=== PATIENT | female | born 1955 | race Caucasian/White ===

== ENCOUNTER → 2018-01-01 15:35 | Outpatient (CLI) | payer MEDICARE, SELFPAY ==
--- NOTE | 2018-01-01 15:37 | RAD_ITS ---
STUDY: X-RAY - LUMBOSACRAL SPINE REASON FOR EXAM: Female, 62 years old. Low back pain TECHNIQUE: 7 view(s) of the lumbosacral spine were obtained. Flexion and extension views obtained COMPARISON: 04/12/2017 FINDINGS: No significant change. Normal lumbar lordosis. There is no substantial scoliosis. There is normal alignment of the vertebrae. Decreased range of motion with flexion and extension but no subluxations. Normal vertebral bodies and endplates. Degenerative disc disease at L5-S1, stable. Otherwise normal disc space heights. Electrical lead runs into the spinal canal at the level of L2-L3. Normal bilateral sacral ala, sacroiliac joints, and visualized sacrum. There is atherosclerotic calcification of the abdominal aorta without a demonstrated aneurysm. Stable right common iliac stent RAD/L/S Spine Comp/w Bending Views IMPRESSION: No change. No acute abnormality. Degenerative disc disease at L5-S1. Electronically Signed: Mika Hanley MD at 23:51 EST , Service support ,
== END ==
PROVIDERS: Visit Provider Orthopaedic Surgery
DX: M54.5 Low back pain (principal)
CPT/HCPCS: 72114

== ENCOUNTER → 2018-01-16 15:58 | Outpatient (CLI) | payer MEDICARE, SELFPAY ==
--- NOTE | 2018-01-16 16:06 | MRI_ITS ---
STUDY: MRI LUMBAR SPINE WITHOUT CONTRAST REASON FOR EXAM: Female, 62 years old. Back pain which radiates down the right TECHNIQUE: Standardized fat and water weighted pulse sequences were obtained in the sagittal and axial planes. COMPARISON: None FINDINGS: There is a 19 degrees lumbar scoliosis with convexity to the left. There is normal alignment of the vertebrae. There are no acute fractures and no abnormal marrow infiltrative processes. There is narrowing of the L5-S1 disc space. The rest of the disc spaces are of normal height and signal intensity. The conus medullaris terminates at L1. T12-L1: Normal endplates. Normal disc height, hydration and morphology. Normal bilateral facet joints. Normal central canal and bilateral lateral recesses. Normal bilateral intervertebral neural foramina. Normal lumbar lordosis. There is no substantial scoliosis. Normal conus medullaris that terminates at the L1-2: Normal endplates. Normal disc height, hydration and morphology. Normal bilateral facet joints. Normal central canal and bilateral lateral recesses. Normal bilateral intervertebral neural foramina. L2-3: Normal endplates. Normal disc height, hydration and morphology. Normal bilateral facet joints. Normal central canal and bilateral lateral recesses. Normal bilateral intervertebral neural foramina. L3-4: Normal endplates. Normal disc height, hydration and morphology. Normal bilateral facet joints. Normal central canal and bilateral lateral recesses. Normal bilateral intervertebral neural foramina. L4-5: Normal endplates. Normal disc height, hydration and morphology. Normal bilateral facet joints. Normal central canal and bilateral lateral recesses. Normal bilateral intervertebral neural foramina. L5-S1: Disc space narrowing with Modic endplate changes and small marginal osteophytes but no focal disc protrusion or extrusion and no central canal stenosis. Minimal degenerative changes involving the facet joints.. 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 No focal disc protrusions or extrusions and no central canal stenosis. A mild 19 degree lumbar scoliosis with convexity to the left Electronically Signed: Erasmo Lagunas, at 4:45 EST Tel , Service support ,
== END ==
PROVIDERS: Visit Provider Orthopaedic Surgery
DX: M54.5 Low back pain (principal); R53.1 Weakness
CPT/HCPCS: 72148

== ENCOUNTER → 2018-01-28 11:10 | Outpatient (CLI) | payer MEDICARE, SELFPAY ==
[2018-01-28 14:07] LABS: Absolute Lymphocyte Count 1.57 X10^3/ul (0.83-4.51); Absolute Neutrophil Count 7.3 X10^3/uL (2.0-7.7); Basophil# 0.03 X10^3/uL; Basophil% 0.3 % (0-1); Eosinophil# 0.12 X10^3/uL; Eosinophils% 1.2 % (0-5); Hemoglobin 15.1 g/dl (12.0-15.0); Lymphocyte # 1.57 X10^3/ul (4.0); Lymphocyte % 15.8 % (19-41); Mean Corp Hgb Conc 33.6 g/gl (32-36); Mean Corpuscular Hgb 29.8 pg (27.0-32.0); Mean Corpuscular Volume 88.9 fL (81-99); Mean Platelet Vol. 10.7 fl (6.2-12.0); Monocyte# 0.85 X10^3/uL; Monocyte% 8.6 % (0-10); Neutrophil % 73.7 % (47-70); Platelet Count 201 K/mm3 (150-450); RBC Distribution Width CV 14.3 % (11.6-14.6); RBC Distribution Width SD 46.1 fl (35.1-43.9); Red Blood Count 5.06 M/mm3 (4.2-5.4); White Blood Count 9.9 K/mm3 (4.4-11.0)
[2018-01-28 14:08] LABS: POSITIVE COUNT NO; POSITIVE DIFFERENTIAL NO; POSITIVE MORPHOLOGY NO
[2018-01-28 14:33] LABS: Vitamin B12 534 pg/mL (211-911); Vitamin D,25 Hydroxy 51.2 ng/mL (29.95-100.01)
[2018-01-28 14:37] LABS: AST(SGOT) 20 U/L (15-37); Alanine Aminotransfer ALT/SGPT 30 U/L (13-56); Albumin, Serum 3.7 g/dL (3.2-5.0); Alkaline Phosphatase 128 U/L (45-117); Anion Gap 10 (5-15); BUN 19 mg/dL (7-18); BUN/Creat Ratio 28.6 RATIO (10-20); CRP 4.81 mg/L (0.0-3.0); Calcium,Total 8.9 mg/dL (8.5-10.1); Chloride 105 mmol/L (98-107); Creatinine, Serum 0.66 mg/dL (0.55-1.02); EST Glomerular Filtration Rate 95 mL/min (>60); Est Glom Filt Rate - Afr Amer 115 mL/min (>60); Ferritin 75 ng/mL (8-252); Free T3 2.2 pg/mL (2.18-3.98); Globulin 3.8 g/dL (2.2-4.2); Glucose 86 mg/dL (74-106); Iron 82 ug/dL (50-170); Protein, Total 7.5 g/dL (6.4-8.2); Sodium Level 140 mmol/L (136-145); T4 Free Direct 1.25 ng/dL (0.76-1.46); Thyroid Stim Hormone (TSH) 0.81 uIU/mL (0.358-3.74)
[2018-01-28 14:45] LABS: PTHIN 49.5 pg/mL (18.4-80.1)
[2018-01-30 14:34] LABS: ANTINUCLEAR ANTIBODIES DIRECT Negative (Negative)
[2018-02-03 06:22] LABS: Copper, Serum or Plasma 123 ug/dL (72-166); Vitamin A, Retinol 48 ug/dL (26-82)
== END ==
PROVIDERS: Family Provider Family Medicine; PCP Family Medicine; Visit Provider Family Medicine
DX: I25.10 Atherosclerotic heart disease of native coronary artery without angina pectoris (principal); E03.9 Hypothyroidism, unspecified; G62.9 Polyneuropathy, unspecified; E55.9 Vitamin D deficiency, unspecified; L65.9 Nonscarring hair loss, unspecified
CPT/HCPCS: 36415; 80053; 82306; 82525; 82607; 82728; 82746; 83540; 83970; 84439; 84443; 84481; 84590; 85025; 86038; 86140

== ENCOUNTER 2018-02-01 17:22 | Emergency (ER) | payer MEDICARE, SELFPAY ==
[2018-02-01 17:23] VITALS: BP 116/91; PULSE 98; RESP 16; TEMP 36.8; O2SAT 97; BMI 22.8
--- NOTE | 2018-02-01 18:52 | CT_ITS ---
STUDY: CT ABDOMEN AND PELVIS WITH CONTRAST REASON FOR EXAM: Female, 62 years old. Right groin pain and low back pain. History of coronary artery disease with carotid surgery and brain aneurysm coiling. TECHNIQUE: Transaxial images were obtained from the dome of the diaphragm to the symphysis pubis without oral contrast. 100 ml of Isovue 300 contrast was administered. Sagittal and coronal images were reconstructed. Individualized dose optimization techniques were used for this CT. COMPARISON: None. FINDINGS: Multifocal linear areas of atelectasis or scarring at the left lung base. The visualized portions of the heart are within normal limits. Normal liver. Status post cholecystectomy with mild compensatory dilatation of the bile ducts. Negative for visualized filling defect. Normal spleen. Normal pancreas. Normal bilateral adrenal glands. Normal right kidney. Normal left kidney. Normal visualized stomach. Normal small intestine. Minimal diverticulosis. Otherwise normal colon without evidence of acute diverticulitis. There is non-visualization of the appendix. There is diffuse atherosclerotic calcification of the abdominal aorta, without a demonstrated aneurysm. Endovascular stent of the right common iliac artery. Severe atheromatous changes of the bilateral iliac arteries. There is probably a stenotic lesion at the distal end of the right iliac stent. Normal inferior vena cava. Normal urinary bladder. There is absence of the uterus consistent with a prior hysterectomy. Normal abdominal wall. There are diffuse degenerative changes of the visualized lumbar spine with a mild levoscoliosis. Epidural device enters at the L1 level extending into the thoracic area ending out of the field of view. CT/Abdomen/Pelvis W IV Cont ONLY IMPRESSION: Multifocal linear areas of atelectasis or scarring at the left lung base. Status post cholecystectomy with mild compensatory dilatation of the bile ducts without filling defect. No acute bowel related findings. Negative for evidence of obstruction, perforation or inflammatory bowel changes. Minimal diverticulosis without diverticulitis. The appendix is not visualized. Normal size of the kidneys bilaterally without hydronephrosis, renal, ureteral or bladder stones. Status post cholecystectomy. Negative for a groin mass, focal fluid collection or abscess. Atherosclerotic vascular changes as described above. Degenerative changes of the lumbar spine primarily at the L5-S1 level. Mild levoscoliosis. Electronically Signed: Citlaly Escalante MD at 20:06 EDT , Service support ,
--- NOTE | 2018-02-01 19:07 | ED.VISSUMM ---
- ER Visit Summary Date of Service: 02/01/18 Chief Complaint: Right lower quadrant abdominal pain History of Present Illness: The patient is a 62 F presenting with right lower quadrant abdominal pain, groin pain. She states this has been going on for the last week. She denies any injury or heavy lifting. She has not felt a bulge in her groin. She has a history of sciatica and is awaiting back surgery. She denies bowel or bladder incontinence. Denies fever. Denies other complaints. History of cholecystectomy and appendectomy. Physical Examination: Vitals are stable. Patient is afebrile. Alert no acute distress. HEENT exam is unremarkable. Neck is supple. Lungs are clear and equal bilaterally. Heart is regular rate and rhythm. Abdomen is soft right inguinal tenderness with no hernia palpated, mild suprapubic tenderness, no rebound or guarding Extremities are unremarkable. Skin is warm and dry. Remainder of exam is unremarkable. Emergency Department Course and Treatment: Patient is given Dilaudid, Zofran with improvement. CBC, chemistries unremarkable. CT abdomen pelvis shows no acute process. Urinalysis shows 0-5 white blood cells. Advised to follow-up with primary care physician Dr. Benton. Advised return to ED if worsening complaints. Disposition: Discharge home Impression: Right groin pain, chronic back pain This note was generated with [employer] dictation software. It may contain incorrect words, spelling, and punctuation that were not noted in review of the chart prior to signing ED Disposition - Plan for ED Patient: Chief Complaint: Abd Pain Instructions: ED Abdominal Pain Unkn Cause, ED Sciatica Referrals: Daron Benton MD [Primary Care Provider] -
[2018-02-01 19:13] VITALS: BP 148/83; PULSE 70; RESP 16; O2SAT 98
[2018-02-01] MEDS: Ondansetron 4 MG/2 ML Vial IV (19:15)
[2018-02-01] MEDS: HYDROmorphone 1 MG/ML Syringe 0.5 MG IV (19:15)
[2018-02-01 19:29] LABS: Absolute Lymphocyte Count 0.98 X10^3/ul (0.83-4.51); Basophil# 0.02 X10^3/uL; Basophil% 0.3 % (0-1); Eosinophils% 1.4 % (0-5); Hematocrit 46.2 % (37-47); Hemoglobin 15.4 g/dl (12.0-15.0); Lymphocyte # 0.98 X10^3/ul (4.0); Mean Corp Hgb Conc 33.3 g/gl (32-36); Mean Corpuscular Volume 90.1 fL (81-99); Monocyte# 0.85 X10^3/uL; Monocyte% 12.1 % (0-10); Neutrophil # 5.04 X10^3/uL (2.7-7.7); Neutrophil % 71.9 % (47-70); Platelet Count 177 K/mm3 (150-450); RBC Distribution Width CV 14.1 % (11.6-14.6); RBC Distribution Width SD 46.5 fl (35.1-43.9); Red Blood Count 5.13 M/mm3 (4.2-5.4)
[2018-02-01 19:34] LABS: POSITIVE COUNT NO; POSITIVE DIFFERENTIAL NO; POSITIVE MORPHOLOGY NO
[2018-02-01 20:02] LABS: Anion Gap 8 (5-15); BUN 13 mg/dL (7-18); BUN/Creat Ratio 16.4 RATIO (10-20); Calcium,Total 8.9 mg/dL (8.5-10.1); Chloride 105 mmol/L (98-107); Creatinine, Serum 0.79 mg/dL (0.55-1.02); EST Glomerular Filtration Rate 78 mL/min (>60); Est Glom Filt Rate - Afr Amer 94 mL/min (>60); Estimated Creatinine Clearance 68.23 ml/min; Glucose 97 mg/dL (74-106); Sodium Level 140 mmol/L (136-145)
[2018-02-01 21:09] LABS: Bacteria 0 SEEN /hpf (None Seen); Mucous, Urine 0 SEEN /hpf (<or=2+); Squamous Epithelial Cells - UA 0 SEEN /hpf (5-10)
[2018-02-01 21:34] VITALS: BP 131/71; PULSE 64; RESP 18; O2SAT 97
[2018-02-01 21:43] LABS: Color, Urine Yellow (Yellow); Glucose, Dipstick Normal (Normal); Ketone-Dipstick Negative (Negative); Leukocyte Esterase-Dipstick 25 /ul (Negative); Nitrite-Dipstick Negative (Negative); Occult Blood-Urine 10 /ul (Negative); Protein-Dipstick 15 mg/dl (Negative); Specific Gravity, Urine 1.015 (1.002-1.030); Urine Bilirubin Dipstick Negative (Negative); Urine Clarity Sl. Cloudy (Clear); Urine Urobilinogen Normal (Normal)
[2018-02-01 22:45] LABS: Red Blood Cells-Urine 0-5 SEEN /hpf (0-5); White Blood Cells 0-5 SEEN /hpf (0-5)
--- NOTE | 2018-02-01 22:52 | ED.DEP ---
ED Disposition - Plan for ED Patient: Chief Complaint: Abd Pain Instructions: ED Abdominal Pain Unkn Cause, ED Sciatica Referrals: Daron Benton MD [Primary Care Provider] -
[2018-02-01] MEDS: oxyCODONE 5 MG Tablet PO (23:09)
[2018-02-01 23:11] VITALS: BP 120/75; PULSE 62; RESP 15; O2SAT 95
== END 2018-02-01 23:14 | disposition home or self-care (01) ==
PROVIDERS: Emergency Provider Emergency Medicine; Family Provider Family Medicine; PCP Family Medicine
DX: R10.31 Right lower quadrant pain (principal); M54.9 Dorsalgia, unspecified; G89.29 Other chronic pain; Z79.02 Long term (current) use of antithrombotics/antiplatelets; Z79.899 Other long term (current) drug therapy; Z72.0 Tobacco use; Z90.49 Acquired absence of other specified parts of digestive tract
CPT/HCPCS: 74177; 80048; 81001; 85025; 96361; 96374; 96375; 99284; J7030; J7040; Q9967; A4216; J2405

== ENCOUNTER → 2018-06-03 14:05 | Outpatient (CLI) | payer MEDICARE, SELFPAY ==
[2018-06-07 03:07] LABS: HSV 1 By PCR Negative (Negative)
[2018-06-07 08:15] LABS: HSV 2 By PCR Negative (Negative); HSV 2 IgG 9.67 index (0.00-0.90); V-Zoster IgG (Immunity) 1777 index (Immune >165); V-Zoster Virus Acute IgM < 0.91 index (0.00-0.90)
== END ==
PROVIDERS: Family Provider Family Medicine; PCP Family Medicine; Visit Provider Family Medicine
DX: B00.89 Other herpesviral infection (principal)
CPT/HCPCS: 36415; 86695; 86696; 86787; 87529

== ENCOUNTER → 2018-06-24 13:35 | Outpatient (CLI) | payer MEDICARE, SELFPAY ==
[2018-06-24 13:52] VITALS: BP 121/69; PULSE 67; RESP 18; TEMP 36.6; O2SAT 97; BMI 22.1
== END ==
PROVIDERS: Family Provider Family Medicine; PCP Family Medicine; Visit Provider Psychiatry & Neurology Neurology
DX: G35 Multiple sclerosis (principal)
CPT/HCPCS: 96365; J7050; A4216; J2930

== ENCOUNTER → 2018-06-25 13:39 | Outpatient (CLI) | payer MEDICARE, SELFPAY ==
[2018-06-25 14:02] VITALS: BP 143/72; PULSE 77; RESP 16; TEMP 36.9; O2SAT 95; BMI 22.1
== END ==
PROVIDERS: Family Provider Family Medicine; PCP Family Medicine; Visit Provider Psychiatry & Neurology Neurology
DX: G35 Multiple sclerosis (principal)
CPT/HCPCS: 96365; J7050; A4216; J2930

== ENCOUNTER → 2018-06-26 12:49 | Outpatient (CLI) | payer MEDICARE, SELFPAY ==
[2018-06-26 13:04] VITALS: BP 107/63; PULSE 62; RESP 16; TEMP 36.7; O2SAT 97
== END ==
PROVIDERS: Family Provider Family Medicine; PCP Family Medicine; Visit Provider Psychiatry & Neurology Neurology
DX: G35 Multiple sclerosis (principal)
CPT/HCPCS: 96374; J7050; A4216; J2930

== ENCOUNTER → 2018-06-27 13:58 | Outpatient (CLI) | payer MEDICARE, SELFPAY ==
[2018-06-27 14:27] VITALS: BP 133/74; PULSE 57; RESP 16; TEMP 36.2; O2SAT 96; BMI 22.1
== END ==
PROVIDERS: Family Provider Family Medicine; PCP Family Medicine; Visit Provider Psychiatry & Neurology Neurology
DX: G35 Multiple sclerosis (principal)
CPT/HCPCS: 96365; J7050; A4216; J2930

== ENCOUNTER → 2018-06-28 13:49 | Outpatient (CLI) | payer MEDICARE, SELFPAY ==
[2018-06-28 14:06] VITALS: BP 149/79; PULSE 51; RESP 16; TEMP 36.6; O2SAT 96
[2018-06-28 14:08] VITALS: BMI 22.8
== END ==
PROVIDERS: Family Provider Family Medicine; PCP Family Medicine; Visit Provider Psychiatry & Neurology Neurology
DX: G35 Multiple sclerosis (principal)
CPT/HCPCS: 96365; A4216; J2930

== ENCOUNTER → 2018-08-07 09:39 | Outpatient (CLI) | payer MEDICARE, SELFPAY ==
--- NOTE | 2018-08-07 09:43 | AAVD_ITS ---
Reason For Study: Aortic atherosclerosis Aorta Measurements Aorta Doppler Measurements Proximal aorta measures1.9 x 1.8cm. in cross- Peak systolic flow velocities within the proximal sectional axis. aorta measure 62.9 cm/sec. Proximal aorta measures1.89cm. in longitudinal Peak systolic flow velocities within the mid axis. aorta measure 94.9 cm/sec. Mid aorta measures1.16 x 1.17cm. in cross- Peak systolic flow velocities within the distal sectional axis. aorta measure 80.3 cm/sec. Mid aorta measures1.15cm. in longitudinal axis. Distal aorta measures.936 x 1.04cm. in cross- sectional axis. Distal aorta measures1.03cm. in longitudinal axis. Left Iliac Artery Left iliac artery measures .601 x .598 cm. in the cross-sectional axis. Left iliac artery measures .541 cm. in the longitudinal axis. Peak systolic velocity in the left iliac artery measures 108 cm/sec. Right Iliac Artery Right iliac artery measures .519 x .472 cm. in the cross-sectional axis. Right iliac artery measures .504 cm. in the longitudinal axis. Peak systolic velocity in the right iliac artery measures 313 cm/sec. Procedure The exam was diagnostic. Exam performed in department. Interpretation Summary 1. No aortic aneurysm or stenosis. 2. Right AGATA with psv 313. 3. Left AGATA nl. Ordering Physician: Kam Nava Performed By: Von Rodriguez RVT
--- NOTE | 2018-08-14 08:29 | LEAS ---
Arterial Study - Arterial Study Arterial Study: Date of scan 08/07/[address] Nava Interpretation: Right lower extremity pulsatile flow noted at the ankle out to the digits the duplex shows biphasic flow both vessels. JAY 0.78 at the PT 0.9 for the DP digit brachial index 0.74. Left lower extremity pulsatile flow noted out from the ankle up to the digits. Duplex is biphasic flow of both vessels at the ankle. JAY 0.77 in the PT 0.8 for the DP. Digit brachial index 0.88 next Interpretation: 1. Right lower extremity mild arterial occlusive disease at rest with biphasic flow and an JAY 0.94. 2. Left lower extremity mild arterial occlusive disease at rest with an JAY 0.84
== END ==
PROVIDERS: Family Provider Family Medicine; PCP Family Medicine; Visit Provider Surgery Vascular Surgery
DX: I70.213 Atherosclerosis of native arteries of extremities with intermittent claudication, bilateral legs (principal); I70.0 Atherosclerosis of aorta; I77.1 Stricture of artery
CPT/HCPCS: 93922; 93978

== ENCOUNTER 2018-08-12 12:04 | Emergency (ER) | payer MEDICARE, SELFPAY ==
[2018-08-12 12:04] VITALS: BP 113/59; PULSE 109; RESP 14; TEMP 36.1; O2SAT 97; BMI 22.1
--- NOTE | 2018-08-12 12:15 | ED.RN ---
pt has n/t and pain to left arm/hand after picking up dog yesterday. has tried heat with no relief.
[2018-08-12] MEDS: HYDROmorphone 1 MG/ML Syringe IM (12:58)
--- NOTE | 2018-08-12 14:12 | ED.VISSUMM ---
- ER Visit Summary Date of Service: 08/12/18 Chief Complaint: Left arm pain History of Present Illness: The patient is a [address] Daron Benton. She reports that yesterday she lifted up her dog and had the abrupt onset of a sharp pain in her entire left arm. This is from her shoulder all the way down to her fingertips. She reports that she has paresthesias in an ulnar distribution. Patient reports that it is a sharp pain is 10 out of 10 with movement 8 out of 10 at rest. She did not fall and she denies any other injuries. On review of systems patient complains of a boil on her left buttock. She denies any constitutional symptoms. No fever, chills, nausea, or vomiting. Physical Examination: Vitals: Stable. Afebrile. General: Well-nourished and well-developed. Head: Normocephalic atraumatic. Neck: Supple, no lymphadenopathy. No JVD. Nontender. Cardiovascular: Regular rate and rhythm. No murmurs. Respiratory: No respiratory distress. Clear to auscultation bilaterally. Abdominal: Soft, nontender, nondistended, normal bowel sounds. No guarding, rebound, or peritoneal signs. Back: Nontender. Extremities: Moderate tenderness to palpation from her hand all the way up to her elbow. There is no localized tenderness. She has a palpable radial pulse. There is less than 2 second capillary refill. She has a paresthesias in an ulnar distribution. She has mild diffuse tenderness palpation over her arm. She has no pain with range of motion. Skin: Left buttock inferior medially there is a 3 cm x 2 cm area of erythema with central fluctuance. Neurologic: Alert and oriented ?3. Cranial nerves II through XII are intact. Normal strength and sensation. Psych: Normal affect. Emergency Department Course and Treatment: Patient was given a dose of Dilaudid IM. She had an I&D performed. She tolerated this well. An [facility] report was obtained which shows that she has had 11 prescriptions for opiates in the past year. Currently she is getting 2 oxycodone a day from Dr. Daron Benton. Treatment Plan: Patient will have her oxycodone increased over the next few days. She is given a prescription for 12 oxycodone. She is instructed to follow-up with Dr. Dorman in 2 days for a wound check. Follow-up Dr. Benton in 3-5 days if her arm is not improving. Return to the emergency department for any worsening symptoms. Disposition: To home in improved and stable condition. Impression: 1. Left buttock sebaceous cyst. 2. I&D. 3. Left arm pain, acute. Procedure Note: Abscess was cleansed with chlorhexidine soap. Anesthetized with 1% lidocaine without epinephrine. An incision was made with an 11 scalpel blade. A moderate amount of pus was drained. Curved hemostats were used to break up loculations. The wound was copiously irrigated with normal saline. It was loosely packed with iodoform gauze. The patient tolerated it well. This note was generated with [employer] dictation software. It may contain incorrect words, spelling, and punctuation that were not noted in review of the chart prior to signing ED Disposition - Plan for ED Patient: Disposition: Home or Assisted Living Chief Complaint: Numb/Ting Instructions: ED Cyst Sebaceous Infec IandD, ED Strain Muscle Ext Prescriptions: Oxycodone HCl/Acetaminophen [Percocet 5/325] 1 tablet PO Q6H PRN PRN 3 Days #12 tablet PRN Reason: Pain Referrals: Daron Benton MD [Primary Care Provider] - 3-5 Days if not improving Kirk Dorman MD [STAFF PHYSICIAN] - 2 Days for wound check
== END 2018-08-12 14:23 | disposition home or self-care (01) ==
LOC: ED 12:57
PROVIDERS: Emergency Provider Emergency Medicine; Family Provider Family Medicine; PCP Family Medicine
DX: L72.3 Sebaceous cyst (principal); M79.602 Pain in left arm; R20.2 Paresthesia of skin; G35 Multiple sclerosis; M81.0 Age-related osteoporosis without current pathological fracture; Z72.0 Tobacco use; Z79.02 Long term (current) use of antithrombotics/antiplatelets; Z79.891 Long term (current) use of opiate analgesic; Z79.899 Other long term (current) drug therapy; Z86.73 Personal history of transient ischemic attack (TIA), and cerebral infarction without residual deficits
CPT/HCPCS: 10060; 96372; 99283

== ENCOUNTER → 2018-09-02 11:26 | Outpatient (CLI) | payer MEDICARE, SELFPAY ==
[2018-09-02 12:30] LABS: BUN 14 mg/dL (7-18); Creatinine, Serum 0.84 mg/dL (0.55-1.02); EST Glomerular Filtration Rate 72 mL/min (>60); Est Glom Filt Rate - Afr Amer 87 mL/min (>60)
== END ==
PROVIDERS: Family Provider Family Medicine; PCP Family Medicine; Referring Provider Surgery Vascular Surgery; Visit Provider Surgery Vascular Surgery
DX: I65.23 Occlusion and stenosis of bilateral carotid arteries (principal); I70.1 Atherosclerosis of renal artery; I70.213 Atherosclerosis of native arteries of extremities with intermittent claudication, bilateral legs; G35 Multiple sclerosis; I25.10 Atherosclerotic heart disease of native coronary artery without angina pectoris; E07.9 Disorder of thyroid, unspecified; F17.200 Nicotine dependence, unspecified, uncomplicated; Z86.73 Personal history of transient ischemic attack (TIA), and cerebral infarction without residual deficits
CPT/HCPCS: 36415; 82565; 84520

== ENCOUNTER → 2018-09-05 08:22 | Outpatient (CLI) | payer MEDICARE, SELFPAY ==
--- NOTE | 2018-09-05 08:24 | CT_ITS ---
STUDY: CTA NECK WITH CONTRAST REASON FOR EXAM: Female, 63 years old. CAROTID STENOSIS F/U SURG 6 YRS AGO, HAD PREV RT TOTAL CAROTID STENOSIS. RADIATION DOSAGE (If Supplied By Facility): CTDIvol = ( 20.51 ) mGy, DLP = ( 487.58 ) mGycm TECHNIQUE: CT angiography with multi-detector data acquisition was performed from the aortic arch to the skull base following intravenous administration of 100 ml of Isovue 370 contrast. MIP images were reconstructed from the axial data set. Post-processing of the angiographic images was performed, with multiplanar reformation and 3D reconstruction. Individualized dose optimization techniques were used for this CT. COMPARISON: August 21, 2017 FINDINGS: AORTIC ARCH: Normal visualized aortic arch. 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 RIGHT CAROTID ARTERIES: Normal right common carotid artery (CCA). There is mild atherosclerotic plaque formation with minimal narrowing of the right carotid bulb. Normal origin of the right internal carotid (ICA) artery without a hemodynamically significant stenosis. Normal visualized cervical portion of the right internal carotid artery. Normal origin of the right external carotid artery (ECA). LEFT CAROTID ARTERIES: Normal left common carotid artery (CCA). There is mild atherosclerotic plaque formation with minimal narrowing of the left carotid bulb. Normal origin of the left internal carotid (ICA) artery without a hemodynamically significant stenosis. Normal visualized cervical portion of the left internal carotid artery. Normal origin of the left external carotid artery (ECA). VERTEBRAL ARTERIES: Normal bilateral vertebral arteries. There is a patent right common carotid to left common carotid bypass graft CT/CTA Neck W/WO Contrast IMPRESSION: Stable examination. Occluded right brachiocephalic artery. Patent common carotid arteries bypass graft. Electronically Signed: Srinivas Bowen MD at 8:39 EDT Tel , Service support ,
== END ==
PROVIDERS: Family Provider Family Medicine; PCP Family Medicine; Referring Provider Surgery Vascular Surgery; Visit Provider Surgery Vascular Surgery
DX: I65.23 Occlusion and stenosis of bilateral carotid arteries (principal); I70.1 Atherosclerosis of renal artery; I70.213 Atherosclerosis of native arteries of extremities with intermittent claudication, bilateral legs; G35 Multiple sclerosis; I25.10 Atherosclerotic heart disease of native coronary artery without angina pectoris; E07.9 Disorder of thyroid, unspecified; Z72.0 Tobacco use; Z86.73 Personal history of transient ischemic attack (TIA), and cerebral infarction without residual deficits
CPT/HCPCS: 70498; Q9967

== ENCOUNTER 2018-09-10 10:04 | Emergency (ER) | payer MEDICARE, SELFPAY ==
[2018-09-10 10:05] VITALS: BP 140/91; PULSE 86; RESP 18; TEMP 36.6; O2SAT 98; BMI 21.7
--- NOTE | 2018-09-10 10:32 | ED.DCSUM_ITS ---
- ER Visit Summary Date of Service: 09/10/18 Chief Complaint: Headache History of Present Illness: The patient is a 63 F presenting for evaluation secondary to headache. Patient reports that she has a underlying history of migraine headaches. She has not had one for quite some time, but reports that she had a gradual onset of 1 at about 2 AM today. She reports that it is a frontal throbbing stabbing type headache associated with photophobia nausea and vomiting. Patient reports that she has oxycodone at home which she took one and it did not seem to alleviate her symptoms. She denies any recent head injuries fevers neck stiffness rashes numbness weakness or visual changes associated with this. Review of systems otherwise negative. Physical Examination: Vital signs: Within normal limits General: Well-nourished well-developed no acute distress Head: Normocephalic atraumatic, no temporal artery tenderness or vesicular rash noted. No sinus tenderness to percussion. Eyes: PERRLA, EOMI. Direct funduscopy difficult due to photophobia. Neck: Supple, no lymphadenopathy, no JVD no meningismus. Negative Brudzinski, Kernig, jolt, and heel strike Cardiovascular: Heart regular rate and rhythm no murmurs Respiratory: Lung sounds clear to auscultation bilaterally no respiratory distress Abdomen: Soft, nontender Extremities: Nontender, no edema Skin: Normal color, no rash, no evidence of petechia Neuro: Alert and oriented ?4, cranial nerves II through XII intact, normal strength, sensation Test Results: None indicated Emergency Department Course and Treatment: Patient presented secondary to headache. Signs and symptoms and physical exam are not concerning for meningitis intracranial process or any other significant etiology that would require workup. Seems consistent with a migraine. Patient was treated with Benadryl Compazine Toradol and a liter of saline. Repeat evaluation at 11 AM showed patient to have significant improvement. Patient was discharged with outpatient follow-up with primary care as needed. Disposition: Discharge Impression: 1. Migraine headache, not intractable, without status migrainosus This note was generated with [employer] software. It may contain incorrect words, spelling, and punctuation that were not noted in review of the chart prior to signing ED Disposition - Plan for ED Patient: Disposition: Home or Assisted Living Chief Complaint: Headache Diagnosis: Migraine headache Instructions: ED Headache Migraine Referrals: Daron Benton MD [Primary Care Provider] - As Needed
[2018-09-10] MEDS: 0.9% Normal Saline 1,000 ML 999 ML IV (10:44)
[2018-09-10] MEDS: Ketorolac 30 MG/ML Syringe IV (10:44)
[2018-09-10] MEDS: proCHLORPERazine 10 MG/2 ML Vial IV (10:44)
[2018-09-10] MEDS: DiphenhydrAMINE 50 MG/ML Syringe 25 MG IV (10:44)
== END 2018-09-10 11:47 | disposition home or self-care (01) ==
PROVIDERS: Emergency Provider Emergency Medicine; Family Provider Family Medicine; PCP Family Medicine
DX: G43.909 Migraine, unspecified, not intractable, without status migrainosus (principal); G35 Multiple sclerosis; M19.90 Unspecified osteoarthritis, unspecified site; Z72.0 Tobacco use; Z79.02 Long term (current) use of antithrombotics/antiplatelets; Z79.891 Long term (current) use of opiate analgesic; Z79.899 Other long term (current) drug therapy
CPT/HCPCS: 96361; 96374; 96375; 99283; J7030; A4216

== ENCOUNTER 2018-09-25 05:26 | Observation (INO) | payer MEDICARE, SELFPAY ==
[2018-09-25] VITALS (14 sets, daily range): BP systolic 124–169; BP diastolic 65–106; PULSE 51–75; RESP 14–23; TEMP 36.3–36.6; O2SAT 94–100; BMI 23.5; BMI 21.7; BMI 21.8
--- NOTE | 2018-09-25 05:30 | EKG12_ITS ---
Test Reason : CP Blood Pressure : / mmHG Vent. Rate : 059 BPM Atrial Rate : 059 BPM P-R Int : 162 ms QRS Dur : 082 ms QT Int : 496 ms P-R-T Axes : 057 036 054 degrees QTc Int : 491 ms Sinus bradycardia Prolonged QT Abnormal ECG Confirmed by OTILIA FOX, MAYI ([id number]), online editor LOUANN LOO ([id number]) on 09/26/2018 3:44:01 PM Referred By: DR THOMPSON Confirmed By:MAYI BINGHAM MD
--- NOTE | 2018-09-25 05:30 | RAD_ITS ---
STUDY: X-RAY CHEST REASON FOR EXAM: Female, 63 years old. Chest pain TECHNIQUE: Single AP portable view of the chest. COMPARISON: 01/24/2015 FINDINGS: There are superimposed monitor leads. Mild interstitial prominence in the lung bases with hyperinflation of upper and mid lung duarte seen to a similar degree on previous examination. Vague density in the left base. The costophrenic angle possibly faintly seen on previous examination. This may be due to scarring or atelectasis. Small nodule is not excluded. There is no demonstrated pleural abnormality. Normal size heart. Normal mediastinum and david. Normal visualized pulmonary arteries. Normal visualized aortic arch and descending thoracic aorta. There are diffuse degenerative changes of the visualized thoracic spine. Normal visualized ribs, clavicles, and shoulders. There is no demonstrated abnormality of the visualized soft tissue structures of the upper abdomen. RAD/Chest 1 View (Portable) IMPRESSION: Density in the left basal is more pronounced on current examination. Comparison with previous CT abdomen pelvis as most recent lung base assessment is recommended. These were requested and once made available, an addendum report will be generated. Suspect component of COPD. No pulmonary edema, congestive heart failure or confluent pneumonia. Electronically Signed: Maryuri Weaver MD at 6:02 EST , Service support ,
--- NOTE | 2018-09-25 05:30 | ED.RN ---
CALLED FOR EKG PER RN REQUEST, PULLED OLD EKGS FOR
[2018-09-25 05:37] LABS: Absolute Lymphocyte Count 1.36 X10^3/ul (0.83-4.51); Absolute Neutrophil Count 4.2 X10^3/uL (2.0-7.7); Basophil# 0.03 X10^3/uL; Basophil% 0.5 % (0-1); Eosinophil# 0.09 X10^3/uL; Eosinophils% 1.4 % (0-5); Hematocrit 40.7 % (37-47); Hemoglobin 13.9 g/dl (12.0-15.0); Lymphocyte # 1.36 X10^3/ul (4.0); Lymphocyte % 21.2 % (19-41); Mean Corp Hgb Conc 34.2 g/gl (32-36); Mean Corpuscular Hgb 29.3 pg (27.0-32.0); Mean Corpuscular Volume 85.9 fL (81-99); Mean Platelet Vol. 9.2 fl (6.2-12.0); Monocyte# 0.73 X10^3/uL; Monocyte% 11.4 % (0-10); Neutrophil # 4.18 X10^3/uL (2.7-7.7); Neutrophil % 65.2 % (47-70); Platelet Count 231 K/mm3 (150-450); RBC Distribution Width CV 14.1 % (11.6-14.6); RBC Distribution Width SD 43.9 fl (35.1-43.9); Red Blood Count 4.74 M/mm3 (4.2-5.4); White Blood Count 6.4 K/mm3 (4.4-11.0)
[2018-09-25] MEDS: 0.9% Normal Saline 1,000 ML 150 ML IV (05:37)
--- NOTE | 2018-09-25 05:39 | ED.DCSUM_ITS ---
- ER Visit Summary Date of Service: 09/25/18 Chief Complaint: Chest pain History of Present Illness: The patient is a 63 F who reports waking from sleep at 330 this morning with burning and tightness in the central portion of her chest. She initially thought it was reflux. She tried taking some Pepto-Bism ol, drink water, and sat upright in a chair without improvement. EMS was called. IV line was established and patient was given sublingual nitro. Pain improved from an 8 to a 5 with one sublingual nitro in route. Patient does have a history of peripheral vascular disease and has an iliac artery stent along with bilateral carotid endarterectomy and stent. Patient denies prior cardiac stent or RI. Per prior cardiology note it appears the patient had some mild coronary artery disease on last cath in 2014. Physical Examination: Blood pressure is 160/94, other vitals normal. Patient is sitting upright in bed. She is in no acute distress. Heart is regular rate and rhythm. Lung sounds are clear. Abdomen is soft and nontender. Lower extremity examination reveals no calf tenderness or edema. Test Results: Chest x-ray shows chronic changes. EKG is sinus at [address] change. CBC and chemistry studies normal. Troponin is less than 0.015 . Emergency Department Course and Treatment: Patient had been given aspirin with EMS along with one nitro. She was given 2 additional sublingual nitro here. Following nitroglycerin her pain is much improved and she currently rates it a 2 out of 10. Patient be given Tylenol for headache along with a dose of Protonix. She will be admitted for cycling of enzymes and further cardiac evaluation if needed. Treatment Plan: [] Disposition: Admit Impression: Chest pain This note was generated with [employer] dictation software. It may contain incorrect words, spelling, and punctuation that were not noted in review of the chart prior to signing ED Disposition - Plan for ED Patient: Chief Complaint: Chest Pain Referrals: Daron Benton MD [Primary Care Provider] -
[2018-09-25 05:41] LABS: POSITIVE COUNT NO; POSITIVE DIFFERENTIAL NO; POSITIVE MORPHOLOGY NO
[2018-09-25 05:54] LABS: Anion Gap 12 (5-15); BUN 12 mg/dL (7-18); BUN/Creat Ratio 18.6 RATIO (10-20); Calcium,Total 8.5 mg/dL (8.5-10.1); Chloride 109 mmol/L (98-107); Creatinine, Serum 0.65 mg/dL (0.55-1.02); EST Glomerular Filtration Rate 98 mL/min (>60); Est Glom Filt Rate - Afr Amer 119 mL/min (>60); Estimated Creatinine Clearance 81.85 ml/min; Glucose 102 mg/dL (74-106); Potassium 3.6 mmol/L (3.5-5.1); Sodium Level 144 mmol/L (136-145)
[2018-09-25] MEDS: Acetaminophen 325 MG Tablet 650 MG PO (06:00)
--- NOTE | 2018-09-25 06:36 | HP.PCM_ITS ---
Problem List (1) Atypical chest pain Status: Acute (2) Carotid bypass surgery Status: Chronic (3) Brain aneurysm coil surgery Status: Chronic (4) right iliac stent Status: Chronic (5) History of partial thyroidectomy Status: Resolved Comment: left thyroid lobectomy with isthmusectomy (6) Chronic pain syndrome Status: Chronic (7) Chest pain Status: Chronic (8) Angina pectoris Status: Chronic (9) CAD (coronary artery disease) Status: Chronic Qualifiers: (10) PVD (peripheral vascular disease) Status: Chronic (11) HLD (hyperlipidemia) Status: Chronic Qualifiers: History of Present Illness Date of Admission: 09/25/18 Chief Complaint: Chest pain today The patient is a 63 year old F with history of coronary artery disease, right carotid occlusion status post carotid bypass surgery, CVA with cerebral aneurysm coiled respiratory and right iliac a stent by Dr. Nava, MS came to ER with sudden onset of chest pain that woke her up at 3:30 AM. The chest pain pe rsisted and radiated to her neck. She further said she had cold about 2 weeks ago and she is mild short of breath. No near syncope or syncope or diaphoresis. In ED, chest pain relief with nitro sublingual. EKG shows sinus bradycardia at 59 bpm. She had a nuclear stress test in February 2014 and was negative. 2D echo in February 2014 shows EF 65% with mild concentric LVH. Normal left ventricle systolic function. Normal right and left atria. Normal right ventricle. [] Past Medical History Past Medical History (Chronic Problems): Chronic Problems (Last Reviewed 08/14/18 @ 14:20 by Latrice Holland) Carotid bypass surgery (Chronic) Brain aneurysm coil surgery (Chronic) right iliac stent (Chronic) Chronic pain syndrome (Chronic) Chest pain (Chronic) Angina pectoris (Chronic) CAD (coronary artery disease) (Chronic) PVD (peripheral vascular disease) (Chronic) HLD (hyperlipidemia) (Chronic) Medical History: Medical History (Last Reviewed 08/14/18 @ 14:20 by Latrice Holland) Chronic pain syndrome (Chronic) Chest pain (Chronic) R07.9 Angina pectoris (Chronic) I20.9 CAD (coronary artery disease) (Chronic) I25.10 PVD (peripheral vascular disease) (Chronic) I73.9 HLD (hyperlipidemia) (Chronic) E78.5 Fatty liver K76.0 GERD (gastroesophageal reflux disease) K21.9 Goiter E04.9 History of transient ischemic attack (TIA) Z86.73 Hypertension I10 Multiple sclerosis G35 Osteoarthritis M19.90 Osteoporosis M81.0 Psoriasis L40.9 Psoriatic arthritis L40.50 Thrombocytopenia D69.6 History of hysterectomy Z90.710 Allergies colestipol [From Colestid] Allergy (Mild, Verified 09/25/18 05:35) unknown pregabalin [From Lyrica] Allergy (Mild, Verified 09/25/18 05:35) Hives temazepam [From Restoril] Adverse Reaction (Mild, Verified 09/25/18 05:35) Nausea/Vom/Diarrhea Antihistamines - Alkylamine Adverse Reaction (Verified 09/25/18 05:35) Nausea/Vom/Diarrhea Antihistamines - Ethanolamine Adverse Reaction (Verified 09/25/18 05:35) Nausea/Vom/Diarrhea Antihistamines - Ethylenediamine Adverse Reaction (Verified 09/25/18 05:35) Nausea/Vom/Diarrhea Antihistamines - Piperazine Adverse Reaction (Verified 09/25/18 05:35) Nausea/Vom/Diarrhea Antihistamines - Piperidine Adverse Reaction (Verified 09/25/18 05:35) Nausea/Vom/Diarrhea aspirin Adverse Reaction (Verified 09/25/18 05:35) I'M ON BLOOD THINNERS codeine Adverse Reaction (Verified 09/25/18 05:35) Nausea morphine Adverse Reaction (Verified 09/25/18 05:35) Nausea Xsujkmk-Mab-Prz Reductase Inhibitor Adverse Reaction (Verified 09/25/18 05:35) Nausea STEROIDS BY MOUTH Adverse Reaction (Uncoded 09/25/18 05:35) Upset Stomach Home Medications: Ambulatory Orders Medication Instructions Recorded Cholecalciferol (Vitamin D3) 5,000 unit PO DAILY 12/16/13 [Vitamin D3] Oxycodone [Oxyir] 5 mg PO BID 02/01/18 clopidogrel 75 mg tablet 75 mg PO QODAY #90 tab 05/31/18 baclofen 10 mg tablet 50 mg PO Q6H tab 07/16/18 gabapentin 800 mg tablet 800 mg PO TID tab 07/16/18 levothyroxine 75 mcg tablet 50 mcg PO DAILY tab 07/17/18 Magnesium Oxide [Magnesium] 400 mg PO DAILY 09/24/18 Surgical History: Surgical History (Last Reviewed 08/14/18 @ 14:20 by Latrice Holland) History of partial thyroidectomy (Resolved) Onset Date: ~11/30/05 Z98.890 left thyroid lobectomy with isthmusectomy Brain aneurysm I67.1 s/p coiling January 2014 History of bilateral carotid endarterectomy Onset Date: ~2012 Z98.890 History of section Z98.891 X2 History of hemorrhoidectomy Z98.890 Fracture of right lower leg S82.91XA due to fall H/O hemorrhoidectomy Z98.890 H/O: Z98.891 x2 History of left breast biopsy Z98.890 S/P hysterectomy Z90.710 S/P insertion of iliac artery stent Z95.828 right common 08/25/2015 S/P thyroidectomy E89.0 left with isthmusectomy Surgical History: - - Carotid endarterectomy, partial thyroidectomy, , hysterectomy, cholecystectomy Smoking Status: Current every day smoker - *Family History Maternal Family History: Family History (Last Reviewed 08/14/18 @ 14:20 by Latrice Holland) Mother Cancer CAD (coronary artery disease) Brain tumor Grandfather CVA (cerebral vascular accident) Father CAD (coronary artery disease) Ruptured abdominal aortic aneurysm (AAA) Sister Brain aneurysm History Items: No pertinent history Paternal Family History: Family History (Last Reviewed 08/14/18 @ 14:20 by Latrice Holland) Mother Cancer CAD (coronary artery disease) Brain tumor Grandfather CVA (cerebral vascular accident) Father CAD (coronary artery disease) Ruptured abdominal aortic aneurysm (AAA) Sister Brain aneurysm History Items: Heart Disease Review of Systems Constitutional: Denies: Chills, Fever, Weight Change HEENT: Denies: Head Aches, Sinus Congestion, Sinus Drainage Cardiovascular: Reports: Chest Pain. Denies: Palpitations Respiratory: Reports: Shortness of Breath. Denies: Cough, Shortness of breath at rest, Sputum production Gastrointestinal: Denies: Abdominal Pain, Nausea, Vomiting Genitourinary: Denies: Dysuria Musculoskeletal: Reports: Back Pain, Joint Pain. Denies: Joint Tenderness Skin: Denies: Rash, Wounds Neurological: Reports: Balance problems. Denies: Focal weakness, Numbness, Tingling Psychiatric: Denies: Anxiety, Depression, Homicidal Ideations, Suicidal Ideati ons Hematologic/ Lymphatic: Denies: Easy Bruising, Easy Bleeding VTE Information - Inpt Only VTE Present on Admission: No VTE Mechan Device Prophylaxis: None VTE Pharm Prophylaxis ordered?: Yes Patient Problems: Active and Suspected Problems (Last Reviewed 08/14/18 @ 14:20 by Latrice Holland) Atypical chest pain (Acute) - Physical Exam General: Alert, Oriented x3, Cooperative HEENT: Atraumatic, PERRLA, EOMI, Normocephalic Neck: Supple, No JVD, Negative Carotid Bruits, - - Carotid surgery scar present on both side of neck. Lungs: Clear to auscultation, Normal air movement, No rhonchi, No wheeze, No rales Cardiovascular: Regular Rhythm, Normal S1, Normal S2, No murmurs, Bradycardic Abdomen: Bowel Sounds Present, Soft, Non Tender, Non-Distended Extremities: No edema, Capillary Refill Less than 3 Seconds Skin: No rashes, No breakdown Musculoskeletal: No Tenderness to Palpation of Joints or Extremities Neurological: Cranial nerves II-XII grossly intact Psych/Mental Status: Normal Affect, Appropriate Vital Signs Temp Pulse Resp BP Pulse Ox 97.5 F L 56 L 16 161/106 H 98 09/25/18 05:27 09/25/18 06:24 09/25/18 06:24 09/25/18 06:24 09/25/18 06:24 Oxygen Flow Rate (L/min) 2 Oxygen Delivery Method Nasal Cannula Weight: 145 lb 8.081 oz Body Mass Index (BMI) 23.5 Laboratory Tests Past 24 Hrs 09/25/18 09/25/18 05:30 05:30 WBC 6.4 RBC 4.74 Hgb 13.9 Hct 40.7 MCV 85.9 MCH 29.3 MCHC 34.2 RDW 14.1 RDW Differential 43.9 Plt Count 231 MPV 9.2 Immature Gran % (Auto) 0.300 Neut % (Auto) 65.2 Lymph % (Auto) 21.2 [place] % (Auto) 11.4 H Eos % (Auto) 1.4 Baso % (Auto) 0.5 Absolute Neuts (auto) 4.2 Absolute Lymphs (auto) 1.36 Total Counted Not Reportable Sodium 144 Potassium 3.6 Chloride 109 H Carbon Dioxide 23.0 Anion Gap 12 BUN 12 Creatinine 0.65 Estim Creat Clear Calc 81.85 Est GFR (MDRD) Af Amer 119 Est GFR (MDRD) Non-Af 98 BUN/Creatinine Ratio 18.6 Glucose 102 Calcium 8.5 Troponin I < 0.015 Assessment/Plan All Active Problems (Last Reviewed 08/14/18 @ 14:20 by Latrice Holland) Atypical chest pain (Acute) History of partial thyroidectomy (Resolved ~11/30/05) The patient is a 63 year old F with history of coronary artery disease, right carotid occlusion status post carotid bypass surgery, CVA with cerebral aneurysm coiled respiratory and right iliac a stent by Dr. Nava, MS came to ER with sudden onset of chest pain that woke her up at 3:30 AM. The chest pain persisted and radiated to her neck. She further said she had cold about 2 weeks ago and she is mild short of breath. No near syncope or syncope or diaphoresis. In ED, chest pain relief with nitro sublingual. EKG shows sinus bradycardia at 59 bpm. She had a nuclear stress test in February 2014 and was negative. 2D echo in February 2014 shows EF 65% with mild concentric LVH. Normal left ventricle systolic function. Normal right and left atria. Normal right ventricle. 1. Atypical chest pain concerning for unstable angina: Patient has significant history of peripheral arterial disease involving carotids, iliac artery and CVA. Patient is being admitted in PCU. Serial troponin enzymes. EKG ordered. C ontinue Plavix. Nitro sublingual as needed for chest pain. Nuclear stress test tomorrow morning. 2. Coronary artery disease, peripheral artery disease, CVA, carotid artery disease and right iliac stent: Patient follows Dr. Nava supposed to have angiogram of lower extremities next month. Recent carotid ultrasound in November 2017 shows moderate 50-69% stenosis in the right extracranial ICA and mild less than 50% and left ICA. Arterial duplex study of lower extremities of July 2014 shows mild arterial occlusive disease at the right lower extremity with JAY 0.94. LLE mild atherosclerotic disease with JAY 0.84. 3. Hypothyroidism with history of left thyroid lobectomy with isthmusectomy: TSH and free T4 ordered. Continue Synthroid. 4. Chronic back pain, MS, uses cane, dyslipidemia: Home medication reconciliation done. DVT prophylaxis: On Lovenox 40 mg subcu daily. Code Visit OBSV E&M: 77879 Initial observation care L3
--- NOTE | 2018-09-25 06:39 | EKG12_ITS ---
Test Reason : Blood Pressure : / mmHG Vent. Rate : 049 BPM Atrial Rate : 049 BPM P-R Int : 156 ms QRS Dur : 092 ms QT Int : 528 ms P-R-T Axes : 053 026 039 degrees QTc Int : 476 ms Sinus bradycardia Possible Left atrial enlargement Borderline ECG When compared with ECG of 25-SEP-2018 05:32, MANUAL COMPARISON REQUIRED, DATA IS UNCONFIRMED Confirmed by OTILIA FOX, MAYI ([id number]), social media editor LOUANN LOO ([id number]) on 09/26/2018 3:55:10 PM Referred By: BRIGETTE Confirmed By:MAYI BINGHAM MD
[2018-09-25 07:14] LABS: T4 Free Direct 1.47 ng/dL (0.76-1.46); Thyroid Stim Hormone (TSH) 1.85 uIU/mL (0.358-3.74)
[2018-09-25 07:30] LABS: Prothrombin Time (Protime)PT. 12.7 SECONDS (11.7-14.9)
[2018-09-25 07:31] LABS: Partial Thromboplast Time 28.9 Seconds (24.1-36.2)
[2018-09-25 08:21] LABS: Absolute Lymphocyte Count 1.02 X10^3/ul (0.83-4.51); Absolute Neutrophil Count 4.9 X10^3/uL (2.0-7.7); Basophil# 0.02 X10^3/uL; Basophil% 0.3 % (0-1); Eosinophil# 0.06 X10^3/uL; Eosinophils% 0.9 % (0-5); Hematocrit 40.5 % (37-47); Hemoglobin 13.4 g/dl (12.0-15.0); Lymphocyte # 1.02 X10^3/ul (4.0); Lymphocyte % 15.5 % (19-41); Mean Corp Hgb Conc 33.1 g/gl (32-36); Mean Corpuscular Volume 87.7 fL (81-99); Mean Platelet Vol. 9.4 fl (6.2-12.0); Monocyte# 0.52 X10^3/uL; Monocyte% 7.9 % (0-10); Neutrophil # 4.93 X10^3/uL (2.7-7.7); Neutrophil % 75.1 % (47-70); Platelet Count 223 K/mm3 (150-450); RBC Distribution Width CV 14.2 % (11.6-14.6); RBC Distribution Width SD 45.3 fl (35.1-43.9); Red Blood Count 4.62 M/mm3 (4.2-5.4); White Blood Count 6.6 K/mm3 (4.4-11.0)
[2018-09-25 08:32] LABS: POSITIVE COUNT NO; POSITIVE DIFFERENTIAL NO; POSITIVE MORPHOLOGY NO
[2018-09-25] MEDS: oxyCODONE 5 MG Tablet PO ×2 (08:40→13:51)
[2018-09-25] MEDS: Ondansetron 4 MG/2 ML Vial IV (10:42)
[2018-09-25] MEDS: 0.9% NaCl Peripheral Flush Adult/Peds IV (10:42)
[2018-09-25] MEDS: 0.9% Normal Saline 1,000 ML 100 ML IV (10:42)
--- NOTE | 2018-09-25 13:44 | DCINST_ITS ---
- Discharge Diagnoses Current Active Problems: Current Active and Chronic Problems (Last Reviewed 08/14/18 @ 14:20 by Latrice Holland) Atypical chest pain (Acute) Carotid bypass surgery (Chronic) Brain aneurysm coil surgery (Chronic) right iliac stent (Chronic) You will use the following diet at home:: No restrictions Discharge Activity: May not drive while taking narcotic pain medications. Instructions: ED Chest Pain NonCardiac Allergies/Adverse Reactions: Allergies colestipol [From Colestid] Allergy (Mild, Verified 09/25/18 05:35) unknown pregabalin [From Lyrica] Allergy (Mild, Verified 09/25/18 05:35) Hives temazepam [From Restoril] Adverse Reaction (Mild, Verified 09/25/18 05:35) Nausea/Vom/Diarrhea Antihistamines - Alkylamine Adverse Reaction (Verified 09/25/18 05:35) Nausea/Vom/Diarrhea Antihistamines - Ethanolamine Adverse Reaction (Verified 09/25/18 05:35) Nausea/Vom/Diarrhea Antihistamines - Ethylenediamine Adverse Reaction (Verified 09/25/18 05:35) Nausea/Vom/Diarrhea Antihistamines - Piperazine Adverse Reaction (Verified 09/25/18 05:35) Nausea/Vom/Diarrhea Antihistamines - Piperidine Adverse Reaction (Verified 09/25/18 05:35) Nausea/Vom/Diarrhea aspirin Adverse Reaction (Verified 09/25/18 05:35) I'M ON BLOOD THINNERS codeine Adverse Reaction (Verified 09/25/18 05:35) Nausea morphine Adverse Reaction (Verified 09/25/18 05:35) Nausea Niaxhrt-Tqw-Naj Reductase Inhibitor Adverse Reaction (Verified 09/25/18 05:35) Nausea STEROIDS BY MOUTH Adverse Reaction (Uncoded 09/25/18 05:35) Upset Stomach Medications to take at Discharge Cholecalciferol (Vitamin D3) [Vitamin D3] 5,000 unit PO DAILY 12/16/13 Oxycodone [Oxyir] 5 mg PO BID 02/01/18 clopidogrel 75 mg tablet 75 mg PO QODAY #90 tab 05/31/18 baclofen 10 mg tablet 50 mg PO Q6H tab 07/16/18 gabapentin 800 mg tablet 800 mg PO TID tab 07/16/18 levothyroxine 75 mcg tablet 50 mcg PO DAILY tab 07/17/18 Magnesium Oxide [Magnesium] 400 mg PO DAILY 08/12/18 Pantoprazole Sodium [Protonix] 40 mg PO DAILY #30 tablet 09/25/18 The following prescriptions were given: Pantoprazole Sodium [Protonix] 40 mg PO DAILY #30 tablet Primary Care Physician: Daron Benton MD [Primary Care Provider] - Please follow up with your Primary Care Physician in: in 5-7 days Test Results: Test results from this visit will be discussed in further detail at your follow- up appointment, if applicable. Proposed Discharge Date: 09/25/18
--- NOTE | 2018-09-25 13:47 | PCM.DC.SUM ---
Discharge Date and Diagnosis - Problem List Patient Problems: Active and Suspected Problems (Last Reviewed 08/14/18 @ 14:20 by Latrice Holland) Atypical chest pain (Acute) Date of Admission: 09/25/18 Date of Discharge: 09/25/18 - Primary Discharge Diagnosis Active and Suspected Problems (Last Reviewed 08/14/18 @ 14:20 by Latrice Holland) Atypical chest pain (Acute) - Secondary Discharge Diagnosis Chronic Problems (Last Reviewed 08/14/18 @ 14:20 by Latrice Holland) Carotid bypass surgery (Chronic) Brain aneurysm coil surgery (Chronic) right iliac stent (Chronic) Chronic pain syndrome (Chronic) Chest pain (Chronic) Angina pectoris (Chronic) CAD (coronary artery disease) (Chronic) PVD (peripheral vascular disease) (Chronic) HLD (hyperlipidemia) (Chronic) Hospital Course and Treatment Imaging Results: 09/25/18 05:30 Chest 1 View (Portable) [RAD] Stat 09/25/18 05:55 Nuclear Stress Test - Chemical [NM] AM (NON MEDS) Summary of Care Provided: The patient is a 63 year old F who presented with atypical chest pain. 1. Atypical chest pain: Patient was placed on a monitored bed did rule out OH with serial cardiac enzymes underwent subsequent evaluation with a nuclear stress test which is negative for stress-induced ischemia. Was discharged home on a trial of PPI instructed to follow-up with PCP for subsequent care. 2. Peripheral vascular disease with carotid artery bypass surgery 3. Hypothyroidism-patient is on levothyroxine home dose continued 4. Multiple sclerosis 5. Dyslipidemia 6. Chronic back pain 7. DVT prophylaxis SC Lovenox Patient Problems: Active and Suspected Problems (Last Reviewed 08/14/18 @ 14:20 by Latrice Holland) Atypical chest pain (Acute) - Physical Exam General: Alert HEENT: Atraumatic Neck: Supple Lungs: Clear to auscultation Cardiovascular: Regular rate Extremities: No clubbing Neurological: Neuro grossly intact Vital Signs Temp Pulse Resp BP Pulse Ox 98 F 75 16 124/65 H 96 09/25/18 12:46 09/25/18 12:46 09/25/18 12:46 09/25/18 12:46 09/25/18 12:46 Oxygen Flow Rate (L/min) 2 Oxygen Delivery Method Room Air Weight: 61.2 kg Body Mass Index (BMI) 21.7 Laboratory Tests Past 24 Hrs 09/25/18 09/25/18 09/25/18 05:30 05:30 05:30 WBC 6.4 RBC 4.74 Hgb 13.9 Hct 40.7 MCV 85.9 MCH 29.3 MCHC 34.2 RDW 14.1 RDW Differential 43.9 Plt Count 231 MPV 9.2 Immature Gran % (Auto) 0.300 Neut % (Auto) 65.2 Lymph % (Auto) 21.2 [place] % (Auto) 11.4 H Eos % (Auto) 1.4 Baso % (Auto) 0.5 Absolute Neuts (auto) 4.2 Absolute Lymphs (auto) 1.36 Total Counted Not Reportable PT INR APTT Sodium 144 Potassium 3.6 Chloride 109 H Carbon Dioxide 23.0 Anion Gap 12 BUN 12 Creatinine 0.65 Estim Creat Clear Calc 81.85 Est GFR (MDRD) Af Amer 119 Est GFR (MDRD) Non-Af 98 BUN/Creatinine Ratio 18.6 Glucose 102 Calcium 8.5 Troponin I < 0.015 TSH 1.85 Free T4 1.47 H 09/25/18 09/25/18 09/25/18 05:30 08:12 08:12 WBC 6.6 RBC 4.62 Hgb 13.4 Hct 40.5 MCV 87.7 MCH 29.0 MCHC 33.1 RDW 14.2 RDW Differential 45.3 H Plt Count 223 MPV 9.4 Immature Gran % (Auto) 0.300 Neut % (Auto) 75.1 H Lymph % (Auto) 15.5 L [place] % (Auto) 7.9 Eos % (Auto) 0.9 Baso % (Auto) 0.3 Absolute Neuts (auto) 4.9 Absolute Lymphs (auto) 1.02 Total Counted Not Reportable PT 12.7 INR 1.0 APTT 28.9 Sodium Potassium Chloride Carbon Dioxide Anion Gap BUN Creatinine Estim Creat Clear Calc Est GFR (MDRD) Af Amer Est GFR (MDRD) Non-Af BUN/Creatinine Ratio Glucose Calcium Troponin I < 0.015 TSH Free T4 09/25/18 11:15 WBC RBC Hgb Hct MCV MCH MCHC RDW RDW Differential Plt Count MPV Immature Gran % (Auto) Neut % (Auto) Lymph % (Auto) [place] % (Auto) Eos % (Auto) Baso % (Auto) Absolute Neuts (auto) Absolute Lymphs (auto) Total Counted PT INR APTT Sodium Potassium Chloride Carbon Dioxide Anion Gap BUN Creatinine Estim Creat Clear Calc Est GFR (MDRD) Af Amer Est GFR (MDRD) Non-Af BUN/Creatinine Ratio Glucose Calcium Troponin I < 0.015 TSH Free T4 Discharge Diet: No Restrictions Discharge Activity: May not drive while taking narcotic pain medications. Home Medications: Medications to take at Discharge Cholecalciferol (Vitamin D3) [Vitamin D3] 5,000 unit PO DAILY 12/16/13 Oxycodone [Oxyir] 5 mg PO BID 02/01/18 clopidogrel 75 mg tablet 75 mg PO QODAY #90 tab 05/31/18 baclofen 10 mg tablet 20 mg PO Q6H tab 07/16/18 gabapentin 800 mg tablet 800 mg PO TID tab 07/16/18 levothyroxine 75 mcg tablet 50 mcg PO DAILY tab 07/17/18 Magnesium Oxide [Magnesium] 400 mg PO DAILY 08/12/18 Pantoprazole Sodium [Protonix] 40 mg PO DAILY #30 tablet 09/25/18 Following Prescrptions Were Given to Patient: Pantoprazole Sodium [Protonix] 40 mg PO DAILY #30 tablet Primary Care Physician: Daron Benton MD [Primary Care Provider] - Please follow up with your Primary Care Physician in: in 5-7 days Patient Instructions: ED Chest Pain NonCardiac Medical Necessity - Tobacco Use Smoking Status: Current every day smoker Meaningful Use Info Meaningful Use Diagnoses (Choose all that apply): None applicable Code Visit OBSV E&M: 12856 Observ/hosp same date L3
[2018-09-25] MEDS: Baclofen 10 MG Tablet 20 MG PO (13:54)
[2018-09-25] MEDS: Gabapentin 800 MG Tablet PO (13:54)
--- NOTE | 2018-09-25 17:14 | STRESSREP_ITS ---
Stress Test Report Exercise myocardial perfusion stress test. 63-year-old lady with a history of chest pain. Stress protocol: Resting EKG demonstrates sinus bradycardia with a rate of 57 bpm normal intervals and noted resting blood pressure 160/78 mmHg. 0.4 mg of regadenoson was infused per usual protocol followed by rapid intravenous saline flush inject ion continuous EKG monitoring was performed. The maximum heart rate attained was 100 bpm which was 64% of maximum predicted heart rate the maximum workload attained was 1 metabolic equivalent. At rest there were no ST or T wave changes noted suggest abnormal flow reserve at peak infusion nonspecific ST-T wave changes were noted suggest abnormal flow reserve. The resting blood pressure 160/78 with a final blood pressure 184/104. Myocardial perfusion protocol. 10.6 mCi of technetium 99m sestamibi was injected at rest. 0.4 mg of regadenoson was infused per usual protocol peak infusion 31.3 mCi of technetium 99m sestamibi was injected stress images were obtained stress and rest images were reconstructed and compared in the short axis vertical long horizontal long axis. Gated images were also obtained Perfusion SPECT analysis: Review of the stress images demonstrate normal uptake of tracer noted in all areas of myocardium. The resting images similarly demonstrate normal uptake of tracer noted in all areas of myocardium. No areas of reversibility are noted suggest ischemia. No previous infarct is noted. Gated SPECT analysis: The gated ejection fraction is noted to be 74%. Conclusion: Normal pharmacologic myocardial perfusion stress test. Preserved ejection fraction.
== END 2018-09-25 13:43 | disposition home or self-care (01) ==
LOC: ED 05:49 → PCU 06:22
PROVIDERS: Admitting Provider Internal Medicine; Emergency Provider Emergency Medicine; Family Provider Family Medicine; PCP Family Medicine; Visit Provider Internal Medicine
DX: R07.89 Other chest pain (principal); I25.10 Atherosclerotic heart disease of native coronary artery without angina pectoris; K21.9 Gastro-esophageal reflux disease without esophagitis; G35 Multiple sclerosis; Z79.899 Other long term (current) drug therapy; Z79.02 Long term (current) use of antithrombotics/antiplatelets; E78.5 Hyperlipidemia, unspecified; I73.9 Peripheral vascular disease, unspecified; G89.4 Chronic pain syndrome; Z95.1 Presence of aortocoronary bypass graft; E03.9 Hypothyroidism, unspecified; L40.50 Arthropathic psoriasis, unspecified; M19.90 Unspecified osteoarthritis, unspecified site; Z86.73 Personal history of transient ischemic attack (TIA), and cerebral infarction without residual deficits; K76.0 Fatty (change of) liver, not elsewhere classified; F17.200 Nicotine dependence, unspecified, uncomplicated; R00.1 Bradycardia, unspecified; R94.31 Abnormal electrocardiogram [ECG] [EKG]
CPT/HCPCS: 36415; 71045; 78452; 80048; 84439; 84443; 84484; 85025; 85610; 85730; 93005; 93017; 96361; 96365; 96375; 97802; 99218; 99285; 99406; A9500; J7030; A4216; G0378; J2405; J2785

== ENCOUNTER 2018-10-16 08:37 | Day surgery (SDC) | payer MEDICARE, SELFPAY ==
[2018-09-25 06:25] VITALS: BMI 21.7
[2018-10-15 08:24] VITALS: BMI 21.4
--- NOTE | 2018-10-16 11:22 | PCM.OPRPT ---
Problem List (1) PVD (peripheral vascular disease) Status: Chronic Report of Operation Date of Procedure: 10/16/18 Pre-Operative Diagnosis: 1. Peripheral arterial disease with some aortoiliac recurrent stenosis Post-Operative Diagnosis: The same Surgery/Procedure Performed:: 1. Ultrasound-guided access retrograde left brachial artery. 2. Aortogram with bilateral iliofemoral angiogram. 3. Balloon angioplasty of the right common iliac artery stent with a 7 mm drug-coated balloon. 4. Balloon angioplasty the left external iliac artery to the common femoral artery with a 6 mm drug-coated balloon. Type of Anesthesia:: Sedation,Conscious Description of Procedure: Patient brought to the Patient Services Manager. Underwent the appropriate timeout consent. Underwent sedation. Was prepped and draped in a sterile fashion. We did ultrasound-guided access retrograde in the left brachial artery with a micropuncture and put a Glidewire and. We gave 4000 units of heparin. Put in a short 5 [place] sheath. Using a KMP catheter we got down the descending thoracic aorta to the distal infrarenal aorta. We did an aortogram with bilateral iliofemoral in imaging. This showed some right common iliac artery stenosis and her iliac stent and some left external iliac artery stenosis. We then brought in a long 6 [place] sheath. With the wire down the left side imaged in oblique views. Showed the stenosis through the external iliac into the proximal common femoral. The distal left common femoral profunda SFA were widely patent. The left common iliac artery is widely patent. We then did a 6 x 100 drug-coated balloon through the entire left external iliac artery and most of the common femoral artery. We inflated this for over 2-1/2 minutes. Completion was much improved there was slight dissection proximally but [id number] in much better flow throughout this artery down to the common femoral. We then pulled the sheath and wire back and using the KMP guide into the right common iliac artery. We then viewed and oblique imaging showing the stenosis in the proximal right common iliac and the iliac stent. The external iliac to common femoral profunda and SFA widely patent. We then ballooned through the aortic through the distal common iliac stent with a 7 x 4 drug-coated balloon. Completion was much improved with much better flow throughout this area. She had slight dissection at that proximal common iliac but was good flow through there. We then removed out the sheath and gave 30 of protamine. We then held pressure with good hemostasis she was brought to recovery stable condition Sedation: This 63-year-old female underwent moderate sedation given by Dr. Kam Nava. She was monitored with EKG blood pressure and pulse ox. She tolerated the procedure well. She was given fentanyl and Versed. See the EMR for the complete record.
--- NOTE | 2018-10-16 11:28 | OP.PCM_ITS ---
Problem List (1) PVD (peripheral vascular disease) Status: Chronic Report of Operation Date of Procedure: 10/16/18 Pre-Operative Diagnosis: 1. Peripheral arterial disease with some aortoiliac recurrent stenosis Post-Operative Diagnosis: The same Surgery/Procedure Performed:: 1. Ultrasound-guided access retrograde left brachial artery. 2. Aortogram with bilateral iliofemoral angiogram. 3. Balloon angioplasty of the right common iliac artery stent with a 7 mm drug- coated balloon. 4. Balloon angioplasty the left external iliac artery to the common femoral artery with a 6 mm drug-coated balloon. Type of Anesthesia:: Sedation,Conscious Description of Procedure: Patient brought to the [employer] [facility] [employer] [employer] [facility]. Underwent the appropriate timeout consent. Underwent sedation. Was prepped and draped in a sterile fashion. We did ultrasound-guided access retrograde in the left brachial artery with a micropuncture and put a Glidewire and. We gave 4000 units of heparin. Put in a short 5 [place] sheath. Using a KMP catheter we got down the descending thoracic aorta to the distal infrarenal aorta. We did an aortogram with bilateral iliofemoral in imaging. This showed some right common iliac artery stenosis and her iliac stent and some left external iliac artery stenosis. We then brought in a long 6 [place] sheath. With the wire down the left side imaged in oblique views. Showed the stenosis through the external iliac into the proximal common femoral. The distal left common femoral profunda SFA were widely patent. The left common iliac artery is widely patent. We then did a 6 x 100 drug-coated balloon through the entire left external iliac artery and most of the common femoral artery. We inflated this for over 2-1/2 minutes. Completion was much improved there was slight dissection proximally but [id number] in much better flow throughout this artery down to the common femoral. We then pulled the sheath and wire back and using the KMP guide into the right common iliac artery. We then viewed and oblique imaging showing the stenosis in the proximal right common iliac and the iliac stent. The external iliac to common femoral profunda and SFA widely patent. We then ballooned through the aortic through the distal common iliac stent with a 7 x 4 drug-coated balloon. Completion was much improved with much better flow throughout this area. She had slight dissection at that proximal common iliac but was good flow through there. We then removed out the sheath and gave 30 of protamine. We then held pressure with good hemostasis she was brought to recovery stable condition Sedation: This 63-year-old female underwent moderate sedation given by Dr. Kam Nava. She was monitored with EKG blood pressure and pulse ox. She tolerated the procedure well. She was given fentanyl and Versed. See the EMR for the complete record.
--- OUTSIDE RECORDS SUMMARY | 2018-12-11 13:55 | XMS RPT_ITS ---
:1955 Author Organization OHIP Support Name Relationship Address Phone D Unavailable Unavailable Unavailable BHAVIK HONG Unavailable Unavailable + [place] [address] STEFANKO, LOLA Unavailable Unavailable + [place] [address] D Unavailable Unavailable Unavailable STESEMAJ BHAVIK Unavailable Unavailable + [place] [address] STEFANRADHA, LOLA Unavailable Unavailable + [place] [address] D Unavailable Unavailable Unavailable STESEMAJ BHAVIK Unavailable Unavailable + [place] [address] STESEMAJ, LOLA Unavailable Unavailable + [place] [address] D Unavailable Unavailable Unavailable STEFANRADHA BHAVIK Unavailable Unavailable + [place] [address] STEFANKO, LOLA Unavailable Unavailable + [place] [address] D Unavailable Unavailable Unavailable STESEMAJ BHAVIK Unavailable Unavailable + [place] [address] STEFANKO, LOLA Unavailable Unavailable + [place] [address] D Unavailable Unavailable Unavailable STESEMAJ BHAVIK Unavailable Unavailable + [place] [address] STEFANRADHA, LOLA Unavailable Unavailable + [place] [address] D Unavailable Unavailable Unavailable STESEMAJ BHAVIK Unavailable Unavailable + [place] [address] HAL LOLA Unavailable Unavailable + [place] [address] D Unavailable Unavailable Unavailable HAL BHAVIK Unavailable . + [place] [address] HAL LOLA Unavailable . + [place] [address] D Unavailable Unavailable Unavailable BHAVIK HONG Unavailable Unavailable + [place] [address] STESEMAJ LOLA Unavailable Unavailable + [place] [address] D Unavailable Unavailable Unavailable STEBHAVIK CHA Unavailable Unavailable + [place] [address] LOLA HONG Unavailable Unavailable + [place] [address] D Unavailable Unavailable Unavailable STEFANBHAVIK GARCIA Unavailable 1 + [place] [address] STEFANLOLA GARCIA Unavailable 1 + [place] [address] D Unavailable Unavailable Unavailable STEFANBHAVIK GARCIA Unavailable Unavailable + LOLA HONG Unavailable Unavailable + D Unavailable Unavailable Unavailable BHAVIK HONG Unavailable Unavailable + LOLA HONG Unavailable Unavailable + D Unavailable Unavailable Unavailable BHAVIK HONG Unavailable Unavailable + LOLA HONG Unavailable Unavailable + D Unavailable Unavailable Unavailable BHAVIK HONG Unavailable Unavailable + LOLA HONG Unavailable Unavailable + D Unavailable Unavailable Unavailable BHAVIK HONG Unavailable Unavailable + LOLA HONG Unavailable Unavailable + D Unavailable Unavailable Unavailable BHAVIK HONG Unavailable Unavailable + LOLA HONG Unavailable Unavailable + D Unavailable Unavailable Unavailable STEBHAVIK CHA Unavailable UNKNOWN + [place] [address] LOLA HONG Unavailable [address] + [place] [address] D Unavailable Unavailable Unavailable STEFANBHAVIK GARCIA Unavailable UNKNOWN + [place] [address] STESEMAJ LOLA Unavailable [address] + [place] [address] D Unavailable Unavailable Unavailable STEFANBHAVIK GARCIA Unavailable Unavailable + LOLA HONG Unavailable Unavailable + D Unavailable Unavailable Unavailable STEBHAVIK CHA Unavailable Unavailable + LOLA HONG Unavailable Unavailable + D Unavailable Unavailable Unavailable STEFANRADHA BHAVIK Unavailable . + [place], [place] . STEFANKO, LOLA Unavailable . + [facility] [place] . D Unavailable Unavailable Unavailable STEFANKO, BHAVIK Unavailable . + [place], [place] . STEDAYNEKO, LOLA Unavailable . + [place] . D Unavailable Unavailable Unavailable STEFANKO, BHAVIK Unavailable . + [place] . STEDAYNEKO, LOLA Unavailable . + [place] . D Unavailable Unavailable Unavailable STEFANKO, BHAVIK Unavailable . + [place] . STEFANKO, LOLA Unavailable . + [place] . Care Team Providers Name Role Phone YOGESH ONOFRE Attending Unavailable YOGESH ONOFRE Referring Unavailable Primay Care Physicia, No Primary Care Unavailable Shefali Parson Attending Unavailable Primay Care Physicia, No Referring Unavailable Primay Care Physicia, No Primary Care Unavailable Parson Shefali Attending Unavailable Primay Care Physicia, No Primary Care Unavailable Parson, Shefali Attending Unavailable Parson, Shefali Referring Unavailable Primay Care Physicia, No Primary Care Unavailable Benton, Daron Attending Unavailable Benton, Daron Primary Care Unavailable Benton, Daron Primary Care Unavailable Randi Grant Attending Unavailable Parson, Shefali Attending Unavailable Primay Care Physicia, No Referring Unavailable Benton, Daron Primary Care Unavailable Benton, Daron Attending Unavailable Benton, Daron Primary Care Unavailable Kristopher Main Attending Unavailable Kristopher Main Referring Unavailable Benton, Daron Primary Care Unavailable Kristopher Main Attending Unavailable BavKristopher mason Referring Unavailable Benton, Daron Primary Care Unavailable BavKristopher mason Attending Unavailable BavKristopher mason Referring Unavailable Benton, Daron Primary Care Unavailable BavKristopher mason Attending Unavailable Bavis, Kristopher Referring Unavailable Benton, Daron Primary Care Unavailable Kristopher Main Attending Unavailable Etelvina, Kristopher Referring Unavailable Benton, Daron Primary Care Unavailable Katia Chi Attending Unavailable Betsey Lindquist Attending Unavailable Primay Care Physicia, No Referring Unavailable Benton, Daron Primary Care Unavailable Kam Nava Attending Unavailable Kam Nava Referring Unavailable Benton, Daron Primary Care Unavailable Benton, Daron Primary Care Unavailable Deon Ramirez Attending Unavailable Trista Contreras PA-C Attending Unavailable Benton, Daron Referring Unavailable Nava, Kam A Attending Unavailable Nava, Kam A Referring Unavailable Benton, Daron Primary Care Unavailable Nava, Kam A Attending Unavailable Nava, Kam A Referring Unavailable Benton, Daron Primary Care Unavailable Benton, Daron Primary Care Unavailable Bhavik Vargas Attending Unavailable Benton, Daron Primary Care Unavailable Jose, Hi Admitting Unavailable Roman Mckeon Attending Unavailable Jose, Hi Admitting Unavailable Jose, Hi Attending Unavailable Benton, Daron Primary Care Unavailable Jose, Hi Consulting Unavailable Nava, Kam A Attending Unavailable Benton, Daron Primary Care Unavailable Nava, Kam A Referring Unavailable Orlando Jacob Attending Unavailable Roman Mckeon Referring Unavailable YOGESH ONOFRE Attending Unavailable ZHANE PARRA Referring Unavailable YOGESH ONOFRE Attending Unavailable KENISHA ZHANE S Referring Unavailable KENISHA, ZHANE S Primary Care Unavailable PROBLEMS PROBLEMS DATE TYPE CONDITION / CODE ATTENDING STATUS SOURCE 10/16/2018 Unknown R07.9 - Chest pain, N[place], [place] Active [place] unspecified / Community R07.9(ICD-10) Hospital Repository 09/02/2018 Unknown I25.10 - NavaMariahtt Active [place] Atherosclerotic A Community heart disease of Hospital [place] coronary Repository artery without angina pectoris / I25.10(ICD-10) 09/02/2018 Unknown E07.9 - Disorder of Nava Kam Active [place] thyroid, unspecified A Community / E07.9(ICD-10) Hospital Repository 09/02/2018 Unknown G35 - Multiple NavaKam Active [place] sclerosis / A Community G35(ICD-10) Hospital Repository 09/02/2018 Unknown F17.200 - Nicotine NavaMariahtt Active [place] dependence, A Community unspecified, Hospital uncomplicated / Repository F17.200(ICD-10) 09/02/2018 Unknown I70.213 - Nava, Kam Active [place] Atherosclerosis of A Community [place] arteries of Hospital extremities with Repository intermittent claudication, bilateral legs / I70.213(ICD-10) 09/02/2018 Unknown I70.1 - Nava, Kam Active [place] Atherosclerosis of A Community renal artery / Hospital I70.1(ICD-10) Repository 09/02/2018 Unknown I65.23 - Occlusion Nava, Kam Active [place] and stenosis of A Community bilateral carotid Hospital arteries / Repository I65.23(ICD-10) 08/12/2018 Unknown L02.91 - Cutaneous [place], Active [place] abscess, unspecified [facility] Community / L02.91(ICD-10) Hospital Repository 06/20/2018 Unknown 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 / Hospital B00.89(ICD-10) Repository 01/01/2018 Unknown M54.5 - Low back ParsonShefali Active [place] pain / M54.5(ICD-10) [facility] Repository 12/23/2016 Active Peripheral vascular YOGESH ONOFRE Active [place] disease, unspecified [facility] Other / I73.9(ICD-10) [place] Repository 12/21/2017 Active Occlusion and YOGESH ONOFRE Active [place] stenosis of [facility] Other bilateral carotid [place] arteries / Repository I65.23(ICD-10) 12/23/2016 Admitting Unknown / YOGESH ONOFRE Active [place] [facility] diagnosis UNK(Unknown) [facility] Repository PROCEDURES PROCEDURES No Procedure Records FoundRESULTS RESULTS OPERATIVE REPORT Observed: 10/16/2018 Status: F Source: [place] 11:28 AM [facility] REPOSITORY [facility] Medical Records Department [address] [place] [address] Operative Report 10/16/18 1122 MR#: [id number] Acct: [id number] Name: ANGÉLICA WALLER Rep #: [id number] : 1955 63 From: Kam Nava MD PCP: Daron Benton MD Status: [facility] Location: [facility] Problem List (1) PVD (peripheral vascular disease) Status: Chronic Report of Operation Date of Procedure: 10/16/18 Pre-Operative Diagnosis: 1. Peripheral arterial disease with some aortoiliac recurrent stenosis Post-Operative Diagnosis: The same Surgery/Procedure Performed:: 1. Ultrasound-guided access retrograde left brachial artery. 2. Aortogram with bilateral iliofemoral angiogram. 3. Balloon angioplasty of the right common iliac artery stent with a 7 mm drug-coated balloon. 4. Balloon angioplasty the left external iliac artery to the common femoral artery with a 6 mm drug- coated balloon. Type of Anesthesia:: Sedation,Conscious Description of Procedure: Patient brought to the [facility]. Underwent the appropriate timeout consent. Underwent sedation. Was prepped and draped in a sterile fashion. We did ultrasound-guided access retrograde in the left brachial artery with a micropuncture and put a Glidewire and. We gave 4000 units of heparin. Put in a short 5 Zimbabwean sheath. Using a KMP catheter we got down the descending thoracic aorta to the distal infrarenal aorta. We did an aortogram with bilateral iliofemoral in imaging. This showed some right common iliac artery stenosis and her iliac stent and some left external iliac artery stenosis. We then brought in a long 6 [place]an sheath. With the wire down the left side imaged in oblique views. Showed the stenosis through the external iliac into the proximal common femoral. The distal left common femoral profunda SFA were widely patent. The left common iliac artery is widely patent. We then did a 6 x 100 drug-coated balloon through the entire left external iliac artery and most of the common femoral artery. We inflated this for over 2-1/2 minutes. Completion was much improved there was slight dissection proximally but ecu-exyj-qwnzdorz in much better flow throughout this artery down to the common femoral. We then pulled the sheath and wire back and using the KMP guide into the right common iliac artery. We then viewed and oblique imaging showing the stenosis in the proximal right common iliac and the iliac stent. The external iliac to common femoral profunda and SFA widely patent. We then ballooned through the aortic through the distal common iliac stent with a 7 x 4 drug-coated balloon. Completion was much improved with much better flow throughout this area. She had slight dissection at that proximal common iliac but was good flow through there. We then removed out the sheath and gave 30 of protamine. We then held pressure with good hemostasis she was brought to recovery stable condition Sedation: This 63-year-old female underwent moderate sedation given by Dr. Kam Nava. She was monitored with EKG blood pressure and pulse ox. She tolerated the procedure well. She was given fentanyl and Versed. See the EMR for the complete record. 10/16/18 1128 <Electronically signed by Kam Nava MD> Date Kam Nava MD CC: Kam Nava MD; Daron Benton MD Signed 12 LEAD ELECTROCARDIOGRAM Observed: 09/26/2018 Status: F Source: [place] 3:55 PM [facility] REPOSITORY [facility] Cardiovascular Services [address] [place] [address] 12 Lead EKG 09/25/18 0647 MR#: [id number] Acct: [id number] Name: ANGÉLICA WALLER R Rep #: [id number] : 1955 63 From: Orlando Jacob MD Attending Dr: Roman Mckeon MD Status: DIS ASHU Ordering Dr: Hi Garcia MD Date: 09/25/18 Location: [facility] Sex: F C Admitted: 09/25/18 Test Reason : Blood Pressure : / mmHG Vent. Rate : 049 BPM Atrial Rate : 049 BPM P-R Int : 156 ms QRS Dur : 092 ms QT Int : 528 ms P-R-T Axes : 053 026 039 degrees QTc Int : 476 ms Sinus bradycardia Possible Left atrial enlargement Borderline ECG When compared with ECG of 25-SEP-2018 05:32, MANUAL COMPARISON REQUIRED, DATA IS UNCONFIRMED Confirmed by ORLANDO JACOB MD ([id number]), health editor LOUANN LOO ([id number]) on 09/26/2018 3:55:10 PM Referred By: JOSE Confirmed By:ORLANDO JACOB MD 09/26/18 1555 Date Orlando Jacob MD CC: Roman Mckeon MD; Daron Benton MD; Hi Garcia MD Signed 12 LEAD ELECTROCARDIOGRAM Observed: 09/26/2018 Status: F Source: [place] 3:44 PM [facility] REPOSITORY [facility] Cardiovascular Services [address] [place] [address] 12 Lead EKG 09/25/18 0532 MR#: [id number] Acct: [id number] Name: ANGÉLICA WALLER R Rep #: [id number] : 1955 63 From: Orlando Jacob MD Attending Dr: Roman Mckeon MD Status: DIS ASHU Ordering Dr: Iona Thompson MD Date: 09/25/18 Location: [facility] Sex: F C Admitted: 09/25/18 Test Reason : CP Blood Pressure : / mmHG Vent. Rate : 059 BPM Atrial Rate : 059 BPM P-R Int : 162 ms QRS Dur : 082 ms QT Int : 496 ms P-R-T Axes : 057 036 054 degrees QTc Int : 491 ms Sinus bradycardia Prolonged QT Abnormal ECG Confirmed by ORLANDO JACOB MD ([id number]), health editor LOUANN LOO ([id number]) on 09/26/2018 3:44:01 PM Referred By: DR THOMPSON Confirmed By:ORLANDO JACOB MD 09/26/18 1544 Date Orlando Jacob MD CC: Roman Mckeon MD; Daron Benton MD; Iona Thompson MD Signed STRESS REPORT Observed: 09/25/2018 Status: F Source: [place] 5:14 PM [facility] REPOSITORY [facility] Cardiovascular Services [address] [place] [address] MR#: [id number] Acct: [id number] Name: ANGÉLICA WALLER Rep #: [id number] : 1955 63 From: Orlando Jacob MD Primary Care: Daron Benton MD Status: DIS ASHU Ordering Dr: Sex: F C Stress Test Report Exercise myocardial perfusion stress test. 63-year-old lady with a history of chest pain. Stress protocol: Resting EKG demonstrates sinus bradycardia with a rate of 57 bpm normal intervals and noted resting blood pressure 160/78 mmHg. 0.4 mg of regadenoson was infused per usual protocol followed by rapid intravenous saline flush injection continuous EKG monitoring was performed. The maximum heart rate attained was 100 bpm which was 64% of maximum predicted heart rate the maximum workload attained was 1 metabolic equivalent. At rest there were no ST or T wave changes noted suggest abnormal flow reserve at peak infusion nonspecific ST-T wave changes were noted suggest abnormal flow reserve. The resting blood pressure 160/78 with a final blood pressure 184/104. Myocardial perfusion protocol. 10.6 mCi of technetium 99m sestamibi was injected at rest. 0.4 mg of regadenoson was infused per usual protocol peak infusion 31.3 mCi of technetium 99m sestamibi was injected stress images were obtained stress and rest images were reconstructed and compared in the short axis vertical long horizontal long axis. Gated images were also obtained Perfusion SPECT analysis: Review of the stress images demonstrate normal uptake of tracer noted in all areas of myocardium. The resting images similarly demonstrate normal uptake of tracer noted in all areas of myocardium. No areas of reversibility are noted suggest ischemia. No previous infarct is noted. Gated SPECT analysis: The gated ejection fraction is noted to be 74%. Conclusion: Normal pharmacologic myocardial perfusion stress test. Preserved ejection fraction. 09/25/181713 <Electronically signed by Orlando Jacob MD> Date Orlando Jacob MD CC: Roman Mckeon MD; Daron Benton MD Date Dictated: 09/25/181711 Date Transcribed: 09/25/181711 State Assessed Properties Director: [place] Signed DISCHARGE SUMMARY Observed: 09/25/2018 Status: F Source: [place] 1:55 PM [facility] REPOSITORY [facility] Medical Records Department [address] [place] [id number] Discharge Summary 09/25/18 1347 MR#: [id number] Acct: [id number] Name: ANGÉLICA WALLER Rep #: [id number] : 1955 63 From: Roman Mckeon MD PCP: Daron Benton MD Status: ADM ASHU Y Location: [place] [address] Discharge Date and Diagnosis - Problem List Patient Problems: Active and Suspected Problems (Last Reviewed 08/14/18 @ 14:20 by Latrice Holland) Atypical chest pain (Acute) Date of Admission: 09/25/18 Date of Discharge: 09/25/18 - Primary Discharge Diagnosis Active and Suspected Problems (Last Reviewed 08/14/18 @ 14:20 by Latrice Holland) Atypical chest pain (Acute) - Secondary Discharge Diagnosis Chronic Problems (Last Reviewed 08/14/18 @ 14:20 by Latrice Holland) Carotid bypass surgery (Chronic) Brain aneurysm coil surgery (Chronic) right iliac stent (Chronic) Chronic pain syndrome (Chronic) Chest pain (Chronic) Angina pectoris (Chronic) CAD (coronary artery disease) (Chronic) PVD (peripheral vascular disease) (Chronic) HLD (hyperlipidemia) (Chronic) Hospital Course and Treatment Imaging Results: 09/25/18 05:30 Chest 1 View (Portable) [RAD] Stat 09/25/18 05:55 Nuclear Stress Test - Chemical [NM] AM (NON MEDS) Summary of Care Provided: The patient is a 63 year old F who presented with atypical chest pain. 1. Atypical chest pain: Patient was placed on a monitored bed did rule out IL with serial cardiac enzymes underwent subsequent evaluation with a nuclear stress test which is negative for stress-induced ischemia. Was discharged home on a trial of PPI instructed to follow-up with PCP for subsequent care. 2. Peripheral vascular disease with carotid artery bypass surgery 3. Hypothyroidism-patient is on levothyroxine home dose continued 4. Multiple sclerosis 5. Dyslipidemia 6. Chronic back pain 7. DVT prophylaxis SC Lovenox Patient Problems: Active and Suspected Problems (Last Reviewed 08/14/18 @ 14:20 by Latrice Holland) Atypical chest pain (Acute) - Physical Exam General: Alert HEENT: Atraumatic Neck: Supple Lungs: Clear to auscultation Cardiovascular: Regular rate Extremities: No clubbing Neurological: Neuro grossly intact Vital Signs Temp Pulse Resp BP Pulse Ox 98 F 75 16 124/65 H 96 09/25/18 12:46 09/25/18 12:46 09/25/18 12:46 09/25/18 12:46 09/25/18 12:46 Oxygen Flow Rate (L/min) 2 Oxygen Delivery Method Room Air Weight: 61.2 kg Body Mass Index (BMI) 21.7 Laboratory Tests Past 24 Hrs WBC RBC Hgb Hct MCV MCH MCHC RDW RDW Differential Plt Count MPV Immature Gran % (Auto) Neut % (Auto) Lymph % (Auto) Discharge Diet: No Restrictions Discharge Activity: May not drive while taking narcotic pain medications. Home Medications: Medications to take at Discharge Cholecalciferol (Vitamin D3) [Vitamin D3] 5,000 unit PO DAILY 12/16/13 Oxycodone [Oxyir] 5 mg PO BID 02/01/18 clopidogrel 75 mg tablet 75 mg PO QODAY #90 tab 05/31/18 baclofen 10 mg tablet 20 mg PO Q6H tab 07/16/18 gabapentin 800 mg tablet 800 mg PO TID tab 07/16/18 levothyroxine 75 mcg tablet 50 mcg PO DAILY tab 07/17/18 Magnesium Oxide [Magnesium] 400 mg PO DAILY 08/12/18 Pantoprazole Sodium [Protonix] 40 mg PO DAILY #30 tablet 09/25/18 Following Prescrptions Were Given to Patient: Pantoprazole Sodium [Protonix] 40 mg PO DAILY #30 tablet Primary Care Physician: Daron Benton MD [Primary Care Provider] - Please follow up with your Primary Care Physician in: in 5- 7 days Patient Instructions: ED Chest Pain NonCardiac Medical Necessity - Tobacco Use Smoking Status: Current every day smoker Meaningful Use Info Meaningful Use Diagnoses (Choose all that apply): None applicable Code Visit OBSV E AND M: 17008 Observ/hosp same date L3 09/25/18 1355 <Electronically signed by Roman Mckeon MD> Date Roman Mckeon MD Cosigner Signature (if applicable): Date CC: Roman Mckeon MD; Daron Benton MD Signed DISCHARGE INSTRUCTION Observed: 09/25/2018 Status: F Source: [place] 1:44 PM [facility] REPOSITORY [facility] Medical Records Department [address] [place] [address] Instructions for Home/Discharge Instructions 09/25/18 1343 MR#: [id number] Acct: [id number] Name: ANGÉLICA WALLER Rep #: [id number] : 1955 63 From: Roman Mckeon MD PCP: Daron Benton MD Status: ADM ASHU - Discharge Diagnoses Current Active Problems: Current Active and Chronic Problems (Last Reviewed 08/14/18 @ 14:20 by Latrice Holland) Atypical chest pain (Acute) Carotid bypass surgery (Chronic) Brain aneurysm coil surgery (Chronic) right iliac stent (Chronic) You will use the following diet at home:: No restrictions Discharge Activity: May not drive while taking narcotic pain medications. Instructions: ED Chest Pain NonCardiac Allergies/Adverse Reactions: Allergies colestipol [From Colestid] Allergy (Mild, Verified 09/25/18 05:35) unknown pregabalin [From Lyrica] Allergy (Mild, Verified 09/25/18 05:35) Hives temazepam [From Restoril] Adverse Reaction (Mild, Verified 09/25/18 05:35) Nausea/Vom/Diarrhea Antihistamines - Alkylamine Adverse Reaction (Verified 09/25/18 05:35) Nausea/Vom/Diarrhea Antihistamines - Ethanolamine Adverse Reaction (Verified 09/25/18 05:35) Nausea/Vom/Diarrhea Antihistamines - Ethylenediamine Adverse Reaction (Verified 09/25/18 05:35) Nausea/Vom/Diarrhea Antihistamines - Piperazine Adverse Reaction (Verified 09/25/18 05:35) Nausea/Vom/Diarrhea Antihistamines - Piperidine Adverse Reaction (Verified 09/25/18 05:35) Nausea/Vom/Diarrhea aspirin Adverse Reaction (Verified 09/25/18 05:35) I'M ON BLOOD THINNERS codeine Adverse Reaction (Verified 09/25/18 05:35) Nausea morphine Adverse Reaction (Verified 09/25/18 05:35) Nausea Nskkpzr-Loh-Jcy Reductase Inhibitor Adverse Reaction (Verified 09/25/18 05:35) Nausea STEROIDS BY MOUTH Adverse Reaction (Uncoded 09/25/18 05:35) Upset Stomach Medications to take at Discharge Cholecalciferol (Vitamin D3) [Vitamin D3] 5,000 unit PO DAILY 12/16/13 Oxycodone [Oxyir] 5 mg PO BID 02/01/18 clopidogrel 75 mg tablet 75 mg PO QODAY #90 tab 05/31/18 baclofen 10 mg tablet 50 mg PO Q6H tab 07/16/18 gabapentin 800 mg tablet 800 mg PO TID tab 07/16/18 levothyroxine 75 mcg tablet 50 mcg PO DAILY tab 07/17/18 Magnesium Oxide [Magnesium] 400 mg PO DAILY 08/12/18 Pantoprazole Sodium [Protonix] 40 mg PO DAILY #30 tablet 09/25/18 The following prescriptions were given: Pantoprazole Sodium [Protonix] 40 mg PO DAILY #30 tablet Primary Care Physician: Daron Benton MD [Primary Care Provider] - Please follow up with your Primary Care Physician in: in 5- 7 days Test Results: Test results from this visit will be discussed in further detail at your follow-up appointment, if applicable. Proposed Discharge Date: 09/25/18 09/25/18 1344 <Electronically signed by Roman Mckeon MD> Date Roman Mckeon MD CC: Daron Benton MD TROPONIN-I Collected: 09/25/2018 Status: F Source: [place] 11:15 AM [facility] REPOSITORY Order Comment: 'TROP' Serial specimen #1, #2 or #3: 3 TYPE CODE TESTS RESULT OUT OF RANGE REFERENCE UNITS LAB L501.4010 <0.045 ng/mL Normal < 0.015 TROPONIN-I Result Comment: TROPONIN-I EXPECTED VALUES <0.045 Negative 0.045 - 0.590 Consistent with Cardiac Damage > OR = 0.600 Critical Value Not every elevated troponin is indicative of IL. These values should be used with clinical judgement in examining the patient's clinical picture for diagnosis. To establish a diagnosis of IL versus myocardial injury, there must be a demonstrated rise and/or fall in the troponin values, in addition to ischemic symptoms, EKG changes, new regional wall motion abnormality, and/or angiographical evidence. PLEASE NOTE: REFERENCE RANGES EDITED 18 Performed By: #### L501.4010 #### [facility] [facility] [address] [place], [address] CBC W/DIFF, AUTOMATED Collected: 09/25/2018 Status: F Source: ZACK 8:12 AM [facility] REPOSITORY TYPE CODE TESTS RESULT OUT OF RANGE REFERENCE UNITS LAB L100.1000 4.4-11.0 K/mm3 Normal WBC 6.6 LAB L100.1200 4.2-5.4 M/mm3 Normal RBC 4.62 LAB L100.1300 12.0-15.0 g/dl Normal HGB 13.4 LAB L100.1400 37-47 % Normal HCT 40.5 LAB L100.1500 81-99 fL Normal MCV 87.7 LAB L100.1600 27.0-32.0 pg Normal MCH 29.0 LAB L100.1700 32-36 g/gl Normal MCHC 33.1 LAB L100.1810 11.6-14.6 % Normal RDW CV 14.2 LAB L100.1820 35.1-43.9 fl High RDW SD 45.3 LAB L100.1900 150-450 K/mm3 Normal PLT 223 LAB L100.2000 6.2-12.0 fl Normal MPV 9.4 LAB L100.2100 47-70 % High NEUT% 75.1 LAB L100.2200 19-41 % Low LY% 15.5 LAB L100.2300 0-10 % Normal MONO% 7.9 LAB L100.2400 0-5 % Normal EO% 0.9 LAB L100.2500 0-1 % Normal BASO% 0.3 LAB L100.2550 0.0-0.9 % Normal IM GRAN % 0.300 Result Comment: IG% - Immature Granulocytes (promyelocytes, myelocytes and metamyelocytes) > 1% indicates that a LEFT SHIFT is Present. LAB L100.2620 2.0-7.7 X10 3/uL Normal Absolute Neut 4.9 LAB L100.2720 0.83-4.51 X10 3/ul Normal Absolute Lymph 1.02 Performed By: #### L100.0100 #### [facility] [address] [place] [address]. [place], [address] TROPONIN-I Collected: 09/25/2018 Status: F Source: ZACK 8:12 AM [facility] REPOSITORY Order Comment: 'TROP' Serial specimen #1, #2 or #3: 2 TYPE CODE TESTS RESULT OUT OF RANGE REFERENCE UNITS LAB L501.4010 <0.045 ng/mL Normal < 0.015 TROPONIN-I Result Comment: TROPONIN-I EXPECTED VALUES <0.045 Negative 0.045 - 0.590 Consistent with Cardiac Damage > OR = 0.600 Critical Value Not every elevated troponin is indicative of IL. These values should be used with clinical judgement in examining the patient's clinical picture for diagnosis. To establish a diagnosis of IL versus myocardial injury, there must be a demonstrated rise and/or fall in the troponin values, in addition to ischemic symptoms, EKG changes, new regional wall motion abnormality, and/or angiographical evidence. PLEASE NOTE: REFERENCE RANGES EDITED 18 Performed By: #### L501.4010 #### [facility] [address] [place], [address] EMERGENCY DEPARTMENT Observed: 09/25/2018 Status: F Source: TOPPING SUMMARY 7:17 AM [facility] REPOSITORY [facility] Medical Records Department [address] [place] [address] Emergency Department Summary 09/25/18 0537 MR#: [id number] Acct: [id number] Name: ANGÉLICA WALLER Rep #: [id number] : 1955 63 From: Iona Thompson MD PCP: Daron Benton MD Status: ADM ASHU - ER Visit Summary Date of Service: 09/25/18 Chief Complaint: Chest pain History of Present Illness: The patient is a 63 F who reports waking from sleep at 330 this morning with burning and tightness in the central portion of her chest. She initially thought it was reflux. She tried taking some Pepto-Bismol, drink water, and sat upright in a chair without improvement. EMS was called. IV line was established and patient was given sublingual nitro. Pain improved from an 8 to a 5 with one sublingual nitro in route. Patient does have a history of peripheral vascular disease and has an iliac artery stent along with bilateral carotid endarterectomy and stent. Patient denies prior cardiac stent or IL. Per prior cardiology note it appears the patient had some mild coronary artery disease on last cath in 2014. Physical Examination: Blood pressure is 160/94, other vitals normal. Patient is sitting upright in bed. She is in no acute distress. Heart is regular rate and rhythm. Lung sounds are clear. Abdomen is soft and nontender. Lower extremity examination reveals no calf tenderness or edema. Test Results: Chest x-ray shows chronic changes. EKG is sinus at [address] change. CBC and chemistry studies normal. Troponin is less than 0.015. Emergency Department Course and Treatment: Patient had been given aspirin with EMS along with one nitro. She was given 2 additional sublingual nitro here. Following nitroglycerin her pain is much improved and she currently rates it a 2 out of 10. Patient be given Tylenol for headache along with a dose of Protonix. She will be admitted for cycling of enzymes and further cardiac evaluation if needed. Treatment Plan: [] Disposition: Admit Impression: Chest pain This note was generated with [employer] dictation software. It may contain incorrect words, spelling, and punctuation that were not noted in review of the chart prior to signing ED Disposition - Plan for ED Patient: Chief Complaint: Chest Pain Referrals: Daron Benton MD [Primary Care Provider] - What to do if you have Problems For any increased pain, shortness of breath, bleeding, nausea or vomiting, chest pain, or any unexpected problems, contact your Primary Care Provider. Call [facility] ([phone]) or report to the closest Emergency Room. Call 911 if necessary. 09/25/18716 <Electronically signed by Iona Thompson MD> Date Iona Thompson MD Cosigner Signature (If Indicated): Date CC: Daron Benton MD HISTORY AND PHYSICAL Observed: 09/25/2018 Status: F Source: TOPPING EXAM 6:43 AM [facility] REPOSITORY [facility] Medical Records Department [address] [place] [address] History and Physical 09/25/18 0629 MR#: [id number] Acct: [id number] Name: ANGÉLICA WALLER Rep #: [id number] : 1955 63 From: Hi Garcia MD PCP: Daron Benton MD Status: ADM ASHU Y Location: [place] [address] Problem List (1) Atypical chest pain Status: Acute (2) Carotid bypass surgery Status: Chronic (3) Brain aneurysm coil surgery Status: Chronic (4) right iliac stent Status: Chronic (5) History of partial thyroidectomy Status: Resolved Comment: left thyroid lobectomy with isthmusectomy (6) Chronic pain syndrome Status: Chronic (7) Chest pain Status: Chronic (8) Angina pectoris Status: Chronic (9) CAD (coronary artery disease) Status: Chronic Qualifiers: (10) PVD (peripheral vascular disease) Status: Chronic (11) HLD (hyperlipidemia) Status: Chronic Qualifiers: History of Present Illness Date of Admission: 09/25/18 Chief Complaint: Chest pain today The patient is a 63 year old F with history of coronary artery disease, right carotid occlusion status post carotid bypass surgery, CVA with cerebral aneurysm coiled respiratory and right iliac a stent by Dr. Nava, MS came to ER with sudden onset of chest pain that woke her up at 3:30 AM. The chest pain persisted and radiated to her neck. She further said she had cold about 2 weeks ago and she is mild short of breath. No near syncope or syncope or diaphoresis. In ED, chest pain relief with nitro sublingual. EKG shows sinus bradycardia at 59 bpm. She had a nuclear stress test in February 2014 and was negative. 2D echo in February 2014 shows EF 65% with mild concentric LVH. Normal left ventricle systolic function. Normal right and left atria. Normal right ventricle. [] Past Medical History Past Medical History (Chronic Problems): Chronic Problems (Last Reviewed 08/14/18 @ 14:20 by Latrice Holland) Carotid bypass surgery (Chronic) Brain aneurysm coil surgery (Chronic) right iliac stent (Chronic) Chronic pain syndrome (Chronic) Chest pain (Chronic) Angina pectoris (Chronic) CAD (coronary artery disease) (Chronic) PVD (peripheral vascular disease) (Chronic) HLD (hyperlipidemia) (Chronic) Medical History: Medical History (Last Reviewed 08/14/18 @ 14:20 by Latrice Holland) Chronic pain syndrome (Chronic) Chest pain (Chronic) R07.9 Angina pectoris (Chronic) I20.9 CAD (coronary artery disease) (Chronic) I25.10 PVD (peripheral vascular disease) (Chronic) I73.9 HLD (hyperlipidemia) (Chronic) E78.5 Fatty liver K76.0 GERD (gastroesophageal reflux disease) K21.9 Goiter E04.9 History of transient ischemic attack (TIA) Z86.73 Hypertension I10 Multiple sclerosis G35 Osteoarthritis M19.90 Osteoporosis M81.0 Psoriasis L40.9 Psoriatic arthritis L40.50 Thrombocytopenia D69.6 History of hysterectomy Z90.710 Allergies colestipol [From Colestid] Allergy (Mild, Verified 09/25/18 05:35) unknown pregabalin [From Lyrica] Allergy (Mild, Verified 09/25/18 05:35) Hives temazepam [From Restoril] Adverse Reaction (Mild, Verified 09/25/18 05:35) Nausea/Vom/Diarrhea Antihistamines - Alkylamine Adverse Reaction (Verified 09/25/18 05:35) Nausea/Vom/Diarrhea Antihistamines - Ethanolamine Adverse Reaction (Verified 09/25/18 05:35) Nausea/Vom/Diarrhea Antihistamines - Ethylenediamine Adverse Reaction (Verified 09/25/18 05:35) Nausea/Vom/Diarrhea Antihistamines - Piperazine Adverse Reaction (Verified 09/25/18 05:35) Nausea/Vom/Diarrhea Antihistamines - Piperidine Adverse Reaction (Verified 09/25/18 05:35) Nausea/Vom/Diarrhea aspirin Adverse Reaction (Verified 09/25/18 05:35) I'M ON BLOOD THINNERS codeine Adverse Reaction (Verified 09/25/18 05:35) Nausea morphine Adverse Reaction (Verified 09/25/18 05:35) Nausea Wylterc-Mle-Liw Reductase Inhibitor Adverse Reaction (Verified 09/25/18 05:35) Nausea STEROIDS BY MOUTH Adverse Reaction (Uncoded 09/25/18 05:35) Upset Stomach Home Medications: Ambulatory Orders Medication Instructions Recorded Surgical History: Surgical History (Last Reviewed 08/14/18 @ 14:20 by Latrice Holland) History of partial thyroidectomy (Resolved) Onset Date: 11/30/05 Z98.890 left thyroid lobectomy with isthmusectomy Brain aneurysm I67.1 s/p coiling January 2014 History of bilateral carotid endarterectomy Onset Date: 2012 Z98.890 History of section Z98.891 X2 History of hemorrhoidectomy Z98.890 Fracture of right lower leg S82.91XA due to fall H/O hemorrhoidectomy Z98.890 H/O: Z98.891 x2 History of left breast biopsy Z98.890 S/P hysterectomy Z90.710 S/P insertion of iliac artery stent Z95.828 right common 08/25/2015 S/P thyroidectomy E89.0 left with isthmusectomy Surgical History: - - Carotid endarterectomy, partial thyroidectomy, , hysterectomy, cholecystectomy Smoking Status: Current every day smoker - *Family History Maternal Family History: Family History (Last Reviewed 08/14/18 @ 14:20 by Latrice Holland) Mother Cancer CAD (coronary artery disease) Brain tumor Grandfather CVA (cerebral vascular accident) Father CAD (coronary artery disease) Ruptured abdominal aortic aneurysm (AAA) Sister Brain aneurysm History Items: No pertinent history Paternal Family History: Family History (Last Reviewed 08/14/18 @ 14:20 by Latrice Holland) Mother Cancer CAD (coronary artery disease) Brain tumor Grandfather CVA (cerebral vascular accident) Father CAD (coronary artery disease) Ruptured abdominal aortic aneurysm (AAA) Sister Brain aneurysm History Items: Heart Disease Review of Systems Constitutional: Denies: Chills, Fever, Weight Change HEENT: Denies: Head Aches, Sinus Congestion, Sinus Drainage Cardiovascular: Reports: Chest Pain. Denies: Palpitations Respiratory: Reports: Shortness of Breath. Denies: Cough, Shortness of breath at rest, Sputum production Gastrointestinal: Denies: Abdominal Pain, Nausea, Vomiting Genitourinary: Denies: Dysuria Musculoskeletal: Reports: Back Pain, Joint Pain. Denies: Joint Tenderness Skin: Denies: Rash, Wounds Neurological: Reports: Balance problems. Denies: Focal weakness, Numbness, Tingling Psychiatric: Denies: Anxiety, Depression, Homicidal Ideations, Suicidal Ideations Hematologic/ Lymphatic: Denies: Easy Bruising, Easy Bleeding VTE Information - Inpt Only VTE Present on Admission: No VTE Mechan Device Prophylaxis: None VTE Pharm Prophylaxis ordered?: Yes Patient Problems: Active and Suspected Problems (Last Reviewed 08/14/18 @ 14:20 by Latrice Holland) Atypical chest pain (Acute) - Physical Exam General: Alert, Oriented x3, Cooperative HEENT: Atraumatic, PERRLA, EOMI, Normocephalic Neck: Supple, No JVD, Negative Carotid Bruits, - - Carotid surgery scar present on both side of neck. Lungs: Clear to auscultation, Normal air movement, No rhonchi, No wheeze, No rales Cardiovascular: Regular Rhythm, Normal S1, Normal S2, No murmurs, Bradycardic Abdomen: Bowel Sounds Present, Soft, Non Tender, Non-Distended Extremities: No edema, Capillary Refill Less than 3 Seconds Skin: No rashes, No breakdown Musculoskeletal: No Tenderness to Palpation of Joints or Extremities Neurological: Cranial nerves II-XII grossly intact Psych/Mental Status: Normal Affect, Appropriate Vital Signs Temp Pulse Resp BP Pulse Ox 97.5 F L 56 L 16 161/106 H 98 09/25/18 05:27 09/25/18 06:24 09/25/18 06:24 09/25/18 06:24 09/25/18 06:24 Oxygen Flow Rate (L/min) 2 Oxygen Delivery Method Nasal Cannula Weight: 145 lb 8.081 oz Body Mass Index (BMI) 23.5 Laboratory Tests Past 24 Hrs WBC 6.4 RBC 4.74 Hgb 13.9 Hct 40.7 MCV 85.9 MCH 29.3 MCHC 34.2 RDW 14.1 RDW Differential 43.9 Assessment/Plan All Active Problems (Last Reviewed 08/14/18 @ 14:20 by Latrice Holland) Atypical chest pain (Acute) History of partial thyroidectomy (Resolved 11/30/05) The patient is a 63 year old F with history of coronary artery disease, right carotid occlusion status post carotid bypass surgery, CVA with cerebral aneurysm coiled respiratory and right iliac a stent by Dr. Nava, MS came to ER with sudden onset of chest pain that woke her up at 3:30 AM. The chest pain persisted and radiated to her neck. She further said she had cold about 2 weeks ago and she is mild short of breath. No near syncope or syncope or diaphoresis. In ED, chest pain relief with nitro sublingual. EKG shows sinus bradycardia at 59 bpm. She had a nuclear stress test in February 2014 and was negative. 2D echo in February 2014 shows EF 65% with mild concentric LVH. Normal left ventricle systolic function. Normal right and left atria. Normal right ventricle. 1. Atypical chest pain concerning for unstable angina: Patient has significant history of peripheral arterial disease involving carotids, iliac artery and CVA. Patient is being admitted in PCU. Serial troponin enzymes. EKG ordered. Continue Plavix. Nitro sublingual as needed for chest pain. Nuclear stress test tomorrow morning. 2. Coronary artery disease, peripheral artery disease, CVA, carotid artery disease and right iliac stent: Patient follows Dr. Nava supposed to have angiogram of lower extremities next month. Recent carotid ultrasound in November 2017 shows moderate 50-69% stenosis in the right extracranial ICA and mild less than 50% and left ICA. Arterial duplex study of lower extremities of July 2014 shows mild arterial occlusive disease at the right lower extremity with JAY 0.94. LLE mild atherosclerotic disease with JAY 0.84. 3. Hypothyroidism with history of left thyroid lobectomy with isthmusectomy: TSH and free T4 ordered. Continue Synthroid. 4. Chronic back pain, MS, uses cane, dyslipidemia: Home medication reconciliation done. DVT prophylaxis: On Lovenox 40 mg subcu daily. Code Visit OBSV E AND M: [id number] Initial observation care L3 09/25/18 0643 <Electronically signed by Hi Garcia MD> Date Hi Garcia MD Cosigner Signature: Date (if applicable) CC: Daron Benton MD; Hi Garcia MD Signed CHEST 1 VIEW Observed: 09/25/2018 Status: F Source: TOPPING (PORTABLE) 5:32 AM [facility] REPOSITORY [facility] Imaging Services [address] [place] [address] Chest 1 View (Portable) MR#: [id number] Acct: [id number] Name: ANGÉLICA WALLER Rep #: [id number] : 1955 F 63 From: Maryuri Weaver MD PCP: Daron Benton MD Status: REG ER Study: Chest 1 View (Portable) Date of Exam: 09/25/18 Exam# [id number] Ordering Dr: Iona Thompson MD STUDY: X-RAY CHEST REASON FOR EXAM: Female, 63 years old. Chest pain TECHNIQUE: Single AP portable view of the chest. COMPARISON: 01/24/2015 FINDINGS: There are superimposed monitor leads. Mild interstitial prominence in the lung bases with hyperinflation of upper and mid lung duarte seen to a similar degree on previous examination. Vague density in the left base. The costophrenic angle possibly faintly seen on previous examination. This may be due to scarring or atelectasis. Small nodule is not excluded. There is no demonstrated pleural abnormality. Normal size heart. Normal mediastinum and david. Normal visualized pulmonary arteries. Normal visualized aortic arch and descending thoracic aorta. There are diffuse degenerative changes of the visualized thoracic spine. Normal visualized ribs, clavicles, and shoulders. There is no demonstrated abnormality of the visualized soft tissue structures of the upper abdomen. RAD/Chest 1 View (Portable) IMPRESSION: Density in the left basal is more pronounced on current examination. Comparison with previous CT abdomen pelvis as most recent lung base assessment is recommended. These were requested and once made available, an addendum report will be generated. Suspect component of COPD. No pulmonary edema, congestive heart failure or confluent pneumonia. Electronically Signed: Maryuri Weaver MD at 6:02 EST , Service support , CC: Daron Benton MD; Iona Thompson MD State Assessed Properties Director: Signed CBC W/DIFF, AUTOMATED Collected: 09/25/2018 Status: F Source: ZACK 5:30 AM [facility] REPOSITORY TYPE CODE TESTS RESULT OUT OF RANGE REFERENCE UNITS LAB L100.1000 4.4-11.0 K/mm3 Normal WBC 6.4 LAB L100.1200 4.2-5.4 M/mm3 Normal RBC 4.74 LAB L100.1300 12.0-15.0 g/dl Normal HGB 13.9 LAB L100.1400 37-47 % Normal HCT 40.7 LAB L100.1500 81-99 fL Normal MCV 85.9 LAB L100.1600 27.0-32.0 pg Normal MCH 29.3 LAB L100.1700 32-36 g/gl Normal MCHC 34.2 LAB L100.1810 11.6-14.6 % Normal RDW CV 14.1 LAB L100.1820 35.1-43.9 fl Normal RDW SD 43.9 LAB L100.1900 150-450 K/mm3 Normal PLT 231 LAB L100.2000 6.2-12.0 fl Normal MPV 9.2 LAB L100.2100 47-70 % Normal NEUT% 65.2 LAB L100.2200 19-41 % Normal LY% 21.2 LAB L100.2300 0-10 % High MONO% 11.4 LAB L100.2400 0-5 % Normal EO% 1.4 LAB L100.2500 0-1 % Normal BASO% 0.5 LAB L100.2550 0.0-0.9 % Normal IM GRAN % 0.300 Result Comment: IG% - Immature Granulocytes (promyelocytes, myelocytes and metamyelocytes) > 1% indicates that a LEFT SHIFT is Present. LAB L100.2620 2.0-7.7 X10 3/uL Normal Absolute Neut 4.2 LAB L100.2720 0.83-4.51 X10 3/ul Normal Absolute Lymph 1.36 Performed By: #### L100.0100 #### [facility] [address] [place], [address] BASIC METABOLIC Collected: 09/25/2018 Status: F Source: TOPPING PROFILE ([facility]) 5:30 AM [facility] REPOSITORY TYPE CODE TESTS RESULT OUT OF RANGE REFERENCE UNITS LAB L501.0100 74-106 mg/dL Normal GLU 102 Result Comment: Fasting Glucose result from 100 to 125 mg/dL suggests IMPAIRED HOMEOSTASIS per A.D.A. criteria. Please note revised GLUCOSE reference range effective 2017. LAB L501.1000 7-18 mg/dL Normal BUN 12 LAB L501.1100 0.55-1.02 mg/dL Normal CREAT,SERUM 0.65 Result Comment: The validity of the calculated GFR AND GFRAA in patients over 70 years has not been determined. Clinical correlation is essential. LAB L501.1110 >60 mL/min Normal EST GFR 98 Result Comment: Non- GFR Calc LAB L501.1115 >60 mL/min Normal EST GFR - AA 119 Result Comment: GFR Calc LAB L501.1255 ml/min Normal Estimated CRCL 81.85 LAB L501.1300 10-20 RATIO Normal BUN/CRE 18.6 LAB L501.2200 8.5-10 mg/dL Normal .1 CA 8.5 LAB L501.5300 136-14 mmol/L Normal 5 NA 144 LAB L501.5600 3.5-5. mmol/L Normal 1 K 3.6 LAB L501.5900 98-107 mmol/L High CL 109 LAB L501.6100 21.0-3 mmol/L Normal 2.0 CO2 23.0 LAB L501.6200 5-15 Normal GAP 12 Performed By: #### L500.2500, L501.4010 #### [facility] [address] [place], [place], [id number] TROPONIN-I Collected: 09/25/2018 Status: F Source: TOPPING 5:30 AM [facility] REPOSITORY TYPE CODE TESTS RESULT OUT OF RANGE REFERENCE UNITS LAB L501.4010 <0.045 ng/mL Normal < 0.015 TROPONIN-I Result Comment: TROPONIN-I EXPECTED VALUES <0.045 Negative 0.045 - 0.590 Consistent with Cardiac Damage > OR = 0.600 Critical Value Not every elevated troponin is indicative of IL. These values should be used with clinical judgement in examining the patient's clinical picture for diagnosis. To establish a diagnosis of IL versus myocardial injury, there must be a demonstrated rise and/or fall in the troponin values, in addition to ischemic symptoms, EKG changes, new regional wall motion abnormality, and/or angiographical evidence. PLEASE NOTE: REFERENCE RANGES EDITED 18 Performed By: #### L500.2500, L501.4010 #### [facility] [address] [place], [place], [id number] THYROID STIM HORMONE Collected: 09/25/2018 Status: F Source: TOPPING (TSH) 5:30 AM [facility] REPOSITORY TYPE CODE TESTS RESULT OUT OF RANGE REFERENCE UNITS LAB L501.9520 0.358-3.74 uIU/mL Normal TSH 1.85 Performed By: #### L501.9520, L506.0400 #### [facility] [address] [place], [address] T4 FREE DIRECT Collected: 09/25/2018 Status: F Source: TOPPING 5:30 AM [facility] REPOSITORY TYPE CODE TESTS RESULT OUT OF REFERENCE UNITS RANGE LAB L506.0400 0.76-1.46 ng/dL High T4 FREE 1.47 DIRECT Performed By: #### L501.9520, L506.0400 #### [facility] [address] [place], [address] PROTHROMBIN TIME W/INR Collected: 09/25/2018 Status: F Source: TOPPING 5:30 AM [facility] REPOSITORY TYPE CODE TESTS RESULT OUT OF RANGE REFERENCE UNITS LAB L300.4150 11.7-14.9 SECONDS Normal PROTIME 12.7 LAB L300.4200 Normal INR 1.0 Performed By: #### L300.3900, L300.4310 #### [facility] [address] [place], [address] PARTIAL THROMBOPLAST Collected: 09/25/2018 Status: F Source: TOPPING TIME 5:30 AM [facility] REPOSITORY TYPE CODE TESTS RESULT OUT OF RANGE REFERENCE UNITS LAB L300.4310 24.1-36.2 Seconds Normal PTT 28.9 Performed By: #### L300.3900, L300.4310 #### [facility] [address] [facility] [place], [address] EMERGENCY DEPARTMENT Observed: 09/10/2018 Status: F Source: ZACK SUMMARY 4:51 PM [facility] REPOSITORY [facility] Medical Records Department [address] [place] [address] Emergency Department Summary 09/10/18 1029 MR#: [id number] Acct: [id number] Name: ANGÉLICA WALLER Rep #: [id number] : 1955 63 From: Bhavik Vargas MD PCP: Chetan FOX,Daron Status: DEP ER - ER Visit Summary Date of Service: 09/10/18 Chief Complaint: Headache History of Present Illness: The patient is a 63 F presenting for evaluation secondary to headache. Patient reports that she has a underlying history of migraine headaches. She has not had one for quite some time, but reports that she had a gradual onset of 1 at about 2 AM today. She reports that it is a frontal throbbing stabbing type headache associated with photophobia nausea and vomiting. Patient reports that she has oxycodone at home which she took one and it did not seem to alleviate her symptoms. She denies any recent head injuries fevers neck stiffness rashes numbness weakness or visual changes associated with this. Review of systems otherwise negative. Physical Examination: Vital signs: Within normal limits General: Well-nourished well-developed no acute distress Head: Normocephalic atraumatic, no temporal artery tenderness or vesicular rash noted. No sinus tenderness to percussion. Eyes: PERRLA, EOMI. Direct funduscopy difficult due to photophobia. Neck: Supple, no lymphadenopathy, no JVD no meningismus. Negative Brudzinski, Kernig, jolt, and heel strike Cardiovascular: Heart regular rate and rhythm no murmurs Respiratory: Lung sounds clear to auscultation bilaterally no respiratory distress Abdomen: Soft, nontender Extremities: Nontender, no edema Skin: Normal color, no rash, no evidence of petechia Neuro: Alert and oriented 4, cranial nerves II through XII intact, normal strength, sensation Test Results: None indicated Emergency Department Course and Treatment: Patient presented secondary to headache. Signs and symptoms and physical exam are not concerning for meningitis intracranial process or any other significant etiology that would require workup. Seems consistent with a migraine. Patient was treated with Benadryl Compazine Toradol and a liter of saline. Repeat evaluation at 11 AM showed patient to have significant improvement. Patient was discharged with outpatient follow-up with primary care as needed. Disposition: Discharge Impression: 1. Migraine headache, not intractable, without status migrainosus This note was generated with [employer] dictation software. It may contain incorrect words, spelling, and punctuation that were not noted in review of the chart prior to signing ED Disposition - Plan for ED Patient: Disposition: Home or Assisted Living Chief Complaint: Headache Diagnosis: Migraine headache Instructions: ED Headache Migraine Referrals: Daron Benton MD [Primary Care Provider] - As Needed What to do if you have Problems For any increased pain, shortness of breath, bleeding, nausea or vomiting, chest pain, or any unexpected problems, contact your Primary Care Provider. Call [facility] ([phone]) or report to the closest Emergency Room. Call 911 if necessary. 09/10/18 1651 <Electronically signed by Bhavik Vargas MD> Date Bhavik Vargas MD Cosigner Signature (If Indicated): Date CC: Daron Benton MD CTA NECK W/WO Observed: 09/05/2018 Status: F Source: ZACK CONTRAST 8:24 AM [facility] REPOSITORY [facility] Imaging Services [address] [place] [address] CTA Neck W/WO Contrast MR#: [id number] Acct: [id number] Name: ANGÉLICA WALLER Rep #: [id number] : 1955 F 63 From: Srinivas Bowen PCP: Daron Benton MD Status: REG CLI Study: CTA Neck W/WO Contrast Date of Exam: 09/05/18 Exam# [id number] Ordering Dr: Kam Nava MD STUDY: CTA NECK WITH CONTRAST REASON FOR EXAM: Female, 63 years old. CAROTID STENOSIS F/U SURG 6 YRS AGO, HAD PREV RT TOTAL CAROTID STENOSIS. RADIATION DOSAGE (If Supplied By Facility): CTDIvol = ( 20.51 ) mGy, DLP = ( 487.58 ) mGycm TECHNIQUE: CT angiography with multi-detector data acquisition was performed from the aortic arch to the skull base following intravenous administration of 100 ml of Isovue 370 contrast. MIP images were reconstructed from the axial data set. Post-processing of the angiographic images was performed, with multiplanar reformation and 3D reconstruction. Individualized dose optimization techniques were used for this CT. COMPARISON: August 21, 2017 FINDINGS: AORTIC ARCH: Normal visualized aortic arch. 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 RIGHT CAROTID ARTERIES: Normal right common carotid artery (CCA). There is mild atherosclerotic plaque formation with minimal narrowing of the right carotid bulb. Normal origin of the right internal carotid (ICA) artery without a hemodynamically significant stenosis. Normal visualized cervical portion of the right internal carotid artery. Normal origin of the right external carotid artery (ECA). LEFT CAROTID ARTERIES: Normal left common carotid artery (CCA). There is mild atherosclerotic plaque formation with minimal narrowing of the left carotid bulb. Normal origin of the left internal carotid (ICA) artery without a hemodynamically significant stenosis. Normal visualized cervical portion of the left internal carotid artery. Normal origin of the left external carotid artery (ECA). VERTEBRAL ARTERIES: Normal bilateral vertebral arteries. There is a patent right common carotid to left common carotid bypass graft CT/CTA Neck W/WO Contrast IMPRESSION: Stable examination. Occluded right brachiocephalic artery. Patent common carotid arteries bypass graft. Electronically Signed: Srinivas Bowen MD at 8:39 EDT Tel , Service support , CC: Kam Nava MD; Daron Benton MD State Assessed Properties Director: Signed BUN Collected: 09/02/2018 Status: F Source: ZACK 11:33 AM [facility] REPOSITORY TYPE CODE TESTS RESULT OUT OF RANGE REFERENCE UNITS LAB L501.1000 7-18 mg/dL Normal BUN 14 Performed By: #### L501.1000, L501.1105 #### [facility] [address] [place], [place], [id number] SERUM CREATININE AND Collected: 09/02/2018 Status: F Source: ZACK GFR 11:33 AM [facility] REPOSITORY TYPE CODE TESTS RESULT OUT OF RANGE REFERENCE UNITS LAB L501.1100 0.55-1.02 mg/dL Normal 0.84 CREAT,SERUM Result Comment: The validity of the calculated GFR AND GFRAA in patients over 70 years has not been determined. Clinical correlation is essential. LAB L501.1110 >60 mL/min Normal EST GFR 72 Result Comment: Non- GFR Calc LAB L501.1115 >60 mL/min Normal EST GFR - AA 87 Result Comment: GFR Calc Performed By: #### L501.1000, L501.1105 #### [facility] [address] [place], [address] SURGERY VISIT REPORT Observed: 08/15/2018 Status: F Source: TOPPING 3:43 PM [facility] REPOSITORY [facility] [address] [place] [address] OFFICE VISIT Date of Service: 08/14/18 MR#: [id number] Acct: [id number] Name: ANGÉLICA WALLER Rep #: [id number] : 1955 Provider: Trista Contreras PA-C Age/Sex: 63/F Location: [facility] Status: Signed Intake Intake Visit Reasons: ER F/U 08/12 Infeccted Sebaceous Cyst L Buttock Chief Complaint: solumedrol Psychiatric Nursing Aide Required: No Is patient in pain?: No Allergies colestipol [From Colestid] Allergy (Mild, Verified 08/14/18 14:15) unknown pregabalin [From Lyrica] Allergy (Mild, Verified 08/14/18 14:15) Hives temazepam [From Restoril] Adverse Reaction (Mild, Verified 08/14/18 14:15) Nausea/Vom/Diarrhea Antihistamines - Alkylamine Adverse Reaction (Verified 08/14/18 14:15) Nausea/Vom/Diarrhea Antihistamines - Ethanolamine Adverse Reaction (Verified 08/14/18 14:15) Nausea/Vom/Diarrhea Antihistamines - Ethylenediamine Adverse Reaction (Verified 08/14/18 14:15) Nausea/Vom/Diarrhea Antihistamines - Piperazine Adverse Reaction (Verified 08/14/18 14:15) Nausea/Vom/Diarrhea Antihistamines - Piperidine Adverse Reaction (Verified 08/14/18 14:15) Nausea/Vom/Diarrhea aspirin Adverse Reaction (Verified 08/14/18 14:15) I'M ON BLOOD THINNERS codeine Adverse Reaction (Verified 08/14/18 14:15) Nausea morphine Adverse Reaction (Verified 08/14/18 14:15) Nausea Ycxvokw-Pru-Qzz Reductase Inhibitor Adverse Reaction (Verified 08/14/18 14:15) Nausea STEROIDS BY MOUTH Adverse Reaction (Uncoded 08/14/18 14:15) Upset Stomach Medications Cholecalciferol (Vitamin D3) [Vitamin D3] 5,000 unit PO DAILY 12/16/13 [History Confirmed 08/14/18] Oxycodone [Oxyir] 5 mg PO BID 02/01/18 [History Confirmed 08/14/18] clopidogrel 75 mg tablet 75 mg PO QODAY #90 tab 05/31/18 [Rx Confirmed 08/14/18] baclofen 10 mg tablet 10 mg PO Q6H tab 07/16/18 [History Confirmed 08/14/18] gabapentin 800 mg tablet 800 mg PO TID tab 07/16/18 [History Confirmed 08/14/18] levothyroxine 75 mcg tablet 50 mcg PO DAILY tab 07/17/18 [History Confirmed 08/14/18] Magnesium Oxide [Magnesium] 400 mg PO DAILY 08/12/18 [History Confirmed 08/14/18] Oxycodone HCl/Acetaminophen [Percocet 5/325] 1 tab PO Q6H PRN PRN 3 Days #12 tab 08/12/18 [Rx Confirmed 08/14/18] PFSH Medical History Chronic pain syndrome (Chronic) Chest pain (Chronic) Angina pectoris (Chronic) CAD (coronary artery disease) (Chronic) PVD (peripheral vascular disease) (Chronic) HLD (hyperlipidemia) (Chronic) Fatty liver (Chronic) GERD (gastroesophageal reflux disease) (Chronic) Goiter (Chronic) History of transient ischemic attack (TIA) (Chronic) Hypertension (Chronic) Multiple sclerosis (Chronic) Osteoarthritis (Chronic) Osteoporosis (Chronic) Psoriasis (Chronic) Psoriatic arthritis (Chronic) Thrombocytopenia (Chronic) Surgical History History of partial thyroidectomy (Resolved 11/30/05) Brain aneurysm (Chronic) History of bilateral carotid endarterectomy (Resolved 2012) History of section (Resolved) History of hemorrhoidectomy (Resolved) History of hysterectomy (Resolved) Fracture of right lower leg (Inactive) H/O hemorrhoidectomy (Inactive) H/O: (Inactive) History of left breast biopsy (Inactive) S/P hysterectomy (Inactive) S/P insertion of iliac artery stent (Inactive) S/P thyroidectomy (Inactive) Family History Mother Cancer CAD (coronary artery disease) Brain tumor Grandfather CVA (cerebral vascular accident) Father CAD (coronary artery disease) Ruptured abdominal aortic aneurysm (AAA) Sister Brain aneurysm Social History Smoking Status: Current every day smoker alcohol intake: never caffeine: Yes Type: coffee, tea HPI HPI HPI: ANGÉLICA WALLER, is a 63 F who presents with an infected sebaceous cyst on the left buttock. Patient was evaluated in the ED for shoulder pain and then was noted to have a boil on her left buttock. Patient notes she has an outbreak of shingles frequently. She thought possible this was a shingles outbreak. Patient denies discomfort today. She notes very little drainage. Infected cyst was opened in the ED. ROS General General: Yes weight change and fatigue; no appetite, colon cancer or breast cancer HEENT HEENT: Yes eye surgery; no difficulty swallowing, eye injury, swollen glands or hoarseness Endo Endocrine: Yes thyroid disease; no diabetes mellitus, thyroid cancer, Hair loss, heat intolerance or cold intolerance Skin Skin: Yes rash; no changing moles Musc Musculoskeletal: Yes back problems and arthritis; no rheumatoid arthritis, gout or joint pain Cardio Cardiovascular: Yes heart disease and murmur; no pacemaker, atrial fibrillation, high blood pressure, heart attack, heart stent, palpitations, shortness of breat with exertion or chest pain Psych Psychiatric: No depression, anxiety or hearing voices Resp Respiratory: No shortness of breath, No sleep apnea, No cough, No COPD, No asthma, No emphysema, No wheezing Gastro Gastrointestinal: Yes acid reflux, No abdominal pain, No nausea or vomiting, No diarrhea, No constipation, No blood in stool, No hemorrhoids, No ulcers, No gallbladder problem, No black,tarry stools Jared Hematologic: Yes blood thinners, No blood disorders, No bleeding, No anemia, No blood clots Neuro Neurologic: Yes tingling, Yes numbness Exam Const General: cooperative, comfortable, no acute distress, healthy appearing [facility] Head: normal to inspection Eyes General: appearance normal, both eyes and all related structures Neck Neck mass: No Resp Effort AND Inspection: normal respiratory effort Auscultation: clear to auscultation bilaterally Cardio Rate: regular rate Rhythm: regular rhythm Heart Sounds: murmur GI Inspection: normal to inspection Palpation: soft Auscultation: normal bowel sounds Other: Left buttock- 1 cm incision nicely healed. Skin General: no rashes or lesions noted Neuro General: no focal motor deficits Extrem General: normal to inspection Psych Appearance: grossly normal Affect: normal affect Assessment AND Plan Problems 1. Infected sebaceous cyst L72.3; L08.9 Plan - Follow-up as needed Coding Level of Care Code Off vis,est,level 3 Diagnoses Infected sebaceous cyst L72.3; L08.9 08/15/18 1543 <Electronically signed by Trista Contreras PA-C> Date Trista Contreras PA-C Cosigner Signature: Date (if applicable) CC: LOWER EXT ARTERIAL Observed: 08/14/2018 Status: F Source: [facility] 8:31 AM [facility] REPOSITORY [facility] Cardiovascular Services [address] [place] [address] 08/14/18 0829 MR#: [id number] Acct: [id number] Name: ANGÉLICA WALLER Rep #: [id number] : 1955 63 From: Kam Nava MD Attending Dr: Kam Nava MD Status: REG CLI Ordering Dr: Date: 08/14/18 Location: [facility] Sex: F C Admitted: Arterial Study - Arterial Study Arterial Study: Date of scan 08/07/[address] Nava Interpretation: Right lower extremity pulsatile flow noted at the ankle out to the digits the duplex shows biphasic flow both vessels. JAY 0.78 at the PT 0.9 for the DP digit brachial index 0.74. Left lower extremity pulsatile flow noted out from the ankle up to the digits. Duplex is biphasic flow of both vessels at the ankle. JAY 0.77 in the PT 0.8 for the DP. Digit brachial index 0.88 next Interpretation: 1. Right lower extremity mild arterial occlusive disease at rest with biphasic flow and an JAY 0.94. 2. Left lower extremity mild arterial occlusive disease at rest with an JAY 0.84 08/14/1831 <Electronically signed by Kam Nava MD> Date Kam Nava MD CC: Kam Nava MD; Daron Benton MD Date Dictated: 08/14/18828 Date Transcribed: 08/14/18828 State Assessed Properties Director: HECTOR Signed EMERGENCY DEPARTMENT Observed: 08/12/2018 Status: F Source: TOPPING SUMMARY 5:26 PM [facility] REPOSITORY [facility] Medical Records Department [address] [place] [address] Emergency Department Summary 08/12/18 1412 MR#: [id number] Acct: [id number] Name: ANGÉLICA WALLER Rep #: [id number] : 1955 63 From: Deon Ramirez MD PCP: Daron Benton MD Status: DEP ER - ER Visit Summary Date of Service: 08/12/18 Chief Complaint: Left arm pain History of Present Illness: The patient is a [address] Daron Benton. She reports that yesterday she lifted up her dog and had the abrupt onset of a sharp pain in her entire left arm. This is from her shoulder all the way down to her fingertips. She reports that she has paresthesias in an ulnar distribution. Patient reports that it is a sharp pain is 10 out of 10 with movement 8 out of 10 at rest. She did not fall and she denies any other injuries. On review of systems patient complains of a boil on her left buttock. She denies any constitutional symptoms. No fever, chills, nausea, or vomiting. Physical Examination: Vitals: Stable. Afebrile. General: Well-nourished and well-developed. Head: Normocephalic atraumatic. Neck: Supple, no lymphadenopathy. No JVD. Nontender. Cardiovascular: Regular rate and rhythm. No murmurs. Respiratory: No respiratory distress. Clear to auscultation bilaterally. Abdominal: Soft, nontender, nondistended, normal bowel sounds. No guarding, rebound, or peritoneal signs. Back: Nontender. Extremities: Moderate tenderness to palpation from her hand all the way up to her elbow. There is no localized tenderness. She has a palpable radial pulse. There is less than 2 second capillary refill. She has a paresthesias in an ulnar distribution. She has mild diffuse tenderness palpation over her arm. She has no pain with range of motion. Skin: Left buttock inferior medially there is a 3 cm x 2 cm area of erythema with central fluctuance. Neurologic: Alert and oriented 3. Cranial nerves II through XII are intact. Normal strength and sensation. Psych: Normal affect. Emergency Department Course and Treatment: Patient was given a dose of Dilaudid IM. She had an I AND D performed. She tolerated this well. An OARRS report was obtained which shows that she has had 11 prescriptions for opiates in the past year. Currently she is getting 2 oxycodone a day from Dr. Daron Benton. Treatment Plan: Patient will have her oxycodone increased over the next few days. She is given a prescription for 12 oxycodone. She is instructed to follow- up with Dr. Dorman in 2 days for a wound check. Follow-up Dr. Benton in 3-5 days if her arm is not improving. Return to the emergency department for any worsening symptoms. Disposition: To home in improved and stable condition. Impression: 1. Left buttock sebaceous cyst. 2. I AND D. 3. Left arm pain, acute. Procedure Note: Abscess was cleansed with chlorhexidine soap. Anesthetized with 1% lidocaine without epinephrine. An incision was made with an 11 scalpel blade. A moderate amount of pus was drained. Curved hemostats were used to break up loculations. The wound was copiously irrigated with normal saline. It was loosely packed with iodoform gauze. The patient tolerated it well. This note was generated with [employer] dictation software. It may contain incorrect words, spelling, and punctuation that were not noted in review of the chart prior to signing ED Disposition - Plan for ED Patient: Disposition: Home or Assisted Living Chief Complaint: Numb/Ting Instructions: ED Cyst Sebaceous Infec IandD, ED Strain Muscle Ext Prescriptions: Oxycodone HCl/Acetaminophen [Percocet 5/325] 1 tablet PO Q6H PRN PRN 3 Days #12 tablet PRN Reason: Pain Referrals: Daron Benton MD [Primary Care Provider] - 3-5 Days if not improving Kirk Dorman MD [STAFF PHYSICIAN] - 2 Days for wound check What to do if you have Problems For any increased pain, shortness of breath, bleeding, nausea or vomiting, chest pain, or any unexpected problems, contact your Primary Care Provider. Call [facility] ([phone]) or report to the closest Emergency Room. Call 911 if necessary. 08/12/18 1726 <Electronically signed by Deon Ramirez MD> Date Deon Ramirez MD Cosigner Signature (If Indicated): Date CC: Daron Benton MD ABD AORTIC/IVC DUPLEX Observed: 08/07/2018 Status: F Source: TOPPING SCAN 11:54 AM [facility] REPOSITORY [facility] Cardiovascular Services [address] [place] [address] Abd Aortic/IVC Duplex scan 08/07/18 0957 MR#: [id number] Acct: [id number] Name: ANGÉLICA WALLER Rep #: [id number] : 1955 63 From: Kam Nava MD Attending Dr: Kam Nava MD Status: REG CLI Ordering Dr: Kam Nava MD Date: 08/07/18 Location: [facility] Sex: F C Admitted: Reason For Study: Aortic atherosclerosis Aorta Measurements Aorta Doppler Measurements Proximal aorta measures1.9 x 1.8cm. in cross- Peak systolic flow velocities within the proximal sectional axis. aorta measure 62.9 cm/sec. Proximal aorta measures1.89cm. in longitudinal Peak systolic flow velocities within the mid axis. aorta measure 94.9 cm/sec. Mid aorta measures1.16 x 1.17cm. in cross- Peak systolic flow velocities within the distal sectional axis. aorta measure 80.3 cm/sec. Mid aorta measures1.15cm. in longitudinal axis. Distal aorta measures.936 x 1.04cm. in cross- sectional axis. Distal aorta measures1.03cm. in longitudinal axis. Left Iliac Artery Left iliac artery measures .601 x .598 cm. in the cross-sectional axis. Left iliac artery measures .541 cm. in the longitudinal axis. Peak systolic velocity in the left iliac artery measures 108 cm/sec. Right Iliac Artery Right iliac artery measures .519 x .472 cm. in the cross-sectional axis. Right iliac artery measures .504 cm. in the longitudinal axis. Peak systolic velocity in the right iliac artery measures 313 cm/sec. Procedure The exam was diagnostic. Exam performed in department. Interpretation Summary 1. No aortic aneurysm or stenosis. 2. Right AGATA with psv 313. 3. Left AGATA nl. Ordering Physician: Kam Nava Performed By: Von Rodriguez RVMurtaza 08/07/18 1153 Date Kam Nava MD CC: Kam Nava MD; Daron Benton MD Date Dictated: 08/07/18 0957 Date Transcribed: 08/07/181152 State Assessed Properties Director: Signed CARDIOLOGY VISIT Observed: 07/17/2018 Status: F Source: ZACK REPORT 11:31 AM [facility] REPOSITORY [facility] [address] [place] [address] OFFICE VISIT Date of Service: 07/17/18 MR#: [id number] Acct: [id number] Name: ANGÉLICA WALLER Rep #: [id number] : 1955 Provider: Betsey Lindquist Age/Sex: 63/F Location: [facility] Status: Signed HPI HPI Details: ANGÉLICA WALLER, is a 63 F who presents to the office today for a cardiovascular followup. She has a history of mild coronary artery disease. She recently underwent a bilateral carotid endarterectomy at [facility]. 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 In August she had stenting to her right common iliac with Dr. Onofre/ Dr. Nava. She does have a history of MS. Pt has noted that she has had more edema in her legs if she is sitting, if she wears compression stockings. She also states that she has been have leg cramps were her legs lock up and she is unable to walk. She did see a back surgeon they felt that this was related to her back and MS. She does occasionally have chest pain that is tender to touch. She does not have any worsening SOB. She does not have any near syncope/syncope. She does ambulate with a wheeled walker. She just received some IV infusions MS. Intake Vital Signs07/17/18 Height 5 ft 6 in 07/17/18 Weight: 139 lb 07/17/18 Body Mass Index (BMI) 22.4 07/17/18 Blood Pressure 122/68 07/17/18 Blood Pressure Location Rt brachial Intake Visit Reasons: 1 Y FU Psychiatric Nursing Aide Required: No Accompanied by: none Is patient in pain?: No Allergies colestipol [From Colestid] Allergy (Mild, Verified 07/16/18 16:09) unknown pregabalin [From Lyrica] Allergy (Mild, Verified 07/16/18 16:09) Hives temazepam [From Restoril] Adverse Reaction (Mild, Verified 07/16/18 16:09) Nausea/Vom/Diarrhea Antihistamines - Alkylamine Adverse Reaction (Verified 07/16/18 16:09) Nausea/Vom/Diarrhea Antihistamines - Ethanolamine Adverse Reaction (Verified 07/16/18 16:09) Nausea/Vom/Diarrhea Antihistamines - Ethylenediamine Adverse Reaction (Verified 07/16/18 16:09) Nausea/Vom/Diarrhea Antihistamines - Piperazine Adverse Reaction (Verified 07/16/18 16:09) Nausea/Vom/Diarrhea Antihistamines - Piperidine Adverse Reaction (Verified 07/16/18 16:09) Nausea/Vom/Diarrhea aspirin Adverse Reaction (Verified 07/16/18 16:09) I'M ON BLOOD THINNERS codeine Adverse Reaction (Verified 07/16/18 16:09) Nausea morphine Adverse Reaction (Verified 07/16/18 16:09) Nausea Yhbvwdd-Pla-Hsa Reductase Inhibitor Adverse Reaction (Verified 07/16/18 16:09) Nausea STEROIDS BY MOUTH Adverse Reaction (Uncoded 02/01/18 17:26) Upset Stomach Medications Cholecalciferol (Vitamin D3) [Vitamin D3] 5,000 unit PO DAILY 12/16/13 [History Confirmed 07/17/18] Oxycodone [Oxyir] 5 mg PO BID 02/01/18 [History Confirmed 07/17/18] clopidogrel 75 mg tablet 75 mg PO QODAY #90 tab 05/31/18 [Rx Confirmed 07/17/18] baclofen 10 mg tablet 10 mg PO Q6H tab 07/16/18 [History Confirmed 07/17/18] gabapentin 800 mg tablet 800 mg PO TID tab 07/16/18 [History Confirmed 07/17/18] levothyroxine 75 mcg tablet 50 mcg PO DAILY tab 07/17/18 [History Confirmed 07/17/18] PFSH Medical History Chronic pain syndrome (Chronic) Chest pain (Chronic) Angina pectoris (Chronic) CAD (coronary artery disease) (Chronic) PVD (peripheral vascular disease) (Chronic) HLD (hyperlipidemia) (Chronic) Fatty liver (Chronic) GERD (gastroesophageal reflux disease) (Chronic) Goiter (Chronic) History of transient ischemic attack (TIA) (Chronic) Hypertension (Chronic) Multiple sclerosis (Chronic) Osteoarthritis (Chronic) Osteoporosis (Chronic) Psoriasis (Chronic) Psoriatic arthritis (Chronic) Thrombocytopenia (Chronic) Surgical History History of partial thyroidectomy (Resolved 11/30/05) Brain aneurysm (Chronic) History of bilateral carotid endarterectomy (Resolved 2012) History of section (Resolved) History of hemorrhoidectomy (Resolved) History of hysterectomy (Resolved) Fracture of right lower leg (Inactive) H/O hemorrhoidectomy (Inactive) H/O: (Inactive) History of left breast biopsy (Inactive) S/P hysterectomy (Inactive) S/P insertion of iliac artery stent (Inactive) S/P thyroidectomy (Inactive) Family History Mother Cancer CAD (coronary artery disease) Brain tumor Grandfather CVA (cerebral vascular accident) Father CAD (coronary artery disease) Ruptured abdominal aortic aneurysm (AAA) Sister Brain aneurysm Social History Smoking Status: Current every day smoker alcohol intake: never caffeine: Yes Type: coffee, tea ROS Const Const: Negative for weakness, fatigue, fever(s) or headache(s) Eyes Eyes: Negative for blind spots, loss of peripheral vision or transient loss of vision ENT ENT: Positive for balance problems; negative for headache(s), dizziness, tinnitus or Nosebleed/epistaxis Cardio Chest Pain: No Palpitations: No Edema: Bilateral Muscle aches with walking: Bilateral Resp Respiratory: Negative for SOB with activity, SOB at rest, SOB orthopnea\SOB lying down or Cough GI GI: Negative nausea, vomiting, heartburn or vomiting blood/hematemesis : Negative for hematuria Musc Musc: Positive for muscle aches/ myalgia, balance problems and muscle weakness Neuro Neuro: Positive for other (has MS); negative for weakness, headache(s), dizziness, near syncope, syncope, lightheadedness or orthostatic symptoms Jared Hematologic/Lymphatic: Negative for easy bleeding Endo Endo: Negative for fatigue Cardiology Exam Const Appearance: cooperative, no acute distress and well developed Orientation: alert, awake and oriented x3 Limitations: physical limitations (uses wheeled walker) Head Head: normocephalic and atraumatic Mouth: moist mucous membranes Eyes General: appearance normal, both eyes and all related structures Conjunctivae: conjunctivae normal Pupils: PERRL EOM: EOM intact bilaterally Neck Neck: normal visual inspection, no lymphadenopathy and no JVD Carotids: bruit Bilateral carotid endarterectomy: Bilateral Neck Mass: Negative Neck mass Chest Chest inspection: normal inspection of the chest and symmetric chest movement Auscultation: Bilateral: Clear to Auscultation Cardio Palpation: normal PMI Rate: regular rate Rhythm: regular rhythm Heart sounds: S1 normal, S2 normal and murmur; negative rub or gallop Murmur: soft, Grade 2/6 and mid systolic GI GI: normal to inspection, soft, no hepatosplenomegaly and bowel sounds present; negative tender Neuro General: alert, awake, oriented x3, CN's II-XI intact bilaterally and moves all extremities Extremities Pulses: Normal: Right Radial Pulse, Left Radial Pulse, Diminished: Right Posterior Tibial Pulse, Left Posterior Tibial Pulse Lower Extremity Edema: None: Bilateral Psych Psychological: normal affect Supplemental Info Heart cath in 2014 demonstrated a normal left ventricular ejection fraction of 65%, the left main coronary artery with mid to distal 25% stenosis, left anterior descending artery with 25% proximal stenosis, left circumflex artery with no significant disease, and the right coronary artery with 25% stenosis. An abdominal aortogram was also performed and he did make a notation of an accessory right and left renal artery with a left accessory renal artery demonstrated proximal angiographically significant stenosis. Diffuse atherosclerotic peripheral vascular disease was noted in the left and right iliac systems. Assessment AND Plan 1. Coronary artery disease involving [place] coronary artery of [place] heart without angina pectoris I25.10 Plan Patient does have mild coronary artery disease. She will continue with aggressive risk factor modification. 2. PVD (peripheral vascular disease) I73.9 Plan Patient is complaining of lower extremity edema and claudication issues. Would like to have her follow-up with vascular. Notify Dr. Nava's office the patient is overdue for follow-up. 3. Pure hypercholesterolemia E78.00; E78.0 Plan Unfortunately patient has been intolerant to statins. Did have a discussion with her about dietary modifications and other supplements that she could take to try and decrease her cholesterol. This is also being monitored by her primary care doctor. 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 transplanted heart: [place]o heart Associated angina: without angina PVD (peripheral vascular disease) I73.9 Pure hypercholesterolemia E78.00; E78.0 Hyperlipidemia type: pure hypercholesterolemia Coding Level of Care Code Off vis,est,level 3 Diagnoses Coronary artery disease involving c[place] coronary artery of [place] heart without angina pectoris I25.10 Coronary Disease-Associated Artery/Lesion type: [place] artery [place] vs. transplanted heart: c[place]o heart Associated angina: without angina PVD (peripheral vascular disease) I73.9 Pure hypercholesterolemia E78.00; E78.0 Hyperlipidemia type: pure hypercholesterolemia 07/17/18 1131 <Electronically signed by Betsey PEÑA> Date Betsey PEÑA Cosigner Signature: Date (if applicable) CC: Daron Benton MD V-[facility] VIRUS ACUTE Collected: 06/03/2018 Status: F Source: [place] IGM 2:06 PM [facility] REPOSITORY Order Comment: Comments: HSV1 AND 2 IGM #[id number] SERUM ROOM TEMP TYPE CODE TESTS RESULT OUT OF RANGE REFERENCE UNITS LAB L3300.9950 0.00-0.90 index Normal V ZOS IgM < 0.91 98851 Result Comment: Negative <0.91 Borderline 0.91 - 1.09 Positive >1.09 Performed at: [address] [id number] Steam Shovel Oiler: Mendez Rodriguez MD, Phone: [phone] Performed at: [address] [id number] Steam Shovel Oiler: Damion Richards PhD, Phone: [phone] Performed By: #### L3300.9950, L3400.0000, L3400.1610, L3400.1640 #### [facility] (refer to report for specific site) refer to report for address and phone number V-ZOSTER IGG Collected: 06/03/2018 Status: F Source: [place] (IMMUNITY) 2:06 PM [facility] REPOSITORY Order Comment: Comments: HSV1 AND 2 IGM #[id number] SERUM ROOM TEMP TYPE CODE TESTS RESULT OUT OF RANGE REFERENCE UNITS LAB L3400.0000 Immune >165 index Normal VZOST IgG 1777 80498 Result Comment: Negative <135 Equivocal 135 - 165 Positive >165 A positive result generally indicates exposure to the pathogen or administration of specific immunoglobulins, but it is not indication of active infection or stage of disease. Performed By: #### L3300.9950, L3400.0000, L3400.1610, L3400.1645 #### [facility] (refer to report for specific site) refer to report for address and phone number HSV 1 AND 2 IGG Collected: 06/03/2018 Status: F Source: [place] 2:06 PM [facility] REPOSITORY Order Comment: Comments: HSV1 AND 2 IGM #[id number] SERUM ROOM TEMP TYPE CODE TESTS RESULT OUT OF RANGE REFERENCE UNITS LAB L3400.1620 0.00-0.90 index High HSV 1 IgG 11.70 Result Comment: Negative <0.91 Equivocal 0.91 - 1.09 Positive >1.09 Note: Negative indicates no antibodies detected to HSV-1. Equivocal may suggest early infection. If clinically appropriate, retest at later date. Positive indicates antibodies detected to HSV-1. LAB L3400.1630 0.00-0.90 index High 9.67 HSV 2 IgG Result Comment: Negative <0.91 Equivocal 0.91 - 1.09 Positive >1.09 Note: Negative indicates no antibodies detected to HSV-2. Equivocal may suggest early infection. If clinically appropriate, retest at later date. Positive indicates antibodies detected to HSV-2. Effective June 24, 2018 HSV 2 IgG, Type Spec will be made non-orderable. [facility] offers HSV-2 Type Spec Ab, IgG w/Rflx. This will affect any existing profile. For further information, please contact your local [facility]. Performed By: #### L3300.9950, L3400.0000, L3400.1610, L3400.1645 #### [facility] (refer to report for specific site) refer to report for address and phone number HSV 1/2 BY PCR Collected: 06/03/2018 Status: F Source: [place] 2:06 PM [facility] REPOSITORY Order Comment: Comments: HSV1 AND 2 IGM #[id number] SERUM ROOM TEMP TYPE CODE TESTS RESULT OUT OF RANGE REFERENCE UNITS LAB L3400.1650 Negative Normal HSV 1 Negative BY PCR LAB L3400.1655 Negative Normal HSV 2 Negative BY PCR Result Comment: This test was developed and its performance characteristics determined by [employer]. It has not been cleared or approved by the U.S. Food and Drug Administration. The FDA has determined that such clearance or approval is not necessary. This test is used for clinical purposes. It should not be regarded as investigational or research. Performed By: #### L3300.9950, L3400.0000, L3400.1610, L3400.1645 #### [facility] (refer to report for specific site) refer to report for address and phone number MISCELLANEOUS LAB Collected: 06/03/2018 Status: F Source: TOPPING PROCEDURE 2:06 PM [facility] REPOSITORY Order Comment: Comments: HSV1 AND 2 IGM #[id number] SERUM ROOM TEMP Test(s) Ordered: HSV1 AND 2 IGM #[id number] SERUM ROOM TEMP TYPE CODE TESTS RESULT OUT OF RANGE REFERENCE UNITS LAB L801.1541 Normal [facility] TEST Result Comment: TEST RESULT UNITS REF INTERVAL HSV 1 and 2 IgM Abs, Indirect HSV 1 IgM Antibodies <1:10 titer <1:10 HSV 2 IgM Antibodies <1:10 titer <1:10 HSV 1 and HSV 2 share many cross-reacting antigens. Elevated titers to both HSV 1 and HSV 2 may represent crossreactive HSV antibodies rather than exposure to both HSV 1 and HSV 2. Results for this test are for research purposes only by the assay's tunnel man. The performance characteristics of this product have not been established. Results should not be used as a diagnostic procedure without confirmation of the diagnosis by another medically established diagnostic product or procedure. TESTING PERFORMED AT [facility]. ORIGINAL REPORT ON FILE IN LAB CONTAINS ADDITIONAL TEST SITE INFORMATION. Performed By: #### L801.1541 #### [facility] [address] [place], [address] ORTHOPEDIC VISIT Observed: 02/17/2018 Status: F Source: [place] REPORT 2:53 PM [facility] REPOSITORY [facility] Sports [facility] [facility] [address] [place] [address] OFFICE VISIT Date of Service: 02/12/18 MR#: [id number] Acct: [id number] Name: ANGÉLICA WALLER Rep #: [id number] : 1955 Provider: Shefali Parson MD Age/Sex: 62/F [place] [facility] [place]: Signed Intake Intake Visit Reasons: low back Is patient in pain?: No Allergies colestipol [From Colestid] Allergy (Mild, Verified 02/01/18 17:26) unknown temazepam [From Restoril] Allergy (Mild, Verified 02/01/18 17:26) unknown pregabalin [From Lyrica] Allergy (Verified 02/01/18 17:26) Hives Antihistamines - Alkylamine Adverse Reaction (Verified 02/01/18 17:26) Nausea/Vom/Diarrhea Antihistamines - Ethanolamine Adverse Reaction (Verified 02/01/18 17:26) Nausea/Vom/Diarrhea Antihistamines - Ethylenediamine Adverse Reaction (Verified 02/01/18 17:26) Nausea/Vom/Diarrhea Antihistamines - Piperazine Adverse Reaction (Verified 02/01/18 17:26) Nausea/Vom/Diarrhea Antihistamines - Piperidine Adverse Reaction (Verified 02/01/18 17:26) Nausea/Vom/Diarrhea aspirin Adverse Reaction (Verified 02/01/18 17:26) I'M ON BLOOD THINNERS codeine Adverse Reaction (Verified 02/01/18 17:26) Nausea morphine Adverse Reaction (Verified 02/01/18 17:26) Nausea Vmjqpxu-Bso-Iwg Reductase Inhibitor Adverse Reaction (Verified 02/01/18 17:26) Nausea STEROIDS BY MOUTH Adverse Reaction (Uncoded 02/01/18 17:26) Upset Stomach Medications Baclofen [Lioresal] 20 mg PO Q6H PRN PRN 12/16/13 [History Confirmed 02/01/18] Cholecalciferol (Vitamin D3) [Vitamin D3] 5,000 unit PO DAILY 12/16/13 [History Confirmed 02/01/18] Clopidogrel Bisulfate [Plavix] 75 mg PO QODAY 12/16/13 [History Confirmed 02/01/18] Levothyroxine [Synthroid] 50 mcg PO DAILY 12/16/13 [History Confirmed 02/01/18] Gabapentin [Neurontin] 800 mg PO TID 01/24/15 [History Confirmed 02/01/18] Oxycodone [Oxyir] 5 mg PO BID 02/01/18 [History Confirmed 02/01/18] PFSH Medical History Fatty liver (Acute) Goiter (Acute) Thrombocytopenia (Acute) GERD (gastroesophageal reflux disease) (Chronic) Hypertension (Chronic) Multiple sclerosis (Chronic) Osteoarthritis (Chronic) Osteoporosis (Chronic) Psoriasis (Chronic) Psoriatic arthritis (Chronic) Surgical History Fracture of right lower leg (Inactive) H/O hemorrhoidectomy (Inactive) H/O: (Inactive) History of left breast biopsy (Inactive) S/P hysterectomy (Inactive) S/P insertion of iliac artery stent (Inactive) S/P thyroidectomy (Inactive) Family History Mother Cancer CAD (coronary artery disease) Brain tumor Grandfather CVA (cerebral vascular accident) Social History Smoking Status: Current every day smoker HPI low back: Details: ANGÉLICA WALLER returns today in followup on her lumbar spine MRI. She states that she continues to have lumbar pain 50% and bilateral buttock, thighs, calves and dorsal foot 50%. Her pain has progressed and she is sleeping in a recliner. She describes her pain as a burning pain which is constant. Patient went to the ED recently due to increased pain and groin pain which she was told was break through pain for her sciatica. Patient denies any recent visits to pain management. She is ambulating with a walker due to her back pain and MS. Patient notes that she had a shingles outbreak last month on her hips. Her pain is worse with everything and improved with nothing. She does smoke. She complains of lock up of her back. ROS Const Reports system reviewed and no additional complaints, except as docu Eyes Reports system reviewed and no additional complaints, except as docu ENT Reports system reviewed and no additional complaints, except as docu Card Reports system reviewed and no additional complaints, except as docu Resp Reports system reviewed and no additional complaints, except as docu GI Reports system reviewed and no additional complaints, except as docu Reports system reviewed and no additional complaints, except as docu Musc Reports back pain, Reports stiffness, Reports radiating pain into limb Skin/Breast Reports system reviewed and no additional complaints, except as [facility] Yes system reviewed and no additional complaints, except as [facility] Psych Reports system reviewed and no additional complaints, except as [facility] Endo Reports system reviewed and no additional complaints, except as docu Ortho Exam Spine Neuro: Yes Straight Leg Raise (negative bilaterally) General: alert, oriented x3 Capillary Refill <2sec: Yes Gait: antalgic, other (able to stand on heels. difficulty with toes due to MS) Motor: muscle tone normal throughout Sensory Exam: no sensory deficits noted DTR's: Rt Patellar: 2+, Lt Patellar: 2+, Rt Ankle: 2+, Lt Ankle: 2+ SPINE TESTING CERVICAL THORACIC LUMBAR Musculoskeletal General: Yes normal posture Thoracic/Lumbar Spine: straight leg raise negative bilaterally, pain with thoraco-lumbar ROM, thoraco-lumbar ROM limited, paraspinal tenderness Strength 0=absent - 5=normal R Hip Flexor (L1-3): 5, L Hip Flexor (L1-3): 5, R Quadriceps (L2-4): 5, L Quadriceps (L2-4): 5, R Anterior Tibialis (L4-5): 4 (giveway (baseline per pt)), L Anterior Tibialis (L4-5): 4 (giveway (baseline per pt)), R Hamstrings (L5-S1): 5, L Hamstrings (L5-S1): 5, GS (S1): 5, L GS (S1): 5, R Peroneals (S1): 5, L Peroneals (S1): 5 Assessment AND Plan Problems 1. Chronic bilateral low back pain with bilateral sciatica M54.42; M54.41; G89.29 Plan Imaging: MRI lumbar spine reveals diffuse spondylosis without central, lateral recess or foraminal stenosis I/R/P: 1. back pain 2. bilateral leg pain 3. MS 4. nicotine use 5. chronic opioid use Ms. Waller presents with continued back and bilateral leg pain. Her MRI lumbar spine reveals no significant stenosis. Recommend continued conservative treatment. Offered referral to physical therapy. Patient declined. Referral to pain management. Follow up as needed. Plan of care discussed. All questions answered. She is in understanding. Coding Level of Care Code Off vis,est,level 4 Diagnoses Chronic bilateral low back pain with bilateral sciatica M54.42; M54.41; G89.29 Back pain location: low back pain Chronicity: chronic Back pain laterality: bilateral Sciatica presence: with sciatica Sciatica laterality: bilateral sciatica 02/17/18 1453 <Electronically signed by Shefali Parson MD> Date Shefali Parson MD Cosigner Signature: Date (if applicable) CC: Daron Benton MD EMERGENCY DEPARTMENT Observed: 02/01/2018 Status: F Source: TOPPING SUMMARY 11:00 PM [facility] REPOSITORY [facility] Medical Records Department [address] [place] [address] Emergency Department Summary 02/01/18 1907 MR#: [id number] Acct: [id number] Name: ANGÉLICA WALLER Rep #: [id number] : 1955 62 From: Randi Grant MD PCP: Daron Benton MD Status: REG ER - ER Visit Summary Date of Service: 02/01/18 Chief Complaint: Right lower quadrant abdominal pain History of Present Illness: The patient is a 62 F presenting with right lower quadrant abdominal pain, groin pain. She states this has been going on for the last week. She denies any injury or heavy lifting. She has not felt a bulge in her groin. She has a history of sciatica and is awaiting back surgery. She denies bowel or bladder incontinence. Denies fever. Denies other complaints. History of cholecystectomy and appendectomy. Physical Examination: Vitals are stable. Patient is afebrile. Alert no acute distress. HEENT exam is unremarkable. Neck is supple. Lungs are clear and equal bilaterally. Heart is regular rate and rhythm. Abdomen is soft right inguinal tenderness with no hernia palpated, mild suprapubic tenderness, no rebound or guarding Extremities are unremarkable. Skin is warm and dry. Remainder of exam is unremarkable. Emergency Department Course and Treatment: Patient is given Dilaudid, Zofran with improvement. CBC, chemistries unremarkable. CT abdomen pelvis shows no acute process. Urinalysis shows 0-5 white blood cells. Advised to follow-up with primary care physician Dr. Benton. Advised return to ED if worsening complaints. Disposition: Discharge home Impression: Right groin pain, chronic back pain This note was generated with [employer] dictation software. It may contain incorrect words, spelling, and punctuation that were not noted in review of the chart prior to signing ED Disposition - Plan for ED Patient: Chief Complaint: Abd Pain Instructions: ED Abdominal Pain Unkn Cause, ED Sciatica Referrals: Daron Benton MD [Primary Care Provider] - What to do if you have Problems For any increased pain, shortness of breath, bleeding, nausea or vomiting, chest pain, or any unexpected problems, contact your Primary Care Provider. Call [facility] ([phone]) or report to the closest Emergency Room. Call 911 if necessary. 02/01/18 2300 <Electronically signed by Randi Grant MD> Date Randi Grant MD Cosigner Signature (If Indicated): Date CC: Daron Benton MD DISCHARGE INSTRUCTION Observed: 02/01/2018 Status: F Source: [place] 10:53 PM [facility] REPOSITORY [facility] Medical Records Department [address] [place] [address] Discharge Instruction 02/01/18 2252 MR#: [id number] Acct: [id number] Name: ANGÉLICA WALLER Rep #: [id number] : 1955 62 From: Randi Grant MD PCP: Daron Benton MD Status: [facility] ER ED Disposition - Plan for ED Patient: Chief Complaint: Abd Pain Instructions: ED Abdominal Pain Unkn Cause, ED Sciatica Referrals: Daron Benton MD [Primary Care Provider] - What to do if you have Problems For any increased pain, shortness of breath, bleeding, nausea or vomiting, chest pain, or any unexpected problems, contact your Primary Care Provider. Call [facility] ([phone]) or report to the closest Emergency Room. Call 911 if necessary. 02/01/18 4833 <Electronically signed by Randi Grant MD> Date Randi Grant MD Cosigner Signature (If Indicated): Date CC: Daron Benton MD URINALYSIS, COMPLETE Collected: 02/01/2018 Status: F Source: [place] 8:22 PM [facility] REPOSITORY Order Comment: Order Date: 02/01/18 Has pt arrived? Y How was Urine Obtained? CLEAN CATCH TYPE CODE TESTS RESULT OUT OF RANGE REFERENCE UNITS LAB L400.3000 Yellow COLOR Normal Yellow LAB L400.3050 Clear Normal CLARITY Sl. Cloudy LAB L400.3200 Normal mg/dl Normal GLUCOSE, UR Normal LAB L400.3300 Negative mg/dL Normal BILIRUBIN URINE Negative LAB L400.3400 Negative mg/dl Normal KETONE UR Negative LAB L400.3465 1.002-1.030 Normal SP.GR. DIPSTX 1.015 LAB L400.3550 5.0 - 8.0 pH UR Normal 6.0 LAB L400.3600 Negative mg/dl High PROT 15 DIPSTX LAB L400.3700 Normal mg/dl Normal UROBILI Normal LAB L400.3750 Negative Normal NITRITE UR Negative LAB L400.3780 Negative /ul High 10 OCCULT BLOOD-UR LAB L400.3800 Negative /ul High LEUK 25 ESTERASE LAB L400.4050 0-5 /hpf WBC Normal 0-5 SEEN LAB L400.4100 0-5 /hpf Normal RBC-UA 0-5 SEEN LAB L400.4150 5-10 /hpf SQUAM 0 Normal EPI SEEN LAB L400.4300 None Seen /hpf 0 Normal BACTERIA SEEN LAB L400.4350 <or=2+ /hpf 0 Normal MUCUS, URINE SEEN Performed By: #### L400.0001 #### [facility] [address] [place], [address] ABDOMEN/PELVIS W IV CONT Observed: 02/01/2018 Status: F Source: TOPPING ONLY 6:53 PM [facility] REPOSITORY [facility] Imaging Services [address] [place] [address] Abdomen/Pelvis W IV Cont ONLY MR#: [id number] Acct: [id number] Name: ANGÉLICA WALLER Rep #: [id number] : 1955 F 62 From: Citlaly Escalante MD PCP: Daron Benton MD Status: REG ER Study: Abdomen/Pelvis W IV Cont ONLY Date of Exam: 02/01/18 Exam# [id number] Ordering Dr: Randi Grant MD STUDY: CT ABDOMEN AND PELVIS WITH CONTRAST REASON FOR EXAM: Female, 62 years old. Right groin pain and low back pain. History of coronary artery disease with carotid surgery and brain aneurysm coiling. TECHNIQUE: Transaxial images were obtained from the dome of the diaphragm to the symphysis pubis without oral contrast. 100 ml of Isovue 300 contrast was administered. Sagittal and coronal images were reconstructed. Individualized dose optimization techniques were used for this CT. COMPARISON: None. FINDINGS: Multifocal linear areas of atelectasis or scarring at the left lung base. The visualized portions of the heart are within normal limits. Normal liver. Status post cholecystectomy with mild compensatory dilatation of the bile ducts. Negative for visualized filling defect. Normal spleen. Normal pancreas. Normal bilateral adrenal glands. Normal right kidney. Normal left kidney. Normal visualized stomach. Normal small intestine. Minimal diverticulosis. Otherwise normal colon without evidence of acute diverticulitis. There is non-visualization of the appendix. There is diffuse atherosclerotic calcification of the abdominal aorta, without a demonstrated aneurysm. Endovascular stent of the right common iliac artery. Severe atheromatous changes of the bilateral iliac arteries. There is probably a stenotic lesion at the distal end of the right iliac stent. Normal inferior vena cava. Normal urinary bladder. There is absence of the uterus consistent with a prior hysterectomy. Normal abdominal wall. There are diffuse degenerative changes of the visualized lumbar spine with a mild levoscoliosis. Epidural device enters at the L1 level extending into the thoracic area ending out of the field of view. CT/Abdomen/Pelvis W IV Cont ONLY IMPRESSION: Multifocal linear areas of atelectasis or scarring at the left lung base. Status post cholecystectomy with mild compensatory dilatation of the bile ducts without filling defect. No acute bowel related findings. Negative for evidence of obstruction, perforation or inflammatory bowel changes. Minimal diverticulosis without diverticulitis. The appendix is not visualized. Normal size of the kidneys bilaterally without hydronephrosis, renal, ureteral or bladder stones. Status post cholecystectomy. Negative for a groin mass, focal fluid collection or abscess. Atherosclerotic vascular changes as described above. Degenerative changes of the lumbar spine primarily at the L5-S1 level. Mild levoscoliosis. Electronically Signed: Citlaly Escalante MD at 20:06 EDT , Service support , CC: Randi Grant MD; Daron Benton MD State Assessed Properties Director: Signed CBC W/DIFF, AUTOMATED Collected: 02/01/2018 Status: F Source: TOPPING 6:00 PM [facility] REPOSITORY TYPE CODE TESTS RESULT OUT OF RANGE REFERENCE UNITS LAB L100.1000 4.4-11.0 K/mm3 Normal WBC 7.0 LAB L100.1200 4.2-5.4 M/mm3 Normal RBC 5.13 LAB L100.1300 12.0-15.0 g/dl High HGB 15.4 LAB L100.1400 37-47 % Normal HCT 46.2 LAB L100.1500 81-99 fL Normal MCV 90.1 LAB L100.1600 27.0-32.0 pg Normal MCH 30.0 LAB L100.1700 32-36 g/gl Normal MCHC 33.3 LAB L100.1810 11.6-14.6 % Normal RDW CV 14.1 LAB L100.1820 35.1-43.9 fl High RDW SD 46.5 LAB L100.1900 150-450 K/mm3 Normal PLT 177 LAB L100.2000 6.2-12.0 fl Normal MPV 10.0 LAB L100.2100 47-70 % High NEUT% 71.9 LAB L100.2200 19-41 % Low LY% 14.0 LAB L100.2300 0-10 % High MONO% 12.1 LAB L100.2400 0-5 % Normal EO% 1.4 LAB L100.2500 0-1 % Normal BASO% 0.3 LAB L100.2550 0.0-0.9 % Normal IM GRAN % 0.300 Result Comment: IG% - Immature Granulocytes (promyelocytes, myelocytes and metamyelocytes) > 1% indicates that a LEFT SHIFT is Present. LAB L100.2620 2.0-7.7 X10 3/uL Normal Absolute Neut 5.0 LAB L100.2720 0.83-4.51 X10 3/ul Normal Absolute Lymph 0.98 Performed By: #### L100.0100 #### [facility] [address] [place], [address] BASIC METABOLIC Collected: 02/01/2018 Status: F Source: TOPPING PROFILE (BMP) 6:00 PM [facility] REPOSITORY TYPE CODE TESTS RESULT OUT OF RANGE REFERENCE UNITS LAB L501.0100 74-106 mg/dL Normal GLU 97 Result Comment: Please note revised GLUCOSE reference range effective 2017. LAB L501.1000 7-18 mg/dL Normal BUN 13 LAB L501.1100 0.55-1.02 mg/dL Normal CREAT,SERUM 0.79 Result Comment: The validity of the calculated GFR AND GFRAA in patients over 70 years has not been determined. Clinical correlation is essential. LAB L501.1110 >60 mL/min Normal EST GFR 78 Result Comment: Non- GFR Calc LAB L501.1115 >60 mL/min Normal EST GFR - AA 94 Result Comment: GFR Calc LAB L501.1255 ml/min Normal Estimated CRCL 68.23 LAB L501.1300 10-20 RATIO Normal BUN/CRE 16.4 LAB L501.2200 8.5-10 mg/dL Normal .1 CA 8.9 LAB L501.5300 136-14 mmol/L Normal 5 NA 140 LAB L501.5600 3.5-5. mmol/L Normal 1 K 4.0 LAB L501.5900 98-107 mmol/L Normal CL 105 LAB L501.6100 21.0-3 mmol/L Normal 2.0 CO2 27.0 LAB L501.6200 5-15 Normal GAP 8 Performed By: #### L500.2500 #### [facility] [place], [address] CBC W/DIFF, AUTOMATED Collected: 01/28/2018 Status: F Source: TOPPING 11:12 AM [facility] REPOSITORY TYPE CODE TESTS RESULT OUT OF RANGE REFERENCE UNITS LAB L100.1000 4.4-11.0 K/mm3 Normal WBC 9.9 LAB L100.1200 4.2-5.4 M/mm3 Normal RBC 5.06 LAB L100.1300 12.0-15.0 g/dl High HGB 15.1 LAB L100.1400 37-47 % Normal HCT 45.0 LAB L100.1500 81-99 fL Normal MCV 88.9 LAB L100.1600 27.0-32.0 pg Normal MCH 29.8 LAB L100.1700 32-36 g/gl Normal MCHC 33.6 LAB L100.1810 11.6-14.6 % Normal RDW CV 14.3 LAB L100.1820 35.1-43.9 fl High RDW SD 46.1 LAB L100.1900 150-450 K/mm3 Normal PLT 201 LAB L100.2000 6.2-12.0 fl Normal MPV 10.7 LAB L100.2100 47-70 % High NEUT% 73.7 LAB L100.2200 19-41 % Low LY% 15.8 LAB L100.2300 0-10 % Normal MONO% 8.6 LAB L100.2400 0-5 % Normal EO% 1.2 LAB L100.2500 0-1 % Normal BASO% 0.3 LAB L100.2550 0.0-0.9 % Normal IM GRAN % 0.400 Result Comment: IG% - Immature Granulocytes (promyelocytes, myelocytes and metamyelocytes) > 1% indicates that a LEFT SHIFT is Present. LAB L100.2620 2.0-7.7 X10 3/uL Normal Absolute Neut 7.3 LAB L100.2720 0.83-4.51 X10 3/ul Normal Absolute Lymph 1.57 Performed By: #### L100.0100 #### [facility] [address] [place], [address] VITAMIN B12 Collected: 01/28/2018 Status: F Source: TOPPING 11:12 AM [facility] REPOSITORY TYPE CODE TESTS RESULT OUT OF RANGE REFERENCE UNITS LAB L503.0105 211-911 pg/mL Normal Vitamin B12 534 Performed By: #### L503.0105, L506.1000 #### [facility] [address] [place], [address] VITAMIN D,25 HYDROXY Collected: 01/28/2018 Status: F Source: TOPPING 11:12 AM [facility] REPOSITORY TYPE CODE TESTS RESULT OUT OF RANGE REFERENCE UNITS LAB L506.1000 29.95-100.01 ng/mL Normal Vitamin D 51.2 25-OH Result Comment: Vitamin D 25(OH) Status Range Deficiency <20 ng/mL (50nmol/L) Insuffciency 20 - 30 ng/mL (50 - 75 nmol/L) Sufficiency 30 - 100 ng/mL (75 - 250 nmol/L) Toxicity >100 ng/mL (>250 nmol/L) Performed By: #### L503.0105, L506.1000 #### [facility] [address] [place], [address] COMPREHENSIVE METABOLIC Collected: 01/28/2018 Status: F [facility]12 AM [facility] REPOSITORY Order Comment: Is Patient Taking Vitamins or Folic Acid Supplements? Y TYPE CODE TESTS RESULT OUT OF RANGE REFERENCE UNITS LAB L501.0100 74-106 mg/dL Normal GLU 86 Result Comment: Please note revised GLUCOSE reference range effective 2017. LAB L501.1000 7-18 mg/dL High BUN 19 LAB L501.1100 0.55-1.02 mg/dL Normal CREAT,SERUM 0.66 Result Comment: The validity of the calculated GFR AND GFRAA in patients over 70 years has not been determined. Clinical correlation is essential. LAB L501.1110 >60 mL/min Normal EST GFR 95 Result Comment: Non- GFR Calc LAB L501.1115 >60 mL/min Normal EST GFR - AA 115 Result Comment: GFR Calc LAB L501.1300 10-20 RATIO High BUN/CRE 28.6 LAB L501.1500 6.4-8.2 g/dL T Normal PROT 7.5 LAB L501.1800 3.2-5.0 g/dL Normal ALB 3.7 LAB L501.1950 2.2-4.2 g/dL Normal GLOB 3.8 LAB L501.2000 0.9-2.4 RATIO Normal A/G 1.0 LAB L501.2200 8.5-10.1 mg/dL CA Normal 8.9 LAB L501.4100 15-37 U/L Normal AST 20 LAB L501.4305 45-117 U/L High ALK P 128 LAB L501.4405 13-56 U/L Normal ALT 30 Result Comment: Please note revised ALT reference range effective 2017. LAB L501.4600 0.20-1.00 mg/dL Normal T BILI 0.40 LAB L501.5300 136-145 mmol/L Normal NA 140 LAB L501.5600 3.5-5.1 mmol/L Normal K 4.0 LAB L501.5900 98-107 mmol/L Normal CL 105 LAB L501.6100 21.0-32.0 mmol/L Normal CO2 25.0 LAB L501.6200 5-15 Normal GAP 10 Performed By: #### L500.4050, L501.6710, L501.04383, L501.9520, L503.6150, L503.6550, L506.0250, L506.0400 #### [facility] [address] [place], [place], [address] CRP Collected: 01/28/2018 Status: F Source: [place] 11:12 AM [facility] REPOSITORY Order Comment: Is Patient Taking Vitamins or Folic Acid Supplements? Y TYPE CODE TESTS RESULT OUT OF RANGE REFERENCE UNITS LAB L501.6710 0.0-3.0 mg/L High 4.81 C-REACTIVE PROT Result Comment: C-Reactive Protein (CRP) provides useful information for the diagnosis, therapy and monitoring of inflammatory processes and associated diseases. For the evaluation of Relative Risk for Cardiovascular Disease, a High Sensitivity CRP (HSCRP) should be ordered. Performed By: #### L500.4050, L501.6710, L501.22930, L501.9520, L503.6150, L503.6550, L506.0250, L506.0400 #### [facility] [address] [place], [place], [address] (898) FREE T3 Collected: 01/28/2018 Status: F Source: TOPPING 11:12 AM [facility] REPOSITORY Order Comment: Is Patient Taking Vitamins or Folic Acid Supplements? Y TYPE CODE TESTS RESULT OUT OF RANGE REFERENCE UNITS LAB L501.64390 2.18-3.98 pg/mL Normal FREE T3 2.2 Performed By: #### L500.4050, L501.6710, L501.96411, L501.9520, L503.6150, L503.6550, L506.0250, L506.0400 #### [facility] [address] [place], [place], [address] THYROID STIM HORMONE Collected: 01/28/2018 Status: F Source: TOPPING (TSH) 11:12 AM [facility] REPOSITORY Order Comment: Is Patient Taking Vitamins or Folic Acid Supplements? Y TYPE CODE TESTS RESULT OUT OF RANGE REFERENCE UNITS LAB L501.9520 0.358-3.74 uIU/mL Normal TSH 0.81 Performed By: #### L500.4050, L501.6710, L501.95833, L501.9520, L503.6150, L503.6550, L506.0250, L506.0400 #### [facility] [address] [place], [place], [address] IRON Collected: 01/28/2018 Status: F Source: TOPPING 11:12 AM [facility] REPOSITORY Order Comment: Is Patient Taking Vitamins or Folic Acid Supplements? Y TYPE CODE TESTS RESULT OUT OF RANGE REFERENCE UNITS LAB L503.6150 50-170 ug/dL Normal IRON 82 Performed By: #### L500.4050, L501.6710, L501.34875, L501.9520, L503.6150, L503.6550, L506.0250, L506.0400 #### [facility] [address] [place], [place], [address] FERRITIN Collected: 01/28/2018 Status: F Source: TOPPING 11:12 AM [facility] REPOSITORY Order Comment: Is Patient Taking Vitamins or Folic Acid Supplements? Y TYPE CODE TESTS RESULT OUT OF RANGE REFERENCE UNITS LAB L503.6550 8-252 ng/mL Normal FERRITIN 75 Performed By: #### L500.4050, L501.6710, L501.18644, L501.9520, L503.6150, L503.6550, L506.0250, L506.0400 #### [facility] [place], [place], [address] FOLATES, (FOLIC ACID) Collected: 01/28/2018 Status: F Source: TOPPING 11:12 AM [facility] REPOSITORY Order Comment: Is Patient Taking Vitamins or Folic Acid Supplements? Y TYPE CODE TESTS RESULT OUT OF RANGE REFERENCE UNITS LAB L506.0250 3.1-55.4 ng/mL Normal FOLATES 13.50 Performed By: #### L500.4050, L501.6710, L501.12223, L501.9520, L503.6150, L503.6550, L506.0250, L506.0400 #### [facility] [place], [place], [address] T4 FREE DIRECT Collected: 01/28/2018 Status: F Source: TOPPING 11:12 AM [facility] REPOSITORY Order Comment: Is Patient Taking Vitamins or Folic Acid Supplements? Y TYPE CODE TESTS RESULT OUT OF RANGE REFERENCE UNITS LAB L506.0400 0.76-1.46 ng/dL Normal T4 FREE 1.25 DIRECT Performed By: #### L500.4050, L501.6710, L501.25283, L501.9520, L503.6150, L503.6550, L506.0250, L506.0400 #### [facility] [address] [place], [address] PTHIN Collected: 01/28/2018 Status: F Source: [place] 11:12 AM [facility] REPOSITORY TYPE CODE TESTS RESULT OUT OF RANGE REFERENCE UNITS LAB L509.1000 18.4-80.1 pg/mL Normal PTHIN 49.5 Result Comment: Please Note: PTH INTACT METHOD AND REFERENCE RANGE CHANGE Effective 11/07/2017. Performed By: #### L509.1000 #### [facility] [address] [place], [address] ANTINUCLEAR ANTIBODIES Collected: 01/28/2018 Status: F Source: [place] DIRECT 11:12 AM [facility] REPOSITORY TYPE CODE TESTS RESULT OUT OF RANGE REFERENCE UNITS LAB L3100.5475 Negative Normal Negative DENNIS-DIRECT Result Comment: Performed at: [facility] [id number] Steam Shovel Oiler: Damion Richards PhD, Phone: [phone] Performed By: #### L3100.5475 #### [facility] (refer to report for specific site) refer to report for address and phone number COPPER, SERUM OR Collected: 01/28/2018 Status: F Source: [place] PLASMA 11:12 AM [facility] REPOSITORY TYPE CODE TESTS RESULT OUT OF RANGE REFERENCE UNITS LAB L3300.0100 72-166 ug/dL Normal COPPER 123 Result Comment: Detection Limit = 5 Performed By: #### L3300.0100, L3400.0920 #### [facility] (refer to report for specific site) refer to report for address and phone number VITAMIN A, RETINOL Collected: 01/28/2018 Status: F Source: [place] 11:12 AM [facility] REPOSITORY TYPE CODE TESTS RESULT OUT OF RANGE REFERENCE UNITS LAB L3400.0920 26-82 ug/dL Normal VIT A, [id number] 48 Result Comment: Effective February 18, 2018 Vitamin A, Serum will be changing to the LC/MS-MS methodology. The reference interval will be changing to: < 6 years Not Estab. 6 - 11 years 22.8 - 54.4 12 - 19 years 28.9 - 75.7 20 - 39 years 31.2 - 89.1 40 - 59 years 33.1 - 100.0 >59 years 36.4 - 108.0 Performed at: - [facility] [address] [id number] Steam Shovel Oiler: Mendez Rodriguez MD, Phone: [phone] Performed By: #### L3300.0100, L3400.0920 #### [facility] (refer to report for specific site) refer to report for address and phone number MISCELLANEOUS LAB Collected: 01/28/2018 Status: F Source: [place] PROCEDURE 11:12 AM [facility] REPOSITORY Order Comment: Test(s) Ordered: #[id number] WHOLE BLOOD RF TYPE CODE TESTS RESULT OUT OF RANGE REFERENCE UNITS LAB L801.1541 Normal [facility] TEST Result Comment: TEST RESULT LIMITS OmegaCheck(TM) (EPA+DPA+DHA) OmegaCheck(TM) 2.9 Low % by wt >5.4 Relative Risk: HIGH Increasing blood levels of long-chain n-3 fatty acids are associated with a lower risk of sudden cardiac (1). Based on the top (75th percentile) and bottom (25th percentile) quartiles of the CHL reference population, the following risk categories were established for OmegaCheck: A cut-off of >=5.5% by wt defines a population at low relative risk, 3.8-5.4% by wt defines a population at moderate relative risk, and <=3.7% by wt defines a population at high relative risk of sudden cardiac . The totality of the scientific evidence demonstrates that when consumption of fish oils is limited to 3 g/day or less of EPA and DHA, there is no significant risk for increased bleeding time beyond the normal range. A daily dosage of 1 gram of EPA and DHA lowers the circulating triglycerides by about 7-10% within 2 to 3 weeks. (Reference: 1-Yemi et al. NEJ. 2002; 346: 8980-3188). Arachidonic Acid/EPA Ratio 16.5 High <5.0 Davenport-6/Davenport-3 Ratio 12.7 High <4.5 Davenport-3 total 2.9 % by wt EPA 0.6 Low % by wt >2.0 DPA 1.0 Low % by wt >1.0 DHA 1.3 Low % by wt >4.0 Davenport-6 total 36.7 % by wt [facility] measures a number of omega-6 fatty acids with AA and LA being the two most abundant forms reported. Arachidonic Acid 9.9 High % by wt <9.0 Linoleic Acid 23.0 High % by wt <20.0 This test is performed by a Liquid Chromatography-Tandem Mass Spectrometry (LC/MS/MS) method. This test was developed and its performance characteristics determined by the [facility] It has not been cleared or approved by the U.S. FDA. The [facility] is regulated under Clinical Laboratory Improvement Amendments (CLIA) as qualified to perform high-complexity testing. This test is used for clinical purposes. It should not be regarded as investigational or for research. TESTING PERFORMED AT [facility]. ORIGINAL REPORT ON FILE IN LAB CONTAINS ADDITIONAL TEST SITE INFORMATION. Performed By: #### L801.1541 #### [facility] [address] [facility] [place], [address] SPINE LUMBAR Observed: 01/16/2018 Status: F Source: TOPPING (ROUTINE) 4:06 PM [facility] REPOSITORY [facility] Imaging Services [address] [place] [address] Spine Lumbar (Routine) MR#: [id number] Acct: [id number] Name: ANGÉLICA WALLER Rep #: [id number] : 1955 F 62 From: Erasmo Lagunas MD PCP: Care Physician, No Primary Status: REG CLI Study: Spine Lumbar (Routine) Date of Exam: 01/16/18 Exam# [id number] Ordering Dr: Shefali Parson MD STUDY: MRI LUMBAR SPINE WITHOUT CONTRAST REASON FOR EXAM: Female, 62 years old. Back pain which radiates down the right TECHNIQUE: Standardized fat and water weighted pulse sequences were obtained in the sagittal and axial planes. COMPARISON: None FINDINGS: There is a 19 degrees lumbar scoliosis with convexity to the left. There is normal alignment of the vertebrae. There are no acute fractures and no abnormal marrow infiltrative processes. There is narrowing of the L5-S1 disc space. The rest of the disc spaces are of normal height and signal intensity. The conus medullaris terminates at L1. T12-L1: Normal endplates. Normal disc height, hydration and morphology. Normal bilateral facet joints. Normal central canal and bilateral lateral recesses. Normal bilateral intervertebral neural foramina. Normal lumbar lordosis. There is no substantial scoliosis. Normal conus medullaris that terminates at the L1-2: Normal endplates. Normal disc height, hydration and morphology. Normal bilateral facet joints. Normal central canal and bilateral lateral recesses. Normal bilateral intervertebral neural foramina. L2-3: Normal endplates. Normal disc height, hydration and morphology. Normal bilateral facet joints. Normal central canal and bilateral lateral recesses. Normal bilateral intervertebral neural foramina. L3-4: Normal endplates. Normal disc height, hydration and morphology. Normal bilateral facet joints. Normal central canal and bilateral lateral recesses. Normal bilateral intervertebral neural foramina. L4-5: Normal endplates. Normal disc height, hydration and morphology. Normal bilateral facet joints. Normal central canal and bilateral lateral recesses. Normal bilateral intervertebral neural foramina. L5-S1: Disc space narrowing with Modic endplate changes and small marginal osteophytes but no focal disc protrusion or extrusion and no central canal stenosis. Minimal degenerative changes involving the facet joints.. 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 No focal disc protrusions or extrusions and no central canal stenosis. A mild 19 degree lumbar scoliosis with convexity to the left Electronically Signed: Erasmo Lagunas, at 4:45 EST Tel , Service support , CC: No Primary Care Physician; Shefali Parson MD State Assessed Properties Director: Signed ORTHOPEDIC VISIT Observed: 01/06/2018 Status: F Source: TOPPING REPORT 1:09 PM [facility] REPOSITORY [facility] [address] [place] [address] [address] [place] [address] OFFICE VISIT Date of Service: 01/01/18 MR#: [id number] Acct: [id number] Name: ANGÉLICA WALLER Rep #: [id number] : 1955 Provider: Shefali Parson MD Age/Sex: 62/F [place] [facility] [place]: Signed Intake Intake Visit Reasons: LOW BACK Is patient in pain?: Yes Allergies colestipol [From Colestid] Allergy (Mild, Verified 12/18/17 11:07) unknown temazepam [From Restoril] Allergy (Mild, Verified 12/18/17 11:07) unknown pregabalin [From Lyrica] Allergy (Verified 12/18/17 11:07) Hives Antihistamines - Alkylamine Adverse Reaction (Verified 12/18/17 11:07) Nausea/Vom/Diarrhea Antihistamines - Ethanolamine Adverse Reaction (Verified 12/18/17 11:07) Nausea/Vom/Diarrhea Antihistamines - Ethylenediamine Adverse Reaction (Verified 12/18/17 11:07) Nausea/Vom/Diarrhea Antihistamines - Piperazine Adverse Reaction (Verified 12/18/17 11:07) Nausea/Vom/Diarrhea Antihistamines - Piperidine Adverse Reaction (Verified 12/18/17 11:07) Nausea/Vom/Diarrhea aspirin Adverse Reaction (Verified 12/18/17 11:07) I'M ON BLOOD THINNERS codeine Adverse Reaction (Verified 12/18/17 11:07) Nausea morphine Adverse Reaction (Verified 12/18/17 11:07) Nausea Gdemxmf-Cvx-Pdz Reductase Inhibitor Adverse Reaction (Verified 12/18/17 11:07) Nausea STEROIDS BY MOUTH Adverse Reaction (Uncoded 10/15/17 17:56) Upset Stomach Medications Baclofen [Lioresal] 20 mg PO Q6H PRN PRN 12/16/13 [History Confirmed 10/15/17] Cholecalciferol (Vitamin D3) [Vitamin D3] 5,000 unit PO DAILY 12/16/13 [History Confirmed 10/15/17] Clopidogrel Bisulfate [Plavix] 75 mg PO QODAY 12/16/13 [History Confirmed 10/15/17] Levothyroxine [Synthroid] 50 mcg PO DAILY 12/16/13 [History Confirmed 10/15/17] Gabapentin [Neurontin] 800 mg PO 4X/DAY 01/24/15 [History Confirmed 10/15/17] Oxycodone HCl/Acetaminophen [Percocet 5/325] 1 tab PO Q6H PRN PRN #10 tab 10/15/17 [Rx] Triamcinolone 0.5% Cream [Triamcinolone Acetonide] 1 applic TOPICAL BID 10/15/17 [History Confirmed 10/15/17] PFS Medical History Fatty liver (Acute) Goiter (Acute) Thrombocytopenia (Acute) GERD (gastroesophageal reflux disease) (Chronic) Hypertension (Chronic) Multiple sclerosis (Chronic) Osteoarthritis (Chronic) Osteoporosis (Chronic) Psoriasis (Chronic) Psoriatic arthritis (Chronic) Surgical History Fracture of right lower leg (Inactive) H/O hemorrhoidectomy (Inactive) H/O: (Inactive) History of left breast biopsy (Inactive) S/P hysterectomy (Inactive) S/P insertion of iliac artery stent (Inactive) S/P thyroidectomy (Inactive) Family History Mother Cancer CAD (coronary artery disease) Brain tumor Grandfather CVA (cerebral vascular accident) Social History Smoking Status: Current every day smoker HPI LOW BACK: Chief Complaint: low back pain Details: ANGÉLICA WALLER is a 62 year old RHD F referred by Dr Solis here today for 50% low back pain and 50% buttock, posterior thigh, posterior calf and dorsal/plantar foot pain and paresthesias. She has had low back pain since 1986 that has progressively worsening over the past year. Her leg pain started about 1 year ago. She complains of her back locking up. Her pain is worse with walking and laying and improved with sitting and ice. She takes norco twice daily for the past 2 months. Patient denies any recent physical therapy, chiropractor visits or injections due to her worsening pain. She has had accupuncture in the 1980s. She has had injections by Dr. Chavarria and Dr. Nobles 2 years ago. She had a pain pump, which did not help and was removed. She denies difficultly with hand dexterity or bowel or bladder issues. She has used a walker for the past 4 years. She notes that she has neuropathy in her bilateral feet but also has multiple sclerosis. She was diagnosed with MS 38 years ago and has a neurologist. She has had a carotid endarterectomy, iliac stents due to peripheral artery disease and a brain aneurysm. She does smoke. She is retired. She denies constitutional symptoms. ROS Const Reports system reviewed and no additional complaints, except as docu Eyes Reports system reviewed and no additional complaints, except as docu ENT Reports system reviewed and no additional complaints, except as docu Card Reports system reviewed and no additional complaints, except as docu Resp Reports system reviewed and no additional complaints, except as docu GI Reports system reviewed and no additional complaints, except as docu Reports system reviewed and no additional complaints, except as docu Musc Reports back pain Skin/Breast Reports system reviewed and no additional complaints, except as docu Neuro Yes system reviewed and no additional complaints, except as docu Psych Reports system reviewed and no additional complaints, except as docu Endo Reports system reviewed and no additional complaints, except as docu Ortho Exam Spine Neuro: Yes Stein's (negative bilaterally), Clonus (negative bilaterally) and Babinski (withdrawal bilaterally) General: alert, oriented x3 Palpable Pulses: 2+ dp/pt pulses bilaterally Gait: normal gait (with walker. able to heel and toe stand) Motor: strength 5/5 throughout Sensory Exam: other (decreased sensation in bialteral legs nondermatomal) DTR's: Rt Triceps: 2+, Lt Triceps: 2+, Lt Biceps: 2+, Rt Brachioradialis: 2+, Lt Brachioradialis: 2+, Rt Patellar: 2+, Lt Patellar: 2+, Rt Ankle: 2+, Lt Ankle: 2+ Plantar Reflexes: Withdrawal: bilateral Coordination: other (unable to romberg or tandem due to MS) SPINE TESTING CERVICAL THORACIC LUMBAR SLR: Negative Musculoskeletal General: Yes normal gait and normal posture Cervical Spine: cervical ROM normal Thoracic/Lumbar Spine: pain with thoraco-lumbar ROM, thoraco- lumbar ROM limited (worse with lumbar extension), lumbar spinal tenderness (hyperesthesia diffusely) Strength 0=absent - 5=normal Deltoid R (C5): 5, Deltoid L (C5): 5, R Bicep (C5-6): 5, L Bicep (C5-6): 5, R Wrist Extensor (C6): 5, L Wrist Extensor (C6): 5, R Tricep (C7): 5, L Tricep (C7): 5, R Finger Flexors (C8): 5, L Finger Flexors (C8): 5, R First Dorsal Interossei (C8): 5, L First Dorsal Interossei (C8): 5, R Hip Flexor (L1-3): 5, L Hip Flexor (L1-3): 5, R Quadriceps (L2-4): 5, L Quadriceps (L2-4): 5, R Anterior Tibialis (L4-5): 5, L Anterior Tibialis (L4- 5): 5, R Hamstrings (L5-S1): 5, L Hamstrings (L5-S1): 5, GS (S1): 5, L GS (S1): 5, R Peroneals (S1): 5, L Peroneals (S1): 5 Assessment AND Plan Problems 1. Chronic bilateral low back pain with bilateral sciatica M54.42; M54.41; G89.29 Plan Imaging: XR lumbar spine 04/12/2017 reveals diffuse spondylosis MRI lumbar spine 03/2016 reveals diffuse spondylosis without significant stenosis I/R/P: 1. back pain 2. bilateral leg pain 3. MS 4. nicotine use 5. chronic opioid use Ms. Waller presents with back and bilateral leg pain. Recommend MRI lumbar spine given her last imaging was 2 years ago and she has worsened despite conservative treatment. Referral for updated physical therapy, home program. XR lumbar spine today. Follow up after imaging or sooner if issues arise. Plan of care discussed. All questions answered. She is in understanding. Orders Orders: Coding Level of Care Code Off vis,new,level 4 Diagnoses Chronic bilateral low back pain with bilateral sciatica M54.42; M54.41; G89.29 Back pain location: low back pain Chronicity: chronic Back pain laterality: bilateral Sciatica presence: with sciatica Sciatica laterality: bilateral sciatica 01/06/18 1309 <Electronically signed by Shefali Parson MD> Date Shefali Parson MD Cosigner Signature: Date (if applicable) CC: Benita Solis DO L/S SPINE COMP/W Observed: 01/01/2018 Status: F Source: TOPPING BENDING VIEWS 3:37 PM [facility] REPOSITORY [facility] Imaging Services [address] [place] [address] L/S Spine Comp/w Bending Views MR#: [id number] Acct: [id number] Name: ANGÉLICA WALLER Rep #: [id number] : 1955 F 62 From: Mika Hanley MD PCP: Care Physician, No Primary Status: REG CLI Study: L/S Spine Comp/w Bending Views Date of Exam: 01/01/18 Exam# [id number] Ordering Dr: Shefali Parson MD STUDY: X-RAY - LUMBOSACRAL SPINE REASON FOR EXAM: Female, 62 years old. Low back pain TECHNIQUE: 7 view(s) of the lumbosacral spine were obtained. Flexion and extension views obtained COMPARISON: 04/12/2017 FINDINGS: No significant change. Normal lumbar lordosis. There is no substantial scoliosis. There is normal alignment of the vertebrae. Decreased range of motion with flexion and extension but no subluxations. Normal vertebral bodies and endplates. Degenerative disc disease at L5-S1, stable. Otherwise normal disc space heights. Electrical lead runs into the spinal canal at the level of L2-L3. Normal bilateral sacral ala, sacroiliac joints, and visualized sacrum. There is atherosclerotic calcification of the abdominal aorta without a demonstrated aneurysm. Stable right common iliac stent RAD/L/S Spine Comp/w Bending Views IMPRESSION: No change. No acute abnormality. Degenerative disc disease at L5-S1. Electronically Signed: Mika Hanley MD at 23:51 EST , Service support , CC: No Primary Care Physician; Shefali Parson MD State Assessed Properties Director: Signed PROGRESS Observed: 12/22/2017 Status: COMPLETED Source: [place] 12:08 PM CLINIC OTHER CAMPUS REPOSITORY HNO ID: [id number] Author: Yogesh Onofre Service: (none) Author Type: Physician Type: Progress Notes Filed: 12/22/2017 12:15 PM Note Text: This patient is seen today in follow-up of her testing with regard to her carotid artery disease. Dr. La performed a carotid carotid bypass on this patient in the past and she is here today for follow- up of that as well as her peripheral vascular disease. She currently states that she is really not having any significant symptoms with regard to her peripheral vascular occlusive disease. At this point in time I review her Dopplers and look at the numbers related to her carotid carotid bypass and these really no seem to change from previous studies. I think the bypass is open and while there are some elevated velocities I think this relates more to the angle of the anastomoses and the probe as opposed to actually any significant severe stenosis. Patient is asymptomatic with no evidence of any type of carotid symptomatology. She has no evidence of any stroke or strokelike symptomatology. She has had no TIAs and at this point in time is stable from that perspective. At this point in time she tells me she is told that she has had some subclavian stenosis by her other vascular surgeon and we go into a discussion of this point in time about the fact that she is also being followed by Dr. Nava for her vascular disease. With this being the case and with there being no real good reason for to vascular surgeons to be following the same patient for the same issues I discussed with the patient the possibility that potentially she should continue her follow-up with Dr. Nava as he seems to be primarily managing these problems here in [place]. At this point in time I tell her that at any point we will be very glad to see her back and take care of any problems that she wishes but I assure her that Dr. Nava is a very good vascular surgeon who can certainly deal with any of the issues that we might have to deal with with regard to her vascular disease. At this juncture I tell her that we will follow-up with her on an as-needed basis as long as she continues her follow up with Dr. Nava. She seems satisfied with this plan and will follow-up with Dr. Nava for future vascular surgery concerns. I spent 15 minutes in the visit, with more than 50% of the total uoxu-se-bbck time of the visit in counseling / coordination of care. CNOV Observed: 12/21/2017 Status: COMPLETED Source: [place] 10:30 AM [facility] OTHER [place] REPOSITORY Office Visit (AGMIL) CHRISTINANGÉLICA Mayda ([id number]) 1955 F Date Time Provider Department 12/21/17 10:30 AM YOGESH ONOFRE During your visit today, we recorded the following information about you: Pulse Respiration Blood pressure Weight 78/minute 16/minute 132/70 63.5 kg Height 1.676 m Yogesh Onofre MD 12/22/2017 12:15 PM Signed This patient is seen today in follow-up of her testing with regard to her carotid artery disease. Dr. La performed a carotid carotid bypass on this patient in the past and she is here today for follow-up of that as well as her peripheral vascular disease. She currently states that she is really not having any significant symptoms with regard to her peripheral vascular occlusive disease. At this point in time I review her Dopplers and look at the numbers related to her carotid carotid bypass and these really no seem to change from previous studies. I think the bypass is open and while there are some elevated velocities I think this relates more to the angle of the anastomoses and the probe as opposed to actually any significant severe stenosis. Patient is asymptomatic with no evidence of any type of carotid symptomatology. She has no evidence of any stroke or strokelike symptomatology. She has had no TIAs and at this point in time is stable from that perspective. At this point in time she tells me she is told that she has had some subclavian stenosis by her other vascular surgeon and we go into a discussion of this point in time about the fact that she is also being followed by Dr. Nava for her vascular disease. With this being the case and with there being no real good reason for to vascular surgeons to be following the same patient for the same issues I discussed with the patient the possibility that potentially she should continue her follow-up with Dr. Nava as he seems to be primarily managing these problems here in [place]. At this point in time I tell her that at any point we will be very glad to see her back and take care of any problems that she wishes but I assure her that Dr. Nava is a very good vascular surgeon who can certainly deal with any of the issues that we might have to deal with with regard to her vascular disease. At this juncture I tell her that we will follow-up with her on an as-needed basis as long as she continues her follow up with Dr. Nava. She seems satisfied with this plan and will follow-up with Dr. Nava for future vascular surgery concerns. I spent 15 minutes in the visit, with more than 50% of the total kdsa-kk-uzhp time of the visit in counseling / coordination of care. Referring Provider: ZHANE PARRA [[id number]] Allergies As of Date: 12/21/2017 Noted Allergy Reaction ANTIHISTAMINES 04/28/2004 Comments: messes her head up ASA (SALICYLATES) 12/04/2008 CODEINE 04/28/2004 Comments: nausea FENTANYL 02/19/2012 14 - Other: See Comments Comments: Sweating/ Flushing MORPHINE 04/28/2004 Comments: nausea and vomiting PLAVIX (CLOPIDOGREL BISULFATE) 12/18/2011 14 - Other: See Comments Comments: Heartburn PREDNISONE 12/15/2008 Comments: Destroyed bone. [id number] REDUCTASE INHIBIT*04/27/2011 5 - Intolerance TRICOR (FENOFIBRATE MICRONIZED) 04/27/2011 5 - Intolerance Date Reviewed: 12/21/2017 Reviewed by: Romelia Tripp LPN - Fully Assessed Reason for Visit: Peripheral Vascular Disease (PVD) [3545] Cmt: Angélica is here for follo up PVD AND Carotid stenosis. PVR AND Carotid us done 12/03/17 Stenosis [1326] Primary Visit Diagnosis:Internal carotid artery stenosis, bilateral [I65.23] Other Visit Diagnosis:Peripheral vascular occlusive disease (HCC) [I73.9] Prescriptions as of 12/21/2017 Sig: BACLOFEN 40,000 MCG/20 ML (2,* 50 mcg by INTRATHECAL route f* HYDROCODONE 5 MG-ACETAMINOPHE* Take 1 tablet by mouth every * CLOPIDOGREL 75 MG TABLET Take 1 tablet by mouth every * GABAPENTIN 400 MG CAPSULE Take 1 capsule by mouth three* Patient taking differently: Take 800 mg by mouth three ti* CALCIUM CARBONATE-VITAMIN D3 * Take by mouth twice daily. LEVOTHYROXINE 25 MCG TABLET Take 50 mcg by mouth once celia* MELATONIN 5 MG TABLET Take 5 mg by mouth. 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 [F43.21]INVALID FOR* MULTIPLE SCLEROSIS [G35] INVALID FOR* HYPERLIPIDEMIA NEC/NOS [E78.5] INVALID FOR* THYROID NODULE NODULE, NONTOXIC (Left) [E04.1] INVALID FOR* Abnormal Mammogram, Unspecified [R92.8] INVALID FOR* Fibrocystic Disease of Breast [N60.19] INVALID FOR* Cholelithiasis NOS [K80.20] INVALID FOR* Acute cholecystitis [K81.0] INVALID FOR* History of adenomatous polyp of colon [Z86.010] INVALID FOR*01/20/2016 Chronic GERD [K21.9] INVALID FOR*01/20/2016 Carotid artery stenosis, asymptomatic [I65.29] Peripheral vascular occlusive disease (HCC) [I7* Letter Text Encounter Status:Closed by YOGESH ONOFRE MD on 12/22/17 LOWER EXT ARTERIAL Observed: 12/05/2017 Status: F Source: ZACK STUDY 8:26 AM [facility] REPOSITORY [facility] Cardiovascular Services [address] [place] [address] 12/05/17822 MR#: [id number] Acct: [id number] Name: ANGÉLICA WALLER Rep #: [id number] : 1955 62 From: Kam Nava MD Attending Dr: YOGESH ONOFRE MD Status: REG CLI Ordering Dr: Date: 12/05/17 Location: [facility] Sex: F C Admitted: Arterial Study - Arterial Study Arterial Study: Patient: Angélica Waller Date of scan 12/03/[address] Onofre Interpreting physician Dr. Nava Indication patient with known PVD and iliac stents comes in for routine PVRs Interpretation: Right lower extremity PVR shows fairly normal pulsatile flow from the low thigh to the calf ankle up through the digits JAY of the posterior tibial 1.01 in the dorsalis pedis 0.98 duplex of this shows by both of these to be biphasic flow. Digital brachial index is 0.9 Left lower extremity with again adequate pulsatile flow from the thigh down to the calf ankle up through the digits JAY the posterior tibial 1.07 with biphasic flow in 1.18 at the dorsalis pedis with triphasic flow noted. Digital brachial index of 1.07. Impression: 1. Right lower extremity with no evidence of significant arterial occlusive disease at rest with an JAY 1.01. 2. Left lower extremity with no evidence of significant arterial occlusive disease at rest with an AJY 1.18 and triphasic flow noted. 3. bilateral normal digit brachial index 12/05/17 08 <Electronically signed by Kam Nava MD> Date Kam Nava MD CC: No Primary Care Physician; YOGESH ONOFRE MD Date Dictated: 12/05/17822 Date Transcribed: 12/05/17822 State Assessed Properties Director: HECTOR Signed CAROTID DUPLEX Observed: 12/05/2017 Status: F Source: TOPPING ULTRASOUND 8:10 AM [facility] REPOSITORY [facility] Cardiovascular [place] [address] Carotid Duplex Ultrasound 12/03/17 1257 MR#: [id number] Acct: [id number] Name: ANGÉLICA WALLER Rep #: [id number] : 1955 62 From: Kam Nava MD Attending Dr: YOGESH ONOFRE MD Status: REG CLI Ordering Dr: Yogesh Onofre MD Date: 12/03/17 Location: [facility] Sex: F C Admitted: Reason For Study: Carotid stenosis with bypass graft Rt. Velocities/BP Lt. Velocities/BP LT CCA Inflow - 247.0 cm/sec Prox CCA 200.0/32.7 cm/sec. Prox Anas - 311.0/29.9 cm/sec Mid CCA 241.0/41.9 cm/sec. Prox graft 202.0/22.6 cm/sec Dist CCA 204.0/34.0 cm/sec. Mid graft - 166.0/9.2 cm/sec Prox ICA 99.5/26.2 cm/sec. Dist graft - 152.0/12.3 cm/sec Mid ICA 109.0/36.1 cm/sec. Dist Anas -357.0/35.9 cm/sec. Dist ICA 118.0/44.1 cm/sec. Prox CCA 55.0 cm/sec. Prox ECA 124.0/16.6 cm/sec. Mid CCA 69.7 cm/sec. Dist CCA 112.0 cm/sec. Prox ICA 243.0/50.5 cm/sec. Mid ICA 145.0/53.7 cm/sec. Dist ICA 113.0/43.2 cm/sec. Prox ECA 221.0 cm/sec. Rt. Vert. 26.9 cm/sec. Right Extracranial There is no significant atherosclerotic plaque noted in the right common carotid artery. There is homogeneous, smooth atherosclerotic plaque noted in the right internal carotid artery. There is intimal thickening but no significant atherosclerotic plaque noted in the right external carotid artery. Antegrade flow is noted in the right vertebral artery. Left Extracranial There is homogeneous, smooth atherosclerotic plaque noted in the left common carotid artery. There is heterogeneous, irregular atherosclerotic plaque noted in the left internal carotid artery. There is no significant atherosclerotic plaque noted in the left external carotid artery. Biphasic flow is noted in the left vertebral artery. Procedure Carotid Duplex 76065. Exam performed in department. Interpretation Summary Moderate (50-69%) stenosis right extracranial internal carotid. Mild (<50%) stenosis left extracranial internal carotid. Flow within the right verterbral artery is antegrade. Flow within the left verterbral artery is bidirectional, consistent with subclavian steal phenomenon. Stenosis with elevated psv at proximal and distal bypass jaime anastamosis. Further evaluation as warranted. Ordering Physician: YOGESH ONOFRE Referring Physician: YOGESH ONOFRE Performed By: Brittney Flores RVT 12/05/17 0810 Date Kam Nava MD CC: No Primary Care Physician; YOGESH ONOFRE MD Date Dictated: 12/03/17 1257 Date Transcribed: 12/05/17 0810 State Assessed Properties Director: Signed ALLERGIES ALLERGIES DATE TYPE / CODE NAME / CODE REACTION SEVERITY SOURCE Drug Antihistamines - Nausea/Vom/Diar Unknown [facility] 8 Allergy/770547943 Alkylamine/N522792 [facility] (SNOMED [facility]) 797(RXNORM) Hospital Repository Drug Antihistamines - Nausea/Vom/Diar Unknown [place] 8 Allergy/900580125 Ethylenediamine/F0 [facility] (SNOMED CT) 27159605(RXNORM) Hospital Repository Drug Antihistamines - Nausea/Vom/Diar Unknown [place] 8 Allergy/394666892 Ethanolamine/F0010 radha [facility] (SNOMED CT) 92084(RXNORM) Hospital Repository Drug Antihistamines - Nausea/Vom/Diar Unknown [place] 8 Allergy/766645178 Piperidine/F035540 radha [facility] (SNOMED CT) 800(RXNORM) Hospital Repository Drug Antihistamines - Nausea/Vom/Diar Unknown [place] 8 Allergy/649836410 Piperazine/M446277 radha [facility] (SNOMED CT) 801(RXNORM) Hospital Repository Drug Zhasfic-Ycv-Osf Nausea Unknown [place] 8 Allergy/531687347 Reductase [facility] (SNOMED CT) Inhibitor/B3855558 Hospital 95(RXNORM) Repository Drug morphine/C20959517 Nausea Unknown [place] 8 Allergy/810181516 5(RXNORM) [facility] (SNOMED CT) Hospital Repository Drug codeine/A011014666 Nausea Unknown [place] 8 Allergy/772323973 (RXNORM) [facility] (SNOMED CT) Hospital Repository Drug aspirin/X736636752 I'M ON BLOOD Unknown [place] 8 Allergy/570657981 (RXNORM) THINNERS [facility] (SNOMED CT) Hospital Repository Drug pregabalin/O747682 Hives [place] 8 Allergy/811966408 083(RXNORM) [facility] (SNOMED CT) Hospital Repository Miscellaneous STEROIDS BY MOUTH Upset Stomach Unknown [place] 8 Allergy/779670551 [facility] (SNOMED CT) Hospital Repository Drug temazepam/S5938068 Nausea/Vom/Diar [place] 8 Allergy/986826439 50(RXNORM) radha [facility] (SNOMED CT) Hospital Repository Drug colestipol/G936336 Unknown [place] 8 Allergy/507964524 708(RXNORM) [facility] (SNOMED CT) Hospital Repository DRUG FENTANYL OTHER: SEE Cristopher Gomez 2 INGREDI/039441405 Clinic Other (SNOMED CT) [place] Repository DRUG CLOPIDOGREL OTHER: SEE Cristopher Gomez 2 INGREDI/909682897 BISULFATE Clinic Other (SNOMED CT) [place] Repository Drug AWTYVZW-CTW-LTD INTOLERANCE [facility] 1 Class/919283500(S REDUCTASE Clinic Other NOMED CT) INHIBITORS [place] Repository DRUG/873486066(SN FENOFIBRATE INTOLERANCE Gomez [address]) MICRONIZED Clinic Other [place] Repository DRUG PREDNISONE Gomez 9 INGREDI/613033383 Clinic Other (SNOMED CT) [place] Repository Drug SALICYLATES Gomez 9 Class/548766019(S Clinic Other NOMED CT) [place] Repository Drug ANTIHISTAMINES Gomez 4 Class/609433942(S Clinic Other NOMED CT) [place] Repository DRUG CODEINE Gomez 4 INGREDI/121254029 Clinic Other (SNOMED CT) [place] Repository DRUG MORPHINE Gomez 4 INGREDI/926299876 Clinic Other (SNOMED CT) [place] Repository NG/648871649(SNOM ANTIHISTAMINES [facility] ED [facility]) [facility] Repository NG/381860837(SNOM SALICYLATES [facility] ED [facility]) [facility] System Repository NG/634650370(SNOM CODEINE [facility] ED CT) [facility] System Repository NG/000647883(SNOM FENTANYL [facility] ED CT) [facility] System Repository NG/995486798(SNOM MORPHINE [facility] ED CT) Health System Repository NG/900177517(SNOM CLOPIDOGREL [facility] ED CT) BISULFATE [facility] Repository NG/925486967(SNOM PREDNISONE [facility] ED CT) Health System Repository NG/127056799(SNOM QBJIQQM-GEQ-XYV [facility] ED CT) REDUCTASE Health System INHIBITORS Repository NG/661389799(SNOM FENOFIBRATE [facility] ED CT) MICRONIZED Health System Repository ENCOUNTERS ENCOUNTERS ADMIT/DISCHARGE ACCOUNT NUMBER ADMITTING ENCOUNTER LOCATION SOURCE CLASS 10/16/2018/10/16/20 [id number] Ambulatory [address] ding:CLSP Repository 09/25/2018/09/25/[id number] ding:PCURoom Repository : [id number]: 1 09/25/2018 [id number] Jose, Ambulatory BMSBuilding: [place] Hi BMS.[facility] Hospital Repository 09/25/2018 [id number] Ambulatory BMSBuilding: [facility] Hospital Repository 09/10/2018/09/10/20 [id number] Emergency [place] ding:ED Repository 09/05/2018 [id number] Ambulatory [facility] ding:CT Repository 09/02/2018 [id number] Ambulatory [facility] ding:LAB Repository 08/14/2018/08/14/20 [id number] Ambulatory BMSBuilding: [facility] 18 BMS.Critical access hospital Repository 08/12/2018/08/12/20 [id number] Emergency [place] [address] ding:ED Repository 08/07/2018 [id number] Ambulatory [facility] ding:CVS Repository 07/17/2018/07/17/20 [id number] Ambulatory BMSBuilding: [place] 18 BMS.[facility] Repository 07/16/2018 [id number] Ambulatory BMSBuilding: [place] BMS.[facility] Repository 06/28/2018 [id number] Ambulatory [facility] ding:MEDOUTP Repository 06/27/2018 [id number] Ambulatory [facility] Hospital ding:MEDOUTP Repository 06/26/2018 [id number] Ambulatory [facility] Hospital ding:MEDOUTP Repository 06/25/2018 [id number] Ambulatory [facility] Hospital ding:MEDOUTP Repository 06/24/2018 [id number] Ambulatory [facility] Hospital ding:MEDOUTP Repository 06/03/2018 [id number] Ambulatory [facility] Hospital ding:MFPLAB Repository 02/12/2018/02/13/20 [id number] [facility] [place] [facility] 02/01/2018/02/02/20 [id number] Emergency [place] [address] ding:ED Repository 01/28/2018 [id number] Ambulatory [facility] ding:MFPLAB Repository 01/16/2018 [id number] Ambulatory [facility] ding:MRI Repository 01/01/2018 [id number] Ambulatory [facility] ding:HPRAD Repository 01/01/2018/01/01/20 [id number] Ambulatory BMSBuilding: [address] Repository 12/21/2017/12/21/19 [id number] Ambulatory [address] Other [place] Repository 12/21/2017/12/21/19 [id number] Ambulatory [address] MEDICAL Repository [facility] ng:AGWM 12/03/2017 [id number] Ambulatory [facility] ding:CVS Repository PAYERS PAYERS ENCOUNTER GUARANTOR PAYER SUBSCRIBER SOURCE 10/16/2018 ANGÉLICA Ohara Primary ANGÉLICA R [place] [id number] Insurance:MYCARE CRSC PFEIFERDOB: Community [address] *IN [facility] [id number] Number: Repository [address]Ftz: 330 [id number] [phone] () Date:0224-52-22ZKDP CLAIMS [address] [place] [address]EU: 10/16/2018 Secondary NOT GIVENUNK [place] Insurance:SELF PAY [facility] Number: Effective Repository Date:2018-09-12 09/25/2018 ANGÉLICA Ohara Primary ANGÉLICA R [place] [id number] Insurance:MYCARE CRSC PFEIFERDOB: Community [address] *IN [facility] [id number] Number: Repository [address]Ems: 330 [id number] [phone] () Date:6499-93-49UCVM CLAIMS DEPTPO [address] [place] [address]BE: 09/25/2018 Secondary NOT GIVENUNK [place] Insurance:SELF PAY [facility] Number: Effective Repository Date:2018-09-25 09/25/2018 ANGÉLICA R Primary ANGÉLICA R [place] [id number] Insurance:MYCARE CRSC PFEIFERDOB: Community [address] *IN [address] Number: Repository [address]Zbp: 330 [id number] [phone] (HP) Date:8731-95-18VDDM [place]S [address] [address]JY: 09/25/2018 Secondary NOT GIVENUNK [place] Insurance:SELF PAY [facility] Number: Effective Repository Date:2018-09-25 09/25/2018 ANGÉLICA R Primary ANGÉLICA R [place] [id number] Insurance:MYCARE CRSC PFEIFERDOB: Community [address] *IN [address], [place] Number: Repository [address]Nwi: 330 [id number] [phone] (HP) Date:7454-38-66IVTM [place]S [address] [address]KM: 09/25/2018 Secondary NOT GIVENUNK [place] Insurance:SELF PAY [facility] Number: Effective Repository Date:2018-09-25 09/10/2018 ANGÉLICA R Primary ANGÉLICA R [place] [id number] Insurance:MYCARE CRSC PFEIFERDOB: Community [address] *IN [address], [place] Number: Repository [address]Ghi: 330 [id number] [phone] (HP) Date:0205-99-10HGBM CLAIMS [address] [address]KA: 09/10/2018 Secondary NOT GIVENUNK [place] Insurance:SELF PAY [facility] Number: Effective Repository Date:2018-09-10 09/05/2018 ANGÉLICA R Primary ANGÉLICA R [place] [id number] Insurance:MYCARE CRSC PFEIFERDOB: Community [address] *IN [facility] [id number] Number: Repository [address]Puo: 330 [id number] [phone] (HP) Date:0879-30-49OVDU CLAIMS [address], [place] [address]GA: 09/05/2018 Secondary NOT GIVENUNK [place] Insurance:SELF PAY [facility] Number: Effective Repository Date:2018-08-28 09/02/2018 ANGÉLICA R Primary ANGÉLICA R [place] [id number] Insurance:MYCARE CRSC PFEIFERDOB: Community [address] *IN [facility] [id number] [address] Number: Repository [id number]: 330 [id number] [phone] () Date:6837-54-29GURC CLAIMS [address] [place] [address]ES: 09/02/2018 Secondary NOT GIVENUNK [place] Insurance:SELF PAY [facility] Number: Effective Repository Date:2018-09-02 08/14/2018 ANGÉLICA R Primary ANGÉLICA R [place] [id number] Insurance:MYCARE CRSC PFEIFERDOB: Community [address] *IN [facility] [id number] Number: Repository [address]Mmc: 330 [id number] [phone] () Date:1111-34-82MJJL CLAIMS [address], [place] [address]RS: 08/14/2018 Secondary NOT GIVENUNK [place] Insurance:SELF PAY [facility] Number: Effective Repository Date:2018-08-14 08/12/2018 ANGÉLICA R Primary ANGÉLICA R Zack [id number] Insurance:MYCARE [employer]SC PFEIFERDOB: Community ASHLEY DRAPT *IN [facility] [id number] Number: Repository [id number]: 330 [id number] [phone] (HP) Date:7209-16-85DIPJ [place] [address] [address]HE: 08/12/2018 Secondary NOT GIVENUNK Z[place] Insurance:SELF PAY [facility] Number: Effective Repository Date:2018-08-12 08/07/2018 ANGÉLICA R Primary ANGÉLICA R Zack [id number] Insurance:MYCARE CRSC PFEIFERDOB: Community ASHLEY DRAPT *IN [facility] [id number] Number: Repository [id number]: 330 [id number] [phone] (HP) Date:4575-37-75LJGI CLAIMS [address] [address]SF: 08/07/2018 Secondary NOT GIVENUNK [place] Insurance:SELF PAY [facility] Number: Effective Repository Date:2018-07-19 07/17/2018 ANGÉLICA R Primary ANGÉLICA R [place] [id number] Insurance:MYCARE CRSC PFEIFERDOB: Community ASHLEY DRAPT *IN [facility] [id number] Number: Repository [id number]: 330 [id number] [phone] (HP) Date:7056-95-51MJGD [place]S [address] [address]ER: 07/17/2018 Secondary NOT GIVENUNK Zack Insurance:SELF PAY [facility] Number: Effective Repository Date:2017-10-22 07/16/2018 ANGÉLICA R Primary ANGÉLICA R Zack [id number] Insurance:MYCARE CRSC PFEIFERDOB: Community ASHLEY DRAPT *IN [facility] [id number] Number: Repository [id number]: 330 [id number] [phone] (HP) Date:6693-76-61KGKB [place]S [address] [address]TE: 07/16/2018 Secondary NOT GIVENUNK [place] Insurance:SELF PAY [facility] Number: Effective Repository Date:2018-07-16 06/28/2018 ANGÉLICA R Primary ANGÉLICA R [place] [id number] Insurance:MYCARE CRSC PFEIFERDOB: Community ASHLEY DRAPT *IN [facility] [id number] Number: Repository [id number]: 330 [id number] [phone] (HP) Date:5604-86-43ZGUE CLAIMS [address], [place] [address]ZO: 06/28/2018 Secondary NOT GIVENUNK [place] Insurance:SELF PAY [facility] Number: Effective Repository Date:2018-06-20 06/27/2018 ANGÉLICA R Primary ANGÉLICA R [place] [id number] Insurance:MYCARE CRSC PFEIFERDOB: Community ASHLEY DRAPT *IN [place] [id number] Number: Repository [id number]: 330 [id number] [phone] Date:6253-09-30ZMSH CLAIMS DEPT[address] [place] [address]XJ: 06/27/2018 Secondary NOT GIVENUNK [place] Insurance:SELF PAY [facility] Number: Effective Repository Date:2018-06-20 06/26/2018 ANGÉLICA R Primary ANGÉLICA R [place] [id number] Insurance:MYCARE CRSC PFEIFERDOB: Community ASHLEY DRAPT *IN [place] [id number] Number: Repository [id number]: 330 [id number] [phone] (HP) Date:8544-93-14PNOV CLAIMS [address] [address]WV: 06/26/2018 Secondary NOT GIVENUNK Zack Insurance:SELF PAY [facility] Number: Effective Repository Date:2018-06-20 06/25/2018 ANGÉLICA R Primary ANGÉLICA R [place] [id number] Insurance:MYCARE CRSC PFEIFERDOB: Community ASHLEY DRAPT *IN [facility] [id number] Number: Repository [id number]: 330 [id number] [phone] (HP) Date:2453-92-79FROO CLAIMS [address], [place] [address]NR: 06/25/2018 Secondary NOT GIVENUNK [place] Insurance:SELF PAY [facility] Number: Effective Repository Date:2018-06-20 06/24/2018 ANGÉLICA R Primary ANGÉLICA R [place] [id number] Insurance:MYCARE CRSC PFEIFERDOB: Community ASHLEY DRAPT *IN [facility] [id number] Number: Repository [id number]: 330 [id number] [phone] () Date:2395-20-47KONV CLAIMS [address]PO [address] [place] [address]LG: 06/24/2018 Secondary NOT GIVENUNK [place] Insurance:SELF PAY [facility] Number: Effective Repository Date:2018-06-20 06/03/2018 ANGÉLICA R Primary ANGÉLICA R Zack [id number] Insurance:MYCARE CRSC PFEIFERDOB: Community ASHLEY DRAPT *IN [facility] [id number] Number: Repository [id number]: 330 [id number] [phone] () Date:4168-16-01AIJX CLAIMS DE[address]PO [address] [place] [address]IG: 06/03/2018 Secondary NOT GIVENUNK [place] Insurance:SELF PAY [facility] Number: Effective Repository Date:2018-06-03 02/12/2018 ANGÉLICA R Primary ANGÉLICA R [place] [id number] Insurance:MYCARE CRSC PFEIFERDOB: Community ASHLEY DRAPT *IN [facility] [id number] Number: Repository [id number]: 330) [id number] [phone] (HP) Date:5364-42-07RTZX [place]S [address] [address]KL: 02/12/2018 Secondary NOT GIVENUNK [place] Insurance:SELF PAY [facility] Number: Effective Repository Date:2018-02-12 02/01/2018 ANGÉLICA R Primary ANGÉLICA R [place] [id number] Insurance:MYCARE CRSC PFEIFERDOB: Community ASHLEY DRAPT *IN [facility] [id number] Number: Repository [address]Vxr: 330 [id number] [phone] (HP) Date:8821-48-40ZRJT [place]S [address] [address]GU: 02/01/2018 Secondary NOT GIVENUNK [place] Insurance:SELF PAY [facility] Number: Effective Repository Date:2018-02-01 01/28/2018 ANGÉLICA R Primary ANGÉLICA R [place] [id number] Insurance:MYCARE CRSC PFEIFERDOB: Community ASHLEY DRAPT *IN [address] Number: Repository [id number]: (330 [id number] [phone] (HP) Date:9444-73-29LHFB [place]S [address] [address]IP: 01/28/2018 Secondary NOT GIVENUNK [place] Insurance:SELF PAY [facility] Number: Effective Repository Date:2018-01-28 01/16/2018 ANGÉLICA R Primary ANGÉLICA R [place] [id number] Insurance:MYCARE CRSC PFEIFERDOB: Community ASHLEY DRAPT *IN [address] Number: Repository [id number]: 330 [id number] [phone] (HP) Date:2764-51-48VLPZ [place]S [address] [address]NJ: 01/16/2018 Secondary NOT GIVENUNK [place] Insurance:SELF PAY [facility] Number: Effective Repository Date:2018-01-10 01/01/2018 ANGÉLICA R Primary ANGÉLICA R Zack [id number] Insurance:MYCARE CRSC PFEIFERDOB: Community ASHLEY DRAPT *IN [facility] [id number] Number: Repository [id number]: 330 [id number] [phone] (HP) Date:5736-40-22ALMR CLAIMS [address] [place] [address]SW: 01/01/2018 Secondary NOT GIVENUNK [place] Insurance:SELF PAY [facility] Number: Effective Repository Date:2018-01-01 01/01/2018 ANGÉLICA R Primary ANGÉLICA R Zack [id number] Insurance:MYCARE CRSC PFEIFERDOB: Community ASHLEY DRAPT *IN [facility] [id number] Number: Repository [id number]: 330 [id number] [phone] (HP) Date:0733-74-28PTYJ CLAIMS [address] [place] [address]WA: 01/01/2018 Secondary NOT GIVENUNK [place] Insurance:SELF PAY [facility] Number: Effective Repository Date:2017-10-30 12/21/2017 ANGÉLICA R Primary ANGÉLICA R [facility] PFEIFERDOB: Insurance:MYCARE PFEIFERDOB: [facility] [id number] Repository ASHLEY DRUNIT MEDICAREPolicy [address], [place] Number: [id number]: 330 [id number] [phone] (HP) Date: 12/21/2017 Secondary ANGÉLICA R [facility] Insurance:MYCARE PFEIFERDOB: [facility] [employer] [id number] [facility] [id number] Date: 12/03/2017 Angélica R Primary Angélica R [place] [id number] Insurance:MYCARE CRSC PfeiferDOB: [facility] Ashley DrLee *IN [facility] [id number] Number: Repository [id number]: [phone] [id number] [phone] () Date:0725-31-56WDKZ CLAIMS [address] [place] [address]TZ: 12/03/2017 Secondary NOT GIVENUNK [place] Insurance:SELF PAY [facility] Number: Effective Repository Date:2017-11-21
== END 2018-10-16 15:46 | disposition home or self-care (01) ==
PROVIDERS: Family Provider Family Medicine; PCP Family Medicine; Referring Provider Surgery Vascular Surgery; Visit Provider Surgery Vascular Surgery
DX: T82.858A Stenosis of other vascular prosthetic devices, implants and grafts, initial encounter (principal); I70.213 Atherosclerosis of native arteries of extremities with intermittent claudication, bilateral legs; I70.1 Atherosclerosis of renal artery; G35 Multiple sclerosis; I10 Essential (primary) hypertension; E07.9 Disorder of thyroid, unspecified; D59.1 Other autoimmune hemolytic anemias; I51.9 Heart disease, unspecified; M19.90 Unspecified osteoarthritis, unspecified site; F17.200 Nicotine dependence, unspecified, uncomplicated; Z86.73 Personal history of transient ischemic attack (TIA), and cerebral infarction without residual deficits
CPT/HCPCS: 36200; 36245; 36246; 37220; 75625; 75716; 76937; 99152; 99153; J7040; Q9967; C1725; C1769; C1894; J2405

== ENCOUNTER 2019-01-14 12:20 | Emergency (ER) | payer MEDICARE, SELFPAY ==
[2019-01-14 12:21] VITALS: BP 143/95; PULSE 92; RESP 18; TEMP 36.6; O2SAT 99; BMI 21.4
--- NOTE | 2019-01-14 12:46 | ED.RN ---
PT VERY ANGRY AT THIS RN FOR TAKING A PT BACK BEFORE HER. ATTEMPTED TO EXPLAIN TO PT.
--- NOTE | 2019-01-14 13:42 | ED.DCSUM_ITS ---
- ER Visit Summary Date of Service: 01/14/19 Chief Complaint: Chronic pain History of Present Illness: The patient is a 63 F who states that she chronically has pain in her right hip. She describes it as a burning pain. She has had shingles and sciatica. She takes an oxycodone twice a day as prescribed by her primary care physician Dr. Benton. She states it seems to be worse during the night and today. She also notes a history of carotid vascular disease and multiple sclerosis. The pain is not new it seems to be worse today. She denies any neurologic deficits. Patient use a use a wheeled walker Physical Examination: Afebrile vital signs are stable I do not see any rash over the left hip buttock region. There is no neurologic deficit. CT sheet for complete details Emergency Department Course and Treatment: Patient received a dose of Dilaudid Toradol and Kenalog. She will be discharged home. Follow-up with primary care Impression: 1. Chronic right hip pain This note was generated with [employer] dictation software. It may contain incorrect words, spelling, and punctuation that were not noted in review of the chart prior to signing ED Disposition - Plan for ED Patient: Disposition: Home or Assisted Living Instructions: ED Chronic Pain Management Referrals: Daron Benton MD [Primary Care Provider] - Keep Angela appointment
[2019-01-14] MEDS: Ketorolac 30 MG/ML Syringe IM (14:07)
[2019-01-14] MEDS: Triamcinolone Acetonide 40 MG/ML Vial IM (14:07)
[2019-01-14] MEDS: HYDROmorphone 1 MG/ML Syringe IM (14:08)
[2019-01-14 14:40] VITALS: BP 138/83; PULSE 60; RESP 14
== END 2019-01-14 14:41 | disposition home or self-care (01) ==
PROVIDERS: Emergency Provider Emergency Medicine; Family Provider Family Medicine; PCP Family Medicine
DX: M25.551 Pain in right hip (principal); G89.29 Other chronic pain; G35 Multiple sclerosis; M54.9 Dorsalgia, unspecified; Z79.891 Long term (current) use of opiate analgesic; Z79.02 Long term (current) use of antithrombotics/antiplatelets; Z79.899 Other long term (current) drug therapy
CPT/HCPCS: 96372; 99282

== ENCOUNTER 2019-03-13 09:48 | Emergency (ER) | payer MEDICARE, SELFPAY ==
[2019-03-13 09:50] VITALS: BP 113/58; PULSE 73; RESP 18; TEMP 36.4; O2SAT 98; BMI 21.7
--- NOTE | 2019-03-13 10:14 | ED.DCSUM_ITS ---
- ER Visit Summary Date of Service: 03/13/19 Chief Complaint: Rash History of Present Illness: The patient is a 63 F who was started on amitriptyline on March 09. She noted a rash to her face yesterday. She was seen in urgent care and started on Benadryl. Last dose of amitriptyline was taken the evening of March 11. Patient presents to the ED today because rash is still present. She denies itching. She states her skin feels slightly tight. Physical Examination: Vital signs unremarkable. Patient sitting upright in bed no acute distress. Head neck examination reveals a faint flat pink rash around her eyes. Eyes themselves are not involved. There is no edema. No blister lesions. Mucous membranes are unremarkable. Heart is regular rate and rhythm. Lung sounds are clear. Test Results: [] Emergency Department Course and Treatment: Half-life of amitriptyline is up to 26 hours. I advised her it may take 3 to 4 days before the drug is completely out of her system. Patient is unable to tolerate oral steroids secondary to gastritis. She will be given IM Kenalog and will continue her Benadryl. Treatment Plan: [] Disposition: Discharge Impression: Allergic drug reaction This note was generated with [employer] dictation software. It may contain incorrect words, spelling, and punctuation that were not noted in review of the chart prior to signing ED Disposition - Plan for ED Patient: Disposition: Home or Assisted Living Instructions: ED Drug React Allergic Referrals: Daron Benton MD [Primary Care Provider] - Kristopher Main MD [STAFF PHYSICIAN] - 3-5 Days
[2019-03-13] MEDS: Triamcinolone Acetonide 40 MG/ML Vial IM (10:49)
[2019-03-13 11:10] VITALS: BP 132/64; PULSE 60
== END 2019-03-13 11:11 | disposition home or self-care (01) ==
LOC: ED 10:21
PROVIDERS: Emergency Provider Emergency Medicine; Family Provider Family Medicine; PCP Family Medicine
DX: L27.1 Localized skin eruption due to drugs and medicaments taken internally (principal); T43.015A Adverse effect of tricyclic antidepressants, initial encounter; Y92.9 Unspecified place or not applicable; I25.10 Atherosclerotic heart disease of native coronary artery without angina pectoris; I10 Essential (primary) hypertension; L40.50 Arthropathic psoriasis, unspecified; I73.9 Peripheral vascular disease, unspecified; Z72.0 Tobacco use; Z79.02 Long term (current) use of antithrombotics/antiplatelets; Z79.899 Other long term (current) drug therapy; Z86.73 Personal history of transient ischemic attack (TIA), and cerebral infarction without residual deficits
CPT/HCPCS: 96372; 99282

== ENCOUNTER 2019-04-11 15:19 | Emergency (ER) | payer MEDICARE, SELFPAY ==
[2019-04-11 15:20] VITALS: BP 132/73; PULSE 79; RESP 16; TEMP 36.6; O2SAT 98; BMI 21.9
--- NOTE | 2019-04-11 15:39 | ED.VISSUMM ---
- ER Visit Summary Date of Service: 04/11/19 Chief Complaint: Back pain History of Present Illness: The patient is a 63 F who presents with back pain that is been getting worse since last night. Patient has a history of chronic back pain and sciatica. Patient states her pain medications at home have not been helping. Patient denies any new trauma or injury. Patient states the pain is over the lower lumbar area and radiates to both lower extremities. Patient describes the pain as burning. Patient states the pain is worse with sitting and laying. Patient denies any bowel or bladder changes. Patient denies any saddle anesthesia. Patient does admit to some tingling and paresthesias in both lower extremities. Physical Examination: Vital signs are stable. Patient is afebrile. Patient is in no acute distress. Musculoskeletal exam reveals tenderness over the lower lumbar spine and paraspinal muscles bilaterally. There is also tenderness over the sciatic notch bilaterally and gluteal areas bilaterally. There is no bony crepitance or step-off. There is no edema or ecchymosis noted. Range of motion was limited in all motion secondary to pain. There are no sensory deficits noted. Emergency Department Course and Treatment: Patient was given injections of Dilaudid, Toradol, and Kenalog. Patient states she has had these in the past which have helped. Patient was instructed to continue her pain medications as previously prescribed. Patient was instructed to follow-up with her primary care physician in 3 to 5 days. Patient understood and was agreeable with the plan. All questions were answered. Disposition: Discharge home Impression: Sciatica This note was generated with [employer] dictation software. It may contain incorrect words, spelling, and punctuation that were not noted in review of the chart prior to signing ED Disposition - Plan for ED Patient: Disposition: Home or Assisted Living Diagnosis: Bilateral sciatica Instructions: ED Sciatica Referrals: Daron Benton MD [Primary Care Provider] - 3-5 Days
--- NOTE | 2019-04-11 15:45 | ED.DCSUM_ITS ---
- ER Visit Summary Date of Service: 04/11/19 Chief Complaint: Back pain History of Present Illness: The patient is a 63 F who presents with back pain that is been getting worse since last night. Patient has a history of chronic back pain and sciatica. Patient states her pain medications at home have not b een helping. Patient denies any new trauma or injury. Patient states the pain is over the lower lumbar area and radiates to both lower extremities. Patient describes the pain as burning. Patient states the pain is worse with sitting and laying. Patient denies any bowel or bladder changes. Patient denies any saddle anesthesia. Patient does admit to some tingling and paresthesias in both lower extremities. Physical Examination: Vital signs are stable. Patient is afebrile. Patient is in no acute distress. Musculoskeletal exam reveals tenderness over the lower lumbar spine and paraspinal muscles bilaterally. There is also tenderness over the sciatic notch bilaterally and gluteal areas bilaterally. There is no bony crepitance or step-off. There is no edema or ecchymosis noted. Range of motion was limited in all motion secondary to pain. There are no sensory deficits noted. Emergency Department Course and Treatment: Patient was given injections of Dilaudid, Toradol, and Kenalog. Patient states she has had these in the past which have helped. Patient was instructed to continue her pain medications as previously prescribed. Patient was instructed to follow-up with her primary care physician in 3 to 5 days. Patient understood and was agreeable with the plan. All questions were answered. Disposition: Discharge home Impression: Sciatica This note was generated with [employer] dictation software. It may contain incorrect words, spelling, and punctuation that were not noted in review of the chart prior to signing ED Disposition - Plan for ED Patient: Disposition: Home or Assisted Living Diagnosis: Bilateral sciatica Instructions: ED Sciatica Referrals: Daron Benton MD [Primary Care Provider] - 3-5 Days
[2019-04-11] MEDS: HYDROmorphone 1 MG/ML Syringe IM (16:09)
[2019-04-11] MEDS: Triamcinolone Acetonide 40 MG/ML Vial IM (16:09)
[2019-04-11] MEDS: Ketorolac 30 MG/ML Syringe IM (16:11)
[2019-04-11 16:37] VITALS: BP 142/78; PULSE 87; RESP 14; O2SAT 99
== END 2019-04-11 16:38 | disposition home or self-care (01) ==
PROVIDERS: Emergency Provider Emergency Medicine; Family Provider Family Medicine; PCP Family Medicine
DX: M54.41 Lumbago with sciatica, right side (principal); M54.42 Lumbago with sciatica, left side; G89.29 Other chronic pain; M19.90 Unspecified osteoarthritis, unspecified site; Z72.0 Tobacco use; Z79.02 Long term (current) use of antithrombotics/antiplatelets; Z79.899 Other long term (current) drug therapy
CPT/HCPCS: 96372; 99282

== ENCOUNTER 2019-05-20 20:50 | Observation (INO) | payer MEDICARE, SELFPAY ==
[2019-05-20] VITALS (9 sets, daily range): BP systolic 128–179; BP diastolic 68–104; PULSE 61–115; RESP 10–20; TEMP 36.6–36.7; O2SAT 96–98; BMI 40.4
--- NOTE | 2019-05-20 21:09 | EKG12_ITS ---
Test Reason : Blood Pressure : / mmHG Vent. Rate : 080 BPM Atrial Rate : 080 BPM P-R Int : 156 ms QRS Dur : 082 ms QT Int : 410 ms P-R-T Axes : 061 036 067 degrees QTc Int : 472 ms Normal sinus rhythm Possible Left atrial enlargement Nonspecific ST abnormality Abnormal ECG Confirmed by CONCHA ZHU ([id number]), metropolitan editor SELAM ABRRETO ([id number]) on 05/26/2019 1:02:04 PM Referred By: BORIS Confirmed By:CONCHA ZHU
--- NOTE | 2019-05-20 21:11 | CT_ITS ---
STUDY: CT BRAIN WITHOUT CONTRAST REASON FOR EXAM: Female, 63 years old. Visual disturbance. History of carotid artery bypass. Aneurysm coil repair, [place]. RADIATION DOSAGE (If Supplied By Facility): CTDIvol = ( 44.99 ) mGy, DLP = ( 779.24 ) mGycm TECHNIQUE: Transaxial CT imaging of the brain was performed without administration of intravenous contrast material. Individualized dose optimization techniques were used for this CT. COMPARISON: No relevant priors. FINDINGS: Normal soft tissue structures. Normal calvarium. Radiodensity with marked streak artifact is noted in the region of the anterior communicating artery consistent with reported history of endovascular coil. Normal size ventricles and extra-axial spaces for the patient's age. Normal white matter tracts of the cerebral hemispheres. Normal basal ganglia and thalami. Normal brainstem. Normal cerebellum. There is no intracranial hemorrhage. There are no findings of an acute ischemic infarction. Normal visualized paranasal sinuses. CT/Brain/Head without Contrast IMPRESSION: Endovascular coil, otherwise negative unenhanced CT scan of the brain. Electronically Signed: Yovana Rogers MD at 21:59 EDT Tel , Service support ,
[2019-05-20 21:20] LABS: Absolute Lymphocyte Count 1.42 X10^3/ul (0.83-4.51); Absolute Neutrophil Count 5.1 X10^3/uL (2.0-7.7); Basophil# 0.03 X10^3/uL; Basophil% 0.4 % (0-1); Eosinophil# 0.11 X10^3/uL; Eosinophils% 1.4 % (0-5); Hematocrit 48.5 % (37-47); Hemoglobin 16.7 g/dl (12.0-15.0); Lymphocyte # 1.42 X10^3/ul (4.0); Lymphocyte % 18.6 % (19-41); Mean Corp Hgb Conc 34.4 g/gl (32-36); Mean Platelet Vol. 9.5 fl (6.2-12.0); Monocyte% 11.8 % (0-10); Neutrophil # 5.12 X10^3/uL (2.7-7.7); Neutrophil % 66.9 % (47-70); Platelet Count 190 K/mm3 (150-450); RBC Distribution Width CV 14.4 % (11.6-14.6); RBC Distribution Width SD 47.2 fl (35.1-43.9); Red Blood Count 5.39 M/mm3 (4.2-5.4); White Blood Count 7.7 K/mm3 (4.4-11.0)
[2019-05-20 21:21] LABS: POSITIVE COUNT NO; POSITIVE DIFFERENTIAL NO; POSITIVE MORPHOLOGY NO
[2019-05-20 21:29] LABS: International Normalized Ratio 0.9; Partial Thromboplast Time 26.9 Seconds (24.1-36.2); Prothrombin Time (Protime)PT. 12.2 SECONDS (11.7-14.9)
--- NOTE | 2019-05-20 21:30 | RAD_ITS ---
STUDY: X-RAY CHEST REASON FOR EXAM: Female, 63 years old. Weakness. TECHNIQUE: PA and lateral COMPARISON: 09/25/2018. FINDINGS: The lungs are clear and expanded. There is no demonstrated pleural abnormality. Normal size heart. Normal mediastinum and david. Normal visualized pulmonary arteries. Normal visualized aortic arch and descending thoracic aorta. There is a mild thoracic dextroscoliosis. Soft tissues and bony structures are otherwise unremarkable. RAD/Chest PA and Lateral IMPRESSION: Mild dextroscoliosis, otherwise negative x-ray examination of the chest. Electronically Signed: Yovana Rogers MD at 21:51 EDT Tel , Service support ,
[2019-05-20 21:31] LABS: Bedside Glucose 127 mg/dL (70-110)
[2019-05-20 21:34] LABS: Anion Gap 8 (5-15); BUN 19 mg/dL (7-18); BUN/Creat Ratio 21.6 RATIO (10-20); Calcium,Total 9.5 mg/dL (8.5-10.1); Chloride 103 mmol/L (98-107); Creatinine, Serum 0.88 mg/dL (0.55-1.02); EST Glomerular Filtration Rate 69 mL/min (>60); Est Glom Filt Rate - Afr Amer 83 mL/min (>60); Estimated Creatinine Clearance 62.81 ml/min; Glucose 132 mg/dL (74-106); Potassium 3.7 mmol/L (3.5-5.1); Sodium Level 137 mmol/L (136-145)
--- NOTE | 2019-05-20 22:45 | ED.RN ---
Verbal order from Dr Grant received to d/c NIH's.
--- NOTE | 2019-05-20 22:47 | PCM.HP.STD ---
Problem List (1) Vision disturbance Status: Acute (2) Atypical chest pain Status: Inactive History of Present Illness Date of Admission: 05/20/19 Chief Complaint: vision disturbance The patient is a 63 year old F with a significant history of tobacco abuse; multiple sclerosis; brain aneurysm status post coiling; TIA who presented to the emergency department with left eye vision disturbance. She describes her vision disturbance as distortion of light of the left eye. Symptoms started about 1 hour prior to presentation. At the emergency department she reported improvement in his symptoms. Previously when she had the same symptoms she was diagnosed with either multiple sclerosis or TIA. Also she reports increased weakness in the bilateral legs. At baseline patient uses a walker. Past Medical History Past Medical History (Chronic Problems): Chronic Problems (Last Reviewed 05/21/19 @ 04:18 by Kai Mosley MD) Carotid bypass surgery (Chronic) Brain aneurysm coil surgery (Chronic) right iliac stent (Chronic) Chronic pain syndrome (Chronic) Chest pain (Chronic) Angina pectoris (Chronic) CAD (coronary artery disease) (Chronic) PVD (peripheral vascular disease) (Chronic) HLD (hyperlipidemia) (Chronic) Medical History: Medical History (Last Reviewed 05/21/19 @ 04:18 by Kai Mosley MD) Chronic pain syndrome (Chronic) Chest pain (Chronic) R07.9 Angina pectoris (Chronic) I20.9 CAD (coronary artery disease) (Chronic) I25.10 PVD (peripheral vascular disease) (Chronic) I73.9 HLD (hyperlipidemia) (Chronic) E78.5 Fatty liver K76.0 GERD (gastroesophageal reflux disease) K21.9 Goiter E04.9 History of transient ischemic attack (TIA) Z86.73 Hypertension I10 Multiple sclerosis G35 Osteoarthritis M19.90 Osteoporosis M81.0 Psoriasis L40.9 Psoriatic arthritis L40.50 Thrombocytopenia D69.6 History of hysterectomy Z90.710 Allergies colestipol [From Colestid] Allergy (Mild, Verified 05/20/19 21:49) unknown pregabalin [From Lyrica] Allergy (Mild, Verified 05/20/19 21:49) Hives amitriptyline Allergy (Verified 05/20/19 21:49) Rash temazepam [From Restoril] Adverse Reaction (Mild, Verified 05/20/19 21:49) Nausea/Vom/Diarrhea Antihistamines - Alkylamine Adverse Reaction (Verified 05/20/19 21:49) Nausea/Vom/Diarrhea Antihistamines - Ethanolamine Adverse Reaction (Verified 05/20/19 21:49) Nausea/Vom/Diarrhea Antihistamines - Ethylenediamine Adverse Reaction (Verified 05/20/19 21:49) Nausea/Vom/Diarrhea Antihistamines - Piperazine Adverse Reaction (Verified 05/20/19 21:49) Nausea/Vom/Diarrhea Antihistamines - Piperidine Adverse Reaction (Verified 05/20/19 21:49) Nausea/Vom/Diarrhea aspirin Adverse Reaction (Verified 05/20/19 21:49) I'M ON BLOOD THINNERS codeine Adverse Reaction (Verified 05/20/19 21:49) Nausea morphine Adverse Reaction (Verified 05/20/19 21:49) Nausea Zaaekuf-Hur-Npo Reductase Inhibitor Adverse Reaction (Verified 05/20/19 21:49) Nausea STEROIDS BY MOUTH Adverse Reaction (Uncoded 05/20/19 21:49) Upset Stomach Home Medications: Ambulatory Orders Medication Instructions Recorded Cholecalciferol (Vitamin D3) 5,000 unit PO DAILY 12/16/13 [Vitamin D3] Oxycodone [Oxyir] 5 mg PO BID 02/01/18 baclofen 10 mg tablet 20 mg PO Q6H tab 07/16/18 gabapentin 800 mg tablet 800 mg PO TID tab 07/16/18 levothyroxine 75 mcg tablet 50 mcg PO DAILY tab 07/17/18 Magnesium Oxide [Magnesium] 400 mg PO DAILY 08/12/18 clopidogrel 75 mg tablet 75 mg PO QODAY #90 tab 05/16/19 Glatiramer Acetate 40 mg SQ MOWEFR 05/20/19 Surgical History: Surgical History (Last Reviewed 05/21/19 @ 04:18 by Kai Mosley MD) History of partial thyroidectomy (Resolved) Onset Date: ~11/30/05 Z98.890 left thyroid lobectomy with isthmusectomy Brain aneurysm I67.1 s/p coiling January 2014 History of bilateral carotid endarterectomy Onset Date: ~2012 Z98.890 History of section Z98.891 X2 History of hemorrhoidectomy Z98.890 Fracture of right lower leg S82.91XA due to fall H/O hemorrhoidectomy Z98.890 H/O: Z98.891 x2 History of left breast biopsy Z98.890 S/P hysterectomy Z90.710 S/P insertion of iliac artery stent Z95.828 right common 08/25/2015 S/P thyroidectomy E89.0 left with isthmusectomy Surgical History: - - Carotid endarterectomy, partial thyroidectomy, , hysterectomy, cholecystectomy Smoking Status: Current every day smoker - *Family History Maternal Family History: Family History (Last Reviewed 05/20/19 @ 23:54 by Kai Mosley MD) Mother Cancer CAD (coronary artery disease) Brain tumor Grandfather CVA (cerebral vascular accident) Father CAD (coronary artery disease) Ruptured abdominal aortic aneurysm (AAA) Sister Brain aneurysm History Items: No pertinent history Paternal Family History: Family History (Last Reviewed 05/20/19 @ 23:54 by Kai Mosley MD) Mother Cancer CAD (coronary artery disease) Brain tumor Grandfather CVA (cerebral vascular accident) Father CAD (coronary artery disease) Ruptured abdominal aortic aneurysm (AAA) Sister Brain aneurysm History Items: Heart Disease Review of Systems Constitutional: Reports: Weakness. Denies: Chills, Fever, Weight Change HEENT: Denies: Head Aches, Sinus Congestion, Sinus Drainage Cardiovascular: Denies: Chest Pain, Palpitations Respiratory: Denies: Cough, Shortness of breath at rest, Sputum production Gastrointestinal: Denies: Abdominal Pain, Nausea, Vomiting Genitourinary: Denies: Dysuria Musculoskeletal: Denies: Joint Pain, Joint Tenderness Skin: Denies: Rash, Wounds Neurological: Reports: - - vision disturbance.. Denies: Focal weakness, Numbness, Tingling Psychiatric: Denies: Anxiety, Depression, Homicidal Ideations, Suicidal Ideations Hematologic/ Lymphatic: Denies: Easy Bruising, Easy Bleeding VTE Information - Inpt Only VTE Present on Admission: No VTE Mechan Device Prophylaxis: None VTE Pharm Prophylaxis ordered?: Yes Patient Problems: Active and Suspected Problems (Last Reviewed 05/21/19 @ 04:18 by Kai Mosley MD) Vision disturbance (Acute) - Physical Exam General: Alert, Oriented x3, Cooperative HEENT: Atraumatic, PERRLA, EOMI, Normocephalic Neck: Supple, No JVD, Negative Carotid Bruits Lungs: Clear to auscultation, Normal air movement Cardiovascular: Regular rate, No murmurs Abdomen: Bowel Sounds Present, Soft, Non Tender Extremities: No edema, Capillary Refill Less than 3 Seconds Skin: No rashes, No breakdown Musculoskeletal: No Tenderness to Palpation of Joints or Extremities Neurological: Cranial nerves II-XII grossly intact, Deep Tendon Reflexes 2+/4 and Symmetrical, Motor Exam 5/5 strength throughout, Muscle tone normal, - - No dysmetria Psych/Mental Status: Normal Affect, Appropriate Vital Signs Temp Pulse Resp BP Pulse Ox 98.0 F 62 15 154/79 H 97 05/20/19 20:53 05/20/19 22:30 05/20/19 22:30 05/20/19 22:30 05/20/19 22:30 Oxygen Delivery Method Room Air Weight: 117 kg Body Mass Index (BMI) 40.4 Finger Stick Blood Glucose 127 Laboratory Tests Past 24 Hrs 05/20/19 05/20/19 05/20/19 21:05 21:05 21:05 WBC 7.7 RBC 5.39 Hgb 16.7 H Hct 48.5 H MCV 90.0 MCH 31.0 MCHC 34.4 RDW 14.4 RDW Differential 47.2 H Plt Count 190 MPV 9.5 Immature Gran % (Auto) 0.900 Neut % (Auto) 66.9 Lymph % (Auto) 18.6 L Mccormick % (Auto) 11.8 H Eos % (Auto) 1.4 Baso % (Auto) 0.4 Absolute Neuts (auto) 5.1 Absolute Lymphs (auto) 1.42 Total Counted Not Reportable PT 12.2 INR 0.9 APTT 26.9 Sodium 137 Potassium 3.7 Chloride 103 Carbon Dioxide 26.0 Anion Gap 8 BUN 19 H Creatinine 0.88 Estim Creat Clear Calc 62.81 Est GFR (MDRD) Af Amer 83 Est GFR (MDRD) Non-Af 69 BUN/Creatinine Ratio 21.6 H Glucose 132 H Calcium 9.5 POC Glucose 05/20/19 21:26 POC Glucose 127 H Assessment/Plan All Active Problems (Last Reviewed 05/21/19 @ 04:18 by Kai Mosley MD) Vision disturbance (Acute) History of partial thyroidectomy (Resolved ~11/30/05) The patient is a 63 year old F with a significant history of tobacco abuse; multiple sclerosis; brain aneurysm status post coiling; TIA who presented to the emergency department with left eye vision disturbance. Vision disturbance Patient has improved. NINDS NIH Scale was 0 CT of the head showed endovascular coil, otherwise negative unenhanced CT scan of the brain. CT head was independently reviewed. I agree with radiologist interpretation -Check Hba1c, Lipid level Physical therapy, occupational therapy and speech therapy to work with patient. N.p.o. until bedside swallow eval. Permissive hypertension. Control blood pressure with labetalol for systolic blood pressure of more than 220 or diastolic blood pressure of more than 120. -Permissive HTN for 24 hrs. Echocardiogram ordered. The patient received Solu-Medrol for multiple sclerosis flare. Unlikely to be multiple sclerosis flare since he reported improvement vision symptoms. However she reports increased weakness in the legs. If patient worsens consider some Solu-Medrol. MRI/MRA head and neck per stroke protocol ordered. Reportedly the coil in her head is compatible with MRI. She has had previous MRI after placement of the coil. Tobacco abuse Counseled Declined nicotine patch Bilateral carotid artery stenosis status post grafts Plavix continued Chronic pain Gabapentin and oxycodone continued Hypothyroidism Synthroid continued Multiple sclerosis Glatiramer Acetate and vitamin D continued Baclofen continued DVT prophylaxis Subcutaneous Lovenox. Code Visit OBSV E&M: 23679 Initial observation care L3
--- NOTE | 2019-05-20 22:59 | ED.VISSUMM ---
- ER Visit Summary Date of Service: 05/20/19 Chief Complaint: Visual changes History of Present Illness: The patient is a 63 F presenting with visual changes. She describes visual disturbance as areas of limited vision from left eye. Patient states that this started around 7:30 PM, 2 hours prior to arrival. She states her symptoms are now resolved. She states she has had similar symptoms with both MS flares and TIAs. She denies eye pain, nausea, vomiting. She complains of generalized weakness. She denies speech changes. Denies numbness or tingling. Denies confusion. Denies fever or other complaints. Physical Examination: Vitals are stable. Patient is afebrile. Alert no acute distress. HEENT exam is unremarkable. Neck is supple. Lungs are clear and equal bilaterally. Heart is regular rate and rhythm. Abdomen is soft nontender nondistended. Extremities are unremarkable. Skin is warm and dry. No focal neurologic deficit. NIH 0 Remainder of exam is unremarkable. Emergency Department Course and Treatment: CBC, chemistries unremarkable. Chest x-ray shows no acute process. CT head shows endovascular coil, otherwise negative unenhanced CT scan of the brain. Patient's symptoms have improved. Discussed with the hospitalist for observation. Disposition: Observation Impression: TIA This note was generated with [employer] dictation software. It may contain incorrect words, spelling, and punctuation that were not noted in review of the chart prior to signing
--- NOTE | 2019-05-20 23:42 | ECHOD_ITS ---
Reason For Study: TIA/CVA Procedure This was a 2D Doppler, Color Flow transthoracic echocardiogram. The study was technically difficult. Due to deep respirations. Exam performed portable in ED. Left Ventricle Normal size and thickness. The estimated ejection fraction is 65 %. Stage 1 diastolic dysfunction. No regional wall motion abnormalities noted. Right Ventricle Normal size and thickness. Normal systolic function. Atria The left atrium is mildly enlarged. Normal right atrium. Normal atrial septum. Mitral Valve The mitral valve is structurally normal. No prolapse or stenosis seen. Tricuspid Valve Normal tricuspid valve. Trivial tricuspid valve insufficiency. Right ventricular systolic pressure estimated to be 25 mmHg. Aortic Valve Normal aortic valve. Trisinus/trileaflet aortic valve. Pulmonic Valve Normal pulmonic valve. Trivial pulmonic valve insufficiency. Great Vessels Normal aortic root. Normal arch. Normal inferior vena cava. Inferior vena cava collapse with sniff. Pericardium/Pleural No pericardial effusion. MMode/2D Measurements & Calculations LVIDd: 3.9 cm IVSd: 1.3 cm Ao root diam: 2.7 cm LVIDs: 2.8 cm LVPWd: 1.1 cm RVDd: 2.7 cm FS: 27.4 % LAV(MOD-bp): 70.6 ml LA A4 area: 22.7 cm2 LA dimension(2D): 3.5 cm LAV(MOD-bp) Indexed: 41.6 ml/m2 LAV(MOD-sp2): 68.9 ml LAV(MOD-sp4): 72.1 ml Doppler Measurements & Calculations MV E max sony: 123.7 cm/sec Lat Peak E' Sony: 5.0 cm/sec Med Peak E' Sony: 8.6 cm/sec MV A max sony: 153.5 cm/sec E/E' lat: 24.9 E/E' med: 14.4 MV E/A: 0.81 MV V2 max: 153.5 cm/sec Ao V2 max: 129.4 cm/sec LV V1 max: 121.0 cm/sec MV max P.4 mmHg Ao max P.7 mmHg LV V1 max P.9 mmHg MV V2 mean: 84.8 cm/sec MV mean P.2 mmHg MV V2 VTI: 54.6 cm PA V2 max: 78.8 cm/sec TR max sony: 223.2 cm/sec TR max P.9 mmHg Interpretation Summary The estimated ejection fraction is 65 %. Stage 1 diastolic dysfunction. The left atrium is mildly enlarged. Trivial tricuspid valve insufficiency. Right ventricular systolic pressure estimated to be 25 mmHg. Compared to echo report dated 02/27/2014, no appreciable changes noted. Ordering Physician: Kai Mosley Referring Physician: Daron Benton Performed By: Laney Pond RDCS, RVT
[2019-05-21] VITALS (7 sets, daily range): BP systolic 120–137; BP diastolic 72–81; PULSE 49–66; RESP 16; TEMP 36.4–36.6; O2SAT 96–97; BMI 21.4
[2019-05-21] MEDS: Baclofen 10 MG Tablet 20 MG PO ×3 (00:18→11:58)
[2019-05-21] MEDS: oxyCODONE 5 MG Tablet PO ×2 (00:18→07:45)
--- NOTE | 2019-05-21 01:04 | MRI_ITS ---
STUDY: MRI BRAIN WITHOUT CONTRAST REASON FOR EXAM: Female, 63 years old. Stroke, left vision loss TECHNIQUE: Standardized multiplanar fat and water weighted pulse sequences were obtained. COMPARISON: CT 05/20/2019, MRI 05/08/2013 FINDINGS: Normal size of the ventricles and extra-axial spaces for the patient's age. Normal white matter tracts of the supratentorial brain. There is no evidence for recent intracranial ischemia or other cause of cytotoxic edema on diffusion weighted imaging (DWI). Normal T2* images of the brain without demonstrated susceptibility artifact. There is no demonstrated hemosiderin stain. Metallic susceptibility artifact due to embolization coils near the expected location of the anterior commuting artery likely consistent with aneurysm coiling. Normal bilateral basal ganglia. Normal thalami. There is no extra-axial fluid accumulation. Normal flow voids within the major intracranial circulation suggesting patency by spin echo criteria. Normal sella turcica, pituitary gland, infundibular stalk, optic chiasm and hypothalamus. Normal tectal plate and pineal gland. Normal midbrain, danielle and medulla. Normal cerebellum. Normal basal cisterns. Normal bilateral temporal bones. Normal bilateral internal auditory canals. There are bilateral ocular lens implants with otherwise normal intraorbital contents. Normal visualized paranasal sinuses. Normal calvarium and skull base. Normal visualized soft tissue structures. Normal visualized upper cervical spine. MRI/Brain without Contrast IMPRESSION: No acute abnormality. Electronically Signed: Elijah Pollack MD at 11:47 EDT Tel , Service support ,
--- NOTE | 2019-05-21 01:05 | MRI_ITS ---
STUDY: MRA OF THE HEAD WITHOUT CONTRAST REASON FOR EXAM: Female, 63 years old. Stroke, left vision loss TECHNIQUE: 3-D kfkp-co-xcijgs (TOF) imaging was performed with MIPs. The study was performed unenhanced. COMPARISON: And 2913 FINDINGS: Normal bilateral petrous carotid arteries. Normal right cavernous carotid artery with a normal supraclinoid bifurcation. Normal left cavernous carotid artery with a normal supraclinoid bifurcation. There is non-visualization of the right A1 segment of the anterior cerebral arteries consistent with either aplastic development or an occlusion. Normal left A1 segments of the anterior cerebral artery. Normal intact anterior communicating artery (ACOM). Normal bilateral A2 segments of the anterior cerebral arteries. Normal right M1 and M2 segments of the middle cerebral arteries, with a normal M1 bifurcation. Normal left M1 and M2 segments of the middle cerebral arteries, with a normal M1 bifurcation. There is a persistent origin of the right posterior cerebral artery with absence of the P1 segment of the right posterior cerebral artery. There is a persistent origin of the left posterior cerebral artery with absence of the P1 segment of the left posterior cerebral artery. Normal bilateral vertebral arteries. Normal basilar artery with a normal basilar bifurcation. The visualized bilateral superior cerebellar (SCA) arteries are normal. Normal bilateral P1, P2 and visualized P3 segments of the posterior cerebral arteries. There is no demonstrated aneurysm of the [place]. There is no major vessel occlusion or hemodynamically significant stenosis. There is no demonstrated abnormality of the visualized brain. MRI/MRA Head ONLY without Contrast IMPRESSION: No acute abnormality. 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 Electronically Signed: Elijah Pollack MD at 11:50 EDT Tel , Service support ,
[2019-05-21 01:22] LABS: Hemoglobin A1c 5.4 % (4.2-6.3)
[2019-05-21] MEDS: Acetaminophen 325 MG Tablet 650 MG PO (04:06)
--- NOTE | 2019-05-21 04:17 | MRI_ITS ---
STUDY: MRA NECK WITH AND WITHOUT CONTRAST REASON FOR EXAM: Female, 63 years old. Stroke, left vision loss TECHNIQUE: 3-D jmtz-mx-piafok (TOF) imaging was performed in an 1.5 T MRI scanner. 13 IV Dotarem was administered for the contrast enhanced images. COMPARISON: CTA 09/05/2018 FINDINGS: RIGHT CAROTID ARTERIES: Occluded proximal right common carotid artery. Left to right carotid carotid bypass which is intact. Right carotid bifurcation is obscured by motion artifact from the graft but is believed to be widely patent. Normal origin of the right internal carotid (ICA) artery without a hemodynamically significant stenosis. Normal visualized cervical portion of the right internal carotid artery. Normal origin of the right external carotid artery (ECA). LEFT CAROTID ARTERIES: Normal left common carotid artery (CCA). Normal left common carotid bulb. Normal origin of the left internal carotid (ICA) artery without a hemodynamically significant stenosis. Normal visualized cervical portion of the left internal carotid artery. Normal origin of the left external carotid artery (ECA). VERTEBRAL ARTERIES: Normal antegrade flow within the bilateral vertebral artery without a hemodynamically significant stenosis. MRI/MRA Neck WITH and W/O Contrast IMPRESSION: 1. Occluded right common carotid artery with a left to right carotid carotid bypass graft which is patent. The carotid bifurcations appear widely patent bilaterally. Both internal carotid arteries appear widely patent. 2. Patent vertebral arteries bilaterally. Electronically Signed: Elijah Pollack MD at 11:53 EDT Tel , Service support ,
[2019-05-21] MEDS: Levothyroxine 50 MCG Tablet PO (05:36)
[2019-05-21] MEDS: Gabapentin 800 MG Tablet PO ×2 (05:36→11:58)
[2019-05-21 06:15] LABS: Cholesterol 203 mg/dL (200); High Density Lipoprotein 47 mg/dL; Triglycerides 121 mg/dL; Very Low Density Lipoprotein 24 mg/dL (5-40)
[2019-05-21] MEDS: Magnesium Oxide 400 MG Tablet PO (07:45)
[2019-05-21] MEDS: Enoxaparin 40 MG/0.4 ML Syringe SC (07:46)
[2019-05-21] MEDS: GLATIRAMER ACETATE 40 MG/ML SYRINGE SQ (11:58)
--- NOTE | 2019-05-21 14:19 | CASEMGMT ---
RN CM Note. Attempted to speak with pt re RN CM Assessment. Pt is tearful and painful, stating she has requested pain medication for her sciatica. Is refusing to speak re: home needs and wishes to speak with physician re: her pain and dc. is in room with pt. RN DEON let nurse know, and per nurse- physician is aware pt would like to see her. Karen KELSEY RN ACM
--- NOTE | 2019-05-21 14:33 | DCINST_ITS ---
- Discharge Diagnoses Current Active Problems: Current Active and Chronic Problems (Last Reviewed 05/21/19 @ 04:18 by Kai Mosely MD) Vision disturbance (Acute) You will use the following diet at home:: Other - Resume previous diet Your liquids should be the consistency of: Regular/Thin Discharge Activity: Return to Normal Activity Call your doctor if you observe: Fever of 101 or Higher, Inability to urinate, Inability to have a bowel movement, Shortness of breath, Dizziness, Fainting spells, Swelling in the ankles, Uncontrolled pain Allergies/Adverse Reactions: Allergies colestipol [From Colestid] Allergy (Mild, Verified 05/20/19 21:49) unknown pregabalin [From Lyrica] Allergy (Mild, Verified 05/20/19 21:49) Hives amitriptyline Allergy (Verified 05/20/19 21:49) Rash temazepam [From Restoril] Adverse Reaction (Mild, Verified 05/20/19 21:49) Nausea/Vom/Diarrhea Antihistamines - Alkylamine Adverse Reaction (Verified 05/20/19 21:49) Nausea/Vom/Diarrhea Antihistamines - Ethanolamine Adverse Reaction (Verified 05/20/19 21:49) Nausea/Vom/Diarrhea Antihistamines - Ethylenediamine Adverse Reaction (Verified 05/20/19 21:49) Nausea/Vom/Diarrhea Antihistamines - Piperazine Adverse Reaction (Verified 05/20/19 21:49) Nausea/Vom/Diarrhea Antihistamines - Piperidine Adverse Reaction (Verified 05/20/19 21:49) Nausea/Vom/Diarrhea aspirin Adverse Reaction (Verified 05/20/19 21:49) I'M ON BLOOD THINNERS codeine Adverse Reaction (Verified 05/20/19 21:49) Nausea morphine Adverse Reaction (Verified 05/20/19 21:49) Nausea Bdakpju-Pha-Keb Reductase Inhibitor Adverse Reaction (Verified 05/20/19 21:49) Nausea STEROIDS BY MOUTH Adverse Reaction (Uncoded 05/20/19 21:49) Upset Stomach Medications to take at Discharge Cholecalciferol (Vitamin D3) [Vitamin D3] 5,000 unit PO DAILY 12/16/13 Oxycodone [Oxyir] 5 mg PO BID 02/01/18 baclofen 10 mg tablet 20 mg PO Q6H tab 07/16/18 gabapentin 800 mg tablet 800 mg PO TID tab 07/16/18 levothyroxine 75 mcg tablet 50 mcg PO DAILY tab 07/17/18 Magnesium Oxide [Magnesium] 400 mg PO DAILY 08/12/18 clopidogrel 75 mg tablet 75 mg PO QODAY #90 tab 05/16/19 Glatiramer Acetate 40 mg SQ MOWEFR 05/20/19 Primary Care Physician: Daron Benton MD [Primary Care Provider] - Please follow up with your Primary Care Physician in: 3-5 days Test Results: Test results from this visit will be discussed in further detail at your follow- up appointment, if applicable. Please Follow Up With: Kristopher Main MD When: as previously scheduled Proposed Discharge Date: 05/21/19
[2019-05-21] MEDS: Ondansetron 4 MG/2 ML Vial IV (14:36)
[2019-05-21] MEDS: HYDROmorphone 0.5 MG/0.5 ML SYRINGE IV (14:36)
--- NOTE | 2019-05-21 14:36 | DS.PCM_ITS ---
Discharge Date and Diagnosis Date of Admission: 05/20/19 Date of Discharge: 05/21/19 - Primary Discharge Diagnosis Active and Suspected Problems (Last Reviewed 05/21/19 @ 04:18 by Kai Mosley MD) Vision disturbance (Acute) - resolved, possibly due to TIA acute exacerbation chronic pain - due to lying on the MRI table for a prolonged period of time - Secondary Discharge Diagnosis Chronic Problems (Last Reviewed 05/21/19 @ 04:18 by Kai Mosley MD) Carotid bypass surgery (Chronic) Brain aneurysm coil surgery (Chronic) right iliac stent (Chronic) Chronic pain syndrome (Chronic) Chest pain (Chronic) Angina pectoris (Chronic) CAD (coronary artery disease) (Chronic) PVD (peripheral vascular disease) (Chronic) HLD (hyperlipidemia) (Chronic) - not adequately controlled, LDL is 132 and she has known CAD, PVD and hx of TIA Hospital Course and Treatment Imaging Results: Clinical Impression(s) from Imaging Studies Brain CT 05/20/19 21:11 IMPRESSION: Endovascular coil, otherwise negative unenhanced CT scan of the brain. Electronically Signed: Yovana Rogers MD at 21:59 EDT Tel , Service support , Chest X-Ray 05/20/19 21:30 IMPRESSION: Mild dextroscoliosis, otherwise negative x-ray examination of the chest. Electronically Signed: Yovana Rogers MD at 21:51 EDT Tel , Service support , Brain MRI 05/21/19 01:04 IMPRESSION: No acute abnormality. Electronically Signed: Elijah Pollack MD at 11:47 EDT Tel , Service support , Head MRA 05/21/19 01:05 IMPRESSION: No acute abnormality. 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 Electronically Signed: Elijah Pollack MD at 11:50 EDT Tel , Service support , Neck MRA 05/21/19 04:17 IMPRESSION: 1. Occluded right common carotid artery with a left to right carotid carotid bypass graft which is patent. The carotid bifurcations appear widely patent bilaterally. Both internal carotid arteries appear widely patent. 2. Patent vertebral arteries bilaterally. Electronically Signed: Elijah Pollack MD at 11:53 EDT Tel , Service support , None Operations: None Procedures: 2-D Echocardiogram - EF 65%, stage I diastolic dysfunction, mild left atrial enlargement, right ventricular systolic pressure estimated to be 25, trivial tricuspid insufficiency Summary of Care Provided: The patient is a 63 year old F with a past medical history of multiple sclerosis, coronary artery disease, CABG, peripheral vascular disease, carotid stenosis with history of carotid bypass surgery, chronic pain syndrome and cerebral aneurysm (status post coiling) who presented to the emergency department at [facility] on 05/20/2019 complaining of distortion of light with the left eye. Symptoms started approximately 1 hour prior to presenting to the emergency department and when she was seen in the emergency department she stated the vision had already started to improve. She also reported increased weakness in her legs. She uses a walker at baseline. Brain CT at admission showed the endovascular coil but otherwise was unremarkable. She was admitted to a monitored bed on the progressive care unit and brain MRI and MRA of the head and neck was ordered for the following day. Echocardiogram was also ordered and showed an EF of 65% with stage I diastolic dysfunction. The left atrium was mildly enlarged and there was no significant valvular heart disease. The right ventricular systolic pressure was estimated at 25. MRI of the brain showed no acute abnormality. MRA of the head showed no acute abnormality. MRA of the neck showed an occluded right common carotid artery with a left to right carotid carotid bypass graft which was patent. Both internal carotid arteries appeared widely patent. The vertebral arteries were patent bilaterally. She was discharged home and will follow up with Dr. Daron Benton in the office in 3-5 days. Alert and oriented x3 No JVD, no carotid bruits Lungs-clear to auscultation Heart-regular rate and rhythm, no gallop, no rub, no murmur Abdomen-all sounds present, soft, nontender, nondistended Extremities no edema Neurological-cranial nerves II through XII are grossly intact, motor strength was 4-5 over 5 throughout, no dysmetria This note was generated with [employer] dictation software. It may contain incorrect words, spelling, and punctuation that were not noted in checking the note before signing. - Physical Exam Vital Signs Temp Pulse Resp BP Pulse Ox 98 F 60 16 120/72 96 05/21/19 11:30 05/21/19 11:30 05/21/19 11:30 05/21/19 11:30 05/21/19 11:30 Oxygen Delivery Method Room Air Weight: 132 lb 7.965 oz Body Mass Index (BMI) 21.4 Finger Stick Blood Glucose 127 Intake and Output for Last 24 Hours 05/19/19 05/20/19 05/21/19 23:59 23:59 23:59 Intake Total 480 / 480 Balance 480 / 480 Laboratory Tests Past 24 Hrs 05/20/19 05/20/19 05/20/19 21:05 21:05 21:05 WBC 7.7 RBC 5.39 Hgb 16.7 H Hct 48.5 H MCV 90.0 MCH 31.0 MCHC 34.4 RDW 14.4 RDW Differential 47.2 H Plt Count 190 MPV 9.5 Immature Gran % (Auto) 0.900 Neut % (Auto) 66.9 Lymph % (Auto) 18.6 L Knott % (Auto) 11.8 H Eos % (Auto) 1.4 Baso % (Auto) 0.4 Absolute Neuts (auto) 5.1 Absolute Lymphs (auto) 1.42 Total Counted Not Reportable PT 12.2 INR 0.9 APTT 26.9 Sodium 137 Potassium 3.7 Chloride 103 Carbon Dioxide 26.0 Anion Gap 8 BUN 19 H Creatinine 0.88 Estim Creat Clear Calc 62.81 Est GFR (MDRD) Af Amer 83 Est GFR (MDRD) Non-Af 69 BUN/Creatinine Ratio 21.6 H Glucose 132 H Hemoglobin A1c Calcium 9.5 Triglycerides Cholesterol LDL Cholesterol VLDL Cholesterol HDL Cholesterol 05/20/19 05/21/19 21:05 05:20 WBC RBC Hgb Hct MCV MCH MCHC RDW RDW Differential Plt Count MPV Immature Gran % (Auto) Neut % (Auto) Lymph % (Auto) Knott % (Auto) Eos % (Auto) Baso % (Auto) Absolute Neuts (auto) Absolute Lymphs (auto) Total Counted PT INR APTT Sodium Potassium Chloride Carbon Dioxide Anion Gap BUN Creatinine Estim Creat Clear Calc Est GFR (MDRD) Af Amer Est GFR (MDRD) Non-Af BUN/Creatinine Ratio Glucose Hemoglobin A1c 5.4 Calcium Triglycerides 121 Cholesterol 203 H LDL Cholesterol 132 H VLDL Cholesterol 24 HDL Cholesterol 47 POC Glucose 05/20/19 21:26 POC Glucose 127 H Discharge Activity: Return to Normal Activity Call your doctor if you observe: Fever of 101 or Higher, Inability to urinate, Inability to have a bowel movement, Shortness of breath, Dizziness, Fainting spells, Swelling in the ankles, Uncontrolled pain Home Medications: Medications to take at Discharge Cholecalciferol (Vitamin D3) [Vitamin D3] 5,000 unit PO DAILY 12/16/13 Oxycodone [Oxyir] 5 mg PO BID 02/01/18 baclofen 10 mg tablet 20 mg PO Q6H tab 07/16/18 gabapentin 800 mg tablet 800 mg PO TID tab 07/16/18 levothyroxine 75 mcg tablet 50 mcg PO DAILY tab 07/17/18 Magnesium Oxide [Magnesium] 400 mg PO DAILY 08/12/18 clopidogrel 75 mg tablet 75 mg PO QODAY #90 tab 05/16/19 Glatiramer Acetate 40 mg SQ MOWEFR 05/20/19 Primary Care Physician: Daron Benton MD [Primary Care Provider] - Please follow up with your Primary Care Physician in: 3-5 days Please Follow Up With: Kristopher Main MD When: as previously scheduled Disposition: Home Minutes spent on discharge:: 30 Patient Condition:: Stable Medical Necessity - Tobacco Use Smoking Status: Never smoker Tobacco Use: Non-smoker Meaningful Use Info Meaningful Use Diagnoses (Choose all that apply): None applicable Code Visit OBSV E&M: 67353 Observation care discharge
== END 2019-05-21 14:59 | disposition home or self-care (01) ==
LOC: ED 21:24 → PCU 23:14
PROVIDERS: Admitting Provider Hospitalist; Emergency Provider Emergency Medicine; Family Provider Family Medicine; PCP Family Medicine; Visit Provider Internal Medicine
DX: R07.89 Other chest pain (principal); H53.9 Unspecified visual disturbance; G35 Multiple sclerosis; E78.5 Hyperlipidemia, unspecified; M19.90 Unspecified osteoarthritis, unspecified site; K21.9 Gastro-esophageal reflux disease without esophagitis; K76.0 Fatty (change of) liver, not elsewhere classified; I10 Essential (primary) hypertension; L40.50 Arthropathic psoriasis, unspecified; E03.9 Hypothyroidism, unspecified; R29.700 NIHSS score 0; I25.10 Atherosclerotic heart disease of native coronary artery without angina pectoris; I73.9 Peripheral vascular disease, unspecified; G89.4 Chronic pain syndrome; Z79.899 Other long term (current) drug therapy; Z79.02 Long term (current) use of antithrombotics/antiplatelets; Z87.891 Personal history of nicotine dependence; Z86.73 Personal history of transient ischemic attack (TIA), and cerebral infarction without residual deficits
CPT/HCPCS: 36415; 70450; 70544; 70549; 70551; 71046; 80048; 80061; 82962; 83036; 85025; 85610; 85730; 93005; 93306; 96372; 96374; 96375; 97802; 99218; 99285; 99406; A9575; A4216; G0378; J2405

== ENCOUNTER → 2019-06-24 08:44 | Outpatient (CLI) | payer MEDICARE, SELFPAY ==
[2019-05-21 00:58] VITALS: BMI 21.4
--- NOTE | 2019-06-24 08:47 | AAVD_ITS ---
Reason For Study: Atherosclerosis Aorta Measurements Aorta Doppler Measurements Proximal aorta measures1.28 x 1.25cm. in cross- Peak systolic flow velocities within the proximal sectional axis. aorta measure 45.7 cm/sec. Proximal aorta measures1.46cm. in longitudinal Peak systolic flow velocities within the mid aorta axis. measure 56.7 cm/sec. Mid aorta measures1.07 x 1.10cm. in cross- Peak systolic flow velocities within the distal sectional axis. aorta measure 91.6 cm/sec. Mid aorta measures1.10cm. in longitudinal axis. Distal aorta measures0.84 x 0.93cm. in cross- sectional axis. Distal aorta measures0.90cm. in longitudinal axis. Left Iliac Artery Left iliac artery measures 0.50 x 0.53 cm. in the cross-sectional axis. Left iliac artery measures 0.49 cm. in the longitudinal axis. Peak systolic velocity in the left iliac artery measures 128.6 cm/sec. Right Iliac Artery Right iliac artery measures 0.47 x 0.49 cm. in the cross-sectional axis. Right iliac artery measures 0.52 cm. in the longitudinal axis. Peak systolic velocity in the right iliac artery measures 205.7 cm/sec. Procedure Aorta IVC Iliac vasculature or bypass grafts 37889. Exam performed in department. Interpretation Summary 1. No significant aortoiliac occlussive disease. Ordering Physician: Kam Nava Referring Physician: Daron Benton MD Performed By: Tena Davidson RVT
--- NOTE | 2019-06-24 08:47 | ART_ITS ---
Reason For Study: Atherosclerosis Procedure A bilateral lower extremity continuous wave Doppler with analog waveform analysis and ankle brachial indexes. Left Segmental Pressures Left brachial= 121mmHg. Left posterior tibial artery = 117mmHg. Left dorsalis pedis artery = 93mmHg. Left digit = 90 mmHg. The left dorsalis pedis waveforms are biphasic. The left posterior tibial artery waveforms are biphasic. Right Segmental Pressures Right brachial= 116mmHg. Right posterior tibial artery = 127mmHg. Right dorsalis pedis artery = 119mmHg. Right digit = 112 mmHg. The right dorsalis pedis waveforms are triphasic. The right posterior tibial artery waveforms are triphasic. Indices The right ankle brachial index by the dorsalis pedis is 0.98. The right ankle brachial index by the posterior tibial artery is 1.05. The right digital-brachial index is 0.93. The left ankle brachial index by the dorsalis pedis is 0.77. The left ankle brachial index by the posterior tibial artery is 0.97. The left digital-brachial index is 0.74. Interpretation Summary 1. right normal study at rest with JAY 1.05 and triphasic flow. 2. Left normal JAY at rest 0.97 but biphasic flow noted. Ordering Physician: Kam Nava Referring Physician: Daron Benton MD Performed By: Tena Davidson RVT
--- NOTE | 2019-06-24 08:52 | RDU_ITS ---
Reason For Study: Atherosclerosis Right Renal Artery Left Renal Artery Right renal artery ostium Left renal artery ostium 366.5/19 103.4/17.5 RSV/EDV. PSV/EDV. Right renal artery proximal Left renal artery proximal PSV/EDV 103.4/21.2 PSV/EDV. 484.8/89.8 . Right renal artery mid 149/34 Left renal artery mid 386.7/93.9 PSV/EDV. PSV/EDV . Right renal artery distal Left renal artery distal 61.9/18.9 157.2/36.9 PSV/EDV. PSV/EDV. Right RAR 2.53. Left RAR 7.79. Right Renal Parenchyma Left Renal Parenchyma Upper Pole Medula 58.1/13.3 Left upper pole medulla 27.4/9 PSV/EDV. PSV/EDV . Right upper pole medulla EDR 0.23 . Left upper pole medulla EDR 0.33 . Right upper pole medulla R.I. Left upper pole medulla R.I. 0.67 . 0.77 . UP Cortex 20/7.1 PSV/EDV. Upper Robin Cortx 26.1/7.9 PSV/EDV. Left upper pole cortex EDR 0.36 . Right upper pole cortex EDR 0.30 . Left upper pole cortex R.I. 0.64 . Right upper pole cortex R.I. 70 . Left lower Pole medulla 29.8/5.9 Right lower Pole medulla 30.7/9.7 PSV/EDV . PSV/EDV . Left lower pole medulla EDR 0.20 . Right lower pole medulla EDR 0.32 . Left lower pole medulla R.I. 0.80 . Right lower pole medulla R.I. Lower Pole Cortx 17.6/4.1 PSV/EDV. 0.68 . Left lower pole cortex EDR 0.23 . Lower Pole Cortex 26.1/6.9 PSV/EDV. Left lower pole cortex R.I. 0.77 . Right lower pole cortex EDR 0.26 . Left Renal Hilar Right lower pole cortex R.I. 0.73 . LT Hilar avg 37.2/10.8 PSV/EDV . Right Renal Hilar Left hilar acceleration time 30 Right Hilar avg 43.5/12.4 PSV/EDV. m/sec. Right hilar acceleration time 20 Left Renal Dimensions m/sec. Left kidney size 9.61 cm . Right Renal Dimensions Left cortical dimension 1.46 cm . Right kidney size 10.02 cm . Right cortical dimension 1.35 cm . Aorta Proximal abdominal aorta 1.98 x 1.96 cm . Proximal abdominal aorta peak systolic velocity is 62.2 cm/sec . Distal abdominal aorta 0.75 x 0.80 cm . Distal abdominal aorta peak systolic velocity is 136.2 cm/sec . Interpretation Summary 1. Right renal < 60% 2. Left renal over 60% stenosis. Ordering Physician: Kam Nava Referring Physician: Daron Benton MD Performed By: Tena Davidson RVT
== END ==
PROVIDERS: Family Provider Family Medicine; PCP Family Medicine; Referring Provider Surgery Vascular Surgery; Visit Provider Surgery Vascular Surgery
DX: I70.213 Atherosclerosis of native arteries of extremities with intermittent claudication, bilateral legs (principal); I70.1 Atherosclerosis of renal artery; I65.23 Occlusion and stenosis of bilateral carotid arteries; I74.09 Other arterial embolism and thrombosis of abdominal aorta; G35 Multiple sclerosis; I25.10 Atherosclerotic heart disease of native coronary artery without angina pectoris; E07.9 Disorder of thyroid, unspecified; F17.200 Nicotine dependence, unspecified, uncomplicated; Z86.73 Personal history of transient ischemic attack (TIA), and cerebral infarction without residual deficits
CPT/HCPCS: 93922; 93975; 93978

== ENCOUNTER 2019-07-16 09:16 | Day surgery (SDC) | payer MEDICARE, SELFPAY ==
[2019-05-21 00:58] VITALS: BMI 21.4
[2019-07-15 09:30] VITALS: BMI 22.7
[2019-07-16 09:29] LABS: Hemoglobin 15.6 g/dL (12.0-15.0); Mean Corp Hgb Conc 32.5 g/dL (32-36); Mean Corpuscular Hgb 29.9 pg (27.0-32.0); Mean Corpuscular Volume 92.1 fL (81-99); Mean Platelet Vol. 9.2 fl (6.2-12.0); Platelet Count 180 K/mm3 (150-450); RBC Distribution Width CV 13.4 % (11.6-14.6); RBC Distribution Width SD 45.7 fl (35.1-43.9); Red Blood Count 5.21 M/mm3 (4.2-5.4)
[2019-07-16 09:41] LABS: Albumin, Serum 3.5 g/dL (3.2-5.0); BUN 16 mg/dL (7-18); BUN/Creat Ratio 18.4 RATIO (10-20); Calcium,Total 8.8 mg/dL (8.5-10.1); Chloride 109 mmol/L (98-107); Creatinine, Serum 0.87 mg/dL (0.55-1.02); EST Glomerular Filtration Rate 69 mL/min (>60); Est Glom Filt Rate - Afr Amer 84 mL/min (>60); Estimated Creatinine Clearance 58.01 ml/min; Glucose 99 mg/dL (74-106); Potassium 4.2 mmol/L (3.5-5.1); Sodium Level 141 mmol/L (136-145)
--- NOTE | 2019-07-16 11:30 | PCM.OPRPT ---
Problem List (1) PVD (peripheral vascular disease) Status: Chronic Report of Operation Date of Procedure: 07/16/19 Pre-Operative Diagnosis: Subclavian stenosis Post-Operative Diagnosis: The same Surgery/Procedure Performed:: 1. Ultrasound-guided access retrograde right common femoral artery. 2. Arch aortogram with selective left upper extremity angiogram. 3. Drug-coated balloon angioplasty of the left subclavian artery with a 6 x 60 drug-coated balloon. 4. Closure with Mynx Type of Anesthesia:: Sedation,Conscious Description of Procedure: Patient brought to the [employer]. And with appropriate timeout consent. Underwent sedation. Prepped and draped in a sterile fashion. We did ultrasound-guided access retrograde right common femoral artery. Put a Glidewire up and a 5 English sheath. Put a KMP into the arch over the wire and did not arch aortogram. Showed the occlusion essentially of the innominate good flow through the left carotid and through the bypass and it appeared to be a moderate severe stenosis in the left subclavian. Try to get the KMP into their having trouble tracking. We then placed a angled glide catheter into their Glidewire down and brought in a 6 English sheath. We did a selective left subclavian angiogram showing 2 areas of moderate stenosis with good flow distal to this. We gave 5000 units of heparin. We ballooned through both areas with a 6 x 60 drug-coated balloon for over 2 and half minutes. Completion was markedly improved with much better flow. We then removed out the sheath deployed a minx with good hemostasis brought to recovery then in stable condition. This 64-year-old female underwent moderate sedation given by Dr. Kam Nava. She has moderate EKG blood pressure and pulse ox for over the 30 minutes of the procedure. See the MR for the complete record.
--- NOTE | 2019-07-21 10:39 | PCM.HP.BLA ---
Problem List (1) CAD (coronary artery disease) Status: Chronic Qualifiers: (2) Carotid bypass surgery Status: Chronic (3) Chest pain Status: Chronic (4) HLD (hyperlipidemia) Status: Chronic Qualifiers: (5) PVD (peripheral vascular disease) Status: Chronic (6) Atypical chest pain Status: Inactive History and Physical Date of Admission: 07/16/19
== END 2019-07-16 15:54 | disposition home or self-care (01) ==
PROVIDERS: Family Provider Family Medicine; PCP Family Medicine; Referring Provider Surgery Vascular Surgery; Visit Provider Surgery Vascular Surgery
DX: I77.1 Stricture of artery (principal); I70.8 Atherosclerosis of other arteries; I73.9 Peripheral vascular disease, unspecified; G35 Multiple sclerosis; I10 Essential (primary) hypertension; E07.9 Disorder of thyroid, unspecified; M19.90 Unspecified osteoarthritis, unspecified site; I65.23 Occlusion and stenosis of bilateral carotid arteries; F17.200 Nicotine dependence, unspecified, uncomplicated; Z79.02 Long term (current) use of antithrombotics/antiplatelets; Z79.899 Other long term (current) drug therapy; Z86.73 Personal history of transient ischemic attack (TIA), and cerebral infarction without residual deficits
CPT/HCPCS: 36415; 37246; 75710; 76937; 80069; 85027; 99152; 99153; C1760; C2623; J7040; Q9967; C1725; C1769; C1894

== ENCOUNTER 2019-09-01 11:23 | Emergency (ER) | payer MEDICARE, SELFPAY ==
[2019-08-05 10:39] VITALS: BMI 23.2
[2019-09-01 11:24] VITALS: BP 162/77; PULSE 71; RESP 16; TEMP 36.6; O2SAT 96; BMI 21.1
--- NOTE | 2019-09-01 11:41 | RAD_ITS ---
STUDY: X-RAY - RIGHT SHOULDER REASON FOR EXAM: Female, 64 years old. Pain. No known injury. TECHNIQUE: 4 view(s) of the shoulder. COMPARISON: None. FINDINGS: Normal glenohumeral articulation. There is degenerative arthrosis of the acromioclavicular joint without inferior osseous spur formation. Normal acromion. Normal humeral head and visualized proximal humerus. The soft tissue structures are unremarkable. Normal visualized pulmonary apex. RAD/Shoulder min 2 Views IMPRESSION: Degenerative changes at the acromioclavicular joint. Electronically Signed: Jovon Freitas, at 13:05 EDT , Service support ,
--- NOTE | 2019-09-01 11:45 | ED.VISSUMM ---
- ER Visit Summary Date of Service: 09/01/19 Chief Complaint: Right shoulder pain History of Present Illness: The patient is a 64 F who complains of right shoulder pain. Started last night and got worse today. Patient has a history of MS and chronic pain. She is allowed to take 2 oxycodone at home per day which is not helping. She denies any falls or trauma. She did sleep on her right hand side last night which made the pain worse. It is diffuse over the shoulder. She has some numbness of the right hand. No previous surgeries to this area. Physical Examination: Vital signs reviewed. Right shoulder exam reveals diffuse tenderness around the shoulder including the musculature and bony areas. No deformities. Her sensation is equal bilaterally. She has no cervical spine tenderness. Test Results: Right shoulder x-rays show some degenerative changes Emergency Department Course and Treatment: Patient was given Norflex to help with her pain. She does have muscular pain as well. I will give her some prednisone to take for 5 days at home. To see if this will help with her pain. She will need follow-up with her PCP. Treatment Plan: [] Disposition: Discharge Impression: Right shoulder pain This note was generated with [employer] dictation software. It may contain incorrect words, spelling, and punctuation that were not noted in review of the chart prior to signing ED Disposition - Plan for ED Patient: Referrals: Daron Benton MD [Primary Care Provider] -
[2019-09-01] MEDS: Orphenadrine 60 MG/2 ML Ampul IM (12:30)
--- NOTE | 2019-09-01 13:17 | ED.DEP ---
ED Disposition - Plan for ED Patient: Disposition: Home or Assisted Living Instructions: SHOULDER PAIN (Uncertain Cause) Prescriptions: Prednisone [Deltasone] 40 mg PO DAILY #10 tab Prescription Printed Referrals: Daron Benton MD [Primary Care Provider] -
== END 2019-09-01 13:57 | disposition home or self-care (01) ==
PROVIDERS: Emergency Provider Emergency Medicine; Family Provider Family Medicine; PCP Family Medicine
DX: M25.511 Pain in right shoulder (principal); G89.29 Other chronic pain; R20.0 Anesthesia of skin; Z79.899 Other long term (current) drug therapy
CPT/HCPCS: 73030; 96372; 99282

== ENCOUNTER → 2019-10-22 16:05 | Outpatient (CLI) | payer MEDICARE, SELFPAY ==
[2019-10-22 17:38] LABS: Absolute Neutrophil Count 4.8 X10^3/uL (2.0-7.7); Basophil# 0.05 X10^3/uL; Basophil% 0.7 % (0-1); Eosinophil# 0.13 X10^3/uL; Eosinophils% 1.9 % (0-5); Hematocrit 49.3 % (37-47); Hemoglobin 16.2 g/dL (12.0-15.0); Lymphocyte % 18.6 % (19-41); Mean Corp Hgb Conc 32.9 g/dL (32-36); Mean Corpuscular Hgb 29.1 pg (27.0-32.0); Mean Corpuscular Volume 88.7 fL (81-99); Mean Platelet Vol. 10.3 fl (6.2-12.0); Monocyte# 0.67 X10^3/uL; Monocyte% 9.6 % (0-10); NRBC Flagged by Analyzer 0 % (0-5); Neutrophil % 68.6 % (47-70); Platelet Count 217 K/mm3 (150-450); RBC Distribution Width CV 14.1 % (11.6-14.6); RBC Distribution Width SD 45.8 fl (35.1-43.9); Red Blood Count 5.56 M/mm3 (4.2-5.4)
[2019-10-22 18:01] LABS: AST(SGOT) 16 U/L (15-37); Alanine Aminotransfer ALT/SGPT 21 U/L (13-56); Albumin, Serum 3.9 g/dL (3.2-5.0); Alkaline Phosphatase 132 U/L (45-117); Anion Gap 8 (5-15); BUN 13 mg/dL (7-18); BUN/Creat Ratio 14.3 RATIO (10-20); Calcium,Total 9.2 mg/dL (8.5-10.1); Chloride 104 mmol/L (98-107); Creatinine, Serum 0.91 mg/dL (0.55-1.02); EST Glomerular Filtration Rate 66 mL/min (>60); Est Glom Filt Rate - Afr Amer 80 mL/min (>60); Free T3 2.9 pg/mL (2.18-3.98); Glucose 86 mg/dL (74-106); Protein, Total 7.9 g/dL (6.4-8.2); Sodium Level 139 mmol/L (136-145); T4 Free Direct 1.45 ng/dL (0.76-1.46); Thyroid Stim Hormone (TSH) 1.36 uIU/mL (0.358-3.74)
[2019-10-24 16:39] LABS: V-Zoster IgG (Immunity) 1248 index (Immune >165); V-Zoster Virus Acute IgM < 0.91 index (0.00-0.90)
== END ==
PROVIDERS: Family Provider Family Medicine; PCP Family Medicine; Referring Provider Family Medicine; Visit Provider Family Medicine
DX: E03.9 Hypothyroidism, unspecified (principal); M48.061 Spinal stenosis, lumbar region without neurogenic claudication; M54.16 Radiculopathy, lumbar region; B02.9 Zoster without complications; B00.89 Other herpesviral infection
CPT/HCPCS: 36415; 80053; 84439; 84443; 84481; 85025; 86695; 86696; 86787

== ENCOUNTER → 2019-10-31 08:40 | Outpatient (CLI) | payer MEDICARE, SELFPAY ==
--- NOTE | 2019-10-31 08:42 | CDU_ITS ---
Reason For Study: Carotid artery stenosis Rt. Velocities/BP Lt. Velocities/BP LT CCA Inflow - 278.1/37.7 cm/sec. Prox CCA 185.6/30.6 cm/sec. Prox Anas, 343.9/16.9 cm/sec. Mid CCA 214.6/33.1 cm/sec. Prox graft, 283.4/36.5 cm/sec. Dist CCA 278.1/37.7 cm/sec. Mid graft, 104.7 cm/sec Prox ICA 143.3/42.4 cm/sec. Dist graft, 168.6 cm/sec Mid ICA 114.8/29.2 cm/sec. Dist Anas, 391.2/10.7 cm/sec. Dist ICA 130.1/22.6 cm/sec. Prox CCA 120.4 cm/sec. Lt. ICA/CCA = 0.67. Mid CCA 148.7 cm/sec. Prox ECA 112.2/11.1 cm/sec. Dist CCA 167.2 cm/sec. Lt. Vert. 50.2/24.9 cm/sec. Prox ICA 407/24.7 cm/sec. Mid ICA 124.8/31 cm/sec. Dist ICA 98.9/27.8 cm/sec. Prox ECA 84.4/9.3 cm/sec. Rt. Vert. 22.6/7.3 cm/sec. Right Extracranial There is homogeneous, smooth atherosclerotic plaque noted in the right common carotid artery. There is heterogeneous, irregular atherosclerotic plaque noted in the right internal carotid artery. There is heterogeneous, irregular atherosclerotic plaque noted in the right external carotid artery. Abnormal waveform noted in the right vertebral artery. Left Extracranial There is homogeneous, smooth atherosclerotic plaque noted in the left common carotid artery. There is heterogeneous, irregular atherosclerotic plaque noted in the left internal carotid artery. There is heterogeneous, irregular atherosclerotic plaque noted in the left external carotid artery. Antegrade flow is noted in the left vertebral artery. Procedure Carotid Duplex [id number]. Exam performed in department. Interpretation Summary Moderate (50-69%) stenosis right extracranial internal carotid. Moderate (50-69%) stenosis left extracranial internal carotid. Flow within the left verterbral artery is antegrade. Right vertebral with abnormall flow. Ordering Physician: Kam Nava Referring Physician: Daron Benton MD Performed By: Tena Davidson RVT
== END ==
PROVIDERS: Family Provider Family Medicine; PCP Family Medicine; Referring Provider Surgery Vascular Surgery; Visit Provider Surgery Vascular Surgery
DX: I65.23 Occlusion and stenosis of bilateral carotid arteries (principal); I77.1 Stricture of artery; I74.09 Other arterial embolism and thrombosis of abdominal aorta; I70.1 Atherosclerosis of renal artery; I70.213 Atherosclerosis of native arteries of extremities with intermittent claudication, bilateral legs; I25.10 Atherosclerotic heart disease of native coronary artery without angina pectoris; G35 Multiple sclerosis; E07.9 Disorder of thyroid, unspecified; Z72.0 Tobacco use; Z86.73 Personal history of transient ischemic attack (TIA), and cerebral infarction without residual deficits
CPT/HCPCS: 93880

== ENCOUNTER 2020-01-18 14:05 | Emergency (ER) | payer MEDICARE, MEDICAID, SELFPAY ==
[2020-01-18 14:06] VITALS: BP 160/98; PULSE 111; RESP 20; TEMP 36.8; O2SAT 96; BMI 22.2
--- NOTE | 2020-01-18 14:23 | CT_ITS ---
STUDY: CT ABDOMEN AND PELVIS WITHOUT CONTRAST REASON FOR EXAM: Female, 64 years old. BACK PAIN/groin PAIN -- HX-MS,APPY,GB RADIATION DOSAGE (If Supplied By Facility): CTDIvol = ( 6.29 ) mGy, DLP = ( 284.60 ) mGycm TECHNIQUE: Transaxial images were obtained from the dome of the diaphragm to the symphysis pubis without oral contrast, and without intravenous contrast. Sagittal and coronal images were reconstructed. Individualized dose optimization techniques were used for this CT. COMPARISON: CT abdomen and pelvis February 01, 2018 FINDINGS: The visualized lung bases are unremarkable. There is borderline cardiac enlargement. Normal liver. There is non-visualization of the gallbladder, which may be secondary to either contraction or a prior cholecystectomy. Normal spleen. Normal pancreas. Normal bilateral adrenal glands. Normal right kidney. Normal left kidney. Normal visualized stomach. There is a mildly distended appearance of the small bowel. There is mild wall thickening in the mid aspect of the small bowel mid abdomen image #75. This is some similarity to the prior study. There is mild to moderate stool in the tortuous colon. There is non-visualization of the appendix. The aorta is partially calcified. There is calcification of the bilateral renal arteries. There is a narrowed appearance of the distal aorta. There is calcification of the bilateral common iliac arteries. Normal inferior vena cava. Normal retroperitoneum. Normal urinary bladder. There is absence of the uterus consistent with a prior hysterectomy. There is bilateral anterior abdominal wall edema and/or scarring. This is more apparent than prior study. There is a persistent catheter or lead that is involving the spinal canal. A pump is not seen. This catheter lead extends proximally to the level of L1 into the spinal canal. There is degenerative change in the thoracolumbar spine most significant at L5-S1 where there is disc space narrowing and vacuum phenomenon. There are nonspecific small lymph nodes in the groin. CT/Abdomen/Pelvis without Cont IMPRESSION: Moderate distention of the small bowel similar to prior study could consider mild ileus potentially minimal enteritis. No evidence of hydronephrosis no visualized renal stones. Mild cardiomegaly. Atherosclerotic disease of the aorta and common iliacs. Status post hysterectomy. Status post cholecystectomy Degenerative change thoracolumbar spine. There is postoperative scarring in the anterior aspect of the abdominal wall with a residual left side baclofen-type catheter without a baclofen pump. Electronically Signed: Claribel Thomas MD at 15:51 EST Tel , Service support ,
--- NOTE | 2020-01-18 14:27 | ED.DCSUM_ITS ---
History of Present Illness Informant: Patient, Significant Other - Abdominal Pain/Flank Pain Onset: Days - 10 Context: Gradual Onset Timing: Intermittent Quality: Sharp Location: Right Flank Current Severity: Severe Maximum Severity: Severe Worsened by: Nothing Relieved by: Remaining Still - Nausea/Vomiting/Emesis GI Symptom: Nausea. Negative for: Vomiting - Diarrhea/Melena/Hematochezia GI Symptom: Negative for: Diarrhea, Melena, Hematochezia Associated Symptoms: Frequency, Urgency. Negative for: Dysuria, Hematuria Narrative: 64-year-old female history of peripheral vascular disease, chronic pain and multiple sclerosis presents to the emergency department with right flank pain. It has gotten progressively worse over the last 10 days. It is sharp and stabbing. Nothing makes it better or worse. It does not radiate. She has had nausea but no vomiting. She has urinary frequency and urgency. No dysuria or hematuria. No abdominal pain. No diarrhea melena or hematochezia. No chest pain or shortness of breath. She has chronic neuropathy in both legs which she has no worsening numbness tingling or weakness sensations. She is ambulatory. No loss of bowel or bladder function. Denies history of kidney stones. Prior similar symptoms: No Recent Illness/Hospitalization: No <Kirk Osuna - Last Filed: 01/18/20 17:30> <Iona Jones - Last Filed: 01/18/20 18:16> Chief Complaint: Back Past Medical History Prior records reviewed: Yes Past Medical History: - - Hypertension, hyperlipidemia, MS, peripheral vascular disease, chronic pain Surgical History: - - Carotid endarterectomy, partial thyroidectomy, , hysterectomy, cholecystectomy Lives: With Family Smoking Status: Current every day smoker Alcohol: Occasional Drugs: None - Family History Maternal Family History: Family History (Last Reviewed 08/05/19 @ 11:[address] Orlando Jacob MD) Mother Cancer CAD (coronary artery disease) Brain tumor Grandfather CVA (cerebral vascular accident) Father CAD (coronary artery disease) Ruptured abdominal aortic aneurysm (AAA) Sister Brain aneurysm Family History: Reports: No pertinent history Paternal Family History: Family History (Last Reviewed 08/05/19 @ 11:[address] Orlando Jacob MD) Mother Cancer CAD (coronary artery disease) Brain tumor Grandfather CVA (cerebral vascular accident) Father CAD (coronary artery disease) Ruptured abdominal aortic aneurysm (AAA) Sister Brain aneurysm Family History: Reports: Heart Disease <Kirk Osuna - Last Filed: 01/18/20 17:30> - Family History Maternal Family History: Family History (Last Reviewed 08/05/19 @ 11:[address] Orlando Jacob MD) Mother Cancer CAD (coronary artery disease) Brain tumor Grandfather CVA (cerebral vascular accident) Father CAD (coronary artery disease) Ruptured abdominal aortic aneurysm (AAA) Sister Brain aneurysm Paternal Family History: Family History (Last Reviewed 08/05/19 @ 11:[address] Orlando Jacob MD) Mother Cancer CAD (coronary artery disease) Brain tumor Grandfather CVA (cerebral vascular accident) Father CAD (coronary artery disease) Ruptured abdominal aortic aneurysm (AAA) Sister Brain aneurysm <Iona Jones - Last Filed: 01/18/20 18:16> - Allergies and Home Meds Allergies/Adverse Reactions: Allergies colestipol [From Colestid] Allergy (Mild, Verified 01/18/20 14:09) unknown pregabalin [From Lyrica] Allergy (Mild, Verified 01/18/20 14:09) Hives amitriptyline Allergy (Verified 01/18/20 14:09) Rash temazepam [From Restoril] Adverse Reaction (Mild, Verified 01/18/20 14:09) Nausea/Vom/Diarrhea Antihistamines - Alkylamine Adverse Reaction (Verified 01/18/20 14:09) Nausea/Vom/Diarrhea Antihistamines - Ethanolamine Adverse Reaction (Verified 01/18/20 14:09) Nausea/Vom/Diarrhea Antihistamines - Ethylenediamine Adverse Reaction (Verified 01/18/20 14:09) Nausea/Vom/Diarrhea Antihistamines - Piperazine Adverse Reaction (Verified 01/18/20 14:09) Nausea/Vom/Diarrhea Antihistamines - Piperidine Adverse Reaction (Verified 01/18/20 14:09) Nausea/Vom/Diarrhea aspirin Adverse Reaction (Verified 01/18/20 14:09) I'M ON BLOOD THINNERS codeine Adverse Reaction (Verified 01/18/20 14:09) Nausea morphine Adverse Reaction (Verified 01/18/20 14:09) Nausea Jqbkwcl-Yxx-Pij Reductase Inhibitor Adverse Reaction (Verified 01/18/20 14:09) Nausea STEROIDS BY MOUTH Adverse Reaction (Uncoded 01/18/20 14:09) Upset Stomach Primary Care Physician: Daron Benton MD [Primary Care Provider] - 1 Day Review of Systems All systems negative except as indicated General: Denies: Chills, Fever, Malaise Eyes: Denies: Visual changes - bilaterally, Blurred Vision - bilaterally, Diplopia ENT: Denies: Rhinorrhea, Sore throat Cardiovascular: Denies: Chest pain, Palpitations, Heart racing Respiratory: Denies: Dyspnea, Cough, Sputum, Dyspnea on exertion, Orthopnea, Paroxysmal nocturnal dyspnea Gastrointestinal: Reports: Abdominal pain, Nausea. Denies: Vomiting, Diarrhea, Constipation, Melena, Hematochezia Genitourinary: Reports: Frequency. Denies: Dysuria, Hematuria Musculoskeletal: Reports: Back pain. Denies: Myalgias, Arthralgias, Neck pain, Swelling, Extremity Pain Skin: Denies: Rash, Abscess, Abrasions, Wounds Neurological: Denies: Headache, Weakness, Parasthesia, Numbness Psych: Denies: Depression, Anxiety <Kirk Osuna - Last Filed: 01/18/20 17:30> Physical Exam Vital Signs/Narrative: Vital Signs Temp Pulse Resp BP Pulse Ox 01/18/20 14:06 98.2 F 111 H 20 H 160/98 H 96 Inital Vital Signs reviewed: Yes General: Well nourished, Well developed, No Acute Distress Head: Normocephalic, Atraumatic Eyes: Perrl, EOMI ENT: Moist mucous membranes Neck: Supple, Nontender Cardiovascular: Regular rate, Regular rhythm, No murmurs Respiratory: No distress, CTA bilaterally, Chest nontender Abdomen: Soft, Nontender, Nondistended, Normal bowel sounds, No masses Back: Nontender, Normal Inspection. Negative for: CVA tenderness, Spinal tenderness Extremities: Nontender, No edema Skin: Normal color, No rash, No Trauma Neurological: Alert, Oriented x3, Normal Strength, Normal Sensation Psychological: Normal affect, Normal Mood <Kirk Osuna - Last Filed: 01/18/20 17:30> Vital Signs/Narrative: Vital Signs Pulse Resp BP Pulse Ox 01/18/20 17:43 67 16 132/77 H 94 <Iona Jones - Last Filed: 01/18/20 18:16> Diagnostic/Tx/Re-eval CT: Flank - Medical Decision Making Patient presented with right flank pain. She was given IV fluids and Zofran and 1 dose of Dilaudid. She has allergies to morphine and Toradol. CBC BMP were obtained both were unremarkable. CT scan of the abdomen and pelvis without contrast showed moderate distention of the small bowel similar to prior study however could consider mild ileus versus minimal enteritis. No other acute abnormalities were noted. Urinalysis was unremarkable. Repeat exam the patient states her pain is improved. Repeat abdominal exam is soft and nontender and the patient at this time is tolerating by mouth. Patient will be discharged home to follow-up with her doctor. She states that she has oxycodone to take at home for pain. She was agreeable with plan and she was advised to return if she develops worsening symptoms which were discussed. Impressions Abdomen/Pelvis CT 01/18/20 14:23 IMPRESSION: Moderate distention of the small bowel similar to prior study could consider mild ileus potentially minimal enteritis. No evidence of hydronephrosis no visualized renal stones. Mild cardiomegaly. Atherosclerotic disease of the aorta and common iliacs. Status post hysterectomy. Status post cholecystectomy Degenerative change thoracolumbar spine. There is postoperative scarring in the anterior aspect of the abdominal wall with a residual left side baclofen-type catheter without a baclofen pump. Electronically Signed: Claribel Thomas MD at 15:51 EST Tel , Service support , 01/18/20 14:23 Abdomen/Pelvis without Cont [CT] Stat Laboratory Results 01/18/20 01/18/20 01/18/20 14:45 14:45 16:50 WBC 6.4 RBC 5.51 H Hgb 16.0 H Hct 47.9 H MCV 86.9 MCH 29.0 MCHC 33.4 RDW Std Deviation 44.4 H RDW Coeff of David 13.9 Plt Count 169 MPV 9.5 Immature Gran % (Auto) 0.500 Neut % (Auto) 62.8 Lymph % (Auto) 16.1 L [place] % (Auto) 8.9 Eos % (Auto) 11.1 H Baso % (Auto) 0.6 Absolute Neuts (auto) 4.0 Absolute Lymphs (auto) 1.03 Nucleated RBC % 0 Sodium 138 Potassium 3.5 Chloride 105 Carbon Dioxide 26.0 Anion Gap 7 BUN 15 Creatinine 0.94 Estim Creat Clear Calc 55.86 Est GFR (MDRD) Af Amer 77 Est GFR (MDRD) Non-Af 64 BUN/Creatinine Ratio 16.0 Glucose 118 H Calcium 9.0 Urine Color Straw Urine Clarity Clear Urine pH 6.0 Ur Specific [place] 1.015 Urine Protein Negative Urine Glucose (UA) Normal Urine Ketones Negative Urine Occult Blood Negative Urine Nitrite Negative Urine Bilirubin Negative Urine Urobilinogen Normal Ur Leukocyte Esterase Negative Urine RBC 0-5 SEEN Urine WBC 0-5 SEEN Ur Squamous Epith Cells 0-5 SEEN Urine Bacteria 0 SEEN Hyaline Casts 0-5 SEEN Urine Mucus 0 SEEN <Kirk Osuna - Last Filed: 01/18/20 17:30> - Medical Decision Making Patient seen and evaluated with physicians assistant chief train dispatcher. Patient was independently interviewed and examined. Patient presents with bilateral groin pain. She states that her urine has been abnormal color intermittently for the past several weeks. She describes it as being bright yellow. She was seen at urgent care and she states a urine dip was unremarkable. Patient is lying in bed no acute distress. Head and neck examination unremarkable. Heart is regular rate and rhythm. Lung sounds are clear. Abdomen is soft with mild lower abdominal tenderness. No guarding or rebound. Extremity examination reveals strong distal pulses. Work-up is unremarkable. Patient is reassured with these findings. She will follow-up with her MS doctor tomorrow. <Iona Jones - Last Filed: 01/18/20 18:16> ED Disposition <Kirk Osuna - Last Filed: 01/18/20 17:30> <Iona Jones - Last Filed: 01/18/20 18:16> - Plan for ED Patient: Disposition: Home or Assisted Living Diagnosis: Acute right flank pain, Chronic back pain, Multiple sclerosis Instructions: FLANK PAIN, Uncertain Cause Referrals: Daron Benton MD [Primary Care Provider] - 1 Day
[2020-01-18] MEDS: 0.9% Normal Saline 1,000 ML 1000 ML IV (14:40)
[2020-01-18] MEDS: HYDROmorphone 1 MG/ML Syringe IV ×2 (14:41→16:42)
[2020-01-18] MEDS: Ondansetron 4 MG/2 ML Vial IV (14:41)
[2020-01-18 14:58] LABS: Absolute Lymphocyte Count 1.03 X10^3/uL (0.83-4.51); Basophil# 0.04 X10^3/uL; Basophil% 0.6 % (0-1); Eosinophil# 0.71 X10^3/uL; Eosinophils% 11.1 % (0-5); Hematocrit 47.9 % (37-47); Lymphocyte # 1.03 X10^3/ul (4.0); Lymphocyte % 16.1 % (19-41); Mean Corp Hgb Conc 33.4 g/dL (32-36); Mean Corpuscular Volume 86.9 fL (81-99); Mean Platelet Vol. 9.5 fl (6.2-12.0); Monocyte# 0.57 X10^3/uL; Monocyte% 8.9 % (0-10); NRBC Flagged by Analyzer 0 % (0-5); Neutrophil # 4.02 X10^3/uL (2.7-7.7); Neutrophil % 62.8 % (47-70); Platelet Count 169 K/mm3 (150-450); RBC Distribution Width CV 13.9 % (11.6-14.6); RBC Distribution Width SD 44.4 fl (35.1-43.9); Red Blood Count 5.51 M/mm3 (4.2-5.4); White Blood Count 6.4 K/mm3 (4.4-11.0)
[2020-01-18 15:10] LABS: Anion Gap 7 (5-15); BUN 15 mg/dL (7-18); Chloride 105 mmol/L (98-107); Creatinine, Serum 0.94 mg/dL (0.55-1.02); EST Glomerular Filtration Rate 64 mL/min (>60); Est Glom Filt Rate - Afr Amer 77 mL/min (>60); Estimated Creatinine Clearance 55.86 ml/min; Glucose 118 mg/dL (74-106); Potassium 3.5 mmol/L (3.5-5.1); Sodium Level 138 mmol/L (136-145)
[2020-01-18 17:08] LABS: Bacteria 0 SEEN /hpf (None Seen); Mucous, Urine 0 SEEN /hpf (<or=2+)
[2020-01-18 17:11] LABS: Color, Urine Straw (Yellow); Glucose, Dipstick Normal (Normal); Ketone-Dipstick Negative (Negative); Leukocyte Esterase-Dipstick Negative /ul (Negative); Nitrite-Dipstick Negative (Negative); Occult Blood-Urine Negative /ul (Negative); Protein-Dipstick Negative (Negative); Specific Gravity, Urine 1.015 (1.002-1.030); Urine Bilirubin Dipstick Negative (Negative); Urine Clarity Clear (Clear); Urine Urobilinogen Normal (Normal)
[2020-01-18 17:17] LABS: Hyaline Cast 0-5 SEEN /lpf (0-5); Squamous Epithelial Cells - UA 0-5 SEEN /hpf (5-10); White Blood Cells 0-5 SEEN /hpf (0-5)
[2020-01-18 17:20] LABS: Red Blood Cells-Urine 0-5 SEEN /hpf (0-5)
[2020-01-18 17:43] VITALS: BP 132/77; PULSE 67; RESP 16; O2SAT 94
== END 2020-01-18 17:44 | disposition home or self-care (01) ==
PROVIDERS: Emergency Provider Physician Assistant Medical; PCP Family Medicine
DX: R10.31 Right lower quadrant pain (principal); R10.32 Left lower quadrant pain; M54.9 Dorsalgia, unspecified; G89.29 Other chronic pain; G35 Multiple sclerosis; R11.0 Nausea; R35.0 Frequency of micturition; R39.15 Urgency of urination; I70.0 Atherosclerosis of aorta; I73.9 Peripheral vascular disease, unspecified; I10 Essential (primary) hypertension; E78.5 Hyperlipidemia, unspecified; F17.200 Nicotine dependence, unspecified, uncomplicated; Z79.899 Other long term (current) drug therapy; Z88.8 Allergy status to other drugs, medicaments and biological substances; Z88.6 Allergy status to analgesic agent; Z88.5 Allergy status to narcotic agent; Z90.710 Acquired absence of both cervix and uterus; Z90.49 Acquired absence of other specified parts of digestive tract
CPT/HCPCS: 74176; 80048; 81001; 85025; 96361; 96374; 96375; 96376; 99283; J7030; A4216; J2405

== ENCOUNTER 2020-01-29 16:25 | Emergency (ER) | payer MEDICARE, MEDICAID, SELFPAY ==
[2020-01-29 16:26] VITALS: BP 193/104; PULSE 96; RESP 16; TEMP 36.6; O2SAT 98; BMI 21.9
--- NOTE | 2020-01-29 16:48 | ED.VIS.GEN ---
History of Present Illness Chief Complaint: Back Informant: Patient Onset: Days Context: Gradual Onset Current Severity: Moderate Maximum Severity: Moderate Narrative: Patient presents with left upper back pain for the past 3 days. She states she was cleaning up her kitchen couple days ago getting ready for some inspections. She does not remember 1 particular moment where she felt sudden pain but developed left upper back pain that is worse with twisting or deep breath. She has a history of chronic pain secondary to spinal issues as well as MS. She is on oxycodone and baclofen. She states her doctor just gave her prescription to start methadone therapy as well but she has not yet started these medications. She was at her neurologist office today who recommended she come in to make sure her ribs were not broken. - Past Medical History (1) Multiple sclerosis Status: Chronic (2) Bilateral carotid artery stenosis Status: Chronic (3) Brain aneurysm Status: Chronic Comment: s/p coiling January 2014 (4) Essential (primary) hypertension Status: Chronic (5) HLD (hyperlipidemia) Status: Chronic (6) Peripheral vascular occlusive disease Status: Chronic Past Medical History - Allergies and Home Meds Allergies/Adverse Reactions: Allergies colestipol [From Colestid] Allergy (Mild, Verified 01/18/20 14:09) unknown pregabalin [From Lyrica] Allergy (Mild, Verified 01/18/20 14:09) Hives amitriptyline Allergy (Verified 01/18/20 14:09) Rash temazepam [From Restoril] Adverse Reaction (Mild, Verified 01/18/20 14:09) Nausea/Vom/Diarrhea Antihistamines - Alkylamine Adverse Reaction (Verified 01/18/20 14:09) Nausea/Vom/Diarrhea Antihistamines - Ethanolamine Adverse Reaction (Verified 01/18/20 14:09) Nausea/Vom/Diarrhea Antihistamines - Ethylenediamine Adverse Reaction (Verified 01/18/20 14:09) Nausea/Vom/Diarrhea Antihistamines - Piperazine Adverse Reaction (Verified 01/18/20 14:09) Nausea/Vom/Diarrhea Antihistamines - Piperidine Adverse Reaction (Verified 01/18/20 14:09) Nausea/Vom/Diarrhea aspirin Adverse Reaction (Verified 01/18/20 14:09) I'M ON BLOOD THINNERS codeine Adverse Reaction (Verified 01/18/20 14:09) Nausea morphine Adverse Reaction (Verified 01/18/20 14:09) Nausea Jqdrgis-Ivf-Ksl Reductase Inhibitor Adverse Reaction (Verified 01/18/20 14:09) Nausea STEROIDS BY MOUTH Adverse Reaction (Uncoded 01/18/20 14:09) Upset Stomach Primary Care Physician: Daron Benton MD [Primary Care Provider] - Prior records reviewed: Yes Surgical History: - - Carotid endarterectomy, partial thyroidectomy, , hysterectomy, cholecystectomy Lives: Alone Smoking Status: Current every day smoker - Family History Maternal Family History: Family History (Last Reviewed 08/05/19 @ 11:[address] Orlando Jacob MD) Mother Cancer CAD (coronary artery disease) Brain tumor Grandfather CVA (cerebral vascular accident) Father CAD (coronary artery disease) Ruptured abdominal aortic aneurysm (AAA) Sister Brain aneurysm Family History: Reports: No pertinent history Paternal Family History: Family History (Last Reviewed 08/05/19 @ 11:[address] Orlando Jacob MD) Mother Cancer CAD (coronary artery disease) Brain tumor Grandfather CVA (cerebral vascular accident) Father CAD (coronary artery disease) Ruptured abdominal aortic aneurysm (AAA) Sister Brain aneurysm Family History: Reports: Heart Disease Review of Systems General: Denies: Chills, Fever Eyes: Denies: Visual changes - bilaterally ENT: Denies: Bilateral ear pain Cardiovascular: Denies: Chest pain, Palpitations Respiratory: Reports: Dyspnea - Increased pain with deep breath Gastrointestinal: Denies: Abdominal pain, Nausea, Vomiting, Diarrhea Musculoskeletal: Reports: Back pain. Denies: Extremity Pain Skin: Denies: Rash, Wounds Neurological: Denies: Headache, Parasthesia, Numbness Hematologic: Denies: Easy bruising Physical Exam Vital Signs/Narrative: Vital Signs Temp Pulse Resp BP Pulse Ox 01/29/20 16:26 98 F 96 16 193/104 H 98 Inital Vital Signs reviewed: Yes General: Well nourished, Well developed Head: Normocephalic ENT: Moist mucous membranes Neck: Supple Cardiovascular: Regular rate, Regular rhythm Respiratory: No distress, CTA bilaterally Abdomen: Soft, Nontender Back: - - Reproducible tenderness just left of midline over the lower thoracic spine. No overlying skin changes. Skin: Normal color Neurological: Alert, Oriented x3, - - Good strength and sensation the upper extremities. Strong distal pulses. Psychological: Normal affect Diagnostic/Tx/Re-eval Impressions Ribs w/Chest X-Ray 01/29/20 17:00 IMPRESSION: RIBS: Normal x-ray examination of the ribs. CHEST: Normal x-ray examination of the chest. Electronically Signed: Mika Hanley MD at 17:39 EDT , Service support , 01/29/20 17:00 Ribs Uni Min 3V w/PA Chest [RAD] Stat - Medical Decision Making Patient had taken oxycodone approximate hour before my evaluation. She was not given further medication while here. Test results are discussed with her. She is reassured with these findings. She will start her methadone tonight. ED Disposition - Plan for ED Patient: Disposition: Home or Assisted Living Diagnosis: Strain of thoracic back region Instructions: Back Sprain/Strain Referrals: Daron Benton MD [Primary Care Provider] - 1 Week if not improving
--- NOTE | 2020-01-29 17:00 | RAD_ITS ---
STUDY: X-RAY - UNILATERAL RIBS ( LEFT ) WITH CHEST REASON FOR EXAM: Female, 64 years old. UPPER LEFT BACK PAIN x3 DAYS. NKI. TECHNIQUE - RIBS: 4 view(s) of the ribs. TECHNIQUE - CHEST: Single AP portable view of the chest. COMPARISON: 05/20/2019. FINDINGS - RIBS: Normal visualized ribs without a demonstrated fracture. FINDINGS - CHEST: The lungs are clear and expanded. There is no demonstrated pleural abnormality. Normal size heart. Normal mediastinum and david. Normal visualized pulmonary arteries. Normal visualized aortic arch and descending thoracic aorta. There is mild dextroscoliosis of the thoracic spine. Normal visualized ribs, clavicles, and shoulders. There is no demonstrated abnormality of the visualized soft tissue structures of the upper abdomen. RAD/Ribs Uni Min 3V w/PA Chest IMPRESSION: RIBS: Normal x-ray examination of the ribs. CHEST: Normal x-ray examination of the chest. Electronically Signed: Mika Hanley MD at 17:39 EDT , Service support ,
[2020-01-29 18:41] VITALS: BP 124/87; PULSE 75; RESP 16; O2SAT 96
== END 2020-01-29 18:41 | disposition home or self-care (01) ==
PROVIDERS: Emergency Provider Emergency Medicine; PCP Family Medicine
DX: S29.012A Strain of muscle and tendon of back wall of thorax, initial encounter (principal); X58.XXXA Exposure to other specified factors, initial encounter; Y93.9 Activity, unspecified; Y92.000 Kitchen of unspecified non-institutional (private) residence as the place of occurrence of the external cause; Y99.9 Unspecified external cause status; G89.29 Other chronic pain; G35 Multiple sclerosis; I65.23 Occlusion and stenosis of bilateral carotid arteries; I10 Essential (primary) hypertension; E78.5 Hyperlipidemia, unspecified; F17.200 Nicotine dependence, unspecified, uncomplicated; Z79.899 Other long term (current) drug therapy; Z88.8 Allergy status to other drugs, medicaments and biological substances; Z88.5 Allergy status to narcotic agent; Z88.6 Allergy status to analgesic agent; Z90.710 Acquired absence of both cervix and uterus; Z90.49 Acquired absence of other specified parts of digestive tract
CPT/HCPCS: 71101; 99282

== ENCOUNTER 2020-02-15 09:43 | Emergency (ER) | payer MEDICARE, MEDICAID, SELFPAY ==
[2020-02-15 09:45] VITALS: BP 146/90; PULSE 74; RESP 16; TEMP 36.8; O2SAT 98; BMI 22.6
--- NOTE | 2020-02-15 10:29 | ED.VISSUMM ---
- ER Visit Summary Date of Service: 02/15/20 Chief Complaint: Back pain History of Present Illness: The patient is a 64 F who presents with back pain that is been getting worse over the past few days. Patient states she has a history of sciatica and it has been getting worse. Patient also has a history of MS. Patient states her pain goes down both legs. Patient describes her pain is sharp and burning. Patient states nothing makes it better or worse. Patient states she has been taking her home medications with no relief. Patient admits to some numbness and tingling in her lower legs. Patient states she is having difficulty ambulating due to the pain. Patient denies any dysuria or hematuria. Patient denies any incontinence of stool or urine. Physical Examination: Vital signs are stable. Patient is afebrile. Patient is in no acute distress. Musculoskeletal exam reveals tenderness over the lumbar spine and paraspinal muscles with even light palpation. There is some mild spasm. There is no bony crepitance or step-off. There is no edema or ecchymosis. Range of motion was limited in all motions of the lumbar spine secondary to pain. Strength is 5/5 bilaterally in the lower extremities. There are no sensory deficits noted. Abdomen is soft. Bowel sounds are normal. There is no tenderness. Emergency Department Course and Treatment: Patient was given an injection of Dilaudid and Zofran here. Patient had slight improvement with this. Patient was given a dose of fentanyl and Norflex. Patient was able to ambulate after this. Patient was instructed to get plenty of rest. Patient was instructed use ice to the areas. Patient was instructed to follow-up with her primary care physician in 3 to 5 days. Patient was instructed return if worse in any way. Patient was instructed to continue her medications as previously prescribed. Patient understood and was agreeable with the plan. All questions were answered. Disposition: Discharge home Impression: Acute on chronic low back pain This note was generated with [employer] dictation software. It may contain incorrect words, spelling, and punctuation that were not noted in review of the chart prior to signing ED Disposition - Plan for ED Patient: Disposition: Home or Assisted Living Diagnosis: Acute exacerbation of chronic low back pain Instructions: ED Back Pain Acute or Chronic Referrals: Daron Benton MD [Primary Care Provider] - 3-5 Days
[2020-02-15] MEDS: HYDROmorphone 1 MG/ML Syringe IM (10:32)
[2020-02-15] MEDS: Ondansetron ODT 4 MG Tablet PO (11:09)
[2020-02-15] MEDS: fentaNYL 100 MCG/2 ML Ampul 25 MCG IM (11:49)
== END 2020-02-15 13:50 | disposition home or self-care (01) ==
PROVIDERS: Emergency Provider Emergency Medicine; PCP Family Medicine
DX: M54.5 Low back pain (principal); G89.29 Other chronic pain; R26.2 Difficulty in walking, not elsewhere classified; M79.604 Pain in right leg; M79.605 Pain in left leg; R20.2 Paresthesia of skin; R20.0 Anesthesia of skin; I25.10 Atherosclerotic heart disease of native coronary artery without angina pectoris; I10 Essential (primary) hypertension; L40.50 Arthropathic psoriasis, unspecified; Z72.0 Tobacco use; Z79.02 Long term (current) use of antithrombotics/antiplatelets; Z79.899 Other long term (current) drug therapy
CPT/HCPCS: 96372; 99284

== ENCOUNTER → 2020-04-28 11:48 | Outpatient (CLI) | payer MEDICARE, MEDICAID, SELFPAY ==
[2020-04-28 15:37] LABS: Absolute Lymphocyte Count 1.24 X10^3/uL (0.83-4.51); Basophil# 0.05 X10^3/uL; Basophil% 0.6 % (0-1); Eosinophil# 0.12 X10^3/uL; Eosinophils% 1.5 % (0-5); Hematocrit 47.8 % (37-47); Hemoglobin 15.1 g/dL (12.0-15.0); Lymphocyte # 1.24 X10^3/ul (4.0); Lymphocyte % 15.4 % (19-41); Mean Corp Hgb Conc 31.6 g/dL (32-36); Mean Corpuscular Volume 91.9 fL (81-99); Mean Platelet Vol. 10.9 fl (6.2-12.0); Monocyte# 0.61 X10^3/uL; Monocyte% 7.6 % (0-10); NRBC Flagged by Analyzer 0 % (0-5); Neutrophil # 5.98 X10^3/uL (2.7-7.7); Neutrophil % 74.5 % (47-70); Platelet Count 164 K/mm3 (150-450); RBC Distribution Width CV 14.6 % (11.6-14.6); RBC Distribution Width SD 49.3 fl (35.1-43.9)
[2020-04-28 15:55] LABS: Vitamin D,25 Hydroxy 63.8 ng/mL
[2020-04-28 16:08] LABS: AST(SGOT) 22 U/L (15-37); Alanine Aminotransfer ALT/SGPT 30 U/L (13-56); Albumin, Serum 3.7 g/dL (3.2-5.0); Alkaline Phosphatase 130 U/L (45-117); Anion Gap 6 (5-15); BUN 17 mg/dL (7-18); BUN/Creat Ratio 21.3 RATIO (10-20); Calcium,Total 9.2 mg/dL (8.5-10.1); Chloride 104 mmol/L (98-107); EST Glomerular Filtration Rate 77 mL/min (>60); Est Glom Filt Rate - Afr Amer 93 mL/min (>60); Ferritin 50 ng/mL (8-252); Globulin 3.6 g/dL (2.2-4.2); Glucose 84 mg/dL (74-106); Iron 96 ug/dL (50-170); Iron Binding Capacity,Total 346 ug/dL (250-450); PERCENT IRON SATURATION 27.7 % (15.0-55.0); Potassium 4.4 mmol/L (3.5-5.1); Protein, Total 7.3 g/dL (6.4-8.2); Sodium Level 139 mmol/L (136-145); Thyroid Stim Hormone (TSH) 1.41 uIU/mL (0.358-3.74)
--- OUTSIDE RECORDS SUMMARY | 2020-09-05 11:03 | XMS RPT_ITS | CCD ---
:1955 External Reference #:[id number] Author Organization [facility] Team Providers Name Role Phone Sotero ONOFRE Unavailable Unavailable KENISHA, S Unavailable Unavailable KENISHA, S Unavailable Unavailable Viet Araujo Unavailable Unavailable Viet Araujo Unavailable Unavailable Carmel Solis Unavailable KAI ONOFRE Unavailable Unavailable Janett PARRA Unavailable Unavailable Viet Araujo Unavailable Unavailable Will Carmel Unavailable Carlos Stack Unavailable Yonas Nava Unavailable Gilmer Benton Primary Care Provider Allergies Reported Allergen Reaction(s) Severity Date of Location Onset Amitriptyline Rash 03-12-2019 - [facility] (57270) Antihistamines Critical 04-28-2004 - [facility] Translations: [ Health Syste m ANTIHISTAMINES, Repository ANTIHISTAMINES] aspirin Hx bleeding Critical, 11-22-2011 - [facility] gastric ulcer Critical Sports Medicin e and Orthopaedics (28974) clopidogrel Other: See 12-18-2011 - [facility] Translations: [ Comments Health Syste m CLOPIDOGREL Repository BISULFATE, CLOPIDOGREL BISULFATE] codeine Translations: Critical 04-28-2004 - [facility] [ CODEINE, CODEINE] Health S ystem Repository colestipol GI distress Moderate, 04-27-2015 - [facility] Moderate [facility] Orthopa[facility]ics (59658) fenofibrate Intolerance 04-27-2011 - [facility] Translations: [ Health Syste m FENOFIBRATE Repository MICRONIZED, FENOFIBRATE MICRONIZED] fentaNYL Other: See 02-19-2012 - [facility] Translations: [ Comments Health Syste m FENTANYL, FENTANYL] Reposito ry Hmg-Coa Reductase GI upset Moderate, 01-06-2015 - [facility] Inhibitors (Statins) Moderate [facility] Orthopa[facility]ics (69925) Hmg-Coa Reductase Intolerance 04-27-2011 - [place] [facility] Inhibitors (Statins) Health System Translations: [ Repository [id number] REDUCTASE INHIBITORS, LNPUPVA-JBQ-JRL REDUCTASE INHIBITORS] morphine Critical 04-28-2004 - [facility] Translations: [ Health Syste m MORPHINE, MORPHINE] Reposito ry predniSONE 12-15-2008 - [facility] Translations: [ Health Syste m PREDNISONE, Repository PREDNISONE] salicylic acid 12-04-2008 - [facility] Translations: [ Health Syste m SALICYLATES, Repository SALICYLATES] temazepam insomonia Mild, Mild 01-11-2016 - [facility] ter Sports Medicine and Orthopaedics (63286) Medications Medication Name Sig Date Prescriber Location acetaminophen / HYDROCODONE-ACETAMIN 07-12-2015 - [facility] HYDROcodone OPHEN 5-325 MG TABS 07-11-2016 Sports M edicine and One tablet by mouth Orthopae dics (49067) four times daily as needed HYDROCODONE-ACETAMIN OPHEN [id number] Orlando Jacob MD HYDROCODONE-ACETAMINOPHEN 5-300 MG 07-10-2014 - [facility] TABS One tablet by mouth daily at 01-06-2015 Sports Medicine and bedtime Or thopaedics (29177) HYDROCODONE-ACETAMINOPHEN [id number] Betsey Lindquist PA-C VICODIN 5-500 MG TABS as needed 09-24-2013 - [facility] 12-24-2013 Sports Med icine and HYDROCODONE-ACETAMINOPHEN Orthop aedics (34865) [phone] Betsey Lindquist PA-C VICODIN 5-500 MG TABS as needed 09-24-2013 [facility] Sports Medicine and HYDROCODONE-ACETAMINOPHEN Orthop aedics (43632) [phone] Orlando Jacob MD VICODIN 5-500 MG TABS as needed 09-24-2013 - [facility] 12-24-2013 Sports Med icine and HYDROCODONE-ACETAMINOPHEN Orthop aedics (45226) [id number] Betsey Lindquist PA-C VICODIN 5-500 MG TABS as needed 09-24-2013 [facility] Sports Medicine and HYDROCODONE-ACETAMINOPHEN Orthop aedics (45897) [phone] Orlando Jacob MD VICODIN 5-500 MG TABS as needed 09-24-2013 [facility] Sports Medicine and HYDROCODONE-ACETAMINOPHEN Orthop aedics (50332) [phone] Orlando Jacob MD VICODIN 5-500 MG TABS as needed 09-24-2013 - [facility] 12-24-2013 Sports Med icine and HYDROCODONE-ACETAMINOPHEN Orthop aedics (58057) [id number] Betsey Lindquist PA-C VICODIN 5-500 MG TABS as needed 09-24-2013 [facility] Sports Medicine and HYDROCODONE-ACETAMINOPHEN Orthop aedics (35787) [phone] Orlando Jacob MD VICODIN 5-500 MG TABS as needed 09-24-2013 - [facility] 12-24-2013 Sports Med icine and HYDROCODONE-ACETAMINOPHEN Orthop aedics (33309) [id number] Betsey Lindquist PA-C VICODIN 5-500 MG TABS as needed 09-24-2013 - [facility] 12-24-2013 Sports Med icine and HYDROCODONE-ACETAMINOPHEN Orthop aedics (76669) [phone] Betsey Lindquist PA-C VICODIN 5-500 MG TABS as needed 09-24-2013 [facility] Sports Medicine and HYDROCODONE-ACETAMINOPHEN Orthop aedics (25690) [phone] Orlando Jacob MD VICODIN 5-500 MG TABS as needed 09-24-2013 - [facility] 12-24-2013 Sports Med icine and HYDROCODONE-ACETAMINOPHEN Orthop aedics (03209) [phone] Betsey Lindquist PA-C VICODIN 5-500 MG TABS as needed 09-24-2013 [facility] Sports Medicine and HYDROCODONE-ACETAMINOPHEN Orthop aedics (92181) [phone] Orlando Jacob MD VICODIN 5-500 MG TABS as needed 09-24-2013 - [facility] 12-24-2013 Sports Med icine and HYDROCODONE-ACETAMINOPHEN Orthop aedics (85794) [phone] Betsey Lindquist PA-C VICODIN 5-500 MG TABS as needed 09-24-2013 [facility] Sports Medicine and HYDROCODONE-ACETAMINOPHEN Orthop aedics (98965) [phone] Orlando Jacob MD HYDROcodone-acetaminophen (NORCO) [facility] Provider [facility] 5-325 mg per tablet Take 1 tablet Sports Medicine and by mouth every 6 hours as needed. Orthopaedics (69836) 0 Active Comment: Take 1 tablet by mouth every 6 hours as needed. acetaminophen / PERCOCET 5-325 MG TABS 1 tablet 11-23-2011 [facility] oxyCODONE by mouth 3 X a day As needed Sports Medicine and Orthopaedics (4 4660) OXYCODONE-ACETAMINOPHEN [phone] Dena Araya RN PERCOCET 5-325 MG TABS 1 tablet by 11-23-2011 - - [facility] mouth 3 X a day As needed Sports Medicine and OXYCODONE-ACETAMINOPHEN Orthopaedics (58537) [phone] Orlando Jacob MD PERCOCET 5-325 MG TABS 1 tablet by 11-23-2011 [facility] mouth 3 X a day As needed Sports Medicine and OXYCODONE-ACETAMINOPHEN [phone] Orthopaedics (03909) Dena Araya RN PERCOCET 5-325 MG TABS 1 tablet by 11-23-2011 - --2011 [facility] mouth 3 X a day As needed Sports Medicine and OXYCODONE-ACETAMINOPHEN Orthopaedics (74720) [phone] Orlando Jacob MD PERCOCET 5-325 MG TABS 1 tablet by 11-23-2011 [facility] mouth 3 X a day As needed Sports Medicine and OXYCODONE-ACETAMINOPHEN [phone] Orthopaedics (08419) Dena Araya RN PERCOCET 5-325 MG TABS 1 tablet by 11-23-2011 - - [facility] mouth 3 X a day As needed Sports Medicine and OXYCODONE-ACETAMINOPHEN Orthopaedics (62179) [phone] Orlando Jacob MD PERCOCET 5-325 MG TABS 1 tablet by 11-23-2011 - 05-21-2012 [facility] mouth 3 X a day As needed Sports Medicine and OXYCODONE-ACETAMINOPHEN [phone] Orthopaedics (91538) Dena Araya RN PERCOCET 5-325 MG TABS 1 tablet by 11-23-2011 [facility] mouth 3 X a day As needed Sports Medicine and OXYCODONE-ACETAMINOPHEN [phone] Orthopaedics (08712) Dena Araya RN PERCOCET 5-325 MG TABS 1 tablet by 11-23-2011 - 05-21-2012 [facility] mouth 3 X a day As needed Sports Medicine and OXYCODONE-ACETAMINOPHEN Orthopaedics (45099) [phone] Orlando Jacob MD PERCOCET 5-325 MG TABS 1 tablet by 11-23-2011 [facility] mouth 3 X a day As needed Sports Medicine and OXYCODONE-ACETAMINOPHEN [phone] Orthopaedics (47292) Dena Araya RN PERCOCET 5-325 MG TABS 1 tablet by 11-23-2011 - - [facility] mouth 3 X a day As needed Sports Medicine and OXYCODONE-ACETAMINOPHEN Orthopaedics (94936) [phone] Orlando Jacob MD Albuterol albuterol HFA (VENTOLIN HFA) 05-26-2020 [facility] (Mya ) [facility] 90 mcg/actuation inhaler Caputo (44 195) Inhale 2 Puffs as instructed every 4 hours as needed for Wheezing/Shortness of Breath. 1 Inhaler 0 05/26/2020 Active Comment: Inhale 2 Puffs as instructed every 4 hours as needed for Wheezing/Shortness of Breath. Amitriptyline amitriptyline (ELAVIL) 25 mg [facility] Provide r [facility] (09397) tablet Take 25 mg by mouth daily at bedtime. 0 Active Comment: Take 25 mg by mouth daily at bedtime. atorvastatin LIPITOR 20 MG TABS One 12-25-2014 Luanne Cardoza, [facility] tablet by mouth every RN Sports Medicine and evening Orthopaed ics (64507) ATORVASTATIN CALCIUM [phone] Orlando Jacob MD Azithromycin azithromycin 08-15-2019 Kj Gonzalez (Antwon [facility] linic (ZITHROMAX Z-RAMIRO) [address] [employer]) [place] (03156 ) mg tablet Take 1 tablet by mouth once daily. 1 Package 0 08/15/2019 Active Comment: Take 1 tablet by mouth once daily. baclofen BACLOFEN 10 MG TABS One tablet 05-21-2012 [facility] Sports by mouth four times daily Me dicine and Orthopaedics BACLOFEN [phone] (95368) Orlando Jacob MD BACLOFEN 10 MG TABS 1tablet 05-21-2012 [facility] Sports every 8 hours Medicin e and Orthopaedics BACLOFEN [phone] Orlando Rowland (44 691) MD Nidia BACLOFEN 10 MG TABS 1/2 tablet 11-23-2011 [facility] Sports every 8 hours Medicin e and Orthopaedics BACLOFEN [phone] Dena Santos (446 91) Quiana RN baclofen (GABLOFEN) 40,000 [facility]cf Provider [facility] Sports mcg/20mL (2,000 mcg/mL) Medicine and Orthopaedics injection 50 mcg by (54518) INTRATHECAL route four times daily. 0 Active Comment: 50 mcg by INTRATHECAL route four times daily. benzonatate benzonatate (TESSALON 08-15-2019 Kj Gonzalez ([employer] [facility]) 100 mg capsule [employer]) [place] (06166 ) Indications: Cough Take 2 capsules by mouth three times daily as needed. 42 capsule 0 08/15/2019 Active Comment: Take 2 capsules by mouth thr ee times daily as needed. Calcium Carbonate-Vitamin Calcium Carbonate-Vitamin Cc f Provider [facility] D3 (VITAMIN D-3) 180-5,000 D3 (VITAMIN D-3) 180-5,000 (01685) mg-unit Tab mg-unit Tab Indications: Mastodynia Take by mouth twice daily. 0 Active Calcium Carbonate-Vitamin D3 (VITAMIN D-3) [facility] P [facility] (40279) 180-5,000 mg-unit Tab Indications: Mastodynia Take by mouth twice daily. 0 Active Calcium Carbonate-Vitamin D3 (VITAMIN D-3) [facility] P [facility] (12702) 180-5,000 mg-unit Tab Indications: Mastodynia Take by mouth twice daily. 0 Active Comment: Take by mouth twice daily. cholecalciferol VITAMIN D3 5000 UNIT TABS One 05-21-2012 [facility] Sports tablet by mouth daily Medici ne and Orthopaedics CHOLECALCIFEROL ( 44044) [phone] Orlando Jacob MD VITAMIN D3 5000 UNIT TABS One tablet 05-21-2012 [facility] Sports Medicine by mouth twice daily and Orthopaedics (55034) CHOLECALCIFEROL [phone] Orlando Jacob MD cholestyramine resin CHOLESTYRAMINE LIGHT 4 12-25-2014 - [facility] GM PACK 9g, 1 scoop 04-14-2015 Sports M edicine and daily Orthopaedic s (00011) CHOLESTYRAMINE LIGHT [phone] Luanne Cardoza RN cinnamon bark CINNAMON 500 MG CAPS [facility] One [facility] by mouth 01-11-2016 Sports Medicine and daily Orthopaedic s (24916) CINNAMON [id number] YAMINI CandelarioC citalopram CELEXA 20 MG TABS One 11-22-2011 [facility] tablet by mouth at 05-21-2012 Sports Hi dicine and bedtime Orthopaed ics (83429) CITALOPRAM HYDROBROMIDE [phone] Orlando Jacob MD CELEXA 40 MG TABS 1 tablet by 11-22-2011 - 02-17-2014 [facility] Sports mouth every morning M edicine and Orthopaedics CITALOPRAM HYDROBROMIDE (55710) [id number] Sakshi Cheema Fiore clopidogrel clopidogrel (PLAVIX) 09-24-2013 Danya Peralta [facility] 75 mg tablet Take 1 Sports M edicine and tablet by mouth every Orthop aedics (06594) other day. 0 02/02/2015 Active Comment: Take 1 tablet by mouth every other day. colestipol COLESTID FLAVORED PACK 7.5gm 02-17-2014 [facility] Sports packets 0ne half pack daily Medicine and Orthopaedics COLESTIPOL HCL PACK (95626) [phone] Luanne Cardoza RN COLESTID FLAVORED PACK 7.5gm 02-17-2014 - 04-27-2015 [facility] Sports packets one pack daily Medicine and Orthopaedics (38355) COLESTIPOL HCL PACK [phone] Jacque Quintero RN COLESTID FLAVORED PACK 7.5gm 02-17-2014 [facility] Sports packets one pack daily Medicine and Orthopaedics COLESTIPOL HCL (33626 ) PACK [phone] Luanne Cardoza RN COLESTID FLAVORED PACK 7.5gm 02-17-2014 [facility] Sports packets 0ne half pack daily Medi cine and Orthopaedics COLESTIPOL HCL (59072 ) PACK [phone] Luanne Cardoza RN COLESTID FLAVORED PACK 7.5gm 02-17-2014 [facility] Sports packets one pack daily Medicine and Orthopaedics COLESTIPOL HCL (92286 ) PACK [id number] Luanne Cardoza RN COLESTID FLAVORED PACK 7.5gm 02-17-2014 - 04-27-2015 [facility] Sports packets one pack daily Medicine and Orthopaedics (05499) COLESTIPOL HCL PACK [phone] Jacque Quintero RN COLESTID FLAVORED PACK 7.5gm 02-17-2014 [facility] Sports packets 0ne half pack daily Medi cine and Orthopaedics COLESTIPOL HCL (79477 ) PACK [phone] Luanne Cardoza RN COLESTID FLAVORED PACK 7.5gm 02-17-2014 - 04-27-2015 [facility] Sports packets one pack daily Medicine and Orthopaedics (52946) COLESTIPOL HCL PACK [phone] Jacque Quintero RN COLESTID FLAVORED PACK 7.5gm 02-17-2014 [facility] Sports packets one pack daily Medicine and Orthopaedics COLESTIPOL HCL (77866 ) PACK [phone] Luanne Cardoza RN COLESTID FLAVORED PACK 7.5gm 02-17-2014 - 04-27-2015 [facility] Sports packets 0ne half pack daily Medi cine and Orthopaedics COLESTIPOL HCL (14067 ) PACK [phone] Luanne Cardoza RN COLESTID FLAVORED PACK 7.5gm 02-17-2014 - 04-27-2015 [facility] Sports packets one pack daily Medicine and Orthopaedics (23857) COLESTIPOL HCL PACK [phone] Jacque Quintero RN COLESTID FLAVORED PACK 7.5gm 02-17-2014 [facility] Sports packets 0ne half pack daily Medi cine and Orthopaedics COLESTIPOL HCL (34729 ) PACK [id number] Luanne Cardoza RN COLESTID FLAVORED PACK 7.5gm 02-17-2014 [facility] Sports packets one pack daily Medicine and Orthopaedics COLESTIPOL HCL (43793 ) PACK [phone] Luanne Cardoza RN COLESTID FLAVORED PACK 7.5gm 02-17-2014 [facility] Sports packets 0ne half pack daily Medi cine and Orthopaedics COLESTIPOL HCL (35320 ) PACK [phone] Luanne Cardoza RN COLESTID FLAVORED PACK 7.5gm 02-17-2014 [facility] Sports packets one pack daily Medicine and Orthopaedics COLESTIPOL HCL (89839 ) PACK [phone] Luanne Cardoza RN COLESTID FLAVORED PACK 7.5gm 02-17-2014 - 04-27-2015 [facility] Sports packets one pack daily Medicine and Orthopaedics (36194) COLESTIPOL HCL PACK [phone] Jacque Quintero RN DARVOCET-N 100 650MG DARVOCET-N 100 650MG 11-22-2011 [facility] Sports 100mg, One tablet by Medicin e and Orthopaedics mouth three times daily (446 91) DARVOCET-N 100 650MG Sakshi Fiore DARVOCET-N 100 650MG 100mg, 11-22-2011 - 11-23-2011 [facility] Sports One tablet by mouth three Medici ne and Orthopaedics times daily (85977) DARVOCET-N 100 650MG Dena Araya RN DARVOCET-N 100 650MG 100mg, 11-22-2011 [facility] Sports One tablet by mouth three Medici ne and Orthopaedics times daily (96596) DARVOCET-N 100 650MG Sakshi Fiore DARVOCET-N 100 650MG 100mg, 11-22-2011 - 11-23-2011 [facility] Sports One tablet by mouth three Medici ne and Orthopaedics times daily (90344) DARVOCET-N 100 650MG Dena Araya RN DARVOCET-N 100 650MG 100mg, 11-22-2011 [facility] Sports One tablet by mouth three Medici ne and Orthopaedics times daily (48285) DARVOCET-N 100 650MG Sakshi Fiore DARVOCET-N 100 650MG 100mg, 11-22-2011 - 11-23-2011 [facility] Sports One tablet by mouth three Medici ne and Orthopaedics times daily (38570) DARVOCET-N 100 650MG Denaariel Araya RN DARVOCET-N 100 650MG 100mg, 11-22-2011 - 11-23-2011 [facility] One tablet by mouth three Medici ne and Orthopaedics times daily (95444) DARVOCET-N 100 650MG Dena Araya RN DARVOCET-N 100 650MG 100mg, 11-22-2011 [facility] Sports One tablet by mouth three Medici ne and Orthopaedics times daily (40134) DARVOCET-N 100 650MG Sakshi Fiore DARVOCET-N 100 650MG 100mg, 11-22-2011 - 11-23-2011 [facility] One tablet by mouth three Medici ne and Orthopaedics times daily (26882) DARVOCET-N 100 650MG Denaariel Araya RN DARVOCET-N 100 650MG 100mg, 11-22-2011 [facility] Sports One tablet by mouth three Medici ne and Orthopaedics times daily (94550) DARVOCET-N 100 650MG Sakshi Fiore DARVOCET-N 100 650MG 100mg, 11-22-2011 - 11-23-2011 [facility] One tablet by mouth three Medici ne and Orthopaedics times daily (21039) DARVOCET-N 100 650MG Denaariel Araya RN DARVOCET-N 100 650MG 100mg, 11-22-2011 [facility] Sports One tablet by mouth three Medici ne and Orthopaedics times daily (27789) DARVOCET-N 100 650MG Sakshi Fiore DARVOCET-N 100 650MG 100mg, 11-22-2011 - 11-23-2011 [facility] Sports One tablet by mouth three Medici ne and Orthopaedics times daily (34524) DARVOCET-N 100 650MG Dena Araya RN DARVOCET-N 100 650MG 100mg, 11-22-2011 [facility] Sports One tablet by mouth three Medici ne and Orthopaedics times daily (67882) DARVOCET-N 100 650MG Sakshi Fiore diazePAM VALIUM 5 MG TABS 1 11-22-2011 - [facility] Medic al Center every 6 hrs as 05-21-2012 Sports Medici ne and needed Orthopaedi cs DIAZEPAM [id number] (04195) Sakshi Fiore esomeprazole esomeprazole 12-28-2015 Giles Hernández [facility] ter (NEXIUM) 40 mg [place] [facility] Medici ne and capsule Take 1 Orthopaedics capsule by mouth (77364) once daily. 30 capsule 4 12/28/2015 Active NEXIUM 40 MG CPDR One tablet 05-21-2012 - 07-10-2014 [facility] Sports by mouth daily as needed Medicin e and Orthopaedics (70529) ESOMEPRAZOLE MAGNESIUM [id number] Orlando Jacob MD NEXIUM 40 MG CPDR One tablet 11-22-2011 - 11-23-2011 [facility] Sports by mouth daily Medici ne and Orthopaedics ESOMEPRAZOLE (24987) MAGNESIUM [id number] Dena Araya RN NEXIUM 40 MG CPDR One tablet 11-22-2011 - 07-10-2014 [facility] Sports by mouth daily as needed Medicin e and Orthopaedics (89977) ESOMEPRAZOLE MAGNESIUM [id number] Orlando Jacob MD Comment: Take 1 capsule by mouth once daily. ezetimibe ZETIA 10 MG TABS One 07-17-2017 [facility] tablet by mouth (35183) daily EZETIMIBE [id number] Orlando Jacob MD fentaNYL FENTANYL 75 MCG/HR 11-22-2011 - [facility] Medic al Center PT72 Remove & 05-21-2012 Sports Medicin e and Reapply every 72 hrs Orthopa edics (46734) FENTANYL [id number] Orlando Jacob MD folic acid FOLIC ACID 400 MCG 11-23-2011 - [facility] TABS (0.4mg) One 05-21-2012 Sports Medi cine and tablet by mouth Orthopaedics (68385) daily FOLIC ACID [id number] Dena Araya RN gabapentin gabapentin 02-02-2015 Danya Peralta [facility] (NEURONTIN) 400 mg Sports Me dicine and capsule Take 1 Orthopaedics (94948) capsule by mouth three times daily. 0 02/02/2015 Active NEURONTIN 300 MG CAPS One 07-10-2014 [facility] Sports tablet by mouth three times Medi cine and Orthopaedics daily GABAPENTIN (446 91) [id number] Orlando Jacob MD NEURONTIN 300 MG CAPS 500 mg 07-10-2014 [facility] Sports three times a day Med icine and Orthopaedics GABAPENTIN [id number] (81213) Betsey Lindquist PA-C NEURONTIN 300 MG CAPS One 07-10-2014 [facility] by mouth three times Medi cine and Orthopaedics daily GABAPENTIN (446 91) [id number] Orlando Jacob MD NEURONTIN 300 MG CAPS 500 mg 07-10-2014 [facility] Sports three times a day Med icine and Orthopaedics GABAPENTIN [id number] (01569) Betsey Lindquist PA-C GABAPENTIN 800 MG TABS rolly 07-10-2014 [facility] Sports GABAPENTIN Medicine a nd Orthopaedics [phone] Benita Burt (47839) [place] NEURONTIN 800 MG TABS One 11-22-2011 - 12-24-2013 [facility] Sports tablet by mouth three times Medi cine and Orthopaedics daily (446 91) GABAPENTIN [id number] Betsey Lindquist PA-C Comment: Take 1 capsule by mouth thre e times daily. glatiramer COPAXONE 20 MG/ML KIT as 02-17-2014 - 01-06-2015 [facility] Sports directed Medicine and Orthopaedics GLATIRAMER ACETATE (16979) [id number] Betsey Lindquist PA-C COPAXONE 20 MG/ML KIT as 02-17-2014 - 01-06-2015 [facility] Sports directed Medicine and Orthopaedics GLATIRAMER ACETATE (82868) [id number] Betsey Lindquist PA-C COPAXONE 20 MG/ML KIT Subcu 11-22-2011 - 05-21-2012 [facility] Sports Injection daily Medic ine and Orthopaedics GLATIRAMER ACETATE (4 4691) [id number] Orlando Jacob MD COPAXONE 20 MG/ML KIT Subcu 11-22-2011 - 05-21-2012 [facility] Sports Injection daily Medic ine and Orthopaedics GLATIRAMER ACETATE (4 4691) [id number] Orlando Jacob MD magnesium oxide MAG-OXIDE 400 MG TABS 12-24-2013 - [facility] One tablet by mouth 07-11-2016 Sports M edicine and twice daily (takes as Orthop aedics (33723) needed) MAGNESIUM OXIDE Orlando Jacob MD melatonin MELATONIN 5 MG TABS One 02-28-2011 - [facility] tablet by mouth daily 01-11-2016 Sports Medicine and as needed at bedtime Orthopa edics (73858) MELATONIN [id number] Orlando Jacob MD Comment: Take 5 mg by mouth. As neede d nitroglycerin NITROSTAT 0.4 MG 02-17-2014 [facility]sey [facility] 1 tablet under [facility] tongue every 5 min Medicine and up to 3 X Orthopa edics NITROGLYCERIN (26479) [id number] Betsey Lindquist PA-C oxyCODONE oxyCODONE IR 12-26-2019 [facility] Provider [facility] (ROXICODONE) 10 mg (50798) tab pantoprazole PROTONIX 40 MG SOLR 07-12-2015 - [facility] Medi hung One tablet by mouth 07-13-2015 [facility] daily Medicine an d Orthopaedics PANTOPRAZOLE SODIUM (99324) [id number] Orlando Jacob MD potassium chloride KLOR-CON 20 MEQ PACK 11-23-2011 - [facility] One tablet by mouth 02-17-2014 [facility] daily Medicine an d POTASSIUM CHLORIDE Orthopaed ics [phone] Dena A (94617) Quiana LOYD pramipexole PRAMIPEXOLE 04-12-2017 - [facility] Medical DIHYDROCHLORIDE 0.25 07-17-2017 [facility] MG TABS 1-2 daily at Medicin e and night Orthopaedic s PRAMIPEXOLE (81371) DIHYDROCHLORIDE [id number] Benita Dreworelgianni predniSONE predniSONE 05-26-2020 [facility]ale ([employer] [facility] (DELTASONE) 20 mg [facility] (62525) tablet Take 1 tablet by mouth twice daily. 14 tablet 0 05/26/2020 Active Comment: Take 1 tablet by mouth twice daily. pregabalin LYRICA 50 MG CAPS One 12-24-2013 - 07-10-2014 [facility] Sports tablet by mouth daily Medici ne and Orthopaedics (76261 ) PREGABALIN [id number] Orlando Jacob MD raNITIdine RANITIDINE HCL 300 MG 11-23-2011 - 05-21-2012 [facility] Sports CAPS One tablet by mouth Med icine and Orthopaedics daily (76737) RANITIDINE HCL [id number] Orlando Jacob MD ZANTAC 75 TABS One tablet by mouth 11-22-2011 [facility] Sports Medicine daily RANITIDINE HCL TABS and Orthopaedics (61752) [id number] Sakshi Fiore ZANTAC 75 TABS One tablet by mouth 11-22-2011 [facility] Sports Medicine daily RANITIDINE HCL TABS and Orthopaedics (19339) [id number] Sakshi Fiore ZANTAC 75 TABS One tablet by mouth 11-22-2011 [facility] Sports Medicine daily RANITIDINE HCL TABS and Orthopaedics (07159) [id number] Sakshi Fiore ZANTAC 75 TABS One tablet by mouth 11-22-2011 [facility] Sports Medicine daily RANITIDINE HCL TABS and Orthopaedics (48823) [id number] Sakshi Anette Fiore ZANTAC 75 TABS One tablet by mouth 11-22-2011 [facility] Sports Medicine daily RANITIDINE HCL TABS and Orthopaedics (14659) [id number] Sakshi Anette Fiore ZANTAC 75 TABS One tablet by mouth 11-22-2011 [facility] Sports Medicine daily RANITIDINE HCL TABS and Orthopaedics (81522) [id number] [place] Anette Fiore rosuvastatin CRESTOR 5 MG TABS One 07-13-2015 - [facility] tablet by mouth daily 10-19-2015 [facility] Orthop aedics (39758) ROSUVASTATIN CALCIUM [id number] Jacque Quintero RN thyroxine LEVOTHYROXINE SODIUM 100 09-24-2013 [facility] MCG TABS One tablet by Sport s Medicine and mouth daily Ortho paedics (44578) LEVOTHYROXINE SODIUM [id number] Orlando Jacob MD LEVOTHYROXINE SODIUM 25 MCG 09-24-2013 [facility] Sports TABS One tablet by mouth Medicin e and Orthopaedics daily (51029) LEVOTHYROXINE SODIUM [id number] Orlando Jacob MD LEVOTHYROXINE SODIUM 50 MCG 09-24-2013 [facility] Sports TABS One tablet by mouth Medicin e and Orthopaedics daily (85416) LEVOTHYROXINE SODIUM [id number] Orlando Jacob MD LEVOTHYROXINE SODIUM 75 MCG 09-24-2013 [facility] Sports TABS One tablet by mouth Medicin e and Orthopaedics daily (94670) LEVOTHYROXINE SODIUM [id number] Orlando Jacob MD LEVOTHROID 25 MCG TABS One 11-23-2011 [facility] Sports tablet by mouth daily Medicine a ky Orthopaedics LEVOTHYROXINE (79249) SODIUM [id number] Dena Danielle Quiana RN LEVOTHROID 25 MCG TABS One 11-23-2011 [facility] Sports tablet by mouth daily Medicine a ky Orthopaedics LEVOTHYROXINE (91853) SODIUM [id number] Dena Danielle Quiana RN LEVOTHROID 25 MCG TABS One 11-23-2011 [facility] Sports tablet by mouth daily Medicine a ky Orthopaedics LEVOTHYROXINE (37017) SODIUM [id number] Dena Danielle Quiana RN LEVOTHROID 25 MCG TABS One 11-23-2011 [facility] Sports tablet by mouth daily Medicine a ky Orthopaedics LEVOTHYROXINE (51586) SODIUM [id number] Dena Danielle Quiana RN LEVOTHROID 25 MCG TABS One 11-23-2011 [facility] Sports tablet by mouth daily Medicine a ky Orthopaedics LEVOTHYROXINE (08567) SODIUM [id number] Dena Danielle Quiana RN LEVOTHROID 25 MCG TABS One 11-23-2011 [facility] tablet by mouth daily Medicine a ky Orthopaedics LEVOTHYROXINE (94661) SODIUM [id number] Dena A Quiana RN LEVOTHROID 25 MCG TABS One 11-23-2011 [facility] Sports tablet by mouth daily Medicine a ky Orthopaedics LEVOTHYROXINE (65922) SODIUM [id number] Dena Danielle Araya RN levothyroxine 25 mcg ORAL 08-23-2011 Adrián Nicholas (Hist) Brain [facility] Sports tablet Take 50 mcg by mouth Medi cine and Orthopaedics once daily. 0 08/23/2011 (97673) Active Comment: Take 50 mcg by mouth once da walker. tiZANidine ZANAFLEX 4 MG TABS One 11-22-2011 - 05-21-2011 [facility] Sports tablet by mouth every Medici ne and Orthopaedics evening (34045) TIZANIDINE HCL [id number] Orlando Jacob MD traMADol TRAMADOL HCL 50 MG TABS 02-17-2014 [facility] Sports One tablet by mouth four Med icine and Orthopaedics times daily (4469 1) TRAMADOL HCL [id number] Betsey Lindquist PA-C TRAMADOL HCL 50 MG TABS One 02-17-2014 - 01-11-2016 [facility] tablet by mouth three times Medi cine and Orthopaedics daily (446 91) TRAMADOL HCL [id number] Betsey Lindquist PA-C TRAMADOL HCL 50 MG TABS One 05-21-2012 - 12-24-2013 [facility] tablet by mouth every 4-6 Medici ne and Orthopaedics hours as needed (4469 1) TRAMADOL HCL [id number] Betsey Lindquist PA-C venlafaxine EFFEXOR XR [id number] 11-22-2011 - 05-21-2012 [facility] 25mg, One tablet by Sports M edicine and mouth twice daily Orthopaedi cs (70962) VENLAFAXINE HCL [id number] Orlando Jacob MD EFFEXOR XR [id number] 25mg, 11-22-2011 - 05-21-2012 [facility] One tablet by mouth twice Medici ne and Orthopaedics daily VENLAFAXINE (44 691) HCL [id number] Sakshi Fiore vitamin B 12 VITAMIN B-12 500 MCG TABS One 11-23-2011 [facility] tablet by mouth daily Medici ne and Orthopaedics CYANOCOBALAMIN (4 8853) [id number] Dena Araya RN Problems Active Problems Category Problem Name Status Date Location Adjustment disorders Adjustment disorder Active 10-06-2005 - [facility] with depressed mood (51602) Coronary Coronary Active 02-17-2014 - [facility] ter atherosclerosis and atherosclerosis Sport s Medicine and other heart disease Orthopae dics (41945) Disorders of lipid Hyperlipidemia Active 10-06-2005 - [facility] metabolism Sports Medicine and Orthopaedics (4 4691) Essential hypertension Hypertensive disorder Active 2 - [facility] Sports Medicine and Orthopaedics (4 4691) Heart valve disorders Mitral valve disorders Active 3 - [facility] Sports Medicine and Orthopaedics (4 4691) Immunizations and Contact with and Active [facility] screening for (suspected) exposure to (44 195) infectious disease other viral communicable diseases Multiple sclerosis Multiple sclerosis Active 10-06-2005 - [facility] Sports Medicine and Orthopaedics (4 4691) Nonmalignant breast Fibrocystic disease of Active 09-28-2009 - [facility] conditions breast (67042) Occlusion or stenosis Occlusion and stenosis Active 8 - [facility] of precerebral arteries of bilateral carotid [facility] arteries (06009) Other circulatory Disorder of carotid Active 11-22-2011 - [facility] disease artery Sports Medicine and Orthopaedics (4 4691) Other lower respiratory Cough Active [facility] disease (71231) Other nervous system Cubital tunnel syndrome Active 7 - [facility] disorders Sports Medicine and Orthopaedics (4 4691) Other skin disorders Disorder of integument Active [facility] (02594) Peripheral and visceral Peripheral vascular Active 07-13-2015 - [facility] atherosclerosis disease, unspecified Spor ts Medicine and Orthopaedics (4 4691) Spondylosis; Low back pain Active 04-16-2015 - [facility] nter intervertebral disc [facility] edicine and disorders; other back Orthop aedics (69091) problems Thyroid disorders Non-toxic uninodular Active 11-07-2005 - [facility] goiter (71577) Transient cerebral Transient cerebral Active 09-24-2013 - [facility] ischemia ischemia Sports Medicine and Orthopaedics (4 4691) Unclassified Unknown / UNK(Unknown) Active 12-23-2016 - [facility] (99713) Unclassified Long-term drug therapy Active 12-25-2014 - [facility] - 07-13-2015 Sports Medicine and - Orthopaedics (4 4691) Past or Other Problems Category Problem Name Status Date Location Biliary tract disease Gallstone Completed 12-05-2010 - [facility] (91011) Cardiac dysrhythmias Palpitations Completed 02-17-2014 - [facility] (4 4691) Fluid and electrolyte Hyperkalemia Completed 01-06-2015 - [facility] disorders Sports Medicine and Orthopaedics (4 4691) Nonspecific chest Chest pain, Completed 11-22-2011 [facility] pain unspecified Sports Medicine and Orthopaedics (4 4691) Other aftercare Long-term (current) Completed 12-25-2014 - [facility] use of other - 07-13-2015 Sports Medicine and medications - Orthopaedics (4 4691) Other connective Impingement syndrome Completed 06-21-2017 - [facility] tissue disease of shoulder region Sports Medicine and Orthopaedics (4 4691) Other non-traumatic Pain in left shoulder [facility] Sports Medic ine and Orthopaedics (4 4691) Other non-traumatic Knee pain Completed 04-12-2017 - [facility] joint disorders Sports Medic ine and Orthopaedics (4 4691) Other screening for Abnormal result of Completed 09-14-2009 - [facility] suspected conditions cardiovascular Sport s Medicine and (not mental disorders function study, Ort hopaedics (81238) or infectious unspecified disease) Residual codes; Family history of Completed 11-22-2011 - [facility] unclassified ischemic heart disease Sport s Medicine and Orthopaedics (4 4691) Residual codes; Family history of Completed [facility] unclassified stroke Sports Medicine and Orthopaedics (4 4691) Unclassified Family history of Completed 11-22-2011 [facility] ischemic heart disease Sport s Medicine and and other diseases of Orthop aedics (73243) the circulatory system Results Result Name Value Range Unit Interpretation Flag Date Location [facility] on 2020[facility]08[facility]02 [facility] Normal 08-02-2020 [facility] ANGÉLICA WALLER ([id number]) 1955 [facility] Time Provider Department ([id number]) 08/02/20 ALEXANDER REGALADO [facility] During your visit today, we recorded the following informati on about you: Valerie Moscoso Ma 08/02/2020 8:18 AM Signed ----- Message from Alexander Regalado sent at 08/02/2020 7:41 A M EDT ----- COVID test negative. Valerie Moscoso Ma 08/02/2020 8:18 AM Signed Patient given results and verbalized understanding of instru ctions given. Valerie Moscoso Ma Allergies As of Date: 08/02/2020 Noted Allergy Reaction AMITRIPTYLINE 03/12/2019 2 - Rash ANTIHISTAMINES 04/28/2004 Comments: messes her head up ASA (SALICYLATES) 12/04/2008 CODEINE 04/28/2004 Comments: nausea FENTANYL 02/19/2012 14 - Other: See Comments Comments: Sweating/ Flushing MORPHINE 04/28/2004 Comments: nausea and vomiting PLAVIX (CLOPIDOGREL BISULFATE) 12/18/2011 14 - Other: See Co mments Comments: Heartburn PREDNISONE 12/15/2008 Comments: Destroyed bone. [id number] REDUCTASE INHIBIT*04/27/2011 5 - Intolerance TRICOR (FENOFIBRATE MICRONIZED) 04/27/2011 5 - Intolerance Date Reviewed: 07/30/2020 Reviewed by: Valerie Moscoso Ma - Fully Assessed Reason for Visit: Results [95] Prescriptions as of 08/02/2020 Sig: ALBUTEROL SULFATE HFA 90 MCG/* Inhale 2 Puffs as instructed * PREDNISONE 20 MG TABLET Take 1 tablet by mouth twice * Patient not taking: Reported on 07/30/2020 OXYCODONE 10 MG TABLET AZITHROMYCIN 250 MG TABLET Take 1 tablet by mouth once d* Patient not taking: Reported on 01/07/2020 BENZONATATE 100 MG CAPSULE Take 2 capsules by mouth thre* Patient not taking: Reported on 01/07/2020 AMITRIPTYLINE 25 MG TABLET Take 25 mg by mouth daily at * BACLOFEN 40,000 MCG/20 ML (2,* 50 mcg by INTRATHECAL route f * HYDROCODONE 5 MG-ACETAMINOPHE* Take 1 tablet by mouth every * ESOMEPRAZOLE MAGNESIUM 40 MG * Take 1 capsule by mouth once * Patient not taking: Reported on 05/26/2020 CLOPIDOGREL 75 MG TABLET Take 1 tablet by mouth every * GABAPENTIN 400 MG CAPSULE Take 1 capsule by mouth three* Patient taking differently: Take 800 mg by mouth three ti* CALCIUM CARBONATE-VITAMIN D3 * Take by mouth twice daily. LEVOTHYROXINE 25 MCG TABLET Take 50 mcg by mouth once celia* MELATONIN 5 MG TABLET Take 5 mg by mouth. As needed* Problem List As Of Date 08/02/2020 Noted Resolved 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 [F43.21]10/06/2005 MULTIPLE SCLEROSIS [G35] 10/06/2005 HYPERLIPIDEMIA NEC/NOS [E78.5] 10/06/2005 THYROID NODULE NODULE, NONTOXIC (Left) [E04.1] 11/07/2005 Abnormal Mammogram, Unspecified [R92.8] 09/14/2009 Fibrocystic Disease of Breast [N60.19] 09/28/2009 Cholelithiasis NOS [K80.20] 12/05/2010 Acute cholecystitis [K81.0] 12/07/2010 History of adenomatous polyp of colon [Z86.010] 01/20/2016 0 01/20/2016 Chronic GERD [K21.9] 01/20/2016 01/20/2016 Carotid artery stenosis, asymptomatic [I65.29] Peripheral vascular occlusive disease (HCC) [I7* Encounter Status:Closed by VALERIE MOSCOSO MA on 08/02/20 xr chest 2v frontal/lat on 2020-07-30 XR CHEST 2V * * *Final Report* * * Normal 07-30 [facility] FRONTAL/LAT DATE OF EXAM: Jul 30 2020 1:27PM [place] WOX 5291 - XR CHEST 2V FRONTAL/LAT / ([id number]) PROCEDURE REASON: Cough * * * * Physician Interpretation * * * * EXAMINATION: CHEST RADIOGRAPH (2 VIEW FRONTAL and LATERAL) CLINICAL HISTORY: Cough MQ: [id number] EXAM DATE/TIME: 07/30/2020 1:27 PM COMPARISON: 05/26/2020 RESULT: The heart is normal in size. Linear atelectasis or s carring is again seen within the left lower lobe. There is no pleural e ffusion, pneumothorax, or pulmonary vascular redistribution. There is scoliosis, osteopenia, and multilevel degenerative change within the th oracic spine. IMPRESSION: Linear atelectasis or scarring is again seen wit hin left lower lobe. No acute pulmonary process is identified. Coil Finisher: PSCB Transcribe Date/Time: Jul 30 2020 1:28P Dictated by : TORO COPELAND MD This examination was interpreted and the report reviewed and electronically signed by: TORO COPELAND MD on Jul 30 2020 1:29PM EST [id number] progress on 2020-07 PROGRESS HNO ID: [id number] Normal 07-30-2020 [facility] Author: Lisbeth Gardner (Rt) [facility] ([id number]) Service: ? Author Type: Cooker Meal Type: Progress Notes Filed: 07/30/2020 1:27 PM Note Text: Radiology Service Progress Note PATIENT NAME: Angélica Waller DATE OF SERVICE: July 30, 2020 TIME: 1:27 PM PATIENT IDENTITY VERIFICATION COMPLETED USING TWO (2) IDENTI FIERS: Name and Date of confirmed by patient verbally. FALL SCREENING: Has the patient had 2 falls in the last year or 1 fall with injury or currently using an Ambulatory Assistive Devic e (Walker, Cane, Wheelchair, Crutches, etc.)? No PATIENT GENDER DATA: Female. status: : No status: NO. PATIENT RELEVANT IMPLANT DATA REVIEWED: Not Applicable RADIOLOGY DEPARTMENT: General X-ray: Exam(s) Completed: Ches t X-Ray PERIPHERAL IV DATA: Not applicable SIGNED BY: RT Radha July 30, 2020 1:27 PM PROGRESS HNO ID: [id number] Normal 07-30-2020 [facility] Author: Sophie Vera Gomez ([id number]) Service: ? Author Type: Nurse Practitioner Type: Progress Notes Filed: 07/30/2020 2:12 PM Note Text: Subjective HPI HPI Angélica Waller is a 65 year old female who presents tod ay for CC of cough, fever, diarrhea. This started few hours ago. Has trie d nothing for relief. Symptoms are worsened by nothing. Risk factors h x of MS and is long time smoker. Denies sore throat, body aches, loss sense taste/smell, sob. .Patient presents with: Cough: chest congestion, low grade fever x this am PAST MEDICAL HISTORY Diagnosis Date - Allergic rhinitis, cause unspecified - Bulging discs - Carotid artery stenosis, asymptomatic - Cervical spinal stenosis - Foot drop wears AFO - Multiple sclerosis (HCC) - Osteoporosis - Other psoriasis and similar disorders psoriatic arthritis - Peripheral vascular occlusive disease (HCC) - Scoliosis - TIA (transient ischemic attack) PAST SURGICAL HISTORY Procedure Laterality Date - BREAST BIOPSY X 2, left - BX BREAST PERC VACUUM/ROTN 09-24-09 BILAT - DELIVERY ONLY , low cervical - DELIVERY ONLY , low cervical - COLONOSCOP W/ OR W/O BRSH SPEC 01/20/16 Colonoscopy with mac - COLONOSCOPY - EGD W/O OR W/BRUSH/WASH 01/20/16 EGD - HEMORRHOID;BAND LIGAT, SNGL/MUL Hemorrhoidectomy - LAPAROSCOPIC CHOLEYCYSTECTOMY 12/06/10 Chronic - Dome Down - PAST SURGICAL HISTORY OF 03/2010 pain pump- removed 07/2011 - PLCMT LOCALZTN CLIP,PERC,DURING BREAST BX 09-24-09 BILAT - REMV LENS MATERIAL,PHACOFRAGMT Cataract Extraction - THYROID LOBECTOMY,UNILAT 11/30/2005 LEFT THYROID WITH ISTHMUTH - TOTAL ABDOM HYSTERECTOMY ALSO BILATERAL OOPHORECTOMY - TOTAL ABDOM HYSTERECTOMY Hysterectomy, CARLI ALLERGIES Amitriptyline, Antihistamines, Asa [Salicylates], Codeine, Fentanyl, Morphine, Plavix [Clopidogrel Bisulfate], Predniso ne, Kfgbgxy-Oyv-Phn Reductase Inhibitors, and Tricor [Fenofibrat e Micronized] MEDICATIONS albuterol HFA (VENTOLIN HFA) 90 mcg/actuation inhaler Inhale 2 Puffs as instructed every 4 hours as needed for Wheezing/Shortness of Breath. oxyCODONE IR (ROXICODONE) 10 mg tab amitriptyline (ELAVIL) 25 mg tablet Take 25 mg by mouth lopez y at bedtime. baclofen (GABLOFEN) 40,000 mcg/20mL (2,000 mcg/mL) injection 50 mcg by INTRATHECAL route four times daily. HYDROcodone-acetaminophen (NORCO) 5-325 mg per tablet Take 1 tablet by mouth every 6 hours as needed. clopidogrel (PLAVIX) 75 mg tablet Take 1 tablet by mouth marcial ry other day. gabapentin (NEURONTIN) 400 mg capsule Take 1 capsule by mout h three times daily. Calcium Carbonate-Vitamin D3 (VITAMIN D-3) 180-5,000 mg-unit Tab Take by mouth twice daily. levothyroxine 25 mcg ORAL tablet Take 50 mcg by mouth once d aily. Melatonin 5 mg ORAL Tab Take 5 mg by mouth. As needed predniSONE (DELTASONE) 20 mg tablet Take 1 tablet by mouth t wice daily. azithromycin (ZITHROMAX Z-RAMIRO) 250 mg tablet Take 1 tablet b y mouth once daily. benzonatate (TESSALON PERLE) 100 mg capsule Take 2 capsules by mouth three times daily as needed. esomeprazole (NEXIUM) 40 mg capsule Take 1 capsule by mouth once daily. FAMILY HISTORY Problem Relation Age of Onset - Hypertension Mother brain cancer - GI Father PASSED IN 81, FROM COMPLICATIONS OF AN AAA - other (GRAVES DISEASE) Sister Social History Tobacco Use - Smoking status: Current Every Day Smoker Packs/day: 0.50 Years: 10.00 Pack years: 5.00 - Smokeless tobacco: Never Used Substance Use Topics - Alcohol use: Not on file - Drug use: No ROS Objective Blood pressure 122/78, pulse 90, temperature 37.4 ?C (99.4 ? F), temperature source Tympanic, resp. rate 16, weight 61.7 kg ( 136 lb), SpO2 96 %. Exam minimized d/t covid 19 pandemic. Physical Exam Constitutional: She is oriented to person, place, and time a nd well-developed, well-nourished, and in no distress. Non-toxi c appearance. She does not have a sickly appearance. No distress. HENT: Head: Normocephalic and atraumatic. Cardiovascular: Normal rate, regular rhythm, S1 normal, S2 n ormal and normal heart sounds. Pulmonary/Chest: Effort normal and breath sounds normal. Neurological: She is alert and oriented to person, place, an d time. Gait normal. Skin: She is not diaphoretic. ASSESSMENT/PLAN: 1. Suspected COVID-19 virus infection - ICD9: , ICD10: Z20.8 28 (primary diagnosis) Push fluids, discussed otc medications Schedule f/u with pcp in 2-3 days -If you experience chest pain/shortness of breath go to ER -will test for covid 19 via [facility], call results 2. Cough - ICD9: 786.2, ICD10: R05 Discussed use of inhaler - XR CHEST 2V FRONTAL/LAT IMPRESSION: Linear atelectasis or scarring is again seen wit men left lower lobe. No acute pulmonary process is identified. ? Dictated by : TORO COPELAND MD Agrees to plan Sophie Vera APRN.CNP cnov on 2020-07-30 CNOV Office Visit ([facility]) Normal 07-30-20 [facility] ANGÉLICA WALLER ([id number]) 1955 [facility] Date Time Provider Department ([id number]) 07/30/20 1:00 PM SOPHIE VERA (MYA) WSTR During your visit today, we recorded the following informati on about you: Temperature Pulse Respiration Blood pressure 99.4 degrees 90/minute 16/minute 122/78 Weight 61.7 kg Sophie Vera APRN.CNP 07/30/2020 2:12 PM Signed Subjective HPI HPI Angélica Waller is a 65 year old female who presents today for CC of cough, fever, diarrhea. This started few hours ago. Has tried nothi ng for relief. Symptoms are worsened by nothing. Risk factors hx of MS and is long time smoker. Denies sore throat, body aches, loss sense taste/smell, sob. .Patient presents with: Cough: chest congestion, low grade fever x this am PAST MEDICAL HISTORY Diagnosis Date - Allergic rhinitis, cause unspecified - Bulging discs - Carotid artery stenosis, asymptomatic - Cervical spinal stenosis - Foot drop wears AFO - Multiple sclerosis (HCC) - Osteoporosis - Other psoriasis and similar disorders psoriatic arthritis - Peripheral vascular occlusive disease (HCC) - Scoliosis - TIA (transient ischemic attack) PAST SURGICAL HISTORY Procedure Laterality Date - BREAST BIOPSY X 2, left - BX BREAST PERC VACUUM/ROTN 09-24-09 BILAT - DELIVERY ONLY , low cervical - DELIVERY ONLY , low cervical - COLONOSCOP W/ OR W/O BRSH SPEC 01/20/16 Colonoscopy with mac - COLONOSCOPY - EGD W/O OR W/BRUSH/WASH 01/20/16 EGD - HEMORRHOID;BAND LIGAT, SNGL/MUL Hemorrhoidectomy - LAPAROSCOPIC CHOLEYCYSTECTOMY 12/06/10 Chronic - Dome Down - PAST SURGICAL HISTORY OF 03/2010 pain pump- removed 07/2011 - PLCMT LOCALZTN CLIP,PERC,DURING BREAST BX 09-24-09 BILAT - REMV LENS MATERIAL,PHACOFRAGMT Cataract Extraction - THYROID LOBECTOMY,UNILAT 11/30/2005 LEFT THYROID WITH ISTHMUTH - TOTAL ABDOM HYSTERECTOMY ALSO BILATERAL OOPHORECTOMY - TOTAL ABDOM HYSTERECTOMY Hysterectomy, CARLI ALLERGIES Amitriptyline, Antihistamines, Asa [Salicylates], Codeine, Fentanyl, Morphine, Plavix [Clopidogre l Bisulfate], Prednisone, Imjdzsg-Muo-Bma Reductase Inhibitors, and Tricor [Fenofibrate Micronized] MEDICATIONS albuterol HFA (VENTOLIN HFA) 90 mcg/actuation inhaler Inhale 2 Puffs as instructed every 4 hours as needed for Wheezing/Shortness of Breath. oxyCODONE IR (ROXICODONE) 10 mg tab amitriptyline (ELAVIL) 25 mg tablet Take 25 mg by mouth lopez y at bedtime. baclofen (GABLOFEN) 40,000 mcg/20mL (2,000 mcg/mL) injection 50 mcg by INTRATHECAL route four times daily. HYDROcodone-acetaminophen (NORCO) 5-325 mg per tablet Take 1 tablet by mouth every 6 hours as needed. clopidogrel (PLAVIX) 75 mg tablet Take 1 tablet by mouth marcial ry other day. gabapentin (NEURONTIN) 400 mg capsule Take 1 capsule by mout h three times daily. Calcium Carbonate-Vitamin D3 (VITAMIN D- 3) 180-5,000 mg-unit Tab Take by mouth twice daily. levothyroxine 25 mcg ORAL tablet Take 50 mcg by mouth once d aily. Melatonin 5 mg ORAL Tab Take 5 mg by mouth. As needed predniSONE (DELTASONE) 20 mg tablet Take 1 tablet by mouth t wice daily. azithromycin (ZITHROMAX Z-PA K) 250 mg tablet Take 1 tablet by mouth once daily. benzonatate (TESSALON PERLE) 100 mg capsule Take 2 capsules by mouth three times daily as needed. esomeprazole (NEXIUM) 40 mg capsule Take 1 capsule by mouth once daily. FAMILY HISTORY Problem Relation Age of Onset - Hypertension Mother brain cancer - GI Father PASSED IN 81, FROM COMPLICATIONS OF AN AAA - other (GRAVES DISEASE) Sister Social History Tobacco Use - Smoking status: Current Every Day Smoker Packs/day: 0.50 Years: 10.00 Pack years: 5.00 - Smokeless tobacco: Never Used Substance Use Topics - Alcohol use: Not on file - Drug use: No ROS Objective Blood pressure 122/78, pulse 90, temperature 37.4 ?C (99.4 ?F), temperature source Tympanic, resp. rate 16, weight 61.7 kg (136 lb), SpO 2 96 %. Exam minimized d/t covid 19 pandemic. Physical Exam Constitutional: She is oriented to perso n, place, and time and well-developed, well-nourished, and in no distress. Non-toxic ap pearance. She does not have a sickly appearance. No distress. HENT: Head: Normocephalic and atraumatic. Cardiovascular: Normal rate, regular rhythm, S1 normal , S2 normal and normal heart sounds. Pulmonary/Chest: Effort normal and breath sounds normal. Neurological: She is alert and oriented to person, place, an d time. Gait normal. Skin: She is not diaphoretic. ASSESSMENT/PLAN: 1. Suspected COVID-19 virus infection - ICD9: , ICD10: Z20.8 28 (primary diagnosis) Push fluids, discussed otc medications Schedule f/u with pcp in 2-3 days -If you experience chest pain/shortness of breath go to ER -will test for covid 19 via [facility], call results 2. Cough - ICD9: 786.2, ICD10: R05 Discussed use of inhaler - XR CHEST 2V FRONTAL/LAT IMPRESSION: Linear atelectasis or scarring is again seen wit hin left lower lobe. No acute pulmonary process is identified. ? Dictated by : TORO COPELAND MD Agrees to plan Sophie Vera APRN.WEAVE ROOM SUPERVISOR Referring Provider: SELF [[id number]] Allergies As of Date: 07/30/2020 Noted Allergy Reaction AMITRIPTYLINE 03/12/2019 2 - Rash ANTIHISTAMINES 04/28/2004 Comments: messes her head up ASA (SALICYLATES) 12/04/2008 CODEINE 04/28/2004 Comments: nausea FENTANYL 02/19/2012 14 - Other: See Comments Comments: Sweating/ Flushing MORPHINE 04/28/2004 Comments: nausea and vomiting PLAVIX (CLOPIDOGREL BISULFATE) 12/18/2011 14 - Other: See Co mments Comments: Heartburn PREDNISONE 12/15/2008 Comments: Destroyed bone. [id number]-[id number] REDUCTASE INHIBIT*04/27/2011 5 - Intolerance TRICOR (FENOFIBRATE MICRONIZED) 04/27/2011 5 - Intolerance Date Reviewed: 07/30/2020 Reviewed by: Valerie Moscoso Ma - Fully Assessed Reason for Visit: Cough [28] Cmt: chest congestion, low grade fever x this am Primary Visit Diagnosis:Suspected COVID-19 virus infection [ Z20.828] Other Visit Diagnosis:Cough [R05] Order(s):XR CHEST 2V FRONTAL/LAT [[id number]] Order #: [id number]. #:[id number] CORONAVIRUS [SQCOVID] Order #: [id number] Prescriptions as of 07/30/2020 Sig: ALBUTEROL SULFATE HFA 90 MCG/* Inhale 2 Puffs as instructed * OXYCODONE 10 MG TABLET AMITRIPTYLINE 25 MG TABLET Take 25 mg by mouth daily at * BACLOFEN 40,000 MCG/20 ML (2,* 50 mcg by INTRATHECAL route f * HYDROCODONE 5 MG-ACETAMINOPHE* Take 1 tablet by [...] Take 5 mg by mouth. As needed* PREDNISONE 20 MG TABLET Take 1 tablet by mouth twice * Patient not taking: Reported on 07/30/2020 AZITHROMYCIN 250 MG TABLET Take 1 tablet by mouth once d* Patient not taking: Reported on 01/07/2020 BENZONATATE 100 MG CAPSULE Take 2 capsules by mouth thre* Patient not taking: Reported on 01/07/2020 ESOMEPRAZOLE MAGNESIUM 40 MG * Take 1 capsule by mouth once * Patient not taking: Reported on 05/26/2020 Problem List As Of Date 07/30/2020 Noted Resolved 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 [F43.21]10/06/2005 MULTIPLE SCLEROSIS [G35] 10/06/2005 HYPERLIPIDEMIA NEC/NOS [E78.5] 10/06/2005 THYROID NODULE NODULE, NONTOXIC (Left) [E04.1] 11/07/2005 Abnormal Mammogram, Unspecified [R92.8] 09/14/2009 Fibrocystic Disease of Breast [N60.19] 09/28/2009 Cholelithiasis NOS [K80.20] 12/05/2010 Acute cholecystitis [K81.0] 12/07/2010 History of adenomatous polyp of colon [Z86.010] 01/20/2016 0 01/20/2016 Chronic GERD [K21.9] 01/20/2016 01/20/2016 Carotid artery stenosis, asymptomatic [I65.29] Peripheral vascular occlusive disease (HCC) [I7* Encounter Status:Closed by SOPHIE VERA CNP on 07/30/20 No panel information on 2020-07-30 [facility] ([id number]) xr chest 2v frontal/lat on 2020-05-26 XR CHEST 2V * * *Final Report* * * Normal 05-26 [facility] FRONTAL/LAT DATE OF EXAM: May 26 2020 1:58PM [place] [facility] [id number] - XR CHEST 2V FRONTAL/LAT / ([id number]) PROCEDURE REASON: Cough * * * * Physician Interpretation * * * * EXAMINATION: CHEST RADIOGRAPH (2 VIEW FRONTAL and LATERAL) CLINICAL HISTORY: Cough MQ: [id number] EXAM DATE/TIME: 05/26/2020 1:58 PM COMPARISON: 08/15/2019 RESULT: Lines, tubes, and devices: None. Lungs and pleura: No consolidation. No lung mass. No pleural effusion. No pneumothorax. Cardiomediastinal silhouette: Normal cardiomediastinal silho uette. Bones and soft tissues: Unremarkable. IMPRESSION: No acute radiographic abnormality. Coil Finisher: PSCB Transcribe Date/Time: May 26 2020 2:04P Dictated by : RAMSES BARBER MD This examination was interpreted and the report reviewed and electronically signed by: RAMSES BARBER MD on May 26 2020 2:04PM EST [id number] progress on 2020-05 PROGRESS HNO ID: [id number] Normal 05-26-2020 [facility] Author: Lisbeth DonahueRtDamaris Luna [place] ([id number]) Service: ? Author Type: Cooker Meal Type: Progress Notes Filed: 05/26/2020 1:58 PM Note Text: Radiology Service Progress Note PATIENT NAME: Angélica Waller DATE OF SERVICE: May 26, 2020 TIME: 1:58 PM PATIENT IDENTITY VERIFICATION COMPLETED USING TWO (2) IDENTI FIERS: Name and Date of confirmed by patient verbally. FALL SCREENING: Has the patient had 2 falls in the last year or 1 fall with injury or currently using an Ambulatory Assistive Devic e (Walker, Cane, Wheelchair, Crutches, etc.)? No PATIENT GENDER DATA: Female. status: : No status: NO. PATIENT RELEVANT IMPLANT DATA REVIEWED: Not Applicable RADIOLOGY DEPARTMENT: General X-ray: Exam(s) Completed: Ches t X-Ray PERIPHERAL IV DATA: Not applicable SIGNED BY: RT Radha May 26, 2020 1:58 PM PROGRESS HNO ID: [id number] Normal 05-26-2020 [facility] Author: Gale DonahueSchool Cafeteria Cook HeadCharles [facility] ([id number] Service: ? Author Type: Nurse Practitioner Type: Progress Notes Filed: 05/26/2020 7:50 PM Note Text: Subjective 64 year old female with PMH hyperlipidemia, MS, thyroid nodu le presents with complaints of feel like I can't get a good breath in [place] that this has been on going for approximately one w [place]. +productive clear sputum. States she feels tightness can't take a deep breath No fever or chills. Denies known exposure to COVID. Patient endorses home health aid had noted crackles in my lungs. S he endorses history of tobacco usage and also medical marijuana for her MS. She denies history of diagnosed COPD. Denies factors that seem to allev iate. Denies factors that seem to exacerbate. The history is provided by the patient. No language interpre ter was used. Cough This is a new problem. The current episode started more than 1 week ago. The problem occurs constantly. The problem has not changed s nessa onset.The cough is productive of sputum. There has been no fever. Asso ciated symptoms include rhinorrhea and shortness of breath. Pertine nt negatives include no chest pain, no chills, no sweats, no weight loss, no ear congestion, no ear pain, no headaches, no sore throat, no my algias, no wheezing and no eye redness. She has tried nothing for the s ymptoms. She is a smoker. Her past medical history is significant for bro nchitis. Her past medical history does not include pneumonia, bronchiecta sis, COPD, emphysema or asthma. PAST MEDICAL HISTORY Diagnosis Date - Allergic rhinitis, cause unspecified - Bulging discs - Carotid artery stenosis, asymptomatic - Cervical spinal stenosis - Foot drop wears AFO - Multiple sclerosis (HCC) - Osteoporosis - Other psoriasis and similar disorders psoriatic arthritis - Peripheral vascular occlusive disease (HCC) - Scoliosis - TIA (transient ischemic attack) PAST SURGICAL HISTORY Procedure Laterality Date - BREAST BIOPSY X 2, left - BX BREAST PERC VACUUM/ROTN 09-24-09 BILAT - DELIVERY ONLY , low cervical - DELIVERY ONLY , low cervical - COLONOSCOP W/ OR W/O BRSH SPEC 01/20/16 Colonoscopy with mac - COLONOSCOPY - EGD W/O OR W/BRUSH/WASH 01/20/16 EGD - HEMORRHOID;BAND LIGAT, SNGL/MUL Hemorrhoidectomy - LAPAROSCOPIC CHOLEYCYSTECTOMY 12/06/10 Chronic - Dome Down - PAST SURGICAL HISTORY OF 03/2010 pain pump- removed 07/2011 - PLCMT LOCALZTN CLIP,PERC,DURING BREAST BX 09-24-09 BILAT - REMV LENS MATERIAL,PHACOFRAGMT Cataract Extraction - THYROID LOBECTOMY,UNILAT 11/30/2005 LEFT THYROID WITH ISTHMUTH - TOTAL ABDOM HYSTERECTOMY ALSO BILATERAL OOPHORECTOMY - TOTAL ABDOM HYSTERECTOMY Hysterectomy, CARLI ALLERGIES Amitriptyline; Antihistamines; Asa [Salicylates]; Codeine; Fentanyl; Morphine; Plavix [Clopidogrel Bisulfate]; Predniso ne; Ygnhbjk-Vey-Jxl Reductase Inhibitors; Tricor [Fenofibrate Mi cronized] MEDICATIONS oxyCODONE IR (ROXICODONE) 10 mg tab baclofen (GABLOFEN) 40,000 mcg/20mL (2,000 mcg/mL) injection 50 mcg by INTRATHECAL route four times daily. clopidogrel (PLAVIX) 75 mg tablet Take 1 tablet by mouth marcial ry other day. gabapentin (NEURONTIN) 400 mg capsule Take 1 capsule by mout h three times daily. Calcium Carbonate-Vitamin D3 (VITAMIN D-3) 180-5,000 mg-unit Tab Take by mouth twice daily. Melatonin 5 mg ORAL Tab Take 5 mg by mouth. As needed albuterol HFA (VENTOLIN HFA) 90 mcg/actuation inhaler Inhale 2 Puffs as instructed every 4 hours as needed for Wheezing/Shortness of Breath. predniSONE (DELTASONE) 20 mg tablet Take 1 tablet by mouth t wice daily. doxycycline monohydrate 100 mg tablet Take 1 tablet by mouth twice daily for 10 days. azithromycin (ZITHROMAX Z-RAMIRO) 250 mg tablet Take 1 tablet b y mouth once daily. benzonatate (TESSALON PERLE) 100 mg capsule Take 2 capsules by mouth three times daily as needed. amitriptyline (ELAVIL) 25 mg tablet Take 25 mg by mouth lopez y at bedtime. HYDROcodone-acetaminophen (NORCO) 5-325 mg per tablet Take 1 tablet by mouth every 6 hours as needed. esomeprazole (NEXIUM) 40 mg capsule Take 1 capsule by mouth once daily. levothyroxine 25 mcg ORAL tablet Take 50 mcg by mouth once d aily. FAMILY HISTORY Problem Relation Age of Onset - Hypertension Mother brain cancer - GI Father PASSED IN 81, FROM COMPLICATIONS OF AN AAA - other (GRAVES DISEASE) Sister Social History Tobacco Use - Smoking status: Current Every Day Smoker Packs/day: 0.50 Years: 10.00 Pack years: 5.00 - Smokeless tobacco: Never Used Substance Use Topics - Alcohol use: Not on file - Drug use: No Review of Systems Constitutional: Negative for chills, fever, malaise/fatigue and weight loss. HENT: Positive for rhinorrhea. Negative for congestion, ear discharge, ear pain, nosebleeds, sinus pain and sore throat. Eyes: Negative for redness. Respiratory: Positive for cough, sputum production and short ness of breath. Negative for hemoptysis and wheezing. Cardiovascular: Negative for chest pain, palpitations, ortho pnea and claudication. Gastrointestinal: Negative for abdominal pain, diarrhea, jono sea and vomiting. Musculoskeletal: Negative for back pain, myalgias and neck p ain. Skin: Negative for itching and rash. Neurological: Negative for headaches. Endo/Heme/Allergies: Negative for environmental allergies an d polydipsia. Does not bruise/bleed easily. Psychiatric/Behavioral: Negative for depression and suicidal ideas. Objective Physical Exam Constitutional: She is oriented to person, place, and time a nd well-developed, well-nourished, and in no distress. HENT: Head: Normocephalic and atraumatic. Right Ear: External ear normal. Left Ear: External ear normal. Mouth/Throat: Oropharynx is clear and moist. Eyes: Pupils are equal, round, and reactive to light. Conjun ctivae and EOM are normal. Right eye exhibits no discharge. Left eye exhibi ts no discharge. No scleral icterus. Neck: Normal range of motion. Neck supple. No tracheal devia tion present. No thyromegaly present. Cardiovascular: Normal rate, regular rhythm and normal heart sounds. Exam reveals no gallop and no friction rub. No murmur heard. Pulmonary/Chest: Effort normal. No respiratory distress. She has wheezes (scant expiratory wheezing and rhonchi noted that clear with coughing). She has no rales. She exhibits no tenderness. Abdominal: Soft. Bowel sounds are normal. She exhibits no di stension. There is no abdominal tenderness. Musculoskeletal: Normal range of motion. General: No tenderness, deformity or edema. Lymphadenopathy: She has no cervical adenopathy. Neurological: She is alert and oriented to person, place, an d time. GCS score is 15. Skin: Skin is warm and dry. No rash noted. No erythema. No p allor. Psychiatric: Mood, affect and judgment normal. Nursing note and vitals reviewed. ASSESSMENT/PLAN: 1. Cough - ICD9: 786.2, ICD10: R05 (primary diagnosis) - XR CHEST 2V FRONTAL/LAT-negative for acute fracture or dis location Talking complete sentences. No diaphoreses Hemodynamically stable. No SOB presently Denies COVID exposure RX ProAir, Prednisone, Doxycyline. 2. Bronchitis - ICD9: 490, ICD10: J40 - XR CHEST 2V FRONTAL/LAT-negative for acute fracture or dis location Talking complete sentences. No diaphoreses Hemodynamically stable. No SOB presently Denies COVID exposure RX ProAir, Prednisone, Doxycyline. 3. Tobacco abuse - ICD9: 305.1, ICD10: Z72.0 - Cessation encouraged. - Physiologic and physical aspects of tobacco addiction as w ell as strategies for quitting were discussed. - Counseling was given focusing on the harmful effects of th is addiction especially given the patient's medical condition(s) which wi ll be worsened because of the chemicals in tobacco. - Counseling was given 3-4 minutes. - Recommended to called 1-800-QUIT NOW DIVYA Duckworth on 2020-05-26 CNOV Office Visit (UCWSTR) Normal 05-26-20 [facility] ANGÉLICA WALLER ([id number]) 1955 [facility] Date Time Provider Department ([id number]) 05/26/20 1:30 PM GALE CAPUTO (MYA) WS During your visit today, we recorded the following informati on about you: Temperature Pulse Respiration Blood pressure 99 degrees 78/minute 16/minute 132/78 Weight 61.2 kg Gale Caputo APRN.CNP 05/26/2020 7:50 PM Signed Subjective 64 year old female with PMH hyperlipidemia, MS, thyroi d nodule presents with complaints of feel like I can't get a good breath in [place] that this has been on going for approximately one week. +productive clear sputum. States she fee ls tightness can't take a deep breath No fever or chills. Denies known exposure to COVID. Patient endors es home health aid had noted crackles in my lungs. She endorses history of tobacco usage and also medical marijuana for her MS. She denies history of diagnose d COPD. Denies factors that seem to alleviate. Denies factors that seem to exacerbate. The history is provided by the patient. No language interpre ter was used. Cough This is a new problem. The current episode started mor e than 1 week ago. The problem occurs constantly. T he problem has not changed since onset.The cough is productive of sputum. There has been no fever. Associated sy mptoms include rhinorrhea and shortness of breath. Pert inent negatives include no chest pain, no chills, no sweats, no weight loss, no ear congestion, no ear pain, no headaches, no sore throat, n o myalgias, no wheezing and no eye redness. She has tried nothing for the symptoms. She is a smoker. Her p ast medical history is significant for bronchitis. Her past medical history does no t include pneumonia, bronchiectasis, COPD, emphysema or asthma. PAST MEDICAL HISTORY Diagnosis Date - Allergic rhinitis, cause unspecified - Bulging discs - Carotid artery stenosis, asymptomatic - Cervical spinal stenosis - Foot drop wears AFO - Multiple sclerosis (HCC) - Osteoporosis - Other psoriasis and similar disorders psoriatic arthritis - Peripheral vascular occlusive disease (HCC) - Scoliosis - TIA (transient ischemic attack) PAST SURGICAL HISTORY Procedure Laterality Date - BREAST BIOPSY X 2, left - BX BREAST PERC VACUUM/ROTN 09-24-09 BILAT - DELIVERY ONLY , low cervical - DELIVERY ONLY , low cervical - COLONOSCOP W/ OR W/O BRSH SPEC 01/20/16 Colonoscopy with mac - COLONOSCOPY - EGD W/O OR W/BRUSH/WASH 01/20/16 EGD - HEMORRHOID;BAND LIGAT, SNGL/MUL Hemorrhoidectomy - LAPAROSCOPIC CHOLEYCYSTECTOMY 12/06/10 Chronic - Dome Down - PAST SURGICAL HISTORY OF 03/2010 pain pump- removed 07/2011 - PLCMT LOCALZTN CLIP,PERC,DURING BREAST BX 09-24-09 BILAT - REMV LENS MATERIAL,PHACOFRAGMT Cataract Extraction - THYROID LOBECTOMY,UNILAT 11/30/2005 LEFT THYROID WITH ISTHMUTH - TOTAL ABDOM HYSTERECTOMY ALSO BILATERAL OOPHORECTOMY - TOTAL ABDOM HYSTERECTOMY Hysterectomy, CARLI ALLERGIES Amitriptyline; Antihistamines; Asa [Salicylates]; Codeine; Fentanyl; Morphine; Plavix [Clopidogre l Bisulfate]; Prednisone; Ufkbxcu-Ztv-Rvr Reductase Inhibitors; Tricor [Fenofibrate Micronized] MEDICATIONS oxyCODONE IR (ROXICODONE) 10 mg tab baclofen (GABLOFEN) 40,000 mcg/20mL (2,000 mcg/mL) injection 50 mcg by INTRATHECAL route four times daily. clopidogrel (PLAVIX) 75 mg tablet Take 1 tablet by mouth marcial ry other day. gabapentin (NEURONTIN) 400 mg capsule Take 1 capsule by mout h three times daily. Calcium Carbonate-Vitamin D3 (VITAMIN D- 3) 180-5,000 mg-unit Tab Take by mouth twice daily. Melatonin 5 mg ORAL Tab Take 5 mg by mouth. As needed albuterol HFA (VENTOLIN HFA) 90 mcg/actuation inhaler Inhale 2 Puffs as instructed every 4 hours as needed for Wheezing/Shortness of Breath. predniSONE (DELTASONE) 20 mg tablet Take 1 tablet by mouth t wice daily. doxycycline monohydrate 100 mg tablet Take 1 tablet by mouth twice daily for 10 days. azithromycin (ZITHROMAX Z-PA K) 250 mg tablet Take 1 tablet by mouth once daily. benzonatate (TESSALON PERLE) 100 mg capsule Take 2 capsules by mouth three times daily as needed. amitriptyline (ELAVIL) 25 mg tablet Take 25 mg by mouth lopez y at bedtime. HYDROcodone-acetaminophen (NORCO) 5-325 mg per tablet Take 1 tablet by mouth every 6 hours as needed. esomeprazole (NEXIUM) 40 mg capsule Take 1 capsule by mouth once daily. levothyroxine 25 mcg ORAL tablet Take 50 mcg by mouth once d aily. FAMILY HISTORY Problem Relation Age of Onset - Hypertension Mother brain cancer - GI Father PASSED IN 81, FROM COMPLICATIONS OF AN AAA - other (GRAVES DISEASE) Sister Social History Tobacco Use - Smoking status: Current Every Day Smoker Packs/day: 0.50 Years: 10.00 Pack years: 5.00 - Smokeless tobacco: Never Used Substance Use Topics - Alcohol use: Not on file - Drug use: No Review of Systems Constitutional: Negative for chills, fever, malaise/fa tigue and weight loss. HENT: Positive for rhinorrhea. Negative for congestion, ear discharge, ear pain, nosebleeds, sinus pain and sore throat. Eyes: Negative for redness. Respiratory: Positive for cough, sputum production and kristen rtness of breath. Negative for hemoptysis and wheezing. Cardiovascular: Negative for chest pain, palpitations, ortho pnea and claudication. Gastrointestinal: Negative for abdominal pain, d iarrhea, nausea and vomiting. Musculoskeletal: Negative for back pain, myalgias and neck p ain. Skin: Negative for itching and rash. Neurological: Negative for headaches. Endo/Heme/Allergies: Negative for enviro nmental allergies and polydipsia. Does not bruise/bleed easily. Psychiatric/Behavioral: Negative for depression and suicidal ideas. Objective Physical Exam Constitutional: She is oriented to perso n, place, and time and well-developed, well-nourished, and in no distress. HENT: Head: Normocephalic and atraumatic. Right Ear: External ear normal. Left Ear: External ear normal. Mouth/Throat: Oropharynx is clear and moist. Eyes: Pupils are equal, round, and react lluvia to light. Conjunctivae and EOM are normal. Right eye exhibits no discharge. Left eye exhibits no discharge. No scleral icterus. Neck: Normal range of motion. Neck supple. No tracheal deviation present. No thyromegaly present. Cardiovascular: Normal rate, regular rhythm and normal heart sounds. Exam reveals no gallop and no friction rub. No murmur heard. Pulmonary/Chest: Effort norm al. No respiratory distress. She has wheezes (scant expiratory wheezing and rhonchi noted that clear with coug laura). She has no rales. She exhibits no tenderness. Abdominal: Soft. Bowel sounds are normal . She exhibits no distension. There is no abdominal tenderness. Musculoskeletal: Normal range of motion. General: No tenderness, deformity or edema. Lymphadenopathy: She has no cervical adenopathy. Neurological: She is alert and oriented to perso n, place, and time. GCS score is 15. Skin: Skin is warm and dry. No rash noted. No erythema. No p allor. Psychiatric: Mood, affect and judgment normal. Nursing note and vitals reviewed. ASSESSMENT/PLAN: 1. Cough - ICD9: 786.2, ICD10: R05 (primary diagnosis) - XR CHEST 2V FRONTAL/LAT-negative for acute fracture or dis location Talking complete sentences. No diaphoreses Hemodynamically stable. No SOB presently Denies COVID exposure RX ProAir, Prednisone, Doxycyline. 2. Bronchitis - ICD9: 490, ICD10: J40 - XR CHEST 2V FRONTAL/LAT-negative for acute fracture or dis location Talking complete sentences. No diaphoreses Hemodynamically stable. No SOB presently Denies COVID exposure RX ProAir, Prednisone, Doxycyline. 3. Tobacco abuse - ICD9: 305.1, ICD10: Z72.0 - Cessation encouraged. - Physiologic and physical aspects of tobacco ad diction as well as strategies for quitting were discussed. - Counseling was given focusing on the harmful effects of th is addiction especially given the patient's medical condition(s) which wi ll be worsened because of the chemicals in tobacco. - Counseling was given 3-4 minutes. - Recommended to called 1-800-QUIT NOW Gale Caputo APRN.MYA Caputo APRN.CNP 05/26/2020 2:20 PM Signed ACUTE BRONCHITIS: You have acute bronchitis. This means the airway passages in your lungs are inflamed. Bronchitis may be caused by viruses or bacteria. Inhaling cigarette smoke will always make it worse. Exposure to irritating ch emicals or second hand smoke as well as allergies can contribute t o bronchitis. Repeat episodes of bronchitis may cause lifelong lung problems. Acute bronchitis is usually treated with rest, fluids, cough medicine, and possibly antibiotics or inhaled medicine to open up th e small airways. It is very important that you avoid smoke and drink increase d amounts of fluids. A cool air vaporizer can help thin bronchi al secretions. This makes it easier to cough and clear your chest. If you are a cigarette smoker, c onsider using nicotine gum or skin patches to help you withdraw. Recovery from bronchitis is often slow, but you should sta rt feeling better after 2-3 days of treatment. Please call your doctor or retu rn here if you have any of the following symptoms: - Increased fever, chills, or chest pain. - Severe shortness of breath or bloody sputum. - Do not improve after 3 days of proper treatment. Referring Provider: SELF [[id number]] Allergies As of Date: 05/26/2020 Noted Allergy Reaction AMITRIPTYLINE 03/12/2019 2 - Rash ANTIHISTAMINES 04/28/2004 Comments: messes her head up ASA (SALICYLATES) 12/04/2008 CODEINE 04/28/2004 Comments: nausea FENTANYL 02/19/2012 14 - Other: See Comments Comments: Sweating/ Flushing MORPHINE 04/28/2004 Comments: nausea and vomiting PLAVIX (CLOPIDOGREL BISULFATE) 12/18/2011 14 - Other: See Co mments Comments: Heartburn PREDNISONE 12/15/2008 Comments: Destroyed bone. VALVHXR-NCI-MOM REDUCTASE INHIBIT*04/27/2011 5 - Intolerance TRICOR (FENOFIBRATE MICRONIZED) 04/27/2011 5 - Intolerance Date Reviewed: 05/26/2020 Reviewed by: Valerie Moscoso Ma - Fully Assessed Reason for Visit: Cough [28] Cmt: shortness of breath x 1 week Primary Visit Diagnosis:Cough [R05] Other Visit Diagnoses:Bronchitis [J40] Tobacco abuse [Z72.0] Order(s):XR CHEST 2V FRONTAL/LAT [[id number]] Order #: [id number] FUTURE albuterol HFA (VENTOLIN HFA) 90 mcg/actuation inhalerInhale 2 Puffs as instructed every 4 hours as needed for Wheezing/Shortness of Breath.Disp: 1 InhalerRfl: 0 predniSONE (DELTASONE) 20 mg tabletTake 1 tablet by mouth tw ice daily.Disp: 14 tabletRfl: 0 doxycycline monohydrate 100 mg tabletTake 1 tablet by mouth twice daily for 10 days.Disp: 20 tabletRfl: 0 Prescriptions as of 05/26/2020 Sig: OXYCODONE 10 MG TABLET BACLOFEN 40,000 MCG/20 ML (2,* 50 mcg by INTRATHECAL route f * CLOPIDOGREL 75 MG TABLET Take 1 tablet by mouth every * GABAPENTIN 400 MG CAPSULE Take 1 capsule by mouth three* Patient taking differently: Take 800 mg by mouth three ti* CALCIUM CARBONATE-VITAMIN D3 * Take by mouth twice daily. MELATONIN 5 MG TABLET Take 5 mg by mouth. As needed* ALBUTEROL SULFATE HFA 90 MCG/* Inhale 2 Puffs as instructed * PREDNISONE 20 MG TABLET Take 1 tablet by mouth twice * DOXYCYCLINE MONOHYDRATE 100 M* Take 1 tablet by mouth twice * AZITHROMYCIN 250 MG TABLET Take 1 tablet by mouth once d* Patient not taking: Reported on 01/07/2020 BENZONATATE 100 MG CAPSULE Take 2 capsules by mouth thre* Patient not taking: Reported on 01/07/2020 AMITRIPTYLINE 25 MG TABLET Take 25 mg by mouth daily at * HYDROCODONE 5 MG-ACETAMINOPHE* Take 1 tablet by mouth every * ESOMEPRAZOLE MAGNESIUM 40 MG * Take 1 capsule by mouth once * Patient not taking: Reported on 05/26/2020 LEVOTHYROXINE 25 MCG TABLET Take 50 mcg by mouth once celia* Problem List As Of Date 05/26/2020 Noted Resolved 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 [F43.21]10/06/2005 MULTIPLE SCLEROSIS [G35] 10/06/2005 HYPERLIPIDEMIA NEC/NOS [E78.5] 10/06/2005 THYROID NODULE NODULE, NONTOXIC (Left) [E04.1] 11/07/2005 Abnormal Mammogram, Unspecified [R92.8] 09/14/2009 Fibrocystic Disease of Breast [N60.19] 09/28/2009 Cholelithiasis NOS [K80.20] 12/05/2010 Acute cholecystitis [K81.0] 12/07/2010 History of adenomatous polyp of colon [Z86.010] 01/20/2016 0 01/20/2016 Chronic GERD [K21.9] 01/20/2016 01/20/2016 Carotid artery stenosis, asymptomatic [I65.29] Peripheral vascular occlusive disease (HCC) [I7* Other instructions from your clinician: ACUTE BRONCHITIS: You have acute bronchitis. This means the airway passages in your lungs are inflamed. Bronchitis may be caused by viruses or bacteri a. Inhaling cigarette smoke will always make it worse. Exposure to irrit ating chemicals or second hand smoke as well as allergies can cont ribute to bronchitis. Repeat episodes of bronchitis may cause lifelong lung problems. Acute bronchitis is usually treated with rest, fluids, cough medicine, and possibly antibiotics or inhaled medicine to open up the smal l airways. It is very important that you avoid smoke and drink increased a vanessa of fluids. A cool air vaporizer can help thin bronchial secreti ons. This makes it easier to cough and clear your chest. If you are a cigarette smoker, consider using nicotine gum or skin patches to help you withdraw. Recovery from bronchitis is often slow, but you should start feeling better after 2-3 days of treatment. Please call your doctor or return here if you have any of the following symptoms: - Increased fever, chills, or chest pain. - Severe shortness of breath or bloody sputum. - Do not improve after 3 days of proper treatment. Prescriptions ordered this encounter Disp Refills Start End ALBUTEROL SULFATE HFA 90 MCG/ACTUATI* 1 In* 0 05/26/2020 Cmt: Generic or brand: dispense inhaler preferre d by patient/insurance unless TRACIE flag is selected. Route: INHALATION Sig: Inhale 2 Puffs as instructed every 4 hours as needed fo r Wheezing/Shortness of Breath. PREDNISONE 20 MG TABLET 14 t* 0 05/26/2020 Route: ORAL Sig: Take 1 tablet by mouth twice daily. DOXYCYCLINE MONOHYDRATE 100 MG TABLET 20 t* 0 05/26/2020 Route: ORAL Sig: Take 1 tablet by mouth twice daily for 10 days. Encounter Status:Closed by GALE CAPUTO CNP on 05/26/20 urine culture on 08-01-19 Bacteria identified Sp. Request/Comment: - Specimen received in pre servative Normal 01-07-2020 [facility] Cx Nom (U) [place] ([id number]) Culture Result - <10,000 CFU/ml Normal urogenital emily Comment: Performed By: #### URCUL ### # [facility] [address] [place], [place] [address] progress on 2019-12 PROGRESS HNO ID: [id number] Normal 01-07-2020 [facility] Author: Shefali Betts [place] ([id number]) Service: ? Author Type: Nurse Practitioner Type: Progress Notes Filed: 01/07/2020 3:46 PM Note Text: Subjective HPI Pt presents with c/o dark yellow urine and intermittent urin vince frequency X 2-3 weeks. Denies fever, chills, myalgias, abd/flank/back pain, vaginal sx. Review of Systems Constitutional: Negative for chills and fever. Gastrointestinal: Negative for abdominal pain, constipation, diarrhea, nausea and vomiting. Genitourinary: Positive for frequency. Negative for dysuria, flank pain, hematuria and urgency. Musculoskeletal: Negative for back pain and myalgias. Objective Physical Exam Constitutional: She is oriented to person, place, and time a nd well-developed, well-nourished, and in no distress. No distr ess. Abdominal: There is no CVA tenderness. Neurological: She is alert and oriented to person, place, an d time. Skin: Skin is warm and dry. She is not diaphoretic. BP 124/78 Pulse 74 Temp 36.4 ?C (97.5 ?F) (Tympanic) R hardeep 16 Wt 62.5 kg (137 lb 12.8 oz) BMI 22.24 kg/m? .Patient presents with: Urinary Frequency: frequency and urgency x 2-3 weeks PAST MEDICAL HISTORY Diagnosis Date - Allergic rhinitis, cause unspecified - Bulging discs - Carotid artery stenosis, asymptomatic - Cervical spinal stenosis - Foot drop wears AFO - Multiple sclerosis (HCC) - Osteoporosis - Other psoriasis and similar disorders psoriatic arthritis - Peripheral vascular occlusive disease (HCC) - Scoliosis - TIA (transient ischemic attack) PAST SURGICAL HISTORY Procedure Laterality Date - BREAST BIOPSY X 2, left - BX BREAST PERC VACUUM/ROTN 09-24-09 BILAT - DELIVERY ONLY , low cervical - DELIVERY ONLY , low cervical - COLONOSCOP W/ OR W/O BRSH SPEC 01/20/16 Colonoscopy with mac - COLONOSCOPY - EGD W/O OR W/BRUSH/WASH 01/20/16 EGD - HEMORRHOID;BAND LIGAT, SNGL/MUL Hemorrhoidectomy - LAPAROSCOPIC CHOLEYCYSTECTOMY 12/06/10 Chronic - Dome Down - PAST SURGICAL HISTORY OF 03/2010 pain pump- removed 07/2011 - [facility] LOCALZTN CLIP,PERC,DURING BREAST BX 09-24-09 BILAT - REMV LENS MATERIAL,PHACOFRAGMT Cataract Extraction - THYROID LOBECTOMY,UNILAT 11/30/2005 LEFT THYROID WITH ISTHMUTH - TOTAL ABDOM HYSTERECTOMY ALSO BILATERAL OOPHORECTOMY - TOTAL ABDOM HYSTERECTOMY Hysterectomy, CARLI ALLERGIES Amitriptyline; Antihistamines; Asa [Salicylates]; Codeine; Fentanyl; Morphine; Plavix [Clopidogrel Bisulfate]; Predniso ne; Rcphwsa-Pii-Kgb Reductase Inhibitors; Tricor [Fenofibrate Mi cronized] MEDICATIONS oxyCODONE IR (ROXICODONE) 10 mg tab amitriptyline (ELAVIL) 25 mg tablet Take 25 mg by mouth lopez y at bedtime. baclofen (GABLOFEN) 40,000 mcg/20mL (2,000 mcg/mL) injection 50 mcg by INTRATHECAL route four times daily. clopidogrel (PLAVIX) 75 mg tablet Take 1 tablet by mouth marcial ry other day. Calcium Carbonate-Vitamin D3 (VITAMIN D-3) 180-5,000 mg-unit Tab Take by mouth twice daily. levothyroxine 25 mcg ORAL tablet Take 50 mcg by mouth once d aily. Melatonin 5 mg ORAL Tab Take 5 mg by mouth. As needed azithromycin (ZITHROMAX Z-RAMIRO) 250 mg tablet Take 1 tablet b y mouth once daily. benzonatate (TESSALON PERLE) 100 mg capsule Take 2 capsules by mouth three times daily as needed. HYDROcodone-acetaminophen (NORCO) 5-325 mg per tablet Take 1 tablet by mouth every 6 hours as needed. esomeprazole (NEXIUM) 40 mg capsule Take 1 capsule by mouth once daily. gabapentin (NEURONTIN) 400 mg capsule Take 1 capsule by mout h three times daily. FAMILY HISTORY Problem Relation Age of Onset - Hypertension Mother brain cancer - GI Father PASSED IN 81, FROM COMPLICATIONS OF AN AAA - other (GRAVES DISEASE) Sister Social History Tobacco Use - Smoking status: Current Every Day Smoker Packs/day: 0.50 Years: 10.00 Pack years: 5.00 - Smokeless tobacco: Never Used Substance Use Topics - Alcohol use: Not on file - Drug use: No ASSESSMENT/PLAN: 1. Urinary frequency - ICD9: 788.41, ICD10: R35.0 acute - UA WNL. - Send urine for culture - Patient education for prevention given - UA DIP, URINE (POC) - URINE CULTURE The patient is instructed to return or seek emergency treatm ent if symptoms become worse or with any acute change in condition. The patient verbalizes understanding and is in agreement wit h plan of care. Shefali Betts CNP cnov on 2020-01-07 CNOV Office Visit (UCWSTR) Normal 01-07-[address] [place] [address] [facility] ANGÉLICA WALLER ([id number]) 1955 [facility] Date Time Provider Department ([id number]) 01/07/20 2:45 PM SHEFALI BETTS [facility] During your visit today, we recorded the following informati on about you: Temperature Pulse Respiration Blood pressure 97.5 degrees 74/minute 16/minute 124/78 Weight 62.5 kg Shefali Betts APRN.CNP 01/07/2020 3:46 PM Signed Subjective HPI Pt presents with c/o dark yellow urine and intermittent ur inary frequency X 2-3 weeks. Denies fever, chills, myalgias, abd/flank/back pain, vaginal sx. Review of Systems Constitutional: Negative for chills and fever. Gastrointestinal: Negative for abdominal pain, c onstipation, diarrhea, nausea and vomiting. Genitourinary: Positive for frequency. Negative for dysuria, flank pain, hematuria and urgency. Musculoskeletal: Negative for back pain and myalgias. Objective Physical Exam Constitutional: She is oriented to perso n, place, and time and well-developed, well-nourished, and in no distress. No distress. Abdominal: There is no CVA tenderness. Neurological: She is alert and oriented to person, place, an d time. Skin: Skin is warm and dry. She is not diaphoretic. BP 124/78 Pulse 74 Temp 36.4 ?C (97.5 ?F) (Tympanic) R hardeep 16 Wt 62.5 kg (137 lb 12.8 oz) BMI 22.24 kg/m? .Patient presents with: Urinary Frequency: frequency and urgency x 2-3 weeks PAST MEDICAL HISTORY Diagnosis Date - Allergic rhinitis, cause unspecified - Bulging discs - Carotid artery stenosis, asymptomatic - Cervical spinal stenosis - Foot drop wears AFO - Multiple sclerosis (HCC) - Osteoporosis - Other psoriasis and similar disorders psoriatic arthritis - Peripheral vascular occlusive disease (HCC) - Scoliosis - TIA (transient ischemic attack) PAST SURGICAL HISTORY Procedure Laterality Date - BREAST BIOPSY X 2, left - BX BREAST PERC VACUUM/ROTN 09-24-09 BILAT - DELIVERY ONLY , low cervical - DELIVERY ONLY , low cervical - COLONOSCOP W/ OR W/O BRSH SPEC 01/20/16 Colonoscopy with mac - COLONOSCOPY - EGD W/O OR W/BRUSH/WASH 01/20/16 EGD - HEMORRHOID;BAND LIGAT, SNGL/MUL Hemorrhoidectomy - LAPAROSCOPIC CHOLEYCYSTECTOMY 12/06/10 Chronic - Dome Down - PAST SURGICAL HISTORY OF 03/2010 pain pump- removed 07/2011 - [facility] LOCALZTN CLIP,PERC,DURING BREAST BX 09-24-09 BILAT - REMV LENS MATERIAL,PHACOFRAGMT Cataract Extraction - THYROID LOBECTOMY,UNILAT 11/30/2005 LEFT THYROID WITH ISTHMUTH - TOTAL ABDOM HYSTERECTOMY ALSO BILATERAL OOPHORECTOMY - TOTAL ABDOM HYSTERECTOMY Hysterectomy, CARLI ALLERGIES Amitriptyline; Antihistamines; Asa [Salicylates]; Codeine; Fentanyl; Morphine; Plavix [Clopidogre l Bisulfate]; Prednisone; Fdusvde-Jbg-Tif Reductase Inhibitors; Tricor [Fenofibrate Micronized] MEDICATIONS oxyCODONE IR (ROXICODONE) 10 mg tab amitriptyline (ELAVIL) 25 mg tablet Take 25 mg by mouth lopez y at bedtime. baclofen (GABLOFEN) 40,000 mcg/20mL (2,000 mcg/mL) injection 50 mcg by INTRATHECAL route four times daily. clopidogrel (PLAVIX) 75 mg tablet Take 1 tablet by mouth marcial ry other day. Calcium Carbonate-Vitamin D3 (VITAMIN D- 3) 180-5,000 mg-unit Tab Take by mouth twice daily. levothyroxine 25 mcg ORAL tablet Take 50 mcg by mouth once d aily. Melatonin 5 mg ORAL Tab Take 5 mg by mouth. As needed azithromycin (ZITHROMAX Z-PA K) 250 mg tablet Take 1 tablet by mouth once daily. benzonatate (TESSALON PERLE) 100 mg capsule Take 2 capsules by mouth three times daily as needed. HYDROcodone-acetaminophen (NORCO) 5-325 mg per tablet Take 1 tablet by mouth every 6 hours as needed. esomeprazole (NEXIUM) 40 mg capsule Take 1 capsule by mouth once daily. gabapentin (NEURONTIN) 400 mg capsule Take 1 capsule by mout h three times daily. FAMILY HISTORY Problem Relation Age of Onset - Hypertension Mother brain cancer - GI Father PASSED IN 81, FROM COMPLICATIONS OF AN AAA - other (GRAVES DISEASE) Sister Social History Tobacco Use - Smoking status: Current Every Day Smoker Packs/day: 0.50 Years: 10.00 Pack years: 5.00 - Smokeless tobacco: Never Used Substance Use Topics - Alcohol use: Not on file - Drug use: No ASSESSMENT/PLAN: 1. Urinary frequency - ICD9: 788.41, ICD10: R35.0 acute - UA WNL. - Send urine for culture - Patient education for prevention given - UA DIP, URINE (POC) - URINE CULTURE The patient is instructed to return or seek emergency genesis tment if symptoms become worse or with any acute change in condition. The patient verbalizes understanding and is in agreement w ith plan of care. Shefali Betts CNP Referring Provider: SELF [[id number]] Allergies As of Date: 01/07/2020 Noted Allergy Reaction AMITRIPTYLINE 03/12/2019 2 - Rash ANTIHISTAMINES 04/28/2004 Comments: messes her head up ASA (SALICYLATES) 12/04/2008 CODEINE 04/28/2004 Comments: nausea FENTANYL 02/19/2012 14 - Other: See Comments Comments: Sweating/ Flushing MORPHINE 04/28/2004 Comments: nausea and vomiting PLAVIX (CLOPIDOGREL BISULFATE) 12/18/2011 14 - Other: See Co mments Comments: Heartburn PREDNISONE 12/15/2008 Comments: Destroyed bone. [id number] REDUCTASE INHIBIT*04/27/2011 5 - Intolerance TRICOR (FENOFIBRATE MICRONIZED) 04/27/2011 5 - Intolerance Date Reviewed: 01/07/2020 Reviewed by: Luz Elena Colin LPN - Fully Assessed Reason for Visit: Urinary Frequency [1086] Cmt: frequency and urgency x 2-3 we eks Primary Visit Diagnosis:Urinary frequency [R35.0] Order(s):UA DIP, URINE (POC) [[id number]] Order #: [id number] ec. #:[id number] URINE CULTURE [SQURCUL] Order #: [id number] Prescriptions as of 01/07/2020 Sig: OXYCODONE 10 MG TABLET AMITRIPTYLINE 25 MG TABLET Take 25 mg by mouth daily at * BACLOFEN 40,000 MCG/20 ML (2,* 50 mcg by INTRATHECAL route f * CLOPIDOGREL 75 MG TABLET Take 1 tablet by mouth every * CALCIUM CARBONATE-VITAMIN D3 * Take by mouth twice daily. LEVOTHYROXINE 25 MCG TABLET Take 50 mcg by mouth once celia* MELATONIN 5 MG TABLET Take 5 mg by mouth. As needed* AZITHROMYCIN 250 MG TABLET Take 1 tablet by mouth once d* Patient not taking: Reported on 01/07/2020 BENZONATATE 100 MG CAPSULE Take 2 capsules by mouth thre* Patient not taking: Reported on 01/07/2020 HYDROCODONE 5 MG-ACETAMINOPHE* Take 1 tablet by mouth every * ESOMEPRAZOLE MAGNESIUM 40 MG * Take 1 capsule by mouth once * GABAPENTIN 400 MG CAPSULE Take 1 capsule by mouth three* Patient taking differently: Take 800 mg by mouth three ti* Problem List As Of Date 01/07/2020 Noted Resolved 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 [F43.21]10/06/2005 MULTIPLE SCLEROSIS [G35] 10/06/2005 HYPERLIPIDEMIA NEC/NOS [E78.5] 10/06/2005 THYROID NODULE NODULE, NONTOXIC (Left) [E04.1] 11/07/2005 Abnormal Mammogram, Unspecified [R92.8] 09/14/2009 Fibrocystic Disease of Breast [N60.19] 09/28/2009 Cholelithiasis NOS [K80.20] 12/05/2010 Acute cholecystitis [K81.0] 12/07/2010 History of adenomatous polyp of colon [Z86.010] 01/20/2016 0 01/20/2016 Chronic GERD [K21.9] 01/20/2016 01/20/2016 Carotid artery stenosis, asymptomatic [I65.29] Peripheral vascular occlusive disease (HCC) [I7* Encounter Status:Closed by SHEFALI BETTS CNP on progress on 2019-07 PROGRESS HNO ID: [id number] Normal 08-15-2019 [facility] Author: Shelly Moser [place] ([id number]) Service: ? Author Type: ? Type: Progress Notes Filed: 08/15/2019 1:51 PM Note Text: Radiology Service Progress Note PATIENT NAME: Angélica Waller DATE OF SERVICE: August 15, 2019 TIME: 1:45 PM PATIENT IDENTITY VERIFICATION COMPLETED USING TWO (2) METHOD S: Name and Date of confirmed by patient verbally. PATIENT GENDER DATA: Female. status: : No status: NO. PATIENT RELEVANT IMPLANT DATA REVIEWED: Not Applicable RADIOLOGY DEPARTMENT: General X-ray: Exam(s) Completed: Ches t X-Ray PERIPHERAL IV DATA: Not applicable SIGNED BY: Shelly Moser August 15, 2019 1:45 PM PROGRESS HNO ID: [id number] Normal 08-15-2019 [facility] Author: Kj Castellanos [place] ([id number]) Service: ? Author Type: Nurse Practitioner Type: Progress Notes Filed: 08/15/2019 2:21 PM Note Text: Subjective HPI Angélica Waller is a 64 year old female who presents with co ugh and chest congestion for the last week and left arm redness below the injection site of influenza vaccine given 08/13/19 which she thinks may be a n insect bite. Cough has been productive. Slight shortness of breath. No fe christian or chills. Feels well otherwise. Review of Systems Constitutional: Negative for chills, fever and malaise/fatig ue. HENT: Positive for congestion. Negative for ear pain, sinus pain and sore throat. Respiratory: Positive for cough and sputum production. Negat lluvia for shortness of breath and wheezing. Cardiovascular: Negative for chest pain, palpitations and le g swelling. Musculoskeletal: Negative for joint pain and myalgias. Skin: Positive for itching and rash. Left upper arm redness BP 115/70 Pulse 88 Temp 36.7 ?C (98 ?F) (Tympanic) Res p 16 Wt 61.8 kg (136 lb 3.2 oz) SpO2 97% BMI 21.98 kg/m? PAST MEDICAL HISTORY Diagnosis Date - Allergic rhinitis, cause unspecified - Bulging discs - Carotid artery stenosis, asymptomatic - Cervical spinal stenosis - Foot drop wears AFO - Multiple sclerosis (HCC) - Osteoporosis - Other psoriasis and similar disorders psoriatic arthritis - Peripheral vascular occlusive disease (HCC) - Scoliosis - TIA (transient ischemic attack) PAST SURGICAL HISTORY Procedure Laterality Date - BREAST BIOPSY X 2, left - BX BREAST PERC VACUUM/ROTN 09-24-09 BILAT - DELIVERY ONLY , low cervical - DELIVERY ONLY , low cervical - COLONOSCOP W/ OR W/O BRSH SPEC 01/20/16 Colonoscopy with mac - COLONOSCOPY - EGD W/O OR W/BRUSH/WASH 01/20/16 EGD - HEMORRHOID;BAND LIGAT, SNGL/MUL Hemorrhoidectomy - LAPAROSCOPIC CHOLEYCYSTECTOMY 12/06/10 Chronic - Dome Down - PAST SURGICAL HISTORY OF 03/2010 pain pump- [facility]PERC,DURING BREAST BX 09-24-09 BILAT - REMV LENS MATERIAL,PHACOFRAGMT Cataract Extraction - THYROID LOBECTOMY,UNILAT 11/30/2005 LEFT THYROID WITH ISTHMUTH - TOTAL ABDOM HYSTERECTOMY ALSO BILATERAL OOPHORECTOMY - TOTAL ABDOM HYSTERECTOMY Hysterectomy, CARLI ALLERGIES Amitriptyline; Antihistamines; Asa [Salicylates]; Codeine; Fentanyl; Morphine; Plavix [Clopidogrel Bisulfate]; Predniso ne; Eufodum-Hlc-Fip Reductase Inhibitors; Tricor [Fenofibrate Mi cronized] MEDICATIONS baclofen (GABLOFEN) 40,000 mcg/20mL (2,000 mcg/mL) injection 50 mcg by INTRATHECAL route four times daily. HYDROcodone-acetaminophen (NORCO) 5-325 mg per tablet Take 1 tablet by mouth every 6 hours as needed. clopidogrel (PLAVIX) 75 mg tablet Take 1 tablet by mouth marcial ry other day. gabapentin (NEURONTIN) 400 mg capsule Take 1 capsule by mout h three times daily. Calcium Carbonate-Vitamin D3 (VITAMIN D-3) 180-5,000 mg-unit Tab Take by mouth twice daily. levothyroxine 25 mcg ORAL tablet Take 50 mcg by mouth once d aily. Melatonin 5 mg ORAL Tab Take 5 mg by mouth. As needed amitriptyline (ELAVIL) 25 mg tablet Take 25 mg by mouth lopez y at bedtime. esomeprazole (NEXIUM) 40 mg capsule Take 1 capsule by mouth once daily. FAMILY HISTORY Problem Relation Age of Onset - Hypertension Mother brain cancer - GI Father PASSED IN 81, FROM COMPLICATIONS OF AN AAA - other (GRAVES DISEASE) Sister Social History Tobacco Use - Smoking status: Current Every Day Smoker Packs/day: 0.50 Years: 10.00 Pack years: 5.00 - Smokeless tobacco: Never Used Substance Use Topics - Alcohol use: Not on file - Drug use: No Objective Physical Exam Constitutional: She is oriented to person, place, and time a nd well-developed, well-nourished, and in no distress. HENT: Head: Normocephalic and atraumatic. Eyes: Conjunctivae are normal. Cardiovascular: Normal rate, regular rhythm, normal heart so unds and intact distal pulses. Exam reveals no gallop and no friction rub. No murmur heard. Pulmonary/Chest: Effort normal and breath sounds normal. No respiratory distress. She has no wheezes. She has no rales. She exhibits no tenderness. Coarse breaths sounds throughout on expiration Musculoskeletal: She exhibits no edema. Lymphadenopathy: She has no cervical adenopathy. Neurological: She is alert and oriented to person, place, an d time. Gait normal. Skin: Skin is warm and dry. She is not diaphoretic. There is erythema (left upper arm. macular erythematous rash with a small pin point scab- possible insect bite). Psychiatric: Mood, memory, affect and judgment normal. ASSESSMENT/PLAN: 1. Cough - ICD9: 786.2, ICD10: R05 (primary diagnosis) - suspect protracted URI with bronchitis, CXR negative see b elow - Start chente crowell and jessicalokeshmaia cinthiacatina, hold off on steroidal tx with recent vaccination - XR CHEST 2V FRONTAL/LAT IMPRESSION: No acute radiographic abnormality. Coil Finisher: CAROLINE ? Transcribe Date/Time: Aug 15 2019 ?1:57P Dictated by : RANDAL WISEMAN MD 2. Erythema of skin - ICD9: 695.9, ICD10: L53.9 - far from injection site, so I do not think it is related - insect bite likely - warm compresses - hydrocortisone cream as needed - watch for signs of infection Patient understands if he/she develops any shortness of uzair th, chest pain, or persistent fever, they should be taken to the ER im mediately or call 911. All of the above discussed with the patient in detail. Giacomo aranda is in agreement with the above plan. Treatment and plan of care di scussed including course of treatment, possible medication side effe cts, and what to watch for in regards to worsening signs and symptoms. All questions addressed. Kj Castellanos APRN.MYA de la cruz on 2019-08-15 CNOV Office Visit (UCWSTR) Normal 08-15-20 [address] [place] ANGÉLICA Goodwin ([id number]) 1955 [facility] Time Provider Department ([id number]) 08/15/19 1:15 PM KJ CASTELLANOS WSTR During your visit today, we recorded the following informati on about you: Temperature Pulse Respiration Blood pressure 98 degrees 88/minute 16/minute 115/70 Weight 61.8 kg Kj Castellanos APRN.WEAVE ROOM SUPERVISOR 08/15/2019 2:21 PM Signed Subjective HPI Angélica Lewfer is a 64 year old female who presents with co ugh and chest congestion for the last week and left arm rednes s below the injection site of influenza vaccine given 08/13/19 which she thinks may be an insect bite. Cough has been productive. Slight shortness of breath. No fever or chills. Feels well otherwise. Review of Systems Constitutional: Negative for chills, fever and malaise/fatig ue. HENT: Positive for congestion. Negative for ear pain, sinus pain and sore throat. Respiratory: Positive for cough and sputum produ ction. Negative for shortness of breath and wheezing. Cardiovascular: Negative for chest pain, palpitations and le g swelling. Musculoskeletal: Negative for joint pain and myalgias. Skin: Positive for itching and rash. Left upper arm redness BP 115/70 Pulse 88 Temp 36.7 ?C (98 ?F) (Tympanic) Res p 16 Wt 61.8 kg (136 lb 3.2 oz) SpO2 97% BMI 21.98 kg/m? PAST MEDICAL HISTORY Diagnosis Date - Allergic rhinitis, cause unspecified - Bulging discs - Carotid artery stenosis, asymptomatic - Cervical spinal stenosis - Foot drop wears AFO - Multiple sclerosis (HCC) - Osteoporosis - Other psoriasis and similar disorders psoriatic arthritis - Peripheral vascular occlusive disease (HCC) - Scoliosis - TIA (transient ischemic attack) PAST SURGICAL HISTORY Procedure Laterality Date - BREAST BIOPSY X 2, left - BX BREAST PERC VACUUM/ROTN 09-24-09 BILAT - DELIVERY ONLY , low cervical - DELIVERY ONLY , low cervical - COLONOSCOP W/ OR W/O BRSH SPEC 01/20/16 Colonoscopy with mac - COLONOSCOPY - EGD W/O OR W/BRUSH/WASH 01/20/16 EGD - HEMORRHOID;BAND LIGAT, SNGL/MUL Hemorrhoidectomy - LAPAROSCOPIC CHOLEYCYSTECTOMY 12/06/10 Chronic - Dome Down - PAST SURGICAL HISTORY OF 03/2010 pain pump- removed 07/2011 - [facility] LOCALZTN CLIP,PERC,DURING BREAST BX 09-24-09 BILAT - REMV LENS MATERIAL,PHACOFRAGMT Cataract Extraction - THYROID LOBECTOMY,UNILAT 11/30/2005 LEFT THYROID WITH ISTHMUTH - TOTAL ABDOM HYSTERECTOMY ALSO BILATERAL OOPHORECTOMY - TOTAL ABDOM HYSTERECTOMY Hysterectomy, CARLI ALLERGIES Amitriptyline; Antihistamines; Asa [Salicylates]; Codeine; Fentanyl; Morphine; Plavix [Clopidogre l Bisulfate]; Prednisone; Rblvfnb-Apg-Ohs Reductase Inhibitors; Tricor [Fenofibrate Micronized] MEDICATIONS baclofen (GABLOFEN) 40,000 mcg/20mL (2,000 mcg/mL) injection 50 mcg by INTRATHECAL route four times daily. HYDROcodone-acetaminophen (NORCO) 5-325 mg per tablet Take 1 tablet by mouth every 6 hours as needed. clopidogrel (PLAVIX) 75 mg tablet Take 1 tablet by mouth marcial ry other day. gabapentin (NEURONTIN) 400 mg capsule Take 1 capsule by mout h three times daily. Calcium Carbonate-Vitamin D3 (VITAMIN D- 3) 180-5,000 mg-unit Tab Take by mouth twice daily. levothyroxine 25 mcg ORAL tablet Take 50 mcg by mouth once d aily. Melatonin 5 mg ORAL Tab Take 5 mg by mouth. As needed amitriptyline (ELAVIL) 25 mg tablet Take 25 mg by mouth lopez y at bedtime. esomeprazole (NEXIUM) 40 mg capsule Take 1 capsule by mouth once daily. FAMILY HISTORY Problem Relation Age of Onset - Hypertension Mother brain cancer - GI Father PASSED IN 81, FROM COMPLICATIONS OF AN AAA - other (GRAVES DISEASE) Sister Social History Tobacco Use - Smoking status: Current Every Day Smoker Packs/day: 0.50 Years: 10.00 Pack years: 5.00 - Smokeless tobacco: Never Used Substance Use Topics - Alcohol use: Not on file - Drug use: No Objective Physical Exam Constitutional: She is oriented to perso n, place, and time and well-developed, well-nourished, and in no distress. HENT: Head: Normocephalic and atraumatic. Eyes: Conjunctivae are normal. Cardiovascular: Normal rate, regular rhythm, normal heart sounds and intact distal pulses. Exam reveals no gallop and no friction rub. No murmur heard. Pulmonary/Chest: Effort normal and breath sounds normal. No respiratory distress. She has no wheezes. She has no rales. She exhibi ts no tenderness. Coarse breaths sounds throughout on expiration Musculoskeletal: She exhibits no edema. Lymphadenopathy: She has no cervical adenopathy. Neurological: She is alert and oriented to person, place, an d time. Gait normal. Skin: Skin is warm and dry. She is not diaphoretic. There is erythema (left upper arm. macular erythematous rash with a small pin point scab- possible insect bite). Psychiatric: Mood, memory, affect and judgment normal. ASSESSMENT/PLAN: 1. Cough - ICD9: 786.2, ICD10: R05 (primary diagnosis) - suspect protracted URI with bronchitis, CXR negative see david sheth - Margaret crowell and ruby garner, hold off on steroidal tx with recent vaccination - XR CHEST 2V FRONTAL/LAT IMPRESSION: No acute radiographic abnormality. Coil Finisher: CAROLINE ? Transcribe Date/Time: Aug 15 2019 ?1:57P Dictated by : RANDAL WISEMAN MD 2. Erythema of skin - ICD9: 695.9, ICD10: L53.9 - far from injection site, so I do not think it is related - insect bite likely - warm compresses - hydrocortisone cream as needed - watch for signs of infection Patient understands if he/she develops a ny shortness of breath, chest pain, or persistent fever, they should be taken to the ER immediately or call 911. All of the above discussed with the valerie ent in detail. Patient is in agreement with the above plan. Treatment and plan of care discussed including course of treatment, possible medication side effects, and what to watch for in regards to worsening signs and symptoms. All questions addressed. Kj Castellanos, ANTWON.WEAVE ROOM SUPERVISOR Referring Provider: SELF [[id number]] Allergies As of Date: 08/15/2019 Noted Allergy Reaction AMITRIPTYLINE 03/12/2019 2 - Rash ANTIHISTAMINES 04/28/2004 Comments: messes her head up ASA (SALICYLATES) 12/04/2008 CODEINE 04/28/2004 Comments: nausea FENTANYL 02/19/2012 14 - Other: See Comments Comments: Sweating/ Flushing MORPHINE 04/28/2004 Comments: nausea and vomiting PLAVIX (CLOPIDOGREL BISULFATE) 12/18/2011 14 - Other: See Co mments Comments: Heartburn PREDNISONE 12/15/2008 Comments: Destroyed bone. MOMWUPY-VTC-ROL REDUCTASE INHIBIT*04/27/2011 5 - Intolerance TRICOR (FENOFIBRATE MICRONIZED) 04/27/2011 5 - Intolerance Date Reviewed: 08/15/2019 Reviewed by: Kj Castellanos - Fully Assessed Reason for Visit: Cough [28] Cmt: and chest congestion x last night reaction from injection [Other] Cmt: rash on (left) up per arm after flu shot x today Primary Visit Diagnosis:Cough [R05] Other Visit Diagnosis:Erythema of skin [L53.9] Order(s):XR CHEST 2V FRONTAL/LAT [[id number]] Order #: [id number] FUTURE azithromycin (ZITHROMAX Z-RAMIRO) 250 mg tabletTake 1 tablet by mouth once daily.Disp: 1 PackageRfl: 0 benzonatate (TESSALON PERLE) 100 mg capsuleTake 2 capsules b y mouth three times daily as needed.Disp: 42 capsuleRfl: 0 Prescriptions as of 08/15/2019 Sig: BACLOFEN 40,000 MCG/20 ML (2,* 50 mcg by INTRATHECAL route f * HYDROCODONE 5 MG-ACETAMINOPHE* Take 1 tablet by [...] Take 5 mg by mouth. 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 [F43.21]INVALID FOR* MULTIPLE SCLEROSIS [G35] INVALID FOR* HYPERLIPIDEMIA NEC/NOS [E78.5] INVALID FOR* THYROID NODULE NODULE, NONTOXIC (Left) [E04.1] INVALID FOR* Abnormal Mammogram, Unspecified [R92.8] INVALID FOR* Fibrocystic Disease of Breast [N60.19] INVALID FOR* Cholelithiasis NOS [K80.20] INVALID FOR* Acute cholecystitis [K81.0] INVALID FOR* History of adenomatous polyp of colon [Z86.010] INVALID FOR* 01/20/2016 Chronic GERD [K21.9] INVALID FOR*01/20/2016 Carotid artery stenosis, asymptomatic [I65.29] Peripheral vascular occlusive disease (HCC) [I7* Prescriptions ordered this encounter Disp Refills Start End AZITHROMYCIN 250 MG TABLET 1 Pa* 0 08/15/2019 Route: ORAL Sig: Take 1 tablet by mouth once daily. BENZONATATE 100 MG CAPSULE 42 c* 0 08/15/2019 Route: ORAL Sig: Take 2 capsules by mouth three times daily as needed. Encounter Status:Closed by THIERRY KAPOOR.KJ SIMON on 08/15 cnov on 2019-08-13 CNOV Office Visit ([facility]) Normal 08-13-20 [facility] ANGÉLICA WALLER ([id number]) 1955 [facility] Date Time Provider Department ([id number]) 08/13/19 2:30 [address] [facility] During your visit today, we recorded the following informati on about you: Ghazala Razo Ma 08/13/2019 2:28 PM Signed Patient here for flu shot as ordered by provider Referring Provider: SELF [[id number]] Allergies As of Date: 08/13/2019 Noted Allergy Reaction AMITRIPTYLINE 03/12/2019 2 - Rash ANTIHISTAMINES 04/28/2004 Comments: messes her head up ASA (SALICYLATES) 12/04/2008 CODEINE 04/28/2004 Comments: nausea FENTANYL 02/19/2012 14 - Other: See Comments Comments: Sweating/ Flushing MORPHINE 04/28/2004 Comments: nausea and vomiting PLAVIX (CLOPIDOGREL BISULFATE) 12/18/2011 14 - Other: See Co mments Comments: Heartburn PREDNISONE 12/15/2008 Comments: Destroyed bone. LZZOXSB-BZE-RVS REDUCTASE INHIBIT*04/27/2011 5 - Intolerance TRICOR (FENOFIBRATE MICRONIZED) 04/27/2011 5 - Intolerance Date Reviewed: 03/12/2019 Reviewed by: Kj Castellanos - Fully Assessed Primary Visit Diagnosis:Need for immunization against influe nza [Z23] Order(s):INFLUENZA SEASONAL HIGH DOSE AGE 65+ [[id number]] Order #: [id number] Prescriptions as of 08/13/2019 Sig: AMITRIPTYLINE 25 MG TABLET Take 25 mg by mouth daily at * BACLOFEN 40,000 MCG/20 ML (2,* 50 mcg by INTRATHECAL route f * HYDROCODONE 5 MG-ACETAMINOPHE* Take 1 tablet by mouth every * ESOMEPRAZOLE MAGNESIUM 40 MG * Take 1 capsule by mouth once * CLOPIDOGREL 75 MG TABLET Take 1 tablet by mouth every * GABAPENTIN 400 MG CAPSULE Take 1 capsule by mouth three* Patient taking differently: Take 800 mg by mouth three ti* CALCIUM CARBONATE-VITAMIN D3 * Take by mouth twice daily. LEVOTHYROXINE 25 MCG TABLET Take 50 mcg by mouth once celia* MELATONIN 5 MG TABLET Take 5 mg by mouth. 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 [F43.21]INVALID FOR* MULTIPLE SCLEROSIS [G35] INVALID FOR* HYPERLIPIDEMIA NEC/NOS [E78.5] INVALID FOR* THYROID NODULE NODULE, NONTOXIC (Left) [E04.1] INVALID FOR* Abnormal Mammogram, Unspecified [R92.8] INVALID FOR* Fibrocystic Disease of Breast [N60.19] INVALID FOR* Cholelithiasis NOS [K80.20] INVALID FOR* Acute cholecystitis [K81.0] INVALID FOR* History of adenomatous polyp of colon [Z86.010] INVALID FOR* 01/20/2016 Chronic GERD [K21.9] INVALID FOR*01/20/2016 Carotid artery stenosis, asymptomatic [I65.29] Peripheral vascular occlusive disease (HCC) [I7* Visit Notes: >> Ghazala Razo Ma Wed Aug 13, 2019 2:26 PM Status: Signed Patient here for flu shot as ordered by provider Encounter Status:Closed by DUNCAN HUBER on 08/18/19 progress on 2017-12 PROGRESS HNO ID: [id number]: Yogesh Cook 12-22-2017 [facility] Kai Hartley: [place] ([id number]) (none)Author Type: PhysicianType: Progress NotesFiled: 12/22/2017 12:15 PMNote Text:This patient is seen today in follow-up of her testing with regard to hercarotid artery disease. Dr. La performed a carotid carotid bypass onthis patient in the past and she is here today for follow-up of that aswell as her peripheral vascular disease. She currently states that she isreally not having any significant symptoms with regard to her peripheralvascular occlusive disease. At this point in time I review her Dopplersand look at the numbers related to her carotid carotid bypass and thesereally no seem to change from previous studies. I think the bypass isopen and while there are some elevated velocities I think this relatesmore to the angle of the anastomoses and the probe as opposed to actuallyany significant severe stenosis. Patient is asymptomatic with no evidenceof any type of carotid symptomatology. She has no evidence of any strokeor strokelike symptomatology. She has had no TIAs and at this point intime is stable from that perspective. At this point in time she tells jonah is told that she has had some subclavian stenosis by her othervascular surgeon and we go into a discussion of this point in time aboutthe fact that she is also being followed by Dr. Nava for her vasculardisease. With this being the case and with there being no real goodreason for to vascular surgeons to be following the same patient for thesame issues I discussed with the patient the possibility that frances should continue her follow-up with Dr. Nava as he seems to beprimarily managing these problems [place] in [place]. At this point in timeI tell her that at any point we will be very glad to see her back and takecare of any problems that she wishes but I assure her that Dr. Nava is kevin good vascular surgeon who can certainly deal with any of the issuesthat we might have to deal with with regard to her vascular disease. Atthis juncture I tell her that we will follow-up with her on an as-neededbasis as long as she continues her follow up with Dr. Nava. She seemssatisfied with this plan and will follow-up with Dr. Nava for futurevascular surgery concerns. I spent 15 minutes in the visit, with more than50% of the total bjud-fi-nbzb time of the visit in counseling /coordination of care. gertrudis on 2017-12-21 CNOV Office Visit Normal 12-21-2017 [place] ([place]BORAH) -------ANGÉLICA WALLER ([id number]) 1955 F Date Time Provider Department12/21/17 10:30 AM YOGESH ONOFRE [facility] During your visit today, we recorded the following information about you: Pulse Respiration Blood Center pressure Weight 78/minute 16 /minute 132/70 63.5 kg Height 1.676 Eryn Onofre MD 12/22/2017 12:15 (0 0000) PM SignedThis patient is see n today in follow-up of her testing with regard to hercarotid artery disease. Dr. La perform ed a carotid carotid bypass on thispatient in the past and she is here today for follow-up of that as well as herperipheral vascular disease. She currently states that she is really nothaving any sign ificant symptoms with regard to her peripheral vascularocclusive disease. At this point in time I revi ew her Dopplers and look at thenumbers related to her carotid carotid bypass and these really no s eem tochange from previous studies. I think the bypass is open and while there aresome elevated veloc ities I think this relates more to the angle of theanastomoses and the probe as opposed to actually any significant severestenosis. Patient is asymptomatic with no evidence of any type of carotidsympto matology. She has no evidence of any stroke or strokelikesymptomatology. She has had no TIAs and at t his point in time is stable fromthat perspective. At this point in time she tells me she is told myke t she hashad some subclavian stenosis by her other vascular surgeon and we go into adiscussion of th is point in time about the fact that she is also being followedby Dr. Nava for her vascular dise ase. With this being the case and withthere being no real good reason for to vascular surgeons to be f ollowing thesame patient for the same issues I discussed with the patient the possibilitythat potentia lly she should continue her follow-up with Dr. Nava as he seemsto be primarily managing these pro blems [place]. At this point in timeI tell her that at any point we will be very glad to see her back and take careof any problems that she wishes but I assure her that Dr. Nava is a very go odvascular surgeon who can certainly deal with any of the issues that we mighthave to deal with with regard to her vascular disease. At this juncture I tellher that we will follow-up with her on an as- needed basis as long as shecontinues her follow up with Dr. Nava. She seems satisfied with this pl jayde will follow-up with Dr. Nava for future vascular surgery concerns. Ispent 15 minutes in the visit, with more than 50% of the total nivn-tu-bmrdgdpu of the visit in counseling / coordi nation of care.Referring Provider: ZHANE PARRA [[id number]]Allergies As of Date: 12/21/2017 Noted Al katia ReactionANTIHISTAMINES 04/28/2004 Comments: messes her head upASA (SALICYLATES) 12/04/2008CODE INE 04/28/2004 Comments: nauseaFENTANYL 02/19/2012 14 - Other: See Comments Comments: Sweating/ FlushingMORPHINE 04/28/2004 Comments: nausea and vomitingPLAVIX (CLOPIDOGREL BISULFATE) 11/21 14 - Other: See Comments Comments: HeartburnPREDNISONE 12/15/2008 Comments: Destroyed bone.STA JZKE-OTR-OUF REDUCTASE INHIBIT*04/27/2011 5 - IntoleranceTRICOR (FENOFIBRATE MICRONIZED) 07/2011 5 - IntoleranceDate Reviewed: 12/21/2017Reviewed by: Romelia Tripp LPN - Fully AssessedReason f or Visit: Peripheral Vascular Disease (PVD) [3545] Cmt: Angélica is here for follo up PVD AND Carotid skyler nosis. PVR AND Carotid us done 12/03/17 Stenosis [1326]Primary Visit Diagnosis:Internal carotid a rtery stenosis, bilateral [I65.23] Other Visit Diagnosis:Peripheral vascular occlusive disease ( HCC) [I73.9]Prescriptions as of 12/21/2017 Sig: BACLOFEN 40,000 MCG/20 ML (2,* 50 mcg by INTRATHECAL r oute f* HYDROCODONE 5 MG-ACETAMINOPHE* Take 1 tablet by mouth every * CLOPIDOGREL 75 MG TABLET Jevon e 1 tablet by mouth every * GABAPENTIN 400 MG CAPSULE Take 1 capsule by mouth three* Patient taking differently: Take 800 mg by mouth three ti* CALCIUM CARBONATE-VITAMIN D3 * Take by mouth twice daily. LEVOTHYROXINE 25 MCG TABLET Take 50 mcg by mouth once celia* MELATONIN 5 MG TABLET Take 5 mg by mouth . As needed* ESOMEPRAZOLE MAGNESIUM 40 MG * Take 1 capsule by mouth once *Medication notes this encou nter HYDROCODONE 5 MG-ACETAMINOPHEN 325 MG TABLET >> Romelia Tripp LPN 12/21/2017 10:42 AM >> ROMELIA TRIPP LPN SunDec 21, 2017 10:42 AMProblem List As Of Date 12/21/2017 Noted Resolved PSORIAS RELAT ED DIS NEC [L40.8] ADJUSTMENT DISORDER WITH DEPRESSED MOOD [F43.21]INVALID FOR* MULTIPL E SCLEROSIS [G35] INVALID FOR* HYPERLIPIDEMIA NEC/NOS [E78.5] INVALID FOR* THYROID NODULE NODULE, NONTOXIC (Left) [E04.1] INVALID FOR* Abnormal Mammogram, Unspecified [R92.8] INVALID FOR* Fibrocy stic Disease of Breast [N60.19] INVALID FOR* Cholelithiasis NOS [K80.20] INVALID FOR* Acute cholecyst itis [K81.0] INVALID FOR* History of adenomatous polyp of colon [Z86.010] INVALID FOR*01/20/2016 Chron ic GERD [K21.9] INVALID FOR*01/20/2016 Carotid artery stenosis, asymptomatic [I65.29] Periph eral vascular occlusive disease (HCC) [I7*Letter TextEncounter Number: [id number] Status:Closed by YOGESH ONOFRE MD on 12/22 office visit on 05-26-29 Documentation of Done Invalid Interpretation 07-17-2017 - [place] [facility] current medications Code 07-17-2017 Group ([id number]) (procedure) Fall risk assessment Yes Invalid Interpretat ion 07-17-2017 - [facility] Code 07-17-2017 Group ([id number]) office visit on 05-26-03 Protein mass yes 06-21-2017 - [facility] conc 06-21-2017 [facility] or Medicine a nd Orthopaedi cs ([id number]) Protein mass Done 06-21-2017 - [facility] 06-21-2017 [facility] Medicine a nd Orthopaedi cs ([id number]) Smoking yes Invalid 06-21-2017 - [facility] cessation Interpretation Code 06-21-2017 Group ([id number]) education (procedure) Tobacco smoking Current every 06-21-2017 - [facility] status [facility] day smoker 06-21-2017 [facility] a nd Orthopaedi cs (31606) Tobacco use Current every Invalid 06-21-2017 - [facility] day smoker Interpretation Code 7 Group ([id number]) office visit on 05-23-25 Documentation of Done Invalid 04-12-2017 - [facility] current Interpretation Code 04-12-2017 [facility] medications Medicine and (procedure) Orthopae dics (33659) Protein mass conc Done 04-12-2017 - [facility] 04-12-2017 [facility] a nd [facility]opaedi [facility] (67636) Protein mass conc yes 04-12-2017 - [facility] 04-12-2017 [place] [facility] a nd Orthopaedi cs (60002) Smoking cessation yes Invalid 04-12-2017 - [facility] Interpretation Code 04-12-2017 [place] [facility] (procedure) Medicine and Orthopaedi cs (69027) Tobacco smoking Current 04-12-2017 - [facility] status [facility] every day 04-12-2017 [facility] Sports smoker Medicine a nd Orthopaedi cs ([id number]) Tobacco use [facility] Current Invalid 04-12-2017 - [facility] every day Interpretation Code 04-12-2017 [place] [facility] smoker Medicine a nd Orthopaedi cs ([id number]) office visit: mmm o n 2017-01-17 Fall risk No Invalid Interpretation 017 [facility] assessment Code 01-17-2017 [facility] M edicine and Orthopaedi cs ([id number]) lab report: serum creatinine and gfr on 2016-04-19 Creatinine 0.76 0.55-1.20 mg/dL Invalid 04-19-2016 [facility] Interpretation 04-19-2016 Cent er [facility] Code Medicine a nd Orthopaedi cs ([id number]) eGFR 99 >60 mL/min Invalid 04-19-2016 - [facility] (non-black) Interpretation 04-19-2016 Ce n[facility] Code Medicine a nd Orthopaedi cs ([id number]) eGFR 82 >60 mL/min Invalid 04-19-2016 - [facility] (non-black) Interpretation 04-19-2016 Ce n[facility] Code Medicine a nd Orthopaedi cs ([id number]) EST GFR - AA 99 >60 mL/min 04-19-2016 - [facility] 04-19-2016 [facility] a nd Orthopaedi cs ([id number]) lab report: liver profile on 2016-04-19 Alanine 16 12-78 U/L Invalid 04-19-2016 [facility] aminotransferase Interpretation 04-19-20 16 [facility] (ALT) Code Medicine a nd Orthopaedi cs (37609) Albumin 3.8 3.4-5.0 g/dL Invalid 04-19-2016 [facility] Interpretation 04-19-2016 [facility] er Sports Code Medicine a nd Orthopaedi cs ([id number]) Alkaline phosphatase 128 50-136 U/L Invalid - [facility] (ALP) Interpretation 04-19-2016 [facility] er Sports Code Medicine a nd Orthopaedi cs (35921) ALP enzyme act/vol 128 50-136 U/L 04-19-2016 - [facility] (Bld) 04-19-2016 [facility] a nd Orthopaedi cs ([id number]) Aspartate 15 15-37 U/L Invalid 04-19-2016 [facility] aminotransferase Interpretation 04-19-20 16 [facility] (AST) Code Medicine a nd Orthopaedi cs ([id number]) Bilirubin (direct) 0.07 0.00-0.30 mg/dL Invalid 04-19-2016 - [facility] Interpretation 04-19-2016 [facility] er Sports Code Medicine a nd Orthopaedi cs (31460) Bilirubin (total) 0.50 0.20-1.00 mg/dL Invalid 04-19-2016 - [facility] Interpretation 04-19-2016 [facility] er Sports Code Medicine a nd Orthopaedi cs ([id number]) Globulin 3.5 2.3-3.5 g/dL Invalid 04-19-2016 [facility] Interpretation 04-19-2016 [facility] er Sports Code Medicine a nd Orthopaedi cs ([id number]) Globulin mass conc 3.5 2.3-3.5 g/dL 04-19-2016 - [facility] (S) 04-19-2016 [facility] orts Medicine a nd Orthopaedi cs (60413) Protein 7.3 6.4-8.2 g/dL Invalid 04-19-2016 [facility] Interpretation 04-19-2016 [facility] er Sports [facility] a nd Orthopaedi cs (51152) lab report: lipid profile on 2016-04-19 Cholesterol 226 200 mg/dL High 04-19-2016 [facility] 04-19-2016 [facility] orts Medicine a nd Orthopaedi cs (02107) HDL Cholesterol 44 mg/dL Invalid 04-19-2016 - [facility] Interpretation Code 04-19-2016 [place] [facility] Medicine a nd Orthopaedi cs (66203) LDL Cholesterol 143 0-130 mg/dL High 04-19-2016 - [facility] 04-19-2016 [facility] (55871) Lipoprotein.pre-be 39 5-40 mg/dL 04-19-2016 - [facility] ta mass conc 04-19-2016 [place] [facility] Medicine a nd Orthopaedi cs (65304) Triglyceride 197 mg/dL Invalid 04-19-2016 - [facility] Interpretation Code 04-19-2016 [place] [facility] Medicine a nd Orthopaedi cs (61440) very low density 39 5-40 mg/dL Invalid 04-19-2016 - [facility] lipoproteins Interpretation Code 016 [place] [facility] Medicine a nd Orthopaedi cs (23905) clinical lists update: preload on 2015-04-08 Erythrocyte 14.7 % 04-08-2015 [facility] distribution width 04-08-2015 [place] [facility] Ratio (RBC) Medicine and Orthopaedi cs (34512) Erythrocytes (RBC) 5.05 10*6/uL High 04-08-2015 - [facility] 04-08-2015 [facility] orts Medicine a nd Orthopaedi cs (71313) Hematocrit (HCT) 46.4 % Invalid 04-08-2015 - [facility] Interpretation Code 04-08-2015 [place] [facility] Medicine a nd Orthopaedi cs ([id number]) Hematocrit Volume 46.4 % 04-08-2015 - [facility] Fraction (Bld) 04-08-2015 Cent [facility] Medicine a nd Orthopaedi cs (65714) Hemoglobin (HGB) 15.0 g/dL Invalid 04-08-2015 - [facility] Interpretation Code 04-08-2015 [place] [facility] Medicine a nd Orthopaedi cs (29091) MCH 29.8 pg Invalid 04-08-2015 [facility] Interpretation Code 04-08-2015 [place] [facility] Medicine a nd Orthopaedi cs (24647) MCH Entitic mass 29.8 pg 04-08-2015 - [facility] (RBC) 04-08-2015 [place] Sp [facility]ts Medicine a nd Orthopaedi cs (57536) MCHC 32.4 g/dL Invalid 04-08-2015 [facility] Interpretation Code 04-08-2015 [place] [facility] Medicine a nd Orthopaedi cs (79111) MCHC mass conc 32.4 g/dL 04-08-2015 - [facility] (RBC) 04-08-2015 [place] Sp [facility]ts Medicine a nd Orthopaedi cs (66202) MCV 92.0 fL Invalid 04-08-2015 [facility] Interpretation Code 04-08-2015 [place] [facility] Medicine a nd Orthopaedi cs (42527) MCV Entitic volume 92.0 fL 04-08-2015 - [facility] (RBC) 04-08-2015 [place] Sp [facility] Medicine a nd Orthopaedi cs (83650) Platelet mean 9.4 fL 04-08-2015 - [facility] volume Entitic 04-08-2015 [facility] er Sports volume (Bld) Medicin e and Orthopaedi cs (30697) Platelets 201 10*3/mm3 Invalid 04-08-2015 [facility] Interpretation Code 04-08-2015 [place] [facility] Medicine a nd Orthopaedi cs (09209) Platelets #/vol 201 10*3/mm3 04-08-2015 - [facility] (Bld) 04-08-2015 [place] Sp [facility] Medicine a nd Orthopaedi cs (94657) PMV by Aston 9.4 fL Invalid 04-08-2015 - [facility] Interpretation Code 04-08-2015 [place] [facility] Medicine a nd Orthopaedi cs (38700) RBC #/vol (Bld) 5.05 10*6/uL High 04-08-2015 - [facility] 04-08-2015 [place] [facility] Medicine a nd Orthopaedi cs (26355) RDW-CA 14.7 % Invalid 04-08-2015 [facility] Interpretation Code 04-08-2015 [facility] a nd Orthopaedi cs ([id number]) WBC #/vol (Bld) 7.4 10*9/L 04-08-2015 - [facility] 04-08-2015 [facility] (21671) WBC (Leukocytes) 7.4 10*9/L Invalid 04-08-2015 - [facility] Interpretation Code 04-08-2015 [facility] a nd Orthopaedi cs ([id number]) clinical lists update: preload on 2015-04-07 Globulin 3.0 g/dL Invalid 04-07-2015 - [facility] Interpretation 04-07-2015 [facility] er [facility] Medicine a nd Orthopaedi cs (85241) Globulin mass conc 3.0 g/dL 04-07-2015 - [facility] (S) 04-07-2015 [facility] a nd Orthopaedi cs (76578) Thyroid stimulating 1.450 u[iU]/mL Invalid 04-07-2015 - [facility] hormone (TSH) Interpretation 04-07-2015 [facility] a nd Orthopaedi cs ([id number]) Thyroxine (T4) free 1.20 ng/dL Invalid 04-07-2015 - [facility] Interpretation 04-07-2015 [facility] Medicine a nd Orthopaedi cs ([id number]) Triiodothyronine (T3) 2.87 pg/mL Invalid 04-07-20 - [facility] free Interpretation 04-07-2015 [facility] Medicine a nd Orthopaedi cs ([id number]) office visit: mmm o n 2015-01-06 cardiac risk group C Invalid 01-06-2015 [facility] Interpretation Code 01-06-2015 [facility] ([id number]) General N/A [facility]-06 [facility] Medicine disease 10Y risk [#] and Orthopaedics [place]Johnnie ([id number]) lab report: liver profile on 2015-01-06 ALK P 130 50-136 U/L [facility] (78123) GE use only - 130 50-136 U/L [facility] Interpretation Code 2014 [facility] import when and Orth opaedics terms are not ([id number] ) otherwise specified lab report: basic metabolic profile (bmp ) on 2015-01-06 Anion gap 7 5-15 mmol/L Invalid 01-06-2015 [facility] Interpretation 01-06-2015 [facility] er [facility] a nd Orthopaedi cs ([id number]) Anion gap 7 5-15 mmol/L 01-06-2015 - [facility] molar conc 01-06-2015 [facility] a nd Orthopaedi cs ([id number]) BUN/Creatinin 20.0 10-20 Invalid 01-06-2015 - [facility] e Ratio RATIO Interpretation 01-06-2015 [facility] er [facility] a nd Orthopaedi cs ([id number]) Calcium 9.2 8.5-10.1 mg/dL Invalid 01-06-2015 - [facility] 01-06-2015 [facility] er [facility] Code Medicine a nd Orthopaedi cs ([id number]) Chloride 105 98-107 mmol/L Invalid 01-06-2015 - [facility] Interpretation 01-06-2015 [facility] er [facility] a nd Orthopaedi [facility] ([id number]) CO2 29.0 21.0-32. mmol/L Invalid 01-06-2015 - [facility] 0 Interpretation 01-06-2015 [facility] Sports Code Medicine a nd Orthopaedi cs ([id number]) CO2 ppres 29.0 21.0-32. mmol/L 01-06-2015 - [facility] (BldV) 0 01-06-2015 [facility] ([id number]) Glucose 81 70-110 mg/dL Invalid 01-06-2015 - [facility] Interpretation 01-06-2015 [facility] er Sports Code Medicine a nd Orthopaedi cs ([id number]) Glucose mass 81 70-110 mg/dL 01-06-2015 - [facility] conc 01-06-2015 [facility] a nd Orthopaedi cs ([id number]) Potassium 4.1 3.5-5.1 mmol/L Invalid 01-06-2015 - [facility] ([id number]) Sodium 141 136-145 mmol/L Invalid 01-06-2015 [facility] ([id number]) Urea nitrogen 16 7-18 mg/dL Invalid 01-06-2015 - [facility] Interpretation 01-06-2015 [facility] a [facility] Orthopaedi cs ([id number]) clinical lists update: preload on 2014-12-20 LDL Cholesterol 141 mg/dL High [facility] and Orthopaedi cs ([id number]) Magnesium 2.0 mg/dL Invalid 12-20-2014 - [facility] Interpretation Code 12-20-2014 [facility] ([id number]) replaced document: midopp ecg observati ons on 2014-02-17 EKG QRS axis -8 deg 02-17-2014 - [facility] 02-17-2014 [facility] orts Medicine a nd Orthopaedi cs ([id number]) electrocardiogram Sinus Rhythm Invalid - [facility] interpretation -Left atrial Interpretation 014 [place] [facility] enlargement . Code Medici ne and -Old Orthopaedi cs inferior-apica (4469 1) l infarct . ABNORMAL Interpretation Sinus Rhythm 02-17-2014 - [facility] -Left atrial 02-17-2014 [place] [facility] enlargement . Medici ne and -Old Orthopaedi cs inferior-apica (4469 1) l infarct . ABNORMAL P Fyffe 43 deg 02-17-2014 - [facility] 02-17-2014 [facility] orts Medicine a nd Orthopaedi cs ([id number]) P wave axis, 43 deg Invalid 02-17-2014 - [facility] electrocardiogram Interpretation 014 [place] [facility] a [facility] Orthopa[facility] (41043) WI Interval 142 ms 02-17-2014 - [facility] 02-17-2014 [facility] orts Medicine a nd Orthopaedi cs (53894) WI interval, 142 ms Invalid 02-17-2014 - [facility] electrocardiogram Interpretation 014 [place] [facility] a [facility] Orthopa[facility] ([id number]) Pulse (Heart Rate) 91 BPM /min Invalid 02-17-2014 - [facility]2014 [facility] a [facility] ([id number]) Pulse (Heart Rate) 439 ms Invalid 02-17-2014 - [facility] 02-17-2014 [facility] a nd Orthopaedi cs ([id number]) QRS axis, -8 deg Invalid 02-17-2014 - [facility] electrocardiogram Interpretation 014 [place] [facility] a [facility] ([id number]) QRS Duration 94 ms 02-17-2014 - [facility] 02-17-2014 [place] [facility] ([id number]) QRS duration, 94 ms Invalid 02-17-2014 - [facility] electrocardiogram Interpretation 014 [place] [facility] ([id number]) QT Interval new path ms 02-17-2014 - [facility] 02-17-2014 [place] [facility] ([id number]) QT interval, new path ms Invalid 02-17-2014 - [facility] electrocardiogram Interpretation 014 [place] [facility] ([id number]) T Fyffe 37 deg 02-17-2014 - [facility] 02-17-2014 [place] [facility]opa[facility] ([id number]) T wave axis, 37 deg Invalid 02-17-2014 - [facility] electrocardiogram Interpretation 014 [place] [facility] ([id number]) Vital Signs Vital Sign Description Value / Unit Date Location The following section is limited to 5 en tries per type and includes entries from the following time range: 20170117 - 20170620 9. BMI (Body Mass Index) 24.34 kg/m2 07-17-2017 - 07-17-2017 [facility] ([id number]) BMI (Body Mass Index) 24.66 kg/m2 01-17-2017 - 01-17-2017 [facility] Ort hopaedics (01575) Body Temperature 99.39 [degF] 07-30-2020 [facility] (57492) Body weight 61.69 kg 07-30-2020 [facility] ([id number]) BP Diastolic 78 mm[Hg] 07-30-2020 [facility] ([id number]) BP Diastolic 64 mm[Hg] 07-17-2017 - 07-17-2017 [facility] (12978) BP Diastolic 82 mm[Hg] 01-17-2017 - 01-17-2017 [facility] ([id number]) BP Systolic 122 mm[Hg] 07-30-2020 [facility] (31568) BP Systolic 96 mm[Hg] 07-17-2017 - 07-17-2017 [facility] ([id number]) BP Systolic 102 mm[Hg] 01-17-2017 - 01-17-2017 [facility] (69773) BSA (Body Surface Area) 1.73 m2 07-11-2016 - 07-11-2016 [facility] hopaedics ([id number]) Heart rate 91 /min 02-17-2014 - 02-17-2014 [facility] ([id number]) Heart rate 439 ms 02-17-2014 - 02-17-2014 [facility] ([id number]) Height 165.1 cm 07-17-2017 - 07-17-2017 [facility] (01922) Height 165.1 cm 01-17-2017 - 01-17-2017 [facility] ([id number]) Pulse (Heart Rate) 90 /min [id number] Pulse (Heart Rate) 64 /min 07-17-2017 - 07-17-2017 [facility] ([id number]) Pulse (Heart Rate) 78 /min 01-17-2017 - 01-17-2017 [facility] hopaed[facility] ([id number]) Pulse Oximetry 96 % 07-30-2020 [facility] ([id number]) Pulse Oximetry 98 % 02-17-2014 - 02-17-2014 [facility] (31122) Respiratory Rate 16 /min [facility] Respiratory Rate 20 /min 07-17-2017 - 07-17-2017 [facility] (42656) Respiratory Rate 18 /min 01-17-2017 - [facility] (80731) Weight 66.36 kg 07-17-2017 - 07-17-2017 [facility] (33387) Weight 67.22 kg 01-17-2017 - 01-17-2017 [facility] (57731) Encounters Date Type Reason Provider Location 12-21-2017 - Ambulatory Peripheral vascular YOGESH ONOFRE Facil ity:[place] 12-21-2017 disease, unspecified [facility] 07-30-2020 - Patient encounter Cough Sophie (Mya) [facility] 07-30-2020 procedure Chuy Xr [facility] [place] Comment: Suspected COVID-19 virus inf ection (Primary Dx); Cough Radiology XR 08-02-2020 - 08-02-2020 Telephone encounter Alexander Bradford [facility] Comment: Results Procedures Procedure Name Date Provider Location Radiologic exam chest 2 07-30-2020 - Sophie (Mya) [facility] views 07-30-2020 ([id number]) Follow Up Appt 1 year 07-17-2017 - Orlando Jacob MD [facility] 07-17-2017 ([id number]) MM 07-17-2017 - Orlando Jacob MD [place] 07-17-2017 ([id number]) COMMISSIONER OF RELOCATION SERVICES 01-17-2017 - Betsey Cheema [facility] er 01-17-2017 [facility] ([id number]) Follow Up Appt 6 months 01-17-2017 - Betsey Cheema [facility] 01-17-2017 [facility] ([id number]) Follow Up Appt 6 months 07-11-2016 - Orlando Jacob MD [facility] 07-11-2016 [facility] (44 691) MM 07-11-2016 - Orlando Jacob MD [facility] Medical nter 07-11-2016 [facility] ([id number]) *Hepatic Function Panel 04-19-2016 - Betsey Cheema [facility] 04-19-2016 [facility] (44 691) Lipid panel [AGGREGATE] 04-19-2016 - Betsey Cheema [facility] 04-19-2016 [facility] (44 691) [facility] 01-20-2016 - [facility] 01-20-2016 ([id number]) COMMISSIONER OF RELOCATION SERVICES 01-11-2016 - Betsey Cheema [facility] 01-11-2016 [facility] ([id number]) Follow Up Appt 6 months 01-11-2016 - Betsey Cheema [facility] 01-11-2016 [facility] ([id number] [id number]) Follow Up Appt Other 01-11-2016 - Betsey Anette [facility] 01-11-2016 [facility] ([id number]) *Hepatic Function Panel 10-13-2015 - Betsey Cheema [facility] 10-13-2015 [facility] (44 691) Lipid panel [AGGREGATE] 10-13-2015 - Betsey Cheema [facility] 10-13-2015 [facility] (44 691) Vascular Surgery 07-15-2015 - Orlando Jacob MD [facility] Medical C enter 01-11-2016 [facility] (44 [id number]) Follow Up Appt 6 months 07-13-2015 - Orlando Jacob MD [facility] dical Center 07-13-2015 [facility] ([id number] [id number]) Follow Up Appt Other 07-13-2015 - Orlando Jacob MD [facility] Medic ut Center 01-11-2016 [facility] (44 691) MMM 07-13-2015 - Orlando Jacob MD [facility] Medical Ce nter 07-13-2015 [facility] ([id number]) *Hepatic Function Panel 05-28-2015 - Betsey Cheema [facility] 07-13-2015 [facility] (44 691) Lipid panel [AGGREGATE] 05-28-2015 - Betsey Cheema [facility] 07-13-2015 [facility] (44 [id number]) *Hepatic Function Panel 02-17-2015 - Betsey Cheema [facility] 04-14-2015 [facility] (44 691) Lipid panel [AGGREGATE] 02-17-2015 - eBtsey Cheema [facility] 04-14-2015 [facility] (44 [id number]) *BMP 01-06-2015 [facility] 01-06-2015 [facility] (44 691) COMMISSIONER OF RELOCATION SERVICES 01-06-2015 - Betsey Cheema [facility] er 01-06-2015 [facility] (44 691) Documentation of current [facility]-06-2015 [facility]-2015 [facility] (44 [id number]) Follow Up Appt 6 months 01-06-2015 - Betsey Cheema [facility] 01-06-2015 [facility] (44 691) Smoking cessation education 01-06-2015 - Betsey M [facility] 01-07-2015 [facility] (44 [phone]) *Hepatic Function Panel 12-20-2014 - [facility] 01-07-2015 [facility] (44 691) Lipid panel [AGGREGATE] 12-20-2014 - Orlando Jacob MD [facility] dical Center 12-24-2014 [facility] (44 [phone]) *Hepatic Function Panel 07-10-2014 - [facility] 07-10-2014 [facility] (44 [phone]) Follow Up Appt 6 months 07-10-2014 - Orlando Jacob MD [facility] dical Center 07-10-2014 [facility] (44 691) Lipid panel [AGGREGATE] 07-10-2014 - Orlando Jacob MD [facility] dical Center 07-10-2014 [facility] (44 691) MMM 07-10-2014 - Orlando Jacob MD [facility] Medical Ce nter 07-10-2014 [facility] (44 691) 24 hour holter monitor 02-17-2014 - [facility] 03-03-2014 [facility] (44 [phone]) Echocardiography 02-17-2014 - [facility] [address] 03-02-2014 LUDWIG Lind[facility] (44 691) Electrocardiogram, complete 02-17-2014 - [facility] 02-17-2014 LUDW[facility] (44 [phone]) Follow Up Appt Other 02-17-2014 - [facility] 02-17-2014 [facility] (44 691) Nuclear stress test 02-17-2014 - [facility] -adenosine 02-27-2014 [facility] (44 [phone]) COMMISSIONER OF RELOCATION SERVICES 12-24-2013 - [facility] er 02-17-2014 LUDW[facility] (44 [phone]) Follow Up Appt 6 months 12-24-2013 - [facility] 02-17-2014 LUDWIG Lindquist [facility] (44 [phone]) *CBC with Differential 09-24-2013 - Orlando Jacob MD [facility] Med ical Center 12-16-2013 [facility] ([id number] [phone]) Echocardiography 09-24-2013 - Orlando Jacob MD [facility] Medical C enter 12-16-2013 [facility] (44 691) MMM 09-24-2013 - Orlando Jacob MD [facility] Medical Ce nter 12-16-2013 [facility] ([id number] [phone]) Follow Up Appt 1 year 05-21-2012 - Orlando Jacob MD [facility] 05-21-2012 [facility] (44 691) Electrocardiogram, complete 11-23-2011 - Orlando Jacob MD [facility] 11-23-2011 [facility] (44 [phone]) Follow Up Appt 6 months 11-23-2011 - [facility] 11-23-2011 [facility] (44 691) Nuclear stress test 11-23-2011 - [facility] -adenosine 05-21-2013 [facility] (44 691) Mammography 08-26-2009 - [facility] 08-26-2009 ([id number]) Plan of Treatment Plan Description Date Location COLONOSCOPY COLONOSCOPY 01-19-2021 - [facility] 01-19-2021 ([id number]) INFLUENZA (#1) INFLUENZA (#1) 2020 - [facility] 07-20-2020 ([id number]) ADVANCE DIRECTIVE ADVANCE DIRECTIVE 2019 - [facility] inic DISCUSSION DISCUSSION 2019 ([id number]) BONE DENSITY BONE DENSITY 2019 - [facility] 2019 ([id number]) PNEUMOVAX AGE 65 AND OVER PNEUMOVAX AGE 65 AND 2019 - [facility] WITH [facility] LOOKBACK (#1) OVER WITH 5YR LOOKBACK 2019 ([id number]) (#1) Appointment Appointment 07-17-2018 - [facility] 07-17-2018 ([id number]) Appointment Appointment 07-17-2017 - [facility] Medical [facility] er 07-17-2017 [facility] ([phone]) Appointment Appointment 07-17-2017 - [facility] er 07-17-2017 [facility] ([phone]) *Hepatic Function Panel *Hepatic Function Panel 07-17-2017 - [facility] 07-17-2017 ([id number]) Follow Up Appt 1 year Follow Up Appt 1 year 07-17-2017 [facility] 07-17-2017 ([id number]) *Lipid Profile CC PCP *Lipid Profile CC PCP 07-17-2017 - [facility] 07-17-2017 ([id number]) MMM MMM 07-17-2017 - [facility] 07-17-2017 ([id number]) Appointment Appointment 06-21-2017 [facility] (44 691) X-Ray, Shoulder X-Ray, Shoulder 06-21-2017 [facility] er 06-21-2017 [facility] (44 [phone]) *Hepatic Function Panel *Hepatic Function Panel 04-19-2017 [facility] 04-21-2016 [facility] (44 [phone]) *Lipid Profile CC PCP *Lipid Profile CC PCP 04-19-2017 [facility] 04-21-2016 [facility] (44 [phone]) X-Ray, Spine, Lumbar, X-Ray, Spine, Lumbar, 04-12-2017 [facility] complete with bending complete with bending 04-12-2017 [facility] Medicine and views views Orthopaedics (44 691) [facility] 01-17-2017 [facility] er 01-17-2017 [facility] (44 [phone]) Follow Up Appt 6 months Follow Up Appt 6 months 01-17-2017 [facility] 01-17-2017 [facility] (44 [phone]) LIPID SCREEN LIPID SCREEN 12-08-2016 [facility] 12-08-2016 ([id number]) DTAP,TDAP,TD (2 - Tdap) DTAP,TDAP,TD (2 - Tdap) 08-23-2016 - [facility] 08-23-2016 ([id number]) DIABETES SCREEN DIABETES SCREEN 08-19-2016 - [facility] 08-19-2016 ([id number]) Follow Up Appt 6 months Follow Up Appt 6 months 07-11-2016 - [facility] 07-11-2016 [facility] (44 691) MMM MMM 07-11-2016 [facility] er 07-11-2016 [facility] (44 [phone]) *Hepatic Function Panel *Hepatic Function Panel 04-19-2016 [facility] 04-19-2016 [facility] (44 691) *Lipid Profile CC PCP *Lipid Profile CC PCP 04-19-2016 [facility] 04-19-2016 [facility] (44 691) [facility] 01-11-2016 [facility] er 01-11-2016 [facility] (44 [phone]) Follow Up Appt 6 months Follow Up Appt 6 months 01-11-2016 [facility] 01-11-2016 [facility] (44 [phone]) Follow Up Appt Other Follow Up Appt Other 01-11-2016 [facility] 01-11-2016 [facility] (44 [phone]) *Hepatic Function Panel *Hepatic Function Panel 10-13-2015 [facility] 10-13-2015 [facility] (44 691) *Lipid Profile CC PCP *Lipid Profile CC PCP 10-13-2015 [facility] 10-13-2015 [facility] (44 691) Vascular Surgery Kam Vascular Surgery Kam 07-15-2015 [facility] MD Elijah, [address] Nba Nava MD, 1445 07-15-[address] [facility] [address] [facility] [place]opa[place]ics ([address]) [place], [address] [address], [place], [address] Follow Up Appt 6 months Follow Up Appt 6 months 07-13-2015 [facility] 07-13-2015 [facility] (44 [phone]) Follow Up Appt Other Follow Up Appt Other 07-13-2015 [facility] 01-11-2016 [facility] (44 691) MMM MMM 07-13-2015 [facility] er 07-13-2015 [facility] (44 [phone]) *Hepatic Function Panel *Hepatic Function Panel 05-28-2015 [facility] 07-13-2015 [facility] (44 [phone]) *Lipid Profile CC PCP *Lipid Profile CC PCP 05-28-2015 [facility] 07-13-2015 [facility] (44 [phone]) *Hepatic Function Panel *Hepatic Function Panel 02-17-2015 [facility] 04-14-2015 [facility] (44 [phone]) *Lipid Profile CC PCP *Lipid Profile CC PCP 02-17-2015 [facility] 04-14-2015 [facility] (44 691) *BMP *BMP 01-06-2015 [facility] er 01-06-2015 [facility] (44 [phone]) COMMISSIONER OF RELOCATION SERVICES COMMISSIONER OF RELOCATION SERVICES 01-06-2015 [facility] er 01-06-2015 [facility] (44 [phone]) Follow Up Appt 6 months Follow Up Appt 6 months 01-06-2015 - [facility] 01-06-2015 [facility]opa[facility] (44 [phone]) *Hepatic Function Panel *Hepatic Function Panel 12-20-2014 - [facility] 01-07-2015 [facility] (44 [phone]) *Lipid Profile CC PCP *Lipid Profile CC PCP 12-20-2014 - [facility] 12-24-2014 [facility] (44 [phone]) *Hepatic Function Panel *Hepatic Function Panel 07-10-2014 - [facility] 07-10-2014 [facility] (44 [phone]) Follow Up Appt 6 months Follow Up Appt 6 months 07-10-2014 - [facility] 07-10-2014 [facility] (44 [phone]) *Lipid Profile CC PCP *Lipid Profile CC PCP 07-10-2014 - [facility] 07-10-2014 [facility] (44 [phone]) MMM MMM 07-10-2014 - [facility] Medical [facility] er 07-10-2014 [facility] (44 [phone]) 24 hour holter monitor 24 hour holter monitor 02-17-2014 - [facility] 02-17-2014 [facility] (44 [phone]) Echocardiogram (complete) Echocardiogram 02-17-2014 - [facility] (complete) 02-17-2014 [facility] (44 691) EKG (In office) EKG (In office) 02-17-2014 [facility] Medical [facility] er 02-17-2014 [facility] (44 [phone]) Follow Up Appt Other Follow Up Appt Other 02-17-2014 - [facility] 02-17-2014 [facility] (44 [phone]) Nuclear stress test Nuclear stress test 02-17-2014 - [facility] -adenosine -adenosine 02-17-2014 [facility] (44 [phone]) COMMISSIONER OF RELOCATION SERVICES COMMISSIONER OF RELOCATION SERVICES 12-24-2013 - [facility] Medical Cent er 02-17-2014 [facility] (44 [phone]) Follow Up Appt 6 months Follow Up Appt 6 months 12-24-2013 - [facility] 02-17-2014 [facility] (44 [phone]) *CBC with Differential *CBC with Differential 11-06-2013 - [facility] 12-16-2013 [facility] (44 [phone]) Follow Up Appt 3 months Follow Up Appt 3 months 09-24-2013 - [facility] 12-16-2013 [facility] (44 [phone]) MMM MMM 09-24-2013 - [facility] Medical Cent er 12-16-2013 [facility] (44 [phone]) Follow Up Appt 1 year Follow Up Appt 1 year 05-21-2012 - [facility] 05-21-2012 [facility] (44 [phone]) EKG (In office) EKG (In office) 11-23-2011 - [facility] Medical Cent er 11-23-2011 [facility] (44 [phone]) Follow Up Appt 6 months Follow Up Appt 6 months 11-23-2011 - [facility] 11-23-2011 [facility] (44 691) Nuclear stress test Nuclear stress test 11-23-2011 - [facility] -adenosine -adenosine 11-23-2011 [facility] (44 [phone]) MAMMOGRAM MAMMOGRAM 08-26-2010 - [facility] 08-26-2010 ([id number]) SHINGRIX VACCINE (1 of 2) SHINGRIX VACCINE (1 of 2004 - [facility] 2) 2004 (43232) HEPATITIS C SCREENING HEPATITIS C SCREENING 1972 - [facility] 1972 (00681) Patient education no information [facility] Medical Ce nter [facility] Orthopa[facility]ics (44 691) Immunizations Vaccine Notes Status Date Location DT(PEDIATRIC) diphtheria and tetanus (completed) 08-23-2006 - [facility] toxoids, adsorbed for 08-23-2006 (28065 ) pediatric use Influenza Vaccine, influenza virus (completed) 07-20-2011 - [facility] Split-Non Spec vaccine, unspecified 07-20-2011 (4419 5) formulation Influenza Vaccine, influenza virus (completed) 09-01-2009 - [facility]-Non Spec vaccine, unspecified 09-01-2009 (4419 5) formulation Influenza Vaccine, influenza virus (completed) 09-18-2008 - [facility]-Non Spec vaccine, unspecified 09-18-2008 (4419 5) formulation Influenza Seasonal influenza, high dose (completed) 08-13-2019 - [facility] - High Dose - Age seasonal, 08-13-2019 (48593) 65+ preservative-free Pneumovax pneumococcal (completed) 08-19-2008 - [facility] polysaccharide vaccine, 08-19-2008 ([phone]) 23 valent Payers Payer Name Policy Number Location [employer], [facility] [id number] [facility] ([id number]) MEDICAID MEDPAY [id number] [facility] (44 195) [employer] [id number] [facility] ([id number]) The following information is from the original human readable contentNo Payer Records FoundNo Payer Records FoundNo Payer Records Found Social History Type Social History Date Location Description Tobacco smoking status Current every day smoker 07-30-2020 - [facility] NHIS 07-30-2020 ([id number]) Cigarettes smoked 07-30-2020 - [facility] current (pack per day) 07-30-2020 ([id number]) - Reported Tobacco use and Never used 07-30-2020 - [facility] exposure 07-30-2020 ([id number]) Alcohol intake Not Asked 07-30-2020 - [facility] 07-30-2020 ([id number]) Sex Assigned At Not on file [facility] ([id number]) Exposure to SARS-CoV-2 Not sure [facility] (event) ([id number]) The following information is from the original human readable contentNo Social History Records FoundNo Social History Records FoundNo Social History Records FoundNo Social History Records FoundNo Social History Records Found Summary Purpose Family History No Family History Records FoundNo Family History Records FoundNo Family History Records Found Advance Directives Documents on File Type Date Recorded 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 Advance Directive(s) 12/30/2015 6:47 PM Advance Directive(s) 01/19/2016 12:44 PM Advance Directive(s) 01/20/2016 10:08 AM Advance Directive(s) 01/20/2016 1:23 PM History of Past Illness Problem Noted Date Resolved Date History of adenomatous polyp of colon 01/20/2016 Chronic GERD 01/20/2016 01/20/2016 Problem Noted Date Resolved Date History of adenomatous polyp of colon 01/20/2016 Chronic GERD 01/20/2016 01/20/2016 History of Present Illness Sophie Vera (Mya) - 07/30/2020 1:07 PM EDT Subjective HPI HPI Angélica Waller is a 65 year old female who presents today for CC of cough, fever, diarrhea. This started few hours ago. Has tried nothing for relief. Symptoms are worsened by nothing. Risk factorshx of MS and is long time smoker. Denies sore throat, body aches, loss sense taste/smell, sob. .Patient presents with: Cough: chest congestion, low grade fever x this am PAST MEDICAL HISTORY Diagnosis Date ? Allergic rhinitis, cause unspecified ? Bulging discs ? Carotid artery stenosis, asymptomatic ? Cervical spinal stenosis ? Foot drop wears AFO ? Multiple sclerosis (HCC) ? Osteoporosis ? Other psoriasis and similar disorders psoriatic arthritis ? Peripheral vascular occlusive disease (HCC) ? Scoliosis ? TIA (transient ischemic attack) PAST SURGICAL HISTORY Procedure Laterality Date ? BREAST BIOPSY X 2, left ? BX BREAST PERC VACUUM/ROTN 09-24-09 BILAT ? DELIVERY ONLY , low cervical ? DELIVERY ONLY , low cervical ? COLONOSCOP W/ OR W/O BRSH SPEC 01/20/16 Colonoscopy with mac ? COLONOSCOPY ? EGD W/O OR W/BRUSH/WASH 01/20/16 EGD ? HEMORRHOID;BAND LIGAT, SNGL/MUL Hemorrhoidectomy ? LAPAROSCOPIC CHOLEYCYSTECTOMY 12/06/10 Chronic - Dome Down ? PAST SURGICAL HISTORY OF 03/2010 pain pump- removed 07/2011 ? [facility],PERC,DURING BREAST BX 09-24-09 BILAT ? REMV LENS MATERIAL,PHACOFRAGMT Cataract Extraction ? THYROID LOBECTOMY,UNILAT 11/30/2005 LEFT THYROID WITH ISTHMUTH ? TOTAL ABDOM HYSTERECTOMY ALSO BILATERAL OOPHORECTOMY ? TOTAL ABDOM HYSTERECTOMY Hysterectomy, CARLI ALLERGIES Amitriptyline, Antihistamines, Asa [Salicylates], Codeine, Fentanyl, Morphine, Plavix [Clopidogrel Bisulfate], Prednisone, [id number] Reductase Inhibitors, and Tricor [Fenofibrate Micronized] MEDICATIONS albuterol HFA (VENTOLIN HFA) 90 mcg/actuation inhaler Inhale 2 Puffs as instructed every 4 hours as needed for Wheezing/Shortness of Breath. oxyCODONE IR (ROXICODONE) 10 mg tab amitriptyline (ELAVIL) 25 mg tablet Take 25 mg by mouth daily at bedtime. baclofen (GABLOFEN) 40,000 mcg/20mL (2,000 mcg/mL) injection 50 mcg by INTRATHECAL route four times daily. HYDROcodone-acetaminophen (NORCO) 5-325 mg per tablet Take 1 tablet by mouth every 6 hours as needed. clopidogrel (PLAVIX) 75 mg tablet Take 1 tablet by mouth every other day. gabapentin (NEURONTIN) 400 mg capsule Take 1 capsule by mouth three times daily. Calcium Carbonate-Vitamin D3 (VITAMIN D-3) 180-5,000 mg-unit Tab Take by mouth twice daily. levothyroxine 25 mcg ORAL tablet Take 50 mcg by mouth once daily. Melatonin 5 mg ORAL Tab Take 5 mg by mouth. As needed predniSONE (DELTASONE) 20 mg tablet Take 1 tablet by mouth twice daily. azithromycin (ZITHROMAX Z-RAMIRO) 250 mg tablet Take 1 tablet by mouth once daily. benzonatate (TESSALON PERLE) 100 mg capsule Take 2 capsules by mouth three times daily as needed. esomeprazole (NEXIUM) 40 mg capsule Take 1 capsule by mouth once daily. FAMILY HISTORY Problem Relation Age of Onset ? Hypertension Mother brain cancer ? GI Father PASSED IN 81, FROM COMPLICATIONS OF AN AAA ? other (GRAVES DISEASE) Sister Social History Tobacco Use ? Smoking status: Current Every Day Smoker Packs/day: 0.50 Years: 10.00 Pack years: 5.00 ? Smokeless tobacco: Never Used Substance Use Topics ? Alcohol use: Not on file ? Drug use: No ROS Objective Blood pressure 122/78, pulse 90, temperature 37.4 ?C (99.4 ?F), temperature source Tympanic, resp. rate 16, weight 61.7 kg (136 lb), SpO2 96 %. Exam minimized d/t covid 19 pandemic. Physical Exam Constitutional: She is oriented to person, place, and time and well-developed, well-nourished, and in no distress. Non-toxic appearance. She does not have a sickly appearance. No distress. HENT: Head: Normocephalic and atraumatic. Cardiovascular: Normal rate, regular rhythm, S1 normal, S2 normal and normal heart sounds. Pulmonary/Chest: Effort normal and breath sounds normal. Neurological: She is alert and oriented to person, place, and time. Gait normal. Skin: She is not diaphoretic. ASSESSMENT/PLAN: 1. Suspected COVID-19 virus infection - ICD9: , ICD10: Z20.828 (primary diagnosis) Push fluids, discussed otc medications Schedule f/u with pcp in 2-3 days -If you experience chest pain/shortness of breath go to ER -will test for covid 19 via [facility], call results 2. Cough - ICD9: 786.2, ICD10: R05 Discussed use of inhaler - XR CHEST 2V FRONTAL/LAT IMPRESSION: Linear atelectasis or scarring is again seen within left lower lobe. No acute pulmonary process is identified. ? Dictated by : TORO COPELAND MD Agrees to plan Sophie Vera APRN.CNP documented in this encounterLisbeth Gardner Tech (Rt) - 07/30/2020 1:27 PM EDT Radiology Service Progress Note PATIENT NAME: Angélica Waller DATE OF SERVICE: July 30, 2020 TIME: 1:27 PM PATIENT IDENTITY VERIFICATION COMPLETED USING TWO (2) IDENTIFIERS: Name and Date of confirmed by patient verbally. FALL SCREENING: Has the patient had 2 falls in the last year or 1 fall with injury or currently using an Ambulatory Assistive Device (Walker, Cane, Wheelchair, Crutches, etc.)? No PATIENT GENDER DATA: Female. status: : No status: NO. PATIENT RELEVANT IMPLANT DATA REVIEWED: Not Applicable RADIOLOGY DEPARTMENT: General X-ray: Exam(s) Completed: Chest X-Ray PERIPHERAL IV DATA: Not applicable SIGNED BY: RT Radha July 30, 2020 1:27 PM documented in this encounter Assessments Diagnosis Suspected COVID-19 virus infection - Sharon Lopez Additional Source Comments FOR RECORDS PERTAINING TO PATIENTS WHO ARE OR HAVE BEEN ENROLLED IN A CHEMICAL DEPENDENCY/SUBSTANCE ABUSE PROGRAM, SOME INFORMATION MAY BE OMITTED. This clinical summary was aggregated from multiple sources. Caution should be exercised in using it in the provision of clinical care. This summary normalizes information from multiple sources, and as a consequence, information in this document may materially changethe coding, format and clinical context of patient data. In addition, data may be omittedin some cases. CLINICAL DECISIONS SHOULD BE BASED ON THE PRIMARY CLINICAL RECORDS. [facility] provides no warranty or guarantee of the accuracy or completeness of information in this document. UNRECOGNIZED CONTENT PROVIDED BELOW FOR UNRECOGNIZED SECTION INFORMATION SOURCE DATE CREATED AUTHOR AUTHOR'S ORGANIZATIO N 05/13/2018 [facility] DATE CREATED AUTHOR AUTHOR'S ORGANIZATIO N 05/13/2018 [facility] DATE CREATED AUTHOR AUTHOR'S ORGANIZATIO N 08/02/2020 [facility] UNRECOGNIZED CONTENT PROVIDED BELOW FOR UNRECOGNIZED SECTION Source Comments In the event this information is protected by the Federal Confidentiality of Alcohol and Drug Abuse Patient Records regulations: The Federal rules restrict any use of the information to criminally investigate or prosecute any alcohol or drug abuse patient.[facility] the event this information is protected by the Federal Confidentiality of Alcohol and Drug Abuse Patient Records regulations: The Federal rules restrict any use of the information to criminally investigate or prosecute any alcohol or drug abuse patient.[facility] the event this information is protected by the Federal Confidentiality of Alcohol and Drug Abuse Patient Records regulations: The Federal rules restrict any use of the information to criminally investigate or prosecute any alcohol or drug abuse patient.[facility] UNRECOGNIZED CONTENT PROVIDED BELOW FOR UNRECOGNIZED SECTION Reason for Visit Reason Comments Cough chest congestion, low grade fever x this am Reason Comments Radiology XR Reason Onset Date Comments Results 08/02/2020 UNRECOGNIZED CONTENT PROVIDED BELOW FOR UNRECOGNIZED SECTION Miscellaneous Notes Telephone Encounter - Valerie Moscoso Ma - 08/02/2020 8:18 AM EDTPatient given results and verbalized understanding of instructions given. Valerie Moscoso Ma elephone Encounter - Valerie Moscoso Ma - 08/02/2020 8:18 AM EDT----- Message from Alexander Regalado sent at 08/02/2020 7:41 AM EDT ----- COVID test negative. documented in this encounter
== END ==
PROVIDERS: PCP Family Medicine; Visit Provider Family Medicine
DX: M79.671 Pain in right foot (principal); G35 Multiple sclerosis; E55.9 Vitamin D deficiency, unspecified; E03.9 Hypothyroidism, unspecified; D64.9 Anemia, unspecified
CPT/HCPCS: 36415; 80053; 82306; 82728; 83540; 83550; 84443; 85025

== ENCOUNTER → 2020-05-17 12:39 | Outpatient (CLI) | payer MEDICARE, MEDICAID, SELFPAY ==
--- NOTE | 2020-05-17 12:44 | CDU_ITS ---
Reason For Study: Carotid bruit Rt. Velocities/BP Lt. Velocities/BP LT CCA Inflow - 240.1/33.3 cm/sec. Prox CCA 233.1/37.4 cm/sec. Prox Anas, 362.2/19.9 cm/sec. Mid CCA 213.8/36.4 cm/sec. Prox graft, 243.3/17.1 cm/sec. Dist CCA 124.8/27.8 cm/sec. Mid graft, 200.2/18.9 cm/sec Prox ICA 151.8/35.2 cm/sec. Dist graft, 157.8/15.7 cm/sec Mid ICA 146.6/32.6 cm/sec. Dist Anas, 377.3 cm/sec. Dist ICA 125.9/43 cm/sec. Prox CCA 131.3 cm/sec. Lt. ICA/CCA = 0.7. Mid CCA 120.4 cm/sec. Prox ECA 105.2/6.7 cm/sec. Dist CCA 165.3 cm/sec. Lt. Vert. 43.5/12.7 cm/sec. Prox ICA 283.3/34.9 cm/sec. Mid ICA 100/19.7 cm/sec. Dist ICA 105.2/30 cm/sec. Prox ECA 369.9/16.5 cm/sec. Rt. Vert. 32.5/8.4 cm/sec. Right Extracranial There is heterogeneous, irregular atherosclerotic plaque noted in the right common carotid artery. Retrograde flow noted in the right CCA. There is heterogeneous, irregular atherosclerotic plaque noted in the right internal carotid artery. There is heterogeneous, irregular atherosclerotic plaque noted in the right external carotid artery. Abnormal waveform noted in the right vertebral artery. Left Extracranial There is homogeneous, smooth atherosclerotic plaque noted in the left common carotid artery. There is heterogeneous, irregular atherosclerotic plaque noted in the left internal carotid artery. There is heterogeneous, irregular atherosclerotic plaque noted in the left external carotid artery. Antegrade flow is noted in the left vertebral artery. Procedure Carotid Duplex [id number]. Exam performed in department. Interpretation Summary Stenosis noted proximal and distal bypass graft on right. Moderate (50-69%) stenosis left extracranial internal carotid. Flow within the right verterbral artery is retrograde, consistent with a subclavian steal phenomenon. Flow within the left verterbral artery is antegrade. Ordering Physician: Daron Benton Referring Physician: Daron Benton Performed By: Tena Davidson RVT
== END ==
PROVIDERS: PCP Family Medicine; Referring Provider Family Medicine; Visit Provider Family Medicine
DX: R09.89 Other specified symptoms and signs involving the circulatory and respiratory systems (principal)
CPT/HCPCS: 93880

== ENCOUNTER → 2020-06-14 06:06 | Outpatient (CLI) | payer MEDICARE, MEDICAID, SELFPAY ==
[2020-06-01 09:21] VITALS: BMI 21.3
--- NOTE | 2020-06-14 12:26 | STRESSREP ---
Stress Test Report Pharmacologic myocardial perfusion stress test. 64-year-old lady with a history of chest pain peripheral vascular disease and severe hypertension. Stress protocol: Resting EKG demonstrates sinus bradycardia with a rate of 53 bpm normal intervals are noted resting blood pressure was 110/80 mmHg. 0.4 mg of regadenoson was infused per usual protocol followed by rapid intravenous saline flush injection continuous EKG monitoring was performed. The patient was noted to be in sinus rhythm however during recovery at approximately 1 minute and 47 seconds patient was noted to be in a narrow complex tachycardia with a rate of approximately 150 bpm. Patient spontaneously broke out of this. During recovery there were also periods of premature atrial complexes noted. No ST or T wave changes were noted to suggest ischemia. The resting blood pressure was 110/80 with a peak blood pressure 158/98 mmHg. Myocardial perfusion protocol. 11.5 mCi of technetium 99m sestamibi was injected at rest. 0.4 mg of regadenoson was infused per usual protocol. At peak infusion 32.2 mCi of technetium 99m sestamibi was injected stress images were obtained stress and rest images were reconstructed and compared in the short axis vertical and horizontal long axis. Gated images were also obtained Perfusion SPECT analysis: Review of the stress images demonstrate normal perfusion in all areas of the myocardium. The resting images similarly demonstrate normal perfusion in all areas of the myocardium no areas of reversibility are noted suggest ischemia no previous infarct is noted. Gated SPECT analysis: The gated ejection fraction is 83%. Conclusion: Normal pharmacologic myocardial perfusion stress test. Preserved ejection fraction. Paroxysmal supraventricular tachycardia noted.
== END ==
PROVIDERS: PCP Family Medicine; Referring Provider Physician Assistant Medical; Visit Provider Physician Assistant Medical
DX: R07.9 Chest pain, unspecified (principal)
CPT/HCPCS: 78452; 93017; A9500; A4216; J2785

== ENCOUNTER → 2020-06-25 13:45 | Outpatient (CLI) | payer MEDICARE, MEDICAID, SELFPAY ==
[2020-06-01 09:21] VITALS: BMI 21.3
--- NOTE | 2020-06-25 13:48 | CT_ITS ---
STUDY: CTA NECK WITH CONTRAST REASON FOR EXAM: Female, 64 years old. SUBCLAVIAN STENOSIS CAROTID BYPASS X 2 8-9 YEARS AGO. NOW HEADACHE, CAN HEAR BLOOD ISN''T FLOWING WELL. IV RADIATION DOSAGE (If Supplied By Facility): CTDIvol = ( 14.926 ) mGy, DLP = ( 610.80 ) mGycm TECHNIQUE: CT angiography with multi-detector data acquisition was performed from the aortic arch to the skull base following intravenous administration of IV 100 ML ISOVUE 370. MIP images were reconstructed from the axial data set. Post-processing of the angiographic images was performed, with multiplanar reformation and 3D reconstruction. Individualized dose optimization techniques were used for this CT. COMPARISON: Comparison is made with prior study dated 09/05/2018. FINDINGS: AORTIC ARCH: There is a bovine origin of the great vessels arising from the aortic arch with a common origin of the brachiocephalic and left common carotid artery. Normal origin of the left subclavian artery. Mild atherosclerotic plaques of the aortic arch. There is occlusion of the brachiocephalic artery at its origin. There is a patent graft arising from the left common carotid artery to the origin of the right internal carotid artery. RIGHT CAROTID ARTERIES: Normal right common carotid artery (CCA). Normal right common carotid bulb. Normal origin of the right internal carotid (ICA) artery without a hemodynamically significant stenosis. Normal visualized cervical portion of the right internal carotid artery. There is complete occlusion of the origin of the right external carotid artery without demonstrated arterial flow. LEFT CAROTID ARTERIES: Normal left common carotid artery (CCA). Normal left common carotid bulb. There is mild atherosclerotic plaque formation of the origin of the left internal carotid artery with less than 50% cross sectional diameter stenosis. Normal visualized cervical portion of the left internal carotid artery. Normal origin of the left external carotid artery (ECA). VERTEBRAL ARTERIES: Normal bilateral vertebral arteries. CT/CTA Neck W/WO Contrast IMPRESSION: Stable examination. The graft arising from the left carotid artery to the right internal carotid artery is widely patent. Electronically Signed: Jovon Freitas, at 14:45 EDT , Service support ,
[2020-06-25 14:10] LABS: CREATININE FINGERSTICK 1.1 mg/dL (0.55-1.02)
== END ==
PROVIDERS: PCP Family Medicine; Referring Provider Surgery Vascular Surgery; Visit Provider Surgery Vascular Surgery
DX: I77.1 Stricture of artery (principal); I74.09 Other arterial embolism and thrombosis of abdominal aorta; I65.23 Occlusion and stenosis of bilateral carotid arteries; I70.1 Atherosclerosis of renal artery; I70.213 Atherosclerosis of native arteries of extremities with intermittent claudication, bilateral legs; F17.200 Nicotine dependence, unspecified, uncomplicated; G35 Multiple sclerosis; I25.10 Atherosclerotic heart disease of native coronary artery without angina pectoris; E07.9 Disorder of thyroid, unspecified; Z86.73 Personal history of transient ischemic attack (TIA), and cerebral infarction without residual deficits
CPT/HCPCS: 70498; Q9967; A4216

== ENCOUNTER → 2020-07-30 17:11 | Outpatient (CLI) | payer MEDICAID, MEDICARE, SELFPAY ==
[2020-06-01 09:21] VITALS: BMI 21.3
== END ==
PROVIDERS: PCP Family Medicine; Referring Provider Registered Nurse; Visit Provider Registered Nurse
DX: R05 Cough (principal)
CPT/HCPCS: 87635; C9803; U0003

== ENCOUNTER 2020-08-03 03:31 | Emergency (ER) | payer MEDICARE, MEDICAID, SELFPAY ==
[2020-06-01 09:21] VITALS: BMI 21.3
[2020-08-03 03:35] VITALS: BP 167/85; PULSE 73; RESP 16; TEMP 37; O2SAT 97; BMI 22.4
--- NOTE | 2020-08-03 03:40 | ED.VIS.GEN ---
History of Present Illness Chief Complaint: Shortness of Breath Informant: Patient Narrative: 65-year-old female presenting with cough and shortness of breath. She states her symptoms started on with cough as well as fevers of 101. She went to urgent care on Sunday and they checked a chest x-ray which was normal. They did not put her on any medication. She called her PCP but the urgent care had tested her for COVID so she had to wait for her COVID swab to come back. Came back today as negative and her appointment is not till later this afternoon. She still has a cough which she says is painful when she coughs. Her fevers have resolved. She has been able to eat and drink although it is diminished. She does state that her urine is dark. - Past Medical History (1) Bilateral carotid artery stenosis Status: Chronic (2) Brain aneurysm Status: Chronic Comment: s/p coiling January 2014 (3) Essential (primary) hypertension Status: Chronic (4) HLD (hyperlipidemia) Status: Chronic (5) Multiple sclerosis Status: Chronic (6) Peripheral vascular occlusive disease Status: Chronic Past Medical History - Allergies and Home Meds Allergies/Adverse Reactions: Allergies colestipol [From Colestid] Allergy (Mild, Verified 06/01/20 14:22) unknown pregabalin [From Lyrica] Allergy (Mild, Verified 06/01/20 14:22) Hives amitriptyline Allergy (Verified 06/01/20 14:22) Rash temazepam [From Restoril] Adverse Reaction (Mild, Verified 06/01/20 14:22) Nausea/Vom/Diarrhea Antihistamines - Alkylamine Adverse Reaction (Verified 06/01/20 14:22) Nausea/Vom/Diarrhea Antihistamines - Ethanolamine Adverse Reaction (Verified 06/01/20 14:22) Nausea/Vom/Diarrhea Antihistamines - Ethylenediamine Adverse Reaction (Verified 06/01/20 14:22) Nausea/Vom/Diarrhea Antihistamines - Piperazine Adverse Reaction (Verified 06/01/20 14:22) Nausea/Vom/Diarrhea Antihistamines - Piperidine Adverse Reaction (Verified 06/01/20 14:22) Nausea/Vom/Diarrhea aspirin Adverse Reaction (Verified 06/01/20 14:22) I'M ON BLOOD THINNERS codeine Adverse Reaction (Verified 06/01/20 14:22) Nausea morphine Adverse Reaction (Verified 06/01/20 14:22) Nausea Mccletv-Hft-Xva Reductase Inhibitor Adverse Reaction (Verified 06/01/20 14:22) Nausea STEROIDS BY MOUTH Adverse Reaction (Uncoded 02/15/20 09:44) Upset Stomach Primary Care Physician: Daron Benton MD [Primary Care Provider] - Surgical History: - - Carotid endarterectomy, partial thyroidectomy, , hysterectomy, cholecystectomy Smoking Status: Current every day smoker - Family History Maternal Family History: Family History (Last Reviewed 08/05/19 @ 11:[address] Orlando Jacob MD) Mother Cancer CAD (coronary artery disease) Brain tumor Grandfather CVA (cerebral vascular accident) Father CAD (coronary artery disease) Ruptured abdominal aortic aneurysm (AAA) Sister Brain aneurysm Family History: Reports: No pertinent history Paternal Family History: Family History (Last Reviewed 08/05/19 @ 11:[address] Orlando Jacob MD) Mother Cancer CAD (coronary artery disease) Brain tumor Grandfather CVA (cerebral vascular accident) Father CAD (coronary artery disease) Ruptured abdominal aortic aneurysm (AAA) Sister Brain aneurysm Family History: Reports: Heart Disease Review of Systems General: Reports: Fever, Malaise Eyes: Denies: Visual changes - bilaterally, Diplopia ENT: Denies: Rhinorrhea, Sore throat Cardiovascular: Reports: Heart racing. Denies: Chest pain, Palpitations Respiratory: Reports: Dyspnea, Cough. Denies: Sputum Gastrointestinal: Reports: Abdominal pain, Nausea, Vomiting Genitourinary: Reports: Frequency. Denies: Dysuria, Hematuria Musculoskeletal: Denies: Myalgias, Arthralgias Skin: Denies: Rash, Abscess Neurological: Reports: Headache Physical Exam General: Well nourished, No Acute Distress Head: Normocephalic, Atraumatic Eyes: Perrl, EOMI ENT: No rhinorrhea, Dry mucous membranes Cardiovascular: Regular rate, Regular rhythm Respiratory: No distress, CTA bilaterally Extremities: Nontender, No edema Skin: Normal color, No rash. Negative for: Cyanosis Neurological: Alert, Oriented x3, Cranial nerves II-XII grossly intact Psychological: Normal affect, Normal Mood Diagnostic/Tx/Re-eval Clinical Impression(s) from Imaging Studies Chest X-Ray 08/03/20 03:41 IMPRESSION: Stable hyperinflation, presumed scarring in the left base osteopenia and dextroscoliosis. No pulmonary edema, congestive heart failure or confluent pneumonia. Electronically Signed: Maryuri Weaver MD at 4:31 EDT , Service support , Laboratory Data 08/03/20 08/03/20 08/03/20 03:45 03:45 05:00 WBC 7.3 RBC 5.26 Hgb 15.1 H Hct 46.5 MCV 88.4 MCH 28.7 MCHC 32.5 RDW Std Deviation 46.4 H RDW Coeff of David 14.5 Plt Count 169 MPV 9.4 Immature Gran % (Auto) 0.300 Neut % (Auto) 73.5 H Lymph % (Auto) 14.0 L [place] % (Auto) 9.8 Eos % (Auto) 1.9 Baso % (Auto) 0.5 Absolute Neuts (auto) 5.4 Absolute Lymphs (auto) 1.02 Nucleated RBC % 0 Sodium 141 Potassium 3.9 Chloride 106 Carbon Dioxide 28.0 Anion Gap 7 BUN 13 Creatinine 0.75 Estim Creat Clear Calc 51.81 Est GFR (MDRD) Af Amer 100 Est GFR (MDRD) Non-Af 82 BUN/Creatinine Ratio 17.4 Glucose 94 Calcium 9.3 Total Bilirubin 0.30 AST 16 ALT 26 Alkaline Phosphatase 138 H Troponin I < 0.015 Total Protein 7.4 Albumin 3.6 Globulin 3.8 Albumin/Globulin Ratio 0.9 Urine Color Yellow Urine Clarity Clear Urine pH 7.0 Ur Specific [place] 1.005 Urine Protein Negative Urine Glucose (UA) Normal Urine Ketones Negative Urine Occult Blood Negative Urine Nitrite Negative Urine Bilirubin Negative Urine Urobilinogen Normal Ur Leukocyte Esterase 25 H Urine RBC 0 SEEN Urine WBC 0-5 SEEN Ur Squamous Epith Cells 0-5 SEEN Urine Bacteria 0 SEEN Urine Mucus 0 SEEN - Rhythm Strip Rhythm Strip: Sinus Rhythm Rate: 60 - EKG Follow-up EKG Interpretation: Sinus Rhythm, No Acute Injury Pattern - Medical Decision Making Patient was seen and evaluated on arrival for cough and history of fever which is resolved. Her lungs are clear to auscultation. Her heart is regular rate and rhythm without murmur. Her vital signs are stable and she is afebrile. She is ambulated through the ER multiple times with pulse oximetry and does not desaturate or become tachycardic. Lab work is unremarkable. Chest x-ray is negative. Given that she has a fever I will treat her with doxycycline as well as a burst of prednisone. She states that she does not like albuterol because it makes her jittery but she does have this at home. Patient is discharged home in stable condition. She will return for any new or worsening symptoms Impression: 1. Acute bronchitis ED Disposition - Plan for ED Patient: Disposition: Home or Assisted Living Instructions: ED Upper Resp Infec Abx Tx Prescriptions: Doxycycline 100 mg PO BID 7 Days #14 cap Transmission Status: Pending to [facility] Guaifenesin [Mucinex] 600 mg PO BID #20 tab.er.12h Transmission Status: Pending to [address] predniSONE tablet 60 mg PO DAILY 5 Days #15 tab Transmission Status: Pending to [facility] Referrals: Daron Benton MD [Primary Care Provider] -
--- NOTE | 2020-08-03 03:41 | RAD_ITS ---
STUDY: X-RAY CHEST REASON FOR EXAM: Female, 65 years old. SOB AND COUGH TECHNIQUE: Single AP portable view of the chest. COMPARISON: 05/20/2019 FINDINGS: There are superimposed monitor leads. Stable hyperinflation and linear changes in the left base. There is no demonstrated pleural abnormality. Normal size heart. Normal mediastinum and david. Normal visualized pulmonary arteries. Normal visualized aortic arch and descending thoracic aorta. There is a dextroscoliosis of the thoracic spine. There is demineralization of osseous structures. There are degenerative changes of the acromioclavicular joints. There is no demonstrated abnormality of the visualized soft tissue structures of the upper abdomen. RAD/Chest 1 View (Portable) IMPRESSION: Stable hyperinflation, presumed scarring in the left base osteopenia and dextroscoliosis. No pulmonary edema, congestive heart failure or confluent pneumonia. Electronically Signed: Maryuri Weaver MD at 4:31 EDT , Service support ,
--- NOTE | 2020-08-03 03:43 | EKG12_ITS ---
Test Reason : DYSRHYTHMIA Blood Pressure : / mmHG Vent. Rate : 060 BPM Atrial Rate : 060 BPM P-R Int : 144 ms QRS Dur : 092 ms QT Int : 458 ms P-R-T Axes : 057 024 050 degrees QTc Int : 458 ms Normal sinus rhythm Possible Left atrial enlargement Borderline ECG Confirmed by ALAN FOX, JOSELITO ([id number]), editor continuity and script SELAM BARRETO ([id number]) on 08/09/2020 1:11:21 PM Referred By: HOLLIE Confirmed By:CHACHO PHILLIPS MD
[2020-08-03 03:54] VITALS: O2SAT 97
[2020-08-03 04:04] LABS: Absolute Lymphocyte Count 1.02 X10^3/uL (0.83-4.51); Absolute Neutrophil Count 5.4 X10^3/uL (2.0-7.7); Basophil# 0.04 X10^3/uL; Basophil% 0.5 % (0-1); Eosinophil# 0.14 X10^3/uL; Eosinophils% 1.9 % (0-5); Hematocrit 46.5 % (37-47); Hemoglobin 15.1 g/dL (12.0-15.0); Lymphocyte # 1.02 X10^3/ul (4.0); Mean Corp Hgb Conc 32.5 g/dL (32-36); Mean Corpuscular Hgb 28.7 pg (27.0-32.0); Mean Corpuscular Volume 88.4 fL (81-99); Mean Platelet Vol. 9.4 fl (6.2-12.0); Monocyte# 0.72 X10^3/uL; Monocyte% 9.8 % (0-10); NRBC Flagged by Analyzer 0 % (0-5); Neutrophil # 5.37 X10^3/uL (2.7-7.7); Neutrophil % 73.5 % (47-70); Platelet Count 169 K/mm3 (150-450); RBC Distribution Width CV 14.5 % (11.6-14.6); RBC Distribution Width SD 46.4 fl (35.1-43.9); Red Blood Count 5.26 M/mm3 (4.2-5.4); White Blood Count 7.3 K/mm3 (4.4-11.0)
[2020-08-03 04:19] LABS: ALB/GLOB Ratio 0.9 RATIO (0.9-2.4); AST(SGOT) 16 U/L (15-37); Alanine Aminotransfer ALT/SGPT 26 U/L (13-56); Albumin, Serum 3.6 g/dL (3.2-5.0); Alkaline Phosphatase 138 U/L (45-117); Anion Gap 7 (5-15); BUN 13 mg/dL (7-18); BUN/Creat Ratio 17.4 RATIO (10-20); Calcium,Total 9.3 mg/dL (8.5-10.1); Chloride 106 mmol/L (98-107); Creatinine, Serum 0.75 mg/dL (0.55-1.02); EST Glomerular Filtration Rate 82 mL/min (>60); Est Glom Filt Rate - Afr Amer 100 mL/min (>60); Estimated Creatinine Clearance 51.81 ml/min; Globulin 3.8 g/dL (2.2-4.2); Glucose 94 mg/dL (74-106); Potassium 3.9 mmol/L (3.5-5.1); Protein, Total 7.4 g/dL (6.4-8.2); Sodium Level 141 mmol/L (136-145)
[2020-08-03 05:01] VITALS: BP 174/99; PULSE 73; RESP 16; O2SAT 97
[2020-08-03 05:07] LABS: Color, Urine Yellow (Yellow); Glucose, Dipstick Normal (Normal); Ketone-Dipstick Negative (Negative); Leukocyte Esterase-Dipstick 25 /ul (Negative); Nitrite-Dipstick Negative (Negative); Occult Blood-Urine Negative /ul (Negative); Protein-Dipstick Negative (Negative); Specific Gravity, Urine 1.005 (1.002-1.030); Urine Bilirubin Dipstick Negative (Negative); Urine Clarity Clear (Clear); Urine Urobilinogen Normal (Normal)
[2020-08-03 05:08] LABS: Bacteria 0 SEEN /hpf (None Seen); Mucous, Urine 0 SEEN /hpf (<or=2+); Red Blood Cells-Urine 0 SEEN /hpf (0-5)
[2020-08-03 05:13] LABS: Squamous Epithelial Cells - UA 0-5 SEEN /hpf (5-10); White Blood Cells 0-5 SEEN /hpf (0-5)
[2020-08-03 05:28] VITALS: BP 154/74; PULSE 58; RESP 15; O2SAT 96
[2020-08-03] MEDS: Doxycycline 100 MG CAPSULE PO (05:33)
[2020-08-03] MEDS: predniSONE 20 MG Tablet 60 MG PO (05:33)
== END 2020-08-03 05:40 | disposition home or self-care (01) ==
PROVIDERS: Emergency Provider Student in an Organized Health Care Education/Training Program; PCP Family Medicine
DX: J20.9 Acute bronchitis, unspecified (principal); G35 Multiple sclerosis; I99.8 Other disorder of circulatory system; I10 Essential (primary) hypertension; E78.5 Hyperlipidemia, unspecified; F17.200 Nicotine dependence, unspecified, uncomplicated; Z79.899 Other long term (current) drug therapy
CPT/HCPCS: 71045; 80053; 81001; 84484; 85025; 93005; 96360; 99285; J7040; A4216

== ENCOUNTER → 2020-08-04 13:36 | Outpatient (CLI) | payer MEDICARE, MEDICAID, SELFPAY ==
[2020-06-01 09:21] VITALS: BMI 21.3
[2020-08-03 03:35] VITALS: BMI 22.4
--- NOTE | 2020-08-04 13:39 | BI_ITS ---
MAMMOGRAPHY - BILATERAL SCREENING REASON FOR EXAM: Female, 65 years old. Routine annual screening examination. PERTINENT HISTORY: Non-contributory. History of remote bilateral needle biopsies. TECHNIQUE: Digital bilateral breast jesus (3D mammographic acquisition) in the CC and MLO projections. 2-D mediolateral oblique (MLO) and craniocaudad (CC) views of both breasts were obtained. CAD: Full Field Digital Mammography with Computer Added Detection was performed. COMPARISON: Comparison is made with prior outside examination dated 01/09/2013. FINDINGS: Breast Composition: The breasts are extremely dense, which lowers the sensitivity of mammography. There are no dominant masses or suspicious calcifications. No other significant abnormalities are identified. There has been no significant change since the prior study. BI/SCREEN MAMM (CAD) W/JESUS BILAT IMPRESSION: Stable bilateral screening mammogram. Yearly follow-up mammogram recommended. (A) ASSESSMENT CATEGORY: BIRADS Category 1: Negative. A letter regarding these results will be sent to the patient by the facility within 30 days. Approximately 10% of breast cancers are not detected by mammography. A normal mammogram should not delay biopsy of a clinically suspicious abnormality. [id number] Electronically Signed: Jovon Freitas, at 14:58 EDT , Service support ,
== END ==
PROVIDERS: PCP Family Medicine; Referring Provider Family Medicine; Visit Provider Family Medicine
DX: Z12.31 Encounter for screening mammogram for malignant neoplasm of breast (principal)
CPT/HCPCS: 77063; 77067

== ENCOUNTER → 2020-10-26 11:37 | Outpatient (CLI) | payer MEDICARE, MEDICAID, SELFPAY ==
[2020-10-26 10:09] VITALS: BMI 21.9
[2020-10-26 13:09] LABS: Cholesterol 228 mg/dL (200); High Density Lipoprotein 47 mg/dL; Triglycerides 207 mg/dL; Very Low Density Lipoprotein 41 mg/dL (5-40)
== END ==
PROVIDERS: PCP Family Medicine; Visit Provider Physician Assistant Medical
DX: I25.10 Atherosclerotic heart disease of native coronary artery without angina pectoris (principal)
CPT/HCPCS: 36415; 80061

== ENCOUNTER → 2020-11-02 | Outpatient (CLI) | payer MEDICARE, MEDICAID, SELFPAY ==
[2020-10-26 10:09] VITALS: BMI 21.9
== END | disposition home or self-care (01) ==
PROVIDERS: PCP Family Medicine; Referring Provider Family Medicine; Visit Provider Family Medicine
DX: R09.89 Other specified symptoms and signs involving the circulatory and respiratory systems (principal)
CPT/HCPCS: 87635; U0003

== ENCOUNTER 2021-02-09 15:12 | Emergency (ER) | payer MEDICARE, MEDICAID, SELFPAY ==
[2020-10-26 10:09] VITALS: BMI 21.9
[2021-02-09 15:13] VITALS: BP 183/89; PULSE 52; RESP 12; TEMP 36.7; O2SAT 98; BMI 21.6
[2021-02-09] MEDS: fentaNYL 100 MCG/2 ML Ampul 50 MCG IM (15:34)
[2021-02-09] MEDS: Bupivacaine Mpf 0.5% 30 ML VIAL INFILT (15:34)
[2021-02-09] MEDS: Ondansetron ODT 4 MG Tablet PO (15:34)
[2021-02-09 15:40] VITALS: BP 168/85; PULSE 48; RESP 14; O2SAT 98
--- NOTE | 2021-02-09 15:50 | RAD_ITS ---
INDICATION: Injury/Pain EXAMINATION/TECHNIQUE: X-RAY - RIGHT HAND XR Fingers 3 Views COMPARISON: None. FINDINGS: Acute non-displaced fracture of the distal tuft of the 1st distal phalanx. No blastic or lytic lesions. No degenerative changes are seen. Soft tissue swelling of the 1st digit. RAD/Finger(s) Min 2 Views IMPRESSION: Acute non-displaced fracture of the distal tuft of the 1st distal phalanx. Electronically Signed: Diego Ley MD at 16:30 EDT Tel , Service support ,
[2021-02-09 16:22] VITALS: BP 149/80; PULSE 49; RESP 16; O2SAT 96
--- NOTE | 2021-02-09 16:46 | ED.DCSUM_ITS ---
- ER Visit Summary Date of Service: 02/09/21 Chief Complaint: Laceration History of Present Illness: The patient is a [address] Daron Benton. She is right-hand dominant. Her tetanus is not up-to-date. She reports that is particularly emerged part when she shot her right thumb in the truck door. She is a throbbing pain is 10 of 10 severity. Is worsened by movement relieved by rest. She denies any paresthesias. Review of systems: General: No fever, chills, cold sweats. Cardiovascular: No chest pain, palpitations. Respiratory: No cough, shortness of breath, dyspnea on exertion. Gastrointestinal: No abdominal pain, nausea, vomiting, diarrhea, melena, or hematochezia. Genitourinary: No dysuria, frequency, hematuria. Skin: No rash. Neuro: No headache, numbness, weakness. Physical Examination: Vitals: Stable. Afebrile. General: Well-nourished and well-developed. Head: Normocephalic atraumatic. Neck: Supple, no lymphadenopathy. No JVD. Nontender. Cardiovascular: Regular rate and rhythm. No murmurs. Respiratory: No respiratory distress. Clear to auscultation bilaterally. Abdominal: Soft, nontender, nondistended, normal bowel sounds. No guarding, rebound, or peritoneal signs. Back: Nontender. Extremities: Me back of the proximal third of her right thumbnail there is a laceration that extends through the nail and on the lateral side of her thumb. She is neuro vas intact distal this. There is no active bleeding.. Skin: Normal color, no rash. Neurologic: Alert and oriented ?3. Cranial nerves II through XII are intact. Normal strength and sensation. Psych: Normal affect. Test Results: Clinical Impression(s) from Imaging Studies Finger X-Ray 02/09/21 15:50 IMPRESSION: Acute non-displaced fracture of the distal tuft of the 1st distal phalanx. Electronically Signed: Diego Ley MD at 16:30 EDT Tel , Service support , Emergency Department Course and Treatment: Patient was given fentanyl IM, Zofran p.o., and Adacel IM. She had her wound anesthetized and repaired. She tolerated this well. She was given a dose of Keflex p.o. as well. Treatment Plan: Patient will be discharged with Percocet, senna, and Keflex. Instructed to follow-up with Dr. Daron Benton in 10 to 14 days for suture removal. Return to the emergency department for any signs of infection. Disposition: To home in improved and stable condition. Impression: 1. Laceration right thumb, 3 cm, repaired. 2. Tuft fracture right thumb. Procedure note: Wound was cleansed with chlorhexidine soap. Anesthetized with 1 a digital block with 5 cc of bupivacaine. Copiously irrigated with normal saline. Wound was explored there is no foreign material present. The nail was left in place to act as a anatomic splint. It was closed with 3 simple interrupted 4-0 ethilon sutures. The patient tolerated it well. This note was generated with [employer] dictation software. It may contain incorrect words, spelling, and punctuation that were not noted in review of the chart prior to signing ED Disposition - Plan for ED Patient: Instructions: ED Laceration, Hand: All Closures Prescriptions: Cephalexin [Keflex] 500 mg PO Q6 #28 capsule Oxycodone HCl/Acetaminophen [Percocet 5/325] 1 tablet PO Q6H PRN PRN 3 Days #12 tablet PRN Reason: Pain Sennosides [Senna] 8.6 mg PO QHS #10 tablet Referrals: Daron Benton MD [Primary Care Provider] - 10-14 Days suture removal
[2021-02-09] MEDS: Diphth,Pertuss(Acell),Tet Vac 0.5 ML Vial IM (17:03)
[2021-02-09 17:14] VITALS: BP 155/82; PULSE 46; RESP 17; O2SAT 96
== END 2021-02-09 17:31 | disposition home or self-care (01) ==
PROVIDERS: Emergency Provider Emergency Medicine; PCP Family Medicine
DX: S62.524A Nondisplaced fracture of distal phalanx of right thumb, initial encounter for closed fracture (principal); S61.111A Laceration without foreign body of right thumb with damage to nail, initial encounter; W23.0XXA Caught, crushed, jammed, or pinched between moving objects, initial encounter; Y93.9 Activity, unspecified; Y92.9 Unspecified place or not applicable; Y99.9 Unspecified external cause status; Z23 Encounter for immunization; I10 Essential (primary) hypertension; Z72.0 Tobacco use; Z79.899 Other long term (current) drug therapy
CPT/HCPCS: 12002; 73140; 90715; 96372; 99283

== ENCOUNTER → 2021-03-22 14:12 | Outpatient (CLI) | payer MEDICARE, MEDICAID, SELFPAY ==
[2021-03-22 17:46] LABS: Absolute Lymphocyte Count 1.54 X10^3/uL (0.83-4.51); Absolute Neutrophil Count 4.9 X10^3/uL (2.0-7.7); Basophil# 0.05 X10^3/uL; Basophil% 0.7 % (0-1); Eosinophil# 0.11 X10^3/uL; Eosinophils% 1.5 % (0-5); Hemoglobin 15.9 g/dL (12.0-15.0); Lymphocyte # 1.54 X10^3/ul (0.83-4.51); Lymphocyte % 21.2 % (19-41); Mean Corp Hgb Conc 31.8 g/dL (32-36); Mean Corpuscular Hgb 28.6 pg (27.0-32.0); Mean Corpuscular Volume 89.9 fL (81-99); Mean Platelet Vol. 10.9 fl (6.2-12.0); Monocyte# 0.66 X10^3/uL; Monocyte% 9.1 % (0-10); NRBC Flagged by Analyzer 0 % (0-5); Neutrophil # 4.87 X10^3/uL (2.7-7.7); Neutrophil % 67.2 % (47-70); Platelet Count 167 K/mm3 (150-450); RBC Distribution Width SD 46.4 fl (35.1-43.9); Red Blood Count 5.56 M/mm3 (4.2-5.4); White Blood Count 7.3 K/mm3 (4.4-11.0)
[2021-03-22 17:58] LABS: Vitamin D,25 Hydroxy 51.5 ng/mL
[2021-03-22 18:14] LABS: ALB/GLOB Ratio 1.1 RATIO (0.9-2.4); AST(SGOT) 15 U/L (15-37); Alanine Aminotransfer ALT/SGPT 25 U/L (13-56); Albumin, Serum 3.9 g/dL (3.2-5.0); Alkaline Phosphatase 124 U/L (45-117); Anion Gap 5 (5-15); BUN 19 mg/dL (7-18); BUN/Creat Ratio 19.6 RATIO (10-20); Chloride 104 mmol/L (98-107); Creatinine, Serum 0.97 mg/dL (0.55-1.02); EST Glomerular Filtration Rate 61 mL/min (>60); Est Glom Filt Rate - Afr Amer 74 mL/min (>60); Globulin 3.7 g/dL (2.2-4.2); Glucose 96 mg/dL (74-106); Protein, Total 7.6 g/dL (6.4-8.2); Sodium Level 138 mmol/L (136-145); T4 Free Direct 1.15 ng/dL (0.76-1.46); Thyroid Stim Hormone (TSH) 1.15 uIU/mL (0.358-3.74)
== END ==
PROVIDERS: PCP Family Medicine; Referring Provider Family Medicine; Visit Provider Family Medicine
DX: K75.81 Nonalcoholic steatohepatitis (NASH) (principal); L40.50 Arthropathic psoriasis, unspecified; E03.9 Hypothyroidism, unspecified; E55.9 Vitamin D deficiency, unspecified
CPT/HCPCS: 36415; 80053; 82306; 84439; 84443; 85025

== ENCOUNTER → 2021-04-15 13:49 | Outpatient (CLI) | payer MEDICARE, MEDICAID, SELFPAY ==
[2021-04-08 13:40] VITALS: BMI 21.6
[2021-04-15 11:49] VITALS: BMI 21.6
--- NOTE | 2021-04-15 13:50 | MRI_ITS ---
HISTORY: Pain. Technique coronal T1, sagittal T1-T2 and STIR, axial T1 and T2-weighted images were obtained through the lumbar spine. 153 images comparison x-rays are available from April 08, 2021 Findings: Levoscoliosis remains. Vertebral body height and disc height are normal. Disc signal and marrow signal are normal. The conus medullaris is at the L1 level. Facets are adequately aligned. At multiple levels there is facet arthropathy and ligamentous thickening. No significant disc disease is present at any level. The spinal canal and neural foramina remain patent. Some tortuosity of the abdominal aorta. MRI/Spine Lumbar (Routine) IMPRESSION: Gentle levoscoliosis within the lumbar spine, but without significant spinal canal or neural foraminal stenosis at 0707 Reported and signed by: Chas Jauregui MD Electronically Signed: Chas Jauregui MD at 7:06 EDT Tel , Service support ,
== END ==
PROVIDERS: PCP Family Medicine; Referring Provider Orthopaedic Surgery; Visit Provider Orthopaedic Surgery
DX: M54.5 Low back pain (principal)
CPT/HCPCS: 72148

== ENCOUNTER → 2021-06-06 12:49 | Outpatient (CLI) | payer MEDICARE, MEDICAID, SELFPAY ==
[2021-04-22 13:51] VITALS: BMI 21.6
--- NOTE | 2021-06-06 12:54 | CDU_ITS ---
Reason For Study: Carotid bruit Rt. Velocities/BP Lt. Velocities/BP LT CCA Inflow, 231.4/24.6 cm/sec. Prox CCA 241.5/27.6 cm/sec. Prox Anas, 365/12.1 cm/sec. Mid CCA 253.5/35.3 cm/sec. Prox graft, 260.5/11.4 cm/sec. Dist CCA 110.3/22.3 cm/sec. Mid graft, 262.6/14.6 cm/sec Prox ICA 150.5/18.9 cm/sec. Dist graft, 157.5/11.2 cm/sec Mid ICA 141.8/29.8 cm/sec. Dist Anas, 390.6/18.4 cm/sec. Dist ICA 115.4/25.5 cm/sec. Prox CCA 146.8 cm/sec. Lt. ICA/CCA = 0.62. Mid CCA 151.2 cm/sec. Prox ECA 88.8/6.6 cm/sec. Dist CCA 111.7 cm/sec. Lt. Vert. 58.4/14.2 cm/sec. Prox ICA 405.3/12.9 cm/sec. Mid ICA 128/18.1 cm/sec. Dist ICA 137.7/27.8 cm/sec. Prox ECA 312.2/18 cm/sec. Rt. Vert. 28/8.1 cm/sec. Right Extracranial There is heterogeneous, irregular atherosclerotic plaque noted in the right common carotid artery. Retrograde flow noted in the right CCA. There is heterogeneous, irregular atherosclerotic plaque noted in the right internal carotid artery. There is heterogeneous, irregular atherosclerotic plaque noted in the right external carotid artery. Abnormal waveform noted in the right vertebral artery. Left Extracranial There is homogeneous, smooth atherosclerotic plaque noted in the left common carotid artery. There is heterogeneous, irregular atherosclerotic plaque noted in the left internal carotid artery. The atherosclerotic plaque causes acoustic shadowing. There is heterogeneous, irregular atherosclerotic plaque noted in the left external carotid artery. Antegrade flow is noted in the left vertebral artery. Procedure Carotid Duplex [id number]. This is a Carotid Duplex examination using B-mode, color flow and specral Doppler. Exam performed in department. VL/Carotid Duplex Ultrasound Interpretation Summary Carotid carotid bypass graft with elevated velocities at both anastomosis. Righ t internal carotid with severe stenosis greater than 70%. Left internal carotid 50 to 69% stenosis . Abnormal right vertebral artery with antegrade left vertebral artery. Ordering Physician: Kristopher Main Referring Physician: Daron Benton MD Performed By: Tena Davidson RVT
== END ==
PROVIDERS: PCP Family Medicine; Referring Provider Psychiatry & Neurology Neurology; Visit Provider Psychiatry & Neurology Neurology
DX: R09.89 Other specified symptoms and signs involving the circulatory and respiratory systems (principal)
CPT/HCPCS: 93880

== ENCOUNTER → 2021-06-07 16:48 | Outpatient (CLI) | payer MEDICARE, MEDICAID, SELFPAY ==
[2021-04-22 13:51] VITALS: BMI 21.6
--- NOTE | 2021-06-07 16:48 | MRI_ITS ---
STUDY: MRI CERVICAL SPINE WITHOUT CONTRAST REASON FOR EXAM: Female, 65 years old. chronic leg weakness, MS, gait instability. no arms symptoms. Neck and upper back pain TECHNIQUE: Standardized fat and water weighted pulse sequences were obtained in the sagittal and axial planes. COMPARISON: None FINDINGS: Normal foramen magnum and brainstem-cervical cord junction. Normal craniovertebral junction. Normal anterior atlantoaxial articulation. Normal odontoid process. Normal cervical lordosis. Normal vertebral bodies and posterior osseous elements. C2-3: Normal endplates. Normal disc height, signal and morphology. Normal central canal and intervertebral neural foramina. C3-4: Normal endplates. Normal disc height, signal and morphology. Normal central canal and intervertebral neural foramina. C4-5: Normal endplates. Normal disc height, signal and morphology. Normal central canal and intervertebral neural foramina. C5-6: No change in the mild bilobed disc osteophyte complex and bilateral uncovertebral hypertrophy produces mild spinal stenosis and moderate bilateral neural foraminal stenosis. C6-7: No change in the mild bilobed disc osteophyte complex and left uncovertebral hypertrophy produces mild spinal stenosis but moderate left neural foraminal stenosis. C7-T1: Normal endplates. Normal disc height, signal and morphology. Normal central canal and intervertebral neural foramina. Normal cervical cord. Normal visualized soft tissue structures. MRI/Spine Cervical (Routine) IMPRESSION: No change from 10/05/2011. Electronically Signed: Elijah Pollack MD at 13:12 EDT Tel , Service support ,
== END ==
PROVIDERS: PCP Family Medicine; Referring Provider Family Medicine; Visit Provider Family Medicine
DX: R26.81 Unsteadiness on feet (principal); R26.9 Unspecified abnormalities of gait and mobility; G35 Multiple sclerosis
CPT/HCPCS: 72141

== ENCOUNTER → 2021-07-21 08:48 | Outpatient (CLI) | payer MEDICARE, MEDICAID, SELFPAY ==
[2021-07-18 10:54] LABS: BUN 19 mg/dL (7-18); Creatinine, Serum 0.79 mg/dL (0.55-1.02); EST Glomerular Filtration Rate 77 mL/min (>60); Est Glom Filt Rate - Afr Amer 94 mL/min (>60)
--- NOTE | 2021-07-21 08:50 | RDU_ITS ---
Reason For Study: Renal stenosis Right Renal Artery Left Renal Artery Right renal artery ostium Left renal artery ostium 396.4/70.4 227.1/36.7 RSV/EDV. PSV/EDV. Right renal artery proximal Left renal artery proximal PSV/EDV 246.8/31 PSV/EDV. 495.3/133 . Right renal artery mid 90.6/17.4 Left renal artery mid 513.5/135.2 PSV/EDV. PSV/EDV . Right renal artery distal 76.9/19.2 Left renal artery distal 202.5/37.5 PSV/EDV. PSV/EDV. Right RAR 4.51. Left RAR 9.39. Right Renal Parenchyma Left Renal Parenchyma Upper Pole Medula 29.1/9 PSV/EDV. Left upper pole medulla 27.6/7.3 Right upper pole medulla EDR 0.31 . PSV/EDV . Right upper pole medulla R.I. Left upper pole medulla EDR 0.27 . 0.69 . Left upper pole medulla R.I. 0.73 . Upper Robin Cortx 16.5/5.1 PSV/EDV. UP Cortex 19.6/6.1 PSV/EDV. Right upper pole cortex EDR 0.31 . Left upper pole cortex EDR 0.31 . Right upper pole cortex R.I. 0.69 . Left upper pole cortex R.I. 0.69 . Right lower Pole medulla 28.8/6.6 Left lower Pole medulla 30/8.5 PSV/EDV . PSV/EDV . Right lower pole medulla EDR 0.23 . Left lower pole medulla EDR 0.28 . Right lower pole medulla R.I. Left lower pole medulla R.I. 0.72 . 0.77 . Lower Pole Cortx 20.2/6.1 PSV/EDV. Lower Pole Cortex 22.2/6.1 PSV/EDV. Left lower pole cortex EDR 0.30 . Right lower pole cortex EDR 0.28 . Left lower pole cortex R.I. 0.70 . Right lower pole cortex R.I. 0.72 . Left Renal Hilar Right Renal Hilar LT Hilar avg 52.9/14.5 PSV/EDV . Right Hilar avg 42.1/9.6 PSV/EDV. Left hilar acceleration time 30 Right hilar acceleration time 60 m/sec. m/sec. Left Renal Dimensions Right Renal Dimensions Left kidney size 9.83 cm . Right kidney size 9.84 cm . Left cortical dimension 1.45 cm . Right cortical dimension 1.07 cm . Aorta Proximal abdominal aorta 2.48 x 2.46 cm . Proximal abdominal aorta peak systolic velocity is 54.7 cm/sec . Distal abdominal aorta 0.93 x 0.93 cm . Distal abdominal aorta peak systolic velocity is 131.5 cm/sec . VL/Renal Artery Duplex Ultrasound Interpretation Summary Bilateral renal arteries consistent with greater than 60% degree stenosis. Appe ars severe in the left renal artery with significant elevated velocities. Elevated resistive's in dices noted bilaterally. Ordering Physician: Kam Nava Referring Physician: Daron Benton MD Performed By: Tena Davidson RVT
--- NOTE | 2021-07-21 08:51 | AAVD_ITS ---
Reason For Study: Aortoiliac occlusive disease Aorta Measurements Aorta Doppler Measurements Proximal aorta measures2.41 x 2.37cm. in cross- Peak systolic flow velocities within the proximal sectional axis. aorta measure 54.6 cm/sec. Proximal aorta measures2.36cm. in longitudinal Peak systolic flow velocities within the mid aorta axis. measure 52.9 cm/sec. Mid aorta measures1.53 x 1.51cm. in cross- Peak systolic flow velocities within the distal sectional axis. aorta measure 148.4 cm/sec. Mid aorta measures1.5cm. in longitudinal axis. Distal aorta measures0.99 x 0.99cm. in cross- sectional axis. Distal aorta measures0.98cm. in longitudinal axis. Left Iliac Artery Left iliac artery measures 0.60 x 0.59 cm. in the cross-sectional axis. Left iliac artery measures 0.60 cm. in the longitudinal axis. Peak systolic velocity in the left iliac artery measures 102.3 cm/sec. Right Iliac Artery Right iliac artery measures 0.65 x 0.66 cm. in the cross-sectional axis. Right iliac artery measures 0.60 cm. in the longitudinal axis. Peak systolic velocity in the right iliac artery measures 273 cm/sec. VL/Abd Aortic/IVC Duplex scan Interpretation Summary No aneurysm noted. Right common iliac with moderate stenosis. Rest of the aorta and left iliac appear to be patent with no stenosis. Ordering Physician: Kam Nava Referring Physician: Daron Benton MD Performed By: Tena Davidson RVT
--- NOTE | 2021-07-21 08:51 | ART_ITS ---
Reason For Study: Atherosclerosis w/ claudication Procedure A bilateral lower extremity continuous wave Doppler with analog waveform analysis and ankle brachial indexes. Left Segmental Pressures Left brachial= 158mmHg. Left posterior tibial artery = 95mmHg. Left dorsalis pedis artery = 68mmHg. Left digit = 83 mmHg. The left dorsalis pedis waveforms are monophasic. The left posterior tibial artery waveforms are monophasic. Right Segmental Pressures Right brachial= 160mmHg. Right posterior tibial artery = 119mmHg. Right dorsalis pedis artery = 118mmHg. Right digit = 93 mmHg. The right dorsalis pedis waveforms are biphasic. The right posterior tibial artery waveforms are biphasic. Indices The right ankle brachial index by the dorsalis pedis is 0.74. The right ankle brachial index by the posterior tibial artery is 0.74. The right digital-brachial index is 0.58. The left ankle brachial index by the dorsalis pedis is 0.43. The left ankle brachial index by the posterior tibial artery is 0.59. The left digital-brachial index is 0.52. VL/Ankle Brachial Index Interpretation Summary Right lower extremity with biphasic flow and an JAY 0.74. Left lower extremity with monophasic flow and an JAY 0.59. Digit brachial index 0.580.52. Ordering Physician: Kam Nava Referring Physician: Daron Benton MD Performed By: Tena Davidson RVT
== END ==
PROVIDERS: PCP Family Medicine; Referring Provider Surgery Vascular Surgery; Visit Provider Surgery Vascular Surgery
DX: I74.09 Other arterial embolism and thrombosis of abdominal aorta (principal); I70.213 Atherosclerosis of native arteries of extremities with intermittent claudication, bilateral legs; I70.1 Atherosclerosis of renal artery; F17.200 Nicotine dependence, unspecified, uncomplicated
CPT/HCPCS: 36415; 82565; 84520; 93922; 93975; 93978

== ENCOUNTER 2021-09-21 11:44 | Emergency (ER) | payer MEDICARE, MEDICAID, SELFPAY ==
[2021-09-21 11:45] VITALS: BP 145/78; PULSE 66; RESP 16; TEMP 36.3; O2SAT 97; BMI 20.6
--- NOTE | 2021-09-21 12:00 | VDLE_ITS ---
Reason For Study: Left knee pain Procedure LEFT This is a venous duplex using B-mode, color GSV is normal. flow and spectral Doppler. CFV is compressible, spontaneous, phasic, Exam performed portable in ED. competent, and demonstrates normal A preliminary report was called and/or faxed augmentation. to ED. FV is compressible, spontaneous, phasic, competent and demonstrates normal augmentation. POP V is compressible, spontaneous, phasic, competent and demonstrates normal augmentation. T/P Trunk is compressible. PTV is compressible. LT PerV is compressible. VL/Venous Duplex US, Unilateral Interpretation Summary There is no evidence of left lower extremity deep vein thrombosis. Left great s aphenous vein appears patent and compressible segmentally. Ordering Physician: Yasmani Haynes Referring Physician: Daron Benton MD Performed By: Tena Davidson RVT
--- NOTE | 2021-09-21 12:04 | EX.ED.DYSGE1 ---
HPI History of Present Illness Chief Complaint: Lower Extremity Injury Narrative Narrative: Patient is a 66-year-old female past medical history of MS. she states that she typically will walk with a cane or a wheeled walker. She states she has noted some increased pain and irritation to the left knee without any recent trauma or excessive activity. She states today it is more swollen and painful and she has difficulty moving it/walking on it because of this increased pain and therefore comes in for evaluation. [facility] Medical History Angina pectoris Bilateral carotid artery stenosis Chronic pain syndrome Essential (primary) hypertension Fatty liver GERD (gastroesophageal reflux disease) Goiter History of transient ischemic attack (TIA) HLD (hyperlipidemia) Multiple sclerosis Nonobstructive atherosclerosis of coronary artery Nonsustained paroxysmal supraventricular tachycardia Osteoarthritis Osteoporosis Peripheral vascular occlusive disease Psoriasis Psoriatic arthritis Thrombocytopenia Home Medications cholecalciferol (vitamin D3) 5,000 unit PO DAILY 12/16/13 [History Last Taken 07/16/19] gabapentin 800 mg tablet 800 mg PO TID tab 07/16/18 [History Last Taken 07/16/19] metoprolol succinate 25 mg tablet,extended release 24 hr 25 mg PO DAILY #30 tab 10/26/20 [Rx Last Taken Unknown] clopidogrel 75 mg tablet See Rx Instructions .ROUTE .COMPLEX #90 tab 04/25/21 [Rx Last Taken Unknown] Marijuana PO .prn 08/11/21 [History Last Taken Unknown] baclofen 20 mg tablet 20 mg PO Q8H tab 08/11/21 [History Last Taken Unknown] fluticasone propionate 50 mcg/actuation nasal spray,suspension 2 spray INTRANASAL DAILY PRN g 08/11/21 [History Last Taken Unknown] levothyroxine 50 mcg tablet 50 mcg PO DAILY tab 08/11/21 [History Last Taken Unknown] magnesium oxide 400 mg (241.3 mg magnesium) tablet 400 mg PO DAILY PRN 08/11/21 [History Last Taken Unknown] oxycodone 10 mg tablet 10 mg PO BID tab 08/11/21 [History Last Taken Unknown] oxycodone-acetaminophen [Endocet] 1 tab PO Q6H PRN 3 Days #12 tab 09/21/21 [Rx Last Taken Unknown] Allergy/AdvReac Type Severity Reaction Status Date / Time colestipol [From Colestid] Allergy Mild unknown Verified 09/21/21 11:47 pregabalin [From Lyrica] Allergy Mild Hives Verified 09/21/21 11:47 amitriptyline Allergy Rash Verified 09/21/21 11:47 temazepam [From Restoril] AdvReac Mild Nausea/Vom/ Verified 09/21/21 11:47 Diarrhea Antihistamines - Alkylamine AdvReac Nausea/Vom/ Verified 09/21/21 11:47 Diarrhea Antihistamines - Ethanolamine AdvReac Nausea/Vom/ Verified 09/21/21 11:47 Diarrhea Antihistamines - AdvReac Nausea/Vom/ Verified 09/21/21 11:47 Ethylenediamine Diarrhea Antihistamines - Piperazine AdvReac Nausea/Vom/ Verified 09/21/21 11:47 Diarrhea Antihistamines - Piperidine AdvReac Nausea/Vom/ Verified 09/21/21 11:47 Diarrhea aspirin AdvReac I'M ON Verified 09/21/21 11:47 BLOOD THINNERS codeine AdvReac Nausea Verified 09/21/21 11:47 morphine AdvReac Nausea Verified 09/21/21 11:47 Scbrqmy-Cmv-Hci Reductase AdvReac Nausea Verified 09/21/21 11:47 Inhibitor STEROIDS BY MOUTH AdvReac Upset Uncoded 09/21/21 11:47 Stomach Family History Mother Cancer CAD (coronary artery disease) Brain tumor Grandfather CVA (cerebral vascular accident) Father CAD (coronary artery disease) Ruptured abdominal aortic aneurysm (AAA) Sister Brain aneurysm Surgical History Brain aneurysm Fracture of right lower leg H/O hemorrhoidectomy H/O: History of angioplasty of peripheral vessel History of angioplasty of peripheral vessel (07/11/19) History of section History of hemorrhoidectomy History of hysterectomy History of left breast biopsy History of left heart catheterization (01/25/15) History of left-sided carotid endarterectomy History of partial thyroidectomy (11/30/05) History of right-sided carotid endarterectomy S/P coil embolization of cerebral aneurysm S/P hysterectomy S/P insertion of iliac artery stent S/P thyroidectomy Stenosis of left subclavian artery Social History Smoking Status: Current every day smoker tobacco type: cigarettes alcohol intake: never caffeine: Yes Type: coffee and tea ROS ROS ED Constitutional Constitutional ED: Denies chills or fever(s) Cardiovascular Cardiovascular: Denies chest pain Respiratory/Chest Respiratory/Chest: Denies cough or dyspnea Gastrointestinal Gastrointestinal: Denies abdominal pain, diarrhea, nausea or vomiting Genitourinary Genitourinary ED: Denies dysuria Musculoskeletal Musculoskeletal: Reports other Details: Positive left knee pain ; Denies myalgias Integumentary Denies Abrasions or rash Neurologic Neurologic: Denies headache(s) Hematologic/Lymphatic Hematologic/Lymphatic: Denies easy bleeding or easy bruising EXAM Physical Exam Const Vital Signs: 09/21/21 11:45 Temperature 97.4 F L Temperature Source Temporal Pulse Rate 66 Respiratory Rate 16 Blood Pressure 145/78 H Blood Pressure Mean 100 Pulse Ox 97 Oxygen Delivery Method Room Air Positive well nourished and well developed General Appearance ED: well developed Eyes PERRL and EOMs intact bilaterally Neck supple Resp normal respiratory effort and clear to auscultation bilaterally Cardio regular rate and regular rhythm Extremity Extremity Narrative: Left lower extremity is neurovascularly intact. Patient has a small joint effusion to the anterior aspect of the left knee noted. There is faint warmth with this but no overlying erythema. Active range of motion is decreased secondary to pain. There is diffuse pain on palpation noted also. There is slight asymmetric swelling of the left calf compared to the right with pain with palpation of the left calf as well. Neuro oriented x3 and CN's II-XII intact bilaterally Sensorium / Orientation: alert Psych mental status grossly normal Skin no rashes or lesions noted MDM MDM MDM Narrative Medical decision making narrative: Patient presented to ER with slowly increasing left knee pain and swelling without report of acute injury. Exam is consistent with a joint effusion but there is no overlying erythema or fever to suggest this is a septic joint and patient does have active range of motion although it is decreased secondary to pain. A venous duplex was obtained which reveals no acute DVT and the x-ray reveals the small joint effusion consistent with her exam. At this time as she is afebrile and can still bend the knee and bear weight I do not feel that we need to do further laboratory studies for possible septic joint. Patient can be treated symptomatically and follow-up with orthopedics on an outpatient basis to discuss need for a joint aspiration or further testing. Radiography Diagnostic Testing: Clinical Impression(s) from Imaging Studies Knee X-Ray 09/21/21 12:15 IMPRESSION: Left knee acutely intact Soft tissue swelling with small volume joint effusion Valentine-Stieda lesion (MCL calcification) Electronically Signed: Daron Armstrong DO at 12:50 EDT Tel , Service support , Discharge Plan Triage Chief Complaint: Lower Extremity Injury ED Provider: Yasmani Haynes Dx/Rx/DC Orders Clinical Impression: Effusion of knee joint, left Instructions: ED Knee Effusion Prescriptions: New oxycodone-acetaminophen [Endocet] 5-325 mg tablet 1 tab PO Q6H PRN (Reason: pain) 3 Days Qty: 12 RF: 0 No Action gabapentin 800 mg tablet 800 mg PO TID RF: 0 Marijuana PO .prn RF: 0 metoprolol succinate 25 mg tablet extended release 24 hr 25 mg PO DAILY Qty: 30 RF: 11 baclofen 20 mg tablet 20 mg PO Q8H RF: 0 levothyroxine 50 mcg tablet 50 mcg PO DAILY RF: 0 oxycodone 10 mg tablet 10 mg PO BID RF: 0 fluticasone propionate 50 mcg/actuation spray,suspension 2 spray intranasal DAILY PRNRF: 0 cholecalciferol (vitamin D3) 5,000 UNIT tablet 5,000 unit PO DAILY RF: 0 magnesium oxide 400 mg (241.3 mg magnesium) tablet 400 mg PO DAILY PRN (Reason: supplement) RF: 0 clopidogrel 75 mg tablet See Rx Instructions .ROUTE .COMPLEX Qty: 90 RF: 3 Primary Care Provider: Daron Benton Referrals: Daron Benton MD [Primary Care Provider] - Miko Mayo MD [STAFF PHYSICIAN] - 3-5 Days if not improving (Left knee effusion) Disposition Disposition: Home, Self Care
[2021-09-21] MEDS: Ondansetron ODT 4 MG Tablet PO (12:05)
[2021-09-21] MEDS: Morphine 4 MG/ML Syringe 6 MG IM (12:06)
--- NOTE | 2021-09-21 12:15 | RAD_ITS ---
STUDY: X-RAY - LEFT KNEE REASON FOR EXAM: Female, 66 years old. Pain. TECHNIQUE: 4 view(s) of the knee. COMPARISON: None. FINDINGS: No acute fracture, dislocation or osseous destruction. Calcification at the medial collateral ligament proximal origin. Soft tissue swelling. Small volume joint effusion. RAD/Knee 4 or More Views IMPRESSION: Left knee acutely intact Soft tissue swelling with small volume joint effusion Valentine-Stieda lesion (MCL calcification) Electronically Signed: Daron Armstrong DO at 12:50 EDT Tel , Service support ,
== END 2021-09-21 13:29 | disposition home or self-care (01) ==
LOC: ED 13:07
PROVIDERS: Emergency Provider Emergency Medicine; PCP Family Medicine
DX: M25.462 Effusion, left knee (principal); M79.89 Other specified soft tissue disorders; M25.562 Pain in left knee; G89.4 Chronic pain syndrome; G35 Multiple sclerosis; I25.119 Atherosclerotic heart disease of native coronary artery with unspecified angina pectoris; I47.1 Supraventricular tachycardia; L40.50 Arthropathic psoriasis, unspecified; E04.9 Nontoxic goiter, unspecified; I10 Essential (primary) hypertension; E78.5 Hyperlipidemia, unspecified; K21.9 Gastro-esophageal reflux disease without esophagitis; F17.210 Nicotine dependence, cigarettes, uncomplicated; Z79.02 Long term (current) use of antithrombotics/antiplatelets; Z79.890 Hormone replacement therapy; Z79.899 Other long term (current) drug therapy; Z86.73 Personal history of transient ischemic attack (TIA), and cerebral infarction without residual deficits
CPT/HCPCS: 73564; 93971; 96372; 99283

== ENCOUNTER → 2021-09-29 14:11 | Outpatient (CLI) | payer MEDICARE, MEDICAID, SELFPAY ==
[2021-09-29 15:50] LABS: BUN 14 mg/dL (7-18); Creatinine, Serum 0.83 mg/dL (0.55-1.02); EST Glomerular Filtration Rate 73 mL/min (>60); Est Glom Filt Rate - Afr Amer 89 mL/min (>60)
== END ==
PROVIDERS: PCP Family Medicine; Visit Provider Surgery Vascular Surgery
DX: I77.1 Stricture of artery (principal); I65.23 Occlusion and stenosis of bilateral carotid arteries; F17.200 Nicotine dependence, unspecified, uncomplicated; Z48.812 Encounter for surgical aftercare following surgery on the circulatory system
CPT/HCPCS: 36415; 82565; 84520

== ENCOUNTER → 2021-10-03 15:43 | Outpatient (CLI) | payer MEDICARE, MEDICAID, SELFPAY ==
--- NOTE | 2021-10-03 15:45 | CT_ITS ---
EXAM: CT ANGIOGRAPHY NECK WITHOUT AND WITH INTRAVENOUS CONTRAST CLINICAL INDICATION: CAROTID ARTERY STENOSIS Technologist Notes RT SIDED STENOSIS BYPASS X 9 YEARS TECHNIQUE: Routine carotid CT angiography protocol was performed without and with intravenous contrast. Nascet criteria using the distal ICAs for comparison were used for evaluation of stenoses. This CT exam was performed using one or more of the following dose reduction techniques: automated exposure control, adjustment of the mA and/or kV according to patient size, and/or use of iterative reconstruction technique. This report was created using [employer] report generation technology. MIP reconstructed images were created and reviewed. CONTRAST: IV 100mL Isovue-370 COMPARISON: None. FINDINGS: VASCULATURE: RIGHT COMMON CAROTID ARTERY: See below. RIGHT INTERNAL CAROTID ARTERY: There is mild atherosclerotic plaque formation of the origin of the right internal carotid artery with less than 50% cross sectional diameter stenosis. There is mild atherosclerotic plaque formation of the origin of the left internal carotid artery with less than 50% cross sectional diameter stenosis. No dissection. RIGHT EXTERNAL CAROTID ARTERY: Unremarkable. No occlusion. RIGHT VERTEBRAL ARTERY: Unremarkable. No occlusion or significant stenosis. No dissection. LEFT COMMON CAROTID ARTERY: See below. LEFT INTERNAL CAROTID ARTERY: There is mild atherosclerotic plaque formation of the origin of the right and left internal carotid artery with less than 50% cross sectional diameter stenosis. Occluded origin of the right CCA. There is a bypass graft from the left CCA to the right distal CCA which is patent. ALL ABOVE CRITERIA BY NASCET. LEFT EXTERNAL CAROTID ARTERY: Unremarkable. No occlusion. LEFT VERTEBRAL ARTERY: Unremarkable. No occlusion or significant stenosis. No dissection. GREAT VESSELS OF AORTIC ARCH: There is atherosclerotic calcific plaque formation of the aortic arch and great vessels arising from the aortic arch, without a hemodynamically significant stenosis. There is a normal origin of the brachiocephalic, left common carotid, and left subclavian arteries. NECK: BONES/JOINTS: Unremarkable. SOFT TISSUES: Unremarkable. LUNG APICES: Clear. CAROTID STENOSIS REFERENCE USING NASCET CRITERIA: % ICA stenosis = (1 - narrowest ICA diameter/diameter of distal cervical ICA) x 100. Mild - <50% stenosis. Moderate - 50-69% stenosis. Severe - 70-94% stenosis. Near occlusion - 95-99% stenosis. Occluded - 100% stenosis. CT/CTA Neck W/WO Contrast IMPRESSION: There is mild atherosclerotic plaque formation of the origin of the right and left internal carotid artery with less than 50% cross sectional diameter stenosis. Occluded origin of the right CCA. There is a bypass graft from the left CCA to the right distal CCA which is patent. ALL ABOVE CRITERIA BY NASCET. Electronically Signed: Rafael Daniel MD at 17:01 EST , Service support ,
== END ==
PROVIDERS: PCP Family Medicine; Referring Provider Surgery Vascular Surgery; Visit Provider Surgery Vascular Surgery
DX: I65.23 Occlusion and stenosis of bilateral carotid arteries (principal); I77.1 Stricture of artery; I74.09 Other arterial embolism and thrombosis of abdominal aorta; I70.1 Atherosclerosis of renal artery; I70.213 Atherosclerosis of native arteries of extremities with intermittent claudication, bilateral legs; I25.10 Atherosclerotic heart disease of native coronary artery without angina pectoris; G35 Multiple sclerosis; E07.9 Disorder of thyroid, unspecified; Z86.73 Personal history of transient ischemic attack (TIA), and cerebral infarction without residual deficits; F17.200 Nicotine dependence, unspecified, uncomplicated
CPT/HCPCS: 70498; Q9967

== ENCOUNTER → 2021-10-12 13:34 | Outpatient (CLI) | payer MEDICARE, MEDICAID, SELFPAY ==
--- NOTE | 2021-10-12 13:34 | MRI_ITS ---
STUDY: MRI LEFT KNEE REASON FOR EXAM: Female, 66 years old. anterior knee pain/ swelling TECHNIQUE: Standardized fat and water weighted pulse sequences were obtained in all 3 orthogonal planes. COMPARISON: None. FINDINGS: Normal medial meniscus. There is diffuse, greater than 50% thickness articular cartilage loss of the medial femorotibial compartment. There is a 2.4 mm region of full-thickness loss of cartilage in the inner aspect of the medial femoral condyle Normal medial femoral condyle and tibial plateau. Normal medial collateral ligamentous complex (MCL). Normal distal semimembranosus, gracilis and semitendinosus tendons. Normal lateral meniscus. There is diffuse, less than 50% thickness articular cartilage loss of the lateral femorotibial compartment. Normal lateral femoral condyle and tibial plateau. Normal proximal tibiofibular articulation. Normal lateral collateral (fibular) ligament. Normal popliteus tendon. Normal biceps femoris tendon. Normal anterior cruciate ligament (ACL). Normal posterior cruciate ligament (PCL). Normal congruent patellofemoral articulation. There is signal heterogeneity within the articular cartilage of the patellofemoral compartment without significant thinning and with an intact articular cartilage surface. Mild subchondral reactive signal is present in the lateral patellar facet. Normal medial and lateral patellar retinaculum. Normal quadriceps tendon. Normal patellar tendon. Normal Hoffa''s fat pad. A moderate size joint effusion is present. The soft tissues are unremarkable. The otherwise visualized osseous structures are unremarkable. MRI/Lower Ext Joint Only (Routine) IMPRESSION: 1. Mild signal abnormality and subchondral cystic changes in the lateral patellar facet and overlying cartilage 2. 2.4 mm region of full-thickness loss of cartilage in the inner aspect of the medial femoral condyle 3. Moderate size joint effusion Electronically Signed: Jake Washburn MD at 21:27 EST , Service support ,
== END ==
PROVIDERS: PCP Family Medicine; Visit Provider Orthopaedic Surgery
DX: M25.562 Pain in left knee (principal); M25.462 Effusion, left knee
CPT/HCPCS: 73721

== ENCOUNTER → 2021-11-17 14:40 | Outpatient (CLI) | payer MEDICARE, MEDICAID, SELFPAY ==
--- NOTE | 2021-11-17 14:43 | CT_ITS ---
STUDY: CTA OF THE ABDOMINAL AORTA AND BILATERAL LOWER EXTREMITIES REASON FOR EXAM: Female, 66 years old. ATHEROSCLEROSIS RADIATION DOSAGE (If Supplied By Facility): CTDIvol = ( 8.48 ) mGy, DLP = ( 948.63 ) mGycm TECHNIQUE: Axial CT angiography multi-detector data acquisition was obtained from the lung bases to the toe following intravenous administration of IV 100mL Isovue-370. Axial images and MIP images were reconstructed from the axial data set. Post-processing of the angiographic images was performed, with multiplanar reformation and 3D reconstruction. Individualized dose optimization techniques were used for this CT. TECHNICAL QUALITY: Good COMPARISON: None. Descriptors of Narrowing: None (0%) Mild (< 50%) Moderate (50-70%) Severe (70-90%) Subtotal/Total Occlusion (90-100%) Non-Evaluable (technically non-diagnostic FINDINGS: Abdominal aorta: Moderate amount of irregular calcified and noncalcified plaque within the abdominal aorta with a 60% stenosis in the infrarenal abdominal aorta proximal to the inferior mesenteric artery origin. Celiac and superior mesenteric arteries: The celiac axis is widely patent. Occluded proximal superior mesenteric artery with reconstitution after 2 cm. Inferior mesenteric artery: No demonstrated narrowing. Right renal artery(arteries): There is mild diffuse narrowing. Left renal artery(arteries): There is mild diffuse narrowing. Right common iliac artery: There is moderate diffuse narrowing. Right external iliac artery: There is mild diffuse narrowing. Right internal iliac artery: There is mild diffuse narrowing. Left common iliac artery: There is moderate diffuse narrowing. Left external iliac artery: There is mild diffuse narrowing. Left internal iliac artery: There is mild diffuse narrowing. RIGHT LOWER EXTREMITY Right common femoral artery: There is moderate diffuse narrowing. Right profundus femoris: No demonstrated narrowing. Right superficial femoral: Mildly diseased with a focal moderate (70%) stenosis at the adductor canal. Right popliteal artery: No demonstrated narrowing. Right tibioperoneal trunk: No demonstrated narrowing. Right anterior tibial artery: No demonstrated narrowing. Right posterior tibial artery: No demonstrated narrowing. Right peroneal artery: No demonstrated narrowing. LEFT LOWER EXTREMITY Left common femoral artery: There is moderate diffuse narrowing. Left profundus femoris: Moderately diseased with a 4 cm occlusion at the adductor canal Left superficial femoral: No demonstrated narrowing. Left popliteal artery: No demonstrated narrowing. Left tibioperoneal trunk: No demonstrated narrowing. Left anterior tibial artery: No demonstrated narrowing. Left posterior tibial artery: No demonstrated narrowing. Left peroneal artery: No demonstrated narrowing. CT/CTA Abd w/Runoff W/WO Contrast IMPRESSION: 1. Moderate amount of irregular calcified and noncalcified plaque within the abdominal aorta with a 60% stenosis of the infrarenal abdominal aorta proximal to the inferior mesenteric origin. 2. Occluded proximal superior mesenteric artery with reconstitution. Widely patent celiac axis and inferior mesenteric artery. 3. Mild bilateral renal artery stenosis. 4. Moderately diseased common iliac arteries with mildly diseased external and internal iliac arteries. Moderately diseased common femoral arteries bilaterally. 5. Mildly diseased right superficial femoral artery with a focal moderate (70%) stenosis at the adductor canal. Widely patent popliteal artery and with three-vessel runoff. 6. Moderately diseased left superficial femoral artery with a 4 cm occlusion at the adductor canal. Widely patent popliteal artery with three-vessel runoff. Electronically Signed: Elijah Pollack MD at 15:21 EST Tel , Service support ,
[2021-11-17 15:05] LABS: CREATININE FINGERSTICK 0.8 mg/dL (0.55-1.02); EGFR FINGERSTICK > 60.0000 mL/min (>60)
== END ==
PROVIDERS: PCP Family Medicine; Visit Provider Surgery Vascular Surgery
DX: I70.213 Atherosclerosis of native arteries of extremities with intermittent claudication, bilateral legs (principal); I77.1 Stricture of artery; E78.5 Hyperlipidemia, unspecified; I10 Essential (primary) hypertension; G45.9 Transient cerebral ischemic attack, unspecified; I25.10 Atherosclerotic heart disease of native coronary artery without angina pectoris; M51.36 Other intervertebral disc degeneration, lumbar region; I74.09 Other arterial embolism and thrombosis of abdominal aorta; I65.23 Occlusion and stenosis of bilateral carotid arteries; I70.1 Atherosclerosis of renal artery; G35 Multiple sclerosis; I63.9 Cerebral infarction, unspecified; E07.9 Disorder of thyroid, unspecified
CPT/HCPCS: 75635; Q9967

== ENCOUNTER 2022-01-18 06:46 | Day surgery (SDC) | payer MEDICARE, MEDICAID, SELFPAY ==
[2022-01-17 08:23] VITALS: BMI 20.7
[2022-01-18 07:05] LABS: Hematocrit 50.2 % (37-47); Hemoglobin 16.9 g/dL (12.0-15.0); Mean Corp Hgb Conc 33.7 g/dL (32-36); Mean Corpuscular Hgb 30.5 pg (27.0-32.0); Mean Corpuscular Volume 90.5 fL (81-99); Mean Platelet Vol. 9.7 fl (6.2-12.0); Platelet Count 233 K/mm3 (150-450); RBC Distribution Width CV 13.8 % (11.6-14.6); RBC Distribution Width SD 46.6 fl (35.1-43.9); Red Blood Count 5.55 M/mm3 (4.2-5.4); White Blood Count 7.7 K/mm3 (4.4-11.0)
[2022-01-18 07:19] LABS: Albumin, Serum 3.6 g/dL (3.2-5.0); BUN 18 mg/dL (7-18); BUN/Creat Ratio 18.6 RATIO (10-20); Calcium,Total 9.2 mg/dL (8.5-10.1); Chloride 106 mmol/L (98-107); Creatinine, Serum 0.97 mg/dL (0.55-1.02); EST Glomerular Filtration Rate 61 mL/min (>60); Est Glom Filt Rate - Afr Amer 74 mL/min (>60); Estimated Creatinine Clearance 50.37 ml/min; Glucose 92 mg/dL (74-106); Phosphorus 4.4 mg/dL (2.5-4.9); Potassium 3.9 mmol/L (3.5-5.1); Sodium Level 141 mmol/L (136-145)
--- NOTE | 2022-01-18 08:52 | OP.PCM_ITS ---
Problems Associated Problem List Diagnoses (1) Peripheral vascular occlusive disease: Report of Operation Date of Procedure: 01/18/22 Pre-Operative Diagnosis: Bilateral lower extremity PAD Post-Operative Diagnosis: Same Surgery/Procedure Performed:: 1. Ultrasound-guided access retrograde right common femoral artery. 2. Aortogram with selective left lower extremity angiogram with catheter placed past the third order into the popliteal artery. 3. Balloon angioplasty the entire femoral through the mid popliteal artery with Bard drug-coated balloon 4 mm x 3 different inflations with the same balloon. 4. Balloon angioplasty of the left common iliac artery with a 7 Bard drug- coated balloon. 5. Balloon angioplasty of the right iliac artery and the left external iliac artery with a 6 drug-coated balloon. 6. Closure with Mynx Surgeon: Kam Nava Type of Anesthesia: IV Sedation Description of Procedure: Patient brought to the [employer]. Underwent appropriate timeout consent. Underwent sedation. Was prepped and draped in a sterile fashion. We did ultrasound-guided access retrograde in the right common femoral artery. Put a Glidewire up and then a 5 Guinean sheath. Gave 5000 units of heparin. We did an aortogram. This showed some stenosis proximal and distal to the right common iliac stent. Moderate to severe stenosis in the distal left common iliac artery and proximal left external iliac artery. We then got up and over the bifurcation and imaged from the femoral artery. This showed the common femoral artery and profunda widely patent. The femoral artery was patent but was very diminutive and appear to be occluded at the adductor. We imaged further down and there was collateral filling to the mid popliteal artery. Appeared to be mostly three-vessel runoff below that. We brought in a longer 6 Guinean sheath. Using a quick cross and Glidewire got through the occlusion confirm we are in the popliteal artery. We replaced the balloon and then balloon from the mid popliteal up with a 4 x 150 drug-coated balloon for over 2- 1/2 minutes. We used the same balloon and balloon the rest of the femoral artery for 2 different inflations. Each for about a minute and 1/2 to 2 minutes. Completion did show some dissection but nonflow limiting. Overall was improved flow all the way down through here. Vessels were too small to stent. We will follow this closely. We pulled the sheath back and an oblique views image the left side and balloon from the common iliac to the external iliac on the left with a 7 drug-coated balloon. We did this for over 2 minutes. We then brought in a 6 x 150 and ballooned it from the left external neck artery through the common iliac and down through the right common iliac for over 2 minutes. We pulled the balloon back and balloon the rest of the right common iliac into the external iliac with that same 6 mm balloon. That was for over a minute and a half. Completion was much improved with better flow through both sides. We then removed this sheath put a shorter sheath deployed a minx with good hemostasis. Patient then brought to recovery stable condition. Sedation: This 66-year-old female underwent moderate sedation given by Dr. Kam Nava. She has moderate EKG blood pressure and pulse ox for over the 30 minutes of the procedure. See the EMR for the complete record.
== END 2022-01-18 23:59 | disposition home or self-care (01) ==
LOC: CLSP 06:49
PROVIDERS: PCP Family Medicine; Referring Provider Surgery Vascular Surgery; Visit Provider Surgery Vascular Surgery
DX: I73.9 Peripheral vascular disease, unspecified (principal); I10 Essential (primary) hypertension; I25.10 Atherosclerotic heart disease of native coronary artery without angina pectoris; E07.9 Disorder of thyroid, unspecified; M51.36 Other intervertebral disc degeneration, lumbar region; F17.210 Nicotine dependence, cigarettes, uncomplicated; Z86.73 Personal history of transient ischemic attack (TIA), and cerebral infarction without residual deficits; Z79.899 Other long term (current) drug therapy; Z79.01 Long term (current) use of anticoagulants
CPT/HCPCS: 36245; 36246; 36415; 37220; 37222; 37224; 75716; 76937; 80069; 85027; 99152; 99153; C1760; C2623; J7040; Q9967; C1725; C1769; C1887; C1894

== ENCOUNTER 2022-01-23 10:54 | Emergency (ER) | payer MEDICARE, MEDICAID, SELFPAY ==
[2022-01-23 10:55] VITALS: BP 194/105; PULSE 54; RESP 16; TEMP 36.3; O2SAT 96; BMI 21.0
--- NOTE | 2022-01-23 11:22 | VDLE_ITS ---
Reason For Study: pain Procedure LEFT This is a venous duplex using B-mode, color GSV is normal. flow and spectral Doppler. CFV is compressible, spontaneous, phasic, Exam performed portable in ED. competent, and demonstrates normal The exam was abbreviated due to the COVID 19 augmentation. protocol. FV is compressible, spontaneous, phasic, The exam was diagnostic. competent and demonstrates normal A preliminary report was called and/or faxed augmentation. to Dr. Simpson. POP V is compressible, spontaneous, phasic, competent and demonstrates normal augmentation. T/P Trunk is compressible. PTV is compressible. LT PerV is compressible. SFA prox 147.2 cm/s POP A 116 cm/s PROGRESSIVE CARE NURSE ankle 59.5 cm/s Peroneal A ankle 35.7 cm/s AMADO ankle 77.6 cm/s. VL/Venous Duplex US, Unilateral Interpretation Summary Abbreviated scan of the left leg shows no evidence of DVT. Appears to have adeq uate flow through the left lower extremity with no significant stenosis in this abbreviated test. Ordering Physician: Gabriella Simpson Performed By: Von Rodriguez RVT
[2022-01-23] MEDS: oxyCODONE 5 MG Tablet 10 MG PO (11:36)
--- NOTE | 2022-01-23 12:05 | RAD_ITS ---
STUDY: X-RAY - LEFT KNEE REASON FOR EXAM: Female, 66 years old. Knee injury -- sunrise view TECHNIQUE: 4 view(s) of the knee. COMPARISON: Comparison is made with prior study dated 10/18/2021. FINDINGS: Normal visualized distal femur. Normal visualized proximal tibia and fibula. Normal proximal tibiofibular articulation. Normal medial femorotibial compartment. Normal lateral femorotibial compartment. Normal patellofemoral articulation. Small joint effusion. Focal calcification of the medial collateral ligament in keeping with JH Stieda RAD/Knee 4 or More Views IMPRESSION: Small joint effusion. Electronically Signed: Jovon Freitas MD at 12:37 EST ,
--- NOTE | 2022-01-23 12:22 | EDS_ITS ---
HPI History of Present Illness Chief Complaint: Lower Extremity Injury Informant: patient Narrative Narrative: Patient is a 66-year-old female presenting with left groin pain as well as left knee pain. Patient had aortogram in the left lower extremity and balloon angioplasty of right iliac and left external iliac artery, left common iliac artery and entire fiber through the mid popliteal artery on 01/18/2022. They went in through the right femoral artery. She notes since that she is been very sore in her left thigh and is worried she could have a blood clot or something more with her leg. Denies any new numbness or tingling. Denies any coldness in her legs. In addition patient had a dream last night that caused her to jump out of bed and then she landed and hit her left kneecap. She came in for further evaluation of both of these pain complaints. Patient is on chronic 10 mg oxycodone for pain twice a day and did not have her morning pain medication. No new numbness or tingling. No weakness of the legs. No other complaints at this time. [facility] Medical History Angina pectoris Bilateral carotid artery stenosis Chronic pain syndrome Essential (primary) hypertension Fatty liver GERD (gastroesophageal reflux disease) Goiter History of transient ischemic attack (TIA) HLD (hyperlipidemia) Multiple sclerosis Nonobstructive atherosclerosis of coronary artery Nonsustained paroxysmal supraventricular tachycardia Osteoarthritis Osteoporosis Peripheral vascular occlusive disease Psoriasis Psoriatic arthritis Thrombocytopenia Home Medications cholecalciferol (vitamin D3) 5,000 unit PO DAILY 12/16/13 [History Last Taken 07/16/19] gabapentin 800 mg tablet 800 mg PO TID tab 07/16/18 [History Last Taken 07/16/19] clopidogrel 75 mg tablet See Rx Instructions .ROUTE .COMPLEX #90 tab 04/25/21 [Rx Last Taken 01/17/22] Marijuana PO .prn 08/11/21 [History Last Taken Unknown] baclofen 20 mg tablet 20 mg PO Q8H tab 08/11/21 [History Last Taken 01/18/22] fluticasone propionate 50 mcg/actuation nasal spray,suspension 2 spray INTRANASAL DAILY PRN g 08/11/21 [History Last Taken Unknown] levothyroxine 50 mcg tablet 50 mcg PO DAILY tab 08/11/21 [History Last Taken 01/18/22] magnesium oxide 400 mg (241.3 mg magnesium) tablet 400 mg PO DAILY PRN 08/11/21 [History Last Taken Unknown] oxycodone 10 mg tablet 10 mg PO BID tab 08/11/21 [History Last Taken 01/18/22] oxycodone-acetaminophen [Endocet] 1 tab PO Q6H PRN 3 Days #12 tab 09/21/21 [Rx Last Taken Unknown] metoprolol succinate 25 mg tablet,extended release 24 hr 25 mg PO DAILY #90 tab 10/17/21 [Rx Last Taken Unknown] Allergy/AdvReac Type Severity Reaction Status Date / Time colestipol [From Colestid] Allergy Mild unknown Verified 01/23/22 10:57 pregabalin [From Lyrica] Allergy Mild Hives Verified 01/23/22 10:57 amitriptyline Allergy Rash Verified 01/23/22 10:57 temazepam [From Restoril] AdvReac Mild Nausea/Vom/ Verified 01/23/22 10:57 Diarrhea Antihistamines - Alkylamine AdvReac Nausea/Vom/ Verified 01/23/22 10:57 Diarrhea Antihistamines - Ethanolamine AdvReac Nausea/Vom/ Verified 01/23/22 10:57 Diarrhea Antihistamines - AdvReac Nausea/Vom/ Verified 01/23/22 10:57 Ethylenediamine Diarrhea Antihistamines - Piperazine AdvReac Nausea/Vom/ Verified 01/23/22 10:57 Diarrhea Antihistamines - Piperidine AdvReac Nausea/Vom/ Verified 01/23/22 10:57 Diarrhea aspirin AdvReac I'M ON Verified 01/23/22 10:57 BLOOD THINNERS codeine AdvReac Nausea Verified 01/23/22 10:57 morphine AdvReac Nausea Verified 01/23/22 10:57 [id number] Reductase AdvReac Nausea Verified 01/23/22 10:57 Inhibitor [Yxurrqq-Tvz-Auj Reductase Inhibitor] STEROIDS BY MOUTH AdvReac Upset Uncoded 01/23/22 10:57 Stomach Family History Mother Cancer CAD (coronary artery disease) Brain tumor Grandfather CVA (cerebral vascular accident) Father CAD (coronary artery disease) Ruptured abdominal aortic aneurysm (AAA) Sister Brain aneurysm Surgical History Brain aneurysm Fracture of right lower leg H/O hemorrhoidectomy H/O: History of angioplasty of peripheral vessel History of angioplasty of peripheral vessel (07/11/19) History of section History of hemorrhoidectomy History of hysterectomy History of left breast biopsy History of left heart catheterization (01/25/15) History of left-sided carotid endarterectomy History of partial thyroidectomy (11/30/05) History of right-sided carotid endarterectomy S/P coil embolization of cerebral aneurysm S/P hysterectomy S/P insertion of iliac artery stent S/P thyroidectomy Stenosis of left subclavian artery Social History Smoking Status: Current every day smoker tobacco type: cigarettes alcohol intake: never caffeine: Yes Type: coffee and tea ROS ROS ED Constitutional Constitutional ED: Denies chills or fever(s) Eyes Eyes: Denies change in vision Cardiovascular Cardiovascular: Denies chest pain Respiratory/Chest Respiratory/Chest: Denies cough or dyspnea Gastrointestinal Gastrointestinal: Denies abdominal pain, nausea or vomiting Genitourinary Genitourinary ED: Denies dysuria or hematuria Musculoskeletal Musculoskeletal: Reports other Details: left groin pain . Left knee pain. Chronic back pain ; Denies arthralgias or myalgias Integumentary Denies abscess or rash Neurologic Neurologic: Denies headache(s), paresthesias or weakness Psychiatric Psychiatric: Denies anxiety or depression EXAM Physical Exam Const Vital Signs: 01/23/22 10:55 Temperature 97.3 F L Temperature Source Temporal Pulse Rate 54 L Respiratory Rate 16 Blood Pressure 194/105 H Blood Pressure Mean 134 Pulse Ox 96 Oxygen Delivery Method Room Air Positive well nourished and well developed General Appearance ED: well developed HEENT normocephalic and atraumatic Eyes PERRL Neck full ROM and supple Chest Wall inspection of chest normal Resp normal respiratory effort and clear to auscultation bilaterally Cardio regular rate, regular rhythm and no murmurs Cardio Narrative: left: 2+ DP pulse on , 1+ PT pulse GI non-tender and non-distended Palpation: soft Extremity normal to inspection and full ROM Extremity Narrative: Mild tenderness palpation diffusely of the left knee with decreased range of motion associated with it. Subtle joint effusion appreciated. Patient has a normal-appearing patella and is able to flex her leg straight off the bed. Decreased range of motion secondary to pain. Left groin?there is no pulsatile mass or swelling appreciated. Mild diffuse tenderness palpation of the proximal femur/groin area. Neuro oriented x3, moves all extremities and no sensory deficits noted Sensorium / Orientation: alert Motor Exam: strength 5/5 throughout Psych mental status grossly normal Skin Skin Narrative: Ecchymosis that is healing on the right groin consistent with recent angiography as well as ecchymosis to the right forearm from recent IV access. No surrounding cellulitic changes. Rashes: no rashes MDM MDM MDM Narrative Medical decision making narrative: Patient evaluated for left groin as well as left upper leg pain since having vascular surgery last week as well as left knee pain since falling out of bed this morning. Patient is neurovascularly intact. She has good distal pulses. No obvious mass or hematoma appreciated. Venous duplex ultrasound with some arterial images obtained which does not show any DVT or pseudoaneurysm. Case is discussed with the patient's vascular surgeon, Dr. Nava, who recommends ice and did not recommend any further intervention at this time. Given that she has good distal pulses I think this is reasonable. X-ray of the knee shows a small effusion. Patient is offered an Jean-Claude wrap but states she has him at home. No signs of a patella fracture on imaging or quadricep/patellar tendon rupture on physical exam. Radiography X-Ray: Read by ED Physician, Read by Radiologist and - (Right knee x-ray-small joint effusion, no acute fracture) Diagnostic Testing: Clinical Impression(s) from Imaging Studies Knee X-Ray 01/23/22 12:05 IMPRESSION: Small joint effusion. Electronically Signed: Jovon Freitas MD at 12:37 EST , Discharge Plan Triage Chief Complaint: Lower Extremity Injury ED Provider: Gabriella Simpson Dx/Rx/DC Orders Clinical Impression: Acute postoperative pain of left groin, Effusion of knee joint, left, Contracture, left knee Instructions: ED Knee Effusion Prescriptions: No Action gabapentin 800 mg tablet 800 mg PO TID RF: 0 Marijuana PO .prn RF: 0 baclofen 20 mg tablet 20 mg PO Q8H RF: 0 levothyroxine 50 mcg tablet 50 mcg PO DAILY RF: 0 oxycodone 10 mg tablet 10 mg PO BID RF: 0 fluticasone propionate 50 mcg/actuation spray,suspension 2 spray intranasal DAILY PRN (Reason: Allergy Symptoms) RF: 0 cholecalciferol (vitamin D3) 5,000 UNIT tablet 5,000 unit PO DAILY RF: 0 magnesium oxide 400 mg (241.3 mg magnesium) tablet 400 mg PO DAILY PRN (Reason: supplement) RF: 0 oxycodone-acetaminophen [Endocet] 5-325 mg tablet 1 tab PO Q6H PRN (Reason: pain) 3 Days Qty: 12 RF: 0 clopidogrel 75 mg tablet See Rx Instructions .ROUTE .COMPLEX Qty: 90 RF: 3 metoprolol succinate 25 mg tablet extended release 24 hr 25 mg PO DAILY Qty: 90 RF: 3 Primary Care Provider: Daron Benton Referrals: Daron Benton MD [Primary Care Provider] - Activity Restrictions/Additional Instructions: Please follow-up with Dr. Nava as scheduled. There is no blood clot on the ultrasound today. I use an Jean-Claude wrap and ice to your knee as well as ice to your groin to help with the pain. You should follow-up with your orthopedist or primary care provider for your knee. Disposition Disposition: Home, Self Care Discharge Date/Time: 01/23/22 13:10
== END 2022-01-23 13:10 | disposition home or self-care (01) ==
PROVIDERS: Emergency Provider Emergency Medicine; PCP Family Medicine; Visit Provider Emergency Medicine
DX: R10.32 Left lower quadrant pain (principal); G89.18 Other acute postprocedural pain; M25.462 Effusion, left knee; M24.562 Contracture, left knee; M79.605 Pain in left leg; G35 Multiple sclerosis; I47.1 Supraventricular tachycardia; I25.10 Atherosclerotic heart disease of native coronary artery without angina pectoris; I10 Essential (primary) hypertension; G89.4 Chronic pain syndrome; E89.0 Postprocedural hypothyroidism; E78.5 Hyperlipidemia, unspecified; K21.9 Gastro-esophageal reflux disease without esophagitis; F17.210 Nicotine dependence, cigarettes, uncomplicated; Z79.02 Long term (current) use of antithrombotics/antiplatelets; Z79.890 Hormone replacement therapy; Z79.899 Other long term (current) drug therapy; Z86.73 Personal history of transient ischemic attack (TIA), and cerebral infarction without residual deficits; Z95.820 Peripheral vascular angioplasty status with implants and grafts
CPT/HCPCS: 73564; 93971; 99283

== ENCOUNTER 2022-02-14 15:46 | Emergency (ER) | payer MEDICARE, MEDICAID, SELFPAY ==
[2022-02-14 15:46] VITALS: BP 209/85; PULSE 52; RESP 18; TEMP 36.8; O2SAT 98; BMI 22.0
--- NOTE | 2022-02-14 16:38 | ED.VIS.BACK ---
HPI History of Present Illness Chief Complaint: Back Onset/Context/Timing Onset: Yesterday Context: Gradual Onset Timing: Continuous Quality: Burning Location: Lumbar, Buttock and Left Leg Worsened by: improves with - (Sitting) Relieved by: Nothing Associated Symptoms Associated Symptoms: Radiation to Left Leg; Negative for Numbness, Tingling, Radiation to Right Leg, Fever, Abdominal Pain, Dysuria, Urinary Retention, Urinary Incontinence, Constipation and Fecal Incontinence Narrative Narrative: Patient presents with back pain that began last night. Patient states it became worse today. Patient states it is constant. Patient describes it as burning. Patient states it is over her lower lumbar area and radiates down into her buttocks and left leg. Patient states it is worse with sitting. Patient states she took her normal oxycodone which it did not help. Patient states she took an extra baclofen which did not help. Patient denies any bowel or bladder changes. Patient denies any saddle anesthesia. Patient denies any dysuria or hematuria. Patient denies any abdominal pain. [facility] Medical History Angina pectoris Bilateral carotid artery stenosis Chronic pain syndrome Essential (primary) hypertension Fatty liver GERD (gastroesophageal reflux disease) Goiter History of transient ischemic attack (TIA) HLD (hyperlipidemia) Multiple sclerosis Nonobstructive atherosclerosis of coronary artery Nonsustained paroxysmal supraventricular tachycardia Osteoarthritis Osteoporosis Peripheral vascular occlusive disease Psoriasis Psoriatic arthritis Thrombocytopenia Home Medications cholecalciferol (vitamin D3) 5,000 unit PO DAILY 12/16/13 [History Last Taken 07/16/19] gabapentin 800 mg tablet 800 mg PO TID tab 07/16/18 [History Last Taken 07/16/19] Marijuana PO .prn 08/11/21 [History Last Taken Unknown] baclofen 20 mg tablet 20 mg PO Q8H tab 08/11/21 [History Last Taken 01/18/22] fluticasone propionate 50 mcg/actuation nasal spray,suspension 2 spray INTRANASAL DAILY PRN g 08/11/21 [History Last Taken Unknown] levothyroxine 50 mcg tablet 50 mcg PO DAILY tab 08/11/21 [History Last Taken 01/18/22] oxycodone 10 mg tablet 10 mg PO BID tab 08/11/21 [History Last Taken 01/18/22] metoprolol succinate 25 mg tablet,extended release 24 hr 25 mg PO DAILY #90 tab 10/17/21 [Rx Last Taken Unknown] clopidogrel 75 mg PO QODAY 02/14/22 [History Last Taken Unknown] Allergy/AdvReac Type Severity Reaction Status Date / Time colestipol [From Colestid] Allergy Mild unknown Verified 02/14/22 15:50 pregabalin [From Lyrica] Allergy Mild Hives Verified 02/14/22 15:50 amitriptyline Allergy Rash Verified 02/14/22 15:50 temazepam [From Restoril] AdvReac Mild Nausea/Vom/ Verified 02/14/22 15:50 Diarrhea Antihistamines - Alkylamine AdvReac Nausea/Vom/ Verified 02/14/22 15:50 Diarrhea Antihistamines - Ethanolamine AdvReac Nausea/Vom/ Verified 02/14/22 15:50 Diarrhea Antihistamines - AdvReac Nausea/Vom/ Verified 02/14/22 15:50 Ethylenediamine Diarrhea Antihistamines - Piperazine AdvReac Nausea/Vom/ Verified 02/14/22 15:50 Diarrhea Antihistamines - Piperidine AdvReac Nausea/Vom/ Verified 02/14/22 15:50 Diarrhea aspirin AdvReac I'M ON Verified 02/14/22 15:50 BLOOD THINNERS codeine AdvReac Nausea Verified 02/14/22 15:50 morphine AdvReac Nausea Verified 02/14/22 15:50 [id number] Reductase AdvReac Nausea Verified 02/14/22 15:50 Inhibitor [Ysgnpjv-Pjc-Thw Reductase Inhibitor] STEROIDS BY MOUTH AdvReac Upset Uncoded 02/14/22 15:50 Stomach Family History Mother Cancer CAD (coronary artery disease) Brain tumor Grandfather CVA (cerebral vascular accident) Father CAD (coronary artery disease) Ruptured abdominal aortic aneurysm (AAA) Sister Brain aneurysm Surgical History Brain aneurysm Fracture of right lower leg H/O hemorrhoidectomy H/O: History of angioplasty of peripheral vessel History of angioplasty of peripheral vessel (07/11/19) History of section History of hemorrhoidectomy History of hysterectomy History of left breast biopsy History of left heart catheterization (01/25/15) History of left-sided carotid endarterectomy History of partial thyroidectomy (11/30/05) History of right-sided carotid endarterectomy S/P coil embolization of cerebral aneurysm S/P hysterectomy S/P insertion of iliac artery stent S/P thyroidectomy Stenosis of left subclavian artery Social History Smoking Status: Current every day smoker tobacco type: cigarettes alcohol intake: never caffeine: Yes Type: coffee and tea ROS ROS ED Constitutional Constitutional ED: Denies chills or fever(s) Eyes Eyes: Denies blurry vision or change in vision ENT ENT ED: Denies rhinorrhea or sore throat Cardiovascular Cardiovascular: Denies chest pain or palpitations Respiratory/Chest Respiratory/Chest: Denies cough or dyspnea Gastrointestinal Gastrointestinal: Denies nausea or vomiting Genitourinary Genitourinary ED: Denies dysuria or hematuria Musculoskeletal Musculoskeletal: Reports back pain; Denies neck pain Integumentary Denies abscess or rash Neurologic Neurologic: Denies headache(s) or weakness Allergic/Immunologic Allergic/Immunologic ED: Denies mouth swelling or urticaria EXAM Physical Exam Const Vital Signs: 02/14/22 15:46 02/14/22 18:12 02/14/22 19:54 Temperature 98.2 F Temperature Source Oral Pulse Rate 52 L 53 L 50 L Respiratory Rate 18 17 16 Blood Pressure 209/85 H 182/92 H 160/81 H Blood Pressure Mean 126 122 107 Pulse Ox 98 97 98 Oxygen Delivery Method Room Air Room Air Room Air 02/14/22 22:00 Temperature Temperature Source Pulse Rate 58 L Respiratory Rate 16 Blood Pressure 158/77 H Blood Pressure Mean 104 Pulse Ox 97 Oxygen Delivery Method Room Air Positive well nourished and well developed General Appearance ED: well developed and NAD HEENT Reports moist mucous membranes Neck supple General: Negative for tenderness GI soft to palpation and non-tender Back/Spine Back/Spine Narrative: There is tenderness over the lower lumbar spine paraspinal muscles. There is no bony crepitance or step-off. There is tenderness over the sciatic notch. There is tenderness along the sciatic nerve distribution. Neuro oriented x3 and no sensory deficits noted Sensorium / Orientation: alert Motor Exam: strength 5/5 throughout Psych mental status grossly normal Skin no rashes or lesions noted MDM MDM MDM Narrative Medical decision making narrative: Patient was given a dose of Dilaudid here. Patient had minimal improvement with this. Because of this, x-rays of the pelvis were obtained. There is 1 view. On my interpretation, there is no acute process noted. There is no acute fracture. There is no osteopenia. Radiologist also interpreted the x-ray and agrees. Patient was given a dose of fentanyl. Patient states her pain started to improve after this. Patient was unsure if she would be able to ambulate. Because of this, patient was given a repeat dose of Dilaudid and a dose of baclofen. Patient was able to ambulate without difficulty after this. Patient was instructed to continue her medications as previously prescribed. Patient was instructed to follow-up with her primary care physician in 3 to 5 days. Patient understood and was agreeable with the plan. All questions were answered. Radiography Diagnostic Testing: Clinical Impression(s) from Imaging Studies Pelvis X-Ray 02/14/22 18:41 IMPRESSION: No acute findings. Electronically Signed: Rafael Daniel MD at 19:35 EDT Reading Location ID and State: [facility] / [place] , Service support , Discharge Plan Triage Chief Complaint: Back Other Complaint: Lower Extremity Injury ED Provider: Daron Estevez Dx/Rx/DC Orders Clinical Impression: Sciatica of left side, Multiple sclerosis, Chronic pain Instructions: ED Sciatica Prescriptions: No Action gabapentin 800 mg tablet 800 mg PO TID RF: 0 Marijuana PO .prn RF: 0 baclofen 20 mg tablet 20 mg PO Q8H RF: 0 levothyroxine 50 mcg tablet 50 mcg PO DAILY RF: 0 oxycodone 10 mg tablet 10 mg PO BID RF: 0 fluticasone propionate 50 mcg/actuation spray,suspension 2 spray intranasal DAILY PRN (Reason: Allergy Symptoms) RF: 0 cholecalciferol (vitamin D3) 5,000 UNIT tablet 5,000 unit PO DAILY RF: 0 clopidogrel 75 mg tablet 75 mg PO QODAY RF: 0 metoprolol succinate 25 mg tablet extended release 24 hr 25 mg PO DAILY Qty: 90 RF: 3 Primary Care Provider: Daron Benton Referrals: Daron Benton MD [Primary Care Provider] - 3-5 Days Disposition Disposition: Home, Self Care
[2022-02-14] MEDS: HYDROmorphone 0.5 MG/0.5 ML SYRINGE IM ×2 (16:49→19:52)
[2022-02-14] MEDS: Ondansetron ODT 4 MG Tablet PO (16:50)
--- NOTE | 2022-02-14 17:25 | ED.RN ---
PT STATES THE PAIN MEDICATION HAS NOT BEEN EFFECTIVE. DR BOGGS. WILL OBSERVE AT THIS TIME
[2022-02-14 18:12] VITALS: BP 182/92; PULSE 53; RESP 17; O2SAT 97
[2022-02-14] MEDS: fentaNYL 100 MCG/2 ML Ampul 50 MCG IM (18:32)
--- NOTE | 2022-02-14 18:41 | RAD_ITS ---
STUDY: XR Pelvis 1 or 2 Views 02/14/2022 6:47 PM REASON FOR EXAM: Female, 66 years old. PAIN Post-Op Total Hip Replacement TECHNIQUE: XR Pelvis 1 or 2 Views COMPARISON: None FINDINGS: There is a non-specific bowel gas pattern. Right common iliac stent There is less. There are degenerative changes of the lumbar spine. Normal bilateral iliac wings, sacroiliac joints and visualized sacrum. Normal visualized bilateral superior and inferior pubic rami. Normal pubic symphysis. Normal ischial tuberosities. Normal visualized right femoral head. Normal right acetabulum. Normal right hip joint. Normal visualized left femoral head. Normal left acetabulum. Normal left hip joint. RAD/Pelvis 1 or 2 Views IMPRESSION: No acute findings. Electronically Signed: Rafael Daniel MD at 19:35 EDT ,
[2022-02-14 19:54] VITALS: BP 160/81; PULSE 50; RESP 16; O2SAT 98
[2022-02-14 22:00] VITALS: BP 158/77; PULSE 58; RESP 16; O2SAT 97
[2022-02-14] MEDS: Baclofen 10 MG Tablet PO (22:13)
[2022-02-14 23:00] VITALS: BP 159/78; PULSE 78; RESP 16; O2SAT 97
== END 2022-02-14 23:18 | disposition home or self-care (01) ==
PROVIDERS: Emergency Provider Emergency Medicine; PCP Family Medicine; Visit Provider Emergency Medicine
DX: M54.42 Lumbago with sciatica, left side (principal); G35 Multiple sclerosis; I47.1 Supraventricular tachycardia; E78.5 Hyperlipidemia, unspecified; I25.10 Atherosclerotic heart disease of native coronary artery without angina pectoris; I10 Essential (primary) hypertension; G89.4 Chronic pain syndrome; K21.9 Gastro-esophageal reflux disease without esophagitis; E04.9 Nontoxic goiter, unspecified; Z79.890 Hormone replacement therapy; Z79.02 Long term (current) use of antithrombotics/antiplatelets; Z79.899 Other long term (current) drug therapy; Z86.73 Personal history of transient ischemic attack (TIA), and cerebral infarction without residual deficits
CPT/HCPCS: 72170; 96372; 99284

== ENCOUNTER 2022-02-17 21:33 | Emergency (ER) | payer MEDICARE, MEDICAID, SELFPAY ==
[2022-02-17 21:33] VITALS: BP 198/94; PULSE 56; RESP 16; TEMP 36.7; O2SAT 99; BMI 20.6
--- NOTE | 2022-02-17 22:00 | EDS_ITS ---
HPI History of Present Illness Chief Complaint: Eye Problem Narrative Narrative: Patient with past medical history of multiple sclerosis, chronic pain, and has had changes in vision secondary to her MS presents with acute eye pain. She states she awoke this evening and had trouble opening her eyes. She tried to flush her right eye with Visine but it casillas on the lower portion of her eye. She denies any new loss of vision, and denies any trauma. She is not working outside today, and denies foreign body sensation. She has pain in her right eye, and burning and is having difficulty opening her eye secondary to the pain because of photophobia. [facility] Medical History Angina pectoris Bilateral carotid artery stenosis Chronic pain syndrome Essential (primary) hypertension Fatty liver GERD (gastroesophageal reflux disease) Goiter History of transient ischemic attack (TIA) HLD (hyperlipidemia) Multiple sclerosis Nonobstructive atherosclerosis of coronary artery Nonsustained paroxysmal supraventricular tachycardia Osteoarthritis Osteoporosis Peripheral vascular occlusive disease Psoriasis Psoriatic arthritis Thrombocytopenia Home Medications cholecalciferol (vitamin D3) 5,000 unit PO DAILY 12/16/13 [History Last Taken 07/16/19] gabapentin 800 mg tablet 800 mg PO TID tab 07/16/18 [History Last Taken 07/16/19] Marijuana PO .prn 08/11/21 [History Last Taken Unknown] baclofen 20 mg tablet 20 mg PO Q8H tab 08/11/21 [History Last Taken 01/18/22] fluticasone propionate 50 mcg/actuation nasal spray,suspension 2 spray INTRANASAL DAILY PRN g 08/11/21 [History Last Taken Unknown] levothyroxine 50 mcg tablet 50 mcg PO DAILY tab 08/11/21 [History Last Taken 01/18/22] oxycodone 10 mg tablet 10 mg PO BID tab 08/11/21 [History Last Taken 01/18/22] metoprolol succinate 25 mg tablet,extended release 24 hr 25 mg PO DAILY #90 tab 10/17/21 [Rx Last Taken Unknown] clopidogrel 75 mg PO QODAY 02/14/22 [History Last Taken Unknown] Allergy/AdvReac Type Severity Reaction Status Date / Time colestipol [From Colestid] Allergy Mild unknown Verified 02/14/22 15:50 pregabalin [From Lyrica] Allergy Mild Hives Verified 02/14/22 15:50 amitriptyline Allergy Rash Verified 02/14/22 15:50 temazepam [From Restoril] AdvReac Mild Nausea/Vom/ Verified 02/14/22 15:50 Diarrhea Antihistamines - Alkylamine AdvReac Nausea/Vom/ Verified 02/14/22 15:50 Diarrhea Antihistamines - Ethanolamine AdvReac Nausea/Vom/ Verified 02/14/22 15:50 Diarrhea Antihistamines - AdvReac Nausea/Vom/ Verified 02/14/22 15:50 Ethylenediamine Diarrhea Antihistamines - Piperazine AdvReac Nausea/Vom/ Verified 02/14/22 15:50 Diarrhea Antihistamines - Piperidine AdvReac Nausea/Vom/ Verified 02/14/22 15:50 Diarrhea aspirin AdvReac I'M ON Verified 02/14/22 15:50 BLOOD THINNERS codeine AdvReac Nausea Verified 02/14/22 15:50 morphine AdvReac Nausea Verified 02/14/22 15:50 Vzswutt-JLP-UfI Reductase AdvReac Nausea Verified 02/14/22 15:50 Inhibitor [Vboaovl-Dau-Kcj Reductase Inhibitor] STEROIDS BY MOUTH AdvReac Upset Uncoded 02/14/22 15:50 Stomach Family History Mother Cancer CAD (coronary artery disease) Brain tumor Grandfather CVA (cerebral vascular accident) Father CAD (coronary artery disease) Ruptured abdominal aortic aneurysm (AAA) Sister Brain aneurysm Surgical History Brain aneurysm Fracture of right lower leg H/O hemorrhoidectomy H/O: History of angioplasty of peripheral vessel History of angioplasty of peripheral vessel (07/11/19) History of section History of hemorrhoidectomy History of hysterectomy History of left breast biopsy History of left heart catheterization (01/25/15) History of left-sided carotid endarterectomy History of partial thyroidectomy (11/30/05) History of right-sided carotid endarterectomy S/P coil embolization of cerebral aneurysm S/P hysterectomy S/P insertion of iliac artery stent S/P thyroidectomy Stenosis of left subclavian artery Social History Smoking Status: Current every day smoker tobacco type: cigarettes alcohol intake: never caffeine: Yes Type: coffee and tea ROS ROS ED ROS Narrative Constitutional: No fever, no chills. HEENT: No sore throat. No neck pain. No new loss of vision. No rhinorrhea. Right eye pain. Burning sensation lower portion of right eye. Cardiovascular: No chest pain. No palpitations. No pedal edema. Respiratory: No cough, no shortness of breath. Abdominal: No abdominal pain. No nausea. No vomiting. Genitourinary: No dysuria. No hematuria. Musculoskeletal: No myalgias. No arthralgias. Neurologic: No headaches. No dizziness. No lightheadedness. Skin: No rash. No change in color. Psychiatric: No depression. No anxiety. EXAM Physical Exam Narrative Exam Narrative: Afebrile. Vital signs noted. HEENT: Normocephalic. Atraumatic. PERRL, EOMI. Neck soft and supple. No point tenderness or step off. Patient having difficulty opening her right eye. With gentle opening of her right eyelids, PERRL, EOMI. Mild conjunctival injection. No exudate. Cardiovascular: Regular rate and rhythm. No murmurs, rubs, or gallops a ppreciated. Respiratory: No tachypnea. Lungs clear to auscultation bilaterally. Gastrointestinal: Abdomen soft, nontender, with normoactive bowel sounds. No rebound or guarding. Neurological: Awake. Alert. Nonfocal, nonlateralizing. Skin: No rash. Normal color. No pallor. Musculoskeletal: No pedal edema. Full range of motion extremities. Const Vital Signs: 02/17/22 21:33 Temperature 98.1 F Temperature Source Temporal Pulse Rate 56 L Respiratory Rate 16 Blood Pressure 198/94 H Blood Pressure Mean 128 Pulse Ox 99 Oxygen Delivery Method Room Air MDM MDM MDM Narrative Medical decision making narrative: Tetracaine was instilled in her right eye. She is now able to open it better. Fluorescein was added to her right eye which did reveal a corneal abrasion under her right pupil. There is no streaming or Lisa sign. She did not tolerate slit-lamp examination. At this point in time, she will be treated as a corneal abrasion and she was given ciprofloxacin drops. 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 Gibbs. Return instructions to the emergency department were reviewed. Disposition is discharged home in stable condition. Discharge Plan Triage Chief Complaint: Eye Problem ED Provider: Nuno Grider Dx/Rx/DC Orders Clinical Impression: Acute pain in right eye, Corneal abrasion, right, Multiple sclerosis Instructions: ED Corneal Abrasion Prescriptions: No Action gabapentin 800 mg tablet 800 mg PO TID RF: 0 Marijuana PO .prn RF: 0 baclofen 20 mg tablet 20 mg PO Q8H RF: 0 levothyroxine 50 mcg tablet 50 mcg PO DAILY RF: 0 oxycodone 10 mg tablet 10 mg PO BID RF: 0 fluticasone propionate 50 mcg/actuation spray,suspension 2 spray intranasal DAILY PRN (Reason: Allergy Symptoms) RF: 0 cholecalciferol (vitamin D3) 5,000 UNIT tablet 5,000 unit PO DAILY RF: 0 clopidogrel 75 mg tablet 75 mg PO QODAY RF: 0 metoprolol succinate 25 mg tablet extended release 24 hr 25 mg PO DAILY Qty: 90 RF: 3 Primary Care Provider: Daron Benton Referrals: Daron Benton MD [Primary Care Provider] - Cecilio Gibbs MD [STAFF PHYSICIAN] - 3-5 Days Disposition Disposition: Home, Self Care
[2022-02-17] MEDS: Ciprofloxacin 0.3% 2.5ml Bottle RIGHT EYE (22:19)
[2022-02-17 22:28] VITALS: BP 145/87; PULSE 82; RESP 15; O2SAT 98
--- NOTE | 2022-02-17 22:28 | ED.RN ---
ciloxan given prior to d/c.
== END 2022-02-17 22:31 | disposition home or self-care (01) ==
LOC: ED 22:02
PROVIDERS: Emergency Provider Emergency Medicine; PCP Family Medicine; Visit Provider Emergency Medicine
DX: S05.01XA Injury of conjunctiva and corneal abrasion without foreign body, right eye, initial encounter (principal); G35 Multiple sclerosis; I25.10 Atherosclerotic heart disease of native coronary artery without angina pectoris; F17.210 Nicotine dependence, cigarettes, uncomplicated; Z86.73 Personal history of transient ischemic attack (TIA), and cerebral infarction without residual deficits; X58.XXXA Exposure to other specified factors, initial encounter
CPT/HCPCS: 99282

== ENCOUNTER 2022-02-18 04:08 | Emergency (ER) | payer MEDICARE, MEDICAID, SELFPAY ==
[2022-02-18 04:09] VITALS: BP 169/96; PULSE 54; RESP 18; TEMP 36.1; O2SAT 97; BMI 21.2
--- NOTE | 2022-02-18 04:32 | EKG12_ITS ---
Test Reason : CP Blood Pressure : / mmHG Vent. Rate : 051 BPM Atrial Rate : 051 BPM P-R Int : 152 ms QRS Dur : 082 ms QT Int : 508 ms P-R-T Axes : 048 024 036 degrees QTc Int : 468 ms Sinus bradycardia Otherwise normal ECG Confirmed by DANY FOX, JAVED ([id number]), pictures editor ADI CORDERO ([id number]) on 02/21/2022 11:11:16 AM Referred By: BRANDI Confirmed By:JAVED SAENZ MD
--- NOTE | 2022-02-18 04:32 | CT_ITS ---
STUDY: CT BRAIN WITHOUT CONTRAST REASON FOR EXAM: Female, 66 years old. Paresthesias RADIATION DOSAGE (If Supplied By Facility): CTDIvol = ( 44.99 ) mGy, DLP = ( 745.49 ) mGycm TECHNIQUE: Transaxial CT imaging of the brain was performed without administration of intravenous contrast material. Individualized dose optimization techniques were used for this CT. COMPARISON: No relevant priors. FINDINGS: Extensive streak artifact arises from a rounded metallic density/embolization coil material which lies at the midline in the region of the anterior communicating artery. Normal soft tissue structures. Normal calvarium. Normal size ventricles and extra-axial spaces for the patient''s age. Normal white matter tracts of the cerebral hemispheres. Normal basal ganglia and thalami. Normal brainstem. Normal cerebellum. There is no intracranial hemorrhage. There are no findings of an acute ischemic infarction. Normal visualized paranasal sinuses. Visualized globes are symmetric. Vascular calcification is present within the carotid siphons. CT/Brain/Head without Contrast IMPRESSION: Previous aneurysm coiling. No acute intracranial hemorrhage or other acute intracranial abnormality. Electronically Signed: Thierno Nguyen MD at 5:40 EDT ,
[2022-02-18 04:41] LABS: Absolute Lymphocyte Count 1.64 X10^3/uL (0.83-4.51); Absolute Neutrophil Count 3.8 X10^3/uL (2.0-7.7); Basophil# 0.06 X10^3/uL; Basophil% 0.9 % (0-1); Eosinophils% 3.1 % (0-5); Hematocrit 45.7 % (37-47); Lymphocyte # 1.64 X10^3/ul (0.83-4.51); Lymphocyte % 25.5 % (19-41); Mean Corp Hgb Conc 32.8 g/dL (32-36); Mean Corpuscular Volume 88.2 fL (81-99); Mean Platelet Vol. 9.8 fl (6.2-12.0); Monocyte# 0.72 X10^3/uL; Monocyte% 11.2 % (0-10); NRBC Flagged by Analyzer 0 % (0-5); Neutrophil # 3.77 X10^3/uL (2.7-7.7); Neutrophil % 58.7 % (47-70); Platelet Count 207 K/mm3 (150-450); RBC Distribution Width CV 13.5 % (11.6-14.6); RBC Distribution Width SD 43.7 fl (35.1-43.9); Red Blood Count 5.18 M/mm3 (4.2-5.4); White Blood Count 6.4 K/mm3 (4.4-11.0)
[2022-02-18] MEDS: Aspirin 325 MG Tablet PO (04:46)
--- NOTE | 2022-02-18 04:46 | EDS_ITS ---
HPI History of Present Illness Chief Complaint: Chest Pain Narrative Narrative: Patient is a 66-year-old female with complex past medical history. She was seen just earlier today secondary to eye pain and diagnosed with a corneal abrasion. She states she went home and was able to go to bed. She states she woke up to take her eyedrops and noticed she was having some back pain and therefore took a pain pill at that time. She states that after this she noticed some midsternal chest discomfort that she describes as a pressure sensation and reports she also felt some irritation into her left arm. She does have a complex medical history that includes previous strokes and multiple v essel occlusions and therefore was concerned this could be cardiac in nature and called EMS to bring her in for evaluation. Patient states that upon arrival to the ER the chest pain symptoms have resolved. She states that she does have numbness in her chest and in her jaw or region. She states this is not abnormal for her because of her previous carotid bypass and MS but she states it does seem slightly worse than her baseline. Therefore with concern she could have had a possible GA presents for evaluation. [facility] Medical History Angina pectoris Bilateral carotid artery stenosis Chronic pain syndrome Essential (primary) hypertension Fatty liver GERD (gastroesophageal reflux disease) Goiter History of transient ischemic attack (TIA) HLD (hyperlipidemia) Multiple sclerosis Nonobstructive atherosclerosis of coronary artery Nonsustained paroxysmal supraventricular tachycardia Osteoarthritis Osteoporosis Peripheral vascular occlusive disease Psoriasis Psoriatic arthritis Thrombocytopenia Home Medications cholecalciferol (vitamin D3) 5,000 unit PO DAILY 12/16/13 [History Last Taken 07/16/19] gabapentin 800 mg tablet 800 mg PO TID tab 07/16/18 [History Last Taken 07/16/19] Marijuana PO .prn 08/11/21 [History Last Taken Unknown] baclofen 20 mg tablet 20 mg PO Q8H tab 08/11/21 [History Last Taken 01/18/22] fluticasone propionate 50 mcg/actuation nasal spray,suspension 2 spray INTRANASAL DAILY PRN g 08/11/21 [History Last Taken Unknown] levothyroxine 50 mcg tablet 50 mcg PO DAILY tab 08/11/21 [History Last Taken 01/18/22] oxycodone 10 mg tablet 10 mg PO BID tab 08/11/21 [History Last Taken 01/18/22] metoprolol succinate 25 mg tablet,extended release 24 hr 25 mg PO DAILY #90 tab 10/17/21 [Rx Last Taken Unknown] clopidogrel 75 mg PO QODAY 02/14/22 [History Last Taken Unknown] prednisone 40 mg PO DAILY 5 Days #10 tab 02/18/22 [Rx Last Taken Unknown] Allergy/AdvReac Type Severity Reaction Status Date / Time colestipol [From Colestid] Allergy Mild unknown Verified 02/18/22 04:16 pregabalin [From Lyrica] Allergy Mild Hives Verified 02/18/22 04:16 amitriptyline Allergy Rash Verified 02/18/22 04:16 temazepam [From Restoril] AdvReac Mild Nausea/Vom/ Verified 02/18/22 04:16 Diarrhea Antihistamines - Alkylamine AdvReac Nausea/Vom/ Verified 02/18/22 04:16 Diarrhea Antihistamines - Ethanolamine AdvReac Nausea/Vom/ Verified 02/18/22 04:16 Diarrhea Antihistamines - AdvReac Nausea/Vom/ Verified 02/18/22 04:16 Ethylenediamine Diarrhea Antihistamines - Piperazine AdvReac Nausea/Vom/ Verified 02/18/22 04:16 Diarrhea Antihistamines - Piperidine AdvReac Nausea/Vom/ Verified 02/18/22 04:16 Diarrhea aspirin AdvReac I'M ON Verified 02/18/22 04:16 BLOOD THINNERS codeine AdvReac Nausea Verified 02/18/22 04:16 morphine AdvReac Nausea Verified 02/18/22 04:16 Vyrmymp-LET-SmD Reductase AdvReac Nausea Verified 02/18/22 04:16 Inhibitor [Wegekbh-Bwe-Rqg Reductase Inhibitor] STEROIDS BY MOUTH AdvReac Upset Uncoded 02/18/22 04:16 Stomach Family History Mother Cancer CAD (coronary artery disease) Brain tumor Grandfather CVA (cerebral vascular accident) Father CAD (coronary artery disease) Ruptured abdominal aortic aneurysm (AAA) Sister Brain aneurysm Surgical History Brain aneurysm Fracture of right lower leg H/O hemorrhoidectomy H/O: History of angioplasty of peripheral vessel History of angioplasty of peripheral vessel (07/11/19) History of section History of hemorrhoidectomy History of hysterectomy History of left breast biopsy History of left heart catheterization (01/25/15) History of left-sided carotid endarterectomy History of partial thyroidectomy (11/30/05) History of right-sided carotid endarterectomy S/P coil embolization of cerebral aneurysm S/P hysterectomy S/P insertion of iliac artery stent S/P thyroidectomy Stenosis of left subclavian artery Social History Smoking Status: Current every day smoker tobacco type: cigarettes alcohol intake: never caffeine: Yes Type: coffee and tea ROS ROS ED Constitutional Constitutional ED: Denies chills or fever(s) ENT ENT ED: Denies sore throat Cardiovascular Cardiovascular: Reports chest pain and palpitations; Denies racing heartbeat Respiratory/Chest Respiratory/Chest: Denies cough or dyspnea Gastrointestinal Gastrointestinal: Reports nausea; Denies abdominal pain, diarrhea or vomiting Genitourinary Genitourinary ED: Denies dysuria Musculoskeletal Musculoskeletal: Reports back pain and myalgias Integumentary Denies rash Neurologic Neurologic: Reports headache(s) and paresthesias Hematologic/Lymphatic Hematologic/Lymphatic: Reports easy bleeding and easy bruising EXAM Physical Exam Const Vital Signs: 02/18/22 04:09 02/18/22 04:14 02/18/22 05:00 Temperature 97 F L Temperature Source Temporal Pulse Rate 54 L 50 L Respiratory Rate 18 18 Respiratory Effort Normal Non-Labored Respiratory Pattern Normal Blood Pressure 169/96 H 119/79 Blood Pressure Mean 120 92 Pulse Ox 97 98 Oxygen Delivery Method Room Air Room Air Oxygen Flow Rate (L/min) 02/18/22 06:00 Temperature Temperature Source Pulse Rate 43 L Respiratory Rate 18 Respiratory Effort Respiratory Pattern Blood Pressure 160/89 H Blood Pressure Mean 112 Pulse Ox 99 Oxygen Delivery Method Nasal Cannula Oxygen Flow Rate (L/min) 2 Positive well nourished and well developed General Appearance ED: well developed HEENT Reports dry mucous membranes Mouth ED: Yes dry mucous membranes Mouth: dry mucous membranes Eyes PERRL and EOMs intact bilaterally Neck supple and no JVD Chest Wall palpation of chest normal Resp normal respiratory effort and clear to auscultation bilaterally Cardio regular rate and regular rhythm Rate: other Other Details: Radial pulses are +2-4 bilaterally are equal and symmetric GI non-tender, non-distended and no masses GI Narrative: Abdomen is soft nontender nondistended with hypoactive bowel sounds no voluntary guarding or rigidity no pulsatile mass. Palpation: soft Extremity normal to inspection Extremity Narrative: No asymmetric edema no pitting edema negative Homans' sign bilaterally Neuro oriented x3 Neuro Narrative: Patient received an NIH stroke scale score of 1 for reported paresthesias throughout the face. Otherwise there is no pronator drift no dysmetria or truncal ataxia. Patient reports paresthesias but when asked if she feels similar touch sensation to the right and left face she states it feels equal. Sensorium / Orientation: alert Psych Psych Narrative: Patient has a depressed/flat affect Mood & Affect: depressed Skin no rashes or lesions noted Skin Narrative: Skin is slightly pale in color but capillary refill is less than 3 seconds. There is clubbing to the fingernails consistent with history of nicotine use/smoking MDM MDM MDM Narrative Medical decision making narrative: Patient presented to the ER in no acute distress and reported spontaneous resolution of her chest discomfort. She did report paresthesias which she states are chronic in nature but she felt they were slightly more severe. Secondary to this I did elect to add a head CT along with the cardiac work-up. The initial troponin was 6 the delta actually decreased to 5 and the patient's chest discomfort remained absent. Chest x-ray revealed no acute findings and after patient was treated with fentanyl and a stress dose of hydrocortisone she reported improvement of her symptoms. On reevaluation stroke scale score remains 1 because of the reported paresthesia but otherwise there are no focal deficit. We discussed possible treatment options at this time and patient states as she is feeling better and her work-up does not show anything obvious she does agree/believe this is an MS exacerbation and will talk to her neurologist about IV steroid infusions over the next week. She states she feels well enough and would like to go home at this time and as work-up does not reveal any acute cardiac damage or acute stroke changes patient will be discharged home and placed on a prednisone burst for the next 5 days. Lab Data Attestation: I reviewed the patient's lab results. Labs: Laboratory Results - last 24 hr 02/18/22 02/18/22 02/18/22 04:30 04:30 04:30 WBC 6.4 RBC 5.18 Hgb 15.0 Hct 45.7 MCV 88.2 MCH 29.0 MCHC 32.8 RDW Std Deviation 43.7 RDW Coeff of David 13.5 Plt Count 207 MPV 9.8 Immature Gran % (Auto) 0.600 Neut % (Auto) 58.7 Lymph % (Auto) 25.5 Hickman % (Auto) 11.2 H Eos % (Auto) 3.1 Baso % (Auto) 0.9 Absolute Neuts (auto) 3.8 Absolute Lymphs (auto) 1.64 Nucleated RBC % 0 PT 12.6 INR 1.0 APTT 28.9 Sodium 141 Potassium 3.6 Chloride 108 H Carbon Dioxide 29.0 Anion Gap 4 L BUN 11 Creatinine 0.79 Estim Creat Clear Calc 51.11 Est GFR (MDRD) Af Amer 93 Est GFR (MDRD) Non-Af 77 BUN/Creatinine Ratio 13.9 Glucose 112 H Calcium 8.8 Magnesium 2.1 Troponin I High Sens 6 02/18/22 06:34 WBC RBC Hgb Hct MCV MCH MCHC RDW Std Deviation RDW Coeff of David Plt Count MPV Immature Gran % (Auto) Neut % (Auto) Lymph % (Auto) Hickman % (Auto) Eos % (Auto) Baso % (Auto) Absolute Neuts (auto) Absolute Lymphs (auto) Nucleated RBC % PT INR APTT Sodium Potassium Chloride Carbon Dioxide Anion Gap BUN Creatinine Estim Creat Clear Calc Est GFR (MDRD) Af Amer Est GFR (MDRD) Non-Af BUN/Creatinine Ratio Glucose Calcium Magnesium Troponin I High Sens 5 Radiography Diagnostic Testing: Clinical Impression(s) from Imaging Studies Brain CT 02/18/22 04:32 IMPRESSION: Previous aneurysm coiling. No acute intracranial hemorrhage or other acute intracranial abnormality. Electronically Signed: Thierno Nguyen MD at 5:40 EDT , Chest X-Ray 02/18/22 05:04 IMPRESSION: No acute cardiopulmonary disease process identified. Electronically Signed: Thierno Nguyen MD at 5:49 EDT , X-rays interpreted by the emergency physician shows no acute infiltrate pneumothorax or pleural effusion Discharge Plan Triage Chief Complaint: Chest Pain ED Provider: Yasmani Haynes Dx/Rx/DC Orders Clinical Impression: Multiple sclerosis exacerbation, Paresthesias Instructions: Multiple Sclerosis, ED Paraesthesias Prescriptions: New prednisone 20 mg tablet 40 mg PO DAILY 5 Days Qty: 10 RF: 0 No Action gabapentin 800 mg tablet 800 mg PO TID RF: 0 Marijuana PO .prn RF: 0 baclofen 20 mg tablet 20 mg PO Q8H RF: 0 levothyroxine 50 mcg tablet 50 mcg PO DAILY RF: 0 oxycodone 10 mg tablet 10 mg PO BID RF: 0 fluticasone propionate 50 mcg/actuation spray,suspension 2 spray intranasal DAILY PRN (Reason: Allergy Symptoms) RF: 0 cholecalciferol (vitamin D3) 5,000 UNIT tablet 5,000 unit PO DAILY RF: 0 clopidogrel 75 mg tablet 75 mg PO QODAY RF: 0 metoprolol succinate 25 mg tablet extended release 24 hr 25 mg PO DAILY Qty: 90 RF: 3 Primary Care Provider: Daron Benton Referrals: Daron Benton MD [Primary Care Provider] - Disposition Disposition: Home, Self Care
[2022-02-18 04:54] LABS: Prothrombin Time (Protime)PT. 12.6 SECONDS (11.7-14.9)
[2022-02-18 04:55] LABS: Partial Thromboplast Time 28.9 Seconds (24.1-36.2)
[2022-02-18 05:00] VITALS: BP 119/79; PULSE 50; RESP 18; O2SAT 98
[2022-02-18 05:04] LABS: Anion Gap 4 (5-15); BUN 11 mg/dL (7-18); BUN/Creat Ratio 13.9 RATIO (10-20); Calcium,Total 8.8 mg/dL (8.5-10.1); Chloride 108 mmol/L (98-107); Creatinine, Serum 0.79 mg/dL (0.55-1.02); EST Glomerular Filtration Rate 77 mL/min (>60); Est Glom Filt Rate - Afr Amer 93 mL/min (>60); Estimated Creatinine Clearance 51.11 ml/min; Glucose 112 mg/dL (74-106); Magnesium 2.1 mg/dL (1.6-2.6); Potassium 3.6 mmol/L (3.5-5.1); Sodium Level 141 mmol/L (136-145); Troponin-I HS 6 pg/mL (3.0-54.0)
--- NOTE | 2022-02-18 05:04 | RAD_ITS ---
STUDY: X-RAY CHEST REASON FOR EXAM: Female, 66 years old. chest pain TECHNIQUE: Single AP portable view of the chest. COMPARISON: Previous chest radiographs of 05/20/2019.. FINDINGS: Patient has accomplished a lesser degree of inspiration. The lungs are clear . There is no demonstrated pleural abnormality. Upper normal size heart. Thoracic aorta is mildly elongated. Pulmonary vasculature is within normal limits. Mild thoracic dextroscoliosis again noted. Osseous structures are demineralized. There is no demonstrated abnormality of the visualized soft tissue structures of the upper abdomen. RAD/Chest 1 View (Portable) IMPRESSION: No acute cardiopulmonary disease process identified. Electronically Signed: Thierno Nguyen MD at 5:49 EDT ,
[2022-02-18] MEDS: Hydrocortisone Sod Succinate 100 MG/2 ML Vial IV (05:30)
[2022-02-18] MEDS: Ondansetron 4 MG/2 ML Vial IV (05:32)
[2022-02-18] MEDS: fentaNYL 100 MCG/2 ML Ampul 50 MCG IV (05:34)
[2022-02-18 06:00] VITALS: BP 160/89; PULSE 43; RESP 18; O2SAT 99
[2022-02-18 07:11] LABS: Troponin-I HS 5 pg/mL (3.0-54.0)
[2022-02-18 07:24] VITALS: BP 145/84; PULSE 82; RESP 16; O2SAT 98
== END 2022-02-18 07:50 | disposition home or self-care (01) ==
PROVIDERS: Emergency Provider Emergency Medicine; PCP Family Medicine; Visit Provider Emergency Medicine
DX: G35 Multiple sclerosis (principal); R07.9 Chest pain, unspecified; I25.10 Atherosclerotic heart disease of native coronary artery without angina pectoris; I10 Essential (primary) hypertension; R20.2 Paresthesia of skin; M54.9 Dorsalgia, unspecified; E78.5 Hyperlipidemia, unspecified; G89.4 Chronic pain syndrome; Z79.02 Long term (current) use of antithrombotics/antiplatelets; Z79.899 Other long term (current) drug therapy; Z86.73 Personal history of transient ischemic attack (TIA), and cerebral infarction without residual deficits
CPT/HCPCS: 70450; 71045; 80048; 83735; 84484; 85025; 85610; 85730; 93005; 96374; 96375; 99285; A4216; J2405

== ENCOUNTER 2022-02-20 16:37 | Emergency (ER) | payer MEDICARE, MEDICAID, SELFPAY ==
[2022-02-20 16:38] VITALS: BP 215/116; PULSE 46; RESP 15; TEMP 35.8; O2SAT 98; BMI 20.6
--- NOTE | 2022-02-20 17:17 | EKG12_ITS ---
Test Reason : Blood Pressure : / mmHG Vent. Rate : 045 BPM Atrial Rate : 045 BPM P-R Int : 152 ms QRS Dur : 092 ms QT Int : 508 ms P-R-T Axes : 066 057 062 degrees QTc Int : 439 ms Sinus bradycardia nonspecific ST-segment abnormality Confirmed by DANY FOX, JAVED ([id number]), department editor ADI CORDERO ([id number]) on 02/23/2022 11:24:16 AM Referred By: WAQAR Confirmed By:JAVED SAENZ MD
--- NOTE | 2022-02-20 17:17 | RAD_ITS ---
STUDY: X-RAY CHEST REASON FOR EXAM: Female, 66 years old. CHEST PAIN chest pain TECHNIQUE: XR Chest 1 View COMPARISON: Two days ago. FINDINGS: There is no demonstrated pleural abnormality. Normal size heart. Normal mediastinum and david. Normal visualized pulmonary arteries. There is atherosclerotic calcification of the aortic arch with tortuosity. There are diffuse degenerative changes of the visualized thoracic spine. Normal visualized ribs, clavicles, and shoulders. There is no demonstrated abnormality of the visualized soft tissue structures of the upper abdomen. RAD/Chest 1 View (Portable) IMPRESSION: There are no acute findings. Electronically Signed: Rafael Daniel MD at 19:05 EDT ,
[2022-02-20 17:24] VITALS: O2SAT 98
--- NOTE | 2022-02-20 17:34 | EDS_ITS ---
HPI History of Present Illness Chief Complaint: Nausea/Vomiting Informant: patient Narrative Narrative: Patient states she is here with chest pain nausea vomiting. She was here recently and thought to have a flare of her MS. This is a normal time of year where she has a flare. She commonly gets IV steroids. She is on oral prednisone. Since taking the oral prednisone she has had nausea and vomiting. She is pretty sure she has had this before. She is not really having abdominal pain though. She also complains that since this morning she noticed some soreness in her left shoulder that is exacerbated when she presses on her left side of the chest. She also feels like her heart rate is different. She thought it was going fast but then it was slow and then it was irregular. She does have a heart rate hanging around 50 which she says is not normal for her. She is not having dyspnea. She is not having diarrhea. Nothing consistently makes her symptoms better or worse. Patient also states she feels as though her thoughts are a little slower. She is not sure if this is the MS or the steroids. But I do note it takes multiple times questioning to get answers from her. However she is ANO x3. [facility] Medical History Angina pectoris Bilateral carotid artery stenosis Chronic pain syndrome Essential (primary) hypertension Fatty liver GERD (gastroesophageal reflux disease) Goiter History of transient ischemic attack (TIA) HLD (hyperlipidemia) Multiple sclerosis Nonobstructive atherosclerosis of coronary artery Nonsustained paroxysmal supraventricular tachycardia Osteoarthritis Osteoporosis Peripheral vascular occlusive disease Psoriasis Psoriatic arthritis Thrombocytopenia Home Medications cholecalciferol (vitamin D3) 5,000 unit PO DAILY 12/16/13 [History Last Taken 07/16/19] gabapentin 800 mg tablet 800 mg PO TID tab 07/16/18 [History Last Taken ] Marijuana PO .prn 08/11/21 [History Last Taken Unknown] baclofen 20 mg tablet 20 mg PO Q8H tab 08/11/21 [History Last Taken 01/18/22] fluticasone propionate 50 mcg/actuation nasal spray,suspension 2 spray INTRANASAL DAILY PRN g 08/11/21 [History Last Taken Unknown] levothyroxine 50 mcg tablet 50 mcg PO DAILY tab 08/11/21 [History Last Taken 01/18/22] oxycodone 10 mg tablet 10 mg PO BID tab 08/11/21 [History Last Taken 01/18/22] metoprolol succinate 25 mg tablet,extended release 24 hr 25 mg PO DAILY #90 tab 10/17/21 [Rx Last Taken Unknown] clopidogrel 75 mg PO QODAY 02/14/22 [History Last Taken Unknown] prednisone 40 mg PO DAILY 5 Days #10 tab 02/18/22 [Rx Last Taken Unknown] Allergy/AdvReac Type Severity Reaction Status Date / Time colestipol [From Colestid] Allergy Mild unknown Verified 02/20/22 16:56 pregabalin [From Lyrica] Allergy Mild Hives Verified 02/20/22 16:56 amitriptyline Allergy Rash Verified 02/20/22 16:56 temazepam [From Restoril] AdvReac Mild Nausea/Vom/ Verified 02/20/22 16:56 Diarrhea Antihistamines - Alkylamine AdvReac Nausea/Vom/ Verified 02/20/22 16:56 Diarrhea Antihistamines - Ethanolamine AdvReac Nausea/Vom/ Verified 02/20/22 16:56 Diarrhea Antihistamines - AdvReac Nausea/Vom/ Verified 02/20/22 16:56 Ethylenediamine Diarrhea Antihistamines - Piperazine AdvReac Nausea/Vom/ Verified 02/20/22 16:56 Diarrhea Antihistamines - Piperidine AdvReac Nausea/Vom/ Verified 02/20/22 16:56 Diarrhea aspirin AdvReac I'M ON Verified 02/20/22 16:56 BLOOD THINNERS codeine AdvReac Nausea Verified 02/20/22 16:56 morphine AdvReac Nausea Verified 02/20/22 16:56 Egwcevm-NDB-JlN Reductase AdvReac Nausea Verified 02/20/22 16:56 Inhibitor [Yugqmme-Hep-Btk Reductase Inhibitor] STEROIDS BY MOUTH AdvReac Upset Uncoded 02/20/22 16:56 Stomach Family History Mother Cancer CAD (coronary artery disease) Brain tumor Grandfather CVA (cerebral vascular accident) Father CAD (coronary artery disease) Ruptured abdominal aortic aneurysm (AAA) Sister Brain aneurysm Surgical History Brain aneurysm Fracture of right lower leg H/O hemorrhoidectomy H/O: History of angioplasty of peripheral vessel History of angioplasty of peripheral vessel (07/11/19) History of section History of hemorrhoidectomy History of hysterectomy History of left breast biopsy History of left heart catheterization (01/25/15) History of left-sided carotid endarterectomy History of partial thyroidectomy (11/30/05) History of right-sided carotid endarterectomy S/P coil embolization of cerebral aneurysm S/P hysterectomy S/P insertion of iliac artery stent S/P thyroidectomy Stenosis of left subclavian artery Social History Smoking Status: Current every day smoker tobacco type: cigarettes alcohol intake: never caffeine: Yes Type: coffee and tea ROS ROS ED Constitutional Constitutional ED: Denies chills or fever(s) Eyes Eyes: Denies blurry vision ENT ENT ED: Denies rhinorrhea or sore throat Cardiovascular Cardiovascular: Reports chest pain, palpitations and racing heartbeat Gastrointestinal Gastrointestinal: Reports nausea and vomiting; Denies abdominal pain or diarrhea Genitourinary Genitourinary ED: Denies dysuria Musculoskeletal Musculoskeletal: Reports other Details: Left shoulder area pain as above. Integumentary Denies rash Neurologic Neurologic: Denies headache(s) Psychiatric Psychiatric: Denies depression Endocrine Endocrinology: Denies polydipsia or polyuria Allergic/Immunologic Allergic/Immunologic ED: Denies urticaria EXAM Physical Exam Const Vital Signs: 02/20/22 16:38 02/20/22 17:24 Temperature 96.5 F L Temperature Source Temporal Pulse Rate 46 L Respiratory Rate 15 Blood Pressure 215/116 H Blood Pressure Mean 149 Pulse Ox 98 98 Oxygen Delivery Method Room Air Room Air Positive well nourished and well developed General Appearance ED: well developed and NAD HEENT Reports moist mucous membranes; Denies dry mucous membranes Mouth ED: No dry mucous membranes Mouth: No dry mucous membranes Eyes General Eye ED: Negative for pale conjunctiva or scleral icterus Neck no JVD Chest Wall inspection of chest normal Chest Narrative: Patient does have some reproducible chest discomfort on the left. But I do not see any bruising or skin changes. Resp normal respiratory effort Cardio regular rhythm; Negative for regular rate Rate: bradycardia GI normal to inspection, nondistended, normoactive bowel sounds and non-tender Palpation: soft Back/Spine no CVA tenderness Extremity normal to inspection General Extremety ED: Negative for tenderness Neuro oriented x3 Sensorium / Orientation: alert Psych mental status grossly normal Mood & Affect: Negative for tearful Skin no rashes or lesions noted and no wounds MDM MDM MDM Narrative Medical decision making narrative: Patient CBC is unremarkable. Electrolytes liver function test lipase is normal. I reviewed her prior visit. She had this same type of pain. I talked to her about that. She states she thinks it is all her MS flare. When she has an MS flare she gets weak and will get pains all over. She used to get outpatient IV infusions of Solu-Medrol. She states she does not want to take prednisone anymore. I will write for some Zofran. I did offer Solu-Medrol here as a dose which he accepted. This patient does not want to stay. She wants to go home. She has an appointment with her neurologist tomorrow. She does not want to stay in the hospital but she wants to see her neurologist who she seen for a long time. Since her work-up including troponin is negative I think this is reasonable. I also looked back in her chart. Her heart rate runs 50 most of the time. This is not new. Her blood pressure is fine. Lab Data Attestation: I reviewed the patient's lab results. Labs: Laboratory Results - last 24 hr 02/20/22 02/20/22 02/20/22 17:30 17:30 17:30 WBC 6.2 RBC 4.80 Hgb 14.1 Hct 43.5 MCV 90.6 MCH 29.4 MCHC 32.4 RDW Std Deviation 45.6 H RDW Coeff of David 13.7 Plt Count 171 MPV 10.0 Immature Gran % (Auto) 0.700 Neut % (Auto) 65.5 Lymph % (Auto) 24.4 [place] % (Auto) 8.3 Eos % (Auto) 0.8 Baso % (Auto) 0.3 Absolute Neuts (auto) 4.0 Absolute Lymphs (auto) 1.50 Nucleated RBC % 0 PT 12.3 INR 1.0 Sodium 142 Potassium 3.5 Chloride 107 Carbon Dioxide 30.0 Anion Gap 5 BUN 15 Creatinine 0.84 Estim Creat Clear Calc 59.57 Est GFR (MDRD) Af Amer 86 Est GFR (MDRD) Non-Af 71 BUN/Creatinine Ratio 17.8 Glucose 97 Calcium 8.7 Total Bilirubin 0.20 Direct Bilirubin 0.10 AST 11 L ALT 18 Alkaline Phosphatase 97 Troponin I High Sens 4 Total Protein 6.5 Albumin 3.3 Globulin 3.2 Lipase 38 L EKG Initial EKG: Comments: EKG done for bradycardia read by me shows sinus rhythm with bradycardic rate at 45. No acute ST elevation or depression. No ectopy. [place] interval, QRS duration and QTc are all normal Discharge Plan Triage Chief Complaint: Nausea/Vomiting ED Provider: Michele Kebede Dx/Rx/DC Orders Clinical Impression: Multiple sclerosis exacerbation Instructions: Multiple Sclerosis Prescriptions: No Action gabapentin 800 mg tablet 800 mg PO TID RF: 0 Marijuana PO .prn RF: 0 baclofen 20 mg tablet 20 mg PO Q8H RF: 0 levothyroxine 50 mcg tablet 50 mcg PO DAILY RF: 0 oxycodone 10 mg tablet 10 mg PO BID RF: 0 fluticasone propionate 50 mcg/actuation spray,suspension 2 spray intranasal DAILY PRN (Reason: Allergy Symptoms) RF: 0 cholecalciferol (vitamin D3) 5,000 UNIT tablet 5,000 unit PO DAILY RF: 0 clopidogrel 75 mg tablet 75 mg PO QODAY RF: 0 prednisone 20 mg tablet 40 mg PO DAILY 5 Days Qty: 10 RF: 0 metoprolol succinate 25 mg tablet extended release 24 hr 25 mg PO DAILY Qty: 90 RF: 3 Primary Care Provider: Daron Benton Referrals: Daron Benton MD [Primary Care Provider] - Activity Restrictions/Additional Instructions: Follow-up with your neurologist as scheduled tomorrow. Disposition Disposition: Home, Self Care
[2022-02-20 17:39] LABS: Basophil# 0.02 X10^3/uL; Basophil% 0.3 % (0-1); Eosinophil# 0.05 X10^3/uL; Eosinophils% 0.8 % (0-5); Hematocrit 43.5 % (37-47); Hemoglobin 14.1 g/dL (12.0-15.0); Lymphocyte % 24.4 % (19-41); Mean Corp Hgb Conc 32.4 g/dL (32-36); Mean Corpuscular Hgb 29.4 pg (27.0-32.0); Mean Corpuscular Volume 90.6 fL (81-99); Monocyte# 0.51 X10^3/uL; Monocyte% 8.3 % (0-10); NRBC Flagged by Analyzer 0 % (0-5); Neutrophil # 4.03 X10^3/uL (2.7-7.7); Neutrophil % 65.5 % (47-70); Platelet Count 171 K/mm3 (150-450); RBC Distribution Width CV 13.7 % (11.6-14.6); RBC Distribution Width SD 45.6 fl (35.1-43.9); White Blood Count 6.2 K/mm3 (4.4-11.0)
[2022-02-20 17:54] LABS: Prothrombin Time (Protime)PT. 12.3 SECONDS (11.7-14.9)
[2022-02-20 17:56] LABS: AST(SGOT) 11 U/L (15-37); Alanine Aminotransfer ALT/SGPT 18 U/L (13-56); Albumin, Serum 3.3 g/dL (3.2-5.0); Alkaline Phosphatase 97 U/L (45-117); Anion Gap 5 (5-15); BUN 15 mg/dL (7-18); BUN/Creat Ratio 17.8 RATIO (10-20); Calcium,Total 8.7 mg/dL (8.5-10.1); Chloride 107 mmol/L (98-107); Creatinine, Serum 0.84 mg/dL (0.55-1.02); EST Glomerular Filtration Rate 71 mL/min (>60); Est Glom Filt Rate - Afr Amer 86 mL/min (>60); Estimated Creatinine Clearance 59.57 ml/min; Globulin 3.2 g/dL (2.2-4.2); Glucose 97 mg/dL (74-106); Lipase 38 U/L (73-393); Potassium 3.5 mmol/L (3.5-5.1); Protein, Total 6.5 g/dL (6.4-8.2); Sodium Level 142 mmol/L (136-145); Troponin-I HS 4 pg/mL (3.0-54.0)
[2022-02-20 19:23] VITALS: BP 172/89; PULSE 67; RESP 15; O2SAT 97
[2022-02-20] MEDS: MethylPREDNISolone 125 MG/2 ML Vial 60 MG IV (19:23)
== END 2022-02-20 19:24 | disposition home or self-care (01) ==
PROVIDERS: Emergency Provider Emergency Medicine; PCP Family Medicine; Visit Provider Emergency Medicine
DX: G35 Multiple sclerosis (principal); L40.50 Arthropathic psoriasis, unspecified; R07.89 Other chest pain; R11.2 Nausea with vomiting, unspecified; I25.10 Atherosclerotic heart disease of native coronary artery without angina pectoris; I10 Essential (primary) hypertension; E78.5 Hyperlipidemia, unspecified; M19.90 Unspecified osteoarthritis, unspecified site; M81.0 Age-related osteoporosis without current pathological fracture; Z79.02 Long term (current) use of antithrombotics/antiplatelets; Z79.899 Other long term (current) drug therapy
CPT/HCPCS: 71045; 80048; 80076; 83690; 84484; 85025; 85610; 93005; 96374; 99284; A4216

== ENCOUNTER → 2022-05-02 | Outpatient (CLI) | payer MEDICARE, MEDICAID, SELFPAY ==
--- NOTE | 2022-05-02 16:45 | MRI_ITS ---
EXAM: MR HEAD WITHOUT AND WITH INTRAVENOUS CONTRAST CLINICAL INDICATION: [id number] TECHNIQUE: Multiplanar and multisequence MR images of the brain were obtained without and with intravenous contrast. This report was created using [employer] report [employer] technology. CONTRAST: IV 11ML dOTAREM COMPARISON: CT brain 02/18/2022 FINDINGS: BRAIN AND EXTRA-AXIAL SPACES: Increased T2 signal intensity within the cerebral white matter suggestive of chronic microvascular change. No intra- or extra-axial hemorrhage. No evidence of acute infarct. No intracranial mass or mass effect. There is preservation of the patel/white matter interface. Posterior fossa structures are unremarkable. Ventricles are appropriate for age. No hydrocephalus. Basal cisterns are patent. No abnormal contrast enhancement. SELLA: Unremarkable. Normal sella turcica, pituitary gland, infundibular stalk, optic chiasm and hypothalamus. AUDITORY SYSTEM: Unremarkable. The internal auditory canals are patent. BONES/JOINTS: Unremarkable. No discrete lytic or blastic abnormalities. SINUSES: Unremarkable as visualized. Clear. MASTOID AIR CELLS: Unremarkable as visualized. Clear. ORBITS: Unremarkable as visualized. Both globes, extraocular muscles, optic nerves and retrobulbar fat appear unremarkable. 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 MRI/Brain W/WO Contrast IMPRESSION: 1. No acute intracranial abnormality. 2. Chronic microvascular changes. Electronically Signed: Chago Mcintyre MD at 19:25 EDT ,
[2022-05-02 16:47] LABS: BUN 11 mg/dL (7-18); Creatinine, Serum 0.94 mg/dL (0.55-1.02); EST Glomerular Filtration Rate 63 mL/min (>60); Est Glom Filt Rate - Afr Amer 77 mL/min (>60)
== END | disposition home or self-care (01) ==
LOC: MRI 15:55
PROVIDERS: PCP Family Medicine; Referring Provider Nurse Practitioner Family; Visit Provider Nurse Practitioner Family
DX: G35 Multiple sclerosis (principal)
CPT/HCPCS: 36415; 70553; 82565; 84520; A9575

== ENCOUNTER → 2022-08-23 | Outpatient (CLI) | payer MEDICARE, MEDICAID, SELFPAY ==
--- NOTE | 2022-08-23 08:25 | ART_ITS ---
Reason For Study: Atherosclerosis Procedure A bilateral lower extremity continuous wave Doppler with analog waveform analysis and ankle brachial indexes. Left Segmental Pressures Left brachial= 148mmHg. Left posterior tibial artery = 73mmHg. Left dorsalis pedis artery = 59mmHg. The left dorsalis pedis waveforms are monophasic. The left posterior tibial artery waveforms are monophasic. Right Segmental Pressures Right brachial= 136mmHg. Right posterior tibial artery = 78mmHg. Right dorsalis pedis artery = 60mmHg. The right dorsalis pedis waveforms are monophasic. The right posterior tibial artery waveforms are biphasic. Indices The right ankle brachial index by the dorsalis pedis is 0.41. The right ankle brachial index by the posterior tibial artery is 0.53. The left ankle brachial index by the dorsalis pedis is 0.40. The left ankle brachial index by the posterior tibial artery is 0.49. VL/Ankle Brachial Index Interpretation Summary Bilateral moderate occlussive disease with JAY 0.53 and 0.49. Ordering Physician: Kam Nava Referring Physician: Daron Benton MD Performed By: Tena Davidson RVT
--- NOTE | 2022-08-23 08:25 | ADUL_ITS ---
Reason For Study: Stricture of artery Left Velocities Ext Iliac Artery, dist = 114.7 cm./sec. Common Femoral Artery, mid = 111.6 cm./sec. SFA, origin. 279 cm/sec. SFA, prox, 25.6 cm/sec. SFA, prox/mid-distal, No flow. SFA, distal, 54.6 cm/sec. Profunda Femoral Artery = 131.3 cm./sec. Popliteal Artery, mid = 29.3 cm./sec. Post. Tibial Artery, prox = 13.9 cm./sec. Post Tibial Artery, mid = 9.9 cm./sec. Post Tibial Artery, dist. = 9.9 cm./sec. Peroneal Artery, prox = 7.7 cm./sec. Peroneal Artery, mid = 7.1 cm./sec. Peroneal Artery,dist. = 6.5 cm./sec. Ant.Tibial Artery, prox = 10.6 cm./sec. Ant Tibial Artery, mid = 10.9 cm./sec. Ant. Tibial Artery, distal = 11.5 cm./sec. Procedure Exam performed in department. Preliminary report to Jesenia's voicemail. /US Art Duplex Unilat Lower Ext Interpretation Summary Left femoral occlussion. Ordering Physician: Kam Nava Referring Physician: Daron Benton MD Performed By: Tena Davidson RVT
--- NOTE | 2022-08-23 08:25 | AAVD_ITS ---
Reason For Study: Stricture of artery Aorta Measurements Aorta Doppler Measurements Proximal aorta measures2.30 x 2.35cm. in cross- Peak systolic flow velocities within the proximal sectional axis. aorta measure 68.7 cm/sec. Proximal aorta measures2.29cm. in longitudinal Peak systolic flow velocities within the mid aorta axis. measure 145.2 cm/sec. Mid aorta measures1.55 x 1.58cm. in cross- Peak systolic flow velocities within the distal sectional axis. aorta measure 148.4 cm/sec. Mid aorta measures1.59cm. in longitudinal axis. Distal aorta measures1.29 x 1.27cm. in cross- sectional axis. Distal aorta measures1.29cm. in longitudinal axis. Left Iliac Artery Left iliac artery measures 0.60 x 0.63 cm. in the cross-sectional axis. Left iliac artery measures 0.56 cm. in the longitudinal axis. Peak systolic velocity in the left iliac artery measures 121.6 cm/sec. Right Iliac Artery Right iliac artery measures 0.61 x 0.59 cm. in the cross-sectional axis. Right iliac artery measures 00.56 cm. in the longitudinal axis. Peak systolic velocity in the right iliac artery measures 216.3 cm/sec. Procedure Aorta IVC Iliac vasculature or bypass grafts [id number]. Exam performed in department. VL/Abd Aortic/IVC Duplex scan Interpretation Summary No significant aortoiliac stenosis. Ordering Physician: Kam Nava Referring Physician: Daron Benton MD Performed By: Tena Davidson RVT
== END | disposition home or self-care (01) ==
LOC: CVS 08:17
PROVIDERS: PCP Family Medicine; Visit Provider Surgery Vascular Surgery
DX: I77.1 Stricture of artery (principal); I74.09 Other arterial embolism and thrombosis of abdominal aorta; I70.213 Atherosclerosis of native arteries of extremities with intermittent claudication, bilateral legs; I70.1 Atherosclerosis of renal artery; I65.23 Occlusion and stenosis of bilateral carotid arteries; Z85.3 Personal history of malignant neoplasm of breast; E78.5 Hyperlipidemia, unspecified; R00.2 Palpitations; I25.10 Atherosclerotic heart disease of native coronary artery without angina pectoris; E07.9 Disorder of thyroid, unspecified; I10 Essential (primary) hypertension
CPT/HCPCS: 93922; 93926; 93978

== ENCOUNTER → 2022-09-26 | Outpatient (CLI) | payer MEDICARE, MEDICAID, SELFPAY ==
--- NOTE | 2022-09-26 12:48 | CDU_ITS ---
Reason For Study: Stenosis Rt. Velocities/BP Lt. Velocities/BP LT CCA Inflow, 182.8/22 cm/sec. Prox CCA 254.1/27.8 cm/sec. Prox Anas, 324.1/18 cm/sec. Mid CCA 254.1/27.8 cm/sec. Prox graft, 202.4/24.6 cm/sec. Dist CCA 131.1/19.7 cm/sec. Mid graft, 247.6/24.6 cm/sec Prox ICA 166.8/31 cm/sec. Dist graft, 254.1/14.9 cm/sec Mid ICA 123.4/17.1 cm/sec. Dist Anas, 465.6/16.7 cm/sec. Dist ICA 126/32.7 cm/sec. Prox CCA 116.6 cm/sec. Lt. ICA/CCA = 0.66. Mid CCA 131.5 cm/sec. Prox ECA 74.2/4.7 cm/sec. Dist CCA 224.1 cm/sec. Lt. Vert. 59.5/15.7 cm/sec. Prox ICA 297.8/19.2 cm/sec. Mid ICA 140.8/23.1 cm/sec. Dist ICA 118.3/26.1 cm/sec. Prox ECA 266.4/7.5 cm/sec. Right Extracranial There is heterogeneous, irregular atherosclerotic plaque noted in the right common carotid artery. Retrograde flow noted in the right CCA. There is heterogeneous, irregular atherosclerotic plaque noted in the right internal carotid artery. There is heterogeneous, irregular atherosclerotic plaque noted in the right external carotid artery. Abnormal waveform morphology noted in the right vertebral artery with bidirectional flow. Left Extracranial There is homogeneous, smooth atherosclerotic plaque noted in the left common carotid artery. There is heterogeneous, irregular atherosclerotic plaque noted in the left internal carotid artery. The atherosclerotic plaque causes acoustic shadowing. There is heterogeneous, irregular atherosclerotic plaque noted in the left external carotid artery. Antegrade flow is noted in the left vertebral artery. Procedure Carotid Duplex [id number]. This is a Carotid Duplex examination using B-mode, color flow and specral Doppler. Exam performed in department. VL/Carotid Duplex Ultrasound Interpretation Summary Moderate (50-69%) stenosis right extracranial internal carotid. Moderate (50-69 %) stenosis left extracranial internal carotid. Flow within the right verterbral artery is retro grade, consistent with a subclavian steal phenomenon. Flow within the left verterbral artery is a ntegrade. Carotid to carotid bypass patent with some anastamotic stenosis. Ordering Physician: Kam Nava Referring Physician: Daron Benton MD Performed By: Tena Davidson RVT
== END | disposition home or self-care (01) ==
PROVIDERS: PCP Family Medicine; Referring Provider Surgery Vascular Surgery; Visit Provider Surgery Vascular Surgery
DX: I65.23 Occlusion and stenosis of bilateral carotid arteries (principal); F17.200 Nicotine dependence, unspecified, uncomplicated
CPT/HCPCS: 93880

== ENCOUNTER → 2022-10-20 | Outpatient (CLI) | payer MEDICARE, MEDICAID, SELFPAY ==
[2022-10-20 18:03] LABS: Absolute Lymphocyte Count 1.75 X10^3/uL (0.83-4.51); Absolute Neutrophil Count 5.8 X10^3/uL (2.0-7.7); Basophil# 0.08 X10^3/uL; Eosinophil# 0.15 X10^3/uL; Eosinophils% 1.8 % (0-5); Hematocrit 48.2 % (37-47); Hemoglobin 15.6 g/dL (12.0-15.0); Lymphocyte # 1.75 X10^3/ul (0.83-4.51); Lymphocyte % 20.8 % (19-41); Mean Corp Hgb Conc 32.4 g/dL (32-36); Mean Corpuscular Hgb 28.4 pg (27.0-32.0); Mean Corpuscular Volume 87.8 fL (81-99); Mean Platelet Vol. 10.1 fl (6.2-12.0); Monocyte# 0.63 X10^3/uL; Monocyte% 7.5 % (0-10); NRBC Flagged by Analyzer 0 % (0-5); Neutrophil # 5.77 X10^3/uL (2.7-7.7); Neutrophil % 68.4 % (47-70); Platelet Count 197 K/mm3 (150-450); RBC Distribution Width CV 14.9 % (11.6-14.6); RBC Distribution Width SD 47.9 fl (35.1-43.9); Red Blood Count 5.49 M/mm3 (4.2-5.4); White Blood Count 8.4 K/mm3 (4.4-11.0)
[2022-10-20 18:34] LABS: Vitamin D,25 Hydroxy 59.8 ng/mL
[2022-10-20 18:47] LABS: Erythrocyte Sedimentation Rate 19 mm/hr (0-30)
[2022-10-20 18:59] LABS: ALB/GLOB Ratio 1.3 RATIO (0.9-2.4); AST(SGOT) 14 U/L (15-37); Alanine Aminotransfer ALT/SGPT 18 U/L (13-56); Albumin, Serum 3.9 g/dL (3.2-5.0); Alkaline Phosphatase 126 U/L (45-117); Anion Gap 5 (5-15); BUN 16 mg/dL (7-18); BUN/Creat Ratio 20.8 RATIO (10-20); CRP < 2.90 mg/L (0.0-3.0); Calcium,Total 9.2 mg/dL (8.5-10.1); Chloride 107 mmol/L (98-107); Creatinine, Serum 0.77 mg/dL (0.55-1.02); EST Glomerular Filtration Rate 79 mL/min (>60); Est Glom Filt Rate - Afr Amer 96 mL/min (>60); GGTP 22 U/L (5-55); Globulin 3.1 g/dL (2.2-4.2); Glucose 89 mg/dL (74-106); Lipase 88 U/L (73-393); Potassium 4.2 mmol/L (3.5-5.1); Rheumatoid Factor < 10.0 IU/mL (<15); Sodium Level 140 mmol/L (136-145); T4 Free Direct 1.41 ng/dL (0.76-1.46); Thyroid Stim Hormone (TSH) 1.66 uIU/mL (0.358-3.74)
[2022-10-23 17:07] LABS: Anti-Centromere B Ab <0.2 AI (0.0-0.9); Anti-Chromatin <0.2 AI (0.0-0.9); Anti-Jo <0.2 AI (0.0-0.9); Anti-Scleroderma-70 AB 0.2 AI (0.0-0.9); RNP Ab <0.2 AI (0.0-0.9); SJOGREN'S Anti-SS-A test < 0.2 AI (0.0-0.9); SJOGREN'S Anti-SS-B test < 0.2 AI (0.0-0.9); Smith Ab <0.2 AI (0.0-0.9)
[2022-10-23 20:42] LABS: Anti-dsDNA Ab <1 IU/mL (0-9)
== END | disposition home or self-care (01) ==
PROVIDERS: PCP Family Medicine; Referring Provider Family Medicine; Visit Provider Family Medicine
DX: I70.90 Unspecified atherosclerosis (principal); L40.50 Arthropathic psoriasis, unspecified; E03.9 Hypothyroidism, unspecified; R63.4 Abnormal weight loss; E55.9 Vitamin D deficiency, unspecified; K75.81 Nonalcoholic steatohepatitis (NASH)
CPT/HCPCS: 36415; 80053; 82306; 82977; 83690; 84165; 84439; 84443; 85025; 85652; 86140; 86225; 86235; 86431

== ENCOUNTER → 2022-11-21 | Outpatient (CLI) | payer MEDICARE, MEDICAID, SELFPAY ==
--- NOTE | 2022-11-21 12:43 | ECHOD_ITS ---
Reason For Study: Murmur Procedure This was a 2D Doppler, Color Flow transthoracic echocardiogram. Technically difficult apical images. Exam performed in department. Left Ventricle Normal LV size. Left ventricular systolic function is normal. The estimated ejection fraction is 65 %. No regional wall motion abnormalities noted. Right Ventricle Normal RV size. Normal systolic function. Atria The left atrium is mildly enlarged. Normal right atrium. Mitral Valve Bileaflet diffuse mitral valve thickening. Mild (1+) eccentric mitral valve insufficiency. Tricuspid Valve Normal tricuspid valve. Mild tricuspid valve insufficiency. Pulmonary artery systolic pressure is 40 mmHg. Mild pulmonary hypertension. Aortic Valve Trisinus/trileaflet aortic valve. Pulmonic Valve Normal pulmonic valve. Great Vessels Normal aortic root. The pulmonary artery is normal size. Normal inferior vena cava. Pericardium/Pleural No pericardial effusion. MMode/2D Measurements & Calculations LVIDd: 4.0 cm IVSd: 1.3 cm LA dimension: 3.7 cm LVIDs: 2.4 cm LVPWd: 1.1 cm FS: 40.5 % LAV(MOD-bp): 63.5 ml LVAd ap4: 19.4 cm2 SV(MOD-sp4): 25.3 ml LAV(MOD-bp) Indexed: 39.7 ml/m2 LVLd ap4: 7.0 cm LAV(MOD-sp2): 53.6 ml EDV(MOD-sp4): 42.3 ml LAV(MOD-sp4): 72.1 ml EDV(sp4-el): 45.6 ml LVAs ap4: 11.3 cm2 LVLs ap4: 6.0 cm ESV(MOD-sp4): 17.1 ml ESV(sp4-el): 18.1 ml EF(MOD-sp4): 59.7 % EF(sp4-el): 60.2 % SV(sp4-el): 27.4 ml LA A4 area: 24.6 cm2 RA A4 area: 10.7 cm2 Time Measurements MV dec time: 0.64 sec Doppler Measurements & Calculations MV E max sony: 140.2 cm/sec Lat Peak E' Sony: 5.4 cm/sec Med Peak E' Sony: 5.1 cm/sec MV A max sony: 125.8 cm/sec E/E' lat: 25.9 E/E' med: 27.4 MV E/A: 1.1 MV V2 max: 151.0 cm/sec MV P1/2t max sony: 143.9 cm/sec Ao V2 max: 158.5 cm/sec MV max P.1 mmHg MV P1/2t: 216.1 msec Ao max P.0 mmHg MV V2 mean: 78.6 cm/sec MV mean P.1 mmHg MV dec slope: 194.9 cm/sec2 MV V2 VTI: 78.6 cm MVA(P1/2t): 1.0 cm2 LV V1 max: 111.8 cm/sec MR max sony: 542.8 cm/sec PA V2 max: 80.6 cm/sec LV V1 max P.0 mmHg MR max P.8 mmHg TR max sony: 301.5 cm/sec TR max P.4 mmHg ECHO/Echo Complete Interpretation Summary Normal LV size. Left ventricular systolic function is normal. The estimated ejection fraction is 65 %. The left atrium is mildly enlarged. Pulmonary artery systolic pressure is 40 mmHg. Mild pulmonary hypertension. Ordering Physician: Betsey Lindquist Referring Physician: Daron Benton Performed By: Eleazar Dorsey RCS
== END | disposition home or self-care (01) ==
LOC: CVS 12:42
PROVIDERS: PCP Family Medicine; Visit Provider Physician Assistant Medical
DX: R01.1 Cardiac murmur, unspecified (principal); I25.10 Atherosclerotic heart disease of native coronary artery without angina pectoris; R06.09 Other forms of dyspnea
CPT/HCPCS: 93306

== ENCOUNTER 2022-11-24 18:44 | Emergency (ER) | payer MEDICARE, MEDICAID, SELFPAY ==
[2022-11-24 18:46] VITALS: BP 159/106; PULSE 61; RESP 18; TEMP 36.2; O2SAT 100; BMI 19.3
--- NOTE | 2022-11-24 21:57 | US_ITS ---
INDICATION: undefined -- SWELLING EXAMINATION: Ultrasound US Venous Duplex LE Unilat / Limited TECHNIQUE: Aly scale, pulse wave, and color flow Doppler imaging was performed of the lower extremity venous system. The bilateral greater saphenous, common femoral, femoral, and popliteal veins were interrogated. COMPARISON: None. FINDINGS: There is normal compression, augmentation, and signal throughout the visualized deep lower extremity veins. No mass or fluid collection. US/Venous Duplex Imag/Limited/Uni IMPRESSION: 1. No sonographic evidence of deep venous thrombosis/DVT in the LEFT lower extremity venous system. 2. No sonographic evidence of superficial thrombophlebitis. Electronically Signed: Elijah José MD at 22:47 EST ,
--- NOTE | 2022-11-24 23:07 | ED.VIS.LOWEX ---
HPI History of Present Illness Chief Complaint: Lower Extremity Injury Detail of Chief Complaint: Swollen painful left lower extremity Informant: patient Occured/Mechanism Comment: Atraumatic left leg pain with swelling for the past 3 days Onset/Context/Timing Onset: Days Context: Sudden Onset Timing: Continuous Quality of Pain: Aching Location: Calf and posterior distal left leg Current Severity: Mild Maximum Severity: Moderate Worsened by: Palpation Relieved by: Nothing Associated Symptoms Associated Symptoms: Negative for Parasthesia, Weakness or Loss of Funtion Narrative Narrative: Patient is a 67-year-old female who had recent vascular surgery by Dr. Nava. She presents because of atraumatic left leg pain and swelling for the past 3 days. She does endorse shortness of breath. She states she had shortness of prior to the surgery. She is also concerned because of swelling of her foot. She has been applying in an Jean-Claude wrap because of swelling of the knee joint. She denies discoloration of the leg. She denies any other symptoms. Patient states she did take a pain medicine and is not requesting any pain med sent at the time. Tetanus Immunization: 5-10 years Prior similar symptoms: No Recent Illness/Hospitalization: Yes [facility] Medical History Angina pectoris Bilateral carotid artery stenosis Chronic pain syndrome Essential (primary) hypertension Fatty liver GERD (gastroesophageal reflux disease) Goiter History of transient ischemic attack (TIA) HLD (hyperlipidemia) Multiple sclerosis Nonobstructive atherosclerosis of coronary artery Nonsustained paroxysmal supraventricular tachycardia Osteoarthritis Osteoporosis Peripheral vascular occlusive disease Psoriasis Psoriatic arthritis Thrombocytopenia Home Medications cholecalciferol (vitamin D3) 125 mcg (5,000 unit) tablet 5,000 unit PO DAILY supplement 12/16/13 [History Last Taken 07/16/19] gabapentin 800 mg tablet 800 mg PO TID MS 07/16/18 [History Last Taken 07/16/19] baclofen 20 mg tablet 20 mg PO Q8H 08/11/21 [History Last Taken 01/18/22] levothyroxine 50 mcg tablet 50 mcg PO DAILY 08/11/21 [History Last Taken 01/18/22] oxycodone 10 mg tablet 10 mg PO BID 08/11/21 [History Last Taken 01/18/22] clopidogrel 75 mg tablet 75 mg PO DAILY dose increased, pt is OUT of med, please fill #90 TABLETS 05/24/22 [Rx Last Taken Unknown] metoprolol succinate 25 mg tablet,extended release 24 hr 25 mg PO DAILY #90 tabs 10/09/22 [Rx Last Taken Unknown] Allergy/AdvReac Type Severity Reaction Status Date / Time colestipol [From Colestid] Allergy Mild unknown Verified 11/24/22 18:45 pregabalin [From Lyrica] Allergy Mild Hives Verified 11/24/22 18:45 amitriptyline Allergy Rash Verified 11/24/22 18:45 temazepam [From Restoril] AdvReac Mild Nausea/Vom/ Verified 11/24/22 18:45 Diarrhea Antihistamines - Alkylamine AdvReac Nausea/Vom/ Verified 11/24/22 18:45 Diarrhea Antihistamines - Ethanolamine AdvReac Nausea/Vom/ Verified 11/24/22 18:45 Diarrhea Antihistamines - AdvReac Nausea/Vom/ Verified 11/24/22 18:45 Ethylenediamine Diarrhea Antihistamines - Piperazine AdvReac Nausea/Vom/ Verified 11/24/22 18:45 Diarrhea Antihistamines - Piperidine AdvReac Nausea/Vom/ Verified 11/24/22 18:45 Diarrhea aspirin AdvReac I'M ON Verified 11/24/22 18:45 BLOOD THINNERS codeine AdvReac Nausea Verified 11/24/22 18:45 morphine AdvReac Nausea Verified 11/24/22 18:45 Sqyonyp-EUQ-YoB Reductase AdvReac Nausea Verified 11/24/22 18:45 Inhibitor [Fqdeovw-Guy-Nmq Reductase Inhibitor] STEROIDS BY MOUTH AdvReac Upset Uncoded 11/24/22 18:45 Stomach Family History Mother Cancer CAD (coronary artery disease) Brain tumor Grandfather CVA (cerebral vascular accident) Father CAD (coronary artery disease) Ruptured abdominal aortic aneurysm (AAA) Sister Brain aneurysm Surgical History Brain aneurysm Fracture of right lower leg H/O hemorrhoidectomy H/O: History of angioplasty of peripheral vessel History of angioplasty of peripheral vessel (07/11/19) History of section History of hemorrhoidectomy History of hysterectomy History of left breast biopsy History of left heart catheterization (01/25/15) History of left-sided carotid endarterectomy History of partial thyroidectomy (11/30/05) History of right-sided carotid endarterectomy S/P coil embolization of cerebral aneurysm S/P hysterectomy S/P insertion of iliac artery stent S/P thyroidectomy Stenosis of left subclavian artery Social History (Updated 11/24/22 @ 23:[address] Jeffy Willoughby MD) household members: none Smoking Status: Current every day smoker tobacco type: cigarettes alcohol intake: never caffeine: Yes Type: coffee and tea ROS ROS ED Constitutional Constitutional ED: Denies chills, fever(s), subjective or sweats Eyes Eyes: Denies blurry vision or change in vision ENT ENT ED: Denies rhinorrhea or sore throat Cardiovascular Cardiovascular: Denies chest pain, orthopnea, palpitations or paroxysmal nocturnal dyspnea Respiratory/Chest Respiratory/Chest: Reports dyspnea and dyspnea on exertion; Denies cough, orthopnea or paroxysmal nocturnal dyspnea Gastrointestinal Gastrointestinal: Denies abdominal pain, nausea or vomiting Genitourinary Genitourinary ED: Denies dysuria, hematuria or urinary frequency Musculoskeletal Musculoskeletal: Reports other Details: Per HPI narrative ; Denies arthralgias, back pain, myalgias or neck pain Integumentary Denies rash Neurologic Neurologic: Denies headache(s) or paresthesias Hematologic/Lymphatic Hematologic/Lymphatic: Denies easy bleeding or easy bruising EXAM Physical Exam Const Vital Signs: 11/24/22 18:46 Temperature 97.2 F L Temperature Source Temporal Pulse Rate 61 Respiratory Rate 18 Blood Pressure 159/106 H Blood Pressure Mean 123 Pulse Ox 100 Oxygen Delivery Method Room Air Positive well nourished and well developed General Appearance ED: well developed and NAD HEENT Reports moist mucous membranes HEENT Narrative: Ears are normal. Nares are patent patent. Mucosa is moist. normocephalic and atraumatic Eyes PERRL Eyes Narrative: Extract muscle are intact. Sclera is anicteric. Neck full ROM and supple Neck Narrative: There is no JVD. Resp normal respiratory effort and no retractions Cardio regular rate, regular rhythm, S1 normal heart sound and S2 normal heart sound Extremity Negative for normal to inspection Extremity Narrative: There is evidence of pedal edema which is pitting involving the foot. There is swelling of the calf. There is pain along the distribution deep venous system. There is no palpable cords. Patient does have palpable DP and PT pulse. Foot is warm and viable. Capillary refill is normal. The left knee is swollen. There is a small effusion. The patella is not ballotable. There is no palpable mass in the popliteal fossa suggest a Aviles's cyst. Neuro oriented x3, CN's II-XII intact bilaterally and moves all extremities Sensorium / Orientation: alert Psych mental status grossly normal Skin no wounds Lesions: no lesions Rashes: no rashes MDM MDM MDM Narrative Medical decision making narrative: Per Wells criteria for DVT patient is moderate to high risk and requires a venous duplex study. Venous duplex study was ordered. Blood work was ordered to assess renal function to determine if anticoagulant dosing needs to be adjusted and to determine what anticoagulant would be appropriate. Suspect the pedal edema is due to decreased mobility and Jean-Claude wrap. With a negative venous duplex study and reproducible pain on palpation we will treat for muscular pain. Patient's been instructed to elevate, ice and not to use the Jean-Claude wraps. Radiography Diagnostic Testing: Clinical Impression(s) from Imaging Studies Venous Duplex 11/24/22 21:57 IMPRESSION: 1. No sonographic evidence of deep venous thrombosis/DVT in the LEFT lower extremity venous system. 2. No sonographic evidence of superficial thrombophlebitis. Electronically Signed: Elijah José MD at 22:47 EST , Discharge Plan Triage Chief Complaint: Lower Extremity Injury ED Provider: Jeffy Willoughby Dx/Rx/DC Orders Clinical Impression: Pain of left calf, Essential (primary) hypertension, Peripheral vascular occlusive disease, Effusion of left knee joint, [place] (dyspnea on exertion), Edema of left foot Instructions: JESENIA MACHADO Knee Effusion Prescriptions: No Action gabapentin 800 mg tablet 800 mg PO TID baclofen 20 mg tablet 20 mg PO Q8H levothyroxine 50 mcg tablet 50 mcg PO DAILY Label Comments: take 1 tablet by mouth once daily oxycodone 10 mg tablet 10 mg PO BID Label Comments: take 1 tablet by mouth twice a day if needed for pain cholecalciferol (vitamin D3) 5,000 UNIT tablet 5,000 unit PO DAILY Label Comments: supplement clopidogrel 75 mg tablet 75 mg PO DAILY Qty: 90 3RF metoprolol succinate 25 mg tablet extended release 24 hr 25 mg PO DAILY Qty: 90 3RF Primary Care Provider: Daron Benton Referrals: Kam Nava MD [Med Staff - Active Staff] - Keep Angela appointment Daron Benton MD [Primary Care Provider] - 5-7 Days Activity Restrictions/Additional Instructions: 1. Do not place an Jean-Claude wrap on your foot this probably contributed to the swelling. 2. Apply ice to calf 6-10 times a day for the next 3 to 5 days Disposition Disposition: Home, Self Care
== END 2022-11-24 23:34 | disposition home or self-care (01) ==
PROVIDERS: Emergency Provider Emergency Medicine; PCP Family Medicine; Visit Provider Emergency Medicine
DX: R60.0 Localized edema (principal); G35 Multiple sclerosis; I73.9 Peripheral vascular disease, unspecified; M25.462 Effusion, left knee; M79.89 Other specified soft tissue disorders; M79.662 Pain in left lower leg; I25.10 Atherosclerotic heart disease of native coronary artery without angina pectoris; I10 Essential (primary) hypertension; R06.02 Shortness of breath; E78.5 Hyperlipidemia, unspecified; G89.4 Chronic pain syndrome; F17.210 Nicotine dependence, cigarettes, uncomplicated; Z79.02 Long term (current) use of antithrombotics/antiplatelets; Z79.890 Hormone replacement therapy; Z79.899 Other long term (current) drug therapy
CPT/HCPCS: 93971; 99282

== ENCOUNTER → 2023-02-01 | Outpatient (CLI) | payer MEDICARE, MEDICAID, SELFPAY ==
--- NOTE | 2023-02-01 09:48 | BD_ITS ---
STUDY: DUAL ENERGY X-RAY ABSORPTIOMETRY / DXA REASON FOR EXAM: Female, 67 years old. M85.89 TECHNIQUE: Bone Mineral Density (BMD) measurements of lumbar spine and bilateral hips were obtained. COMPARISON: Comparison is made with prior study dated May 28, 2013. FINDINGS: Lumbar Spine (L1-L4): g/cm2 (0.859) / T-score (-1.6) / Z-score (0.4) Findings are suggestive of osteopenia with a moderate fracture risk. Left Femur Total: g/cm2 (0.659) / T-score (-2.3) / Z-score (-0.9) Left Femoral Neck: g/cm2 (0.547) / T-score (-2.7) / Z-score (-1.0) Right Femur Total: g/cm2 (0.684) / T-score (-2.1) / Z-score (-0.7) Right Femoral Neck: g/cm2 (0.546) / T-score (-2.7) / Z-score (-1.0) The T-Scores on the most recent prior examination were: Lumbar Spine (L1-L4): There has been worsening of bone density since the previous examination. Left Femur Total: which represents a worsening of 14.2%. Right Femur Total: which represents a worsening of 11.3%. BD/Dexa Bone Density Study IMPRESSION: The patient is considered osteoporotic as outlined below according to World Luis E Organization (WHO) criteria with a high fracture risk. There has been worsening of bone density since the previous examination. Reference Information: The T-score is the number of standard deviations above or below the standard which is normal for young adults at their peak bone mineral density. The World Health Organization (WHO) interprets the T-scores as follows: Above -1 Normal bone density Between -1 and -2.5 Osteopenia Equal to / or below -2.5 Osteoporosis As a practical clinical guideline, osteopenia may be graded as follows: Mild -1 through -1.5 Moderate -1.6 through -2.0 Severe -2.1 through -2.4 The Z-score is the number of standard deviations above or below age-matched controls. A Z-score of less than -1.5 would be considered abnormal. References: 1. NIH Osteoporosis and Related Bone Diseases www osteo.org 2. International Society for Clinical Densitometry www iscd.org 3. National Osteoporosis Foundation www nof.org Electronically Signed: Jovon Freitas MD at 9:14 EDT ,
== END | disposition home or self-care (01) ==
PROVIDERS: PCP Family Medicine; Referring Provider Family Medicine; Visit Provider Family Medicine
DX: M85.89 Other specified disorders of bone density and structure, multiple sites (principal)
CPT/HCPCS: 77080

== ENCOUNTER 2023-03-16 12:25 | Emergency (ER) | payer MEDICARE, MEDICAID, SELFPAY ==
[2023-03-16 12:26] VITALS: BP 163/85; PULSE 58; RESP 14; TEMP 36.3; O2SAT 100; BMI 19.1
--- NOTE | 2023-03-16 12:52 | EKG12_ITS ---
Test Reason : SOB Blood Pressure : / mmHG Vent. Rate : 051 BPM Atrial Rate : 051 BPM P-R Int : 150 ms QRS Dur : 086 ms QT Int : 492 ms P-R-T Axes : 058 009 071 degrees QTc Int : 453 ms Sinus bradycardia Possible Left atrial enlargement Borderline ECG Confirmed by ALAN FOX, JOSELITO ([id number]), food editor SELAM BARRETO ([id number]) on 03/19/2023 11:29:58 AM Referred By: Confirmed By:CHACHO PHILLIPS MD
--- NOTE | 2023-03-16 13:26 | RAD_ITS ---
STUDY: X-RAY - LEFT FOOT CLINICAL: Female, 67 years old. Pain following injury. TECHNIQUE: view(s) of the foot. COMPARISON: None. FINDINGS: Normal talus, calcaneus, and tarsal bones. Normal visualized subtalar, talonavicular, calcaneocuboid, tarsal and tarsometatarsal articulations. Normal metatarsi. Normal metatarsophalangeal joint of the great toe. Normal tibial and fibular sesamoid bones. Normal interphalangeal joint of the great toe. Normal phalanges of the great toe. Normal second through fifth metatarsophalangeal joints. Normal interphalangeal joints and phalanges of the lesser toes. The soft tissue structures are unremarkable. RAD/Foot min 3 Views IMPRESSION: Normal x-ray examination of the foot. Electronically Signed: Jovon Freitas MD at 13:45 EDT ,
--- NOTE | 2023-03-16 13:26 | RAD_ITS ---
STUDY: X-RAY CHEST REASON FOR EXAM: Female, 67 years old. Pain TECHNIQUE: PA and lateral views of the chest. COMPARISON: Comparison is made with prior examination dated February 20, 2022. FINDINGS: Hyperinflation. Scattered calcified granulomas. There is no demonstrated pleural abnormality. Normal size heart. Normal mediastinum and david. Normal visualized pulmonary arteries. Normal visualized aortic arch and descending thoracic aorta. There is a mild degree of dextroscoliosis of the thoracic spine. Normal visualized ribs, clavicles, and shoulders. There is no demonstrated abnormality of the visualized soft tissue structures of the upper abdomen. RAD/Chest PA and Lateral IMPRESSION: Hyperinflation. The lungs are clear. Electronically Signed: Jovon Freitas MD at 13:44 EDT ,
--- NOTE | 2023-03-16 13:26 | RAD_ITS ---
STUDY: X-RAY - THORACIC SPINE REASON FOR EXAM: Female, 67 years old. Left upper back pain. TECHNIQUE: 3 view(s) of the thoracic spine were obtained. COMPARISON: None. FINDINGS: Normal kyphosis of the thoracic spine. Dextroscoliosis. There is demineralization of the thoracic spine with endplate spondylosis. There is multilevel disc space narrowing of the thoracic spine. The soft tissue structures are unremarkable. RAD/Thoracic Spine 3 Views IMPRESSION: Multilevel degenerative changes. No vertebral fracture is seen. Dextroscoliosis. Electronically Signed: Jovon Freitas MD at 13:47 EDT ,
[2023-03-16] MEDS: Ondansetron ODT 4 MG Tablet PO (13:38)
[2023-03-16] MEDS: HYDROmorphone 0.5 MG/0.5 ML SYRINGE IM (13:38)
--- NOTE | 2023-03-16 15:11 | EDS_ITS ---
HPI History of Present Illness Chief Complaint: Other, Pain/Inj Informant: patient Narrative Narrative: Patient is a 67-year-old female with extensive medical history including osteoporosis, osteoarthritis, psoriatic arthritis, multiple sclerosis and bilateral carotid endarterectomies presenting with worsening back pain as well as bruising to her left foot. Patient states she had worsening left thoracic back pain for the past week or so. She had a hard time sleeping now because of the pain. She denies any trauma or injury. She states sometimes she feels like she cannot get a deep enough breath with it. She also states when she was walking this morning she felt a snap in her left foot and noticed that it was bruised today. She thinks she might have broken her toe. Patient is on oxycodone 10 mg twice daily and previously been in pain management and currently her medications prescribed by her PCP. She is also on baclofen and gabapentin for her pain. She has previously had a baclofen/pain pump but does not currently have 1. Patient denies any chest pain. No other complaints at this time [facility] Medical History Angina pectoris Bilateral carotid artery stenosis Chronic pain syndrome Essential (primary) hypertension Fatty liver GERD (gastroesophageal reflux disease) Goiter History of transient ischemic attack (TIA) HLD (hyperlipidemia) Multiple sclerosis Nonobstructive atherosclerosis of coronary artery Nonsustained paroxysmal supraventricular tachycardia Osteoarthritis Osteoporosis Peripheral vascular occlusive disease Psoriasis Psoriatic arthritis Thrombocytopenia Home Medications cholecalciferol (vitamin D3) 125 mcg (5,000 unit) tablet 5,000 unit PO DAILY supplement 12/16/13 [History Last Taken 07/16/19] gabapentin 800 mg tablet 800 mg PO TID MS 07/16/18 [History Last Taken 07/16/19] baclofen 20 mg tablet 20 mg PO Q8H 08/11/21 [History Last Taken 01/18/22] levothyroxine 50 mcg tablet 50 mcg PO DAILY 08/11/21 [History Last Taken 01/18/22] oxycodone 10 mg tablet 10 mg PO BID 08/11/21 [History Last Taken 01/18/22] clopidogrel 75 mg tablet 75 mg PO DAILY dose increased, pt is OUT of med, please fill #90 TABLETS 05/24/22 [Rx Last Taken Unknown] metoprolol succinate 25 mg tablet,extended release 24 hr 25 mg PO DAILY #90 tabs 10/09/22 [Rx Last Taken Unknown] Supartz FX 10 mg/mL intra-articular syringe (sodium hyaluronate (viscosup)) 25 mg (2.5 mL) intra-articular ONCE #2.5 mL 12/27/22 [Clinic Last Taken Unknown] Allergy/AdvReac Type Severity Reaction Status Date / Time colestipol [From Colestid] Allergy Mild unknown Verified 03/16/23 12:28 pregabalin [From Lyrica] Allergy Mild Hives Verified 03/16/23 12:28 amitriptyline Allergy Rash Verified 03/16/23 12:28 temazepam [From Restoril] AdvReac Mild Nausea/Vom/ Verified 03/16/23 12:28 Diarrhea Antihistamines - Alkylamine AdvReac Nausea/Vom/ Verified 03/16/23 12:28 Diarrhea Antihistamines - Ethanolamine AdvReac Nausea/Vom/ Verified 03/16/23 12:28 Diarrhea Antihistamines - AdvReac Nausea/Vom/ Verified 03/16/23 12:28 Ethylenediamine Diarrhea Antihistamines - Piperazine AdvReac Nausea/Vom/ Verified 03/16/23 12:28 Diarrhea Antihistamines - Piperidine AdvReac Nausea/Vom/ Verified 03/16/23 12:28 Diarrhea aspirin AdvReac I'M ON Verified 03/16/23 12:28 BLOOD THINNERS codeine AdvReac Nausea Verified 03/16/23 12:28 Corticosteroids AdvReac Upset Verified 03/16/23 12:28 (Glucocorticoids) Stomach morphine AdvReac Nausea Verified 03/16/23 12:28 Odtsofo-NHZ-WaO Reductase AdvReac Nausea Verified 03/16/23 12:28 Inhibitor [Agjniph-Mti-Srr Reductase Inhibitor] Family History Mother Cancer CAD (coronary artery disease) Brain tumor Grandfather CVA (cerebral vascular accident) Father CAD (coronary artery disease) Ruptured abdominal aortic aneurysm (AAA) Sister Brain aneurysm Surgical History Brain aneurysm Fracture of right lower leg H/O hemorrhoidectomy H/O: History of angioplasty of peripheral vessel History of angioplasty of peripheral vessel (07/11/19) History of section History of hemorrhoidectomy History of hysterectomy History of left breast biopsy History of left heart catheterization (01/25/15) History of left-sided carotid endarterectomy History of partial thyroidectomy (11/30/05) History of right-sided carotid endarterectomy S/P coil embolization of cerebral aneurysm S/P hysterectomy S/P insertion of iliac artery stent S/P thyroidectomy Stenosis of left subclavian artery Social History household members: none Smoking Status: Current every day smoker tobacco type: cigarettes alcohol intake: never caffeine: Yes Type: coffee and tea ROS ROS ED Constitutional Constitutional ED: Denies chills or fever(s) Eyes Eyes: Denies change in vision Cardiovascular Cardiovascular: Denies chest pain or palpitations Respiratory/Chest Respiratory/Chest: Denies cough, dyspnea or dyspnea on exertion Gastrointestinal Gastrointestinal: Denies abdominal pain, nausea or vomiting Musculoskeletal Musculoskeletal: Reports arthralgias, back pain and myalgias; Denies neck pain Integumentary Denies rash Neurologic Neurologic: Denies headache(s) or weakness Hematologic/Lymphatic Hematologic/Lymphatic: Denies easy bleeding or easy bruising EXAM Physical Exam Const Vital Signs: 03/16/23 12:26 Temperature 97.3 F L Temperature Source Temporal Pulse Rate 58 L Respiratory Rate 14 Blood Pressure 163/85 H Blood Pressure Mean 111 Pulse Ox 100 Oxygen Delivery Method Room Air Positive well nourished Constitutional Narrative: frail General Appearance ED: NAD HEENT Reports moist mucous membranes Eyes PERRL and EOMs intact bilaterally Neck supple Chest Wall inspection of chest normal and palpation of chest normal Resp normal respiratory effort and clear to auscultation bilaterally Cardio regular rate, regular rhythm and no murmurs GI normal to inspection, nondistended, normoactive bowel sounds and non-tender Back/Spine Back/Spine Narrative: left trapezius tender to palpation. Cervical Spine: Negative for cervical spine tenderness Thoracic Spine / Upper Back: Negative for thoracic spinal tenderness Lumbar Spine / Lower Back: Negative for lumbar spinal tenderness Extremity Extremity Narrative: No obvious deformity. Patient has ecchymosis with tenderness palpation of the left foot most notable over the first metatarsal. Neuro oriented x3 Neuro Narrative: no focal deficits appreciated Sensorium / Orientation: alert Motor Exam: general weakness Psych mental status grossly normal Skin Skin Narrative: Ecchymosis to the left foot as described above. No other rash or ecchymosis appreciated. Scattered plaque-like erythematous rash consistent with patient's history of psoriatic arthritis. MDM MDM MDM Narrative Medical decision making narrative: Patient is evaluated for back pain. She has a lot of pain issues as well as degenerative disc disease and osteoarthritis. Addition she has psoriatic arthritis. Her pain seems really muscle skeletal peers been going on for a week. Her vital signs are normal however she is mildly bradycardic in the ER. Prior vital signs reviewed and this appears to be chronic for the patient. Patient not have midline tenderness. Chest x-ray, thoracic spine x-ray and foot x-ray are obtained due to pain without any trauma. No acute fracture on interpretation by myself as well as radiology. She does have multilevel degenerative changes to her thoracic spine. She has hyperinflation of the lungs . There is no pneumothorax. EKG obtained which does not show any ischemic process. I think this is more of a pain control issue. Patient is given a dose of IM Dilaudid and has improvement until she was startled awake when nursing staff had to come in and get the CODE BL[employer] cart. She then had worsening pain again. She is given her home oxycodone which she did not take this morning and on repeat evaluations has seen more comfortable but is given 1 more dose of IM Dilaudid. She is comfortable with going home. I did discuss admission for pain control however she does not feel that is needed at this time. I do not think his back pain is referred vascular pain or cardiac pain. Is given return precautions. Patient verbalizes agreement understand this plan. I did attempt to contact her PCP who manages her pain medications but was unsuccessful. Radiography Diagnostic Testing: Clinical Impression(s) from Imaging Studies Chest X-Ray 03/16/23 13:26 IMPRESSION: Hyperinflation. The lungs are clear. Electronically Signed: Jovon Freitas MD at 13:44 EDT , Foot X-Ray 03/16/23 13:26 IMPRESSION: Normal x-ray examination of the foot. Electronically Signed: Jovon Freitas MD at 13:45 EDT , Thoracic Spine X-Ray 03/16/23 13:26 IMPRESSION: Multilevel degenerative changes. No vertebral fracture is seen. Dextroscoliosis. Electronically Signed: Jovon Freitas MD at 13:47 EDT , Rhythm Strip Rhythm Strip: Sinus Rhythm Rate: 51 Ectopy: None EKG Initial EKG: Attestation: I personally reviewed and interpreted this EKG as follows: Interpretation: Sinus Bradycardia Comments: Sinus bradycardia rate of 51 bpm Normal axis Normal intervals Normal ST segments Discharge Plan Triage Chief Complaint: Other, Pain/Inj ED Provider: Gabriella Simpson Dx/Rx/DC Orders Clinical Impression: Thoracic back pain, Acute pain of left foot Instructions: ED Back and Neck Pain, General, ED Pain Management: Chronic Prescriptions: No Action gabapentin 800 mg tablet 800 mg PO TID baclofen 20 mg tablet 20 mg PO Q8H levothyroxine 50 mcg tablet 50 mcg PO DAILY Label Comments: take 1 tablet by mouth once daily oxycodone 10 mg tablet 10 mg PO BID Label Comments: take 1 tablet by mouth twice a day if needed for pain sodium hyaluronate (viscosup) [Supartz FX] 10 mg/mL syringe 25 mg intra-articular ONCE Qty: 2.5 0RF cholecalciferol (vitamin D3) 5,000 UNIT tablet 5,000 unit PO DAILY Label Comments: supplement clopidogrel 75 mg tablet 75 mg PO DAILY Qty: 90 3RF metoprolol succinate 25 mg tablet extended release 24 hr 25 mg PO DAILY Qty: 90 3RF Primary Care Provider: Daron Benton Referrals: Daron Benton MD [Primary Care Provider] - Activity Restrictions/Additional Instructions: Please follow-up with your primary care doctor. If your pain gets worse you do not feel you can effectively take care of yourself at home please return to the emergency room. Disposition Disposition: Home, Self Care Discharge Date/Time: 03/16/23 16:21
[2023-03-16] MEDS: Lidocaine 5% Patch 1 PATCH TOPICAL (15:15)
[2023-03-16] MEDS: oxyCODONE 5 MG Tablet 10 MG PO (15:16)
[2023-03-16] MEDS: HYDROmorphone 0.5 MG/0.5 ML SYRINGE IV (16:11)
== END 2023-03-16 16:21 | disposition home or self-care (01) ==
PROVIDERS: Emergency Provider Emergency Medicine; PCP Family Medicine; Visit Provider Emergency Medicine
DX: M54.6 Pain in thoracic spine (principal); G35 Multiple sclerosis; L40.50 Arthropathic psoriasis, unspecified; I25.10 Atherosclerotic heart disease of native coronary artery without angina pectoris; G89.4 Chronic pain syndrome; E78.5 Hyperlipidemia, unspecified; I10 Essential (primary) hypertension; S90.32XA Contusion of left foot, initial encounter; X58.XXXA Exposure to other specified factors, initial encounter; K21.9 Gastro-esophageal reflux disease without esophagitis; M81.0 Age-related osteoporosis without current pathological fracture; F17.210 Nicotine dependence, cigarettes, uncomplicated; Z79.02 Long term (current) use of antithrombotics/antiplatelets; Z79.890 Hormone replacement therapy; Z79.899 Other long term (current) drug therapy
CPT/HCPCS: 71046; 72072; 73630; 93005; 96372; 96374; 99282

== ENCOUNTER → 2023-03-20 | Outpatient (CLI) | payer MEDICARE, MEDICAID, SELFPAY ==
--- NOTE | 2023-03-20 09:40 | RAD_ITS ---
INDICATION: Left lateral/side back pain, T8-9 level EXAMINATION/TECHNIQUE: X-RAY - XR Ribs Unilateral W/ PA Chest Min 3 Views. 5 images. COMPARISON: March 16, 2023 chest x-ray. FINDINGS: SOFT TISSUES: No soft tissue swelling or gas. Epidural catheter in place, unchanged. BONES: Thoracic spine dextrocurvature and lumbar spine with levocurvature. No displaced rib fracture. No sclerotic or destructive changes observed. LUNGS: Mild hyperinflation. No focal consolidation or pleural effusion. No pneumothorax. MEDIASTINUM: Normal size of the cardiac silhouette. Aorta and pulmonary vascularity are unremarkable. Stable appearance of the david. RAD/Ribs Uni Min 3V w/PA Chest IMPRESSION: No evidence of displaced rib fracture. Epidural catheter in place. Scoliosis. Electronically Signed: Justice Ponce MD at 18:12 EDT ,
== END | disposition home or self-care (01) ==
LOC: MTRAD 09:39
PROVIDERS: PCP Family Medicine; Referring Provider Family Medicine; Visit Provider Family Medicine
DX: M54.6 Pain in thoracic spine (principal)
CPT/HCPCS: 71101

== ENCOUNTER 2023-03-31 12:32 | Emergency (ER) | payer MEDICARE, MEDICAID, SELFPAY ==
[2023-03-31 12:33] VITALS: BP 188/105; PULSE 67; RESP 16; TEMP 36.1; O2SAT 98
[2023-03-31 12:40] VITALS: BMI 19.5
--- NOTE | 2023-03-31 13:31 | ED.VIS.FEGU ---
HPI HPI - Female History of Present Illness Chief Complaint: Complaint Informant: patient Narrative Narrative: Increasing dysuria and frequency urgency since 2 AM this morning. No fevers. Chronic sciatica pain. No history of UTIs. No allergies to antibiotics per patient. Prior similar symptoms: No PFSH PFSH Medical History Angina pectoris Bilateral carotid artery stenosis Chronic pain syndrome Essential (primary) hypertension Fatty liver GERD (gastroesophageal reflux disease) Goiter History of transient ischemic attack (TIA) HLD (hyperlipidemia) Multiple sclerosis Nonobstructive atherosclerosis of coronary artery Nonsustained paroxysmal supraventricular tachycardia Osteoarthritis Osteoporosis Peripheral vascular occlusive disease Psoriasis Psoriatic arthritis Thrombocytopenia Home Medications cholecalciferol (vitamin D3) 125 mcg (5,000 unit) tablet 5,000 unit PO DAILY supplement 12/16/13 [History Last Taken 07/16/19] gabapentin 800 mg tablet 800 mg PO TID MS 07/16/18 [History Last Taken 07/16/19] baclofen 20 mg tablet 20 mg PO Q8H 08/11/21 [History Last Taken 01/18/22] levothyroxine 50 mcg tablet 50 mcg PO DAILY 08/11/21 [History Last Taken 01/18/22] oxycodone 10 mg tablet 10 mg PO BID 08/11/21 [History Last Taken 01/18/22] clopidogrel 75 mg tablet 75 mg PO DAILY dose increased, pt is OUT of med, please fill #90 TABLETS 05/24/22 [Rx Last Taken Unknown] metoprolol succinate 25 mg tablet,extended release 24 hr 25 mg PO DAILY #90 tabs 10/09/22 [Rx Last Taken Unknown] Supartz FX 10 mg/mL intra-articular syringe (sodium hyaluronate (viscosup)) 25 mg (2.5 mL) intra-articular ONCE #2.5 mL 12/27/22 [Clinic Last Taken Unknown] cephalexin 500 mg capsule 500 mg PO Q12 #10 CAPSULES 03/31/23 [Rx Last Taken Unknown] phenazopyridine 200 mg tablet (Pyridium) 200 mg PO TID #6 tabs 03/31/23 [Rx Last Taken Unknown] Allergy/AdvReac Type Severity Reaction Status Date / Time colestipol [From Colestid] Allergy Mild unknown Verified 03/31/23 12:33 pregabalin [From Lyrica] Allergy Mild Hives Verified 03/31/23 12:33 amitriptyline Allergy Rash Verified 03/31/23 12:33 temazepam [From Restoril] AdvReac Mild Nausea/Vom/ Verified 03/31/23 12:33 Diarrhea Antihistamines - Alkylamine AdvReac Nausea/Vom/ Verified 03/31/23 12:33 Diarrhea Antihistamines - Ethanolamine AdvReac Nausea/Vom/ Verified 03/31/23 12:33 Diarrhea Antihistamines - AdvReac Nausea/Vom/ Verified 03/31/23 12:33 Ethylenediamine Diarrhea Antihistamines - Piperazine AdvReac Nausea/Vom/ Verified 03/31/23 12:33 Diarrhea Antihistamines - Piperidine AdvReac Nausea/Vom/ Verified 03/31/23 12:33 Diarrhea aspirin AdvReac I'M ON Verified 03/31/23 12:33 BLOOD THINNERS codeine AdvReac Nausea Verified 03/31/23 12:33 Corticosteroids AdvReac Upset Verified 03/31/23 12:33 (Glucocorticoids) Stomach morphine AdvReac Nausea Verified 03/31/23 12:33 Eovthow-SEN-XzO Reductase AdvReac Nausea Verified 03/31/23 12:33 Inhibitor [Mppypee-Dvy-Jac Reductase Inhibitor] Family History Mother Cancer CAD (coronary artery disease) Brain tumor Grandfather CVA (cerebral vascular accident) Father CAD (coronary artery disease) Ruptured abdominal aortic aneurysm (AAA) Sister Brain aneurysm Surgical History Brain aneurysm Fracture of right lower leg H/O hemorrhoidectomy H/O: History of angioplasty of peripheral vessel History of angioplasty of peripheral vessel (07/11/19) History of section History of hemorrhoidectomy History of hysterectomy History of left breast biopsy History of left heart catheterization (01/25/15) History of left-sided carotid endarterectomy History of partial thyroidectomy (11/30/05) History of right-sided carotid endarterectomy S/P coil embolization of cerebral aneurysm S/P hysterectomy S/P insertion of iliac artery stent S/P thyroidectomy Stenosis of left subclavian artery Social History household members: none Smoking Status: Current every day smoker tobacco type: cigarettes alcohol intake: never caffeine: Yes Type: coffee and tea ROS ROS ED Constitutional Constitutional ED: Denies chills, fever(s) or sweats Eyes Eyes: Denies change in vision ENT ENT ED: Denies dysphagia or sore throat Cardiovascular Cardiovascular: Denies chest pain, leg edema, palpitations or racing heartbeat Respiratory/Chest Respiratory/Chest: Denies cough, dyspnea or dyspnea on exertion Gastrointestinal Gastrointestinal: Denies abdominal pain, diarrhea, nausea or vomiting Genitourinary Genitourinary ED: Reports dysuria and urinary frequency; Denies hematuria Musculoskeletal Musculoskeletal: Denies back pain, extremity pain or neck pain Integumentary Denies rash or wounds Neurologic Neurologic: Denies headache(s), paresthesias or weakness EXAM Physical Exam Const Vital Signs: 03/31/23 12:33 03/31/23 15:10 Temperature 96.9 F L Temperature Source Temporal Pulse Rate 67 45 L Respiratory Rate 16 16 Blood Pressure 188/105 H 198/82 H Blood Pressure Mean 132 Pulse Ox 98 100 Oxygen Delivery Method Room Air Positive well nourished and well developed General Appearance ED: well developed and NAD HEENT Reports moist mucous membranes normocephalic and atraumatic Eyes PERRL, EOMs intact bilaterally and conjunctivae normal General Eye ED: Yes normal appearance of both eyes Neck no lymphadenopathy and supple General: Negative for tenderness Chest Wall Chest: Negative for tenderness Resp normal respiratory effort and normal air movement Effort and Inspection: symmetric chest movement; Negative for respiratory distress Cardio regular rate, regular rhythm and no murmurs Peripheral Pulses: pulses 2+ throughout GI normal to inspection, nondistended, normoactive bowel sounds and non-tender GI Narrative: Negative Littlejohn's or McBurney's tenderness no suprapubic tenderness. Palpation: Negative for guarding or rebound tenderness present Back/Spine no CVA tenderness and no thoracic nor lumbar tenderness Extremity normal to inspection General Extremety ED: Negative for edema or tenderness General Extremity: Negative for edema Neuro oriented x3 and no sensory deficits noted Sensorium / Orientation: awake and alert Skin no rashes or lesions noted and no wounds MDM MDM MDM Narrative Medical decision making narrative: Interventions / MDM: Differential diagnosis: UTI, cystitis Diagnosis considered but do not suspect: N/A My EKG interpretation: N/A Imaging independently reviewed and interpreted by myself: N/A External documents reviewed: N/A Test considered but not ordered:N/A ED course: Nontoxic vital stable increasing dysuria and frequency since 2 AM. Urine was obtained only noting 1+ bacteria. Urine culture sent. With her being symptomatic we will start antibiotics and Pyridium for symptom control. Cultures pending. Return precaution discussed with the patient. All questions were answered. Re-evaluation: stable Disposition discussed with patient/family/significant other: Patient Case discussed with consulting clinician: N/A Lab Data Attestation: I reviewed the patient's lab results. Labs: Laboratory Results - last 24 hr 03/31/23 14:05 Urine Color Yellow Urine Clarity Clear Urine pH 6.0 Ur Specific Gaines 1.010 Urine Protein Negative Urine Glucose (UA) Normal Urine Ketones Negative Urine Occult Blood Negative Urine Nitrite Negative Urine Bilirubin Negative Urine Urobilinogen Normal Ur Leukocyte Esterase Negative Urine RBC 0 SEEN Urine WBC 0 SEEN Ur Squamous Epith Cells 5-10 SEEN Urine Bacteria 1+ Urine Mucus 0 SEEN Discharge Plan Triage Chief Complaint: Complaint ED Provider: Jaya Campbell Dx/Rx/DC Orders Clinical Impression: Cystitis, Dysuria Instructions: Dysuria, ED Cystitis Female Adult Prescriptions: New phenazopyridine [Pyridium] 200 mg tablet 200 mg PO TID Qty: 6 0RF cephalexin [cephalexin] 500 mg capsule 500 mg PO Q12 Qty: 10 0RF No Action gabapentin 800 mg tablet 800 mg PO TID baclofen 20 mg tablet 20 mg PO Q8H levothyroxine 50 mcg tablet 50 mcg PO DAILY Label Comments: take 1 tablet by mouth once daily oxycodone 10 mg tablet 10 mg PO BID Label Comments: take 1 tablet by mouth twice a day if needed for pain sodium hyaluronate (viscosup) [Supartz FX] 10 mg/mL syringe 25 mg intra-articular ONCE Qty: 2.5 0RF cholecalciferol (vitamin D3) 5,000 UNIT tablet 5,000 unit PO DAILY Label Comments: supplement clopidogrel 75 mg tablet 75 mg PO DAILY Qty: 90 3RF metoprolol succinate 25 mg tablet extended release 24 hr 25 mg PO DAILY Qty: 90 3RF Primary Care Provider: Daron Benton Referrals: Daron Benton MD [Primary Care Provider] - 1 Week Disposition Disposition: Home, Self Care Discharge Date/Time: 03/31/23 15:13
[2023-03-31 14:16] LABS: Mucous, Urine 0 SEEN /hpf (<or=2+); Red Blood Cells-Urine 0 SEEN /hpf (0-5); White Blood Cells 0 SEEN /hpf (0-5)
[2023-03-31 14:20] LABS: Color, Urine Yellow (Yellow); Glucose, Dipstick Normal (Normal); Ketone-Dipstick Negative (Negative); Leukocyte Esterase-Dipstick Negative /ul (Negative); Nitrite-Dipstick Negative (Negative); Occult Blood-Urine Negative /ul (Negative); Protein-Dipstick Negative (Negative); Urine Bilirubin Dipstick Negative (Negative); Urine Clarity Clear (Clear); Urine Urobilinogen Normal (Normal)
[2023-03-31 14:42] LABS: Bacteria 1+ /hpf (None Seen); Squamous Epithelial Cells - UA 5-10 SEEN /hpf (5-10)
[2023-03-31] MEDS: Phenazopyridine 95 MG Tablet 190 MG PO (15:06)
[2023-03-31] MEDS: Cephalexin 250 MG Capsule 500 MG PO (15:06)
[2023-03-31 15:10] VITALS: BP 198/82; PULSE 45; RESP 16; O2SAT 100
== END 2023-03-31 15:13 | disposition home or self-care (01) ==
PROVIDERS: Emergency Provider Emergency Medicine; PCP Family Medicine; Visit Provider Emergency Medicine
DX: N30.90 Cystitis, unspecified without hematuria (principal); E78.5 Hyperlipidemia, unspecified; I25.10 Atherosclerotic heart disease of native coronary artery without angina pectoris; I10 Essential (primary) hypertension; M54.30 Sciatica, unspecified side; G89.4 Chronic pain syndrome; Z79.02 Long term (current) use of antithrombotics/antiplatelets; Z79.890 Hormone replacement therapy; Z79.899 Other long term (current) drug therapy; F17.210 Nicotine dependence, cigarettes, uncomplicated
CPT/HCPCS: 81001; 87086; 87088; 99283

== ENCOUNTER 2023-04-08 09:18 | Emergency (ER) | payer MEDICARE, MEDICAID, SELFPAY ==
[2023-04-08 09:19] VITALS: BP 216/90; PULSE 18; RESP 14; TEMP 36.4; O2SAT 97; BMI 19.1
[2023-04-08 09:34] VITALS: PULSE 46
--- NOTE | 2023-04-08 09:34 | RAD_ITS ---
EXAM: XR CHEST, 2 VIEWS CLINICAL INDICATION: Thoracic back pain. TECHNIQUE: Frontal and lateral views of the chest. COMPARISON: 03/20/2023. FINDINGS: LUNGS AND PLEURAL SPACES: Mild pulmonary hyperinflation. No pneumothorax. No effusion. No suspicious infiltrates. HEART: Unremarkable. Cardiac silhouette not enlarged. MEDIASTINUM: Central airways and mediastinal contour are unremarkable. BONES/JOINTS: Mild dextroscoliosis of the thoracic spine. SOFT TISSUES: Unremarkable. RAD/Chest PA and Lateral IMPRESSION: 1. No acute findings in the chest. 2. No interval change when compared to 03/20/2023. Electronically Signed: Nuno Chamorro MD at 10:51 EDT ,
--- NOTE | 2023-04-08 09:36 | ED.VIS.BACK ---
HPI History of Present Illness Chief Complaint: Back Informant: patient Narrative Narrative: Patient presents by EMS for multiple symptoms. She states the reason she came in was because she was up all night with pain in her left thoracic back that is been there for months, using heat and ice pads, and then about 3 hours ago she gradually started having pain across her back, she states it is in the same area, but all the way across to the right side and it is a different pain that she has not had for months. In addition for the past 2 days she has had tingling on both sides of her face simultaneously, below the eyes and not including the forehead or the periorbital areas, and some numbness and tingling in her left arm. She was at [place] recently seen her neurologist and her blood pressure was really high she was sent to the ER, because of this discomfort in her back that she has had for months they did a cardiac work-up, she right the EKG from there I reviewed it it is normal, and she was discharged home from the ER with a diagnosis of nonspecific chest discomfort, suggesting that her enzymes were negative and the rest of her work-up was unremarkable. She states she was seeing her neurologist because she has a history of multiple sclerosis. She also has cervical spinal stenosis and has seen spine surgery Dr. Jasso here relatively recently, today is Sunday and she states this week she has scheduled a bone scan screening her for cancer because it runs in her family and she is having bone pain in her ribs, as well as an MRI of her back due to lots of these chronic symptoms. She denies any palpitations, dyspnea, unexplained sweating, vomiting this morning, or any chest discomfort. Has a history of PAD and carotid disease, she has stents there but no history of heart disease but it runs in her family at young ages and she is concerned that this could be heart related primarily. [facility] Medical History Angina pectoris Bilateral carotid artery stenosis Chronic pain syndrome Essential (primary) hypertension Fatty liver GERD (gastroesophageal reflux disease) Goiter History of transient ischemic attack (TIA) HLD (hyperlipidemia) Multiple sclerosis Nonobstructive atherosclerosis of coronary artery Nonsustained paroxysmal supraventricular tachycardia Osteoarthritis Osteoporosis Peripheral vascular occlusive disease Psoriasis Psoriatic arthritis Thrombocytopenia Home Medications cholecalciferol (vitamin D3) 125 mcg (5,000 unit) tablet 5,000 unit PO DAILY supplement 12/16/13 [History Last Taken 07/16/19] gabapentin 800 mg tablet 800 mg PO TID MS 07/16/18 [History Last Taken 07/16/19] baclofen 20 mg tablet 20 mg PO Q8H 08/11/21 [History Last Taken 01/18/22] levothyroxine 50 mcg tablet 50 mcg PO DAILY 08/11/21 [History Last Taken 01/18/22] oxycodone 10 mg tablet 10 mg PO BID 08/11/21 [History Last Taken 01/18/22] clopidogrel 75 mg tablet 75 mg PO DAILY dose increased, pt is OUT of med, please fill #90 TABLETS 05/24/22 [Rx Last Taken Unknown] metoprolol succinate 25 mg tablet,extended release 24 hr 25 mg PO DAILY #90 tabs 10/09/22 [Rx Last Taken Unknown] Supartz FX 10 mg/mL intra-articular syringe (sodium hyaluronate (viscosup)) 25 mg (2.5 mL) intra-articular ONCE #2.5 mL 12/27/22 [Clinic Last Taken Unknown] cephalexin 500 mg capsule 500 mg PO Q12 #10 CAPSULES 03/31/23 [Rx Last Taken Unknown] phenazopyridine 200 mg tablet (Pyridium) 200 mg PO TID #6 tabs 03/31/23 [Rx Last Taken Unknown] tizanidine 4 mg tablet 4 mg PO 04/02/23 [History Last Taken Unknown] Allergy/AdvReac Type Severity Reaction Status Date / Time colestipol [From Colestid] Allergy Mild unknown Verified 04/08/23 09:21 pregabalin [From Lyrica] Allergy Mild Hives Verified 04/08/23 09:21 amitriptyline Allergy Rash Verified 04/08/23 09:21 temazepam [From Restoril] AdvReac Mild Nausea/Vom/ Verified 04/08/23 09:21 Diarrhea Antihistamines - Alkylamine AdvReac Nausea/Vom/ Verified 04/08/23 09:21 Diarrhea Antihistamines - Ethanolamine AdvReac Nausea/Vom/ Verified 04/08/23 09:21 Diarrhea Antihistamines - AdvReac Nausea/Vom/ Verified 04/08/23 09:21 Ethylenediamine Diarrhea Antihistamines - Piperazine AdvReac Nausea/Vom/ Verified 04/08/23 09:21 Diarrhea Antihistamines - Piperidine AdvReac Nausea/Vom/ Verified 04/08/23 09:21 Diarrhea aspirin AdvReac I'M ON Verified 04/08/23 09:21 BLOOD THINNERS codeine AdvReac Nausea Verified 04/08/23 09:21 Corticosteroids AdvReac Upset Verified 04/08/23 09:21 (Glucocorticoids) Stomach morphine AdvReac Nausea Verified 04/08/23 09:21 [id number] Reductase AdvReac Nausea Verified 04/08/23 09:21 Inhibitor [Nijtvib-Zti-Bos Reductase Inhibitor] Family History Mother Cancer CAD (coronary artery disease) Brain tumor Grandfather CVA (cerebral vascular accident) Father CAD (coronary artery disease) Ruptured abdominal aortic aneurysm (AAA) Sister Brain aneurysm Surgical History Brain aneurysm Fracture of right lower leg H/O hemorrhoidectomy H/O: History of angioplasty of peripheral vessel History of angioplasty of peripheral vessel (07/11/19) History of section History of hemorrhoidectomy History of hysterectomy History of left breast biopsy History of left heart catheterization (01/25/15) History of left-sided carotid endarterectomy History of partial thyroidectomy (11/30/05) History of right-sided carotid endarterectomy S/P coil embolization of cerebral aneurysm S/P hysterectomy S/P insertion of iliac artery stent S/P thyroidectomy Stenosis of left subclavian artery Social History household members: none Smoking Status: Current every day smoker tobacco type: cigarettes alcohol intake: never caffeine: Yes Type: coffee and tea ROS ROS ED Constitutional Constitutional ED: Denies chills or fever(s) Eyes Eyes: Denies change in vision or diplopia ENT ENT ED: Denies rhinorrhea or sore throat Cardiovascular Cardiovascular: Denies chest pain or palpitations Respiratory/Chest Respiratory/Chest: Denies cough or dyspnea Gastrointestinal Gastrointestinal: Denies abdominal pain, diarrhea, nausea or vomiting Genitourinary Genitourinary ED: Denies dysuria or hematuria Musculoskeletal Musculoskeletal: Reports back pain; Denies neck pain Integumentary Denies abscess or rash Neurologic Neurologic: Reports paresthesias; Denies headache(s) or weakness Psychiatric Psychiatric: Denies anxiety or suicidal thoughts EXAM Physical Exam Const Vital Signs: 04/08/23 09:19 04/08/23 09:23 04/08/23 09:34 Temperature 97.5 F L Temperature Source Temporal Pulse Rate 18 L 46 L Respiratory Rate 14 Respiratory Pattern Normal Blood Pressure 216/90 H Blood Pressure Mean 132 Pulse Ox 97 Oxygen Delivery Method Room Air 04/08/23 09:47 04/08/23 10:11 04/08/23 10:55 Temperature Temperature Source Pulse Rate Respiratory Rate Respiratory Pattern Blood Pressure 141/63 H 171/84 H Blood Pressure Mean 89 113 Pulse Ox Oxygen Delivery Method Room Air 04/08/23 12:14 Temperature Temperature Source Pulse Rate 50 L Respiratory Rate 12 Respiratory Pattern Blood Pressure 162/87 H Blood Pressure Mean 112 Pulse Ox 98 Oxygen Delivery Method Room Air Positive well nourished and well developed General Appearance ED: well developed and NAD HEENT Reports moist mucous membranes normocephalic and atraumatic Eyes PERRL and EOMs intact bilaterally Neck full ROM and supple Resp normal respiratory effort and clear to auscultation bilaterally Cardio regular rate, regular rhythm and no murmurs GI non-tender and non-distended Auscultation: normoactive bowel sounds Palpation: soft Back/Spine normal to inspection Back/Spine Narrative: Very superficially tender throughout the left thoracic paraspinal and ribs area at about the level of T7 or so, I am estimating that. She states that is the old pain that has been there for months, but she indicates the same level where she is currently having the new pain, and she has paraspinal tenderness on the right as well. There is no midline tenderness or step-off, no rashes. Twisting [id number], she is able to do that and states that it does hurt worse when she does this. General Back: other FROM ; Negative for CVA tenderness Extremity normal to inspection General Extremety ED: Negative for edema, pulses abnormal or tenderness General Extremity: Negative for edema or pulses abnormal Neuro oriented x3, CN's II-XII intact bilaterally and no sensory deficits noted Neuro Narrative: Subjective paresthesias bilateral lower face without facial droop, and left upper extremity without gross loss of sensation and no loss of strength or pulse. Sensorium / Orientation: awake and alert Motor Exam: strength 5/5 throughout Psych Psych Narrative: A little anxious but otherwise unremarkable Skin no rashes or lesions noted and no wounds MDM MDM MDM Narrative Medical decision making narrative: I think primarily we need to rule out acute coronary syndrome; she does have a history of arterial disease and her blood pressure is 216/90. I do not think she needs emergent x-rays of her spine or emergent MRI, and with her multiple sclerosis, some of the symptoms could be related to that, and/or areas of spinal stenosis. She does not have any extremity weakness right now neurologically and does not need any of those images done emergently. She understands that she can follow-up for these other testing, but right now and primarily going to get her pressure down and obtain a cardiac work-up including a troponin and a delta. She is comfortable with that plan and understands that if these symptoms are related to her chronic issues, we may not be able to tell her today nor figured out today. Patient's work-up is negative including the delta troponin, see below. During her observation while we were waiting for the second troponin to come back, the patient ran out and said that she felt like she was going to pass out, with which there were no telemetry events or significant bradycardia, since she had a heart rate around 50 the entire time she was here, she said it coincided with the pain in her left back shooting through to her left breast and chest. Staff had a EKG repeated, I reviewed it as below it was normal and unchanged compared with the initial 1. I reviewed her telemetry data as well. I reexamined her, she is tender in the left chest as she is in the left back, and it hurts worse for her to twist/roll around in the bed, suggesting musculoskeletal etiology. With her pulse ox 90% and her heart rate at 50, especially with being on clopidogrel I do not think she needs to have work-up for emergent pulmonary embolus at this time. The delta came back negative and I do not think she is having acute coronary syndrome. She is amenable to getting something for pain. She has a lot of medication reactions. She is on clopidogrel and aspirin and giving her 10 mg of Toradol. I did treat her blood pressure, on reevaluation it is 162/87. Stable for discharge with close outpatient follow-up. Lab Data Attestation: I reviewed the patient's lab results. Labs: Laboratory Results - last 24 hr 04/08/23 04/08/23 04/08/23 09:25 09:25 11:45 WBC 7.6 RBC 5.14 Hgb 15.1 H Hct 45.8 MCV 89.1 MCH 29.4 MCHC 33.0 RDW Std Deviation 46.6 H RDW Coeff of David 14.4 Plt Count 171 MPV 10.2 Immature Gran % (Auto) 0.400 Neut % (Auto) 70.5 H Lymph % (Auto) 19.2 Mercer % (Auto) 7.7 Eos % (Auto) 1.5 Baso % (Auto) 0.7 Absolute Neuts (auto) 5.3 Absolute Lymphs (auto) 1.45 Nucleated RBC % 0 Sodium 141 Potassium 3.8 Chloride 105 Carbon Dioxide 29.0 Anion Gap 7 BUN 21 H Creatinine 0.88 Estim Creat Clear Calc 50.23 Est GFR (MDRD) Af Amer 83 Est GFR (MDRD) Non-Af 68 BUN/Creatinine Ratio 24.0 H Glucose 96 Calcium 9.6 Troponin I High Sens 9 9 Radiography Diagnostic Testing: Clinical Impression(s) from Imaging Studies Chest X-Ray 04/08/23 09:34 IMPRESSION: 1. No acute findings in the chest. 2. No interval change when compared to 03/20/2023. Electronically Signed: Nuno Chamorro MD at 10:51 EDT , Rhythm Strip Rhythm Strip: Sinus Rhythm Rate: 50 Ectopy: None EKG Initial EKG: Attestation: I personally reviewed and interpreted this EKG as follows: Interpretation: No Acute Injury Pattern and Sinus Bradycardia Prior EKG tracings: available for review Prior: Unchanged Follow-up EKG: Attestation: I personally reviewed and interpreted this EKG as follows: Interpretation: No Acute Injury Pattern and Sinus Bradycardia Prior EKG tracings: available for review Prior: Unchanged Discharge Plan Triage Chief Complaint: Back Other Complaint: Numb/Ting ED Provider: Jori Garcia Dx/Rx/DC Orders Clinical Impression: Acute upper back pain, Paresthesias, Left-sided chest pain, Accelerated hypertension, Chronic pain Instructions: ED Back Pain (Acute or Chronic) Prescriptions: No Action gabapentin 800 mg tablet 800 mg PO TID baclofen 20 mg tablet 20 mg PO Q8H levothyroxine 50 mcg tablet 50 mcg PO DAILY Label Comments: take 1 tablet by mouth once daily oxycodone 10 mg tablet 10 mg PO BID Label Comments: take 1 tablet by mouth twice a day if needed for pain sodium hyaluronate (viscosup) [Supartz FX] 10 mg/mL syringe 25 mg intra-articular ONCE Qty: 2.5 0RF tizanidine 4 mg tablet 4 mg PO Label Comments: take 1 tablet by mouth every 6 hours if needed for muscle spasm cholecalciferol (vitamin D3) 5,000 UNIT tablet 5,000 unit PO DAILY Label Comments: supplement phenazopyridine [Pyridium] 200 mg tablet 200 mg PO TID Qty: 6 0RF cephalexin [cephalexin] 500 mg capsule 500 mg PO Q12 Qty: 10 0RF clopidogrel 75 mg tablet 75 mg PO DAILY Qty: 90 3RF metoprolol succinate 25 mg tablet extended release 24 hr 25 mg PO DAILY Qty: 90 3RF Primary Care Provider: Daron Benton Referrals: Daron Benton MD [Primary Care Provider] - As soon as possible Disposition Disposition: Home, Self Care
[2023-04-08] MEDS: oxyCODONE 5 MG Tablet PO (09:42)
[2023-04-08] MEDS: hydrALAZINE 20 MG/ML Vial 10 MG IV (09:42)
--- NOTE | 2023-04-08 09:44 | EKG12_ITS ---
Test Reason : CHEST PAIN Blood Pressure : / mmHG Vent. Rate : 046 BPM Atrial Rate : 046 BPM P-R Int : 148 ms QRS Dur : 086 ms QT Int : 496 ms P-R-T Axes : 066 027 054 degrees QTc Int : 434 ms Sinus bradycardia Possible Left atrial enlargement Borderline ECG Confirmed by OTILIA FOX, MAYI ([id number]), newspaper photo editor SELAM BARRETO ([id number]) on 04/09/2023 10:15:29 AM Referred By: BB Confirmed By:MAYI BINGHAM MD
[2023-04-08 09:45] LABS: Absolute Lymphocyte Count 1.45 X10^3/uL (0.83-4.51); Absolute Neutrophil Count 5.3 X10^3/uL (2.0-7.7); Basophil# 0.05 X10^3/uL; Basophil% 0.7 % (0-1); Eosinophil# 0.11 X10^3/uL; Eosinophils% 1.5 % (0-5); Hematocrit 45.8 % (37-47); Hemoglobin 15.1 g/dL (12.0-15.0); Lymphocyte # 1.45 X10^3/ul (0.83-4.51); Lymphocyte % 19.2 % (19-41); Mean Corpuscular Hgb 29.4 pg (27.0-32.0); Mean Corpuscular Volume 89.1 fL (81-99); Mean Platelet Vol. 10.2 fl (6.2-12.0); Monocyte# 0.58 X10^3/uL; Monocyte% 7.7 % (0-10); NRBC Flagged by Analyzer 0 % (0-5); Neutrophil # 5.33 X10^3/uL (2.7-7.7); Neutrophil % 70.5 % (47-70); Platelet Count 171 K/mm3 (150-450); RBC Distribution Width CV 14.4 % (11.6-14.6); RBC Distribution Width SD 46.6 fl (35.1-43.9); Red Blood Count 5.14 M/mm3 (4.2-5.4); White Blood Count 7.6 K/mm3 (4.4-11.0)
--- NOTE | 2023-04-08 09:45 | EKG12_ITS ---
Test Reason : Blood Pressure : / mmHG Vent. Rate : 049 BPM Atrial Rate : 049 BPM P-R Int : 140 ms QRS Dur : 086 ms QT Int : 500 ms P-R-T Axes : 067 044 065 degrees QTc Int : 451 ms Sinus bradycardia Possible Left atrial enlargement Nonspecific ST abnormality Abnormal ECG Confirmed by OTILIA FOX, MAYI ([id number]), industrial editor SELAM BARRETO ([id number]) on 04/09/2023 10:13:07 AM Referred By: MADDY Confirmed By:MAYI BINGHAM MD
[2023-04-08 10:00] LABS: Anion Gap 7 (5-15); BUN 21 mg/dL (7-18); Calcium,Total 9.6 mg/dL (8.5-10.1); Chloride 105 mmol/L (98-107); Creatinine, Serum 0.88 mg/dL (0.55-1.02); EST Glomerular Filtration Rate 68 mL/min (>60); Est Glom Filt Rate - Afr Amer 83 mL/min (>60); Estimated Creatinine Clearance 50.23 ml/min; Glucose 96 mg/dL (74-106); Potassium 3.8 mmol/L (3.5-5.1); Sodium Level 141 mmol/L (136-145); Troponin-I HS (w/2H Reflex) 9 pg/mL (3.0-54.0)
[2023-04-08 10:11] VITALS: BP 141/63
[2023-04-08 10:55] VITALS: BP 171/84
[2023-04-08 11:40] LABS: Reflex Troponin-HS? (from REC) Y
[2023-04-08] MEDS: Mag Hydrox/Al Hydrox/Simeth 30 ML UDC PO (11:46)
[2023-04-08 12:10] LABS: Troponin-I HS 9 pg/mL (3.0-54.0)
[2023-04-08 12:14] VITALS: BP 162/87; PULSE 50; RESP 12; O2SAT 98
[2023-04-08] MEDS: Ketorolac 15 MG/ML Vial 10 MG IV (13:31)
== END 2023-04-08 13:39 | disposition home or self-care (01) ==
PROVIDERS: Emergency Provider Emergency Medicine; PCP Family Medicine; Visit Provider Emergency Medicine
DX: M54.9 Dorsalgia, unspecified (principal); G35 Multiple sclerosis; R07.89 Other chest pain; I25.10 Atherosclerotic heart disease of native coronary artery without angina pectoris; I10 Essential (primary) hypertension; E78.5 Hyperlipidemia, unspecified; M48.02 Spinal stenosis, cervical region; G89.29 Other chronic pain; R20.2 Paresthesia of skin; F17.210 Nicotine dependence, cigarettes, uncomplicated; Z79.82 Long term (current) use of aspirin; Z79.899 Other long term (current) drug therapy
CPT/HCPCS: 71046; 80048; 84484; 85025; 93005; 96374; 96375; 99285; A4216

== ENCOUNTER → 2023-04-10 | Outpatient (CLI) | payer MEDICARE, MEDICAID, SELFPAY ==
--- NOTE | 2023-04-10 09:23 | NM_ITS ---
CLINICAL: 67-year-old female with history of diffuse bone pain. WHOLE BODY 99m Tc MDP RADIONUCLIDE BONE SCINTIGRAPHY COMPARISON: None available FINDINGS: Following the intravenous administration of 27.0 mCi of 99m Tc MDP, whole body bone images reveal: 1. Increased radiopharmaceutical concentration is defined in the patellofemoral compartments of both knees, the acromioclavicular compartments of the bilateral shoulders, the dorsal medial compartment of the right ankle, the left temporomandibular joint. 2. The remaining skeletal structures are scintigraphically unremarkable with normal-appearing renal images and urinary bladder activity identified. NM/Bone Scan Whole Body IMPRESSION: 1. The increase in radiopharmaceutical defined in the bilateral knee and shoulder articulations, the right ankle and left temporomandibular joint is most consistent with degenerative arthrosis. 2. No other definitive scintigraphic abnormalities are encountered. There is no evidence of trauma-fracture or large articulation synovial inflammation on the present examination. Electronically Signed: Elijah Odom, at 22:58 EDT ,
== END | disposition home or self-care (01) ==
LOC: NM 09:19
PROVIDERS: PCP Family Medicine; Referring Provider Orthopaedic Surgery; Visit Provider Orthopaedic Surgery
DX: M54.6 Pain in thoracic spine (principal)
CPT/HCPCS: 78306; A9503

== ENCOUNTER → 2023-04-14 | Outpatient (CLI) | payer MEDICARE, MEDICAID, SELFPAY ==
--- NOTE | 2023-04-14 08:00 | MRI_ITS ---
Left-sided pain. MRI thoracic spine routine protocol. Sagittal T1, T2, STIR with axial T1 and T2-weighted images. FINDINGS: This patient has a significant convex rightward thoracic curvature. This is centered at T9/10. There is no focal aggressive marrow process appreciated. Mild multilevel thoracic spine intervertebral discal narrowing. T1/T2: No significant disc bulge, canal stenosis or foraminal narrowing. T2/T3: No significant disc bulge, canal stenosis or right-sided foraminal narrowing. There is mild left-sided foraminal narrowing contributed to by facet disease. T3/T4: No significant disc bulge, canal stenosis or foraminal narrowing. T4/T5: Slight broad-based bulge without significant central canal stenosis or foraminal narrowing identified. T5/T6: Slight broad-based bulge. Slight flattening at the right side of the ventral cord without significant central canal stenosis or foraminal narrowing. T6/T7: Mild central protrusion effaces ventral CSF space. No central canal stenosis or foraminal narrowing. T7/T8: Mild broad-based bulge. Efface ventral CSF space without significant central canal stenosis. Mild left-sided foraminal narrowing contributed to by facet disease. T8/T9: Mild broad-based bulge. Effaced ventral CSF space. No significant central canal stenosis. Slight left-sided foraminal narrowing contributed to by facet disease. T9/T10: No significant disc bulge, canal stenosis or foraminal narrowing. T10/T11: Mild broad-based bulge. No significant canal stenosis or foraminal narrowing. T11/T12: Mild broad-based bulge. No significant central canal stenosis or foraminal narrowing. This patient does have a few multilevel thoracic spine Schmorl''s nodes. No abnormal cord signal. MRI/Spine Thoracic (Routine) IMPRESSION: Spinal curvature. Mild degenerative change overall as outlined. Electronically Signed: Renard Vivas MD at 22:39 EDT ,
== END | disposition home or self-care (01) ==
LOC: MRI 07:56
PROVIDERS: PCP Family Medicine; Referring Provider Orthopaedic Surgery; Visit Provider Orthopaedic Surgery
DX: M54.6 Pain in thoracic spine (principal)
CPT/HCPCS: 72146

== ENCOUNTER → 2023-04-26 | Outpatient (CLI) | payer MEDICARE, MEDICAID, SELFPAY ==
[2023-04-26 17:57] LABS: International Normalized Ratio 0.9; Prothrombin Time (Protime)PT. 12.5 SECONDS (11.7-14.9)
[2023-04-26 18:21] LABS: AST(SGOT) 14 U/L (15-37); Alanine Aminotransfer ALT/SGPT 26 U/L (13-56); Albumin, Serum 3.5 g/dL (3.2-5.0); Alkaline Phosphatase 109 U/L (45-117); Anion Gap 2 (5-15); BUN 26 mg/dL (7-18); BUN/Creat Ratio 26.9 RATIO (10-20); Calcium,Total 9.5 mg/dL (8.5-10.1); Chloride 109 mmol/L (98-107); Creatinine, Serum 0.97 mg/dL (0.55-1.02); EST Glomerular Filtration Rate 61 mL/min (>60); Est Glom Filt Rate - Afr Amer 73 mL/min (>60); Globulin 3.6 g/dL (2.2-4.2); Glucose 95 mg/dL (74-106); Potassium 4.6 mmol/L (3.5-5.1); Prealbumin 19.6 mg/dL (20.0-40.0); Protein, Total 7.1 g/dL (6.4-8.2); Sodium Level 138 mmol/L (136-145)
== END | disposition home or self-care (01) ==
LOC: MFPLAB 14:13
PROVIDERS: PCP Family Medicine; Visit Provider Family Medicine
DX: R63.4 Abnormal weight loss (principal); I70.91 Generalized atherosclerosis
CPT/HCPCS: 36415; 80053; 84134; 85610

== ENCOUNTER → 2023-07-26 | Outpatient (CLI) | payer MEDICARE, MEDICAID, SELFPAY ==
--- NOTE | 2023-07-26 08:16 | ART_ITS ---
Reason For Study: Athersclerosis Procedure A bilateral lower extremity continuous wave Doppler with analog waveform analysis and ankle brachial indexes. Left Segmental Pressures Left brachial= 156mmHg. Left posterior tibial artery = 71mmHg. Left dorsalis pedis artery = 85mmHg. The left dorsalis pedis waveforms are monophasic. The left posterior tibial artery waveforms are monophasic. Right Segmental Pressures Right brachial= 150mmHg. Right posterior tibial artery = 92mmHg. Right dorsalis pedis artery = 91mmHg. The right dorsalis pedis waveforms are monophasic. The right posterior tibial artery waveforms are monophasic. Indices The right ankle brachial index by the dorsalis pedis is 0.58. The right ankle brachial index by the posterior tibial artery is 0.59. The left ankle brachial index by the dorsalis pedis is 0.54. The left ankle brachial index by the posterior tibial artery is 0.46. VL/Ankle Brachial Index Interpretation Summary Bilateral moderate disease with monophasic flow and JAY 0.59 and 0.54. Ordering Physician: Kam Nava Referring Physician: Daron Benton MD Performed By: Tena Davidson RVT
--- NOTE | 2023-07-26 08:16 | ADU_ITS ---
Reason For Study: Atherosclerosis Right Velocities Left Velocities Ext. Iliac Artery, dist = 95.7 cm./sec. Ext Iliac Artery, dist = 86.9 cm./sec. Common Femoral Artery, mid = 90.6 cm./sec. Common Femoral Artery, mid = 105.2 cm./sec. Supf Femoral Artery, prox = 46.8 cm./sec. SFA prox-distal, Stent noted, No flow throughout SFA prox/mid, 26.8 cm/sec. SFA distal, distal to stent, No flow. SFA mid, Retrograde flow. Profunda Femoral Artery = 213.3 cm./sec. SFA mid/dist, No flow. Popliteal Artery, proximal, = 20.6 cm./sec. SFA distal, 46 cm/sec. Popliteal Artery, mid = 26.3 cm./sec. Profunda Femoral Artery = 105.2 cm./sec. Popliteal Artery, distal = 30.5 cm./sec. Popliteal Artery, mid = 21.5 cm./sec. Post. Tibial Artery, prox = 14.5 cm./sec. Post. Tibial Artery, prox = 23.5 cm./sec. Post Tibial Artery, mid = 13 cm./sec. Post. Tibial Artery, mid = 17.4 cm./sec. Post Tibial Artery, dist. = 13 cm./sec. Post. Tibial Artery, dist = 22.5 cm./sec. Peroneal Artery, prox = 10.2 cm./sec. Peroneal Artery, prox = 8.7 cm./sec. Peroneal Artery, mid = 11.4 cm./sec. Peroneal Artery, mid = 10.9 cm./sec. Peroneal Artery,dist. = 9 cm./sec. Peroneal Artery,dist = 8.1 cm./sec. Ant.Tibial Artery, prox = 22 cm./sec. Ant. Tibial Artery, prox = 40.3 cm./sec. Ant Tibial Artery, mid = 17.3 cm./sec. Ant. Tibial Artery, mid = 20.3 cm./sec. Ant. Tibial Artery, distal = 17.7 cm./sec. Ant. Tibial Artery, dist = 19.9 cm./sec. Procedure Exam performed in department. /US Art Duplex Bilat Lower Ext Interpretation Summary Bilateral femoral occlussions. Ordering Physician: Kam Nava Referring Physician: Daron Benton MD Performed By: Tena Davidson RVT
== END | disposition home or self-care (01) ==
LOC: CVS 08:14
PROVIDERS: PCP Family Medicine; Referring Provider Surgery Vascular Surgery; Visit Provider Surgery Vascular Surgery
DX: I70.213 Atherosclerosis of native arteries of extremities with intermittent claudication, bilateral legs (principal); I74.09 Other arterial embolism and thrombosis of abdominal aorta
CPT/HCPCS: 93922; 93925

== ENCOUNTER → 2023-08-21 | Outpatient (CLI) | payer MEDICARE, MEDICAID, SELFPAY ==
[2023-08-21 17:44] LABS: Absolute Lymphocyte Count 1.45 X10^3/uL (0.83-4.51); Basophil# 0.05 X10^3/uL; Basophil% 0.7 % (0-1); Eosinophil# 0.23 X10^3/uL; Eosinophils% 3.1 % (0-5); Hematocrit 45.7 % (37-47); Hemoglobin 14.5 g/dL (12.0-15.0); Lymphocyte # 1.45 X10^3/ul (0.83-4.51); Lymphocyte % 19.8 % (19-41); Mean Corp Hgb Conc 31.7 g/dL (32-36); Mean Corpuscular Hgb 29.1 pg (27.0-32.0); Mean Corpuscular Volume 91.6 fL (81-99); Mean Platelet Vol. 10.7 fl (6.2-12.0); Monocyte# 0.55 X10^3/uL; Monocyte% 7.5 % (0-10); NRBC Flagged by Analyzer 0 % (0-5); Neutrophil # 5.02 X10^3/uL (2.7-7.7); Neutrophil % 68.4 % (47-70); Platelet Count 184 K/mm3 (150-450); RBC Distribution Width CV 13.8 % (11.6-14.6); RBC Distribution Width SD 46.4 fl (35.1-43.9); Red Blood Count 4.99 M/mm3 (4.2-5.4); White Blood Count 7.3 K/mm3 (4.4-11.0)
[2023-08-21 18:41] LABS: AST(SGOT) 18 U/L (15-37); Alanine Aminotransfer ALT/SGPT 26 U/L (13-56); Albumin, Serum 3.7 g/dL (3.2-5.0); Alkaline Phosphatase 122 U/L (45-117); Anion Gap 3 (5-15); BUN 24 mg/dL (7-18); BUN/Creat Ratio 22.2 RATIO (10-20); Calcium,Total 9.2 mg/dL (8.5-10.1); Chloride 108 mmol/L (98-107); Creatinine, Serum 1.08 mg/dL (0.55-1.02); EST Glomerular Filtration Rate 53 mL/min (>60); Est Glom Filt Rate - Afr Amer 65 mL/min (>60); Globulin 3.6 g/dL (2.2-4.2); Glucose 86 mg/dL (74-106); Potassium 4.7 mmol/L (3.5-5.1); Protein, Total 7.3 g/dL (6.4-8.2); Sodium Level 139 mmol/L (136-145)
== END | disposition home or self-care (01) ==
LOC: MFPLAB 14:11
PROVIDERS: PCP Family Medicine; Visit Provider Family Medicine
DX: R63.4 Abnormal weight loss (principal); G35 Multiple sclerosis; I73.9 Peripheral vascular disease, unspecified; G89.29 Other chronic pain
CPT/HCPCS: 36415; 80053; 84443; 85025

== ENCOUNTER → 2023-09-04 | Outpatient (CLI) | payer MEDICARE, MEDICAID, SELFPAY ==
--- NOTE | 2023-09-04 07:29 | CDU_ITS ---
Reason For Study: carotid stenosis Rt. Velocities/BP Lt. Velocities/BP Lt CCA inflow 115.6/18.8 cm/s. Prox CCA 260.7/30.1 cm/sec. Prox Anast 243.4/23.6 cm/s. Mid CCA 262.6/26.7 cm/sec. Prox Graft 285.4/10.7 cm/s. Dist CCA 257.4/29.3 cm/sec. Mid Graft 218.5/18.9 cm/s. Prox ICA 178.5/29.2 cm/sec. Dist Graft 194.9 cm/s Mid ICA 122.9/17.0 cm/sec. Dist Anast 400.2/19.9 cm/s. Dist ICA 144.8/27.9 cm/sec. Prox CCA 194.9 cm/sec. Lt. ICA/CCA = .7. Mid CCA 152.9 cm/sec. Prox ECA 57.9/6.0 cm/sec. Dist CCA 140.0 cm/sec. Lt. Vert. 71.8/15.2 cm/sec. Prox ICA 350.4/12.9 cm/sec. Mid ICA 303.3/32.6 cm/sec. Dist ICA 122.8/24.7 cm/sec. Prox ECA 271.9/12.9 cm/sec. Right Extracranial There is heterogeneous, irregular atherosclerotic plaque noted in the right common carotid artery. Retrograde flow noted in the right CCA. There is heterogeneous, irregular atherosclerotic plaque noted in the right internal carotid artery. There is heterogeneous, irregular atherosclerotic plaque noted in the right external carotid artery. Abnormal waveform morphology noted in the right vertebral artery with bidirectional flow. Left Extracranial There is heterogeneous, irregular atherosclerotic plaque noted in the left common carotid artery. There is heterogeneous, irregular atherosclerotic plaque noted in the left internal carotid artery. The atherosclerotic plaque causes acoustic shadowing. There is heterogeneous, irregular atherosclerotic plaque noted in the left external carotid artery. Antegrade flow is noted in the left vertebral artery. Procedure Carotid Duplex [id number]. This is a Carotid Duplex examination using B-mode, color flow and specral Doppler. The exam was diagnostic. Exam performed in department. VL/Carotid Duplex Ultrasound Interpretation Summary Moderate stenosis anastamosis by velocity criteria. Severe (>70%) stenosis righ t extracranial internal carotid. Moderate (50-69%) stenosis left extracranial internal carotid . Flow within the left verterbral artery is retrograde, consistent with a subclavian steal phenom enon. Ordering Physician: Kam Nava Performed By: Von Rodriguez RVT
--- NOTE | 2023-09-04 07:29 | ART_ITS ---
Reason For Study: atherosclerosis Procedure A bilateral lower extremity continuous wave Doppler with analog waveform analysis and ankle brachial indexes. Prelim called to Dr. Nava's office. Left Segmental Pressures Left brachial= 208mmHg. Left posterior tibial artery = 93mmHg. Left dorsalis pedis artery = 98mmHg. Left digit = 78 mmHg. The left dorsalis pedis waveforms are monophasic. The left posterior tibial artery waveforms are monophasic. Right Segmental Pressures Right brachial= 196mmHg. Right posterior tibial artery = 126mmHg. Right dorsalis pedis artery = 109mmHg. Right digit = 97 mmHg. The right dorsalis pedis waveforms are monophasic. The right posterior tibial artery waveforms are monophasic. Indices The right ankle brachial index by the posterior tibial artery is .61. The right ankle brachial index by the dorsalis pedis is .52. The right digital-brachial index is .47. The left ankle brachial index by the dorsalis pedis is .47. The left ankle brachial index by the posterior tibial artery is .45. The left digital-brachial index is .38. VL/Ankle Brachial Index Interpretation Summary Bilateral moderate occlusive disease at rest with JAY 0.61 and 0.47. Digits 0.4 7 and 0.38. Ordering Physician: Kam Nava Performed By: Von Rodriguez RVT
--- NOTE | 2023-09-04 07:29 | AAVD_ITS ---
Reason For Study: aortoiliac occlusive disease Aorta Measurements Aorta Doppler Measurements Proximal aorta measures2.38 x 2.24cm. in cross- Peak systolic flow velocities within the proximal sectional axis. aorta measure 65.1 cm/sec. Proximal aorta measures2.29cm. in longitudinal Peak systolic flow velocities within the mid aorta axis. measure 48.7 cm/sec. Mid aorta measures1.35 x 1.51cm. in cross- Peak systolic flow velocities within the distal sectional axis. aorta measure 131.5 cm/sec. Mid aorta measures1.47cm. in longitudinal axis. Distal aorta measures1.27 x 1.3cm. in cross- sectional axis. Distal aorta measures1.22cm. in longitudinal axis. Left Iliac Artery Left iliac artery measures .48 x .62 cm. in the cross-sectional axis. Left iliac artery measures .54 cm. in the longitudinal axis. Peak systolic velocity in the left iliac artery measures 164.4 cm/sec. Right Iliac Artery Right iliac artery measures .55 x .54 cm. in the cross-sectional axis. Right iliac artery measures .6 cm. in the longitudinal axis. Peak systolic velocity in the right iliac artery measures 461.7 cm/sec. Procedure Aorta IVC Iliac vasculature or bypass grafts [id number]. The exam was diagnostic. Exam performed in department. VL/Abd Aortic/IVC Duplex scan Interpretation Summary Aorta and left iliac patent and no significant stenosis. Right common iliac sev ere stenosis. No aneurysm noted. Ordering Physician: Kam Nava Performed By: Von Rodriguez RVT
== END | disposition home or self-care (01) ==
LOC: CVS 07:28
PROVIDERS: PCP Family Medicine; Referring Provider Surgery Vascular Surgery; Visit Provider Surgery Vascular Surgery
DX: I70.213 Atherosclerosis of native arteries of extremities with intermittent claudication, bilateral legs (principal); I74.09 Other arterial embolism and thrombosis of abdominal aorta; I65.23 Occlusion and stenosis of bilateral carotid arteries
CPT/HCPCS: 93880; 93922; 93978

== ENCOUNTER 2023-10-05 00:29 | Emergency (ER) | payer MEDICARE, MEDICAID, SELFPAY ==
--- NOTE | 2023-10-05 00:33 | EKG12_ITS ---
Test Reason : Blood Pressure : / mmHG Vent. Rate : 071 BPM Atrial Rate : 070 BPM P-R Int : 000 ms QRS Dur : 090 ms QT Int : 408 ms P-R-T Axes : 000 028 046 degrees QTc Int : 443 ms Sinus rhythm with PAC's Otherwise normal ECG Confirmed by OTILIA FOX, MAYI ([id number]), material expeditor SEALM BARRETO ([id number]) on 10/10/2023 12:08:29 PM Referred By: Confirmed By:MAYI BINGHAM MD
[2023-10-05 00:40] LABS: Absolute Lymphocyte Count 1.62 X10^3/uL (0.83-4.51); Absolute Neutrophil Count 4.8 X10^3/uL (2.0-7.7); Basophil# 0.05 X10^3/uL; Basophil% 0.7 % (0-1); Eosinophil# 0.21 X10^3/uL; Eosinophils% 2.9 % (0-5); Hematocrit 46.1 % (37-47); Hemoglobin 14.9 g/dL (12.0-15.0); Lymphocyte # 1.62 X10^3/ul (0.83-4.51); Lymphocyte % 22.4 % (19-41); Mean Corp Hgb Conc 32.3 g/dL (32-36); Mean Corpuscular Hgb 28.7 pg (27.0-32.0); Mean Corpuscular Volume 88.8 fL (81-99); Mean Platelet Vol. 9.6 fl (6.2-12.0); Monocyte# 0.53 X10^3/uL; Monocyte% 7.3 % (0-10); NRBC Flagged by Analyzer 0 % (0-5); Neutrophil # 4.78 X10^3/uL (2.7-7.7); Neutrophil % 66.3 % (47-70); Platelet Count 206 K/mm3 (150-450); RBC Distribution Width SD 45.3 fl (35.1-43.9); Red Blood Count 5.19 M/mm3 (4.2-5.4); White Blood Count 7.2 K/mm3 (4.4-11.0)
[2023-10-05 00:43] VITALS: BP 210/96; BP 230/97; PULSE 55; PULSE 57; RESP 18; TEMP 36.6; O2SAT 97; O2SAT 98; BMI 21.7
[2023-10-05 01:00] LABS: Anion Gap 5 (5-15); BUN 23 mg/dL (7-18); BUN/Creat Ratio 20.7 RATIO (10-20); Calcium,Total 9.5 mg/dL (8.5-10.1); Chloride 110 mmol/L (98-107); Creatinine, Serum 1.11 mg/dL (0.55-1.02); EST Glomerular Filtration Rate 52 mL/min (>60); Est Glom Filt Rate - Afr Amer 63 mL/min (>60); Estimated Creatinine Clearance 43.04 ml/min; Glucose 108 mg/dL (74-106); Potassium 4.3 mmol/L (3.5-5.1); Sodium Level 142 mmol/L (136-145); Troponin-I HS (w/2H Reflex) 9 pg/mL (3.0-54.0)
--- NOTE | 2023-10-05 01:00 | RAD_ITS ---
INDICATION: chest pain EXAMINATION/TECHNIQUE: X-RAY - XR Chest 1 View COMPARISON: CR ChestMay 2022 FINDINGS: LINES/DEVICES: None. LUNGS: No consolidation, edema or effusion. No pneumothorax. MEDIASTINUM AND CARDIOVASCULAR STRUCTURES: Cardiac silhouette not enlarged. Central airways and mediastinal contour are unremarkable. BONES AND SOFT TISSUES: There is dextroscoliosis of the thoracic spine. RAD/Chest 1 View (Portable) IMPRESSION: No radiographic evidence of acute cardiopulmonary disease. Electronically Signed: Keith Hampton MD at 2:06 EST ,
[2023-10-05 01:24] VITALS: BP 211/113
--- NOTE | 2023-10-05 01:57 | CT_ITS ---
INDICATION: cooley hypertensive urgency EXAMINATION: CT BRAIN - CT Head or Brain W/O Contrast Injection TECHNIQUE: Multiple axial images were obtained of the head without intravenous contrast. A radiation dose optimization technique was used for this scan. IV Contrast dosage and agent: None. RADIATION DOSAGE (If Supplied By Facility): CTDIvol = ( 44.99 ) mGy, DLP = ( 745.49 ) mGycm COMPARISON: CT BrainApr 2021 FINDINGS: Extensive streak artifact arises from a rounded metallic density/embolization coil material which lies at the midline in the region of the anterior communicating artery. Normal soft tissue structures. Normal calvarium. Normal size ventricles and extra-axial spaces for the patient''''s age. Normal white matter tracts of the cerebral hemispheres. Normal basal ganglia and thalami. Normal brainstem. Normal cerebellum. There is no intracranial hemorrhage. There are no findings of an acute ischemic infarction. Normal visualized paranasal sinuses. Visualized globes are symmetric. Vascular calcification is present within the carotid siphons. CT/Brain/Head without Contrast IMPRESSION: No acute intracranial hemorrhage or other acute intracranial abnormality. Electronically Signed: Keith Hampton MD at 3:05 EST ,
--- NOTE | 2023-10-05 02:00 | ED.RN ---
pt reporting pain. dr buchanan aware.
--- NOTE | 2023-10-05 02:05 | EKG12_ITS ---
Test Reason : CP Blood Pressure : / mmHG Vent. Rate : 063 BPM Atrial Rate : 063 BPM P-R Int : 150 ms QRS Dur : 086 ms QT Int : 464 ms P-R-T Axes : 055 014 040 degrees QTc Int : 474 ms Sinus rhythm with Premature atrial complexes Possible Left atrial enlargement Borderline ECG Confirmed by OTILIA FOX, MAYI ([id number]), editorial director SELAM BARRETO ([id number]) on 10/10/2023 12:11:02 PM Referred By: PAVEL Confirmed By:MAYI BINGHAM MD
[2023-10-05 02:30] VITALS: BP 209/87
--- NOTE | 2023-10-05 02:30 | ED.RN ---
pt requesting pain meds and to be seen. dr buchanan aware
[2023-10-05 02:36] LABS: Reflex Troponin-HS? (from REC) Y
[2023-10-05 03:09] VITALS: BP 206/86
--- NOTE | 2023-10-05 03:12 | ED.RN ---
manual bp reported to dr buchanan
[2023-10-05 03:29] LABS: Troponin-I HS 8 pg/mL (3.0-54.0)
[2023-10-05] MEDS: Ondansetron 4 MG/2 ML Vial IV (04:15)
[2023-10-05] MEDS: 0.9% Normal Saline (500mL Bag) 500 ML 999 ML IV (04:15)
[2023-10-05] MEDS: MethylPREDNISolone 125 MG/2 ML Vial IV (04:16)
[2023-10-05] MEDS: HYDROmorphone 1 MG/ML Syringe IV ×2 (04:16→08:02)
[2023-10-05] MEDS: Orphenadrine 60 MG/2 ML Ampul IV (04:17)
--- NOTE | 2023-10-05 07:17 | EDS_ITS ---
HPI History of Present Illness Chief Complaint: Hypertension Informant: patient Narrative Narrative: Patient is a 68-year-old female with past medical history of hypertension and multiple sclerosis and chronic pain. She states that her blood pressure medications have been recently changed and her blood pressure has been fluctuating from approximately 200 down to 140. She states that she has had headache along with extremity pain as well as sensation of numbness and tingling. She states she is unsure if this is related to potential MS exacerbation or related to her blood pressure and therefore comes in for evaluation [facility] Medical History Angina pectoris Bilateral carotid artery stenosis Chronic pain syndrome Essential (primary) hypertension Fatty liver GERD (gastroesophageal reflux disease) Goiter History of transient ischemic attack (TIA) HLD (hyperlipidemia) Multiple sclerosis Nonobstructive atherosclerosis of coronary artery Nonsustained paroxysmal supraventricular tachycardia Osteoarthritis Osteoporosis Peripheral vascular occlusive disease Psoriasis Psoriatic arthritis Thrombocytopenia Home Medications cholecalciferol (vitamin D3) 125 mcg (5,000 unit) tablet 5,000 unit PO DAILY supplement 12/16/13 [History Last Taken 07/16/19] gabapentin 800 mg tablet 800 mg PO TID MS 07/16/18 [History Last Taken 07/16/19] baclofen 20 mg tablet 20 mg PO Q8H 08/11/21 [History Last Taken 01/18/22] levothyroxine 50 mcg tablet 50 mcg PO DAILY 08/11/21 [History Last Taken 01/18/22] oxycodone 10 mg tablet 10 mg PO Q6H PRN 05/24/23 [History Last Taken Unknown] clopidogrel 75 mg tablet 75 mg PO DAILY dose increased, pt is OUT of med, please fill #90 TABLETS 06/01/23 [Rx Last Taken Unknown] lisinopril 10 mg tablet 10 mg PO DAILY #30 tabs 09/04/23 [Rx Last Taken Unknown] oxycodone 20 mg tablet,crush resistant,extended release 12 hr 20 mg PO BID 5 days #10 tabs 10/05/23 [Rx Last Taken Unknown] prednisone 10 mg tablet 10 mg PO DAILY #63 tabs 10/05/23 [Rx Last Taken Unknown] Allergy/AdvReac Type Severity Reaction Status Date / Time colestipol [From Colestid] Allergy Mild unknown Verified 10/05/23 00:50 pregabalin [From Lyrica] Allergy Mild Hives Verified 10/05/23 00:50 amitriptyline Allergy Rash Verified 10/05/23 00:50 temazepam [From Restoril] AdvReac Mild Nausea/Vom/ Verified 10/05/23 00:50 Diarrhea Antihistamines - Alkylamine AdvReac Nausea/Vom/ Verified 10/05/23 00:50 Diarrhea Antihistamines - Ethanolamine AdvReac Nausea/Vom/ Verified 10/05/23 00:50 Diarrhea Antihistamines - AdvReac Nausea/Vom/ Verified 10/05/23 00:50 Ethylenediamine Diarrhea Antihistamines - Piperazine AdvReac Nausea/Vom/ Verified 10/05/23 00:50 Diarrhea Antihistamines - Piperidine AdvReac Nausea/Vom/ Verified 10/05/23 00:50 Diarrhea aspirin AdvReac I'M ON Verified 10/05/23 00:50 BLOOD THINNERS codeine AdvReac Nausea Verified 10/05/23 00:50 Corticosteroids AdvReac Upset Verified 10/05/23 00:50 (Glucocorticoids) Stomach morphine AdvReac Nausea Verified 10/05/23 00:50 Caxnbqg-RJR-MyF Reductase AdvReac Nausea Verified 10/05/23 00:50 Inhibitor [Enpatws-Pfk-Jlp Reductase Inhibitor] Family History Mother Cancer CAD (coronary artery disease) Brain tumor Grandfather CVA (cerebral vascular accident) Father CAD (coronary artery disease) Ruptured abdominal aortic aneurysm (AAA) Sister Brain aneurysm Surgical History Brain aneurysm Fracture of right lower leg H/O hemorrhoidectomy H/O: History of angioplasty of peripheral vessel History of angioplasty of peripheral vessel (07/11/19) History of section History of hemorrhoidectomy History of hysterectomy History of left breast biopsy History of left heart catheterization (01/25/15) History of left-sided carotid endarterectomy History of partial thyroidectomy (11/30/05) History of right-sided carotid endarterectomy S/P coil embolization of cerebral aneurysm S/P hysterectomy S/P insertion of iliac artery stent S/P thyroidectomy Stenosis of left subclavian artery Social History household members: none Smoking Status: Current every day smoker tobacco type: cigarettes alcohol intake: never caffeine: Yes Type: coffee and tea ROS ROS ED Constitutional Constitutional ED: Denies chills or fever(s) ENT ENT ED: Denies sore throat Cardiovascular Cardiovascular: Denies chest pain, palpitations or racing heartbeat Respiratory/Chest Respiratory/Chest: Denies cough or dyspnea Gastrointestinal Gastrointestinal: Reports nausea; Denies abdominal pain, diarrhea or vomiting Genitourinary Genitourinary ED: Denies dysuria Musculoskeletal Musculoskeletal: Reports myalgias Integumentary Denies rash Neurologic Neurologic: Reports headache(s) and paresthesias Hematologic/Lymphatic Hematologic/Lymphatic: Reports easy bleeding and easy bruising EXAM Physical Exam Const Vital Signs: 10/05/23 03:09 10/05/23 02:30 10/05/23 07:57 Respiratory Rate Blood Pressure 206/86 H 209/87 H 226/94 H Blood Pressure Mean 126 127 138 Pulse Ox 10/05/23 08:07 Respiratory Rate 16 Blood Pressure 214/82 H Blood Pressure Mean 126 Pulse Ox 96 Positive well nourished and well developed General Appearance ED: well developed; Negative for pallor HEENT HEENT Narrative: Normocephalic atraumatic Eyes PERRL and EOMs intact bilaterally General Eye ED: Negative for scleral icterus Neck supple Neck Narrative: No nuchal rigidity or meningeal signs present Resp normal respiratory effort and clear to auscultation bilaterally Resp Narrative: No nasal flaring retractions tachypnea or accessory muscle use Cardio regular rate and regular rhythm Rate: other Other Details: Heart is regular rate and rhythm without murmurs rubs or gallop Radial and carotid pulses are equal and symmetric GI non-tender and non-distended GI Narrative: Abdomen is soft nontender nondistended with hypoactive bowel sounds. No voluntary guarding or rigidity. No pulsatile mass or fluid wave Auscultation: hypoactive bowel sounds Palpation: soft Extremity normal to inspection Extremity Narrative: No bony deformity or joint effusion noted Neuro oriented x3 and CN's II-XII intact bilaterally Neuro Narrative: Cranial nerves II through XII are grossly intact without focal neurologic deficit No pronator drift no dysmetria no truncal ataxia NIH stroke scale score of 0 Sensorium / Orientation: alert Psych mental status grossly normal Skin no rashes or lesions noted General Skin Exam: Negative for jaundice or pallor MDM MDM MDM Narrative Medical decision making narrative: Patient presented to the ER hypertensive and had multiple complaints. Diffe rential diagnosis is for hypertensive emergency leading to acute kidney injury or potential acute coronary syndrome. There is also concern for a spontaneous brain bleed or MS exacerbation. Secondary to this basic blood work was obtained as well as chest x-ray and head CT. Head CT revealed no acute bleed or mass. Troponin was normal at 8 and lab work showed no signs of acute kidney injury or severe electrolyte derangement. This indicates patient is most likely having symptoms secondary to MS exacerbation. Secondary to this patient was given a bolus of Solu-Medrol 125 mg. Secondary to her persistent pain she was also treated with Dilaudid IV fluids and Zofran. Upon repeat evaluation patient reports improvement of her symptoms but not resolution. However her neuro exam remains normal and she is able to walk with a steady gait to and from the bathroom. Therefore at this time blood pressure remains high but he has no signs of endorgan damage she has had improvement of symptoms and physical exam and laboratory and CT scan does not reveal any acute finding. Therefore she needs to stay on her normal blood pressure medication but steroids and pain control will be provided secondary to the MS exacerbation. History & Record Review Discussion w/independent historian: Patient Lab Data Attestation: I reviewed the patient's lab results. Labs: Laboratory Results - last 24 hr 10/05/23 02:52 Magnesium 2.0 Troponin I High Sens 8 Radiography Diagnostic Testing: Clinical Impression(s) from Imaging Studies Chest X-Ray 10/05/23 01:00 IMPRESSION: No radiographic evidence of acute cardiopulmonary disease. Electronically Signed: Keith Hampton MD at 2:06 EST , Brain CT 10/05/23 01:57 IMPRESSION: No acute intracranial hemorrhage or other acute intracranial abnormality. Electronically Signed: Keith Hampton MD at 3:05 EST , Chest x-ray as interpreted by the emergency medicine physician reveals no acute infiltrate pneumothorax pleural effusion or widening of the mediastinum Discharge Plan Triage Chief Complaint: Hypertension ED Provider: Yasmani Haynes Dx/Rx/DC Orders Clinical Impression: Multiple sclerosis exacerbation, Hypertension Instructions: Multiple Sclerosis, Hypertension Dc Prescriptions: New oxycodone 20 mg tablet,oral only,ext.rel.12 hr 20 mg PO BID 5 Days Qty: 10 0RF prednisone 10 mg tablet 10 mg PO DAILY Qty: 63 0RF Rx Instructions: 60 mg p.o. daily for 3 days, 50 mg p.o. daily for 3 days, 40 mg p.o. daily for 3 days, 30 mg p.o. daily for 3 days, 20 mg p.o. daily for 3 days, 10 mg p.o. daily for 3 days. No Action gabapentin 800 mg tablet 800 mg PO TID baclofen 20 mg tablet 20 mg PO Q8H levothyroxine 50 mcg tablet 50 mcg PO DAILY Patient Comments: take 1 tablet by mouth once daily oxycodone 10 mg tablet 10 mg PO Q6H PRN Patient Comments: take 1 tablet by mouth twice a day if needed for pain cholecalciferol (vitamin D3) 5,000 UNIT tablet 5,000 unit PO DAILY Patient Comments: supplement clopidogrel 75 mg tablet 75 mg PO DAILY Qty: 90 3RF lisinopril 10 mg tablet 10 mg PO DAILY Qty: 30 11RF Primary Care Provider: Daron Benton Referrals: Daron Benton MD [Primary Care Provider] - Activity Restrictions/Additional Instructions: Please reach out to your neurologist regarding potential steroid infusions as your history and exam today indicate you are having an MS exacerbation. Cont inue all of your medications as previously directed but add the steroid and the extended release oxycodone for improved symptom control. Return to the ER should you have any further concerns or worsening of symptoms Disposition Disposition: Home, Self Care Discharge Date/Time: 10/05/23 08:23
[2023-10-05 07:57] VITALS: BP 226/94
[2023-10-05 08:07] VITALS: BP 214/82; RESP 16; O2SAT 96
== END 2023-10-05 08:23 | disposition home or self-care (01) ==
PROVIDERS: Emergency Provider Emergency Medicine; PCP Family Medicine; Visit Provider Emergency Medicine
DX: G35 Multiple sclerosis (principal); I10 Essential (primary) hypertension; I25.10 Atherosclerotic heart disease of native coronary artery without angina pectoris; E78.5 Hyperlipidemia, unspecified; G89.29 Other chronic pain; Z79.02 Long term (current) use of antithrombotics/antiplatelets; Z79.890 Hormone replacement therapy; Z79.899 Other long term (current) drug therapy; F17.210 Nicotine dependence, cigarettes, uncomplicated
CPT/HCPCS: 70450; 71045; 80048; 83735; 84484; 85025; 93005; 96361; 96374; 96375; 96376; 99285; J7030; A4216; J2405

== ENCOUNTER → 2023-10-22 | Outpatient (CLI) | payer MEDICARE, MEDICAID, SELFPAY ==
[2023-10-22 17:37] LABS: Body Fluid QC Type(s) BF1Q; CRYSTALS, BODY FLUID See PATH REV; Source- Body Fluid SYNOVIAL
[2023-10-23 13:48] LABS: Pathologist Review Reviewed
== END | disposition home or self-care (01) ==
PROVIDERS: PCP Family Medicine; Referring Provider Orthopaedic Surgery; Visit Provider Orthopaedic Surgery
DX: M25.462 Effusion, left knee (principal)
CPT/HCPCS: 89060

== ENCOUNTER 2023-11-15 11:19 | Inpatient (IN) | payer MEDICARE, MEDICAID, SELFPAY ==
[2023-11-15] VITALS (8 sets, daily range): BP systolic 83–130; BP diastolic 49–67; PULSE 54–68; RESP 12–22; TEMP 36.6–36.8; O2SAT 94–98; BMI 21.3
--- NOTE | 2023-11-15 11:59 | EDS_ITS ---
HPI History of Present Illness Chief Complaint: General Illness Informant: patient and family Narrative Narrative: Patient presents with nausea vomiting and diarrhea for about 4 5 days. Patient states she started with nausea and then vomiting. She had some diarrhea but it seems to be a little bit less. She has never had blood in the stool or vomitus. She states she is having trouble eating. She is getting some water in. She has been checking blood pressures at home and those have been low. But they have been adjusting her medicine because she has had very low blood pressures recently. She states she had some abdominal cramping yesterday but other than that she has not been hurting and she is not hurting now. She has less urine output but no dysuria. No odor. No fevers or chills. Only patient just recently were oxycodone was evidently increased for him to 20 mg. But she went back to 10 it sounds like because she cannot take the strong medications. [facility] Medical History Angina pectoris Bilateral carotid artery stenosis Chronic pain syndrome Essential (primary) hypertension Fatty liver GERD (gastroesophageal reflux disease) Goiter History of transient ischemic attack (TIA) HLD (hyperlipidemia) Multiple sclerosis Nonobstructive atherosclerosis of coronary artery Nonsustained paroxysmal supraventricular tachycardia Osteoarthritis Osteoporosis Peripheral vascular occlusive disease Psoriasis Psoriatic arthritis Thrombocytopenia Home Medications cholecalciferol (vitamin D3) 125 mcg (5,000 unit) tablet 5,000 unit PO DAILY supplement 12/16/13 [History Last Taken 07/16/19] gabapentin 800 mg tablet 800 mg PO TID MS 07/16/18 [History Last Taken 07/16/19] baclofen 20 mg tablet 20 mg PO Q8H 08/11/21 [History Last Taken 01/18/22] levothyroxine 50 mcg tablet 50 mcg PO DAILY 08/11/21 [History Last Taken 01/18/22] oxycodone 10 mg tablet 10 mg PO Q6H PRN 05/24/23 [History Last Taken Unknown] clopidogrel 75 mg tablet 75 mg PO DAILY dose increased, pt is OUT of med, please fill #90 TABLETS 06/01/23 [Rx Last Taken Unknown] oxycodone 20 mg tablet,crush resistant,extended release 12 hr 20 mg PO BID 5 days #10 tabs 10/05/23 [Rx Last Taken Unknown] prednisone 10 mg tablet 10 mg PO DAILY #63 tabs 10/05/23 [Rx Last Taken Unknown] lisinopril 5 mg tablet 5 mg PO DAILY #30 tabs 11/02/23 [Rx Last Taken Unknown] Allergy/AdvReac Type Severity Reaction Status Date / Time colestipol [From Colestid] Allergy Mild unknown Verified 11/15/23 11:27 pregabalin [From Lyrica] Allergy Mild Hives Verified 11/15/23 11:27 amitriptyline Allergy Rash Verified 11/15/23 11:27 temazepam [From Restoril] AdvReac Mild Nausea/Vom/ Verified 11/15/23 11:27 Diarrhea Antihistamines - Alkylamine AdvReac Nausea/Vom/ Verified 11/15/23 11:27 Diarrhea Antihistamines - Ethanolamine AdvReac Nausea/Vom/ Verified 11/15/23 11:27 Diarrhea Antihistamines - AdvReac Nausea/Vom/ Verified 11/15/23 11:27 Ethylenediamine Diarrhea Antihistamines - Piperazine AdvReac Nausea/Vom/ Verified 11/15/23 11:27 Diarrhea Antihistamines - Piperidine AdvReac Nausea/Vom/ Verified 11/15/23 11:27 Diarrhea aspirin AdvReac I'M ON Verified 11/15/23 11:27 BLOOD THINNERS codeine AdvReac Nausea Verified 11/15/23 11:27 Corticosteroids AdvReac Upset Verified 11/15/23 11:27 (Glucocorticoids) Stomach morphine AdvReac Nausea Verified 11/15/23 11:27 [id number] Reductase AdvReac Nausea Verified 11/15/23 11:27 Inhibitor [Svqgnfj-Gzq-Ehq Reductase Inhibitor] Family History Mother Cancer CAD (coronary artery disease) Brain tumor Grandfather CVA (cerebral vascular accident) Father CAD (coronary artery disease) Ruptured abdominal aortic aneurysm (AAA) Sister Brain aneurysm Surgical History Brain aneurysm Fracture of right lower leg H/O hemorrhoidectomy H/O: History of angioplasty of peripheral vessel History of angioplasty of peripheral vessel (07/11/19) History of section History of hemorrhoidectomy History of hysterectomy History of left breast biopsy History of left heart catheterization (01/25/15) History of left-sided carotid endarterectomy History of partial thyroidectomy (11/30/05) History of right-sided carotid endarterectomy S/P coil embolization of cerebral aneurysm S/P hysterectomy S/P insertion of iliac artery stent S/P thyroidectomy Stenosis of left subclavian artery Social History household members: none Smoking Status: Current every day smoker tobacco type: cigarettes alcohol intake: never caffeine: Yes Type: coffee and tea ROS ROS ED ROS Narrative A complete review of systems was performed and is negative except as documented in the history of present illness. Some specific details below. Constitutional: No recent fevers or chills. She does have some generalized malaise EYE: No visual complaints or pain. ENT: No difficulty swallowing. No swelling. No congestion or facial pain. CV: No chest pain or palpitations. Respiratory: No dyspnea. No hemoptysis. No difficulty taking breaths. She states she has had a little cough a couple times today but generally no pulmonary symptoms. GI: Please see history of present illness. : No frequency dysuria or hematuria. She does have a decreased volume of urine. Musculoskeletal: No recent trauma. No new pains. She has chronic joint and back pains due to osteoporosis and MS but this is chronic and unchanged. Skin: No rash. Nondiaphoretic. Neuro: No focal weakness or numbness. Endocrine: No polyuria or polydipsia. EXAM Physical Exam Narrative Exam Narrative: CONSTITUTIONAL: Patient is nontoxic in appearance. The patient looks comfortable. HEENT: No notable trauma. Mucous membranes do look dry. No sinus tenderness. No indication of pain with swallowing. EYES: No conjunctival injection. No proptosis. No pallor. CARDIOVASCULAR: Regular rate. Regular rhythm. No notable murmur. No JVD. RESPIRATORY: No respiratory distress. Breathing is unlabored. No wheezes. No rhonchi. No rales. No pain with a deep breath. Saturations are normal at 98% on room air. Although she reports an occasional cough she does not do this while I am in the room. GASTROINTESTINAL: Not distended. Bowel sounds are increased. No tenderness. No guarding. No rebound. No palpable mass. No bruit. GENITOURINARY: No tenderness over the bladder. No CVA tenderness. MUSCULOSKELETAL: Atraumatic. No peripheral edema. NEUROLOGICAL: Patient is alert and appropriate. No focal deficit noted. SKIN: No noted rashes. No diaphoresis. PSYCHIATRIC: Patient is calm. Mood is appropriate. Const Vital Signs: 11/15/23 11:22 11/15/23 11:28 11/15/23 11:29 Temperature 97.8 F 97.8 F Temperature Source Oral Oral Pulse Rate 68 62 Respiratory Rate 12 14 Respiratory Effort Normal Non-Labored Blood Pressure 83/61 L 98/61 Blood Pressure Mean 68 73 Pulse Ox 98 98 Oxygen Delivery Method Room Air Room Air 11/15/23 12:29 11/15/23 13:28 11/15/23 14:00 Temperature 97.8 F Temperature Source Oral Pulse Rate 63 56 L 54 L Respiratory Rate 19 H 18 12 Respiratory Effort Blood Pressure 106/50 L 113/67 98/56 L Blood Pressure Mean 68 82 70 Pulse Ox 96 96 94 Oxygen Delivery Method Room Air Room Air Room Air MDM MDM MDM Narrative Medical decision making narrative: My independent interpretation of her chest x-ray does show a little blunting the left costophrenic angle. Although she has a slight cough she has no sputum production dyspnea or hypoxia. I think this is more likely atelectasis. Final reading is similar to this as above. Patient CBC is overall normal. Patient's electrolytes do show an acute kidney injury with doubling of her creatinine to 2.5. Her sodium is a bit low at 130. She was given some IV fluids for this. She also has a high BUN to creatinine ratio insistent of dehydration. Patient's liver function test are normal. Patient's lipase is normal. I rechecked the patient. Her nausea is improved but not gone. But she has been able to drink some fluids. But she still feels a bit lightheaded getting up. Her blood pressure is still running anywhere from about 92-1 04 systolic. I think with her living alone, having acute kidney injury, still being ill from influenza A, lightheaded and low blood pressure admission is appropriate. Case was discussed with the hospitalist Lab Data Attestation: I reviewed the patient's lab results. Labs: Laboratory Results - last 24 hr 11/15/23 11:30 WBC 4.9 RBC 4.74 Hgb 13.7 Hct 40.9 MCV 86.3 MCH 28.9 MCHC 33.5 RDW Std Deviation 46.6 H RDW Coeff of David 14.6 Plt Count 164 MPV 10.1 Immature Gran % (Auto) 0.600 Neut % (Auto) 70.4 H Lymph % (Auto) 14.3 L Page % (Auto) 14.5 H Eos % (Auto) 0.0 Baso % (Auto) 0.2 Absolute Neuts (auto) 3.4 Absolute Lymphs (auto) 0.70 L Nucleated RBC % 0 Sodium 130 L Potassium 3.9 Chloride 97 L Carbon Dioxide 21.0 Anion Gap 12 BUN 64 H Creatinine 2.51 H Estim Creat Clear Calc 19.03 Est GFR (MDRD) Af Amer 24 L Est GFR (MDRD) Non-Af 20 L BUN/Creatinine Ratio 25.5 H Glucose 80 Calcium 8.1 L Total Bilirubin 0.30 AST 34 ALT 27 Alkaline Phosphatase 104 Total Protein 6.9 Albumin 3.3 Globulin 3.6 Albumin/Globulin Ratio 0.9 Lipase 60 Radiography Diagnostic Testing: Clinical Impression(s) from Imaging Studies Chest X-Ray 11/15/23 12:43 IMPRESSION: Minimal atelectasis and/or possible evolving pneumonia within the left lower lung. Electronically Signed: Niki Mojica MD at 13:03 EST , EKG Initial EKG: Comments: My independent interpretation of the patient's EKG shows sinus rhythm with a slightly bradycardic rate at 56. No ventricular ectopy. No acute ST elevation or depression. PA interval, QRS duration are normal. QTc is a little bit toward the longer end at 482 ms. Management Discussion w/another healthcare provider: Hospitalist Discharge Plan Triage Chief Complaint: General Illness ED Provider: Michele Kebede Dx/Rx/DC Orders Clinical Impression: Acute kidney injury, Influenza A, Acute hyponatremia, Dehydration Prescriptions: No Action gabapentin 800 mg tablet 800 mg PO TID baclofen 20 mg tablet 20 mg PO Q8H levothyroxine 50 mcg tablet 50 mcg PO DAILY Patient Comments: take 1 tablet by mouth once daily oxycodone 10 mg tablet 10 mg PO Q6H PRN Patient Comments: take 1 tablet by mouth twice a day if needed for pain lisinopril 5 mg tablet 5 mg PO DAILY Qty: 30 11RF cholecalciferol (vitamin D3) 5,000 UNIT tablet 5,000 unit PO DAILY Patient Comments: supplement oxycodone 20 mg tablet,oral only,ext.rel.12 hr 20 mg PO BID 5 Days Qty: 10 0RF prednisone 10 mg tablet 10 mg PO DAILY Qty: 63 0RF Rx Instructions: 60 mg p.o. daily for 3 days, 50 mg p.o. daily for 3 days, 40 mg p.o. daily for 3 days, 30 mg p.o. daily for 3 days, 20 mg p.o. daily for 3 days, 10 mg p.o. daily for 3 days. clopidogrel 75 mg tablet 75 mg PO DAILY Qty: 90 3RF Primary Care Provider: Daron Benton Referrals: Daron Benton MD [Primary Care Provider] - Disposition Disposition: Acute Care [facility]
[2023-11-15 12:08] LABS: Absolute Neutrophil Count 3.4 X10^3/uL (2.0-7.7); Basophil# 0.01 X10^3/uL; Basophil% 0.2 % (0-1); Hematocrit 40.9 % (37-47); Hemoglobin 13.7 g/dL (12.0-15.0); Lymphocyte % 14.3 % (19-41); Mean Corp Hgb Conc 33.5 g/dL (32-36); Mean Corpuscular Hgb 28.9 pg (27.0-32.0); Mean Corpuscular Volume 86.3 fL (81-99); Mean Platelet Vol. 10.1 fl (6.2-12.0); Monocyte# 0.71 X10^3/uL; Monocyte% 14.5 % (0-10); NRBC Flagged by Analyzer 0 % (0-5); Neutrophil # 3.44 X10^3/uL (2.7-7.7); Neutrophil % 70.4 % (47-70); Platelet Count 164 K/mm3 (150-450); RBC Distribution Width CV 14.6 % (11.6-14.6); RBC Distribution Width SD 46.6 fl (35.1-43.9); Red Blood Count 4.74 M/mm3 (4.2-5.4); White Blood Count 4.9 K/mm3 (4.4-11.0)
--- OUTSIDE RECORDS SUMMARY | 2023-11-15 12:14 | XMS RPT_ITS | CCD ---
Author Name Unknown Address [address] [place] [address] Organization [facility] Care Team Providers Care Entertainment Dancer Name Role Phone LYNNE LONGORIA Unavailable UnavailZHANE Mancera Unavailable Unavailable LYNNE LONGORIA Unavailable Unavailable ZHANE DE Unavailable Unavailable ZHANE DE Unavailable Unavailable Jacinda Benton Primary Care Provider [phone] MACEY MAIN Attending Unavailable JACINDA BENTON Primary Care Unavailable JACINDA BENTON Primary Care Unavailable MACEY MAIN Attending Unavailable CRISSY SCHMITZ Attending Unavailable JACINDA BENTON Primary Care Unavailable TYE BARNETT Attending Unavailable TYE BARNETT Attending Unavailable Allergies Allergy Classification Reported Allergen(s) Allergy Type Date of Onset Reaction(s) Facility (3 sources) Antihistamines; Translations: [ANTIHISTAMINES] Propensity to adverse reactions to drug (disorder) 04-28-20 04 [facility] Repository (2 sources) clopidogrel; Translations: [CLOPIDOGREL BISULFATE] Drug Allergy 12-18-19 12 [facility] Repository (8 sources) codeine; Translations: [CODEINE] Drug Allergy 04-28-20 04 [facility] Repository (2 sources) fenofibrate; Translations: [FENOFIBRATE MICRONIZED] Drug Allergy 04-27-20 11 [facility] Repository (7 sources) fentaNYL; Translations: [FENTANYL] Drug Allergy 02-19-20 12 [facility] Repository (2 sources) Hmg-Coa Reductase Inhibitors (Statins); Translations: [YALTLBQ-INW-PSV REDUCTASE INHIBITORS] Propensity to adverse reactions to drug (disorder) 04-27-20 11 [facility] Repository (8 sources) morphine; Translations: [MORPHINE] Drug Allergy 04-28-20 04 [facility] Repository (7 sources) predniSONE; Translations: [PREDNISONE] Drug Allergy 12-15-19 09 [facility] Repository (7 sources) salicylic acid; Translations: [SALICYLATES] Drug Allergy 12-04-19 09 [facility] Repository (1 source) Aspirin; Translations: [aspirin] Drug Allergy Ulcer (morphologic abnormality) [facility] (1 source) Colestipol; Translations: [colestipol] Drug Allergy [facility] (1 source) HMG-CoA reductase inhibitor; Translations: [statins] Drug allergy [facility] (5 sources) Amitriptyline Drug Allergy 03-12-20 19 Rash [facility] (5 sources) clopidogrel Drug Allergy 12-18-19 12 [facility] (5 sources) Fenofibrate Drug Allergy 04-27-20 11 [facility] (5 sources) Antihistamines, Diphenhydramine-T ype Drug Intolerance 09-17-20 [facility] Medications Current Medications Medication Drug Class(es) Dates Sig (Normalized) Sig (Original) baclofen 20 mg oral tablet (7 sources) gamma-Aminobutyric Acid-ergic Agonist Start: 10-05-2022 End: 07-15-2023 take 1 tablet by mouth every eight hours as needed for muscle spasms baclofen (Lioresal) 20 MG tablet Indications: Multiple sclerosis (HCC) Take 1 tablet (20 mg) by mouth every 8 hours as needed for muscle spasms. 90 tablet 5 06/15/2023 Active cholecalciferol 0.125 mg oral capsule (5 sources) Vitamin D Start: 02-27-2022 take 1 capsule by mouth in the morning cholecalciferol (Vitamin D-3) 125 MCG (5000 UT) capsule Take 125 mcg by mouth in the morning. 0 02/27/2022 Active clopidogrel 75 mg oral tablet (6 sources) P2Y12 Platelet Inhibitor Start: 08-15-2022 clopidogrel (Plavix) 75 MG tablet DULoxetine 30 mg delayed release oral capsule (6 sources) Serotonin and Norepinephrine Reuptake Inhibitor Start: 04-04-2023 End: 05-10-2023 take 1 capsule by mouth once daily DULoxetine (Cymbalta) [address] capsule take 1 capsule by mouth once daily DO NOT CRUSH OR CHEW 90 capsule 2 05/10/2023 Active gabapentin 800 mg oral tablet (7 sources) Anti-epileptic Agent Start: 10-05-2022 End: 07-04-2023 take 1 tablet by mouth three times daily gabapentin (Neurontin) 800 MG tablet Indications: Multiple sclerosis (HCC) Take 1 tablet (800 mg) by mouth 3 times daily. 90 tablet 5 06/04/2023 Active levothyroxine sodium 0.075 mg oral tablet (6 sources) l-Thyroxine Start: 11-07-2022 levothyroxine 75 mcg (0.075 mg) oral tablet Dose : 75 mcg = 1 tab(s), Oral, qDay, # 30 tab(s), 0 Refill(s) Start Date: 11/07/22 Status: Ordered Problems Active Problems Problem Classification Problem Date Documented Date Episodic/Chronic Essential hypertension (3 sources) Essential hypertension; Translations: [Essential (primary) hypertension] Onset: 10-05-2023 10-05-2023 Chronic Multiple sclerosis (5 sources) Multiple sclerosis; Translations: [Multiple sclerosis] Onset: 04-04-2023 06-04-2023 Chronic Occlusion or stenosis of precerebral arteries (3 sources) Occlusion and stenosis of bilateral carotid arteries; Translations: [Occlusion and stenosis of bilateral carotid arteries] Onset: 12-21-2017 Chronic Other and ill-defined cerebrovascular disease (2 sources) Cerebrovascular disease; Translations: [Cerebrovascular disease, unspecified] Onset: 10-05-2023 10-05-2023 Chronic Other and ill-defined cerebrovascular disease (1 source) Cerebrovascular disease, unspecified; Translations: [Cerebrovascular disease, unspecified] Onset: 10-05-2023 Chronic Peripheral and visceral atherosclerosis (2 sources) Peripheral vascular disease, unspecified; Translations: [Peripheral vascular disease, unspecified] Onset: 12-23-2016 Chronic Unclassified (1 source) Unknown / UNK(Unknown) Onset: 12-23-2016 Past or Other Problems Problem Classification Problem Date Documented Da te Episodic/Chronic Nonspecific chest pain (2 sources) Chest pain, unspecified; Translations: [Chest pain, unspecified] Onset: 04-04-2023 Episodic Other nervous system disorders (2 sources) Paresthesia of skin; Translations: [Paresthesia of skin] Onset: 04-04-2023 Episodic Results Test Name Value Interpretation Reference Range Facil ity Vital Signs Date Time Vital Sign Value Performing Clinician Faci lenny 11-09-2022 14:07-0500 Diastolic Blood Pressure Non-Invasive 66 1 TYE BARNETT MD [facility] 11-09-2022 14:07-0500 Heart rate 56 /min TYE BARNETT MD [facility] 11-09-2022 14:07-0500 Systolic Blood Pressure Non-Invasive 155 1 TYE BARNETT MD [facility] 11-09-2022 13:42-0500 Diastolic Blood Pressure Non-Invasive 69 1 TYE BARNETT MD [facility] 11-09-2022 13:42-0500 Heart rate 58 /min TYE BARNETT MD [facility] 11-09-2022 13:42-0500 Systolic Blood Pressure Non-Invasive 156 1 TYE BARNETT MD [facility] 11-09-2022 13:14-0500 Diastolic Blood Pressure Non-Invasive 86 1 TYE BARNETT MD [facility] 11-09-2022 13:14-0500 Heart rate 54 /min TYE BARNETT MD [facility] 11-09-2022 13:14-0500 Systolic Blood Pressure Non-Invasive 175 1 TYE BARNETT MD [facility] 11-09-2022 11:25-0500 Reason For Taking VItal Signs TYE BARNETT MD [facility] 11-09-2022 11:25-0500 Respiratory rate 16 /min TYE BARNETT MD [facility] 11-09-2022 11:03-0500 Respiratory rate 16 /min TYE BARNETT MD [facility] 11-09-2022 10:38-0500 Respiratory rate 16 /min TYE BARNETT MD [facility] 11-09-2022 06:29-0500 Blood Pressure Location TYE BARNETT MD [facility] 11-09-2022 06:29-0500 Body height 167.6 cm TYE BARNETT MD [facility] 11-09-2022 06:29-0500 Body temperature 97.7 [degF] TYE BARNETT MD [facility] 11-09-2022 06:29-0500 Body weight 54.8 kg TYE BARNETT MD [facility] 11-09-2022 06:29-0500 Body weight 19.51 kg/m2 TYE BARNETT MD [facility] Encounters Encounter Date Encounter Type Care Provider Facility Start: 10-26-2023 End: 10-26-2023 ambulatory TYE BARNETT Facility:A Start: 10-05-2023 End: 10-06-2023 ambulatory [facility] Start: 10-05-2023 End: 10-05-2023 Office outpatient visit 40 minutes Macey Main MD Work Phone: [facility] Procedures Date Procedure Procedure Detail Performing Clinician Start: 04-19-2016 Lipid 1996 panel - S isrrael or Plasma Macey Main MD Work Phone: Appendectomy TYE BARNETT MD Carotid endarterectomy TYE BARNETT MD Cholecystectomy TYE BARNETT MD Colonoscopy TYE BARNETT MD Dilation and curetta ge of uterus TYE BARNETT MD Hemorrhoid operation TYE MARTINEZ MD Intraocular lens imp lant (physical object) TYE BARNETT MD Ligation of fallopian tube Ella BARNETT MD Oophorectomy TYE BARNETT MD Specimen from breast obtained by biopsy (specimen) TYE BARNETT MD Thyroidectomy TYE Llanos Plan of Treatment Date Care Activity Detail Author Start: 02-09-2031 DTaP/Tdap/Td Vaccine s (3 - Td or Tdap) DTaP/Tdap/Td Vaccines (3 - Td or Tdap) [facility] Start: 07-20-2023 COVID-19 Vaccine ( season) COVID-19 Vaccine ( season) [facility] Start: 07-20-2023 Influenza vaccination Influenza Vacc ine (#1) [facility] Start: 04-19-2021 Lipid panel Lipid Panel [facility] Start: 2014 RSV Immunization age d 60 or older (1 - 1-dose 60+ series) RSV Immunization aged 60 or older (1 - 1-dose 60+ series) [facility] Start: 08-19-2009 Pneumococcal Vaccine : 65+ Years (2 - PCV) Pneumococcal Vaccine: 65+ Years (2 - PCV) [facility] Start: 2004 Zoster Vaccines (1 of 2) Zoster Vacc clifford (1 of 2) [facility] Start: 1994 Screening for malign ant neoplasm of breast Mammogram [facility] Start: 1972 Diabetes mellitus screening Diabetes Screening [facility] Start: 1972 Hepatitis C screening Hepatitis C Sc reening [facility] Start: 1966 Depression Screening Depression Scre ening [facility] Start: 1955 Medicare Advantage A nnual Wellness Visit (AWV) Medicare Advantage Annual Wellness Visit (AWV) [facility] Start: 1955 Screening for malign ant neoplasm of colon [facility] Start: 1955 Screening for osteoporosis Bone Dens ity Scan [facility] Start: 1955 Thyroid stimulating hormone measurement TSH Level [facility] Immunizations Immunization Date Immunization Notes Care Provider Fa cility 09-16-2022 influenza virus vacc ine, unspecified formulation Macey Main MD Work Phone: [facility] Payers Date Payer Category Payer Medicare [id number] 2022 Medicare [employer] [id number] 2022-Present [address] [place] [address] Medicare HMO [id number] 1955 Unknown [id number] 1955 Unknown [id number] Social History Date Type Detail Facility Tobacco smoking status MNIS Smokes tobacc o daily [facility] History of tobacco use Cigarette Smoker S [facility] Start: 04-04-2023 End: 10-05-2023 Alcohol intake Ex-drinker (finding) [facility] Start: 04-04-2023 History of Social function [facility] Start: 04-04-2023 Tobacco use panel [facility] Start: 1955 Sex Assigned At Not on file S [facility] Functional Status Date Assessment Result Facility 11-09-2022 Functional Status Ambulating in room [facility] 11-09-2022 Functional Status [facility] 11-09-2022 Functional Status Maintained [facility] Mental Status Date Assessment Result Facility 11-09-2022 Mental Status Orientation Oriented x 4 [facility] 11-09-2022 Mental Status [facility] 11-09-2022 Mental Status [facility] Clinical Notes 02-09-2021 to 10-05-2023 Macey Main MD - 10/05/2023 3:00 PM ESTTelephone Encounter - Yanely Kwon MA - 10/05/2023 12:58 PM ESTTelephone Encounter - Yanely Kwon MA - 10/05/2023 12:58 PM EST Note Date & Type Note Facility 10-05-2023 History of Present illness Narrative Images from the original note were not included. [facility] [address] [facility] [address] Dept: [phone] Dept Loc: [phone] Patient was seen today via Telehealth by agreement and consent. I used the following Telehealth technology: Audio capability only. Total length of call 30 minutes. The patient was offered and advised video for a more comprehensive evaluation, but the patient declined or was unable to use video. Patient location: Patient Location: Home. This patient encounter is appropriate and reasonable under the circumstances: transportation issues . The patient has been advised of the potential risks and limitations of this mode of treatment (including but not limited to the absence of in-person examination) and has agreed to be treated in a remote fashion in spite of them. Any and all of the patient's/patient's family's questions on this issue have been answered and I have made no promises or guarantees to the patient. The patient has also been advised to contact this office for worsening conditions or problems, and seek emergency medical treatment and/or call 911 if the patient deems either necessary. The patient stated that they are currently in the [facility]. If the patient is a minor, permission has been obtained by the parent or guardian for the patient to receive medical care at this visit. Visit type: Established patient Reason for Visit: Hospital Follow-up (/) Assessment and Plan 1. Multiple sclerosis (HCC) 2. Cerebrovascular disease, unspecified 3. Primary hypertension No follow-ups on file. Subjective HPI: She reports that she had headache, shoulder pain and vision disturbance. She reports that she has been sleepy. She reports that she has been having worsening of her balance for the past. She reports that her BP has been getting worse recently. She reports that she went to the ED in the early AM hours. She was given methylprednisolone 125 mg IV (per what she read to me over the phone) and narcotics. She had reduced VOSS and was sent home. She has been having worsening lower back and knee. She reports that she has had numbness on both sides of her body. REVIEW OF SYSTEMS: Review of Systems Constitutional: Negative for appetite change, chills, diaphoresis, fever and unexpected weight change. HENT: Negative for dental problem and mouth sores. Eyes: Positive for visual disturbance. Negative for discharge and itching. Respiratory: Negative for chest tightness. Cardiovascular: Negative for chest pain and leg swelling. Gastrointestinal: Negative for rectal pain and vomiting. Endocrine: Negative for polydipsia, polyphagia and polyuria. Genitourinary: Negative for decreased urine volume, flank pain and genital sores. Musculoskeletal: Negative for arthralgias. Skin: Negative for color change. Allergic/Immunologic: Negative for food allergies and immunocompromised state. Neurological: Positive for headaches. Hematological: Negative for adenopathy. Does not bruise/bleed easily. Psychiatric/Behavioral: Negative for agitation, behavioral problems, decreased concentration, sleep disturbance and suicidal ideas. Allergies Allergen Reactions Antihistamines, Diphenhydramine-Type Clopidogrel Other reaction(s): Other: See Comments Heartburn Codeine nausea Fenofibrate Other reaction(s): Intolerance Fentanyl Other reaction(s): Other: See Comments Sweating/ Flushing Morphine nausea and vomiting Prednisone Destroyed bone. Salicylates Amitriptyline Rash Current Outpatient Medications: baclofen (Lioresal) 20 MG tablet, Take 1 tablet (20 mg) by mouth every 8 hours as needed for muscle spasms., Disp: 90 tablet, Rfl: 5 cholecalciferol (Vitamin D-3) 125 MCG (5000 UT) capsule, Take 125 mcg by mouth in the morning., Disp: , Rfl: clopidogrel (Plavix) 75 MG tablet, , Disp: , Rfl: gabapentin (Neurontin) 800 MG tablet, Take 1 tablet (800 mg) by mouth 3 times daily., Disp: 90 tablet, Rfl: 5 levothyroxine (Synthroid, Levoxyl) 50 MCG tablet, , Disp: , Rfl: lisinopril 10 MG tablet, Take 10 mg by mouth daily., Disp: , Rfl: oxyCODONE (Roxicodone) 10 MG immediate release tablet, Take 10 mg by mouth 3 times daily as needed., Disp: , Rfl: DULoxetine (Cymbalta) [address] capsule, take 1 capsule by mouth once daily DO NOT CRUSH OR CHEW (Patient not taking: Reported on 10/05/2023), Disp: 90 capsule, Rfl: 2 metoprolol succinate XL (Toprol-XL) 25 MG 24 hr tablet, Take 25 mg by mouth in the morning., Disp: , Rfl: tiZANidine (Zanaflex) 4 MG tablet, Take 1 tablet (4 mg) by mouth in the morning and 1 tablet (4 mg) at noon and 1 tablet (4 mg) before bedtime. (Patient not taking: Reported on 10/05/2023), Disp: 30 tablet, Rfl: 5 Past Medical History: Diagnosis Date Aneurysm (HCC) CAD (coronary artery disease) Carotid stenosis Multiple sclerosis (HCC) Social History Tobacco Use Smoking status: Every Day Packs/day: .25 Types: Cigarettes Smokeless tobacco: Never Substance Use Topics Alcohol use: Not Currently Past Surgical History: Procedure Laterality Date CAROTID ENDARTERECTOMY No family history on file. Objective Vitals: There were no vitals taken for this visit. Neurologic: Mentation: Alert and oriented x 3 to person, place and time. Speech and Language: Speech and language normal Concentration and Attention: Concentration normal Memory: Memory normal Fund of Knowledge: Fund of knowledge normal Data Reviewed and Summarized DIAGNOSTIC TESTING CBC: Lab Results Component Value Date WBC 9.2 04/04/2023 RBC 5.07 04/04/2023 HGB 15.0 04/04/2023 HCT 44.5 04/04/2023 MCV 87.7 04/04/2023 MCH 29.6 04/04/2023 MCHC 33.8 04/04/2023 RDW 15.3 (H) 04/04/2023 PLT 184 04/04/2023 MPV 7.8 04/04/2023 CMP: Lab Results Component Value Date NA 138 04/04/2023 K 3.7 04/04/2023 CL 108 (H) 04/04/2023 CO2 26 04/04/2023 BUN 27 (H) 04/04/2023 CREATININE 0.85 04/04/2023 GLUCOSE 103 (H) 04/04/2023 PROT 6.9 04/04/2023 CALCIUM 8.7 04/04/2023 BILITOT 0.6 04/04/2023 ALKPHOS 92 04/04/2023 AST 23 04/04/2023 ALT 16 04/04/2023 BMP: Lab Results Component Value Date NA 138 04/04/2023 K 3.7 04/04/2023 CL 108 (H) 04/04/2023 CO2 26 04/04/2023 BUN 27 (H) 04/04/2023 CREATININE 0.85 04/04/2023 CALCIUM 8.7 04/04/2023 GLUCOSE 103 (H) 04/04/2023 PT/INR: Lab Results Component Value Date PROTIME 10.7 04/04/2023 INR 1.0 04/04/2023 PTT: Lab Results Component Value Date APTT 26.7 04/04/2023 [APTT} FLP: No results found for: CHLPL , TRIG , HDL , LDLCALC , LDLDIRECT TSH: No results found for: TSH VITAMIN B12: No results found for: [id number] No results found for: PHENYTOIN , PHENOBARB , VALPROATE , CBMZ No results found for: LEVETIRACETA , FERRITIN , CRP , DENNIS , ANCA FERRITIN: No results found for: FERRITIN @RESULTINGLABINFO@ No components found for: TOPIRA No results found for: CHRISTIANO , IMMUNOGLOBUL , OLIGOBANDS No results found for: [id number] , HEPCAB No results found for: CRP , ANATITER , ANCA ---- @LASTAPPOINTMENTTHISPROV@ ECG 12 lead SINUS BRADYCARDIA PROBABLE LEFT ATRIAL ABNORMALITY No previous ECG available for comparison Electronically Signed On 04-05-2023 7:42:10 EDT by Juvenal Benton Patient Name: ANGÉLICA WALLER : 1955 [facility]#: [id number] Exam Date/Time: 04/04/2023 15:32 Procedure: CT HEAD NECK ANGIO W AND WO IV CONTRAST Ordering Provider: SCHMITZ JOHN Reason For Exam: dizziness, and numbness EXAMINATION: CT HEAD WO IV CONTRAST, CT HEAD NECK ANGIO W AND WO IV CONTRAST EXAM DATE AND TIME: 04/04/2023 3:26 PM EDT INDICATION: Headache, numbness to face COMPARISON: None available. TECHNIQUE: Noncontrast CT head was obtained. Thin section CT angiography from the aortic arch to the skull base was performed for CT angiography neck and from the skull base to vertex for CT angiography head, following the intravenous administration of contrast (75 mL [id number]). MIP and volume rendered reformats were obtained using a [employer] workstation. Review of the axial source data and the reconstructed images was performed. Dose reduction was employed with automated exposure control. 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 Ventricles and sulci are normal in size and configuration for patients age. No extra axial collection. No acute intracranial hemorrhage within the limits of artifact. Scattered foci of hypoattenuation in the cerebral white matter are nonspecific but most compatible with microangiopathy. No CT evidence of acute large territorial infarct. No mass effect, cerebral edema, or midline shift. Atherosclerotic vascular calcifications visualized at the skull base. Imaged portions of the paranasal sinuses and mastoid air cells are well aerated. No depressed calvarial fracture. Bilateral lens replacements. 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 Takeoff of great vessels is otherwise patent.. Aortic arch is patent with mild atherosclerotic narrowing. A common carotid to common carotid artery graft is present and appears patent. Right common and external carotid: Normal. Right internal carotid: Minimal stenosis near the origin in the range of less than 30 percent. Left common and external carotid: Normal. Left internal carotid: Minimal stenosis near the origin in the range of less than 30 percent. Vertebral arteries: Patent bilaterally. The left vertebral artery is dominant.. Additional findings: Moderate emphysema. Multilevel degenerative changes of the imaged spine. CTA head: Intracranial internal carotid arteries: Mild atherosclerotic calcification narrowing of the left carotid siphon. Right carotid siphon is patent. Anterior cerebral arteries: Partially obscured secondary to the anterior territory coil mass. No residual aneurysm is seen. Visualized portions of the anterior cerebral arteries are patent. Middle cerebral arteries: Patent bilaterally Distal vertebral arteries: Patent bilaterally Basilar artery: Patent Posterior cerebral arteries: Patent bilaterally Aneurysm or vascular malformation: Anterior communicating artery region coil mass causes regional streak artifact. No residual aneurysm is clearly seen.. Additional findings: None. IMPRESSION: 1. 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 2. No acute intracranial hemorrhage or mass effect within the limits of artifact. 3. Surgical changes of a common carotid-common carotid artery graft which is patent. 4. 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 5. No hemodynamically significant narrowing of the major intracranial arteries at the [place] of [place]. 6. No hemodynamically significant narrowing of the major arteries of the neck. 7. Moderate emphysema. Report Dictated on Workstation: MICHAELLE Electronically Signed By: Brian Wilks Electronically Signed Date/Time: 04/04/2023 4:04 PM EDT IMPRESSION and PLAN: Problem List Items Addressed This Visit None Visit Diagnoses Multiple sclerosis (HCC) - Primary Cerebrovascular disease, unspecified Primary hypertension She is convinced that this attack is MS as it feels very much like her prior MS attaks. I will Rx prednisone tittrtion in case it is her MS. Continue Plavix and BP meds. As per Dr. Snyder I spent 30 minutes caring for this patient today, reviewing labs and records, seeing the patient, documenting in the record and arranging for studies. documented in this encounter [facility] [facility] 10-05-2023 Telephone encounter Note Patient has been scheduled and records are being faxed over. [facility] 10-05-2023 Miscellaneous Notes Patient has been scheduled and records are being faxed over. Get records from [facility]. OK to add her on at 3 PM as a real or a virtual visit Name of caller: Angélica Contact phone number: [phone] Relationship to Patient: patient Provider: DR Main Practice: [facility] Chief Complaint/Reason for Call: pt was at [facility] yesterday for an MS attack she is asking for IV steroids order infusion. She was started at the hospital and will need additional steroids. Please advise when order placed. Best time of day caller can be reached: AM Patient advised that office/PCP has 24-48 business hours to return their call: Yes documented in this encounter [facility] 10-05-2023 Telephone encounter Note Get records from [facility]. OK to add her on at 3 PM as a real or a virtual visit [facility] 10-05-2023 Telephone encounter Note Name of caller: Angélica Contact phone number: [phone] Relationship to Patient: patient Provider: DR Main Practice: [facility] Chief Complaint/Reason for Call: pt was at [facility] yesterday for an MS attack she is asking for IV steroids order infusion. She was started at the hospital and will need additional steroids. Please advise when order placed. Best time of day caller can be reached: AM Patient advised that office/PCP has 24-48 business hours to return their call: Yes [facility] 06-15-2023 Telephone encounter Note Medication name: baclofen (Lioresal) 20 MG tablet [[id number]] Order Details Dose: 20 mg Route: Oral Frequency: Every 8 hours PRN for muscle spasms Dispense Quantity: 90 tablet Refills: 5 Sig: Take 1 tablet (20 mg) by mouth every 8 hours as needed for muscle spasms. Start Date: 10/05/22 End Date: 04/04/23 Written Date: 10/05/22 Rx Expiration Date: 10/05/23 Associated Diagnoses: Multiple sclerosis (CMS/HCC) (HCC) [G35] Original Order: baclofen (Lioresal) 20 MG tablet [[id number]] Providers Ordering and Authorizing Provider: Macey Main MD NEGRA #: [id number] Ordering User: Macey Main MD Pharmacy [facility] #[id number] [address] NEGRA #: -- Date of last office visit: 04/04/23 Date of next office visit: None Date of last refill: (see medication tab): 10/05/22 Updated/Validated preferred pharmacy: Yes Patient instructed to contact the pharmacy prior to picking up the medication: Yes Last 2 Left [facility] 06-15-2023 Miscellaneous Notes Medication name: baclofen (Lioresal) 20 MG tablet [[id number]] Order Details Dose: 20 mg Route: Oral Frequency: Every 8 hours PRN for muscle spasms Dispense Quantity: 90 tablet Refills: 5 Sig: Take 1 tablet (20 mg) by mouth every 8 hours as needed for muscle spasms. Start Date: 10/05/22 End Date: 04/04/23 Written Date: 10/05/22 Rx Expiration Date: 10/05/23 Associated Diagnoses: Multiple sclerosis (CMS/HCC) (HCC) [G35] Original Order: baclofen (Lioresal) 20 MG tablet [[id number]] Providers Ordering and Authorizing Provider: Macey Main MD NEGRA #: [id number] Ordering User: Macey Main MD Pharmacy [facility] #[id number] [place] [address] [address] NEGRA #: -- Date of last office visit: 04/04/23 Date of next office visit: None Date of last refill: (see medication tab): 10/05/22 Updated/Validated preferred pharmacy: Yes Patient instructed to contact the pharmacy prior to picking up the medication: Yes documented in this encounter [facility] 06-04-2023 Telephone encounter Note Rx renewed [facility] 06-04-2023 Miscellaneous Notes Rx renewed Please advise. Medication name: gabapentin (Neurontin) 800 MG tablet Medication dosage: 800 mg (Miligrams Monthly quantity needed: 90 How many day supply requestin days Medication route: oral (PO) Medication administration time(s): 3 times a day (TID) Take 1 tablet (800 mg) by mouth in the morning and 1 tablet (800 mg) at noon and 1 tablet (800 mg) before bedtime If taking medication PRN, reason for taking medication: N/A If this is a controlled substance do you receive this or any other controlled medication from any other doctor or facility: N/A Ordering provider: Dr. Main Date of last office visit: 04/04/2023 Date of next office visit: N/A Date of last refill: (see medication tab): 10/05/2022 Updated/Validated preferred pharmacy: Yes Patient instructed to contact the pharmacy prior to picking up the medication: Yes documented in this encounter [facility] 06-04-2023 Telephone encounter Note Please advise. [facility] 06-04-2023 Telephone encounter Note Medication name: gabapentin (Neurontin) 800 MG tablet Medication dosage: 800 mg (Miligrams Monthly quantity needed: 90 How many day supply requestin days Medication route: oral (PO) Medication administration time(s): 3 times a day (TID) Take 1 tablet (800 mg) by mouth in the morning and 1 tablet (800 mg) at noon and 1 tablet (800 mg) before bedtime If taking medication PRN, reason for taking medication: N/A If this is a controlled substance do you receive this or any other controlled medication from any other doctor or facility: N/A Ordering provider: Dr. Main Date of last office visit: 04/04/2023 Date of next office visit: N/A Date of last refill: (see medication tab): 10/05/2022 Updated/Validated preferred pharmacy: Yes Patient instructed to contact the pharmacy prior to picking up the medication: Yes [facility] 11-09-2022 Hospital Discharge instructions Patient Education 11/09/2022 12:48:32 Angiogram, Care After Angiogram, Care After This sheet gives you information about how to care for yourself after your procedure. Your health care provider may also give you more specific instructions. If you have problems or questions, contact your health care provider. What can I expect after the procedure? After the procedure, it is common to have bruising and tenderness at the catheter insertion area. Follow these instructions at home: Insertion site care Follow instructions from your health care provider about how to take care of your insertion site. Make sure you: ?Wash your hands with soap and water before you change your bandage (dressing). If soap and water are not available, use hand plant electrician. ?Change your dressing as told by your health care provider. ?Leave stitches (sutures), skin glue, or adhesive strips in place. These skin closures may need to stay in place for 2 weeks or longer. If adhesive strip edges start to loosen and curl up, you may trim the loose edges. Do not remove adhesive strips completely unless your health care provider tells you to do that. Do not take baths, swim, or use a hot tub until your health care provider approves. You may shower 24 48 hours after the procedure or as told by your health care provider. ?Gently wash the site with plain soap and water. ?Pat the area dry with a clean towel. ?Do not rub the site. This may cause bleeding. Do not apply powder or lotion to the site. Keep the site clean and dry. Check your insertion site every day for signs of infection. Check for: ?Redness, swelling, or pain. ?Fluid or blood. ?Warmth. ?Pus or a bad smell. Activity Rest as told by your health care provider, usually for 1 2 days. Do not lift anything that is heavier than 10 lbs. (4.5 kg) or as told by your health care provider. Do not drive for 24 hours if you were given a medicine to help you relax (sedative). Do not drive or use heavy machinery while taking prescription pain medicine. General instructions Return to your normal activities as told by your health care provider, usually in about a week. Ask your health care provider what activities are safe for you. If the catheter site starts bleeding, lie flat and put pressure on the site. If the bleeding does not stop, get help right away. This is a medical emergency. Drink enough fluid to keep your urine clear or pale yellow. This helps flush the contrast dye from your body. Take vobe-ktk-nrgwskk and prescription medicines only as told by your health care provider. Keep all follow-up visits as told by your health care provider. This is important. Contact a health care provider if: You have a fever or chills. You have redness, swelling, or pain around your insertion site. You have fluid or blood coming from your insertion site. The insertion site feels warm to the touch. You have pus or a bad smell coming from your insertion site. You have bruising around the insertion site. You notice blood collecting in the tissue around the catheter site (hematoma). The hematoma may be painful to the touch. Get help right away if: You have severe pain at the catheter insertion area. The catheter insertion area swells very fast. The catheter insertion area is bleeding, and the bleeding does not stop when you hold steady pressure on the area. The area near or just beyond the catheter insertion site becomes pale, cool, tingly, or numb. These symptoms may represent a serious problem that is an emergency. Do not wait to see if the symptoms will go away. Get medical help right away. Call your local emergency services (911 in the [place] Do not drive yourself to the hospital. Summary After the procedure, it is common to have bruising and tenderness at the catheter insertion area. After the procedure, it is important to rest and drink plenty of fluids. Do not take baths, swim, or use a hot tub until your health care provider says it is okay to do so. You may shower 24 48 hours after the procedure or as told by your health care provider. If the catheter site starts bleeding, lie flat and put pressure on the site. If the bleeding does not stop, get help right away. This is a medical emergency. This information is not intended to replace advice given to you by your health care provider. Make sure you discuss any questions you have with your health care provider. Document Released: 05/24/2006 Document Revised: 10/18/2018 Document Reviewed: 10/10/2017 All [employer] Products Patient Education 2020 [employer]. 11/09/2022 12:48:21 Moderate Conscious Sedation, Adult, Care After Moderate Conscious Sedation, Adult, Care After These instructions provide you with information about caring for yourself after your procedure. Your health care provider may also give you more specific instructions. Your treatment has been planned according to current medical practices, but problems sometimes occur. Call your health care provider if you have any problems or questions after your procedure. What can I expect after the procedure? After your procedure, it is common: To feel sleepy for several hours. To feel clumsy and have poor balance for several hours. To have poor judgment for several hours. To vomit if you eat too soon. Follow these instructions at home: For at least 24 hours after the procedure: Do not: ?Participate in activities where you could fall or become injured. ?Drive. ?Use heavy machinery. ?Drink alcohol. ?Take sleeping pills or medicines that cause drowsiness. ?Make important decisions or sign legal documents. ?Take care of children on your own. Rest. Eating and drinking Follow the diet recommended by your health care provider. If you vomit: ?Drink water, juice, or soup when you can drink without vomiting. ?Make sure you have little or no nausea before eating solid foods. General instructions Have a responsible adult stay with you until you are awake and alert. Take yefz-bvs-hkqjzzg and prescription medicines only as told by your health care provider. If you smoke, do not smoke without supervision. Keep all follow-up visits as told by your health care provider. This is important. Contact a health care provider if: You keep feeling nauseous or you keep vomiting. You feel light-headed. You develop a rash. You have a fever. Get help right away if: You have trouble breathing. This information is not intended to replace advice given to you by your health care provider. Make sure you discuss any questions you have with your health care provider. Document Released: 08/26/2014 Document Revised: 10/18/2018 Document Reviewed: 02/24/2017 [employer] Patient Education 2020 [employer] Follow Up Care 10/27/2022 15:58:56 With:TYE BARNETT MD, [facility], Surgery, Vascular Surgeons Address: [facility] [address] [place] [id number] When: Unknown Comments:Follow-up as scheduled [facility] 11-09-2022 Summary of episode note Discharge Instructions Thank you for allowing [facility] to assist you with your healthcare needs. The following is important discharge information regarding your hospital visit. What to do next Follow Up Appointments Follow Up with TYE BARNETT MD, [facility], Surgery, Vascular Surgeons When Why: Follow-up as scheduled Where: [facility] [address] [facility] [address] [place] [address] The Following Activity and Diet Have Been Ordered for You Discharge Activity - Ordered -- Follow the post-operative/post-procedure activity instructions provided by your physician's office., 11/09/22 11:24:00 EST Discharge Diet - Ordered -- Follow the post-operative/post-procedure diet instructions provided by your physician's office., 11/09/22 11:24:00 EST The Following Equipment Has Been Ordered for You Discharge Home Equipment Discharge Wound Care - Ordered -- Follow the post-operative/post-procedure wound care instructions provided by your physician's office., 11/09/22 11:24:00 EST Allergies Colestid Statins antihistamines aspirin (Ulcer) codeine morphine (Vomiting) Medications Please ask your primary doctor or pharmacist before taking any other medication not listed, including over the counter drugs, herbal medications, vitamins and or supplements as they may interact with your home medications. What How Much When Instructions Last Dose Unchanged baclofen (baclofen 20 mg oral tablet) 1 tab(s) by mouth Three (3) times a day Unchanged cholecalciferol (Vitamin D3) 125 Microgram by mouth Once a day Unchanged clopidogrel (Plavix 75 mg oral tablet) 1 tab(s) by mouth Once a day Unchanged gabapentin (Neurontin 800 mg oral tablet) 1 tab(s) by mouth Three (3) times a day Unchanged levothyroxine (levothyroxine 75 mcg (0.075 mg) oral tablet) 1 tab(s) by mouth Once a day Unchanged magnesium oxide (Magnesium 250 mg tablet) 1 tab(s) by mouth Once a day as needed for Control symptoms Unchanged metoprolol (metoprolol succinate 25 mg oral TABLET extended release) 1 tab(s) by mouth Once a day Do not crush or chew (controlled release) Unchanged oxyCODONE (oxyCODONE 5 mg oral tablet ( IMMEDIATE release )) 1 tab(s) by mouth Two (2) times a day Please take this list to your next doctor s visit. Bring all medications you take, including over the counter medications, herbals and other supplements with you to your doctor s visit. Patients and families are reminded to discard old lists and to update any records with all medication providers or retail pharmacies. Education Materials Angiogram, Care After This sheet gives you information about how to care for yourself after your procedure. Your health care provider may also give you more specific instructions. If you have problems or questions, contact your health care provider. What can I expect after the procedure? After the procedure, it is common to have bruising and tenderness at the catheter insertion area. Follow these instructions at home: Insertion site care Follow instructions from your health care provider about how to take care of your insertion site. Make sure you: ? Wash your hands with soap and water before you change your bandage (dressing). If soap and water are not available, use hand plant electrician. ? Change your dressing as told by your health care provider. ? Leave stitches (sutures), skin glue, or adhesive strips in place. These skin closures may need to stay in place for 2 weeks or longer. If adhesive strip edges start to loosen and curl up, you may trim the loose edges. Do not remove adhesive strips completely unless your health care provider tells you to do that. Do not take baths, swim, or use a hot tub until your health care provider approves. You may shower 24 48 hours after the procedure or as told by your health care provider. ? Gently wash the site with plain soap and water. ? Pat the area dry with a clean towel. ? Do not rub the site. This may cause bleeding. Do not apply powder or lotion to the site. Keep the site clean and dry. Check your insertion site every day for signs of infection. Check for: ? Redness, swelling, or pain. ? Fluid or blood. ? Warmth. ? Pus or a bad smell. Activity Rest as told by your health care provider, usually for 1 2 days. Do not lift anything that is heavier than 10 lbs. (4.5 kg) or as told by your health care provider. Do not drive for 24 hours if you were given a medicine to help you relax (sedative). Do not drive or use heavy machinery while taking prescription pain medicine. General instructions Return to your normal activities as told by your health care provider, usually in about a week. Ask your health care provider what activities are safe for you. If the catheter site starts bleeding, lie flat and put pressure on the site. If the bleeding does not stop, get help right away. This is a medical emergency. Drink enough fluid to keep your urine clear or pale yellow. This helps flush the contrast dye from your body. Take xybx-uem-hfwumog and prescription medicines only as told by your health care provider. Keep all follow-up visits as told by your health care provider. This is important. Contact a health care provider if: You have a fever or chills. You have redness, swelling, or pain around your insertion site. You have fluid or blood coming from your insertion site. The insertion site feels warm to the touch. You have pus or a bad smell coming from your insertion site. You have bruising around the insertion site. You notice blood collecting in the tissue around the catheter site (hematoma). The hematoma may be painful to the touch. Get help right away if: You have severe pain at the catheter insertion area. The catheter insertion area swells very fast. The catheter insertion area is bleeding, and the bleeding does not stop when you hold steady pressure on the area. The area near or just beyond the catheter insertion site becomes pale, cool, tingly, or numb. These symptoms may represent a serious problem that is an emergency. Do not wait to see if the symptoms will go away. Get medical help right away. Call your local emergency services (911 in the [place] Do not drive yourself to the hospital. Summary After the procedure, it is common to have bruising and tenderness at the catheter insertion area. After the procedure, it is important to rest and drink plenty of fluids. Do not take baths, swim, or use a hot tub until your health care provider says it is okay to do so. You may shower 24 48 hours after the procedure or as told by your health care provider. If the catheter site starts bleeding, lie flat and put pressure on the site. If the bleeding does not stop, get help right away. This is a medical emergency. This information is not intended to replace advice given to you by your health care provider. Make sure you discuss any questions you have with your health care provider. Document Released: 05/24/2006 Document Revised: 10/18/2018 Document Reviewed: 10/10/2017 All Copy Products Patient Education [employer]. Moderate Conscious Sedation, Adult, Care After These instructions provide you with information about caring for yourself after your procedure. Your health care provider may also give you more specific instructions. Your treatment has been planned according to current medical practices, but problems sometimes occur. Call your health care provider if you have any problems or questions after your procedure. What can I expect after the procedure? After your procedure, it is common: To feel sleepy for several hours. To feel clumsy and have poor balance for several hours. To have poor judgment for several hours. To vomit if you eat too soon. Follow these instructions at home: For at least 24 hours after the procedure: Do not: ? Participate in activities where you could fall or become injured. ? Drive. ? Use heavy machinery. ? Drink alcohol. ? Take sleeping pills or medicines that cause drowsiness. ? Make important decisions or sign legal documents. ? Take care of children on your own. Rest. Eating and drinking Follow the diet recommended by your health care provider. If you vomit: ? Drink water, juice, or soup when you can drink without vomiting. ? Make sure you have little or no nausea before eating solid foods. General instructions Have a responsible adult stay with you until you are awake and alert. Take gzcj-eyw-fvctpdy and prescription medicines only as told by your health care provider. If you smoke, do not smoke without supervision. Keep all follow-up visits as told by your health care provider. This is important. Contact a health care provider if: You keep feeling nauseous or you keep vomiting. You feel light-headed. You develop a rash. You have a fever. Get help right away if: You have trouble breathing. This information is not intended to replace advice given to you by your health care provider. Make sure you discuss any questions you have with your health care provider. Document Released: 08/26/2014 Document Revised: 10/18/2018 Document Reviewed: 02/24/2017 All Copy Products Patient Education [employer] Additional Information VACCINATE! IT SAVES LIVES! Members of the community who have not yet received the COVID-19 vaccine and would like to receive it can visit one of [facility] vaccine clinics. There are many vaccine clinic locations within the [facility]. For locations and available times, please visit [email or web address].[place].gov/. It is important to note that some COVID mobile vaccine clinics are held outdoors and may be canceled in rainy or stormy conditions. To learn more about pediatric vaccinations (ages 5-11), we invite you to visit the [employer] [facility] webpage. [email or web address] [email or web address] To learn more about the COVID-19 vaccine, we invite you to visit the [employer] website for a list of frequently asked questions. [email or web address]/[email or web address] [email or web address]-xsh-[email or web address]/[email or web address]-Hkn quently_[email or web address]-Questions.pdf [facility] Patient Portal Access Instructions: Stay connected with your healthcare team and access your personal medical information anytime with the [facility] Patient Portal.If you would like a full copy of your medical records, please contact the [facility] Medical Records Department, Sunday through Sunday between 8a.m. and 4:30p.m. Please follow the directions below to access the portal: 1.Access the email account you provided upon registration to the hospital.2.Look for an invitation email from [facility].3.Open the email and access the invitation link: Accept Invitation to [employer].Fill in the required duarte to create your account. Sign into www.[employer] with your username and password that you created in the above steps to stay up to date. You can then view a summary of results, a summary of your visits, and the ability to download your summaries to your computer or send the information securely to a physician. Remember that your healthcare information is confidential, so carefully consider who you will allow to register on the [facility] Patient Portal for access to your information. You can also access the [employer] Patient Portal on the Code [employer] jennifer. Simply click on Health Records under Health Data and then click on the [employer] logo. HOW TO SAFELY DISPOSE OF PRESCRIPTION MEDICATIONS Please use one of the following methods to safely dispose of your unused medications. 1.Use a drug disposal kit: the drug disposal pouch allows you to safely discard your old and unused drugs. Ask your nurse to give you one when you are discharged.2.Visit a local take-back location: Many local pharmacies and police departments have programs that collect old and unwanted prescription drugs. Call your local pharmacy or go to [email or web address] to find one close to you.3.Make use of household items: Use cat litter or old coffee grounds to dispose medications if other options are not available. Mix your drugs with these household products, seal them in an airtight container and throw it into the garbage. Call [facility]: [phone] to be sure your drugs can be disposed of in this way. Some medicines may require a different approach.4.Never flush your medications down the toilet. IF YOU HAVE BEEN PRESCRIBED AN OPIOID FOR PAIN If you have been prescribed an opioid (such as hydrocodone, oxycodone or morphine), it is critical to understand the possible side effects and risks of opioid pain medications. Even when taken as directed, opioids can have several side effects including: Tolerance, meaning you might need to take more of a medication for the same pain relief. Nausea, vomiting and/or constipation. Sleepiness, dizziness, dry mouth, confusion, depression or itching. Physical dependence, meaning you have withdrawal symptoms when a medication is stopped, can develop within a few days. KNOW YOUR RESPONSIBILITIES It is important to know exactly how much and how often to take the opioid pain medications you are prescribed. Never take opioids in higher amounts or more often than prescribed. Do not combine opioids with alcohol or other drugs that cause drowsiness, such as benzodiazepines, also known as benzos, including diazepam and alprazolam, muscle relaxants or sleep aids. Never sell or share prescription opioids. This is illegal. Store opioids in a secure place and out of reach of others (including children, family, friends and visitors). The last page of this document has been signed and retained as a CHART COPY. Signatures Patient Education Materials Angiogram, Care After Moderate Conscious Sedation, Adult, Care After Medication Leaflets My discharge plan and instructions have been reviewed and explained to me and ICHRISTIN LINDA understand my current condition and have read and understand these discharge instructions. I have received a written copy of the plan/instructions. If I have questions, I am aware that I should contact my doctor. 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 [facility] 11-09-2022 Note ORIGINAL Images acquired, not reported on this accession number. [facility] 04-12-2021 Note HNO ID: [id number] Author: TOMMY Flores) Service: ? Author Type: Threading Machine Operator Type: Progress Notes Filed: 04/12/2021 2:14 PM Note Text: Radiology Service Progress Note DATE OF SERVICE: April 12, 2021 TIME: 2:13 PM PATIENT IDENTITY VERIFICATION COMPLETED USING TWO (2) STANDARD IDENTIFIERS: Name and Date of confirmed by patient verbally. FALL SCREENING: Has the patient had 2 falls in the last year or 1 fall with injury or currently using an Ambulatory Assistive Device (Walker, Cane, Wheelchair, Crutches, etc.)? No PATIENT GENDER DATA: Female. status: : No status: NO. PATIENT RELEVANT IMPLANT DATA REVIEWED: Yes ALLERGIES: Reviewed and unchanged CONTRAST ALLERGY: NO. EXAM: MRI - CONTRAST TYPE: GROUP II PERIPHERAL IV DATA: Ambulatory: A peripheral IV was started in the Right antecubital site with a Angio cath: 22 gauge. RADIOLOGY DEPARTMENT: MR; Exam(s) Completed: Head: Multiple Sclerosis SIGNATURE: RT Sandra(Mayda) PATIENT NAME: Angélica Waller DATE: April 12, 2021 TIME: 2:13 PM [facility] 02-09-2021 Note HNO ID: [id number] Author: Alexander Regaaldo Service: ? Author Type: Physician Type: Progress Notes Filed: 02/09/2021 3:06 PM Note Text: Express Care Triage Note: Patient presents to the express care after pinching her thumb in a door. She cut through the right thumb nail. There is a transverse gaping laceration through the mid right thumbnail and extending into the skin on both sides. Referred to the ER for further evaluation and treatment of wound at high risk for bone exposure. [facility] Evaluation + Plan note No data available for this section [facility] documented in this encounter [facility] Diagnosis Multiple sclerosis (HCC) Multiple sclerosis [facility] in this encounter [facility] Diagnosis Multiple sclerosis (HCC)- Primary Multiple sclerosis Cerebrovascular disease, unspecified Primary hypertension Unspecified essential hypertension documented in this encounter [facility] Health Summary Purpose Family History No Family History Records FoundNo Family History Records FoundNo Family History Records FoundNo Family History Records FoundNo Family History Records Found Advance Directives No Advanced Directives Records FoundNo Advanced Directives Records FoundNo Advanced Directives Records FoundNo Advanced Directives Records FoundNo Advanced Directives Records Found Additional Source Comments INFORMATION SOURCE (unrecogn ized section and content) DATE CREATED AUTHOR AUTHOR'S ORGANIZ ATION 05/13/2018 [facility] DATE CREATED AUTHOR AUTHOR'S ORGANIZ ATION 12/13/2021 [facility] DATE CREATED AUTHOR AUTHOR'S ORGANIZ ATION 10/10/2023 [facility] DATE CREATED AUTHOR AUTHOR'S ORGANIZ ATION 11/03/2023 [facility] ([place]) Care Team (unrecognized sect ion and content) Care Team Related Persons Name: BHAVIK HONG Name: LOLA HONG Reason for Visit (unrecogniz ed section and content) Reason Onset Date Comments Med Refill 06/04/2023 Reason Onset Date Comments Med Refill 06/15/2023 Reason Onset Date Comments Orders 10/05/2023 Reason Comments Hospital Follow-up Care Teams (unrecognized sec tion and content) Entertainment Dancer Relationship Specialty Start Date End Date Jacinda Benton [address] [place] [phone] PCP - General 06/23/20 Entertainment Dancer Relationship Specialty Start Date End Date Jacinda Benton [address] [facility] [address] [place] [phone] PCP - General 06/23/20 Entertainment Dancer Relationship Specialty Start Date End Date Jacinda Benton [address] [facility] [address] [place] [phone] PCP - General 06/23/20 FOR RECORDS PERTAINING TO PATIENTS WHO ARE OR HAVE BEEN ENROLLED IN A CHEMICAL DEPENDENCY/SUBSTANCEABUSE PROGRAM, SOME INFORMATION MAY BE OMITTED. This clinical summary was aggregated from multiple sources. Caution should be exercised in using it in the provision of clinical care. This summary normalizes information from multiple sources, and as a consequence, information in this document may materially change the coding, format and clinical context of patient data. In addition, data may be omitted in some cases. CLINICAL DECISIONS SHOULD BE BASED ON THE PRIMARY CLINICAL RECORDS. [facility] [employer] [facility]. provides no warranty or guarantee of the accuracy or completeness of information in this document.
[2023-11-15] MEDS: 0.9% Normal Saline (1000mL) 1,000 ML 1000 ML IV (12:22)
[2023-11-15] MEDS: Ondansetron 4 MG/2 ML Vial IV (12:22)
[2023-11-15 12:30] LABS: ALB/GLOB Ratio 0.9 RATIO (0.9-2.4); AST(SGOT) 34 U/L (15-37); Alanine Aminotransfer ALT/SGPT 27 U/L (13-56); Albumin, Serum 3.3 g/dL (3.2-5.0); Alkaline Phosphatase 104 U/L (45-117); Anion Gap 12 (5-15); BUN 64 mg/dL (7-18); BUN/Creat Ratio 25.5 RATIO (10-20); Calcium,Total 8.1 mg/dL (8.5-10.1); Chloride 97 mmol/L (98-107); Creatinine, Serum 2.51 mg/dL (0.55-1.02); EST Glomerular Filtration Rate 20 mL/min (>60); Est Glom Filt Rate - Afr Amer 24 mL/min (>60); Estimated Creatinine Clearance 19.03 ml/min; Globulin 3.6 g/dL (2.2-4.2); Glucose 80 mg/dL (74-106); Lipase 60 U/L (13-75); Potassium 3.9 mmol/L (3.5-5.1); Protein, Total 6.9 g/dL (6.4-8.2); Sodium Level 130 mmol/L (136-145)
--- NOTE | 2023-11-15 12:43 | RAD_ITS ---
INDICATION: cough EXAMINATION/TECHNIQUE: X-RAY - XR Chest 1 View COMPARISON: October 05, 2023 FINDINGS: LINES/DEVICES: None. LUNGS: There are few ill-defined opacities within the left lower lung. No pneumothorax. MEDIASTINUM AND CARDIOVASCULAR STRUCTURES: Cardiac silhouette not enlarged. Central airways and mediastinal contour are unremarkable. BONES AND SOFT TISSUES: Unremarkable. RAD/Chest 1 View (Portable) IMPRESSION: Minimal atelectasis and/or possible evolving pneumonia within the left lower lung. Electronically Signed: Niki Mojica MD at 13:03 EST ,
--- NOTE | 2023-11-15 15:12 | HP.PCM.HOS_ITS ---
HPI - General General Date of Admission: 11/15/23 Date of Service: 11/15/23 Chief Complaint: Poor intake, malaise, fatigue, weakness, N/V/D HPI Narrative The patient is a 68 y/o F w/ PMHx: Hx Cerebral aneurysm, Chronic pain syndrome, HTN, HLD, Hx TIA, Multiple Sclerosis, Nonobstructive CAD, Psoriatic arthritis, PAD, NS SVT, GERD, Hypothyroidism, Carotid disease, Tobacco use who presents to the [facility] ED on 11/15/23 with history of 4 to 5 days of initially nausea followed by bouts of emesis and loose stools although this has been decreasing with poor oral intake although she has still been attempting to have good water intake but it has not been at her baseline and she has had low blood pressures when she is checked them at home with recent issues of the last couple months with decreasing blood pressures prompting decreases in her medications with mild abdominal cramping the day prior but no pain nor any fevers or chills prompting eventual ED evaluation. Patient does have chronic pain syndrome of note and recently did have her oxycodone increased to 20 mg but returned back down to 10 mg because she noted that it was too strong. Workup in the ED included T97.8, heart rate 68, BP initially 83/61 rise in the ED up to 113/67 however most recently 98/56, respiratory rate 12, 98% on room air initially with most recent repeat respiratory rate 12, 94% on room air and heart rate 54, CBC with WBC 4.9, hemoglobin 13.7, platelet 164 with lymphopenia, CMP with sodium 130, chloride 97, BUN/creatinine 64/2.51, hepatic profile unremarkable, lipase 60, chest x-ray with minimal atelectasis and/or possible evolving pneumonia within the left lower lung, rapid SARS COVID, RSV and influenza with a positive influenza A, EKG with sinus bradycardia with no acute evidence of ischemia however QTc on the longer end at 42 MS. In the ED patient ministered Zofran 4 mg IV x 1 and 1 L normal saline. [facility] Medical History Angina pectoris Bilateral carotid artery stenosis Chronic pain syndrome Essential (primary) hypertension Fatty liver GERD (gastroesophageal reflux disease) Goiter History of transient ischemic attack (TIA) HLD (hyperlipidemia) Multiple sclerosis Nonobstructive atherosclerosis of coronary artery Nonsustained paroxysmal supraventricular tachycardia Osteoarthritis Osteoporosis Peripheral vascular occlusive disease Psoriasis Psoriatic arthritis Thrombocytopenia Home Medications cholecalciferol (vitamin D3) 125 mcg (5,000 unit) tablet 5,000 unit PO DAILY supplement 12/16/13 [History Last Taken 07/16/19] gabapentin 800 mg tablet 800 mg PO TID MS 07/16/18 [History Last Taken 07/16/19] baclofen 20 mg tablet 20 mg PO Q8H 08/11/21 [History Last Taken 01/18/22] levothyroxine 50 mcg tablet 50 mcg PO DAILY 08/11/21 [History Last Taken 01/18/22] oxycodone 10 mg tablet 10 mg PO Q6H PRN 05/24/23 [History Last Taken Unknown] clopidogrel 75 mg tablet 75 mg PO DAILY dose increased, pt is OUT of med, please fill #90 TABLETS 06/01/23 [Rx Last Taken Unknown] lisinopril 5 mg tablet 5 mg PO DAILY #30 tabs 11/02/23 [Rx Last Taken Unknown] Allergy/AdvReac Type Severity Reaction Status Date / Time colestipol [From Colestid] Allergy Mild unknown Verified 11/15/23 11:27 pregabalin [From Lyrica] Allergy Mild Hives Verified 11/15/23 11:27 amitriptyline Allergy Rash Verified 11/15/23 11:27 temazepam [From Restoril] AdvReac Mild Nausea/Vom/ Verified 11/15/23 11:27 Diarrhea Antihistamines - Alkylamine AdvReac Nausea/Vom/ Verified 11/15/23 11:27 Diarrhea Antihistamines - Ethanolamine AdvReac Nausea/Vom/ Verified 11/15/23 11:27 Diarrhea Antihistamines - AdvReac Nausea/Vom/ Verified 11/15/23 11:27 Ethylenediamine Diarrhea Antihistamines - Piperazine AdvReac Nausea/Vom/ Verified 11/15/23 11:27 Diarrhea Antihistamines - Piperidine AdvReac Nausea/Vom/ Verified 11/15/23 11:27 Diarrhea aspirin AdvReac I'M ON Verified 11/15/23 11:27 BLOOD THINNERS codeine AdvReac Nausea Verified 11/15/23 11:27 Corticosteroids AdvReac Upset Verified 11/15/23 11:27 (Glucocorticoids) Stomach morphine AdvReac Nausea Verified 11/15/23 11:27 Dseeuri-OCO-BbM Reductase AdvReac Nausea Verified 11/15/23 11:27 Inhibitor [Iacafan-Zto-Jjg Reductase Inhibitor] Family History Mother Cancer CAD (coronary artery disease) Brain tumor Grandfather CVA (cerebral vascular accident) Father CAD (coronary artery disease) Ruptured abdominal aortic aneurysm (AAA) Sister Brain aneurysm Surgical History Brain aneurysm Fracture of right lower leg H/O hemorrhoidectomy H/O: History of angioplasty of peripheral vessel History of angioplasty of peripheral vessel (07/11/19) History of section History of hemorrhoidectomy History of hysterectomy History of left breast biopsy History of left heart catheterization (01/25/15) History of left-sided carotid endarterectomy History of partial thyroidectomy (11/30/05) History of right-sided carotid endarterectomy S/P coil embolization of cerebral aneurysm S/P hysterectomy S/P insertion of iliac artery stent S/P thyroidectomy Stenosis of left subclavian artery Social History household members: none Smoking Status: Current every day smoker tobacco type: cigarettes alcohol intake: never caffeine: Yes Type: coffee and tea ROS ROS Narrative Admission Review of Systems: CONSTITUTIONAL: No weight loss, + low grade T, chills, weakness or fatigue. HEENT: + Lightheaded, dizziness. Eyes: No visual loss, blurred vision, double vision or yellow sclerae. Ears, Nose, Throat: No hearing loss, sneezing, congestion, runny nose or sore throat. SKIN: No rash or itching, lesions, wounds. CARDIOVASCULAR: + Lightheadedness, dizziness. No chest pain, chest pressure or chest discomfort, palpitations, edema, orthopnea, syncopal events. RESPIRATORY: + Cough, non-productive. No marked shortness of breath, wheezing, hemoptysis. GASTROINTESTINAL: + anorexia, nausea, vomiting, diarrhea, abdominal pain /cramping. No melena, BRBPR. GENITOURINARY: + Decreased UOP with decreased oral intake. No dysuria, frequency, urgency or retention. NEUROLOGICAL: + Lightheadedness, dizziness, does have underlying MS and uses walker, chronic debility/lower extremity weakness. No headache, syncope, paralysis, ataxia, numbness or tingling in the extremities, seizure. MUSCULOSKELETAL: + muscle, back pain, joint pain or stiffness. HEMATOLOGIC: No anemia, bleeding or bruising. LYMPHATICS: No enlarged nodes. No history of splenectomy. PSYCHIATRIC: No history of depression or anxiety. ENDOCRINOLOGIC: No reports of sweating. + cold or heat intolerance. No polyuria or polydipsia. ALLERGIES: + Hx of hives Vital Signs Vital Signs Vital Signs: 11/15/23 11:22 11/15/23 11:28 11/15/23 11:29 Temperature 97.8 F 97.8 F Temperature Source Oral Oral Pulse Rate 68 62 Respiratory Rate 12 14 Respiratory Effort Normal Non-Labored Blood Pressure 83/61 L 98/61 Blood Pressure Mean 68 73 Pulse Ox 98 98 Oxygen Delivery Method Room Air Room Air 11/15/23 12:29 11/15/23 13:28 11/15/23 14:00 Temperature 97.8 F Temperature Source Oral Pulse Rate 63 56 L 54 L Respiratory Rate 19 H 18 12 Respiratory Effort Blood Pressure 106/50 L 113/67 98/56 L Blood Pressure Mean 68 82 70 Pulse Ox 96 96 94 Oxygen Delivery Method Room Air Room Air Room Air Weight Weight: 128 lb 4.944 oz Body Mass Index (BMI) 21.3 Physical Exam Narrative Physical Examination: General: Awake, alert, oriented x 3 and cooperative, laying in the ED bed, fatigued and ill appearing. Skin: Normal color, normal turgor, no icterus, no cyanosis. HEENT: AT/NC, EOMI, PERRLA, dry MM, no carotid bruits or JVD noted. Lungs: Diminished, > bases, dry cough with examination with deep inspiratory effort attempts, currently no appreciated rales, ronchi or wheezing. Heart: Mildly bradycardic with regular rhythm; no gallop, rub audible. Abdomen: Soft, NTTP, ND, hyperactive BS, no HSM. Extremities: No cyanosis, clubbing, or edema. Neurological: Patient awake, alert, oriented as noted, cognitive function intact; pupils equally reactive to light and accommodation, cranial nerves grossly normal, moving all 4 extremities but does have chronic debility/weakness with underlying MS, no markedly severe noted contractures, strength moderately to severely globally decreased secondary to acute presentation compounded by u nderlying comorbidities. Psychiatric: Affect appears flat, fatigued, ill appearing, no acute evidence of depressive or anxiety feelings. Results Lab / Micro Data 11/15/23 11:30 11/15/23 11:30 Labs: Laboratory Results - last 24 hr 11/15/23 11:30: WBC 4.9, RBC 4.74, Hgb 13.7, Hct 40.9, MCV 86.3, MCH 28.9, MCHC 33.5, RDW Std Deviation 46.6 H, RDW Coeff of David 14.6, Plt Count 164, MPV 10.1, Immature Gran % (Auto) 0.600, Neut % (Auto) 70.4 H, Lymph % (Auto) 14.3 L, Darke % (Auto) 14.5 H, Eos % (Auto) 0.0, Baso % (Auto) 0.2, Absolute Neuts (auto) 3.4, Absolute Lymphs (auto) 0.70 L, Nucleated RBC % 0, Sodium 130 L, Potassium 3.9, Chloride 97 L, Carbon Dioxide 21.0, Anion Gap 12, BUN 64 H, Creatinine 2.51 H, Estim Creat Clear Calc 19.03, Est GFR (MDRD) Af Amer 24 L, Est GFR (MDRD) Non-Af 20 L, BUN/Creatinine Ratio 25.5 H, Glucose 80, Calcium 8.1 L, Total Bilirubin 0.30, AST 34, ALT 27, Alkaline Phosphatase 104, Total Protein 6.9, Albumin 3.3, Globulin 3.6, Albumin/Globulin Ratio 0.9, Lipase 60 Micro: Microbiology 11/15/23 12:46 Mucosa - Nasopharyngeal SARS-CoV-2, Influenza & RSV (PCR) - Final Influenzae A Imagaing Radiology Impression Chest X-Ray 11/15/23 12:43 IMPRESSION: Minimal atelectasis and/or possible evolving pneumonia within the left lower lung. Electronically Signed: Niki Mojica MD at 13:03 EST , Assessment & Plan Assessment/Plan (1) Influenza A: (2) Acute kidney injury: PLAN: Plan The patient is a 68 y/o F w/ PMHx: Hx Cerebral aneurysm, Chronic pain syndrome, HTN, HLD, Hx TIA, Multiple Sclerosis, Nonobstructive CAD, Psoriatic arthritis, PAD, NS SVT, GERD, Hypothyroidism, Carotid disease, Tobacco use who presents to the [facility] ED on 11/15/23 with history of 4 to 5 days of initially nausea followed by bouts of emesis and loose stools although this has been decreasing with poor oral intake although she has still been attempting to have good water intake but it has not been at her baseline and she has had low blood pressures when she is checked them at home with recent issues of the last couple months with decreasing blood pressures prompting decreases in her medications with mild abdominal cramping the day prior but no pain nor any fevers or chills prompting eventual ED evaluation. #1. General Malaise, Cough, Fever, General Debility secondary to Influenza A Viral Syndrome with associated hypotension and GI losses with nausea/emesis/diarrhea: CXR in the ED w/ questionable evolving left lower lobe pneumonia with admission CBC w/ WBC 4.9 with no left shift. Influenza A positive. Will admit to MS telemetry, maintain on oxygen with wean as tolerated, PRN albuterol, continue hydration given CHRISTOPHER concurrently, given patient timeline of illness of at least 4 to 5 days she is not Tamiflu appropriate, HOB, IS parameters, maintain on fall and aspiration precautions, plan repeat chest x-ray in AM. PT/OT/case management consultation for discharge planning. #2. Acute kidney injury with Acute Hyponatremia/Hypochloremia of Hypovolemic nature on CKD stage III primarily per prior GFR trending: Secondary to acute illness #1. Admission BUN/Cr 64/2.51, prior baseline creatinine noted to be primarily 0.8-1.0. Will hydrate, hold nephrotoxic medications and repeat chemistry in AM. If no improvement would plan FeNa and renal ultrasound assessment. #3. Chronic pain syndrome: Will very cautiously continue patient as needed pain regimen (change to oxycodone 5 mg q 8h PRN and hold extended) in addition to gabapentin renally dosed to 300 mg BID and baclofen renally dosed to 2.5 mg q12 hours until renal fx improved to avoid withdrawal however given her significant acute kidney injury. As soon as function improved these will need to again be a ltered to avoid withdrawal. #4. Carotid disease: Status post right CEA, continue patient home Plavix regimen, holding hypertensive regimen as noted and noted statin intolerance/allergy. #5. PAD: Status post iliac artery stent previously, continue patient home Plavix regimen, holding hypertensive regimen as noted and noted statin intolerance/allergy. #6. Hx TIA: Will continue patient home Plavix regimen, holding hypertensive regimen as noted and noted statin intolerance/allergy. #7. Nonobstructive CAD: Will continue patient home Plavix regimen, holding hypertensive regimen as noted and noted statin intolerance/allergy. #8. Tobacco Abuse: Encouraged cessation, inpatient consultation per RT, NR if desired. #9. Multiple sclerosis: From current list not on aggressive regimen, only noted to be on gabapentin and also on baclofen, both of which as noted above will be temporarily renally dosed and will need to again be altered based on further renal functions. Encourage continued outpatient follow-up with neurology. PT/OT/case management consulted for discharge planning. #10. Psoriatic arthritis: Prior was on prednisone, not current taking. Also, as noted on chronic pain regimen with renal changes as noted. #11. Hypertension: Given presentation with notable hypotension holding all regimen as well as noted acute kidney injury. #12. Hyperlipidemia: Noted statin allergy, defer to outpatient. #13. Hypothyroidism: History of previous goiter status post partial thyroide ctomy, continue home synthroid regimen. #14. History cerebral aneurysm: Status post coil embolization. #15. DVT prophylaxis: Heparin. #16. CODE status: Patient HCPOA and living will are not in place but she notes her sons would be her decisions makers if she was unable. Discussed CODE status at length including difference between FULL code, DNR-CCA and DNR-CC status. Following discussions about the differences in these status, requested Full Code status. Advanced Care Planning Face to Face Time: 16 minutes. Charges/Coding Visit Charges Inpatient E&M: 94194 Init Hosp L3 Procedures Hospitalists Procedures: 88009 Advncd Care Plan 30 Min
--- OUTSIDE RECORDS SUMMARY | 2023-11-15 15:44 | XMS RPT_ITS | CCD ---
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 Name Role Phone LYNNE LONGORIA Unavailable UnavailZHANE Mancera Unavailable Unavailable LYNNE LONGORIA Unavailable Unavailable ZHANE DE Unavailable Unavailable ZHANE DE Unavailable Unavailable Jacinda Benton Primary Care Provider MACEY MAIN Attending Unavailable JACINDA BENTON Primary Care Unavailable JACINDA BENTON Primary Care Unavailable MACEY MAIN Attending Unavailable CRISSY SCHMITZ Attending Unavailable JACINDA BENTON Primary Care Unavailable TYE BARNETT Attending Unavailable Allergies Allergy Classification Reported Allergen(s) Allergy Type Date of Onset Reaction(s) Facility (3 sources) Antihistamines; Translations: [ANTIHISTAMINES] Propensity to adverse reactions to drug (disorder) 04-28-20 04 [facility] Repository (2 sources) clopidogrel; Translations: [CLOPIDOGREL BISULFATE] Drug Allergy 12-18-19 12 [place] Repository (8 sources) codeine; Translations: [CODEINE] Drug Allergy 04-28-20 04 [facility] Repository (2 sources) fenofibrate; Translations: [FENOFIBRATE MICRONIZED] Drug Allergy 04-27-20 11 [place] Repository (7 sources) fentaNYL; Translations: [FENTANYL] Drug Allergy 02-19-20 12 [place] Repository (2 sources) Hmg-Coa Reductase Inhibitors (Statins); Translations: [AEQPRZP-IUE-CPW REDUCTASE INHIBITORS] Propensity to adverse reactions to drug (disorder) 04-27-20 11 [place] Repository (8 sources) morphine; Translations: [MORPHINE] Drug Allergy 04-28-20 04 Vomiting [facility] Repository (7 sources) predniSONE; Translations: [PREDNISONE] Drug Allergy 12-15-19 09 [facility] Repository (7 sources) salicylic acid; Translations: [SALICYLATES] Drug Allergy 12-04-19 09 [facility] Repository (1 source) Aspirin; Translations: [aspirin] Drug Allergy Ulcer (morphologic abnormality) [facility] (1 source) Colestipol; Translations: [colestipol] Drug Allergy [facility] (1 source) HMG-CoA reductase inhibitor; Translations: [statins] Drug allergy [facility] (5 sources) Amitriptyline Drug Allergy 03-12-20 19 Rash [facility] (5 sources) clopidogrel Drug Allergy 12-18-19 12 [facility] (5 sources) Fenofibrate Drug Allergy 04-27-20 11 [facility] (5 sources) Antihistamines, Diphenhydramine-T ype Drug Intolerance 09-17-20 [facility] Medications Current Medications Medication Drug Class(es) [...] Time Vital Sign Value Performing Clinician Faci lity 11-09-2022 14:07-0500 Diastolic Blood Pressure Non-Invasive 66 1 TYE BARNETT MD [facility] 11-09-2022 14:07-0500 Heart rate 56 /min TYE BARNETT MD [facility] 11-09-2022 14:07-0500 Systolic Blood Pressure Non-Invasive 155 1 TYE BARNETT MD [facility] 11-09-2022 13:42-0500 Diastolic Blood Pressure Non-Invasive 69 1 TYE BRANETT MD [facility] 11-09-2022 13:42-0500 Heart rate 58 /min TYE BARNETT MD [facility] 11-09-2022 13:42-0500 Systolic Blood Pressure Non-Invasive 156 1 TYE BARNETT MD [facility] 11-09-2022 13:14-0500 Diastolic Blood Pressure Non-Invasive 86 1 TYE BARNETT MD [facility] 11-09-2022 13:14-0500 Heart rate 54 /min TYE BARNETT MD [facility] 11-09-2022 13:14-0500 Systolic Blood Pressure Non-Invasive 175 1 TYE BARNETT MD [facility] 11-09-2022 11:25-0500 Reason For Taking VItal Signs TYE BARNETT MD [facility] 11-09-2022 11:25-0500 Respiratory rate 16 /min TYE BARNETT MD [facility] 11-09-2022 11:03-0500 Respiratory rate 16 /min TYE BARNETT MD [facility] 11-09-2022 10:38-0500 Respiratory rate 16 /min TYE BARNETT MD [facility] 11-09-2022 06:29-0500 Blood Pressure Location TYE BARNETT MD [facility] 11-09-2022 06:29-0500 Body height 167.6 cm TYE BARNETT MD [facility] 11-09-2022 06:29-0500 Body temperature 97.7 [degF] TYE BARNETT MD [facility] 11-09-2022 06:29-0500 Body weight 54.8 kg TYE BARNETT MD [facility] 11-09-2022 06:29-0500 Body weight 19.51 kg/m2 TYE BARNETT MD [facility] Encounters Encounter Date Encounter Type Care Provider Facility Start: 10-26-2023 End: 10-26-2023 ambulatory TYE BARNETT Facility:A Start: 10-05-2023 End: 10-06-2023 ambulatory [facility] Start: 10-05-2023 End: 10-05-2023 Office outpatient visit 40 minutes Macey Main MD Work Phone: [facility] Procedures Date Procedure Procedure Detail Performing Clinician Start: 04-19-2016 Lipid 1996 panel - S isrrael or Plasma Macey Main MD Work Phone: Appendectomy TYE BARNETT MD Carotid endarterectomy TYE BARNETT MD Cholecystectomy TYE BARNETT MD Colonoscopy TYE ABRNETT MD Dilation and curetta ge of uterus [...] DTaP/Tdap/Td Vaccines (3 - Td or Tdap) [facility] Start: 07-20-2023 COVID-19 Vaccine ( season) COVID-19 Vaccine ( season) [facility] Start: 07-20-2023 Influenza vaccination Influenza Vacc ine (#1) [facility] Start: 04-19-2021 Lipid panel Lipid Panel [facility] Start: 2014 RSV Immunization age d 60 or older (1 - 1-dose 60+ series) RSV Immunization aged 60 or older (1 - 1-dose 60+ series) [facility] Start: 08-19-2009 Pneumococcal Vaccine : 65+ Years (2 - PCV) Pneumococcal Vaccine: 65+ Years (2 - PCV) [facility] Start: 2004 Zoster Vaccines (1 of 2) Zoster Vacc clifford (1 of 2) [facility] Start: 1994 Screening for malign ant neoplasm of breast Mammogram [facility] Start: 1972 Diabetes mellitus screening Diabetes Screening [facility] Start: 1972 Hepatitis C screening Hepatitis C Sc reening [facility] Start: 1966 Depression Screening Depression Scre ening [facility] Start: 1954 Medicare Advantage A nnual Wellness Visit (AWV) Medicare Advantage Annual Wellness Visit (AWV) [facility] Start: 1954 Screening for malign ant neoplasm of colon [facility] Start: 1954 Screening for osteoporosis Bone Dens ity Scan [facility] Start: 1954 Thyroid stimulating hormone measurement TSH Level [facility] Immunizations Immunization Date Immunization Notes Care Provider Fa cility 09-16-2022 influenza virus vacc ine, unspecified formulation Macey Main MD Work Phone: [facility] Payers Date Payer Category Payer Medicare [id number] 2022 Medicare [employer] [id number] 2022-Present [address] [place] [address] Medicare HMO [id number] 1955 Unknown [id number] Social History Date Type Detail Facility Tobacco smoking status NHIS Smokes tobacc o daily [facility] History of tobacco use Cigarette Smoker S [facility] Start: 04-04-2023 End: 10-05-2023 Alcohol intake Ex-drinker (finding) [facility] Start: 04-04-2023 History of Social function [facility] Start: 04-04-2023 Tobacco use panel [facility] Start: 1955 Sex Assigned At Not on file S [facility] Functional Status Date Assessment Result Facility 11-09-2022 Functional Status Ambulating in room [facility] 11-09-2022 Functional Status [facility] 11-09-2022 Functional Status Maintained [facility] Mental Status Date Assessment Result Facility 11-09-2022 Mental Status Orientation Oriented x 4 [facility] 11-09-2022 Mental Status [facility] 11-09-2022 Mental Status [facility] Clinical Notes 02-09-2021 to 10-05-2023 Macey Main MD - 10/05/2023 3:00 PM ESTTelephone Encounter - Yanely Kwon MA - 10/05/2023 12:58 PM ESTTelephone Encounter - Yanely Kwon MA - 10/05/2023 12:58 PM EST Note Date & Type Note Facility 10-05-2023 History of Present illness Narrative Images from the original note were not included. [facility] [address] [place] [address] [facility] [address] Dept: [phone] Dept Loc: [phone] Patient was seen today via Telehealth by [...] stated that they are currently in the [facility]. If the patient is a minor, permission [...] TSH VITAMIN B12: No results found for: [id number] No results found for: PHENYTOIN , PHENOBARB , VALPROATE , CBMZ No results found for: LEVETIRACETA , FERRITIN , CRP , DENNIS , ANCA FERRITIN: No results found for: FERRITIN @RESULTINGLABINFO@ No components found for: TOPIRA No results found for: CHRISTIANO , IMMUNOGLOBUL , OLIGOBANDS No results found for: TPZ86UE , HEPCAB No results found for: CRP , ANATITER , ANCA ---- @LASTAPPOINTMENTTHISPROV@ ECG 12 lead SINUS BRADYCARDIA PROBABLE LEFT ATRIAL ABNORMALITY No previous ECG available for comparison Electronically Signed On 04-05-2023 7:42:10 EDT by Juvenal Benton Patient Name: ANGÉLICA WALLER : 1955 [facility]#: [id number] Exam Date/Time: 04/04/2023 15:32 Procedure: CT HEAD [...] volume rendered reformats were obtained using a [employer] workstation. Review of the axial source data [...] of the major intracranial arteries at the jamul of [place]. 6. No hemodynamically significant narrowing [...] arranging for studies. documented in this encounter [facility] 10-05-2023 Telephone encounter Note Patient has been scheduled and records are being faxed over. [facility] 10-05-2023 Miscellaneous Notes Patient has been scheduled and records are being faxed over. Get records from [facility]. OK to add her on at 3 PM as a real or a virtual visit Name of caller: Angélica Contact phone number: [phone] Relationship to Patient: patient Provider: DR Main Practice: [facility] Chief Complaint/Reason for Call: pt was at [facility] yesterday for an MS attack she is asking for IV steroids order infusion. She was started at the hospital and will need additional steroids. Please advise when order placed. Best time of day caller can be reached: AM Patient advised that office/PCP has 24-48 business hours to return their call: Yes documented in this encounter [facility] 10-05-2023 Telephone encounter Note Get records from [facility]. OK to add her on at 3 PM as a real or a virtual visit [facility] 10-05-2023 Telephone encounter Note Name of caller: Angélica Contact phone number: [phone] Relationship to Patient: patient Provider: DR Main Practice: [facility] Chief Complaint/Reason for Call: pt was at [facility] yesterday for an MS attack she is asking for IV steroids order infusion. She was started at the hospital and will need additional steroids. Please advise when order placed. Best time of day caller can be reached: AM Patient advised that office/PCP has 24-48 business hours to return their call: Yes [facility] [employer] [facility] 06-15-2023 Telephone encounter Note Medication name: baclofen (Lioresal) 20 MG tablet [[id number]] Order Details Dose: 20 mg Route: Oral [...] Original Order: baclofen (Lioresal) 20 MG tablet [[id number]] Providers Ordering and Authorizing Provider: Macey Main MD NEGRA #: [id number] Ordering User: Macey Main MD Pharmacy [id number] [address] NEGRA #: -- Date of last office visit: 04/04/23 Date of next office visit: None Date of last refill: (see medication tab): 10/05/22 Updated/Validated preferred pharmacy: Yes Patient instructed to contact the pharmacy prior to picking up the medication: Yes [facility] [employer] 06-15-2023 Miscellaneous Notes Medication name: baclofen (Lioresal) 20 MG tablet [[id number]] Order Details Dose: 20 mg Route: Oral [...] Original Order: baclofen (Lioresal) 20 MG tablet [[id number]] Providers Ordering and Authorizing Provider: Macey Main MD NEGRA #: [id number] Ordering User: Macey Main MD Pharmacy [id number] [place] [id number] [address] NEGRA #: -- Date of last office visit: 04/04/23 Date of next office visit: None Date of last refill: (see medication tab): 10/05/22 Updated/Validated preferred pharmacy: Yes Patient instructed to contact the pharmacy prior to picking up the medication: Yes documented in this encounter [facility] 06-04-2023 Telephone encounter Note Rx renewed [facility] 06-04-2023 Miscellaneous Notes Rx renewed Please [...] the medication: Yes documented in this encounter [facility] 06-04-2023 Telephone encounter Note Please advise. [facility] 06-04-2023 Telephone encounter Note Medication name: [...] prior to picking up the medication: Yes [facility] 11-09-2022 Hospital Discharge instructions Patient Education [...] and water are not available, use hand tool and production planner. ?Change your dressing as told by your [...] the contrast dye from your body. Take nvff-xpa-ufumogc and prescription medicines only as told by [...] 05/24/2006 Document Revised: 10/18/2018 Document Reviewed: 10/10/2017 [employer] Patient Education 2020 [employer] 11/09/2022 12:48:21 Moderate Conscious Sedation, Adult, Care [...] until you are awake and alert. Take vvyh-lmy-dmtyfou and prescription medicines only as told by [...] 08/26/2014 Document Revised: 10/18/2018 Document Reviewed: 02/24/2017 [employer] Patient Education 2020 [employer]. Follow Up Care 10/27/2022 15:58:56 With:TYE BARNETT MD, [facility], Surgery, Vascular Surgeons Address: [facility] [address] [place] [id number] When: Unknown Comments:Follow-up as scheduled [facility] 11-09-2022 Summary of episode note Discharge Instructions Thank you for allowing [facility] to assist you with your healthcare needs. The following is important discharge information regarding your hospital visit. What to do next Follow Up Appointments Follow Up with TYE BARNETT MD, [facility], Surgery, Vascular Surgeons When Why: Follow-up as scheduled Where: [facility] [address] [facility] [address] [place] [address] The Following Activity and Diet [...] and water are not available, use hand tool and production planner. ? Change your dressing as told by [...] the contrast dye from your body. Take ngop-lms-dmubasw and prescription medicines only as told by [...] 05/24/2006 Document Revised: 10/18/2018 Document Reviewed: 10/10/2017 [employer] Patient Education 2020 [employer]. Moderate Conscious Sedation, Adult, Care After These [...] until you are awake and alert. Take yoxr-zxf-okdkwul and prescription medicines only as told by [...] 08/26/2014 Document Revised: 10/18/2018 Document Reviewed: 02/24/2017 [employer] Patient Education 2020 [employer]. Additional Information VACCINATE! IT SAVES LIVES! Members of the community who have not yet received the COVID-19 vaccine and would like to receive it can visit one of [facility] vaccine clinics. There are many vaccine clinic locations within the [facility]. For locations and available times, please visit [email or web address].[place].gov/. It is important to note that some COVID mobile vaccine clinics are held outdoors and may be canceled in rainy or stormy conditions. To learn more about pediatric vaccinations (ages 5-11), we invite you to visit the [facility] webpage. [email or web address] To learn more about the COVID-19 vaccine, we invite you to visit the [facility] website for a list of frequently asked questions. [email or web address] quently_[email or web address]-Questions.pdf [facility] Patient Portal Access Instructions: Stay connected with your healthcare team and access your personal medical information anytime with the [facility] Patient Portal.If you would like a full copy of your medical records, please contact the [facility] Medical Records Department, Sunday through Sunday between 8a.m. and 4:30p.m. Please follow the directions below to access the portal: 1.Access the email account you provided upon registration to the hospital.2.Look for an invitation email from [facility].3.Open the email and access the invitation link: Accept Invitation to [facility]4.Fill in the required duarte to create your account. Sign into www.[employer] with your username and password that you [...] you will allow to register on the [facility] Patient Portal for access to your information. You can also access the [facility] Patient Portal on the [employer] jennifer. Simply click on Health Records under Health Data and then click on the [employer] logo. HOW TO SAFELY DISPOSE OF PRESCRIPTION [...] Call your local pharmacy or go to http://Factual.FlexEl/2M8Dk3w to find one close to you.3.Make use of household items: Use cat litter or old coffee grounds to dispose medications if other options are not available. Mix your drugs with these household products, seal them in an airtight container and throw it into the garbage. Call [facility]: [phone] to be sure your drugs can be [...] been reviewed and explained to me and I,ANGÉLICA WALLER understand my current condition and have read and understand these discharge instructions. I have received a written copy of the plan/instructions. If I have questions, I am aware that I should contact my doctor. 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 [facility] 11-09-2022 Note ORIGINAL Images acquired, not reported on this accession number. [facility] 04-12-2021 Note HNO ID: [id number] Author: TOMMY Flores) Service: ? Author Type: Physician Assistant Psychiatry Type: Progress Notes Filed: 04/12/2021 2:14 PM [...] DATE: April 12, 2021 TIME: 2:13 PM [facility] 02-09-2021 Note HNO ID: [id number] Author: Alexander Regalado Service: ? Author Type: Physician Type: Progress [...] wound at high risk for bone exposure. [facility] Evaluation + Plan note No data available for this section [facility] Diagnosis Multiple sclerosis (HCC) Multiple sclerosis [facility] Diagnosis Multiple sclerosis (HCC)- Primary Multiple sclerosis Cerebrovascular disease, unspecified Primary hypertension Unspecified essential hypertension documented in this encounter [facility] Health Summary Purpose Family History No Family [...] DATE CREATED AUTHOR AUTHOR'S ORGANIZ ATION 05/13/2018 [facility] DATE CREATED AUTHOR AUTHOR'S ORGANIZ ATION 12/13/2021 [facility] DATE CREATED AUTHOR AUTHOR'S ORGANIZ ATION 10/10/2023 [facility] DATE CREATED AUTHOR AUTHOR'S ORGANIZ ATION 11/15/2023 [facility] Care Team (unrecognized sect ion and content) Care Team Related Persons Name: BHAVIK HONG Name: LOLA HONG Reason for Visit (unrecogniz ed section and content) Reason Onset Date Comments Med Refill 06/04/2023 Reason Onset Date Comments Med Refill 06/15/2023 Reason Onset Date Comments Orders 10/05/2023 Reason Comments Hospital Follow-up Care Teams (unrecognized sec tion and content) 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 [facility] [employer] [facility]. provides no warranty or guarantee of the accuracy or completeness of information in this document.
[2023-11-15 15:59] LABS: Mucous, Urine 0 SEEN /hpf (<or=2+)
[2023-11-15 16:04] LABS: Procalcitonin 0.24 ng/mL (0.00-0.09)
[2023-11-15 16:07] LABS: Color, Urine Yellow (Yellow); Glucose, Dipstick Normal (Normal); Ketone-Dipstick 5 mg/dl (Negative); Leukocyte Esterase-Dipstick 100 /ul (Negative); Nitrite-Dipstick Negative (Negative); Occult Blood-Urine 25 /ul (Negative); Protein-Dipstick 15 mg/dl (Negative); Specific Gravity, Urine 1.015 (1.002-1.030); Urine Bilirubin Dipstick Negative (Negative); Urine Clarity Sl. Cloudy (Clear); Urine Urobilinogen Normal (Normal)
[2023-11-15 16:14] LABS: Squamous Epithelial Cells - UA 5-10 SEEN /hpf (5-10); White Blood Cells 5-10 SEEN /hpf (0-5)
[2023-11-15 16:15] LABS: Bacteria RARE /hpf (None Seen); Calcium Oxalate Crystals Ur RARE /hpf (<or=2+); Red Blood Cells-Urine 0-5 SEEN /hpf (0-5)
[2023-11-15] MEDS: Pantoprazole Sodium 20 MG Tablet PO ×2 (16:57→21:25)
[2023-11-15] MEDS: 0.9% Normal Saline (1000mL) 1,000 ML 100 ML IV (16:57)
[2023-11-15] MEDS: 0.9% Saline Lock 10 ML Syringe IV (16:58)
[2023-11-15] MEDS: oxyCODONE 5 MG Tablet PO (17:15)
[2023-11-15] MEDS: Gabapentin 300 MG Capsule PO (21:25)
[2023-11-15] MEDS: Baclofen 10 MG Tablet 2.5 MG PO (21:25)
[2023-11-15] MEDS: Heparin Injection (Vial) 5,000 UNIT/ML VIAL 5000 UNIT SC (21:25)
[2023-11-16] MEDS: oxyCODONE 5 MG Tablet PO ×2 (01:35→09:50)
[2023-11-16] MEDS: 0.9% Normal Saline (1000mL) 1,000 ML 100 ML IV (01:36)
[2023-11-16 01:37] VITALS: BP 144/74; PULSE 60; RESP 20; TEMP 36.5; O2SAT 95
[2023-11-16 01:54] VITALS: BMI 19.9
[2023-11-16] MEDS: Levothyroxine 50 MCG Tablet PO (05:38)
[2023-11-16] MEDS: Acetaminophen 325 MG Tablet 650 MG PO (05:38)
--- NOTE | 2023-11-16 05:40 | RAD_ITS ---
INDICATION: Dyspnea, cough EXAMINATION/TECHNIQUE: X-RAY - XR Chest 1 View COMPARISON: . FINDINGS: LINES/DEVICES: None. LUNGS: No consolidation, edema or effusion. No pneumothorax. MEDIASTINUM AND CARDIOVASCULAR STRUCTURES: Cardiac silhouette not enlarged. Central airways and mediastinal contour are unremarkable. BONES AND SOFT TISSUES: Mild thoracic dextroscoliosis. RAD/Chest 1 View (Portable) IMPRESSION: No radiographic evidence of acute cardiopulmonary disease. Electronically Signed: Yovana Rogers MD at 23:45 EST Reading Location ID and State: [id number] / Tel , Service support ,
[2023-11-16] MEDS: Mag Hydrox/Al Hydrox/Simeth 30 ML UDC PO (05:42)
[2023-11-16 06:34] LABS: Absolute Lymphocyte Count 0.96 X10^3/uL (0.83-4.51); Absolute Neutrophil Count 2.2 X10^3/uL (2.0-7.7); Basophil# 0.01 X10^3/uL; Basophil% 0.3 % (0-1); Eosinophil# 0.01 X10^3/uL; Eosinophils% 0.3 % (0-5); Hematocrit 37.1 % (37-47); Hemoglobin 12.2 g/dL (12.0-15.0); Lymphocyte # 0.96 X10^3/ul (0.83-4.51); Lymphocyte % 25.5 % (19-41); Mean Corp Hgb Conc 32.9 g/dL (32-36); Mean Corpuscular Volume 88.3 fL (81-99); Mean Platelet Vol. 10.1 fl (6.2-12.0); Monocyte# 0.59 X10^3/uL; Monocyte% 15.7 % (0-10); NRBC Flagged by Analyzer 0 % (0-5); Neutrophil # 2.17 X10^3/uL (2.7-7.7); Neutrophil % 57.7 % (47-70); Platelet Count 136 K/mm3 (150-450); RBC Distribution Width CV 14.8 % (11.6-14.6); RBC Distribution Width SD 48.2 fl (35.1-43.9); White Blood Count 3.8 K/mm3 (4.4-11.0)
[2023-11-16 06:59] LABS: AST(SGOT) 28 U/L (15-37); Alanine Aminotransfer ALT/SGPT 23 U/L (13-56); Albumin, Serum 2.9 g/dL (3.2-5.0); Alkaline Phosphatase 90 U/L (45-117); Anion Gap 7 (5-15); BUN 42 mg/dL (7-18); BUN/Creat Ratio 26.4 RATIO (10-20); Calcium,Total 7.4 mg/dL (8.5-10.1); Chloride 107 mmol/L (98-107); Creatinine, Serum 1.59 mg/dL (0.55-1.02); EST Glomerular Filtration Rate 34 mL/min (>60); Est Glom Filt Rate - Afr Amer 41 mL/min (>60); Estimated Creatinine Clearance 28.68 ml/min; Glucose 73 mg/dL (74-106); Potassium 3.6 mmol/L (3.5-5.1); Protein, Total 5.9 g/dL (6.4-8.2); Sodium Level 135 mmol/L (136-145)
--- NOTE | 2023-11-16 07:30 | PN.HOSP_ITS ---
Reason for Visit Reason for Visit: Diagnoses Influenza due to other identified influenza virus with other respiratory manife stations (11/15/23) Acute kidney failure, unspecified (11/15/23) Objective Data Objective Data Vital Signs: Vital Signs Temp Pulse Resp BP Pulse Ox O2 Del Method 97.7 F L 60 20 H 144/74 H 95 Room Air 11/16/23 01:37 11/16/23 01:37 11/16/23 01:37 11/16/23 01:37 11/16/23 01:37 11/16/23 01:40 Oxygen Delivery Method Room Air Weight: 119 lb 14.903 oz Body Mass Index (BMI) 19.9 Intake & Output: Intake and Output for Last 24 Hours 11/14/23 11/15/23 11/16/23 23:59 23:59 23:59 Intake Total 1000 / 1000 865 / 865 Balance 1000 / 1000 865 / 865 Lab / Micro Data 11/16/23 05:50 11/16/23 05:50 Labs: Laboratory Results - last 24 hr 11/15/23 11:30: WBC 4.9, RBC 4.74, Hgb 13.7, Hct 40.9, MCV 86.3, MCH 28.9, MCHC 33.5, RDW Std Deviation 46.6 H, RDW Coeff of David 14.6, Plt Count 164, MPV 10.1, Immature Gran % (Auto) 0.600, Neut % (Auto) 70.4 H, Lymph % (Auto) 14.3 L, [place] % (Auto) 14.5 H, Eos % (Auto) 0.0, Baso % (Auto) 0.2, Absolute Neuts (auto) 3.4, Absolute Lymphs (auto) 0.70 L, Nucleated RBC % 0, Sodium 130 L, Potassium 3.9, Chloride 97 L, Carbon Dioxide 21.0, Anion Gap 12, BUN 64 H, Creatinine 2.51 H, Estim Creat Clear Calc 19.03, Est GFR (MDRD) Af Amer 24 L, Est GFR (MDRD) Non-Af 20 L, BUN/Creatinine Ratio 25.5 H, Glucose 80, Calcium 8.1 L, Total Bilirubin 0.30, AST 34, ALT 27, Alkaline Phosphatase 104, Total Protein 6.9, Albumin 3.3, Globulin 3.6, Albumin/Globulin Ratio 0.9, Lipase 60, Procalcitonin 0.24 H 11/15/23 15:55: Urine Color Yellow, Urine Clarity Sl. Cloudy, Urine pH 5.0, Ur Specific [place] 1.015, Urine Protein 15 H, Urine Glucose (UA) Normal, Urine Ketones 5 H, Urine Occult Blood 25 H, Urine Nitrite Negative, Urine Bilirubin Negative, Urine Urobilinogen Normal, Ur Leukocyte Esterase 100 H, Urine RBC 0-5 SEEN, Urine WBC 5-10 SEEN, Ur Squamous Epith Cells 5-10 SEEN, Calcium Oxalate Crystal RARE, Urine Bacteria RARE, Urine Mucus 0 SEEN 11/16/23 05:50: WBC 3.8 L, RBC 4.20, Hgb 12.2, Hct 37.1, MCV 88.3, MCH 29.0, MCHC 32.9, RDW Std Deviation 48.2 H, RDW Coeff of David 14.8 H, Plt Count 136 L, MPV 10.1, Immature Gran % (Auto) 0.500, Neut % (Auto) 57.7, Lymph % (Auto) 25.5, [place] % (Auto) 15.7 H, Eos % (Auto) 0.3, Baso % (Auto) 0.3, Absolute Neuts (auto) 2.2, Absolute Lymphs (auto) 0.96, Nucleated RBC % 0, Sodium 135 L, Potassium 3.6, Chloride 107, Carbon Dioxide 21.0, Anion Gap 7, BUN 42 H, Creatinine 1.59 H , Estim Creat Clear Calc 28.68, Est GFR (MDRD) Af Amer 41 L, Est GFR (MDRD) Non- Af 34 L, BUN/Creatinine Ratio 26.4 H, Glucose 73 L, Calcium 7.4 L, Total Bilirubin 0.40, AST 28, ALT 23, Alkaline Phosphatase 90, Total Protein 5.9 L, Albumin 2.9 L, Globulin 3.0, Albumin/Globulin Ratio 1.0 Micro: Microbiology 11/15/23 12:46 Mucosa - Nasopharyngeal SARS-CoV-2, Influenza & RSV (PCR) - Final Influenzae A Radiography Diagnostic Testing: Radiology Impression Chest X-Ray 11/15/23 12:43 IMPRESSION: Minimal atelectasis and/or possible evolving pneumonia within the left lower lung. Electronically Signed: Niki Mojica MD at 13:03 EST , Assessment & Plan Assessment/Plan (1) Influenza A: (2) Acute kidney injury: PLAN: Plan The patient is a 68 y/o F who was admitted on the [facility] floor for nausea, vomiting and diarrhea for about 4 to 5 days, started with nausea and then vomiting and diarrhea. Denies blood in the stool or vomiting. Patient blood pressure was also low at home and is not able to eat or drink much. Mild a bdominal cramping with less urine output but denies burning micturition. No fever or chills. #1. General Malaise, Cough, Fever, General Debility secondary to Influenza A Viral Syndrome with associated hypotension and GI losses with nausea/emesis/diarrhea: Chest x-ray done in ED and on 11/16 individually reviewed and shows atelectasis on the right lower lung. Possibility of infiltrate in the right lung base/evolving pneumonia compared to previous x-ray of 10/05/2023. Mild leukopenia and thrombocytopenia. Patient is out of time window, and duration of illness more than 4 days therefore not Tamiflu is appropriate. Discussed with the pharmacist and use only for outpatient treatment of influenza A is 48 hours but if patient is very sick like an ICU admission may be 3 to 4 days. Influenza A PCR is positive. #2. Acute kidney injury with Acute Hyponatremia/Hypochloremia of Hypovolemic nature on CKD stage III primarily per prior GFR trending: Secondary to acute illness #1. Admission BUN/Cr 64/2.51, prior baseline creatinine noted to be primarily 0.8-1.0. Will hydrate, hold nephrotoxic medications and repeat chemistry in AM. If no improvement would plan FeNa and renal ultrasound a ssessment. #3. Chronic pain syndrome: Will very cautiously continue patient as needed pain regimen (change to oxycodone 5 mg q 8h PRN and hold extended) in addition to gabapentin renally dosed to 300 mg BID and baclofen renally dosed to 2.5 mg q12 hours until renal fx improved to avoid withdrawal however given her significant acute kidney injury. As soon as function improved these will need to again be altered to avoid withdrawal. #4. Carotid disease: Status post right CEA, continue patient home Plavix regimen, holding hypertensive regimen as noted and noted statin intolerance/allergy. #5. PAD: Status post iliac artery stent previously, continue patient home Plavix regimen, holding hypertensive regimen as noted and noted statin intolerance/allergy. #6. Hx TIA: Will continue patient home Plavix regimen, holding hypertensive regimen as noted and noted statin intolerance/allergy. #7. Nonobstructive CAD: Will continue patient home Plavix regimen, holding hypertensive regimen as noted and noted statin intolerance/allergy. #8. Tobacco Abuse: Encouraged cessation, inpatient consultation per RT, NR if desired. #9. Multiple sclerosis: From current list not on aggressive regimen, only noted to be on gabapentin and also on baclofen, both of which as noted above will be temporarily renally dosed and will need to again be altered based on further renal functions. Encourage continued outpatient follow-up with neurology. PT/OT/case management consulted for discharge planning. #10. Psoriatic arthritis: Prior was on prednisone, not current taking. Also, as noted on chronic pain regimen with renal changes as noted. #11. Hypertension: Given presentation with notable hypotension holding all regimen as well as noted acute kidney injury. #12. Hyperlipidemia: Noted statin allergy, defer to outpatient. #13. Hypothyroidism: History of previous goiter status post partial thyroidectomy, continue home synthroid regimen. #14. History cerebral aneurysm: Status post coil embolization. #15. DVT prophylaxis: Heparin. #16. CODE status: Patient HCPOA and living will are not in place but she notes her sons would be her decisions makers if she was unable. Discussed CODE status at length including difference between FULL code, DNR-CCA and DNR-CC status. Following discussions about the differences in these status, requested Full Code status. Advanced Care Planning Face to Face Time: 16 minutes.
[2023-11-16] MEDS: Heparin Injection (Vial) 5,000 UNIT/ML VIAL 5000 UNIT SC (08:31)
[2023-11-16] MEDS: Pantoprazole Sodium 20 MG Tablet PO (08:32)
[2023-11-16] MEDS: Baclofen 10 MG Tablet 2.5 MG PO (08:32)
[2023-11-16] MEDS: Clopidogrel Bisulfate 75 MG Tablet PO (08:33)
[2023-11-16] MEDS: Gabapentin 300 MG Capsule PO (08:34)
[2023-11-16 09:31] VITALS: BP 138/71; PULSE 59; RESP 16; TEMP 36.5; O2SAT 96
[2023-11-16 09:53] VITALS: PULSE 66
--- NOTE | 2023-11-16 10:19 | CASEMGMT ---
EVERT CHAVARRIA Assessment Face to Face with patient for initial transition planning/care coordination assessment. EVERT CHAVARRIA introduced self and role at [facility], pt voices understanding. Pt is A&Ox4 and is resting comfortably in bed and is calm. Care providers, pharmacy, and demographics verified. Admitting dx: Influenza A, CHRISTOPHER LACE Strata: 3 Smoking History: Pt states she smokes around 5 cigarettes per day and I have been trying to cut back. PCP: [facility] Specialists: Maeve (Neuro in [place] per pt), Elijah (Vascular in [place]) Preferred Pharmacy:[facility] Insurance: [facility] Prescription Benefit: Yes LNOK: Roberto Fitzgerald (son), Augusto Fitzgerald (son) Living Arrangements: Pt states living in a handicap apartment alone. Pt states it has a flat entrance with no steps. Pt states that the entire home is well equipped with handicap needs. ADLs/IADLs: Pt states independent with ADLs. Pt states she has an aide from [employer] in [place] that comes 2 times per week to help with grocery shopping and compensation analyst. Transportation: Pt does not drive due to vision loss. States her sons can drive her and also the aide. DME: Pt uses a rollator at home and denies issues. Pt states she has a WC but does not use. Denies home O2 use. Shower is equipped with a shower chair. HHC/SNF: Denies SNF. States I had HH nursing come out a long time ago but I cannot remember for what. Pt?s goal: Pt goal is to DC home today with no issues. Pt reports her aide will assist her at home. Plan: DC today with no needs. Ella Bundy RN, CM
--- NOTE | 2023-11-16 10:32 | DCINST_ITS ---
Discharge Instructions Diet Discharge Diet: No restrictions Activity Discharge Activity: Return to Normal Activity Weight Bearing Status: Weight bearing as tolerated Dressing / Incision Call your doctor if you observe: Fever of 101 or Higher, Coldness, Increased Pain, Numbness or Tingling, Change in Color, Inability to urinate, Inability to have a bowel movement, Using more than 1 pad per hour, Shortness of breath, Dizziness, Fainting spells, Swelling in the ankles, Chest pain, Prolonged hiccupping, Increased palpitations (irregular heartbeat) and Calf discomfort Follow Up Care When: IN 2 WEEKS Test Results: Test results from this visit will be discussed in further detail at your follow- up appointment, if applicable. Discharge Plan Admission Admit Date/Time: 11/15/23 15:13 Primary Reason for Your Visit: Influenza A bronchitis Attending Provider: Hi Garcia Primary Care Provider: Daron Benton Consulting Providers: Sommer Resendiz Discharge Orders/Prescriptions Prescriptions: New dextromethorphan-guaifenesin [Mucinex DM] 60-1,200 mg tablet extended release 12 hr 1 tab PO Q12H 7 Days Qty: 14 0RF Continued gabapentin 800 mg tablet 800 mg PO TID baclofen 20 mg tablet 20 mg PO Q8H levothyroxine 50 mcg tablet 50 mcg PO DAILY Patient Comments: take 1 tablet by mouth once daily oxycodone 10 mg tablet 10 mg PO Q6H PRN Patient Comments: take 1 tablet by mouth twice a day if needed for pain cholecalciferol (vitamin D3) 5,000 UNIT tablet 5,000 unit PO DAILY Patient Comments: supplement clopidogrel 75 mg tablet 75 mg PO DAILY Qty: 90 3RF Held lisinopril 5 mg tablet 5 mg PO DAILY Qty: 30 11RF Hold Instructions: Hold for 7 days. Referrals / Follow Up: Daron Benton MD [Primary Care Provider] - Disposition Disposition (needs filled in before D/C Order can be placed): Home, Self Care
--- NOTE | 2023-11-16 10:43 | DS.PCM_ITS ---
Providers Date of Admission: 11/15/23 Date of Discharge: 11/16/23 Primary Care Physician: Dr. Daron Benton MD Reason For Visit: INFLUENZA A, CHRISTOPHER Diagnosis Discharge Diagnosis (1) Influenza A: Status: Acute Code(s): J10.1 - Influenza due to other identified influenza virus with other respiratory manifestations (2) Acute kidney injury: Status: Acute Code(s): N17.9 - Acute kidney failure, unspecified Plan The patient is a 68 y/o F [facility], vomiting and diarrhea for about 4 to 5 days, started with nausea and then vomiting and diarrhea. Denies blood in the stool or vomiting. Patient blood pressure was also low at home and is not able to eat or drink much. Mild abdominal cramping with less urine output but denies burning micturition. No fever or chills. #1. Influenza A acute viral syndrome with nausea vomiting and diarrhea and associated hypovolemia and hypotension: [facility] Patient resuscitated well IV fluid normal saline. Chest x-ray done in ED and on 11/16 individually reviewed and shows atelectasis on the right lower lung. Possibility of infiltrate in the right lung base/evolving pneumonia compared to previous x-ray of 10/05/2023. Mild leukopenia and thrombocytopenia. Patient is out of time window, and duration of illness more than 4 days therefore not Tamiflu is appropriate. Discussed with the pharmacist and use only for outpatient treatment of influenza A is 48 hours but if patient is very sick like an ICU admission may be 3 to 4 days. Influenza A PCR is positive. Patient's symptoms getting better. Patient discharged on Mucinex DM incentive spirometry and PEP. #2. Acute kidney injury with Acute hypotonic hypovolemic hyponatremia and hypochloremia on CKD stage IIIa: Admission BUN/Cr 64/2.51, prior baseline creatinine noted to be primarily 0.8-1.0. Patient is being treated with IV fluid. Creatinine improved to 1.59. Serum sodium also improved to 135. Continue IV fluid while patient is here and discharge in afternoon patient wants to go home. Advised to continue oral intake. #3. Chronic pain syndrome: Patient takes oxycodone 10 mg every 6 hourly and will decrease to 5 mg every 8 hourly as needed because of hypotension and CHRISTOPHER. Patient wants her oxycodone back to 10 mg every 6 hourly. She states she has multiple rheumatologic problems chronic osteoporosis, psoriatic arthritis and m ultiple sclerosis and her all body including the spine pelvis and hip and thighs hurt. #4. Carotid disease: Status post right CEA, continue patient home Plavix regimen, holding hypertensive regimen as noted and noted statin intolerance/allergy. #5. PAD: Status post iliac artery stent previously, continue patient home Plavix regimen, holding hypertensive regimen as noted and noted statin intol erance/allergy. #6. Hx TIA: Will continue patient home Plavix regimen, holding hypertensive regimen as noted and noted statin intolerance/allergy. #7. Nonobstructive CAD: Will continue patient home Plavix regimen, holding hypertensive regimen as noted and noted statin intolerance/allergy. #8. Tobacco Abuse: Encouraged cessation, inpatient consultation per RT #9. Multiple sclerosis: From current list not on aggressive regimen, only noted to be on gabapentin and also on baclofen, both of which as noted above will be temporarily renally dosed and will need to again be altered based on further renal functions. Encourage continued outpatient follow-up with neurology. PT/OT/case management consulted for discharge planning. #10. Psoriatic arthritis: Prior was on prednisone, not current taking. Also, as noted on chronic pain regimen with renal changes as noted. #11. Hypertension: Given presentation with notable hypotension holding all regimen as well as noted acute kidney injury. #12. Hyperlipidemia: Noted statin allergy, defer to outpatient. #13. Hypothyroidism: History of previous goiter status post partial thyroidectomy, continue home synthroid regimen. #14. History cerebral aneurysm: Status post coil embolization. #15. DVT prophylaxis: Heparin. #16. CODE status: Patient HCPOA and living will are not in place but she notes her sons would be her decisions makers if she was unable. Discussed CODE status at length including difference between FULL code, DNR-CCA and DNR-CC status. Following discussions about the differences in these status, requested Full Code status. Discharge medication reconciliation done. Discharge follow-up instructions completed. Discharge process discussed with the patient and all questions were answered to patient's satisfaction. Follow with PCP in 1 to 2 weeks Total time spent, exact 35 minutes on discharge meds reconciliation, examination, coordination of care with nurses and ancillary staff, review of imaging and blood test and discussion with the patient on follow-up instructions. Medications at Discharge Home Medications cholecalciferol (vitamin D3) 125 mcg (5,000 unit) tablet 5,000 unit PO DAILY supplement 12/16/13 gabapentin 800 mg tablet 800 mg PO TID MS 07/16/18 baclofen 20 mg tablet 20 mg PO Q8H 08/11/21 levothyroxine 50 mcg tablet 50 mcg PO DAILY 08/11/21 oxycodone 10 mg tablet 10 mg PO Q6H PRN 05/24/23 clopidogrel 75 mg tablet 75 mg PO DAILY dose increased, pt is OUT of med, please fill #90 TABLETS 06/01/23 lisinopril 5 mg tablet 5 mg PO DAILY #30 tabs 11/02/23 dextromethorphan-guaifenesin ER 60 mg-1,200 mg tab,extend release,12hr (Mucinex DM) 1 tab PO Q12H 7 days #14 tabs 11/16/23 Physical Exam Narrative Seen and examined. Patient has mild cough. Nausea and vomiting and diarrhea has resolved. Kidney function getting better. Patient continues to smoke 5 cigarettes/day. Physical exam General: Alert, Oriented x3, Cooperative HEENT: Atraumatic, PERRLA, EOMI, Normocephalic Oral: No Gingival or Mucosal Lesions/ Ulcerations Neck: Supple, No JVD, Negative Carotid Bruits Lungs: Air entry diminished in bilateral lung bases. Mild coarse crepitations bilateral lungs Cardiovascular: Regular rate, Regular Rhythm, Normal S1, Normal S2, No murmurs Abdomen: Bowel Sounds Present, Soft, Non Tender, Non-Distended : No renal angle tenderness. No suprapubic tenderness. Extremities: No edema, Capillary Refill Less than 3 Seconds Skin: No rashes, No breakdown Musculoskeletal: Mild tenderness over the spine lower back and thigh area, chronic osteoporosis. ROM restricted at hips and spine. Neurological: Cranial nerves II-XII grossly intact, DTR 2+/4. No acute focal neurological deficit. Psych/Mental Status: Normal Affect, Appropriate. Weight / BMI Weight Weight: 119 lb 14.903 oz Body Mass Index (BMI) 19.9 ABG / Lab / Microbiology Data 11/16/23 05:50 11/16/23 05:50 Laboratory: Laboratory Results - last 24 hr 11/15/23 11:30: WBC 4.9, RBC 4.74, Hgb 13.7, Hct 40.9, MCV 86.3, MCH 28.9, MCHC 33.5, RDW Std Deviation 46.6 H, RDW Coeff of David 14.6, Plt Count 164, MPV 10.1, Immature Gran % (Auto) 0.600, Neut % (Auto) 70.4 H, Lymph % (Auto) 14.3 L, [place] % (Auto) 14.5 H, Eos % (Auto) 0.0, Baso % (Auto) 0.2, Absolute Neuts (auto) 3.4, Absolute Lymphs (auto) 0.70 L, Nucleated RBC % 0, Sodium 130 L, Potassium 3.9, Chloride 97 L, Carbon Dioxide 21.0, Anion Gap 12, BUN 64 H, Creatinine 2.51 H, Estim Creat Clear Calc 19.03, Est GFR (MDRD) Af Amer 24 L, Est GFR (MDRD) Non-Af 20 L, BUN/Creatinine Ratio 25.5 H, Glucose 80, Calcium 8.1 L, Total Bilirubin 0.30, AST 34, ALT 27, Alkaline Phosphatase 104, Total Protein 6.9, Albumin 3.3, Globulin 3.6, Albumin/Globulin Ratio 0.9, Lipase 60, Procalcitonin 0.24 H 11/15/23 15:55: Urine Color Yellow, Urine Clarity Sl. Cloudy, Urine pH 5.0, Ur Specific [place] 1.015, Urine Protein 15 H, Urine Glucose (UA) Normal, Urine Ketones 5 H, Urine Occult Blood 25 H, Urine Nitrite Negative, Urine Bilirubin Negative, Urine Urobilinogen Normal, Ur Leukocyte Esterase 100 H, Urine RBC 0-5 SEEN, Urine WBC 5-10 SEEN, Ur Squamous Epith Cells 5-10 SEEN, Calcium Oxalate Crystal RARE, Urine Bacteria RARE, Urine Mucus 0 SEEN 11/16/23 05:50: WBC 3.8 L, RBC 4.20, Hgb 12.2, Hct 37.1, MCV 88.3, MCH 29.0, MCHC 32.9, RDW Std Deviation 48.2 H, RDW Coeff of David 14.8 H, Plt Count 136 L, MPV 10.1, Immature Gran % (Auto) 0.500, Neut % (Auto) 57.7, Lymph % (Auto) 25.5, [place] % (Auto) 15.7 H, Eos % (Auto) 0.3, Baso % (Auto) 0.3, Absolute Neuts (auto) 2.2, Absolute Lymphs (auto) 0.96, Nucleated RBC % 0, Sodium 135 L, Potassium 3.6, Chloride 107, Carbon Dioxide 21.0, Anion Gap 7, BUN 42 H, Creatinine 1.59 H , Estim Creat Clear Calc 28.68, Est GFR (MDRD) Af Amer 41 L, Est GFR (MDRD) Non- Af 34 L, BUN/Creatinine Ratio 26.4 H, Glucose 73 L, Calcium 7.4 L, Total Bilirubin 0.40, AST 28, ALT 23, Alkaline Phosphatase 90, Total Protein 5.9 L, Albumin 2.9 L, Globulin 3.0, Albumin/Globulin Ratio 1.0 Microbiology: Microbiology 11/15/23 12:46 Mucosa - Nasopharyngeal SARS-CoV-2, Influenza & RSV (PCR) - Final Influenzae A Radiography Diagnostic Testing: Radiology Impression Chest X-Ray 11/15/23 12:43 IMPRESSION: Minimal atelectasis and/or possible evolving pneumonia within the left lower lung. Electronically Signed: Niki Mojica MD at 13:03 EST , D/C Instructions Discharge Diet: No restrictions Weight Bearing Status: Weight bearing as tolerated Call your doctor if you observe: Fever of 101 or Higher, Coldness, Increased Pain, Numbness or Tingling, Change in Color, Inability to urinate, Inability to have a bowel movement, Using more than 1 pad per hour, Shortness of breath, Dizziness, Fainting spells, Swelling in the ankles, Chest pain, Prolonged hiccupping, Increased palpitations (irregular heartbeat) and Calf discomfort When: IN 2 WEEKS Meaningful Use Info Meaningful Use Diagnoses (Choose all that apply): None applicable Discharge Plan Admission Admit Date/Time: 11/15/23 15:13 Primary Reason for Your Visit: Influenza A bronchitis Attending Provider: Hi Garcia Primary Care Provider: Daron Benton Consulting Providers: Sommer Resendiz Instructions Additional Instructions / Restrictions: Continue incentive spirometry and PEP for 1 week Discharge Orders/Prescriptions Prescriptions: New dextromethorphan-guaifenesin [Mucinex DM] 60-1,200 mg tablet extended release 12 hr 1 tab PO Q12H 7 Days Qty: 14 0RF Continued gabapentin 800 mg tablet 800 mg PO TID baclofen 20 mg tablet 20 mg PO Q8H levothyroxine 50 mcg tablet 50 mcg PO DAILY Patient Comments: take 1 tablet by mouth once daily oxycodone 10 mg tablet 10 mg PO Q6H PRN Patient Comments: take 1 tablet by mouth twice a day if needed for pain cholecalciferol (vitamin D3) 5,000 UNIT tablet 5,000 unit PO DAILY Patient Comments: supplement clopidogrel 75 mg tablet 75 mg PO DAILY Qty: 90 3RF Held lisinopril 5 mg tablet 5 mg PO DAILY Qty: 30 11RF Hold Instructions: Hold for 7 days. Referrals / Follow Up: Daron Benton MD [Primary Care Provider] - Disposition Disposition (needs filled in before D/C Order can be placed): Home, Self Care Charges/Coding Addendum Addendum: Patient was admitted as inpatient but was discharged because of recovery of hyponatremia and CHRISTOPHER with IV fluid replacement sooner than expected at time of admission. Patient wants to go home. Visit Charges Inpatient E&M: 84944 Disch Hosp >30min
--- NOTE | 2023-11-16 10:43 | PHA.DC.MR.R ---
Pharmacy [place] Med Reconciliation Pharmacy Service has performed discharge medication reconciliation for this patient. The patient's discharge medication list was reviewed for discrepancies and discrepancies were resolved. Medications at Discharge Home Medications cholecalciferol (vitamin D3) 125 mcg (5,000 unit) tablet 5,000 unit PO DAILY supplement 12/16/13 gabapentin 800 mg tablet 800 mg PO TID MS 07/16/18 baclofen 20 mg tablet 20 mg PO Q8H 08/11/21 levothyroxine 50 mcg tablet 50 mcg PO DAILY 08/11/21 oxycodone 10 mg tablet 10 mg PO Q6H PRN 05/24/23 clopidogrel 75 mg tablet 75 mg PO DAILY dose increased, pt is OUT of med, please fill #90 TABLETS 06/01/23 lisinopril 5 mg tablet 5 mg PO DAILY #30 tabs 11/02/23 dextromethorphan-guaifenesin ER 60 mg-1,200 mg tab,extend release,12hr (Mucinex DM) 1 tab PO Q12H 7 days #14 tabs 11/16/23
--- NOTE | 2023-11-16 11:28 | CASEMGMT ---
Social Work Pt has [employer] services, Tena Monika is pt's medical case worker. SW attempted to call her, went to voicemail. SW left a [facility] DEBI Kendrick
== END 2023-11-16 11:42 | disposition home or self-care (01) | DRG 683 ==
LOC: ED 15:10 → MS3 15:28
PROVIDERS: Admitting Provider Family Medicine; Emergency Provider Emergency Medicine; PCP Family Medicine; Visit Provider Internal Medicine
DX: N17.9 Acute kidney failure, unspecified (principal); E87.1 Hypo-osmolality and hyponatremia; E87.8 Other disorders of electrolyte and fluid balance, not elsewhere classified; G35 Multiple sclerosis; I73.9 Peripheral vascular disease, unspecified; N18.31 Chronic kidney disease, stage 3a; L40.50 Arthropathic psoriasis, unspecified; E89.0 Postprocedural hypothyroidism; I12.9 Hypertensive chronic kidney disease with stage 1 through stage 4 chronic kidney disease, or unspecified chronic kidney disease; I65.23 Occlusion and stenosis of bilateral carotid arteries; J10.1 Influenza due to other identified influenza virus with other respiratory manifestations; I25.10 Atherosclerotic heart disease of native coronary artery without angina pectoris; E78.5 Hyperlipidemia, unspecified; E86.1 Hypovolemia; F17.210 Nicotine dependence, cigarettes, uncomplicated; M81.0 Age-related osteoporosis without current pathological fracture; G89.4 Chronic pain syndrome; Z95.820 Peripheral vascular angioplasty status with implants and grafts; Z79.02 Long term (current) use of antithrombotics/antiplatelets; Z79.891 Long term (current) use of opiate analgesic; Z79.899 Other long term (current) drug therapy; Z86.73 Personal history of transient ischemic attack (TIA), and cerebral infarction without residual deficits; Z86.79 Personal history of other diseases of the circulatory system
CPT/HCPCS: 36415; 71045; 80053; 81001; 83690; 84145; 85025; 87631; 93005; 97161; 97165; 99283; J7030; A4216; J2405

== ENCOUNTER 2023-11-18 11:42 | Inpatient (IN) | payer MEDICARE, MEDICAID, SELFPAY ==
[2023-11-18] VITALS (7 sets, daily range): BP systolic 130–171; BP diastolic 75–101; PULSE 60–106; RESP 16–20; TEMP 36.2–36.8; O2SAT 93–97; BMI 20.9; BMI 20.1
--- NOTE | 2023-11-18 11:52 | RAD_ITS ---
EXAM: XR CHEST, 1 VIEW CLINICAL INDICATION: cough TECHNIQUE: Frontal view of the chest. COMPARISON: XR Chest dated 11/16/2023 FINDINGS: LUNGS AND PLEURAL SPACES: Minor bibasilar atelectasis. Focal parenchymal density right upper lobe may represent acute or chronic inflammatory change. HEART: Normal heart size. MEDIASTINUM: No mediastinal or hilar mass. BONES/JOINTS: Stable dextroscoliosis of the thoracic spine. RAD/Chest 1 View (Portable) IMPRESSION: Small focus of acute or chronic inflammatory change right upper lobe. Minor bibasilar atelectasis. Electronically Signed: Chago Mcintyre MD at 13:04 EST ,
--- NOTE | 2023-11-18 11:53 | EKG12_ITS ---
Test Reason : TACHYCARDIA Blood Pressure : / mmHG Vent. Rate : 102 BPM Atrial Rate : 000 BPM P-R Int : 000 ms QRS Dur : 090 ms QT Int : 332 ms P-R-T Axes : 000 047 056 degrees QTc Int : 432 ms Atrial fibrillation with rapid ventricular response Nonspecific ST abnormality Abnormal ECG Confirmed by OTILIA FOX, MAYI ([id number]), news editor ADI CORDERO ([id number]) on 11/20/2023 8:32:52 AM Referred By: WAQAR Confirmed By:MAYI BINGHAM MD
--- NOTE | 2023-11-18 12:03 | EX.ED.DYSGE1 ---
HPI History of Present Illness Chief Complaint: Weakness Informant: patient Narrative Narrative: Patient presents with multiple complaints. She started with some cough myalgias about 7 days ago. She was diagnosed with influenza A. She was admitted here for generalized weakness hyponatremia. She states when she went home she was feeling a little bit better. But now she feels worse again. She states that she has had some really dark stools for several days. Evidently this started in the hospital but she did not tell anyone. No red stool. She is on Plavix. No history of GI bleed. She is not having abdominal pain. She still does get some nausea. Mostly is when she sits up quickly. But she is not vomiting now. She also complains of some generalized soreness around her chest and upper back. She has never had heart disease but she has had multiple vascular problems including peripheral artery disease and she has had carotid endarterectomies. When we get the EKG, we asked and she states she has never had atrial fibrillation. [facility] Medical History Angina pectoris Bilateral carotid artery stenosis Chronic pain syndrome Coronary artery disease Essential (primary) hypertension Fatty liver GERD (gastroesophageal reflux disease) Goiter History of transient ischemic attack (TIA) HLD (hyperlipidemia) Hypothyroidism Multiple sclerosis Nonobstructive atherosclerosis of coronary artery Nonsustained paroxysmal supraventricular tachycardia Osteoarthritis Osteoporosis Peripheral vascular occlusive disease Psoriasis Psoriatic arthritis Smoker Thrombocytopenia TIA (transient ischemic attack) Home Medications cholecalciferol (vitamin D3) 125 mcg (5,000 unit) tablet 5,000 unit PO DAILY supplement 12/16/13 [History Last Taken 07/16/19] gabapentin 800 mg tablet 800 mg PO TID MS 07/16/18 [History Last Taken 07/16/19] baclofen 20 mg tablet 20 mg PO Q8H 08/11/21 [History Last Taken 01/18/22] levothyroxine 50 mcg tablet 50 mcg PO DAILY 08/11/21 [History Last Taken 01/18/22] oxycodone 10 mg tablet 10 mg PO Q6H PRN 05/24/23 [History Last Taken Unknown] clopidogrel 75 mg tablet 75 mg PO DAILY dose increased, pt is OUT of med, please fill #[id number] TABLETS 06/01/23 [Rx Last Taken Unknown] lisinopril 5 mg tablet 5 mg PO DAILY #30 tabs 11/02/23 [Rx Last Taken Unknown] dextromethorphan-guaifenesin ER 60 mg-1,200 mg tab,extend release,12hr (Mucinex DM) 1 tab PO Q12H 7 days #14 tabs 11/16/23 [Rx Last Taken Unknown] Allergy/AdvReac Type Severity Reaction Status Date / Time colestipol [From Colestid] Allergy Mild unknown Verified 11/15/23 11:27 pregabalin [From Lyrica] Allergy Mild Hives Verified 11/15/23 11:27 amitriptyline Allergy Rash Verified 11/15/23 11:27 temazepam [From Restoril] AdvReac Mild Nausea/Vom/ Verified 11/15/23 11:27 Diarrhea Antihistamines - Alkylamine AdvReac Nausea/Vom/ Verified 11/15/23 11:27 Diarrhea Antihistamines - Ethanolamine AdvReac Nausea/Vom/ Verified 11/15/23 11:27 Diarrhea Antihistamines - AdvReac Nausea/Vom/ Verified 11/15/23 11:27 Ethylenediamine Diarrhea Antihistamines - Piperazine AdvReac Nausea/Vom/ Verified 11/15/23 11:27 Diarrhea Antihistamines - Piperidine AdvReac Nausea/Vom/ Verified 11/15/23 11:27 Diarrhea aspirin AdvReac I'M ON Verified 11/15/23 11:27 BLOOD THINNERS codeine AdvReac Nausea Verified 11/15/23 11:27 Corticosteroids AdvReac Upset Verified 11/15/23 11:27 (Glucocorticoids) Stomach morphine AdvReac Nausea Verified 11/15/23 11:27 Vtcgnut-WEM-LiP Reductase AdvReac Nausea Verified 11/15/23 11:27 Inhibitor [Jqhruhq-Skc-Vrt Reductase Inhibitor] Family History Mother Cancer CAD (coronary artery disease) Brain tumor Grandfather CVA (cerebral vascular accident) Father CAD (coronary artery disease) Ruptured abdominal aortic aneurysm (AAA) Sister Brain aneurysm Surgical History Brain aneurysm Fracture of right lower leg H/O hemorrhoidectomy H/O: History of angioplasty of peripheral vessel History of angioplasty of peripheral vessel (07/11/19) History of appendectomy History of section History of cholecystectomy History of hemorrhoidectomy History of hysterectomy History of left breast biopsy History of left heart catheterization (01/25/15) History of left-sided carotid endarterectomy History of partial thyroidectomy (11/30/05) History of right-sided carotid endarterectomy S/P coil embolization of cerebral aneurysm S/P hysterectomy S/P insertion of iliac artery stent S/P thyroidectomy Stenosis of left subclavian artery Social History household members: none Smoking Status: Former smoker alcohol intake: never caffeine: Yes Type: coffee and tea ROS ROS ED ROS Narrative A complete review of systems was performed and is negative except as documented in the history of present illness. Some specific details below. Constitutional: She still has some chills. Highest temperature has been about 99. EYE: No discharge, visual complaints, or pain. ENT: No difficulty swallowing. No swelling. No pain. No reflux symptoms. CV: She describes some nonspecific heaviness in her chest off and on for the last day. This also occurs in her upper back. Is not tearing or ripping or severe. Respiratory: She is still coughing. She is bringing up a little bit of clear sputum. GI: No abdominal pain. But she has had some nausea without vomiting. She is also still having softer bowel movements. They are also black. Evidently they turn black before she started taking Pepto-Bismol. : No frequency dysuria or hematuria. Musculoskeletal: No recent trauma. She does have some diffuse myalgias. Skin: No rash. Nondiaphoretic. Neuro: No weakness or numbness. Endocrine: No polyuria or polydipsia. EXAM Physical Exam Narrative Exam Narrative: CONSTITUTIONAL: Patient is nontoxic in appearance. The patient looks comfortable. Work of breathing looks normal. HEENT: No notable trauma. Mucous membranes do look a bit dry. No sinus tenderness. No indication of pain with swallowing. EYES: No conjunctival injection. NECK: No JVD. Prior healed surgery from carotid endarterectomy. CARDIOVASCULAR: Mildly tachycardic and irregular. She has a history of a murmur but I am not actually able to hear that now. RESPIRATORY: No respiratory distress. Breathing is unlabored. No wheezes. No rhonchi. No rales. No pain with a deep breath. No chest wall tenderness. GASTROINTESTINAL: Not distended. Bowel sounds are normal. No tenderness. No guarding. No rebound. No palpable mass. No bruit is heard. GENITOURINARY: No tenderness over the bladder. No CVA tenderness. MUSCULOSKELETAL: Atraumatic. No peripheral edema. NEUROLOGICAL: Patient is alert and appropriate. No focal deficit noted. SKIN: No noted rashes. No diaphoresis. PSYCHIATRIC: Patient is calm. Mood is appropriate. Const Vital Signs: 11/18/23 11:43 11/18/23 11:47 Temperature 97.7 F L Temperature Source Temporal Pulse Rate 106 H Respiratory Rate 20 H Respiratory Effort Short of Breath Blood Pressure 171/101 H Blood Pressure Mean 124 Pulse Ox 96 Oxygen Delivery Method Room Air MDM MDM MDM Narrative Medical decision making narrative: My independent interpretation is patient's single view chest x-ray shows normal abnormalities. Final reading was a small focus of acute or chronic inflammatory change in the right upper lobe. Patient does not have symptoms of an acute pneumonia really. Patient's CBC is overall normal except minimally low platelets. Hemoglobin is stable. Patient's electrolytes show no marked elevated Patient's trip and is elevated at 60. Patient's liver function test are overall normal Patient's urine shows no sign of infection. Patient has now gone back into sinus rhythm at this moment. But she had chest pressure soreness across her back and slight increased dyspnea with atrial fibrillation and has an elevated troponin. She has a history of significant vascular disease although she has never had documented heart disease she tells me. I will also send off a guaiac study. I need to have standby and we will get this sent off. But with her above symptoms new onset fib and troponin I think she does need to come in the hospital Case was asked with hospitalist. Lab Data Attestation: I reviewed the patient's lab results. Labs: Laboratory Results - last 24 hr 11/18/23 11/18/23 11:57 13:28 WBC 5.5 RBC 4.56 Hgb 12.9 Hct 39.1 MCV 85.7 MCH 28.3 MCHC 33.0 RDW Std Deviation 46.5 H RDW Coeff of David 14.8 H Plt Count 123 L MPV 10.3 Immature Gran % (Auto) 0.700 Neut % (Auto) 66.4 Lymph % (Auto) 19.4 Atkinson % (Auto) 12.9 H Eos % (Auto) 0.2 Baso % (Auto) 0.4 Absolute Neuts (auto) 3.7 Absolute Lymphs (auto) 1.07 Nucleated RBC % 0 Sodium 140 Potassium 3.5 Chloride 110 H Carbon Dioxide 22.0 Anion Gap 8 BUN 12 Creatinine 0.99 Estim Creat Clear Calc 48.26 Est GFR (MDRD) Af Amer 72 Est GFR (MDRD) Non-Af 59 L BUN/Creatinine Ratio 12.2 Glucose 116 H Calcium 8.0 L Total Bilirubin 0.40 AST 17 ALT 18 Alkaline Phosphatase 93 Troponin I High Sens 60 H Total Protein 6.5 Albumin 3.1 L Globulin 3.4 Albumin/Globulin Ratio 0.9 Urine Color Yellow Urine Clarity Clear Urine pH 6.0 Ur Specific Downing 1.015 Urine Protein Negative Urine Glucose (UA) Normal Urine Ketones 5 H Urine Occult Blood 25 H Urine Nitrite Negative Urine Bilirubin Negative Urine Urobilinogen Normal Ur Leukocyte Esterase 25 H Urine RBC 0-5 SEEN Urine WBC 0-5 SEEN Ur Squamous Epith Cells 5-10 SEEN Urine Bacteria 1+ Urine Mucus 0 SEEN Radiography Diagnostic Testing: Clinical Impression(s) from Imaging Studies Chest X-Ray 11/18/23 11:52 IMPRESSION: Small focus of acute or chronic inflammatory change right upper lobe. Minor bibasilar atelectasis. Electronically Signed: Chago Mcintyre MD at 13:04 EST , EKG Initial EKG: Comments: My independent interpretation of the patient's EKG shows atrial fibrillation with mildly tachycardic rate at 102. No ventricular ectopy. No acute ST elevation or depression. QRS duration and QTc are normal. Management Discussion w/another healthcare provider: Hospitalist Discharge Plan Dx/Rx/DC Orders Clinical Impression: Elevated troponin, New onset atrial fibrillation, Chest pressure, Influenza A Disposition Disposition: Acute Care [facility]
[2023-11-18 12:07] LABS: Absolute Lymphocyte Count 1.07 X10^3/uL (0.83-4.51); Absolute Neutrophil Count 3.7 X10^3/uL (2.0-7.7); Basophil# 0.02 X10^3/uL; Basophil% 0.4 % (0-1); Eosinophil# 0.01 X10^3/uL; Eosinophils% 0.2 % (0-5); Hematocrit 39.1 % (37-47); Hemoglobin 12.9 g/dL (12.0-15.0); Lymphocyte # 1.07 X10^3/ul (0.83-4.51); Lymphocyte % 19.4 % (19-41); Mean Corpuscular Hgb 28.3 pg (27.0-32.0); Mean Corpuscular Volume 85.7 fL (81-99); Mean Platelet Vol. 10.3 fl (6.2-12.0); Monocyte# 0.71 X10^3/uL; Monocyte% 12.9 % (0-10); NRBC Flagged by Analyzer 0 % (0-5); Neutrophil # 3.67 X10^3/uL (2.7-7.7); Neutrophil % 66.4 % (47-70); Platelet Count 123 K/mm3 (150-450); RBC Distribution Width CV 14.8 % (11.6-14.6); RBC Distribution Width SD 46.5 fl (35.1-43.9); Red Blood Count 4.56 M/mm3 (4.2-5.4); White Blood Count 5.5 K/mm3 (4.4-11.0)
--- OUTSIDE RECORDS SUMMARY | 2023-11-18 12:09 | XMS RPT_ITS | CCD ---
Author Name Unknown Address [address] [place] [address] Organization [facility] Care Team Providers Care Pulmonary Disease Specialist Name Role Phone LYNNE LONGORIA Unavailable UnavailZHANE Mancera Unavailable Unavailable LYNNE LONGORIA Unavailable Unavailable ZHANE DE Unavailable Unavailable ZHANE DE Unavailable Unavailable Jacinda Benton Primary Care Provider [phone] MACEY MAIN Attending Unavailable JACINDA BENTON Primary Care Unavailable JACINDA BENTON Primary Care Unavailable MACEY MAIN Attending Unavailable CRISSY SCHMITZ Attending Unavailable JACINDA BENTON Primary Care Unavailable TYE BARNETT Attending Unavailable Allergies Allergy Classification Reported Allergen(s) Allergy Type Date of Onset Reaction(s) Facility (3 sources) Antihistamines; Translations: [ANTIHISTAMINES] Propensity to adverse reactions to drug (disorder) 04-28-20 04 [facility] Repository (2 sources) clopidogrel; Translations: [CLOPIDOGREL BISULFATE] Drug Allergy 12-18-19 12 [facility] Repository (8 sources) codeine; Translations: [CODEINE] Drug Allergy 04-28-20 04 [facility] Repository (2 sources) fenofibrate; Translations: [FENOFIBRATE MICRONIZED] Drug Allergy 04-27-20 11 [facility] Repository (7 sources) fentaNYL; Translations: [FENTANYL] Drug Allergy 02-19-20 12 [facility] Repository (2 sources) Hmg-Coa Reductase Inhibitors (Statins); Translations: [VYWXSJW-QNQ-UKS REDUCTASE INHIBITORS] Propensity to adverse reactions to drug (disorder) 04-27-20 11 [facility] Repository (8 sources) morphine; Translations: [MORPHINE] Drug Allergy 04-28-20 04 Vomiting [facility] Repository (7 sources) predniSONE; Translations: [PREDNISONE] Drug Allergy 12-15-19 09 [facility] Repository (7 sources) salicylic acid; Translations: [SALICYLATES] Drug Allergy 12-04-19 09 [facility] Repository (1 source) Aspirin; Translations: [aspirin] Drug Allergy Ulcer (morphologic abnormality) [facility] (1 source) Colestipol; Translations: [colestipol] Drug Allergy [facility] (1 source) HMG-CoA reductase inhibitor; Translations: [statins] Drug allergy [facility] (5 sources) Amitriptyline Drug Allergy 03-12-20 19 Rash [facility] (5 sources) clopidogrel Drug Allergy 12-18-19 12 [facility] (5 sources) Fenofibrate Drug Allergy 04-27-20 11 [facility] (5 sources) Antihistamines, Diphenhydramine-T ype Drug Intolerance 09-17-20 [facility] Medications Current Medications Medication Drug Class(es) [...] Pressure Non-Invasive 66 1 TYE BARNETT MD [facility] 11-09-2022 14:07-0500 Heart rate 56 /min TYE BARNETT MD [facility] 11-09-2022 14:07-0500 Systolic Blood Pressure Non-Invasive 155 1 TYE BARNETT MD [facility] 11-09-2022 13:42-0500 Diastolic Blood Pressure Non-Invasive 69 1 TYE BARNETT MD [facility] 11-09-2022 13:42-0500 Heart rate 58 /min TYE BARNETT MD [facility] 11-09-2022 13:42-0500 Systolic Blood Pressure Non-Invasive 156 1 TYE BARNETT MD [facility] 11-09-2022 13:14-0500 Diastolic Blood Pressure Non-Invasive 86 1 TYE BARNETT MD [facility] 11-09-2022 13:14-0500 Heart rate 54 /min TYE BARNETT MD [facility] 11-09-2022 13:14-0500 Systolic Blood Pressure Non-Invasive 175 1 TYE BARNETT MD [facility] 11-09-2022 11:25-0500 Reason For Taking VItal Signs TYE BARNETT MD [facility] 11-09-2022 11:25-0500 Respiratory rate 16 /min TYE BARNETT MD [facility] 11-09-2022 11:03-0500 Respiratory rate 16 /min TYE BARNETT MD [facility] 11-09-2022 10:38-0500 Respiratory rate 16 /min TYE BARNETT MD [facility] 11-09-2022 06:29-0500 Blood Pressure Location TYE BARNETT MD [facility] 11-09-2022 06:29-0500 Body height 167.6 cm TYE BARNETT MD [facility] 11-09-2022 06:29-0500 Body temperature 97.7 [degF] TYE BARNETT MD [facility] 11-09-2022 06:29-0500 Body weight 54.8 kg TYE BARNETT MD [facility] 11-09-2022 06:29-0500 Body weight 19.51 kg/m2 TYE BARNETT MD [facility] Encounters Encounter Date Encounter Type Care Provider Facility Start: 10-26-2023 End: 10-26-2023 ambulatory TYE BARNETT Facility:A Start: 10-05-2023 End: 10-06-2023 ambulatory [facility] Start: 10-05-2023 End: 10-05-2023 Office outpatient visit 40 minutes Macey Main MD Work Phone: [facility] Procedures Date Procedure Procedure Detail [...] DTaP/Tdap/Td Vaccines (3 - Td or Tdap) [facility] Start: 07-20-2023 COVID-19 Vaccine ( season) COVID-19 Vaccine ( season) [facility] Start: 07-20-2023 Influenza vaccination Influenza Vacc ine (#1) [facility] Start: 04-19-2021 Lipid panel Lipid Panel [facility] Start: 2014 RSV Immunization age d 60 or older (1 - 1-dose 60+ series) RSV Immunization aged 60 or older (1 - 1-dose 60+ series) [facility] Start: 08-19-2009 Pneumococcal Vaccine : 65+ Years (2 - PCV) Pneumococcal Vaccine: 65+ Years (2 - PCV) [facility] Start: 2004 Zoster Vaccines (1 of 2) Zoster Vacc clifford (1 of 2) [facility] Start: 1994 Screening for malign ant neoplasm of breast Mammogram [facility] Start: 1972 Diabetes mellitus screening Diabetes Screening [facility] Start: 1972 Hepatitis C screening Hepatitis C Sc reening [facility] Start: 1966 Depression Screening Depression Scre ening [facility] Start: 1954 Medicare Advantage A nnual Wellness Visit (AWV) Medicare Advantage Annual Wellness Visit (AWV) [facility] Start: 1954 Screening for malign ant neoplasm of colon [facility] Start: 1954 Screening for osteoporosis Bone Dens ity Scan [facility] Start: 1954 Thyroid stimulating hormone measurement TSH Level [facility] Immunizations Immunization Date Immunization Notes Care Provider Fa cility 09-16-2022 influenza virus vacc ine, unspecified formulation Macey Main MD Work Phone: [facility] Payers Date Payer Category Payer Medicare [id number] 2022 Medicare [employer] [id number] 2022-Present [address] [place] [address] Medicare HMO [id number] 1955 Unknown [id number] Social History Date Type Detail Facility Tobacco smoking status NHIS Smokes tobacc o daily [facility] History of tobacco use Cigarette Smoker [facility] Start: 04-04-2023 End: 10-05-2023 Alcohol intake Ex-drinker (finding) [facility] Start: 04-04-2023 History of Social function [facility] Start: 04-04-2023 Tobacco use panel [facility] Start: 1955 Sex Assigned At Not on file S [facility] Functional Status Date Assessment Result Facility 11-09-2022 Functional Status Ambulating in room [facility] 11-09-2022 Functional Status [facility] 11-09-2022 Functional Status Maintained [facility] Mental Status Date Assessment Result Facility 11-09-2022 Mental Status Orientation Oriented x 4 [facility] 11-09-2022 [facility] 11-09-[address] [facility] Clinical Notes 02-09-2021 to 10-05-2023 Macey Main MD - 10/05/2023 3:00 PM ESTTelephone Encounter - Yanely Kwon MA - 10/05/2023 12:58 PM ESTTelephone Encounter - Yanely Kwon MA - 10/05/2023 12:58 PM EST Note Date & Type Note Facility 10-05-2023 History of Present illness Narrative Images from the original note were not included. [facility] [address] [place] [address] [facility] [address] Dept: [phone] Dept Loc: [phone] Patient was seen today via Telehealth by [...] stated that they are currently in the [facility]. If the patient is a minor, [...] TSH VITAMIN B12: No results found for: [id number] No results found for: PHENYTOIN , PHENOBARB , VALPROATE , CBMZ No results found for: LEVETIRACETA , FERRITIN , CRP , DENNIS , ANCA FERRITIN: No results found for: FERRITIN @RESULTINGLABINFO@ No components found for: TOPIRA No results found for: CHRISTIANO , IMMUNOGLOBUL , OLIGOBANDS No results found for: CNV99HM , HEPCAB No results found for: CRP , ANATITER , ANCA ---- @LASTAPPOINTMENTTHISPROV@ ECG 12 lead SINUS BRADYCARDIA PROBABLE LEFT ATRIAL ABNORMALITY No previous ECG available for comparison Electronically Signed On 04-05-2023 7:42:10 EDT by Juvenal Benton Patient Name: ANGÉLICA WALLER : 1955 [facility]#: [id number] Exam Date/Time: 04/04/2023 15:32 Procedure: CT HEAD [...] volume rendered reformats were obtained using a Tap[employer] workstation. Review of the axial source data [...] of the major intracranial arteries at the [place] of [place]. 6. No hemodynamically significant narrowing [...] arranging for studies. documented in this encounter [facility] 10-05-2023 Telephone encounter Note Patient has been scheduled and records are being faxed over. [facility] 10-05-2023 Miscellaneous Notes Patient has been scheduled and records are being faxed over. Get records from [facility]. OK to add her on at 3 PM as a real or a virtual visit Name of caller: Angélica Contact phone number: [phone] Relationship to Patient: patient Provider: DR Main Practice: [facility] Chief Complaint/Reason for Call: pt was at [facility] yesterday for an MS attack she is asking for IV steroids order infusion. She was started at the hospital and will need additional steroids. Please advise when order placed. Best time of day caller can be reached: AM Patient advised that office/PCP has 24-48 business hours to return their call: Yes documented in this encounter [facility] 10-05-2023 Telephone encounter Note Get records from [facility]. OK to add her on at 3 PM as a real or a virtual visit [facility] 10-05-2023 Telephone encounter Note Name of caller: Angélica Contact phone number: [phone] Relationship to Patient: patient Provider: DR Main Practice: [facility] Chief Complaint/Reason for Call: pt was at [facility] yesterday for an MS attack she is asking for IV steroids order infusion. She was started at the hospital and will need additional steroids. Please advise when order placed. Best time of day caller can be reached: AM Patient advised that office/PCP has 24-48 business hours to return their call: Yes [facility] 06-15-2023 Telephone encounter Note Medication name: baclofen (Lioresal) 20 MG tablet [[id number]] Order Details Dose: 20 mg Route: Oral [...] Original Order: baclofen (Lioresal) 20 MG tablet [[id number]] Providers Ordering and Authorizing Provider: Macey Main MD NEGRA #: [id number] Ordering User: Macey Main MD Pharmacy [facility] #[id number] [address] NEGRA #: -- Date of last office visit: 04/04/23 Date of next office visit: None Date of last refill: (see medication tab): 10/05/22 Updated/Validated preferred pharmacy: Yes Patient instructed to contact the pharmacy prior to picking up the medication: Yes [facility] 06-15-2023 Miscellaneous Notes Medication name: baclofen (Lioresal) 20 MG tablet [[id number]] Order Details Dose: 20 mg Route: Oral [...] Original Order: baclofen (Lioresal) 20 MG tablet [[id number]] Providers Ordering and Authorizing Provider: Macey Main MD NEGRA #: [id number] Ordering User: Macey Main MD [facility]acy [id number] [place] [id number] [address] NEGRA #: -- Date of last office visit: 04/04/23 Date of next office visit: None Date of last refill: (see medication tab): 10/05/22 Updated/Validated preferred pharmacy: Yes Patient instructed to contact the pharmacy prior to picking up the medication: Yes documented in this encounter [facility] 06-04-2023 Telephone encounter Note Rx renewed [facility] 06-04-2023 Miscellaneous Notes Rx renewed Please [...] the medication: Yes documented in this encounter [facility] 06-04-2023 Telephone encounter Note Please advise. [facility] 06-04-2023 Telephone encounter Note Medication name: [...] prior to picking up the medication: Yes [facility] 11-09-2022 Hospital Discharge instructions Patient Education [...] and water are not available, use hand putty worker. ?Change your dressing as told by your [...] the contrast dye from your body. Take jbll-joi-ayujghl and prescription medicines only as told by [...] 05/24/2006 Document Revised: 10/18/2018 Document Reviewed: 10/10/2017 [employer] Patient Education 2020 [employer] 11/09/2022 12:48:21 Moderate Conscious Sedation, Adult, [...] until you are awake and alert. Take upel-rgq-pynltyz and prescription medicines only as told by [...] 08/26/2014 Document Revised: 10/18/2018 Document Reviewed: 02/24/2017 [employer] Patient Education 2020 Effective Measure. Follow Up Care 10/27/2022 15:58:56 With:TYE BARNETT MD, [facility], Surgery, Vascular Surgeons Address: [facility] [address] [place] [phone] When: Unknown Comments:Follow-up as scheduled [facility] 11-09-2022 Summary of episode note Discharge Instructions Thank you for allowing [facility] to assist you with your healthcare needs. The following is important discharge information regarding your hospital visit. What to do next Follow Up Appointments Follow Up with TYE BARNETT MD, [facility], Surgery, Vascular Surgeons When Why: Follow-up as scheduled Where: [facility] [address] [facility] [address] [place] [address] The Following Activity and Diet [...] and water are not available, use hand putty worker. ? Change your dressing as told by [...] the contrast dye from your body. Take lqzn-hzm-bkarzhu and prescription medicines only as told by [...] 05/24/2006 Document Revised: 10/18/2018 Document Reviewed: 10/10/2017 [employer] Patient Education 2020 [employer] Moderate Conscious [...] until you are awake and alert. Take rehu-oqf-zoixtsx and prescription medicines only as told by [...] 08/26/2014 Document Revised: 10/18/2018 Document Reviewed: 02/24/2017 [employer] Patient Education 2020 Effective Measure. Additional Information VACCINATE! IT SAVES LIVES! Members of the community who have not yet received the COVID-19 vaccine and would like to receive it can visit one of [facility] vaccine clinics. There are many vaccine clinic locations within the [facility]. For locations and available times, please visit [email or web address].gov/. It is important to note that some COVID mobile vaccine clinics are held outdoors and may be canceled in rainy or stormy conditions. To learn more about pediatric vaccinations (ages 5-11), we invite you to visit the [facility] webpage. [email or web address] To learn more about the COVID-19 vaccine, we invite you to visit the [facility] website for a list of frequently asked questions. [email or web address] [email or web address] [facility] Patient Portal Access Instructions: Stay connected with your healthcare team and access your personal medical information anytime with the [facility] Patient Portal.If you would like a full copy of your medical records, please contact the [facility] Medical Records Department, Sunday through Sunday between 8a.m. and 4:30p.m. Please follow the directions below to access the portal: 1.Access the email account you provided upon registration to the hospital.2.Look for an invitation email from [facility].3.Open the email and access the invitation link: Accept Invitation to [facility].Fill in the required duarte to create your account. Sign into [email or web address] with your username and password that you [...] you will allow to register on the [facility] Patient Portal for access to your information. You can also access the [facility] Patient Portal on the [employer] jennifer. Simply click on Health Records under Health Data and then click on the Brand[employer] logo. HOW TO SAFELY DISPOSE OF PRESCRIPTION [...] Call your local pharmacy or go to [email or web address] to find one close to you.3.Make use of household items: Use cat litter or old coffee grounds to dispose medications if other options are not available. Mix your drugs with these household products, seal them in an airtight container and throw it into the garbage. Call [facility]: [phone] to be sure your drugs can be [...] aware that I should contact my doctor. 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 11-09-2022 Note ORIGINAL Images acquired, not reported on this accession number. [facility] 11-09-2022 Note ORIGINAL Images acquired, not reported on this accession number. [facility] 04-12-2021 Note HNO ID: [id number] Author: TOMMY Flores) Service: ? Author Type: Transportation Planner Type: Progress Notes Filed: 04/12/2021 2:14 PM [...] 2021 TIME: 2:13 PM [facility] 02-09-2021 Note HNO ID: [id number] Author: Alexander Regalado Service: ? Author Type: [...] risk for bone exposure. [facility] Evaluation + Plan note No data available for this section [facility] documented in this [facility] Diagnosis Multiple sclerosis (HCC) Multiple sclerosis [facility] Diagnosis Multiple sclerosis (HCC)- Primary Multiple sclerosis Cerebrovascular disease, unspecified Primary hypertension Unspecified essential hypertension documented in this encounter [facility] Health Summary Purpose Family History No [...] DATE CREATED AUTHOR AUTHOR'S ORGANIZ ATION 05/13/2018 [facility] DATE CREATED AUTHOR AUTHOR'S ORGANIZ ATION 12/13/2021 [facility] DATE CREATED AUTHOR AUTHOR'S ORGANIZ ATION 10/10/2023 [facility] DATE CREATED AUTHOR AUTHOR'S ORGANIZ ATION 11/15/2023 [facility] ([place]) Care Team (unrecognized sect ion and content) Care Team Related Persons Name: BHAVIK HONG Name: LOLA HONG Reason for Visit (unrecogniz ed section and content) Reason Onset Date Comments Med Refill 06/04/2023 Reason Onset Date Comments Med Refill 06/15/2023 Reason Onset Date Comments Orders 10/05/2023 Reason Comments Hospital Follow-up Care Teams (unrecognized sec tion and content) Pulmonary Disease Specialist Relationship Specialty Start Date End Date Jacinda Benton [address] [facility] [address] [place] [phone] PCP - General 06/23/20 Pulmonary Disease Specialist Relationship Specialty Start Date End Date Jacinda Benton [address] [facility] [address] [place] [phone] PCP - General 06/23/20 Pulmonary Disease Specialist Relationship Specialty Start Date End Date Jacinda Benton [address] [place] [address] [place] [phone] PCP - General 06/23/20 FOR RECORDS PERTAINING [...] BE BASED ON THE PRIMARY CLINICAL RECORDS. [facility]. provides no warranty or guarantee of the accuracy or completeness of information in this document.
[2023-11-18] MEDS: 0.9% Normal Saline (1000mL) 1,000 ML 1000 ML IV (12:17)
[2023-11-18 12:23] LABS: ALB/GLOB Ratio 0.9 RATIO (0.9-2.4); AST(SGOT) 17 U/L (15-37); Alanine Aminotransfer ALT/SGPT 18 U/L (13-56); Albumin, Serum 3.1 g/dL (3.2-5.0); Alkaline Phosphatase 93 U/L (45-117); Anion Gap 8 (5-15); BUN 12 mg/dL (7-18); BUN/Creat Ratio 12.2 RATIO (10-20); Chloride 110 mmol/L (98-107); Creatinine, Serum 0.99 mg/dL (0.55-1.02); EST Glomerular Filtration Rate 59 mL/min (>60); Est Glom Filt Rate - Afr Amer 72 mL/min (>60); Estimated Creatinine Clearance 48.26 ml/min; Globulin 3.4 g/dL (2.2-4.2); Glucose 116 mg/dL (74-106); Potassium 3.5 mmol/L (3.5-5.1); Protein, Total 6.5 g/dL (6.4-8.2); Sodium Level 140 mmol/L (136-145); Troponin-I HS 60 pg/mL (3.0-54.0)
[2023-11-18 13:34] LABS: Mucous, Urine 0 SEEN /hpf (<or=2+)
[2023-11-18 13:41] LABS: Color, Urine Yellow (Yellow); Glucose, Dipstick Normal (Normal); Ketone-Dipstick 5 mg/dl (Negative); Leukocyte Esterase-Dipstick 25 /ul (Negative); Nitrite-Dipstick Negative (Negative); Occult Blood-Urine 25 /ul (Negative); Protein-Dipstick Negative (Negative); Specific Gravity, Urine 1.015 (1.002-1.030); Urine Bilirubin Dipstick Negative (Negative); Urine Clarity Clear (Clear); Urine Urobilinogen Normal (Normal)
[2023-11-18 13:53] LABS: Bacteria 1+ /hpf (None Seen); Red Blood Cells-Urine 0-5 SEEN /hpf (0-5); Squamous Epithelial Cells - UA 5-10 SEEN /hpf (5-10); White Blood Cells 0-5 SEEN /hpf (0-5)
[2023-11-18] MEDS: Ondansetron 4 MG/2 ML Vial IV (14:00)
--- NOTE | 2023-11-18 14:13 | PCM.HP.STD ---
HPI - General General Date of Admission: 11/18/23 Date of Service: 11/18/23 Chief Complaint: Fatigue, malaise, dark stools. HPI Narrative The patient is a 68 y/o F w/ PMHx: Hx Cerebral aneurysm, Chronic pain syndrome, HTN, HLD, Hx TIA, Multiple Sclerosis, Nonobstructive CAD, Psoriatic arthritis, PAD, NS SVT, GERD, Hypothyroidism, Carotid disease, Tobacco use, admitted 11/15/23-11/16/23 with influenza A and acute kidney injury associated to now represents to the [facility] ED on 11/18/23 with history of initially feeling improved due to discharge however the last 24 hours she has been feeling worse with noted dark stools on Plavix with no history of previous history of GI bleed with no abdominal pain with still some mild persistent nausea mostly when she moves quickly but no emesis currently with generalized discomfort and noted soreness around her chest and upper back prompting eventual ED reevaluation. Workup in the ED included T97.7, heart rate 106, BP 171/101, respiratory rate 20, 96% on room air, CBC with WBC 5.5, hemoglobin 12.9, platelet 123 without marked shift, CMP with glucose 116, BUN/creatinine 12/0.99, GFR 59, hepatic profile not marked appearing, troponin 60 with recent presentation with no troponin obtained of note and last noted 10/05/2023 troponin 8, urinalysis with specific remedy 1.015, ketone 5, occult blood 25, negative nitrate, leukocyte esterase 25 with no marked urine WBCs with 5-10 squamous epithelial cells this poor sample with 1+ bacteria noted, chest x-ray with a small focus of acute or chronic inflammatory change right upper lobe and minor bibasilar atelectasis, EKG with new onset atrial fibrillation with rate 102 with no acute evidence of ischemia. In the ED patient administered 1 L normal saline and Zofran 4 mg IV x 1. [facility] Medical History Angina pectoris Bilateral carotid artery stenosis Chronic pain syndrome Coronary artery disease Essential (primary) hypertension Fatty liver GERD (gastroesophageal reflux disease) Goiter History of transient ischemic attack (TIA) HLD (hyperlipidemia) Hypothyroidism Multiple sclerosis Nonobstructive atherosclerosis of coronary artery Nonsustained paroxysmal supraventricular tachycardia Osteoarthritis Osteoporosis Peripheral vascular occlusive disease Psoriasis Psoriatic arthritis Smoker Thrombocytopenia TIA (transient ischemic attack) Home Medications cholecalciferol (vitamin D3) 125 mcg (5,000 unit) tablet 5,000 unit PO DAILY supplement 12/16/13 [History Last Taken 11/17/23] gabapentin 800 mg tablet 800 mg PO TID MS 07/16/18 [History Last Taken 11/18/23] baclofen 20 mg tablet 20 mg PO Q8H MS 08/11/21 [History Last Taken 11/18/23] levothyroxine 50 mcg tablet 50 mcg PO DAILY thyroid 08/11/21 [History Last Taken 11/18/23] oxycodone 10 mg tablet 10 mg PO Q6H PRN pain 05/24/23 [History Last Taken 11/18/23] clopidogrel 75 mg tablet 75 mg PO DAILY dose increased, pt is OUT of med, please fill #90 TABLETS 06/01/23 [Rx Last Taken 11/18/23] lisinopril 5 mg tablet 5 mg PO DAILY blood pressure #30 tabs 11/02/23 [Rx Last Taken 11/18/23] dextromethorphan-guaifenesin ER 60 mg-1,200 mg tab,extend release,12hr (Mucinex DM) 1 tab PO Q12H cough/congest 7 days #14 tabs 11/16/23 [Rx Last Taken 11/17/23] Allergy/AdvReac Type Severity Reaction Status Date / Time colestipol [From Colestid] Allergy Mild unknown Verified 11/15/23 11:27 pregabalin [From Lyrica] Allergy Mild Hives Verified 11/15/23 11:27 amitriptyline Allergy Rash Verified 11/15/23 11:27 temazepam [From Restoril] AdvReac Mild Nausea/Vom/ Verified 11/15/23 11:27 Diarrhea Antihistamines - Alkylamine AdvReac Nausea/Vom/ Verified 11/15/23 11:27 Diarrhea Antihistamines - Ethanolamine AdvReac Nausea/Vom/ Verified 11/15/23 11:27 Diarrhea Antihistamines - AdvReac Nausea/Vom/ Verified 11/15/23 11:27 Ethylenediamine Diarrhea Antihistamines - Piperazine AdvReac Nausea/Vom/ Verified 11/15/23 11:27 Diarrhea Antihistamines - Piperidine AdvReac Nausea/Vom/ Verified 11/15/23 11:27 Diarrhea aspirin AdvReac I'M ON Verified 11/15/23 11:27 BLOOD THINNERS codeine AdvReac Nausea Verified 11/15/23 11:27 Corticosteroids AdvReac Upset Verified 11/15/23 11:27 (Glucocorticoids) Stomach morphine AdvReac Nausea Verified 11/15/23 11:27 Grlsdzr-DQC-FvV Reductase AdvReac Nausea Verified 11/15/23 11:27 Inhibitor [Jeugbhj-Oco-Npo Reductase Inhibitor] Family History Mother Cancer CAD (coronary artery disease) Brain tumor Grandfather CVA (cerebral vascular accident) Father CAD (coronary artery disease) Ruptured abdominal aortic aneurysm (AAA) Sister Brain aneurysm Surgical History Brain aneurysm Fracture of right lower leg H/O hemorrhoidectomy H/O: History of angioplasty of peripheral vessel History of angioplasty of peripheral vessel (07/11/19) History of appendectomy History of section History of cholecystectomy History of hemorrhoidectomy History of hysterectomy History of left breast biopsy History of left heart catheterization (01/25/15) History of left-sided carotid endarterectomy History of partial thyroidectomy (11/30/05) History of right-sided carotid endarterectomy S/P coil embolization of cerebral aneurysm S/P hysterectomy S/P insertion of iliac artery stent S/P thyroidectomy Stenosis of left subclavian artery Social History household members: none Smoking Status: Former smoker alcohol intake: never caffeine: Yes Type: coffee and tea ROS ROS Narrative Admission Review of Systems: CONSTITUTIONAL: No weight loss, + weakness or fatigue. No further elevated T/chills. HEENT: Eyes: No visual loss, blurred vision, double vision or yellow sclerae. Ears, Nose, Throat: No hearing loss, sneezing, congestion, runny nose or sore throat. SKIN: No rash or itching, lesions, wounds. CARDIOVASCULAR: No chest pain, chest pressure or chest discomfort, palpitations, edema, orthopnea, syncopal events. RESPIRATORY: + Cough, non-productive. No marked shortness of breath, wheezing, hemoptysis. GASTROINTESTINAL: + anorexia, nausea without emesis, soft stools, dark appearing stools. No abdominal pain, andreas melena, BRBPR. GENITOURINARY: No dysuria, frequency, urgency or retention. NEUROLOGICAL: + Underlying MS and uses walker, chronic debility/lower extremity weakness. No headache, syncope, paralysis, ataxia, numbness or tingling in the extremities, seizure. MUSCULOSKELETAL: + muscle, back pain, joint pain or stiffness. HEMATOLOGIC: No anemia, bleeding or bruising. LYMPHATICS: No enlarged nodes. No history of splenectomy. PSYCHIATRIC: No history of depression or anxiety. ENDOCRINOLOGIC: No reports of sweating. + cold or heat intolerance. No polyuria or polydipsia. ALLERGIES: + Hx of hives. Vital Signs Vital Signs Vital Signs: 11/18/23 11:43 11/18/23 11:47 Temperature 97.7 F L Temperature Source Temporal Pulse Rate 106 H Respiratory Rate 20 H Respiratory Effort Short of Breath Blood Pressure 171/101 H Blood Pressure Mean 124 Pulse Ox 96 Oxygen Delivery Method Room Air Weight Weight: 126 lb 1.671 oz Body Mass Index (BMI) 20.9 Physical Exam Narrative Physical Examination: General: Awake, alert, oriented x 3 and cooperative, laying in the ED bed, fatigued and ill appearing. Skin: Normal color, normal turgor, no icterus, no cyanosis. HEENT: AT/NC, EOMI, PERRLA, dry MM, no carotid bruits or JVD noted. Lungs: Diminished, > bases, dry cough occasiona, no rales, ronchi or wheezing. Heart: Irregular irregular; no gallop, rub audible. Abdomen: Soft, NTTP, ND, normal BS, no HSM. Extremities: No cyanosis, clubbing, or edema. Neurological: Patient awake, alert, oriented as noted, cognitive function intact; pupils equally reactive to light and accommodation, cranial nerves grossly normal, moving all 4 extremities but does have chronic debility/weakness with underlying MS, no markedly severe noted contractures, strength moderately to severely globally decreased secondary to acute presentation compounded by underlying comorbidities. Psychiatric: Affect appears flat, fatigued, no acute evidence of depressive or anxiety feelings. Results Lab / Micro Data 11/18/23 17:07 11/18/23 11:57 Labs: Laboratory Results - last 24 hr 11/18/23 11:57: WBC 5.5, RBC 4.56, Hgb 12.9, Hct 39.1, MCV 85.7, MCH 28.3, MCHC 33.0, RDW Std Deviation 46.5 H, RDW Coeff of David 14.8 H, Plt Count 123 L, MPV 10.3, Immature Gran % (Auto) 0.700, Neut % (Auto) 66.4, Lymph % (Auto) 19.4, [place] % (Auto) 12.9 H, Eos % (Auto) 0.2, Baso % (Auto) 0.4, Absolute Neuts (auto) 3.7, Absolute Lymphs (auto) 1.07, Nucleated RBC % 0, Sodium 140, Potassium 3.5, Chloride 110 H, Carbon Dioxide 22.0, Anion Gap 8, BUN 12, Creatinine 0.99, Estim Creat Clear Calc 48.26, Est GFR (MDRD) Af Amer 72, Est GFR (MDRD) Non-Af 59 L, BUN/Creatinine Ratio 12.2, Glucose 116 H, Calcium 8.0 L, Total Bilirubin 0.40, AST 17, ALT 18, Alkaline Phosphatase 93, Troponin I High Sens 60 H, Total Protein 6.5, Albumin 3.1 L, Globulin 3.4, Albumin/Globulin Ratio 0.9 11/18/23 13:28: Urine Color Yellow, Urine Clarity Clear, Urine pH 6.0, Ur Specific [place] 1.015, Urine Protein Negative, Urine Glucose (UA) Normal, Urine Ketones 5 H, Urine Occult Blood 25 H, Urine Nitrite Negative, Urine Bilirubin Negative, Urine Urobilinogen Normal, Ur Leukocyte Esterase 25 H, Urine RBC 0-5 SEEN, Urine WBC 0-5 SEEN, Ur Squamous Epith Cells 5-10 SEEN, Urine Bacteria 1+, Urine Mucus 0 SEEN Imagaing Radiology Impression Chest X-Ray 11/18/23 11:52 IMPRESSION: Small focus of acute or chronic inflammatory change right upper lobe. Minor bibasilar atelectasis. Electronically Signed: Chago Mcintyre MD at 13:04 EST , Assessment & Plan Assessment/Plan (1) Atrial fibrillation: PLAN: Plan The patient is a 68 y/o F w/ PMHx: Hx Cerebral aneurysm, Chronic pain syndrome, HTN, HLD, Hx TIA, Multiple Sclerosis, Nonobstructive CAD, Psoriatic arthritis, PAD, NS SVT, GERD, Hypothyroidism, Carotid disease, Tobacco use, admitted 11/15/23-11/16/23 with influenza A and acute kidney injury associated to now represents to the [facility] ED on 11/18/23 with history of initially feeling improved due to discharge however the last 24 hours she has been feeling worse with noted dark stools on Plavix with no history of previous history of GI bleed with no abdominal pain with still some mild persistent nausea mostly when she moves quickly but no emesis currently with generalized discomfort and noted soreness around her chest and upper back prompting eventual ED reevaluation. #1. Paroxsymal atrial fibrillation w/ indeterminate cardiac enzyme complicated by recent presentation #2, #3: EKG in ED w/ atrial fibrillation with rate 102 without acute evidence of ischemia. Will admit to PCU, maintain on telemetry, obtain cardiac enzyme serial set, obtain magnesium level, obtain ECHO, obtain TSH level. Will add low-dose beta-elli therapy. Patient is chronically on Plavix and given complaint of recent dark schools will defer any concept of anticoagulation at this time pending dark stool assessment. #2. Atypical dark appearing stools concerning for possible Acute GI Bleed: Admission Hgb 12.9, recent presentation with initial hemoglobin 13.7 decreased down to 12.2 and now back up to 12.9, unconfirmed bleed, stool guaiac has been requested, will maintain on IV fluids, will obtain serial H&H's, given history in the interim we will continue Plavix but defer anticoagulation, maintain on IV PPI, allow clears with n.p.o. status after midnight if positive stool guaiac and again if positive will request GI involvement. #3. Recent Influenza A Viral Syndrome with associated hypotension and GI losses with nausea/emesis/diarrhea: Recent presentation CXR in the ED w/ questionable evolving left lower lobe pneumonia with repeat chest x-ray currently with acute on chronic inflammatory change right upper lobe and minor bibasilar atelectasis. Patient had been out from her symptoms for a decent length of time thus Tamiflu had been deferred. Will continue to judiciously hydrate especially given possible GI bleed component and given evolving chest x-rays may consider repeat in a.m., procalcitonin requested, may initiate antibiotic therapy if suspicion arises for developing pneumonia. #4. Recent Acute kidney injury with Acute Hyponatremia/Hypochloremia of Hypovolemic nature on CKD stage III resolved now: Admission BUN/creatinine 12/0.99, GFR 59, baseline 0.8-1.0, improved and at baseline currently. #5. Chronic pain syndrome: Given CHRISTOPHER resolution we will continue patient home gabapentin, baclofen and narcotic pain regimen however low threshold to hold for any sedation or renal function changes. W #6. Carotid disease: Status post right CEA, continue patient home Plavix regimen, will continue patient hypertensive regimen, noted statin intolerance/allergy. #7. PAD: Status post iliac artery stent previously, continue patient home Plavix regimen, continue home hypertensive regimen, noted statin intolerance/allergy. #8. Hx TIA: Will continue patient home Plavix regimen, continue home hypertensive regimen and noted statin intolerance/allergy. #9. Nonobstructive CAD: Will continue patient home Plavix regimen, continue home hypertensive regimen, noted statin intolerance/allergy. #10. Tobacco Abuse: Encouraged cessation, inpatient consultation per RT, NR if desired. #11. Multiple sclerosis: From current list not on aggressive regimen, only noted to be on gabapentin and also on baclofen, will continue both. Encourage continued outpatient follow-up with neurology. PT/OT/case management consulted for discharge planning. #12. Psoriatic arthritis: Prior was on prednisone, not current taking. Also, as noted on chronic pain regimen which will be continued given resolution of previously CHRISTOPHER. #13. Hypertension: We will continue patient home lisinopril, currently not on any beta-elli therapy but given presentation as noted adding lower dose metoprolol, as needed IV hydralazine. #14. Hyperlipidemia: Noted statin allergy, defer to outpatient. #15. Hypothyroidism: History of previous goiter status post partial thyroidectomy, continue home synthroid regimen, TSH and free T4 requested. #16. History cerebral aneurysm: Status post coil embolization. #17. DVT prophylaxis: SCDs given possible GI bleed component. #18. CODE status: Patient HCPOA and living will are not in place but she notes her sons would be her decisions makers if she was unable. Full Code status. Charges/Coding Visit Charges Inpatient E&M: 60744 Init Hosp L3
--- OUTSIDE RECORDS SUMMARY | 2023-11-18 15:13 | XMS RPT_ITS | CCD ---
Author Name Unknown Address [address] [place] [address] Organization [facility] Care Team Providers Care Information Security Specialist Name Role Phone LYNNE LONGORIA Unavailable UnavailZHANE Mancera Unavailable Unavailable LYNNE LONGORIA Unavailable Unavailable ZHANE DE Unavailable Unavailable ZHANE DE Unavailable Unavailable Jacinda Benton Primary Care Provider [phone] MACEY MAIN Attending Unavailable JACINDA BENTON Primary Care Unavailable JACINDA BENTON Primary Care Unavailable MACEY MAIN Attending Unavailable CRISSY SCHMITZ Attending Unavailable JACINDA BENTON Primary Care Unavailable TYE BARNETT Attending Unavailable Allergies Allergy Classification Reported Allergen(s) Allergy Type Date of Onset Reaction(s) Facility (3 sources) Antihistamines; Translations: [ANTIHISTAMINES] Propensity to adverse reactions to drug (disorder) 04-28-20 04 [facility] Repository (2 sources) clopidogrel; Translations: [CLOPIDOGREL BISULFATE] Drug Allergy 12-18-19 12 [facility] Repository (8 sources) codeine; Translations: [CODEINE] Drug Allergy 04-28-20 04 [facility] Repository (2 sources) fenofibrate; Translations: [FENOFIBRATE MICRONIZED] Drug Allergy 04-27-20 11 [facility] Repository (7 sources) fentaNYL; Translations: [FENTANYL] Drug Allergy 02-19-20 12 [facility] Repository (2 sources) Hmg-Coa Reductase Inhibitors (Statins); Translations: [IDMXJQF-ALE-CNB REDUCTASE INHIBITORS] Propensity to adverse reactions to drug (disorder) 04-27-20 11 [facility] Repository (8 sources) morphine; Translations: [MORPHINE] Drug Allergy 04-28-20 04 Vomiting [facility] Repository (7 sources) predniSONE; Translations: [PREDNISONE] Drug Allergy 12-15-19 09 [facility] Repository (7 sources) salicylic acid; Translations: [SALICYLATES] Drug Allergy 12-04-19 09 [facility] Repository (1 source) Aspirin; Translations: [aspirin] Drug Allergy Ulcer (morphologic abnormality) [facility] (1 source) Colestipol; Translations: [colestipol] Drug Allergy [facility] (1 source) HMG-CoA reductase inhibitor; Translations: [statins] Drug allergy [facility] (5 sources) Amitriptyline Drug Allergy 03-12-20 19 Rash [facility] (5 sources) clopidogrel Drug Allergy 12-18-19 12 [facility] (5 sources) Fenofibrate Drug Allergy 04-27-20 11 [facility] (5 sources) Antihistamines, Diphenhydramine-T ype Drug Intolerance 09-17-20 [facility] Medications Current Medications Medication Drug Class(es) [...] Pressure Non-Invasive 66 1 TYE BARNETT MD [facility] 11-09-2022 14:07-0500 Heart rate 56 /min TYE BARNETT MD [facility] 11-09-2022 14:07-0500 Systolic Blood Pressure Non-Invasive 155 1 TYE BARNETT MD [facility] 11-09-2022 13:42-0500 Diastolic Blood Pressure Non-Invasive 69 1 TYE BARNETT MD [facility] 11-09-2022 13:42-0500 Heart rate 58 /min TYE BARNETT MD [facility] 11-09-2022 13:42-0500 Systolic Blood Pressure Non-Invasive 156 1 TYE BARNETT MD [facility] 11-09-2022 13:14-0500 Diastolic Blood Pressure Non-Invasive 86 1 TYE BARNETT MD [facility] 11-09-2022 13:14-0500 Heart rate 54 /min TYE BARNETT MD [facility] 11-09-2022 13:14-0500 Systolic Blood Pressure Non-Invasive 175 1 TYE BARNETT MD [facility] 11-09-2022 11:25-0500 Reason For Taking VItal Signs TYE BARNETT MD [facility] 11-09-2022 11:25-0500 Respiratory rate 16 /min TYE BARNETT MD [facility] 11-09-2022 11:03-0500 Respiratory rate 16 /min TYE BARNETT MD [facility] 11-09-2022 10:38-0500 Respiratory rate 16 /min TYE BARNETT MD [facility] 11-09-2022 06:29-0500 Blood Pressure Location TYE BARNETT MD [facility] 11-09-2022 06:29-0500 Body height 167.6 cm TYE BARNETT MD [facility] 11-09-2022 06:29-0500 Body temperature 97.7 [degF] TYE BARNETT MD [facility] 11-09-2022 06:29-0500 Body weight 54.8 kg TYE BARNETT MD [facility] 11-09-2022 06:29-0500 Body weight 19.51 kg/m2 TYE BARNETT MD [facility] Encounters Encounter Date Encounter Type Care Provider Facility Start: 10-26-2023 End: 10-26-2023 ambulatory TYE BARNETT Facility:A Start: 10-05-2023 End: 10-06-2023 ambulatory [facility] Start: 10-05-2023 End: 10-05-2023 Office outpatient visit 40 minutes Macey Main MD Work Phone: [facility] Procedures Date Procedure Procedure [...] DTaP/Tdap/Td Vaccines (3 - Td or Tdap) [facility] Start: 07-20-2023 COVID-19 Vaccine ( season) COVID-19 Vaccine ( season) [facility] Start: 07-20-2023 Influenza vaccination Influenza Vacc ine (#1) [facility] Start: 04-19-2021 Lipid panel Lipid Panel [facility] Start: 2014 RSV Immunization age d 60 or older (1 - 1-dose 60+ series) RSV Immunization aged 60 or older (1 - 1-dose 60+ series) [facility] Start: 08-19-2009 Pneumococcal Vaccine : 65+ Years (2 - PCV) Pneumococcal Vaccine: 65+ Years (2 - PCV) [facility] Start: 2004 Zoster Vaccines (1 of 2) Zoster Vacc clifford (1 of 2) [facility] Start: 1994 Screening for malign ant neoplasm of breast Mammogram [facility] Start: 1972 Diabetes mellitus screening Diabetes Screening [facility] Start: 1972 Hepatitis C screening Hepatitis C Sc reening [facility] Start: 1966 Depression Screening Depression Scre ening [facility] Start: 1954 Medicare Advantage A nnual Wellness Visit (AWV) Medicare Advantage Annual Wellness Visit (AWV) [facility] Start: 1954 Screening for malign ant neoplasm of colon [facility] Start: 1954 Screening for osteoporosis Bone Dens ity Scan [facility] Start: 1954 Thyroid stimulating hormone measurement TSH Level [facility] Immunizations Immunization Date Immunization Notes Care Provider Fa cility 09-16-2022 influenza virus vacc ine, unspecified formulation Macey Main MD Work Phone: [facility] Payers Date Payer Category Payer Medicare [id number] 2022 Medicare [employer] [id number] 2022-Present [address] [place] [address] Medicare HMO [id number] 1955 Unknown [id number] Social History Date Type Detail Facility Tobacco smoking status NHIS Smokes tobacc o daily [facility] History of tobacco use Cigarette Smoker S [facility] Start: 04-04-2023 End: 10-05-2023 Alcohol intake Ex-drinker (finding) [facility] Start: 04-04-2023 History of Social function [facility] Start: 04-04-2023 Tobacco use panel [facility] Start: 1955 Sex Assigned At Not on file S [facility] Functional Status Date Assessment Result Facility 11-09-2022 Functional Status Ambulating in room [facility] 11-09-2022 Functional Status [facility] 11-09-2022 Functional Status Maintained [facility] Mental Status Date Assessment Result Facility 11-09-2022 Mental Status Orientation Oriented x [facility] 11-09-2022 Mental Status [facility] 11-09-2022 Mental Status [facility] Clinical Notes 02-09-2021 to 10-05-2023 Macey Main MD - 10/05/2023 3:00 PM ESTTelephone Encounter - Yanely Kwon MA - 10/05/2023 12:58 PM ESTTelephone Encounter - Yanely Kwon MA - 10/05/2023 12:58 PM EST Note Date & Type Note Facility 10-05-2023 History of Present illness Narrative Images from the original note were not included. [facility] [address] [facility] [address] Dept: [phone] Dept Loc: [phone] Patient was seen today via Telehealth by [...] stated that they are currently in the [facility]. If the patient is a minor, [...] TSH VITAMIN B12: No results found for: [id number] No results found for: PHENYTOIN , PHENOBARB , VALPROATE , CBMZ No results found for: LEVETIRACETA , FERRITIN , CRP , DENNIS , ANCA FERRITIN: No results found for: FERRITIN @RESULTINGLABINFO@ No components found for: TOPIRA No results found for: CHRISTIANO , IMMUNOGLOBUL , OLIGOBANDS No results found for: PXF38JV , HEPCAB No results found for: CRP , ANATITER , ANCA ---- @LASTAPPOINTMENTTHISPROV@ ECG 12 lead SINUS BRADYCARDIA PROBABLE LEFT ATRIAL ABNORMALITY No previous ECG available for comparison Electronically Signed On 04-05-2023 7:42:10 EDT by Juvenal Benton Patient Name: ANGÉLICA WALLER : 1955 [facility]#: [id number] Exam Date/Time: 04/04/2023 15:32 Procedure: CT HEAD [...] volume rendered reformats were obtained using a Teamly workstation. Review of the axial source data [...] of the major intracranial arteries at the bois forte of [place]. 6. No hemodynamically significant narrowing [...] arranging for studies. documented in this encounter [facility] 10-05-2023 Telephone encounter Note Patient has been scheduled and records are being faxed over. [facility] 10-05-2023 Miscellaneous Notes Patient has been scheduled and records are being faxed over. Get records from [facility]. OK to add her on at 3 PM as a real or a virtual visit Name of caller: Angélica Contact phone number: [phone] Relationship to Patient: patient Provider: DR Main Practice: [facility] Chief Complaint/Reason for Call: pt was at [facility] yesterday for an MS attack she is asking for IV steroids order infusion. She was started at the hospital and will need additional steroids. Please advise when order placed. Best time of day caller can be reached: AM Patient advised that office/PCP has 24-48 business hours to return their call: Yes documented in this encounter [facility] 10-05-2023 Telephone encounter Note Get records from [facility]. OK to add her on at 3 PM as a real or a virtual visit [facility] 10-05-2023 Telephone encounter Note Name of caller: Angélica Contact phone number: [phone] Relationship to Patient: patient Provider: DR Main Practice: [facility] Chief Complaint/Reason for Call: pt was at [facility] yesterday for an MS attack she is asking for IV steroids order infusion. She was started at the hospital and will need additional steroids. Please advise when order placed. Best time of day caller can be reached: AM Patient advised that office/PCP has 24-48 business hours to return their call: Yes [facility] 06-15-2023 Telephone encounter Note Medication name: baclofen (Lioresal) 20 MG tablet [[id number]] Order Details Dose: 20 mg Route: Oral [...] Original Order: baclofen (Lioresal) 20 MG tablet [[id number]] Providers Ordering and Authorizing Provider: Macey Main MD NEGRA #: [id number] Ordering User: Macey Main MD Pharmacy [id number] [address] NEGRA #: -- Date of last office visit: 04/04/23 Date of next office visit: None Date of last refill: (see medication tab): 10/05/22 Updated/Validated preferred pharmacy: Yes Patient instructed to contact the pharmacy prior to picking up the medication: Yes [facility] 06-15-2023 Miscellaneous Notes Medication name: baclofen (Lioresal) 20 MG tablet [[id number]] Order Details Dose: 20 mg Route: Oral [...] Original Order: baclofen (Lioresal) 20 MG tablet [[id number]] Providers Ordering and Authorizing Provider: Macey Main MD NEGRA #: [id number] Ordering User: Macey Main MD [facility]acy [id number] [place] [id number] [address] NEGRA #: -- Date of last office visit: 04/04/23 Date of next office visit: None Date of last refill: (see medication tab): 10/05/22 Updated/Validated preferred pharmacy: Yes Patient instructed to contact the pharmacy prior to picking up the medication: Yes documented in this encounter [facility] 06-04-2023 Telephone encounter Note Rx renewed [facility] 06-04-2023 Miscellaneous Notes Rx renewed Please [...] the medication: Yes documented in this encounter [facility] 06-04-2023 Telephone encounter Note Please advise. [facility] 06-04-2023 Telephone encounter Note Medication name: [...] the medication: Yes [facility] 11-09-2022 Hospital Discharge instructions Patient Education [...] and water are not available, use hand mechanical assembly. ?Change your dressing as told by your [...] the contrast dye from your body. Take adgi-iaq-hynrpoe and prescription medicines only as told by [...] 05/24/2006 Document Revised: 10/18/2018 Document Reviewed: 10/10/2017 [employer] Patient Education 2020 [employer] 11/09/2022 12:48:21 Moderate Conscious Sedation, Adult, [...] until you are awake and alert. Take vjak-xzb-vurmvow and prescription medicines only as told by [...] 08/26/2014 Document Revised: 10/18/2018 Document Reviewed: 02/24/2017 [employer] Patient Education 2020 [employer]. Follow Up Care 10/27/2022 15:58:56 With:TYE BARNETT MD, [facility], Surgery, Vascular Surgeons Address: [facility] [address] [place] [address] When: Unknown Comments:Follow-up as scheduled [facility] 11-09-2022 Summary of episode note Discharge Instructions Thank you for allowing [facility] to assist you with your healthcare needs. The following is important discharge information regarding your hospital visit. What to do next Follow Up Appointments Follow Up with TYE BARNETT MD, [facility], Surgery, Vascular Surgeons When Why: Follow-up as scheduled Where: [facility] [address] [facility] [address] [place] [address] The Following Activity and Diet [...] and water are not available, use hand mechanical assembly. ? Change your dressing as told by [...] the contrast dye from your body. Take pobv-xpf-rsjjiyr and prescription medicines only as told by [...] 05/24/2006 Document Revised: 10/18/2018 Document Reviewed: 10/10/2017 [employer] Patient Education 2020 [employer] Moderate Conscious [...] until you are awake and alert. Take aaqs-xmi-ecfvbst and prescription medicines only as told by [...] 08/26/2014 Document Revised: 10/18/2018 Document Reviewed: 02/24/2017 [employer] Patient Education 2020 [employer]. Additional Information VACCINATE! IT SAVES LIVES! Members of the community who have not yet received the COVID-19 vaccine and would like to receive it can visit one of [facility] vaccine clinics. There are many vaccine clinic locations within the [facility]. For locations and available times, please visit [email or web address] It is important to note that some COVID mobile vaccine clinics are held outdoors and may be canceled in rainy or stormy conditions. To learn more about pediatric vaccinations (ages 5-11), we invite you to visit the [facility] webpage. [email or web address] To learn more about the COVID-19 vaccine, we invite you to visit the [facility] website for a list of frequently asked questions. [email or web address] quently_[email or web address].pdf [facility] Patient Portal Access Instructions: Stay connected with your healthcare team and access your personal medical information anytime with the [facility] Patient Portal.If you would like a full copy of your medical records, please contact the [facility] Medical Records Department, Sunday through Sunday between 8a.m. and 4:30p.m. Please follow the directions below to access the portal: 1.Access the email account you provided upon registration to the hospital.2.Look for an invitation email from [facility].3.Open the email and access the invitation link: Accept Invitation to [facility]4.Fill in the required duarte to create your account. Sign into www.Silent Edge with your username and password that you [...] you will allow to register on the [facility] Patient Portal for access to your information. You can also access the [facility] Patient Portal on the [employer] jennifer. Simply click on Health Records under Health Data and then click on the [employer] logo. HOW TO SAFELY DISPOSE OF PRESCRIPTION [...] Call your local pharmacy or go to [email or web address] to find one close to you.3.Make use of household items: Use cat litter or old coffee grounds to dispose medications if other options are not available. Mix your drugs with these household products, seal them in an airtight container and throw it into the garbage. Call [facility]: [phone] to be sure your drugs can be [...] aware that I should contact my doctor. 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 [facility] 11-09-2022 Note ORIGINAL Images acquired, not reported on this accession number. [facility] 04-12-2021 Note HNO ID: [id number] Author: TOMMY Flores) Service: ? Author Type: Apron Worker Type: Progress Notes Filed: 04/12/2021 2:14 PM [...] DATE: April 12, 2021 TIME: 2:13 PM [facility] 02-09-2021 Note HNO ID: [id number] Author: Alexander Regalado Service: ? Author Type: [...] wound at high risk for bone exposure. [facility] Evaluation + Plan note No data available for this section [facility] documented in this encounter [facility] Diagnosis Multiple sclerosis (HCC) Multiple sclerosis [facility] Diagnosis Multiple sclerosis (HCC)- Primary Multiple sclerosis Cerebrovascular disease, unspecified Primary hypertension Unspecified essential hypertension documented in this encounter [facility] Health Summary Purpose Family History No [...] DATE CREATED AUTHOR AUTHOR'S ORGANIZ ATION 05/13/2018 [facility] DATE CREATED AUTHOR AUTHOR'S ORGANIZ ATION 12/13/2021 [facility] DATE CREATED AUTHOR AUTHOR'S ORGANIZ ATION 10/10/2023 [facility] DATE CREATED AUTHOR AUTHOR'S ORGANIZ ATION 11/15/2023 [facility] Care Team (unrecognized sect ion and content) Care Team Related Persons Name: BHAVIK OHNG Name: LOLA HONG Reason for Visit (unrecogniz ed section and content) Reason Onset Date Comments Med Refill 06/04/2023 Reason Onset Date Comments Med Refill 06/15/2023 Reason Onset Date Comments Orders 10/05/2023 Reason Comments Hospital Follow-up Care Teams (unrecognized sec tion and content) Information Security Specialist Relationship Specialty Start Date End Date Jacinda Benton [address] [facility] [address] [place] [phone] PCP - General 06/23/20 Information Security Specialist Relationship Specialty Start Date End Date Jacinda Benton [address] [facility] [address] [place] [phone] PCP - General 06/23/20 Information Security Specialist Relationship Specialty Start Date End Date Jacinda Benton [address] [place] [phone] PCP - General 06/23/20 FOR RECORDS PERTAINING [...] BE BASED ON THE PRIMARY CLINICAL RECORDS. [facility] [employer] [facility]. provides no warranty or guarantee of the accuracy or completeness of information in this document.
--- NOTE | 2023-11-18 16:04 | ECHOD_ITS ---
Reason For Study: Afib, Aflutter Procedure This was a 2D Doppler, Color Flow transthoracic echocardiogram. Exam performed portable in patient room. Left Ventricle Normal LV size. Mild concentric left ventricular hypertrophy. The left ventricular ejection fraction is 70 %. Stage 2 diastolic dysfunction. Right Ventricle Normal right ventricle. Atria The left and right atria are normal. Mitral Valve Equivocal mitral valve prolapse, anterior leaflet. Mild (1+) mitral valve insufficiency. Tricuspid Valve Trivial tricuspid valve insufficiency. Right ventricular systolic pressure estimated to be 55 mmHg. Aortic Valve Trisinus/trileaflet aortic valve. Pulmonic Valve The pulmonic valve is not well visualized. Great Vessels Normal sized aortic root. Pericardium/Pleural No pericardial effusion. MMode/2D Measurements & Calculations LVIDd: 3.6 cm IVSd: 1.4 cm Ao root diam: 2.7 cm LVIDs: 2.3 cm LVPWd: 1.1 cm RVDd: 2.6 cm FS: 35.8 % LAV(MOD-bp): 69.5 ml LVAd ap4: 21.5 cm2 SV(MOD-sp4): 31.9 ml LAV(MOD-bp) Indexed: 42.8 ml/m2 LVLd ap4: 7.3 cm LAV(MOD-sp2): 66.0 ml EDV(MOD-sp4): 51.5 ml LAV(MOD-sp4): 64.9 ml EDV(sp4-el): 53.9 ml LVAs ap4: 11.6 cm2 LVLs ap4: 6.0 cm ESV(MOD-sp4): 19.6 ml ESV(sp4-el): 18.8 ml EF(MOD-sp4): 62.0 % EF(sp4-el): 65.0 % SV(sp4-el): 35.1 ml LA A4 area: 23.3 cm2 LA dimension(2D): 3.8 cm RA A4 area: 10.0 cm2 TAPSE: 2.2 cm Time Measurements MV dec time: 0.57 sec Doppler Measurements & Calculations MV E max sony: 132.9 cm/sec Lat Peak E' Sony: 3.9 cm/sec Med Peak E' Sony: 6.2 cm/sec MV A max sony: 135.7 cm/sec E/E' lat: 34.5 E/E' med: 21.3 MV E/A: 0.98 MV V2 max: 175.5 cm/sec Ao V2 max: 147.1 cm/sec MV max P.3 mmHg MV dec slope: 231.7 cm/sec2 Ao max P.7 mmHg MV V2 mean: 107.4 cm/sec Ao V2 mean: 120.9 cm/sec MV mean P.2 mmHg Ao mean P.0 mmHg MV V2 VTI: 76.7 cm Ao V2 VTI: 40.9 cm AV (velocity ratio): 0.82 LV V1 max: 126.6 cm/sec PA V2 max: 95.2 cm/sec PI end-d sony: 161.3 cm/sec LV V1 max P.4 mmHg LV V1 mean P.9 mmHg LV V1 mean: 94.7 cm/sec LV V1 VTI: 33.5 cm TR max sony: 315.2 cm/sec TR max P.7 mmHg ECHO/Echo Complete Interpretation Summary Mild concentric left ventricular hypertrophy. The left ventricular ejection fraction is 70 %. Stage 2 diastolic dysfunction. Mild (1+) mitral valve insufficiency. Right ventricular systolic pressure estimated to be 55 mmHg. Ordering Physician: Sommer Resendiz Referring Physician: Daron Benton Performed By: Noa Peace, MARY, RVT
[2023-11-18 16:24] LABS: Magnesium 1.8 mg/dL (1.6-2.6)
[2023-11-18 17:37] LABS: Hematocrit 34.4 % (37-47); Hemoglobin 11.4 g/dL (12.0-15.0)
[2023-11-18] MEDS: proCHLORPERazine 10 MG/2 ML Vial 5 MG IV (17:39)
[2023-11-18] MEDS: 0.9% Normal Saline (1000mL) 1,000 ML 100 ML IV (17:43)
[2023-11-18] MEDS: Pantoprazole Sodium 40 MG in 0.9% Normal Saline (100mL MB+) 100 ML 330 MG IV (17:45)
[2023-11-18 18:30] LABS: Troponin-I HS 42 pg/mL (3.0-54.0)
[2023-11-18] MEDS: oxyCODONE 5 MG Tablet 10 MG PO (18:53)
[2023-11-18] MEDS: guaiFENesin 1,200 MG Tablet 1200 MG PO (18:54)
[2023-11-18] MEDS: Metoprolol Tartrate 25 MG Tablet 12.5 MG PO (18:59)
[2023-11-18] MEDS: hydrALAZINE 20 MG/ML Vial 10 MG IV (20:05)
[2023-11-18] MEDS: 0.9% Saline Lock 10 ML Syringe IV (20:06)
[2023-11-18] MEDS: Baclofen 10 MG Tablet 20 MG PO (20:11)
[2023-11-18] MEDS: Gabapentin 800 MG Tablet PO (20:14)
[2023-11-18 21:23] LABS: Hemoglobin 11.1 g/dL (12.0-15.0)
[2023-11-19] VITALS (9 sets, daily range): BP systolic 154–184; BP diastolic 80–97; PULSE 62–85; RESP 15–20; TEMP 36.6–37.4; O2SAT 93–98; BMI 20.2
[2023-11-19] MEDS: Ondansetron 4 MG/2 ML Vial IV ×2 (00:16→16:24)
[2023-11-19] MEDS: 0.9% Saline Lock 10 ML Syringe IV ×3 (00:17→21:34)
[2023-11-19 01:26] LABS: Hematocrit 31.1 % (37-47); Hemoglobin 10.3 g/dL (12.0-15.0)
[2023-11-19] MEDS: oxyCODONE 5 MG Tablet 10 MG PO ×4 (03:23→22:55)
--- NOTE | 2023-11-19 05:15 | RAD_ITS ---
HISTORY: Dyspnea, cough. TECHNIQUE: XR Chest 1 View. COMPARISON: Prior day. FINDINGS: LINES/TUBES: None. CARDIOMEDIASTINAL BORDERS: Stable. LUNGS: Focal opacity in the right midlung laterally again seen. Mild bibasilar atelectasis. PLEURA: No pleural effusion or pneumothorax. RAD/Chest 1 View (Portable) IMPRESSION: No significant interval change in focal opacity in the right mid chest, which may represent focal pneumonia or pulmonary nodule. Recommend follow-up to resolution. Electronically Signed: Angle Reynoso MD at 14:56 EST ,
[2023-11-19] MEDS: Gabapentin 800 MG Tablet PO ×3 (05:57→21:34)
[2023-11-19] MEDS: Baclofen 10 MG Tablet 20 MG PO ×3 (05:57→21:34)
[2023-11-19] MEDS: Levothyroxine 50 MCG Tablet PO (05:58)
[2023-11-19 06:44] LABS: Absolute Lymphocyte Count 0.73 X10^3/uL (0.83-4.51); Absolute Neutrophil Count 2.9 X10^3/uL (2.0-7.7); Basophil# 0.02 X10^3/uL; Basophil% 0.5 % (0-1); Eosinophil# 0.01 X10^3/uL; Eosinophils% 0.2 % (0-5); Hematocrit 32.4 % (37-47); Hemoglobin 10.8 g/dL (12.0-15.0); Lymphocyte # 0.73 X10^3/ul (0.83-4.51); Lymphocyte % 17.1 % (19-41); Mean Corp Hgb Conc 33.3 g/dL (32-36); Mean Corpuscular Hgb 29.3 pg (27.0-32.0); Mean Corpuscular Volume 87.8 fL (81-99); Mean Platelet Vol. 10.5 fl (6.2-12.0); Monocyte# 0.57 X10^3/uL; Monocyte% 13.3 % (0-10); NRBC Flagged by Analyzer 0 % (0-5); Neutrophil # 2.89 X10^3/uL (2.7-7.7); Neutrophil % 67.7 % (47-70); Platelet Count 113 K/mm3 (150-450); RBC Distribution Width CV 15.2 % (11.6-14.6); Red Blood Count 3.69 M/mm3 (4.2-5.4); White Blood Count 4.3 K/mm3 (4.4-11.0)
[2023-11-19 07:18] LABS: ALB/GLOB Ratio 0.9 RATIO (0.9-2.4); AST(SGOT) 17 U/L (15-37); Alanine Aminotransfer ALT/SGPT 16 U/L (13-56); Albumin, Serum 2.6 g/dL (3.2-5.0); Alkaline Phosphatase 79 U/L (45-117); Anion Gap 6 (5-15); BUN 9 mg/dL (7-18); BUN/Creat Ratio 10.5 RATIO (10-20); Calcium,Total 7.8 mg/dL (8.5-10.1); Chloride 111 mmol/L (98-107); Cholesterol 116 mg/dL (200); Creatinine, Serum 0.85 mg/dL (0.55-1.02); EST Glomerular Filtration Rate 70 mL/min (>60); Est Glom Filt Rate - Afr Amer 85 mL/min (>60); Estimated Creatinine Clearance 54.12 ml/min; Globulin 2.9 g/dL (2.2-4.2); Glucose 83 mg/dL (74-106); High Density Lipoprotein 30 mg/dL; Potassium 3.6 mmol/L (3.5-5.1); Protein, Total 5.5 g/dL (6.4-8.2); Sodium Level 140 mmol/L (136-145); T4 Free Direct 1.66 ng/dL (0.76-1.46); Thyroid Stim Hormone (TSH) 1.42 uIU/mL (0.358-3.74); Triglycerides 116 mg/dL; Very Low Density Lipoprotein 23 mg/dL (5-40)
[2023-11-19] MEDS: Pantoprazole Sodium 40 MG in 0.9% Normal Saline (100mL MB+) 100 ML 330 MG IV ×2 (08:36→21:34)
[2023-11-19] MEDS: BENZOCAINE/MENTHOL 1 LOZENGE MUCOUS MEM (08:36)
[2023-11-19] MEDS: Metoprolol Tartrate 25 MG Tablet 12.5 MG PO ×2 (08:37→21:33)
[2023-11-19] MEDS: Cholecalciferol (Vit D3) 125 MCG CAPSULE (5,000 UNITS) PO (08:37)
[2023-11-19] MEDS: Lisinopril 5 MG Tablet PO (08:39)
[2023-11-19] MEDS: Clopidogrel Bisulfate 75 MG Tablet PO (08:40)
[2023-11-19] MEDS: guaiFENesin 1,200 MG Tablet 1200 MG PO ×2 (08:40→21:33)
[2023-11-19] MEDS: Menthol/Lanolin/Calamine/Znox 113 GM Tube 1 APPLIC TOPICAL (08:41)
[2023-11-19] MEDS: Albuterol 2.5 MG/3 ML VIAL.NEB. INHALATION (08:43)
--- NOTE | 2023-11-19 10:46 | PCM.PN.HOSP ---
Subjective Subjective Doing well, no issues overnight. She is not requiring any supplemental oxygen she just feels weak and worn out Objective Data Objective Data Vital Signs: Vital Signs Temp Pulse Resp BP Pulse Ox O2 Del Method 97.8 F 78 20 H 154/91 H 98 Room Air 11/19/23 08:21 11/19/23 08:43 11/19/23 08:43 11/19/23 08:37 11/19/23 08:43 11/19/23 08:46 Oxygen Delivery Method Room Air Weight: 121 lb 4.068 oz Body Mass Index (BMI) 20.2 Intake & Output: Intake and Output for Last 24 Hours 11/18/23 11/19/23 11/20/23 03:59 03:59 03:59 Intake Total 1390 / 1390 1170 / 1170 Balance 1390 / 1390 1170 / 1170 Lab / Micro Data 11/19/23 05:32 11/19/23 05:32 Labs: Laboratory Results - last 24 hr 11/18/23 11:57: WBC 5.5, RBC 4.56, Hgb 12.9, Hct 39.1, MCV 85.7, MCH 28.3, MCHC 33.0, RDW Std Deviation 46.5 H, RDW Coeff of David 14.8 H, Plt Count 123 L, MPV 10.3, Immature Gran % (Auto) 0.700, Neut % (Auto) 66.4, Lymph % (Auto) 19.4, [place] % (Auto) 12.9 H, Eos % (Auto) 0.2, Baso % (Auto) 0.4, Absolute Neuts (auto) 3.7, Absolute Lymphs (auto) 1.07, Nucleated RBC % 0, Sodium 140, Potassium 3.5, Chloride 110 H, Carbon Dioxide 22.0, Anion Gap 8, BUN 12, Creatinine 0.99, Estim Creat Clear Calc 48.26, Est GFR (MDRD) Af Amer 72, Est GFR (MDRD) Non-Af 59 L, BUN/Creatinine Ratio 12.2, Glucose 116 H, Calcium 8.0 L, Magnesium 1.8, Total Bilirubin 0.40, AST 17, ALT 18, Alkaline Phosphatase 93, Troponin I High Sens 60 H, Total Protein 6.5, Albumin 3.1 L, Globulin 3.4, Albumin/Globulin Ratio 0.9 11/18/23 13:28: Urine Color Yellow, Urine Clarity Clear, Urine pH 6.0, Ur Specific [place] 1.015, Urine Protein Negative, Urine Glucose (UA) Normal, Urine Ketones 5 H, Urine Occult Blood 25 H, Urine Nitrite Negative, Urine Bilirubin Negative, Urine Urobilinogen Normal, Ur Leukocyte Esterase 25 H, Urine RBC 0-5 SEEN, Urine WBC 0-5 SEEN, Ur Squamous Epith Cells 5-10 SEEN, Urine Bacteria 1+, Urine Mucus 0 SEEN 11/18/23 17:07: Hgb 11.4 L, Hct 34.4 L 11/18/23 18:00: Troponin I High Sens 42 11/18/23 21:10: Hgb 11.1 L, Hct 33.0 L 11/19/23 01:06: Hgb 10.3 L, Hct 31.1 L 11/19/23 05:32: WBC 4.3 L, RBC 3.69 L, Hgb 10.8 L, Hct 32.4 L, MCV 87.8, MCH 29.3, MCHC 33.3, RDW Std Deviation 49.0 H, RDW Coeff of David 15.2 H, Plt Count 113 L, MPV 10.5, Immature Gran % (Auto) 1.200 H, Neut % (Auto) 67.7, Lymph % (Auto) 17.1 L, [place] % (Auto) 13.3 H, Eos % (Auto) 0.2, Baso % (Auto) 0.5, Absolute Neuts (auto) 2.9, Absolute Lymphs (auto) 0.73 L, Nucleated RBC % 0, Sodium 140, Potassium 3.6, Chloride 111 H, Carbon Dioxide 23.0, Anion Gap 6, BUN 9, Creatinine 0.85, Estim Creat Clear Calc 54.12, Est GFR (MDRD) Af Amer 85, Est GFR (MDRD) Non-Af 70, BUN/Creatinine Ratio 10.5, Glucose 83, Calcium 7.8 L, Total Bilirubin 0.50, AST 17, ALT 16, Alkaline Phosphatase 79, Total Protein 5.5 L, Albumin 2.6 L, Globulin 2.9, Albumin/Globulin Ratio 0.9, Triglycerides 116, Cholesterol 116, LDL Cholesterol 63, VLDL Cholesterol 23, HDL Cholesterol 30 L, TSH 1.42, Free T4 1.66 H Micro: Microbiology 11/18/23 15:24 Stool Stool Occult Blood (CARMEN) - Final Radiography Diagnostic Testing: Radiology Impression Chest X-Ray 11/18/23 11:52 IMPRESSION: Small focus of acute or chronic inflammatory change right upper lobe. Minor bibasilar atelectasis. Electronically Signed: Chago Mcintyre MD at 13:04 EST Reading Location ID and State: [address] [place] [address] Tel , Service support , Physical Exam Narrative General: Alert, Oriented x3, Cooperative, No apparent distress HEENT: Atraumatic, PERRLA, EOMI, Normocephalic Oral: Moist Mucosa Neck: Supple, No JVD Lungs: Diminished, Normal air movement, No rhonchi, No wheeze, No rales Cardiovascular: Regular rate, Regular Rhythm, Normal S1, Normal S2, No murmurs Abdomen: Soft, Non Tender, Non-Distended, No Hepato-splenomegaly Extremities: No edema, Capillary Refill Less than 3 Seconds Skin: No rashes, No breakdown Musculoskeletal: No Tenderness to Palpation of Joints or Extremities Neurological: Cranial nerves II-XII grossly intact, Motor Exam 5/5 strength throughout, Sensory exam intact to light touch and pain Psych/Mental Status: Normal Affect, Appropriate Assessment & Plan Assessment/Plan (1) Atrial fibrillation: PLAN: Plan 1. New onset paroxysmal A-fib/history of CVA/PAD with iliac stent/history of TIA/nonobstructive CAD/HTN/HLD ? Continue with metoprolol but she was having dark stools so we will hold off on any anticoagulation at this time, if her hemoglobin remained stable can continue with PPI and place her on anticoagulation ? It does appear that her A-fib has resolved ? Can resume her home blood pressure medications ? Given her history of TIA can resume her Plavix, stool occult was negative and hemoglobin is stable ? Echocardiogram is pending 2. Dark stools ? Fecal occult is negative for blood ? Will continue to monitor her hemoglobin but will allow her to eat 3. Recent influenza A ? This is likely the main source of her not feeling well ? She is about 8 days out from symptom onset can take out of precautions 4. MS/chronic pain ? Not on any aggressive medications ? Can resume her home chronic pain medications 5. Hypothyroidism ? Stable ? TSH is 1.42 ? Continue with her home Synthroid 6. Psoriatic arthritis ? Continue medications for her chronic pain she is not on any disease modifying agents DVT: SCDs Charges/Coding Visit Charges Inpatient E&M: 14936 Subs Hosp L2
[2023-11-19] MEDS: proCHLORPERazine 10 MG/2 ML Vial 5 MG IV (12:10)
[2023-11-19] MEDS: hydrALAZINE 20 MG/ML Vial 10 MG IV (16:33)
[2023-11-20] VITALS (9 sets, daily range): BP systolic 129–164; BP diastolic 69–99; PULSE 52–74; RESP 14–18; TEMP 36.6–37.9; O2SAT 94–98; BMI 20.3
[2023-11-20] MEDS: hydrALAZINE 20 MG/ML Vial 10 MG IV (03:45)
[2023-11-20] MEDS: 0.9% Saline Lock 10 ML Syringe IV ×3 (03:45→13:55)
[2023-11-20] MEDS: Ondansetron 4 MG/2 ML Vial IV ×2 (04:46→13:55)
[2023-11-20] MEDS: Gabapentin 800 MG Tablet PO ×3 (05:05→21:32)
[2023-11-20] MEDS: Levothyroxine 50 MCG Tablet PO (05:05)
[2023-11-20] MEDS: Baclofen 10 MG Tablet 20 MG PO ×3 (05:05→21:32)
[2023-11-20] MEDS: oxyCODONE 5 MG Tablet 10 MG PO ×4 (05:05→23:31)
[2023-11-20 07:11] LABS: Absolute Lymphocyte Count 0.48 X10^3/uL (0.83-4.51); Absolute Neutrophil Count 6.6 X10^3/uL (2.0-7.7); Basophil# 0.03 X10^3/uL; Basophil% 0.4 % (0-1); Eosinophil# 0.01 X10^3/uL; Eosinophils% 0.1 % (0-5); Hematocrit 33.9 % (37-47); Hemoglobin 11.1 g/dL (12.0-15.0); Lymphocyte # 0.48 X10^3/ul (0.83-4.51); Lymphocyte % 5.9 % (19-41); Mean Corp Hgb Conc 32.7 g/dL (32-36); Mean Corpuscular Hgb 28.5 pg (27.0-32.0); Mean Corpuscular Volume 87.1 fL (81-99); Mean Platelet Vol. 9.9 fl (6.2-12.0); Monocyte# 0.79 X10^3/uL; Monocyte% 9.8 % (0-10); NRBC Flagged by Analyzer 0 % (0-5); Neutrophil # 6.61 X10^3/uL (2.7-7.7); Neutrophil % 81.9 % (47-70); POSITIVE DIFFERENTIAL YES; Platelet Count 131 K/mm3 (150-450); RBC Distribution Width CV 15.1 % (11.6-14.6); RBC Distribution Width SD 48.3 fl (35.1-43.9); Red Blood Count 3.89 M/mm3 (4.2-5.4); White Blood Count 8.1 K/mm3 (4.4-11.0)
[2023-11-20 07:12] LABS: Differential Indicated SCAN CRITERIA MET
[2023-11-20 07:33] LABS: Anion Gap 10 (5-15); BUN 10 mg/dL (7-18); BUN/Creat Ratio 11.5 RATIO (10-20); Chloride 106 mmol/L (98-107); Creatinine, Serum 0.87 mg/dL (0.55-1.02); EST Glomerular Filtration Rate 69 mL/min (>60); Est Glom Filt Rate - Afr Amer 83 mL/min (>60); Estimated Creatinine Clearance 53.47 ml/min; Glucose 94 mg/dL (74-106); Potassium 3.4 mmol/L (3.5-5.1); Sodium Level 137 mmol/L (136-145)
[2023-11-20 07:38] LABS: Troponin-I HS 26 pg/mL (3.0-54.0)
--- NOTE | 2023-11-20 08:42 | CASEMGMT ---
YAW received a phone call from Tena Santoro with [facility]. Patient has aide services 10 hours per week and a medical alert button. Tena asked that YAW update her on d/c plan. Lizbeth WINN
[2023-11-20] MEDS: guaiFENesin 1,200 MG Tablet 1200 MG PO ×2 (09:18→21:32)
[2023-11-20] MEDS: Lisinopril 5 MG Tablet PO (09:18)
[2023-11-20] MEDS: Clopidogrel Bisulfate 75 MG Tablet PO (09:18)
[2023-11-20] MEDS: Metoprolol Tartrate 25 MG Tablet 12.5 MG PO (09:18)
[2023-11-20] MEDS: Cholecalciferol (Vit D3) 125 MCG CAPSULE (5,000 UNITS) PO (09:18)
[2023-11-20] MEDS: Pantoprazole Sodium 40 MG Tablet PO ×2 (09:22→21:32)
--- NOTE | 2023-11-20 10:21 | PN.HOSP_ITS ---
Subjective Subjective Still feels fatigued and unwell secondary to her flu. She does admit to taking Pepto-Bismol which explains why her stool was black and her hemoglobin stable Objective Data Objective Data Vital Signs: Vital Signs Temp Pulse Resp BP Pulse Ox O2 Del Method 98.9 F 74 16 140/69 H 94 Room Air 11/20/23 09:10 11/20/23 09:18 11/20/23 09:10 11/20/23 09:18 11/20/23 09:10 11/20/23 09:10 Oxygen Delivery Method Room Air Weight: 122 lb 5.705 oz Body Mass Index (BMI) 20.3 Intake & Output: Intake and Output for Last 24 Hours 11/19/23 11/20/23 11/21/23 03:59 03:59 03:59 Intake Total 1390 / 1390 2210 / 2210 Balance 1390 / 1390 2210 / 2210 Lab / Micro Data 11/20/23 06:30 11/20/23 06:30 Labs: Laboratory Results - last 24 hr 11/20/23 06:30: WBC 8.1, RBC 3.89 L, Hgb 11.1 L, Hct 33.9 L, MCV 87.1, MCH 28.5, MCHC 32.7, RDW Std Deviation 48.3 H, RDW Coeff of David 15.1 H, Plt Count 131 L, MPV 9.9, Immature Gran % (Auto) 1.900 H, Neut % (Auto) 81.9 H, Lymph % (Auto) 5.9 L, [place] % (Auto) 9.8, Eos % (Auto) 0.1, Baso % (Auto) 0.4, Absolute Neuts (auto) 6.6, Absolute Lymphs (auto) 0.48 L, Nucleated RBC % 0, Differential Comment COMMENT, Sodium 137, Potassium 3.4 L, Chloride 106, Carbon Dioxide 21.0, Anion Gap 10, BUN 10, Creatinine 0.87, Estim Creat Clear Calc 53.47, Est GFR (MDRD) Af Amer 83, Est GFR (MDRD) Non-Af 69, BUN/Creatinine Ratio 11.5, Glucose 94, Calcium 8.0 L, Troponin I High Sens 26 Micro: Microbiology 11/18/23 15:24 Stool Stool Occult Blood (CARMEN) - Final Radiography Diagnostic Testing: Radiology Impression Echocardiogram 11/18/23 16:04 Interpretation Summary Mild concentric left ventricular hypertrophy. The left ventricular ejection fraction is 70 %. Stage 2 diastolic dysfunction. Mild (1+) mitral valve insufficiency. Right ventricular systolic pressure estimated to be 55 mmHg. Ordering Physician: Sommer Resendiz Referring Physician: Daron Benton Performed By: Noa Peace, MARY, RVT Chest X-Ray 11/19/23 05:15 IMPRESSION: No significant interval change in focal opacity in the right mid chest, which may represent focal pneumonia or pulmonary nodule. Recommend follow-up to resolution. Electronically Signed: Angle Reynoso MD at 14:56 EST , Physical Exam Narrative General: Alert, Oriented x3, Cooperative, No apparent distress HEENT: Atraumatic, PERRLA, EOMI, Normocephalic Oral: Moist Mucosa Neck: Supple, No JVD Lungs: Diminished, Normal air movement, No rhonchi, No wheeze, No rales Cardiovascular: Regular rate, Regular Rhythm, Normal S1, Normal S2, No murmurs Abdomen: Soft, Non Tender, Non-Distended, No Hepato-splenomegaly Extremities: No edema, Capillary Refill Less than 3 Seconds Skin: No rashes, No breakdown Musculoskeletal: No Tenderness to Palpation of Joints or Extremities Neurological: Cranial nerves II-XII grossly intact, Motor Exam 5/5 strength throughout, Sensory exam intact to light touch and pain Psych/Mental Status: Normal Affect, Appropriate Assessment & Plan Assessment/Plan (1) Atrial fibrillation: PLAN: Plan 1. New onset paroxysmal A-fib/history of CVA/PAD with iliac stent/history of TIA/nonobstructive CAD/HTN/HLD ? Continue with metoprolol but she was having dark stools so we will hold off on any anticoagulation at this time, if her hemoglobin remained stable can continue with PPI and place her on anticoagulation ? It does appear that her A-fib has resolved ? Can resume her home blood pressure medications ? Given her history of TIA can resume her Plavix, stool occult was negative and hemoglobin is stable ? Echo with an EF of 70% and stage II diastolic dysfunction with an RVSP of 55 mmHg ? Continue with Eliquis ? If hemoglobin stays stable we will plan for discharge 2. Dark stools ? Fecal occult is negative for blood, this is due to Pepto-Bismol due to her flu ? Will continue to monitor her hemoglobin but will allow her to eat 3. Recent influenza A ? This is likely the main source of her not feeling well ? She is about 8 days out from symptom onset can take out of precautions 4. MS/chronic pain ? Not on any aggressive medications ? Can resume her home chronic pain medications 5. Hypothyroidism ? Stable ? TSH is 1.42 ? Continue with her home Synthroid 6. Psoriatic arthritis ? Continue medications for her chronic pain she is not on any disease modifying agents DVT: SCDs Charges/Coding Visit Charges Inpatient E&M: 45821 Subs Hosp L2
[2023-11-20] MEDS: APIXABAN 5 MG TABLET PO ×2 (11:16→21:32)
[2023-11-20] MEDS: Acetaminophen 325 MG Tablet 650 MG PO (13:47)
--- NOTE | 2023-11-20 16:31 | CASEMGMT ---
EVERT CHAVARRIA chart review: Patient was admitted 11/15-11/16/23 for influenza A and CHRISTOPHER. See EVERT CHAVARRIA assessment from 11/16/23. Patient was discharged to home with resumption of [employer] services. Patient returned to [facility] 11/18/23 for increased weakness and was admitted for Paf new onset. EVERT CHAVARRIA in to dicuss readmission and needs at discharge. Patient states she has history of MS and the influenza A exacerbated her symptoms. Patient states she was taking medications as prescribed. Patient returned prior to PCP appt. Patient denies needs at discharge, will monitor progress. Patient to discharge home with resumption of aide services, will monitor for skilled HHC.
[2023-11-21 03:30] VITALS: BP 113/52; PULSE 55; RESP 18; TEMP 37.1; O2SAT 95
[2023-11-21 05:32] VITALS: BP 121/74
[2023-11-21] MEDS: oxyCODONE 5 MG Tablet 10 MG PO ×2 (05:33→12:22)
[2023-11-21] MEDS: Baclofen 10 MG Tablet 20 MG PO (05:33)
[2023-11-21] MEDS: Levothyroxine 50 MCG Tablet PO (05:33)
[2023-11-21] MEDS: Gabapentin 800 MG Tablet PO (05:33)
[2023-11-21 05:35] VITALS: BMI 20.4
[2023-11-21 05:53] LABS: Absolute Lymphocyte Count 0.67 X10^3/uL (0.83-4.51); Absolute Neutrophil Count 2.9 X10^3/uL (2.0-7.7); Basophil# 0.03 X10^3/uL; Basophil% 0.6 % (0-1); Eosinophil# 0.04 X10^3/uL; Eosinophils% 0.9 % (0-5); Hematocrit 30.8 % (37-47); Hemoglobin 10.2 g/dL (12.0-15.0); Lymphocyte # 0.67 X10^3/ul (0.83-4.51); Lymphocyte % 14.3 % (19-41); Mean Corp Hgb Conc 33.1 g/dL (32-36); Mean Corpuscular Hgb 28.8 pg (27.0-32.0); Mean Platelet Vol. 9.7 fl (6.2-12.0); Monocyte# 0.88 X10^3/uL; Monocyte% 18.8 % (0-10); NRBC Flagged by Analyzer 0 % (0-5); Platelet Count 141 K/mm3 (150-450); RBC Distribution Width SD 48.1 fl (35.1-43.9); Red Blood Count 3.54 M/mm3 (4.2-5.4); White Blood Count 4.7 K/mm3 (4.4-11.0)
[2023-11-21 07:44] VITALS: O2SAT 96
[2023-11-21 08:14] VITALS: BP 127/76; PULSE 47; RESP 15; TEMP 36.8; O2SAT 95
[2023-11-21 08:17] VITALS: PULSE 47
[2023-11-21] MEDS: Clopidogrel Bisulfate 75 MG Tablet PO (08:17)
[2023-11-21] MEDS: Pantoprazole Sodium 40 MG Tablet PO (08:18)
[2023-11-21] MEDS: Cholecalciferol (Vit D3) 125 MCG CAPSULE (5,000 UNITS) PO (08:18)
[2023-11-21] MEDS: Lisinopril 5 MG Tablet PO (08:18)
[2023-11-21] MEDS: guaiFENesin 1,200 MG Tablet 1200 MG PO (08:18)
[2023-11-21] MEDS: APIXABAN 5 MG TABLET PO (08:19)
--- NOTE | 2023-11-21 08:55 | DCINST_ITS ---
Discharge Instructions Diet Discharge Diet: Low fat / Low cholesterol Activity Discharge Activity: Return to Normal Activity Dressing / Incision Call your doctor if you observe: Fever of 101 or Higher, Shortness of breath, Dizziness, Fainting spells, Swelling in the ankles, Chest pain and Increased palpitations (irregular heartbeat) Follow Up Care Test Results: Test results from this visit will be discussed in further detail at your follow- up appointment, if applicable. Discharge Plan Admission Admit Date/Time: 11/18/23 14:48 Attending Provider: Sachin Murillo Primary Care Provider: Daron Benton Consulting Providers: Sommer Resendiz Instructions Additional Instructions / Restrictions: Follow-up with your PCP in 3 to 5 days to monitor your hemoglobin. Your dark stools were likely due to Pepto-Bismol and your hemoglobin has remained stable here but you were started on anticoagulation for your atrial fibrillation in order to decrease risk of stroke which can worsen any bleeding. Discharge Orders/Prescriptions Prescriptions: New metoprolol tartrate 25 mg Tablet 12.5 mg PO BID 30 Days Qty: 30 0RF Eliquis 5 mg Tablet 5 mg PO BID 30 Days Qty: 60 0RF Continued gabapentin 800 mg tablet 800 mg PO TID baclofen 20 mg tablet 20 mg PO Q8H levothyroxine 50 mcg tablet 50 mcg PO DAILY Patient Comments: take 1 tablet by mouth once daily oxycodone 10 mg tablet 10 mg PO Q6H PRN Patient Comments: take 1 tab q6 PRN for pain lisinopril 5 mg tablet 5 mg PO DAILY Qty: 30 11RF Hold Instructions: Hold for 7 days. cholecalciferol (vitamin D3) 5,000 UNIT tablet 5,000 unit PO DAILY Patient Comments: supplement dextromethorphan-guaifenesin [Mucinex DM] 60-1,200 mg tablet extended release 12 hr 1 tab PO Q12H 7 Days Qty: 14 0RF clopidogrel 75 mg tablet 75 mg PO DAILY Qty: 90 3RF Referrals / Follow Up: Daron Benton MD [Primary Care Provider] - 11/27/23 11:00 am Betsey Lindquist PA [Med Staff - Adv Practice Prof] - Within 1 Month Disposition Disposition (needs filled in before D/C Order can be placed): Home, Self Care
--- NOTE | 2023-11-21 10:45 | CASEMGMT ---
Patient has order for discharge. Patient discharging on Eliquis. EVERT CHAVARRIA called [facility] [employer] to verify copay, $0 copay. EVERT CHAVARRIA in to discuss discharge needs at discharge. RN DEON updated patient regarding no cost for Eliquis. Patient stated she will have her aide pick medications up tomorrow. RN DEON educated patient on importance of getting medications today. Patient states she does not have a ride to [facility] and only has money for a taxi to home. EVERT CHAVARRIA asked if patient would like to get prescriptions transferred to [facility] [employer], patient agreeable. Patient denied further needs and is SBA in room. Patient had no further questions or concerns at this time. EVERT CHAVARRIA called [facility] [employer] and requested meds be transferred from [facility] [employer].
--- NOTE | 2023-11-21 10:57 | DS.PCM_ITS ---
Providers Date of Admission: 11/18/23 Primary Care Physician: Dr. Daron Benton MD Reason For Visit: PAF NEW ONSET, ? GI BLEED, RECENT INFLUENZA A Diagnosis Discharge Diagnosis (1) Atrial fibrillation: Status: Acute Code(s): I48.91 - Unspecified atrial fibrillation Medications at Discharge Home Medications cholecalciferol (vitamin D3) 125 mcg (5,000 unit) tablet 5,000 unit PO DAILY supplement 12/16/13 gabapentin 800 mg tablet 800 mg PO TID MS 07/16/18 baclofen 20 mg tablet 20 mg PO Q8H MS 08/11/21 levothyroxine 50 mcg tablet 50 mcg PO DAILY thyroid 08/11/21 oxycodone 10 mg tablet 10 mg PO Q6H PRN pain 05/24/23 clopidogrel 75 mg tablet 75 mg PO DAILY dose increased, pt is OUT of med, please fill #90 TABLETS 06/01/23 lisinopril 5 mg tablet 5 mg PO DAILY blood pressure #30 tabs 11/02/23 dextromethorphan-guaifenesin ER 60 mg-1,200 mg tab,extend release,12hr (Mucinex DM) 1 tab PO Q12H cough/congest 7 days #14 tabs 11/16/23 apixaban 5 mg tablet (Eliquis) 5 mg PO BID 30 days #60 tabs 11/21/23 metoprolol tartrate 25 mg tablet 12.5 mg (1/2 x 25 mg) PO BID 30 days #30 tabs 11/21/23 Hospital Course Operations None Procedures 2-D Echocardiogram Summary of Care Provided Minutes Spent on Discharge: 35 Hospital Course: Per HPI: The patient is a 68 y/o F w/ PMHx: Hx Cerebral aneurysm, Chronic pain syndrome, HTN, HLD, Hx TIA, Multiple Sclerosis, Nonobstructive CAD, Psoriatic arthritis, PAD, NS SVT, GERD, Hypothyroidism, Carotid disease, Tobacco use, admitted 11/15/23-11/16/23 with influenza A and acute kidney injury associated to now represents to the [facility] ED on 11/18/23 with history of initially feeling i mproved due to discharge however the last 24 hours she has been feeling worse with noted dark stools on Plavix with no history of previous history of GI bleed with no abdominal pain with still some mild persistent nausea mostly when she moves quickly but no emesis currently with generalized discomfort and noted soreness around her chest and upper back prompting eventual ED reevaluation. Workup in the ED included T97.7, heart rate 106, BP 171/101, respiratory rate 20, 96% on room air, CBC with WBC 5.5, hemoglobin 12.9, platelet 123 without marked shift, CMP with glucose 116, BUN/creatinine 12/0.99, GFR 59, hepatic profile not marked appearing, troponin 60 with recent presentation with no trop onin obtained of note and last noted 10/05/2023 troponin 8, urinalysis with specific remedy 1.015, ketone 5, occult blood 25, negative nitrate, leukocyte esterase 25 with no marked urine WBCs with 5-10 squamous epithelial cells this poor sample with 1+ bacteria noted, chest x-ray with a small focus of acute or chronic inflammatory change right upper lobe and minor bibasilar atelectasis, EKG with new onset atrial fibrillation with rate 102 with no acute evidence of ischemia. In the ED patient administered 1 L normal saline and Zofran 4 mg IV x 1. Hospital course: 1. New onset paroxysmal A-fib/history of CVA/PAD with iliac stents/history of TIA/nonobstructive CAD/HTN/HLD?68-year-old female who was recently admitted for influenza A presented back to the hospital with palpitations and A-fib. She was started on low-dose metoprolol twice daily and her symptoms resolved. There is also some concern for possible GI bleed because she was seeing black stools however fecal occult was negative for blood and she admits to taking Pepto- Bismol. Hemoglobin is remained stable anywhere between 10 and 11.5 therefore she was started on Eliquis at 5 mg p.o. twice daily given her stroke risk factors in the setting of A-fib. I discussed with her the plan for possible discharge today she expressed understanding of the risk and benefits of going home and would like to go home today. Echo during her stay demonstrated EF of 70% with stage II diastolic dysfunction with an RVSP of 55 mmHg. She was set to have an echo next week which is no longer needs to be done and I do recommend that she follow-up with cardiology and her PCP in the next 1 to 2 weeks. She will need outpatient follow-up with a CBC to monitor her hemoglobin secondary to her anticoagulation. 2. Multiple sclerosis, chronic pain, hypothyroidism, psoriatic arthritis are all chronic medical conditions which complicate her care. Her home medications were continued where appropriate Physical Exam Narrative General: Alert, Oriented x3, Cooperative, No apparent distress HEENT: Atraumatic, PERRLA, EOMI, Normocephalic Oral: Moist Mucosa Neck: Supple, No JVD Lungs: Diminished, Normal air movement, No rhonchi, No wheeze, No rales Cardiovascular: Regular rate, Regular Rhythm, Normal S1, Normal S2, No murmurs Abdomen: Soft, Non Tender, Non-Distended, No Hepato-splenomegaly Extremities: No edema, Capillary Refill Less than 3 Seconds Skin: No rashes, No breakdown Musculoskeletal: No Tenderness to Palpation of Joints or Extremities Neurological: Cranial nerves II-XII grossly intact, Motor Exam 5/5 strength throughout, Sensory exam intact to light touch and pain Psych/Mental Status: Normal Affect, Appropriate Weight / BMI Weight Weight: 122 lb 9.232 oz Body Mass Index (BMI) 20.4 ABG / Lab / Microbiology Data 11/21/23 05:15 11/20/23 06:30 Laboratory: Laboratory Results - last 24 hr 11/21/23 05:15: WBC 4.7, RBC 3.54 L, Hgb 10.2 L, Hct 30.8 L, MCV 87.0, MCH 28.8, MCHC 33.1, RDW Std Deviation 48.1 H, RDW Coeff of David 15.0 H, Plt Count 141 L, MPV 9.7, Immature Gran % (Auto) 3.400 H, Neut % (Auto) 62.0, Lymph % (Auto) 14.3 L, [place] % (Auto) 18.8 H, Eos % (Auto) 0.9, Baso % (Auto) 0.6, Absolute Neuts (auto) 2.9, Absolute Lymphs (auto) 0.67 L, Nucleated RBC % 0 Microbiology: Microbiology 11/18/23 15:24 Stool Stool Occult Blood (CARMEN) - Final D/C Instructions Discharge Diet: Low fat / Low cholesterol Call your doctor if you observe: Fever of 101 or Higher, Shortness of breath, Dizziness, Fainting spells, Swelling in the ankles, Chest pain and Increased palpitations (irregular heartbeat) Meaningful Use Info Meaningful Use Diagnoses (Choose all that apply): None applicable Discharge Plan Admission Admit Date/Time: 11/18/23 14:48 Attending Provider: Sachin Murillo Primary Care Provider: Daron Benton Consulting Providers: Sommer Resendiz Instructions Additional Instructions / Restrictions: Follow-up with your PCP in 3 to 5 days to monitor your hemoglobin. Your dark stools were likely due to Pepto-Bismol and your hemoglobin has remained stable here but you were started on anticoagulation for your atrial fibrillation in order to decrease risk of stroke which can worsen any bleeding. Discharge Orders/Prescriptions Prescriptions: New metoprolol tartrate 25 mg Tablet 12.5 mg PO BID 30 Days Qty: 30 0RF Eliquis 5 mg Tablet 5 mg PO BID 30 Days Qty: 60 0RF Continued gabapentin 800 mg tablet 800 mg PO TID baclofen 20 mg tablet 20 mg PO Q8H levothyroxine 50 mcg tablet 50 mcg PO DAILY Patient Comments: take 1 tablet by mouth once daily oxycodone 10 mg tablet 10 mg PO Q6H PRN Patient Comments: take 1 tab q6 PRN for pain lisinopril 5 mg tablet 5 mg PO DAILY Qty: 30 11RF Hold Instructions: Hold for 7 days. cholecalciferol (vitamin D3) 5,000 UNIT tablet 5,000 unit PO DAILY Patient Comments: supplement dextromethorphan-guaifenesin [Mucinex DM] 60-1,200 mg tablet extended release 12 hr 1 tab PO Q12H 7 Days Qty: 14 0RF clopidogrel 75 mg tablet 75 mg PO DAILY Qty: 90 3RF Referrals / Follow Up: Daron Benton MD [Primary Care Provider] - 11/27/23 11:00 am Betsey Lindquist PA [Med Staff - [facility] Practice Prof] - 12/21/23 1:00 pm Disposition Disposition (needs filled in before D/C Order can be placed): Home, Self Care Charges/Coding Visit Charges Inpatient E&M: 60475 Disch Hosp >30min
[2023-11-21 11:50] VITALS: BP 134/72; PULSE 54; RESP 16; TEMP 36.8; O2SAT 94
--- NOTE | 2023-11-21 11:55 | PHA.DC_ITS ---
Pharmacy [facility] has performed discharge medication reconciliation and counseling for this patient. 1. APIXABAN 5MG PO BID 2. METOPROLOL TARTRATE 12.5MG PO BID The patient's discharge medication list was reviewed for discrepancies and discrepancies were resolved. The patient was counseled on the following discharge medications and changes in medications for homegoing were reviewed. The Reason for Use, instructions for use, and potential side effects were reviewed for all new medications. The patient's questions regarding all of their medications were answered. The patient was able to verbally demonstrate an understanding of their discharge medications. Medications at Discharge Home Medications cholecalciferol (vitamin D3) 125 mcg (5,000 unit) tablet 5,000 unit PO DAILY supplement 12/16/13 gabapentin 800 mg tablet 800 mg PO TID MS 07/16/18 baclofen 20 mg tablet 20 mg PO Q8H MS 08/11/21 levothyroxine 50 mcg tablet 50 mcg PO DAILY thyroid 08/11/21 oxycodone 10 mg tablet 10 mg PO Q6H PRN pain 05/24/23 clopidogrel 75 mg tablet 75 mg PO DAILY dose increased, pt is OUT of med, please fill #90 TABLETS 06/01/23 lisinopril 5 mg tablet 5 mg PO DAILY blood pressure #30 tabs 11/02/23 dextromethorphan-guaifenesin ER 60 mg-1,200 mg tab,extend release,12hr (Mucinex DM) 1 tab PO Q12H cough/congest 7 days #14 tabs 11/16/23 apixaban 5 mg tablet (Eliquis) 5 mg PO BID 30 days #60 tabs 11/21/23 metoprolol tartrate 25 mg tablet 12.5 mg (1/2 x 25 mg) PO BID 30 days #30 tabs 11/21/23
--- NOTE | 2023-11-21 12:12 | CASEMGMT ---
YAW called Tena Santoro, patient's [facility] case management social worker and let her know patient is being discharged today. Lizbeth WINN
== END 2023-11-21 12:25 | disposition home health service (06) | DRG 310 ==
LOC: ED 14:59 → PCU 15:10
PROVIDERS: Internal Medicine; Admitting Provider Family Medicine; Emergency Provider Emergency Medicine; PCP Family Medicine; Visit Provider Family Medicine
DX: I48.0 Paroxysmal atrial fibrillation (principal); L40.50 Arthropathic psoriasis, unspecified; G35 Multiple sclerosis; N18.30 Chronic kidney disease, stage 3 unspecified; I73.9 Peripheral vascular disease, unspecified; I12.9 Hypertensive chronic kidney disease with stage 1 through stage 4 chronic kidney disease, or unspecified chronic kidney disease; E89.0 Postprocedural hypothyroidism; E78.5 Hyperlipidemia, unspecified; I25.10 Atherosclerotic heart disease of native coronary artery without angina pectoris; R19.5 Other fecal abnormalities; R79.89 Other specified abnormal findings of blood chemistry; G89.4 Chronic pain syndrome; Z95.820 Peripheral vascular angioplasty status with implants and grafts; Z79.02 Long term (current) use of antithrombotics/antiplatelets; Z79.891 Long term (current) use of opiate analgesic; R07.89 Other chest pain; Z79.890 Hormone replacement therapy; Z79.899 Other long term (current) drug therapy; Z87.891 Personal history of nicotine dependence; Z86.73 Personal history of transient ischemic attack (TIA), and cerebral infarction without residual deficits
CPT/HCPCS: 36415; 71045; 80048; 80053; 80061; 81001; 82274; 83735; 84439; 84443; 84484; 85014; 85018; 85025; 93005; 93306; 94640; 94668; 97110; 97162; 97165; 99284; 99406; J7030; A4216; J2405

== ENCOUNTER 2023-11-26 12:47 | Emergency (ER) | payer MEDICARE, MEDICAID, SELFPAY ==
[2023-11-26 12:47] VITALS: BP 127/72; PULSE 50; RESP 18; TEMP 36.1; O2SAT 95; BMI 20.2
--- NOTE | 2023-11-26 13:09 | EKG12_ITS ---
Test Reason : SOB/DIZZINESS Blood Pressure : / mmHG Vent. Rate : 048 BPM Atrial Rate : 048 BPM P-R Int : 160 ms QRS Dur : 082 ms QT Int : 506 ms P-R-T Axes : 057 011 063 degrees QTc Int : 452 ms Sinus bradycardia Possible Left atrial enlargement Borderline ECG Confirmed by OTILIA FOX, MAYI ([id number]), assistant production editor SELAM BARRETO ([id number]) on 11/27/2023 10:07:27 AM Referred By: Confirmed By:MAYI BINGHAM MD
--- NOTE | 2023-11-26 13:10 | RAD_ITS ---
STUDY: X-RAY CHEST REASON FOR EXAM: Female, 68 years old. Cough. TECHNIQUE: Frontal and lateral views of the chest on 3 images. COMPARISON: November 19, 2023 FINDINGS: Stable hyperinflation. There is no demonstrated pleural abnormality. Borderline cardiomegaly unchanged. Normal mediastinum and david. Normal visualized pulmonary arteries. Normal visualized aortic arch and descending thoracic aorta. Mild dextroscoliosis of the thoracic spine. Normal visualized ribs, clavicles, and shoulders. There is no demonstrated abnormality of the visualized soft tissue structures of the upper abdomen. RAD/Chest PA and Lateral IMPRESSION: Stable chest with no acute or active cardiopulmonary disease. Electronically Signed: Benjamin Song MD at 14:04 EST ,
--- NOTE | 2023-11-26 13:12 | EDS_ITS ---
HPI <STEPHANY Hall - Last Filed: 11/26/23 15:12> History of Present Illness Chief Complaint: Shortness of Breath Narrative Narrative: Patient is 68-year-old female with history of MS who was recently admitted here for pneumonia, A-fib, influenza. Patient was discharged on November 21, 2023, patient states since then, she has been having fluctuations in her blood pressure. She been having some pressure. Patient denies any chest pain. Patient states that her breathing has been improving. She does still have a cough. She states she is having intermittent dizziness and head pressure secondary to her elevation in blood pressure. She is here for evaluation. PFS <STEPHANY Hall - Last Filed: 11/26/23 15:12> [facility] Medical History Angina pectoris Bilateral carotid artery stenosis Chronic pain syndrome Coronary artery disease Essential (primary) hypertension Fatty liver GERD (gastroesophageal reflux disease) Goiter History of transient ischemic attack (TIA) HLD (hyperlipidemia) Hypothyroidism Multiple sclerosis Nonobstructive atherosclerosis of coronary artery Nonsustained paroxysmal supraventricular tachycardia Osteoarthritis Osteoporosis Peripheral vascular occlusive disease Psoriasis Psoriatic arthritis Smoker Thrombocytopenia TIA (transient ischemic attack) Home Medications cholecalciferol (vitamin D3) 125 mcg (5,000 unit) tablet 5,000 unit PO DAILY supplement 12/16/13 [History Last Taken 11/17/23] gabapentin 800 mg tablet 800 mg PO TID MS 07/16/18 [History Last Taken 11/18/23] baclofen 20 mg tablet 20 mg PO Q8H MS 08/11/21 [History Last Taken 11/18/23] levothyroxine 50 mcg tablet 50 mcg PO DAILY thyroid 08/11/21 [History Last Taken 11/18/23] oxycodone 10 mg tablet 10 mg PO Q6H PRN pain 05/24/23 [History Last Taken 11/18/23] clopidogrel 75 mg tablet 75 mg PO DAILY dose increased, pt is OUT of med, please fill #90 TABLETS 06/01/23 [Rx Last Taken 11/18/23] lisinopril 5 mg tablet 5 mg PO DAILY blood pressure #30 tabs 11/02/23 [Rx Last Taken 11/18/23] dextromethorphan-guaifenesin ER 60 mg-1,200 mg tab,extend release,12hr (Mucinex DM) 1 tab PO Q12H cough/congest 7 days #14 tabs 11/16/23 [Rx Last Taken 11/17/23] apixaban 5 mg tablet (Eliquis) 5 mg PO BID 30 days #60 tabs 11/21/23 [Rx Last Taken Unknown] metoprolol tartrate 25 mg tablet 12.5 mg (1/2 x 25 mg) PO BID 30 days #30 tabs 11/21/23 [Rx Last Taken Unknown] Allergy/AdvReac Type Severity Reaction Status Date / Time colestipol [From Colestid] Allergy Mild unknown Verified 11/26/23 12:47 pregabalin [From Lyrica] Allergy Mild Hives Verified 11/26/23 12:47 amitriptyline Allergy Rash Verified 11/26/23 12:47 temazepam [From Restoril] AdvReac Mild Nausea/Vom/ Verified 11/26/23 12:47 Diarrhea Antihistamines - Alkylamine AdvReac Nausea/Vom/ Verified 11/26/23 12:47 Diarrhea Antihistamines - Ethanolamine AdvReac Nausea/Vom/ Verified 11/26/23 12:47 Diarrhea Antihistamines - AdvReac Nausea/Vom/ Verified 11/26/23 12:47 Ethylenediamine Diarrhea Antihistamines - Piperazine AdvReac Nausea/Vom/ Verified 11/26/23 12:47 Diarrhea Antihistamines - Piperidine AdvReac Nausea/Vom/ Verified 11/26/23 12:47 Diarrhea aspirin AdvReac I'M ON Verified 11/26/23 12:47 BLOOD THINNERS codeine AdvReac Nausea Verified 11/26/23 12:47 Corticosteroids AdvReac Upset Verified 11/26/23 12:47 (Glucocorticoids) Stomach morphine AdvReac Nausea Verified 11/26/23 12:47 Yeiauvw-LPD-DgA Reductase AdvReac Nausea Verified 11/26/23 12:47 Inhibitor [Cnooebe-Rcm-Sco Reductase Inhibitor] Family History Mother Cancer CAD (coronary artery disease) Brain tumor Grandfather CVA (cerebral vascular accident) Father CAD (coronary artery disease) Ruptured abdominal aortic aneurysm (AAA) Sister Brain aneurysm Surgical History Brain aneurysm Fracture of right lower leg H/O hemorrhoidectomy H/O: History of angioplasty of peripheral vessel History of angioplasty of peripheral vessel (07/11/19) History of appendectomy History of section History of cholecystectomy History of hemorrhoidectomy History of hysterectomy History of left breast biopsy History of left heart catheterization (01/25/15) History of left-sided carotid endarterectomy History of partial thyroidectomy (11/30/05) History of right-sided carotid endarterectomy S/P coil embolization of cerebral aneurysm S/P hysterectomy S/P insertion of iliac artery stent S/P thyroidectomy Stenosis of left subclavian artery Social History household members: none Smoking Status: Former smoker alcohol intake: never caffeine: Yes Type: coffee and tea ROS <STEPHANY Hall - Last Filed: 11/26/23 15:12> ROS ED ROS Narrative Constitutional: Negative for fever, chills, weight loss, weakness Eyes: Negative for vision loss, vision change, double vision ENT: Negative for any sore throat, ear pain, congestion Cardiovascular: Negative for any chest pain, tightness, palpitations, or fluctuations in the blood pressure Respiratory: Negative for any sputum production, hemoptysis, dyspnea, dyspnea on exertion, orthopnea. Positive for cough Gastrointestinal: Negative for any abdominal pain, nausea, vomiting, diarrhea, constipation, blood in stool, blood in vomit : Negative for any urinary frequency, dysuria, retention, blood in urine Muscle skeletal: Negative for any myalgias, arthralgias, neck pain, back pain Neurological: Negative for any headache, syncope, paresthesias. Positive for intermittent dizziness Skin: Negative for any rashes, lumps, itching, abrasions, lacerations Psychiatric: Negative for any depression, anxiety, stress, suicidal ideation, homicidal ideation Hematologic: Negative for any easy bruising, excessive bruising, easy bleeding Allergies: Negative for any eczema, hives, rash EXAM <STEPHANY Hall - Last Filed: 11/26/23 15:12> Physical Exam Narrative Exam Narrative: Vital signs reviewed. Patient on evaluation looks generally well vital signs are stable. HEET: Head normocephalic atraumatic, TMs clear bilaterally. Posterior pharynx is clear, moist mucous membranes. Nares clear bilaterally. Neck: Supple with no lymphadenopathy or tenderness. No signs of meningismus. Cardiac: Regular rate and rhythm no murmurs gallops or rubs, equal peripheral pulses bilaterally. Respiratory: Patient does have some rhonchorous breath sounds to the both the mid left and right lung. Patient's pneumonia was on the right mid lobe.. No chest tenderness. Abdomen: Soft, nontender, nondistended. No abdominal bruit or pulsatile masses. No hepatosplenomegaly Extremities: No peripheral edema, no signs of gross trauma or deformity. Active full range of motion of all extremities. Neuro: Cranial nerves II through XII intact, no focal neurological deficits. Skin: Clean dry and intact with no rash, purpura, petechiae, vesicles or pu stules. Backs/flank: No CVA tenderness, no midline spinal tenderness, no deformity. Psych: Normal mood and affect. No SI, HI or acute psychosis. Const Vital Signs: 11/26/23 12:47 11/26/23 13:53 11/26/23 15:22 Temperature 97.0 F L Temperature Source Temporal Pulse Rate 50 L 69 Respiratory Rate 18 16 Respiratory Effort Labored Respiratory Depth Normal Respiratory Pattern Normal Blood Pressure 127/72 H 149/81 H Blood Pressure Mean 90 103 Pulse Ox 95 96 Oxygen Delivery Method Room Air Positive well nourished and well developed General Appearance ED: well developed <Dr. Ramírez Onofre MD - Last Filed: 11/26/23 16:46> Physical Exam Const Vital Signs: 11/26/23 12:47 11/26/23 13:53 11/26/23 15:22 Temperature 97.0 F L Temperature Source Temporal Pulse Rate 50 L 69 Respiratory Rate 18 16 Respiratory Effort Labored Respiratory Depth Normal Respiratory Pattern Normal Blood Pressure 127/72 H 149/81 H Blood Pressure Mean 90 103 Pulse Ox 95 96 Oxygen Delivery Method Room Air MDM <STEPHANY Hall - Last Filed: 11/26/23 15:12> MDM Lab Data Labs: Laboratory Results - last 24 hr 11/26/23 13:20 WBC 9.7 RBC 3.84 L Hgb 10.9 L Hct 34.2 L MCV 89.1 MCH 28.4 MCHC 31.9 L RDW Std Deviation 49.2 H RDW Coeff of David 15.4 H Plt Count 265 MPV 8.9 Immature Gran % (Auto) 0.800 Neut % (Auto) 69.4 Lymph % (Auto) 19.2 [place] % (Auto) 9.7 Eos % (Auto) 0.4 Baso % (Auto) 0.5 Absolute Neuts (auto) 6.8 Absolute Lymphs (auto) 1.87 Nucleated RBC % 0 Sodium 142 Potassium 4.2 Chloride 108 H Carbon Dioxide 31.0 Anion Gap 3 L BUN 16 Creatinine 1.16 H Estim Creat Clear Calc 39.99 Est GFR (MDRD) Af Amer 60 Est GFR (MDRD) Non-Af 49 L BUN/Creatinine Ratio 13.8 Glucose 120 H Calcium 8.2 L Troponin I High Sens 10 Radiography Diagnostic Testing: Clinical Impression(s) from Imaging Studies Chest X-Ray 11/26/23 13:10 IMPRESSION: Stable chest with no acute or active cardiopulmonary disease. Electronically Signed: Benjamin Song MD at 14:04 EST , EKG Sinus bradycardia: Attestation: I personally reviewed and interpreted this EKG as follows: Comments: Patient EKG shows sinus bradycardia, rate of 48 bpm, WA interval 160 ms, QRS duration 82 ms, no acute ST elevation, no acute infarct noted. Treatment and Re-Evaluation :: Appears generally well, patient's vital signs are stable. Presenting to the emergency department for dizziness, complaints of fluctuations in blood pressure. Patient received a cardiac workup including a troponin. Laboratory values to rule out any electrolyte abnormalities. Chest x-ray two-view to ensure that the pneumonia is dissipating. EKG will be completed to ensure that the patient is no longer in atrial fibrillation. Differential diagnosis includes atrial fibrillation, hypertensive urgency, pleural effusions. Patient CBC shows a stable anemia with a hemoglobin of 10.9, patient's chemistries were unremarkable, troponin was negative. Creatinine was 1.16, patient was given 1 L of normal saline. EKG was unremarkable. Chest x-ray showed stable chest with no acute or active cardiopulmonary disease. At this time, on reevaluation the patient is amatory, patient is eating and drinking normally, I do believe the patient is stable for discharge. There is no evidence of any ACS, MT, CHRISTOPHER, new pneumonia or pleural effusions. Patient to follow-up closely with her PCP. Patient is answered, patient stable for discharge. <Dr. Ramírez Onofre MD - Last Filed: 11/26/23 16:46> [facility] Narrative Medical decision making narrative: I have personally performed a face to face assessment of the patient and have reviewed the ANTHONY Note. I performed a substantive portion of the visit including all aspects of the following. My white findings include: History is 68-year-old female recent admissions for A-fib, influenza and pneumonia. Presents today with cough and shortness of breath. Denies vomiting or diarrhea. No hemoptysis. No chest pain. Exam is [68-year-old female vital signs are stable afebrile. Pulse ox 95% on room air no hypoxia. No distress. H EENT exam unremarkable. Given dry reactive light. No facial droop. Normal speech. Moist mucous membranes. Lungs coarse breath sounds. No rales. No significant wheezing. Heart regular rhythm no murmur. Chest wall and ribs nontender. Abdomen soft nontender. Moving all 4 extremities. Nontender no edema. Neurologically she is awake and alert. Answering questions following commands.] Medical Decision Making [Karri workup.] Other additions or changes: [None] History & Record Review Discussion w/independent historian: Patient Additional record(s) reviewed:: Prior inpatient record, Prior outpatient record and Prior labs Lab Data Attestation: I reviewed the patient's lab results. Lab results narrative: CBC shows a white count of 9. H&H of 10.9 and 34 which is her baseline anemia. Platelets 265. Electrolytes show gap of 3. Normal BUN with a creatinine of 1.1. Glucose 120. Troponin 10. Chest x-ray is unremarkable no signs of pneumonia or effusion. Labs: Laboratory Results - last 24 hr 11/26/23 13:20 WBC 9.7 RBC 3.84 L Hgb 10.9 L Hct 34.2 L MCV 89.1 MCH 28.4 MCHC 31.9 L RDW Std Deviation 49.2 H RDW Coeff of David 15.4 H Plt Count 265 MPV 8.9 Immature Gran % (Auto) 0.800 Neut % (Auto) 69.4 Lymph % (Auto) 19.2 [place] % (Auto) 9.7 Eos % (Auto) 0.4 Baso % (Auto) 0.5 Absolute Neuts (auto) 6.8 Absolute Lymphs (auto) 1.87 Nucleated RBC % 0 Sodium 142 Potassium 4.2 Chloride 108 H Carbon Dioxide 31.0 Anion Gap 3 L BUN 16 Creatinine 1.16 H Estim Creat Clear Calc 39.99 Est GFR (MDRD) Af Amer 60 Est GFR (MDRD) Non-Af 49 L BUN/Creatinine Ratio 13.8 Glucose 120 H Calcium 8.2 L Troponin I High Sens 10 Radiography Chest X-Ray - ED: Read by ED Physician, Read by Radiologist, Lungs, Mediastinum, Bony Structures, No Acute Disease and Chronic Changes Diagnostic Testing: Clinical Impression(s) from Imaging Studies Chest X-Ray 11/26/23 13:10 IMPRESSION: Stable chest with no acute or active cardiopulmonary disease. Electronically Signed: Benjamin Song MD at 14:04 EST Reading Location ID and State: [address] [place] [address] , Service support , Chest x-ray, 2 views, interpreted by myself and radiologist shows no acute abnormality. Normal cardiac silhouette. Normal mediastinum. Normal lung duarte. Discharge Plan Triage Chief Complaint: Shortness of Breath ED Midlevel Provider: Justice Cid ED Provider: Ramírez Onofre Dx/Rx/DC Orders Clinical Impression: Dizziness, Cough Instructions: ED Dizziness, Uncertain Cause Prescriptions: No Action gabapentin 800 mg tablet 800 mg PO TID baclofen 20 mg tablet 20 mg PO Q8H levothyroxine 50 mcg tablet 50 mcg PO DAILY Patient Comments: take 1 tablet by mouth once daily oxycodone 10 mg tablet 10 mg PO Q6H PRN Patient Comments: take 1 tab q6 PRN for pain lisinopril 5 mg tablet 5 mg PO DAILY Qty: 30 11RF Hold Instructions: Hold for 7 days. cholecalciferol (vitamin D3) 5,000 UNIT tablet 5,000 unit PO DAILY Patient Comments: supplement dextromethorphan-guaifenesin [Mucinex DM] 60-1,200 mg tablet extended release 12 hr 1 tab PO Q12H 7 Days Qty: 14 0RF metoprolol tartrate 25 mg Tablet 12.5 mg PO BID 30 Days Qty: 30 0RF Eliquis 5 mg Tablet 5 mg PO BID 30 Days Qty: 60 0RF clopidogrel 75 mg tablet 75 mg PO DAILY Qty: 90 3RF Primary Care Provider: Daron Benton Referrals: Daron Benton MD [Primary Care Provider] - Activity Restrictions/Additional Instructions: Continue following up outpatient. You need to follow-up with your PCP, make them aware that you no longer taking her Eliquis. Return for any worsening symptoms. Chest x-ray was clear today. Disposition Disposition: Home, Self Care Discharge Date/Time: 11/26/23 15:24
[2023-11-26 13:26] LABS: Absolute Lymphocyte Count 1.87 X10^3/uL (0.83-4.51); Absolute Neutrophil Count 6.8 X10^3/uL (2.0-7.7); Basophil# 0.05 X10^3/uL; Basophil% 0.5 % (0-1); Eosinophil# 0.04 X10^3/uL; Eosinophils% 0.4 % (0-5); Hematocrit 34.2 % (37-47); Hemoglobin 10.9 g/dL (12.0-15.0); Lymphocyte # 1.87 X10^3/ul (0.83-4.51); Lymphocyte % 19.2 % (19-41); Mean Corp Hgb Conc 31.9 g/dL (32-36); Mean Corpuscular Hgb 28.4 pg (27.0-32.0); Mean Corpuscular Volume 89.1 fL (81-99); Mean Platelet Vol. 8.9 fl (6.2-12.0); Monocyte# 0.94 X10^3/uL; Monocyte% 9.7 % (0-10); NRBC Flagged by Analyzer 0 % (0-5); Neutrophil # 6.76 X10^3/uL (2.7-7.7); Neutrophil % 69.4 % (47-70); Platelet Count 265 K/mm3 (150-450); RBC Distribution Width CV 15.4 % (11.6-14.6); RBC Distribution Width SD 49.2 fl (35.1-43.9); Red Blood Count 3.84 M/mm3 (4.2-5.4); White Blood Count 9.7 K/mm3 (4.4-11.0)
[2023-11-26 13:45] LABS: Anion Gap 3 (5-15); BUN 16 mg/dL (7-18); BUN/Creat Ratio 13.8 RATIO (10-20); Calcium,Total 8.2 mg/dL (8.5-10.1); Chloride 108 mmol/L (98-107); Creatinine, Serum 1.16 mg/dL (0.55-1.02); EST Glomerular Filtration Rate 49 mL/min (>60); Est Glom Filt Rate - Afr Amer 60 mL/min (>60); Estimated Creatinine Clearance 39.99 ml/min; Glucose 120 mg/dL (74-106); Potassium 4.2 mmol/L (3.5-5.1); Sodium Level 142 mmol/L (136-145); Troponin-I HS 10 pg/mL (3.0-54.0)
--- OUTSIDE RECORDS SUMMARY | 2023-11-26 14:43 | XMS RPT_ITS | CCD ---
Author Name Unknown Address [address] [place] [address] Organization [facility] Care Team Providers Care Mobility Developer Name Role Phone LYNNE LONGORIA Unavailable UnavailZHANE [...] adverse reactions to drug (disorder) 04-28-20 04 [facility] Repository (2 sources) clopidogrel; Translations: [CLOPIDOGREL BISULFATE] Drug Allergy 12-18-19 12 [facility] Repository (8 sources) codeine; Translations: [CODEINE] Drug Allergy 04-28-20 04 [facility] Repository (2 sources) fenofibrate; Translations: [FENOFIBRATE MICRONIZED] Drug Allergy 04-27-20 11 [facility] Repository (7 sources) fentaNYL; Translations: [FENTANYL] Drug Allergy 02-19-20 12 [facility] Repository (2 sources) Hmg-Coa Reductase Inhibitors (Statins); Translations: [TUXOSYE-DKH-GBV REDUCTASE INHIBITORS] Propensity to adverse reactions to drug (disorder) 04-27-20 11 [facility] Repository (8 sources) morphine; Translations: [MORPHINE] Drug Allergy 04-28-20 04 Vomiting [facility] Repository (7 sources) predniSONE; Translations: [PREDNISONE] Drug Allergy 12-15-19 09 [facility] Repository (7 sources) salicylic acid; Translations: [SALICYLATES] Drug Allergy 12-04-19 09 [facility] Repository (1 source) Aspirin; Translations: [aspirin] Drug Allergy Ulcer (morphologic abnormality) [facility] (1 source) Colestipol; Translations: [colestipol] Drug Allergy [facility] (1 source) HMG-CoA reductase inhibitor; Translations: [statins] Drug allergy [facility] (5 sources) Amitriptyline Drug Allergy 03-12-20 19 Rash [facility] (5 sources) clopidogrel Drug Allergy 12-18-19 12 [facility] (5 sources) Fenofibrate Drug Allergy 04-27-20 11 [facility] (5 sources) Antihistamines, Diphenhydramine-T ype Drug Intolerance 09-17-20 [facility] Medications Current Medications Medication Drug Class(es) [...] Pressure Non-Invasive 66 1 TYE BARNETT MD [facility] 11-09-2022 14:07-0500 Heart rate 56 /min TYE BARNETT MD [facility] 11-09-2022 14:07-0500 Systolic Blood Pressure Non-Invasive 155 1 TYE BARNETT MD [facility] 11-09-2022 13:42-0500 Diastolic Blood Pressure Non-Invasive 69 1 TYE BARNETT MD [facility] 11-09-2022 13:42-0500 Heart rate 58 /min TYE BARNETT MD [facility] 11-09-2022 13:42-0500 Systolic Blood Pressure Non-Invasive 156 1 TYE BARNETT MD [facility] 11-09-2022 13:14-0500 Diastolic Blood Pressure Non-Invasive 86 1 TYE BARNETT MD [facility] 11-09-2022 13:14-0500 Heart rate 54 /min TYE BARNETT MD [facility] 11-09-2022 13:14-0500 Systolic Blood Pressure Non-Invasive 175 1 TYE BARNETT MD [facility] 11-09-2022 11:25-0500 Reason For Taking VItal Signs TYE BARNETT MD [facility] 11-09-2022 11:25-0500 Respiratory rate 16 /min TYE BARNETT MD [facility] 11-09-2022 11:03-0500 Respiratory rate 16 /min TYE BARNETT MD [facility] 11-09-2022 10:38-0500 Respiratory rate 16 /min TYE BARNETT MD [facility] 11-09-2022 06:29-0500 Blood Pressure Location TYE BARNETT MD [facility] 11-09-2022 06:29-0500 Body height 167.6 cm TYE BARNETT MD [facility] 11-09-2022 06:29-0500 Body temperature 97.7 [degF] TYE BARNETT MD [facility] 11-09-2022 06:29-0500 Body weight 54.8 kg TYE BARNETT MD [facility] 11-09-2022 06:29-0500 Body weight 19.51 kg/m2 TYE BARNETT MD [facility] Encounters Encounter Date Encounter Type Care Provider Facility Start: 10-26-2023 End: 10-26-2023 ambulatory TYE BARNETT Facility:A Start: 10-05-2023 End: 10-06-2023 ambulatory [facility] Start: 10-05-2023 End: 10-05-2023 Office outpatient visit 40 minutes Macey Main MD Work Phone: [facility] Procedures Date Procedure Procedure Detail [...] DTaP/Tdap/Td Vaccines (3 - Td or Tdap) [facility] Start: 07-20-2023 COVID-19 Vaccine ( season) COVID-19 Vaccine ( season) [facility] Start: 07-20-2023 Influenza vaccination Influenza Vacc ine (#1) [facility] Start: 04-19-2021 Lipid panel Lipid Panel [facility] Start: 2014 RSV Immunization age d 60 or older (1 - 1-dose 60+ series) RSV Immunization aged 60 or older (1 - 1-dose 60+ series) [facility] Start: 08-19-2009 Pneumococcal Vaccine : 65+ Years (2 - PCV) Pneumococcal Vaccine: 65+ Years (2 - PCV) [facility] Start: 2004 Zoster Vaccines (1 of 2) Zoster Vacc clifford (1 of 2) [facility] Start: 1994 Screening for malign ant neoplasm of breast Mammogram [facility] Start: 1972 Diabetes mellitus screening Diabetes Screening [facility] Start: 1972 Hepatitis C screening Hepatitis C Sc reening [facility] Start: 1966 Depression Screening Depression Scre ening [facility] Start: 1954 Medicare Advantage A nnual Wellness Visit (AWV) Medicare Advantage Annual Wellness Visit (AWV) [facility] Start: 1955 Screening for malign ant neoplasm of colon [facility] Start: 1954 Screening for osteoporosis Bone Dens ity Scan [facility] Start: 1954 Thyroid stimulating hormone measurement TSH Level [facility] Immunizations Immunization Date Immunization Notes Care Provider Fa cility 09-16-2022 influenza virus vacc ine, unspecified formulation Macey Main MD Work Phone: [facility] Payers Date Payer Category Payer Medicare [id number] 2022 Medicare [employer] [id number] 2022-Present [address] [place] [address] Medicare HMO [id number] 1955 Unknown [id number] Social History Date Type Detail Facility Tobacco smoking status NHIS Smokes tobacc o daily [facility] History of tobacco use Cigarette Smoker [facility] Start: 04-04-2023 End: 10-05-2023 Alcohol intake Ex-drinker (finding) [facility] Start: 04-04-2023 History of Social function [facility] Start: 04-04-2023 Tobacco use panel [facility] Start: 1955 Sex Assigned At Not on file [facility] Functional Status Date Assessment Result Facility 11-09-2022 Functional Status Ambulating in room [facility] 11-09-2022 Functional Status [facility] 11-09-2022 Functional Status Maintained [facility] Mental Status Date Assessment Result Facility 11-09-2022 Mental Status Orientation Oriented x 4 [facility] 11-09-2022 Mental Status [facility] 11-09-2022 Mental Status [facility] Clinical Notes 02-09-2021 to 10-05-2023 Macey Main MD - 10/05/2023 3:00 PM ESTTelephone Encounter - Yanely Kwon MA - 10/05/2023 12:58 PM ESTTelephone Encounter - Yanely Kwon MA - 10/05/2023 12:58 PM EST Note Date & Type Note Facility 10-05-2023 History of Present illness Narrative Images from the original note were not included. [facility] [address] [facility] [address] Dept: [phone] Dept Loc: [phone] Patient was seen today via Telehealth by [...] stated that they are currently in the [facility]. If the patient is a minor, [...] TSH VITAMIN B12: No results found for: VIIHQTQL34 No results found for: PHENYTOIN , PHENOBARB , VALPROATE , CBMZ No results found for: LEVETIRACETA , FERRITIN , CRP , DENNIS , ANCA FERRITIN: No results found for: FERRITIN @RESULTINGLABINFO@ No components found for: TOPIRA No results found for: CHRISTIANO , IMMUNOGLOBUL , OLIGOBANDS No results found for: AQB23LI , HEPCAB No results found for: CRP , ANATITER , ANCA ---- @LASTAPPOINTMENTTHISPROV@ ECG 12 lead SINUS BRADYCARDIA PROBABLE LEFT ATRIAL ABNORMALITY No previous ECG available for comparison Electronically Signed On 04-05-2023 7:42:10 EDT by Juvenal Benton Patient Name: ANGÉLICA WALLER : 1955 [facility]#: [id number] Exam Date/Time: 04/04/2023 15:32 Procedure: CT HEAD [...] volume rendered reformats were obtained using a [employer] workstation. Review of the axial source data [...] of the major intracranial arteries at the [place] of [place]. 6. No hemodynamically significant narrowing [...] arranging for studies. documented in this encounter [facility] 10-05-2023 Telephone encounter Note Patient has been scheduled and records are being faxed over. [facility] 10-05-2023 Miscellaneous Notes Patient has been scheduled and records are being faxed over. Get records from [facility]. OK to add her on at 3 PM as a real or a virtual visit Name of caller: Angélica Contact phone number: [phone] Relationship to Patient: patient Provider: DR Main Practice: [facility] Chief Complaint/Reason for Call: pt was at [facility] yesterday for an MS attack she is asking for IV steroids order infusion. She was started at the hospital and will need additional steroids. Please advise when order placed. Best time of day caller can be reached: AM Patient advised that office/PCP has 24-48 business hours to return their call: Yes documented in this encounter [facility] 10-05-2023 Telephone encounter Note Get records from [facility]. OK to add her on at 3 PM as a real or a virtual visit [facility] 10-05-2023 Telephone encounter Note Name of caller: Angélica Contact phone number: [phone] Relationship to Patient: patient Provider: DR Main Practice: [facility] Chief Complaint/Reason for Call: pt was at [facility] yesterday for an MS attack she is asking for IV steroids order infusion. She was started at the hospital and will need additional steroids. Please advise when order placed. Best time of day caller can be reached: AM Patient advised that office/PCP has 24-48 business hours to return their call: Yes [employer] 06-15-2023 Telephone encounter Note Medication name: baclofen (Lioresal) 20 MG tablet [[id number]] Order Details Dose: 20 mg Route: Oral [...] Original Order: baclofen (Lioresal) 20 MG tablet [[id number]] Providers Ordering and Authorizing Provider: Macey Main MD NEGRA #: [id number] Ordering User: Macey Main MD Pharmacy [id number] [address] NEGRA #: -- Date of last office visit: 04/04/23 Date of next office visit: None Date of last refill: (see medication tab): 10/05/22 Updated/Validated preferred pharmacy: Yes Patient instructed to contact the pharmacy prior to picking up the medication: Yes [facility] [employer] 06-15-2023 Miscellaneous Notes Medication name: baclofen (Lioresal) 20 MG tablet [[id number]] Order Details Dose: 20 mg Route: Oral [...] Original Order: baclofen (Lioresal) 20 MG tablet [[id number]] Providers Ordering and Authorizing Provider: Macey Main MD NEGRA #: [id number] Ordering User: Macey Main MD [facility]acy [id number] [place] [id number] [address] NEGRA #: -- Date of last office visit: 04/04/23 Date of next office visit: None Date of last refill: (see medication tab): 10/05/22 Updated/Validated preferred pharmacy: Yes Patient instructed to contact the pharmacy prior to picking up the medication: Yes documented in this encounter [facility] 06-04-2023 Telephone encounter Note Rx renewed [facility] 06-04-2023 Miscellaneous Notes Rx renewed Please [...] the medication: Yes documented in this encounter [facility] 06-04-2023 Telephone encounter Note Please advise. [facility] 06-04-2023 Telephone encounter Note Medication name: [...] prior to picking up the medication: Yes [facility] 11-09-2022 Hospital Discharge instructions Patient Education [...] and water are not available, use hand hris developer. ?Change your dressing as told by your [...] the contrast dye from your body. Take lorc-dbb-jsfsnhx and prescription medicines only as told by [...] 05/24/2006 Document Revised: 10/18/2018 Document Reviewed: 10/10/2017 [employer] Patient Education 2020 [employer] 11/09/2022 12:48:21 Moderate Conscious Sedation, Adult, [...] until you are awake and alert. Take tyzv-njj-aboyzum and prescription medicines only as told by [...] 08/26/2014 Document Revised: 10/18/2018 Document Reviewed: 02/24/2017 [employer] Patient Education 2020 [employer]. Follow Up Care 10/27/2022 15:58:56 With:TYE BARNETT MD, [facility], Surgery, Vascular Surgeons Address: [facility] [address] [place] [id number] When: Unknown Comments:Follow-up as scheduled [facility] 11-09-2022 Summary of episode note Discharge Instructions Thank you for allowing [facility] to assist you with your healthcare needs. The following is important discharge information regarding your hospital visit. What to do next Follow Up Appointments Follow Up with TYE BARNETT MD, [facility], Surgery, Vascular Surgeons When Why: Follow-up as scheduled Where: [facility] [address] [facility] [address] [place] [address] The Following Activity and Diet [...] and water are not available, use hand hris developer. ? Change your dressing as told by [...] the contrast dye from your body. Take airx-lnz-urlsgis and prescription medicines only as told by [...] 05/24/2006 Document Revised: 10/18/2018 Document Reviewed: 10/10/2017 [employer] Patient Education 2020 [employer] Moderate Conscious [...] until you are awake and alert. Take ofoq-snt-qipcnyc and prescription medicines only as told by [...] 08/26/2014 Document Revised: 10/18/2018 Document Reviewed: 02/24/2017 [employer] Patient Education 2020 [employer]. Additional Information VACCINATE! IT SAVES LIVES! Members of the community who have not yet received the COVID-19 vaccine and would like to receive it can visit one of [facility] vaccine clinics. There are many vaccine clinic locations within the [facility]. For locations and available times, please visit [email or web address].gov/. It is important to note that some COVID mobile vaccine clinics are held outdoors and may be canceled in rainy or stormy conditions. To learn more about pediatric vaccinations (ages 5-11), we invite you to visit the [facility] webpage. [email or web address] To learn more about the COVID-19 vaccine, we invite you to visit the [facility] website for a list of frequently asked questions. [email or web address]-Mjn quently_[email or web address] [facility] Patient Portal Access Instructions: Stay connected with your healthcare team and access your personal medical information anytime with the [facility] Patient Portal.If you would like a full copy of your medical records, please contact the [facility] Medical Records Department, Sunday through Sunday between 8a.m. and 4:30p.m. Please follow the directions below to access the portal: 1.Access the email account you provided upon registration to the hospital.2.Look for an invitation email from [facility].3.Open the email and access the invitation link: Accept Invitation to [facility]4.Fill in the required duarte to create your account. Sign into [email or web address] with your username and password that you [...] you will allow to register on the [facility] Patient Portal for access to your information. You can also access the [facility] Patient Portal on the LawBite jennifer. Simply click on Health Records under Health Data and then click on the [employer] logo. HOW TO SAFELY DISPOSE OF PRESCRIPTION [...] Call your local pharmacy or go to [email or web address] to find one close to you.3.Make use of household items: Use cat litter or old coffee grounds to dispose medications if other options are not available. Mix your drugs with these household products, seal them in an airtight container and throw it into the garbage. Call [facility]: [phone] to be sure your drugs can be [...] aware that I should contact my doctor. 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 [facility] 11-09-2022 Note ORIGINAL Images acquired, not reported on this accession number. [facility] 04-12-2021 Note HNO ID: [id number] Author: TOMMY Flores) Service: ? Author Type: Keyboard Teacher Type: Progress Notes Filed: 04/12/2021 2:14 PM [...] DATE: April 12, 2021 TIME: 2:13 PM [facility] 02-09-2021 Note HNO ID: [id number] Author: Alexander Regalado Service: ? Author Type: [...] wound at high risk for bone exposure. [facility] Evaluation + Plan note No data available for this section [facility] documented in this encounter [facility]* Diagnosis Multiple sclerosis (HCC) Multiple sclerosis [facility] Diagnosis Multiple sclerosis (HCC)- Primary Multiple sclerosis Cerebrovascular disease, unspecified Primary hypertension Unspecified essential hypertension documented in this encounter [facility] Health Summary Purpose Family History [...] DATE CREATED AUTHOR AUTHOR'S ORGANIZ ATION 05/13/2018 [facility] DATE CREATED AUTHOR AUTHOR'S ORGANIZ ATION 12/13/2021 [facility] DATE CREATED AUTHOR AUTHOR'S ORGANIZ ATION 10/10/2023 [facility] DATE CREATED AUTHOR AUTHOR'S ORGANIZ ATION 11/15/2023 [facility] ([place]) Care Team (unrecognized sect ion and content) Care Team Related Persons Name: BHAVIK HONG Name: LOLA HONG Reason for Visit (unrecogniz ed section and content) Reason Onset Date Comments Med Refill 06/04/2023 Reason Onset Date Comments Med Refill 06/15/2023 Reason Onset Date Comments Orders 10/05/2023 Reason Comments Hospital Follow-up Care Teams (unrecognized sec tion and content) Mobility Developer Relationship Specialty Start Date End Date Jacinda Benton [address] [facility] [address] [place] [phone] PCP - General 06/23/20 Mobility Developer Relationship Specialty Start Date End Date Jacinda Benton [address] [facility] [address] [place] [phone] PCP - General 06/23/20 Mobility Developer Relationship Specialty Start Date End Date Jacinda Benton [address] [place] [phone] PCP - General 06/23/20 FOR RECORDS PERTAINING [...] BE BASED ON THE PRIMARY CLINICAL RECORDS. [facility] [email or web address] [facility]. provides no warranty or guarantee of the accuracy or completeness of information in this document.
[2023-11-26 15:22] VITALS: BP 149/81; PULSE 69; RESP 16; O2SAT 96
== END 2023-11-26 15:24 | disposition home or self-care (01) ==
PROVIDERS: Nurse Practitioner; Emergency Provider Emergency Medicine; PCP Family Medicine; Visit Provider Emergency Medicine
DX: R42 Dizziness and giddiness (principal); I48.91 Unspecified atrial fibrillation; R06.02 Shortness of breath; Z87.891 Personal history of nicotine dependence; R05.9 Cough, unspecified; Z86.69 Personal history of other diseases of the nervous system and sense organs; E78.5 Hyperlipidemia, unspecified; I25.10 Atherosclerotic heart disease of native coronary artery without angina pectoris; I10 Essential (primary) hypertension; Z79.899 Other long term (current) drug therapy
CPT/HCPCS: 71046; 80048; 84484; 85025; 93005; 99282; A4216

== ENCOUNTER 2023-11-27 08:59 | Emergency (ER) | payer MEDICARE, MEDICAID, SELFPAY ==
[2023-11-27 09:01] VITALS: BP 200/92; PULSE 54; RESP 16; TEMP 37.1; O2SAT 92
[2023-11-27 09:32] VITALS: BP 196/97; PULSE 51; PULSE 52; RESP 14; TEMP 36.6; O2SAT 95; O2SAT 96
--- NOTE | 2023-11-27 09:32 | EKG12_ITS ---
Test Reason : WEAKNESS Blood Pressure : / mmHG Vent. Rate : 050 BPM Atrial Rate : 050 BPM P-R Int : 148 ms QRS Dur : 080 ms QT Int : 486 ms P-R-T Axes : 060 015 061 degrees QTc Int : 443 ms Sinus bradycardia Possible Left atrial enlargement Abnormal ECG Confirmed by OTILIA FOX, MAYI ([id number]), editor index ADI CORDERO ([id number]) on 11/28/2023 9:09:02 AM Referred By: Confirmed By:MAYI BINGHAM MD
--- NOTE | 2023-11-27 09:33 | CT_ITS ---
INDICATION: Neuro deficit, acute, stroke suspected EXAMINATION: CT BRAIN WITHOUT CONTRAST, CTA HEAD, AND CTA NECK TECHNIQUE: Noncontrast axial images were obtained of the brain. Subsequently, routine carotid CT angiogram protocol was performed without and with IV contrast. In addition, images were obtained of the [place]. NASCET criteria using the distal ICAs for comparison were used for evaluation of stenoses. 3D reconstructions were reviewed. A radiation dose optimization technique was used for this scan. IV Contrast dosage and agent: 100 cc of Isovue-370 COMPARISON: Noncontrast CT scan of the brain of 10/05/2023. FINDINGS: --CT BRAIN WITHOUT CONTRAST: BRAIN PARENCHYMA: No intra- or extra-axial hemorrhage. Extensive streak artifacts from embolization coil in the region of the anterior inferior artery unchanged. No evidence of acute infarct. No intracranial mass or mass effect. There is preservation of the patel/white matter interface. Posterior fossa structures are unremarkable. CSF SPACES: Appropriate for age. No hydrocephalus. Basal cisterns are patent. CALVARIUM, SKULL BASE, PARANASAL SINUSES AND MASTOID AIR CELLS: Clear. No discrete lytic or blastic abnormalities. 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 RIGHT CCA: Mild atherosclerotic calcifications in the region of the body. RIGHT ICA: No occlusion, significant stenosis or dissection. LEFT CCA: No occlusion, significant stenosis or dissection. LEFT ICA: Atherosclerotic calcifications of the proximal left internal carotid artery with less than 50% stenosis. Patent bypass graft between the distal left common and proximal right internal carotid artery unchanged. RIGHT VERTEBRAL ARTERY: Patent right vertebral artery but small LEFT VERTEBRAL ARTERY: No occlusion, significant stenosis or dissection. Dominant left vertebral artery. NECK SOFT TISSUES: Unremarkable. --CTA HEAD: --Anterior circulation: ICAs: Atherosclerotic calcifications of the left cavernous internal carotid artery without significant stenosis. ACAs: Suboptimal visualization of the A1 segments due to streaky artifacts. ACOM: Streak artifacts from embolization coils in the region of the anterior communicating artery. MCAs: No significant stenosis at the visualized segments. --Posterior circulation: PCOMs: Patent bilaterally automatic clipper: No significant stenosis at the visualized segments. BASILAR ARTERY: No significant stenosis. VERTEBRAL ARTERIES: Patent with dominant left vertebral artery. No evidence of intracranial aneurysm or vascular malformation. CT/CTA Head AND Neck W/ Contrast IMPRESSION: 1. No intracranial great vessel stenosis. 2. Mild atherosclerotic calcification of the origin of the left internal carotid artery without significant stenosis. 3. 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 4. Patent carotid artery graft unchanged. Electronically Signed: Anselmo Muñiz MD at 11:19 EST ,
--- NOTE | 2023-11-27 09:34 | ED.VIS.STROK ---
HPI History of Present Illness Chief Complaint: Neuro S/Sx Informant: patient Onset/Context/Timing Onset: Today Context: - (Awoke with symptoms this morning..) Timing: Continuous Quality and Location: Positive for Right Face Paresthesia and Right Arm Parasthesia; Negative for Right Facial Droop, Left Facial Droop, Left Face Parasthesia, Left Arm Parasthesia, Right Leg Parasthesia, Left Leg Parasthesia, Right Arm Weakness, Left Arm Weakness, Right Leg Weakness, Left Leg Weakness, Slurred Speech, Expressive Aphasia, Receptive Aphasia or Difficulty with Ambulation Current Severity: Mild Maximum Severity: Mild Associated Symptoms Associated Symptoms: Negative for Headache, Nausea, Vomiting or Chest Pain Narrative Narrative: 68-year-old female states she just does not feel right. States that she awoke this morning with right facial numbness and right arm numbness. Pressure in her head. Denies any weakness in her arms or legs. She was evaluated yesterday for a different complaint. She has had a recent hospitalization for influenza and pneumonia. Patient was on Eliquis but took herself off of it due to abdominal discomfort while taking it. She has a significant history of carotid stenosis, CAD, A-fib along with a prior brain aneurysm clipped. She also has a history of MS. Prior similar symptoms: No Recent Illness/Hospitalization: No PFSH [facility] Medical History Angina pectoris Bilateral carotid artery stenosis Chronic pain syndrome Coronary artery disease Essential (primary) hypertension Fatty liver GERD (gastroesophageal reflux disease) Goiter History of transient ischemic attack (TIA) HLD (hyperlipidemia) Hypothyroidism Influenza A Multiple sclerosis Nonobstructive atherosclerosis of coronary artery Nonsustained paroxysmal supraventricular tachycardia Osteoarthritis Osteoporosis Peripheral vascular occlusive disease Psoriasis Psoriatic arthritis Smoker Thrombocytopenia TIA (transient ischemic attack) Home Medications cholecalciferol (vitamin D3) 125 mcg (5,000 unit) tablet 5,000 unit PO DAILY supplement 12/16/13 [History Last Taken 11/17/23] gabapentin 800 mg tablet 800 mg PO TID MS 07/16/18 [History Last Taken 11/18/23] baclofen 20 mg tablet 20 mg PO Q8H MS 08/11/21 [History Last Taken 11/18/23] levothyroxine 50 mcg tablet 50 mcg PO DAILY thyroid 08/11/21 [History Last Taken 11/18/23] oxycodone 10 mg tablet 10 mg PO Q6H PRN pain 05/24/23 [History Last Taken 11/18/23] clopidogrel 75 mg tablet 75 mg PO DAILY dose increased, pt is OUT of med, please fill #90 TABLETS 06/01/23 [Rx Last Taken 11/18/23] lisinopril 5 mg tablet 5 mg PO DAILY blood pressure #30 tabs 11/02/23 [Rx Last Taken 11/18/23] dextromethorphan-guaifenesin ER 60 mg-1,200 mg tab,extend release,12hr (Mucinex DM) 1 tab PO Q12H cough/congest 7 days #14 tabs 11/16/23 [Rx Last Taken 11/17/23] apixaban 5 mg tablet (Eliquis) 5 mg PO BID 30 days #60 tabs 11/21/23 [Rx Last Taken Unknown] metoprolol tartrate 25 mg tablet 12.5 mg (1/2 x 25 mg) PO BID 30 days #30 tabs 11/21/23 [Rx Last Taken Unknown] Allergy/AdvReac Type Severity Reaction Status Date / Time colestipol [From Colestid] Allergy Mild unknown Verified 11/26/23 12:47 pregabalin [From Lyrica] Allergy Mild Hives Verified 11/26/23 12:47 amitriptyline Allergy Rash Verified 11/26/23 12:47 temazepam [From Restoril] AdvReac Mild Nausea/Vom/ Verified 11/26/23 12:47 Diarrhea Antihistamines - Alkylamine AdvReac Nausea/Vom/ Verified 11/26/23 12:47 Diarrhea Antihistamines - Ethanolamine AdvReac Nausea/Vom/ Verified 11/26/23 12:47 Diarrhea Antihistamines - AdvReac Nausea/Vom/ Verified 11/26/23 12:47 Ethylenediamine Diarrhea Antihistamines - Piperazine AdvReac Nausea/Vom/ Verified 11/26/23 12:47 Diarrhea Antihistamines - Piperidine AdvReac Nausea/Vom/ Verified 11/26/23 12:47 Diarrhea aspirin AdvReac I'M ON Verified 11/26/23 12:47 BLOOD THINNERS codeine AdvReac Nausea Verified 11/26/23 12:47 Corticosteroids AdvReac Upset Verified 11/26/23 12:47 (Glucocorticoids) Stomach morphine AdvReac Nausea Verified 11/26/23 12:47 [id number]-[id number] Reductase AdvReac Nausea Verified 11/26/23 12:47 Inhibitor [Fxtxuub-Smp-Xtl Reductase Inhibitor] Family History Mother Cancer CAD (coronary artery disease) Brain tumor Grandfather CVA (cerebral vascular accident) Father CAD (coronary artery disease) Ruptured abdominal aortic aneurysm (AAA) Sister Brain aneurysm Surgical History Brain aneurysm Fracture of right lower leg H/O hemorrhoidectomy H/O: History of angioplasty of peripheral vessel History of angioplasty of peripheral vessel (07/11/19) History of appendectomy History of section History of cholecystectomy History of hemorrhoidectomy History of hysterectomy History of left breast biopsy History of left heart catheterization (01/25/15) History of left-sided carotid endarterectomy History of partial thyroidectomy (11/30/05) History of right-sided carotid endarterectomy S/P coil embolization of cerebral aneurysm S/P hysterectomy S/P insertion of iliac artery stent S/P thyroidectomy Stenosis of left subclavian artery Social History household members: none Smoking Status: Former smoker alcohol intake: never caffeine: Yes Type: coffee and tea ROS ROS ED ROS Narrative Denies fever, headache, nausea vomiting or diarrhea. Review of Systems ROS Unobtainable: Denies due to encephalopathy Constitutional Constitutional ED: Denies chills or fever(s) Eyes Eyes: Denies blurry vision ENT ENT ED: Denies ear pain Cardiovascular Cardiovascular: Denies chest pain Respiratory/Chest Respiratory/Chest: Denies cough or dyspnea Gastrointestinal Gastrointestinal: Denies abdominal pain Genitourinary Genitourinary ED: Denies dysuria or hematuria Musculoskeletal Musculoskeletal: Denies arthralgias Integumentary Denies abscess Neurologic Neurologic: Reports paresthesias; Denies headache(s) Psychiatric Psychiatric: Denies anxiety or depression Endocrine Endocrinology: Denies polydipsia, polyphagia or polyuria Hematologic/Lymphatic Hematologic/Lymphatic: Denies easy bleeding or easy bruising Allergic/Immunologic Allergic/Immunologic ED: Denies mouth swelling or urticaria EXAM Physical Exam Narrative Exam Narrative: Well-appearing 68-year-old female. Vital signs stable initial blood pressure is elevated 200/92 she did not take her blood pressure medication today. She is afebrile she does not look septic or toxic. She is no distress. H EENT exam dry reactive light extra motions are intact. She can open and close both eyes. She is able to wrinkle her forehead. She has no facial droop. She smiles normally. She has normal speech. Tongue is midline. Neck nontender. No lymphadenopathy. Lungs clear to auscultation bilaterally. Heart bradycardic rate in the 50s. Chest wall nontender. Abdomen soft nontender. She is moving all 4 extremities. 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 Dorsi and plantarflexion intact. She can lift either arm without any drift. Fingertip to nose within normal limits bilaterally. Rapid hand movements normal. She has weakness in both legs she can lift either 1 off the bed but they are both symmetrically weak. Back nontender. Neurologically she is awake and alert with no focal motor or sensory deficits. She has normal facial sensation. No facial droop. Normal speech. Normal strength. NIH score is 0 currently. Const Vital Signs: 11/27/23 09:01 11/27/23 09:46 11/27/23 09:32 Temperature 98.8 F 98 F Temperature Source Temporal Temporal Pulse Rate 54 L 51 L Respiratory Rate 16 14 Blood Pressure 200/92 H 196/97 H Blood Pressure Mean 128 130 Pulse Ox 92 96 96 Oxygen Delivery Method Room Air Room Air Room Air 11/27/23 09:32 Temperature 98 F Temperature Source Temporal Pulse Rate 52 L Respiratory Rate 14 Blood Pressure 196/97 H Blood Pressure Mean 130 Pulse Ox 95 Oxygen Delivery Method Room Air Positive well nourished and well developed; Negative for obese, cachectic, contractures or unkempt General Appearance ED: well developed and NAD; Negative for unkempt, cachectic or contractures Nutritional Appearance: Negative for cachectic or obese HEENT Reports moist mucous membranes; Denies dry mucous membranes Negative for atraumatic or trauma Nose: Negative for other Mouth ED: No dry mucous membranes Mouth: No dry mucous membranes Eyes PERRL and EOMs intact bilaterally General Eye ED: Negative for pale conjunctiva or scleral icterus Neck no lymphadenopathy, supple and no JVD General: Negative for tenderness Thyroid: Negative for other Chest Wall inspection of chest normal and palpation of chest normal Chest: Negative for other Resp normal respiratory effort and clear to auscultation bilaterally Effort and Inspection: Negative for retractions Auscultation: Negative for rales, rhonchi or wheezes Cardio no murmurs Rate: regular rate Rhythm: regular rhythm GI normal to inspection, nondistended, normoactive bowel sounds, soft to palpation, non-tender, non-distended and no masses Inspection: Negative for abdominal distention Auscultation: normoactive bowel sounds Palpation: Negative for tender or guarding Bladder / Kidney Exam: No other Back/Spine no CVA tenderness General Back: Negative for CVA tenderness Cervical Spine: Negative for cervical spine tenderness Thoracic Spine / Upper Back: Negative for thoracic spinal tenderness Lumbar Spine / Lower Back: Negative for lumbar spinal tenderness Extremity normal to inspection General Extremety ED: Negative for deformity, edema or tenderness General Extremity: Negative for deformity or edema Neuro oriented x3, CN's II-XII intact bilaterally and no sensory deficits noted Sensorium / Orientation: alert, oriented to person, oriented to place and oriented to time; Negative for orientation impaired, confused, lethargic or stuporous Speech: speech normal Sensory Exam: No sensory level loss detected Motor Exam: strength 5/5 throughout Psych mental status grossly normal Appearance: Negative for unkempt Attitude: No agitated Mood & Affect: Negative for depressed, anxious or tearful Skin no wounds General Skin Exam: Negative for jaundice Rashes: no rashes Trauma: Negative for abrasion or laceration NIHSS NIHSS Initial: 1a Level of Consciousness: 0 1b LOC Questions (Score 2 if aphasic/stupor): 0 1c LOC Commands (Only score 1st attempt): 0 2 Best Gaze (If aphasic, use reflexive mvmts.): 0 3 Visual: 0 4 Facial Palsy: 0 5 Motor Arm Right (UN = amputation/fusion): 0 5 Motor Arm Left: 0 6 Motor Leg Right: 0 6 Motor Leg Left: 0 7 Limb ataxia (Only + if out of proportion): 0 8 Sensory (Aphasia/stupor=0 or 1, coma=2): 0 9 Best Language: 0 10 Dysarthria (mute, coma=2, intubated=UN): 0 11 Extinction and Inattention (only scored if +): 0 Total Score: 0 MDM MDM MDM Narrative Medical decision making narrative: 68-year-old states just does not feel white with head pressure. She has no objective findings of stroke or mini stroke currently. NIH score 0. She states subjectively she feels numbness in her face and arm but she has normal sensation in both her face and arm. No droop. Normal strength. Normal speech. CAT scan and labs are being obtained. Repeat exam patient is doing well at 11:45 AM. Labs are her baseline. CAT scan shows nothing significant. Her NIH remains 0. She will be discharged home with outpatient follow-up. She is comfortable being discharged home. Again no facial droop. Normal motor strength. Normal sensation. History & Record Review Discussion w/independent historian: Patient Additional record(s) reviewed:: Prior inpatient record, Prior outpatient record, Prior ED visit and Prior labs Lab Data Attestation: I reviewed the patient's lab results. Lab results narrative: BC shows white count of 10. H&H 11.6 and 34. Platelets are 232. PT/INR 13 and 1. Electrolytes show a gap of 2 normal BUN and creatinine of 14 and 1. Glucose 106. Troponin is 10. Labs: Laboratory Results - last 24 hr 11/27/23 09:44 WBC 10.4 RBC 3.89 L Hgb 11.6 L Hct 34.2 L MCV 87.9 MCH 29.8 MCHC 33.9 D RDW Std Deviation 48.7 H RDW Coeff of David 15.3 H Plt Count 232 MPV 9.0 Immature Gran % (Auto) 0.800 Neut % (Auto) 71.7 H Lymph % (Auto) 16.8 L Saline % (Auto) 9.9 Eos % (Auto) 0.4 Baso % (Auto) 0.4 Absolute Neuts (auto) 7.5 Absolute Lymphs (auto) 1.75 Nucleated RBC % 0 PT 13.0 INR 1.0 APTT 27.8 Sodium 140 Potassium 3.7 Chloride 108 H Carbon Dioxide 30.0 Anion Gap 2 L BUN 14 Creatinine 1.09 H Estim Creat Clear Calc 41.86 Est GFR (MDRD) Af Amer 64 Est GFR (MDRD) Non-Af 53 L BUN/Creatinine Ratio 12.8 Glucose 106 Calcium 8.7 Troponin I High Sens 10 Radiography Diagnostic Testing: Clinical Impression(s) from Imaging Studies Head/Neck CTA 11/27/23 09:33 IMPRESSION: 1. No intracranial great vessel stenosis. 2. Mild atherosclerotic calcification of the origin of the left internal carotid artery without significant stenosis. 3. 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 4. Patent carotid artery graft unchanged. Electronically Signed: Anselmo Muñiz MD at 11:19 EST , Chest X-Ray 11/27/23 10:00 IMPRESSION: No radiographic evidence of acute cardiopulmonary disease. Electronically Signed: Anselmo Muñiz MD at 10:26 EST , Chest x-ray, portable interpreted by myself and the radiologist shows no acute abnormality. Single view. Normal cardiac silhouette. Normal mediastinum. Normal lungs. Rhythm Strip Rhythm Strip: Sinus bradycardia Rate: 50 Ectopy: None EKG Initial EKG: Attestation: I personally reviewed and interpreted this EKG as follows: Interpretation: No Acute Injury Pattern and Sinus Bradycardia Comments: Sinus bradycardia rate of 50 no acute signs of PA or ischemia. No significant change from November 20. Prior EKG tracings: available for review Prior: Unchanged Discharge Plan Triage Chief Complaint: Neuro S/Sx ED Provider: Ramírez Onofre Dx/Rx/DC Orders Clinical Impression: Facial paresthesia, Family history of MS (multiple sclerosis), History of atrial fibrillation Instructions: ED Paraesthesias Prescriptions: No Action gabapentin 800 mg tablet 800 mg PO TID baclofen 20 mg tablet 20 mg PO Q8H levothyroxine 50 mcg tablet 50 mcg PO DAILY Patient Comments: take 1 tablet by mouth once daily oxycodone 10 mg tablet 10 mg PO Q6H PRN Patient Comments: take 1 tab q6 PRN for pain lisinopril 5 mg tablet 5 mg PO DAILY Qty: 30 11RF Hold Instructions: Hold for 7 days. cholecalciferol (vitamin D3) 5,000 UNIT tablet 5,000 unit PO DAILY Patient Comments: supplement dextromethorphan-guaifenesin [Mucinex DM] 60-1,200 mg tablet extended release 12 hr 1 tab PO Q12H 7 Days Qty: 14 0RF metoprolol tartrate 25 mg Tablet 12.5 mg PO BID 30 Days Qty: 30 0RF Eliquis 5 mg Tablet 5 mg PO BID 30 Days Qty: 60 0RF clopidogrel 75 mg tablet 75 mg PO DAILY Qty: 90 3RF Primary Care Provider: Daron Benton Referrals: Daron Benton MD [Primary Care Provider] - As soon as possible Activity Restrictions/Additional Instructions: Labs and CAT scan today showed no significant changes in the past. No signs of acute stroke. Call and follow-up with your primary care physician if this is not improving you and he can discuss further imaging of your neck to see if you may have a pinched nerve. Disposition Disposition: Home, Self Care
[2023-11-27 09:46] VITALS: O2SAT 96
[2023-11-27 09:48] LABS: Absolute Lymphocyte Count 1.75 X10^3/uL (0.83-4.51); Absolute Neutrophil Count 7.5 X10^3/uL (2.0-7.7); Basophil# 0.04 X10^3/uL; Basophil% 0.4 % (0-1); Eosinophil# 0.04 X10^3/uL; Eosinophils% 0.4 % (0-5); Hematocrit 34.2 % (37-47); Hemoglobin 11.6 g/dL (12.0-15.0); Lymphocyte # 1.75 X10^3/ul (0.83-4.51); Lymphocyte % 16.8 % (19-41); Mean Corp Hgb Conc 33.9 g/dL (32-36); Mean Corpuscular Hgb 29.8 pg (27.0-32.0); Mean Corpuscular Volume 87.9 fL (81-99); Monocyte# 1.03 X10^3/uL; Monocyte% 9.9 % (0-10); NRBC Flagged by Analyzer 0 % (0-5); Neutrophil # 7.45 X10^3/uL (2.7-7.7); Neutrophil % 71.7 % (47-70); Platelet Count 232 K/mm3 (150-450); RBC Distribution Width CV 15.3 % (11.6-14.6); RBC Distribution Width SD 48.7 fl (35.1-43.9); Red Blood Count 3.89 M/mm3 (4.2-5.4); White Blood Count 10.4 K/mm3 (4.4-11.0)
--- NOTE | 2023-11-27 10:00 | RAD_ITS ---
INDICATION: Neuro deficit, acute, stroke suspected EXAMINATION/TECHNIQUE: X-RAY - XR Chest 1 View COMPARISON: Prior study dated: 11/26/2023. FINDINGS: LINES/DEVICES: None. LUNGS: No consolidation, edema or effusion. No pneumothorax. MEDIASTINUM AND CARDIOVASCULAR STRUCTURES: Cardiac silhouette not enlarged. Central airways and mediastinal contour are unremarkable. BONES AND SOFT TISSUES: Unremarkable. RAD/Chest 1 View IMPRESSION: No radiographic evidence of acute cardiopulmonary disease. Electronically Signed: Anselmo Muñiz MD at 10:26 EST ,
[2023-11-27 10:03] LABS: Partial Thromboplast Time 27.8 Seconds (24.1-36.2)
[2023-11-27 10:12] LABS: Anion Gap 2 (5-15); BUN 14 mg/dL (7-18); BUN/Creat Ratio 12.8 RATIO (10-20); Calcium,Total 8.7 mg/dL (8.5-10.1); Chloride 108 mmol/L (98-107); Creatinine, Serum 1.09 mg/dL (0.55-1.02); EST Glomerular Filtration Rate 53 mL/min (>60); Est Glom Filt Rate - Afr Amer 64 mL/min (>60); Estimated Creatinine Clearance 41.86 ml/min; Glucose 106 mg/dL (74-106); Potassium 3.7 mmol/L (3.5-5.1); Sodium Level 140 mmol/L (136-145); Troponin-I HS 10 pg/mL (3.0-54.0)
--- OUTSIDE RECORDS SUMMARY | 2023-11-27 10:59 | XMS RPT_ITS | CCD ---
Author Name Unknown Address [address] [place] [address] Organization [facility] Care Team Providers Care Water Pump Installer Name Role Phone LYNNE LONGORIA Unavailable UnavailZHANE [...] adverse reactions to drug (disorder) 04-28-20 04 [facility] Repository (2 sources) clopidogrel; Translations: [CLOPIDOGREL BISULFATE] Drug Allergy 12-18-19 12 [facility] Repository (8 sources) codeine; Translations: [CODEINE] Drug Allergy 04-28-20 04 [facility] Repository (2 sources) fenofibrate; Translations: [FENOFIBRATE MICRONIZED] Drug Allergy 04-27-20 11 [facility] Repository (7 sources) fentaNYL; Translations: [FENTANYL] Drug Allergy 02-19-20 12 [facility] Repository (2 sources) Hmg-Coa Reductase Inhibitors (Statins); Translations: [CZWKOFJ-FFH-MFP REDUCTASE INHIBITORS] Propensity to adverse reactions to drug (disorder) 04-27-20 11 [facility] Repository (8 sources) morphine; Translations: [MORPHINE] Drug Allergy 04-28-20 04 Vomiting [facility] Repository (7 sources) predniSONE; Translations: [PREDNISONE] Drug Allergy 12-15-19 09 [facility] Repository (7 sources) salicylic acid; Translations: [SALICYLATES] Drug Allergy 12-04-19 09 [facility] Repository (1 source) Aspirin; Translations: [aspirin] Drug Allergy Ulcer (morphologic abnormality) [facility] (1 source) Colestipol; Translations: [colestipol] Drug Allergy [facility] (1 source) HMG-CoA reductase inhibitor; Translations: [statins] Drug allergy [facility] (5 sources) Amitriptyline Drug Allergy 03-12-20 19 Rash [facility] (5 sources) clopidogrel Drug Allergy 12-18-19 12 [facility] (5 sources) Fenofibrate Drug Allergy 04-27-20 11 [facility] (5 sources) Antihistamines, Diphenhydramine-T ype Drug Intolerance 09-17-20 [facility] Medications Current Medications Medication Drug Class(es) Dates [...] Pressure Non-Invasive 66 1 TYE BARNETT MD [facility] 11-09-2022 14:07-0500 Heart rate 56 /min TYE BARNETT MD [facility] 11-09-2022 14:07-0500 Systolic Blood Pressure Non-Invasive 155 1 TYE BARNETT MD [facility] 11-09-2022 13:42-0500 Diastolic Blood Pressure Non-Invasive 69 1 TYE BARNETT MD [facility] 11-09-2022 13:42-0500 Heart rate 58 /min TYE BARNETT MD [facility] 11-09-2022 13:42-0500 Systolic Blood Pressure Non-Invasive 156 1 TYE BARNETT MD [facility] 11-09-2022 13:14-0500 Diastolic Blood Pressure Non-Invasive 86 1 TYE BARNETT MD [facility] 11-09-2022 13:14-0500 Heart rate 54 /min TYE BARNETT MD [facility] 11-09-2022 13:14-0500 Systolic Blood Pressure Non-Invasive 175 1 TYE BARNETT MD [facility] 11-09-2022 11:25-0500 Reason For Taking VItal Signs TYE BARNETT MD [facility] 11-09-2022 11:25-0500 Respiratory rate 16 /min TYE BARNETT MD [facility] 11-09-2022 11:03-0500 Respiratory rate 16 /min TYE BARNETT MD [facility] 11-09-2022 10:38-0500 Respiratory rate 16 /min TYE BARNETT MD [facility] 11-09-2022 06:29-0500 Blood Pressure Location TYE BARNETT MD [facility] 11-09-2022 06:29-0500 Body height 167.6 cm TYE BARNETT MD [facility] 11-09-2022 06:29-0500 Body temperature 97.7 [degF] TYE BARNETT MD [facility] 11-09-2022 06:29-0500 Body weight 54.8 kg TYE BARNETT MD [facility] 11-09-2022 06:29-0500 Body weight 19.51 kg/m2 TYE BARNETT MD [facility] Encounters Encounter Date Encounter Type Care Provider Facility Start: 10-26-2023 End: 10-26-2023 ambulatory TYE BARNETT Facility:A Start: 10-05-2023 End: 10-06-2023 ambulatory [facility] Start: 10-05-2023 End: 10-05-2023 Office outpatient visit 40 minutes Macey Main MD Work Phone: [facility] Procedures Date Procedure Procedure [...] DTaP/Tdap/Td Vaccines (3 - Td or Tdap) [facility] Start: 07-20-2023 COVID-19 Vaccine ( season) COVID-19 Vaccine ( season) [facility] Start: 07-20-2023 Influenza vaccination Influenza Vacc ine (#1) [facility] Start: 04-19-2021 Lipid panel Lipid Panel [facility] Start: 2014 RSV Immunization age d 60 or older (1 - 1-dose 60+ series) RSV Immunization aged 60 or older (1 - 1-dose 60+ series) [facility] Start: 08-19-2009 Pneumococcal Vaccine : 65+ Years (2 - PCV) Pneumococcal Vaccine: 65+ Years (2 - PCV) [facility] Start: 2004 Zoster Vaccines (1 of 2) Zoster Vacc clifford (1 of 2) [facility] Start: 1994 Screening for malign ant neoplasm of breast Mammogram [facility] Start: 1972 Diabetes mellitus screening Diabetes Screening [facility] Start: 1972 Hepatitis C screening Hepatitis C Sc reening [facility] Start: 1966 Depression Screening Depression Scre ening [facility] Start: 1955 Medicare Advantage A nnual Wellness Visit (AWV) Medicare Advantage Annual Wellness Visit (AWV) [facility] Start: 1955 Screening for malign ant neoplasm of colon [facility] Start: 1955 Screening for osteoporosis Bone Dens ity Scan [facility] Start: 1955 Thyroid stimulating hormone measurement TSH Level [facility] Immunizations Immunization Date Immunization Notes Care Provider Fa cility 09-16-2022 influenza virus vacc ine, unspecified formulation Macey Main MD Work Phone: [facility] Payers Date Payer Category Payer Medicare [id number] 2022 Medicare [employer] [id number] 2022-Present [address] [place] [address] Medicare HMO [id number] 1955 Unknown [id number] Social History Date Type Detail Facility Tobacco smoking status NHIS Smokes tobacc o daily [facility] History of tobacco use Cigarette Smoker [facility] Start: 04-04-2023 End: 10-05-2023 Alcohol intake Ex-drinker (finding) [facility] Start: 04-04-2023 History of Social function [facility] Start: 04-04-2023 Tobacco use panel [facility] Start: 1955 Sex Assigned At Not on file S [facility] Functional Status Date Assessment Result Facility 11-09-2022 Functional Status Ambulating in room [facility] 11-09-2022 Functional Status [facility] 11-09-2022 Functional Status Maintained [facility] Mental Status Date Assessment Result Facility 11-09-2022 Mental Status Orientation Oriented x 4 [facility] 11-09-2022 Mental Status [facility] 11-09-2022 Mental Status [facility] Clinical Notes 02-09-2021 to 10-05-2023 Macey Main MD - 10/05/2023 3:00 PM ESTTelephone Encounter - Yanely Kwon MA - 10/05/2023 12:58 PM ESTTelephone Encounter - Yanely Kwon MA - 10/05/2023 12:58 PM EST Note Date & Type Note Facility 10-05-2023 History of Present illness Narrative Images from the original note were not included. [facility] [address] [place] [address] [facility] [address] Dept: [phone] Dept Loc: [phone] Patient was seen today via Telehealth by [...] stated that they are currently in the [facility]. If the patient is a minor, [...] TSH VITAMIN B12: No results found for: [id number] No results found for: PHENYTOIN , PHENOBARB , VALPROATE , CBMZ No results found for: LEVETIRACETA , FERRITIN , CRP , DENNIS , ANCA FERRITIN: No results found for: FERRITIN @RESULTINGLABINFO@ No components found for: TOPIRA No results found for: CHRISTIANO , IMMUNOGLOBUL , OLIGOBANDS No results found for: LTV64JM , HEPCAB No results found for: CRP , ANATITER , ANCA ---- @LASTAPPOINTMENTTHISPROV@ ECG 12 lead SINUS BRADYCARDIA PROBABLE LEFT ATRIAL ABNORMALITY No previous ECG available for comparison Electronically Signed On 04-05-2023 7:42:10 EDT by Juvenal Benton Patient Name: ANGÉLICA WALLER : 1955 [facility]#: [id number] Exam Date/Time: 04/04/2023 15:32 Procedure: CT HEAD [...] volume rendered reformats were obtained using a [employer] workstation. Review of the axial source data [...] of the major intracranial arteries at the [place] of [place]. 6. No hemodynamically significant narrowing [...] Plavix and BP meds. As per Dr. Synder I spent 30 minutes caring for this patient today, reviewing labs and records, seeing the patient, documenting in the record and arranging for studies. documented in this encounter [facility] 10-05-2023 Telephone encounter Note Patient has been scheduled and records are being faxed over. [facility] 10-05-2023 Miscellaneous Notes Patient has been scheduled and records are being faxed over. Get records from [facility]. OK to add her on at 3 PM as a real or a virtual visit Name of caller: Angélica Contact phone number: [phone] Relationship to Patient: patient Provider: DR Main Practice: [facility] Chief Complaint/Reason for Call: pt was at [facility] yesterday for an MS attack she is asking for IV steroids order infusion. She was started at the hospital and will need additional steroids. Please advise when order placed. Best time of day caller can be reached: AM Patient advised that office/PCP has 24-48 business hours to return their call: Yes documented in this encounter [facility] 10-05-2023 Telephone encounter Note Get records from [facility]. OK to add her on at 3 PM as a real or a virtual visit [facility] 10-05-2023 Telephone encounter Note Name of caller: Angélica Contact phone number: [phone] Relationship to Patient: patient Provider: DR Main Practice: [facility] Chief Complaint/Reason for Call: pt was at [facility] yesterday for an MS attack she is asking for IV steroids order infusion. She was started at the hospital and will need additional steroids. Please advise when order placed. Best time of day caller can be reached: AM Patient advised that office/PCP has 24-48 business hours to return their call: Yes [facility] 06-15-2023 Telephone encounter Note Medication name: baclofen (Lioresal) 20 MG tablet [[id number]] Order Details Dose: 20 mg Route: Oral [...] Original Order: baclofen (Lioresal) 20 MG tablet [[id number]] Providers Ordering and Authorizing Provider: Macey Main MD NEGRA #: [id number] Ordering User: Macey Main MD Pharmacy [id number] [address] NEGRA #: -- Date of last office visit: 04/04/23 Date of next office visit: None Date of last refill: (see medication tab): 10/05/22 Updated/Validated preferred pharmacy: Yes Patient instructed to contact the pharmacy prior to picking up the medication: Yes [facility] 06-15-2023 Miscellaneous Notes Medication name: baclofen (Lioresal) 20 MG tablet [[id number]] Order Details Dose: 20 mg Route: Oral [...] Original Order: baclofen (Lioresal) 20 MG tablet [[id number]] Providers Ordering and Authorizing Provider: Macey Main MD NEGRA #: [id number] Ordering User: Macey Main MD Pharmacy [id number] [place] [id number] [address] NEGRA #: -- Date of last office visit: 04/04/23 Date of next office visit: None Date of last refill: (see medication tab): 10/05/22 Updated/Validated preferred pharmacy: Yes Patient instructed to contact the pharmacy prior to picking up the medication: Yes documented in this encounter [facility] 06-04-2023 Telephone encounter Note Rx renewed [facility] 06-04-2023 Miscellaneous Notes Rx renewed Please advise. [...] the medication: Yes documented in this encounter [facility] 06-04-2023 Telephone encounter Note Please advise. [facility] 06-04-2023 Telephone encounter Note Medication name: gabapentin [...] prior to picking up the medication: Yes [facility] 11-09-2022 Hospital Discharge instructions Patient Education 11/09/2022 [...] and water are not available, use hand toy packer. ?Change your dressing as told by your [...] the contrast dye from your body. Take dkon-qut-meneeyj and prescription medicines only as told by [...] 05/24/2006 Document Revised: 10/18/2018 Document Reviewed: 10/10/2017 [employer] Patient Education 2020 [employer] 11/09/2022 12:48:21 Moderate Conscious Sedation, Adult, [...] until you are awake and alert. Take vlwh-bda-yyjcrau and prescription medicines only as told by [...] 08/26/2014 Document Revised: 10/18/2018 Document Reviewed: 02/24/2017 [employer] Patient Education 2020 [employer]. Follow Up Care 10/27/2022 15:58:56 With:TYE BARNETT MD, [facility], Surgery, Vascular Surgeons Address: [facility] [address] [place] [id number] When: Unknown Comments:Follow-up as scheduled [facility] 11-09-2022 Summary of episode note Discharge Instructions Thank you for allowing [facility] to assist you with your healthcare needs. The following is important discharge information regarding your hospital visit. What to do next Follow Up Appointments Follow Up with TYE BARNETT MD, [facility], Surgery, Vascular Surgeons When Why: Follow-up as scheduled Where: [facility] [address] [facility] [address] [place] [address] The Following Activity and Diet [...] and water are not available, use hand toy packer. ? Change your dressing as told by [...] the contrast dye from your body. Take wglz-lme-wyanvkm and prescription medicines only as told by [...] 05/24/2006 Document Revised: 10/18/2018 Document Reviewed: 10/10/2017 [employer] Patient Education 2020 [employer] Moderate Conscious [...] until you are awake and alert. Take kzmu-hoe-xgqgjqz and prescription medicines only as told by [...] 08/26/2014 Document Revised: 10/18/2018 Document Reviewed: 02/24/2017 [employer] Patient Education 2020 [employer]. Additional Information VACCINATE! IT SAVES LIVES! Members of the community who have not yet received the COVID-19 vaccine and would like to receive it can visit one of [facility] vaccine clinics. There are many vaccine clinic locations within the [facility]. For locations and available times, please visit [email or web address].[place].gov/. It is important to note that some COVID mobile vaccine clinics are held outdoors and may be canceled in rainy or stormy conditions. To learn more about pediatric vaccinations (ages 5-11), we invite you to visit the [facility] webpage. https://www.akronThe [employer].org/pa ges/7591-Okmle-Nebwepljqlk-Freque gufb-Aprih-Wmkzjxvad.html To learn more about the COVID-19 vaccine, we invite you to visit the [facility] website for a list of frequently asked questions. [email or web address]/assets/Sebastian uw-ucn-Cqvpovua/kqosb-Zjiltmw-Cga quently_Asked-Questions.pdf [employer] Patient Portal Access Instructions: Stay connected with your healthcare team and access your personal medical information anytime with the [employer] Patient Portal.If you would like a full copy of your medical records, please contact the [facility] Medical Records Department, Sunday through Sunday between 8a.m. and 4:30p.m. Please follow the directions below to access the portal: 1.Access the email account you provided upon registration to the hospital.2.Look for an invitation email from [facility].3.Open the email and access the invitation link: Accept Invitation to [employer]4.Fill in the required duarte to create your account. Sign into www.[employer] with your username and password that you [...] you will allow to register on the [employer] Patient Portal for access to your information. You can also access the [employer] Patient Portal on the [employer] jennifer. Simply click on Health Records under Health Data and then click on the [employer] logo. HOW TO SAFELY DISPOSE OF PRESCRIPTION [...] Call your local pharmacy or go to [email or web address]/2V2Xg4q to find one close to you.3.Make use of household items: Use cat litter or old coffee grounds to dispose medications if other options are not available. Mix your drugs with these household products, seal them in an airtight container and throw it into the garbage. Call [facility]: [phone] to be sure your drugs can be [...] aware that I should contact my doctor. Patient/Rn Manager Signature: Date/Time: Relationship to Patient: ____ Witness Name/Signature: Date/Time: [facility] 11-09-2022 Note ORIGINAL Images acquired, not reported on this accession number. [facility] 11-09-2022 Note ORIGINAL Images acquired, not reported on this accession number. [facility] 04-12-2021 Note HNO ID: [id number] Author: TOMMY Flores) Service: ? Author Type: Manager Of Corporate Type: Progress Notes Filed: 04/12/2021 2:14 PM [...] DATE: April 12, 2021 TIME: 2:13 PM [facility] 02-09-2021 Note HNO ID: [id number] Author: Alexander Regalado Service: ? Author Type: [...] wound at high risk for bone exposure. [facility] Evaluation + Plan note No data available for this section [facility] documented in this encounter [facility]* Diagnosis Multiple sclerosis (HCC) Multiple sclerosis documented in this encounter [facility] Diagnosis Multiple sclerosis (HCC)- Primary Multiple sclerosis Cerebrovascular disease, unspecified Primary hypertension Unspecified essential hypertension documented in this encounter [facility] Health Summary Purpose Family History No [...] DATE CREATED AUTHOR AUTHOR'S ORGANIZ ATION 05/13/2018 [facility] DATE CREATED AUTHOR AUTHOR'S ORGANIZ ATION 12/13/2021 [facility] DATE CREATED AUTHOR AUTHOR'S ORGANIZ ATION 10/10/2023 [facility] DATE CREATED AUTHOR AUTHOR'S ORGANIZ ATION 11/15/2023 [facility] Care Team (unrecognized sect ion and content) Care Team Related Persons Name: BHAVIK HONG Name: LOLA HONG Reason for Visit (unrecogniz ed section and content) Reason Onset Date Comments Med Refill 06/04/2023 Reason Onset Date Comments Med Refill 06/15/2023 Reason Onset Date Comments Orders 10/05/2023 Reason Comments Hospital Follow-up Care Teams (unrecognized sec tion and content) Water Pump Installer Relationship Specialty Start Date End Date Jacinda Benton [address] [facility] [address] [place] [phone] PCP - General 06/23/20 Water Pump Installer Relationship Specialty Start Date End Date Jacinda Benton [address] [facility] [address] [place] [phone] PCP - General 06/23/20 Water Pump Installer Relationship Specialty Start Date End Date Jacinda Benton [address] [place] [address] [place] [phone] PCP - General 06/23/20 FOR RECORDS PERTAINING [...] BE BASED ON THE PRIMARY CLINICAL RECORDS. [facility]. provides no warranty or guarantee of the accuracy or completeness of information in this document.
[2023-11-27] MEDS: Lisinopril 5 MG Tablet PO (11:11)
== END 2023-11-27 12:34 | disposition home or self-care (01) ==
PROVIDERS: Emergency Provider Emergency Medicine; PCP Family Medicine; Visit Provider Emergency Medicine
DX: R20.2 Paresthesia of skin (principal); I48.91 Unspecified atrial fibrillation; I25.10 Atherosclerotic heart disease of native coronary artery without angina pectoris; Z87.891 Personal history of nicotine dependence; R29.898 Other symptoms and signs involving the musculoskeletal system; Z82.69 Family history of other diseases of the musculoskeletal system and connective tissue; E78.5 Hyperlipidemia, unspecified; I10 Essential (primary) hypertension
CPT/HCPCS: 70496; 70498; 71045; 80048; 84484; 85025; 85610; 85730; 93005; 99285; Q9967; A4216

== ENCOUNTER 2023-12-02 06:28 | Inpatient (IN) | payer MEDICARE, MEDICAID, SELFPAY ==
[2023-12-02] VITALS (11 sets, daily range): BP systolic 101–207; BP diastolic 48–93; PULSE 46–72; RESP 15–22; TEMP 36.1–36.7; O2SAT 92–100; BMI 20.5
[2023-12-02 07:04] LABS: Absolute Lymphocyte Count 1.89 X10^3/uL (0.83-4.51); Absolute Neutrophil Count 3.8 X10^3/uL (2.0-7.7); Basophil# 0.05 X10^3/uL; Basophil% 0.8 % (0-1); Eosinophil# 0.06 X10^3/uL; Eosinophils% 0.9 % (0-5); Hematocrit 37.5 % (37-47); Hemoglobin 12.5 g/dL (12.0-15.0); Lymphocyte # 1.89 X10^3/ul (0.83-4.51); Lymphocyte % 28.5 % (19-41); Mean Corp Hgb Conc 33.3 g/dL (32-36); Mean Corpuscular Hgb 29.7 pg (27.0-32.0); Mean Corpuscular Volume 89.1 fL (81-99); Mean Platelet Vol. 9.1 fl (6.2-12.0); Monocyte# 0.84 X10^3/uL; Monocyte% 12.7 % (0-10); NRBC Flagged by Analyzer 0 % (0-5); Neutrophil # 3.75 X10^3/uL (2.7-7.7); Neutrophil % 56.3 % (47-70); Platelet Count 281 K/mm3 (150-450); RBC Distribution Width CV 15.5 % (11.6-14.6); RBC Distribution Width SD 50.4 fl (35.1-43.9); Red Blood Count 4.21 M/mm3 (4.2-5.4); White Blood Count 6.6 K/mm3 (4.4-11.0)
--- OUTSIDE RECORDS SUMMARY | 2023-12-02 07:10 | XMS RPT_ITS | CCD ---
Author Name Unknown Address [address] [place] [address] Organization [facility] Care Team Providers Care Wood Turning Lathe Operator Name Role Phone LYNNE LONGORIA Unavailable UnavailZHANE Mancera Unavailable Unavailable LYNNE LONGORIA Unavailable Unavailable ZHANE DE Unavailable Unavailable ZHANE DE Unavailable Unavailable Jacinda Benton Primary Care Provider [phone] MACEY MAIN Attending Unavailable JACIDNA BENTON Primary Care Unavailable JACINDA BENTON Primary Care Unavailable MACEY MAIN Attending Unavailable CRISSY SCHMITZ Attending Unavailable JACINDA BENTON Primary Care Unavailable TYE BARNETT Attending Unavailable Allergies Allergy Classification Reported Allergen(s) Allergy Type Date of Onset Reaction(s) Facility (3 sources) Antihistamines; Translations: [ANTIHISTAMINES] Propensity to adverse reactions to drug (disorder) 04-28-20 04 [facility] Repository (2 sources) clopidogrel; Translations: [CLOPIDOGREL BISULFATE] Drug Allergy 12-18-19 12 [facility] Repository (8 sources) codeine; Translations: [CODEINE] Drug Allergy 04-28-20 04 [facility] Repository (2 sources) fenofibrate; Translations: [FENOFIBRATE MICRONIZED] Drug Allergy 04-27-20 11 [facility] Repository (7 sources) fentaNYL; Translations: [FENTANYL] Drug Allergy 02-19-20 12 [facility] Repository (2 sources) Hmg-Coa Reductase Inhibitors (Statins); Translations: [OPUWYSP-ETI-TYK REDUCTASE INHIBITORS] Propensity to adverse reactions to drug (disorder) 04-27-20 11 [facility] Repository (8 sources) morphine; Translations: [MORPHINE] Drug Allergy 04-28-20 04 Vomiting [facility] Repository (7 sources) predniSONE; Translations: [PREDNISONE] Drug Allergy 12-15-19 09 [facility] Repository (7 sources) salicylic acid; Translations: [SALICYLATES] Drug Allergy 12-04-19 09 [facility] Repository (1 source) Aspirin; Translations: [aspirin] Drug Allergy Ulcer (morphologic abnormality) [facility] (1 source) Colestipol; Translations: [colestipol] Drug Allergy [facility] (1 source) HMG-CoA reductase inhibitor; Translations: [statins] Drug allergy [facility] (5 sources) Amitriptyline Drug Allergy 03-12-20 19 Rash [facility] (5 sources) clopidogrel Drug Allergy 12-18-19 12 [facility] (5 sources) Fenofibrate Drug Allergy 04-27-20 11 [facility] (5 sources) Antihistamines, Diphenhydramine-T ype Drug Intolerance 09-17-20 [facility] Medications Current Medications Medication Drug Class(es) [...] Pressure Non-Invasive 69 1 TYE BARNETT MD [facility] [...] BARNETT Facility:A Start: 10-05-2023 End: 10-06-2023 ambulatory [facility] Start: 10-05-2023 End: 10-05-2023 Office outpatient visit 40 minutes Macey Main MD Work Phone: [facility] Procedures Date Procedure Procedure Detail [...] DTaP/Tdap/Td Vaccines (3 - Td or Tdap) [facility] Start: 07-20-2023 COVID-19 Vaccine ( season) COVID-19 Vaccine ( season) [facility] Start: 07-20-2023 Influenza vaccination Influenza Vacc ine (#1) [facility] Start: 04-19-2021 Lipid panel Lipid Panel [facility] Start: 2014 RSV Immunization age d 60 or older (1 - 1-dose 60+ series) RSV Immunization aged 60 or older (1 - 1-dose 60+ series) [facility] Start: 08-19-2009 Pneumococcal Vaccine : 65+ Years (2 - PCV) Pneumococcal Vaccine: 65+ Years (2 - PCV) [facility] Start: 2004 Zoster Vaccines (1 of 2) Zoster Vacc clifford (1 of 2) [facility] Start: 1994 Screening for malign ant neoplasm of breast Mammogram [facility] Start: 1972 Diabetes mellitus screening Diabetes Screening [facility] Start: 1972 Hepatitis C screening Hepatitis C Sc reening [facility] Start: 1966 Depression Screening Depression Scre ening [facility] Start: 1954 Medicare Advantage A nnual Wellness Visit (AWV) Medicare Advantage Annual Wellness Visit (AWV) [facility] Start: 1954 Screening for malign ant neoplasm of colon [facility] Start: 1954 Screening for osteoporosis Bone Dens ity Scan [facility] Start: 1954 Thyroid stimulating hormone measurement TSH Level [facility] Immunizations Immunization Date Immunization Notes Care Provider Fa cility 09-16-2022 influenza virus vacc ine, unspecified formulation Macey Main MD Work Phone: [facility] Payers Date Payer Category Payer Medicare [id number] 2022 Medicare [employer] [id number] 2022-Present [address] [place] [address] Medicare HMO [id number] 1955 Unknown [id number] Social History Date Type Detail Facility Tobacco smoking status NHIS Smokes tobacc o daily [facility] History of tobacco use Cigarette Smoker [facility] Start: 04-04-2023 End: 10-05-2023 Alcohol intake Ex-drinker (finding) [facility] Start: 04-04-2023 History of Social function [facility] Start: 04-04-2023 Tobacco use panel [facility] Start: 1955 Sex Assigned At Not on file [facility] Functional Status Date Assessment Result Facility 11-09-2022 Functional Status Ambulating in room [facility] 11-09-2022 Functional Status [facility] 11-09-2022 Functional Status Maintained [facility] Mental Status Date Assessment Result Facility 11-09-2022 Mental Status Orientation Oriented x [facility] 11-09-2022 Mental Status [facility] 11-09-2022 Mental Status [facility] Clinical Notes 02-09-2021 to 10-05-2023 Macey Main MD - 10/05/2023 3:00 PM ESTTelephone Encounter - Yanely Kwon MA - 10/05/2023 12:58 PM ESTTelephone Encounter - Yanely Kwon MA - 10/05/2023 12:58 PM EST Note Date & Type Note Facility 10-05-2023 History of Present illness Narrative Images from the original note were not included. [facility] [address] [place] [address] [facility] [address] Dept: [phone] Dept Loc: [phone] Patient was seen today via Telehealth by [...] stated that they are currently in the [facility]. If the patient is a [...] TSH VITAMIN B12: No results found for: BANPCXFD57 No results found for: PHENYTOIN , PHENOBARB , VALPROATE , CBMZ No results found for: LEVETIRACETA , FERRITIN , CRP , DENNIS , ANCA FERRITIN: No results found for: FERRITIN @RESULTINGLABINFO@ No components found for: TOPIRA No results found for: CHRISTIANO , IMMUNOGLOBUL , OLIGOBANDS No results found for: JEA34IK , HEPCAB No results found for: CRP , ANATITER , ANCA ---- @LASTAPPOINTMENTTHISPROV@ ECG 12 lead SINUS BRADYCARDIA PROBABLE LEFT ATRIAL ABNORMALITY No previous ECG available for comparison Electronically Signed On 04-05-2023 7:42:10 EDT by Juvenal Benton Patient Name: ANGÉLICA WALLER : 1955 [facility]#: [id number] Exam Date/Time: 04/04/2023 15:32 Procedure: CT HEAD [...] volume rendered reformats were obtained using a Gnodal workstation. Review of the axial source data [...] of the major intracranial arteries at the [place]. 6. No hemodynamically significant narrowing [...] arranging for studies. documented in this encounter [facility] 10-05-2023 Telephone encounter Note Patient has been scheduled and records are being faxed over. [facility] 10-05-2023 Miscellaneous Notes Patient has been scheduled and records are being faxed over. Get records from [facility]. OK to add her on at 3 PM as a real or a virtual visit Name of caller: Angélica Contact phone number: [phone] Relationship to Patient: patient Provider: DR Main Practice: [facility] Chief Complaint/Reason for Call: pt was at [facility] yesterday for an MS attack she is asking for IV steroids order infusion. She was started at the hospital and will need additional steroids. Please advise when order placed. Best time of day caller can be reached: AM Patient advised that office/PCP has 24-48 business hours to return their call: Yes documented in this encounter [facility] 10-05-2023 Telephone encounter Note Get records from [facility]. OK to add her on at 3 PM as a real or a virtual visit [facility] 10-05-2023 Telephone encounter Note Name of caller: Angélica Contact phone number: [phone] Relationship to Patient: patient Provider: DR Main Practice: [facility] Chief Complaint/Reason for Call: pt was at [facility] yesterday for an MS attack she is asking for IV steroids order infusion. She was started at the hospital and will need additional steroids. Please advise when order placed. Best time of day caller can be reached: AM Patient advised that office/PCP has 24-48 business hours to return their call: Yes [facility] 06-15-2023 Telephone encounter Note Medication name: baclofen (Lioresal) 20 MG tablet [[id number]] Order Details Dose: 20 mg Route: Oral [...] Original Order: baclofen (Lioresal) 20 MG tablet [[id number]] Providers Ordering and Authorizing Provider: Macey Mian MD NEGRA #: [id number] Ordering User: Macey Main MD Pharmacy [facility] #[id number] [address] NEGRA #: -- Date of last office visit: 04/04/23 Date of next office visit: None Date of last refill: (see medication tab): 10/05/22 Updated/Validated preferred pharmacy: Yes Patient instructed to contact the pharmacy prior to picking up the medication: Yes [facility] 06-15-2023 Miscellaneous Notes Medication name: baclofen (Lioresal) 20 MG tablet [[id number]] Order Details Dose: 20 mg Route: Oral [...] Original Order: baclofen (Lioresal) 20 MG tablet [[id number]] Providers Ordering and Authorizing Provider: Macey Main MD NEGRA #: [id number] Ordering User: Macey Main MD [facility]acy [id number] [place] [id number] [address] NEGRA #: -- Date of last office visit: 04/04/23 Date of next office visit: None Date of last refill: (see medication tab): 10/05/22 Updated/Validated preferred pharmacy: Yes Patient instructed to contact the pharmacy prior to picking up the medication: Yes documented in this encounter [facility] 06-04-2023 Telephone encounter Note Rx renewed [facility] 06-04-2023 Miscellaneous Notes Rx renewed Please [...] the medication: Yes documented in this encounter [facility] 06-04-2023 Telephone encounter Note Please advise. [facility] 06-04-2023 Telephone encounter Note Medication name: [...] prior to picking up the medication: Yes [facility] 11-09-2022 Hospital Discharge instructions Patient Education [...] and water are not available, use hand production supervisor trainee. ?Change your dressing as told by your [...] the contrast dye from your body. Take grxi-ovz-zroqskj and prescription medicines only as told by [...] 05/24/2006 Document Revised: 10/18/2018 Document Reviewed: 10/10/2017 [employer] Patient Education 2020 [employer] 11/09/2022 12:48:21 Moderate Conscious Sedation, Adult, [...] until you are awake and alert. Take stig-zqx-uevubsh and prescription medicines only as told by [...] 08/26/2014 Document Revised: 10/18/2018 Document Reviewed: 02/24/2017 [employer] Patient Education 2020 [employer]. Follow Up Care 10/27/2022 15:58:56 With:TYE BARNETT MD, [facility], Surgery, Vascular Surgeons Address: [facility] [address] [place] [address] When: Unknown Comments:Follow-up as scheduled [facility] 11-09-2022 Summary of episode note Discharge Instructions Thank you for allowing [facility] to assist you with your healthcare needs. The following is important discharge information regarding your hospital visit. What to do next Follow Up Appointments Follow Up with TYE BARNETT MD, [facility], Surgery, Vascular Surgeons When Why: Follow-up as scheduled Where: [facility] [address] [facility] [address] [place] [address] The Following Activity and Diet [...] and water are not available, use hand production supervisor trainee. ? Change your dressing as told by [...] the contrast dye from your body. Take vhvi-xcq-lfsgjwj and prescription medicines only as told by [...] 05/24/2006 Document Revised: 10/18/2018 Document Reviewed: 10/10/2017 [employer] Patient Education 2020 [employer] Moderate Conscious [...] until you are awake and alert. Take xgis-kyd-aijbwwx and prescription medicines only as told by [...] 08/26/2014 Document Revised: 10/18/2018 Document Reviewed: 02/24/2017 [employer] Patient Education 2020 [employer]. Additional Information VACCINATE! IT SAVES LIVES! Members of the community who have not yet received the COVID-19 vaccine and would like to receive it can visit one of [facility] vaccine clinics. There are many vaccine clinic locations within the [facility]. For locations and available times, please visit [email or web address].gov/. It is important to note that some COVID mobile vaccine clinics are held outdoors and may be canceled in rainy or stormy conditions. To learn more about pediatric vaccinations (ages 5-11), we invite you to visit the [facility] webpage. [email or web address]://www.akronYi Chang [employer] Sai [email or web address]/pa [email or web address]-Tbrro-Msedtujpcla-Freque igkz-Jjlxg-Ogxzunxev.html To learn more about the COVID-19 vaccine, we invite you to visit the [facility] website for a list of frequently asked questions. [email or web address]-[email or web address] quently_[email or web address]-Questions.pdf [facility] Patient Portal Access Instructions: Stay connected with your healthcare team and access your personal medical information anytime with the [facility] Patient Portal.If you would like a full [...] access the invitation link: Accept Invitation to [facility]4.Fill in the required duarte to create your account. Sign into www.[employer] with your username and password that you [...] you will allow to register on the [facility] Patient Portal for access to your information. You can also access the [facility] Patient Portal on the [employer] jennifer. Simply click on Health Records under Health Data and then click on the [employer] logo. HOW TO SAFELY DISPOSE OF PRESCRIPTION [...] Call your local pharmacy or go to [email or web address] [email or web address] to find one close to you.3.Make use of household items: Use cat litter or old coffee grounds to dispose medications if other options are not available. Mix your drugs with these household products, seal them in an airtight container and throw it into the garbage. Call [facility]: [phone] to be sure your drugs can be [...] aware that I should contact my doctor. Patient/Special Procedures Nurse Signature: Date/Time: Relationship to Patient: ____ Witness Name/Signature: Date/Time: [facility] 11-09-2022 Note ORIGINAL Images acquired, not reported on this accession number. [facility] 11-09-2022 Note ORIGINAL Images acquired, not reported on this accession number. [facility] 04-12-2021 Note HNO ID: [id number] Author: TOMMY Flores) Service: ? Author Type: Mammal Keeper Type: Progress Notes Filed: 04/12/2021 2:14 PM [...] DATE: April 12, 2021 TIME: 2:13 PM [facility] 02-09-2021 Note HNO ID: [id number] Author: Alexander Regalado Service: ? Author Type: [...] wound at high risk for bone exposure. [facility] Evaluation + Plan note No data available for this section [facility] documented [facility]* Diagnosis Multiple sclerosis (HCC) [facility] sclerosis [facility] Diagnosis Multiple sclerosis (HCC)- Primary Multiple sclerosis Cerebrovascular disease, unspecified Primary hypertension Unspecified essential hypertension documented in this encounter [facility] Summary Purpose Family History No Family [...] DATE CREATED AUTHOR AUTHOR'S ORGANIZ ATION 05/13/2018 [facility] DATE CREATED AUTHOR AUTHOR'S ORGANIZ ATION 12/13/2021 [facility] DATE CREATED AUTHOR AUTHOR'S ORGANIZ ATION 10/10/2023 [facility] DATE CREATED AUTHOR AUTHOR'S ORGANIZ ATION 11/15/2023 [facility] ([place]) Care Team (unrecognized sect ion and content) Care Team Related Persons Name: BHAVIK HONG Name: LOLA HONG Reason for Visit (unrecogniz ed section and content) Reason Onset Date Comments Med Refill 06/04/2023 Reason Onset Date Comments Med Refill 06/15/2023 Reason Onset Date Comments Orders 10/05/2023 Reason Comments Hospital Follow-up Care Teams (unrecognized sec tion and content) Wood Turning Lathe Operator Relationship Specialty Start Date End Date Jacinda Benton [address] [facility] [address] [place] [phone] PCP - General 06/23/20 Wood Turning Lathe Operator Relationship Specialty Start Date End Date Jacinda Benton [address] [facility] [address] [place] [phone] PCP - General 06/23/20 Wood Turning Lathe Operator Relationship Specialty Start Date End Date Jacinda Benton [address] [place] [phone] PCP - General 06/23/20 FOR RECORDS PERTAINING [...] BE BASED ON THE PRIMARY CLINICAL RECORDS. [facility] So [facility]. provides no warranty or guarantee of the accuracy or completeness of information in this document.
--- NOTE | 2023-12-02 07:28 | RAD_ITS ---
EXAM: XR CHEST, 1 VIEW CLINICAL INDICATION: cough, weakness TECHNIQUE: Frontal view of the chest. COMPARISON: XR Chest dated 11/27/2023 FINDINGS: LUNGS AND PLEURAL SPACES: Minimal infiltrate or atelectasis right lung base. HEART: Normal heart size. MEDIASTINUM: No mediastinal or hilar mass. BONES/JOINTS: Stable dextroscoliosis of the thoracic spine. RAD/Chest 1 View (Portable) IMPRESSION: Minimal infiltrate or atelectasis of the right lower lobe. Electronically Signed: Chago Mcintyre MD at 9:06 EST ,
--- NOTE | 2023-12-02 07:28 | CT_ITS ---
EXAM: CT HEAD WITHOUT INTRAVENOUS CONTRAST CLINICAL INDICATION: WEAKNESS, VERTIGO TECHNIQUE: Multiple axial images were obtained of the head without intravenous contrast. This CT exam was performed using one or more of the following dose reduction techniques: automated exposure control, adjustment of the mA and/or kV according to patient size, and/or use of iterative reconstruction technique. COMPARISON: No relevant prior studies available. FINDINGS: BRAIN AND EXTRA-AXIAL SPACES: Normal. No intra- or extra-axial hemorrhage. No acute infarct. No intracranial mass or mass effect. There is preservation of the patel/white matter interface. Posterior fossa structures are unremarkable. Ventricles are appropriate for age. No hydrocephalus. Basal cisterns are patent. BONES/JOINTS: No suspicious lytic or blastic abnormality. 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 SINUSES: No acute sinusitis. MASTOID AIR CELLS: Normal. Clear. CT/Brain/Head without Contrast IMPRESSION: No acute intracranial abnormality. No interval change. Electronically Signed: Chago Mcintyre MD at 8:45 EST ,
--- NOTE | 2023-12-02 07:29 | EKG12_ITS ---
Test Reason : WEAKNESS Blood Pressure : / mmHG Vent. Rate : 055 BPM Atrial Rate : 055 BPM P-R Int : 140 ms QRS Dur : 084 ms QT Int : 492 ms P-R-T Axes : 060 040 062 degrees QTc Int : 470 ms Sinus bradycardia with sinus arrhythmia Possible Left atrial enlargement Minimal voltage criteria for LVH, may be normal variant ( Sokolow-Pantoja ) Borderline ECG Confirmed by OTILIA FOX, MAYI ([id number]), marketing editor SELAM BARRETO ([id number]) on 12/03/2023 9:36:51 AM Referred By: Confirmed By:MAYI BINGHAM MD
[2023-12-02 08:08] LABS: CPK Total, Creatine Kinase 26 U/L (26-192)
[2023-12-02] MEDS: Lisinopril 5 MG Tablet PO (08:11)
[2023-12-02] MEDS: Metoprolol Tartrate 25 MG Tablet 12.5 MG PO (08:11)
--- NOTE | 2023-12-02 08:15 | EX.ED.DYSGE1 ---
HPI History of Present Illness Chief Complaint: Dizziness Informant: patient Narrative Narrative: Patient is 68-year-old female with history of multiple sclerosis, psoriatic arthritis, coronary artery disease, atrial fibrillation (not currently on any anticoagulation secondary to GI upset), bilateral carotid artery stenosis with bilateral CEA as well as brain aneurysm status post coiling in 2013 presenting with weakness and dizziness. Patient is a pretty poor historian and is not forthcoming with what brings her in. It seems like she has been dizzy since yesterday but when asked whether it is more of a lightheaded sensation or room pain sensation she does not answer and just tells me she feels numb all over. She reported to triage nurse that she had headache however she currently denies any acute headache. She denies any focal weakness. She does live home alone. She think she is having an MS flare. She notes that she was diagnosed with pneumonia/influenza a week ago and continues to have a cough. She denies any recent falls, fevers, vomiting or change in bowel habits. Denies any urinary symptoms. Her neurologist is in [place]. [facility] Medical History Angina pectoris Bilateral carotid artery stenosis Chronic pain syndrome Coronary artery disease Essential (primary) hypertension Fatty liver GERD (gastroesophageal reflux disease) Goiter History of transient ischemic attack (TIA) HLD (hyperlipidemia) Hypothyroidism Influenza A Multiple sclerosis Nonobstructive atherosclerosis of coronary artery Nonsustained paroxysmal supraventricular tachycardia Osteoarthritis Osteoporosis Peripheral vascular occlusive disease Psoriasis Psoriatic arthritis Smoker Thrombocytopenia TIA (transient ischemic attack) Home Medications cholecalciferol (vitamin D3) 125 mcg (5,000 unit) tablet 5,000 unit PO DAILY supplement 12/16/13 [History Last Taken 12/01/23] gabapentin 800 mg tablet 800 mg PO TID MS 07/16/18 [History Last Taken 12/01/23] baclofen 20 mg tablet 20 mg PO Q8H MS 08/11/21 [History Last Taken 12/01/23] levothyroxine 50 mcg tablet 50 mcg PO DAILY thyroid 08/11/21 [History Last Taken 12/01/23] oxycodone 10 mg tablet 10 mg PO Q6H PRN pain 05/24/23 [History Last Taken 12/01/23] clopidogrel 75 mg tablet 75 mg PO DAILY dose increased, pt is OUT of med, please fill #90 TABLETS 06/01/23 [Rx Last Taken 11/18/23] lisinopril 5 mg tablet 5 mg PO DAILY blood pressure #30 tabs 11/02/23 [Rx Last Taken 12/01/23] dextromethorphan-guaifenesin ER 60 mg-1,200 mg tab,extend release,12hr (Mucinex DM) 1 tab PO Q12H cough/congest 7 days #14 tabs 11/16/23 [Rx Last Taken 12/01/23] apixaban 5 mg tablet (Eliquis) 5 mg PO BID 30 days #60 tabs 11/21/23 [Rx Last Taken 12/01/23] metoprolol tartrate 25 mg tablet 12.5 mg (1/2 x 25 mg) PO BID 30 days #30 tabs 11/21/23 [Rx Last Taken 12/01/23] Allergy/AdvReac Type Severity Reaction Status Date / Time colestipol [From Colestid] Allergy Mild unknown Verified 11/26/23 12:47 pregabalin [From Lyrica] Allergy Mild Hives Verified 11/26/23 12:47 amitriptyline Allergy Rash Verified 11/26/23 12:47 temazepam [From Restoril] AdvReac Mild Nausea/Vom/ Verified 11/26/23 12:47 Diarrhea Antihistamines - Alkylamine AdvReac Nausea/Vom/ Verified 11/26/23 12:47 Diarrhea Antihistamines - Ethanolamine AdvReac Nausea/Vom/ Verified 11/26/23 12:47 Diarrhea Antihistamines - AdvReac Nausea/Vom/ Verified 11/26/23 12:47 Ethylenediamine Diarrhea Antihistamines - Piperazine AdvReac Nausea/Vom/ Verified 11/26/23 12:47 Diarrhea Antihistamines - Piperidine AdvReac Nausea/Vom/ Verified 11/26/23 12:47 Diarrhea aspirin AdvReac I'M ON Verified 11/26/23 12:47 BLOOD THINNERS codeine AdvReac Nausea Verified 11/26/23 12:47 Corticosteroids AdvReac Upset Verified 11/26/23 12:47 (Glucocorticoids) Stomach morphine AdvReac Nausea Verified 11/26/23 12:47 Rhcmsxy-TFT-TkO Reductase AdvReac Nausea Verified 11/26/23 12:47 Inhibitor [Bpuapbv-Wtx-Cse Reductase Inhibitor] Family History Mother Cancer CAD (coronary artery disease) Brain tumor Grandfather CVA (cerebral vascular accident) Father CAD (coronary artery disease) Ruptured abdominal aortic aneurysm (AAA) Sister Brain aneurysm Surgical History Brain aneurysm Fracture of right lower leg H/O hemorrhoidectomy H/O: History of angioplasty of peripheral vessel History of angioplasty of peripheral vessel (07/11/19) History of appendectomy History of section History of cholecystectomy History of hemorrhoidectomy History of hysterectomy History of left breast biopsy History of left heart catheterization (01/25/15) History of left-sided carotid endarterectomy History of partial thyroidectomy (11/30/05) History of right-sided carotid endarterectomy S/P coil embolization of cerebral aneurysm S/P hysterectomy S/P insertion of iliac artery stent S/P thyroidectomy Stenosis of left subclavian artery Social History household members: none Smoking Status: Current every day smoker tobacco type: cigarettes alcohol intake: never caffeine: Yes Type: coffee and tea ROS ROS ED Constitutional Constitutional ED: Denies chills or fever(s) Eyes Eyes: Denies change in vision Cardiovascular Cardiovascular: Denies chest pain Respiratory/Chest Respiratory/Chest: Reports cough Gastrointestinal Gastrointestinal: Denies abdominal pain, nausea or vomiting Musculoskeletal Musculoskeletal: Reports arthralgias, back pain, myalgias and other Details: chronic pains Integumentary Denies rash Neurologic Neurologic: Reports weakness; Denies headache(s) or paresthesias Hematologic/Lymphatic Hematologic/Lymphatic: Denies easy bleeding or easy bruising EXAM Physical Exam Const Vital Signs: 12/02/23 06:30 12/02/23 06:33 12/02/23 06:40 Temperature 97.4 F L 97.6 F L Temperature Source Oral Oral Pulse Rate 63 66 Respiratory Rate 22 H 16 Respiratory Effort Normal Non-Labored Respiratory Pattern Normal Blood Pressure 201/91 H Blood Pressure Mean 127 Pulse Ox 97 93 Oxygen Delivery Method Room Air Room Air 12/02/23 08:13 12/02/23 08:53 12/02/23 10:30 Temperature Temperature Source Pulse Rate 72 53 L 51 L Respiratory Rate 21 H 22 H 19 H Respiratory Effort Respiratory Pattern Blood Pressure 156/74 H 207/82 H 183/93 H Blood Pressure Mean 101 123 123 Pulse Ox 92 97 96 Oxygen Delivery Method Room Air Room Air Room Air Positive well nourished and well developed General Appearance ED: well developed and NAD HEENT Reports moist mucous membranes Eyes PERRL Eyes Narrative: Patient has nystagmus in all directions of gaze is bilateral Neck supple and no JVD Chest Wall inspection of chest normal Resp normal respiratory effort and clear to auscultation bilaterally Resp Narrative: Wet cough intermittently Cardio regular rate, regular rhythm and no murmurs GI normal to inspection, nondistended, normoactive bowel sounds and non-tender Extremity normal to inspection Neuro Neuro Narrative: Somnolent and delay in answering questions but then will answer questions appropriately intermittently. Not sure if this is neurologic versus personality Generally weak. Will not lift either leg off the bed. Is able to do [id number] but has bilateral ataxia with it. Too weak to sit up in bed to track for truncal ataxia. Sensation intact to light touch bilaterally. No facial droop appreciated. Sensorium / Orientation: alert Psych Mood & Affect: depressed Skin no rashes or lesions noted and no wounds MDM MDM MDM Narrative Medical decision making narrative: Patient is evaluated for vague dizziness which is not clear if this is more of a lightheadedness versus vertigo however she does have nystagmus on exam. The nystagmus is bidirectional as well as up and down so concerning for central process. She Is generally weak and has questionable ataxia her extremities however she still able to touch my finger her nose with [id number]. Her symptoms started at least 24 hours ago so she is not a TNK candidate and did not call a stroke alert. Will perform metabolic workup including a CT of the brain. 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 I do not think this needs to be repeated at this time. Hypertensive in the ER with a blood pressure of 201/91. Is given her morning medications (metoprolol and lisinopril). Improvement of her blood pressure in the ER. Workup is largely negative. No signs of acute urinary tract infection, acute dehydration, rhabdomyolysis, symptomatic anemia or acute infection. CT of the brain does not show any acute process. Chest x-ray shows minimal infiltrate or atelectasis of the right lower lobe. By myself as well as radiology. Given her lack of fever, hypoxia or leukocytosis will defer treatment at this time And treat more as atelectasis versus true pneumonia. Given the patient's neurologic symptoms with her history of MS will admit for further evaluation, potential MRI/neurologic consult for possible MS flare. In addition patient has debility and lives home alone so I do not want her to have a fall or further injury especially as she is so weak here. Discussed that she might require placement. Case discussed with the main physician, Dr. Mckeon. Lab Data Attestation: I reviewed the patient's lab results. Labs: Laboratory Results - last 24 hr 12/02/23 12/02/23 06:40 10:30 WBC 6.6 RBC 4.21 Hgb 12.5 Hct 37.5 MCV 89.1 MCH 29.7 MCHC 33.3 RDW Std Deviation 50.4 H RDW Coeff of David 15.5 H Plt Count 281 MPV 9.1 Immature Gran % (Auto) 0.800 Neut % (Auto) 56.3 Lymph % (Auto) 28.5 [place] % (Auto) 12.7 H Eos % (Auto) 0.9 Baso % (Auto) 0.8 Absolute Neuts (auto) 3.8 Absolute Lymphs (auto) 1.89 Nucleated RBC % 0 Sodium 140 Potassium 3.7 Chloride 107 Carbon Dioxide 25.0 Anion Gap 8 BUN 16 Creatinine 1.13 H Estim Creat Clear Calc 41.54 Est GFR (MDRD) Af Amer 61 Est GFR (MDRD) Non-Af 51 L BUN/Creatinine Ratio 14.2 Glucose 109 H Calcium 8.8 Total Creatine Kinase 26 Urine Color Yellow Urine Clarity Clear Urine pH 6.5 Ur Specific [place] 1.015 Urine Protein 15 H Urine Glucose (UA) Normal Urine Ketones Negative Urine Occult Blood Negative Urine Nitrite Negative Urine Bilirubin Negative Urine Urobilinogen Normal Ur Leukocyte Esterase 25 H Urine RBC 0 SEEN Urine WBC 0 SEEN Ur Squamous Epith Cells 0 SEEN Urine Bacteria 0 SEEN Urine Mucus 0 SEEN Radiography Diagnostic Testing: Clinical Impression(s) from Imaging Studies Brain CT 12/02/23 07:28 IMPRESSION: No acute intracranial abnormality. No interval change. Electronically Signed: Chago Mcintyre MD at 8:45 EST , Chest X-Ray 12/02/23 07:28 IMPRESSION: Minimal infiltrate or atelectasis of the right lower lobe. Electronically Signed: Chago Mcintyre MD at 9:06 EST , Rhythm Strip Rhythm Strip: Sinus Rhythm Rate: 55 Ectopy: None EKG Initial EKG: Attestation: I personally reviewed and interpreted this EKG as follows: Interpretation: Sinus Bradycardia Comments: Sinus bradycardia at a rate of 55 bpm with sinus arrhythmia Possible left atrial enlargement with minimal voltage criteria for LVH (likely normal variant) Compared to prior EKG on 11/27/2023, no significant changes Management Discussion w/another healthcare provider: Hospitalist Discharge Plan Dx/Rx/DC Orders Clinical Impression: Dizziness, Weakness, Multiple sclerosis Disposition Disposition: Acute Care Hospital [facility] Discharge Date/Time: 12/02/23 12:36
[2023-12-02 08:56] LABS: Anion Gap 8 (5-15); BUN 16 mg/dL (7-18); BUN/Creat Ratio 14.2 RATIO (10-20); Calcium,Total 8.8 mg/dL (8.5-10.1); Chloride 107 mmol/L (98-107); Creatinine, Serum 1.13 mg/dL (0.55-1.02); EST Glomerular Filtration Rate 51 mL/min (>60); Est Glom Filt Rate - Afr Amer 61 mL/min (>60); Estimated Creatinine Clearance 41.54 ml/min; Glucose 109 mg/dL (74-106); Potassium 3.7 mmol/L (3.5-5.1); Sodium Level 140 mmol/L (136-145)
[2023-12-02] MEDS: Meclizine 12.5 MG Tablet PO (09:19)
[2023-12-02 10:32] LABS: Bacteria 0 SEEN /hpf (None Seen); Mucous, Urine 0 SEEN /hpf (<or=2+); Red Blood Cells-Urine 0 SEEN /hpf (0-5); Squamous Epithelial Cells - UA 0 SEEN /hpf (5-10); White Blood Cells 0 SEEN /hpf (0-5)
[2023-12-02 10:36] LABS: Color, Urine Yellow (Yellow); Glucose, Dipstick Normal (Normal); Ketone-Dipstick Negative (Negative); Leukocyte Esterase-Dipstick 25 /ul (Negative); Nitrite-Dipstick Negative (Negative); Occult Blood-Urine Negative /ul (Negative); Protein-Dipstick 15 mg/dl (Negative); Specific Gravity, Urine 1.015 (1.002-1.030); Urine Bilirubin Dipstick Negative (Negative); Urine Clarity Clear (Clear); Urine Urobilinogen Normal (Normal); Urine pH 6.5 (5.0 - 8.0)
[2023-12-02] MEDS: Ondansetron 4 MG/2 ML Vial IV (11:35)
--- NOTE | 2023-12-02 11:40 | PCM.HP.STD ---
HPI - General General Date of Admission: 12/02/23 Date of Service: 12/02/23 Chief Complaint: Generalized weakness HPI Narrative ADY WALLER, is a 68 F with past medical history is again for multiple sclerosis, recent hospitalization for acute influenza A infection who presented with generalized weakness. Per patient symptoms have been going on for couple of days. Patient however denied any subjective fever no chills. Presented to the emergency department initial workup including head CT came back unremarkable urinalysis however did demonstrate positive leukocyte esterase. Admitted to a monitored bed for further management [facility] Medical History Angina pectoris Bilateral carotid artery stenosis Chronic pain syndrome Coronary artery disease Essential (primary) hypertension Fatty liver GERD (gastroesophageal reflux disease) Goiter History of transient ischemic attack (TIA) HLD (hyperlipidemia) Hypothyroidism Influenza A Multiple sclerosis Nonobstructive atherosclerosis of coronary artery Nonsustained paroxysmal supraventricular tachycardia Osteoarthritis Osteoporosis Peripheral vascular occlusive disease Psoriasis Psoriatic arthritis Smoker Thrombocytopenia TIA (transient ischemic attack) Home Medications cholecalciferol (vitamin D3) 125 mcg (5,000 unit) tablet 5,000 unit PO DAILY supplement 12/16/13 [History Last Taken 12/01/23] gabapentin 800 mg tablet 800 mg PO TID MS 07/16/18 [History Last Taken 12/01/23] baclofen 20 mg tablet 20 mg PO Q8H MS 08/11/21 [History Last Taken 12/01/23] levothyroxine 50 mcg tablet 50 mcg PO DAILY thyroid 08/11/21 [History Last Taken 12/01/23] oxycodone 10 mg tablet 10 mg PO Q6H PRN pain 05/24/23 [History Last Taken 12/01/23] clopidogrel 75 mg tablet 75 mg PO DAILY dose increased, pt is OUT of med, please fill #90 TABLETS 06/01/23 [Rx Last Taken 11/18/23] lisinopril 5 mg tablet 5 mg PO DAILY blood pressure #30 tabs 11/02/23 [Rx Last Taken 12/01/23] dextromethorphan-guaifenesin ER 60 mg-1,200 mg tab,extend release,12hr (Mucinex DM) 1 tab PO Q12H cough/congest 7 days #14 tabs 11/16/23 [Rx Last Taken 12/01/23] apixaban 5 mg tablet (Eliquis) 5 mg PO BID 30 days #60 tabs 11/21/23 [Rx Last Taken 12/01/23] metoprolol tartrate 25 mg tablet 12.5 mg (1/2 x 25 mg) PO BID 30 days #30 tabs 11/21/23 [Rx Last Taken 12/01/23] Allergy/AdvReac Type Severity Reaction Status Date / Time colestipol [From Colestid] Allergy Mild unknown Verified 11/26/23 12:47 pregabalin [From Lyrica] Allergy Mild Hives Verified 11/26/23 12:47 amitriptyline Allergy Rash Verified 11/26/23 12:47 temazepam [From Restoril] AdvReac Mild Nausea/Vom/ Verified 11/26/23 12:47 Diarrhea Antihistamines - Alkylamine AdvReac Nausea/Vom/ Verified 11/26/23 12:47 Diarrhea Antihistamines - Ethanolamine AdvReac Nausea/Vom/ Verified 11/26/23 12:47 Diarrhea Antihistamines - AdvReac Nausea/Vom/ Verified 11/26/23 12:47 Ethylenediamine Diarrhea Antihistamines - Piperazine AdvReac Nausea/Vom/ Verified 11/26/23 12:47 Diarrhea Antihistamines - Piperidine AdvReac Nausea/Vom/ Verified 11/26/23 12:47 Diarrhea aspirin AdvReac I'M ON Verified 11/26/23 12:47 BLOOD THINNERS codeine AdvReac Nausea Verified 11/26/23 12:47 Corticosteroids AdvReac Upset Verified 11/26/23 12:47 (Glucocorticoids) Stomach morphine AdvReac Nausea Verified 11/26/23 12:47 Uvjxwla-LMO-MbO Reductase AdvReac Nausea Verified 11/26/23 12:47 Inhibitor [Pfwnyip-Bjw-Epg Reductase Inhibitor] Family History Mother Cancer CAD (coronary artery disease) Brain tumor Grandfather CVA (cerebral vascular accident) Father CAD (coronary artery disease) Ruptured abdominal aortic aneurysm (AAA) Sister Brain aneurysm Surgical History Brain aneurysm Fracture of right lower leg H/O hemorrhoidectomy H/O: History of angioplasty of peripheral vessel History of angioplasty of peripheral vessel (07/11/19) History of appendectomy History of section History of cholecystectomy History of hemorrhoidectomy History of hysterectomy History of left breast biopsy History of left heart catheterization (01/25/15) History of left-sided carotid endarterectomy History of partial thyroidectomy (11/30/05) History of right-sided carotid endarterectomy S/P coil embolization of cerebral aneurysm S/P hysterectomy S/P insertion of iliac artery stent S/P thyroidectomy Stenosis of left subclavian artery Social History household members: none Smoking Status: Current every day smoker tobacco type: cigarettes alcohol intake: never caffeine: Yes Type: coffee and tea ROS ROS Narrative GENERAL: denies fever, chills, night sweats, weight loss, anorexia HEENT: denies headache, sinus congestion, or drainage, dysphagia RESPIRATORY: denies cough, sputum production, shortness of breath, dyspnea on exertion CARDIAC: denies chest pain, palpitations, orthopnea, PND GASTROINTESTINAL: denies abdominal pain, nausea, vomiting, melena, GENITOURINARY: denies dysuria, urgency, frequency, heamaturia EXTREMITY: denies swelling MUSCULOSKELETAL: denies current joint pain or tenderness NEUROLOGIC: denies focal numbness, weakness, tingling HEMATOLOGIC: denies easy bruising and/or hemorrhage INTEGUMENT: denies rashes PSYCHIATRIC: denies suicidal or homicidal ideation Vital Signs Vital Signs Vital Signs: 12/02/23 06:30 12/02/23 06:33 12/02/23 06:40 Temperature 97.4 F L 97.6 F L Temperature Source Oral Oral Pulse Rate 63 66 Respiratory Rate 22 H 16 Respiratory Effort Normal Non-Labored Respiratory Pattern Normal Blood Pressure 201/91 H Blood Pressure Mean 127 Pulse Ox 97 93 Oxygen Delivery Method Room Air Room Air 12/02/23 08:13 12/02/23 08:53 12/02/23 10:30 Temperature Temperature Source Pulse Rate 72 53 L 51 L Respiratory Rate 21 H 22 H 19 H Respiratory Effort Respiratory Pattern Blood Pressure 156/74 H 207/82 H 183/93 H Blood Pressure Mean 101 123 123 Pulse Ox 92 97 96 Oxygen Delivery Method Room Air Room Air Room Air Weight Weight: 56 kg Body Mass Index (BMI) 20.5 Physical Exam Narrative GENERAL: cooperative HEENT: Atraumatic; normocephalic EYES; Anicteric, Normal Conjunctiva NECK; supple, normal thyroid, RESPIRATORY: Diminished to auscultation CARDIOVASCULAR: Regular S1 S2, GI: soft, normoactive bowel sounds, : No Renal angle tenderness; EXTREMITIES: No edema, no clubbing, MUSCULOSKELETAL: no muscle wasting NEURO: Awake; no lateralizing signs. SKIN: No Rash PSYCH; Flat affect Results Lab / Micro Data 12/02/23 06:40 12/02/23 06:40 Labs: Laboratory Results - last 24 hr 12/02/23 06:40: WBC 6.6, RBC 4.21, Hgb 12.5, Hct 37.5, MCV 89.1, MCH 29.7, MCHC 33.3, RDW Std Deviation 50.4 H, RDW Coeff of David 15.5 H, Plt Count 281, MPV 9.1, Immature Gran % (Auto) 0.800, Neut % (Auto) 56.3, Lymph % (Auto) 28.5, [place] % (Auto) 12.7 H, Eos % (Auto) 0.9, Baso % (Auto) 0.8, Absolute Neuts (auto) 3.8, Absolute Lymphs (auto) 1.89, Nucleated RBC % 0, Sodium 140, Potassium 3.7, Chloride 107, Carbon Dioxide 25.0, Anion Gap 8, BUN 16, Creatinine 1.13 H, Estim Creat Clear Calc 41.54, Est GFR (MDRD) Af Amer 61, Est GFR (MDRD) Non-Af 51 L, BUN/Creatinine Ratio 14.2, Glucose 109 H, Calcium 8.8, Total Creatine Kinase 26 12/02/23 10:30: Urine Color Yellow, Urine Clarity Clear, Urine pH 6.5, Ur Specific [place] 1.015, Urine Protein 15 H, Urine Glucose (UA) Normal, Urine Ketones Negative, Urine Occult Blood Negative, Urine Nitrite Negative, Urine Bilirubin Negative, Urine Urobilinogen Normal, Ur Leukocyte Esterase 25 H, Urine RBC 0 SEEN, Urine WBC 0 SEEN, Ur Squamous Epith Cells 0 SEEN, Urine Bacteria 0 SEEN, Urine Mucus 0 SEEN Micro: Microbiology 12/02/23 07:37 Mucosa - Nose SARS-CoV-2, Influenza & RSV (PCR) - Final Rhythm Strip Rhythm Strip: Sinus Rhythm Rate: 55 Ectopy: None Imagaing Radiology Impression Brain CT 12/02/23 07:28 IMPRESSION: No acute intracranial abnormality. No interval change. Electronically Signed: Chago Mcintyre MD at 8:45 EST , Chest X-Ray 12/02/23 07:28 IMPRESSION: Minimal infiltrate or atelectasis of the right lower lobe. Electronically Signed: Chago Mcintyre MD at 9:06 EST , Assessment & Plan Assessment/Plan (1) Weakness: PLAN: Plan Patient is a 68-year-old lady admitted with progressive generalized weakness 1. Progressive generalized weakness ? Differential diagnoses include patient possible cystitis versus MS flareup. Plan is to treat the underlying suspected cystitis and if no improvement patient to be initiated on steroids consult subsequently placed to teleneurology 2. Acute cystitis ? Patient had positive leukocyte esterase started on ceftriaxone cultures sent 3. Recent -diagnosis of acute influenza A infection chest x-ray obtained on admission demonstrated some infiltrate patient has been started on ceftriaxone 4. Multiple sclerosis ? Patient is on baclofen for symptom management 5. Paroxysmal A-fib ? Rate controlled on systemic anticoagulation with apixaban continue 6. Essential hypertension ? Patient blood pressure control not optimal due to continuing home meds added hydralazine as needed. Blood pressure greater than 160 7. Tobacco dependence - Counseled on cessation, offered nicotine patch for tobacco cravings 8. Hypothyroidism - Patient is on levothyroxine home dose continued 9. Peripheral arterial disease ? With history of iliac stent As well as bilateral carotid endarterectomy. Patient is on antiplatelet therapy 10. Psoriatic arthritis ? Patient not on any DMARDs, will continue with pain meds as needed DVT prophylaxis ? Patient is on apixaban Time spent in the patient's overall evaluation,decision-making process, review of diagnostic data, adjustment of management, discussion with other providers, nursing nursing and ancillary staff involved in patient's care documentation, 75 Minutes Advance planning; did discuss with the patient and family regarding advanced directives as well as CODE STATUS. Did explain the various scenarios involved ( FULL CODE, DNR CCA, DNR CCA with no intubation, and DNR CC and what each meant) patient elected to to remain full code with CPR and intubation if warranted. Order was placed. Time spent on discussion 18 minutes. Charges/Coding Visit Charges Inpatient E&M: 28783 Init Hosp L3 Procedures Hospitalists Procedures: 78706 Advncd Care Plan 30 Min
--- OUTSIDE RECORDS SUMMARY | 2023-12-02 11:49 | XMS RPT_ITS | CCD ---
Author Name Unknown Address [address] [place] [address] Organization [facility] Care Team Providers Care [employer] Pcb Draftsman Name Role Phone LYNNE LONGORIA Unavailable UnavailZHANE Mancera Unavailable Unavailable LYNNE LONGORIA Unavailable Unavailable ZHANE DE Unavailable Unavailable ZHANE DE Unavailable Unavailable Jacinda Benton Primary Care Provider [phone] MACEY MAIN Attending Unavailable JACINDA BENTON Primary Care Unavailable JACINDA BENTON Primary Care Unavailable MACEY MAIN Attending Unavailable CRISSY SCHMITZ Attending Unavailable JACINDA BENTON Primary Care Unavailable TYE BARNETT Attending Unavailable Allergies Allergy Classification Reported Allergen(s) Allergy Type Date of Onset Reaction(s) Facility (3 sources) Antihistamines; Translations: [ANTIHISTAMINES] Propensity to adverse reactions to drug (disorder) 04-28-[address] [facility] Repository (2 sources) clopidogrel; Translations: [CLOPIDOGREL BISULFATE] Drug Allergy 12-18-19 12 [facility] Repository (8 sources) codeine; Translations: [CODEINE] Drug Allergy 04-28-[address] [facility] Repository (2 sources) fenofibrate; Translations: [FENOFIBRATE MICRONIZED] Drug Allergy 04-27-20 11 [facility] Repository (7 sources) fentaNYL; Translations: [FENTANYL] Drug Allergy 02-19-20 12 [facility] Repository (2 sources) Hmg-Coa Reductase Inhibitors (Statins); Translations: [ZPIBKXL-KLH-GCV REDUCTASE INHIBITORS] Propensity to adverse reactions to drug (disorder) 04-27-20 11 [facility] Repository (8 sources) morphine; Translations: [MORPHINE] Drug Allergy 04-28-[address] [facility] Repository (7 sources) predniSONE; Translations: [PREDNISONE] Drug Allergy 12-15-[address] [facility] Repository (7 sources) salicylic acid; Translations: [SALICYLATES] Drug Allergy 12-04-[address] [facility] Repository (1 source) Aspirin; Translations: [aspirin] Drug Allergy Ulcer (morphologic abnormality) [facility] (1 source) Colestipol; Translations: [colestipol] Drug Allergy [facility] (1 source) HMG-CoA reductase inhibitor; Translations: [statins] Drug allergy [facility] (5 sources) Amitriptyline Drug Allergy 03-12-20 19 Rash [facility] (5 sources) clopidogrel Drug Allergy 12-18-19 12 [facility] (5 sources) Fenofibrate Drug Allergy 04-27-20 11 [facility] (5 sources) Antihistamines, Diphenhydramine-T ype Drug Intolerance 09-17-20 [facility] Medications Current Medications Medication Drug [...] BARNETT Facility:A Start: 10-05-2023 End: 10-06-2023 ambulatory [facility] Start: 10-05-2023 End: 10-05-2023 Office outpatient visit 40 minutes Macey Main MD Work Phone: [facility] Procedures Date Procedure Procedure [...] DTaP/Tdap/Td Vaccines (3 - Td or Tdap) [facility] Start: 07-20-2023 COVID-19 Vaccine ( season) COVID-19 Vaccine ( season) [facility] Start: 07-20-2023 Influenza vaccination Influenza Vacc ine (#1) [facility] Start: 04-19-2021 Lipid panel Lipid Panel [facility] Start: 2014 RSV Immunization age d 60 or older (1 - 1-dose 60+ series) RSV Immunization aged 60 or older (1 - 1-dose 60+ series) [facility] Start: 08-19-2009 Pneumococcal Vaccine : 65+ Years (2 - PCV) Pneumococcal Vaccine: 65+ Years (2 - PCV) [facility] Start: 2004 Zoster Vaccines (1 of 2) Zoster Vacc clifford (1 of 2) [facility] Start: 1994 Screening for malign ant neoplasm of breast Mammogram [facility] Start: 1972 Diabetes mellitus screening Diabetes Screening [facility] Start: 1972 Hepatitis C screening Hepatitis C Sc reening [facility] Start: 1966 Depression Screening Depression Scre ening [facility] Start: 1954 Medicare Advantage A nnual Wellness Visit (AWV) Medicare Advantage Annual Wellness Visit (AWV) [facility] Start: 1954 Screening for malign ant neoplasm of colon [facility] Start: 1954 Screening for osteoporosis Bone Dens ity Scan [facility] Start: 1954 Thyroid stimulating hormone measurement TSH Level [facility] Immunizations Immunization Date Immunization Notes Care Provider Fa cility 09-16-2022 influenza virus vacc ine, unspecified formulation Macey Main MD Work Phone: [facility] Payers Date Payer Category Payer Medicare [id number] 2022 Medicare [employer] [id number] 2022-Present [address] [place] [address] Medicare HMO [id number] 1955 Unknown [id number] Social History Date Type Detail Facility Tobacco smoking status NHIS Smokes tobacc o daily [facility] History of tobacco use Cigarette Smoker S [facility] Start: 04-04-2023 End: 10-05-2023 Alcohol intake Ex-drinker (finding) [facility] Start: 04-04-2023 History of Social function [facility] Start: 04-04-2023 Tobacco use panel [facility] Start: 1955 Sex Assigned At Not on file S [facility] Functional Status Date Assessment Result Facility 11-09-2022 Functional Status Ambulating in room [facility] 11-09-2022 Functional Status [facility] 11-09-2022 Functional Status Maintained [facility] Mental Status Date Assessment Result Facility 11-09-2022 Mental Status Orientation Oriented x 4 [facility] 11-09-2022 Mental Status [facility] 11-09-2022 Mental Status [facility] Clinical Notes 02-09-2021 to 10-05-2023 Macey Main MD - 10/05/2023 3:00 PM ESTTelephone Encounter - Yanely Kwon MA - 10/05/2023 12:58 PM ESTTelephone Encounter - Yanely Kwon MA - 10/05/2023 12:58 PM EST Note Date & Type Note Facility 10-05-2023 History of Present illness Narrative Images from the original note were not included. [facility] [address] [place] [address] [facility] [address] Dept: [phone] Dept Loc: [phone] Patient was seen today via Telehealth by [...] stated that they are currently in the [facility]. If the patient is a minor, [...] TSH VITAMIN B12: No results found for: [id number] No results found for: PHENYTOIN , PHENOBARB , VALPROATE , CBMZ No results found for: LEVETIRACETA , FERRITIN , CRP , DENNIS , ANCA FERRITIN: No results found for: FERRITIN @RESULTINGLABINFO@ No components found for: TOPIRA No results found for: CHRISTIANO , IMMUNOGLOBUL , OLIGOBANDS No results found for: AST80VJ , HEPCAB No results found for: CRP , ANATITER , ANCA ---- @LASTAPPOINTMENTTHISPROV@ ECG 12 lead SINUS BRADYCARDIA PROBABLE LEFT ATRIAL ABNORMALITY No previous ECG available for comparison Electronically Signed On 04-05-2023 7:42:10 EDT by Juvenal Benton Patient Name: ANGÉLICA WALLER : 1955 [facility]#: [id number] Exam Date/Time: 04/04/2023 15:32 Procedure: CT HEAD [...] volume rendered reformats were obtained using a [employer] workstation. Review of the axial source data [...] of the major intracranial arteries at the [place]. 6. No hemodynamically significant narrowing [...] arranging for studies. documented in this encounter [facility] 10-05-2023 Telephone encounter Note Patient has been scheduled and records are being faxed over. [facility] 10-05-2023 Miscellaneous Notes Patient has been scheduled and records are being faxed over. Get records from [facility]. OK to add her on at 3 PM as a real or a virtual visit Name of caller: Angélica Contact phone number: [phone] Relationship to Patient: patient Provider: DR Main Practice: [facility] Chief Complaint/Reason for Call: [facility] she is asking for IV steroids order infusion. She was started at the hospital and will need additional steroids. Please advise when order placed. Best time of day caller can be reached: AM Patient advised that office/PCP has 24-48 business hours to return their call: Yes documented in this encounter [facility] 10-05-2023 Telephone encounter Note Get records from [facility]. OK to add her on at 3 PM as a real or a virtual visit [facility] 10-05-2023 Telephone encounter Note Name of caller: Angélica Contact phone number: [phone] Relationship to Patient: patient Provider: DR Main Practice: [facility] Chief Complaint/Reason for Call: [facility] she is asking for IV steroids order infusion. She was started at the hospital and will need additional steroids. Please advise when order placed. Best time of day caller can be reached: AM Patient advised that office/PCP has 24-48 business hours to return their call: Yes [facility] 06-15-2023 Telephone encounter Note Medication name: baclofen (Lioresal) 20 MG tablet [[id number]] Order Details Dose: 20 mg Route: Oral [...] Original Order: baclofen (Lioresal) 20 MG tablet [[id number]] Providers Ordering and Authorizing Provider: Macey Main MD NEGRA #: [id number] Ordering User: Macey Main MD Pharmacy [id number] [address] NEGRA #: -- Date of last office visit: 04/04/23 Date of next office visit: None Date of last refill: (see medication tab): 10/05/22 Updated/Validated preferred pharmacy: Yes Patient instructed to contact the pharmacy prior to picking up the medication: Yes [facility] 06-15-2023 Miscellaneous Notes Medication name: baclofen (Lioresal) 20 MG tablet [[id number]] Order Details Dose: 20 mg Route: Oral [...] Original Order: baclofen (Lioresal) 20 MG tablet [[id number]] Providers Ordering and Authorizing Provider: Macey Main MD NEGRA #: [id number] Ordering User: Macey Main MD [facility]acy [id number] [place] [address] [address] NEGRA #: -- Date of last office visit: 04/04/23 Date of next office visit: None Date of last refill: (see medication tab): 10/05/22 Updated/Validated preferred pharmacy: Yes Patient instructed to contact the pharmacy prior to picking up the medication: Yes documented in this encounter [facility] 06-04-2023 Telephone encounter Note Rx renewed [facility] 06-04-2023 Miscellaneous Notes Rx renewed [...] the medication: Yes documented in this encounter [facility] 06-04-2023 Telephone encounter Note Please advise. [facility] 06-04-2023 Telephone encounter Note Medication [...] prior to picking up the medication: Yes [facility] 11-09-2022 Hospital Discharge instructions Patient [...] and water are not available, use hand varnish thinner. ?Change your dressing as told by your [...] the contrast dye from your body. Take mauy-aik-kkzgayf and prescription medicines only as told by [...] 05/24/2006 Document Revised: 10/18/2018 Document Reviewed: 10/10/2017 [employer] Patient Education 2020 [employer] 11/09/2022 12:48:21 Moderate Conscious Sedation, Adult, [...] until you are awake and alert. Take srmb-tgo-hclommh and prescription medicines only as told by [...] 08/26/2014 Document Revised: 10/18/2018 Document Reviewed: 02/24/2017 [employer] Patient Education 2020 Path.To. Follow Up Care 10/27/2022 15:58:56 With:TYE BARNETT MD, [facility], Surgery, Vascular Surgeons Address: [facility] [address] [place] [id number] When: Unknown Comments:Follow-up as scheduled [facility] 11-09-2022 Summary of episode note Discharge Instructions Thank you for allowing [facility] to assist you with your healthcare needs. The following is important discharge information regarding your hospital visit. What to do next Follow Up Appointments Follow Up with TYE BARNETT MD, [facility], Surgery, Vascular Surgeons When Why: Follow-up as scheduled Where: [facility] [address] [facility] [address] [place] [address] The Following Activity and Diet [...] and water are not available, use hand varnish thinner. ? Change your dressing as told by [...] the contrast dye from your body. Take bsjd-hcd-tkprlrs and prescription medicines only as told by [...] 05/24/2006 Document Revised: 10/18/2018 Document Reviewed: 10/10/2017 [employer] Patient Education 2020 [employer] Inc. Moderate Conscious [...] until you are awake and alert. Take rgzi-njs-eotjqjv and prescription medicines only as told by [...] 08/26/2014 Document Revised: 10/18/2018 Document Reviewed: 02/24/2017 [employer] Patient Education 2020 Path.To. Additional Information VACCINATE! IT SAVES LIVES! Members of the community who have not yet received the COVID-19 vaccine and would like to receive it can visit one of [facility] vaccine clinics. There are many vaccine clinic locations within the [facility]. For locations and available times, please visit [email or web address] It is important to note that some COVID mobile vaccine clinics are held outdoors and may be canceled in rainy or stormy conditions. To learn more about pediatric vaccinations (ages 5-11), we invite you to visit the [facility] webpage. [email or web address] To learn more about the COVID-19 vaccine, we invite you to visit the [facility] website for a list of frequently asked questions. [email or web address] [email or web address] [facility] Patient Portal Access Instructions: Stay connected with your healthcare team and access your personal medical information anytime with the [facility] Patient Portal.If you would like a full [...] access the invitation link: Accept Invitation to [facility].Fill in the required duarte to create your account. Sign into [email or web address] with your username and password that you [...] you will allow to register on the [facility] Patient Portal for access to your information. You can also access the [facility] Patient Portal on the [employer] jennifer. Simply click on Health Records under Health Data and then click on the [employer] logo. HOW TO SAFELY DISPOSE OF PRESCRIPTION [...] Call your local pharmacy or go to [email or web address] to find one close to you.3.Make use of household items: Use cat litter or old coffee grounds to dispose medications if other options are not available. Mix your drugs with these household products, seal them in an airtight container and throw it into the garbage. Call [facility]: [phone] to be sure your drugs can be [...] aware that I should contact my doctor. Patient/Transit Manager Signature: Date/Time: Relationship to Patient: ____ Witness Name/Signature: Date/Time: [facility] 11-09-2022 Note ORIGINAL Images acquired, not reported on this accession number. [facility] 11-09-2022 Note ORIGINAL Images acquired, not reported on this accession number. [facility] 04-12-2021 Note HNO ID: [id number] Author: TOMMY Flores) Service: ? 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 Author Type: [...] wound at high risk for bone exposure. [facility] Evaluation + Plan note No data available for this section [facility] documented in this encounter [facility]* Diagnosis Multiple sclerosis (HCC) Multiple sclerosis [facility] Diagnosis Multiple sclerosis (HCC)- Primary Multiple [...] DATE CREATED AUTHOR AUTHOR'S ORGANIZ ATION 05/13/2018 [facility] DATE CREATED AUTHOR AUTHOR'S ORGANIZ ATION 12/13/2021 [facility] DATE CREATED AUTHOR AUTHOR'S ORGANIZ ATION 10/10/2023 [facility] DATE CREATED AUTHOR AUTHOR'S ORGANIZ ATION 11/15/2023 [facility] ([place]) Care Team (unrecognized sect ion and content) Care Team Related Persons Name: BHAVIK HONG Name: LOLA HONG Reason for Visit (unrecogniz ed section and content) Reason Onset Date Comments Med Refill 06/04/2023 Reason Onset Date Comments Med Refill 06/15/2023 Reason Onset Date Comments Orders 10/05/2023 Reason Comments Hospital Follow-up Care Teams (unrecognized sec tion and content) [employer]ed [employer] Pcb Draftsman Relationship Specialty Start Date End Date Jacinda Benton [address] [facility] [address] [place] [phone] PCP - General 06/23/20 [employer]ed Circuit Board Pcb Draftsman Relationship Specialty Start Date End Date Jacinda Benton [address] [facility] [address] [place] [phone] PCP - General 06/23/20 [employer]ed Circuit Board Pcb Draftsman Relationship Specialty Start Date End Date Jacinda Benton [address] [address] [place] [phone] PCP - General 06/23/20 FOR RECORDS PERTAINING [...] BE BASED ON THE PRIMARY CLINICAL RECORDS. [facility] CoverMyMeds [facility]. provides no warranty or guarantee of the accuracy or completeness of information in this document.
[2023-12-02] MEDS: oxyCODONE 5 MG Tablet 10 MG PO ×2 (13:01→19:50)
--- NOTE | 2023-12-02 14:03 | NEURO.CONS ---
Assessment and Plan: Neuro Assessment/Plan ADY WALLER is a 68 F with a past medical history of MS, being evaluated by Teleneurology for possible MS exacerbation. Symptoms do seem in line with possible exacerbation vs pseudoexacerbation. Given symptoms started several days after getting the flu and when she was improving, believe she is likely does have some exacerbation. Will treat empirically, but also obtain MRI to eval the disease progression and any new lesions. If there are new and active demyelinating lesions then would need to increase duration of steroids and continue monitoring in order to assess improvement. Plan: - MRI Brain and Orbit w/wo contrast - methylprednisolone 1000mg x3 days - continue home baclofen 20mg q6 hrs I personally attended this patient and spent a total time of 45 minutes evaluating this patient including clinical assessment, review of chart, medical history imaging, and determining appropriate treatment and workup. HPI Consult Data Date of Consult: 12/02/23 HPI Narrative HPI Narrative: Patient is 68-year-old female with history of multiple sclerosis, psoriatic arthritis, coronary artery disease, atrial fibrillation (not currently on any anticoagulation secondary to GI upset), bilateral carotid artery stenosis with bilateral CEA as well as brain aneurysm status post coiling in 2013 presenting with weakness and dizziness. Patient is a pretty poor historian and is not forthcoming with what brings her in. It seems like she has been dizzy since yesterday but when asked whether it is more of a lightheaded sensation or room pain sensation she does not answer and just tells me she feels numb all over. She reported to triage nurse that she had headache however she currently denies any acute headache. She denies any focal weakness. She does live home alone. She think she is having an MS flare. She notes that she was diagnosed with pneumonia/influenza a week ago and continues to have a cough. She denies any recent falls, fevers, vomiting or change in bowel habits. Denies any urinary symptoms. Her neurologist is in [place]. ADY WALLER, is a 68 F with past medical history is again for multiple sclerosis, recent hospitalization for acute influenza A infection who presented with generalized weakness. Per patient symptoms have been going on for couple of days. Patient however denied any subjective fever no chills. Presented to the emergency department initial workup including head CT came back unremarkable urinalysis however did demonstrate positive leukocyte esterase. Admitted to a monitored bed for further management Neurologic History: Pt feels dizzy and having vision problems - diplopia. Flare-ups are normally related to increased stiffness and staggering. Will also have vision problems - diplopia. Has poor vision at baseline. Has had increased in difficulty walking but no falls. Normally walks with a rollader. Has had symptoms for last 3 days. Had the flu a week and half ago. Her new neuro symptoms started several days after she started getting over the flu. Has not had an MRI for a while. Last MS exacerbation - has been a long time ago several years ago. Takes baclofen and neurontin currently. Pt has heart problems but has been off medications because they affecting her heart. Has only been on copaxone in the past, last time she took it was a couple years ago. Been relatively stable since she has been off. Pt increased her own baclofen slightly to 2 pills at night since her symptoms started. Pt states she currently takes1 pill q6 hrs Had her aneurysm coiled in 2013. [facility] Medical History Angina pectoris Bilateral carotid artery stenosis Chronic pain syndrome Coronary artery disease Essential (primary) hypertension Fatty liver GERD (gastroesophageal reflux disease) Goiter History of transient ischemic attack (TIA) HLD (hyperlipidemia) Hypothyroidism Influenza A Multiple sclerosis Nonobstructive atherosclerosis of coronary artery Nonsustained paroxysmal supraventricular tachycardia Osteoarthritis Osteoporosis Peripheral vascular occlusive disease Psoriasis Psoriatic arthritis Smoker Thrombocytopenia TIA (transient ischemic attack) Home Medications cholecalciferol (vitamin D3) 125 mcg (5,000 unit) tablet 5,000 unit PO DAILY supplement 12/16/13 [History Last Taken 12/01/23] gabapentin 800 mg tablet 800 mg PO TID MS 07/16/18 [History Last Taken 12/01/23] baclofen 20 mg tablet 20 mg PO Q8H MS 08/11/21 [History Last Taken 12/01/23] levothyroxine 50 mcg tablet 50 mcg PO DAILY thyroid 08/11/21 [History Last Taken 12/01/23] oxycodone 10 mg tablet 10 mg PO Q6H PRN pain 05/24/23 [History Last Taken 12/01/23] clopidogrel 75 mg tablet 75 mg PO DAILY dose increased, pt is OUT of med, please fill #90 TABLETS 06/01/23 [Rx Last Taken 11/18/23] lisinopril 5 mg tablet 5 mg PO DAILY blood pressure #30 tabs 11/02/23 [Rx Last Taken 12/01/23] dextromethorphan-guaifenesin ER 60 mg-1,200 mg tab,extend release,12hr (Mucinex DM) 1 tab PO Q12H cough/congest 7 days #14 tabs 11/16/23 [Rx Last Taken 12/01/23] apixaban 5 mg tablet (Eliquis) 5 mg PO BID 30 days #60 tabs 11/21/23 [Rx Last Taken 12/01/23] metoprolol tartrate 25 mg tablet 12.5 mg (1/2 x 25 mg) PO BID 30 days #30 tabs 11/21/23 [Rx Last Taken 12/01/23] Allergy/AdvReac Type Severity Reaction Status Date / Time colestipol [From Colestid] Allergy Mild unknown Verified 11/26/23 12:47 pregabalin [From Lyrica] Allergy Mild Hives Verified 11/26/23 12:47 amitriptyline Allergy Rash Verified 11/26/23 12:47 temazepam [From Restoril] AdvReac Mild Nausea/Vom/ Verified 11/26/23 12:47 Diarrhea Antihistamines - Alkylamine AdvReac Nausea/Vom/ Verified 11/26/23 12:47 Diarrhea Antihistamines - Ethanolamine AdvReac Nausea/Vom/ Verified 11/26/23 12:47 Diarrhea Antihistamines - AdvReac Nausea/Vom/ Verified 11/26/23 12:47 Ethylenediamine Diarrhea Antihistamines - Piperazine AdvReac Nausea/Vom/ Verified 11/26/23 12:47 Diarrhea Antihistamines - Piperidine AdvReac Nausea/Vom/ Verified 11/26/23 12:47 Diarrhea aspirin AdvReac I'M ON Verified 11/26/23 12:47 BLOOD THINNERS codeine AdvReac Nausea Verified 11/26/23 12:47 Corticosteroids AdvReac Upset Verified 11/26/23 12:47 (Glucocorticoids) Stomach morphine AdvReac Nausea Verified 11/26/23 12:47 Oobcvxg-JBL-SmH Reductase AdvReac Nausea Verified 11/26/23 12:47 Inhibitor [Urjpvfs-Bfd-Xhr Reductase Inhibitor] Family History Mother Cancer CAD (coronary artery disease) Brain tumor Grandfather CVA (cerebral vascular accident) Father CAD (coronary artery disease) Ruptured abdominal aortic aneurysm (AAA) Sister Brain aneurysm Surgical History Brain aneurysm Fracture of right lower leg H/O hemorrhoidectomy H/O: History of angioplasty of peripheral vessel History of angioplasty of peripheral vessel (07/11/19) History of appendectomy History of section History of cholecystectomy History of hemorrhoidectomy History of hysterectomy History of left breast biopsy History of left heart catheterization (01/25/15) History of left-sided carotid endarterectomy History of partial thyroidectomy (11/30/05) History of right-sided carotid endarterectomy S/P coil embolization of cerebral aneurysm S/P hysterectomy S/P insertion of iliac artery stent S/P thyroidectomy Stenosis of left subclavian artery Social History household members: none Smoking Status: Current every day smoker tobacco type: cigarettes alcohol intake: never caffeine: Yes Type: coffee and tea Vital Signs Vital Signs Vital Signs: 12/02/23 06:30 12/02/23 06:33 12/02/23 06:40 Temperature 97.4 F L 97.6 F L Temperature Source Oral Oral Pulse Rate 63 66 Respiratory Rate 22 H 16 Respiratory Effort Normal Non-Labored Respiratory Pattern Normal Blood Pressure 201/91 H Blood Pressure Mean 127 Blood Pressure Source Blood Pressure Position Blood Pressure Location Pulse Ox 97 93 Oxygen Delivery Method Room Air Room Air 12/02/23 08:13 12/02/23 08:53 12/02/23 10:30 Temperature Temperature Source Pulse Rate 72 53 L 51 L Respiratory Rate 21 H 22 H 19 H Respiratory Effort Respiratory Pattern Blood Pressure 156/74 H 207/82 H 183/93 H Blood Pressure Mean 101 123 123 Blood Pressure Source Blood Pressure Position Blood Pressure Location Pulse Ox 92 97 96 Oxygen Delivery Method Room Air Room Air Room Air 12/02/23 11:40 12/02/23 12:38 12/02/23 12:43 Temperature 98.1 F 98.1 F Temperature Source Oral Oral Pulse Rate 48 L 51 L 51 L Respiratory Rate 15 16 16 Respiratory Effort Respiratory Pattern Blood Pressure 176/48 H 130/77 H 130/77 H Blood Pressure Mean 90 94 94 Blood Pressure Source Monitor Blood Pressure Position Semi-Fowlers Blood Pressure Location Right Arm Pulse Ox 94 98 98 Oxygen Delivery Method Room Air Room Air 12/02/23 13:31 12/02/23 13:38 Temperature Temperature Source Pulse Rate Respiratory Rate Respiratory Effort Respiratory Pattern Blood Pressure Blood Pressure Mean Blood Pressure Source Blood Pressure Position Blood Pressure Location Pulse Ox Oxygen Delivery Method Room Air Room Air Weight Weight: 56 kg Body Mass Index (BMI) 20.5 Physical Exam Narrative -? General: Laying comfortably in bed; in no acute distress. -? HENT: Normal oropharynx and mucosa. Normal external appearance of ears and nose. Exophthalmos. -? Neck: Supple, no pain or tenderness -? CV:? No peripheral edema. -? Pulmonary:? Normal respiratory effort. -? Ext: No cyanosis, edema, or deformity -? Skin: No rash. Normal palpation of skin.? -? Musculoskeletal: full range of motion; no joint tenderness. Normal digits and nails by inspection. No clubbing. -? NEURO: -? Mental Status: The patient was alert and oriented to time, place, and person. Normal recent/remote memory, concentration, and general fund of knowledge. -? Language: speech is clear.? Naming, repetition, fluency, and comprehension intact. -? Cranial Nerves: R pupil 4mm no reactivity, L pupil 3mm reactive to light, no reactivity on R pupil with swinging eye test. EOMI, visual duarte full, no facial asymmetry, facial sensation intact, hearing intact, tongue midline, no evidence of atrophy or fibrillations. tongue with R deviation nystagmus on b/l eval, R>L. -? Motor: normal bulk, tone, and strength throughout. No pronator drift or satelliting. Upper and lower extremities equal bilaterally. -? Detailed strength exam as performed by the nurse/ANTHONY and witnessed by the physician: R L SA 5 4 EE 5 4 EF 5 4 WE WF Oracle Database Consultant 5 5 HF 3 4 KE 4 3 KF 3 3 DF 5 5 PF 5 5 -? Tone: is normal and bulk is normal - no spasticity noted in the elbows and knees -? Sensation- Intact to light touch bilaterally -? Coordination: ataxia in the LUE and RLE on FTN and HTS respectively -? Gait- deferred Lab / Micro Data 12/02/23 06:40 12/02/23 06:40 Labs: Laboratory Results - last 24 hr 12/02/23 06:40: WBC 6.6, RBC 4.21, Hgb 12.5, Hct 37.5, MCV 89.1, MCH 29.7, MCHC 33.3, RDW Std Deviation 50.4 H, RDW Coeff of David 15.5 H, Plt Count 281, MPV 9.1, Immature Gran % (Auto) 0.800, Neut % (Auto) 56.3, Lymph % (Auto) 28.5, [place] % (Auto) 12.7 H, Eos % (Auto) 0.9, Baso % (Auto) 0.8, Absolute Neuts (auto) 3.8, Absolute Lymphs (auto) 1.89, Nucleated RBC % 0, Sodium 140, Potassium 3.7, Chloride 107, Carbon Dioxide 25.0, Anion Gap 8, BUN 16, Creatinine 1.13 H, Estim Creat Clear Calc 41.54, Est GFR (MDRD) Af Amer 61, Est GFR (MDRD) Non-Af 51 L, BUN/Creatinine Ratio 14.2, Glucose 109 H, Calcium 8.8, Total Creatine Kinase 26 12/02/23 10:30: Urine Color Yellow, Urine Clarity Clear, Urine pH 6.5, Ur Specific [place] 1.015, Urine Protein 15 H, Urine Glucose (UA) Normal, Urine Ketones Negative, Urine Occult Blood Negative, Urine Nitrite Negative, Urine Bilirubin Negative, Urine Urobilinogen Normal, Ur Leukocyte Esterase 25 H, Urine RBC 0 SEEN, Urine WBC 0 SEEN, Ur Squamous Epith Cells 0 SEEN, Urine Bacteria 0 SEEN, Urine Mucus 0 SEEN Micro: Microbiology 12/02/23 07:37 Mucosa - Nose SARS-CoV-2, Influenza & RSV (PCR) - Final Rhythm Strip Rhythm Strip: Sinus Rhythm Rate: 55 Ectopy: None Imagaing Radiology Impression Brain CT 12/02/23 07:28 IMPRESSION: No acute intracranial abnormality. No interval change. Electronically Signed: Chago Mcintyre MD at 8:45 EST Reading Location ID and State: [facility] / [place] Tel , Service support , Chest X-Ray 12/02/23 07:28 IMPRESSION: Minimal infiltrate or atelectasis of the right lower lobe. Electronically Signed: Chago Mcintyre MD at 9:06 EST , Active Medications Active Medications Active Medications: Current Medications Generic Name Dose Route Start Last Admin Trade Name Freq PRN Reason Stop Dose Admin Acetaminophen 650 mg 12/02/23 12:37 Acetaminophen 325 Mg Tablet PO Q6H PRN PRN Pain 1-10 Or Fever >100.7 Al Hydroxide/Mg Hydroxide 30 ml 12/02/23 12:37 Mag Hydrox/Al Hydrox/Simeth 30 Ml Udc PO Q6H PRN PRN Gastric Burning Albuterol Sulfate 2.5 mg 12/02/23 12:37 Albuterol 2.5 Mg/3 Ml Vial.Neb. INHALATION Q2H PRN PRN SOB/Wheezing Apixaban 5 mg 12/02/23 22:00 Apixaban 5 Mg Tablet PO BID VIMAL Baclofen 20 mg 12/02/23 12:45 Baclofen 10 Mg Tablet PO Q8 VIMAL Cholecalciferol 125 mcg 12/03/23 10:00 Cholecalciferol (Vit D3) 125 Mcg Capsule (5,000 Units) PO DAILY VIMAL Clopidogrel Bisulfate 75 mg 12/03/23 10:00 Clopidogrel Bisulfate 75 Mg Tablet PO DAILY VIMAL Docusate Sodium 100 mg 12/02/23 12:37 Docusate Sodium 100 Mg Capsule PO BID PRN PRN Constipation Gabapentin 800 mg 12/02/23 12:45 Gabapentin 800 Mg Tablet PO TIDCM [facility] Guaifenesin 1 tablet 12/02/23 22:00 Guaifenesin/D-Methorphan Tab.Sr.12h PO Q12 VIMAL Guaifenesin 20 ml 12/02/23 12:37 Guaifenesin 10 Ml Udc (200mg/10ml) PO Q4H PRN PRN COUGH Potassium Chloride/Dextrose/Sod Cl 20 meq in 1,000 mls @ 100 mls/hr 12/02/23 12:37 IV 12/03/23 08:36 .Q10H VIMAL Ceftriaxone Sodium 1 gm in 50 mls @ 100 mls/hr 12/02/23 12:37 Rocephin IV 12/09/23 12:38 Q24 [facility] Levothyroxine Sodium 50 mcg 12/03/23 06:00 Levothyroxine 50 Mcg Tablet PO DAILY@0600 [facility] Lisinopril 5 mg 12/03/23 10:00 Lisinopril 5 Mg Tablet PO DAILY [facility] Protocol Melatonin 3 mg 12/02/23 12:37 Melatonin 3 Mg Tablet PO QHS PRN PRN INSOMNIA Metoprolol Tartrate 12.5 mg 12/02/23 22:00 Metoprolol Tartrate 25 Mg Tablet PO BID [facility] Protocol Nitroglycerin 0.4 mg 12/02/23 12:37 Nitroglycerin (Inpatient Use) 0.4 Mg Tab.Subl SL Q5M PRN CARDIAC/CHEST PAIN Ondansetron HCl 4 mg 12/02/23 12:37 Ondansetron 4 Mg/2 Ml Vial IV Q8H PRN PRN NAUSEA/VOMITING Oxycodone HCl 10 mg 12/02/23 12:37 12/02/23 13:01 Oxycodone 5 Mg Tablet PO 10 mg Q4H PRN PRN Administration Pain Score 4-10
[2023-12-02] MEDS: Ceftriaxone 1 GM/50 ML BAG IV (14:32)
[2023-12-02] MEDS: KCl 20MEQ in D5NS 20 MEQ/1,000 ML IV.SOLN. 100 MEQ IV (14:32)
[2023-12-02] MEDS: Gabapentin 800 MG Tablet PO (14:32)
[2023-12-02] MEDS: Baclofen 10 MG Tablet 20 MG PO ×3 (14:33→23:22)
[2023-12-02] MEDS: MethylPREDNISolone 1,000 MG in 0.9% Normal Saline (100mL Bag) 100 ML 100 MG IV (16:42)
[2023-12-02] MEDS: guaiFENesin/D-Methorphan TAB.SR.12H 1 TABLET PO (19:50)
[2023-12-03] VITALS (23 sets, daily range): BP systolic 126–254; BP diastolic 64–118; PULSE 52–132; RESP 16–28; TEMP 36.2–36.6; O2SAT 85–100
[2023-12-03] MEDS: Meclizine HCl 25 MG Tablet PO (00:13)
[2023-12-03] MEDS: oxyCODONE 5 MG Tablet 10 MG PO (00:20)
[2023-12-03] MEDS: KCl 20MEQ in D5NS 20 MEQ/1,000 ML IV.SOLN. 100 MEQ IV (00:41)
[2023-12-03] MEDS: Baclofen 10 MG Tablet 20 MG PO (05:50)
[2023-12-03] MEDS: Levothyroxine 50 MCG Tablet PO (05:50)
[2023-12-03 06:03] LABS: Absolute Lymphocyte Count 0.48 X10^3/uL (0.83-4.51); Absolute Neutrophil Count 4.2 X10^3/uL (2.0-7.7); Basophil# 0.01 X10^3/uL; Basophil% 0.2 % (0-1); Hematocrit 35.3 % (37-47); Hemoglobin 11.3 g/dL (12.0-15.0); Lymphocyte # 0.48 X10^3/ul (0.83-4.51); Lymphocyte % 10.2 % (19-41); Mean Corpuscular Hgb 29.8 pg (27.0-32.0); Mean Corpuscular Volume 93.1 fL (81-99); Mean Platelet Vol. 9.3 fl (6.2-12.0); Monocyte# 0.04 X10^3/uL; Monocyte% 0.8 % (0-10); NRBC Flagged by Analyzer 0 % (0-5); Neutrophil # 4.17 X10^3/uL (2.7-7.7); Neutrophil % 88.4 % (47-70); POSITIVE DIFFERENTIAL YES; Platelet Count 257 K/mm3 (150-450); RBC Distribution Width CV 15.6 % (11.6-14.6); RBC Distribution Width SD 53.4 fl (35.1-43.9); Red Blood Count 3.79 M/mm3 (4.2-5.4); White Blood Count 4.7 K/mm3 (4.4-11.0)
[2023-12-03] MEDS: hydrALAZINE 20 MG/ML Vial 10 MG IV ×3 (06:07→20:06)
[2023-12-03 06:21] LABS: Differential Indicated SCAN CRITERIA MET
[2023-12-03 06:46] LABS: Anion Gap 6 (5-15); BUN 24 mg/dL (7-18); BUN/Creat Ratio 18.6 RATIO (10-20); Calcium,Total 8.3 mg/dL (8.5-10.1); Chloride 110 mmol/L (98-107); Creatinine, Serum 1.29 mg/dL (0.55-1.02); EST Glomerular Filtration Rate 44 mL/min (>60); Est Glom Filt Rate - Afr Amer 53 mL/min (>60); Estimated Creatinine Clearance 36.39 ml/min; Glucose 198 mg/dL (74-106); Magnesium 2.6 mg/dL (1.6-2.6); Sodium Level 139 mmol/L (136-145)
[2023-12-03 07:15] LABS: Differential Comment SCANNED
--- NOTE | 2023-12-03 08:01 | CT_ITS ---
STUDY: CT HEAD STROKE PROTOCOL W/O CONTRAST INJECTION REASON FOR EXAM: Female, 68 years old. R/O Stroke RADIATION DOSAGE (If Supplied By Facility): CTDIvol = ( 44.99 ) mGy, DLP = ( 812.98 ) mGycm TECHNIQUE: Transaxial CT imaging of the brain was performed without administration of intravenous contrast material. Individualized dose optimization techniques were used for this CT. COMPARISON: Comparison is made with prior study dated December 02, 2023. FINDINGS: Normal soft tissue structures. Normal calvarium. There is mild cerebral atrophy with widening of the extra-axial spaces and ventricular dilatation. Normal white matter tracts of the cerebral hemispheres. Normal basal ganglia and thalami. Normal brainstem. Normal cerebellum. There is no intracranial hemorrhage. There are no findings of an acute ischemic infarction. Once again, significant metallic artifacts are seen at the base of the skull due to prior aneurysm coils at the level of the proximal anterior cerebral arteries. Normal visualized paranasal sinuses. ASPECT score: 10 CT/STROKE Brain/Head without Cont IMPRESSION: Chronic involutional changes of the brain. Stable examination. N.B. : The above Results were Read Back by Jovon Freitas MD to Sachin Murillo MD, and understanding confirmed on 12/03/2023 08:25:43 (ET). Electronically Signed: Jovon Freitas MD at 8:27 EST ,
[2023-12-03 08:17] LABS: Bedside Glucose 175 mg/dL (74-106)
[2023-12-03] MEDS: Labetalol (Prefilled) 20 MG/4 ML 10 MG IV ×2 (08:17→21:21)
[2023-12-03] MEDS: Ondansetron 4 MG/2 ML Vial IV (11:17)
[2023-12-03] MEDS: Ceftriaxone 1 GM/50 ML BAG IV (11:27)
[2023-12-03] MEDS: MethylPREDNISolone 1,000 MG in 0.9% Normal Saline (100mL Bag) 100 ML 100 MG IV (12:29)
--- NOTE | 2023-12-03 14:19 | PN.HOSP_ITS ---
Subjective Subjective She was a stroke alert this morning secondary to a possible left facial droop and left upper extremity weakness with confusion and repetitive speech CT of the brain was negative for bleed MRI is pending she does have a history of MS and is currently here for pseudo flare in the setting of cystitis which could also cause these findings that led to the stroke alert. She then had a rapid response called because of what appeared to be a swollen tongue and swollen lip however she remains 100% on room air so unlikely to have any allergic reaction as she is not taking anything that she is allergic to Objective Data Objective Data Vital Signs: Vital Signs Temp Pulse Resp BP Pulse Ox O2 Del Method 98 F 110 H 18 161/95 H 99 Room Air 12/03/23 13:33 12/03/23 13:33 12/03/23 13:33 12/03/23 13:33 12/03/23 13:33 12/03/23 13:33 Oxygen Delivery Method Room Air Weight: 123 lb 7.342 oz Body Mass Index (BMI) 20.5 Intake & Output: Intake and Output for Last 24 Hours 12/02/23 12/03/23 12/04/23 03:59 03:59 03:59 Intake Total 1406 / 1406 1050 / 1050 Balance 1406 / 1406 1050 / 1050 Lab / Micro Data 12/03/23 05:40 12/03/23 05:40 Labs: Laboratory Results - last 24 hr 12/03/23 05:40: WBC 4.7, RBC 3.79 L, Hgb 11.3 L, Hct 35.3 L, MCV 93.1, MCH 29.8, MCHC 32.0, RDW Std Deviation 53.4 H, RDW Coeff of David 15.6 H, Plt Count 257, MPV 9.3, Immature Gran % (Auto) 0.400, Neut % (Auto) 88.4 H, Lymph % (Auto) 10.2 L, [place] % (Auto) 0.8, Eos % (Auto) 0.0, Baso % (Auto) 0.2, Absolute Neuts (auto) 4.2, Absolute Lymphs (auto) 0.48 L, Nucleated RBC % 0, Differential Comment SCANNED, Sodium 139, Potassium 5.0, Chloride 110 H, Carbon Dioxide 23.0, Anion Gap 6, BUN 24 H, Creatinine 1.29 H, Estim Creat Clear Calc 36.39, Est GFR (MDRD) Af Amer 53 L, Est GFR (MDRD) Non-Af 44 L, BUN/Creatinine Ratio 18.6, Glucose 198 H, Calcium 8.3 L, Phosphorus 3.0, Magnesium 2.6 12/03/23 07:58: POC Glucose 175 H Micro: Microbiology 12/02/23 10:27 Urine, Catheterized Urine Culture - Preliminary Culture exhibits no growth. 12/02/23 07:37 Mucosa - Nose SARS-CoV-2, Influenza & RSV (PCR) - Final Radiography Diagnostic Testing: Radiology Impression Brain CT 12/03/23 08:01 IMPRESSION: Chronic involutional changes of the brain. Stable examination. N.B. : The above Results were Read Back by Jovon Freitas MD to Sachin Murillo MD, and understanding confirmed on 12/03/2023 08:25:43 (ET). Electronically Signed: Jovon Freitas MD at 8:27 EST , ADDENDUM: 12/03/23 0833 IMPRESSION: Chronic involutional changes of the brain. Stable examination. N.B. : The above Results were Read Back by Jovon Freitas MD to Sachin Murillo MD, and understanding confirmed on 12/03/2023 08:25:43 (ET). Electronically Signed: Jovon Freitas MD at 8:27 EST , Rhythm Strip Rhythm Strip: Sinus Rhythm Rate: 55 Ectopy: None Physical Exam Narrative General: Drowsy but alert, does not communicate and follows commands intermittently HEENT: Atraumatic, PERRLA, EOMI, Normocephalic Oral: Moist Mucosa Neck: Supple, No JVD Lungs: Diminished, Normal air movement, No rhonchi, No wheeze, No rales Cardiovascular: Regular rate, Regular Rhythm, Normal S1, Normal S2, No murmurs Abdomen: Soft, Non Tender, Non-Distended, No Hepato-splenomegaly Extremities: No edema, Capillary Refill Less than 3 Seconds Skin: No rashes, No breakdown Musculoskeletal: No Tenderness to Palpation of Joints or Extremities Neurological: Moves all extremities, possible left facial droop, encephalopathic does not follow commands Psych/Mental Status: Flat Assessment & Plan Assessment/Plan (1) Weakness: PLAN: Plan 1. Progressive generalized weakness due to UTI in the setting of MS with hypertensive urgency ? Differential diagnoses include patient possible cystitis versus MS flareup. Plan is to treat the underlying suspected cystitis and if no improvement patient to be initiated on steroids consult subsequently placed to teleneurology 12/03/2023: Stroke alert was called for change though it is unclear as to what h er baseline has been since admission with a UTI and generalized weakness will attempt to get an MRI without contrast to evaluate for possible stroke in the meantime she is significantly hypertensive and she was given a dose of labetalol in the CT scanner this will be made every 4 as needed as well as the hydralazine she has on board currently receiving 1 g of Solu-Medrol daily per recommendations neurology 2. Paroxysmal A-fib ? Rate controlled on systemic anticoagulation with apixaban continue 3. Essential hypertension ? Patient blood pressure control not optimal due to continuing home meds added hydralazine as needed. Blood pressure greater than 160 12/03/2023: Have to broaden her blood pressure medications to try to get better control unclear if she is consistently taking her medications at home 7. Tobacco dependence - Counseled on cessation, offered nicotine patch for tobacco cravings 8. Hypothyroidism - Patient is on levothyroxine home dose continued 9. Peripheral arterial disease ? With history of iliac stent As well as bilateral carotid endarterectomy. Patient is on antiplatelet therapy 10. Psoriatic arthritis ? Patient not on any DMARDs, will continue with pain meds as needed DVT: Eliquis Capacity Legal Check Processor Reflex Medical hold order details:: IF a medical hold is selected below, a suggested order for a MEDICAL HOLD will reflex upon signing the document. Next of kin: [place] law dictates a PRIORITY LIST for identifying legal decision-maker/legal next of kin in the following order (LNOK): 1st: The patient?s legal guardian, if any 2nd: The patient's spouse (if status is questionable, consult Risk Management) 3rd: The patient?s adult child(blaine) (majority, if multiple children) 4th: The patient?s parents 5th: The patient?s adult siblings (majority, if multiple children siblings) Charges/Coding Visit Charges Inpatient E&M: 39942 Subs Hosp L2
--- NOTE | 2023-12-03 14:35 | RAD_ITS ---
STUDY: X-RAY CHEST REASON FOR EXAM: Female, 68 years old. Possible aspiration -- portable TECHNIQUE: Single AP portable view of the chest. COMPARISON: Comparison is made with prior study dated December 02, 2023. FINDINGS: EKG electrodes are seen. Minimal residual increased markings at the right lung base. There is no demonstrated pleural abnormality. Normal size heart. Normal mediastinum and david. Normal visualized pulmonary arteries. There is atherosclerotic tortuosity of the aortic arch and descending thoracic aorta. Normal visualized thoracic spine. Normal visualized ribs, clavicles, and shoulders. There is no demonstrated abnormality of the visualized soft tissue structures of the upper abdomen. RAD/Chest 1 View (Portable) IMPRESSION: Minimal residual increased markings at the right lung base. No other abnormality is seen. Electronically Signed: Jovon Freitas MD at 14:59 EST ,
[2023-12-03 15:03] LABS: Allen Test Positive; Base Excess -3 mmol/L (-2 to +2); Bicarbonate 21.6 mmol/L (22-26); Blood Gas Specimen Type ART; Mode Not entered; O2 Delivery Device Cannula; PO2 73 mmHG (75-100); SITE L Radial; SO2 95 % (95-99); Total Carbon Dioxide 23 mmol/L; pCO2 32.5 mmHg (35-45); pH 7.43 (7.35-7.45)
--- NOTE | 2023-12-03 15:33 | CHAPLAIN ---
Type of Pastoral Visit ___ Initial Visit ___ Follow-up Visit ___ On-call Visit ___ General Patient Visit ___ Spiritual Assessment ___ Family Conference ___ Bereavement _x__ Rapid Response ___ Code Blue ___ Other (describe below) Pastoral Care Referral From ___ Patient ___ Family ___ Nurse ___ Physician ___ Hydroelectric Plant Mechanical Engineer ___ Mold Maintenance Technician _x__ Other (describe below) Sacrament/Intervention ___ Active listening ___ Anointing ___ Caodaism ___ Bereavement ___ Communion ___ Kaci exploration ___ ___ Life review ___ Prayer ___ Reconciliation ___ Sacrament of Sick _x__ Supportive presence ___ Wedding ___ Other (describe below) Pastoral Comments this patient was a referral but prior to initial visit there was a rapid response called for her; went to room and the medical team is evaluating and caring for the patient; no family members are present; later returned to the room and the patient is being prepared to go for an MRI; pt is not alert and is not able to speak; will continue attempts to make contact with this patient at another time
--- NOTE | 2023-12-03 16:11 | CASEMGMT ---
EVERT CHAVARRIA chart review: patient was admitted 11/15-11/16/23 for influenza A and CHRISTOPHER and 11/18/23-11/21/23 for PAF new onset and GI bleed. See assessment from 11/16/23. 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 Patient had ED visit on 11/26/23 for cough and 11/27/23 for Facial paresthesia and discharge to home. Patient returned 12/02/22 weakness and admitted, being treated for possible UTI. 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 Patient is currently confused and unable to participate with discharge planning. Therapy evals pending. CM will continue to follow this patient and plan for a safe discharge.
--- NOTE | 2023-12-03 20:19 | PCM.HOSP.N ---
Hospitalist Note During my pre-rounds prior to 7 PM I visited the PCU was informed this patient had aspirated earlier in the day along with persistent altered mental status. An MRI was unable to be obtained due to her respiratory status as they were worried that she may have a second aspiration event. An order was made for patient to have an ABG checked and for them to call me with the results. Unfortunately, this ABG was unable to be done but I was called to say the patient had persistent altered mental status and was not protecting her airway . The patient was noted to have stable vital signs and her atrial fibrillation with rapid ventricular response present earlier in the day had resolved as of this time. I patiently spoke to the PROTOCOL MANAGER and informed her to send the patient to the ICU. I also spoke to the patient's son/POA at the bedside and he informed me that if she required intubation he would like it to be done and that she is a full code. The plan was for her to undergo MRI in the a.m. if it was possible to obtain. Now we will give Zofran 4 mg IV once followed by Versed 2 mg IV once with a STAT CTA of the head and neck with stroke protocol to be done this evening EMBER. Results of CTA noted below negative for acute pathologic changes. Patient's son was updated with results. RUN DATE: 12/03/23 [facility], DEPARTMENT OF LABORATORIES PAGE 1 RUN TIME: 2038 Specimen Inquiry [address], [place], [address] PATIENT: ADY WALLER LOC: ICU U #: [id number] : 1955 AGE/SX: 68/F FACILITY: [facility] ROOM: ICU02 RE12/02/[address]: Dr. Sachin Murillo STATUS:ADM IN ED: 1 DIS: ~ SPEC #: [id number] LIZBET: 12/03/23 STATUS: COMP REQ #: [id number] RECD: 12/03/23-[address]: Dr. Sacihn Murillo MD ENTERED: 12/03/23 [facility] DR: Kt Friend MD, Ruby Shields,Angie MD Jo Ann Krishnamurthy MD Dr. Deepak Gulati, MD Dr. David Kittoe, MD Dr. Eric Smith, MD Dr. Hera Kamdar, MD Dr. Jan Bittar, MD Dr. James Burke, MD Margaret Beigel, DO Dr. Matthew Gusler, DO Mian, Maryam Dr. Mohamed Ridha, MD Dr. Mhd Ezzat Zaghlouleh, MD Robison, Peter Dr. Rami Ibrahim, MD Dr. Sushil Lakhani, MD Dr. Vivien Lee, MD Hannawi, Yousef MD ~ Test Result Flag Adult Reference Range IBG Blood Gas Type ART SITE L Radial KAYE TEST Positive Mode Not entered O2 Delivery Dev Cannula FI02 5.0 pH 7.43 7.35-7.45 pCO2 32.5 L 35-45 mmHg PO2 73 L 75-100 mmHG HCO3 21.6 L 22-26 mmol/L BE -3 L -2 to +2 mmol/L TOTAL CO2 23 mmol/L SO2 95 95-99 % [facility] Imaging Services [address] [place] [id number] CTA Head AND Neck W/ Contrast MR#: [id number] Acct: [id number] Name: ADY WALLER Rep #: [id number] : 1955 F 68 From: Charmaine Gratn MD PCP: Dr. Daron Benton MD Status: ADM IN Study: CTA Head AND Neck W/ Contrast Date of Exam: 12/03/23 Exam# [id number] Ordering Dr: Roman Miller DO STUDY: CTA HEAD AND NECK WITH CONTRAST REASON FOR EXAM: Female, 68 years old. mental status change RADIATION DOSAGE (If Supplied By Facility): CTDIvol = ( 27.03 ) mGy, DLP = ( 1263.35 ) mGycm TECHNIQUE: CT angiography was performed with a multi-detector CT scanner. Data acquisition was obtained from the skull base through the vertex following intravenous administration of IV 100mL Isovue-370. MIP images were reconstructed from the axial data set. Post-processing of the angiographic images was performed, with multiplanar reformation and 3D reconstruction. Individualized dose optimization techniques were used for this CT. COMPARISON: 11/27/2023. FINDINGS: Normal bilateral petrous carotid arteries. There is calcified plaque formation of the right cavernous carotid artery, without a cross-sectional luminal stenosis. There is calcified plaque formation of the left cavernous carotid artery, without a cross-sectional luminal stenosis. Normal visualized right A1 segments of the anterior cerebral artery, otherwise partially obscured due to streaky artifact. Normal left A1 segments of the anterior cerebral artery. Streaky artifact from embolization coils at the anterior communicating artery suggestive of aneurysmal repair. Normal bilateral A2 segments of the anterior cerebral arteries. Normal right M1 and M2 segments of the middle cerebral arteries, with a normal M1 bifurcation. Normal left M1 and M2 segments of the middle cerebral arteries, with a normal M1 bifurcation. Normal right posterior communicating artery (PCOM). Normal left posterior communicating artery (PCOM). Normal bilateral vertebral arteries. Normal basilar artery with a normal basilar bifurcation. The visualized bilateral superior cerebellar (SCA) arteries are normal. Normal bilateral P1, P2 and visualized P3 segments of the posterior cerebral arteries. There is no demonstrated aneurysm of the [place] of [place]. There is no demonstrated abnormality of the visualized brain. AORTIC ARCH: There is atherosclerotic calcific plaque formation of the aortic arch and great vessels arising from the aortic arch, without a hemodynamically significant stenosis. There is a bovine origin of the great vessels with a common origin of the brachiocephalic and left common carotid artery. Normal origin of the left subclavian artery. RIGHT CAROTID ARTERIES: There is mild atherosclerotic plaque formation of the distal common carotid artery, but without a hemodynamically significant stenosis. There is mild atherosclerotic plaque formation with minimal narrowing of the right carotid bulb. There is a bypass from the distal right common carotid artery to the distal left common carotid artery with normal opacification, well-preserved patency. Normal origin of the right internal carotid (ICA) artery without a hemodynamically significant stenosis. Normal visualized cervical portion of the right internal carotid artery. Normal origin of the right external carotid artery (ECA). LEFT CAROTID ARTERIES: Normal left common carotid artery (CCA). There is mild atherosclerotic plaque formation with minimal narrowing of the left carotid bulb. There is mild atherosclerotic plaque formation of the origin of the left internal carotid artery with less than 50% cross sectional diameter stenosis. Normal visualized cervical portion of the left internal carotid artery. Normal origin of the left external carotid artery (ECA). VERTEBRAL ARTERIES: There is enhancement within the bilateral vertebral arteries with a small right vertebral artery, and a dominant left vertebral artery. CT/CTA Head AND Neck W/ Contrast IMPRESSION: CTA neck: Patent graft between the cephalad aspect of the bilateral common carotid artery. Mild atherosclerotic disease of the left carotid bulb and proximal left internal carotid artery. No significant stenosis, occlusion or dissection involving the bilateral carotid and vertebral arteries. CTA brain: No intracranial significant stenosis, occlusion or aneurysm. Electronically Signed: Charmaine Grant MD at 22:18 EST , CC: Dr. Roman Miller DO; Dr. Daron Benton MD ~ Editor Map: Signed
--- NOTE | 2023-12-03 21:10 | CT_ITS ---
STUDY: CTA HEAD AND NECK WITH CONTRAST REASON FOR EXAM: Female, 68 years old. mental status change RADIATION DOSAGE (If Supplied By Facility): CTDIvol = ( 27.03 ) mGy, DLP = ( 1263.35 ) mGycm TECHNIQUE: CT angiography was performed with a multi-detector CT scanner. Data acquisition was obtained from the skull base through the vertex following intravenous administration of IV 100mL Isovue-370. MIP images were reconstructed from the axial data set. Post-processing of the angiographic images was performed, with multiplanar reformation and 3D reconstruction. Individualized dose optimization techniques were used for this CT. COMPARISON: 11/27/2023. FINDINGS: Normal bilateral petrous carotid arteries. There is calcified plaque formation of the right cavernous carotid artery, without a cross-sectional luminal stenosis. There is calcified plaque formation of the left cavernous carotid artery, without a cross-sectional luminal stenosis. Normal visualized right A1 segments of the anterior cerebral artery, otherwise partially obscured due to streaky artifact. Normal left A1 segments of the anterior cerebral artery. Streaky artifact from embolization coils at the anterior communicating artery suggestive of aneurysmal repair. Normal bilateral A2 segments of the anterior cerebral arteries. Normal right M1 and M2 segments of the middle cerebral arteries, with a normal M1 bifurcation. Normal left M1 and M2 segments of the middle cerebral arteries, with a normal M1 bifurcation. Normal right posterior communicating artery (PCOM). Normal left posterior communicating artery (PCOM). Normal bilateral vertebral arteries. Normal basilar artery with a normal basilar bifurcation. The visualized bilateral superior cerebellar (SCA) arteries are normal. Normal bilateral P1, P2 and visualized P3 segments of the posterior cerebral arteries. There is no demonstrated aneurysm of the [place]. There is no demonstrated abnormality of the visualized brain. AORTIC ARCH: There is atherosclerotic calcific plaque formation of the aortic arch and great vessels arising from the aortic arch, without a hemodynamically significant stenosis. There is a bovine origin of the great vessels with a common origin of the brachiocephalic and left common carotid artery. Normal origin of the left subclavian artery. RIGHT CAROTID ARTERIES: There is mild atherosclerotic plaque formation of the distal common carotid artery, but without a hemodynamically significant stenosis. There is mild atherosclerotic plaque formation with minimal narrowing of the right carotid bulb. There is a bypass from the distal right common carotid artery to the distal left common carotid artery with normal opacification, well-preserved patency. Normal origin of the right internal carotid (ICA) artery without a hemodynamically significant stenosis. Normal visualized cervical portion of the right internal carotid artery. Normal origin of the right external carotid artery (ECA). LEFT CAROTID ARTERIES: Normal left common carotid artery (CCA). There is mild atherosclerotic plaque formation with minimal narrowing of the left carotid bulb. There is mild atherosclerotic plaque formation of the origin of the left internal carotid artery with less than 50% cross sectional diameter stenosis. Normal visualized cervical portion of the left internal carotid artery. Normal origin of the left external carotid artery (ECA). VERTEBRAL ARTERIES: There is enhancement within the bilateral vertebral arteries with a small right vertebral artery, and a dominant left vertebral artery. CT/CTA Head AND Neck W/ Contrast IMPRESSION: CTA neck: Patent graft between the cephalad aspect of the bilateral common carotid artery. Mild atherosclerotic disease of the left carotid bulb and proximal left internal carotid artery. No significant stenosis, occlusion or dissection involving the bilateral carotid and vertebral arteries. CTA brain: No intracranial significant stenosis, occlusion or aneurysm. Electronically Signed: Charmaine Grant MD at 22:18 [facility] ,
[2023-12-03 21:19] LABS: Allen Test Positive; Base Excess -3 mmol/L (-2 to +2); Bicarbonate 21.5 mmol/L (22-26); Blood Gas Specimen Type ART; Mode Not entered; O2 Delivery Device Cannula; PO2 93 mmHG (75-100); SITE L Radial; SO2 97 % (95-99); Total Carbon Dioxide 23 mmol/L; pCO2 34.8 mmHg (35-45)
[2023-12-03] MEDS: Midazolam 2 MG/2 ML Syringe IV (21:21)
[2023-12-03] MEDS: Ondansetron 4 MG/2 ML Vial IM (21:21)
[2023-12-04] VITALS (29 sets, daily range): BP systolic 126–195; BP diastolic 75–100; PULSE 70–103; RESP 15–28; TEMP 35.8–36.4; O2SAT 95–100
[2023-12-04] MEDS: Labetalol (Prefilled) 20 MG/4 ML 10 MG IV ×2 (01:21→06:12)
[2023-12-04] MEDS: hydrALAZINE 20 MG/ML Vial 10 MG IV ×2 (02:10→20:38)
[2023-12-04 04:34] LABS: Absolute Lymphocyte Count 0.54 X10^3/uL (0.83-4.51); Basophil# 0.01 X10^3/uL; Basophil% 0.1 % (0-1); Hematocrit 33.2 % (37-47); Hemoglobin 10.7 g/dL (12.0-15.0); Lymphocyte # 0.54 X10^3/ul (0.83-4.51); Lymphocyte % 4.1 % (19-41); Mean Corp Hgb Conc 32.2 g/dL (32-36); Mean Corpuscular Hgb 28.6 pg (27.0-32.0); Mean Corpuscular Volume 88.8 fL (81-99); Mean Platelet Vol. 9.4 fl (6.2-12.0); Monocyte# 0.41 X10^3/uL; Monocyte% 3.1 % (0-10); NRBC Flagged by Analyzer 0 % (0-5); Neutrophil # 11.96 X10^3/uL (2.7-7.7); Neutrophil % 91.9 % (47-70); POSITIVE DIFFERENTIAL YES; Platelet Count 379 K/mm3 (150-450); RBC Distribution Width SD 51.7 fl (35.1-43.9); Red Blood Count 3.74 M/mm3 (4.2-5.4)
[2023-12-04 04:49] LABS: Anion Gap 10 (5-15); BUN 22 mg/dL (7-18); Calcium,Total 8.8 mg/dL (8.5-10.1); Chloride 112 mmol/L (98-107); Creatinine, Serum 1.22 mg/dL (0.55-1.02); EST Glomerular Filtration Rate 46 mL/min (>60); Est Glom Filt Rate - Afr Amer 56 mL/min (>60); Estimated Creatinine Clearance 38.47 ml/min; Glucose 160 mg/dL (74-106); Potassium 4.4 mmol/L (3.5-5.1); Sodium Level 143 mmol/L (136-145)
[2023-12-04 04:50] LABS: Differential Indicated SCAN CRITERIA MET
[2023-12-04 05:07] LABS: Differential Comment SCANNED
--- NOTE | 2023-12-04 07:15 | EX.PCM.CONCC ---
Assessment & Plan Assessment/Plan (1) Weakness: PLAN: Plan RECOMMENDATIONS: 1. Continue high-dose steroids per neurology. 2. Obtain MRI brain. 3. Transition from ceftriaxone to Unasyn over concerns for aspiration. 4. Await results of EEG. 5. Maintain n.p.o. status for now. IMPRESSIONS: 1. Progressive weakness and encephalopathy Clinical concern for underlying MS flare. Low suspicion for underlying urinary tract source of infection. The patient was initiated on high-dose steroids by neurology. CT imaging of the head has not provided any additional insight thus far. There are tentative plans for MRI brain today. Liver function, ammonia and TSH are within normal limits. Given the reported concerns for potential aspiration event, we will transition the patient to Unasyn. Plan to continue current supportive care. At the present time, the patient is protecting her airway. 2. History of paroxysmal atrial fibrillation/hypothyroidism/peripheral vascular disease/psoriatic arthritis Complicates care, management, recovery and prognosis. Continue current supportive care as noted above. This note was generated with [employer] dictation software. It may contain incorrect words, spelling, and punctuation that were not noted in checking the note before signing. HPI Consult Data Date of Consult: 12/04/23 HPI Narrative Reason for Consultation: Mental status change HPI Narrative: The patient is a 68-year-old female, with a history as outlined below, who presented to the emergency department via EMS on December 02 with generalized weakness and dizziness. The patient has a known history of MS, coronary artery disease, atrial fibrillation, carotid artery stenosis, prior brain aneurysm and psoriatic arthritis. On presentation to the emergency department, the patient was noted to be afebrile but was notably hypertensive with a blood pressure of 201/91 mmHg. She was maintaining appropriate oxygen saturations on room air. Laboratory evaluation revealed no evidence of a leukocytosis. Chemistry profile was notable for a creatinine of 1.13. Glucose was normal at 109. Urine analysis was unremarkable. The patient did have a positive influenza screen on November 15. Initial CT head was unrevealing for any acute intracranial abnormality. Neurology consultation was obtained with medical history concerning for potential MS exacerbation. An MRI brain was ordered and the patient was initiated on 1 g of IV steroids for 3 days. She was maintained on her home baclofen 20 mg every 6 hours. The patient is also being maintained on Eliquis, Plavix, Neurontin and antimicrobials. [facility] Medical History Angina pectoris Bilateral carotid artery stenosis Chronic pain syndrome Coronary artery disease Essential (primary) hypertension Fatty liver GERD (gastroesophageal reflux disease) Goiter History of transient ischemic attack (TIA) HLD (hyperlipidemia) Hypothyroidism Influenza A Multiple sclerosis Nonobstructive atherosclerosis of coronary artery Nonsustained paroxysmal supraventricular tachycardia Osteoarthritis Osteoporosis Peripheral vascular occlusive disease Psoriasis Psoriatic arthritis Smoker Thrombocytopenia TIA (transient ischemic attack) Home Medications cholecalciferol (vitamin D3) 125 mcg (5,000 unit) tablet 5,000 unit PO DAILY supplement 12/16/13 [History Last Taken 12/01/23] gabapentin 800 mg tablet 800 mg PO TID MS 07/16/18 [History Last Taken 12/01/23] baclofen 20 mg tablet 20 mg PO Q8H MS 08/11/21 [History Last Taken 12/01/23] levothyroxine 50 mcg tablet 50 mcg PO DAILY thyroid 08/11/21 [History Last Taken 12/01/23] oxycodone 10 mg tablet 10 mg PO Q6H PRN pain 05/24/23 [History Last Taken 12/01/23] clopidogrel 75 mg tablet 75 mg PO DAILY dose increased, pt is OUT of med, please fill #90 TABLETS 06/01/23 [Rx Last Taken 11/18/23] lisinopril 5 mg tablet 5 mg PO DAILY blood pressure #30 tabs 11/02/23 [Rx Last Taken 12/01/23] dextromethorphan-guaifenesin ER 60 mg-1,200 mg tab,extend release,12hr (Mucinex DM) 1 tab PO Q12H cough/congest 7 days #14 tabs 11/16/23 [Rx Last Taken 12/01/23] apixaban 5 mg tablet (Eliquis) 5 mg PO BID 30 days #60 tabs 11/21/23 [Rx Last Taken 12/01/23] metoprolol tartrate 25 mg tablet 12.5 mg (1/2 x 25 mg) PO BID 30 days #30 tabs 11/21/23 [Rx Last Taken 12/01/23] Allergy/AdvReac Type Severity Reaction Status Date / Time colestipol [From Colestid] Allergy Mild unknown Verified 11/26/23 12:47 pregabalin [From Lyrica] Allergy Mild Hives Verified 11/26/23 12:47 amitriptyline Allergy Rash Verified 11/26/23 12:47 temazepam [From Restoril] AdvReac Mild Nausea/Vom/ Verified 11/26/23 12:47 Diarrhea Antihistamines - Alkylamine AdvReac Nausea/Vom/ Verified 11/26/23 12:47 Diarrhea Antihistamines - Ethanolamine AdvReac Nausea/Vom/ Verified 11/26/23 12:47 Diarrhea Antihistamines - AdvReac Nausea/Vom/ Verified 11/26/23 12:47 Ethylenediamine Diarrhea Antihistamines - Piperazine AdvReac Nausea/Vom/ Verified 11/26/23 12:47 Diarrhea Antihistamines - Piperidine AdvReac Nausea/Vom/ Verified 11/26/23 12:47 Diarrhea aspirin AdvReac I'M ON Verified 11/26/23 12:47 BLOOD THINNERS codeine AdvReac Nausea Verified 11/26/23 12:47 Corticosteroids AdvReac Upset Verified 11/26/23 12:47 (Glucocorticoids) Stomach morphine AdvReac Nausea Verified 11/26/23 12:47 Kydgdbs-SXP-QlX Reductase AdvReac Nausea Verified 11/26/23 12:47 Inhibitor [Qazyhmz-Mks-Kfq Reductase Inhibitor] Family History Mother Cancer CAD (coronary artery disease) Brain tumor Grandfather CVA (cerebral vascular accident) Father CAD (coronary artery disease) Ruptured abdominal aortic aneurysm (AAA) Sister Brain aneurysm Surgical History Brain aneurysm Fracture of right lower leg H/O hemorrhoidectomy H/O: History of angioplasty of peripheral vessel History of angioplasty of peripheral vessel (07/11/19) History of appendectomy History of section History of cholecystectomy History of hemorrhoidectomy History of hysterectomy History of left breast biopsy History of left heart catheterization (01/25/15) History of left-sided carotid endarterectomy History of partial thyroidectomy (11/30/05) History of right-sided carotid endarterectomy S/P coil embolization of cerebral aneurysm S/P hysterectomy S/P insertion of iliac artery stent S/P thyroidectomy Stenosis of left subclavian artery Social History household members: none Smoking Status: Current every day smoker tobacco type: cigarettes alcohol intake: never caffeine: Yes Type: coffee and tea ROS Review of Systems ROS Unobtainable: due to mental status Physical Exam Const alert Constitutional Narrative: Audibly moaning with incomprehensible language HEENT normocephalic and head/scalp atraumatic Eyes conjunctivae normal Neck supple General: trachea midline Chest inspection of chest normal Resp normal respiratory effort Effort and Inspection: tachypneic Auscultation: diminished lung sounds Cardio regular rate and regular rhythm GI normal to inspection, nondistended, normoactive bowel sounds Extremity no clubbing, cyanosis or edema Skin no rashes or lesions noted Neuro Neuro Narrative: The patient is moving her extremities spontaneously but will not engage in conversation or answer questions. Psych Activity / Motor Behavior: restless Lab / Micro Data 12/04/23 04:25 12/04/23 04:25 Labs: Laboratory Results - last 24 hr 12/03/23 05:40: Differential Comment SCANNED 12/03/23 07:58: POC Glucose 175 H 12/04/23 04:25: WBC 13.0 H, RBC 3.74 L, Hgb 10.7 L, Hct 33.2 L, MCV 88.8, MCH 28.6, MCHC 32.2, RDW Std Deviation 51.7 H, RDW Coeff of David 16.0 H, Plt Count 379, MPV 9.4, Immature Gran % (Auto) 0.800, Neut % (Auto) 91.9 H, Lymph % (Auto) 4.1 L, [place] % (Auto) 3.1, Eos % (Auto) 0.0, Baso % (Auto) 0.1, Absolute Neuts (auto) 12.0 H, Absolute Lymphs (auto) 0.54 L, Nucleated RBC % 0, Differential Comment SCANNED, Sodium 143, Potassium 4.4, Chloride 112 H, Carbon Dioxide 21.0, Anion Gap 10, BUN 22 H, Creatinine 1.22 H, Estim Creat Clear Calc 38.47, Est GFR (MDRD) Af Amer 56 L, Est GFR (MDRD) Non-Af 46 L, BUN/Creatinine Ratio 18.0, Glucose 160 H, Calcium 8.8 Micro: Microbiology 12/02/23 10:27 Urine, Catheterized Urine Culture - Preliminary Culture exhibits no growth. ABG Data ABG results: ABG 12/03/23 12/03/23 14:58 21:15 Specimen Type ART ART Sample Site L Radial L Radial pH 7.43 7.40 Bicarbonate Actual 21.6 L 21.5 L Total CO2 23 23 Base Excess -3 L -3 L O2 Saturation 95 97 O2 % 5.0 1.0 ABG pCO2 32.5 L 34.8 L ABG pO2 73 L 93 Adrián Test Positive Positive O2 Delivery Device Cannula Cannula Vent Mode Not entered Not entered Rhythm Strip Rhythm Strip: Sinus Rhythm Rate: 55 Ectopy: None Imagaing Radiology Impression Brain CT 12/03/23 08:01 IMPRESSION: Chronic involutional changes of the brain. Stable examination. N.B. : The above Results were Read Back by Jovon Freitas MD to Sachin Murillo MD, and understanding confirmed on 12/03/2023 08:25:43 (ET). Electronically Signed: Jovon Freitas MD at 8:27 EST , ADDENDUM: 12/03/23 0833 IMPRESSION: Chronic involutional changes of the brain. Stable examination. N.B. : The above Results were Read Back by Jovon Freitas MD to Sachin Murillo MD, and understanding confirmed on 12/03/2023 08:25:43 (ET). Electronically Signed: Jovon Freitas MD at 8:27 EST , Chest X-Ray 12/03/23 14:35 IMPRESSION: Minimal residual increased markings at the right lung base. No other abnormality is seen. Electronically Signed: Jovon Freitas MD at 14:59 EST , Head/Neck CTA 12/03/23 21:10 IMPRESSION: CTA neck: Patent graft between the cephalad aspect of the bilateral common carotid artery. Mild atherosclerotic disease of the left carotid bulb and proximal left internal carotid artery. No significant stenosis, occlusion or dissection involving the bilateral carotid and vertebral arteries. CTA brain: No intracranial significant stenosis, occlusion or aneurysm. Electronically Signed: Charmaine Grant MD at 22:18 EST , Capacity Legal Director Of Clinical Applications Reflex Medical hold order details:: IF a medical hold is selected below, a suggested order for a MEDICAL HOLD will reflex upon signing the document. Next of kin: [place] law dictates a PRIORITY LIST for identifying legal decision-maker/legal next of kin in the following order (LNOK): 1st: The patient?s legal guardian, if any 2nd: The patient's spouse (if status is questionable, consult Risk Management) 3rd: The patient?s adult child(blaine) (majority, if multiple children) 4th: The patient?s parents 5th: The patient?s adult siblings (majority, if multiple children siblings) Charges/Coding Visit Charges Inpatient E&M: 72290 Init Hosp L3
[2023-12-04 08:14] LABS: AST(SGOT) 17 U/L (15-37); Alanine Aminotransfer ALT/SGPT 15 U/L (13-56); Albumin, Serum 2.7 g/dL (3.2-5.0); Alkaline Phosphatase 127 U/L (45-117); Bilirubin, Direct 0.11 mg/dL (0.00-0.30); Globulin 3.7 g/dL (2.2-4.2); Protein, Total 6.4 g/dL (6.4-8.2); Thyroid Stim Hormone (TSH) 1.65 uIU/mL (0.358-3.74)
--- NOTE | 2023-12-04 09:53 | PN.HOSP_ITS ---
Subjective Subjective Was transferred to the ICU overnight no major changes from baseline from yesterday while in PCU. Unsure as to the etiology of her encephalopathy, nurse reports today that while suctioning her she woke up and was alert and oriented x 3 but then as soon as suctioning was done went back to the groaning and gurgling Objective Data Objective Data Vital Signs: Vital Signs Temp Pulse Resp BP Pulse Ox O2 Del Method O2 Flow Rate 96.5 F L 79 19 H 178/83 H 98 Room Air 1 12/04/23 09:00 12/04/23 09:00 12/04/23 09:00 12/04/23 09:00 12/04/23 09:00 12/04/23 09:00 12/04/23 07:00 Oxygen Flow Rate (L/min) 1 Oxygen Delivery Method Room Air Weight: 123 lb 7.342 oz Body Mass Index (BMI) 20.5 Intake & Output: Intake and Output for Last 24 Hours 12/03/23 12/04/23 12/05/23 03:59 03:59 03:59 Intake Total 1406 / 1406 1166 / 1166 Balance 1406 / 1406 1166 / 1166 Lab / Micro Data 12/04/23 04:25 12/04/23 04:25 Labs: Laboratory Results - last 24 hr 12/04/23 04:25: WBC 13.0 H, RBC 3.74 L, Hgb 10.7 L, Hct 33.2 L, MCV 88.8, MCH 28.6, MCHC 32.2, RDW Std Deviation 51.7 H, RDW Coeff of David 16.0 H, Plt Count 379, MPV 9.4, Immature Gran % (Auto) 0.800, Neut % (Auto) 91.9 H, Lymph % (Auto) 4.1 L, [place] % (Auto) 3.1, Eos % (Auto) 0.0, Baso % (Auto) 0.1, Absolute Neuts (auto) 12.0 H, Absolute Lymphs (auto) 0.54 L, Nucleated RBC % 0, Differential Comment SCANNED, Sodium 143, Potassium 4.4, Chloride 112 H, Carbon Dioxide 21.0, Anion Gap 10, BUN 22 H, Creatinine 1.22 H, Estim Creat Clear Calc 38.47, Est GFR (MDRD) Af Amer 56 L, Est GFR (MDRD) Non-Af 46 L, BUN/Creatinine Ratio 18.0, Glucose 160 H, Calcium 8.8, Total Bilirubin 0.20, Direct Bilirubin 0.11, AST 17, ALT 15, Alkaline Phosphatase 127 H, Total Protein 6.4, Albumin 2.7 L, Globulin 3.7, TSH 1.65 12/04/23 08:40: Ammonia 13.0 Micro: Microbiology 12/02/23 11:38 Blood Culture (Wb) - Anticubital Left Blood Culture - Preliminary No growth in 48 hours. 12/02/23 10:27 Urine, Catheterized Urine Culture - Final Culture exhibits no growth. 12/02/23 07:37 Mucosa - Nose SARS-CoV-2, Influenza & RSV (PCR) - Final ABG Data ABG results: ABG 12/03/23 12/03/23 14:58 21:15 Specimen Type ART ART Sample Site L Radial L Radial pH 7.43 7.40 Bicarbonate Actual 21.6 L 21.5 L Total CO2 23 23 Base Excess -3 L -3 L O2 Saturation 95 97 O2 % 5.0 1.0 ABG pCO2 32.5 L 34.8 L ABG pO2 73 L 93 Adrián Test Positive Positive O2 Delivery Device Cannula Cannula Vent Mode Not entered Not entered Radiography Diagnostic Testing: Radiology Impression Chest X-Ray 12/03/23 14:35 IMPRESSION: Minimal residual increased markings at the right lung base. No other abnormality is seen. Electronically Signed: Jovon Freitas MD at 14:59 EST , Head/Neck CTA 12/03/23 21:10 IMPRESSION: CTA neck: Patent graft between the cephalad aspect of the bilateral common carotid artery. Mild atherosclerotic disease of the left carotid bulb and proximal left internal carotid artery. No significant stenosis, occlusion or dissection involving the bilateral carotid and vertebral arteries. CTA brain: No intracranial significant stenosis, occlusion or aneurysm. Electronically Signed: Charmaine Grant MD at 22:18 EST , Rhythm Strip Rhythm Strip: Sinus Rhythm Rate: 55 Ectopy: None Physical Exam Narrative General: Drowsy but alert, does not communicate and follows commands intermittently HEENT: Atraumatic, PERRLA, EOMI, Normocephalic Oral: Moist Mucosa Neck: Supple, No JVD Lungs: Diminished, Normal air movement, No rhonchi, No wheeze, No rales Cardiovascular: Regular rate, Regular Rhythm, Normal S1, Normal S2, No murmurs Abdomen: Soft, Non Tender, Non-Distended, No Hepato-splenomegaly Extremities: No edema, Capillary Refill Less than 3 Seconds Skin: No rashes, No breakdown Musculoskeletal: No Tenderness to Palpation of Joints or Extremities Neurological: Moves all extremities, possible left facial droop, encephalopathic does not follow commands Psych/Mental Status: Flat Assessment & Plan Assessment/Plan (1) Weakness: PLAN: Plan 1. Progressive generalized weakness in the setting of MS with hypertensive urgency/aspiration pneumonia ? Differential diagnoses include patient possible cystitis versus MS flareup. P teo is to treat the underlying suspected cystitis and if no improvement patient to be initiated on steroids consult subsequently placed to teleneurology 12/03/2023: Stroke alert was called for change though it is unclear as to what her baseline has been since admission with a UTI and generalized weakness will attempt to get an MRI without contrast to evaluate for possible stroke in the meantime she is significantly hypertensive and she was given a dose of labetalol in the CT scanner this will be made every 4 as needed as well as the hydralazine she has on board currently receiving 1 g of Solu-Medrol daily per recommendations neurology 12/04/2023: Given her behaviors may need to be intubated for an MRI will await neurology evaluation of her this afternoon. Blood cultures and urine cultures a re negative. She did have an aspiration event yesterday when she went for the MRI where she laid flat she has a white count today that is likely related to her 1 g of Solu-Medrol daily however given her aspiration event yesterday she was started on Unasyn. EEG is pending. She had a CTA of the head and neck overnight which is unremarkable 2. Paroxysmal A-fib ? Rate controlled on systemic anticoagulation with apixaban continue 3. Essential hypertension ? Patient blood pressure control not optimal due to continuing home meds added hydralazine as needed. Blood pressure greater than 160 12/03/2023: Have to broaden her blood pressure medications to try to get better control unclear if she is consistently taking her medications at home 7. Tobacco dependence - Counseled on cessation, offered nicotine patch for tobacco cravings 8. Hypothyroidism - Patient is on levothyroxine home dose continued 9. Peripheral arterial disease ? With history of iliac stent As well as bilateral carotid endarterectomy. Patient is on antiplatelet therapy 10. Psoriatic arthritis ? Patient not on any DMARDs, will continue with pain meds as needed DVT: Eliquis Capacity Legal Bilingual [employer] Reflex Medical hold order details:: IF a medical hold is selected below, a suggested order for a MEDICAL HOLD will reflex upon signing the document. Next of kin: [place] law dictates a PRIORITY LIST for identifying legal decision-maker/legal next of kin in the following order (LNOK): 1st: The patient?s legal guardian, if any 2nd: The patient's spouse (if status is questionable, consult Risk Management) 3rd: The patient?s adult child(blaine) (majority, if multiple children) 4th: The patient?s parents 5th: The patient?s adult siblings (majority, if multiple children siblings) Charges/Coding Visit Charges Inpatient E&M: 69232 Subs Hosp L2
[2023-12-04] MEDS: MethylPREDNISolone 1,000 MG in 0.9% Normal Saline (100mL Bag) 100 ML 100 MG IV (09:57)
[2023-12-04] MEDS: 0.9% Normal Saline (250mL Bag) 250 ML 15 ML IV (10:06)
--- NOTE | 2023-12-04 11:53 | CHAPLAIN ---
Type of Pastoral Visit _x__ Initial Visit ___ Follow-up Visit ___ On-call Visit ___ General Patient Visit ___ Spiritual Assessment ___ Family Conference ___ Bereavement ___ Rapid Response ___ Code Blue ___ Other (describe below) Pastoral Care Referral From _x__ Patient ___ Family ___ Nurse ___ Physician ___ Credit Operations Processor ___ Manager Philosophy ___ Other (describe below) Sacrament/Intervention ___ Active listening ___ Anointing ___ Tenriism ___ Bereavement ___ Communion ___ Kaci exploration ___ ___ Life review _x__ Prayer ___ Reconciliation ___ Sacrament of Sick _x__ Supportive presence ___ Wedding ___ Other (describe below) Pastoral Comments 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
[2023-12-04] MEDS: Ampicillin/Sulbactam 3 GM in 0.9% Normal Saline (100mL MB+) 100 ML IV ×2 (13:01→20:34)
[2023-12-04] MEDS: Lidocaine 4% 50 ML Bottle TOPICAL (17:41)
--- NOTE | 2023-12-04 18:13 | RAD_ITS ---
STUDY: X-RAY - ABDOMEN/PELVIS REASON FOR EXAM: Female, 68 years old. NG tube placement TECHNIQUE: Single AP view of the abdomen / pelvis. COMPARISON: None. FINDINGS: Nasogastric tube coiled in the midline with the tip likely in the fundus of the stomach. There is an unremarkable bowel gas pattern. The visualized liver, spleen and kidneys are grossly normal in size and morphology. Normal soft tissue structures. Normal visualized osseous structures. RAD/Abdomen Single View IMPRESSION: Nasogastric tube coiled in the midline with tip likely in the fundus of the stomach. No bowel obstruction. Electronically Signed: Elijah Pollack MD at 18:30 EST ,
[2023-12-04] MEDS: Gabapentin 800 MG Tablet GT (18:50)
--- NOTE | 2023-12-04 20:15 | NEURO.PNOTE ---
Assessment and Plan: Neuro Assessment/Plan ADY WALLER is a 68 F with a past medical history of MS, being evaluated by Teleneurology for possible MS exacerbation. Symptoms do seem in line with possible exacerbation vs pseudoexacerbation. Given symptoms started several days after getting the flu and when she was improving, believe she is likely does have some exacerbation. Will treat empirically, but also obtain MRI to eval the disease progression and any new lesions. If there are new and active demyelinating lesions then would need to increase duration of steroids and continue monitoring in order to assess improvement. Subsequently patient developed confusion, severe headache and then aspiration pneumonia with oral secretions. Cannot rule out some steroid psychosis. On her current exam, there is a embellished and functional component to it and patient appears delirious. EEG has been unremarkable event for encephalopathy. - repeat CTH in AM - serial EEG routine tomorrow - s/p steroid burst for possible MS exacerbation, can discontinue this - hold on MRI as pt likely cannot tolerate - delirium precautions as possible - treatment pneumonia per primary team. I personally attended this patient and spent a total time of 30 minutes evaluating this patient including clinical assessment, review of chart, medical history imaging, and determining appropriate treatment and workup. Subject: Neurology Subjective 12/03: Pt suddenly confused and altered in the AM on 12/03, seen by telestroke. On eval 12/03 she was complaining about headache, withdrew in b/l LE and able to answer some yes/no questions. 12/04: had EEG this AM. Since then has begun to have jerking movements and tremors and staring episodes. She has gotten 3 doses of steroids. NIHSS NIHSS Nursing Documentation NIHSS Nursing Documentation: NIHSS: Ischemic Stroke/TIA Start: 12/03/23 09:41 Freq: [id number] Status: Active Protocol: Activity Type Activity Date Activity User E-sign Co-sign Detail Recorded Client Recorded Date Recorded By Document 12/04/23 17:29 [facility] Desktop 12/04/23 17:30 [facility] 12/04/23 17:29 NIH Stroke Scale [NIHSS] A score of 0 is normal or asymptomatic . Total possible score is 42. Inpatient: RN or Physician to activate a stroke alert for onset of new stroke symptoms or with NIHSS increase >/= 3 points. Following change in neurological status, NIHSS will be performed per physician order or more frequently PRN. -1a. Level of Consciousness Alert; keenly responsive -1b. LOC Questions Answers BOTH questions correctly. -1c. LOC Commands Performs both tasks correctly . -2. Best Gaze Normal -3. Visual No visual loss -4. Facial Palsy Minor paralysis (flattened nasolabial fold , asymmetry on smiling) -5a. Left Arm No drift; arm holds 90 (or 45 ) degrees for full 10 seconds -5b. Right Arm Drift; arm drifts downward but doesn?t hit the bed -6a. Left Leg No drift; leg holds 30-degree position for full 5 seconds -6b. Right Leg Drift; leg falls by the end of 5- seconds, but does not hit bed -7. Limb Ataxia Present in 1 limb -8. Sensory Normal; no sensory loss -9. Best Language No aphasia; normal -10. Dysarthria Mild-to- moderate dysarthria; -11. Extinction and Inattention No abnormality -Total 5 Query Text:A score of 0 is normal or asymptomatic. Total possible score is 42 . ED: Notify Physician for NIHSS increase by > / = 3 points. Inpatient: RN or Physician to activate a stroke alert for NIHSS increase of > / = 3 points. EEG Results Procedure Details EEG Procedure Details: alert state, a posterior dominant rhythm was a symmetric, reactive, well-modulated 7-8 Hz with a normal frequency-amplitude gradient.?? During drowsiness, there was attenuation of the waking background. Stage II sleep architecture was not visualized. ? Activation Procedures: Photic stimulation induced normal physiological driving. Sporadic Epileptiform Discharges: none Focal slow activity: none Rhythmic or Periodic activity: ?none ? Seizures: none Patient Events: none EEG DIAGNOSIS Normal EEG ? CLINICAL INTERPRETATION This routine EEG is normal. Objective Data Objective Data Vital Signs: Vital Signs Temp Pulse Resp BP Pulse Ox O2 Del Method O2 Flow Rate 97.0 F L 92 20 H 176/92 H 96 Room Air 1 12/04/23 18:00 12/04/23 19:00 12/04/23 19:00 12/04/23 19:00 12/04/23 19:00 12/04/23 19:00 12/04/23 07:00 Oxygen Flow Rate (L/min) 1 Oxygen Delivery Method Room Air Weight: 56 kg Body Mass Index (BMI) 20.5 Intake & Output: Intake and Output for Last 24 Hours 12/02/23 12/03/23 12/04/23 23:59 23:59 23:59 Intake Total 406 / 406 2166 / 2166 228 / 228 Output Total 200 / 200 Balance 406 / 406 2166 / 2166 28 / 28 Lab / Micro Data 12/04/23 04:25 12/04/23 04:25 Labs: Laboratory Results - last 24 hr 12/04/23 04:25: WBC 13.0 H, RBC 3.74 L, Hgb 10.7 L, Hct 33.2 L, MCV 88.8, MCH 28.6, MCHC 32.2, RDW Std Deviation 51.7 H, RDW Coeff of David 16.0 H, Plt Count 379, MPV 9.4, Immature Gran % (Auto) 0.800, Neut % (Auto) 91.9 H, Lymph % (Auto) 4.1 L, [place] % (Auto) 3.1, Eos % (Auto) 0.0, Baso % (Auto) 0.1, Absolute Neuts (auto) 12.0 H, Absolute Lymphs (auto) 0.54 L, Nucleated RBC % 0, Differential Comment SCANNED, Sodium 143, Potassium 4.4, Chloride 112 H, Carbon Dioxide 21.0, Anion Gap 10, BUN 22 H, Creatinine 1.22 H, Estim Creat Clear Calc 38.47, Est GFR (MDRD) Af Amer 56 L, Est GFR (MDRD) Non-Af 46 L, BUN/Creatinine Ratio 18.0, Glucose 160 H, Calcium 8.8, Total Bilirubin 0.20, Direct Bilirubin 0.11, AST 17, ALT 15, Alkaline Phosphatase 127 H, Total Protein 6.4, Albumin 2.7 L, Globulin 3.7, TSH 1.65 12/04/23 08:40: Ammonia 13.0 Micro: Microbiology 12/02/23 11:38 Blood Culture (Wb) - Anticubital Left Blood Culture - Preliminary No growth in 48 hours. 12/02/23 10:27 Urine, Catheterized Urine Culture - Final Culture exhibits no growth. 12/02/23 07:37 Mucosa - Nose SARS-CoV-2, Influenza & RSV (PCR) - Final ABG Data ABG results: ABG 12/03/23 21:15 Specimen Type ART Sample Site L Radial pH 7.40 Bicarbonate Actual 21.5 L Total CO2 23 Base Excess -3 L O2 Saturation 97 O2 % 1.0 ABG pCO2 34.8 L ABG pO2 93 Adrián Test Positive O2 Delivery Device Cannula Vent Mode Not entered Radiography Diagnostic Testing: Radiology Impression Head/Neck CTA 12/03/23 21:10 IMPRESSION: CTA neck: Patent graft between the cephalad aspect of the bilateral common carotid artery. Mild atherosclerotic disease of the left carotid bulb and proximal left internal carotid artery. No significant stenosis, occlusion or dissection involving the bilateral carotid and vertebral arteries. CTA brain: No intracranial significant stenosis, occlusion or aneurysm. Electronically Signed: Charmaine Grant MD at 22:18 EST , KUB X-Ray 12/04/23 18:13 IMPRESSION: Nasogastric tube coiled in the midline with tip likely in the fundus of the stomach. No bowel obstruction. Electronically Signed: Elijah Pollack MD at 18:30 EST , Rhythm Strip Rhythm Strip: Sinus Rhythm Rate: 55 Ectopy: None Physical Exam Narrative -?NEURO: -? Mental Status: oriented to situation, time, and place. Intermittently appears confused -? Language: speech is slightly dysarthric.? Naming, repetition, fluency, and comprehension intact. -? Cranial Nerves: eomi, R pupil >L pupil, R pupil poorly reactive. R nasolabial fold flattening UE with R arm drift, LE with R leg drift. Pt with tremors b/l and then she will jerk her head to the L and be midline again. There are no myoclonic movements, the is no post-ictal phase noted
[2023-12-04] MEDS: Metoprolol Tartrate 25 MG Tablet 12.5 MG GT (20:34)
[2023-12-04] MEDS: APIXABAN 5 MG TABLET GT (20:34)
[2023-12-04] MEDS: oxyCODONE 5 MG Tablet 10 MG GT (23:23)
[2023-12-04] MEDS: Baclofen 10 MG Tablet 20 MG GT (23:23)
[2023-12-05] VITALS (30 sets, daily range): BP systolic 118–201; BP diastolic 67–86; PULSE 54–87; RESP 9–18; TEMP 36–37.1; O2SAT 95–100
[2023-12-05] MEDS: oxyCODONE 5 MG Tablet 10 MG GT ×3 (03:44→14:12)
[2023-12-05 05:25] LABS: Absolute Lymphocyte Count 0.43 X10^3/uL (0.83-4.51); Absolute Neutrophil Count 7.6 X10^3/uL (2.0-7.7); Basophil# 0.01 X10^3/uL; Basophil% 0.1 % (0-1); Hematocrit 27.9 % (37-47); Hemoglobin 8.9 g/dL (12.0-15.0); Lymphocyte # 0.43 X10^3/ul (0.83-4.51); Lymphocyte % 5.1 % (19-41); Mean Corp Hgb Conc 31.9 g/dL (32-36); Mean Corpuscular Hgb 28.6 pg (27.0-32.0); Mean Corpuscular Volume 89.7 fL (81-99); Mean Platelet Vol. 9.4 fl (6.2-12.0); Monocyte# 0.31 X10^3/uL; Monocyte% 3.7 % (0-10); NRBC Flagged by Analyzer 0 % (0-5); Neutrophil # 7.62 X10^3/uL (2.7-7.7); Neutrophil % 90.5 % (47-70); POSITIVE DIFFERENTIAL YES; Platelet Count 277 K/mm3 (150-450); RBC Distribution Width CV 16.6 % (11.6-14.6); RBC Distribution Width SD 53.8 fl (35.1-43.9); Red Blood Count 3.11 M/mm3 (4.2-5.4); White Blood Count 8.4 K/mm3 (4.4-11.0)
[2023-12-05 05:28] LABS: Differential Indicated SCAN CRITERIA MET
[2023-12-05 05:41] LABS: Anion Gap 7 (5-15); BUN 31 mg/dL (7-18); BUN/Creat Ratio 26.5 RATIO (10-20); Calcium,Total 8.2 mg/dL (8.5-10.1); Chloride 114 mmol/L (98-107); Creatinine, Serum 1.17 mg/dL (0.55-1.02); EST Glomerular Filtration Rate 49 mL/min (>60); Est Glom Filt Rate - Afr Amer 59 mL/min (>60); Estimated Creatinine Clearance 40.12 ml/min; Glucose 122 mg/dL (74-106); Potassium 4.1 mmol/L (3.5-5.1); Sodium Level 146 mmol/L (136-145)
--- NOTE | 2023-12-05 05:55 | CT_ITS ---
EXAM: CT HEAD WITHOUT INTRAVENOUS CONTRAST CLINICAL INDICATION: CVA r/o cannot tolerate MRI CVA r/o cannot tolerate MRI TECHNIQUE: Multiple axial images were obtained of the head without intravenous contrast. This CT exam was performed using one or more of the following dose reduction techniques: automated exposure control, adjustment of the mA and/or kV according to patient size, and/or use of iterative reconstruction technique. RADIATION DOSE: CTDIvol = 44.99 mGy, DLP = 796.11 mGy-cm COMPARISON: CT scan brain 12/03/2023. FINDINGS: BRAIN AND EXTRA-AXIAL SPACES: There are microvascular changes in supratentorial white matter. There is mild cerebral atrophy. No intra- or extra-axial hemorrhage. No evidence of acute infarct. No intracranial mass or mass effect. There is preservation of the patel/white matter interface. Posterior fossa structures are unremarkable. No hydrocephalus. Basal cisterns are patent. BONES/JOINTS: Unremarkable. No discrete lytic or blastic abnormalities. VASCULATURE: There is a collection of embolization coils in the anterior midline suprasellar cistern, probably representing previous treatment of an aneurysm. There are associated x-ray beam hardening artifacts at this level. There is atherosclerotic calcification of the cavernous carotid arteries. SINUSES: Unremarkable as visualized. Clear. MASTOID AIR CELLS: Unremarkable. Clear. ORBITS: Visualized globes, extraocular muscles, optic nerves and retrobulbar fat appear unremarkable. CT/Brain/Head without Contrast IMPRESSION: 1. Embolization coils, suggesting previous treatment of aneurysm. 2. Mild chronic involutional changes of the brain. 3. No demonstrated acute intracranial process. Electronically Signed: Enzo Bennett MD at 7:40 EST ,
[2023-12-05] MEDS: Ampicillin/Sulbactam 3 GM in 0.9% Normal Saline (100mL MB+) 100 ML IV ×3 (05:57→22:09)
[2023-12-05] MEDS: Baclofen 10 MG Tablet 20 MG GT ×2 (05:58→11:49)
[2023-12-05] MEDS: Levothyroxine 50 MCG Tablet GT (05:58)
[2023-12-05] MEDS: hydrALAZINE 20 MG/ML Vial 10 MG IV (07:19)
--- NOTE | 2023-12-05 07:37 | PN.CC_ITS ---
Assessment & Plan Assessment/Plan (1) Weakness: PLAN: Plan RECOMMENDATIONS: 1. Continue high-dose steroids. 2. Additional workup and intervention per neurology recommendations. 3. Continue Unasyn over concerns for aspiration. 4. Dietary advancement as tolerated. 5. We will sign off from a pulmonary/critical care perspective. Please call with any additional questions. IMPRESSIONS: 1. Progressive weakness and encephalopathy Clinical concern for underlying MS flare. Low suspicion for underlying urinary tract source of infection. The patient was initiated on high-dose steroids by neurology. CT imaging of the head has not provided any additional insight thus far. Liver function, ammonia and TSH are within normal limits. Given the reported concerns for potential aspiration event, will continue empiric Unasyn. Plan to continue current supportive care. The patient appears significantly improved today from a neurologic perspective. 2. History of paroxysmal atrial fibrillation/hypothyroidism/peripheral vascular disease/psoriatic arthritis Complicates care, management, recovery and prognosis. Continue current supportive care as noted above. This note was generated with [employer] dictation software. It may contain incorrect words, spelling, and punctuation that were not noted in checking the note before signing. Subjective Subjective The patient was seen and examined at the bedside this morning. Events from the last 24 hours have been reviewed. The patient is currently afebrile, hemodynamically stable and maintaining appropriate oxygen saturations on room air. The patient is completely lucid, cooperative and appropriately interactive this morning. She is alert and oriented to person place and time. She does not recall the events that transpired yesterday. Objective Data Objective Data The patient's most recent lab work, culture data and imaging studies have all been personally reviewed. Vital Signs: Vital Signs Temp Pulse Resp BP Pulse Ox O2 Del Method O2 Flow Rate 97.4 F L 74 15 179/76 H 98 Room Air 1 12/05/23 04:00 12/05/23 07:19 12/05/23 07:00 12/05/23 07:19 12/05/23 07:00 12/05/23 07:00 12/04/23 07:00 Oxygen Flow Rate (L/min) 1 Oxygen Delivery Method Room Air Weight: 123 lb 7.342 oz Body Mass Index (BMI) 20.5 Intake & Output: Intake and Output for Last 24 Hours 12/03/23 12/04/23 12/05/23 23:59 23:59 23:59 Intake Total 2166 / 2166 340 / 340 112 / 112 Output Total 200 / 200 Balance 2165 140 / 140 112 / 112 Lab / Micro Data Attestation: I reviewed the patient's lab results. 12/05/23 05:10 12/05/23 05:10 Labs: Laboratory Results - last 24 hr 12/04/23 04:25: Total Bilirubin 0.20, Direct Bilirubin 0.11, AST 17, ALT 15, Alkaline Phosphatase 127 H, Total Protein 6.4, Albumin 2.7 L, Globulin 3.7, TSH 1.65 12/04/23 08:40: Ammonia 13.0 12/05/23 05:10: WBC 8.4, RBC 3.11 L, Hgb 8.9 L, Hct 27.9 L, MCV 89.7, MCH 28.6, MCHC 31.9 L, RDW Std Deviation 53.8 H, RDW Coeff of David 16.6 H, Plt Count 277, MPV 9.4, Immature Gran % (Auto) 0.600, Neut % (Auto) 90.5 H, Lymph % (Auto) 5.1 L, [place] % (Auto) 3.7, Eos % (Auto) 0.0, Baso % (Auto) 0.1, Absolute Neuts (auto) 7.6, Absolute Lymphs (auto) 0.43 L, Nucleated RBC % 0, Sodium 146 H, Potassium 4.1, Chloride 114 H, Carbon Dioxide 25.0, Anion Gap 7, BUN 31 H, Creatinine 1.17 H, Estim Creat Clear Calc 40.12, Est GFR (MDRD) Af Amer 59 L, Est GFR (MDRD) Non-Af 49 L, BUN/Creatinine Ratio 26.5 H, Glucose 122 H, Calcium 8.2 L Micro: Microbiology 12/02/23 11:38 Blood Culture (Wb) - Anticubital Left Blood Culture - Preliminary No growth in 48 hours. 12/02/23 10:27 Urine, Catheterized Urine Culture - Final Culture exhibits no growth. 12/02/23 07:37 Mucosa - Nose SARS-CoV-2, Influenza & RSV (PCR) - Final Radiography Diagnostic Testing: Radiology Impression KUB X-Ray 12/04/23 18:13 IMPRESSION: Nasogastric tube coiled in the midline with tip likely in the fundus of the stomach. No bowel obstruction. Electronically Signed: Elijah Pollack MD at 18:30 EST , Rhythm Strip Rhythm Strip: Sinus Rhythm Rate: 55 Ectopy: None Physical Exam Const alert, oriented x3 and no apparent distress General Appearance: cooperative HEENT normocephalic and head/scalp atraumatic Eyes PERRL, EOMs intact bilaterally and conjunctivae normal Neck supple General: trachea midline Chest inspection of chest normal Resp normal respiratory effort Auscultation: diminished lung sounds; Negative for rales, rhonchi or wheezes Cardio regular rate and regular rhythm GI normal to inspection, nondistended, normoactive bowel sounds Extremity no clubbing, cyanosis or edema Skin no rashes or lesions noted Neuro oriented x3, CN's II-XII intact bilaterally and moves all extremities Psych cooperative Charges/Coding Visit Charges Inpatient E&M: 65715 Subs Hosp L2
[2023-12-05] MEDS: Lisinopril 5 MG Tablet GT (08:49)
[2023-12-05] MEDS: Cholecalciferol (Vit D3) 125 MCG CAPSULE (5,000 UNITS) PO (08:50)
[2023-12-05] MEDS: Metoprolol Tartrate 25 MG Tablet 12.5 MG GT (08:50)
[2023-12-05] MEDS: APIXABAN 5 MG TABLET GT (08:50)
[2023-12-05] MEDS: Clopidogrel Bisulfate 75 MG Tablet GT (08:50)
[2023-12-05] MEDS: Gabapentin 800 MG Tablet GT ×2 (09:00→11:51)
--- NOTE | 2023-12-05 10:16 | PN.HOSP_ITS ---
Subjective Subjective NG placed last night able to restart her home medications. No new issues, she appears to be back to baseline Objective Data Objective Data Vital Signs: Vital Signs Temp Pulse Resp BP Pulse Ox O2 Del Method O2 Flow Rate 97.4 F L 72 14 148/71 H 96 Room Air 1 12/05/23 04:00 12/05/23 09:00 12/05/23 09:00 12/05/23 09:00 12/05/23 09:00 12/05/23 09:00 12/04/23 07:00 Oxygen Flow Rate (L/min) 1 Oxygen Delivery Method Room Air Weight: 123 lb 7.342 oz Body Mass Index (BMI) 20.5 Intake & Output: Intake and Output for Last 24 Hours 12/04/23 12/05/23 12/06/23 03:59 03:59 03:59 Intake Total 1166 / 1166 340 / 340 112 / 112 Output Total 200 / 200 Balance 1166 / 1166 140 / 140 112 / 112 Lab / Micro Data 12/05/23 05:10 12/05/23 05:10 Labs: Laboratory Results - last 24 hr 12/05/23 05:10: WBC 8.4, RBC 3.11 L, Hgb 8.9 L, Hct 27.9 L, MCV 89.7, MCH 28.6, MCHC 31.9 L, RDW Std Deviation 53.8 H, RDW Coeff of David 16.6 H, Plt Count 277, MPV 9.4, Immature Gran % (Auto) 0.600, Neut % (Auto) 90.5 H, Lymph % (Auto) 5.1 L, [place] % (Auto) 3.7, Eos % (Auto) 0.0, Baso % (Auto) 0.1, Absolute Neuts (auto) 7.6, Absolute Lymphs (auto) 0.43 L, Nucleated RBC % 0, Sodium 146 H, Potassium 4.1, Chloride 114 H, Carbon Dioxide 25.0, Anion Gap 7, BUN 31 H, Creatinine 1.17 H, Estim Creat Clear Calc 40.12, Est GFR (MDRD) Af Amer 59 L, Est GFR (MDRD) Non-Af 49 L, BUN/Creatinine Ratio 26.5 H, Glucose 122 H, Calcium 8.2 L Micro: Microbiology 12/02/23 11:38 Blood Culture (Wb) - Anticubital Left Blood Culture - Preliminary No growth in 48 hours. 12/02/23 10:27 Urine, Catheterized Urine Culture - Final Culture exhibits no growth. 12/02/23 07:37 Mucosa - Nose SARS-CoV-2, Influenza & RSV (PCR) - Final Radiography Diagnostic Testing: Radiology Impression KUB X-Ray 12/04/23 18:13 IMPRESSION: Nasogastric tube coiled in the midline with tip likely in the fundus of the stomach. No bowel obstruction. Electronically Signed: Elijah Pollack MD at 18:30 EST , Brain CT 12/05/23 05:55 IMPRESSION: 1. Embolization coils, suggesting previous treatment of aneurysm. 2. Mild chronic involutional changes of the brain. 3. No demonstrated acute intracranial process. Electronically Signed: Enzo Bennett MD at 7:40 EST , Rhythm Strip Rhythm Strip: Sinus Rhythm Rate: 55 Ectopy: None Physical Exam Narrative General: Alert and oriented x 3, cooperative, no acute distress HEENT: Atraumatic, PERRLA, EOMI, Normocephalic Oral: Moist Mucosa Neck: Supple, No JVD Lungs: Diminished, Normal air movement, No rhonchi, No wheeze, No rales Cardiovascular: Regular rate, Regular Rhythm, Normal S1, Normal S2, No murmurs Abdomen: Soft, Non Tender, Non-Distended, No Hepato-splenomegaly Extremities: No edema, Capillary Refill Less than 3 Seconds Skin: No rashes, No breakdown Musculoskeletal: No Tenderness to Palpation of Joints or Extremities Neurological: No focal neurologic deficits, moves all extremities Psych/Mental Status: Flat Assessment & Plan Assessment/Plan (1) Weakness: PLAN: Plan 1. Progressive generalized weakness in the setting of MS with hypertensive urgency/aspiration pneumonia ? Differential diagnoses include patient possible cystitis versus MS flareup. Plan is to treat the underlying suspected cystitis and if no improvement patient to be initiated on steroids consult subsequently placed to teleneurology 12/03/2023: Stroke alert was called for change though it is unclear as to what her baseline has been since admission with a UTI and generalized weakness will attempt to get an MRI without contrast to evaluate for possible stroke in the meantime she is significantly hypertensive and she was given a dose of labetalol in the CT scanner this will be made every 4 as needed as well as the hydralazine she has on board currently receiving 1 g of Solu-Medrol daily per recommendations neurology 12/04/2023: Given her behaviors may need to be intubated for an MRI will await neurology evaluation of her this afternoon. Blood cultures and urine cultures are negative. She did have an aspiration event yesterday when she went for the MRI where she laid flat she has a white count today that is likely related to her 1 g of Solu-Medrol daily however given her aspiration event yesterday she was started on Unasyn. EEG is pending. She had a CTA of the head and neck overnight which is unremarkable 12/05/2023: NG placed overnight restart her home medications. Repeat EEG is pending and CT of the brain was unremarkable appreciate neurology's assistance 2. Paroxysmal A-fib ? Rate controlled on systemic anticoagulation with apixaban continue 3. Essential hypertension ? Patient blood pressure control not optimal due to continuing home meds added hydralazine as needed. Blood pressure greater than 160 12/03/2023: Have to broaden her blood pressure medications to try to get better control unclear if she is consistently taking her medications at home 7. Tobacco dependence - Counseled on cessation, offered nicotine patch for tobacco cravings 8. Hypothyroidism - Patient is on levothyroxine home dose continued 9. Peripheral arterial disease ? With history of iliac stent As well as bilateral carotid endarterectomy. Patient is on antiplatelet therapy 10. Psoriatic arthritis ? Patient not on any DMARDs, will continue with pain meds as needed DVT: Eliquis Capacity Legal Alfalfa Dehydrator Operator Reflex Medical hold order details:: IF a medical hold is selected below, a suggested order for a MEDICAL HOLD will reflex upon signing the document. Next of kin: [place] law dictates a PRIORITY LIST for identifying legal decision-maker/legal next of kin in the following order (LNOK): 1st: The patient?s legal guardian, if any 2nd: The patient's spouse (if status is questionable, consult Risk Management) 3rd: The patient?s adult child(blaine) (majority, if multiple children) 4th: The patient?s parents 5th: The patient?s adult siblings (majority, if multiple children siblings) Charges/Coding Visit Charges Inpatient E&M: 74046 Subs Hosp L2
--- NOTE | 2023-12-05 12:21 | MRI_ITS ---
HISTORY: CVA -- MS flare. TECHNIQUE: Multiplanar and multisequence MR images of the brain were obtained without contrast. 307 images. COMPARISON: CT same day. MR 05/02/2022. FINDINGS: BRAIN PARENCHYMA: Multiple foci and small zones of increased T2 FLAIR signal in the bilateral white matter and danielle, similar to prior. No abnormal focus of restricted diffusion. No acute intracranial hemorrhage identified. CSF SPACES: Mild generalized volume loss. 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 No significant midline shift or other mass effect.No extra-axial fluid collection. VASCULAR SYSTEM: Major intracranial flow voids are maintained. PARANASAL SINUSES AND MASTOID AIR CELLS: Trace fluid in the mastoid air cells. ORBITS: Bilateral lens resections. MRI/Brain without Contrast IMPRESSION: No evidence for acute infarct. Mild chronic involutional and white matter changes. Electronically Signed: Angle Reynoso MD at 13:44 EST ,
--- NOTE | 2023-12-05 13:48 | NEURO.PNOTE ---
Assessment and Plan: Neuro Assessment/Plan ADY WALLER is a 68 F with a past medical history of MS, being evaluated by Teleneurology for possible MS exacerbation. Symptoms do seem in line with possible exacerbation vs pseudoexacerbation. Given symptoms started several days after getting the flu and when she was improving, believe she is likely does have some exacerbation. Will treat empirically, but also obtain MRI to eval the disease progression and any new lesions. If there are new and active demyelinating lesions then would need to increase duration of steroids and continue monitoring in order to assess improvement. Currently confusion improved and EEG this morning captured atypical movement events which had no epileptogenic correlation on video. She appears clinically improved, event wrt her weakness and some of her eye findings. Imaging benign for stroke and there is no significan white matter burden noted. She is s/p 3 days of steroid burst for possible MS exacerbation. Do not recommend additional changes to medications. Continue baclofen via NGT while NPO to avoid baclofen withdrawal. Followup with Neurologist in 4-6 weeks. I personally attended this patient and spent a total time of 30 minutes evaluating this patient including clinical assessment, review of chart, medical history imaging, and determining appropriate treatment and workup. Subject: Neurology Subjective 12/03: Pt suddenly confused and altered in the AM on 12/03, seen by telestroke. On eval 12/03 she was complaining about headache, withdrew in b/l LE and able to answer some yes/no questions. 12/04: had EEG this AM. Since then has begun to have jerking movements and tremors and staring episodes. She has gotten 3 doses of steroids. 12/05: This AM looks significantly improved, prior episodes caught on EEG with no clear correlation. NIHSS NIHSS Nursing Documentation NIHSS Nursing Documentation: NIHSS: Ischemic Stroke/TIA Start: 12/03/23 09:41 Freq: [id number] Status: Active Protocol: Activity Type Activity Date Activity User E-sign Co-sign Detail Recorded Client Recorded Date Recorded By Document 12/05/23 10:00 RV Desktop 12/05/23 10:50 RV 12/05/23 10:00 NIH Stroke Scale [NIHSS] A score of 0 is normal or asymptomatic . Total possible score is 42. Inpatient: RN or Physician to activate a stroke alert for onset of new stroke symptoms or with NIHSS increase >/= 3 points. Following change in neurological status, NIHSS will be performed per physician order or more frequently PRN. -1a. Level of Consciousness Alert; keenly responsive -1b. LOC Questions Answers BOTH questions correctly. -1c. LOC Commands Performs both tasks correctly . -2. Best Gaze Normal -3. Visual No visual loss -4. Facial Palsy Normal symmetrical movements -5a. Left Arm No drift; arm holds 90 (or 45 ) degrees for full 10 seconds -5b. Right Arm No drift; arm holds 90 (or 45 ) degrees for full 10 seconds -6a. Left Leg No drift; leg holds 30-degree position for full 5 seconds -6b. Right Leg No drift; leg holds 30-degree position for full 5 seconds -7. Limb Ataxia Absent -8. Sensory Normal; no sensory loss -9. Best Language No aphasia; normal -10. Dysarthria Normal -11. Extinction and Inattention No abnormality -Total 0 Query Text:A score of 0 is normal or asymptomatic. Total possible score is 42 . ED: Notify Physician for NIHSS increase by > / = 3 points. Inpatient: RN or Physician to activate a stroke alert for NIHSS increase of > / = 3 points. EEG Results Procedure Details EEG Procedure Details: Indication: ?rule out seizure Technical Description: This is a 21-channel digital EEG recording with time-locked video and single-channel electrocardiogram. Electrodes are placed according to the 10 to 20 International System. Additional T1 and T2 electrodes were placed. The patient was monitored continuously by EEG technicians by video and EEG recording was reviewed intermittently with annotations to the EEG record made every two hours.? Portions of this record are reviewed using bandpass filters of 1 to 70 Hz and sensitivity of 7mV/mm. ? EEG DESCRIPTION ? Background: This recording was obtained during awake and drowsy state. In the maximally alert state, a posterior dominant rhythm was a symmetric, reactive, well-modulated 8 Hz with a normal frequency-amplitude gradient.?? During drowsiness, there was attenuation of the waking background. Stage II sleep architecture was not present. ? Activation Procedures: Hyperventilation induced normal physiological driving. Sporadic Epileptiform Discharges: none Focal slow activity: none Rhythmic or Periodic activity: ?none ? Seizures: none Patient Events: Numerous episode of lip and jaw smacking were captured with no EEG correlation. EEG DIAGNOSIS Normal EEG ? CLINICAL INTERPRETATION This routine EEG is normal. Numerous episode of lip and jaw smacking were captured with no EEG correlation and hence are not epileptic in etiology. Objective Data Objective Data Vital Signs: Vital Signs Temp Pulse Resp BP Pulse Ox O2 Del Method O2 Flow Rate 96.8 F L 65 16 200/76 H 98 Room Air 1 12/05/23 12:00 12/05/23 13:14 12/05/23 13:14 12/05/23 13:14 12/05/23 12:20 12/05/23 13:14 12/04/23 07:00 Oxygen Flow Rate (L/min) 1 Oxygen Delivery Method Room Air Weight: 56 kg Body Mass Index (BMI) 20.5 Intake & Output: Intake and Output for Last 24 Hours 12/03/23 12/04/23 12/05/23 23:59 23:59 23:59 Intake Total 2166 / 2166 340 / 340 112 / 112 Output Total 200 / 200 Balance 2166 / 2166 140 / 140 112 / 112 Lab / Micro Data 12/05/23 05:10 12/05/23 05:10 Labs: Laboratory Results - last 24 hr 12/05/23 05:10: WBC 8.4, RBC 3.11 L, Hgb 8.9 L, Hct 27.9 L, MCV 89.7, MCH 28.6, MCHC 31.9 L, RDW Std Deviation 53.8 H, RDW Coeff of David 16.6 H, Plt Count 277, MPV 9.4, Immature Gran % (Auto) 0.600, Neut % (Auto) 90.5 H, Lymph % (Auto) 5.1 L, Taylor % (Auto) 3.7, Eos % (Auto) 0.0, Baso % (Auto) 0.1, Absolute Neuts (auto) 7.6, Absolute Lymphs (auto) 0.43 L, Nucleated RBC % 0, Sodium 146 H, Potassium 4.1, Chloride 114 H, Carbon Dioxide 25.0, Anion Gap 7, BUN 31 H, Creatinine 1.17 H, Estim Creat Clear Calc 40.12, Est GFR (MDRD) Af Amer 59 L, Est GFR (MDRD) Non-Af 49 L, BUN/Creatinine Ratio 26.5 H, Glucose 122 H, Calcium 8.2 L Micro: Microbiology 12/02/23 11:38 Blood Culture (Wb) - Anticubital Left Blood Culture - Preliminary No growth in 48 hours. 12/02/23 10:27 Urine, Catheterized Urine Culture - Final Culture exhibits no growth. 12/02/23 07:37 Mucosa - Nose SARS-CoV-2, Influenza & RSV (PCR) - Final Radiography Diagnostic Testing: Radiology Impression KUB X-Ray 12/04/23 18:13 IMPRESSION: Nasogastric tube coiled in the midline with tip likely in the fundus of the stomach. No bowel obstruction. Electronically Signed: Elijah Pollack MD at 18:30 EST , Brain CT 12/05/23 05:55 IMPRESSION: 1. Embolization coils, suggesting previous treatment of aneurysm. 2. Mild chronic involutional changes of the brain. 3. No demonstrated acute intracranial process. Electronically Signed: Enzo Bennett MD at 7:40 EST , Brain MRI 12/05/23 12:21 IMPRESSION: No evidence for acute infarct. Mild chronic involutional and white matter changes. Electronically Signed: Angle Reynoso MD at 13:44 EST , Rhythm Strip Rhythm Strip: Sinus Rhythm Rate: 55 Ectopy: None Physical Exam Narrative Mental Status: The patient was alert and oriented to time, place, and person. Normal recent/remote memory, concentration, and general fund of knowledge. Language: speech is clear.? Naming, repetition, fluency, and comprehension intact. Cranial Nerves: R pupil 3.5mm briskly reactive, L pupil 3mm reactive to light, no reactivity on R pupil with swinging eye test. EOMI, visual duarte full, no facial asymmetry, facial sensation intact, hearing intact, tongue midline, no evidence of atrophy or fibrillations. tongue with R deviation No clear nystagmus Motor: normal bulk, tone, and strength throughout. No pronator drift or satelliting. Upper and lower extremities equal bilaterally. -? Detailed strength exam as performed by the nurse/ANTHONY and witnessed by the physician: R L SA 5 5 EE 5 5 EF 5 5 WE WF Lead Assembler 5 5 HF 3 5 KE 4 5 KF 5 4 DF 5 5 PF 5 5 -? Sensation- Intact to light touch bilaterally -? Coordination: improved ataxia on the RLE (not prominent); b/l UE with no ataxia -? Gait- deferred
--- NOTE | 2023-12-05 15:20 | CASEMGMT ---
Discharge Planning A list of?SNF providers including quality and resource use data and consistent with the patient's preferred geographic region, medical needs, and insurance network was created in [facility] [facility].? This list was provided to the SW. Dena Torres Discharge Planning Asst.
[2023-12-05] MEDS: Gabapentin 800 MG Tablet PO (17:14)
[2023-12-05] MEDS: Baclofen 10 MG Tablet 20 MG PO (17:14)
[2023-12-05] MEDS: oxyCODONE 5 MG Tablet 10 MG PO (18:31)
[2023-12-05] MEDS: Metoprolol Tartrate 25 MG Tablet 12.5 MG PO (22:01)
[2023-12-05] MEDS: guaiFENesin/D-Methorphan TAB.SR.12H 1 TABLET PO (22:03)
[2023-12-06] VITALS (15 sets, daily range): BP systolic 101–172; BP diastolic 52–94; PULSE 47–61; RESP 8–18; TEMP 36–37; O2SAT 95–98
[2023-12-06] MEDS: Baclofen 10 MG Tablet 20 MG PO ×5 (00:11→23:54)
[2023-12-06] MEDS: oxyCODONE 5 MG Tablet 10 MG PO ×5 (00:14→23:54)
[2023-12-06] MEDS: Docusate Sodium 100 MG Capsule PO ×2 (00:40→06:08)
[2023-12-06 05:01] LABS: Absolute Lymphocyte Count 0.71 X10^3/uL (0.83-4.51); Absolute Neutrophil Count 5.3 X10^3/uL (2.0-7.7); Basophil# 0.01 X10^3/uL; Basophil% 0.1 % (0-1); Hematocrit 26.8 % (37-47); Hemoglobin 8.5 g/dL (12.0-15.0); Lymphocyte # 0.71 X10^3/ul (0.83-4.51); Lymphocyte % 10.6 % (19-41); Mean Corp Hgb Conc 31.7 g/dL (32-36); Mean Corpuscular Volume 91.5 fL (81-99); Mean Platelet Vol. 9.2 fl (6.2-12.0); Monocyte# 0.63 X10^3/uL; Monocyte% 9.4 % (0-10); NRBC Flagged by Analyzer 0 % (0-5); Neutrophil # 5.31 X10^3/uL (2.7-7.7); Neutrophil % 79.3 % (47-70); Platelet Count 209 K/mm3 (150-450); RBC Distribution Width CV 16.2 % (11.6-14.6); RBC Distribution Width SD 54.4 fl (35.1-43.9); Red Blood Count 2.93 M/mm3 (4.2-5.4); White Blood Count 6.7 K/mm3 (4.4-11.0)
[2023-12-06] MEDS: Levothyroxine 50 MCG Tablet PO (05:03)
[2023-12-06] MEDS: Ampicillin/Sulbactam 3 GM in 0.9% Normal Saline (100mL MB+) 100 ML IV ×3 (05:04→19:53)
[2023-12-06 05:16] LABS: Anion Gap 3 (5-15); BUN 34 mg/dL (7-18); BUN/Creat Ratio 34.3 RATIO (10-20); Calcium,Total 7.5 mg/dL (8.5-10.1); Chloride 113 mmol/L (98-107); Creatinine, Serum 0.99 mg/dL (0.55-1.02); EST Glomerular Filtration Rate 59 mL/min (>60); Est Glom Filt Rate - Afr Amer 71 mL/min (>60); Estimated Creatinine Clearance 47.41 ml/min; Glucose 91 mg/dL (74-106); Potassium 3.8 mmol/L (3.5-5.1); Sodium Level 144 mmol/L (136-145)
[2023-12-06] MEDS: Gabapentin 800 MG Tablet PO ×3 (08:26→17:22)
[2023-12-06] MEDS: APIXABAN 5 MG TABLET PO (08:28)
[2023-12-06] MEDS: guaiFENesin/D-Methorphan TAB.SR.12H 1 TABLET PO ×2 (08:28→19:59)
[2023-12-06] MEDS: Cholecalciferol (Vit D3) 125 MCG CAPSULE (5,000 UNITS) PO (08:28)
[2023-12-06] MEDS: Clopidogrel Bisulfate 75 MG Tablet PO (08:29)
[2023-12-06] MEDS: Lisinopril 5 MG Tablet PO (08:29)
--- NOTE | 2023-12-06 09:00 | PN.HOSP_ITS ---
Subjective Subjective Back to her baseline it appears. She feels little bit weak and is worried about going home Objective Data Objective Data Vital Signs: Vital Signs Temp Pulse Resp BP Pulse Ox O2 Del Method O2 Flow Rate 97.6 F L 53 L 18 157/87 H 97 Room Air 1 12/06/23 06:00 12/06/23 06:00 12/06/23 06:00 12/06/23 06:00 12/06/23 07:25 12/06/23 07:25 12/04/23 07:00 Oxygen Flow Rate (L/min) 1 Oxygen Delivery Method Room Air Weight: 123 lb 7.342 oz Body Mass Index (BMI) 20.5 Intake & Output: Intake and Output for Last 24 Hours 12/05/23 12/06/23 12/07/23 03:59 03:59 03:59 Intake Total 340 / 340 636 / 636 212 / 212 Output Total 200 / 200 Balance 140 / 140 636 / 636 212 / 212 Lab / Micro Data 12/06/23 04:50 12/06/23 04:50 Labs: Laboratory Results - last 24 hr 12/06/23 04:50: WBC 6.7, RBC 2.93 L, Hgb 8.5 L, Hct 26.8 L, MCV 91.5, MCH 29.0, MCHC 31.7 L, RDW Std Deviation 54.4 H, RDW Coeff of David 16.2 H, Plt Count 209, MPV 9.2, Immature Gran % (Auto) 0.600, Neut % (Auto) 79.3 H, Lymph % (Auto) 10.6 L, [place] % (Auto) 9.4, Eos % (Auto) 0.0, Baso % (Auto) 0.1, Absolute Neuts (auto) 5.3, Absolute Lymphs (auto) 0.71 L, Nucleated RBC % 0, Sodium 144, Potassium 3.8, Chloride 113 H, Carbon Dioxide 28.0, Anion Gap 3 L, BUN 34 H, Creatinine 0.99, Estim Creat Clear Calc 47.41, Est GFR (MDRD) Af Amer 71, Est GFR (MDRD) Non-Af 59 L, BUN/Creatinine Ratio 34.3 H, Glucose 91, Calcium 7.5 L Micro: Microbiology 12/02/23 11:38 Blood Culture (Wb) - Anticubital Left Blood Culture - Preliminary No growth in 48 hours. 12/02/23 10:27 Urine, Catheterized Urine Culture - Final Culture exhibits no growth. 12/02/23 07:37 Mucosa - Nose SARS-CoV-2, Influenza & RSV (PCR) - Final Radiography Diagnostic Testing: Radiology Impression Brain MRI 12/05/23 12:21 IMPRESSION: No evidence for acute infarct. Mild chronic involutional and white matter changes. Electronically Signed: Angle Reynoso MD at 13:44 EST , Rhythm Strip Rhythm Strip: Sinus Rhythm Rate: 55 Ectopy: None Physical Exam Narrative General: Alert and oriented x 3, cooperative, no acute distress HEENT: Atraumatic, PERRLA, EOMI, Normocephalic Oral: Moist Mucosa Neck: Supple, No JVD Lungs: Diminished, Normal air movement, No rhonchi, No wheeze, No rales Cardiovascular: Regular rate, Regular Rhythm, Normal S1, Normal S2, No murmurs Abdomen: Soft, Non Tender, Non-Distended, No Hepato-splenomegaly Extremities: No edema, Capillary Refill Less than 3 Seconds Skin: No rashes, No breakdown Musculoskeletal: No Tenderness to Palpation of Joints or Extremities Neurological: No focal neurologic deficits, moves all extremities Psych/Mental Status: Flat Assessment & Plan Assessment/Plan (1) Weakness: PLAN: Plan 1. Progressive generalized weakness in the setting of MS with hypertensive urgency/aspiration pneumonia/chronic pain ? Differential diagnoses include patient possible cystitis versus MS flareup. Plan is to treat the underlying suspected cystitis and if no improvement patient to be initiated on steroids consult subsequently placed to teleneurology 12/03/2023: Stroke alert was called for change though it is unclear as to what her baseline has been since admission with a UTI and generalized weakness will attempt to get an MRI without contrast to evaluate for possible stroke in the meantime she is significantly hypertensive and she was given a dose of labetalol in the CT scanner this will be made every 4 as needed as well as the hydralazine she has on board currently receiving 1 g of Solu-Medrol daily per recommendations neurology 12/04/2023: Given her behaviors may need to be intubated for an MRI will await neurology evaluation of her this afternoon. Blood cultures and urine cultures are negative. She did have an aspiration event yesterday when she went for the MRI where she laid flat she has a white count today that is likely related to her 1 g of Solu-Medrol daily however given her aspiration event yesterday she was started on Unasyn. EEG is pending. She had a CTA of the head and neck overnight which is unremarkable 12/05/2023: NG placed overnight restart her home medications. Repeat EEG is pending and CT of the brain was unremarkable appreciate neurology's assistance 12/06/2023: Symptomatology is completely resolved continue with Unasyn and transfer her out of the ICU 2. paroxysmal A-fib/history of CVA/PAD with iliac stent/history of TIA/nonobstructive CAD/HTN/HLD ? Continue with her home Eliquis during her last admission her A-fib had resolved prior to discharge ? Echo with an EF of 70% and stage II diastolic dysfunction with an RVSP of 55 5 mmHg the last time she was here ? She also had dark stools last time she was here but she was taking Pepto- Bismol at the time however at that time her hemoglobin was stable ? Continue with her home blood pressure medications monitor make adjustments as necessary 3. Anemia ? Unclear as to the cause will obtain a fecal occult stool as well as iron studies 4. Hypothyroidism ? Stable ? Continue with Synthroid DVT: Eliquis Capacity Legal Health Consultant Reflex Medical hold order details:: IF a medical hold is selected below, a suggested order for a MEDICAL HOLD will reflex upon signing the document. Next of kin: [place] law dictates a PRIORITY LIST for identifying legal decision-maker/legal next of kin in the following order (LNOK): 1st: The patient?s legal guardian, if any 2nd: The patient's spouse (if status is questionable, consult Risk Management) 3rd: The patient?s adult child(blaine) (majority, if multiple children) 4th: The patient?s parents 5th: The patient?s adult siblings (majority, if multiple children siblings) Charges/Coding Visit Charges Inpatient E&M: 42247 Subs Hosp L2
[2023-12-06] MEDS: Acetaminophen 325 MG Tablet 650 MG PO (09:33)
--- NOTE | 2023-12-06 09:40 | CASEMGMT ---
Patient did not do well with therapy. SW met with patient. Introduced self and role at [facility]. Patient's presentation is much improved from previous days. Patient is alert and oriented and conversing at her baseline. SW discussed how patient did with therapy and her d/c plan. Patient does not want to go to a SNF for rehab. Patient said she lives in a handicap accessible apartment and has an aide. SW told patient therapy will see her again today and we can see how she does. Lizbeth Moent MSW TATUM
--- NOTE | 2023-12-06 10:27 | CASEMGMT ---
Per nursing admission questions patient does not have a Healthcare Power of Restaurant Shift Leader or Healthcare Living Will and she is not interested in documents. Lizbeth WINN
[2023-12-06] MEDS: Mag Hydrox/Al Hydrox/Simeth 30 ML UDC PO (12:00)
--- NOTE | 2023-12-06 12:07 | CHAPLAIN ---
Type of Pastoral Visit ___ Initial Visit _x__ Follow-up Visit ___ On-call Visit ___ General Patient Visit ___ Spiritual Assessment ___ Family Conference ___ Bereavement ___ Rapid Response ___ Code Blue ___ Other (describe below) Pastoral Care Referral From _x__ Patient ___ Family ___ Nurse ___ Physician ___ Garnett Mechanic ___ Family Services Manager ___ Other (describe below) Sacrament/Intervention _x__ Active listening ___ Anointing ___ Uatsdin ___ Bereavement ___ Communion _x__ Kaci exploration ___ _x__ Life review _x__ Prayer ___ Reconciliation ___ Sacrament of Sick _x__ Supportive presence ___ Wedding ___ Other (describe below) Pastoral Comments follow up visit to this patient who is noticeably doing much better and able to clearly talk and carry on a lengthy conversation; pt expresses gladness that this biodiesel process control technician returned to see her because she wanted to thank God for answers to prayer and her better condition; pt admitted that she believed she was going to earlier this week but that she has hope for more time with family; pt acknowledges her desire to be more committed to rastafarian participation and asked questions about family community; pt gives some life review and current circumstances;
[2023-12-06 12:37] LABS: Ferritin 96 ng/mL (8-252); Iron 67 ug/dL (50-170); Iron Binding Capacity,Total 203 ug/dL (250-450)
[2023-12-06 12:54] LABS: Hematocrit 28.3 % (37-47); Hemoglobin 9.3 g/dL (12.0-15.0)
[2023-12-06] MEDS: Metoprolol Tartrate 25 MG Tablet 12.5 MG PO (19:59)
[2023-12-07] VITALS (7 sets, daily range): BP systolic 140–174; BP diastolic 76–101; PULSE 50–64; RESP 12–18; TEMP 36–36.3; O2SAT 94–98
[2023-12-07] MEDS: hydrALAZINE 20 MG/ML Vial 10 MG IV ×2 (00:07→05:09)
[2023-12-07] MEDS: Acetaminophen 325 MG Tablet 650 MG PO ×2 (02:35→12:55)
[2023-12-07] MEDS: Baclofen 10 MG Tablet 20 MG PO ×2 (04:44→11:41)
[2023-12-07] MEDS: Ampicillin/Sulbactam 3 GM in 0.9% Normal Saline (100mL MB+) 100 ML IV ×2 (04:44→12:51)
[2023-12-07] MEDS: oxyCODONE 5 MG Tablet 10 MG PO ×3 (04:44→14:26)
[2023-12-07] MEDS: Levothyroxine 50 MCG Tablet PO (04:44)
[2023-12-07 04:59] LABS: Absolute Lymphocyte Count 1.31 X10^3/uL (0.83-4.51); Absolute Neutrophil Count 5.2 X10^3/uL (2.0-7.7); Basophil# 0.01 X10^3/uL; Basophil% 0.1 % (0-1); Eosinophil# 0.01 X10^3/uL; Eosinophils% 0.1 % (0-5); Hematocrit 27.4 % (37-47); Lymphocyte # 1.31 X10^3/ul (0.83-4.51); Lymphocyte % 17.9 % (19-41); Mean Corp Hgb Conc 32.8 g/dL (32-36); Mean Corpuscular Hgb 29.8 pg (27.0-32.0); Mean Corpuscular Volume 90.7 fL (81-99); Mean Platelet Vol. 9.5 fl (6.2-12.0); Monocyte# 0.72 X10^3/uL; Monocyte% 9.8 % (0-10); NRBC Flagged by Analyzer 0 % (0-5); Neutrophil # 5.18 X10^3/uL (2.7-7.7); Platelet Count 216 K/mm3 (150-450); RBC Distribution Width CV 15.6 % (11.6-14.6); RBC Distribution Width SD 51.9 fl (35.1-43.9); Red Blood Count 3.02 M/mm3 (4.2-5.4); White Blood Count 7.3 K/mm3 (4.4-11.0)
[2023-12-07 05:13] LABS: Anion Gap 5 (5-15); BUN 30 mg/dL (7-18); BUN/Creat Ratio 29.7 RATIO (10-20); Calcium,Total 7.7 mg/dL (8.5-10.1); Chloride 111 mmol/L (98-107); Creatinine, Serum 1.01 mg/dL (0.55-1.02); EST Glomerular Filtration Rate 58 mL/min (>60); Est Glom Filt Rate - Afr Amer 70 mL/min (>60); Estimated Creatinine Clearance 46.47 ml/min; Glucose 94 mg/dL (74-106); Potassium 3.6 mmol/L (3.5-5.1); Sodium Level 142 mmol/L (136-145)
[2023-12-07] MEDS: Gabapentin 800 MG Tablet PO ×2 (08:19→11:41)
[2023-12-07] MEDS: Lisinopril 5 MG Tablet PO (08:21)
[2023-12-07] MEDS: guaiFENesin/D-Methorphan TAB.SR.12H 1 TABLET PO (08:21)
[2023-12-07] MEDS: Clopidogrel Bisulfate 75 MG Tablet PO (08:21)
[2023-12-07] MEDS: Cholecalciferol (Vit D3) 125 MCG CAPSULE (5,000 UNITS) PO (08:21)
[2023-12-07] MEDS: Mag Hydrox/Al Hydrox/Simeth 30 ML UDC PO (10:02)
[2023-12-07] MEDS: Metoprolol Tartrate 25 MG Tablet 12.5 MG PO (10:03)
--- NOTE | 2023-12-07 10:30 | CASEMGMT ---
Addendum entered by Stacey Hwang 12/07/23 13:40: Per Robinson @ [facility], they are able to accept pt, but they are awaiting call back from Dr Benton's office to see if he will require pt to see him in his office before following for HHC. Pt made aware of same and made aware [facility] will be calling her to let her know if she needs to schedule an appt. She voices understanding. Pt states she is active w/palliative care. Call placed to [facility] palliative and made aware pt is being discharged home today. Pt denies having other discharge needs. Addendum entered by Stacey Hwang 12/07/23 12:14: Per [facility]/therapy, they feel pt is safe to discharge home. Original Note: EVERT CHAVARRIA NOTE: EVERT CHAVARRIA to room. Pt resting in bed. Introduced self and role. Discussed discharge planning. Pt states she would like to discharge home and feels she will be safe @ home. Discussed HHC, information provided, and questions answered. Pt would like [facility] and declines wanting list of other HHC options. She states if [facility] unable to accept her, then she would take a list at that time to review. Order placed for HHC: SN and PT/OT and call placed to [facility] and referral made. Awaiting response. Pt states her son will take her home @ discharge. Yusef KELSEY RN, CM
--- NOTE | 2023-12-07 11:06 | NURSING ---
Pt refusing eliquis stating it upsets her stomach. Education on eliquis provided as well as importance of taking medication. Pt verbalizes understanding. Dr Murillo notified
--- NOTE | 2023-12-07 12:38 | DCINST_ITS ---
Discharge Instructions Diet Discharge Diet: Low fat / Low cholesterol Activity Discharge Activity: Return to Normal Activity Dressing / Incision Call your doctor if you observe: Fever of 101 or Higher, Shortness of breath, Dizziness, Fainting spells, Swelling in the ankles, Chest pain and Increased palpitations (irregular heartbeat) Follow Up Care Test Results: Test results from this visit will be discussed in further detail at your follow- up appointment, if applicable. Discharge Plan Admission Admit Date/Time: 12/02/23 11:22 Attending Provider: Sachin Murillo Primary Care Provider: Daron Benton Consulting Providers: Ruby Wynn; Kiley Carpenter; Arleen Estrada; Rima Riggins; Roman Mckeon; Deepika Graham; Maurilio Garland; Phil Terry; SARI BALLESTEROS; Jose Santos; Rhiannon Farris; Kt Friend; Angie Shields; Jo Ann Krishnamurthy; Johnny Sepulveda; Nikole Allison; Gerald Suh; Kristopher Hernández; Silvino Schmidt; Sarkis Brown; Simon Tellez; Michele Rascon; Kirsten Azevedo; Joseph Desai; Samina Mortensen; Keyona Davidson Instructions Additional Instructions / Restrictions: Follow-up with your PCP in 3 to 5 days to obtain outpatient lab work to monitor your hemoglobin. As discussed if you do notice bright red blood per rectum then discontinue your Eliquis and Plavix and call your doctor or return to the hospital Discharge Orders/Prescriptions Prescriptions: New amoxicillin-pot clavulanate 875-125 mg tablet 1 tab PO BID 4 Days Qty: 8 0RF Continued gabapentin 800 mg tablet 800 mg PO TID baclofen 20 mg tablet 20 mg PO Q8H levothyroxine 50 mcg tablet 50 mcg PO DAILY Patient Comments: take 1 tablet by mouth once daily oxycodone 10 mg tablet 10 mg PO Q6H PRN Patient Comments: take 1 tab q6 PRN for pain lisinopril 5 mg tablet 5 mg PO DAILY Qty: 30 11RF Hold Instructions: Hold for 7 days. cholecalciferol (vitamin D3) 5,000 UNIT tablet 5,000 unit PO DAILY Patient Comments: supplement dextromethorphan-guaifenesin [Mucinex DM] 60-1,200 mg tablet extended release 12 hr 1 tab PO Q12H 7 Days Qty: 14 0RF metoprolol tartrate 25 mg Tablet 12.5 mg PO BID 30 Days Qty: 30 0RF Eliquis 5 mg Tablet 5 mg PO BID 30 Days Qty: 60 0RF clopidogrel 75 mg tablet 75 mg PO DAILY Qty: 90 3RF Referrals / Follow Up: Daron Benton MD [Primary Care Provider] - Within 1 Week Disposition Disposition (needs filled in before D/C Order can be placed): Home Health Service
--- NOTE | 2023-12-07 13:32 | CASEMGMT ---
YAW faxed patient's discharge instructions to Tena Santoro at [facility]. Lizbeth Monet SINGLE CORNER CUTTERNicola WINN
--- NOTE | 2023-12-07 14:17 | PCM.DC.SUM ---
Providers Date of Admission: 12/02/23 Primary Care Physician: Dr. Daron Benton MD Consultations 12/02/23 12:37 Consult: Tele-Neurology Routine Consulting Provider: [facility] Reason for Consult: Possible MS flareup EMERGENT Consult: No Notified: Yes Date Notified: 12/02/23 Time Notified: 11:39 Method of Notification: Answering Service Nursing Unit Staff Notify [facility] of Tele-Neurology Consult: Yes 12/04/23 06:18 Consult: Social Service Director / Pulmonary Medicine Routine Consulting Provider: [facility]/Pulmonary Med Reason for Consult: Mental Status Change EMERGENT Consult: No Notified: Yes Date Notified: 12/04/23 Time Notified: 06:19 Method of Notification: Text Reason For Visit: WEAKNESS Diagnosis Discharge Diagnosis (1) Weakness: Status: Acute Code(s): R53.1 - Weakness Medications at Discharge Home Medications cholecalciferol (vitamin D3) 125 mcg (5,000 unit) tablet 5,000 unit PO DAILY supplement 12/16/13 gabapentin 800 mg tablet 800 mg PO TID MS 07/16/18 baclofen 20 mg tablet 20 mg PO Q8H MS 08/11/21 levothyroxine 50 mcg tablet 50 mcg PO DAILY thyroid 08/11/21 oxycodone 10 mg tablet 10 mg PO Q6H PRN pain 05/24/23 clopidogrel 75 mg tablet 75 mg PO DAILY dose increased, pt is OUT of med, please fill #90 TABLETS 06/01/23 lisinopril 5 mg tablet 5 mg PO DAILY blood pressure #30 tabs 11/02/23 dextromethorphan-guaifenesin ER 60 mg-1,200 mg tab,extend release,12hr (Mucinex DM) 1 tab PO Q12H cough/congest 7 days #14 tabs 11/16/23 apixaban 5 mg tablet (Eliquis) 5 mg PO BID 30 days #60 tabs 11/21/23 metoprolol tartrate 25 mg tablet 12.5 mg (1/2 x 25 mg) PO BID 30 days #30 tabs 11/21/23 amoxicillin 875 mg-potassium clavulanate 125 mg tablet 1 tab PO BID 4 days #8 tabs 12/07/23 Hospital Course Operations None Procedures None Summary of Care Provided Minutes Spent on Discharge: 36 Hospital Course: Per HPI: ADY WALLER, is a 68 F with past medical history is again for multiple sclerosis, recent hospitalization for acute influenza A infection who presented with generalized weakness. Per patient symptoms have been going on for couple of days. Patient however denied any subjective fever no chills. Presented to the emergency department initial workup including head CT came back unremarkable urinalysis however did demonstrate positive leukocyte esterase. Admitted to a monitored bed for further management Hospital Course: 1. Progressive generalized weakness in the setting of MS with hypertensive urgency/aspiration pneumonia/chronic pain ? Differential diagnoses include patient possible cystitis versus MS flareup. Plan is to treat the underlying suspected cystitis and if no improvement patient to be initiated on steroids consult subsequently placed to teleneurology 12/03/2023: Stroke alert was called for change though it is unclear as to what her baseline has been since admission with a UTI and generalized weakness will attempt to get an MRI without contrast to evaluate for possible stroke in the meantime she is significantly hypertensive and she was given a dose of labetalol in the CT scanner this will be made every 4 as needed as well as the hydralazine she has on board currently receiving 1 g of Solu-Medrol daily per recommendations neurology 12/04/2023: Given her behaviors may need to be intubated for an MRI will await neurology evaluation of her this afternoon. Blood cultures and urine cultures are negative. She did have an aspiration event yesterday when she went for the MRI where she laid flat she has a white count today that is likely related to her 1 g of Solu-Medrol daily however given her aspiration event yesterday she was started on Unasyn. EEG is pending. She had a CTA of the head and neck overnight which is unremarkable 12/05/2023: NG placed overnight restart her home medications. Repeat EEG is pending and CT of the brain was unremarkable appreciate neurology's assistance 12/06/2023: Symptomatology is completely resolved continue with Unasyn and transfer her out of the ICU 12/07/2023: I discussed with her the plan for discharge today she expressed understanding of the risk benefits going home and would like to go home today. I discussed with her the need to continue with Augmentin for another couple of days just to complete treatment for possible aspiration pneumonia as she aspirated during her initial attempt at an MRI. She needs to follow-up with her own neurologist within the next couple weeks and I also recommend follow-up with her PCP in 3 to 5 days to obtain lab work and monitor her renal function as well as her anemia. She was here at the end of October in the beginning of November she was complaining of dark stools but was having GI upset from flu and was taking Pepto-Bismol and at that time her fecal occult negative. Hemoglobin is now down to 9.3 with no active signs of bleeding however she is on Eliquis for her new onset A-fib earlier this month. I do also recommend that she follow-up with cardiology as an outpatient 2. paroxysmal A-fib/history of CVA/PAD with iliac stent/history of TIA/nonobstructive CAD/HTN/HLD ? Continue with her home Eliquis during her last admission her A-fib had resolved prior to discharge ? Echo with an EF of 70% and stage II diastolic dysfunction with an RVSP of 55 mmHg the last time she was here ? She also had dark stools last time she was here but she was taking Pepto-Bismol at the time ? Continue with her home blood pressure medications monitor make adjustments as necessary 3. Anemia ? Iron studies were unremarkable ? Did not provide a stool sample for fecal occult so we will monitor as an outpatient as she is hemodynamically stable. She is aware and understands the risk and benefits of going home 4. Hypothyroidism ? Stable ? Continue with Synthroid Physical Exam Narrative General: Alert and oriented x 3, cooperative, no acute distress HEENT: Atraumatic, PERRLA, EOMI, Normocephalic Oral: Moist Mucosa Neck: Supple, No JVD Lungs: Diminished, Normal air movement, No rhonchi, No wheeze, No rales Cardiovascular: Regular rate, Regular Rhythm, Normal S1, Normal S2, No murmurs Abdomen: Soft, Non Tender, Non-Distended, No Hepato-splenomegaly Extremities: No edema, Capillary Refill Less than 3 Seconds Skin: No rashes, No breakdown Musculoskeletal: No Tenderness to Palpation of Joints or Extremities Neurological: No focal neurologic deficits, moves all extremities Psych/Mental Status: Flat Weight / BMI Weight Weight: 123 lb 7.342 oz Body Mass Index (BMI) 20.5 ABG / Lab / Microbiology Data 12/07/23 04:15 12/07/23 04:15 Laboratory: Laboratory Results - last 24 hr 12/07/23 04:15: WBC 7.3, RBC 3.02 L, Hgb 9.0 L, Hct 27.4 L, MCV 90.7, MCH 29.8, MCHC 32.8, RDW Std Deviation 51.9 H, RDW Coeff of David 15.6 H, Plt Count 216, MPV 9.5, Immature Gran % (Auto) 1.100 H, Neut % (Auto) 71.0 H, Lymph % (Auto) 17.9 L, [place] % (Auto) 9.8, Eos % (Auto) 0.1, Baso % (Auto) 0.1, Absolute Neuts (auto) 5.2, Absolute Lymphs (auto) 1.31, Nucleated RBC % 0, Sodium 142, Potassium 3.6, Chloride 111 H, Carbon Dioxide 26.0, Anion Gap 5, BUN 30 H, Creatinine 1.01, Estim Creat Clear Calc 46.47, Est GFR (MDRD) Af Amer 70, Est GFR (MDRD) Non-Af 58 L, BUN/Creatinine Ratio 29.7 H, Glucose 94, Calcium 7.7 L Microbiology: Microbiology 12/02/23 11:38 Blood Culture (Wb) - Anticubital Left Blood Culture - Final No growth in 5 days. 12/02/23 10:27 Urine, Catheterized Urine Culture - Final Culture exhibits no growth. 12/02/23 07:37 Mucosa - Nose SARS-CoV-2, Influenza & RSV (PCR) - Final D/C Instructions Discharge Diet: Low fat / Low cholesterol Call your doctor if you observe: Fever of 101 or Higher, Shortness of breath, Dizziness, Fainting spells, Swelling in the ankles, Chest pain and Increased palpitations (irregular heartbeat) Meaningful Use Info Meaningful Use Diagnoses (Choose all that apply): None applicable Discharge Plan Admission Admit Date/Time: 12/02/23 11:22 Attending Provider: Sachin Murillo Primary Care Provider: Daron Benton Consulting Providers: Ruby Wynn; Kiley Carpenter; Arleen Estrada; Rima Riggins; Roman Mckeon; Deepika Graham; Maurilio Garland; Phil Terry; SARI BALLESTEROS; Jose Santos; Rhiannon Farris; Kt Friend; Angie Shields; Jo Ann Krishnamurthy; Johnny Sepulveda; Nikole Allison; Gerald Suh; Kristopher Hernández; Silvino Schmidt; Sarkis Brown; Simon Tellez; Michele Rascon; Kirsten Azevedo; Joseph Desai; Samina Mortensen; Keyona Davidson Instructions Additional Instructions / Restrictions: Follow-up with your PCP in 3 to 5 days to obtain outpatient lab work to monitor your hemoglobin. As discussed if you do notice bright red blood per rectum then discontinue your Eliquis and Plavix and call your doctor or return to the hospital Discharge Orders/Prescriptions Prescriptions: New amoxicillin-pot clavulanate 875-125 mg tablet 1 tab PO BID 4 Days Qty: 8 0RF Continued gabapentin 800 mg tablet 800 mg PO TID baclofen 20 mg tablet 20 mg PO Q8H levothyroxine 50 mcg tablet 50 mcg PO DAILY Patient Comments: take 1 tablet by mouth once daily oxycodone 10 mg tablet 10 mg PO Q6H PRN Patient Comments: take 1 tab q6 PRN for pain lisinopril 5 mg tablet 5 mg PO DAILY Qty: 30 11RF Hold Instructions: Hold for 7 days. cholecalciferol (vitamin D3) 5,000 UNIT tablet 5,000 unit PO DAILY Patient Comments: supplement dextromethorphan-guaifenesin [Mucinex DM] 60-1,200 mg tablet extended release 12 hr 1 tab PO Q12H 7 Days Qty: 14 0RF metoprolol tartrate 25 mg Tablet 12.5 mg PO BID 30 Days Qty: 30 0RF Eliquis 5 mg Tablet 5 mg PO BID 30 Days Qty: 60 0RF clopidogrel 75 mg tablet 75 mg PO DAILY Qty: 90 3RF Referrals / Follow Up: Daron Benton MD [Primary Care Provider] - Within 1 Week Disposition Disposition (needs filled in before D/C Order can be placed): Home Health Service Charges/Coding Visit Charges Inpatient E&M: 45504 Disch Hosp >30min
== END 2023-12-07 14:46 | disposition home health service (06) | DRG 58 ==
LOC: ED 11:34 → MS3 11:47 → PCU 12-03 07:30 → ICU 12-03 23:34
PROVIDERS: Internal Medicine Critical Care Medicine; Admitting Provider Internal Medicine; Emergency Provider Emergency Medicine; PCP Family Medicine; Visit Provider Family Medicine
DX: G35 Multiple sclerosis (principal); J69.0 Pneumonitis due to inhalation of food and vomit; G93.40 Encephalopathy, unspecified; N30.00 Acute cystitis without hematuria; I73.9 Peripheral vascular disease, unspecified; I48.0 Paroxysmal atrial fibrillation; L40.50 Arthropathic psoriasis, unspecified; I10 Essential (primary) hypertension; E89.0 Postprocedural hypothyroidism; I65.23 Occlusion and stenosis of bilateral carotid arteries; D64.9 Anemia, unspecified; E78.5 Hyperlipidemia, unspecified; I25.10 Atherosclerotic heart disease of native coronary artery without angina pectoris; I16.0 Hypertensive urgency; F17.210 Nicotine dependence, cigarettes, uncomplicated; R29.810 Facial weakness; G89.4 Chronic pain syndrome; R42 Dizziness and giddiness; R53.81 Other malaise; R53.1 Weakness; Z79.01 Long term (current) use of anticoagulants; Z79.02 Long term (current) use of antithrombotics/antiplatelets; Z79.890 Hormone replacement therapy; Z79.891 Long term (current) use of opiate analgesic; Z79.899 Other long term (current) drug therapy; Z86.73 Personal history of transient ischemic attack (TIA), and cerebral infarction without residual deficits; Z11.52 Encounter for screening for COVID-19
CPT/HCPCS: 36415; 36600; 70450; 70496; 70498; 70551; 71045; 74018; 80048; 80076; 81001; 82140; 82550; 82728; 82803; 82962; 83540; 83550; 83735; 84100; 84443; 85014; 85018; 85025; 87040; 87086; 87631; 92526; 92610; 93005; 95819; 97110; 97116; 97162; 97166; 97530; 97535; 99252; 99285; 99406; J7040; J7050; Q9967; A4216; G0463; J0295; J2405; J2930

== ENCOUNTER → 2023-12-21 | Outpatient (CLI) | payer MEDICARE, MEDICAID, SELFPAY ==
[2023-12-21 14:00] LABS: Hematocrit 32.2 % (37-47); Hemoglobin 9.9 g/dL (12.0-15.0)
--- OUTSIDE RECORDS SUMMARY | 2023-12-21 16:54 | XMS RPT_ITS | CCD ---
Author Name Unknown Address [address] [place] [address] Organization [facility] Care Team Providers Care Academic Affairs Dean Name Role Phone LYNNE LONGORIA Unavailable UnavailZHAEN Mancera Unavailable Unavailable LYNNE LONGORIA Unavailable Unavailable ZHANE DE Unavailable Unavailable ZHANE DE Unavailable Unavailable Jacinda Benton Primary Care Provider [phone] TYE BARNETT Attending Unavailable JACINDA BENTON Primary Care Unavailable MACEY MAIN Attending Unavailable JACINDA BENTON Primary Care Unavailable JAYANT LYNN Attending Unavailable JACINDA BENTON Primary Care Unavailable MACEY MAIN Attending Unavailable ESPERANZA JACINDA Primary Care Unavailable CRISSY SCHMITZ Attending Unavailable Allergies Allergy Classification Reported Allergen(s) Allergy Type Date of Onset Reaction(s) Facility (3 sources) Antihistamines; Translations: [ANTIHISTAMINES] Propensity to adverse reactions to drug (disorder) 04-28-20 04 [facility] Repository (2 sources) clopidogrel; Translations: [CLOPIDOGREL BISULFATE] Drug Allergy 12-18-19 12 [facility] (10 sources) codeine; Translations: [CODEINE] Drug Allergy 04-28-20 04 [facility] Repository (2 sources) fenofibrate; Translations: [FENOFIBRATE MICRONIZED] Drug Allergy 04-27-20 11 [facility]ository (9 sources) fentaNYL; Translations: [FENTANYL] Drug Allergy 02-19-20 12 [facility] (2 sources) Hmg-Coa Reductase Inhibitors (Statins); Translations: [SYZIWVD-FWZ-NJG REDUCTASE INHIBITORS] Propensity to adverse reactions to drug (disorder) 04-27-20 11 [facility]ository (10 sources) morphine; Translations: [MORPHINE] Drug Allergy 04-28-20 04 [facility] Repository (9 sources) predniSONE; Translations: [PREDNISONE] Drug Allergy 12-15-19 09 [facility] Repository (9 sources) salicylic acid; Translations: [SALICYLATES] Drug Allergy 12-04-19 09 [facility] Repository (1 source) Aspirin; Translations: [aspirin] Drug Allergy Ulcer (morphologic abnormality) [facility] (1 source) Colestipol; Translations: [colestipol] Drug Allergy [facility] (1 source) HMG-CoA reductase inhibitor; Translations: [statins] Drug allergy [facility] (7 sources) Amitriptyline Drug Allergy 03-12-20 19 Rash [facility] (7 sources) clopidogrel Drug Allergy 12-18-19 12 [facility] (7 sources) Fenofibrate Drug Allergy 04-27-20 11 [facility] (7 sources) Antihistamines, Diphenhydramine-T ype Drug Intolerance 09-17-20 [facility] Medications Current Medications Medication Drug Class(es) Dates Sig (Normalized) Sig (Original) baclofen 20 mg oral tablet (9 sources) gamma-Aminobutyric Acid-ergic Agonist Start: 10-05-2022 End: 07-15-2023 take 1 tablet by mouth every eight hours as needed for muscle spasms baclofen (Lioresal) 20 MG tablet Indications: Multiple sclerosis (HCC) Take 1 tablet (20 mg) by mouth every 8 hours as needed for muscle spasms. 90 tablet 5 06/15/2023 Active cholecalciferol 0.125 mg oral capsule (7 sources) Vitamin D Start: 02-27-2022 take 1 capsule by mouth in the morning cholecalciferol (Vitamin D-3) 125 MCG (5000 UT) capsule Take 125 mcg by mouth in the morning. 0 02/27/2022 Active clopidogrel 75 mg oral tablet (8 sources) P2Y12 Platelet Inhibitor Start: 08-15-2022 clopidogrel (Plavix) 75 MG tablet DULoxetine 30 mg delayed release oral capsule (8 sources) Serotonin and Norepinephrine Reuptake Inhibitor Start: 04-04-2023 End: 05-10-2023 take 1 capsule by mouth once daily DULoxetine (Cymbalta) [address] capsule take 1 capsule by mouth once daily DO NOT CRUSH OR CHEW 90 capsule 2 05/10/2023 Active gabapentin 800 mg oral tablet (9 sources) Anti-epileptic Agent Start: 10-05-2022 End: 07-04-2023 take 1 tablet by mouth three times daily gabapentin (Neurontin) 800 MG tablet Indications: Multiple sclerosis (HCC) Take 1 tablet (800 mg) by mouth 3 times daily. 90 tablet 5 06/04/2023 Active levothyroxine sodium 0.075 mg oral tablet (8 sources) l-Thyroxine Start: 11-07-2022 levothyroxine 75 mcg (0.075 mg) oral tablet Dose : 75 mcg = 1 tab(s), Oral, qDay, # 30 tab(s), 0 Refill(s) Start Date: 11/07/22 Status: Ordered Problems Active Problems Problem Classification Problem Date Documented Date Episodic/Chronic Blindness and vision defects (4 sources) Visual disturbance; Translations: [Unspecified visual disturbance] Onset: 12-14-2023 12-14-2023 Episodic Conditions associated with dizziness or vertigo (4 sources) Dizziness; Translations: [Dizziness and giddiness] Onset: 12-14-2023 12-14-2023 Episodic Essential hypertension (3 sources) Essential hypertension; Translations: [Essential (primary) hypertension] Onset: 10-05-2023 10-05-2023 Chronic Multiple sclerosis (7 sources) Multiple sclerosis; Translations: [Multiple sclerosis] Onset: 10-05-2023 06-04-2023 Chronic Occlusion or stenosis of precerebral arteries (3 sources) Occlusion and stenosis of bilateral carotid arteries; Translations: [Occlusion and stenosis of bilateral carotid arteries] Onset: 12-21-2017 Chronic Other and ill-defined cerebrovascular disease (2 sources) Cerebrovascular disease; Translations: [Cerebrovascular disease, unspecified] Onset: 10-05-2023 10-05-2023 Chronic Other and ill-defined cerebrovascular disease (1 source) Cerebrovascular disease, unspecified; Translations: [Cerebrovascular disease, unspecified] Onset: 10-05-2023 Chronic Other nervous system disorders (2 sources) Impairment of balance; Translations: [Other abnormalities of gait and mobility] 12-14-2023 Episodic Other nervous system disorders (2 sources) Other abnormalities of gait and mobility; Translations: [Other abnormalities of gait and mobility] Onset: 12-14-2023 Episodic Peripheral and visceral atherosclerosis (2 sources) Peripheral [...] Vital Sign Value Performing Clinician Faci lity 12-14-2023 13:43-0500 Body mass index (BMI) [Ratio] 19.37 kg/m2 Jayant Navas INFORMATION ASSURANCE ENGINEER - SUPERVISOR TYPE DISK QUALITY CONTROL Work Phone: [facility] [place] 12-14-2023 13:43-0500 Body weight 54.43 kg Jayant Navas INFORMATION ASSURANCE ENGINEER - SUPERVISOR TYPE DISK QUALITY CONTROL Work Phone: [facility] 12-14-2023 13:43-0500 Diastolic blood pressure 78 mm[Hg] Jayant Navas INFORMATION ASSURANCE ENGINEER - SUPERVISOR TYPE DISK QUALITY CONTROL Work Phone: [facility] 12-14-2023 13:43-0500 Heart rate 66 /min Jayant Lynn INFORMATION ASSURANCE ENGINEER - SUPERVISOR TYPE DISK QUALITY CONTROL Work Phone: [facility] 12-14-2023 13:43-0500 Systolic blood pressure 186 mm[Hg] Jayant Navas INFORMATION ASSURANCE ENGINEER - SUPERVISOR TYPE DISK QUALITY CONTROL Work Phone: [facility] 11-09-2022 14:07-0500 Diastolic Blood Pressure Non-Invasive 66 1 TYE BARNETT MD [facility] 11-09-2022 14:07-0500 Heart rate 56 /min TYE BARNETT MD [facility] 11-09-2022 14:07-0500 Systolic Blood Pressure Non-Invasive 155 1 TYE BARNETT MD [facility] 11-09-2022 13:42-0500 Diastolic Blood Pressure Non-Invasive 69 1 TYE BARNETT MD [facility] 11-09-2022 13:42-0500 Heart rate 58 /min TYE BARNETT MD [facility] 11-09-2022 13:42-0500 Systolic Blood Pressure Non-Invasive 156 1 TYE BARNETT MD [facility] 11-09-2022 13:14-0500 Diastolic Blood Pressure Non-Invasive 86 1 TYE BARNETT MD [facility] 11-09-2022 13:14-0500 Heart rate 54 /min TYE BARNETT MD [facility] 11-09-2022 13:14-0500 Systolic Blood Pressure Non-Invasive 175 1 TYE BARNETT MD [facility] 11-09-2022 11:25-0500 Reason For Taking VItal Signs TYE BARNETT MD [facility] 11-09-2022 11:25-0500 Respiratory rate 16 /min TYE BARNETT MD [facility] 11-09-2022 11:03-0500 Respiratory rate 16 /min TYE BARNETT MD [facility] 11-09-2022 10:38-0500 Respiratory rate 16 /min TYE BARNETT MD [facility] 11-09-2022 06:29-0500 Blood Pressure Location TYE BARNETT MD [facility] 11-09-2022 06:29-0500 Body height 167.6 cm TYE BARNETT MD [facility] 11-09-2022 06:29-0500 Body temperature 97.7 [degF] TYE BARNETT MD [facility] 11-09-2022 06:29-0500 Body weight 54.8 kg TYE BARNETT MD [facility] 11-09-2022 06:29-0500 Body weight 19.51 kg/m2 TYE BARNETT MD [facility] Encounters Encounter Date Encounter Type Care Provider Facility Start: 12-14-2023 End: 12-14-2023 ambulatory JACINDA BENTON [facility] Start: 12-14-2023 End: 12-14-2023 Office outpatient visit 40 minutes Jayant Lynn INFORMATION ASSURANCE ENGINEER - SUPERVISOR TYPE DISK QUALITY CONTROL Work Phone: [facility] Procedures Date Procedure Procedure Detail Performing [...] Care Activity Detail Author Start: 02-09-2031 DTaP/Tdap/Td Vaccines (3 - Td or Tdap) DTaP/Tdap/Td Vaccines (3 - Td or Tdap) [facility] Start: 01-25-2024 End: 01-25-2024 Patient encounter procedure 01/25/2024 12:30 PM EST Office Visit [facility] [address] [place] [address] Jayant Lynn, INFORMATION ASSURANCE ENGINEER - SUPERVISOR TYPE DISK QUALITY CONTROL [address] [place] [address] [facility] Start: 07-20-2023 COVID-19 Vaccine ( season) COVID-19 Vaccine ( season) [facility] Start: 07-20-2023 Influenza vaccination Influenza Vaccine (#1) [facility] Start: 04-19-2021 Lipid panel Lipid Panel [facility] Start: 2014 RSV Immunization aged 60 or older (1 - 1-dose 60+ series) RSV Immunization aged 60 or older (1 - 1-dose 60+ series) [facility] Start: 08-19-2009 Pneumococcal Vaccine: 65+ Years (2 - PCV) Pneumococcal Vaccine: 65+ Years (2 - PCV) [facility] Start: 08-19-2009 Pneumococcal Vaccine: 65+ Years (2 of 2 - PCV) Pneumococcal Vaccine: 65+ Years (2 of 2 - PCV) [facility] Start: 2004 Zoster Vaccines (1 of 2) Zoster Vaccines (1 of 2) [facility] Start: 1994 Screening for malignant neoplasm of breast Mammogram [facility] Start: 1972 Diabetes mellitus screening Diabetes Screening [facility] Start: 1972 Hepatitis C screening Hepatitis C Screening [facility] Start: 1966 Depression Screening Depression Screening [facility] Start: 1955 Medicare Advantage Annual Wellness Visit (AWV) Medicare Advantage Annual Wellness Visit (AWV) [facility] Start: 1955 Screening for malignant neoplasm of colon [facility] Start: 1955 Screening for osteoporosis Bone Density Scan [facility] Start: 1955 Thyroid stimulating hormone measurement TSH Level [facility] Immunizations Immunization Date Immunization Notes Care Provider Fa cility 09-16-2022 influenza virus vacc ine, unspecified formulation Macey Main MD Work Phone: [facility] Payers Date Payer Category Payer Medicare [id number] 2022 Medicare [employer] [id number] 2022-Present [address] [place] [address] Medicare HMO [id number] 1955 Unknown [id number] Social History Date Type Detail Facility Tobacco smoking status NHIS Smokes tobacc o daily [facility] History of tobacco use Cigarette Smoker [facility] Start: 04-04-2023 End: 12-14-2023 Alcohol intake Ex-drinker (finding) [facility] Start: 04-04-2023 End: 10-05-2023 History of Social function [facility] Start: 04-04-2023 End: 10-05-2023 Tobacco use panel [facility] Start: 1955 Sex Assigned At Not on file [facility] Functional Status Date Assessment Result Facility 11-09-2022 Functional Status Ambulating in room [facility] 11-09-2022 Functional Status [facility] 11-09-2022 Functional Status Maintained [facility] Mental Status Date Assessment Result Facility 11-09-2022 Mental Status Orientation Oriented x 4 [facility] 11-09-2022 Mental Status [facility] 11-09-2022 Mental Status [facility] Clinical Notes 02-09-2021 to 12-14-2023 Jayant Lynn APRN - SUPERVISOR TYPE DISK QUALITY CONTROL - 12/14/2023 2:00 PM ESTPatient Maryan Main MD - 10/05/2023 3:00 PM ESTTelephone Encounter - Yanely Kwon MA - 10/05/2023 12:58 PM EST Note Date & Type Note Facility 12-14-2023 History of Present illness Narrative Visit type: Established Patient Reason for Visit: Follow-up, Dizziness, and Extremity Weakness Assessment and Plan 1. Multiple sclerosis (HCC) - predniSONE (Deltasone) 20 MG tablet; Take 5 tablets on day one, 4 tablets on day 2, 3 tablets on days 3, 2 tablets on day 4, then 1 tablet on day 5 No refills, Print 2. Dizziness - External referral to Physical Therapy 3. Imbalance - External referral to Physical Therapy 4. Vision disturbance - External referral to Ophthalmology Subjective HPI: Follow up after hospital: Pt states she presented to [facility] with dizziness, feeling unbalanced, high BP (200/100); and pain in back (chronic pain that had worsened). States her BP was treated and scanned my heart and sent her home. Added Elequis, but patient refuses to take because causes stomach pains. Was taken off lisinopril. Added metropolol, but hasn't been taking the metropolol the past couple of days though because BP was getting too low. Symptoms remained so she went back to ER for same thing. Was given IV solumedrol; unsure how much solumedrol she received. From [place] records: CT brain 12/02/23: no acute intracranial abnormality; no interval change MRIbrain 12/05/23: no evidence for acute infarct; mild chronic involutional and white matter changes Treated for acute cystitis; recent diagnosis of influenza A 3 days of steroid burst for possible MS flare Today, patient still feels dizzy, unbalanced, and double vision left eye with fuzzy areas in the vision; symptoms never improved at all after solumedrol dose. Right side of face is numb near jaw and little on the left side. Needing to use walker in house now because unbalanced. States has weakness in both arms and tingling in both shoulders, but attributes that to a pinched nerve in neck. States Dizziness is constant x 1 week; but then she states if she sits or lies down and closes her eyes, the dizziness calms down until she get up and moves. Do you have to be up to have the dizziness or can you have the dizziness when seated or lying down? no When you have an attack of dizziness how long does it last? Seconds: vestibular paroxysmia, cardiogenic dizziness (Less than 2 minutes)? No Minutes: vertebrobasilar transient ischemic attack (TIA), vestibular migraine, panic disorder, delayed orthostatic hypotension, hypoglycemia (2 min-60 min)? No Hours: vestibular migraine, M ni re disease, toxic/metabolic (Over an hour)? No Days: vestibular migraine? Yes Do you feel like things are moving in when you know they are actually still? Yes, kind of like a wavy Do you have otalgia? No Do you have tinnitus? No If so, which ear? Left/Right Do you get dizzy turning your head? yes Do you have trouble with dizziness getting up from a chair or from a seat? yes Have you had falls? No, because using walker Is there any vision change with the dizziness? Double vision left eye Do you have headache associated with the dizziness? Pressure in head Have you had hearing loss with your dizziness? No REVIEW OF SYSTEMS: Review of Systems Constitutional: Negative. HENT: Negative. Eyes: Negative. Respiratory: Negative. Cardiovascular: Negative. Gastrointestinal: Negative. Endocrine: Negative. Genitourinary: Negative. Musculoskeletal: Positive for neck pain. Allergic/Immunologic: Negative. Neurological: Positive for dizziness and weakness. Hematological: Negative. Psychiatric/Behavioral: Negative. Allergies Allergen Reactions Antihistamines, Diphenhydramine-Type Clopidogrel Other reaction(s): Other: See Comments Heartburn Codeine nausea Fenofibrate Other reaction(s): Intolerance Fentanyl Other reaction(s): Other: See Comments Sweating/ Flushing Morphine nausea and vomiting Prednisone Destroyed bone. Salicylates Amitriptyline Rash Outpatient Medications Prior to Visit Medication Sig Dispense Refill cholecalciferol (Vitamin D-3) 125 MCG (5000 UT) capsule Take 125 mcg by mouth in the morning. clopidogrel (Plavix) 75 MG tablet gabapentin (Neurontin) 800 MG tablet Take 1 tablet (800 mg) by mouth 3 times daily. 90 tablet 5 levothyroxine (Synthroid, Levoxyl) 50 MCG tablet oxyCODONE (Roxicodone) 10 MG immediate release tablet Take 10 mg by mouth 3 times daily as needed. baclofen (Lioresal) 20 MG tablet Take 1 tablet (20 mg) by mouth every 8 hours as needed for muscle spasms. 90 tablet 5 DULoxetine (Cymbalta) [address] capsule take 1 capsule by mouth once daily DO NOT CRUSH OR CHEW (Patient not taking: Reported on 10/05/2023) 90 capsule 2 lisinopril 10 MG tablet Take 10 mg by mouth daily. metoprolol succinate XL (Toprol-XL) 25 MG 24 hr tablet Take 25 mg by mouth in the morning. tiZANidine (Zanaflex) 4 MG tablet Take 1 tablet (4 mg) by mouth in the morning and 1 tablet (4 mg) at noon and 1 tablet (4 mg) before bedtime. (Patient not taking: Reported on 10/05/2023) 30 tablet 5 No facility-administered medications prior to visit. Past Medical History: Diagnosis Date Aneurysm (HCC) CAD (coronary artery disease) Carotid stenosis Multiple sclerosis (HCC) Social History Tobacco Use Smoking status: Every Day Packs/day: .25 Types: Cigarettes Smokeless tobacco: Never Substance Use Topics Alcohol use: Not Currently Past Surgical History: Procedure Laterality Date CAROTID ENDARTERECTOMY No family history on file. Objective Vitals: BP (!) 186/78 (BP Location: Right arm) Pulse 66 Wt 120 lb (54.4 kg) BMI 19.37 kg/m General Appearance: Patient is in no apparent distress. Head is normocephalic, atraumatic Cardiovascular: Regular rate and rhythm. No heart murmurs. No carotid bruit Neurologic: Mentation: Alert and oriented x 3 to person, place and time. Speech and Language: Speech and language normal Concentration and Attention: Concentration normal Memory: Memory normal Fund of Knowledge: Fund of knowledge normal Cranial Nerves: II, III, IV, V, , VII, VIII, IX, X, XI, XII examined and were intact. EOM: versions full; cover/uncover and alternating cover test NL Nystagmus with head positions Motor: Strength: Strength 5 out of 5 with normal tone in upper extremities; lower extremities diffusely weak Alternating Movements: Normal Cogwheel Rigidity: None Tone: Tone is normal Tremor / Involuntary Movements: None Deep Tendon Reflexes: 1 out of 4 symmetrical in all four limbs. Sensory: Normal sensation in face Coordination: Normal coordination upper and lower extremities Gait and Station: Station is normal. Gait is abnormal; uses walker Data Reviewed and Summarized DIAGNOSTIC TESTING CBC: [...] TSH VITAMIN B12: No results found for: [id number] No results found for: PHENYTOIN , PHENOBARB , VALPROATE , CBMZ No components found for: TOPIRA @RESULTINGLABINFO@ No results found for: LEVETIRACETA , FERRITIN , CRP , DENNIS , ANCA No results found for: CHRISTIANO , IMMUNOGLOBUL , OLIGOBANDS No results found for: [id number] , HEPCAB No results found for: CRP , ANATITER , ANCA FERRITIN: No results found for: FERRITIN ---- ECG 12 lead SINUS BRADYCARDIA PROBABLE LEFT ATRIAL ABNORMALITY No previous ECG available for comparison Electronically Signed On 04-05-2023 7:42:10 EDT by Juvenal Benton @[email or web address]@ IMPRESSION and PLAN: Problem List Items Addressed This Visit None Visit Diagnoses Multiple sclerosis (HCC) - Primary Relevant Medications predniSONE (Deltasone) 20 MG tablet Dizziness Relevant Orders External referral to Physical Therapy Imbalance Relevant Orders External referral to Physical Therapy Vision disturbance Relevant Orders External referral to Ophthalmology Prednisone 20mg: take 5 tablets on day 1, 4 tablets on day 2, 3 tablets on day 3, 2 tablets on day 4, and 1 tablet on day 5 MRI from [facility] does not show reason for this; exam consistent with vertigo; will order vestibular theapy Vestibular therapy Referral to [facility]. No problem-specific Assessment & Plan notes found for this encounter. ANTWON Harrington CNP I spent 60 minutes caring for this patient today, reviewing labs, records, seeing the patient, documenting in the record and arranging for studies. Electronically signed by ANTWON Harrington CNP on @TDNR@ at @NOWNR@ documented in this encounter [facility] 12-14-2023 Instructions ANTWON Harrington CNP - 12/14/2023 2:00 PM EST Prednisone 20mg: take 5 tablets on day 1, 4 tablets on day 2, 3 tablets on day 3, 2 tablets on day 4, and 1 tablet on day 5 Vestibular therapy at [facility] [phone] [facility] for eye exam: [phone] documented in this encounter [facility] 10-05-2023 History of Present illness Narrative Images from the original note were not included. [facility] [address] [place] [address] [facility] [address] Dept: [phone] Dept Loc: [phone] Patient was seen today via Telehealth by agreement and consent. I used the following Telehealth technology: Audio capability only. Total length of call 30 minutes. The patient was offered and advised video for a more comprehensive evaluation, but the patient declined or was unable to use video. Patient location: VV Patient Location: Home. This patient encounter is [...] stated that they are currently in the state [facility]. If the patient is a minor, [...] TSH VITAMIN B12: No results found for: [id number] No results found for: PHENYTOIN , PHENOBARB , VALPROATE , CBMZ No results found for: LEVETIRACETA , FERRITIN , CRP , DENNIS , ANCA FERRITIN: No results found for: FERRITIN @RESULTINGLABINFO@ No components found for: TOPIRA No results found for: CHRISTIANO , IMMUNOGLOBUL , OLIGOBANDS No results found for: [id number] , HEPCAB No results found for: CRP , ANATITER , ANCA ---- @LASTAPPOINTMENTTHISPROV@ ECG 12 lead SINUS BRADYCARDIA PROBABLE LEFT ATRIAL ABNORMALITY No previous ECG available for comparison Electronically Signed On 04-05-2023 7:42:10 EDT by Juvenal Benton Patient Name: [facility] 1955 [id number] Exam Date/Time: 04/04/2023 15:32 Procedure: CT HEAD [...] volume rendered reformats were obtained using a [employer] workstation. Review of the axial source data [...] of the major intracranial arteries at the [place] [facility] [place]. 6. No hemodynamically significant narrowing [...] arranging for studies. documented in this encounter [facility] 10-05-2023 Telephone encounter Note Patient has been scheduled and records are being faxed over. [facility] 10-05-2023 Miscellaneous Notes Patient has been scheduled and records are being faxed over. Get records from [facility]. OK to add her on at 3 PM as a real or a virtual visit Name of caller: Angélica Contact phone number: [phone] Relationship to Patient: patient Provider: DR Main Practice: [facility] Chief Complaint/Reason for Call: pt was at [facility] yesterday for an MS attack she is asking for IV steroids order infusion. She was started at the hospital and will need additional steroids. Please advise when order placed. Best time of day caller can be reached: AM Patient advised that office/PCP has 24-48 business hours to return their call: Yes documented in this encounter [facility] 10-05-2023 Telephone encounter Note Get records from [facility]. OK to add her on at 3 PM as a real or a virtual visit [facility] 10-05-2023 Telephone encounter Note Name of caller: Angélica Contact phone number: [phone] Relationship to Patient: patient Provider: DR Main Practice: [facility] Chief Complaint/Reason for Call: pt was at [facility] yesterday for an MS attack she is asking for IV steroids order infusion. She was started at the hospital and will need additional steroids. Please advise when order placed. Best time of day caller can be reached: AM Patient advised that office/PCP has 24-48 business hours to return their call: Yes [facility] 06-15-2023 Telephone encounter Note Medication name: baclofen (Lioresal) 20 MG tablet [[id number]] Order Details Dose: 20 mg Route: Oral [...] Original Order: baclofen (Lioresal) 20 MG tablet [[id number]] Providers Ordering and Authorizing Provider: Macey Main MD NEGRA #: [id number] Ordering User: Macey Main MD Pharmacy [id number] [phone] NEGRA #: -- Date of last office visit: 04/04/23 Date of next office visit: None Date of last refill: (see medication tab): 10/05/22 Updated/Validated preferred pharmacy: Yes Patient instructed to contact the pharmacy prior to picking up the medication: Yes [facility] 06-15-2023 Miscellaneous Notes Medication name: baclofen (Lioresal) 20 MG tablet [[id number]] Order Details Dose: 20 mg Route: Oral [...] Original Order: baclofen (Lioresal) 20 MG tablet [[id number]] Providers Ordering and Authorizing Provider: Macey Main MD NEGRA #: [id number] Ordering User: Macey Main MD Pharmacy [facility] #[id number] - [address] [phone] NEGRA #: -- Date of last office visit: 04/04/23 Date of next office visit: None Date of last refill: (see medication tab): 10/05/22 Updated/Validated preferred pharmacy: Yes Patient instructed to contact the pharmacy prior to picking up the medication: Yes documented in this encounter [facility] 06-04-2023 Telephone encounter Note Rx renewed [facility] 06-04-2023 Miscellaneous Notes Rx renewed Please [...] the medication: Yes documented in this encounter [facility] 06-04-2023 Telephone encounter Note Please advise. 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 ?Change your dressing as told by your [...] the contrast dye from your body. Take kzlr-gct-dffrnmj and prescription medicines only as told by [...] 05/24/2006 Document Revised: 10/18/2018 Document Reviewed: 10/10/2017 [employer] Patient Education 2020 [employer]. 11/09/2022 12:48:21 Moderate Conscious Sedation, Adult, Care [...] until you are awake and alert. Take grmi-vii-fcbfnks and prescription medicines only as told by [...] 08/26/2014 Document Revised: 10/18/2018 Document Reviewed: 02/24/2017 [employer] Patient Education 2020 [employer]. Follow Up Care 10/27/2022 15:58:56 With:TYE BARNETT MD, [facility], Surgery, Vascular Surgeons Address: [facility] [address] [address] When: Unknown Comments:Follow-up as scheduled [facility] 11-09-2022 Summary of episode note Discharge Instructions Thank you for allowing [facility] to assist you with your healthcare needs. The following is important discharge information regarding your hospital visit. 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 ? Change your dressing as told by [...] the contrast dye from your body. Take ptjk-xir-ajvwlqv and prescription medicines only as told by [...] 05/24/2006 Document Revised: 10/18/2018 Document Reviewed: 10/10/2017 [employer] Patient Education 2020 [employer] Moderate Conscious Sedation, Adult, Care After [...] until you are awake and alert. Take veyn-umm-wrjdhwj and prescription medicines only as told by [...] 08/26/2014 Document Revised: 10/18/2018 Document Reviewed: 02/24/2017 [employer] Patient Education 2020 [employer]. Additional Information VACCINATE! IT SAVES LIVES! Members of the community who have not yet received the COVID-19 vaccine and would like to receive it can visit one of [facility] vaccine clinics. There are many vaccine clinic locations within the [facility]. For locations and available times, please visit https://gettheshot.coronavirus.[place].gov/. It is important to note that some COVID mobile vaccine clinics are held outdoors and may be canceled in rainy or stormy conditions. To learn more about pediatric vaccinations (ages 5-11), we invite you to visit the [employer] [facility] webpage. https://www.akronYilu Ca[employer]u ([place] Information [employer].org/pa ges/3714-Rirlm-Avwsyghqmuh-Freque nsje-Iajcn-Oprpvnrwp.html To learn more about the COVID-19 vaccine, we invite you to visit the [facility] website for a list of frequently asked questions. https://milroyGlassBox/assets/Sebastian vb-rrg-Lkmkfthc/bsimk-Ycjwyvz-Umv quently_Asked-Questions.pdf [facility] Patient Portal Access Instructions: Stay connected with your healthcare team and access your personal medical information anytime with the [facility] Patient Portal.If you would like a full copy of your medical records, please contact the [facility] Medical Records Department, Sunday through Sunday between 8a.m. and 4:30p.m. Please follow the directions below to access the portal: 1.Access the email account you provided upon registration to the [facility].2.Look for an invitation email from [facility].3.Open the email and access the invitation link: Accept Invitation to [facility]4.Fill in the required duarte to create your account. Sign into [email or web address] with your username and password that you [...] you will allow to register on the [facility] Patient Portal for access to your information. You can also access the [facility] Patient Portal on the [employer] jennifer. Simply click on Health Records under Health Data and then click on the [employer] logo. HOW TO SAFELY DISPOSE OF PRESCRIPTION [...] Call your local pharmacy or go to http://bit.ly/3Y8Yt1x to find one close to you.3.Make use of household items: Use cat litter or old coffee grounds to dispose medications if other options are not available. Mix your drugs with these household products, seal them in an airtight container and throw it into the garbage. Call [facility]: [phone] to be sure your drugs can be [...] aware that I should contact my doctor. Patient/Glue Spreader Signature: Date/Time: Relationship to Patient: ____ Witness Name/Signature: Date/Time: [facility] 11-09-2022 Note ORIGINAL Images acquired, not reported on this accession number. [facility] 11-09-2022 Note ORIGINAL Images acquired, not reported on this accession number. [facility] 04-12-2021 Note HNO ID: [id number] Author: RT Sandra(Mayda) Service: ? Author Type: Movie Projectionist Type: Progress Notes Filed: 04/12/2021 2:14 PM [...] Exam(s) Completed: Head: Multiple Sclerosis SIGNATURE: RT Sandra(R) PATIENT NAME: Angélica Waller DATE: April 12, 2021 TIME: 2:13 PM [facility] 02-09-2021 Note HNO ID: [id number] Author: Alexander Regalado Service: ? Author Type: [...] wound at high risk for bone exposure. [facility] Evaluation + Plan note No data available for this section [facility] documented in this encounter [facility]* Diagnosis Multiple sclerosis (HCC) [facility] Multiple [facility] (HCC)- Primary Multiple sclerosis Cerebrovascular disease, unspecified Primary hypertension Unspecified essential hypertension documented in this encounter [facility]* Diagnosis Multiple sclerosis (HCC)- Primary Multiple sclerosis Dizziness Dizziness and giddiness Imbalance Abnormality of gait Vision disturbance Unspecified visual disturbance [facility] Consultation (Routine) - Pending Review Specialty Diagnoses / Procedures Referred By Hillary christie Referred To Contact Ophthalmology Diagnoses Vision disturbance Procedures [place] [facility]ICE[facility]OUTPATIENT [facility] 60 MINUTES Jayant Lynn APRN - CNP [address] [facility] [address] [place] [address] Cecilio Gibbs MD [address] [place] [phone] Referral ID Status Reason Start Date Expiration Date Visits Requested Visits Authorized [id number] Pending Review Specialty Services Required 12/14/2023 12/13/2024 1 1 * Therapy (Routine) - Pending Review Specialty Diagnoses / Procedures Referred By Hillary christie Referred To Contact Physical Therapy Diagnoses Dizziness Imbalance Procedures [place] OFFICE[facility]OUTPATIENT [facility] 60 MINUTES Jayant Lynn APRN - CNP [address] [facility] [address] [place] [phone] Referral ID Status Reason Start Date Expiration Date Visits Requested Visits Authorized [id number] Pending Review Eval and Treat 12/14/2023 06/11/2024 99 99 Scheduling Instructions Twice weekly x 4 weeks for dizziness and imbalance [facility] Health Summary Purpose Family History No [...] DATE CREATED AUTHOR AUTHOR'S ORGANIZ ATION 05/13/2018 [facility] DATE CREATED AUTHOR AUTHOR'S ORGANIZ ATION 12/13/2021 [facility] DATE CREATED AUTHOR AUTHOR'S ORGANIZ ATION 11/15/2023 [facility] ([place] DATE CREATED AUTHOR AUTHOR'S ORGANIZ ATION 12/18/2023 [facility] Care Team (unrecognized sect ion and content) Care Team Related Persons Name: BHAVIK HONG Name: LOLA HONG Reason for Visit (unrecogniz ed section and content) Reason Onset Date Comments Med Refill 06/04/2023 Reason Onset Date Comments Med Refill 06/15/2023 Reason Onset Date Comments Orders 10/05/2023 Reason Comments Hospital Follow-up Reason Comments Follow-up Dizziness Extremity Weakness Care Teams (unrecognized sec tion and content) Academic Affairs Dean Relationship Specialty Start Date End Date Jacinda Benton [address] [facility] [address] [place] [phone] PCP - General 06/23/20 Academic Affairs Dean Relationship Specialty Start Date End Date Jacinda Benton [address] [facility] [address] [place] [phone] PCP - General 06/23/20 Academic Affairs Dean Relationship Specialty Start Date End Date Jacinda Benton [address] [facility] [address] [place] [phone] PCP - General 06/23/20 Academic Affairs Dean Relationship Specialty Start Date End Date Jacinda Benton [address] [facility] [address] [place] [phone] PCP - General 06/23/20 FOR RECORDS PERTAINING [...] BE BASED ON THE PRIMARY CLINICAL RECORDS. [facility] [employer] [facility]. provides no warranty or guarantee of the accuracy or completeness of information in this document.
== END | disposition home or self-care (01) ==
LOC: LAB 13:48
PROVIDERS: PCP Family Medicine; Referring Provider Physician Assistant Medical; Visit Provider Physician Assistant Medical
DX: I48.91 Unspecified atrial fibrillation (principal); D64.9 Anemia, unspecified
CPT/HCPCS: 36415; 85014; 85018

== ENCOUNTER 2024-01-08 10:00 | Outpatient (RCR) | payer MEDICARE, MEDICAID, SELFPAY ==
--- NOTE | 2023-12-21 09:31 | HP.PTEVAL_ITS ---
Patient's Visit Information Visit Information Visit Information: ADY WALLER is a 68 year old F referred to Physical Therapy by JAYANT LYNN with a diagnosis of dizzyness, unsteady gait. Date of Evaluation: 12/21/23 Physical Therapist: Daron Amaro, DPT, OCS, CSCS Visit Plan Frequency: 2x /Week Duration: 4-6 Weeks Plan: 2x/week for 4-6 weeks for... positional check s and treatments/ex monitor oculomotor balance exercise to complement current LE strengthening being performed at home with her assistants. Work to I and dizzy free (back to premorbid) life. Subjective Subjective: [facility]. Got dizzy when she moved sam head after second hospital visit. Ran test at hospital for stroke(she has MS also) but those tests were OK. Given dose pack of medrol which helped. Threw up alot and hard to sit up. stayed hospital 5 days and still dizzyness at departure but manageable. Uses wh walker for long time now due to MS. Went to neurologist last week and crystals are out of alignment. Currently does not get sick anymore abut still feel off all the time. No spinning lately. Eye doctor said she was Ok. Sleep is not great but that is normal for her. Sleeps on R side all night. has chronic pain from OP in spine. 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 Spends day puzzles and lives in [facility] apartment, watches TV Basic ADL: I, has aid 2x/week for dishes and laundry. Has had that for long time. Walks a lot and now has helper to ex 4x/week. Objective Objective: Walks into PT with rollator walker mod I. Trasnfers with UE I, steps weak but able with two rails today mod I. Bed trasnfers I. Cervical aROM wFL and without pain, UE AROM WFL and 3/5 strenngth LE WFL aROM and strength 3/5 hips and knees and 3= ankles. FW and BW weight shift is poor, appears to have neuroapthic gait pattern when asked to walk without Ad which she can hesitantly for 5-8 steps. reflexes 1/3 patella and achilles Sensation LE at mild deficit distally(MS) - R Hallpiek deepak + L hallpike deepak for quick up torsional nystagmus and asymmetrical dizzyness. Treated with modifeid emelia adn then no dizzyness with second HD. Balance/Special Test Scores Functional Gait Assessment Score: 17 % Disability: 43.3400 CATSIB Score (Max score 120 seconds): 71 Dizziness Score: 76 Goals Goal 1:: Abolish dizzy feeling Goal Time Frame: 2-4 Weeks Goal 2:: Pt feel back to premorbid levels of balance and funciton Goal Time Frame: 4-6 Weeks Goal 3:: DHI score 18 or better Goal Time Frame: 4-6 Weeks Goal 4:: I management of condition Goal Time Frame: 4-6 Weeks Rehabilitation Potential Physical Therapy Diagnosis: Unsteady gait multifactorial MS, BPPV?, sedentarism Rehabilitation Potential: Fair Anticipated Interventions Patient/Client Instruction: Educate patient on: Condition and Plan of Care For the Purpose of:: To increase tolerance to activity/condition/position, To improve ability of physical actions for home/community/work/leisure and To improve safety with gait Therapeutic Exercise to Include: Strength training and Balance training Comment: vestibular treatments For the Purpose of:: To increase tolerance to activity/condition/position, To improve gait and locomotor functions and To improve health of tissue Text: Thank you for the opportunity to evaluate your patient. For Medicare and Medicare HMO plans, please review the plan of care and approve it. It will need to be FAXED BACK to us at [phone] for Medicare purposes. For Medicare only, by signing this I certify the plan of care. Please let me know if there are questions or concerns regarding this plan of care. Physician Signature: Date:
== END 2024-01-08 19:00 | disposition home or self-care (01) ==
LOC: PT 10:00
PROVIDERS: PCP Family Medicine
DX: R42 Dizziness and giddiness (principal); R26.89 Other abnormalities of gait and mobility
CPT/HCPCS: 97162; 97530

== ENCOUNTER 2024-01-11 02:13 | Emergency (ER) | payer MEDICARE, MEDICAID, SELFPAY ==
[2024-01-11] VITALS (17 sets, daily range): BP systolic 92–163; BP diastolic 57–115; PULSE 61–169; RESP 16–21; TEMP 36.4–36.9; O2SAT 85–99; BMI 20.1
--- NOTE | 2024-01-11 02:32 | EKG12_ITS ---
Test Reason : Blood Pressure : / mmHG Vent. Rate : 168 BPM Atrial Rate : 000 BPM P-R Int : 000 ms QRS Dur : 132 ms QT Int : 288 ms P-R-T Axes : 000 029 069 degrees QTc Int : 481 ms Critical Test Result: High HR Supraventricular tachycardia Non-specific intra-ventricular conduction block Minimal voltage criteria for LVH, may be normal variant ( [place] product ) Abnormal ECG Confirmed by OTILIA FOX, MAYI ([id number]), magazine editor SELAM BARRETO ([id number]) on 01/11/2024 1:08:27 PM Referred By: Confirmed By:MAYI BINGHAM MD
--- NOTE | 2024-01-11 02:32 | CT_ITS ---
INDICATION: trauma/fall EXAMINATION: CT CERVICAL SPINE - CT Spine Cervical W/O Contrast Injection TECHNIQUE: Helically acquired images were obtained of the cervical spine. 2D reformatted images were reviewed. A radiation dose optimization technique was used for this scan. IV Contrast dosage and agent: None. RADIATION DOSAGE (If Supplied By Facility): CTDIvol = ( 14.69 ) mGy, DLP = ( 312.65 ) mGycm COMPARISON: 1.15.2023 FINDINGS: VERTEBRAE: No fracture or traumatic subluxation. No discrete lytic or blastic abnormality. Straightening of the normal cervical lordosis, otherwise normal alignment. Normal craniocervical junction and cervicothoracic junction. DISCS and SPINAL CANAL: There is multilevel disc space narrowing with endplate osteophyte formation and facet arthropathy. No critical stenosis. NECK SOFT TISSUES: No prevertebral soft tissue swelling. There is no cervical adenopathy. Left to right common carotid bypass graft. LUNG APICES: Interstitial pulmonary edema. CT/Spine Cervical without Contras IMPRESSION: No evidence of acute cervical spinal fracture or traumatic malalignment. Electronically Signed: Roman Higuera MD at 3:49 EST Reading Location ID and State: [facility] / [place] Tel , Service support ,
--- NOTE | 2024-01-11 02:32 | RAD_ITS ---
INDICATION: fall EXAMINATION/TECHNIQUE: X-RAY - XR Chest 2 Views COMPARISON: 12/03/2023 FINDINGS: LINES/DEVICES: None. LUNGS: The lungs are well expanded. Bilateral perihilar bronchial wall thickening, No focal consolidation. No pleural effusion or pneumothorax. MEDIASTINUM AND CARDIOVASCULAR STRUCTURES: Cardiac silhouette not enlarged. Central airways and mediastinal contour are unremarkable. BONES AND SOFT TISSUES: Unremarkable. RAD/Chest PA and Lateral IMPRESSION: No focal consolidation or pneumothorax. Diffuse bronchial wall thickening as can be seen with bronchitis Electronically Signed: Roman Higuera MD at 3:36 EST ,
--- NOTE | 2024-01-11 02:32 | RAD_ITS ---
STUDY: X-RAY - PELVIS REASON FOR EXAM: Female, 68 years old. Pain R ischial tub, fall TECHNIQUE: One view of the pelvis was obtained. COMPARISON: None. FINDINGS: There is a non-specific bowel gas pattern. There is a visualized stent within the left groin suggesting superficial femoral artery stent. There are bilateral iliac artery stents. Normal bilateral iliac wings, sacroiliac joints and visualized sacrum. Normal visualized bilateral superior and inferior pubic rami. Normal pubic symphysis. Normal ischial tuberosities. Normal visualized right femoral head. Normal right acetabulum. There is mild articular joint space narrowing of the right hip. Normal visualized left femoral head. Normal left acetabulum. There is mild articular joint space narrowing of the left hip. RAD/Pelvis 1 or 2 Views IMPRESSION: Visualized, common iliac artery stents, left superficial femoral stent. No visualized fracture. Electronically Signed: Claribel Thomas MD at 4:26 EST Reading Location ID and State: [facility] / [place] Tel , Service support ,
--- NOTE | 2024-01-11 02:32 | CT_ITS ---
INDICATION: trauma/fall EXAMINATION: CT BRAIN - CT Head or Brain W/O Contrast Injection TECHNIQUE: Multiple axial images were obtained of the head without intravenous contrast. A radiation dose optimization technique was used for this scan. IV Contrast dosage and agent: None. RADIATION DOSAGE (If Supplied By Facility): CTDIvol = ( 44.99 ) mGy, DLP = ( 829.85 ) mGycm COMPARISON: Prior studies dated: 12/05/2019 FINDINGS: BRAIN PARENCHYMA: Embolization coil material suprasellar cistern, region of the ACOM. No intra- or extra-axial hemorrhage. No evidence of acute infarct. No intracranial mass or mass effect. There is preservation of the patel/white matter interface. Posterior fossa structures are unremarkable. Patchy periventricular and deep white matter hypoattenuation is consistent with mild small vessel ischemic change. CSF SPACES: No cerebral volume loss. No hydrocephalus. Basal cisterns are patent. CALVARIUM, SKULL BASE, PARANASAL SINUSES AND MASTOID AIR CELLS: Large right parieto-occipital subgaleal hematoma and scalp swelling. Calvarium intact. Paranasal sinuses and mastoid air cells are clear. Mastoid air cells and visualized paranasal sinuses are well aerated. The calvarium is intact. No discrete lytic or blastic abnormalities. ORBITS: Both globes, extraocular muscles, optic nerves and retrobulbar fat appear unremarkable. CT/Brain/Head without Contrast IMPRESSION: No acute intracranial finding. Electronically Signed: Roman Higuera MD at 3:51 EST ,
--- OUTSIDE RECORDS SUMMARY | 2024-01-11 02:36 | XMS RPT_ITS | CCD ---
Author Name Unknown Address [address] [facility] [address] [place] [address] Organization [facility] Care Team Providers Care Hearing Aid Repairer Name Role Phone LYNNE LONGORIA Unavailable UnavailZHANE Mancera Unavailable Unavailable LYNNE LONGORIA Unavailable Unavailable ZHANE DE Unavailable Unavailable ZHANE DE Unavailable Unavailable Jacinda Benton Primary Care Provider TYE BARNETT Attending Unavailable JACINDA BENTON Primary Care Unavailable MACEY MAIN Attending Unavailable JACINDA BENTON Primary Care Unavailable JAYANT LYNN Attending Unavailable JACINDA BENTON Primary Care Unavailable MACEY MAIN Attending Unavailable ESPERANZA JACINDA Primary Care Unavailable RCISSY SCHMITZ Attending Unavailable Allergies Allergy Classification Reported Allergen(s) Allergy Type Date of Onset Reaction(s) Facility (3 sources) Antihistamines; Translations: [ANTIHISTAMINES] Propensity to adverse reactions to drug (disorder) 04-28-20 04 [facility] Repository (2 sources) clopidogrel; Translations: [CLOPIDOGREL BISULFATE] Drug Allergy 12-18-19 12 [facility] Repository (10 sources) codeine; Translations: [CODEINE] Drug Allergy 04-28-20 04 [facility] Repository (2 sources) fenofibrate; Translations: [FENOFIBRATE MICRONIZED] Drug Allergy 04-27-20 11 [facility] Repository (9 sources) fentaNYL; Translations: [FENTANYL] Drug Allergy 02-19-20 12 [facility] Repository (2 sources) Hmg-Coa Reductase Inhibitors (Statins); Translations: [MMQDDMV-ZEN-QCE REDUCTASE INHIBITORS] Propensity to adverse reactions to drug (disorder) 04-27-20 11 [facility] Repository (10 sources) morphine; Translations: [MORPHINE] Drug Allergy 04-28-20 04 [facility] Repository (9 sources) predniSONE; Translations: [PREDNISONE] Drug Allergy 12-15-19 09 [facility] Repository (9 sources) salicylic acid; Translations: [SALICYLATES] Drug Allergy 12-04-19 09 [facility] Repository (1 source) Aspirin; Translations: [aspirin] Drug Allergy Ulcer (morphologic abnormality) [facility] (1 source) Colestipol; Translations: [colestipol] Drug Allergy [facility] (1 source) HMG-CoA reductase inhibitor; Translations: [statins] Drug allergy [facility] (7 sources) Amitriptyline Drug Allergy 03-12-20 19 Rash [facility] (7 sources) clopidogrel Drug Allergy 12-18-19 12 [facility] (7 sources) Fenofibrate Drug Allergy 04-27-20 11 [facility] (7 sources) Antihistamines, Diphenhydramine-T ype Drug Intolerance 09-17-20 [facility] Medications Current Medications Medication Drug [...] index (BMI) [Ratio] 19.37 kg/m2 Jayant Navas METAL OR WOOD BLOCKER - SUPPLY SPECIALIST Work Phone: [facility] [employer] 12-14-2023 13:43-0500 Body weight 54.43 kg Jayant Navas METAL OR WOOD BLOCKER - SUPPLY SPECIALIST Work Phone: [facility] [employer] 12-14-2023 13:43-0500 Diastolic blood pressure 78 mm[Hg] Jayant Navas METAL OR WOOD BLOCKER - SUPPLY SPECIALIST Work Phone: [facility] [employer] 12-14-2023 13:43-0500 Heart rate 66 /min Jayant Lynn METAL OR WOOD BLOCKER - SUPPLY SPECIALIST Work Phone: [facility] [employer] 12-14-2023 13:43-0500 Systolic blood pressure 186 mm[Hg] Jayant Navas METAL OR WOOD BLOCKER - SUPPLY SPECIALIST Work Phone: [facility] 11-09-2022 14:07-0500 Diastolic Blood Pressure Non-Invasive 66 1 TYE BARNETT MD [facility] 11-09-2022 14:07-0500 Heart rate 56 /min TYE BARNETT MD [facility] 11-09-2022 14:07-0500 Systolic Blood Pressure Non-Invasive 155 1 TYE BARNETT MD [facility] 11-09-2022 13:42-0500 Diastolic Blood Pressure Non-Invasive 69 1 TYE BARNETT MD [facility] 11-09-2022 13:42-0500 Heart rate 58 /min TYE BARNETT MD [facility] 11-09-2022 13:42-0500 Systolic Blood Pressure Non-Invasive 156 1 TYE BARNETT MD [facility] 11-09-2022 13:14-0500 Diastolic Blood Pressure Non-Invasive 86 1 TYE BARNETT MD [facility] 11-09-2022 13:14-0500 Heart rate 54 /min TYE BARNETT MD [facility] 11-09-2022 13:14-0500 Systolic Blood Pressure Non-Invasive 175 1 TYE BARNETT MD [facility] 11-09-2022 11:25-0500 Reason For Taking VItal Signs TYE BARNETT MD [facility] 11-09-2022 11:25-0500 Respiratory rate 16 /min TYE BARNETT MD [facility] 11-09-2022 11:03-0500 Respiratory rate 16 /min TYE BARNETT MD [facility] 11-09-2022 10:38-0500 Respiratory rate 16 /min TYE BARNETT MD [facility] 11-09-2022 06:29-0500 Blood Pressure Location TYE BARNETT MD [facility] 11-09-2022 06:29-0500 Body height 167.6 cm TYE BARNETT MD [facility] 11-09-2022 06:29-0500 Body temperature 97.7 [degF] TYE BARNETT MD [facility] 11-09-2022 06:29-0500 Body weight 54.8 kg TYE BARNETT MD [facility] 11-09-2022 06:29-0500 Body weight 19.51 kg/m2 TYE BARNETT MD [facility] Encounters Encounter Date Encounter Type Care Provider Facility Start: 12-14-2023 End: 12-14-2023 ambulatory JACINDA BENTON [facility] Start: 12-14-2023 End: 12-14-2023 Office outpatient visit 40 minutes Jayant Lynn METAL OR WOOD BLOCKER - SUPPLY SPECIALIST Work Phone: [facility] Procedures Date Procedure Procedure Detail Performing [...] DTaP/Tdap/Td Vaccines (3 - Td or Tdap) [facility] Start: 01-25-2024 End: 01-25-2024 Patient encounter procedure 01/25/2024 12:30 PM EST Office Visit [facility] [address] [place] [address] Jayant Lynn, METAL OR WOOD BLOCKER - SUPPLY SPECIALIST [address] [place] [address] [facility] Start: 07-20-2023 COVID-19 Vaccine ( season) COVID-19 Vaccine ( season) [facility] Start: 07-20-2023 Influenza vaccination Influenza Vaccine (#1) [facility] Start: 04-19-2021 Lipid panel Lipid Panel [facility] Start: 2014 RSV Immunization aged 60 or older (1 - 1-dose 60+ series) RSV Immunization aged 60 or older (1 - 1-dose 60+ series) [facility] Start: 08-19-2009 Pneumococcal Vaccine: 65+ Years (2 - PCV) Pneumococcal Vaccine: 65+ Years (2 - PCV) [facility] Start: 08-19-2009 Pneumococcal Vaccine: 65+ Years (2 of 2 - PCV) Pneumococcal Vaccine: 65+ Years (2 of 2 - PCV) [facility] Start: 2004 Zoster Vaccines (1 of 2) Zoster Vaccines (1 of 2) [facility] Start: 1994 Screening for malignant neoplasm of breast Mammogram [facility] Start: 1972 Diabetes mellitus screening Diabetes Screening [facility] Start: 1972 Hepatitis C screening Hepatitis C Screening [facility] Start: 1966 Depression Screening Depression Screening [facility] Start: 1954 Medicare Advantage Annual Wellness Visit (AWV) Medicare Advantage Annual Wellness Visit (AWV) [facility] Start: 1955 Screening for malignant neoplasm of colon [facility] Start: 1954 Screening for osteoporosis Bone Density Scan [facility] Start: 1955 Thyroid stimulating hormone measurement TSH Level [facility] Immunizations Immunization Date Immunization Notes Care Provider Fa cility 09-16-2022 influenza virus vacc ine, unspecified formulation Macey Main MD Work Phone: [facility] Payers Date Payer Category Payer Medicare [id number] 2022 Medicare [employer] [id number] 2022-Present [address] [place] [address] Medicare HMO [id number] 1955 Unknown [id number] Social History Date Type Detail Facility Tobacco smoking status NHIS Smokes tobacc o daily [facility] History of tobacco use Cigarette Smoker [facility] Start: 04-04-2023 End: 12-14-2023 Alcohol intake Ex-drinker (finding) [facility] Start: 04-04-2023 End: 10-05-2023 History of Social function [facility] Start: 04-04-2023 End: 10-05-2023 Tobacco use panel [facility] Start: 1955 Sex Assigned At Not on file [facility] Functional Status Date Assessment Result Facility 11-09-2022 Functional Status Ambulating in room [facility] 11-09-2022 Functional Status [facility] 11-09-2022 Functional Status Maintained [facility] Mental Status Date Assessment Result Facility 11-09-2022 Mental Status Orientation Oriented x 4 [facility] 11-09-2022 Mental Status [facility] 11-09-2022 Mental Status [facility] Clinical Notes 02-09-2021 to 12-14-2023 Jayant Lynn APRN - SUPPLY SPECIALIST - 12/14/2023 2:00 PM ESTPatient Maryan Main [...] after hospital: Pt states she [facility] to [facility] with dizziness, feeling unbalanced, high BP (200/100); [...] unsure how much solumedrol she received. From [facility] records: CT brain 12/02/23: no acute intracranial [...] TSH VITAMIN B12: No results found for: [id number] No results found for: PHENYTOIN , PHENOBARB , VALPROATE , CBMZ No components found for: TOPIRA @RESULTINGLABINFO@ No results found for: LEVETIRACETA , FERRITIN , CRP , DENNIS , ANCA No results found for: CHRISTIANO , IMMUNOGLOBUL , OLIGOBANDS No results found for: SYX02WV , HEPCAB No results found for: CRP [...] order vestibular theapy Vestibular therapy Referral to [facility]. No problem-specific Assessment & Plan notes found for this encounter. ANTWON Harrington CNP I spent 60 minutes caring for this patient today, reviewing labs, records, seeing the patient, documenting in the record and arranging for studies. Electronically signed by ANTWON Harrington CNP on @TDNR@ at @NOWNR@ documented in this encounter [facility] 12-14-2023 Instructions ANTWON Harrington CNP - 12/14/2023 2:00 PM EST Prednisone 20mg: take 5 tablets on day 1, 4 tablets on day 2, 3 tablets on day 3, 2 tablets on day 4, and 1 tablet on day 5 Vestibular therapy at [facility] [phone] [facility] for eye exam: [phone] documented in this encounter [facility] 10-05-2023 History of Present illness Narrative Images from the original note were not included. [facility] [address] [facility] [address] Dept: [phone] Dept Loc: [phone] Patient was seen today via Telehealth by [...] that they are currently in the state [facility]. If the patient is a minor, permission [...] TSH VITAMIN B12: No results found for: [id number] No results found for: PHENYTOIN , PHENOBARB , VALPROATE , CBMZ No results found for: LEVETIRACETA , FERRITIN , CRP , DENNIS , ANCA FERRITIN: No results found for: FERRITIN @RESULTINGLABINFO@ No components found for: TOPIRA No results found for: CHRISTIANO , IMMUNOGLOBUL , OLIGOBANDS No results found for: TOH26KY , HEPCAB No results found for: CRP , ANATITER , ANCA ---- @LASTAPPOINTMENTTHISPROV@ ECG 12 lead SINUS BRADYCARDIA PROBABLE LEFT ATRIAL ABNORMALITY No previous ECG available for comparison Electronically Signed On 04-05-2023 7:42:10 EDT by Juvenal Benton [facility] 1955 [id number] Exam Date/Time: 04/04/2023 15:32 Procedure: CT HEAD [...] volume rendered reformats were obtained using a [employer] workstation. Review of the axial source data [...] of the major intracranial arteries at the [place] of [place]. 6. No hemodynamically significant narrowing [...] arranging for studies. documented in this encounter [facility] 10-05-2023 Telephone encounter Note Patient has been scheduled and records are being faxed over. [facility] 10-05-2023 Miscellaneous Notes Patient has been scheduled and records are being faxed over. Get records from [facility]. OK to add her on at 3 PM as a real or a virtual visit Name of caller: Angélica Contact phone number: [phone] Relationship to Patient: patient Provider: DR Main Practice: [facility] Chief Complaint/Reason for Call: pt was at [facility] yesterday for an MS attack she is asking for IV steroids order infusion. She was started at the hospital and will need additional steroids. Please advise when order placed. Best time of day caller can be reached: AM Patient advised that office/PCP has 24-48 business hours to return their call: Yes documented in this encounter [facility] 10-05-2023 Telephone encounter Note Get records from [facility]. OK to add her on at 3 PM as a real or a virtual visit [facility] 10-05-2023 Telephone encounter Note Name of caller: Angélica Contact phone number: [phone] Relationship to Patient: patient Provider: DR Main Practice: [facility] Chief Complaint/Reason for Call: pt was at [facility] yesterday for an MS attack she is asking for IV steroids order infusion. She was started at the hospital and will need additional steroids. Please advise when order placed. Best time of day caller can be reached: AM Patient advised that office/PCP has 24-48 business hours to return their call: Yes [facility] 06-15-2023 Telephone encounter Note Medication name: baclofen (Lioresal) 20 MG tablet [[id number]] Order Details Dose: 20 mg Route: Oral [...] Original Order: baclofen (Lioresal) 20 MG tablet [[id number]] Providers Ordering and Authorizing Provider: Macey Main MD NEGRA #: [id number] Ordering User: Macey Main MD Pharmacy [id number] [address] NEGRA #: -- Date of last office visit: 04/04/23 Date of next office visit: None Date of last refill: (see medication tab): 10/05/22 Updated/Validated preferred pharmacy: Yes Patient instructed to contact the pharmacy prior to picking up the medication: Yes [facility] 06-15-2023 Miscellaneous Notes Medication name: baclofen (Lioresal) 20 MG tablet [[id number]] Order Details Dose: 20 mg Route: Oral [...] Original Order: baclofen (Lioresal) 20 MG tablet [[id number]] Providers Ordering and Authorizing Provider: Macey Main MD NEGRA #: [id number] Ordering User: Macey Main MD Pharmacy [facility] #[id number] - [address] [address] NEGRA #: -- Date of last office visit: 04/04/23 Date of next office visit: None Date of last refill: (see medication tab): 10/05/22 Updated/Validated preferred pharmacy: Yes Patient instructed to contact the pharmacy prior to picking up the medication: Yes documented in this encounter [facility] 06-04-2023 Telephone encounter Note Rx renewed [facility] 06-04-2023 Miscellaneous Notes Rx renewed [...] the medication: Yes documented in this encounter [facility] 06-04-2023 Telephone encounter Note Please advise. [facility] 06-04-2023 Telephone encounter Note Medication [...] prior to picking up the medication: Yes [facility] 11-09-2022 Hospital Discharge instructions Patient [...] and water are not available, use hand menswear salesperson. ?Change your dressing as told by your [...] the contrast dye from your body. Take qqwu-yry-cohcbjn and prescription medicines only as told by [...] 05/24/2006 Document Revised: 10/18/2018 Document Reviewed: 10/10/2017 [employer] Patient Education 2020 [employer]. 11/09/2022 12:48:21 Moderate Conscious Sedation, Adult, Care [...] until you are awake and alert. Take zpmp-ofi-feqheag and prescription medicines only as told by [...] 08/26/2014 Document Revised: 10/18/2018 Document Reviewed: 02/24/2017 [employer] Patient Education 2020 [employer]. Follow Up Care 10/27/2022 15:58:56 With:TYE BARNETT MD, [facility], Surgery, Vascular Surgeons Address: [facility] [address] [address] When: Unknown Comments:Follow-up as scheduled [facility] 11-09-2022 Summary of episode note Discharge Instructions Thank you for allowing [facility] to assist you with your healthcare needs. The following is important discharge information regarding your hospital visit. What to do next Follow Up Appointments Follow Up with TYE BARNETT MD, [facility], Surgery, Vascular Surgeons When Why: Follow-up as scheduled Where: [facility] [place] [id number] The Following Activity and Diet Have Been [...] and water are not available, use hand menswear salesperson. ? Change your dressing as told by [...] the contrast dye from your body. Take rhra-gmj-ifhhwad and prescription medicines only as told by [...] 05/24/2006 Document Revised: 10/18/2018 Document Reviewed: 10/10/2017 [employer] Patient Education 2020 [employer] Moderate Conscious Sedation, Adult, Care After [...] until you are awake and alert. Take zrld-raj-bmlsshq and prescription medicines only as told by [...] 08/26/2014 Document Revised: 10/18/2018 Document Reviewed: 02/24/2017 [employer] Patient Education 2020 [employer]. Additional Information VACCINATE! IT SAVES LIVES! Members of the community who have not yet received the COVID-19 vaccine and would like to receive it can visit one of [facility] vaccine clinics. There are many vaccine clinic locations within the [facility]. For locations and available times, please visit [email or web address].[place].gov/. It is important to note that some COVID mobile vaccine clinics are held outdoors and may be canceled in rainy or stormy conditions. To learn more about pediatric vaccinations (ages 5-11), we invite you to visit the [facility] webpage. https://www.[employer].[email or web address]/pa ges/1923-Bzwuz-Lqqbfzzwoto-Freque kvkc-Nbprv-Lmyiruseq.html To learn more about the COVID-19 vaccine, we invite you to visit the [facility] website for a list of frequently asked questions. [email or web address] rj-eut-Pgolxabc/vimbf-Uzeesju-Khs quently_Asked-Questions.pdf [facility] Patient Portal Access Instructions: Stay connected with your healthcare team and access your personal medical information anytime with the [facility] Patient Portal.If you would like a full copy of your medical records, please contact the [facility] Medical Records Department, Sunday through Sunday between 8a.m. and 4:30p.m. Please follow the directions below to access the portal: 1.Access the email account you provided upon registration to the [facility].2.Look for an invitation email from [facility].3.Open the email and access the invitation link: Accept Invitation to [facility]4.Fill in the required duarte to create your account. Sign into [email or web address] with your username and password that you [...] you will allow to register on the [facility] Patient Portal for access to your information. You can also access the [facility] Patient Portal on the [email or web address] jennifer. Simply click on Health Records under [...] Call your local pharmacy or go to http://bit.ly/0H7Xw7c to find one close to you.3.Make use of household items: Use cat litter or old coffee grounds to dispose medications if other options are not available. Mix your drugs with these household products, seal them in an airtight container and throw it into the garbage. Call [facility]: [phone] to be sure your drugs can be [...] aware that I should contact my doctor. Patient/Junior Assistant Manager Signature: Date/Time: Relationship to Patient: ____ Witness Name/Signature: Date/Time: [facility] 11-09-2022 Note ORIGINAL Images acquired, not reported on this accession number. [facility] 11-09-2022 Note ORIGINAL Images acquired, not reported on this accession number. [facility] 04-12-2021 Note HNO ID: [id number] Author: RT Sandra(Mayda) Service: ? Author Type: Syrup Machine Laborer Type: Progress Notes Filed: 04/12/2021 2:14 PM [...] DATE: April 12, 2021 TIME: 2:13 PM [facility] 02-09-2021 Note HNO ID: [id number] Author: Alexander Regalado Service: ? Author Type: [...] wound at high risk for bone exposure. [facility] Evaluation + Plan note No data available for this section [facility] documented in this encounter [facility]* Diagnosis Multiple sclerosis (HCC) [facility] ([facility])- Primary Multiple sclerosis Cerebrovascular disease, unspecified Primary hypertension Unspecified essential hypertension documented in this encounter [facility]* Diagnosis Multiple sclerosis (HCC)- Primary Multiple sclerosis Dizziness Dizziness and giddiness Imbalance Abnormality of gait Vision disturbance Unspecified visual disturbance [facility] Consultation (Routine) - Pending Review Specialty Diagnoses / Procedures Referred By Hillary christie Referred To Contact Ophthalmology Diagnoses Vision disturbance Procedures TX OFFICE/OUTPATIENT NEW [facility] 60 MINUTES Jayant Lynn APRN - CNP [address] [facility] [address] [place] [address] Cecilio Gibbs MD [address] [place] [phone] Referral ID Status Reason Start Date Expiration Date Visits Requested Visits Authorized [id number] Pending Review Specialty Services Required 12/14/2023 12/13/2024 1 1 * Therapy (Routine) - Pending Review Specialty Diagnoses / Procedures Referred By Hillary christie Referred To Contact Physical Therapy Diagnoses Dizziness Imbalance Procedures TX OFFICE/OUTPATIENT NEW [facility] 60 MINUTES Jayant Lynn APRN - CNP [address] [facility] [address] [place] [phone] Referral ID Status Reason Start Date Expiration Date Visits Requested Visits Authorized [id number] Pending Review Eval and Treat 12/14/2023 06/11/2024 99 99 Scheduling Instructions Twice weekly x 4 weeks for dizziness and imbalance [facility] Health Summary Purpose Family History No [...] DATE CREATED AUTHOR AUTHOR'S ORGANIZ ATION 05/13/2018 [facility] DATE CREATED AUTHOR AUTHOR'S ORGANIZ ATION 12/13/2021 [facility] DATE CREATED AUTHOR AUTHOR'S ORGANIZ ATION 11/15/2023 [facility] ([place]) DATE CREATED AUTHOR AUTHOR'S ORGANIZ ATION 12/18/2023 [facility] Care Team (unrecognized sect ion and content) Care Team Related Persons Name: BHAVIK HONG Name: LOLA HONG Reason for Visit (unrecogniz ed section and content) Reason Onset Date Comments Med Refill 06/04/2023 Reason Onset Date Comments Med Refill 06/15/2023 Reason Onset Date Comments Orders 10/05/2023 Reason Comments Hospital Follow-up Reason Comments Follow-up Dizziness Extremity Weakness Care Teams (unrecognized sec tion and content) Hearing Aid Repairer Relationship Specialty Start Date End Date Jacinda Benton [address] [facility] [address] [place] [phone] PCP - General 06/23/20 Hearing Aid Repairer Relationship Specialty Start Date End Date Jacinda Benton [address] [facility] [address] [place] [phone] PCP - General 06/23/20 Hearing Aid Repairer Relationship Specialty Start Date End Date Jacinda Benton [address] [facility] [address] [place] [phone] PCP - General 06/23/20 Hearing Aid Repairer Relationship Specialty Start Date End Date Jacinda Benton [address] [facility] [address] [place] [phone] PCP - General 06/23/20 FOR RECORDS PERTAINING [...] BE BASED ON THE PRIMARY CLINICAL RECORDS. [facility] [employer] [facility]. provides no warranty or guarantee of the accuracy or completeness of information in this document.
--- NOTE | 2024-01-11 02:40 | EDS_ITS ---
HPI HPI - Fall History of Present Illness Chief Complaint: Fall Informant: patient Narrative Narrative: Patient presents by EMS after having 2 falls. She states she got up to use the bathroom in the middle of the night, upon getting out of bed she felt fine but upon entering her bathroom she felt very dizzy, causing her to fall against the wall bumping her head. She then crawled through the bathroom, continuing to feel dizzy, and when she tried to go to the bathroom and transition to sitting on the toilet, she fell again hitting the back of her head on the floor or the toilet. No loss of consciousness either time. She does not have an internal headache but has pain in the back of her head and her neck and points to her right buttock where she is having pain. No other symptoms. She states she has been dealing with crystals in her ears , following with neurology at [facility], and has been having dizziness related to that. Although initially she stated that she felt like she might pass out tonight, she later changes her historical details with regards to her dizziness saying that it felt similar to prior dizziness episodes that she associates with her ears but cannot describe those exact symptoms. She denies any recent illness. She is on clopidogrel. She does not know of any prior heart problems although they are listed in the EMR, stating the clopidogrel is because of PAD and associated stenting, 1 of which is in her abdomen and the other is in the leg. She also states she has osteoporosis. She is on no anticoagulants. [facility] Medical History Angina pectoris Bilateral carotid artery stenosis Chronic pain syndrome Coronary artery disease Essential (primary) hypertension Fatty liver GERD (gastroesophageal reflux disease) Goiter History of transient ischemic attack (TIA) HLD (hyperlipidemia) Hypothyroidism Influenza A Multiple sclerosis Multiple sclerosis Nonobstructive atherosclerosis of coronary artery Nonsustained paroxysmal supraventricular tachycardia Osteoarthritis Osteoporosis Peripheral vascular occlusive disease Psoriasis Psoriatic arthritis Smoker Thrombocytopenia TIA (transient ischemic attack) Home Medications cholecalciferol (vitamin D3) 125 mcg (5,000 unit) tablet 5,000 unit PO DAILY supplement 12/16/13 [History Last Taken 12/01/23] gabapentin 800 mg tablet 800 mg PO TID MS 07/16/18 [History Last Taken 12/01/23] baclofen 20 mg tablet 20 mg PO Q8H MS 08/11/21 [History Last Taken 12/01/23] levothyroxine 50 mcg tablet 50 mcg PO DAILY thyroid 08/11/21 [History Last Taken 12/01/23] oxycodone 10 mg tablet 10 mg PO Q6H PRN pain 05/24/23 [History Last Taken 12/01/23] clopidogrel 75 mg tablet 75 mg PO DAILY dose increased, pt is OUT of med, please fill #[phone] TABLETS 06/01/23 [Rx Last Taken 11/18/23] dextromethorphan-guaifenesin ER 60 mg-1,200 mg tab,extend release,12hr (Mucinex DM) 1 tab PO Q12H cough/congest 7 days #14 tabs 11/16/23 [Rx Last Taken 12/01/23] metoprolol tartrate 25 mg tablet 12.5 mg (1/2 x 25 mg) PO BID #30 tabs 12/10/23 [Rx Last Taken Unknown] famotidine 20 mg tablet 20 mg PO DAILY 12/21/23 [History Last Taken Unknown] Allergy/AdvReac Type Severity Reaction Status Date / Time colestipol [From Colestid] Allergy Mild unknown Verified 01/11/24 02:15 pregabalin [From Lyrica] Allergy Mild Hives Verified 01/11/24 02:15 amitriptyline Allergy Rash Verified 01/11/24 02:15 temazepam [From Restoril] AdvReac Mild Nausea/Vom/ Verified 01/11/24 02:15 Diarrhea Antihistamines - Alkylamine AdvReac Nausea/Vom/ Verified 01/11/24 02:15 Diarrhea Antihistamines - Ethanolamine AdvReac Nausea/Vom/ Verified 01/11/24 02:15 Diarrhea Antihistamines - AdvReac Nausea/Vom/ Verified 01/11/24 02:15 Ethylenediamine Diarrhea Antihistamines - Piperazine AdvReac Nausea/Vom/ Verified 01/11/24 02:15 Diarrhea Antihistamines - Piperidine AdvReac Nausea/Vom/ Verified 01/11/24 02:15 Diarrhea aspirin AdvReac I'M ON Verified 01/11/24 02:15 BLOOD THINNERS codeine AdvReac Nausea Verified 01/11/24 02:15 Corticosteroids AdvReac Upset Verified 01/11/24 02:15 (Glucocorticoids) Stomach morphine AdvReac Nausea Verified 01/11/24 02:15 Zysznad-HTI-JzF Reductase AdvReac Nausea Verified 01/11/24 02:15 Inhibitor [Zxavqyt-Tvi-Bqg Reductase Inhibitor] Family History Mother Cancer CAD (coronary artery disease) Brain tumor Grandfather CVA (cerebral vascular accident) Father CAD (coronary artery disease) Ruptured abdominal aortic aneurysm (AAA) Sister Brain aneurysm Surgical History Brain aneurysm Fracture of right lower leg H/O hemorrhoidectomy H/O: History of angioplasty of peripheral vessel History of angioplasty of peripheral vessel (07/11/19) History of appendectomy History of section History of cholecystectomy History of hemorrhoidectomy History of hysterectomy History of left breast biopsy History of left heart catheterization (01/25/15) History of left-sided carotid endarterectomy History of partial thyroidectomy (11/30/05) History of right-sided carotid endarterectomy S/P coil embolization of cerebral aneurysm S/P hysterectomy S/P insertion of iliac artery stent S/P thyroidectomy Stenosis of left subclavian artery Social History household members: none Smoking Status: Current every day smoker tobacco type: cigarettes alcohol intake: never caffeine: Yes Type: coffee and tea ROS ROS ED Constitutional Constitutional ED: Denies chills or fever(s) Eyes Eyes: Denies change in vision or diplopia ENT ENT ED: Reports as per HPI, disequillibrium, dizziness and other Details: States she felt like she was off balance ; Denies ear pain, epistaxis, facial pain or rhinorrhea Cardiovascular Cardiovascular: Denies chest pain or palpitations Respiratory/Chest Respiratory/Chest: Denies cough or dyspnea Gastrointestinal Gastrointestinal: Denies abdominal pain, diarrhea, melena, nausea or vomiting Genitourinary Genitourinary ED: Denies dysuria or hematuria Musculoskeletal Musculoskeletal: Reports neck pain and other Details: Pain right buttock/hip area ; Denies back pain or extremity pain Integumentary Denies abscess, Abrasions, laceration or rash Neurologic Neurologic: Denies confusion, headache(s), paresthesias or weakness EXAM Physical Exam Const Vital Signs: 01/11/24 02:14 01/11/24 02:14 01/11/24 02:21 Temperature 97.6 F L Temperature Source Temporal Pulse Rate 147 H Respiratory Rate 19 H Respiratory Effort Normal Non-Labored Respiratory Depth Normal Respiratory Pattern Normal Blood Pressure 158/115 H Blood Pressure Mean 129 Pulse Ox 86 85 Oxygen Delivery Method Room Air Room Air Room Air Oxygen Flow Rate (L/min) 86 01/11/24 02:23 01/11/24 02:28 01/11/24 02:32 Temperature Temperature Source Pulse Rate 134 H 169 H Respiratory Rate 20 H 20 H Respiratory Effort Respiratory Depth Respiratory Pattern Blood Pressure Blood Pressure Mean Pulse Ox 93 93 92 Oxygen Delivery Method Nasal Cannula Nasal Cannula Nasal Cannula Oxygen Flow Rate (L/min) 3 2 2 01/11/24 02:31 01/11/24 02:55 01/11/24 03:31 Temperature Temperature Source Pulse Rate 146 H 112 H Respiratory Rate 19 H 19 H Respiratory Effort Respiratory Depth Respiratory Pattern Blood Pressure 150/95 H 163/99 H 136/101 H Blood Pressure Mean 113 120 112 Pulse Ox 92 93 Oxygen Delivery Method Nasal Cannula Nasal Cannula Oxygen Flow Rate (L/min) 2 2 01/11/24 04:00 01/11/24 05:00 01/11/24 05:19 Temperature Temperature Source Pulse Rate 115 H 110 H 114 H Respiratory Rate 20 H 20 H 20 H Respiratory Effort Respiratory Depth Respiratory Pattern Blood Pressure 133/70 H 117/95 H 132/60 H Blood Pressure Mean 91 102 84 Pulse Ox 93 99 98 Oxygen Delivery Method Nasal Cannula Nasal Cannula Nasal Cannula Oxygen Flow Rate (L/min) 4 4 2 01/11/24 06:25 01/11/24 06:36 01/11/24 06:50 Temperature Temperature Source Pulse Rate 129 H 108 H 67 Respiratory Rate 21 H 20 H 19 H Respiratory Effort Respiratory Depth Respiratory Pattern Blood Pressure 119/70 103/80 93/60 Blood Pressure Mean 86 87 71 Pulse Ox 86 98 98 Oxygen Delivery Method Room Air Nasal Cannula Nasal Cannula Oxygen Flow Rate (L/min) 2 2 01/11/24 06:51 Temperature Temperature Source Pulse Rate 66 Respiratory Rate 18 Respiratory Effort Respiratory Depth Respiratory Pattern Blood Pressure 114/58 L Blood Pressure Mean 76 Pulse Ox 98 Oxygen Delivery Method Nasal Cannula Oxygen Flow Rate (L/min) 2 Positive well nourished and well developed General Appearance ED: well developed and NAD HEENT Reports TM's clear and nasal mucous membranes and turbinates normal HEENT Narrative: Tender hematoma right occiput with superficial abrasion (after cleansing and further exam, NO laceration) Face and Sinus: Negative for facial tenderness Tympanic Membrane ED: Yes TM's clear Eyes PERRL and EOMs intact bilaterally Visual Acuity: other Other Details: no entrapment or pain with extraocular movements Neck full ROM and supple Neck Narrative: Mild diffuse tenderness General: tenderness Chest Wall inspection of chest normal and palpation of chest normal Chest: symmetrical chest wall rise; Negative for crepitus or tenderness Resp normal respiratory effort and clear to auscultation bilaterally Percussion: other equal BS bilat Cardio Rate: tachycardic Rhythm: abnormal rhythm other (Tachycardic and regular, but at times is tachycardic and irregularly irregular) GI normal to inspection, nondistended, normoactive bowel sounds, soft to palpation and non-tender Back/Spine normal ROM Cervical Spine: Negative for cervical spine tenderness Thoracic Spine / Upper Back: Negative for thoracic spinal tenderness Lumbar Spine / Lower Back: Negative for lumbar spinal tenderness Extremity normal to inspection and full ROM Extremity Narrative: No tenderness at the right greater trochanter or the ASIS but mildly tender at the right ischial tuberosity. No other tenderness throughout the arms, legs, back, hips, pelvis. General Extremety ED: Negative for tenderness Neuro oriented x3, CN's II-XII intact bilaterally, moves all extremities, no focal motor deficits and no sensory deficits noted [place] Coma Scale: document GCS findings Spontaneous Obeys Commands Oriented 15 Sensorium / Orientation: awake and alert Psych mental status grossly normal and thought process normal Skin Lesions: no lesions Rashes: no rashes MDM MDM MDM Narrative Medical decision making narrative: Patient has tachycardia, the EKG does show that the QRS complex is slightly widened this is new compared with her prior, however, she is clinically and hemodynamically stable and has periods of time that were not captured on the EKG which she appears to be in a sinus rhythm and the rate goes down as low as 70. However tends to pick back up and become fast in the 160-170 range again. She has a history of paroxysmal atrial fibrillation as well as paroxysmal supraventricular tachycardia, both of which are in the differential diagnosis as is sinus tachycardia, MAT, ectopic atrial tachycardia, as well as ventricular dysrhythmias although the latter thought to be less likely given the P waves that I see occasionally on the monitor. Given all of this we initially attempted adenosine 6 mg in order to evaluate for A-fib/atrial flutter. Patient tolerated this well, she had sinus beats and no sign of atrial fibrillation or flutter. She recovered without difficulty and her tachycardia resumed. I asked the patient about her medications including the metoprolol 12.5 mg twice daily that is listed, initially she told the nurse that she has been taking it, then she changed her mind and said that she has not taken it tonight. It is between 2-3 AM. In reviewing the telemetry at this time, the complexes do not look wide, most of them look narrow now, and her heart rate is in the 160 range. Therefore we gave her metoprolol 5 mg IV. This slowed her down to the 120 range, appearing irregular, narrow-complex, more like afib; BP remained stable. For this reason and her lack of chest symptoms, although it was considered, it was felt that electrocardioversion was not necessary. I repeated EKG. It confirms, on my interpretation, a narrow complex mild tachycardia that is consistent with atrial fibrillation. Given her poor history / answering questions, and her leukocytosis, infections were considered in the workup, in addition to checking for injuries. CT of the head and cervical spine were obtained, I reviewed the images and the report which I agree with, negative for acute fracture / intracranial injury. 1 view pelvis x-ray my interpretation negative for fracture, and 2 view chest x-ray on my interpretation negative for pneumonia. She is complaining mostly about pain at the site of the hematoma on her scalp, she was given Tylenol and an ice pack for this. She denied having any further episodes or symptoms of dizziness. Patient finally able to provide urine, and it does not appear to show signs of infection. Her lactate is normal, consistent with absence of infection. On reevaluation her heart rate is still a little elevated 110-120, and it is close to time for her morning dose of metoprolol. I gave her a dose of metoprolol 5 mg IV while we wait for pharmacy to send up her usual oral dose, the parenteral dose dropped her pressure although it did help her rate, so we held off on the oral dose. Some IV fluids helped her pressure. While we were waiting for her to, more, she became somewhat hypoxic and with ambulation although she did okay she felt short of breath and this is the first time she told us that. I sent her for CTA of the chest, and on the way there, she converted to sinus rhythm on the monitor. Her blood pressure on recheck after returning from CT is 114 systolic. Repeated her EKG for third study, it now appears completely normal and similar to her old one. 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 This may explain some of her low pulse ox and blood pressure readings. They are now being taken both on the right side. Her pulse ox is 96-97% on room air, and her blood pressure is 93/60 and she is easily arousable. She is able to ambulate. She is still complaining about the pain in her right buttock/hip and the hematoma on the posterior scalp, but she is able to walk and was given Tylenol and ice for these. She is comfortable going home. I recommend following up with Dr. Nava as an outpatient. I reviewed outpatient records which showed she had angioplasty of the left subclavian artery stenosis in 2019. She needs to follow-up regarding this again. She is not having ischemic pain in her left arm, and she has a bounding left radial pulse at this time. History & Record Review Additional record(s) reviewed:: Prior outpatient record (prior Afib thought to h ave caused CVA/TIA, [id number] score of 4, prescribed Eliquis but patient self-discontinued it. Vascular: see above.) Lab Data Attestation: I reviewed the patient's lab results. Labs: Laboratory Results - last 24 hr 01/11/24 01/11/24 01/11/24 02:28 03:44 03:45 WBC 14.6 H RBC 3.75 L Hgb 10.2 L Hct 32.4 L MCV 86.4 MCH 27.2 MCHC 31.5 L RDW Std Deviation 48.4 H RDW Coeff of David 15.2 H Plt Count 308 MPV 9.2 Immature Gran % (Auto) 1.300 H Neut % (Auto) 85.1 H Lymph % (Auto) 5.2 L [place] % (Auto) 7.7 Eos % (Auto) 0.2 Baso % (Auto) 0.5 Absolute Neuts (auto) 12.4 H Absolute Lymphs (auto) 0.76 L Nucleated RBC % 0 Sodium 137 Potassium 3.9 Chloride 104 Carbon Dioxide 26.0 Anion Gap 7 BUN 18 Creatinine 1.07 H Estim Creat Clear Calc 43.08 Est GFR (MDRD) Af Amer 65 Est GFR (MDRD) Non-Af 54 L BUN/Creatinine Ratio 16.8 Glucose 159 H Lactic Acid 1.3 Calcium 9.1 Magnesium 2.1 Troponin I High Sens 11 Urine Color Yellow Urine Clarity Clear Urine pH 7.0 Ur Specific [place] 1.010 Urine Protein Negative Urine Glucose (UA) Normal Urine Ketones Negative Urine Occult Blood Negative Urine Nitrite Negative Urine Bilirubin Negative Urine Urobilinogen Normal Ur Leukocyte Esterase 25 H Urine RBC 0 SEEN Urine WBC 0 SEEN Ur Squamous Epith Cells 0 SEEN Urine Bacteria 0 SEEN Urine Mucus 0 SEEN 01/11/24 04:48 WBC RBC Hgb Hct MCV MCH MCHC RDW Std Deviation RDW Coeff of David Plt Count MPV Immature Gran % (Auto) Neut % (Auto) Lymph % (Auto) [place] % (Auto) Eos % (Auto) Baso % (Auto) Absolute Neuts (auto) Absolute Lymphs (auto) Nucleated RBC % Sodium Potassium Chloride Carbon Dioxide Anion Gap BUN Creatinine Estim Creat Clear Calc Est GFR (MDRD) Af Amer Est GFR (MDRD) Non-Af BUN/Creatinine Ratio Glucose Lactic Acid Calcium Magnesium Troponin I High Sens 17 Urine Color Urine Clarity Urine pH Ur Specific [place] Urine Protein Urine Glucose (UA) Urine Ketones Urine Occult Blood Urine Nitrite Urine Bilirubin Urine Urobilinogen Ur Leukocyte Esterase Urine RBC Urine WBC Ur Squamous Epith Cells Urine Bacteria Urine Mucus Radiography Diagnostic Testing: Clinical Impression(s) from Imaging Studies Brain CT 01/11/24 02:32 IMPRESSION: No acute intracranial finding. Electronically Signed: Roman Higuera MD at 3:51 EST , Cervical Spine CT 01/11/24 02:32 IMPRESSION: No evidence of acute cervical spinal fracture or traumatic malalignment. Electronically Signed: Roman Higuera MD at 3:49 EST , Chest X-Ray 01/11/24 02:32 IMPRESSION: No focal consolidation or pneumothorax. Diffuse bronchial wall thickening as can be seen with bronchitis Electronically Signed: Roman Higuera MD at 3:36 EST , Pelvis X-Ray 01/11/24 02:32 IMPRESSION: Visualized, common iliac artery stents, left superficial femoral stent. No visualized fracture. Electronically Signed: Claribel Thomas MD at 4:26 EST , Chest CTA 01/11/24 06:34 IMPRESSION: 1. No pulmonary embolism. 2. 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 Collateralization of the right common carotid artery with the left common carotid artery. 3. Severe stenosis of the left subclavian artery. 4. 3 mm left upper lobe pulmonary nodule. Per Fleischner criteria, recommend follow-up CT of the chest in 12 months if the patient has increased risk factors for lung cancer. Otherwise no follow-up is recommended. Electronically Signed: Cecilio Delacruz DO at 7:53 EST , Rhythm Strip Rhythm Strip: wide-complex tachycardia, occ w/ P waves Rate: 170 Ectopy: None EKG Initial EKG: Attestation: I personally reviewed and interpreted this EKG as follows: Interpretation: Non-Specific ST Changes and - (wide-complex tachycardia) Prior EKG tracings: available for review Prior: Changed (12/02/23 NSR narrow QRS) Follow-up EKG: Attestation: I personally reviewed and interpreted this EKG as follows: Interpretation: No Acute Injury Pattern and Atrial Fibrillation (115) after spont cardioversion: Attestation: I personally reviewed and interpreted this EKG as follows: Interpretation: Sinus Rhythm and No Acute Injury Pattern Discharge Plan Triage Chief Complaint: Fall ED Provider: Jori Garcia Dx/Rx/DC Orders Clinical Impression: Paroxysmal atrial fibrillation with RVR, Contusion of buttock, Dysequilibrium, Contusion of neck, Closed head injury without loss of consciousness, Subclavian artery stenosis, left Instructions: AFib Dc, ED Peripheral Artery Disease (PAD) Prescriptions: No Action gabapentin 800 mg tablet 800 mg PO TID baclofen 20 mg tablet 20 mg PO Q8H levothyroxine 50 mcg tablet 50 mcg PO DAILY Patient Comments: take 1 tablet by mouth once daily oxycodone 10 mg tablet 10 mg PO Q6H PRN Patient Comments: take 1 tab q6 PRN for pain famotidine 20 mg tablet 20 mg PO DAILY cholecalciferol (vitamin D3) 5,000 UNIT tablet 5,000 unit PO DAILY Patient Comments: supplement dextromethorphan-guaifenesin [Mucinex DM] 60-1,200 mg tablet extended release 12 hr 1 tab PO Q12H 7 Days Qty: 14 0RF clopidogrel 75 mg tablet 75 mg PO DAILY Qty: 90 3RF metoprolol tartrate 25 mg tablet 12.5 mg PO BID Qty: 30 11RF Primary Care Provider: Daron Benton Referrals: Kam Nava MD [Med Staff - Active Staff] - As soon as possible Daron Benton MD [Primary Care Provider] - Betsey Lindquist PA [Med Staff - Adv Practice Prof] - As soon as possible Activity Restrictions/Additional Instructions: In 2019, Dr. Nava did angioplasty on your left subclavian artery (the artery that goes into your left arm). 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 Make an appointment to see him as soon as possible to have this reevaluated. Disposition Disposition: Home, Self Care
[2024-01-11 02:41] LABS: Absolute Lymphocyte Count 0.76 X10^3/uL (0.83-4.51); Absolute Neutrophil Count 12.4 X10^3/uL (2.0-7.7); Basophil# 0.08 X10^3/uL; Basophil% 0.5 % (0-1); Eosinophil# 0.03 X10^3/uL; Eosinophils% 0.2 % (0-5); Hematocrit 32.4 % (37-47); Hemoglobin 10.2 g/dL (12.0-15.0); Lymphocyte # 0.76 X10^3/ul (0.83-4.51); Lymphocyte % 5.2 % (19-41); Mean Corp Hgb Conc 31.5 g/dL (32-36); Mean Corpuscular Hgb 27.2 pg (27.0-32.0); Mean Corpuscular Volume 86.4 fL (81-99); Mean Platelet Vol. 9.2 fl (6.2-12.0); Monocyte# 1.12 X10^3/uL; Monocyte% 7.7 % (0-10); NRBC Flagged by Analyzer 0 % (0-5); Neutrophil # 12.41 X10^3/uL (2.7-7.7); Neutrophil % 85.1 % (47-70); Platelet Count 308 K/mm3 (150-450); RBC Distribution Width CV 15.2 % (11.6-14.6); RBC Distribution Width SD 48.4 fl (35.1-43.9); Red Blood Count 3.75 M/mm3 (4.2-5.4); White Blood Count 14.6 K/mm3 (4.4-11.0)
--- NOTE | 2024-01-11 02:45 | EKG12_ITS ---
Test Reason : REPEAT Blood Pressure : / mmHG Vent. Rate : 115 BPM Atrial Rate : 249 BPM P-R Int : 000 ms QRS Dur : 080 ms QT Int : 376 ms P-R-T Axes : 000 044 052 degrees QTc Int : 520 ms Atrial fibrillation Prolonged QT Abnormal ECG Confirmed by OTILIA FOX, MAYI ([id number]), sound editor ESLAM BARRETO ([id number]) on 01/11/2024 1:08:50 PM Referred By: Confirmed By:MAYI BINGHAM MD
[2024-01-11] MEDS: Adenosine 6 MG/2 ML Syringe IV (02:48)
[2024-01-11] MEDS: 0.9% Normal Saline (500mL Bag) 500 ML 999 ML IV ×2 (02:50→05:46)
[2024-01-11] MEDS: Metoprolol Tartrate 5 MG/5 ML Vial IV ×2 (02:55→05:20)
[2024-01-11 03:03] LABS: Anion Gap 7 (5-15); BUN 18 mg/dL (7-18); BUN/Creat Ratio 16.8 RATIO (10-20); Calcium,Total 9.1 mg/dL (8.5-10.1); Chloride 104 mmol/L (98-107); Creatinine, Serum 1.07 mg/dL (0.55-1.02); EST Glomerular Filtration Rate 54 mL/min (>60); Est Glom Filt Rate - Afr Amer 65 mL/min (>60); Estimated Creatinine Clearance 43.08 ml/min; Glucose 159 mg/dL (74-106); Potassium 3.9 mmol/L (3.5-5.1); Sodium Level 137 mmol/L (136-145); Troponin-I HS 11 pg/mL (3.0-54.0)
[2024-01-11 03:08] LABS: Magnesium 2.1 mg/dL (1.6-2.6)
[2024-01-11] MEDS: Acetaminophen 500 MG Tablet 1000 MG PO (03:40)
[2024-01-11 03:50] LABS: Bacteria 0 SEEN /hpf (None Seen); Mucous, Urine 0 SEEN /hpf (<or=2+); Red Blood Cells-Urine 0 SEEN /hpf (0-5); Squamous Epithelial Cells - UA 0 SEEN /hpf (5-10); White Blood Cells 0 SEEN /hpf (0-5)
[2024-01-11 03:52] LABS: Color, Urine Yellow (Yellow); Glucose, Dipstick Normal (Normal); Ketone-Dipstick Negative (Negative); Leukocyte Esterase-Dipstick 25 /ul (Negative); Nitrite-Dipstick Negative (Negative); Occult Blood-Urine Negative /ul (Negative); Protein-Dipstick Negative (Negative); Urine Bilirubin Dipstick Negative (Negative); Urine Clarity Clear (Clear); Urine Urobilinogen Normal (Normal)
[2024-01-11 04:15] LABS: Lactic Acid 1.3 mmol/L (0.4-1.9)
[2024-01-11 05:13] LABS: Troponin-I HS 17 pg/mL (3.0-54.0)
--- NOTE | 2024-01-11 06:34 | CT_ITS ---
INDICATION: sob, hypoxic, tachycardic EXAMINATION: CT CHEST WITH CONTRAST - CTA Chest WO/W Contrast Injection TECHNIQUE: Helically acquired images were obtained of the chest following IV contrast timed in the pulmonary arterial phase with sagittal and coronal reconstructed images. Post-processing of the angiographic images was performed with multiplanar reformation and 3D reconstruction. Individualized dose optimization techniques were used for this CT. IV contrast dosage and agent: 75 mL of [id number]-370. COMPARISON: None. FINDINGS: LUNGS, PLEURA AND LARGE AIRWAYS: No consolidation or edema. 3 mm left upper lobe pulmonary nodule image #146 of series #2. No pleural effusion. No pneumothorax. Centrilobular and paraseptal emphysematous changes. Mild bullous emphysematous changes and fibrotic changes in the upper lobes, right greater than left. THYROID: Unremarkable. HEART AND PERICARDIUM: Coronary artery calcifications are present. No pericardial effusion. No evidence of right heart strain. Right ventricle to left ventricle ratio measures less than 1. MEDIASTINUM AND ARGENIS: No mediastinal or hilar adenopathy. Esophagus is unremarkable. No hiatal hernia. VESSELS: No pulmonary embolism. No thoracic aortic aneurysm. Occlusion versus severe stenosis of the innominate artery and severe stenosis of the left subclavian artery. Collateralization of the right common carotid artery with the left common carotid artery. UPPER ABDOMEN: The visualized upper abdomen is unremarkable. BONES: No acute abnormality. CT/CTA Chest W/WO Contrast IMPRESSION: 1. No pulmonary embolism. 2. 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 Collateralization of the right common carotid artery with the left common carotid artery. 3. Severe stenosis of the left subclavian artery. 4. 3 mm left upper lobe pulmonary nodule. Per Fleischner criteria, recommend follow-up CT of the chest in 12 months if the patient has increased risk factors for lung cancer. Otherwise no follow-up is recommended. Electronically Signed: Cecilio Delacruz DO at 7:53 EST ,
--- NOTE | 2024-01-11 07:21 | EKG12_ITS ---
Test Reason : REPEAT Blood Pressure : / mmHG Vent. Rate : 065 BPM Atrial Rate : 065 BPM P-R Int : 156 ms QRS Dur : 082 ms QT Int : 484 ms P-R-T Axes : 071 043 072 degrees QTc Int : 503 ms Normal sinus rhythm Possible Left atrial enlargement Minimal voltage criteria for LVH, may be normal variant ( Sokolow-Pantoja ) Prolonged QT Abnormal ECG Confirmed by OTILIA FOX, MAYI ([id number]), newspaper editor managing SELAM BARRETO ([id number]) on 01/11/2024 1:10:33 PM Referred By: BB Confirmed By:MAYI BINGHAM MD
== END 2024-01-11 09:02 | disposition home or self-care (01) ==
PROVIDERS: Emergency Provider Emergency Medicine; PCP Family Medicine; Visit Provider Emergency Medicine
DX: I48.0 Paroxysmal atrial fibrillation (principal); G35 Multiple sclerosis; I73.9 Peripheral vascular disease, unspecified; S30.0XXA Contusion of lower back and pelvis, initial encounter; I70.8 Atherosclerosis of other arteries; W18.11XA Fall from or off toilet without subsequent striking against object, initial encounter; S00.03XA Contusion of scalp, initial encounter; S10.93XA Contusion of unspecified part of neck, initial encounter; M81.0 Age-related osteoporosis without current pathological fracture; E03.9 Hypothyroidism, unspecified; I10 Essential (primary) hypertension; G89.4 Chronic pain syndrome; F17.210 Nicotine dependence, cigarettes, uncomplicated; Z79.01 Long term (current) use of anticoagulants; Z79.02 Long term (current) use of antithrombotics/antiplatelets; Z79.890 Hormone replacement therapy; Z79.899 Other long term (current) drug therapy; Z86.73 Personal history of transient ischemic attack (TIA), and cerebral infarction without residual deficits
CPT/HCPCS: 70450; 71046; 71275; 72125; 72170; 80048; 81001; 83605; 83735; 84484; 85025; 93005; 96361; 96374; 96375; 96376; 99284; J7030; Q9967; A4216; J0153

== ENCOUNTER 2024-01-18 10:21 | Emergency (ER) | payer MEDICARE, MEDICAID, SELFPAY ==
[2024-01-18 10:23] VITALS: BP 107/43; PULSE 62; RESP 16; TEMP 36.5; O2SAT 96; BMI 20.4
--- NOTE | 2024-01-18 10:41 | CT_ITS ---
STUDY: CT BRAIN WITHOUT CONTRAST REASON FOR EXAM: Female, 68 years old. Head trauma on Eliquis RADIATION DOSAGE (If Supplied By Facility): CTDIvol = ( 44.99 ) mGy, DLP = ( 745.49 ) mGycm TECHNIQUE: Transaxial CT imaging of the brain was performed without administration of intravenous contrast material. Individualized dose optimization techniques were used for this CT. COMPARISON: January 11, 2024 FINDINGS: There is right posterior soft tissue swelling. Normal calvarium. Normal size ventricles and extra-axial spaces for the patient''s age. There are areas of decreased attenuation within the white matter tracts of the supratentorial brain, consistent with microvascular disease changes. There are aneurysm coils in the supraclinoid region. Normal basal ganglia and thalami. Normal brainstem. Normal cerebellum. There is no intracranial hemorrhage. There are no findings of an acute ischemic infarction. Normal visualized paranasal sinuses. CT/Brain/Head without Contrast IMPRESSION: Chronic involutional changes of the brain. Soft tissue swelling. Stable appearance. Electronically Signed: Jori Haynes MD at 11:22 EST ,
--- NOTE | 2024-01-18 10:42 | EDS_ITS ---
HPI HPI - Fall History of Present Illness Chief Complaint: Fall Informant: patient Occured/Mechanism Occurred: Today Mechanism/Context: Yes same level fall Usually ambulates: Walker Pain/Injury Pain Location: head Current Severity: Mild Associated Symptoms Associated Symptoms: Negative for Parasthesias, Weakness, Loss of function, Inability to ambulate, Loss of consciousness or Amnesia Narrative Narrative: 68-year-old female history of hypertension, MS, A-fib on Eliquis. Today was using her walker she went to sit down and fell backwards striking her head on a tile floor. No LOC. No neck pain. Able to ambulate. Denies any pain to her arms, chest, abdomen or hips. Prior history of similar falls. Prior similar symptoms: Yes Recent Illness/Hospitalization: No PFSH PFSH Medical History Angina pectoris Bilateral carotid artery stenosis Chronic pain syndrome Coronary artery disease Essential (primary) hypertension Fatty liver GERD (gastroesophageal reflux disease) Goiter History of transient ischemic attack (TIA) HLD (hyperlipidemia) Hypothyroidism Influenza A Multiple sclerosis Multiple sclerosis Nonobstructive atherosclerosis of coronary artery Nonsustained paroxysmal supraventricular tachycardia Osteoarthritis Osteoporosis Peripheral vascular occlusive disease Psoriasis Psoriatic arthritis Smoker Thrombocytopenia TIA (transient ischemic attack) Home Medications cholecalciferol (vitamin D3) 125 mcg (5,000 unit) tablet 5,000 unit PO DAILY supplement 12/16/13 [History Last Taken 12/01/23] gabapentin 800 mg tablet 800 mg PO TID MS 07/16/18 [History Last Taken 12/01/23] baclofen 20 mg tablet 20 mg PO Q8H MS 08/11/21 [History Last Taken 12/01/23] levothyroxine 50 mcg tablet 50 mcg PO DAILY thyroid 08/11/21 [History Last Taken 12/01/23] oxycodone 10 mg tablet 10 mg PO Q6H PRN pain 05/24/23 [History Last Taken 12/01/23] clopidogrel 75 mg tablet 75 mg PO DAILY dose increased, pt is OUT of med, please fill #90 TABLETS 06/01/23 [Rx Last Taken 11/18/23] dextromethorphan-guaifenesin ER 60 mg-1,200 mg tab,extend release,12hr (Mucinex DM) 1 tab PO Q12H cough/congest 7 days #14 tabs 11/16/23 [Rx Last Taken 12/01/23] metoprolol tartrate 25 mg tablet 12.5 mg (1/2 x 25 mg) PO BID #30 tabs 12/10/23 [Rx Last Taken Unknown] famotidine 20 mg tablet 20 mg PO DAILY 12/21/23 [History Last Taken Unknown] apixaban 5 mg tablet (Eliquis) 5 mg PO BID #60 tabs 01/11/24 [Rx Last Taken Unknown] Allergy/AdvReac Type Severity Reaction Status Date / Time colestipol [From Colestid] Allergy Mild unknown Verified 01/18/24 10:25 pregabalin [From Lyrica] Allergy Mild Hives Verified 01/18/24 10:25 amitriptyline Allergy Rash Verified 01/18/24 10:25 temazepam [From Restoril] AdvReac Mild Nausea/Vom/ Verified 01/18/24 10:25 Diarrhea Antihistamines - Alkylamine AdvReac Nausea/Vom/ Verified 01/18/24 10:25 Diarrhea Antihistamines - Ethanolamine AdvReac Nausea/Vom/ Verified 01/18/24 10:25 Diarrhea Antihistamines - AdvReac Nausea/Vom/ Verified 01/18/24 10:25 Ethylenediamine Diarrhea Antihistamines - Piperazine AdvReac Nausea/Vom/ Verified 01/18/24 10:25 Diarrhea Antihistamines - Piperidine AdvReac Nausea/Vom/ Verified 01/18/24 10:25 Diarrhea aspirin AdvReac I'M ON Verified 01/18/24 10:25 BLOOD THINNERS codeine AdvReac Nausea Verified 01/18/24 10:25 Corticosteroids AdvReac Upset Verified 01/18/24 10:25 (Glucocorticoids) Stomach morphine AdvReac Nausea Verified 01/18/24 10:25 Fsgkvge-HQG-GcC Reductase AdvReac Nausea Verified 01/18/24 10:25 Inhibitor [Pwovzgi-Lib-Wzo Reductase Inhibitor] Family History Mother Cancer CAD (coronary artery disease) Brain tumor Grandfather CVA (cerebral vascular accident) Father CAD (coronary artery disease) Ruptured abdominal aortic aneurysm (AAA) Sister Brain aneurysm Surgical History Brain aneurysm Fracture of right lower leg H/O hemorrhoidectomy H/O: History of angioplasty of peripheral vessel History of angioplasty of peripheral vessel (07/11/19) History of appendectomy History of section History of cholecystectomy History of hemorrhoidectomy History of hysterectomy History of left breast biopsy History of left heart catheterization (01/25/15) History of left-sided carotid endarterectomy History of partial thyroidectomy (11/30/05) History of right-sided carotid endarterectomy S/P coil embolization of cerebral aneurysm S/P hysterectomy S/P insertion of iliac artery stent S/P thyroidectomy Stenosis of left subclavian artery Social History household members: none Smoking Status: Current every day smoker tobacco type: cigarettes alcohol intake: never caffeine: Yes Type: coffee and tea ROS ROS ED ROS Narrative Denies recent illness. Review of Systems ROS Unobtainable: Denies due to encephalopathy Constitutional Constitutional ED: Denies chills or fever(s) ENT ENT ED: Denies ear pain Cardiovascular Cardiovascular: Denies chest pain Respiratory/Chest Respiratory/Chest: Denies cough or dyspnea Gastrointestinal Gastrointestinal: Denies abdominal pain Genitourinary Genitourinary ED: Denies dysuria or hematuria Musculoskeletal Musculoskeletal: Denies arthralgias, back pain, myalgias or neck pain Integumentary Denies abscess or Abrasions Neurologic Neurologic: Reports headache(s); Denies paresthesias or weakness Psychiatric Psychiatric: Denies anxiety or depression Endocrine Endocrinology: Denies polydipsia or polyphagia Hematologic/Lymphatic Hematologic/Lymphatic: Denies lymphadenopathy Allergic/Immunologic Allergic/Immunologic ED: Denies mouth swelling, tongue swelling or urticaria EXAM Physical Exam Narrative Exam Narrative: Well-appearing 68-year-old female. Vital signs are stable afebrile. H EENT exam pupils are reactive light. No facial trauma. She has a old hematoma in the right posterior scalp from a prior fall she has tenderness on the left scalp but no laceration or significant hematoma at this time. No blood. C-spine non tender. Back and spine nontender. Iliac crest nontender. Chest wall and ribs nontender. Lungs clear. Heart regular rate about 60 no murmur. Abdomen soft nontender. Pelvic girdle intact. Moving all 4 extremities. Nontender no deformity. No shortening or rotation. 5 out of 5 adult protective caseworker strength. Dorsi plantarflexion intact. Arms and legs nontender. No deformity. Normal range of motion. Neurologically she is awake and alert with no focal motor deficits. GCS of 15. Const Vital Signs: 01/18/24 10:23 01/18/24 10:26 Temperature 97.7 F L Temperature Source Oral Pulse Rate 62 Respiratory Rate 16 Respiratory Effort Normal Non-Labored Blood Pressure 107/43 L Blood Pressure Mean 64 Pulse Ox 96 Oxygen Delivery Method Room Air Positive well nourished, well developed and unkempt; Negative for obese, cachectic or contractures General Appearance ED: unkempt, well developed and NAD; Negative for cachectic or contractures Nutritional Appearance: Negative for cachectic or obese HEENT Reports normocephalic HEENT Narrative: Posterior scalp tender on the right. Old hematoma on the left. No laceration or blood. trauma, contusion, hematoma and tenderness; Negative for atraumatic Eyes PERRL and EOMs intact bilaterally General Eye ED: Negative for pale conjunctiva, scleral icterus or other Neck full ROM, no lymphadenopathy and supple Chest Wall inspection of chest normal and palpation of chest normal Chest: Negative for other Resp normal respiratory effort, no retractions and clear to auscultation bilaterally Effort and Inspection: Negative for pain with movement Auscultation: Negative for rales, rhonchi or wheezes Cardio regular rate, regular rhythm, S1 normal heart sound, S2 normal heart sound and no murmurs GI non-tender, non-distended and no masses Inspection: Negative for abdominal distention Auscultation: normoactive bowel sounds Palpation: soft; Negative for guarding or rebound tenderness present Back/Spine no CVA tenderness General Back: Negative for CVA tenderness Cervical Spine: Negative for cervical spine tenderness Thoracic Spine / Upper Back: Negative for ROM limited Lumbar Spine / Lower Back: Negative for lumbar spinal tenderness or paraspinal muscle tenderness Neuro oriented x3, CN's II-XII intact bilaterally, moves all extremities and no focal motor deficits Sensorium / Orientation: alert, oriented to person, oriented to place and oriented to time; Negative for orientation impaired, confused, lethargic or st uporous Motor Exam: strength 5/5 throughout Psych mental status grossly normal and thought process normal Appearance: unkempt Attitude: No agitated Mood & Affect: Negative for depressed, anxious or tearful Skin Lesions: no lesions Rashes: no rashes Trauma: Negative for abrasion or laceration MDM MDM MDM Narrative Medical decision making narrative: 68-year-old female fell and struck the back of her head. On Eliquis for A-fib. Obtain a CAT scan of her head. There is no other injuries. She is having no neck pain. I do not think she needs any other imaging or labs. She will be given Tylenol for pain. Repeat exam patient doing well at 11:30 AM patient doing well. We discussed her CAT scan results. She is comfortable being discharged home. She knows to return if she starts having intractable vomiting or severe severe headache. History & Record Review Discussion w/independent historian: Patient Additional record(s) reviewed:: Prior inpatient record, Prior outpatient record, Prior ED visit and Prior labs Radiography Diagnostic Testing: Clinical Impression(s) from Imaging Studies Brain CT 01/18/24 10:41 IMPRESSION: Chronic involutional changes of the brain. Soft tissue swelling. Stable appearance. Electronically Signed: Jori Haynes MD at 11:22 EST , Discharge Plan Triage Chief Complaint: Fall ED Provider: Ramírez Onofre Dx/Rx/DC Orders Clinical Impression: Chronic anticoagulation, Closed head injury, Family history of MS (multiple sclerosis), History of atrial fibrillation, Fall Instructions: ED Head Injury (Adult) Prescriptions: No Action gabapentin 800 mg tablet 800 mg PO TID baclofen 20 mg tablet 20 mg PO Q8H levothyroxine 50 mcg tablet 50 mcg PO DAILY Patient Comments: take 1 tablet by mouth once daily oxycodone 10 mg tablet 10 mg PO Q6H PRN Patient Comments: take 1 tab q6 PRN for pain famotidine 20 mg tablet 20 mg PO DAILY cholecalciferol (vitamin D3) 5,000 UNIT tablet 5,000 unit PO DAILY Patient Comments: supplement dextromethorphan-guaifenesin [Mucinex DM] 60-1,200 mg tablet extended release 12 hr 1 tab PO Q12H 7 Days Qty: 14 0RF clopidogrel 75 mg tablet 75 mg PO DAILY Qty: 90 3RF metoprolol tartrate 25 mg tablet 12.5 mg PO BID Qty: 30 11RF Eliquis 5 mg tablet 5 mg PO BID Qty: 60 11RF Primary Care Provider: Daron Benton Referrals: Daron Benton MD [Primary Care Provider] - As Needed Activity Restrictions/Additional Instructions: Ice to your scalp. Tylenol for pain. If you are having a severe severe headache or intractable vomiting you need to return. Currently there is no signs of any bleeding in your brain your CAT scan was okay. You may want to discuss with your primary care physician if you absolutely need to be on the blood thinner Eliquis. Anytime you hit your head you are at risk of getting internal bleeding. Disposition Disposition: Home, Self Care
[2024-01-18] MEDS: Acetaminophen 500 MG Tablet 1000 MG PO (10:56)
[2024-01-18 11:47] VITALS: BP 121/70; PULSE 62; RESP 18; TEMP 36.5; O2SAT 95
== END 2024-01-18 11:47 | disposition home or self-care (01) ==
PROVIDERS: Emergency Provider Emergency Medicine; PCP Family Medicine; Visit Provider Emergency Medicine
DX: S09.90XA Unspecified injury of head, initial encounter (principal); G35 Multiple sclerosis; I48.91 Unspecified atrial fibrillation; W01.10XA Fall on same level from slipping, tripping and stumbling with subsequent striking against unspecified object, initial encounter; I10 Essential (primary) hypertension; F17.210 Nicotine dependence, cigarettes, uncomplicated; Z79.01 Long term (current) use of anticoagulants; Z79.02 Long term (current) use of antithrombotics/antiplatelets; Z79.899 Other long term (current) drug therapy
CPT/HCPCS: 70450; 99282

== ENCOUNTER → 2024-01-18 | Outpatient (CLI) | payer MEDICARE, MEDICAID, SELFPAY ==
[2024-01-18 10:02] LABS: Absolute Lymphocyte Count 1.27 X10^3/uL (0.83-4.51); Absolute Neutrophil Count 8.1 X10^3/uL (2.0-7.7); Basophil# 0.09 X10^3/uL; Basophil% 0.8 % (0-1); Eosinophil# 0.22 X10^3/uL; Hematocrit 30.4 % (37-47); Hemoglobin 8.9 g/dL (12.0-15.0); Lymphocyte # 1.27 X10^3/ul (0.83-4.51); Lymphocyte % 11.7 % (19-41); Mean Corp Hgb Conc 29.3 g/dL (32-36); Mean Corpuscular Hgb 25.8 pg (27.0-32.0); Mean Corpuscular Volume 88.1 fL (81-99); Monocyte# 0.93 X10^3/uL; Monocyte% 8.6 % (0-10); NRBC Flagged by Analyzer 0 % (0-5); Neutrophil # 8.12 X10^3/uL (2.7-7.7); Neutrophil % 74.9 % (47-70); Platelet Count 449 K/mm3 (150-450); RBC Distribution Width SD 51.1 fl (35.1-43.9); RET-HE 25.6 pg (30-35); Red Blood Count 3.45 M/mm3 (4.2-5.4); White Blood Count 10.9 K/mm3 (4.4-11.0)
[2024-01-18 10:37] LABS: ALB/GLOB Ratio 0.7 RATIO (0.9-2.4); AST(SGOT) 12 U/L (15-37); Alanine Aminotransfer ALT/SGPT 13 U/L (13-56); Albumin, Serum 2.8 g/dL (3.2-5.0); Alkaline Phosphatase 161 U/L (45-117); Anion Gap 5 (5-15); BUN 20 mg/dL (7-18); BUN/Creat Ratio 18.9 RATIO (10-20); Calcium,Total 8.7 mg/dL (8.5-10.1); Chloride 106 mmol/L (98-107); Creatinine, Serum 1.06 mg/dL (0.55-1.02); EST Glomerular Filtration Rate 55 mL/min (>60); Est Glom Filt Rate - Afr Amer 66 mL/min (>60); Ferritin 82 ng/mL (8-252); Free T3 2.2 pg/mL (2.18-3.98); Glucose 96 mg/dL (74-106); Potassium 4.1 mmol/L (3.5-5.1); Protein, Total 6.8 g/dL (6.4-8.2); Sodium Level 139 mmol/L (136-145); T4 Free Direct 1.39 ng/dL (0.76-1.46); Thyroid Stim Hormone (TSH) 3.92 uIU/mL (0.358-3.74)
[2024-01-18 10:47] LABS: Vitamin B12 808 pg/mL (211-911)
== END | disposition home or self-care (01) ==
LOC: MFPLAB 08:56
PROVIDERS: PCP Family Medicine; Visit Provider Family Medicine
DX: D64.9 Anemia, unspecified (principal); E03.9 Hypothyroidism, unspecified; K75.81 Nonalcoholic steatohepatitis (NASH)
CPT/HCPCS: 36415; 80053; 82607; 82728; 82746; 84439; 84443; 84481; 85025; 85045

== ENCOUNTER 2024-02-19 10:51 | Inpatient (IN) | payer MEDICARE, MEDICAID, SELFPAY ==
[2024-02-19] VITALS (16 sets, daily range): BP systolic 80–168; BP diastolic 51–93; PULSE 55–99; RESP 12–22; TEMP 36.4–37.4; O2SAT 91–98; BMI 21.8; BMI 19.8
--- NOTE | 2024-02-19 11:12 | ED.RN ---
Pt states BP was over 200 this am. took her prescribed lisinopril this am and her oxycodone. also took 12.5 mg of metoprolol from an old prescription. see BP trends. pt states she feels like she is going to pass out. pt is pale and fatigued. placed #18 in RAC with IV fluids infusing wide open. placed in trendelenburg position in bed, warm blanket provided. labs obtained.
--- NOTE | 2024-02-19 11:15 | ED.RN ---
had left arm pain and back pain at home. denies pain now.
--- NOTE | 2024-02-19 11:26 | EKG12_ITS ---
Test Reason : Blood Pressure : / mmHG Vent. Rate : 087 BPM Atrial Rate : 000 BPM P-R Int : 000 ms QRS Dur : 084 ms QT Int : 414 ms P-R-T Axes : 000 029 063 degrees QTc Int : 498 ms Atrial fibrillation Prolonged QT Abnormal ECG Confirmed by OTILIA FOX, MAYI ([id number]), editor in chief SELAM BARRETO ([id number]) on 02/20/2024 9:34:58 AM Referred By: Confirmed By:MAYI BINGHAM MD
[2024-02-19] MEDS: 0.9% Normal Saline (1000mL) 1,000 ML 999 ML IV (11:30)
[2024-02-19 11:36] LABS: Bedside Glucose 128 mg/dL (74-106)
--- NOTE | 2024-02-19 11:47 | ED.RN ---
pt reports fall on Easter but did not hit head.
[2024-02-19 11:54] LABS: Absolute Lymphocyte Count 1.17 X10^3/uL (0.83-4.51); Absolute Neutrophil Count 5.9 X10^3/uL (2.0-7.7); Basophil# 0.03 X10^3/uL; Basophil% 0.4 % (0-1); Eosinophil# 0.21 X10^3/uL; Eosinophils% 2.6 % (0-5); Hematocrit 22.4 % (37-47); Hemoglobin 6.6 g/dL (12.0-15.0); Lymphocyte # 1.17 X10^3/ul (0.83-4.51); Lymphocyte % 14.5 % (19-41); Mean Corp Hgb Conc 29.5 g/dL (32-36); Mean Corpuscular Hgb 22.8 pg (27.0-32.0); Mean Corpuscular Volume 77.2 fL (81-99); Monocyte# 0.69 X10^3/uL; Monocyte% 8.5 % (0-10); NRBC Flagged by Analyzer 0 % (0-5); Neutrophil # 5.94 X10^3/uL (2.7-7.7); Neutrophil % 73.5 % (47-70); Platelet Count 193 K/mm3 (150-450); RBC Distribution Width CV 17.1 % (11.6-14.6); White Blood Count 8.1 K/mm3 (4.4-11.0)
--- NOTE | 2024-02-19 11:55 | RAD_ITS ---
STUDY: X-RAY CHEST REASON FOR EXAM: Female, 68 years old. Chest pain TECHNIQUE: Single AP portable view of the chest. COMPARISON: Comparison is made with prior study dated January 11, 2024. FINDINGS: EKG electrodes are seen. Right lower lobe infiltrate with small right pleural effusion. Mild degree of interstitial markings and vascular congestion on the right side. Normal size heart. Normal mediastinum and david. Normal visualized pulmonary arteries. There is atherosclerotic tortuosity of the aortic arch and descending thoracic aorta. There is a mild dextroscoliosis of the thoracic spine. Normal visualized ribs, clavicles, and shoulders. There is no demonstrated abnormality of the visualized soft tissue structures of the upper abdomen. RAD/Chest 1 View (Portable) IMPRESSION: Right lower lobe infiltrate with small right pleural effusion with mild degree of vascular congestion in the right hemithorax. Electronically Signed: Jovon Freitas MD at 12:50 EDT ,
[2024-02-19 12:04] LABS: Anion Gap 6 (5-15); BUN 21 mg/dL (7-18); Calcium,Total 8.3 mg/dL (8.5-10.1); Chloride 106 mmol/L (98-107); EST Glomerular Filtration Rate 58 mL/min (>60); Est Glom Filt Rate - Afr Amer 71 mL/min (>60); Glucose 128 mg/dL (74-106); Potassium 3.8 mmol/L (3.5-5.1); Sodium Level 137 mmol/L (136-145); Troponin-I HS (w/2H Reflex) 6 pg/mL (3.0-54.0)
--- NOTE | 2024-02-19 12:13 | EX.ED.DYSGE1 ---
HPI <Bernice Warren RN - Last Filed: 02/19/24 13:46> History of Present Illness Chief Complaint: Hypertension Informant: patient Onset/Context/Timing Onset: Today Context: Sudden Onset Timing: Continuous Current Severity: Moderate Maximum Severity: Moderate Worsened by: Nothing Relieved by: Nothing Associated Symptoms Associated Symptoms: Left arm pain and pain between scapula Narrative Narrative: Patient is a 68-year-old female with past medical history significant significant for atrial fibrillation on Eliquis, psoriatic arthritis, hyperlipidemia, bilateral carotid artery stenosis, and peripheral vascular occlusive disease who presented via EMS for dizziness and hypertension at home. Patient reports this morning dizzy, as if she needed to eat something. She ate some pizza and took her blood pressure which she reported was over 200. She took her lisinopril and then found a bottle of metoprolol in which she took 12-1/2 mg. She reports her normal blood pressure is around 90/60 and her normal heart rate is 60 to 90s. She reports when her blood pressure was elevated she did have left arm pain. She does have pain between her scapula. Describes it as sharp and constant. No exacerbating or alleviating factors. She says she has had similar pain and is unable to recall the diagnosis. She reports hemoptysis x 1 month. She denies any recent illness. She does report she fell on Easter in the driveway onto her buttocks. She did not hit her head. She denies any recent hospitalization or travel. Prior similar symptoms: Yes Recent Illness/Hospitalization: No PFSH <Bernice Warren RN - Last Filed: 02/19/24 13:46> PFSH Medical History Angina pectoris Bilateral carotid artery stenosis Chronic pain syndrome Coronary artery disease Essential (primary) hypertension Fatty liver GERD (gastroesophageal reflux disease) Goiter History of transient ischemic attack (TIA) HLD (hyperlipidemia) Hypothyroidism Influenza A Multiple sclerosis Multiple sclerosis Nonobstructive atherosclerosis of coronary artery Nonsustained paroxysmal supraventricular tachycardia Osteoarthritis Osteoporosis Peripheral vascular occlusive disease Psoriasis Psoriatic arthritis Smoker Thrombocytopenia TIA (transient ischemic attack) Home Medications cholecalciferol (vitamin D3) 125 mcg (5,000 unit) tablet 5,000 unit PO DAILY supplement 12/16/13 [History Last Taken 12/01/23] gabapentin 800 mg tablet 800 mg PO TID MS 07/16/18 [History Last Taken 12/01/23] baclofen 20 mg tablet 20 mg PO Q6H MS 08/11/21 [History Last Taken 12/01/23] levothyroxine 50 mcg tablet 50 mcg PO DAILY thyroid 08/11/21 [History Last Taken 12/01/23] oxycodone 10 mg tablet 10 mg PO Q6H PRN pain 05/24/23 [History Last Taken 12/01/23] famotidine 20 mg tablet 20 mg PO DAILY 12/21/23 [History Last Taken Unknown] apixaban 5 mg tablet (Eliquis) 5 mg PO BID #60 tabs 01/11/24 [Rx Last Taken Unknown] dextromethorphan-guaifenesin ER 60 mg-1,200 mg tab,extend release,12hr (Mucinex DM) 1 tab PO Q12H PRN cough/congest 02/19/24 [History Last Taken Unknown] lisinopril 10 mg tablet 10 mg PO DAILY 02/19/24 [History Last Taken Unknown] Allergy/AdvReac Type Severity Reaction Status Date / Time colestipol [From Colestid] Allergy Mild unknown Verified 02/19/24 10:57 pregabalin [From Lyrica] Allergy Mild Hives Verified 02/19/24 10:57 amitriptyline Allergy Rash Verified 02/19/24 10:57 temazepam [From Restoril] AdvReac Mild Nausea/Vom/ Verified 02/19/24 10:57 Diarrhea Antihistamines - Alkylamine AdvReac Nausea/Vom/ Verified 02/19/24 10:57 Diarrhea Antihistamines - Ethanolamine AdvReac Nausea/Vom/ Verified 02/19/24 10:57 Diarrhea Antihistamines - AdvReac Nausea/Vom/ Verified 02/19/24 10:57 Ethylenediamine Diarrhea Antihistamines - Piperazine AdvReac Nausea/Vom/ Verified 02/19/24 10:57 Diarrhea Antihistamines - Piperidine AdvReac Nausea/Vom/ Verified 02/19/24 10:57 Diarrhea aspirin AdvReac I'M ON Verified 02/19/24 10:57 BLOOD THINNERS codeine AdvReac Nausea Verified 02/19/24 10:57 Corticosteroids AdvReac Upset Verified 02/19/24 10:57 (Glucocorticoids) Stomach morphine AdvReac Nausea Verified 02/19/24 10:57 Hkrmkha-EYL-YdA Reductase AdvReac Nausea Verified 02/19/24 10:57 Inhibitor [Kahwqff-Ysm-Wen Reductase Inhibitor] Family History Mother Cancer CAD (coronary artery disease) Brain tumor Grandfather CVA (cerebral vascular accident) Father CAD (coronary artery disease) Ruptured abdominal aortic aneurysm (AAA) Sister Brain aneurysm Surgical History Brain aneurysm Fracture of right lower leg H/O hemorrhoidectomy H/O: History of angioplasty of peripheral vessel History of angioplasty of peripheral vessel (07/11/19) History of appendectomy History of section History of cholecystectomy History of hemorrhoidectomy History of hysterectomy History of left breast biopsy History of left heart catheterization (01/25/15) History of left-sided carotid endarterectomy History of partial thyroidectomy (11/30/05) History of right-sided carotid endarterectomy S/P coil embolization of cerebral aneurysm S/P hysterectomy S/P insertion of iliac artery stent S/P thyroidectomy Stenosis of left subclavian artery Social History household members: none Smoking Status: Current every day smoker tobacco type: cigarettes alcohol intake: never caffeine: Yes Type: coffee and tea ROS <Bernice Warren RN - Last Filed: 02/19/24 13:46> ROS ED Constitutional Constitutional ED: Denies chills, fever(s) or sweats Eyes Eyes: Denies change in vision ENT ENT ED: Denies rhinorrhea or sore throat Cardiovascular Cardiovascular: Denies chest pain, orthopnea, palpitations or racing heartbeat Respiratory/Chest Respiratory/Chest: Reports cough, sputum and other Details: Hemoptysis x 1 month ; Denies dyspnea or orthopnea Gastrointestinal Gastrointestinal: Denies abdominal pain, constipation, diarrhea, melena, nausea or vomiting Genitourinary Genitourinary ED: Denies dysuria, hematuria or urinary frequency Musculoskeletal Musculoskeletal: Reports other Details: Pain between scapula ; Denies arthralgias, myalgias or neck pain Integumentary Denies abscess, Abrasions or rash Neurologic Neurologic: Denies headache(s), paresthesias or weakness Psychiatric Psychiatric: Denies anxiety or depression Hematologic/Lymphatic Hematologic/Lymphatic: Reports systems reviewed and no addt'l complaints, except as documented and easy bruising EXAM <Bernice Warren RN - Last Filed: 02/19/24 13:46> Physical Exam Narrative Exam Narrative: Patient is pale, awake and alert. Cooperative. Good historian. Const Vital Signs: 02/19/24 10:52 02/19/24 10:52 02/19/24 10:58 Temperature 98.1 F 98.1 F Temperature Source Oral Oral Pulse Rate 95 96 Respiratory Rate 18 13 Respiratory Effort Normal Non-Labored Respiratory Pattern Normal Blood Pressure 80/51 L 95/52 L Blood Pressure Mean 60 66 Blood Pressure Source Blood Pressure Position Blood Pressure Location Pulse Ox 94 94 Oxygen Delivery Method Room Air Room Air 02/19/24 11:10 02/19/24 11:30 02/19/24 11:42 Temperature Temperature Source Pulse Rate 99 92 87 Respiratory Rate 14 12 14 Respiratory Effort Respiratory Pattern Blood Pressure 80/51 L 99/55 L 90/70 Blood Pressure Mean 60 69 76 Blood Pressure Source Blood Pressure Position Blood Pressure Location Pulse Ox 92 94 91 Oxygen Delivery Method Room Air Room Air Room Air 02/19/24 11:43 02/19/24 11:45 02/19/24 12:54 Temperature Temperature Source Pulse Rate 81 97 Respiratory Rate 12 Respiratory Effort Respiratory Pattern Blood Pressure 97/62 90/60 113/68 Blood Pressure Mean 73 70 83 Blood Pressure Source Blood Pressure Position Blood Pressure Location Pulse Ox 96 Oxygen Delivery Method Room Air 02/19/24 13:45 02/19/24 14:00 02/19/24 14:31 Temperature 98.2 F 98.2 F 98.1 F Temperature Source Oral Oral Pulse Rate 98 93 84 Respiratory Rate 20 H 18 22 H Respiratory Effort Respiratory Pattern Blood Pressure 113/93 H 116/80 119/65 Blood Pressure Mean 99 92 83 Blood Pressure Source Monitor Monitor Blood Pressure Position Semi-Fowlers Semi-Fowlers Blood Pressure Location Right Arm Right Arm Pulse Ox 93 93 94 Oxygen Delivery Method Room Air Room Air Positive well nourished and well developed General Appearance ED: well developed and NAD HEENT Reports moist mucous membranes HEENT Narrative: Patient with fall in October in which she still has a tender area on the right occiput with 0.5 cm round dark area. No abrasion, drainage, or bleeding noted. trauma and tenderness Eyes PERRL and EOMs intact bilaterally Neck no lymphadenopathy, supple and no JVD Chest Wall inspection of chest normal and palpation of chest normal Resp normal respiratory effort and clear to auscultation bilaterally Auscultation: Negative for rales, rhonchi or wheezes Cardio S1 normal heart sound, S2 normal heart sound and no murmurs Rhythm: abnormal rhythm irregularly irregular GI normal to inspection, nondistended, normoactive bowel sounds and non-tender Palpation: soft Narrative: Denies dysuria, hematuria, and urinary frequency Back/Spine no CVA tenderness Cervical Spine: Negative for cervical spine tenderness Thoracic Spine / Upper Back: Negative for thoracic spinal tenderness Lumbar Spine / Lower Back: Negative for lumbar spinal tenderness Extremity normal to inspection General Extremety ED: Negative for edema or tenderness General Extremity: Negative for edema Neuro oriented x3 Sensorium / Orientation: alert Motor Exam: general weakness Psych mental status grossly normal Skin no rashes or lesions noted, no wounds and skin turgor normal <Dr. Jeffy Willoughby MD - Last Filed: 02/19/24 14:39> Physical Exam Const Vital Signs: 02/19/24 10:52 02/19/24 10:52 02/19/24 10:58 Temperature 98.1 F 98.1 F Temperature Source Oral Oral Pulse Rate 95 96 Respiratory Rate 18 13 Respiratory Effort Normal Non-Labored Respiratory Pattern Normal Blood Pressure 80/51 L 95/52 L Blood Pressure Mean 60 66 Blood Pressure Source Blood Pressure Position Blood Pressure Location Pulse Ox 94 94 Oxygen Delivery Method Room Air Room Air 02/19/24 11:10 02/19/24 11:30 02/19/24 11:42 Temperature Temperature Source Pulse Rate 99 92 87 Respiratory Rate 14 12 14 Respiratory Effort Respiratory Pattern Blood Pressure 80/51 L 99/55 L 90/70 Blood Pressure Mean 60 69 76 Blood Pressure Source Blood Pressure Position Blood Pressure Location Pulse Ox 92 94 91 Oxygen Delivery Method Room Air Room Air Room Air 02/19/24 11:43 02/19/24 11:45 02/19/24 12:54 Temperature Temperature Source Pulse Rate 81 97 Respiratory Rate 12 Respiratory Effort Respiratory Pattern Blood Pressure 97/62 90/60 113/68 Blood Pressure Mean 73 70 83 Blood Pressure Source Blood Pressure Position Blood Pressure Location Pulse Ox 96 Oxygen Delivery Method Room Air 02/19/24 13:45 02/19/24 14:00 02/19/24 14:31 Temperature 98.2 F 98.2 F 98.1 F Temperature Source Oral Oral Pulse Rate 98 93 84 Respiratory Rate 20 H 18 22 H Respiratory Effort Respiratory Pattern Blood Pressure 113/93 H 116/80 119/65 Blood Pressure Mean 99 92 83 Blood Pressure Source Monitor Monitor Blood Pressure Position Semi-Fowlers Semi-Fowlers Blood Pressure Location Right Arm Right Arm Pulse Ox 93 93 94 Oxygen Delivery Method Room Air Room Air MDM <Bernice Warren RN - Last Filed: 02/19/24 13:46> [facility] Narrative Medical decision making narrative: Patient placed on gi physician. IV line initiated. Labwork obtained to evaluate for leukocytosis, anemia, and electrolyte derangement. Chest x-ray obtained to evaluate for acute lung pathology, cardiac size, or mediastinal abnormality. EKG obtained to evaluate for cardiac arrhythmia/ischemia. History & Record Review Discussion w/independent historian: Patient Lab Data Labs: Laboratory Results - last 24 hr 02/19/24 02/19/24 02/19/24 11:15 11:18 12:20 WBC 8.1 RBC 2.90 L Hgb 6.6 L Hct 22.4 L MCV 77.2 L MCH 22.8 L MCHC 29.5 L RDW Std Deviation 48.0 H RDW Coeff of David 17.1 H Plt Count 193 MPV 10.0 Immature Gran % (Auto) 0.500 Neut % (Auto) 73.5 H Lymph % (Auto) 14.5 L [place] % (Auto) 8.5 Eos % (Auto) 2.6 Baso % (Auto) 0.4 Absolute Neuts (auto) 5.9 Absolute Lymphs (auto) 1.17 Nucleated RBC % 0 Sodium 137 Potassium 3.8 Chloride 106 Carbon Dioxide 25.0 Anion Gap 6 BUN 21 H Creatinine 1.00 Estim Creat Clear Calc 49.70 Est GFR (MDRD) Af Amer 71 Est GFR (MDRD) Non-Af 58 L BUN/Creatinine Ratio 21.0 H Glucose 128 H Calcium 8.3 L Troponin I High Sens 6 POC Glucose 128 H Blood Type O POSITIVE Antibody Screen NEGATIVE Crossmatch See Detail Radiography Chest X-Ray - ED: 1 View Diagnostic Testing: Clinical Impression(s) from Imaging Studies Chest X-Ray 02/19/24 11:55 IMPRESSION: Right lower lobe infiltrate with small right pleural effusion with mild degree of vascular congestion in the right hemithorax. Electronically Signed: Jovon Freitas MD at 12:50 EDT , EKG Initial EKG: Attestation: I personally reviewed and interpreted this EKG as follows: Interpretation: Atrial Fibrillation Comments: A-fib with heart rate 87. No ischemia noted. Prior EKG tracings: not available for review Differential Diagnosis Chest pain/SOB: ACS and pneumonia Management Discussion w/another healthcare provider: Other (Dr. Onofre, ED provider.) Treatment and Re-Evaluation :: Blood pressure was obtained in both arms to rule out dissection. Zwmsd-je-ruva glucose was obtained to rule out hypoglycemia. It was 128. Lab work and imaging reviewed. CBC shows normal white blood cell count of 8.1 with neutrophils 73.5%. Hemoglobin was 6.6. This is decreased from 8.9 on 01/18/2024. Hematocrit is 22.4. Platelets are 193. Chemistry shows normal sodium 137, potassium 3.8, BUN slightly elevated at 21, creatinine is 1.0, glucose is 128, and calcium is 8.3. High-sensitivity troponin is negative at 6. Stool was sent for occult blood. Patient does admit to hemoptysis x 1 month. Type and screen and type and cross ordered. Patient to be transfused 1 unit PRBCs. Chest x-ray shows a right lower lobe infiltrate with small right pleural effusion and mild vascular congestion. Patient ordered azithromycin and ceftriaxone. Case discussed with hospitalist by Dr. Willoughby for admission. Upon reevaluation, patient resting in bed awake and alert, receiving PRBCs. Patient aware of her decreased hemoglobin, stool positive for occult blood, and right lower lobe pneumonia. She is agreeable to admission. <Dr. Jeffy Willoughby MD - Last Filed: 02/19/24 14:39> [facility] Narrative Medical decision making narrative: Patient placed on gi physician. IV line initiated. Labwork obtained to evaluate for leukocytosis, anemia, and electrolyte derangement. Chest x-ray obtained to evaluate for acute lung pathology, cardiac size, or mediastinal abnormality. EKG obtained to evaluate for cardiac arrhythmia/ischemia. I have personally performed a face to face assessment of the patient and have reviewed the ANTHONY Note. I performed a substantive portion of the visit including all aspects of the following. My white findings include: History is remarkable for dyspnea, fatigue, lack of energy. She denies black or maroon-colored stool. She denies hematuria. She has vague chest discomfort as well. She denies orthopnea or PND. Exam is remarkable for pallor. Conjunctive is pale. There is erythema increasing the plan. Lungs reveal no wheeze rales rhonchi. Heart is regular. Rate is normal. There is no murmur, gallop or rub. Abdomen soft nontender. Patient has evidence of prior hemorrhoids. There is no active bleeding noted. On rectal exam there is no masses appreciated. Stool was brown. Stool sent for occult blood. Medical Decision Making since clinically patient appears anemic obtain CBC to assess H&H and BMP to assess BUN to creatinine ratio is also electrolyte functions. Since patient has symptoms of anemia and is anemic she was typed and screened and typed and crossed for 1 unit of blood. She received that 1 unit of blood. Stool was positive for occult blood. Other additions or changes: Transfuse unit of blood. Contact hospitalist for admission Lab Data Attestation: I reviewed the patient's lab results. Lab results narrative: CBC is marked for an H&H 6.6 and 2.4 which is approximately 2 g drop from prior. Basic metabolic panel is remarked for noted BUN to creatinine ratio 21:1. Labs: Laboratory Results - last 24 hr 02/19/24 02/19/24 02/19/24 11:15 11:18 12:20 WBC 8.1 RBC 2.90 L Hgb 6.6 L Hct 22.4 L MCV 77.2 L MCH 22.8 L MCHC 29.5 L RDW Std Deviation 48.0 H RDW Coeff of David 17.1 H Plt Count 193 MPV 10.0 Immature Gran % (Auto) 0.500 Neut % (Auto) 73.5 H Lymph % (Auto) 14.5 L [place] % (Auto) 8.5 Eos % (Auto) 2.6 Baso % (Auto) 0.4 Absolute Neuts (auto) 5.9 Absolute Lymphs (auto) 1.17 Nucleated RBC % 0 Sodium 137 Potassium 3.8 Chloride 106 Carbon Dioxide 25.0 Anion Gap 6 BUN 21 H Creatinine 1.00 Estim Creat Clear Calc 49.70 Est GFR (MDRD) Af Amer 71 Est GFR (MDRD) Non-Af 58 L BUN/Creatinine Ratio 21.0 H Glucose 128 H Calcium 8.3 L Troponin I High Sens 6 POC Glucose 128 H Blood Type O POSITIVE Antibody Screen NEGATIVE Crossmatch See Detail Radiography Chest X-Ray - ED: Read by ED Physician (Reviewed interpreted by me. Patient has a right lower lobe infiltrate which is new from prior image obtained September of last year. Cardiac silhouette and size normal. Hilar region normal. Osseous trucks unremarkable) Diagnostic Testing: Clinical Impression(s) from Imaging Studies Chest X-Ray 02/19/24 11:55 IMPRESSION: Right lower lobe infiltrate with small right pleural effusion with mild degree of vascular congestion in the right hemithorax. Electronically Signed: Jovon Freitas MD at 12:50 EDT , Management Discussion w/another healthcare provider: Hospitalist <Dr. Jeffy Willoughby MD - Last Filed: 02/19/24 14:39> Critical Care Time Critical Care Time: Yes Critical care time (excluding procedures): 30-74 minutes (31), Including time spent: (History, physical, documentation, review of prior records, independent interpretation laboratory results and imaging. Treatment for hypertension and pneumonia), Discussing w/Patient &/or Family/Lock Tender, Discussing w/Consultants (Spoke with Dr. Chamorro who referred patient to Dr. Roman Mckeon. Patient was accepted.) and Arranging Admission or Transfer Discharge Plan Dx/Rx/DC Orders Clinical Impression: Acute hypotension, Essential (primary) hypertension, Atrial fibrillation, Community acquired pneumonia, Atypical chest pain, Signs and symptoms of anemia, Symptomatic anemia, Peripheral vascular occlusive disease Disposition Disposition: Acute Care [facility]
[2024-02-19 13:41] LABS: Reflex Troponin-HS? (from REC) Y
--- NOTE | 2024-02-19 14:26 | HP.PCM.HOS_ITS ---
[facility] - General General Date of Admission: 02/19/24 Date of Service: 02/19/24 Chief Complaint: Lightheadedness HPI Narrative ADY WALLER, is a 68 F with multiple comorbidities including paroxysmal A-fib on systemic anticoagulation with apixaban who presented to the emergency department with lightheadedness. Per patient she has not been feeling well for the past couple of days. On the day of her admission she did experience lightheadedness. She apparently also broke out into a cold sweat and felt her blood pressure was elevated presented to the emergency department as a result. Patient was found to have a hemoglobin of 6.6. Chest x-ray obtained as part of her evaluation demonstrated right lower lobe infiltrate. Patient was also found to have mild degree of vascular congestion. Admitted to monitored bed for further management [facility] Medical History Angina pectoris Bilateral carotid artery stenosis Chronic pain syndrome Coronary artery disease Essential (primary) hypertension Fatty liver GERD (gastroesophageal reflux disease) Goiter History of transient ischemic attack (TIA) HLD (hyperlipidemia) Hypothyroidism Influenza A Multiple sclerosis Multiple sclerosis Nonobstructive atherosclerosis of coronary artery Nonsustained paroxysmal supraventricular tachycardia Osteoarthritis Osteoporosis Peripheral vascular occlusive disease Psoriasis Psoriatic arthritis Smoker Thrombocytopenia TIA (transient ischemic attack) Home Medications cholecalciferol (vitamin D3) 125 mcg (5,000 unit) tablet 5,000 unit PO DAILY supplement 12/16/13 [History Last Taken 12/01/23] gabapentin 800 mg tablet 800 mg PO TID MS 07/16/18 [History Last Taken 12/01/23] baclofen 20 mg tablet 20 mg PO Q6H MS 08/11/21 [History Last Taken 12/01/23] levothyroxine 50 mcg tablet 50 mcg PO DAILY thyroid 08/11/21 [History Last Taken 12/01/23] oxycodone 10 mg tablet 10 mg PO Q6H PRN pain 05/24/23 [History Last Taken 12/01/23] famotidine 20 mg tablet 20 mg PO DAILY 12/21/23 [History Last Taken Unknown] apixaban 5 mg tablet (Eliquis) 5 mg PO BID #60 tabs 01/11/24 [Rx Last Taken Unknown] dextromethorphan-guaifenesin ER 60 mg-1,200 mg tab,extend release,12hr (Mucinex DM) 1 tab PO Q12H PRN cough/congest 02/19/24 [History Last Taken Unknown] lisinopril 10 mg tablet 10 mg PO DAILY 02/19/24 [History Last Taken Unknown] Allergy/AdvReac Type Severity Reaction Status Date / Time colestipol [From Colestid] Allergy Mild unknown Verified 02/19/24 10:57 pregabalin [From Lyrica] Allergy Mild Hives Verified 02/19/24 10:57 amitriptyline Allergy Rash Verified 02/19/24 10:57 temazepam [From Restoril] AdvReac Mild Nausea/Vom/ Verified 02/19/24 10:57 Diarrhea Antihistamines - Alkylamine AdvReac Nausea/Vom/ Verified 02/19/24 10:57 Diarrhea Antihistamines - Ethanolamine AdvReac Nausea/Vom/ Verified 02/19/24 10:57 Diarrhea Antihistamines - AdvReac Nausea/Vom/ Verified 02/19/24 10:57 Ethylenediamine Diarrhea Antihistamines - Piperazine AdvReac Nausea/Vom/ Verified 02/19/24 10:57 Diarrhea Antihistamines - Piperidine AdvReac Nausea/Vom/ Verified 02/19/24 10:57 Diarrhea aspirin AdvReac I'M ON Verified 02/19/24 10:57 BLOOD THINNERS codeine AdvReac Nausea Verified 02/19/24 10:57 Corticosteroids AdvReac Upset Verified 02/19/24 10:57 (Glucocorticoids) Stomach morphine AdvReac Nausea Verified 02/19/24 10:57 [id number]-FHR-ZfA Reductase AdvReac Nausea Verified 02/19/24 10:57 Inhibitor [Wnmnvna-Nxk-Utt Reductase Inhibitor] Family History Mother Cancer CAD (coronary artery disease) Brain tumor Grandfather CVA (cerebral vascular accident) Father CAD (coronary artery disease) Ruptured abdominal aortic aneurysm (AAA) Sister Brain aneurysm Surgical History Brain aneurysm Fracture of right lower leg H/O hemorrhoidectomy H/O: History of angioplasty of peripheral vessel History of angioplasty of peripheral vessel (07/11/19) History of appendectomy History of section History of cholecystectomy History of hemorrhoidectomy History of hysterectomy History of left breast biopsy History of left heart catheterization (01/25/15) History of left-sided carotid endarterectomy History of partial thyroidectomy (11/30/05) History of right-sided carotid endarterectomy S/P coil embolization of cerebral aneurysm S/P hysterectomy S/P insertion of iliac artery stent S/P thyroidectomy Stenosis of left subclavian artery Social History household members: none Smoking Status: Current every day smoker tobacco type: cigarettes alcohol intake: never caffeine: Yes Type: coffee and tea ROS ROS Narrative GENERAL: denies fever, chills, night sweats, weight loss, anorexia HEENT: denies headache, sinus congestion, or drainage, dysphagia RESPIRATORY: dyspnea on exertion CARDIAC: denies chest pain, palpitations, orthopnea, PND GASTROINTESTINAL: denies abdominal pain, nausea, vomiting, melena, GENITOURINARY: denies dysuria, urgency, frequency, heamaturia EXTREMITY: denies swelling MUSCULOSKELETAL: denies current joint pain or tenderness NEUROLOGIC: denies focal numbness, weakness, tingling HEMATOLOGIC: denies easy bruising and/or hemorrhage INTEGUMENT: denies rashes PSYCHIATRIC: denies suicidal or homicidal ideation Vital Signs Vital Signs Vital Signs: 02/19/24 10:52 02/19/24 10:52 02/19/24 10:58 Temperature 98.1 F 98.1 F Temperature Source Oral Oral Pulse Rate 95 96 Respiratory Rate 18 13 Respiratory Effort Normal Non-Labored Respiratory Pattern Normal Blood Pressure 80/51 L 95/52 L Blood Pressure Mean 60 66 Blood Pressure Source Blood Pressure Position Blood Pressure Location Pulse Ox 94 94 Oxygen Delivery Method Room Air Room Air 02/19/24 11:10 02/19/24 11:30 02/19/24 11:42 Temperature Temperature Source Pulse Rate 99 92 87 Respiratory Rate 14 12 14 Respiratory Effort Respiratory Pattern Blood Pressure 80/51 L 99/55 L 90/70 Blood Pressure Mean 60 69 76 Blood Pressure Source Blood Pressure Position Blood Pressure Location Pulse Ox 92 94 91 Oxygen Delivery Method Room Air Room Air Room Air 02/19/24 11:43 02/19/24 11:45 02/19/24 12:54 Temperature Temperature Source Pulse Rate 81 97 Respiratory Rate 12 Respiratory Effort Respiratory Pattern Blood Pressure 97/62 90/60 113/68 Blood Pressure Mean 73 70 83 Blood Pressure Source Blood Pressure Position Blood Pressure Location Pulse Ox 96 Oxygen Delivery Method Room Air 02/19/24 13:45 Temperature 98.2 F Temperature Source Oral Pulse Rate 98 Respiratory Rate 20 H Respiratory Effort Respiratory Pattern Blood Pressure 113/93 H Blood Pressure Mean 99 Blood Pressure Source Monitor Blood Pressure Position Semi-Fowlers Blood Pressure Location Right Arm Pulse Ox 93 Oxygen Delivery Method Room Air Weight Weight: 61.4 kg Body Mass Index (BMI) 21.8 Physical Exam Narrative GENERAL: cooperative HEENT: Atraumatic; normocephalic EYES; Anicteric, pallor of the conjunctiva NECK; supple, normal thyroid, RESPIRATORY: Diminished to auscultation CARDIOVASCULAR: Regular S1 S2, GI: soft, normoactive bowel sounds, : No Renal angle tenderness; EXTREMITIES: No edema, no clubbing, MUSCULOSKELETAL: no muscle wasting NEURO: Awake; no lateralizing signs. SKIN: No Rash PSYCH; Flat affect Results Lab / Micro Data 02/19/24 11:15 02/19/24 11:15 Labs: Laboratory Results - last 24 hr 02/19/24 11:15: WBC 8.1, RBC 2.90 L, Hgb 6.6 L, Hct 22.4 L, MCV 77.2 L, MCH 22.8 L, MCHC 29.5 L, RDW Std Deviation 48.0 H, RDW Coeff of David 17.1 H, Plt Count 193, MPV 10.0, Immature Gran % (Auto) 0.500, Neut % (Auto) 73.5 H, Lymph % (Auto) 14.5 L, Cassia % (Auto) 8.5, Eos % (Auto) 2.6, Baso % (Auto) 0.4, Absolute Neuts (auto) 5.9, Absolute Lymphs (auto) 1.17, Nucleated RBC % 0, Sodium 137, Potassium 3.8, Chloride 106, Carbon Dioxide 25.0, Anion Gap 6, BUN 21 H, Creatinine 1.00, Estim Creat Clear Calc 49.70, Est GFR (MDRD) Af Amer 71, Est GFR (MDRD) Non-Af 58 L, BUN/Creatinine Ratio 21.0 H, Glucose 128 H, Calcium 8.3 L, Troponin I High Sens 6 02/19/24 11:18: POC Glucose 128 H 02/19/24 12:20: Blood Type O POSITIVE, Antibody Screen NEGATIVE, Crossmatch See Detail Micro: Microbiology 02/19/24 12:18 Stool Stool Occult Blood (CARMEN) - Final Occult Blood Positive Imaging Radiology Impression Chest X-Ray 02/19/24 11:55 IMPRESSION: Right lower lobe infiltrate with small right pleural effusion with mild degree of vascular congestion in the right hemithorax. Electronically Signed: Jovon Freitas MD at 12:50 EDT , Assessment & Plan Assessment/Plan (1) Symptomatic anemia: PLAN: Plan Patient is a 68-year-old lady presented with fatigue found to be anemic with hemoglobin of 6.6. Chest x-ray demonstrated right lower lobe infiltrate as well as mild vascular congestion 1. Symptomatic anemia ? Suspected to be secondary to chronic GI bleed. Patient is on apixaban for systemic anticoagulation for A-fib. Patient was guaiac positive. An order was given for patient to be transfused with 1 unit PRBC. Iron studies undertaken prior to patient being transfused 2. Suspected GI bleed ? Patient is on apixaban held consult placed to Dr. Gonzalez with GI for possible endoscopic evaluation 3. Pneumonia - Suspected to be secondary to streptococcal pneumonia, Blood and sputum cultures sent. Patient placed on Rocephin and Zithromax and placed on oxygen titrated to keep Pulse Ox greater than 90 4. Paroxysmal A-fib ? Rate controlled on systemic anticoagulation with apixaban held given patient anemia 5. Suspected congestive heart failure?1 with preserved ejection fraction ? Possibly precipitated by patient being anemic patient was placed on diuretic therapy 2D echo ordered 6. Hypertension - Blood pressure controlled, home medications continued with dose adjustment as needed 7. Multiple sclerosis ? Per history patient is on baclofen for muscle relaxation 8. Hypothyroidism ? Patient is on levothyroxine did continue with home dose 9. Peripheral arterial disease ? With history of bilateral carotid artery stenosis, peripheral vascular occ lusive disease. Patient was on systemic anticoagulation with apixaban held given about reasons 10. DVT prophylaxis ? Patient is on apixaban held Time spent in the patient's overall evaluation,decision-making process, review of diagnostic data, adjustment of management, discussion with other providers, nursing nursing and ancillary staff involved in patient's care documentation, 75 Minutes Advance planning; did discuss with the patient and family regarding advanced directives as well as CODE STATUS. Did explain the various scenarios involved ( FULL CODE, DNR CCA, DNR CCA with no intubation, and DNR CC and what each meant) patient elected remain full code with CPR and intubation if needed. Order was placed. Time spent on discussion 18 minutes. Charges/Coding Visit Charges Inpatient E&M: 41487 Init Hosp L3 Procedures Hospitalists Procedures: 87919 Advncd Care Plan 30 Min
[2024-02-19] MEDS: Ceftriaxone 2 GM in 0.9% Normal Saline (50mL MB+) 50 ML IV (14:29)
[2024-02-19] MEDS: Azithromycin 500 MG in Dextrose 5%-Water (250mL Bag) 250 ML 250 MG IV (14:56)
--- NOTE | 2024-02-19 15:03 | NURSING ---
PCU BRIGETTE ANEMIA, PNEUMONIA, CHF
[2024-02-19 15:58] LABS: Troponin-I HS 15 pg/mL (3.0-54.0)
[2024-02-19 17:47] LABS: Hematocrit 28.6 % (37-47); Hemoglobin 8.5 g/dL (12.0-15.0)
--- NOTE | 2024-02-19 19:08 | EX.PCM.CON.G ---
HPI Consult Data Date of Consult: 02/19/24 HPI Narrative Reason for Consultation: GI bleed HPI Narrative: ADY WALLER, is a 68-year-old female with past medical history significant significant for atrial fibrillation on Eliquis, psoriatic arthritis, hyperlipidemia, bilateral carotid artery stenosis, and peripheral vascular occlusive disease who presented via EMS for dizziness and hypertension at home. Patient reports this morning dizzy, as if she needed to eat something. She ate some pizza and took her blood pressure which she reported was over 200. She took her lisinopril and then found a bottle of metoprolol in which she took 12-1/2 mg. She reports her normal blood pressure is around 90/60 and her normal heart rate is 60 to 90s. She reports when her blood pressure was elevated she did have left arm pain. She does have pain between her scapula. Describes it as sharp and constant. No exacerbating or alleviating factors. She says she has had similar pain and is unable to recall the diagnosis. She reports hemoptysis x 1 month. She denies any recent illness. She does report she fell on Easter in the driveway onto her buttocks. She did not hit her head. She denies any recent hospitalization or travel. Imaging of the chest displayed : right lower lobe infiltrate with small right pleural effusion with mild degree of vascular congestion in the right hemithorax. In the ED she was discovered to have a hemoglobin of 6.6. I was consulted for acute onset anemia [facility] Medical History Angina pectoris Bilateral carotid artery stenosis Chronic pain syndrome Coronary artery disease Essential (primary) hypertension Fatty liver GERD (gastroesophageal reflux disease) Goiter History of transient ischemic attack (TIA) HLD (hyperlipidemia) Hypothyroidism Influenza A Multiple sclerosis Multiple sclerosis Nonobstructive atherosclerosis of coronary artery Nonsustained paroxysmal supraventricular tachycardia Osteoarthritis Osteoporosis Peripheral vascular occlusive disease Psoriasis Psoriatic arthritis Smoker Thrombocytopenia TIA (transient ischemic attack) Home Medications cholecalciferol (vitamin D3) 125 mcg (5,000 unit) tablet 5,000 unit PO DAILY supplement 12/16/13 [History Last Taken 12/01/23] gabapentin 800 mg tablet 800 mg PO TID MS 07/16/18 [History Last Taken 12/01/23] baclofen 20 mg tablet 20 mg PO Q6H MS 08/11/21 [History Last Taken 12/01/23] levothyroxine 50 mcg tablet 50 mcg PO DAILY thyroid 08/11/21 [History Last Taken 12/01/23] oxycodone 10 mg tablet 10 mg PO Q6H PRN pain 05/24/23 [History Last Taken 12/01/23] famotidine 20 mg tablet 20 mg PO DAILY 12/21/23 [History Last Taken Unknown] apixaban 5 mg tablet (Eliquis) 5 mg PO BID #60 tabs 01/11/24 [Rx Last Taken Unknown] dextromethorphan-guaifenesin ER 60 mg-1,200 mg tab,extend release,12hr (Mucinex DM) 1 tab PO Q12H PRN cough/congest 02/19/24 [History Last Taken Unknown] lisinopril 10 mg tablet 10 mg PO DAILY 02/19/24 [History Last Taken Unknown] Allergy/AdvReac Type Severity Reaction Status Date / Time colestipol [From Colestid] Allergy Mild unknown Verified 02/19/24 10:57 pregabalin [From Lyrica] Allergy Mild Hives Verified 02/19/24 10:57 amitriptyline Allergy Rash Verified 02/19/24 10:57 temazepam [From Restoril] AdvReac Mild Nausea/Vom/ Verified 02/19/24 10:57 Diarrhea Antihistamines - Alkylamine AdvReac Nausea/Vom/ Verified 02/19/24 10:57 Diarrhea Antihistamines - Ethanolamine AdvReac Nausea/Vom/ Verified 02/19/24 10:57 Diarrhea Antihistamines - AdvReac Nausea/Vom/ Verified 02/19/24 10:57 Ethylenediamine Diarrhea Antihistamines - Piperazine AdvReac Nausea/Vom/ Verified 02/19/24 10:57 Diarrhea Antihistamines - Piperidine AdvReac Nausea/Vom/ Verified 02/19/24 10:57 Diarrhea aspirin AdvReac I'M ON Verified 02/19/24 10:57 BLOOD THINNERS codeine AdvReac Nausea Verified 02/19/24 10:57 Corticosteroids AdvReac Upset Verified 02/19/24 10:57 (Glucocorticoids) Stomach morphine AdvReac Nausea Verified 02/19/24 10:57 Oqixsiy-Tao-Ddj Reductase AdvReac Nausea Verified 02/19/24 10:57 Inhibitor Family History Mother Cancer CAD (coronary artery disease) Brain tumor Grandfather CVA (cerebral vascular accident) Father CAD (coronary artery disease) Ruptured abdominal aortic aneurysm (AAA) Sister Brain aneurysm Surgical History Brain aneurysm Fracture of right lower leg H/O hemorrhoidectomy H/O: History of angioplasty of peripheral vessel History of angioplasty of peripheral vessel (07/11/19) History of appendectomy History of section History of cholecystectomy History of hemorrhoidectomy History of hysterectomy History of left breast biopsy History of left heart catheterization (01/25/15) History of left-sided carotid endarterectomy History of partial thyroidectomy (11/30/05) History of right-sided carotid endarterectomy S/P coil embolization of cerebral aneurysm S/P hysterectomy S/P insertion of iliac artery stent S/P thyroidectomy Stenosis of left subclavian artery Social History (Updated 02/19/24 @ 17:37 by Gale Beaulieu) household members: none housing: apartment Smoking Status: Current every day smoker tobacco type: cigarettes alcohol intake: never caffeine: Yes Type: coffee and tea ROS ROS Narrative GENERAL: denies fever, chills, night sweats, weight loss, anorexia HEENT: denies headache, sinus congestion, or drainage, dysphagia RESPIRATORY: dyspnea on exertion CARDIAC: denies chest pain, palpitations, orthopnea, PND GASTROINTESTINAL: denies abdominal pain, nausea, vomiting, melena, GENITOURINARY: denies dysuria, urgency, frequency, heamaturia EXTREMITY: denies swelling MUSCULOSKELETAL: denies current joint pain or tenderness NEUROLOGIC: denies focal numbness, weakness, tingling HEMATOLOGIC: denies easy bruising and/or hemorrhage INTEGUMENT: denies rashes PSYCHIATRIC: denies suicidal or homicidal ideation Physical Exam Narrative GENERAL: cooperative HEENT: Atraumatic; normocephalic EYES; Anicteric, pallor of the conjunctiva NECK; supple, normal thyroid, RESPIRATORY: Diminished to auscultation CARDIOVASCULAR: Regular S1 S2, GI: soft, normoactive bowel sounds, : No Renal angle tenderness; EXTREMITIES: No edema, no clubbing, MUSCULOSKELETAL: no muscle wasting NEURO: Awake; no lateralizing signs. SKIN: No Rash PSYCH; Flat affect Lab / Micro Data 04/02/24 17:30 02/19/24 11:15 Labs: Laboratory Results - last 24 hr 02/19/24 11:15: WBC 8.1, RBC 2.90 L, Hgb 6.6 L, Hct 22.4 L, MCV 77.2 L, MCH 22.8 L, MCHC 29.5 L, RDW Std Deviation 48.0 H, RDW Coeff of David 17.1 H, Plt Count 193, MPV 10.0, Immature Gran % (Auto) 0.500, Neut % (Auto) 73.5 H, Lymph % (Auto) 14.5 L, Johnston % (Auto) 8.5, Eos % (Auto) 2.6, Baso % (Auto) 0.4, Absolute Neuts (auto) 5.9, Absolute Lymphs (auto) 1.17, Nucleated RBC % 0, Sodium 137, Potassium 3.8, Chloride 106, Carbon Dioxide 25.0, Anion Gap 6, BUN 21 H, Creatinine 1.00, Estim Creat Clear Calc 49.70, Est GFR (MDRD) Af Amer 71, Est GFR (MDRD) Non-Af 58 L, BUN/Creatinine Ratio 21.0 H, Glucose 128 H, Calcium 8.3 L, Troponin I High Sens 6 02/19/24 11:18: POC Glucose 128 H 02/19/24 12:20: Blood Type O POSITIVE, Antibody Screen NEGATIVE, Crossmatch See Detail 02/19/24 14:10: Lactic Acid 1.0 02/19/24 15:00: Troponin I High Sens 15 02/19/24 17:30: Hgb 8.5 L, Hct 28.6 L Micro: Microbiology 02/19/24 17:15 Mucosa - Nose SARS-CoV-2, Influenza & RSV (PCR) - Final 02/19/24 Unknown Urine Catheter - Catheter Legionella Antigen - Final 02/19/24 Unknown Urine Catheter - Catheter Streptococcus pneumoniae Antigen (M - Final 02/19/24 12:18 Stool Stool Occult Blood (CARMEN) - Final Occult Blood Positive Imaging Radiology Impression Chest X-Ray 02/19/24 11:55 IMPRESSION: Right lower lobe infiltrate with small right pleural effusion with mild degree of vascular congestion in the right hemithorax. Electronically Signed: Jovon Freitas MD at 12:50 EDT , Assessment & Plan Assessment/Plan (1) Symptomatic anemia: PLAN: Plan a 68-year-old lady presented with fatigue and shortness of breath found to be anemic with hemoglobin of 6.6. Chest x-ray demonstrated right lower lobe infiltrate as well as mild vascular congestion She appears to have symptomatic anemia. I suspect that is a upper GI bleed with an acute on chronic GI blood loss. Her MCV is very low. Usually signifies iron deficiency anemia. I think she would benefit from an upper endoscopy. If that is negative that she may need a colonoscopy. Patient is on apixaban for systemic anticoagulation for A-fib. Patient was guaiac positive. An order was given for patient to be transfused with 1 unit PRBC. Iron studies undertaken prior to patient being transfused. She was explained alternatives, risk, benefits including not withstanding bleeding, infection, sepsis, perforation, need for emergent urgent . She will have an ASA of 3. Charges/Coding Visit Charges Inpatient E&M: 11706 Init Hosp L3
[2024-02-19] MEDS: Pantoprazole Sodium 40 MG in 0.9% Normal Saline (100mL MB+) 100 ML 330 MG IV (21:50)
[2024-02-19] MEDS: oxyCODONE 5 MG Tablet 10 MG PO (21:50)
[2024-02-19 23:02] LABS: Hematocrit 26.5 % (37-47); Hemoglobin 7.9 g/dL (12.0-15.0)
[2024-02-19] MEDS: Gabapentin 800 MG Tablet PO (23:46)
[2024-02-20] VITALS (12 sets, daily range): BP systolic 109–164; BP diastolic 54–91; PULSE 52–63; RESP 16–60; TEMP 36.4–36.8; O2SAT 87–98
[2024-02-20] MEDS: oxyCODONE 5 MG Tablet 10 MG PO ×5 (03:42→23:56)
[2024-02-20 05:22] LABS: Absolute Lymphocyte Count 1.07 X10^3/uL (0.83-4.51); Absolute Neutrophil Count 5.3 X10^3/uL (2.0-7.7); Basophil# 0.05 X10^3/uL; Basophil% 0.7 % (0-1); Eosinophil# 0.17 X10^3/uL; Eosinophils% 2.3 % (0-5); Hematocrit 25.5 % (37-47); Hemoglobin 7.7 g/dL (12.0-15.0); Lymphocyte # 1.07 X10^3/ul (0.83-4.51); Lymphocyte % 14.4 % (19-41); Mean Corp Hgb Conc 30.2 g/dL (32-36); Mean Corpuscular Hgb 23.4 pg (27.0-32.0); Mean Corpuscular Volume 77.5 fL (81-99); Mean Platelet Vol. 9.9 fl (6.2-12.0); Monocyte# 0.82 X10^3/uL; Monocyte% 11.1 % (0-10); NRBC Flagged by Analyzer 0 % (0-5); Neutrophil # 5.26 X10^3/uL (2.7-7.7); Platelet Count 208 K/mm3 (150-450); RBC Distribution Width CV 16.9 % (11.6-14.6); Red Blood Count 3.29 M/mm3 (4.2-5.4); White Blood Count 7.4 K/mm3 (4.4-11.0)
[2024-02-20 05:59] LABS: ALB/GLOB Ratio 0.8 RATIO (0.9-2.4); AST(SGOT) 10 U/L (15-37); Alanine Aminotransfer ALT/SGPT 10 U/L (13-56); Albumin, Serum 2.5 g/dL (3.2-5.0); Alkaline Phosphatase 147 U/L (45-117); Anion Gap 5 (5-15); BUN 16 mg/dL (7-18); BUN/Creat Ratio 18.6 RATIO (10-20); Calcium,Total 8.2 mg/dL (8.5-10.1); Chloride 110 mmol/L (98-107); Creatinine, Serum 0.86 mg/dL (0.55-1.02); EST Glomerular Filtration Rate 69 mL/min (>60); Est Glom Filt Rate - Afr Amer 84 mL/min (>60); Estimated Creatinine Clearance 54.39 ml/min; Globulin 3.1 g/dL (2.2-4.2); Glucose 97 mg/dL (74-106); Potassium 3.9 mmol/L (3.5-5.1); Protein, Total 5.6 g/dL (6.4-8.2); Sodium Level 140 mmol/L (136-145)
[2024-02-20] MEDS: Lactated Ringers 1,000 ML 15 ML IV (09:18)
--- NOTE | 2024-02-20 10:05 | PCM.PN.HOSP ---
Reason for Visit Reason for Visit: Diagnoses Anemia, unspecified (02/19/24) Subjective Subjective Patient is a 68-year-old lady admitted with symptomatic anemia. Transfused 1 unit PRBC hemoglobin up to 7.7. Seen in consultation by GI plan is for patient to undergo upper endoscopy and if negative colonoscopy. Objective Data Objective Data Vital Signs: Vital Signs Temp Pulse Resp BP Pulse Ox O2 Del Method 97.8 F 63 60 H 161/91 H 93 Room Air 02/20/24 09:13 02/20/24 09:13 02/20/24 09:13 02/20/24 09:13 02/20/24 09:13 02/20/24 09:13 Oxygen Delivery Method Room Air Weight: 55.8 kg Body Mass Index (BMI) 19.8 Intake & Output: Intake and Output for Last 24 Hours 02/18/24 02/19/24 02/20/24 23:59 23:59 23:59 Intake Total 1416 / 1416 Output Total 1500 / 1500 600 / 600 Balance -84 / -84 -600 / -600 Lab / Micro Data 02/20/24 04:55 02/20/24 04:55 Labs: Laboratory Results - last 24 hr 02/19/24 11:15: WBC 8.1, RBC 2.90 L, Hgb 6.6 L, Hct 22.4 L, MCV 77.2 L, MCH 22.8 L, MCHC 29.5 L, RDW Std Deviation 48.0 H, RDW Coeff of David 17.1 H, Plt Count 193, MPV 10.0, Immature Gran % (Auto) 0.500, Neut % (Auto) 73.5 H, Lymph % (Auto) 14.5 L, Telfair % (Auto) 8.5, Eos % (Auto) 2.6, Baso % (Auto) 0.4, Absolute Neuts (auto) 5.9, Absolute Lymphs (auto) 1.17, Nucleated RBC % 0, Sodium 137, Potassium 3.8, Chloride 106, Carbon Dioxide 25.0, Anion Gap 6, BUN 21 H, Creatinine 1.00, Estim Creat Clear Calc 49.70, Est GFR (MDRD) Af Amer 71, Est GFR (MDRD) Non-Af 58 L, BUN/Creatinine Ratio 21.0 H, Glucose 128 H, Calcium 8.3 L, Troponin I High Sens 6 02/19/24 11:18: POC Glucose 128 H 02/19/24 12:20: Blood Type O POSITIVE, Antibody Screen NEGATIVE, Crossmatch See Detail 02/19/24 14:10: Lactic Acid 1.0 02/19/24 15:00: Troponin I High Sens 15 02/19/24 17:30: Hgb 8.5 L, Hct 28.6 L 02/19/24 22:46: Hgb 7.9 L, Hct 26.5 L 02/20/24 04:55: WBC 7.4, RBC 3.29 L, Hgb 7.7 L, Hct 25.5 L, MCV 77.5 L, MCH 23.4 L, MCHC 30.2 L, RDW Std Deviation 48.0 H, RDW Coeff of Davdi 16.9 H, Plt Count 208, MPV 9.9, Immature Gran % (Auto) 0.500, Neut % (Auto) 71.0 H, Lymph % (Auto) 14.4 L, Telfair % (Auto) 11.1 H, Eos % (Auto) 2.3, Baso % (Auto) 0.7, Absolute Neuts (auto) 5.3, Absolute Lymphs (auto) 1.07, Nucleated RBC % 0, Sodium 140, Potassium 3.9, Chloride 110 H, Carbon Dioxide 25.0, Anion Gap 5, BUN 16, Creatinine 0.86, Estim Creat Clear Calc 54.39, Est GFR (MDRD) Af Amer 84, Est GFR (MDRD) Non-Af 69, BUN/Creatinine Ratio 18.6, Glucose 97, Calcium 8.2 L, Total Bilirubin 0.50, AST 10 L, ALT 10 L, Alkaline Phosphatase 147 H, Total Protein 5.6 L, Albumin 2.5 L, Globulin 3.1, Albumin/Globulin Ratio 0.8 L Micro: Microbiology 02/19/24 17:15 Mucosa - Nose SARS-CoV-2, Influenza & RSV (PCR) - Final 02/19/24 Unknown Urine Catheter - Catheter Legionella Antigen - Final 02/19/24 Unknown Urine Catheter - Catheter Streptococcus pneumoniae Antigen (M - Final 02/19/24 12:18 Stool Stool Occult Blood (CARMEN) - Final Occult Blood Positive Radiography Diagnostic Testing: Radiology Impression Chest X-Ray 02/19/24 11:55 IMPRESSION: Right lower lobe infiltrate with small right pleural effusion with mild degree of vascular congestion in the right hemithorax. Electronically Signed: Jovon Freitas MD at 12:50 EDT , Physical Exam Narrative GENERAL: cooperative HEENT: Atraumatic; normocephalic EYES; Anicteric, pallor of the conjunctiva NECK; supple, normal thyroid, RESPIRATORY: Diminished to auscultation CARDIOVASCULAR: Regular S1 S2, GI: soft, normoactive bowel sounds, : No Renal angle tenderness; EXTREMITIES: No edema, no clubbing, MUSCULOSKELETAL: no muscle wasting NEURO: Awake; no lateralizing signs. SKIN: No Rash PSYCH; Flat affect Assessment & Plan Assessment/Plan (1) Symptomatic anemia: PLAN: Plan Patient is a 68-year-old lady presented with fatigue found to be anemic with hemoglobin of 6.6. Chest x-ray demonstrated right lower lobe infiltrate as well as mild vascular congestion 1. Symptomatic anemia ? Suspected to be secondary to chronic GI bleed. Patient is on apixaban for systemic anticoagulation for A-fib. Patient was guaiac positive. An order was given for patient to be transfused with 1 unit PRBC. Iron studies undertaken prior to patient being transfused ? 02/20/2024; Transfused 1 unit PRBC hemoglobin up to 7.7. Seen in consultation by GI plan is for patient to undergo upper endoscopy and if negative colonoscopy. 2. Suspected GI bleed ? Patient is on apixaban held consult placed to Dr. Gonzalez with GI for possible endoscopic evaluation 3. Pneumonia - Suspected to be secondary to streptococcal pneumonia, Blood and sputum cultures sent. Patient placed on Rocephin and Zithromax and placed on oxygen titrated to keep Pulse Ox greater than 90 4. Paroxysmal A-fib ? Rate controlled on systemic anticoagulation with apixaban held given patient anemia 5. Suspected congestive heart failure?1 with preserved ejection fraction ? Possibly precipitated by patient being anemic patient was placed on diuretic therapy 2D echo ordered 6. Hypertension - Blood pressure controlled, home medications continued with dose adjustment as needed 7. Multiple sclerosis ? Per history patient is on baclofen for muscle relaxation 8. Hypothyroidism ? Patient is on levothyroxine did continue with home dose 9. Peripheral arterial disease ? With history of bilateral carotid artery stenosis, peripheral vascular occlusive disease. Patient was on systemic anticoagulation with apixaban held given about reasons 10. DVT prophylaxis ? Patient is on apixaban held Time spent in the patient's overall evaluation,decision-making process, review of diagnostic data, adjustment of management, discussion with other providers, nursing nursing and ancillary staff involved in patient's care documentation, 50 Minutes Charges/Coding Visit Charges Inpatient E&M: 41799 [facility] Hosp L3
--- NOTE | 2024-02-20 10:14 | OP.EGD_ITS ---
Patient Name: Angélica Yo Procedure Date: 02/20/2024 9:52 AM Date of : 1955 Age: 68 Procedure: Upper GI endoscopy Indications: Iron deficiency anemia Providers: Kevin Gonzalez DO Medicines: Monitored Anesthesia Care Patient Profile: This is a 68 year old female. Refer to note in patient chart for documentation of history and physical. Patient has symptoms. Complications: No immediate complications. Procedure: Pre-Anesthesia Assessment: - Prior to the procedure, a History and Physical was performed, and patient medications and allergies were reviewed. The patient is competent. The risks and benefits of the procedure and the sedation options and risks were discussed with the patient. All questions were answered and informed consent was obtained. Patient identification and proposed procedure were verified by the physician in the pre-procedure area. Mental Status Examination: alert and oriented. Airway Examination: normal oropharyngeal airway and neck mobility. Respiratory Examination: clear to auscultation. CV Examination: normal. Prophylactic Antibiotics: The patient does not require prophylactic antibiotics. Prior Anticoagulants: The patient has taken no anticoagulant or antiplatelet agents. ASA Grade Assessment: III - A patient with severe systemic disease. After reviewing the risks and benefits, the patient was deemed in satisfactory condition to undergo the procedure. The anesthesia plan was to use monitored anesthesia care (MAC). Immediately prior to administration of medications, the patient was re-assessed for adequacy to receive sedatives. The heart rate, respiratory rate, oxygen saturations, blood pressure, adequacy of pulmonary ventilation, and response to care were monitored throughout the procedure. The physical status of the patient was re-assessed after the procedure. After obtaining informed consent, the endoscope was passed under direct vision. Throughout the procedure, the patient's blood pressure, pulse, and oxygen saturations were monitored continuously. The gastroscope was introduced through the mouth, and advanced to the second part of duodenum. The upper GI endoscopy was accomplished without difficulty. The patient tolerated the procedure well. Scope In: 10:05:23 AM Scope Out: 10:08:40 AM Total Procedure Duration Time 0 hours 3 minutes 17 seconds Findings: No gross lesions were noted in the entire esophagus. No gross lesions were noted in the entire examined stomach. Two 5 mm angiodysplastic lesions without bleeding were found in the duodenal bulb. Coagulation for bleeding prevention using argon plasma at 0.3 liters/minute and 20 kitchen was successful. Estimated blood loss was minimal. Patchy moderate inflammation characterized by congestion (edema) and erythema was found in the duodenal bulb and in the first portion of the duodenum. Biopsies were taken with a cold forceps for histology. Verification of patient identification for the specimen was done. Estimated blood loss was minimal. Impression: - No gross lesions in the entire esophagus. - No gross lesions in the entire stomach. 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 Treated with argon plasma coagulation (APC). - Chronic duodenitis. Biopsied. Recommendation: - [facility] to [facility] for [facility] care. - Resume regular diet. - Continue present medications. - Await pathology results. Procedure Code(s): --- Professional --- 96818, 59, Esophagogastroduodenoscopy, flexible, transoral; with control of bleeding, any method 97151, 51, Esophagogastroduodenoscopy, flexible, transoral; with biopsy, single or multiple CPT copyright 2021 [employer]. All rights reserved. The codes documented in this report are preliminary and upon district branch manager review may be revised to meet current compliance requirements. Kevin Gonzalez DO 02/20/2024 10:14:37 AM This report has been signed electronically. Number of Addenda: 0 Note Initiated On: 02/20/2024 9:52 AM
--- NOTE | 2024-02-20 10:15 | OP.CCLET_ITS ---
02/20/2024 Daron Benton [address] [place] [address] Re : Upper GI endoscopy procedure for Angélica Yo Dear Dr. Benton This procedure was performed on Tuesday, February 20, 2024. My impressions and recommendations are as follows: Impressions : - No gross lesions in the entire esophagus. - No gross lesions in the entire stomach. 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 Treated with argon plasma coagulation (APC). - Chronic duodenitis. Biopsied. Recommendations : - Return patient to [facility] for ongoing care. - Resume regular diet. - Continue present medications. - Await pathology results. My findings are described in the full procedure note, which is enclosed. If I can be of further assistance, please feel free to contact me at . Sincerely, Kevin Gonzalez DO 02/20/2024 10:14:37 AM This report has been signed electronically.
--- NOTE | 2024-02-20 10:15 | EGD_PTH ---
PATIENT: ADY WALLER LOC: [facility] U#:[id number] AGE/SX: 68/F ROOM: [facility] RE02/19/[address]: Dr. Eva Mortensen DO : 1955 BED: 1 DIS: 02/25/2024 SPEC #: [id number] RECD: 02/20/24 13:14 STATUS: MARY REJose #: [id number] LIZBET: 02/20/24 10:[address]: Kevin Gonzalez DEPT: SURGICAL PATHOLOGY RECD BY: Mirta Scales ENTERED: 02/20/24 13:59 SP TYPE: EGD BIOPSY OTHR DR: MD Dr. Daron Hurt MD Tissues: Duodenum, NOS Procedures: Surgery Specimen Level IV Comments: @ Ordering doctor for SUIV edited from to @ by JONAH at 02/21/24 1052 @ Submitting doctor edited from to @ by JONAH at 02/21/24 1052 HEADER OPERATION: EGD and biopsy PRE-OP DIAGNOSIS: GI bleed TISSUE SUBMITTED: Duodenum MICROSCOPIC DIAGNOSIS Duodenum, biopsy: Mild non-specific chronic inflammation. / 02/21/24 MICROSCOPIC DESCRIPTION Slides are reviewed. GROSS DESCRIPTION Received in fixative is one container labeled with the patient's name and designated Duodenum. The specimen consists of two irregular fragments of light rubalcava soft tissue that in aggregate measure 0.6 x 0.3 x 0.1 cm. The specimen is totally submitted in one cassette. / 02/20/24 TC:3 CPT: 96237
[2024-02-20] MEDS: Ceftriaxone 2 GM in 0.9% Normal Saline (50mL MB+) 50 ML IV (10:58)
[2024-02-20] MEDS: Azithromycin 500 MG in Dextrose 5%-Water (250mL Bag) 250 ML 250 MG IV (10:58)
[2024-02-20] MEDS: Pantoprazole Sodium 40 MG in 0.9% Normal Saline (100mL MB+) 100 ML 330 MG IV ×2 (10:58→21:32)
[2024-02-20] MEDS: Cholecalciferol (Vit D3) 125 MCG CAPSULE (5,000 UNITS) PO (11:10)
[2024-02-20] MEDS: Lisinopril 10 MG Tablet PO (11:10)
--- NOTE | 2024-02-20 11:30 | CASEMGMT ---
EVERT CHAVARRIA Face to Face with patient for initial transition planning/care coordination assessment. RN DEON introduced self and role at [facility]. Patient lying in bed, alert and oriented. Patient willing to participate in assessment and is able to answer all questions appropriately. Care providers, pharmacy, and demographics verified. PCP: [facility] Specialists: Etelvina, neurologist; Nidia, grade foreman Preferred Pharmacy: [facility] Insurance: [email or web address] Prescription Benefit: yes Living Will/HPOA: none LNOK: sons Living Arrangements: Patient lives alone in a first floor apartment with no steps to enter. Patient states she is independent at home. Transportation: [facility] Van, [employer] DME/HHC: Patient states she has shower chair, rasied toilet, cane, grabs, walker, rollator, scooter, pulse ox at home. Patient has had [facility] HHC in the past. Patient is active with Waiver Program with DEON Madsen. Patient has aides 2x per week for 10hours per week. SW notified. Patient wishes to discharge home, will monitor for HHC pending therapy. Patient states he has no further needs or concerns at this time. CM to follow for discharge planning needs that may arise. Disposition Plan: Patient to discharge home with family support and follow-up plan in place. Will monitor for HHC Tena KELSEY, RN, CM
[2024-02-20 11:57] LABS: Hematocrit 24.7 % (37-47); Hemoglobin 7.3 g/dL (12.0-15.0)
[2024-02-20] MEDS: Gabapentin 800 MG Tablet PO ×2 (13:09→21:32)
[2024-02-20] MEDS: Senna/Docusate Sodium 1 Tablet 2 TABLET PO (13:26)
[2024-02-20] MEDS: guaiFENesin/D-Methorphan TAB.SR.12H 1 TABLET PO (15:27)
[2024-02-20] MEDS: Baclofen 10 MG Tablet 20 MG PO ×2 (16:58→23:56)
--- NOTE | 2024-02-20 20:08 | CASEMGMT ---
Social Work Received update from [facility] product manager medical device Tena Torres. Who reports patient receives waiver services through the [facility] on aging. 10 hours of home health aides a week. Tena is the healthcare administrator. Called [facility] on aging and spoke with patient healthcare administrator Tena Frank at [phone]. Updated to admission. Tena requested discharge instructions be faxed to the [facility] agency on aging at [phone], for continuity of care of patient. -DEBI Veloz, TOOL DISTRIBUTOR
[2024-02-21 02:57] VITALS: BP 120/62; PULSE 58; RESP 18; TEMP 36.7; O2SAT 95
[2024-02-21] MEDS: oxyCODONE 5 MG Tablet 10 MG PO ×4 (04:11→17:03)
[2024-02-21] MEDS: Baclofen 10 MG Tablet 20 MG PO ×4 (05:01→22:12)
[2024-02-21] MEDS: Gabapentin 800 MG Tablet PO ×3 (05:01→22:00)
[2024-02-21] MEDS: Levothyroxine 50 MCG Tablet PO (05:02)
[2024-02-21 06:50] LABS: ALB/GLOB Ratio 0.8 RATIO (0.9-2.4); AST(SGOT) 9 U/L (15-37); Alanine Aminotransfer ALT/SGPT 8 U/L (13-56); Albumin, Serum 2.4 g/dL (3.2-5.0); Alkaline Phosphatase 138 U/L (45-117); Anion Gap 5 (5-15); BUN 18 mg/dL (7-18); BUN/Creat Ratio 19.9 RATIO (10-20); Calcium,Total 7.9 mg/dL (8.5-10.1); Chloride 110 mmol/L (98-107); Creatinine, Serum 0.91 mg/dL (0.55-1.02); EST Glomerular Filtration Rate 65 mL/min (>60); Est Glom Filt Rate - Afr Amer 79 mL/min (>60); Glucose 90 mg/dL (74-106); Potassium 3.7 mmol/L (3.5-5.1); Protein, Total 5.4 g/dL (6.4-8.2); Sodium Level 139 mmol/L (136-145)
[2024-02-21] MEDS: Senna/Docusate Sodium 1 Tablet 2 TABLET PO (08:15)
--- NOTE | 2024-02-21 10:02 | PN.HOSP_ITS ---
Reason for Visit Reason for Visit: Diagnoses Anemia, unspecified (02/19/24) Subjective Subjective Patient underwent EGD the day prior results are as below. Her hemoglobin level continues to decline. Patient started on parenteral iron Objective Data Objective Data Vital Signs: Vital Signs Temp Pulse Resp BP Pulse Ox O2 Del Method O2 Flow Rate 98.1 F 58 L 18 120/62 95 Room Air 1 02/21/24 02:57 02/21/24 02:57 02/21/24 02:57 02/21/24 02:57 02/21/24 02:57 02/21/24 08:06 02/21/24 02:57 Oxygen Flow Rate (L/min) 1 Oxygen Delivery Method Room Air Weight: 55.8 kg Body Mass Index (BMI) 19.8 Intake & Output: Intake and Output for Last 24 Hours 02/19/24 02/20/24 02/21/24 23:59 23:59 23:59 Intake Total 1416 / 1416 560 / 560 250 / 250 Output Total 1500 / 1500 1800 / 1800 250 / 250 Balance -84 / -84 -1240 / -1240 0 / 0 Lab / Micro Data 02/20/24 11:50 02/21/24 06:10 Labs: Laboratory Results - last 24 hr 02/20/24 11:50: Hgb 7.3 L, Hct 24.7 L 02/21/24 06:10: Sodium 139, Potassium 3.7, Chloride 110 H, Carbon Dioxide 24.0, Anion Gap 5, BUN 18, Creatinine 0.91, Estim Creat Clear Calc 51.40, Est GFR (MDRD) Af Amer 79, Est GFR (MDRD) Non-Af 65, BUN/Creatinine Ratio 19.9, Glucose 90, Calcium 7.9 L, Total Bilirubin 0.30, AST 9 L, ALT 8 L, Alkaline Phosphatase 138 H, Total Protein 5.4 L, Albumin 2.4 L, Globulin 3.0, Albumin/Globulin Ratio 0.8 L Micro: Microbiology 02/19/24 17:15 Mucosa - Nose SARS-CoV-2, Influenza & RSV (PCR) - Final 02/19/24 Unknown Urine Catheter - Catheter Legionella Antigen - Final 02/19/24 Unknown Urine Catheter - Catheter Streptococcus pneumoniae Antigen (M - Final 02/19/24 12:18 Stool Stool Occult Blood (CARMEN) - Final Occult Blood Positive Physical Exam Narrative GENERAL: cooperative HEENT: Atraumatic; normocephalic EYES; Anicteric, pallor of the conjunctiva NECK; supple, normal thyroid, RESPIRATORY: Diminished to auscultation CARDIOVASCULAR: Regular S1 S2, GI: soft, normoactive bowel sounds, : No Renal angle tenderness; EXTREMITIES: No edema, no clubbing, MUSCULOSKELETAL: no muscle wasting NEURO: Awake; no lateralizing signs. SKIN: No Rash PSYCH; Flat affect Assessment & Plan Assessment/Plan (1) Symptomatic anemia: PLAN: Plan Patient is a 68-year-old lady presented with fatigue found to be anemic with hemoglobin of 6.6. Chest x-ray demonstrated right lower lobe infiltrate as well as mild vascular congestion 1. Symptomatic anemia ? Suspected to be secondary to chronic GI bleed. Patient is on apixaban for systemic anticoagulation for A-fib. Patient was guaiac positive. An order was given for patient to be transfused with 1 unit PRBC. Iron studies undertaken prior to patient being transfused ? 02/20/2024; Transfused 1 unit PRBC hemoglobin up to 7.7. Seen in consultation by GI plan is for patient to undergo upper endoscopy and if negative colonoscopy. ? 02/21/2024 patient underwent EGD on 02/20/2024 results and recommendations as below Impressions : - No gross lesions in the entire esophagus. - No gross lesions in the entire stomach. 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 Treated with argon plasma coagulation (APC). - Chronic duodenitis. Biopsied. Recommendations : - [facility] to [facility] for [facility] care. - Resume regular diet. - Continue present medications. - Await pathology results. ?Patient hemoglobin still low patient started on parenteral iron 2. Suspected GI bleed ? Patient is on apixaban held consult placed to Dr. Gonzalez with GI for possible endoscopic evaluation 3. Pneumonia - Suspected to be secondary to streptococcal pneumonia, Blood and sputum cultures sent. Patient placed on Rocephin and Zithromax and placed on oxygen titrated to keep Pulse Ox greater than 90 4. Paroxysmal A-fib ? Rate controlled on systemic anticoagulation with apixaban held given patient anemia 5. Suspected congestive heart failure?1 with preserved ejection fraction ? Possibly precipitated by patient being anemic patient was placed on diuretic therapy 2D echo ordered 6. Hypertension - Blood pressure controlled, home medications continued with dose adjustment as needed 7. Multiple sclerosis ? Per history patient is on baclofen for muscle relaxation 8. Hypothyroidism ? Patient is on levothyroxine did continue with home dose 9. Peripheral arterial disease ? With history of bilateral carotid artery stenosis, peripheral vascular occlusive disease. Patient was on systemic anticoagulation with apixaban held given about reasons 10. DVT prophylaxis ? Patient is on apixaban held Time spent in the patient's overall evaluation,decision-making process, review of diagnostic data, adjustment of management, discussion with other providers, nursing nursing and ancillary staff involved in patient's care documentation, 50 Minutes Charges/Coding Visit Charges Inpatient E&M: 92567 [facility] Hosp L3
[2024-02-21 10:41] VITALS: BP 157/77; PULSE 59; RESP 16; TEMP 36.3; O2SAT 100
[2024-02-21] MEDS: Lisinopril 10 MG Tablet PO (10:48)
[2024-02-21] MEDS: Cholecalciferol (Vit D3) 125 MCG CAPSULE (5,000 UNITS) PO (10:48)
[2024-02-21] MEDS: Pantoprazole Sodium 40 MG in 0.9% Normal Saline (100mL MB+) 100 ML 330 MG IV ×2 (10:48→21:58)
[2024-02-21] MEDS: Ceftriaxone 2 GM in 0.9% Normal Saline (50mL MB+) 50 ML IV (11:31)
[2024-02-21] MEDS: Azithromycin 500 MG in Dextrose 5%-Water (250mL Bag) 250 ML 250 MG IV (12:23)
[2024-02-21] MEDS: Sodium Ferric Gluconat/Sucrose 250 MG in 0.9% Normal Saline (250mL Bag) 250 ML 135 MG IV (14:16)
[2024-02-21 14:24] VITALS: BP 89/58; PULSE 53; RESP 16; TEMP 36.9; O2SAT 98
[2024-02-21 17:06] VITALS: BP 127/56; PULSE 61; RESP 16; TEMP 36.4; O2SAT 96
--- NOTE | 2024-02-21 17:10 | EX.PCM.PN.GI ---
Subjective Subjective She underwent an upper endoscopy yesterday for acute GI blood loss and was determined to have a couple small angiodysplastic lesions without any bleeding stigmata. There were treated endoscopically Objective Data Objective Data Vital Signs: Vital Signs Temp Pulse Resp BP Pulse Ox O2 Del Method O2 Flow Rate 97.5 F L 61 16 127/56 H 96 Room Air 2 02/21/24 17:06 02/21/24 17:06 02/21/24 17:06 02/21/24 17:06 02/21/24 17:06 02/21/24 17:06 02/21/24 14:23 Oxygen Flow Rate (L/min) 2 Oxygen Delivery Method Room Air Weight: 123 lb 0.287 oz Body Mass Index (BMI) 19.8 Intake & Output: Intake and Output for Last 24 Hours 02/19/24 02/20/24 02/21/24 23:59 23:59 23:59 Intake Total 1416 / 1416 560 / 560 935 / 935 Output Total 1500 / 1500 1800 / 1800 750 / 750 Balance -84 / -84 -1240 / -1240 185 / 185 Lab / Micro Data 02/20/24 11:50 02/21/24 06:10 Labs: Laboratory Results - last 24 hr 02/21/24 06:10: Sodium 139, Potassium 3.7, Chloride 110 H, Carbon Dioxide 24.0, Anion Gap 5, BUN 18, Creatinine 0.91, Estim Creat Clear Calc 51.40, Est GFR (MDRD) Af Amer 79, Est GFR (MDRD) Non-Af 65, BUN/Creatinine Ratio 19.9, Glucose 90, Calcium 7.9 L, Total Bilirubin 0.30, AST 9 L, ALT 8 L, Alkaline Phosphatase 138 H, Total Protein 5.4 L, Albumin 2.4 L, Globulin 3.0, Albumin/Globulin Ratio 0.8 L Micro: Microbiology 02/19/24 14:20 Blood Culture (Wb) - Arm Left Blood Culture - Preliminary No growth in 48 hours. 02/19/24 14:10 Blood Culture (Wb) - Arm Left Blood Culture - Preliminary No growth in 48 hours. 02/19/24 17:15 Mucosa - Nose SARS-CoV-2, Influenza & RSV (PCR) - Final 02/19/24 Unknown Urine Catheter - Catheter Legionella Antigen - Final 02/19/24 Unknown Urine Catheter - Catheter Streptococcus pneumoniae Antigen (M - Final 02/19/24 12:18 Stool Stool Occult Blood (CARMEN) - Final Occult Blood Positive Physical Exam Narrative GENERAL: cooperative HEENT: Atraumatic; normocephalic EYES; Anicteric, pallor of the conjunctiva NECK; supple, normal thyroid, RESPIRATORY: Diminished to auscultation CARDIOVASCULAR: Regular S1 S2, GI: soft, normoactive bowel sounds, : No Renal angle tenderness; EXTREMITIES: No edema, no clubbing, MUSCULOSKELETAL: no muscle wasting NEURO: Awake; no lateralizing signs. SKIN: No Rash PSYCH; Flat affect Assessment & Plan Assessment/Plan (1) Symptomatic anemia: PLAN: Plan a 68-year-old lady presented with fatigue and shortness of breath found to be anemic with hemoglobin of 6.6. Chest x-ray demonstrated right lower lobe infiltrate as well as mild vascular congestion She appears to have symptomatic anemia. I suspected that was a upper GI bleed with an acute on chronic GI blood loss. Her MCV is very low there was no sign of recent. GI blood loss anemia seen on her upper endoscopy. With her MCV low she should undergo colonoscopy. I will leave it up to the patient to see if she wants to do it inpatient or outpatient. Charges/Coding Visit Charges Inpatient E&M: 03413 [facility] Hosp L3
[2024-02-21] MEDS: Acetaminophen 325 MG Tablet 650 MG PO (22:00)
[2024-02-21 22:05] VITALS: BP 146/57; PULSE 55; RESP 18; TEMP 37; O2SAT 99
[2024-02-22] VITALS (8 sets, daily range): BP systolic 125–182; BP diastolic 63–79; PULSE 50–77; RESP 16–18; TEMP 36.2–36.7; O2SAT 96–98
[2024-02-22] MEDS: oxyCODONE 5 MG Tablet 10 MG PO ×4 (00:15→23:43)
[2024-02-22] MEDS: Levothyroxine 50 MCG Tablet PO (04:48)
[2024-02-22] MEDS: Gabapentin 800 MG Tablet PO (04:48)
[2024-02-22] MEDS: Baclofen 10 MG Tablet 20 MG PO ×4 (04:48→22:52)
--- NOTE | 2024-02-22 07:36 | PCM.PN.HOSP ---
Reason for Visit Reason for Visit: Diagnoses Anemia, unspecified (02/19/24) Subjective Subjective Patient seen remains significantly lethargic this a.m. Did adjust dose of patient gabapentin dose. Hemoglobin down to 7.2. Ordered additional dose of Venofer. Objective Data Objective Data Vital Signs: Vital Signs Temp Pulse Resp BP Pulse Ox O2 Del Method O2 Flow Rate 97.8 F 50 L 16 130/67 H 98 Nasal Cannula 3 02/22/24 04:45 02/22/24 04:45 02/22/24 04:45 02/22/24 04:45 02/22/24 04:45 02/22/24 04:54 02/22/24 04:45 Oxygen Flow Rate (L/min) 3 Oxygen Delivery Method Nasal Cannula Weight: 55.8 kg Body Mass Index (BMI) 19.8 Intake & Output: Intake and Output for Last 24 Hours 02/20/24 02/21/24 02/22/24 23:59 23:59 23:59 Intake Total 560 / 560 1685 / 1685 240 / 240 Output Total 1800 / 1800 1250 / 1250 250 / 250 Balance -1240 / -1240 435 / 435 -10 / -10 Lab / Micro Data 02/22/24 06:45 02/22/24 06:45 Micro: Microbiology 02/19/24 14:20 Blood Culture (Wb) - Arm Left Blood Culture - Preliminary No growth in 48 hours. 02/19/24 14:10 Blood Culture (Wb) - Arm Left Blood Culture - Preliminary No growth in 48 hours. 02/19/24 17:15 Mucosa - Nose SARS-CoV-2, Influenza & RSV (PCR) - Final 02/19/24 Unknown Urine Catheter - Catheter Legionella Antigen - Final 02/19/24 Unknown Urine Catheter - Catheter Streptococcus pneumoniae Antigen (M - Final 02/19/24 12:18 Stool Stool Occult Blood (CARMEN) - Final Occult Blood Positive Physical Exam Narrative GENERAL: cooperative HEENT: Atraumatic; normocephalic EYES; Anicteric, pallor of the conjunctiva NECK; supple, normal thyroid, RESPIRATORY: Diminished to auscultation CARDIOVASCULAR: Regular S1 S2, GI: soft, normoactive bowel sounds, : No Renal angle tenderness; EXTREMITIES: No edema, no clubbing, MUSCULOSKELETAL: no muscle wasting NEURO: Awake; no lateralizing signs. SKIN: No Rash PSYCH; Flat affect Assessment & Plan Assessment/Plan (1) Symptomatic anemia: PLAN: Plan Patient is a 68-year-old lady presented with fatigue found to be anemic with hemoglobin of 6.6. Chest x-ray demonstrated right lower lobe infiltrate as well as mild vascular congestion 1. Symptomatic anemia ? Suspected to be secondary to chronic GI bleed. Patient is on apixaban for systemic anticoagulation for A-fib. Patient was guaiac positive. An order was given for patient to be transfused with 1 unit PRBC. Iron studies undertaken prior to patient being transfused ? 02/20/2024; Transfused 1 unit PRBC hemoglobin up to 7.7. Seen in consultation by GI plan is for patient to undergo upper endoscopy and if negative colonoscopy. ? 02/21/2024 patient underwent EGD on 02/20/2024 results and recommendations as below Impressions : - No gross lesions in the entire esophagus. - No gross lesions in the entire stomach. 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 Treated with argon plasma coagulation (APC). - Chronic duodenitis. Biopsied. Recommendations : - [facility] for [facility]. - Resume regular diet. - Continue present medications. - Await pathology results. ?Patient hemoglobin still low patient started on parenteral iron ? 02/22/2024 hemoglobin down to 7.2. Patient was seen the day prior by Dr. Gonzalez with GI patient given the option of either having inpatient versus outpatient colonoscopy. Additional Venofer given. 2. Suspected GI bleed ? Patient is on apixaban held consult placed to Dr. Gonzalez with GI for possible endoscopic evaluation 3. Pneumonia - Suspected to be secondary to streptococcal pneumonia, Blood and sputum cultures sent. Patient placed on Rocephin and Zithromax and placed on oxygen titrated to keep Pulse Ox greater than 90 4. Paroxysmal A-fib ? Rate controlled on systemic anticoagulation with apixaban held given patient anemia 5. Suspected congestive heart failure?1 with preserved ejection fraction ? Possibly precipitated by patient being anemic patient was placed on diuretic therapy 2D echo ordered 6. Hypertension - Blood pressure controlled, home medications continued with dose adjustment as needed 7. Multiple sclerosis ? Per history patient is on baclofen for muscle relaxation 8. Hypothyroidism ? Patient is on levothyroxine did continue with home dose 9. Peripheral arterial disease ? With history of bilateral carotid artery stenosis, peripheral vascular occlusive disease. Patient was on systemic anticoagulation with apixaban held given about reasons 10. DVT prophylaxis ? Patient is on apixaban held 11. Acute toxic encephalopathy ? Patient is on multiple psychotropic medications including gabapentin dose adjusted given her significant lethargy Time spent in the patient's overall evaluation,decision-making process, review of diagnostic data, adjustment of management, discussion with other providers, nursing nursing and ancillary staff involved in patient's care documentation, 52 Minutes Charges/Coding Visit Charges Inpatient E&M: 69820 [facility] Hosp L3
[2024-02-22 07:39] LABS: Absolute Lymphocyte Count 1.09 X10^3/uL (0.83-4.51); Absolute Neutrophil Count 5.3 X10^3/uL (2.0-7.7); Basophil# 0.07 X10^3/uL; Basophil% 0.9 % (0-1); Eosinophil# 0.24 X10^3/uL; Eosinophils% 3.1 % (0-5); Hematocrit 25.4 % (37-47); Hemoglobin 7.2 g/dL (12.0-15.0); Lymphocyte # 1.09 X10^3/ul (0.83-4.51); Lymphocyte % 14.2 % (19-41); Mean Corp Hgb Conc 28.3 g/dL (32-36); Mean Corpuscular Hgb 22.6 pg (27.0-32.0); Mean Corpuscular Volume 79.9 fL (81-99); Monocyte# 0.96 X10^3/uL; Monocyte% 12.5 % (0-10); NRBC Flagged by Analyzer 0 % (0-5); Neutrophil # 5.25 X10^3/uL (2.7-7.7); Neutrophil % 68.8 % (47-70); Platelet Count 213 K/mm3 (150-450); RBC Distribution Width SD 52.1 fl (35.1-43.9); Red Blood Count 3.18 M/mm3 (4.2-5.4); White Blood Count 7.7 K/mm3 (4.4-11.0)
[2024-02-22 08:16] LABS: ALB/GLOB Ratio 0.7 RATIO (0.9-2.4); AST(SGOT) 9 U/L (15-37); Alanine Aminotransfer ALT/SGPT 8 U/L (13-56); Albumin, Serum 2.2 g/dL (3.2-5.0); Alkaline Phosphatase 133 U/L (45-117); Anion Gap 4 (5-15); BUN 17 mg/dL (7-18); BUN/Creat Ratio 17.8 RATIO (10-20); Calcium,Total 8.3 mg/dL (8.5-10.1); Chloride 114 mmol/L (98-107); Creatinine, Serum 0.96 mg/dL (0.55-1.02); EST Glomerular Filtration Rate 62 mL/min (>60); Est Glom Filt Rate - Afr Amer 74 mL/min (>60); Estimated Creatinine Clearance 48.72 ml/min; Glucose 93 mg/dL (74-106); Potassium 3.6 mmol/L (3.5-5.1); Protein, Total 5.2 g/dL (6.4-8.2); Sodium Level 143 mmol/L (136-145)
[2024-02-22] MEDS: Lisinopril 10 MG Tablet PO (09:06)
[2024-02-22] MEDS: Cholecalciferol (Vit D3) 125 MCG CAPSULE (5,000 UNITS) PO (09:06)
[2024-02-22] MEDS: 0.9% Saline Lock 10 ML Syringe IV ×2 (09:09→13:12)
[2024-02-22] MEDS: Pantoprazole Sodium 40 MG in 0.9% Normal Saline (100mL MB+) 100 ML 330 MG IV ×2 (09:12→20:58)
[2024-02-22] MEDS: Ceftriaxone 2 GM in 0.9% Normal Saline (50mL MB+) 50 ML IV (10:07)
[2024-02-22] MEDS: Azithromycin 500 MG in Dextrose 5%-Water (250mL Bag) 250 ML 250 MG IV (10:55)
[2024-02-22] MEDS: Sodium Ferric Gluconat 250 MG in 0.9% Normal Saline 250 ML 135 MG IV (12:39)
--- NOTE | 2024-02-22 15:46 | CASEMGMT ---
EVERT CHAVARRIA NOTE: RN DEON to room to discuss discharge planning. Pt states she feels safe to discharge home when medically ready and would like [facility] HHC, stating she has had them in the past. She declines wanting a list of other HHC options unless [facility] unable to accept her. Order placed for HHC: SN and PT/OT. Call placed to [facility] and referral made. Pt's PCP, Dr Benton, typically requires office visits prior being willing to follow for HHC. Call placed to Dr Benton's office. Pt already has an appt w/Dr Benton on 02/28. EVERT CHAVARRIA spoke w/Dr Benton's nurse, Mary Lou. She states pt's last office visit w/Dr Benton was 02/17. Mary Lou checked w/Dr Benton who states he is willing to follow for HHC w/out an earlier appt than 02/28. Call back to [facility] and she was made aware. They are able to accept pt w/SOC slated for Sunday. Pt made aware and voices appreciation. Green sheet placed on pt's chart for HHC and O2, if she qualifies. Yusef KELSEY RN, CM
--- NOTE | 2024-02-22 16:22 | CHAPLAIN ---
Type of Pastoral Visit _x__ Initial Visit ___ Follow-up Visit ___ On-call Visit ___ General Patient Visit ___ Spiritual Assessment ___ Family Conference ___ Bereavement ___ Rapid Response ___ Code Blue ___ Other (describe below) Pastoral Care Referral From _x__ Patient ___ Family ___ Nurse ___ Physician ___ Licensed Occupational Therapy Assistant ___ Security Operations Center Operator ___ Other (describe below) Sacrament/Intervention ___ Active listening ___ Anointing ___ Mormonism ___ Bereavement ___ Communion ___ Kaci exploration ___ ___ Life review _x__ Prayer ___ Reconciliation ___ Sacrament of Sick _x__ Supportive presence ___ Wedding ___ Other (describe below) Pastoral Comments patient remembers this folder seamer; pt reports having a difficult time with health still and that today she is not feeling well; pt says that a prayer would be sufficient for today
--- NOTE | 2024-02-22 17:17 | CASEMGMT ---
Social Work SW did receive a message from Tena Santoro pt's case consultant([phone]), SW called her back and left a message. SW also added her information to the green sheet. She would like instructions faxed to her at d/c: [phone]. DEBI Kendrick
--- NOTE | 2024-02-22 17:53 | PN.GI_ITS ---
Subjective Subjective Patient is still very lethargic and weak today. She is not eating well. She has been sleeping a lot today. Objective Data Objective Data Vital Signs: Vital Signs Temp Pulse Resp BP Pulse Ox O2 Del Method O2 Flow Rate 97.8 F 61 16 125/66 H 98 Nasal Cannula 2 02/22/24 14:54 02/22/24 14:54 02/22/24 14:54 02/22/24 14:54 02/22/24 14:54 02/22/24 14:54 02/22/24 14:54 Oxygen Flow Rate (L/min) 2 Oxygen Delivery Method Nasal Cannula Weight: 123 lb 0.287 oz Body Mass Index (BMI) 19.8 Intake & Output: Intake and Output for Last 24 Hours 02/20/24 02/21/24 02/22/24 23:59 23:59 23:59 Intake Total 560 / 560 1685 / 1685 925 / 925 Output Total 1800 / 1800 1250 / 1250 770 / 770 Balance -1240 / -1240 435 / 435 155 / 155 Lab / Micro Data 02/22/24 06:45 02/22/24 06:45 Labs: Laboratory Results - last 24 hr 02/22/24 06:45: WBC 7.7, RBC 3.18 L, Hgb 7.2 L, Hct 25.4 L, MCV 79.9 L, MCH 22.6 L, MCHC 28.3 L D, RDW Std Deviation 52.1 H, RDW Coeff of David 18.0 H, Plt Count 213, MPV 10.0, Immature Gran % (Auto) 0.500, Neut % (Auto) 68.8, Lymph % (Auto) 14.2 L, [place] % (Auto) 12.5 H, Eos % (Auto) 3.1, Baso % (Auto) 0.9, Absolute Neuts (auto) 5.3, Absolute Lymphs (auto) 1.09, Nucleated RBC % 0, Sodium 143, Potassium 3.6, Chloride 114 H, Carbon Dioxide 25.0, Anion Gap 4 L, BUN 17, Creatinine 0.96, Estim Creat Clear Calc 48.72, Est GFR (MDRD) Af Amer 74, Est GFR (MDRD) Non-Af 62, BUN/Creatinine Ratio 17.8, Glucose 93, Calcium 8.3 L, Total Bilirubin 0.20, AST 9 L, ALT 8 L, Alkaline Phosphatase 133 H, Total Protein 5.2 L, Albumin 2.2 L, Globulin 3.0, Albumin/Globulin Ratio 0.7 L Micro: Microbiology 02/22/24 09:25 Sputum, Expectorated/Coughed Gram Stain - Final 02/19/24 14:20 Blood Culture (Wb) - Arm Left Blood Culture - Preliminary No growth in 48 hours. 02/19/24 14:10 Blood Culture (Wb) - Arm Left Blood Culture - Preliminary No growth in 48 hours. 02/19/24 17:15 Mucosa - Nose SARS-CoV-2, Influenza & RSV (PCR) - Final 02/19/24 Unknown Urine Catheter - Catheter Legionella Antigen - Final 02/19/24 Unknown Urine Catheter - Catheter Streptococcus pneumoniae Antigen (M - Final 02/19/24 12:18 Stool Stool Occult Blood (CARMEN) - Final Occult Blood Positive Physical Exam Narrative GENERAL: cooperative HEENT: Atraumatic; normocephalic EYES; Anicteric, pallor of the conjunctiva NECK; supple, normal thyroid, RESPIRATORY: Diminished to auscultation CARDIOVASCULAR: Regular S1 S2, GI: soft, normoactive bowel sounds, : No Renal angle tenderness; EXTREMITIES: No edema, no clubbing, MUSCULOSKELETAL: no muscle wasting NEURO: Awake; no lateralizing signs. SKIN: No Rash PSYCH; Flat affect Assessment & Plan Assessment/Plan (1) Symptomatic anemia: PLAN: Plan a 68-year-old lady presented with fatigue and shortness of breath found to be anemic with hemoglobin of 6.6. Chest x-ray demonstrated right lower lobe infiltrate as well as mild vascular congestion She appears to have symptomatic anemia. I suspected that was a upper GI bleed with an acute on chronic GI blood loss. Her MCV is very low there was no sign of recent. GI blood loss anemia seen on her upper endoscopy. With her MCV low she should undergo colonoscopy. I will leave it up to the patient to see if she wants to do it inpatient or outpatient. 02/22/2024-her hemoglobin is 7.2. Agree with iron transfusion and transfused 1 unit packed red blood cells if hemoglobin drops below 7. I would like her to be a little bit more awake and alert prior to her undergoing colonoscopy. I do not think her low hemoglobin is contributing to her hypotension and lethargy. Charges/Coding Visit Charges Inpatient E&M: 90381 Subs Hosp L3
[2024-02-22] MEDS: Gabapentin 400 MG Capsule PO (22:52)
[2024-02-22] MEDS: Acetaminophen 325 MG Tablet 650 MG PO (22:52)
[2024-02-23] VITALS (23 sets, daily range): BP systolic 96–189; BP diastolic 62–114; PULSE 60–143; RESP 16–20; TEMP 35.9–37.1; O2SAT 95–99
[2024-02-23] MEDS: Senna/Docusate Sodium 1 Tablet 2 TABLET PO (00:47)
[2024-02-23] MEDS: hydrALAZINE 20 MG/ML Vial 10 MG IV ×2 (02:42→16:28)
[2024-02-23] MEDS: 0.9% Saline Lock 10 ML Syringe IV ×3 (02:43→21:53)
[2024-02-23] MEDS: oxyCODONE 5 MG Tablet 10 MG PO ×4 (04:03→23:14)
[2024-02-23] MEDS: Baclofen 10 MG Tablet 20 MG PO ×4 (05:35→23:15)
[2024-02-23] MEDS: Gabapentin 400 MG Capsule PO ×3 (05:35→20:13)
[2024-02-23] MEDS: Levothyroxine 50 MCG Tablet PO (05:36)
[2024-02-23] MEDS: Acetaminophen 325 MG Tablet 650 MG PO (06:34)
[2024-02-23] MEDS: Lisinopril 10 MG Tablet PO (06:40)
[2024-02-23 08:09] LABS: Absolute Lymphocyte Count 1.22 X10^3/uL (0.83-4.51); Absolute Neutrophil Count 5.4 X10^3/uL (2.0-7.7); Basophil# 0.05 X10^3/uL; Basophil% 0.6 % (0-1); Eosinophils% 2.5 % (0-5); Hematocrit 33.5 % (37-47); Hemoglobin 10.4 g/dL (12.0-15.0); Lymphocyte # 1.22 X10^3/ul (0.83-4.51); Lymphocyte % 15.5 % (19-41); Mean Corpuscular Hgb 25.1 pg (27.0-32.0); Mean Corpuscular Volume 80.9 fL (81-99); Mean Platelet Vol. 9.4 fl (6.2-12.0); Monocyte% 11.4 % (0-10); NRBC Flagged by Analyzer 0 % (0-5); Neutrophil # 5.43 X10^3/uL (2.7-7.7); Neutrophil % 69.1 % (47-70); Platelet Count 218 K/mm3 (150-450); RBC Distribution Width SD 52.7 fl (35.1-43.9); Red Blood Count 4.14 M/mm3 (4.2-5.4); White Blood Count 7.9 K/mm3 (4.4-11.0)
--- NOTE | 2024-02-23 08:20 | PCM.PN.HOSP ---
Reason for Visit Reason for Visit: Diagnoses Anemia, unspecified (02/19/24) Subjective Subjective Patient was transfused an additional 1 unit PRBC the day prior. Also did receive second infusion with Venofer. Did discuss with patient regarding plans for further diagnostic evaluation her preference would be to stay in the hospital for colonoscopy prior to being discharged Objective Data Objective Data Vital Signs: Vital Signs Temp Pulse Resp BP Pulse Ox O2 Del Method O2 Flow Rate 97.9 F 65 20 H 179/84 H 98 Nasal Cannula 2 02/23/24 05:25 02/23/24 06:42 02/23/24 05:25 02/23/24 06:42 02/23/24 05:25 02/23/24 05:25 02/23/24 05:25 Oxygen Flow Rate (L/min) 2 Oxygen Delivery Method Nasal Cannula Weight: 55.8 kg Body Mass Index (BMI) 19.8 Intake & Output: Intake and Output for Last 24 Hours 02/21/24 02/22/24 02/23/24 23:59 23:59 23:59 Intake Total 1685 / 1685 1275 / 1275 402 / 402 Output Total 1250 / 1250 1070 / 1070 550 / 550 Balance 435 / 435 205 / 205 -148 / -148 Lab / Micro Data 02/23/24 06:25 02/23/24 06:25 Labs: Laboratory Results - last 24 hr 02/22/24 20:40: Blood Type O POSITIVE, Antibody Screen NEGATIVE, Crossmatch See Detail Micro: Microbiology 02/22/24 09:25 Sputum, Expectorated/Coughed Gram Stain - Final 02/19/24 14:20 Blood Culture (Wb) - Arm Left Blood Culture - Preliminary No growth in 48 hours. 02/19/24 14:10 Blood Culture (Wb) - Arm Left Blood Culture - Preliminary No growth in 48 hours. 02/19/24 17:15 Mucosa - Nose SARS-CoV-2, Influenza & RSV (PCR) - Final 02/19/24 Unknown Urine Catheter - Catheter Legionella Antigen - Final 02/19/24 Unknown Urine Catheter - Catheter Streptococcus pneumoniae Antigen (M - Final 02/19/24 12:18 Stool Stool Occult Blood (CARMEN) - Final Occult Blood Positive Physical Exam Narrative GENERAL: cooperative HEENT: Atraumatic; normocephalic EYES; Anicteric, pallor of the conjunctiva NECK; supple, normal thyroid, RESPIRATORY: Diminished to auscultation CARDIOVASCULAR: Regular S1 S2, GI: soft, normoactive bowel sounds, : No Renal angle tenderness; EXTREMITIES: No edema, no clubbing, MUSCULOSKELETAL: no muscle wasting NEURO: Awake; no lateralizing signs. SKIN: No Rash PSYCH; Flat affect Assessment & Plan Assessment/Plan (1) Symptomatic anemia: PLAN: Plan Patient is a 68-year-old lady presented with fatigue found to be anemic with hemoglobin of 6.6. Chest x-ray demonstrated right lower lobe infiltrate as well as mild vascular congestion 1. Symptomatic anemia ? Suspected to be secondary to chronic GI bleed. Patient is on apixaban for systemic anticoagulation for A-fib. Patient was guaiac positive. An order was given for patient to be transfused with 1 unit PRBC. Iron studies undertaken prior to patient being transfused ? 02/20/2024; Transfused 1 unit PRBC hemoglobin up to 7.7. Seen in consultation by GI plan is for patient to undergo upper endoscopy and if negative colonoscopy. ? 02/21/2024 patient underwent EGD on 02/20/2024 results and recommendations as below Impressions : - No gross lesions in the entire esophagus. - No gross lesions in the entire stomach. 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 Treated with argon plasma coagulation (APC). - Chronic duodenitis. Biopsied. Recommendations : - [facility] to [facility] for [facility] care. - Resume regular diet. - Continue present medications. - Await pathology results. ?Patient hemoglobin still low patient started on parenteral iron ? 02/22/2024 hemoglobin down to 7.2. Patient was seen the day prior by Dr. Gonzalez with GI patient given the option of either having inpatient versus outpatient colonoscopy. Additional Venofer given. ? 02/23/2024 patient was transfused with 1 unit PRBC the day prior. Hemoglobin up to 10.4. Patient's preference is to undergo colonoscopy in the hospital prior to discharge. 2. Suspected GI bleed ? Patient is on apixaban held consult placed to Dr. Gonzalez with GI for possible endoscopic evaluation ? Patient underwent EGD result as above 3. Pneumonia - Suspected to be secondary to streptococcal pneumonia, Blood and sputum cultures sent. Patient placed on Rocephin and Zithromax and placed on oxygen titrated to keep Pulse Ox greater than 90 4. Paroxysmal A-fib ? Rate controlled on systemic anticoagulation with apixaban held given patient anemia 5. Suspected congestive heart failure?1 with preserved ejection fraction ? Possibly precipitated by patient being anemic patient was placed on diuretic therapy 2D echo ordered 6. Hypertension - Blood pressure controlled, home medications continued with dose adjustment as needed 7. Multiple sclerosis ? Per history patient is on baclofen for muscle relaxation 8. Hypothyroidism ? Patient is on levothyroxine did continue with home dose 9. Peripheral arterial disease ? With history of bilateral carotid artery stenosis, peripheral vascular occlusive disease. Patient was on systemic anticoagulation with apixaban held given about reasons 10. DVT prophylaxis ? Patient is on apixaban held 11. Acute toxic encephalopathy ? Patient is on multiple psychotropic medications including gabapentin dose adjusted given her significant lethargy Time spent in the patient's overall evaluation,decision-making process, review of diagnostic data, adjustment of management, discussion with other providers, nursing nursing and ancillary staff involved in patient's care documentation, 38 Minutes Charges/Coding Visit Charges Inpatient E&M: 12019 Subs Hosp L2
[2024-02-23 08:40] LABS: Anion Gap 5 (5-15); BUN 20 mg/dL (7-18); BUN/Creat Ratio 21.8 RATIO (10-20); Calcium,Total 8.6 mg/dL (8.5-10.1); Chloride 110 mmol/L (98-107); Creatinine, Serum 0.92 mg/dL (0.55-1.02); EST Glomerular Filtration Rate 64 mL/min (>60); Est Glom Filt Rate - Afr Amer 78 mL/min (>60); Estimated Creatinine Clearance 50.84 ml/min; Glucose 83 mg/dL (74-106); Phosphorus 2.6 mg/dL (2.5-4.9); Potassium 3.3 mmol/L (3.5-5.1); Sodium Level 140 mmol/L (136-145)
[2024-02-23] MEDS: Cholecalciferol (Vit D3) 125 MCG CAPSULE (5,000 UNITS) PO (09:01)
[2024-02-23] MEDS: Pantoprazole Sodium 40 MG in 0.9% Normal Saline (100mL MB+) 100 ML 330 MG IV ×2 (09:02→20:13)
[2024-02-23] MEDS: 0.9% Normal Saline (250mL Bag) 250 ML 15 ML IV (09:03)
[2024-02-23] MEDS: Ceftriaxone 2 GM in 0.9% Normal Saline (50mL MB+) 50 ML IV (10:00)
[2024-02-23] MEDS: Azithromycin 500 MG in Dextrose 5%-Water (250mL Bag) 250 ML 250 MG IV (11:19)
--- NOTE | 2024-02-23 16:00 | CASEMGMT ---
Social Work As per admitting RN, pt does not have LW/POA and declined further information. DEBI Kendrick
--- NOTE | 2024-02-23 16:19 | EX.PCM.PN.GI ---
Subjective Subjective Patient does not have any complaints at this time. She is willing to undergo colonoscopy to figure out her severe iron deficiency anemia. Objective Data Objective Data Vital Signs: Vital Signs Temp Pulse Resp BP Pulse Ox O2 Del Method O2 Flow Rate 97.2 F L 69 17 177/89 H 97 Nasal Cannula 2 02/23/24 11:25 02/23/24 11:25 02/23/24 11:25 02/23/24 11:25 02/23/24 11:25 02/23/24 14:00 02/23/24 14:00 Oxygen Flow Rate (L/min) 2 Oxygen Delivery Method Nasal Cannula Weight: 123 lb 0.287 oz Body Mass Index (BMI) 19.8 Intake & Output: Intake and Output for Last 24 Hours 02/21/24 02/22/24 02/23/24 23:59 23:59 23:59 Intake Total 1685 / 1685 1275 / 1275 817 / 817 Output Total 1250 / 1250 1070 / 1070 550 / 550 Balance 435 / 435 205 / 205 267 / 267 Lab / Micro Data 02/23/24 06:25 02/23/24 06:25 Labs: Laboratory Results - last 24 hr 02/22/24 20:40: Blood Type O POSITIVE, Antibody Screen NEGATIVE, Crossmatch See Detail 02/23/24 06:25: WBC 7.9, RBC 4.14 L, Hgb 10.4 L, Hct 33.5 L, MCV 80.9 L, MCH 25.1 L, MCHC 31.0 L D, RDW Std Deviation 52.7 H, RDW Coeff of David 18.0 H, Plt Count 218, MPV 9.4, Immature Gran % (Auto) 0.900, Neut % (Auto) 69.1, Lymph % (Auto) 15.5 L, [place] % (Auto) 11.4 H, Eos % (Auto) 2.5, Baso % (Auto) 0.6, Absolute Neuts (auto) 5.4, Absolute Lymphs (auto) 1.22, Nucleated RBC % 0, Sodium 140, Potassium 3.3 L, Chloride 110 H, Carbon Dioxide 25.0, Anion Gap 5, BUN 20 H, Creatinine 0.92, Estim Creat Clear Calc 50.84, Est GFR (MDRD) Af Amer 78, Est GFR (MDRD) Non-Af 64, BUN/Creatinine Ratio 21.8 H, Glucose 83, Calcium 8.6, Phosphorus 2.6, Magnesium 2.0 Micro: Microbiology 02/22/24 09:25 Sputum, Expectorated/Coughed Gram Stain - Final 02/22/24 09:25 Sputum, Expectorated/Coughed Respiratory Culture - Preliminary Appears to be normal respiratory emily. Further studies to follow. 02/19/24 14:20 Blood Culture (Wb) - Arm Left Blood Culture - Preliminary No growth in 48 hours. 02/19/24 14:10 Blood Culture (Wb) - Arm Left Blood Culture - Preliminary No growth in 48 hours. 02/19/24 17:15 Mucosa - Nose SARS-CoV-2, Influenza & RSV (PCR) - Final 02/19/24 Unknown Urine Catheter - Catheter Legionella Antigen - Final 02/19/24 Unknown Urine Catheter - Catheter Streptococcus pneumoniae Antigen (M - Final 02/19/24 12:18 Stool Stool Occult Blood (CARMEN) - Final Occult Blood Positive Physical Exam Narrative GENERAL: cooperative HEENT: Atraumatic; normocephalic EYES; Anicteric, pallor of the conjunctiva NECK; supple, normal thyroid, RESPIRATORY: Diminished to auscultation CARDIOVASCULAR: Regular S1 S2, GI: soft, normoactive bowel sounds, : No Renal angle tenderness; EXTREMITIES: No edema, no clubbing, MUSCULOSKELETAL: no muscle wasting NEURO: Awake; no lateralizing signs. SKIN: No Rash PSYCH; Flat affect Assessment & Plan Assessment/Plan (1) Symptomatic anemia: PLAN: Plan a 68-year-old lady presented with fatigue and shortness of breath found to be anemic with hemoglobin of 6.6. Chest x-ray demonstrated right lower lobe infiltrate as well as mild vascular congestion She appears to have symptomatic anemia. I suspected that was a upper GI bleed with an acute on chronic GI blood loss. Her MCV is very low there was no sign of recent. GI blood loss anemia seen on her upper endoscopy. With her MCV low she should undergo colonoscopy. I will leave it up to the patient to see if she wants to do it inpatient or outpatient. 02/22/2024-her hemoglobin is 7.2. Agree with iron transfusion and transfused 1 unit packed red blood cells if hemoglobin drops below 7. I would like her to be a little bit more awake and alert prior to her undergoing colonoscopy. I do not think her low hemoglobin is contributing to her hypotension and lethargy. 02/23/2024-she responded very well to blood transfusion and iron transfusion that I gave her yesterday. We will prep her tomorrow for colonoscopy on Sunday. Charges/Coding Visit Charges Inpatient E&M: 43647 Subs Hosp L3
--- NOTE | 2024-02-23 17:26 | EKG12_ITS ---
Test Reason : Blood Pressure : / mmHG Vent. Rate : 122 BPM Atrial Rate : 312 BPM P-R Int : 000 ms QRS Dur : 084 ms QT Int : 348 ms P-R-T Axes : 000 023 042 degrees QTc Int : 495 ms Atrial flutter with variable A-V conduction ST & T wave abnormality, consider lateral ischemia Abnormal ECG Confirmed by Roberto Smiley ([id number]), writer editor WALLY MILLER ([id number]) on 02/25/2024 1:15:51 PM Referred By: LUZ MARINA Confirmed By:Roberto Smiley
[2024-02-23] MEDS: Ondansetron 4 MG/2 ML Vial IV (17:42)
[2024-02-23] MEDS: Nitroglycerin (INPATIENT USE) 0.4 MG TAB.SUBL SL ×2 (17:43→17:56)
[2024-02-23] MEDS: dilTIAZem 25 MG/5 ML Vial 20 MG IV BOLUS (18:03)
--- NOTE | 2024-02-23 18:35 | CT_ITS ---
STUDY: CTA Chest WO/W Contrast Injection 02/23/2024 7:42 PM REASON FOR EXAM: Female, 68 years old. chest pain TECHNIQUE: The examination was performed with the intravenous administration of IV 75mL Isovue-370 contrast material. Post-processing of the angiographic images was performed, with axial imaging and 3D reconstruction. MIPS images were obtained. Individualized dose optimization techniques were used for this CT. COMPARISON: 01.11.24. FINDINGS: There are degenerative changes of the shoulders. There is no pneumothorax. Moderate bilateral pleural effusions. Interlobular septal thickening. Patchy bilateral groundglass infiltrates. Centrilobular emphysema. There are calcifications of the coronary arteries. Normal mediastinum. Normal hilar regions. Normal pulmonary arteries. There is atherosclerotic calcification of the aortic arch with tortuosity and elongation of the aortic arch and descending thoracic aorta. There are multi-level degenerative changes of the thoracic spine. There are no acute findings of the upper abdomen. CT/CTA Chest W/WO Contrast IMPRESSION: No demonstrated pulmonary embolism or arterial dissection. There are bilateral pleural effusions. There is bilateral pneumonia. Electronically Signed: Rafael Daniel MD at 19:44 EDT ,
[2024-02-23 18:40] LABS: Troponin-I HS 28 pg/mL (3.0-54.0)
[2024-02-23 20:42] LABS: Troponin-I HS 28 pg/mL (3.0-54.0)
[2024-02-23] MEDS: Metoprolol Tartrate 5 MG/5 ML Vial IV (21:53)
[2024-02-24] VITALS (12 sets, daily range): BP systolic 111–148; BP diastolic 60–82; PULSE 58–96; RESP 12–18; TEMP 36.2–36.6; O2SAT 85–100; BMI 19.8
--- NOTE | 2024-02-24 00:39 | EKG12_ITS ---
Test Reason : CONVERTED TO NSR Blood Pressure : / mmHG Vent. Rate : 066 BPM Atrial Rate : 066 BPM P-R Int : 160 ms QRS Dur : 082 ms QT Int : 470 ms P-R-T Axes : 046 024 045 degrees QTc Int : 492 ms Normal sinus rhythm Left atrial enlargement [place] Prolonged QT Abnormal ECG Confirmed by Roberto Smiley ([id number]), editorial specialist WALLY MILLER ([id number]) on 02/25/2024 1:14:44 PM Referred By: Confirmed By:Roberto Smiley
[2024-02-24 00:47] LABS: Troponin-I HS 72 pg/mL (3.0-54.0)
[2024-02-24] MEDS: guaiFENesin/D-Methorphan TAB.SR.12H 1 TABLET PO ×2 (04:21→20:20)
[2024-02-24] MEDS: oxyCODONE 5 MG Tablet 10 MG PO ×4 (04:24→22:25)
[2024-02-24] MEDS: Levothyroxine 50 MCG Tablet PO (04:59)
[2024-02-24] MEDS: Baclofen 10 MG Tablet 20 MG PO ×4 (04:59→22:26)
[2024-02-24] MEDS: Gabapentin 400 MG Capsule PO ×3 (04:59→20:19)
[2024-02-24 07:01] LABS: Absolute Lymphocyte Count 0.82 X10^3/uL (0.83-4.51); Absolute Neutrophil Count 7.9 X10^3/uL (2.0-7.7); Basophil# 0.04 X10^3/uL; Basophil% 0.4 % (0-1); Eosinophil# 0.15 X10^3/uL; Eosinophils% 1.5 % (0-5); Hematocrit 33.1 % (37-47); Hemoglobin 9.8 g/dL (12.0-15.0); Lymphocyte # 0.82 X10^3/ul (0.83-4.51); Lymphocyte % 8.2 % (19-41); Mean Corp Hgb Conc 29.6 g/dL (32-36); Mean Corpuscular Hgb 24.5 pg (27.0-32.0); Mean Corpuscular Volume 82.8 fL (81-99); Mean Platelet Vol. 9.5 fl (6.2-12.0); Monocyte# 1.02 X10^3/uL; Monocyte% 10.2 % (0-10); NRBC Flagged by Analyzer 0 % (0-5); Neutrophil # 7.94 X10^3/uL (2.7-7.7); Platelet Count 200 K/mm3 (150-450); RBC Distribution Width CV 19.3 % (11.6-14.6); RBC Distribution Width SD 56.5 fl (35.1-43.9)
--- NOTE | 2024-02-24 08:06 | PCM.PN.HOSP ---
Reason for Visit Reason for Visit: Diagnoses Anemia, unspecified (02/19/24) Subjective Subjective Patient did develop significant chest discomfort the day prior. Troponin obtained came back negative EKG demonstrated A-fib with RVR. Subsequently ordered CTA of the chest which did not show No demonstrated pulmonary embolism or arterial dissection. There are bilateral pleural effusions. There is bilateral pneumonia. Objective Data Objective Data Vital Signs: Vital Signs Temp Pulse Resp BP Pulse Ox O2 Del Method O2 Flow Rate 97.1 F L 60 18 112/60 97 Nasal Cannula 2 02/24/24 02:30 02/24/24 02:30 02/24/24 02:30 02/24/24 02:30 02/24/24 07:32 02/24/24 07:32 02/24/24 07:32 Oxygen Flow Rate (L/min) 2 Oxygen Delivery Method Nasal Cannula Weight: 55.8 kg Body Mass Index (BMI) 19.8 Intake & Output: Intake and Output for Last 24 Hours 02/22/24 02/23/24 02/24/24 23:59 23:59 23:59 Intake Total 1275 / 1275 1347 / 1347 250 / 250 Output Total 1070 / 1070 550 / 550 Balance 205 / 205 797 / 797 250 / 250 Lab / Micro Data 02/24/24 06:20 02/24/24 06:25 Labs: Laboratory Results - last 24 hr 02/23/24 00:15: Troponin I High Sens 72 H 02/23/24 06:25: WBC 7.9, RBC 4.14 L, Hgb 10.4 L, Hct 33.5 L, MCV 80.9 L, MCH 25.1 L, MCHC 31.0 L D, RDW Std Deviation 52.7 H, RDW Coeff of David 18.0 H, Plt Count 218, MPV 9.4, Immature Gran % (Auto) 0.900, Neut % (Auto) 69.1, Lymph % (Auto) 15.5 L, Burt % (Auto) 11.4 H, Eos % (Auto) 2.5, Baso % (Auto) 0.6, Absolute Neuts (auto) 5.4, Absolute Lymphs (auto) 1.22, Nucleated RBC % 0, Sodium 140, Potassium 3.3 L, Chloride 110 H, Carbon Dioxide 25.0, Anion Gap 5, BUN 20 H, Creatinine 0.92, Estim Creat Clear Calc 50.84, Est GFR (MDRD) Af Amer 78, Est GFR (MDRD) Non-Af 64, BUN/Creatinine Ratio 21.8 H, Glucose 83, Calcium 8.6, Phosphorus 2.6, Magnesium 2.0 02/23/24 18:05: Troponin I High Sens 02/23/24 19:50: Troponin I High Sens 02/24/24 06:20: WBC 10.0, RBC 4.00 L, Hgb 9.8 L, Hct 33.1 L, MCV 82.8, MCH 24.5 L, MCHC 29.6 L, RDW Std Deviation 56.5 H, RDW Coeff of David 19.3 H, Plt Count 200, MPV 9.5, Immature Gran % (Auto) 0.700, Neut % (Auto) 79.0 H, Lymph % (Auto) 8.2 L, Burt % (Auto) 10.2 H, Eos % (Auto) 1.5, Baso % (Auto) 0.4, Absolute Neuts (auto) 7.9 H, Absolute Lymphs (auto) 0.82 L, Nucleated RBC % 0 Micro: Microbiology 02/22/24 09:25 Sputum, Expectorated/Coughed Gram Stain - Final 02/22/24 09:25 Sputum, Expectorated/Coughed Respiratory Culture - Preliminary Appears to be normal respiratory emily. Further studies to follow. 02/19/24 14:20 Blood Culture (Wb) - Arm Left Blood Culture - Preliminary No growth in 48 hours. 02/19/24 14:10 Blood Culture (Wb) - Arm Left Blood Culture - Preliminary No growth in 48 hours. 02/19/24 17:15 Mucosa - Nose SARS-CoV-2, Influenza & RSV (PCR) - Final 02/19/24 Unknown Urine Catheter - Catheter Legionella Antigen - Final 02/19/24 Unknown Urine Catheter - Catheter Streptococcus pneumoniae Antigen (M - Final 02/19/24 12:18 Stool Stool Occult Blood (CARMEN) - Final Occult Blood Positive Radiography Diagnostic Testing: Radiology Impression Chest CTA 02/23/24 18:35 IMPRESSION: No demonstrated pulmonary embolism or arterial dissection. There are bilateral pleural effusions. There is bilateral pneumonia. Electronically Signed: Rafael Daniel MD at 19:44 EDT Reading Location ID and State: [facility] / [place] , Service support , Physical Exam Narrative GENERAL: cooperative HEENT: Atraumatic; normocephalic EYES; Anicteric, pallor of the conjunctiva NECK; supple, normal thyroid, RESPIRATORY: Diminished to auscultation CARDIOVASCULAR: Regular S1 S2, GI: soft, normoactive bowel sounds, : No Renal angle tenderness; EXTREMITIES: No edema, no clubbing, MUSCULOSKELETAL: no muscle wasting NEURO: Awake; no lateralizing signs. SKIN: No Rash PSYCH; Flat affect Assessment & Plan Assessment/Plan (1) Symptomatic anemia: PLAN: Plan Patient is a 68-year-old lady presented with fatigue found to be anemic with hemoglobin of 6.6. Chest x-ray demonstrated right lower lobe infiltrate as well as mild vascular congestion 1. Symptomatic anemia ? Suspected to be secondary to chronic GI bleed. Patient is on apixaban for systemic anticoagulation for A-fib. Patient was guaiac positive. An order was given for patient to be transfused with 1 unit PRBC. Iron studies undertaken prior to patient being transfused ? 02/20/2024; Transfused 1 unit PRBC hemoglobin up to 7.7. Seen in consultation by GI plan is for patient to undergo upper endoscopy and if negative colonoscopy. ? 02/21/2024 patient underwent EGD on 02/20/2024 results and recommendations as below Impressions : - No gross lesions in the entire esophagus. - No gross lesions in the entire stomach. 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 Treated with argon plasma coagulation (APC). - Chronic duodenitis. Biopsied. Recommendations : - [facility] to [facility]. - Resume regular diet. - Continue present medications. - Await pathology results. ?Patient hemoglobin still low patient started on parenteral iron ? 02/22/2024 hemoglobin down to 7.2. Patient was seen the day prior by Dr. Gonzalez with GI patient given the option of either having inpatient versus outpatient colonoscopy. Additional Venofer given. ? 02/23/2024 patient was transfused with 1 unit PRBC the day prior. Hemoglobin up to 10.4. Patient's preference is to undergo colonoscopy in the hospital prior to discharge. ? 02/24/2024 patient scheduled to undergo colonoscopy in a.m. 2. Suspected GI bleed ? Patient is on apixaban held consult placed to Dr. Gonzalez with GI for possible endoscopic evaluation ? Patient underwent EGD result as above 3. Pneumonia - Suspected to be secondary to streptococcal pneumonia, Blood and sputum cultures sent. Patient placed on Rocephin and Zithromax and placed on oxygen titrated to keep Pulse Ox greater than 90 -02/24/2024; patient did develop significant chest discomfort the day prior. Troponin obtained came back negative EKG demonstrated A-fib with RVR. Subsequently ordered CTA of the chest which did not show No demonstrated pulmonary embolism or arterial dissection. There are bilateral pleural effusions. There is bilateral pneumonia. Patient already on antibiotic therapy for pneumonia 4. Paroxysmal A-fib ? Rate controlled on systemic anticoagulation with apixaban held given patient anemia 5. Suspected congestive heart failure?1 with preserved ejection fraction ? Possibly precipitated by patient being anemic patient was placed on diuretic therapy 2D echo ordered 6. Hypertension - Blood pressure controlled, home medications continued with dose adjustment as needed 7. Multiple sclerosis ? Per history patient is on baclofen for muscle relaxation 8. Hypothyroidism ? Patient is on levothyroxine did continue with home dose 9. Peripheral arterial disease ? With history of bilateral carotid artery stenosis, peripheral vascular occlusive disease. Patient was on systemic anticoagulation with apixaban held given about reasons 10. DVT prophylaxis ? Patient is on apixaban held 11. Acute toxic encephalopathy ? Patient is on multiple psychotropic medications including gabapentin dose adjusted given her significant lethargy Time spent in the patient's overall evaluation,decision-making process, review of diagnostic data, adjustment of management, discussion with other providers, nursing nursing and ancillary staff involved in patient's care documentation, 35 Minutes Charges/Coding Visit Charges Inpatient E&M: 62678 Subs Hosp L2
[2024-02-24 08:18] LABS: Anion Gap 5 (5-15); BUN 18 mg/dL (7-18); BUN/Creat Ratio 21.9 RATIO (10-20); Calcium,Total 8.4 mg/dL (8.5-10.1); Chloride 109 mmol/L (98-107); Creatinine, Serum 0.82 mg/dL (0.55-1.02); EST Glomerular Filtration Rate 73 mL/min (>60); Est Glom Filt Rate - Afr Amer 89 mL/min (>60); Estimated Creatinine Clearance 57.04 ml/min; Glucose 94 mg/dL (74-106); Potassium 3.5 mmol/L (3.5-5.1); Sodium Level 139 mmol/L (136-145)
[2024-02-24] MEDS: Lisinopril 10 MG Tablet PO (09:32)
[2024-02-24] MEDS: Cholecalciferol (Vit D3) 125 MCG CAPSULE (5,000 UNITS) PO (09:33)
[2024-02-24] MEDS: Pantoprazole Sodium 40 MG in 0.9% Normal Saline (100mL MB+) 100 ML 330 MG IV ×2 (09:43→20:19)
[2024-02-24] MEDS: Potassium Chloride Oral Tablet 20 MEQ PO ×2 (09:44→17:42)
[2024-02-24] MEDS: Ceftriaxone 2 GM in 0.9% Normal Saline (50mL MB+) 50 ML IV (10:16)
[2024-02-24] MEDS: Azithromycin 500 MG in Dextrose 5%-Water (250mL Bag) 250 ML 250 MG IV (12:07)
[2024-02-24] MEDS: Bisacodyl 5 MG Tablet 20 MG PO (13:33)
[2024-02-24] MEDS: Polyethylene Glycol 3350 BOWEL PREP PO (18:04)
[2024-02-24] MEDS: 0.9% Saline Lock 10 ML Syringe IV (20:19)
[2024-02-25] VITALS (11 sets, daily range): BP systolic 90–173; BP diastolic 48–109; PULSE 58–67; RESP 14–18; TEMP 36.4–36.8; O2SAT 87–98
[2024-02-25] MEDS: oxyCODONE 5 MG Tablet 10 MG PO ×3 (02:36→13:34)
[2024-02-25 04:19] LABS: Absolute Lymphocyte Count 1.08 X10^3/uL (0.83-4.51); Absolute Neutrophil Count 4.6 X10^3/uL (2.0-7.7); Basophil# 0.03 X10^3/uL; Basophil% 0.5 % (0-1); Eosinophil# 0.19 X10^3/uL; Eosinophils% 2.9 % (0-5); Hematocrit 34.3 % (37-47); Hemoglobin 10.3 g/dL (12.0-15.0); Lymphocyte # 1.08 X10^3/ul (0.83-4.51); Lymphocyte % 16.3 % (19-41); Mean Corpuscular Hgb 25.1 pg (27.0-32.0); Mean Corpuscular Volume 83.5 fL (81-99); Mean Platelet Vol. 9.6 fl (6.2-12.0); Monocyte# 0.75 X10^3/uL; Monocyte% 11.3 % (0-10); NRBC Flagged by Analyzer 0 % (0-5); Neutrophil # 4.55 X10^3/uL (2.7-7.7); Neutrophil % 68.4 % (47-70); Platelet Count 205 K/mm3 (150-450); RBC Distribution Width CV 19.6 % (11.6-14.6); RBC Distribution Width SD 57.3 fl (35.1-43.9); Red Blood Count 4.11 M/mm3 (4.2-5.4); White Blood Count 6.6 K/mm3 (4.4-11.0)
[2024-02-25 04:28] LABS: International Normalized Ratio 1.1; Prothrombin Time (Protime)PT. 13.8 SECONDS (11.7-14.9)
[2024-02-25 04:29] LABS: Partial Thromboplast Time 33.2 Seconds (24.1-36.2)
[2024-02-25 04:50] LABS: Anion Gap 5 (5-15); BUN 12 mg/dL (7-18); BUN/Creat Ratio 14.1 RATIO (10-20); Calcium,Total 8.5 mg/dL (8.5-10.1); Chloride 110 mmol/L (98-107); Creatinine, Serum 0.85 mg/dL (0.55-1.02); EST Glomerular Filtration Rate 70 mL/min (>60); Est Glom Filt Rate - Afr Amer 85 mL/min (>60); Estimated Creatinine Clearance 55.02 ml/min; Glucose 85 mg/dL (74-106); Potassium 3.8 mmol/L (3.5-5.1); Sodium Level 141 mmol/L (136-145)
[2024-02-25 05:12] LABS: Thyroid Stim Hormone (TSH) 3.07 uIU/mL (0.358-3.74)
[2024-02-25] MEDS: hydrALAZINE 20 MG/ML Vial 10 MG IV (08:35)
[2024-02-25] MEDS: Pantoprazole Sodium 40 MG in 0.9% Normal Saline (100mL MB+) 100 ML 330 MG IV (09:35)
[2024-02-25] MEDS: Ceftriaxone 2 GM in 0.9% Normal Saline (50mL MB+) 50 ML IV (10:06)
--- NOTE | 2024-02-25 12:00 | COLBX_PTH ---
PATIENT: ADY WALLER LOC: [facility] U#:[id number] AGE/SX: 68/F ROOM: [facility] RE02/19/[address]: Dr. Eva Mortensen DO : 1955 BED: 1 DIS: 02/25/2024 SPEC #: [id number] RECD: 02/25/24 17:07 STATUS: MARY WILSON #: [id number] LIZBET: 02/25/24 12:[address]: Kevin Gonzalez DEPT: SURGICAL PATHOLOGY RECD BY: Mirta Scales ENTERED: 02/26/24 12:08 SP TYPE: COLON BX OTHR DR: MD Dr. Daron Hurt MD Dr. Kathryn Lee, Tissues: A - COLON BIOPSY B - Rectum, NOS Procedures: Surgery Specimen Level IV Comments: @ Ordering doctor for SUIV edited from to @ silvia MCKENZIE at 02/27/24855 @ Submitting doctor edited from to @ silvia MCKENZIE at 02/27/24855 HEADER OPERATION: Colonoscopy, biopsy, polypectomy PRE-OP DIAGNOSIS: Symptomatic anemia TISSUE SUBMITTED: A- Splenic flexure polyp biopsy, B- Rectal polyp MICROSCOPIC DIAGNOSIS A. Splenic flexure polyp, biopsy: Fragments of tubular adenoma. B. Rectal polyp, polypectomy: Fragments of tubular adenoma. / 02/27/24 MICROSCOPIC DESCRIPTION Slides are reviewed. GROSS DESCRIPTION A. Received in fixative is one container labeled with the patient's name and designated Splenic flexure polyp biopsy. The specimen consists of multiple irregular fragments of light rubalcava soft tissue that in aggregate measure 1.5 x 0.5 x 0.1 cm. The specimen is totally submitted in one cassette. B. Received in fixative is one container labeled with the patient's name and designated Rectal polyp. The specimen consists of a rubalcava-pink polyp measuring 0.6 x 0.5 x 0.3cm. Also present in the container are multiple fragments of rubalcava soft tissue measuring in aggregate 1.5 x 0.2 x 0.1cm. The entire specimen is submitted in one cassette. / 02/26/24 TC:1 CPT:54688r1
--- NOTE | 2024-02-25 12:49 | OP.CCLET_ITS ---
02/25/2024 Daron Benton [address] [place] [address] Re : Colonoscopy procedure for Angélica Yo Dear Dr. Benton This procedure was performed on Sunday, February 25, 2024. My impressions and recommendations are as follows: Impressions : - Non-bleeding external and internal hemorrhoids. - One 18 mm polyp in the rectum, removed with a hot snare. Resected and retrieved. - Diverticulosis in the recto-sigmoid colon. - Three 1 to 2 mm polyps at the splenic flexure, removed with a cold snare. Resected and retrieved. - The examination was otherwise normal on direct and retroflexion views. Recommendations : - Return patient to [facility] for ongoing care. - Resume previous diet. - Continue present medications. - Await pathology results. - Repeat colonoscopy in 3 years for surveillance. My findings are described in the full procedure note, which is enclosed. If I can be of further assistance, please feel free to contact me at . Sincerely, Kevin Gonzalez, 02/25/2024 12:48:29 PM This report has been signed electronically.
--- NOTE | 2024-02-25 12:49 | OP.COLON_ITS ---
Patient Name: Angélica Yo Procedure Date: 02/25/2024 12:05 PM Date of : 1955 Age: 68 Procedure: Colonoscopy Indications: Iron deficiency anemia Providers: Kevin Gonzalez DO Medicines: Monitored Anesthesia Care Patient Profile: This is a 68 year old female. Refer to note in patient chart for documentation of history and physical. Last Colonoscopy: date unknown. Unable to locate last colonoscopy report. Complications: No immediate complications. Procedure: Pre-Anesthesia Assessment: - Prior to the procedure, a History and Physical was performed, and patient medications and allergies were reviewed. The patient is competent. The risks and benefits of the procedure and the sedation options and risks were discussed with the patient. All questions were answered and informed consent was obtained. Patient identification and proposed procedure were verified by the physician. Mental Status Examination: normal. Prophylactic Antibiotics: The patient does not require prophylactic antibiotics. Prior Anticoagulants: The patient has taken no anticoagulant or antiplatelet agents. After reviewing the risks and benefits, the patient was deemed in satisfactory condition to undergo the procedure. The anesthesia plan was to use monitored anesthesia care (MAC). Immediately prior to administration of medications, the patient was re-assessed for adequacy to receive sedatives. The heart rate, respiratory rate, oxygen saturations, blood pressure, adequacy of pulmonary ventilation, and response to care were monitored throughout the procedure. The physical status of the patient was re-assessed after the procedure. After I obtained informed consent, the scope was passed under direct vision. Throughout the procedure, the patient's blood pressure, pulse, and oxygen saturations were monitored continuously. The Colonoscope was introduced through the anus and advanced to the cecum, identified by appendiceal orifice and ileocecal valve. The colonoscopy was performed without difficulty. The patient tolerated the procedure well. The quality of the bowel preparation was adequate. The ileocecal valve, appendiceal orifice, and rectum were photographed. Scope In: 12:17:12 PM Scope Withdrawal Time 0 hours 15 minutes 34 seconds Scope Out: 12:38:53 PM Total Procedure Duration Time 0 hours 21 minutes 41 seconds Findings: The perianal and digital rectal examinations were normal. Non-bleeding external and internal hemorrhoids were found during retroflexion. The hemorrhoids were Grade III (internal hemorrhoids that prolapse but require manual reduction). An 18 mm polyp was found in the rectum. The polyp was sessile. The polyp was removed with a hot snare. Resection and retrieval were complete. Verification of patient identification for the specimen was done. Estimated blood loss was minimal. A few small-mouthed diverticula were found in the recto-sigmoid colon. Three sessile polyps were found in the splenic flexure. The polyps were 1 to 2 mm in size. These polyps were removed with a cold snare. Resection and retrieval were complete. Verification of patient identification for the specimen was done. Estimated blood loss was minimal. The exam was otherwise without abnormality on direct and retroflexion views. A 5 mm polyp was found in the splenic flexure. The polyp was sessile. Coagulation for hemostasis using heater probe was successful. Estimated blood loss was minimal. Impression: - Non-bleeding external and internal hemorrhoids. - One 18 mm polyp in the rectum, removed with a hot snare. Resected and retrieved. - Diverticulosis in the recto-sigmoid colon. - Three 1 to 2 mm polyps at the splenic flexure, removed with a cold snare. Resected and retrieved. - The examination was otherwise normal on direct and retroflexion views. Recommendation: - Return patient to [facility] for ongoing care. - Resume previous diet. - Continue present medications. - Await pathology results. - Repeat colonoscopy in 3 years for surveillance. Procedure Code(s): --- Professional --- 87357, 59, Colonoscopy, flexible; with control of bleeding, any method 34128, Colonoscopy, flexible; with removal of tumor(s), polyp(s), or other lesion(s) by snare technique CPT copyright 2021 [employer]. All rights reserved. The codes documented in this report are preliminary and upon tool liaison review may be revised to meet current compliance requirements. Kevin Gonzalez DO 02/25/2024 12:48:29 PM This report has been signed electronically. Number of Addenda: 0 Note Initiated On: 02/25/2024 12:05 PM
[2024-02-25] MEDS: Azithromycin 500 MG in Dextrose 5%-Water (250mL Bag) 250 ML 250 MG IV (13:34)
[2024-02-25] MEDS: Baclofen 10 MG Tablet 20 MG PO (13:34)
[2024-02-25 14:06] LABS: Hemoglobin 10.7 g/dL (12.0-15.0)
--- NOTE | 2024-02-25 15:29 | PCM.DC.SUM ---
Providers Date of Admission: 02/19/24 Date of Discharge: 02/25/24 Primary Care Physician: Dr. Daron Benton MD Consultations 02/19/24 16:58 Consult: Gastroenterology Routine Consulting Provider: [facility] Reason for Consult: GI bleed EMERGENT Consult: No MD Notified: Yes Date Notified: 02/19/24 Time Notified: 15:07 Method of Notification: Text Reason For Visit: ANEMIA, PNEUMONIA, CHF Diagnosis Discharge Diagnosis (1) Symptomatic anemia: Status: Acute Code(s): D64.9 - Anemia, unspecified Medications at Discharge Home Medications cholecalciferol (vitamin D3) 125 mcg (5,000 unit) tablet 5,000 unit PO DAILY supplement 12/16/13 gabapentin 800 mg tablet 800 mg PO TID MS 07/16/18 baclofen 20 mg tablet 20 mg PO Q6H MS 08/11/21 levothyroxine 50 mcg tablet 50 mcg PO DAILY thyroid 08/11/21 oxycodone 10 mg tablet 10 mg PO Q6H PRN pain 05/24/23 apixaban 5 mg tablet (Eliquis) 5 mg PO BID #60 tabs 01/11/24 dextromethorphan-guaifenesin ER 60 mg-1,200 mg tab,extend release,12hr (Mucinex DM) 1 tab PO Q12H PRN cough/congest 02/19/24 lisinopril 10 mg tablet 10 mg PO DAILY 02/19/24 amoxicillin 875 mg-potassium clavulanate 125 mg tablet 1 tab PO BID #4 tabs 02/25/24 pantoprazole 40 mg tablet,delayed release (Protonix) 40 mg PO BID #60 tabs 02/25/24 Hospital Course Procedures Blood transfusion, Colonoscopy, EGD, EKG and - (CTA chest/chest x-ray) Summary of Care Provided Minutes Spent on Discharge: 38 Hospital Course: Mrs. Yo is a 68-year-old white female who presented to the emergency department at [facility] on 02/19/2024 with lightheadedness. She does have a history of paroxysmal atrial fibrillation and is on systemic anticoagulation with apixaban at baseline. Patient reported on presentation she not been feeling well for the past 2 days prior to presentation. On the day of admission she did experiencing some lightheadedness and she also broke out into a cold sweat and felt her blood pressure was elevated so she presented to the emergency department. Upon presentation she had a blood pressure of 80/51 but was on room air with sats at 94% and her heart rate was 95. Her CBC noted a normal white count but she did have an anemia with a hemoglobin of 6.6. She had a mild BUN elevation at 21 with a serum creatinine of 1.0 which is just slightly worse than her baseline. Her electrolytes are unremarkable. Liver enzymes were normal. Chest x-ray showed a right lower lobe infiltrate as well as some vascular congestion. CTA of the chest was performed and showed no PE but she did have bilateral effusions with probable bilateral pneumonia. With her marked anemia her Eliquis was held and she was transfused 2 units of packed red blood cells. GI was consulted and she was taken for EGD on 02/20/2024 at which time they found no gross lesions in the entire esophagus or stomach but she did have 2 nonbleeding angiodysplastic lesions in the duodenum that were treated with APC. She was also noted to have chronic duodenitis which was biopsied. She was started back on a diet but on 02/22/2024 was noted to be lethargic and weak and had not been eating well. Her hemoglobin had stabilized in the mid 7 range however on the fifth was found to be 7.2 so she was transfused 2 more units of packed red blood cells which in turn improved her hemoglobin to 10.4. With her drop, colonoscopy was pursued. Colonoscopy done on 02/25/2024 showed nonbleeding internal and external hemorrhoids, and 18 mm polyp in the rectum which was removed with hot snare, a few small mouth diverticula in the rectosigmoid colon, 3 sessile polyps in the splenic flexure that were removed with cold snare and sent for pathology and a 5 mm polyp in the splenic flexure that was removed and treated with coagulation for hemostasis with a heater probe. All specimens were sent for pathology and she was returned back to the floor and started on a p.o. diet. With regards to her imaging and her suspected pneumonia, she was placed on community-acquired coverage with azithromycin and ceftriaxone. She did require supplemental oxygen at 2 L. COVID/flu/RSV were negative. Strep pneumo and Legionella antigens were negative. Sputum culture was obtained and showed only presumptive Chanda albicans. She was treated with antibiotics as noted above during her hospital course and transition to oral antibiotics at the time of discharge with Augmentin for 2 more days. We also started her on Protonix 40 mg p.o. twice daily that she will continue for 2 months and then transition to 40 mg daily. We did write a prescription to cover her for the next 60 days. Prescription for this and antibiotics were sent to the local pharmacy prior to discharge. Ambulatory pulse ox was obtained prior to discharge. She was found to be 87% on room air at rest and was placed on 2 L nasal cannula which improved her oxygenation to 97% at rest and 95% with exertion. She was advised not to smoke while she is on oxygen as she is still smoking about 3 to 4 cigarettes daily but is trying to quit. We strongly encourage cessation. She is not currently following with pulmonary medicine however we have asked her to follow-up and made an appointment with her to see Dr. Hurtado after discharge. She is to continue wearing supplemental oxygen until instructed otherwise by her primary care physician. We have asked her to follow-up with her primary care physician within the next 2 weeks. Per gastroenterology, she is to hold her Eliquis until 02/29/2024 and then reinitiated at that time. We have asked her to call gastroenterology to schedule follow-up appointment for biopsy results and ongoing hospital follow-up after discharge to be seen within the next month or as soon as Dr. Gonzalez schedule allows. Her hemoglobin at the time was discharge was 10.7. Discharge diagnoses: Hypoxia Community acquired pneumonia Upper GI bleed secondary to angiodysplastic lesions Hemorrhoids Bleeding polyp at the splenic flexure Hypokalemia-resolved Acute on chronic anemia Paroxysmal atrial fibrillation Hypertension Multiple sclerosis Chronic pain PAD Hypothyroidism Bilateral carotid artery stenosis GERD Hepatosteatosis History of TIA History of psoriatic arthritis/psoriasis Tobacco abuse Physical Exam Const alert, oriented x3, no apparent distress, average body habitus, no limitations and well nourished; Negative for healthy appearing Constitutional Narrative: Older, white female, lying in bed as she is just returned from colonoscopy, appears comfortable and nontoxic, stable on 2 L nasal cannula without any signs of respiratory distress, does appear older than stated age General Appearance: cooperative, comfortable, well kempt and well developed Orientation / Consciousness: awake, oriented to person, oriented to place and oriented to time Exam Limitations: no limitations Nutritional Appearance: thin HEENT normocephalic, head/scalp atraumatic, hearing grossly normal bilaterally and moist oral mucous membranes HEENT Narrative: Mallampati is 2, no thrush Eyes PERRL and EOMs intact bilaterally; Negative for conjunctivae normal Eyes Narrative: Mild conjunctival pallor, no scleral icterus Neck no lymphadenopathy and supple Neck Narrative: Trachea midline, no thyroid enlargement Resp normal respiratory effort, no retractions, no use of accessory muscles and clear to auscultation bilaterally Resp Narrative: Diminished diffusely without any adventitious sounds Auscultation: Negative for rales, rhonchi or wheezes Cardio regular rate, regular rhythm, S1 normal heart sound, S2 normal heart sound, no murmurs, no rub, no gallops and no clicks GI normal to inspection, nondistended, normoactive bowel sounds, soft to palpation and non-tender Extremity no clubbing, cyanosis or edema Extremity Narrative: Pedal pulses are 2+, radial pulses are 2+ Skin no rashes or lesions noted, no wounds, skin turgor normal and no jaundice Neuro oriented x3, CN's II-XII intact bilaterally, moves all extremities and no focal motor deficits Speech: speech normal Psych affect normal Psych Narrative: Mildly anxious, interacts appropriately, eye contact is good Mood & Affect: anxious Weight / BMI Weight Weight: 55.8 kg Body Mass Index (BMI) 19.8 ABG / Lab / Microbiology Data 02/25/24 13:50 02/25/24 03:15 Laboratory: Laboratory Results - last 24 hr 02/25/24 03:15: WBC 6.6, RBC 4.11 L, Hgb 10.3 L, Hct 34.3 L, MCV 83.5, MCH 25.1 L, MCHC 30.0 L, RDW Std Deviation 57.3 H, RDW Coeff of David 19.6 H, Plt Count 205, MPV 9.6, Immature Gran % (Auto) 0.600, Neut % (Auto) 68.4, Lymph % (Auto) 16.3 L, Payette % (Auto) 11.3 H, Eos % (Auto) 2.9, Baso % (Auto) 0.5, Absolute Neuts (auto) 4.6, Absolute Lymphs (auto) 1.08, Nucleated RBC % 0, PT 13.8, INR 1.1, APTT 33.2, Sodium 141, Potassium 3.8, Chloride 110 H, Carbon Dioxide 26.0, Anion Gap 5, BUN 12, Creatinine 0.85, Estim Creat Clear Calc 55.02, Est GFR (MDRD) Af Amer 85, Est GFR (MDRD) Non-Af 70, BUN/Creatinine Ratio 14.1, Glucose 85, Calcium 8.5, TSH 3.07 02/25/24 13:50: Hgb 10.7 L Microbiology: Microbiology 02/19/24 14:20 Blood Culture (Wb) - Arm Left Blood Culture - Final No growth in 5 days. 02/19/24 14:10 Blood Culture (Wb) - Arm Left Blood Culture - Final No growth in 5 days. 02/22/24 09:25 Sputum, Expectorated/Coughed Gram Stain - Final 02/22/24 09:25 Sputum, Expectorated/Coughed Respiratory Culture - Final Presumptive C albicans 02/19/24 17:15 Mucosa - Nose SARS-CoV-2, Influenza & RSV (PCR) - Final 02/19/24 Unknown Urine Catheter - Catheter Legionella Antigen - Final 02/19/24 Unknown Urine Catheter - Catheter Streptococcus pneumoniae Antigen (M - Final 02/19/24 12:18 Stool Stool Occult Blood (CARMEN) - Final Occult Blood Positive D/C Instructions Discharge Diet: Low fat / Low cholesterol Discharge Activity: Return to Normal Activity Return to work on: 02/27/24 Meaningful Use Info Meaningful Use Diagnoses (Choose all that apply): None applicable Discharge Plan Admission Admit Date/Time: 02/19/24 14:21 Primary Reason for Your Visit: Lightheadedness Attending Provider: Eva Mortensen Primary Care Provider: Daron Benton Consulting Providers: Roman Mckeon Instructions Additional Instructions / Restrictions: 1. Please hold your Eliquis for another 3 days and restart it on 02/29/[address] Gonzalez's office tomorrow to schedule hospital follow-up for your GI bleeding 3. You will be on Protonix 40 mg twice daily for the next 2 months and then will need a new prescription for Protonix 40 mg daily Discharge Orders/Prescriptions Prescriptions: New amoxicillin-pot clavulanate 875-125 mg tablet 1 tab PO BID Qty: 4 0RF pantoprazole [Protonix] 40 mg tablet,delayed release (DR/EC) 40 mg PO BID Qty: 60 1RF Continued gabapentin 800 mg tablet 800 mg PO TID baclofen 20 mg tablet 20 mg PO Q6H levothyroxine 50 mcg tablet 50 mcg PO DAILY Patient Comments: take 1 tablet by mouth once daily oxycodone 10 mg tablet 10 mg PO Q6H PRN Patient Comments: take 1 tab q6 PRN for pain cholecalciferol (vitamin D3) 5,000 UNIT tablet 5,000 unit PO DAILY Patient Comments: supplement lisinopril 10 mg tablet 10 mg PO DAILY dextromethorphan-guaifenesin [Mucinex DM] 60-1,200 mg tablet extended release 12 hr 1 tab PO Q12H PRN (Reason: cough/congest) Held Eliquis 5 mg tablet 5 mg PO BID Qty: 60 11RF Hold Instructions: Resume on 02/29/24. Discontinued famotidine 20 mg tablet 20 mg PO DAILY Referrals / Follow Up: Jorge Hurtado DO [Med Staff - Active Staff] - 08/21/24 11:15 am Daron Benton MD [Primary Care Provider] - 02/29/24 (As previously scheduled. ) Kevin Gonzalez DO [Med Staff - Active Staff] - 03/26/24 8:00 am Disposition Disposition (needs filled in before D/C Order can be placed): Home Health Service Charges/Coding Visit Charges Inpatient E&M: 89811 Disch Hosp >30min
--- NOTE | 2024-02-25 16:00 | CASEMGMT ---
Patient has order for discharge. Patient qualifies for home oxygen. Script received and referral sent to [facility], preferred provider. Patient discharging with [facility] with start of care for tomorrow. EVERT CM in to updated patient with planned start of care with [facility] and oxygen setup. Patient denied further needs. Patient had no further questions or concerns.
--- NOTE | 2024-02-25 16:07 | PHA.DC.MC.R ---
Pharmacy [facility] has performed discharge medication reconciliation and counseling for this patient. 1. AMOXICILLIN/CLAVULANATE 875/125MG 1T PO BID X 2 DAYS 2. PANTOPRAZOLE 40MG PO BID The patient's discharge medication list was reviewed for discrepancies and discrepancies were resolved. The patient was counseled on the following discharge medications and changes in medications for homegoing were reviewed. The Reason for Use, instructions for use, and potential side effects were reviewed for all new medications. The patient's questions regarding all of their medications were answered. The patient was able to verbally demonstrate an understanding of their discharge medications. Medications at Discharge Home Medications cholecalciferol (vitamin D3) 125 mcg (5,000 unit) tablet 5,000 unit PO DAILY supplement 12/16/13 gabapentin 800 mg tablet 800 mg PO TID MS 07/16/18 baclofen 20 mg tablet 20 mg PO Q6H MS 08/11/21 levothyroxine 50 mcg tablet 50 mcg PO DAILY thyroid 08/11/21 oxycodone 10 mg tablet 10 mg PO Q6H PRN pain 05/24/23 apixaban 5 mg tablet (Eliquis) 5 mg PO BID #60 tabs 01/11/24 dextromethorphan-guaifenesin ER 60 mg-1,200 mg tab,extend release,12hr (Mucinex DM) 1 tab PO Q12H PRN cough/congest 02/19/24 lisinopril 10 mg tablet 10 mg PO DAILY 02/19/24 amoxicillin 875 mg-potassium clavulanate 125 mg tablet 1 tab PO BID #4 tabs 02/25/24 pantoprazole 40 mg tablet,delayed release (Protonix) 40 mg PO BID #60 tabs 02/25/24
[2024-02-25] MEDS: Potassium Chloride Oral Tablet 20 MEQ PO (17:07)
--- NOTE | 2024-02-26 11:31 | CASEMGMT ---
YAW received a voice mail from Tena Santoro from [facility]. Deana asked if YAW could call her and notify her if patient was discharged and also fax d/c summary. YAW called Tena and left her a voice mail letting her know patient was discharged yesterday. YAW also faxed d/c summary to Tena. Lizbeth Monet MSW TATUM
== END 2024-02-25 17:40 | disposition home health service (06) | DRG 393 ==
LOC: ED 16:22 → PCU 16:39
PROVIDERS: Anesthesiology; Family Medicine; Internal Medicine Gastroenterology; Admitting Provider Internal Medicine; Emergency Provider Emergency Medicine; PCP Family Medicine; Visit Provider Internal Medicine
PROC: 0DJ08ZZ Inspection of Upper Intestinal Tract, Via Natural or Artificial Opening Endoscopic (ICD-10-PCS; CPT 43235; principal; 2024-02-20 10:10)
PROC: 0DJD8ZZ Inspection of Lower Intestinal Tract, Via Natural or Artificial Opening Endoscopic (ICD-10-PCS; CPT 45378; principal; 2024-02-25 11:55)
DX: K63.5 Polyp of colon (principal); G92.8 Other toxic encephalopathy; J15.4 Pneumonia due to other streptococci; I50.30 Unspecified diastolic (congestive) heart failure; D62 Acute posthemorrhagic anemia; R04.2 Hemoptysis; I11.0 Hypertensive heart disease with heart failure; I95.9 Hypotension, unspecified; G35 Multiple sclerosis; I48.0 Paroxysmal atrial fibrillation; I73.9 Peripheral vascular disease, unspecified; E89.0 Postprocedural hypothyroidism; E78.5 Hyperlipidemia, unspecified; F17.210 Nicotine dependence, cigarettes, uncomplicated; K31.819 Angiodysplasia of stomach and duodenum without bleeding; E87.6 Hypokalemia; I25.10 Atherosclerotic heart disease of native coronary artery without angina pectoris; K29.80 Duodenitis without bleeding; K21.9 Gastro-esophageal reflux disease without esophagitis; K57.30 Diverticulosis of large intestine without perforation or abscess without bleeding; K62.1 Rectal polyp; K64.4 Residual hemorrhoidal skin tags; K64.2 Third degree hemorrhoids; R07.89 Other chest pain; T42.6X5A Adverse effect of other antiepileptic and sedative-hypnotic drugs, initial encounter; Y92.239 Unspecified place in hospital as the place of occurrence of the external cause; G89.4 Chronic pain syndrome; R09.02 Hypoxemia; Z79.01 Long term (current) use of anticoagulants; Z79.891 Long term (current) use of opiate analgesic; Z79.890 Hormone replacement therapy; Z79.899 Other long term (current) drug therapy
CPT/HCPCS: 36415; 51702; 71045; 71275; 80048; 80053; 82274; 82962; 83605; 83735; 84100; 84443; 84484; 85014; 85018; 85025; 85610; 85730; 86850; 86900; 86901; 86920; 86922; 87040; 87070; 87205; 87449; 87631; 88305; 93005; 97110; 97162; 97166; 97530; 97535; 99285; 99406; J7030; J7040; J7050; J7120; P9016; Q9967; A4216; J2405; J2916

== ENCOUNTER → 2024-02-29 | Outpatient (CLI) | payer MEDICARE, MEDICAID, SELFPAY ==
[2024-02-29 17:52] LABS: Absolute Neutrophil Count 3.1 X10^3/uL (2.0-7.7); Basophil# 0.07 X10^3/uL; Basophil% 1.4 % (0-1); Eosinophil# 0.25 X10^3/uL; Eosinophils% 5.1 % (0-5); Hematocrit 35.7 % (37-47); Hemoglobin 10.4 g/dL (12.0-15.0); Lymphocyte % 20.5 % (19-41); Mean Corp Hgb Conc 29.1 g/dL (32-36); Mean Corpuscular Hgb 24.6 pg (27.0-32.0); Mean Corpuscular Volume 84.6 fL (81-99); Monocyte# 0.43 X10^3/uL; Monocyte% 8.8 % (0-10); NRBC Flagged by Analyzer 0 % (0-5); Neutrophil # 3.09 X10^3/uL (2.7-7.7); Neutrophil % 63.6 % (47-70); POSITIVE MORPHOLOGY YES; Platelet Count 211 K/mm3 (150-450); RBC Distribution Width CV 20.3 % (11.6-14.6); RBC Distribution Width SD 62.6 fl (35.1-43.9); RET-HE 30.1 pg (30-35); Red Blood Count 4.22 M/mm3 (4.2-5.4); White Blood Count 4.9 K/mm3 (4.4-11.0)
[2024-02-29 17:59] LABS: Differential Indicated SCAN CRITERIA MET
[2024-02-29 18:05] LABS: Vitamin B12 386 pg/mL (211-911)
[2024-02-29 18:16] LABS: Differential Comment SCANNED
[2024-02-29 18:20] LABS: ALB/GLOB Ratio 0.8 RATIO (0.9-2.4); AST(SGOT) 15 U/L (15-37); Alanine Aminotransfer ALT/SGPT 13 U/L (13-56); Albumin, Serum 2.9 g/dL (3.2-5.0); Alkaline Phosphatase 134 U/L (45-117); Anion Gap 3 (5-15); BUN 13 mg/dL (7-18); BUN/Creat Ratio 13.8 RATIO (10-20); Calcium,Total 8.8 mg/dL (8.5-10.1); Chloride 105 mmol/L (98-107); Creatinine, Serum 0.94 mg/dL (0.55-1.02); EST Glomerular Filtration Rate 63 mL/min (>60); Est Glom Filt Rate - Afr Amer 76 mL/min (>60); Ferritin 292 ng/mL (8-252); Globulin 3.5 g/dL (2.2-4.2); Glucose 72 mg/dL (74-106); Potassium 3.9 mmol/L (3.5-5.1); Protein, Total 6.4 g/dL (6.4-8.2); Sodium Level 139 mmol/L (136-145)
== END | disposition home or self-care (01) ==
LOC: MFPLAB 14:54
PROVIDERS: PCP Family Medicine; Visit Provider Family Medicine
DX: I73.9 Peripheral vascular disease, unspecified (principal); Z92.89 Personal history of other medical treatment
CPT/HCPCS: 36415; 80053; 82607; 82728; 82746; 85025; 85045

== ENCOUNTER → 2024-03-26 | Outpatient (CLI) | payer MEDICARE, MEDICAID, SELFPAY ==
--- NOTE | 2024-03-26 07:37 | CT_ITS ---
STUDY: CTA NECK WITH CONTRAST REASON FOR EXAM: Female, 68 years old. STRICTURE OF ARTERY. Prior endarterectomy. RADIATION DOSAGE (If Supplied By Facility): CTDIvol = ( 14.77 ) mGy, DLP = ( 370.89 ) mGycm TECHNIQUE: CT angiography with multi-detector data acquisition was performed from the aortic arch to the skull base following intravenous administration of IV 100mL [id number]-370. MIP images were reconstructed from the axial data set. Post-processing of the angiographic images was performed, with multiplanar reformation and 3D reconstruction. Individualized dose optimization techniques were used for this CT. COMPARISON: Comparison is made with prior study dated October 03, 2021. FINDINGS: The left lobe of the thyroid gland is not seen. AORTIC ARCH: There is atherosclerotic calcific plaque formation of the aortic arch and great vessels arising from the aortic arch, without a hemodynamically significant stenosis. There is a bovine origin of the great vessels with a common origin of the brachiocephalic and left common carotid artery. Normal origin of the left subclavian artery. Once again, there is occlusion of the brachiocephalic artery at its origin. There is a patent graft arising from the left common carotid artery to the origin of the right internal carotid artery. RIGHT CAROTID ARTERIES: There is atherosclerotic plaque formation of the common carotid artery, but without a hemodynamically significant stenosis. Normal right common carotid bulb. There is minimal atherosclerotic plaque formation of the origin of the right internal carotid artery with less than 50% cross sectional diameter stenosis. Normal visualized cervical portion of the right internal carotid artery. Normal origin of the right external carotid artery (ECA). LEFT CAROTID ARTERIES: There is atherosclerotic plaque formation of the common carotid artery, but without a hemodynamically significant stenosis. Normal left common carotid bulb. There is moderate atherosclerotic plaque formation of the origin of the left internal carotid artery with an estimated stenosis of 50-69% stenosis. Normal visualized cervical portion of the left internal carotid artery. Normal origin of the left external carotid artery (ECA). VERTEBRAL ARTERIES: There is enhancement within the bilateral vertebral arteries with a small left vertebral artery, and a dominant right vertebral artery. CT/CTA Neck W/WO Contrast IMPRESSION: Patent graft arising from the left common carotid artery to the origin of the right internal carotid artery. Minimal plaque formation at the origin of the right internal carotid artery. 50-69% narrowing at the origin of the left internal carotid artery. Electronically Signed: Jovon Freitas MD at 9:27 EDT ,
== END | disposition home or self-care (01) ==
LOC: CT 07:36
PROVIDERS: PCP Family Medicine; Referring Provider Surgery Vascular Surgery; Visit Provider Surgery Vascular Surgery
DX: G35 Multiple sclerosis (principal); I74.09 Other arterial embolism and thrombosis of abdominal aorta; I63.9 Cerebral infarction, unspecified; Z82.3 Family history of stroke; E78.5 Hyperlipidemia, unspecified; G45.9 Transient cerebral ischemic attack, unspecified; R00.2 Palpitations; I25.10 Atherosclerotic heart disease of native coronary artery without angina pectoris; E87.5 Hyperkalemia; M51.36 Other intervertebral disc degeneration, lumbar region; I77.1 Stricture of artery; I70.1 Atherosclerosis of renal artery; I70.213 Atherosclerosis of native arteries of extremities with intermittent claudication, bilateral legs; F17.200 Nicotine dependence, unspecified, uncomplicated; E07.9 Disorder of thyroid, unspecified; I10 Essential (primary) hypertension
CPT/HCPCS: 70498; Q9967

== ENCOUNTER → 2024-05-15 | Outpatient (CLI) | payer MEDICARE, MEDICAID, SELFPAY ==
--- NOTE | 2024-05-15 11:04 | RAD_ITS ---
STUDY: X-RAY - RIGHT FOOT CLINICAL: Female, 68 years old. Fell a week ago. Right foot great toe pain and swelling. TECHNIQUE: 3 views of the right foot. COMPARISON: None. FINDINGS: Normal talus, calcaneus, and tarsal bones. Normal visualized subtalar, talonavicular, calcaneocuboid, tarsal and tarsometatarsal articulations. Normal metatarsi. There is mild degenerative arthrosis of the metatarsophalangeal joint of the hallux. Normal tibial and fibular sesamoid bones. Normal interphalangeal joint of the great toe. Normal phalanges of the great toe. Normal second through fifth metatarsophalangeal joints. Normal interphalangeal joints and phalanges of the lesser toes. The soft tissue structures are unremarkable. There is no demonstrated fracture. RAD/Foot min 3 Views IMPRESSION: Mild degenerative arthrosis of the metatarsophalangeal joint of the hallux. Electronically Signed: Vinny Mortensen MD at 11:22 EDT ,
--- NOTE | 2024-05-15 11:04 | RAD_ITS ---
STUDY: X-RAY - RIGHT ANKLE REASON FOR EXAM: Female, 68 years old. Fell a week ago. Right foot and ankle pain. TECHNIQUE: 3 views of the right ankle. COMPARISON: None. FINDINGS: Normal visualized distal tibia and fibula. Normal medial and lateral malleoli. Normal tibiotalar articulation and ankle mortise. Normal visualized talus and calcaneus. The visualized subtalar, talonavicular, calcaneocuboid and tarsal articulations are normal. There is no demonstrated fracture. The soft tissue structures are unremarkable. RAD/Ankle min 3 Views IMPRESSION: Normal x-ray examination of the right ankle. Electronically Signed: Vinny Mortensen MD at 11:20 EDT ,
== END | disposition home or self-care (01) ==
LOC: MTRAD 11:03
PROVIDERS: PCP Family Medicine; Referring Provider Family Medicine; Visit Provider Family Medicine
DX: S90.31XA Contusion of right foot, initial encounter (principal); S90.121A Contusion of right lesser toe(s) without damage to nail, initial encounter; X58.XXXA Exposure to other specified factors, initial encounter
CPT/HCPCS: 73610; 73630

== ENCOUNTER → 2024-06-19 | Outpatient (CLI) | payer MEDICARE, MEDICAID, SELFPAY ==
[2024-06-19 16:20] LABS: Absolute Neutrophil Count 4.1 X10^3/uL (2.0-7.7); Basophil# 0.04 X10^3/uL; Basophil% 0.6 % (0-1); Eosinophil# 0.23 X10^3/uL; Eosinophils% 3.7 % (0-5); Hematocrit 36.8 % (37-47); Hemoglobin 11.8 g/dL (12.0-15.0); Lymphocyte % 19.3 % (19-41); Mean Corp Hgb Conc 32.1 g/dL (32-36); Mean Corpuscular Hgb 27.4 pg (27.0-32.0); Mean Corpuscular Volume 85.6 fL (81-99); Mean Platelet Vol. 9.4 fl (6.2-12.0); Monocyte# 0.61 X10^3/uL; Monocyte% 9.8 % (0-10); NRBC Flagged by Analyzer 0 % (0-5); Neutrophil # 4.11 X10^3/uL (2.7-7.7); Neutrophil % 66.1 % (47-70); Platelet Count 154 K/mm3 (150-450); RBC Distribution Width CV 16.5 % (11.6-14.6); RBC Distribution Width SD 51.3 fl (35.1-43.9); RET-HE 27.8 pg (30-35); Reticulocyte Count 1.25 % (0.5-1.5); White Blood Count 6.2 K/mm3 (4.4-11.0)
[2024-06-19 16:49] LABS: Ferritin 24 ng/mL (8-252); Iron 44 ug/dL (50-170); Iron Binding Capacity,Total 317 ug/dL (250-450); LDH 193 U/L (84-246)
[2024-06-23 10:07] LABS: Albumin 3.4 g/dL (2.9-4.4); Alpha-1-Globulins 0.2 g/dL (0.0-0.4); Alpha-2-Globulins 0.8 g/dL (0.4-1.0); Endomysial Antibody IgA Negative (Negative); Gamma Globulin 0.7 g/dL (0.4-1.8); Haptoglobin 243 mg/dL (37-355); Immunoglobulin A 135 mg/dL (87-352); Immunoglobulin G 775 mg/dL (586-1602); Immunoglobulin M 98 mg/dL (26-217); t-Transglutaminase IgA <2 U/mL (0-3)
== END | disposition home or self-care (01) ==
LOC: LAB 15:41
PROVIDERS: PCP Family Medicine; Referring Provider Internal Medicine Gastroenterology; Visit Provider Internal Medicine Gastroenterology
DX: D64.9 Anemia, unspecified (principal)
CPT/HCPCS: 36415; 82728; 82784; 83010; 83516; 83540; 83550; 83615; 84165; 85025; 85045; 86255; 86334

== ENCOUNTER → 2024-08-14 | Outpatient (CLI) | payer MEDICARE, MEDICAID, SELFPAY ==
[2024-08-14 17:29] LABS: Absolute Lymphocyte Count 1.25 X10^3/uL (0.83-4.51); Absolute Neutrophil Count 4.6 X10^3/uL (2.0-7.7); Basophil# 0.05 X10^3/uL; Basophil% 0.7 % (0-1); Eosinophil# 0.39 X10^3/uL; Eosinophils% 5.6 % (0-5); Hematocrit 39.2 % (37-47); Hemoglobin 12.1 g/dL (12.0-15.0); Lymphocyte # 1.25 X10^3/ul (0.83-4.51); Lymphocyte % 17.8 % (19-41); Mean Corp Hgb Conc 30.9 g/dL (32-36); Mean Corpuscular Hgb 27.9 pg (27.0-32.0); Mean Corpuscular Volume 90.5 fL (81-99); Mean Platelet Vol. 10.9 fl (6.2-12.0); Monocyte# 0.66 X10^3/uL; Monocyte% 9.4 % (0-10); NRBC Flagged by Analyzer 0 % (0-5); Neutrophil # 4.64 X10^3/uL (2.7-7.7); Neutrophil % 66.2 % (47-70); Platelet Count 160 K/mm3 (150-450); RBC Distribution Width CV 15.4 % (11.6-14.6); RBC Distribution Width SD 51.4 fl (35.1-43.9); Red Blood Count 4.33 M/mm3 (4.2-5.4)
[2024-08-14 18:08] LABS: AST(SGOT) 12 U/L (15-37); Alanine Aminotransfer ALT/SGPT 14 U/L (13-56); Albumin, Serum 3.3 g/dL (3.2-5.0); Alkaline Phosphatase 128 U/L (45-117); Anion Gap 5 (5-15); BUN 16 mg/dL (7-18); BUN/Creat Ratio 14.5 RATIO (10-20); Calcium,Total 9.3 mg/dL (8.5-10.1); Chloride 107 mmol/L (98-107); EST Glomerular Filtration Rate 52 mL/min (>60); Est Glom Filt Rate - Afr Amer 63 mL/min (>60); Ferritin 35 ng/mL (8-252); Globulin 3.4 g/dL (2.2-4.2); Glucose 82 mg/dL (74-106); Iron 31 ug/dL (50-170); Iron Binding Capacity,Total 339 ug/dL (250-450); PERCENT IRON SATURATION 9.1 % (15.0-55.0); Protein, Total 6.7 g/dL (6.4-8.2); Sodium Level 140 mmol/L (136-145); T4 Free Direct 1.18 ng/dL (0.76-1.46)
== END | disposition home or self-care (01) ==
LOC: MFPLAB 14:20
PROVIDERS: PCP Family Medicine; Visit Provider Family Medicine
DX: I10 Essential (primary) hypertension (principal); D64.9 Anemia, unspecified; E03.9 Hypothyroidism, unspecified
CPT/HCPCS: 36415; 80053; 82728; 83540; 83550; 84439; 84443; 85025

== ENCOUNTER → 2024-08-25 | Outpatient (CLI) | payer MEDICARE, MEDICAID, SELFPAY | END | disposition home or self-care (01) | LOC: PSN 09:01 | PROVIDERS: PCP Family Medicine; Referring Provider Internal Medicine Critical Care Medicine; Visit Provider Internal Medicine Critical Care Medicine | DX: F17.210 Nicotine dependence, cigarettes, uncomplicated (principal) | CPT/HCPCS: 94060; 94726; 94729 ==

== ENCOUNTER → 2024-08-27 | Outpatient (CLI) | payer MEDICARE, MEDICAID, SELFPAY ==
--- NOTE | 2024-08-27 08:51 | ART_ITS ---
Reason For Study: S/P Procedure Procedure A bilateral lower extremity continuous wave Doppler with analog waveform analysis and ankle brachial indexes. Left Segmental Pressures Left brachial= 145mmHg. Left posterior tibial artery = 67mmHg. Left dorsalis pedis artery = 75mmHg. Left digit = 60 mmHg. The left posterior tibial artery waveforms are monophasic. The left dorsalis pedis waveforms are monophasic. Right Segmental Pressures Right brachial= 133mmHg. Right posterior tibial artery = 79mmHg. Right dorsalis pedis artery = 78mmHg. Right digit = 62 mmHg. The right posterior tibial artery waveforms are monophasic. The right dorsalis pedis waveforms are monophasic. Indices The right ankle brachial index by the posterior tibial artery is 0.54. The right ankle brachial index by the dorsalis pedis is 0.54. The right digital-brachial index is 0.43. The left ankle brachial index by the posterior tibial artery is 0.46. The left ankle brachial index by the dorsalis pedis is 0.52. The left digital-brachial index is 0.41. VL/Ankle Brachial Index Interpretation Summary Resting ankle-brachial indices appear moderately abnormal bilaterally. Ordering Physician: Kam Nava Referring Physician: Daron Benton Performed By: Zaki Bocanegra RVT
--- NOTE | 2024-08-27 08:51 | AAVD_ITS ---
Reason For Study: S/P Procedure Aorta Measurements Aorta Doppler Measurements Proximal aorta measures2.21 x 2.29cm. in cross- Peak systolic flow velocities within the proximal sectional axis. aorta measure 79.6 cm/sec. Proximal aorta measures2.13cm. in longitudinal Peak systolic flow velocities within the mid aorta axis. measure 90.4 cm/sec. Mid aorta measures1.59 x 1.50cm. in cross- Peak systolic flow velocities within the distal sectional axis. aorta measure 264.1 cm/sec. Mid aorta measures1.58cm. in longitudinal axis. Distal aorta measures1.52 x 1.50cm. in cross- sectional axis. Distal aorta measures1.52cm. in longitudinal axis. Left Iliac Artery Left iliac artery measures 0.72 x 0.70 cm. in the cross-sectional axis. Left iliac artery measures 0.71 cm. in the longitudinal axis. Peak systolic velocity in the left iliac artery measures 143.4 cm/sec. Right Iliac Artery Right iliac artery measures 0.91x 0.83 cm. in the cross-sectional axis. Right iliac artery measures 0.97 cm. in the longitudinal axis. Stent Noted in Rt AGATA Prox Stent PSV - 403.5 cm/s Mid Stent PSV - 215.3 cm/s Dist Stent PSV - 115.7 cm/s Post Stent PSV - 154.4 cm/s. VL/Abd Aortic/IVC Duplex scan Interpretation Summary Moderate distal aortic stenosis. Severe right in stent stenosis in right common iliac. Left iliac normal. No aneurysm seen. Ordering Physician: Kam Nava Referring Physician: Daron Benton Performed By: Zaki Bocanegra RVT
== END | disposition home or self-care (01) ==
LOC: CVS 08:49
PROVIDERS: PCP Family Medicine; Referring Provider Surgery Vascular Surgery; Visit Provider Surgery Vascular Surgery
DX: Z48.812 Encounter for surgical aftercare following surgery on the circulatory system (principal); I74.09 Other arterial embolism and thrombosis of abdominal aorta; I70.213 Atherosclerosis of native arteries of extremities with intermittent claudication, bilateral legs; F17.200 Nicotine dependence, unspecified, uncomplicated
CPT/HCPCS: 93922; 93978

== ENCOUNTER → 2024-10-01 | Outpatient (CLI) | payer MEDICARE, MEDICAID, SELFPAY ==
[2024-10-01 12:30] VITALS: PULSE 63; PULSE 71; PULSE 76; PULSE 77; PULSE 82; O2SAT 97; O2SAT 98; O2SAT 99
--- NOTE | 2024-10-06 12:19 | PCM.PSN.6M ---
PSN 6 Minute Walk Test 6 Minute Walk Test 6 Minute Walk Test: 6 Minute Walk Test PSN:6-Minute Walk Test Start: 10/01/24 13:11 Freq: Status: Active Protocol: [id number] Document 10/01/24 12:30 EW (Rec: 10/01/24 13:16 EW [id number]) 6 Minute Walk Test Date Performed 10/01/24 Time Performed 12:30 Height 5 ft 6 in Weight: 113 lb Weight in Pounds 113.0 lbs Assistive device used: Walker Pre-test Oxygen Delivery Method Room Air Pulse Ox (%) 97 Pulse Rate (60-100 beats/min) 71 Dyspnea Melissa Scale (0-10) 2 Exertion Melissa Scale (6-20) 12 1st minute Oxygen Delivery Method Room Air Pulse Ox (%) 98 Pulse Rate (60-100 beats/min) 76 2nd minute Oxygen Delivery Method Room Air Pulse Ox (%) 99 Pulse Rate (60-100 beats/min) 82 3rd minute Oxygen Delivery Method Room Air Pulse Ox (%) 99 Pulse Rate (60-100 beats/min) 82 4th minute Oxygen Delivery Method Room Air Pulse Ox (%) 98 Pulse Rate (60-100 beats/min) 76 5th minute Oxygen Delivery Method Room Air Pulse Ox (%) 97 Pulse Rate (60-100 beats/min) 77 6th minute Oxygen Delivery Method Room Air Pulse Ox (%) 98 Pulse Rate (60-100 beats/min) 77 Post-test Oxygen Delivery Method Room Air Pulse Ox (%) 99 Pulse Rate (60-100 beats/min) 63 Dyspnea Melissa Scale (0-10) 3 Exertion Melissa Scale (6-20) 13 Full Laps Walked 14 Partial Lap, Number of Tiles Walked 0 Total Distance Walked (ft) 826 Interpretation Interpretation: The patient ambulated 826 feet over the course of 6 minutes beginning on room air with the use of a walker. Pretesting oxygen saturation was noted to be 97% on room air. With ambulation, the martina oxygen saturation was 97%. There was no significant exertional oxygen desaturation. Recommendations Recommendations: There is no indication for the use of supplemental oxygen at this time.
== END | disposition home or self-care (01) ==
LOC: PSN 12:08
PROVIDERS: PCP Family Medicine; Referring Provider Internal Medicine Critical Care Medicine; Visit Provider Internal Medicine Critical Care Medicine
DX: F17.210 Nicotine dependence, cigarettes, uncomplicated (principal)
CPT/HCPCS: 94618

== ENCOUNTER → 2024-10-03 | Outpatient (CLI) | payer MEDICARE, MEDICAID, SELFPAY ==
--- NOTE | 2024-10-03 12:51 | CT_ITS ---
HISTORY: Tobacco Dependency. TECHNIQUE: Helically acquired images were obtained of the chest without contrast. A radiation dose optimization technique was used for this scan. 550 images. COMPARISON: 02/23/2024, 01/11/2024. FINDINGS: LARGE AIRWAYS: Grossly patent. LUNGS: Mild emphysema with predominantly upper lobe scarring. Mild atelectasis in the middle lobes. 2 mm right lower lobe nodule medially on image 164 of series 2. PLEURA: No pneumothorax or significant pleural effusion. HEART/PERICARDIUM: Heart within normal limits in size with coronary artery calcification. No pericardial effusion. VESSELS: Thoracic aorta nondilated. Atherosclerosis noted. MEDIASTINUM/ARGENIS: No pathologically enlarged adenopathy. BONES: Degenerative change. Mild scoliosis. Thoracic spinal electrode. CT/Low Dose CT Lung Screening IMPRESSION: Resolution of pneumonia/pneumonitis as well as bilateral pleural effusions. Mild emphysema with scarring and atelectasis. 2 mm right lower lobe pulmonary nodule. Lung-RADS category 2: Continue annual screening with low dose CT. Electronically Signed: Angle Reynoso MD at 11:05 EST ,
== END | disposition home or self-care (01) ==
LOC: PSN 12:50
PROVIDERS: PCP Family Medicine; Referring Provider Internal Medicine Critical Care Medicine; Visit Provider Internal Medicine Critical Care Medicine
DX: F17.210 Nicotine dependence, cigarettes, uncomplicated (principal)
CPT/HCPCS: 71271

== ENCOUNTER 2024-11-28 02:57 | Emergency (ER) | payer MEDICARE, MEDICAID, SELFPAY ==
[2024-11-28 02:58] VITALS: BP 190/108; BP 206/107; PULSE 59; PULSE 77; RESP 15; RESP 18; TEMP 36.5; O2SAT 100; BMI 19.2
--- NOTE | 2024-11-28 03:13 | EKG12_ITS ---
Test Reason : DYSRHYTHMIA Blood Pressure : */* mmHG Vent. Rate : 60 BPM Atrial Rate : 60 BPM P-R Int : 184 ms QRS Dur : 92 ms QT Int : 470 ms P-R-T Axes : 80 67 75 degrees QTcB Int : 470 ms Normal sinus rhythm Possible Left atrial enlargement ST elevation, consider early repolarization Borderline ECG Confirmed by Roberto Smiley ([id number]), assistant film editor SELAM BARRETO ([id number]) on 11/28/2024 9:39:13 AM Referred By: Confirmed By: Roberto Smiley
--- NOTE | 2024-11-28 03:16 | EX.ED.DYSGE1 ---
HPI History of Present Illness Chief Complaint: Hypertension Informant: patient and EMS Narrative Narrative: Patient is a 69-year-old female with past medical history of hypertension paroxysmal atrial fibrillation and carotid stenosis on Eliquis as well as chronic pain and hyperlipidemia. She states over the last 2 to 3 days she has not been able to sleep secondary to her pain despite taking her home oxycodone. She states she has been on lisinopril for hypertension and her family doctor recently added amlodipine. She states she has been taking the medications as directed. She denies any illicit drug use or excessive stimulant use. She states that as her symptoms are not improving with her home medications EMS was called and she was brought in for evaluation [facility] Medical History PAF (paroxysmal atrial fibrillation) Atrial fibrillation Hypothyroidism Smoker Coronary artery disease TIA (transient ischemic attack) Influenza A Nonsustained paroxysmal supraventricular tachycardia Multiple sclerosis Nonobstructive atherosclerosis of coronary artery Peripheral vascular occlusive disease Essential (primary) hypertension Bilateral carotid artery stenosis History of transient ischemic attack (TIA) Fatty liver Thrombocytopenia GERD (gastroesophageal reflux disease) Psoriatic arthritis Psoriasis Osteoporosis Osteoarthritis Goiter Multiple sclerosis HLD (hyperlipidemia) Angina pectoris Chronic pain syndrome Home Medications ?Medication ?Instructions ?Recorded ?Last Taken ?Type cholecalciferol (vitamin D3) 125 5,000 unit PO DAILY supplement 12/16/13 12/01/23 History mcg (5,000 unit) tablet gabapentin 800 mg tablet 800 mg PO TID MS 07/16/18 12/01/23 History baclofen 20 mg tablet 20 mg PO Q6H MS 08/11/21 12/01/23 History levothyroxine 50 mcg tablet 50 mcg PO DAILY thyroid 08/11/21 12/01/23 History oxycodone 10 mg tablet 10 mg PO Q6H PRN pain 05/24/23 12/01/23 History apixaban 5 mg tablet (Eliquis) 5 mg PO BID #60 tabs 01/11/24 Unknown Rx dextromethorphan-guaifenesin ER 60 1 tab PO Q12H PRN cough/congest 02/19/24 Unknown History mg-1,200 mg tab,extend release,12hr (Mucinex DM) amlodipine 5 mg tablet (Norvasc) 5 mg PO QDAY #90 tabs 11/24/24 Unknown Rx famotidine 40 mg tablet 40 mg PO QDAY PRN indigestion 11/24/24 Unknown History lisinopril 10 mg tablet 10 mg PO BID 11/24/24 Unknown History rosuvastatin 10 mg tablet 10 mg PO QDAY #90 tabs 11/24/24 Unknown Rx Allergy/AdvReac Type Severity Reaction Status Date / Time colestipol (From Colestid) Allergy Mild unknown Verified 11/28/24 03:01 pregabalin (From Lyrica) Allergy Mild Hives Verified 11/28/24 03:01 amitriptyline Allergy Rash Verified 11/28/24 03:01 temazepam (From Restoril) AdvReac Mild Nausea/Vom/ Verified 11/28/24 03:01 Diarrhea Antihistamines - Alkylamine AdvReac Nausea/Vom/ Verified 11/28/24 03:01 Diarrhea Antihistamines - Ethanolamine AdvReac Nausea/Vom/ Verified 11/28/24 03:01 Diarrhea Antihistamines - AdvReac Nausea/Vom/ Verified 11/28/24 03:01 Ethylenediamine Diarrhea Antihistamines - Piperazine AdvReac Nausea/Vom/ Verified 11/28/24 03:01 Diarrhea Antihistamines - Piperidine AdvReac Nausea/Vom/ Verified 11/28/24 03:01 Diarrhea aspirin AdvReac I'M ON Verified 11/28/24 03:01 BLOOD THINNERS codeine AdvReac Nausea Verified 11/28/24 03:01 Corticosteroids AdvReac Upset Verified 11/28/24 03:01 (Glucocorticoids) Stomach morphine AdvReac Nausea Verified 11/28/24 03:01 Heqbqkc-EFC-FhA Reductase AdvReac Nausea Verified 11/28/24 03:01 Inhibitor (Ijzevxt-Qhs-Zwk Reductase Inhibitor) Family History Mother Cancer CAD (coronary artery disease) Brain tumor Grandfather CVA (cerebral vascular accident) Father CAD (coronary artery disease) Ruptured abdominal aortic aneurysm (AAA) Sister Brain aneurysm Surgical History History of appendectomy History of cholecystectomy History of angioplasty of peripheral vessel (07/11/19) Stenosis of left subclavian artery History of left heart catheterization (01/25/15) S/P coil embolization of cerebral aneurysm History of angioplasty of peripheral vessel History of right-sided carotid endarterectomy History of left-sided carotid endarterectomy History of partial thyroidectomy (11/30/05) History of hemorrhoidectomy History of hysterectomy History of section Brain aneurysm Fracture of right lower leg S/P insertion of iliac artery stent History of left breast biopsy H/O hemorrhoidectomy S/P hysterectomy H/O: S/P thyroidectomy Social History household members: none housing: apartment Smoking Status: Current every day smoker tobacco type: cigarettes alcohol intake: never caffeine: Yes Type: coffee and tea ROS ROS ED Constitutional Constitutional ED: Denies chills or fever(s) Eyes Eyes: Denies blurry vision or change in vision ENT ENT ED: Denies sore throat Cardiovascular Cardiovascular: Denies chest pain or palpitations Respiratory/Chest Respiratory/Chest: Denies cough or dyspnea Gastrointestinal Gastrointestinal: Denies abdominal pain, diarrhea, nausea or vomiting Genitourinary Genitourinary ED: Denies dysuria Musculoskeletal Musculoskeletal: Reports arthralgias and back pain Integumentary Denies rash Neurologic Neurologic: Reports headache(s) Hematologic/Lymphatic Hematologic/Lymphatic: Reports easy bleeding and easy bruising EXAM Physical Exam Const Vital Signs: 11/28/24 02:58 11/28/24 02:58 11/28/24 04:58 Temperature 97.7 F L Temperature Source Oral Pulse Rate 59 L 77 61 Respiratory Rate 18 15 13 Blood Pressure 206/107 H 190/108 H 138/62 H Blood Pressure Mean 140 135 87 Pulse Ox 100 100 93 Oxygen Delivery Method Room Air Room Air Room Air Positive well nourished and well developed General Appearance ED: well developed; Negative for pallor HEENT HEENT Narrative: Normocephalic atraumatic Eyes EOMs intact bilaterally Eyes Narrative: Pupils are pinpoint in nature consistent with reported recent oxycodone use Neck supple Neck Narrative: No nuchal rigidity or meningeal sign Resp normal respiratory effort and clear to auscultation bilaterally Resp Narrative: Breath sounds are diminished throughout but overall clear to auscultation without signs of respiratory distress Cardio regular rate and regular rhythm Rate: other Other Details: Heart is regular rate and rhythm There is an occasional ectopic beat noted Radial and carotid pulses are equal and symmetric GI non-tender, non-distended and no masses GI Narrative: Abdomen is soft nontender and nondistended with hypoactive bowel sounds. No voluntary guarding or rigidity. No pulsatile mass or fluid wave Auscultation: hypoactive bowel sounds Palpation: soft Extremity normal to inspection Extremity Narrative: No asymmetric edema no pitting edema negative Homans' sign bilaterally Neuro oriented x3, CN's II-XII intact bilaterally and no sensory deficits noted Neuro Narrative: GCS of 15 Cranial nerves II through XII are grossly intact there are no focal neurologic deficits No pronator drift no dysmetria no truncal ataxia NIH stroke scale score of 0 Sensorium / Orientation: alert Motor Exam: strength 5/5 throughout Psych Mood & Affect: anxious Skin no rashes or lesions noted and no wounds General Skin Exam: Negative for jaundice or pallor MDM MDM MDM Narrative Medical decision making narrative: Patient arrived to the ER hypertensive but otherwise with stable vitals. She reported that her chronic medications for her pain did not seem to be working and therefore I feel that the hypertension is most likely secondary to pain response and not idiopathic. In order to ensure that she is not have signs of endorgan damage such as acute kidney injury cardiac ischemia spontaneous brain bleed I did elect to perform a head CT as well as EKG with basic labs. As the patient did report there was some pain in the back I added a D-dimer with concern for potential PE or dissection. Patient's D-dimer is negative which goes against a dissection or PE and PE is even less likely as she is on anticoagulation. Head CT revealed no spontaneous bleed or mass. Lab work showed no signs of acute kidney injury or electrolyte abnormality. The patient was given pain medication and there was improvement of blood pressure. However it did not truly drop to the 15 to 25% range that is the goal reduction in the ER. Therefore she was given 1 more dose of pain medication as well as neuromodulation with gabapentin and hydralazine was added. Following this the patient had improvement of her blood pressure and her neurologic exam remained normal and therefore with improvement of symptoms as well as appropriate duction of blood pressure without signs of endorgan damage she is otherwise safe for discharge History & Record Review Discussion w/independent historian: EMS personnel and Patient Lab Data Attestation: I reviewed the patient's lab results. Labs: Laboratory Results - last 24 hr 11/28/24 03:00 WBC 9.1 RBC 4.83 Hgb 13.1 Hct 40.3 MCV 83.4 MCH 27.1 MCHC 32.5 RDW Std Deviation 47.8 H RDW Coeff of David 15.8 H Plt Count 204 MPV 10.2 Immature Gran % (Auto) 0.400 Neut % (Auto) 63.3 Lymph % (Auto) 23.0 [place] % (Auto) 10.2 H Eos % (Auto) 2.3 Baso % (Auto) 0.8 Absolute Neuts (auto) 5.8 Absolute Lymphs (auto) 2.10 Nucleated RBC % 0 D-Dimer Quant (PE/DVT) 0.40 Sodium 138 Potassium 3.2 L Chloride 105 Carbon Dioxide 26.0 Anion Gap 7 BUN 17 Creatinine 1.14 H Estim Creat Clear Calc 39.22 Est GFR (MDRD) Af Amer 61 Est GFR (MDRD) Non-Af 50 L BUN/Creatinine Ratio 14.9 Glucose 107 H Calcium 9.5 Radiography Diagnostic Testing: Clinical Impression(s) from Imaging Studies Brain CT 11/28/24 03:18 IMPRESSION: No acute intracranial abnormality. Electronically Signed: Cecilio Delacruz DO at 4:42 EST Reading Location ID and State: [facility] / [place] Tel , Service support , Discharge Plan Triage Chief Complaint: Hypertension ED Provider: Yasmani Haynes Dx/Rx/DC Orders Clinical Impression: Accelerated hypertension, HLD (hyperlipidemia), PAF (paroxysmal atrial fibrillation), Chronic pain, Current use of longterm anticoagulation Instructions: ED Hypertension, Established Prescriptions: No Action gabapentin 800 mg tablet 800 mg PO TID baclofen 20 mg tablet 20 mg PO Q6H levothyroxine 50 mcg tablet 50 mcg PO DAILY Patient Comments: take 1 tablet by mouth once daily oxycodone 10 mg tablet 10 mg PO Q6H PRN Patient Comments: take 1 tab q6 PRN for pain famotidine 40 mg tablet 40 mg PO QDAY PRN (Reason: indigestion) lisinopril 10 mg tablet 10 mg PO BID amlodipine [Norvasc] 5 mg tablet 5 mg PO QDAY Qty: 90 3RF rosuvastatin 10 mg tablet 10 mg PO QDAY Qty: 90 3RF cholecalciferol (vitamin D3) 5,000 UNIT tablet 5,000 unit PO DAILY Patient Comments: supplement dextromethorphan-guaifenesin [Mucinex DM] 60-1,200 mg tablet extended release 12 hr 1 tab PO Q12H PRN (Reason: cough/congest) Eliquis 5 mg tablet 5 mg PO BID Qty: 60 11RF Primary Care Provider: Daron Benton Referrals: Daron Benton MD [Primary Care Provider] - Activity Restrictions/Additional Instructions: Your workup showed no signs of endorgan damage such as cardiac ischemia kidney injury or brain bleed. Please continue all of your medications as directed by your family doctor and return to the ER should you have any further concerns Print Language: Georgian Disposition Disposition: Home, Self Care
--- NOTE | 2024-11-28 03:18 | CT_ITS ---
INDICATION: headache EXAMINATION: CT BRAIN - CT Head or Brain W/O Contrast Injection TECHNIQUE: Multiple axial images were obtained of the head with sagittal and coronal reconstructed images. Individualized dose optimization techniques were used for this CT. IV contrast dosage and agent: None. COMPARISON: 01/18/2024 CT. FINDINGS: BRAIN PARENCHYMA: No evidence of an acute infarct or intracranial hemorrhage. No evidence of a mass. Aneurysm clip versus coil likely at the anterior communicating artery. Chronic left posterior parietal infarct. CSF SPACES: The ventricles, sulci and subarachnoid cisterns are appropriate for age. CALVARIUM, SKULL BASE, PARANASAL SINUSES AND MASTOID AIR CELLS: No fracture. Mastoid air cells are clear. Visualized paranasal sinuses are unremarkable. ORBITS: The globes, extraocular muscles, optic nerves and retrobulbar fat are unremarkable. CT/Brain/Head without Contrast IMPRESSION: No acute intracranial abnormality. Electronically Signed: Cecilio Delacruz DO at 4:42 EST ,
[2024-11-28 03:25] LABS: Absolute Neutrophil Count 5.8 X10^3/uL (2.0-7.7); Basophil# 0.07 X10^3/uL; Basophil% 0.8 % (0-1); Eosinophil# 0.21 X10^3/uL; Eosinophils% 2.3 % (0-5); Hematocrit 40.3 % (37-47); Hemoglobin 13.1 g/dL (12.0-15.0); Mean Corp Hgb Conc 32.5 g/dL (32-36); Mean Corpuscular Hgb 27.1 pg (27.0-32.0); Mean Corpuscular Volume 83.4 fL (81-99); Mean Platelet Vol. 10.2 fl (6.2-12.0); Monocyte# 0.93 X10^3/uL; Monocyte% 10.2 % (0-10); NRBC Flagged by Analyzer 0 % (0-5); Neutrophil # 5.78 X10^3/uL (2.7-7.7); Neutrophil % 63.3 % (47-70); Platelet Count 204 K/mm3 (150-450); RBC Distribution Width CV 15.8 % (11.6-14.6); RBC Distribution Width SD 47.8 fl (35.1-43.9); Red Blood Count 4.83 M/mm3 (4.2-5.4); White Blood Count 9.1 K/mm3 (4.4-11.0)
[2024-11-28] MEDS: HYDROmorphone 1 MG/ML Syringe IV ×2 (03:25→04:28)
[2024-11-28] MEDS: Ondansetron 4 MG/2 ML Vial IV (03:25)
[2024-11-28 03:45] LABS: Anion Gap 7 (5-15); BUN 17 mg/dL (7-18); BUN/Creat Ratio 14.9 RATIO (10-20); Calcium,Total 9.5 mg/dL (8.5-10.1); Chloride 105 mmol/L (98-107); Creatinine, Serum 1.14 mg/dL (0.55-1.02); EST Glomerular Filtration Rate 50 mL/min (>60); Est Glom Filt Rate - Afr Amer 61 mL/min (>60); Estimated Creatinine Clearance 39.22 ml/min; Glucose 107 mg/dL (74-106); Potassium 3.2 mmol/L (3.5-5.1); Sodium Level 138 mmol/L (136-145)
[2024-11-28 04:58] VITALS: BP 138/62; PULSE 61; RESP 13; O2SAT 93
[2024-11-28] MEDS: fentaNYL 100 MCG/2 ML Ampul 50 MCG IV (05:28)
[2024-11-28] MEDS: Gabapentin 800 MG Tablet PO (05:29)
[2024-11-28 05:31] VITALS: BP 138/62; PULSE 60; RESP 15; TEMP 36.6; O2SAT 96
== END 2024-11-28 05:56 | disposition home or self-care (01) ==
PROVIDERS: Emergency Provider Emergency Medicine; PCP Family Medicine; Visit Provider Emergency Medicine
DX: I10 Essential (primary) hypertension (principal); G35 Multiple sclerosis; I48.0 Paroxysmal atrial fibrillation; I25.10 Atherosclerotic heart disease of native coronary artery without angina pectoris; E78.5 Hyperlipidemia, unspecified; G89.4 Chronic pain syndrome; F17.210 Nicotine dependence, cigarettes, uncomplicated; Z79.01 Long term (current) use of anticoagulants; Z79.899 Other long term (current) drug therapy; Z86.73 Personal history of transient ischemic attack (TIA), and cerebral infarction without residual deficits
CPT/HCPCS: 70450; 80048; 85025; 85379; 93005; 96374; 96375; 96376; 99285; A4216; J2405

== ENCOUNTER 2024-12-09 10:10 | Observation (INO) | payer MEDICARE, MEDICAID, SELFPAY ==
[2024-12-09] VITALS (8 sets, daily range): BP systolic 126–175; BP diastolic 80–102; PULSE 70–84; RESP 13–25; TEMP 36.5–36.7; O2SAT 95–99; BMI 26.9; BMI 18.8
--- NOTE | 2024-12-09 10:17 | RAD_ITS ---
STUDY: X-RAY CHEST REASON FOR EXAM: Female, 69 years old. Chest pain TECHNIQUE: Single AP portable view of the chest. COMPARISON: Comparison is made with prior study dated February 19, 2024. FINDINGS: EKG electrodes are seen. Hyperinflation. The lungs are clear. There is no demonstrated pleural abnormality. Normal size heart. Normal mediastinum and david. Normal visualized pulmonary arteries. Normal visualized aortic arch and descending thoracic aorta. There is a dextroscoliosis of the thoracic spine. Normal visualized ribs, clavicles, and shoulders. There is no demonstrated abnormality of the visualized soft tissue structures of the upper abdomen. RAD/Chest 1 View (Portable) IMPRESSION: Hyperinflation. The lungs are clear. Electronically Signed: Jovon Freitas MD at 11:06 EST ,
--- NOTE | 2024-12-09 10:17 | EKG12_ITS ---
Test Reason : HTN Blood Pressure : */* mmHG Vent. Rate : 70 BPM Atrial Rate : 70 BPM P-R Int : 154 ms QRS Dur : 86 ms QT Int : 424 ms P-R-T Axes : 72 56 63 degrees QTcB Int : 457 ms Normal sinus rhythm Possible Left atrial enlargement Borderline ECG Confirmed by ALAN FOX, JOSELITO ([id number]), metropolitan editor SELAM BARRETO ([id number]) on 12/16/2024 6:50:05 AM Referred By: Confirmed By: JOSELITO PHILLIPS MD
--- NOTE | 2024-12-09 10:18 | EX.ED.DYSGE1 ---
HPI History of Present Illness Chief Complaint: Hypertension Narrative Narrative: 69-year-old female past medical history of hypertension, coronary artery disease, smoker, presents with elevated blood pressure. She states that she is having problems controlling her diastolic blood pressure and she can get it below 100. She states that she started having chest pain as well, and blurred vision but no headache. She states this morning she awoke cold sweat. She continues to smoke cigarettes. Her symptoms all began last night/yesterday evening. She is also complaining of her chronic low back pain. She did not take her oxycodone this morning. [facility] Medical History (Updated 12/09/24 @ 15:05 by Carmel Herndon) Depression On home oxygen therapy Atrial fibrillation PAF (paroxysmal atrial fibrillation) Atrial fibrillation Hypothyroidism Smoker Coronary artery disease TIA (transient ischemic attack) Influenza A Nonsustained paroxysmal supraventricular tachycardia Multiple sclerosis Nonobstructive atherosclerosis of coronary artery Peripheral vascular occlusive disease Essential (primary) hypertension Bilateral carotid artery stenosis History of transient ischemic attack (TIA) Fatty liver Thrombocytopenia GERD (gastroesophageal reflux disease) Psoriatic arthritis Psoriasis Osteoporosis Osteoarthritis Goiter Multiple sclerosis HLD (hyperlipidemia) Angina pectoris Chronic pain syndrome Home Medications ?Medication ?Instructions ?Recorded ?Last Taken ?Type cholecalciferol (vitamin D3) 125 5,000 unit PO DAILY supplement 12/16/13 12/01/23 History mcg (5,000 unit) tablet gabapentin 800 mg tablet 800 mg PO TID MS 07/16/18 12/01/23 History baclofen 20 mg tablet 20 mg PO Q6H MS 08/11/21 12/01/23 History levothyroxine 50 mcg tablet 50 mcg PO DAILY thyroid 08/11/21 12/01/23 History oxycodone 10 mg tablet 10 mg PO Q6H PRN pain 05/24/23 12/01/23 History apixaban 5 mg tablet (Eliquis) 5 mg PO BID #60 tabs 01/11/24 Unknown Rx dextromethorphan-guaifenesin ER 60 1 tab PO Q12H PRN cough/congest 02/19/24 Unknown History mg-1,200 mg tab,extend release,12hr (Mucinex DM) amlodipine 5 mg tablet (Norvasc) 5 mg PO QDAY #90 tabs 11/24/24 Unknown Rx famotidine 40 mg tablet 40 mg PO QDAY PRN indigestion 11/24/24 Unknown History lisinopril 10 mg tablet 10 mg PO BID 11/24/24 Unknown History Allergy/AdvReac Type Severity Reaction Status Date / Time colestipol (From Colestid) Allergy Mild unknown Verified 12/09/24 10:18 pregabalin (From Lyrica) Allergy Mild Hives Verified 12/09/24 10:18 amitriptyline Allergy Rash Verified 12/09/24 10:18 temazepam (From Restoril) AdvReac Mild Nausea/Vom/ Verified 12/09/24 10:18 Diarrhea Antihistamines - Alkylamine AdvReac Nausea/Vom/ Verified 12/09/24 10:18 Diarrhea Antihistamines - Ethanolamine AdvReac Nausea/Vom/ Verified 12/09/24 10:18 Diarrhea Antihistamines - AdvReac Nausea/Vom/ Verified 12/09/24 10:18 Ethylenediamine Diarrhea Antihistamines - Piperazine AdvReac Nausea/Vom/ Verified 12/09/24 10:18 Diarrhea Antihistamines - Piperidine AdvReac Nausea/Vom/ Verified 12/09/24 10:18 Diarrhea aspirin AdvReac I'M ON Verified 12/09/24 10:18 BLOOD THINNERS codeine AdvReac Nausea Verified 12/09/24 10:18 Corticosteroids AdvReac Upset Verified 12/09/24 10:18 (Glucocorticoids) Stomach morphine AdvReac Nausea Verified 12/09/24 10:18 Wkwzbqo-QPE-PoS Reductase AdvReac Nausea Verified 12/09/24 10:18 Inhibitor (Vtutdap-Bdd-Rud Reductase Inhibitor) Family History Mother Cancer CAD (coronary artery disease) Brain tumor Grandfather CVA (cerebral vascular accident) Father CAD (coronary artery disease) Ruptured abdominal aortic aneurysm (AAA) Sister Brain aneurysm Surgical History (Updated 12/09/24 @ 15:04 by Carmel Herndon) History of coronary artery stent placement History of appendectomy History of cholecystectomy History of angioplasty of peripheral vessel (07/11/19) Stenosis of left subclavian artery History of left heart catheterization (01/25/15) S/P coil embolization of cerebral aneurysm History of angioplasty of peripheral vessel History of right-sided carotid endarterectomy History of left-sided carotid endarterectomy History of partial thyroidectomy (11/30/05) History of hemorrhoidectomy History of hysterectomy History of section Brain aneurysm Fracture of right lower leg S/P insertion of iliac artery stent History of left breast biopsy H/O hemorrhoidectomy S/P hysterectomy H/O: S/P thyroidectomy Social History household members: none housing: apartment Smoking Status: Current every day smoker tobacco type: cigarettes alcohol intake: never caffeine: Yes Type: coffee and tea ROS ROS ED ROS Narrative Constitutional: No fever, no chills. Elevated diastolic blood pressure. HEENT: No sore throat. No neck pain. Positive blurred vision. No rhinorrhea. Cardiovascular: Positive chest pain. No palpitations. No pedal edema. Respiratory: No cough, no shortness of breath. Abdominal: No abdominal pain. Positive nausea. No vomiting. Genitourinary: No dysuria. No hematuria. Musculoskeletal: No myalgias. No arthralgias. Positive low back pain, chronic. Neurologic: No headaches. No dizziness. No lightheadedness. Skin: No rash. No change in color. Psychiatric: No depression. No anxiety. EXAM Physical Exam Narrative Exam Narrative: Afebrile. Vital signs noted. HEENT: Normocephalic. Atraumatic. PERRL, EOMI. Neck soft and supple. No point tenderness or step off. Cardiovascular: Regular rate and rhythm. Respiratory: No tachypnea. Lungs clear to auscultation bilaterally. Gastrointestinal: Abdomen soft, nontender, with normoactive bowel sounds. No rebound or guarding. Neurological: Awake. Alert. Nonfocal, nonlateralizing. Skin: No rash. Normal color. No pallor. Musculoskeletal: No pedal edema. Full range of motion extremities. Const Vital Signs: 12/09/24 10:10 12/09/24 10:17 12/09/24 10:19 Temperature 97.8 F Temperature Source Oral Pulse Rate 74 Respiratory Rate 13 Respiratory Effort Normal Non-Labored Respiratory Pattern Normal Blood Pressure Blood Pressure Mean Pulse Ox 95 98 Oxygen Delivery Method Room Air Room Air 12/09/24 10:19 12/09/24 12:10 12/09/24 14:08 Temperature 98 F Temperature Source Pulse Rate 70 75 84 Respiratory Rate 13 16 25 H Respiratory Effort Respiratory Pattern Blood Pressure 162/95 H 175/100 H 138/88 H Blood Pressure Mean 117 125 104 Pulse Ox 97 96 98 Oxygen Delivery Method Room Air Room Air MDM MDM MDM Narrative Medical decision making narrative: Differential diagnosis includes but not limited to ACS versus pneumonia versus pneumothorax. She is having exacerbation of her chronic low back pain and she is no longer having chest pain. I reviewed the patient's laboratory work and she has normal white count of 9.6 with hemoglobin 13.5 and hematocrit 41.9, platelet count normal at 191. Sodium normal at 138 with potassium 3.8 and chloride 104. Electrolyte panel significant for creatinine of 1.26. Her initial troponin was 91 with repeat a 2-hour 74. I do not think this is necessarily from her elevated chronic kidney disease as in the past she had normal troponins and other times slightly elevated. EKG interpreted by myself independently demonstrates normal sinus rhythm without acute ST changes. There is slight loss of concavity in the precordial leads, especially V4 and V5, but no acute ST changes or ST elevation where I think she requires emergent catheterization. Additionally, she is not having chest pain currently. She is complaining more of her chronic low back pain and usually takes oxycodone which she did not take this morning so she was given a dose of that. Chest x-ray 1 view interpreted by myself independently shows no evidence of pneumonia or pneumothorax. I reviewed the radiology report which confirms my independent interpretation. Additionally, as she was complaining of blurry vision, in order to rule out intracranial hemorrhage CT of the brain was obtained and I reviewed the radiology report. There is no evidence of acute hemorrhage or acute process. There is encephalomalacia and evidence of an aneurysmal clip. Given her elevated troponins, as she was aspirin as an allergy and states that she is already on blood thinners, and in review of her medication list she is on Eliquis, I do not feel that she requires heparin. I discussed patient with Dr. Tyler for observation in the PCU. Patient is in stable condition. History & Record Review Discussion w/independent historian: Patient Lab Data Attestation: I reviewed the patient's lab results. Labs: Laboratory Results - last 24 hr 12/09/24 12/09/24 10:10 12:35 WBC 9.6 RBC 4.97 Hgb 13.5 Hct 41.9 MCV 84.3 MCH 27.2 MCHC 32.2 RDW Std Deviation 48.3 H RDW Coeff of [place] 15.7 H Plt Count 191 MPV 10.2 Immature Gran % (Auto) 0.600 Neut % (Auto) 82.2 H Lymph % (Auto) 8.7 L [place] % (Auto) 6.8 Eos % (Auto) 1.1 Baso % (Auto) 0.6 Absolute Neuts (auto) 7.9 H Absolute Lymphs (auto) 0.84 Nucleated RBC % 0 Sodium 138 Potassium 3.8 Chloride 104 Carbon Dioxide 26.0 Anion Gap 8 BUN 18 Creatinine 1.26 H Estim Creat Clear Calc 29.84 Est GFR (MDRD) Af Amer 54 L Est GFR (MDRD) Non-Af 45 L BUN/Creatinine Ratio 14.3 Glucose 118 H Calcium 9.8 Magnesium 2.3 Troponin I High Sens 91 H 74 H Radiography Diagnostic Testing: Clinical Impression(s) from Imaging Studies Chest X-Ray 12/09/24 10:17 IMPRESSION: Hyperinflation. The lungs are clear. Electronically Signed: Jovon Freitas MD at 11:06 EST , Brain CT 12/09/24 10:50 IMPRESSION: Stable old encephalomalacia in the left posterior parietal lobe. Aneurysmal clip seen in the anterior aspect of the [place]. Electronically Signed: Jovon Freitas MD at 11:07 EST , Management Discussion w/another healthcare provider: Hospitalist Discharge Plan Dx/Rx/DC Orders Clinical Impression: Chest pain, Elevated troponin, Diastolic hypertension, Nicotine dependence, cigarettes, uncomplicated, Chronic low back pain Disposition Disposition: Acute Care Hospital [facility] Discharge Date/Time: 12/09/24 14:44
[2024-12-09 10:39] LABS: Absolute Lymphocyte Count 0.84 X10^3/uL (0.83-4.51); Absolute Neutrophil Count 7.9 X10^3/uL (2.0-7.7); Basophil# 0.06 X10^3/uL; Basophil% 0.6 % (0-1); Eosinophil# 0.11 X10^3/uL; Eosinophils% 1.1 % (0-5); Hematocrit 41.9 % (37-47); Hemoglobin 13.5 g/dL (12.0-15.0); Lymphocyte # 0.84 X10^3/ul (0.83-4.51); Lymphocyte % 8.7 % (19-41); Mean Corp Hgb Conc 32.2 g/dL (32-36); Mean Corpuscular Hgb 27.2 pg (27.0-32.0); Mean Corpuscular Volume 84.3 fL (81-99); Mean Platelet Vol. 10.2 fl (6.2-12.0); Monocyte# 0.66 X10^3/uL; Monocyte% 6.8 % (0-10); NRBC Flagged by Analyzer 0 % (0-5); Neutrophil # 7.91 X10^3/uL (2.7-7.7); Neutrophil % 82.2 % (47-70); Platelet Count 191 K/mm3 (150-450); RBC Distribution Width CV 15.7 % (11.6-14.6); RBC Distribution Width SD 48.3 fl (35.1-43.9); Red Blood Count 4.97 M/mm3 (4.2-5.4); White Blood Count 9.6 K/mm3 (4.4-11.0)
--- NOTE | 2024-12-09 10:50 | CT_ITS ---
STUDY: CT BRAIN WITHOUT CONTRAST REASON FOR EXAM: Female, 69 years old. Blurred vision RADIATION DOSAGE (If Supplied By Facility): CTDIvol = ( 44.99 ) mGy, DLP = ( 812.98 ) mGycm TECHNIQUE: Transaxial CT imaging of the brain was performed without administration of intravenous contrast material. Individualized dose optimization techniques were used for this CT. COMPARISON: Comparison is made with prior study dated November 28, 2024. FINDINGS: Normal soft tissue structures. Normal calvarium. There is mild cerebral atrophy with widening of the extra-axial spaces and ventricular dilatation. Normal white matter tracts of the cerebral hemispheres. Normal basal ganglia and thalami. Normal brainstem. Normal cerebellum. There is no intracranial hemorrhage. There are no findings of an acute ischemic infarction. Aneurysmal clip versus coiled once again seen in the region of the anterior communicating artery. Stable focal Ancef malacia in the left posterior parietal lobe. Normal visualized paranasal sinuses. CT/Brain/Head without Contrast IMPRESSION: Stable old encephalomalacia in the left posterior parietal lobe. Aneurysmal clip seen in the anterior aspect of the [place]. Electronically Signed: Jovon Freitas MD at 11:07 EST ,
[2024-12-09 10:55] LABS: Anion Gap 8 (5-15); BUN 18 mg/dL (7-18); BUN/Creat Ratio 14.3 RATIO (10-20); Calcium,Total 9.8 mg/dL (8.5-10.1); Chloride 104 mmol/L (98-107); Creatinine, Serum 1.26 mg/dL (0.55-1.02); EST Glomerular Filtration Rate 45 mL/min (>60); Est Glom Filt Rate - Afr Amer 54 mL/min (>60); Estimated Creatinine Clearance 29.84 ml/min; Glucose 118 mg/dL (74-106); Magnesium 2.3 mg/dL (1.6-2.6); Potassium 3.8 mmol/L (3.5-5.1); Sodium Level 138 mmol/L (136-145); Troponin-I HS (w/2H Reflex) 91 pg/mL (3.0-54.0)
[2024-12-09 12:31] LABS: Reflex Troponin-HS? (from REC) Y
[2024-12-09 13:09] LABS: Troponin-I HS 74 pg/mL (3.0-54.0)
[2024-12-09] MEDS: oxyCODONE 5 MG Tablet PO (14:08)
--- NOTE | 2024-12-09 14:31 | PCM.HP.STD ---
HPI - General General Date of Admission: 12/09/24 Date of Service: 12/09/24 Chief Complaint: High blood pressure HPI Narrative ADY WALLER, is a 69y/o F hx of HTN, mild CAD, tobacco use, bilateral carotid endarterectomy, right carotid bypass and right common iliac stent, TIA, pafib, GERD, MS, hypothyroidism, who presented to [facility] ED 12/09/24 w/ concerns for elevated BP. Since yesterday she has been having problems controlling diastolic function w/ it remaining over 100. She subsequently started having left arm pain and some blurred vision, did have a cold sweat earlier this AM as well. In the ED initial BP 162/95 and repeat 175/100, pt found to have initial trop of 91 which down trended to 74. Lab workup otherwise fairly benign. Given her elevated troponin hospitalist contacted for admission. Patient evaluated at bedside and reports that she has been feeling somewhat unwell since yesterday with some intermittent blurry/double vision in her eyes and some headaches that do seem to get better when her blood pressure goes down. Additionally today she was feeling little bit of cold sweats and some left arm pain and left lateral chest wall pain. The left arm is having a burning sensation from the shoulder down to her fingers and is worse with palpation, additionally feels she pulled a muscle in the left lateral chest wall but denies any overt chest pain, sometimes will get some shortness of breath, does have intermittent cough and takes Mucinex but she thinks this is somewhat due to the dry air in her apartment. She also reports some intermittent constipation from the medication she takes at home for pain and that she has to take a laxative at least a couple times a week, is also noted some bright red blood in her stool over the past couple of weeks and reports she previously had some polyps in her colon and something that she thinks was bleeding in her stomach that was addressed earlier this year. No dark blood appreciated. [facility] Medical History PAF (paroxysmal atrial fibrillation) Atrial fibrillation Hypothyroidism Smoker Coronary artery disease TIA (transient ischemic attack) Influenza A Nonsustained paroxysmal supraventricular tachycardia Multiple sclerosis Nonobstructive atherosclerosis of coronary artery Peripheral vascular occlusive disease Essential (primary) hypertension Bilateral carotid artery stenosis History of transient ischemic attack (TIA) Fatty liver Thrombocytopenia GERD (gastroesophageal reflux disease) Psoriatic arthritis Psoriasis Osteoporosis Osteoarthritis Goiter Multiple sclerosis HLD (hyperlipidemia) Angina pectoris Chronic pain syndrome Home Medications ?Medication ?Instructions ?Recorded ?Last Taken ?Type cholecalciferol (vitamin D3) 125 5,000 unit PO DAILY supplement 12/16/13 12/01/23 History mcg (5,000 unit) tablet gabapentin 800 mg tablet 800 mg PO TID MS 07/16/18 12/01/23 History baclofen 20 mg tablet 20 mg PO Q6H MS 08/11/21 12/01/23 History levothyroxine 50 mcg tablet 50 mcg PO DAILY thyroid 08/11/21 12/01/23 History oxycodone 10 mg tablet 10 mg PO Q6H PRN pain 05/24/23 12/01/23 History apixaban 5 mg tablet (Eliquis) 5 mg PO BID #60 tabs 01/11/24 Unknown Rx dextromethorphan-guaifenesin ER 60 1 tab PO Q12H PRN cough/congest 02/19/24 Unknown History mg-1,200 mg tab,extend release,12hr (Mucinex DM) amlodipine 5 mg tablet (Norvasc) 5 mg PO QDAY #90 tabs 11/24/24 Unknown Rx famotidine 40 mg tablet 40 mg PO QDAY PRN indigestion 11/24/24 Unknown History lisinopril 10 mg tablet 10 mg PO BID 11/24/24 Unknown History rosuvastatin 10 mg tablet 10 mg PO QDAY #90 tabs 11/24/24 Unknown Rx Allergy/AdvReac Type Severity Reaction Status Date / Time colestipol (From Colestid) Allergy Mild unknown Verified 12/09/24 10:18 pregabalin (From Lyrica) Allergy Mild Hives Verified 12/09/24 10:18 amitriptyline Allergy Rash Verified 12/09/24 10:18 temazepam (From Restoril) AdvReac Mild Nausea/Vom/ Verified 12/09/24 10:18 Diarrhea Antihistamines - Alkylamine AdvReac Nausea/Vom/ Verified 12/09/24 10:18 Diarrhea Antihistamines - Ethanolamine AdvReac Nausea/Vom/ Verified 12/09/24 10:18 Diarrhea Antihistamines - AdvReac Nausea/Vom/ Verified 12/09/24 10:18 Ethylenediamine Diarrhea Antihistamines - Piperazine AdvReac Nausea/Vom/ Verified 12/09/24 10:18 Diarrhea Antihistamines - Piperidine AdvReac Nausea/Vom/ Verified 12/09/24 10:18 Diarrhea aspirin AdvReac I'M ON Verified 12/09/24 10:18 BLOOD THINNERS codeine AdvReac Nausea Verified 12/09/24 10:18 Corticosteroids AdvReac Upset Verified 12/09/24 10:18 (Glucocorticoids) Stomach morphine AdvReac Nausea Verified 12/09/24 10:18 Tbxzgnm-CML-DoV Reductase AdvReac Nausea Verified 12/09/24 10:18 Inhibitor (Kuyoexu-Dit-Utq Reductase Inhibitor) Family History Mother Cancer CAD (coronary artery disease) Brain tumor Grandfather CVA (cerebral vascular accident) Father CAD (coronary artery disease) Ruptured abdominal aortic aneurysm (AAA) Sister Brain aneurysm Surgical History History of appendectomy History of cholecystectomy History of angioplasty of peripheral vessel (07/11/19) Stenosis of left subclavian artery History of left heart catheterization (01/25/15) S/P coil embolization of cerebral aneurysm History of angioplasty of peripheral vessel History of right-sided carotid endarterectomy History of left-sided carotid endarterectomy History of partial thyroidectomy (11/30/05) History of hemorrhoidectomy History of hysterectomy History of section Brain aneurysm Fracture of right lower leg S/P insertion of iliac artery stent History of left breast biopsy H/O hemorrhoidectomy S/P hysterectomy H/O: S/P thyroidectomy Social History household members: none housing: apartment Smoking Status: Current every day smoker tobacco type: cigarettes alcohol intake: never caffeine: Yes Type: coffee and tea ROS ROS Narrative General: Feels generally weak and unwell HENT: Intermittent headaches intermittent sore throat EYES: Some intermittent blurry and double vision Resp: Intermittent cough, shortness of breath at times Cardiac: Denies chest pain GI: Some intermittent abdominal discomfort, constipation, some blood in stool Extremity: Has sore extremities and joints MSK: Some generalized weakness Neuro: Has MS at baseline reports she has chronic problems Heme: Some blood in stool Skin: Denies rashes Psychiatric: Feeling frustrated Vital Signs Vital Signs Vital Signs: 12/09/24 10:10 12/09/24 10:17 12/09/24 10:19 Temperature 97.8 F Temperature Source Oral Pulse Rate 74 Respiratory Rate 13 Respiratory Effort Normal Non-Labored Respiratory Pattern Normal Blood Pressure Blood Pressure Mean Pulse Ox 95 98 Oxygen Delivery Method Room Air Room Air 12/09/24 10:19 12/09/24 12:10 12/09/24 14:08 Temperature 98 F Temperature Source Pulse Rate 70 75 84 Respiratory Rate 13 16 25 H Respiratory Effort Respiratory Pattern Blood Pressure 162/95 H 175/100 H 138/88 H Blood Pressure Mean 117 125 104 Pulse Ox 97 96 98 Oxygen Delivery Method Room Air Room Air Weight Weight: 54.431 kg Body Mass Index (BMI) 26.9 Physical Exam Narrative General: Alert, oriented HEENT: Atraumatic, normocephalic Eyes: Anicteric, normal conjunctiva, extraocular movements grossly intact Neck: Supple Respiratory: No significant wheezes or rhonchi, normal respiratory effort Cardiovascular: Regular rate and rhythm GI: Soft, no rebound, guarding, rigidity Extremities: No edema Musculoskeletal: Moving all extremities, patient reports pain on general palpation multiple areas including left arm Neuro: No overt new focal neurological deficits reported Skin: No rashes appreciated Psych: Patient frustrated Results Lab / Micro Data 12/09/24 10:10 12/09/24 10:10 Labs: Laboratory Results - last 24 hr 12/09/24 10:10: WBC 9.6, RBC 4.97, Hgb 13.5, Hct 41.9, MCV 84.3, MCH 27.2, MCHC 32.2, RDW Std Deviation 48.3 H, RDW Coeff of [place] 15.7 H, Plt Count 191, MPV 10.2, Immature Gran % (Auto) 0.600, Neut % (Auto) 82.2 H, Lymph % (Auto) 8.7 L, [place] % (Auto) 6.8, Eos % (Auto) 1.1, Baso % (Auto) 0.6, Absolute Neuts (auto) 7.9 H, Absolute Lymphs (auto) 0.84, Nucleated RBC % 0, Sodium 138, Potassium 3.8, Chloride 104, Carbon Dioxide 26.0, Anion Gap 8, BUN 18, Creatinine 1.26 H, Estim Creat Clear Calc 29.84, Est GFR (MDRD) Af Amer 54 L, Est GFR (MDRD) Non-Af 45 L, BUN/Creatinine Ratio 14.3, Glucose 118 H, Calcium 9.8, Magnesium 2.3, Troponin I High Sens 91 H 12/09/24 12:35: Troponin I High Sens 74 H Imaging Radiology Impression Chest X-Ray 12/09/24 10:17 IMPRESSION: Hyperinflation. The lungs are clear. Electronically Signed: Jovon Freitas MD at 11:06 EST , Brain CT 12/09/24 10:50 IMPRESSION: Stable old encephalomalacia in the left posterior parietal lobe. Aneurysmal clip seen in the anterior aspect of the [place]. Electronically Signed: Jovon Freitas MD at 11:07 EST , Assessment & Plan Assessment/Plan (1) Elevated troponin: PLAN: Plan #elevated troponin, unclear type I vs type II NSTEMI -Initial trop 91 w/ repeat downtrend to 74 -May have been d/t her HTN but cannot say definitively -Patient has left arm pain but this is reproducible on exam, additionally has almost matthew positive ROS so very difficult to tell what may be cardiac related or not -EKG patient has some V4 and V5 concavity and this is similar to November 28 EKG and troponins downtrending -Admit to telemetry -Echo ordered -Aspirin -Statin -Lipid panel in AM -Stress test ordered for AM #HTN -Accelerated hypertension versus hypertensive emergency, patient reports very high blood pressures at home, somewhat lower here -Continue home blood pressure medication and adjust as needed -Will add prn medication in the meantime # Reportedly blood in stool -Patient reports blood in stool for the past several weeks, she is on Eliquis and aspirin, given elevated biomarkers with stable hemoglobin feel risks of holding these medications outweigh benefits -Will check fecal occult and repeat hemoglobin in the a.m. -Inpatient versus outpatient GI evaluation -Will place patient on IV PPI at this time while awaiting results given her reports of previous upper GI problems #Hx mild CAD/Hx TIA/bilateral carotid endarterectomy/ight carotid bypass/ right common iliac stent -Continue statin and Eliquis -Follow w/ Dr. Nava for her vascular disease #Hx stage III diastolic dysfunction -On previous echo -Noted #pAfib -Continue Eliquis -Not presently on rate control #MS -On baclofen and gabapentin at home as well as chronic pain medication -Continue home medications #GERD -PPI #Hypothyroidism -Continue Synthroid #Tobacco use -Advise cessation -Nicotine replacement available if desired, presently refused #DVT ppx: Plan to continue home Eliquis at this time given stable hemoglobin Trina Tyler MD Charges/Coding Visit Charges Inpatient E&M: 14558 Init Hosp L2
--- NOTE | 2024-12-09 14:58 | ECHOCS_ITS ---
Reason For Study: Elevated Troponin Procedure This was a 2D Doppler, Color Flow transthoracic echocardiogram. Contrast injection was performed. Exam performed portable in patient room. Left Ventricle Normal LV size. The estimated ejection fraction is 60 %. Unable to assess diastolic dysfunction. Mulga : Akinetic. Right Ventricle Normal RV size. Normal systolic function. Atria The left atrium is mildly enlarged. Normal right atrium. No doppler evidence for ASD. Mitral Valve Mitral valve doming/Hockey Sticking. Equivocal mitral valve prolapse, anterior leaflet. Moderate to severe mitral stenosis by pressure gradient. Mild (1+) mitral valve insufficiency. Tricuspid Valve There is no tricuspid stenosis. Pulmonary artery systolic pressure is 65 mmHg. Mild tricuspid valve insufficiency. Aortic Valve Trisinus/trileaflet aortic valve. There is no aortic stenosis. No aortic valve insufficiency. Pulmonic Valve There is no pulmonic valvular stenosis. Trivial pulmonic valve insufficiency. Great Vessels Normal aortic root. Pericardium/Pleural No pericardial effusion. Medication Diluted definity 1.5ml given slow IV push to enhance endocardial definition. MMode/2D Measurements & Calculations LVIDd: 4.3 cm IVSd: 0.90 cm Ao root diam: 2.8 cm LVIDs: 2.4 cm LVPWd: 0.65 cm RVDd: 2.7 cm FS: 44.7 % LAV(MOD-bp): 58.9 ml LVAd ap4: 29.0 cm2 SV(MOD-sp4): 67.5 ml LAV(MOD-bp) Indexed: 41.1 ml/m2 LVLd ap4: 7.7 cm SI(MOD-sp4): 47.1 ml/m2 LAV(MOD-sp2): 68.2 ml EDV(MOD-sp4): 91.9 ml LAV(MOD-sp4): 44.0 ml EDV(sp4-el): 93.5 ml LVAs ap4: 14.2 cm2 LVLs ap4: 6.8 cm ESV(MOD-sp4): 24.4 ml ESV(sp4-el): 25.1 ml EF(MOD-sp4): 73.5 % EF(sp4-el): 73.2 % SV(sp4-el): 68.4 ml LA A4 area: 19.6 cm2 LA dimension(2D): 4.0 cm RA A4 area: 10.3 cm2 TAPSE: 2.3 cm Time Measurements MV dec time: 0.51 sec Doppler Measurements & Calculations MV E max sony: 148.9 cm/sec Lat Peak E' Sony: 3.8 cm/sec Med Peak E' Sony: 4.3 cm/sec MV A max sony: 174.0 cm/sec E/E' lat: 39.5 E/E' med: 34.5 MV E/A: 0.86 MV V2 max: 217.6 cm/sec MV dec slope: 289.7 cm/sec2 Ao V2 max: 139.0 cm/sec MV max P.0 mmHg Ao max P.7 mmHg MV V2 mean: 155.8 cm/sec Ao V2 mean: 99.8 cm/sec MV mean P.3 mmHg Ao mean P.4 mmHg MV V2 VTI: 73.6 cm Ao V2 VTI: 36.1 cm AV (velocity ratio): 0.80 LV V1 max: 118.7 cm/sec PA V2 max: 91.8 cm/sec TR max sony: 389.9 cm/sec LV V1 max P.6 mmHg TR max P.8 mmHg LV V1 mean P.2 mmHg LV V1 mean: 83.3 cm/sec LV V1 VTI: 29.0 cm ECHO/Echo Complete W/ Contrast Interpretation Summary The estimated ejection fraction is 60 %. Unable to assess diastolic dysfunction. The left atrium is mildly enlarged. Mild (1+) mitral valve insufficiency. Moderate to severe mitral stenosis by pressure gradient Ordering Physician: Trina Tyler Referring Physician: Daron Benton Performed By: Noa Peace, MARY, RVT
--- NOTE | 2024-12-09 14:58 | EKG12_ITS ---
Test Reason : EKG CHANGES Blood Pressure : */* mmHG Vent. Rate : 69 BPM Atrial Rate : 69 BPM P-R Int : 172 ms QRS Dur : 92 ms QT Int : 442 ms P-R-T Axes : 74 58 60 degrees QTcB Int : 473 ms Normal sinus rhythm Possible Left atrial enlargement Borderline ECG When compared with ECG of 09-Dec-2024 15:52, MANUAL COMPARISON REQUIRED DATA IS UNCONFIRMED Confirmed by ALAN FOX, JOSELITO ([id number]), slot editor ADI CORDERO ([id number]) on 12/15/2024 2:18:08 PM Referred By: HOLLEY Confirmed By: JOSELITO PHILLIPS MD
--- NOTE | 2024-12-09 15:59 | NURSING ---
ekg sent to dr. mccarthy concerning for sl changes for poss ant infarct. pt receiving echo at this time. charge master specialist aware. pt on 2l nc
--- NOTE | 2024-12-09 16:18 | EKG12_ITS ---
Test Reason : AM EKG Blood Pressure : */* mmHG Vent. Rate : 59 BPM Atrial Rate : 59 BPM P-R Int : 166 ms QRS Dur : 100 ms QT Int : 494 ms P-R-T Axes : 72 35 57 degrees QTcB Int : 489 ms Sinus bradycardia Possible Left atrial enlargement Minimal voltage criteria for LVH, may be normal variant ( Gordon product ) ST elevation, consider early repolarization, pericarditis, or injury T wave abnormality, consider anterior ischemia Prolonged QT Abnormal ECG When compared with ECG of 09-Dec-2024 16:37, MANUAL COMPARISON REQUIRED DATA IS UNCONFIRMED Confirmed by ALAN FOX, JOSELITO ([id number]), fashion editor ADI CORDERO ([id number]) on 12/15/2024 2:17:49 PM Referred By: Confirmed By: JOSELITO PHILLIPS MD
[2024-12-09] MEDS: Pantoprazole Sodium 40 MG in 0.9% Normal Saline (100mL MB+) 100 ML 330 MG IV (16:30)
[2024-12-09] MEDS: 0.9% Normal Saline (100mL Bag) 100 ML 15 ML IV (16:32)
[2024-12-09 16:53] LABS: Troponin-I HS 72 pg/mL (3.0-54.0)
[2024-12-09] MEDS: Gabapentin 800 MG Tablet PO ×2 (17:13→20:48)
[2024-12-09] MEDS: amLODIPine 5 MG Tablet PO (17:13)
[2024-12-09] MEDS: oxyCODONE 5 MG Tablet 10 MG PO ×2 (17:14→23:19)
[2024-12-09] MEDS: Baclofen 10 MG Tablet 20 MG PO (17:40)
--- NOTE | 2024-12-09 17:52 | PN.HOSP_ITS ---
Hospitalist Note Patient's admission EKG queried some possible changes in lateral leads, repeat EKG shortly thereafter appeared somewhat improved and troponin had continued to downtrend to 72. Patient's presentation overall somewhat atypical with left arm pain that had not changed or worsened even with downtrending troponins and was reproducible on palpation. Given the previous this was discussed with cardiology. Given atypical presentation with continued downtrending troponins and questionable EKG changes was felt the patient did not need emergent evalu ation/intervention however would benefit from cardiac cath over stress test especially given preliminary echo results seem to have wall motion abnormalities of the apex, unclear if this may be Takotsubo or not, no need for heparin gtt at this time, holding eliquis. Patient n.p.o. at midnight, stress test DC'd, cardiology consult placed
[2024-12-09] MEDS: Lisinopril 10 MG Tablet PO (20:45)
[2024-12-09] MEDS: Senna/Docusate Sodium 1 Tablet 2 TABLET PO (20:46)
[2024-12-10] VITALS (15 sets, daily range): BP systolic 123–181; BP diastolic 72–127; PULSE 51–65; RESP 16–18; TEMP 36–36.6; O2SAT 92–98
[2024-12-10] MEDS: 0.9% Saline Lock 10 ML Syringe IV (02:37)
[2024-12-10] MEDS: Levothyroxine 50 MCG Tablet PO (05:21)
[2024-12-10] MEDS: amLODIPine 5 MG Tablet PO (05:21)
[2024-12-10] MEDS: Lisinopril 10 MG Tablet PO ×2 (05:21→20:12)
[2024-12-10] MEDS: oxyCODONE 5 MG Tablet 10 MG PO ×3 (05:21→17:58)
[2024-12-10] MEDS: Gabapentin 800 MG Tablet PO ×3 (05:21→20:12)
--- NOTE | 2024-12-10 05:55 | EKG12_ITS ---
Test Reason : INCREASED TROP ONN ARRIVAL Blood Pressure : */* mmHG Vent. Rate : 67 BPM Atrial Rate : 67 BPM P-R Int : 158 ms QRS Dur : 88 ms QT Int : 448 ms P-R-T Axes : * 122 147 degrees QTcB Int : 473 ms Normal sinus rhythm Low voltage QRS Left posterior fascicular block Cannot rule out Anterior infarct , age undetermined Abnormal ECG When compared with ECG of 09-Dec-2024 10:32, MANUAL COMPARISON REQUIRED DATA IS UNCONFIRMED Confirmed by ALAN FOX, JOSELITO ([id number]), news videotape editor ADI CORDERO ([id number]) on 12/15/2024 2:14:11 PM Referred By: HOLLEY Confirmed By: JOSELITO PHILLIPS MD
[2024-12-10 06:44] LABS: Absolute Lymphocyte Count 0.76 X10^3/uL (0.83-4.51); Absolute Neutrophil Count 5.7 X10^3/uL (2.0-7.7); Basophil# 0.05 X10^3/uL; Basophil% 0.7 % (0-1); Eosinophil# 0.11 X10^3/uL; Eosinophils% 1.5 % (0-5); Hematocrit 37.9 % (37-47); Hemoglobin 12.2 g/dL (12.0-15.0); Lymphocyte # 0.76 X10^3/ul (0.83-4.51); Lymphocyte % 10.6 % (19-41); Mean Corp Hgb Conc 32.2 g/dL (32-36); Mean Corpuscular Volume 83.8 fL (81-99); Mean Platelet Vol. 9.7 fl (6.2-12.0); Monocyte# 0.53 X10^3/uL; Monocyte% 7.4 % (0-10); NRBC Flagged by Analyzer 0 % (0-5); Neutrophil # 5.71 X10^3/uL (2.7-7.7); Neutrophil % 79.4 % (47-70); Platelet Count 175 K/mm3 (150-450); RBC Distribution Width CV 15.3 % (11.6-14.6); RBC Distribution Width SD 46.5 fl (35.1-43.9); Red Blood Count 4.52 M/mm3 (4.2-5.4); White Blood Count 7.2 K/mm3 (4.4-11.0)
[2024-12-10 07:24] LABS: Anion Gap 9 (5-15); BUN 23 mg/dL (7-18); BUN/Creat Ratio 22.3 RATIO (10-20); Calcium,Total 9.2 mg/dL (8.5-10.1); Chloride 103 mmol/L (98-107); Cholesterol 189 mg/dL (200); Creatinine, Serum 1.03 mg/dL (0.55-1.02); EST Glomerular Filtration Rate 56 mL/min (>60); Est Glom Filt Rate - Afr Amer 68 mL/min (>60); Estimated Creatinine Clearance 41.32 ml/min; Glucose 85 mg/dL (74-106); High Density Lipoprotein 49 mg/dL; Potassium 3.8 mmol/L (3.5-5.1); Sodium Level 138 mmol/L (136-145); Thyroid Stim Hormone (TSH) 0.715 uIU/mL (0.358-3.740); Triglycerides 106 mg/dL; Very Low Density Lipoprotein 21 mg/dL (5-40)
--- NOTE | 2024-12-10 09:09 | CASEMGMT ---
YAW received a voice mail from Tena Santoro, casework manager with [employer]. Tena's phone number is [phone] and fax is [phone]. Patient has an aide for 4 hours every Sunday and 2 hours every other Sunday. Patient also has a medical alert button. Tena would like a return call regarding patient and d/c plans. Lizbeth WINN
[2024-12-10] MEDS: Pantoprazole Sodium 40 MG in 0.9% Normal Saline (100mL MB+) 100 ML 330 MG IV (09:47)
--- NOTE | 2024-12-10 11:56 | NURSING ---
Report called to EVERT Mccloud for pt to go to [facility].
--- NOTE | 2024-12-10 12:12 | CON.PCM.CA_ITS ---
Assessment & Plan Assessment/Plan (1) Elevated troponin: PLAN: Patient also has apical wall motion abnormality in addition. We will proceed with coronary angiography. Risks and benefits of treatment options discussed with the patient in detail. Patient wishes to proceed. HPI Consult Data Date of Consult: 12/10/24 HPI Narrative Reason for Consultation: Abnormal EKG, abnormal echo HPI Narrative: ADY WALLER, is a 69 F who presents because her blood pressure at home was very high. Patient states that she was having pain in her lower back and also her left arm. She denied any chest pain. The left arm pain has now resolved. Patient's EKG was concerning for anterior transmural ischemia. Troponin continued to remain in the indeterminate range.. Patient continued to remain chest pain-free. 2D echo revealed akinesis of the apex. Other mayes were moving well. [facility] Medical History (Updated 12/09/24 @ 15:05 by Carmel Herndon) Depression On home oxygen therapy Atrial fibrillation PAF (paroxysmal atrial fibrillation) Atrial fibrillation Hypothyroidism Smoker Coronary artery disease TIA (transient ischemic attack) Influenza A Nonsustained paroxysmal supraventricular tachycardia Multiple sclerosis Nonobstructive atherosclerosis of coronary artery Peripheral vascular occlusive disease Essential (primary) hypertension Bilateral carotid artery stenosis History of transient ischemic attack (TIA) Fatty liver Thrombocytopenia GERD (gastroesophageal reflux disease) Psoriatic arthritis Psoriasis Osteoporosis Osteoarthritis Goiter Multiple sclerosis HLD (hyperlipidemia) Angina pectoris Chronic pain syndrome Home Medications ?Medication ?Instructions ?Recorded ?Last Taken ?Type cholecalciferol (vitamin D3) 125 5,000 unit PO DAILY supplement 12/16/13 12/01/23 History mcg (5,000 unit) tablet gabapentin 800 mg tablet 800 mg PO TID MS 07/16/18 12/01/23 History baclofen 20 mg tablet 20 mg PO Q6H MS 08/11/21 12/01/23 History levothyroxine 50 mcg tablet 50 mcg PO DAILY thyroid 08/11/21 12/01/23 History oxycodone 10 mg tablet 10 mg PO Q6H PRN pain 05/24/23 12/01/23 History apixaban 5 mg tablet (Eliquis) 5 mg PO BID #60 tabs 01/11/24 Unknown Rx dextromethorphan-guaifenesin ER 60 1 tab PO Q12H PRN cough/congest 02/19/24 Unknown History mg-1,200 mg tab,extend release,12hr (Mucinex DM) amlodipine 5 mg tablet (Norvasc) 5 mg PO QDAY #90 tabs 11/24/24 Unknown Rx famotidine 40 mg tablet 40 mg PO QDAY PRN indigestion 11/24/24 Unknown History lisinopril 10 mg tablet 10 mg PO BID 11/24/24 Unknown History Allergy/AdvReac Type Severity Reaction Status Date / Time colestipol (From Colestid) Allergy Mild unknown Verified 12/09/24 10:18 pregabalin (From Lyrica) Allergy Mild Hives Verified 12/09/24 10:18 amitriptyline Allergy Rash Verified 12/09/24 10:18 temazepam (From Restoril) AdvReac Mild Nausea/Vom/ Verified 12/09/24 10:18 Diarrhea Antihistamines - Alkylamine AdvReac Nausea/Vom/ Verified 12/09/24 10:18 Diarrhea Antihistamines - Ethanolamine AdvReac Nausea/Vom/ Verified 12/09/24 10:18 Diarrhea Antihistamines - AdvReac Nausea/Vom/ Verified 12/09/24 10:18 Ethylenediamine Diarrhea Antihistamines - Piperazine AdvReac Nausea/Vom/ Verified 12/09/24 10:18 Diarrhea Antihistamines - Piperidine AdvReac Nausea/Vom/ Verified 12/09/24 10:18 Diarrhea aspirin AdvReac I'M ON Verified 12/09/24 10:18 BLOOD THINNERS codeine AdvReac Nausea Verified 12/09/24 10:18 Corticosteroids AdvReac Upset Verified 12/09/24 10:18 (Glucocorticoids) Stomach morphine AdvReac Nausea Verified 12/09/24 10:18 Kydvznd-PTO-AyR Reductase AdvReac Nausea Verified 12/09/24 10:18 Inhibitor (Umzrhrx-Saz-Zpc Reductase Inhibitor) Family History Mother Cancer CAD (coronary artery disease) Brain tumor Grandfather CVA (cerebral vascular accident) Father CAD (coronary artery disease) Ruptured abdominal aortic aneurysm (AAA) Sister Brain aneurysm Surgical History (Updated 12/09/24 @ 15:04 by Carmel Herndon) History of coronary artery stent placement History of appendectomy History of cholecystectomy History of angioplasty of peripheral vessel (07/11/19) Stenosis of left subclavian artery History of left heart catheterization (01/25/15) S/P coil embolization of cerebral aneurysm History of angioplasty of peripheral vessel History of right-sided carotid endarterectomy History of left-sided carotid endarterectomy History of partial thyroidectomy (11/30/05) History of hemorrhoidectomy History of hysterectomy History of section Brain aneurysm Fracture of right lower leg S/P insertion of iliac artery stent History of left breast biopsy H/O hemorrhoidectomy S/P hysterectomy H/O: S/P thyroidectomy Social History household members: none housing: apartment Smoking Status: Current every day smoker tobacco type: cigarettes alcohol intake: never caffeine: Yes Type: coffee and tea Physical Exam Const alert and oriented x3 HEENT normocephalic Eyes no scleral icterus Resp normal respiratory effort Cardio regular rate Skin no rashes or lesions noted Risk Stratification Risk Stratification Applicable: No Charges/Coding Visit Charges Inpatient E&M: 89784 Init Hosp L2 Objective Data Vital Signs: Vital Signs Temp Pulse Resp BP Pulse Ox O2 Del Method O2 Flow Rate 97.2 F L 63 18 123/80 H 97 Room Air 2 12/10/24 09:30 12/10/24 09:30 12/10/24 09:30 12/10/24 09:30 12/10/24 09:30 12/10/24 09:30 12/09/24 18:00 Oxygen Flow Rate (L/min) 2 Oxygen Delivery Method Room Air Weight: 113 lb 8.609 oz Body Mass Index (BMI) 18.8 Intake & Output: Intake and Output for Last 24 Hours 12/08/24 12/09/24 12/10/24 23:59 23:59 23:59 Intake Total 139 / 139 170 / 170 Balance 139 / 139 170 / 170 Lab / Micro Data 12/10/24 06:21 12/10/24 06:21 Labs: Laboratory Results - last 24 hr 12/09/24 12:35: Troponin I High Sens 74 H 12/09/24 16:22: Troponin I High Sens 72 H 12/10/24 06:21: WBC 7.2, RBC 4.52, Hgb 12.2, Hct 37.9, MCV 83.8, MCH 27.0, MCHC 32.2, RDW Std Deviation 46.5 H, RDW Coeff of David 15.3 H, Plt Count 175, MPV 9.7, Immature Gran % (Auto) 0.400, Neut % (Auto) 79.4 H, Lymph % (Auto) 10.6 L, [place] % (Auto) 7.4, Eos % (Auto) 1.5, Baso % (Auto) 0.7, Absolute Neuts (auto) 5.7, A bsolute Lymphs (auto) 0.76 L, Nucleated RBC % 0, Sodium 138, Potassium 3.8, Chloride 103, Carbon Dioxide 26.0, Anion Gap 9, BUN 23 H, Creatinine 1.03 H, Estim Creat Clear Calc 41.32, Est GFR (MDRD) Af Amer 68, Est GFR (MDRD) Non-Af 56 L, BUN/Creatinine Ratio 22.3 H, Glucose 85, Calcium 9.2, Triglycerides 106, Cholesterol 189, LDL Cholesterol 119, VLDL Cholesterol 21, HDL Cholesterol 49, TSH 0.715 Cardiology Labs/Tests 12/10/24 06:21: WBC 7.2, RBC 4.52, Hgb 12.2, Hct 37.9, MCV 83.8, MCH 27.0, MCHC 32.2, Plt Count 175, MPV 9.7, Immature Gran % (Auto) 0.400, Neut % (Auto) 79.4 H , Lymph % (Auto) 10.6 L, [place] % (Auto) 7.4, Eos % (Auto) 1.5, Baso % (Auto) 0.7, Absolute Neuts (auto) 5.7, Nucleated RBC % 0, Sodium 138, Potassium 3.8, Chloride 103, Carbon Dioxide 26.0, Anion Gap 9, BUN 23 H, Creatinine 1.03 H, Est GFR (MDRD) Af Amer 68, Est GFR (MDRD) Non-Af 56 L, BUN/Creatinine Ratio 22.3 H, Glucose 85, Calcium 9.2, Triglycerides 106, Cholesterol 189, LDL Cholesterol 119, VLDL Cholesterol 21, HDL Cholesterol 49 Rhythm: EKG: ECHO: Stress Test: Cardiac Cath: PCI: CT Surgery: Holter monitor: EPS: PPM: CXR: Chest CT Scan: Radiography Diagnostic Testing: Radiology Impression Echocardiogram 12/09/24 14:58 Interpretation Summary The estimated ejection fraction is 60 %. Unable to assess diastolic dysfunction. The left atrium is mildly enlarged. Mild (1+) mitral valve insufficiency. Moderate to severe mitral stenosis by pressure gradient Ordering Physician: Trina Tyler Referring Physician: Daron Benton Performed By: Noa Peace, MARY, RVT
--- NOTE | 2024-12-10 13:45 | EKG12_ITS ---
Test Reason : POST CATH Blood Pressure : */* mmHG Vent. Rate : 52 BPM Atrial Rate : 52 BPM P-R Int : 174 ms QRS Dur : 88 ms QT Int : 534 ms P-R-T Axes : 73 28 65 degrees QTcB Int : 496 ms Sinus bradycardia Possible Left atrial enlargement T wave abnormality, consider anterolateral ischemia Prolonged QT Abnormal ECG When compared with ECG of 10-Dec-2024 05:35, MANUAL COMPARISON REQUIRED DATA IS UNCONFIRMED Confirmed by ALAN FOX, JOSELITO ([id number]), editor map ADI CORDERO ([id number]) on 12/15/2024 2:13:49 PM Referred By: HOLLEY Confirmed By: JOSELITO PHILLIPS MD
[2024-12-10] MEDS: Senna/Docusate Sodium 1 Tablet 2 TABLET PO ×2 (13:46→20:12)
--- NOTE | 2024-12-10 14:21 | PN_ITS ---
Subjective Subjective Patient seen and examined. She had no active complaints. Review of systems is otherwise negative. Her BP has improved and she feels much better. She is due for cardiac cath today. Objective Data Objective Data Vital Signs: Vital Signs Temp Pulse Resp BP Pulse Ox O2 Del Method O2 Flow Rate 97.2 F L 52 L 18 147/72 H 92 Room Air 2 12/10/24 09:30 12/10/24 13:45 12/10/24 13:45 12/10/24 13:45 12/10/24 13:45 12/10/24 13:45 12/09/24 18:00 Oxygen Flow Rate (L/min) 2 Oxygen Delivery Method Room Air Weight: 113 lb 8.609 oz Body Mass Index (BMI) 18.8 Intake & Output: Intake and Output for Last 24 Hours 12/08/24 12/09/24 12/10/24 23:59 23:59 23:59 Intake Total 139 / 139 170 / 170 Balance 139 / 139 170 / 170 Lab / Micro Data 12/10/24 06:21 12/10/24 06:21 Labs: Laboratory Results - last 24 hr 12/09/24 16:22: Troponin I High Sens 72 H 12/10/24 06:21: WBC 7.2, RBC 4.52, Hgb 12.2, Hct 37.9, MCV 83.8, MCH 27.0, MCHC 32.2, RDW Std Deviation 46.5 H, RDW Coeff of David 15.3 H, Plt Count 175, MPV 9.7, Immature Gran % (Auto) 0.400, Neut % (Auto) 79.4 H, Lymph % (Auto) 10.6 L, [place] % (Auto) 7.4, Eos % (Auto) 1.5, Baso % (Auto) 0.7, Absolute Neuts (auto) 5.7, A bsolute Lymphs (auto) 0.76 L, Nucleated RBC % 0, Sodium 138, Potassium 3.8, Chloride 103, Carbon Dioxide 26.0, Anion Gap 9, BUN 23 H, Creatinine 1.03 H, Estim Creat Clear Calc 41.32, Est GFR (MDRD) Af Amer 68, Est GFR (MDRD) Non-Af 56 L, BUN/Creatinine Ratio 22.3 H, Glucose 85, Calcium 9.2, Triglycerides 106, Cholesterol 189, LDL Cholesterol 119, VLDL Cholesterol 21, HDL Cholesterol 49, TSH 0.715 Radiography Diagnostic Testing: Radiology Impression Echocardiogram 12/09/24 14:58 Interpretation Summary The estimated ejection fraction is 60 %. Unable to assess diastolic dysfunction. The left atrium is mildly enlarged. Mild (1+) mitral valve insufficiency. Moderate to severe mitral stenosis by pressure gradient Ordering Physician: Trina Tyler Referring Physician: Daron Benton Performed By: Noa Peace RDCS, RVT Physical Exam Const alert, oriented x3, no apparent distress and well nourished General Appearance: cooperative and well developed HEENT normocephalic, head/scalp atraumatic, moist oral mucous membranes and oropharynx normal Eyes PERRL and EOMs intact bilaterally Neck no lymphadenopathy, supple and no JVD Lymph Lymphatic: no lymphadenopathy noted and no lymphedema noted Resp normal respiratory effort, normal air movement and clear to auscultation bilaterally Cardio regular rate, regular rhythm, S1 normal heart sound, S2 normal heart sound and no murmurs GI normal to inspection, nondistended, normoactive bowel sounds, soft to palpation, non-tender and non-distended Extremity normal capillary refill, no clubbing, cyanosis or edema and no calf tenderness General Extremity: no tenderness to palpation of joints or extremities Skin General Skin Exam: no breakdown Neuro CN's II-XII intact bilaterally, no focal motor deficits, no sensory deficits noted and deep tendon reflexes 2+ bilaterally Motor Exam: strength 5/5 throughout and general weakness Psych thought process normal, cooperative and affect normal Appearance: appropriate Assessment & Plan Assessment/Plan (1) Chest pain: PLAN: Plan #Hypertensive emergency * improving * Was admitted with markedly elevated blood pressure. She also had elevated troponins with initial troponin being 91 and subsequently going down to 74. * On blood pressure medications-lisinopril and amlodipine. Started on PO metoprolol. * IV hydralazine as needed #Non-STEMI * Admitted with left arm pain but it was reproducible with palpation. Initial troponin was 91 but trended down was 74. * On aspirin and statin. Had cardiac cath today * 2D echo showed EF of 60% and unable to assess diastolic dysfunction and moderate to severe mitral stenosis * cardiac cath showed 40% stenosis in the ostial left main and 60% stenosis in the mid LAD with close occluded small distal diagonal branch that fills by collaterals which is likely the culprit for patient's apical wall motion abnormality. * Cardiology recommended adding on aspirin. * She had had nausea with statins in the past so not started on statin. * Started on metoprolol 25 mg twice daily * * #?hematochezia * patient apparently complained of blood in stool at home. She has however not had any blood in his stool during this admission and hemoglobin has remained stable. 2 focal blood is pending. She is on aspirin and Eliquis which have been continued for now. * on aspirin and eliquis, * check stool for occult blood; ordered and is pending * consult GI * hb is 12.2. * * #Moderate to severe mitral valve stenosis * as per 2D echo. * to follow up with cardiology on outpatient basis for further evaluation * #History of carotid stenosis s/p carotid endarterecetomy * on statin and eliquis * follow with vascular surgery on outpatient basis * #History of paroxysmal afib * on eliquis * #History of multiple sclerosis * on baclofen and gabapentin * #GERD: on PPI #Hypothyroidism: on synthroid. #Nicotine dependence: counseled to quit. Patient apparently refused nicotine patch on admission. DVT prophylaxis: On Eliquis Disposition: For discharge tomorrow. Patient says she does not have anyone to pick her up and so would want to be discharged tomorrow. Charges/Coding Visit Charges Inpatient E&M: 70263 Subs Hosp L2
--- NOTE | 2024-12-10 15:41 | CASEMGMT ---
Met with patient to complete BONNER form. BONNER form explained to patient who voiced understanding and signed form. Original form placed in pt?s chart and copy provided to patient. Dena Torres, Discharge Planning Asst
--- NOTE | 2024-12-10 19:58 | NURSING ---
Dr Resendiz notified of pt refusal to take more than 12.5 mg of metoprolol tonight. Changed order for this evening. Primary nurse to inform cardiology in am.
[2024-12-10] MEDS: Metoprolol Tartrate 25 MG Tablet 12.5 MG PO (20:12)
--- NOTE | 2024-12-10 23:54 | PCM.HOSP.N ---
Hospitalist Note Patient declined full dose of metoprolol which was started. Willing to take 1/2 dose. After first dose with patient with HR drop into the 40s consistently. Also notes ~ 2.5 hours following she has started on hallucinate mice. Will hold this medication as patient noting unwillingness to continue. Will continue to monitor.
[2024-12-11] VITALS (8 sets, daily range): BP systolic 123–160; BP diastolic 62–87; PULSE 51–70; RESP 16–17; TEMP 36.2–36.8; O2SAT 95–100
[2024-12-11] MEDS: oxyCODONE 5 MG Tablet 10 MG PO ×2 (01:58→11:05)
[2024-12-11 05:11] LABS: Hematocrit 35.3 % (37-47); Hemoglobin 11.2 g/dL (12.0-15.0); Mean Corp Hgb Conc 31.7 g/dL (32-36); Mean Corpuscular Hgb 26.4 pg (27.0-32.0); Mean Corpuscular Volume 83.3 fL (81-99); Platelet Count 197 K/mm3 (150-450); RBC Distribution Width CV 15.4 % (11.6-14.6); RBC Distribution Width SD 46.5 fl (35.1-43.9); Red Blood Count 4.24 M/mm3 (4.2-5.4); White Blood Count 7.7 K/mm3 (4.4-11.0)
[2024-12-11] MEDS: Levothyroxine 50 MCG Tablet PO (05:38)
[2024-12-11] MEDS: Gabapentin 800 MG Tablet PO ×2 (05:38→14:07)
[2024-12-11 06:11] LABS: ALB/GLOB Ratio 0.9 RATIO (0.9-2.4); AST(SGOT) 13 U/L (15-37); Alanine Aminotransfer ALT/SGPT 12 U/L (13-56); Alkaline Phosphatase 123 U/L (45-117); Anion Gap 8 (5-15); BUN 24 mg/dL (7-18); BUN/Creat Ratio 20.3 RATIO (10-20); Calcium,Total 8.9 mg/dL (8.5-10.1); Chloride 103 mmol/L (98-107); Creatinine, Serum 1.18 mg/dL (0.55-1.02); EST Glomerular Filtration Rate 48 mL/min (>60); Est Glom Filt Rate - Afr Amer 58 mL/min (>60); Estimated Creatinine Clearance 36.07 ml/min; Globulin 3.4 g/dL (2.2-4.2); Glucose 98 mg/dL (74-106); Protein, Total 6.4 g/dL (6.4-8.2); Sodium Level 135 mmol/L (136-145)
[2024-12-11] MEDS: Calcium Carbonate 500 MG Tablet PO (06:42)
[2024-12-11] MEDS: amLODIPine 5 MG Tablet PO (09:26)
[2024-12-11] MEDS: Pantoprazole Sodium 40 MG in 0.9% Normal Saline (100mL MB+) 100 ML 330 MG IV (09:26)
[2024-12-11] MEDS: Lisinopril 10 MG Tablet PO (09:28)
[2024-12-11] MEDS: Senna/Docusate Sodium 1 Tablet 2 TABLET PO (09:31)
[2024-12-11] MEDS: Baclofen 10 MG Tablet 20 MG PO (09:32)
[2024-12-11] MEDS: 0.9% Saline Lock 10 ML Syringe IV (09:34)
--- NOTE | 2024-12-11 10:00 | EKG12_ITS ---
Test Reason : AM EKG Blood Pressure : */* mmHG Vent. Rate : 48 BPM Atrial Rate : 48 BPM P-R Int : 158 ms QRS Dur : 90 ms QT Int : 562 ms P-R-T Axes : 69 42 72 degrees QTcB Int : 502 ms Sinus bradycardia Possible Left atrial enlargement Minimal voltage criteria for LVH, may be normal variant ( [place] product ) Anterior infarct , age undetermined T wave abnormality, consider lateral ischemia Abnormal ECG When compared with ECG of 10-Dec-2024 15:49, MANUAL COMPARISON REQUIRED DATA IS UNCONFIRMED Confirmed by ALAN FOX, JOSELITO ([id number]), mapping editor ADI CORDERO ([id number]) on 12/15/2024 2:12:22 PM Referred By: Confirmed By: JOSELITO PHILLIPS MD
--- NOTE | 2024-12-11 13:28 | DCINST_ITS ---
Discharge Instructions Diet Discharge Diet: Low fat / Low cholesterol DC O2, CPAP, BIPAP needs Home O2 Discharge instructions: No Dressing / Incision Discharge Activity: Return to Normal Activity Weight Bearing Status: Weight bearing as tolerated Dressing / Incision Call your doctor if you observe: Fever of 101 or Higher, Shortness of breath, Dizziness, Swelling in the ankles and Chest pain Follow Up Care Test Results: Test results from this visit will be discussed in further detail at your follow- up appointment, if applicable. Discharge Plan Admission Admit Date/Time: 12/09/24 14:32 Primary Reason for Your Visit: CAD Attending Provider: Neha Watson Primary Care Provider: Daron Benton Consulting Providers: Kofi Weiner; Trina Tyler Instructions Patient Instructions: CAD Discharge Orders/Prescriptions Prescriptions: New aspirin 81 mg Tablet,Delayed Release (Dr/Ec) 81 mg PO BREAKFAST Qty: 30 2RF carvedilol 3.125 mg Tablet 3.125 mg PO BIDCM Qty: 60 2RF Continued gabapentin 800 mg tablet 800 mg PO TID baclofen 20 mg tablet 20 mg PO Q6H levothyroxine 50 mcg tablet 50 mcg PO DAILY Patient Comments: take 1 tablet by mouth once daily oxycodone 10 mg tablet 10 mg PO Q6H PRN Patient Comments: take 1 tab q6 PRN for pain famotidine 40 mg tablet 40 mg PO QDAY PRN (Reason: indigestion) lisinopril 10 mg tablet 10 mg PO BID amlodipine [Norvasc] 5 mg tablet 5 mg PO QDAY Qty: 90 3RF cholecalciferol (vitamin D3) 5,000 UNIT tablet 5,000 unit PO DAILY Patient Comments: supplement dextromethorphan-guaifenesin [Mucinex DM] 60-1,200 mg tablet extended release 12 hr 1 tab PO Q12H PRN (Reason: cough/congest) Eliquis 5 mg tablet 5 mg PO BID Qty: 60 11RF Referrals / Follow Up: Daron Benton MD [Primary Care Provider] - Within 1 Week Kofi Weiner MD [Med Staff - Active Staff] - Within 1 Week Disposition Disposition (needs filled in before D/C Order can be placed): Home, Self Care
--- NOTE | 2024-12-11 13:28 | PCM.DC.SUM ---
Providers Date of Admission: 12/09/24 Date of Discharge: 12/11/24 Primary Care Physician: Dr. Daron Benton MD Consultations 12/09/24 17:55 Consult: Cardiology Routine Consulting Provider: Kofi Weiner Reason for Consult: Elevated trops, abnormal echo EMERGENT Consult: No MD Notified: Yes Date Notified: 12/09/24 Time Notified: 17:55 Method of Notification: Verbal Reason For Visit: ELEVATED TROPONIN Diagnosis Discharge Diagnosis (1) Chest pain: Status: Acute Code(s): R07.9 - Chest pain, unspecified Plan #Hypertensive emergency improving Was admitted with markedly elevated blood pressure. She also had elevated troponins with initial troponin being 91 and subsequently going down to 74. On blood pressure medications-lisinopril and amlodipine. Started on PO metoprolol. IV hydralazine as needed #Non-STEMI Admitted with left arm pain but it was reproducible with palpation. Initial troponin was 91 but trended down was 74. On aspirin and statin. Had cardiac cath today 2D echo showed EF of 60% and unable to assess diastolic dysfunction and moderate to severe mitral stenosis cardiac cath showed 40% stenosis in the ostial left main and 60% stenosis in the mid LAD with close occluded small distal diagonal branch that fills by collaterals which is likely the culprit for patient's apical wall motion abnormality. Cardiology recommended adding on aspirin. She had had nausea with statins in the past so not started on statin. Started on metoprolol 25 mg twice daily #?hematochezia patient apparently complained of blood in stool at home. She has however not had any blood in his stool during this admission and hemoglobin has remained stable. 2 focal blood is pending. She is on aspirin and Eliquis which have been continued for now. on aspirin and eliquis, check stool for occult blood; ordered and is pending consult GI hb is 12.2. #Moderate to severe mitral valve stenosis as per 2D echo. to follow up with cardiology on outpatient basis for further evaluation #History of carotid stenosis s/p carotid endarterecetomy on statin and eliquis follow with vascular surgery on outpatient basis #History of paroxysmal afib on eliquis #History of multiple sclerosis on baclofen and gabapentin #GERD: on PPI #Hypothyroidism: on synthroid. #Nicotine dependence: counseled to quit. Patient apparently refused nicotine patch on admission. DVT prophylaxis: On Eliquis Disposition: For discharge tomorrow. Patient says she does not have anyone to pick her up and so would want to be discharged tomorrow. Medications at Discharge Home Medications cholecalciferol (vitamin D3) 125 mcg (5,000 unit) tablet 5,000 unit PO DAILY supplement 12/16/13 gabapentin 800 mg tablet 800 mg PO TID MS 07/16/18 baclofen 20 mg tablet 20 mg PO Q6H MS 08/11/21 levothyroxine 50 mcg tablet 50 mcg PO DAILY thyroid 08/11/21 oxycodone 10 mg tablet 10 mg PO Q6H PRN pain 05/24/23 apixaban 5 mg tablet (Eliquis) 5 mg PO BID #60 tabs 01/11/24 dextromethorphan-guaifenesin ER 60 mg-1,200 mg tab,extend release,12hr (Mucinex DM) 1 tab PO Q12H PRN cough/congest 02/19/24 amlodipine 5 mg tablet (Norvasc) 5 mg PO QDAY #90 tabs 11/24/24 famotidine 40 mg tablet 40 mg PO QDAY PRN indigestion 11/24/24 lisinopril 10 mg tablet 10 mg PO BID 11/24/24 aspirin 81 mg tablet,delayed release 81 mg PO BREAKFAST #30 tabs 12/11/24 carvedilol 3.125 mg tablet 3.125 mg PO BIDCM #60 tabs 12/11/24 Hospital Course Operations None Procedures None Summary of Care Provided Minutes Spent on Discharge: 45 Hospital Course: Patient is a 69-year-old female with a past medical history as outlined was admitted through the ED on 12/09/2024 on account of elevated blood pressure. She says she had noted that her diastolic pressure at home was over 100 I started having left arm pain and blurred vision. She had assisted cold sweat so she came into the ED. Blood pressure was elevated at 160/95 and repeat was 175/100. Initial troponin was 91 but subsequently trended out 74. She was therefore admitted to be managed for poorly controlled blood pressure. Patient had also complained of some blood in her stool though she says she had had some polyps in her colon and some bleeding in her stomach which was addressed through EGD earlier in the year. Her hemoglobin remained stable during this admission and no melena or hematochezia was noted throughout the admission. She did have 2D echo which showed EF of 60% with moderate to severe mitral valve stenosis. Plan was for her to have stress test but she subsequently had EKG changes in the lateral leads cardiology was consulted. Per cardiology her echo also showed wall motion abnormalities of the apex. She therefore had cardiac cath which showed 40% stenosis in the left main ostial artery, 60% stenosis in the mid LAD and occluded small distal diagonal branch but further collateral is most likely the culprit for the patient's apical wall motion abnormality. Per cardiology her underlying CAD and mitral stenosis was to be treated medically. Aspirin was added onto her medication. Metoprolol 25 mg twice daily was also added on. Patient however subsequently said that she had hallucinations with metoprolol so this was discontinued and she was started on carvedilol 3.125 mg twice daily. She remained stable and was discharged home on 12/11/2024. Patient seen and examined prior to discharge. She complained of constipation. REview of systems was otherwise negative. Labs and vitals reviewed. Home meds reviewed and reconciled. Physical Exam Const alert, oriented x3, no apparent distress and well nourished General Appearance: cooperative, comfortable, well kempt and well developed Orientation / Consciousness: awake Exam Limitations: no limitations HEENT normocephalic, head/scalp atraumatic, hearing grossly normal bilaterally, moist oral mucous membranes and oropharynx normal Mouth: oral and palatal mucosa normal Eyes PERRL, EOMs intact bilaterally and conjunctivae normal Neck no lymphadenopathy, supple and no JVD Lymph Lymphatic: no lymphadenopathy noted and no lymphedema noted Resp normal respiratory effort, normal air movement and clear to auscultation bilaterally Cardio regular rate, regular rhythm, S1 normal heart sound, S2 normal heart sound and no murmurs GI normal to inspection, nondistended, normoactive bowel sounds, soft to palpation, non-tender and non-distended Extremity normal to inspection, full ROM, normal capillary refill, no clubbing, cyanosis or edema and no calf tenderness General Extremity: no tenderness to palpation of joints or extremities Skin no rashes or lesions noted General Skin Exam: no breakdown Neuro oriented x3, CN's II-XII intact bilaterally, moves all extremities, no focal motor deficits, no sensory deficits noted and deep tendon reflexes 2+ bilaterally Sensorium / Orientation: awake and alert Motor Exam: strength 5/5 throughout Psych thought process normal, cooperative and affect normal Appearance: appropriate Weight / BMI Weight Weight: 113 lb 8.609 oz Body Mass Index (BMI) 18.8 ABG / Lab / Microbiology Data 12/11/24 04:18 12/11/24 04:18 Laboratory: Laboratory Results - last 24 hr 12/11/24 04:18: WBC 7.7, RBC 4.24, Hgb 11.2 L, Hct 35.3 L, MCV 83.3, MCH 26.4 L, MCHC 31.7 L, RDW Std Deviation 46.5 H, RDW Coeff of David 15.4 H, Plt Count 197, MPV 10.0, Sodium 135 L, Potassium 4.0, Chloride 103, Carbon Dioxide 24.0, Anion Gap 8, BUN 24 H, Creatinine 1.18 H, Estim Creat Clear Calc 36.07, Est GFR (MDRD) Af Amer 58 L, Est GFR (MDRD) Non-Af 48 L, BUN/Creatinine Ratio 20.3 H, Glucose 98, Calcium 8.9, Total Bilirubin 0.30, AST 13 L, ALT 12 L, Alkaline Phosphatase 123 H, Total Protein 6.4, Albumin 3.0 L, Globulin 3.4, Albumin/Globulin Ratio 0.9 Microbiology: Microbiology 12/11/24 11:31 Stool Stool Occult Blood ([facility]) - Final D/C Instructions Discharge Diet: Low fat / Low cholesterol Discharge Activity: Return to Normal Activity Weight Bearing Status: Weight bearing as tolerated Call your doctor if you observe: Fever of 101 or Higher, Shortness of breath, Dizziness, Swelling in the ankles and Chest pain DC O2, CPAP, BIPAP Needs RN Home O2 Qualification: Home O2 Qualification: Is the patient on home oxygen Yes 12/11/24 13:46 Home O2 Qualification: AT REST 1-Pulse Ox at rest 96 12/11/24 13:46 1- Oxygen flow rate at rest 0 12/11/24 13:46 Home O2 Qualification: WITH AMBULATION 1- Pulse Ox with ambulation 97 12/11/24 13:46 1- Oxygen Flow Rate with 0 12/11/24 13:46 ambulation Home O2 Discharge instructions: No DC home with Oxygen: No Meaningful Use Info Meaningful Use Meaningful Use Diagnoses (Choose all that apply): None applicable Ischemic Stroke Statin Dosing Therapy Reference: STATIN DOSE THERAPY REFERENCE: * Patients > 75 years receive moderate or high dose statin therapy. * Patients 75 years or YOUNGER should receive HIGH intensity statin dose unless contraindicated. You will be required to document reason for non-treatment if statin daily dose does not meet guidelines. HIGH DOSE STATIN THERAPY DAILY Atorvastatin > than or = to 40 mg Rosuvastatin > than or = to 20 mg Amlodipine + Atorvastatin > than or = to 2.5/40 mg Ezetimibe + Simvastatin 10/80 mg Simvastatin 80mg Discharge Plan Admission Admit Date/Time: 12/09/24 14:32 Primary Reason for Your Visit: CAD Attending Provider: Neha Watson Primary Care Provider: Daron Benton Consulting Providers: Kofi Weiner; Trina Tyler Instructions Patient Instructions: CAD Discharge Orders/Prescriptions Prescriptions: New aspirin 81 mg Tablet,Delayed Release (Dr/Ec) 81 mg PO BREAKFAST Qty: 30 2RF carvedilol 3.125 mg Tablet 3.125 mg PO BIDCM Qty: 60 2RF Continued gabapentin 800 mg tablet 800 mg PO TID baclofen 20 mg tablet 20 mg PO Q6H levothyroxine 50 mcg tablet 50 mcg PO DAILY Patient Comments: take 1 tablet by mouth once daily oxycodone 10 mg tablet 10 mg PO Q6H PRN Patient Comments: take 1 tab q6 PRN for pain famotidine 40 mg tablet 40 mg PO QDAY PRN (Reason: indigestion) lisinopril 10 mg tablet 10 mg PO BID amlodipine [Norvasc] 5 mg tablet 5 mg PO QDAY Qty: 90 3RF cholecalciferol (vitamin D3) 5,000 UNIT tablet 5,000 unit PO DAILY Patient Comments: supplement dextromethorphan-guaifenesin [Mucinex DM] 60-1,200 mg tablet extended release 12 hr 1 tab PO Q12H PRN (Reason: cough/congest) Eliquis 5 mg tablet 5 mg PO BID Qty: 60 11RF Referrals / Follow Up: Daron Benton MD [Primary Care Provider] - 12/15/24 11:20 am Kofi Weiner MD [Med Staff - Active Staff] - 12/19/24 2:00 pm Disposition Disposition (needs filled in before D/C Order can be placed): Home, Self Care Charges/Coding Visit Charges Inpatient E&M: 62493 Disch Hosp >30min
--- NOTE | 2024-12-11 13:46 | CASEMGMT ---
Patient has order for discharge. RN CM in to discuss needs at discharge. Patient states she is at her baseline ambulating with walker. Patient denies needs or help at discharge. Patient has aide services and brother helps as well. Patient had no further questions or concerns.
--- NOTE | 2024-12-11 13:49 | CASEMGMT ---
YAW faxed patient's d/c instructions to Deana Santoro with [facility]. Lizbeth Monet [employer]
--- NOTE | 2024-12-11 14:47 | CL.D_ITS ---
Patient Name: ADY WALLER Study Date: 12/10/2024 Performing: Evelyn Weiner MD Ht: 56 inches 142.24 cm : 1955 Wt: 113.7 lbs 51.5 kg Age: 69 Gender: female BSA: 1.4 PROCEDURE(S) PERFORMED [id number]-([id number])[facility] CLINICAL PROFILE AND INDICATIONS Indications: ACS <= 24 hrs, NSTEMI, abnormal Echo Heart Failure: None CONCLUSIONS Coronary artery disease and peripheral vascular disease as described. RECOMMENDATIONS Maximal medical therapy for coronary artery and peripheral vascular disease. Follow-up with cardiology as outpatient DESCRIPTION OF PROCEDURE The patient arrived to the procedure lab. The risks and benefits of the procedure as well as a full description of our services here and current unavailability of surgical backup were fully explained to the patient and/or their significant other prior to the catheterization. The Timeout was completed, verifying the correct patient and procedure. The patient's procedural site was prepped and draped in the usual fashion. Local anesthetic was given subcutaneously to right radial region with Lidocaine 2%. Local anesthetic was given subcutaneously to right groin region with Lidocaine 2%. Using a modified Seldinger technique, arterial access was obtained via the right radial artery, a 6Fr sheath was inserted., arterial access was obtained via the right femoral artery, a 6Fr sheath was inserted. Left Coronary Artery selective angiography was performed in multiple views using a 5 Fr. JL3.5 catheter. LV to AO pullback pressures were then recorded. Right Coronary Artery selective angiography was then performed in multiple views using a 5 Fr. JR 4 catheter. Right upper extremity selective angiography was then performed in single view. Abdominal aorta selective angiography was then performed in single view. Left iliac selective angiography was then performed in single view. Right iliac selective angiography was then performed in single view.The Right radial arterial sheath was pulled and a TR Band was applied for hemostasis. The Femoral arterial sheath was pulled and manual compression applied until hemostasis is achieved. CORONARY ANGIOGRAPHY DOMINANCE: Right Dominant LEFT MAIN: 40 % Stenosis LEFT ANTERIOR DESCENDING ARTERY: MID LAD: 60 % Stenosis CIRCUMFLEX ARTERY: Mild luminal irregularities RIGHT CORONARY ARTERY: PROX RCA: 40 % Stenosis PERIPHERAL FINDINGS: Abdominal Aorta: Moderate diffuse disease in the infrarenal aorta. There appears to be a focal 60-70% stenosis. Right Common Iliac Artery 60-70 % ostial stenosis (instent restenosis). Rest of the stent is widely patent Right External Iliac Artery Moderate diffuse disease. Right SFA appears to be occluded Left Common Iliac Artery Patent previously placed stent. No significant obstructive disease Left External Iliac Artery Mild luminal irregularities. Left SFA is occluded (in-stent restenosis) COMPLICATIONS No Complications PROCEDURE MEDICATIONS Fentanyl 50 mcg IV Versed 1 mg IV Versed 1 mg IV Oxygen: 2 L/min via nasal cannula Aspirin (325mg) 1 Tabs PO @ 12/10/2024 12:08:00 Heparin given IA 12/10/2024 12:23:28 Verapamil 2.5mg, Ntg 100mcgs, 3000 units of Heparin given IA 12/10/2024 12:23:28 SUMMARY OF HEMODYNAMIC DATA Time AIR REST ECG 12:03:39 AO 118/54 (78) SA 12:36:02 LV 145/-2, 5 12:41:32 LV 131/0, 7 12:41:56 LVp 131/0, 8 12:42:03 AOp 146/52 (87) 12:42:10 Signed By Evelyn Weiner MD On 12/11/2024 14:46:45 Evelyn Weiner MD
== END 2024-12-11 15:14 | disposition home or self-care (01) ==
LOC: ED 13:52 → PCU 14:34
PROVIDERS: Specialist; Admitting Provider Internal Medicine; Emergency Provider Emergency Medicine; PCP Family Medicine; Visit Provider Student in an Organized Health Care Education/Training Program
DX: I16.1 Hypertensive emergency (principal); G35 Multiple sclerosis; I48.0 Paroxysmal atrial fibrillation; K92.2 Gastrointestinal hemorrhage, unspecified; G89.4 Chronic pain syndrome; Z79.890 Hormone replacement therapy; M79.602 Pain in left arm; E78.5 Hyperlipidemia, unspecified; I10 Essential (primary) hypertension; R06.02 Shortness of breath; I25.10 Atherosclerotic heart disease of native coronary artery without angina pectoris; R07.89 Other chest pain; F17.210 Nicotine dependence, cigarettes, uncomplicated; R79.89 Other specified abnormal findings of blood chemistry; M54.50 Low back pain, unspecified; R93.1 Abnormal findings on diagnostic imaging of heart and coronary circulation; I73.9 Peripheral vascular disease, unspecified; Z79.899 Other long term (current) drug therapy; E03.9 Hypothyroidism, unspecified; H53.8 Other visual disturbances
CPT/HCPCS: 36415; 70450; 71045; 80048; 80053; 80061; 82274; 83735; 84443; 84484; 85025; 85027; 93005; 93306; 93454; 96365; 96366; 96375; 97116; 97162; 97802; 99152; 99153; 99221; 99285; Q9957; Q9967; A4216; C1769; C1894; C8929; G0378

== ENCOUNTER 2024-12-17 10:12 | Emergency (ER) | payer MEDICARE, MEDICAID, SELFPAY ==
[2024-12-17 10:13] VITALS: BP 172/80; PULSE 78; RESP 20; TEMP 36.6; O2SAT 93; BMI 19.5
--- NOTE | 2024-12-17 10:23 | EKG12_ITS ---
Test Reason : CP Blood Pressure : */* mmHG Vent. Rate : 66 BPM Atrial Rate : 66 BPM P-R Int : 152 ms QRS Dur : 86 ms QT Int : 432 ms P-R-T Axes : 65 48 75 degrees QTcB Int : 452 ms Normal sinus rhythm Possible Left atrial enlargement T wave abnormality, consider anterior ischemia Abnormal ECG Confirmed by ALAN FOX, JOSELITO ([id number]), staff editor ADI CORDERO ([id number]) on 12/18/2024 1:21:43 PM Referred By: Confirmed By: JOSELITO PHILLIPS MD
--- NOTE | 2024-12-17 10:27 | RAD_ITS ---
PROCEDURE: CHEST PA AND LATERAL REASON FOR EXAM: Cough, rales, and bilateral wheezing. TECHNIQUE: Three-view frontal and lateral views of the chest. COMPARISON: [employer] from the chest CT of 10/03/2024. RAD/Chest PA and Lateral IMPRESSION: Bilateral neck surgical clips are noted. At least mild lung hyperinflation is noted, also with mildly increased intersti tial markings, suggestive of chronic lung disease. No acute pneumonic process is evident. The cardiomediastinal silhouette is within the normal range for age. No pleural effusion or pneumothorax is noted. Mild thoracic spine degenerative changes are seen. Reading Location: [id number]
[2024-12-17 10:41] LABS: Hematocrit 35.3 % (37-47); Hemoglobin 11.3 g/dL (12.0-15.0); Mean Corpuscular Hgb 27.4 pg (27.0-32.0); Mean Corpuscular Volume 85.5 fL (81-99); Mean Platelet Vol. 9.9 fl (6.2-12.0); Platelet Count 230 K/mm3 (150-450); RBC Distribution Width CV 15.8 % (11.6-14.6); RBC Distribution Width SD 49.2 fl (35.1-43.9); Red Blood Count 4.13 M/mm3 (4.2-5.4); White Blood Count 8.8 K/mm3 (4.4-11.0)
[2024-12-17] MEDS: Albuterol 2.5 MG/3 ML VIAL.NEB. INHALATION (10:45)
[2024-12-17] MEDS: Ipratropium/Albuterol Sulfate 3 ML AMPUL.NEB INHALATION (10:45)
--- NOTE | 2024-12-17 10:47 | EDS_ITS ---
HPI History of Present Illness Chief Complaint: Chest Pain Detail of Chief Complaint: Left-sided chest pain with left shoulder pain with diaphoresis and shortnes Informant: patient Onset/Context/Timing Onset: Today (0130) Activity at onset: sudden Timing: Continuous Quality: Positive for Burning and Sharp Location: Left Chest (Left shoulder and arm as well.) Current Severity: Mild Maximum Severity: Severe Worsened By: Nothing Relieved By: Nothing Associated Symptoms: Positive for Diaphoresis and Dyspnea; Negative for Nausea, Vomiting, Cough, Fever, Lightheadedness, Acid Reflux or Palpitations Narrative Narrative: Patient is a 69-year-old woman with history of nonobstructive atherosclerotic disease of the heart and evidence of peripheral artery serial disease based on recent angiography performed by Dr. Weiner. Report was reviewed. Patient had elevated troponins for that admission. Patient was awakened from sleep with left-sided chest pain with left arm sharp burning pain and diaphoresis. She has shortness of breath. She denied fever, chills night sweats. She does endorse some nasal congestion. Her voice is slightly hoarse. She does have a cough that is nonproductive. She denies ill contacts. She denies fever or chills. She denies abdominal pain, nausea, vomiting or diarrhea. He denies dysuria, frequency, urgency or hematuria. She denies flank pain. She denies leg pain, swelling or discoloration. She has no history of VTE. Prior Similar Symptoms: Yes and With Prior Angina CVD Risk Factors: Positive for Hypertension and Hypercholesterolemia PE Risk Factors: Negative for Recent Travel/Surgery, Recent Immobilization, Prior DVT or PE, Cancer or OCP + Smoking + >/=35 TAD Risk Factors: Positive for Hypertension; Negative for Marfan's Syndrome or Family History [facility] Medical History Depression On home oxygen therapy Atrial fibrillation PAF (paroxysmal atrial fibrillation) Atrial fibrillation Hypothyroidism Smoker Coronary artery disease TIA (transient ischemic attack) Influenza A Nonsustained paroxysmal supraventricular tachycardia Multiple sclerosis Nonobstructive atherosclerosis of coronary artery Peripheral vascular occlusive disease Essential (primary) hypertension Bilateral carotid artery stenosis History of transient ischemic attack (TIA) Fatty liver Thrombocytopenia GERD (gastroesophageal reflux disease) Psoriatic arthritis Psoriasis Osteoporosis Osteoarthritis Goiter Multiple sclerosis HLD (hyperlipidemia) Angina pectoris Chronic pain syndrome Home Medications ?Medication ?Instructions ?Recorded ?Last Taken ?Type cholecalciferol (vitamin D3) 125 5,000 unit PO DAILY supplement 12/16/13 12/01/23 History mcg (5,000 unit) tablet gabapentin 800 mg tablet 800 mg PO TID MS 07/16/18 12/01/23 History baclofen 20 mg tablet 20 mg PO Q6H MS 08/11/21 12/01/23 History levothyroxine 50 mcg tablet 50 mcg PO DAILY thyroid 08/11/21 12/01/23 History oxycodone 10 mg tablet 10 mg PO Q6H PRN pain 05/24/23 12/01/23 History apixaban 5 mg tablet (Eliquis) 5 mg PO BID #60 tabs 01/11/24 Unknown Rx dextromethorphan-guaifenesin ER 60 1 tab PO Q12H PRN cough/congest 02/19/24 Unknown History mg-1,200 mg tab,extend release,12hr (Mucinex DM) amlodipine 5 mg tablet (Norvasc) 5 mg PO QDAY #90 tabs 11/24/24 Unknown Rx famotidine 40 mg tablet 40 mg PO QDAY PRN indigestion 11/24/24 Unknown History lisinopril 10 mg tablet 10 mg PO BID 11/24/24 Unknown History aspirin 81 mg tablet,delayed 81 mg PO BREAKFAST #30 tabs 12/11/24 Unknown Rx release Allergy/AdvReac Type Severity Reaction Status Date / Time colestipol (From Colestid) Allergy Mild unknown Verified 12/17/24 10:16 pregabalin (From Lyrica) Allergy Mild Hives Verified 12/17/24 10:16 amitriptyline Allergy Rash Verified 12/17/24 10:16 temazepam (From Restoril) AdvReac Mild Nausea/Vom/ Verified 12/17/24 10:16 Diarrhea Antihistamines - Alkylamine AdvReac Nausea/Vom/ Verified 12/17/24 10:16 Diarrhea Antihistamines - Ethanolamine AdvReac Nausea/Vom/ Verified 12/17/24 10:16 Diarrhea Antihistamines - AdvReac Nausea/Vom/ Verified 12/17/24 10:16 Ethylenediamine Diarrhea Antihistamines - Piperazine AdvReac Nausea/Vom/ Verified 12/17/24 10:16 Diarrhea Antihistamines - Piperidine AdvReac Nausea/Vom/ Verified 12/17/24 10:16 Diarrhea aspirin AdvReac I'M ON Verified 12/17/24 10:16 BLOOD THINNERS codeine AdvReac Nausea Verified 12/17/24 10:16 Corticosteroids AdvReac Upset Verified 12/17/24 10:16 (Glucocorticoids) Stomach morphine AdvReac Nausea Verified 12/17/24 10:16 [id number] Reductase AdvReac Nausea Verified 12/17/24 10:16 Inhibitor (Rreiwzl-Pia-Rmd Reductase Inhibitor) Family History Mother Cancer CAD (coronary artery disease) Brain tumor Grandfather CVA (cerebral vascular accident) Father CAD (coronary artery disease) Ruptured abdominal aortic aneurysm (AAA) Sister Brain aneurysm Surgical History History of coronary artery stent placement History of appendectomy History of cholecystectomy History of angioplasty of peripheral vessel (07/11/19) Stenosis of left subclavian artery History of left heart catheterization (01/25/15) S/P coil embolization of cerebral aneurysm History of angioplasty of peripheral vessel History of right-sided carotid endarterectomy History of left-sided carotid endarterectomy History of partial thyroidectomy (11/30/05) History of hemorrhoidectomy History of hysterectomy History of section Brain aneurysm Fracture of right lower leg S/P insertion of iliac artery stent History of left breast biopsy H/O hemorrhoidectomy S/P hysterectomy H/O: S/P thyroidectomy Social History household members: none housing: apartment Smoking Status: Current every day smoker tobacco type: cigarettes alcohol intake: never caffeine: Yes Type: coffee and tea ROS ROS ED Constitutional Constitutional ED: Reports chills and sweats; Denies fever(s), subjective or weight loss Eyes Eyes: Reports none ENT ENT ED: Reports rhinorrhea; Denies ear pain Cardiovascular Cardiovascular: Reports as per HPI; Denies orthopnea or paroxysmal nocturnal dyspnea Respiratory/Chest Respiratory/Chest: Reports cough and dyspnea; Denies dyspnea on exertion, orthopnea, paroxysmal nocturnal dyspnea or sputum Gastrointestinal Gastrointestinal: Denies abdominal pain, diarrhea or vomiting Musculoskeletal Musculoskeletal: Denies arthralgias or myalgias Integumentary Denies rash Neurologic Neurologic: Denies headache(s) or paresthesias Hematologic/Lymphatic Hematologic/Lymphatic: Reports easy bruising; Denies easy bleeding EXAM Physical Exam Const Vital Signs: 12/17/24 10:13 12/17/24 11:13 12/17/24 12:00 Temperature 97.8 F Temperature Source Oral Pulse Rate 78 69 66 Respiratory Rate 20 H 20 H Blood Pressure 172/80 H 145/73 H 154/73 H Blood Pressure Mean 110 97 100 Pulse Ox 93 94 93 Oxygen Delivery Method Room Air Room Air Room Air 12/17/24 13:00 Temperature 97.9 F Temperature Source Oral Pulse Rate 62 Respiratory Rate Blood Pressure 129/69 H Blood Pressure Mean 89 Pulse Ox 93 Oxygen Delivery Method Room Air Blood pressure is elevated otherwise vital signs unremarkable. Positive well nourished and well developed Constitutional Narrative: BMI is 19.5. General Appearance ED: well developed and NAD HEENT Reports TM's clear and moist mucous membranes normocephalic and atraumatic Tympanic Membrane ED: Yes TM's clear Eyes PERRL and EOMs intact bilaterally General Eye ED: Negative for pale conjunctiva or scleral icterus Neck no lymphadenopathy, supple and no JVD Chest Wall inspection of chest normal and palpation of chest normal Resp normal respiratory effort and No clear to auscultation bilaterally Auscultation: rales bilateral base and wheezes expiratory wheezes, posterior and throughout Cardio regular rate, regular rhythm, S1 normal heart sound and S2 normal heart sound GI normal to inspection, nondistended, normoactive bowel sounds, soft to palpation, non-tender, non-distended and no masses; Negative for hepatosplenomegaly Back/Spine no CVA tenderness Extremity normal to inspection General Extremety ED: Negative for edema, pulses abnormal or tenderness General Extremity: Negative for edema or pulses abnormal Neuro oriented x3 and CN's II-XII intact bilaterally Sensorium / Orientation: awake and alert Psych mental status grossly normal Skin no rashes or lesions noted and no wounds Heart Score History: Slightly/Non-Suspicious ECG: Nonspecific Repolarization Age: >/= 65 years Risk Factors: 1 or 2 Risk Factors Troponin: </= Normal Limit Score: 4 MDM MDM History & Record Review Additional record(s) reviewed:: Prior inpatient record (Reviewed cath report and angiography of renal vessels and lower extremity exam stools.), Prior ED visit and Prior labs Lab Data Attestation: I reviewed the patient's lab results. Lab results narrative: CBC with differential reveals mild anemia with normal indices. Labs: Laboratory Results - last 24 hr 12/17/24 12/17/24 10:25 12:40 WBC 8.8 RBC 4.13 L Hgb 11.3 L Hct 35.3 L MCV 85.5 MCH 27.4 MCHC 32.0 RDW Std Deviation 49.2 H RDW Coeff of David 15.8 H Plt Count 230 MPV 9.9 Sodium 140 Potassium 4.4 Chloride 106 Carbon Dioxide 27.0 Anion Gap 7 BUN 26 H Creatinine 1.08 H Estim Creat Clear Calc 40.75 Est GFR (MDRD) Af Amer 64 Est GFR (MDRD) Non-Af 53 L BUN/Creatinine Ratio 24.1 H Glucose 96 Lactic Acid 1.5 Calcium 9.0 Troponin I High Sens 24 23 Radiography Chest X-Ray - ED: 2 View and Read by ED Physician (Independently reviewed by me at 1048. Patient has chronic changes. There is a difference in penetration and reason there is increased interstitial markings right lower lobe. Cardiac silhouette size normal. [place] is normal. [place] structures within remarkable. There is no evidence of heart failu) Diagnostic Testing: Clinical Impression(s) from Imaging Studies Chest X-Ray 12/17/24 10:27 IMPRESSION: Bilateral neck surgical clips are noted. At least mild lung hyperinflation is noted, also with mildly increased interstitial markings, suggestive of chronic lung disease. No acute pneumonic process is evident. The cardiomediastinal silhouette is within the normal range for age. No pleural effusion or pneumothorax is noted. Mild thoracic spine degenerative changes are seen. Reading Location: [address] EKG Initial EKG: Attestation: I personally reviewed and interpreted this EKG as follows: Interpretation: Sinus Rhythm (Rate is 66. Parables 152 ms. Cures durations 86 ms. QT duration 432 ms. [place] is normal. Patient has T wave abnormalities. This was noted on EKG that was obtained December 10 and December 11 and the lead to the cardiac catheterization.) Treatment and Re-Evaluation :: With 2 normal troponins and a negative delta even though her heart score is 4 the fact that she had a cardiac catheterization less than 1 week ago and no change in EKG and an improvement i.e. normalization of her troponin in my opinion she is safe to follow-up with cardiology. She has a follow-up appointment from the cardiac catheterization. Comments:: Patient refused albuterol treatments. She states she felt better after the DuoNeb. Patient was informed of her results. Patient was informed that the cause of her pain is unknown. Most likely this is due to her COPD. Discharge Plan Triage Chief Complaint: Chest Pain ED Provider: Jeffy Willoughby Dx/Rx/DC Orders Clinical Impression: Acute left-sided thoracic back pain, Bilateral carotid artery stenosis, N onobstructive atherosclerosis of coronary artery, Cardiac murmur, Acute bronchospasm, Anticoagulant long-term use, COPD exacerbation Instructions: COPD: Wheezing and Chest Tightness, ED Chest Pain, Noncardiac Prescriptions: No Action gabapentin 800 mg tablet 800 mg PO TID baclofen 20 mg tablet 20 mg PO Q6H levothyroxine 50 mcg tablet 50 mcg PO DAILY Patient Comments: take 1 tablet by mouth once daily oxycodone 10 mg tablet 10 mg PO Q6H PRN Patient Comments: take 1 tab q6 PRN for pain famotidine 40 mg tablet 40 mg PO QDAY PRN (Reason: indigestion) lisinopril 10 mg tablet 10 mg PO BID amlodipine [Norvasc] 5 mg tablet 5 mg PO QDAY Qty: 90 3RF cholecalciferol (vitamin D3) 5,000 UNIT tablet 5,000 unit PO DAILY Patient Comments: supplement dextromethorphan-guaifenesin [Mucinex DM] 60-1,200 mg tablet extended release 12 hr 1 tab PO Q12H PRN (Reason: cough/congest) aspirin 81 mg Tablet,Delayed Release (Dr/Ec) 81 mg PO BREAKFAST Qty: 30 2RF Eliquis 5 mg tablet 5 mg PO BID Qty: 60 11RF Primary Care Provider: Daron Benton Referrals: Daron Benton MD [Primary Care Provider] - 3-5 Days Print Language: German Disposition Disposition: Home, Self Care
[2024-12-17 11:05] LABS: Anion Gap 7 (5-15); BUN 26 mg/dL (7-18); BUN/Creat Ratio 24.1 RATIO (10-20); Chloride 106 mmol/L (98-107); Creatinine, Serum 1.08 mg/dL (0.55-1.02); EST Glomerular Filtration Rate 53 mL/min (>60); Est Glom Filt Rate - Afr Amer 64 mL/min (>60); Estimated Creatinine Clearance 40.75 ml/min; Glucose 96 mg/dL (74-106); Lactic Acid 1.5 mmol/L (0.4-1.9); Potassium 4.4 mmol/L (3.5-5.1); Sodium Level 140 mmol/L (136-145); Troponin-I HS (w/2H Reflex) 24 pg/mL (3.0-54.0)
[2024-12-17 11:13] VITALS: BP 145/73; PULSE 69; RESP 20; O2SAT 94
[2024-12-17 12:00] VITALS: BP 154/73; PULSE 66; O2SAT 93
[2024-12-17 12:37] LABS: Reflex Troponin-HS? (from REC) Y
[2024-12-17 13:00] VITALS: BP 129/69; PULSE 62; TEMP 36.6; O2SAT 93
[2024-12-17 13:08] LABS: Troponin-I HS 23 pg/mL (3.0-54.0)
[2024-12-17 14:25] VITALS: BP 151/94; PULSE 65; RESP 20; TEMP 36.6; O2SAT 95
== END 2024-12-17 14:45 | disposition home or self-care (01) ==
PROVIDERS: Emergency Provider Emergency Medicine; PCP Family Medicine; Visit Provider Emergency Medicine
DX: M54.6 Pain in thoracic spine (principal); G35 Multiple sclerosis; J44.1 Chronic obstructive pulmonary disease with (acute) exacerbation; I48.0 Paroxysmal atrial fibrillation; I65.23 Occlusion and stenosis of bilateral carotid arteries; I25.10 Atherosclerotic heart disease of native coronary artery without angina pectoris; R01.1 Cardiac murmur, unspecified; I10 Essential (primary) hypertension; J98.01 Acute bronchospasm; F17.210 Nicotine dependence, cigarettes, uncomplicated; Z79.01 Long term (current) use of anticoagulants; Z79.82 Long term (current) use of aspirin; Z79.899 Other long term (current) drug therapy
CPT/HCPCS: 36415; 71046; 80048; 83605; 84484; 85027; 93005; 99284; A4216

== ENCOUNTER 2025-01-10 20:39 | Inpatient (IN) | payer MEDICARE, MEDICAID, SELFPAY ==
[2025-01-10 20:42] VITALS: BP 183/101; PULSE 89; RESP 18; TEMP 36.3; O2SAT 96
[2025-01-10 20:44] VITALS: BMI 19.1
--- NOTE | 2025-01-10 20:54 | EX.ED.DYSGE1 ---
HPI History of Present Illness Chief Complaint: Hypertension [facility] Medical History Mitral stenosis Chronic low back pain Diastolic hypertension Elevated troponin Chest pain Nicotine dependence, cigarettes, uncomplicated Elevated troponin Depression On home oxygen therapy Atrial fibrillation PAF (paroxysmal atrial fibrillation) Atrial fibrillation Hypothyroidism Smoker Coronary artery disease TIA (transient ischemic attack) Influenza A Nonsustained paroxysmal supraventricular tachycardia Multiple sclerosis Nonobstructive atherosclerosis of coronary artery Peripheral vascular occlusive disease Essential (primary) hypertension Bilateral carotid artery stenosis History of transient ischemic attack (TIA) Fatty liver Thrombocytopenia GERD (gastroesophageal reflux disease) Psoriatic arthritis Psoriasis Osteoporosis Osteoarthritis Goiter Multiple sclerosis HLD (hyperlipidemia) Angina pectoris Chronic pain syndrome Home Medications ?Medication ?Instructions ?Recorded ?Last Taken ?Type cholecalciferol (vitamin D3) 125 5,000 unit PO DAILY supplement 12/16/13 12/01/23 History mcg (5,000 unit) tablet gabapentin 800 mg tablet 800 mg PO TID MS 07/16/18 12/01/23 History baclofen 20 mg tablet 20 mg PO Q6H MS 08/11/21 12/01/23 History levothyroxine 50 mcg tablet 50 mcg PO DAILY thyroid 08/11/21 12/01/23 History oxycodone 10 mg tablet 10 mg PO Q6H PRN pain 05/24/23 12/01/23 History dextromethorphan-guaifenesin ER 60 1 tab PO Q12H PRN cough/congest 02/19/24 Unknown History mg-1,200 mg tab,extend release,12hr (Mucinex DM) amlodipine 5 mg tablet (Norvasc) 5 mg PO QDAY #90 tabs 11/24/24 Unknown Rx famotidine 40 mg tablet 40 mg PO QDAY PRN indigestion 11/24/24 Unknown History lisinopril 10 mg tablet 10 mg PO BID 11/24/24 Unknown History aspirin 81 mg tablet,delayed 81 mg PO BREAKFAST #30 tabs 12/11/24 Unknown Rx release ipratropium bromide 42 mcg (0.06 2 spray intranasal TID #15 mL 12/24/24 Unknown Rx %) nasal spray Allergy/AdvReac Type Severity Reaction Status Date / Time colestipol (From Colestid) Allergy Mild unknown Verified 01/10/25 20:42 pregabalin (From Lyrica) Allergy Mild Hives Verified 01/10/25 20:42 amitriptyline Allergy Rash Verified 01/10/25 20:42 temazepam (From Restoril) AdvReac Mild Nausea/Vom/ Verified 01/10/25 20:42 Diarrhea Antihistamines - Alkylamine AdvReac Nausea/Vom/ Verified 01/10/25 20:42 Diarrhea Antihistamines - Ethanolamine AdvReac Nausea/Vom/ Verified 01/10/25 20:42 Diarrhea Antihistamines - AdvReac Nausea/Vom/ Verified 01/10/25 20:42 Ethylenediamine Diarrhea Antihistamines - Piperazine AdvReac Nausea/Vom/ Verified 01/10/25 20:42 Diarrhea Antihistamines - Piperidine AdvReac Nausea/Vom/ Verified 01/10/25 20:42 Diarrhea aspirin AdvReac I'M ON Verified 01/10/25 20:42 BLOOD THINNERS codeine AdvReac Nausea Verified 01/10/25 20:42 Corticosteroids AdvReac Upset Verified 01/10/25 20:42 (Glucocorticoids) Stomach morphine AdvReac Nausea Verified 01/10/25 20:42 Pgxaajb-XFO-WlX Reductase AdvReac Nausea Verified 01/10/25 20:42 Inhibitor (Enwbipi-Klf-Wnv Reductase Inhibitor) Family History Mother Cancer CAD (coronary artery disease) Brain tumor Grandfather CVA (cerebral vascular accident) Father CAD (coronary artery disease) Ruptured abdominal aortic aneurysm (AAA) Sister Brain aneurysm Surgical History History of coronary artery stent placement History of appendectomy History of cholecystectomy History of angioplasty of peripheral vessel (07/11/19) Stenosis of left subclavian artery History of left heart catheterization (01/25/15) S/P coil embolization of cerebral aneurysm History of angioplasty of peripheral vessel History of right-sided carotid endarterectomy History of left-sided carotid endarterectomy History of partial thyroidectomy (11/30/05) History of hemorrhoidectomy History of hysterectomy History of section Brain aneurysm Fracture of right lower leg S/P insertion of iliac artery stent History of left breast biopsy H/O hemorrhoidectomy S/P hysterectomy H/O: S/P thyroidectomy Social History household members: none housing: apartment Smoking Status: Light Smoker (<10/day) alcohol intake: never caffeine: Yes Type: coffee and tea EXAM Physical Exam Const Vital Signs: 01/10/25 20:42 01/10/25 20:55 01/10/25 22:24 Temperature 97.4 F L Temperature Source Temporal Pulse Rate 89 68 Respiratory Rate 18 16 Respiratory Effort Normal Respiratory Pattern Normal Blood Pressure 183/101 H 188/93 H Blood Pressure Mean 128 124 Pulse Ox 96 95 Oxygen Delivery Method Room Air Oxygen Flow Rate (L/min) 01/10/25 23:00 Temperature Temperature Source Pulse Rate 66 Respiratory Rate 11 L Respiratory Effort Respiratory Pattern Blood Pressure 158/83 H Blood Pressure Mean 108 Pulse Ox 98 Oxygen Delivery Method Nasal Cannula Oxygen Flow Rate (L/min) 3 MDM MDM MDM Narrative Medical decision making narrative: HISTORY OF PRESENT ILLNESS: 69-year-old female presents with concern for elevated blood pressure for the last several days. She also endorses nausea and vomiting. She notes has been taking her blood pressure medicines as prescribed. States she currently takes amlodipine and lisinopril. Her last dose of these medicines were today. States she did not vomit per se but she was coughing up phlegm. She notes chronic shortness of breath but no new shortness of breath. Denies chest pain. Denies pleuritic pain. Denies lower extremity edema or unilateral leg swelling. The patient denies recent surgery in the last 4 weeks or immobilization in the last 3 days, denies previous diagnosis of DVT or PE, hemoptysis, unilateral leg swelling or malignancy with treatment the last 6 months or palliative. No estrogen use noted. She does endorse a cough having a cold over the last several days. She also endorses a headache. Patient denies sudden onset or thunderclap headache, denies maximal intensity within 1 minute, vomiting, neck pain, stiffness, changes in vision, fever, history malignancy, syncope, or seizures associated with headache. Denies lower extremity edema. Denies chest pain. REVIEW OF SYSTEMS: Pertinent positives: Elevated blood pressure, nausea vomiting, headache Pertinent negatives: Chest pain, lower extremity edema, new shortness of breath PHYSICAL EXAM: Nursing triage notes reviewed, Vital signs reviewed Constitutional: please see mdm HENT: MMM Eyes: Pupils equal round and reactive to light, Extraocular muscles intact Neck: No stridor, no JVD, full neck ROM Lungs: Clear to auscultation, No wheezing or rales. No increased work of breathing, no conversational dyspnea, no accessory muscle use, no nasal flaring. No respiratory distress noted Heart: Regular rate and rhythm, No murmurs, No rubs and No gallops, 2+ distal pulses (radial, femoral, posterior tibial) in all extremities Abdomen: Soft, there is no tenderness, rigidity, rebound or guarding, no obvious peritoneal signs, no palpable pulsatile abdominal masses, no auscultated abdominal bruit : No CVAT Extremities: No edema Neuro: Alert and oriented x3, neuro exam at baseline, cranial nerves II through XII are intact. No pain with extraocular muscle movement. There is negative test of skew. 5 of 5 strength in upper and lower extremities in flexion extension. Intact sensation to light touch in upper and lower extremity dermatomes. No truncal or extremity ataxia. No dysdiadochokinesia. Normal gait. 2+ reflexes in upper and lower extremities. No meningeal signs. Negative Babinski. NIH of 0. Skin: No rash or lesions noted MEDICAL DECISION MAKING: Chief Complaint: Elevated blood pressure, nausea vomiting External records reviewed: Reviewed prior mission from November 2024. Echocardiogram from November 2024 shows ejection fraction of 60% Factors affecting care: Atrial fibrillation (no ac currently), brain aneurysm, hypertension Social determinants of health: none History obtained from others: none Consults: Internal medicine (Dr. Resendiz), Cardiology (Dr. Parikh) MDM Narrative: Patient was initially hypertensive with a initial blood pressure 183/101 otherwise afebrile nontoxic-appearing. Exam without focal neurologic deficits, no focal cardiopulmonary abnormalities. Patient was saturating well on her home 3 L oxygen requirement. I considered the following differential diagnosis: Endorgan damage of elevated blood pressure including ICH, ACS, CHF, kidney I obtained a broad lab and imaging workup to further elucidate etiology of patient's complaint. I initially gave Zofran and give patient her home blood pressure medications for initial blood pressure treatment. Gave IV Reglan for headache and nausea Gave oral blood pressure medicines inform amlodipine lisinopril I ordered a Noncon CT scan of the head given patient's history of brain aneurysm, complaint of headache and blood thinner use ALL IMAGES (IF OBTAINED) HAVE BEEN PERSONALLY REVIEWED AND INTERPRETED BY MYSELF. EKG with normal sinus rhythm rate of 69, normal axis, normal intervals, no STEMI. Lateral T wave inversions noted similar to prior EKG from November 2024 CBC without leukocytosis, severe anemia, no thrombocytopenia. I have personally reviewed the patient's chest x-ray. Chest x-ray is unremarkable for pulmonary edema, pneumothorax, pneumonia or focal cardiopulmonary abnormality. CT scan head is negative for ICH Initial troponin grossly elevated consistent with myocardial ischemia BNP elevated consistent with increased ventricular stretch likely from volume overload from elevated blood pressure BMP without significant electrolyte abnormality, no signs of endorgan hypoperfusion or metabolic acidosis, no acute kidney injury Discussed case with Dr. Parikh who recommended heparin drip despite the patient being currently on anticoagulation. Heparin was ordered. Discussed with hospitalist accepts patient to PCU. I considered pulmonary embolism as a potential etiology to explain the patient elevated troponin and BNP. I thought this is less likely given the patient's low risk Wells score. Lack of right heart strain on EKG, lack of hypoxia, tachycardia or new oxygen requirement. The patient and/or family, caregivers express understanding. The patient and/or family, caregivers agrees with the plan. Shared decision making: I will have a discussion with the patient and or visitors regarding risk/benefits of further testing or admission. They will be made aware of of the risk/benefits inherent in this decision they will be given the opportunity to voice understanding. Total critical care time today provided was at least 35 minutes. This excludes separately billable procedures. Critical care time (if documented) is secondary to the patient having high probability of clinically significant/life threatening deterioration in the patient's condition which required my urgent intervention. Impression: 1. Hypertensive emergency 2. NSTEMI 3. History of CAD Dispo: Admit to PCU This note was generated with [employer] dictation software. It may contain incorrect words, spelling, and punctuation that were not noted in review of the chart prior to signing. Lab Data Labs: Laboratory Results - last 24 hr 01/10/25 21:42 WBC 7.4 RBC 4.92 Hgb 13.1 Hct 40.1 MCV 81.5 MCH 26.6 L MCHC 32.7 RDW Std Deviation 44.3 H RDW Coeff of David 14.9 H Plt Count 147 L MPV 9.8 Immature Gran % (Auto) 0.400 Neut % (Auto) 80.0 H Lymph % (Auto) 9.8 L [place] % (Auto) 8.0 Eos % (Auto) 1.4 Baso % (Auto) 0.4 Absolute Neuts (auto) 5.9 Absolute Lymphs (auto) 0.72 L Nucleated RBC % 0 Sodium 134 L Potassium 3.8 Chloride 101 Carbon Dioxide 22.0 Anion Gap 11 BUN 22 H Creatinine 1.08 H Estim Creat Clear Calc 40.02 Est GFR (MDRD) Af Amer 64 Est GFR (MDRD) Non-Af 53 L BUN/Creatinine Ratio 20.4 H Glucose 114 H Calcium 9.5 Troponin I High Sens 2243 H* B-Natriuretic Peptide 411.9 H Radiography Diagnostic Testing: Clinical Impression(s) from Imaging Studies Brain CT 01/10/25 21:12 IMPRESSION: 1. No acute intracranial abnormality. 2. Chronic findings as above. Reading Location: [facility] Chest X-Ray 01/10/25 21:32 IMPRESSION: No acute airspace abnormality. Reading Location: [facility] Discharge Plan Triage Chief Complaint: Hypertension ED Provider: Benjy Flores Dx/Rx/DC Orders Primary Care Provider: Daron Benton
--- NOTE | 2025-01-10 21:12 | EKG12_ITS ---
Test Reason : DYSRHYTHMIA Blood Pressure : */* mmHG Vent. Rate : 69 BPM Atrial Rate : 69 BPM P-R Int : 120 ms QRS Dur : 98 ms QT Int : 454 ms P-R-T Axes : 66 45 71 degrees QTcB Int : 486 ms Normal sinus rhythm T wave abnormality, consider anterolateral ischemia Prolonged QT Abnormal ECG Confirmed by Roberto Smiley ([id number]), managing editor ADI CORDERO ([id number]) on 01/12/2025 10:20:17 AM Referred By: Benjy Flores Confirmed By: Roberto Smiley
--- NOTE | 2025-01-10 21:12 | CT_ITS ---
EXAM: CT brain without IV contrast CLINICAL HISTORY: Headache COMPARISON: None TECHNIQUE: Multiple contiguous axial images of the brain were obtained without the administration of intravenous contrast. Two-dimensional coronal and sagittal reformatted images were reconstructed. Low-dose imaging technique was utilized. FINDINGS: No evidence of acute intracranial hemorrhage, midline shift or mass effect. No definite CT evidence of acute territorial cortical infarction. Small chronic subcortical infarct in the left parietal lobe. Mild generalized cerebral atrophy and chronic small-vessel ischemic disease. No hydrocephalus. Aneurysm coils in the anterior suprasellar region. Calvarium is intact. Paranasal sinuses and mastoid air cells are clear. CT/Brain/Head without Contrast IMPRESSION: 1. No acute intracranial abnormality. 2. Chronic findings as above. Reading Location: [facility]
--- NOTE | 2025-01-10 21:32 | RAD_ITS ---
PROCEDURE: CHEST 1 VIEW (PORTABLE) REASON FOR EXAM: Shortness of breath TECHNIQUE: Single frontal image including the chest. COMPARISON: 12/17/2024 FINDINGS: Cardiomediastinal silhouette is within normal limits. Lungs are clear. No sizable pneumothorax. Mild dextroscoliosis. RAD/Chest 1 View (Portable) IMPRESSION: No acute airspace abnormality. Reading Location: [facility]
[2025-01-10] MEDS: Metoclopramide 10 MG/2 ML Vial 5 MG IV (21:38)
[2025-01-10] MEDS: amLODIPine 5 MG Tablet PO (21:38)
[2025-01-10] MEDS: oxyCODONE 5 MG Tablet PO (21:38)
[2025-01-10] MEDS: Lisinopril 10 MG Tablet PO (21:45)
[2025-01-10 21:53] LABS: Absolute Lymphocyte Count 0.72 X10^3/uL (0.83-4.51); Absolute Neutrophil Count 5.9 X10^3/uL (2.0-7.7); Basophil# 0.03 X10^3/uL; Basophil% 0.4 % (0-1); Eosinophils% 1.4 % (0-5); Hematocrit 40.1 % (37-47); Hemoglobin 13.1 g/dL (12.0-15.0); Lymphocyte # 0.72 X10^3/ul (0.83-4.51); Lymphocyte % 9.8 % (19-41); Mean Corp Hgb Conc 32.7 g/dL (32-36); Mean Corpuscular Hgb 26.6 pg (27.0-32.0); Mean Corpuscular Volume 81.5 fL (81-99); Mean Platelet Vol. 9.8 fl (6.2-12.0); Monocyte# 0.59 X10^3/uL; NRBC Flagged by Analyzer 0 % (0-5); Platelet Count 147 K/mm3 (150-450); RBC Distribution Width CV 14.9 % (11.6-14.6); RBC Distribution Width SD 44.3 fl (35.1-43.9); Red Blood Count 4.92 M/mm3 (4.2-5.4); White Blood Count 7.4 K/mm3 (4.4-11.0)
[2025-01-10 22:16] LABS: Anion Gap 11 (5-15); BUN 22 mg/dL (7-18); BUN/Creat Ratio 20.4 RATIO (10-20); Calcium,Total 9.5 mg/dL (8.5-10.1); Chloride 101 mmol/L (98-107); Creatinine, Serum 1.08 mg/dL (0.55-1.02); EST Glomerular Filtration Rate 53 mL/min (>60); Est Glom Filt Rate - Afr Amer 64 mL/min (>60); Estimated Creatinine Clearance 40.02 ml/min; Glucose 114 mg/dL (74-106); Potassium 3.8 mmol/L (3.5-5.1); Sodium Level 134 mmol/L (136-145); Troponin-I HS 2243 pg/mL (3.0-54.0)
[2025-01-10 22:24] VITALS: BP 188/93; PULSE 68; RESP 16; O2SAT 95
[2025-01-10 23:00] VITALS: BP 158/83; PULSE 66; RESP 11; O2SAT 98
[2025-01-10 23:09] LABS: BNP,B-Type NATRIURETIC PEPTIDE 411.9 pg/mL (0-100)
--- NOTE | 2025-01-10 23:43 | PCM.HP.STD ---
HPI - General General Date of Admission: 01/10/25 Date of Service: 01/10/25 Chief Complaint: Headache, Elevated BP x 1 week. HPI Narrative The patient is a 69 y/o F w/ PMHx: PAF, Chronic Hypoxic Hypoxic Respiratory Failure secondary to COPD with alpha-1 antitrypsin carrier status (2.5L q HS and per patient using 3L daily and PRN, last pulmonary visit noted 12/24/24), Anxiety and Depression, Tobacco use, Chronic back pain, Hx TIA, Chronic thrombocytopenia, Psoriatic arthritis, GERD, Carotid disease s/p BL CEA, Multiple sclerosis, CAD s/p PCI, PAD s/p peripheral PCI iliac artery, Hypothyroidism s/p partial thyroidectomy, Hx Brain aneurysm status post coiling, CKD stage III unclear subtype per GFR trending, Allergic rhinitis, recent discharge 12/11/2024 following evaluation and treatment of hypertensive emergency with NSTEMI with echocardiogram 60% EF, moderate to severe mitral stenosis, cardiac catheterization with 40% stenosis ostial left main and 60% stenosis mid LAD with occluded small distal diagonal branch which fills by collaterals felt likely the culprit for patient's apical wall motion abnormality on echo, cardiology evaluation with addition of aspirin and metoprolol 25 mg twice daily but continued off statin therapy given intolerance in the past with severe nausea with incidentally noted complaints of hematochezia with hemoglobin stable throughout admission who now re-presents to the [facility] ED on 01/10/25 with history of elevated blood pressure for the last several days with associated nausea and emesis noting that she is been taking her blood pressure medications as prescribed on amlodipine and lisinopril recently also initiated on metoprolol with chronic dyspnea and occasional productive cough no recent chest discomfort with additionally noted generalized headache but no light or sound sensitivity nor any changes in vision prompting eventual ED evaluation to be cautious. Patient notes she has not been taking eliquis, although she was listed on it during prior admission. She notes she was taken off it but cannot given any other information regarding discontinuation. Workup in the ED included T97.4 Temporally, heart rate 89, BP 193/101, respiratory rate 18, 96% on room air with most recent repeat vitals heart rate 66, BP 158/83, respiratory rate 11, 98% oxygenation, CBC with WBC 7.4, hemoglobin 13.1, platelet 147 with lymphopenia, BMP with sodium 134, BUN/creatinine 22/1.08, GFR 53, glucose 114, BNP 411.9, troponin 2243, CT brain with no acute intracranial abnormality, chest x-ray with no acute cardiopulmonary findings, EKG with sinus rhythm with lateral T wave inversions similar to prior EKG 11/2024 with no acute further evidence of ischemia. ED physician discussed case with Dental Assistant Instructor Dr. Parikh who requested heparin drip be started. [facility] Medical History Mitral stenosis Chronic low back pain Diastolic hypertension Elevated troponin Chest pain Nicotine dependence, cigarettes, uncomplicated Elevated troponin Depression On home oxygen therapy Atrial fibrillation PAF (paroxysmal atrial fibrillation) Atrial fibrillation Hypothyroidism Smoker Coronary artery disease TIA (transient ischemic attack) Influenza A Nonsustained paroxysmal supraventricular tachycardia Multiple sclerosis Nonobstructive atherosclerosis of coronary artery Peripheral vascular occlusive disease Essential (primary) hypertension Bilateral carotid artery stenosis History of transient ischemic attack (TIA) Fatty liver Thrombocytopenia GERD (gastroesophageal reflux disease) Psoriatic arthritis Psoriasis Osteoporosis Osteoarthritis Goiter Multiple sclerosis HLD (hyperlipidemia) Angina pectoris Chronic pain syndrome Home Medications ?Medication ?Instructions ?Recorded ?Last Taken ?Type cholecalciferol (vitamin D3) 125 5,000 unit PO DAILY supplement 12/16/13 12/01/23 History mcg (5,000 unit) tablet gabapentin 800 mg tablet 800 mg PO TID MS 07/16/18 12/01/23 History baclofen 20 mg tablet 20 mg PO Q6H MS 08/11/21 12/01/23 History levothyroxine 50 mcg tablet 50 mcg PO DAILY thyroid 08/11/21 12/01/23 History oxycodone 10 mg tablet 10 mg PO Q6H PRN pain 05/24/23 12/01/23 History dextromethorphan-guaifenesin ER 60 1 tab PO Q12H PRN cough/congest 02/19/24 Unknown History mg-1,200 mg tab,extend release,12hr (Mucinex DM) amlodipine 5 mg tablet (Norvasc) 5 mg PO QDAY #90 tabs 11/24/24 Unknown Rx famotidine 40 mg tablet 40 mg PO QDAY PRN indigestion 11/24/24 Unknown History lisinopril 10 mg tablet 10 mg PO BID 11/24/24 Unknown History aspirin 81 mg tablet,delayed 81 mg PO BREAKFAST #30 tabs 12/11/24 Unknown Rx release ipratropium bromide 42 mcg (0.06 2 spray intranasal TID #15 mL 12/24/24 Unknown Rx %) nasal spray Allergy/AdvReac Type Severity Reaction Status Date / Time colestipol (From Colestid) Allergy Mild unknown Verified 01/10/25 20:42 pregabalin (From Lyrica) Allergy Mild Hives Verified 01/10/25 20:42 amitriptyline Allergy Rash Verified 01/10/25 20:42 temazepam (From Restoril) AdvReac Mild Nausea/Vom/ Verified 01/10/25 20:42 Diarrhea Antihistamines - Alkylamine AdvReac Nausea/Vom/ Verified 01/10/25 20:42 Diarrhea Antihistamines - Ethanolamine AdvReac Nausea/Vom/ Verified 01/10/25 20:42 Diarrhea Antihistamines - AdvReac Nausea/Vom/ Verified 01/10/25 20:42 Ethylenediamine Diarrhea Antihistamines - Piperazine AdvReac Nausea/Vom/ Verified 01/10/25 20:42 Diarrhea Antihistamines - Piperidine AdvReac Nausea/Vom/ Verified 01/10/25 20:42 Diarrhea aspirin AdvReac I'M ON Verified 01/10/25 20:42 BLOOD THINNERS codeine AdvReac Nausea Verified 01/10/25 20:42 Corticosteroids AdvReac Upset Verified 01/10/25 20:42 (Glucocorticoids) Stomach morphine AdvReac Nausea Verified 01/10/25 20:42 [id number] Reductase AdvReac Nausea Verified 01/10/25 20:42 Inhibitor ([place]-Dmj-Ami Reductase Inhibitor) Family History Mother Cancer CAD (coronary artery disease) Brain tumor Grandfather CVA (cerebral vascular accident) Father CAD (coronary artery disease) Ruptured abdominal aortic aneurysm (AAA) Sister Brain aneurysm Surgical History History of coronary artery stent placement History of appendectomy History of cholecystectomy History of angioplasty of peripheral vessel (07/11/19) Stenosis of left subclavian artery History of left heart catheterization (01/25/15) S/P coil embolization of cerebral aneurysm History of angioplasty of peripheral vessel History of right-sided carotid endarterectomy History of left-sided carotid endarterectomy History of partial thyroidectomy (11/30/05) History of hemorrhoidectomy History of hysterectomy History of section Brain aneurysm Fracture of right lower leg S/P insertion of iliac artery stent History of left breast biopsy H/O hemorrhoidectomy S/P hysterectomy H/O: S/P thyroidectomy Social History household members: none housing: apartment Smoking Status: Light Smoker (<10/day) alcohol intake: never caffeine: Yes Type: coffee and tea ROS ROS Narrative Admission Review of Systems: CONSTITUTIONAL: No weight loss, fever, chills, + weakness or fatigue. HEENT: + Mild congestion, rhinorrhea, headache. Eyes: No visual loss, blurred vision, double vision or yellow sclerae. Ears, Nose, Throat: No hearing loss, sneezing. SKIN: No rash or itching, lesions, wounds. CARDIOVASCULAR: No chest pain, chest pressure or chest discomfort, palpitations, edema, orthopnea, syncopal events. RESPIRATORY: + Dyspnea, productive cough, occasional wheezing. No hemoptysis. GASTROINTESTINAL: + anorexia, occasional N/V but has chronic issues. No diarrhea, abdominal pain, melena, BRBPR. GENITOURINARY: No dysuria, frequency, urgency or retention. NEUROLOGICAL: + Headache. No dizziness, syncope, paralysis, ataxia, numbness or tingling in the extremities, focal weakness, change in bowel or bladder control, seizure. MUSCULOSKELETAL: + muscle, back pain, joint pain or stiffness. HEMATOLOGIC: No anemia. + Easy bleeding/bruising. LYMPHATICS: No enlarged nodes. No history of splenectomy. PSYCHIATRIC: + History of anxiety and depression. ENDOCRINOLOGIC: No reports of sweating, cold or heat intolerance. No polyuria or polydipsia. ALLERGIES: + Hx allergic rhinitis. Vital Signs Vital Signs Vital Signs: 01/10/25 20:42 01/10/25 20:55 01/10/25 22:24 Temperature 97.4 F L Temperature Source Temporal Pulse Rate 89 68 Respiratory Rate 18 16 Respiratory Effort Normal Respiratory Pattern Normal Blood Pressure 183/101 H 188/93 H Blood Pressure Mean 128 124 Pulse Ox 96 95 Oxygen Delivery Method Room Air Oxygen Flow Rate (L/min) 01/10/25 23:00 Temperature Temperature Source Pulse Rate 66 Respiratory Rate 11 L Respiratory Effort Respiratory Pattern Blood Pressure 158/83 H Blood Pressure Mean 108 Pulse Ox 98 Oxygen Delivery Method Nasal Cannula Oxygen Flow Rate (L/min) 3 Weight Weight: 115 lb 4.828 oz Body Mass Index (BMI) 19.1 Physical Exam Narrative Physical Examination: General: Awake, alert, oriented x 3 and cooperative, laying in the ED bed, fatigued, denies any chest discomfort, intermittent coughing during evaluation. Skin: Normal color, normal turgor, no icterus, no cyanosis except occasional stage ecchymoses, abrasion HEENT: AT/NC, EOMI, PERRLA, MMM, unable to discern carotid bruits, no marked JVD noted. Lungs: Diminished, greater bases, occasional end expiratory wheeze, coughing during evaluation. Heart: Regular rate and rhythm; no gallop, rub audible, + SM. Abdomen: Soft, NTTP, ND, normal BS, no appreciated HSM. Extremities: No cyanosis, clubbing, or edema. Neurological: Patient awake, alert, oriented as noted, cognitive function intact; pupils equally reactive to light and accommodation, cranial nerves gross normal, moving all 4 extremities, no focal deficits, strength moderately global decrease secondary to acute presentation. Psychiatric: Affect appears fatigued, no acute evidence of depressive or anxiety feelings but does have underlying history. Results Lab / Micro Data 01/10/25 21:42 01/10/25 21:42 Labs: Laboratory Results - last 24 hr 01/10/25 21:42: WBC 7.4, RBC 4.92, Hgb 13.1, Hct 40.1, MCV 81.5, MCH 26.6 L, MCHC 32.7, RDW Std Deviation 44.3 H, RDW Coeff of David 14.9 H, Plt Count 147 L, MPV 9.8, Immature Gran % (Auto) 0.400, Neut % (Auto) 80.0 H, Lymph % (Auto) 9.8 L, [place] % (Auto) 8.0, Eos % (Auto) 1.4, Baso % (Auto) 0.4, Absolute Neuts (auto) 5.9, Absolute Lymphs (auto) 0.72 L, Nucleated RBC % 0, Sodium 134 L, Potassium 3.8, Chloride 101, Carbon Dioxide 22.0, Anion Gap 11, BUN 22 H, Creatinine 1.08 H, Estim Creat Clear Calc 40.02, Est GFR (MDRD) Af Amer 64, Est GFR (MDRD) Non-Af 53 L, BUN/Creatinine Ratio 20.4 H, Glucose 114 H, Calcium 9.5, Troponin I High Sens 2243 H*, B-Natriuretic Peptide 411.9 H Imaging Radiology Impression Brain CT 01/10/25 21:12 IMPRESSION: 1. No acute intracranial abnormality. 2. Chronic findings as above. Reading Location: [facility] Chest X-Ray 01/10/25 21:32 IMPRESSION: No acute airspace abnormality. Reading Location: [facility] Assessment & Plan Assessment/Plan (1) NSTEMI, initial episode of care: PLAN: Plan The patient is a 69 y/o F w/ PMHx: PAF, Chronic Hypoxic Hypoxic Respiratory Failure secondary to COPD with alpha-1 antitrypsin carrier status (2.5L q HS and per patient using 3L daily and PRN, last pulmonary visit noted 12/24/24), Anxiety and Depression, Tobacco use, Chronic back pain, Hx TIA, Chronic thrombocytopenia, Psoriatic arthritis, GERD, Carotid disease s/p BL CEA, Multiple sclerosis, CAD s/p PCI, PAD s/p peripheral PCI iliac artery, Hypothyroidism s/p partial thyroidectomy, Hx Brain aneurysm status post coiling, CKD stage III unclear subtype per GFR trending, Allergic rhinitis, recent discharge 12/11/2024 who now re-presents to the [facility] ED on 01/10/25 with history of elevated blood pressure for the last several days with associated nausea and emesis noting that she is been taking her blood pressure medications as prescribed on amlodipine and lisinopril recently also initiated on coreg with chronic dyspnea and occasional productive cough no recent chest discomfort with additionally noted generalized headache but no light or sound sensitivity nor any changes in vision prompting eventual ED evaluation to be cautious. #1. Hypertensive emergency with associated headache, possible demand ischemia NSTEMI type II but uncertain given #2 as noted: EKG in ED w/ sinus rhythm with lateral T wave inversions similar to prior, CXR w/ no acute cardiopulmonary finding. Trop elevated, 2243 initial. Will admit to PCU, maintain on a monitored bed, continue serial cardiac enzymes and EKGs. Obtain magnesium level upon admission. Continue heparin drip initiated in the ED continue medical management w/ asa, BB. Statin intolerance with recent FLP during previous admission thus will not repeat. BP improved in the ED without any aggressive intervention, will have as needed agents and attempt to clarify but it appears that Coreg which was added during previous admission dropped off, adding back although patient may have just discontinue this but still trying to clarify. ECHO requested. Cardiology consulted. #2. Recent cough, nausea, possible acute viral syndrome complicated by Chronic Hypoxic Hypoxic Respiratory Failure secondary to COPD with alpha-1 antitrypsin carrier status (2.5L q HS and per patient using 3L daily and PRN, last pulmonary visit noted 12/24/24): Will maintain on home oxygen supplementation, maintain on ATC duonebs, PRN albuterol, encourage HOB, IS parameters, will obtain sputum Cx, respiratory viral panel, COVID PCR, procalcitonin. If indicative of bacterial etiology will initiate antibiotic therapy. #3. Valvular heart disease: 12/10/2024 echocardiogram with EF 60%, inability to assess diastolic dysfunction, LA mildly enlarged, mild MVI, moderate to severe mitral stenosis by pressure gradient. Encourage continued follow-up with cardiology as previously arranged. #4. CAD, PAD: Status post coronary and peripheral iliac artery PCI, recent evaluation and admission as noted, continue baby aspirin, noted statin intolerance, continue lisinopril, recently initiated coreg. Patient notes she has not been taking eliquis, although she was listed on it during prior admission. She notes she was taken off it but cannot given any other information regarding discontinuation. #5. History of brain aneurysm: Status post previous coiling, encourage continued follow-up outpatient and evaluation as previously arranged. #6. PAF: Continue recently initiated on coreg regimen. Patient notes she has not been taking eliquis, although she was listed on it during prior admission. She notes she was taken off it but cannot given any other information regarding discontinuation. #7. Anxiety and depression: Per current list not on any regimen, encourage continued outpatient follow-up with/counseling as previously arranged/needed. #8. History of TIA: Will continue baby aspirin, noted statin intolerance, continue hypertensive regimen. Patient notes she has not been taking eliquis, although she was listed on it during prior admission. She notes she was taken off it but cannot given any other information regarding discontinuation. #9. Carotid disease: Status post bilateral carotid endarterectomy, continue baby aspirin, noted statin intolerance, continue hypertensive regimen. Patient notes she has not been taking eliquis, although she was listed on it during prior admission. She notes she was taken off it but cannot given any other information regarding discontinuation. #10. Psoriatic arthritis: Per current list does not appear to be on any chronic suppressive type therapy, continue patient chronic pain regimen cautiously. #11. Chronic Kidney Disease Stage III, unclear subtype per GFR trending: Admission BUN/Cr 22/1.08, GFR 53, baseline renal function primarily 0.9-1.2, repeat BMP in AM. #12. Multiple sclerosis: Complicates presentation, maintain on fall precautions, continue home baclofen and gabapentin regimen, PT/OT consulted for discharge planning. #13. Hypertension: Continue home regimen including lisinopril, amlodipine, recently initiated coreg regimen, PRN hydralazine. #14. Hyperlipidemia: Noted statin intolerance, recent presentation with evaluation thus will not repeat FLP #15. Hypothyroidism: Status post partial thyroidectomy, continue patient home levothyroxine regimen. #16. Tobacco Abuse: Encouraged cessation, inpatient consultation per RT, NR if desired. #17. Allergic rhinitis: We will continue patient home ipratropium nasal spray. #18. GERD: We will continue patient home famotidine regimen. #19. Chronic thrombocytopenia: Unclear etiology, admission platelets 147, previous admission had been normal range, last noted 12/17/2024 platelets 230, continue closely monitor. #20. DVT prophylaxis: Patient notes she has not been taking eliquis, although she was listed on it during prior admission. She notes she was taken off it but cannot given any other information regarding discontinuation. Will maintain on Heparin drip per Cardiology recommendation. #21. CODE status: Patient HCPOA and living will are not in place but she notes she would want her 2 children to be her medical decision makers if necessary. Discussed CODE status at length including difference between FULL code, DNR-CCA and DNR-CC status. Following discussions about the differences in these status, requested Full Code status. Advanced Care Planning Face to Face Time: 16 minutes. Charges/Coding Visit Charges Inpatient E&M: 05896 Init Hosp L3 Procedures Hospitalists Procedures: 99995 Advncd Care Plan 30 Min
[2025-01-11] VITALS (11 sets, daily range): BP systolic 101–185; BP diastolic 64–90; PULSE 53–80; RESP 11–20; TEMP 36.2–36.8; O2SAT 93–99; BMI 18.5; BMI 18.8
[2025-01-11] MEDS: Aspirin 325 MG Tablet PO (00:14)
[2025-01-11] MEDS: HEPARIN/D5w 25,000 UNITS 25,000 UNITS/250 ML IV.SOLN. 7 UNITS CONT INF (00:16)
[2025-01-11 00:38] LABS: Prothrombin Time (Protime)PT. 12.9 SECONDS (11.7-14.9)
[2025-01-11 00:39] LABS: Partial Thromboplast Time 28.3 Seconds (24.1-36.2)
--- NOTE | 2025-01-11 01:50 | ECHOD_ITS ---
Reason For Study Reason For Study: NSTEMI Procedure This was a 2D Doppler, Color Flow transthoracic echocardiogram. Exam performed portable in patient room. Left Ventricle Normal LV size. The estimated ejection fraction is 70 %. Unable to assess diastolic dysfunction. [place] : Hypokinetic. Right Ventricle Normal RV size. Normal systolic function. Atria The left atrium is mildly enlarged. Normal right atrium. No doppler evidence for ASD. Mitral Valve Mitral valve doming/Hockey Sticking. Moderate mitral valve stenosis. Mild (1+) mitral valve insufficiency. Tricuspid Valve There is no tricuspid stenosis. Mild tricuspid valve insufficiency. Unable to estimate RV systolic pressure due to insufficient tricuspid regurgitant envelope. Aortic Valve There is no aortic stenosis. No aortic valve insufficiency. Pulmonic Valve There is no pulmonic valvular stenosis. No pulmonic valve insufficiency. Great Vessels Normal sized aortic root. Pericardium/Pleural No pericardial effusion. MMode/2D Measurements & Calculations LVIDd: 4.1 cm IVSd: 1.1 cm LAV(MOD- bp): 62.3 ml LVIDs: 2.4 cm LVPWd: 1.2 cm LAV(MOD- bp) Indexed: 40.2 ml/m2 RVDd: 3.4 cm FS: 42.2 % LAV(MOD- sp2): 54.1 ml LAV(MOD- sp4): 71.8 ml SV(MOD-sp4): 34.0 ml SV(sp4- el): 35.8 ml LVAd ap4: 20.2 cm2 LVLd ap4: 6.8 cm SI(MOD-sp4): 21.9 ml/m2 EDV(MOD-sp4): 50.9 ml EDV(sp4-el): 51.5 ml LVAs ap4: 10.5 cm2 LVLs ap4: 6.0 cm ESV(MOD-sp4): 16.9 ml ESV(sp4-el): 15.6 ml EF(MOD-sp4): 66.8 % EF(sp4-el): 69.6 % LA A4 area: 23.9 cm2 LA dimension(2D): 3.5 cm RA A4 area: 8.9 cm2 TAPSE: 1.8 cm Time Measurements MV dec time: 0.66 sec Doppler Measurements & Calculations MV E max sony: 134.0 cm/sec Lat Peak E' Sony: 5.5 cm/sec Med Peak E' Sony: 5.7 cm/sec MV A max snoy: 152.4 cm/sec E/E' lat: 24.4 E/E' med: 23.5 MV E/A: 0.88 MV V2 max: 168.4 cm/sec MV P1/2t max sony: 162.6 cm/sec Ao V2 max: 125.5 cm/sec MV max P.4 mmHg MV P1/2t: 208.2 msec Ao max P.3 mmHg MV V2 mean: 95.0 cm/sec Ao V2 mean: 88.1 cm/sec MV mean P.3 mmHg MV dec slope: 228.7 cm/sec2 Ao mean P.5 mmHg MV V2 VTI: 80.9 cm MVA(P1/2t): 1.1 cm2 Ao V2 VTI: 36.1 cm AV (velocity ratio): 0.90 LV V1 max: 119.5 cm/sec MR max sony: 530.0 cm/sec TR max sony: 267.7 cm/sec LV V1 max P.7 mmHg MR max P.3 mmHg TR max P.7 mmHg LV V1 mean P.8 mmHg LV V1 mean: 93.1 cm/sec LV V1 VTI: 32.3 cm ECHO/Echo Complete Interpretation Summary The estimated ejection fraction is 70 %. [place] : Hypokinetic. Unable to assess diastolic dysfunction. The left atrium is mildly enlarged. Mild (1+) mitral valve insufficiency. Moderate mitral valve stenosis. Ordering Physician: Sommer Resendiz Referring Physician: Benjy Flores Performed By: Eleazar Dorsey RCS
[2025-01-11] MEDS: hydrALAZINE 20 MG/ML Vial 10 MG IV (02:40)
[2025-01-11] MEDS: Ondansetron 4 MG/2 ML Vial IV ×2 (02:40→20:52)
[2025-01-11] MEDS: oxyCODONE 5 MG Tablet 10 MG PO ×3 (02:41→17:29)
[2025-01-11 04:24] LABS: Troponin-I HS 1798 pg/mL (3.0-54.0)
[2025-01-11] MEDS: Gabapentin 800 MG Tablet PO ×3 (05:16→21:00)
[2025-01-11] MEDS: Ipratropium Bromide 0.06% NASAL SPRAY 2 SPRAY NASAL ×2 (05:16→21:00)
[2025-01-11] MEDS: Mag Hydrox/Al Hydrox/Simeth 30 ML UDC PO (05:16)
[2025-01-11] MEDS: Baclofen 10 MG Tablet 20 MG PO ×3 (05:16→17:29)
[2025-01-11] MEDS: Levothyroxine 50 MCG Tablet PO (05:16)
[2025-01-11 05:49] LABS: Absolute Lymphocyte Count 1.07 X10^3/uL (0.83-4.51); Absolute Neutrophil Count 3.6 X10^3/uL (2.0-7.7); Basophil# 0.02 X10^3/uL; Basophil% 0.4 % (0-1); Eosinophil# 0.05 X10^3/uL; Hematocrit 39.1 % (37-47); Hemoglobin 12.5 g/dL (12.0-15.0); Lymphocyte # 1.07 X10^3/ul (0.83-4.51); Lymphocyte % 20.5 % (19-41); Mean Corpuscular Hgb 26.4 pg (27.0-32.0); Mean Corpuscular Volume 82.7 fL (81-99); Mean Platelet Vol. 10.4 fl (6.2-12.0); Monocyte# 0.49 X10^3/uL; Monocyte% 9.4 % (0-10); NRBC Flagged by Analyzer 0 % (0-5); Neutrophil # 3.56 X10^3/uL (2.7-7.7); Neutrophil % 68.3 % (47-70); Platelet Count 158 K/mm3 (150-450); RBC Distribution Width CV 14.9 % (11.6-14.6); RBC Distribution Width SD 45.2 fl (35.1-43.9); Red Blood Count 4.73 M/mm3 (4.2-5.4); White Blood Count 5.2 K/mm3 (4.4-11.0)
[2025-01-11 06:13] LABS: ALB/GLOB Ratio 0.8 RATIO (0.9-2.4); AST(SGOT) 27 U/L (15-37); Alanine Aminotransfer ALT/SGPT 22 U/L (13-56); Albumin, Serum 3.4 g/dL (3.2-5.0); Alkaline Phosphatase 182 U/L (45-117); Anion Gap 8 (5-15); BUN 22 mg/dL (7-18); BUN/Creat Ratio 20.8 RATIO (10-20); Calcium,Total 9.3 mg/dL (8.5-10.1); Chloride 101 mmol/L (98-107); Creatinine, Serum 1.06 mg/dL (0.55-1.02); EST Glomerular Filtration Rate 54 mL/min (>60); Est Glom Filt Rate - Afr Amer 66 mL/min (>60); Estimated Creatinine Clearance 39.37 ml/min; Glucose 106 mg/dL (74-106); Potassium 4.2 mmol/L (3.5-5.1); Protein, Total 7.4 g/dL (6.4-8.2); Sodium Level 135 mmol/L (136-145); Troponin-I HS 1841 pg/mL (3.0-54.0)
[2025-01-11 07:03] LABS: Partial Thromboplast Time 53.2 Seconds (24.1-36.2)
[2025-01-11] MEDS: Ipratropium/Albuterol Sulfate 3 ML AMPUL.NEB INHALATION ×2 (07:03→19:28)
[2025-01-11] MEDS: amLODIPine 5 MG Tablet PO (09:04)
[2025-01-11] MEDS: Aspirin E.C. 81 MG Tablet PO (09:04)
[2025-01-11] MEDS: Lisinopril 10 MG Tablet PO ×2 (09:04→20:56)
[2025-01-11] MEDS: Carvedilol 3.125 MG TABLET PO ×2 (09:04→17:29)
[2025-01-11] MEDS: Calcium Carbonate 500 MG Tablet PO (09:09)
[2025-01-11 10:13] LABS: Troponin-I HS 1688 pg/mL (3.0-54.0)
[2025-01-11 13:36] LABS: Partial Thromboplast Time 76.9 Seconds (24.1-36.2)
--- NOTE | 2025-01-11 13:51 | PCM.CONS.C ---
Assessment & Plan Assessment/Plan (1) Emphysema of lung: QUALIFIERS: Emphysema type: centrilobular Qualified Code(s): J43.2 - Centrilobular emphysema (2) Smoking greater than 30 pack years: (3) [place] (dyspnea on exertion): (4) Atherosclerotic heart disease of [place] coronary artery without angina pectoris: (5) Cardiac murmur: (6) Brain aneurysm: (7) New onset atrial fibrillation: (8) NSTEMI, initial episode of care: PLAN: Cardiac care plan recommendation 69-year-old female multiple medical comorbidities Known to have history of paroxysmal atrial fibrillation, chronic hypoxic respiratory failure secondary to COPD. And has been on 3 L oxygen at home. Also patient had a history of brain aneurysm status post previous coiling. I reviewed all the current evaluation which included a cardiac evaluation patient has PAF On review of the EKG normal sinus rhythm with clear evidence of T wave inversion involving anterolateral leads. Also noted patient had a history of TIA and has been on aspirin, intolerant to statin. Patient has a peripheral vascular disease and had a history of bilateral carotid endarterectomy History of multiple sclerosis. Recently patient has aortogram as well as cardiac catheterization which was in December 10, 2024 Cardiac catheterization findings of showed left main was 40% mid LAD around 60% left circumflex had mild luminal irregularities with RCA 40%. As well as PAD with abdominal aortogram showed 60-78 patient had the in-stent stenosis of the right common iliac artery with possible occluded R SFA. This presentation patient has discomfort in the epigastric and lower chest with some radiation to the left arm I reviewed the EKG which showed significant change in the form of T wave inversion noted in the anterolateral leads with In addition to that patient has significant elevated high sensitive troponin from her previous admission. She was on medical therapy. Troponin is elevated to 2243 with a B-natriuretic peptide 411 serum creatinine within normal 1.08 hemoglobin is 13.1 with a hematocrit of 40.1 and the platelet count is 147. Cardiac exam essentially normal. Echocardiogram on her last admission showed EF 60% moderate to severe mitral stenosis with mild MR and no pericardial effusion. I discussed cardiac care plan with the patient as well as the nursing staff Based on the change in her presentation the anticoagulation has been discontinued and patient started on heparin nitroglycerin as needed. Schedule for repeat cardiac catheterization to further assess for progression of CAD and possible revascularization. Carlos A Parikh MD,[facility] chiropractor assistant HPI Consult Data Date of Consult: 01/11/25 HPI Narrative Reason for Consultation: Non-STEMI HPI Narrative: ADY WALLER, is a 69 F who presents [facility] Medical History Mitral stenosis Chronic low back pain Diastolic hypertension Elevated troponin Chest pain Nicotine dependence, cigarettes, uncomplicated Elevated troponin Depression On home oxygen therapy Atrial fibrillation PAF (paroxysmal atrial fibrillation) Atrial fibrillation Hypothyroidism Smoker Coronary artery disease TIA (transient ischemic attack) Influenza A Nonsustained paroxysmal supraventricular tachycardia Multiple sclerosis Nonobstructive atherosclerosis of coronary artery Peripheral vascular occlusive disease Essential (primary) hypertension Bilateral carotid artery stenosis History of transient ischemic attack (TIA) Fatty liver Thrombocytopenia GERD (gastroesophageal reflux disease) Psoriatic arthritis Psoriasis Osteoporosis Osteoarthritis Goiter Multiple sclerosis HLD (hyperlipidemia) Angina pectoris Chronic pain syndrome Home Medications ?Medication ?Instructions ?Recorded ?Last Taken ?Type cholecalciferol (vitamin D3) 125 5,000 unit PO DAILY supplement 12/16/13 12/01/23 History mcg (5,000 unit) tablet gabapentin 800 mg tablet 800 mg PO TID MS 07/16/18 12/01/23 History baclofen 20 mg tablet 20 mg PO Q6H MS 08/11/21 12/01/23 History levothyroxine 50 mcg tablet 50 mcg PO DAILY thyroid 08/11/21 12/01/23 History oxycodone 10 mg tablet 10 mg PO Q6H PRN pain 05/24/23 12/01/23 History dextromethorphan-guaifenesin ER 60 1 tab PO Q12H PRN cough/congest 02/19/24 Unknown History mg-1,200 mg tab,extend release,12hr (Mucinex DM) amlodipine 5 mg tablet (Norvasc) 5 mg PO QDAY #90 tabs 11/24/24 Unknown Rx famotidine 40 mg tablet 40 mg PO QDAY PRN indigestion 11/24/24 Unknown History lisinopril 10 mg tablet 10 mg PO BID 11/24/24 Unknown History aspirin 81 mg tablet,delayed 81 mg PO BREAKFAST #30 tabs 12/11/24 Unknown Rx release ipratropium bromide 42 mcg (0.06 2 spray intranasal TID #15 mL 12/24/24 Unknown Rx %) nasal spray Allergy/AdvReac Type Severity Reaction Status Date / Time colestipol (From Colestid) Allergy Mild unknown Verified 01/10/25 20:42 pregabalin (From Lyrica) Allergy Mild Hives Verified 01/10/25 20:42 amitriptyline Allergy Rash Verified 01/10/25 20:42 temazepam (From Restoril) AdvReac Mild Nausea/Vom/ Verified 01/10/25 20:42 Diarrhea Antihistamines - Alkylamine AdvReac Nausea/Vom/ Verified 01/10/25 20:42 Diarrhea Antihistamines - Ethanolamine AdvReac Nausea/Vom/ Verified 01/10/25 20:42 Diarrhea Antihistamines - AdvReac Nausea/Vom/ Verified 01/10/25 20:42 Ethylenediamine Diarrhea Antihistamines - Piperazine AdvReac Nausea/Vom/ Verified 01/10/25 20:42 Diarrhea Antihistamines - Piperidine AdvReac Nausea/Vom/ Verified 01/10/25 20:42 Diarrhea aspirin AdvReac I'M ON Verified 01/10/25 20:42 BLOOD THINNERS codeine AdvReac Nausea Verified 01/10/25 20:42 Corticosteroids AdvReac Upset Verified 01/10/25 20:42 (Glucocorticoids) Stomach morphine AdvReac Nausea Verified 01/10/25 20:42 Djbogya-ADT-PjC Reductase AdvReac Nausea Verified 01/10/25 20:42 Inhibitor (Slfodlz-Chv-Ovu Reductase Inhibitor) Family History Mother Cancer CAD (coronary artery disease) Brain tumor Grandfather CVA (cerebral vascular accident) Father CAD (coronary artery disease) Ruptured abdominal aortic aneurysm (AAA) Sister Brain aneurysm Surgical History History of coronary artery stent placement History of appendectomy History of cholecystectomy History of angioplasty of peripheral vessel (07/11/19) Stenosis of left subclavian artery History of left heart catheterization (01/25/15) S/P coil embolization of cerebral aneurysm History of angioplasty of peripheral vessel History of right-sided carotid endarterectomy History of left-sided carotid endarterectomy History of partial thyroidectomy (11/30/05) History of hemorrhoidectomy History of hysterectomy History of section Brain aneurysm Fracture of right lower leg S/P insertion of iliac artery stent History of left breast biopsy H/O hemorrhoidectomy S/P hysterectomy H/O: S/P thyroidectomy Social History household members: none housing: apartment Smoking Status: Light Smoker (<10/day) alcohol intake: never caffeine: Yes Type: coffee and tea Physical Exam Cardio Cardio Narrative: Patient seen and evaluated at bedside along with the nursing staff She is complaining of left shoulder discomfort which is improving. As well she was complaining of epigastric and lower chest burning sensation. Review of the chain maker loom control showed normal sinus rhythm Cardiovascular Rodney S1-S2 is regular Chest exam clear to auscultation bilateral. Risk Stratification Risk Stratification Applicable: No Objective Data Vital Signs: Vital Signs Temp Pulse Resp BP Pulse Ox O2 Del Method O2 Flow Rate 98.1 F 65 16 132/73 H 99 Room Air 3 01/11/25 08:55 01/11/25 08:55 01/11/25 08:55 01/11/25 08:55 01/11/25 08:55 01/11/25 09:00 01/11/25 12:20 Oxygen Flow Rate (L/min) 3 Oxygen Delivery Method Room Air Weight: 113 lb 5.082 oz Body Mass Index (BMI) 18.8 Intake & Output: Intake and Output for Last 24 Hours 01/09/25 01/10/25 01/11/25 23:59 23:59 23:59 Intake Total 391.20 / 391.20 Balance 391.20 / 391.20 Lab / Micro Data 01/11/25 05:19 01/11/25 05:19 Labs: Laboratory Results - last 24 hr 01/10/25 21:42: WBC 7.4, RBC 4.92, Hgb 13.1, Hct 40.1, MCV 81.5, MCH 26.6 L, MCHC 32.7, RDW Std Deviation 44.3 H, RDW Coeff of David 14.9 H, Plt Count 147 L, MPV 9.8, Immature Gran % (Auto) 0.400, Neut % (Auto) 80.0 H, Lymph % (Auto) 9.8 L, [place] % (Auto) 8.0, Eos % (Auto) 1.4, Baso % (Auto) 0.4, Absolute Neuts (auto) 5.9, Absolute Lymphs (auto) 0.72 L, Nucleated RBC % 0, Sodium 134 L, Potassium 3.8, Chloride 101, Carbon Dioxide 22.0, Anion Gap 11, BUN 22 H, Creatinine 1.08 H, Estim Creat Clear Calc 40.02, Est GFR (MDRD) Af Amer 64, Est GFR (MDRD) Non-Af 53 L, BUN/Creatinine Ratio 20.4 H, Glucose 114 H, Calcium 9.5, Magnesium 2.0, Troponin I High Sens 2243 H*, B-Natriuretic Peptide 411.9 H 01/11/25 00:18: PT 12.9, INR 1.0, APTT 28.3 01/11/25 03:19: Troponin I High Sens 1798 H* 01/11/25 05:19: WBC 5.2, RBC 4.73, Hgb 12.5, Hct 39.1, MCV 82.7, MCH 26.4 L, MCHC 32.0, RDW Std Deviation 45.2 H, RDW Coeff of David 14.9 H, Plt Count 158, MPV 10.4, Immature Gran % (Auto) 0.400, Neut % (Auto) 68.3, Lymph % (Auto) 20.5, [place] % (Auto) 9.4, Eos % (Auto) 1.0, Baso % (Auto) 0.4, Absolute Neuts (auto) 3.6, Absolute Lymphs (auto) 1.07, Nucleated RBC % 0, Sodium 135 L, Potassium 4.2, Chloride 101, Carbon Dioxide 25.0, Anion Gap 8, BUN 22 H, Creatinine 1.06 H, Estim Creat Clear Calc 39.37, Est GFR (MDRD) Af Amer 66, Est GFR (MDRD) Non-Af 54 L, BUN/Creatinine Ratio 20.8 H, Glucose 106, Calcium 9.3, Total Bilirubin 0.30, AST 27, ALT 22, Alkaline Phosphatase 182 H, Troponin I High Sens 1841 H*, Total Protein 7.4, Albumin 3.4, Globulin 4.0, Albumin/Globulin Ratio 0.8 L 01/11/25 06:29: APTT 53.2 H 01/11/25 09:20: Troponin I High Sens 1688 H* 01/11/25 13:20: APTT 76.9 H Micro: Microbiology 01/11/25 00:40 Mucosa - Nose Respiratory Panel (PCR) - Final 01/11/25 03:56 Mucosa - Nasopharyngeal Coronavirus COVID-19 PCR - Final Cardiology Labs/Tests 01/10/25 21:42: WBC 7.4, RBC 4.92, Hgb 13.1, Hct 40.1, MCV 81.5, MCH 26.6 L, MCHC 32.7, Plt Count 147 L, MPV 9.8, Immature Gran % (Auto) 0.400, Neut % (Auto) 80.0 H, Lymph % (Auto) 9.8 L, [place] % (Auto) 8.0, Eos % (Auto) 1.4, Baso % (Auto) 0.4, Absolute Neuts (auto) 5.9, Nucleated RBC % 0, Sodium 134 L, Potassium 3.8, Chloride 101, Carbon Dioxide 22.0, Anion Gap 11, BUN 22 H, Creatinine 1.08 H, Est GFR (MDRD) Af Amer 64, Est GFR (MDRD) Non-Af 53 L, BUN/Creatinine Ratio 20.4 H, Glucose 114 H, Calcium 9.5, Magnesium 2.0, B-Natriuretic Peptide 411.9 H 01/11/25 00:18: PT 12.9, INR 1.0, APTT 28.3 01/11/25 05:19: WBC 5.2, RBC 4.73, Hgb 12.5, Hct 39.1, MCV 82.7, MCH 26.4 L, MCHC 32.0, Plt Count 158, MPV 10.4, Immature Gran % (Auto) 0.400, Neut % (Auto) 68.3, Lymph % (Auto) 20.5, [place] % (Auto) 9.4, Eos % (Auto) 1.0, Baso % (Auto) 0.4, Absolute Neuts (auto) 3.6, Nucleated RBC % 0, Sodium 135 L, Potassium 4.2, Chloride 101, Carbon Dioxide 25.0, Anion Gap 8, BUN 22 H, Creatinine 1.06 H, Est GFR (MDRD) Af Amer 66, Est GFR (MDRD) Non-Af 54 L, BUN/Creatinine Ratio 20.8 H, Glucose 106, Calcium 9.3, Total Bilirubin 0.30 01/11/25 06:29: APTT 53.2 H 01/11/25 13:20: APTT 76.9 H Rhythm: EKG: ECHO: Stress Test: Cardiac Cath: PCI: CT Surgery: Holter monitor: EPS: PPM: CXR: Chest CT Scan: Radiography Diagnostic Testing: Radiology Impression Brain CT 01/10/25 21:12 IMPRESSION: 1. No acute intracranial abnormality. 2. Chronic findings as above. Reading Location: [facility] Chest X-Ray 01/10/25 21:32 IMPRESSION: No acute airspace abnormality. Reading Location: [facility]
--- NOTE | 2025-01-11 15:35 | PCM.PROGNOTE ---
Subjective Subjective Patient seen and examined. She said she felt much better today and her breathing had improved. Review of systems is otherwise negative. Objective Data Objective Data Vital Signs: Vital Signs Temp Pulse Resp BP Pulse Ox O2 Del Method O2 Flow Rate 98 F 53 L 16 125/74 H 97 Nasal Cannula 3 01/11/25 13:53 01/11/25 13:53 01/11/25 13:53 01/11/25 13:53 01/11/25 13:53 01/11/25 13:53 01/11/25 13:53 Oxygen Flow Rate (L/min) 3 Oxygen Delivery Method Nasal Cannula Weight: 113 lb 5.082 oz Body Mass Index (BMI) 18.8 Intake & Output: Intake and Output for Last 24 Hours 01/09/25 01/10/25 01/11/25 23:59 23:59 23:59 Intake Total 391.20 / 391.20 Balance 391.20 / 391.20 Medical Nutrition Assessment Dietitian: Malnutrition Criteria Met Start: 01/11/25 13:35 Freq: Status: Active Protocol: Document 01/11/25 13:35 RMA (Rec: 01/11/25 13:35 RMA [id number]) Nutrition Malnutrition Evidence of Yes Malnutrition Exists Malnutrition (severe Acute Illness/Injury ): Evidenced By Suboptimal Energy Intake (Severe),Weight Loss (Severe), Physical Changes (Moderate) Clinical Problem Acute Disease or Injury Related Malnutrition Etiology Severe protein-calorie malnutrition in the context of acute illness related to inadequate oral intake Signs/Symptoms as evidenced by ~6% unintentional weight loss x 1-2 months, ongoing poor appetite and inadequate oral intake meeting less than 50% estimated nutrition needs x 1 month, moderate muscle wasting and fat depletion noted, visible in the clavicle, orbitals and temporal regions. Status Active Problem Recommendation Dietitian Resume PO with liberalized regular diet after testing Recommendations/ to promote improved PO. Changes Pt will consider ONS to prevent further energy/protein depletion; refusing at this time. May need to consider enteral nutrition support if weight continues to decline and oral intake remains inadequate. Lab / Micro Data 01/11/25 05:19 01/11/25 05:19 Labs: Laboratory Results - last 24 hr 01/10/25 21:42: WBC 7.4, RBC 4.92, Hgb 13.1, Hct 40.1, MCV 81.5, MCH 26.6 L, MCHC 32.7, RDW Std Deviation 44.3 H, RDW Coeff of David 14.9 H, Plt Count 147 L, MPV 9.8, Immature Gran % (Auto) 0.400, Neut % (Auto) 80.0 H, Lymph % (Auto) 9.8 L, [place] % (Auto) 8.0, Eos % (Auto) 1.4, Baso % (Auto) 0.4, Absolute Neuts (auto) 5.9, Absolute Lymphs (auto) 0.72 L, Nucleated RBC % 0, Sodium 134 L, Potassium 3.8, Chloride 101, Carbon Dioxide 22.0, Anion Gap 11, BUN 22 H, Creatinine 1.08 H, Estim Creat Clear Calc 40.02, Est GFR (MDRD) Af Amer 64, Est GFR (MDRD) Non-Af 53 L, BUN/Creatinine Ratio 20.4 H, Glucose 114 H, Calcium 9.5, Magnesium 2.0, Troponin I High Sens 2243 H*, B-Natriuretic Peptide 411.9 H 01/11/25 00:18: PT 12.9, INR 1.0, APTT 28.3 01/11/25 03:19: Troponin I High Sens 1798 H* 01/11/25 05:19: WBC 5.2, RBC 4.73, Hgb 12.5, Hct 39.1, MCV 82.7, MCH 26.4 L, MCHC 32.0, RDW Std Deviation 45.2 H, RDW Coeff of David 14.9 H, Plt Count 158, MPV 10.4, Immature Gran % (Auto) 0.400, Neut % (Auto) 68.3, Lymph % (Auto) 20.5, [place] % (Auto) 9.4, Eos % (Auto) 1.0, Baso % (Auto) 0.4, Absolute Neuts (auto) 3.6, Absolute Lymphs (auto) 1.07, Nucleated RBC % 0, Sodium 135 L, Potassium 4.2, Chloride 101, Carbon Dioxide 25.0, Anion Gap 8, BUN 22 H, Creatinine 1.06 H, Estim Creat Clear Calc 39.37, Est GFR (MDRD) Af Amer 66, Est GFR (MDRD) Non-Af 54 L, BUN/Creatinine Ratio 20.8 H, Glucose 106, Calcium 9.3, Total Bilirubin 0.30, AST 27, ALT 22, Alkaline Phosphatase 182 H, Troponin I High Sens 1841 H*, Total Protein 7.4, Albumin 3.4, Globulin 4.0, Albumin/Globulin Ratio 0.8 L 01/11/25 06:29: APTT 53.2 H 01/11/25 09:20: Troponin I High Sens 1688 H* 01/11/25 13:20: APTT 76.9 H Micro: Microbiology 01/11/25 00:40 Mucosa - Nose Respiratory Panel (PCR) - Final 01/11/25 03:56 Mucosa - Nasopharyngeal Coronavirus COVID-19 PCR - Final Radiography Diagnostic Testing: Radiology Impression Brain CT 01/10/25 21:12 IMPRESSION: 1. No acute intracranial abnormality. 2. Chronic findings as above. Reading Location: [facility] Chest X-Ray 01/10/25 21:32 IMPRESSION: No acute airspace abnormality. Reading Location: [facility] Physical Exam Const alert, oriented x3, no apparent distress and well nourished General Appearance: cooperative and well developed HEENT normocephalic, head/scalp atraumatic, moist oral mucous membranes and oropharynx normal Eyes PERRL and EOMs intact bilaterally Neck no lymphadenopathy and supple Lymph Lymphatic: no lymphadenopathy noted and no lymphedema noted Resp Resp Narrative: mildly diminished breath sounds bibasally, no wheezes or crackles. On 2L of oxygen. Cardio regular rate, regular rhythm, S1 normal heart sound, S2 normal heart sound and no murmurs GI normal to inspection, nondistended, normoactive bowel sounds, soft to palpation, non-tender and non-distended Extremity normal capillary refill, no clubbing, cyanosis or edema and no calf tenderness General Extremity: no tenderness to palpation of joints or extremities Neuro CN's II-XII intact bilaterally, no focal motor deficits and no sensory deficits noted Motor Exam: strength 5/5 throughout and general weakness Psych thought process normal, cooperative and affect normal Appearance: appropriate Assessment & Plan Assessment/Plan (1) NSTEMI, initial episode of care: PLAN: Plan #Hypertensive emergency Resolved. Blood pressure is much more improved. EKG showed some lateral T wave inversions but this was similar to previous EKGs. On Coreg, lisinopril and amlodipine. IV hydralazine prn. 2D echo also ordered. #Type 2 nonstemi Troponins were elevated on admission. However she denies any chest pain. EKG showed lateral T wave inversions similar to previous EKGs. On heparin drip. Cardiology consulted. 2D echo ordered. Await cardiology recommendations. For cardiac cath tomorrow. BNP also elevated at 411 #Chronic respiratory failure due to alpha 1 antitrypsin deficiency and COPD On 2 to 3 L of oxygen at home. Titrate oxygen to maintain saturation above 90%. Breathing treatments bronchodilators. Respiratory panel is negative. #History of CAD: S/p PCI. On Coreg and lisinopril. On aspirin. #History of brain aneurysm: S/p coiling. #Paroxysmal A-fib: On Coreg. Supposed be on Eliquis but has not been compliant with this. #History of carotid artery disease: S/p bilateral carotid endarterectomy. On aspirin. Not on statin as she is allergic to it. History of multiple sclerosis: On baclofen and gabapentin #Hypothyroidism: S/p partial thyroidectomy. On Synthroid #Nicotine dependence: Counseled to quit #GERD: On PPI DVT prophylaxis: On heparin drip currently due to non-STEMI CODE STATUS: Full code Charges/Coding Visit Charges Inpatient E&M: 77640 Subs Hosp L2
[2025-01-11 18:02] LABS: Partial Thromboplast Time 64.4 Seconds (24.1-36.2)
[2025-01-11] MEDS: guaiFENesin 1,200 MG Tablet 1200 MG PO (20:59)
--- NOTE | 2025-01-11 23:55 | NURSING ---
APTT 60.4 No change in Heparin GTT. Continue at 7000 units/7cc/hr. This is the second draw with in goal range. Will recheck APTT in 6 hours. (Unable to titrate med on MAR because ER bag is still hanging. Spoke with pharmacy, unable to change mar to be able to document there.)
[2025-01-12] VITALS (7 sets, daily range): BP systolic 108–136; BP diastolic 62–94; PULSE 50–97; RESP 16–19; TEMP 36.2–36.8; O2SAT 94–100; BMI 18.8
[2025-01-12 00:18] LABS: Partial Thromboplast Time 60.2 Seconds (24.1-36.2)
[2025-01-12] MEDS: HEPARIN/D5w 25,000 UNITS 25,000 UNITS/250 ML IV.SOLN. 7 UNITS CONT INF (00:55)
[2025-01-12] MEDS: oxyCODONE 5 MG Tablet 10 MG PO ×3 (04:14→18:26)
[2025-01-12 06:00] LABS: Partial Thromboplast Time 76.6 Seconds (24.1-36.2)
[2025-01-12] MEDS: Lisinopril 10 MG Tablet PO ×2 (06:43→23:25)
[2025-01-12] MEDS: Aspirin E.C. 81 MG Tablet PO (06:44)
[2025-01-12] MEDS: amLODIPine 5 MG Tablet PO (06:44)
[2025-01-12] MEDS: Carvedilol 3.125 MG TABLET PO (06:44)
[2025-01-12] MEDS: Levothyroxine 50 MCG Tablet PO (06:45)
[2025-01-12] MEDS: Ipratropium/Albuterol Sulfate 3 ML AMPUL.NEB INHALATION ×2 (07:12→20:17)
--- NOTE | 2025-01-12 10:23 | PCM.PN.CARD ---
Subjective Subjective Patient seen at the bedside. She is resting comfortably in the recumbent position. She denies any current chest discomfort. The patient was recently cath December 10, [address] Weiner. We reviewed those cath films which showed small distal diagonal occlusion that filled via collateral from the right system. The right coronary was dominant with minimal luminal irregularities the circumflex was a large vessel that was free of any significant disease the LAD was tortuous consistent with the known patient's severe hypertension. There was an area which appeared to be potentially 50% stenosed in the mid segment at the takeoff of the large diagonal. The patient's initial enzymes were 2200 and they are down to 1600. BNP was 411 which is under the 900 cutoff for heart failure for her age group. The patient also has peripheral vascular disease with an occluded right subclavian which she has had a bypass for. Objective Data Vital Signs: Vital Signs Temp Pulse Resp BP Pulse Ox O2 Del Method O2 Flow Rate 97.1 F L 56 L 18 113/70 96 Nasal Cannula 3 01/12/25 10:20 01/12/25 10:20 01/12/25 10:20 01/12/25 10:20 01/12/25 10:20 01/12/25 10:20 01/12/25 10:20 Oxygen Flow Rate (L/min) 3 Oxygen Delivery Method Nasal Cannula Weight: 113 lb 8.609 oz Body Mass Index (BMI) 18.8 Intake & Output: Intake and Output for Last 24 Hours 01/10/25 01/11/25 01/12/25 23:59 23:59 23:59 Intake Total 391.20 / 1191.20 837.45 / 837.45 Balance 391.20 / 1191.20 837.45 / 837.45 Lab / Micro Data 01/11/25 05:19 01/11/25 05:19 Labs: Laboratory Results - last 24 hr 01/11/25 13:20: APTT 76.9 H 01/11/25 17:42: APTT 64.4 H 01/11/25 23:55: APTT 60.2 H 01/12/25 05:41: APTT 76.6 H Micro: Microbiology 01/11/25 00:40 Mucosa - Nose Respiratory Panel (PCR) - Final 01/11/25 03:56 Mucosa - Nasopharyngeal Coronavirus COVID-19 PCR - Final Rhythm Strip Rhythm Strip: Sinus Rhythm Rate: 58 Cardiology Labs/Tests 01/11/25 13:20: APTT 76.9 H 01/11/25 17:42: APTT 64.4 H 01/11/25 23:55: APTT 60.2 H 01/12/25 05:41: APTT 76.6 H Rhythm: EKG: ECHO: Stress Test: Cardiac Cath: PCI: CT Surgery: Holter monitor: EPS: PPM: CXR: Chest CT Scan: Physical Exam Const alert and oriented x3 HEENT normocephalic Eyes PERRL Chest inspection of chest normal Resp normal respiratory effort and clear to auscultation bilaterally Cardio regular rate, regular rhythm, S1 normal heart sound, S2 normal heart sound, no murmurs, no rub and no gallops GI normal to inspection, nondistended, normoactive bowel sounds Extremity no pedal edema Neuro Neuro Narrative: Alert and oriented x 3 Psych mental status grossly normal Assessment & Plan Assessment/Plan (1) Hypertensive emergency: PLAN: Patient was admitted with a hypertensive emergency blood pressures documented over 200 systolic in the home environment. She reports she has had difficulty in controlling her labile blood pressure in the home environment. It is come under much better control here at bed rest on her current meds. The patient did have elevated troponins that have trended downward slightly. (2) Elevated troponin: PLAN: The patient's troponins were 2200 that have trended down to 1600. Her BNP is negative for definitive heart failure. She has been severely hypertensive in her home environment. I feel this likely represents demand ischemia in the face of minimal if any chest discomfort which has been described as a burning sensation which apparently started after she started aspirin a month ago after her heart catheterization. Her heart cath 1 month ago showed small vessel disease in a diagonal branch at the very terminal and. It feel via collateral from the right coronary artery the right coronary was dominant and free of any significant disease the circumflex did not have any significant disease and there was a question of a 50% stenosis in the mid LAD at a large diagonal branch it was very tortuous. It is consistent with her longstanding hypertension. At this point time given the fact she was cath last month I would recommend deferring the catheterization and reevaluating her LV function with limited echocardiogram which is pending at this time. (3) PAF (paroxysmal atrial fibrillation): PLAN: Patient is sinus rhythm at this point in time I would recommend we stop her heparin and reinstitute her Eliquis. I would hold aspirin at this time given her dyspepsia that started with it. The patient carries a history of mitral stenosis will reevaluate that with her echo which is pending at this time. PLAN: Plan 1. Would defer left heart catheterization at this point in time. 2. Follow-up on echocardiogram for LV function and valvular heart disease. 3. Would discontinue heparin and reinstitute Eliquis but would hold on the aspirin given the dyspepsia that started last month when she started on aspirin. 4. Will follow-up with you in the next 24 hours. Charges/Coding Visit Charges Inpatient E&M: 28315 [facility] Hosp L3
[2025-01-12] MEDS: Gabapentin 800 MG Tablet PO ×2 (13:14→23:24)
[2025-01-12] MEDS: Baclofen 10 MG Tablet 20 MG PO ×3 (13:14→23:27)
[2025-01-12] MEDS: guaiFENesin 1,200 MG Tablet 1200 MG PO ×2 (13:18→23:24)
[2025-01-12] MEDS: Calcium Carbonate 500 MG Tablet PO (14:27)
--- NOTE | 2025-01-12 18:33 | PN.HOSP_ITS ---
Reason for Visit Reason for Visit: Diagnoses Nicotine dependence, cigarettes, uncomplicated (01/10/25) Hypertensive emergency (01/10/25) Non-ST elevation (NSTEMI) myocardial infarction (01/10/25) Atherosclerotic heart disease of [place] coronary artery without angina pectoris (01/10/25) Paroxysmal atrial fibrillation (01/10/25) Unspecified atrial fibrillation (01/10/25) Cerebral aneurysm, nonruptured (01/10/25) Centrilobular emphysema (01/10/25) Cardiac murmur, unspecified (01/10/25) Other forms of dyspnea (01/10/25) Other specified abnormal findings of blood chemistry (01/10/25) Subjective Subjective Patient was seen and examined today, I talked briefly with cardiology about her care, cardiology has decided that they do not want to proceed with a cardiac catheterization, they will reevaluate the patient in the morning and they feel that the patient's elevated troponins were indicative of demand ischemia. Patient's echocardiogram showed an ejection fraction of 70%. Objective Data Objective Data Vital Signs: Vital Signs Temp Pulse Resp BP Pulse Ox O2 Del Method O2 Flow Rate 98.2 F 58 L 18 124/70 H 98 Nasal Cannula 3 01/12/25 16:47 01/12/25 16:47 01/12/25 16:47 01/12/25 16:47 01/12/25 16:47 01/12/25 16:47 01/12/25 16:47 Oxygen Flow Rate (L/min) 3 Oxygen Delivery Method Nasal Cannula Weight: 51.5 kg Body Mass Index (BMI) 18.8 Intake & Output: Intake and Output for Last 24 Hours 01/10/25 01/11/25 01/12/25 23:59 23:59 23:59 Intake Total 391.20 / 1191.20 1117.32 / 1117.32 Balance 391.20 / 1191.20 1117.32 / 1117.32 Medical Nutrition Assessment Dietitian: Malnutrition Criteria Met Start: 01/11/25 13:35 Freq: Status: Active Protocol: Document 01/11/25 13:35 RMA (Rec: 01/11/25 13:35 RMA [id number]) Nutrition Malnutrition Evidence of Yes Malnutrition Exists Malnutrition (severe Acute Illness/Injury ): Evidenced By Suboptimal Energy Intake (Severe),Weight Loss (Severe), Physical Changes (Moderate) Clinical Problem Acute Disease or Injury Related Malnutrition Etiology Severe protein-calorie malnutrition in the context of acute illness related to inadequate oral intake Signs/Symptoms as evidenced by ~6% unintentional weight loss x 1-2 months, ongoing poor appetite and inadequate oral intake meeting less than 50% estimated nutrition needs x 1 month, moderate muscle wasting and fat depletion noted, visible in the clavicle, orbitals and temporal regions. Status Active Problem Recommendation Dietitian Resume PO with liberalized regular diet after testing Recommendations/ to promote improved PO. Changes Pt will consider ONS to prevent further energy/protein depletion; refusing at this time. May need to consider enteral nutrition support if weight continues to decline and oral intake remains inadequate. Lab / Micro Data 01/11/25 05:19 01/11/25 05:19 Labs: Laboratory Results - last 24 hr 01/11/25 23:55: APTT 60.2 H 01/12/25 05:41: APTT 76.6 H Micro: Microbiology 01/11/25 00:40 Mucosa - Nose Respiratory Panel (PCR) - Final 01/11/25 03:56 Mucosa - Nasopharyngeal Coronavirus COVID-19 PCR - Final Radiography Diagnostic Testing: Radiology Impression Echocardiogram 01/11/25 01:50 Interpretation Summary The estimated ejection fraction is 70 %. [place] : Hypokinetic. Unable to assess diastolic dysfunction. The left atrium is mildly enlarged. Mild (1+) mitral valve insufficiency. Moderate mitral valve stenosis. Ordering Physician: Sommer Resendiz Referring Physician: Benjy Flores Performed By: Eleazar Dorsey RCS Rhythm Strip Rhythm Strip: Sinus Rhythm Rate: 58 Physical Exam Const alert, oriented x3, no apparent distress and healthy appearing General Appearance: cooperative, well kempt and well developed Orientation / Consciousness: awake, oriented to person, oriented to place and oriented to time HEENT normocephalic and moist oral mucous membranes Eyes PERRL, EOMs intact bilaterally and conjunctivae normal Neck supple, no JVD, thyroid normal and no carotid bruits General: trachea midline Resp normal respiratory effort and clear to auscultation bilaterally Auscultation: Negative for rales, rhonchi or wheezes Cardio regular rate, regular rhythm, no murmurs, no rub and no gallops GI normal to inspection, nondistended, normoactive bowel sounds, soft to palpation, non-tender and non-distended Extremity no clubbing, cyanosis or edema Skin no rashes or lesions noted General Skin Exam: no breakdown Neuro oriented x3, CN's II-XII intact bilaterally, no focal motor deficits and no sensory deficits noted Sensorium / Orientation: awake and alert Speech: speech normal Psych affect normal Assessment & Plan Assessment/Plan (1) Elevated troponin: PLAN: Plan 1. Hypertensive emergency #2 demand ischemia secondary to hypertensive emergency #3 coronary artery disease #4 paroxysmal A-fib I do not feel the patient has had a type II [place] Total clinical time spent by myself addressing the patient's medical issues, reviewing all of her data, and collaborating with patient's care team: 35 minutes Charges/Coding Visit Charges Inpatient E&M: 03377 Subs Hosp L2
[2025-01-12] MEDS: Ipratropium Bromide 0.06% NASAL SPRAY 2 SPRAY NASAL (23:24)
[2025-01-12] MEDS: 0.9% Saline Lock 10 ML Syringe IV (23:25)
[2025-01-12] MEDS: APIXABAN 5 MG TABLET PO (23:26)
[2025-01-12] MEDS: Docusate Sodium 100 MG Capsule PO (23:41)
[2025-01-13] VITALS (7 sets, daily range): BP systolic 98–124; BP diastolic 66–95; PULSE 51–70; RESP 16–20; TEMP 36.6–36.7; O2SAT 91–100; BMI 18.9
[2025-01-13] MEDS: oxyCODONE 5 MG Tablet 10 MG PO ×3 (00:45→13:38)
[2025-01-13] MEDS: Levothyroxine 50 MCG Tablet PO (05:53)
[2025-01-13] MEDS: Baclofen 10 MG Tablet 20 MG PO ×2 (05:53→12:54)
[2025-01-13] MEDS: Gabapentin 800 MG Tablet PO ×2 (05:53→12:54)
[2025-01-13] MEDS: Ipratropium/Albuterol Sulfate 3 ML AMPUL.NEB INHALATION (07:01)
[2025-01-13] MEDS: guaiFENesin 1,200 MG Tablet 1200 MG PO (09:08)
[2025-01-13] MEDS: APIXABAN 5 MG TABLET PO (09:08)
[2025-01-13] MEDS: Lisinopril 10 MG Tablet PO (09:16)
[2025-01-13] MEDS: Ipratropium Bromide 0.06% NASAL SPRAY 2 SPRAY NASAL (12:54)
--- NOTE | 2025-01-13 13:40 | CASEMGMT ---
EVERT CHAVARRIA Face to Face with patient for initial transition planning/care coordination assessment. EVERT CHAVARRIA introduced self and role at [facility]. Patient sitting in edge of bed, alert and oriented. Patient willing to participate in assessment and is able to answer all questions appropriately. Care providers, pharmacy, and demographics verified. Strata: 4 PCP: [facility] Specialists: Nidia, meter mechanic; Herbert RUBBER CUTTER, pulmonology; Byod, Vascular; Etelvina, neurologist; Preferred Pharmacy: [facility] Insurance: [employer] Prescription Benefit: yes Living Will/HPOA: none LNOK: sons Living Arrangements: Patient lives alone in a first floor apartment with no steps to enter. Patient is independent at home. Transportation: son DME/HHC: Patient has shower chair, rasied toilet, grab bars, rollator, and home oxygen through [employer] at 2lpm cont. Patient has had [facility] HHC in the past. No previous SNF. Patient has Passport services with [facility]. Patient has aides services 4hrs every Sunday and 2 hours every other Sunday. EVERT CHAVARRIA received call from [facility] and updated regarding admission and planned discharge for today. Patient wishes to discharge home, denies need for home health at this time. Patient states she has no further needs or concerns at this time. CM to follow for discharge planning needs that may arise. Disposition Plan: Patient to discharge home with family support and follow-up plans in place. Tena KELSEY, RN, CM
--- NOTE | 2025-01-13 14:27 | DCINST_ITS ---
Discharge Instructions Diet Discharge Diet: No restrictions DC O2, CPAP, BIPAP needs Home O2 Discharge instructions: Yes Type of respiratory needs?: Oxygen Oxygen frequency: Continuous Continuous oxygen liters per minute: 2 L and With Ambulation Oxygen liters per minute during Ambulation: 2 L Dressing / Incision Discharge Activity: Return to Normal Activity Weight Bearing Status: Full weight bearing Follow Up Care Test Results: Test results from this visit will be discussed in further detail at your follow- up appointment, if applicable. Discharge Plan Admission Admit Date/Time: 01/10/25 23:45 Primary Reason for Your Visit: Demand ischemia, hypertensive emergency Attending Provider: Dex Worrell Primary Care Provider: Daron Benton Consulting Providers: Carlos A Parikh; Sommer Resendiz; Neha Watson Instructions Additional Instructions / Restrictions: Reduce your amlodipine to one half of a 5 mg amlodipine daily Discharge Orders/Prescriptions Prescriptions: New carvedilol 3.125 mg Tablet 3.125 mg PO BIDCM Qty: 60 0RF Continued gabapentin 800 mg tablet 800 mg PO TID baclofen 20 mg tablet 20 mg PO Q6H levothyroxine 50 mcg tablet 50 mcg PO DAILY Patient Comments: take 1 tablet by mouth once daily oxycodone 10 mg tablet 10 mg PO Q6H PRN Patient Comments: take 1 tab q6 PRN for pain famotidine 40 mg tablet 40 mg PO QDAY PRN (Reason: indigestion) lisinopril 10 mg tablet 10 mg PO BID ipratropium bromide 42 mcg (0.06 %) spray,non-aerosol 2 spray intranasal TID Qty: 15 0RF Rx Instructions: administer into each nostril cholecalciferol (vitamin D3) 5,000 UNIT tablet 5,000 unit PO DAILY Patient Comments: supplement dextromethorphan-guaifenesin [Mucinex DM] 60-1,200 mg tablet extended release 12 hr 1 tab PO Q12H PRN (Reason: cough/congest) aspirin 81 mg Tablet,Delayed Release (Dr/Ec) 81 mg PO BREAKFAST Qty: 30 2RF Eliquis 5 mg tablet 5 mg PO Q12H Changed amlodipine [Norvasc] 5 mg tablet 2.5 mg PO QDAY Qty: 90 3RF Referrals / Follow Up: Daron Benton MD [Primary Care Provider] - In 1 Week Disposition Disposition (needs filled in before D/C Order can be placed): Home, Self Care
--- NOTE | 2025-01-13 14:34 | PCM.DC.SUM ---
Providers Date of Admission: 01/10/25 Date of Discharge: 01/13/25 Primary Care Physician: Dr. Daron Benton MD Consultations 01/11/25 01:50 Consult: Cardiology Routine Consulting Provider: Carlos A Parikh Reason for Consult: HTN emergency/NSTEMI EMERGENT Consult: No MD Notified: Yes Date Notified: 01/10/25 Time Notified: 23:47 Method of Notification: ED Physician Initiated Reason For Visit: HTN EMERGENCY/NSTEMI Diagnosis Discharge Diagnosis (1) Hypertensive emergency: Status: Acute Code(s): I16.1 - Hypertensive emergency (2) Elevated troponin: Status: Acute Code(s): R79.89 - Other specified abnormal findings of blood chemistry (3) PAF (paroxysmal atrial fibrillation): Status: Acute Code(s): I48.0 - Paroxysmal atrial fibrillation Plan 1. Hypertensive emergency #2 demand ischemia secondary to hypertensive emergency #3 coronary artery disease #4 paroxysmal A-fib #5 acute severe protein and caloric malnutrition in the context of acute illness related to inadequate oral intake as evidenced by approximately 6% unintentional weight loss x 1 to 2 months, ongoing poor appetite and an adequate oral intake meeting less than 50% of estimated nutritional needs x 1 month #6 chronic hypoxic respiratory failure secondary to COPD Type II myocardial infarction was ruled out Medications at Discharge Home Medications cholecalciferol (vitamin D3) 125 mcg (5,000 unit) tablet 5,000 unit PO DAILY supplement 12/16/13 gabapentin 800 mg tablet 800 mg PO TID MS 07/16/18 baclofen 20 mg tablet 20 mg PO Q6H MS 08/11/21 levothyroxine 50 mcg tablet 50 mcg PO DAILY thyroid 08/11/21 oxycodone 10 mg tablet 10 mg PO Q6H PRN pain 05/24/23 dextromethorphan-guaifenesin ER 60 mg-1,200 mg tab,extend release,12hr (Mucinex DM) 1 tab PO Q12H PRN cough/congest 02/19/24 famotidine 40 mg tablet 40 mg PO QDAY PRN indigestion 11/24/24 lisinopril 10 mg tablet 10 mg PO BID blood pressure 11/24/24 aspirin 81 mg tablet,delayed release 81 mg PO BREAKFAST heart [employer] #30 tabs 12/11/24 ipratropium bromide 42 mcg (0.06 %) nasal spray 2 spray intranasal TID #15 mL 12/24/24 apixaban 5 mg tablet (Eliquis) 5 mg PO Q12H anticoagulation 01/12/25 amlodipine 5 mg tablet (Norvasc) 2.5 mg (1/2 x 5 mg) PO QDAY #90 tabs 01/13/25 carvedilol 3.125 mg tablet 3.125 mg PO BIDCM #60 tabs 01/13/25 Hospital Course Operations None Procedures 2-D Echocardiogram Summary of Care Provided Minutes Spent on Discharge: 33 Hospital Course: This 69-year-old white female was seen in the emergency room at [facility] with concerns for elevated blood pressure over the last several days at home, she also complained of intermittent nausea and vomiting. Patient admitted to not taking her blood pressure medicines as prescribed, labs revealed a normal CBC, chemistry profile revealed a slightly elevated creatinine and BUN, patient's troponin was 2243 and her beta natruretic peptide was 411. Chest x-ray no acute airspace abnormality, blood pressure was elevated in the emergency room. Patient was admitted to PCU, echocardiogram was obtained which showed a normal EF, cardiology was consulted and felt that the patient should not undergo any cardiac catheterization as should be treated medically. At the time of discharge from the hospital, patient required oxygen at 2 L/min with ambulation and continuously. On 01/13/2025, patient was seen and examined: On examination she appeared in good health and spirits, she does not appear to be in any distress. Vital signs as documented. Skin warm and dry and without overt rashes. Neck without JVD, thyroid appears normal, trachea is midline, neck is supple. Lungs clear, normal air movement was noted. Heart exam notable for regular rhythm, normal sounds and absence of murmurs, rubs or gallops. Abdomen unremarkable and without evidence of organomegaly, masses, or abdominal aortic enlargement, bowel sounds are present in all 4 quadrants, no abdominal tenderness was noted. Extremities nonedematous, no cyanosis was noted, no clubbing was noted. Neuro: Cranial nerves II through XII are grossly intact, no focal motor deficits were noted, sensation to light touch and pinprick is intact, motor exam 5/5 throughout. Psych: Patient is alert and oriented x3, she does not appear anxious or depressed, she does not appear agitated. Patient appears stable for discharge home on 01/13/2025. Medical Records Data Medical Nutrition Assessment Dietitian: Malnutrition Criteria Met Start: 01/11/25 13:35 Freq: Status: Active Protocol: Document 01/11/25 13:35 RMA (Rec: 01/11/25 13:35 RMA [id number]) Nutrition Malnutrition Evidence of Yes Malnutrition Exists Malnutrition (severe Acute Illness/Injury ): Evidenced By Suboptimal Energy Intake (Severe),Weight Loss (Severe), Physical Changes (Moderate) Clinical Problem Acute Disease or Injury Related Malnutrition Etiology Severe protein-calorie malnutrition in the context of acute illness related to inadequate oral intake Signs/Symptoms as evidenced by ~6% unintentional weight loss x 1-2 months, ongoing poor appetite and inadequate oral intake meeting less than 50% estimated nutrition needs x 1 month, moderate muscle wasting and fat depletion noted, visible in the clavicle, orbitals and temporal regions. Status Active Problem Recommendation Dietitian Resume PO with liberalized regular diet after testing Recommendations/ to promote improved PO. Changes Pt will consider ONS to prevent further energy/protein depletion; refusing at this time. May need to consider enteral nutrition support if weight continues to decline and oral intake remains inadequate. Weight / BMI Weight Weight: 51.6 kg Body Mass Index (BMI) 18.9 ABG / Lab / Microbiology Data 01/11/25 05:19 01/11/25 05:19 Microbiology: Microbiology 01/11/25 00:40 Mucosa - Nose Respiratory Panel (PCR) - Final 01/11/25 03:56 Mucosa - Nasopharyngeal Coronavirus COVID-19 PCR - Final D/C Instructions Discharge Diet: No restrictions Weight Bearing Status: Full weight bearing DC O2, CPAP, BIPAP Needs Home O2 Discharge instructions: Yes Type of respiratory needs?: Oxygen Oxygen frequency: Continuous Continuous oxygen liters per minute: 2 L and With Ambulation Oxygen liters per minute during Ambulation: 2 L DC home with Oxygen: Yes Home O2 MD Review: I have reviewed the oxygen testing, and the patient qualifies for home oxygen equipment and portability. The patient is mobile in the home and the community. Meaningful Use Info Meaningful Use Meaningful Use Diagnoses (Choose all that apply): None applicable Ischemic Stroke Statin Dosing Therapy Reference: STATIN DOSE THERAPY REFERENCE: * Patients > 75 years receive moderate or high dose statin therapy. * Patients 75 years or YOUNGER should receive HIGH intensity statin dose unless contraindicated. You will be required to document reason for non-treatment if statin daily dose does not meet guidelines. HIGH DOSE STATIN THERAPY DAILY Atorvastatin > than or = to 40 mg Rosuvastatin > than or = to 20 mg Amlodipine + Atorvastatin > than or = to 2.5/40 mg Ezetimibe + Simvastatin 10/80 mg Simvastatin 80mg Discharge Plan Admission Admit Date/Time: 01/10/25 23:45 Primary Reason for Your Visit: Demand ischemia, hypertensive emergency Attending Provider: Dex Worrell Primary Care Provider: Daron Benton Consulting Providers: Carlos A Parikh; Sommer Resendiz; Neha Watson Instructions Additional Instructions / Restrictions: Reduce your amlodipine to one half of a 5 mg amlodipine daily Discharge Orders/Prescriptions Prescriptions: New carvedilol 3.125 mg Tablet 3.125 mg PO BIDCM Qty: 60 0RF Continued gabapentin 800 mg tablet 800 mg PO TID baclofen 20 mg tablet 20 mg PO Q6H levothyroxine 50 mcg tablet 50 mcg PO DAILY Patient Comments: take 1 tablet by mouth once daily oxycodone 10 mg tablet 10 mg PO Q6H PRN Patient Comments: take 1 tab q6 PRN for pain famotidine 40 mg tablet 40 mg PO QDAY PRN (Reason: indigestion) lisinopril 10 mg tablet 10 mg PO BID ipratropium bromide 42 mcg (0.06 %) spray,non-aerosol 2 spray intranasal TID Qty: 15 0RF Rx Instructions: administer into each nostril cholecalciferol (vitamin D3) 5,000 UNIT tablet 5,000 unit PO DAILY Patient Comments: supplement dextromethorphan-guaifenesin [Mucinex DM] 60-1,200 mg tablet extended release 12 hr 1 tab PO Q12H PRN (Reason: cough/congest) aspirin 81 mg Tablet,Delayed Release (Dr/Ec) 81 mg PO BREAKFAST Qty: 30 2RF Eliquis 5 mg tablet 5 mg PO Q12H Changed amlodipine [Norvasc] 5 mg tablet 2.5 mg PO QDAY Qty: 90 3RF Referrals / Follow Up: Daron Benton MD [Primary Care Provider] - 01/15/25 10:20 am Disposition Disposition (needs filled in before D/C Order can be placed): Home, Self Care Charges/Coding Visit Charges Inpatient E&M: 17718 Disch Hosp >30min
[2025-01-13] MEDS: Albuterol 2.5 MG/3 ML VIAL.NEB. INHALATION (16:02)
--- NOTE | 2025-01-13 16:34 | PHA.DC_ITS ---
Pharmacy [facility] has performed discharge medication reconciliation and counseling for this patient. 1. CARVEDILOL 3.125MG PO BID 2. AMLODIPINE DECREASED TO 2.5MG The patient's discharge medication list was reviewed for discrepancies and discrepancies were resolved. The patient was counseled on the following discharge medications and changes in medications for homegoing were reviewed. The Reason for Use, instructions for use, and potential side effects were reviewed for all new medications. The patient's questions regarding all of their medications were answered. The patient was able to verbally demonstrate an understanding of their discharge medications. Medications at Discharge Home Medications cholecalciferol (vitamin D3) 125 mcg (5,000 unit) tablet 5,000 unit PO DAILY supplement 12/16/13 gabapentin 800 mg tablet 800 mg PO TID MS 07/16/18 baclofen 20 mg tablet 20 mg PO Q6H MS 08/11/21 levothyroxine 50 mcg tablet 50 mcg PO DAILY thyroid 08/11/21 oxycodone 10 mg tablet 10 mg PO Q6H PRN pain 05/24/23 dextromethorphan-guaifenesin ER 60 mg-1,200 mg tab,extend release,12hr (Mucinex DM) 1 tab PO Q12H PRN cough/congest 02/19/24 famotidine 40 mg tablet 40 mg PO QDAY PRN indigestion 11/24/24 lisinopril 10 mg tablet 10 mg PO BID blood pressure 11/24/24 aspirin 81 mg tablet,delayed release 81 mg PO BREAKFAST heart health #30 tabs 12/11/24 ipratropium bromide 42 mcg (0.06 %) nasal spray 2 spray intranasal TID #15 mL 12/24/24 apixaban 5 mg tablet (Eliquis) 5 mg PO Q12H anticoagulation 01/12/25 amlodipine 5 mg tablet (Norvasc) 2.5 mg (1/2 x 5 mg) PO QDAY #90 tabs 01/13/25 carvedilol 3.125 mg tablet 3.125 mg PO BIDCM #60 tabs 01/13/25
--- NOTE | 2025-01-13 17:15 | CASEMGMT ---
Social Work Patient has a Direction Home Certified Medical Aide, Tena Santoro. Request for discharge instructions made to send to [phone]. Faxed discharge instructions for continuity of care. No other services requested. -HARMEET Veloz
== END 2025-01-13 16:18 | disposition home or self-care (01) | DRG 304 ==
LOC: ED 22:01 → PCU 23:57
PROVIDERS: Student in an Organized Health Care Education/Training Program; Admitting Provider Family Medicine; Emergency Provider Emergency Medicine; PCP Family Medicine; Referring Provider Emergency Medicine; Visit Provider Internal Medicine
DX: I16.1 Hypertensive emergency (principal); E43 Unspecified severe protein-calorie malnutrition; I24.89 Other forms of acute ischemic heart disease; J96.11 Chronic respiratory failure with hypoxia; Z68.1 Body mass index [BMI] 19.9 or less, adult; Z99.81 Dependence on supplemental oxygen; I48.0 Paroxysmal atrial fibrillation; G35 Multiple sclerosis; J43.2 Centrilobular emphysema; N18.30 Chronic kidney disease, stage 3 unspecified; E66.01 Morbid (severe) obesity due to excess calories; I12.9 Hypertensive chronic kidney disease with stage 1 through stage 4 chronic kidney disease, or unspecified chronic kidney disease; E89.0 Postprocedural hypothyroidism; F32.A Depression, unspecified; E78.5 Hyperlipidemia, unspecified; F17.210 Nicotine dependence, cigarettes, uncomplicated; K21.9 Gastro-esophageal reflux disease without esophagitis; I25.10 Atherosclerotic heart disease of native coronary artery without angina pectoris; F41.9 Anxiety disorder, unspecified; Z95.5 Presence of coronary angioplasty implant and graft; Z79.82 Long term (current) use of aspirin; Z79.890 Hormone replacement therapy; Z79.899 Other long term (current) drug therapy; Z86.73 Personal history of transient ischemic attack (TIA), and cerebral infarction without residual deficits; Z86.79 Personal history of other diseases of the circulatory system
CPT/HCPCS: 36415; 70450; 71045; 80048; 80053; 83735; 83880; 84484; 85025; 85610; 85730; 87633; 87635; 93005; 93306; 94640; 94668; 97116; 97162; 97166; 97530; 97802; 99285; 99406; A4216; J2405

== ENCOUNTER → 2025-01-15 | Outpatient (CLI) | payer MEDICARE, MEDICAID, SELFPAY ==
--- NOTE | 2025-01-15 11:09 | RAD_ITS ---
PROCEDURE: THORACIC SPINE 2 VIEWS REASON FOR EXAM: Back pain. No known injury. TECHNIQUE: AP and lateral views were obtained. COMPARISON: None. FINDINGS: Normal vertebral heights. No evidence of fracture. Mild multilevel disc space narrowing. Normal alignment. No spondylolisthesis. Demineralization of the thoracic vertebrae. Dextroscoliosis. RAD/Thoracic Spine 2 Views IMPRESSION: Dextroscoliosis. Multilevel disc space narrowing. Reading Location: [id number]
== END | disposition home or self-care (01) ==
LOC: MTRAD 11:08
PROVIDERS: PCP Family Medicine; Referring Provider Family Medicine; Visit Provider Family Medicine
DX: M54.6 Pain in thoracic spine (principal); G89.29 Other chronic pain
CPT/HCPCS: 72070

== ENCOUNTER → 2025-03-19 | Outpatient (CLI) | payer MEDICARE, MEDICAID, SELFPAY ==
--- NOTE | 2025-03-19 08:03 | ECHOTEE_ITS ---
Reason For Study Reason For Study: Mitral Stenosis Medication GREGORIO probe 6VT-D (SN [id number]) passed with minimal difficulty. No complications were noted. Cetacaine Topical [place] given X3 orally. Versed 1 mg given slow IVP. Fentanyl 50 mcg given slow IVP. Performed a rapid injection of agitated mix of 9 cc saline and 1cc air to assess for atrial septal defect. Left Ventricle Normal LV size. The left ventricular ejection fraction is 65 %. No regional wall motion abnormalities noted. Right Ventricle Normal RV size. Normal systolic function. Atria Bubble contrast study is negative for PFO/ASD. Normal left atrium. No thrombus is detected in the left atrial appendage. Normal right atrium. Mitral Valve Anterior leaflet diffuse mitral valve thickening. Mitral valve doming/Hockey Sticking. Peak transmitral valve gradient 18 mmHg. Mean transmitral valve gradient 9 mmHg. Moderate mitral valve stenosis. Moderate (2+) eccentric mitral valve insufficiency. Tricuspid Valve Normal tricuspid valve. Aortic Valve Trisinus/trileaflet aortic valve. Pulmonic Valve Normal pulmonic valve. Vessels Normal aortic root. Pericardium No pericardial effusion. Doppler Measurements & Calculations MV V2 max: 213.0 cm/sec MV P1/2t max kennedi: 209.9 cm/sec MV max P.1 mmHg MV P1/2t: 89.4 msec MV V2 mean: 148.1 cm/sec MV mean P.5 mmHg MV dec slope: 687.7 cm/sec2 MV V2 VTI: 61.2 cm MVA(P1/2t): 2.5 cm2 ECHO/Echo Transesophageal (GREGORIO) Interpretation Summary Normal LV size. The left ventricular ejection fraction is 65 %. Bubble contrast study is negative for PFO/ASD. No regional wall motion abnormalities noted. Mean transmitral valve gradient 9 mmHg. Anterior leaflet diffuse mitral valve thickening. Moderate (2+) eccentric mitral valve insufficiency. Moderate mitral valve stenosis. Ordering Physician: Orlando Jacob Referring Physician: Betsey Lindquist Performed By: Eleazar Dorsey, CATHY
== END | disposition home or self-care (01) ==
LOC: CVS 08:01
PROVIDERS: PCP Family Medicine; Referring Provider Physician Assistant Medical; Visit Provider Internal Medicine Cardiovascular Disease
DX: I05.0 Rheumatic mitral stenosis (principal)
CPT/HCPCS: 93312; 93320; 93325; A4216

== ENCOUNTER 2025-04-02 19:09 | Emergency (ER) | payer MEDICARE, MEDICAID, SELFPAY ==
[2025-04-02 19:12] VITALS: BP 150/53; PULSE 71; RESP 12; TEMP 36.6; O2SAT 99
[2025-04-02 19:21] VITALS: BP 140/60; PULSE 60; RESP 18; TEMP 36.4; O2SAT 99; BMI 18.8
--- NOTE | 2025-04-02 19:30 | EKG12_ITS ---
Test Reason : Blood Pressure : */* mmHG Vent. Rate : 64 BPM Atrial Rate : 64 BPM P-R Int : 156 ms QRS Dur : 90 ms QT Int : 446 ms P-R-T Axes : 56 13 59 degrees QTcB Int : 460 ms Normal sinus rhythm Normal ECG Confirmed by OTILIA FOX, MAYI ([id number]), business editor ADI CORDERO ([id number]) on 04/06/2025 8:43:26 AM Referred By: Nuno Grider Confirmed By: MAYI BINGHAM MD
--- NOTE | 2025-04-02 19:30 | CT_ITS ---
PROCEDURE: ABDOMEN/PELVIS W IV CONT ONLY 04/02/2025 REASON FOR EXAM: ABDOMINAL PAIN, NAUSEA AND VOMITING TECHNIQUE: Abdomen and pelvis CT with intravenous contrast. Coronal and Sagittal reconstruction series were provided. PATIENT PREPARATION: Per protocol ORAL CONTRAST TYPE: None. AMOUNT: mL CONTRAST: Omnipaque 350 VOLUME: 100 mL Not Provided Gauge IV One or more dose reduction techniques were used (e.g., Automated exposure control, adjustment of the mA and/or kV according to patient size, use of iterative reconstruction technique. COMPARISON: None FINDINGS: Lung bases: Mild dependent atelectasis Liver: Homogeneous attenuation. No focal lesion. Gallbladder: No ductal dilation. Cholecystectomy. Spleen: Normal size. Pancreas: Normal size without evidence of mass surrounding inflammation or ductal dilation. Adrenals: Unremarkable Kidneys: Right renal atrophy. No suspicious mass or abnormal enhancement. No calculi or hydronephrosis. Bladder: Unremarkable. Reproductive Organs: No pelvic mass. Bowel: Small hiatal hernia. Stomach is unremarkable. No bowel dilation or significant wall thickening. Large colonic stool with fecal impaction. Appendix: The appendix is not identified. There is no inflammatory process identified in the right lower quadrant to suggest appendicitis. Lymph nodes: Unremarkable. Vasculature: Severe diffuse atherosclerotic calcifications are noted. Peritoneum / Retroperitoneum: No ascites. No pneumoperitoneum. Bones: Degenerative changes of the spine. Soft tissue: Catheter traversing the left anterior abdominal wall and terminating within the thecal sac. CT/Abdomen/Pelvis W IV Cont ONLY IMPRESSION: No acute findings in the abdomen and pelvis. Large colonic stool. Reading Location: [facility]
[2025-04-02 19:31] VITALS: BP 161/58; PULSE 64; RESP 18; TEMP 36.4; O2SAT 100
--- NOTE | 2025-04-02 19:31 | EX.ED.DYSGE1 ---
HPI History of Present Illness Chief Complaint: General Illness Narrative Narrative: 69-year-old female past medical history of multiple sclerosis, lives alone, presents with nausea and vomiting as well as generalized weakness consistent with her previous MS flares. She denies any fevers or chills. Today she developed abdominal pain as well as nausea and vomiting which is consistent with her MS flares. She states that her primary care provider, Dr. Daron Benton, put her on oral prednisone for an MS flare that she was experiencing approximately 2 weeks ago. She finished her steroids about a week ago and now over the last few days has felt generalized weakness as well as the nausea and vomiting and abdominal pain. She states she usually gets Solu-Medrol although she lists corticosteroids as an allergy with upset stomach. She denies any exacerbating or alleviating factors. [facility] Medical History Hypertensive emergency NSTEMI, initial episode of care Emphysema of lung Smoking greater than 30 pack years New onset atrial fibrillation [place] (dyspnea on exertion) Atherosclerotic heart disease of [place] coronary artery without angina pectoris Cardiac murmur Elevated troponin Mitral stenosis Chronic low back pain Diastolic hypertension Chest pain Nicotine dependence, cigarettes, uncomplicated Elevated troponin Depression On home oxygen therapy Atrial fibrillation PAF (paroxysmal atrial fibrillation) Atrial fibrillation Hypothyroidism Smoker Coronary artery disease TIA (transient ischemic attack) Influenza A Nonsustained paroxysmal supraventricular tachycardia Multiple sclerosis Nonobstructive atherosclerosis of coronary artery Peripheral vascular occlusive disease Essential (primary) hypertension Bilateral carotid artery stenosis History of transient ischemic attack (TIA) Fatty liver Thrombocytopenia GERD (gastroesophageal reflux disease) Psoriatic arthritis Psoriasis Osteoporosis Osteoarthritis Goiter Multiple sclerosis HLD (hyperlipidemia) Angina pectoris Chronic pain syndrome Home Medications ?Medication ?Instructions ?Recorded ?Last Taken ?Type cholecalciferol (vitamin D3) 125 5,000 unit PO DAILY supplement 12/16/13 03/19/25 History mcg (5,000 unit) tablet gabapentin 800 mg tablet 800 mg PO TID MS 07/16/18 03/19/25 History baclofen 20 mg tablet 20 mg PO Q6H MS 08/11/21 03/19/25 History levothyroxine 50 mcg tablet 50 mcg PO DAILY thyroid 08/11/21 03/19/25 History oxycodone 10 mg tablet 10 mg PO Q6H PRN pain 05/24/23 12/01/23 History dextromethorphan-guaifenesin ER 60 1 tab PO Q12H PRN cough/congest 02/19/24 03/19/25 History mg-1,200 mg tab,extend release,12hr (Mucinex DM) famotidine 40 mg tablet 40 mg PO QDAY PRN indigestion 11/24/24 03/19/25 History lisinopril 10 mg tablet 10 mg PO BID blood pressure 11/24/24 03/19/25 History aspirin 81 mg tablet,delayed 81 mg PO BREAKFAST heart health 12/11/24 03/19/25 Rx release #30 tabs ipratropium bromide 42 mcg (0.06 2 spray intranasal TID #15 mL 12/24/24 03/19/25 Rx %) nasal spray amlodipine 5 mg tablet (Norvasc) 2.5 mg (1/2 x 5 mg) PO QDAY #90 01/13/25 03/19/25 Rx tabs carvedilol 3.125 mg tablet 3.125 mg PO BIDCM #180 tabs 03/03/25 03/19/25 Rx apixaban 5 mg tablet (Eliquis) 5 mg PO Q12H anticoagulation #180 03/09/25 03/19/25 Rx tabs Allergy/AdvReac Type Severity Reaction Status Date / Time colestipol (From Colestid) Allergy Mild unknown Verified 04/02/25 19:26 pregabalin (From Lyrica) Allergy Mild Hives Verified 04/02/25 19:26 amitriptyline Allergy Rash Verified 04/02/25 19:26 temazepam (From Restoril) AdvReac Mild Nausea/Vom/ Verified 04/02/25 19:26 Diarrhea Antihistamines - Alkylamine AdvReac Nausea/Vom/ Verified 04/02/25 19:26 Diarrhea Antihistamines - Ethanolamine AdvReac Nausea/Vom/ Verified 04/02/25 19:26 Diarrhea Antihistamines - AdvReac Nausea/Vom/ Verified 04/02/25 19:26 Ethylenediamine Diarrhea Antihistamines - Piperazine AdvReac Nausea/Vom/ Verified 04/02/25 19:26 Diarrhea Antihistamines - Piperidine AdvReac Nausea/Vom/ Verified 04/02/25 19:26 Diarrhea aspirin AdvReac I'M ON Verified 04/02/25 19:26 BLOOD THINNERS codeine AdvReac Nausea Verified 04/02/25 19:26 Corticosteroids AdvReac Upset Verified 04/02/25 19:26 (Glucocorticoids) Stomach morphine AdvReac Nausea Verified 04/02/25 19:26 Wmyysqm-DYN-UfL Reductase AdvReac Nausea Verified 04/02/25 19:26 Inhibitor (Bxcjawm-Aty-Vtv Reductase Inhibitor) Family History Mother Cancer CAD (coronary artery disease) Brain tumor Grandfather CVA (cerebral vascular accident) Father CAD (coronary artery disease) Ruptured abdominal aortic aneurysm (AAA) Sister Brain aneurysm Surgical History History of coronary artery stent placement History of appendectomy History of cholecystectomy History of angioplasty of peripheral vessel (07/11/19) Stenosis of left subclavian artery History of left heart catheterization (01/25/15) S/P coil embolization of cerebral aneurysm History of angioplasty of peripheral vessel History of right-sided carotid endarterectomy History of left-sided carotid endarterectomy History of partial thyroidectomy (11/30/05) History of hemorrhoidectomy History of hysterectomy History of section Brain aneurysm Fracture of right lower leg S/P insertion of iliac artery stent History of left breast biopsy H/O hemorrhoidectomy S/P hysterectomy H/O: S/P thyroidectomy Social History household members: none housing: apartment Smoking Status: Light Smoker (<10/day) alcohol intake: never caffeine: Yes Type: coffee and tea ROS ROS ED ROS Narrative Review of systems positive for generalized weakness and difficulty ambulating. Positive nausea and vomiting. Positive diffuse abdominal pain. No fevers or chills. No chest pain or shortness of breath. EXAM Physical Exam Narrative Exam Narrative: Afebrile. Vital signs noted. Nontoxic-appearing. Cardiovascular examination reveals a regular rate and rhythm. Lungs are clear to auscultation bilaterally. Abdomen is soft, nontender, with positive bowel sounds. No guarding or rebound. Neurological examination is nonfocal, nonlateralizing. Mildly flat affect. Moves all extremities. Const Vital Signs: 04/02/25 19:12 04/02/25 19:21 04/02/25 19:31 Temperature 97.8 F 97.6 F L 97.6 F L Temperature Source Oral Oral Oral Pulse Rate 71 60 64 Respiratory Rate 12 18 18 Blood Pressure 150/53 H 140/60 H 161/58 H Blood Pressure Mean 85 86 92 Pulse Ox 99 99 100 Oxygen Delivery Method Room Air Room Air Room Air 04/02/25 20:25 04/02/25 21:25 04/02/25 22:25 Temperature 97.9 F 97.8 F 98.1 F Temperature Source Oral Oral Oral Pulse Rate 60 67 73 Respiratory Rate 18 18 18 Blood Pressure 136/88 H 139/63 H 105/79 Blood Pressure Mean 104 88 87 Pulse Ox 100 100 100 Oxygen Delivery Method Room Air Room Air Room Air MDM MDM MDM Narrative Medical decision making narrative: Differential diagnosis includes but not limited to MS flare versus generalized weakness from infectious cause including UTI versus dehydration versus other electrolyte abnormality. I have low suspicion for pneumonia because she has no cough or shortness of breath. Comprehensive workup was pursued. I did review her prior ED visits. She is coming with various complaints recently including chest pain, but at one time in 2021, she was having an MS flare and she was given steroids, and wanted to go home. Currently she is agreeable to at least observation as she lives alone. Workup was pursued to look for infectious cause of her generalized weakness. She was given 60 mg of Solu-Medrol intravenously. Given her abdominal pain, nausea and vomiting, pancreatitis is also in the differential diagnosis as well as small bowel obstruction. I do feel CT imaging is indicated as well as lipase. I obtained an EKG and interpreted independently as normal sinus rhythm at 64 bpm without ectopy or acute ST changes. No STEMI. I do not feel that she needs cardiac enzymes as she is not having chest pain. I reviewed her laboratory work and she has a WBC count of 5.9, hemoglobin 8.8, when compared to prior labs while she has had anemia before, this is a drop when compared to labs performed in December, approximately 3 months ago. Platelet count normal at 154. Electrolyte panel significant for BUN of 27 and creatinine 1.23, glucose appropriately elevated at 129 with a normal anion gap of 13. LFTs unremarkable. Lipase normal at 23 so I doubt pancreatitis as a cause of her nausea and vomiting. She does state that the nausea and vomiting and abdominal pain is sometimes exacerbation of her multiple sclerosis. Urology report of the CT of the abdomen and pelvis and it shows no acute process but a large colonic stool burden. At this point in time, her urinalysis is still pending but I will discuss patient with Dr. Terry because I feel that she requires observation as she lives at home alone. However, I was informed by the RN that the patient wanted her IV removed and would like to go home. She states that her son is coming to get her and will stay with her overnight. She feels that this is her MS flare, and she would like to go home and follow-up with her neurologist. She may require IV steroids for a few days which she states is usually taking care of by him. Once again, I discussed with her [id number] if she would like to be observed, but she declined stating that her son is coming to get her and will stay with her overnight. I find this acceptable as I reviewed her prior charts and she has done this in the past where she does not want to be observed or admitted to the hospital. Additionally, she does not want to wait for the urinalysis and feels that her urine is not infected. This is because she is not having dysuria or hematuria. As long as she has someone with her, I feel she can be discharged to follow-up. Return instructions were reviewed. Disposition is discharged home in stable condition. History & Record Review Discussion w/independent historian: Patient Additional record(s) reviewed:: Prior ED visit Lab Data Attestation: I reviewed the patient's lab results. Labs: Laboratory Results - last 24 hr 04/02/25 19:50 WBC 5.9 RBC 3.41 L Hgb 8.8 L Hct 28.2 L MCV 82.7 MCH 25.8 L MCHC 31.2 L RDW Std Deviation 49.7 H RDW Coeff of David 16.5 H Plt Count 154 MPV 9.7 Immature Gran % (Auto) 0.500 Neut % (Auto) 80.4 H Lymph % (Auto) 10.5 L Candler % (Auto) 6.6 Eos % (Auto) 1.5 Baso % (Auto) 0.5 Absolute Neuts (auto) 4.7 Absolute Lymphs (auto) 0.62 L Nucleated RBC % 0 Sodium 138 Potassium 4.0 Chloride 102 Carbon Dioxide 23.7 Anion Gap 13 BUN 27 H Creatinine 1.23 H Estim Creat Clear Calc 34.53 L Est GFR (MDRD) Non-Af 47 L BUN/Creatinine Ratio 22.3 H Glucose 129 H Calcium 9.6 Total Bilirubin 0.22 AST 16 ALT 14 Alkaline Phosphatase 87 Total Protein 6.7 Albumin 4.2 Globulin 2.5 Albumin/Globulin Ratio 1.7 Lipase 23 Radiography Diagnostic Testing: Clinical Impression(s) from Imaging Studies Abdomen/Pelvis CT 04/02/25 19:30 IMPRESSION: No acute findings in the abdomen and pelvis. Large colonic stool. Reading Location: [facility] Management Discussion w/another healthcare provider: Hospitalist (Dr. Terry) Discharge Plan Triage Chief Complaint: General Illness ED Provider: Nuno Grider Dx/Rx/DC Orders Clinical Impression: Multiple sclerosis, Anemia, Abdominal pain, Nausea and vomiting, Generalized weakness Instructions: Multiple Sclerosis Dc, ED Abdominal Pain Unkn Cause Fem, ED Vomiting (Adult), ED Weakness Uncertain Cause Prescriptions: No Action gabapentin 800 mg tablet 800 mg PO TID baclofen 20 mg tablet 20 mg PO Q6H levothyroxine 50 mcg tablet 50 mcg PO DAILY Patient Comments: take 1 tablet by mouth once daily oxycodone 10 mg tablet 10 mg PO Q6H PRN Patient Comments: take 1 tab q6 PRN for pain famotidine 40 mg tablet 40 mg PO QDAY PRN (Reason: indigestion) lisinopril 10 mg tablet 10 mg PO BID ipratropium bromide 42 mcg (0.06 %) spray,non-aerosol 2 spray intranasal TID Qty: 15 0RF Rx Instructions: administer into each nostril cholecalciferol (vitamin D3) 5,000 UNIT tablet 5,000 unit PO DAILY Patient Comments: supplement dextromethorphan-guaifenesin [Mucinex DM] 60-1,200 mg tablet extended release 12 hr 1 tab PO Q12H PRN (Reason: cough/congest) aspirin 81 mg Tablet,Delayed Release (Dr/Ec) 81 mg PO BREAKFAST Qty: 30 2RF amlodipine [Norvasc] 5 mg tablet 2.5 mg PO QDAY Qty: 90 3RF carvedilol 3.125 mg tablet 3.125 mg PO BIDCM Qty: 180 3RF Eliquis 5 mg tablet 5 mg PO Q12H Qty: 180 3RF Primary Care Provider: Daron Benton Referrals: Daron Benton MD [Primary Care Provider] - 1-2 Days if not improving Activity Restrictions/Additional Instructions: Follow-up with your neurologist within the next 1 to 2 days. Return with increased weakness, fever, new or worsening symptoms. Print Language: Indonesian Disposition Disposition: Home, Self Care
[2025-04-02] MEDS: MethylPREDNISolone 125 MG/2 ML Vial 60 MG IV (19:50)
[2025-04-02] MEDS: 0.9% Normal Saline (500mL Bag) 500 ML 1000 ML IV (19:50)
[2025-04-02 20:01] LABS: Absolute Lymphocyte Count 0.62 X10^3/uL (0.83-4.51); Absolute Neutrophil Count 4.7 X10^3/uL (2.0-7.7); Basophil# 0.03 X10^3/uL; Basophil% 0.5 % (0-1); Eosinophil# 0.09 X10^3/uL; Eosinophils% 1.5 % (0-5); Hematocrit 28.2 % (37-47); Hemoglobin 8.8 g/dL (12.0-15.0); Lymphocyte # 0.62 X10^3/ul (0.83-4.51); Lymphocyte % 10.5 % (19-41); Mean Corp Hgb Conc 31.2 g/dL (32-36); Mean Corpuscular Hgb 25.8 pg (27.0-32.0); Mean Corpuscular Volume 82.7 fL (81-99); Mean Platelet Vol. 9.7 fl (6.2-12.0); Monocyte# 0.39 X10^3/uL; Monocyte% 6.6 % (0-10); NRBC Flagged by Analyzer 0 % (0-5); Neutrophil # 4.72 X10^3/uL (2.7-7.7); Neutrophil % 80.4 % (47-70); Platelet Count 154 K/mm3 (150-450); RBC Distribution Width CV 16.5 % (11.6-14.6); RBC Distribution Width SD 49.7 fl (35.1-43.9); Red Blood Count 3.41 M/mm3 (4.2-5.4); White Blood Count 5.9 K/mm3 (4.4-11.0)
[2025-04-02 20:25] VITALS: BP 136/88; PULSE 60; RESP 18; TEMP 36.6; O2SAT 100
[2025-04-02 21:18] LABS: ALB/GLOB Ratio 1.7 RATIO (0.9-2.4); AST(SGOT) 16 U/L (<=31); Alanine Aminotransfer ALT/SGPT 14 U/L (<=34); Albumin, Serum 4.2 g/dL (3.4-4.8); Alkaline Phosphatase 87 U/L (35-104); Anion Gap 13 (5-15); BUN 27 mg/dL (4-19); BUN/Creat Ratio 22.3 RATIO (10-20); Calcium,Total 9.6 mg/dL (7.6-11.0); Carbon Dioxide 23.7 mmol/L (21.0-32.0); Chloride 102 mmol/L (98-108); Creatinine, Serum 1.23 mg/dL (0.70-1.20); EST Glomerular Filtration Rate 47 (>60); Estimated Creatinine Clearance 34.53 ml/min (50-250); Globulin 2.5 g/dL (2.2-4.2); Glucose 129 mg/dL (70-99); Lipase 23 U/L (13-75); Protein, Total 6.7 g/dL (5.9-8.4); Sodium Level 138 mmol/L (133-145); Total Bilirubin 0.22 mg/dL (0.00-1.30)
[2025-04-02 21:25] VITALS: BP 139/63; PULSE 67; RESP 18; TEMP 36.6; O2SAT 100
[2025-04-02 22:25] VITALS: BP 105/79; PULSE 73; RESP 18; TEMP 36.7; O2SAT 100
== END 2025-04-02 23:59 | disposition home or self-care (01) ==
PROVIDERS: Emergency Provider Emergency Medicine; PCP Family Medicine; Referring Provider Emergency Medicine; Visit Provider Emergency Medicine
DX: R11.2 Nausea with vomiting, unspecified (principal); G35 Multiple sclerosis; I48.0 Paroxysmal atrial fibrillation; I10 Essential (primary) hypertension; D64.9 Anemia, unspecified; F17.200 Nicotine dependence, unspecified, uncomplicated; R53.1 Weakness; E78.5 Hyperlipidemia, unspecified; R10.9 Unspecified abdominal pain; Z90.710 Acquired absence of both cervix and uterus; I25.10 Atherosclerotic heart disease of native coronary artery without angina pectoris; Z86.73 Personal history of transient ischemic attack (TIA), and cerebral infarction without residual deficits; E03.9 Hypothyroidism, unspecified; Z79.890 Hormone replacement therapy; Z79.899 Other long term (current) drug therapy; Z79.82 Long term (current) use of aspirin; Z79.01 Long term (current) use of anticoagulants; Z95.5 Presence of coronary angioplasty implant and graft; Z90.49 Acquired absence of other specified parts of digestive tract
CPT/HCPCS: 74177; 80053; 83690; 85025; 93005; 96360; 96361; 99285; Q9967; A4216

== ENCOUNTER 2025-04-11 13:16 | Emergency (ER) | payer MEDICARE, MEDICAID, SELFPAY ==
[2025-04-11 13:17] VITALS: BP 141/61; PULSE 64; RESP 16; TEMP 36.6; O2SAT 98; BMI 19.1
[2025-04-11 13:19] VITALS: O2SAT 98
--- NOTE | 2025-04-11 14:40 | ED.VIS.FALL ---
HPI HPI - Fall History of Present Illness Chief Complaint: Fall Informant: patient Occured/Mechanism Occurred: Today Pain/Injury Pain Location: head, face and neck Quality of Pain: Dull and Aching Current Severity: Mild Maximum Severity: Mild Associated Symptoms Associated Symptoms: Negative for Parasthesias, Weakness, Loss of function, Inability to ambulate, Loss of consciousness or Amnesia Narrative Narrative: 69-year-old female sitting on the toilet only she went to get up she slipped fell hit her right side of her neck on the toilet and her right face. She is on a blood thinner Eliquis. She denies LOC. She is primarily complaining of right lateral neck pain and some mild facial pain. No headache. No vomiting. This occurred about an hour ago. Prior to the fall since she felt fine. Denies recent illness or hospitalization. Prior similar symptoms: No Recent Illness/Hospitalization: No PFSH PFS Medical History Hypertensive emergency NSTEMI, initial episode of care Emphysema of lung Smoking greater than 30 pack years New onset atrial fibrillation [place] (dyspnea on exertion) Atherosclerotic heart disease of [place] coronary artery without angina pectoris Cardiac murmur Elevated troponin Mitral stenosis Chronic low back pain Diastolic hypertension Chest pain Nicotine dependence, cigarettes, uncomplicated Elevated troponin Depression On home oxygen therapy Atrial fibrillation PAF (paroxysmal atrial fibrillation) Atrial fibrillation Hypothyroidism Smoker Coronary artery disease TIA (transient ischemic attack) Influenza A Nonsustained paroxysmal supraventricular tachycardia Multiple sclerosis Nonobstructive atherosclerosis of coronary artery Peripheral vascular occlusive disease Essential (primary) hypertension Bilateral carotid artery stenosis History of transient ischemic attack (TIA) Fatty liver Thrombocytopenia GERD (gastroesophageal reflux disease) Psoriatic arthritis Psoriasis Osteoporosis Osteoarthritis Goiter Multiple sclerosis HLD (hyperlipidemia) Angina pectoris Chronic pain syndrome Home Medications ?Medication ?Instructions ?Recorded ?Last Taken ?Type cholecalciferol (vitamin D3) 125 5,000 unit PO DAILY supplement 12/16/13 03/19/25 History mcg (5,000 unit) tablet gabapentin 800 mg tablet 800 mg PO TID MS 07/16/18 03/19/25 History baclofen 20 mg tablet 20 mg PO Q6H MS 08/11/21 03/19/25 History levothyroxine 50 mcg tablet 50 mcg PO DAILY thyroid 08/11/21 03/19/25 History oxycodone 10 mg tablet 10 mg PO Q6H PRN pain 05/24/23 12/01/23 History dextromethorphan-guaifenesin ER 60 1 tab PO Q12H PRN cough/congest 02/19/24 03/19/25 History mg-1,200 mg tab,extend release,12hr (Mucinex DM) famotidine 40 mg tablet 40 mg PO QDAY PRN indigestion 11/24/24 03/19/25 History lisinopril 10 mg tablet 10 mg PO BID blood pressure 11/24/24 03/19/25 History aspirin 81 mg tablet,delayed 81 mg PO BREAKFAST heart health 12/11/24 03/19/25 Rx release #30 tabs ipratropium bromide 42 mcg (0.06 2 spray intranasal TID #15 mL 12/24/24 03/19/25 Rx %) nasal spray amlodipine 5 mg tablet (Norvasc) 2.5 mg (1/2 x 5 mg) PO QDAY #90 01/13/25 03/19/25 Rx tabs carvedilol 3.125 mg tablet 3.125 mg PO BIDCM #180 tabs 03/03/25 03/19/25 Rx apixaban 5 mg tablet (Eliquis) 5 mg PO Q12H anticoagulation #180 03/09/25 03/19/25 Rx tabs Allergy/AdvReac Type Severity Reaction Status Date / Time colestipol (From Colestid) Allergy Mild unknown Verified 04/11/25 13:19 pregabalin (From Lyrica) Allergy Mild Hives Verified 04/11/25 13:19 amitriptyline Allergy Rash Verified 04/11/25 13:19 temazepam (From Restoril) AdvReac Mild Nausea/Vom/ Verified 04/11/25 13:19 Diarrhea Antihistamines - Alkylamine AdvReac Nausea/Vom/ Verified 04/11/25 13:19 Diarrhea Antihistamines - Ethanolamine AdvReac Nausea/Vom/ Verified 04/11/25 13:19 Diarrhea Antihistamines - AdvReac Nausea/Vom/ Verified 04/11/25 13:19 Ethylenediamine Diarrhea Antihistamines - Piperazine AdvReac Nausea/Vom/ Verified 04/11/25 13:19 Diarrhea Antihistamines - Piperidine AdvReac Nausea/Vom/ Verified 04/11/25 13:19 Diarrhea aspirin AdvReac I'M ON Verified 04/11/25 13:19 BLOOD THINNERS codeine AdvReac Nausea Verified 04/11/25 13:19 Corticosteroids AdvReac Upset Verified 04/11/25 13:19 (Glucocorticoids) Stomach morphine AdvReac Nausea Verified 04/11/25 13:19 [id number]-[id number] Reductase AdvReac Nausea Verified 04/11/25 13:19 Inhibitor (Eomlwfn-Fyd-Twf Reductase Inhibitor) Family History Mother Cancer CAD (coronary artery disease) Brain tumor Grandfather CVA (cerebral vascular accident) Father CAD (coronary artery disease) Ruptured abdominal aortic aneurysm (AAA) Sister Brain aneurysm Surgical History History of coronary artery stent placement History of appendectomy History of cholecystectomy History of angioplasty of peripheral vessel (07/11/19) Stenosis of left subclavian artery History of left heart catheterization (01/25/15) S/P coil embolization of cerebral aneurysm History of angioplasty of peripheral vessel History of right-sided carotid endarterectomy History of left-sided carotid endarterectomy History of partial thyroidectomy (11/30/05) History of hemorrhoidectomy History of hysterectomy History of section Brain aneurysm Fracture of right lower leg S/P insertion of iliac artery stent History of left breast biopsy H/O hemorrhoidectomy S/P hysterectomy H/O: S/P thyroidectomy Social History household members: none housing: apartment Smoking Status: Light Smoker (<10/day) alcohol intake: never caffeine: Yes Type: coffee and tea ROS ROS ED ROS Narrative Denies recent illness. Constitutional Constitutional ED: Denies chills or fever(s) Eyes Eyes: Denies blurry vision ENT ENT ED: Denies ear pain Cardiovascular Cardiovascular: Denies chest pain Respiratory/Chest Respiratory/Chest: Denies cough or dyspnea Gastrointestinal Gastrointestinal: Denies abdominal pain Genitourinary Genitourinary ED: Denies dysuria or hematuria Musculoskeletal Musculoskeletal: Denies arthralgias or back pain Integumentary Denies abscess or Abrasions Neurologic Neurologic: Denies headache(s) Psychiatric Psychiatric: Denies anxiety or depression Endocrine Endocrinology: Denies polydipsia Hematologic/Lymphatic Hematologic/Lymphatic: Denies easy bleeding, easy bruising or lymphadenopathy Allergic/Immunologic Allergic/Immunologic ED: Denies mouth swelling, tongue swelling or urticaria EXAM Physical Exam Narrative Exam Narrative: 69-year-old female sitting upright in bed. Vital signs are stable afebrile. Pulse ox 90% on room air no hypoxia. She does not look septic toxic. No acute distress. H EENT exam pupils round reactive light. She complains of right cheek discomfort but there is no significant swelling. She is upper and lower dentures. Able to open and close her mouth. There is no significant jaw tenderness or swelling. Scalp is nontender no hematoma. No laceration. Her C-spine and trachea are nontender. She has tenderness on the right lateral neck. There is no hematoma or swelling currently. Lungs clear to auscultation bilaterally. Heart rate about 65 no murmur. Chest wall and ribs nontender. Abdomen soft nontender. Pelvic girdle intact. Moving all 4 extremities. Normal speech lang path strength. Normal dorsi plantarflexion. Normal flexion extension of both knees and hips. Nontender no deformity. Back nontender. No bruising. Neurologically she is awake alert. Answering questions and following commands. Const Vital Signs: 04/11/25 13:17 04/11/25 13:19 04/11/25 15:17 Temperature 97.9 F Temperature Source Oral Pulse Rate 64 87 Respiratory Rate 16 Respiratory Effort Normal Non-Labored Respiratory Depth Normal Respiratory Pattern Normal Blood Pressure 141/61 H 128/70 H Blood Pressure Mean 87 89 Pulse Ox 98 98 98 Oxygen Delivery Method Room Air Room Air Positive well nourished and well developed; Negative for obese, cachectic, contractures or unkempt General Appearance ED: well developed and NAD; Negative for unkempt, cachectic or contractures Nutritional Appearance: Negative for cachectic or obese HEENT Reports normocephalic HEENT Narrative: Right facial contusion. Very mild tenderness. trauma, contusion and tenderness; Negative for atraumatic or hematoma Eyes PERRL and EOMs intact bilaterally General Eye ED: Negative for pale conjunctiva or scleral icterus Neck full ROM, no lymphadenopathy and supple Neck Narrative: Right lateral neck soft tissue tenderness. No C-spine tenderness. General: tenderness Chest Wall inspection of chest normal and palpation of chest normal Resp normal respiratory effort, no retractions and clear to auscultation bilaterally Cardio regular rate, regular rhythm, S1 normal heart sound, S2 normal heart sound and no murmurs GI non-tender, non-distended and no masses Auscultation: normoactive bowel sounds Palpation: soft; Negative for guarding or rebound tenderness present Back/Spine no CVA tenderness General Back: Negative for CVA tenderness Cervical Spine: Negative for cervical spine tenderness Lumbar Spine / Lower Back: Negative for lumbar spinal tenderness Neuro oriented x3, CN's II-XII intact bilaterally, moves all extremities, no focal motor deficits and no sensory deficits noted Nelly Coma Scale: document GCS findings Spontaneous Obeys Commands Oriented 15 Sensorium / Orientation: alert, oriented to person, oriented to place and oriented to time; Negative for orientation impaired or confused Motor Exam: strength 5/5 throughout Psych mental status grossly normal and thought process normal Appearance: Negative for unkempt Skin Lesions: no lesions Rashes: no rashes Trauma: Negative for abrasion or laceration MDM MDM MDM Narrative Medical decision making narrative: 69-year-old female fell when she is getting off the toilet injuring her right lateral neck and right face. CT of her brain, facial bones and C-spine will be obtained. Currently she has no hematoma. She is on blood thinners. She will be given Tylenol for pain. She has no other injuries or other complaints at this time. Repeat exam patient is doing well at 4 PM. She is awake alert. She has had no significant swelling or bruising to her face or the right side of her neck. We went over her CAT scans of her brain, neck and facial bones there is no acute abnormality. She clinically feels well. She is awake and alert. She has no new findings. She is moving all 4 extremities. Her chest wall is nontender as is her abdomen. She is comfortable being discharged to home. She has pain medications at home she can use. She was given head injury instructions and when to return or follow-up as needed. Patient is comfortable with the plan. History & Record Review Discussion w/independent historian: Patient Additional record(s) reviewed:: Prior inpatient record, Prior outpatient record, Prior ED visit and Prior labs Radiography Diagnostic Testing: Clinical Impression(s) from Imaging Studies Brain CT 04/11/25 14:57 IMPRESSION: 1. No acute intracranial finding. 2. Chronic findings as described above. Reading Location: [facility] Cervical Spine CT 04/11/25 14:57 IMPRESSION: NO ACUTE CERVICAL FRACTURE. DEGENERATIVE CHANGES. Reading Location: [facility] Facial/Sinus 04/11/25 14:57 IMPRESSION: No CT evidence of acute maxillofacial fracture. Reading Location: [facility] Discharge Plan Triage Chief Complaint: Fall ED Provider: Ramírez Onofre Dx/Rx/DC Orders Clinical Impression: Fall, Closed head injury, Contusion of neck, Contusion of face, Chronic anticoagulation Instructions: ED Facial Contusion, ED Head Injury (Adult) Prescriptions: No Action gabapentin 800 mg tablet 800 mg PO TID baclofen 20 mg tablet 20 mg PO Q6H levothyroxine 50 mcg tablet 50 mcg PO DAILY Patient Comments: take 1 tablet by mouth once daily oxycodone 10 mg tablet 10 mg PO Q6H PRN Patient Comments: take 1 tab q6 PRN for pain famotidine 40 mg tablet 40 mg PO QDAY PRN (Reason: indigestion) lisinopril 10 mg tablet 10 mg PO BID ipratropium bromide 42 mcg (0.06 %) spray,non-aerosol 2 spray intranasal TID Qty: 15 0RF Rx Instructions: administer into each nostril cholecalciferol (vitamin D3) 5,000 UNIT tablet 5,000 unit PO DAILY Patient Comments: supplement dextromethorphan-guaifenesin [Mucinex DM] 60-1,200 mg tablet extended release 12 hr 1 tab PO Q12H PRN (Reason: cough/congest) aspirin 81 mg Tablet,Delayed Release (Dr/Ec) 81 mg PO BREAKFAST Qty: 30 2RF amlodipine [Norvasc] 5 mg tablet 2.5 mg PO QDAY Qty: 90 3RF carvedilol 3.125 mg tablet 3.125 mg PO BIDCM Qty: 180 3RF Eliquis 5 mg tablet 5 mg PO Q12H Qty: 180 3RF Primary Care Provider: Daron Benton Referrals: Daron Benton MD [Primary Care Provider] - As Needed Activity Restrictions/Additional Instructions: Ice all sore areas down. Your face and neck. Your home oxycodone for pain. Follow-up with your doctor as needed. Return if feeling a lot worse. You are going to be sore. Print Language: [place]ian Disposition Disposition: Home, Self Care
[2025-04-11] MEDS: oxyCODONE 5 MG Tablet PO (14:50)
--- NOTE | 2025-04-11 14:57 | CT_ITS ---
EXAM: BRAIN/HEAD WITHOUT CONTRAST CLINICAL HISTORY: 69 y/o F with TRAUMA POST FALL. COMPARISON: None. TECHNIQUE: Routine CT imaging of the head without IV contrast. Additional multiplanar reformats were obtained. Dose reduction techniques were used including intermediate exposure control (AEC),iterative reconstruction technique, and/or mA and/or KV dose adjustments based on patient's size. FINDINGS: Visualization of the brain parenchyma is limited by streak artifact from prior coil embolization in the anterior suprasellar region. Unchanged area of small chronic subcortical infarct within the left parietal lobe. Additional stable small area of subcortical infarct within the right frontoparietal watershed area. Small lacunar type infarct within the left basal nuclei. Mild generalized cerebral volume loss with concordant prominence of the ventricles and subarachnoid spaces. Moderate patchy supratentorial white matter hypodensities. No acute intracranial hemorrhage or herniation. Prior ocular lens replacements. The visualized paranasal sinuses and mastoids are unremarkable. No acute calvarial fracture or scalp hematoma. CT/Brain/Head without Contrast IMPRESSION: 1. No acute intracranial finding. 2. Chronic findings as described above. Reading Location: [id number]
--- NOTE | 2025-04-11 14:57 | CT_ITS ---
EXAM: SINUS/FACIAL BONE CLINICAL HISTORY: FACIAL TRAUMA COMPARISON: None. TECHNIQUE: Helical CT of the facial bones without IV contrast. Reformatted images are included for review. Dose reduction techniques were used including intermediate exposure control (AEC),iterative reconstruction technique, and/or mA and/or KV dose adjustments based on patient's size. FINDINGS: See same day CT head and C-spine for discussion of intracranial and cervical findings. There is no linear lucency, cortical irregularity or bony deformity to suggest acute displaced fracture. The bilateral orbits, nasal bones, temporomandibular joints, pterygoid plates and zygomatic arches are symmetrically intact. Arthrosis of the right TMJ. The mandible is grossly intact. Edentulism. The paranasal sinuses and mastoid air cells are clear. No soft tissue contusion or swelling.. CT/Sinus/Facial Bone IMPRESSION: No CT evidence of acute maxillofacial fracture. Reading Location: [id number]
--- NOTE | 2025-04-11 14:57 | CT_ITS ---
PROCEDURE: SPINE CERVICAL WITHOUT CONTRAS 04/11/2025 REASON FOR EXAM: R-SIDED PAIN POST FALL TECHNIQUE: Cervical spine CT without contrast. Coronal and Sagittal reconstruction series were provided. One or more dose reduction techniques were used (e.g., Automated exposure control, adjustment of the mA and/or kV according to patient size, use of iterative reconstruction technique RADIATION DOSE SUMMARY: CTDlvol: 15 mGy DLP: 312 mGycm COMPARISON: None. FINDINGS: Alignment: There is exaggeration of the normal cervical lordosis. No traumatic listhesis. Vertebrae: Severe diffuse osseous demineralization. No acute vertebral fracture. Multilevel chronic vertebral body height loss and degenerative disc disease. Soft Tissues: No prevertebral or soft tissue hematoma. Other: Carotid artery stenting. Partially visualized severe biapical emphysema with scattered areas of scarring. CT/Spine Cervical without Contras IMPRESSION: NO ACUTE CERVICAL FRACTURE. DEGENERATIVE CHANGES. Reading Location: [id number]
[2025-04-11 15:17] VITALS: BP 128/70; PULSE 87; O2SAT 98
[2025-04-11 16:10] VITALS: BP 124/67; PULSE 56; RESP 18; TEMP 36.4; O2SAT 100
== END 2025-04-11 16:20 | disposition home or self-care (01) ==
PROVIDERS: Emergency Provider Emergency Medicine; PCP Family Medicine; Visit Provider Emergency Medicine
DX: S00.83XA Contusion of other part of head, initial encounter (principal); G35 Multiple sclerosis; I48.0 Paroxysmal atrial fibrillation; S10.93XA Contusion of unspecified part of neck, initial encounter; W18.12XA Fall from or off toilet with subsequent striking against object, initial encounter; I25.10 Atherosclerotic heart disease of native coronary artery without angina pectoris; I25.2 Old myocardial infarction; I10 Essential (primary) hypertension; F17.200 Nicotine dependence, unspecified, uncomplicated; Z95.5 Presence of coronary angioplasty implant and graft; Z79.01 Long term (current) use of anticoagulants; Z79.82 Long term (current) use of aspirin; Z79.899 Other long term (current) drug therapy; Z86.73 Personal history of transient ischemic attack (TIA), and cerebral infarction without residual deficits
CPT/HCPCS: 70450; 70486; 72125; 99285

== ENCOUNTER 2025-04-17 22:16 | Emergency (ER) | payer MEDICARE, MEDICAID, SELFPAY ==
[2025-04-17 22:17] VITALS: BP 149/83; PULSE 89; RESP 16; TEMP 36.5; O2SAT 100; BMI 16.9
--- NOTE | 2025-04-17 22:42 | EDS_ITS ---
HPI History of Present Illness Chief Complaint: Constipation Informant: patient Narrative Narrative: Patient is a 69-year-old female with past medical history of hypertension hyperlipidemia paroxysmal atrial fibrillation currently on Eliquis and hypothyroidism. She states that she has not had a bowel movement for approximately 3 days. She states her baseline for bowel movements is approximately every other day. She does report previous abdominal surgeries for and cholecystectomy. She denies any previous history of ileus small bowel obstruction or diverticulitis. She states there has been no associated fevers chills nausea or vomiting. She states that today she was able to pass a small amount of stool and gas. She reports that she has not been eating well either and is unsure why she is constipated and secondary to this presents to [facility] ER for evaluation. [facility] Medical History Hypertensive emergency NSTEMI, initial episode of care Emphysema of lung Smoking greater than 30 pack years New onset atrial fibrillation TOLEDO (dyspnea on exertion) Atherosclerotic heart disease of [place] coronary artery without angina pectoris Cardiac murmur Elevated troponin Mitral stenosis Chronic low back pain Diastolic hypertension Chest pain Nicotine dependence, cigarettes, uncomplicated Elevated troponin Depression On home oxygen therapy Atrial fibrillation PAF (paroxysmal atrial fibrillation) Atrial fibrillation Hypothyroidism Smoker Coronary artery disease TIA (transient ischemic attack) Influenza A Nonsustained paroxysmal supraventricular tachycardia Multiple sclerosis Nonobstructive atherosclerosis of coronary artery Peripheral vascular occlusive disease Essential (primary) hypertension Bilateral carotid artery stenosis History of transient ischemic attack (TIA) Fatty liver Thrombocytopenia GERD (gastroesophageal reflux disease) Psoriatic arthritis Psoriasis Osteoporosis Osteoarthritis Goiter Multiple sclerosis HLD (hyperlipidemia) Angina pectoris Chronic pain syndrome Home Medications ?Medication ?Instructions ?Recorded ?Last Taken ?Type cholecalciferol (vitamin D3) 125 5,000 unit PO DAILY s upplement 12/16/13 03/19/25 History mcg (5,000 unit) tablet gabapentin 800 mg tablet 800 mg PO TID MS 07/16/18 History baclofen 20 mg tablet 20 mg PO Q6H MS 08/11/2112/13 History levothyroxine 50 mcg tablet 50 mcg PO DAILY thyroid 03/19/25 History oxycodone 10 mg tablet 10 mg PO Q6H PRN pain 12/01/23 History dextromethorphan-guaifenesin ER 60 1 tab PO Q12H PRN c ough/congest 02/19/24 03/19/25 History mg-1,200 mg tab,extend release,12hr (Mucinex DM) famotidine 40 mg tablet 40 mg PO QDAY PRN indigestio n 11/24/24 03/19/25 History lisinopril 10 mg tablet 10 mg PO BID blood pressure 11/24/24 03/19/25 History aspirin 81 mg tablet,delayed 81 mg PO BREAKFAST heart health 12/11/24 03/19/25 Rx release #30 tabs ipratropium bromide 42 mcg (0.06 2 spray intranasal TI D #15 mL 12/24/24 03/19/25 Rx %) nasal spray amlodipine 5 mg tablet (Norvasc) 2.5 mg (1/2 x 5 mg) P O QDAY #90 01/13/25 03/19/25 Rx tabs carvedilol 3.125 mg tablet 3.125 mg PO BIDCM #180 tabs 03/03/25 03/19/25 Rx apixaban 5 mg tablet (Eliquis) 5 mg PO Q12H anticoagul ation #180 03/09/25 03/19/25 Rx tabs docusate sodium 100 mg capsule 100 mg PO BID 7 days #1 4 caps 04/18/25 Unknown Rx (Colace) naloxegol 25 mg tablet (Movantik) 25 mg PO DAILY 30 da ys #30 tabs 04/18/25 Unknown Rx Allergy/AdvReac Type Severity Reaction Status Date / Time colestipol (From Colestid) Allergy Mild unknown Verified 04/17/25 22:19 pregabalin (From Lyrica) Allergy Mild Hives Verified 04/17/25 22:19 amitriptyline Allergy Rash Verified 04/17/25 22:19 temazepam (From Restoril) AdvReac Mild Nausea/Vom/ Verified 04/17/25 22:19 Diarrhea Antihistamines - Alkylamine AdvReac Nausea/Vom/ Verified 04/17/25 22:19 Diarrhea Antihistamines - Ethanolamine AdvReac Nausea/Vom/ Verified 04/17/25 22:19 Diarrhea Antihistamines - AdvReac Nausea/Vom/ Verified 04/17/25 22:19 Ethylenediamine Diarrhea Antihistamines - Piperazine AdvReac Nausea/Vom/ Verified 04/17/25 22:19 Diarrhea Antihistamines - Piperidine AdvReac Nausea/Vom/ Verified 04/17/25 22:19 Diarrhea aspirin AdvReac I'M ON Verified 04/17/25 22:19 BLOOD THINNERS codeine AdvReac Nausea Verified 04/17/25 22:19 Corticosteroids AdvReac Upset Verified 04/17/25 22:19 (Glucocorticoids) Stomach morphine AdvReac Nausea Verified 04/17/25 22:19 [id number]-GAM-CmT Reductase AdvReac Nausea Verified 04/17/25 22:19 Inhibitor (Zxtwpyk-Skw-Xto Reductase Inhibitor) Family History Mother Cancer CAD (coronary artery disease) Brain tumor Grandfather CVA (cerebral vascular accident) Father CAD (coronary artery disease) Ruptured abdominal aortic aneurysm (AAA) Sister Brain aneurysm Surgical History History of coronary artery stent placement History of appendectomy History of cholecystectomy History of angioplasty of peripheral vessel (07/11/19) Stenosis of left subclavian artery History of left heart catheterization (01/25/15) S/P coil embolization of cerebral aneurysm History of angioplasty of peripheral vessel History of right-sided carotid endarterectomy History of left-sided carotid endarterectomy History of partial thyroidectomy (11/30/05) History of hemorrhoidectomy History of hysterectomy History of section Brain aneurysm Fracture of right lower leg S/P insertion of iliac artery stent History of left breast biopsy H/O hemorrhoidectomy S/P hysterectomy H/O: S/P thyroidectomy Social History household members: none housing: apartment Smoking Status: Light Smoker (<10/day) alcohol intake: never caffeine: Yes Type: coffee and tea ROS ROS ED Constitutional Constitutional ED: Denies chills or fever(s) ENT ENT ED: Denies sore throat Cardiovascular Cardiovascular: Denies chest pain Respiratory/Chest Respiratory/Chest: Denies cough or dyspnea Gastrointestinal Gastrointestinal: Reports constipation; Denies abdominal pain, diarrhea, melena, nausea or vomiting Genitourinary Genitourinary ED: Denies dysuria Musculoskeletal Musculoskeletal: Denies myalgias Integumentary Denies rash Neurologic Neurologic: Denies headache(s) Hematologic/Lymphatic Hematologic/Lymphatic: Reports easy bleeding and easy bruising EXAM Physical Exam Const Vital Signs: 04/17/25 22:17 04/18/25 00:16 04/18/25 01:13 Temperature 97.7 F L 97.7 F L Temperature Source Oral Pulse Rate 89 68 Respiratory Rate 16 16 Blood Pressure 149/83 H 107/68 130/68 H Blood Pressure Mean 105 81 88 Pulse Ox 100 100 Oxygen Delivery Method Room Air Positive well nourished and well developed General Appearance ED: well developed; Negative for pallor HEENT HEENT Narrative: Mucous membranes are slightly dry and tacky No secondary findings in the posterior pharynx to suggest infection Eyes PERRL and EOMs intact bilaterally General Eye ED: Negative for scleral icterus Neck supple Resp normal respiratory effort and clear to auscultation bilaterally Cardio regular rate and regular rhythm GI non-distended and no masses GI Narrative: Abdomen is soft and nondistended with hypoactive bowel sounds. There is mild pain with palpation in the lower abdomen diffusely without vol untary guarding or rigidity No pulsatile mass or fluid wave No increased tympany noted Auscultation: hypoactive bowel sounds Palpation: soft Narrative: Rectal tone is normal. No significant fecal load within the rectal vault. No anal fissure or hemorrhoid formation noted Extremity normal to inspection Neuro oriented x3 and CN's II-XII intact bilaterally Sensorium / Orientation: alert Motor Exam: strength 5/5 throughout Psych Psych Narrative: Patient has a flat affect Skin no rashes or lesions noted General Skin Exam: Negative for jaundice or pallor MDM MDM MDM Narrative Medical decision making narrative: Patient arrived to the ER with stable vitals. She reported constipation. She states her baseline is typically every other day and it has been 3 days since her last bowel movement and therefore this is not completely abnormal. She has had previous abdominal surgeries therefore there is concern for ileus versus obstruction. Chart review was performed and the patient was seen on April 02 for abdominal discomfort and had laboratory studies and a CT scan with IV contrast at that time. The CT scan revealed no signs of acute infection or obstruction or diverticulitis and did show fecal impaction/constipation. This correlates with today's history exam and x-ray. With stable vitals and do not feel there i s need for testing as this is most likely related to her chronic opioid use. Patient was given a enema and manual disimpaction was also performed. There was resolution of a small to moderate amount of stool. At this time as her history exam and workup indicates this is purely constipation most likely from opioid use and not secondary to infection such as diverticulitis or an obstructive process I do not feel that any further intervention is necessary. I will start the patient on Colace to help continue bowel movements and also place her on Movantik as this should reduce the chance for opioid-induced constipation from her chronic use. This plan of care was discussed with the patient who is agreeable to it and is otherwise safe for discharge History & Record Review Discussion w/independent historian: Patient Radiography Diagnostic Testing: Clinical Impression(s) from Imaging Studies Acute Abdomen Series 04/17/25 22:45 IMPRESSION: Constipation. Reading Location: [place] [address] Acute abdominal series with 1 view chest as interpreted by the emergency medicine physician reveals a nonspecific nonobstructed bowel gas pattern with a large fecal burden in the rectal vault consistent with constipation. Chest x- ray component reveals no acute infiltrate or pneumothorax. 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, Chronic pain, Paroxysmal atrial fibrillation, Multiple sclerosis, Chronic, continuous use of opioids, Hypertension Instructions: ED Constipation (Adult) Prescriptions: New docusate sodium [Colace] 100 mg capsule 100 mg PO BID 7 Days Qty: 14 0RF Movantik 25 mg tablet 25 mg PO DAILY 30 Days Qty: 30 0RF Rx Instructions: must be taken on empty stomach; no food 1 hr after or 2-3 hrs before dose No Action gabapentin 800 mg tablet 800 mg PO TID baclofen 20 mg tablet 20 mg PO Q6H levothyroxine 50 mcg tablet 50 mcg PO DAILY Patient Comments: take 1 tablet by mouth once daily oxycodone 10 mg tablet 10 mg PO Q6H PRN Patient Comments: take 1 tab q6 PRN for pain famotidine 40 mg tablet 40 mg PO QDAY PRN (Reason: indigestion) lisinopril 10 mg tablet 10 mg PO BID ipratropium bromide 42 mcg (0.06 %) spray,non-aerosol 2 spray intranasal TID Qty: 15 0RF Rx Instructions: administer into each nostril cholecalciferol (vitamin D3) 5,000 UNIT tablet 5,000 unit PO DAILY Patient Comments: supplement dextromethorphan-guaifenesin [Mucinex DM] 60-1,200 mg tablet extended release 12 hr 1 tab PO Q12H PRN (Reason: cough/congest) aspirin 81 mg Tablet,Delayed Release (Dr/Ec) 81 mg PO BREAKFAST Qty: 30 2RF amlodipine [Norvasc] 5 mg tablet 2.5 mg PO QDAY Qty: 90 3RF carvedilol 3.125 mg tablet 3.125 mg PO BIDCM Qty: 180 3RF Eliquis 5 mg tablet 5 mg PO Q12H Qty: 180 3RF Primary Care Provider: Daron Benton Referrals: Daron Benton MD [Primary Care Provider] - Activity Restrictions/Additional Instructions: Your constipation is most likely related to your oxycodone use for pain control. Please take the Colace twice a day for the next week to help stimulate bowel movements. Begin taking the Movantik as directed as well as this should help reduce the constipation/gut slowing from the oxycodone use. There are no signs of bowel blockage or perforation or infectious process noted on today's exam. Return to the ER should you have any further concerns or worsening of symptoms. Print Language: Upper Sorbian Disposition Disposition: Home, Self Care Discharge Date/Time: 04/18/25 01:43
--- NOTE | 2025-04-17 22:45 | RAD_ITS ---
PROCEDURE: ACUTE ABDOMEN INC CHEST 04/17/2025 REASON FOR EXAM: ABD PAIN TECHNIQUE: Single view chest with supine and upright views of the abdomen. COMPARISON: 04/02/2025 CT. 01/10/2025 radiograph. FINDINGS: Hardware: Bilateral iliac stents. Heart: Cardiac and mediastinal contours are stable. Lungs: The lungs are clear. Bowel gas: Bowel gas pattern is remarkable for mild constipation. No evidence of bowel obstruction. Free air: No free air. Calcifications: No suspicious calcifications. Bones: There are degenerative changes of the spine. RAD/Acute Abdomen Inc Chest IMPRESSION: Constipation. Reading Location: [place] [address]
[2025-04-18 00:16] VITALS: BP 107/68
[2025-04-18 01:13] VITALS: BP 130/68; PULSE 68; RESP 16; TEMP 36.5; O2SAT 100
== END 2025-04-18 01:43 | disposition home or self-care (01) ==
PROVIDERS: Emergency Provider Emergency Medicine; PCP Family Medicine; Referring Provider Emergency Medicine; Visit Provider Emergency Medicine
DX: K59.03 Drug induced constipation (principal); G35 Multiple sclerosis; I48.0 Paroxysmal atrial fibrillation; T40.2X5A Adverse effect of other opioids, initial encounter; G89.4 Chronic pain syndrome; I25.10 Atherosclerotic heart disease of native coronary artery without angina pectoris; I25.2 Old myocardial infarction; E78.5 Hyperlipidemia, unspecified; I10 Essential (primary) hypertension; F17.210 Nicotine dependence, cigarettes, uncomplicated; Z95.5 Presence of coronary angioplasty implant and graft; Z79.01 Long term (current) use of anticoagulants; Z79.82 Long term (current) use of aspirin; Z79.891 Long term (current) use of opiate analgesic; Z79.899 Other long term (current) drug therapy
CPT/HCPCS: 99285; 74022

== ENCOUNTER 2025-04-18 18:16 | Inpatient (IN) | payer MEDICARE, MEDICAID, SELFPAY ==
[2025-04-18] VITALS (19 sets, daily range): BP systolic 80–146; BP diastolic 49–89; PULSE 61–113; RESP 9–21; TEMP 36.6–37.2; O2SAT 95–100; BMI 16.9; BMI 16.7
--- NOTE | 2025-04-18 18:39 | EKG12_ITS ---
Test Reason : DYSRHYTHMIA Blood Pressure : */* mmHG Vent. Rate : 68 BPM Atrial Rate : 68 BPM P-R Int : 152 ms QRS Dur : 82 ms QT Int : 456 ms P-R-T Axes : 74 40 61 degrees QTcB Int : 484 ms Normal sinus rhythm Possible Left atrial enlargement QTcB >= 480 msec Abnormal ECG Confirmed by Roberto Smiley ([id number]), editor publications SELAM BARRETO ([id number]) on 04/20/2025 10:56:07 AM Referred By: Sachin Murillo Confirmed By: Roberto Smiley
[2025-04-18] MEDS: 0.9% Normal Saline (500mL Bag) 500 ML 1000 ML IV (18:45)
--- NOTE | 2025-04-18 18:46 | EX.ED.DYSGE1 ---
HPI History of Present Illness Chief Complaint: Abd Pain Detail of Chief Complaint: Patient states he retracted she is no better. She was seen for chronic dennis Informant: patient Onset/Context/Timing Onset: Today (Sour eructations and heartburn) Context: Sudden Onset Timing: Intermittent Quality: Burning sensation back of the throat Location: Previously described Current Severity: Mild Maximum Severity: Severe Worsened by: Nothing Relieved by: Nothing Associated Symptoms Associated Symptoms: Patient reports black stool yesterday. She took Pepto-Bismol today. Narrative Narrative: Patient is a 69-year-old woman. She has multiple medical problems which includes cognitive impairment of unknown etiology, paroxysmal atrial fibrillation on apixaban, hyperlipidemia, non-ST elevation ID, alpha-1 antitrypsin deficiency, mitral valve stenosis, chronic pain and hyperlipidemia. Review of inpatient notes indicates patient has bilateral carotid stenosis. Patient was seen yesterday for chronic pain. Patient appears pale. She states she feels weak. Initial blood pressure was 89 systolic. She normally has hypertension based on review of prior records. She denies chest pressure, tightness or heaviness. She denies hematemesis or coffee-ground emesis. She denies shortness of breath. She does report epigastric discomfort. She denies intolerance to greasy or fried foods. She has no known history of hepatic or biliary disease. She denies dysuria, frequency, urgency or hematuria. She does endorse being lightheaded when she is upright. Prior similar symptoms: No Recent Illness/Hospitalization: Yes [facility] Medical History Hypertensive emergency NSTEMI, initial episode of care Emphysema of lung Smoking greater than 30 pack years New onset atrial fibrillation [place] (dyspnea on exertion) Atherosclerotic heart disease of [place] coronary artery without angina pectoris Cardiac murmur Elevated troponin Mitral stenosis Chronic low back pain Diastolic hypertension Chest pain Nicotine dependence, cigarettes, uncomplicated Elevated troponin Depression On home oxygen therapy Atrial fibrillation PAF (paroxysmal atrial fibrillation) Atrial fibrillation Hypothyroidism Smoker Coronary artery disease TIA (transient ischemic attack) Influenza A Nonsustained paroxysmal supraventricular tachycardia Multiple sclerosis Nonobstructive atherosclerosis of coronary artery Peripheral vascular occlusive disease Essential (primary) hypertension Bilateral carotid artery stenosis History of transient ischemic attack (TIA) Fatty liver Thrombocytopenia GERD (gastroesophageal reflux disease) Psoriatic arthritis Psoriasis Osteoporosis Osteoarthritis Goiter Multiple sclerosis HLD (hyperlipidemia) Angina pectoris Chronic pain syndrome Home Medications ?Medication ?Instructions ?Recorded ?Last Taken ?Type gabapentin 800 mg tablet 800 mg PO TID MS 07/16/18 03/19/25 History baclofen 20 mg tablet 20 mg PO Q6H MS 08/11/21 03/19/25 History levothyroxine 50 mcg tablet 50 mcg PO DAILY thyroid 08/11/21 03/19/25 History oxycodone 10 mg tablet 10 mg PO Q6H PRN pain 05/24/23 12/01/23 History dextromethorphan-guaifenesin ER 60 1 tab PO Q12H PRN cough/congest 02/19/24 03/19/25 History mg-1,200 mg tab,extend release,12hr (Mucinex DM) famotidine 40 mg tablet 40 mg PO QDAY PRN indigestion 11/24/24 03/19/25 History lisinopril 10 mg tablet 10 mg PO BID blood pressure 11/24/24 03/19/25 History aspirin 81 mg tablet,delayed 81 mg PO BREAKFAST heart health 12/11/24 03/19/25 Rx release #30 tabs amlodipine 5 mg tablet (Norvasc) 2.5 mg (1/2 x 5 mg) PO QDAY #90 01/13/25 03/19/25 Rx tabs carvedilol 3.125 mg tablet 3.125 mg PO BIDCM #180 tabs 03/03/25 03/19/25 Rx apixaban 5 mg tablet (Eliquis) 5 mg PO Q12H anticoagulation #180 03/09/25 03/19/25 Rx tabs cholecalciferol (vitamin D3) 125 125 mcg PO DAILY 04/18/25 Unknown History mcg (5,000 unit) capsule docusate sodium 100 mg capsule 100 mg PO BID 7 days #14 caps 04/18/25 Unknown Rx (Colace) doxepin 10 mg/mL oral concentrate 5 - 10 mg PO QHS 04/18/25 Unknown History ipratropium bromide 42 mcg (0.06 2 spray intranasal TID PRN allergy 04/18/25 Unknown History %) nasal spray symptoms naloxegol 25 mg tablet (Movantik) 25 mg PO DAILY 30 days #30 tabs 04/18/25 Unknown Rx rosuvastatin 10 mg tablet 10 mg PO QHS 04/18/25 Unknown History Allergy/AdvReac Type Severity Reaction Status Date / Time colestipol (From Colestid) Allergy Mild unknown Verified 04/18/25 18:19 pregabalin (From Lyrica) Allergy Mild Hives Verified 04/18/25 18:19 amitriptyline Allergy Rash Verified 04/18/25 18:19 temazepam (From Restoril) AdvReac Mild Nausea/Vom/ Verified 04/18/25 18:19 Diarrhea Antihistamines - Alkylamine AdvReac Nausea/Vom/ Verified 04/18/25 18:19 Diarrhea Antihistamines - Ethanolamine AdvReac Nausea/Vom/ Verified 04/18/25 18:19 Diarrhea Antihistamines - AdvReac Nausea/Vom/ Verified 04/18/25 18:19 Ethylenediamine Diarrhea Antihistamines - Piperazine AdvReac Nausea/Vom/ Verified 04/18/25 18:19 Diarrhea Antihistamines - Piperidine AdvReac Nausea/Vom/ Verified 04/18/25 18:19 Diarrhea aspirin AdvReac I'M ON Verified 04/18/25 18:19 BLOOD THINNERS codeine AdvReac Nausea Verified 04/18/25 18:19 Corticosteroids AdvReac Upset Verified 04/18/25 18:19 (Glucocorticoids) Stomach morphine AdvReac Nausea Verified 04/18/25 18:19 Xdbftcg-LYD-NgG Reductase AdvReac Nausea Verified 04/18/25 18:19 Inhibitor (Mpuvepr-Jsr-Hzn Reductase Inhibitor) Family History Mother Cancer CAD (coronary artery disease) Brain tumor Grandfather CVA (cerebral vascular accident) Father CAD (coronary artery disease) Ruptured abdominal aortic aneurysm (AAA) Sister Brain aneurysm Surgical History History of coronary artery stent placement History of appendectomy History of cholecystectomy History of angioplasty of peripheral vessel (07/11/19) Stenosis of left subclavian artery History of left heart catheterization (01/25/15) S/P coil embolization of cerebral aneurysm History of angioplasty of peripheral vessel History of right-sided carotid endarterectomy History of left-sided carotid endarterectomy History of partial thyroidectomy (11/30/05) History of hemorrhoidectomy History of hysterectomy History of section Brain aneurysm Fracture of right lower leg S/P insertion of iliac artery stent History of left breast biopsy H/O hemorrhoidectomy S/P hysterectomy H/O: S/P thyroidectomy Social History household members: none housing: apartment Smoking Status: Light Smoker (<10/day) alcohol intake: never caffeine: Yes Type: coffee and tea ROS ROS ED Constitutional Constitutional ED: Reports chills; Denies fever(s), subjective, sweats or weight loss Eyes Eyes: Denies blurry vision or change in vision ENT ENT ED: Denies ear pain, rhinorrhea or sore throat Cardiovascular Cardiovascular: Denies chest pain, orthopnea, palpitations, paroxysmal nocturnal dyspnea or racing heartbeat Respiratory/Chest Respiratory/Chest: Denies cough, dyspnea, dyspnea on exertion, orthopnea or paroxysmal nocturnal dyspnea Gastrointestinal Gastrointestinal: Reports abdominal pain and other Details: Further detailed HPI narrative ; Denies constipation, diarrhea, melena, nausea or vomiting Musculoskeletal Musculoskeletal: Denies arthralgias, back pain or myalgias Integumentary Denies rash Neurologic Neurologic: Denies headache(s), paresthesias or weakness Psychiatric Psychiatric: Denies anxiety or depression Endocrine Endocrinology: Denies cold intolerance or heat intolerance Hematologic/Lymphatic Hematologic/Lymphatic: Reports systems reviewed and no addt'l complaints, except as documented EXAM Physical Exam Const Vital Signs: 04/18/25 18:17 04/18/25 18:30 04/18/25 18:34 Temperature 98 F Temperature Source Oral Pulse Rate 113 H 70 70 Respiratory Rate 16 12 Respiratory Effort Respiratory Pattern Blood Pressure 89/49 L 80/67 L 119/66 Blood Pressure Mean 62 71 83 Pulse Ox 98 99 Oxygen Delivery Method Room Air Room Air 04/18/25 18:45 04/18/25 18:50 04/18/25 18:55 Temperature Temperature Source Pulse Rate 65 68 Respiratory Rate 12 Respiratory Effort Normal Respiratory Pattern Normal Blood Pressure 111/65 Blood Pressure Mean 80 Pulse Ox 100 100 Oxygen Delivery Method 04/18/25 19:00 04/18/25 19:00 04/18/25 19:15 Temperature Temperature Source Pulse Rate 66 62 Respiratory Rate 11 L Respiratory Effort Respiratory Pattern Blood Pressure 123/63 H 123/63 H 109/63 Blood Pressure Mean 83 81 77 Pulse Ox 95 Oxygen Delivery Method 04/18/25 19:16 04/18/25 19:27 04/18/25 19:30 Temperature Temperature Source Pulse Rate 64 63 62 Respiratory Rate 15 12 Respiratory Effort Respiratory Pattern Blood Pressure 109/63 109/63 116/58 L Blood Pressure Mean 78 78 75 Pulse Ox 100 100 Oxygen Delivery Method Room Air 04/18/25 19:45 04/18/25 20:00 04/18/25 20:00 Temperature Temperature Source Pulse Rate 67 65 Respiratory Rate 9 L 15 Respiratory Effort Respiratory Pattern Blood Pressure 145/67 H 125/60 H 125/60 H Blood Pressure Mean 88 81 80 Pulse Ox 99 98 Oxygen Delivery Method Room Air Room Air 04/18/25 20:15 04/18/25 20:30 04/18/25 20:45 Temperature Temperature Source Pulse Rate 63 63 69 Respiratory Rate 15 10 L 12 Respiratory Effort Respiratory Pattern Blood Pressure 124/66 H 122/69 H 140/71 H Blood Pressure Mean 83 85 91 Pulse Ox 98 99 100 Oxygen Delivery Method Room Air 04/18/25 21:00 Temperature Temperature Source Pulse Rate 85 Respiratory Rate 11 L Respiratory Effort Respiratory Pattern Blood Pressure 146/89 H Blood Pressure Mean 105 Pulse Ox 100 Oxygen Delivery Method Room Air Positive well nourished and well developed Constitutional Narrative: Patient is very pale. She is hypotensive. General Appearance ED: well developed and pallor HEENT Reports moist mucous membranes HEENT Narrative: Head is atraumatic no cephalic. Ears normal. Nares patent. Posterior pharynx is normal. Eyes PERRL and EOMs intact bilaterally General Eye ED: Yes pale conjunctiva; Negative for scleral icterus Neck no lymphadenopathy, supple and no JVD Chest Wall inspection of chest normal and palpation of chest normal Resp normal respiratory effort and clear to auscultation bilaterally Cardio regular rate, regular rhythm, S1 normal heart sound, S2 normal heart sound and no murmurs GI no masses; Negative for non-tender, non-distended or hepatosplenomegaly Inspection: abdominal distention Auscultation: hypoactive bowel sounds Palpation: soft and tender RUQ and Littlejohn's sign Back/Spine no CVA tenderness Thoracic Spine / Upper Back: Negative for thoracic spinal tenderness Lumbar Spine / Lower Back: Negative for lumbar spinal tenderness Extremity normal to inspection General Extremety ED: Negative for edema or tenderness General Extremity: Negative for edema Neuro oriented x3 and CN's II-XII intact bilaterally Sensorium / Orientation: alert Psych mental status grossly normal Skin no rashes or lesions noted, no wounds and skin turgor normal General Skin Exam: pallor; Negative for elasticity normal or jaundice MDM MDM MDM Narrative Medical decision making narrative: Patient is orthostatic/hypotensive. She is also very pale. She reported black stool last evening. Rectal exam reveals no fissures, fistulas or hemorrhoids. Material that was in the rectal vault is light brown. There is no blood or black or maroon stool. There is no palpable mass. Need to evaluate for GI bleed, hypovolemia, possible cardiac ischemia and need to consider infectious etiology and possible biliary pathology with the right upper quadrant tenderness. Since she was hypotensive she received a 500 cc bolus which is equivalent to 10 cc/kg. She was typed and screened. No labs were obtained prior to ER visits. She was admitted December of this year for hypertensive emergency and demand ischemia due to the hypertensive emergency. History & Record Review Additional record(s) reviewed:: Prior inpatient record, Prior ED visit and Prior labs Lab Data Attestation: I reviewed the patient's lab results. Lab results narrative: CBC is remarkable for an H&H of 7.3 and 23.5 with an MCV of 79. H&H on April 02 was 8.8 and 28.2 with a normal MCV. December 2024 H&H was 12.5 and 39.1. Creatinine is elevated at 1.28. On 02 April the creatinine was 1.23 and February 08, 2025 creatinine was 1.06. Estimated GFR today is 45. Lipase is normal. Liver enzymes are normal. Lactate is elevated 2.6. Second troponin is 24 with a delta of -6 Labs: Laboratory Results - last 24 hr 04/18/25 04/18/25 04/18/25 18:36 18:47 19:18 WBC 8.7 RBC 2.97 L Hgb 7.3 L Hct 23.5 L MCV 79.1 L MCH 24.6 L MCHC 31.1 L RDW Std Deviation 50.4 H RDW Coeff of David 17.3 H Plt Count 195 MPV 9.6 Immature Gran % (Auto) 0.500 Neut % (Auto) 79.5 H Lymph % (Auto) 9.5 L [place] % (Auto) 9.4 Eos % (Auto) 0.5 Baso % (Auto) 0.6 Absolute Neuts (auto) 7.0 Absolute Lymphs (auto) 0.83 Nucleated RBC % 0.2 Sodium 133 Potassium 3.8 Chloride 97 L Carbon Dioxide 21.0 Anion Gap 15 BUN 24 H Creatinine 1.28 H Estim Creat Clear Calc 29.72 L Est GFR (MDRD) Non-Af 45 L BUN/Creatinine Ratio 18.9 Glucose 135 H Lactic Acid 2.6 H* Calcium 9.0 Iron TIBC Iron Saturation Unsaturated IBC Ferritin Total Bilirubin 0.35 AST 16 ALT 8 Alkaline Phosphatase 88 Troponin T High Sens 30 H Troponin T Hi Sens 2 Hr Total Protein 6.4 Albumin 4.1 Globulin 2.4 Albumin/Globulin Ratio 1.7 Lipase 15 POC Glucose 121 H Blood Type Cancelled O POSITIVE Antibody Screen Cancelled NEGATIVE 04/18/25 20:29 WBC RBC Hgb Hct MCV MCH MCHC RDW Std Deviation RDW Coeff of David Plt Count MPV Immature Gran % (Auto) Neut % (Auto) Lymph % (Auto) [place] % (Auto) Eos % (Auto) Baso % (Auto) Absolute Neuts (auto) Absolute Lymphs (auto) Nucleated RBC % Sodium Potassium Chloride Carbon Dioxide Anion Gap BUN Creatinine Estim Creat Clear Calc Est GFR (MDRD) Non-Af BUN/Creatinine Ratio Glucose Lactic Acid Calcium Iron 16 L TIBC 372 Iron Saturation 4.0 L Unsaturated IBC 356 Ferritin 12 L Total Bilirubin AST ALT Alkaline Phosphatase Troponin T High Sens Troponin T Hi Sens 2 Hr 24 H Total Protein Albumin Globulin Albumin/Globulin Ratio Lipase POC Glucose Blood Type Antibody Screen EKG Initial EKG: Attestation: I personally reviewed and interpreted this EKG as follows: Interpretation: Sinus Rhythm (Rate is 68. AR interval is 102 ms. Cures duration 82 ms. QT duration 456 ms. QTc is prolonged at 484 ms. [place] is normal. There is no acute ischemic changes noted.) Management Discussion w/another healthcare provider: Hospitalist (Evening hospitalist was paged. Patient will need admission with further workup. She did not receive blood in the emergency department.) Discharge Plan Dx/Rx/DC Orders Clinical Impression: Acute hypotension, Orthostatic hypotension, Acute on chronic anemia, Microcytic anemia, Signs and symptoms of anemia, Symptomatic anemia, 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 laboratory monitor Disposition Disposition: [facility] Discharge Date/Time: 04/18/25 21:33
[2025-04-18 18:51] LABS: Absolute Lymphocyte Count 0.83 X10^3/uL (0.83-4.51); Basophil# 0.05 X10^3/uL; Basophil% 0.6 % (0-1); Eosinophil# 0.04 X10^3/uL; Eosinophils% 0.5 % (0-5); Hematocrit 23.5 % (37-47); Hemoglobin 7.3 g/dL (12.0-15.0); Lymphocyte # 0.83 X10^3/ul (0.83-4.51); Lymphocyte % 9.5 % (19-41); Mean Corp Hgb Conc 31.1 g/dL (32-36); Mean Corpuscular Hgb 24.6 pg (27.0-32.0); Mean Corpuscular Volume 79.1 fL (81-99); Mean Platelet Vol. 9.6 fl (6.2-12.0); Monocyte# 0.82 X10^3/uL; Monocyte% 9.4 % (0-10); NRBC Flagged by Analyzer 0.2 % (0-5); Neutrophil # 6.95 X10^3/uL (2.7-7.7); Neutrophil % 79.5 % (47-70); Platelet Count 195 K/mm3 (150-450); RBC Distribution Width CV 17.3 % (11.6-14.6); RBC Distribution Width SD 50.4 fl (35.1-43.9); Red Blood Count 2.97 M/mm3 (4.2-5.4); White Blood Count 8.7 K/mm3 (4.4-11.0)
[2025-04-18 19:08] LABS: Bedside Glucose 121 mg/dL (74-106)
[2025-04-18 19:12] LABS: ALB/GLOB Ratio 1.7 RATIO (0.9-2.4); AST(SGOT) 16 U/L (<=31); Alanine Aminotransfer ALT/SGPT 8 U/L (<=34); Albumin, Serum 4.1 g/dL (3.4-4.8); Alkaline Phosphatase 88 U/L (35-104); Anion Gap 15 (5-15); BUN 24 mg/dL (4-19); BUN/Creat Ratio 18.9 RATIO (10-20); Chloride 97 mmol/L (98-108); Creatinine, Serum 1.28 mg/dL (0.70-1.20); EST Glomerular Filtration Rate 45 (>60); Estimated Creatinine Clearance 29.72 ml/min (50-250); Globulin 2.4 g/dL (2.2-4.2); Glucose 135 mg/dL (70-99); Lipase 15 U/L (13-75); Potassium 3.8 mmol/L (3.3-5.1); Protein, Total 6.4 g/dL (5.9-8.4); Sodium Level 133 mmol/L (133-145); Total Bilirubin 0.35 mg/dL (0.00-1.30)
[2025-04-18 19:46] LABS: Lactic Acid 2.6 mmol/L (0.0-2.0)
[2025-04-18 19:57] LABS: Troponin T High Sensitivity 30 ng/L (<=14)
[2025-04-18] MEDS: Ondansetron 4 MG/2 ML Vial IV (20:10)
[2025-04-18] MEDS: Morphine 2 MG/ML Syringe IV (20:10)
[2025-04-18 20:47] LABS: Troponin T High Sens 2 HR 24 ng/L (<=14)
--- NOTE | 2025-04-18 21:27 | PCM.HP.STD ---
HPI - General General Date of Admission: 04/18/25 HPI Narrative ADY WALLER, is a 69 F who presents to the hospital for increasing abdominal pain. No leukocytosis or fevers and she denies any bloody bowel movements or hematemesis however she was in the ER last evening for constipation and she was given an enema and after she had a bowel movement she felt a little bit better. Today she is complaining of epigastric burning pain and she has had ulcers in the past. Hemoglobin earlier this month was 8.8, today at 7.3. She has been normal recently but she has had periods in the past where she has been as low. She was having abdominal pain on 04/02/[address] scan at that time indicated a significant stool burden but no other acute findings. She denies any lightheadedness or dizziness, no nausea or vomiting. [facility] Medical History Hypertensive emergency NSTEMI, initial episode of care Emphysema of lung Smoking greater than 30 pack years New onset atrial fibrillation [place] (dyspnea on exertion) Atherosclerotic heart disease of [place] coronary artery without angina pectoris Cardiac murmur Elevated troponin Mitral stenosis Chronic low back pain Diastolic hypertension Chest pain Nicotine dependence, cigarettes, uncomplicated Elevated troponin Depression On home oxygen therapy Atrial fibrillation PAF (paroxysmal atrial fibrillation) Atrial fibrillation Hypothyroidism Smoker Coronary artery disease TIA (transient ischemic attack) Influenza A Nonsustained paroxysmal supraventricular tachycardia Multiple sclerosis Nonobstructive atherosclerosis of coronary artery Peripheral vascular occlusive disease Essential (primary) hypertension Bilateral carotid artery stenosis History of transient ischemic attack (TIA) Fatty liver Thrombocytopenia GERD (gastroesophageal reflux disease) Psoriatic arthritis Psoriasis Osteoporosis Osteoarthritis Goiter Multiple sclerosis HLD (hyperlipidemia) Angina pectoris Chronic pain syndrome Home Medications ?Medication ?Instructions ?Recorded ?Last Taken ?Type gabapentin 800 mg tablet 800 mg PO TID MS 07/16/18 03/19/25 History baclofen 20 mg tablet 20 mg PO Q6H MS 08/11/21 03/19/25 History levothyroxine 50 mcg tablet 50 mcg PO DAILY thyroid 08/11/21 03/19/25 History oxycodone 10 mg tablet 10 mg PO Q6H PRN pain 05/24/23 12/01/23 History dextromethorphan-guaifenesin ER 60 1 tab PO Q12H PRN cough/congest 02/19/24 03/19/25 History mg-1,200 mg tab,extend release,12hr (Mucinex DM) famotidine 40 mg tablet 40 mg PO QDAY PRN indigestion 11/24/24 03/19/25 History lisinopril 10 mg tablet 10 mg PO BID blood pressure 11/24/24 03/19/25 History aspirin 81 mg tablet,delayed 81 mg PO BREAKFAST heart health 12/11/24 03/19/25 Rx release #30 tabs amlodipine 5 mg tablet (Norvasc) 2.5 mg (1/2 x 5 mg) PO QDAY bp #90 01/13/25 03/19/25 Rx tabs carvedilol 3.125 mg tablet 3.125 mg PO BIDCM heart #180 tabs 03/03/25 03/19/25 Rx apixaban 5 mg tablet (Eliquis) 5 mg PO Q12H anticoagulation #180 03/09/25 03/19/25 Rx tabs cholecalciferol (vitamin D3) 125 125 mcg PO DAILY supplement 04/18/25 Unknown History mcg (5,000 unit) capsule docusate sodium 100 mg capsule 100 mg PO BID stool softener 7 04/18/25 Unknown Rx (Colace) days #14 caps doxepin 10 mg/mL oral concentrate 5 - 10 mg PO QHS 04/18/25 Unknown History ipratropium bromide 42 mcg (0.06 2 spray intranasal TID PRN allergy 04/18/25 Unknown History %) nasal spray symptoms naloxegol 25 mg tablet (Movantik) 25 mg PO DAILY 30 days #30 tabs 04/18/25 Unknown Rx rosuvastatin 10 mg tablet 10 mg PO QHS hld 04/18/25 Unknown History Allergy/AdvReac Type Severity Reaction Status Date / Time colestipol (From Colestid) Allergy Mild unknown Verified 04/18/25 18:19 pregabalin (From Lyrica) Allergy Mild Hives Verified 04/18/25 18:19 amitriptyline Allergy Rash Verified 04/18/25 18:19 temazepam (From Restoril) AdvReac Mild Nausea/Vom/ Verified 04/18/25 18:19 Diarrhea Antihistamines - Alkylamine AdvReac Nausea/Vom/ Verified 04/18/25 18:19 Diarrhea Antihistamines - Ethanolamine AdvReac Nausea/Vom/ Verified 04/18/25 18:19 Diarrhea Antihistamines - AdvReac Nausea/Vom/ Verified 04/18/25 18:19 Ethylenediamine Diarrhea Antihistamines - Piperazine AdvReac Nausea/Vom/ Verified 04/18/25 18:19 Diarrhea Antihistamines - Piperidine AdvReac Nausea/Vom/ Verified 04/18/25 18:19 Diarrhea aspirin AdvReac I'M ON Verified 04/18/25 18:19 BLOOD THINNERS codeine AdvReac Nausea Verified 04/18/25 18:19 Corticosteroids AdvReac Upset Verified 04/18/25 18:19 (Glucocorticoids) Stomach morphine AdvReac Nausea Verified 04/18/25 18:19 Npcdind-ULG-UtC Reductase AdvReac Nausea Verified 04/18/25 18:19 Inhibitor ([place]-Rgu-Loz Reductase Inhibitor) Family History Mother Cancer CAD (coronary artery disease) Brain tumor Grandfather CVA (cerebral vascular accident) Father CAD (coronary artery disease) Ruptured abdominal aortic aneurysm (AAA) Sister Brain aneurysm Surgical History History of coronary artery stent placement History of appendectomy History of cholecystectomy History of angioplasty of peripheral vessel (07/11/19) Stenosis of left subclavian artery History of left heart catheterization (01/25/15) S/P coil embolization of cerebral aneurysm History of angioplasty of peripheral vessel History of right-sided carotid endarterectomy History of left-sided carotid endarterectomy History of partial thyroidectomy (11/30/05) History of hemorrhoidectomy History of hysterectomy History of section Brain aneurysm Fracture of right lower leg S/P insertion of iliac artery stent History of left breast biopsy H/O hemorrhoidectomy S/P hysterectomy H/O: S/P thyroidectomy Social History household members: none housing: apartment Smoking Status: Light Smoker (<10/day) alcohol intake: never caffeine: Yes Type: coffee and tea ROS Constitutional Constitutional: Denies chills, fatigue, fever(s) or malaise Eyes Eyes: Denies blurry vision ENT HEENT: Denies headache(s) or nasal discharge Cardiovascular Cardiovascular: Denies chest pain, dyspnea on exertion or syncope Respiratory/Chest Respiratory/Chest: Denies cough, shortness of breath at rest or shortness of breath with exertion Gastrointestinal Gastrointestinal: Reports abdominal pain; Denies constipation, diarrhea, nausea or vomiting Genitourinary Genitourinary: Denies dysuria Neurologic Neurologic: Denies focal weakness, numbness or tremor(s) Psychiatric Psychiatric: Denies anxiety or depression Vital Signs Vital Signs Vital Signs: 04/18/25 18:17 04/18/25 18:30 04/18/25 18:34 Temperature 98 F Temperature Source Oral Pulse Rate 113 H 70 70 Respiratory Rate 16 12 Respiratory Effort Respiratory Pattern Blood Pressure 89/49 L 80/67 L 119/66 Blood Pressure Mean 62 71 83 Pulse Ox 98 99 Oxygen Delivery Method Room Air Room Air 04/18/25 18:45 04/18/25 18:50 04/18/25 18:55 Temperature Temperature Source Pulse Rate 65 68 Respiratory Rate 12 Respiratory Effort Normal Respiratory Pattern Normal Blood Pressure 111/65 Blood Pressure Mean 80 Pulse Ox 100 100 Oxygen Delivery Method 04/18/25 19:00 04/18/25 19:00 04/18/25 19:15 Temperature Temperature Source Pulse Rate 66 62 Respiratory Rate 11 L Respiratory Effort Respiratory Pattern Blood Pressure 123/63 H 123/63 H 109/63 Blood Pressure Mean 83 81 77 Pulse Ox 95 Oxygen Delivery Method 04/18/25 19:16 04/18/25 19:27 04/18/25 19:30 Temperature Temperature Source Pulse Rate 64 63 62 Respiratory Rate 15 12 Respiratory Effort Respiratory Pattern Blood Pressure 109/63 109/63 116/58 L Blood Pressure Mean 78 78 75 Pulse Ox 100 100 Oxygen Delivery Method Room Air 04/18/25 19:45 04/18/25 20:00 04/18/25 20:00 Temperature Temperature Source Pulse Rate 67 65 Respiratory Rate 9 L 15 Respiratory Effort Respiratory Pattern Blood Pressure 145/67 H 125/60 H 125/60 H Blood Pressure Mean 88 81 80 Pulse Ox 99 98 Oxygen Delivery Method Room Air Room Air 04/18/25 20:15 04/18/25 20:30 04/18/25 20:45 Temperature Temperature Source Pulse Rate 63 63 69 Respiratory Rate 15 10 L 12 Respiratory Effort Respiratory Pattern Blood Pressure 124/66 H 122/69 H 140/71 H Blood Pressure Mean 83 85 91 Pulse Ox 98 99 100 Oxygen Delivery Method Room Air 04/18/25 21:00 04/18/25 21:23 Temperature 98.9 F Temperature Source Pulse Rate 85 62 Respiratory Rate 11 L 21 H Respiratory Effort Respiratory Pattern Blood Pressure 146/89 H 141/79 H Blood Pressure Mean 105 99 Pulse Ox 100 100 Oxygen Delivery Method Room Air Weight Weight: 101 lb 8 oz Body Mass Index (BMI) 16.9 Physical Exam Narrative General: Alert, Oriented x3, Cooperative, No apparent distress pale, HEENT: Atraumatic, PERRLA, EOMI, Normocephalic Oral: Moist Mucosa Neck: Supple, No JVD Lungs: Diminished, Normal air movement, No rhonchi, No wheeze, No rales Cardiovascular: Regular rate, Regular Rhythm, Normal S1, Normal S2, No murmurs Abdomen: Soft, Non Tender, Non-Distended, No Hepato-splenomegaly Extremities: No edema, Capillary Refill Less than 3 Seconds Skin: No rashes, No breakdown Musculoskeletal: No Tenderness to Palpation of Joints or Extremities Neurological: No focal neurological deficits, moves all extremities Psych/Mental Status: Normal Affect, Appropriate Results Lab / Micro Data 04/18/25 18:36 04/18/25 18:36 Labs: Laboratory Results - last 24 hr 04/18/25 18:36: WBC 8.7, RBC 2.97 L, Hgb 7.3 L, Hct 23.5 L, MCV 79.1 L, MCH 24.6 L, MCHC 31.1 L, RDW Std Deviation 50.4 H, RDW Coeff of David 17.3 H, Plt Count 195, MPV 9.6, Immature Gran % (Auto) 0.500, Neut % (Auto) 79.5 H, Lymph % (Auto) 9.5 L, [place] % (Auto) 9.4, Eos % (Auto) 0.5, Baso % (Auto) 0.6, Absolute Neuts (auto) 7.0, Absolute Lymphs (auto) 0.83, Nucleated RBC % 0.2, Sodium 133, Potassium 3.8, Chloride 97 L, Carbon Dioxide 21.0, Anion Gap 15, BUN 24 H, Creatinine 1.28 H, Estim Creat Clear Calc 29.72 L, Est GFR (MDRD) Non-Af 45 L, BUN/Creatinine Ratio 18.9, Glucose 135 H, Lactic Acid 2.6 H*, Calcium 9.0, Total Bilirubin 0.35, AST 16, ALT 8, Alkaline Phosphatase 88, Troponin T High Sens 30 H, Total Protein 6.4, Albumin 4.1, Globulin 2.4, Albumin/Globulin Ratio 1.7, Lipase 15, Blood Type Cancelled, Antibody Screen Cancelled 04/18/25 18:47: POC Glucose 121 H 04/18/25 19:18: Blood Type O POSITIVE, Antibody Screen NEGATIVE 04/18/25 20:29: Troponin T Hi Sens 2 Hr 24 H Assessment & Plan Assessment/Plan (1) Symptomatic anemia: PLAN: Plan 1. Symptomatic anemia ? She had a colonoscopy in 2023 with external/internal hemorrhoids and multiple polyps that were resected she also had an EGD at the same time with 2 nonbleeding AVMs in her duodenum that were treated ? Continue PPI ? Will recheck her H&H around 1 AM ? Hemoglobin is down to 7.3 today it was 8.8 two weeks ago ? She denies any dark stools or hematemesis ? Fecal occult is pending ? She has been having issues with constipation so also placed her on twice daily MiraLAX 2. Paroxysmal A-fib/history of CVA/PAD with iliac stent/history of TIA/nonobstructive CAD/essential HTN/HLD ? Will hold her Eliquis ? Will hold her blood pressures as she was little bit soft initially when she came into the hospital but she did get some fluid ? Continue with Crestor 3. Hypothyroidism ? Stable ? Continue with Synthroid 4. History of MS ? Continue with her home medications DVT: SCDs Charges/Coding Visit Charges Inpatient E&M: 03297 Init Hosp L2
[2025-04-18 22:33] LABS: Ferritin 12 ng/mL (22-378); Iron 16 ug/dL (50-170); Iron Binding Capacity,Total 372 ug/dL (250-450); Iron Binding Capacity,Unsat 356 ug/dL (228-428)
[2025-04-18] MEDS: Docusate Sodium 100 MG Capsule PO (22:36)
[2025-04-18] MEDS: Pantoprazole Sodium 40 MG in 0.9% Normal Saline (100mL MB+) 100 ML 330 MG IV (22:36)
[2025-04-18] MEDS: Atorvastatin Calcium 20 MG Tablet PO (22:37)
[2025-04-18] MEDS: Polyethylene Glycol 3350 17 GM PACKET PO (22:37)
[2025-04-18] MEDS: Baclofen 10 MG Tablet 20 MG PO (22:38)
[2025-04-18 22:43] LABS: Reflex Lactate? Y
[2025-04-18] MEDS: Gabapentin 800 MG Tablet PO (22:43)
[2025-04-19] VITALS (12 sets, daily range): BP systolic 105–154; BP diastolic 59–80; PULSE 52–80; RESP 16–18; TEMP 36.5–36.9; O2SAT 92–100
[2025-04-19] MEDS: 0.9% Saline Lock 10 ML Syringe IV ×3 (00:01→22:46)
[2025-04-19 00:35] LABS: Lactic Acid < 1.0 mmol/L (0.0-2.0)
[2025-04-19 00:56] LABS: Troponin T High Sens 4 HR 24 ng/L (<=14)
[2025-04-19 01:58] LABS: Hematocrit 20.6 % (37-47); Hemoglobin 6.3 g/dL (12.0-15.0)
[2025-04-19] MEDS: Baclofen 10 MG Tablet 20 MG PO ×3 (05:27→22:10)
[2025-04-19] MEDS: Levothyroxine 50 MCG Tablet PO (05:27)
[2025-04-19] MEDS: Gabapentin 800 MG Tablet PO ×3 (05:27→22:08)
--- NOTE | 2025-04-19 07:10 | PCM.PN.HOSP ---
Reason for Visit Reason for Visit: Diagnoses Anemia, unspecified (04/18/25) Subjective Subjective Patient is a 68-year-old lady presented with fatigue found to be anemic with hemoglobin of 7.3. Objective Data Objective Data Vital Signs: Vital Signs Temp Pulse Resp BP Pulse Ox O2 Del Method 98.4 F 52 L 16 122/64 H 95 Room Air 04/19/25 06:23 04/19/25 06:23 04/19/25 06:23 04/19/25 06:23 04/19/25 06:23 04/19/25 06:23 Oxygen Delivery Method Room Air Weight: 45.7 kg Body Mass Index (BMI) 16.7 Intake & Output: Intake and Output for Last 24 Hours 04/17/25 04/18/25 04/19/25 23:59 23:59 23:59 Intake Total 800 / 800 0 / 0 Balance 800 / 800 0 / 0 Lab / Micro Data 04/19/25 01:33 04/18/25 18:36 Labs: Laboratory Results - last 24 hr 04/18/25 18:36: WBC 8.7, RBC 2.97 L, Hgb 7.3 L, Hct 23.5 L, MCV 79.1 L, MCH 24.6 L, MCHC 31.1 L, RDW Std Deviation 50.4 H, RDW Coeff of David 17.3 H, Plt Count 195, MPV 9.6, Immature Gran % (Auto) 0.500, Neut % (Auto) 79.5 H, Lymph % (Auto) 9.5 L, [place] % (Auto) 9.4, Eos % (Auto) 0.5, Baso % (Auto) 0.6, Absolute Neuts (auto) 7.0, Absolute Lymphs (auto) 0.83, Nucleated RBC % 0.2, Sodium 133, Potassium 3.8, Chloride 97 L, Carbon Dioxide 21.0, Anion Gap 15, BUN 24 H, Creatinine 1.28 H, Estim Creat Clear Calc 29.72 L, Est GFR (MDRD) Non-Af 45 L, BUN/Creatinine Ratio 18.9, Glucose 135 H, Lactic Acid 2.6 H*, Calcium 9.0, Total Bilirubin 0.35, AST 16, ALT 8, Alkaline Phosphatase 88, Troponin T High Sens 30 H, Total Protein 6.4, Albumin 4.1, Globulin 2.4, Albumin/Globulin Ratio 1.7, Lipase 15, Blood Type Cancelled, Antibody Screen Cancelled 04/18/25 18:47: POC Glucose 121 H 04/18/25 19:18: Blood Type O POSITIVE, Antibody Screen NEGATIVE, Crossmatch See Detail 04/18/25 20:29: Iron 16 L, TIBC 372, Iron Saturation 4.0 L, Unsaturated IBC 356, Ferritin 12 L, Troponin T Hi Sens 2 Hr 24 H 04/18/25 23:25: Lactic Acid < 1.0, Troponin T Hi Sens 4Hr 24 H 04/19/25 01:33: Hgb 6.3 L, Hct 20.6 L Physical Exam Narrative GENERAL: cooperative HEENT: Atraumatic; normocephalic EYES; Anicteric, pallor of the conjunctiva NECK; supple, normal thyroid, RESPIRATORY: Diminished to auscultation CARDIOVASCULAR: Regular S1 S2, GI: soft, normoactive bowel sounds, : No Renal angle tenderness; EXTREMITIES: No edema, no clubbing, MUSCULOSKELETAL: no muscle wasting NEURO: Awake; no lateralizing signs. SKIN: No Rash PSYCH; Flat affect Assessment & Plan Assessment/Plan (1) Symptomatic anemia: PLAN: Plan Patient is a 68-year-old lady presented with fatigue found to be anemic with hemoglobin of 7.3. 1. Symptomatic anemia ? Suspected to be secondary to chronic GI bleed. Patient is on apixaban for systemic anticoagulation for A-fib. Patient hemoglobin on admission was 7.3. Patient hemoglobin did drop to 6.3 and order was given for patient to be transfused 1 unit PRBC. 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 Subsequent monitoring with daily H&H ordered consult placed to GI 2. Paroxysmal A-fib ? Rate controlled on systemic anticoagulation with apixaban held given her presentation 3.. Hypertension - Blood pressure controlled, home medications continued with dose adjustment as needed 4. Multiple sclerosis ? Per history patient is on baclofen for muscle relaxation 5. Hypothyroidism ? Patient is on levothyroxine did continue with home dose 6. Peripheral arterial disease ? With history of bilateral carotid artery stenosis, peripheral vascular occlusive disease. Patient was on systemic anticoagulation with apixaban held given about reasons 7. Dyslipidemia ?Patient is on statin therapy, continued at home dose 8. DVT prophylaxis ? Patient is on apixaban held 9. Chronic pain syndrome ? Restarted patient home pain regimen Time spent in the patient's overall evaluation,decision-making process, review of diagnostic data, adjustment of management, discussion with other providers, nursing nursing and ancillary staff involved in patient's care documentation, 52 Minutes Charges/Coding Visit Charges Inpatient E&M: 40497 [facility] Hosp L3
[2025-04-19] MEDS: oxyCODONE 5 MG Tablet 10 MG PO ×4 (08:28→22:08)
[2025-04-19] MEDS: Carvedilol 3.125 MG TABLET PO ×2 (08:29→17:21)
[2025-04-19] MEDS: Docusate Sodium 100 MG Capsule PO ×2 (08:29→22:10)
[2025-04-19] MEDS: Polyethylene Glycol 3350 17 GM PACKET PO ×2 (08:29→22:11)
[2025-04-19 11:33] LABS: Absolute Lymphocyte Count 0.78 X10^3/uL (0.83-4.51); Absolute Neutrophil Count 5.2 X10^3/uL (2.0-7.7); Basophil# 0.03 X10^3/uL; Basophil% 0.4 % (0-1); Eosinophil# 0.13 X10^3/uL; Eosinophils% 1.9 % (0-5); Hematocrit 29.4 % (37-47); Hemoglobin 9.5 g/dL (12.0-15.0); Lymphocyte # 0.78 X10^3/ul (0.83-4.51); Lymphocyte % 11.1 % (19-41); Mean Corp Hgb Conc 32.3 g/dL (32-36); Mean Corpuscular Hgb 27.1 pg (27.0-32.0); Mean Platelet Vol. 9.8 fl (6.2-12.0); Monocyte# 0.79 X10^3/uL; Monocyte% 11.3 % (0-10); NRBC Flagged by Analyzer 0.3 % (0-5); Neutrophil # 5.24 X10^3/uL (2.7-7.7); Neutrophil % 74.9 % (47-70); Platelet Count 133 K/mm3 (150-450); RBC Distribution Width SD 51.9 fl (35.1-43.9)
[2025-04-19 11:53] LABS: Anion Gap 10 (5-15); BUN 20 mg/dL (4-19); BUN/Creat Ratio 16.8 RATIO (10-20); Calcium,Total 8.1 mg/dL (7.6-11.0); Carbon Dioxide 22.1 mmol/L (21.0-32.0); Chloride 106 mmol/L (98-108); Creatinine, Serum 1.17 mg/dL (0.70-1.20); EST Glomerular Filtration Rate 50 (>60); Estimated Creatinine Clearance 32.28 ml/min (50-250); Glucose 111 mg/dL (70-99); Potassium 3.6 mmol/L (3.3-5.1); Sodium Level 137 mmol/L (133-145)
[2025-04-19] MEDS: amLODIPine 2.5 MG Tablet PO (12:52)
[2025-04-19] MEDS: Pantoprazole Sodium 40 MG in 0.9% Normal Saline (100mL MB+) 100 ML 330 MG IV (12:52)
[2025-04-19] MEDS: Cholecalciferol (Vit D3) 125 MCG CAPSULE (5,000 UNITS) PO (12:52)
[2025-04-19] MEDS: Acetaminophen 325 MG Tablet 650 MG PO ×2 (13:03→22:09)
[2025-04-19] MEDS: Atorvastatin Calcium 20 MG Tablet PO (22:10)
[2025-04-20] VITALS (12 sets, daily range): BP systolic 105–151; BP diastolic 64–93; PULSE 51–95; RESP 16–20; TEMP 36.1–36.7; O2SAT 95–100
[2025-04-20] MEDS: Gabapentin 800 MG Tablet PO ×3 (05:34→21:53)
[2025-04-20] MEDS: oxyCODONE 5 MG Tablet 10 MG PO ×2 (05:34→14:58)
[2025-04-20] MEDS: Baclofen 10 MG Tablet 20 MG PO ×3 (05:36→17:22)
[2025-04-20] MEDS: Levothyroxine 50 MCG Tablet PO (05:36)
[2025-04-20 06:16] LABS: Hematocrit 33.7 % (37-47); Hemoglobin 10.6 g/dL (12.0-15.0); Mean Corp Hgb Conc 31.5 g/dL (32-36); Mean Corpuscular Hgb 26.6 pg (27.0-32.0); Mean Corpuscular Volume 84.5 fL (81-99); Mean Platelet Vol. 9.9 fl (6.2-12.0); Platelet Count 146 K/mm3 (150-450); RBC Distribution Width CV 16.9 % (11.6-14.6); RBC Distribution Width SD 52.5 fl (35.1-43.9); Red Blood Count 3.99 M/mm3 (4.2-5.4)
[2025-04-20 06:57] LABS: Anion Gap 12 (5-15); BUN 17 mg/dL (4-19); BUN/Creat Ratio 13.9 RATIO (10-20); Calcium,Total 8.8 mg/dL (7.6-11.0); Carbon Dioxide 22.5 mmol/L (21.0-32.0); Chloride 106 mmol/L (98-108); Creatinine, Serum 1.23 mg/dL (0.70-1.20); EST Glomerular Filtration Rate 47 (>60); Glucose 75 mg/dL (70-99); Magnesium 2.2 mg/dL (1.5-2.2); Phosphorus 3.5 mg/dL (2.7-4.5); Potassium 3.4 mmol/L (3.3-5.1); Sodium Level 140 mmol/L (133-145)
--- NOTE | 2025-04-20 07:28 | PCM.PN.HOSP ---
Reason for Visit Reason for Visit: Diagnoses Anemia, unspecified (04/18/25) Subjective Subjective Patient hemoglobin up to 10.3 following blood transfusion. Consult was placed to GI patient kept n.p.o. awaiting evaluation Objective Data Objective Data Vital Signs: Vital Signs Temp Pulse Resp BP Pulse Ox O2 Del Method 97.0 F L 51 L 18 139/93 H 98 Room Air 04/20/25 05:24 04/20/25 05:24 04/20/25 05:24 04/20/25 05:24 04/20/25 05:24 04/20/25 05:24 Oxygen Delivery Method Room Air Weight: 45.7 kg Body Mass Index (BMI) 16.7 Intake & Output: Intake and Output for Last 24 Hours 04/18/25 04/19/25 04/20/25 23:59 23:59 23:59 Intake Total 800 / 800 2850 / 2850 Output Total 650 / 650 400 / 400 Balance 800 / 800 2200 / 2200 -400 / -400 Lab / Micro Data 04/20/25 05:40 04/20/25 05:40 Labs: Laboratory Results - last 24 hr 04/18/25 19:18: Crossmatch See Detail 04/19/25 11:10: WBC 7.0, RBC 3.50 L, Hgb 9.5 L, Hct 29.4 L, MCV 84.0 D, MCH 27.1, MCHC 32.3, RDW Std Deviation 51.9 H, RDW Coeff of David 17.0 H, Plt Count 133 L, MPV 9.8, Immature Gran % (Auto) 0.400, Neut % (Auto) 74.9 H, Lymph % (Auto) 11.1 L, [place] % (Auto) 11.3 H, Eos % (Auto) 1.9, Baso % (Auto) 0.4, Absolute Neuts (auto) 5.2, Absolute Lymphs (auto) 0.78 L, Nucleated RBC % 0.3, Sodium 137, Potassium 3.6, Chloride 106, Carbon Dioxide 22.1, Anion Gap 10, BUN 20 H, Creatinine 1.17, Estim Creat Clear Calc 32.28 L, Est GFR (MDRD) Non-Af 50 L, BUN/Creatinine Ratio 16.8, Glucose 111 H, Calcium 8.1 04/20/25 05:40: WBC 5.0, RBC 3.99 L, Hgb 10.6 L, Hct 33.7 L, MCV 84.5, MCH 26.6 L, MCHC 31.5 L, RDW Std Deviation 52.5 H, RDW Coeff of David 16.9 H, Plt Count 146 L, MPV 9.9, Sodium 140, Potassium 3.4, Chloride 106, Carbon Dioxide 22.5, Anion Gap 12, BUN 17, Creatinine 1.23 H, Estim Creat Clear Calc 30.70 L, Est GFR (MDRD) Non-Af 47 L, BUN/Creatinine Ratio 13.9, Glucose 75, Calcium 8.8, Phosphorus 3.5, Magnesium 2.2, TSH 5.620 H Physical Exam Narrative GENERAL: cooperative HEENT: Atraumatic; normocephalic EYES; Anicteric, pallor of the conjunctiva NECK; supple, normal thyroid, RESPIRATORY: Diminished to auscultation CARDIOVASCULAR: Regular S1 S2, GI: soft, normoactive bowel sounds, : No Renal angle tenderness; EXTREMITIES: No edema, no clubbing, MUSCULOSKELETAL: no muscle wasting NEURO: Awake; no lateralizing signs. SKIN: No Rash PSYCH; Flat affect Assessment & Plan Assessment/Plan (1) Symptomatic anemia: PLAN: Plan Patient is a 68-year-old lady presented with fatigue found to be anemic with hemoglobin of 7.3. 1. Symptomatic anemia ? Suspected to be secondary to chronic GI bleed exacerbated by the use of systemic anticoagulant?apixaban. Patient is on apixaban for systemic anticoagulation for A-fib. Patient hemoglobin on admission was 7.3. Patient hemoglobin did drop to 6.3 and order was given for patient to be transfused 1 unit PRBC. 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 Subsequent monitoring with daily H&H ordered consult placed to GI ? 04/20/2025; patient hemoglobin up to 10.6. Patient was kept n.p.o. pending GI evaluation 2. Paroxysmal A-fib ? Rate controlled on systemic anticoagulation with apixaban held given her presentation 3.. Hypertension - Blood pressure controlled, home medications continued with dose adjustment as needed 4. Multiple sclerosis ? Per history patient is on baclofen for muscle relaxation 5. Hypothyroidism ? Patient is on levothyroxine did continue with home dose 6. Peripheral arterial disease ? With history of bilateral carotid artery stenosis, peripheral vascular occlusive disease. Patient was on systemic anticoagulation with apixaban held given about reasons 7. Dyslipidemia ?Patient is on statin therapy, continued at home dose 8. DVT prophylaxis ? Patient is on apixaban held 9. Chronic pain syndrome ? Restarted patient home pain regimen Charges/Coding Visit Charges Inpatient E&M: 88050 Subs Hosp L2
[2025-04-20] MEDS: Carvedilol 3.125 MG TABLET PO ×2 (07:44→17:22)
[2025-04-20] MEDS: Pantoprazole Sodium 40 MG in 0.9% Normal Saline (100mL MB+) 100 ML 330 MG IV (09:59)
--- NOTE | 2025-04-20 10:10 | CASEMGMT ---
EVERT CHAVARRIA Assessment: Face to Face with pt for initial transition planning/care coordination assessment. EVERT CHAVARRIA introduced self and role at [facility], pt voices understanding and consents to assessment. Pt is A&O x4 and answers all questions appropriately at this time. Pt lying in bed in no distress. Care providers, pharmacy, and demographics verified/updated. Strata: 4 Admitting Dx: Symptomatic Anemia PCP: Chetan Specialists: Etelvina, Neurologist. Preferred Pharmacy: [facility] Insurance: [employer] Prescription Benefit: yes LNOK: Son, Roberto; Son, Augusto Living Arrangements: Pt lives alone in a 1 level apartment with no steps to enter ADLs: I with ADLs, has a home health aide that comes every sunday for 4 hours to help with cleaning and getting groceries. She does not recall what agency it is through. Pt states they are planning to add a second day, insurance approved up to 10 hrs a week. Pt states she has a Pharmacy Informaticist through [place], her name is Tena. She does not have her phone number. Transportation: Pt HH aide provides transportation. DME: rollator, hosp. bed, shower bench. HHC/SNF: Previously used [facility]. Pt states no concerns with going home at time of dc. EVERT CHAVARRIA discussed having HHC SN and PT, pt agreeable and requested [facility] since she used them in the past. Pt denies wanting a list of providers. Pt states no further concerns/needs. CM to follow. Advised pt to ask CM if any further question/concerns/needs arise, voices understanding. Pt Goal: Home Plan: Home with HHC Julius LOYD CM
--- NOTE | 2025-04-20 10:24 | CASEMGMT ---
EVERT CHAVARRIA called [facility], made referral. Waiting on acceptance.
--- NOTE | 2025-04-20 12:12 | CASEMGMT ---
[facility] called back, able to accept pt. SOC is set for 04/22/25. EVERT CHAVARRIA notified Pt.
[2025-04-20] MEDS: Lactated Ringers 1,000 ML 15 ML IV (12:59)
--- NOTE | 2025-04-20 13:13 | PCM.PRE.AN2 ---
ASA Classification* ASA Classification ASA Classification: 3 (pAF, HTN, MS, Hypothyroid, PAD (hx bilateral carotid artery stenosis)) Assessment & Plan Anesthesia* Anesthesia Assessment Anesthesia Assessment: Discussed sedation and/or anesthesia options, risks, benefits, and alternatives with patient/parents/legal guardian/POA. Questions invited. The patient/parents/legal guardian/POA seems to understand and agrees to proceed with anesthesia plan. Reviewed the physical assessment, medical history, allergy history and patient home medications list prior to surgery/procedure/anesthetic and documented any changes. Performed airway and anesthesia risk assessments. Anesthesia Type Anesthesia Type: General History Source History Obtained from:: Patient and Chart Anesthesia Focused Assessment* Temperature: 97.3 F Pulse Rate: 60 Blood Pressure: 151/89 Respiratory Rate: 18 Pulse Ox: 100 Oxygen Delivery Method: Room Air Airway Assessment Mouth opens: >3 cm Mallampati Score: II Teeth Condition: Intact Neck Range of motion (ROM): Full ROM Focused Labs Anesthesia Preop lab: CBC WBC 5.0 K/mm3 (4.4-11.0) 04/20/25 05:40 04/20/25 RBC 3.99 M/mm3 (4.2-5.4) L 04/20/25 05:40 04/20/25 Hgb 10.6 g/dL (12.0-15.0) L 04/20/25 05:40 04/20/25 Hct 33.7 % (37-47) L 04/20/25 05:40 04/20/25 Plt Count 146 K/mm3 (150-450) L 04/20/25 05:40 04/20/25 CHEMISTRY Potassium 3.4 mmol/L (3.3-5.1) 04/20/25 05:40 04/20/25 Sodium 140 mmol/L (133-145) 04/20/25 05:40 04/20/25 Magnesium 2.2 mg/dL (1.5-2.2) 04/20/25 05:40 04/20/25 Phosphorus 3.5 mg/dL (2.7-4.5) 04/20/25 05:40 04/20/25 BUN 17 mg/dL (4-19) 04/20/25 05:40 04/20/25 Creatinine 1.23 mg/dL (0.70-1.20) H 04/20/25 05:40 04/20/25 Glucose 75 mg/dL (70-99) 04/20/25 05:40 04/20/25 POC Glucose 121 mg/dL (74-106) H 04/18/25 18:47 04/18/25 TSH 5.620 uIU/mL (0.300-4.200) H 04/20/25 05:40 04/20/25 COAG PT 12.9 SECONDS (11.7-14.9) 01/11/25 00:18 01/11/25 Pre-Assessment Diagnosis/Proposed Procedure Planned Operative Procedure(s): EGD 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 - cardiovascular radiologic technologist: 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 - cardiovascular radiologic technologist Hx Hospitalization No 04/15/21 11:49 Any Problems With Anesthesia No 02/24/24 23:50 Cholinesterase deficiency No 02/24/24 23:50 You/Your Family Experience No 02/24/24 23:50 fever (hyperthermia) with Relationship Recent Exposure to Contagious No 02/25/24 11:12 Disease Does patient have nerve No 02/24/24 23:50 stimulator Patient instructed to have device shut off --Does patient have Pacemaker or ICD? When Was Last Pacemaker Check QUESTION #4 FULL TEXT: You/Your Family Experience fever (hyperthermia) with Anesthesia Last Oral Intake Last Oral intake: Last Oral Intake NPO since Meds taken in AM with sips of water? Meds patient instructed to take am of surgery PONV PONV - cardiovascular radiologic technologist: PONV - cardiovascular radiologic technologist Female HX of Motion Sickness HX of N/V After Surgery Non-Smoker Duration of Surgery greater than 60 minutes Number of Risk Factors PONV Score Height & Weight Height & Weight: Anesthesia: Height & Weight Height 5 ft 5 in 04/19/25 10:28 Weight: 45.7 kg 04/19/25 10:28 Body Mass Index (BMI) 16.7 04/18/25 21:50 Respiratory Assessment Respiratory Assessment - cardiovascular radiologic technologist: Respiratory Tract Infection Hx - cardiovascular radiologic technologist Hx Respiratory Tract Infection No 02/24/24 23:50 STOP Sleep Apnea STOP Sleep Apnea - cardiovascular radiologic technologist: STOP Sleep Apnea - cardiovascular radiologic technologist Hx Hypertension Yes 04/18/25 21:53 Hx Sleep Apnea No 04/18/25 21:53 CPAP BIPAP Do you snore loudly (louder No 04/18/25 21:53 than talking or can be heard Do you often feel tired/ No 04/18/25 21:53 fatigued/ sleepy during daytime? Has anyone observed you stop No 04/18/25 21:53 breathing during sleep? STOP Results Negative 04/18/25 21:53 QUESTION #5 FULL TEXT : Do you snore loudly (louder than talking or can be heard through closed doors)? 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 Specify any problems Hx of Preganancy in last 3 No 04/18/25 21:53 Months Nurse Filling Out Transfusion DREDICK 04/18/25 21:53 & Questions: Date: 04/18/25 04/18/25 21:53 Time: 21:54 04/18/25 21:53 Patient unable to answer at this time (ie. confused, unrespo /Reproduction History /Reproductive History - cardiovascular radiologic technologist: /Reproductive Hx- cardiovascular radiologic technologist Hx Now Gestational Age (in weeks): EDC: Hx Hx Para Hx Section SAB No 02/24/24 23:50 Active Medications Active Medications: Current Medications Generic Name Dose Route Start Last Admin Trade Name Freq PRN Reason Stop Dose Admin Acetaminophen 650 mg 04/19/25 07:19 04/19/25 22:09 Acetaminophen 325 Mg Tablet PO 650 mg Q6H PRN PRN Administration Pain 1-10 Or Fever >100.7 Amlodipine Besylate 2.5 mg 04/19/25 10:00 04/19/25 12:52 Amlodipine 2.5 Mg Tablet PO 2.5 mg DAILY VIMAL Administration Protocol Atorvastatin Calcium 20 mg 04/18/25 22:00 04/19/25 22:10 Atorvastatin Calcium 20 Mg Tablet PO 20 mg QHS VIMAL Administration Baclofen 20 mg 04/19/25 00:00 04/20/25 05:36 Baclofen 10 Mg Tablet PO 20 mg Q6 VIMAL Administration Carvedilol 3.125 mg 04/19/25 08:00 04/20/25 07:44 Carvedilol 3.125 Mg Tablet PO 3.125 mg BIDCM VIMAL Administration Cholecalciferol 125 mcg 04/19/25 10:00 04/19/25 12:52 Cholecalciferol (Vit D3) 125 Mcg Capsule (5,000 Units) PO 125 mcg DAILY VIMAL Administration Docusate Sodium 100 mg 04/18/25 22:00 04/19/25 22:10 Docusate Sodium 100 Mg Capsule PO 100 mg BID VIMAL Administration Gabapentin 800 mg 04/18/25 22:00 04/20/25 05:34 Gabapentin 800 Mg Tablet PO 800 mg TID VIMAL Administration Guaifenesin 1 tablet 04/19/25 07:31 Guaifenesin/D-Methorphan Tab.Sr.12h PO Q12H PRN cough/congest Hydromorphone HCl 0.5 - 1 mg 04/19/25 07:19 Hydromorphone 1 Mg/Ml Syringe IV Q3H PRN PRN Pain Score 6-10 Sodium Chloride 250 mls @ 15 mls/hr 04/18/25 21:41 IV .[id number] PRN Saline Flush Sodium Chloride 250 mls @ 15 mls/hr 04/18/25 21:41 IV .[id number] PRN Additional IVPB Infusion Pantoprazole Sodium 40 mg/ 100 mls @ 330 mls/hr 04/18/25 21:57 04/20/25 09:59 Sodium Chloride IV 330 mls/hr Q24 VIMAL Administration Lactated Ringer's 1,000 mls @ 15 mls/hr 04/20/25 13:00 04/20/25 12:59 IV 15 mls/hr .Q48H VIMAL Administration Ipratropium [place] 2 spray 04/19/25 07:17 Ipratropium [place] 0.06% Nasal Brady NASAL TID PRN allergy symptoms Levothyroxine Sodium 50 mcg 04/19/25 06:00 04/20/25 05:36 Levothyroxine 50 Mcg Tablet PO 50 mcg DAILY@0600 VIMAL Administration Nutritional Formula (Lactose Free) 120 ml 04/19/25 08:00 04/19/25 17:22 Ensure Clear 120 Ml Liquid PO Not Given TIDCM VIMAL Oxycodone HCl 10 mg 04/19/25 07:19 04/20/25 05:34 Oxycodone 5 Mg Tablet PO 10 mg Q4H PRN PRN Administration Pain Score 4-10 Polyethylene Glycol 17 gm 04/18/25 22:00 04/19/25 22:11 Polyethylene Glycol 3350 17 Gm Packet PO 17 gm BID VIMAL Administration Sodium Chloride 10 - 40 ml 04/18/25 21:41 04/19/25 22:46 0.9% Saline Lock 10 Ml Syringe IV 10 ml UD PRN Administration SALINE FLUSH PFSH Medical History Hypertensive emergency NSTEMI, initial episode of care Emphysema of lung Smoking greater than 30 pack years New onset atrial fibrillation [place] (dyspnea on exertion) Atherosclerotic heart disease of [place] coronary artery without angina pectoris Cardiac murmur Elevated troponin Mitral stenosis Chronic low back pain Diastolic hypertension Chest pain Nicotine dependence, cigarettes, uncomplicated Elevated troponin Depression On home oxygen therapy Atrial fibrillation PAF (paroxysmal atrial fibrillation) Atrial fibrillation Hypothyroidism Smoker Coronary artery disease TIA (transient ischemic attack) Influenza A Nonsustained paroxysmal supraventricular tachycardia Multiple sclerosis Nonobstructive atherosclerosis of coronary artery Peripheral vascular occlusive disease Essential (primary) hypertension Bilateral carotid artery stenosis History of transient ischemic attack (TIA) Fatty liver Thrombocytopenia GERD (gastroesophageal reflux disease) Psoriatic arthritis Psoriasis Osteoporosis Osteoarthritis Goiter Multiple sclerosis HLD (hyperlipidemia) Angina pectoris Chronic pain syndrome Home Medications ?Medication ?Instructions ?Recorded ?Last Taken ?Type gabapentin 800 mg tablet 800 mg PO TID MS 07/16/18 03/19/25 History baclofen 20 mg tablet 20 mg PO Q6H MS 08/11/21 03/19/25 History levothyroxine 50 mcg tablet 50 mcg PO DAILY thyroid 08/11/21 03/19/25 History oxycodone 10 mg tablet 10 mg PO Q6H PRN pain 05/24/23 12/01/23 History dextromethorphan-guaifenesin ER 60 1 tab PO Q12H PRN cough/congest 02/19/24 03/19/25 History mg-1,200 mg tab,extend release,12hr (Mucinex DM) famotidine 40 mg tablet 40 mg PO QDAY PRN indigestion 11/24/24 03/19/25 History lisinopril 10 mg tablet 10 mg PO BID blood pressure 11/24/24 03/19/25 History aspirin 81 mg tablet,delayed 81 mg PO BREAKFAST heart health 12/11/24 03/19/25 Rx release #30 tabs amlodipine 5 mg tablet (Norvasc) 2.5 mg (1/2 x 5 mg) PO QDAY bp #90 01/13/25 03/19/25 Rx tabs carvedilol 3.125 mg tablet 3.125 mg PO BIDCM heart #180 tabs 03/03/25 03/19/25 Rx apixaban 5 mg tablet (Eliquis) 5 mg PO Q12H anticoagulation #180 03/09/25 03/19/25 Rx tabs cholecalciferol (vitamin D3) 125 125 mcg PO DAILY supplement 04/18/25 Unknown History mcg (5,000 unit) capsule docusate sodium 100 mg capsule 100 mg PO BID stool softener 7 04/18/25 Unknown Rx (Colace) days #14 caps doxepin 10 mg/mL oral concentrate 5 - 10 mg PO QHS 04/18/25 Unknown History ipratropium bromide 42 mcg (0.06 2 spray intranasal TID PRN allergy 04/18/25 Unknown History %) nasal spray symptoms naloxegol 25 mg tablet (Movantik) 25 mg PO DAILY 30 days #30 tabs 04/18/25 Unknown Rx rosuvastatin 10 mg tablet 10 mg PO QHS hld 04/18/25 Unknown History Allergy/AdvReac Type Severity Reaction Status Date / Time colestipol (From Colestid) Allergy Mild unknown Verified 04/18/25 18:19 pregabalin (From Lyrica) Allergy Mild Hives Verified 04/18/25 18:19 amitriptyline Allergy Rash Verified 04/18/25 18:19 temazepam (From Restoril) AdvReac Mild Nausea/Vom/ Verified 04/18/25 18:19 Diarrhea Antihistamines - Alkylamine AdvReac Nausea/Vom/ Verified 04/18/25 18:19 Diarrhea Antihistamines - Ethanolamine AdvReac Nausea/Vom/ Verified 04/18/25 18:19 Diarrhea Antihistamines - AdvReac Nausea/Vom/ Verified 04/18/25 18:19 Ethylenediamine Diarrhea Antihistamines - Piperazine AdvReac Nausea/Vom/ Verified 04/18/25 18:19 Diarrhea Antihistamines - Piperidine AdvReac Nausea/Vom/ Verified 04/18/25 18:19 Diarrhea aspirin AdvReac I'M ON Verified 04/18/25 18:19 BLOOD THINNERS codeine AdvReac Nausea Verified 04/18/25 18:19 Corticosteroids AdvReac Upset Verified 04/18/25 18:19 (Glucocorticoids) Stomach morphine AdvReac Nausea Verified 04/18/25 18:19 Ozakuuu-OEO-OiX Reductase AdvReac Nausea Verified 04/18/25 18:19 Inhibitor (Skkmdui-Nxh-Afl Reductase Inhibitor) Family History Mother Cancer CAD (coronary artery disease) Brain tumor Grandfather CVA (cerebral vascular accident) Father CAD (coronary artery disease) Ruptured abdominal aortic aneurysm (AAA) Sister Brain aneurysm Surgical History History of coronary artery stent placement History of appendectomy History of cholecystectomy History of angioplasty of peripheral vessel (07/11/19) Stenosis of left subclavian artery History of left heart catheterization (01/25/15) S/P coil embolization of cerebral aneurysm History of angioplasty of peripheral vessel History of right-sided carotid endarterectomy History of left-sided carotid endarterectomy History of partial thyroidectomy (11/30/05) History of hemorrhoidectomy History of hysterectomy History of section Brain aneurysm Fracture of right lower leg S/P insertion of iliac artery stent History of left breast biopsy H/O hemorrhoidectomy S/P hysterectomy H/O: S/P thyroidectomy Social History household members: none housing: apartment Smoking Status: Light Smoker (<10/day) alcohol intake: never caffeine: Yes Type: coffee and tea Review of Systems (Anesthesia) ROS Narrative System reviewed and no additional complaints, except as documented. Physical Exam Const alert, oriented x3 and average body habitus Resp normal respiratory effort, normal air movement and clear to auscultation bilaterally Cardio regular rate, regular rhythm, no murmurs and diaphoretic
--- NOTE | 2025-04-20 13:18 | PCM.PN.BLA ---
Progress Note Patient has been n.p.o. for upper endoscopy. She came in with a hemoglobin of 6.8. She did receive blood transfusions hemoglobin back up to 9. Physical Exam Const alert, oriented x3 and average body habitus Resp normal respiratory effort, normal air movement and clear to auscultation bilaterally Cardio regular rate, regular rhythm, no murmurs and diaphoretic Assessment & Plan Assessment/Plan (1) Symptomatic anemia: PLAN: Plan Patient is a 69-year-old lady presented with fatigue found to be anemic with hemoglobin of 7.3. She is on anticoagulation with Eliquis for atrial fibrillation. Hemoglobin is up after blood transfusion. She was explained alternatives, risk and benefits include not withstanding bleeding, infection, sepsis, perforation, need for more surgery . She will have an ASA of 3. Visit Charges Inpatient E&M: 59904 Subs Hosp L2
--- NOTE | 2025-04-20 13:47 | OP.EGD_ITS ---
Patient Name: Angélica Yo Procedure Date: 04/20/2025 1:24 PM Date of : 1955 Age: 69 Procedure: Upper GI endoscopy Indications: Iron deficiency anemia, Melena, Recent gastrointestinal bleeding, Suspected upper gastrointestinal bleeding in patient with chronic blood loss Providers: Kevin Gonzalez DO Referring MD: Sachin Murillo Medicines: Monitored Anesthesia Care Patient Profile: This is a 69 year old female. Refer to note in patient chart for documentation of history and physical. Patient has symptoms. Complications: No immediate complications. Procedure: Pre-Anesthesia Assessment: - Prior to the procedure, a History and Physical was performed, and patient medications and allergies were reviewed. The patient is competent. The risks and benefits of the procedure and the sedation options and risks were discussed with the patient. All questions were answered and informed consent was obtained. Patient identification and proposed procedure were verified by the physician in the pre-procedure area. Mental Status Examination: alert and oriented. Airway Examination: normal oropharyngeal airway and neck mobility. Respiratory Examination: clear to auscultation. CV Examination: normal. Prophylactic Antibiotics: The patient does not require prophylactic antibiotics. Prior Anticoagulants: The patient has taken no anticoagulant or antiplatelet agents except for NSAID medication. ASA Grade Assessment: II - A patient with mild systemic disease. After reviewing the risks and benefits, the patient was deemed in satisfactory condition to undergo the procedure. The anesthesia plan was to use monitored anesthesia care (MAC). Immediately prior to administration of medications, the patient was re-assessed for adequacy to receive sedatives. The heart rate, respiratory rate, oxygen saturations, blood pressure, adequacy of pulmonary ventilation, and response to care were monitored throughout the procedure. The physical status of the patient was re-assessed after the procedure. After obtaining informed consent, the endoscope was passed under direct vision. Throughout the procedure, the patient's blood pressure, pulse, and oxygen saturations were monitored continuously. The Endoscope was introduced through the mouth, and advanced to the fourth part of the duodenum. Small bowel enteroscopy was deemed necessary. The upper GI endoscopy was accomplished without difficulty. The patient tolerated the procedure well. Scope In: 1:36:28 PM Scope Out: 1:39:49 PM Total Procedure Duration Time 0 hours 3 minutes 21 seconds Findings: The examined esophagus was normal. No gross lesions were noted in the entire examined stomach. Multiple 4 mm angiodysplastic lesions without bleeding were found in the duodenal bulb, in the second portion of the duodenum and in the third portion of the duodenum. Coagulation for bleeding prevention using heater probe was successful. Estimated blood loss was minimal. Impression: - Normal esophagus. - No gross lesions in the entire stomach. 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 Treated with a heater probe. - No specimens collected. Recommendation: - Return patient to [facility] for ongoing care. - Full liquid diet. - Continue present medications. Procedure Code(s): --- Professional --- 71345, Small intestinal endoscopy, enteroscopy beyond second portion of duodenum, not including ileum; with control of bleeding (eg, injection, bipolar cautery, unipolar cautery, laser, heater probe, stapler, plasma house worker) CPT copyright 2021 [employer]. All rights reserved. The codes documented in this report are preliminary and upon bolt machine operator review may be revised to meet current compliance requirements. Kevin Gonzalez DO 04/20/2025 1:47:11 PM This report has been signed electronically. Number of Addenda: 0 Note Initiated On: 04/20/2025 1:24 PM
--- NOTE | 2025-04-20 13:48 | OP.CCLET_ITS ---
04/20/2025 Daron Benton [address] [place] [address] Re : Upper GI endoscopy procedure for Angélica Yo Dear Dr. Benton This procedure was performed on Sunday, April 20, 2025. My impressions and recommendations are as follows: Impressions : - Normal esophagus. - No gross lesions in the entire stomach. 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 Treated with a heater probe. - No specimens collected. Recommendations : - Return patient to hospital [facility] for ongoing care. - Full liquid diet. - Continue present medications. My findings are described in the full procedure note, which is enclosed. If I can be of further assistance, please feel free to contact me at . Sincerely, Kevin Gonzalez, 04/20/2025 1:47:11 PM This report has been signed electronically.
--- NOTE | 2025-04-20 13:52 | PCM.POST.ANE ---
Anesthesia: Postop Eval I Current Vital Signs Temperature: 97.5 F Pulse Rate: 95 Blood Pressure: 141/86 Respiratory Rate: 20 Pulse Ox: 95 Oxygen Delivery Method: Room Air Assessment Airway patent: Yes Spontaneous unlabored respirations: Yes Mental status: Awake nausea: No Vomiting: No Anesthesia Complication: No Fluid Hydration Crystalloid volume administer (ml): 500 Total IV fluid infused: 500 Progress Note Anesthesia document: Postop Eval 1 completed: Yes
[2025-04-20] MEDS: Docusate Sodium 100 MG Capsule PO (14:48)
[2025-04-20] MEDS: Polyethylene Glycol 3350 17 GM PACKET PO (14:49)
[2025-04-20] MEDS: amLODIPine 2.5 MG Tablet PO (14:49)
[2025-04-20] MEDS: Cholecalciferol (Vit D3) 125 MCG CAPSULE (5,000 UNITS) PO (14:49)
[2025-04-20] MEDS: Acetaminophen 325 MG Tablet 650 MG PO (14:58)
[2025-04-20] MEDS: Ensure Clear 120 ML Liquid PO ×2 (15:00→17:21)
--- NOTE | 2025-04-20 16:08 | POSTOPAN2_ITS ---
Anesthesia Postop Eval I Sum Postop Eval Completion status Anesthesia document: Postop Eval 1 completed: Yes Anesthesia Postop Eval I Summary Anesthesia Postop Eval I Summary: Anesthesia Postop Eval I: Assessment Summary Airway patent Yes 04/20/25 13:53 PATIENT PLACEMENT COORDINATOR.[email or web address] Spontaneous unlabored Yes 04/20/25 13:53 PATIENT PLACEMENT COORDINATOR.JDEF respirations Mental status Awake 04/20/25 13:53 PATIENT PLACEMENT COORDINATOR.JDEF nausea No 04/20/25 13:53 PATIENT PLACEMENT COORDINATOR.JDEF Vomiting No 04/20/25 13:53 PATIENT PLACEMENT COORDINATOR.JDEF Anesthesia Postop Eval I: Fluid Summary Crystalloid volume administer 500 04/20/25 13:53 PATIENT PLACEMENT COORDINATOR.JDEF (ml) Colloids volume administered ( ml) Blood Product volume administered (ml) Total IV fluid infused 500 04/20/25 13:53 PATIENT PLACEMENT COORDINATOR.JDEF Anesthesia Postop Eval I: Summary Notes Anesthesia Complication No 04/20/25 13:53 PATIENT PLACEMENT COORDINATOR.JDEF Anesthesia Complication Comment: Post-operative progress note Anesthesia: Postop Eval II Evaluation Mental status: Awake Pain Level: 0 nausea: No Vomiting: No Complications Anesthesia Complication: No
--- NOTE | 2025-04-20 16:08 | PCM.POSTANE2 ---
Anesthesia Postop Eval I Sum Postop Eval Completion status Anesthesia document: Postop Eval 1 completed: Yes Anesthesia Postop Eval I Summary Anesthesia Postop Eval I Summary: Anesthesia Postop Eval I: Assessment Summary Airway patent Yes 04/20/25 13:53 POWERHOUSE [email or web address] Spontaneous unlabored Yes 04/20/25 13:53 POWERHOUSE HELPER.[email or web address] respirations Mental status Awake 04/20/25 13:53 POWERHOUSE [email or web address].JDEF nausea No 04/20/25 13:53 POWERHOUSE HELPER.JDEF Vomiting No 04/20/25 13:53 POWERHOUSE HELPER.[email or web address] Anesthesia Postop Eval I: Fluid Summary Crystalloid volume administer 500 04/20/25 13:53 POWERHOUSE [email or web address].JDEF (ml) Colloids volume administered ( ml) Blood Product volume administered (ml) Total IV fluid infused 500 04/20/25 13:53 POWERHOUSE [email or web address].[email or web address] Anesthesia Postop Eval I: Summary Notes Anesthesia Complication No 04/20/25 13:53 POWERHOUSE [email or web address].JDEF Anesthesia Complication Comment: Post-operative progress note Anesthesia: Postop Eval II Evaluation Mental status: Awake Pain Level: 0 nausea: No Vomiting: No Complications Anesthesia Complication: No
--- NOTE | 2025-04-20 16:14 | CHAPLAIN ---
Type of Pastoral Visit _x__ Initial Visit ___ Follow-up Visit ___ On-call Visit ___ General Patient Visit ___ Spiritual Assessment ___ Family Conference ___ Bereavement ___ Rapid Response ___ Code Blue ___ Other (describe below) Pastoral Care Referral From _x__ Patient ___ Family ___ Nurse ___ Physician ___ Patient Access Specialist ___ Congressional Representative ___ Other (describe below) Sacrament/Intervention _x__ Active listening ___ Anointing ___ Evangelical ___ Bereavement ___ Communion ___ Kaci exploration ___ ___ Life review _x__ Prayer ___ Reconciliation ___ Sacrament of Sick _x__ Supportive presence ___ Wedding ___ Other (describe below) Pastoral Comments patient gives some update on her health and that of a friend that is going through something very similar as she is experiencing; pt accepts what is happening per her responses to questions; pt asks for a prayer for that is what I need
[2025-04-20] MEDS: Bisacodyl 5 MG Tablet 20 MG PO (19:36)
[2025-04-20] MEDS: Polyethylene Glycol 3350 BOWEL PREP PO (20:04)
[2025-04-20] MEDS: Atorvastatin Calcium 20 MG Tablet PO (21:53)
[2025-04-21] VITALS (12 sets, daily range): BP systolic 106–177; BP diastolic 61–97; PULSE 50–77; RESP 15–18; TEMP 36.1–37.2; O2SAT 93–100; BMI 16.7
--- NOTE | 2025-04-21 00:41 | PCM.HOSP.N ---
Hospitalist Note Patient with unwitnessed mechanical fall, notes she bumped her head. Denies any other injury, nausea, emesis, marked headache. She is on NOAC. CT head requested to be cautious.
--- NOTE | 2025-04-21 00:54 | CT_ITS ---
PROCEDURE: BRAIN/HEAD WITHOUT CONTRAST 04/21/2025 REASON FOR EXAM: HIT HEAD AND ON ELEQUIS TECHNIQUE: Head CT without intravenous contrast. Coronal and Sagittal reconstruction series were provided. One or more dose reduction techniques were used (e.g., Automated exposure control, adjustment of the mA and/or kV according to patient size, use of iterative reconstruction technique. RADIATION DOSE SUMMARY: CTDlvol: 44.9 mGy DLP: 782 mGycm COMPARISON: CT scan on 04/11/2025. FINDINGS: Unchanged prominent artifact secondary to suprasellar coil embolization. 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 Unchanged small subcortical chronic infarct in the left parietal lobe. Mild diffuse cortical atrophy, commensurate with the patient's age. Scattered hypodense foci in the periventricular and subcortical white matter suggestive of chronic ischemic white matter disease. Normal size of the ventricles and extra-axial spaces for the patient's age. Normal basal ganglia and thalami. Normal brainstem. Normal cerebellum. There is no demonstrated extra-axial, intraparenchymal, or intraventricular hemorrhage. There are no findings of an acute ischemic infarction. Normal calvarium. There is no demonstrated fracture. Normal soft tissue structures. Normal visualized paranasal sinuses. CT/Brain/Head without Contrast IMPRESSION: No CT evidence for acute brain abnormality. Reading Location: [id number]
[2025-04-21] MEDS: Acetaminophen 325 MG Tablet 650 MG PO ×2 (01:18→10:19)
[2025-04-21] MEDS: HYDROmorphone 1 MG/ML Syringe IV ×2 (01:36→05:35)
[2025-04-21 01:57] LABS: Bedside Glucose 109 mg/dL (74-106)
[2025-04-21 04:54] LABS: Hematocrit 31.7 % (37-47); Hemoglobin 10.1 g/dL (12.0-15.0); Mean Corp Hgb Conc 31.9 g/dL (32-36); Mean Corpuscular Hgb 26.5 pg (27.0-32.0); Mean Corpuscular Volume 83.2 fL (81-99); Mean Platelet Vol. 9.4 fl (6.2-12.0); Platelet Count 174 K/mm3 (150-450); RBC Distribution Width CV 17.2 % (11.6-14.6); RBC Distribution Width SD 51.9 fl (35.1-43.9); Red Blood Count 3.81 M/mm3 (4.2-5.4); White Blood Count 5.3 K/mm3 (4.4-11.0)
[2025-04-21 05:19] LABS: Anion Gap 9 (5-15); BUN 12 mg/dL (4-19); BUN/Creat Ratio 9.9 RATIO (10-20); Calcium,Total 8.7 mg/dL (7.6-11.0); Carbon Dioxide 24.7 mmol/L (21.0-32.0); Chloride 107 mmol/L (98-108); Creatinine, Serum 1.21 mg/dL (0.70-1.20); EST Glomerular Filtration Rate 48 (>60); Estimated Creatinine Clearance 31.21 ml/min (50-250); Glucose 85 mg/dL (70-99); Potassium 3.1 mmol/L (3.3-5.1); Sodium Level 141 mmol/L (133-145)
--- NOTE | 2025-04-21 06:38 | ED.RN ---
tried to contact both of pt's sons this am to give them an update on their mothers status and they did not coal picker. I did not leave a message due to possible HIPPA violation.
--- NOTE | 2025-04-21 07:27 | PCM.PN.HOSP ---
Reason for Visit Reason for Visit: Diagnoses Anemia, unspecified (04/18/25) Subjective Subjective Patient underwent EGD by Dr. Harkins results as below Objective Data Objective Data Vital Signs: Vital Signs Temp Pulse Resp BP Pulse Ox O2 Del Method 97.6 F L 60 18 160/79 H 100 Room Air 04/21/25 05:30 04/21/25 05:30 04/21/25 05:30 04/21/25 05:30 04/21/25 05:30 04/21/25 05:30 Oxygen Delivery Method Room Air Weight: 45.7 kg Body Mass Index (BMI) 16.7 Intake & Output: Intake and Output for Last 24 Hours 04/19/25 04/20/25 04/21/25 23:59 23:59 23:59 Intake Total 2850 / 2850 175 / 175 1000 / 1000 Output Total 650 / 650 400 / 400 800 / 800 Balance 2200 / 2200 -225 / -225 200 / 200 Lab / Micro Data 04/21/25 04:36 04/21/25 04:36 Labs: Laboratory Results - last 24 hr 04/21/25 01:15: POC Glucose 109 H 04/21/25 04:36: WBC 5.3, RBC 3.81 L, Hgb 10.1 L, Hct 31.7 L, MCV 83.2, MCH 26.5 L, MCHC 31.9 L, RDW Std Deviation 51.9 H, RDW Coeff of David 17.2 H, Plt Count 174, MPV 9.4, Sodium 141, Potassium 3.1 L, Chloride 107, Carbon Dioxide 24.7, Anion Gap 9, BUN 12, Creatinine 1.21 H, Estim Creat Clear Calc 31.21 L, Est GFR (MDRD) Non-Af 48 L, BUN/Creatinine Ratio 9.9 L, Glucose 85, Calcium 8.7 Radiography Diagnostic Testing: Radiology Impression Brain CT 04/21/25 00:54 IMPRESSION: No CT evidence for acute brain abnormality. Reading Location: [place] [id number] Physical Exam Narrative GENERAL: cooperative HEENT: Atraumatic; normocephalic EYES; Anicteric, pallor of the conjunctiva NECK; supple, normal thyroid, RESPIRATORY: Diminished to auscultation CARDIOVASCULAR: Regular S1 S2, GI: soft, normoactive bowel sounds, : No Renal angle tenderness; EXTREMITIES: No edema, no clubbing, MUSCULOSKELETAL: no muscle wasting NEURO: Awake; no lateralizing signs. SKIN: No Rash PSYCH; Flat affect Assessment & Plan Assessment/Plan (1) Symptomatic anemia: PLAN: Plan Patient is a 68-year-old lady presented with fatigue found to be anemic with hemoglobin of 7.3. 1. Symptomatic anemia ? Suspected to be secondary to chronic GI bleed exacerbated by the use of systemic anticoagulant?apixaban. Patient is on apixaban for systemic anticoagulation for A-fib. Patient hemoglobin on admission was 7.3. Patient hemoglobin did drop to 6.3 and order was given for patient to be transfused 1 unit PRBC. 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 Subsequent monitoring with daily H&H ordered consult placed to GI ? 04/20/2025; patient hemoglobin up to 10.6. Patient was kept n.p.o. pending GI evaluation ? 04/21/2025; patient underwent EGD the day prior findings and recommendations as below ?Impressions : - Normal esophagus. - No gross lesions in the entire stomach. 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 Treated with a heater probe. - No specimens collected. Recommendations : - [facility] to [facility] for [facility] care. - Full liquid diet. - Continue present medications. -Plan is for patient to complete her evaluation with a colonoscopy. Patient is however refusing to drink the prep she also refused NG 2. Paroxysmal A-fib ? Rate controlled on systemic anticoagulation with apixaban held given her presentation 3.. Hypertension - Blood pressure controlled, home medications continued with dose adjustment as needed 4. Multiple sclerosis ? Per history patient is on baclofen for muscle relaxation 5. Hypothyroidism ? Patient is on levothyroxine did continue with home dose 6. Peripheral arterial disease ? With history of bilateral carotid artery stenosis, peripheral vascular occlusive disease. Patient was on systemic anticoagulation with apixaban held given about reasons 7. Dyslipidemia ?Patient is on statin therapy, continued at home dose 8. DVT prophylaxis ? Patient is on apixaban held 9. Chronic pain syndrome ? Restarted patient home pain regimen Charges/Coding Visit Charges Inpatient E&M: 38390 Subs Hosp L2
[2025-04-21] MEDS: Carvedilol 3.125 MG TABLET PO ×2 (09:01→17:48)
[2025-04-21] MEDS: amLODIPine 2.5 MG Tablet PO (09:01)
[2025-04-21] MEDS: Cholecalciferol (Vit D3) 125 MCG CAPSULE (5,000 UNITS) PO (09:02)
[2025-04-21] MEDS: Docusate Sodium 100 MG Capsule PO (09:02)
[2025-04-21] MEDS: Pantoprazole Sodium 40 MG in 0.9% Normal Saline (100mL MB+) 100 ML 330 MG IV (10:19)
[2025-04-21] MEDS: Potassium Chloride Oral Soln 20 MEQ/15 ML UDC 40 MEQ PO (10:20)
[2025-04-21] MEDS: oxyCODONE 5 MG Tablet 10 MG PO ×3 (10:23→22:26)
--- NOTE | 2025-04-21 10:51 | CASEMGMT ---
EVERT CHAVARRIA notified pt will be here at least another day. Called [facility] to provide update as SOC was supposed to be tomorrow. New SOC is 04/23/25.
[2025-04-21] MEDS: Lactated Ringers 1,000 ML 15 ML IV (15:37)
--- NOTE | 2025-04-21 15:49 | PCM.PRE.AN2 ---
ASA Classification* ASA Classification ASA Classification: 3 Assessment & Plan Anesthesia* Anesthesia Assessment Anesthesia Assessment: Discussed sedation and/or anesthesia options, risks, benefits, and alternatives with patient/parents/legal guardian/POA. Questions invited. The patient/parents/legal guardian/POA seems to understand and agrees to proceed with anesthesia plan. Reviewed the physical assessment, medical history, allergy history and patient home medications list prior to surgery/procedure/anesthetic and documented any changes. Performed airway and anesthesia risk assessments. Anesthesia Type Anesthesia Type: MAC History Source History Obtained from:: Patient and Chart Anesthesia Focused Assessment* Temperature: 97.9 F Pulse Rate: 50 Blood Pressure: 137/68 Respiratory Rate: 16 Pulse Ox: 100 Oxygen Delivery Method: Room Air Airway Assessment Mouth opens: >3 cm Mallampati Score: II Teeth Condition: Dentures (Patient has upper and lower dentures. They are out.) Neck Range of motion (ROM): Full ROM Focused Labs Anesthesia Preop lab: CBC WBC 5.3 K/mm3 (4.4-11.0) 04/21/25 04:36 04/21/25 RBC 3.81 M/mm3 (4.2-5.4) L 04/21/25 04:36 04/21/25 Hgb 10.1 g/dL (12.0-15.0) L 04/21/25 04:36 04/21/25 Hct 31.7 % (37-47) L 04/21/25 04:36 04/21/25 Plt Count 174 K/mm3 (150-450) 04/21/25 04:36 04/21/25 CHEMISTRY Potassium 3.1 mmol/L (3.3-5.1) L 04/21/25 04:36 04/21/25 Sodium 141 mmol/L (133-145) 04/21/25 04:36 04/21/25 Magnesium 2.2 mg/dL (1.5-2.2) 04/20/25 05:40 04/20/25 Phosphorus 3.5 mg/dL (2.7-4.5) 04/20/25 05:40 04/20/25 BUN 12 mg/dL (4-19) 04/21/25 04:36 04/21/25 Creatinine 1.21 mg/dL (0.70-1.20) H 04/21/25 04:36 04/21/25 Glucose 85 mg/dL (70-99) 04/21/25 04:36 04/21/25 POC Glucose 109 mg/dL (74-106) H 04/21/25 01:15 04/21/25 TSH 5.620 uIU/mL (0.300-4.200) H 04/20/25 05:40 04/20/25 COAG PT 12.9 SECONDS (11.7-14.9) 01/11/25 00:18 01/11/25 Pre-Assessment Diagnosis/Proposed Procedure Planned Operative Procedure(s): EGD 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 - edge burnisher uppers: 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 - edge burnisher uppers Hx Hospitalization No 04/15/21 11:49 Any Problems With Anesthesia No 02/24/24 23:50 Cholinesterase deficiency No 02/24/24 23:50 You/Your Family Experience No 02/24/24 23:50 fever (hyperthermia) with Relationship Recent Exposure to Contagious No 02/25/24 11:12 Disease Does patient have nerve No 02/24/24 23:50 stimulator Patient instructed to have device shut off --Does patient have Pacemaker No 04/21/25 15:30 or ICD? When Was Last Pacemaker Check QUESTION #4 FULL TEXT: You/Your Family Experience fever (hyperthermia) with Anesthesia Last Oral Intake Last Oral intake: Last Oral Intake NPO since 00:01 04/21/25 15:30 Meds taken in AM with sips of Yes 04/21/25 15:30 water? Meds patient instructed to see 04/21/25 15:30 take am of surgery PONV PONV - edge burnisher uppers: PONV - edge burnisher uppers Female HX of Motion Sickness HX of N/V After Surgery Non-Smoker Duration of Surgery greater than 60 minutes Number of Risk Factors PONV Score Height & Weight Height & Weight: Anesthesia: Height & Weight Height 5 ft 5 in 04/21/25 15:30 Weight: 45.7 kg 04/21/25 15:30 Body Mass Index (BMI) 16.7 04/21/25 15:30 Respiratory Assessment Respiratory Assessment - edge burnisher uppers: Respiratory Tract Infection Hx - edge burnisher uppers Hx Respiratory Tract Infection No 02/24/24 23:50 STOP Sleep Apnea STOP Sleep Apnea - edge burnisher uppers: STOP Sleep Apnea - edge burnisher uppers Hx Hypertension Yes 04/18/25 21:53 Hx Sleep Apnea No 04/18/25 21:53 CPAP BIPAP Do you snore loudly (louder No 04/18/25 21:53 than talking or can be heard Do you often feel tired/ No 04/18/25 21:53 fatigued/ sleepy during daytime? Has anyone observed you stop No 04/18/25 21:53 breathing during sleep? STOP Results Negative 04/20/25 13:46 QUESTION #5 FULL TEXT : Do you snore loudly (louder than talking or can be heard through closed doors)? 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 Specify any problems Hx of Preganancy in last 3 No 04/18/25 21:53 Months Nurse Filling Out Transfusion DREDICK 04/18/25 21:53 & Questions: Date: 04/18/25 04/18/25 21:53 Time: 21:54 04/18/25 21:53 Patient unable to answer at this time (ie. confused, unrespo /Reproduction History /Reproductive History - edge burnisher uppers: /Reproductive Hx- edge burnisher uppers Hx Now Gestational Age (in weeks): EDC: Hx Hx Para Hx Section SAB No 02/24/24 23:50 Active Medications Active Medications: Current Medications Generic Name Dose Route Start Last Admin Trade Name Freq PRN Reason Stop Dose Admin Acetaminophen 650 mg 04/19/25 07:19 04/21/25 10:19 Acetaminophen 325 Mg Tablet PO 650 mg Q6H PRN PRN Administration Pain 1-10 Or Fever >100.7 Amlodipine Besylate 2.5 mg 04/19/25 10:00 04/21/25 09:01 Amlodipine 2.5 Mg Tablet PO 2.5 mg DAILY VIMAL Administration Protocol Atorvastatin Calcium 20 mg 04/18/25 22:00 04/20/25 21:53 Atorvastatin Calcium 20 Mg Tablet PO 20 mg QHS VIMAL Administration Baclofen 20 mg 04/19/25 00:00 04/21/25 10:21 Baclofen 10 Mg Tablet PO Not Given Q6 VIMAL Carvedilol 3.125 mg 04/19/25 08:00 04/21/25 09:01 Carvedilol 3.125 Mg Tablet PO 3.125 mg BIDCM VIMAL Administration Cholecalciferol 125 mcg 04/19/25 10:00 04/21/25 09:02 Cholecalciferol (Vit D3) 125 Mcg Capsule (5,000 Units) PO 125 mcg DAILY VIMAL Administration Docusate Sodium 100 mg 04/18/25 22:00 04/21/25 09:02 Docusate Sodium 100 Mg Capsule PO 100 mg BID VIMAL Administration Gabapentin 800 mg 04/18/25 22:00 04/21/25 05:56 Gabapentin 800 Mg Tablet PO Not Given TID VIMAL Guaifenesin 1 tablet 04/19/25 07:31 Guaifenesin/D-Methorphan Tab.Sr.12h PO Q12H PRN cough/congest Hydromorphone HCl 0.5 - 1 mg 04/19/25 07:19 04/21/25 05:35 Hydromorphone 1 Mg/Ml Syringe IV 0.5 mg Q3H PRN PRN Administration Pain Score 6-10 Sodium Chloride 250 mls @ 15 mls/hr 04/18/25 21:41 IV .[id number] PRN Saline Flush Sodium Chloride 250 mls @ 15 mls/hr 04/18/25 21:41 IV .[id number] PRN Additional IVPB Infusion Pantoprazole Sodium 40 mg/ 100 mls @ 330 mls/hr 04/18/25 21:57 04/21/25 10:40 Sodium Chloride IV Infused Q24 VIMAL Infusion Lactated Ringer's 1,000 mls @ 15 mls/hr 04/20/25 13:00 04/21/25 15:37 IV 15 mls/hr .Q48H VIMAL Administration Ipratropium [place] Path 2 spray 04/19/25 07:17 Ipratropium [place] [address] 0.06% Nasal [place] NASAL TID PRN allergy symptoms Levothyroxine Sodium 50 mcg 04/19/25 06:00 04/21/25 05:56 Levothyroxine 50 Mcg Tablet PO Not Given DAILY@0600 [facility] Nutritional Formula (Lactose Free) 120 ml 04/19/25 08:00 04/21/25 10:20 Ensure Clear 120 Ml Liquid PO Not Given TIDCM [facility] Oxycodone HCl 10 mg 04/19/25 07:19 04/21/25 10:23 Oxycodone 5 Mg Tablet PO 10 mg Q4H PRN PRN Administration Pain Score 4-10 Polyethylene Glycol 17 gm 04/18/25 22:00 04/21/25 09:02 Polyethylene Glycol 3350 17 Gm Packet PO Not Given BID VIMAL Potassium Chloride 20 meq 04/21/25 17:00 Potassium Chloride Oral Soln 20 Meq/15 Ml Udc PO BIDCM [facility] Sodium Chloride 10 - 40 ml 04/18/25 21:41 04/19/25 22:46 0.9% Saline Lock 10 Ml Syringe IV 10 ml UD PRN Administration SALINE FLUSH PFSH Medical History Hypertensive emergency NSTEMI, initial episode of care Emphysema of lung Smoking greater than 30 pack years New onset atrial fibrillation [place] (dyspnea on exertion) Atherosclerotic heart disease of [place] coronary artery without angina pectoris Cardiac murmur Elevated troponin Mitral stenosis Chronic low back pain Diastolic hypertension Chest pain Nicotine dependence, cigarettes, uncomplicated Elevated troponin Depression On home oxygen therapy Atrial fibrillation PAF (paroxysmal atrial fibrillation) Atrial fibrillation Hypothyroidism Smoker Coronary artery disease TIA (transient ischemic attack) Influenza A Nonsustained paroxysmal supraventricular tachycardia Multiple sclerosis Nonobstructive atherosclerosis of coronary artery Peripheral vascular occlusive disease Essential (primary) hypertension Bilateral carotid artery stenosis History of transient ischemic attack (TIA) Fatty liver Thrombocytopenia GERD (gastroesophageal reflux disease) Psoriatic arthritis Psoriasis Osteoporosis Osteoarthritis Goiter Multiple sclerosis HLD (hyperlipidemia) Angina pectoris Chronic pain syndrome Home Medications ?Medication ?Instructions ?Recorded ?Last Taken ?Type gabapentin 800 mg tablet 800 mg PO TID MS 07/16/18 03/19/25 History baclofen 20 mg tablet 20 mg PO Q6H MS 08/11/21 03/19/25 History levothyroxine 50 mcg tablet 50 mcg PO DAILY thyroid 08/11/21 04/21/25 History oxycodone 10 mg tablet 10 mg PO Q6H PRN pain 05/24/23 12/01/23 History dextromethorphan-guaifenesin ER 60 1 tab PO Q12H PRN cough/congest 02/19/24 03/19/25 History mg-1,200 mg tab,extend release,12hr (Mucinex DM) famotidine 40 mg tablet 40 mg PO QDAY PRN indigestion 11/24/24 03/19/25 History lisinopril 10 mg tablet 10 mg PO BID blood pressure 11/24/24 03/19/25 History aspirin 81 mg tablet,delayed 81 mg PO BREAKFAST heart health 12/11/24 03/19/25 Rx release #30 tabs amlodipine 5 mg tablet (Norvasc) 2.5 mg (1/2 x 5 mg) PO QDAY bp #90 01/13/25 03/19/25 Rx tabs carvedilol 3.125 mg tablet 3.125 mg PO BIDCM heart #180 tabs 03/03/25 04/21/25 Rx apixaban 5 mg tablet (Eliquis) 5 mg PO Q12H anticoagulation #180 03/09/25 03/19/25 Rx tabs cholecalciferol (vitamin D3) 125 125 mcg PO DAILY supplement 04/18/25 Unknown History mcg (5,000 unit) capsule docusate sodium 100 mg capsule 100 mg PO BID stool softener 7 04/18/25 Unknown Rx (Colace) days #14 caps doxepin 10 mg/mL oral concentrate 5 - 10 mg PO QHS 04/18/25 Unknown History ipratropium bromide 42 mcg (0.06 2 spray intranasal TID PRN allergy 04/18/25 Unknown History %) nasal spray symptoms naloxegol 25 mg tablet (Movantik) 25 mg PO DAILY 30 days #30 tabs 04/18/25 Unknown Rx rosuvastatin 10 mg tablet 10 mg PO QHS hld 04/18/25 Unknown History Allergy/AdvReac Type Severity Reaction Status Date / Time colestipol (From Colestid) Allergy Mild unknown Verified 04/18/25 18:19 pregabalin (From Lyrica) Allergy Mild Hives Verified 04/18/25 18:19 amitriptyline Allergy Rash Verified 04/18/25 18:19 temazepam (From Restoril) AdvReac Mild Nausea/Vom/ Verified 04/18/25 18:19 Diarrhea Antihistamines - Alkylamine AdvReac Nausea/Vom/ Verified 04/18/25 18:19 Diarrhea Antihistamines - Ethanolamine AdvReac Nausea/Vom/ Verified 04/18/25 18:19 Diarrhea Antihistamines - AdvReac Nausea/Vom/ Verified 04/18/25 18:19 Ethylenediamine Diarrhea Antihistamines - Piperazine AdvReac Nausea/Vom/ Verified 04/18/25 18:19 Diarrhea Antihistamines - Piperidine AdvReac Nausea/Vom/ Verified 04/18/25 18:19 Diarrhea aspirin AdvReac I'M ON Verified 04/18/25 18:19 BLOOD THINNERS codeine AdvReac Nausea Verified 04/18/25 18:19 Corticosteroids AdvReac Upset Verified 04/18/25 18:19 (Glucocorticoids) Stomach morphine AdvReac Nausea Verified 04/18/25 18:19 Geaysle-DNQ-MkR Reductase AdvReac Nausea Verified 04/18/25 18:19 Inhibitor (Ujzvwqh-Meb-Unn Reductase Inhibitor) Family History Mother Cancer CAD (coronary artery disease) Brain tumor Grandfather CVA (cerebral vascular accident) Father CAD (coronary artery disease) Ruptured abdominal aortic aneurysm (AAA) Sister Brain aneurysm Surgical History History of coronary artery stent placement History of appendectomy History of cholecystectomy History of angioplasty of peripheral vessel (07/11/19) Stenosis of left subclavian artery History of left heart catheterization (01/25/15) S/P coil embolization of cerebral aneurysm History of angioplasty of peripheral vessel History of right-sided carotid endarterectomy History of left-sided carotid endarterectomy History of partial thyroidectomy (11/30/05) History of hemorrhoidectomy History of hysterectomy History of section Brain aneurysm Fracture of right lower leg S/P insertion of iliac artery stent History of left breast biopsy H/O hemorrhoidectomy S/P hysterectomy H/O: S/P thyroidectomy Social History household members: none housing: apartment Smoking Status: Light Smoker (<10/day) alcohol intake: never caffeine: Yes Type: coffee and tea Review of Systems (Anesthesia) ROS Narrative System reviewed and no additional complaints, except as documented.
--- NOTE | 2025-04-21 16:15 | PCM.PN.BLA ---
Progress Note Patient is n.p.o. for EGD today. All questions concerns answered. Physical Exam Const alert, oriented x3, no apparent distress and healthy appearing General Appearance: cooperative GI normal to inspection, nondistended, normoactive bowel sounds, soft to palpation, non-tender and non-distended Percussion: normal to percussion Rectal Exam: deferred Assessment & Plan Assessment/Plan (1) Symptomatic anemia: PLAN: Plan Patient is a 69-year-old lady presented with fatigue found to be anemic with hemoglobin of 7.3. She is on anticoagulation with Eliquis for atrial fibrillation. Hemoglobin is up after blood transfusion. She was explained alternatives, risk and benefits include not withstanding bleeding, infection, sepsis, perforation, need for more surgery . She will have an ASA of 3. 04/21/2025.-Patient underwent an upper endoscopy yesterday and no etiology of GI bleed was seen. She was supposed to get prep for a colonoscopy last night. However she cannot tolerate NG tube placement and could not tolerate the prep. We will place NG tube and order endoscopy today. And then she can take the tube after her prep is complete. Visit Charges Inpatient E&M: 25516 [facility] Hosp L3
--- NOTE | 2025-04-21 16:56 | PCM.POST.ANE ---
Anesthesia: Postop Eval I Current Vital Signs Temperature: 97 F Pulse Rate: 77 Blood Pressure: 132/70 Respiratory Rate: 16 Pulse Ox: 100 Oxygen Delivery Method: Room Air Assessment Airway patent: Yes Spontaneous unlabored respirations: Yes Mental status: Awake and Calm nausea: No Vomiting: No Anesthesia Complication: No Fluid Hydration Crystalloid volume administer (ml): 100 Total IV fluid infused: 100 Progress Note Anesthesia document: Postop Eval 1 completed: Yes
--- NOTE | 2025-04-21 17:00 | POSTOPAN2_ITS ---
Anesthesia Postop Eval I Sum Postop Eval Completion status Anesthesia document: Postop Eval 1 completed: Yes Anesthesia Postop Eval I Summary Anesthesia Postop Eval I Summary: Anesthesia Postop Eval I: Assessment Summary Airway patent Yes 04/21/25 16:57 DIVISION OPERATIONS MANAGER.MDOT Spontaneous unlabored Yes 04/21/25 16:57 DIVISION OPERATIONS MANAGER.MDOT respirations Mental status Awake,Calm 04/21/25 16:57 DIVISION OPERATIONS MANAGER.MDOT nausea No 04/21/25 16:57 DIVISION OPERATIONS MANAGER.MDOT Vomiting No 04/21/25 16:57 DIVISION OPERATIONS MANAGER.MDOT Anesthesia Postop Eval I: Fluid Summary Crystalloid volume administer 100 04/21/25 16:57 DIVISION OPERATIONS MANAGER.MDOT (ml) Colloids volume administered ( ml) Blood Product volume administered (ml) Total IV fluid infused 100 04/21/25 16:57 DIVISION OPERATIONS MANAGER.MDOT Anesthesia Postop Eval I: Summary Notes Anesthesia Complication No 04/21/25 16:57 DIVISION OPERATIONS MANAGER.MDOT Anesthesia Complication Comment: Post-operative progress note Anesthesia: Postop Eval II Evaluation Mental status: Awake and Calm Pain Level: 0 nausea: No Vomiting: No Complications Anesthesia Complication: No
--- NOTE | 2025-04-21 17:00 | PCM.POSTANE2 ---
Anesthesia Postop Eval I Sum Postop Eval Completion status Anesthesia document: Postop Eval 1 completed: Yes Anesthesia Postop Eval I Summary Anesthesia Postop Eval I Summary: Anesthesia Postop Eval I: Assessment Summary Airway patent Yes 04/21/25 16:57 SPEECH THERAPY ASSISTANT.MDOT Spontaneous unlabored Yes 04/21/25 16:57 SPEECH THERAPY ASSISTANT.MDOT respirations Mental status Awake,Calm 04/21/25 16:57 SPEECH THERAPY ASSISTANT.MDOT nausea No 04/21/25 16:57 SPEECH THERAPY ASSISTANT.MDOT Vomiting No 04/21/25 16:57 SPEECH THERAPY ASSISTANT.MDOT Anesthesia Postop Eval I: Fluid Summary Crystalloid volume administer 100 04/21/25 16:57 SPEECH THERAPY ASSISTANT.MDOT (ml) Colloids volume administered ( ml) Blood Product volume administered (ml) Total IV fluid infused 100 04/21/25 16:57 SPEECH THERAPY ASSISTANT.MDOT Anesthesia Postop Eval I: Summary Notes Anesthesia Complication No 04/21/25 16:57 SPEECH THERAPY ASSISTANT.MDOT Anesthesia Complication Comment: Post-operative progress note Anesthesia: Postop Eval II Evaluation Mental status: Awake and Calm Pain Level: 0 nausea: No Vomiting: No Complications Anesthesia Complication: No
--- NOTE | 2025-04-21 17:01 | OP.EGD_ITS ---
Patient Name: Angélica Yo Procedure Date: 04/21/2025 4:37 PM Date of : 1955 Age: 69 Procedure: Upper GI endoscopy Indications: Functional Dyspepsia, Dysphagia Providers: Kevin Gonzalez DO Referring MD: Sachin Murillo Medicines: Monitored Anesthesia Care Patient Profile: This is a 69 year old female. Refer to note in patient chart for documentation of history and physical. Patient has symptoms of dysphagia with both liquids and solids. Complications: No immediate complications. Procedure: Pre-Anesthesia Assessment: - Prior to the procedure, a History and Physical was performed, and patient medications and allergies were reviewed. The patient is competent. The risks and benefits of the procedure and the sedation options and risks were discussed with the patient. All questions were answered and informed consent was obtained. Patient identification and proposed procedure were verified by the physician in the pre-procedure area. Mental Status Examination: alert and oriented. Airway Examination: normal oropharyngeal airway and neck mobility. Respiratory Examination: clear to auscultation. CV Examination: normal. Prophylactic Antibiotics: The patient does not require prophylactic antibiotics. Prior Anticoagulants: The patient has taken no anticoagulant or antiplatelet agents except for NSAID medication. ASA Grade Assessment: II - A patient with mild systemic disease. After reviewing the risks and benefits, the patient was deemed in satisfactory condition to undergo the procedure. The anesthesia plan was to use monitored anesthesia care (MAC). Immediately prior to administration of medications, the patient was re-assessed for adequacy to receive sedatives. The heart rate, respiratory rate, oxygen saturations, blood pressure, adequacy of pulmonary ventilation, and response to care were monitored throughout the procedure. The physical status of the patient was re-assessed after the procedure. After obtaining informed consent, the endoscope was passed under direct vision. Throughout the procedure, the patient's blood pressure, pulse, and oxygen saturations were monitored continuously. The gastroscope was introduced through the mouth, and advanced to the second part of duodenum. The upper GI endoscopy was accomplished without difficulty. The patient tolerated the procedure well. Scope In: 4:52:41 PM Scope Out: 4:53:40 PM Total Procedure Duration Time 0 hours 0 minutes 59 seconds Findings: The examined esophagus was normal. The entire examined stomach was normal. A 14 Fr nasogastric tube was placed through the nares into the esophagus. Under endoscopic guidance, the tube was advanced into the stomach. Placement was confirmed by scope visualization. No gross lesions were noted in the duodenal bulb. Impression: - Normal esophagus. - Normal stomach. - No gross lesions in the duodenal bulb. - Feeding tube placement was successfully performed. - No specimens collected. Recommendation: - Return patient to [facility] for ongoing care. - Clear liquid diet. - Continue present medications. -Please give GoLytely through the NG tube. After the GoLytely is given, then the NG tube can be removed. Procedure Code(s): --- Professional --- 70337, Esophagogastroduodenoscopy, flexible, transoral; with insertion of intraluminal tube or catheter CPT copyright 2021 [employer]. All rights reserved. The codes documented in this report are preliminary and upon director data processing review may be revised to meet current compliance requirements. Kevin Gonzalez DO 04/21/2025 5:00:29 PM This report has been signed electronically. Number of Addenda: 0 Note Initiated On: 04/21/2025 4:37 PM
--- NOTE | 2025-04-21 17:01 | OP.CCLET_ITS ---
04/21/2025 Daron Benton [address] [place] [address] Re : Upper GI endoscopy procedure for Angélica Yo Dear Dr. Benton This procedure was performed on Monday, April 21, 2025. My impressions and recommendations are as follows: Impressions : - Normal esophagus. - Normal stomach. - No gross lesions in the duodenal bulb. - Feeding tube placement was successfully performed. - No specimens collected. Recommendations : - Return patient to [facility] for ongoing care. - Clear liquid diet. - Continue present medications. -Please give GoLytely through the NG tube. After the GoLytely is given, then the NG tube can be removed. My findings are described in the full procedure note, which is enclosed. If I can be of further assistance, please feel free to contact me at . Sincerely, Kevin Gonzalez, 04/21/2025 5:00:29 PM This report has been signed electronically.
[2025-04-21] MEDS: Bisacodyl 5 MG Tablet 20 MG PO (17:47)
[2025-04-21] MEDS: Gabapentin 800 MG Tablet PO ×2 (17:48→22:26)
[2025-04-21] MEDS: Baclofen 10 MG Tablet 20 MG PO (17:48)
[2025-04-21] MEDS: Potassium Chloride Oral Soln 20 MEQ/15 ML UDC PO (17:49)
[2025-04-21] MEDS: Polyethylene Glycol 3350 BOWEL PREP PO (18:02)
--- NOTE | 2025-04-21 18:24 | ANES.CONFIRM ---
Anesthesia: Confirm Documents Multiple Procedures on Account (2) Confirmed Documents: Yes
[2025-04-21] MEDS: Atorvastatin Calcium 20 MG Tablet PO (22:27)
[2025-04-22] VITALS (9 sets, daily range): BP systolic 101–161; BP diastolic 58–91; PULSE 55–124; RESP 15–18; TEMP 36.4–36.7; O2SAT 94–99
[2025-04-22] MEDS: Baclofen 10 MG Tablet 20 MG PO (00:42)
[2025-04-22] MEDS: oxyCODONE 5 MG Tablet 10 MG PO ×4 (02:26→17:03)
[2025-04-22 05:21] LABS: Hematocrit 29.2 % (37-47); Hemoglobin 9.4 g/dL (12.0-15.0); Mean Corp Hgb Conc 32.2 g/dL (32-36); Mean Corpuscular Hgb 26.8 pg (27.0-32.0); Mean Corpuscular Volume 83.2 fL (81-99); Mean Platelet Vol. 9.7 fl (6.2-12.0); Platelet Count 152 K/mm3 (150-450); RBC Distribution Width CV 17.5 % (11.6-14.6); RBC Distribution Width SD 52.6 fl (35.1-43.9); Red Blood Count 3.51 M/mm3 (4.2-5.4); White Blood Count 7.1 K/mm3 (4.4-11.0)
[2025-04-22 06:18] LABS: Anion Gap 12 (5-15); BUN 8 mg/dL (4-19); Calcium,Total 8.3 mg/dL (7.6-11.0); Carbon Dioxide 18.8 mmol/L (21.0-32.0); Chloride 107 mmol/L (98-108); Creatinine, Serum 1.08 mg/dL (0.70-1.20); EST Glomerular Filtration Rate 55 (>60); Estimated Creatinine Clearance 34.97 ml/min (50-250); Glucose 89 mg/dL (70-99); Potassium 3.8 mmol/L (3.3-5.1); Sodium Level 137 mmol/L (133-145)
--- NOTE | 2025-04-22 07:13 | PN.HOSP_ITS ---
Reason for Visit Reason for Visit: Diagnoses Anemia, unspecified (04/18/25) Subjective Subjective Patient had NG tube placed in the Endo unit by Dr. Gonzalez to start patient prep for her colonoscopy Objective Data Objective Data Vital Signs: Vital Signs Temp Pulse Resp BP Pulse Ox O2 Del Method 97.6 F L 55 L 18 150/78 H 99 Room Air 04/22/25 02:11 04/22/25 02:11 04/22/25 02:11 04/22/25 02:11 04/22/25 02:11 04/22/25 02:11 Oxygen Delivery Method Room Air Weight: 45.7 kg Body Mass Index (BMI) 16.7 Intake & Output: Intake and Output for Last 24 Hours 04/20/25 04/21/25 04/22/25 23:59 23:59 23:59 Intake Total 175 / 175 1450 / 1450 3500 / 3500 Output Total 400 / 400 1600 / 1600 Balance -225 / -225 -150 / -150 3500 / 3500 Lab / Micro Data 04/22/25 05:15 04/22/25 05:15 Labs: Laboratory Results - last 24 hr 04/22/25 05:15: WBC 7.1, RBC 3.51 L, Hgb 9.4 L, Hct 29.2 L, MCV 83.2, MCH 26.8 L , MCHC 32.2, RDW Std Deviation 52.6 H, RDW Coeff of David 17.5 H, Plt Count 152, MPV 9.7, Sodium 137, Potassium 3.8, Chloride 107, Carbon Dioxide 18.8 L, Anion Gap 12, BUN 8, Creatinine 1.08, Estim Creat Clear Calc 34.97 L, Est GFR (MDRD) Non-Af 55 L, BUN/Creatinine Ratio 7.0 L, Glucose 89, Calcium 8.3 Micro: Microbiology 04/21/25 10:00 Stool Stool Occult Blood (CARMEN) - Final Occult Blood Positive Physical Exam Narrative GENERAL: cooperative HEENT: Atraumatic; normocephalic EYES; Anicteric, pallor of the conjunctiva NECK; supple, normal thyroid, RESPIRATORY: Diminished to auscultation CARDIOVASCULAR: Regular S1 S2, GI: soft, normoactive bowel sounds, : No Renal angle tenderness; EXTREMITIES: No edema, no clubbing, MUSCULOSKELETAL: no muscle wasting NEURO: Awake; no lateralizing signs. SKIN: No Rash PSYCH; Flat affect Assessment & Plan Assessment/Plan (1) Symptomatic anemia: PLAN: Plan Patient is a 68-year-old lady presented with fatigue found to be anemic with hemoglobin of 7.3. 1. Symptomatic anemia ? Suspected to be secondary to chronic GI bleed exacerbated by the use of systemic anticoagulant?apixaban. Patient is on apixaban for systemic anticoagulation for A-fib. Patient hemoglobin on admission was 7.3. Patient hemoglobin did drop to 6.3 and order was given for patient to be transfused 1 unit PRBC. 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 Subsequent monitoring with daily H&H ordered consult placed to GI ? 04/20/2025; patient hemoglobin up to 10.6. Patient was kept n.p.o. pending GI evaluation ? 04/21/2025; patient underwent EGD the day prior findings and recommendations as below ?Impressions : - Normal esophagus. - No gross lesions in the entire stomach. 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 Treated with a heater probe. - No specimens collected. Recommendations : - Return patient to [facility] for ongoing care. - Full liquid diet. - Continue present medications. -Plan is for patient to complete her evaluation with a colonoscopy. Patient is however refusing to drink the prep she also refused NG. Hgb down to 9.4 2. Paroxysmal A-fib ? Rate controlled on systemic anticoagulation with apixaban held given her presentation 3.. Hypertension - Blood pressure controlled, home medications continued with dose adjustment as needed 4. Multiple sclerosis ? Per history patient is on baclofen for muscle relaxation 5. Hypothyroidism ? Patient is on levothyroxine did continue with home dose 6. Peripheral arterial disease ? With history of bilateral carotid artery stenosis, peripheral vascular occlusive disease. Patient was on systemic anticoagulation with apixaban held given about reasons 7. Dyslipidemia ?Patient is on statin therapy, continued at home dose 8. DVT prophylaxis ? Patient is on apixaban held 9. Chronic pain syndrome ? Restarted patient home pain regimen Charges/Coding Visit Charges Inpatient E&M: 72366 Subs Hosp L2
[2025-04-22] MEDS: amLODIPine 2.5 MG Tablet PO (08:02)
[2025-04-22] MEDS: Carvedilol 3.125 MG TABLET PO ×2 (08:02→15:33)
[2025-04-22] MEDS: 0.9% Saline Lock 10 ML Syringe IV (09:54)
[2025-04-22] MEDS: Pantoprazole Sodium 40 MG in 0.9% Normal Saline (100mL MB+) 100 ML 330 MG IV (09:55)
--- NOTE | 2025-04-22 11:08 | NURSING ---
pt off unit for procedure
[2025-04-22] MEDS: Lactated Ringers 1,000 ML 15 ML IV (11:15)
--- NOTE | 2025-04-22 11:16 | PRE.ANES_ITS ---
ASA Classification* ASA Classification ASA Classification: 3 (pAF, HTN, MS, Hypothyroid, PAD (hx bilateral carotid artery stenosis)) Assessment & Plan Anesthesia* Anesthesia Assessment Anesthesia Assessment: Discussed sedation and/or anesthesia options, risks, benefits, and alternatives with patient/parents/legal guardian/POA. Questions invited. The patient/parents/legal guardian/POA seems to understand and agrees to proceed with anesthesia plan. Reviewed the physical assessment, medical history, allergy history and patient home medications list prior to surgery/procedure/anesthetic and documented any changes. Performed airway and anesthesia risk assessments. Anesthesia Type Anesthesia Type: General History Source History Obtained from:: Patient and Chart Anesthesia Focused Assessment* Temperature: 97.7 F Pulse Rate: 59 Blood Pressure: 161/79 Respiratory Rate: 15 Pulse Ox: 96 Oxygen Delivery Method: Room Air Airway Assessment Mouth opens: >3 cm Mallampati Score: II Teeth Condition: Dentures, Lower and Upper Neck Range of motion (ROM): Full ROM Focused Labs Anesthesia Preop lab: CBC WBC 7.1 K/mm3 (4.4-11.0) 04/22/25 05:15 04/22/25 RBC 3.51 M/mm3 (4.2-5.4) L 04/22/25 05:15 04/22/25 Hgb 9.4 g/dL (12.0-15.0) L 04/22/25 05:15 04/22/25 Hct 29.2 % (37-47) L 04/22/25 05:15 04/22/25 Plt Count 152 K/mm3 (150-450) 04/22/25 05:15 04/22/25 CHEMISTRY Potassium 3.8 mmol/L (3.3-5.1) 04/22/25 05:15 04/22/25 Sodium 137 mmol/L (133-145) 04/22/25 05:15 04/22/25 Magnesium 2.2 mg/dL (1.5-2.2) 04/20/25 05:40 04/20/25 Phosphorus 3.5 mg/dL (2.7-4.5) 04/20/25 05:40 04/20/25 BUN 8 mg/dL (4-19) 04/22/25 05:15 04/22/25 Creatinine 1.08 mg/dL (0.70-1.20) 04/22/25 05:15 04/22/25 Glucose 89 mg/dL (70-99) 04/22/25 05:15 04/22/25 POC Glucose 109 mg/dL (74-106) H 04/21/25 01:15 04/21/25 TSH 5.620 uIU/mL (0.300-4.200) H 04/20/25 05:40 COAG PT 12.9 SECONDS (11.7-14.9) 01/11/25 00:18 Pre-Assessment Diagnosis/Proposed Procedure Planned Operative Procedure(s): EGD 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 - payable representative: 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 - payable representative Hx Hospitalization No 04/15/21 11:49 Any Problems With Anesthesia No 02/24/24 23:50 Cholinesterase deficiency No 02/24/24 23:50 You/Your Family Experience No 02/24/24 23:50 fever (hyperthermia) with Relationship Recent Exposure to Contagious No 02/25/24 11:12 Disease Does patient have nerve No 02/24/24 23:50 stimulator Patient instructed to have device shut off --Does patient have Pacemaker No 04/21/25 15:30 or ICD? When Was Last Pacemaker Check QUESTION #4 FULL TEXT: You/Your Family Experience fever (hyperthermia) with Anesthesia Last Oral Intake Last Oral intake: Last Oral Intake NPO since 00:01 04/21/25 15:30 Meds taken in AM with sips of Yes 04/21/25 15:30 water? Meds patient instructed to see 04/21/25 15:30 take am of surgery PONV PONV - payable representative: PONV - payable representative Female HX of Motion Sickness HX of N/V After Surgery Non-Smoker Duration of Surgery greater than 60 minutes Number of Risk Factors PONV Score Height & Weight Height & Weight: Anesthesia: Height & Weight Height 5 ft 5 in 04/21/25 15:30 Weight: 45.7 kg 04/21/25 15:30 Body Mass Index (BMI) 16.7 04/21/25 15:30 Respiratory Assessment Respiratory Assessment - payable representative: Respiratory Tract Infection Hx - payable representative Hx Respiratory Tract Infection No 04/07/24 23:50 STOP Sleep Apnea STOP Sleep Apnea - payable representative: STOP Sleep Apnea - payable representative Hx Hypertension Yes 04/18/25 21:53 Hx Sleep Apnea No 04/18/25 21:53 CPAP BIPAP Do you snore loudly (louder No 04/18/25 21:53 than talking or can be heard Do you often feel tired/ No 04/18/25 21:53 fatigued/ sleepy during daytime? Has anyone observed you stop No 04/18/25 21:53 breathing during sleep? STOP Results Negative 04/21/25 17:00 QUESTION #5 FULL TEXT : Do you snore loudly (louder than talking or can be heard through closed doors)? Tobacco Use History Tobacco Use History - payable representative: Tobacco Use History - payable representative Tobacco Use Smoking Status Light Smoker (<10/day) 04/20/25 21:39 Hx Tobacco Use Yes 04/18/25 21:53 Years Smoking Packs Smoked per Day Smoking Cessation Date was within the last 15 years Hx Smoking Cessation Date Hx Smoking Cessation No 04/18/25 21:53 Counseling Hematologic Medial History Hematologic Hx - payable representative: Hematologic Medical Hx - home sales consultant Hx of Blood Transfusion Yes 04/18/25 21:53 Hx of Transfusion in last 3 No 04/18/25 21:53 Months Date of Last Transfusion (if within last 3 months) Ever experience any problems No 04/18/25 21:53 with transfusion(s)? Specify any problems Hx of Preganancy in last 3 No 04/18/25 21:53 Months Nurse Filling Out Transfusion DREDICK 04/18/25 21:53 & Questions: Date: 04/18/25 04/18/25 21:53 Time: 21:54 04/18/25 21:53 Patient unable to answer at this time (ie. confused, unrespo /Reproduction History /Reproductive History - payable representative: /Reproductive Hx- payable representative Hx Now Gestational Age (in weeks): EDC: Hx Hx Para Hx Section SAB No 02/24/24 23:50 Active Medications Active Medications: Current Medications Generic Name Dose Route Start Last Admin Trade Name Freq PRN Reason Stop Dose Admin Acetaminophen 650 mg 04/19/25 07:19 04/21/25 10:19 Acetaminophen 325 Mg Tablet PO 650 mg Q6H PRN PRN Administration Pain 1-10 Or Fever >100.7 Amlodipine Besylate 2.5 mg 04/19/25 10:00 04/22/25 08:02 Amlodipine 2.5 Mg Tablet PO 2.5 mg DAILY VIMAL Administration Protocol Atorvastatin Calcium 20 mg 04/18/25 22:00 04/21/25 22:27 Atorvastatin Calcium 20 Mg Tablet PO 20 mg QHS VIMAL Administration Baclofen 20 mg 04/19/25 00:00 04/22/25 05:13 Baclofen 10 Mg Tablet PO Not Given Q6 VIMAL Carvedilol 3.125 mg 04/19/25 08:00 04/22/25 08:02 Carvedilol 3.125 Mg Tablet PO 3.125 mg BIDCM VIMAL Administration Cholecalciferol 125 mcg 04/19/25 10:00 04/22/25 07:19 Cholecalciferol (Vit D3) 125 Mcg Capsule (5,000 Units) PO Not Given DAILY VIMAL Docusate Sodium 100 mg 04/18/25 22:00 04/22/25 07:18 Docusate Sodium 100 Mg Capsule PO Not Given BID [facility] Gabapentin 800 mg 04/18/25 22:00 04/22/25 05:13 Gabapentin 800 Mg Tablet PO Not Given TID [facility] Guaifenesin 1 tablet 04/19/25 07:31 Guaifenesin/D-Methorphan Tab.Sr.12h PO Q12H PRN cough/congest Hydromorphone HCl 0.5 - 1 mg 04/19/25 07:19 04/21/25 05:35 Hydromorphone 1 Mg/Ml Syringe IV 0.5 mg Q3H PRN PRN Administration Pain Score 6-10 Sodium Chloride 250 mls @ 15 mls/hr 04/18/25 21:41 IV .[id number] PRN Saline Flush Sodium Chloride 250 mls @ 15 mls/hr 04/18/25 21:41 IV .[id number] PRN Additional IVPB Infusion Pantoprazole Sodium 40 mg/ 100 mls @ 330 mls/hr 04/18/25 21:57 04/22/25 09:55 Sodium Chloride IV 330 mls/hr Q24 VIMAL Administration Lactated Ringer's 1,000 mls @ 15 mls/hr 04/20/25 13:00 04/21/25 15:37 IV 15 mls/hr .Q48H VIMAL Administration Lactated Ringer's 1,000 mls @ 15 mls/hr 04/22/25 11:15 IV .Q48H VIMAL Ipratropium [place] 2 spray 04/19/25 07:17 Ipratropium [place] 0.06% Nasal [place] NASAL TID PRN allergy symptoms Levothyroxine Sodium 50 mcg 04/19/25 06:00 04/22/25 05:14 Levothyroxine 50 Mcg Tablet PO Not Given DAILY@0600 [facility] Nutritional Formula (Lactose Free) 120 ml 04/19/25 08:00 04/22/25 07:18 Ensure Clear 120 Ml Liquid PO Not Given TIDCM [facility] Oxycodone HCl 10 mg 04/19/25 07:19 04/22/25 06:38 Oxycodone 5 Mg Tablet PO 10 mg Q4H PRN PRN Administration Pain Score 4-10 Polyethylene Glycol 17 gm 04/18/25 22:00 04/22/25 07:19 Polyethylene Glycol 3350 17 Gm Packet PO Not Given BID VIMAL Potassium Chloride 20 meq 04/21/25 17:00 04/22/25 07:18 Potassium Chloride Oral Soln 20 Meq/15 Ml Udc PO Not Given BIDCM [facility] Sodium Chloride 10 - 40 ml 04/18/25 21:41 04/22/25 09:54 0.9% Saline Lock 10 Ml Syringe IV 10 ml UD PRN Administration SALINE FLUSH PFSH Medical History Hypertensive emergency NSTEMI, initial episode of care Emphysema of lung Smoking greater than 30 pack years New onset atrial fibrillation [place] (dyspnea on exertion) Atherosclerotic heart disease of [place] coronary artery without angina pectoris Cardiac murmur Elevated troponin Mitral stenosis Chronic low back pain Diastolic hypertension Chest pain Nicotine dependence, cigarettes, uncomplicated Elevated troponin Depression On home oxygen therapy Atrial fibrillation PAF (paroxysmal atrial fibrillation) Atrial fibrillation Hypothyroidism Smoker Coronary artery disease TIA (transient ischemic attack) Influenza A Nonsustained paroxysmal supraventricular tachycardia Multiple sclerosis Nonobstructive atherosclerosis of coronary artery Peripheral vascular occlusive disease Essential (primary) hypertension Bilateral carotid artery stenosis History of transient ischemic attack (TIA) Fatty liver Thrombocytopenia GERD (gastroesophageal reflux disease) Psoriatic arthritis Psoriasis Osteoporosis Osteoarthritis Goiter Multiple sclerosis HLD (hyperlipidemia) Angina pectoris Chronic pain syndrome Home Medications ?Medication ?Instructions ?Recorded ?Last Taken ?Type gabapentin 800 mg tablet 800 mg PO TID MS 07/16/18 History baclofen 20 mg tablet 20 mg PO Q6H MS 08/11/2112/13 History levothyroxine 50 mcg tablet 50 mcg PO DAILY thyroid 04/21/25 History oxycodone 10 mg tablet 10 mg PO Q6H PRN pain 12/01/23 History dextromethorphan-guaifenesin ER 60 1 tab PO Q12H PRN c ough/congest 02/19/24 03/19/25 History mg-1,200 mg tab,extend release,12hr (Mucinex DM) famotidine 40 mg tablet 40 mg PO QDAY PRN indigestio n 11/24/24 03/19/25 History lisinopril 10 mg tablet 10 mg PO BID blood pressure 11/24/24 03/19/25 History aspirin 81 mg tablet,delayed 81 mg PO BREAKFAST heart health 12/11/24 03/19/25 Rx release #30 tabs amlodipine 5 mg tablet (Norvasc) 2.5 mg (1/2 x 5 mg) P O QDAY bp #90 01/13/25 03/19/25 Rx tabs carvedilol 3.125 mg tablet 3.125 mg PO BIDCM heart #18 0 tabs 03/03/25 04/21/25 Rx apixaban 5 mg tablet (Eliquis) 5 mg PO Q12H anticoagul ation #180 03/09/25 03/19/25 Rx tabs cholecalciferol (vitamin D3) 125 125 mcg PO DAILY supp lement 04/18/25 Unknown History mcg (5,000 unit) capsule docusate sodium 100 mg capsule 100 mg PO BID stool sof tener 7 04/18/25 Unknown Rx (Colace) days #14 caps doxepin 10 mg/mL oral concentrate 5 - 10 mg PO QHS Unknown History ipratropium bromide 42 mcg (0.06 2 spray intranasal TI D PRN allergy 04/18/25 Unknown History %) nasal spray symptoms naloxegol 25 mg tablet (Movantik) 25 mg PO DAILY 30 da ys #30 tabs 04/18/25 Unknown Rx rosuvastatin 10 mg tablet 10 mg PO QHS hld 04/18/25 Un known History Allergy/AdvReac Type Severity Reaction Status Date / Time colestipol (From Colestid) Allergy Mild unknown Verified 04/18/25 18:19 pregabalin (From Lyrica) Allergy Mild Hives Verified 04/18/25 18:19 amitriptyline Allergy Rash Verified 04/18/25 18:19 temazepam (From Restoril) AdvReac Mild Nausea/Vom/ Verified 04/18/25 18:19 Diarrhea Antihistamines - Alkylamine AdvReac Nausea/Vom/ Verified 04/18/25 18:19 Diarrhea Antihistamines - Ethanolamine AdvReac Nausea/Vom/ Verified 04/18/25 18:19 Diarrhea Antihistamines - AdvReac Nausea/Vom/ Verified 04/18/25 18:19 Ethylenediamine Diarrhea Antihistamines - Piperazine AdvReac Nausea/Vom/ Verified 04/18/25 18:19 Diarrhea Antihistamines - Piperidine AdvReac Nausea/Vom/ Verified 04/18/25 18:19 Diarrhea aspirin AdvReac I'M ON Verified 04/18/25 18:19 BLOOD THINNERS codeine AdvReac Nausea Verified 04/18/25 18:19 Corticosteroids AdvReac Upset Verified 04/18/25 18:19 (Glucocorticoids) Stomach morphine AdvReac Nausea Verified 04/18/25 18:19 Bampdqv-JFV-NcK Reductase AdvReac Nausea Verified 04/18/25 18:19 Inhibitor (Djtnmeq-Kxu-Xwh Reductase Inhibitor) Family History Mother Cancer CAD (coronary artery disease) Brain tumor Grandfather CVA (cerebral vascular accident) Father CAD (coronary artery disease) Ruptured abdominal aortic aneurysm (AAA) Sister Brain aneurysm Surgical History History of coronary artery stent placement History of appendectomy History of cholecystectomy History of angioplasty of peripheral vessel (07/11/19) Stenosis of left subclavian artery History of left heart catheterization (01/25/15) S/P coil embolization of cerebral aneurysm History of angioplasty of peripheral vessel History of right-sided carotid endarterectomy History of left-sided carotid endarterectomy History of partial thyroidectomy (11/30/05) History of hemorrhoidectomy History of hysterectomy History of section Brain aneurysm Fracture of right lower leg S/P insertion of iliac artery stent History of left breast biopsy H/O hemorrhoidectomy S/P hysterectomy H/O: S/P thyroidectomy Social History household members: none housing: apartment Smoking Status: Light Smoker (<10/day) alcohol intake: never caffeine: Yes Type: coffee and tea Review of Systems (Anesthesia) ROS Narrative System reviewed and no additional complaints, except as documented. Physical Exam Const alert, oriented x3 and average body habitus Resp normal respiratory effort, normal air movement and clear to auscultation bilaterally Cardio regular rate, regular rhythm, no murmurs and diaphoretic
--- NOTE | 2025-04-22 12:00 | COLBX_PTH ---
PATIENT: ADY WALLER LOC: MS3 U#:[id number] AGE/SX: 69/F ROOM: [facility] [place] RE04/18/[address]: Dr. Roman Mckeon MD : 1955 BED: 1 DIS: 04/22/2025 SPEC #: [id number] RECD: 04/22/25 15:20 STATUS: MARY REJose #: [id number] LIZBET: 04/22/25 12:[address]: Kevin Gonzalez DEPT: SURGICAL PATHOLOGY RECD BY: Juventino Rivas ENTERED: 04/22/25 15:29 SP TYPE: COLON BX OTHR DR: MD Dr. Daron Hurt MD Dr. Nicholas F Kotsonis, MD Tissues: A - SPLENIC FLEXURE B - Rectum, NOS Procedures: Surgery Specimen Level IV Comments: @ Ordering doctor for SUIV edited from to @ silvia MCKENZIE at 04/22/25 1529 @ Submitting doctor edited from to @ by JONAH at 04/22/25 1529 HEADER OPERATION: Colonoscopy with polypectomy and biopsy PRE-OP DIAGNOSIS: Symptomatic anemia TISSUE SUBMITTED: A- Splenic flexure polyp, B- Rectal ulcer biopsy MICROSCOPIC DIAGNOSIS A. Large intestine, splenic flexure polyp, biopsies: * Tubular adenoma B. Rectum, ulcer: * Area with irregularly shaped and occasionally dilated crypts without dysplasia and with superficial erosion, suggesting an inflammatory polyp: MICROSCOPIC DESCRIPTION Slides are reviewed. GROSS DESCRIPTION A. Received in formalin in a container labeled with the patient's name, date of , and splenic flexure polyp are multiple rubalcava-pink fragments of mucosal tissue measuring 0.7 x 0.7 x 0.4 cm in aggregate. Submitted in toto in A1. B. Received in formalin in a container labeled with the patient's name, date of , and rectal ulcer biopsy are 2 rubalcava-pink fragments of mucosal tissue measuring 0.2 x 0.2 x 0.1 cm and 0.4 x 0.2 x 0.2 cm. Submitted in toto in B1. [facility] 04-22-2025 CPT:97604e1
--- NOTE | 2025-04-22 12:10 | CASEMGMT ---
Addendum entered by Jeannie Walton 04/22/25 15:22: YAW called Tena at [facility] to confirm discharge today. YAW faxed discharge documentation to Tena. ANGELINA Matta Original Note: Social Work- YAW called Deana [facility] CM, and left a message to coordinate regarding pt. YAW remains available to follow. ANGELINA Matta
--- NOTE | 2025-04-22 12:30 | PCM.PN.BLA ---
Progress Note The patient underwent NG tube placement yesterday. She tolerated the prep. She is for colonoscopy today. Physical Exam Const alert, oriented x3, no apparent distress and healthy appearing General Appearance: cooperative GI normal to inspection, nondistended, normoactive bowel sounds, soft to palpation, non-tender and non-distended Percussion: normal to percussion Rectal Exam: deferred Assessment & Plan Assessment/Plan (1) Symptomatic anemia: PLAN: Plan Patient is a 69-year-old lady presented with fatigue found to be anemic with hemoglobin of 7.3. She is on anticoagulation with Eliquis for atrial fibrillation. Hemoglobin is up after blood transfusion. She was explained alternatives, risk and benefits include not withstanding bleeding, infection, sepsis, perforation, need for more surgery . She will have an ASA of 3. 04/21/2025.-Patient underwent an upper endoscopy yesterday and no etiology of GI bleed was seen. She was supposed to get prep for a colonoscopy last night. However she can not tolerate NG tube placement and could not tolerate the prep. We will place NG tube and order endoscopy today. And then she can take the tube after her prep is complete. 04/22/2025-patient will have colonoscopy today. Patient was explained alternatives, risk and benefits include not withstanding bleeding, pressure, sepsis, perforation, need for more transient . She will have an ASA of 3. Visit Charges Inpatient E&M: 77458 Subs Hosp L2
--- NOTE | 2025-04-22 13:28 | OP.COLON_ITS ---
Patient Name: Angélica Yo Procedure Date: 04/22/2025 12:37 PM Date of : 1955 Age: 69 Procedure: Colonoscopy Indications: Hematochezia, Heme positive stool, Gastrointestinal bleeding, Acute post hemorrhagic anemia, Iron deficiency anemia Providers: Kevin Gonzalez DO Referring MD: Sachin Murillo Medicines: Monitored Anesthesia Care Patient Profile: This is a 69 year old female. Refer to note in patient chart for documentation of history and physical. Last Colonoscopy: 3 years ago. Complications: No immediate complications. Procedure: Pre-Anesthesia Assessment: - Prior to the procedure, a History and Physical was performed, and patient medications and allergies were reviewed. The patient is competent. The risks and benefits of the procedure and the sedation options and risks were discussed with the patient. All questions were answered and informed consent was obtained. Patient identification and proposed procedure were verified by the physician in the pre-procedure area. Mental Status Examination: alert and oriented. Airway Examination: normal oropharyngeal airway and neck mobility. Respiratory Examination: clear to auscultation. CV Examination: normal. Prophylactic Antibiotics: The patient does not require prophylactic antibiotics. Prior Anticoagulants: The patient has taken no anticoagulant or antiplatelet agents except for NSAID medication. ASA Grade Assessment: II - A patient with mild systemic disease. After reviewing the risks and benefits, the patient was deemed in satisfactory condition to undergo the procedure. The anesthesia plan was to use monitored anesthesia care (MAC). Immediately prior to administration of medications, the patient was re-assessed for adequacy to receive sedatives. The heart rate, respiratory rate, oxygen saturations, blood pressure, adequacy of pulmonary ventilation, and response to care were monitored throughout the procedure. The physical status of the patient was re-assessed after the procedure. After I obtained informed consent, the scope was passed under direct vision. Throughout the procedure, the patient's blood pressure, pulse, and oxygen saturations were monitored continuously. The adult colonoscope was introduced through the anus and advanced to the terminal ileum. The colonoscopy was performed without difficulty. The patient tolerated the procedure well. The quality of the bowel preparation was adequate. The ileocecal valve, appendiceal orifice, and rectum were photographed. Scope In: 12:52:23 PM Scope Withdrawal Time 0 hours 13 minutes 15 seconds Scope Out: 1:18:07 PM Total Procedure Duration Time 0 hours 25 minutes 44 seconds Findings: The perianal and digital rectal examinations were normal. A 10 mm polyp was found in the splenic flexure. The polyp was sessile. The polyp was removed with a hot snare. Resection and retrieval were complete. Verification of patient identification for the specimen was done. Estimated blood loss was minimal. Multiple small-mouthed diverticula were found in the recto-sigmoid colon, sigmoid colon, descending colon and ascending colon. A few five mm ulcers were found in the rectum. No bleeding was present. Stigmata of recent bleeding were present. Biopsies were taken with a cold forceps for histology. Verification of patient identification for the specimen was done. Estimated blood loss was minimal. Impression: - One 10 mm polyp at the splenic flexure, removed with a hot snare. Resected and retrieved. - Diverticulosis in the recto-sigmoid colon, in the sigmoid colon, in the descending colon and in the ascending colon. - A few ulcers in the rectum. Biopsied. Recommendation: - Discharge patient to home. - Resume previous diet. - Continue present medications. - Await pathology results. - Repeat colonoscopy in 3 years for surveillance. Procedure Code(s): --- Professional --- 84762, Colonoscopy, flexible; with removal of tumor(s), polyp(s), or other lesion(s) by snare technique 54683, 59, Colonoscopy, flexible; with biopsy, single or multiple CPT copyright 2021 [employer]. All rights reserved. The codes documented in this report are preliminary and upon commercial underwriter review may be revised to meet current compliance requirements. Kevin Gonzalez DO 04/22/2025 1:28:27 PM This report has been signed electronically. Number of Addenda: 0 Note Initiated On: 04/22/2025 12:37 PM
--- NOTE | 2025-04-22 13:29 | OP.CCLET_ITS ---
04/22/2025 Daron Benton [address] [place] [address] Re : Colonoscopy procedure for Angélica Yo Dear Dr. Benton This procedure was performed on Tuesday, April 22, 2025. My impressions and recommendations are as follows: Impressions : - One 10 mm polyp at the splenic flexure, removed with a hot snare. Resected and retrieved. - Diverticulosis in the recto-sigmoid colon, in the sigmoid colon, in the descending colon and in the ascending colon. - A few ulcers in the rectum. Biopsied. Recommendations : - Discharge patient to home. - Resume previous diet. - Continue present medications. - Await pathology results. - Repeat colonoscopy in 3 years for surveillance. My findings are described in the full procedure note, which is enclosed. If I can be of further assistance, please feel free to contact me at . Sincerely, Kevin Gonzalez, 04/22/2025 1:28:27 PM This report has been signed electronically.
--- NOTE | 2025-04-22 13:29 | PCM.POST.ANE ---
Anesthesia: Postop Eval I Current Vital Signs Temperature: 98.1 F Pulse Rate: 109 Blood Pressure: 132/64 Respiratory Rate: 16 Pulse Ox: 99 Oxygen Delivery Method: Room Air Assessment Airway patent: Yes Spontaneous unlabored respirations: Yes Mental status: Awake nausea: No Vomiting: No Anesthesia Complication: No Fluid Hydration Crystalloid volume administer (ml): 900 Total IV fluid infused: 900 Progress Note Anesthesia document: Postop Eval 1 completed: Yes
--- NOTE | 2025-04-22 14:11 | PCM.DC.SUM ---
Providers Date of Admission: 04/18/25 Primary Care Physician: Dr. Daron Benton MD Consultations 04/19/25 08:12 Consult: Gastroenterology Routine Consulting Provider: [facility] Reason for Consult: GI Bleed EMERGENT Consult: No MD Notified: Yes Date Notified: 04/19/25 Time Notified: 08:54 Method of Notification: Text Comments:: MARIANA Cardona notified. Reason For Visit: SYMPTOMATIC ANEMIA Diagnosis Discharge Diagnosis (1) Symptomatic anemia: Status: Acute Code(s): D64.9 - Anemia, unspecified Plan Patient is a 68-year-old lady presented with fatigue found to be anemic with hemoglobin of 7.3. 1. Symptomatic anemia ? Suspected to be secondary to chronic GI bleed exacerbated by the use of systemic anticoagulant?apixaban. Patient is on apixaban for systemic anticoagulation for A-fib. Patient hemoglobin on admission was 7.3. Patient hemoglobin did drop to 6.3 and order was given for patient to be transfused 1 unit PRBC. 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 Subsequent monitoring with daily H&H ordered consult placed to GI ? 04/20/2025; patient hemoglobin up to 10.6. Patient was kept n.p.o. pending GI evaluation ? 04/21/2025; patient underwent EGD the day prior findings and recommendations as below ?Impressions : - Normal esophagus. - No gross lesions in the entire stomach. 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 Treated with a heater probe. - No specimens collected. Recommendations : - [facility] patient to [facility] for [facility] care. - Full liquid diet. - Continue present medications. -Plan is for patient to complete her evaluation with a colonoscopy. Patient is however refusing to drink the prep she also refused NG. Hgb down to 9.4 Patient colonoscopy performed demonstrated One 10 mm polyp at the splenic flexure, removed with a hot snare. Resected and retrieved. - Diverticulosis in the recto-sigmoid colon, in the sigmoid colon, in the descending colon and in the ascending colon. - A few ulcers in the rectum. Biopsied. Recommendation: - Discharge patient to home. - Resume previous diet. - Continue present medications. - Await pathology results. - Repeat colonoscopy in 3 years for surveillance. 2. Paroxysmal A-fib ? Rate controlled on systemic anticoagulation with apixaban held given her presentation ? Patient apixaban held for a week on discharge 3.. Hypertension - Blood pressure controlled, home medications continued with dose adjustment as needed 4. Multiple sclerosis ? Per history patient is on baclofen for muscle relaxation 5. Hypothyroidism ? Patient is on levothyroxine did continue with home dose 6. Peripheral arterial disease ? With history of bilateral carotid artery stenosis, peripheral vascular occlusive disease. Patient was on systemic anticoagulation with apixaban held given about reasons 7. Dyslipidemia ?Patient is on statin therapy, continued at home dose 8. DVT prophylaxis ? Patient is on apixaban held 9. Chronic pain syndrome ? Restarted patient home pain regimen Medications at Discharge Home Medications gabapentin 800 mg tablet 800 mg PO TID MS 07/16/18 baclofen 20 mg tablet 20 mg PO Q6H MS 08/11/21 levothyroxine 50 mcg tablet 50 mcg PO DAILY thyroid 08/11/21 oxycodone 10 mg tablet 10 mg PO Q6H PRN pain 05/24/23 dextromethorphan-guaifenesin ER 60 mg-1,200 mg tab,extend release,12hr (Mucinex DM) 1 tab PO Q12H PRN cough/congest 02/19/24 famotidine 40 mg tablet 40 mg PO QDAY PRN indigestion 11/24/24 lisinopril 10 mg tablet 10 mg PO BID blood pressure 11/24/24 aspirin 81 mg tablet,delayed release 81 mg PO BREAKFAST heart health #30 tabs 12/11/24 amlodipine 5 mg tablet (Norvasc) 2.5 mg (1/2 x 5 mg) PO QDAY bp #90 tabs 01/13/25 carvedilol 3.125 mg tablet 3.125 mg PO BIDCM heart #180 tabs 03/03/25 apixaban 5 mg tablet (Eliquis) 5 mg PO Q12H anticoagulation #180 tabs 03/09/25 Held on 04/22/25. Instructions: Resume on 04/28/25. cholecalciferol (vitamin D3) 125 mcg (5,000 unit) capsule 125 mcg PO DAILY supplement 04/18/25 docusate sodium 100 mg capsule (Colace) 100 mg PO BID stool softener 7 days #14 caps 04/18/25 doxepin 10 mg/mL oral concentrate 5 - 10 mg PO QHS 04/18/25 ipratropium bromide 42 mcg (0.06 %) nasal spray 2 spray intranasal TID PRN allergy symptoms 04/18/25 naloxegol 25 mg tablet (Movantik) 25 mg PO DAILY 30 days #30 tabs 04/18/25 rosuvastatin 10 mg tablet 10 mg PO QHS hld 04/18/25 pantoprazole 40 mg tablet,delayed release (Protonix) 40 mg PO DAILY 90 days #90 tabs 04/22/25 polysaccharide iron complex 150 mg iron capsule (Ferrex) 150 mg PO DAILY 90 days #90 caps 04/22/25 potassium chloride 20 mEq/15 mL oral liquid 20 meq (15 mL) PO DAILY 30 days #450 mL 04/22/25 Hospital Course Summary of Care Provided Minutes Spent on Discharge: 38 Physical Exam Narrative GENERAL: cooperative HEENT: Atraumatic; normocephalic EYES; Anicteric, pallor of the conjunctiva NECK; supple, normal thyroid, RESPIRATORY: Diminished to auscultation CARDIOVASCULAR: Regular S1 S2, GI: soft, normoactive bowel sounds, : No Renal angle tenderness; EXTREMITIES: No edema, no clubbing, MUSCULOSKELETAL: no muscle wasting NEURO: Awake; no lateralizing signs. SKIN: No Rash PSYCH; Flat affect Weight / BMI Weight Weight: 45.7 kg Body Mass Index (BMI) 16.7 ABG / Lab / Microbiology Data 04/22/25 05:15 04/22/25 05:15 Laboratory: Laboratory Results - last 24 hr 04/22/25 05:15: WBC 7.1, RBC 3.51 L, Hgb 9.4 L, Hct 29.2 L, MCV 83.2, MCH 26.8 L, MCHC 32.2, RDW Std Deviation 52.6 H, RDW Coeff of David 17.5 H, Plt Count 152, MPV 9.7, Sodium 137, Potassium 3.8, Chloride 107, Carbon Dioxide 18.8 L, Anion Gap 12, BUN 8, Creatinine 1.08, Estim Creat Clear Calc 34.97 L, Est GFR (MDRD) Non-Af 55 L, BUN/Creatinine Ratio 7.0 L, Glucose 89, Calcium 8.3 Microbiology: Microbiology 04/21/25 10:00 Stool Stool Occult Blood (CARMEN) - Final Occult Blood Positive D/C Instructions Discharge Diet: No restrictions Discharge Activity: Return to Normal Activity Call your doctor if you observe: Fever of 101 or Higher, Shortness of breath, Fainting spells and Chest pain DC O2, CPAP, BIPAP Needs Home O2 Discharge instructions: No Meaningful Use Info Meaningful Use Meaningful Use Diagnoses (Choose all that apply): None applicable Ischemic Stroke Statin Dosing Therapy Reference: STATIN DOSE THERAPY REFERENCE: * Patients > 75 years receive moderate or high dose statin therapy. * Patients 75 years or YOUNGER should receive HIGH intensity statin dose unless contraindicated. You will be required to document reason for non-treatment if statin daily dose does not meet guidelines. HIGH DOSE STATIN THERAPY DAILY Atorvastatin > than or = to 40 mg Rosuvastatin > than or = to 20 mg Amlodipine + Atorvastatin > than or = to 2.5/40 mg Ezetimibe + Simvastatin 10/80 mg Simvastatin 80mg Discharge Plan Admission Admit Date/Time: 04/18/25 21:20 Attending Provider: Roman Mckeon Primary Care Provider: Daron Benton Consulting Providers: Sachin Murillo Discharge Orders/Prescriptions Prescriptions: New polysaccharide iron complex [Ferrex 150] 150 mg iron Capsule 150 mg PO DAILY 90 Days Qty: 90 0RF potassium chloride 20 mEq/15 mL Liquid 20 meq PO DAILY 30 Days Qty: 450 0RF pantoprazole [Protonix] 40 mg tablet,delayed release (DR/EC) 40 mg PO DAILY 90 Days Qty: 90 0RF Continued gabapentin 800 mg tablet 800 mg PO TID baclofen 20 mg tablet 20 mg PO Q6H levothyroxine 50 mcg tablet 50 mcg PO DAILY Patient Comments: take 1 tablet by mouth once daily oxycodone 10 mg tablet 10 mg PO Q6H PRN Patient Comments: take 1 tab q6 PRN for pain famotidine 40 mg tablet 40 mg PO QDAY PRN (Reason: indigestion) lisinopril 10 mg tablet 10 mg PO BID dextromethorphan-guaifenesin [Mucinex DM] 60-1,200 mg tablet extended release 12 hr 1 tab PO Q12H PRN (Reason: cough/congest) doxepin 10 mg/mL concentrate 5 - 10 mg PO QHS cholecalciferol (vitamin D3) 125 mcg (5,000 unit) capsule 125 mcg PO DAILY rosuvastatin 10 mg tablet 10 mg PO QHS ipratropium bromide 42 mcg (0.06 %) spray,non-aerosol 2 spray intranasal TID PRN (Reason: allergy symptoms) Rx Instructions: administer into each nostril aspirin 81 mg Tablet,Delayed Release (Dr/Ec) 81 mg PO BREAKFAST Qty: 30 2RF amlodipine [Norvasc] 5 mg tablet 2.5 mg PO QDAY Qty: 90 3RF docusate sodium [Colace] 100 mg capsule 100 mg PO BID 7 Days Qty: 14 0RF Movantik 25 mg tablet 25 mg PO DAILY 30 Days Qty: 30 0RF Rx Instructions: must be taken on empty stomach; no food 1 hr after or 2-3 hrs before dose carvedilol 3.125 mg tablet 3.125 mg PO BIDCM Qty: 180 3RF Held Eliquis 5 mg tablet 5 mg PO Q12H Qty: 180 3RF Hold Instructions: Resume on 04/28/25. Referrals / Follow Up: Daron eBnton MD [Primary Care Provider] - Within 1 Week Disposition Disposition (needs filled in before D/C Order can be placed): Home Health Service Charges/Coding Visit Charges Inpatient E&M: 39537 Disch Hosp >30min
[2025-04-22] MEDS: Gabapentin 800 MG Tablet PO (14:57)
[2025-04-22] MEDS: Potassium Chloride Oral Soln 20 MEQ/15 ML UDC PO (15:34)
[2025-04-22] MEDS: Acetaminophen 325 MG Tablet 650 MG PO (15:38)
--- NOTE | 2025-04-22 15:59 | PHA.DC_ITS ---
Pharmacy [facility] Counseling Pharmacy Service has performed discharge medication reconciliation and counseling for this patient. 1. PANTOPRAZOLE 40MG PO DAILY 2. FERREX 150MG PO DAILY 3. POTASSIUM CHLORIDE 20MEQ/15ML SOLUTION 20MEQ PO DAILY 4. RESUME ELIQUIS 04/28 The patient's discharge medication list was reviewed for discrepancies and discrepancies were resolved. The patient was counseled on the following discharge medications and changes in medications for homegoing were reviewed. The Reason for Use, instructions for use, and potential side effects were reviewed for all new medications. The patient's questions regarding all of their medications were answered. The patient was able to verbally demonstrate an understanding of their discharge medications. Medications at Discharge Home Medications gabapentin 800 mg tablet 800 mg PO TID MS 07/16/18 baclofen 20 mg tablet 20 mg PO Q6H MS 08/11/21 levothyroxine 50 mcg tablet 50 mcg PO DAILY thyroid 08/11/21 oxycodone 10 mg tablet 10 mg PO Q6H PRN pain 05/24/23 dextromethorphan-guaifenesin ER 60 mg-1,200 mg tab,extend release,12hr (Mucinex DM) 1 tab PO Q12H PRN cough/congest 02/19/24 famotidine 40 mg tablet 40 mg PO QDAY PRN indigestion 11/24/24 lisinopril 10 mg tablet 10 mg PO BID blood pressure 11/24/24 aspirin 81 mg tablet,delayed release 81 mg PO BREAKFAST heart health #30 tabs 12/11/24 amlodipine 5 mg tablet (Norvasc) 2.5 mg (1/2 x 5 mg) PO QDAY bp #90 tabs 01/13/25 carvedilol 3.125 mg tablet 3.125 mg PO BIDCM heart #180 tabs 03/03/25 apixaban 5 mg tablet (Eliquis) 5 mg PO Q12H anticoagulation #180 tabs 03/09/25 Held on 04/22/25. Instructions: Resume on 04/28/25. cholecalciferol (vitamin D3) 125 mcg (5,000 unit) capsule 125 mcg PO DAILY supplement 04/18/25 docusate sodium 100 mg capsule (Colace) 100 mg PO BID stool softener 7 days #14 caps 04/18/25 doxepin 10 mg/mL oral concentrate 5 - 10 mg PO QHS 04/18/25 ipratropium bromide 42 mcg (0.06 %) nasal spray 2 spray intranasal TID PRN allergy symptoms 04/18/25 naloxegol 25 mg tablet (Movantik) 25 mg PO DAILY 30 days #30 tabs 04/18/25 rosuvastatin 10 mg tablet 10 mg PO QHS hld 04/18/25 pantoprazole 40 mg tablet,delayed release (Protonix) 40 mg PO DAILY 90 days #90 tabs 04/22/25 polysaccharide iron complex 150 mg iron capsule (Ferrex) 150 mg PO DAILY 90 days #90 caps 04/22/25 potassium chloride 20 mEq/15 mL oral liquid 20 meq (15 mL) PO DAILY 30 days #450 mL 04/22/25
--- NOTE | 2025-04-22 17:47 | PCM.PN.BLA ---
Progress Note Patient is doing well today. She has not had any signs of GI bleeding overnight. She is status post EGD and colonoscopy. Physical Exam Narrative GENERAL: cooperative HEENT: Atraumatic; normocephalic EYES; Anicteric, pallor of the conjunctiva NECK; supple, normal thyroid, RESPIRATORY: Diminished to auscultation CARDIOVASCULAR: Regular S1 S2, GI: soft, normoactive bowel sounds, : No Renal angle tenderness; EXTREMITIES: No edema, no clubbing, MUSCULOSKELETAL: no muscle wasting NEURO: Awake; no lateralizing signs. SKIN: No Rash PSYCH; Flat affect Assessment & Plan Assessment/Plan (1) Symptomatic anemia: PLAN: Plan Patient is a 69-year-old lady presented with fatigue found to be anemic with hemoglobin of 7.3. She is on anticoagulation with Eliquis for atrial fibrillation. Hemoglobin is up after blood transfusion. She was explained alternatives, risk and benefits include not withstanding bleeding, infection, sepsis, perforation, need for more surgery . She will have an ASA of 3. 04/21/2025.-Patient underwent an upper endoscopy yesterday and no etiology of GI bleed was seen. She was supposed to get prep for a colonoscopy last night. However she can not tolerate NG tube placement and could not tolerate the prep. We will place NG tube and order endoscopy today. And then she can take the tube after her prep is complete. 04/22/2025-patient will have colonoscopy today. Patient was explained alternatives, risk and benefits include not withstanding bleeding, pressure, sepsis, perforation, need for more transient . She will have an ASA of 3. Findings: The perianal and digital rectal examinations were normal. A 10 mm polyp was found in the splenic flexure. The polyp was sessile. The polyp was removed with a hot snare. Resection and retrieval were complete. Verification of patient identification for the specimen was done. Estimated blood loss was minimal. Multiple small-mouthed diverticula were found in the recto-sigmoid colon, sigmoid colon, descending colon and ascending colon. A few five mm ulcers were found in the rectum. No bleeding was present. Stigmata of recent bleeding were present. Biopsies were taken with a cold forceps for histology. Verification of patient identification for the specimen was done. Estimated blood loss was minimal. Impression: - One 10 mm polyp at the splenic flexure, removed with a hot snare. Resected and retrieved. - Diverticulosis in the recto-sigmoid colon, in the sigmoid colon, in the descending colon and in the ascending colon. - A few ulcers in the rectum. Biopsied. Recommendation: - Discharge patient to home. - Resume previous diet. - Continue present medications. - Await pathology results. - Repeat colonoscopy in 3 years for surveillance. Differential diagnosis does include ulcerative proctitis. She will need to follow-up in the clinic for further workup Visit Charges Inpatient E&M: 89892 [facility] Hosp L3
== END 2025-04-22 17:45 | disposition home health service (06) | DRG 378 ==
LOC: ED 21:13 → MS3 21:50
PROVIDERS: Internal Medicine Gastroenterology; Admitting Provider Family Medicine; Emergency Provider Emergency Medicine; PCP Family Medicine; Referring Provider Family Medicine; Visit Provider Internal Medicine
PROC: 0DJ08ZZ Inspection of Upper Intestinal Tract, Via Natural or Artificial Opening Endoscopic (ICD-10-PCS; CPT 43235; principal; 2025-04-20 09:55)
PROC: 0DJD8ZZ Inspection of Lower Intestinal Tract, Via Natural or Artificial Opening Endoscopic (ICD-10-PCS; CPT 45378; principal; 2025-04-22 11:55)
DX: K57.31 Diverticulosis of large intestine without perforation or abscess with bleeding (principal); D68.32 Hemorrhagic disorder due to extrinsic circulating anticoagulants; D62 Acute posthemorrhagic anemia; K62.6 Ulcer of anus and rectum; I50.811 Acute right heart failure; G35 Multiple sclerosis; I48.0 Paroxysmal atrial fibrillation; I11.0 Hypertensive heart disease with heart failure; E89.0 Postprocedural hypothyroidism; I73.9 Peripheral vascular disease, unspecified; K31.819 Angiodysplasia of stomach and duodenum without bleeding; E78.5 Hyperlipidemia, unspecified; F17.200 Nicotine dependence, unspecified, uncomplicated; I25.10 Atherosclerotic heart disease of native coronary artery without angina pectoris; D12.3 Benign neoplasm of transverse colon; K62.1 Rectal polyp; I25.2 Old myocardial infarction; K59.03 Drug induced constipation; W18.30XA Fall on same level, unspecified, initial encounter; G89.4 Chronic pain syndrome; T45.515A Adverse effect of anticoagulants, initial encounter; Z95.5 Presence of coronary angioplasty implant and graft; Z79.01 Long term (current) use of anticoagulants; Z79.890 Hormone replacement therapy; Z79.899 Other long term (current) drug therapy; Z86.73 Personal history of transient ischemic attack (TIA), and cerebral infarction without residual deficits
CPT/HCPCS: 36415; 70450; 74022; 80048; 80053; 82274; 82728; 82962; 83540; 83550; 83605; 83690; 83735; 84100; 84443; 84484; 85014; 85018; 85025; 85027; 86850; 86900; 86901; 88305; 93005; 99285; C1889; P9016; A4216; J2405

== ENCOUNTER → 2025-05-15 | Outpatient (CLI) | payer MEDICARE, MEDICAID, SELFPAY ==
--- NOTE | 2025-05-15 12:16 | CT_ITS ---
PROCEDURE: CTA NECK W/WO CONTRAST 05/15/2025 REASON FOR EXAM: CAROTID STENOSIS/STROKE/SUBCLAVIAN STENOSIS TECHNIQUE: CTA NECK W/WO CONTRAST Multiplanar Sagittal and Coronal images were obtained. One or more dose reduction techniques were used (e.g., Automated exposure control, adjustment of the mA and/or kV according to patient size, use of iterative reconstruction technique). CTA NECK W/WO CONTRAST Multiplanar Sagittal and Coronal images were obtained. 3D post processing was performed CONTRAST: Isovue 370 VOLUME: 100 mL RADIATION DOSE SUMMARY: CTDlvol: 18.5 mGy DLP: 352.81 mGycm COMPARISON: Prior study dated March 26, 2024. FINDINGS: Aortic Arch: Normal size and branching pattern. Mild atherosclerotic plaque. Brachiocephalic and Subclavians: Mild atherosclerotic plaque without significant stenosis. RIGHT Carotid: Right CCA: Mild calcified and soft plaque. Right ICA: Mild calcified and soft plaque.. There is a graft between the right internal carotid artery and left internal carotid artery. Maximum stenosis (NASCET): <20% % Right ECA: Unremarkable LEFT Carotid: Left CCA: Mild calcified and soft plaque. Left ICA: High-grade stenosis. Maximum stenosis (NASCET): Greater than 90 %. Left ECA: Unremarkable Vertebrals: Codominant. RIGHT Vertebral: Unremarkable LEFT Vertebral: Unremarkable Other findings: CT/CTA Neck W/WO Contrast IMPRESSION: Status post grafting between the right internal and left internal carotid arter y. Tight stenosis at the origin of left internal carotid artery proximal to the an astomosis. Reading Location: [facility]
[2025-05-15 18:39] LABS: Absolute Lymphocyte Count 1.09 X10^3/uL (0.83-4.51); Absolute Neutrophil Count 5.9 X10^3/uL (2.0-7.7); Basophil# 0.07 X10^3/uL; Basophil% 0.8 % (0-1); Eosinophil# 0.78 X10^3/uL; Eosinophils% 9.3 % (0-5); Hematocrit 24.4 % (37-47); Hemoglobin 7.4 g/dL (12.0-15.0); Lymphocyte # 1.09 X10^3/ul (0.83-4.51); Mean Corp Hgb Conc 30.3 g/dL (32-36); Mean Corpuscular Hgb 26.5 pg (27.0-32.0); Mean Corpuscular Volume 87.5 fL (81-99); Mean Platelet Vol. 10.9 fl (6.2-12.0); Monocyte% 5.9 % (0-10); NRBC Flagged by Analyzer 0 % (0-5); Neutrophil # 5.92 X10^3/uL (2.7-7.7); Neutrophil % 70.4 % (47-70); POSITIVE MORPHOLOGY YES; Platelet Count 213 K/mm3 (150-450); RBC Distribution Width CV 19.3 % (11.6-14.6); RBC Distribution Width SD 61.2 fl (35.1-43.9); RET-HE 25.2 pg (30-35); Red Blood Count 2.79 M/mm3 (4.2-5.4); Reticulocyte Count 4.47 % (0.5-1.5); White Blood Count 8.4 K/mm3 (4.4-11.0)
[2025-05-15 18:46] LABS: Differential Indicated SCAN CRITERIA MET
[2025-05-15 18:54] LABS: ALB/GLOB Ratio 1.7 RATIO (0.9-2.4); AST(SGOT) 23 U/L (<=31); Alanine Aminotransfer ALT/SGPT 14 U/L (<=34); Albumin, Serum 3.9 g/dL (3.4-4.8); Alkaline Phosphatase 102 U/L (35-104); Anion Gap 11 (5-15); BUN 26 mg/dL (4-19); BUN/Creat Ratio 22.7 RATIO (10-20); Calcium,Total 9.1 mg/dL (7.6-11.0); Chloride 100 mmol/L (98-108); Creatinine, Serum 1.13 mg/dL (0.70-1.20); EST Glomerular Filtration Rate 52 (>60); Ferritin 19 ng/mL (22-378); Free T3 2.7 pg/mL (2.18-3.98); Globulin 2.3 g/dL (2.2-4.2); Glucose 105 mg/dL (70-99); Iron 48 ug/dL (50-170); Iron Binding Capacity,Total 379 ug/dL (250-450); Iron Binding Capacity,Unsat 331 ug/dL (228-428); Potassium 4.5 mmol/L (3.3-5.1); Protein, Total 6.2 g/dL (5.9-8.4); Sodium Level 136 mmol/L (133-145); Total Bilirubin 0.18 mg/dL (0.00-1.30); Vitamin B12 366 pg/mL (180-914)
[2025-05-15 18:58] LABS: FOLATES,SERUM (FOLIC ACID) 8.24 ng/mL (4.60-34.80)
[2025-05-15 21:38] LABS: Differential Comment SCANNED
[2025-05-15 21:39] LABS: Anisocytosis 1+; Hypochromasia 1+; Platelet Estimate ADEQUATE (ADEQ); Polychromasia 1+
[2025-05-18 15:08] LABS: Thyroglobulin Antibody < 1.0 IU/mL (0.0-0.9); Thyroid Peroxidase AB < 9 IU/mL (0-34)
== END | disposition home or self-care (01) ==
PROVIDERS: PCP Family Medicine; Referring Provider Surgery Vascular Surgery; Visit Provider Surgery Vascular Surgery
DX: I65.23 Occlusion and stenosis of bilateral carotid arteries (principal); G35 Multiple sclerosis; I74.09 Other arterial embolism and thrombosis of abdominal aorta; I77.1 Stricture of artery; I70.1 Atherosclerosis of renal artery; F17.200 Nicotine dependence, unspecified, uncomplicated; I70.213 Atherosclerosis of native arteries of extremities with intermittent claudication, bilateral legs; I25.10 Atherosclerotic heart disease of native coronary artery without angina pectoris; I10 Essential (primary) hypertension; E03.9 Hypothyroidism, unspecified; E78.5 Hyperlipidemia, unspecified; R00.2 Palpitations; Z86.73 Personal history of transient ischemic attack (TIA), and cerebral infarction without residual deficits; Z82.3 Family history of stroke; D64.9 Anemia, unspecified
CPT/HCPCS: 70498; 80053; 82607; 82728; 82746; 83540; 83550; 84439; 84443; 84481; 85025; 85045; 86376; 86800; Q9967

== ENCOUNTER 2025-05-19 20:45 | Emergency (ER) | payer MEDICARE, MEDICAID, SELFPAY ==
[2025-05-19 20:46] VITALS: BP 140/58; PULSE 79; RESP 14; TEMP 36.8; O2SAT 98
[2025-05-19 22:26] VITALS: BMI 17.8
--- OUTSIDE RECORDS SUMMARY | 2025-05-19 23:15 | XMS RPT_ITS | CCD ---
Author Organization [facility]iniSyn[facility] Care Team Providers Care Electroplater Automatic Name Role Phone YOGESH ONOFRE Unavailable Unavailabl e ZHANE PARRA Unavailable Unavailable YOGESH ONOFRE Unavailable Unavailable ZHANE DE Unavailable Unavailable GEOVANI DEA Janett Unavailable Unavailable Dr. Daron Benton Primary Care Provider [phone] Daron Benton Referring Provider Dr. Kai Jacobson Attending Provider 1([facility])[phone] MARIANA Davenport Attending Provider Dr. Daron Benton Primary Care Provider 1([facility])[phone] Daron Benton Referring Provider 1([facility])[phone] Daron Benton Primary Care Provider [phone] Daron Benton Referring Provider 1([facility])[phone] MARIANA Davenport Attending Provider Dr. Daron Benton Primary Care Provider 1([facility])[phone] Daron Benton Referring Provider 1([facility])[phone] Kai Jacobson Attending Provider 1([facility])[phone] MARIANA Davenport Attending Provider Dr. Orlando Jacob Attending Provider Dr. Daron Benton Primary Care Provider [phone] Daron Benton Referring Provider Dr. Kai Jacobson Attending Provider MARIANA Davenport Attending Provider Dr. Orlando Jacob Attending Provider 1([facility])[phone] Daron Benton Primary Care Provider Dr. Daron Benton Referring Provider Dr. Kai Jacobson Attending Provider Dr. Daron Benton Primary Care Provider Dr. Orlando Jacob Attending Provider Dr. Daron Benton Primary Care Provider Dr. Daron Benton Referring Provider Dr. Kai Jacobson Attending Provider Dr. Gilles Jasso Attending Provider Dr. Daron Benton Primary Care Provider Dr. Daron Benton Referring Provider Dr. Kai Jacobson Attending Provider Daron Benton Primary Care Provider Dr. Daron Benton Primary Care Provider Dr. Daron Benton Referring Provider Dr. Gilles Jasso Attending Provider Dr. Orlando Jacob Attending Provider Dr. Daron Benton Primary Care Provider Dr. Daron Benton Referring Provider Katia Chi Attending Provider Unavailable Dr. Daron Benton Primary Care Provider Dr. Daron Benton Referring Provider Katia Chi Attending Provider Unavailable Dr. Kai Jacobson Attending Provider Lexa PEÑA, PA Betsey Cheema Attending Provider Dr. Michele Kebede Emergency Provider Dr. Sommer Resendiz Admit Provider Dr. Sommer Resendiz Other Provider Dr. Hi Garcia Attending Provider Dr. Hi Garcia Other Provider Dr. Sachin Murillo Attending Provider Dr. Sachin Murillo Other Provider Dr. Dangelo Galalrdo Attending Provider Dr. Daron Benton Primary Care Provider Dr. Daron Benton Referring Provider Katia Chi Attending Provider Unavailable Dr. Kai Jacobson Attending Provider Lexa PA, PA Betsey Cheema Attending Provider Dr. Michele Kebede Emergency Provider Dr. Sommer Resendiz Admit Provider Dr. Sommer Resendiz Other Provider Dr. Hi Garcia Attending Provider Dr. Hi Garcia Other Provider Dr. Sachin Murillo Attending Provider Dr. Sachin Murillo Other Provider Dr. Dangelo Gallardo Attending Provider Dr. Gabriella Simpson Emergency Provider Dr. Roman Mckeon Admit Provider Unavailable Dr. Roman Mckeon Attending Provider Unavailable Dr. Roman Mckeon Other Provider Unavailable MD Kt Friend Other Provider Unavailable Dr. Ruby Wynn Other Provider MD Angie Shields Other Provider Unavailable Dr. Jo Ann Krishnmaurthy Other Provider Dr. Kiley Carpenter Other Provider Dr. Johnny Sepulveda Other Provider Dr. Nikole Allison Other Provider Dr. Gerald Suh Other Provider Dr. Kristopher Hernández Other Provider MD Arleen Estrada Other Provider Dr. Silvino Schmidt Other Provider Dr. Rima Riggins Other Provider Dr. Sarkis Brown Other Provider Dr. Simon Tellez Other Provider Dr. Michele Rascon Other Provider Dr. Kirsten Azevedo Other Provider Dr. Joseph Desai Other Provider Dr. Samina Mortensen Other Provider Unavailable MD Keyona Davidson Other Provider Unavailable Dr. Daniel Edmonds Other Provider Dr. Isaias Scherer Other Provider Dr. Jorge Hurtado Attending Provider Dr. Jorge Hurtado Other Provider Dr. Brandon Gaming Other Provider Dr. Anita Amezcua Other Provider Dr. Pamela Pan Other Provider Unavailable Dr. Go Alejo Other Provider Dr. Jesus Alfonso Other Provider Dr. Kehinde Inman Other Provider Dr. Mendez Oviedo Other Provider [phone] MD Deepika Graham Other Provider MS Maurilio Garland Other Provider MD Phil Terry Other Provider [phone] MD SARI MENA Other Provider MD Jose Santos Other Provider MD Rhiannon Farris Other Provider TYE BARNETT MD Attending Unavailable Dr. Daron Benton Primary Care Provider Dr. Daron Benton Referring Provider Dr. Sachin Murillo Referring Provider Dr. Daron Benton Primary Care Provider Dr. Daron Benton Referring Provider Dr. Kai Jacobson Attending Provider Lexa PEÑA, PA Betsey Cheema Attending Provider Dr. Michele Kebede Emergency Provider Dr. Sommer Resendiz Admit Provider Dr. Sommer Resendiz Other Provider Dr. Hi Garcia Attending Provider Dr. Hi Garcia Other Provider Dr. Sachin Murillo Attending Provider Dr. Sachin Murillo Other Provider Dr. Dangelo Gallardo Attending Provider Dr. Gabriella Simpson Emergency Provider Dr. Roman Mckeon Admit Provider Unavailable Dr. Roman Mckeon Attending Provider Unavailable Dr. Rmoan Mckeon Other Provider Unavailable MD Kt Friend Other Provider Unavailable Dr. Ruby Wynn Other Provider MD Angie Shields Other Provider Unavailable Dr. Jo Ann Krishnamurthy Other Provider Dr. Kiley Carpenter Other Provider Dr. Johnny Sepulveda Other Provider Dr. Nikole Allison Other Provider Dr. Gerald Suh Other Provider Dr. Kristopher Hernández Other Provider MD Arleen Estrada Other Provider Dr. Silvino Schmidt Other Provider Dr. Rima Riggins Other Provider Dr. Sarkis Brown Other Provider [phone] Simon Tellez Other Provider Dr. Michele Rascon Other Provider Dr. Kirsten Azevedo Other Provider Dr. Joseph Desai Other Provider Dr. Samina Mortensen Other Provider Unavailable MD Keyona Davidson Other Provider Unavailable Dr. Sachin Murillo Referring Provider Dr. Daniel Edmonds Other Provider Dr. Isaias Scherer Other Provider Dr. Jorge Hurtado Attending Provider Dr. Jorge Hurtado Other Provider Dr. Brandon Gaming Other Provider Dr. Anita Amezcua Other Provider Dr. Pamela Pan Other Provider Unavailable Dr. Go Alejo Other Provider Dr. Jesus Alfonso Other Provider Dr. Kehinde Inman Other Provider Dr. Mendez Oviedo Other Provider MD Deepika Graham Other Provider Dada, MS Maurilio Other Provider MD Phil Terry Other Provider MD SARI MENA Other Provider MD Jose Santos Other Provider MD Rhiannon Farris Other Provider Dr. Jeffy Willoughby Emergency Provider Dr. Daron Benton Primary Care Provider Dr. Daron Benton Referring Provider Lisa, Dr. Brown Attending Provider Dr. Eva Mortensen Attending Provider Dr. Eva Mortensen Other Provider Dr. Daron Benton Primary Care Provider Dr. Daron Benton Referring Provider Lexa PEÑA, MARIANA Cheema Attending Provider Dr. Roman Mckeon Referring Provider Unavailable Dr. Bhavik Smiley Attending Provider Dr. Bhavik Smiley Referring Provider Dr. Eva Mortensen Referring Provider Tye Barnett MD Unavailable Chetan FOX, Daron Santos Primary Care Provider Daron Benton Primary Care Provider Dr. Daron Benton MD Primary Care Provider Marni FOX, Nuno Emergency Provider Jayson FOX, Dr. Mena Admit Provider Jayson FOX, Dr. Mena Other Provider Husam FOX, Dr. Kirby Other Provider Shirley FOX, Dr. Neha Lewis Attending Provider Husam FOX, Dr. Kirby Attending Provider Dr. Trina Tyler MD Referring Provider Shirley FOX, Dr. Neha Lewis Other Provider Case FOX, Dr. Bardales Attending Provider Dr. Jeffy Willoughby MD Emergency Provider Dr. Daron Benton MD Referring Provider Betsey Davenport Attending Provider Linda HAMMOND, Negar Cheema Attending Provider Dr. Benjy Flores DO Referring Provider Dr. Benjy Flores DO Emergency Provider Martín FOX, Dr. Sommer Hebert Admit Provider Martín FOX, Dr. Sommer Hebert Other Provider Kati FOX, Dr. Strauss [facility]. Kowalski Attending Provider Kati FOX, Dr. Strauss Attending Provider [facility] , Dr. Kowalski Other Provider Baljit FOX, Dr. Mejia Attending Provider Chetan FOX, Dr. Neri Attending Provider Nidia FOX, Dr. Perry Attending Provider Nidia FOX, Dr. Perry Other Provider Betsey Davenport Referring Provider Nuno Grider MD Referring Provider Chetan FOX, Dr. Neri Primary Care Provider Chetan FOX, Dr. Neri Referring Provider Betsey Davenport Attending Provider Linda MENDOZA-C, Negar Cheema Attending Provider Dr. Benjy Flores DO Referring Provider Dr. Benjy Flores DO Emergency Provider Martín FOX, Dr. Sommer Hebert Admit Provider Martín FOX, Dr. Sommer Hebert Other Provider Kati FOX, Dr. Strauss [facility], Dr. Kowalski Attending Provider Shirley FOX, Dr. Neha Lewis Other Provider Kati FOX, Dr. Strauss Attending Provider Shirley FOX, Dr. Neha Lewis Attending Provider Husam FOX, Dr. Kirby Attending Provider Gm HERNANDEZ, Dr. Kowalski Other Provider Baljit FOX, Dr. Mejia Attending Provider Chetan FOX, Dr. Neri Attending Provider Nidia FOX, Dr. Perry Attending Provider Nidia FOX, Dr. Perry Other Provider Betsey Davenport Referring Provider Marni FOX, Nuno Attending Provider Marni FOX, Nuno Referring Provider Marni FOX, Nuno Emergency Provider Kingston FOX, Dr. Elmore Attending Provider Kingston FOX, Dr. Elmore Emergency Provider Ivy HERNANDEZ, Dr. Gruber Referring Provider Asaes , Dr. Gruber Emergency Provider Dr. Jeffy Willoughby MD Emergency Provider Lidia FOX, Dr. Sachin Prieto Admit Provider Ldiia FOX, Dr. Sachin Prieto Attending Provider Lidia FOX, Dr. Sachin Prieto Referring Provider Chetan FOX, Dr. Neri Primary Care Provider Chetan FOX, Dr. Neri Referring Provider Shirley FOX, Dr. Neha Lewis Other Provider Shirley FOX, Dr. Neha Lewis Attending Provider Husam FOX, Dr. Kirby Attending Provider Betsey Davenport Attending Provider Nuno Grider MD Attending Provider Marni FOX, Nuno Emergency Provider Kingston FOX, Dr. Elmore Attending Provider Kingston FOX, Dr. Elmore Emergency Provider Ivy HERNANDEZ, Dr. Gruber Referring Provider Ivy HRENANDEZ, Dr. Gruber Emergency Provider Case FOX, Dr. Bardales Emergency Provider Lidia FOX, Dr. Sachin Prieto Admit Provider Lidia FOX, Dr. Sachin Prieto Referring Provider Lidia FOX, Dr. Sachin Prieto Other Provider Linda FOX, Dr. Owens Attending Provider Unavaila ble Lidia FOX, Dr. Sachin Prieto Attending Provider Linda FOX, Dr. Owens Other Provider Unavailable Lisa HERNANDEZ, Dr. Brown Attending Provider Martín FOX, Dr. Sommer Hebert Attending Provider Chetan FOX, Dr. Neri Primary Care Provider Kati FOX, Dr. Strauss Other Provider Kati FOX, Dr. Strauss Attending Provider Chetan FOX, Dr. Neri Referring Provider Dr. Yasmani Haynes DO Attending Provider Kirk MENDOZA-CIona Attending Provider LIZZ LYNN Attending Unavailable BENTON, DARON Primary Care Unavailable LIZZ LYNN Attending Unavailable BENTON, DARON Primary Care Unavailable Benton, Daron Primary Care Unavailable Benton, Daron Consulting Unavailable Tye Barnett Attending Unavailable Tye Barnett Referring Unavailable Lizz Lynn Referring Unavailable Benton, Daron Primary Care Unavailable Lizz Lynn Attending Unavailable Carlos A Parikh Consulting Unavailable Benjy Flores Referring Unavailable Benton, Daron Primary Care Unavailable Dex Worrell Attending Unavailable Sommer Resendiz Admitting Unavailable Sommer Resendiz Consulting Unavailable Neha Watson Consulting Unavailable Sachin Murillo Admitting Unavailable Sachin Murillo Referring Unavailable Sachin Murillo Consulting Unavailable Benton, Daron Primary Care Unavailable Roman Mckeon Attending Unavailable Trina Tyler Admitting Unavailable Karenam, Neha Debbie Attending Unavailable Nagaabdifatah Nagapradee Consulting Unavailabl e Benton, Daron Primary Care Unavailable Jayson, Trina Consulting Unavailable Shirley, Neha Debbie Consulting Unavailable Betsey Davenport Attending Unavail able Benton, Daron Primary Care Unavailable Benton, Daron Referring Unavailable Negar Mckeon Attending Unavailable Benton, Daron Primary Care Unavailable Benton, Daron Referring Unavailable Benton, Daron Primary Care Unavailable Benton, Daron Referring Unavailable Betsey Davenport Attending Unavail able Benton, Daron Primary Care Unavailable Jorge Hurtado Attending Unavailable Brown, Jorge Referring Unavailable Kofi Weiner Attending Unavailabl e Benton, Daron Primary Care Unavailable Friend, Kevin Referring Unavailable Friend, Kevin Attending Unavailable Benton, Daron Primary Care Unavailable Benton, Daron Primary Care Unavailable Jeffy Willoughby Attending Unavailable Benton, Daron Primary Care Unavailable Yasmani Haynes Attending Unavailable Nuno Grider Attending Unavailable Nuno Grider Referring Unavailable Benton, Daron Primary Care Unavailable Benton, Daron Referring Unavailable Benton, Daron Primary Care Unavailable Benton, Daron Attending Unavailable Betsey Davenport Referring Unavail able Benton, Daron Primary Care Unavailable Nidia, Orlando Consulting Unavailable NidiaShahnaz mirzal Attending Unavailable Benton, Daron Primary Care Unavailable Tye Barnett Attending Unavailable Tye Barnett Referring Unavailable Benton, Daron Primary Care Unavailable Jorge Hurtado Attending Unavailable Benton, Daron Referring Unavailable Sachin Murillo F Referring Unavailable Vernon Murilloolas F Consulting Unavailable Vernon Murilloolas F Admitting Unavailable Benton, Daron Primary Care Unavailable Roman Mckeon Attending Unavailable Roman Mckeon Consulting Unavailable Benton, Daron Primary Care Unavailable Marcial Jacobril Attending Unavailable Jayson Trina Admitting Unavailable Benton, Daron Primary Care Unavailable Shirley, Neha Debbie Attending Unavailable Nagajothi, Nagapradee Consulting Unavailabl e Tyler, Trina Consulting Unavailable Benton, Daron Primary Care Unavailable Jorge Hurtado Attending Unavailable Brown, Jorge Referring Unavailable Benton, Daron Primary Care Unavailable BrownPerryk Attending Unavailable Brown, Jorge Referring Unavailable Brown, Jorge Consulting Unavailable Lisa, Kevin Attending Unavailable NagKofi stock Attending Unavailabl e Jayson Trina Referring Unavailable Kofi Weiner Attending Unavailabl e Benton, Daron Primary Care Unavailable Benton, Daron Primary Care Unavailable Jorge Hurtado Attending Unavailable Jorge Hurtado Referring Unavailable Negar Mckeon Attending Unavailable Benton, Daron Referring Unavailable Benton, Daron Primary Care Unavailable Benton, Daron Primary Care Unavailable Iona Bradley Attending Unavailable Benton, Daron Referring Unavailable Benton, Daron Referring Unavailable Benton, Daron Primary Care Unavailable Negar Mckeon Attending Unavailable Benton, Daron Referring Unavailable Benton, Daron Primary Care Unavailable Betsey Davenport Attending Unavail able Ebnton, Daron Primary Care Unavailable Benton, Daron Referring Unavailable Betsey Davenport Attending Unavail able eKvin Gonzalez Attending Unavailable Benton, Daron Primary Care Unavailable Benton, Daron Referring Unavailable Trina Tyler Attending Unavailable Benjy Flores Referring Unavailable Benton, Daron Primary Care Unavailable Sommer Resendiz L Attending Unavailable White Sommer L Consulting Unavailable White Sommer L Admitting Unavailable Belal, Farouk Consulting Unavailable Belal Farouk Attending Unavailable Shirley, Neha Debbie Consulting Unavailable Roma Watsona Debbie Attending Unavailable Bhavik Smiley Attending Unavailable Dex Worrell Consulting Unavailable Dex Worrell Attending Unavailable Sachin Murillo Attending Unavailable Ramírez Onofre Attending Unavailable Benton, Daron Primary Care Unavailable Yasmani Haynes Attending Unavailable Yasmani Haynes Referring Unavailable Benton, Daron Primary Care Unavailable Benton, Daron Primary Care Unavailable Benton, Daron Attending Unavailable Chetan FOX, Dr. Neri Primary Care Provider [phone] Dr. Daron Benton MD Referring Provider Dr. Daron Benton MD Other Provider Dr. Tye Barnett MD Attending Provider Dr. Tye Barnett MD Referring Provider Allergies Allergy Classification Reported Allergen(s) Allergy Type Date of Onset Reaction(s) Facility (4 sources) Antihistamines; Translations: [ANTIHISTAMINES] Propensity to adverse reactions to drug (disorder) 04-28-20 04 [facility] Repository (3 sources) clopidogrel; Translations: [CLOPIDOGREL BISULFATE] Drug Allergy 12-18-19 12 Other: See Comments [facility] Repository (20 sources) codeine; Translations: [CODEINE] Drug Allergy 04-28-20 04 Nausea [facility] Repository (3 sources) fenofibrate; Translations: [FENOFIBRATE MICRONIZED] Drug Allergy 04-27-20 11 Intolerance [facility] Repository (20 sources) fentaNYL; Translations: [FENTANYL] Drug Allergy 02-19-20 12 Other: See Comments [facility] Repository (3 sources) Hmg-Coa Reductase Inhibitors (Statins); Translations: [SWIJRIE-QWY-BTU REDUCTASE INHIBITORS] Propensity to adverse reactions to drug (disorder) 04-27-20 11 Intolerance [facility] Repository (20 sources) morphine; Translations: [MORPHINE] Drug Allergy 04-28-20 04 Nausea, Vomiting [facility] Repository (20 sources) predniSONE; Translations: [PREDNISONE] Drug Allergy 12-15-19 09 [facility] Repository (20 sources) salicylic acid; Translations: [SALICYLATES] Drug Allergy 12-04-19 09 [facility] Repository (20 sources) Amitriptyline Drug Allergy 03-12-20 19 Rash [facility] (20 sources) Aspirin; Translations: [aspirin] Drug Allergy 02-15-20 22 Ulcer (morphologic abnormality) [facility] (20 sources) Colestipol; Translations: [colestipol] Drug Allergy 02-15-20 22 unknown [facility] (20 sources) Ethylenediamine derivative antihistamine Propensity to adverse reactions 02-15-20 22 Nausea/Vom/[place] [facility] (20 sources) pregabalin Drug Allergy 02-15-20 22 Hives [facility] (20 sources) Temazepam Drug Allergy 02-15-20 22 Nausea/Vom/[place] [facility] (20 sources) Antihistamines - Alkylamine; Translations: [Antihistamines - Alkylamine] Propensity to adverse reactions 02-15-20 22 Nausea/Vom/[place] [facility] (20 sources) Antihistamines - Ethanolamine; Translations: [Antihistamines - Ethanolamine] Propensity to adverse reactions 02-15-20 22 Nausea/Vom/[place] [facility] (20 sources) Antihistamines - Piperazine; Translations: [Antihistamines - Piperazine] Propensity to adverse reactions 02-15-20 22 Nausea/Vom/[place] [facility] (20 sources) Antihistamines - Piperidine; Translations: [Antihistamines - Piperidine] Propensity to adverse reactions 02-15-20 22 Nausea/Vom/[facility] (20 sources) Wufpgka-Upm-Bkl Reductase Inhibitor; Translations: [Oewrcum-Tas-Dvu Reductase Inhibitor] Propensity to adverse reactions 02-15-20 22 Nausea [facility] (8 sources) STEROIDS BY MOUTH Propensity to adverse reactions 02-15-20 22 Upset Stomach [facility] (1 source) HMG-CoA reductase inhibitor; Translations: [statins] Drug allergy [facility] (20 sources) Glucocorticoid Receptor Agonists Propensity to adverse reactions 03-16-20 23 Upset Stomach [facility] (17 sources) clopidogrel Drug Allergy 12-18-19 12 [facility] (17 sources) Fenofibrate Drug Allergy 04-27-20 11 [facility] (17 sources) Antihistamines, Diphenhydramine-Ty pe Drug Intolerance 09-17-20 [facility] (1 source) Amitriptyline Drug Allergy 05-06-20 [facility] Repository (1 source) Aspirin Drug Allergy 05-06-20 25 [facility] Repository (1 source) Colestipol Drug Allergy 05-06-20 25 [facility] Repository (1 source) Corticosteroids Drug allergy (disorder) 05-06-20 25 [facility] Repository (1 source) pregabalin Drug Allergy 05-06-20 25 [facility] Repository (1 source) Temazepam Drug Allergy 05-06-20 [facility] Repository (1 source) Antihistamines - Ethylenediamine Drug allergy (disorder) 05-06-20 [facility] Repository Medications Current Medications Medication Drug Class(es) Dates Sig (Normalized) Sig (Original) acetaminophen 325 mg / HYDROcodone bitartrate 5 mg oral tablet (1 source) Opioid Agonist take 1 tablet by mouth every six hours as needed HYDROcodone-acetam inophen (NORCO) 5-325 mg per tablet Take 1 tablet by mouth every 6 hours as needed. Active [id number] 200 actuat albuterol 0.09 mg/actuat metered dose inhaler (1 source) beta2-Adrenergic Agonist Start: 05-26-2020 take 2 puff(s) by inhalation every four hours as needed for wheezing albuterol HFA (VENTOLIN HFA) 90 mcg/actuation inhaler Inhale 2 Puffs as instructed every 4 hours as needed for Wheezing/Shortness of Breath. 1 Inhaler 05/26/2020 Active amitriptyline hydrochloride 25 mg oral tablet (1 source) Tricyclic Antidepressant take 1 tablet by mouth once daily at bedtime amitriptyline (ELAVIL) 25 mg tablet Take 25 mg by mouth daily at bedtime. Active amLODIPine 2.5 mg oral tablet (13 sources) Dihydropyridine Calcium Channel Elli Start: 05-13-2025 Start: 11-24-2024 End: 05-13-2025 Start: 11-24-2024 End: 01-13-2025 take 1 tablet by mouth once daily Amlodipine (Norvasc) 5 mg tablet Discontinued 5 mg PO daily November 24, 2024 1:00am January 13, 2025 3:33pm apixaban 5 mg oral tablet (20 sources) Factor Xa Inhibitor Start: 01-12-2025 End: 03-09-2025 Start: 01-11-2024 End: 01-10-2025 Start: 01-11-2024 End: 01-10-2025 take 1 tablet by mouth twice daily Apixaban (Eliquis) 5 mg tablet Discontinued 5 mg PO TWICE A DAY January 11, 2024 1:00am January 10, 2025 11:53pm Start: 11-21-2023 End: 12-21-2023 Start: 11-21-2023 End: 12-21-2023 take 1 tablet by mouth twice daily Apixaban (Eliquis) 5 mg Tablet Discontinued 5 mg PO TWICE A DAY 60 November 21, 2023 1:00am December 21, 2023 1:57pm aspirin 81 mg delayed release oral tablet (6 sources) Platelet Aggregation Inhibitor, Nonsteroidal Anti-inflammatory Drug Start: 12-11-2024 Start: 12-11-2024 take 1 tablet by celeste th at breakfast Aspirin 81 mg Tablet,Delayed Release (Dr/Ec) Active 81 mg PO WITH BREAKFAST December 11, 2024 1:00am azithromycin 250 mg oral tablet (1 source) Macrolide Antimicrobial Start: 08-15-2019 take 1 tablet by mouth once daily azithromycin (ZITHROMAX Z-RAMIRO) 250 mg tablet Take 1 tablet by mouth once daily. 1 Package 08/15/2019 Active baclofen 20 mg oral tablet (20 sources) gamma-Aminobutyric Acid-ergic Agonist Start: 08-11-2021 End: 04-24-2025 Start: 08-11-2021 End: 03-04-2025 take 1 tablet by mouth every eight hours baclofen (Lioresal) 20 MG tablet Indications: Multiple sclerosis (HCC) take 1 tablet by mouth every 8 hours if needed muscle spasm 90 tablet 1 11/20/2024 03/04/2025 Discontinued (Reorder) Start: 08-11-2021 take 1 tablet by celeste th every six hours Baclofen 20 mg tablet Active 20 mg PO EVERY 6 HOURS August 11, 2021 12:00am Start: 07-16-2018 End: 08-11-2021 Start: 07-16-2018 End: 08-11-2021 Start: 12-16-2013 End: 07-16-2018 Start: 12-16-2013 End: 07-16-2018 take 1 tablet by mouth every six hours as needed for pain Baclofen 20 MG tablet Discontinued 20 mg PO EVERY 6 HOURS NEEDED as needed for Pain December 16, 2013 1:00am July 16, 2018 4:15pm baclofen (GABLOF EN) 40,000 mcg/20mL (2,000 mcg/mL) injection 50 mcg by INTRATHECAL route four times daily. Active benzonatate 100 mg oral capsule (1 source) Non-narcotic Antitussive Start: 08-15-2019 take 2 capsules by mouth every eight hours as needed for cough and cough benzonatate (TESSALON PERLE) 100 mg capsule Indications: Cough Take 2 capsules by mouth three times daily as needed. 42 capsule 08/15/2019 Active Calcium Carbonate-Vitamin D3 (VITAMIN D-3) 180-5,000 mg-unit Tab (1 source) take 180-5000 tablets by mouth twice daily Calcium Carbonate-Vitamin D3 (VITAMIN D-3) 180-5,000 mg-unit Tab Indications: Mastodynia Take by mouth twice daily. Active cholecalciferol 0.125 mg oral capsule (20 sources) Vitamin D Start: 02-27-2022 Start: 12-16-2013 take 1 tablet by celeste th once daily Cholecalciferol (Vitamin D3) 5,000 UNIT tablet Active 5000 U PO DAILY December 16, 2013 1:00am 12 hr dextromethorphan hydrobromide 60 mg / guaiFENesin 1200 mg extended release oral tablet (20 sources) Uncompetitive A-zsnrbz-S-aspartate Receptor Antagonist, Sigma-1 Agonist Start: 11-16-2023 End: 02-19-2024 Start: 11-16-2023 End: 02-19-2024 take 60-1200 mg by mouth every twelve hours as needed Dextromethorphan-Guaifenesin (Mucinex Dm ) 60-1,200 mg tablet extended release 12 hr Active 1 {tbl} PO Q12H as needed for cough/congest February 19, 2024 12:00am Start: 11-16-2023 End: 02-19-2024 docusate sodium 100 mg oral capsule (5 sources) Start: 04-18-2025 doxepin hydrochloride 10 mg/ ml oral solution (4 sources) Tricyclic Antidepressant Start: 04-18-2025 Start: 04-18-2025 take 5-10 mg by mouth at bedti ms Doxepin 10 mg/mL concentrate Active 5 - 10 mg PO AT BEDTIME April 18, 2025 12:00am esomeprazole 40 mg delayed release oral capsule (1 source) Proton Pump Inhibitor Start: 12-28-2015 take 1 capsule by mouth once daily esomeprazole (NEXIUM) 40 mg capsule Take 1 capsule by mouth once daily. 30 capsule 4 12/28/2015 Active famotidine 40 mg oral tablet (20 sources) Histamine-2 Receptor Antagonist Start: 08-21-2024 End: 11-24-2024 Start: 12-21-2023 End: 02-25-2024 gabapentin 800 mg oral table t (20 sources) Anti-epileptic Agent Start: 07-16-2018 End: 04-03-2025 Start: 02-02-2015 take 1 capsule by mo [facility] three times daily gabapentin (NEURONTIN) 400 mg capsule Take 1 capsule by mouth three times daily. 0 02/02/2015 Active Start: 01-24-2015 End: 07-16-2018 Start: 01-24-2015 End: 07-16-2018 levothyroxine sodium 0.075 mg oral tablet (20 sources) l-Thyroxine Start: 11-07-2022 levothyroxine 75 mcg (0.075 mg) oral tablet Dose : 75 mcg = 1 tab(s), Oral, qDay, # 30 tab(s), 0 Refill(s) Start Date: 11/07/22 Status: Ordered Start: 08-11-2021 Start: 07-16-2018 End: 08-11-2021 Start: 07-16-2018 End: 07-17-2018 take 1 tablet by mouth once daily Levothyroxine 75 mcg tablet Discontinued 75 ug PO DAILY July 16, 2018 12:00am July 17, 2018 10:36am Start: 07-16-2018 End: 08-11-2021 Start: 12-16-2013 End: 07-16-2018 Start: 08-23-2011 take 2 tablets by mo [facility] once daily levothyroxine 25 mcg ORAL tablet Take 50 mcg by mouth once daily. 0 08/23/2011 Active magnesium oxide 250 mg oral tablet (20 sources) Start: 11-07-2022 Magnesium 250 mg tablet Dose : 250 mg = 1 tab(s), Oral, qDay, PRN Control symptoms, 0 Refill(s) Start Date: 11/07/22 Status: Ordered Start: 08-12-2018 End: 08-11-2021 melatonin 5 mg oral tablet (1 source) Start: 02-28-2011 Melatonin 5 mg ORAL Tab Take 5 mg by mouth. As needed 02/28/2011 Active naloxegol 25 mg oral tablet (5 sources) Opioid Antagonist Start: 04-18-2025 pantoprazole 40 mg delayed release oral tablet (11 sources) Proton Pump Inhibitor Start: 04-22-2025 Start: 02-25-2024 End: 04-21-2024 polysaccharide iron complex 150 mg oral capsule (3 sources) Start: 04-22-2025 potassium chloride 1.33 meq/ ml oral solution (3 sources) Start: 04-22-2025 rosuvastatin calcium 10 mg o ral tablet (10 sources) HMG-CoA Reductase Inhibitor Start: 04-18-2025 Start: 11-24-2024 End: 12-09-2024 Vitamin D3 (1 source) Start: 11-07-2022 Vitamin D3 Dos e : 125 mcg = 1 cap(s), Oral, qDay, 0 Refill(s) Start Date: 11/07/22 Status: Ordered Completed/Discontinued Medications Medication Drug Class(es) Dates Sig (Normalized) Sig (Original) acetaminophen 325 mg / oxyCODONE hydrochloride 5 mg oral tablet (20 sources) Opioid Agonist Start: 02-09-2021 End: 02-12-2021 Start: 02-09-2021 End: 02-12-2021 Oxycodone-Acetaminophen 1 TA BLET tablet Discontinued 1 {tbl} PO EVERY 6 HOURS NEEDED as needed for Pain 12 February 09, 2021 February 11, 2021 12:00am February 12, 2021 12:04am Start: 02-09-2021 End: 02-12-2021 Start: 02-09-2021 End: 02-12-2021 take 1 tablet by mouth every six hours as needed Oxycodone-Acetaminophen Discontinued 1 TABLET PO EVERY 6 HOURS NEEDED 12 February 09, 2021 February 11, 2021 11:04pm amoxicillin 875 mg / clavula sadia 125 mg oral tablet (20 sources) Penicillin-class Antibacterial Start: 02-25-2024 End: 04-21-2024 Start: 02-25-2024 End: 04-21-2024 Amoxicillin-Pot Clavulanate 875-125 mg tablet Discontinued 1 {tbl} PO TWICE A DAY 4 February 25, 2024 12:00am April 21, 2024 1:39pm Start: 02-25-2024 Start: 12-07-2023 End: 12-21-2023 Start: 12-07-2023 End: 12-21-2023 Amoxicillin-Pot Clavulanate 875-125 mg tablet Discontinued 1 {tbl} PO TWICE A DAY 8 December 07, 2023 1:00am December 21, 2023 1:57pm Start: 12-07-2023 End: 12-21-2023 carvedilol 3.125 mg oral tablet (20 sources) alpha-Adrenergic Elli, beta-Adrenergic Elli Start: 01-13-2025 End: 03-03-2025 Start: 12-11-2024 End: 12-12-2024 cephalexin 500 mg oral capsu le (20 sources) Cephalosporin Antibacterial Start: 03-31-2023 End: 10-05-2023 Start: 02-09-2021 End: 04-08-2021 Start: 02-09-2021 End: 04-08-2021 take 1 capsule by mouth every six hours Cephalexin 500 MG capsule Discontinued 500 mg PO EVERY 6 HOURS February 09, 2021 12:00am April 08, 2021 1:38pm clopidogrel 75 mg oral table t (20 sources) [id number] Platelet Inhibitor Start: 12-16-2013 End: 02-19-2024 Start: 12-16-2013 End: 02-19-2024 take 1 tablet by mouth once daily Clopidogrel 75 mg tablet Discontinued 75 mg PO DAILY June 01, 2023 10:09am February 19, 2024 11:09am doxycycline monohydrate 100 mg oral capsule (20 sources) Tetracycline-class Drug Start: 08-03-2020 End: 08-10-2020 DULoxetine 30 mg delayed release oral capsule (12 sources) Serotonin and Norepinephrine Reuptake Inhibitor Start: 04-04-2023 End: 03-04-2025 take 1 capsule by mouth once daily DULoxetine (Cymbalta) [address] capsule take 1 capsule by mouth once daily DO NOT CRUSH OR CHEW 90 capsule 2 05/10/2023 03/04/2025 Discontinued (Ineffective) ezetimibe 10 mg oral tablet (20 sources) Dietary Cholesterol Absorption Inhibitor Start: 06-24-2018 End: 07-17-2018 fluticasone propionate 0.05 mg/actuat metered dose nasal spray (20 sources) Corticosteroid Start: 08-11-2021 End: 05-16-2022 Fluticasone Propionate 50 mcg/actuation spray,suspension Discontinued 2 NMA INTRANASAL DAILY as needed for Allergy Symptoms August 11, 2021 11:16am May 16, 2022 2:24pm Start: 08-11-2021 End: 05-16-2022 Fluticasone Propionate Disco ntinued 2 SPRAY INTRANASAL DAILY August 11, 2021 10:16am May 16, 2022 1:24pm Start: 04-08-2021 End: 05-16-2022 Start: 04-08-2021 End: 08-11-2021 Fluticasone Propionate Disco ntinued 2 SPRAY INTRANASAL April 07, 2021 11:00pm August 11, 2021 10:18am ipratropium bromide 0.042 mg /actuat metered dose nasal spray (4 sources) Anticholinergic Start: 04-18-2025 End: 05-06-2025 Start: 04-18-2025 Ipratropium Br omide 42 mcg (0.06 %) spray,non-aerosol Active 2 NMA INTRANASAL THREE TIMES A DAY as needed for allergy symptoms April 18, 2025 12:00am administer into each nostril Ipratropium [place] 42 mcg ( 0.06 %) spray,non-aerosol (2 sources) Start: 12-24-2024 End: 04-18-2025 Ipratropium [place] 42 mcg (0.06 %) spray,non-aerosol Discontinued 2 NMA INTRANASAL THREE TIMES A DAY December 24, 2024 1:00am April 18, 2025 8:34pm administer into each nostril Start: 12-24-2024 Ipratropium Br omide 42 mcg (0.06 %) spray,non-aerosol Active 2 NMA INTRANASAL THREE TIMES A DAY December 24, 2024 1:00am administer into each nostril lisinopril 10 mg oral tablet (20 sources) Angiotensin Converting Enzyme Inhibitor Start: 02-19-2024 End: 05-13-2025 Start: 11-02-2023 End: 12-21-2023 Start: 09-04-2023 End: 11-02-2023 Start: 09-04-2023 End: 11-24-2024 take 1 tablet by mouth once daily lisinopril 10 MG tablet Take 10 mg by mouth daily. 10/01/2023 Active Start: 02-22-2022 End: 05-16-2022 Start: 02-22-2022 End: 05-16-2022 take 1 tablet by mouth once daily Lisinopril 10 mg tablet Discontinued 10 mg PO DAILY February 22, 2022 12:00am May 16, 2022 2:24pm Marijuana (20 sources) Start: 08-11-2021 End: 02-22-2022 Marijuana Discontinued PO .p rn August 11, 2021 10:17am February 22, 2022 9:55am Smoke during the day and gummies at bedtime Start: 08-11-2021 End: 02-22-2022 Marijuana Discontinued PO .p rn August 11, 2021 11:17am February 22, 2022 10:55am Smoke during the day and gummies at bedtime Start: 08-11-2021 Marijuana Acti ve PO .prn August 11, 2021 11:17am Smoke during the day and gummies at bedtime Start: 08-05-2019 End: 08-11-2021 Marijuana Discontinued PO Se ptember 2018 10:56am August 11, 2021 11:18am Smoke during the day and gummies at bedtime Start: 08-05-2019 End: 08-11-2021 Marijuana Discontinued PO Se ptember 2018 11:00pm August 11, 2021 10:18am Smoke during the day and gummies at bedtime Start: 08-05-2019 End: 08-11-2021 Marijuana Discontinued PO Se ptember 2018 12:00am August 11, 2021 11:18am Smoke during the day and gummies at bedtime metoclopramide 5 mg oral tab let (6 sources) Dopamine-2 Receptor Antagonist Start: 06-19-2024 End: 11-28-2024 metoprolol tartrate 25 mg or al tablet (20 sources) beta-Adrenergic Elli Start: 11-21-2023 End: 02-19-2024 Start: 11-21-2023 End: 02-19-2024 Start: 10-26-2020 End: 10-05-2023 Start: 10-26-2020 End: 10-05-2023 Start: 06-14-2020 End: 10-26-2020 abuse-deterrent 12 hr oxyCOD ONE hydrochloride 20 mg extended release oral tablet (20 sources) Opioid Agonist Start: 10-05-2023 End: 11-15-2023 Start: 11-07-2022 oxyCODONE 5 mg oral tablet ( IMMEDIATE release ) Dose : 5 mg = 1 tab(s), Oral, BID, 0 Refill(s) Start Date: 11/07/22 Status: Ordered Start: 08-11-2021 End: 05-24-2023 Start: 08-11-2021 End: 05-24-2023 take 1 tablet by mouth twice daily Oxycodone 10 mg tablet Discontinued 10 mg PO TWICE A DAY August 11, 2021 12:00am May 24, 2023 11:14am Start: 12-26-2019 End: 05-24-2023 take 1 tablet by mouth three times daily as needed oxyCODONE (Roxicodone) 10 MG immediate release tablet Take 10 mg by mouth 3 times daily as needed. 09/17/2022 Active Start: 02-01-2018 End: 08-11-2021 Start: 02-01-2018 End: 08-11-2021 phenazopyridine hydrochlorid e 200 mg oral tablet (20 sources) Start: 03-31-2023 End: 10-05-2023 plecanatide 3 mg oral tablet (6 sources) Start: 06-19-2024 End: 11-28-2024 predniSONE 20 mg oral tablet (20 sources) Start: 12-14-2023 End: 04-08-2025 predniSONE (Deltasone) 20 MG tablet Indications: Multiple sclerosis (HCC) Take 5 tablets on day one, 4 tablets on day 2, 3 tablets on days 3, 2 tablets on day 4, then 1 tablet on day 5 No refills 15 tablet 12/14/2023 04/08/2025 Discontinued (Therapy completed) Start: 10-05-2023 End: 11-15-2023 Start: 10-05-2023 End: 11-15-2023 Start: 02-18-2022 End: 05-16-2022 Start: 02-18-2022 End: 05-16-2022 take 2 tablets by mouth once daily Prednisone 20 mg tablet Discontinued 40 mg PO DAILY 10 February 18, 2022 12:00am May 16, 2022 2:24pm Start: 02-18-2022 End: 05-16-2022 Start: 08-03-2020 End: 08-08-2020 Start: 08-03-2020 End: 08-08-2020 take 3 tablets by mouth once daily Prednisone 20 MG tablet Discontinued 60 mg PO DAILY 02 04August 03, 2020 12:00am August 07, 2020 12:00am August 08, 2020 12:03am Start: 08-03-2020 End: 08-08-2020 take 60 mg by mouth once daily Prednisone Discontinued 60 MG PO DAILY 02 04August 02, 2020 11:00pm August 07, 2020 11:03pm Start: 05-26-2020 End: 11-25-2020 take 1 tablet by mouth twice daily predniSONE (DELTASONE) 20 mg tablet Take 1 tablet by mouth twice daily. 14 tablet 05/26/2020 11/25/2020 Discontinued Sennosides (Senna) 8.6 MG tablet (20 sources) Start: 02-09-2021 End: 07-27-2021 take 1 tablet by mouth at bedtime Sennosides (Senna) 8.6 MG tablet Discontinued 8.6 MG PO AT BEDTIME February 09, 2021 4:48pm July 27, 2021 9:18am Start: 02-09-2021 End: 07-27-2021 take 1 tablet by mouth at bedtime Sennosides (Senna) 8.6 MG tablet Discontinued 8.6 mg PO AT BEDTIME February 09, 2021 12:00am July 27, 2021 9:18am Start: 02-09-2021 End: 07-27-2021 take 1 tablet by mouth at bedtime Sennosides (Senna) 8.6 MG tablet Discontinued 8.6 MG PO AT BEDTIME February 08, 2021 11:00pm July 27, 2021 8:18am Start: 02-09-2021 End: 07-27-2021 take 1 tablet by mouth at bedtime Sennosides (Senna) 8.6 MG tablet Discontinued 8.6 MG PO AT BEDTIME February 09, 2021 12:00am July 27, 2021 9:18am tiZANidine 4 mg oral tablet (20 sources) Central alpha-2 Adrenergic Agonist Start: 04-02-2023 End: 05-24-2023 Start: 04-02-2023 End: 05-24-2023 Start: 10-05-2022 End: 11-20-2024 Tizanidine 4 mg tablet Disco ntinued 4 mg PO April 02, 2023 12:00am May 24, 2023 11:14am triamcinolone acetonide 40 mg/ml injectable suspension (2 sources) Corticosteroid Start: 10-21-2021 End: 10-21-2021 Kenalog (triamcinolone acetonide) 40 mg/mL suspension for injection Discontinued 60 MG INTRAARTIC ONCE 1.5 October 21, 2021 8:36am October 21, 2021 9:37am (20 sources) Start: 12-24-2024 End: 04-18-2025 Start: 12-24-2024 Start: 08-21-2024 End: 11-24-2024 Start: 08-11-2021 End: 02-22-2022 Start: 02-09-2021 End: 07-27-2021 Start: 08-05-2019 End: 08-11-2021 Problems Active Problems Problem Classification Problem Date Documented Da te Episodic/Chronic Abdominal pain (20 sources) Right flank pain; Translations: [Unspecified abdominal pain] 01-19-2020 Episodic Acute and unspecified renal failure (20 sources) Acute renal failure syndrome; Translations: [Acute kidney failure, unspecified] 11-15-2023 Episodic Acute cerebrovascular disease (1 source) Cerebral infarction, unspecified; Translations: [Cerebral infarction, unspecified] Onset: 5 Chronic Acute myocardial infarction (20 sources) Myocardial infarction; Translations: [Non-ST elevation (NSTEMI) myocardial infarction] Onset: 5 01-21-2025 Chronic Adjustment disorders (1 source) Adjustment disorder with depressed mood; Translations: [Adjustment disorder with depressed mood] Onset: 5 05-29-2024 Chronic Blindness and vision defects (20 sources) Eye / vision finding; Translations: [Unspecified visual disturbance] 08-11-2021 Episodic Cardiac dysrhythmias (20 sources) Nonsustained paroxysmal supraventricular tachycardia; Translations: [Supraventricular tachycardia] Onset: 4 08-10-2021 Chronic Cardiac dysrhythmias (20 sources) Intermittent palpitations; Translations: [Palpitations] 08-11-2021 Episodic Chronic obstructive pulmonary disease and bronchiectasis (20 sources) Pulmonary emphysema; Translations: [Emphysema, unspecified] Onset: 4 01-21-2025 Chronic Conditions associated with dizziness or vertigo (20 sources) Dizziness; Translations: [Dizziness and giddiness] 11-26-2023 Episodic Coronary atherosclerosis and other heart disease (20 sources) Non-obstructive atherosclerosis of coronary artery; Translations: [Atherosclerotic heart disease of [place] coronary artery without angina pectoris] Onset: 5 Chronic Deficiency and other anemia (20 sources) Anemia; Translations: [Anemia, unspecified] 02-19-2024 Episodic Deficiency and other anemia (5 sources) Anemia, unspecified; Translations: [Anemia, unspecified] Onset: 5 02-19-2024 Episodic Deficiency and other anemia (8 sources) Chronic anemia; Translations: [Anemia, unspecified] 04-18-2025 Episodic Deficiency and other anemia (8 sources) Microcytic anemia; Translations: [Iron deficiency anemia, unspecified] 04-18-2025 Episodic Disorders of lipid metabolism (20 sources) Hyperlipidemia; Translations: [Hyperlipidemia, unspecified] Onset: 5 10-16-2018 Chronic E Codes: Fall (16 sources) Fall; Translations: [Unspecified fall, initial encounter] 01-18-2024 Episodic Esophageal disorders (1 source) Gastroesophageal reflux disease; Translations: [Gastro-esophageal reflux disease without esophagitis] Onset: 6 Resolved: 6 01-20-2016 Chronic Essential hypertension (20 sources) Essential hypertension; Translations: [Essential (primary) hypertension] Onset: Chronic Fluid and electrolyte disorders (20 sources) Acute hyponatremia; Translations: [Hypo-osmolality and hyponatremia] 11-15-2023 Episodic Genitourinary symptoms and ill-defined conditions (20 sources) Dysuria; Translations: [Dysuria] 03-31-2023 Episodic Headache; including migraine (20 sources) Migraine; Translations: [Migraine, unspecified, not intractable, without status migrainosus] 09-11-2018 Chronic Heart valve disorders (16 sources) Mitral valve stenosis; Translations: [Rheumatic mitral stenosis] Onset: 5 12-19-2024 Chronic Heart valve disorders (20 sources) Heart murmur; Translations: [Cardiac murmur, unspecified] Onset: 5 Episodic Hypertension with complications and secondary hypertension (13 sources) Hypertensive emergency; Translations: [Hypertensive emergency] Onset: 5 01-21-2025 Chronic Influenza (20 sources) Influenza due to Influenza A virus; Translations: [Influenza due to other identified influenza virus with other respiratory manifestations] 11-15-2023 Episodic Malaise and fatigue (20 sources) Asthenia; Translations: [Weakness] Onset: 5 12-02-2023 Episodic Multiple sclerosis (20 sources) Multiple sclerosis; Translations: [Multiple sclerosis] Onset: 5 02-17-2022 Chronic Nausea and vomiting (7 sources) Nausea and vomiting; Translations: [Nausea with vomiting, unspecified] Onset: 5 04-02-2025 Episodic Nonmalignant breast conditions (1 source) Fibrocystic disease of breast; Translations: [Diffuse cystic mastopathy of unspecified breast] Onset: 9 09-28-2009 Chronic Nonspecific chest pain (20 sources) Atypical chest pain; Translations: [Other chest pain] Onset: 5 08-11-2021 Episodic Nutritional deficiencies (3 sources) Deficiency of multiple nutrient elements; Translations: [Deficiency of multiple nutrient elements] Onset: 5 03-04-2025 Episodic Occlusion or stenosis of precerebral arteries (20 sources) Occlusion and stenosis of bilateral carotid arteries; Translations: [Bilateral stenosis of carotid arteries] Onset: Chronic Comment on above: RCEA and LCEA Osteoarthritis (20 sources) Osteoarthritis of left knee joint; Translations: [Unilateral primary osteoarthritis, left knee] Chronic Other acquired deformities (20 sources) Contracture of left knee joint; Translations: [Contracture, left knee] 01-31-2022 Chronic Other aftercare (20 sources) Long-term current use of anticoagulant; Translations: [care home (current) use of anticoagulants] 01-18-2024 Episodic Other and ill-defined cerebrovascular disease (20 sources) Intracranial aneurysm; Translations: [Cerebral aneurysm, nonruptured] 08-02-2019 Chronic Comment on above: s/p coiling February 05 Other and ill-defined cerebrovascular disease (2 sources) Cerebrovascular disease; Translations: [Cerebrovascular disease, unspecified] 10-05-2023 Chronic Other and ill-defined cerebrovascular disease (1 source) Cerebral aneurysm, nonruptured; Translations: [Cerebral aneurysm, nonruptured] Onset: 5 Chronic Other circulatory disease (12 sources) Stenosis of left subclavian artery; 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] 01-11-2024 Chronic Other circulatory disease (1 source) Stricture of artery; 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] Onset: 5 Chronic Other circulatory disease (20 sources) H/O: atrial fibrillation; Translations: [Personal history of other diseases of the circulatory system] 11-27-2023 Episodic Other circulatory disease (12 sources) Low blood pressure; Translations: [Hypotension, unspecified] 02-19-2024 Episodic Other circulatory disease (3 sources) Hypotension, unspecified; Translations: [Hypotension, unspecified] 02-19-2024 Episodic Other circulatory disease (8 sources) Orthostatic hypotension; Translations: [Orthostatic hypotension] 04-18-2025 Episodic Other connective tissue disease (20 sources) Pain in calf; Translations: [Pain in left lower leg] 12-02-2022 Episodic Other connective tissue disease (20 sources) Foot pain; Translations: [Pain in left foot] 03-16-2023 Episodic Other eye disorders (20 sources) Pain in eye; Translations: [Ocular pain, right eye] 02-25-2022 Episodic Other gastrointestinal disorders (9 sources) Occult blood in stools; Translations: [Other fecal abnormalities] 02-19-2024 Episodic Other gastrointestinal disorders (3 sources) Other fecal abnormalities; Translations: [Nonspecific abnormal findings in stool contents] 02-19-2024 Episodic Other gastrointestinal disorders (7 sources) Constipation; Translations: [Constipation, unspecified] 04-18-2025 Episodic Other gastrointestinal disorders (1 source) Constipation, unspecified; Translations: [Constipation, unspecified] Onset: Episodic Other hereditary and degenerative nervous system conditions (1 source) Impaired cognition; Translations: [Mild cognitive impairment, so stated] 03-04-2025 Chronic Other hereditary and degenerative nervous system conditions (3 sources) Mild cognitive impairment, so stated; Translations: [Mild cognitive impairment of uncertain or unknown etiology] Onset: Chronic Other inflammatory condition of skin (20 sources) Psoriatic arthritis; Translations: [Arthropathic psoriasis, unspecified] 10-21-2021 Chronic Other inflammatory condition of skin (19 sources) Arthropathic psoriasis, unspecified; Translations: [Psoriatic arthropathy] Chronic Other inflammatory condition of skin (1 source) Disorder of integument; Translations: [Other psoriasis] 05-29-2024 Chronic Other injuries and conditions due to external causes (20 sources) Closed injury of head; Translations: [Unspecified injury of head, initial encounter] 01-11-2024 Episodic Other injuries and conditions due to external causes (1 source) Encounter for examination and observation following other accident; Translations: [Encounter for examination and observation following other accident] Onset: Episodic Other lower respiratory disease (20 sources) Dyspnea; Translations: [Dyspnea, unspecified] 08-11-2021 Episodic Other lower respiratory disease (20 sources) Dyspnea on exertion; Translations: [Other forms of dyspnea] 11-24-2022 Episodic Other lower respiratory disease (17 sources) Cough; Translations: [Cough] 11-26-2023 Episodic Other lower respiratory disease (10 sources) Hypoxemia; Translations: [Hypoxemia] 10-08-2024 Episodic Other nervous system disorders (20 sources) Chronic pain; Translations: [Other chronic pain] 02-14-2022 Chronic Other nervous system disorders (2 sources) Other chronic pain; Translations: [Other chronic pain] Chronic Other nervous system disorders (20 sources) Intercostal neuralgia; Translations: [Other specified mononeuropathies] 04-02-2023 Chronic Other nervous system disorders (3 sources) Other specified mononeuropathies; Translations: [Other nerve root and plexus disorders] 04-02-2023 Chronic Other nervous system disorders (20 sources) Paresthesia; Translations: [Paresthesia of skin] 02-26-2022 Episodic Other nervous system disorders (15 sources) Facial paresthesia; Translations: [Paresthesia of skin] 11-27-2023 Episodic Other nervous system disorders (2 sources) Impairment of balance; Translations: [Other abnormalities of gait and mobility] 12-14-2023 Episodic Other nervous system disorders (2 sources) Impaired cognition 03-04-2025 Episodic Other nervous system disorders (3 sources) Dysphasia; Translations: [Dysphasia] Onset: 5 04-08-2025 Episodic Other nervous system disorders (1 source) Dysphasia; Translations: [Dysphasia] Onset: Episodic Other non-traumatic joint disorders (20 sources) Effusion of joint of left knee; Translations: [Effusion, left knee] 10-21-2021 Episodic Other non-traumatic joint disorders (20 sources) Pain in left knee; Translations: [Mechanical pain of left knee] 10-05-2021 Episodic Other non-traumatic joint disorders (12 sources) Effusion, left knee; Translations: [Effusion of joint, lower leg] Episodic Other non-traumatic joint disorders (20 sources) Knee joint effusion; Translations: [Effusion, unspecified knee] 10-22-2023 Episodic Other non-traumatic joint disorders (13 sources) Effusion, unspecified knee; Translations: [Effusion of joint, lower leg] 10-22-2023 Episodic Other screening for suspected conditions (not mental disorders or infectious disease) (20 sources) Raised cardiac enzyme or marker; Translations: [Other specified abnormal findings of blood chemistry] Onset: 9 11-18-2023 Episodic Other upper respiratory disease (6 sources) Acute bronchospasm; Translations: [Acute bronchospasm] 12-25-2024 Episodic Peripheral and visceral atherosclerosis (20 sources) Peripheral vascular disease, unspecified; Translations: [Peripheral vascular disease] Onset: 7 Chronic Pneumonia (except that caused by tuberculosis or sexually transmitted disease) (12 sources) Community acquired pneumonia; Translations: [Pneumonia, unspecified organism] 02-19-2024 Episodic Residual codes; unclassified (20 sources) Edema of foot; Translations: [Localized edema] 12-02-2022 Episodic Residual codes; unclassified (20 sources) FH: Multiple sclerosis; Translations: [Family history of epilepsy and other diseases of the nervous system] 11-27-2023 Episodic Residual codes; unclassified (17 sources) Sign; Translations: [Other general symptoms and signs] 02-19-2024 Episodic Residual codes; unclassified (3 sources) Other general symptoms and signs; Translations: [Anemia, unspecified] 02-19-2024 Episodic Residual codes; unclassified (10 sources) Genetic disorder carrier; Translations: [Genetic carrier of other disease] 12-24-2024 Episodic Residual codes; unclassified (1 source) Family history of stroke; Translations: [Family history of stroke] Onset: 5 Episodic Spondylosis; intervertebral disc disorders; other back problems (20 sources) Degeneration of lumbosacral intervertebral disc; Translations: [Other intervertebral disc degeneration, lumbosacral region] 04-08-2021 Chronic Spondylosis; intervertebral disc disorders; other back problems (20 sources) Sciatica; Translations: [Sciatica, left side] Onset: 5 02-22-2022 Episodic Sprains and strains (20 sources) Strain of thoracic region; Translations: [Strain of muscle and tendon of back wall of thorax, initial encounter] 01-30-2020 Episodic Substance-related disorders (20 sources) Tobacco dependence caused by cigarettes; Translations: [Nicotine dependence, cigarettes, uncomplicated] Onset: 4 12-19-2024 Chronic Comment on above: LDCT due 10/13 Substance-related disorders (4 sources) Continuous opioid dependence; Translations: [Opioid use, unspecified, uncomplicated] 04-18-2025 Episodic Superficial injury; contusion (20 sources) Abrasion of cornea of right eye; Translations: [Injury of conjunctiva and corneal abrasion without foreign body, right eye, initial encounter] 02-25-2022 Episodic Thyroid disorders (1 source) Non-toxic uninodular goiter; Translations: [Nontoxic single thyroid nodule] Onset: 5 05-29-2024 Chronic Unclassified (1 source) Unknown / UNK(Unknown) Onset: 7 Urinary tract infections (20 sources) Cystitis; Translations: [Cystitis, unspecified without hematuria] 03-31-2023 Episodic Past or Other Problems Problem Classification Problem Date Documented Date Episodic/Chronic Biliary tract disease (2 sources) Gallstone; Translations: [Calculus of gallbladder without cholecystitis without obstruction] Onset: 12-05-2010 12-05-2010 Episodic Other aftercare (1 source) Encounter for surgical aftercare following surgery on the circulatory system; Translations: [Encounter for surgical aftercare following surgery on the circulatory system] Onset: 09-18-2024 Episodic Other and unspecified benign neoplasm (1 source) History of adenomatous polyp of colon; Translations: [History of adenomatous polyp of colon] Onset: 01-20-2016 Resolved: 01-20-2016 01-20-2016 Episodic Other circulatory disease (1 source) Other specified symptoms and signs involving the circulatory and respiratory systems; Translations: [Other symptoms involving cardiovascular system] Episodic Other lower respiratory disease (4 sources) Other forms of dyspnea; Translations: [Other respiratory abnormalities] Onset: 01-19-2025 Episodic Results Test Name Value Interpretation Reference Range Facility Thyroid Antibodieson 025 TG AB < 1.0 Normal 0.0-0.9 [facility] Comment on above: Result Comment: Thyr oglobulin Antibody measured by Goods PlatformMethodologyIt should be noted that the presence of thyroglobulinantibodies may not be pathogenic nor diagnostic, especiallyat very low levels. The assay principal librarian has found thatfour percent of individuals without evidence of thyroiddisease or autoimmunity will have positive TgAb levels upto 4 IU/mL.Performed at: - [facility] [place], [place] [address] Director: Damion Richards PhD, Phone: [phone] Performed By: #### L 3300.6750, L503.0106, L506.0200 ####[facility] [address] [place], [place], [id number] THYR PEROX AB < 9 Normal 0-34 [facility] Comment on above: Performed By: #### L 3300.6750, L503.0106, L506.0200 ####[facility] [address] [place], [address] Absolute lymphocyte countOrd ered By: Daron Benton on 05-15-2025 Lymphocytes Auto (Unsp spec) [#/Vol] 1.09 10*3/uL 0.83-4.51 [facility] Anion gap in Serum or Plasma Ordered By: Daron Benton on 05-15-2025 Anion gap [Moles/Vol] 11 mmol/L 5-15 [facility] Automated lymphocyte count a s percentage of total leukocytesOrdered By: Daron Benton on 05-15-2025 Lymphocytes/100 WBC Auto (Unsp spec) 13.0 % Low 19-41 [facility] BUN/creatinine ratioOrdered By: Daron Benton on 05-15-2025 Urea nitrogen/Creatinine [Mass ratio] 22.7 mg/mg High 10-20 [facility] Basophil percentageOrdered B y: Daron Benton on 05-15-2025 Basophils/100 WBC (Bld) 0.8 % 0-1 [facility] Bilirubin, totalOrdered By: Daron Benton on 05-15-2025 Bilirubin [Mass/Vol] 0.18 mg/dL 0.00-1.30 [facility] Blood manual differential co mment interpretation (narrative result)Ordered By: Daron Benton on 05-15-2025 Manual differential comment Jimy (Bld) [Interp] SCANNED [facility] Blood polychromasia detectio n by light microscopyOrdered By: Daron Benton on 05-15-2025 Polychromasia LM Ql (Bld) 1+ [facility] CBC W/Diff, Automatedon 06-2 Anisocytosis Ql (Bld) 1+ Normal [facility] Comment on above: Order Comment: Order Date: 05/15/25Order Info: 183-11 - CBCDOrder Info: [id number] - RETIC Performed By: #### L 100.0100, L100.9950, L506.0400, L500.4050, L501.9520, L503.6030, L503.6550, L501.46168 ####[facility] [address] [place], [address] HYPOCHROMASIA 1+ Normal [facility] Comment on above: Order Comment: Order Date: 05/15/25Order Info: 183-11 - CBCDOrder Info: [id number] - RETIC Performed By: #### L 100.0100, L100.9950, L506.0400, L500.4050, L501.9520, L503.6030, L503.6550, L501.45441 ####[facility] [address] [place], [address] PLT EST ADEQUATE Normal ADEQ [facility] Comment on above: Order Comment: Order Date: 05/15/25Order Info: 183-11 - CBCDOrder Info: 4679-7 - RETIC Performed By: #### L 100.0100, L100.9950, L506.0400, L500.4050, L501.9520, L503.6030, L503.6550, L501.31965 ####[facility] [address] [place], [address] POLYCHROMASIA 1+ Normal [facility] Comment on above: Order Comment: Order Date: 05/15/25Order Info: 183-11 - CBCDOrder Info: 4679- - RETIC Performed By: #### L 100.0100, L100.9950, L506.0400, L500.4050, L501.9520, L503.6030, L503.6550, L501.56780 ####[facility] [address] [place], [address] SMEAR COMMENT SCANNED Normal [facility] Comment on above: Order Comment: Order Date: 05/15/25Order Info: 0184-1 - CBCDOrder Info: 4679-7 - RETIC Performed By: #### L 100.0100, L100.9950, L506.0400, L500.4050, L501.9520, L503.6030, L503.6550, L501.97385 ####[facility] [address] [place], [address] CTA Neck W/WO Contraston CTA Neck W/WO Contrast Normal [facility] Carbon dioxide, total [Moles /volume] in Central venous bloodOrdered By: Daron Benton on 05-15-2025 CO2 [Moles/Vol] 25.0 mmol/L 21.0-32.0 [facility] Chloride assayOrdered By: Alex Benton on 05-15-2025 Chloride [Moles/Vol] 100 mmol/L 98-108 [facility] Comprehensive Metabolic Prof ilon 05-15-2025 Albumin [Mass/Vol] 3.9 g/dL Normal 3.4-4.8 [facility] Comment on above: Order Comment: Order Date: 05/15/25Order Info: 0786-1 - CMPOrder Info: 3051-0 - W5FLfsme Info: 3016-3 - TSHOrder Info: [id number] - IBCOrder Info: 2276-4 - FEROrder Info: 2284-8 - FOLSOrder Info: 3024-7 - T4F Performed By: #### L 100.0100, L100.9950, L506.0400, L500.4050, L501.9520, L503.6030, L503.6550, L501.24618 ####[facility] [address] [place], [address] Albumin/Globulin [Mass ratio] 1.7 {ratio} Normal 0.9-2.4 [facility] Comment on above: Order Comment: Order Date: 05/15/25Order Info: 0786-1 - CMPOrder Info: 3051-0 - N3YQrdbz Info: 3016-3 - TSHOrder Info: [id number] - IBCOrder Info: 2276-02 - FEROrder Info: 2284-06 - FOLSOrder Info: 7 - T4F Performed By: #### L 100.0100, L100.9950, L506.0400, L500.4050, L501.9520, L503.6030, L503.6550, L501.10434 ####[facility] [address] [facility] [address] [place], [place], [id number] ALK PHOS 102 U/L Normal 35-104 [facility] Comment on above: Order Comment: Order Date: 05/15/25Order Info: 07 - CMPOrder Info: 0 - T1HMvstq Info: 3 - TSHOrder Info: - IBCOrder Info: 2276-02 - FEROrder Info: 2284-06 - FOLSOrder Info: 3024-05 - T4F Performed By: #### L 100.0100, L100.9950, L506.0400, L500.4050, L501.9520, L503.6030, L503.6550, L501.53448 ####[facility] [address] [place], [place], [address] ALT [Catalytic activity/Vol] 14 U/L Normal <=34 [facility] Comment on above: Order Comment: Order Date: 05/15/25Order Info: 0786-1 - CMPOrder Info: 3051-0 - H5FWzggy Info: 63 - TSHOrder Info: 73154-5 - IBCOrder Info: 2276-02 - FEROrder Info: 2284-06 - FOLSOrder Info: 7 - T4F Performed By: #### L 100.0100, L100.9950, L506.0400, L500.4050, L501.9520, L503.6030, L503.6550, L501.31738 ####[facility] [address] [place], [place], [address] AST [Catalytic activity/Vol] 23 U/L Normal <=31 [facility] Comment on above: Order Comment: Order Date: 05/15/25Order Info: 07-1 - CMPOrder Info: 0 - S3PJzulg Info: 3 - TSHOrder Info: 12054-2 - IBCOrder Info: 4 - FEROrder Info: 8 - FOLSOrder Info: 7 - T4F Performed By: #### L 100.0100, L100.9950, L506.0400, L500.4050, L501.9520, L503.6030, L503.6550, L501.94424 ####[facility] [address] [place], [place], [address] Bilirubin [Mass/Vol] 0.18 mg/dL Normal 0.00-1.30 [facility] Comment on above: Order Comment: Order Date: 05/15/25Order Info: 07-1 - CMPOrder Info: 0 - W8OLgiks Info: 3 - TSHOrder Info: [id number] - IBCOrder Info: 2276-02 - FEROrder Info: 2284-06 - FOLSOrder Info: 3023-7 - T4F Performed By: #### L 100.0100, L100.9950, L506.0400, L500.4050, L501.9520, L503.6030, L503.6550, L501.59296 ####[facility] [address] [place], [place], [id number] BUN/CRE 22.7 RATIO High 10-20 [facility] Comment on above: Order Comment: Order Date: 05/15/25Order Info: 0786-1 - CMPOrder Info: 0 - H8PGsiph Info: 3 - TSHOrder Info: - IBCOrder Info: 2276-02 - FEROrder Info: 2284-06 - FOLSOrder Info: 302-7 - T4F Performed By: #### L 100.0100, L100.9950, L506.0400, L500.4050, L501.9520, L503.6030, L503.6550, L501.16269 ####[facility] [address] [place], [address] Calcium [Mass/Vol] 9.1 mg/dL Normal 7.6-11.0 [facility] Comment on above: Order Comment: Order Date: 05/15/25Order Info: 0786- - CMPOrder Info: 0 - Q2OGitef Info: 3 - TSHOrder Info: - IBCOrder Info: 2276-02 - FEROrder Info: 2284-06 - FOLSOrder Info: 7 - T4F Performed By: #### L 100.0100, L100.9950, L506.0400, L500.4050, L501.9520, L503.6030, L503.6550, L501.79539 ####[facility] [address] [place], [address] Chloride [Moles/Vol] 100 mmol/L Normal 98-108 [facility] Comment on above: Order Comment: Order Date: 05/15/25Order Info: 0786-1 - CMPOrder Info: 0 - D7AGofbx Info: 3 - TSHOrder Info: - IBCOrder Info: 2276-02 - FEROrder Info: 2284-06 - FOLSOrder Info: 3024-7 - T4F Performed By: #### L 100.0100, L100.9950, L506.0400, L500.4050, L501.9520, L503.6030, L503.6550, L501.76319 ####[facility] [address] [place], [place], [address] CO2 [Moles/Vol] 25.0 mmol/L Normal 21.0-32.0 [facility] Comment on above: Order Comment: Order Date: 05/15/25Order Info: 0786-1 - CMPOrder Info: 3051-0 - W2CNtwtc Info: 3016-3 - TSHOrder Info: 26477-7 - IBCOrder Info: 2275-4 - FEROrder Info: 8 - FOLSOrder Info: 3024-7 - T4F Performed By: #### L 100.0100, L100.9950, L506.0400, L500.4050, L501.9520, L503.6030, L503.6550, L501.72171 ####[facility] [address] [place], [place], [id number] Creatinine [Mass/Vol] 1.13 mg/dL Normal 0.70-1.20 [facility] Comment on above: Order Comment: Order Date: 05/15/25Order Info: 0786-1 - CMPOrder Info: 3051-0 - I9IIppkq Info: 3016-3 - TSHOrder Info: 91583-0 - IBCOrder Info: 2276-02 - FEROrder Info: 8 - FOLSOrder Info: 3024-7 - T4F Performed By: #### L 100.0100, L100.9950, L506.0400, L500.4050, L501.9520, L503.6030, L503.6550, L501.20412 ####[facility] [address] [place], [place], [address] GAP 11 Normal 5-15 [facility] Comment on above: Order Comment: Order Date: 05/15/25Order Info: 0786-1 - CMPOrder Info: 3051-0 - F2FEmllx Info: 3016-3 - TSHOrder Info: 17052-1 - IBCOrder Info: 2275-4 - FEROrder Info: 228-8 - FOLSOrder Info: 3024-7 - T4F Performed By: #### L 100.0100, L100.9950, L506.0400, L500.4050, L501.9520, L503.6030, L503.6550, L501.49006 ####[facility] [address] [facility]. [place], [place], [phone] GFR/1.73 sq M.predicted among non-blacks MDRD (S/P/Bld) [Vol rate/Area] 52 mL/min/{1.73_m2} Low >60 [facility] Comment on above: Order Comment: Order Date: 05/15/25Order Info: 0786-1 - CMPOrder Info: 0 - X8SHtjbm Info: 3016-01 - TSHOrder Info: 62642-2 - IBCOrder Info: 2276-02 - FEROrder Info: 2284-06 - FOLSOrder Info: 3024-05 - T4F Result Comment: mL/m in/1.73m2 CKD-EPI Creatinine Equation (2020) Performed By: #### L 100.0100, L100.9950, L506.0400, L500.4050, L501.9520, L503.6030, L503.6550, L501.74163 ####[facility] [address] [facility]. [place], [place], [phone] Globulin (S) [Mass/Vol] 2.3 g/dL Normal 2.2-4.2 [facility] Comment on above: Order Comment: Order Date: 05/15/25Order Info: 0786-1 - CMPOrder Info: 3050-0 - D9HZelni Info: 3016-01 - TSHOrder Info: - IBCOrder Info: 2276-02 - FEROrder Info: 2284-06 - FOLSOrder Info: 3024-05 - T4F Performed By: #### L 100.0100, L100.9950, L506.0400, L500.4050, L501.9520, L503.6030, L503.6550, L501.46317 ####[facility] [address] [place], [address] Glucose [Mass/Vol] 105 mg/dL High 70-99 [facility] Comment on above: Order Comment: Order Date: 05/15/25Order Info: 0786-1 - CMPOrder Info: 3051-0 - M8IFthzm Info: 3016-3 - TSHOrder Info: 91534-9 - IBCOrder Info: 2276-02 - FEROrder Info: 2284-06 - FOLSOrder Info: 3024-7 - T4F Performed By: #### L 100.0100, L100.9950, L506.0400, L500.4050, L501.9520, L503.6030, L503.6550, L501.21211 ####[facility] [address] [place], [address] Potassium [Moles/Vol] 4.5 mmol/L Normal 3.3-5.1 [facility] Comment on above: Order Comment: Order Date: 05/15/25Order Info: 0786-1 - CMPOrder Info: 3051-0 - Z1JQroda Info: 6-3 - TSHOrder Info: - IBCOrder Info: 2276-02 - FEROrder Info: 2284-06 - FOLSOrder Info: 3023-7 - T4F Performed By: #### L 100.0100, L100.9950, L506.0400, L500.4050, L501.9520, L503.6030, L503.6550, L501.53955 ####[facility] [address] [place], [address] Sodium [Moles/Vol] 136 mmol/L Normal 133-145 [facility] Comment on above: Order Comment: Order Date: 05/15/25Order Info: 0786-1 - CMPOrder Info: 3051-0 - P0BRqndq Info: 6-3 - TSHOrder Info: 00352-9 - IBCOrder Info: 2276-02 - FEROrder Info: 2284-06 - FOLSOrder Info: 7 - T4F Performed By: #### L 100.0100, L100.9950, L506.0400, L500.4050, L501.9520, L503.6030, L503.6550, L501.13490 ####[facility] [address] [place], [address] T PROT 6.2 g/dL Normal 5.9-8.4 [facility] Comment on above: Order Comment: Order Date: 05/15/25Order Info: 0786-1 - CMPOrder Info: 0 - Y1PIzdpu Info: 3016-01 - TSHOrder Info: - IBCOrder Info: 2276-02 - FEROrder Info: 2284-06 - FOLSOrder Info: 3024-05 - T4F Performed By: #### L 100.0100, L100.9950, L506.0400, L500.4050, L501.9520, L503.6030, L503.6550, L501.89377 ####[facility] [address] [place], [place], [phone] Urea nitrogen [Mass/Vol] 26 mg/dL High 4-19 [facility] Comment on above: Order Comment: Order Date: 05/15/25Order Info: [id number] - CMPOrder Info: 0 - R1IRxqkq Info: 3016-01 - TSHOrder Info: - IBCOrder Info: 2276-02 - FEROrder Info: 2284-06 - FOLSOrder Info: 7 - T4F Performed By: #### L 100.0100, L100.9950, L506.0400, L500.4050, L501.9520, L503.6030, L503.6550, L501.80671 ####[facility] [address] [place], [place], [phone] Eosinophil percentageOrdered By: Daron Benton on 06-27-2025 Eosinophils/100 WBC (Bld) 9.3 % High 0-5 [facility] Erythrocyte distribution wid th ratioOrdered By: Daron Benton on 05-15-2025 Erythrocyte distribution width (RBC) [Ratio] 19.3 % High 11.6-14.6 [facility] Erythrocyte distribution wid th standard deviationOrdered By: Daron Benton on 05-15-2025 Erythrocyte distribution width (RBC) [Ratio] 61.2 fl High 35.1-43.9 [facility] Ferritinon 05-15-2025 Ferritin [Mass/Vol] 19 ng/mL Low 22-378 [facility] Comment on above: Order Comment: Order Date: 05/15/25Order Info: 0786-1 - CMPOrder Info: 3051-0 - X2RDewxf Info: 3016-3 - TSHOrder Info: 03310-4 - IBCOrder Info: 2276-4 - FEROrder Info: 2284-8 - FOLSOrder Info: 3024-7 - T4F Performed By: #### L 100.0100, L100.9950, L506.0400, L500.4050, L501.9520, L503.6030, L503.6550, L501.27903 ####[facility] [address] [place], [place], [address] Folate [Moles/volume] in Ser um or PlasmaOrdered By: Daron Benton on 05-15-2025 Folate [Moles/Vol] 8.24 ng/mL 4.60-34.80 [facility] Folates,Serum (Folic Acid)on 05-15-2025 FOLATES,SERUM 8.24 ng/mL Normal 4.60-34.80 [facility] Comment on above: Order Comment: N Performed By: #### L 3300.6750, L503.0106, L506.0200 ####[facility] [address] [place], [address] Free T3on 05-15-2025 Free T3 [Mass/Vol] 2.7 pg/mL Normal 2.18-3.98 [facility] Comment on above: Order Comment: Order Date: 05/15/25Order Info: 0786-1 - CMPOrder Info: 3051-0 - C3SHrffw Info: 3016-3 - TSHOrder Info: 40705-3 - IBCOrder Info: 2276-4 - FEROrder Info: 2288 - FOLSOrder Info: 3024-7 - T4F Performed By: #### L 100.0100, L100.9950, L506.0400, L500.4050, L501.9520, L503.6030, L503.6550, L501.85166 ####[facility] [address] [place], [place], [address] Free B2Wahfzim By: Daron swanson on 05-15-2025 Free T3 [Mass/Vol] 2.7 pg/mL 2.18-3.98 [facility] Glomerular filtration rate ( GFR) estimation/1.73 sq m using serum, plasma, or whole bOrdered By: Daron Benton on 05-15-2025 GFR/1.73 sq M.predicted among non-blacks MDRD (S/P/Bld) [Vol rate/Area] 52 mL/min/{1.73_m2} Low >60 [facility] Hematocrit Auto (Bld) [Volum e fraction]Ordered By: Daron Benton on 05-15-2025 Hematocrit (Bld) [Volume fraction] 24.4 % Low 37-47 [facility] Hemoglobin measurementOrdere d By: Daron Benton on 05-15-2025 Hemoglobin (Bld) [Mass/Vol] 7.4 g/dL Low 12.0-15.0 [facility] Hypochromatic red blood cell detectionOrdered By: Daron Benton on 05-15-2025 Hypochromia Ql (Bld) 1+ [facility] Immature granulocytes/100 WB C Auto (Bld)Ordered By: Daron Benton on 05-15-2025 Immature granulocytes/100 WBC (Bld) 0.600 % 0.0-0.9 [facility] Iron measurement (mass/mass) Ordered By: Daron Benton on 05-15-2025 Iron (Unsp spec) [Mass/Mass] 48 ug/dL Low 50-170 [facility] Iron+Iron Binding Capacityon 05-15-2025 Iron [Mass/Vol] 48 ug/dL Low 50-170 [facility] Comment on above: Order Comment: Order Date: 05/15/25Order Info: 86-1 - CMPOrder Info: 3051-0 - S1RNxmln Info: 6-3 - TSHOrder Info: 50101-7 - IBCOrder Info: 2276-02 - FEROrder Info: 2284-06 - FOLSOrder Info: 302-7 - T4F Performed By: #### L 100.0100, L100.9950, L506.0400, L500.4050, L501.9520, L503.6030, L503.6550, L501.20313 ####[facility] [address] [place], [place], [phone] IRON SATURATION 13.0 Normal 13-59 [facility] Comment on above: Order Comment: Order Date: 05/15/25Order Info: 785-1 - CMPOrder Info: 0 - C5DGjifv Info: 3 - TSHOrder Info: 23334-0 - IBCOrder Info: 2276-02 - FEROrder Info: 2284-06 - FOLSOrder Info: 3023-7 - T4F Performed By: #### L 100.0100, L100.9950, L506.0400, L500.4050, L501.9520, L503.6030, L503.6550, L501.37692 ####[facility] [address] [place], [place], [phone] TIBC 379 ug/dL Normal 250-450 [facility] Comment on above: Order Comment: Order Date: 05/15/25Order Info: 785-1 - CMPOrder Info: 3050-0 - C7QPvrpv Info: 6-3 - TSHOrder Info: 80737-8 - IBCOrder Info: 2276-02 - FEROrder Info: 2284-06 - FOLSOrder Info: 302-7 - T4F Performed By: #### L 100.0100, L100.9950, L506.0400, L500.4050, L501.9520, L503.6030, L503.6550, L501.38127 ####[facility] [address] [place], [place], [address] UIBC 331 ug/dL Normal 228-428 [facility] Comment on above: Order Comment: Order Date: 05/15/25Order Info: 0786-1 - CMPOrder Info: 3051-0 - S9ZRzbpp Info: 3016-3 - TSHOrder Info: 18698-9 - IBCOrder Info: 2276-4 - FEROrder Info: 2284-06 - FOLSOrder Info: 3024-7 - T4F Performed By: #### L 100.0100, L100.9950, L506.0400, L500.4050, L501.9520, L503.6030, L503.6550, L501.38130 ####[facility] [address] [place], [address] MCV (mean corpuscular volume ) determinationOrdered By: Daron Benton on 05-15-2025 MCV (RBC) [Entitic vol] 87.5 fL 81-99 [facility] Mean corpuscular hemoglobin (MCH) determinationOrdered By: Daron Benton on 05-15-2025 MCH (RBC) [Entitic mass] 26.5 pg Low 27.0-32.0 [facility] Monocyte percentageOrdered B y: Daron Benton on 05-15-2025 Monocytes/100 WBC (Bld) 5.9 % 0-10 [facility] Neutrophil percentageOrdered By: Daron Benton on 05-15-2025 Neutrophils/100 WBC (Bld) 70.4 % High 47-70 [facility] No Panel InformationOrdered By: Daron Benton on 05-15-2025 1+ [facility] 23 U/L <32 [facility] 331 ug/dL 228-428 [facility] Platelet countOrdered By: Alex Benton on 05-15-2025 Platelets (Bld) [#/Vol] 213 10*3/uL 150-450 [facility] Platelet estimateOrdered By: Daronchandler Benton on 05-15-2025 Platelets LM Ql (Bld) ADEQUATE ADEQ [facility] Potassium measurement (mass/ volume)Ordered By: Daron Benton on 05-15-2025 Potassium (Unsp spec) [Mass/Vol] 4.5 mmol/L 3.3-5.1 [facility] RBC Auto (Bld) [#/Vol]Ordere d By: Daron Benton on 05-15-2025 RBC (Bld) [#/Vol] 2.79 10*6/uL Low 4.2-5.4 [facility] Retic Panelon 05-15-2025 IM RET FRACTION 25.70 High 3.00-15.90 [facility] Comment on above: Order Comment: Order Date: 05/15/25Order Info: [id number] - CBCDOrder Info: [id number] - RETIC Performed By: #### L 100.0100, L100.9950, L506.0400, L500.4050, L501.9520, L503.6030, L503.6550, L501.95760 ####[facility] [address] [place], [place], [id number] RET-HE 25.2 pg Low 30-35 [facility] Comment on above: Order Comment: Order Date: 05/15/25Order Info: [id number] - CBCDOrder Info: [id number] - RETIC Performed By: #### L 100.0100, L100.9950, L506.0400, L500.4050, L501.9520, L503.6030, L503.6550, L501.02615 ####[facility] [address] [place], [place], [id number] Retic Count 4.47 High 0.5-1.5 [facility] Comment on above: Order Comment: Order Date: 05/15/25Order Info: [id number] - CBCDOrder Info: [id number] - RETIC Performed By: #### L 100.0100, L100.9950, L506.0400, L500.4050, L501.9544, L503.1759, L503.7450, L501.81602 ####[facility] [address] [place], [address] Reticulocyte hemoglobin equi valent (RET-He) measurementOrdered By: Daron Benton on 05-15-2025 Hemoglobin (Reticulocytes) [Entitic mass] 25.2 pg Low 30-35 [facility] Reticulocytes Auto (Bld) [#/ Vol]Ordered By: Daron Benton on 05-15-2025 Reticulocytes/100 RBC (Bld) 4.47 % High 0.5-1.5 [facility] Serum creatinine measurement (mass/volume)Ordered By: Daron Benton on 05-15-2025 Creatinine [Mass/Vol] 1.13 mg/dL 0.70-1.20 [facility] Serum globulin measurementOr dered By: Daron Benton on 05-15-2025 Globulin (S) [Mass/Vol] 2.3 g/dL 2.2-4.2 [facility] Serum glucose measurement (m ass/volume)Ordered By: Daron Benton on 05-15-2025 Glucose [Mass/Vol] 105 mg/dL High 70-99 [facility] Serum or plasma alanine pizarro otransferase (ALT) measurementOrdered By: Daron Benton on 05-15-2025 ALT [Catalytic activity/Vol] 14 U/L <35 [facility] Serum or plasma albumin stefania urement (mass/volume)Ordered By: Daron Benton on 05-15-2025 Albumin [Mass/Vol] 3.9 g/dL 3.4-4.8 [facility] Serum or plasma albumin/glob ulin mass ratioOrdered By: Daron Benton on 05-15-2025 Albumin/Globulin [Mass ratio] 1.7 {ratio} 0.9-2.4 [facility] Serum or plasma alkaline anthony sphatase measurementOrdered By: Daron Benton on 05-15-2025 ALP [Catalytic activity/Vol] 102 U/L 35-104 [facility] Serum or plasma calcium stefania urement (mass/volume)Ordered By: Daron Benton on 05-15-2025 Calcium [Mass/Vol] 9.1 mg/dL 7.6-11.0 [facility] Serum or plasma ferritin felicia surement (mass/volume)Ordered By: Daron Benton on 05-15-2025 Ferritin [Mass/Vol] 19 ng/mL Low 22-378 [facility] Serum or plasma iron saturat ion measurement (mass fraction)Ordered By: Daron Benton on 05-15-2025 Iron saturation [Mass fraction] 13.0 % 13-59 [facility] Serum or plasma thyroperoxid ase antibody assay (units/volume)Ordered By: Daron Benton on 05-15-2025 TPO Ab Qn [IU]/mL 0-34 [facility] Serum or plasma urea nitroge n measurement (mass/volume)Ordered By: Daron Benton on 05-15-2025 Urea nitrogen [Mass/Vol] 26 mg/dL High 4-19 [facility] Sodium levelOrdered By: Daron Benton on 05-15-2025 Sodium [Moles/Vol] 136 mmol/L 133-145 [facility] T4 Free Directon 05-15-2025 T4 FREE DIRECT 1.50 ng/dL High 0.76-1.46 [facility] Comment on above: Order Comment: Order Date: 05/15/25Order Info: [id number] - CMPOrder Info: [id number] - P2TCubkx Info: [id number] - TSHOrder Info: [id number] - IBCOrder Info: [id number] - FEROrder Info: [id number] - FOLSOrder Info: [id number] - T4F Performed By: #### L 100.0100, L100.9950, L506.0400, L500.4050, L501.9520, L503.6030, L503.6550, L501.90089 ####[facility] [address] [place], [place], [address] T4 freeOrdered By: Daron swanson on 05-15-2025 Free T4 [Mass/Vol] 1.50 ng/dL High 0.76-1.46 [facility] TSH DL <= 0.005 mIU/L QnOrde red By: Daron Benton on 05-15-2025 TSH Qn 1.680 uIU/mL 0.300-4.20 0 [facility] Thyroid Stim Hormone (TSH)on 05-15-2025 TSH 1.680 uIU/mL Normal 0.300-4.20 0 [facility] Comment on above: Order Comment: Order Date: 05/15/25Order Info: [id number] - CMPOrder Info: [id number] - S2THymft Info: [id number] - TSHOrder Info: - IBCOrder Info: [id number] - FEROrder Info: [id number] - FOLSOrder Info: [id number] - T4F Performed By: #### L 100.0100, L100.9950, L506.0400, L500.4050, L501.9520, L503.6030, L503.6550, L501.61563 ####[facility] [address] [place], [place], [id number] Total proteinOrdered By: Nila Benton on 05-15-2025 Protein [Mass/Vol] 6.2 g/dL 5.9-8.4 [facility] Vitamin B12on 05-15-2025 Cobalamin (Vitamin B12) [Mass/Vol] 366 pg/mL Normal 180-914 [facility] Comment on above: Order Comment: Order Date: 05/15/25Order Info: [id number] - CMPOrder Info: [id number] - T3SErpeg Info: [id number] - TSHOrder Info: - IBCOrder Info: [id number] - FEROrder Info: [id number] - FOLSOrder Info: [id number] - T4F Performed By: #### L 3300.6750, L503.0106, L506.0200 ####[facility] [address] [place], [place], [id number] Vitamin B12 ser/plasOrdered By: Daron Benton on 05-15-2025 Cobalamin (Vitamin B12) [Mass/Vol] 366 pg/mL 180-914 [facility] White blood cell (WBC) count Ordered By: Daron Benton on 05-15-2025 WBC (Bld) [#/Vol] 8.4 10*3/uL 4.4-11.0 [facility] 36on 05-06-2025 36 Faxed New Auth to [facility] @ [phone], Valid 05/06/25 Thru 07/05/25 Brain MRI wo Contrast. Normal [facility] Gastroenterology Visit Repor ton 05-06-2025 Gastroenterology Visit Report Normal [facility] 36on 05-05-2025 36 [facility] Contact phone number: [phone] Relationship to Patient: Imaging Provider: Robert Practice: neuro Chief Complaint/Reason for Call: Viki states patients prior auth is expiring and will need a new one for patient schedule MRI on 05/20 @130 fax # [phone]. Normal [facility] 36on 04-24-2025 36 Baclofen 20mg sent t o Marc in [place]. Normal [facility] 36 Name of caller: Parvez santos Contact phone number: [phone] Relationship to Patient: patient Provider: AURORA Lynn Practice: Neurology Chief Complaint/Reason for Call: Angélica advised that she just got out of the hospital, and she needs her Baclofen script sent in to her [facility] [address] [place] [address], [place] - [address] [[id number]]. She does not use the [facility] any longer, and she is completely out. Best time of day caller can be reached: any Patient advised that office/PCP has 24-48 business hours to return their call: Yes [facility] Anion gap in Serum or Plasma Ordered By: Roman Mckeon on 04-22-2025 Anion gap [Moles/Vol] 12 mmol/L 5-15 [facility] BUN/creatinine ratioOrdered By: Roman Mckeon on 04-22-2025 Urea nitrogen/Creatinine [Mass ratio] 7.0 mg/mg Low 10-20 [facility] Basic Metabolic Profile (BMP )on 04-22-2025 BUN/CRE 7.0 RATIO Low - [facility] Comment on above: Performed By: #### L 500.2500, L100.0500 ####[facility] [address] [place], [address] Calcium [Mass/Vol] 8.3 mg/dL Normal 7.6-11.0 [facility] Comment on above: Performed By: #### L 500.2500, L100.0500 ####[facility] [address] [place], [address] Chloride [Moles/Vol] 107 mmol/L Normal 98-108 [facility] Comment on above: Performed By: #### L 500.2500, L100.0500 ####[facility] [address] [place], [address] CO2 [Moles/Vol] 18.8 mmol/L Low 21.0-32.0 [facility] Comment on above: Performed By: #### L 500.2500, L100.0500 ####[facility] [address], [address] Creatinine [Mass/Vol] 1.08 mg/dL Normal 0.70-1.20 [facility] Comment on above: Performed By: #### L 500.2500, L100.0500 ####[facility] [address] [place], [address] ECRCL 34.97 ml/min Low 50-250 [facility] Comment on above: Performed By: #### L 500.2500, L100.0500 ####[facility] [address] [place], [address] GAP 12 Normal 5-15 [facility] Comment on above: Performed By: #### L 500.2500, L100.0500 ####[facility] [address] [place], [address] GFR/1.73 sq M.predicted among non-blacks MDRD (S/P/Bld) [Vol rate/Area] 55 mL/min/{1.73_m2} Low >60 [facility] Comment on above: Result Comment: mL/m in/1.73m2 CKD-EPI Creatinine Equation (2020) Performed By: #### L 500.2500, L100.0500 ####[facility] [address] [place], [address] Glucose [Mass/Vol] 89 mg/dL Normal 70-99 [facility] Comment on above: Performed By: #### L 500.2500, L100.0500 ####[facility] [address] [place], [address] Potassium [Moles/Vol] 3.8 mmol/L Normal 3.3-5.1 [facility] Comment on above: Performed By: #### L 500.2500, L100.0500 ####[facility] [address] [place], [address] Sodium [Moles/Vol] 137 mmol/L Normal 133-145 [facility] Comment on above: Performed By: #### L 500.2500, L100.0500 ####[facility] [address] [place], [address] Urea nitrogen [Mass/Vol] 8 mg/dL Normal 4-19 [facility] Comment on above: Performed By: #### L 500.2500, L100.0500 ####[facility] [address] [place], [address] CBC-Complete Blood Cnt No Di ffon 04-22-2025 Erythrocyte distribution width (RBC) [Ratio] 17.5 % High 11.6-14.6 [facility] Comment on above: Performed By: #### L 500.2500, L100.0500 ####[facility] [address] [place], [address] Hematocrit (Bld) [Volume fraction] 29.2 % Low 37-47 [facility] Comment on above: Performed By: #### L 500.2500, L100.0500 ####[facility] [address] [place], [address] Hemoglobin (Bld) [Mass/Vol] 9.4 g/dL Low 12.0-15.0 [facility] Comment on above: Performed By: #### L 500.2500, L100.0500 ####[facility] [address] [place], [address] MCH (RBC) [Entitic mass] 26.8 pg Low 27.0-32.0 [facility] Comment on above: Performed By: #### L 500.2500, L100.0500 ####[facility] [address] [place], [address] MCHC (RBC) [Mass/Vol] 32.2 g/dL Normal 32-36 [facility] Comment on above: Performed By: #### L 500.2500, L100.0500 ####[facility] [address] [place], [address] MCV (RBC) [Entitic vol] 83.2 fL Normal 81-99 [facility] Comment on above: Performed By: #### L 500.2500, L100.0500 ####[facility] [address] [place], [address] Platelet mean volume (Bld) [Entitic vol] 9.7 fL Normal 6.2-12.0 [facility] Comment on above: Performed By: #### L 500.2500, L100.0500 ####[facility] [address] [place], [address] Platelets (Bld) [#/Vol] 152 10*3/uL Normal 150-450 [facility] Comment on above: Performed By: #### L 500.2500, L100.0500 ####[facility] [address] [place], [address] RBC (Bld) [#/Vol] 3.51 10*6/uL Low 4.2-5.4 [facility] Comment on above: Performed By: #### L 500.2500, L100.0500 ####[facility] [address] [place], [address] RDW SD 52.6 fl High 35.1-43.9 [facility] Comment on above: Performed By: #### L 500.2500, L100.0500 ####[facility] [address] [place], [address] WBC (Bld) [#/Vol] 7.1 10*3/uL Normal 4.4-11.0 [facility] Comment on above: Performed By: #### L 500.2500, L100.0500 ####[facility] [address] [place], [address] Carbon dioxide, total [Moles /volume] in Central venous bloodOrdered By: Roman Mckeon on 04-22-2025 CO2 [Moles/Vol] 18.8 mmol/L Low 21.0-32.0 [facility] Chloride assayOrdered By: Edgar Mckeon on 04-22-2025 Chloride [Moles/Vol] 107 mmol/L 98-108 [facility] Colonoscopy Reporton 025 Colonoscopy Report Normal [facility] Erythrocyte distribution wid th ratioOrdered By: Roman Mckeon on 04-22-2025 Erythrocyte distribution width (RBC) [Ratio] 17.5 % High 11.6-14.6 [facility] Erythrocyte distribution wid th standard deviationOrdered By: Roman Mckeon on 04-22-2025 Erythrocyte distribution width (RBC) [Ratio] 52.6 fl High 35.1-43.9 [facility] Glomerular filtration rate ( GFR) estimation/1.73 sq m using serum, plasma, or whole bOrdered By: Roman Mckeon on 04-22-2025 GFR/1.73 sq M.predicted among non-blacks MDRD (S/P/Bld) [Vol rate/Area] 55 mL/min/{1.73_m2} Low >60 [facility] Hematocrit Auto (Bld) [Volum e fraction]Ordered By: Roman Mckeon on 04-22-2025 Hematocrit (Bld) [Volume fraction] 29.2 % Low 37-47 [facility] Hemoglobin measurementOrdere d By: Roman Mckeon on 04-22-2025 Hemoglobin (Bld) [Mass/Vol] 9.4 g/dL Low 12.0-15.0 [facility] MCV (mean corpuscular volume ) determinationOrdered By: Roman Mckeon on 04-22-2025 MCV (RBC) [Entitic vol] 83.2 fL 81-99 [facility] MR/POSTOP.ANEon 04-22-2025 MR/POSTOP.ANE Normal [facility] Mean corpuscular hemoglobin (MCH) determinationOrdered By: Roman Mckeon on 04-22-2025 MCH (RBC) [Entitic mass] 26.8 pg Low 27.0-32.0 [facility] Platelet countOrdered By: Edgar Mckeon on 04-22-2025 Platelets (Bld) [#/Vol] 152 10*3/uL 150-450 [facility] Potassium measurement (mass/ volume)Ordered By: Roman Mckeon on 04-22-2025 Potassium (Unsp spec) [Mass/Vol] 3.8 mmol/L 3.3-5.1 [facility] RBC Auto (Bld) [#/Vol]Ordere d By: Roman Mckeon on 04-22-2025 RBC (Bld) [#/Vol] 3.51 10*6/uL Low 4.2-5.4 [facility] Serum creatinine measurement (mass/volume)Ordered By: Roman Mckeon on 04-22-2025 Creatinine [Mass/Vol] 1.08 mg/dL 0.70-1.20 [facility] Serum glucose measurement (m ass/volume)Ordered By: Roman Mckeon on 04-22-2025 Glucose [Mass/Vol] 89 mg/dL 70-99 [facility] Serum or plasma calcium stefania urement (mass/volume)Ordered By: Roman Mckeon on 04-22-2025 Calcium [Mass/Vol] 8.3 mg/dL 7.6-11.0 [facility] Serum or plasma urea nitroge n measurement (mass/volume)Ordered By: Roman Mckeon on 04-22-2025 Urea nitrogen [Mass/Vol] 8 mg/dL 4-19 [facility] Sodium levelOrdered By: Domingo Mckeon on 04-22-2025 Sodium [Moles/Vol] 137 mmol/L 133-145 [facility] Surgery Specimen Level Willi 04-22-2025 Surgery Specimen Level IV Normal [facility] Comment on above: Performed By: #### P SUIV ####[facility] [address] [place], [address] White blood cell (WBC) count Ordered By: Roman Mckeon on 04-22-2025 WBC (Bld) [#/Vol] 7.1 10*3/uL 4.4-11.0 [facility] Basic Metabolic Profile (BMP )on 04-21-2025 BUN/CRE 9.9 RATIO Low 10-20 [facility] Comment on above: Performed By: #### L 100.0500, L500.2500 ####[facility] [address] [place], [address] Calcium [Mass/Vol] 8.7 mg/dL Normal 7.6-11.0 [facility] Comment on above: Performed By: #### L 100.0500, L500.2500 ####[facility] [address] [place], [address] Chloride [Moles/Vol] 107 mmol/L Normal 98-108 [facility] Comment on above: Performed By: #### L 100.0500, L500.2500 ####[facility] [address] [place], [address] CO2 [Moles/Vol] 24.7 mmol/L Normal 21.0-32.0 [facility] Comment on above: Performed By: #### L 100.0500, L500.2500 ####[facility] [address] [place], [address] Creatinine [Mass/Vol] 1.21 mg/dL High 0.70-1.20 [facility] Comment on above: Performed By: #### L 100.0500, L500.2500 ####[facility] [address] [place], [address] ECRCL 31.21 ml/min Low 50-250 [facility] Comment on above: Performed By: #### L 100.0500, L500.2500 ####[facility] [address] [place], [address] GAP 9 Normal 5-15 [facility] Comment on above: Performed By: #### L 100.0500, L500.2500 ####[facility] [address] [place], [address] GFR/1.73 sq M.predicted among non-blacks MDRD (S/P/Bld) [Vol rate/Area] 48 mL/min/{1.73_m2} Low >60 [facility] Comment on above: Result Comment: mL/m in/1.73m2 CKD-EPI Creatinine Equation (2020) Performed By: #### L 100.0500, L500.2500 ####[facility] [address] [place], [address] Glucose [Mass/Vol] 85 mg/dL Normal 70-99 [facility] Comment on above: Performed By: #### L 100.0500, L500.2500 ####[facility] [address] [place], [address] Potassium [Moles/Vol] 3.1 mmol/L Low 3.3-5.1 [facility] Comment on above: Performed By: #### L 100.0500, L500.2500 ####[facility] [address] [place], [address] Sodium [Moles/Vol] 141 mmol/L Normal 133-145 [facility] Comment on above: Performed By: #### L 100.0500, L500.2500 ####[facility] [address], [address] Urea nitrogen [Mass/Vol] 12 mg/dL Normal 4-19 [facility] Comment on above: Performed By: #### L 100.0500, L500.2500 ####[facility] [address] [place], [address] Bedside Glucoseon 04-21-2025 FINGERSTICK GLU 109 mg/dL High 74-106 [facility] Comment on above: Result Comment: YONY HARTMANN OF PATIENT CARE PER NURSING PROTOCOL Performed By: #### L 501.080 ####[facility] [address] [place], [address] Brain/Head without Contrasto n 04-21-2025 Brain/Head without Contrast Normal [facility] CBC-Complete Blood Cnt No Di ffon 04-21-2025 Erythrocyte distribution width (RBC) [Ratio] 17.2 % High 11.6-14.6 [facility] Comment on above: Performed By: #### L 100.0500, L500.2500 ####[facility] [address] [place], [address] Hematocrit (Bld) [Volume fraction] 31.7 % Low 37-47 [facility] Comment on above: Performed By: #### L 100.0500, L500.2500 ####[facility] [address] [place], [address] Hemoglobin (Bld) [Mass/Vol] 10.1 g/dL Low 12.0-15.0 [facility] Comment on above: Performed By: #### L 100.0500, L500.2500 ####[facility] [address] [place], [address] MCH (RBC) [Entitic mass] 26.5 pg Low 27.0-32.0 [facility] Comment on above: Performed By: #### L 100.0500, L500.2500 ####[facility] [address] [place], [address] MCHC (RBC) [Mass/Vol] 31.9 g/dL Low 32-36 [facility] Comment on above: Performed By: #### L 100.0500, L500.2500 ####[facility] [address] [place], [address] MCV (RBC) [Entitic vol] 83.2 fL Normal 81-99 [facility] Comment on above: Performed By: #### L 100.0500, L500.2500 ####[facility] [address] [place], [address] Platelet mean volume (Bld) [Entitic vol] 9.4 fL Normal 6.2-12.0 [facility] Comment on above: Performed By: #### L 100.0500, L500.2500 ####[facility] [address] [place], [address] Platelets (Bld) [#/Vol] 174 10*3/uL Normal 150-450 [facility] Comment on above: Performed By: #### L 100.0500, L500.2500 ####[facility] [address] [place], [address] RBC (Bld) [#/Vol] 3.81 10*6/uL Low 4.2-5.4 [facility] Comment on above: Performed By: #### L 100.0500, L500.2500 ####[facility] [address] [place], [address] RDW SD 51.9 fl High 35.1-43.9 [facility] Comment on above: Performed By: #### L 100.0500, L500.2500 ####[facility] [address] [place], [address] WBC (Bld) [#/Vol] 5.3 10*3/uL Normal 4.4-11.0 [facility] Comment on above: Performed By: #### L 100.0500, L500.2500 ####[facility] [address] [place], [address] EGD Reporton 04-21-2025 EGD Report Normal [facility] deOrdered By: Roman Mckeon on 04-21-2025 Glucose [Mass/Vol] 109 mg/dL High 74-106 [facility] MR/POSTOP.ANEon 04-21-2025 MR/POSTOP.ANE Normal [facility] MR/[id number] 04-21-2025 MR/POSTOPAN2 Normal [facility] Stool Occult Blood iFOBon STOB Positive Normal [facility] Comment on above: Performed By: #### M 100.7900 ####[facility] [address] [place], [address] Stool gastrointestinal hemog lobin detection by immunologic methodOrdered By: Sachin Murillo on 04-21-2025 Lower GI hemoglobin IA Ql (Stl) Positive Abnormal [facility] Basic Metabolic Profile (BMP )on 04-20-2025 BUN/CRE 13.9 RATIO Normal 10-20 [facility] Comment on above: Performed By: #### L 500.2500, L501.5200, L501.2300, L501.9520, L100.0500 ####[facility] [address] [place], [address] Calcium [Mass/Vol] 8.8 mg/dL Normal 7.6-11.0 [facility] Comment on above: Performed By: #### L 500.2500, L501.5200, L501.2300, L501.9520, L100.0500 ####[facility] [address] [place], [address] Chloride [Moles/Vol] 106 mmol/L Normal 98-108 [facility] Comment on above: Performed By: #### L 500.2500, L501.5200, L501.2300, L501.9520, L100.0500 ####[facility] [address] [place], [address] CO2 [Moles/Vol] 22.5 mmol/L Normal 21.0-32.0 [facility] Comment on above: Performed By: #### L 500.2500, L501.5200, L501.2300, L501.9520, L100.0500 ####[facility] [address] [place], [address] Creatinine [Mass/Vol] 1.23 mg/dL High 0.70-1.20 [facility] Comment on above: Performed By: #### L 500.2500, L501.5200, L501.2300, L501.9520, L100.0500 ####[facility] [address] [place], [address] ECRCL 30.70 ml/min Low 50-250 [facility] Comment on above: Performed By: #### L 500.2500, L501.5200, L501.2300, L501.9520, L100.0500 ####[facility] [address] [place], [address] GAP 12 Normal 5-15 [facility] Comment on above: Performed By: #### L 500.2500, L501.5200, L501.2300, L501.9520, L100.0500 ####[facility] [address] [place], [address] GFR/1.73 sq M.predicted among non-blacks MDRD (S/P/Bld) [Vol rate/Area] 47 mL/min/{1.73_m2} Low >60 [facility] Comment on above: Result Comment: mL/m in/1.73m2 CKD-EPI Creatinine Equation (2020) Performed By: #### L 500.2500, L501.5200, L501.2300, L501.9520, L100.0500 ####[facility] [address] [place], [address] Glucose [Mass/Vol] 75 mg/dL Normal 70-99 [facility] Comment on above: Performed By: #### L 500.2500, L501.5200, L501.2300, L501.9520, L100.0500 ####[facility] [address] [place], [address] Potassium [Moles/Vol] 3.4 mmol/L Normal 3.3-5.1 [facility] Comment on above: Performed By: #### L 500.2500, L501.5200, L501.2300, L501.9520, L100.0500 ####[facility] [address] [place], [address] Sodium [Moles/Vol] 140 mmol/L Normal 133-145 [facility] Comment on above: Performed By: #### L 500.2500, L501.5200, L501.2300, L501.9520, L100.0500 ####[facility] [address] [place], [address] Urea nitrogen [Mass/Vol] 17 mg/dL Normal 4-19 [facility] Comment on above: Performed By: #### L 500.2500, L501.5200, L501.2300, L501.9520, L100.0500 ####[facility] [address] [place], [address] CBC-Complete Blood Cnt No Di ffon 04-20-2025 Erythrocyte distribution width (RBC) [Ratio] 16.9 % High 11.6-14.6 [facility] Comment on above: Performed By: #### L 500.2500, L501.5200, L501.2300, L501.9520, L100.0500 ####[facility] [address] [place], [address] Hematocrit (Bld) [Volume fraction] 33.7 % Low 37-47 [facility] Comment on above: Performed By: #### L 500.2500, L501.5200, L501.2300, L501.9520, L100.0500 ####[facility] [address] [place], [address] Hemoglobin (Bld) [Mass/Vol] 10.6 g/dL Low 12.0-15.0 [facility] Comment on above: Performed By: #### L 500.2500, L501.5200, L501.2300, L501.9520, L100.0500 ####[facility] [address] [place], [address] MCH (RBC) [Entitic mass] 26.6 pg Low 27.0-32.0 [facility] Comment on above: Performed By: #### L 500.2500, L501.5200, L501.2300, L501.9520, L100.0500 ####[facility] [address] [place], [address] MCHC (RBC) [Mass/Vol] 31.5 g/dL Low 32-36 [facility] Comment on above: Performed By: #### L 500.2500, L501.5200, L501.2300, L501.9520, L100.0500 ####[facility] [address] [place], [address] MCV (RBC) [Entitic vol] 84.5 fL Normal 81-99 [facility] Comment on above: Performed By: #### L 500.2500, L501.5200, L501.2300, L501.9520, L100.0500 ####[facility] [address] [place], [address] Platelet mean volume (Bld) [Entitic vol] 9.9 fL Normal 6.2-12.0 [facility] Comment on above: Performed By: #### L 500.2500, L501.5200, L501.2300, L501.9520, L100.0500 ####[facility] [address] [place], [address] Platelets (Bld) [#/Vol] 146 10*3/uL Low 150-450 [facility] Comment on above: Performed By: #### L 500.2500, L501.5200, L501.2300, L501.9520, L100.0500 ####[facility] [address] [place], [address] RBC (Bld) [#/Vol] 3.99 10*6/uL Low 4.2-5.4 [facility] Comment on above: Performed By: #### L 500.2500, L501.5200, L501.2300, L501.9520, L100.0500 ####[facility] [address] [place], [address] RDW SD 52.5 fl High 35.1-43.9 [facility] Comment on above: Performed By: #### L 500.2500, L501.5200, L501.2300, L501.9520, L100.0500 ####[facility] [address] [place], [address] WBC (Bld) [#/Vol] 5.0 10*3/uL Normal 4.4-11.0 [facility] Comment on above: Performed By: #### L 500.2500, L501.5200, L501.2300, L501.9520, L100.0500 ####[facility] [address] [place], [place], [address] EGD Reporton 04-20-2025 EGD Report Normal [facility] Electrocardiogram reportOrde red By: Bhavik Smiley on 04-20-2025 EKG study [facility] Work Phone: MR/POSTOP.ANEon 04-20-2025 MR/POSTOP.ANE Normal [facility] MR/[id number] 04-20-2025 MR/POSTOPAN2 Normal [facility] Magnesiumon 04-20-2025 Magnesium [Mass/Vol] 2.2 mg/dL Normal 1.5-2.2 [facility] Comment on above: Performed By: #### L 500.2500, L501.5200, L501.2300, L501.9520, L100.0500 ####[facility] [address] [place], [place], [address] Magnesium measurement (mass/ volume)Ordered By: Roman Mckeon on 04-20-2025 Magnesium (Unsp spec) [Mass/Vol] 2.2 mg/dL 1.5-2.2 [facility] Phosphoruson 04-20-2025 Phosphate [Mass/Vol] 3.5 mg/dL Normal 2.7-4.5 [facility] Comment on above: Performed By: #### L 500.2500, L501.5200, L501.2300, L501.9520, L100.0500 ####[facility] [address] [place], [address] TSH DL <= 0.005 mIU/L QnOrde red By: Storm Gómez on 04-20-2025 TSH Qn 5.620 uIU/mL High 0.300-4.20 0 [facility] Thyroid Stim Hormone (TSH)on 04-20-2025 TSH 5.620 uIU/mL High 0.300-4.20 0 [facility] Comment on above: Performed By: #### L 500.2500, L501.5200, L501.2300, L501.9520, L100.0500 ####[facility] [address] [place], [address] Absolute lymphocyte countOrd ered By: Sachin Murillo on 04-19-2025 Lymphocytes Auto (Unsp spec) [#/Vol] 0.78 10*3/uL Low 0.83-4.51 [facility] Automated lymphocyte count a s percentage of total leukocytesOrdered By: Sachin Murillo on 04-19-2025 Lymphocytes/100 WBC Auto (Unsp spec) 11.1 % Low 19-41 [facility] Basic Metabolic Profile (BMP )on 04-19-2025 BUN/CRE 16.8 RATIO Normal 10-20 [facility] Comment on above: Performed By: #### L 100.0100, L500.2500 ####[facility] [address] [place], [address] Calcium [Mass/Vol] 8.1 mg/dL Normal 7.6-11.0 [facility] Comment on above: Performed By: #### L 100.0100, L500.2500 ####[facility] [address] [place], [address] Chloride [Moles/Vol] 106 mmol/L Normal 98-108 [facility] Comment on above: Performed By: #### L 100.0100, L500.2500 ####[facility] [address] [place], [address] CO2 [Moles/Vol] 22.1 mmol/L Normal 21.0-32.0 [facility] Comment on above: Performed By: #### L 100.0100, L500.2500 ####[facility] [address] [place], [address] Creatinine [Mass/Vol] 1.17 mg/dL Normal 0.70-1.20 [facility] Comment on above: Performed By: #### L 100.0100, L500.2500 ####[facility] [address] [place], [address] ECRCL 32.28 ml/min Low 50-250 [facility] Comment on above: Performed By: #### L 100.0100, L500.2500 ####[facility] [address] [place], [address] GAP 10 Normal 5-15 [facility] Comment on above: Performed By: #### L 100.0100, L500.2500 ####[facility] [address] [place], [address] GFR/1.73 sq M.predicted among non-blacks MDRD (S/P/Bld) [Vol rate/Area] 50 mL/min/{1.73_m2} Low >60 [facility] Comment on above: Result Comment: mL/m in/1.73m2 CKD-EPI Creatinine Equation (2020) Performed By: #### L 100.0100, L500.2500 ####[facility] [address] [place], [address] Glucose [Mass/Vol] 111 mg/dL High 70-99 [facility] Comment on above: Performed By: #### L 100.0100, L500.2500 ####[facility] [address] [place], [address] Potassium [Moles/Vol] 3.6 mmol/L Normal 3.3-5.1 [facility] Comment on above: Performed By: #### L 100.0100, L500.2500 ####[facility] [address] [place], [address] Sodium [Moles/Vol] 137 mmol/L Normal 133-145 [facility] Comment on above: Performed By: #### L 100.0100, L500.2500 ####[facility] [address], [address] Urea nitrogen [Mass/Vol] 20 mg/dL High 4-19 [facility] Comment on above: Performed By: #### L 100.0100, L500.2500 ####[facility] [address] [place], [address] Basophil percentageOrdered B y: Sachin Murillo on 04-19-2025 Basophils/100 WBC (Bld) 0.4 % 0-1 [facility] CBC W/Diff, Automatedon -2024 Absolute Lymph 0.78 X10 3/uL Low 0.83-4.51 [facility] Comment on above: Performed By: #### L 100.0100, L500.2500 ####[facility] [address] [place], [address] Absolute Neut 5.2 X10 3/uL Normal 2.0-7.7 [facility] Comment on above: Performed By: #### L 100.0100, L500.2500 ####[facility] [address] [place], [address] Basophils/100 WBC (Bld) 0.4 % Normal 0-1 [facility] Comment on above: Performed By: #### L 100.0100, L500.2500 ####[facility] [address] [place], [address] Eosinophils/100 WBC (Bld) 1.9 % Normal 0-5 [facility] Comment on above: Performed By: #### L 100.0100, L500.2500 ####[facility] [address] [place], [address] Erythrocyte distribution width (RBC) [Ratio] 17.0 % High 11.6-14.6 [facility] Comment on above: Performed By: #### L 100.0100, L500.2500 ####[facility] [address] [place], [address] Hematocrit (Bld) [Volume fraction] 29.4 % Low 37-47 [facility] Comment on above: Performed By: #### L 100.0100, L500.2500 ####[facility] [address] [place], [address] Hemoglobin (Bld) [Mass/Vol] 9.5 g/dL Low 12.0-15.0 [facility] Comment on above: Performed By: #### L 100.0100, L500.2500 ####[facility] [address] [place], [address] IG% 0.400 Normal 0.0-0.9 [facility] Comment on above: Result Comment: IG% - Immature Granulocytes (promyelocytes, myelocytes andmetamyelocytes) > 1% indicates that a LEFT SHIFT is Present. Performed By: #### L 100.0100, L500.2500 ####[facility] [address] [place], [address] Lymphocytes/100 WBC (Bld) 11.1 % Low 19-41 [facility] Comment on above: Performed By: #### L 100.0100, L500.2500 ####[facility] [address] [place], [address] MCH (RBC) [Entitic mass] 27.1 pg Normal 27.0-32.0 [facility] Comment on above: Performed By: #### L 100.0100, L500.2500 ####[facility] [address] [place], [address] MCHC (RBC) [Mass/Vol] 32.3 g/dL Normal 32-36 [facility] Comment on above: Performed By: #### L 100.0100, L500.2500 ####[facility] [address] [place], [address] MCV (RBC) [Entitic vol] 84.0 fL Normal 81-99 [facility] Comment on above: Performed By: #### L 100.0100, L500.2500 ####[facility] [address] [place], [address] Monocytes/100 WBC (Bld) 11.3 % High 0-10 [facility] Comment on above: Performed By: #### L 100.0100, L500.2500 ####[facility] [address] [place], [address] Neutrophils/100 WBC (Bld) 74.9 % High 47-70 [facility] Comment on above: Performed By: #### L 100.0100, L500.2500 ####[facility] [address] [place], [address] Nucleated RBC (Bld) [#/Vol] 0.3 10*3/uL Normal 0-5 [facility] Comment on above: Performed By: #### L 100.0100, L500.2500 ####[facility] [address] [place], [address] Platelet mean volume (Bld) [Entitic vol] 9.8 fL Normal 6.2-12.0 [facility] Comment on above: Performed By: #### L 100.0100, L500.2500 ####[facility] [address] [place], [address] Platelets (Bld) [#/Vol] 133 10*3/uL Low 150-450 [facility] Comment on above: Performed By: #### L 100.0100, L500.2500 ####[facility] [address] [place], [address] RBC (Bld) [#/Vol] 3.50 10*6/uL Low 4.2-5.4 [facility] Comment on above: Performed By: #### L 100.0100, L500.2500 ####[facility] [address] [place], [address] RDW SD 51.9 fl High 35.1-43.9 [facility] Comment on above: Performed By: #### L 100.0100, L500.2500 ####[facility] [address] [place], [address] WBC (Bld) [#/Vol] 7.0 10*3/uL Normal 4.4-11.0 [facility] Comment on above: Performed By: #### L 100.0100, L500.2500 ####[facility] [address] [place], [address] Eosinophil percentageOrdered By: Sachin Murillo on 04-19-2025 Eosinophils/100 WBC (Bld) 1.9 % 0-5 [facility] HH, Hemoglobin AND Hematocr iton 04-19-2025 HCT Normal 37-47 [facility] Comment on above: Result Comment: CBC BEING DONE H H IS IN CBC Performed By: #### L 100.0600 ####[facility] [address] [place], [address] HGB Normal 12.0-15.0 [facility] Comment on above: Result Comment: CBC BEING DONE H H IS IN CBC Performed By: #### L 100.0600 ####[facility] [address] [place], [address] Hematocrit (Bld) [Volume fraction] 20.6 % Low 37-47 [facility] Comment on above: Performed By: #### L 100.0600 ####[facility] [address] [place], [address] Hemoglobin (Bld) [Mass/Vol] 6.3 g/dL Low 12.0-15.0 [facility] Comment on above: Performed By: #### L 100.0600 ####[facility] [address] [place], [address] Immature granulocytes/100 WB C Auto (Bld)Ordered By: Sachin Lidia on 04-19-2025 Immature granulocytes/100 WBC (Bld) 0.400 % 0.0-0.9 [facility] L499.0043on 04-19-2025 Trop T High Sen 24 ng/L High <=14 [facility] Comment on above: Performed By: #### L 499.0043 ####[facility] [address] [place], [address] Lactic Acidon 04-19-2025 Lactate [Moles/Vol] mmol/L Normal 0.0-2.0 [facility] Comment on above: Performed By: #### L 503.6005 ####[facility] [address] [place], [place], [address] Monocyte percentageOrdered B y: Sachin Murillo on 04-19-2025 Monocytes/100 WBC (Bld) 11.3 % High 0-10 [facility] Neutrophil percentageOrdered By: Sachin Murillo on 04-19-2025 Neutrophils/100 WBC (Bld) 74.9 % High 47-70 [facility] 12 Lead EKGon 04-18-2025 12 Lead EKG Normal [facility] Absolute lymphocyte countOrd ered By: Jeffy Willoughby on 04-18-2025 Lymphocytes Auto (Unsp spec) [#/Vol] 0.83 10*3/uL 0.83-4.51 [facility] Absolute neutrophil countOrd ered By: Jeffy Willoughby on 04-18-2025 Neutrophils (Bld) [#/Vol] 7.0 10*3/uL 2.0-7.7 [facility] Anion gap in Serum or Plasma Ordered By: Jeffy Willoughby on 04-18-2025 Anion gap [Moles/Vol] 15 mmol/L 5-15 [facility] Automated lymphocyte count a s percentage of total leukocytesOrdered By: Jeffy Willoughby on 04-18-2025 Lymphocytes/100 WBC Auto (Unsp spec) 9.5 % Low 19-41 [facility] BRCon 04-18-2025 RC Normal [facility] Comment on above: Result Comment: [id number] OP RC TRANSFUSED 04/19/25 [id number] OP RC TRANSFUSED 04/19/25 0801 Performed By: #### B RC ####[facility] [address] [place], [address] BUN/creatinine ratioOrdered By: Jeffy Willoughby on 04-18-2025 Urea nitrogen/Creatinine [Mass ratio] 18.9 mg/mg 10-20 [facility] Basophil percentageOrdered B y: Jeffy Willoughby on 04-18-2025 Basophils/100 WBC (Bld) 0.6 % 0-1 [facility] Bedside Glucoseon 04-18-2025 FINGERSTICK GLU 121 mg/dL High 74-106 [facility] Comment on above: Result Comment: YONY HARTMANN OF PATIENT CARE PER NURSING PROTOCOL Performed By: #### L 501.080 ####[facility] [address] [place], [address] Bilirubin, totalOrdered By: Jeffy Willoughby on 04-18-2025 Bilirubin [Mass/Vol] 0.35 mg/dL 0.00-1.30 [facility] CBC W/Diff, Automatedon 03-21 Absolute Lymph 0.83 X10 3/uL Normal 0.83-4.51 [facility] Comment on above: Performed By: #### L 100.0100, L501.2450, L500.4050, L503.6005, BTS ####[facility] [address] [place], [address] Absolute Neut 7.0 X10 3/uL Normal 2.0-7.7 [facility] Comment on above: Performed By: #### L 100.0100, L501.2450, L500.4050, L503.6005, BTS ####[facility] [address] [place], [address] Basophils/100 WBC (Bld) 0.6 % Normal 0-1 [facility] Comment on above: Performed By: #### L 100.0100, L501.2450, L500.4050, L503.6005, BTS ####[facility] [address] [place], [address] Eosinophils/100 WBC (Bld) 0.5 % Normal 0-5 [facility] Comment on above: Performed By: #### L 100.0100, L501.2450, L500.4050, L503.6005, BTS ####[facility] [address] [place], [address] Erythrocyte distribution width (RBC) [Ratio] 17.3 % High 11.6-14.6 [facility] Comment on above: Performed By: #### L 100.0100, L501.2450, L500.4050, L503.6005, BTS ####[facility] [address] [place], [address] Hematocrit (Bld) [Volume fraction] 23.5 % Low 37-47 [facility] Comment on above: Performed By: #### L 100.0100, L501.2450, L500.4050, L503.6005, BTS ####[facility] [address] [place], [address] Hemoglobin (Bld) [Mass/Vol] 7.3 g/dL Low 12.0-15.0 [facility] Comment on above: Performed By: #### L 100.0100, L501.2450, L500.4050, L503.6005, BTS ####[facility] [address] [place], [address] IG% 0.500 Normal 0.0-0.9 [facility] Comment on above: Result Comment: IG% - Immature Granulocytes (promyelocytes, myelocytes andmetamyelocytes) > 1% indicates that a LEFT SHIFT is Present. Performed By: #### L 100.0100, L501.2450, L500.4050, L503.6005, BTS ####[facility] [address] [place], [address] Lymphocytes/100 WBC (Bld) 9.5 % Low 19-41 [facility] Comment on above: Performed By: #### L 100.0100, L501.2450, L500.4050, L503.6005, BTS ####[facility] [address] [place], [address] MCH (RBC) [Entitic mass] 24.6 pg Low 27.0-32.0 [facility] Comment on above: Performed By: #### L 100.0100, L501.2450, L500.4050, L503.6005, BTS ####[facility] [address] [place], [address] MCHC (RBC) [Mass/Vol] 31.1 g/dL Low 32-36 [facility] Comment on above: Performed By: #### L 100.0100, L501.2450, L500.4050, L503.6005, BTS ####[facility] [address] [place], [address] MCV (RBC) [Entitic vol] 79.1 fL Low 81-99 [facility] Comment on above: Performed By: #### L 100.0100, L501.2450, L500.4050, L503.6005, BTS ####[facility] [address] [place], [address] Monocytes/100 WBC (Bld) 9.4 % Normal 0-10 [facility] Comment on above: Performed By: #### L 100.0100, L501.2450, L500.4050, L503.6005, BTS ####[facility] [address] [place], [address] Neutrophils/100 WBC (Bld) 79.5 % High 47-70 [facility] Comment on above: Performed By: #### L 100.0100, L501.2450, L500.4050, L503.6005, BTS ####[facility] [address] [place], [address] Nucleated RBC (Bld) [#/Vol] 0.2 10*3/uL Normal 0-5 [facility] Comment on above: Performed By: #### L 100.0100, L501.2450, L500.4050, L503.6005, BTS ####[facility] [address] [place], [address] Platelet mean volume (Bld) [Entitic vol] 9.6 fL Normal 6.2-12.0 [facility] Comment on above: Performed By: #### L 100.0100, L501.2450, L500.4050, L503.6005, BTS ####[facility] [address] [place], [address] Platelets (Bld) [#/Vol] 195 10*3/uL Normal 150-450 [facility] Comment on above: Performed By: #### L 100.0100, L501.2450, L500.4050, L503.6005, BTS ####[facility] [address] [place], [address] RBC (Bld) [#/Vol] 2.97 10*6/uL Low 4.2-5.4 [facility] Comment on above: Performed By: #### L 100.0100, L501.2450, L500.4050, L503.6005, BTS ####[facility] [address] [place], [address] RDW SD 50.4 fl High 35.1-43.9 [facility] Comment on above: Performed By: #### L 100.0100, L501.2450, L500.4050, L503.6005, BTS ####[facility] [address] [place], [address] WBC (Bld) [#/Vol] 8.7 10*3/uL Normal 4.4-11.0 [facility] Comment on above: Performed By: #### L 100.0100, L501.2450, L500.4050, L503.6005, BTS ####[facility] [address] [place], [address] Carbon dioxide, total [Moles /volume] in Central venous bloodOrdered By: Jeffy Willoughby on 04-18-2025 CO2 [Moles/Vol] 21.0 mmol/L 21.0-32.0 [facility] Chloride assayOrdered By: Ug o Willoughby on 04-18-2025 Chloride [Moles/Vol] 97 mmol/L Low 98-108 [facility] Comprehensive Metabolic Prof ilon 04-18-2025 Albumin [Mass/Vol] 4.1 g/dL Normal 3.4-4.8 [facility] Comment on above: Performed By: #### L 100.0100, L501.2450, L500.4050, L503.6005, BTS ####[facility] [address] [place], [address] Albumin/Globulin [Mass ratio] 1.7 {ratio} Normal 0.9-2.4 [facility] Comment on above: Performed By: #### L 100.0100, L501.2450, L500.4050, L503.6005, BTS ####[facility] [address] [place], [address] ALK PHOS 88 U/L Normal 35-104 [facility] Comment on above: Performed By: #### L 100.0100, L501.2450, L500.4050, L503.6005, BTS ####[facility] [address] [place], [address] ALT [Catalytic activity/Vol] 8 U/L Normal <=34 [facility] Comment on above: Performed By: #### L 100.0100, L501.2450, L500.4050, L503.6005, BTS ####[facility] [address] [place], [address] AST [Catalytic activity/Vol] 16 U/L Normal <=31 [facility] Comment on above: Performed By: #### L 100.0100, L501.2450, L500.4050, L503.6005, BTS ####[facility] [address] [place], [address] Bilirubin [Mass/Vol] 0.35 mg/dL Normal 0.00-1.30 [facility] Comment on above: Performed By: #### L 100.0100, L501.2450, L500.4050, L503.6005, BTS ####[facility] [address] [place], [address] BUN/CRE 18.9 RATIO Normal 10-20 [facility] Comment on above: Performed By: #### L 100.0100, L501.2450, L500.4050, L503.6005, BTS ####[facility] [address] [place], [address] Calcium [Mass/Vol] 9.0 mg/dL Normal 7.6-11.0 [facility] Comment on above: Performed By: #### L 100.0100, L501.2450, L500.4050, L503.6005, BTS ####[facility] [address], [address] Chloride [Moles/Vol] 97 mmol/L Low 98-108 [facility] Comment on above: Performed By: #### L 100.0100, L501.2450, L500.4050, L503.6005, BTS ####[facility] [address] [place], [address] CO2 [Moles/Vol] 21.0 mmol/L Normal 21.0-32.0 [facility] Comment on above: Performed By: #### L 100.0100, L501.2450, L500.4050, L503.6005, BTS ####[facility] [address] [place], [address] Creatinine [Mass/Vol] 1.28 mg/dL High 0.70-1.20 [facility] Comment on above: Performed By: #### L 100.0100, L501.2450, L500.4050, L503.6005, BTS ####[facility] [address] [place], [address] ECRCL 29.72 ml/min Low 50-250 [facility] Comment on above: Performed By: #### L 100.0100, L501.2450, L500.4050, L503.6005, BTS ####[facility] [address] [place], [address] GAP 15 Normal 5-15 [facility] Comment on above: Performed By: #### L 100.0100, L501.2450, L500.4050, L503.6005, BTS ####[facility] [address] [place], [address] GFR/1.73 sq M.predicted among non-blacks MDRD (S/P/Bld) [Vol rate/Area] 45 mL/min/{1.73_m2} Low >60 [facility] Comment on above: Result Comment: mL/m in/1.73m2 CKD-EPI Creatinine Equation (2020) Performed By: #### L 100.0100, L501.2450, L500.4050, L503.6005, BTS ####[facility] [address] [place], [address] Globulin (S) [Mass/Vol] 2.4 g/dL Normal 2.2-4.2 [facility] Comment on above: Performed By: #### L 100.0100, L501.2450, L500.4050, L503.6005, BTS ####[facility] [address] [place], [address] Glucose [Mass/Vol] 135 mg/dL High 70-99 [facility] Comment on above: Performed By: #### L 100.0100, L501.2450, L500.4050, L503.6005, BTS ####[facility] [address] [place], [address] Potassium [Moles/Vol] 3.8 mmol/L Normal 3.3-5.1 [facility] Comment on above: Performed By: #### L 100.0100, L501.2450, L500.4050, L503.6005, BTS ####[facility] [address] [place], [address] Sodium [Moles/Vol] 133 mmol/L Normal 133-145 [facility] Comment on above: Performed By: #### L 100.0100, L501.2450, L500.4050, L503.6005, BTS ####[facility] [address] [place], [address] T PROT 6.4 g/dL Normal 5.9-8.4 [facility] Comment on above: Performed By: #### L 100.0100, L501.2450, L500.4050, L503.6005, BTS ####[facility] [address] [place], [address] Urea nitrogen [Mass/Vol] 24 mg/dL High 4-19 [facility] Comment on above: Performed By: #### L 100.0100, L501.2450, L500.4050, L503.6005, BTS ####[facility] [address] [place], [place], [id number] Emergency Department Summary on 04-18-2025 Emergency Department Summary Normal [facility] Eosinophil percentageOrdered By: Jeffyaura Willoughby on 04-18-2025 Eosinophils/100 WBC (Bld) 0.5 % 0-5 [facility] Erythrocyte distribution wid th ratioOrdered By: Jeffyaura Willoughby on 04-18-2025 Erythrocyte distribution width (RBC) [Ratio] 17.3 % High 11.6-14.6 [facility] Erythrocyte distribution wid th standard deviationOrdered By: Jeffyaura Willoughby on 04-18-2025 Erythrocyte distribution width (RBC) [Ratio] 50.4 fl High 35.1-43.9 [facility] Ferritinon 04-18-2025 Ferritin [Mass/Vol] 12 ng/mL Low 22-378 [facility] Comment on above: Performed By: #### L 503.6550, L503.6037 ####[facility] [address] [place], [place], [address] Glomerular filtration rate ( GFR) estimation/1.73 sq m using serum, plasma, or whole bOrdered By: Jeffy Willoughby on 04-18-2025 GFR/1.73 sq M.predicted among non-blacks MDRD (S/P/Bld) [Vol rate/Area] 45 mL/min/{1.73_m2} Low >60 [facility] Comment on above: mL/min/1.73m2 CKD-EP I Creatinine Equation (2020) Glucose measurement at bedsi deOrdered By: Jeffy Willoughby on 04-18-2025 Glucose [Mass/Vol] 121 mg/dL High 74-106 [facility] Comment on above: MANAGEMENT OF PATIEN T CARE PER NURSING PROTOCOL H AND P Exam - Hospitaliston 04-18-2025 H&P Exam - Hospitalist Normal [facility] Hematocrit Auto (Bld) [Volum e fraction]Ordered By: Jeffy Willoughby on 04-18-2025 Hematocrit (Bld) [Volume fraction] 23.5 % Low 37-47 [facility] Hemoglobin measurementOrdere d By: Jeffy Willoughby on 04-18-2025 Hemoglobin (Bld) [Mass/Vol] 7.3 g/dL Low 12.0-15.0 [facility] Immature granulocytes/100 WB C Auto (Bld)Ordered By: Jeffy Willoughby on 04-18-2025 Immature granulocytes/100 WBC (Bld) 0.500 % 0.0-0.9 [facility] Comment on above: IG% - Immature Granu locytes (promyelocytes, myelocytes and metamyelocytes) > 1% indicates that a LEFT SHIFT is Present. Iron measurement (mass/mass) Ordered By: Sachin Murillo on 04-18-2025 Iron (Unsp spec) [Mass/Mass] 16 ug/dL Low 50-170 [facility] Iron+Iron Binding Capacityon 04-18-2025 Iron [Mass/Vol] 16 ug/dL Low 50-170 [facility] Comment on above: Performed By: #### L 503.6550, L503.6030 ####[facility] [address] [place], [address] IRON SATURATION 4.0 Low 13-59 [facility] Comment on above: Performed By: #### L 503.6550, L503.6030 ####[facility] [address] [place], [address] TIBC 372 ug/dL Normal 250-450 [facility] Comment on above: Performed By: #### L 503.6550, L503.6030 ####[facility] [address] [place], [address] UIBC 356 ug/dL Normal 228-428 [facility] Comment on above: Performed By: #### L 503.6550, L503.6030 ####[facility] [address] [place], [place], [address] L499.0042on 04-18-2025 Trop T High Sen 24 ng/L High <=14 [facility] Comment on above: Performed By: #### L 499.0042 ####[facility] [address] [place], [place], [address] L501.4021on 04-18-2025 Trop T High Sen 30 ng/L High <=14 [facility] Comment on above: Performed By: #### L 501.4021 ####[facility] [address] [place], [place], [address] Laboratory - Chemistry and C hemistry - challengeOrdered By: Jeffy Willoughby on 04-18-2025 AST [Catalytic activity/Vol] 16 U/L <32 [facility] Lactic Acidon 04-18-2025 Lactate [Moles/Vol] 2.6 mmol/L Invalid Interpretation Code 0.0-2.0 [facility] Comment on above: Order Comment: Y Result Comment: Crit ical Result(s) Called LSPARR at: 1945 by:DIOGO??Results read back by same. Performed By: #### L 100.0100, L501.2450, L500.4050, L503.6005, BTS ####[facility] [address] [place], [place], [address] Lactic acid measurementOrder ed By: Jeffy Willoughby on 04-18-2025 Lactate [Moles/Vol] 2.6 mmol/L High 0.0-2.0 [facility] Comment on above: Critical Result(s) C alled LSPARR at: 1945 by: DIOGO Results read back by same. Lipaseon 04-18-2025 Lipase [Catalytic activity/Vol] 15 U/L Normal 13-75 [facility] Comment on above: Result Comment: Stacy pringle note:LIPASE revised reference range effective 23.New Lipase methodology. Expected to produce lower valuesthan the previous assay method.NEW Reference Range: 13 - 75 U/L Performed By: #### L 100.0100, L501.2450, L500.4050, L503.6005, BTS ####[facility] [address] [place], [address] Lipase measurementOrdered By : Jeffy Willoughby on 04-18-2025 Lipase [Catalytic activity/Vol] 15 U/L 13-75 [facility] Comment on above: Please note:LIPASE r evised reference range effective 23. New Lipase methodology. Expected to produce lower values than the previous assay method. NEW Reference Range: 13 - 75 U/L MCV (mean corpuscular volume ) determinationOrdered By: Jeffy Willoughby on 04-18-2025 MCV (RBC) [Entitic vol] 79.1 fL Low 81-99 [facility] Mean corpuscular hemoglobin (MCH) determinationOrdered By: Jeffyaura Willoughby on 04-18-2025 MCH (RBC) [Entitic mass] 24.6 pg Low 27.0-32.0 [facility] Mean corpuscular hemoglobin concentration (MCHC) determinationOrdered By: Jeffy Willoughby on 04-18-2025 MCHC (RBC) [Mass/Vol] 31.1 g/dL Low 32-36 [facility] Mean platelet volume determi nationOrdered By: Jeffy Willoughby on 04-18-2025 Platelet mean volume (Bld) [Entitic vol] 9.6 fL 6.2-12.0 [facility] Monocyte percentageOrdered B y: Jeffy Willoughby on 04-18-2025 Monocytes/100 WBC (Bld) 9.4 % 0-10 [facility] Neutrophil percentageOrdered By: Jeffy Willoughby on 04-18-2025 Neutrophils/100 WBC (Bld) 79.5 % High 47-70 [facility] No Panel InformationOrdered By: Sachin Murillo on 04-18-2025 356 ug/dL 228-428 [facility] No Panel InformationOrdered By: Jeffy Willoughby on 04-18-2025 16 U/L <32 [facility] Nucleated red blood cell per centageOrdered By: Jeffy Willoughby on 04-18-2025 Nucleated RBC/100 WBC (Bld) [Ratio] 0.2 % 0-5 [facility] Platelet countOrdered By: Barrett Willoughby on 04-18-2025 Platelets (Bld) [#/Vol] 195 10*3/uL 150-450 [facility] Potassium measurement (mass/ volume)Ordered By: Jeffy Willoughby on 04-18-2025 Potassium (Unsp spec) [Mass/Vol] 3.8 mmol/L 3.3-5.1 [facility] RBC Auto (Bld) [#/Vol]Ordere d By: Jeffy Willoughby on 04-18-2025 RBC (Bld) [#/Vol] 2.97 10*6/uL Low 4.2-5.4 [facility] Serum creatinine measurement (mass/volume)Ordered By: Jeffy Willoughby on 04-18-2025 Creatinine [Mass/Vol] 1.28 mg/dL High 0.70-1.20 [facility] Serum globulin measurementOr dered By: Jeffy Willoughby on 04-18-2025 Globulin (S) [Mass/Vol] 2.4 g/dL 2.2-4.2 [facility] Serum glucose measurement (m ass/volume)Ordered By: Jeffy Willoughby on 04-18-2025 Glucose [Mass/Vol] 135 mg/dL High 70-99 [facility] Serum or plasma alanine pizarro otransferase (ALT) measurementOrdered By: Jeffy Willoughby on 04-18-2025 ALT [Catalytic activity/Vol] 8 U/L <35 [facility] Serum or plasma albumin stefania urement (mass/volume)Ordered By: Jeffy Willoughby on 04-18-2025 Albumin [Mass/Vol] 4.1 g/dL 3.4-4.8 [facility] Serum or plasma albumin/glob ulin mass ratioOrdered By: Jeffyaura Willoughby on 04-18-2025 Albumin/Globulin [Mass ratio] 1.7 {ratio} 0.9-2.4 [facility] Serum or plasma alkaline anthony sphatase measurementOrdered By: Jeffyaura Willoughby on 04-18-2025 ALP [Catalytic activity/Vol] 88 U/L 35-104 [facility] Serum or plasma calcium stefania urement (mass/volume)Ordered By: Jeffy Willoughby on 04-18-2025 Calcium [Mass/Vol] 9.0 mg/dL 7.6-11.0 [facility] Serum or plasma ferritin felicia surement (mass/volume)Ordered By: Sachin Murillo on 04-18-2025 Ferritin [Mass/Vol] 12 ng/mL Low 22-378 [facility] Serum or plasma iron saturat ion measurement (mass fraction)Ordered By: Sachin Murillo on 04-18-2025 Iron saturation [Mass fraction] 4.0 % Low 13-59 [facility] Serum or plasma urea nitroge n measurement (mass/volume)Ordered By: Jeffy Willoughby on 04-18-2025 Urea nitrogen [Mass/Vol] 24 mg/dL High 4-19 [facility] Sodium levelOrdered By: Jeffy Willoughby on 04-18-2025 Sodium [Moles/Vol] 133 mmol/L 133-145 [facility] Total proteinOrdered By: Jeffy Willoughby on 04-18-2025 Protein [Mass/Vol] 6.4 g/dL 5.9-8.4 [facility] Troponin T.cardiac [Mass/vol ume] in Serum or Plasma by High sensitivity methodOrdered By: Jeffy Willoughby on 04-18-2025 Troponin T.cardiac High sensitivity method [Mass/Vol] 24 ng/L High <14 [facility] Troponin T.cardiac High sensitivity method [Mass/Vol] 24 ng/L High <14 [facility] Troponin T.cardiac High sensitivity method [Mass/Vol] 30 ng/L High <14 [facility] Type AND Screenon 04-18-2025 ABO and Rh group Nom (Bld) Blood group O Rh(D) positive Normal [facility] Comment on above: Order Comment: MAGGI Suárez PREVIOUS SPECIMEN REJECTED DUE TOWRONG DATE OF ON SPECIMEN. 04/18/25 1903A Performed By: #### B TS ####[facility] [address] [place], [address] A1 CELL Not performed Normal [facility] Comment on above: Order Comment: A Result Comment: This specimen has been REJECTED due to Laboratory criteria:MisLabelled-INCORRECT DATE OF OF PATIENT ON FENWALBAND SPECIMEN.ED has been notified of need of recollection.04/18/251900 Performed By: #### L 100.0100, L501.2450, L500.4050, L503.6005, BTS ####[facility] [address] [place], [address] Ab SCREEN GEL Not performed Normal [facility] Comment on above: Order Comment: A Result Comment: This specimen has been REJECTED due to Laboratory criteria:MisLabelled-INCORRECT DATE OF OF PATIENT ON FENWALBAND SPECIMEN.ED has been notified of need of recollection.04/18/251900 Performed By: #### L 100.0100, L501.2450, L500.4050, L503.6005, BTS ####[facility] [address] [place], [address] ABO and Rh group Nom (Bld) Test Not Performed Normal [facility] Comment on above: Order Comment: A Result Comment: This specimen has been REJECTED due to Laboratory criteria:MisLabelled-INCORRECT DATE OF OF PATIENT ON FENWALBAND SPECIMEN.ED has been notified of need of recollection.04/18/251900 Performed By: #### L 100.0100, L501.2450, L500.4050, L503.6005, BTS ####[facility] [address] [place], [address] ANTI A Not performed Normal [facility] Comment on above: Order Comment: A Result Comment: This specimen has been REJECTED due to Laboratory criteria:MisLabelled-INCORRECT DATE OF OF PATIENT ON FENWALBAND SPECIMEN.ED has been notified of need of recollection.04/18/251900 Performed By: #### L 100.0100, L501.2450, L500.4050, L503.6005, BTS ####[facility] [address] [place], [address] ANTI B Not performed Normal [facility] Comment on above: Order Comment: A Result Comment: This specimen has been REJECTED due to Laboratory criteria:MisLabelled-INCORRECT DATE OF OF PATIENT ON FENWALBAND SPECIMEN.ED has been notified of need of recollection.04/18/251900 Performed By: #### L 100.0100, L501.2450, L500.4050, L503.6005, BTS ####[facility] [address] [place], [place], [address] ANTI D Not performed [facility] Comment on above: Order Comment: A Result Comment: This specimen has been REJECTED due to Laboratory criteria:MisLabelled-INCORRECT DATE OF OF PATIENT ON FENWALBAND SPECIMEN.ED has been notified of need of recollection.04/18/251900 Performed By: #### L 100.0100, L501.2450, L500.4050, L503.6005, BTS ####[facility] [address] [place], [place], [id number] B CELLS Not performed [facility] Comment on above: Order Comment: A Result Comment: This specimen has been REJECTED due to Laboratory criteria:MisLabelled-INCORRECT DATE OF OF PATIENT ON FENWALBAND SPECIMEN.ED has been notified of need of recollection.04/18/251900 Performed By: #### L 100.0100, L501.2450, L500.4050, L503.6005, BTS ####[facility] [address] [place], [place], [address] White blood cell (WBC) count Ordered By: Jeffy Willoughby on 04-18-2025 WBC (Bld) [#/Vol] 8.7 10*3/uL 4.4-11.0 [facility] Acute Abdomen Inc Cheston Acute Abdomen Inc Chest Normal [facility] Emergency Department Summary on 04-17-2025 Emergency Department Summary Normal [facility] Brain/Head without Contrasto n 04-11-2025 Brain/Head without Contrast Normal [facility] Emergency Department Summary on 04-11-2025 Emergency Department Summary Normal [facility] Sinus/Facial Boneon 04-11-20 25 Sinus/Facial Bone Normal [facility] Spine Cervical without Contr ason 04-11-2025 Spine Cervical without Contras Normal [facility] 37on 04-08-2025 37 Please call [place] [phone] to schedule the MRI brain before 05/03/25 - this is when the authorization for the MRI expires Normal [facility] Office Visiton 04-08-2025 Follow-up visit [id number] Estephania Yo 1955 F Date Provider Department Center 04/08/2025 [id number] LYNN [facility] None Family History Family Status - Relation Status Age at Mother Notes: brain tumor Father Notes: Hard[place] of arteries Level of Service:40317 ME OFFICE/OUTPATIENT ESTABLISHED LOW MDM 20 MIN Reason for Visit and Comments: Follow-up [897723] Multiple Sclerosis [162] - Normal [facility] Progress Noteon 04-08-2025 Progress Note Visit type: Establijanett friedman Patient Reason for Visit: Follow-up and Multiple Sclerosis (/) Assessment and Plan 1. Multiple sclerosis (HCC) 2. Dysphasia Subjective HPI: Patient phoned in 3 days ago stating MS flare - affecting speech, swallowing, and VOSS. Went to [facility] about 1 week ago; according to note in care everywhere she presented with generalized weakness and N/V; she was given 60mg Solum-medrol IV. Electrolytes NL She wasn't able to give a urine sample She wanted to be discharged from ED without further observation Prior to going to the ED, she saw PCP - she states he also gave her steroid injection and prednisone tabs (according to dispense report she was given methylprednisolone 4mg 03/13/25) Today, patient states she is still having symptoms of trouble swallowing (difficulty taking liquids and drooling) and difficulty walking since February. States when weather warms up, she has MS flare - N/V and loss of balance are her typical MS symptoms Received CT scan at [facility] that she states was normal REVIEW- MS- not on DMT Copaxone caused shortness of breath Frequent URI (avoid ocrevus, tysabri, kesimpta) Fatigue with aubagio and tecfidera Interferons make her sick Currently on baclofen 20mg TID Gabapentin 800mg TID Follows with pain management and hospice Follows with Dr. Barnett (vascular surgeon) for vascular issues Carotid study May 2021-Right ICA >70%, Left 50-69% REVIEW OF SYSTEMS: Review of Systems HENT: Positive for trouble swallowing. Gastrointestinal: Positive for nausea. Neurological: Positive for weakness. Allergies[1] Current Medications[2] Medical History[3] Social History Tobacco Use Smoking status: Every Day Current packs/day: 0.25 Types: Cigarettes Smokeless tobacco: Never Substance Use Topics Alcohol use: Not Currently Surgical History[4] Family History[5] Objective Vitals: BP (!) 151/88 (BP Location: Left arm, Patient Position: Sitting, BP Cuff Size: Adult) Pulse 66 Ht 5' 6 (1.676 m) Wt 108 lb 9.6 oz (49.3 kg) BMI 17.53 kg/m? General Appearance: Patient is in no apparent [...] X, XI, XII examined and were intact. Motor: Strength: Strength 5 out of 5 with normal tone, except 4/5 bilateral hip and knee; 4+/5 bilateral ankles Alternating Movements: Normal Cogwheel Rigidity: None Tone: Tone is normal Tremor / Involuntary Movements: None Deep Tendon Reflexes: 1 out of 4 symmetrical in all four limbs. Sensory: Normal sensation upper and lower extremities Coordination: Normal coordination upper and lower extremities Gait and Station: Station is weak; Gait - uses rolator but ambulating well Data Reviewed and Summarized DIAGNOSTIC TESTING CBC: [...] 04/04/2023 [APTT} FLP: No results found for: CHLPL, TRIG, HDL, LDLCALC, LDLDIRECT TSH: No results found for: TSH VITAMIN B12: No results found for: [id number] No results found for: PHENYTOIN, PHENOBARB, VALPROATE, CBMZ No components found for: TOPIRA @RESULTINGLABINFO@ No results found for: LEVETIRACETA, FERRITIN, CRP, DENNIS, ANCA No results found for: CHRISTIANO, IMMUNOGLOBUL, OLIGOBANDS No results found for: USB72KR, HEPCAB No results found for: CRP, ANATITER, ANCA FERRITIN: No results found for: FERRITIN ---- ECG 12 lead SINUS BRADYCARDIA PROBABLE LEFT ATRIAL ABNORMALITY No previous ECG available for comparison Electronically Signed On 04-05-2023 7:42:10 EDT by Juvenal Benton @[facility]OV@ IMPRESSION and PLAN: Problem List Items Ad (more content not included)... Normal [facility] 36on 04-06-2025 36 Patient has been scheduled Normal [facility] 36 I have a 200pm openi ng today or see what I or Dr. Main has open this week. Thank you. Normal [facility] 36on 04-05-2025 36 S: patient calling C AC d/t MS flare up B: Symptoms started 3 weeks ago A: states MS is flaring up. Issues with speech, trouble swallowing, headache. Seen in er a couple days ago at [facility]. States is having trouble walking is able to walk with her walker. States was given a shot of steroids in the er. States it is not helping. States same symptoms as normal flare up when the weather changes and same as when seen in the er. Patient is able to swallow her own saliva. R: patient would like to be seen in office. May go to [facility] today. Patient advised to call back with worsening of symptoms, concern or questions. Patient verbalized understanding. Reason for Disposition [1] Loss of speech or garbled speech AND [2] is a chronic symptom (recurrent or ongoing AND present > 4 weeks) Protocols used: Neurologic Ztntvin-MEFNM-EY Normal [facility] 12 Lead EKGon 04-02-2025 12 Lead EKG Normal [facility] Abdomen/Pelvis W IV Cont ONL Yon 04-02-2025 Abdomen/Pelvis W IV Cont ONLY Normal [facility] Absolute lymphocyte countOrd ered By: Nuno Grider on 04-02-2025 Lymphocytes Auto (Unsp spec) [#/Vol] 0.62 10*3/uL Low 0.83-4.51 [facility] Absolute neutrophil countOrd ered By: Nuno Grider on 04-02-2025 Neutrophils (Bld) [#/Vol] 4.7 10*3/uL 2.0-7.7 [facility] Anion gap in Serum or Plasma Ordered By: Nuno Grider on 04-02-2025 Anion gap [Moles/Vol] 13 mmol/L - [facility] Automated lymphocyte count a s percentage of total leukocytesOrdered By: Nuno Grider on 04-02-2025 Lymphocytes/100 WBC Auto (Unsp spec) 10.5 % Low 19-41 [facility] BUN/creatinine ratioOrdered By: Nuno Grider on 04-02-2025 Urea nitrogen/Creatinine [Mass ratio] 22.3 mg/mg High 10-20 [facility] Basophil percentageOrdered B y: Nuno Grider on 04-02-2025 Basophils/100 WBC (Bld) 0.5 % 0-1 [facility] Bilirubin, totalOrdered By: Nuno Grider on 04-02-2025 Bilirubin [Mass/Vol] 0.22 mg/dL 0.00-1.30 [facility] CBC W/Diff, Automatedon 03-19-2024 Absolute Lymph 0.62 X10 3/uL Low 0.83-4.51 [facility] Comment on above: Performed By: #### L 500.4050, L501.2450, L100.0100 ####[facility] [address] [place], [address] Absolute Neut 4.7 X10 3/uL Normal 2.0-7.7 [facility] Comment on above: Performed By: #### L 500.4050, L501.2450, L100.0100 ####[facility] [address] [place], [address] Basophils/100 WBC (Bld) 0.5 % Normal 0-1 [facility] Comment on above: Performed By: #### L 500.4050, L501.2450, L100.0100 ####[facility] [address] [place], [address] Eosinophils/100 WBC (Bld) 1.5 % Normal 0-5 [facility] Comment on above: Performed By: #### L 500.4050, L501.2450, L100.0100 ####[facility] [address] [place], [address] Erythrocyte distribution width (RBC) [Ratio] 16.5 % High 11.6-14.6 [facility] Comment on above: Performed By: #### L 500.4050, L501.2450, L100.0100 ####[facility] [address] [place], [address] Hematocrit (Bld) [Volume fraction] 28.2 % Low 37-47 [facility] Comment on above: Performed By: #### L 500.4050, L501.2450, L100.0100 ####[facility] [address] [place], [address] Hemoglobin (Bld) [Mass/Vol] 8.8 g/dL Low 12.0-15.0 [facility] Comment on above: Performed By: #### L 500.4050, L501.2450, L100.0100 ####[facility] [address] [place], [address] IG% 0.500 Normal 0.0-0.9 [facility] Comment on above: Result Comment: IG% - Immature Granulocytes (promyelocytes, myelocytes andmetamyelocytes) > 1% indicates that a LEFT SHIFT is Present. Performed By: #### L 500.4050, L501.2450, L100.0100 ####[facility] [address] [place], [address] Lymphocytes/100 WBC (Bld) 10.5 % Low 19-41 [facility] Comment on above: Performed By: #### L 500.4050, L501.2450, L100.0100 ####[facility] [address] [place], [address] MCH (RBC) [Entitic mass] 25.8 pg Low 27.0-32.0 [facility] Comment on above: Performed By: #### L 500.4050, L501.2450, L100.0100 ####[facility] [address] [place], [address] MCHC (RBC) [Mass/Vol] 31.2 g/dL Low 32-36 [facility] Comment on above: Performed By: #### L 500.4050, L501.2450, L100.0100 ####[facility] [address] [place], [address] MCV (RBC) [Entitic vol] 82.7 fL Normal 81-99 [facility] Comment on above: Performed By: #### L 500.4050, L501.2450, L100.0100 ####[facility] [address] [place], [address] Monocytes/100 WBC (Bld) 6.6 % Normal 0-10 [facility] Comment on above: Performed By: #### L 500.4050, L501.2450, L100.0100 ####[facility] [address] [place], [address] Neutrophils/100 WBC (Bld) 80.4 % High 47-70 [facility] Comment on above: Performed By: #### L 500.4050, L501.2450, L100.0100 ####[facility] [address] [place], [address] Nucleated RBC (Bld) [#/Vol] 0 10*3/uL Normal 0-5 [facility] Comment on above: Performed By: #### L 500.4050, L501.2450, L100.0100 ####[facility] [address] [place], [address] Platelet mean volume (Bld) [Entitic vol] 9.7 fL Normal 6.2-12.0 [facility] Comment on above: Performed By: #### L 500.4050, L501.2450, L100.0100 ####[facility] [address] [place], [address] Platelets (Bld) [#/Vol] 154 10*3/uL Normal 150-450 [facility] Comment on above: Performed By: #### L 500.4050, L501.2450, L100.0100 ####[facility] [address] [place], [address] RBC (Bld) [#/Vol] 3.41 10*6/uL Low 4.2-5.4 [facility] Comment on above: Performed By: #### L 500.4050, L501.2450, L100.0100 ####[facility] [address] [place], [address] RDW SD 49.7 fl High 35.1-43.9 [facility] Comment on above: Performed By: #### L 500.4050, L501.2450, L100.0100 ####[facility] [address] [place], [address] WBC (Bld) [#/Vol] 5.9 10*3/uL Normal 4.4-11.0 [facility] Comment on above: Performed By: #### L 500.4050, L501.2450, L100.0100 ####[facility] [address] [place], [address] Carbon dioxide, total [Moles /volume] in Central venous bloodOrdered By: Nuno Grider on 04-02-2025 CO2 [Moles/Vol] 23.7 mmol/L 21.0-32.0 [facility] Chloride assayOrdered By: Jorge Grider on 04-02-2025 Chloride [Moles/Vol] 102 mmol/L 98-108 [facility] Comprehensive Metabolic Prof ilon 04-02-2025 Albumin [Mass/Vol] 4.2 g/dL Normal 3.4-4.8 [facility] Comment on above: Performed By: #### L 500.4050, L501.2450, L100.0100 ####[facility] [address] [place], [address] Albumin/Globulin [Mass ratio] 1.7 {ratio} Normal 0.9-2.4 [facility] Comment on above: Performed By: #### L 500.4050, L501.2450, L100.0100 ####[facility] [address] [place], [address] ALK PHOS 87 U/L Normal 35-104 [facility] Comment on above: Performed By: #### L 500.4050, L501.2450, L100.0100 ####[facility] [address] [place], [address] ALT [Catalytic activity/Vol] 14 U/L Normal <=34 [facility] Comment on above: Performed By: #### L 500.4050, L501.2450, L100.0100 ####[facility] [address] [place], [address] AST [Catalytic activity/Vol] 16 U/L Normal <=31 [facility] Comment on above: Performed By: #### L 500.4050, L501.2450, L100.0100 ####[facility] [address] [place], [address] Bilirubin [Mass/Vol] 0.22 mg/dL Normal 0.00-1.30 [facility] Comment on above: Performed By: #### L 500.4050, L501.2450, L100.0100 ####[facility] [address] [place], [address] BUN/CRE 22.3 RATIO High 10-20 [facility] Comment on above: Performed By: #### L 500.4050, L501.2450, L100.0100 ####[facility] [address] [place], [address] Calcium [Mass/Vol] 9.6 mg/dL Normal 7.6-11.0 [facility] Comment on above: Performed By: #### L 500.4050, L501.2450, L100.0100 ####[facility] [address] [place], [address] Chloride [Moles/Vol] 102 mmol/L Normal 98-108 [facility] Comment on above: Performed By: #### L 500.4050, L501.2450, L100.0100 ####[facility] [address] [place], [address] CO2 [Moles/Vol] 23.7 mmol/L Normal 21.0-32.0 [facility] Comment on above: Performed By: #### L 500.4050, L501.2450, L100.0100 ####[facility] [address] [place], [address] Creatinine [Mass/Vol] 1.23 mg/dL High 0.70-1.20 [facility] Comment on above: Performed By: #### L 500.4050, L501.2450, L100.0100 ####[facility] [address] [place], [address] ECRCL 34.53 ml/min Low 50-250 [facility] Comment on above: Performed By: #### L 500.4050, L501.2450, L100.0100 ####[facility] [address] [place], [address] GAP 13 Normal 5-15 [facility] Comment on above: Performed By: #### L 500.4050, L501.2450, L100.0100 ####[facility] [address] [place], [address] GFR/1.73 sq M.predicted among non-blacks MDRD (S/P/Bld) [Vol rate/Area] 47 mL/min/{1.73_m2} Low >60 [facility] Comment on above: Result Comment: mL/m in/1.73m2 CKD-EPI Creatinine Equation (2020) Performed By: #### L 500.4050, L501.2450, L100.0100 ####[facility] [address] [place], [address] Globulin (S) [Mass/Vol] 2.5 g/dL Normal 2.2-4.2 [facility] Comment on above: Performed By: #### L 500.4050, L501.2450, L100.0100 ####[facility] [address] [place], [address] Glucose [Mass/Vol] 129 mg/dL High 70-99 [facility] Comment on above: Performed By: #### L 500.4050, L501.2450, L100.0100 ####[facility] [address] [place], [address] Potassium [Moles/Vol] 4.0 mmol/L Normal 3.3-5.1 [facility] Comment on above: Performed By: #### L 500.4050, L501.2450, L100.0100 ####[facility] [address] [place], [address] Sodium [Moles/Vol] 138 mmol/L Normal 133-145 [facility] Comment on above: Performed By: #### L 500.4050, L501.2450, L100.0100 ####[facility] [address] [place], [address] T PROT 6.7 g/dL Normal 5.9-8.4 [facility] Comment on above: Performed By: #### L 500.4050, L501.2450, L100.0100 ####[facility] [address] [place], [address] Urea nitrogen [Mass/Vol] 27 mg/dL High 4-19 [facility] Comment on above: Performed By: #### L 500.4050, L501.2450, L100.0100 ####[facility] [address] [place], [address] Emergency Department Summary on 04-02-2025 Emergency Department Summary Normal [facility] Eosinophil percentageOrdered By: Nuno Grider on 04-02-2025 Eosinophils/100 WBC (Bld) 1.5 % 0-5 [facility] Erythrocyte distribution wid th ratioOrdered By: Nuno Grider on 04-02-2025 Erythrocyte distribution width (RBC) [Ratio] 16.5 % High 11.6-14.6 [facility] Erythrocyte distribution wid th standard deviationOrdered By: Nuno Grider on 04-02-2025 Erythrocyte distribution width (RBC) [Ratio] 49.7 fl High 35.1-43.9 [facility] Glomerular filtration rate ( GFR) estimation/1.73 sq m using serum, plasma, or whole bOrdered By: Nuno Grider on 04-02-2025 GFR/1.73 sq M.predicted among non-blacks MDRD (S/P/Bld) [Vol rate/Area] 47 mL/min/{1.73_m2} Low >60 [facility] Comment on above: mL/min/1.73m2 CKD-EP I Creatinine Equation (2020) Hematocrit Auto (Bld) [Volum e fraction]Ordered By: Nuno Grider on 04-02-2025 Hematocrit (Bld) [Volume fraction] 28.2 % Low 37-47 [facility] Hemoglobin measurementOrdere d By: Nuno Grider on 04-02-2025 Hemoglobin (Bld) [Mass/Vol] 8.8 g/dL Low 12.0-15.0 [facility] Immature granulocytes/100 WB C Auto (Bld)Ordered By: Nuno Grider on 04-02-2025 Immature granulocytes/100 WBC (Bld) 0.500 % 0.0-0.9 [facility] Comment on above: IG% - Immature Granu locytes (promyelocytes, myelocytes and metamyelocytes) > 1% indicates that a LEFT SHIFT is Present. Laboratory - Chemistry and C hemistry - challengeOrdered By: Nuno Grider on 05-15-2025 AST [Catalytic activity/Vol] 16 U/L <32 [facility] Lipaseon 04-02-2025 Lipase [Catalytic activity/Vol] 23 U/L Normal 13-75 [facility] Comment on above: Result Comment: Stacy pringle note:LIPASE revised reference range effective 23.New Lipase methodology. Expected to produce lower valuesthan the previous assay method.NEW Reference Range: 13 - 75 U/L Performed By: #### L 500.4050, L501.2450, L100.0100 ####[facility] [address] [place], [address] Lipase measurementOrdered By : Nuno Grider on 04-02-2025 Lipase [Catalytic activity/Vol] 23 U/L 13-75 [facility] Comment on above: Please note:LIPASE r evised reference range effective 23. New Lipase methodology. Expected to produce lower values than the previous assay method. NEW Reference Range: 13 - 75 U/L MCV (mean corpuscular volume ) determinationOrdered By: Nuno Grider on 04-02-2025 MCV (RBC) [Entitic vol] 82.7 fL 81-99 [facility] Mean corpuscular hemoglobin (MCH) determinationOrdered By: Nuno Grider on 04-02-2025 MCH (RBC) [Entitic mass] 25.8 pg Low 27.0-32.0 [facility] Mean corpuscular hemoglobin concentration (MCHC) determinationOrdered By: Nuno Grider on 04-02-2025 MCHC (RBC) [Mass/Vol] 31.2 g/dL Low 32-36 [facility] Mean platelet volume determi nationOrdered By: Nuno Grider on 04-02-2025 Platelet mean volume (Bld) [Entitic vol] 9.7 fL 6.2-12.0 [facility] Monocyte percentageOrdered B y: Nuno Grider on 04-02-2025 Monocytes/100 WBC (Bld) 6.6 % 0-10 [facility] Neutrophil percentageOrdered By: Nuno Grider on 04-02-2025 Neutrophils/100 WBC (Bld) 80.4 % High 47-70 [facility] No Panel InformationOrdered By: Nuno Grider on 04-02-2025 16 U/L <32 [facility] Nucleated red blood cell per centageOrdered By: Nuno Grider on 04-02-2025 Nucleated RBC/100 WBC (Bld) [Ratio] 0 % 0-5 [facility] Platelet countOrdered By: Jorge Grider on 04-02-2025 Platelets (Bld) [#/Vol] 154 10*3/uL 150-450 [facility] Potassium measurement (mass/ volume)Ordered By: Nuno Grider on 04-02-2025 Potassium (Unsp spec) [Mass/Vol] 4.0 mmol/L 3.3-5.1 [facility] RBC Auto (Bld) [#/Vol]Ordere d By: Nuno Grider on 04-02-2025 RBC (Bld) [#/Vol] 3.41 10*6/uL Low 4.2-5.4 [facility] Serum creatinine measurement (mass/volume)Ordered By: Nuno Grider on 04-02-2025 Creatinine [Mass/Vol] 1.23 mg/dL High 0.70-1.20 [facility] Serum globulin measurementOr dered By: Nuno Grider on 04-02-2025 Globulin (S) [Mass/Vol] 2.5 g/dL 2.2-4.2 [facility] Serum glucose measurement (m ass/volume)Ordered By: Nuno Grider on 04-02-2025 Glucose [Mass/Vol] 129 mg/dL High 70-99 [facility] Serum or plasma alanine pizarro otransferase (ALT) measurementOrdered By: Nuno Grider on 04-02-2025 ALT [Catalytic activity/Vol] 14 U/L <35 [facility] Serum or plasma albumin stefania urement (mass/volume)Ordered By: Nuno Grider on 04-02-2025 Albumin [Mass/Vol] 4.2 g/dL 3.4-4.8 [facility] Serum or plasma albumin/glob ulin mass ratioOrdered By: Nuno Grider on 04-02-2025 Albumin/Globulin [Mass ratio] 1.7 {ratio} 0.9-2.4 [facility] Serum or plasma alkaline anthony sphatase measurementOrdered By: Nuno Grider on 04-02-2025 ALP [Catalytic activity/Vol] 87 U/L 35-104 [facility] Serum or plasma calcium stefania urement (mass/volume)Ordered By: Nuno Grider on 04-02-2025 Calcium [Mass/Vol] 9.6 mg/dL 7.6-11.0 [facility] Serum or plasma urea nitroge n measurement (mass/volume)Ordered By: Nuno Grider on 04-02-2025 Urea nitrogen [Mass/Vol] 27 mg/dL High 4-19 [facility] Sodium levelOrdered By: Nuno Grider on 04-02-2025 Sodium [Moles/Vol] 138 mmol/L 133-145 [facility] Total proteinOrdered By: Clari Grider on 04-02-2025 Protein [Mass/Vol] 6.7 g/dL 5.9-8.4 [facility] Urinalysis, Completeon 04-02 BACTERIA Normal None Seen [facility] Comment on above: Order Comment: HTEODORE CTOR TO SPECIFY Result Comment: @PT DEPARTED ER, OK TO CANCEL BY ROSENDO Performed By: #### L 400.0001 ####[facility] [address] [place], [place], [id number] BILIRUBIN URINE Normal Negative [facility] Comment on above: Order Comment: THEODORE CTOR TO SPECIFY Result Comment: @PT DEPARTED ER, OK TO CANCEL BY CHRISTIANAOSTETTLER Performed By: #### L 400.0001 ####[facility] [address] [place], [address] Clarity (U) Normal Clear [facility] Comment on above: Order Comment: THEODORE CTOR TO SPECIFY Result Comment: @PT DEPARTED ER, OK TO CANCEL BY CHRISTIANAOSTETTLER Performed By: #### L 400.0001 ####[facility] [address] [place], [address] Color (U) Normal Yellow [facility] Comment on above: Order Comment: THEODORE CTOR TO SPECIFY Result Comment: @PT DEPARTED ER, OK TO CANCEL BY MHOSTETTLER Performed By: #### L 400.0001 ####[facility] [address] [place], [address] EPI,SQUAMOUS Normal 5-10 [facility] Comment on above: Order Comment: COLLE CTOR TO SPECIFY Result Comment: @PT DEPARTED ER, OK TO CANCEL BY MHOSTETTLER Performed By: #### L 400.0001 ####[facility] [address] [place], [address] GLUCOSE, UR Normal Normal [facility] Comment on above: Order Comment: COLLE CTOR TO SPECIFY Result Comment: @PT DEPARTED ER, OK TO CANCEL BY MHOSTETTLER Performed By: #### L 400.0001 ####[facility] [address] [place], [address] KETONE UR Normal Negative [facility] Comment on above: Order Comment: COLLE CTOR TO SPECIFY Result Comment: @PT DEPARTED ER, OK TO CANCEL BY MHOSTETTLER Performed By: #### L 400.0001 ####[facility] [address] [place], [address] LEUK ESTERASE Normal Negative [facility] Comment on above: Order Comment: COLLE CTOR TO SPECIFY Result Comment: @PT DEPARTED ER, OK TO CANCEL BY MHOSTETTLER Performed By: #### L 400.0001 ####[facility] [address] [place], [address] Mucus Ql (Urine sed) Normal [facility] Comment on above: Order Comment: COLLE CTOR TO SPECIFY Result Comment: @PT DEPARTED ER, OK TO CANCEL BY MHOSTETTLER Performed By: #### L 400.0001 ####[facility] [address] [place], [address] Nitrite Ql (U) Normal Negative [facility] Comment on above: Order Comment: COLLE CTOR TO SPECIFY Result Comment: @PT DEPARTED ER, OK TO CANCEL BY MHOSTETTLER Performed By: #### L 400.0001 ####[facility] [address] [place], [address] OCCULT BLOOD-UR Normal Negative [facility] Comment on above: Order Comment: COLLE CTOR TO SPECIFY Result Comment: @PT DEPARTED ER, OK TO CANCEL BY MHOSTETTLER Performed By: #### L 400.0001 ####[facility] [address] [place], [address] pH UR Normal 5.0 - 8.0 [facility] Comment on above: Order Comment: COLLE CTOR TO SPECIFY Result Comment: @PT DEPARTED ER, OK TO CANCEL BY MHOSTETTLER Performed By: #### L 400.0001 ####[facility] [address] [place], [address] PROT DIPSTX Normal Negative [facility] Comment on above: Order Comment: COLLE CTOR TO SPECIFY Result Comment: @PT DEPARTED ER, OK TO CANCEL BY MHOSTETTLER Performed By: #### L 400.0001 ####[facility] [address] [place], [address] RBC Normal 0-5 [facility] Comment on above: Order Comment: THEODORE CTOR TO SPECIFY Result Comment: @PT DEPARTED ER, OK TO CANCEL BY MHOSTETTLER Performed By: #### L 400.0001 ####[facility] [address] [place], [address] SP.GR. DIPSTX Normal 1.002-1.03 0 [facility] Comment on above: Order Comment: COLLE CTOR TO SPECIFY Result Comment: @PT DEPARTED ER, OK TO CANCEL BY MHOSTETTLER Performed By: #### L 400.0001 ####[facility] [address] [place], [address] UR Preservative Normal [facility] Comment on above: Order Comment: COLLE CTOR TO SPECIFY Result Comment: @PT DEPARTED ER, OK TO CANCEL BY MHOSTETTLER Performed By: #### L 400.0001 ####[facility] [address] [place], [address] UROBILI Normal Normal [facility] Comment on above: Order Comment: COLLE CTOR TO SPECIFY Result Comment: @PT DEPARTED ER, OK TO CANCEL BY MHOSTETTLER Performed By: #### L 400.0001 ####[facility] [address] [place], [address] WBC Normal 0-5 [facility] Comment on above: Order Comment: COLLE CTOR TO SPECIFY Result Comment: @PT DEPARTED ER, OK TO CANCEL BY MHOSTETTLER Performed By: #### L 400.0001 ####[facility] [address] [place], [address] White blood cell (WBC) count Ordered By: Nuno Grider on 04-02-2025 WBC (Bld) [#/Vol] 5.9 10*3/uL 4.4-11.0 [facility] Echo Transesophageal (GREGORIO)on 03-19-2025 Echo Transesophageal (GREGORIO) Normal [facility] 36on 03-09-2025 36 Order re faxed to [phone] [facility]. [facility] 36 Name of caller: Brice aragon Contact phone number: [phone] Relationship to Patient: [facility] Provider: AURORA Lynn Practice: [facility] [place] Chief Complaint/Reason for Call: Kody called in requesting patient's MRI order be faxed over to them at fax # [phone]. Please be advised Best time of day caller can be reached: Any Patient advised that office/PCP has 24-48 business hours to return their call: N/A [facility] 36on 03-04-2025 36 Call to patient. Renuka domingo notified. Patient Stated will scheduled testing. [facility] 36 We have been unable to reach your patient to schedule their testing. Test Name: EEG 1st Attempt: 03/04 pt stated this will be done at [facility] Office Visiton 03-04-2025 Follow-up visit [id number] ChristinEstephania snow edgar Ohara 1955 F Date Provider Department Center 03/04/2025 [id number], LIZZ [facility] KAILA None Family History Family Status - Relation Status Age at Mother Notes: brain tumor Father Notes: [place] of arteries Level of Service:27216 ME OFFICE/OUTPATIENT ESTABLISHED LOW MDM 20 MIN Reason for Visit and Comments: Follow-up [351129] Multiple Sclerosis [162] [facility] Progress Noteon 03-04-2025 Progress Note Visit type: Establis hed Patient Reason for Visit: Follow-up and Multiple Sclerosis Assessment and Plan 1. Multiple sclerosis (HCC) 2. Mild cognitive impairment Subjective HPI: MS- not on DMT Copaxone caused shortness of breath Frequent URI (avoid ocrevus, tysabri, kesimpta) Fatigue with aubagio and tecfidera Interferons make her sick Currently on baclofen 20mg TID Gabapentin 800mg TID Was taken off duloxetine about 6 mos ago when hospitalized for low blood counts Still follows with pain management and hospice Follows with Dr. Barnett (vascular surgeon) for vascular issues Carotid study May 2021-Right ICA >70%, Left 50-69% Denies trouble swallowing/choking Had a fall recently; tripped; did not hit head Notes memory is getting worse; can't remember people's names; trouble getting words out; x last 6 mos Onset Gradual? Intermittent x 6 mos Age over 65? No Alzheimer's Dementia? No Short term memory loss for facts (declarative) while distant memories are spared? yes Difficulty with word finding of familiar words? yes Difficulty with drawing, buttoning shirts, constructing models, making a bed, and putting together something that is unassembled? No Changes in personality, behavior, or comportment? Yes Difficulty with executive functioning? No Making plans? No Keeping track of time and finishing tasks on time? No Meaningfully include past knowledge in discussions? No Ask for help or seek information when needed? No Telling stories with details in an organized, sequential manner? No Prior history of Parkinson's Disease (Parkinson's Disease relate Dementia)? No Associated with impairment in attention fluctuating during the day or from day to day? yes Associated with impairment in tasks requiring construction (visuospatial orientation or perception)? No Associated with impairment in recall of recent events? No Associated with apathy? yes Associated with depressive mood changes and anxiety? yes Associated with hallucinations of people, animals or objects? No Associated with excessive daytime sleepiness? No Associated with delusions? No Associated with parkinsonism bradykinesia, tremor, rigidity, or gait changes (Lewy Body Disease)? No Cognitive impairment (similar to above)? No Hallucinations? No H/o acting out dreams? No Fluctuations in attention? No Orthostasis? No Age under 65? No Frontal temporal dementia? No Behavioral variant? No Associated with hallucinations? No Associated with socially inappropriate behavior, loss of manners or decorum? No Associated with impulsivity, rashness, or careless actions? No Associated with apathy, loss of initiative? yes Associated with binge eating, binge drinking, binge smoking? No Associated with repetitive movements or repeating the same words over and over? No Semantic Variant? No Impaired object naming? No Impaired single-word comprehension? No Difficulty reading or writing? No No trouble repeating? Yes No trouble with speaking clearly or with proper grammar? Yes Nonfluent Agrammatic Variant? No Effortful, halting speech with inconsistent sound errors and distortion? No Impaired comprehension of syntactically complex sentences? No Spared single-word comprehension? No Spared object knowledge? No Corticobasal Degeneration? No Asymmetric limb rigidity, akinesia, dystonia, or myclonus? No Orobuccal or limb apraxia? No Cortical sensory deficit? No Alien limb phenomenon? No Progressive Supranuclear Palsy? No Falls or postural instability? No Urinary incontinence? No Behavioral changes? No Onset Sudden? No Associated with head trauma? No Associated with TIA or Stroke symptoms? yes Associated with infection? No Associated with auto-immune disease? MS Associated with drug or medication? No Associated with tumor or treatment of tumor? No Associated with diet change or gastric bypass? No Associated with depression, anxiety, psychosis, or other psychiatric disease? Depression Associated with seizures? No REVIEW OF SYSTEMS: Review of Systems Musculoskeletal: Positive for arthralgias. Neurological: Memory issues Allergies Allergen Reactions Antihistamines, Diphenhydramine-Type Clopidogrel Other reaction(s): Other: See Comments Heartburn Codeine nausea Fenofibrate Other reaction(s): Intolerance Fentanyl Other reaction(s): Other: See Comments Sweating/ Flushing Morphine nausea and vomiting Prednisone Destroyed bone. Salicylates Amitriptyline Rash Current Outpatient Medications: baclofen (Lioresal) 20 MG tablet, take 1 tablet by mouth every 8 hours if needed muscle spasm, Disp: 90 tablet, Rfl: 1 cholecalciferol (Vitamin D-3) 125 MCG (5000 UT) capsule, Take 125 mcg by mouth in the morning., Disp: , Rfl: clopidogrel (Plavix) 75 MG tablet, , Disp: , Rfl: gabapentin (Neurontin) 800 MG tablet, Take 1 tablet (800 mg) by mouth 3 times daily., Disp: 9 (more content not included)... [facility] 36on 03-02-2025 36 Refused as it has be en over a year since her last visit. Will refill at her upcoming appt. [facility] 36 Last ov- 12/14/23 Next ov- 03/04/25 [facility] 36on 02-25-2025 36 patient has been not ified of providers message. Appointment has been scheduled [facility] 36 Patient's last offic e visit was over a year ago; she needs a follow up before I can order more refills. Thank you. [facility] 36on 02-24-2025 36 Forwarding to provid er for review and advice. Called pharmacy spoke with geotechnical engineering technician who stated patient picked up refill on January 18. [facility] 36 Medication name: staci lofen (Lioresal) 20 MG tablet Medication dosage: 20 MG Monthly quantity needed: 90 How many day supply requestin days Medication route: oral (PO) Medication administration time(s): 1 tablet by mouth every 8 hours If taking medication PRN, reason for taking medication: if needed muscle spasm If this is a controlled substance do you receive this or any other controlled medication from any other doctor or facility: N/A Ordering provider: Janett Lynn Date of last office visit: 12/14/23 Date of next office visit: N/A Date of last refill: (see medication tab): 11/20/24 Updated/Validated preferred pharmacy: Yes Patient instructed to contact the pharmacy prior to picking up the medication: Yes [facility] Cardiology Visit Reporton Cardiology Visit Report Normal [facility] Thoracic Spine 2 Viewson Thoracic Spine 2 Views Normal [facility] Discharge Instructionon 12-21 Discharge Instruction Normal [facility] Activated partial thrombopla stin time (aPTT) in platelet poor plasma by coagulation aOrdered By: on 01-12-2025 aPTT Coag (PPP) [Time] 76.6 s High 24.1-36.2 [facility] Partial Thromboplast Timeon 01-12-2025 aPTT Coag (Bld) [Time] 76.6 s High 24.1-36.2 [facility] Comment on above: Performed By: #### L 300.4310 ####[facility] [address] [place], [place], [id number] aPTT Coag (Bld) [Time] 60.2 s High 24.1-36.2 [facility] Comment on above: Order Comment: Comme nts: time sensitive hep gtt Performed By: #### L 300.4310 ####[facility] [address] [place], [place], [id number] Absolute lymphocyte countOrd ered By: on 01-11-2025 Lymphocytes Auto (Unsp spec) [#/Vol] 1.07 10*3/uL 0.83-4.51 [facility] Absolute neutrophil countOrd ered By: on 01-11-2025 Neutrophils (Bld) [#/Vol] 3.6 10*3/uL 2.0-7.7 [facility] Albumin to globulin ratioOrd ered By: on 01-11-2025 Albumin/Globulin [Mass ratio] 0.8 {ratio} Low 0.9-2.4 [facility] Automated lymphocyte count a s percentage of total leukocytesOrdered By: on 01-11-2025 Lymphocytes/100 WBC Auto (Unsp spec) 20.5 % 19-41 [facility] Basophil percentageOrdered B y: White on 01-11-2025 Basophils/100 WBC (Bld) 0.4 % 0-1 [facility] Bilirubin, totalOrdered By: Sommer Resendiz on 01-11-2025 Bilirubin [Mass/Vol] 0.30 mg/dL 0.20-1.00 [facility] Comment on above: For patients on eltr ombopag therapy, use of Dimension [place] TBIL is not recommended. Blood urea nitrogen (BUN)/cr eatinine ratioOrdered By: Sommer Resendiz on 01-11-2025 Urea nitrogen/Creatinine [Mass ratio] 20.8 mg/mg High 10-20 [facility] CBC W/Diff, Automatedon 12-21 Absolute Lymph 1.07 X10 3/uL Normal 0.83-4.51 [facility] Comment on above: Performed By: #### L 501.4020, L500.4050, L100.0100 ####[facility] [address] [place], [address] Absolute Neut 3.6 X10 3/uL Normal 2.0-7.7 [facility] Comment on above: Performed By: #### L 501.4020, L500.4050, L100.0100 ####[facility] [address] [place], [address] Basophils/100 WBC (Bld) 0.4 % Normal 0-1 [facility] Comment on above: Performed By: #### L 501.4020, L500.4050, L100.0100 ####[facility] [address] [place], [address] Eosinophils/100 WBC (Bld) 1.0 % Normal 0-5 [facility] Comment on above: Performed By: #### L 501.4020, L500.4050, L100.0100 ####[facility] [address] [place], [address] Erythrocyte distribution width (RBC) [Ratio] 14.9 % High 11.6-14.6 [facility] Comment on above: Performed By: #### L 501.4020, L500.4050, L100.0100 ####[facility] [address] [place], [address] Hematocrit (Bld) [Volume fraction] 39.1 % Normal 37-47 [facility] Comment on above: Performed By: #### L 501.4020, L500.4050, L100.0100 ####[facility] [address] [place], [address] Hemoglobin (Bld) [Mass/Vol] 12.5 g/dL Normal 12.0-15.0 [facility] Comment on above: Performed By: #### L 501.4020, L500.4050, L100.0100 ####[facility] [address] [place], [address] IG% 0.400 Normal 0.0-0.9 [facility] Comment on above: Result Comment: IG% - Immature Granulocytes (promyelocytes, myelocytes andmetamyelocytes) > 1% indicates that a LEFT SHIFT is Present. Performed By: #### L 501.4020, L500.4050, L100.0100 ####[facility] [address] [place], [address] Lymphocytes/100 WBC (Bld) 20.5 % Normal 19-41 [facility] Comment on above: Performed By: #### L 501.4020, L500.4050, L100.0100 ####[facility] [address] [place], [address] MCH (RBC) [Entitic mass] 26.4 pg Low 27.0-32.0 [facility] Comment on above: Performed By: #### L 501.4020, L500.4050, L100.0100 ####[facility] [address] [place], [address] MCHC (RBC) [Mass/Vol] 32.0 g/dL Normal 32-36 [facility] Comment on above: Performed By: #### L 501.4020, L500.4050, L100.0100 ####[facility] [address] [place], [address] MCV (RBC) [Entitic vol] 82.7 fL Normal 81-99 [facility] Comment on above: Performed By: #### L 501.4020, L500.4050, L100.0100 ####[facility] [address] [place], [address] Monocytes/100 WBC (Bld) 9.4 % Normal 0-10 [facility] Comment on above: Performed By: #### L 501.4020, L500.4050, L100.0100 ####[facility] [address] [place], [address] Neutrophils/100 WBC (Bld) 68.3 % Normal 47-70 [facility] Comment on above: Performed By: #### L 501.4020, L500.4050, L100.0100 ####[facility] [address] [place], [address] Nucleated RBC (Bld) [#/Vol] 0 10*3/uL Normal 0-5 [facility] Comment on above: Performed By: #### L 501.4020, L500.4050, L100.0100 ####[facility] [address] [place], [address] Platelet mean volume (Bld) [Entitic vol] 10.4 fL Normal 6.2-12.0 [facility] Comment on above: Performed By: #### L 501.4020, L500.4050, L100.0100 ####[facility] [address] [place], [address] Platelets (Bld) [#/Vol] 158 10*3/uL Normal 150-450 [facility] Comment on above: Performed By: #### L 501.4020, L500.4050, L100.0100 ####[facility] [address] [place], [address] RBC (Bld) [#/Vol] 4.73 10*6/uL Normal 4.2-5.4 [facility] Comment on above: Performed By: #### L 501.4020, L500.4050, L100.0100 ####[facility] [address] [place], [address] RDW SD 45.2 fl High 35.1-43.9 [facility] Comment on above: Performed By: #### L 501.4020, L500.4050, L100.0100 ####[facility] [address] [place], [address] WBC (Bld) [#/Vol] 5.2 10*3/uL Normal 4.4-11.0 [facility] Comment on above: Performed By: #### L 501.4020, L500.4050, L100.0100 ####[facility] [address] [place], [address] Carbon dioxide measurementOr dered By: Sommer Resendiz on 01-11-2025 CO2 [Moles/Vol] 25.0 mmol/L 21.0-32.0 [facility] Chloride measurementOrdered By: Sommer Resendiz on 01-11-2025 Chloride [Moles/Vol] 101 mmol/L 98-107 [facility] Comprehensive Metabolic Prof ilon 01-11-2025 Albumin [Mass/Vol] 3.4 g/dL Normal 3.2-5.0 [facility] Comment on above: Order Comment: Comme nts: SPECIMEN #2'TROP' Serial specimen #1, #2 or #3: 2 Performed By: #### L 501.4020, L500.4050, L100.0100 ####[facility] [address] [place], [address] Albumin/Globulin [Mass ratio] 0.8 {ratio} Low 0.9-2.4 [facility] Comment on above: Order Comment: Comme nts: SPECIMEN #2'TROP' Serial specimen #1, #2 or #3: 2 Performed By: #### L 501.4020, L500.4050, L100.0100 ####[facility] [address] [place], [address] ALK P 182 U/L High 45-117 [facility] Comment on above: Order Comment: Comme nts: SPECIMEN #2'TROP' Serial specimen #1, #2 or #3: 2 Performed By: #### L 501.4020, L500.4050, L100.0100 ####[facility] [address] [place], [address] ALT [Catalytic activity/Vol] 22 U/L Normal 13-56 [facility] Comment on above: Order Comment: Comme nts: SPECIMEN #2'TROP' Serial specimen #1, #2 or #3: 2 Performed By: #### L 501.4020, L500.4050, L100.0100 ####[facility] [address] [place], [address] AST [Catalytic activity/Vol] 27 U/L Normal 15-37 [facility] Comment on above: Order Comment: Comme nts: SPECIMEN #2'TROP' Serial specimen #1, #2 or #3: 2 Performed By: #### L 501.4020, L500.4050, L100.0100 ####[facility] [address] [place], [address] Bilirubin [Mass/Vol] 0.30 mg/dL Normal 0.20-1.00 [facility] Comment on above: Order Comment: Comme nts: SPECIMEN #2'TROP' Serial specimen #1, #2 or #3: 2 Result Comment: For patients on eltrombopag therapy, use of Dimension [place] TBIL is not recommended. Performed By: #### L 501.4020, L500.4050, L100.0100 ####[facility] [address] [place], [address] BUN/CRE 20.8 RATIO High 10-20 [facility] Comment on above: Order Comment: Comme nts: SPECIMEN #2'TROP' Serial specimen #1, #2 or #3: 2 Performed By: #### L 501.4020, L500.4050, L100.0100 ####[facility] [address] [place], [address] CA,Total 9.3 mg/dL Normal 8.5-10.1 [facility] Comment on above: Order Comment: Comme nts: SPECIMEN #2'TROP' Serial specimen #1, #2 or #3: 2 Performed By: #### L 501.4020, L500.4050, L100.0100 ####[facility] [address] [place], [address] Chloride [Moles/Vol] 101 mmol/L Normal 98-107 [facility] Comment on above: Order Comment: Comme nts: SPECIMEN #2'TROP' Serial specimen #1, #2 or #3: 2 Performed By: #### L 501.4020, L500.4050, L100.0100 ####[facility] [address] [place], [address] CO2 [Moles/Vol] 25.0 mmol/L Normal 21.0-32.0 [facility] Comment on above: Order Comment: Comme nts: SPECIMEN #2'TROP' Serial specimen #1, #2 or #3: 2 Performed By: #### L 501.4020, L500.4050, L100.0100 ####[facility] [address] [place], [address] Creatinine [Mass/Vol] 1.06 mg/dL High 0.55-1.02 [facility] Comment on above: Order Comment: Comme nts: SPECIMEN #2'TROP' Serial specimen #1, #2 or #3: 2 Result Comment: The validity of the calculated GFR GFRAA in patients over70 years has not been determined. Clinical correlation isessential. Performed By: #### L 501.4020, L500.4050, L100.0100 ####[facility] [address] [place], [address] ECRCL 39.37 ml/min Normal [facility] Comment on above: Order Comment: Comme nts: SPECIMEN #2'TROP' Serial specimen #1, #2 or #3: 2 Performed By: #### L 501.4020, L500.4050, L100.0100 ####[facility] [address] [place], [address] EST GFR - AA 66 mL/min Normal >60 [facility] Comment on above: Order Comment: Comme nts: SPECIMEN #2'TROP' Serial specimen #1, #2 or #3: 2 Result Comment: Afri can Czech GFR Calc Performed By: #### L 501.4020, L500.4050, L100.0100 ####[facility] [address] [place], [address] GAP 8 Normal 5-15 [facility] Comment on above: Order Comment: Comme nts: SPECIMEN #2'TROP' Serial specimen #1, #2 or #3: 2 Performed By: #### L 501.4020, L500.4050, L100.0100 ####[facility] [address] [place], [address] GFR/1.73 sq M.predicted among non-blacks MDRD (S/P/Bld) [Vol rate/Area] 54 mL/min/{1.73_m2} Low >60 [facility] Comment on above: Order Comment: Comme nts: SPECIMEN #2'TROP' Serial specimen #1, #2 or #3: 2 Result Comment: Non- GFR Calc Performed By: #### L 501.4020, L500.4050, L100.0100 ####[facility] [address] [place], [address] Globulin (S) [Mass/Vol] 4.0 g/dL Normal 2.2-4.2 [facility] Comment on above: Order Comment: Comme nts: SPECIMEN #2'TROP' Serial specimen #1, #2 or #3: 2 Performed By: #### L 501.4020, L500.4050, L100.0100 ####[facility] [address] [place], [address] Glucose [Mass/Vol] 106 mg/dL Normal 74-106 [facility] Comment on above: Order Comment: Comme nts: SPECIMEN #2'TROP' Serial specimen #1, #2 or #3: 2 Result Comment: Fast ing Glucose result from 100 to 125 mg/dLsuggests IMPAIRED HOMEOSTASIS per A.D.A. criteria. Performed By: #### L 501.4020, L500.4050, L100.0100 ####[facility] [address] [place], [address] Potassium [Moles/Vol] 4.2 mmol/L Normal 3.5-5.1 [facility] Comment on above: Order Comment: Comme nts: SPECIMEN #2'TROP' Serial specimen #1, #2 or #3: 2 Performed By: #### L 501.4020, L500.4050, L100.0100 ####[facility] [address] [place], [address] Sodium [Moles/Vol] 135 mmol/L Low 136-145 [facility] Comment on above: Order Comment: Comme nts: SPECIMEN #2'TROP' Serial specimen #1, #2 or #3: 2 Performed By: #### L 501.4020, L500.4050, L100.0100 ####[facility] [address] [place], [address] T PROT 7.4 g/dL Normal 6.4-8.2 [facility] Comment on above: Order Comment: Comme nts: SPECIMEN #2'TROP' Serial specimen #1, #2 or #3: 2 Performed By: #### L 501.4020, L500.4050, L100.0100 ####[facility] [address] [place], [address] Urea nitrogen [Mass/Vol] 22 mg/dL High 7-18 [facility] Comment on above: Order Comment: Comme nts: SPECIMEN #2'TROP' Serial specimen #1, #2 or #3: 2 Performed By: #### L 501.4020, L500.4050, L100.0100 ####[facility] [address] [facility] [address] [place], [place], [address] Consultation - Cardiologyon 01-11-2025 Consultation - Cardiology Normal [facility] Echo Completeon 01-11-2025 Echo Complete Normal [facility] Eosinophil percentageOrdered By: Sommer Resendiz on 01-11-2025 Eosinophils/100 WBC (Bld) 1.0 % 0-5 [facility] Erythrocyte distribution wid th ratioOrdered By: Sommer Martín on 01-11-2025 Erythrocyte distribution width (RBC) [Ratio] 14.9 % High 11.6-14.6 [facility] Erythrocyte distribution wid th standard deviationOrdered By: Sommer Martín on 01-11-2025 Erythrocyte distribution width (RBC) [Ratio] 45.2 fl High 35.1-43.9 [facility] Glomerular filtration rate ( GFR) estimationOrdered By: Sommer Martín on 01-11-2025 GFR/1.73 sq M.predicted among non-blacks MDRD (S/P/Bld) [Vol rate/Area] 54 mL/min/{1.73_m2} Low >60 [facility] Comment on above: Non- GFR Calc Glucose measurementOrdered B y: Sommer Martín on 01-11-2025 Glucose [Mass/Vol] 106 mg/dL 74-106 [facility] Comment on above: Fasting Glucose resu lt from 100 to 125 mg/dL suggests IMPAIRED HOMEOSTASIS per A.D.A. criteria. Hematocrit Auto (Bld) [Volum e fraction]Ordered By: Sommer Martín on 01-11-2025 Hematocrit (Bld) [Volume fraction] 39.1 % 37-47 [facility] Hemoglobin measurementOrdere d By: Sommer Resendiz on 01-11-2025 Hemoglobin (Bld) [Mass/Vol] 12.5 g/dL 12.0-15.0 [facility] Immature granulocytes/100 WB C Auto (Bld)Ordered By: Sommer Martín on 01-11-2025 Immature granulocytes/100 WBC (Bld) 0.400 % 0.0-0.9 [facility] Comment on above: IG% - Immature Granu locytes (promyelocytes, myelocytes and metamyelocytes) > 1% indicates that a LEFT SHIFT is Present. International normalized rat io (INR) calculationOrdered By: Benjy Flores on 01-11-2025 INR Coag (Bld) [Relative time] 1.0 {INR} [facility] L501.4020on 01-11-2025 TROPONIN-I HS 1688 pg/mL Invalid Interpretation Code 3.0-54.0 [facility] Comment on above: Order Comment: Comme nts: SPECIMEN #3'TROP' Serial specimen #1, #2 or #3: 3 Result Comment: Crit ical Result(s) Called at: 10:12:22 01/11/2025 by:Joana Lainez. Results read back by same. Please Note: New Test Units and Gender Specific Reference Ranges. For more information see Policy Stat Procedure [place] High Sensitivity Troponin (TNIH) and attachments. Performed By: #### L 501.4020 ####[facility] [address] [place], [address] TROPONIN-I HS 1841 pg/mL Invalid Interpretation Code 3.0-54.0 [facility] Comment on above: Order Comment: Comme nts: SPECIMEN #2'TROP' Serial specimen #1, #2 or #3: 2 Result Comment: Crit ical Result(s) Called at: 06:12:52 01/11/2025 by:Joana Mariscal. Results read back by same. Please Note: New Test Units and Gender Specific Reference Ranges. For more information see Policy Stat Procedure [place] High Sensitivity Troponin (TNIH) and attachments. Performed By: #### L 501.4020, L500.4050, L100.0100 ####[facility] [address] [place], [address] TROPONIN-I HS 1798 pg/mL Invalid Interpretation Code 3.0-54.0 [facility] Comment on above: Order Comment: 'TROP ' Serial specimen #1, #2 or #3: 1 Result Comment: Crit ical Result(s) Called at: 04:22:19 01/11/2025 by:LORENA KENDALL TO EVERT FAY. Results read back by same. Please Note: New Test Units and Gender Specific Reference Ranges. For more information see Policy Stat Procedure [place] High Sensitivity Troponin (TNIH) and attachments. Performed By: #### L 501.4020 ####[facility] [address] [place], [place], [address] Laboratory - Chemistry and C hemistry - challengeOrdered By: Sommer Resendiz on 01-11-2025 AST [Catalytic activity/Vol] 27 U/L 15-37 [facility] M100.019on 01-11-2025 M100.019 Negative Normal [facility] Comment on above: Performed By: #### M 100.019 ####[facility] [address] [place], [address] MCV (mean corpuscular volume ) determinationOrdered By: Sommer Resendiz on 01-11-2025 MCV (RBC) [Entitic vol] 82.7 fL 81-99 [facility] Magnesiumon 01-11-2025 Magnesium [Mass/Vol] 2.0 mg/dL Normal 1.6-2.6 [facility] Comment on above: Order Comment: Comme nts: may add to ED labs Performed By: #### L 501.5200 ####[facility] [address] [place], [place], [address] Mean corpuscular hemoglobin (MCH) determinationOrdered By: Sommer Resendiz on 01-11-2025 MCH (RBC) [Entitic mass] 26.4 pg Low 27.0-32.0 [facility] Mean corpuscular hemoglobin concentration (MCHC) determinationOrdered By: Sommer Resendiz on 01-11-2025 MCHC (RBC) [Mass/Vol] 32.0 g/dL 32-36 [facility] Mean platelet volume determi nationOrdered By: [facility] Martín on 01-11-2025 Platelet mean volume (Bld) [Entitic vol] 10.4 fL 6.2-12.0 [facility] Monocyte percentageOrdered B y: Sommer White on 01-11-2025 Monocytes/100 WBC (Bld) 9.4 % 0-10 [facility] Neutrophil percentageOrdered By: [facility] Martín on 01-11-2025 Neutrophils/100 WBC (Bld) 68.3 % 47-70 [facility] No Panel InformationOrdered By: [facility] Martín on 01-11-2025 27 U/L 15-37 [facility] Nucleated red blood cell per centageOrdered By: [facility] Matrín on 01-11-2025 Nucleated RBC/100 WBC (Bld) [Ratio] 0 % 0-5 [facility] Partial Thromboplast Timeon 01-11-2025 aPTT Coag (Bld) [Time] 64.4 s High 24.1-36.2 [facility] Comment on above: Order Comment: Comme nts: time sensitive hep gtt Performed By: #### L 300.4310 ####[facility] [address] [place], [place], [address] aPTT Coag (Bld) [Time] 76.9 s High 24.1-36.2 [facility] Comment on above: Performed By: #### L 300.4310 ####[facility] [address] [place], [place], [address] aPTT Coag (Bld) [Time] 53.2 s High 24.1-36.2 [facility] Comment on above: Order Comment: Comme nts: heparin gtt Performed By: #### L 300.4310 ####[facility] [address] [place], [address] aPTT Coag (Bld) [Time] 28.3 s Normal 24.1-36.2 [facility] Comment on above: Performed By: #### L 300.3900, L300.4310 ####[facility] [address] [place], [address] Platelet countOrdered By: Lissa Resendiz on 01-11-2025 Platelets (Bld) [#/Vol] 158 10*3/uL 150-450 [facility] Potassium measurementOrdered By: Sommer Resendiz on 01-11-2025 Potassium [Moles/Vol] 4.2 mmol/L 3.5-5.1 [facility] Prothrombin Time w/INRon INR Coag (PPP) [Relative time] 1.0 {INR} Normal [facility] Comment on above: Performed By: #### L 300.3900, L300.4310 ####[facility] [address] [place], [address] PT Coag (PPP) [Time] 12.9 s Normal 11.7-14.9 [facility] Comment on above: Performed By: #### L 300.3900, L300.4310 ####[facility] [address] [place], [address] Prothrombin timeOrdered By: Benjy Flores on 01-11-2025 PT Coag (PPP) [Time] 12.9 s 11.7-14.9 [facility] RBC Auto (Bld) [#/Vol]Ordere d By: Sommer Resendiz on 01-11-2025 RBC (Bld) [#/Vol] 4.73 10*6/uL 4.2-5.4 [facility] RESPIRATORY PANEL MOLECULARo n 01-11-2025 RP PANEL Normal [facility] Comment on above: Performed By: #### M 100.638 ####[facility] [address] [place], [address] Rzva-gjy-4Miemmuq By: Sommer Resendiz on 01-11-2025 SARS-CoV-2 (COVID-19) RNA JAYDON+probe Ql (Unsp spec) [facility] Serum anion gap measurementO rdered By: Sommer Resendiz on 01-11-2025 Anion gap [Moles/Vol] 8 mmol/L 5-15 [facility] Serum globulin measurementOr dered By: Sommer Resendiz on 01-11-2025 Globulin (S) [Mass/Vol] 4.0 g/dL 2.2-4.2 [facility] Serum or plasma alanine pizarro otransferase (ALT) measurementOrdered By: Sommer Resendiz on 01-11-2025 ALT [Catalytic activity/Vol] 22 U/L 13-56 [facility] Serum or plasma albumin stefania urement (mass/volume)Ordered By: Sommer Resendiz on 01-11-2025 Albumin [Mass/Vol] 3.4 g/dL 3.2-5.0 [facility] Serum or plasma alkaline anthony sphatase measurementOrdered By: Sommer Resendiz on 01-11-2025 ALP [Catalytic activity/Vol] 182 U/L High 45-117 [facility] Serum or plasma calcium stefania urement (mass/volume)Ordered By: Sommer Resendiz on 01-11-2025 Calcium [Mass/Vol] 9.3 mg/dL 8.5-10.1 [facility] Serum or plasma creatinine m easurement (mass/volume)Ordered By: Sommer Resendiz on 01-11-2025 Creatinine [Mass/Vol] 1.06 mg/dL High 0.55-1.02 [facility] Comment on above: The validity of the calculated GFR & GFRAA in patients over 70 years has not been determined. Clinical correlation is essential. Serum or plasma urea nitroge n measurement (mass/volume)Ordered By: Sommer Resendiz on 01-11-2025 Urea nitrogen [Mass/Vol] 22 mg/dL High 7-18 [facility] Sodium levelOrdered By: Julianu mn Martín on 01-11-2025 Sodium [Moles/Vol] 135 mmol/L Low 136-145 [facility] Total proteinOrdered By: Julian umn Martín on 01-11-2025 Protein [Mass/Vol] 7.4 g/dL 6.4-8.2 [facility] Troponin IOrdered By: Sommer Resendiz on 01-11-2025 Troponin I 1688 pg/mL High 3.0-54.0 [facility] Comment on above: Critical Result(s) C alled at: 10:12:22 01/11/2025 by: Joana Salazar to Fatou. Results read back by same. Please Note: New Test Units and Gender Specific Reference Ranges. For more information see Policy Stat Procedure [place] High Sensitivity Troponin (TNIH) and attachments. White blood cell (WBC) count Ordered By: Sommer Resendiz on 01-11-2025 WBC (Bld) [#/Vol] 5.2 10*3/uL 4.4-11.0 [facility] 12 Lead EKGon 01-10-2025 12 Lead EKG Normal [facility] BNP (brain natriuretic pepti de measurement)Ordered By: Benjy Flores on 01-10-2025 Natriuretic peptide B (Bld) [Mass/Vol] 411.9 pg/mL High 0-100 [facility] BNP,B-Type NATRIURETIC PEPTI Hodan 01-10-2025 Natriuretic peptide B (Bld) [Mass/Vol] 411.9 pg/mL High 0-100 [facility] Comment on above: Performed By: #### L 503.6620 ####[facility] [address] [place], [place], [address] Basic Metabolic Profile (BMP )on 01-10-2025 BUN/CRE 20.4 RATIO High 10-20 [facility] Comment on above: Order Comment: 'TROP ' Serial specimen #1, #2 or #3: 1 Performed By: #### L 100.0100, L501.4020, L500.2500 ####[facility] [address] [place], [address] CA,Total 9.5 mg/dL Normal 8.5-10.1 [facility] Comment on above: Order Comment: 'TROP ' Serial specimen #1, #2 or #3: 1 Performed By: #### L 100.0100, L501.4020, L500.2500 ####[facility] [address] [place], [address] Chloride [Moles/Vol] 101 mmol/L Normal 98-107 [facility] Comment on above: Order Comment: 'TROP ' Serial specimen #1, #2 or #3: 1 Performed By: #### L 100.0100, L501.4020, L500.2500 ####[facility] [address] [place], [address] CO2 [Moles/Vol] 22.0 mmol/L Normal 21.0-32.0 [facility] Comment on above: Order Comment: 'TROP ' Serial specimen #1, #2 or #3: 1 Performed By: #### L 100.0100, L501.4020, L500.2500 ####[facility] [address] [place], [address] Creatinine [Mass/Vol] 1.08 mg/dL High 0.55-1.02 [facility] Comment on above: Order Comment: 'TROP ' Serial specimen #1, #2 or #3: 1 Result Comment: The validity of the calculated GFR GFRAA in patients over70 years has not been determined. Clinical correlation isessential. Performed By: #### L 100.0100, L501.4020, L500.2500 ####[facility] [address] [place], [address] ECRCL 40.02 ml/min Normal [facility] Comment on above: Order Comment: 'TROP ' Serial specimen #1, #2 or #3: 1 Performed By: #### L 100.0100, L501.4020, L500.2500 ####[facility] [address] [place], [address] EST GFR - AA 64 mL/min Normal >60 [facility] Comment on above: Order Comment: 'TROP ' Serial specimen #1, #2 or #3: 1 Result Comment: Afri can Czech GFR Calc Performed By: #### L 100.0100, L501.4020, L500.2500 ####[facility] [address] [place], [address] GAP 11 Normal 5-15 [facility] Comment on above: Order Comment: 'TROP ' Serial specimen #1, #2 or #3: 1 Performed By: #### L 100.0100, L501.4020, L500.2500 ####[facility] [address] [place], [address] GFR/1.73 sq M.predicted among non-blacks MDRD (S/P/Bld) [Vol rate/Area] 53 mL/min/{1.73_m2} Low >60 [facility] Comment on above: Order Comment: 'TROP ' Serial specimen #1, #2 or #3: 1 Result Comment: Non- GFR Calc Performed By: #### L 100.0100, L501.4020, L500.2500 ####[facility] [address] [place], [address] Glucose [Mass/Vol] 114 mg/dL High 74-106 [facility] Comment on above: Order Comment: 'TROP ' Serial specimen #1, #2 or #3: 1 Result Comment: Fast ing Glucose result from 100 to 125 mg/dLsuggests IMPAIRED HOMEOSTASIS per A.D.A. criteria. Performed By: #### L 100.0100, L501.4020, L500.2500 ####[facility] [address] [place], [address] Potassium [Moles/Vol] 3.8 mmol/L Normal 3.5-5.1 [facility] Comment on above: Order Comment: 'TROP ' Serial specimen #1, #2 or #3: 1 Performed By: #### L 100.0100, L501.4020, L500.2500 ####[facility] [address] [place], [address] Sodium [Moles/Vol] 134 mmol/L Low 136-145 [facility] Comment on above: Order Comment: 'TROP ' Serial specimen #1, #2 or #3: 1 Performed By: #### L 100.0100, L501.4020, L500.2500 ####[facility] [address] [place], [address] Urea nitrogen [Mass/Vol] 22 mg/dL High 7-18 [facility] Comment on above: Order Comment: 'TROP ' Serial specimen #1, #2 or #3: 1 Performed By: #### L 100.0100, L501.4020, L500.2500 ####[facility] [address] [place], [address] Brain/Head without Contrasto n 01-10-2024 Brain/Head without Contrast Normal [facility] CBC W/Diff, Automatedon -12 21-2024 Absolute Lymph 0.72 X10 3/uL Low 0.83-4.51 [facility] Comment on above: Performed By: #### L 100.0100, L501.4020, L500.2500 ####[facility] [address] [place], [address] Absolute Neut 5.9 X10 3/uL Normal 2.0-7.7 [facility] Comment on above: Performed By: #### L 100.0100, L501.4020, L500.2500 ####[facility] [address] [place], [address] Basophils/100 WBC (Bld) 0.4 % Normal 0-1 [facility] Comment on above: Performed By: #### L 100.0100, L501.4020, L500.2500 ####[facility] [address] [place], [address] Eosinophils/100 WBC (Bld) 1.4 % Normal 0-5 [facility] Comment on above: Performed By: #### L 100.0100, L501.4020, L500.2500 ####[facility] [address] [place], [address] Erythrocyte distribution width (RBC) [Ratio] 14.9 % High 11.6-14.6 [facility] Comment on above: Performed By: #### L 100.0100, L501.4020, L500.2500 ####[facility] [address] [place], [address] Hematocrit (Bld) [Volume fraction] 40.1 % Normal 37-47 [facility] Comment on above: Performed By: #### L 100.0100, L501.4020, L500.2500 ####[facility] [address] [place], [address] Hemoglobin (Bld) [Mass/Vol] 13.1 g/dL Normal 12.0-15.0 [facility] Comment on above: Performed By: #### L 100.0100, L501.4020, L500.2500 ####[facility] [address] [place], [address] IG% 0.400 Normal 0.0-0.9 [facility] Comment on above: Result Comment: IG% - Immature Granulocytes (promyelocytes, myelocytes andmetamyelocytes) > 1% indicates that a LEFT SHIFT is Present. Performed By: #### L 100.0100, L501.4020, L500.2500 ####[facility] [address] [place], [address] Lymphocytes/100 WBC (Bld) 9.8 % Low 19-41 [facility] Comment on above: Performed By: #### L 100.0100, L501.4020, L500.2500 ####[facility] [address] [place], [address] MCH (RBC) [Entitic mass] 26.6 pg Low 27.0-32.0 [facility] Comment on above: Performed By: #### L 100.0100, L501.4020, L500.2500 ####[facility] [address] [place], [address] MCHC (RBC) [Mass/Vol] 32.7 g/dL Normal 32-36 [facility] Comment on above: Performed By: #### L 100.0100, L501.4020, L500.2500 ####[facility] [address] [place], [address] MCV (RBC) [Entitic vol] 81.5 fL Normal 81-99 [facility] Comment on above: Performed By: #### L 100.0100, L501.4020, L500.2500 ####[facility] [address] [place], [address] Monocytes/100 WBC (Bld) 8.0 % Normal 0-10 [facility] Comment on above: Performed By: #### L 100.0100, L501.4020, L500.2500 ####[facility] [address] [place], [address] Neutrophils/100 WBC (Bld) 80.0 % High 47-70 [facility] Comment on above: Performed By: #### L 100.0100, L501.4020, L500.2500 ####[facility] [address] [place], [address] Nucleated RBC (Bld) [#/Vol] 0 10*3/uL Normal 0-5 [facility] Comment on above: Performed By: #### L 100.0100, L501.4020, L500.2500 ####[facility] [address] [place], [address] Platelet mean volume (Bld) [Entitic vol] 9.8 fL Normal 6.2-12.0 [facility] Comment on above: Performed By: #### L 100.0100, L501.4020, L500.2500 ####[facility] [address] [place], [address] Platelets (Bld) [#/Vol] 147 10*3/uL Low 150-450 [facility] Comment on above: Performed By: #### L 100.0100, L501.4020, L500.2500 ####[facility] [address] [place], [address] RBC (Bld) [#/Vol] 4.92 10*6/uL Normal 4.2-5.4 [facility] Comment on above: Performed By: #### L 100.0100, L501.4020, L500.2500 ####[facility] [address] [place], [address] RDW SD 44.3 fl High 35.1-43.9 [facility] Comment on above: Performed By: #### L 100.0100, L501.4020, L500.2500 ####[facility] [address] [place], [address] WBC (Bld) [#/Vol] 7.4 10*3/uL Normal 4.4-11.0 [facility] Comment on above: Performed By: #### L 100.0100, L501.4020, L500.2500 ####[facility] [address] [place], [address] Chest 1 View (Portable)on Chest 1 View (Portable) Normal [facility] Emergency Department Summary on 01-10-2025 Emergency Department Summary Normal [facility] H AND P Exam - Hospitaliston 01-10-2025 H&P Exam - Hospitalist Normal [facility] L501.4020on 01-10-2025 TROPONIN-I HS 2243 pg/mL Invalid Interpretation Code 3.0-54.0 [facility] Comment on above: Order Comment: 'TROP ' Serial specimen #1, #2 or #3: 1 Result Comment: Crit ical Result(s) Called at: :15:33 01/10/2025 by: BERYL to Juventino Rodrigez. Results read back by same. Please Note: New Test Units and Gender Specific Reference Ranges. For more information see Policy Stat Procedure [place] High Sensitivity Troponin (TNIH) and attachments. Performed By: #### L 100.0100, L501.4020, L500.2500 ####[facility] [address] [place], [address] Magnesium measurementOrdered By: Sommer Resendiz on 01-10-2025 Magnesium [Mass/Vol] 2.0 mg/dL 1.6-2.6 [facility] Respiratory pathogens detect ion panel by molecular detection methodOrdered By: Sommer Resendiz on 01-10-2025 Respiratory pathogens DNA and RNA panel JAYDON+probe (Resp) [facility] Pulmonary Visit Reporton Pulmonary Visit Report Normal [facility] Cardiology Visit Reporton Cardiology Visit Report Normal [facility] 12 Lead EKGon 12-17-2024 12 Lead EKG Normal [facility] Basic Metabolic Profile (BMP )on 12-17-2024 BUN/CRE 24.1 RATIO High 10-20 [facility] Comment on above: Order Comment: 1Y Performed By: #### L 503.6005, L500.2500, L100.0500, L501.5425 ####[facility] [address] [place], [address] CA,Total 9.0 mg/dL Normal 8.5-10.1 [facility] Comment on above: Order Comment: 1Y Performed By: #### L 503.6005, L500.2500, L100.0500, L501.5425 ####[facility] [address] [place], [address] Chloride [Moles/Vol] 106 mmol/L Normal 98-107 [facility] Comment on above: Order Comment: 1Y Performed By: #### L 503.6005, L500.2500, L100.0500, L501.5425 ####[facility] [address] [place], [address] CO2 [Moles/Vol] 27.0 mmol/L Normal 21.0-32.0 [facility] Comment on above: Order Comment: 1Y Performed By: #### L 503.6005, L500.2500, L100.0500, L501.5425 ####[facility] [address] [place], [address] Creatinine [Mass/Vol] 1.08 mg/dL High 0.55-1.02 [facility] Comment on above: Order Comment: 1Y Result Comment: The validity of the calculated GFR GFRAA in patients over70 years has not been determined. Clinical correlation isessential. Performed By: #### L 503.6005, L500.2500, L100.0500, L501.5425 ####[facility] [address] [place], [address] ECRCL 40.75 ml/min Normal [facility] Comment on above: Order Comment: 1Y Performed By: #### L 503.6005, L500.2500, L100.0500, L501.5425 ####[facility] [address] [place], [address] EST GFR - AA 64 mL/min Normal >60 [facility] Comment on above: Order Comment: 1Y Result Comment: Afri can Czech GFR Calc Performed By: #### L 503.6005, L500.2500, L100.0500, L501.5425 ####[facility] [address] [place], [address] GAP 7 Normal 5-15 [facility] Comment on above: Order Comment: 1Y Performed By: #### L 503.6005, L500.2500, L100.0500, L501.5425 ####[facility] [address] [place], [address] GFR/1.73 sq M.predicted among non-blacks MDRD (S/P/Bld) [Vol rate/Area] 53 mL/min/{1.73_m2} Low >60 [facility] Comment on above: Order Comment: 1Y Result Comment: Non- GFR Calc Performed By: #### L 503.6005, L500.2500, L100.0500, L501.5425 ####[facility] [address] [place], [address] Glucose [Mass/Vol] 96 mg/dL Normal 74-106 [facility] Comment on above: Order Comment: 1Y Performed By: #### L 503.6005, L500.2500, L100.0500, L501.5425 ####[facility] [address] [place], [address] Potassium [Moles/Vol] 4.4 mmol/L Normal 3.5-5.1 [facility] Comment on above: Order Comment: 1Y Performed By: #### L 503.6005, L500.2500, L100.0500, L501.5425 ####[facility] [address] [place], [address] Sodium [Moles/Vol] 140 mmol/L Normal 136-145 [facility] Comment on above: Order Comment: 1Y Performed By: #### L 503.6005, L500.2500, L100.0500, L501.5425 ####[facility] [address] [place], [address] Urea nitrogen [Mass/Vol] 26 mg/dL High 7-18 [facility] Comment on above: Order Comment: 1Y Performed By: #### L 503.6005, L500.2500, L100.0500, L501.5425 ####[facility] [address] [place], [address] CBC-Complete Blood Cnt No Di ffon 01-29-2025 Erythrocyte distribution width (RBC) [Ratio] 15.8 % High 11.6-14.6 [facility] Comment on above: Performed By: #### L 503.6005, L500.2500, L100.0500, L501.5425 ####[facility] [address] [place], [address] Hematocrit (Bld) [Volume fraction] 35.3 % Low 37-47 [facility] Comment on above: Performed By: #### L 503.6005, L500.2500, L100.0500, L501.5425 ####[facility] [address] [place], [address] Hemoglobin (Bld) [Mass/Vol] 11.3 g/dL Low 12.0-15.0 [facility] Comment on above: Performed By: #### L 503.6005, L500.2500, L100.0500, L501.5425 ####[facility] [address] [place], [address] MCH (RBC) [Entitic mass] 27.4 pg Normal 27.0-32.0 [facility] Comment on above: Performed By: #### L 503.6005, L500.2500, L100.0500, L501.5425 ####[facility] [address] [place], [address] MCHC (RBC) [Mass/Vol] 32.0 g/dL Normal 32-36 [facility] Comment on above: Performed By: #### L 503.6005, L500.2500, L100.0500, L501.5425 ####[facility] [address] [place], [address] MCV (RBC) [Entitic vol] 85.5 fL Normal 81-99 [facility] Comment on above: Performed By: #### L 503.6005, L500.2500, L100.0500, L501.5425 ####[facility] [address] [place], [address] Platelet mean volume (Bld) [Entitic vol] 9.9 fL Normal 6.2-12.0 [facility] Comment on above: Performed By: #### L 503.6005, L500.2500, L100.0500, L501.5425 ####[facility] [address] [place], [address] Platelets (Bld) [#/Vol] 230 10*3/uL Normal 150-450 [facility] Comment on above: Performed By: #### L 503.6005, L500.2500, L100.0500, L501.5425 ####[facility] [address] [place], [address] RBC (Bld) [#/Vol] 4.13 10*6/uL Low 4.2-5.4 [facility] Comment on above: Performed By: #### L 503.6005, L500.2500, L100.0500, L501.5425 ####[facility] [address] [place], [address] RDW SD 49.2 fl High 35.1-43.9 [facility] Comment on above: Performed By: #### L 503.6005, L500.2500, L100.0500, L501.5425 ####[facility] [address] [place], [address] WBC (Bld) [#/Vol] 8.8 10*3/uL Normal 4.4-11.0 [facility] Comment on above: Performed By: #### L 503.6005, L500.2500, L100.0500, L501.5425 ####[facility] [address] [place], [address] Carbon dioxide measurementOr dered By: Jeffy Willoughby on 12-17-2024 CO2 [Moles/Vol] 27.0 mmol/L 21.0-32.0 [facility] Chest PA and Lateralon 12-17 Chest PA and Lateral Normal [facility] Chloride measurementOrdered By: Jeffyaura Willoughby on 12-17-2024 Chloride [Moles/Vol] 106 mmol/L 98-107 [facility] Emergency Department Summary on 12-17-2024 Emergency Department Summary Normal [facility] Erythrocyte distribution wid th [facility]Ordered By: [facility] Erythrocyte distribution width (RBC) [Ratio] 15.8 % High 11.6-14.6 [facility] Erythrocyte distribution wid th standard deviationOrdered By: [facility] on 12-17-2024 Erythrocyte distribution width (RBC) [Ratio] 49.2 fl High 35.1-43.9 [facility] Glomerular filtration rate ( GFR) estimationOrdered By: [facility] on 12-17-2024 GFR/1.73 sq M.predicted among non-blacks MDRD (S/P/Bld) [Vol rate/Area] 53 mL/min/{1.73_m2} Low >60 [facility] Glucose measurementOrdered B y: Jeffy Willoughby on 12-17-2024 Glucose [Mass/Vol] 96 mg/dL 74-106 [facility] Hematocrit Auto (Bld) [Volum e fraction]Ordered By: [facility] 12-17-2024 Hematocrit (Bld) [Volume fraction] 35.3 % Low 37-47 [facility] Hemoglobin measurementOrdere d By: Jeffyaura Willoughby on 12-17-2024 Hemoglobin (Bld) [Mass/Vol] 11.3 g/dL Low 12.0-15.0 [facility] L501.4020on 12-17-2024 TROPONIN-I HS 23 pg/mL Normal 3.0-54.0 [facility] Comment on above: Result Comment: Stacy pringle Note: New Test Units and Gender Specific Reference Ranges. For more information see Policy Stat Procedure [place] High Sensitivity Troponin (TNIH) and attachments. Performed By: #### L 501.4020 ####[facility] [address] [place], [address] L501.5425on 12-17-2024 TROPONIN-I HS 24 pg/mL Normal 3.0-54.0 [facility] Comment on above: Order Comment: 1Y Result Comment: Stacy pringle Note: New Test Units and Gender Specific Reference Ranges. For more information see Policy Stat Procedure [place] High Sensitivity Troponin (TNIH) and attachments. Performed By: #### L 503.6005, L500.2500, L100.0500, L501.5425 ####[facility] [address] [place], [address] Lactic Acidon 12-17-2024 Lactate [Moles/Vol] 1.5 mmol/L Normal 0.4-1.9 [facility] Comment on above: Order Comment: Y Performed By: #### L 503.6005, L500.2500, L100.0500, L501.5425 ####[facility] [address] [place], [place], [address] MCV (mean corpuscular volume ) determinationOrdered By: Jeffyaura Willoughby on 12-17-2024 MCV (RBC) [Entitic vol] 85.5 fL 81-99 [facility] Mean corpuscular hemoglobin (MCH) determinationOrdered By: Jeffy Willoughby on 12-17-2024 MCH (RBC) [Entitic mass] 27.4 pg 27.0-32.0 [facility] Platelet [facility]Ordered By: [facility] 12-[facility] Platelets (Bld) [#/Vol] 230 10*3/uL 150-450 [facility] Potassium measurementOrdered By: Jeffy Willoughby on 12-17-2024 Potassium [Moles/Vol] 4.4 mmol/L 3.5-5.1 [facility] RBC Auto (Bld) [#/Vol]Ordere d By: Jeffyaura Wliloughby on 12-17-2024 RBC (Bld) [#/Vol] 4.13 10*6/uL Low 4.2-5.4 [facility] Serum or plasma calcium stefania urement (mass/volume)Ordered By: Jeffyaura Willoughby on 12-17-2024 Calcium [Mass/Vol] 9.0 mg/dL 8.5-10.1 [facility] Serum or plasma creatinine m easurement (mass/volume)Ordered By: Jeffy Willoughby on 12-17-2024 Creatinine [Mass/Vol] 1.08 mg/dL High 0.55-1.02 [facility] Serum or plasma urea nitroge n measurement (mass/volume)Ordered By: Jeffy Willoughby on 12-17-2024 Urea nitrogen [Mass/Vol] 26 mg/dL High 7-18 [facility] Sodium levelOrdered By: Jeffy Willoughby on 12-17-2024 Sodium [Moles/Vol] 140 mmol/L 136-145 [facility] Troponin IOrdered By: Jeffy rosario on 12-17-2024 Troponin I 23 pg/mL 3.0-54.0 [facility] White blood cell (WBC) count Ordered By: Jeffy Willoughby on 12-17-2024 WBC (Bld) [#/Vol] 8.8 10*3/uL 4.4-11.0 [facility] 12 Lead EKGon 12-11-2024 12 Lead EKG Normal [facility] Bilirubin, totalOrdered By: Kofi Weiner on 12-11-2024 Bilirubin [Mass/Vol] 0.30 mg/dL 0.20-1.00 [facility] CBC-Complete Blood Cnt No Di ffon 12-11-2024 Erythrocyte distribution width (RBC) [Ratio] 15.4 % High 11.6-14.6 [facility] Comment on above: Performed By: #### L 100.0500, L500.4050 ####[facility] [address] [place], [place], [address] Hematocrit (Bld) [Volume fraction] 35.3 % Low 37-47 [facility] Comment on above: Performed By: #### L 100.0500, L500.4050 ####[facility] [address] [place], [address] Hemoglobin (Bld) [Mass/Vol] 11.2 g/dL Low 12.0-15.0 [facility] Comment on above: Performed By: #### L 100.0500, L500.4050 ####[facility] [address] [place], [address] MCH (RBC) [Entitic mass] 26.4 pg Low 27.0-32.0 [facility] Comment on above: Performed By: #### L 100.0500, L500.4050 ####[facility] [address] [place], [address] MCHC (RBC) [Mass/Vol] 31.7 g/dL Low 32-36 [facility] Comment on above: Performed By: #### L 100.0500, L500.4050 ####[facility] [address] [place], [address] MCV (RBC) [Entitic vol] 83.3 fL Normal 81-99 [facility] Comment on above: Performed By: #### L 100.0500, L500.4050 ####[facility] [address] [place], [address] Platelet mean volume (Bld) [Entitic vol] 10.0 fL Normal 6.2-12.0 [facility] Comment on above: Performed By: #### L 100.0500, L500.4050 ####[facility] [address] [place], [address] Platelets (Bld) [#/Vol] 197 10*3/uL Normal 150-450 [facility] Comment on above: Performed By: #### L 100.0500, L500.4050 ####[facility] [address] [place], [address] RBC (Bld) [#/Vol] 4.24 10*6/uL Normal 4.2-5.4 [facility] Comment on above: Performed By: #### L 100.0500, L500.4050 ####[facility] [address] [place], [address] RDW SD 46.5 fl High 35.1-43.9 [facility] Comment on above: Performed By: #### L 100.0500, L500.4050 ####[facility] [address] [place], [address] WBC (Bld) [#/Vol] 7.7 10*3/uL Normal 4.4-11.0 [facility] Comment on above: Performed By: #### L 100.0500, L500.4050 ####[facility] [address] [place], [address] Carbon dioxide measurementOr dered By: Kofi Weiner on 12-11-2024 CO2 [Moles/Vol] 24.0 mmol/L 21.0-32.0 [facility] Cardiac Cath Diagnosticon Cardiac Cath Diagnostic Normal [facility] Chloride measurementOrdered By: Kofi Weiner on 12-11-2024 Chloride [Moles/Vol] 103 mmol/L 98-107 [facility] Comprehensive Metabolic Prof ilon 12-11-2024 Albumin [Mass/Vol] 3.0 g/dL Low 3.2-5.0 [facility] Comment on above: Performed By: #### L 100.0500, L500.4050 ####[facility] [address] [place], [address] Albumin/Globulin [Mass ratio] 0.9 {ratio} Normal 0.9-2.4 [facility] Comment on above: Performed By: #### L 100.0500, L500.4050 ####[facility] [address] [place], [address] ALK P 123 U/L High 45-117 [facility] Comment on above: Performed By: #### L 100.0500, L500.4050 ####[facility] [address] [place], [address] ALT [Catalytic activity/Vol] 12 U/L Low 13-56 [facility] Comment on above: Performed By: #### L 100.0500, L500.4050 ####[facility] [address] [place], [address] AST [Catalytic activity/Vol] 13 U/L Low 15-37 [facility] Comment on above: Performed By: #### L 100.0500, L500.4050 ####[facility] [address], [address] Bilirubin [Mass/Vol] 0.30 mg/dL Normal 0.20-1.00 [facility] Comment on above: Result Comment: For patients on eltrombopag therapy, use of Dimension [place] TBIL is not recommended. Performed By: #### L 100.0500, L500.4050 ####[facility] [address], [address] BUN/CRE 20.3 RATIO High 10-20 [facility] Comment on above: Performed By: #### L 100.0500, L500.4050 ####[facility] [address] [place], [address] CA,Total 8.9 mg/dL Normal 8.5-10.1 [facility] Comment on above: Performed By: #### L 100.0500, L500.4050 ####[facility] [address] [place], [address] Chloride [Moles/Vol] 103 mmol/L Normal 98-107 [facility] Comment on above: Performed By: #### L 100.0500, L500.4050 ####[facility] [address] [place], [address] CO2 [Moles/Vol] 24.0 mmol/L Normal 21.0-32.0 [facility] Comment on above: Performed By: #### L 100.0500, L500.4050 ####[facility] [address] [place], [address] Creatinine [Mass/Vol] 1.18 mg/dL High 0.55-1.02 [facility] Comment on above: Result Comment: The validity of the calculated GFR GFRAA in patients over70 years has not been determined. Clinical correlation isessential. Performed By: #### L 100.0500, L500.4050 ####[facility] [address] [place], [address] ECRCL 36.07 ml/min Normal [facility] Comment on above: Performed By: #### L 100.0500, L500.4050 ####[facility] [address] [place], [address] EST GFR - AA 58 mL/min Low >60 [facility] Comment on above: Result Comment: Afri can Czech GFR Calc Performed By: #### L 100.0500, L500.4050 ####[facility] [address] [place], [address] GAP 8 Normal 5-15 [facility] Comment on above: Performed By: #### L 100.0500, L500.4050 ####[facility] [address] [place], [address] GFR/1.73 sq M.predicted among non-blacks MDRD (S/P/Bld) [Vol rate/Area] 48 mL/min/{1.73_m2} Low >60 [facility] Comment on above: Result Comment: Non- GFR Calc Performed By: #### L 100.0500, L500.4050 ####[facility] [address] [place], [address] Globulin (S) [Mass/Vol] 3.4 g/dL Normal 2.2-4.2 [facility] Comment on above: Performed By: #### L 100.0500, L500.4050 ####[facility] [address] [place], [address] Glucose [Mass/Vol] 98 mg/dL Normal 74-106 [facility] Comment on above: Performed By: #### L 100.0500, L500.4050 ####[facility] [address] [place], [address] Potassium [Moles/Vol] 4.0 mmol/L Normal 3.5-5.1 [facility] Comment on above: Performed By: #### L 100.0500, L500.4050 ####[facility] [address] [place], [address] Sodium [Moles/Vol] 135 mmol/L Low 136-145 [facility] Comment on above: Performed By: #### L 100.0500, L500.4050 ####[facility] [address] [place], [address] T PROT 6.4 g/dL Normal 6.4-8.2 [facility] Comment on above: Performed By: #### L 100.0500, L500.4050 ####[facility] [address], [address] Urea nitrogen [Mass/Vol] 24 mg/dL High 7-18 [facility] Comment on above: Performed By: #### L 100.0500, L500.4050 ####[facility] [address] [place], [address] Discharge Instructionon 11-20 Discharge Instruction Normal [facility] Erythrocyte distribution wid th ratioOrdered By: Kofi Weiner on 12-11-2024 Erythrocyte distribution width (RBC) [Ratio] 15.4 % High 11.6-14.6 [facility] Erythrocyte distribution wid th standard deviationOrdered By: Kofi Weiner on 12-11-2024 Erythrocyte distribution width (RBC) [Ratio] 46.5 fl High 35.1-43.9 [facility] Glomerular filtration rate ( GFR) estimationOrdered By: Kofi Weiner on 12-11-2024 GFR/1.73 sq M.predicted among non-blacks MDRD (S/P/Bld) [Vol rate/Area] 48 mL/min/{1.73_m2} Low >60 [facility] Glucose measurementOrdered B y: Kofi Weiner on 12-11-2024 Glucose [Mass/Vol] 98 mg/dL 74-106 [facility] Hematocrit Auto (Bld) [Volum e fraction]Ordered By: Kofi Weiner on 12-11-2024 Hematocrit (Bld) [Volume fraction] 35.3 % Low 37-47 [facility] Hemoglobin measurementOrdere d By: Kofi Weiner on 12-11-2024 Hemoglobin (Bld) [Mass/Vol] 11.2 g/dL Low 12.0-15.0 [facility] MCV (mean corpuscular volume ) determinationOrdered By: Kofi Weiner on 12-11-2024 MCV (RBC) [Entitic vol] 83.3 fL 81-99 [facility] Mean corpuscular hemoglobin (MCH) determinationOrdered By: Kofi Weiner on 12-11-2024 MCH (RBC) [Entitic mass] 26.4 pg Low 27.0-32.0 [facility] No Panel InformationOrdered By: Kofi Weiner on 12-11-2024 13 U/L Low 15-37 [facility] Platelet countOrdered By: Kacie Weiner on 12-11-2024 Platelets (Bld) [#/Vol] 197 10*3/uL 150-450 [facility] Potassium measurementOrdered By: Kofi Weiner on 12-11-2024 Potassium [Moles/Vol] 4.0 mmol/L 3.5-5.1 [facility] RBC Auto (Bld) [#/Vol]Ordere d By: Kofi Weiner on 12-11-2024 RBC (Bld) [#/Vol] 4.24 10*6/uL 4.2-5.4 [facility] Serum globulin measurementOr dered By: Kofi Weiner on 12-11-2024 Globulin (S) [Mass/Vol] 3.4 g/dL 2.2-4.2 [facility] Serum or plasma alanine pizarro otransferase (ALT) measurementOrdered By: Kofi Weiner on 12-11-2024 ALT [Catalytic activity/Vol] 12 U/L Low 13-56 [facility] Serum or plasma albumin stefania urement (mass/volume)Ordered By: Kofi Weiner on 12-11-2024 Albumin [Mass/Vol] 3.0 g/dL Low 3.2-5.0 [facility] Serum or plasma alkaline anthony sphatase measurementOrdered By: Kofi Weiner on 12-11-2024 ALP [Catalytic activity/Vol] 123 U/L High 45-117 [facility] Serum or plasma calcium stefania urement (mass/volume)Ordered By: Kofi Weiner on 12-11-2024 Calcium [Mass/Vol] 8.9 mg/dL 8.5-10.1 [facility] Serum or plasma creatinine m easurement (mass/volume)Ordered By: Kofi Weiner on 12-11-2024 Creatinine [Mass/Vol] 1.18 mg/dL High 0.55-1.02 [facility] Serum or plasma urea nitroge n measurement (mass/volume)Ordered By: Kofi Weiner on 12-11-2024 Urea nitrogen [Mass/Vol] 24 mg/dL High 7-18 [facility] Sodium levelOrdered By: Jose Weiner on 12-11-2024 Sodium [Moles/Vol] 135 mmol/L Low 136-145 [facility] Stool Occult Blood iFOBon STOB Normal [facility] Comment on above: Performed By: #### M 100.7900 ####[facility] [address] [place], [address] Stool gastrointestinal hemog lobin detection by immunologic methodOrdered By: Trina Tyler on 12-11-2024 Lower GI hemoglobin IA Ql (Stl) [facility] Total proteinOrdered By: Billy Weiner on 12-11-2024 Protein [Mass/Vol] 6.4 g/dL 6.4-8.2 [facility] White blood cell (WBC) count Ordered By: Kofi Weiner on 12-11-2024 WBC (Bld) [#/Vol] 7.7 10*3/uL 4.4-11.0 [facility] 12 Lead EKGon 12-10-2024 12 Lead EKG Normal [facility] 12 Lead EKG Normal [facility] Absolute lymphocyte countOrd ered By: Trina Tyler on 12-10-2024 Lymphocytes Auto (Unsp spec) [#/Vol] 0.76 10*3/uL Low 0.83-4.51 [facility] Automated lymphocyte count a s percentage of total leukocytesOrdered By: Trina Tyler on 12-10-2024 Lymphocytes/100 WBC Auto (Unsp spec) 10.6 % Low 19-41 [facility] Basic Metabolic Profile (BMP )on 12-10-2024 BUN/CRE 22.3 RATIO High 10-20 [facility] Comment on above: Performed By: #### L 500.2500, L501.9520, L500.4100, L100.0100 ####[facility] [address] [place], [address] CA,Total 9.2 mg/dL Normal 8.5-10.1 [facility] Comment on above: Performed By: #### L 500.2500, L501.9520, L500.4100, L100.0100 ####[facility] [address] [place], [address] Chloride [Moles/Vol] 103 mmol/L Normal 98-107 [facility] Comment on above: Performed By: #### L 500.2500, L501.9520, L500.4100, L100.0100 ####[facility] [address] [place], [address] CO2 [Moles/Vol] 26.0 mmol/L Normal 21.0-32.0 [facility] Comment on above: Performed By: #### L 500.2500, L501.9520, L500.4100, L100.0100 ####[facility] [address] [place], [address] Creatinine [Mass/Vol] 1.03 mg/dL High 0.55-1.02 [facility] Comment on above: Result Comment: The validity of the calculated GFR GFRAA in patients over70 years has not been determined. Clinical correlation isessential. Performed By: #### L 500.2500, L501.9520, L500.4100, L100.0100 ####[facility] [address] [place], [address] ECRCL 41.32 ml/min Normal [facility] Comment on above: Performed By: #### L 500.2500, L501.9520, L500.4100, L100.0100 ####[facility] [address] [place], [address] EST GFR - AA 68 mL/min Normal >60 [facility] Comment on above: Result Comment: Afri can Czech GFR Calc Performed By: #### L 500.2500, L501.9520, L500.4100, L100.0100 ####[facility] [address] [place], [address] GAP 9 Normal 5-15 [facility] Comment on above: Performed By: #### L 500.2500, L501.9520, L500.4100, L100.0100 ####[facility] [address] [place], [address] GFR/1.73 sq M.predicted among non-blacks MDRD (S/P/Bld) [Vol rate/Area] 56 mL/min/{1.73_m2} Low >60 [facility] Comment on above: Result Comment: Non- GFR Calc Performed By: #### L 500.2500, L501.9520, L500.4100, L100.0100 ####[facility] [address] [place], [address] Glucose [Mass/Vol] 85 mg/dL Normal 74-106 [facility] Comment on above: Performed By: #### L 500.2500, L501.9520, L500.4100, L100.0100 ####[facility] [address] [place], [address] Potassium [Moles/Vol] 3.8 mmol/L Normal 3.5-5.1 [facility] Comment on above: Performed By: #### L 500.2500, L501.9520, L500.4100, L100.0100 ####[facility] [address] [place], [address] Sodium [Moles/Vol] 138 mmol/L Normal 136-145 [facility] Comment on above: Performed By: #### L 500.2500, L501.9520, L500.4100, L100.0100 ####[facility] [address] [place], [address] Urea nitrogen [Mass/Vol] 23 mg/dL High 7-18 [facility] Comment on above: Performed By: #### L 500.2500, L501.9520, L500.4100, L100.0100 ####[facility] [address] [place], [address] Basophil percentageOrdered B y: Trina Tyler on 12-10-2024 Basophils/100 WBC (Bld) 0.7 % 0-1 [facility] CBC W/Diff, Automatedon 11-20 Absolute Lymph 0.76 X10 3/uL Low 0.83-4.51 [facility] Comment on above: Performed By: #### L 500.2500, L501.9520, L500.4100, L100.0100 ####[facility] [address] [place], [address] Absolute Neut 5.7 X10 3/uL Normal 2.0-7.7 [facility] Comment on above: Performed By: #### L 500.2500, L501.9520, L500.4100, L100.0100 ####[facility] [address] [place], [address] Basophils/100 WBC (Bld) 0.7 % Normal 0-1 [facility] Comment on above: Performed By: #### L 500.2500, L501.9520, L500.4100, L100.0100 ####[facility] [address] [place], [address] Eosinophils/100 WBC (Bld) 1.5 % Normal 0-5 [facility] Comment on above: Performed By: #### L 500.2500, L501.9520, L500.4100, L100.0100 ####[facility] [address] [place], [address] Erythrocyte distribution width (RBC) [Ratio] 15.3 % High 11.6-14.6 [facility] Comment on above: Performed By: #### L 500.2500, L501.9520, L500.4100, L100.0100 ####[facility] [address] [place], [address] Hematocrit (Bld) [Volume fraction] 37.9 % Normal 37-47 [facility] Comment on above: Performed By: #### L 500.2500, L501.9520, L500.4100, L100.0100 ####[facility] [address] [place], [address] Hemoglobin (Bld) [Mass/Vol] 12.2 g/dL Normal 12.0-15.0 [facility] Comment on above: Performed By: #### L 500.2500, L501.9520, L500.4100, L100.0100 ####[facility] [address] [place], [address] IG% 0.400 Normal 0.0-0.9 [facility] Comment on above: Result Comment: IG% - Immature Granulocytes (promyelocytes, myelocytes andmetamyelocytes) > 1% indicates that a LEFT SHIFT is Present. Performed By: #### L 500.2500, L501.9520, L500.4100, L100.0100 ####[facility] [address] [place], [address] Lymphocytes/100 WBC (Bld) 10.6 % Low 19-41 [facility] Comment on above: Performed By: #### L 500.2500, L501.9520, L500.4100, L100.0100 ####[facility] [address] [place], [address] MCH (RBC) [Entitic mass] 27.0 pg Normal 27.0-32.0 [facility] Comment on above: Performed By: #### L 500.2500, L501.9520, L500.4100, L100.0100 ####[facility] [address] [place], [address] MCHC (RBC) [Mass/Vol] 32.2 g/dL Normal 32-36 [facility] Comment on above: Performed By: #### L 500.2500, L501.9520, L500.4100, L100.0100 ####[facility] [address] [place], [address] MCV (RBC) [Entitic vol] 83.8 fL Normal 81-99 [facility] Comment on above: Performed By: #### L 500.2500, L501.9520, L500.4100, L100.0100 ####[facility] [address] [place], [address] Monocytes/100 WBC (Bld) 7.4 % Normal 0-10 [facility] Comment on above: Performed By: #### L 500.2500, L501.9520, L500.4100, L100.0100 ####[facility] [address] [place], [address] Neutrophils/100 WBC (Bld) 79.4 % High 47-70 [facility] Comment on above: Performed By: #### L 500.2500, L501.9520, L500.4100, L100.0100 ####[facility] [address] [place], [address] Nucleated RBC (Bld) [#/Vol] 0 10*3/uL Normal 0-5 [facility] Comment on above: Performed By: #### L 500.2500, L501.9520, L500.4100, L100.0100 ####[facility] [address] [place], [address] Platelet mean volume (Bld) [Entitic vol] 9.7 fL Normal 6.2-12.0 [facility] Comment on above: Performed By: #### L 500.2500, L501.9520, L500.4100, L100.0100 ####[facility] [address] [place], [address] Platelets (Bld) [#/Vol] 175 10*3/uL Normal 150-450 [facility] Comment on above: Performed By: #### L 500.2500, L501.9520, L500.4100, L100.0100 ####[facility] [address] [place], [address] RBC (Bld) [#/Vol] 4.52 10*6/uL Normal 4.2-5.4 [facility] Comment on above: Performed By: #### L 500.2500, L501.9520, L500.4100, L100.0100 ####[facility] [address] [place], [address] RDW SD 46.5 fl High 35.1-43.9 [facility] Comment on above: Performed By: #### L 500.2500, L501.9520, L500.4100, L100.0100 ####[facility] [address] [place], [address] WBC (Bld) [#/Vol] 7.2 10*3/uL Normal 4.4-11.0 [facility] Comment on above: Performed By: #### L 500.2500, L501.9520, L500.4100, L100.0100 ####[facility] [address] [place], [address] Consultation - Cardiologyon 12-10-2024 Consultation - Cardiology Normal [facility] Eosinophil percentageOrdered By: Trina Tyler on 12-10-2024 Eosinophils/100 WBC (Bld) 1.5 % 0-5 [facility] High density lipoprotein (HD L) measurementOrdered By: Trina Tyler on 12-10-2024 High density lipoprotein (HDL) measurement 49 mg/dL >40 [facility] Immature granulocytes/100 WB C Auto (Bld)Ordered By: Trina Tyler on 12-10-2024 Immature granulocytes/100 WBC (Bld) 0.400 % 0.0-0.9 [facility] Lipid Profileon 12-10-2024 Cholesterol [Mass/Vol] 189 mg/dL Normal 200 [facility] Comment on above: Result Comment: <200 mg/dL Desirable 200-240 mg/dL Borderline >240 mg/dL High Risk Performed By: #### L 500.2500, L501.9520, L500.4100, L100.0100 ####[facility] [address] [place], [address] Cholesterol in HDL [Mass/Vol] 49 mg/dL Normal [facility] Comment on above: Result Comment: The drugs N-Acetylcysteine and Metamizole may falselydepress this assay. Reference Range HDL <40 mg/dL Low HDL Cholesterol HDL >or= 60 mg/dL High HDL Cholesterol Performed By: #### L 500.2500, L501.9520, L500.4100, L100.0100 ####[facility] [address] [place], [address] Cholesterol in LDL [Mass/Vol] 119 mg/dL Normal 0-130 [facility] Comment on above: Performed By: #### L 500.2500, L501.9520, L500.4100, L100.0100 ####[facility] [address] [place], [address] Cholesterol in VLDL [Mass/Vol] 21 mg/dL Normal 5-40 [facility] Comment on above: Performed By: #### L 500.2500, L501.9520, L500.4100, L100.0100 ####[facility] [address] [place], [address] Triglyceride [Mass/Vol] 106 mg/dL Normal [facility] Comment on above: Result Comment: The drugs N-Acetylcysteine and Metamizole may falselydepress this assay.Serum Triglycerides Reference Interval Normal <150 mg/dL Borderline high 150 - 199 mg/dL High 200 - 499 mg/dL Very High > or = 500 mg/dL Performed By: #### L 500.2500, L501.9520, L500.4100, L100.0100 ####[facility] [address] [place], [address] Low density lipoprotein (LDL ) cholesterol measurementOrdered By: Trina Tyler on 12-10-2024 Low density lipoprotein (LDL) cholesterol measurement 119 mg/dL 0-130 [facility] Monocyte percentageOrdered B y: Trina Tyler on 12-10-2024 Monocytes/100 WBC (Bld) 7.4 % 0-10 [facility] Neutrophil percentageOrdered By: Trina Tyler on 12-10-2024 Neutrophils/100 WBC (Bld) 79.4 % High 47-70 [facility] Serum or plasma cholesterol measurement (mass/volume)Ordered By: Trina Tyler on 12-10-2024 Cholesterol [Mass/Vol] 189 mg/dL <200 [facility] Serum or plasma thyroid stim ulating hormone (TSH) measurement (units/volume)Ordered By: Trina Tyler on 12-10-2024 TSH Qn 0.715 uIU/mL 0.358-3.74 0 [facility] Thyroid Stim Hormone (TSH)on 12-10-2024 TSH 0.715 uIU/mL Normal 0.358-3.74 0 [facility] Comment on above: Performed By: #### L 500.2500, L501.9520, L500.4100, L100.0100 ####[facility] [address] [place], [address] Very low density lipoprotein (VLDL) cholesterol measurementOrdered By: Trina Tyler on 12-10-2024 Very low density lipoprotein (VLDL) cholesterol measurement 21 mg/dL 5-40 [facility] 12 Lead EKGon 12-09-2024 12 Lead EKG Normal [facility] 12 Lead EKG Normal [facility] 12 Lead EKG Normal [facility] Basic Metabolic Profile (BMP )on 12-09-2024 BUN/CRE 14.3 RATIO Normal 10-20 [facility] Comment on above: Order Comment: 1Y Performed By: #### L 501.5425, L501.5200, L500.2500, L100.0100 ####[facility] [address] [place], [address] CA,Total 9.8 mg/dL Normal 8.5-10.1 [facility] Comment on above: Order Comment: 1Y Performed By: #### L 501.5425, L501.5200, L500.2500, L100.0100 ####[facility] [address] [place], [address] Chloride [Moles/Vol] 104 mmol/L Normal 98-107 [facility] Comment on above: Order Comment: 1Y Performed By: #### L 501.5425, L501.5200, L500.2500, L100.0100 ####[facility] [address] [place], [address] CO2 [Moles/Vol] 26.0 mmol/L Normal 21.0-32.0 [facility] Comment on above: Order Comment: 1Y Performed By: #### L 501.5425, L501.5200, L500.2500, L100.0100 ####[facility] [address] [place], [address] Creatinine [Mass/Vol] 1.26 mg/dL High 0.55-1.02 [facility] Comment on above: Order Comment: 1Y Result Comment: The validity of the calculated GFR GFRAA in patients over70 years has not been determined. Clinical correlation isessential. Performed By: #### L 501.5425, L501.5200, L500.2500, L100.0100 ####[facility] [address] [place], [address] ECRCL 29.84 ml/min Normal [facility] Comment on above: Order Comment: 1Y Performed By: #### L 501.5425, L501.5200, L500.2500, L100.0100 ####[facility] [address] [place], [address] EST GFR - AA 54 mL/min Low >60 [facility] Comment on above: Order Comment: 1Y Result Comment: Afri can Czech GFR Calc Performed By: #### L 501.5425, L501.5200, L500.2500, L100.0100 ####[facility] [address] [place], [address] GAP 8 Normal 5-15 [facility] Comment on above: Order Comment: 1Y Performed By: #### L 501.5425, L501.5200, L500.2500, L100.0100 ####[facility] [address] [place], [address] GFR/1.73 sq M.predicted among non-blacks MDRD (S/P/Bld) [Vol rate/Area] 45 mL/min/{1.73_m2} Low >60 [facility] Comment on above: Order Comment: 1Y Result Comment: Non- GFR Calc Performed By: #### L 501.5425, L501.5200, L500.2500, L100.0100 ####[facility] [address] [place], [address] Glucose [Mass/Vol] 118 mg/dL High 74-106 [facility] Comment on above: Order Comment: 1Y Result Comment: Fast ing Glucose result from 100 to 125 mg/dLsuggests IMPAIRED HOMEOSTASIS per A.D.A. criteria. Performed By: #### L 501.5425, L501.5200, L500.2500, L100.0100 ####[facility] [address] [place], [address] Potassium [Moles/Vol] 3.8 mmol/L Normal 3.5-5.1 [facility] Comment on above: Order Comment: 1Y Performed By: #### L 501.5425, L501.5200, L500.2500, L100.0100 ####[facility] [address] [place], [address] Sodium [Moles/Vol] 138 mmol/L Normal 136-145 [facility] Comment on above: Order Comment: 1Y Performed By: #### L 501.5425, L501.5200, L500.2500, L100.0100 ####[facility] [address] [place], [address] Urea nitrogen [Mass/Vol] 18 mg/dL Normal 7-18 [facility] Comment on above: Order Comment: 1Y Performed By: #### L 501.5425, L501.5200, L500.2500, L100.0100 ####[facility] [address] [place], [address] Brain/Head without Contrasto n 12-09-2024 Brain/Head without Contrast Normal [facility] CBC W/Diff, Automatedon - Absolute Lymph 0.84 X10 3/uL Normal 0.83-4.51 [facility] Comment on above: Performed By: #### L 501.5425, L501.5200, L500.2500, L100.0100 ####[facility] [address] [place], [address] Absolute Neut 7.9 X10 3/uL High 2.0-7.7 [facility] Comment on above: Performed By: #### L 501.5425, L501.5200, L500.2500, L100.0100 ####[facility] [address] [place], [address] Basophils/100 WBC (Bld) 0.6 % Normal 0-1 [facility] Comment on above: Performed By: #### L 501.5425, L501.5200, L500.2500, L100.0100 ####[facility] [address] [place], [address] Eosinophils/100 WBC (Bld) 1.1 % Normal 0-5 [facility] Comment on above: Performed By: #### L 501.5425, L501.5200, L500.2500, L100.0100 ####[facility] [address] [place], [address] Erythrocyte distribution width (RBC) [Ratio] 15.7 % High 11.6-14.6 [facility] Comment on above: Performed By: #### L 501.5425, L501.5200, L500.2500, L100.0100 ####[facility] [address] [place], [address] Hematocrit (Bld) [Volume fraction] 41.9 % Normal 37-47 [facility] Comment on above: Performed By: #### L 501.5425, L501.5200, L500.2500, L100.0100 ####[facility] [address] [place], [address] Hemoglobin (Bld) [Mass/Vol] 13.5 g/dL Normal 12.0-15.0 [facility] Comment on above: Performed By: #### L 501.5425, L501.5200, L500.2500, L100.0100 ####[facility] [address] [place], [address] IG% 0.600 Normal 0.0-0.9 [facility] Comment on above: Result Comment: IG% - Immature Granulocytes (promyelocytes, myelocytes andmetamyelocytes) > 1% indicates that a LEFT SHIFT is Present. Performed By: #### L 501.5425, L501.5200, L500.2500, L100.0100 ####[facility] [address] [place], [address] Lymphocytes/100 WBC (Bld) 8.7 % Low 19-41 [facility] Comment on above: Performed By: #### L 501.5425, L501.5200, L500.2500, L100.0100 ####[facility] [address] [place], [address] MCH (RBC) [Entitic mass] 27.2 pg Normal 27.0-32.0 [facility] Comment on above: Performed By: #### L 501.5425, L501.5200, L500.2500, L100.0100 ####[facility] [address] [place], [address] MCHC (RBC) [Mass/Vol] 32.2 g/dL Normal 32-36 [facility] Comment on above: Performed By: #### L 501.5425, L501.5200, L500.2500, L100.0100 ####[facility] [address] [place], [address] MCV (RBC) [Entitic vol] 84.3 fL Normal 81-99 [facility] Comment on above: Performed By: #### L 501.5425, L501.5200, L500.2500, L100.0100 ####[facility] [address] [place], [address] Monocytes/100 WBC (Bld) 6.8 % Normal 0-10 [facility] Comment on above: Performed By: #### L 501.5425, L501.5200, L500.2500, L100.0100 ####[facility] [address] [place], [address] Neutrophils/100 WBC (Bld) 82.2 % High 47-70 [facility] Comment on above: Performed By: #### L 501.5425, L501.5200, L500.2500, L100.0100 ####[facility] [address] [place], [address] Nucleated RBC (Bld) [#/Vol] 0 10*3/uL Normal 0-5 [facility] Comment on above: Performed By: #### L 501.5425, L501.5200, L500.2500, L100.0100 ####[facility] [address] [place], [address] Platelet mean volume (Bld) [Entitic vol] 10.2 fL Normal 6.2-12.0 [facility] Comment on above: Performed By: #### L 501.5425, L501.5200, L500.2500, L100.0100 ####[facility] [address] [place], [address] Platelets (Bld) [#/Vol] 191 10*3/uL Normal 150-450 [facility] Comment on above: Performed By: #### L 501.5425, L501.5200, L500.2500, L100.0100 ####[facility] [address] [place], [address] RBC (Bld) [#/Vol] 4.97 10*6/uL Normal 4.2-5.4 [facility] Comment on above: Performed By: #### L 501.5425, L501.5200, L500.2500, L100.0100 ####[facility] [address] [place], [address] RDW SD 48.3 fl High 35.1-43.9 [facility] Comment on above: Performed By: #### L 501.5425, L501.5200, L500.2500, L100.0100 ####[facility] [address] [place], [address] WBC (Bld) [#/Vol] 9.6 10*3/uL Normal 4.4-11.0 [facility] Comment on above: Performed By: #### L 501.5425, L501.5200, L500.2500, L100.0100 ####[facility] [address] [place], [address] Chest 1 View (Portable)on Chest 1 View (Portable) Normal [facility] Echo Complete W/ Contraston 12-09-2024 Echo Complete W/ Contrast Normal [facility] Emergency Department Summary on 12-09-2024 Emergency Department Summary Normal [facility] H AND P Exam - Hospitaliston 12-09-2024 H&P Exam - Hospitalist Normal [facility] L501.4020on 12-09-2024 TROPONIN-I HS 72 pg/mL High 3.0-54.0 [facility] Comment on above: Order Comment: 'TROP ' Serial specimen #1, #2 or #3: 3 Result Comment: Plea se Note: New Test Units and Gender Specific Reference Ranges. For more information see Policy Stat Procedure [place] High Sensitivity Troponin (TNIH) and attachments. Performed By: #### L 501.4020 ####[facility] [address] [place], [address] TROPONIN-I HS 74 pg/mL High 3.0-54.0 [facility] Comment on above: Result Comment: Plea se Note: New Test Units and Gender Specific Reference Ranges. For more information see Policy Stat Procedure [place] High Sensitivity Troponin (TNIH) and attachments. Performed By: #### L 501.4020 ####[facility] [address] [place], [address] L501.5425on 12-09-2024 TROPONIN-I HS 91 pg/mL High 3.0-54.0 [facility] Comment on above: Order Comment: 1Y Result Comment: Plea se Note: New Test Units and Gender Specific Reference Ranges. For more information see Policy Stat Procedure [place] High Sensitivity Troponin (TNIH) and attachments. Performed By: #### L 501.5425, L501.5200, L500.2500, L100.0100 ####[facility] [address] [place], [address] Magnesiumon 12-09-2024 Magnesium [Mass/Vol] 2.3 mg/dL Normal 1.6-2.6 [facility] Comment on above: Order Comment: 1Y Performed By: #### L 501.5425, L501.5200, L500.2500, L100.0100 ####[facility] [address] [place], [address] Magnesium measurementOrdered By: Nuno Grider on 12-09-2024 Magnesium [Mass/Vol] 2.3 mg/dL 1.6-2.6 [facility] Troponin IOrdered By: Trina Tyler on 12-09-2024 Troponin I 72 pg/mL High 3.0-54.0 [facility] 12 Lead EKGon 11-28-2024 12 Lead EKG Normal [facility] Basic Metabolic Profile (BMP )on 11-28-2024 BUN/CRE 14.9 RATIO Normal 10-20 [facility] Comment on above: Performed By: #### L 100.0100, L500.2500, L300.8000 ####[facility] [address] [place], [address] CA,Total 9.5 mg/dL Normal 8.5-10.1 [facility] Comment on above: Performed By: #### L 100.0100, L500.2500, L300.8000 ####[facility] [address] [place], [address] Chloride [Moles/Vol] 105 mmol/L Normal 98-107 [facility] Comment on above: Performed By: #### L 100.0100, L500.2500, L300.8000 ####[facility] [address] [place], [address] CO2 [Moles/Vol] 26.0 mmol/L Normal 21.0-32.0 [facility] Comment on above: Performed By: #### L 100.0100, L500.2500, L300.8000 ####[facility] [address] [place], [address] Creatinine [Mass/Vol] 1.14 mg/dL High 0.55-1.02 [facility] Comment on above: Result Comment: The validity of the calculated GFR GFRAA in patients over70 years has not been determined. Clinical correlation isessential. Performed By: #### L 100.0100, L500.2500, L300.8000 ####[facility] [address] [place], [address] ECRCL 39.22 ml/min Normal [facility] Comment on above: Performed By: #### L 100.0100, L500.2500, L300.8000 ####[facility] [address] [place], [address] EST GFR - AA 61 mL/min Normal >60 [facility] Comment on above: Result Comment: Afri can Czech GFR Calc Performed By: #### L 100.0100, L500.2500, L300.8000 ####[facility] [address] [place], [address] GAP 7 Normal 5-15 [facility] Comment on above: Performed By: #### L 100.0100, L500.2500, L300.8000 ####[facility] [address] [place], [address] GFR/1.73 sq M.predicted among non-blacks MDRD (S/P/Bld) [Vol rate/Area] 50 mL/min/{1.73_m2} Low >60 [facility] Comment on above: Result Comment: Non- GFR Calc Performed By: #### L 100.0100, L500.2500, L300.8000 ####[facility] [address] [place], [address] Glucose [Mass/Vol] 107 mg/dL High 74-106 [facility] Comment on above: Result Comment: Fast ing Glucose result from 100 to 125 mg/dLsuggests IMPAIRED HOMEOSTASIS per A.D.A. criteria. Performed By: #### L 100.0100, L500.2500, L300.8000 ####[facility] [address] [place], [address] Potassium [Moles/Vol] 3.2 mmol/L Low 3.5-5.1 [facility] Comment on above: Performed By: #### L 100.0100, L500.2500, L300.8000 ####[facility] [address] [place], [address] Sodium [Moles/Vol] 138 mmol/L Normal 136-145 [facility] Comment on above: Performed By: #### L 100.0100, L500.2500, L300.8000 ####[facility] [address] [place], [address] Urea nitrogen [Mass/Vol] 17 mg/dL Normal 7-18 [facility] Comment on above: Performed By: #### L 100.0100, L500.2500, L300.8000 ####[facility] [address] [place], [address] Brain/Head without Contrasto n 11-28-2024 Brain/Head without Contrast Normal [facility] CBC W/Diff, Automatedon - 0-2024 Absolute Lymph 2.10 X10 3/uL Normal 0.83-4.51 [facility] Comment on above: Performed By: #### L 100.0100, L500.2500, L300.8000 ####[facility] [address] [place], [address] Absolute Neut 5.8 X10 3/uL Normal 2.0-7.7 [facility] Comment on above: Performed By: #### L 100.0100, L500.2500, L300.8000 ####[facility] [address] [place], [address] Basophils/100 WBC (Bld) 0.8 % Normal 0-1 [facility] Comment on above: Performed By: #### L 100.0100, L500.2500, L300.8000 ####[facility] [address] [place], [address] Eosinophils/100 WBC (Bld) 2.3 % Normal 0-5 [facility] Comment on above: Performed By: #### L 100.0100, L500.2500, L300.8000 ####[facility] [address] [place], [address] Erythrocyte distribution width (RBC) [Ratio] 15.8 % High 11.6-14.6 [facility] Comment on above: Performed By: #### L 100.0100, L500.2500, L300.8000 ####[facility] [address] [place], [address] Hematocrit (Bld) [Volume fraction] 40.3 % Normal 37-47 [facility] Comment on above: Performed By: #### L 100.0100, L500.2500, L300.8000 ####[facility] [address] [place], [address] Hemoglobin (Bld) [Mass/Vol] 13.1 g/dL Normal 12.0-15.0 [facility] Comment on above: Performed By: #### L 100.0100, L500.2500, L300.8000 ####[facility] [address] [place], [address] IG% 0.400 Normal 0.0-0.9 [facility] Comment on above: Result Comment: IG% - Immature Granulocytes (promyelocytes, myelocytes andmetamyelocytes) > 1% indicates that a LEFT SHIFT is Present. Performed By: #### L 100.0100, L500.2500, L300.8000 ####[facility] [address] [place], [address] Lymphocytes/100 WBC (Bld) 23.0 % Normal 19-41 [facility] Comment on above: Performed By: #### L 100.0100, L500.2500, L300.8000 ####[facility] [address] [place], [address] MCH (RBC) [Entitic mass] 27.1 pg Normal 27.0-32.0 [facility] Comment on above: Performed By: #### L 100.0100, L500.2500, L300.8000 ####[facility] [address] [place], [address] MCHC (RBC) [Mass/Vol] 32.5 g/dL Normal 32-36 [facility] Comment on above: Performed By: #### L 100.0100, L500.2500, L300.8000 ####[facility] [address] [place], [address] MCV (RBC) [Entitic vol] 83.4 fL Normal 81-99 [facility] Comment on above: Performed By: #### L 100.0100, L500.2500, L300.8000 ####[facility] [address] [place], [address] Monocytes/100 WBC (Bld) 10.2 % High 0-10 [facility] Comment on above: Performed By: #### L 100.0100, L500.2500, L300.8000 ####[facility] [address] [place], [address] Neutrophils/100 WBC (Bld) 63.3 % Normal 47-70 [facility] Comment on above: Performed By: #### L 100.0100, L500.2500, L300.8000 ####[facility] [address] [place], [address] Nucleated RBC (Bld) [#/Vol] 0 10*3/uL Normal 0-5 [facility] Comment on above: Performed By: #### L 100.0100, L500.2500, L300.8000 ####[facility] [address] [place], [address] Platelet mean volume (Bld) [Entitic vol] 10.2 fL Normal 6.2-12.0 [facility] Comment on above: Performed By: #### L 100.0100, L500.2500, L300.8000 ####[facility] [address] [place], [address] Platelets (Bld) [#/Vol] 204 10*3/uL Normal 150-450 [facility] Comment on above: Performed By: #### L 100.0100, L500.2500, L300.8000 ####[facility] [address] [place], [address] RBC (Bld) [#/Vol] 4.83 10*6/uL Normal 4.2-5.4 [facility] Comment on above: Performed By: #### L 100.0100, L500.2500, L300.8000 ####[facility] [address] [place], [address] RDW SD 47.8 fl High 35.1-43.9 [facility] Comment on above: Performed By: #### L 100.0100, L500.2500, L300.8000 ####[facility] [address] [place], [address] WBC (Bld) [#/Vol] 9.1 10*3/uL Normal 4.4-11.0 [facility] Comment on above: Performed By: #### L 100.0100, L500.2500, L300.8000 ####[facility] [address] [place], [address] D-Dimer Quantitative (DVT/PE )on 11-28-2024 D-DIMER QUANT 0.40 FEU/ug/m Normal 0.27-0.49 [facility] Comment on above: Result Comment: NORM AL D-Dimer level (<0.50) indicates no DVT or PE. Performed By: #### L 100.0100, L500.2500, L300.8000 ####[facility] [address] [place], [address] Emergency Department Summary on 11-28-2024 Emergency Department Summary Normal [facility] Cardiology Visit Reporton Cardiology Visit Report Normal [facility] 36on 11-20-2024 36 Patient called in an d scheduled a follow up for 12/08/24 11:30 AM. Please be advised. Medication name: baclofen (Lioresal) 20 MG tablet Medication dosage: 20 mg (Miligrams Monthly quantity needed: 90 How many day supply requestin days Medication route: oral (PO) Medication administration time(s): take 1 tablet by mouth every 8 hours if needed muscle spasm If taking medication PRN, reason for taking medication: N/A If this is a controlled substance do you receive this or any other controlled medication from any other doctor or facility: N/A Ordering provider: Lizz Lynn Date of last office visit: 12/14/23 Date of next office visit: 12/08/24 Date of last refill: (see medication tab): 09/15/24 Updated/Validated preferred pharmacy: [id number] Patient instructed to contact the pharmacy prior to picking up the medication: Yes Normal [facility] 36 Last ov-12/14/23 Next ov- N/A Normal [facility] Pulmonary Visit Reporton Pulmonary Visit Report Normal [facility] 6 Minute Walk Teston 024 6 Minute Walk Test Normal [facility] Low Dose CT Lung Screeningon 10-03-[address] Lung Screening Normal [facility] 36on 09-15-2024 36 patient has been not ified of providers message. She will call back to schedule the appointment Normal [facility] 36 Refill for baclofen sent. Patient needs to schedule a follow up; in November it will be one year since she has last see. Normal [facility] 36 Last ov- 12/14/23 Next ov- n/a Normal [facility] Abd Aortic/IVC Duplex scanon 08-27-2024 Abd Aortic/IVC Duplex scan Normal [facility] Ankle Brachial Indexon 08-27 Ankle Brachial Index Normal [facility] Pulmonary Visit Reporton Pulmonary Visit Report Normal [facility] CBC W/Diff, Automatedon 07-21 Absolute Lymph 1.25 X10 3/uL Normal 0.83-4.51 [facility] Comment on above: Order Comment: Inter face Comments:cc copy to Dr. Nicola Hernandez Vascular SurgeonOrder Date: 08/14/24Order Info: [id number] CBCDComments: cc copy to Dr. Nicola Hernandez, Vascular Surgeon Performed By: #### L 500.4050, L100.0100, L503.6550, L503.6030 ####[facility] [address] [place], [address] Absolute Neut 4.6 X10 3/uL Normal 2.0-7.7 [facility] Comment on above: Order Comment: Inter face Comments:cc copy to Dr. Nicola Hernandez Vascular SurgeonOrder Date: 08/14/24Order Info: [id number] - CBCDComments: cc copy to Dr. Nicola Hernandez, Vascular Surgeon Performed By: #### L 500.4050, L100.0100, L503.6550, L503.6030 ####[facility] [address] [place], [address] Basophils/100 WBC (Bld) 0.7 % Normal 0-1 [facility] Comment on above: Order Comment: Inter face Comments:cc copy to Dr. Nicola Hernandez Vascular SurgeonOrder Date: 08/14/24Order Info: [id number]- - CBCDComments: cc copy to Dr. Nicola Hernandez Vascular Surgeon Performed By: #### L 500.4050, L100.0100, L503.6550, L503.6030 ####[facility] [address] [place], [address] Eosinophils/100 WBC (Bld) 5.6 % High 0-5 [facility] Comment on above: Order Comment: Inter face Comments:cc copy to Dr. Nicola Hernandez Vascular SurgeonOrder Date: 08/14/24Order Info: [id number]- - CBCDComments: cc copy to Dr. Nicola Hernandez Vascular Surgeon Performed By: #### L 500.4050, L100.0100, L503.6550, L503.6030 ####[facility] [address] [place], [address] Erythrocyte distribution width (RBC) [Ratio] 15.4 % High 11.6-14.6 [facility] Comment on above: Order Comment: Inter face Comments:cc copy to Dr. Nicola Hernandez Vascular SurgeonOrder Date: 08/14/24Order Info: [id number] - CBCDComments: cc copy to Dr. Nicola Hernandez, Vascular Surgeon Performed By: #### L 500.4050, L100.0100, L503.6550, L503.6030 ####[facility] [address] [place], [address] Hematocrit (Bld) [Volume fraction] 39.2 % Normal 37-47 [facility] Comment on above: Order Comment: Inter face Comments:cc copy to Dr. Nicola Hernandez Vascular SurgeonOrder Date: 08/14/24Order Info: [id number] - CBCDComments: cc copy to Dr. Nicola Hernandez, Vascular Surgeon Performed By: #### L 500.4050, L100.0100, L503.6550, L503.6030 ####[facility] [address] [place], [address] Hemoglobin (Bld) [Mass/Vol] 12.1 g/dL Normal 12.0-15.0 [facility] Comment on above: Order Comment: Inter face Comments:cc copy to Dr. Nicola Hernandez Vascular SurgeonOrder Date: 08/14/24Order Info: [id number] - CBCDComments: cc copy to Dr. Nicola Hernandez Vascular Surgeon Performed By: #### L 500.4050, L100.0100, L503.6550, L503.6030 ####[facility] [address] [place], [address] IG% 0.300 Normal 0.0-0.9 [facility] Comment on above: Order Comment: Inter face Comments:cc copy to Dr. Nicola Hernandez Vascular SurgeonOrder Date: 08/14/24Order Info: [id number] - CBCDComments: cc copy to Dr. Nicola Hernandez, Vascular Surgeon Result Comment: IG% - Immature Granulocytes (promyelocytes, myelocytes andmetamyelocytes) > 1% indicates that a LEFT SHIFT is Present. Performed By: #### L 500.4050, L100.0100, L503.6550, L503.6030 ####[facility] [address] [place], [address] Lymphocytes/100 WBC (Bld) 17.8 % Low 19-41 [facility] Comment on above: Order Comment: Inter face Comments:cc copy to Dr. Nicola Hernandez Vascular SurgeonOrder Date: 08/14/24Order Info: [id number] - CBCDComments: cc copy to Dr. Nicola Hernandez, Vascular Surgeon Performed By: #### L 500.4050, L100.0100, L503.6550, L503.6030 ####[facility] [address] [place], [address] MCH (RBC) [Entitic mass] 27.9 pg Normal 27.0-32.0 [facility] Comment on above: Order Comment: Inter face Comments:cc copy to Dr. iNcola Hernandez Vascular SurgeonOrder Date: 08/14/24Order Info: [id number] - CBCDComments: cc copy to Dr. Nicola Hernandez Vascular Surgeon Performed By: #### L 500.4050, L100.0100, L503.6550, L503.6030 ####[facility] [address] [place], [address] MCHC (RBC) [Mass/Vol] 30.9 g/dL Low 32-36 [facility] Comment on above: Order Comment: Inter face Comments:cc copy to Dr. Nicola Hernandez Vascular SurgeonOrder Date: 08/14/24Order Info: [id number] - CBCDComments: cc copy to Dr. Nicola Hernandez, Vascular Surgeon Performed By: #### L 500.4050, L100.0100, L503.6550, L503.6030 ####[facility] [address] [place], [address] MCV (RBC) [Entitic vol] 90.5 fL Normal 81-99 [facility] Comment on above: Order Comment: Inter face Comments:cc copy to Dr. Nicola Hernandez Vascular SurgeonOrder Date: 08/14/24Order Info: [id number] - CBCDComments: cc copy to Dr. Nicola Hernandez, Vascular Surgeon Performed By: #### L 500.4050, L100.0100, L503.6550, L503.6030 ####[facility] [address] [place], [address] Monocytes/100 WBC (Bld) 9.4 % Normal 0-10 [facility] Comment on above: Order Comment: Inter face Comments:cc copy to Dr. Nicola Hernandez Vascular SurgeonOrder Date: 08/14/24Order Info: [id number] - CBCDComments: cc copy to Dr. Nicola Hernandez, Vascular Surgeon Performed By: #### L 500.4050, L100.0100, L503.6550, L503.6030 ####[facility] [address] [place], [address] Neutrophils/100 WBC (Bld) 66.2 % Normal 47-70 [facility] Comment on above: Order Comment: Inter face Comments:cc copy to Dr. Nicola Hernandez Vascular SurgeonOrder Date: 08/14/24Order Info: [id number] - CBCDComments: cc copy to Dr. Nicola Hernandez Vascular Surgeon Performed By: #### L 500.4050, L100.0100, L503.6550, L503.6030 ####[facility] [address] [place], [address] Nucleated RBC (Bld) [#/Vol] 0 10*3/uL Normal 0-5 [facility] Comment on above: Order Comment: Inter face Comments:cc copy to Dr. Nicola Hernandez Vascular SurgeonOrder Date: 08/14/24Order Info: [id number]- - CBCDComments: cc copy to Dr. Nicola Hernandez, Vascular Surgeon Performed By: #### L 500.4050, L100.0100, L503.6550, L503.6030 ####[facility] [address] [place], [address] Platelet mean volume (Bld) [Entitic vol] 10.9 fL Normal 6.2-12.0 [facility] Comment on above: Order Comment: Inter face Comments:cc copy to Dr. Nicola Hernandez, Vascular SurgeonOrder Date: 08/14/24Order Info: [id number] - CBCDComments: cc copy to Dr. Nicola Hernandez, Vascular Surgeon Performed By: #### L 500.4050, L100.0100, L503.6550, L503.6030 ####[facility] [address] [place], [address] Platelets (Bld) [#/Vol] 160 10*3/uL Normal 150-450 [facility] Comment on above: Order Comment: Inter face Comments:cc copy to Dr. Nicola Hernandez Vascular SurgeonOrder Date: 08/14/24Order Info: 018- - CBCDComments: cc copy to Dr. Nicola Hernandez, Vascular Surgeon Performed By: #### L 500.4050, L100.0100, L503.6550, L503.6030 ####[facility] [address] [place], [address] RBC (Bld) [#/Vol] 4.33 10*6/uL Normal 4.2-5.4 [facility] Comment on above: Order Comment: Inter face Comments:cc copy to Dr. Nicola Hernandez Vascular SurgeonOrder Date: 08/14/24Order Info: 018- - CBCDComments: cc copy to Dr. Nicola Hernandez, Vascular Surgeon Performed By: #### L 500.4050, L100.0100, L503.6550, L503.6030 ####[facility] [address] [place], [address] RDW SD 51.4 fl High 35.1-43.9 [facility] Comment on above: Order Comment: Inter face Comments:cc copy to Dr. Nicola Hernandez Vascular SurgeonOrder Date: 08/14/24Order Info: [id number] - CBCDComments: cc copy to Dr. Nicola Hernandez Vascular Surgeon Performed By: #### L 500.4050, L100.0100, L503.6550, L503.6030 ####[facility] [address] [place], [address] WBC (Bld) [#/Vol] 7.0 10*3/uL Normal 4.4-11.0 [facility] Comment on above: Order Comment: Inter face Comments:cc copy to Dr. Nicola Hernandez Vascular SurgeonOrder Date: 08/14/24Order Info: [id number] - CBCDComments: cc copy to Dr. Nicola Hernandez Vascular Surgeon Performed By: #### L 500.4050, L100.0100, L503.6550, L503.6030 ####[facility] [address] [place], [address] Comprehensive Metabolic Prof ilon 08-14-2024 Albumin [Mass/Vol] 3.3 g/dL Normal 3.2-5.0 [facility] Comment on above: Order Comment: Inter face Comments:cc copy to Dr. Nicola Hernandez Vascular SurgeonOrder Date: 08/14/24Order Info: [id number] - CMPOrder Info: [id number] - TSHOrder Info: [id number] - IBCOrder Info: [id number] - FERComments: cc copy to Dr. Nicola Hernandez Vascular SurgeonOrder Info: 3024-7 - T4Fcc copy to Dr. Nicola Hernandez Vascular Surgeon Performed By: #### L 500.4050, L100.0100, L503.6550, L503.6030 ####[facility] [address] [place], [address] Albumin/Globulin [Mass ratio] 1.0 {ratio} Normal 0.9-2.4 [facility] Comment on above: Order Comment: Inter face Comments:cc copy to Dr. Nicola Hernandez Vascular SurgeonOrder Date: 08/14/24Order Info: 785- - CMPOrder Info: 3 - TSHOrder Info: [id number] - IBCOrder Info: [id number] - FERComments: cc copy to Dr. Nicola Hernandez Vascular SurgeonOrder Info: [id number] - T4Fcc copy to Dr. Nicola Hernandez, Vascular Surgeon Performed By: #### L 500.4050, L100.0100, L503.6550, L503.6030 ####[facility] [address] [place], [address] ALK P 128 U/L High 45-117 [facility] Comment on above: Order Comment: Inter face Comments:cc copy to Dr. Nicola Hernandez Vascular SurgeonOrder Date: 08/14/24Order Info: [id number] - CMPOrder Info: [id number] - TSHOrder Info: [id number] - IBCOrder Info: [id number] - FERComments: cc copy to Dr. Nicola Hernandez Vascular SurgeonOrder Info: 3024-[address] Nicola Hernandez, Vascular Surgeon Performed By: #### L 500.4050, L100.0100, L503.6550, L503.6030 ####[facility] [address] [place], [address] ALT [Catalytic activity/Vol] 14 U/L Normal 13-56 [facility] Comment on above: Order Comment: Inter face Comments:cc copy to Dr. Nicola Hernandez Vascular SurgeonOrder Date: 08/14/24Order Info: [id number] - CMPOrder Info: [id number] - TSHOrder Info: [id number] - IBCOrder Info: [id number] - FERComments: cc copy to Dr. Nicola Hernandez Vascular SurgeonOrder Info: 3027 - T4Fcc copy to Dr. Nicola Hernandez, Vascular Surgeon Performed By: #### L 500.4050, L100.0100, L503.6550, L503.6030 ####[facility] [address] [place], [address] AST [Catalytic activity/Vol] 12 U/L Low 15-37 [facility] Comment on above: Order Comment: Inter face Comments:cc copy to Dr. Nicola Hernandez Vascular SurgeonOrder Date: 08/14/24Order Info: [id number] - CMPOrder Info: [id number] - TSHOrder Info: [id number] - IBCOrder Info: [id number] - FERComments: cc copy to Dr. Nicola Hernandez, Vascular SurgeonOrder Info: [id number] - T4Fcc copy to Dr. Nicola Hernandez, Vascular Surgeon Performed By: #### L 500.4050, L100.0100, L503.6550, L503.6030 ####[facility] [address] [place], [address] Bilirubin [Mass/Vol] 0.30 mg/dL Normal 0.20-1.00 [facility] Comment on above: Order Comment: Inter face Comments:cc copy to Dr. Nicola Hernandez Vascular SurgeonOrder Date: 08/14/24Order Info: 785-1 - CMPOrder Info: 3 - TSHOrder Info: [id number] - IBCOrder Info: [id number] - FERComments: cc copy to Dr. Nicola Hernandez Vascular SurgeonOrder Info: [id number] - T4Fcc copy to Dr. Nicola Hernandez, Vascular Surgeon Result Comment: For patients on eltrombopag therapy, use of Dimension [place] TBIL is not recommended. Performed By: #### L 500.4050, L100.0100, L503.6550, L503.6030 ####[facility] [address] [place], [address] BUN/CRE 14.5 RATIO Normal 10-20 [facility] Comment on above: Order Comment: Inter face Comments:cc copy to Dr. Nicola Hernandez Vascular SurgeonOrder Date: 08/14/24Order Info: [id number] - CMPOrder Info: [id number] - TSHOrder Info: [id number] - IBCOrder Info: [id number] - FERComments: cc copy to Dr. Nicola Hernandez Vascular SurgeonOrder Info: 3024-05 - T4Fcc copy to Dr. Nicola Hernandez, Vascular Surgeon Performed By: #### L 500.4050, L100.0100, L503.6550, L503.6030 ####[facility] [address] [place], [address] CA,Total 9.3 mg/dL Normal 8.5-10.1 [facility] Comment on above: Order Comment: Inter face Comments:cc copy to Dr. Nicola Hernandez Vascular SurgeonOrder Date: 08/14/24Order Info: 0786-1 - CMPOrder Info: [id number] - TSHOrder Info: [id number] - IBCOrder Info: [id number] - FERComments: cc copy to Dr. Nicola Hernandez Vascular SurgeonOrder Info: 3024-[address] Nicola Hernandez, Vascular Surgeon Performed By: #### L 500.4050, L100.0100, L503.6550, L503.6030 ####[facility] [address], [address] Chloride [Moles/Vol] 107 mmol/L Normal 98-107 [facility] Comment on above: Order Comment: Inter face Comments:cc copy to Dr. Nicola Hernandez Vascular SurgeonOrder Date: 08/14/24Order Info: 0786- - CMPOrder Info: [id number] - TSHOrder Info: [id number] - IBCOrder Info: [id number] - FERComments: cc copy to Dr. Nicola Hernandez Vascular SurgeonOrder Info: 3024-05 - T4Fcc copy to Dr. Nicola Hrenandez, Vascular Surgeon Performed By: #### L 500.4050, L100.0100, L503.6550, L503.6030 ####[facility] [address], [address] CO2 [Moles/Vol] 28.0 mmol/L Normal 21.0-32.0 [facility] Comment on above: Order Comment: Inter face Comments:cc copy to Dr. Nicola Hernandez Vascular SurgeonOrder Date: 08/14/24Order Info: 07-1 - CMPOrder Info: [id number] - TSHOrder Info: [id number] - IBCOrder Info: [id number] - FERComments: cc copy to Dr. Nicola Hernandez Vascular SurgeonOrder Info: 3027 - T4Fcc copy to Dr. Nicola Hernandez Vascular Surgeon Performed By: #### L 500.4050, L100.0100, L503.6550, L503.6030 ####[facility] [address] [place], [address] Creatinine [Mass/Vol] 1.10 mg/dL High 0.55-1.02 [facility] Comment on above: Order Comment: Inter face Comments:cc copy to Dr. Nicola Hernandez Vascular SurgeonOrder Date: 08/14/24Order Info: [id number] - CMPOrder Info: 3 - TSHOrder Info: [id number] - IBCOrder Info: [id number] - FERComments: cc copy to Dr. Nicola Hernandez Vascular SurgeonOrder Info: 3024-05 - T4Fcc copy to Dr. Nicola Hernandez, Vascular Surgeon Result Comment: The validity of the calculated GFR GFRAA in patients over70 years has not been determined. Clinical correlation isessential. Performed By: #### L 500.4050, L100.0100, L503.6550, L503.6030 ####[facility] [address] [place], [address] EST GFR - AA 63 mL/min Normal >60 [facility] Comment on above: Order Comment: Inter face Comments:cc copy to Dr. Nicola Hernandez Vascular SurgeonOrder Date: 08/14/24Order Info: 07-1 - CMPOrder Info: 3 - TSHOrder Info: [id number] - IBCOrder Info: [id number] - FERComments: cc copy to Dr. Nicola Hernandez Vascular SurgeonOrder Info: 3027 - T4Fcc copy to Dr. Nicola Hernandez, Vascular Surgeon Result Comment: Afri can Czech GFR Calc Performed By: #### L 500.4050, L100.0100, L503.6550, L503.6030 ####[facility] [address] [place], [address] GAP 5 Normal 5-15 [facility] Comment on above: Order Comment: Inter face Comments:cc copy to Dr. Nicola Hernandez Vascular SurgeonOrder Date: 08/14/24Order Info: [id number] - CMPOrder Info: 3 - TSHOrder Info: [id number] - IBCOrder Info: [id number] - FERComments: cc copy to Dr. Nicola Hernandez Vascular SurgeonOrder Info: [id number] - T4Fcc copy to Dr. Nicola Hernandez, Vascular Surgeon Performed By: #### L 500.4050, L100.0100, L503.6550, L503.6030 ####[facility] [address] [place], [address] GFR/1.73 sq M.predicted among non-blacks MDRD (S/P/Bld) [Vol rate/Area] 52 mL/min/{1.73_m2} Low >60 [facility] Comment on above: Order Comment: Inter face Comments:cc copy to Dr. Nicola Hernandez Vascular SurgeonOrder Date: 08/14/24Order Info: 0786-1 - CMPOrder Info: 3 - TSHOrder Info: [id number] - IBCOrder Info: [id number] - FERComments: cc copy to Dr. Nicola Hernandez, Vascular SurgeonOrder Info: 3024-7 - T4Fcc copy to Dr. Nicola Hernandez, Vascular Surgeon Result Comment: Non- GFR Calc Performed By: #### L 500.4050, L100.0100, L503.6550, L503.6030 ####[facility] [address] [place], [address] Globulin (S) [Mass/Vol] 3.4 g/dL Normal 2.2-4.2 [facility] Comment on above: Order Comment: Inter face Comments:cc copy to Dr. Nicola Hernandez Vascular SurgeonOrder Date: 08/14/24Order Info: 07-1 - CMPOrder Info: 3 - TSHOrder Info: [id number] - IBCOrder Info: [id number] - FERComments: cc copy to Dr. Nicola Hernandez Vascular SurgeonOrder Info: 3027 - T4Fcc copy to Dr. Nicola Hernandez Vascular Surgeon Performed By: #### L 500.4050, L100.0100, L503.6550, L503.6030 ####[facility] [address] [place], [address] Glucose [Mass/Vol] 82 mg/dL Normal 74-106 [facility] Comment on above: Order Comment: Inter face Comments:cc copy to Dr. Nicola Hernandez Vascular SurgeonOrder Date: 08/14/24Order Info: 785-11 - CMPOrder Info: [id number] - TSHOrder Info: [id number] - IBCOrder Info: [id number] - FERComments: cc copy to Dr. Nicola Hernandez Vascular SurgeonOrder Info: 3024-05 - T4Fcc copy to Dr. Nicola Hernandez, Vascular Surgeon Performed By: #### L 500.4050, L100.0100, L503.6550, L503.6030 ####[facility] [address] [place], [address] Potassium [Moles/Vol] 4.0 mmol/L Normal 3.5-5.1 [facility] Comment on above: Order Comment: Inter face Comments:cc copy to Dr. Nicola Hernandez Vascular SurgeonOrder Date: 08/14/24Order Info: 785-1 - CMPOrder Info: 3 - TSHOrder Info: [id number] - IBCOrder Info: [id number] - FERComments: cc copy to Dr. Nicola Hernandez Vascular SurgeonOrder Info: 3027 - T4Fcc copy to Dr. Nicola Hernandez, Vascular Surgeon Performed By: #### L 500.4050, L100.0100, L503.6550, L503.6030 ####[facility] [address] [place], [address] Sodium [Moles/Vol] 140 mmol/L Normal 136-145 [facility] Comment on above: Order Comment: Inter face Comments:cc copy to Dr. Nicola Hernandez Vascular SurgeonOrder Date: 08/14/24Order Info: 0786-1 - CMPOrder Info: [id number] - TSHOrder Info: [id number] - IBCOrder Info: [id number] - FERComments: cc copy to Dr. Nicola Hernandez Vascular SurgeonOrder Info: 3024-7 - T4Fcc copy to Dr. Nicola Hernandez, Vascular Surgeon Performed By: #### L 500.4050, L100.0100, L503.6550, L503.6030 ####[facility] [address] [place], [address] T PROT 6.7 g/dL Normal 6.4-8.2 [facility] Comment on above: Order Comment: Inter face Comments:cc copy to Dr. Nicola Hernandez Vascular SurgeonOrder Date: 08/14/24Order Info: 0786-1 - CMPOrder Info: [id number] - TSHOrder Info: [id number] - IBCOrder Info: [id number] - FERComments: cc copy to Dr. Nicola Hernandez Vascular SurgeonOrder Info: 3024-7 - T4Fcc copy to Dr. Nicola Hernandez, Vascular Surgeon Performed By: #### L 500.4050, L100.0100, L503.6550, L503.6030 ####[facility] [address] [place], [address] Urea nitrogen [Mass/Vol] 16 mg/dL Normal 7-18 [facility] Comment on above: Order Comment: Inter face Comments:cc copy to Dr. Nicola Hernandez Vascular SurgeonOrder Date: 08/14/24Order Info: 0786-1 - CMPOrder Info: 6-3 - TSHOrder Info: [id number] - IBCOrder Info: [id number] - FERComments: cc copy to Dr. Nicola Hernandez Vascular SurgeonOrder Info: 3024-7 - T4Fcc copy to Dr. Nicola Hernandez Vascular Surgeon Performed By: #### L 500.4050, L100.0100, L503.6550, L503.6030 ####[facility] [address] [place], [address] Ferritinon 08-14-2024 Ferritin [Mass/Vol] 35 ng/mL Normal 8-252 [facility] Comment on above: Order Comment: Inter face Comments:cc copy to Dr. Nicola Hernandez Vascular SurgeonOrder Date: 08/14/24Order Info: 0786-1 - CMPOrder Info: [id number] - TSHOrder Info: [id number] - IBCOrder Info: [id number] - FERComments: cc copy to Dr. Nicola Hernandez Vascular SurgeonOrder Info: 3027 - T4Fcc copy to Dr. Nicola Hernandez Vascular Surgeon Performed By: #### L 500.4050, L100.0100, L503.6550, L503.6030 ####[facility] [address] [place], [address] Iron+Iron Binding Capacityon 08-14-2024 Iron [Mass/Vol] 31 ug/dL Low 50-170 [facility] Comment on above: Order Comment: Inter face Comments:cc copy to Dr. Nicola Hernandez Vascular SurgeonOrder Date: 08/14/24Order Info: 0786-1 - CMPOrder Info: 3 - TSHOrder Info: [id number] - IBCOrder Info: [id number] - FERComments: cc copy to Dr. Nicola Hernandez Vascular SurgeonOrder Info: [id number] - T4Fcc copy to Dr. Nicola Hernandez Vascular Surgeon Performed By: #### L 500.4050, L100.0100, L503.6550, L503.6030 ####[facility] [address] [place], [address] IRON SATURATION 9.1 Low 15.0-55.0 [facility] Comment on above: Order Comment: Inter face Comments:cc copy to Dr. Nicola Hernandez Vascular SurgeonOrder Date: 08/14/24Order Info: 0786-1 - CMPOrder Info: 3 - TSHOrder Info: [id number] - IBCOrder Info: [id number] - FERComments: cc copy to Dr. Nicola Hernandez Vascular SurgeonOrder Info: 3024-05 - T4Fcc copy to Dr. Nicola Hernandez Vascular Surgeon Performed By: #### L 500.4050, L100.0100, L503.6550, L503.6030 ####[facility] [address] [place], [address] TIBC 339 ug/dL Normal 250-450 [facility] Comment on above: Order Comment: Inter face Comments:cc copy to Dr. Nicola Hernandez Vascular SurgeonOrder Date: 08/14/24Order Info: [id number] - CMPOrder Info: 3 - TSHOrder Info: [id number] - IBCOrder Info: [id number] - FERComments: cc copy to Dr. Nicola Hernandez Vascular SurgeonOrder Info: 3024-05 - T4Fcc copy to Dr. Nicola Hernandez, Vascular Surgeon Performed By: #### L 500.4050, L100.0100, L503.6550, L503.6030 ####[facility] [address] [place], [address] T4 Free Directon 08-14-2024 T4 FREE DIRECT 1.18 ng/dL Normal 0.76-1.46 [facility] Comment on above: Order Comment: Inter face Comments:cc copy to Dr. Nicola Hernandez Vascular SurgeonOrder Date: 08/14/24Order Info: 785-1 - CMPOrder Info: 3 - TSHOrder Info: [id number] - IBCOrder Info: [id number] - FERComments: cc copy to Dr. Nicola Hernandez Vascular SurgeonOrder Info: 3024-05 - T4Fcc copy to Dr. Nicola Hernandez Vascular Surgeon Performed By: #### L 501.9520, L506.0400 ####[facility] [facility] [address] [place], [place], [address] Thyroid Stim Hormone (TSH)on 08-14-2024 TSH 1.650 uIU/mL Normal 0.358-3.74 0 [facility] Comment on above: Order Comment: Inter face Comments:cc copy to Dr. Nicola Hernandez, Vascular SurgeonOrder Date: 08/14/24Order Info: [id number] - CMPOrder Info: [id number] - TSHOrder Info: [id number] - IBCOrder Info: [id number] - FERComments: cc copy to Dr. Nicola Hernandez, Vascular SurgeonOrder Info: [id number] - T4Fcc copy to Dr. Nicola Hernandez, Vascular Surgeon Performed By: #### L 501.9520, L506.0400 ####[facility] [address] [place], [address] Celiac Disease Profileon ENDOMYSIAL IGA Negative Normal Negative [facility] Comment on above: Order Comment: N Performed By: #### L 100.0100, L3410.2400, L503.6075, L503.6150, L100.9950, L3100.1850, L503.6550, L3100.3425, L504.2610 ####[facility] [address] [place], [place], [id number] tTG IGA <2 Normal 0-3 [facility] Comment on above: Order Comment: N Result Comment: Nega tive 0 - 3 Weak Positive 4 - 10 Positive >10 Tissue Transglutaminase (tTG) has been identified as the endomysial antigen. Studies have demonstr- ated that endomysial IgA antibodies have over 99% specificity for gluten sensitive enteropathy. Performed By: #### L 100.0100, L3410.2400, L503.6075, L503.6150, L100.9950, L3100.1850, L503.6550, L3100.3425, L504.2610 ####[facility] [address] [place], [address] Haptoglobinon 06-23-2024 HAPTOGLOBIN 243 mg/dL Normal 37-355 [facility] Comment on above: Order Comment: N Result Comment: Perf ormed at: CB - [facility] [address] [place], [place] [id number] Director: Damion Richards PhD, Phone: [phone] Performed By: #### L 100.0100, L3410.2400, L503.6075, L503.6150, L100.9950, L3100.1850, L503.6550, L3100.3425, L504.2610 ####[facility] [address] [place], [place], [id number] CHRISTIANO + Protein Elect, Serumon 06-23-2024 Albumin [Mass/Vol] 3.4 g/dL Normal 2.9-4.4 [facility] Comment on above: Order Comment: N Performed By: #### L 100.0100, L3410.2400, L503.6075, L503.6150, L100.9950, L3100.1850, L503.6550, L3100.3425, L504.2610 ####[facility] [address] [place], [place], [phone] Albumin/Globulin [Mass ratio] 1.4 {ratio} Normal 0.7-1.7 [facility] Comment on above: Order Comment: N Performed By: #### L 100.0100, L3410.2400, L503.6075, L503.6150, L100.9950, L3100.1850, L503.6550, L3100.3425, L504.2610 ####[facility] [address] [place], [address] UYXWK-8-EARW 0.2 g/dL Normal 0.0-0.4 [facility] Comment on above: Order Comment: N Performed By: #### L 100.0100, L3410.2400, L503.6075, L503.6150, L100.9950, L3100.1850, L503.6550, L3100.3425, L504.2610 ####[facility] [address] [place], [address] LGVVU-7-OUDL 0.8 g/dL Normal 0.4-1.0 [facility] Comment on above: Order Comment: N Performed By: #### L 100.0100, L3410.2400, L503.6075, L503.6150, L100.9950, L3100.1850, L503.6550, L3100.3425, L504.2610 ####[facility] [address] [place], [address] BETA GLOBULIN 0.9 g/dL Normal 0.7-1.3 [facility] Comment on above: Order Comment: N Performed By: #### L 100.0100, L3410.2400, L503.6075, L503.6150, L100.9950, L3100.1850, L503.6550, L3100.3425, L504.2610 ####[facility] [address] [place], [place], [phone]) GAMMA GLOBULIN 0.7 g/dL Normal 0.4-1.8 [facility] Comment on above: Order Comment: N Performed By: #### L 100.0100, L3410.2400, L503.6075, L503.6150, L100.9950, L3100.1850, L503.6550, L3100.3425, L504.2610 ####[facility] [address] [place], [address] Globulin (S) [Mass/Vol] 2.6 g/dL Normal 2.2-3.9 [facility] Comment on above: Order Comment: N Performed By: #### L 100.0100, L3410.2400, L503.6075, L503.6150, L100.9950, L3100.1850, L503.6550, L3100.3425, L504.2610 ####[facility] [address] [place], [address] CHRISTIANO RESULT,S Comment Normal . [facility] Comment on above: Order Comment: N Result Comment: No m onoclonality detected. Performed By: #### L 100.0100, L3410.2400, L503.6075, L503.6150, L100.9950, L3100.1850, L503.6550, L3100.3425, L504.2610 ####[facility] [address] [place], [address] IMMUNOGLOB A QN 135 mg/dL Normal 87-352 [facility] Comment on above: Order Comment: N Performed By: #### L 100.0100, L3410.2400, L503.6075, L503.6150, L100.9950, L3100.1850, L503.6550, L3100.3425, L504.2610 ####[facility] [address] [place], [address] IMMUNOGLOB G QN 775 mg/dL Normal 586-1602 [facility] Comment on above: Order Comment: N Performed By: #### L 100.0100, L3410.2400, L503.6075, L503.6150, L100.9950, L3100.1850, L503.6550, L3100.3425, L504.2610 ####[facility] [address] [place], [address] IMMUNOGLOB M QN 98 mg/dL Normal 26-217 [facility] Comment on above: Order Comment: N Performed By: #### L 100.0100, L3410.2400, L503.6075, L503.6150, L100.9950, L3100.1850, L503.6550, L3100.3425, L504.2610 ####[facility] [address] [place], [place], [phone] M-Isaac Not Observed Normal Not Observed [facility] Comment on above: Order Comment: N Performed By: #### L 100.0100, L3410.2400, L503.6075, L503.6150, L100.9950, L3100.1850, L503.6550, L3100.3425, L504.2610 ####[facility] [address] [place], [place], [phone] NOTE: Comment Normal . [facility] Comment on above: Order Comment: N Result Comment: Prot ein electrophoresis scan will follow via computer,mail, or operations and maintenance manager delivery. Performed By: #### L 100.0100, L3410.2400, L503.6075, L503.6150, L100.9950, L3100.1850, L503.6550, L3100.3425, L504.2610 ####[facility] [address] [place], [place], [phone] Protein [Mass/Vol] 6.0 g/dL Normal 6.0-8.5 [facility] Comment on above: Order Comment: N Performed By: #### L 100.0100, L3410.2400, L503.6075, L503.6150, L100.9950, L3100.1850, L503.6550, L3100.3425, L504.2610 ####[facility] [address] [place], [place], [phone] CBC W/Diff, Automatedon 08-0 -2023 Absolute Lymph 1.20 X10 3/uL Normal 0.83-4.51 [facility] Comment on above: Performed By: #### L 100.0100, L3410.2400, L503.6075, L503.6150, L100.9950, L3100.1850, L503.6550, L3100.3425, L504.2610 ####[facility] [address] [place], [address] Absolute Neut 4.1 X10 3/uL Normal 2.0-7.7 [facility] Comment on above: Performed By: #### L 100.0100, L3410.2400, L503.6075, L503.6150, L100.9950, L3100.1850, L503.6550, L3100.3425, L504.2610 ####[facility] [address] [place], [address] Basophils/100 WBC (Bld) 0.6 % Normal 0-1 [facility] Comment on above: Performed By: #### L 100.0100, L3410.2400, L503.6075, L503.6150, L100.9950, L3100.1850, L503.6550, L3100.3425, L504.2610 ####[facility] [address] [place], [place], [phone] Eosinophils/100 WBC (Bld) 3.7 % Normal 0-5 [facility] Comment on above: Performed By: #### L 100.0100, L3410.2400, L503.6075, L503.6150, L100.9950, L3100.1850, L503.6550, L3100.3425, L504.2610 ####[facility] [address] [place], [place], [phone]84) Erythrocyte distribution width (RBC) [Ratio] 16.5 % High 11.6-14.6 [facility] Comment on above: Performed By: #### L 100.0100, L3410.2400, L503.6075, L503.6150, L100.9950, L3100.1850, L503.6550, L3100.3425, L504.2610 ####[facility] [address] [place], [address] Hematocrit (Bld) [Volume fraction] 36.8 % Low 37-47 [facility] Comment on above: Performed By: #### L 100.0100, L3410.2400, L503.6075, L503.6150, L100.9950, L3100.1850, L503.6550, L3100.3425, L504.2610 ####[facility] [address] [place], [place], [phone]) Hemoglobin (Bld) [Mass/Vol] 11.8 g/dL Low 12.0-15.0 [facility] Comment on above: Performed By: #### L 100.0100, L3410.2400, L503.6075, L503.6150, L100.9950, L3100.1850, L503.6550, L3100.3425, L504.2610 ####[facility] [address] [place], [address] IG% 0.500 Normal 0.0-0.9 [facility] Comment on above: Result Comment: IG% - Immature Granulocytes (promyelocytes, myelocytes andmetamyelocytes) > 1% indicates that a LEFT SHIFT is Present. Performed By: #### L 100.0100, L3410.2400, L503.6075, L503.6150, L100.9950, L3100.1850, L503.6550, L3100.3425, L504.2610 ####[facility] [address] [place], [place], [phone] Lymphocytes/100 WBC (Bld) 19.3 % Normal 19-41 [facility] Comment on above: Performed By: #### L 100.0100, L3410.2400, L503.6075, L503.6150, L100.9950, L3100.1850, L503.6550, L3100.3425, L504.2610 ####[facility] [address] [place], [address] MCH (RBC) [Entitic mass] 27.4 pg Normal 27.0-32.0 [facility] Comment on above: Performed By: #### L 100.0100, L3410.2400, L503.6075, L503.6150, L100.9950, L3100.1850, L503.6550, L3100.3425, L504.2610 ####[facility] [address] [place], [address] MCHC (RBC) [Mass/Vol] 32.1 g/dL Normal 32-36 [facility] Comment on above: Performed By: #### L 100.0100, L3410.2400, L503.6075, L503.6150, L100.9950, L3100.1850, L503.6550, L3100.3425, L504.2610 ####[facility] [address] [place], [address] MCV (RBC) [Entitic vol] 85.6 fL Normal 81-99 [facility] Comment on above: Performed By: #### L 100.0100, L3410.2400, L503.6075, L503.6150, L100.9950, L3100.1850, L503.6550, L3100.3425, L504.2610 ####[facility] [address] [place], [address] Monocytes/100 WBC (Bld) 9.8 % Normal 0-10 [facility] Comment on above: Performed By: #### L 100.0100, L3410.2400, L503.6075, L503.6150, L100.9950, L3100.1850, L503.6550, L3100.3425, L504.2610 ####[facility] [address] [place], [address] Neutrophils/100 WBC (Bld) 66.1 % Normal 47-70 [facility] Comment on above: Performed By: #### L 100.0100, L3410.2400, L503.6075, L503.6150, L100.9950, L3100.1850, L503.6550, L3100.3425, L504.2610 ####[facility] [address] [place], [address] Nucleated RBC (Bld) [#/Vol] 0 10*3/uL Normal 0-5 [facility] Comment on above: Performed By: #### L 100.0100, L3410.2400, L503.6075, L503.6150, L100.9950, L3100.1850, L503.6550, L3100.3425, L504.2610 ####[facility] [address] [place], [address] Platelet mean volume (Bld) [Entitic vol] 9.4 fL Normal 6.2-12.0 [facility] Comment on above: Performed By: #### L 100.0100, L3410.2400, L503.6075, L503.6150, L100.9950, L3100.1850, L503.6550, L3100.3425, L504.2610 ####[facility] [address] [place], [address] Platelets (Bld) [#/Vol] 154 10*3/uL Normal 150-450 [facility] Comment on above: Performed By: #### L 100.0100, L3410.2400, L503.6075, L503.6150, L100.9950, L3100.1850, L503.6550, L3100.3425, L504.2610 ####[facility] [address] [place], [address] RBC (Bld) [#/Vol] 4.30 10*6/uL Normal 4.2-5.4 [facility] Comment on above: Performed By: #### L 100.0100, L3410.2400, L503.6075, L503.6150, L100.9950, L3100.1850, L503.6550, L3100.3425, L504.2610 ####[facility] [address] [place], [address] RDW SD 51.3 fl High 35.1-43.9 [facility] Comment on above: Performed By: #### L 100.0100, L3410.2400, L503.6075, L503.6150, L100.9950, L3100.1850, L503.6550, L3100.3425, L504.2610 ####[facility] [address] [place], [address] WBC (Bld) [#/Vol] 6.2 10*3/uL Normal 4.4-11.0 [facility] Comment on above: Performed By: #### L 100.0100, L3410.2400, L503.6075, L503.6150, L100.9950, L3100.1850, L503.6550, L3100.3425, L504.2610 ####[facility] [address] [place], [address] Ferritinon 06-19-2024 Ferritin [Mass/Vol] 24 ng/mL Normal 8-252 [facility] Comment on above: Order Comment: 1 Performed By: #### L 100.0100, L3410.2400, L503.6075, L503.6150, L100.9950, L3100.1850, L503.6550, L3100.3425, L504.2610 ####[facility] [address] [place], [address] Gastroenterology Visit Repor ton 06-19-2024 Gastroenterology Visit Report Normal [facility] Ironon 06-19-2024 Iron [Mass/Vol] 44 ug/dL Low 50-170 [facility] Comment on above: Order Comment: 1 Performed By: #### L 100.0100, L3410.2400, L503.6075, L503.6150, L100.9950, L3100.1850, L503.6550, L3100.3425, L504.2610 ####[facility] [address] [place], [address] Iron Binding Capacity,Totalo n 06-19-2024 TIBC 317 ug/dL Normal 250-450 [facility] Comment on above: Order Comment: 1 Performed By: #### L 100.0100, L3410.2400, L503.6075, L503.6150, L100.9950, L3100.1850, L503.6550, L3100.3425, L504.2610 ####[facility] [address] [place], [address] LDHon 06-19-2024 LDH 193 U/L Normal 84-246 [facility] Comment on above: Order Comment: 1 Performed By: #### L 100.0100, L3410.2400, L503.6075, L503.6150, L100.9950, L3100.1850, L503.6550, L3100.3425, L504.2610 ####[facility] [address] [place], [address] Retic Panelon 06-19-2024 IM RET FRACTION 6.60 Normal 3.00-15.90 [facility] Comment on above: Performed By: #### L 100.0100, L3410.2400, L503.6075, L503.6150, L100.9950, L3100.1850, L503.6550, L3100.3425, L504.2610 ####[facility] [address] [place], [address] RET-HE 27.8 pg Low 30-35 [facility] Comment on above: Performed By: #### L 100.0100, L3410.2400, L503.6075, L503.6150, L100.9950, L3100.1850, L503.6550, L3100.3425, L504.2610 ####[facility] [address] [place], [address] Retic Count 1.25 Normal 0.5-1.5 [facility] Comment on above: Performed By: #### L 100.0100, L3410.2400, L503.6075, L503.6150, L100.9950, L3100.1850, L503.6550, L3100.3425, L504.2610 ####[facility] [address] [place], [place], [id number] Cardiology Visit Reporton Cardiology Visit Report Normal [facility] Absolute lymphocyte countOrd ered By: Daron Benton on 02-29-2024 Lymphocytes Auto (Unsp spec) [#/Vol] 1.00 10*3/uL 0.83-4.51 [facility] Automated lymphocyte count a s percentage of total leukocytesOrdered By: Daron Benton on 02-29-2024 Lymphocytes/100 WBC Auto (Unsp spec) 20.5 % 19-41 [facility] Basophil percentageOrdered B y: Daron Benton on 02-29-2024 Basophil percentage 10.4 g/dL 12.0-15.0 [facility] Basophil percentage 72 mg/dL 74-106 [facility] Basophil percentage 6.4 g/dL 6.4-8.2 [facility] Basophil percentage 0.30 mg/dL 0.20-1.00 [facility] Basophil percentage 139 mmol/L 136-145 [facility] Basophil percentage 3.9 mmol/L 3.5-5.1 [facility] Basophil percentage 105 mmol/L 98-107 [facility] Basophils (Bld) [#/Vol] 4.9 10*3/uL 4.4-11.0 [facility] Basophils (Bld) [#/Vol] 3.1 10*3/uL 2.0-7.7 [facility] Basophils/100 WBC (Bld) 63.6 % 47-70 [facility] Basophils/100 WBC (Bld) 8.8 % 0-10 [facility] Basophils/100 WBC (Bld) 5.1 % 0-5 [facility] Basophils/100 WBC (Bld) 1.4 % 0-1 [facility] Blood manual differential co mment interpretation (narrative result)Ordered By: Daron Benton on 02-29-2024 Manual differential comment Jimy (Bld) [Interp] SCANNED [facility] Determination of erythrocyte mean corpuscular volume (MCV)Ordered By: Daron Benton on 02-29-2024 MCV (RBC) [Entitic vol] 84.6 fL 81-99 [facility] Erythrocyte distribution wid th ratioOrdered By: Daron Benton on 02-29-2024 Erythrocyte distribution width (RBC) [Ratio] 20.3 % 11.6-14.6 [facility] Erythrocyte distribution wid th standard deviationOrdered By: Daron Benton on 02-29-2024 Erythrocyte distribution width (RBC) [Entitic vol] 62.6 fL 35.1-43.9 [facility] Hematocrit Auto (Bld) [Volum e fraction]Ordered By: Daron Benton on 02-29-2024 Hematocrit (Bld) [Volume fraction] 35.7 % 37-47 [facility] Hemoglobin in reticulocytes (mass per reticulocyte)Ordered By: Daron Benton on 02-29-2024 Hemoglobin (Reticulocytes) [Entitic mass] 30.1 pg 30-35 [facility] Immature granulocytes/100 WB C Auto (Bld)Ordered By: Daron Benton on 02-29-2024 Immature granulocytes/100 WBC (Bld) 0.600 % 0.0-0.9 [facility] No Panel InformationOrdered By: Daron Benton on 02-29-2024 24.6 pg 27.0-32.0 [facility] 29.1 g/dL 32-36 [facility] 211 K/mm3 150-450 [facility] 10.0 fl 6.2-12.0 [facility] 0 % 0-5 [facility] 12.20 % 3.00-15.90 [facility] 63 mL/min >60 [facility] 76 mL/min >60 [facility] 13.8 RATIO 10-20 [facility] 3.5 g/dL 2.2-4.2 [facility] 0.8 RATIO 0.9-2.4 [facility] 134 U/L 45-117 [facility] 13 U/L 13-56 [facility] 31.0 mmol/L 21.0-32.0 [facility] 386 pg/mL 211-911 [facility] 292 ng/mL 8-252 [facility] 8.20 ng/mL 3.1-55.4 [facility] RBC Auto (Bld) [#/Vol]Ordere d By: Daron Benton on 02-29-2024 RBC (Bld) [#/Vol] 4.22 10*6/uL 4.2-5.4 [facility] Reticulocytes Auto (Bld) [#/ Vol]Ordered By: Daron Benton on 02-29-2024 Reticulocytes/100 RBC (Bld) 1.50 % 0.5-1.5 [facility] Serum or plasma calcium stefania urement (mass/volume)Ordered By: Daron Bneton on 02-29-2024 Calcium [Mass/Vol] 8.8 mg/dL 8.5-10.1 [facility] Serum or plasma creatinine m easurement (mass/volume)Ordered By: Daron Benton on 02-29-2024 Creatinine [Mass/Vol] 0.94 mg/dL 0.55-1.02 [facility] Serum or plasma urea nitroge n measurement (mass/volume)Ordered By: Daron Benton on 02-29-2024 Urea nitrogen [Mass/Vol] 13 mg/dL 7-18 [facility] Thin prep Papanicolaou smear with manual screeningOrdered By: Daron Benton on 02-29-2024 Thin prep Papanicolaou smear with manual screening 2.9 g/dL 3.2-5.0 [facility] Thin prep Papanicolaou smear with manual screening 15 U/L 15-37 [facility] Thin prep Papanicolaou smear with manual screening 3 5-15 [facility] Absolute lymphocyte countOrd ered By: Roman Mckeon on 02-25-2024 Lymphocytes Auto (Unsp spec) [#/Vol] 1.08 10*3/uL 0.83-4.51 [facility] Activated partial thrombopla stin time (aPTT) in platelet poor plasma by coagulation aOrdered By: Daron Cortes on 02-25-2024 aPTT Coag (PPP) [Time] 33.2 s 24.1-36.2 [facility] Automated lymphocyte count a s percentage of total leukocytesOrdered By: Roman Mckeon on 02-25-2024 Lymphocytes/100 WBC Auto (Unsp spec) 16.3 % 19-41 [facility] Basophil percentageOrdered B y: Eva Mortensen on 02-25-2024 Basophil percentage 10.7 g/dL 12.0-15.0 [facility] Basophil percentageOrdered B y: Roman Mckeon on 02-25-2024 Basophil percentage 85 mg/dL 74-106 [facility] Basophil percentage 141 mmol/L 136-145 [facility] Basophil percentage 3.8 mmol/L 3.5-5.1 [facility] Basophil percentage 110 mmol/L 98-107 [facility] Basophils (Bld) [#/Vol] 6.6 10*3/uL 4.4-11.0 [facility] Basophils (Bld) [#/Vol] 4.6 10*3/uL 2.0-7.7 [facility] Basophils/100 WBC (Bld) 68.4 % 47-70 [facility] Basophils/100 WBC (Bld) 11.3 % 0-10 [facility] Basophils/100 WBC (Bld) 2.9 % 0-5 [facility] Basophils/100 WBC (Bld) 0.5 % 0-1 [facility] Determination of erythrocyte mean corpuscular volume (MCV)Ordered By: Roman Mckeon on 02-25-2024 MCV (RBC) [Entitic vol] 83.5 fL 81-99 [facility] Erythrocyte distribution wid th ratioOrdered By: Roman Mckeon on 02-25-2024 Erythrocyte distribution width (RBC) [Ratio] 19.6 % 11.6-14.6 [facility] Erythrocyte distribution wid th standard deviationOrdered By: Roman Mckeon on 02-25-2024 Erythrocyte distribution width (RBC) [Entitic vol] 57.3 fL 35.1-43.9 [facility] Hematocrit Auto (Bld) [Volum e fraction]Ordered By: Roman Mckeon on 02-25-2024 Hematocrit (Bld) [Volume fraction] 34.3 % 37-47 [facility] Immature granulocytes/100 WB C Auto (Bld)Ordered By: Roman Mckeon on 02-25-2024 Immature granulocytes/100 WBC (Bld) 0.600 % 0.0-0.9 [facility] No Panel InformationOrdered By: Roman Mckeon on 02-25-2024 25.1 pg 27.0-32.0 [facility] 30.0 g/dL 32-36 [facility] 205 K/mm3 150-450 [facility] 9.6 fl 6.2-12.0 [facility] 0 % 0-5 [facility] 70 mL/min >60 [facility] 85 mL/min >60 [facility] 55.02 ml/min [facility] 14.1 RATIO 10-20 [facility] 26.0 mmol/L 21.0-32.0 [facility] No Panel InformationOrdered By: Daron Cortes on 02-25-2024 13.8 SECONDS 11.7-14.9 [facility] 1.1 [facility] RBC Auto (Bld) [#/Vol]Ordere d By: Roman Mckeon on 02-25-2024 RBC (Bld) [#/Vol] 4.11 10*6/uL 4.2-5.4 [facility] Serum or plasma calcium stefania urement (mass/volume)Ordered By: Roman Mckeon on 02-25-2024 Calcium [Mass/Vol] 8.5 mg/dL 8.5-10.1 [facility] Serum or plasma creatinine m easurement (mass/volume)Ordered By: Roman Mckeon on 02-25-2024 Creatinine [Mass/Vol] 0.85 mg/dL 0.55-1.02 [facility] Serum or plasma thyroid stim ulating hormone (TSH) measurement (units/volume)Ordered By: Daron Cortes on 02-25-2024 TSH Qn 3.07 uIU/mL 0.358-3.74 [facility] Serum or plasma urea nitroge n measurement (mass/volume)Ordered By: Roman Mckeon on 02-25-2024 Urea nitrogen [Mass/Vol] 12 mg/dL 7-18 [facility] Thin prep Papanicolaou smear with manual screeningOrdered By: Roman Mckeon on 02-25-2024 Thin prep Papanicolaou smear with manual screening 5 5-15 [facility] Basophil percentageOrdered B y: Roman Mckeon on 02-23-2024 Basophil percentage 2.6 mg/dL 2.5-4.9 [facility] No Panel InformationOrdered By: Roman Mckeon on 02-23-2024 28 pg/mL 3.0-54.0 [facility] 2.0 mg/dL 1.6-2.6 [facility] Bacteria identified Respirat ory culture Nom (Unsp spec)Ordered By: Roman Mckeon on 02-22-2024 Microbial respiratory culture Presumptive C albicans [facility] Basophil percentageOrdered B y: Roman Mckeon on 02-22-2024 Basophil percentage 5.2 g/dL 6.4-8.2 [facility] Basophil percentage 0.20 mg/dL 0.20-1.00 [facility] Gram stain for investigation of transfusion reactionOrdered By: Roman Mckeon on 02-22-2024 Microscopic observation Gram stain Nom (Unsp spec) [facility] No Panel InformationOrdered By: Roman Mckeon on 02-22-2024 3.0 g/dL 2.2-4.2 [facility] 0.7 RATIO 0.9-2.4 [facility] 133 U/L 45-117 [facility] 8 U/L 13-56 [facility] Thin prep Papanicolaou smear with manual screeningOrdered By: Roman Mkceon on 02-22-2024 Thin prep Papanicolaou smear with manual screening 2.2 g/dL 3.2-5.0 [facility] Thin prep Papanicolaou smear with manual screening 9 U/L 15-37 [facility] Absolute lymphocyte countOrd ered By: Jeffy Willoughby on 02-19-2024 Lymphocytes Auto (Unsp spec) [#/Vol] 1.17 10*3/uL 0.83-4.51 [facility] Automated lymphocyte count a s percentage of total leukocytesOrdered By: Jeffy Willoughby on 02-19-2024 Lymphocytes/100 WBC Auto (Unsp spec) 14.5 % 19-41 [facility] Basophil percentageOrdered B y: Jeffy Willoughby on 02-19-2024 Basophil percentage 1.0 mmol/L 0.4-2.0 [facility] Basophil percentage 6.6 g/dL 12.0-15.0 [facility] Basophil percentage 128 mg/dL 74-106 [facility] Basophil percentage 137 mmol/L 136-145 [facility] Basophil percentage 3.8 mmol/L 3.5-5.1 [facility] Basophil percentage 106 mmol/L 98-107 [facility] Basophils (Bld) [#/Vol] 8.1 10*3/uL 4.4-11.0 [facility] Basophils (Bld) [#/Vol] 5.9 10*3/uL 2.0-7.7 [facility] Basophils/100 WBC (Bld) 73.5 % 47-70 [facility] Basophils/100 WBC (Bld) 8.5 % 0-10 [facility] Basophils/100 WBC (Bld) 2.6 % 0-5 [facility] Basophils/100 WBC (Bld) 0.4 % 0-1 [facility] Determination of erythrocyte mean corpuscular volume (MCV)Ordered By: Jeffy Willoughby on 02-19-2024 MCV (RBC) [Entitic vol] 77.2 fL 81-99 [facility] Erythrocyte distribution wid th ratioOrdered By: Jeffy Willoughby on 02-19-2024 Erythrocyte distribution width (RBC) [Ratio] 17.1 % 11.6-14.6 [facility] Erythrocyte distribution wid th standard deviationOrdered By: Jeffy Willoughby on 02-19-2024 Erythrocyte distribution width (RBC) [Entitic vol] 48.0 fL 35.1-43.9 [facility] Hematocrit Auto (Bld) [Volum e fraction]Ordered By: Jeffy Willoughby on 02-19-2024 Hematocrit (Bld) [Volume fraction] 22.4 % 37-47 [facility] Immature granulocytes/100 WB C Auto (Bld)Ordered By: Jeffy Willoughby on 02-19-2024 Immature granulocytes/100 WBC (Bld) 0.500 % 0.0-0.9 [facility] Lower GI hemoglobin IA Ql (S tl)Ordered By: Jeffy Willoughby on 02-19-2024 Stool gastrointestinal hemoglobin detection by immunologic method Positive [facility] No Panel InformationOrdered By: Jeffyaura Willoughby on 02-19-2024 15 pg/mL 3.0-54.0 [facility] No growth in 5 days. [facility] 22.8 pg 27.0-32.0 [facility] 29.5 g/dL 32-36 [facility] 193 K/mm3 150-450 [facility] 10.0 fl 6.2-12.0 [facility] 0 % 0-5 [facility] 58 mL/min >60 [facility] 71 mL/min >60 [facility] 49.70 ml/min [facility] 21.0 RATIO 10-20 [facility] 25.0 mmol/L 21.0-32.0 [facility] RBC Auto (Bld) [#/Vol]Ordere d By: Jeffyaura Willoughby on 02-19-2024 RBC (Bld) [#/Vol] 2.90 10*6/uL 4.2-5.4 [facility] Serum or plasma calcium stefania urement (mass/volume)Ordered By: Jeffy Willoughby on 02-19-2024 Calcium [Mass/Vol] 8.3 mg/dL 8.5-10.1 [facility] Serum or plasma creatinine m easurement (mass/volume)Ordered By: Jeffy Willoughby on 02-19-2024 Creatinine [Mass/Vol] 1.00 mg/dL 0.55-1.02 [facility] Serum or plasma urea nitroge n measurement (mass/volume)Ordered By: Jeffyaura Willoughby on 02-19-2024 Urea nitrogen [Mass/Vol] 21 mg/dL 7-18 [facility] Thin prep Papanicolaou smear with manual screeningOrdered By: Jeffyaura Willoughby on 02-19-2024 Thin prep Papanicolaou smear with manual screening 128 mg/dL 74-106 [facility] Thin prep Papanicolaou smear with manual screening 6 5-15 [facility] Urine Legionella pneumophila antigen detectionOrdered By: Roman Mckeon on 02-19-2024 L. pneumophila Ag Ql (U) [facility] Absolute lymphocyte countOrd ered By: Daron Benton on 01-18-2024 Lymphocytes Auto (Unsp spec) [#/Vol] 1.27 10*3/uL 0.83-4.51 [facility] Automated lymphocyte count a s percentage of total leukocytesOrdered By: Daron Benton on 01-18-2024 Lymphocytes/100 WBC Auto (Unsp spec) 11.7 % 19-41 [facility] Basophil percentageOrdered B y: Daron Benton on 01-18-2024 Basophil percentage 8.9 g/dL 12.0-15.0 [facility] Basophil percentage 96 mg/dL 74-106 [facility] Basophil percentage 6.8 g/dL 6.4-8.2 [facility] Basophil percentage 0.40 mg/dL 0.20-1.00 [facility] Basophil percentage 139 mmol/L 136-145 [facility] Basophil percentage 4.1 mmol/L 3.5-5.1 [facility] Basophil percentage 106 mmol/L 98-107 [facility] Basophils (Bld) [#/Vol] 10.9 10*3/uL 4.4-11.0 [facility] Basophils (Bld) [#/Vol] 8.1 10*3/uL 2.0-7.7 [facility] Basophils/100 WBC (Bld) 74.9 % 47-70 [facility] Basophils/100 WBC (Bld) 8.6 % 0-10 [facility] Basophils/100 WBC (Bld) 2.0 % 0-5 [facility] Basophils/100 WBC (Bld) 0.8 % 0-1 [facility] Determination of erythrocyte mean corpuscular volume (MCV)Ordered By: Daron Benton on 01-18-2024 MCV (RBC) [Entitic vol] 88.1 fL 81-99 [facility] Erythrocyte distribution wid th ratioOrdered By: Daron Benton on 01-18-2024 Erythrocyte distribution width (RBC) [Ratio] 16.0 % 11.6-14.6 [facility] Erythrocyte distribution wid th standard deviationOrdered By: Daron Benton on 01-18-2024 Erythrocyte distribution width (RBC) [Entitic vol] 51.1 fL 35.1-43.9 [facility] Hematocrit Auto (Bld) [Volum e fraction]Ordered By: Daron Benton on 01-18-2024 Hematocrit (Bld) [Volume fraction] 30.4 % 37-47 [facility] Hemoglobin in reticulocytes (mass per reticulocyte)Ordered By: Daron Benton on 01-18-2024 Hemoglobin (Reticulocytes) [Entitic mass] 25.6 pg 30-35 [facility] Immature granulocytes/100 WB C Auto (Bld)Ordered By: Daron Benton on 01-18-2024 Immature granulocytes/100 WBC (Bld) 2.000 % 0.0-0.9 [facility] No Panel InformationOrdered By: Daron Benton on 01-18-2024 25.8 pg 27.0-32.0 [facility] 29.3 g/dL 32-36 [facility] 449 K/mm3 150-450 [facility] 9.0 fl 6.2-12.0 [facility] 0 % 0-5 [facility] 34.00 % 3.00-15.90 [facility] 55 mL/min >60 [facility] 66 mL/min >60 [facility] 18.9 RATIO 10-20 [facility] 4.0 g/dL 2.2-4.2 [facility] 0.7 RATIO 0.9-2.4 [facility] 161 U/L 45-117 [facility] 13 U/L 13-56 [facility] 28.0 mmol/L 21.0-32.0 [facility] 2.2 pg/mL 2.18-3.98 [facility] 808 pg/mL 211-911 [facility] 82 ng/mL 8-252 [facility] 9.40 ng/mL 3.1-55.4 [facility] RBC Auto (Bld) [#/Vol]Ordere d By: Daron Benton on 01-18-2024 RBC (Bld) [#/Vol] 3.45 10*6/uL 4.2-5.4 [facility] Reticulocytes Auto (Bld) [#/ Vol]Ordered By: Daron Benton on 01-18-2024 Reticulocytes/100 RBC (Bld) 3.70 % 0.5-1.5 [facility] Serum or plasma calcium stefania urement (mass/volume)Ordered By: Daron Benton on 01-18-2024 Calcium [Mass/Vol] 8.7 mg/dL 8.5-10.1 [facility] Serum or plasma creatinine m easurement (mass/volume)Ordered By: Daron Benton on 01-18-2024 Creatinine [Mass/Vol] 1.06 mg/dL 0.55-1.02 [facility] Serum or plasma thyroid stim ulating hormone (TSH) measurement (units/volume)Ordered By: Daron Benton on 01-18-2024 TSH Qn 3.92 uIU/mL 0.358-3.74 [facility] Serum or plasma urea nitroge n measurement (mass/volume)Ordered By: Daron Benton on 01-18-2024 Urea nitrogen [Mass/Vol] 20 mg/dL 7-18 [facility] Thin prep Papanicolaou smear with manual screeningOrdered By: Daron Benton on 01-18-2024 Thin prep Papanicolaou smear with manual screening 2.8 g/dL 3.2-5.0 [facility] Thin prep Papanicolaou smear with manual screening 12 U/L 15-37 [facility] Thin prep Papanicolaou smear with manual screening 5 5-15 [facility] Thin prep Papanicolaou smear with manual screening 1.39 ng/dL 0.76-1.46 [facility] Absolute lymphocyte countOrd ered By: Jori Garcia on 01-11-2024 Lymphocytes Auto (Unsp spec) [#/Vol] 0.76 10*3/uL 0.83-4.51 [facility] Automated lymphocyte count a s percentage of total leukocytesOrdered By: Jori Garcia on 01-11-2024 Lymphocytes/100 WBC Auto (Unsp spec) 5.2 % 19-41 [facility] Basophil percentageOrdered B y: Jori Garcia on 01-11-2024 Basophil percentage 1.3 mmol/L 0.4-2.0 [facility] Basophil percentage 0 SEEN /hpf 0-5 [facility] Basophil percentage 10.2 g/dL 12.0-15.0 [facility] Basophil percentage 159 mg/dL 74-106 [facility] Basophil percentage 137 mmol/L 136-145 [facility] Basophil percentage 3.9 mmol/L 3.5-5.1 [facility] Basophil percentage 104 mmol/L 98-107 [facility] Basophils (Bld) [#/Vol] 14.6 10*3/uL 4.4-11.0 [facility] Basophils (Bld) [#/Vol] 12.4 10*3/uL 2.0-7.7 [facility] Basophils/100 WBC (Bld) 85.1 % 47-70 [facility] Basophils/100 WBC (Bld) 7.7 % 0-10 [facility] Basophils/100 WBC (Bld) 0.2 % 0-5 [facility] Basophils/100 WBC (Bld) 0.5 % 0-1 [facility] Bilirubin Test strip Ql (U)O rdered By: Jori Garcia on 01-11-2024 Bilirubin Ql (U) Negative Negative [facility] Determination of erythrocyte mean corpuscular volume (MCV)Ordered By: Jori Garcia on 01-11-2024 MCV (RBC) [Entitic vol] 86.4 fL 81-99 [facility] Erythrocyte distribution wid th ratioOrdered By: Jori Garcia on 01-11-2024 Erythrocyte distribution width (RBC) [Ratio] 15.2 % 11.6-14.6 [facility] Erythrocyte distribution wid th standard deviationOrdered By: oJri Garcia on 01-11-2024 Erythrocyte distribution width (RBC) [Entitic vol] 48.4 fL 35.1-43.9 [facility] Hematocrit Auto (Bld) [Volum e fraction]Ordered By: Jori Garcia on 01-11-2024 Hematocrit (Bld) [Volume fraction] 32.4 % 37-47 [facility] Immature granulocytes/100 WB C Auto (Bld)Ordered By: Jori Garcia on 01-11-2024 Immature granulocytes/100 WBC (Bld) 1.300 % 0.0-0.9 [facility] Ketones Test strip Ql (U)Ord ered By: Jori Garcia on 01-11-2024 Ketones Ql (U) Negative Negative [facility] Mucus LM Ql (Urine sed)Order ed By: Jori Garcia on 01-11-2024 Mucus Ql (Urine sed) 0 SEEN /hpf [facility] Nitrite Test strip Ql (U)Ord ered By: Jori Garcia on 01-11-2024 Nitrite Ql (U) Negative Negative [facility] No Panel InformationOrdered By: Jori Garcia on 01-11-2024 17 pg/mL 3.0-54.0 [facility] 0 SEEN /hpf 0-5 [facility] 27.2 pg 27.0-32.0 [facility] 31.5 g/dL 32-36 [facility] 308 K/mm3 150-450 [facility] 9.2 fl 6.2-12.0 [facility] 0 % 0-5 [facility] 54 mL/min >60 [facility] 65 mL/min >60 [facility] 43.08 ml/min [facility] 16.8 RATIO 10-20 [facility] 2.1 mg/dL 1.6-2.6 [facility] 26.0 mmol/L 21.0-32.0 [facility] Protein Test strip Ql (U)Ord ered By: Jori Garcia on 01-11-2024 Protein Ql (U) Negative Negative [facility] RBC Auto (Bld) [#/Vol]Ordere d By: Jori Garcia on 01-11-2024 RBC (Bld) [#/Vol] 3.75 10*6/uL [facility]2-5.4 [facility] Serum or plasma calcium stefania urement (mass/volume)Ordered By: Jori Garcia on 01-11-2024 Calcium [Mass/Vol] 9.1 mg/dL 8.5-10.1 [facility] Serum or plasma creatinine m easurement (mass/volume)Ordered By: Jori Garcia on 01-11-2024 Creatinine [Mass/Vol] 1.07 mg/dL 0.55-1.02 [facility] Serum or plasma urea nitroge n measurement (mass/volume)Ordered By: Jori Garcia on 01-11-2024 Urea nitrogen [Mass/Vol] 18 mg/dL 7-18 [facility] Squamous epithelial cells de tection in urine sediment by light microscopyOrdered By: Jori Garcia on 01-11-2024 Epithelial cells.squamous LM Ql (Urine sed) 0 SEEN /hpf 5-10 [facility] Thin prep Papanicolaou smear with manual screeningOrdered By: Jori Garcia on 01-11-2024 Thin prep Papanicolaou smear with manual screening 7 5-15 [facility] Urine blood detectionOrdered By: Jori Garcia on 01-11-2024 RBC Ql (U) Negative Negative [facility] Urine clarityOrdered By: Kasandra Garcia on 01-11-2024 Clarity (U) Clear Clear [facility] Urine color determinationOrd ered By: Jori Garcia on 01-11-2024 Color (U) Yellow Yellow [facility] Urine glucose detectionOrder ed By: Jori Garcia on 01-11-2024 Glucose Ql (U) Normal mg/dl Normal [facility] Urine leukocyte esterase det ection by dipstickOrdered By: Jori Garcia on 01-11-2024 Leukocyte esterase Test strip Ql (U) 25 /ul Negative [facility] Urine pHOrdered By: Jori Garcia on 01-11-2024 pH (U) 7.0 [pH] 5.0 - 8.0 [facility] Urine sediment bacteria coun t by microscopy (number/high power field)Ordered By: Jori Garcia on 01-11-2024 Bacteria LM.HPF (Urine sed) [#/Area] 0 /[HPF] None Seen [facility] Urine specific gravity measu rementOrdered By: Jori Garcia on 01-11-2024 Specific gravity (U) [Rel density] 1.010 1.002-1.03 0 [facility] Urine urobilinogen measureme ntOrdered By: Jori Garcia on 01-11-2024 Urobilinogen Ql (U) Normal mg/dl Normal [facility] Basophil percentageOrdered B y: Betsey Lindquist on 12-21-2023 Basophil percentage 9.9 g/dL 12.0-15.0 [facility] Hematocrit Auto (Bld) [Volum e fraction]Ordered By: Betsey Lindquist on 12-21-2023 Hematocrit (Bld) [Volume fraction] 32.2 % 37-47 [facility] Absolute lymphocyte countOrd ered By: Sachin Murillo on 12-07-2023 Lymphocytes Auto (Unsp spec) [#/Vol] 1.31 10*3/uL 0.83-4.51 [facility] Automated lymphocyte count a s percentage of total leukocytesOrdered By: Sachin Murillo on 12-07-2023 Lymphocytes/100 WBC Auto (Unsp spec) 17.9 % 19-41 [facility] Basophil percentageOrdered B y: Sachin Murillo on 12-07-2023 Basophil percentage 9.0 g/dL 12.0-15.0 [facility] Basophil percentage 94 mg/dL 74-106 [facility] Basophil percentage 142 mmol/L 136-145 [facility] Basophil percentage 3.6 mmol/L 3.5-5.1 [facility] Basophil percentage 111 mmol/L 98-107 [facility] Basophils (Bld) [#/Vol] 7.3 10*3/uL 4.4-11.0 [facility] Basophils (Bld) [#/Vol] 5.2 10*3/uL 2.0-7.7 [facility] Basophils/100 WBC (Bld) 71.0 % 47-70 [facility] Basophils/100 WBC (Bld) 9.8 % 0-10 [facility] Basophils/100 WBC (Bld) 0.1 % 0-1 [facility] Determination of erythrocyte mean corpuscular volume (MCV)Ordered By: Sachin Murillo on 12-07-2023 MCV (RBC) [Entitic vol] 90.7 fL 81-99 [facility] Erythrocyte distribution wid th ratioOrdered By: Sachin Murillo on 12-07-2023 Erythrocyte distribution width (RBC) [Ratio] 15.6 % 11.6-14.6 [facility] Erythrocyte distribution wid th standard deviationOrdered By: Sachin Murillo on 12-07-2023 Erythrocyte distribution width (RBC) [Entitic vol] 51.9 fL 35.1-43.9 [facility] Hematocrit Auto (Bld) [Volum e fraction]Ordered By: Sachin Murillo on 12-07-2023 Hematocrit (Bld) [Volume fraction] 27.4 % 37-47 [facility] Immature granulocytes/100 WB C Auto (Bld)Ordered By: Sachin Murillo on 12-07-2023 Immature granulocytes/100 WBC (Bld) 1.100 % 0.0-0.9 [facility] No Panel InformationOrdered By: Sachin Murillo on 12-07-2023 29.8 pg 27.0-32.0 [facility] 32.8 g/dL 32-36 [facility] 216 K/mm3 150-450 [facility] 0 % 0-5 [facility] 58 mL/min >60 [facility] 70 mL/min >60 [facility] 46.47 ml/min [facility] 29.7 RATIO 10-20 [facility] 26.0 mmol/L 21.0-32.0 [facility] Platelet mean volume Jordan-Ec ker (Bld) [Entitic vol]Ordered By: Sachin Murillo on 12-07-2023 Platelet mean volume (Bld) [Entitic vol] 9.5 fL 6.2-12.0 [facility] RBC Auto (Bld) [#/Vol]Ordere d By: Sachin Murillo on 12-07-2023 RBC (Bld) [#/Vol] 3.02 10*6/uL 4.2-5.4 [facility] Serum or plasma calcium stefania urement (mass/volume)Ordered By: Sachin Murillo on 12-07-2023 Calcium [Mass/Vol] 7.7 mg/dL 8.5-10.1 [facility] Serum or plasma creatinine m easurement (mass/volume)Ordered By: Sachin Murillo on 12-07-2023 Creatinine [Mass/Vol] 1.01 mg/dL 0.55-1.02 [facility] Serum or plasma urea nitroge n measurement (mass/volume)Ordered By: Sachin Murillo on 12-07-2023 Urea nitrogen [Mass/Vol] 30 mg/dL 7-18 [facility] Thin prep Papanicolaou smear with manual screeningOrdered By: Sachin Murillo on 12-07-2023 Thin prep Papanicolaou smear with manual screening 5 5-15 [facility] Iron measurement (mass/mass) Ordered By: Sachin Murillo on 12-06-2023 Iron (Unsp spec) [Mass/Mass] 67 ug/dL 50-170 [facility] No Panel InformationOrdered By: Sachin Murillo on 12-06-2023 203 ug/dL 250-450 [facility] 96 ng/mL 8-252 [facility] Serum or plasma iron saturat ion measurement (mass fraction)Ordered By: Sachin Murillo on 12-06-2023 Iron saturation [Mass fraction] 33.0 % 15.0-55.0 [facility] Basophil percentageOrdered B y: Jorge Hurtado on 12-04-2023 Basophil percentage 13.0 umol/L 11-32 [facility] Basophil percentage 6.4 g/dL 6.4-8.2 [facility] Basophil percentage 0.20 mg/dL 0.20-1.00 [facility] Blood manual differential co mment interpretation (narrative result)Ordered By: Sachin Murillo on 12-04-2023 Manual differential comment Jimy (Bld) [Interp] SCANNED [facility] Direct bilirubinOrdered By: Jorge Hurtado on 12-04-2023 Bilirubin.direct [Mass/Vol] 0.11 mg/dL 0.00-0.30 [facility] No Panel InformationOrdered By: Jorge Hurtado on 12-04-2023 3.7 g/dL 2.2-4.2 [facility] 127 U/L 45-117 [facility] 15 U/L 13-56 [facility] 1.65 uIU/mL 0.358-3.74 [facility] Serum or plasma albumin stefania urement (mass/volume)Ordered By: Jorge Hurtado on 12-04-2023 Albumin [Mass/Vol] 2.7 g/dL 3.2-5.0 [facility] Thin prep Papanicolaou smear with manual screeningOrdered By: Jorge Hurtado on 12-04-2023 Thin prep Papanicolaou smear with manual screening 17 U/L 15-37 [facility] Assessment of wrist artery p atency prior to arterial punctureOrdered By: Sachin Murillo on 12-03-2023 Arterial patency Wrist artery --pre arterial puncture Positive [facility] Base excessOrdered By: Jarred Murillo on 12-03-2023 Base excess Calc (BldV) [Moles/Vol] -3 mmol/L -2-2 [facility] Basophil percentageOrdered B y: Sachin Murillo on 12-03-2023 Basophil percentage 21.5 mmol/L 22-26 [facility] Basophils/100 WBC (Bld) 97 % 95-99 [facility] Basophil percentageOrdered B y: Roman Mckeon on 12-03-2023 Basophil percentage 3.0 mg/dL 2.5-4.9 [facility] CO2 (BldA) [Partial pressure ]Ordered By: Sachin Murillo on 12-03-2023 CO2 (Bld) [Partial pressure] 34.8 mm[Hg] 35-45 [facility] Glucose Glucometer (dC) [M ass/Vol]Ordered By: Sachin Murillo on 12-03-2023 Glucose [Mass/Vol] 175 mg/dL 74-106 [facility] Measurement, pHOrdered By: Carlos Murillo on 12-03-2023 pH (Unsp spec) 7.40 [pH] 7.35-7.45 [facility] No Panel InformationOrdered By: Sachin Murillo on 12-03-2023 ART [facility] L Radial [facility] Not entered [facility] Cannula [facility] 1.0 [facility] 23 mmol/L [facility] No Panel InformationOrdered By: Roman Mckeon on 12-03-2023 2.6 mg/dL 1.6-2.6 [facility] Oxygen (BldA) [Partial press ure]Ordered By: Sachin Murillo on 12-03-2023 Oxygen (Bld) [Partial pressure] 93 mmHG 75-100 [facility] Absolute lymphocyte countOrd ered By: Gabriella Simpson on 12-02-2023 Lymphocytes Auto (Unsp spec) [#/Vol] 1.89 10*3/uL 0.83-4.51 [facility] Basophil percentageOrdered B y: Gabriella Simpson on 12-02-2023 Basophil percentage 0 SEEN /hpf 0-5 [facility] Basophil percentage 109 mg/dL 74-106 [facility] Basophil percentage 140 mmol/L 136-145 [facility] Basophil percentage 3.7 mmol/L 3.5-5.1 [facility] Basophil percentage 107 mmol/L 98-107 [facility] Basophils (Bld) [#/Vol] 6.6 10*3/uL 4.4-11.0 [facility] Basophils (Bld) [#/Vol] 3.8 10*3/uL 2.0-7.7 [facility] Basophils/100 WBC (Bld) 56.3 % 47-70 [facility] Basophils/100 WBC (Bld) 0.9 % 0-5 [facility] Basophils/100 WBC (Bld) 0.8 % 0-1 [facility] Bilirubin Test strip Ql (U)O rdered By: Gabriella Simpson on 12-02-2023 Bilirubin Ql (U) Negative Negative [facility] Blood erythrocytes count (nu mber/volume)Ordered By: Gabriella Simpson on 12-02-2023 RBC (Bld) [#/Vol] 4.21 10*6/uL 4.2-5.4 [facility] Blood hemoglobin measurement (mass/volume)Ordered By: Gabriella Simpson on 12-02-2023 Hemoglobin (Bld) [Mass/Vol] 12.5 g/dL 12.0-15.0 [facility] Blood lymphocytes/100 leukoc ytesOrdered By: Gabriella Simpson on 12-02-2023 Lymphocytes/100 WBC (Bld) 28.5 % 19-41 [facility] Blood monocytes/100 leukocyt esOrdered By: Gabriella Simpson on 12-02-2023 Monocytes/100 WBC (Bld) 12.7 % 0-10 [facility] Blood platelet mean volumeOr dered By: Gabriella Simpson on 12-02-2023 Platelet mean volume (Bld) [Entitic vol] 9.1 fL 6.2-12.0 [facility] Culture, urineOrdered By: Edgar Mckeon on 12-02-2023 Bacteria identified Cx Nom (U) Culture exhibits no growth. [facility] Bacteria identified Cx Nom (U) Culture exhibits no growth. [facility] Determination of erythrocyte mean corpuscular volume (MCV)Ordered By: Gabriella Simpson on 12-02-2023 MCV (RBC) [Entitic vol] 89.1 fL 81-99 [facility] Hematocrit Auto (Bld) [Volum e fraction]Ordered By: Gabriella Simpson on 12-02-2023 Hematocrit (Bld) [Volume fraction] 37.5 % 37-47 [facility] Ketones Test strip Ql (U)Ord ered By: Gabriella Simpson on 12-02-2023 Ketones Ql (U) Negative Negative [facility] MCHC Auto (RBC) [Mass/Vol]Or dered By: Gabriella Simpson on 12-02-2023 MCHC (RBC) [Mass/Vol] 33.3 g/dL 32-36 [facility] Mucus LM Ql (Urine sed)Order ed By: Gabriella Simpson on 12-02-2023 Mucus Ql (Urine sed) 0 SEEN /hpf [facility] Nitrite Test strip Ql (U)Ord ered By: Gabriella Simpson on 12-02-2023 Nitrite Ql (U) Negative Negative [facility] No Panel InformationOrdered By: Roman Mckeon on 12-02-2023 No growth in 5 days. [facility] No growth in 5 days. [facility] No Panel InformationOrdered By: Gabriella Simpson on 12-02-2023 29.7 pg 27.0-32.0 [facility] 15.5 % 11.6-14.6 [facility] 50.4 fl 35.1-43.9 [facility] 0.800 % 0.0-0.9 [facility] 0 % 0-5 [facility] 51 mL/min >60 [facility] 61 mL/min >60 [facility] 41.54 ml/min [facility] 14.2 RATIO 10-20 [facility] 26 U/L 26-192 [facility] 25.0 mmol/L 21.0-32.0 [facility] Platelets bldOrdered By: Ene Simpson on 12-02-2023 Platelets (Bld) [#/Vol] 281 10*3/uL 150-450 [facility] Protein Test strip Ql (U)Ord ered By: Gabriella Simpson on 12-02-2023 Protein Ql (U) 15 mg/dl Negative [facility] Serum or plasma calcium stefania urement (mass/volume)Ordered By: Gabriella Simpson on 12-02-2023 Calcium [Mass/Vol] 8.8 mg/dL 8.5-10.1 [facility] Serum or plasma creatinine m easurement (mass/volume)Ordered By: Gabriella Simpson on 12-02-2023 Creatinine [Mass/Vol] 1.13 mg/dL 0.55-1.02 [facility] Serum or plasma urea nitroge n measurement (mass/volume)Ordered By: Gabriella Simpson on 12-02-2023 Urea nitrogen [Mass/Vol] 16 mg/dL 7-18 [facility] Squamous epithelial cells de tection in urine sediment by light microscopyOrdered By: Gabriella Simpson on 12-02-2023 Epithelial cells.squamous LM Ql (Urine sed) 0 SEEN /hpf 5-10 [facility] Thin prep Papanicolaou smear with manual screeningOrdered By: Gabriella Simpson on 12-02-2023 Thin prep Papanicolaou smear with manual screening 8 5-15 [facility] Urine blood detectionOrdered By: Gabriella Simpson on 12-02-2023 RBC Ql (U) Negative Negative [facility] RBC Ql (U) 0 SEEN /hpf 0-5 [facility] Urine clarityOrdered By: Ene Simpson on 12-02-2023 Clarity (U) Clear Clear [facility] Urine color determinationOrd ered By: Gabriella Simpson on 12-02-2023 Color (U) Yellow Yellow [facility] Urine glucose detectionOrder ed By: Gabriella Simpson on 12-02-2023 Glucose Ql (U) Normal mg/dl Normal [facility] Urine leukocyte esterase det ection by dipstickOrdered By: Gabriella Simpson on 12-02-2023 Leukocyte esterase Test strip Ql (U) 25 /ul Negative [facility] Urine pHOrdered By: Gabriella peoples on 12-02-2023 pH (U) 6.5 [pH] 5.0 - 8.0 [facility] Urine sediment bacteria coun t by microscopy (number/high power field)Ordered By: Gabriella Simpson on 12-02-2023 Bacteria LM.HPF (Urine sed) [#/Area] 0 /[HPF] None Seen [facility] Urine specific gravity measu rementOrdered By: Gabriella Simpson on 12-02-2023 Specific gravity (U) [Rel density] 1.015 1.002-1.03 0 [facility] Urobilinogen Auto test strip Ql (U)Ordered By: Gabriella Simpson on 12-02-2023 Urobilinogen Ql (U) Normal mg/dl Normal [facility] Absolute lymphocyte countOrd ered By: Ramírez Onofre on 11-27-2023 Lymphocytes Auto (Unsp spec) [#/Vol] 1.75 10*3/uL 0.83-4.51 [facility] Basophil percentageOrdered B y: Ramírez Onofre on 11-27-2023 Basophil percentage 106 mg/dL 74-106 [facility] Basophil percentage 140 mmol/L 136-145 [facility] Basophil percentage 3.7 mmol/L 3.5-5.1 [facility] Basophil percentage 108 mmol/L 98-107 [facility] Basophils (Bld) [#/Vol] 10.4 10*3/uL 4.4-11.0 [facility] Basophils (Bld) [#/Vol] 7.5 10*3/uL 2.0-7.7 [facility] Basophils/100 WBC (Bld) 0.4 % 0-1 [facility] Basophils/100 WBC (Bld) 71.7 % 47-70 [facility] Chloride [Moles/Vol] 108 mmol/L 98-107 [facility] Eosinophils/100 WBC (Bld) 0.4 % 0-5 [facility] Glucose [Mass/Vol] 106 mg/dL 74-106 [facility] Comment on above: Fasting Glucose resu lt from 100 to 125 mg/dL suggests IMPAIRED HOMEOSTASIS per A.D.A. criteria. Neutrophils (Bld) [#/Vol] 7.5 10*3/uL 2.0-7.7 [facility] Neutrophils/100 WBC (Bld) 71.7 % 47-70 [facility] Potassium [Moles/Vol] 3.7 mmol/L 3.5-5.1 [facility] Sodium [Moles/Vol] 140 mmol/L 136-145 [facility] WBC (Bld) [#/Vol] 10.4 10*3/uL 4.4-11.0 [facility] Blood erythrocytes count (nu mber/volume)Ordered By: Ramírez nOofre on 11-27-2023 RBC (Bld) [#/Vol] 3.89 10*6/uL 4.2-5.4 [facility] Blood hemoglobin measurement (mass/volume)Ordered By: Ramírez Onofre on 11-27-2023 Hemoglobin (Bld) [Mass/Vol] 11.6 g/dL 12.0-15.0 [facility] Blood lymphocytes/100 leukoc ytesOrdered By: Ramírez Onofre on 11-27-2023 Lymphocytes/100 WBC (Bld) 16.8 % 19-41 [facility] Blood monocytes/100 leukocyt esOrdered By: Ramírez Onofre on 11-27-2023 Monocytes/100 WBC (Bld) 9.9 % 0-10 [facility] Blood platelet mean volumeOr dered By: Ramírez Onofre on 11-27-2023 Platelet mean volume (Bld) [Entitic vol] 9.0 fL 6.2-12.0 [facility] Determination of erythrocyte mean corpuscular volume (MCV)Ordered By: Ramírez Onofre on 11-27-2023 MCV (RBC) [Entitic vol] 87.9 fL 81-99 [facility] Hematocrit Auto (Bld) [Volum e fraction]Ordered By: Ramírez Onofre on 11-27-2023 Hematocrit (Bld) [Volume fraction] 34.2 % 37-47 [facility] INR in Blood by Coagulation assayOrdered By: Ramírez Onofre on 11-27-2023 INR Coag (Bld) [Relative time] 1.0 {INR} [facility] Laboratory - Chemistry and C hemistry - challengeOrdered By: Ramírez Onofre on 01-09-2024 CO2 [Moles/Vol] 30.0 mmol/L 21.0-32.0 [facility] Urea nitrogen/Creatinine [Mass ratio] 12.8 mg/mg 10-20 [facility] Laboratory - CoagulationOrde red By: Ramírez Onofre on 11-27-2023 aPTT Coag (Bld) [Time] 27.8 s 24.1-36.2 [facility] PT Coag (PPP) [Time] 13.0 s 11.7-14.9 [facility] Laboratory - Hematology and Cell countsOrdered By: Ramírez Onofre on 11-27-2023 Erythrocyte distribution width (RBC) [Entitic vol] 48.7 fL 35.1-43.9 [facility] Erythrocyte distribution width (RBC) [Ratio] 15.3 % 11.6-14.6 [facility] Immature granulocytes/100 WBC (Bld) 0.800 % 0.0-0.9 [facility] Comment on above: IG% - Immature Granu locytes (promyelocytes, myelocytes and metamyelocytes) > 1% indicates that a LEFT SHIFT is Present. MCH (RBC) [Entitic mass] 29.8 pg 27.0-32.0 [facility] Nucleated RBC/100 WBC (Bld) [Ratio] 0 % 0-5 [facility] MCHC Auto (RBC) [Mass/Vol]Or dered By: Ramírez Onofre on 11-27-2023 MCHC (RBC) [Mass/Vol] 33.9 g/dL 32-36 [facility] Comment on above: Delta: 31.9 on 11/26-1320 No Panel InformationOrdered By: Ramírez Onofre on 11-27-2023 Estimated Creatinine Clearance Calc 41.86 ml/min [facility] Estimated GFR (MDRD) Amer 64 mL/min >60 [facility] Comment on above: GFR Calc Estimated GFR (MDRD) Non-Af Amer 53 mL/min >60 [facility] Comment on above: Non- GFR Calc Troponin I High Sensitivity 10 pg/mL 3.0-54.0 [facility] Comment on above: Please Note: New Kim t Units and Gender Specific Reference Ranges. For more information see Policy Stat Procedure [place] High Sensitivity Troponin (TNIH) and attachments. 29.8 pg 27.0-32.0 [facility] 15.3 % 11.6-14.6 [facility] 48.7 fl 35.1-43.9 [facility] 0.800 % 0.0-0.9 [facility] 0 % 0-5 [facility] 13.0 SECONDS 11.7-14.9 [facility] 27.8 Seconds 24.1-36.2 [facility] 53 mL/min >60 [facility] 64 mL/min >60 [facility] 41.86 ml/min [facility] 12.8 RATIO 10-20 [facility] 10 pg/mL 3.0-54.0 [facility] 30.0 mmol/L 21.0-32.0 [facility] Platelets bldOrdered By: Romeo Onofre on 11-27-2023 Platelets (Bld) [#/Vol] 232 10*3/uL 150-450 [facility] Serum or plasma calcium stefania urement (mass/volume)Ordered By: Ramírez Onofre on 11-27-2023 Calcium [Mass/Vol] 8.7 mg/dL 8.5-10.1 [facility] Serum or plasma creatinine m easurement (mass/volume)Ordered By: Ramírez Onofre on 11-27-2023 Creatinine [Mass/Vol] 1.09 mg/dL 0.55-1.02 [facility] Comment on above: The validity of the calculated GFR & GFRAA in patients over 70 years has not been determined. Clinical correlation is essential. Serum or plasma urea nitroge n measurement (mass/volume)Ordered By: Ramírez Onofre on 11-27-2023 Urea nitrogen [Mass/Vol] 14 mg/dL 7-18 [facility] Thin prep Papanicolaou smear with manual screeningOrdered By: Ramírez Onofre on 11-27-2023 Thin prep Papanicolaou smear with manual screening 2 5-15 [facility] Absolute lymphocyte countOrd ered By: Justice Cid on 11-26-2023 Lymphocytes Auto (Unsp spec) [#/Vol] 1.87 10*3/uL 0.83-4.51 [facility] Basophil percentageOrdered B y: Justice Cid on 11-26-2023 Basophil percentage 120 mg/dL 74-106 [facility] Basophil percentage 142 mmol/L 136-145 [facility] Basophil percentage 4.2 mmol/L 3.5-5.1 [facility] Basophil percentage 108 mmol/L 98-107 [facility] Basophils (Bld) [#/Vol] 9.7 10*3/uL 4.4-11.0 [facility] Basophils (Bld) [#/Vol] 6.8 10*3/uL 2.0-7.7 [facility] Basophils/100 WBC (Bld) 0.5 % 0-1 [facility] Basophils/100 WBC (Bld) 69.4 % 47-70 [facility] Basophils/100 WBC (Bld) 0.4 % 0-5 [facility] Chloride [Moles/Vol] 108 mmol/L 98-107 [facility] Eosinophils/100 WBC (Bld) 0.4 % 0-5 [facility] Glucose [Mass/Vol] 120 mg/dL 74-106 [facility] Comment on above: Fasting Glucose resu lt from 100 to 125 mg/dL suggests IMPAIRED HOMEOSTASIS per A.D.A. criteria. Neutrophils (Bld) [#/Vol] 6.8 10*3/uL 2.0-7.7 [facility] Neutrophils/100 WBC (Bld) 69.4 % 47-70 [facility] Potassium [Moles/Vol] 4.2 mmol/L 3.5-5.1 [facility] Sodium [Moles/Vol] 142 mmol/L 136-145 [facility] WBC (Bld) [#/Vol] 9.7 10*3/uL 4.4-11.0 [facility] Blood erythrocytes count (nu mber/volume)Ordered By: Justice Cid on 11-26-2023 RBC (Bld) [#/Vol] 3.84 10*6/uL 4.2-5.4 [facility] Blood hemoglobin measurement (mass/volume)Ordered By: Justice Cid on 11-26-2023 Hemoglobin (Bld) [Mass/Vol] 10.9 g/dL 12.0-15.0 [facility] Blood lymphocytes/100 leukoc ytesOrdered By: Justice Cid on 11-26-2023 Lymphocytes/100 WBC (Bld) 19.2 % 19-41 [facility] Blood monocytes/100 leukocyt esOrdered By: Justice Cid on 11-26-2023 Monocytes/100 WBC (Bld) 9.7 % 0-10 [facility] Blood platelet mean volumeOr dered By: Justice Cid on 11-26-2023 Platelet mean volume (Bld) [Entitic vol] 8.9 fL 6.2-12.0 [facility] Determination of erythrocyte mean corpuscular volume (MCV)Ordered By: Justice Cid on 11-26-2023 MCV (RBC) [Entitic vol] 89.1 fL 81-99 [facility] Hematocrit Auto (Bld) [Volum e fraction]Ordered By: Justice Cid on 11-26-2023 Hematocrit (Bld) [Volume fraction] 34.2 % 37-47 [facility] Laboratory - Chemistry and C hemistry - challengeOrdered By: Justice Cid on 11-26-2023 CO2 [Moles/Vol] 31.0 mmol/L 21.0-32.0 [facility] Urea nitrogen/Creatinine [Mass ratio] 13.8 mg/mg 10-20 [facility] Laboratory - Hematology and Cell countsOrdered By: Justice Cid on 11-26-2023 Erythrocyte distribution width (RBC) [Entitic vol] 49.2 fL 35.1-43.9 [facility] Erythrocyte distribution width (RBC) [Ratio] 15.4 % 11.6-14.6 [facility] Immature granulocytes/100 WBC (Bld) 0.800 % 0.0-0.9 [facility] Comment on above: IG% - Immature Granu locytes (promyelocytes, myelocytes and metamyelocytes) > 1% indicates that a LEFT SHIFT is Present. MCH (RBC) [Entitic mass] 28.4 pg 27.0-32.0 [facility] Nucleated RBC/100 WBC (Bld) [Ratio] 0 % 0-5 [facility] MCHC Auto (RBC) [Mass/Vol]Or dered By: Justice Cid on 11-26-2023 MCHC (RBC) [Mass/Vol] 31.9 g/dL 32-36 [facility] No Panel InformationOrdered By: Justice Cid on 11-26-2023 Estimated Creatinine Clearance Calc 39.99 ml/min [facility] Estimated GFR (MDRD) Amer 60 mL/min >60 [facility] Comment on above: GFR Calc Estimated GFR (MDRD) Non-Af Amer 49 mL/min >60 [facility] Comment on above: Non- GFR Calc Troponin I High Sensitivity 10 pg/mL 3.0-54.0 [facility] Comment on above: Please Note: New Kim t Units and Gender Specific Reference Ranges. For more information see Policy Stat Procedure [place] High Sensitivity Troponin (TNIH) and attachments. 28.4 pg 27.0-32.0 [facility] 15.4 % 11.6-14.6 [facility] 49.2 fl 35.1-43.9 [facility] 0.800 % 0.0-0.9 [facility] 0 % 0-5 [facility] 49 mL/min >60 [facility] 60 mL/min >60 [facility] 39.99 ml/min [facility] 13.8 RATIO 10-20 [facility] 10 pg/mL 3.0-54.0 [facility] 31.0 mmol/L 21.0-32.0 [facility] Platelets bldOrdered By: Yeny Cid on 11-26-2023 Platelets (Bld) [#/Vol] 265 10*3/uL 150-450 [facility] Serum or plasma calcium stefania urement (mass/volume)Ordered By: Justice Cid on 11-26-2023 Calcium [Mass/Vol] 8.2 mg/dL 8.5-10.1 [facility] Serum or plasma creatinine m easurement (mass/volume)Ordered By: Justice Cid on 11-26-2023 Creatinine [Mass/Vol] 1.16 mg/dL 0.55-1.02 [facility] Comment on above: The validity of the calculated GFR & GFRAA in patients over 70 years has not been determined. Clinical correlation is essential. Serum or plasma urea nitroge n measurement (mass/volume)Ordered By: Justice Cid on 11-26-2023 Urea nitrogen [Mass/Vol] 16 mg/dL 7-18 [facility] Thin prep Papanicolaou smear with manual screeningOrdered By: Justice Cid on 11-26-2023 Thin prep Papanicolaou smear with manual screening 3 5-15 [facility] Absolute lymphocyte countOrd ered By: Sachin Murillo on 11-21-2023 Lymphocytes Auto (Unsp spec) [#/Vol] 0.67 10*3/uL 0.83-4.51 [facility] Basophil percentageOrdered B y: Sachin Murillo on 11-21-2023 Basophils (Bld) [#/Vol] 4.7 10*3/uL 4.4-11.0 [facility] Basophils (Bld) [#/Vol] 2.9 10*3/uL 2.0-7.7 [facility] Basophils/100 WBC (Bld) 0.6 % 0-1 [facility] Basophils/100 WBC (Bld) 62.0 % 47-70 [facility] Basophils/100 WBC (Bld) 0.9 % 0-5 [facility] Eosinophils/100 WBC (Bld) 0.9 % 0-5 [facility] Neutrophils (Bld) [#/Vol] 2.9 10*3/uL 2.0-7.7 [facility] Neutrophils/100 WBC (Bld) 62.0 % 47-70 [facility] WBC (Bld) [#/Vol] 4.7 10*3/uL 4.4-11.0 [facility] Blood erythrocytes count (nu mber/volume)Ordered By: Sachin Murillo on 11-21-2023 RBC (Bld) [#/Vol] 3.54 10*6/uL 4.2-5.4 [facility] Blood hemoglobin measurement (mass/volume)Ordered By: Sachin Murillo on 11-21-2023 Hemoglobin (Bld) [Mass/Vol] 10.2 g/dL 12.0-15.0 [facility] Blood lymphocytes/100 leukoc ytesOrdered By: Sachin Murillo on 11-21-2023 Lymphocytes/100 WBC (Bld) 14.3 % 19-41 [facility] Blood monocytes/100 leukocyt esOrdered By: Sachin Murillo on 11-21-2023 Monocytes/100 WBC (Bld) 18.8 % 0-10 [facility] Blood platelet mean volumeOr dered By: Sachin Murillo on 11-21-2023 Platelet mean volume (Bld) [Entitic vol] 9.7 fL 6.2-12.0 [facility] Determination of erythrocyte mean corpuscular volume (MCV)Ordered By: Sachin Murillo on 11-21-2023 MCV (RBC) [Entitic vol] 87.0 fL 81-99 [facility] Hematocrit Auto (Bld) [Volum e fraction]Ordered By: Sachin Murillo on 11-21-2023 Hematocrit (Bld) [Volume fraction] 30.8 % 37-47 [facility] Laboratory - Hematology and Cell countsOrdered By: Sachin Murillo on 11-21-2023 Erythrocyte distribution width (RBC) [Entitic vol] 48.1 fL 35.1-43.9 [facility] Erythrocyte distribution width (RBC) [Ratio] 15.0 % 11.6-14.6 [facility] Immature granulocytes/100 WBC (Bld) 3.400 % 0.0-0.9 [facility] Comment on above: IG% - Immature Granu locytes (promyelocytes, myelocytes and metamyelocytes) > 1% indicates that a LEFT SHIFT is Present. MCH (RBC) [Entitic mass] 28.8 pg 27.0-32.0 [facility] Nucleated RBC/100 WBC (Bld) [Ratio] 0 % 0-5 [facility] MCHC Auto (RBC) [Mass/Vol]Or dered By: Sachin Murillo on 11-21-2023 MCHC (RBC) [Mass/Vol] 33.1 g/dL 32-36 [facility] No Panel InformationOrdered By: Sachin Murillo on 11-21-2023 28.8 pg 27.0-32.0 [facility] 15.0 % 11.6-14.6 [facility] 48.1 fl 35.1-43.9 [facility] 3.400 % 0.0-0.9 [facility] 0 % 0-5 [facility] Platelets bldOrdered By: Ciro Murillo on 11-21-2023 Platelets (Bld) [#/Vol] 141 10*3/uL 150-450 [facility] Basophil percentageOrdered B y: Sachin Murillo on 11-20-2023 Basophil percentage 94 mg/dL 74-106 [facility] Basophil percentage 137 mmol/L 136-145 [facility] Basophil percentage 3.4 mmol/L 3.5-5.1 [facility] Basophil percentage 106 mmol/L 98-107 [facility] Chloride [Moles/Vol] 106 mmol/L 98-107 [facility] Glucose [Mass/Vol] 94 mg/dL 74-106 [facility] Potassium [Moles/Vol] 3.4 mmol/L 3.5-5.1 [facility] Sodium [Moles/Vol] 137 mmol/L 136-145 [facility] Blood manual differential co mment interpretation (narrative result)Ordered By: Sachin Murillo on 11-20-2023 Manual differential comment Jimy (Bld) [Interp] COMMENT [facility] Comment on above: LYMPHOPENIA. Laboratory - Chemistry and C hemistry - challengeOrdered By: Sachin Murillo on 11-20-2023 CO2 [Moles/Vol] 21.0 mmol/L 21.0-32.0 [facility] Urea nitrogen/Creatinine [Mass ratio] 11.5 mg/mg 10-20 [facility] No Panel InformationOrdered By: Sachin Murillo on 11-20-2023 Estimated Creatinine Clearance Calc 53.47 ml/min [facility] Estimated GFR (MDRD) Amer 83 mL/min >60 [facility] Comment on above: GFR Calc Estimated GFR (MDRD) Non-Af Amer 69 mL/min >60 [facility] Comment on above: Non- GFR Calc 69 mL/min >60 [facility] 83 mL/min >60 [facility] 53.47 ml/min [facility] 11.5 RATIO 10-20 [facility] 21.0 mmol/L 21.0-32.0 [facility] No Panel InformationOrdered By: Roman Hewitt on 01-02-2024 Troponin I High Sensitivity 26 pg/mL 3.0-54.0 [facility] Comment on above: Please Note: New Kim t Units and Gender Specific Reference Ranges. For more information see Policy Stat Procedure [place] High Sensitivity Troponin (TNIH) and attachments. 26 pg/mL 3.0-54.0 [facility] Serum or plasma calcium stefania urement (mass/volume)Ordered By: Sachin Murillo on 11-20-2023 Calcium [Mass/Vol] 8.0 mg/dL 8.5-10.1 [facility] Serum or plasma creatinine m easurement (mass/volume)Ordered By: Sachin Murillo on 11-20-2023 Creatinine [Mass/Vol] 0.87 mg/dL 0.55-1.02 [facility] Comment on above: The validity of the calculated GFR & GFRAA in patients over 70 years has not been determined. Clinical correlation is essential. Serum or plasma urea nitroge n measurement (mass/volume)Ordered By: Sachin Murillo on 11-20-2023 Urea nitrogen [Mass/Vol] 10 mg/dL 7-18 [facility] Thin prep Papanicolaou smear with manual screeningOrdered By: Sachin [facility] on 11-20-2023 Thin prep Papanicolaou smear with manual screening 10 5-15 [facility] Basophil percentageOrdered B y: Sommer White on 11-19-2023 Basophil percentage 5.5 g/dL 6.4-8.2 [facility] Basophil percentage 0.50 mg/dL 0.20-1.00 [facility] Basophil percentage 116 mg/dL <199 [facility] Bilirubin [Mass/Vol] 0.50 mg/dL 0.20-1.00 [facility] Comment on above: For patients on eltr ombopag therapy, use of Dimension [place] TBIL is not recommended. Cholesterol [Mass/Vol] 116 mg/dL <200 [facility] Comment on above: <200 mg/dL Desirable 200-240 mg/dL Borderline >240 mg/dL High Risk Protein [Mass/Vol] 5.5 g/dL 6.4-8.2 [facility] Triglyceride [Mass/Vol] 116 mg/dL <199 [facility] Comment on above: The drugs N-Acetylcy steine and Metamizole may falsely depress this assay.Serum Triglycerides Reference Interval Normal <150 mg/dL Borderline high 150 - 199 mg/dL High 200 - 499 mg/dL Very High > or = 500 mg/dL Laboratory - Chemistry and C hemistry - challengeOrdered By: Sommer Resendiz on 11-19-2023 ALP [Catalytic activity/Vol] 79 U/L 45-117 [facility] ALT [Catalytic activity/Vol] 16 U/L [facility] Free T4 [Mass/Vol] 1.66 ng/dL 0.76-1.46 [facility] Globulin (S) [Mass/Vol] 2.9 g/dL 2.2-4.2 [facility] No Panel InformationOrdered By: Sommer Resendiz 11-19-2023 Thyroid Stimulating Hormone (TSH) 1.42 uIU/mL 0.358-3.74 [facility] 2.9 g/dL 2.2-4.2 [facility] 79 U/L 45- [facility] 16 U/L [facility] 1.42 uIU/mL 0.358-3.74 [facility] 1.66 ng/dL 0.76-1.46 [facility] Serum or plasma albumin stefania urement (mass/volume)Ordered By: Sommer Resendiz on 11-19-2023 Albumin [Mass/Vol] 2.6 g/dL 3.2-5.0 [facility] Serum or plasma albumin/glob ulin mass ratioOrdered By: Sommer Resendiz 11-19-2023 Albumin/Globulin [Mass ratio] 0.9 {ratio} 0.9-2.4 [facility] Serum or plasma cholesterol in HDL measurement (mass/volume)Ordered By: Sommer Resendiz on 11-19-2023 Cholesterol in HDL [Mass/Vol] 30 mg/dL >40 [facility] Comment on above: The drugs N-Acetylcy steine and Metamizole may falsely depress this assay. Reference Range HDL <40 mg/dL Low HDL Cholesterol HDL >or= 60 mg/dL High HDL Cholesterol Serum or plasma cholesterol in VLDL measurement (mass/volume)Ordered By: Sommer Resendiz on 11-19-2023 Cholesterol in VLDL [Mass/Vol] 23 mg/dL 5-40 [facility] Serum or plasma low density lipoprotein (LDL) cholesterol measurement (mass/volume)Ordered By: Sommer Resendiz on 11-19-2023 Cholesterol in LDL [Mass/Vol] 63 mg/dL 0-130 [facility] Thin prep Papanicolaou smear with manual screeningOrdered By: Sommer Resendiz on 11-19-2023 Thin prep Papanicolaou smear with manual screening 17 U/L 15-37 [facility] Absolute lymphocyte countOrd ered By: Michele Kebede on 11-18-2023 Lymphocytes Auto (Unsp spec) [#/Vol] 1.07 10*3/uL 0.83-4.51 [facility] Basophil percentageOrdered B y: Michele Kebede on 11-18-2023 Basophil percentage 0-5 SEEN /hpf 0-5 [facility] Basophils/100 WBC (Bld) 0.4 % 0-1 [facility] Bilirubin [Mass/Vol] 0.40 mg/dL 0.20-1.00 [facility] Comment on above: For patients on eltr ombopag therapy, use of Dimension [place] TBIL is not recommended. Chloride [Moles/Vol] 110 mmol/L 98-107 [facility] Eosinophils/100 WBC (Bld) 0.2 % 0-5 [facility] Glucose [Mass/Vol] 116 mg/dL 74-106 [facility] Comment on above: Fasting Glucose resu lt from 100 to 125 mg/dL suggests IMPAIRED HOMEOSTASIS per A.D.A. criteria. Neutrophils (Bld) [#/Vol] 3.7 10*3/uL 2.0-7.7 [facility] Neutrophils/100 WBC (Bld) 66.4 % 47-70 [facility] Potassium [Moles/Vol] 3.5 mmol/L 3.5-5.1 [facility] Protein [Mass/Vol] 6.5 g/dL 6.4-8.2 [facility] Sodium [Moles/Vol] 140 mmol/L 136-145 [facility] WBC (Bld) [#/Vol] 5.5 10*3/uL 4.4-11.0 [facility] Bilirubin Test strip Ql (U)O rdered By: Michele Kebede on 11-18-2023 Bilirubin Ql (U) Negative Negative [facility] Blood erythrocytes count (nu mber/volume)Ordered By: Michele Kebede on 11-18-2023 RBC (Bld) [#/Vol] 4.56 10*6/uL 4.2-5.4 [facility] Blood hemoglobin measurement (mass/volume)Ordered By: Michele Kebede on 11-18-2023 Hemoglobin (Bld) [Mass/Vol] 12.9 g/dL 12.0-15.0 [facility] Blood lymphocytes/100 leukoc ytesOrdered By: Michele Kebede on 11-18-2023 Lymphocytes/100 WBC (Bld) 19.4 % 19-41 [facility] Blood monocytes/100 leukocyt esOrdered By: Michele Kebede on 11-18-2023 Monocytes/100 WBC (Bld) 12.9 % 0-10 [facility] Blood platelet mean volumeOr dered By: Michele Kebede on 11-18-2023 Platelet mean volume (Bld) [Entitic vol] 10.3 fL 6.2-12.0 [facility] Determination of erythrocyte mean corpuscular volume (MCV)Ordered By: Michele Kebede on 11-18-2023 MCV (RBC) [Entitic vol] 85.7 fL 81-99 [facility] Hematocrit Auto (Bld) [Volum e fraction]Ordered By: Michele Kebede on 11-18-2023 Hematocrit (Bld) [Volume fraction] 39.1 % 37-47 [facility] Ketones Test strip Ql (U)Ord ered By: Michele Kebede on 11-18-2023 Ketones Ql (U) 5 mg/dl Negative [facility] Laboratory - Chemistry and C hemistry - challengeOrdered By: Michele Kebede on 11-18-2023 ALP [Catalytic activity/Vol] 93 U/L 45-117 [facility] ALT [Catalytic activity/Vol] 18 U/L 13-56 [facility] CO2 [Moles/Vol] 22.0 mmol/L 21.0-32.0 [facility] Globulin (S) [Mass/Vol] 3.4 g/dL 2.2-4.2 [facility] Urea nitrogen/Creatinine [Mass ratio] 12.2 mg/mg 10-20 [facility] Laboratory - Chemistry and C hemistry - challengeOrdered By: Sommer Resendiz on 11-18-2023 Magnesium [Mass/Vol] 1.8 mg/dL 1.6-2.6 [facility] Laboratory - Hematology and Cell countsOrdered By: Michele Kebede on 11-18-2023 Erythrocyte distribution width (RBC) [Entitic vol] 46.5 fL 35.1-43.9 [facility] Erythrocyte distribution width (RBC) [Ratio] 14.8 % 11.6-14.6 [facility] Immature granulocytes/100 WBC (Bld) 0.700 % 0.0-0.9 [facility] Comment on above: IG% - Immature Granu locytes (promyelocytes, myelocytes and metamyelocytes) > 1% indicates that a LEFT SHIFT is Present. MCH (RBC) [Entitic mass] 28.3 pg 27.0-32.0 [facility] Nucleated RBC/100 WBC (Bld) [Ratio] 0 % 0-5 [facility] MCHC Auto (RBC) [Mass/Vol]Or dered By: Michele Kebede on 11-18-2023 MCHC (RBC) [Mass/Vol] 33.0 g/dL 32-36 [facility] Mucus LM Ql (Urine sed)Order ed By: Michele Kebede on 11-18-2023 Mucus Ql (Urine sed) 0 SEEN /hpf [facility] Nitrite Test strip Ql (U)Ord ered By: Michele Kebede on 11-18-2023 Nitrite Ql (U) Negative Negative [facility] No Panel InformationOrdered By: Michele Kebede on 11-18-2023 Estimated Creatinine Clearance Calc 48.26 ml/min [facility] Estimated GFR (MDRD) Amer 72 mL/min >60 [facility] Comment on above: GFR Calc Estimated GFR (MDRD) Non-Af Amer 59 mL/min >60 [facility] Comment on above: Non- GFR Calc Troponin I High Sensitivity 60 pg/mL 3.0-54.0 [facility] Comment on above: Please Note: New Kim t Units and Gender Specific Reference Ranges. For more information see Policy Stat Procedure [place] High Sensitivity Troponin (TNIH) and attachments. No Panel InformationOrdered By: Sommer Resendiz on 11-18-2023 1.8 mg/dL 1.6-2.6 [facility] Platelets bldOrdered By: Randee smith Delio on 11-18-2023 Platelets (Bld) [#/Vol] 123 10*3/uL 150-450 [facility] Protein Test strip Ql (U)Ord ered By: Michele Kebede on 11-18-2023 Protein Ql (U) Negative Negative [facility] Serum or plasma albumin stefania urement (mass/volume)Ordered By: Michele Kebede on 11-18-2023 Albumin [Mass/Vol] 3.1 g/dL 3.2-5.0 [facility] Serum or plasma albumin/glob ulin mass ratioOrdered By: Michele Kebede on 11-18-2023 Albumin/Globulin [Mass ratio] 0.9 {ratio} 0.9-2.4 [facility] Serum or plasma calcium stefania urement (mass/volume)Ordered By: Michele Kebede on 11-18-2023 Calcium [Mass/Vol] 8.0 mg/dL 8.5-10.1 [facility] Serum or plasma creatinine m easurement (mass/volume)Ordered By: Michele Kebede on 11-18-2023 Creatinine [Mass/Vol] 0.99 mg/dL 0.55-1.02 [facility] Comment on above: The validity of the calculated GFR & GFRAA in patients over 70 years has not been determined. Clinical correlation is essential. Serum or plasma urea nitroge n measurement (mass/volume)Ordered By: Michele Kebede on 11-18-2023 Urea nitrogen [Mass/Vol] 12 mg/dL 7-18 [facility] Squamous epithelial cells de tection in urine sediment by light microscopyOrdered By: Michele Kebede on 11-18-2023 Epithelial cells.squamous LM Ql (Urine sed) 5-10 SEEN /hpf 5-10 [facility] Stool gastrointestinal hemog lobin detection by immunologic methodOrdered By: Michele Kebede on 11-18-2023 Lower GI hemoglobin IA Ql (Stl) [facility] Lower GI hemoglobin IA Ql (Stl) [facility] Thin prep Papanicolaou smear with manual screeningOrdered By: Michele Kebede on 11-18-2023 Thin prep Papanicolaou smear with manual screening 17 U/L 15-37 [facility] Thin prep Papanicolaou smear with manual screening 8 5-15 [facility] Urine blood detectionOrdered By: Michele Kebede on 11-18-2023 RBC Ql (U) 25 /ul Negative [facility] RBC Ql (U) 0-5 SEEN /hpf 0-5 [facility] Urine clarityOrdered By: Randee Kebeed on 11-18-2023 Clarity (U) Clear Clear [facility] Urine color determinationOrd ered By: Michele Kebede on 11-18-2023 Color (U) Yellow Yellow [facility] Urine glucose detectionOrder ed By: Michele Kebede on 11-18-2023 Glucose Ql (U) Normal mg/dl Normal [facility] Urine leukocyte esterase det ection by dipstickOrdered By: Michele Kebede on 11-18-2023 Leukocyte esterase Test strip Ql (U) 25 /ul Negative [facility] Urine pHOrdered By: Michele gutierrez on 11-18-2023 pH (U) 6.0 [pH] 5.0 - 8.0 [facility] Urine sediment bacteria coun t by microscopy (number/high power field)Ordered By: Michele Kebede on 11-18-2023 Bacteria LM.HPF (Urine sed) [#/Area] 1 /[HPF] None Seen [facility] Urine specific gravity measu rementOrdered By: Michele Kebede on 11-18-2023 Specific gravity (U) [Rel density] 1.015 1.002-1.03 0 [facility] Urobilinogen Auto test strip Ql (U)Ordered By: Michele Kebede on 11-18-2023 Urobilinogen Ql (U) Normal mg/dl Normal [facility] Absolute lymphocyte countOrd ered By: Sommer Resendiz on 11-16-2023 Lymphocytes Auto (Unsp spec) [#/Vol] 0.96 10*3/uL 0.83-4.51 [facility] Basophil percentageOrdered B y: on 11-16-2023 Basophil percentage 73 mg/dL 74-106 [facility] Basophil percentage 5.9 g/dL 6.4-8.2 [facility] Basophil percentage 0.40 mg/dL 0.20-1.00 [facility] Basophil percentage 135 mmol/L 136-145 [facility] Basophil percentage 3.6 mmol/L 3.5-5.1 [facility] Basophil percentage 107 mmol/L 98-107 [facility] Basophils (Bld) [#/Vol] 3.8 10*3/uL 4.4-11.0 [facility] Basophils (Bld) [#/Vol] 2.2 10*3/uL 2.0-7.7 [facility] Basophils/100 WBC (Bld) 0.3 % 0-1 [facility] Basophils/100 WBC (Bld) 57.7 % 47-70 [facility] Bilirubin [Mass/Vol] 0.40 mg/dL 0.20-1.00 [facility] Comment on above: For patients on eltr ombopag therapy, use of Dimension [place] TBIL is not recommended. Chloride [Moles/Vol] 107 mmol/L 98-107 [facility] Eosinophils/100 WBC (Bld) 0.3 % 0-5 [facility] Glucose [Mass/Vol] 73 mg/dL 74-106 [facility] Neutrophils (Bld) [#/Vol] 2.2 10*3/uL 2.0-7.7 [facility] Neutrophils/100 WBC (Bld) 57.7 % 47-70 [facility] Potassium [Moles/Vol] 3.6 mmol/L 3.5-5.1 [facility] Protein [Mass/Vol] 5.9 g/dL 6.4-8.2 [facility] Sodium [Moles/Vol] 135 mmol/L 136-145 [facility] WBC (Bld) [#/Vol] 3.8 10*3/uL 4.4-11.0 [facility] Blood erythrocytes count (nu mber/volume)Ordered By: White on 11-16-2023 RBC (Bld) [#/Vol] 4.20 10*6/uL 4.2-5.4 [facility] Blood hemoglobin measurement (mass/volume)Ordered By: White on 11-16-2023 Hemoglobin (Bld) [Mass/Vol] 12.2 g/dL 12.0-15.0 [facility] Blood lymphocytes/100 leukoc ytesOrdered By: White on 11-16-2023 Lymphocytes/100 WBC (Bld) 25.5 % 19-41 [facility] Blood monocytes/100 leukocyt esOrdered By: Martín on 11-16-2023 Monocytes/100 WBC (Bld) 15.7 % 0-10 [facility] Blood platelet mean volumeOr dered By: Sommer Martín on 11-16-2023 Platelet mean volume (Bld) [Entitic vol] 10.1 fL 6.2-12.0 [facility] Determination of erythrocyte mean corpuscular volume (MCV)Ordered By: Sommer Resendiz on 11-16-2023 MCV (RBC) [Entitic vol] 88.3 fL 81-99 [facility] Hematocrit Auto (Bld) [Volum e fraction]Ordered By: Sommer Martín on 11-16-2023 Hematocrit (Bld) [Volume fraction] 37.1 % 37-47 [facility] Laboratory - Chemistry and C hemistry - challengeOrdered By: Sommer Martín on 11-16-2023 ALP [Catalytic activity/Vol] 90 U/L 45-117 [facility] ALT [Catalytic activity/Vol] 23 U/L 13-56 [facility] CO2 [Moles/Vol] 21.0 mmol/L 21.0-32.0 [facility] Globulin (S) [Mass/Vol] 3.0 g/dL 2.2-4.2 [facility] Urea nitrogen/Creatinine [Mass ratio] 26.4 mg/mg 10-20 [facility] Laboratory - Hematology and Cell countsOrdered By: Sommer Martín on 11-16-2023 Erythrocyte distribution width (RBC) [Entitic vol] 48.2 fL 35.1-43.9 [facility] [facility] Erythrocyte distribution width (RBC) [Ratio] 14.8 % 11.6-14.6 [facility] Immature granulocytes/100 WBC (Bld) 0.500 % 0.0-0.9 [facility] Comment on above: IG% - Immature Granu locytes (promyelocytes, myelocytes and metamyelocytes) > 1% indicates that a LEFT SHIFT is Present. MCH (RBC) [Entitic mass] 29.0 pg 27.0-32.0 [facility] Nucleated RBC/100 WBC (Bld) [Ratio] 0 % 0-5 [facility] [Mass/Vol]Or dered By: Sommer Resendiz on 11-16-2023 MCHC (RBC) [Mass/Vol] 32.9 g/dL 32-36 [facility] No Panel InformationOrdered By: Sommer Resendiz on 11-16-2023 Estimated Creatinine Clearance Calc 28.68 ml/min [facility] Estimated GFR (MDRD) Amer 41 mL/min >60 [facility] Comment on above: GFR Calc Estimated GFR (MDRD) Non-Af Amer 34 mL/min >60 [facility] Comment on above: Non- GFR Calc 29.0 pg 27.0-32.0 [facility] 14.8 % 11.6-14.6 [facility] 48.2 fl 35.1-43.9 [facility] 0.500 % 0.0-0.9 [facility] 0 % 0-5 [facility] 34 mL/min >60 [facility] 41 mL/min >60 [facility] 28.68 ml/min [facility] 26.4 RATIO 10-20 [facility] 3.0 g/dL 2.2-4.2 [facility] 90 U/L 45-117 [facility] 23 U/L 13-56 [facility] 21.0 mmol/L 21.0-32.0 [facility] Platelets bldOrdered By: Julian Resendiz on 11-16-2023 Platelets (Bld) [#/Vol] 136 10*3/uL 150-450 [facility] Serum or plasma albumin stefania urement (mass/volume)Ordered By: Sommer Resendiz on 11-16-2023 Albumin [Mass/Vol] 2.9 g/dL 3.2-5.0 [facility] Serum or plasma albumin/glob ulin mass ratioOrdered By: Sommer Reesndiz on 11-16-2023 Albumin/Globulin [Mass ratio] 1.0 {ratio} 0.9-2.4 [facility] Serum or plasma calcium stefania urement (mass/volume)Ordered By: Sommer Resendiz on 11-16-2023 Calcium [Mass/Vol] 7.4 mg/dL 8.5-10.1 [facility] Serum or plasma creatinine m easurement (mass/volume)Ordered By: Sommer Resendiz on 11-16-2023 Creatinine [Mass/Vol] 1.59 mg/dL 0.55-1.02 [facility] Comment on above: The validity of the calculated GFR & GFRAA in patients over 70 years has not been determined. Clinical correlation is essential. Serum or plasma urea nitroge n measurement (mass/volume)Ordered By: Sommer Resendiz on 11-16-2023 Urea nitrogen [Mass/Vol] 42 mg/dL 7-18 [facility] Thin prep Papanicolaou smear with manual screeningOrdered By: Sommer Resendiz on 11-16-2023 Thin prep Papanicolaou smear with manual screening 28 U/L 15-37 [facility] Thin prep Papanicolaou smear with manual screening 7 5-15 [facility] Absolute lymphocyte countOrd ered By: Michele Kebede on 11-15-2023 Lymphocytes Auto (Unsp spec) [#/Vol] 0.70 10*3/uL 0.83-4.51 [facility] Basophil percentageOrdered B y: Michele Kebede on 11-15-2023 Basophil percentage 5-10 SEEN /hpf 0-5 [facility] Basophils/100 WBC (Bld) 0.2 % 0-1 [facility] Bilirubin [Mass/Vol] 0.30 mg/dL 0.20-1.00 [facility] Comment on above: For patients on eltr ombopag therapy, use of Dimension [place] TBIL is not recommended. Chloride [Moles/Vol] 97 mmol/L 98-107 [facility] Eosinophils/100 WBC (Bld) 0.0 % 0-5 [facility] Glucose [Mass/Vol] 80 mg/dL 74-106 [facility] Neutrophils (Bld) [#/Vol] 3.4 10*3/uL 2.0-7.7 [facility] Neutrophils/100 WBC (Bld) 70.4 % 47-70 [facility] Potassium [Moles/Vol] 3.9 mmol/L 3.5-5.1 [facility] Protein [Mass/Vol] 6.9 g/dL 6.4-8.2 [facility] Sodium [Moles/Vol] 130 mmol/L 136-145 [facility] WBC (Bld) [#/Vol] 4.9 10*3/uL 4.4-11.0 [facility] Bilirubin Test strip Ql (U)O rdered By: Michele Kebede on 11-15-2023 Bilirubin Ql (U) Negative Negative [facility] Blood erythrocytes count (nu mber/volume)Ordered By: Michele Kebede on 11-15-2023 RBC (Bld) [#/Vol] 4.74 10*6/uL 4.2-5.4 [facility] Blood hemoglobin measurement (mass/volume)Ordered By: Michele Kebede on 11-15-2023 Hemoglobin (Bld) [Mass/Vol] 13.7 g/dL 12.0-15.0 [facility] Blood lymphocytes/100 leukoc ytesOrdered By: Michele Kebede on 11-15-2023 Lymphocytes/100 WBC (Bld) 14.3 % 19-41 [facility] Blood monocytes/100 leukocyt esOrdered By: Michele Kebede on 11-15-2023 Monocytes/100 WBC (Bld) 14.5 % 0-10 [facility] Blood platelet mean volumeOr dered By: Michele Kebede on 11-15-2023 Platelet mean volume (Bld) [Entitic vol] 10.1 fL 6.2-12.0 [facility] Calcium oxalate crystals det ection in urine sediment by light microscopyOrdered By: Michele Kebede on 11-15-2023 Calcium oxalate crystals LM Ql (Urine sed) RARE /hpf [facility] Determination of erythrocyte mean corpuscular volume (MCV)Ordered By: Michele Kebede on 11-15-2023 MCV (RBC) [Entitic vol] 86.3 fL 81-99 [facility] Hematocrit Auto (Bld) [Volum e fraction]Ordered By: Michele Kebede on 11-15-2023 Hematocrit (Bld) [Volume fraction] 40.9 % 37-47 [facility] Ketones Test strip Ql (U)Ord ered By: Michele Kebede on 11-15-2023 Ketones Ql (U) 5 mg/dl Negative [facility] Laboratory - Chemistry and C hemistry - challengeOrdered By: Michele Kebede on 11-15-2023 ALP [Catalytic activity/Vol] 104 U/L 45-117 [facility] ALT [Catalytic activity/Vol] 27 U/L 13-56 [facility] CO2 [Moles/Vol] 21.0 mmol/L 21.0-32.0 [facility] Globulin (S) [Mass/Vol] 3.6 g/dL 2.2-4.2 [facility] Lipase [Catalytic activity/Vol] 60 U/L 13-75 [facility] Comment on above: Please note:LIPASE r evised reference range effective 23. New Lipase methodology. Expected to produce lower values than the previous assay method. NEW Reference Range: 13 - 75 U/L Urea nitrogen/Creatinine [Mass ratio] 25.5 mg/mg 10-20 [facility] Laboratory - Hematology and Cell countsOrdered By: Michele Kebede on 11-15-2023 Erythrocyte distribution width (RBC) [Entitic vol] 46.6 fL 35.1-43.9 [facility] Erythrocyte distribution width (RBC) [Ratio] 14.6 % 11.6-14.6 [facility] Immature granulocytes/100 WBC (Bld) 0.600 % 0.0-0.9 [facility] Comment on above: IG% - Immature Granu locytes (promyelocytes, myelocytes and metamyelocytes) > 1% indicates that a LEFT SHIFT is Present. MCH (RBC) [Entitic mass] 28.9 pg 27.0-32.0 [facility] Nucleated RBC/100 WBC (Bld) [Ratio] 0 % 0-5 [facility] Laboratory - Microbiology an d Antimicrobial susceptibilityOrdered By: Michele Kebede on 11-15-2023 SARS-CoV-2 (COVID-19) RNA JAYDON+probe Ql (Unsp spec) Influenzae A [facility] MCHC Auto (RBC) [Mass/Vol]Or dered By: Michele Kebede on 11-15-2023 MCHC (RBC) [Mass/Vol] 33.5 g/dL 32-36 [facility] Mucus LM Ql (Urine sed)Order ed By: Michele Kebede on 11-15-2023 Mucus Ql (Urine sed) 0 SEEN /hpf [facility] Nitrite Test strip Ql (U)Ord ered By: Michele Kebede on 11-15-2023 Nitrite Ql (U) Negative Negative [facility] No Panel InformationOrdered By: Michele Kebede on 11-15-2023 Influenzae A [facility] Influenzae A [facility] Estimated Creatinine Clearance Calc 19.03 ml/min [facility] Estimated GFR (MDRD) Amer 24 mL/min >60 [facility] Comment on above: GFR Calc Estimated GFR (MDRD) Non-Af Amer 20 mL/min >60 [facility] Comment on above: Non- GFR Calc 60 U/L 13-75 [facility] Platelets bldOrdered By: Randee Kebede on 11-15-2023 Platelets (Bld) [#/Vol] 164 10*3/uL 150-450 [facility] Protein Test strip Ql (U)Ord ered By: Michele Kebede on 11-15-2023 Protein Ql (U) 15 mg/dl Negative [facility] Serum or plasma albumin stefania urement (mass/volume)Ordered By: Michele Kebede on 11-15-2023 Albumin [Mass/Vol] 3.3 g/dL 3.2-5.0 [facility] Serum or plasma albumin/glob ulin mass ratioOrdered By: Michele Kebede on 11-15-2023 Albumin/Globulin [Mass ratio] 0.9 {ratio} 0.9-2.4 [facility] Serum or plasma calcium stefania urement (mass/volume)Ordered By: Michele Kebede on 11-15-2023 Calcium [Mass/Vol] 8.1 mg/dL 8.5-10.1 [facility] Serum or plasma creatinine m easurement (mass/volume)Ordered By: Michele Kebede on 11-15-2023 Creatinine [Mass/Vol] 2.51 mg/dL 0.55-1.02 [facility] Comment on above: The validity of the calculated GFR & GFRAA in patients over 70 years has not been determined. Clinical correlation is essential. Serum or plasma urea nitroge n measurement (mass/volume)Ordered By: Michele Kebede on 11-15-2023 Urea nitrogen [Mass/Vol] 64 mg/dL 7-18 [facility] Serum procalcitonin measurem entOrdered By: Sommer Resendiz on 11-15-2023 Procalcitonin [Mass/Vol] 0.24 ng/mL 0.00-0.09 [facility] Comment on above: A procalcitonin (PCT ) level above 2.0 ng/mL on the first day of ICU admission is associated with a high risk for progression to severe sepsis and/or septic shock. A PCT level below 0.5 ng/mL on the first day of ICU admission is associated with a low risk for progression to severe and/or septic shock. Note: Concentrations <0.5 ng/mL do not exclude an infection on account of localized infections (without systemic signs) which can be associated with such low concentrations, or a systemic infection in its initial stages (<6 hours). Furthermore, increased procalcitonin can occur without infection. PCT concentrations between 0.5 and 2.0 ng/mL should be interpreted taking into account the patient's history. It is recommended to retest PCT within 6-24 hours if any concentrations <2 ng/mL are obtained. Squamous epithelial cells de tection in urine sediment by light microscopyOrdered By: Michele Kebede on 11-15-2023 Epithelial cells.squamous LM Ql (Urine sed) 5-10 SEEN /hpf 5-10 [facility] Thin prep Papanicolaou smear with manual screeningOrdered By: Michele Kebede on 11-15-2023 Thin prep Papanicolaou smear with manual screening 34 U/L 15-37 [facility] Thin prep Papanicolaou smear with manual screening 12 5-15 [facility] Urine blood detectionOrdered By: Michele Kebede on 11-15-2023 RBC Ql (U) 25 /ul Negative [facility] RBC Ql (U) 0-5 SEEN /hpf 0-5 [facility] Urine clarityOrdered By: Randee Kebede on 11-15-2023 Clarity (U) Sl. Cloudy Clear [facility] Urine color determinationOrd ered By: Michele Kebede on 11-15-2023 Color (U) Yellow Yellow [facility] Urine glucose detectionOrder ed By: Michele Kebede on 11-15-2023 Glucose Ql (U) Normal mg/dl Normal [facility] Urine leukocyte esterase det ection by dipstickOrdered By: Michele Kebede on 11-15-2023 Leukocyte esterase Test strip Ql (U) 100 /ul Negative [facility] Urine pHOrdered By: Michele gutierrez on 11-15-2023 pH (U) 5.0 [pH] 5.0 - 8.0 [facility] Urine sediment bacteria coun t by microscopy (number/high power field)Ordered By: Michele Keebde on 11-15-2023 Bacteria LM.HPF (Urine sed) [#/Area] RARE /hpf None Seen [facility] Urine specific gravity measu rementOrdered By: Michele Kebede on 11-15-2023 Specific gravity (U) [Rel density] 1.015 1.002-1.03 0 [facility] Urobilinogen Auto test strip Ql (U)Ordered By: Michele Kebede on 11-15-2023 Urobilinogen Ql (U) Normal mg/dl Normal [facility] IR ARTERIOGRAM EXTREMITY HUNG ATERAL LOWERon 11-13-2023 IR ARTERIOGRAM EXTREMITY BILATERAL LOWER ORIGINAL Images acquired, not reported on this accession number. Normal [facility] ([place] .Auto Diffon 10-26-2023 Basophil, Absolute 0.1 10 3/mcL Normal 0.0-0.3 [facility] ([place]) Comment on above: Performed By: #### A KAILA, ADIFF, GFR, BMP, CBC #### [address] [address] Basophils/100 WBC (Bld) 0.8 % Normal 0.0-2.5 [facility] ([place]) Comment on above: Performed By: #### A KAILA, ADIFF, GFR, BMP, CBC #### [address] [address] Eosinophil, Absolute 0.1 10 3/mcL Normal 0.0-0.7 [facility] ([place] Comment on above: Performed By: #### A KAILA, ADIFF, GFR, BMP, CBC #### [address] [address] Eosinophils/100 WBC (Bld) 1.5 % Normal 0.0-6.0 [facility] ([place] Comment on above: Performed By: #### A KAILA, ADIFF, GFR, BMP, CBC #### [address] [address] Lymphocyte, Absolute 1.3 10 3/mcL Normal 0.9-4.3 [facility] ([place] Comment on above: Performed By: #### A KAILA, ADIFF, GFR, BMP, CBC #### [address] [address] Lymphocytes/100 WBC (Bld) 16.6 % Low 20.0-40.0 [facility] ([place] Comment on above: Performed By: #### A KAILA, ADIFF, GFR, BMP, CBC #### [address] [address] Monocyte, Absolute 0.6 10 3/mcL Normal 0.1-1.4 [facility] ([place] Comment on above: Performed By: #### A KAILA, ADIFF, GFR, BMP, CBC #### [address] [address] Monocytes/100 WBC (Bld) 7.8 % Normal 2.0-13.0 [facility] ([place] Comment on above: Performed By: #### A KAILA, ADIFF, GFR, BMP, CBC #### [address] [address] Neutrophils/100 WBC (Bld) 73.3 % Normal 50.0-75.0 [facility] ([place]) Comment on above: Performed By: #### A KAILA, ADIFF, GFR, BMP, CBC #### [address] [address] .GFRon 10-26-2023 GFR 53 ml/min/1.73sqm Normal [facility] ([place]) Comment on above: Result Comment: GFR Population mean for , Non- Americans Ages 20-29 = 116 mL/min/1.73 sq.m. Ages 30-39 = 107 mL/min/1.73 sq.m. Ages 40-49 = 99 mL/min/1.73 sq.m. Ages 50-59 = 93 mL/min/1.73 sq.m. Ages 60-69 = 85 mL/min/1.73 sq.m. Ages 70+ = 75 mL/min/1.73 sq.m. Chronic Kidney Disease: Less than 60 mL/min/1.73 square meters End Stage Renal Disease: Less than 15 mL/min/1.73 square meters Performed By: #### A KAILA, ADIFF, GFR, BMP, CBC #### [address] [address] GFR Non- 44 ml/min/1.73sqm Normal [facility] ([place]) Comment on above: Result Comment: GFR Population mean for , Non- Americans Ages 20-29 = 116 mL/min/1.73 sq.m. Ages 30-39 = 107 mL/min/1.73 sq.m. Ages 40-49 = 99 mL/min/1.73 sq.m. Ages 50-59 = 93 mL/min/1.73 sq.m. Ages 60-69 = 85 mL/min/1.73 sq.m. Ages 70+ = 75 mL/min/1.73 sq.m. Chronic Kidney Disease: Less than 60 mL/min/1.73 square meters End Stage Renal Disease: Less than 15 mL/min/1.73 square meters Performed By: #### A KAILA, ADIFF, GFR, BMP, CBC #### [place] [address] .NEUABSon 10-26-2023 Neutrophil, Absolute 5.7 10 3/mcL Normal 2.3-8.1 [facility] ([place]) Comment on above: Performed By: #### A KAILA, ADIFF, GFR, BMP, CBC #### [place] [id number] BMPon 10-26-2023 BUN/Creatinine Ratio 25.6 ratio High 10.0-22.0 [facility] ([place]) Comment on above: Order Comment: hemol yzed talk to noa Performed By: #### A KAILA, ADIFF, GFR, BMP, CBC #### [address] [address] Calcium [Mass/Vol] 7.7 mg/dL Low 8.7-10.4 [facility] ([place]) Comment on above: Order Comment: hemol yzed talk to noa Performed By: #### A KAILA, ADIFF, GFR, BMP, CBC #### [address] [address] Chloride [Moles/Vol] 114 mmol/L High 98-110 [facility] ([place] Comment on above: Order Comment: hemol yzed talk to noa Performed By: #### A KAILA, ADIFF, GFR, BMP, CBC #### [address] [address] CO2 [Moles/Vol] 29 mmol/L Normal 22-32 [facility] ([place] Comment on above: Order Comment: hemol yzed talk to noa Performed By: #### A KAILA, ADIFF, GFR, BMP, CBC #### [address] [address] Creatinine [Mass/Vol] 1.21 mg/dL High 0.50-1.20 [facility] ([place]) Comment on above: Order Comment: hemol yzed talk to noa Performed By: #### A KAILA, ADIFF, GFR, BMP, CBC #### [address] [address] Electrolyte Balance -1.0 mEq/L Low 4.0-15.0 [facility] ([place]) Comment on above: Order Comment: hemol yzed talk to noa Performed By: #### A KAILA, ADIFF, GFR, BMP, CBC #### [address] [address] Potassium [Moles/Vol] 3.9 mmol/L Normal 3.5-5.0 [facility] ([place] Comment on above: Order Comment: hemol yzed talk to noa Performed By: #### A KAILA, ADIFF, GFR, BMP, CBC #### [address] [address] Sodium [Moles/Vol] 142 mmol/L Normal 136-145 [facility] ([place] Comment on above: Order Comment: hemol yzed talk to noa Performed By: #### A KAILA, ADIFF, GFR, BMP, CBC #### [address] [address] Glucose [Mass/Vol] 78 mg/dL Low 82-115 [facility] ([place] Comment on above: Order Comment: hemol yzed talk to noa Performed By: #### A KAILA, ADIFF, GFR, BMP, CBC #### [place] [address] Urea nitrogen [Mass/Vol] 31.0 mg/dL High 8.0-22.0 [facility] ([place] Comment on above: Order Comment: hemol yzed talk to noa Performed By: #### A KAILA, ADIFF, GFR, BMP, CBC #### [place] [id number] CBCon 10-26-2023 Erythrocyte distribution width (RBC) [Ratio] 14.9 % Normal 11.5-15.5 [facility] ([place] Comment on above: Performed By: #### A KAILA, ADIFF, GFR, BMP, CBC #### [place] [address] Hematocrit (Bld) [Volume fraction] 40.0 % Normal 34.0-46.0 [facility] ([place] Comment on above: Performed By: #### A KAILA, ADIFF, GFR, BMP, CBC #### [place] [address] Hgb 13.7 G/dL Normal 12.0-16.0 [facility] ([place] Comment on above: Performed By: #### A KAILA, ADIFF, GFR, BMP, CBC #### [place] [address] MCH (RBC) [Entitic mass] 29.9 pg Normal 27.0-33.0 [facility] ([place] Comment on above: Performed By: #### A KAILA, ADIFF, GFR, BMP, CBC #### [place] [address] MCHC 34.2 G/dL Normal 32.0-36.0 [facility] ([place] Comment on above: Performed By: #### A KAILA, ADIFF, GFR, BMP, CBC #### [place] [address] MCV (RBC) [Entitic vol] 87.4 fL Normal 80.0-99.0 [facility] ([place]) Comment on above: Performed By: #### A KAILA, ADIFF, GFR, BMP, CBC #### [facility] [address] [place] [address] Platelet 188 10 3/mcL Normal 150-450 [facility] ([place] Comment on above: Performed By: #### A KAILA, ADIFF, GFR, BMP, CBC #### [facility] [address] [place] [address] Platelet mean volume (Bld) [Entitic vol] 7.5 fL Normal 6.6-10.5 [facility] ([place] Comment on above: Performed By: #### A KAILA, ADIFF, GFR, BMP, CBC #### [facility] [address] [place] [address] RBC 4.57 10 6/mcL Normal 4.10-5.30 [facility] ([place] Comment on above: Performed By: #### A KAILA, ADIFF, GFR, BMP, CBC #### [facility] [address] [place] [address] WBC 7.8 10 3/mcL Normal 4.5-10.8 [facility] ([place] Comment on above: Performed By: #### A KAILA, ADIFF, GFR, BMP, CBC #### [address] [address] * Body fluid crystals type b y light microscopyOrdered By: Kai Jacobson on 10-22-2023 Crystals LM Nom (Body fld) See PATH REV [facility] Comment on above: CRYSTAL RESULT IS PRELIMINARY. SEE PATH REVIEW FOR FINAL REPORT. Review by pathologistOrdered By: Kai Jacobson on 10-22-2023 Pathologist review Jimy (Unsp spec) [Interp] Reviewed [facility] Comment on above: Previous reported re sult: Will follow Edited by: PELON on 10/23/23:1346Negative for Mann Thomas M.D. 10/23/23 AMENDED REPORT 10/23/23 1346 PATH REV previously reported as: Will follow Specimen source identificati on of body fluidOrdered By: Kai Jacobson on 10-22-2023 Specimen source Nom (Body fld) SYNOVIAL [facility] Absolute lymphocyte countOrd ered By: ED PROVIDER on 10-05-2023 Lymphocytes Auto (Unsp spec) [#/Vol] 1.62 10*3/uL 0.83-4.51 [facility] Basophil percentageOrdered B y: ED PROVIDER on 10-05-2023 Basophil percentage 108 mg/dL 74-106 [facility] Basophil percentage 142 mmol/L 136-145 [facility] Basophil percentage 4.3 mmol/L 3.5-5.1 [facility] Basophil percentage 110 mmol/L 98-107 [facility] Basophils (Bld) [#/Vol] 7.2 10*3/uL 4.4-11.0 [facility] Basophils (Bld) [#/Vol] 4.8 10*3/uL 2.0-7.7 [facility] Basophils/100 WBC (Bld) 0.7 % 0-1 [facility] Basophils/100 WBC (Bld) 66.3 % 47-70 [facility] Basophils/100 WBC (Bld) 2.9 % 0-5 [facility] Chloride [Moles/Vol] 110 mmol/L 98-107 [facility] Eosinophils/100 WBC (Bld) 2.9 % 0-5 [facility] Glucose [Mass/Vol] 108 mg/dL 74-106 [facility] Comment on above: Fasting Glucose resu lt from 100 to 125 mg/dL suggests IMPAIRED HOMEOSTASIS per A.D.A. criteria. Neutrophils (Bld) [#/Vol] 4.8 10*3/uL 2.0-7.7 [facility] Neutrophils/100 WBC (Bld) 66.3 % 47-70 [facility] Potassium [Moles/Vol] 4.3 mmol/L 3.5-5.1 [facility] Sodium [Moles/Vol] 142 mmol/L 136-145 [facility] WBC (Bld) [#/Vol] 7.2 10*3/uL 4.4-11.0 [facility] Blood erythrocytes count (nu mber/volume)Ordered By: ED PROVIDER on 10-05-2023 RBC (Bld) [#/Vol] 5.19 10*6/uL 4.2-5.4 [facility] Blood hemoglobin measurement (mass/volume)Ordered By: ED PROVIDER on 10-05-2023 Hemoglobin (Bld) [Mass/Vol] 14.9 g/dL 12.0-15.0 [facility] Blood lymphocytes/100 leukoc ytesOrdered By: ED PROVIDER on 10-05-2023 Lymphocytes/100 WBC (Bld) 22.4 % 19-41 [facility] Blood monocytes/100 leukocyt esOrdered By: ED PROVIDER on 10-05-2023 Monocytes/100 WBC (Bld) 7.3 % 0-10 [facility] Blood platelet mean volumeOr dered By: ED PROVIDER on 10-05-2023 Platelet mean volume (Bld) [Entitic vol] 9.6 fL 6.2-12.0 [facility] Determination of erythrocyte mean corpuscular volume (MCV)Ordered By: ED PROVIDER on 10-05-2023 MCV (RBC) [Entitic vol] 88.8 fL 81-99 [facility] Hematocrit Auto (Bld) [Volum e fraction]Ordered By: ED PROVIDER on 10-05-2023 Hematocrit (Bld) [Volume fraction] 46.1 % 37-47 [facility] Laboratory - Chemistry and C hemistry - challengeOrdered By: Yasmani Haynes on 10-05-2023 Magnesium [Mass/Vol] 2.0 mg/dL 1.6-2.6 [facility] Laboratory - Chemistry and C hemistry - challengeOrdered By: ED PROVIDER on 10-05-2023 CO2 [Moles/Vol] 27.0 mmol/L 21.0-32.0 [facility] Urea nitrogen/Creatinine [Mass ratio] 20.7 mg/mg 10-20 [facility] Laboratory - Hematology and Cell countsOrdered By: ED PROVIDER on 10-05-2023 Erythrocyte distribution width (RBC) [Entitic vol] 45.3 fL 35.1-43.9 [facility] Erythrocyte distribution width (RBC) [Ratio] 14.0 % 11.6-14.6 [facility] Immature granulocytes/100 WBC (Bld) 0.400 % 0.0-0.9 [facility] Comment on above: IG% - Immature Granu locytes (promyelocytes, myelocytes and metamyelocytes) > 1% indicates that a LEFT SHIFT is Present. MCH (RBC) [Entitic mass] 28.7 pg 27.0-32.0 [facility] Nucleated RBC/100 WBC (Bld) [Ratio] 0 % 0-5 [facility] MCHC Auto (RBC) [Mass/Vol]Or dered By: ED PROVIDER on 10-05-2023 MCHC (RBC) [Mass/Vol] 32.3 g/dL 32-36 [facility] No Panel InformationOrdered By: ED PROVIDER on 10-05-2023 Troponin I High Sensitivity 8 pg/mL 3.0-54.0 [facility] Comment on above: Please Note: New Kim t Units and Gender Specific Reference Ranges. For more information see Policy Stat Procedure [place] High Sensitivity Troponin (TNIH) and attachments. 8 pg/mL 3.0-54.0 [facility] Estimated Creatinine Clearance Calc 43.04 ml/min [facility] Estimated GFR (MDRD) Amer 63 mL/min >60 [facility] Comment on above: GFR Calc Estimated GFR (MDRD) Non-Af Amer 52 mL/min >60 [facility] Comment on above: Non- GFR Calc 28.7 pg 27.0-32.0 [facility] 14.0 % 11.6-14.6 [facility] 45.3 fl 35.1-43.9 [facility] 0.400 % 0.0-0.9 [facility] 0 % 0-5 [facility] 52 mL/min >60 [facility] 63 mL/min >60 [facility] 43.04 ml/min [facility] 20.7 RATIO 10-20 [facility] 27.0 mmol/L 21.0-32.0 [facility] No Panel InformationOrdered By: Yasmani Haynes on 10-05-2023 2.0 mg/dL 1.6-2.6 [facility] Platelets bldOrdered By: ED PROVIDER on 10-05-2023 Platelets (Bld) [#/Vol] 206 10*3/uL 150-450 [facility] Serum or plasma calcium stefania urement (mass/volume)Ordered By: ED PROVIDER on 10-05-2023 Calcium [Mass/Vol] 9.5 mg/dL 8.5-10.1 [facility] Serum or plasma creatinine m easurement (mass/volume)Ordered By: ED PROVIDER on 10-05-2023 Creatinine [Mass/Vol] 1.11 mg/dL 0.55-1.02 [facility] Comment on above: The validity of the calculated GFR & GFRAA in patients over 70 years has not been determined. Clinical correlation is essential. Serum or plasma urea nitroge n measurement (mass/volume)Ordered By: ED PROVIDER on 10-05-2023 Urea nitrogen [Mass/Vol] 23 mg/dL 7-18 [facility] Thin prep Papanicolaou smear with manual screeningOrdered By: ED PROVIDER on 10-05-2023 Thin prep Papanicolaou smear with manual screening 5 5-15 [facility] Absolute lymphocyte countOrd ered By: Daron Benton on 08-21-2023 Lymphocytes Auto (Unsp spec) [#/Vol] 1.45 10*3/uL 0.83-4.51 [facility] Basophil percentageOrdered B y: Daron Benton on 08-21-2023 Basophil percentage 86 mg/dL 74-106 [facility] Basophil percentage 7.3 g/dL 6.4-8.2 [facility] Basophil percentage 0.30 mg/dL 0.20-1.00 [facility] Basophil percentage 139 mmol/L 136-145 [facility] Basophil percentage 4.7 mmol/L 3.5-5.1 [facility] Basophil percentage 108 mmol/L 98-107 [facility] Basophils (Bld) [#/Vol] 7.3 10*3/uL 4.4-11.0 [facility] Basophils (Bld) [#/Vol] 5.0 10*3/uL 2.0-7.7 [facility] Basophils/100 WBC (Bld) 0.7 % 0-1 [facility] Basophils/100 WBC (Bld) 68.4 % 47-70 [facility] Basophils/100 WBC (Bld) 3.1 % 0-5 [facility] Bilirubin [Mass/Vol] 0.30 mg/dL 0.20-1.00 [facility] Comment on above: For patients on eltr ombopag therapy, use of Dimension [place] TBIL is not recommended. Chloride [Moles/Vol] 108 mmol/L 98-[address] [facility] Eosinophils/100 WBC (Bld) 3.1 % 0-5 [facility] Glucose [Mass/Vol] 86 mg/dL 74-106 [facility] Neutrophils (Bld) [#/Vol] 5.0 10*3/uL 2.0-7.7 [facility] Neutrophils/100 WBC (Bld) 68.4 % 47-70 [facility] Potassium [Moles/Vol] 4.7 mmol/L 3.5-5.1 [facility] Protein [Mass/Vol] 7.3 g/dL 6.4-8.2 [facility] Sodium [Moles/Vol] 139 mmol/L 136-145 [facility] WBC (Bld) [#/Vol] 7.3 10*3/uL 4.4-11.0 [facility] Blood erythrocytes count (nu mber/volume)Ordered By: Daron Benton on 08-21-2023 RBC (Bld) [#/Vol] 4.99 10*6/uL 4.2-5.4 [facility] Blood hemoglobin measurement (mass/volume)Ordered By: Daron Benton on 08-21-2023 Hemoglobin (Bld) [Mass/Vol] 14.5 g/dL 12.0-15.0 [facility] Blood lymphocytes/100 leukoc ytesOrdered By: Daron Benton on 08-21-2023 Lymphocytes/100 WBC (Bld) 19.8 % 19-41 [facility] Blood monocytes/100 leukocyt esOrdered By: Daron Benton on 08-21-2023 Monocytes/100 WBC (Bld) 7.5 % 0-10 [facility] Blood platelet mean volumeOr dered By: Daron Benton on 08-21-2023 Platelet mean volume (Bld) [Entitic vol] 10.7 fL 6.2-12.0 [facility] Determination of erythrocyte mean corpuscular volume (MCV)Ordered By: Daron Benton on 08-21-2023 MCV (RBC) [Entitic vol] 91.6 fL 81-99 [facility] Hematocrit Auto (Bld) [Volum e fraction]Ordered By: Daron Benton on 08-21-2023 Hematocrit (Bld) [Volume fraction] 45.7 % 37-47 [facility] Laboratory - Chemistry and C hemistry - challengeOrdered By: Daron Benton on 08-21-2023 ALP [Catalytic activity/Vol] 122 U/L 45-117 [facility] ALT [Catalytic activity/Vol] 26 U/L 13-56 [facility] CO2 [Moles/Vol] 28.0 mmol/L 21.0-32.0 [facility] Globulin (S) [Mass/Vol] 3.6 g/dL 2.2-4.2 [facility] Urea nitrogen/Creatinine [Mass ratio] 22.2 mg/mg 10-20 [facility] Laboratory - Hematology and Cell countsOrdered By: Daron Benton on 08-21-2023 Erythrocyte distribution width (RBC) [Entitic vol] 46.4 fL 35.1-43.9 [facility] Erythrocyte distribution width (RBC) [Ratio] 13.8 % 11.6-14.6 [facility] Immature granulocytes/100 WBC (Bld) 0.500 % 0.0-0.9 [facility] Comment on above: IG% - Immature Granu locytes (promyelocytes, myelocytes and metamyelocytes) > 1% indicates that a LEFT SHIFT is Present. MCH (RBC) [Entitic mass] 29.1 pg 27.0-32.0 [facility] Nucleated RBC/100 WBC (Bld) [Ratio] 0 % 0-5 [facility] MCHC Auto (RBC) [Mass/Vol]Or dered By: Daron Benton on 08-21-2023 MCHC (RBC) [Mass/Vol] 31.7 g/dL 32-36 [facility] No Panel InformationOrdered By: Daron Benton on 08-21-2023 Estimated GFR (MDRD) Amer 65 mL/min >60 [facility] Comment on above: GFR Calc Estimated GFR (MDRD) Non-Af Amer 53 mL/min >60 [facility] Comment on above: Non- GFR Calc Thyroid Stimulating Hormone (TSH) 2.00 uIU/mL 0.358-3.74 [facility] 29.1 pg 27.0-32.0 [facility] 13.8 % 11.6-14.6 [facility] 46.4 fl 35.1-43.9 [facility] 0.500 % 0.0-0.9 [facility] 0 % 0-5 [facility] 53 mL/min >60 [facility] 65 mL/min >60 [facility] 22.2 RATIO 10-20 [facility] 3.6 g/dL 2.2-4.2 [facility] 122 U/L 45-117 [facility] 26 U/L 13-56 [facility] 28.0 mmol/L 21.0-32.0 [facility] 2.00 uIU/mL 0.358-3.74 [facility] Platelets bldOrdered By: Nila Benton on 08-21-2023 Platelets (Bld) [#/Vol] 184 10*3/uL 150-450 [facility] Serum or plasma albumin stefania urement (mass/volume)Ordered By: Daron Benton on 08-21-2023 Albumin [Mass/Vol] 3.7 g/dL 3.2-5.0 [facility] Serum or plasma albumin/glob ulin mass ratioOrdered By: Daron Benton on 08-21-2023 Albumin/Globulin [Mass ratio] 1.0 {ratio} 0.9-2.4 [facility] Serum or plasma calcium stefania urement (mass/volume)Ordered By: Daron Benton on 08-21-2023 Calcium [Mass/Vol] 9.2 mg/dL 8.5-10.1 [facility] Serum or plasma creatinine m easurement (mass/volume)Ordered By: Daron Benton on 08-21-2023 Creatinine [Mass/Vol] 1.08 mg/dL 0.55-1.02 [facility] Comment on above: The validity of the calculated GFR & GFRAA in patients over 70 years has not been determined. Clinical correlation is essential. Serum or plasma urea nitroge n measurement (mass/volume)Ordered By: Daron Benton on 08-21-2023 Urea nitrogen [Mass/Vol] 24 mg/dL 7-18 [facility] Thin prep Papanicolaou smear with manual screeningOrdered By: Daron Benton on 08-21-2023 Thin prep Papanicolaou smear with manual screening 18 U/L 15-37 [facility] Thin prep Papanicolaou smear with manual screening 3 5-15 [facility] Basophil percentageOrdered B y: Dr. Benton on 04-26-2023 Bilirubin [Mass/Vol] 0.30 mg/dL 0.20-1.00 [facility] Comment on above: For patients on eltr ombopag therapy, use of Dimension [place] TBIL is not recommended. Chloride [Moles/Vol] 109 mmol/L 98-107 [facility] Glucose [Mass/Vol] 95 mg/dL 74-106 [facility] Potassium [Moles/Vol] 4.6 mmol/L 3.5-5.1 [facility] Protein [Mass/Vol] 7.1 g/dL 6.4-8.2 [facility] Sodium [Moles/Vol] 138 mmol/L 136-145 [facility] INR in Blood by Coagulation assayOrdered By: Dr. Benton on 04-26-2023 INR Coag (Bld) [Relative time] 0.9 {INR} [facility] Laboratory - Chemistry and C hemistry - challengeOrdered By: Dr. Benton on 04-26-2023 ALP [Catalytic activity/Vol] 109 U/L 45-117 [facility] ALT [Catalytic activity/Vol] 26 U/L 13-56 [facility] CO2 [Moles/Vol] 27.0 mmol/L 21.0-32.0 [facility] Globulin (S) [Mass/Vol] 3.6 g/dL 2.2-4.2 [facility] Urea nitrogen/Creatinine [Mass ratio] 26.9 mg/mg 10-20 [facility] Laboratory - CoagulationOrde red By: Dr. Benton on 04-26-2023 PT Coag (PPP) [Time] 12.5 s 11.7-14.9 [facility] No Panel InformationOrdered By: Dr. Benton on 04-26-2023 Estimated GFR (MDRD) Amer 73 mL/min >60 [facility] Comment on above: GFR Calc Estimated GFR (MDRD) Non-Af Amer 61 mL/min >60 [facility] Comment on above: Non- GFR Calc Serum or plasma albumin stefania urement (mass/volume)Ordered By: Dr. Benton on 04-26-2023 Albumin [Mass/Vol] 3.5 g/dL 3.2-5.0 [facility] Serum or plasma albumin/glob ulin mass ratioOrdered By: Dr. Benton on 04-26-2023 Albumin/Globulin [Mass ratio] 1.0 {ratio} 0.9-2.4 [facility] Serum or plasma calcium stefania urement (mass/volume)Ordered By: Dr. Benton on 04-26-2023 Calcium [Mass/Vol] 9.5 mg/dL 8.5-10.1 [facility] Serum or plasma creatinine m easurement (mass/volume)Ordered By: Dr. Benton on 04-26-2023 Creatinine [Mass/Vol] 0.97 mg/dL 0.55-1.02 [facility] Comment on above: The validity of the calculated GFR & GFRAA in patients over 70 years has not been determined. Clinical correlation is essential. Serum or plasma transthyreti n measurement (mass/volume)Ordered By: Dr. Benton on 04-26-2023 Prealbumin [Mass/Vol] 19.6 mg/dL 20.0-40.0 [facility] Serum or plasma urea nitroge n measurement (mass/volume)Ordered By: Dr. Benton on 04-26-2023 Urea nitrogen [Mass/Vol] 26 mg/dL 7-18 [facility] Thin prep Papanicolaou smear with manual screeningOrdered By: Dr. Benton on 04-26-2023 Thin prep Papanicolaou smear with manual screening 14 U/L 15-37 [facility] Thin prep Papanicolaou smear with manual screening 2 5-15 [facility] Absolute lymphocyte countOrd ered By: Dr. Garcia on 04-08-2023 Lymphocytes Auto (Unsp spec) [#/Vol] 1.45 10*3/uL 0.83-4.51 [facility] Basophil percentageOrdered B y: Dr. Garcia on 04-08-2023 Basophils/100 WBC (Bld) 0.7 % 0-1 [facility] Chloride [Moles/Vol] 105 mmol/L 98-107 [facility] Eosinophils/100 WBC (Bld) 1.5 % 0-5 [facility] Glucose [Mass/Vol] 96 mg/dL 74-106 [facility] Neutrophils (Bld) [#/Vol] 5.3 10*3/uL 2.0-7.7 [facility] Neutrophils/100 WBC (Bld) 70.5 % 47-70 [facility] Potassium [Moles/Vol] 3.8 mmol/L 3.5-5.1 [facility] Sodium [Moles/Vol] 141 mmol/L 136-145 [facility] WBC (Bld) [#/Vol] 7.6 10*3/uL 4.4-11.0 [facility] Blood erythrocytes count (nu mber/volume)Ordered By: Dr. Garcia on 04-08-2023 RBC (Bld) [#/Vol] 5.14 10*6/uL 4.2-5.4 [facility] Blood hemoglobin measurement (mass/volume)Ordered By: Dr. Garcia on 04-08-2023 Hemoglobin (Bld) [Mass/Vol] 15.1 g/dL 12.0-15.0 [facility] Blood lymphocytes/100 leukoc ytesOrdered By: Dr. Garcia on 04-08-2023 Lymphocytes/100 WBC (Bld) 19.2 % 19-41 [facility] Blood monocytes/100 leukocyt esOrdered By: Dr. Garcia on 04-08-2023 Monocytes/100 WBC (Bld) 7.7 % 0-10 [facility] Blood platelet mean volumeOr dered By: Dr. Garcia on 04-08-2023 Platelet mean volume (Bld) [Entitic vol] 10.2 fL 6.2-12.0 [facility] Determination of erythrocyte mean corpuscular volume (MCV)Ordered By: Dr. Garcia on 04-08-2023 MCV (RBC) [Entitic vol] 89.1 fL 81-99 [facility] Hematocrit Auto (Bld) [Volum e fraction]Ordered By: Dr. Garcia on 04-08-2023 Hematocrit (Bld) [Volume fraction] 45.8 % 37-47 [facility] Laboratory - Chemistry and C hemistry - challengeOrdered By: Dr. Garcia on 04-08-2023 CO2 [Moles/Vol] 29.0 mmol/L 21.0-32.0 [facility] Urea nitrogen/Creatinine [Mass ratio] 24.0 mg/mg 10-20 [facility] Laboratory - Hematology and Cell countsOrdered By: Dr. Garcia on 04-08-2023 Erythrocyte distribution width (RBC) [Entitic vol] 46.6 fL 35.1-43.9 [facility] Erythrocyte distribution width (RBC) [Ratio] 14.4 % 11.6-14.6 [facility] Immature granulocytes/100 WBC (Bld) 0.400 % 0.0-0.9 [facility] Comment on above: IG% - Immature Granu locytes (promyelocytes, myelocytes and metamyelocytes) > 1% indicates that a LEFT SHIFT is Present. MCH (RBC) [Entitic mass] 29.4 pg 27.0-32.0 [facility] Nucleated RBC/100 WBC (Bld) [Ratio] 0 % 0-5 [facility] MCHC Auto (RBC) [Mass/Vol]Or dered By: Dr. Garcia on 04-08-2023 MCHC (RBC) [Mass/Vol] 33.0 g/dL 32-36 [facility] No Panel InformationOrdered By: Dr. Garcia on 04-08-2023 Troponin I High Sensitivity 9 pg/mL 3.0-54.0 [facility] Comment on above: Please Note: New Kim t Units and Gender Specific Reference Ranges. For more information see Policy Stat Procedure [place] High Sensitivity Troponin (TNIH) and attachments. Estimated Creatinine Clearance Calc 50.23 ml/min [facility] Estimated GFR (MDRD) Amer 83 mL/min >60 [facility] Comment on above: GFR Calc Estimated GFR (MDRD) Non-Af Amer 68 mL/min >60 [facility] Comment on above: Non- GFR Calc Platelets bldOrdered By: Dr. Garcia on 04-08-2023 Platelets (Bld) [#/Vol] 171 10*3/uL 150-450 [facility] Serum or plasma calcium stefania urement (mass/volume)Ordered By: Dr. Garcia on 04-08-2023 Calcium [Mass/Vol] 9.6 mg/dL 8.5-10.1 [facility] Serum or plasma creatinine m easurement (mass/volume)Ordered By: Dr. Garcia on 04-08-2023 Creatinine [Mass/Vol] 0.88 mg/dL 0.55-1.02 [facility] Comment on above: The validity of the calculated GFR & GFRAA in patients over 70 years has not been determined. Clinical correlation is essential. Serum or plasma urea nitroge n measurement (mass/volume)Ordered By: Dr. Garcia on 04-08-2023 Urea nitrogen [Mass/Vol] 21 mg/dL 7-18 [facility] Thin prep Papanicolaou smear with manual screeningOrdered By: Dr. Garcia on 04-08-2023 Thin prep Papanicolaou smear with manual screening 7 5-15 [facility] Culture, urineOrdered By: Dr Hero Campbell on 04-01-2023 Bacteria identified Cx Nom (U) Positive [facility] Basophil percentageOrdered B y: Dr. Campbell on 03-31-2023 Basophil percentage 0 SEEN /hpf 0-5 [facility] Bilirubin Test strip Ql (U)O rdered By: Dr. Campbell on 03-31-2023 Bilirubin Ql (U) Negative Negative [facility] Ketones Test strip Ql (U)Ord ered By: Dr. Campbell on 03-31-2023 Ketones Ql (U) Negative Negative [facility] Mucus LM Ql (Urine sed)Order ed By: Dr. Campbell on 03-31-2023 Mucus Ql (Urine sed) 0 SEEN /hpf [facility] Nitrite Test strip Ql (U)Ord ered By: Dr. Campbell on 03-31-2023 Nitrite Ql (U) Negative Negative [facility] Protein Test strip Ql (U)Ord ered By: Dr. Campbell on 03-31-2023 Protein Ql (U) Negative Negative [facility] Squamous epithelial cells de tection in urine sediment by light microscopyOrdered By: Dr. Campbell on 03-31-2023 Epithelial cells.squamous LM Ql (Urine sed) 5-10 SEEN /hpf 5-10 [facility] Urine blood detectionOrdered By: Dr. Campbell on 03-31-2023 RBC Ql (U) Negative Negative [facility] RBC Ql (U) 0 SEEN /hpf 0-5 [facility] Urine clarityOrdered By: Dr. Campbell on 03-31-2023 Clarity (U) Clear Clear [facility] Urine color determinationOrd ered By: Dr. Campbell on 03-31-2023 Color (U) Yellow Yellow [facility] Urine glucose detectionOrder ed By: Dr. Campbell on 03-31-2023 Glucose Ql (U) Normal mg/dl Normal [facility] Urine leukocyte esterase det ection by dipstickOrdered By: Dr. Campbell on 03-31-2023 Leukocyte esterase Test strip Ql (U) Negative Negative [facility] Urine pHOrdered By: Dr. Campbell o n 03-31-2023 pH (U) 6.0 [pH] 5.0 - 8.0 [facility] Urine sediment bacteria coun t by microscopy (number/high power field)Ordered By: Dr. Campbell on 03-31-2023 Bacteria LM.HPF (Urine sed) [#/Area] 1 /[HPF] None Seen [facility] Urine specific gravity measu rementOrdered By: Dr. Campbell on 03-31-2023 Specific gravity (U) [Rel density] 1.010 1.002-1.03 0 [facility] Urobilinogen Auto test strip Ql (U)Ordered By: Dr. Campbell on 03-31-2023 Urobilinogen Ql (U) Normal mg/dl Normal [facility] LABORATORYOrdered By: SYSTEM SYSTEM on 11-09-2022 Basophils (Bld) [#/Vol] 0.1 103/mcL Invalid Interpretation Code 0.0 - 0.3 10^3/mcL Workflow SS Basophils/100 WBC (Bld) 0.8 % Invalid Interpretation Code 0.0 - 2.5 % Workflow SS Calcium [Mass/Vol] 9.3 mg/dL Invalid Interpretation Code 8.7 - 10.4 mg/dL ADM SS Chloride [Moles/Vol] 108 mmol/L Invalid Interpretation Code 98 - 110 mEq/L ADM SS CO2 [Moles/Vol] 31 mmol/L Invalid Interpretation Code 22 - 32 mEq/L ADM SS Creatinine [Mass/Vol] 0.78 mg/dL Invalid Interpretation Code 0.50 - 1.20 mg/dL ADM SS Electrolyte Balance 5.0 mEq/L Invalid Interpretation Code 4.0 - 15.0 mEq/L ADM SS Eosinophils (Bld) [#/Vol] 0.2 103/mcL Invalid Interpretation Code 0.0 - 0.7 10^3/mcL AH Workflow SS Eosinophils/100 WBC (Bld) 2.5 % Invalid Interpretation Code 0.0 - 6.0 % AH Workflow SS Erythrocyte distribution width (RBC) [Ratio] 15.3 % Invalid Interpretation Code 11.5 - 15.5 % AH Workflow SS GFR/1.73 sq M.predicted among blacks MDRD (S/P/Bld) [Vol rate/Area] ml/min/1.73sqm Invalid Interpretation Code AH Chemistry S GFR/1.73 sq M.predicted among non-blacks MDRD (S/P/Bld) [Vol rate/Area] ml/min/1.73sqm Invalid Interpretation Code Chemistry S Glucose [Mass/Vol] 98 mg/dL Invalid Interpretation Code 82 - 115 mg/dL AH ADM SS Hematocrit (Bld) [Volume fraction] 44.6 % Invalid Interpretation Code 34.0 - 46.0 % AH Workflow SS Hemoglobin (Bld) [Mass/Vol] 14.8 G/dL Invalid Interpretation Code 12.0 - 16.0 G/dL AH Workflow SS Lymphocytes (Bld) [#/Vol] 1.2 103/mcL Invalid Interpretation Code 0.9 - 4.3 10^3/mcL AH Workflow SS Lymphocytes/100 WBC (Bld) 18.6 % Invalid Interpretation Code 20.0 - 40.0 % AH Workflow SS MCH (RBC) [Entitic mass] 29.0 pg Invalid Interpretation Code 27.0 - 33.0 pg AH Workflow SS MCHC 33.2 G/dL Invalid Interpretation Code 32.0 - 36.0 G/dL AH Workflow SS MCV (RBC) [Entitic vol] 87.2 fL Invalid Interpretation Code 80.0 - 99.0 fL AH Workflow SS Monocytes (Bld) [#/Vol] 0.6 103/mcL Invalid Interpretation Code 0.1 - 1.4 10^3/mcL AH Workflow SS Monocytes/100 WBC (Bld) 8.7 % Invalid Interpretation Code 2.0 - 13.0 % AH Workflow SS Neutrophils (Bld) [#/Vol] 4.5 103/mcL Invalid Interpretation Code 2.3 - 8.1 10^3/mcL AH Workflow SS Neutrophils/100 WBC (Bld) 69.4 % Invalid Interpretation Code 50.0 - 75.0 % AH Workflow SS Platelet mean volume (Bld) [Entitic vol] 8.1 fL Invalid Interpretation Code 6.6 - 10.5 fL Workflow SS Platelets (Bld) [#/Vol] 167 103/mcL Invalid Interpretation Code 150 - 450 10^3/mcL Workflow SS Potassium [Moles/Vol] 4.4 mmol/L Invalid Interpretation Code 3.5 - 5.0 mEq/L AH ADM SS RBC (Bld) [#/Vol] 5.11 106/mcL Invalid Interpretation Code 4.10 - 5.30 10^6/mcL Workflow SS Sodium [Moles/Vol] 144 mmol/L Invalid Interpretation Code 136 - 145 mEq/L ADM SS Urea nitrogen [Mass/Vol] 19.0 mg/dL Invalid Interpretation Code 8.0 - 22.0 mg/dL AH ADM SS Urea nitrogen/Creatinine [Mass ratio] 24.4 ratio Invalid Interpretation Code 10.0 - 22.0 ratio ADM SS WBC (Bld) [#/Vol] 6.4 103/mcL Invalid Interpretation Code 4.5 - 10.8 10^3/mcL Workflow SS Absolute lymphocyte countOrd ered By: Dr. Benton on 10-20-2022 Lymphocytes Auto (Unsp spec) [#/Vol] 1.75 10*3/uL 0.83-4.51 [facility] Basophil percentageOrdered B y: Dr. Benton on 10-20-2022 Basophil percentage < 0.2 AI 0.0-0.9 [facility] Basophils/100 WBC (Bld) 1.0 % 0-1 [facility] Bilirubin [Mass/Vol] 0.70 mg/dL 0.20-1.00 [facility] Comment on above: For patients on eltr ombopag therapy, use of Dimension [place] TBIL is not recommended. Chloride [Moles/Vol] 107 mmol/L 98-107 [facility] Eosinophils/100 WBC (Bld) 1.8 % 0-5 [facility] Glucose [Mass/Vol] 89 mg/dL 74-106 [facility] Neutrophils (Bld) [#/Vol] 5.8 10*3/uL 2.0-7.7 [facility] Neutrophils/100 WBC (Bld) 68.4 % 47-70 [facility] Potassium [Moles/Vol] 4.2 mmol/L 3.5-5.1 [facility] Protein [Mass/Vol] 7.0 g/dL 6.4-8.2 [facility] Sodium [Moles/Vol] 140 mmol/L 136-145 [facility] WBC (Bld) [#/Vol] 8.4 10*3/uL 4.4-11.0 [facility] Blood erythrocytes count (nu mber/volume)Ordered By: Dr. Benton on 10-20-2022 RBC (Bld) [#/Vol] 5.49 10*6/uL 4.2-5.4 [facility] Blood hemoglobin measurement (mass/volume)Ordered By: Dr. Benton on 10-20-2022 Hemoglobin (Bld) [Mass/Vol] 15.6 g/dL 12.0-15.0 [facility] Blood lymphocytes/100 leukoc ytesOrdered By: Dr. Benton on 10-20-2022 Lymphocytes/100 WBC (Bld) 20.8 % 19-41 [facility] Blood monocytes/100 leukocyt esOrdered By: Dr. Benton on 10-20-2022 Monocytes/100 WBC (Bld) 7.5 % 0-10 [facility] Blood platelet mean volumeOr dered By: Dr. Benton on 10-20-2022 Platelet mean volume (Bld) [Entitic vol] 10.1 fL 6.2-12.0 [facility] Determination of erythrocyte mean corpuscular volume (MCV)Ordered By: Dr. Benton on 10-20-2022 MCV (RBC) [Entitic vol] 87.8 fL 81-99 [facility] Erythrocyte sedimentation ra teOrdered By: Dr. Benton on 10-20-2022 ESR (Bld) [Velocity] 19 mm/h 0-30 [facility] Hematocrit Auto (Bld) [Volum e fraction]Ordered By: Dr. Benton on 10-20-2022 Hematocrit (Bld) [Volume fraction] 48.2 % 37-47 [facility] Laboratory - Chemistry and C hemistry - challengeOrdered By: Dr. Benton on 10-20-2022 ALP [Catalytic activity/Vol] 126 U/L 45-117 [facility] ALT [Catalytic activity/Vol] 18 U/L 13-56 [facility] Amylase [Catalytic activity/Vol] 22 U/L 5-55 [facility] CO2 [Moles/Vol] 28.0 mmol/L 21.0-32.0 [facility] Free T4 [Mass/Vol] 1.41 ng/dL 0.76-1.46 [facility] Globulin (S) [Mass/Vol] 3.1 g/dL 2.2-4.2 [facility] Lipase [Catalytic activity/Vol] 88 U/L 73-393 [facility] Urea nitrogen/Creatinine [Mass ratio] 20.8 mg/mg 10-20 [facility] Laboratory - Hematology and Cell countsOrdered By: Dr. Benton on 10-20-2022 Erythrocyte distribution width (RBC) [Entitic vol] 47.9 fL 35.1-43.9 [facility] Erythrocyte distribution width (RBC) [Ratio] 14.9 % 11.6-14.6 [facility] Immature granulocytes/100 WBC (Bld) 0.500 % 0.0-0.9 [facility] Comment on above: IG% - Immature Granu locytes (promyelocytes, myelocytes and metamyelocytes) > 1% indicates that a LEFT SHIFT is Present. MCH (RBC) [Entitic mass] 28.4 pg 27.0-32.0 [facility] Nucleated RBC/100 WBC (Bld) [Ratio] 0 % 0-5 [facility] MCHC Auto (RBC) [Mass/Vol]Or dered By: Dr. Benton on 10-20-2022 MCHC (RBC) [Mass/Vol] 32.4 g/dL 32-36 [facility] No Panel InformationOrdered By: Dr. Benton on 10-20-2022 Centromere B Antibody <0.2 AI 0.0-0.9 [facility] Estimated GFR (MDRD) Amer 96 mL/min >60 [facility] Comment on above: GFR Calc Estimated GFR (MDRD) Non-Af Amer 79 mL/min >60 [facility] Comment on above: Non- GFR Calc TRANSPORTATION DISPATCHER Antibody <0.2 AI 0.0-0.9 [facility] Thyroid Stimulating Hormone (TSH) 1.66 uIU/mL 0.358-3.74 [facility] Vitamin D 25-Hydroxy 59.8 ng/mL [facility] Comment on above: Vitamin D 25(OH) Sta tus Range Deficiency <20 ng/mL (50nmol/L) Insufficiency 20 - 30 ng/mL (50 - 75 nmol/L) Sufficiency 30 - 100 ng/mL (75 - 250 nmol/L) Toxicity >100 ng/mL (>250 nmol/L) Platelets bldOrdered By: Dr. Benton on 10-20-2022 Platelets (Bld) [#/Vol] 197 10*3/uL 150-450 [facility] Serum DNA double strand anti body assay (units/volume)Ordered By: Dr. Benton on 10-20-2022 DNA double strand Ab Qn (S) [IU]/mL 0-9 [facility] Comment on above: Negative <5 Equivoca l 5 - 9 Positive >9 Serum Myrtle-1 antibody assay (u nits/volume)Ordered By: Dr. Benton on 10-20-2022 Myrtle-1 extractable nuclear Ab Qn (S) <0.2 AI 0.0-0.9 [facility] Serum Scl-70 extractable nuc lear antibody assay (units/volume)Ordered By: Dr. Benton on 10-20-2022 SCL-70 extractable nuclear Ab Qn (S) 0.2 AI 0.0-0.9 [facility] Serum Benton extractable nucl ear antibody detectionOrdered By: Dr. Benton on 10-20-2022 Chetan extractable nuclear Ab Ql (S) <0.2 AI 0.0-0.9 [facility] Serum or plasma C reactive p rotein measurement (mass/volume)Ordered By: Dr. Benton on 10-20-2022 CRP [Mass/Vol] mg/L 0.0-3.0 [facility] Comment on above: C-Reactive Protein ( CRP) provides useful information for thediagnosis, therapy and monitoring of inflammatory processesand associated diseases. For the evaluation of Relative Riskfor Cardiovascular Disease, a High Sensitivity CRP (HSCRP)should be ordered. Serum or plasma albumin stefania urement (mass/volume)Ordered By: Dr. Benton on 10-20-2022 Albumin [Mass/Vol] 3.9 g/dL 3.2-5.0 [facility] Serum or plasma albumin/glob ulin mass ratioOrdered By: Dr. Benton on 10-20-2022 Albumin/Globulin [Mass ratio] 1.3 {ratio} 0.9-2.4 [facility] Serum or plasma calcium stefania urement (mass/volume)Ordered By: Dr. Benton on 10-20-2022 Calcium [Mass/Vol] 9.2 mg/dL 8.5-10.1 [facility] Serum or plasma creatinine m easurement (mass/volume)Ordered By: Dr. Benton on 10-20-2022 Creatinine [Mass/Vol] 0.77 mg/dL 0.55-1.02 [facility] Comment on above: The validity of the calculated GFR & GFRAA in patients over 70 years has not been determined. Clinical correlation is essential. Serum or plasma urea nitroge n measurement (mass/volume)Ordered By: Dr. Benton on 10-20-2022 Urea nitrogen [Mass/Vol] 16 mg/dL 06-05 [facility] Serum rheumatoid factor dete ctionOrdered By: Dr. Benton on 10-20-2022 Rheumatoid factor Ql (S) < 10.0 IU/mL <15 [facility] Thin prep Papanicolaou smear with manual screeningOrdered By: Dr. Benton on 10-20-2022 Thin prep Papanicolaou smear with manual screening 14 U/L 15-37 [facility] Thin prep Papanicolaou smear with manual screening 5 5-15 [facility] No Panel Informationon 05-02 Estimated GFR (MDRD) Amer 77 mL/min >60 [facility] Work Phone: Comment on above: GFR Calc Estimated GFR (MDRD) Non-Af Amer 63 mL/min >60 [facility] Work Phone: Comment on above: Non- GFR Calc Serum or plasma creatinine m easurement (mass/volume)on 05-02-2022 Creatinine [Mass/Vol] 0.94 mg/dL 0.55-1.02 [facility] Work Phone: Comment on above: The validity of the calculated GFR & GFRAA in patients over 70 years has not been determined. Clinical correlation is essential. Serum or plasma urea nitroge n measurement (mass/volume)on 05-02-2022 Urea nitrogen [Mass/Vol] 11 mg/dL 06-05 [facility] Work Phone: Absolute lymphocyte counton 02-20-2022 Lymphocytes Auto (Unsp spec) [#/Vol] 1.50 10*3/uL 0.83-4.51 [facility] Work Phone: Basophil percentageon 2021 Basophils/100 WBC (Bld) 0.3 % 0-1 [facility] Work Phone: Bilirubin [Mass/Vol] 0.20 mg/dL 0.20-1.00 [facility] Work Phone: Comment on above: For patients on eltr ombopag therapy, use of Dimension [place] TBIL is not recommended. Chloride [Moles/Vol] 107 mmol/L 98-107 [facility] Work Phone: Eosinophils/100 WBC (Bld) 0.8 % 0-5 [facility] Work Phone: Glucose [Mass/Vol] 97 mg/dL 74-106 [facility] Work Phone: Neutrophils (Bld) [#/Vol] 4.0 10*3/uL 2.0-7.7 [facility] Work Phone: Neutrophils/100 WBC (Bld) 65.5 % 47-70 [facility] Work Phone: [phone] Potassium [Moles/Vol] 3.5 mmol/L 3.5-5.1 [facility] Work Phone: Protein [Mass/Vol] 6.5 g/dL 6.4-8.2 [facility] Work Phone: Sodium [Moles/Vol] 142 mmol/L 136-145 [facility] Work Phone: WBC (Bld) [#/Vol] 6.2 10*3/uL 4.4-11.0 [facility] Work Phone: Blood erythrocytes count (nu mber/volume)on 02-20-2022 RBC (Bld) [#/Vol] 4.80 10*6/uL 4.2-5.4 [facility] Work Phone: Blood hemoglobin measurement (mass/volume)on 02-20-2022 Hemoglobin (Bld) [Mass/Vol] 14.1 g/dL 12.0-15.0 [facility] Work Phone: Blood lymphocytes/100 leukoc yteson 02-20-2022 Lymphocytes/100 WBC (Bld) 24.4 % 19-41 [facility] Work Phone: Blood monocytes/100 leukocyt eson 02-20-2022 Monocytes/100 WBC (Bld) 8.3 % 0-10 [facility] Work Phone: Blood platelet mean volumeon 02-20-2022 Platelet mean volume (Bld) [Entitic vol] 10.0 fL 6.2-12.0 [facility] Work Phone: Determination of erythrocyte mean corpuscular volume (MCV)on 02-20-2022 MCV (RBC) [Entitic vol] 90.6 fL 81-99 [facility] Work Phone: Direct bilirubinon 2 Bilirubin.direct [Mass/Vol] 0.10 mg/dL 0.00-0.30 [facility] Work Phone: Hematocrit Auto (Bld) [Volum e fraction]on 02-20-2022 Hematocrit (Bld) [Volume fraction] 43.5 % 37-47 [facility] Work Phone: INR in Blood by Coagulation assayon 02-20-2022 INR Coag (Bld) [Relative time] 1.0 {INR} [facility] Work Phone: Laboratory - Chemistry and C hemistry - challengeon 02-20-2022 ALP [Catalytic activity/Vol] 97 U/L 45-117 [facility] Work Phone: ALT [Catalytic activity/Vol] 18 U/L 13-56 [facility] Work Phone: CO2 [Moles/Vol] 30.0 mmol/L 21.0-32.0 [facility] Work Phone: Globulin (S) [Mass/Vol] 3.2 g/dL 2.2-4.2 [facility] Work Phone: Lipase [Catalytic activity/Vol] 38 U/L 73-393 [facility] Work Phone: Urea nitrogen/Creatinine [Mass ratio] 17.8 mg/mg 10-20 [facility] Work Phone: Laboratory - Coagulationon 0 02-20-2022 PT Coag (PPP) [Time] 12.3 s 11.7-14.9 [facility] Work Phone: Laboratory - Hematology and Cell countson 02-20-2022 Erythrocyte distribution width (RBC) [Entitic vol] 45.6 fL 35.1-43.9 [facility] Work Phone: Erythrocyte distribution width (RBC) [Ratio] 13.7 % 11.6-14.6 [facility] Work Phone: Immature granulocytes/100 WBC (Bld) 0.700 % 0.0-0.9 [facility] Work Phone: Comment on above: IG% - Immature Granu locytes (promyelocytes, myelocytes and metamyelocytes) > 1% indicates that a LEFT SHIFT is Present. MCH (RBC) [Entitic mass] 29.4 pg 27.0-32.0 [facility] Work Phone: Nucleated RBC/100 WBC (Bld) [Ratio] 0 % 0-5 [facility] Work Phone: MCHC Auto (RBC) [Mass/Vol]on 02-20-2022 MCHC (RBC) [Mass/Vol] 32.4 g/dL 32-36 [facility] Work Phone: No Panel Informationon 02-20 Estimated Creatinine Clearance Calc 59.57 ml/min [facility] Work Phone: Estimated GFR (MDRD) Amer 86 mL/min >60 [facility] Work Phone: Comment on above: GFR Calc Estimated GFR (MDRD) Non-Af Amer 71 mL/min >60 [facility] Work Phone: Comment on above: Non- GFR Calc Troponin I High Sensitivity 4 pg/mL 3.0-54.0 [facility] Work Phone: Comment on above: Please Note: New Kim t Units and Gender Specific Reference Ranges. For more information see Policy Stat Procedure [place] High Sensitivity Troponin (TNIH) and attachments. Platelets bldon 02-20-2022 Platelets (Bld) [#/Vol] 171 10*3/uL 150-450 [facility] Work Phone: Serum or plasma albumin stefania urement (mass/volume)on 02-20-2022 Albumin [Mass/Vol] 3.3 g/dL 3.2-5.0 [facility] Work Phone: Serum or plasma calcium stefania urement (mass/volume)on 02-20-2022 Calcium [Mass/Vol] 8.7 mg/dL 8.5-10.1 [facility] Work Phone: Serum or plasma creatinine m easurement (mass/volume)on 02-20-2022 Creatinine [Mass/Vol] 0.84 mg/dL 0.55-1.02 [facility] Work Phone: Comment on above: The validity of the calculated GFR & GFRAA in patients over 70 years has not been determined. Clinical correlation is essential. Serum or plasma urea nitroge n measurement (mass/volume)on 02-20-2022 Urea nitrogen [Mass/Vol] 15 mg/dL 7-18 [facility] Work Phone: Thin prep Papanicolaou smear with manual screeningon 02-20-2022 Thin prep Papanicolaou smear with manual screening 11 U/L 15-37 [facility] Work Phone: Thin prep Papanicolaou smear with manual screening 5 5-15 [facility] Work Phone: Absolute lymphocyte counton 02-18-2022 Lymphocytes Auto (Unsp spec) [#/Vol] 1.64 10*3/uL 0.83-4.51 [facility] Work Phone: Basophil percentageon 2021 Basophils/100 WBC (Bld) 0.9 % 0-1 [facility] Work Phone: Chloride [Moles/Vol] 108 mmol/L 98-107 [facility] Work Phone: Eosinophils/100 WBC (Bld) 3.1 % 0-5 [facility] Work Phone: Glucose [Mass/Vol] 112 mg/dL 74-106 [facility] Work Phone: Comment on above: Fasting Glucose resu lt from 100 to 125 mg/dL suggests IMPAIRED HOMEOSTASIS per A.D.A. criteria. Neutrophils (Bld) [#/Vol] 3.8 10*3/uL 2.0-7.7 [facility] Work Phone: Neutrophils/100 WBC (Bld) 58.7 % 47-70 [facility] Work Phone: Potassium [Moles/Vol] 3.6 mmol/L 3.5-5.1 [facility] Work Phone: Sodium [Moles/Vol] 141 mmol/L 136-145 [facility] Work Phone: WBC (Bld) [#/Vol] 6.4 10*3/uL 4.4-11.0 [facility] Work Phone: Blood erythrocytes count (nu mber/volume)on 02-18-2022 RBC (Bld) [#/Vol] 5.18 10*6/uL 4.2-5.4 [facility] Work Phone: Blood hemoglobin measurement (mass/volume)on 02-18-2022 Hemoglobin (Bld) [Mass/Vol] 15.0 g/dL 12.0-15.0 [facility] Work Phone: [phone] Blood lymphocytes/100 leukoc yteson 02-18-2022 Lymphocytes/100 WBC (Bld) 25.5 % 19-41 [facility] Work Phone: Blood monocytes/100 leukocyt eson 02-18-2022 Monocytes/100 WBC (Bld) 11.2 % 0-10 [facility] Work Phone: Blood platelet mean volumeon 02-18-2022 Platelet mean volume (Bld) [Entitic vol] 9.8 fL 6.2-12.0 [facility] Work Phone: Determination of erythrocyte mean corpuscular volume (MCV)on 02-18-2022 MCV (RBC) [Entitic vol] 88.2 fL 81-99 [facility] Work Phone: Hematocrit Auto (Bld) [Volum e fraction]on 02-18-2022 Hematocrit (Bld) [Volume fraction] 45.7 % 37-47 [facility] Work Phone: INR in Blood by Coagulation assayon 02-18-2022 INR Coag (Bld) [Relative time] 1.0 {INR} [facility] Work Phone: Laboratory - Chemistry and C hemistry - challengeon 02-18-2022 CO2 [Moles/Vol] 29.0 mmol/L 21.0-32.0 [facility] Work Phone: Magnesium [Mass/Vol] 2.1 mg/dL 1.6-2.6 [facility] Work Phone: Urea nitrogen/Creatinine [Mass ratio] 13.9 mg/mg 10-20 [facility] Work Phone: Laboratory - Coagulationon 0 02-18-2022 aPTT Coag (Bld) [Time] 28.9 s 24.1-36.2 [facility] Work Phone: PT Coag (PPP) [Time] 12.6 s 11.7-14.9 [facility] Work Phone: Laboratory - Hematology and Cell countson 02-18-2022 Erythrocyte distribution width (RBC) [Entitic vol] 43.7 fL 35.1-43.9 [facility] Work Phone: Erythrocyte distribution width (RBC) [Ratio] 13.5 % 11.6-14.6 [facility] Work Phone: Immature granulocytes/100 WBC (Bld) 0.600 % 0.0-0.9 [facility] Work Phone: Comment on above: IG% - Immature Granu locytes (promyelocytes, myelocytes and metamyelocytes) > 1% indicates that a LEFT SHIFT is Present. MCH (RBC) [Entitic mass] 29.0 pg 27.0-32.0 [facility] Work Phone: Nucleated RBC/100 WBC (Bld) [Ratio] 0 % 0-5 [facility] Work Phone: MCHC Auto (RBC) [Mass/Vol]on 02-18-2022 MCHC (RBC) [Mass/Vol] 32.8 g/dL 32-36 [facility] Work Phone: No Panel Informationon 02-18 Troponin I High Sensitivity 5 pg/mL 3.0-54.0 [facility] Work Phone: Comment on above: Please Note: New Kim t Units and Gender Specific Reference Ranges. For more information see Policy Stat Procedure [place] High Sensitivity Troponin (TNIH) and attachments. Estimated Creatinine Clearance Calc 51.11 ml/min [facility] Work Phone: Estimated GFR (MDRD) Amer 93 mL/min >60 [facility] Work Phone: Comment on above: GFR Calc Estimated GFR (MDRD) Non-Af Amer 77 mL/min >60 [facility] Work Phone: Comment on above: Non- GFR Calc Platelets bldon 02-18-2022 Platelets (Bld) [#/Vol] 207 10*3/uL 150-450 [facility] Work Phone: Serum or plasma calcium stefania urement (mass/volume)on 02-18-2022 Calcium [Mass/Vol] 8.8 mg/dL 8.5-10.1 [facility] Work Phone: Serum or plasma creatinine m easurement (mass/volume)on 02-18-2022 Creatinine [Mass/Vol] 0.79 mg/dL 0.55-1.02 [facility] Work Phone: Comment on above: The validity of the calculated GFR & GFRAA in patients over 70 years has not been determined. Clinical correlation is essential. Serum or plasma urea nitroge n measurement (mass/volume)on 02-18-2022 Urea nitrogen [Mass/Vol] 11 mg/dL 7-18 [facility] Work Phone: Thin prep Papanicolaou smear with manual screeningon 02-18-2022 Thin prep Papanicolaou smear with manual screening 4 5-15 [facility] Work Phone: Basophil percentageon 2021 Basophil percentage 4.4 mg/dL 2.5-4.9 [facility] Work Phone: Chloride [Moles/Vol] 106 mmol/L 98-107 [facility] Work Phone: Glucose [Mass/Vol] 92 mg/dL 74-106 [facility] Work Phone: Potassium [Moles/Vol] 3.9 mmol/L 3.5-5.1 [facility] Work Phone: Sodium [Moles/Vol] 141 mmol/L 136-145 [facility] Work Phone: WBC (Bld) [#/Vol] 7.7 10*3/uL 4.4-11.0 [facility] Work Phone: Blood erythrocytes count (nu mber/volume)on 01-18-2022 RBC (Bld) [#/Vol] 5.55 10*6/uL 4.2-5.4 [facility] Work Phone: Blood hemoglobin measurement (mass/volume)on 01-18-2022 Hemoglobin (Bld) [Mass/Vol] 16.9 g/dL 12.0-15.0 [facility] Work Phone: Blood platelet mean volumeon 01-18-2022 Platelet mean volume (Bld) [Entitic vol] 9.7 fL 6.2-12.0 [facility] Work Phone: Determination of erythrocyte mean corpuscular volume (MCV)on 01-18-2022 MCV (RBC) [Entitic vol] 90.5 fL 81-99 [facility] Work Phone: Hematocrit Auto (Bld) [Volum e fraction]on 01-18-2022 Hematocrit (Bld) [Volume fraction] 50.2 % 37-47 [facility] Work Phone: Laboratory - Chemistry and C hemistry - challengeon 01-18-2022 CO2 [Moles/Vol] 31.0 mmol/L 21.0-32.0 [facility] Work Phone: Urea nitrogen/Creatinine [Mass ratio] 18.6 mg/mg 10-20 [facility] Work Phone: Laboratory - Hematology and Cell countson 01-18-2022 Erythrocyte distribution width (RBC) [Entitic vol] 46.6 fL 35.1-43.9 [facility] Work Phone: Erythrocyte distribution width (RBC) [Ratio] 13.8 % 11.6-14.6 [facility] Work Phone: MCH (RBC) [Entitic mass] 30.5 pg 27.0-32.0 [facility] Work Phone: MCHC Auto (RBC) [Mass/Vol]on 01-18-2022 MCHC (RBC) [Mass/Vol] 33.7 g/dL 32-36 [facility] Work Phone: No Panel Informationon 01-18 Estimated Creatinine Clearance Calc 50.37 ml/min [facility] Work Phone: Estimated GFR (MDRD) Amer 74 mL/min >60 [facility] Work Phone: Comment on above: GFR Calc Estimated GFR (MDRD) Non-Af Amer 61 mL/min >60 [facility] [facility] Work Phone: Comment on above: Non- GFR Calc Platelets bldon 01-18-2022 Platelets (Bld) [#/Vol] 233 10*3/uL 150-450 [facility] Work Phone: Serum or plasma albumin stefania urement (mass/volume)on 01-18-2022 Albumin [Mass/Vol] 3.6 g/dL 3.2-5.0 [facility] Work Phone: Serum or plasma calcium stefania urement (mass/volume)on 01-18-2022 Calcium [Mass/Vol] 9.2 mg/dL 8.5-10.1 [facility] Work Phone: Serum or plasma creatinine m easurement (mass/volume)on 01-18-2022 Creatinine [Mass/Vol] 0.97 mg/dL 0.55-1.02 [facility] Work Phone: Comment on above: The validity of the calculated GFR & GFRAA in patients over 70 years has not been determined. Clinical correlation is essential. Serum or plasma urea nitroge n measurement (mass/volume)on 01-18-2022 Urea nitrogen [Mass/Vol] 18 mg/dL 7-18 [facility] Work Phone: Basophil percentageon 2020 Creatinine [Mass/Vol] 0.8 mg/dL 0.55-1.02 [facility] Work Phone: No Panel Informationon 11-17 Bedside Estimated GFR (eGFR) > 60.0000 mL/min >60 [facility] Work Phone: MRI BRAIN WO/W IVCONon 04-12 MRI BRAIN WO/W IVCON * * *Final Report* * * DATE OF EXAM: Apr 12 2021 2:24PM [facility] 0295 - MRI BRAIN WO/W IVCON / PROCEDURE REASON: brain * * * * Physician Interpretation * * * * EXAMINATION: MRI BRAIN WO/W IVCON HISTORY: Multiple sclerosis. Routine follow-up TECHNIQUE: Brain MRI with demyelinating disease protocol with and without IV gadolinium. MQ: [id number] Contrast: 12 mL Dotarem IV COMPARISON: MRI brain 06/03/2019 RESULT: MR BRAIN: Parenchymal Findings: There are multiple foci of hyperintensity on FLAIR and T2 within the white matter, compatible with the clinical diagnosis of multiple sclerosis. New T2 Lesions: None Interval Improvement: None. New Enhancing Lesions: None T2 Kila of Disease: Mild. Parenchymal Volume Loss: None. 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 IMPRESSION: Multiple intracranial white matter lesions compatible with multiple sclerosis. No new T2 lesions and no new enhancing lesions. No significant parenchymal volume loss. 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 *Note: New T2 Lesions includes both new and enlarging plaques on T2-weighted FLAIR images (new lesions greater than or equal to 5mm3 or an increase in diameter of an existing lesion by greater than or equal to 2mm). Dispatch Coordinator: [facility] Transcribe Date/Time: Apr 12 2021 2:27P Dictated by : MELIZA MOMIN MD This examination was interpreted and the report reviewed and electronically signed by: MELIZA MOMIN MD on Apr 12 2021 2:33PM EST [id number] Normal [facility] CNOVon 02-09-2021 CNOV Office Visit (UCWSTR ) ----- ANGÉLICA YO ([id number]) 1955 F Date Time Provider Department 02/09/21 3:00 PM MELI GORE [facility] During your visit today, we recorded the following information about you: Meli Gore MD 02/09/2021 3:06 PM Signed Express Care Triage Note: Patient presents to the express care after pinching her thumb in a door. She cut through the right thumb nail. There is a transverse gaping laceration through the mid right thumbnail and extending into the skin on both sides. Referred to the ER for further evaluation and treatment of wound at high risk for bone exposure. Referring Provider: SELF [[id number]] Allergies As of Date: 02/09/2021 Noted Allergy Reaction AMITRIPTYLINE 03/12/2019 2 - Rash ANTIHISTAMINES 04/28/2004 Comments: messes her head up ASA (SALICYLATES) 12/04/2008 CODEINE 04/28/2004 Comments: nausea FENTANYL 02/19/2012 14 - Other: See Comments Comments: Sweating/ Flushing MORPHINE 04/28/2004 Comments: nausea and vomiting PLAVIX (CLOPIDOGREL BISULFATE) 12/18/2011 14 - Other: See Comments Comments: Heartburn PREDNISONE 12/15/2008 Comments: Destroyed bone. 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 [F43.21]10/06/2005 MULTIPLE SCLEROSIS [G35] 10/06/2005 HYPERLIPIDEMIA NEC/NOS [E78.5] 10/06/2005 THYROID NODULE NODULE, NONTOXIC (Left) [E04.1] 11/07/2005 Abnormal Mammogram, Unspecified [R92.8] 09/14/2009 Fibrocystic Disease of Breast [N60.19] 09/28/2009 Cholelithiasis NOS [K80.20] 12/05/2010 Acute cholecystitis [K81.0] 12/07/2010 History of adenomatous polyp of colon [Z86.010] 01/20/2016 01/20/2016 Chronic GERD [K21.9] 01/20/2016 01/20/2016 Carotid artery stenosis, asymptomatic [I65.29] Peripheral vascular occlusive disease (HCC) [I7* Encounter Status:Closed by MELI GORE MD on 02/09/21 Normal [facility] XR Chest PA and Lateralon IMPRESSION: Trace linear atelectasis at the left base. Dispatch Coordinator: PSCB Transcribe Date/Time: Nov 25 2020 3:18P Dictated by : JOHANA DEUTSCH MD This examination was interpreted and the report reviewed and electronically signed by: JOHANA DEUTSCH MD on Nov 25 2020 3:19PM [facility] DIVISION OF RADIOLOGY * * *Final Report* * * DATE OF EXAM: Nov 25 2020 3:16PM WOX 5291 - XR CHEST 2V FRONTAL/LAT / PROCEDURE REASON: Cough * * * * Physician Interpretation * * * * EXAMINATION: CHEST RADIOGRAPH (2 VIEW FRONTAL & LATERAL) CLINICAL HISTORY: Cough MQ: XC2_6 EXAM DATE/TIME: 11/25/2020 3:16 PM COMPARISON: Chest x-ray dated 07/30/2020 RESULT: Lines, tubes, and devices: None. Lungs and pleura: Stable apical pleural thickening likely related to senescent change. Trace linear atelectasis at the left base. No consolidation. No lung mass. No pleural effusion. No pneumothorax. Cardiomediastinal silhouette: Stable cardiomediastinal silhouette. Bones and soft tissues: Degenerative changes are present within the thoracic spine. DIVISION OF RADIOLOGY Provider, [place] vargas Riner - 11/25/2020 * * *Final Report* * * DATE OF EXAM: Nov 25 2020 3:16PM WOX 5291 - XR CHEST 2V FRONTAL/LAT / PROCEDURE REASON: Cough * * * * Physician Interpretation * * * * EXAMINATION: CHEST RADIOGRAPH (2 VIEW FRONTAL & LATERAL) CLINICAL HISTORY: Cough MQ: XC2_6 EXAM DATE/TIME: 11/25/2020 3:16 PM COMPARISON: Chest x-ray dated 07/30/2020 RESULT: Lines, tubes, and devices: None. Lungs and pleura: Stable apical pleural thickening likely related to senescent change. Trace linear atelectasis at the left base. No consolidation. No lung mass. No pleural effusion. No pneumothorax. Cardiomediastinal silhouette: Stable cardiomediastinal silhouette. Bones and soft tissues: Degenerative changes are present within the thoracic spine. IMPRESSION IMPRESSION: Trace linear atelectasis at the left base. Dispatch Coordinator: PSCElla Transcribe Date/Time: Nov 25 2020 3:18P Dictated by : JOHANA DEUTSCH MD This examination was interpreted and the report reviewed and electronically signed by: JOHANA DEUTSCH MD on Nov 25 2020 3:19PM EST [facility] Radiology Study observation (narrative[facility] XR Chest PA and LateralOrder ed By: [facility] Provider on 11-25-2020 [facility] PROGRESSon 12-22-2017 PROGRESS HNO ID: [id number] thor: Yogesh Hartley: (none)Author Type: PhysicianType: Progress NotesFiled: 12/22/2017 12:15 [...] had no TIAs and at this point elicia is stable from that perspective. At this point in time she tells jonah is told that she has had some subclavian stenosis by her othervascular surgeon and we go into a discussion of this point in time aboutthe fact that she is also being followed by Dr. Barnett for her vasculardisease. With this being the case and with there being no real goodreason for to vascular surgeons to be following the same patient for thesame issues I discussed with the patient the possibility that potentiallysandrae should continue her follow-up with Dr. Barnett as he seems to beprimarily managing these problems here in [place]. At this point in timeI tell her that at any point we will be very glad to see her back and takecare of any problems that she wishes but I assure her that Dr. Barnett is kevin good vascular surgeon who can certainly deal with any of the issuesthat we might have to deal with with regard to her vascular disease. Atthis juncture I tell her that we will follow-up with her on an as-neededbasis as long as she continues her follow up with Dr. Barnett. She seemssatisfied with this plan and will follow-up with Dr. Barnett for futurevascular surgery concerns. I spent 15 minutes in the visit, with more than50% of the total [id number] time of the visit in counseling /coordination of care. Normal [facility] CNOVon 12-21-2017 CNOV Office Visit (AGMIL) ANGÉLICA YO ([id number]) 1955 FDate Time Provider Department12/21/17 10:30 AM YOGESH ONOFRE LILLIANEmilee During your visit today, we recorded the following information about you: Pulse Respiration Blood pressure Weight 78/minute 16/minute 132/70 63.5 kg Height 1.676 Eryn Onofre MD 12/22/2017 12:15 PM SignedThis patient is seen today in follow-up of her testing with regard to hercarotid artery disease. Dr. La performed a carotid carotid bypass on thispatient in the past and she is here today for follow-up of that as well as herperipheral vascular disease. She currently states that she is really nothaving any significant symptoms with regard to her peripheral vascularocclusive disease. At this point in time I review her Dopplers and look at thenumbers related to her carotid carotid bypass and these really no seem tochange from previous studies. I think the bypass is open and while there aresome elevated velocities I think this relates more to the angle of theanastomoses and the probe as opposed to actually any significant severestenosis. Patient is asymptomatic with no evidence of any type of carotidsymptomatology. She has no evidence of any stroke or strokelikesymptomatology. She has had no TIAs and at this point in time is stable fromthat perspective. At this point in time she tells me she is told that she hashad some subclavian stenosis by her other vascular surgeon and we go into adiscussion of this point in time about the fact that she is also being followedby Dr. Barnett for her vascular disease. With this being the case and withthere being no real good reason for to vascular surgeons to be following therobert patient for the same issues I discussed with the patient the possibilitythat potentially she should continue her follow-up with Dr. Barnett as he seemsto be primarily managing these problems here in [place]. At this point in timeI tell her that at any point we will be very glad to see her back and take careof any problems that she wishes but I assure her that Dr. Barnett is a very goodvascular surgeon who can certainly deal with any of the issues that we mighthave to deal with with regard to her vascular disease. At this juncture I tellher that we will follow-up with her on an as-needed basis as long as shecontinues her follow up with Dr. Barnett. She seems satisfied with this planand will follow-up with Dr. Barnett for future vascular surgery concerns. Ispent 15 minutes in the visit, with more than 50% of the total [id number] of the visit in counseling / coordination of care.Referring Provider: ZHANE PARRA [[id number]]Allergies As of Date: 12/21/2017 Noted Allergy ReactionANTIHISTAMINES 04/28/2004 Comments: messes her head upASA (SALICYLATES) 12/04/2008CODEINE 04/28/2004 Comments: nauseaFENTANYL 02/19/2012 14 - Other: See Comments Comments: Sweating/ FlushingMORPHINE 04/28/2004 Comments: nausea and vomitingPLAVIX (CLOPIDOGREL BISULFATE) 12/18/2011 14 - Other: See Comments Comments: HeartburnPREDNISONE 12/15/2008 Comments: Destroyed bone.VAXCTFW-OZX-CSF REDUCTASE INHIBIT*04/27/2011 5 - IntoleranceTRICOR (FENOFIBRATE MICRONIZED) 04/27/2011 5 - IntoleranceDate Reviewed: 12/21/2017Reviewed by: Mell Medina LPN - Fully AssessedReason for Visit: Peripheral Vascular Disease (PVD) [3545] Cmt: Angélica is here for follo up PVD AND Carotid stenosis. PVR AND Carotid us done 12/03/17 Stenosis [1326]Primary Visit Diagnosis:Internal carotid artery stenosis, bilateral [I65.23] Other Visit Diagnosis:Peripheral vascular occlusive disease (HCC) [I73.9]Prescriptions as of 12/21/2017 Sig: BACLOFEN 40,000 [...] capsule by mouth once *Medication notes this encounter HYDROCODONE 5 MG-ACETAMINOPHEN 325 MG TABLET >> Mell Medina LPN 12/21/2017 10:42 AM >> MELL MEDINA LPN SunDec 21, 2017 10:42 AMProblem List [...] asymptomatic [I65.29] Peripheral vascular occlusive disease (HCC) [I7*Letter TextEncounter Number: [id number] Status:Closed by YOGESH ONOFRE MD on 12/22/17 Normal [facility] Vital Signs Date Time Vital Sign Value Performing Clinician Faci lity 05-06-2025 14:44-0400 Body height 165.[address] Daron Benton MD Work Phone: [facility] 05-06-2025 14:44-0400 Body mass index (BMI) [Ratio] 18.3 kg/m2 Dr. Daron Benton MD Work Phone: [facility] 05-06-2025 14:44-0400 Body temperature 97.5 [degF] Dr. Daron Benton MD Work Phone: [facility] 05-06-2025 14:44-0400 Body weight 49.[address] Daron Benton MD Work Phone: [facility] 05-06-2025 14:44-0400 Diastolic blood pressure 79 mm[Hg] Dr. Daron Benton MD Work Phone: [facility] 05-06-2025 14:44-0400 Heart rate 74 /min Dr. Daron Benton MD Work Phone: 9(962)594-900678 [place] [address] 05-06-2025 14:44-0400 Respiratory rate 16 /min Dr. Daron Benton MD Work Phone: 3(961)018-039866 [place] [address] 05-06-2025 14:44-0400 SaO2% (BldA) [Mass fraction] 98 % Dr. Daron Benton MD Work Phone: 3(573)583-629766 [place] [address] 05-06-2025 14:44-0400 Systolic blood pressure 163 mm[Hg] Dr. Daron Benton MD Work Phone: 5(259)743-376166 [place] [address] 04-22-2025 14:14-0400 Body temperature 97.7 [degF] Dr. Daron Benton MD Work Phone: 5(838)283-207566 [place] [address] 04-22-2025 14:14-0400 Diastolic blood pressure 74 mm[Hg] Dr. Daron Benton MD Work Phone: 3(129)907-741666 [place] [address] 04-22-2025 14:14-0400 Heart rate 124 /min Dr. Daron Benton MD Work Phone: 2(731)923-627166 [place] [address] 04-22-2025 14:14-0400 Respiratory rate 18 /min Dr. Daron Benton MD Work Phone: 5(675)087-259566 [place] [address] 04-22-2025 14:14-0400 SaO2% (BldA) [Mass fraction] 94 % Dr. Daron Benton MD Work Phone: 4(290)919-132566 [place] [address] 04-22-2025 14:14-0400 Systolic blood pressure 101 mm[Hg] Dr. Daron Benton MD Work Phone: 1(190)813-911766 [place] [address] 04-21-2025 15:30-0400 Body height 165.[address] Daron Benton MD Work Phone: 4(128)865-485766 [place] [address] 04-21-2025 15:30-0400 Body mass index (BMI) [Ratio] 16.7 kg/m2 Dr. Daron Benton MD Work Phone: 4(458)022-684066 [place] [address] 04-21-2025 15:30-0400 Body weight 45.[address] Daron Benton MD Work Phone: [facility] 04-18-2025 21:23-0400 Body temperature 98.9 [degF] Dr. Daron Benton MD Work Phone: [facility] 04-18-2025 21:23-0400 Diastolic blood pressure 79 mm[Hg] Dr. Daron Benton MD Work Phone: 9(817)608-824678 [place] [address] 04-18-2025 21:23-0400 Heart rate 62 /min Dr. Daron Benton MD Work Phone: [facility] 04-18-2025 21:23-0400 Respiratory rate 21 /min Dr. Daron Benton MD Work Phone: 3(162)592-629054 [address] 04-18-2025 21:23-0400 SaO2% (BldA) [Mass fraction] 100 % Dr. Daron Benton MD Work Phone: 9(110)615-633078 [place] [address] 04-18-2025 21:23-0400 Systolic blood pressure 141 mm[Hg] Dr. Daron Benton MD Work Phone: [facility] 04-18-2025 18:17-0400 Body height 165.[address] Daron Benton MD Work Phone: 4(352)364-192454 [address] 04-18-2025 18:17-0400 Body mass index (BMI) [Ratio] 16.9 kg/m2 Dr. Daron Benton MD Work Phone: [facility] 04-18-2025 18:17-0400 Body weight 46.[address] Daorn Benton MD Work Phone: [facility] 04-18-2025 01:13-0400 Body temperature 97.7 [degF] Dr. Daron Benton MD Work Phone: [facility] 04-18-2025 01:13-0400 Diastolic blood pressure 68 mm[Hg] Dr. Daron Benton MD Work Phone: [facility] 04-18-2025 01:13-0400 Heart rate 68 /min Dr. Daron Benton MD Work Phone: 3(242)849-469778 [place] [address] 04-18-2025 01:13-0400 Respiratory rate 16 /min Dr. Daron Benton MD Work Phone: 5(190)020-603066 [place] [address] 04-18-2025 01:13-0400 SaO2% (BldA) [Mass fraction] 100 % Dr. Daron Benton MD Work Phone: 2(079)840-122266 [place] [address] 04-18-2025 01:13-0400 Systolic blood pressure 130 mm[Hg] Dr. Daron Benton MD Work Phone: 8(594)592-025966 [place] [address] 04-17-2025 22:17-0400 Body height 165.[address] Daron Benton MD Work Phone: 2(567)354-074366 [place] [address] 04-17-2025 22:17-0400 Body mass index (BMI) [Ratio] 16.9 kg/m2 Dr. Daron Benton MD Work Phone: 0(415)087-981166 [place] [address] 04-17-2025 22:17-0400 Body weight 46.[address] Daron Benton MD Work Phone: 5(305)245-350766 [place] [address] 04-11-2025 16:10-0400 Body temperature 97.6 [degF] Dr. Daron Benton MD Work Phone: 3(091)176-226466 [place] [address] 04-11-2025 16:10-0400 Diastolic blood pressure 67 mm[Hg] Dr. Daron Benton MD Work Phone: 2(533)898-170466 [place] [address] 04-11-2025 16:10-0400 Heart rate 56 /min Dr. Daron Benton MD Work Phone: 3(498)713-165366 [place] [address] 04-11-2025 16:10-0400 Respiratory rate 18 /min Dr. Daron Benton MD Work Phone: 9(267)604-465566 [place] [address] 04-11-2025 16:10-0400 SaO2% (BldA) [Mass fraction] 100 % Dr. Daron Benton MD Work Phone: 0(966)858-587566 [place] [address] 04-11-2025 16:10-0400 Systolic blood pressure 124 mm[Hg] Dr. Daron Benton MD Work Phone: 6(467)493-777766 [place] [address] 04-11-2025 13:17-0400 Body mass index (BMI) [Ratio] 19.1 kg/m2 Dr. Daron Benton MD Work Phone: [facility] 04-11-2025 13:17-0400 Body weight 52.[address] Daron Benton MD Work Phone: [facility] 04-08-2025 15:20-0400 Diastolic blood pressure 88 mm[Hg] Lizz Lynn SALES [employer] - [employer] RESPONSE DIRECTOR Work Phone: [facility] 04-08-2025 15:20-0400 Heart rate 70 /min Lizz Lynn SALES [employer]ISE ASSOCIATE - DISASTER RESPONSE DIRECTOR Work Phone: [facility] 04-08-2025 15:20-0400 Systolic blood pressure 151 mm[Hg] Lizzjeniffer Lynn SALES MERCH[employer]ISE ASSOCIATE - DISASTER RESPONSE DIRECTOR Work Phone: [facility] 04-08-2025 14:15-0400 Body height 167.6 cm Lizz Lynn SALES MERCH[employer]ISE ASSOCIATE - DISASTER RESPONSE DIRECTOR Work Phone: [facility] 04-08-2025 14:15-0400 Body mass index (BMI) [Ratio] 17.53 kg/m2 Lizz Lynn SALES MERCH[employer]ISE ASSOCIATE - DISASTER RESPONSE DIRECTOR Work Phone: [facility] 04-08-2025 14:15-0400 Body weight 49.26 kg Lizz Lynn SALES MERCH[employer]ISE ASSOCIATE - DISASTER RESPONSE DIRECTOR Work Phone: [facility] 04-02-2025 22:25-0400 Body temperature 98.1 [degF] Dr. Daron Benton MD Work Phone: [facility] 04-02-2025 22:25-0400 Diastolic blood pressure 79 mm[Hg] Dr. Daron Benton MD Work Phone: [facility] 04-02-2025 22:25-0400 Heart rate 73 /min Dr. Daron Benton MD Work Phone: [facility] 04-02-2025 22:25-0400 Respiratory rate 18 /min Dr. Daron Benton MD Work Phone: [facility] 04-02-2025 22:25-0400 SaO2% (BldA) [Mass fraction] 100 % Dr. Daron Benton MD Work Phone: [facility] 04-02-2025 22:25-0400 Systolic blood pressure 105 mm[Hg] Dr. Daron Benton MD Work Phone: [facility] 04-02-2025 19:21-0400 Body height 165.[address] Daron Benton MD Work Phone: [facility] 04-02-2025 19:21-0400 Body mass index (BMI) [Ratio] 18.8 kg/m2 Dr. Daron Benton MD Work Phone: [facility] 04-02-2025 19:21-0400 Body weight 51.[address] Daron Benton MD Work Phone: [facility] 03-04-2025 10:31-0400 Body height 167.6 cm Lizz Lynn SALES MERCH[employer]ISE ASSOCIATE - DISASTER RESPONSE DIRECTOR Work Phone: [facility] 03-04-2025 10:31-0400 Body mass index (BMI) [Ratio] 18.34 kg/m2 Lizz Lynn SALES MERCH[employer]ISE ASSOCIATE - DISASTER RESPONSE DIRECTOR Work Phone: [facility] 03-04-2025 10:31-0400 Body weight 51.53 kg Lizz Lynn SALES MERCH[employer]ISE ASSOCIATE - DISASTER RESPONSE DIRECTOR Work Phone: [facility] 03-04-2025 10:31-0400 Diastolic blood pressure 75 mm[Hg] Lizz Lynn SALES MERCH[employer]ISE ASSOCIATE - DISASTER RESPONSE DIRECTOR Work Phone: [facility] 03-04-2025 10:31-0400 Heart rate 64 /min Lizz Lynn SALES MERCH[employer]ISE ASSOCIATE - DISASTER RESPONSE DIRECTOR Work Phone: [facility] 03-04-2025 10:31-0400 Systolic blood pressure 139 mm[Hg] Lizz Lynn SALES MERCH[employer]ISE ASSOCIATE - DISASTER RESPONSE DIRECTOR Work Phone: [facility] 02-20-2025 09:08-0400 Body mass index (BMI) [Ratio] 19.8 kg/m2 Dr. Daron Benton MD Work Phone: [facility] 02-20-2025 09:08-0400 Body weight 53.[address] Daron Benton MD Work Phone: [facility] 02-20-2025 09:08-0400 Diastolic blood pressure 74 mm[Hg] Dr. Daron Benton MD Work Phone: 5(758)447-266578 [place] [address] 02-20-2025 09:08-0400 Heart rate 50 /min Dr. Daron Benton MD Work Phone: 0(435)223-356866 [place] [address] 02-20-2025 09:08-0400 Respiratory rate 18 /min Dr. Daron Benton MD Work Phone: 6(352)239-268466 [place] [address] 02-20-2025 09:08-0400 SaO2% (BldA) [Mass fraction] 100 % Dr. Daron Benton MD Work Phone: 3(272)859-857378 [place] [address] 02-20-2025 09:08-0400 Systolic blood pressure 121 mm[Hg] Dr. Daron Benton MD Work Phone: 8(936)358-276354 [address] 01-13-2025 16:01-0500 Heart rate 59 /min Dr. Daron Benton MD Work Phone: 6(675)287-502078 [place] [address] 01-13-2025 16:01-0500 Respiratory rate 16 /min Dr. Daron Benton MD Work Phone: 6(450)023-326078 [place] [address] 01-13-2025 14:34-0500 Body temperature 98 [degF] Dr. Daron Benton MD Work Phone: 4(648)700-374278 [place] [address] 01-13-2025 14:34-0500 Diastolic blood pressure 95 mm[Hg] Dr. Daron Benton MD Work Phone: 4(015)270-693078 [place] [address] 01-13-2025 14:34-0500 Inhaled oxygen flow rate 2 L/min Dr. Daron Benton MD Work Phone: 8(314)473-598278 [place] [address] 01-13-2025 14:34-0500 SaO2% (BldA) [Mass fraction] 94 % Dr. Daron Benton MD Work Phone: 7(640)105-045178 [place] [address] 01-13-2025 14:34-0500 Systolic blood pressure 111 mm[Hg] Dr. Daron Benton MD Work Phone: 5(664)114-375466 [place] [address] 01-13-2025 04:47-0500 Body mass index (BMI) [Ratio] 18.9 kg/m2 Dr. Daron Benton MD Work Phone: 1(019)948-088566 [place] [address] 01-13-2025 04:47-0500 Body weight 51.[address] Daron Benton MD Work Phone: 2(571)400-883166 [place] [address] 12-24-2024 10:03-0500 Body mass index (BMI) [Ratio] 19.4 kg/m2 Dr. Daron Benton MD Work Phone: 0(179)832-600666 [place] [address] 12-24-2024 10:03-0500 Body temperature 96.7 [degF] Dr. Daron Benton MD Work Phone: 7(666)685-669266 [place] [address] 12-24-2024 10:03-0500 Body weight 53.[address] Daron Benton MD Work Phone: 1(785)654-949166 [place] [address] 12-24-2024 10:03-0500 Diastolic blood pressure 77 mm[Hg] Dr. Daron Benton MD Work Phone: 5(016)572-939366 [place] [address] 12-24-2024 10:03-0500 Heart rate 69 /min Dr. Daron Benton MD Work Phone: 6(369)313-883066 [place] [address] 12-24-2024 10:03-0500 Respiratory rate 18 /min Dr. Daron Benton MD Work Phone: 7(706)463-800166 [place] [address] 12-24-2024 10:03-0500 SaO2% (BldA) [Mass fraction] 95 % Dr. Daron Benton MD Work Phone: 0(121)253-395766 [place] [address] 12-24-2024 10:03-0500 Systolic blood pressure 132 mm[Hg] Dr. Daron Benton MD Work Phone: 3(000)052-646666 [place] [address] 12-19-2024 13:20-0500 Body mass index (BMI) [Ratio] 19.4 kg/m2 Dr. Daron Benton MD Work Phone: 6(956)343-720678 [place] [address] 12-19-2024 13:20-0500 Body weight 53.[address] Daron Benton MD Work Phone: 6(903)838-244466 [place] [address] 12-19-2024 13:20-0500 Diastolic blood pressure 77 mm[Hg] Dr. Daron Benton MD Work Phone: 9(569)956-821166 [place] [address] 12-19-2024 13:20-0500 Heart rate 67 /min Dr. Daron Benton MD Work Phone: 0(231)071-750866 [place] [address] 12-19-2024 13:20-0500 Respiratory rate 18 /min Dr. Daron Benton MD Work Phone: 2(409)059-278166 [place] [address] 12-19-2024 13:20-0500 SaO2% (BldA) [Mass fraction] 96 % Dr. Daron Benton MD Work Phone: 3(048)665-181166 [place] [address] 12-19-2024 13:20-0500 Systolic blood pressure 124 mm[Hg] Dr. Daron Benton MD Work Phone: 4(945)342-793866 [place] [address] 12-17-2024 14:25-0500 Body temperature 97.8 [degF] Dr. Daron Benton MD Work Phone: 3(219)348-147466 [place] [address] 12-17-2024 14:25-0500 Diastolic blood pressure 94 mm[Hg] Dr. Daron Benton MD Work Phone: 5(510)550-204466 [place] [address] 12-17-2024 14:25-0500 Heart rate 65 /min Dr. Daron Benton MD Work Phone: 5(944)174-167266 [place] [address] 12-17-2024 14:25-0500 Respiratory rate 20 /min Dr. Daron Benton MD Work Phone: 5(611)858-845166 [place] [address] 12-17-2024 14:25-0500 SaO2% (BldA) [Mass fraction] 95 % Dr. Daron Benton MD Work Phone: 2(819)768-806266 [place] [address] 12-17-2024 14:25-0500 Systolic blood pressure 151 mm[Hg] Dr. Daron Benton MD Work Phone: 8(426)423-653878 [place] [address] 12-17-2024 10:13-0500 Body mass index (BMI) [Ratio] 19.5 kg/m2 Dr. Daron Benton MD Work Phone: 1(293)023-991078 [place] [address] 12-17-2024 10:13-0500 Body weight 53.[address] Daron Benton MD Work Phone: 3(846)700-126566 [place] [address] 12-11-2024 13:50-0500 Body temperature 98 [degF] Dr. Daron Benton MD Work Phone: 6(707)644-468566 [place] [address] 12-11-2024 13:50-0500 Diastolic blood pressure 87 mm[Hg] Dr. Daron Benton MD Work Phone: 7(163)370-573566 [place] [address] 12-11-2024 13:50-0500 Heart rate 70 /min Dr. Daron Benton MD Work Phone: 3(538)678-727566 [place] [address] 12-11-2024 13:50-0500 Respiratory rate 16 /min Dr. Daron Benton MD Work Phone: 3(180)494-514666 [place] [address] 12-11-2024 13:50-0500 SaO2% (BldA) [Mass fraction] 96 % Dr. Daron Benton MD Work Phone: 4(022)521-244066 [place] [address] 12-11-2024 13:50-0500 Systolic blood pressure 139 mm[Hg] Dr. Daron Benton MD Work Phone: 0(409)055-718078 [place] [address] 12-10-2024 10:11-0500 Body weight 51.[address] Daron Benton MD Work Phone: 3(158)910-048978 [place] [address] 12-09-2024 18:00-0500 Inhaled oxygen flow rate 2 L/min Dr. Daron Benton MD Work Phone: 0(146)873-462666 [place] [address] 12-09-2024 14:59-0500 Body mass index (BMI) [Ratio] 18.8 kg/m2 Dr. Daron Benton MD Work Phone: 5(665)462-861966 [place] [address] 02-25-2024 17:00-0400 Body temperature 98.2 [degF] Dr. Daron Benton Work Phone: [facility] 02-25-2024 17:00-0400 Diastolic blood pressure 73 mm[Hg] Dr. Daron Benton Work Phone: [facility] 02-25-2024 17:00-0400 Heart rate 62 /min Dr. Daron Benton Work Phone: [facility] 02-25-2024 17:00-0400 Inhaled oxygen flow rate 2 L/min Dr. Daron Benton Work Phone: [facility] 02-25-2024 17:00-0400 Respiratory rate 16 /min Dr. Daron Benton Work Phone: [facility] 02-25-2024 17:00-0400 SaO2% (BldA) [Mass fraction] 98 % Dr. Daron Benton Work Phone: [facility] 02-25-2024 17:00-0400 Systolic blood pressure 136 mm[Hg] Dr. Daron Benton Work Phone: [facility] 02-24-2024 23:41-0400 Body height [address] Daron Benton Work Phone: [facility] 02-24-2024 23:41-0400 Body mass index (BMI) [Ratio] 19.8 kg/m2 Dr. Daron Benton Work Phone: [facility] 02-24-2024 23:41-0400 Body weight 55.[address] Daron Benton Work Phone: [facility] 02-19-2024 16:00-0400 Body temperature 97.5 [degF] Dr. Daron Benton Work Phone: [facility] 02-19-2024 16:00-0400 Diastolic blood pressure 71 mm[Hg] Dr. Daron Benton Work Phone: [facility] 02-19-2024 16:00-0400 Heart rate 68 /min Dr. Daron Benton Work Phone: [facility] 02-19-2024 16:00-0400 Respiratory rate 17 /min Dr. Daron Benton Work Phone: [facility] 02-19-2024 16:00-0400 SaO2% (BldA) [Mass fraction] 92 % Dr. Daron Benton Work Phone: [facility] 02-19-2024 16:00-0400 Systolic blood pressure 124 mm[Hg] Dr. Daron Benton Work Phone: [facility] 02-19-2024 10:52-0400 Body height 167.[address] Daron Benton Work Phone: [facility] 02-19-2024 10:52-0400 Body mass index (BMI) [Ratio] 21.8 kg/m2 Dr. Daron Benton Work Phone: 0(259)965-755078 [place] [address] 02-19-2024 10:52-0400 Body weight 61.[address] Daron Benton Work Phone: [facility] 01-18-2024 11:47-0500 Body temperature 97.7 [degF] Dr. Daron Benton Work Phone: [facility] 01-18-2024 11:47-0500 Diastolic blood pressure 70 mm[Hg] Dr. Daron Benton Work Phone: [facility] 01-18-2024 11:47-0500 Heart rate 62 /min Dr. Daron Benton Work Phone: [facility] 01-18-2024 11:47-0500 Respiratory rate 18 /min Dr. Daron Benton Work Phone: [facility] 01-18-2024 11:47-0500 SaO2% (BldA) [Mass fraction] 95 % Dr. Daron Benton Work Phone: [facility] 01-18-2024 11:47-0500 Systolic blood pressure 121 mm[Hg] Dr. Daron Benton Work Phone: [facility] 01-18-2024 10:23-0500 Body height 165.[address] Daron Benton Work Phone: [facility] 01-18-2024 10:23-0500 Body mass index (BMI) [Ratio] 20.4 kg/m2 Dr. Daron Benton Work Phone: [facility] 01-18-2024 10:23-0500 Body weight 55.[address] Daron Benton Work Phone: [facility] 01-11-2024 08:22-0500 Diastolic blood pressure 57 mm[Hg] Dr. Daron Benton Work Phone: [facility] 01-11-2024 08:22-0500 Systolic blood pressure 132 mm[Hg] Dr. Daron Benton Work Phone: [facility] 01-11-2024 08:13-0500 Body temperature 98.5 [degF] Dr. Daron Benton Work Phone: [facility] 01-11-2024 08:13-0500 Heart rate 61 /min Dr. Daron Benton Work Phone: [facility] 01-11-2024 08:13-0500 Respiratory rate 16 /min Dr. Daron Benton Work Phone: [facility] 01-11-2024 08:13-0500 SaO2% (BldA) [Mass fraction] 98 % Dr. Daron Benton Work Phone: [facility] 01-11-2024 06:51-0500 Inhaled oxygen flow rate 2 L/min Dr. Daron Benton Work Phone: [facility] 01-11-2024 02:14-0500 Body height 165.[address] Daron Benton Work Phone: [facility] 01-11-2024 02:14-0500 Body mass index (BMI) [Ratio] 20.1 kg/m2 Dr. Daron Benton Work Phone: [facility] 01-11-2024 02:14-0500 Body weight [address] Daron Benton Work Phone: [facility] 12-21-2023 12:53-0500 Body mass index (BMI) [Ratio] 20.5 kg/m2 Dr. Daron Benton Work Phone: [facility] 12-21-2023 12:53-0500 Body weight 55.[address] Daron Benton Work Phone: [facility] 12-21-2023 12:53-0500 Diastolic blood pressure 89 mm[Hg] Dr. Daron Benton Work Phone: [facility] 12-21-2023 12:53-0500 Heart rate 50 /min Dr. Daron Benton Work Phone: [facility] 12-21-2023 12:53-0500 Respiratory rate 18 /min Dr. Daron Benton Work Phone: [facility] 12-21-2023 12:53-0500 SaO2% (BldA) [Mass fraction] 100 % Dr. Daron Benton Work Phone: [facility] 12-21-2023 12:53-0500 Systolic blood pressure 193 mm[Hg] Dr. Daron Benton Work Phone: [facility] 12-14-2023 13:43-0500 Body mass index (BMI) [Ratio] 19.37 kg/m2 Lizz Lynn [employer] Work Phone: [facility] 12-14-2023 13:43-0500 Body weight 54.43 kg Lizz Lynn SALES [employer] - [employer] RES[employer]SE DIRECTOR Work Phone: [facility] 12-14-2023 13:43-0500 Diastolic blood pressure 78 mm[Hg] Lizz Lynn SALES [employer] ASS[employer] - [employer]ISASTER RESPONSE DIRECTOR Work Phone: [facility] 12-14-2023 13:43-0500 Heart rate 66 /min Lizz Lynn SALES [employer] ASS[employer]ATE - [employer]ISASTER RESPONSE DIRECTOR Work Phone: [facility] 12-14-2023 13:43-0500 Systolic blood pressure 186 mm[Hg] Lizz Lynn SALES MER[employer] ASS[employer] - [employer]ISASTER RESPONSE DIRECTOR Work Phone: [facility] 12-07-2023 14:27-0500 Body temperature 97.4 [degF] Dr. Daron Benton Work Phone: [facility] 12-07-2023 14:27-0500 Diastolic blood pressure 79 mm[Hg] Dr. Daron Benton Work Phone: [facility] 12-07-2023 14:27-0500 Heart rate 50 /min Dr. Daron Benton Work Phone: [facility] 12-07-2023 14:27-0500 Respiratory rate 12 /min Dr. Daron Benton Work Phone: [facility] 12-07-2023 14:27-0500 SaO2% (BldA) [Mass fraction] 98 % Dr. Daron Benton Work Phone: [facility] 12-07-2023 14:27-0500 Systolic blood pressure 140 mm[Hg] Dr. Daron Benton Work Phone: [facility] 12-06-2023 16:45-0500 Body height 165.[address] Daron Benton Work Phone: [facility] 12-06-2023 16:45-0500 Body weight [address] Daron Benton Work Phone: [facility] 12-04-2023 07:00-0500 Inhaled oxygen flow rate 1 L/min Dr. Daron Benton Work Phone: [facility] 12-02-2023 12:37-0500 Body mass index (BMI) [Ratio] 20.5 kg/m2 Dr. Daron Benton Work Phone: [facility] 12-02-2023 11:40-0500 Diastolic blood pressure 48 mm[Hg] Dr. Daron Benton Work Phone: [facility] 12-02-2023 11:40-0500 Heart rate 48 /min Dr. Daron Benton Work Phone: [facility] 12-02-2023 11:40-0500 Respiratory rate 15 /min Dr. Daron Benton Work Phone: [facility] 12-02-2023 11:40-0500 SaO2% (BldA) [Mass fraction] 94 % Dr. Daron Benton Work Phone: [facility] 12-02-2023 11:40-0500 Systolic blood pressure 176 mm[Hg] Dr. Daron Benton Work Phone: [facility] 12-02-2023 06:33-0500 Body height 165.[address] Daron Benton Work Phone: [facility] 12-02-2023 06:33-0500 Body mass index (BMI) [Ratio] 20.5 kg/m2 Dr. Daron Benton Work Phone: [facility] 12-02-2023 06:33-0500 Body temperature 97.6 [degF] Dr. Daron Benton Work Phone: [facility] 12-02-2023 06:33-0500 Body weight [address] Daron Benton Work Phone: 3(149)661-397478 [place] [address] 11-27-2023 12:32-0500 Body height 165.[address] Daron Benton Work Phone: [facility] 11-27-2023 09:46-0500 SaO2% (BldA) [Mass fraction] 96 % Dr. Daron Benton Work Phone: [facility] 11-27-2023 09:32-0500 Body temperature 98 [degF] Dr. Daron Benton Work Phone: [facility] 11-27-2023 09:32-0500 Diastolic blood pressure 97 mm[Hg] Dr. Daron Benton Work Phone: [facility] 11-27-2023 09:32-0500 Heart rate 52 /min Dr. Daron Benton Work Phone: [facility] 11-27-2023 09:32-0500 Respiratory rate 14 /min Dr. Daron Benton Work Phone: [facility] 11-27-2023 09:32-0500 Systolic blood pressure 196 mm[Hg] Dr. Daron Benton Work Phone: [facility] 11-27-2023 09:01-0500 Body mass index (BMI) [Ratio] 20 kg/m2 Dr. Daron Benton Work Phone: [facility] 11-27-2023 09:01-0500 Body weight 54.[address] Daron Benton Work Phone: [facility] 11-26-2023 15:22-0500 Diastolic blood pressure 81 mm[Hg] Dr. Daron Benton Work Phone: 6(316)121-089754 [address] 11-26-2023 15:22-0500 Heart rate 69 /min Dr. Daron Benton Work Phone: 9(286)450-859278 [place] [address] 11-26-2023 15:22-0500 Respiratory rate 16 /min Dr. Daron Benton Work Phone: [facility] 11-26-2023 15:22-0500 SaO2% (BldA) [Mass fraction] 96 % Dr. Daron Benton Work Phone: [facility] 11-26-2023 15:22-0500 Systolic blood pressure 149 mm[Hg] Dr. Daron Benton Work Phone: 6(213)148-959778 [place] [address] 11-26-2023 12:47-0500 Body height 165.[address] Daron Benton Work Phone: [facility] 11-26-2023 12:47-0500 Body mass index (BMI) [Ratio] 20.2 kg/m2 Dr. Daron Benton Work Phone: [facility] 11-26-2023 12:47-0500 Body temperature 97 [degF] Dr. Daron Benton Work Phone: [facility] 11-26-2023 12:47-0500 Body weight 55.[address] Daron Benton Work Phone: 2(348)758-060378 [place] [address] 11-21-2023 11:50-0500 Body temperature 98.3 [degF] Dr. Daron Benton Work Phone: [facility] 11-21-2023 11:50-0500 Diastolic blood pressure 72 mm[Hg] Dr. Daron Benton Work Phone: [facility] 11-21-2023 11:50-0500 Heart rate 54 /min Dr. Daron Benton Work Phone: 9(234)472-054778 [place] [address] 11-21-2023 11:50-0500 Respiratory rate 16 /min Dr. Daron Benton Work Phone: 3(329)377-011054 [address] 11-21-2023 11:50-0500 SaO2% (BldA) [Mass fraction] 94 % Dr. Daron Benton Work Phone: 2(459)141-001378 [place] [address] 11-21-2023 11:50-0500 Systolic blood pressure 134 mm[Hg] Dr. Daron Benton Work Phone: 3(935)672-658254 [address] 11-21-2023 05:35-0500 Body mass index (BMI) [Ratio] 20.4 kg/m2 Dr. Daron Benton Work Phone: 3(202)689-068578 [place] [address] 11-21-2023 05:35-0500 Body weight 55.[address] Daron Benton Work Phone: 1(187)702-559378 [place] [address] 11-18-2023 15:44-0500 Body height 165.[address] Daron Benton Work Phone: [facility] 11-18-2023 15:18-0500 Body temperature 98.2 [degF] Dr. Daron Benton Work Phone: [facility] 11-18-2023 15:18-0500 Diastolic blood pressure 75 mm[Hg] Dr. Daron Benton Work Phone: [facility] 11-18-2023 15:18-0500 Heart rate 72 /min Dr. Daron Benton Work Phone: [facility] 11-18-2023 15:18-0500 Respiratory rate 17 /min Dr. Daron Benton Work Phone: [facility] 11-18-2023 15:18-0500 SaO2% (BldA) [Mass fraction] 93 % Dr. Daron Benton Work Phone: [facility] 11-18-2023 15:18-0500 Systolic blood pressure 161 mm[Hg] Dr. Daron Benton Work Phone: [facility] 11-18-2023 11:43-0500 Body height 165.[address] Daron Benton Work Phone: [facility] 11-18-2023 11:43-0500 Body mass index (BMI) [Ratio] 20.9 kg/m2 Dr. Daron Benton Work Phone: 7(902)971-145654 [address] 11-18-2023 11:43-0500 Body weight 57.[address] Daron Benton Work Phone: 0(707)231-422978 [place] [address] 11-16-2023 11:05-0500 Body height 165.[address] Daron Benton Work Phone: [facility] 11-16-2023 11:05-0500 Body weight 54.[address] Daron Benton Work Phone: 6(521)174-476254 [address] 11-16-2023 09:53-0500 Heart rate 66 /min Dr. Daron Benton Work Phone: 9(592)460-725678 [place] [address] 11-16-2023 09:31-0500 Body temperature 97.7 [degF] Dr. Daron Benton Work Phone: [facility] 11-16-2023 09:31-0500 Diastolic blood pressure 71 mm[Hg] Dr. Daron Benton Work Phone: [facility] 11-16-2023 09:31-0500 Respiratory rate 16 /min Dr. Daron Benton Work Phone: [facility] 11-16-2023 09:31-0500 SaO2% (BldA) [Mass fraction] 96 % Dr. Daron Benton Work Phone: 4(611)535-898454 [address] 11-16-2023 09:31-0500 Systolic blood pressure 138 mm[Hg] Dr. Daron Benton Work Phone: 5(448)752-421066 [place] [address] 11-16-2023 01:54-0500 Body mass index (BMI) [Ratio] 19.9 kg/m2 Dr. Daron Benton Work Phone: 6(997)474-518066 [place] [address] 11-15-2023 15:21-0500 Diastolic blood pressure 49 mm[Hg] Dr. Daron Benton Work Phone: 1(230)022-387966 [place] [address] 11-15-2023 15:21-0500 Heart rate 60 /min Dr. aDron Benton Work Phone: 3(880)464-875666 [place] [address] 11-15-2023 15:21-0500 Respiratory rate 18 /min Dr. Daron Benton Work Phone: 2(102)387-444766 [place] [address] 11-15-2023 15:21-0500 SaO2% (BldA) [Mass fraction] 98 % Dr. Daron Benton Work Phone: 8(167)185-877466 [place] [address] 11-15-2023 15:21-0500 Systolic blood pressure 119 mm[Hg] Dr. Daron Benton Work Phone: 4(100)331-352066 [place] [address] 11-15-2023 13:28-0500 Body temperature 97.8 [degF] Dr. Daron Benton Work Phone: 8(770)824-344366 [place] [address] 11-15-2023 11:22-0500 Body height 165.[address] Daron Benton Work Phone: 5(489)353-524666 [place] [address] 11-15-2023 11:22-0500 Body mass index (BMI) [Ratio] 21.3 kg/m2 Dr. Daron Benton Work Phone: 3(277)017-651666 [place] [address] 11-15-2023 11:22-0500 Body weight 58.[address] Daron Benton Work Phone: 9(176)805-678366 [place] [address] 11-02-2023 13:04-0500 Body mass index (BMI) [Ratio] 20.5 kg/m2 Dr. Daron Benton Work Phone: 9(860)690-795278 [place] [address] 11-02-2023 13:04-0500 Body weight 55.[address] Daron Bentno Work Phone: [facility] 11-02-2023 13:04-0500 Diastolic blood pressure 68 mm[Hg] Dr. Daron Benton Work Phone: [facility] 11-02-2023 13:04-0500 Heart rate 89 /min Dr. Daron Benton Work Phone: [facility] 11-02-2023 13:04-0500 Respiratory rate 18 /min Dr. Daron Benton Work Phone: [facility] 11-02-2023 13:04-0500 SaO2% (BldA) [Mass fraction] 100 % Dr. Daron Benton Work Phone: [facility] 11-02-2023 13:04-0500 Systolic blood pressure 109 mm[Hg] Dr. Daron Benton Work Phone: [facility] 10-05-2023 08:07-0500 Diastolic blood pressure 82 mm[Hg] Dr. Daron Benton Work Phone: [facility] 10-05-2023 08:07-0500 Respiratory rate 16 /min Dr. Daron Benton Work Phone: [facility] 10-05-2023 08:07-0500 SaO2% (BldA) [Mass fraction] 96 % Dr. Daron Benton Work Phone: [facility] 10-05-2023 08:07-0500 Systolic blood pressure 214 mm[Hg] Dr. Daron Benton Work Phone: [facility] 10-05-2023 00:43-0500 Body height 165.[address] Daron Benton Work Phone: [facility] 10-05-2023 00:43-0500 Body mass index (BMI) [Ratio] 21.7 kg/m2 Dr. Daron Benton Work Phone: [facility] 10-05-2023 00:43-0500 Body temperature 97.8 [degF] Dr. Daron Benton Work Phone: [facility] 10-05-2023 00:43-0500 Body weight 59.[address] Daron Benton Work Phone: [facility] 10-05-2023 00:43-0500 Heart rate 55 /min Dr. Daron Benton Work Phone: [facility] 05-24-2023 11:16-0400 Body weight 52.[address] Daron Benton Work Phone: [facility] 05-24-2023 11:16-0400 Diastolic blood pressure 86 mm[Hg] Dr. Daron Benton Work Phone: [facility] 05-24-2023 11:16-0400 Heart rate 56 /min Dr. Daron Benton Work Phone: [facility] 05-24-2023 11:16-0400 Respiratory rate 20 /min Dr. Daron Benton Work Phone: [facility] 05-24-2023 11:16-0400 Systolic blood pressure 120 mm[Hg] Dr. Daron Benton Work Phone: [facility] 05-24-2023 09:19-0400 Body height 165.[address] Daron Benton Work Phone: [facility] 04-08-2023 12:14-0400 Diastolic blood pressure 87 mm[Hg] Dr. Daron Benton Work Phone: [facility] 04-08-2023 12:14-0400 Heart rate 50 /min Dr. Daron Benton Work Phone: [facility] 04-08-2023 12:14-0400 Respiratory rate 12 /min Dr. Daron Benton Work Phone: [facility] 04-08-2023 12:14-0400 SaO2% (BldA) [Mass fraction] 98 % Dr. Daron Benton Work Phone: [facility] 04-08-2023 12:14-0400 Systolic blood pressure 162 mm[Hg] Dr. Daron Benton Work Phone: [facility] 04-08-2023 09:19-0400 Body height 165.[address] Daron Benton Work Phone: [facility] 04-08-2023 09:19-0400 Body mass index (BMI) [Ratio] 19.1 kg/m2 Dr. Daron Benton Work Phone: [facility] 04-08-2023 09:19-0400 Body temperature 97.5 [degF] Dr. Daron Benton Work Phone: 0(002)[phone] [place] [address] 04-08-2023 09:19-0400 Body weight [address] Daron Benton Work Phone: 5(242)[phone] [address] 03-31-2023 15:10-0400 Diastolic blood pressure 82 mm[Hg] Dr. Daron Benton Work Phone: 5(870)[phone] [place] [address] 03-31-2023 15:10-0400 Heart rate 45 /min Dr. Daron Benton Work Phone: 8(252)[phone] [place] [address] 03-31-2023 15:10-0400 Respiratory rate 16 /min Dr. Daron Benton Work Phone: 0(895)[phone] [address] 03-31-2023 15:10-0400 SaO2% (BldA) [Mass fraction] 100 % Dr. Daron Benton Work Phone: [facility] 03-31-2023 15:10-0400 Systolic blood pressure 198 mm[Hg] Dr. Daron Benton Work Phone: [facility] 03-31-2023 12:40-0400 Body mass index (BMI) [Ratio] 19.5 kg/m2 Dr. Daron Benton Work Phone: [facility] 03-31-2023 12:40-0400 Body weight 53.[address] Daron Benton Work Phone: [facility] 03-31-2023 12:33-0400 Body height 165.[address] Daron Benton Work Phone: [facility] 03-31-2023 12:33-0400 Body temperature 96.9 [degF] Dr. Daron Benton Work Phone: [facility] 03-16-2023 12:26-0400 Body height 165.[address] Daron Benton Work Phone: [facility] 03-16-2023 12:26-0400 Body mass index (BMI) [Ratio] 19.1 kg/m2 Dr. Daron Benton Work Phone: [facility] 03-16-2023 12:26-0400 Body temperature 97.3 [degF] Dr. Daron Benton Work Phone: [facility] 03-16-2023 12:26-0400 Body weight 52.[address] Daron Benton Work Phone: 8(378)[phone] [place] [address] 03-16-2023 12:26-0400 Diastolic blood pressure 85 mm[Hg] Dr. Daron Benton Work Phone: [facility] 03-16-2023 12:26-0400 Heart rate 58 /min Dr. Daron Benton Work Phone: [facility] 03-16-2023 12:26-0400 Respiratory rate 14 /min Dr. Daron Benton Work Phone: [facility] 03-16-2023 12:26-0400 SaO2% (BldA) [Mass fraction] 100 % Dr. Daron Benton Work Phone: [facility] 03-16-2023 12:26-0400 Systolic blood pressure 163 mm[Hg] Dr. Daron Benton Work Phone: 7(480)[phone] [place] [address] 11-24-2022 18:46-0500 Body height 167.[address] Daron Benton Work Phone: [facility] 11-24-2022 18:46-0500 Body mass index (BMI) [Ratio] 19.3 kg/m2 Dr. Daron Benton Work Phone: [facility] 11-24-2022 18:46-0500 Body temperature 97.2 [degF] Dr. Daron Benton Work Phone: [facility] 11-24-2022 18:46-0500 Body weight 54.[address] Daron Benton Work Phone: [facility] 11-24-2022 18:46-0500 Diastolic blood pressure 106 mm[Hg] Dr. Daron Benton Work Phone: [facility] 11-24-2022 18:46-0500 Heart rate 61 /min Dr. Daron Benton Work Phone: [facility] 11-24-2022 18:46-0500 Respiratory rate 18 /min Dr. Daron Benton Work Phone: [facility] 11-24-2022 18:46-0500 SaO2% (BldA) [Mass fraction] 100 % Dr. Daron Benton Work Phone: [facility] 11-24-2022 18:46-0500 Systolic blood pressure 159 mm[Hg] Dr. Daron Benton Work Phone: [facility] 11-09-2022 14:07-0500 Diastolic Blood Pressure Non-Invasive 66 1 TYE BARNETT MD [facility] 11-09-2022 14:07-0500 Heart rate 56 /min TYE BARNETT MD [facility] 11-09-2022 14:07-0500 Systolic Blood Pressure Non-Invasive 155 1 TYE BARNETT MD [facility] 11-09-2022 13:42-0500 Diastolic Blood Pressure Non-Invasive 69 1 TYE BARNETT MD [facility] 11-09-2022 13:42-0500 Heart rate 58 /min TYE BARNETT MD [facility] 11-09-2022 13:42-0500 Systolic Blood Pressure Non-Invasive 156 1 TYE BARNETT MD [facility] 11-09-2022 13:14-0500 Diastolic Blood Pressure Non-Invasive 86 1 TYE BARNETT MD [facility] 11-09-2022 13:14-0500 Heart rate 54 /min TYE BARNETT MD [facility] 11-09-2022 13:14-0500 Systolic Blood Pressure Non-Invasive 175 1 TYE BARNETT MD [facility] 11-09-2022 11:25-0500 Reason For Taking VItal Signs TYE BARNETT MD [facility] 11-09-2022 11:25-0500 Respiratory rate 16 /min TYE BARNETT MD [facility] 11-09-2022 11:03-0500 Respiratory rate 16 /min TYE BARNETT MD [facility] 11-09-2022 10:38-0500 Respiratory rate 16 /min TYE BARNETT MD [facility] 11-09-2022 06:29-0500 Blood Pressure Location TYE BARNETT MD [facility] 11-09-2022 06:29-0500 Body height 167.6 cm TYE BARNETT MD [facility] 11-09-2022 06:29-0500 Body temperature 97.7 [degF] TYE BARNETT MD [facility] 11-09-2022 06:29-0500 Body weight 54.8 kg TYE BARNETT MD [facility] 11-09-2022 06:29-0500 Body weight 19.51 kg/m2 TYE BARNETT MD [facility] 10-26-2022 13:20-0500 Body mass index (BMI) [Ratio] 19 kg/m2 Dr. Daron Benton Work Phone: [facility] 10-26-2022 13:20-0500 Body weight 53.[address] Daron Benton Work Phone: [facility] 10-26-2022 13:20-0500 Diastolic blood pressure 70 mm[Hg] Dr. Daron Benton Work Phone: [facility] 10-26-2022 13:20-0500 Heart rate 51 /min Dr. Daron Benton Work Phone: [facility] 10-26-2022 13:20-0500 Respiratory rate 18 /min Dr. Daron Benton Work Phone: [facility] 10-26-2022 13:20-0500 SaO2% (BldA) [Mass fraction] 100 % Dr. Daron Benton Work Phone: [facility] 10-26-2022 13:20-0500 Systolic blood pressure 129 mm[Hg] Dr. Daron Benton Work Phone: [facility] 05-16-2022 12:37-0400 Body height 167.[address] Daron Benton Work Phone: [facility] Work Phone: 05-16-2022 12:37-0400 Body mass index (BMI) [Ratio] 19.5 kg/m2 Dr. Daron Benton Work Phone: [facility] Work Phone: 05-16-2022 12:37-0400 Body weight 54.[address] Daron Benton Work Phone: [facility] Work Phone: 05-16-2022 12:37-0400 Diastolic blood pressure 75 mm[Hg] Dr. Daron Benton Work Phone: [facility] Work Phone: 05-16-2022 12:37-0400 Heart rate 57 /min Dr. Daron Benton Work Phone: [facility] Work Phone: 05-16-2022 12:37-0400 Respiratory rate 18 /min Dr. Daron Benton Work Phone: [facility] Work Phone: 05-16-2022 12:37-0400 SaO2% (BldA) [Mass fraction] 98 % Dr. Daron Benton Work Phone: [facility] Work Phone: 05-16-2022 12:37-0400 Systolic blood pressure 115 mm[Hg] Dr. Daron Benton Work Phone: [facility] Work Phone: 02-22-2022 10:52-0400 Body height 167.[address] Daron Benton Work Phone: [facility] Work Phone: 02-22-2022 10:52-0400 Body mass index (BMI) [Ratio] 20.1 kg/m2 Dr. Daron Benton Work Phone: [facility] Work Phone: 02-22-2022 10:52-0400 Body weight 56.[address] Daron Benton Work Phone: [facility] Work Phone: 02-22-2022 10:52-0400 Diastolic blood pressure 94 mm[Hg] Dr. Daron Benton Work Phone: [facility] Work Phone: 02-22-2022 10:52-0400 Heart rate 56 /min Dr. Daron Benton Work Phone: [facility] Work Phone: 02-22-2022 10:52-0400 Respiratory rate 18 /min Dr. Daron Benton Work Phone: [facility] Work Phone: 02-22-2022 10:52-0400 SaO2% (BldA) [Mass fraction] 96 % Dr. Daron Benton Work Phone: [facility] Work Phone: 02-22-2022 10:52-0400 Systolic blood pressure 169 mm[Hg] Dr. Daron Benton Work Phone: [facility] Work Phone: 02-20-2022 19:23-0400 Diastolic blood pressure 89 mm[Hg] Dr. Daron Benton Work Phone: [facility] Work Phone: 02-20-2022 19:23-0400 Heart rate 67 /min Dr. Daron Benton Work Phone: [facility] Work Phone: 02-20-2022 19:23-0400 Respiratory rate 15 /min Dr. Daron Benton Work Phone: [facility] Work Phone: 02-20-2022 19:23-0400 SaO2% (BldA) [Mass fraction] 97 % Dr. Daron Benton Work Phone: [facility] Work Phone: 02-20-2022 19:23-0400 Systolic blood pressure 172 mm[Hg] Dr. Daron Benton Work Phone: [facility] Work Phone: 02-20-2022 16:38-0400 Body mass index (BMI) [Ratio] 20.6 kg/m2 Dr. Daron Benton Work Phone: [facility] Work Phone: 02-20-2022 16:38-0400 Body temperature 96.5 [degF] Dr. Daron Benton Work Phone: [facility] Work Phone: 02-20-2022 16:38-0400 Body weight 58.[address] Daron Benton Work Phone: [facility] Work Phone: 02-18-2022 07:24-0400 Diastolic blood pressure 84 mm[Hg] Dr. Daron Benton Work Phone: [facility] Work Phone: 02-18-2022 07:24-0400 Heart rate 82 /min Dr. Daron Benton Work Phone: [facility] Work Phone: 02-18-2022 07:24-0400 Respiratory rate 16 /min Dr. Daron Benton Work Phone: [facility] Work Phone: 02-18-2022 07:24-0400 SaO2% (BldA) [Mass fraction] 98 % Dr. Daron Benton Work Phone: [facility] Work Phone: 02-18-2022 07:24-0400 Systolic blood pressure 145 mm[Hg] Dr. Daron Benton Work Phone: [facility] Work Phone: 02-18-2022 04:09-0400 Body height 167.[address] Daron Benton Work Phone: [facility] Work Phone: 02-18-2022 04:09-0400 Body mass index (BMI) [Ratio] 21.2 kg/m2 Dr. Daron Benton Work Phone: [facility] Work Phone: 02-18-2022 04:09-0400 Body temperature 97 [degF] Dr. Daron Benton Work Phone: [facility] Work Phone: 02-18-2022 04:09-0400 Body weight 59.[address] Daron Benton Work Phone: [facility] Work Phone: 02-17-2022 22:28-0400 Diastolic blood pressure 87 mm[Hg] Dr. Daron Benton Work Phone: [facility] Work Phone: 02-17-2022 22:28-0400 Heart rate 82 /min Dr. Daron Benton Work Phone: [facility] Work Phone: 02-17-2022 22:28-0400 Respiratory rate 15 /min Dr. Daron Benton Work Phone: [facility] Work Phone: 02-17-2022 22:28-0400 SaO2% (BldA) [Mass fraction] 98 % Dr. Daron Benton Work Phone: [facility] Work Phone: 02-17-2022 22:28-0400 Systolic blood pressure 145 mm[Hg] Dr. Daron Benton Work Phone: [facility] Work Phone: 02-17-2022 21:33-0400 Body height 167.[address] Daron Benton Work Phone: [facility] Work Phone: 02-17-2022 21:33-0400 Body mass index (BMI) [Ratio] 20.6 kg/m2 Dr. Daron Benton Work Phone: [facility] Work Phone: 02-17-2022 21:33-0400 Body temperature 98.1 [degF] Dr. Daron Benton Work Phone: [facility] Work Phone: 02-17-2022 21:33-0400 Body weight 58.[address] Daron Benton Work Phone: [facility] Work Phone: 02-14-2022 23:00-0400 Diastolic blood pressure 78 mm[Hg] Dr. Daron Benton Work Phone: [facility] Work Phone: 02-14-2022 23:00-0400 Heart rate 78 /min Dr. Daron Benton Work Phone: [facility] Work Phone: 02-14-2022 23:00-0400 Respiratory rate 16 /min Dr. Daron Benton Work Phone: [facility] Work Phone: 02-14-2022 23:00-0400 SaO2% (BldA) [Mass fraction] 97 % Dr. Daron Benton Work Phone: [facility] Work Phone: 02-14-2022 23:00-0400 Systolic blood pressure 159 mm[Hg] Dr. Daron Benton Work Phone: [facility] Work Phone: 02-14-2022 15:46-0400 Body mass index (BMI) [Ratio] 22 kg/m2 Dr. Daron Benton Work Phone: [facility] Work Phone: 02-14-2022 15:46-0400 Body temperature 98.2 [degF] Dr. Daron Benton Work Phone: [facility] Work Phone: 02-14-2022 15:46-0400 Body weight 61.[address] Daron Benton Work Phone: [facility] Work Phone: 02-08-2022 12:58-0400 Body mass index (BMI) [Ratio] 20.5 kg/m2 Dr. Daron Benton Work Phone: [facility] Work Phone: 02-08-2022 12:58-0400 Body weight 57.[address] Daron Benton Work Phone: [facility] Work Phone: 02-08-2022 12:58-0400 Diastolic blood pressure 76 mm[Hg] Dr. Daron Benton Work Phone: [facility] Work Phone: 02-08-2022 12:58-0400 Heart rate 51 /min Dr. Draon Benton Work Phone: [facility] Work Phone: 02-08-2022 12:58-0400 Respiratory rate 18 /min Dr. Daron Benton Work Phone: [facility] Work Phone: 02-08-2022 12:58-0400 SaO2% (BldA) [Mass fraction] 99 % Dr. Daron Benton Work Phone: [facility] Work Phone: 02-08-2022 12:58-0400 Systolic blood pressure 136 mm[Hg] Dr. Daron Benton Work Phone: [facility] Work Phone: 02-08-2022 12:58-0400 Body mass index (BMI) [Ratio] 20.5 kg/m2 Dr. Daron Benton Work Phone: [facility] Work Phone: 02-08-2022 12:58-0400 Body weight 57.[address] Daron Benton Work Phone: [facility] Work Phone: 02-08-2022 12:58-0400 Diastolic blood pressure 76 mm[Hg] Dr. Daron Benton Work Phone: [facility] Work Phone: 02-08-2022 12:58-0400 Heart rate 51 /min Dr. Daron Benton Work Phone: [facility] Work Phone: 02-08-2022 12:58-0400 Respiratory rate 18 /min Dr. Daron Benton Work Phone: [facility] Work Phone: 02-08-2022 12:58-0400 SaO2% (BldA) [Mass fraction] 99 % Dr. Daron Benton Work Phone: [facility] Work Phone: 02-08-2022 12:58-0400 Systolic blood pressure 136 mm[Hg] Dr. Daron Benton Work Phone: [facility] Work Phone: 01-23-2022 10:55-0500 Body mass index (BMI) [Ratio] 21 kg/m2 Dr. Daron Benton Work Phone: [facility] Work Phone: 01-23-2022 10:55-0500 Body temperature 97.3 [degF] Dr. Daron Benton Work Phone: [facility] Work Phone: 01-23-2022 10:55-0500 Body weight 59.[address] Daron Benton Work Phone: [facility] Work Phone: 01-23-2022 10:55-0500 Diastolic blood pressure 105 mm[Hg] Dr. Daron Benton Work Phone: [facility] Work Phone: 01-23-2022 10:55-0500 Heart rate 54 /min Dr. Daron Benton Work Phone: [facility] Work Phone: 01-23-2022 10:55-0500 Respiratory rate 16 /min Dr. Daron Benton Work Phone: [facility] Work Phone: 01-23-2022 10:55-0500 SaO2% (BldA) [Mass fraction] 96 % Dr. Daron Benton Work Phone: [facility] Work Phone: 01-23-2022 10:55-0500 Systolic blood pressure 194 mm[Hg] Dr. Daron Benton Work Phone: [facility] Work Phone: 01-23-2022 09:55-0500 Body mass index (BMI) [Ratio] 21 kg/m2 Dr. Daron Benton Work Phone: [facility] Work Phone: 01-23-2022 09:55-0500 Body temperature 97.3 [degF] Dr. Daron Benton Work Phone: [facility] Work Phone: 01-23-2022 09:55-0500 Body weight 59.[address] Daron Benton Work Phone: [facility] Work Phone: 01-23-2022 09:55-0500 Diastolic blood pressure 105 mm[Hg] Dr. Daron Benton Work Phone: [facility] Work Phone: 01-23-2022 09:55-0500 Heart rate 54 /min Dr. Daron Benton Work Phone: [facility] Work Phone: 01-23-2022 09:55-0500 Respiratory rate 16 /min Dr. Daron Benton Work Phone: [facility] Work Phone: 01-23-2022 09:55-0500 SaO2% (BldA) [Mass fraction] 96 % Dr. Daron Benton Work Phone: [facility] Work Phone: 01-23-2022 09:55-0500 Systolic blood pressure 194 mm[Hg] Dr. Daron Benton Work Phone: [facility] Work Phone: 01-18-2022 07:11-0500 Body weight 56.[address] Daron Benton Work Phone: [facility] Work Phone: 01-18-2022 06:11-0500 Body weight 56.[address] Daron Benton Work Phone: [facility] Work Phone: 01-17-2022 08:23-0500 Body mass index (BMI) [Ratio] 20.7 kg/m2 Dr. Daron Benton Work Phone: [facility] Work Phone: 01-17-2022 07:23-0500 Body mass index (BMI) [Ratio] 20.7 kg/m2 Dr. Daron Benton Work Phone: [facility] Work Phone: Encounters Encounter Date Encounter Type Care Provider Facility Start: 05-20-2025 ambulatory Lizz Lynn Facilit y:[facility] Start: 05-15-2025 End: 05-15-2025 Dr. Tye Barnett MD -[facility] Work Phone: Start: 05-15-2025 End: 05-15-2025 ambulatory Daron Benton Facility:[facility] Start: 05-06-2025 End: 05-06-2025 Iona HAMMOND -[facility] Work Phone: Start: 05-06-2025 End: 05-06-[address] Daron Benton MD Work Phone: [facility] Work Phone: Start: 05-05-2025 End: 05-06-2025 Telephone encounter Lizz Lynn SALES [employer]ISE ASSOCIATE - [employer]ISA[employer]SE DIRECTOR Work Phone: [facility] Comment on above: Prior Authorization Start: 04-28-2025 ambulatory Negar Elizondoi ty:[facility] Start: 04-24-2025 End: 04-24-2025 Telephone encounter Lizz Lynn SALES MERCH[employer]ISE ASSOCIATE - DISASTER RESPONSE DIRECTOR Work Phone: [facility] Comment on above: Med Refill (Baclofen ) Start: 04-22-2025 Kevin Gonzalez -[facility] Start: 04-22-2025 Dr. Roman Mckeon MD -[facility] Work Phone: Start: 04-21-2025 Kevin Friend DO -[facility] Start: 04-21-2025 Dr. Sommer archibald MD -[facility] Work Phone: Start: 04-20-2025 Kevin Gonzalez DO -[facility] Start: 04-20-2025 Dr. Roman Mckeon MD -[facility] Work Phone: Start: 04-19-2025 Dr. Roman Mckeon MD -[facility] Work Phone: Start: 04-18-2025 ambulatory Sachin Murillo Fac ility:[facility] Start: 04-18-2025 End: 04-22-2025 Dr. Roman Mckeon MD -[facility] Work Phone: Start: 04-18-2025 End: 04-22-2025 Evaluation and management of inpatient Dr. Sachin Murillo MD -[facility] Work Phone: Start: 04-17-2025 End: 04-18-2025 Dr. Daron Benton MD Work Phone: -Emergency Department Work Phone: Start: 04-17-2025 End: 04-18-2025 Emergency department patient visit Dr. Daron Benton MD Work Phone: -Emergency Department Work Phone: Start: 04-11-2025 End: 04-11-2025 Dr. Ramírez Onofre MD -Emergency Departmen t Work Phone: Start: 04-11-2025 End: 04-11-2025 Emergency department patient visit Dr. Ramírez Onofre MD -Emergency Department Work Phone: Start: 04-08-2025 End: 04-08-2025 Office outpatient visit 15 minutes Lizz Lynn SALES [employer]ISE ASSOCIATE - [employer]ISASTER RESPONSE DIRECTOR Work Phone: [facility] Comment on above: Multiple sclerosis ( HCC) (Primary Dx); Dysphasia Start: 04-08-2025 End: 04-08-2025 ambulatory LIZZ LYNN [facility] Start: 04-02-2025 End: 04-02-2025 Dr. Daron Benton MD Work Phone: -Emergency Department Work Phone: Start: 04-02-2025 End: 04-02-2025 Emergency department patient visit Dr. Daron Benton MD Work Phone: [facility] Work Phone: Start: 03-19-2025 ambulatory Daron Repton Facility: [facility] Start: 03-19-2025 Non-patient / Non-visit Dr. Ch[place] FOX -[facility] Start: 03-19-2025 End: 03-19-[address] Orlando Jacob MD -Cardiovascular Services Work Phone: Start: 03-19-2025 End: 03-19-2025 Dr. Orlando Jacob MD -[facility] Start: 03-19-2025 End: 03-19-2025 ambulatory Betsey PEÑA Facility:[facility] Start: 03-09-2025 End: 03-09-2025 Telephone encounter Lizz Lynn APRN - DISASTER RESPONSE DIRECTOR Work Phone: [facility] Clinical Communication Comment on above: Orders (MRI order) Start: 03-04-2025 End: 03-04-2025 Office outpatient visit 15 minutes Lizz Lynn APRN - DISASTER RESPONSE DIRECTOR Work Phone: [facility] Comment on above: Multiple sclerosis ( HCC) (Primary Dx); Mild cognitive impairment; Fatigue, unspecified type; Deficiency of multiple nutrient elements Start: 03-04-2025 End: 03-04-20[facility] Start: 02-20-2025 End: 02-20-2025 Patient encounter procedure Betsey PEÑA -[facility] Work Phone: Start: 02-20-2025 End: 02-20-2025 Betsey PEÑA -[facility] Work Phone: Start: 02-20-2025 End: 02-20-2025 ambulatory Daron Benton Facility:[facility] Start: 01-15-2025 End: 01-15-[address] Daron Benton MD -[facility] Work Phone: Start: 01-15-2025 End: 01-15-2025 Dr. Daron Benton MD -[facility] Work Phone: Start: 01-15-2025 End: 01-15-2025 ambulatory Daron Benton Facility:[facility] Start: 01-13-2025 Non-patient / Non-[facility] Work Phone: Start: 01-13-2025 Dr. Dex claros [facility] Work Phone: Start: 01-12-2025 Non-patient / Non-visit Dr. Damian silva [facility] Inpatient Physicians Work Phone: Start: 01-12-2025 Dr. Dex claros [facility] In[facility] Work Phone: Start: 01-12-2025 Non-patient / Non-visit Dr. Rafaela Smiley MD -[facility] Start: 01-12-2025 Dr. Bhavik blevins MD [facility] Start: 01-12-2025 [facility] Start: 01-12-2025 Non-patient / Non-visit Dr. Kacie Weiner MD [facility] Start: 01-12-2025 Dr. Kofi Weiner MD [facility] Start: 01-11-2025 Non-patient / Non-visit Dr. Kacie Watson MD [facility] Work Phone: Start: 01-11-2025 Dr. Neha simpson MD [facility] Work Phone: Start: 01-11-2025 Non-patient / Non-visit Dr. Carlos A olea MD -[facility] Start: 01-11-2025 Dr. Carlos A Parikh MD [facility] Start: 01-10-2025 ambulatory Benjy Mark Facility: [facility] Start: 01-10-2025 End: 01-13-2025 Evaluation and management of inpatient Dr. Dex Worrell DO -Progressive Care Unit Work Phone: Start: 01-10-2025 End: 01-13-2025 Dr. Dex Worrell DO -Progressive Care Unit Work Phone: Start: 12-24-2024 End: 12-24-2024 Patient encounter procedure BEE RANCHER Negar Mckeon [facility] Pulmonary Medicine Work Phone: Start: 12-24-2024 End: 12-24-2024 BEE RANCHER Negar Mckeon [facility] Pulmona ry Medicine Work Phone: Start: 12-24-2024 End: 12-24-2024 ambulatory Negar Mckeon Facility:[facility] Start: 12-19-2024 End: 12-19-2024 Patient encounter procedure Betsey PEÑA -[facility] Work Phone: Start: 12-19-2024 End: 12-19-2024 Betsey PEÑA -[facility] Work Phone: Start: 12-19-2024 End: 12-19-2024 ambulatory Betsey PEÑA Facility:[facility] Start: 12-17-2024 End: 12-17-2024 Dr. Jeffy Willoughby [facility] Work Phone: Start: 12-17-2024 End: 12-17-2024 Emergency department patient visit Daron Benton Facility:[facility] Start: 12-11-2024 Dr. Neha simpson MD [facility] Work Phone: Start: 12-10-2024 Dr. Neha simpson MD -[facility] Work Phone: Start: 12-10-2024 Dr. Kofi Weiner MD -[facility] Start: 12-09-2024 End: 12-11-2024 ambulatory Trina Tyler Facility:[facility] Start: 12-09-2024 End: 12-11-2024 Dr. Neha Watson MD -Progressive Care Unit Work Phone: Start: 11-28-2024 End: 11-28-2024 Emergency department patient visit Daron Benton Facility:[facility] Start: 11-24-2024 End: 11-24-2024 ambulatory Daron Benton Facility:[facility] Start: 11-20-2024 End: 11-20-2024 Refjusta Lynn SALES MERCHANDISE ASSOCIATE - DISASTER RESPONSE DIRECTOR Work Phone: [facility] Comment on above: Multiple sclerosis ( HCC) Start: 10-08-2024 End: 10-08-2024 ambulatory Daron Benton Facility:[facility] Start: 10-06-2024 ambulatory Daron Benton [facility] Start: 10-03-2024 End: 10-03-2024 ambulatory Daron Benton Facility:[facility] Start: 10-01-2024 End: 10-01-2024 ambulatory aDron Benton Facility:[facility] Start: 09-14-2024 End: 09-15-2024 Refill Mamta Wood SALES MERCHANDISE ASSOCIATE - DISASTER RESPONSE DIRECTOR Work Phone: [facility] Comment on above: Multiple sclerosis ( HCC) Start: 08-27-2024 End: 08-27-2024 ambulatory Daron Benton Facility:[facility] Start: 08-25-2024 End: 08-25-2024 ambulatory Daron Benton Facility:[facility] Start: 08-21-2024 End: 08-21-2024 ambulatory Daron Benton Facility:[facility] Start: 08-14-2024 End: 08-14-2024 ambulatory Daron Benton Facility:[facility] Start: 06-19-2024 End: 06-19-2024 ambulatory Kevin Gonzalez Facility:[facility] Start: 06-19-2024 End: 06-19-2024 ambulatory Kevin Gonzalez Facility:[facility] Start: 05-21-2024 End: 05-21-2024 ambulatory Daron Benton Facility:[facility] Start: 02-29-2024 End: 02-29-[address] Daron Benton Work Phone: [facility] Work Phone: Start: 02-29-2024 End: 02-29-2024 Dr. Daron Benton Work Phone: [facility] Start: 02-25-2024 Dr. Daron Benton Work Phone: [facility] Work Phone: Start: 02-25-2024 Dr. Daron Benton Work Phone: [facility] Start: 02-24-2024 Dr. Daron Benton Work Phone: [facility] Work Phone: Start: 02-24-2024 End: 02-24-2024 Dr. Daron Benton Work Phone: [facility] Work Phone: Start: 02-23-2024 End: 02-23-2024 Dr. Daron Benton Work Phone: [facility] Work Phone: Start: 02-23-2024 Dr. Daron Benton Work Phone: [facility] Start: 02-23-2024 Dr. Daron Benton Work Phone: [facility] Work Phone: Start: 02-22-2024 Dr. Daron Benton Work Phone: [facility] Start: 02-22-2024 Dr. Daron Benton Work Phone: [facility] Work Phone: Start: 02-21-2024 Dr. Daron Benton Work Phone: [facility] Start: 02-21-2024 Dr. Daron Benton Work Phone: [facility] Work Phone: Start: 02-20-2024 Dr. Daron Benton Work Phone: [facility] Work Phone: Start: 02-19-2024 Dr. Daron Benton Work Phone: [facility] Start: 02-19-2024 End: 02-25-2024 Evaluation and management of inpatient Dr. Daron Benton Work Phone: [facility] Work Phone: Start: 02-19-2024 End: 02-25-2024 Dr. Daron Benton Work Phone: [facility] Work Phone: Start: 02-11-2024 Ankit Main MD Work Phone: [facility] Neuroscience Comment on above: Multiple sclerosis ( HCC) Start: 01-18-2024 End: 01-18-2024 Emergency department patient visit Dr. Daron Benton Work Phone: [facility] Work Phone: Start: 01-18-2024 End: 01-18-2024 Dr. Daron Benton Work Phone: [facility]-Emergency Department Work Phone: Start: 01-18-2024 End: 01-18-[address] Daron Benton Work Phone: [facility] Work Phone: Start: 01-18-2024 End: 01-18-2024 Dr. Daron Benton Work Phone: [facility] Start: 01-11-2024 End: 01-11-2024 Emergency department patient visit Dr. Daron Betnon Work Phone: [facility] Work Phone: Start: 01-11-2024 End: 01-11-2024 Dr. Daron Benton Work Phone: [facility]-Emergency Department Work Phone: Start: 01-08-2024 Dr. aDron Benton Work Phone: [facility]-Physical Therapy Work Phone: Start: 12-21-2023 End: 12-21-2023 Dr. Daron Benton Work Phone: [facility]-Laboratory Work Phone: Start: 12-21-2023 End: 12-21-2023 Dr. Daron Benton Work Phone: [facility] Work Phone: Start: 12-14-2023 End: 12-14-2023 Office outpatient visit 40 minutes Lizz Lynn APRN - DISASTER RESPONSE DIRECTOR Work Phone: [facility] Comment on above: Multiple sclerosis ( HCC) (Primary Dx); Dizziness; Imbalance; Vision disturbance Start: 12-07-2023 Dr. Daron Benton Work Phone: [facility] Work Phone: Start: 12-06-2023 Dr. Daron Benton Work Phone: [facility] Work Phone: Start: 12-05-2023 Dr. Daron Benton Work Phone: [facility] Work Phone: Start: 12-05-2023 Dr. Daron Benton Work Phone: [facility] Start: 12-04-2023 Dr. Daron Benton Work Phone: [facility] Work Phone: Start: 12-04-2023 Dr. Daron Benton Work Phone: [facility] Start: 12-03-2023 Dr. Daron Benton Work Phone: [facility] Work Phone: Start: 12-02-2023 End: 12-07-2023 Evaluation and management of inpatient Dr. Daron Benton Work Phone: [facility] Work Phone: Start: 12-02-2023 End: 12-07-2023 Dr. Daron Benton Work Phone: [facility] Work Phone: Start: 11-27-2023 End: 11-27-2023 Emergency department patient visit Dr. Daron Benton Work Phone: [facility]-Emergency Department Work Phone: Start: 11-27-2023 End: 11-27-2023 Dr. Daron Benton Work Phone: [facility]-Emergency Department Work Phone: Start: 11-26-2023 End: 11-26-2023 Emergency department patient visit Dr. Daron Benton Work Phone: [facility]-Emergency Department Work Phone: Start: 11-26-2023 End: 11-26-2023 Dr. Daron Benton Work Phone: [facility]-Emergency Department Work Phone: Start: 11-21-2023 Non-patient / Non-visit Dr. Alex Benton Work Phone: [facility] Work Phone: Start: 11-21-2023 Dr. Daron Benton Work Phone: [facility] Work Phone: Start: 11-20-2023 Non-patient / Non-visit Dr. Alex Benton Work Phone: [facility] Work Phone: Start: 11-20-2023 Dr. Daron Benton Work Phone: [facility] Work Phone: Start: 11-19-2023 Non-patient / Non-visit Dr. Alex Benton Work Phone: [facility] Start: 11-19-2023 Dr. Daron Benton Work Phone: [facility] Start: 11-18-2023 End: 11-21-2023 Evaluation and management of inpatient Dr. Daron Benton Work Phone: [facility] Work Phone: Start: 11-18-2023 End: 11-21-2023 Dr. Daron Benton Work Phone: [facility] Work Phone: Start: 11-16-2023 Non-patient / Non-visit Dr. Alex Benton Work Phone: [facility] Work Phone: Start: 11-16-2023 Dr. Daron Benton Work Phone: [facility] Work Phone: Start: 11-15-2023 End: 11-16-2023 Evaluation and management of inpatient Dr. Daron Benton Work Phone: [facility] Work Phone: Start: 11-15-2023 End: 11-16-2023 Dr. Daron Benton Work Phone: [facility] Work Phone: Start: 11-02-2023 End: 11-02-[address] Daron Benton Work Phone: [facility] Work Phone: Start: 11-02-2023 End: 11-02-2023 Dr. Daron Benton Work Phone: [facility] Work Phone: Start: 10-26-2023 End: 10-26-2023 ambulatory TYE BARNETT MD Facility:A Start: 10-22-2023 End: 10-22-[address] Daron Benton Work Phone: [facility] Work Phone: Start: 10-22-2023 End: 10-22-[address] [facility] Benton [facility] Work Phone: Start: 10-22-2023 End: 10-22-2023 Dr. Daron Benton [facility] Work Phone: Start: 10-22-2023 End: 10-22-[address] Daron Benton Work Phone: [facility] Work Phone: Start: 10-22-2023 End: 10-22-2023 Dr. Daron Benton Work Phone: [facility] Work Phone: Start: 10-05-2023 End: 10-05-2023 Office outpatient visit 40 minutes Kristopher Main MD Work Phone: [facility] Comment on above: Multiple sclerosis ( HCC) (Primary Dx); Cerebrovascular disease, unspecified; Primary hypertension Start: 10-05-2023 Telephone encounter Kristopher baez MD Work Phone: [facility] Comment on above: Orders Start: 10-05-2023 End: 10-05-2023 Emergency department patient visit Dr. Daron Benton Work Phone: [facility]-Emergency Department Work Phone: Start: 10-05-2023 End: 10-05-2023 Dr. Daron Benton Work Phone: [facility]-Emergency Department Work Phone: Start: 09-04-2023 End: 09-04-[address] Daron Benton Work Phone: [facility] Work Phone: Start: 09-04-2023 End: 09-04-2023 Dr. Daron Benton Work Phone: [facility] Work Phone: Start: 09-04-2023 End: 09-04-[address] Daron Benton Work Phone: [facility] Work Phone: Start: 09-04-2023 End: 09-04-[address] Daron Benton [facility] Work Phone: Start: 09-04-2023 End: 09-04-2023 Dr. Daron Benton [facility] Work [facility]: Start: 08-21-2023 End: 08-21-[address] Daron Benton Work Phone: [facility] Start: 08-21-2023 End: 08-21-2023 Dr. Daron Benton Work Phone: [facility] Start: 07-26-2023 End: 07-26-[address] Daron Benton Work Phone: [facility] Work Phone: Start: 07-26-2023 End: 07-26-[address] Daron Benton [facility] Work Phone: Start: 06-15-2023 Refill Kristopher Main MD Work Phone: [facility] Comment on above: Multiple sclerosis ( HCC) Start: 06-04-2023 Telephone encounter Kristopher baez MD Work Phone: [facility] Comment on above: Med Refill Start: 05-24-2023 End: 05-24-[address] Daron Benton Work Phone: [facility] Work Phone: Start: 05-10-2023 Refill Kristopher Main MD Work Phone: [facility] Start: 04-26-2023 End: 04-26-[address] Daron Benton Work Phone: [facility] Work Phone: Start: 04-26-2023 End: 04-26-[address] Daron Benton Work Phone: [facility] Start: 04-25-2023 End: 04-25-[address] Daron Benton Work Phone: [facility] Start: 04-14-2023 End: 04-14-[address] Daron Benton Work Phone: [facility] Work Phone: Start: 04-14-2023 End: 04-14-[address] Daron Benton Work Phone: [facility] Start: 04-10-2023 End: 04-10-[address] Daron Benton Work Phone: [facility] Work Phone: Start: 04-10-2023 End: 04-10-[address] Daron Benton Work Phone: [facility]-Nuclear Medicine, [facility] Start: 04-08-2023 End: 04-08-2023 Emergency department patient visit Dr. Daron Benton Work Phone: [facility]-Emergency Department Start: 04-02-2023 End: 04-02-[address] Daron Benton Work Phone: [facility] Start: 03-31-2023 End: 03-31-2023 Emergency department patient visit Dr. Daron Benton Work Phone: [facility]-Emergency Department Start: 03-20-2023 End: 03-20-[address] Daron Benton Work Phone: [facility] Work Phone: Start: 03-20-2023 End: 03-20-[address] Daron Benton Work Phone: [facility] Start: 03-16-2023 End: 03-16-2023 Emergency department patient visit Dr. Daron Benton Work Phone: [facility]-Emergency Department Start: 02-01-2023 End: 02-01-[address] Daron Benton Work Phone: [facility] Work Phone: Start: 02-01-2023 End: 02-01-[address] Daron Benton Work Phone: [facility]-Outpatient Bone Densitometry Start: 01-22-2023 End: 01-22-[address] Daron Benton Work Phone: [facility] Start: 12-27-2022 End: 12-27-[address] Daron Benton Work Phone: [facility] Start: 12-20-2022 End: 12-20-[address] Daron Benton Work Phone: [facility] Start: 12-13-2022 End: 12-13-[address] Daron Benton Work Phone: [facility] Start: 12-04-2022 End: 12-04-[address] Daron Benton Work Phone: [facility] Start: 11-24-2022 End: 11-24-2022 Emergency department patient visit Dr. Daron Benton Work Phone: [facility]-Emergency Department Start: 11-21-2022 Non-patient / Non-visit Dr. Alex Benton Work Phone: [facility] Start: 11-21-2022 End: 11-21-[address] Daron Benton Work Phone: [facility] Work Phone: Start: 11-21-2022 End: 11-21-[address] Daron Benton [facility] Start: 11-09-2022 End: 11-09-2022 SAME DAY STAY TYE BARNETT MD [facility] Start: 10-26-2022 End: 10-26-[address] Daron Benton Work Phone: [facility] Start: 10-20-2022 End: 10-20-[address] Daron Benton Work Phone: [facility] Start: 10-09-2022 End: 10-09-[address] Daron Benton Work Phone: [facility] Start: 09-26-2022 End: 09-26-2022 ambulatory [facility] Work Phone: Start: 09-26-2022 End: 09-26-2022 [facility] Start: 09-03-2022 Transcribe Orders Kristopher olson MD Work Phone: [facility] [place] Comment on above: Other specified symp toms and signs involving the circulatory and respiratory systems (Primary Dx); Cerebrovascular disease, unspecified Start: 08-23-2022 End: 08-23-[address] Daron Benton Work Phone: [facility] Work Phone: Start: 08-23-2022 End: 08-23-[address] Daron Benton Work Phone: [facility]-Cardiovascular Services Start: 05-16-2022 End: 05-16-[address] Daron Benton Work Phone: [facility] Start: 05-02-2022 End: 05-02-[address] Daron Benton Work Phone: [facility] Start: 02-22-2022 End: 02-22-[address] Daron Benton Work Phone: [facility] Start: 02-20-2022 End: 02-20-2022 Emergency department patient visit Dr. Daron Benton Work Phone: [facility]-Emergency Department Start: 02-18-2022 End: 02-18-2022 Emergency department patient visit Dr. Daron Benton Work Phone: [facility]-Emergency Department Start: 02-17-2022 End: 02-17-2022 Emergency department patient visit Dr. Daron Benton Work Phone: [facility]-Emergency Department Start: 02-14-2022 End: 02-14-2022 Emergency department patient visit Dr. Daron Benton Work Phone: [facility]-Emergency Department Start: 02-08-2022 End: 02-08-[address] Daron Benton Work Phone: [facility] Start: 01-23-2022 End: 01-23-2022 Emergency department patient visit Dr. Daron Benton Work Phone: [facility]-Emergency Department Start: 01-18-2022 End: 01-18-2022 Admission to same day surgery center Dr. Daron Benton Work Phone: [facility]-Automation Clerk/Special Procedures Start: 11-17-[address] Daron Benton Work Phone: [facility]-Cat Scan, [facility] Start: 10-21-2021 End: 10-21-[address] Daron Benton Work Phone: [facility] Start: 08-11-[address] Daron Benton Work Phone: [facility] Start: 08-11-[address] Daron lin MD Work Phone: [facility] Start: 11-25-2020 End: 11-25-2020 Subsequent hospital visit by physician Xr [facility] Work Phone: Radiology Comment on above: Cough [R05] Start: 12-21-2017 End: 12-21-2017 Ambulatory YOGESH ONOFRE [facility] Procedures Date Procedure Procedure Detail Performing Clinician Start: 05-15-2025 Blood count smear mcrscp w/mnl difrntl wbc count Dr. Daron Benton MD Work Phone: Start: 05-15-[address] Daron Benton MD Work Phone: Start: 05-15-2025 Mean corpuscular hemoglobin concentration determination Dr. Daron Benton MD Work Phone: Start: 05-15-2025 Nucleated red blood cell count procedure Dr. Daron Benton MD Work Phone: Start: 05-15-2025 Platelet mean volume determination Dr. Marcelle Benton MD Work Phone: Start: 05-15-[address] Marcelle Benton MD Work Phone: Start: 05-15-2025 Total iron binding capacity measurement Dr. Daron Benton MD Work Phone: Start: 05-15-2025 CT angiography of neck vessels Dr. Daron Benton MD Work Phone: Start: 04-22-[address] Daron Benton MD Work Phone: Start: 04-22-[address] Daron Benton MD Work Phone: Start: 04-22-2025 Mean corpuscular hemoglobin concentration determination Dr. Daron Benton MD Work Phone: Start: 04-22-2025 Platelet mean volume determination Dr. Marcelel Benton MD Work Phone: Start: 04-21-[address] Daron swanson MD Work Phone: Start: 04-21-2025 Measurement of occult blood in stool specimen using immunoassay Dr. Daron Benton MD Work Phone: Start: 04-21-2025 CT of head without contrast Dr. Daron saleh MD Work Phone: Start: 04-20-[address] Daron swanson MD Work Phone: Start: 04-20-2025 Serum inorganic phosphate measurement Dr. Daron Benton MD Work Phone: Start: 04-19-2025 Blood count smear mcrscp w/mnl difrntl wbc count Dr. Daron Benton MD Work Phone: Start: 04-19-2025 Nucleated red blood cell count procedure Dr. Daron Benton MD Work Phone: Start: 04-18-[address] Daron Benton MD Work Phone: Start: 04-18-2025 Total iron binding capacity measurement Dr. Daron Benton MD Work Phone: Start: 04-18-[address] Daron Benton MD Work Phone: Start: 04-18-[address] Marcelle Benton MD Work Phone: Start: 04-17-2025 Plain X-ray abdomen Dr. Daron Benton MD Work Phone: Start: 04-11-2025 CT cervical spine without contrast Dr. Marcelle Benton MD Work Phone: Start: 04-11-[address] Daron Benton MD Work Phone: Start: 04-11-2025 CT of head without contrast Dr. Daron saleh MD Work Phone: Start: 04-02-2025 Blood count smear mcrscp w/mnl difrntl wbc count Dr. Daron Benton MD Work Phone: Start: 04-02-[address] Daron Benton MD Work Phone: Start: 04-02-2025 Mean corpuscular hemoglobin concentration determination Dr. Daron Benton MD Work Phone: Start: 04-02-2025 Nucleated red blood cell count procedure Dr. Daron Benton MD Work Phone: Start: 04-02-2025 Platelet mean volume determination Dr. Marcelle Benton MD Work Phone: Start: 04-02-[address] Marcelle Benton MD Work Phone: Start: 04-02-2025 Computed tomography of abdomen and pelvis with intravenous contrast Dr. Daron Benton MD Work Phone: Start: 01-15-[address] Daron Benton MD Work Phone: Start: 01-11-[address] Daron Benton MD Work Phone: Start: 01-11-2025 Sars-cov-2 Dr. Daron Benton MD Work Phone: Start: 01-11-2025 Albumin/Globulin ratio Dr. Daron Benton MD Work Phone: Start: 01-11-[address] Daron Benton MD Work Phone: Start: 01-11-2025 Blood count smear mcrscp w/mnl difrntl wbc count Dr. Daron Benton MD Work Phone: Start: 01-11-2025 BUN/Creatinine ratio Dr. Daron Benton MD Work Phone: Start: 01-11-[address] Daron Benton MD Work Phone: Start: 01-11-2025 Mean corpuscular hemoglobin concentration determination Dr. Daron Benton MD Work Phone: Start: 01-11-2025 Measurement of renal function Dr. Daron sandoval MD Work Phone: Comment on above: GFR Calc Start: 01-11-2025 Nucleated red blood cell count procedure Dr. Daron Benton MD Work Phone: Start: 01-11-2025 Platelet mean volume determination Dr. Marcelle Benton MD Work Phone: Start: 01-11-2025 Calculation of international normalized ratio Dr. Daron Benton MD Work Phone: Start: 01-10-2025 Plain chest X-ray Dr. Daron Benton MD Work Phone: Start: 01-10-2025 CT of head without contrast Dr. Daron saleh MD Work Phone: Start: 12-17-2024 X-ray of chest, PA and lateral views Dr. Daron Benton MD Work Phone: Start: 12-17-[address] Daron Benton MD Work Phone: Start: 12-17-[address] Daron Benton MD Work Phone: Start: 12-17-2024 BUN/Creatinine ratio Dr. Daron Benton MD Work Phone: Start: 12-17-[address] Daron Benton MD Work Phone: Start: 12-17-2024 Mean corpuscular hemoglobin concentration determination Dr. Daron Benton MD Work Phone: Start: 12-17-2024 Measurement of renal function Dr. Daron sandoval MD Work Phone: Start: 12-17-2024 Platelet mean volume determination Dr. Marcelle Benton MD Work Phone: Start: 12-11-2024 Measurement of occult blood in stool specimen using immunoassay Dr. Daron Benton MD Work Phone: Start: 12-11-2024 Albumin/Globulin ratio Dr. Daron Benton MD Work Phone: Start: 12-11-[address] Daron Benton MD Work Phone: Start: 12-11-2024 BUN/Creatinine ratio Dr. Daron Benton MD Work Phone: Start: 12-11-[address] Daron Benton MD Work Phone: Start: 12-11-2024 Mean corpuscular hemoglobin concentration determination Dr. Daron Benton MD Work Phone: Start: 12-11-2024 Measurement of renal function Dr. Daron sandoval MD Work Phone: Start: 12-11-2024 Platelet mean volume determination Dr. Marcelle Benton MD Work Phone: Start: 12-10-2024 Blood count smear mcrscp w/mnl difrntl wbc count Dr. Daron Benton MD Work Phone: Start: 12-10-2024 Nucleated red blood cell count procedure Dr. Daron Benton MD Work Phone: Start: 12-09-2024 CT of head without contrast Dr. Daron saleh MD Work Phone: Start: 12-09-2024 Plain chest X-ray Dr. Daron Benton MD Work Phone: Start: 02-25-[address] Daron Benton Work Phone: Start: 02-23-2024 CT angiography of chest with contrast Dr. Draon Benton Work Phone: Start: 02-22-2024 Investigation of transfusion reaction Dr. Daron Benton Work Phone: Start: 02-22-[address] Daron sandoval Work Phone: Start: 02-20-[address] Daron swanson Work Phone: Start: 02-19-2024 Legionella pneumophila antigen assay Dr. Daron Benton Work Phone: Start: 02-19-2024 Measurement of occult blood in stool specimen using immunoassay Dr. Daron Benton Work Phone: Start: 02-19-2024 Dr. Daron Benton Work Phone: Start: 02-19-2024 Plain chest X-ray Dr. Daron Benton Work Phone: Start: 01-18-2024 CT of head without contrast Dr. Daron Scott Work Phone: Start: 01-11-2024 CT angiography of chest with contrast Dr. Daron Benton Work Phone: Start: 01-11-2024 CT cervical spine without contrast Dr. Marcelle Benton Work Phone: Start: 01-11-2024 CT of head without contrast Dr. Daron Scott Work Phone: Start: 01-11-2024 Plain chest X-ray Dr. Daron Benton Work Phone: Start: 12-05-2023 MRI of brain without contrast Dr. Daron Olson [facility] Work Phone: Start: 12-05-2023 CT of head without contrast Dr. Daron saleh Work Phone: Start: 12-04-2023 Diagnostic radiography of abdomen Dr. Alex Benton Work Phone: Start: 12-03-2023 CT angiography of head and neck Dr. Daron Benton Work Phone: Start: 12-03-2023 Plain chest X-ray Dr. Daron Benton Work Phone: Start: 12-03-2023 CT of head without contrast Dr. Daron Scott Work Phone: Start: 12-02-[address] Daron Benton Work Phone: Start: 12-02-2023 Dr. Daron Benton Work Phone: Start: 12-02-2023 CT of head without contrast Dr. Daron Scott Work Phone: Start: 12-02-2023 Plain chest X-ray Dr. Daron Benton Work Phone: Start: 11-27-2023 Plain chest X-ray Dr. Daron Benton Work Phone: Start: 11-27-2023 CT angiography of head and neck Dr. Daron Benton Work Phone: Start: 11-26-2023 Plain chest X-ray Dr. Daron Benton Work Phone: Start: 11-19-2023 Plain chest X-ray Dr. Daron Benton Work Phone: Start: 11-18-2023 Measurement of occult blood in stool specimen using immunoassay Dr. Daron Benton Work Phone: Start: 11-18-2023 Plain chest X-ray Dr. Daron Benton Work Phone: Start: 11-16-2023 Plain chest X-ray Dr. Daron Benton Work Phone: Start: 11-15-2023 SARS-CoV-2, Influenza & RSV (PCR) Dr. Alex Benton Work Phone: Start: 11-15-2023 Dr. Daron Benton Work Phone: Start: 11-15-2023 Plain chest X-ray Dr. Daron Benton Work Phone: Start: 10-05-2023 CT of head without contrast Dr. Daron Scott Work Phone: Start: 10-05-2023 Plain chest X-ray Dr. Daron Benton Work Phone: Start: 04-14-2023 MRI of thoracic spine Dr. Daron Benton Work Phone: Start: 04-10-2023 Radionuclide whole body bone study Dr. Marcelle Bneton Work Phone: Start: 04-08-2023 Plain chest X-ray Dr. Daron Benton Work Phone: Start: 03-20-2023 X-ray of chest posteroanterior view Dr. Daron Benton Work Phone: Start: 03-16-2023 Plain chest X-ray Dr. Daron Benton Work Phone: Start: 03-16-2023 Radiography of thoracic spine Dr. Daron sandoval Work Phone: Start: 03-16-2023 X-ray of both feet Dr. Daron Benton Work Phone: Start: 02-01-2023 Dual energy X-ray absorptiometry Dr. Nila Benton Work Phone: Start: 12-04-2022 Radiologic examination of knee Dr. Daron Benton Work Phone: Start: 05-02-2022 MRI of brain with contrast Dr. Daron swanson Work Phone: Start: 02-20-2022 Plain chest X-ray Dr. Daron Benton Work Phone: Start: 02-18-2022 Plain chest X-ray Dr. Daron Benton Work Phone: Start: 02-18-2022 CT of head without contrast Dr. Daron saleh Work Phone: Start: 02-14-2022 Pelvis X-ray Dr. Daron Benton Work Phone: Start: 01-23-2022 Radiologic examination of knee Dr. Daron Benton Work Phone: Start: 11-17-2021 CT of abdominal aorta with contrast Dr. Daron Benton Work Phone: Start: 11-25-2020 Radiologic exam chest 2 views Paloma Thompson SALES [employer]ISE [employer]OCIATE.DISASTER RESPONSE DIRECTOR Work Phone: Start: 04-19-2016 Lipid 1996 panel - Serum or Plasma Kristopher Main MD Work Phone: Start: 01-20-2016 Colonoscopy Xr Valier Work Phone: Start: 12-08-2011 Lipid 1996 panel - Serum or Plasma Xr [employer] [facility] Work Phone: Appendectomy TYE BARNETT MD Carotid endarterectomy TYE BARNETT MD Cholecystectomy TYE BARNETT MD Colonoscopy TYE BARNETT MD Dilation and curettage of uterus TYE BARNETT MD Hemorrhoid operation TYE MARTINEZ MD Intraocular lens imp lant (physical object) TYE BARNETT MD Ligation of fallopian tube Ella BARNETT MD Oophorectomy TYE BARNETT MD Specimen from breast obtained by biopsy (specimen) TYE BARNETT MD Thyroidectomy TYE Llanos Urine culture Dr. Daron Benton Work Phone: Plan of Treatment Date Care Activity Detail Author Start: 02-09-2031 DTaP/Tdap/Td Vaccines (3 - Td or Tdap) DTaP/Tdap/Td Vaccines (3 - Td or Tdap) [facility] Start: 02-09-2031 Urine microalbumin profile DTaP,Tdap,Td Vaccine (3 - Td or Tdap) [facility] Start: 2029 RSV Vaccine (1 - 1-dose 75+ series) RSV Vaccine (1 - 1-dose 75+ series) [facility] Start: 07-20-2025 Influenza vaccination Influenza Vaccine (Season Ended) [facility] Start: 06-03-2025 End: 06-03-2025 Patient encounter procedure 06/03/2025 12:30 PM EDT [facility] [address] [facility] [address] [place] [address] Lizz Lynn, ANTWON - DISASTER RESPONSE DIRECTOR [address] [place] [id number] [facility] Start: 04-22-2025 Patient discharge [facility] Start: 04-21-2025 [facility] Start: 04-20-2025 Insertion of nasogastric tube [facility] Start: 04-20-2025 [facility] Start: 04-20-2025 End: 04-20-2025 [facility] Start: 04-20-2025 Referral to service [facility] Start: 04-19-2025 Referral to gastroenterology service [facility] Start: 04-19-2025 Administration of blood product [facility] Start: 04-18-2025 Application of intermittent pneumatic compression device [facility] Start: 04-18-2025 Ambulation without limitation [facility] Start: 04-18-2025 Assessment of risk of venous thromboembolism [facility] Start: 04-18-2025 Insertion of catheter into peripheral vein [facility] Start: 04-18-2025 Providing care according to standard [facility] Start: 04-18-2025 [facility] Start: 04-18-2025 Following clinical pathway protocol [facility] Start: 04-18-2025 Verification routine [facility] Start: 04-18-2025 Admission procedure [facility] Start: 04-18-2025 Hospital admission, emergency, from emergency room, medical nature [facility] Start: 04-18-2025 End: 04-19-2025 [facility] Start: 04-18-2025 [facility] Start: 04-18-2025 Patient referral to dietitian [facility] Start: 04-17-2025 Emergency dept visit high severity&threat funcj [facility] Start: 04-11-2025 [facility] Start: 04-02-2025 [facility] Start: 03-04-2025 End: 03-04-2026 Cobalamin (Vitamin B12) [Mass/volume] in Serum or Plasma Vitamin B12 Lab Routine Mild cognitive impairment Deficiency of multiple nutrient elements Expected: 03/04/2025 (Approximate), Expires: 03/04/2026 [facility] Comment on above: Expected: 03/04/2025 (Approximate), Expi res: 03/04/2026 Start: 03-04-2025 End: 03-04-2026 Electroencephalogram EEG Neurology Routine Mild cognitive impairment Expected: 03/04/2025 (Approximate), Expires: 03/04/2026 [facility] Work Phone: Comment on above: Expected: 03/04/2025 (Approximate), Expi res: 03/04/2026 Start: 03-04-2025 End: 03-04-2026 MR Brain WO contrast MR brain wo contrast Imaging Routine Mild cognitive impairment Expected: 03/04/2025, Expires: 03/04/2026 [facility] Comment on above: Expected: 03/04/2025, Expires: Start: 03-04-2025 End: 03-04-2026 Thyrotropin [Units/volume] in Serum or Plasma TSH Lab Routine Mild cognitive impairment Fatigue, unspecified type Expected: 03/04/2025 (Approximate), Expires: 03/04/2026 [facility] Comment on above: Expected: 03/04/2025 (Approximate), Expi res: 03/04/2026 Start: 03-04-2025 End: 03-04-2026 Vitamin B1 ([facility]) Vitamin B1 ([facility]) Lab Routine Mild cognitive impairment Deficiency of multiple nutrient elements Expected: 03/04/2025 (Approximate), Expires: 03/04/2026 [facility] Comment on above: Expected: 03/04/2025 (Approximate), Expi res: 03/04/2026 Start: 03-04-2025 End: 03-04-2026 Vitamin B6 Vitamin B6 Lab Routine Mild cognitive impairment Deficiency of multiple nutrient elements Expected: 03/04/2025 (Approximate), Expires: 03/04/2026 [facility] Comment on above: Expected: 03/04/2025 (Approximate), Expi res: 03/04/2026 Start: 01-13-2025 Patient discharge [facility] Start: 01-11-2025 Following clinical pathway protocol [facility] Start: 01-11-2025 Assessment of risk of venous thromboembolism [facility] Start: 01-11-2025 Fall prevention [facility] Start: 01-11-2025 Inhalation therapy procedure [facility] Start: 01-11-2025 Insertion of catheter into peripheral vein [facility] Start: 01-11-2025 Introduction of urinary catheter [facility] Start: 01-11-2025 Measuring intake and output [facility] Start: 01-11-2025 Oxygen therapy [facility] Start: 01-11-2025 Providing care according to standard [facility] Start: 01-11-2025 Provision of activity privileges [facility] Start: 01-11-2025 Referral to director of student services [facility] Start: 01-11-2025 Referral to occupational therapist [facility] Start: 01-11-2025 Referral to service [facility] Start: 01-11-2025 Tobacco use cessation education [facility] Start: 01-11-2025 [facility] Start: 01-11-2025 Patient referral to dietitian [facility] Start: 01-10-2025 Admission procedure [facility] Start: 12-17-2024 [facility] Start: 12-11-2024 Patient discharge [facility] Start: 12-10-2024 Cardiac monitoring [facility] Start: 12-10-2024 Notification of physician [facility] Start: 12-10-2024 Oxygen therapy [facility] Start: 12-10-2024 Patient discharge [facility] Start: 12-10-2024 Patient education [facility] Start: 12-10-2024 Provision of activity privileges [facility] Start: 12-10-2024 Pulse taking [facility] Start: 12-10-2024 Systemic arterial pressure monitoring [facility] Start: 12-10-2024 Taking patient vital signs [facility] Start: 12-10-2024 Vascular disease risk assessment [facility] Start: 12-10-2024 Vital signs measurements [facility] Start: 12-10-2024 Wound care [facility] Start: 12-10-2024 [facility] Start: 12-09-2024 Referral to director of student services [facility] Start: 12-09-2024 Following clinical pathway protocol [facility] Start: 12-09-2024 Assessment of risk of venous thromboembolism [facility] Start: 12-09-2024 Insertion of catheter into peripheral vein [facility] Start: 12-09-2024 Measuring intake and output [facility] Start: 12-09-2024 Oxygen therapy [facility] Start: 12-09-2024 Providing care according to standard [facility] Start: 12-09-2024 Provision of activity privileges [facility] Start: 12-09-2024 Referral to occupational therapist [facility] Start: 12-09-2024 Referral to service [facility] Start: 12-09-2024 Tobacco use cessation education [facility] Start: 12-09-2024 [facility] Start: 12-09-2024 Admission procedure [facility] Start: 12-09-2024 Patient referral to dietitian [facility] Start: 12-08-2024 End: 12-08-2024 Patient encounter procedure 12/08/2024 11:30 AM EST [facility] [address] [place] [address] Mamta Wood APRN - CNP [address] [place] [id number] [facility] Start: 11-19-2024 Medicare Advantage Annual Wellness Visit Medicare Advantage Annual Wellness Visit [facility] Start: 07-20-2024 Covid-19 Vaccine ( season) Covid-19 Vaccine ( season) [facility] Start: 07-20-2024 COVID-19 Vaccine ( season) COVID-19 Vaccine ( season) [facility] Start: 07-20-2024 Influenza vaccination Influenza Vaccine (#1) [facility] Start: 02-25-2024 Patient discharge [facility] Start: 02-23-2024 End: 02-24-2024 [facility] Start: 02-22-2024 End: 02-22-2024 Administration of blood product [facility] Start: 02-22-2024 Transfusion of red blood cells [facility] Start: 02-22-2024 Referral to service [facility] Start: 02-22-2024 Blood chemistry [facility] Start: 02-22-2024 [facility] Start: 02-21-2024 Oxygen therapy [facility] Start: 02-21-2024 Blood chemistry [facility] Start: 02-21-2024 End: 02-22-2024 [facility] Start: 02-20-2024 Referral to occupational therapist [facility] Start: 02-20-2024 Referral to service [facility] Start: 02-20-2024 [facility] Start: 02-20-2024 Blood chemistry [facility] Start: 02-20-2024 End: 02-20-2024 [facility] Start: 02-19-2024 [facility] Start: 02-19-2024 Following clinical pathway protocol [facility] Start: 02-19-2024 Ambulation without limitation [facility] Start: 02-19-2024 Assessment of risk of venous thromboembolism [facility] Start: 02-19-2024 Elevation of head of bed [facility] Start: 02-19-2024 Inhalation therapy procedure [facility] Start: 02-19-2024 Insertion of catheter into peripheral vein [facility] Start: 02-19-2024 Measuring intake and output [facility] Start: 02-19-2024 Patient education [facility] Start: 02-19-2024 Providing care according to standard [facility] Start: 02-19-2024 Referral to gastroenterology service [facility] Start: 02-19-2024 End: 02-19-2024 [facility] Start: 02-19-2024 End: 02-19-2024 [facility] Start: 02-19-2024 Bacteria identified in Sputum by Culture [facility] Start: 02-19-2024 Legionella pneumophila Ag [Presence] in Urine [facility] Start: 02-19-2024 Streptococcus pneumoniae antigen assay [facility] Start: 02-19-2024 Verification routine [facility] Start: 02-19-2024 Admission procedure [facility] Start: 02-19-2024 End: 02-19-2024 Blood culture [facility] Start: 02-19-2024 [facility] Start: 02-19-2024 Administration of blood product [facility] Start: 02-19-2024 End: 02-20-2024 [facility] Start: 01-25-2024 End: 01-25-2024 Patient encounter procedure 01/25/2024 12:30 PM EST Office Visit [facility] [address] [place] [id number] Lizz Lynn APRN - DISASTER RESPONSE DIRECTOR [address] [place] [address] [facility] Start: 01-18-2024 [facility] Start: 01-11-2024 [facility] Start: 01-11-2024 [facility] Start: 12-07-2023 Patient discharge [facility] Start: 12-07-2023 Referral to service [facility] Start: 12-06-2023 Care planning and problem solving actions [facility] Start: 12-05-2023 [facility] Start: 12-04-2023 End: 12-05-2023 [facility] Start: 12-04-2023 Following clinical pathway protocol [facility] Start: 12-03-2023 End: 12-04-2023 [facility] Start: 12-03-2023 Care planning and problem solving actions [facility] Start: 12-03-2023 Care planning and problem solving actions [facility] Start: 12-03-2023 Speech therapy assessment [facility] Start: 12-03-2023 Inhalation therapy procedure [facility] Start: 12-02-2023 [facility] [place] Start: 12-02-2023 Providing care according to standard [facility] Start: 12-02-2023 Ambulation without limitation [facility] Start: 12-02-2023 Assessment of risk of venous thromboembolism [facility] Start: 12-02-2023 Insertion of catheter into peripheral vein [facility] Start: 12-02-2023 Measuring intake and output [facility] Start: 12-02-2023 Oxygen therapy [facility] Start: 12-02-2023 Providing care according to standard [facility] Start: 12-02-2023 Referral to occupational therapist [facility] Start: 12-02-2023 Referral to service [facility] Start: 12-02-2023 Telemedicine consultation with patient [facility] Start: 12-02-2023 [facility] Start: 12-02-2023 Blood culture [facility] Start: 12-02-2023 Verification routine [facility] Start: 12-02-2023 Hospital admission, emergency, from emergency room, medical nature [facility] Start: 12-02-2023 Admission procedure [facility] Start: 12-02-2023 [facility] Start: 12-02-2023 End: 12-02-2023 [facility] Start: 12-02-2023 [facility] Start: 11-27-2023 [facility] Start: 11-27-2023 Oxygen therapy [facility] Start: 11-27-2023 [facility] Start: 11-26-2023 [facility] Start: 11-21-2023 Patient discharge [facility] Start: 11-19-2023 Advance Directive Discussion Advance Directive Discussion [facility] Start: 11-19-2023 Medicare Advantage Annual Wellness Visit Medicare Advantage Annual Wellness Visit [facility] Start: 11-18-2023 Application of intermittent pneumatic compression device [facility] Start: 11-18-2023 Provision of activity privileges [facility] Start: 11-18-2023 Assessment of risk of venous thromboembolism [facility] Start: 11-18-2023 Fall prevention [facility] Start: 11-18-2023 Insertion of catheter into peripheral vein [facility] Start: 11-18-2023 Introduction of urinary catheter [facility] Start: 11-18-2023 Measuring intake and output [facility] Start: 11-18-2023 Providing care according to standard [facility] Start: 11-18-2023 Referral to occupational therapist [facility] Start: 11-18-2023 Referral to service [facility] Start: 11-18-2023 [facility] Start: 11-18-2023 Following clinical pathway protocol [facility] Start: 11-18-2023 Admission procedure [facility] Start: 11-16-2023 Patient discharge [facility] Start: 11-16-2023 Plain chest X-ray Chest 1 View (Portable) [facility] Start: 11-16-2023 XR Chest Single view [facility] Start: 11-16-2023 [facility] Start: 11-15-2023 Respiratory secretion precautions [facility] Start: 11-15-2023 Following clinical pathway protocol [facility] Start: 11-15-2023 Aspiration precautions [facility] Start: 11-15-2023 Assessment of risk of venous thromboembolism [facility] Start: 11-15-2023 Fall prevention [facility] Start: 11-15-2023 Incentive spirometry [facility] Start: 11-15-2023 Inhalation therapy procedure [facility] Start: 11-15-2023 Insertion of catheter into peripheral vein [facility] Start: 11-15-2023 Introduction of urinary catheter [facility] Start: 11-15-2023 Measuring intake and output [facility] Start: 11-15-2023 Oxygen therapy [facility] Start: 11-15-2023 Providing care according to standard [facility] Start: 11-15-2023 Provision of activity privileges [facility] Start: 11-15-2023 Referral to occupational therapist [facility] Start: 11-15-2023 Referral to service [facility] Start: 11-15-2023 [facility] Start: 11-15-2023 Verification routine [facility] Start: 11-15-2023 Admission procedure [facility] Start: 11-15-2023 Hospital admission, emergency, from emergency room, medical nature [facility] Start: 11-15-2023 [facility] Start: 11-15-2023 Consultation [facility] Start: 10-05-2023 [facility] Start: 10-05-2023 [facility] Start: 07-20-2023 COVID-19 Vaccine ( season) COVID-19 Vaccine ( season) [facility] Start: 07-20-2023 Influenza vaccination Influenza Vaccine (#1) [facility] Start: 04-08-2023 [facility] Start: 04-04-2023 End: 04-04-2023 Patient encounter procedure 04/04/2023 Office Visit Neurology Bavis, Kristopher R, MD [address] [place] [address] [facility] [place] Start: 03-31-2023 [facility] Start: 02-01-2023 Dual energy X-ray absorptiometry Dexa Bone Density Study [facility] Start: 02-20-2022 [facility] Work Phone: Start: 10-21-2021 Patient referral [facility] Work Phone: Start: 04-19-2021 Lipid panel Lipid Panel [facility] Start: 01-19-2021 Screening for malignant neoplasm of colon [facility] Start: 2019 Pneumococcal Vaccine: 65+ (2 of 2 - PCV) Pneumococcal Vaccine: 65+ (2 of 2 - PCV) [facility] Start: 2019 Screening for osteoporosis Bone Density Screening [facility] Start: 12-08-2016 Lipid panel Lipid Screening [facility] Start: 08-19-2016 Diabetes Screening Diabetes Screening [facility] Start: 2014 RSV Immunization aged 60 or older (1 - 1-dose 60+ series) RSV Immunization aged 60 or older (1 - 1-dose 60+ series) [facility] Start: 2014 RSV Immunization for Adults (1 - Risk 60-74 years 1-dose series) RSV Immunization for Adults (1 - Risk 60-74 years 1-dose series) [facility] Start: 08-26-2010 Screening for malignant neoplasm of breast Mammogram Screening [facility] Start: 08-19-2009 Pneumococcal Vaccine: 50+ Years (2 of 2 - PCV) Pneumococcal Vaccine: 50+ Years (2 of 2 - PCV) [facility] Start: 08-19-2009 Pneumococcal Vaccine: 65+ Years (2 - PCV) Pneumococcal Vaccine: 65+ Years (2 - PCV) [facility] Start: 08-19-2009 Pneumococcal Vaccine: 65+ Years (2 of 2 - PCV) Pneumococcal Vaccine: 65+ Years (2 of 2 - PCV) [facility] Start: 2004 Shingrix Vaccine (1 of 2) Shingrix Vaccine (1 of 2) [facility] Start: 2004 Zoster Vaccines (1 of 2) Zoster Vaccines (1 of 2) [facility] Start: 1999 Screening for malignant neoplasm of colon [facility] Start: 1994 Screening for malignant neoplasm of breast Mammogram [facility] Start: 1972 Anxiety Screening Anxiety Screening [facility] Start: 1972 Depression Screening Depression Screening [facility] Start: 1972 Diabetes mellitus screening Diabetes Screening [facility] Start: 1972 Hepatitis C screening Hepatitis C Screening [facility] Start: 1966 Depression Monitoring Depression Monitoring [facility] Start: 1966 Depression Screening Depression Screening [facility] Start: 1954 Hepatitis B Vaccines (1 of 3 - 3-dose series) Hepatitis B Vaccines (1 of 3 - 3-dose series) [facility] Start: 1954 Lipid panel Lipid Panel [facility] Start: 1954 Medicare Advantage Annual Wellness Visit (AWV) Medicare Advantage Annual Wellness Visit (AWV) [facility] Start: 1954 Screening for malignant neoplasm of colon [facility] Start: 1954 Screening for osteoporosis Bone Density Scan [facility] Start: 1954 Thyroid stimulating hormone measurement TSH Level [facility] Alanine aminotransfe rase [Enzymatic activity/volume] in Serum or Plasma [facility] Alanine aminotransfe rase [Enzymatic activity/volume] in Serum or Plasma [facility] Alanine aminotransfe rase [Enzymatic activity/volume] in Serum or Plasma [facility] Albumin [Mass/volume ] in Serum or Plasma [facility] Albumin [Mass/volume ] in Serum or Plasma [facility] Albumin [Mass/volume ] in Serum or Plasma [facility] Albumin/Globulin [Ma ss Ratio] in Serum or Plasma by Electrophoresis [facility] Work Phone: Albumin/Globulin [Ma ss Ratio] in Serum or Plasma by Electrophoresis [facility] Alkaline phosphatase [Enzymatic activity/volume] in Serum or Plasma [facility] Alkaline phosphatase [Enzymatic activity/volume] in Serum or Plasma [facility] Alkaline phosphatase [Enzymatic activity/volume] in Serum or Plasma [facility] Alpha 1 antitrypsin [Mass/volume] in Serum or Plasma [facility] Anion gap measurement [facility] Anion gap measurement [facility] Anion gap measurement [facility] Aspartate aminotrans ferase [Enzymatic activity/volume] in Serum or Plasma [facility] Aspartate aminotrans ferase [Enzymatic activity/volume] in Serum or Plasma [facility] Aspartate aminotrans ferase [Enzymatic activity/volume] in Serum or Plasma [facility] Bacteria identified in Urine by Culture Urine Culture [facility] Bilirubin measurement, urine [facility] Bilirubin measurement, urine [facility] Bilirubin, total measurement [facility] Bilirubin, total measurement [facility] Bilirubin, total measurement [facility] BUN/Creatinine ratio [facility] BUN/Creatinine ratio [facility] BUN/Creatinine ratio [facility] Calcium [Mass/volume ] in Serum or Plasma [facility] Calcium [Mass/volume ] in Serum or Plasma [facility] Calcium [Mass/volume ] in Serum or Plasma [facility] Carbon dioxide, tota l [Moles/volume] in Serum or Plasma [facility] Carbon dioxide, tota l [Moles/volume] in Serum or Plasma [facility] Carbon dioxide, tota l [Moles/volume] in Serum or Plasma [facility] Cardiac event recording [facility] CBC W Auto Different ial panel - Blood [facility] Chloride [Moles/volu me] in Serum or Plasma [facility] Chloride [Moles/volu me] in Serum or Plasma [facility] Chloride [Moles/volu me] in Serum or Plasma [facility] Creatinine [Moles/vo lume] in Serum or Plasma [facility] Creatinine [Moles/vo lume] in Serum or Plasma [facility] Creatinine [Moles/vo lume] in Serum or Plasma [facility] Electrophoresis: albumin [facility] Work Phone: Electrophoresis: albumin [facility] Electrophoresis: [id number] [facility] Work Phone: Electrophoresis: [id number] [facility] Electrophoresis: [id number] [facility] Work Phone: Electrophoresis: [id number] [facility] Electrophoresis: francisco j ma globulin [facility] Work Phone: Electrophoresis: francisco j ma globulin [facility] Globulin measurement [facility] Work Phone: Globulin measurement [facility] Glucose [Mass/volume ] in Serum or Plasma [facility] Glucose [Mass/volume ] in Serum or Plasma [facility] Glucose [Mass/volume ] in Serum or Plasma [facility] Hematocrit [Volume F raction] of Blood [facility] Hematocrit [Volume F raction] of Blood [facility] Hematocrit [Volume F raction] of Blood [facility] Hematocrit [Volume F raction] of Blood [facility] Hemoglobin [Mass/vol ume] in Blood [facility] Hemoglobin [Mass/vol ume] in Blood [facility] Hemoglobin [Mass/vol ume] in Blood [facility] Hemoglobin [Mass/vol ume] in Blood [facility] Hemoglobin [Presence ] in Urine [facility] Hemoglobin [Presence ] in Urine [facility] Measurement of keton es in urine using dipstick [facility] Measurement of keton es in urine using dipstick [facility] Measurement of renal function [facility] Measurement of renal function [facility] Measurement of renal function [facility] Microscopic urinalysis [facility] Microscopic urinalysis [facility] NM Heart Views W str ess and W radionuclide IV [facility] Organism count, micr oscopic method [facility] Patient Education [facility] Work Phone: Patient referral [facility] Work Phone: pH of Urine [facility] pH of Urine [facility] Potassium [Moles/vol ume] in Serum or Plasma [facility] Potassium [Moles/vol ume] in Serum or Plasma [facility] Potassium [Moles/vol ume] in Serum or Plasma [facility] Protein electrophore sis panel - Serum or Plasma [facility] Work Phone: Protein electrophore sis panel - Serum or Plasma [facility] Serum protein electrophoresis [facility] Work Phone: Serum protein electrophoresis [facility] Sodium [Moles/volume ] in Serum or Plasma [facility] Sodium [Moles/volume ] in Serum or Plasma [facility] Sodium [Moles/volume ] in Serum or Plasma [facility] Specific gravity of Urine [facility] Specific gravity of Urine [facility] Total globulins measurement [facility] Work Phone: Total globulins measurement [facility] Total protein measurement [facility] Total protein measurement [facility] Total protein measurement [facility] Troponin T.cardiac [Mass/volume] in Serum or Plasma by High sensitivity method [facility] Urea nitrogen [Mass/ volume] in Serum or Plasma [facility] Urea nitrogen [Mass/ volume] in Serum or Plasma [facility] Urea nitrogen [Mass/ volume] in Serum or Plasma [facility] Urinalysis, blood, qualitative [facility] Urine blood test [facility] Urine dipstick for glucose [facility] Urine dipstick for glucose [facility] Urine dipstick for l eukocyte esterase [facility] Urine dipstick for l eukocyte esterase [facility] Urine dipstick for nitrite [facility] Urine dipstick for nitrite [facility] Urine dipstick for protein [facility] Urine dipstick for protein [facility] Urine examination [facility] Urine examination [facility] Urine microscopy: ep ithelial cells [facility] Urine microscopy: ep ithelial cells [facility] Urine Microscopy: white cells [facility] Urobilinogen [Presen ce] in Urine [facility] Urobilinogen [Presen ce] in Urine [facility] US Heart Transesophageal [facility] White blood cell count [facility] Immunizations Immunization Date Immunization Notes Care Provider [facility] 08-19-2024 influenza, high dose seasonal, preservative-free Dr. Daron Benton MD Work Phone: [facility] 08-17-2023 Influenza High-Dose Quadrivalent Dr. Daron Benton Work Phone: [facility] 08-17-2023 influenza virus vacc ine, unspecified formulation Mamta Wood APRN - DISASTER RESPONSE DIRECTOR Work Phone: [facility] Breaker 09-16-2022 Covid Pfizer Bivalen t Booster Dr. Daron Benton Work Phone: [facility] 09-16-2022 Influenza High-Dose Quadrivalent Dr. Daron Benton Work Phone: [facility] 09-16-2022 influenza virus vacc ine, unspecified formulation Kristopher Main MD Work Phone: [facility] 05-17-2022 Covid (Moderna) Dr. Daron Scott Work Phone: [facility] 09-21-2021 Covid (Moderna) Dr. Daron Scott Work Phone: [facility] 02-09-2021 tetanus toxoid, redu maya diphtheria toxoid, and acellular pertussis vaccine, adsorbed Dr. Daron Benton Work Phone: [facility] 01-13-2021 Covid (Moderna) Dr. Daron Scott Work Phone: [facility] 12-16-2020 Covid (Moderna) Dr. Daron Scott Work Phone: [facility] 08-13-2019 Influenza, high dose seasonal Dr. Daron Benton MD Work Phone: [facility] 08-13-2019 influenza, high dose seasonal, preservative-free Dr. Daron Benton Work Phone: [facility] 08-13-2019 influenza virus vacc ine, unspecified formulation Xr Valier Work Phone: [facility] 08-20-2018 influenza, injectabl e, quadrivalent, preservative free Dr. Daron Benton Work Phone: [facility] 07-20-2011 influenza virus vacc ine, unspecified formulation Xr Valier Work Phone: [facility] 09-01-2009 influenza virus vacc ine, unspecified formulation Xr Valier Work Phone: [facility] 09-18-2008 influenza virus vacc ine, unspecified formulation Xr Valier Work Phone: [facility] 08-19-2008 pneumococcal polysaccharide vaccine, 23 valent Xr Valier Work Phone: [facility] 08-23-2006 diphtheria and tetan us toxoids, adsorbed for pediatric use Xr Valier Work Phone: [facility] Payers Date Payer Category Payer Self-pay [id number] 2022 Medicare O [employer] MEDICARE [id number] [facility] [id number] 2019-Present [phone] [address] [place] [address] Medicaid [id number] 2017 Medicare [id number] 2016 Medicare [id number] 2016 Unknown [id number] 1954 Unknown [id number] [id number] Unknown [id number] 2.16.840.1.008688.3.579.2.462 Unknown [id number] 2.16.840.1.401374.3.579.2.462 Unknown [id number] 2.16.840.1.006921.3.579.2.462 Unknown [id number] 2.16.840.1.058073.3.579.2.462 Unknown [id number] 2.16.840.1.575873.3.579.2.462 Unknown [id number] 2.16840.1.112337.3.579.2.462 Unknown [id number] 2.16840.1.158670.3.579.2.462 Unknown [id number] 2.840.1.980892.3.579.2.462 Unknown [id number] 2.840.1.747857.3.579.2.462 Unknown [id number] 2.840.1.019208.3.579.2.462 Unknown [id number] 2.840.1.246186.3.579.2.462 Unknown [id number] 2.840.1.289062.3.579.2.462 Unknown [id number] 2.840.1.092453.3.579.2.462 Unknown [id number] 2.840.1.511500.3.579.2.462 Unknown [id number] 2.840.1.377923.3.579.2.462 Unknown [id number] 2.840.1.640985.3.579.2.462 Unknown [id number] 2.840.1.615538.3.579.2.462 Unknown [id number] .840.1.088058.3.579.2.462 Unknown [id number] .840.1.285023.3.579.2.462 Unknown [id number] 2.840.1.170438.3.579.2.462 Unknown [id number] 2.840.1.457201.3.579.2.462 Unknown [id number] 2.840.1.289700.3.579.2.462 Unknown [id number] 2.16.840.1.055010.3.579.2.462 Unknown [id number] 2.16.840.1.805139.3.579.2.462 Unknown [id number] [id number]2 Unknown [id number] 2.16.840.1.451812.3.579.2.462 Unknown [id number] 2.16.840.1.848770.3.579.2.462 Unknown [id number] 2.16.840.1.386688.3.579.2.462 Unknown [id number] 2.16.840.1.929730.3.579.2.462 Unknown [id number] 2.16.840.1.042634.3.579.2.462 Unknown [id number] 2.16.840.1.729445.3.579.2.462 Unknown [id number] 2.16.840.1.630311.3.579.2.462 Unknown [id number] 2.16.840.1.507387.3.579.2.462 Unknown [id number] 2.16.840.1.508188.3.579.2.462 Unknown [id number] 2.16.840.1.632650.3.579.2.462 Unknown [id number] 2.16.840.1.096415.3.579.2.462 Unknown [id number] 2.16.840.1.844014.3.579.2.462 Unknown [id number] 2.16.840.1.492629.3.579.2.462 Unknown [id number] 2.16.840.1.411665.3.579.2.462 Unknown [id number] 2.16.840.1.968948.3.579.2.462 Unknown [id number] 2.16.840.1.514696.3.579.2.462 Unknown [id number] 2.16840.1.090423.3.579.2.462 Unknown [id number] 2.16840.1.859394.3.579.2.462 Unknown [id number] 2.16.840.1.809777.3.579.2.462 Unknown [id number] 2.16.840.1.330951.3.579.2.462 Unknown [id number] 2.16840.1.447107.3.579.2.462 Unknown [id number] 2.16840.1.599943.3.579.2.462 Unknown [id number] 2.16840.1.433908.3.579.2.462 Unknown [id number] 2.16840.1.319837.3.579.2.462 Unknown [id number] 2.840.1.204161.3.579.2.462 Unknown [id number] 2.840.1.826495.3.579.2.462 Social History Date Type Detail Facility Start: 02-17-2022 End: 02-21-2024 Tobacco smoking status WVIS Unknown if ever smoked [facility] Start: 01-18-2020 Occasional [facility] Start: 01-18-2020 None [facility] Start: 01-29-2020 Alone [facility] Start: 02-09-2021 Cigarettes [facility] Start: 1955 Sex Assigned At Female W [facility] Start: 12-08-2016 End: 05-11-2025 Tobacco smoking status WVIS Smokes tobacco daily [facility] History of tobacco use Cigarette Smoker [facility] Start: 04-04-2023 End: 04-08-2025 Alcohol intake Ex-drinker (finding) [facility] Start: 04-04-2023 End: 04-08-2025 History of Social function [facility] Start: 04-04-2023 End: 04-08-2025 Tobacco use panel [facility] Start: 1955 Sex Assigned At Not on file [facility] Start: 12-08-2016 End: 03-04-2025 Tobacco use and exposure Smokeless tobacco non-user [facility] Start: 11-25-2020 Alcoholic beverage intake Not Asked [facility] National Score (1-100), lower number is lower risk Not on file [facility] Start: 10-26-2020 End: 10-05-2022 Exposure to SARS-CoV-2 (event) Not sure [facility] Start: 06-19-2022 Sex Female (finding) [facility] Start: 04-02-2025 End: 04-20-2025 Tobacco smoking status NHIS Current Light tobacco smoker [facility] NEGATED: Highlighted row [facility] Medical Equipment Procedure Code Equipment Code Equipment Origin al Text Equipment Identifier Dates GDC aneurysm coil FDA Start: 02-03-2014 GDC aneurysm coil FDA Start: 02-03-2014 Protege GFS stent FDA Start: 08-25-2015 ([id number]) [id number] FDA Start: 01-18-2022 GDC aneurysm coil FDA Start: 02-03-2014 GDC aneurysm coil FDA Start: 02-03-2014 Protege GFS stent FDA Start: 08-25-2015 GDC aneurysm coil FDA Start: 02-03-2014 GDC aneurysm coil FDA Start: 02-03-2014 Protege GFS stent FDA Start: 08-25-2015 GDC aneurysm coil FDA Start: 02-03-2014 GDC aneurysm coil FDA Start: 02-03-2014 Protege GFS stent FDA Start: 08-25-2015 GDC aneurysm coil FDA Start: 02-03-2014 GDC aneurysm coil FDA Start: 02-03-2014 Protege GFS stent FDA Start: 08-25-2015 GDC aneurysm coil FDA Start: 02-03-2014 GDC aneurysm coil FDA Start: 02-03-2014 Protege GFS stent FDA Start: 08-25-2015 GDC aneurysm coil FDA Start: 02-03-2014 GDC aneurysm coil FDA Start: 02-03-2014 Protege GFS stent FDA Start: 08-25-2015 GDC aneurysm coil FDA Start: 02-03-2014 GDC aneurysm coil FDA Start: 02-03-2014 Protege GFS stent FDA Start: 08-25-2015 GDC aneurysm coil FDA Start: 02-03-2014 GDC aneurysm coil FDA Start: 02-03-2014 Protege GFS stent FDA Start: 08-25-2015 GDC aneurysm coil FDA Start: 02-03-2014 GDC aneurysm coil FDA Start: 02-03-2014 Protege GFS stent FDA Start: 08-25-2015 GDC aneurysm coil FDA Start: 02-03-2014 GDC aneurysm coil FDA Start: 02-03-2014 Protege GFS stent FDA Start: 08-25-2015 GDC aneurysm coil FDA Start: 02-03-2014 GDC aneurysm coil FDA Start: 02-03-2014 Protege GFS stent FDA Start: 08-25-2015 GDC aneurysm coil FDA Start: 02-03-2014 GDC aneurysm coil FDA Start: 02-03-2014 Protege GFS stent FDA Start: 08-25-2015 GDC aneurysm coil FDA Start: 02-03-2014 GDC aneurysm coil FDA Start: 02-03-2014 Protege GFS stent FDA Start: 08-25-2015 GDC aneurysm coil FDA Start: 02-03-2014 GDC aneurysm coil FDA Start: 02-03-2014 Protege GFS stent FDA Start: 08-25-2015 GDC aneurysm coil FDA Start: 02-03-2014 GDC aneurysm coil FDA Start: 02-03-2014 Protege GFS stent FDA Start: 08-25-2015 GDC aneurysm coil FDA Start: 02-03-2014 GDC aneurysm coil FDA Start: 02-03-2014 Protege GFS stent FDA Start: 08-25-2015 GDC aneurysm coil FDA Start: 02-03-2014 GDC aneurysm coil FDA Start: 02-03-2014 Protege GFS stent FDA Start: 08-25-2015 GDC aneurysm coil FDA Start: 02-03-2014 GDC aneurysm coil FDA Start: 02-03-2014 Protege GFS stent FDA Start: 08-25-2015 GDC aneurysm coil FDA Start: 02-03-2014 GDC aneurysm coil FDA Start: 02-03-2014 Protege GFS stent FDA Start: 08-25-2015 GDC aneurysm coil FDA Start: 02-03-2014 GDC aneurysm coil FDA Start: 02-03-2014 Protege GFS stent FDA Start: 08-25-2015 GDC aneurysm coil FDA Start: 02-03-2014 GDC aneurysm coil FDA Start: 02-03-2014 Protege GFS stent FDA Start: 08-25-2015 GDC aneurysm coil FDA Start: 02-03-2014 GDC aneurysm coil FDA Start: 02-03-2014 Protege GFS stent FDA Start: 08-25-2015 GDC aneurysm coil FDA Start: 02-03-2014 GDC aneurysm coil FDA Start: 02-03-2014 Protege GFS stent FDA Start: 08-25-2015 FDA Start: 02-03-2014 FDA Start: 02-03-2014 FDA Start: 08-25-2015 FDA Start: 02-03-2014 FDA Start: 02-03-2014 FDA Start: 08-25-2015 FDA Start: 02-03-2014 FDA Start: 02-03-2014 FDA Start: 08-25-2015 FDA Start: 02-03-2014 FDA Start: 02-03-2014 FDA Start: 08-25-2015 FDA Start: 02-03-2014 FDA Start: 02-03-2014 FDA Start: 08-25-2015 FDA Start: 02-03-2014 FDA Start: 02-03-2014 FDA Start: 08-25-2015 FDA Start: 02-03-2014 FDA Start: 02-03-2014 FDA Start: 08-25-2015 FDA Start: 02-03-2014 FDA Start: 02-03-2014 FDA Start: 08-25-2015 FDA Start: 02-03-2014 FDA Start: 02-03-2014 FDA Start: 08-25-2015 GDC aneurysm coil FDA Start: 02-03-2014 GDC aneurysm coil FDA Start: 02-03-2014 Protege GFS stent FDA Start: 08-25-2015 GDC aneurysm coil FDA Start: 02-03-2014 GDC aneurysm coil FDA Start: 02-03-2014 Protege GFS stent FDA Start: 08-25-2015 FDA Start: 02-03-2014 FDA Start: 02-03-2014 FDA Start: 08-25-2015 FDA Start: 02-03-2014 FDA Start: 02-03-2014 FDA Start: 08-25-2015 FDA Start: 02-03-2014 FDA Start: 02-03-2014 FDA Start: 08-25-2015 Goals Date Patient Goal Desired Activity /State Functional Status Date Assessment Result Facility 04-22-2025 Functional status Ambulates [facility] Work Phone: 01-13-2025 Functional status Standby Assist [facility] Work Phone: 01-13-2025 Functional status Ambulates;Bathroom Priv ilege [facility] Work Phone: 12-11-2024 Functional status Bathroom Privilege [facility] Work Phone: 02-25-2024 Functional status Ambulates [facility] Work Phone: 12-07-2023 Functional status Ambulates;Chair [facility] Work Phone: 11-21-2023 Functional status Ambulates [facility] Work Phone: 11-16-2023 Functional status Ambulates [facility] Work Phone: 11-09-2022 Functional Status Ambulating in room [facility] 11-09-2022 Functional Status [facility] 11-09-2022 Functional Status Maintained [facility] Mental Status Date Assessment Result Facility 04-22-2025 Cognitive function Voice/Name;Touch/Shaki ng [facility] Work Phone: 04-18-2025 Cognitive function Level Of Cons ciousness Awake;Alert;Appropriate;Follow s Commands [facility] Work Phone: 04-02-2025 Cognitive function Awake;Appropr iate;Follows Commands;Drowsy [facility] Work Phone: 01-13-2025 Cognitive function Voice/Name [facility] Work Phone: 12-11-2024 Cognitive function Voice/Name [facility] Work Phone: 02-25-2024 Cognitive function Voice/Name [facility] Work Phone: 02-19-2024 Cognitive function Awake;Alert;A ppropriate;Follow s Commands [facility] Work Phone: 12-07-2023 Cognitive function Voice/Name [facility] Work Phone: 12-02-2023 Cognitive function Awake;Drowsy [facility] Work Phone: 11-27-2023 Cognitive function Voice/Name [facility] Work Phone: 11-21-2023 Cognitive function Voice/Name [facility] Work Phone: 11-18-2023 Cognitive function Level Of Cons ciousness Awake;Alert;Appropriate;Follow s Commands [facility] Work Phone: 11-16-2023 Cognitive function Voice/Name [facility] Work Phone: 11-15-2023 Cognitive function Level Of Cons ciousness Awake;Alert;Appropriate;Follow s Commands [facility] Work Phone: 10-05-2023 Cognitive function Awake;Alert;A ppropriate;Follow s Commands [facility] Work Phone: 04-08-2023 Cognitive function Level Of Cons ciousness Awake;Alert;Appropriate [facility] Work Phone: 03-16-2023 Cognitive function Level Of Cons ciousness Awake;Alert;Appropriate;Follow s Commands [facility] Work Phone: 11-09-2022 Mental Status Orientation Oriented x 4 [facility] 11-09-2022 [facility] Mental Status [facility] 02-18-2022 Cognitive function Voice/Name [facility] Work Phone: Clinical Notes 11-25-2020 to 05-15-2025 Telephone Encounter - Maeve Jacobson - 05/06/2025 1:48 PM EDTTelephone Encounter - Maeve Jacobson - 05/06/2025 1:48 PM EDTTelephone Encounter - Madelin Olvera - 05/05/2025 2:39 PM EDT Note Date & Type Note Facility 05-15-2025 Radiology Diagnos tic study note [facility] 05-06-2025 Telephone encount er Note Faxed New Auth to [facility] @ [phone], Valid 05/06/25 Thru 07/05/25 Brain MRI wo Contrast. [facility] 05-06-2025 Miscellaneous Notes Formattin g of this note might be different from the original. Faxed New Auth to [facility] @ [phone], Valid 05/06/25 Thru 07/05/25 Brain MRI wo Contrast. Name of caller: [facility] Contact phone number: [phone] Relationship to Patient: Imaging Provider: Robert Practice: neuro Chief Complaint/Reason for Call: Viki states patients prior auth is expiring and will need a new one for patient schedule MRI on 05/20 @130 fax # [phone]. documented in this encounter [facility] 05-05-2025 Telephone encount er Note Name of caller: [facility] Contact phone number: [phone] Relationship to Patient: Imaging Provider: Robert Practice: neuro Chief Complaint/Reason for Call: Viki states patients prior auth is expiring and will need a new one for patient schedule MRI on 05/20 @130 fax # [phone]. [facility] 04-24-2025 Telephone encount er Note Baclofen 20mg sent to Sp in [place]. [facility] 04-24-2025 Miscellaneous Notes Formattin g of this note might be different from the original. Baclofen 20mg sent to Sp in [place]. Name of caller: Angélica Contact phone number: [phone] Relationship to Patient: patient Provider: AURORA Lynn Practice: Neurology Chief Complaint/Reason for Call: Angélica advised that she just got out of the hospital, and she needs her Baclofen script sent in to her [facility] - [place], [place] - [address] [[id number]]. She does not use the [facility] any longer, and she is completely out. Best time of day caller can be reached: any Patient advised that office/PCP has 24-48 business hours to return their call: Yes documented in this encounter [facility] 04-24-2025 Telephone encount er Note Name of caller: Angélica Contact phone number: [phone] Relationship to Patient: patient Provider: AURORA Lynn Practice: Neurology Chief Complaint/Reason for Call: Angélica advised that she just got out of the hospital, and she needs her Baclofen script sent in to her [facility] [place], [place] - [address] [[id number]]. She does not use the [facility] any longer, and she is completely out. Best time of day caller can be reached: any Patient advised that office/PCP has 24-48 business hours to return their call: Yes [facility] 04-22-2025 Discharge summary Note Date/Time April 22, 2025 2:21pm [facility] Medical Records Department [address] [place] [address] Discharge Summary 04/22/25 1411 MR#: [id number] Acct: [id number] Name: ANGÉLICA YO Rep #:[id number] : 1955 69 From: Roman Mckeon MD PCP: Dr. Daron Benton MD Status:ADM IN Location: NV3 AE429-5 Providers Date of Admission: 04/18/25 Primary Care Physician: Dr. Daron Benton MD Consultations 04/19/25 08:12 Consult: Gastroenterology Routine Consulting Provider: [facility] Reason for Consult: GI Bleed EMERGENT Consult: No MD Notified: Yes Date Notified: 04/19/25 Time Notified: 08:54 Method of Notification: Text Comments:: MARIANA Cardona notified. Reason For Visit: SYMPTOMATIC ANEMIA Diagnosis Discharge Diagnosis (1) Symptomatic anemia: Status: Acute Code(s): D64.9 - Anemia, unspecified Plan Patient is a 68-year-old lady presented with fatigue found to be anemic with hemoglobin of 7.3. 1. Symptomatic anemia ? Suspected to be secondary to chronic GI bleed exacerbated by the use of systemic anticoagulant?apixaban. Patient is on apixaban for systemic anticoagulation for A-fib. Patient hemoglobin on admission was 7.3. Patient hemoglobin did drop to 6.3 and order was given for patient to be transfused 1 unit PRBC. 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 Subsequent monitoring with daily H&Hordered consult placed to GI ? 04/20/2025; patient hemoglobin up to 10.6. Patient was kept n.p.o. pending GI evaluation ? 04/21/2025; patient underwent EGD the day prior findings and recommendations as below ?Impressions : - Normal esophagus. - No gross lesions in the entire stomach. 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 Treated with a heater probe. - No specimens collected. Recommendations : - Return patient to hospital [facility] for ongoing care. - Full liquid diet. - Continue present medications. -Plan is for patient to complete her evaluation with a colonoscopy. Patient is however refusing to drink the prep she also refused NG. Hgb down to 9.4 Patient colonoscopy performed demonstrated One 10 mm polyp at the splenic flexure, removed with a hot snare. Resected and retrieved. - Diverticulosis in the recto-sigmoid colon, in the sigmoid colon, in the descending colon and in the ascending colon. - A few ulcers in the rectum. Biopsied. Recommendation: - Discharge patient to home. - Resume previous diet. - Continue present medications. - Await pathology results. - Repeat colonoscopy in 3 years for surveillance. 2. Paroxysmal A-fib ? Rate controlled on systemic anticoagulation with apixaban held given her presentation ? Patient apixaban held for a week on discharge 3.. Hypertension - Blood pressure controlled, home medications continued with dose adjustment as needed 4. Multiple sclerosis ? Per history patient is on baclofen for muscle relaxation 5. Hypothyroidism ? Patient is on levothyroxine did continue with home dose 6. Peripheral arterial disease ? With history of bilateral carotid artery stenosis, peripheral vascular occlusive disease. Patient was on systemic anticoagulation with apixaban held given about reasons 7. Dyslipidemia ?Patient is on statin therapy, continued at home dose 8. DVT prophylaxis ? Patient is on apixaban held 9. Chronic pain syndrome ? Restarted patient home pain regimen Medications at Discharge Home Medications gabapentin 800 mg tablet 800 mg PO TID MS 07/16/18 baclofen 20 mg tablet 20 mg PO Q6H MS 08/11/21 levothyroxine 50 mcg tablet 50 mcg PO DAILY thyroid 08/11/21 oxycodone 10 mg tablet 10 mg PO Q6H PRN pain 05/24/23 dextromethorphan-guaifenesin ER 60 mg-1,200 mg tab,extend release,12hr (Mucinex DM) 1 tab PO Q12H PRN cough/congest 02/19/24 famotidine 40 mg tablet 40 mg PO QDAY PRN indigestion 11/24/24 lisinopril 10 mg tablet 10 mg PO BID blood pressure 11/24/24 aspirin 81 mg tablet,delayed release 81 mg PO BREAKFAST heart health #30 tabs 12/11/24 amlodipine 5 mg tablet (Norvasc) 2.5 mg (1/2 x 5 mg) PO QDAY bp #90 tabs 01/13/25 carvedilol 3.125 mg tablet 3.125 mg PO BIDCM heart #180 tabs 03/03/25 apixaban 5 mg tablet (Eliquis) 5 mg PO Q12H anticoagulation #180 tabs 03/09/25 Held on 04/22/25. Instructions: Resume on 04/28/25. cholecalciferol (vitamin D3) 125 mcg (5,000 unit) capsule 125 mcg PO DAILY supplement 04/18/25 docusate sodium 100 mg capsule (Colace) 100 mg PO BID stool softener 7 days #14 caps 04/18/25 doxepin 10 mg/mL oral concentrate 5 - 10 mg PO QHS 04/18/25 ipratropium bromide 42 mcg (0.06 %) nasal spray 2 spray intranasal TID PRN allergy symptoms 04/18/25 naloxegol 25 mg tablet (Movantik) 25 mg PO DAILY 30 days #30 tabs 04/18/25 rosuvastatin 10 mg tablet 10 mg PO QHS hld 04/18/25 pantoprazole 40 mg tablet,delayed release (Protonix) 40 mg PO DAILY 90 days #90 tabs 04/22/25 polysaccharide iron complex 150 mg iron capsule (Ferrex) 150 mg PO DAILY 90 days#90 caps 04/22/25 potassium chloride 20 mEq/15 mL oral liquid 20 meq (15 mL) PO DAILY 30 days #450mL 04/22/25 Hospital Course Summary of Care Provided Minutes Spent on Discharge: 38 Physical Exam Narrative GENERAL: cooperative HEENT: Atraumatic; normocephalic EYES; Anicteric, pallor of the conjunctiva NECK; supple, normal thyroid, RESPIRATORY: Diminished to auscultation CARDIOVASCULAR: Regular S1 S2, GI: soft, normoactive bowel sounds, : No Renal angle tenderness; EXTREMITIES: No edema, no clubbing, MUSCULOSKELETAL: no muscle wasting NEURO: Awake; no lateralizing signs. SKIN: No Rash PSYCH; Flat affect Weight / BMI Weight Weight: 45.7 kg Body Mass Index (BMI) 16.7 ABG / Lab / Microbiology Data 04/22/25 05:15 04/22/25 05:15 Laboratory: Laboratory Results - last 24 hr 04/22/25 05:15: WBC 7.1, RBC 3.51 L, Hgb 9.4 L, Hct 29.2 L, MCV 83.2, MCH 26.8 L, MCHC 32.2, RDW Std Deviation 52.6 H, RDW Coeff of David 17.5 H, Plt Count 152, MPV 9.7, Sodium 137, Potassium 3.8, Chloride 107, Carbon Dioxide 18.8 L, Anion Gap 12, BUN 8, Creatinine 1.08, Estim Creat Clear Calc 34.97 L, Est GFR (MDRD) Non-Af 55 L, BUN/Creatinine Ratio 7.0 L, Glucose 89, Calcium 8.3 Microbiology: Microbiology 04/21/25 10:00 Stool Stool Occult Blood (CARMEN) - Final Occult Blood Positive D/C Instructions Discharge Diet: No restrictions Discharge Activity: Return to Normal Activity Call your doctor if you observe: Fever of 101 or Higher, Shortness of breath, Fainting spells and Chest pain DC O2, CPAP, BIPAP Needs Home O2 Discharge instructions: No Meaningful Use Info Meaningful Use Meaningful Use Diagnoses (Choose all that apply): None applicable Ischemic Stroke Statin Dosing Therapy Reference: STATIN DOSE THERAPY REFERENCE: * Patients > 75 years receive moderate or high dose statin therapy. * Patients 75 years or YOUNGER should receive HIGH intensity statin dose unless contraindicated. You will be required to document reason for non-treatment if statin daily dose does not meet guidelines. HIGH DOSE STATIN THERAPY DAILY Atorvastatin > than or = to 40 mg Rosuvastatin > than or = to 20 mg Amlodipine + Atorvastatin > than or = to 2.5/40 mg Ezetimibe + Simvastatin 10/80 mg Simvastatin 80mg Discharge Plan Admission Admit Date/Time: 04/18/25 21:20 Attending Provider: Roman Mckeon Primary Care Provider: Daron Benton Consulting Providers: Sachin Murillo Discharge Orders/Prescriptions Prescriptions: New polysaccharide iron complex [Ferrex 150] 150 mg iron Capsule 150 mg PO DAILY 90 Days Qty: 90 0RF potassium chloride 20 mEq/15 mL Liquid 20 meq PO DAILY 30 Days Qty: 450 0RF pantoprazole [Protonix] 40 mg tablet,delayed release (DR/EC) 40 mg PO DAILY 90 Days Qty: 90 0RF Continued gabapentin 800 mg tablet 800 mg PO TID baclofen 20 mg tablet 20 mg PO Q6H levothyroxine 50 mcg tablet 50 mcg PO DAILY Patient Comments: take 1 tablet by mouth once daily oxycodone 10 mg tablet 10 mg PO Q6H PRN Patient Comments: take 1 tab q6 PRN for pain famotidine 40 mg tablet 40 mg PO QDAY PRN (Reason: indigestion) lisinopril 10 mg tablet 10 mg PO BID dextromethorphan-guaifenesin [Mucinex DM] 60-1,200 mg tablet extended release 12 hr 1 tab PO Q12H PRN (Reason: cough/congest) doxepin 10 mg/mL concentrate 5 - 10 mg PO QHS cholecalciferol (vitamin D3) 125 mcg (5,000 unit) capsule 125 mcg PO DAILY rosuvastatin 10 mg tablet 10 mg PO QHS ipratropium bromide 42 mcg (0.06 %) spray,non-aerosol 2 spray intranasal TID PRN (Reason: allergy symptoms) Rx Instructions: administer into each nostril aspirin 81 mg Tablet,Delayed Release (Dr/Ec) 81 mg PO BREAKFAST Qty: 30 2RF amlodipine [Norvasc] 5 mg tablet 2.5 mg PO QDAY Qty: 90 3RF docusate sodium [Colace] 100 mg capsule 100 mg PO BID 7 Days Qty: 14 0RF Movantik 25 mg tablet 25 mg PO DAILY 30 Days Qty: 30 0RF Rx Instructions: must be taken on empty stomach; no food 1 hr after or 2-3 hrs before dose carvedilol 3.125 mg tablet 3.125 mg PO BIDCM Qty: 180 3RF Held Eliquis 5 mg tablet 5 mg PO Q12H Qty: 180 3RF Hold Instructions: Resume on 04/28/25. Referrals / Follow Up: Daron Benton MD [Primary Care Provider] - Within 1 Week Disposition Disposition (needs filled in before D/C Order can be placed): Home Health Service Charges/Coding Visit Charges Inpatient E&M: 73579 Disch Hosp >30min 04/22/25 1421 <Electronically signed by Roman Mckeon MD> Cosigner Signature (if applicable): CC: Dr. Roman Mckeon MD; Dr. Daron Benton MD~ Signed [facility] Work Phone: 1(579) 479-267406-04-2025 Consult note Author Benjamin Cm [facility] Note Date/Time April 22, 2025 1:30p m [facility] Medical Records Department [address] [place] [address] Anesthesia Postop Eval I 04/22/25 1329 MR#: [id number] Acct: [id number] Name: ANGÉLICA YO Rep #:[id number] : 1955 69 From: Benjamin Cm PCP: Dr. Daron eBnton MD Status:ADM IN Y Race: C Location: NV3 MS305 -1 Anesthesia: Postop Eval I Current Vital Signs Temperature: 98.1 F Pulse Rate: 109 Blood Pressure: 132/64 Respiratory Rate: 16 Pulse Ox: 99 Oxygen Delivery Method: Room Air Assessment Airway patent: Yes Spontaneous unlabored respirations: Yes Mental status: Awake nausea: No Vomiting: No Anesthesia Complication: No Fluid Hydration Crystalloid volume administer (ml): 900 Total IV fluid infused: 900 Progress Note Anesthesia document: Postop Eval 1 completed: Yes 04/22/25 1330 <Electronically signed by Benjamin Cm > Date _ Benjamin Cm Cosigner Signature: Date CC: ~ Signed [facility] Work Phone: 1(346) 452-769806-04-2025 Progress note Author Kevin Gonzalez [facility] Note Date/Time April 22, 2025 12:31 pm [facility] Medical Records Department [address] [place] [id number] Progress Note 04/22/25 1230 MR#: [id number] Acct: [id number] Name: ANGÉLICA YO Rep #:[id number] 2 : 1955 69 From: Kevin Gonzalez DO PCP: Dr. Daron Benton MD Status:ADM IN Location: [place] [address] Progress Note The patient underwent NG tube placement yesterday. She tolerated the prep. Sheis for colonoscopy today. Physical Exam Const alert, oriented x3, no apparent distress and healthy appearing General Appearance: cooperative GI normal to inspection, nondistended, normoactive bowel sounds, soft to palpation,non-tender and non-distended Percussion: normal to percussion Rectal Exam: deferred Assessment & Plan Assessment/Plan (1) Symptomatic anemia: PLAN: Plan Patient is a 69-year-old lady presented with fatigue found to be anemic with hemoglobin of 7.3. She is on anticoagulation with Eliquis for atrial fibrillation. Hemoglobin is up after blood transfusion. She was explained alternatives, risk and benefits include not withstanding bleeding, infection, sepsis, perforation, need for more surgery . She will have an ASA of 3. 04/21/2025.-Patient underwent an upper endoscopy yesterday and no etiology of GI bleed was seen. She was supposed to get prep for a colonoscopy last night. However she can not tolerate NG tube placement and could not tolerate the prep. We will place NG tube and order endoscopy today. And then she can take the tube after her prep is complete. 04/22/2025-patient will have colonoscopy today. Patient was explained alternatives, risk and benefits include not withstanding bleeding, pressure, sepsis, perforation, need for more transient . She will have an ASA of 3. Visit Charges Inpatient E&M: 06639 Subs Hosp L2 04/22/25 1231 <Electronically signed by Kevin Gonzalez DO> Kevin Gonzalez DO Cosigner Signature (if applicable): CC: ~ Signed [facility] Work Phone: [phone] 298-189906-04-2025 [facility]06-04-2025 Procedure [facility]06-04-2025 Procedure [facility]06-04-2025 Consult note Author Aime Covarrubias [facility] Note Date/Time April 22, 2025 11:[address] [facility] Medical Records Department [address] [place] [address] Pre-Anesthesia Evaluation 04/22/25 1116 MR#: [id number] Acct: [id number] Name: ANGÉLICA YO Rep #:[id number] 4 : 1955 69 From: Aime Covarrubias MD PCP: Dr. Daron Benton MD Status:ADM IN Y Race: C Location: NV3 MS305 -1 ASA Classification* ASA Classification ASA Classification: 3 (pAF, HTN, MS, Hypothyroid, PAD (hx bilateral carotid artery stenosis)) Assessment & Plan Anesthesia* Anesthesia Assessment Anesthesia Assessment: Discussed sedation and/or anesthesia options, risks, benefits, and alternatives with patient/parents/legal guardian/POA. Questions invited. The patient/parents/legal guardian/POA seems to understand and agrees to proceedwith anesthesia plan. Reviewed the physical assessment, medical history, allergy history and patient home medications list prior to surgery/procedure/anesthetic and documented any changes. Performed airway and anesthesia risk assessments. Anesthesia Type Anesthesia Type: General History Source History Obtained from:: Patient and Chart Anesthesia Focused Assessment* Temperature: 97.7 F Pulse Rate: 59 Blood Pressure: 161/79 Respiratory Rate: 15 Pulse Ox: 96 Oxygen Delivery Method: Room Air Airway Assessment Mouth opens: >3 cm Mallampati Score: II Teeth Condition: Dentures, Lower and Upper Neck Range of motion (ROM): Full ROM Focused Labs Anesthesia Preop lab: CBC WBC 7.1 K/mm3 (4.4-11.0) 04/22/25 05:15 04/22/25 RBC 3.51 M/mm3 (4.2-5.4) L 04/22/25 05:15 04/22/25 Hgb 9.4 g/dL (12.0-15.0) L 04/22/25 05:15 04/22/25 Hct 29.2 % (37-47) L 04/22/25 05:15 04/22/25 Plt Count 152 K/mm3 (150-450) 04/22/25 05:15 04/22/25 CHEMISTRY Potassium 3.8 mmol/L (3.3-5.1) 04/22/25 05:15 04/22/25 Sodium 137 mmol/L (133-145) 04/22/25 05:15 04/22/25 Magnesium 2.2 mg/dL (1.5-2.2) 04/20/25 05:40 04/20/25 Phosphorus 3.5 mg/dL (2.7-4.5) 04/20/25 05:40 04/20/25 BUN 8 mg/dL (4-19) 04/22/25 05:15 04/22/25 Creatinine 1.08 mg/dL (0.70-1.20) 04/22/25 05:15 04/22/25 Glucose 89 mg/dL (70-99) 04/22/25 05:15 04/22/25 POC Glucose 109 mg/dL (74-106) H 04/21/25 01:15 04/21/25 TSH 5.620 uIU/mL (0.300-4.200) H 04/20/25 05:40 COAG PT 12.9 SECONDS (11.7-14.9) 01/11/25 00:18 Pre-Assessment Diagnosis/Proposed Procedure Planned Operative Procedure(s): EGD 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 - test clerk: 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 - test clerk Hx Hospitalization No 04/15/21 11:49 Any Problems With Anesthesia No 02/24/24 23:50 Cholinesterase deficiency No 02/24/24 23:50 You/Your Family Experience No 02/24/24 23:50 fever (hyperthermia) with Relationship Recent Exposure to Contagious No 02/25/24 11:12 Disease Does patient have nerve No 02/24/24 23:50 stimulator Patient instructed to have device shut off --Does patient have Pacemaker No 04/21/25 15:30 or ICD? When Was Last Pacemaker Check QUESTION #4 FULL TEXT: You/Your Family Experience fever (hyperthermia) with Anesthesia Last Oral Intake Last Oral intake: Last Oral Intake NPO since 00:01 04/21/25 15:30 Meds taken in AM with sips of Yes 04/21/25 15:30 water? Meds patient instructed to see 04/21/25 15:30 take am of surgery PONV PONV - test clerk: PONV - test clerk Female HX of Motion Sickness HX of N/V After Surgery Non-Smoker Duration of Surgery greater than 60 minutes Number of Risk Factors PONV Score Height & Weight Height & Weight: Anesthesia: Height & Weight Height 5 ft 5 in 04/21/25 15:30 Weight: 45.7 kg 04/21/25 15:30 Body Mass Index (BMI) 16.7 04/21/25 15:30 Respiratory Assessment Respiratory Assessment - test clerk: Respiratory Tract Infection Hx - test clerk Hx Respiratory Tract Infection No 02/24/24 23:50 STOP Sleep Apnea STOP Sleep Apnea - test clerk: STOP Sleep Apnea - test clerk Hx Hypertension Yes 04/18/25 21:53 Hx Sleep Apnea No 04/18/25 21:53 CPAP BIPAP Do you snore loudly (louder No 04/18/25 21:53 than talking or can be heard Do you often feel tired/ No 04/18/25 21:53 fatigued/ sleepy during daytime? Has anyone observed you stop No 04/18/25 21:53 breathing during sleep? STOP Results Negative 04/21/25 17:00 QUESTION #5 FULL TEXT : Do you snore loudly (louder than talking or can be heard through closed doors)? 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 Specify any problems Hx of Preganancy in last 3 No 04/18/25 21:53 Months Nurse Filling Out Transfusion DREDICK 04/18/25 21:53 & Questions: Date: 04/18/25 04/18/25 21:53 Time: 21:54 04/18/25 21:53 Patient unable to answer at this time (ie. 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 Hx Now Gestational Age (in weeks): EDC: Hx Hx Para Hx Section SAB No 02/24/24 23:50 Active Medications Active Medications: Current Medications Generic Name Dose Route Start Last Admin Trade Name Freq PRN Reason Stop Dose Admin Acetaminophen 650 mg 04/19/25 07:19 04/21/25 10:19 Acetaminophen 325 Mg Tablet PO 650 mg Q6H PRN PRN Administration Pain 1-10 Or Fever >100.7 Amlodipine Besylate 2.5 mg 04/19/25 10:00 04/22/25 08:02 Amlodipine 2.5 Mg Tablet PO 2.5 mg DAILY VIMAL Administration Protocol Atorvastatin Calcium 20 mg 04/18/25 22:00 04/21/25 22:27 Atorvastatin Calcium 20 Mg Tablet PO 20 mg QHS VIMAL Administration Baclofen 20 mg 04/19/25 00:00 04/22/25 05:13 Baclofen 10 Mg Tablet PO Not Given Q6 VIMAL Carvedilol 3.125 mg 04/19/25 08:00 04/22/25 08:02 Carvedilol 3.125 Mg Tablet PO 3.125 mg BIDCM VIMAL Administration Cholecalciferol 125 mcg 04/19/25 10:00 04/22/25 07:19 Cholecalciferol (Vit D3) 125 Mcg Capsule (5,000 Units) PO Not Given DAILY VIMAL Docusate Sodium 100 mg 04/18/25 22:00 04/22/25 07:18 Docusate Sodium 100 Mg Capsule PO Not Given BID VIMAL Gabapentin 800 mg 04/18/25 22:00 04/22/25 05:13 Gabapentin 800 Mg Tablet PO Not Given TID VIMAL Guaifenesin 1 tablet 04/19/25 07:31 Guaifenesin/D-Methorphan Tab.Sr.12h PO Q12H PRN cough/congest Hydromorphone HCl 0.5 - 1 mg 04/19/25 07:19 04/21/25 05:35 Hydromorphone 1 Mg/Ml Syringe IV 0.5 mg Q3H PRN PRN Administration Pain Score 6-10 Sodium Chloride 250 mls @ 15 mls/hr 04/18/25 21:41 IV .[id number] PRN Saline Flush Sodium Chloride 250 mls @ 15 mls/hr 04/18/25 21:41 IV .[id number] PRN Additional IVPB Infusion Pantoprazole Sodium 40 mg/ 100 mls @ 330 mls/hr 04/18/25 21:57 04/22/25 09:55 Sodium Chloride IV 330 mls/hr Q24 VIMAL Administration Lactated Ringer's 1,000 mls @ 15 mls/hr 04/20/25 13:00 04/21/25 15:37 IV 15 mls/hr .Q48H VIMAL Administration Lactated Ringer's 1,000 mls @ 15 mls/hr 04/22/25 11:15 IV .Q48H VIMAL Ipratropium [place] 2 spray 04/19/25 07:17 Ipratropium [place] 0.06% Nasal [place] NASAL TID PRN allergy symptoms Levothyroxine Sodium 50 mcg 04/19/25 06:00 04/22/25 05:14 Levothyroxine 50 Mcg Tablet PO Not Given DAILY@0600 VIMAL Nutritional Formula (Lactose Free) 120 ml 04/19/25 08:00 04/22/25 07:18 Ensure Clear 120 Ml Liquid PO Not Given TIDCM VIMAL Oxycodone HCl 10 mg 04/19/25 07:19 04/22/25 06:38 Oxycodone 5 Mg Tablet PO 10 mg Q4H PRN PRN Administration Pain Score 4-10 Polyethylene Glycol 17 gm 04/18/25 22:00 04/22/25 07:19 Polyethylene Glycol 3350 17 Gm Packet PO Not Given BID VIMAL Potassium Chloride 20 meq 04/21/25 17:00 04/22/25 07:18 Potassium Chloride Oral Soln 20 Meq/15 Ml Udc PO Not Given BIDCM VIMAL Sodium Chloride 10 - 40 ml 04/18/25 21:41 04/22/25 09:54 0.9% Saline Lock 10 Ml Syringe IV 10 ml UD PRN Administration SALINE FLUSH [facility] Medical History Hypertensive emergency NSTEMI, initial episode of care Emphysema of lung Smoking greater than 30 pack years New onset atrial fibrillation [place] (dyspnea on exertion) Atherosclerotic heart disease of [place] coronary artery without angina pectoris Cardiac murmur Elevated troponin Mitral stenosis Chronic low back pain Diastolic hypertension Chest pain Nicotine dependence, cigarettes, uncomplicated Elevated troponin Depression On home oxygen therapy Atrial fibrillation PAF (paroxysmal atrial fibrillation) Atrial fibrillation Hypothyroidism Smoker Coronary artery disease TIA (transient ischemic attack) Influenza A Nonsustained paroxysmal supraventricular tachycardia Multiple sclerosis Nonobstructive atherosclerosis of coronary artery Peripheral vascular occlusive disease Essential (primary) hypertension Bilateral carotid artery stenosis History of transient ischemic attack (TIA) Fatty liver Thrombocytopenia GERD (gastroesophageal reflux disease) Psoriatic arthritis Psoriasis Osteoporosis Osteoarthritis Goiter Multiple sclerosis HLD (hyperlipidemia) Angina pectoris Chronic pain syndrome Home Medications ?Medication ?Instructions ?Recorded ?Last Taken ?Type gabapentin 800 mg tablet 800 mg PO TID MS 07/16/18 History baclofen 20 mg tablet 20 mg PO Q6H MS 08/11/2112/13 History levothyroxine 50 mcg tablet 50 mcg PO DAILY thyroid 04/21/25 History oxycodone 10 mg tablet 10 mg PO Q6H PRN pain 12/01/23 History dextromethorphan-guaifenesin ER 60 1 tab PO Q12H PRN c ough/congest 02/19/24 03/19/25 History mg-1,200 mg tab,extend release,12hr (Mucinex DM) famotidine 40 mg tablet 40 mg PO QDAY PRN indigestio n 11/24/24 03/19/25 History lisinopril 10 mg tablet 10 mg PO BID blood pressure 11/24/24 03/19/25 History aspirin 81 mg tablet,delayed 81 mg PO BREAKFAST heart health 12/11/24 03/19/25 Rx release #30 tabs amlodipine 5 mg tablet (Norvasc) 2.5 mg (1/2 x 5 mg) P O QDAY bp #90 01/13/25 03/19/25 Rx tabs carvedilol 3.125 mg tablet 3.125 mg PO BIDCM heart #18 0 tabs 03/03/25 04/21/25 Rx apixaban 5 mg tablet (Eliquis) 5 mg PO Q12H anticoagul ation #180 03/09/25 03/19/25 Rx tabs cholecalciferol (vitamin D3) 125 125 mcg PO DAILY supp lement 04/18/25 Unknown History mcg (5,000 unit) capsule docusate sodium 100 mg capsule 100 mg PO BID stool sof tener 7 04/18/25 Unknown Rx (Colace) days #14 caps doxepin 10 mg/mL oral concentrate 5 - 10 mg PO QHS Unknown History ipratropium bromide 42 mcg (0.06 2 spray intranasal TI D PRN allergy 04/18/25 Unknown History %) nasal spray symptoms naloxegol 25 mg tablet (Movantik) 25 mg PO DAILY 30 da ys #30 tabs 04/18/25 Unknown Rx rosuvastatin 10 mg tablet 10 mg PO QHS hld 04/18/25 Un known History Allergy/AdvReac Type Severity Reaction Status Date / Time colestipol (From Colestid) Allergy Mild unknown Verified 04/18/25 18:19 pregabalin (From Lyrica) Allergy Mild Hives Verified 04/18/25 18:19 amitriptyline Allergy Rash Verified 04/18/25 18:19 temazepam (From Restoril) AdvReac Mild Nausea/Vom/ Verified 04/18/25 18:19 Diarrhea Antihistamines - Alkylamine AdvReac Nausea/Vom/ Verified 04/18/25 18:19 Diarrhea Antihistamines - Ethanolamine AdvReac Nausea/Vom/ Verified 04/18/25 18:19 Diarrhea Antihistamines - AdvReac Nausea/Vom/ Verified 04/18/25 18:19 Ethylenediamine Diarrhea Antihistamines - Piperazine AdvReac Nausea/Vom/ Verified 04/18/25 18:19 Diarrhea Antihistamines - Piperidine AdvReac Nausea/Vom/ Verified 04/18/25 18:19 Diarrhea aspirin AdvReac I'M ON Verified 04/18/25 18:19 BLOOD THINNERS codeine AdvReac Nausea Verified 04/18/25 18:19 Corticosteroids AdvReac Upset Verified 04/18/25 18:19 (Glucocorticoids) Stomach morphine AdvReac Nausea Verified 04/18/25 18:19 [id number] Reductase AdvReac Nausea Verified 04/18/25 18:19 Inhibitor (Beeqxgp-Pjb-Azm Reductase Inhibitor) Family History Mother Cancer CAD (coronary artery disease) Brain tumor Grandfather CVA (cerebral vascular accident) Father CAD (coronary artery disease) Ruptured abdominal aortic aneurysm (AAA) Sister Brain aneurysm Surgical History History of coronary artery stent placement History of appendectomy History of cholecystectomy History of angioplasty of peripheral vessel (07/11/19) Stenosis of left subclavian artery History of left heart catheterization (01/25/15) S/P coil embolization of cerebral aneurysm History of angioplasty of peripheral vessel History of right-sided carotid endarterectomy History of left-sided carotid endarterectomy History of partial thyroidectomy (11/30/05) History of hemorrhoidectomy History of hysterectomy History of section Brain aneurysm Fracture of right lower leg S/P insertion of iliac artery stent History of left breast biopsy H/O hemorrhoidectomy S/P hysterectomy H/O: S/P thyroidectomy Social History household members: none housing: apartment Smoking Status: Light Smoker (<10/day) alcohol intake: never caffeine: Yes Type: coffee and tea Review of Systems (Anesthesia) ROS Narrative System reviewed and no additional complaints, except as documented. Physical Exam Const alert, oriented x3 and average body habitus Resp normal respiratory effort, normal air movement and clear to auscultation bilaterally Cardio regular rate, regular rhythm, no murmurs and diaphoretic 04/22/25 1117 <Electronically signed by Aime Covarrubias MD> Date _ Aime Covarrubias MD Cosigner Signature: Date CC: ~ Signed [facility] Work Phone: 1(114) 633-825506-04-2025 Progress note Author Roman Bowermarcelle [facility] Note Date/Time April 22, 2025 8:32a m [facility] Medical Records Department [address] [place] [address] Progress Note - Hospitalist 04/22/25 0713 MR#: [id number] Acct: [id number] Name: ANGÉLICA YO Rep #:[id number] : 1955 69 From: Roman Mckeon MD PCP: Dr. Daron Benton MD Status:ADM IN Location: [place] [address]-1 Reason for Visit Reason for Visit: Diagnoses Anemia, unspecified (04/18/25) Subjective Subjective Patient had NG tube placed in the Endo unit by Dr. Gonzalez to start patient prep for her colonoscopy Objective Data Objective Data Vital Signs: Vital Signs Temp Pulse Resp BP Pulse Ox O2 Del Method 97.6 F L 55 L 18 150/78 H 99 Room Air 04/22/25 02:11 04/22/25 02:11 04/22/25 02:11 04/22/25 02:11 04/22/25 02:11 04/22/25 02:11 Oxygen Delivery Method Room Air Weight: 45.7 kg Body Mass Index (BMI) 16.7 Intake & Output: Intake and Output for Last 24 Hours 04/20/25 04/21/25 04/22/25 23:59 23:59 23:59 Intake Total 175 / 175 1450 / 1450 3500 / 3500 Output Total 400 / 400 1600 / 1600 Balance -225 / -225 -150 / -150 3500 / 3500 Lab / Micro Data 04/22/25 05:15 04/22/25 05:15 Labs: Laboratory Results - last 24 hr 04/22/25 05:15: WBC 7.1, RBC 3.51 L, Hgb 9.4 L, Hct 29.2 L, MCV 83.2, MCH 26.8 L, MCHC 32.2, RDW Std Deviation 52.6 H, RDW Coeff of David 17.5 H, Plt Count 152, MPV 9.7, Sodium 137, Potassium 3.8, Chloride 107, Carbon Dioxide 18.8 L, Anion Gap 12, BUN 8, Creatinine 1.08, Estim Creat Clear Calc 34.97 L, Est GFR (MDRD) Non-Af 55 L, BUN/Creatinine Ratio 7.0 L, Glucose 89, Calcium 8.3 Micro: Microbiology 04/21/25 10:00 Stool Stool Occult Blood (CARMEN) - Final Occult Blood Positive Physical Exam Narrative GENERAL: cooperative HEENT: Atraumatic; normocephalic EYES; Anicteric, pallor of the conjunctiva NECK; supple, normal thyroid, RESPIRATORY: Diminished to auscultation CARDIOVASCULAR: Regular S1 S2, GI: soft, normoactive bowel sounds, : No Renal angle tenderness; EXTREMITIES: No edema, no clubbing, MUSCULOSKELETAL: no muscle wasting NEURO: Awake; no lateralizing signs. SKIN: No Rash PSYCH; Flat affect Assessment & Plan Assessment/Plan (1) Symptomatic anemia: PLAN: Plan Patient is a 68-year-old lady presented with fatigue found to be anemic with hemoglobin of 7.3. 1. Symptomatic anemia ? Suspected to be secondary to chronic GI bleed exacerbated by the use of systemic anticoagulant?apixaban. Patient is on apixaban for systemic anticoagulation for A-fib. Patient hemoglobin on admission was 7.3. Patient hemoglobin did drop to 6.3 and order was given for patient to be transfused 1 unit PRBC. 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 Subsequent monitoring with daily H&Hordered consult placed to GI ? 04/20/2025; patient hemoglobin up to 10.6. Patient was kept n.p.o. pending GI evaluation ? 04/21/2025; patient underwent EGD the day prior findings and recommendations as below ?Impressions : - Normal esophagus. - No gross lesions in the entire stomach. 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 Treated with a heater probe. - No specimens collected. Recommendations : - Return patient to hospital [facility] for ongoing care. - Full liquid diet. - Continue present medications. -Plan is for patient to complete her evaluation with a colonoscopy. Patient is however refusing to drink the prep she also refused NG. Hgb down to 9.4 2. Paroxysmal A-fib ? Rate controlled on systemic anticoagulation with apixaban held given her presentation 3.. Hypertension - Blood pressure controlled, home medications continued with dose adjustment as needed 4. Multiple sclerosis ? Per history patient is on baclofen for muscle relaxation 5. Hypothyroidism ? Patient is on levothyroxine did continue with home dose 6. Peripheral arterial disease ? With history of bilateral carotid artery stenosis, peripheral vascular occlusive disease. Patient was on systemic anticoagulation with apixaban held given about reasons 7. Dyslipidemia ?Patient is on statin therapy, continued at home dose 8. DVT prophylaxis ? Patient is on apixaban held 9. Chronic pain syndrome ? Restarted patient home pain regimen Charges/Coding Visit Charges Inpatient E&M: 89706 Subs Hosp L2 04/22/25 0832 <Electronically signed by Roman Mckeon MD> Cosigner Signature (if applicable): CC: ~ Signed [facility] Work Phone: 1(685) 952-816306-03-2025 Consult note Author Zaki Levin [facility] Note Date/Time April 21, 2025 5:01p m [facility] Medical Records Department [address] [place] [address] Anesthesia Postop Eval II 04/21/25 1700 MR#: [id number] Acct: [id number] Name: ANGÉLICA YO Rep #:[id number] 2 : 1955 69 From: Zaki Nicholas RNA PCP: Dr. Daron Benton MD Status:ADM IN Y Race: C Location: MS3 MS305 -1 Anesthesia Postop Eval I Sum Postop Eval Completion status Anesthesia document: Postop Eval 1 completed: Yes Anesthesia Postop Eval I Summary Anesthesia Postop Eval I Summary: Anesthesia Postop Eval I: Assessment Summary Airway patent Yes 04/21/25 16:57 CASINO CAGE MANAGER.MDOT Spontaneous unlabored Yes 04/21/25 16:57 CASINO CAGE MANAGER.MDOT respirations Mental status Awake,Calm 04/21/25 16:57 CASINO CAGE MANAGER.MDOT nausea No 04/21/25 16:57 CASINO CAGE MANAGER.MDOT Vomiting No 04/21/25 16:57 CASINO CAGE MANAGER.MDOT Anesthesia Postop Eval I: Fluid Summary Crystalloid volume administer 100 04/21/25 16:57 CASINO CAGE MANAGER.MDOT (ml) Colloids volume administered ( ml) Blood Product volume administered (ml) Total IV fluid infused 100 04/21/25 16:57 CASINO CAGE MANAGER.MDOT Anesthesia Postop Eval I: Summary Notes Anesthesia Complication No 04/21/25 16:57 CASINO CAGE MANAGER.MDISAIAH Anesthesia Complication Comment: Post-operative progress note Anesthesia: Postop Eval II Evaluation Mental status: Awake and Calm Pain Level: 0 nausea: No Vomiting: No Complications Anesthesia Complication: No 04/21/25 1701 <Electronically signed by Zaki Levin CRNA> Date _ Zaki Levin CRNA Cosigner Signature: Date CC: ~ Signed [facility] Work Phone: [phone]) 417-682906-03-2025 Consult note Author Zaki Levin [facility] Note Date/Time April 21, 2025 4:57p [facility] Records Department [address] [facility] [address] Anesthesia Postop Eval I 04/21/25 1656 MR#: [id number] Acct: [id number] Name: ANGÉLICA YO Rep #:[id number] : 1955 69 From: Zaki JOINER PCP: Dr. Daron Benton MD Status:ADM IN Y Race: C Location: MS3 MS305 -1 Anesthesia: Postop Eval I Current Vital Signs Temperature: 97 F Pulse Rate: 77 Blood Pressure: 132/70 Respiratory Rate: 16 Pulse Ox: 100 Oxygen Delivery Method: Room Air Assessment Airway patent: Yes Spontaneous unlabored respirations: Yes Mental status: Awake and Calm nausea: No Vomiting: No Anesthesia Complication: No Fluid Hydration Crystalloid volume administer (ml): 100 Total IV fluid infused: 100 Progress Note Anesthesia document: Postop Eval 1 completed: Yes 04/21/251656 <Electronically signed by Zaki Levin CRNA> Date _ Zaki Levin CRNA Cosigner Signature: Date CC: ~ Signed [facility] Work Phone: [phone]) 872-748206-03-2025 Progress note Author Kevin Friend [facility] Note Date/Time April 21, 2025 4:16p m [facility] Medical Records Department [address] [place] [address] Progress Note 04/21/25 161 MR#: [id number] Acct: [id number] Name: ANGÉLICA YO Rep #:[id number] : 1955 69 From: Kevin Gonzalez DO PCP: Dr. Daron Benton MD Status:ADM IN Location: [place] [address] Progress Note Patient is n.p.o. for EGD today. All questions concerns answered. Physical Exam Const alert, oriented x3, no apparent distress and healthy appearing General Appearance: cooperative GI normal to inspection, nondistended, normoactive bowel sounds, soft to palpation,non-tender and non-distended Percussion: normal to percussion Rectal Exam: deferred Assessment & Plan Assessment/Plan (1) Symptomatic anemia: PLAN: Plan Patient is a 69-year-old lady presented with fatigue found to be anemic with hemoglobin of 7.3. She is on anticoagulation with Eliquis for atrial fibrillation. Hemoglobin is up after blood transfusion. She was explained alternatives, risk and benefits include not withstanding bleeding, infection, sepsis, perforation, need for more surgery . She will have an ASA of 3. 04/21/2025.-Patient underwent an upper endoscopy yesterday and no etiology of GI bleed was seen. She was supposed to get prep for a colonoscopy last night. However she cannot tolerate NG tube placement and could not tolerate the prep. We will place NG tube and order endoscopy today. And then she can take the tubeafter her prep is complete. Visit Charges Inpatient E&M: 66607 Subs Hosp L3 04/21/25 1616 <Electronically signed by Kevin Gonzalez DO> Kevin Gonzalez DO Cosigner Signature (if applicable): CC: ~ Signed [facility] Work Phone: 1(110) 731-883106-03-2025 Consult note Author Storm Gómez [facility] Note Date/Time April 21, 2025 3:54p [facility] Records Department [address] [place] [address] Pre-Anesthesia Evaluation 04/21/25 1549 MR#: [id number] Acct: [id number] Name: ANGÉLICA YO Rep #:[id number] : 1955 69 From: Storm Gómez MD PCP: Dr. Daron Benton MD Status:ADM IN Y Race: C Location: [place] [address] ASA Classification* ASA Classification ASA Classification: 3 Assessment & Plan Anesthesia* Anesthesia Assessment Anesthesia Assessment: Discussed sedation and/or anesthesia options, risks, benefits, and alternatives with patient/parents/legal guardian/POA. Questions invited. The patient/parents/legal guardian/POA seems to understand and agrees to proceedwith anesthesia plan. Reviewed the physical assessment, medical history, allergy history and patient home medications list prior to surgery/procedure/anesthetic and documented any changes. Performed airway and anesthesia risk assessments. Anesthesia Type Anesthesia Type: MAC History Source History Obtained from:: Patient and Chart Anesthesia Focused Assessment* Temperature: 97.9 F Pulse Rate: 50 Blood Pressure: 137/68 Respiratory Rate: 16 Pulse Ox: 100 Oxygen Delivery Method: Room Air Airway Assessment Mouth opens: >3 cm Mallampati Score: II Teeth Condition: Dentures (Patient has upper and lower dentures. They are out.) Neck Range of motion (ROM): Full ROM Focused Labs Anesthesia Preop lab: CBC WBC 5.3 K/mm3 (4.4-11.0) 04/21/25 04:36 04/21/25 RBC 3.81 M/mm3 (4.2-5.4) L 04/21/25 04:36 04/21/25 Hgb 10.1 g/dL (12.0-15.0) L 04/21/25 04:36 5 Hct 31.7 % (37-47) L 04/21/25 04:36 04/21/25 Plt Count 174 K/mm3 (150-450) 04/21/25 04:36 04/21/25 CHEMISTRY Potassium 3.1 mmol/L (3.3-5.1) L 04/21/25 04:36 04/21/25 Sodium 141 mmol/L (133-145) 04/21/25 04:36 04/21/25 Magnesium 2.2 mg/dL (1.5-2.2) 04/20/25 05:40 04/20/25 Phosphorus 3.5 mg/dL (2.7-4.5) 04/20/25 05:40 04/20/25 BUN 12 mg/dL (4-19) 04/21/25 04:36 04/21/25 Creatinine 1.21 mg/dL (0.70-1.20) H 04/21/25 04:36 Glucose 85 mg/dL (70-99) 04/21/25 04:36 04/21/25 POC Glucose 109 mg/dL (74-106) H 04/21/25 01:15 04/21/25 TSH 5.620 uIU/mL (0.300-4.200) H 04/20/25 05:40 COAG PT 12.9 SECONDS (11.7-14.9) 01/11/25 00:18 Pre-Assessment Diagnosis/Proposed Procedure Planned Operative Procedure(s): EGD 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 - test clerk: 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 - test clerk Hx Hospitalization No 04/15/21 11:49 Any Problems With Anesthesia No 02/24/24 23:50 Cholinesterase deficiency No 02/24/24 23:50 You/Your Family Experience No 02/24/24 23:50 fever (hyperthermia) with Relationship Recent Exposure to Contagious No 02/25/24 11:12 Disease Does patient have nerve No 02/24/24 23:50 stimulator Patient instructed to have device shut off --Does patient have Pacemaker No 04/21/25 15:30 or ICD? When Was Last Pacemaker Check QUESTION #4 FULL TEXT: You/Your Family Experience fever (hyperthermia) with Anesthesia Last Oral Intake Last Oral intake: Last Oral Intake NPO since 00:01 04/21/25 15:30 Meds taken in AM with sips of Yes 04/21/25 15:30 water? Meds patient instructed to see mar 04/21/25 15:30 take am of surgery PONV PONV - test clerk: PONV - test clerk Female HX of Motion Sickness HX of N/V After Surgery Non-Smoker Duration of Surgery greater than 60 minutes Number of Risk Factors PONV Score Height & Weight Height & Weight: Anesthesia: Height & Weight Height 5 ft 5 in 04/21/25 15:30 Weight: 45.7 kg 04/21/25 15:30 Body Mass Index (BMI) 16.7 04/21/25 15:30 Respiratory Assessment Respiratory Assessment - test clerk: Respiratory Tract Infection Hx - test clerk Hx Respiratory Tract Infection No 02/24/24 23:50 STOP Sleep Apnea STOP Sleep Apnea - test clerk: STOP Sleep Apnea - test clerk Hx Hypertension Yes 04/18/25 21:53 Hx Sleep Apnea No 04/18/25 21:53 CPAP BIPAP Do you snore loudly (louder No 04/18/25 21:53 than talking or can be heard Do you often feel tired/ No 04/18/25 21:53 fatigued/ sleepy during daytime? Has anyone observed you stop No 04/18/25 21:53 breathing during sleep? STOP Results Negative 04/20/25 13:46 QUESTION #5 FULL TEXT : Do you snore loudly (louder than talking or can be heard through closed doors)? 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 Specify any problems Hx of Preganancy in last 3 No 04/18/25 21:53 Months Nurse Filling Out Transfusion DREDICK 04/18/25 21:53 & Questions: Date: 04/18/25 04/18/25 21:53 Time: 21:54 04/18/25 21:53 Patient unable to answer at this time (ie. 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 Hx Now Gestational Age (in weeks): EDC: Hx Hx Para Hx Section SAB No 02/24/24 23:50 Active Medications Active Medications: Current Medications Generic Name Dose Route Start Last Admin Trade Name Freq PRN Reason Stop Dose Admin Acetaminophen 650 mg 04/19/25 07:19 04/21/25 10:19 Acetaminophen 325 Mg Tablet PO 650 mg Q6H PRN PRN Administration Pain 1-10 Or Fever >100.7 Amlodipine Besylate 2.5 mg 04/19/25 10:00 04/21/25 09:01 Amlodipine 2.5 Mg Tablet PO 2.5 mg DAILY VIMAL Administration Protocol Atorvastatin Calcium 20 mg 04/18/25 22:00 04/20/25 21:53 Atorvastatin Calcium 20 Mg Tablet PO 20 mg QHS VIMAL Administration Baclofen 20 mg 04/19/25 00:00 04/21/25 10:21 Baclofen 10 Mg Tablet PO Not Given Q6 VIMAL Carvedilol 3.125 mg 04/19/25 08:00 04/21/25 09:01 Carvedilol 3.125 Mg Tablet PO 3.125 mg BIDCM VIMAL Administration Cholecalciferol 125 mcg 04/19/25 10:00 04/21/25 09:02 Cholecalciferol (Vit D3) 125 Mcg Capsule (5,000 Units) PO 125 mcg DAILY VIMAL Administration Docusate Sodium 100 mg 04/18/25 22:00 04/21/25 09:02 Docusate Sodium 100 Mg Capsule PO 100 mg BID VIMAL Administration Gabapentin 800 mg 04/18/25 22:00 04/21/25 05:56 Gabapentin 800 Mg Tablet PO Not Given TID VIMAL Guaifenesin 1 tablet 04/19/25 07:31 Guaifenesin/D-Methorphan Tab.Sr.12h PO Q12H PRN cough/congest Hydromorphone HCl 0.5 - 1 mg 04/19/25 07:19 04/21/25 05:35 Hydromorphone 1 Mg/Ml Syringe IV 0.5 mg Q3H PRN PRN Administration Pain Score 6-10 Sodium Chloride 250 mls @ 15 mls/hr 04/18/25 21:41 IV .[id number] PRN Saline Flush Sodium Chloride 250 mls @ 15 mls/hr 04/18/25 21:41 IV .[id number] PRN Additional IVPB Infusion Pantoprazole Sodium 40 mg/ 100 mls @ 330 mls/hr 04/18/25 21:57 04/21/25 10:40 Sodium Chloride IV Infused Q24 VIMAL Infusion Lactated Ringer's 1,000 mls @ 15 mls/hr 04/20/25 13:00 04/21/25 15:37 IV 15 mls/hr .Q48H VIMAL Administration Ipratropium [place] 2 spray 04/19/25 07:17 Ipratropium [place] 0.06% Nasal [place] NASAL TID PRN allergy symptoms Levothyroxine Sodium 50 mcg 04/19/25 06:00 04/21/25 05:56 Levothyroxine 50 Mcg Tablet PO Not Given DAILY@0600 [facility] Nutritional Formula (Lactose Free) 120 ml 04/19/25 08:00 04/21/25 10:20 Ensure Clear 120 Ml Liquid PO Not Given TIDCM [facility] Oxycodone HCl 10 mg 04/19/25 07:19 04/21/25 10:23 Oxycodone 5 Mg Tablet PO 10 mg Q4H PRN PRN Administration Pain Score 4-10 Polyethylene Glycol 17 gm 04/18/25 22:00 04/21/25 09:02 Polyethylene Glycol 3350 17 Gm Packet PO Not Given BID VIMAL Potassium Chloride 20 meq 04/21/25 17:00 Potassium Chloride Oral Soln 20 Meq/15 Ml Udc PO BIDCM VIMAL Sodium Chloride 10 - 40 ml 04/18/25 21:41 04/19/25 22:46 0.9% Saline Lock 10 Ml Syringe IV 10 ml UD PRN Administration SALINE FLUSH PFSH Medical History Hypertensive emergency NSTEMI, initial episode of care Emphysema of lung Smoking greater than 30 pack years New onset atrial fibrillation T[place]EDO (dyspnea on exertion) Atherosclerotic heart disease of [place] coronary artery without angina pectoris Cardiac murmur Elevated troponin Mitral stenosis Chronic low back pain Diastolic hypertension Chest pain Nicotine dependence, cigarettes, uncomplicated Elevated troponin Depression On home oxygen therapy Atrial fibrillation PAF (paroxysmal atrial fibrillation) Atrial fibrillation Hypothyroidism Smoker Coronary artery disease TIA (transient ischemic attack) Influenza A Nonsustained paroxysmal supraventricular tachycardia Multiple sclerosis Nonobstructive atherosclerosis of coronary artery Peripheral vascular occlusive disease Essential (primary) hypertension Bilateral carotid artery stenosis History of transient ischemic attack (TIA) Fatty liver Thrombocytopenia GERD (gastroesophageal reflux disease) Psoriatic arthritis Psoriasis Osteoporosis Osteoarthritis Goiter Multiple sclerosis HLD (hyperlipidemia) Angina pectoris Chronic pain syndrome Home Medications ?Medication ?Instructions ?Recorded ?Last Taken ?Type gabapentin 800 mg tablet 800 mg PO TID MS 07/16/18 History baclofen 20 mg tablet 20 mg PO Q6H MS 08/11/2112/13 History levothyroxine 50 mcg tablet 50 mcg PO DAILY thyroid 04/21/25 History oxycodone 10 mg tablet 10 mg PO Q6H PRN pain 12/01/23 History dextromethorphan-guaifenesin ER 60 1 tab PO Q12H PRN c ough/congest 02/19/24 03/19/25 History mg-1,200 mg tab,extend release,12hr (Mucinex DM) famotidine 40 mg tablet 40 mg PO QDAY PRN indigestio n 11/24/24 03/19/25 History lisinopril 10 mg tablet 10 mg PO BID blood pressure 11/24/24 03/19/25 History aspirin 81 mg tablet,delayed 81 mg PO BREAKFAST [facility] 12/11/24 03/19/25 Rx release #30 tabs amlodipine 5 mg tablet (Norvasc) 2.5 mg (1/2 x 5 mg) P O QDAY bp #90 01/13/25 03/19/25 Rx tabs carvedilol 3.125 mg tablet 3.125 mg PO BIDCM heart #18 0 tabs 03/03/25 04/21/25 Rx apixaban 5 mg tablet (Eliquis) 5 mg PO Q12H anticoagul ation #180 03/09/25 03/19/25 Rx tabs cholecalciferol (vitamin D3) 125 125 mcg PO DAILY supp lement 04/18/25 Unknown History mcg (5,000 unit) capsule docusate sodium 100 mg capsule 100 mg PO BID stool sof tener 7 04/18/25 Unknown Rx (Colace) days #14 caps doxepin 10 mg/mL oral concentrate 5 - 10 mg PO QHS Unknown History ipratropium bromide 42 mcg (0.06 2 spray intranasal TI D PRN allergy 04/18/25 Unknown History %) nasal spray symptoms naloxegol 25 mg tablet (Movantik) 25 mg PO DAILY 30 da ys #30 tabs 04/18/25 Unknown Rx rosuvastatin 10 mg tablet 10 mg PO QHS hld 04/18/25 Un known History Allergy/AdvReac Type Severity Reaction Status Date / Time colestipol (From Colestid) Allergy Mild unknown Verified 04/18/25 18:19 pregabalin (From Lyrica) Allergy Mild Hives Verified 04/18/25 18:19 amitriptyline Allergy Rash Verified 04/18/25 18:19 temazepam (From Restoril) AdvReac Mild Nausea/Vom/ Verified 04/18/25 18:19 Diarrhea Antihistamines - Alkylamine AdvReac Nausea/Vom/ Verified 04/18/25 18:19 Diarrhea Antihistamines - Ethanolamine AdvReac Nausea/Vom/ Verified 04/18/25 18:19 Diarrhea Antihistamines - AdvReac Nausea/Vom/ Verified 04/18/25 18:19 Ethylenediamine Diarrhea Antihistamines - Piperazine AdvReac Nausea/Vom/ Verified 04/18/25 18:19 Diarrhea Antihistamines - Piperidine AdvReac Nausea/Vom/ Verified 04/18/25 18:19 Diarrhea aspirin AdvReac I'M ON Verified 04/18/25 18:19 BLOOD THINNERS codeine AdvReac Nausea Verified 04/18/25 18:19 Corticosteroids AdvReac Upset Verified 04/18/25 18:19 (Glucocorticoids) Stomach morphine AdvReac Nausea Verified 04/18/25 18:19 Wjfbqhv-KIB-EmJ Reductase AdvReac Nausea Verified 04/18/25 18:19 Inhibitor (Kuajdqv-Uwg-Mnj Reductase Inhibitor) Family History Mother Cancer CAD (coronary artery disease) Brain tumor Grandfather CVA (cerebral vascular accident) Father CAD (coronary artery disease) Ruptured abdominal aortic aneurysm (AAA) Sister Brain aneurysm Surgical History History of coronary artery stent placement History of appendectomy History of cholecystectomy History of angioplasty of peripheral vessel (07/11/19) Stenosis of left subclavian artery History of left heart catheterization (01/25/15) S/P coil embolization of cerebral aneurysm History of angioplasty of peripheral vessel History of right-sided carotid endarterectomy History of left-sided carotid endarterectomy History of partial thyroidectomy (11/30/05) History of hemorrhoidectomy History of hysterectomy History of section Brain aneurysm Fracture of right lower leg S/P insertion of iliac artery stent History of left breast biopsy H/O hemorrhoidectomy S/P hysterectomy H/O: S/P thyroidectomy Social History household members: none housing: apartment Smoking Status: Light Smoker (<10/day) alcohol intake: never caffeine: Yes Type: coffee and tea Review of Systems (Anesthesia) ROS Narrative System reviewed and no additional complaints, except as documented. 04/21/25 7605 <Electronically signed by Storm steiner MD> Date _ Storm Gómez MD Cosigner Signature: Date CC: ~ Signed [facility] Work Phone: 1(642) 296-455706-03-2025 Procedure [facility] 04-21-2025 Procedure [facility]06-03-2025 Progress note Author Roman Mckeon [facility] Note Date/Time April 21, 2025 8:22a [facility] Medical Records Department [address] [place] [address] Progress Note - Hospitalist 04/21/25 0727 MR#: [id number] Acct: [id number] Name: ANGÉLICA YO Rep #:[id number] : 1955 69 From: Roman Mckeon MD PCP: Dr. Daron Benton MD Status:ADM IN Location: [place] [address] Reason for Visit Reason for Visit: Diagnoses Anemia, unspecified (04/18/25) Subjective Subjective Patient underwent EGD by Dr. Harkins results as below Objective Data Objective Data Vital Signs: Vital Signs Temp Pulse Resp BP Pulse Ox O2 Del Method 97.6 F L 60 18 160/79 H 100 Room Air 04/21/25 05:30 04/21/25 05:30 04/21/25 05:30 04/21/25 05:30 04/21/25 05:30 04/21/25 05:30 Oxygen Delivery Method Room Air Weight: 45.7 kg Body Mass Index (BMI) 16.7 Intake & Output: Intake and Output for Last 24 Hours 04/19/25 04/20/25 04/21/25 23:59 23:59 23:59 Intake Total 2850 / 2850 175 / 175 1000 / 1000 Output Total 650 / 650 400 / 400 800 / 800 Balance 2200 / 2200 -225 / -225 200 / 200 Lab / Micro Data 04/21/25 04:36 04/21/25 04:36 Labs: Laboratory Results - last 24 hr 04/21/25 01:15: POC Glucose 109 H 04/21/25 04:36: WBC 5.3, RBC 3.81 L, Hgb 10.1 L, Hct 31.7 L, MCV 83.2, MCH 26.5 L, MCHC 31.9 L, RDW Std Deviation 51.9 H, RDW Coeff of David 17.2 H, Plt Count 174, MPV 9.4, Sodium 141, Potassium 3.1 L, Chloride 107, Carbon Dioxide 24.7, Anion Gap 9, BUN 12, Creatinine 1.21 H, Estim Creat Clear Calc 31.21 L, Est GFR (MDRD) Non-Af 48 L, BUN/Creatinine Ratio 9.9 L, Glucose 85, Calcium 8.7 Radiography Diagnostic Testing: Radiology Impression Brain CT 04/21/25 00:54 IMPRESSION: No CT evidence for acute brain abnormality. Reading Location: [place] [address] Physical Exam Narrative GENERAL: cooperative HEENT: Atraumatic; normocephalic EYES; Anicteric, pallor of the conjunctiva NECK; supple, normal thyroid, RESPIRATORY: Diminished to auscultation CARDIOVASCULAR: Regular S1 S2, GI: soft, normoactive bowel sounds, : No Renal angle tenderness; EXTREMITIES: No edema, no clubbing, MUSCULOSKELETAL: no muscle wasting NEURO: Awake; no lateralizing signs. SKIN: No Rash PSYCH; Flat affect Assessment & Plan Assessment/Plan (1) Symptomatic anemia: PLAN: Plan Patient is a 68-year-old lady presented with fatigue found to be anemic with hemoglobin of 7.3. 1. Symptomatic anemia ? Suspected to be secondary to chronic GI bleed exacerbated by the use of systemic anticoagulant?apixaban. Patient is on apixaban for systemic anticoagulation for A-fib. Patient hemoglobin on admission was 7.3. Patient hemoglobin did drop to 6.3 and order was given for patient to be transfused 1 unit PRBC. 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 Subsequent monitoring with daily H&Hordered consult placed to GI ? 04/20/2025; patient hemoglobin up to 10.6. Patient was kept n.p.o. pending GI evaluation ? 04/21/2025; patient underwent EGD the day prior findings and recommendations as below ?Impressions : - Normal esophagus. - No gross lesions in the entire stomach. 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 Treated with a heater probe. - No specimens collected. Recommendations : - Return patient to [facility] for ongoing care. - Full liquid diet. - Continue present medications. -Plan is for patient to complete her evaluation with a colonoscopy. Patient is however refusing to drink the prep she also refused NG 2. Paroxysmal A-fib ? Rate controlled on systemic anticoagulation with apixaban held given her presentation 3.. Hypertension - Blood pressure controlled, home medications continued with dose adjustment as needed 4. Multiple sclerosis ? Per history patient is on baclofen for muscle relaxation 5. Hypothyroidism ? Patient is on levothyroxine did continue with home dose 6. Peripheral arterial disease ? With history of bilateral carotid artery stenosis, peripheral vascular occlusive disease. Patient was on systemic anticoagulation with apixaban held given about reasons 7. Dyslipidemia ?Patient is on statin therapy, continued at home dose 8. DVT prophylaxis ? Patient is on apixaban held 9. Chronic pain syndrome ? Restarted patient home pain regimen Charges/Coding Visit Charges Inpatient E&M: 51453 Subs Hosp L2 04/21/25 0822 <Electronically signed by Roman Mckeon MD> Cosigner Signature (if applicable): CC: ~ Signed [facility] Work Phone: 1(633) 118-448306-03-2025 Progress note Author Sommer Resendiz [facility] Note Date/Time April 21, 2025 1:33a [facility] Medical Records Department [address] [place] [address] Progress Note - Hospitalist 04/21/2540 MR#: [id number] Acct: [id number] Name: ANGÉLICA YO Rep #:[id number] : 1955 69 From: Sommer Resendiz MD PCP: Dr. Daron Benton MD Status:ADM IN Location: [place] [id number] Hospitalist Note Patient with unwitnessed mechanical fall, notes she bumped her head. Denies any other injury, nausea, emesis, marked headache. She is on NOAC. CT head requestedto be cautious. 04/21/25 0042 <Electronically signed by Sommer Resendiz MD> Cosigner Signature (if applicable): CC: ~ Signed ADDENDUM by Dr. Sommer Resendiz MD on 04/21/[address] brain with no acute findings. 04/21/25 0133<Electronically signed by Sommer Resendiz MD> Cosigner Signature (if applicable): cc: ~* Signed [facility] Work Phone: 1(278) 566-442806-03-2025 Radiology Diagnostic study [facility]06-02-2025 Consult note Author Aime Covarrubias [facility] Note Date/Time April 20, 2025 4:08p m [facility] Medical Records Department [address] [place] [address] Anesthesia Postop Eval II 04/20/25 1608 MR#: [id number] Acct: [id number] Name: ANGÉLICA YO Rep #:[id number] : 1955 69 From: Aime Covarrubias MD PCP: Dr. Daron Benton MD Status:ADM IN Y Race: C Location: [address] Anesthesia Postop Eval I Sum Postop Eval Completion status Anesthesia document: Postop Eval 1 completed: Yes Anesthesia Postop Eval I Summary Anesthesia Postop Eval I Summary: Anesthesia Postop Eval I: Assessment Summary Airway patent Yes 04/20/25 13:53 CASINO CAGE [email or web address] Spontaneous unlabored Yes 04/20/25 13:53 CASINO CAGE MANAGER.JDEF respirations Mental status Awake 04/20/25 13:53 CASINO CAGE MANAGER.JDEF nausea No 04/20/25 13:53 CASINO CAGE MANAGER.JDEF Vomiting No 04/20/25 13:53 CASINO CAGE MANAGER.JDEF Anesthesia Postop Eval I: Fluid Summary Crystalloid volume administer 500 04/20/25 13:53 CASINO CAGE MANAGER.JDEF (ml) Colloids volume administered ( ml) Blood Product volume administered (ml) Total IV fluid infused 500 04/20/25 13:53 CASINO CAGE MANAGER.JDEF Anesthesia Postop Eval I: Summary Notes Anesthesia Complication No 04/20/25 13:53 CASINO CAGE MANAGER.JDEF Anesthesia Complication Comment: Post-operative progress note Anesthesia: Postop Eval II Evaluation Mental status: Awake Pain Level: 0 nausea: No Vomiting: No Complications Anesthesia Complication: No 04/20/25 1608 <Electronically signed by Aime Covarrubias MD> Date _ Aime Peterson Signature: Date CC: ~ Signed [facility] Work Phone: [phone]) [phone] Consult note Author Meliza Rea [facility] Note Date/Time April 20, 2025 1:53p m [facility] Medical Records Department [address] [place] [address] Anesthesia Postop Eval I 04/20/25 1352 MR#: [id number] Acct: [id number] Name: ANGÉLICA YO Rep #:[id number] : 1955 69 From: Meliza Rea CRNA PCP: Dr. Daron Benton MD Status:ADM IN Y Race: C Location: [place] [address] Anesthesia: Postop Eval I Current Vital Signs Temperature: 97.5 F Pulse Rate: 95 Blood Pressure: 141/86 Respiratory Rate: 20 Pulse Ox: 95 Oxygen Delivery Method: Room Air Assessment Airway patent: Yes Spontaneous unlabored respirations: Yes Mental status: Awake nausea: No Vomiting: No Anesthesia Complication: No Fluid Hydration Crystalloid volume administer (ml): 500 Total IV fluid infused: 500 Progress Note Anesthesia document: Postop Eval 1 completed: Yes 04/20/25 1353 <Electronically signed by Meliza mansfield CASINO CAGE MANAGER> Date _ Meliza Vanegasigner Signature: Date CC: ~ Signed [facility] Work Phone: 1(356) 908-962106-02-2025 Consult note Author Aime Covarrubias [facility] Note Date/Time April 20, 2025 1:21p m [facility] Medical Records Department [address] [place] [address] Pre-Anesthesia Evaluation 04/20/25 1313 MR#: [id number] Acct: [id number] Name: ANGÉLICA YO Rep #:[id number] : 1955 69 From: Aime Covarrubias MD PCP: Dr. Daron Benton MD Status:ADM IN Y Race: C Location: [place]3 [id number] -[id number] Aime Covarrubias MD on 04/20/25 at 1321 Addendum Teeth: edentulous 04/20/25 1321 <Electronically signed by Aime Covarrubias MD> Date _ Aime Covarrubias MD cc: ~* Signed ASA Classification* ASA Classification ASA Classification: 3 (pAF, HTN, MS, Hypothyroid, PAD (hx bilateral carotid artery stenosis)) Assessment & Plan Anesthesia* Anesthesia Assessment Anesthesia Assessment: Discussed sedation and/or anesthesia options, risks, benefits, and alternatives with patient/parents/legal guardian/POA. Questions invited. The patient/parents/legal guardian/POA seems to understand and agrees to proceedwith anesthesia plan. Reviewed the physical assessment, medical history, allergy history and patient home medications list prior to surgery/procedure/anesthetic and documented any changes. Performed airway and anesthesia risk assessments. Anesthesia Type Anesthesia Type: General History Source History Obtained from:: Patient and Chart Anesthesia Focused Assessment* Temperature: 97.3 F Pulse Rate: 60 Blood Pressure: 151/89 Respiratory Rate: 18 Pulse Ox: 100 Oxygen Delivery Method: Room Air Airway Assessment Mouth opens: >3 cm Mallampati Score: II Teeth Condition: Intact Neck Range of motion (ROM): Full ROM Focused Labs Anesthesia Preop lab: CBC WBC 5.0 K/mm3 (4.4-11.0) 04/20/25 05:40 04/20/25 RBC 3.99 M/mm3 (4.2-5.4) L 04/20/25 05:40 04/20/25 Hgb 10.6 g/dL (12.0-15.0) L 04/20/25 05:40 5 Hct 33.7 % (37-47) L 04/20/25 05:40 04/20/25 Plt Count 146 K/mm3 (150-450) L 04/20/25 05:40 04/20/25 CHEMISTRY Potassium 3.4 mmol/L (3.3-5.1) 04/20/25 05:40 04/20/25 Sodium 140 mmol/L (133-145) 04/20/25 05:40 04/20/25 Magnesium 2.2 mg/dL (1.5-2.2) 04/20/25 05:40 04/20/25 Phosphorus 3.5 mg/dL (2.7-4.5) 04/20/25 05:40 04/20/25 BUN 17 mg/dL (4-19) 04/20/25 05:40 04/20/25 Creatinine 1.23 mg/dL (0.70-1.20) H 04/20/25 05:40 Glucose 75 mg/dL (70-99) 04/20/25 05:40 04/20/25 POC Glucose 121 mg/dL (74-106) H 04/18/25 18:47 04/18/25 TSH 5.620 uIU/mL (0.300-4.200) H 04/20/25 05:40 COAG PT 12.9 SECONDS (11.7-14.9) 01/11/25 00:18 Pre-Assessment Diagnosis/Proposed Procedure Planned Operative Procedure(s): EGD 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 - test clerk: 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 - test clerk Hx Hospitalization No 04/15/21 11:49 Any Problems With Anesthesia No 02/24/24 23:50 Cholinesterase deficiency No 02/24/24 23:50 You/Your Family Experience No 02/24/24 23:50 fever (hyperthermia) with Relationship Recent Exposure to Contagious No 02/25/24 11:12 Disease Does patient have nerve No 02/24/24 23:50 stimulator Patient instructed to have device shut off --Does patient have Pacemaker or ICD? When Was Last Pacemaker Check QUESTION #4 FULL TEXT: You/Your Family Experience fever (hyperthermia) with Anesthesia Last Oral Intake Last Oral intake: Last Oral Intake NPO since Meds taken in AM with sips of water? Meds patient instructed to take am of surgery PONV PONV - test clerk: PONV - test clerk Female HX of Motion Sickness HX of N/V After Surgery Non-Smoker Duration of Surgery greater than 60 minutes Number of Risk Factors PONV Score Height & Weight Height & Weight: Anesthesia: Height & Weight Height 5 ft 5 in 04/19/25 10:28 Weight: 45.7 kg 04/19/25 10:28 Body Mass Index (BMI) 16.7 04/18/25 21:50 Respiratory Assessment Respiratory Assessment - test clerk: Respiratory Tract Infection Hx - test clerk Hx Respiratory Tract Infection No 02/24/24 23:50 STOP Sleep Apnea STOP Sleep Apnea - test clerk: STOP Sleep Apnea - test clerk Hx Hypertension Yes 04/18/25 21:53 Hx Sleep Apnea No 04/18/25 21:53 CPAP BIPAP Do you snore loudly (louder No 04/18/25 21:53 than talking or can be heard Do you often feel tired/ No 04/18/25 21:53 fatigued/ sleepy during daytime? Has anyone observed you stop No 04/18/25 21:53 breathing during sleep? STOP Results Negative 04/18/25 21:53 QUESTION #5 FULL TEXT : Do you snore loudly (louder than talking or can be heard through closed doors)? 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 Specify any problems Hx of Preganancy in last 3 No 04/18/25 21:53 Months Nurse Filling Out Transfusion DREDICK 04/18/25 21:53 & Questions: Date: 04/18/25 04/18/25 21:53 Time: 21:54 04/18/25 21:53 Patient unable to answer at this time (ie. 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 Hx Now Gestational Age (in weeks): EDC: Hx Hx Para Hx Section SAB No 02/24/24 23:50 Active Medications Active Medications: Current Medications Generic Name Dose Route Start Last Admin Trade Name Freq PRN Reason Stop Dose Admin Acetaminophen 650 mg 04/19/25 07:19 04/19/25 22:09 Acetaminophen 325 Mg Tablet PO 650 mg Q6H PRN PRN Administration Pain 1-10 Or Fever >100.7 Amlodipine Besylate 2.5 mg 04/19/25 10:00 04/19/25 12:52 Amlodipine 2.5 Mg Tablet PO 2.5 mg DAILY VIMAL Administration Protocol Atorvastatin Calcium 20 mg 04/18/25 22:00 04/19/25 22:10 Atorvastatin Calcium 20 Mg Tablet PO 20 mg QHS VIMAL Administration Baclofen 20 mg 04/19/25 00:00 04/20/25 05:36 Baclofen 10 Mg Tablet PO 20 mg Q6 VIMAL Administration Carvedilol 3.125 mg 04/19/25 08:00 04/20/25 07:44 Carvedilol 3.125 Mg Tablet PO 3.125 mg BIDCM VIMAL Administration Cholecalciferol 125 mcg 04/19/25 10:00 04/19/25 12:52 Cholecalciferol (Vit D3) 125 Mcg Capsule (5,000 Units) PO 125 mcg DAILY VIMAL Administration Docusate Sodium 100 mg 04/18/25 22:00 04/19/25 22:10 Docusate Sodium 100 Mg Capsule PO 100 mg BID VIMAL Administration Gabapentin 800 mg 04/18/25 22:00 04/20/25 05:34 Gabapentin 800 Mg Tablet PO 800 mg TID VIMAL Administration Guaifenesin 1 tablet 04/19/25 07:31 Guaifenesin/D-Methorphan Tab.Sr.12h PO Q12H PRN cough/congest Hydromorphone HCl 0.5 - 1 mg 04/19/25 07:19 Hydromorphone 1 Mg/Ml Syringe IV Q3H PRN PRN Pain Score 6-10 Sodium Chloride 250 mls @ 15 mls/hr 04/18/25 21:41 IV .[id number] PRN Saline Flush Sodium Chloride 250 mls @ 15 mls/hr 04/18/25 21:41 IV .[id number] PRN Additional IVPB Infusion Pantoprazole Sodium 40 mg/ 100 mls @ 330 mls/hr 04/18/25 21:57 04/20/25 09:59 Sodium Chloride IV 330 mls/hr Q24 VIMAL Administration Lactated Ringer's 1,000 mls @ 15 mls/hr 04/20/25 13:00 04/20/25 12:59 IV 15 mls/hr .Q48H VIMAL Administration Ipratropium [place] 2 spray 04/19/25 07:17 Ipratropium [place] 0.06% Nasal [place] NASAL TID PRN allergy symptoms Levothyroxine Sodium 50 mcg 04/19/25 06:00 04/20/25 05:36 Levothyroxine 50 Mcg Tablet PO 50 mcg DAILY@0600 VIMAL Administration Nutritional Formula (Lactose Free) 120 ml 04/19/25 08:00 04/19/25 17:22 Ensure Clear 120 Ml Liquid PO Not Given TIDCM VIMAL Oxycodone HCl 10 mg 04/19/25 07:19 04/20/25 05:34 Oxycodone 5 Mg Tablet PO 10 mg Q4H PRN PRN Administration Pain Score 4-10 Polyethylene Glycol 17 gm 04/18/25 22:00 04/19/25 22:11 Polyethylene Glycol 3350 17 Gm Packet PO 17 gm BID VIMAL Administration Sodium Chloride 10 - 40 ml 04/18/25 21:41 04/19/25 22:46 0.9% Saline Lock 10 Ml Syringe IV 10 ml UD PRN Administration SALINE FLUSH PFSH Medical History Hypertensive emergency NSTEMI, initial episode of care Emphysema of lung Smoking greater than 30 pack years New onset atrial fibrillation [place] (dyspnea on exertion) Atherosclerotic heart disease of [place] coronary artery without angina pectoris Cardiac murmur Elevated troponin Mitral stenosis Chronic low back pain Diastolic hypertension Chest pain Nicotine dependence, cigarettes, uncomplicated Elevated troponin Depression On home oxygen therapy Atrial fibrillation PAF (paroxysmal atrial fibrillation) Atrial fibrillation Hypothyroidism Smoker Coronary artery disease TIA (transient ischemic attack) Influenza A Nonsustained paroxysmal supraventricular tachycardia Multiple sclerosis Nonobstructive atherosclerosis of coronary artery Peripheral vascular occlusive disease Essential (primary) hypertension Bilateral carotid artery stenosis History of transient ischemic attack (TIA) Fatty liver Thrombocytopenia GERD (gastroesophageal reflux disease) Psoriatic arthritis Psoriasis Osteoporosis Osteoarthritis Goiter Multiple sclerosis HLD (hyperlipidemia) Angina pectoris Chronic pain syndrome Home Medications ?Medication ?Instructions ?Recorded ?Last Taken ?Type gabapentin 800 mg tablet 800 mg PO TID MS 07/16/18 History baclofen 20 mg tablet 20 mg PO Q6H MS 08/11/2112/13 History levothyroxine 50 mcg tablet 50 mcg PO DAILY thyroid 03/19/25 History oxycodone 10 mg tablet 10 mg PO Q6H PRN pain 12/01/23 History dextromethorphan-guaifenesin ER 60 1 tab PO Q12H PRN c ough/congest 02/19/24 03/19/25 History mg-1,200 mg tab,extend release,12hr (Mucinex DM) famotidine 40 mg tablet 40 mg PO QDAY PRN indigestio n 11/24/24 03/19/25 History lisinopril 10 mg tablet 10 mg PO BID blood pressure 11/24/24 03/19/25 History aspirin 81 mg tablet,delayed 81 mg PO BREAKFAST heart health 12/11/24 03/19/25 Rx release #30 tabs amlodipine 5 mg tablet (Norvasc) 2.5 mg (1/2 x 5 mg) P O QDAY bp #90 01/13/25 03/19/25 Rx tabs carvedilol 3.125 mg tablet 3.125 mg PO BIDCM heart #18 0 tabs 03/03/25 03/19/25 Rx apixaban 5 mg tablet (Eliquis) 5 mg PO Q12H anticoagul ation #180 03/09/25 03/19/25 Rx tabs cholecalciferol (vitamin D3) 125 125 mcg PO DAILY supp lement 04/18/25 Unknown History mcg (5,000 unit) capsule docusate sodium 100 mg capsule 100 mg PO BID stool sof tener 7 04/18/25 Unknown Rx (Colace) days #14 caps doxepin 10 mg/mL oral concentrate 5 - 10 mg PO QHS Unknown History ipratropium bromide 42 mcg (0.06 2 spray intranasal TI D PRN allergy 04/18/25 Unknown History %) nasal spray symptoms naloxegol 25 mg tablet (Movantik) 25 mg PO DAILY 30 da ys #30 tabs 04/18/25 Unknown Rx rosuvastatin 10 mg tablet 10 mg PO QHS hld 04/18/25 Un known History Allergy/AdvReac Type Severity Reaction Status Date / Time colestipol (From Colestid) Allergy Mild unknown Verified 04/18/25 18:19 pregabalin (From Lyrica) Allergy Mild Hives Verified 04/18/25 18:19 amitriptyline Allergy Rash Verified 04/18/25 18:19 temazepam (From Restoril) AdvReac Mild Nausea/Vom/ Verified 04/18/25 18:19 Diarrhea Antihistamines - Alkylamine AdvReac Nausea/Vom/ Verified 04/18/25 18:19 Diarrhea Antihistamines - Ethanolamine AdvReac Nausea/Vom/ Verified 04/18/25 18:19 Diarrhea Antihistamines - AdvReac Nausea/Vom/ Verified 04/18/25 18:19 Ethylenediamine Diarrhea Antihistamines - Piperazine AdvReac Nausea/Vom/ Verified 04/18/25 18:19 Diarrhea Antihistamines - Piperidine AdvReac Nausea/Vom/ Verified 04/18/25 18:19 Diarrhea aspirin AdvReac I'M ON Verified 04/18/25 18:19 BLOOD THINNERS codeine AdvReac Nausea Verified 04/18/25 18:19 Corticosteroids AdvReac Upset Verified 04/18/25 18:19 (Glucocorticoids) Stomach morphine AdvReac Nausea Verified 04/18/25 18:19 [id number] Reductase AdvReac Nausea Verified 04/18/25 18:19 Inhibitor (Vifiwao-Ppp-Wyz Reductase Inhibitor) Family History Mother Cancer CAD (coronary artery disease) Brain tumor Grandfather CVA (cerebral vascular accident) Father CAD (coronary artery disease) Ruptured abdominal aortic aneurysm (AAA) Sister Brain aneurysm Surgical History History of coronary artery stent placement History of appendectomy History of cholecystectomy History of angioplasty of peripheral vessel (07/11/19) Stenosis of left subclavian artery History of left heart catheterization (01/25/15) S/P coil embolization of cerebral aneurysm History of angioplasty of peripheral vessel History of right-sided carotid endarterectomy History of left-sided carotid endarterectomy History of partial thyroidectomy (11/30/05) History of hemorrhoidectomy History of hysterectomy History of section Brain aneurysm Fracture of right lower leg S/P insertion of iliac artery stent History of left breast biopsy H/O hemorrhoidectomy S/P hysterectomy H/O: S/P thyroidectomy Social History household members: none housing: apartment Smoking Status: Light Smoker (<10/day) alcohol intake: never caffeine: Yes Type: coffee and tea Review of Systems (Anesthesia) ROS Narrative System reviewed and no additional complaints, except as documented. Physical Exam Const alert, oriented x3 and average body habitus Resp normal respiratory effort, normal air movement and clear to auscultation bilaterally Cardio regular rate, regular rhythm, no murmurs and diaphoretic 04/20/25 1318 <Electronically signed by Aime Covarrubias MD> Date _ Aime Covarrubias MD Cosigner Signature: Date CC: ~ Signed [facility] Work Phone: 1(370) 539-161406-02-2025 Progress note Author Kevin Friend [facility] Note Date/Time April 20, 2025 1:19p [facility] Medical Records Department [facility] [place] [address] Progress Note 04/20/25 1318 MR#: [id number] Acct: [id number] Name: ANGÉLICA YO Rep #:[id number] 2 : 1955 69 From: Kevin Gonzalez DO PCP: Dr. Daron Benton MD Status:ADM IN Location: [place] [address] Progress Note Patient has been n.p.o. for upper endoscopy. She came in with a hemoglobin of 6.8. She did receive blood transfusions hemoglobin back up to 9. Physical Exam Const alert, oriented x3 and average body habitus Resp normal respiratory effort, normal air movement and clear to auscultation bilaterally Cardio regular rate, regular rhythm, no murmurs and diaphoretic Assessment & Plan Assessment/Plan (1) Symptomatic anemia: PLAN: Plan Patient is a 69-year-old lady presented with fatigue found to be anemic with hemoglobin of 7.3. She is on anticoagulation with Eliquis for atrial fibrillation. Hemoglobin is up after blood transfusion. She was explained alternatives, risk and benefits include not withstanding bleeding, infection, sepsis, perforation, need for more surgery . She will have an ASA of 3. Visit Charges Inpatient E&M: 81197 Subs Hosp L2 04/20/25 1319 <Electronically signed by Kevin Gonzalez DO> Kevin Flores Signature (if applicable): CC: ~ Signed [facility] Work Phone: 1(992) 264-649106-02-2025 Procedure [facility] 04-20-2025 Procedure [facility]06-02-2025 Progress note Author Roman Mckeon [facility] Note Date/Time April 20, 2025 7:32a m [facility] Medical Records Department [address] [place] [address] Progress Note - Hospitalist 04/20/25 0728 MR#: [id number] Acct: [id number] Name: ANGÉLICA YO Rep #:[id number] : 1955 69 From: Roman Mckeon MD PCP: Dr. Daron Benton MD Status:ADM IN Location: [place] [address] Reason for Visit Reason for Visit: Diagnoses Anemia, unspecified (04/18/25) Subjective Subjective Patient hemoglobin up to 10.3 following blood transfusion. Consult was placed to GI patient kept n.p.o. awaiting evaluation Objective Data Objective Data Vital Signs: Vital Signs Temp Pulse Resp BP Pulse Ox O2 Del Method 97.0 F L 51 L 18 139/93 H 98 Room Air 04/20/25 05:24 04/20/25 05:24 04/20/25 05:24 04/20/25 05:24 04/20/25 05:24 04/20/25 05:24 Oxygen Delivery Method Room Air Weight: 45.7 kg Body Mass Index (BMI) 16.7 Intake & Output: Intake and Output for Last 24 Hours 04/18/25 04/19/25 04/20/25 23:59 23:59 23:59 Intake Total 800 / 800 2850 / 2850 Output Total 650 / 650 400 / 400 Balance 800 / 800 2200 / 2200 -400 / -400 Lab / Micro Data 04/20/25 05:40 04/20/25 05:40 Labs: Laboratory Results - last 24 hr 04/18/25 19:18: Crossmatch See Detail 04/19/25 11:10: WBC 7.0, RBC 3.50 L, Hgb 9.5 L, Hct 29.4 L, MCV 84.0 D, MCH 27.1, MCHC 32.3, RDW Std Deviation 51.9 H, RDW Coeff of David 17.0 H, Plt Count 133 L, MPV 9.8, Immature Gran % (Auto) 0.400, Neut % (Auto) 74.9 H, Lymph % (Auto) 11.1 L, [place] % (Auto) 11.3 H, Eos % (Auto) 1.9, Baso % (Auto) 0.4, Absolute Neuts (auto) 5.2, Absolute Lymphs (auto) 0.78 L, Nucleated RBC % 0.3, Sodium 137, Potassium 3.6, Chloride 106, Carbon Dioxide 22.1, Anion Gap 10, BUN 20 H, Creatinine 1.17, Estim Creat Clear Calc 32.28 L, Est GFR (MDRD) Non-Af 50 L, BUN/Creatinine Ratio 16.8, Glucose 111 H, Calcium 8.1 04/20/25 05:40: WBC 5.0, RBC 3.99 L, Hgb 10.6 L, Hct 33.7 L, MCV 84.5, MCH 26.6 L, MCHC 31.5 L, RDW Std Deviation 52.5 H, RDW Coeff of David 16.9 H, Plt Count 146L, MPV 9.9, Sodium 140, Potassium 3.4, Chloride 106, Carbon Dioxide 22.5, Anion Gap 12, BUN 17, Creatinine 1.23 H, Estim Creat Clear Calc 30.70 L, Est GFR (MDRD) Non-Af 47 L, BUN/Creatinine Ratio 13.9, Glucose 75, Calcium 8.8, Phosphorus 3.5, Magnesium 2.2, TSH 5.620 H Physical Exam Narrative GENERAL: cooperative HEENT: Atraumatic; normocephalic EYES; Anicteric, pallor of the conjunctiva NECK; supple, normal thyroid, RESPIRATORY: Diminished to auscultation CARDIOVASCULAR: Regular S1 S2, GI: soft, normoactive bowel sounds, : No Renal angle tenderness; EXTREMITIES: No edema, no clubbing, MUSCULOSKELETAL: no muscle wasting NEURO: Awake; no lateralizing signs. SKIN: No Rash PSYCH; Flat affect Assessment & Plan Assessment/Plan (1) Symptomatic anemia: PLAN: Plan Patient is a 68-year-old lady presented with fatigue found to be anemic with hemoglobin of 7.3. 1. Symptomatic anemia ? Suspected to be secondary to chronic GI bleed exacerbated by the use of systemic anticoagulant?apixaban. Patient is on apixaban for systemic anticoagulation for A-fib. Patient hemoglobin on admission was 7.3. Patient hemoglobin did drop to 6.3 and order was given for patient to be transfused 1 unit PRBC. 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 Subsequent monitoring with daily H&Hordered consult placed to GI ? 04/20/2025; patient hemoglobin up to 10.6. Patient was kept n.p.o. pending GI evaluation 2. Paroxysmal A-fib ? Rate controlled on systemic anticoagulation with apixaban held given her presentation 3.. Hypertension - Blood pressure controlled, home medications continued with dose adjustment as needed 4. Multiple sclerosis ? Per history patient is on baclofen for muscle relaxation 5. Hypothyroidism ? Patient is on levothyroxine did continue with home dose 6. Peripheral arterial disease ? With history of bilateral carotid artery stenosis, peripheral vascular occlusive disease. Patient was on systemic anticoagulation with apixaban held given about reasons 7. Dyslipidemia ?Patient is on statin therapy, continued at home dose 8. DVT prophylaxis ? Patient is on apixaban held 9. Chronic pain syndrome ? Restarted patient home pain regimen Charges/Coding Visit Charges Inpatient E&M: 79427 Subs Hosp L2 04/20/25 0732 <Electronically signed by Roman Mckeon MD> Cosigner Signature (if applicable): CC: ~ Signed [facility] Work Phone: 1(192) 525-972606-01-2025 Progress note Author Roman Mckeon [facility] Note Date/Time April 19, 2025 8:12a m [facility] Medical Records Department [facility] [place] [address] Progress Note - Hospitalist 04/19/25709 MR#: [id number] Acct: [id number] Name: ANGÉLICA YO Rep #:[id number] 2 : 1955 69 From: Roman Mckeon MD PCP: Dr. Daron Benton MD Status:ADM IN Location: [place] [address] Reason for Visit Reason for Visit: Diagnoses Anemia, unspecified (04/18/25) Subjective Subjective Patient is a 68-year-old lady presented with fatigue found to be anemic with hemoglobin of 7.3. Objective Data Objective Data Vital Signs: Vital Signs Temp Pulse Resp BP Pulse Ox O2 Del Method 98.4 F 52 L 16 122/64 H 95 Room Air 04/19/25 06:23 04/19/25 06:23 04/19/25 06:23 04/19/25 06:23 04/19/25 06:23 04/19/25 06:23 Oxygen Delivery Method Room Air Weight: 45.7 kg Body Mass Index (BMI) 16.7 Intake & Output: Intake and Output for Last 24 Hours 04/17/25 04/18/25 04/19/25 23:59 23:59 23:59 Intake Total 800 / 800 0 / 0 Balance 800 / 800 0 / 0 Lab / Micro Data 04/19/25 01:33 04/18/25 18:36 Labs: Laboratory Results - last 24 hr 04/18/25 18:36: WBC 8.7, RBC 2.97 L, Hgb 7.3 L, Hct 23.5 L, MCV 79.1 L, MCH 24.6L, MCHC 31.1 L, RDW Std Deviation 50.4 H, RDW Coeff of David 17.3 H, Plt Count 195, MPV 9.6, Immature Gran % (Auto) 0.500, Neut % (Auto) 79.5 H, Lymph % (Auto)9.5 L, [place] % (Auto) 9.4, Eos % (Auto) 0.5, Baso % (Auto) 0.6, Absolute Neuts (auto) 7.0, Absolute Lymphs (auto) 0.83, Nucleated RBC % 0.2, Sodium 133, Potassium 3.8, Chloride 97 L, Carbon Dioxide 21.0, Anion Gap 15, BUN 24 H, Creatinine 1.28 H, Estim Creat Clear Calc 29.72 L, Est GFR (MDRD) Non-Af 45 L, BUN/Creatinine Ratio 18.9, Glucose 135 H, Lactic Acid 2.6 H*, Calcium 9.0, TotalBilirubin 0.35, AST 16, ALT 8, Alkaline Phosphatase 88, Troponin T High Sens 30 H, Total Protein 6.4, Albumin 4.1, Globulin 2.4, Albumin/Globulin Ratio 1.7, Lipase 15, Blood Type Cancelled, Antibody Screen Cancelled 04/18/25 18:47: POC Glucose 121 H 04/18/25 19:18: Blood Type O POSITIVE, Antibody Screen NEGATIVE, Crossmatch See Detail 04/18/25 20:29: Iron 16 L, TIBC 372, Iron Saturation 4.0 L, Unsaturated IBC 356,Ferritin 12 L, Troponin T Hi Sens 2 Hr 24 H 04/18/25 23:25: Lactic Acid < 1.0, Troponin T Hi Sens 4Hr 24 H 04/19/25 01:33: Hgb 6.3 L, Hct 20.6 L Physical Exam Narrative GENERAL: cooperative HEENT: Atraumatic; normocephalic EYES; Anicteric, pallor of the conjunctiva NECK; supple, normal thyroid, RESPIRATORY: Diminished to auscultation CARDIOVASCULAR: Regular S1 S2, GI: soft, normoactive bowel sounds, : No Renal angle tenderness; EXTREMITIES: No edema, no clubbing, MUSCULOSKELETAL: no muscle wasting NEURO: Awake; no lateralizing signs. SKIN: No Rash PSYCH; Flat affect Assessment & Plan Assessment/Plan (1) Symptomatic anemia: PLAN: Plan Patient is a 68-year-old lady presented with fatigue found to be anemic with hemoglobin of 7.3. 1. Symptomatic anemia ? Suspected to be secondary to chronic GI bleed. Patient is on apixaban for systemic anticoagulation for A-fib. Patient hemoglobin on admission was 7.3. Patient hemoglobin did drop to 6.3 and order was given for patient to be transfused 1 unit PRBC. 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 Subsequent monitoring with daily H&H ordered consult placed to GI 2. Paroxysmal A-fib ? Rate controlled on systemic anticoagulation with apixaban held given her presentation 3.. Hypertension - Blood pressure controlled, home medications continued with dose adjustment as needed 4. Multiple sclerosis ? Per history patient is on baclofen for muscle relaxation 5. Hypothyroidism ? Patient is on levothyroxine did continue with home dose 6. Peripheral arterial disease ? With history of bilateral carotid artery stenosis, peripheral vascular occlusive disease. Patient was on systemic anticoagulation with apixaban held given about reasons 7. Dyslipidemia ?Patient is on statin therapy, continued at home dose 8. DVT prophylaxis ? Patient is on apixaban held 9. Chronic pain syndrome ? Restarted patient home pain regimen Time spent in the patient's overall evaluation,decision-making process, review of diagnostic data, adjustment of management, discussion with other providers, nursing nursing and ancillary staff involved in patient's care documentation, 52Minutes Charges/Coding Visit Charges Inpatient E&M: 12594 Subs Hosp 04/19/25 0812 <Electronically signed by Roman Mckeon MD> Cosigner Signature (if applicable): CC: ~ Signed [facility] Work Phone: 1(604) 562-457806-01-2025 History and physical note Author Sachin Murillo [facility] Note Date/Time April 19, 2025 12:52 am [facility] Medical Records Department [address] [place] [address] H&P Exam - Hospitalist 04/18/252126 MR#: [id number] Acct: [id number] Name: ANGÉLICA YO Rep #:[id number] : 1955 69 From: Sachin chan MD PCP: Dr. Daron Benton MD Status:ADM IN Location: [facility] [id number] HPI - General General Date of Admission: 04/18/25 HPI Narrative ANGÉLICA YO, is a 69 F who presents to the hospital for increasing abdominal pain. No leukocytosis or fevers and she denies any bloody bowel movements or hematemesis however she was in the ER last evening for constipation and she was given an enema and after she had a bowel movement she felt a little bit better. Today she is complaining of epigastric burning pain and she has had ulcers in the past. Hemoglobin earlier this month was 8.8, today at 7.3. She has been normal recently but she has had periods in the past where she has been as low. She was having abdominal pain on 04/02/[address] scan at that time indicated a significant stool burden but no other acute findings. She denies any lightheadedness or dizziness, no nausea or vomiting. [facility] Medical History Hypertensive emergency NSTEMI, initial episode of care Emphysema of lung Smoking greater than 30 pack years New onset atrial fibrillation TOLEDO (dyspnea on exertion) Atherosclerotic heart disease of [place] coronary artery without angina pectoris Cardiac murmur Elevated troponin Mitral stenosis Chronic low back pain Diastolic hypertension Chest pain Nicotine dependence, cigarettes, uncomplicated Elevated troponin Depression On home oxygen therapy Atrial fibrillation PAF (paroxysmal atrial fibrillation) Atrial fibrillation Hypothyroidism Smoker Coronary artery disease TIA (transient ischemic attack) Influenza A Nonsustained paroxysmal supraventricular tachycardia Multiple sclerosis Nonobstructive atherosclerosis of coronary artery Peripheral vascular occlusive disease Essential (primary) hypertension Bilateral carotid artery stenosis History of transient ischemic attack (TIA) Fatty liver Thrombocytopenia GERD (gastroesophageal reflux disease) Psoriatic arthritis Psoriasis Osteoporosis Osteoarthritis Goiter Multiple sclerosis HLD (hyperlipidemia) Angina pectoris Chronic pain syndrome Home Medications ?Medication ?Instructions ?Recorded ?Last Taken ?Type gabapentin 800 mg tablet 800 mg PO TID MS 07/16/18 History baclofen 20 mg tablet 20 mg PO Q6H MS 08/11/2112/13 History levothyroxine 50 mcg tablet 50 mcg PO DAILY thyroid 03/19/25 History oxycodone 10 mg tablet 10 mg PO Q6H PRN pain 12/01/23 History dextromethorphan-guaifenesin ER 60 1 tab PO Q12H PRN c ough/congest 02/19/24 03/19/25 History mg-1,200 mg tab,extend release,12hr (Mucinex DM) famotidine 40 mg tablet 40 mg PO QDAY PRN indigestio n 11/24/24 03/19/25 History lisinopril 10 mg tablet 10 mg PO BID blood pressure 11/24/24 03/19/25 History aspirin 81 mg tablet,delayed 81 mg PO BREAKFAST heart health 12/11/24 03/19/25 Rx release #30 tabs amlodipine 5 mg tablet (Norvasc) 2.5 mg (1/2 x 5 mg) P O QDAY bp #90 01/13/25 03/19/25 Rx tabs carvedilol 3.125 mg tablet 3.125 mg PO BIDCM heart #18 0 tabs 03/03/25 03/19/25 Rx apixaban 5 mg tablet (Eliquis) 5 mg PO Q12H anticoagul ation #180 03/09/25 03/19/25 Rx tabs cholecalciferol (vitamin D3) 125 125 mcg PO DAILY supp lement 04/18/25 Unknown History mcg (5,000 unit) capsule docusate sodium 100 mg capsule 100 mg PO BID stool sof tener 7 04/18/25 Unknown Rx (Colace) days #14 caps doxepin 10 mg/mL oral concentrate 5 - 10 mg PO QHS Unknown History ipratropium bromide 42 mcg (0.06 2 spray intranasal TI D PRN allergy 04/18/25 Unknown History %) nasal spray symptoms naloxegol 25 mg tablet (Movantik) 25 mg PO DAILY 30 da ys #30 tabs 04/18/25 Unknown Rx rosuvastatin 10 mg tablet 10 mg PO QHS hld 04/18/25 Un known History Allergy/AdvReac Type Severity Reaction Status Date / Time colestipol (From Colestid) Allergy Mild unknown Verified 04/18/25 18:19 pregabalin (From Lyrica) Allergy Mild Hives Verified 04/18/25 18:19 amitriptyline Allergy Rash Verified 04/18/25 18:19 temazepam (From Restoril) AdvReac Mild Nausea/Vom/ Verified 04/18/25 18:19 Diarrhea Antihistamines - Alkylamine AdvReac Nausea/Vom/ Verified 04/18/25 18:19 Diarrhea Antihistamines - Ethanolamine AdvReac Nausea/Vom/ Verified 04/18/25 18:19 Diarrhea Antihistamines - AdvReac Nausea/Vom/ Verified 04/18/25 18:19 Ethylenediamine Diarrhea Antihistamines - Piperazine AdvReac Nausea/Vom/ Verified 04/18/25 18:19 Diarrhea Antihistamines - Piperidine AdvReac Nausea/Vom/ Verified 04/18/25 18:19 Diarrhea aspirin AdvReac I'M ON Verified 04/18/25 18:19 BLOOD THINNERS codeine AdvReac Nausea Verified 04/18/25 18:19 Corticosteroids AdvReac Upset Verified 04/18/25 18:19 (Glucocorticoids) Stomach morphine AdvReac Nausea Verified 04/18/25 18:19 Ucmhwkq-[id number]-GpW Reductase AdvReac Nausea Verified 04/18/25 18:19 Inhibitor (Rauaoqj-Uny-Ukd Reductase Inhibitor) Family History Mother Cancer CAD (coronary artery disease) Brain tumor Grandfather CVA (cerebral vascular accident) Father CAD (coronary artery disease) Ruptured abdominal aortic aneurysm (AAA) Sister Brain aneurysm Surgical History History of coronary artery stent placement History of appendectomy History of cholecystectomy History of angioplasty of peripheral vessel (07/11/19) Stenosis of left subclavian artery History of left heart catheterization (01/25/15) S/P coil embolization of cerebral aneurysm History of angioplasty of peripheral vessel History of right-sided carotid endarterectomy History of left-sided carotid endarterectomy History of partial thyroidectomy (11/30/05) History of hemorrhoidectomy History of hysterectomy History of section Brain aneurysm Fracture of right lower leg S/P insertion of iliac artery stent History of left breast biopsy H/O hemorrhoidectomy S/P hysterectomy H/O: S/P thyroidectomy Social History household members: none housing: apartment Smoking Status: Light Smoker (<10/day) alcohol intake: never caffeine: Yes Type: coffee and tea ROS Constitutional Constitutional: Denies chills, fatigue, fever(s) or malaise Eyes Eyes: Denies blurry vision ENT HEENT: Denies headache(s) or nasal discharge Cardiovascular Cardiovascular: Denies chest pain, dyspnea on exertion or syncope Respiratory/Chest Respiratory/Chest: Denies cough, shortness of breath at rest or shortness of breath with exertion Gastrointestinal Gastrointestinal: Reports abdominal pain; Denies constipation, diarrhea, nausea or vomiting Genitourinary Genitourinary: Denies dysuria Neurologic Neurologic: Denies focal weakness, numbness or tremor(s) Psychiatric Psychiatric: Denies anxiety or depression Vital Signs Vital Signs Vital Signs: 04/18/25 18:17 04/18/25 18:30 04/18/25 18:34 Temperature 98 F Temperature Source Oral Pulse Rate 113 H 70 70 Respiratory Rate 16 12 Respiratory Effort Respiratory Pattern Blood Pressure 89/49 L 80/67 L 119/66 Blood Pressure Mean 62 71 83 Pulse Ox 98 99 Oxygen Delivery Method Room Air Room Air 04/18/25 18:45 04/18/25 18:50 04/18/25 18:55 Temperature Temperature Source Pulse Rate 65 68 Respiratory Rate 12 Respiratory Effort Normal Respiratory Pattern Normal Blood Pressure 111/65 Blood Pressure Mean 80 Pulse Ox 100 100 Oxygen Delivery Method 04/18/25 19:00 04/18/25 19:00 04/18/25 19:15 Temperature Temperature Source Pulse Rate 66 62 Respiratory Rate 11 L Respiratory Effort Respiratory Pattern Blood Pressure 123/63 H 123/63 H 109/63 Blood Pressure Mean 83 81 77 Pulse Ox 95 Oxygen Delivery Method 04/18/25 19:16 04/18/25 19:27 04/18/25 19:30 Temperature Temperature Source Pulse Rate 64 63 62 Respiratory Rate 15 12 Respiratory Effort Respiratory Pattern Blood Pressure 109/63 109/63 116/58 L Blood Pressure Mean 78 78 75 Pulse Ox 100 100 Oxygen Delivery Method Room Air 04/18/25 19:45 04/18/25 20:00 04/18/25 20:00 Temperature Temperature Source Pulse Rate 67 65 Respiratory Rate 9 L 15 Respiratory Effort Respiratory Pattern Blood Pressure 145/67 H 125/60 H 125/60 H Blood Pressure Mean 88 81 80 Pulse Ox 99 98 Oxygen Delivery Method Room Air Room Air 04/18/25 20:15 04/18/25 20:30 04/18/25 20:45 Temperature Temperature Source Pulse Rate 63 63 69 Respiratory Rate 15 10 L 12 Respiratory Effort Respiratory Pattern Blood Pressure 124/66 H 122/69 H 140/71 H Blood Pressure Mean 83 85 91 Pulse Ox 98 99 100 Oxygen Delivery Method Room Air 04/18/25 21:00 04/18/25 21:23 Temperature 98.9 F Temperature Source Pulse Rate 85 62 Respiratory Rate 11 L 21 H Respiratory Effort Respiratory Pattern Blood Pressure 146/89 H 141/79 H Blood Pressure Mean 105 99 Pulse Ox 100 100 Oxygen Delivery Method Room Air Weight Weight: 101 lb 8 oz Body Mass Index (BMI) 16.9 Physical Exam Narrative General: Alert, Oriented x3, Cooperative, No apparent distress pale, HEENT: Atraumatic, PERRLA, EOMI, Normocephalic Oral: Moist Mucosa Neck: Supple, No JVD Lungs: Diminished, Normal air movement, No rhonchi, No wheeze, No rales Cardiovascular: Regular rate, Regular Rhythm, Normal S1, Normal S2, No murmurs Abdomen: Soft, Non Tender, Non-Distended, No Hepato-splenomegaly Extremities: No edema, Capillary Refill Less than 3 Seconds Skin: No rashes, No breakdown Musculoskeletal: No Tenderness to Palpation of Joints or Extremities Neurological: No focal neurological deficits, moves all extremities Psych/Mental Status: Normal Affect, Appropriate Results Lab / Micro Data 04/18/25 18:36 04/18/25 18:36 Labs: Laboratory Results - last 24 hr 04/18/25 18:36: WBC 8.7, RBC 2.97 L, Hgb 7.3 L, Hct 23.5 L, MCV 79.1 L, MCH 24.6L, MCHC 31.1 L, RDW Std Deviation 50.4 H, RDW Coeff of David 17.3 H, Plt Count 195, MPV 9.6, Immature Gran % (Auto) 0.500, Neut % (Auto) 79.5 H, Lymph % (Auto)9.5 L, [place] % (Auto) 9.4, Eos % (Auto) 0.5, Baso % (Auto) 0.6, Absolute Neuts (auto) 7.0, Absolute Lymphs (auto) 0.83, Nucleated RBC % 0.2, Sodium 133, Potassium 3.8, Chloride 97 L, Carbon Dioxide 21.0, Anion Gap 15, BUN 24 H, Creatinine 1.28 H, Estim Creat Clear Calc 29.72 L, Est GFR (MDRD) Non-Af 45 L, BUN/Creatinine Ratio 18.9, Glucose 135 H, Lactic Acid 2.6 H*, Calcium 9.0, TotalBilirubin 0.35, AST 16, ALT 8, Alkaline Phosphatase 88, Troponin T High Sens 30 H, Total Protein 6.4, Albumin 4.1, Globulin 2.4, Albumin/Globulin Ratio 1.7, Lipase 15, Blood Type Cancelled, Antibody Screen Cancelled 04/18/25 18:47: POC Glucose 121 H 04/18/25 19:18: Blood Type O POSITIVE, Antibody Screen NEGATIVE 04/18/25 20:29: Troponin T Hi Sens 2 Hr 24 H Assessment & Plan Assessment/Plan (1) Symptomatic anemia: PLAN: Plan 1. Symptomatic anemia ? She had a colonoscopy in 2023 with external/internal hemorrhoids and multiple polyps that were resected she also had an EGD at the same time with 2 nonbleeding AVMs in her duodenum that were treated ? Continue PPI ? Will recheck her H&H around 1 AM ? Hemoglobin is down to 7.3 today it was 8.8 two weeks ago ? She denies any dark stools or hematemesis ? Fecal occult is pending ? She has been having issues with constipation so also placed her on twice dailyMiraLAX 2. Paroxysmal A-fib/history of CVA/PAD with iliac stent/history of TIA/nonobstructive CAD/essential HTN/HLD ? Will hold her Eliquis ? Will hold her blood pressures as she was little bit soft initially when she came into the hospital but she did get some fluid ? Continue with Crestor 3. Hypothyroidism ? Stable ? Continue with Synthroid 4. History of MS ? Continue with her home medications DVT: SCDs Charges/Coding Visit Charges Inpatient E&M: 12717 Init Hosp L2 04/19/25 0052 <Electronically signed by Sachin Murillo MD> Cosigner Signature (if applicable): CC: Dr. Daron Benton MD; Dr. Sachin Murillo MD~ Signed [facility] Work Phone: [phone] 236-588306-01-2025 Discharge summary Author Jeffy Willoughby [facility] Note Date/Time April 18, 2025 10:46 pm [facility] Medical Records Department [address] [place] [address] Emergency Department Summary 04/18/25 MR#: [id number] Acct: [id number] Name: ANGÉLICA YO Rep #:[id number] 1 : 1955 69 From: Jeffy Willoughby MD PCP: Dr. Daron Benton MD Status:ADM IN Location: NV3 [id number] HPI History of Present Illness Chief Complaint: Abd Pain Detail of Chief Complaint: Patient states he retracted she is no better. She was seen for chronic dennis Informant: patient Onset/Context/Timing Onset: Today (Sour eructations and heartburn) Context: Sudden Onset Timing: Intermittent Quality: Burning sensation back of the throat Location: Previously described Current Severity: Mild Maximum Severity: Severe Worsened by: Nothing Relieved by: Nothing Associated Symptoms Associated Symptoms: Patient reports black stool yesterday. She took Pepto- Bismol today. Narrative Narrative: Patient is a 69-year-old woman. She has multiple medical problems which includes cognitive impairment of unknown etiology, paroxysmal atrial fibrillation on apixaban, hyperlipidemia, non-ST elevation NV, alpha-1 antitrypsin deficiency, mitral valve stenosis, chronic pain and hyperlipidemia. Review of inpatient notes indicates patient has bilateral carotid stenosis. Patient was seen yesterday for chronic pain. Patient appears pale. She states she feels weak. Initial blood pressure was 89systolic. She normally has hypertension based on review of prior records. She denies chest pressure, tightness or heaviness. She denies hematemesis or coffee-ground emesis. She denies shortness of breath. She does report epigastric discomfort. She denies intolerance to greasy or fried foods. She has no known history of hepatic or biliary disease. She denies dysuria, frequency, urgency or hematuria. She does endorse being lightheaded when she is upright. Prior similar symptoms: No Recent Illness/Hospitalization: Yes PFSH PFS Medical History Hypertensive emergency NSTEMI, initial episode of care Emphysema of lung Smoking greater than 30 pack years New onset atrial fibrillation TOLEDO (dyspnea on exertion) Atherosclerotic heart disease of [place] coronary artery without angina pectoris Cardiac murmur Elevated troponin Mitral stenosis Chronic low back pain Diastolic hypertension Chest pain Nicotine dependence, cigarettes, uncomplicated Elevated troponin Depression On home oxygen therapy Atrial fibrillation PAF (paroxysmal atrial fibrillation) Atrial fibrillation Hypothyroidism Smoker Coronary artery disease TIA (transient ischemic attack) Influenza A Nonsustained paroxysmal supraventricular tachycardia Multiple sclerosis Nonobstructive atherosclerosis of coronary artery Peripheral vascular occlusive disease Essential (primary) hypertension Bilateral carotid artery stenosis History of transient ischemic attack (TIA) Fatty liver Thrombocytopenia GERD (gastroesophageal reflux disease) Psoriatic arthritis Psoriasis Osteoporosis Osteoarthritis Goiter Multiple sclerosis HLD (hyperlipidemia) Angina pectoris Chronic pain syndrome Home Medications ?Medication ?Instructions ?Recorded ?Last Taken ?Type gabapentin 800 mg tablet 800 mg PO TID MS 07/16/18 History baclofen 20 mg tablet 20 mg PO Q6H MS 08/11/2112/13 History levothyroxine 50 mcg tablet 50 mcg PO DAILY thyroid 03/19/25 History oxycodone 10 mg tablet 10 mg PO Q6H PRN pain 12/01/23 History dextromethorphan-guaifenesin ER 60 1 tab PO Q12H PRN c ough/congest 02/19/24 03/19/25 History mg-1,200 mg tab,extend release,12hr (Mucinex DM) famotidine 40 mg tablet 40 mg PO QDAY PRN indigestio n 11/24/24 03/19/25 History lisinopril 10 mg tablet 10 mg PO BID blood pressure 11/24/24 03/19/25 History aspirin 81 mg tablet,delayed 81 mg PO BREAKFAST heart health 12/11/24 03/19/25 Rx release #30 tabs amlodipine 5 mg tablet (Norvasc) 2.5 mg (1/2 x 5 mg) P O QDAY #90 01/13/25 03/19/25 Rx tabs carvedilol 3.125 mg tablet 3.125 mg PO BIDCM #180 tabs 03/03/25 03/19/25 Rx apixaban 5 mg tablet (Eliquis) 5 mg PO Q12H anticoagul ation #180 03/09/25 03/19/25 Rx tabs cholecalciferol (vitamin D3) 125 125 mcg PO DAILY 03/21 12/13 Unknown History mcg (5,000 unit) capsule docusate sodium 100 mg capsule 100 mg PO BID 7 days #1 4 caps 04/18/25 Unknown Rx (Colace) doxepin 10 mg/mL oral concentrate 5 - 10 mg PO QHS Unknown History ipratropium bromide 42 mcg (0.06 2 spray intranasal TI D PRN allergy 04/18/25 Unknown History %) nasal spray symptoms naloxegol 25 mg tablet (Movantik) 25 mg PO DAILY 30 da ys #30 tabs 04/18/25 Unknown Rx rosuvastatin 10 mg tablet 10 mg PO QHS 04/18/25 Unknow n History Allergy/AdvReac Type Severity Reaction Status Date / Time colestipol (From Colestid) Allergy Mild unknown Verified 04/18/25 18:19 pregabalin (From Lyrica) Allergy Mild Hives Verified 04/18/25 18:19 amitriptyline Allergy Rash Verified 04/18/25 18:19 temazepam (From Restoril) AdvReac Mild Nausea/Vom/ Verified 04/18/25 18:19 Diarrhea Antihistamines - Alkylamine AdvReac Nausea/Vom/ Verified 04/18/25 18:19 Diarrhea Antihistamines - Ethanolamine AdvReac Nausea/Vom/ Verified 04/18/25 18:19 Diarrhea Antihistamines - AdvReac Nausea/Vom/ Verified 04/18/25 18:19 Ethylenediamine Diarrhea Antihistamines - Piperazine AdvReac Nausea/Vom/ Verified 04/18/25 18:19 Diarrhea Antihistamines - Piperidine AdvReac Nausea/Vom/ Verified 04/18/25 18:19 Diarrhea aspirin AdvReac I'M ON Verified 04/18/25 18:19 BLOOD THINNERS codeine AdvReac Nausea Verified 04/18/25 18:19 Corticosteroids AdvReac Upset Verified 04/18/25 18:19 (Glucocorticoids) Stomach morphine AdvReac Nausea Verified 04/18/25 18:19 Lzzzihm-QJZ-HnR Reductase AdvReac Nausea Verified 04/18/25 18:19 Inhibitor (Ndctgnv-Dbm-Xuj Reductase Inhibitor) Family History Mother Cancer CAD (coronary artery disease) Brain tumor Grandfather CVA (cerebral vascular accident) Father CAD (coronary artery disease) Ruptured abdominal aortic aneurysm (AAA) Sister Brain aneurysm Surgical History History of coronary artery stent placement History of appendectomy History of cholecystectomy History of angioplasty of peripheral vessel (07/11/19) Stenosis of left subclavian artery History of left heart catheterization (01/25/15) S/P coil embolization of cerebral aneurysm History of angioplasty of peripheral vessel History of right-sided carotid endarterectomy History of left-sided carotid endarterectomy History of partial thyroidectomy (11/30/05) History of hemorrhoidectomy History of hysterectomy History of section Brain aneurysm Fracture of right lower leg S/P insertion of iliac artery stent History of left breast biopsy H/O hemorrhoidectomy S/P hysterectomy H/O: S/P thyroidectomy Social History household members: none housing: apartment Smoking Status: Light Smoker (<10/day) alcohol intake: never caffeine: Yes Type: coffee and tea ROS ROS ED Constitutional Constitutional ED: Reports chills; Denies fever(s), subjective, sweats or weightloss Eyes Eyes: Denies blurry vision or change in vision ENT ENT ED: Denies ear pain, rhinorrhea or sore throat Cardiovascular Cardiovascular: Denies chest pain, orthopnea, palpitations, paroxysmal nocturnaldyspnea or racing heartbeat Respiratory/Chest Respiratory/Chest: Denies cough, dyspnea, dyspnea on exertion, orthopnea or paroxysmal nocturnal dyspnea Gastrointestinal Gastrointestinal: Reports abdominal pain and other Details: Further detailed HPInarrative ; Denies constipation, diarrhea, melena, nausea or vomiting Musculoskeletal Musculoskeletal: Denies arthralgias, back pain or myalgias Integumentary Denies rash Neurologic Neurologic: Denies headache(s), paresthesias or weakness Psychiatric Psychiatric: Denies anxiety or depression Endocrine Endocrinology: Denies cold intolerance or heat intolerance Hematologic/Lymphatic Hematologic/Lymphatic: Reports systems reviewed and no addt'l complaints, exceptas documented EXAM Physical Exam Const Vital Signs: 04/18/25 18:17 04/18/25 18:30 04/18/25 18:34 Temperature 98 F Temperature Source Oral Pulse Rate 113 H 70 70 Respiratory Rate 16 12 Respiratory Effort Respiratory Pattern Blood Pressure 89/49 L 80/67 L 119/66 Blood Pressure Mean 62 71 83 Pulse Ox 98 99 Oxygen Delivery Method Room Air Room Air 04/18/25 18:45 04/18/25 18:50 04/18/25 18:55 Temperature Temperature Source Pulse Rate 65 68 Respiratory Rate 12 Respiratory Effort Normal Respiratory Pattern Normal Blood Pressure 111/65 Blood Pressure Mean 80 Pulse Ox 100 100 Oxygen Delivery Method 04/18/25 19:00 04/18/25 19:00 04/18/25 19:15 Temperature Temperature Source Pulse Rate 66 62 Respiratory Rate 11 L Respiratory Effort Respiratory Pattern Blood Pressure 123/63 H 123/63 H 109/63 Blood Pressure Mean 83 81 77 Pulse Ox 95 Oxygen Delivery Method 04/18/25 19:16 04/18/25 19:27 04/18/25 19:30 Temperature Temperature Source Pulse Rate 64 63 62 Respiratory Rate 15 12 Respiratory Effort Respiratory Pattern Blood Pressure 109/63 109/63 116/58 L Blood Pressure Mean 78 78 75 Pulse Ox 100 100 Oxygen Delivery Method Room Air 04/18/25 19:45 04/18/25 20:00 04/18/25 20:00 Temperature Temperature Source Pulse Rate 67 65 Respiratory Rate 9 L 15 Respiratory Effort Respiratory Pattern Blood Pressure 145/67 H 125/60 H 125/60 H Blood Pressure Mean 88 81 80 Pulse Ox 99 98 Oxygen Delivery Method Room Air Room Air 04/18/25 20:15 04/18/25 20:30 04/18/25 20:45 Temperature Temperature Source Pulse Rate 63 63 69 Respiratory Rate 15 10 L 12 Respiratory Effort Respiratory Pattern Blood Pressure 124/66 H 122/69 H 140/71 H Blood Pressure Mean 83 85 91 Pulse Ox 98 99 100 Oxygen Delivery Method Room Air 04/18/25 21:00 Temperature Temperature Source Pulse Rate 85 Respiratory Rate 11 L Respiratory Effort Respiratory Pattern Blood Pressure 146/89 H Blood Pressure Mean 105 Pulse Ox 100 Oxygen Delivery Method Room Air Positive well nourished and well developed Constitutional Narrative: Patient is very pale. She is hypotensive. General Appearance ED: well developed and pallor HEENT Reports moist mucous membranes HEENT Narrative: Head is atraumatic no cephalic. Ears normal. Nares patent. Posterior pharynx is normal. Eyes PERRL and EOMs intact bilaterally General Eye ED: Yes pale conjunctiva; Negative for scleral icterus Neck no lymphadenopathy, supple and no JVD Chest Wall inspection of chest normal and palpation of chest normal Resp normal respiratory effort and clear to auscultation bilaterally Cardio regular rate, regular rhythm, S1 normal heart sound, S2 normal heart sound and no murmurs GI no masses; Negative for non-tender, non-distended or hepatosplenomegaly Inspection: abdominal distention Auscultation: hypoactive bowel sounds Palpation: soft and tender RUQ and Littlejohn's sign Back/Spine no CVA tenderness Thoracic Spine / Upper Back: Negative for thoracic spinal tenderness Lumbar Spine / Lower Back: Negative for lumbar spinal tenderness Extremity normal to inspection General Extremety ED: Negative for edema or tenderness General Extremity: Negative for edema Neuro oriented x3 and CN's II-XII intact bilaterally Sensorium / Orientation: alert Psych mental status grossly normal Skin no rashes or lesions noted, no wounds and skin turgor normal General Skin Exam: pallor; Negative for elasticity normal or jaundice MDM MDM MDM Narrative Medical decision making narrative: Patient is orthostatic/hypotensive. She is also very pale. She reported black stool last evening. Rectal exam reveals no fissures, fistulas or hemorrhoids. Material that was in the rectal vault is light brown. There is no blood or black or maroon stool. There is no palpable mass. Need to evaluate for GI bleed, hypovolemia, possible cardiac ischemia and need to consider infectious etiology and possible biliary pathology with the right upper quadrant tenderness. Since she was hypotensive she received a 500 cc bolus which is equivalent to 10 cc/kg. She was typed and screened. No labs were obtained prior to ER visits. She was admitted December of this year for hypertensive emergency and demand ischemia due to the hypertensive emergency. History & Record Review Additional record(s) reviewed:: Prior inpatient record, Prior ED visit and Priorlabs Lab Data Attestation: I reviewed the patient's lab results. Lab results narrative: CBC is remarkable for an H&H of 7.3 and 23.5 with an MCV of 79. H&H on April 02 was 8.8 and 28.2 with a normal MCV. December 2024 H&H was 12.5 and 39.1. Creatinine is elevated at 1.28. On 02 April the creatinine was 1.23 and January creatinine was 1.06. Estimated GFR today is 45. Lipase is normal. Liver enzymes are normal. Lactate is elevated 2.6. Second troponin is 24 with a delta of -6 Labs: Laboratory Results - last 24 hr 04/18/25 04/18/25 04/18/25 18:36 18:47 19:18 WBC 8.7 RBC 2.97 L Hgb 7.3 L Hct 23.5 L MCV 79.1 L MCH 24.6 L MCHC 31.1 L RDW Std Deviation 50.4 H RDW Coeff of David 17.3 H Plt Count 195 MPV 9.6 Immature Gran % (Auto) 0.500 Neut % (Auto) 79.5 H Lymph % (Auto) 9.5 L [place] % (Auto) 9.4 Eos % (Auto) 0.5 Baso % (Auto) 0.6 Absolute Neuts (auto) 7.0 Absolute Lymphs (auto) 0.83 Nucleated RBC % 0.2 Sodium 133 Potassium 3.8 Chloride 97 L Carbon Dioxide 21.0 Anion Gap 15 BUN 24 H Creatinine 1.28 H Estim Creat Clear Calc 29.72 L Est GFR (MDRD) Non-Af 45 L BUN/Creatinine Ratio 18.9 Glucose 135 H Lactic Acid 2.6 H* Calcium 9.0 Iron TIBC Iron Saturation Unsaturated IBC Ferritin Total Bilirubin 0.35 AST 16 ALT 8 Alkaline Phosphatase 88 Troponin T High Sens 30 H Troponin T Hi Sens 2 Hr Total Protein 6.4 Albumin 4.1 Globulin 2.4 Albumin/Globulin Ratio 1.7 Lipase 15 POC Glucose 121 H Blood Type Cancelled O POSITIVE Antibody Screen Cancelled NEGATIVE 04/18/25 20:29 WBC RBC Hgb Hct MCV MCH MCHC RDW Std Deviation RDW Coeff of David Plt Count MPV Immature Gran % (Auto) Neut % (Auto) Lymph % (Auto) [place] % (Auto) Eos % (Auto) Baso % (Auto) Absolute Neuts (auto) Absolute Lymphs (auto) Nucleated RBC % Sodium Potassium Chloride Carbon Dioxide Anion Gap BUN Creatinine Estim Creat Clear Calc Est GFR (MDRD) Non-Af BUN/Creatinine Ratio Glucose Lactic Acid Calcium Iron 16 L TIBC 372 Iron Saturation 4.0 L Unsaturated IBC 356 Ferritin 12 L Total Bilirubin AST ALT Alkaline Phosphatase Troponin T High Sens Troponin T Hi Sens 2 Hr 24 H Total Protein Albumin Globulin Albumin/Globulin Ratio Lipase POC Glucose Blood Type Antibody Screen EKG Initial EKG: Attestation: I personally reviewed and interpreted this EKG as follows: Interpretation: Sinus Rhythm (Rate is 68. ME interval is 102 ms. Cures duration 82 ms. QT duration 456 ms. QTc is prolonged at 484 ms. [place] is normal. There is no acute ischemic changes noted.) Management Discussion w/another healthcare provider: Hospitalist (Evening hospitalist was paged. Patient will need admission with further workup. She did not receive blood in the emergency department.) Discharge Plan Dx/Rx/DC Orders Clinical Impression: Acute hypotension, Orthostatic hypotension, Acute on chronic anemia, Microcyticanemia, Signs and symptoms of anemia, Symptomatic anemia, 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 seenon desk monitor Disposition Disposition: [facility] Discharge Date/Time: 04/18/25 21:33 What to do if you have Problems For any increased pain, shortness of breath, bleeding, nausea or vomiting, chestpain, or any unexpected problems, contact your Primary Care Provider. Call [facility] ([phone]) or report to the closest Emergency Room. Call 911 if necessary. 04/18/252245 <Electronically signed by Jeffy Willoughby MD> Cosigner Signature (if applicable): CC: Dr. Daron Benton MD ~ Signed [facility] Work Phone: [phone] 936-253905-30-2025 Radiology Diagnostic study note [facility] Imaging Services [address] [place] [address] [id number] Acute Abdomen Inc Chest MR#: [id number] Acct: [id number] Name: ANGÉLICA YO Rep #: [id number] : 1955 F 69 From: Garo Bautista MD PCP: Dr. Daron Benton MD Status: REG ER Study:Acute Abdomen Inc Chest Date of Exam: 04/17/25 Exam# [id number] Ordering Dr: Kari Haynes DO PROCEDURE: ACUTE ABDOMEN INC CHEST 04/17/2025 REASON FOR EXAM: ABD PAIN TECHNIQUE: Single view chest with supine and upright views of the abdomen. COMPARISON: 04/02/2025 CT. 01/10/2025 radiograph. FINDINGS: Hardware: Bilateral iliac stents. Heart: Cardiac and mediastinal contours are stable. Lungs: The lungs are clear. Bowel gas: Bowel gas pattern is remarkable for mild constipation. No evidence ofbowel obstruction. Free air: No free air. Calcifications: No suspicious calcifications. Bones: There are degenerative changes of the spine. RAD/Acute Abdomen Inc Chest IMPRESSION: Constipation. Reading Location: [id number] CC: Dr. Daron Benton MD; Yasmani Haynes DO ~ Dispatch Coordinator: Signed [facility]05-21-2025 History of Present illness Narrative* Lizz Lynn, ANTWON - DISASTER RESPONSE DIRECTOR - 04/08/2025 2:30 PM EDT Visit type: Established Patient Reason for Visit: Follow-up and Multiple Sclerosis (/) Assessment and Plan 1. Multiple sclerosis (HCC) 2. Dysphasia Subjective HPI: Patient phoned in 3 days ago stating MS flare - affecting speech, swallowing, and VOSS. Went to [facility] about 1 week ago; according to note in care everywhere she presented with generalized weaknessand N/V; she was given 60mg Solum-medrol IV. Electrolytes NL She wasn't able to give a urine sample She wanted to be discharged from ED without further observation Prior to going to the ED, she saw PCP - she states he also gave her steroid injection and prednisone tabs (according to dispense report she was given methylprednisolone 4mg 03/13/25) Today, patient states she is still having symptoms of trouble swallowing (difficulty taking liquidsand drooling) and difficulty walking since February. States when weather warms up, she has MS flare - N/V and loss of balance are her typical MS symptoms Received CT scan at [facility] that she states was normal REVIEW- MS- not on DMT Copaxone caused shortness of breath Frequent URI (avoid ocrevus, tysabri, kesimpta) Fatigue with aubagio and tecfidera Interferons make her sick Currently on baclofen 20mg TID Gabapentin 800mg TID Follows with pain management and hospice Follows with Dr. Barnett (vascular surgeon) for vascular issues Carotid study May 2021-Right ICA >70%, Left 50-69% REVIEW OF SYSTEMS: Review of Systems HENT: Positive for trouble swallowing. Gastrointestinal: Positive for nausea. Neurological: Positive for weakness. Allergies[1] Current Medications[2] Medical History[3] Social History Tobacco Use Smoking status: Every Day Current packs/day: 0.25 Types: Cigarettes Smokeless tobacco: Never Substance Use Topics Alcohol use: Not Currently Surgical History[4] Family History[5] Objective Vitals: BP (!) 151/88 (BP Location: Left arm, Patient Position: Sitting, BP Cuff Size: Adult) Pulse 66 Ht 5' 6 (1.676 m) Wt 108 lb 9.6 oz (49.3 kg) BMI 17.53 kg/m General Appearance: Patient is in no [...] X, XI, XII examined and were intact. Motor: Strength: Strength 5 out of 5 with normal tone, except 4/5 bilateral hip and knee; 4+/5 bilateral ankles Alternating Movements: Normal Cogwheel Rigidity: None Tone: Tone is normal Tremor / Involuntary Movements: None Deep Tendon Reflexes: 1 out of 4 symmetrical in all four limbs. Sensory: Normal sensation upper and lower extremities Coordination: Normal coordination upper and lower extremities Gait and Station: Station is weak; Gait - uses rolator but ambulating well Data Reviewed and Summarized DIAGNOSTIC TESTING CBC: [...] 04/04/2023 [APTT} FLP: No results found for: CHLPL, TRIG, HDL, LDLCALC, LDLDIRECT TSH: No results found for: TSH VITAMIN B12: No results found for: [id number] No results found for: PHENYTOIN, PHENOBARB, VALPROATE, CBMZ No components found for: TOPIRA @RESULTINGLABINFO@ No results found for: LEVETIRACETA, FERRITIN, CRP, DENNIS, ANCA No results found for: CHRISTIANO, IMMUNOGLOBUL, OLIGOBANDS No results found for: [id number], HEPCAB No results found for: CRP, ANATITER, ANCA FERRITIN: No results found for: FERRITIN ---- ECG 12 lead SINUS BRADYCARDIA PROBABLE LEFT ATRIAL ABNORMALITY No previous ECG available for comparison Electronically Signed On 04-05-2023 7:42:10 EDT by Juvenal Benton @[email or web address]@ IMPRESSION and PLAN: Problem List Items Addressed This Visit None Visit Diagnoses Multiple sclerosis (HCC) - Primary Dysphasia She has received methylprednisolone and solumedrol IV with no improvement in difficulty swallowing.She is not weaker on exam today than in February. It is medically necessary for her to have the MRI brain that I ordered in February (for new cognitive issues) to ensure her new issues with dysphasia are not d/t stroke or to see if new NS lesions. Rto as scheduled in May, Lizz Lynn APRN - DISASTER RESPONSE DIRECTOR, furnish ongoing care related to Angélica Yo single, serious andcomplex condition(s) I assume responsibility for the patient's ongoing medical care of this condition. ANTWON Harrington CNP Electronically signed by ANTWON Harrington CNP on @TDNR@ at @NOWNR@ [1] Allergies Allergen Reactions Antihistamines, Diphenhydramine-Type Clopidogrel Other reaction(s): Other: See Comments Heartburn Codeine nausea Fenofibrate Other reaction(s): Intolerance Fentanyl Other reaction(s): Other: See Comments Sweating/ Flushing Morphine nausea and vomiting Prednisone Destroyed bone. Salicylates Amitriptyline Rash [2] Current Outpatient Medications: baclofen (Lioresal) 20 MG tablet, Take 1 tablet (20 mg) by mouth 3 times daily., Disp: 90 tablet, Rfl: 3 cholecalciferol (Vitamin D-3) 125 MCG (5000 UT) capsule, Take 125 mcg by mouth in the morning., Disp: , Rfl: clopidogrel (Plavix) 75 MG tablet, , Disp: , Rfl: gabapentin (Neurontin) 800 MG tablet, Take 1 tablet (800 mg) by mouth 3 times daily., Disp: 90 tablet, Rfl: 2 levothyroxine (Synthroid, Levoxyl) 50 MCG tablet, , Disp: , Rfl: lisinopril 10 MG tablet, Take 10 mg by mouth daily., Disp: , Rfl: metoprolol succinate XL (Toprol-XL) 25 MG 24 hr tablet, Take 25 mg by mouth in the morning., Disp: , Rfl: oxyCODONE (Roxicodone) 10 MG immediate release tablet, Take 10 mg by mouth 3 times daily as needed., Disp: , Rfl: [3] Past Medical History: Diagnosis Date Aneurysm (HCC) CAD (coronary artery disease) Carotid stenosis Multiple sclerosis (HCC) [4] Past Surgical History: Procedure Laterality Date CAROTID ENDARTERECTOMY [5] No family history on file. documented in this [facility]05-21-2025 Instructions* Patient Instructions* ANTWON Harrington CNP - 04/08/2025 2:30 PM EDT Please call [facility] [phone] to schedule the MRI brain before 05/03/25 - this is when the authorization for the MRI expires documented in this [facility]05-15-2025 Radiology Diagnostic study [facility]05-15-2025 Discharge summary Author Nuno Grider [facility] Note Date/Time April 02, 2025 11:43 pm [facility] Medical Records Department [address] [place] [address] Emergency Department Summary 04/02/25 MR#: [id number] Acct: [id number] Name: ANGÉLICA YO Rep #:[id number] : 1955 69 From: Nuno Grider MD PCP: Dr. Daron Benton MD Status:REG ER Location: ED HPI History of Present Illness Chief Complaint: General Illness Narrative Narrative: 69-year-old female past medical history of multiple sclerosis, lives alone, presents with nausea and vomiting as well as generalized weakness consistent with her previous MS flares. She denies any fevers or chills. Today she developed abdominal pain as well as nausea and vomiting which is consistent withher MS flares. She states that her primary care provider, Dr. Daron Benton, put her on oral prednisone for an MS flare that she was experiencing approximately 2weeks ago. She finished her steroids about a week ago and now over the last fewdays has felt generalized weakness as well as the nausea and vomiting and abdominal pain. She states she usually gets Solu-Medrol although she lists corticosteroids as an allergy with upset stomach. She denies any exacerbating or alleviating factors. [facility] Medical History Hypertensive emergency NSTEMI, initial episode of care Emphysema of lung Smoking greater than 30 pack years New onset atrial fibrillation [place] (dyspnea on exertion) Atherosclerotic heart disease of [place] coronary artery without angina pectoris Cardiac murmur Elevated troponin Mitral stenosis Chronic low back pain Diastolic hypertension Chest pain Nicotine dependence, cigarettes, uncomplicated Elevated troponin Depression On home oxygen therapy Atrial fibrillation PAF (paroxysmal atrial fibrillation) Atrial fibrillation Hypothyroidism Smoker Coronary artery disease TIA (transient ischemic attack) Influenza A Nonsustained paroxysmal supraventricular tachycardia Multiple sclerosis Nonobstructive atherosclerosis of coronary artery Peripheral vascular occlusive disease Essential (primary) hypertension Bilateral carotid artery stenosis History of transient ischemic attack (TIA) Fatty liver Thrombocytopenia GERD (gastroesophageal reflux disease) Psoriatic arthritis Psoriasis Osteoporosis Osteoarthritis Goiter Multiple sclerosis HLD (hyperlipidemia) Angina pectoris Chronic pain syndrome Home Medications ?Medication ?Instructions ?Recorded ?Last Taken ?Type cholecalciferol (vitamin D3) 125 5,000 unit PO DAILY s upplement 12/16/13 03/19/25 History mcg (5,000 unit) tablet gabapentin 800 mg tablet 800 mg PO TID MS 07/16/18 History baclofen 20 mg tablet 20 mg PO Q6H MS 08/11/2112/13 History levothyroxine 50 mcg tablet 50 mcg PO DAILY thyroid 03/19/25 History oxycodone 10 mg tablet 10 mg PO Q6H PRN pain 12/01/23 History dextromethorphan-guaifenesin ER 60 1 tab PO Q12H PRN c ough/congest 02/19/24 03/19/25 History mg-1,200 mg tab,extend release,12hr (Mucinex DM) famotidine 40 mg tablet 40 mg PO QDAY PRN indigestio n 11/24/24 03/19/25 History lisinopril 10 mg tablet 10 mg PO BID blood pressure 11/24/24 03/19/25 History aspirin 81 mg tablet,delayed 81 mg PO BREAKFAST heart health 12/11/24 03/19/25 Rx release #30 tabs ipratropium bromide 42 mcg (0.06 2 spray intranasal TI D #15 mL 12/24/24 03/19/25 Rx %) nasal spray amlodipine 5 mg tablet (Norvasc) 2.5 mg (1/2 x 5 mg) P O QDAY #90 01/13/25 03/19/25 Rx tabs carvedilol 3.125 mg tablet 3.125 mg PO BIDCM #180 tabs 03/03/25 03/19/25 Rx apixaban 5 mg tablet (Eliquis) 5 mg PO Q12H anticoagul ation #180 03/09/25 03/19/25 Rx tabs Allergy/AdvReac Type Severity Reaction Status Date / Time colestipol (From Colestid) Allergy Mild unknown Verified 04/02/25 19:26 pregabalin (From Lyrica) Allergy Mild Hives Verified 04/02/25 19:26 amitriptyline Allergy Rash Verified 04/02/25 19:26 temazepam (From Restoril) AdvReac Mild Nausea/Vom/ Verified 04/02/25 19:26 Diarrhea Antihistamines - Alkylamine AdvReac Nausea/Vom/ Verified 04/02/25 19:26 Diarrhea Antihistamines - Ethanolamine AdvReac Nausea/Vom/ Verified 04/02/25 19:26 Diarrhea Antihistamines - AdvReac Nausea/Vom/ Verified 04/02/25 19:26 Ethylenediamine Diarrhea Antihistamines - Piperazine AdvReac Nausea/Vom/ Verified 04/02/25 19:26 Diarrhea Antihistamines - Piperidine AdvReac Nausea/Vom/ Verified 04/02/25 19:26 Diarrhea aspirin AdvReac I'M ON Verified 04/02/25 19:26 BLOOD THINNERS codeine AdvReac Nausea Verified 04/02/25 19:26 Corticosteroids AdvReac Upset Verified 04/02/25 19:26 (Glucocorticoids) Stomach morphine AdvReac Nausea Verified 04/02/25 19:26 Xfbhnkx-CWS-OcQ Reductase AdvReac Nausea Verified 04/02/25 19:26 Inhibitor (Bntwtyq-Ybd-Sej Reductase Inhibitor) Family History Mother Cancer CAD (coronary artery disease) Brain tumor Grandfather CVA (cerebral vascular accident) Father CAD (coronary artery disease) Ruptured abdominal aortic aneurysm (AAA) Sister Brain aneurysm Surgical History History of coronary artery stent placement History of appendectomy History of cholecystectomy History of angioplasty of peripheral vessel (07/11/19) Stenosis of left subclavian artery History of left heart catheterization (01/25/15) S/P coil embolization of cerebral aneurysm History of angioplasty of peripheral vessel History of right-sided carotid endarterectomy History of left-sided carotid endarterectomy History of partial thyroidectomy (11/30/05) History of hemorrhoidectomy History of hysterectomy History of section Brain aneurysm Fracture of right lower leg S/P insertion of iliac artery stent History of left breast biopsy H/O hemorrhoidectomy S/P hysterectomy H/O: S/P thyroidectomy Social History household members: none housing: apartment Smoking Status: Light Smoker (<10/day) alcohol intake: never caffeine: Yes Type: coffee and tea ROS ROS ED ROS Narrative Review of systems positive for generalized weakness and difficulty ambulating. Positive nausea and vomiting. Positive diffuse abdominal pain. No fevers or chills. No chest pain or shortness of breath. EXAM Physical Exam Narrative Exam Narrative: Afebrile. Vital signs noted. Nontoxic-appearing. Cardiovascular examination reveals a regular rate and rhythm. Lungs are clear to auscultation bilaterally. Abdomen is soft, nontender, with positive bowel sounds. No guarding or rebound. Neurological examination is nonfocal, nonlateralizing. Mildly flat affect. Moves all extremities. Const Vital Signs: 04/02/25 19:12 04/02/25 19:21 04/02/25 19:31 Temperature 97.8 F 97.6 F L 97.6 F L Temperature Source Oral Oral Oral Pulse Rate 71 60 64 Respiratory Rate 12 18 18 Blood Pressure 150/53 H 140/60 H 161/58 H Blood Pressure Mean 85 86 92 Pulse Ox 99 99 100 Oxygen Delivery Method Room Air Room Air Room Air 04/02/25 20:25 04/02/25 21:25 04/02/25 22:25 Temperature 97.9 F 97.8 F 98.1 F Temperature Source Oral Oral Oral Pulse Rate 60 67 73 Respiratory Rate 18 18 18 Blood Pressure 136/88 H 139/63 H 105/79 Blood Pressure Mean 104 88 87 Pulse Ox 100 100 100 Oxygen Delivery Method Room Air Room Air Room Air MDM MDM MDM Narrative Medical decision making narrative: Differential diagnosis includes but not limited to MS flare versus generalized weakness from infectious cause including UTI versus dehydration versus other electrolyte abnormality. I have low suspicion for pneumonia because she has no cough or shortness of breath. Comprehensive workup was pursued. I did review her prior ED visits. She is coming with various complaints recently including chest pain, but at one time in 2021, she was having an MS flare and she was given steroids, and wanted to go home. Currently she is agreeable to at least observation as she lives alone. Workup was pursued to look for infectious causeof her generalized weakness. She was given 60 mg of Solu-Medrol intravenously. Given her abdominal pain, nausea and vomiting, pancreatitis is also in the differential diagnosis as well as small bowel obstruction. I do feel CT imagingis indicated as well as lipase. I obtained an EKG and interpreted independentlyas normal sinus rhythm at 64 bpm without ectopy or acute ST changes. No STEMI. I do not feel that she needs cardiac enzymes as she is not having chest pain. I reviewed her laboratory work and she has a WBC count of 5.9, hemoglobin 8.8, when compared to prior labs while she has had anemia before, this is a drop whencompared to labs performed in December, approximately 3 months ago. Platelet count normal at 154. Electrolyte panel significant for BUN of 27 and creatinine1.23, glucose appropriately elevated at 129 with a normal anion gap of 13. LFTsunremarkable. Lipase normal at 23 so I doubt pancreatitis as a cause of her nausea and vomiting. She does state that the nausea and vomiting and abdominal pain is sometimes exacerbation of her multiple sclerosis. Urology report of theCT of the abdomen and pelvis and it shows no acute process but a large colonic stool burden. At this point in time, her urinalysis is still pending but I willdiscuss patient with Dr. Terry because I feel that she requires observation as she lives at home alone. However, I was informed by the RN that the patient wanted her IV removed and would like to go home. She states that her son is coming to get her and will stay with her overnight. She feels that this is her MS flare, and she would like to go home and follow-up with her neurologist. She may require IV steroidsfor a few days which she states is usually taking care of by him. Once again, Idiscussed with her [id number]-sbgd if she would like to be observed, but she declined stating that her son is coming to get her and will stay with her overnight. I find this acceptable as I reviewed her prior charts and she has done this in the past where she does not want to be observed or admitted to the hospital. Additionally, she does not want to wait for the urinalysis and feels that her urine is not infected. This is because she is not having dysuria or hematuria. As long as she has someone with her, I feel she can be discharged tofollow-up. Return instructions were reviewed. Disposition is discharged home in stable condition. History & Record Review Discussion w/independent historian: Patient Additional record(s) reviewed:: Prior ED visit Lab Data Attestation: I reviewed the patient's lab results. Labs: Laboratory Results - last 24 hr 04/02/25 19:50 WBC 5.9 RBC 3.41 L Hgb 8.8 L Hct 28.2 L MCV 82.7 MCH 25.8 L MCHC 31.2 L RDW Std Deviation 49.7 H RDW Coeff of David 16.5 H Plt Count 154 MPV 9.7 Immature Gran % (Auto) 0.500 Neut % (Auto) 80.4 H Lymph % (Auto) 10.5 L [place] % (Auto) 6.6 Eos % (Auto) 1.5 Baso % (Auto) 0.5 Absolute Neuts (auto) 4.7 Absolute Lymphs (auto) 0.62 L Nucleated RBC % 0 Sodium 138 Potassium 4.0 Chloride 102 Carbon Dioxide 23.7 Anion Gap 13 BUN 27 H Creatinine 1.23 H Estim Creat Clear Calc 34.53 L Est GFR (MDRD) Non-Af 47 L BUN/Creatinine Ratio 22.3 H Glucose 129 H Calcium 9.6 Total Bilirubin 0.22 AST 16 ALT 14 Alkaline Phosphatase 87 Total Protein 6.7 Albumin 4.2 Globulin 2.5 Albumin/Globulin Ratio 1.7 Lipase 23 Radiography Diagnostic Testing: Clinical Impression(s) from Imaging Studies Abdomen/Pelvis CT 04/02/25 19:30 IMPRESSION: No acute findings in the abdomen and pelvis. Large colonic stool. Reading Location: [facility] Management Discussion w/another healthcare provider: Hospitalist (Dr. Terry) Discharge Plan Triage Chief Complaint: General Illness ED Provider: Nuno Grider Dx/Rx/DC Orders Clinical Impression: Multiple sclerosis, Anemia, Abdominal pain, Nausea and vomiting, Generalized weakness Instructions: Multiple Sclerosis Dc, ED Abdominal Pain Unkn Cause Fem, ED Vomiting (Adult), ED Weakness Uncertain Cause Prescriptions: No Action gabapentin 800 mg tablet 800 mg PO TID baclofen 20 mg tablet 20 mg PO Q6H levothyroxine 50 mcg tablet 50 mcg PO DAILY Patient Comments: take 1 tablet by mouth once daily oxycodone 10 mg tablet 10 mg PO Q6H PRN Patient Comments: take 1 tab q6 PRN for pain famotidine 40 mg tablet 40 mg PO QDAY PRN (Reason: indigestion) lisinopril 10 mg tablet 10 mg PO BID ipratropium bromide 42 mcg (0.06 %) spray,non-aerosol 2 spray intranasal TID Qty: 15 0RF Rx Instructions: administer into each nostril cholecalciferol (vitamin D3) 5,000 UNIT tablet 5,000 unit PO DAILY Patient Comments: supplement dextromethorphan-guaifenesin [Mucinex DM] 60-1,200 mg tablet extended release 12 hr 1 tab PO Q12H PRN (Reason: cough/congest) aspirin 81 mg Tablet,Delayed Release (Dr/Ec) 81 mg PO BREAKFAST Qty: 30 2RF amlodipine [Norvasc] 5 mg tablet 2.5 mg PO QDAY Qty: 90 3RF carvedilol 3.125 mg tablet 3.125 mg PO BIDCM Qty: 180 3RF Eliquis 5 mg tablet 5 mg PO Q12H Qty: 180 3RF Primary Care Provider: Daron Benton Referrals: Daron Benton MD [Primary Care Provider] - 1-2 Days if not improving Activity Restrictions/Additional Instructions: Follow-up with your neurologist within the next 1 to 2 days. Return with increased weakness, fever, new or worsening symptoms. Print Language: Citizen Of [place] Disposition Disposition: Home, Self Care What to do if you have Problems For any increased pain, shortness of breath, bleeding, nausea or vomiting, chestpain, or any unexpected problems, contact your Primary Care Provider. Call [facility] ([phone]) or report to the closest Emergency Room. Call 911 if necessary. 04/02/25 [id number] <Electronically signed by Nuno Grider MD> Cosigner Signature (if applicable): CC: Dr. Daron Benton MD ~ Signed [facility] Work Phone: [phone]) 342-883505-15-2025 Hospital Discharge instructions Additional Instructions Follow-up with your neurologist within the next 1 to 2 days. Return with increased weakness, fever, new or worsening symptoms.[facility] Work Phone: [phone]) 828-935604-21-2025 Telephone encounter Note* Telephone Encounter - Maeve Jacobson - 03/09/2025 11:40 AM EDT Order re faxed to [phone] [facility]. [id number] Miscellaneous Notes* Telephone Encounter - Maeve Prospect - 03/09/2025 11:40 AM EDT Order re faxed to [phone] [facility]. * Telephone Encounter - Maria Antonia Kelly - 03/09/2025 11:11 AM EDT Name of caller: Kody Contact phone number: [phone] Relationship to Patient: [facility] Provider: AURORA Lynn Practice: [facility] [place] Chief Complaint/Reason for Call: Kody called in requesting patient's MRI order be faxed over to them at fax # [phone]. Please be advised Best time of day caller can be reached: Any Patient advised that office/PCP has 24-48 business hours to return their call: N/A documented in this [facility]04-21-2025 Telephone encounter Note* Telephone Encounter - Maria Antonia Kelly - 03/09/2025 11:11 AM EDT Name of caller: Kody Contact phone number: [phone] Relationship to Patient: [facility] Provider: AURORA Lynn Practice: [facility] Chief Complaint/Reason for Call: Kody called in requesting patient's MRI order be faxed over to them at fax # [phone]. Please be advised Best time of day caller can be reached: Any Patient advised that office/PCP has 24-48 business hours to return their call: N[id number] History of Present illness Narrative* Lizz Lynn, SALES [employer]CH[employer] ASSOCIATE - DISASTER RESPONSE DIRECTOR - 03/04/2025 10:30 AM EDT Visit type: Established Patient Reason for Visit: Follow-up and Multiple Sclerosis Assessment and Plan 1. Multiple sclerosis (HCC) 2. Mild cognitive impairment Subjective HPI: MS- not on DMT Copaxone caused shortness of breath Frequent URI (avoid ocrevus, tysabri, kesimpta) Fatigue with aubagio and tecfidera Interferons make her sick Currently on baclofen 20mg TID Gabapentin 800mg TID Was taken off duloxetine about 6 mos ago when hospitalized for low blood counts Still follows with pain management and hospice Follows with Dr. Barnett (vascular surgeon) for vascular issues Carotid study May 2021-Right ICA >70%, Left 50-69% Denies trouble swallowing/choking Had a fall recently; tripped; did not hit head Notes memory is getting worse; can't remember people's names; trouble getting words out; x last 6 mos Onset Gradual? Intermittent x 6 mos Age over 65? No Alzheimer's Dementia? No Short term memory loss for facts (declarative) while distant memories are spared? yes Difficulty with word finding of familiar words? yes Difficulty with drawing, buttoning shirts, constructing models, making a bed, and putting together something that is unassembled? No Changes in personality, behavior, or comportment? Yes Difficulty with executive functioning? No Making plans? No Keeping track of time and finishing tasks on time? No Meaningfully include past knowledge in discussions? No Ask for help or seek information when needed? No Telling stories with details in an organized, sequential manner? No Prior history of Parkinson's Disease (Parkinson's Disease relate Dementia)? No Associated with impairment in attention fluctuating during the day or from day to day? yes Associated with impairment in tasks requiring construction (visuospatial orientation or perception)? No Associated with impairment in recall of recent events? No Associated with apathy? yes Associated with depressive mood changes and anxiety? yes Associated with hallucinations of people, animals or objects? No Associated with excessive daytime sleepiness? No Associated with delusions? No Associated with parkinsonism bradykinesia, tremor, rigidity, or gait changes (Lewy Body Disease)? No Cognitive impairment (similar to above)? No Hallucinations? No H/o acting out dreams? No Fluctuations in attention? No Orthostasis? No Age under 65? No Frontal temporal dementia? No Behavioral variant? No Associated with hallucinations? No Associated with socially inappropriate behavior, loss of manners or decorum? No Associated with impulsivity, rashness, or careless actions? No Associated with apathy, loss of initiative? yes Associated with binge eating, binge drinking, binge smoking? No Associated with repetitive movements or repeating the same words over and over? No Semantic Variant? No Impaired object naming? No Impaired single-word comprehension? No Difficulty reading or writing? No No trouble repeating? Yes No trouble with speaking clearly or with proper grammar? Yes Nonfluent Agrammatic Variant? No Effortful, halting speech with inconsistent sound errors and distortion? No Impaired comprehension of syntactically complex sentences? No Spared single-word comprehension? No Spared object knowledge? No Corticobasal Degeneration? No Asymmetric limb rigidity, akinesia, dystonia, or myclonus? No Orobuccal or limb apraxia? No Cortical sensory deficit? No Alien limb phenomenon? No Progressive Supranuclear Palsy? No Falls or postural instability? No Urinary incontinence? No Behavioral changes? No Onset Sudden? No Associated with head trauma? No Associated with TIA or Stroke symptoms? yes Associated with infection? No Associated with auto-immune disease? MS Associated with drug or medication? No Associated with tumor or treatment of tumor? No Associated with diet change or gastric bypass? No Associated with depression, anxiety, psychosis, or other psychiatric disease? Depression Associated with seizures? No REVIEW OF SYSTEMS: Review of Systems Musculoskeletal: Positive for arthralgias. Neurological: Memory issues Allergies Allergen Reactions Antihistamines, Diphenhydramine-Type Clopidogrel Other reaction(s): Other: See Comments Heartburn Codeine nausea Fenofibrate Other reaction(s): Intolerance Fentanyl Other reaction(s): Other: See Comments Sweating/ Flushing Morphine nausea and vomiting Prednisone Destroyed bone. Salicylates Amitriptyline Rash Current Outpatient Medications: baclofen (Lioresal) 20 MG tablet, take 1 tablet by mouth every 8 hours if needed muscle spasm, Disp: 90 tablet, Rfl: 1 cholecalciferol (Vitamin D-3) 125 MCG (5000 UT) [...] mg by mouth daily., Disp: , Rfl: metoprolol succinate XL (Toprol-XL) 25 MG 24 hr tablet, Take 25 mg by mouth in the morning., Disp: , Rfl: oxyCODONE (Roxicodone) 10 MG immediate release tablet, Take 10 mg by mouth 3 times daily as needed., Disp: , Rfl: predniSONE (Deltasone) 20 MG tablet, Take 5 tablets on day one, 4 tablets on day 2, 3 tablets on days 3, 2 tablets on day 4, then 1 tablet on day 5 No refills, Disp: 15 tablet, Rfl: 0 DULoxetine (Cymbalta) [address] capsule, take 1 capsule by mouth once daily DO NOT CRUSH OR CHEW (Patient not taking: Reported on 03/04/2025), Disp: 90 capsule, Rfl: 2 Past Medical History: Diagnosis Date Aneurysm (HCC) CAD (coronary artery disease) Carotid stenosis Multiple sclerosis (HCC) Social History Tobacco Use Smoking status: Every Day Current packs/day: 0.25 Types: Cigarettes Smokeless tobacco: Never Substance Use Topics Alcohol use: Not Currently Past Surgical History: Procedure Laterality Date CAROTID ENDARTERECTOMY No family history on file. Objective Vitals: BP 139/75 (BP Location: Right arm, Patient Position: Sitting, BP Cuff Size: Adult) Pulse 64 Ht 5' 6 (1.676 m) Wt 113 lb 9.6 oz (51.5 kg) BMI 18.34 kg/m General Appearance: Patient is in no apparent distress. Head is normocephalic, atraumatic Cardiovascular: Regular rate and rhythm. No heart murmurs. No carotid bruit Neurologic: Mentation: Alert and oriented x [address], place and time. Speech and Language: Speech and language normal Concentration and Attention: Concentration normal Memory: Memory MOCA Blind - (did not bring glasses) Fund of Knowledge: Fund of knowledge normal Cranial Nerves: II, III, IV, V, , VII, VIII, IX, X, XI, XII examined and were intact. EOM- maybe slight right gaze restriction on the right eye Motor: Strength: Strength 4/5 bilateral upper extremities; 3+/5 bilateral lower extermities - hips, kness, ankles Alternating Movements: Normal Cogwheel Rigidity: None Tone: Tone is normal Tremor / Involuntary Movements: None Deep Tendon Reflexes: 1 out of 4 symmetrical in all four limbs. Coordination: Normal coordination upper and lower extremities Gait and Station: Station is weak. Gait - uses rolator Data Reviewed and Summarized DIAGNOSTIC TESTING CBC: [...] 04/04/2023 [APTT} FLP: No results found for: CHLPL, TRIG, HDL, LDLCALC, LDLDIRECT TSH: No results found for: TSH VITAMIN B12: No results found for: [id number] No results found for: PHENYTOIN, PHENOBARB, VALPROATE, CBMZ No components found for: TOPIRA @RESULTINGLABINFO@ No results found for: LEVETIRACETA, FERRITIN, CRP, DENNIS, ANCA No results found for: CHRISTIANO, IMMUNOGLOBUL, OLIGOBANDS No results found for: KAV57LD, HEPCAB No results found for: CRP, ANATITER, ANCA FERRITIN: No results found for: FERRITIN ---- ECG 12 lead SINUS BRADYCARDIA PROBABLE LEFT ATRIAL ABNORMALITY No previous ECG available for comparison Electronically Signed On 04-05-2023 7:42:10 EDT by Juvenal Benton @[email or web address]@ IMPRESSION and PLAN: Problem List Items Addressed This Visit None Visit Diagnoses Multiple sclerosis (HCC) - Primary Mild cognitive impairment Stable. Continue baclofen 20mg TID, gabapentin 800mg TID New in last 6mos; it is medically necessary for her to have MRIbrain to look for stroke or other cause; EEG, and labs RTO 3 mos I, ANTWON Harrington CNP, furnish ongoing care related to Angélica Yo single, serious andcomplex condition(s) multiple sclerosis. I assume responsibility for the patient's ongoing medical care of this condition. ANTWON Harrington CNP Electronically signed by ANTWON Harrington CNP on @TDNR@ at @NOWNR@ documented in this [facility]04-04-2025 Evaluation note* Diagnosis Onset Date Resolution Status Admit Date Mitral stenosis acute February 1:14pm NSTEMI (non-ST elevated myocardial infarction) acute February 1:14pm Bilateral carotid artery stenosis chronic February 20, 2025 1:14pm Essential (primary) hypertension inactive February 20, 2025 1:14pm PAF (paroxysmal atrial fibrillation) inactive February 20, 2025 1:14pm Peripheral vascular occlusiv e disease inactive February 20, 2025 1:14pm Acute on chronic anemia resolved M ay 2024 9:20pm Microcytic anemia resolved March 9:20pm Orthostatic hypotension resolved M ay 2024 9:20pm Signs and symptoms of anemia resolve d April 18, 2025 9:20pm 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 desk monitor resolved April 18, 2025 9 :20pm Symptomatic anemia resolved April 182024 9:20pm Anemia acute May 06 2:10pm Constipation acute May 06 2:10pm [facility] Work Phone: 1(662) 573-474002-25-2025 [facility]02-23-2025 Evaluation note* Diagnosis Onset Date Resolution Status Admit Date Atherosclerotic heart diseas e of [place] coronary artery without angina pectoris inactive January 10, 2025 11:45pm Brain aneurysm inactive December 212024 11:45pm Cardiac murmur inactive December 212024 11:45pm TOLEDO (dyspnea on exertion) inactive January 10, 2025 11:45pm Elevated troponin inactive 2024 11:45pm Emphysema of lung inactive 2024 11:45pm Hypertensive emergency inactive Fe bruary 2024 11:45pm New onset atrial fibrillation inacti ve January 10, 2025 11:45pm NSTEMI, initial episode of care inac tive January 10, 2025 11:45pm PAF (paroxysmal atrial fibrillation) inactive January 10 025 11:45pm Smoking greater than 30 pack years inactive January 10 11:45pm Mitral stenosis acute February 1:14pm NSTEMI (non-ST elevated myocardial infarction) acute February 1:14pm Bilateral carotid artery stenosis chronic February 20, 2025 1:14pm Essential (primary) hypertension inactive February 20, 2025 1:14pm PAF (paroxysmal atrial fibrillation) inactive February 20, 2025 1:14pm Peripheral vascular occlusiv e disease inactive February 20, 2025 1:14pm Acute on chronic anemia resolved M ay 2024 9:20pm Microcytic anemia resolved March 9:20pm Orthostatic hypotension resolved M ay 2024 9:20pm Signs and symptoms of anemia resolve d April 18, 2025 9:20pm 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 desk monitor resolved April 18, 2025 9 :20pm Symptomatic anemia resolved April 182024 9:20pm [place] [employer] Work Phone: 1(697) 691-147002-05-2025 Evaluation note* Diagnosis Onset Date Resolution Status Admit Date Ytaph-2-yhzkarbewsp deficien cy carrier acute December 24 1:52pm Hypoxemia chronic December 24, 2024 1:52pm Emphysema of lung inactive 2024 1:52pm Nicotine dependence, cigarettes, uncomplicated inactive 2024 1:52pm Smoking greater than 30 pack years inactive December 24 1:52pm Atherosclerotic heart diseas e of [place] coronary artery without angina pectoris inactive January 10, 2025 11:45pm Brain aneurysm inactive December 212024 11:45pm Cardiac murmur inactive December 212024 11:45pm TOLEDO (dyspnea on exertion) inactive January 10, 2025 11:45pm Elevated troponin inactive 2024 11:45pm Emphysema of lung inactive 2024 11:45pm Hypertensive emergency inactive Fe bruary 2024 11:45pm New onset atrial fibrillation inacti ve January 10, 2025 11:45pm NSTEMI, initial episode of care inac tive January 10, 2025 11:45pm PAF (paroxysmal atrial fibrillation) inactive January 10 11:45pm Smoking greater than 30 pack years inactive January 10 11:45pm Mitral stenosis acute February 1:14pm NSTEMI (non-ST elevated myocardial infarction) acute February 1:14pm Bilateral carotid artery stenosis chronic February 20, 2025 1:14pm Essential (primary) hypertension inactive February 20, 2025 1:14pm PAF (paroxysmal atrial fibrillation) inactive February 20, 2025 1:14pm Peripheral vascular occlusiv e disease inactive February 20, 2025 1:14pm Microcytic anemia acute March 9:20pm Orthostatic hypotension acute M ay 2024 9:20pm Signs and symptoms of anemia acute April 18, 2025 9:20pm 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 desk monitor acute April 18, 2025 9 :20pm Symptomatic anemia acute April 182024 9:20pm Acute on chronic anemia chronic M ay 2024 9:20pm [facility] Work Phone: 1(232) 974-955001-31-2025 Evaluation note* Diagnosis Onset Date Resolution Status Admit Date Mitral stenosis acute November 212024 1:16pm Bilateral carotid artery stenosis chronic December 19 1:16pm Essential (primary) hypertension inactive December 19 1:16pm PAF (paroxysmal atrial fibrillation) inactive December 19 1:16pm Peripheral vascular occlusiv e disease inactive December 19 1:16pm Xxmfa-3-rhrulvbdhxr deficien cy carrier acute December 24 1:52pm Hypoxemia chronic December 24, 2024 1:52pm Emphysema of lung inactive 2024 1:52pm Nicotine dependence, cigarettes, uncomplicated inactive 2024 1:52pm Smoking greater than 30 pack years inactive December 24 1:52pm Atherosclerotic heart diseas e of [place] coronary artery without angina pectoris inactive January 10, 2025 11:45pm Brain aneurysm inactive December 212024 11:45pm Cardiac murmur inactive December 212024 11:45pm TOLEDO (dyspnea on exertion) inactive January 10, 2025 11:45pm Elevated troponin inactive 2024 11:45pm Emphysema of lung inactive 2024 11:45pm Hypertensive emergency inactive Fe bruary 2024 11:45pm New onset atrial fibrillation inacti ve January 10, 2025 11:45pm NSTEMI, initial episode of care inac tive January 10, 2025 11:45pm PAF (paroxysmal atrial fibrillation) inactive January 10 11:45pm Smoking greater than 30 pack years inactive January 10 11:45pm Mitral stenosis acute February 1:14pm NSTEMI (non-ST elevated myocardial infarction) acute February 1:14pm Bilateral carotid artery stenosis chronic February 20, 2025 1:14pm Essential (primary) hypertension inactive February 20, 2025 1:14pm PAF (paroxysmal atrial fibrillation) inactive February 20, 2025 1:14pm Peripheral vascular occlusiv e disease inactive February 20, 2025 1:14pm [facility] Work Phone: 1(609) 426-477101-31-2025 Evaluation note* Diagnosis Onset Date Resolution Status Admit Date Mitral stenosis acute November 212024 1:16pm Bilateral carotid artery stenosis chronic December 19 1:16pm Essential (primary) hypertension inactive December 19 1:16pm PAF (paroxysmal atrial fibrillation) inactive December 19 1:16pm Peripheral vascular occlusiv e disease inactive December 19 1:16pm Hdtlp-3-wbribmzfblx deficien cy carrier acute December 24 1:52pm Hypoxemia chronic December 24, 2024 1:52pm Emphysema of lung inactive 2024 1:52pm Nicotine dependence, cigarettes, uncomplicated inactive 2024 1:52pm Smoking greater than 30 pack years inactive December 24 1:52pm Atherosclerotic heart diseas e of [place] coronary artery without angina pectoris inactive January 10, 2025 11:45pm Brain aneurysm inactive December 212024 11:45pm Cardiac murmur inactive December 212024 11:45pm TOLEDO (dyspnea on exertion) inactive January 10, 2025 11:45pm Elevated troponin inactive 2024 11:45pm Emphysema of lung inactive 2024 11:45pm Hypertensive emergency inactive Fe bruary 2024 11:45pm New onset atrial fibrillation inacti ve January 10, 2025 11:45pm NSTEMI, initial episode of care inac tive January 10, 2025 11:45pm PAF (paroxysmal atrial fibrillation) inactive January 10 11:45pm Smoking greater than 30 pack years inactive January 10 11:45pm Mitral stenosis acute February 1:14pm NSTEMI (non-ST elevated myocardial infarction) acute February 1:14pm Bilateral carotid artery stenosis chronic February 20, 2025 1:14pm Essential (primary) hypertension inactive February 20, 2025 1:14pm PAF (paroxysmal atrial fibrillation) inactive February 20, 2025 1:14pm Peripheral vascular occlusiv e disease inactive February 20, 2025 1:14pm Microcytic anemia acute March 9:19pm Orthostatic hypotension acute M ay 2024 9:19pm Signs and symptoms of anemia acute April 18, 2025 9:19pm 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 desk monitor acute April 18, 2025 9 :19pm Symptomatic anemia acute April 182024 9:19pm Acute on chronic anemia chronic M ay 2024 9:19pm [facility] Work Phone: 1(581) 378-973201-23-2025 [facility]01-21-2025 Evaluation note* Diagnosis Onset Date Resolution Status Admit Date Chest pain inactive December 09, 2024 2:32pm Chronic low back pain inactive Nov 2:32pm Diastolic hypertension inactive [facility] 2024 2:32pm Elevated troponin inactive December 09, 2024 2:32pm Nicotine dependence, cigarettes, uncomplicated inactive 2024 2:32pm Mitral stenosis acute November 212024 1:16pm Bilateral carotid artery stenosis chronic December 19 1:16pm Essential (primary) hypertension inactive December 19 1:16pm PAF (paroxysmal atrial fibrillation) inactive December 19 1:16pm Peripheral vascular occlusiv e disease inactive December 19 1:16pm Wytfj-1-oonouxojcut deficien cy carrier acute December 24 1:52pm Hypoxemia chronic December 24, 2024 1:52pm Emphysema of lung inactive 2024 1:52pm Nicotine dependence, cigarettes, uncomplicated inactive 2024 1:52pm Smoking greater than 30 pack years inactive December 24 1:52pm Atherosclerotic heart diseas e of [place] coronary artery without angina pectoris inactive January 10, 2025 11:45pm Brain aneurysm inactive December 212024 11:45pm Cardiac murmur inactive December 212024 11:45pm TOLEDO (dyspnea on exertion) inactive January 10, 2025 11:45pm Elevated troponin inactive 2024 11:45pm Emphysema of lung inactive 2024 11:45pm Hypertensive emergency inactive Fe bruary 2024 11:45pm New onset atrial fibrillation inacti ve January 10, 2025 11:45pm NSTEMI, initial episode of care inac tive January 10, 2025 11:45pm PAF (paroxysmal atrial fibrillation) inactive January 10 11:45pm Smoking greater than 30 pack years inactive January 10 11:45pm Mitral stenosis acute February 1:14pm NSTEMI (non-ST elevated myocardial infarction) acute February 1:14pm Bilateral carotid artery stenosis chronic February 20, 2025 1:14pm Essential (primary) hypertension inactive February 20, 2025 1:14pm PAF (paroxysmal atrial fibrillation) inactive February 20, 2025 1:14pm Peripheral vascular occlusiv e disease inactive February 20, 2025 1:14pm [facility] Work Phone: 1(802) 925-135201-02-2025 Telephone encounter Note* Telephone Encounter - Linda Glynn - 11/20/2024 2:41 PM EST Patient called in and scheduled a follow up for 12/08/24 11:30 AM. Please be advised. Medication name: baclofen (Lioresal) 20 MG tablet Medication dosage: 20 mg (Miligrams Monthly quantity needed: 90 How many day supply requestin days Medication route: oral (PO) Medication administration time(s): take 1 tablet by mouth every 8 hours if needed muscle spasm If taking medication PRN, reason for taking medication: N/A If this is a controlled substance do you receive this or any other controlled medication from any other doctor or facility: N/A Ordering provider: Lizz Lynn Date of last office visit: 12/14/23 Date of next office visit: 12/08/24 Date of last refill: (see medication tab): 09/15/24 Updated/Validated preferred pharmacy: [id number] [address] [facility] Patient instructed to contact the pharmacy prior to picking up the medication: Yes [id number] Miscellaneous Notes* Telephone Encounter - Linda Glynn - 11/20/2024 2:41 PM EST Patient called in and scheduled a follow up for 12/08/24 11:30 AM. Please be advised. Medication name: baclofen (Lioresal) 20 MG tablet Medication dosage: 20 mg (Miligrams Monthly quantity needed: 90 How many day supply requestin days Medication route: oral (PO) Medication administration time(s): take 1 tablet by mouth every 8 hours if needed muscle spasm If taking medication PRN, reason for taking medication: N/A If this is a controlled substance do you receive this or any other controlled medication from any other doctor or facility: N/A Ordering provider: Lizz Lynn Date of last office visit: 12/14/23 Date of next office visit: 12/08/24 Date of last refill: (see medication tab): 09/15/24 Updated/Validated preferred pharmacy: [id number] - [facility] [address] [place] [address] Patient instructed to contact the pharmacy prior to picking up the medication: Yes * Telephone Encounter - Nallely Zaragoza MA - 11/20/2024 2:22 PM EST Last ov-12/14/23 Next ov- N/A documented in this encounterSMercy [id number] Telephone encounter Note* Telephone Encounter - Nallely Zaragoza MA - 11/20/2024 2:22 PM EST Last ov-12/14/23 Next ov- N/A [id number] Telephone encounter Note* Telephone Encounter - Yanely Kwon MA - 09/15/2024 6:47 AM EDT Last ov- 12/14/23 Next ov- n/a [id number] Miscellaneous Notes* Telephone Encounter - Yanely Kwon MA - 09/15/2024 6:47 AM EDT Last ov- 12/14/23 Next ov- n/a documented in this [facility]04-08-2024 Discharge summary Author Eva Mortensen [facility] February 25, 2024 4:04pm Note Date/Time February 25, 2024 3:34 pm [facility] Medical Records Department [address] [place] [id number] Discharge Summary 02/25/24 1529 MR#: [id number] Acct: [id number] Name: ANGÉLICA YO Rep #:[id number] 0 : 1955 68 From: Eva Mortensen DO PCP: Dr. Daron Benton MD Status:[facility] Prov[facility] Date of Admission: 02/19/24 Date of Discharge: 02/25/24 Primary Care Physician: Dr. Daron Benton MD Consultations 02/19/24 16:58 Consult: Gastroenterology Routine Consulting Provider: [facility] Reason for Consult: GI bleed EMERGENT Consult: No MD Notified: Yes Date Notified: 02/19/24 Time Notified: 15:07 Method of Notification: Text Reason For Visit: ANEMIA, PNEUMONIA, CHF Diagnosis Discharge Diagnosis (1) Symptomatic anemia: Status: Acute Code(s): D64.9 - Anemia, unspecified Medications at Discharge Home Medications cholecalciferol (vitamin D3) 125 mcg (5,000 unit) tablet 5,000 unit PO DAILY supplement 12/16/13 gabapentin 800 mg tablet 800 mg PO TID MS 07/16/18 baclofen 20 mg tablet 20 mg PO Q6H MS 08/11/21 levothyroxine 50 mcg tablet 50 mcg PO DAILY thyroid 08/11/21 oxycodone 10 mg tablet 10 mg PO Q6H PRN pain 05/24/23 apixaban 5 mg tablet (Eliquis) 5 mg PO BID #60 tabs 01/11/24 dextromethorphan-guaifenesin ER 60 mg-1,200 mg tab,extend release,12hr (Mucinex DM) 1 tab PO Q12H PRN cough/congest 02/19/24 lisinopril 10 mg tablet 10 mg PO DAILY 02/19/24 amoxicillin 875 mg-potassium clavulanate 125 mg tablet 1 tab PO BID #4 tabs 02/25/24 pantoprazole 40 mg tablet,delayed release (Protonix) 40 mg PO BID #60 tabs 02/25/24 Hospital Course Procedures Blood transfusion, Colonoscopy, EGD, EKG and - (CTA chest/chest x-ray) Summary of Care Provided Minutes Spent on Discharge: 38 Hospital Course: Mrs. Yo is a 68-year-old white female who presented to the emergency department at [facility] on 02/19/2024 with lightheadedness. She does have a history of paroxysmal atrial fibrillation and is on systemic anticoagulation with apixaban at baseline. Patient reported on presentation shenot been feeling well for the past 2 days prior to presentation. On the day of admission she did experiencing some lightheadedness and she also broke out into a cold sweat and felt her blood pressure was elevated so she presented to the emergency department. Upon presentation she had a blood pressure of 80/51 but was on room air with sats at 94% and her heart rate was 95. Her CBC noted a normal white count but she did have an anemia with a hemoglobin of 6.6. She hada mild BUN elevation at 21 with a serum creatinine of 1.0 which is just slightlyworse than her baseline. Her electrolytes are unremarkable. Liver enzymes werenormal. Chest x-ray showed a right lower lobe infiltrate as well as some vascular congestion. CTA of the chest was performed and showed no PE but she did have bilateral effusions with probable bilateral pneumonia. With her markedanemia her Eliquis was held and she was transfused 2 units of packed red blood cells. GI was consulted and she was taken for EGD on 02/20/2024 at which time they found no gross lesions in the entire esophagus or stomach but she did have 2 nonbleeding angiodysplastic lesions in the duodenum that were treated with APC. She was also noted to have chronic duodenitis which was biopsied. She wasstarted back on a diet but on 02/22/2024 was noted to be lethargic and weak and had not been eating well. Her hemoglobin had stabilized in the mid 7 range however on the fifth was found to be 7.2 so she was transfused 2 more units of packed red blood cells which in turn improved her hemoglobin to 10.4. With her drop, colonoscopy was pursued. Colonoscopy done on 02/25/2024 showed nonbleeding internal and external hemorrhoids, and 18 mm polyp in the rectum which was removed with hot snare, a few small mouth diverticula in the rectosigmoid colon,3 sessile polyps in the splenic flexure that were removed with cold snare and sent for pathology and a 5 mm polyp in the splenic flexure that was removed and treated with coagulation for hemostasis with a heater probe. All specimens weresent for pathology and she was returned back to the floor and started on a p.o. diet. With regards to her imaging and her suspected pneumonia, she was placed on community-acquired coverage with azithromycin and ceftriaxone. She did require supplemental oxygen at 2 L. COVID/flu/RSV were negative. Strep pneumo and Legionella antigens were negative. Sputum culture was obtained and showed only presumptive Chanda albicans. She was treated with antibiotics as noted above during her hospital course and transition to oral antibiotics at the time of discharge with Augmentin for 2 more days. We also started her on Protonix 40mg p.o. twice daily that she will continue for 2 months and then transition to 40 mg daily. We did write a prescription to cover her for the next 60 days. Prescription for this and antibiotics were sent to the local pharmacy prior to discharge. Ambulatory pulse ox was obtained prior to discharge. She was found to be 87% on room air at rest and was placed on 2 L nasal cannula which improvedher oxygenation to 97% at rest and 95% with exertion. She was advised not to smoke while she is on oxygen as she is still smoking about 3 to 4 cigarettes daily but is trying to quit. We strongly encourage cessation. She is not currently following with pulmonary medicine however we have asked her to follow- up and made an appointment with her to see Dr. Hurtado after discharge. She is tocontinue wearing supplemental oxygen until instructed otherwise by her primary care physician. We have asked her to follow-up with her primary care physician within the next 2 weeks. Per gastroenterology, she is to hold her Eliquis until02/29/2024 and then reinitiated at that time. We have asked her to call gastroenterology to schedule follow-up appointment for biopsy results and ongoing hospital follow-up after discharge to be seen within the next month or assoon as Dr. Gonzalez schedule allows. Her hemoglobin at the time was discharge was 10.7. Discharge diagnoses: Hypoxia Community acquired pneumonia Upper GI bleed secondary to angiodysplastic lesions Hemorrhoids Bleeding polyp at the splenic flexure Hypokalemia-resolved Acute on chronic anemia Paroxysmal atrial fibrillation Hypertension Multiple sclerosis Chronic pain PAD Hypothyroidism Bilateral carotid artery stenosis GERD Hepatosteatosis History of TIA History of psoriatic arthritis/psoriasis Tobacco abuse Physical Exam Const alert, oriented x3, no apparent distress, average body habitus, no limitations and well nourished; Negative for healthy appearing Constitutional Narrative: Older, white female, lying in bed as she is just returned from colonoscopy, appears comfortable and nontoxic, stable on 2 L nasal cannula without any signs of respiratory distress, does appear older than stated age General Appearance: cooperative, comfortable, well kempt and well developed Orientation / Consciousness: awake, oriented to person, oriented to place and oriented to time Exam Limitations: no limitations Nutritional Appearance: thin HEENT normocephalic, head/scalp atraumatic, hearing grossly normal bilaterally and moist oral mucous membranes HEENT Narrative: Mallampati is 2, no thrush Eyes PERRL and EOMs intact bilaterally; Negative for conjunctivae normal Eyes Narrative: Mild conjunctival pallor, no scleral icterus Neck no lymphadenopathy and supple Neck Narrative: Trachea midline, no thyroid enlargement Resp normal respiratory effort, no retractions, no use of accessory muscles and clearto auscultation bilaterally Resp Narrative: Diminished diffusely without any adventitious sounds Auscultation: Negative for rales, rhonchi or wheezes Cardio regular rate, regular rhythm, S1 normal heart sound, S2 normal heart sound, no murmurs, no rub, no gallops and no clicks GI normal to inspection, nondistended, normoactive bowel sounds, soft to palpation and non-tender Extremity no clubbing, cyanosis or edema Extremity Narrative: Pedal pulses are 2+, radial pulses are 2+ Skin no rashes or lesions noted, no wounds, skin turgor normal and no jaundice Neuro oriented x3, CN's II-XII intact bilaterally, moves all extremities and no focal motor deficits Speech: speech normal Psych affect normal Psych Narrative: Mildly anxious, interacts appropriately, eye contact is good Mood & Affect: anxious Weight / BMI Weight Weight: 55.8 kg Body Mass Index (BMI) 19.8 ABG / Lab / Microbiology Data 02/25/24 13:50 02/25/24 03:15 Laboratory: Laboratory Results - last 24 hr 02/25/24 03:15: WBC 6.6, RBC 4.11 L, Hgb 10.3 L, Hct 34.3 L, MCV 83.5, MCH 25.1 L, MCHC 30.0 L, RDW Std Deviation 57.3 H, RDW Coeff of David 19.6 H, Plt Count 205, MPV 9.6, Immature Gran % (Auto) 0.600, Neut % (Auto) 68.4, Lymph % (Auto) 16.3 L, Mesa % (Auto) 11.3 H, Eos % (Auto) 2.9, Baso % (Auto) 0.5, Absolute Neuts (auto) 4.6, Absolute Lymphs (auto) 1.08, Nucleated RBC % 0, PT 13.8, INR 1.1, APTT 33.2, Sodium 141, Potassium 3.8, Chloride 110 H, Carbon Dioxide 26.0, Anion Gap 5, BUN 12, Creatinine 0.85, Estim Creat Clear Calc 55.02, Est GFR (MDRD) Af Amer 85, Est GFR (MDRD) Non-Af 70, BUN/Creatinine Ratio 14.1, Glucose 85, Calcium 8.5, TSH 3.07 02/25/24 13:50: Hgb 10.7 L Microbiology: Microbiology 02/19/24 14:20 Blood Culture (Wb) - Arm Left Blood Culture - Final No growth in 5 days. 02/19/24 14:10 Blood Culture (Wb) - Arm Left Blood Culture - Final No growth in 5 days. 02/22/24 09:25 Sputum, Expectorated/Coughed Gram Stain - Final 02/22/24 09:25 Sputum, Expectorated/Coughed Respiratory Culture - Final Presumptive C albicans 02/19/24 17:15 Mucosa - Nose SARS-CoV-2, Influenza & RSV (PCR) - Final 02/19/24 Unknown Urine Catheter - Catheter Legionella Antigen - Final 02/19/24 Unknown Urine Catheter - Catheter Streptococcus pneumoniae Antigen (M - Final 02/19/24 12:18 Stool Stool Occult Blood (CARMEN) - Final Occult Blood Positive D/C Instructions Discharge Diet: Low fat / Low cholesterol Discharge Activity: Return to Normal Activity Return to work on: 02/27/24 Meaningful Use Info Meaningful Use Diagnoses (Choose all that apply): None applicable Discharge Plan Admission Admit Date/Time: 02/19/24 14:21 Primary Reason for Your Visit: Lightheadedness Attending Provider: Eva Mortensen Primary Care Provider: Daron Benton Consulting Providers: Roman Mckeon Instructions Additional Instructions / Restrictions: 1. Please hold your Eliquis for another 3 days and restart it on 02/29/[address] Gonzalez's office tomorrow to schedule hospital follow-up for your GI bleeding 3. You will be on Protonix 40 mg twice daily for the next 2 months and then will need a new prescription for Protonix 40 mg daily Discharge Orders/Prescriptions Prescriptions: New amoxicillin-pot clavulanate 875-125 mg tablet 1 tab PO BID Qty: 4 0RF pantoprazole [Protonix] 40 mg tablet,delayed release (DR/EC) 40 mg PO BID Qty: 60 1RF Continued gabapentin 800 mg tablet 800 mg PO TID baclofen 20 mg tablet 20 mg PO Q6H levothyroxine 50 mcg tablet 50 mcg PO DAILY Patient Comments: take 1 tablet by mouth once daily oxycodone 10 mg tablet 10 mg PO Q6H PRN Patient Comments: take 1 tab q6 PRN for pain cholecalciferol (vitamin D3) 5,000 UNIT tablet 5,000 unit PO DAILY Patient Comments: supplement lisinopril 10 mg tablet 10 mg PO DAILY dextromethorphan-guaifenesin [Mucinex DM] 60-1,200 mg tablet extended release 12 hr 1 tab PO Q12H PRN (Reason: cough/congest) Held Eliquis 5 mg tablet 5 mg PO BID Qty: 60 11RF Hold Instructions: Resume on 02/29/24. Discontinued famotidine 20 mg tablet 20 mg PO DAILY Referrals / Follow Up: Jorge Hurtado DO [Med Staff - Active Staff] - 08/21/24 11:15 am Daron Benton MD [Primary Care Provider] - 02/29/24 (As previously scheduled. ) Kevin Gonzalez DO [Med Staff - Active Staff] - 03/26/24 8:00 am Disposition Disposition (needs filled in before D/C Order can be placed): Home Health Service Charges/Coding Visit Charges Inpatient E&M: 84641 Disch Hosp >30min 02/25/24 1557 <Electronically signed by Eva Mortensen DO> Cosigner Signature (if applicable): CC: Dr. Jorge Hurtado DO; Dr. Daron Benton MD; Dr. Eva Mortensen DO; Kevin Gonzalez DO~ Signed ADDENDUM by Dr. Eva Mortensen DO on 02/25/24 at 1604 Addendum I have reviewed the ambulatory pulse oximetry and this patient qualifies for home equipment and oxygen with portability as the patient is mobile in the home int community. 02/25/24 1604<Electronically signed by Eva Mortensen DO> Cosigner Signature (if applicable): cc: Dr. Jorge Hurtado DO; Dr. Daron Benton MD; Dr. Eva Mortensen DO; Kevin Gonzalez DO ~* Signed [facility] Work Phone: 1(907) 806-467704-08-2024 Procedure [facility] 02-25-2024 Procedure [facility]04-07-2024 Progress note Author Roman Mckeon [facility] February 24, 2024 8:37am Note Date/Time February 24, 2024 8:07 am [facility] Medical Records Department [address] [place] [id number] Progress Note - Hospitalist 02/24/24 0806 MR#: [id number] Acct: [id number] Name: ANGÉLICA YO Rep #:[id number] : 1955 68 From: Roman Mckeon MD PCP: Dr. Daron Benton MD Status:ADM IN Location: [place] [address] Reason for Visit Reason for Visit: Diagnoses Anemia, unspecified (02/19/24) Subjective Subjective Patient did develop significant chest discomfort the day prior. Troponin obtained came back negative EKG demonstrated A-fib with RVR. Subsequently ordered CTA of the chest which did not show No demonstrated pulmonary embolism or arterial dissection. There are bilateral pleural effusions. There is bilateral pneumonia. Objective Data Objective Data Vital Signs: Vital Signs Temp Pulse Resp BP Pulse Ox O2 Del Method O2 Flow Rate 97.1 F L 60 18 112/60 97 Nasal Cannula 2 02/24/24 02:30 02/24/24 02:30 02/24/24 02:30 02/24/24 02:30 02/24/24 07:32 02/24/24 07:32 02/24/24 07:32 Oxygen Flow Rate (L/min) 2 Oxygen Delivery Method Nasal Cannula Weight: 55.8 kg Body Mass Index (BMI) 19.8 Intake & Output: Intake and Output for Last 24 Hours 02/22/24 02/23/24 02/24/24 23:59 23:59 23:59 Intake Total 1275 / 1275 1347 / 1347 250 / 250 Output Total 1070 / 1070 550 / 550 Balance 205 / 205 797 / 797 250 / 250 Lab / Micro Data 02/24/24 06:20 02/24/24 06:25 Labs: Laboratory Results - last 24 hr 02/23/24 00:15: Troponin I High Sens 72 H 02/23/24 06:25: WBC 7.9, RBC 4.14 L, Hgb 10.4 L, Hct 33.5 L, MCV 80.9 L, MCH 25.1 L, MCHC 31.0 L D, RDW Std Deviation 52.7 H, RDW Coeff of David 18.0 H, Plt Count 218, MPV 9.4, Immature Gran % (Auto) 0.900, Neut % (Auto) 69.1, Lymph % (Auto) 15.5 L, Mesa % (Auto) 11.4 H, Eos % (Auto) 2.5, Baso % (Auto) 0.6, Absolute Neuts (auto) 5.4, Absolute Lymphs (auto) 1.22, Nucleated RBC % 0, Sodium 140, Potassium 3.3 L, Chloride 110 H, Carbon Dioxide 25.0, Anion Gap 5, BUN 20 H, Creatinine 0.92, Estim Creat Clear Calc 50.84, Est GFR (MDRD) Af Amer 78, Est GFR (MDRD) Non-Af 64, BUN/Creatinine Ratio 21.8 H, Glucose 83, Calcium 8.6, Phosphorus 2.6, Magnesium 2.0 02/23/24 18:05: Troponin I High Sens 28 02/23/24 19:50: Troponin I High Sens 28 02/24/24 06:20: WBC 10.0, RBC 4.00 L, Hgb 9.8 L, Hct 33.1 L, MCV 82.8, MCH 24.5 L, MCHC 29.6 L, RDW Std Deviation 56.5 H, RDW Coeff of David 19.3 H, Plt Count 200, MPV 9.5, Immature Gran % (Auto) 0.700, Neut % (Auto) 79.0 H, Lymph % (Auto)8.2 L, Mesa % (Auto) 10.2 H, Eos % (Auto) 1.5, Baso % (Auto) 0.4, Absolute Neuts(auto) 7.9 H, Absolute Lymphs (auto) 0.82 L, Nucleated RBC % 0 Micro: Microbiology 02/22/24 09:25 Sputum, Expectorated/Coughed Gram Stain - Final 02/22/24 09:25 Sputum, Expectorated/Coughed Respiratory Culture - Preliminary Appears to be normal respiratory emily. Further studies to follow. 02/19/24 14:20 Blood Culture (Wb) - Arm Left Blood Culture - Preliminary No growth in 48 hours. 02/19/24 14:10 Blood Culture (Wb) - Arm Left Blood Culture - Preliminary No growth in 48 hours. 02/19/24 17:15 Mucosa - Nose SARS-CoV-2, Influenza & RSV (PCR) - Final 02/19/24 Unknown Urine Catheter - Catheter Legionella Antigen - Final 02/19/24 Unknown Urine Catheter - Catheter Streptococcus pneumoniae Antigen (M - Final 02/19/24 12:18 Stool Stool Occult Blood (CARMEN) - Final Occult Blood Positive Radiography Diagnostic Testing: Radiology Impression Chest CTA 02/23/24 18:35 IMPRESSION: No demonstrated pulmonary embolism or arterial dissection. There are bilateral pleural effusions. There is bilateral pneumonia. Electronically Signed: Rafael Daniel MD at 19:44 EDT , Physical Exam Narrative GENERAL: cooperative HEENT: Atraumatic; normocephalic EYES; Anicteric, pallor of the conjunctiva NECK; supple, normal thyroid, RESPIRATORY: Diminished to auscultation CARDIOVASCULAR: Regular S1 S2, GI: soft, normoactive bowel sounds, : No Renal angle tenderness; EXTREMITIES: No edema, no clubbing, MUSCULOSKELETAL: no muscle wasting NEURO: Awake; no lateralizing signs. SKIN: No Rash PSYCH; Flat affect Assessment & Plan Assessment/Plan (1) Symptomatic anemia: PLAN: Plan Patient is a 68-year-old lady presented with fatigue found to be anemic with hemoglobin of 6.6. Chest x-ray demonstrated right lower lobe infiltrate as wellas mild vascular congestion 1. Symptomatic anemia ? Suspected to be secondary to chronic GI bleed. Patient is on apixaban for systemic anticoagulation for A-fib. Patient was guaiac positive. An order was given for patient to be transfused with 1 unit PRBC. Iron studies undertaken prior to patient being transfused ? 02/20/2024; Transfused 1 unit PRBC hemoglobin up to 7.7. Seen in consultation by GI plan is for patient to undergo upper endoscopy and if negative colonoscopy. ? 02/21/2024 patient underwent EGD on 02/20/2024 results and recommendations as below Impressions : - No gross lesions in the entire esophagus. - No gross lesions in the entire stomach. 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 Treated with argon plasma coagulation (APC). - Chronic duodenitis. Biopsied. Recommendations : - Return patient to hospital [facility] for ongoing care. - Resume regular diet. - Continue present medications. - Await pathology results. ?Patient hemoglobin still low patient started on parenteral iron ? 02/22/2024 hemoglobin down to 7.2. Patient was seen the day prior by Dr. Gonzalezwith GI patient given the option of either having inpatient versus outpatient colonoscopy. Additional Venofer given. ? 02/23/2024 patient was transfused with 1 unit PRBC the day prior. Hemoglobin upto 10.4. Patient's preference is to undergo colonoscopy in the hospital prior to discharge. ? 02/24/2024 patient scheduled to undergo colonoscopy in a.m. 2. Suspected GI bleed ? Patient is on apixaban held consult placed to Dr. Gonzalez with GI for possible endoscopic evaluation ? Patient underwent EGD result as above 3. Pneumonia - Suspected to be secondary to streptococcal pneumonia, Blood and sputum cultures sent. Patient placed on Rocephin and Zithromax and placed on oxygen titrated to keep Pulse Ox greater than 90 -02/24/2024; patient did develop significant chest discomfort the day prior. Troponin obtained came back negative EKG demonstrated A-fib with RVR. Subsequently ordered CTA of the chest which did not show No demonstrated pulmonary embolism or arterial dissection. There are bilateral pleural effusions. There is bilateral pneumonia. Patient already on antibiotic therapy for pneumonia 4. Paroxysmal A-fib ? Rate controlled on systemic anticoagulation with apixaban held given patient anemia 5. Suspected congestive heart failure?1 with preserved ejection fraction ? Possibly precipitated by patient being anemic patient was placed on diuretic therapy 2D echo ordered 6. Hypertension - Blood pressure controlled, home medications continued with dose adjustment as needed 7. Multiple sclerosis ? Per history patient is on baclofen for muscle relaxation 8. Hypothyroidism ? Patient is on levothyroxine did continue with home dose 9. Peripheral arterial disease ? With history of bilateral carotid artery stenosis, peripheral vascular occlusive disease. Patient was on systemic anticoagulation with apixaban held given about reasons 10. DVT prophylaxis ? Patient is on apixaban held 11. Acute toxic encephalopathy ? Patient is on multiple psychotropic medications including gabapentin dose adjusted given her significant lethargy Time spent in the patient's overall evaluation,decision-making process, review of diagnostic data, adjustment of management, discussion with other providers, nursing nursing and ancillary staff involved in patient's care documentation, 35 Minutes Charges/Coding Visit Charges Inpatient E&M: 73018 [facility] Hosp L2 02/24/24 0837 <Electronically signed by Roman Mckeon MD> Cosigner Signature (if applicable): CC: ~ Signed [facility] Work Phone: 1(166) 173-187704-06-2024 Progress note Author Kevin Gonzalez [facility] February 23, 2024 4:20pm Note Date/Time February 23, 2024 4:20 pm [facility] Medical Records Department [address] [facility] [facility] [address] Progress Note - GI 02/23/24 1619 MR#: [id number] Acct: [id number] Name: ANGÉLICA YO Rep #:[id number] 3 : 1955 68 From: Kevin Gonzalez DO PCP: Dr. Daron Benton MD Status:ADM IN Location: [place] [address] Subjective Subjective Patient does not have any complaints at this time. She is willing to undergo colonoscopy to figure out her severe iron deficiency anemia. Objective Data Objective Data Vital Signs: Vital Signs Temp Pulse Resp BP Pulse Ox O2 Del Method O2 Flow Rate 97.2 F L 69 17 177/89 H 97 Nasal Cannula 2 02/23/24 11:25 02/23/24 11:25 02/23/24 11:25 02/23/24 11:25 02/23/24 11:25 02/23/24 14:00 02/23/24 14:00 Oxygen Flow Rate (L/min) 2 Oxygen Delivery Method Nasal Cannula Weight: 123 lb 0.287 oz Body Mass Index (BMI) 19.8 Intake & Output: Intake and Output for Last 24 Hours 02/21/24 02/22/24 02/23/24 23:59 23:59 23:59 Intake Total 1685 / 1685 1275 / 1275 817 / 817 Output Total 1250 / 1250 1070 / 1070 550 / 550 Balance 435 / 435 205 / 205 267 / 267 Lab / Micro Data 02/23/24 06:25 02/23/24 06:25 Labs: Laboratory Results - last 24 hr 02/22/24 20:40: Blood Type O POSITIVE, Antibody Screen NEGATIVE, Crossmatch See Detail 02/23/24 06:25: WBC 7.9, RBC 4.14 L, Hgb 10.4 L, Hct 33.5 L, MCV 80.9 L, MCH 25.1 L, MCHC 31.0 L D, RDW Std Deviation 52.7 H, RDW Coeff of David 18.0 H, Plt Count 218, MPV 9.4, Immature Gran % (Auto) 0.900, Neut % (Auto) 69.1, Lymph % (Auto) 15.5 L, Mesa % (Auto) 11.4 H, Eos % (Auto) 2.5, Baso % (Auto) 0.6, Absolute Neuts (auto) 5.4, Absolute Lymphs (auto) 1.22, Nucleated RBC % 0, Sodium 140, Potassium 3.3 L, Chloride 110 H, Carbon Dioxide 25.0, Anion Gap 5, BUN 20 H, Creatinine 0.92, Estim Creat Clear Calc 50.84, Est GFR (MDRD) Af Amer 78, Est GFR (MDRD) Non-Af 64, BUN/Creatinine Ratio 21.8 H, Glucose 83, Calcium 8.6, Phosphorus 2.6, Magnesium 2.0 Micro: Microbiology 02/22/24 09:25 Sputum, Expectorated/Coughed Gram Stain - Final 02/22/24 09:25 Sputum, Expectorated/Coughed Respiratory Culture - Preliminary Appears to be normal respiratory emily. Further studies to follow. 02/19/24 14:20 Blood Culture (Wb) - Arm Left Blood Culture - Preliminary No growth in 48 hours. 02/19/24 14:10 Blood Culture (Wb) - Arm Left Blood Culture - Preliminary No growth in 48 hours. 02/19/24 17:15 Mucosa - Nose SARS-CoV-2, Influenza & RSV (PCR) - Final 02/19/24 Unknown Urine Catheter - Catheter Legionella Antigen - Final 02/19/24 Unknown Urine Catheter - Catheter Streptococcus pneumoniae Antigen (M - Final 02/19/24 12:18 Stool Stool Occult Blood (CARMEN) - Final Occult Blood Positive Physical Exam Narrative GENERAL: cooperative HEENT: Atraumatic; normocephalic EYES; Anicteric, pallor of the conjunctiva NECK; supple, normal thyroid, RESPIRATORY: Diminished to auscultation CARDIOVASCULAR: Regular S1 S2, GI: soft, normoactive bowel sounds, : No Renal angle tenderness; EXTREMITIES: No edema, no clubbing, MUSCULOSKELETAL: no muscle wasting NEURO: Awake; no lateralizing signs. SKIN: No Rash PSYCH; Flat affect Assessment & Plan Assessment/Plan (1) Symptomatic anemia: PLAN: Plan a 68-year-old lady presented with fatigue and shortness of breath found to be anemic with hemoglobin of 6.6. Chest x-ray demonstrated right lower lobe infiltrate as well as mild vascular congestion She appears to have symptomatic anemia. I suspected that was a upper GI bleed with an acute on chronic GI blood loss. Her MCV is very low there was no sign of recent. GI blood loss anemia seen on her upper endoscopy. With her MCV low she should undergo colonoscopy. I will leave it up to the patient to see if shewants to do it inpatient or outpatient. 02/22/2024-her hemoglobin is 7.2. Agree with iron transfusion and transfused 1 unit packed red blood cells if hemoglobin drops below 7. I would like her to jeanmarie little bit more awake and alert prior to her undergoing colonoscopy. I do notthink her low hemoglobin is contributing to her hypotension and lethargy. 02/23/2024-she responded very well to blood transfusion and iron transfusion that I gave her yesterday. We will prep her tomorrow for colonoscopy on Sunday. Charges/Coding Visit Charges Inpatient E&M: 78794 Subs Hosp L3 02/23/24 1620 <Electronically signed by Kevin Friend DO> Cosigner Signature (if applicable): CC: ~ Signed [facility] Work Phone: 1(339) 233-777704-06-2024 Progress note Author Roman Mckeon [facility] February 23, 2024 9:04am Note Date/Time February 23, 2024 8:20 am [facility] Medical Records Department [address] [facility] [place] [address] Progress Note - Hospitalist 02/23/24819 MR#: [id number] Acct: [id number] Name: ANGÉLICA YO Rep #:[id number] : 1955 68 From: Roman Mckeon MD PCP: Dr. Daron Benton MD Status:ADM IN Location: [place] [address] Reason for Visit Reason for Visit: Diagnoses Anemia, unspecified (02/19/24) Subjective Subjective Patient was transfused an additional 1 unit PRBC the day prior. Also did receive second infusion with Venofer. Did discuss with patient regarding plans for further diagnostic evaluation her preference would be to stay in the hospital for colonoscopy prior to being discharged Objective Data Objective Data Vital Signs: Vital Signs Temp Pulse Resp BP Pulse Ox O2 Del Method O2 Flow Rate 97.9 F 65 20 H 179/84 H 98 Nasal Cannula 2 02/23/24 05:25 02/23/24 06:42 02/23/24 05:25 02/23/24 06:42 02/23/24 05:25 02/23/24 05:25 02/23/24 05:25 Oxygen Flow Rate (L/min) 2 Oxygen Delivery Method Nasal Cannula Weight: 55.8 kg Body Mass Index (BMI) 19.8 Intake & Output: Intake and Output for Last 24 Hours 02/21/24 02/22/24 02/23/24 23:59 23:59 23:59 Intake Total 1685 / 1685 1275 / 1275 402 / 402 Output Total 1250 / 1250 1070 / 1070 550 / 550 Balance 435 / 435 205 / 205 -148 / -148 Lab / Micro Data 02/23/24 06:25 02/23/24 06:25 Labs: Laboratory Results - last 24 hr 02/22/24 20:40: Blood Type O POSITIVE, Antibody Screen NEGATIVE, Crossmatch See Detail Micro: Microbiology 02/22/24 09:25 Sputum, Expectorated/Coughed Gram Stain - Final 02/19/24 14:20 Blood Culture (Wb) - Arm Left Blood Culture - Preliminary No growth in 48 hours. 02/19/24 14:10 Blood Culture (Wb) - Arm Left Blood Culture - Preliminary No growth in 48 hours. 02/19/24 17:15 Mucosa - Nose SARS-CoV-2, Influenza & RSV (PCR) - Final 02/19/24 Unknown Urine Catheter - Catheter Legionella Antigen - Final 02/19/24 Unknown Urine Catheter - Catheter Streptococcus pneumoniae Antigen (M - Final 02/19/24 12:18 Stool Stool Occult Blood (CARMEN) - Final Occult Blood Positive Physical Exam Narrative GENERAL: cooperative HEENT: Atraumatic; normocephalic EYES; Anicteric, pallor of the conjunctiva NECK; supple, normal thyroid, RESPIRATORY: Diminished to auscultation CARDIOVASCULAR: Regular S1 S2, GI: soft, normoactive bowel sounds, : No Renal angle tenderness; EXTREMITIES: No edema, no clubbing, MUSCULOSKELETAL: no muscle wasting NEURO: Awake; no lateralizing signs. SKIN: No Rash PSYCH; Flat affect Assessment & Plan Assessment/Plan (1) Symptomatic anemia: PLAN: Plan Patient is a 68-year-old lady presented with fatigue found to be anemic with hemoglobin of 6.6. Chest x-ray demonstrated right lower lobe infiltrate as wellas mild vascular congestion 1. Symptomatic anemia ? Suspected to be secondary to chronic GI bleed. Patient is on apixaban for systemic anticoagulation for A-fib. Patient was guaiac positive. An order was given for patient to be transfused with 1 unit PRBC. Iron studies undertaken prior to patient being transfused ? 02/20/2024; Transfused 1 unit PRBC hemoglobin up to 7.7. Seen in consultation by GI plan is for patient to undergo upper endoscopy and if negative colonoscopy. ? 02/21/2024 patient underwent EGD on 02/20/2024 results and recommendations as below Impressions : - No gross lesions in the entire esophagus. - No gross lesions in the entire stomach. 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 Treated with argon plasma coagulation (APC). - Chronic duodenitis. Biopsied. Recommendations : - [facility] patient to [facility] for [facility] care. - Resume regular diet. - Continue present medications. - Await pathology results. ?Patient hemoglobin still low patient started on parenteral iron ? 02/22/2024 hemoglobin down to 7.2. Patient was seen the day prior by Dr. Gonzalezwith GI patient given the option of either having inpatient versus outpatient colonoscopy. Additional Venofer given. ? 02/23/2024 patient was transfused with 1 unit PRBC the day prior. Hemoglobin upto 10.4. Patient's preference is to undergo colonoscopy in the hospital prior to discharge. 2. Suspected GI bleed ? Patient is on apixaban held consult placed to Dr. Gonzalez with GI for possible endoscopic evaluation ? Patient underwent EGD result as above 3. Pneumonia - Suspected to be secondary to streptococcal pneumonia, Blood and sputum cultures sent. Patient placed on Rocephin and Zithromax and placed on oxygen titrated to keep Pulse Ox greater than 90 4. Paroxysmal A-fib ? Rate controlled on systemic anticoagulation with apixaban held given patient anemia 5. Suspected congestive heart failure?1 with preserved ejection fraction ? Possibly precipitated by patient being anemic patient was placed on diuretic therapy 2D echo ordered 6. Hypertension - Blood pressure controlled, home medications continued with dose adjustment as needed 7. Multiple sclerosis ? Per history patient is on baclofen for muscle relaxation 8. Hypothyroidism ? Patient is on levothyroxine did continue with home dose 9. Peripheral arterial disease ? With history of bilateral carotid artery stenosis, peripheral vascular occlusive disease. Patient was on systemic anticoagulation with apixaban held given about reasons 10. DVT prophylaxis ? Patient is on apixaban held 11. Acute toxic encephalopathy ? Patient is on multiple psychotropic medications including gabapentin dose adjusted given her significant lethargy Time spent in the patient's overall evaluation,decision-making process, review of diagnostic data, adjustment of management, discussion with other providers, nursing nursing and ancillary staff involved in patient's care documentation, 38 Minutes Charges/Coding Visit Charges Inpatient E&M: 92107 Subs Hosp L2 02/23/24 0904 <Electronically signed by Roman Mckeon MD> Cosigner Signature (if applicable): CC: ~ Signed [facility] Work Phone: [phone]) 530-664004-05-2024 Progress note Author Kevin Friend [facility] February 22, 2024 5:55pm Note Date/Time February 22, 2024 5:55 pm [facility] Medical Records Department [address] [place] [address] Progress Note - GI 02/22/24 1753 MR#: [id number] Acct: [id number] Name: ANGÉLICA YO Rep #:[id number] : 1955 68 From: Kevin Friend DO PCP: Dr. Daron Benton MD Status:ADM IN Location: [place] [address] Subjective Subjective Patient is still very lethargic and weak today. She is not eating well. She has been sleeping a lot today. Objective Data Objective Data Vital Signs: Vital Signs Temp Pulse Resp BP Pulse Ox O2 Del Method O2 Flow Rate 97.8 F 61 16 125/66 H 98 Nasal Cannula 2 02/22/24 14:54 02/22/24 14:54 02/22/24 14:54 02/22/24 14:54 02/22/24 14:54 02/22/24 14:54 02/22/24 14:54 Oxygen Flow Rate (L/min) 2 Oxygen Delivery Method Nasal Cannula Weight: 123 lb 0.287 oz Body Mass Index (BMI) 19.8 Intake & Output: Intake and Output for Last 24 Hours 02/20/24 02/21/24 02/22/24 23:59 23:59 23:59 Intake Total 560 / 560 1685 / 1685 925 / 925 Output Total 1800 / 1800 1250 / 1250 770 / 770 Balance -1240 / -1240 435 / 435 155 / 155 Lab / Micro Data 02/22/24 06:45 02/22/24 06:45 Labs: Laboratory Results - last 24 hr 02/22/24 06:45: WBC 7.7, RBC 3.18 L, Hgb 7.2 L, Hct 25.4 L, MCV 79.9 L, MCH 22.6L, MCHC 28.3 L D, RDW Std Deviation 52.1 H, RDW Coeff of David 18.0 H, Plt Count 213, MPV 10.0, Immature Gran % (Auto) 0.500, Neut % (Auto) 68.8, Lymph % (Auto) 14.2 L, [place] % (Auto) 12.5 H, Eos % (Auto) 3.1, Baso % (Auto) 0.9, Absolute Neuts (auto) 5.3, Absolute Lymphs (auto) 1.09, Nucleated RBC % 0, Sodium 143, Potassium 3.6, Chloride 114 H, Carbon Dioxide 25.0, Anion Gap 4 L, BUN 17, Creatinine 0.96, Estim Creat Clear Calc 48.72, Est GFR (MDRD) Af Amer 74, Est GFR (MDRD) Non-Af 62, BUN/Creatinine Ratio 17.8, Glucose 93, Calcium 8.3 L, Total Bilirubin 0.20, AST 9 L, ALT 8 L, Alkaline Phosphatase 133 H, Total Protein 5.2 L, Albumin 2.2 L, Globulin 3.0, Albumin/Globulin Ratio 0.7 L Micro: Microbiology 02/22/24 09:25 Sputum, Expectorated/Coughed Gram Stain - Final 02/19/24 14:20 Blood Culture (Wb) - Arm Left Blood Culture - Preliminary No growth in 48 hours. 02/19/24 14:10 Blood Culture (Wb) - Arm Left Blood Culture - Preliminary No growth in 48 hours. 02/19/24 17:15 Mucosa - Nose SARS-CoV-2, Influenza & RSV (PCR) - Final 02/19/24 Unknown Urine Catheter - Catheter Legionella Antigen - Final 02/19/24 Unknown Urine Catheter - Catheter Streptococcus pneumoniae Antigen (M - Final 02/19/24 12:18 Stool Stool Occult Blood (CARMEN) - Final Occult Blood Positive Physical Exam Narrative GENERAL: cooperative HEENT: Atraumatic; normocephalic EYES; Anicteric, pallor of the conjunctiva NECK; supple, normal thyroid, RESPIRATORY: Diminished to auscultation CARDIOVASCULAR: Regular S1 S2, GI: soft, normoactive bowel sounds, : No Renal angle tenderness; EXTREMITIES: No edema, no clubbing, MUSCULOSKELETAL: no muscle wasting NEURO: Awake; no lateralizing signs. SKIN: No Rash PSYCH; Flat affect Assessment & Plan Assessment/Plan (1) Symptomatic anemia: PLAN: Plan a 68-year-old lady presented with fatigue and shortness of breath found to be anemic with hemoglobin of 6.6. Chest x-ray demonstrated right lower lobe infiltrate as well as mild vascular congestion She appears to have symptomatic anemia. I suspected that was a upper GI bleed with an acute on chronic GI blood loss. Her MCV is very low there was no sign of recent. GI blood loss anemia seen on her upper endoscopy. With her MCV low she should undergo colonoscopy. I will leave it up to the patient to see if shewants to do it inpatient or outpatient. 02/22/2024-her hemoglobin is 7.2. Agree with iron transfusion and transfused 1 unit packed red blood cells if hemoglobin drops below 7. I would like her to jeanmarie little bit more awake and alert prior to her undergoing colonoscopy. I do notthink her low hemoglobin is contributing to her hypotension and lethargy. Charges/Coding Visit Charges Inpatient E&M: 91664 Subs Hosp L3 02/22/24 6766 <Electronically signed by Kevin Friend DO> Cosigner Signature (if applicable): CC: ~ Signed [facility] Work Phone: 1(785) 593-887104-05-2024 Progress note Author Roman Mckeon [facility] February 22, 2024 9:50am Note Date/Time February 22, 2024 7:36 am [facility] Medical Records Department [address] [place] [address] Progress Note - Hospitalist 02/22/24 0736 MR#: [id number] Acct: [id number] Name: ANGÉLICA YO Rep #:[id number] : 1955 68 From: Roman Mckeon MD PCP: Dr. Daron Benton MD Status:ADM IN Location: [place] [address] Reason for Visit Reason for Visit: Diagnoses Anemia, unspecified (02/19/24) Subjective Subjective Patient seen remains significantly lethargic this a.m. Did adjust dose of patient gabapentin dose. Hemoglobin down to 7.2. Ordered additional dose of Venofer. Objective Data Objective Data Vital Signs: Vital Signs Temp Pulse Resp BP Pulse Ox O2 Del Method O2 Flow Rate 97.8 F 50 L 16 130/67 H 98 Nasal Cannula 3 02/22/24 04:45 02/22/24 04:45 02/22/24 04:45 02/22/24 04:45 02/22/24 04:45 02/22/24 04:54 02/22/24 04:45 Oxygen Flow Rate (L/min) 3 Oxygen Delivery Method Nasal Cannula Weight: 55.8 kg Body Mass Index (BMI) 19.8 Intake & Output: Intake and Output for Last 24 Hours 02/20/24 02/21/24 02/22/24 23:59 23:59 23:59 Intake Total 560 / 560 1685 / 1685 240 / 240 Output Total 1800 / 1800 1250 / 1250 250 / 250 Balance -1240 / -1240 435 / 435 -10 / -10 Lab / Micro Data 02/22/24 06:45 02/22/24 06:45 Micro: Microbiology 02/19/24 14:20 Blood Culture (Wb) - Arm Left Blood Culture - Preliminary No growth in 48 hours. 02/19/24 14:10 Blood Culture (Wb) - Arm Left Blood Culture - Preliminary No growth in 48 hours. 02/19/24 17:15 Mucosa - Nose SARS-CoV-2, Influenza & RSV (PCR) - Final 02/19/24 Unknown Urine Catheter - Catheter Legionella Antigen - Final 02/19/24 Unknown Urine Catheter - Catheter Streptococcus pneumoniae Antigen (M - Final 02/19/24 12:18 Stool Stool Occult Blood (CARMEN) - Final Occult Blood Positive Physical Exam Narrative GENERAL: cooperative HEENT: Atraumatic; normocephalic EYES; Anicteric, pallor of the conjunctiva NECK; supple, normal thyroid, RESPIRATORY: Diminished to auscultation CARDIOVASCULAR: Regular S1 S2, GI: soft, normoactive bowel sounds, : No Renal angle tenderness; EXTREMITIES: No edema, no clubbing, MUSCULOSKELETAL: no muscle wasting NEURO: Awake; no lateralizing signs. SKIN: No Rash PSYCH; Flat affect Assessment & Plan Assessment/Plan (1) Symptomatic anemia: PLAN: Plan Patient is a 68-year-old lady presented with fatigue found to be anemic with hemoglobin of 6.6. Chest x-ray demonstrated right lower lobe infiltrate as wellas mild vascular congestion 1. Symptomatic anemia ? Suspected to be secondary to chronic GI bleed. Patient is on apixaban for systemic anticoagulation for A-fib. Patient was guaiac positive. An order was given for patient to be transfused with 1 unit PRBC. Iron studies undertaken prior to patient being transfused ? 02/20/2024; Transfused 1 unit PRBC hemoglobin up to 7.7. Seen in consultation by GI plan is for patient to undergo upper endoscopy and if negative colonoscopy. ? 02/21/2024 patient underwent EGD on 02/20/2024 results and recommendations as below Impressions : - No gross lesions in the entire esophagus. - No gross lesions in the entire stomach. 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 Treated with argon plasma coagulation (APC). - Chronic duodenitis. Biopsied. Recommendations : - Return patient to [facility] for ongoing care. - Resume regular diet. - Continue present medications. - Await pathology results. ?Patient hemoglobin still low patient started on parenteral iron ? 02/22/2024 hemoglobin down to 7.2. Patient was seen the day prior by Dr. Figueroa GI patient given the option of either having inpatient versus outpatient colonoscopy. Additional Venofer given. 2. Suspected GI bleed ? Patient is on apixaban held consult placed to Dr. Gonzalez with GI for possible endoscopic evaluation 3. Pneumonia - Suspected to be secondary to streptococcal pneumonia, Blood and sputum cultures sent. Patient placed on Rocephin and Zithromax and placed on oxygen titrated to keep Pulse Ox greater than 90 4. Paroxysmal A-fib ? Rate controlled on systemic anticoagulation with apixaban held given patient anemia 5. Suspected congestive heart failure?1 with preserved ejection fraction ? Possibly precipitated by patient being anemic patient was placed on diuretic therapy 2D echo ordered 6. Hypertension - Blood pressure controlled, home medications continued with dose adjustment as needed 7. Multiple sclerosis ? Per history patient is on baclofen for muscle relaxation 8. Hypothyroidism ? Patient is on levothyroxine did continue with home dose 9. Peripheral arterial disease ? With history of bilateral carotid artery stenosis, peripheral vascular occlusive disease. Patient was on systemic anticoagulation with apixaban held given about reasons 10. DVT prophylaxis ? Patient is on apixaban held 11. Acute toxic encephalopathy ? Patient is on multiple psychotropic medications including gabapentin dose adjusted given her significant lethargy Time spent in the patient's overall evaluation,decision-making process, review of diagnostic data, adjustment of management, discussion with other providers, nursing nursing and ancillary staff involved in patient's care documentation, 52 Minutes Charges/Coding Visit Charges Inpatient E&M: 36564 Subs Hosp L3 02/22/24 0950 <Electronically signed by Roman Mckeon MD> Cosigner Signature (if applicable): CC: ~ Signed [facility] Work Phone: 1(234) 519-520804-04-2024 Progress note Author Kevin Gonzalez [facility] February 21, 2024 5:17pm Note Date/Time February 21, 2024 5:17 pm [facility] Medical Records Department [address] [place] [address] Progress Note - GI 02/21/24 1710 MR#: [id number] Acct: [id number] Name: ANGÉLICA YO Rep #:[id number] : 1955 68 From: Kevin Gonzalez DO PCP: Dr. Daron Benton MD Status:ADM IN Location: [place] [address] Subjective Subjective She underwent an upper endoscopy yesterday for acute GI blood loss and was determined to have a couple small angiodysplastic lesions without any bleeding stigmata. There were treated endoscopically Objective Data Objective Data Vital Signs: Vital Signs Temp Pulse Resp BP Pulse Ox O2 Del Method O2 Flow Rate 97.5 F L 61 16 127/56 H 96 Room Air 2 02/21/24 17:06 02/21/24 17:06 02/21/24 17:06 02/21/24 17:06 02/21/24 17:06 02/21/24 17:06 02/21/24 14:23 Oxygen Flow Rate (L/min) 2 Oxygen Delivery Method Room Air Weight: 123 lb 0.287 oz Body Mass Index (BMI) 19.8 Intake & Output: Intake and Output for Last 24 Hours 02/19/24 02/20/24 02/21/24 23:59 23:59 23:59 Intake Total 1416 / 1416 560 / 560 935 / 935 Output Total 1500 / 1500 1800 / 1800 750 / 750 Balance -84 / -84 -1240 / -1240 185 / 185 Lab / Micro Data 02/20/24 11:50 02/21/24 06:10 Labs: Laboratory Results - last 24 hr 02/21/24 06:10: Sodium 139, Potassium 3.7, Chloride 110 H, Carbon Dioxide 24.0, Anion Gap 5, BUN 18, Creatinine 0.91, Estim Creat Clear Calc 51.40, Est GFR (MDRD) Af Amer 79, Est GFR (MDRD) Non-Af 65, BUN/Creatinine Ratio 19.9, Glucose 90, Calcium 7.9 L, Total Bilirubin 0.30, AST 9 L, ALT 8 L, Alkaline Phosphatase 138 H, Total Protein 5.4 L, Albumin 2.4 L, Globulin 3.0, Albumin/Globulin Ratio 0.8 L Micro: Microbiology 02/19/24 14:20 Blood Culture (Wb) - Arm Left Blood Culture - Preliminary No growth in 48 hours. 02/19/24 14:10 Blood Culture (Wb) - Arm Left Blood Culture - Preliminary No growth in 48 hours. 02/19/24 17:15 Mucosa - Nose SARS-CoV-2, Influenza & RSV (PCR) - Final 02/19/24 Unknown Urine Catheter - Catheter Legionella Antigen - Final 02/19/24 Unknown Urine Catheter - Catheter Streptococcus pneumoniae Antigen (M - Final 02/19/24 12:18 Stool Stool Occult Blood (CARMEN) - Final Occult Blood Positive Physical Exam Narrative GENERAL: cooperative HEENT: Atraumatic; normocephalic EYES; Anicteric, pallor of the conjunctiva NECK; supple, normal thyroid, RESPIRATORY: Diminished to auscultation CARDIOVASCULAR: Regular S1 S2, GI: soft, normoactive bowel sounds, : No Renal angle tenderness; EXTREMITIES: No edema, no clubbing, MUSCULOSKELETAL: no muscle wasting NEURO: Awake; no lateralizing signs. SKIN: No Rash PSYCH; Flat affect Assessment & Plan Assessment/Plan (1) Symptomatic anemia: PLAN: Plan a 68-year-old lady presented with fatigue and shortness of breath found to be anemic with hemoglobin of 6.6. Chest x-ray demonstrated right lower lobe infiltrate as well as mild vascular congestion She appears to have symptomatic anemia. I suspected that was a upper GI bleed with an acute on chronic GI blood loss. Her MCV is very low there was no sign of recent. GI blood loss anemia seen on her upper endoscopy. With her MCV low she should undergo colonoscopy. I will leave it up to the patient to see if shewants to do it inpatient or outpatient. Charges/Coding Visit Charges Inpatient E&M: 83568 Subs Hosp L3 02/21/24 6851 <Electronically signed by Kevin Friend DO> Cosigner Signature (if applicable): CC: ~ Signed [facility] Work Phone: [phone]) [phone] Progress note Author Roman Mckeon [facility] February 21, 2024 11:21am Note Date/Time February 21, 2024 10:0 5am [facility] Medical Records Department [address] [place] [address] Progress Note - Hospitalist 02/21/24 1002 MR#: [id number] Acct: [id number] Name: ANGÉLICA YO Rep #:[id number] : 1955 68 From: Roman Mckeon MD PCP: Dr. Daron Benton MD Status:ADM IN Location: [place] [address] Reason for Visit Reason for Visit: Diagnoses Anemia, unspecified (02/19/24) Subjective Subjective Patient underwent EGD the day prior results are as below. Her hemoglobin level continues to decline. Patient started on parenteral iron Objective Data Objective Data Vital Signs: Vital Signs Temp Pulse Resp BP Pulse Ox O2 Del Method O2 Flow Rate 98.1 F 58 L 18 120/62 95 Room Air 1 02/21/24 02:57 02/21/24 02:57 02/21/24 02:57 02/21/24 02:57 02/21/24 02:57 02/21/24 08:06 02/21/24 02:57 Oxygen Flow Rate (L/min) 1 Oxygen Delivery Method Room Air Weight: 55.8 kg Body Mass Index (BMI) 19.8 Intake & Output: Intake and Output for Last 24 Hours 02/19/24 02/20/24 02/21/24 23:59 23:59 23:59 Intake Total 1416 / 1416 560 / 560 250 / 250 Output Total 1500 / 1500 1800 / 1800 250 / 250 Balance -84 / -84 -1240 / -1240 0 / 0 Lab / Micro Data 02/20/24 11:50 02/21/24 06:10 Labs: Laboratory Results - last 24 hr 02/20/24 11:50: Hgb 7.3 L, Hct 24.7 L 02/21/24 06:10: Sodium 139, Potassium 3.7, Chloride 110 H, Carbon Dioxide 24.0, Anion Gap 5, BUN 18, Creatinine 0.91, Estim Creat Clear Calc 51.40, Est GFR (MDRD) Af Amer 79, Est GFR (MDRD) Non-Af 65, BUN/Creatinine Ratio 19.9, Glucose 90, Calcium 7.9 L, Total Bilirubin 0.30, AST 9 L, ALT 8 L, Alkaline Phosphatase 138 H, Total Protein 5.4 L, Albumin 2.4 L, Globulin 3.0, Albumin/Globulin Ratio 0.8 L Micro: Microbiology 02/19/24 17:15 Mucosa - Nose SARS-CoV-2, Influenza & RSV (PCR) - Final 02/19/24 Unknown Urine Catheter - Catheter Legionella Antigen - Final 02/19/24 Unknown Urine Catheter - Catheter Streptococcus pneumoniae Antigen (M - Final 02/19/24 12:18 Stool Stool Occult Blood (CARMEN) - Final Occult Blood Positive Physical Exam Narrative GENERAL: cooperative HEENT: Atraumatic; normocephalic EYES; Anicteric, pallor of the conjunctiva NECK; supple, normal thyroid, RESPIRATORY: Diminished to auscultation CARDIOVASCULAR: Regular S1 S2, GI: soft, normoactive bowel sounds, : No Renal angle tenderness; EXTREMITIES: No edema, no clubbing, MUSCULOSKELETAL: no muscle wasting NEURO: Awake; no lateralizing signs. SKIN: No Rash PSYCH; Flat affect Assessment & Plan Assessment/Plan (1) Symptomatic anemia: PLAN: Plan Patient is a 68-year-old lady presented with fatigue found to be anemic with hemoglobin of 6.6. Chest x-ray demonstrated right lower lobe infiltrate as wellas mild vascular congestion 1. Symptomatic anemia ? Suspected to be secondary to chronic GI bleed. Patient is on apixaban for systemic anticoagulation for A-fib. Patient was guaiac positive. An order was given for patient to be transfused with 1 unit PRBC. Iron studies undertaken prior to patient being transfused ? 02/20/2024; Transfused 1 unit PRBC hemoglobin up to 7.7. Seen in consultation by GI plan is for patient to undergo upper endoscopy and if negative colonoscopy. ? 02/21/2024 patient underwent EGD on 02/20/2024 results and recommendations as below Impressions : - No gross lesions in the entire esophagus. - No gross lesions in the entire stomach. 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 Treated with argon plasma coagulation (APC). - Chronic duodenitis. Biopsied. Recommendations : - Return patient to [facility] for ongoing care. - Resume regular diet. - Continue present medications. - Await pathology results. ?Patient hemoglobin still low patient started on parenteral iron 2. Suspected GI bleed ? Patient is on apixaban held consult placed to Dr. Gonzalez with GI for possible endoscopic evaluation 3. Pneumonia - Suspected to be secondary to streptococcal pneumonia, Blood and sputum cultures sent. Patient placed on Rocephin and Zithromax and placed on oxygen titrated to keep Pulse Ox greater than 90 4. Paroxysmal A-fib ? Rate controlled on systemic anticoagulation with apixaban held given patient anemia 5. Suspected congestive heart failure?1 with preserved ejection fraction ? Possibly precipitated by patient being anemic patient was placed on diuretic therapy 2D echo ordered 6. Hypertension - Blood pressure controlled, home medications continued with dose adjustment as needed 7. Multiple sclerosis ? Per history patient is on baclofen for muscle relaxation 8. Hypothyroidism ? Patient is on levothyroxine did continue with home dose 9. Peripheral arterial disease ? With history of bilateral carotid artery stenosis, peripheral vascular occlusive disease. Patient was on systemic anticoagulation with apixaban held given about reasons 10. DVT prophylaxis ? Patient is on apixaban held Time spent in the patient's overall evaluation,decision-making process, review of diagnostic data, adjustment of management, discussion with other providers, nursing nursing and ancillary staff involved in patient's care documentation, 50 Minutes Charges/Coding Visit Charges Inpatient E&M: 22521 Subs Hosp L3 02/21/24 1121 <Electronically signed by Roman Mckeon MD> Cosigner Signature (if applicable): CC: ~ Signed [facility] Work Phone: 1(445) 400-278804-03-2024 Progress note Author Roman Mckeon [facility] February 20, 2024 11:46am Note Date/Time February 20, 2024 10:0 8am [facility] Medical Records Department [address] [place] [address] Progress Note - Hospitalist 02/20/24 1005 MR#: [id number] Acct: [id number] Name: ANGÉLICA YO Rep #:[id number] : 1955 68 From: Roman Mckeon MD PCP: Dr. Daron Benton MD Status:ADM IN Location: [place] [id number]- [id number] Reason for Visit Reason for Visit: Diagnoses Anemia, unspecified (02/19/24) Subjective Subjective Patient is a 68-year-old lady admitted with symptomatic anemia. Transfused 1 unit PRBC hemoglobin up to 7.7. Seen in consultation by GI plan is for patient to undergo upper endoscopy and if negative colonoscopy. Objective Data Objective Data Vital Signs: Vital Signs Temp Pulse Resp BP Pulse Ox O2 Del Method 97.8 F 63 60 H 161/91 H 93 Room Air 02/20/24 09:13 02/20/24 09:13 02/20/24 09:13 02/20/24 09:13 02/20/24 09:13 02/20/24 09:13 Oxygen Delivery Method Room Air Weight: 55.8 kg Body Mass Index (BMI) 19.8 Intake & Output: Intake and Output for Last 24 Hours 02/18/24 02/19/24 02/20/24 23:59 23:59 23:59 Intake Total 1416 / 1416 Output Total 1500 / 1500 600 / 600 Balance -84 / -84 -600 / -600 Lab / Micro Data 02/20/24 04:55 02/20/24 04:55 Labs: Laboratory Results - last 24 hr 02/19/24 11:15: WBC 8.1, RBC 2.90 L, Hgb 6.6 L, Hct 22.4 L, MCV 77.2 L, MCH 22.8L, MCHC 29.5 L, RDW Std Deviation 48.0 H, RDW Coeff of David 17.1 H, Plt Count 193, MPV 10.0, Immature Gran % (Auto) 0.500, Neut % (Auto) 73.5 H, Lymph % (Auto) 14.5 L, Mesa % (Auto) 8.5, Eos % (Auto) 2.6, Baso % (Auto) 0.4, Absolute Neuts (auto) 5.9, Absolute Lymphs (auto) 1.17, Nucleated RBC % 0, Sodium 137, Potassium 3.8, Chloride 106, Carbon Dioxide 25.0, Anion Gap 6, BUN 21 H, Creatinine 1.00, Estim Creat Clear Calc 49.70, Est GFR (MDRD) Af Amer 71, Est GFR (MDRD) Non-Af 58 L, BUN/Creatinine Ratio 21.0 H, Glucose 128 H, Calcium 8.3 L, Troponin I High Sens 6 02/19/24 11:18: POC Glucose 128 H 02/19/24 12:20: Blood Type O POSITIVE, Antibody Screen NEGATIVE, Crossmatch See Detail 02/19/24 14:10: Lactic Acid 1.0 02/19/24 15:00: Troponin I High Sens 15 02/19/24 17:30: Hgb 8.5 L, Hct 28.6 L 02/19/24 22:46: Hgb 7.9 L, Hct 26.5 L 02/20/24 04:55: WBC 7.4, RBC 3.29 L, Hgb 7.7 L, Hct 25.5 L, MCV 77.5 L, MCH 23.4L, MCHC 30.2 L, RDW Std Deviation 48.0 H, RDW Coeff of David 16.9 H, Plt Count 208, MPV 9.9, Immature Gran % (Auto) 0.500, Neut % (Auto) 71.0 H, Lymph % (Auto) 14.4 L, Mesa % (Auto) 11.1 H, Eos % (Auto) 2.3, Baso % (Auto) 0.7, Absolute Neuts (auto) 5.3, Absolute Lymphs (auto) 1.07, Nucleated RBC % 0, Sodium 140, Potassium 3.9, Chloride 110 H, Carbon Dioxide 25.0, Anion Gap 5, BUN 16, Creatinine 0.86, Estim Creat Clear Calc 54.39, Est GFR (MDRD) Af Amer 84, Est GFR(MDRD) Non-Af 69, BUN/Creatinine Ratio 18.6, Glucose 97, Calcium 8.2 L, Total Bilirubin 0.50, AST 10 L, ALT 10 L, Alkaline Phosphatase 147 H, Total Protein 5.6 L, Albumin 2.5 L, Globulin 3.1, Albumin/Globulin Ratio 0.8 L Micro: Microbiology 02/19/24 17:15 Mucosa - Nose SARS-CoV-2, Influenza & RSV (PCR) - Final 02/19/24 Unknown Urine Catheter - Catheter Legionella Antigen - Final 02/19/24 Unknown Urine Catheter - Catheter Streptococcus pneumoniae Antigen (M - Final 02/19/24 12:18 Stool Stool Occult Blood (CARMEN) - Final Occult Blood Positive Radiography Diagnostic Testing: Radiology Impression Chest X-Ray 04/02/24 11:55 IMPRESSION: Right lower lobe infiltrate with small right pleural effusion with mild degree of vascular congestion in the right hemithorax. Electronically Signed: Jovon Freitas MD at 12:50 EDT , Physical Exam Narrative GENERAL: cooperative HEENT: Atraumatic; normocephalic EYES; Anicteric, pallor of the conjunctiva NECK; supple, normal thyroid, RESPIRATORY: Diminished to auscultation CARDIOVASCULAR: Regular S1 S2, GI: soft, normoactive bowel sounds, : No Renal angle tenderness; EXTREMITIES: No edema, no clubbing, MUSCULOSKELETAL: no muscle wasting NEURO: Awake; no lateralizing signs. SKIN: No Rash PSYCH; Flat affect Assessment & Plan Assessment/Plan (1) Symptomatic anemia: PLAN: Plan Patient is a 68-year-old lady presented with fatigue found to be anemic with hemoglobin of 6.6. Chest x-ray demonstrated right lower lobe infiltrate as wellas mild vascular congestion 1. Symptomatic anemia ? Suspected to be secondary to chronic GI bleed. Patient is on apixaban for systemic anticoagulation for A-fib. Patient was guaiac positive. An order was given for patient to be transfused with 1 unit PRBC. Iron studies undertaken prior to patient being transfused ? 02/20/2024; Transfused 1 unit PRBC hemoglobin up to 7.7. Seen in consultation by GI plan is for patient to undergo upper endoscopy and if negative colonoscopy. 2. Suspected GI bleed ? Patient is on apixaban held consult placed to Dr. Gonzalez with GI for possible endoscopic evaluation 3. Pneumonia - Suspected to be secondary to streptococcal pneumonia, Blood and sputum cultures sent. Patient placed on Rocephin and Zithromax and placed on oxygen titrated to keep Pulse Ox greater than 90 4. Paroxysmal A-fib ? Rate controlled on systemic anticoagulation with apixaban held given patient anemia 5. Suspected congestive heart failure?1 with preserved ejection fraction ? Possibly precipitated by patient being anemic patient was placed on diuretic therapy 2D echo ordered 6. Hypertension - Blood pressure controlled, home medications continued with dose adjustment as needed 7. Multiple sclerosis ? Per history patient is on baclofen for muscle relaxation 8. Hypothyroidism ? Patient is on levothyroxine did continue with home dose 9. Peripheral arterial disease ? With history of bilateral carotid artery stenosis, peripheral vascular occlusive disease. Patient was on systemic anticoagulation with apixaban held given about reasons 10. DVT prophylaxis ? Patient is on apixaban held Time spent in the patient's overall evaluation,decision-making process, review of diagnostic data, adjustment of management, discussion with other providers, nursing nursing and ancillary staff involved in patient's care documentation, 50 Minutes Charges/Coding Visit Charges Inpatient E&M: 16299 Subs Hosp 02/20/24 1146 <Electronically signed by Roman Mckeon MD> Cosigner Signature (if applicable): CC: ~ Signed [facility] Work Phone: 1(297) 710-160304-03-2024 Procedure [facility] 02-20-2024 Procedure [facility]04-02-2024 Consult note Author Kevin Gonzalez [facility] February 19, 2024 7:12pm Note Date/Time February 19, 2024 7:09 pm [facility] Medical Records Department [address] [place] [id number] Consultation - GI 02/19/24 1908 MR#: [id number] Acct: [id number] Name: ANGÉLICA YO Rep #:[id number] : 1955 68 From: Kevin Gonzalez DO PCP: Dr. Daron Benton MD Status:ADM IN Location: [place] [address] HPI Consult Data Date of Consult: 02/19/24 HPI Narrative Reason for Consultation: GI bleed HPI Narrative: ANGÉLICA YO, is a 68-year-old female with past medical history significant significant for atrial fibrillation on Eliquis, psoriatic arthritis, hyperlipidemia, bilateral carotid artery stenosis, and peripheral vascular occlusive disease who presented via EMS for dizziness and hypertension at home. Patient reports this morning dizzy, as if she needed to eat something. She ate some pizza and took her blood pressure which she reported was over 200. She took her lisinopril and then found a bottle of metoprolol in which she took 12- 1/2 mg. She reports her normal blood pressure is around 90/60 and her normalheart rate is 60 to 90s. She reports when her blood pressure was elevated she did have left arm pain. She does have pain between her scapula. Describes it as sharp and constant. Noexacerbating or alleviating factors. She says she has had similar pain and is unable to recall the diagnosis. She reports hemoptysis x 1 month. She denies any recent illness. She does report [place] [facility] She did not hit her head. She denies any recent hospitalization or travel. Imaging of the chest displayed : right lower lobe infiltrate with small right pleural effusion with mild degree of vascular congestion in the right hemithorax. In the ED she was discovered to have a hemoglobin of 6.6. I was consulted for acute onset anemia [facility] Medical History Angina pectoris Bilateral carotid artery stenosis Chronic pain syndrome Coronary artery disease Essential (primary) hypertension Fatty liver GERD (gastroesophageal reflux disease) Goiter History of transient ischemic attack (TIA) HLD (hyperlipidemia) Hypothyroidism Influenza A Multiple sclerosis Multiple sclerosis Nonobstructive atherosclerosis of coronary artery Nonsustained paroxysmal supraventricular tachycardia Osteoarthritis Osteoporosis Peripheral vascular occlusive disease Psoriasis Psoriatic arthritis Smoker Thrombocytopenia TIA (transient ischemic attack) Home Medications cholecalciferol (vitamin D3) 125 mcg (5,000 unit) tablet 5,000 unit PO DAILY supplement 12/16/13 [History Last Taken 12/01/23] gabapentin 800 mg tablet 800 mg PO TID MS 07/16/18 [History Last Taken 12/01/23] baclofen 20 mg tablet 20 mg PO Q6H MS 08/11/21 [History Last Taken 12/01/23] levothyroxine 50 mcg tablet 50 mcg PO DAILY thyroid 08/11/21 [History Last Taken 12/01/23] oxycodone 10 mg tablet 10 mg PO Q6H PRN pain 05/24/23 [History Last Taken 12/01/23] famotidine 20 mg tablet 20 mg PO DAILY 12/21/23 [History Last Taken Unknown] apixaban 5 mg tablet (Eliquis) 5 mg PO BID #60 tabs 01/11/24 [Rx Last Taken Unknown] dextromethorphan-guaifenesin ER 60 mg-1,200 mg tab,extend release,12hr (Mucinex DM) 1 tab PO Q12H PRN cough/congest 02/19/24 [History Last Taken Unknown] lisinopril 10 mg tablet 10 mg PO DAILY 02/19/24 [History Last Taken Unknown] Allergy/AdvReac Type Severity Reaction Status Date / Time colestipol [From Colestid] Allergy Mild unknown Verified 02/19/24 10:57 pregabalin [From Lyrica] Allergy Mild Hives Verified 02/19/24 10:57 amitriptyline Allergy Rash Verified 02/19/24 10:57 temazepam [From Restoril] AdvReac Mild Nausea/Vom/ Verified 02/19/24 10:57 Diarrhea Antihistamines - Alkylamine AdvReac Nausea/Vom/ Verified 02/19/24 10:57 Diarrhea Antihistamines - Ethanolamine AdvReac Nausea/Vom/ Verified 02/19/24 10:57 Diarrhea Antihistamines - AdvReac Nausea/Vom/ Verified 02/19/24 10:57 Ethylenediamine Diarrhea Antihistamines - Piperazine AdvReac Nausea/Vom/ Verified 02/19/24 10:57 Diarrhea Antihistamines - Piperidine AdvReac Nausea/Vom/ Verified 02/19/24 10:57 Diarrhea aspirin AdvReac I'M ON Verified 02/19/24 10:57 BLOOD THINNERS codeine AdvReac Nausea Verified 02/19/24 10:57 Corticosteroids AdvReac Upset Verified 02/19/24 10:57 (Glucocorticoids) Stomach morphine AdvReac Nausea Verified 02/19/24 10:57 Vvvgami-Nmx-Bdw Reductase AdvReac Nausea Verified 02/19/24 10:57 Inhibitor Family History Mother Cancer CAD (coronary artery disease) Brain tumor Grandfather CVA (cerebral vascular accident) Father CAD (coronary artery disease) Ruptured abdominal aortic aneurysm (AAA) Sister Brain aneurysm Surgical History Brain aneurysm Fracture of right lower leg H/O hemorrhoidectomy H/O: History of angioplasty of peripheral vessel History of angioplasty of peripheral vessel (07/11/19) History of appendectomy History of section History of cholecystectomy History of hemorrhoidectomy History of hysterectomy History of left breast biopsy History of left heart catheterization (01/25/15) History of left-sided carotid endarterectomy History of partial thyroidectomy (11/30/05) History of right-sided carotid endarterectomy S/P coil embolization of cerebral aneurysm S/P hysterectomy S/P insertion of iliac artery stent S/P thyroidectomy Stenosis of left subclavian artery Social History (Updated 02/19/24 @ 17:37 by Gale Beaulieu) household members: none housing: apartment Smoking Status: Current every day smoker tobacco type: cigarettes alcohol intake: never caffeine: Yes Type: coffee and tea ROS ROS Narrative GENERAL: denies fever, chills, night sweats, weight loss, anorexia HEENT: denies headache, sinus congestion, or drainage, dysphagia RESPIRATORY: dyspnea on exertion CARDIAC: denies chest pain, palpitations, orthopnea, PND GASTROINTESTINAL: denies abdominal pain, nausea, vomiting, melena, GENITOURINARY: denies dysuria, urgency, frequency, heamaturia EXTREMITY: denies swelling MUSCULOSKELETAL: denies current joint pain or tenderness NEUROLOGIC: denies focal numbness, weakness, tingling HEMATOLOGIC: denies easy bruising and/or hemorrhage INTEGUMENT: denies rashes PSYCHIATRIC: denies suicidal or homicidal ideation Physical Exam Narrative GENERAL: cooperative HEENT: Atraumatic; normocephalic EYES; Anicteric, pallor of the conjunctiva NECK; supple, normal thyroid, RESPIRATORY: Diminished to auscultation CARDIOVASCULAR: Regular S1 S2, GI: soft, normoactive bowel sounds, : No Renal angle tenderness; EXTREMITIES: No edema, no clubbing, MUSCULOSKELETAL: no muscle wasting NEURO: Awake; no lateralizing signs. SKIN: No Rash PSYCH; Flat affect Lab / Micro Data 02/19/24 17:30 02/19/24 11:15 Labs: Laboratory Results - last 24 hr 02/19/24 11:15: WBC 8.1, RBC 2.90 L, Hgb 6.6 L, Hct 22.4 L, MCV 77.2 L, MCH 22.8L, MCHC 29.5 L, RDW Std Deviation 48.0 H, RDW Coeff of David 17.1 H, Plt Count 193, MPV 10.0, Immature Gran % (Auto) 0.500, Neut % (Auto) 73.5 H, Lymph % (Auto) 14.5 L, Mesa % (Auto) 8.5, Eos % (Auto) 2.6, Baso % (Auto) 0.4, Absolute Neuts (auto) 5.9, Absolute Lymphs (auto) 1.17, Nucleated RBC % 0, Sodium 137, Potassium 3.8, Chloride 106, Carbon Dioxide 25.0, Anion Gap 6, BUN 21 H, Creatinine 1.00, Estim Creat Clear Calc 49.70, Est GFR (MDRD) Af Amer 71, Est GFR (MDRD) Non-Af 58 L, BUN/Creatinine Ratio 21.0 H, Glucose 128 H, Calcium 8.3 L, Troponin I High Sens 6 02/19/24 11:18: POC Glucose 128 H 02/19/24 12:20: Blood Type O POSITIVE, Antibody Screen NEGATIVE, Crossmatch See Detail 02/19/24 14:10: Lactic Acid 1.0 02/19/24 15:00: Troponin I High Sens 15 02/19/24 17:30: Hgb 8.5 L, Hct 28.6 L Micro: Microbiology 02/19/24 17:15 Mucosa - Nose SARS-CoV-2, Influenza & RSV (PCR) - Final 02/19/24 Unknown Urine Catheter - Catheter Legionella Antigen - Final 02/19/24 Unknown Urine Catheter - Catheter Streptococcus pneumoniae Antigen (M - Final 02/19/24 12:18 Stool Stool Occult Blood (CARMEN) - Final Occult Blood Positive Imaging Radiology Impression Chest X-Ray 02/19/24 11:55 IMPRESSION: Right lower lobe infiltrate with small right pleural effusion with mild degree of vascular congestion in the right hemithorax. Electronically Signed: Jovon Freitas MD at 12:50 EDT , Assessment & Plan Assessment/Plan (1) Symptomatic anemia: PLAN: Plan a 68-year-old lady presented with fatigue and shortness of breath found to be anemic with hemoglobin of 6.6. Chest x-ray demonstrated right lower lobe infiltrate as well as mild vascular congestion She appears to have symptomatic anemia. I suspect that is a upper GI bleed withan acute on chronic GI blood loss. Her MCV is very low. Usually signifies irondeficiency anemia. I think she would benefit from an upper endoscopy. If that is negative that she may need a colonoscopy. Patient is on apixaban for systemicanticoagulation for A-fib. Patient was guaiac positive. An order was given forpatient to be transfused with 1 unit PRBC. Iron studies undertaken prior to patient being transfused. She was explained alternatives, risk, benefits including not withstanding bleeding, infection, sepsis, perforation, need for emergent urgent . She will have an ASA of 3. Charges/Coding Visit Charges Inpatient E&M: 57605 Init Hosp L3 02/19/241911 <Electronically signed by Kevin Friend DO> Cosigner Signature (if applicable): CC: Dr. Daron Benton MD~ Signed [facility] Work Phone: 1(868) 779-520304-02-2024 History and physical note Author Roman Mckeon [facility] February 19, 2024 3:25pm Note Date/Time February 19, 2024 2:26 pm [facility] Medical Records Department [address] [place] [address] H&P Exam - Hospitalist 02/19/24 1426 MR#: [id number] Acct: [id number] Name: ANGÉLICA YO Rep #:[id number] : 1955 68 From: Roman Mckeon MD PCP: Dr. Daron Benton MD Status:REG ER Location: ED HPI - General General Date of Admission: 02/19/24 Date of Service: 02/19/24 Chief Complaint: Lightheadedness HPI Narrative ANGÉLICA YO, is a 68 F with multiple comorbidities including paroxysmal A-fib on systemic anticoagulation with apixaban who presented to the emergency department with lightheadedness. Per patient she has not been feeling well for the past couple of days. On the day of her admission she did experience lightheadedness. She apparently also broke out into a cold sweat and felt her blood pressure was elevated presented to the emergency department as a result. Patient was found to have a hemoglobin of 6.6. Chest x-ray obtained as part of her evaluation demonstrated right lower lobe infiltrate. Patient was also foundto have mild degree of vascular congestion. Admitted to monitored bed for further management [facility] Medical History Angina pectoris Bilateral carotid artery stenosis Chronic pain syndrome Coronary artery disease Essential (primary) hypertension Fatty liver GERD (gastroesophageal reflux disease) Goiter History of transient ischemic attack (TIA) HLD (hyperlipidemia) Hypothyroidism Influenza A Multiple sclerosis Multiple sclerosis Nonobstructive atherosclerosis of coronary artery Nonsustained paroxysmal supraventricular tachycardia Osteoarthritis Osteoporosis Peripheral vascular occlusive disease Psoriasis Psoriatic arthritis Smoker Thrombocytopenia TIA (transient ischemic attack) Home Medications cholecalciferol (vitamin D3) 125 mcg (5,000 unit) tablet 5,000 unit PO DAILY supplement 12/16/13 [History Last Taken 12/01/23] gabapentin 800 mg tablet 800 mg PO TID MS 07/16/18 [History Last Taken 12/01/23] baclofen 20 mg tablet 20 mg PO Q6H MS 08/11/21 [History Last Taken 12/01/23] levothyroxine 50 mcg tablet 50 mcg PO DAILY thyroid 08/11/21 [History Last Taken 12/01/23] oxycodone 10 mg tablet 10 mg PO Q6H PRN pain 05/24/23 [History Last Taken 12/01/23] famotidine 20 mg tablet 20 mg PO DAILY 12/21/23 [History Last Taken Unknown] apixaban 5 mg tablet (Eliquis) 5 mg PO BID #60 tabs 01/11/24 [Rx Last Taken Unknown] dextromethorphan-guaifenesin ER 60 mg-1,200 mg tab,extend release,12hr (Mucinex DM) 1 tab PO Q12H PRN cough/congest 02/19/24 [History Last Taken Unknown] lisinopril 10 mg tablet 10 mg PO DAILY 02/19/24 [History Last Taken Unknown] Allergy/AdvReac Type Severity Reaction Status Date / Time colestipol [From Colestid] Allergy Mild unknown Verified 02/19/24 10:57 pregabalin [From Lyrica] Allergy Mild Hives Verified 02/19/24 10:57 amitriptyline Allergy Rash Verified 02/19/24 10:57 temazepam [From Restoril] AdvReac Mild Nausea/Vom/ Verified 02/19/24 10:57 Diarrhea Antihistamines - Alkylamine AdvReac Nausea/Vom/ Verified 02/19/24 10:57 Diarrhea Antihistamines - Ethanolamine AdvReac Nausea/Vom/ Verified 02/19/24 10:57 Diarrhea Antihistamines - AdvReac Nausea/Vom/ Verified 02/19/24 10:57 Ethylenediamine Diarrhea Antihistamines - Piperazine AdvReac Nausea/Vom/ Verified 02/19/24 10:57 Diarrhea Antihistamines - Piperidine AdvReac Nausea/Vom/ Verified 02/19/24 10:57 Diarrhea aspirin AdvReac I'M ON Verified 02/19/24 10:57 BLOOD THINNERS codeine AdvReac Nausea Verified 02/19/24 10:57 Corticosteroids AdvReac Upset Verified 02/19/24 10:57 (Glucocorticoids) Stomach morphine AdvReac Nausea Verified 02/19/24 10:57 Meqkoqx-JFJ-HeH Reductase AdvReac Nausea Verified 02/19/24 10:57 Inhibitor [Ugmdavq-Jgi-Xzg Reductase Inhibitor] Family History Mother Cancer CAD (coronary artery disease) Brain tumor Grandfather CVA (cerebral vascular accident) Father CAD (coronary artery disease) Ruptured abdominal aortic aneurysm (AAA) Sister Brain aneurysm Surgical History Brain aneurysm Fracture of right lower leg H/O hemorrhoidectomy H/O: History of angioplasty of peripheral vessel History of angioplasty of peripheral vessel (07/11/19) History of appendectomy History of section History of cholecystectomy History of hemorrhoidectomy History of hysterectomy History of left breast biopsy History of left heart catheterization (01/25/15) History of left-sided carotid endarterectomy History of partial thyroidectomy (11/30/05) History of right-sided carotid endarterectomy S/P coil embolization of cerebral aneurysm S/P hysterectomy S/P insertion of iliac artery stent S/P thyroidectomy Stenosis of left subclavian artery Social History household members: none Smoking Status: Current every day smoker tobacco type: cigarettes alcohol intake: never caffeine: Yes Type: coffee and tea ROS ROS Narrative GENERAL: denies fever, chills, night sweats, weight loss, anorexia HEENT: denies headache, sinus congestion, or drainage, dysphagia RESPIRATORY: dyspnea on exertion CARDIAC: denies chest pain, palpitations, orthopnea, PND GASTROINTESTINAL: denies abdominal pain, nausea, vomiting, melena, GENITOURINARY: denies dysuria, urgency, frequency, heamaturia EXTREMITY: denies swelling MUSCULOSKELETAL: denies current joint pain or tenderness NEUROLOGIC: denies focal numbness, weakness, tingling HEMATOLOGIC: denies easy bruising and/or hemorrhage INTEGUMENT: denies rashes PSYCHIATRIC: denies suicidal or homicidal ideation Vital Signs Vital Signs Vital Signs: 02/19/24 10:52 02/19/24 10:52 02/19/24 10:58 Temperature 98.1 F 98.1 F Temperature Source Oral Oral Pulse Rate 95 96 Respiratory Rate 18 13 Respiratory Effort Normal Non-Labored Respiratory Pattern Normal Blood Pressure 80/51 L 95/52 L Blood Pressure Mean 60 66 Blood Pressure Source Blood Pressure Position Blood Pressure Location Pulse Ox 94 94 Oxygen Delivery Method Room Air Room Air 02/19/24 11:10 02/19/24 11:30 02/19/24 11:42 Temperature Temperature Source Pulse Rate 99 92 87 Respiratory Rate 14 12 14 Respiratory Effort Respiratory Pattern Blood Pressure 80/51 L 99/55 L 90/70 Blood Pressure Mean 60 69 76 Blood Pressure Source Blood Pressure Position Blood Pressure Location Pulse Ox 92 94 91 Oxygen Delivery Method Room Air Room Air Room Air 02/19/24 11:43 02/19/24 11:45 02/19/24 12:54 Temperature Temperature Source Pulse Rate 81 97 Respiratory Rate 12 Respiratory Effort Respiratory Pattern Blood Pressure 97/62 90/60 113/68 Blood Pressure Mean 73 70 83 Blood Pressure Source Blood Pressure Position Blood Pressure Location Pulse Ox 96 Oxygen Delivery Method Room Air 02/19/24 13:45 Temperature 98.2 F Temperature Source Oral Pulse Rate 98 Respiratory Rate 20 H Respiratory Effort Respiratory Pattern Blood Pressure 113/93 H Blood Pressure Mean 99 Blood Pressure Source Monitor Blood Pressure Position Semi-Fowlers Blood Pressure Location Right Arm Pulse Ox 93 Oxygen Delivery Method Room Air Weight Weight: 61.4 kg Body Mass Index (BMI) 21.8 Physical Exam Narrative GENERAL: cooperative HEENT: Atraumatic; normocephalic EYES; Anicteric, pallor of the conjunctiva NECK; supple, normal thyroid, RESPIRATORY: Diminished to auscultation CARDIOVASCULAR: Regular S1 S2, GI: soft, normoactive bowel sounds, : No Renal angle tenderness; EXTREMITIES: No edema, no clubbing, MUSCULOSKELETAL: no muscle wasting NEURO: Awake; no lateralizing signs. SKIN: No Rash PSYCH; Flat affect Results Lab / Micro Data 02/19/24 11:15 02/19/24 11:15 Labs: Laboratory Results - last 24 hr 02/19/24 11:15: WBC 8.1, RBC 2.90 L, Hgb 6.6 L, Hct 22.4 L, MCV 77.2 L, MCH 22.8L, MCHC 29.5 L, RDW Std Deviation 48.0 H, RDW Coeff of David 17.1 H, Plt Count 193, MPV 10.0, Immature Gran % (Auto) 0.500, Neut % (Auto) 73.5 H, Lymph % (Auto) 14.5 L, Mesa % (Auto) 8.5, Eos % (Auto) 2.6, Baso % (Auto) 0.4, Absolute Neuts (auto) 5.9, Absolute Lymphs (auto) 1.17, Nucleated RBC % 0, Sodium 137, Potassium 3.8, Chloride 106, Carbon Dioxide 25.0, Anion Gap 6, BUN 21 H, Creatinine 1.00, Estim Creat Clear Calc 49.70, Est GFR (MDRD) Af Amer 71, Est GFR(MDRD) Non-Af 58 L, BUN/Creatinine Ratio 21.0 H, Glucose 128 H, Calcium 8.3 L, Troponin I High Sens 6 02/19/24 11:18: POC Glucose 128 H 02/19/24 12:20: Blood Type O POSITIVE, Antibody Screen NEGATIVE, Crossmatch See Detail Micro: Microbiology 02/19/24 12:18 Stool Stool Occult Blood (CARMEN) - Final Occult Blood Positive Imaging Radiology Impression Chest X-Ray 02/19/24 11:55 IMPRESSION: Right lower lobe infiltrate with small right pleural effusion with mild degree of vascular congestion in the right hemithorax. Electronically Signed: Jovon Freitas MD at 12:50 EDT , Assessment & Plan Assessment/Plan (1) Symptomatic anemia: PLAN: Plan Patient is a 68-year-old lady presented with fatigue found to be anemic with hemoglobin of 6.6. Chest x-ray demonstrated right lower lobe infiltrate as wellas mild vascular congestion 1. Symptomatic anemia ? Suspected to be secondary to chronic GI bleed. Patient is on apixaban for systemic anticoagulation for A-fib. Patient was guaiac positive. An order was given for patient to be transfused with 1 unit PRBC. Iron studies undertaken prior to patient being transfused 2. Suspected GI bleed ? Patient is on apixaban held consult placed to Dr. Gonzalez with GI for possible endoscopic evaluation 3. Pneumonia - Suspected to be secondary to streptococcal pneumonia, Blood and sputum cultures sent. Patient placed on Rocephin and Zithromax and placed on oxygen titrated to keep Pulse Ox greater than 90 4. Paroxysmal A-fib ? Rate controlled on systemic anticoagulation with apixaban held given patient anemia 5. Suspected congestive heart failure?1 with preserved ejection fraction ? Possibly precipitated by patient being anemic patient was placed on diuretic therapy 2D echo ordered 6. Hypertension - Blood pressure controlled, home medications continued with dose adjustment as needed 7. Multiple sclerosis ? Per history patient is on baclofen for muscle relaxation 8. Hypothyroidism ? Patient is on levothyroxine did continue with home dose 9. Peripheral arterial disease ? With history of bilateral carotid artery stenosis, peripheral vascular occlusive disease. Patient was on systemic anticoagulation with apixaban held given about reasons 10. DVT prophylaxis ? Patient is on apixaban held Time spent in the patient's overall evaluation,decision-making process, review of diagnostic data, adjustment of management, discussion with other providers, nursing nursing and ancillary staff involved in patient's care documentation, 75 Minutes Advance planning; did discuss with the patient and family regarding advanced directives as well as CODE STATUS. Did explain the various scenarios involved (FULL CODE, DNR CCA, DNR CCA with no intubation, and DNR CC and what each meant) patient elected remain full code with CPR and intubation if needed. Order was placed. Time spent on discussion 18 minutes. Charges/Coding Visit Charges Inpatient E&M: 53932 Init Hosp L3 Procedures Hospitalists Procedures: 91715 Advncd Care Plan 30 Min 02/19/24 1693 <Electronically signed by Roman Mckeon MD> Cosigner Signature (if applicable): CC: Dr. Roman Mckeon MD; Dr. Daron Benton MD~ Signed [facility] Work Phone: 1(354) 720-208704-02-2024 Discharge summary Author Jeffy Willoughby [facility] February 19, 2024 2:59pm Note Date/Time February 19, 2024 12:1 5pm [facility] Medical Records Department [address] [place] [address] Emergency Department Summary 02/19/24 MR#: [id number] Acct: [id number] Name: ANGÉLICA YO Rep #:[id number] : 1955 68 From: Jeffy Willoughby MD PCP: Dr. Daron Benton MD Status:REG ER Location: ED ADDENDUM by Dr. Jeffy Willoughby MD on 02/19/24 at 1459 EKG reveals atrial fibrillation with a ventricular rate 87. QRS duration 84 ms. QT duration 414 ms. [place] is normal. QT is prolonged. 02/19/24 1459<Electronically signed by Jeffy Willoughby MD> Cosigner Signature (if applicable): 02/19/24 1346 <Electronically signed by Bernice Warren RN> cc: Dr. Daron Benton MD ~* Signed HPI <Bernice Warren RN - Last Filed: 02/19/24 13:46> History of Present Illness Chief Complaint: Hypertension Informant: patient Onset/Context/Timing Onset: Today Context: Sudden Onset Timing: Continuous Current Severity: Moderate Maximum Severity: Moderate Worsened by: Nothing Relieved by: Nothing Associated Symptoms Associated Symptoms: Left arm pain and pain between scapula Narrative Narrative: Patient is a 68-year-old female with past medical history significant significant for atrial fibrillation on Eliquis, psoriatic arthritis, hyperlipidemia, bilateral carotid artery stenosis, and peripheral vascular occlusive disease who presented via EMS for dizziness and hypertension at home. Patient reports this morning dizzy, as if she needed to eat something. She ate some pizza and took her blood pressure which she reported was over 200. She took her lisinopril and then found a bottle of metoprolol in which she took 12-1/2 mg. She reports her normal blood pressure is around 90/60 and her normal heart rate is 60 to 90s. She reports when her blood pressure was elevated she did have left arm pain. She does have pain between her scapula. Describes it as sharp and constant. No exacerbating or alleviating factors. She says she has had similar pain and is unable to recall the diagnosis. She reports hemoptysis x 1 month. She denies any recent illness. She does report she fell on Easter in the driveway onto her buttocks. She did not hit her head. She denies any recent hospitalization or travel. Prior similar symptoms: Yes Recent Illness/Hospitalization: No [facility] <Bernice Warren RN - Last Filed: 02/19/24 13:46> [facility] Medical History Angina pectoris Bilateral carotid artery stenosis Chronic pain syndrome Coronary artery disease Essential (primary) hypertension Fatty liver GERD (gastroesophageal reflux disease) Goiter History of transient ischemic attack (TIA) HLD (hyperlipidemia) Hypothyroidism Influenza A Multiple sclerosis Multiple sclerosis Nonobstructive atherosclerosis of coronary artery Nonsustained paroxysmal supraventricular tachycardia Osteoarthritis Osteoporosis Peripheral vascular occlusive disease Psoriasis Psoriatic arthritis Smoker Thrombocytopenia TIA (transient ischemic attack) Home Medications cholecalciferol (vitamin D3) 125 mcg (5,000 unit) tablet 5,000 unit PO DAILY supplement 12/16/13 [History Last Taken 12/01/23] gabapentin 800 mg tablet 800 mg PO TID MS 07/16/18 [History Last Taken 12/01/23] baclofen 20 mg tablet 20 mg PO Q6H MS 08/11/21 [History Last Taken 12/01/23] levothyroxine 50 mcg tablet 50 mcg PO DAILY thyroid 08/11/21 [History Last Taken 12/01/23] oxycodone 10 mg tablet 10 mg PO Q6H PRN pain 05/24/23 [History Last Taken 12/01/23] famotidine 20 mg tablet 20 mg PO DAILY 12/21/23 [History Last Taken Unknown] apixaban 5 mg tablet (Eliquis) 5 mg PO BID #60 tabs 01/11/24 [Rx Last Taken Unknown] dextromethorphan-guaifenesin ER 60 mg-1,200 mg tab,extend release,12hr (Mucinex DM) 1 tab PO Q12H PRN cough/congest 02/19/24 [History Last Taken Unknown] lisinopril 10 mg tablet 10 mg PO DAILY 02/19/24 [History Last Taken Unknown] Allergy/AdvReac Type Severity Reaction Status Date / Time colestipol [From Colestid] Allergy Mild unknown Verified 02/19/24 10:57 pregabalin [From Lyrica] Allergy Mild Hives Verified 02/19/24 10:57 amitriptyline Allergy Rash Verified 02/19/24 10:57 temazepam [From Restoril] AdvReac Mild Nausea/Vom/ Verified 02/19/24 10:57 Diarrhea Antihistamines - Alkylamine AdvReac Nausea/Vom/ Verified 02/19/24 10:57 Diarrhea Antihistamines - Ethanolamine AdvReac Nausea/Vom/ Verified 02/19/24 10:57 Diarrhea Antihistamines - AdvReac Nausea/Vom/ Verified 02/19/24 10:57 Ethylenediamine Diarrhea Antihistamines - Piperazine AdvReac Nausea/Vom/ Verified 02/19/24 10:57 Diarrhea Antihistamines - Piperidine AdvReac Nausea/Vom/ Verified 02/19/24 10:57 Diarrhea aspirin AdvReac I'M ON Verified 02/19/24 10:57 BLOOD THINNERS codeine AdvReac Nausea Verified 02/19/24 10:57 Corticosteroids AdvReac Upset Verified 02/19/24 10:57 (Glucocorticoids) Stomach morphine AdvReac Nausea Verified 02/19/24 10:57 Ezbpphg-MFY-OsY Reductase AdvReac Nausea Verified 02/19/24 10:57 Inhibitor [Iovpdxp-Vkk-Sho Reductase Inhibitor] Family History Mother Cancer CAD (coronary artery disease) Brain tumor Grandfather CVA (cerebral vascular accident) Father CAD (coronary artery disease) Ruptured abdominal aortic aneurysm (AAA) Sister Brain aneurysm Surgical History Brain aneurysm Fracture of right lower leg H/O hemorrhoidectomy H/O: History of angioplasty of peripheral vessel History of angioplasty of peripheral vessel (07/11/19) History of appendectomy History of section History of cholecystectomy History of hemorrhoidectomy History of hysterectomy History of left breast biopsy History of left heart catheterization (01/25/15) History of left-sided carotid endarterectomy History of partial thyroidectomy (11/30/05) History of right-sided carotid endarterectomy S/P coil embolization of cerebral aneurysm S/P hysterectomy S/P insertion of iliac artery stent S/P thyroidectomy Stenosis of left subclavian artery Social History household members: none Smoking Status: Current every day smoker tobacco type: cigarettes alcohol intake: never caffeine: Yes Type: coffee and tea ROS <Bernice Warren RN - Last Filed: 02/19/24 13:46> ROS ED Constitutional Constitutional ED: Denies chills, fever(s) or sweats Eyes Eyes: Denies change in vision ENT ENT ED: Denies rhinorrhea or sore throat Cardiovascular Cardiovascular: Denies chest pain, orthopnea, palpitations or racing heartbeat Respiratory/Chest Respiratory/Chest: Reports cough, sputum and other Details: Hemoptysis x 1 month; Denies dyspnea or orthopnea Gastrointestinal Gastrointestinal: Denies abdominal pain, constipation, diarrhea, melena, nausea or vomiting Genitourinary Genitourinary ED: Denies dysuria, hematuria or urinary frequency Musculoskeletal Musculoskeletal: Reports other Details: Pain between scapula ; Denies arthralgias, myalgias or neck pain Integumentary Denies abscess, Abrasions or rash Neurologic Neurologic: Denies headache(s), paresthesias or weakness Psychiatric Psychiatric: Denies anxiety or depression Hematologic/Lymphatic Hematologic/Lymphatic: Reports systems reviewed and no addt'l complaints, exceptas documented and easy bruising EXAM <Bernice Warren RN - Last Filed: 02/19/24 13:46> Physical Exam Narrative Exam Narrative: Patient is pale, awake and alert. Cooperative. Good historian. Const Vital Signs: 02/19/24 10:52 02/19/24 10:52 02/19/24 10:58 Temperature 98.1 F 98.1 F Temperature Source Oral Oral Pulse Rate 95 96 Respiratory Rate 18 13 Respiratory Effort Normal Non-Labored Respiratory Pattern Normal Blood Pressure 80/51 L 95/52 L Blood Pressure Mean 60 66 Blood Pressure Source Blood Pressure Position Blood Pressure Location Pulse Ox 94 94 Oxygen Delivery Method Room Air Room Air 02/19/24 11:10 02/19/24 11:30 02/19/24 11:42 Temperature Temperature Source Pulse Rate 99 92 87 Respiratory Rate 14 12 14 Respiratory Effort Respiratory Pattern Blood Pressure 80/51 L 99/55 L 90/70 Blood Pressure Mean 60 69 76 Blood Pressure Source Blood Pressure Position Blood Pressure Location Pulse Ox 92 94 91 Oxygen Delivery Method Room Air Room Air Room Air 02/19/24 11:43 02/19/24 11:45 02/19/24 12:54 Temperature Temperature Source Pulse Rate 81 97 Respiratory Rate 12 Respiratory Effort Respiratory Pattern Blood Pressure 97/62 90/60 113/68 Blood Pressure Mean 73 70 83 Blood Pressure Source Blood Pressure Position Blood Pressure Location Pulse Ox 96 Oxygen Delivery Method Room Air 02/19/24 13:45 02/19/24 14:00 02/19/24 14:31 Temperature 98.2 F 98.2 F 98.1 F Temperature Source Oral Oral Pulse Rate 98 93 84 Respiratory Rate 20 H 18 22 H Respiratory Effort Respiratory Pattern Blood Pressure 113/93 H 116/80 119/65 Blood Pressure Mean 99 92 83 Blood Pressure Source Monitor Monitor Blood Pressure Position Semi-Fowlers Semi-Fowlers Blood Pressure Location Right Arm Right Arm Pulse Ox 93 93 94 Oxygen Delivery Method Room Air Room Air Positive well nourished and well developed General Appearance ED: well developed and NAD HEENT Reports moist mucous membranes HEENT Narrative: Patient with fall in October in which she still has a tender area on the right occiput with 0.5 cm round dark area. No abrasion, drainage, or bleeding noted. trauma and tenderness Eyes PERRL and EOMs intact bilaterally Neck no lymphadenopathy, supple and no JVD Chest Wall inspection of chest normal and palpation of chest normal Resp normal respiratory effort and clear to auscultation bilaterally Auscultation: Negative for rales, rhonchi or wheezes Cardio S1 normal heart sound, S2 normal heart sound and no murmurs Rhythm: abnormal rhythm irregularly irregular GI normal to inspection, nondistended, normoactive bowel sounds and non-tender Palpation: soft Narrative: Denies dysuria, hematuria, and urinary frequency Back/Spine no CVA tenderness Cervical Spine: Negative for cervical spine tenderness Thoracic Spine / Upper Back: Negative for thoracic spinal tenderness Lumbar Spine / Lower Back: Negative for lumbar spinal tenderness Extremity normal to inspection General Extremety ED: Negative for edema or tenderness General Extremity: Negative for edema Neuro oriented x3 Sensorium / Orientation: alert Motor Exam: general weakness Psych mental status grossly normal Skin no rashes or lesions noted, no wounds and skin turgor normal <Dr. Jeffy Willoughby MD - Last Filed: 02/19/24 14:39> Physical Exam Const Vital Signs: 02/19/24 10:52 02/19/24 10:52 02/19/24 10:58 Temperature 98.1 F 98.1 F Temperature Source Oral Oral Pulse Rate 95 96 Respiratory Rate 18 13 Respiratory Effort Normal Non-Labored Respiratory Pattern Normal Blood Pressure 80/51 L 95/52 L Blood Pressure Mean 60 66 Blood Pressure Source Blood Pressure Position Blood Pressure Location Pulse Ox 94 94 Oxygen Delivery Method Room Air Room Air 02/19/24 11:10 02/19/24 11:30 02/19/24 11:42 Temperature Temperature Source Pulse Rate 99 92 87 Respiratory Rate 14 12 14 Respiratory Effort Respiratory Pattern Blood Pressure 80/51 L 99/55 L 90/70 Blood Pressure Mean 60 69 76 Blood Pressure Source Blood Pressure Position Blood Pressure Location Pulse Ox 92 94 91 Oxygen Delivery Method Room Air Room Air Room Air 02/19/24 11:43 02/19/24 11:45 02/19/24 12:54 Temperature Temperature Source Pulse Rate 81 97 Respiratory Rate 12 Respiratory Effort Respiratory Pattern Blood Pressure 97/62 90/60 113/68 Blood Pressure Mean 73 70 83 Blood Pressure Source Blood Pressure Position Blood Pressure Location Pulse Ox 96 Oxygen Delivery Method Room Air 02/19/24 13:45 02/19/24 14:00 02/19/24 14:31 Temperature 98.2 F 98.2 F 98.1 F Temperature Source Oral Oral Pulse Rate 98 93 84 Respiratory Rate 20 H 18 22 H Respiratory Effort Respiratory Pattern Blood Pressure 113/93 H 116/80 119/65 Blood Pressure Mean 99 92 83 Blood Pressure Source Monitor Monitor Blood Pressure Position Semi-Fowlers Semi-Fowlers Blood Pressure Location Right Arm Right Arm Pulse Ox 93 93 94 Oxygen Delivery Method Room Air Room Air [facility] <Bernice Warren RN - Last Filed: 02/19/24 13:46> [facility] Narrative Medical decision making narrative: Patient placed on desk monitor. IV line initiated. Labwork obtained to evaluate for leukocytosis, anemia, and electrolyte derangement. Chest x-ray obtained to evaluate for acute lung pathology, cardiac size, or mediastinal abnormality. EKG obtained to evaluate for cardiac arrhythmia/ischemia. History & Record Review Discussion w/independent historian: Patient Lab Data Labs: Laboratory Results - last 24 hr 02/19/24 02/19/24 02/19/24 11:15 11:18 12:20 WBC 8.1 RBC 2.90 L Hgb 6.6 L Hct 22.4 L MCV 77.2 L MCH 22.8 L MCHC 29.5 L RDW Std Deviation 48.0 H RDW Coeff of David 17.1 H Plt Count 193 MPV 10.0 Immature Gran % (Auto) 0.500 Neut % (Auto) 73.5 H Lymph % (Auto) 14.5 L Mesa % (Auto) 8.5 Eos % (Auto) 2.6 Baso % (Auto) 0.4 Absolute Neuts (auto) 5.9 Absolute Lymphs (auto) 1.17 Nucleated RBC % 0 Sodium 137 Potassium 3.8 Chloride 106 Carbon Dioxide 25.0 Anion Gap 6 BUN 21 H Creatinine 1.00 Estim Creat Clear Calc 49.70 Est GFR (MDRD) Af Amer 71 Est GFR (MDRD) Non-Af 58 L BUN/Creatinine Ratio 21.0 H Glucose 128 H Calcium 8.3 L Troponin I High Sens 6 POC Glucose 128 H Blood Type O POSITIVE Antibody Screen NEGATIVE Crossmatch See Detail Radiography Chest X-Ray - ED: 1 View Diagnostic Testing: Clinical Impression(s) from Imaging Studies Chest X-Ray 02/19/24 11:55 IMPRESSION: Right lower lobe infiltrate with small right pleural effusion with mild degree of vascular congestion in the right hemithorax. Electronically Signed: Jovon Freitas MD at 12:50 EDT , EKG Initial EKG: Attestation: I personally reviewed and interpreted this EKG as follows: Interpretation: Atrial Fibrillation Comments: A-fib with heart rate 87. No ischemia noted. Prior EKG tracings: not available for review Differential Diagnosis Chest pain/SOB: ACS and pneumonia Management Discussion w/another healthcare provider: Other (Dr. Onofre, ED provider.) Treatment and Re-Evaluation :: Blood pressure was obtained in both arms to rule out dissection. [id number] glucose was obtained to rule out hypoglycemia. It was 128. Lab work and imaging reviewed. CBC shows normal white blood cell count of 8.1 with neutrophils 73.5%. Hemoglobin was 6.6. This is decreased from 8.9 on 01/18/2024. Hematocrit is 22.4. Platelets are 193. Chemistry shows normal sodium 137, potassium 3.8, BUN slightly elevated at 21, creatinine is 1.0, glucose is 128, and calcium is 8.3. High-sensitivity troponin is negative at 6. Stool was sentfor occult blood. Patient does admit to hemoptysis x 1 month. Type and screen and type and cross ordered. Patient to be transfused 1 unit PRBCs. Chest x-rayshows a right lower lobe infiltrate with small right pleural effusion and mild vascular congestion. Patient ordered azithromycin and ceftriaxone. Case discussed with hospitalist by Dr. Willoughby for admission. Upon reevaluation, patient resting in bed awake and alert, receiving PRBCs. Patient aware of her decreased hemoglobin, stool positive for occult blood, and right lower lobe pneumonia. She is agreeable to admission. <Dr. Jeffy Willoughby MD - Last Filed: 02/19/24 14:39> [facility] MDM Narrative Medical decision making narrative: Patient placed on desk monitor. IV line initiated. Labwork obtained to evaluate for leukocytosis, anemia, and electrolyte derangement. Chest x-ray obtained to evaluate for acute lung pathology, cardiac size, or mediastinal abnormality. EKG obtained to evaluate for cardiac arrhythmia/ischemia. I have personally performed a face to face assessment of the patient and have reviewed the JENNIFER Note. I performed a substantive portion of the visit including all aspects of the following. My white findings include: History is remarkable for dyspnea, fatigue, lack of energy. She denies black ormaroon-colored stool. She denies hematuria. She has vague chest discomfort as well. She denies orthopnea or PND. Exam is remarkable for pallor. Conjunctive is pale. There is erythema increasing the plan. Lungs reveal no wheeze rales rhonchi. Heart is regular. Rate is normal. There is no murmur, gallop or rub. Abdomen soft nontender. Patient has evidence of prior hemorrhoids. There is no active bleeding noted. On rectal exam there is no masses appreciated. Stool was brown. Stool sent foroccult blood. Medical Decision Making since clinically patient appears anemic obtain CBC to assess H&H and BMP to assess BUN to creatinine ratio is also electrolyte functions. Since patient has symptoms of anemia and is anemic she was typed andscreened and typed and crossed for 1 unit of blood. She received that 1 unit ofblood. Stool was positive for occult blood. Other additions or changes: Transfuse unit of blood. Contact hospitalist for admission Lab Data Attestation: I reviewed the patient's lab results. Lab results narrative: CBC is marked for an H&H 6.6 and 2.4 which is approximately 2 g drop from prior. Basic metabolic panel is remarked for noted BUN to creatinine ratio 21:1. Labs: Laboratory Results - last 24 hr 02/19/24 02/19/24 02/19/24 11:15 11:18 12:20 WBC 8.1 RBC 2.90 L Hgb 6.6 L Hct 22.4 L MCV 77.2 L MCH 22.8 L MCHC 29.5 L RDW Std Deviation 48.0 H RDW Coeff of David 17.1 H Plt Count 193 MPV 10.0 Immature Gran % (Auto) 0.500 Neut % (Auto) 73.5 H Lymph % (Auto) 14.5 L [place] % (Auto) 8.5 Eos % (Auto) 2.6 Baso % (Auto) 0.4 Absolute Neuts (auto) 5.9 Absolute Lymphs (auto) 1.17 Nucleated RBC % 0 Sodium 137 Potassium 3.8 Chloride 106 Carbon Dioxide 25.0 Anion Gap 6 BUN 21 H Creatinine 1.00 Estim Creat Clear Calc 49.70 Est GFR (MDRD) Af Amer 71 Est GFR (MDRD) Non-Af 58 L BUN/Creatinine Ratio 21.0 H Glucose 128 H Calcium 8.3 L Troponin I High Sens 6 POC Glucose 128 H Blood Type O POSITIVE Antibody Screen NEGATIVE Crossmatch See Detail Radiography Chest X-Ray - ED: Read by ED Physician (Reviewed interpreted by me. Patient hasa right lower lobe infiltrate which is new from prior image obtained September. Cardiac silhouette and size normal. Hilar region normal. Osseous trucks unremarkable) Diagnostic Testing: Clinical Impression(s) from Imaging Studies Chest X-Ray 02/19/24 11:55 IMPRESSION: Right lower lobe infiltrate with small right pleural effusion with mild degree of vascular congestion in the right hemithorax. Electronically Signed: Jovon Freitas MD at 12:50 EDT , Management Discussion w/another healthcare provider: Hospitalist <Dr. Jeffy Willoughby MD - Last Filed: 02/19/24 14:39> Critical Care Time Critical Care Time: Yes Critical care time (excluding procedures): 30-74 minutes (31), Including time spent: (History, physical, documentation, review of prior records, independent interpretation laboratory results and imaging. Treatment for hypertension and pneumonia), Discussing w/Patient &/or Family/Document Imaging Manager, Discussing w/Consultants (Spoke with Dr. Chamorro who referred patient to Dr. Roman Mckeon. Patient was accepted.) and Arranging Admission or Transfer Discharge Plan Dx/Rx/DC Orders Clinical Impression: Acute hypotension, Essential (primary) hypertension, Atrial fibrillation, Community acquired pneumonia, Atypical chest pain, Signs and symptoms of anemia,Symptomatic anemia, Peripheral vascular occlusive disease Disposition Disposition: [facility] What to do if you have Problems For any increased pain, shortness of breath, bleeding, nausea or vomiting, chestpain, or any unexpected problems, contact your Primary Care Provider. Call [facility] ([phone]) or report to the closest Emergency Room. Call 911 if necessary. 02/19/24 1439 <Electronically signed by Jeffy Willoughby MD> Cosigner Signature (if applicable): 02/19/24 1346 <Electronically signed by Bernice Warren RN> CC: Dr. Daron Benton MD ~ Signed [facility] Work Phone: 1(983) 143-249204-02-2024 Discharge summary Author Jeffy Willoughby [facility] February 19, 2024 2:59pm Note Date/Time February 19, 2024 12:1 5pm [facility] Medical Records Department [address] [place] [address] Emergency Department Summary 02/19/24 MR#: [id number] Acct: [id number] Name: ANGÉLICA YO Rep #:[id number] : 1955 68 From: Jeffy Willoughby MD PCP: Dr. Daron Benton MD Status:[facility] ER Location: ED ADDENDUM by Dr. Jeffy Willoughby MD on 02/19/24 at 1459 EKG reveals atrial fibrillation with a ventricular rate 87. QRS duration 84 ms. QT duration 414 ms. [place] is normal. QT is prolonged. 02/19/24 1459<Electronically signed by Jeffy Willoughby MD> Cosigner Signature (if applicable): 02/19/24 1346 <Electronically signed by Bernice Warren RN> cc: Dr. Daron Benton MD ~* Signed HPI <Bernice Warren RN - Last Filed: 02/19/24 13:46> History of Present Illness Chief Complaint: Hypertension Informant: patient Onset/Context/Timing Onset: Today Context: Sudden Onset Timing: Continuous Current Severity: Moderate Maximum Severity: Moderate Worsened by: Nothing Relieved by: Nothing Associated Symptoms Associated Symptoms: Left arm pain and pain between scapula Narrative Narrative: Patient is a 68-year-old female with past medical history significant significant for atrial fibrillation on Eliquis, psoriatic arthritis, hyperlipidemia, bilateral carotid artery stenosis, and peripheral vascular occlusive disease who presented via EMS for dizziness and hypertension at home. Patient reports this morning dizzy, as if she needed to eat something. She ate some pizza and took her blood pressure which she reported was over 200. She took her lisinopril and then found a bottle of metoprolol in which she took 12-1/2 mg. She reports her normal blood pressure is around 90/60 and her normal heart rate is 60 to 90s. She reports when her blood pressure was elevated she did have left arm pain. She does have pain between her scapula. Describes it as sharp and constant. No exacerbating or alleviating factors. She says she has had similar pain and is unable to recall the diagnosis. She reports hemoptysis x 1 month. She denies any recent illness. She does report she fell on Easter in the driveway onto her buttocks. She did not hit her head. She denies any recent hospitalization or travel. Prior similar symptoms: Yes Recent Illness/Hospitalization: No PFSH <Bernice Warren RN - Last Filed: 02/19/24 13:46> PFSH Medical History Angina pectoris Bilateral carotid artery stenosis Chronic pain syndrome Coronary artery disease Essential (primary) hypertension Fatty liver GERD (gastroesophageal reflux disease) Goiter History of transient ischemic attack (TIA) HLD (hyperlipidemia) Hypothyroidism Influenza A Multiple sclerosis Multiple sclerosis Nonobstructive atherosclerosis of coronary artery Nonsustained paroxysmal supraventricular tachycardia Osteoarthritis Osteoporosis Peripheral vascular occlusive disease Psoriasis Psoriatic arthritis Smoker Thrombocytopenia TIA (transient ischemic attack) Home Medications cholecalciferol (vitamin D3) 125 mcg (5,000 unit) tablet 5,000 unit PO DAILY supplement 12/16/13 [History Last Taken 12/01/23] gabapentin 800 mg tablet 800 mg PO TID MS 07/16/18 [History Last Taken 12/01/23] baclofen 20 mg tablet 20 mg PO Q6H MS 08/11/21 [History Last Taken 12/01/23] levothyroxine 50 mcg tablet 50 mcg PO DAILY thyroid 08/11/21 [History Last Taken 12/01/23] oxycodone 10 mg tablet 10 mg PO Q6H PRN pain 05/24/23 [History Last Taken 12/01/23] famotidine 20 mg tablet 20 mg PO DAILY 12/21/23 [History Last Taken Unknown] apixaban 5 mg tablet (Eliquis) 5 mg PO BID #60 tabs 01/11/24 [Rx Last Taken Unknown] dextromethorphan-guaifenesin ER 60 mg-1,200 mg tab,extend release,12hr (Mucinex DM) 1 tab PO Q12H PRN cough/congest 02/19/24 [History Last Taken Unknown] lisinopril 10 mg tablet 10 mg PO DAILY 02/19/24 [History Last Taken Unknown] Allergy/AdvReac Type Severity Reaction Status Date / Time colestipol [From Colestid] Allergy Mild unknown Verified 02/19/24 10:57 pregabalin [From Lyrica] Allergy Mild Hives Verified 02/19/24 10:57 amitriptyline Allergy Rash Verified 02/19/24 10:57 temazepam [From Restoril] AdvReac Mild Nausea/Vom/ Verified 02/19/24 10:57 Diarrhea Antihistamines - Alkylamine AdvReac Nausea/Vom/ Verified 02/19/24 10:57 Diarrhea Antihistamines - Ethanolamine AdvReac Nausea/Vom/ Verified 02/19/24 10:57 Diarrhea Antihistamines - AdvReac Nausea/Vom/ Verified 02/19/24 10:57 Ethylenediamine Diarrhea Antihistamines - Piperazine AdvReac Nausea/Vom/ Verified 02/19/24 10:57 Diarrhea Antihistamines - Piperidine AdvReac Nausea/Vom/ Verified 02/19/24 10:57 Diarrhea aspirin AdvReac I'M ON Verified 02/19/24 10:57 BLOOD THINNERS codeine AdvReac Nausea Verified 02/19/24 10:57 Corticosteroids AdvReac Upset Verified 02/19/24 10:57 (Glucocorticoids) Stomach morphine AdvReac Nausea Verified 02/19/24 10:57 [id number] Reductase AdvReac Nausea Verified 02/19/24 10:57 Inhibitor [Paxckpj-Pcf-Sns Reductase Inhibitor] Family History Mother Cancer CAD (coronary artery disease) Brain tumor Grandfather CVA (cerebral vascular accident) Father CAD (coronary artery disease) Ruptured abdominal aortic aneurysm (AAA) Sister Brain aneurysm Surgical History Brain aneurysm Fracture of right lower leg H/O hemorrhoidectomy H/O: History of angioplasty of peripheral vessel History of angioplasty of peripheral vessel (07/11/19) History of appendectomy History of section History of cholecystectomy History of hemorrhoidectomy History of hysterectomy History of left breast biopsy History of left heart catheterization (01/25/15) History of left-sided carotid endarterectomy History of partial thyroidectomy (11/30/05) History of right-sided carotid endarterectomy S/P coil embolization of cerebral aneurysm S/P hysterectomy S/P insertion of iliac artery stent S/P thyroidectomy Stenosis of left subclavian artery Social History household members: none Smoking Status: Current every day smoker tobacco type: cigarettes alcohol intake: never caffeine: Yes Type: coffee and tea ROS <Bernice Warren RN - Last Filed: 02/19/24 13:46> ROS ED Constitutional Constitutional ED: Denies chills, fever(s) or sweats Eyes Eyes: Denies change in vision ENT ENT ED: Denies rhinorrhea or sore throat Cardiovascular Cardiovascular: Denies chest pain, orthopnea, palpitations or racing heartbeat Respiratory/Chest Respiratory/Chest: Reports cough, sputum and other Details: Hemoptysis x 1 month; Denies dyspnea or orthopnea Gastrointestinal Gastrointestinal: Denies abdominal pain, constipation, diarrhea, melena, nausea or vomiting Genitourinary Genitourinary ED: Denies dysuria, hematuria or urinary frequency Musculoskeletal Musculoskeletal: Reports other Details: Pain between scapula ; Denies arthralgias, myalgias or neck pain Integumentary Denies abscess, Abrasions or rash Neurologic Neurologic: Denies headache(s), paresthesias or weakness Psychiatric Psychiatric: Denies anxiety or depression Hematologic/Lymphatic Hematologic/Lymphatic: Reports systems reviewed and no addt'l complaints, exceptas documented and easy bruising EXAM <Bernice Warren RN - Last Filed: 02/19/24 13:46> Physical Exam Narrative Exam Narrative: Patient is pale, awake and alert. Cooperative. Good historian. Const Vital Signs: 02/19/24 10:52 02/19/24 10:52 02/19/24 10:58 Temperature 98.1 F 98.1 F Temperature Source Oral Oral Pulse Rate 95 96 Respiratory Rate 18 13 Respiratory Effort Normal Non-Labored Respiratory Pattern Normal Blood Pressure 80/51 L 95/52 L Blood Pressure Mean 60 66 Blood Pressure Source Blood Pressure Position Blood Pressure Location Pulse Ox 94 94 Oxygen Delivery Method Room Air Room Air 02/19/24 11:10 02/19/24 11:30 02/19/24 11:42 Temperature Temperature Source Pulse Rate 99 92 87 Respiratory Rate 14 12 14 Respiratory Effort Respiratory Pattern Blood Pressure 80/51 L 99/55 L 90/70 Blood Pressure Mean 60 69 76 Blood Pressure Source Blood Pressure Position Blood Pressure Location Pulse Ox 92 94 91 Oxygen Delivery Method Room Air Room Air Room Air 02/19/24 11:43 02/19/24 11:45 02/19/24 12:54 Temperature Temperature Source Pulse Rate 81 97 Respiratory Rate 12 Respiratory Effort Respiratory Pattern Blood Pressure 97/62 90/60 113/68 Blood Pressure Mean 73 70 83 Blood Pressure Source Blood Pressure Position Blood Pressure Location Pulse Ox 96 Oxygen Delivery Method Room Air 02/19/24 13:45 02/19/24 14:00 02/19/24 14:31 Temperature 98.2 F 98.2 F 98.1 F Temperature Source Oral Oral Pulse Rate 98 93 84 Respiratory Rate 20 H 18 22 H Respiratory Effort Respiratory Pattern Blood Pressure 113/93 H 116/80 119/65 Blood Pressure Mean 99 92 83 Blood Pressure Source Monitor Monitor Blood Pressure Position Semi-Fowlers Semi-Fowlers Blood Pressure Location Right Arm Right Arm Pulse Ox 93 93 94 Oxygen Delivery Method Room Air Room Air Positive well nourished and well developed General Appearance ED: well developed and NAD HEENT Reports moist mucous membranes HEENT Narrative: Patient with fall in October in which she still has a tender area on the right occiput with 0.5 cm round dark area. No abrasion, drainage, or bleeding noted. trauma and tenderness Eyes PERRL and EOMs intact bilaterally Neck no lymphadenopathy, supple and no JVD Chest Wall inspection of chest normal and palpation of chest normal Resp normal respiratory effort and clear to auscultation bilaterally Auscultation: Negative for rales, rhonchi or wheezes Cardio S1 normal heart sound, S2 normal heart sound and no murmurs Rhythm: abnormal rhythm irregularly irregular GI normal to inspection, nondistended, normoactive bowel sounds and non-tender Palpation: soft Narrative: Denies dysuria, hematuria, and urinary frequency Back/Spine no CVA tenderness Cervical Spine: Negative for cervical spine tenderness Thoracic Spine / Upper Back: Negative for thoracic spinal tenderness Lumbar Spine / Lower Back: Negative for lumbar spinal tenderness Extremity normal to inspection General Extremety ED: Negative for edema or tenderness General Extremity: Negative for edema Neuro oriented x3 Sensorium / Orientation: alert Motor Exam: general weakness Psych mental status grossly normal Skin no rashes or lesions noted, no wounds and skin turgor normal <Dr. Jeffy Willoughby MD - Last Filed: 02/19/24 14:39> Physical Exam Const Vital Signs: 02/19/24 10:52 02/19/24 10:52 02/19/24 10:58 Temperature 98.1 F 98.1 F Temperature Source Oral Oral Pulse Rate 95 96 Respiratory Rate 18 13 Respiratory Effort Normal Non-Labored Respiratory Pattern Normal Blood Pressure 80/51 L 95/52 L Blood Pressure Mean 60 66 Blood Pressure Source Blood Pressure Position Blood Pressure Location Pulse Ox 94 94 Oxygen Delivery Method Room Air Room Air 02/19/24 11:10 02/19/24 11:30 02/19/24 11:42 Temperature Temperature Source Pulse Rate 99 92 87 Respiratory Rate 14 12 14 Respiratory Effort Respiratory Pattern Blood Pressure 80/51 L 99/55 L 90/70 Blood Pressure Mean 60 69 76 Blood Pressure Source Blood Pressure Position Blood Pressure Location Pulse Ox 92 94 91 Oxygen Delivery Method Room Air Room Air Room Air 02/19/24 11:43 02/19/24 11:45 02/19/24 12:54 Temperature Temperature Source Pulse Rate 81 97 Respiratory Rate 12 Respiratory Effort Respiratory Pattern Blood Pressure 97/62 90/60 113/68 Blood Pressure Mean 73 70 83 Blood Pressure Source Blood Pressure Position Blood Pressure Location Pulse Ox 96 Oxygen Delivery Method Room Air 02/19/24 13:45 02/19/24 14:00 02/19/24 14:31 Temperature 98.2 F 98.2 F 98.1 F Temperature Source Oral Oral Pulse Rate 98 93 84 Respiratory Rate 20 H 18 22 H Respiratory Effort Respiratory Pattern Blood Pressure 113/93 H 116/80 119/65 Blood Pressure Mean 99 92 83 Blood Pressure Source Monitor Monitor Blood Pressure Position Semi-Fowlers Semi-Fowlers Blood Pressure Location Right Arm Right Arm Pulse Ox 93 93 94 Oxygen Delivery Method Room Air Room Air MDM <Bernice Warren RN - Last Filed: 02/19/24 13:46> [facility] MDM Narrative Medical decision making narrative: Patient placed on desk monitor. IV line initiated. Labwork obtained to evaluate for leukocytosis, anemia, and electrolyte derangement. Chest x-ray obtained to evaluate for acute lung pathology, cardiac size, or mediastinal abnormality. EKG obtained to evaluate for cardiac arrhythmia/ischemia. History & Record Review Discussion w/independent historian: Patient Lab Data Labs: Laboratory Results - last 24 hr 02/19/24 02/19/24 02/19/24 11:15 11:18 12:20 WBC 8.1 RBC 2.90 L Hgb 6.6 L Hct 22.4 L MCV 77.2 L MCH 22.8 L MCHC 29.5 L RDW Std Deviation 48.0 H RDW Coeff of David 17.1 H Plt Count 193 MPV 10.0 Immature Gran % (Auto) 0.500 Neut % (Auto) 73.5 H Lymph % (Auto) 14.5 L [place] % (Auto) 8.5 Eos % (Auto) 2.6 Baso % (Auto) 0.4 Absolute Neuts (auto) 5.9 Absolute Lymphs (auto) 1.17 Nucleated RBC % 0 Sodium 137 Potassium 3.8 Chloride 106 Carbon Dioxide 25.0 Anion Gap 6 BUN 21 H Creatinine 1.00 Estim Creat Clear Calc 49.70 Est GFR (MDRD) Af Amer 71 Est GFR (MDRD) Non-Af 58 L BUN/Creatinine Ratio 21.0 H Glucose 128 H Calcium 8.3 L Troponin I High Sens 6 POC Glucose 128 H Blood Type O POSITIVE Antibody Screen NEGATIVE Crossmatch See Detail Radiography Chest X-Ray - ED: 1 View Diagnostic Testing: Clinical Impression(s) from Imaging Studies Chest X-Ray 02/19/24 11:55 IMPRESSION: Right lower lobe infiltrate with small right pleural effusion with mild degree of vascular congestion in the right hemithorax. Electronically Signed: Jovon Freitas MD at 12:50 EDT , EKG Initial EKG: Attestation: I personally reviewed and interpreted this EKG as follows: Interpretation: Atrial Fibrillation Comments: A-fib with heart rate 87. No ischemia noted. Prior EKG tracings: not available for review Differential Diagnosis Chest pain/SOB: ACS and pneumonia Management Discussion w/another healthcare provider: Other (Dr. Onofre, ED provider.) Treatment and Re-Evaluation :: Blood pressure was obtained in both arms to rule out dissection. [id number] glucose was obtained to rule out hypoglycemia. It was 128. Lab work and imaging reviewed. CBC shows normal white blood cell count of 8.1 with neutrophils 73.5%. Hemoglobin was 6.6. This is decreased from 8.9 on 01/18/2024. Hematocrit is 22.4. Platelets are 193. Chemistry shows normal sodium 137, potassium 3.8, BUN slightly elevated at 21, creatinine is 1.0, glucose is 128, and calcium is 8.3. High-sensitivity troponin is negative at 6. Stool was sentfor occult blood. Patient does admit to hemoptysis x 1 month. Type and screen and type and cross ordered. Patient to be transfused 1 unit PRBCs. Chest x-rayshows a right lower lobe infiltrate with small right pleural effusion and mild vascular congestion. Patient ordered azithromycin and ceftriaxone. Case discussed with hospitalist by Dr. Willoughby for admission. Upon reevaluation, patient resting in bed awake and alert, receiving PRBCs. Patient aware of her decreased hemoglobin, stool positive for occult blood, and right lower lobe pneumonia. She is agreeable to admission. <Dr. Jeffy Willoughby MD - Last Filed: 02/19/24 14:39> MDM MDM Narrative Medical decision making narrative: Patient placed on desk monitor. IV line initiated. Labwork obtained to evaluate for leukocytosis, anemia, and electrolyte derangement. Chest x-ray obtained to evaluate for acute lung pathology, cardiac size, or mediastinal abnormality. EKG obtained to evaluate for cardiac arrhythmia/ischemia. I have personally performed a face to face assessment of the patient and have reviewed the JENNIFER Note. I performed a substantive portion of the visit including all aspects of the following. My white findings include: History is remarkable for dyspnea, fatigue, lack of energy. She denies black ormaroon-colored stool. She denies hematuria. She has vague chest discomfort as well. She denies orthopnea or PND. Exam is remarkable for pallor. Conjunctive is pale. There is erythema increasing the plan. Lungs reveal no wheeze rales rhonchi. Heart is regular. Rate is normal. There is no murmur, gallop or rub. Abdomen soft nontender. Patient has evidence of prior hemorrhoids. There is no active bleeding noted. On rectal exam there is no masses appreciated. Stool was brown. Stool sent foroccult blood. Medical Decision Making since clinically patient appears anemic obtain CBC to assess H&H and BMP to assess BUN to creatinine ratio is also electrolyte functions. Since patient has symptoms of anemia and is anemic she was typed andscreened and typed and crossed for 1 unit of blood. She received that 1 unit ofblood. Stool was positive for occult blood. Other additions or changes: Transfuse unit of blood. Contact hospitalist for admission Lab Data Attestation: I reviewed the patient's lab results. Lab results narrative: CBC is marked for an H&H 6.6 and 2.4 which is approximately 2 g drop from prior. Basic metabolic panel is remarked for noted BUN to creatinine ratio 21:1. Labs: Laboratory Results - last 24 hr 02/19/24 02/19/24 02/19/24 11:15 11:18 12:20 WBC 8.1 RBC 2.90 L Hgb 6.6 L Hct 22.4 L MCV 77.2 L MCH 22.8 L MCHC 29.5 L RDW Std Deviation 48.0 H RDW Coeff of David 17.1 H Plt Count 193 MPV 10.0 Immature Gran % (Auto) 0.500 Neut % (Auto) 73.5 H Lymph % (Auto) 14.5 L [place] % (Auto) 8.5 Eos % (Auto) 2.6 Baso % (Auto) 0.4 Absolute Neuts (auto) 5.9 Absolute Lymphs (auto) 1.17 Nucleated RBC % 0 Sodium 137 Potassium 3.8 Chloride 106 Carbon Dioxide 25.0 Anion Gap 6 BUN 21 H Creatinine 1.00 Estim Creat Clear Calc 49.70 Est GFR (MDRD) Af Amer 71 Est GFR (MDRD) Non-Af 58 L BUN/Creatinine Ratio 21.0 H Glucose 128 H Calcium 8.3 L Troponin I High Sens 6 POC Glucose 128 H Blood Type O POSITIVE Antibody Screen NEGATIVE Crossmatch See Detail Radiography Chest X-Ray - ED: Read by ED Physician (Reviewed interpreted by me. Patient hasa right lower lobe infiltrate which is new from prior image obtained September year. Cardiac silhouette and size normal. Hilar region normal. Osseous trucks unremarkable) Diagnostic Testing: Clinical Impression(s) from Imaging Studies Chest X-Ray 02/19/24 11:55 IMPRESSION: Right lower lobe infiltrate with small right pleural effusion with mild degree of vascular congestion in the right hemithorax. Electronically Signed: Jovon Freitas MD at 12:50 EDT , Management Discussion w/another healthcare provider: Hospitalist <Dr. Jeffy Willoughby MD - Last Filed: 02/19/24 14:39> Critical Care Time Critical Care Time: Yes Critical care time (excluding procedures): 30-74 minutes (31), Including time spent: (History, physical, documentation, review of prior records, independent interpretation laboratory results and imaging. Treatment for hypertension and pneumonia), Discussing w/Patient &/or Family/Document Imaging Manager, Discussing w/Consultants (Spoke with Dr. Chamorro who referred patient to Dr. Roman Mckeon. Patient was accepted.) and Arranging Admission or Transfer Discharge Plan Dx/Rx/DC Orders Clinical Impression: Acute hypotension, Essential (primary) hypertension, Atrial fibrillation, Community acquired pneumonia, Atypical chest pain, Signs and symptoms of anemia,Symptomatic anemia, Peripheral vascular occlusive disease Disposition Disposition: Acute Care Hospital [facility] What to do if you have Problems For any increased pain, shortness of breath, bleeding, nausea or vomiting, chestpain, or any unexpected problems, contact your Primary Care Provider. Call [facility] ([phone]) or report to the closest Emergency Room. Call 911 if necessary. 02/19/24 1439 <Electronically signed by Jeffy Willoughby MD> Cosigner Signature (if applicable): 02/19/24 1346 <Electronically signed by Bernice Warren RN> CC: Dr. Daron Benton MD ~ Signed [facility] Work Phone: 1(385) 697-215004-02-2024 History and physical note Author Roman Mckeon [facility] February 19, 2024 3:25pm Note Date/Time February 19, 2024 2:26 pm [facility] Medical Records Department [address] [place] [address] H&P Exam - Hospitalist 02/19/24 1426 MR#: [id number] Acct: [id number] Name: ANGÉLICA YO Rep #:[id number] : 1955 68 From: Roman Mckeon MD PCP: Dr. Daron Benton MD Status:REG ER Location: ED HPI - General General Date of Admission: 02/19/24 Date of Service: 02/19/24 Chief Complaint: Lightheadedness HPI Narrative ANGÉLICA YO, is a 68 F with multiple comorbidities including paroxysmal A-fib on systemic anticoagulation with apixaban who presented to the emergency department with lightheadedness. Per patient she has not been feeling well for the past couple of days. On the day of her admission she did experience lightheadedness. She apparently also broke out into a cold sweat and felt her blood pressure was elevated presented to the emergency department as a result. Patient was found to have a hemoglobin of 6.6. Chest x-ray obtained as part of her evaluation demonstrated right lower lobe infiltrate. Patient was also foundto have mild degree of vascular congestion. Admitted to monitored bed for further management [facility] Medical History Angina pectoris Bilateral carotid artery stenosis Chronic pain syndrome Coronary artery disease Essential (primary) hypertension Fatty liver GERD (gastroesophageal reflux disease) Goiter History of transient ischemic attack (TIA) HLD (hyperlipidemia) Hypothyroidism Influenza A Multiple sclerosis Multiple sclerosis Nonobstructive atherosclerosis of coronary artery Nonsustained paroxysmal supraventricular tachycardia Osteoarthritis Osteoporosis Peripheral vascular occlusive disease Psoriasis Psoriatic arthritis Smoker Thrombocytopenia TIA (transient ischemic attack) Home Medications cholecalciferol (vitamin D3) 125 mcg (5,000 unit) tablet 5,000 unit PO DAILY supplement 12/16/13 [History Last Taken 12/01/23] gabapentin 800 mg tablet 800 mg PO TID MS 07/16/18 [History Last Taken 12/01/23] baclofen 20 mg tablet 20 mg PO Q6H MS 08/11/21 [History Last Taken 12/01/23] levothyroxine 50 mcg tablet 50 mcg PO DAILY thyroid 08/11/21 [History Last Taken 12/01/23] oxycodone 10 mg tablet 10 mg PO Q6H PRN pain 05/24/23 [History Last Taken 12/01/23] famotidine 20 mg tablet 20 mg PO DAILY 12/21/23 [History Last Taken Unknown] apixaban 5 mg tablet (Eliquis) 5 mg PO BID #60 tabs 01/11/24 [Rx Last Taken Unknown] dextromethorphan-guaifenesin ER 60 mg-1,200 mg tab,extend release,12hr (Mucinex DM) 1 tab PO Q12H PRN cough/congest 02/19/24 [History Last Taken Unknown] lisinopril 10 mg tablet 10 mg PO DAILY 02/19/24 [History Last Taken Unknown] Allergy/AdvReac Type Severity Reaction Status Date / Time colestipol [From Colestid] Allergy Mild unknown Verified 02/19/24 10:57 pregabalin [From Lyrica] Allergy Mild Hives Verified 02/19/24 10:57 amitriptyline Allergy Rash Verified 02/19/24 10:57 temazepam [From Restoril] AdvReac Mild Nausea/Vom/ Verified 02/19/24 10:57 Diarrhea Antihistamines - Alkylamine AdvReac Nausea/Vom/ Verified 02/19/24 10:57 Diarrhea Antihistamines - Ethanolamine AdvReac Nausea/Vom/ Verified 02/19/24 10:57 Diarrhea Antihistamines - AdvReac Nausea/Vom/ Verified 02/19/24 10:57 Ethylenediamine Diarrhea Antihistamines - Piperazine AdvReac Nausea/Vom/ Verified 02/19/24 10:57 Diarrhea Antihistamines - Piperidine AdvReac Nausea/Vom/ Verified 02/19/24 10:57 Diarrhea aspirin AdvReac I'M ON Verified 02/19/24 10:57 BLOOD THINNERS codeine AdvReac Nausea Verified 02/19/24 10:57 Corticosteroids AdvReac Upset Verified 02/19/24 10:57 (Glucocorticoids) Stomach morphine AdvReac Nausea Verified 02/19/24 10:57 [id number]-[id number]-EsU Reductase AdvReac Nausea Verified 02/19/24 10:57 Inhibitor [Ixooumz-Pzv-Ngt Reductase Inhibitor] Family History Mother Cancer CAD (coronary artery disease) Brain tumor Grandfather CVA (cerebral vascular accident) Father CAD (coronary artery disease) Ruptured abdominal aortic aneurysm (AAA) Sister Brain aneurysm Surgical History Brain aneurysm Fracture of right lower leg H/O hemorrhoidectomy H/O: History of angioplasty of peripheral vessel History of angioplasty of peripheral vessel (07/11/19) History of appendectomy History of section History of cholecystectomy History of hemorrhoidectomy History of hysterectomy History of left breast biopsy History of left heart catheterization (01/25/15) History of left-sided carotid endarterectomy History of partial thyroidectomy (11/30/05) History of right-sided carotid endarterectomy S/P coil embolization of cerebral aneurysm S/P hysterectomy S/P insertion of iliac artery stent S/P thyroidectomy Stenosis of left subclavian artery Social History household members: none Smoking Status: Current every day smoker tobacco type: cigarettes alcohol intake: never caffeine: Yes Type: coffee and tea ROS ROS Narrative GENERAL: denies fever, chills, night sweats, weight loss, anorexia HEENT: denies headache, sinus congestion, or drainage, dysphagia RESPIRATORY: dyspnea on exertion CARDIAC: denies chest pain, palpitations, orthopnea, PND GASTROINTESTINAL: denies abdominal pain, nausea, vomiting, melena, GENITOURINARY: denies dysuria, urgency, frequency, heamaturia EXTREMITY: denies swelling MUSCULOSKELETAL: denies current joint pain or tenderness NEUROLOGIC: denies focal numbness, weakness, tingling HEMATOLOGIC: denies easy bruising and/or hemorrhage INTEGUMENT: denies rashes PSYCHIATRIC: denies suicidal or homicidal ideation Vital Signs Vital Signs Vital Signs: 02/19/24 10:52 02/19/24 10:52 02/19/24 10:58 Temperature 98.1 F 98.1 F Temperature Source Oral Oral Pulse Rate 95 96 Respiratory Rate 18 13 Respiratory Effort Normal Non-Labored Respiratory Pattern Normal Blood Pressure 80/51 L 95/52 L Blood Pressure Mean 60 66 Blood Pressure Source Blood Pressure Position Blood Pressure Location Pulse Ox 94 94 Oxygen Delivery Method Room Air Room Air 02/19/24 11:10 02/19/24 11:30 02/19/24 11:42 Temperature Temperature Source Pulse Rate 99 92 87 Respiratory Rate 14 12 14 Respiratory Effort Respiratory Pattern Blood Pressure 80/51 L 99/55 L 90/70 Blood Pressure Mean 60 69 76 Blood Pressure Source Blood Pressure Position Blood Pressure Location Pulse Ox 92 94 91 Oxygen Delivery Method Room Air Room Air Room Air 02/19/24 11:43 02/19/24 11:45 02/19/24 12:54 Temperature Temperature Source Pulse Rate 81 97 Respiratory Rate 12 Respiratory Effort Respiratory Pattern Blood Pressure 97/62 90/60 113/68 Blood Pressure Mean 73 70 83 Blood Pressure Source Blood Pressure Position Blood Pressure Location Pulse Ox 96 Oxygen Delivery Method Room Air 02/19/24 13:45 Temperature 98.2 F Temperature Source Oral Pulse Rate 98 Respiratory Rate 20 H Respiratory Effort Respiratory Pattern Blood Pressure 113/93 H Blood Pressure Mean 99 Blood Pressure Source Monitor Blood Pressure Position Semi-Fowlers Blood Pressure Location Right Arm Pulse Ox 93 Oxygen Delivery Method Room Air Weight Weight: 61.4 kg Body Mass Index (BMI) 21.8 Physical Exam Narrative GENERAL: cooperative HEENT: Atraumatic; normocephalic EYES; Anicteric, pallor of the conjunctiva NECK; supple, normal thyroid, RESPIRATORY: Diminished to auscultation CARDIOVASCULAR: Regular S1 S2, GI: soft, normoactive bowel sounds, : No Renal angle tenderness; EXTREMITIES: No edema, no clubbing, MUSCULOSKELETAL: no muscle wasting NEURO: Awake; no lateralizing signs. SKIN: No Rash PSYCH; Flat affect Results Lab / Micro Data 02/19/24 11:15 02/19/24 11:15 Labs: Laboratory Results - last 24 hr 02/19/24 11:15: WBC 8.1, RBC 2.90 L, Hgb 6.6 L, Hct 22.4 L, MCV 77.2 L, MCH 22.8L, MCHC 29.5 L, RDW Std Deviation 48.0 H, RDW Coeff of David 17.1 H, Plt Count 193, MPV 10.0, Immature Gran % (Auto) 0.500, Neut % (Auto) 73.5 H, Lymph % (Auto) 14.5 L, [place] % (Auto) 8.5, Eos % (Auto) 2.6, Baso % (Auto) 0.4, Absolute Neuts (auto) 5.9, Absolute Lymphs (auto) 1.17, Nucleated RBC % 0, Sodium 137, Potassium 3.8, Chloride 106, Carbon Dioxide 25.0, Anion Gap 6, BUN 21 H, Creatinine 1.00, Estim Creat Clear Calc 49.70, Est GFR (MDRD) Af Amer 71, Est GFR(MDRD) Non-Af 58 L, BUN/Creatinine Ratio 21.0 H, Glucose 128 H, Calcium 8.3 L, Troponin I High Sens 6 02/19/24 11:18: POC Glucose 128 H 02/19/24 12:20: Blood Type O POSITIVE, Antibody Screen NEGATIVE, Crossmatch See Detail Micro: Microbiology 02/19/24 12:18 Stool Stool Occult Blood (CARMEN) - Final Occult Blood Positive Imaging Radiology Impression Chest X-Ray 02/19/24 11:55 IMPRESSION: Right lower lobe infiltrate with small right pleural effusion with mild degree of vascular congestion in the right hemithorax. Electronically Signed: Jovon Freitas MD at 12:50 EDT , Assessment & Plan Assessment/Plan (1) Symptomatic anemia: PLAN: Plan Patient is a 68-year-old lady presented with fatigue found to be anemic with hemoglobin of 6.6. Chest x-ray demonstrated right lower lobe infiltrate as wellas mild vascular congestion 1. Symptomatic anemia ? Suspected to be secondary to chronic GI bleed. Patient is on apixaban for systemic anticoagulation for A-fib. Patient was guaiac positive. An order was given for patient to be transfused with 1 unit PRBC. Iron studies undertaken prior to patient being transfused 2. Suspected GI bleed ? Patient is on apixaban held consult placed to Dr. Gonzalez with GI for possible endoscopic evaluation 3. Pneumonia - Suspected to be secondary to streptococcal pneumonia, Blood and sputum cultures sent. Patient placed on Rocephin and Zithromax and placed on oxygen titrated to keep Pulse Ox greater than 90 4. Paroxysmal A-fib ? Rate controlled on systemic anticoagulation with apixaban held given patient anemia 5. Suspected congestive heart failure?1 with preserved ejection fraction ? Possibly precipitated by patient being anemic patient was placed on diuretic therapy 2D echo ordered 6. Hypertension - Blood pressure controlled, home medications continued with dose adjustment as needed 7. Multiple sclerosis ? Per history patient is on baclofen for muscle relaxation 8. Hypothyroidism ? Patient is on levothyroxine did continue with home dose 9. Peripheral arterial disease ? With history of bilateral carotid artery stenosis, peripheral vascular occlusive disease. Patient was on systemic anticoagulation with apixaban held given about reasons 10. DVT prophylaxis ? Patient is on apixaban held Time spent in the patient's overall evaluation,decision-making process, review of diagnostic data, adjustment of management, discussion with other providers, nursing nursing and ancillary staff involved in patient's care documentation, 75 Minutes Advance planning; did discuss with the patient and family regarding advanced directives as well as CODE STATUS. Did explain the various scenarios involved (FULL CODE, DNR CCA, DNR CCA with no intubation, and DNR CC and what each meant) patient elected remain full code with CPR and intubation if needed. Order was placed. Time spent on discussion 18 minutes. Charges/Coding Visit Charges Inpatient E&M: 10314 Init Hosp L3 Procedures Hospitalists Procedures: 91340 Advncd Care Plan 30 Min 02/19/24 6815 <Electronically signed by Roman Mckeon MD> Cosigner Signature (if applicable): CC: Dr. Roman Mckeon MD; Dr. Daron Benton MD~ Signed [facility] Work Phone: [phone]) 851-534303-25-2024 Telephone encounter Note* Telephone Encounter - Nicole Albright Cipriano - 02/11/2024 10:34 AM EDT Medication name: baclofen (Lioresal) 20 MG tablet Medication dosage: 20 mg (Miligrams Monthly quantity needed: 90 How many day supply requesting: n/a Medication route: oral (PO) Medication administration time(s): Take 1 tablet (20 mg) by mouth every 8 hours as needed for muscle spasms. If taking medication PRN, reason for taking medication: N/A If this is a controlled substance do you receive this or any other controlled medication from any other doctor or facility: N/A Ordering provider: Dr. Main Date of last office visit: 12/14/23 Date of next office visit: n/a Date of last refill: (see medication tab): 06/15/23 Updated/Validated preferred pharmacy: N/A Patient instructed to contact the pharmacy prior to picking up the medication[id number] Misc[facility] Notes* Telephone Encounter - Nicole Cota - 02/11/2024 10:34 AM EDT Medication name: baclofen (Lioresal) 20 MG tablet Medication dosage: 20 mg (Miligrams Monthly quantity needed: 90 How many day supply requesting: n/a Medication route: oral (PO) Medication administration time(s): Take 1 tablet (20 mg) by mouth every 8 hours as needed for muscle spasms. If taking medication PRN, reason for taking medication: N/A If this is a controlled substance do you receive this or any other controlled medication from any other doctor or facility: N/A Ordering provider: Dr. Main Date of last office visit: 12/14/23 Date of next office visit: n/a Date of last refill: (see medication tab): 06/15/23 Updated/Validated preferred pharmacy: N/A Patient instructed to contact the pharmacy prior to picking up the medication: N/A documented in this [facility]02-23-2024 Discharge summary Author Jori Garcia [facility] January 11, 2024 8:14am Note Date/Time January 11, 2024 2:45am [facility] Medical Records Department [address] [place] [address] Emergency Department Summary 01/11/24 MR#: [id number] Acct: [id number] Name: ANGÉLICA YO Rep #:[id number] : 1955 68 From: Jori Garcia MD PCP: Dr. Daron Benton MD Status:REG ER Location: ED HPI HPI - Fall History of Present Illness Chief Complaint: Fall Informant: patient Narrative Narrative: Patient presents by EMS after having 2 falls. She states she got up to use the bathroom in the middle of the night, upon getting out of bed she felt fine but upon entering her bathroom she felt very dizzy, causing her to fall against the wall bumping her head. She then crawled through the bathroom, continuing to feel dizzy, and when she tried to go to the bathroom and transition to sitting on the toilet, she fell again hitting the back of her head on the floor or the toilet. No loss of consciousness either time. She does not have an internal headache but has pain in the back of her head and her neck and points to her right buttock where she is having pain. No other symptoms. 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 Although initially she stated that she felt like she might pass out tonight, she later changes her historical details with regards to her dizziness saying that it felt similar to prior dizzinessepisodes that she associates with her ears but cannot describe those exact symptoms. She denies any recent illness. She is on clopidogrel. She does not know of any prior heart problems although they are listed in the EMR, stating the clopidogrel is because of PAD and associated stenting, 1 of which is in her abdomen and the other is in the leg. She also states she has osteoporosis. Sheis on no anticoagulants. [facility] Medical History Angina pectoris Bilateral carotid artery stenosis Chronic pain syndrome Coronary artery disease Essential (primary) hypertension Fatty liver GERD (gastroesophageal reflux disease) Goiter History of transient ischemic attack (TIA) HLD (hyperlipidemia) Hypothyroidism Influenza A Multiple sclerosis Multiple sclerosis Nonobstructive atherosclerosis of coronary artery Nonsustained paroxysmal supraventricular tachycardia Osteoarthritis Osteoporosis Peripheral vascular occlusive disease Psoriasis Psoriatic arthritis Smoker Thrombocytopenia TIA (transient ischemic attack) Home Medications cholecalciferol (vitamin D3) 125 mcg (5,000 unit) tablet 5,000 unit PO DAILY supplement 12/16/13 [History Last Taken 12/01/23] gabapentin 800 mg tablet 800 mg PO TID MS 07/16/18 [History Last Taken 12/01/23] baclofen 20 mg tablet 20 mg PO Q8H MS 08/11/21 [History Last Taken 12/01/23] levothyroxine 50 mcg tablet 50 mcg PO DAILY thyroid 08/11/21 [History Last Taken 12/01/23] oxycodone 10 mg tablet 10 mg PO Q6H PRN pain 05/24/23 [History Last Taken 12/01/23] clopidogrel 75 mg tablet 75 mg PO DAILY dose increased, pt is OUT of med, pleasefill #90 TABLETS 06/01/23 [Rx Last Taken 11/18/23] dextromethorphan-guaifenesin ER 60 mg-1,200 mg tab,extend release,12hr (Mucinex DM) 1 tab PO Q12H cough/congest 7 days #14 tabs 11/16/23 [Rx Last Taken 12/01/23] metoprolol tartrate 25 mg tablet 12.5 mg (1/2 x 25 mg) PO BID #30 tabs 12/10/23 [Rx Last Taken Unknown] famotidine 20 mg tablet 20 mg PO DAILY 12/21/23 [History Last Taken Unknown] Allergy/AdvReac Type Severity Reaction Status Date / Time colestipol [From Colestid] Allergy Mild unknown Verified 01/11/24 02:15 pregabalin [From Lyrica] Allergy Mild Hives Verified 01/11/24 02:15 amitriptyline Allergy Rash Verified 01/11/24 02:15 temazepam [From Restoril] AdvReac Mild Nausea/Vom/ Verified 01/11/24 02:15 Diarrhea Antihistamines - Alkylamine AdvReac Nausea/Vom/ Verified 01/11/24 02:15 Diarrhea Antihistamines - Ethanolamine AdvReac Nausea/Vom/ Verified 01/11/24 02:15 Diarrhea Antihistamines - AdvReac Nausea/Vom/ Verified 01/11/24 02:15 Ethylenediamine Diarrhea Antihistamines - Piperazine AdvReac Nausea/Vom/ Verified 01/11/24 02:15 Diarrhea Antihistamines - Piperidine AdvReac Nausea/Vom/ Verified 01/11/24 02:15 Diarrhea aspirin AdvReac I'M ON Verified 01/11/24 02:15 BLOOD THINNERS codeine AdvReac Nausea Verified 01/11/24 02:15 Corticosteroids AdvReac Upset Verified 01/11/24 02:15 (Glucocorticoids) Stomach morphine AdvReac Nausea Verified 01/11/24 02:15 Timujqt-EON-OxE Reductase AdvReac Nausea Verified 01/11/24 02:15 Inhibitor [Fxesnmi-Vzj-Ebv Reductase Inhibitor] Family History Mother Cancer CAD (coronary artery disease) Brain tumor Grandfather CVA (cerebral vascular accident) Father CAD (coronary artery disease) Ruptured abdominal aortic aneurysm (AAA) Sister Brain aneurysm Surgical History Brain aneurysm Fracture of right lower leg H/O hemorrhoidectomy H/O: History of angioplasty of peripheral vessel History of angioplasty of peripheral vessel (07/11/19) History of appendectomy History of section History of cholecystectomy History of hemorrhoidectomy History of hysterectomy History of left breast biopsy History of left heart catheterization (01/25/15) History of left-sided carotid endarterectomy History of partial thyroidectomy (11/30/05) History of right-sided carotid endarterectomy S/P coil embolization of cerebral aneurysm S/P hysterectomy S/P insertion of iliac artery stent S/P thyroidectomy Stenosis of left subclavian artery Social History household members: none Smoking Status: Current every day smoker tobacco type: cigarettes alcohol intake: never caffeine: Yes Type: coffee and tea ROS ROS ED Constitutional Constitutional ED: Denies chills or fever(s) Eyes Eyes: Denies change in vision or diplopia ENT ENT ED: Reports as per HPI, disequillibrium, dizziness and other Details: Statesshe felt like she was off balance ; Denies ear pain, epistaxis, facial pain or rhinorrhea Cardiovascular Cardiovascular: Denies chest pain or palpitations Respiratory/Chest Respiratory/Chest: Denies cough or dyspnea Gastrointestinal Gastrointestinal: Denies abdominal pain, diarrhea, melena, nausea or vomiting Genitourinary Genitourinary ED: Denies dysuria or hematuria Musculoskeletal Musculoskeletal: Reports neck pain and other Details: Pain right buttock/hip area ; Denies back pain or extremity pain Integumentary Denies abscess, Abrasions, laceration or rash Neurologic Neurologic: Denies confusion, headache(s), paresthesias or weakness EXAM Physical Exam Const Vital Signs: 01/11/24 02:14 01/11/24 02:14 01/11/24 02:21 Temperature 97.6 F L Temperature Source Temporal Pulse Rate 147 H Respiratory Rate 19 H Respiratory Effort Normal Non-Labored Respiratory Depth Normal Respiratory Pattern Normal Blood Pressure 158/115 H Blood Pressure Mean 129 Pulse Ox 86 85 Oxygen Delivery Method Room Air Room Air Room Air Oxygen Flow Rate (L/min) 86 01/11/24 02:23 01/11/24 02:28 01/11/24 02:32 Temperature Temperature Source Pulse Rate 134 H 169 H Respiratory Rate 20 H 20 H Respiratory Effort Respiratory Depth Respiratory Pattern Blood Pressure Blood Pressure Mean Pulse Ox 93 93 92 Oxygen Delivery Method Nasal Cannula Nasal Cannula Nasal Cannula Oxygen Flow Rate (L/min) 3 2 2 01/11/24 02:31 01/11/24 02:55 01/11/24 03:31 Temperature Temperature Source Pulse Rate 146 H 112 H Respiratory Rate 19 H 19 H Respiratory Effort Respiratory Depth Respiratory Pattern Blood Pressure 150/95 H 163/99 H 136/101 H Blood Pressure Mean 113 120 112 Pulse Ox 92 93 Oxygen Delivery Method Nasal Cannula Nasal Cannula Oxygen Flow Rate (L/min) 2 2 01/11/24 04:00 01/11/24 05:00 01/11/24 05:19 Temperature Temperature Source Pulse Rate 115 H 110 H 114 H Respiratory Rate 20 H 20 H 20 H Respiratory Effort Respiratory Depth Respiratory Pattern Blood Pressure 133/70 H 117/95 H 132/60 H Blood Pressure Mean 91 102 84 Pulse Ox 93 99 98 Oxygen Delivery Method Nasal Cannula Nasal Cannula Nasal Cannula Oxygen Flow Rate (L/min) 4 4 2 01/11/24 06:25 01/11/24 06:36 01/11/24 06:50 Temperature Temperature Source Pulse Rate 129 H 108 H 67 Respiratory Rate 21 H 20 H 19 H Respiratory Effort Respiratory Depth Respiratory Pattern Blood Pressure 119/70 103/80 93/60 Blood Pressure Mean 86 87 71 Pulse Ox 86 98 98 Oxygen Delivery Method Room Air Nasal Cannula Nasal Cannula Oxygen Flow Rate (L/min) 2 2 01/11/24 06:51 Temperature Temperature Source Pulse Rate 66 Respiratory Rate 18 Respiratory Effort Respiratory Depth Respiratory Pattern Blood Pressure 114/58 L Blood Pressure Mean 76 Pulse Ox 98 Oxygen Delivery Method Nasal Cannula Oxygen Flow Rate (L/min) 2 Positive well nourished and well developed General Appearance ED: well developed and NAD HEENT Reports TM's clear and nasal mucous membranes and turbinates normal HEENT Narrative: Tender hematoma right occiput with superficial abrasion (after cleansing and further exam, NO laceration) Face and Sinus: Negative for facial tenderness Tympanic Membrane ED: Yes TM's clear Eyes PERRL and EOMs intact bilaterally Visual Acuity: other Other Details: no entrapment or pain with extraocular movements Neck full ROM and supple Neck Narrative: Mild diffuse tenderness General: tenderness Chest Wall inspection of chest normal and palpation of chest normal Chest: symmetrical chest wall rise; Negative for crepitus or tenderness Resp normal respiratory effort and clear to auscultation bilaterally Percussion: other equal BS bilat Cardio Rate: tachycardic Rhythm: abnormal rhythm other (Tachycardic and regular, but at times is tachycardic and irregularly irregular) GI normal to inspection, nondistended, normoactive bowel sounds, soft to palpation and non-tender Back/Spine normal ROM Cervical Spine: Negative for cervical spine tenderness Thoracic Spine / Upper Back: Negative for thoracic spinal tenderness Lumbar Spine / Lower Back: Negative for lumbar spinal tenderness Extremity normal to inspection and full ROM Extremity Narrative: No tenderness at the right greater trochanter or the ASIS but mildly tender at the right ischial tuberosity. No other tenderness throughout the arms, legs, back, hips, pelvis. General Extremety ED: Negative for tenderness Neuro oriented x3, CN's II-XII intact bilaterally, moves all extremities, no focal motor deficits and no sensory deficits noted [place] Coma Scale: document GCS findings Spontaneous Obeys Commands Oriented 15 Sensorium / Orientation: awake and alert Psych mental status grossly normal and thought process normal Skin Lesions: no lesions Rashes: no rashes MDM MDM MDM Narrative Medical decision making narrative: Patient has tachycardia, the EKG does show that the QRS complex is slightly widened this is new compared with her prior, however, she is clinically and hemodynamically stable and has periods of time that were not captured on the EKGwhich she appears to be in a sinus rhythm and the rate goes down as low as 70. However tends to pick back up and become fast in the 160-170 range again. She has a history of paroxysmal atrial fibrillation as well as paroxysmal supraventricular tachycardia, both of which are in the differential diagnosis asis sinus tachycardia, MAT, ectopic atrial tachycardia, as well as ventricular dysrhythmias although the latter thought to be less likely given the P waves that I see occasionally on the monitor. Given all of this we initially attempted adenosine 6 mg in order to evaluate for A-fib/atrial flutter. Patienttolerated this well, she had sinus beats and no sign of atrial fibrillation or flutter. She recovered without difficulty and her tachycardia resumed. I asked the patient about her medications including the metoprolol 12.5 mg twice daily that is listed, initially she told the nurse that she has been taking it, then she changed her mind and said that she has not taken it tonight. It is between 2-3 AM. In reviewing the telemetry at this time, the complexes do not look wide, most of them look narrow now, and her heart rate is in the 160 range. Therefore we gave her metoprolol 5 mg IV. This slowed her down to the 120 range,appearing irregular, narrow-complex, more like afib; BP remained stable. For this reason and her lack of chest symptoms, although it was considered, it was felt that electrocardioversion was not necessary. I repeated EKG. It confirms,on my interpretation, a narrow complex mild tachycardia that is consistent with atrial fibrillation. Given her poor history / answering questions, and her leukocytosis, infections were considered in the workup, in addition to checking for injuries. CT of the head and cervical spine were obtained, I reviewed the images and the report which I agree with, negative for acute fracture / intracranial injury. 1 view pelvis x-ray my interpretation negative for fracture, and 2 view chest x-ray on my interpretation negative for pneumonia. She is complaining mostly about pain at the site of the hematoma on her scalp, she was given Tylenol and an ice pack for this. She denied having any further episodes or symptoms of dizziness. Patient finally able to provide urine, and it does not appear to show signs of infection. Her lactate is normal, consistent with absence of infection. On reevaluation her heart rate is still alittle elevated 110-120, and it is close to time for her morning dose of metoprolol. I gave her a dose of metoprolol 5 mg IV while we wait for pharmacy to send up her usual oral dose, the parenteral dose dropped her pressure although it did help her rate, so we held off on the oral dose. Some IV fluids helped her pressure. While we were waiting for her to, more, she became somewhat hypoxic and with ambulation although she did okay she felt short of breath and this is the first time she told us that. I sent her for CTA of the chest, and on the way there, she converted to sinus rhythm on the monitor. Her blood pressure on recheck after returning from CT is 114 systolic. Repeated herEKG for third study, it now appears completely normal and similar to her old one. 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 This may explain some of her low pulse ox and blood pressure readings. They are now being taken both on the right side. Her pulse ox is 96-97% on room air, and her blood pressure is 93/60 and she is easily arousable. She is able to ambulate. She is still complaining about the pain in her right buttock/hip and the hematoma on the posterior scalp,but she is able to walk and was given Tylenol and ice for these. She is comfortable going home. I recommend following up with Dr. Barnett as an outpatient. I reviewed outpatient records which showed she had angioplasty of the left subclavian artery stenosis in 2019. She needs to follow-up regarding this again. She is not having ischemic pain in her left arm, and she has a bounding left radial pulse at this time. History & Record Review Additional record(s) reviewed:: Prior outpatient record (prior Afib thought to have caused CVA/TIA, [id number] score of 4, prescribed Eliquis but patient self-discontinued it. Vascular: see above.) Lab Data Attestation: I reviewed the patient's lab results. Labs: Laboratory Results - last 24 hr 01/11/24 01/11/24 01/11/24 02:28 03:44 03:45 WBC 14.6 H RBC 3.75 L Hgb 10.2 L Hct 32.4 L MCV 86.4 MCH 27.2 MCHC 31.5 L RDW Std Deviation 48.4 H RDW Coeff of David 15.2 H Plt Count 308 MPV 9.2 Immature Gran % (Auto) 1.300 H Neut % (Auto) 85.1 H Lymph % (Auto) 5.2 L [place] % (Auto) 7.7 Eos % (Auto) 0.2 Baso % (Auto) 0.5 Absolute Neuts (auto) 12.4 H Absolute Lymphs (auto) 0.76 L Nucleated RBC % 0 Sodium 137 Potassium 3.9 Chloride 104 Carbon Dioxide 26.0 Anion Gap 7 BUN 18 Creatinine 1.07 H Estim Creat Clear Calc 43.08 Est GFR (MDRD) Af Amer 65 Est GFR (MDRD) Non-Af 54 L BUN/Creatinine Ratio 16.8 Glucose 159 H Lactic Acid 1.3 Calcium 9.1 Magnesium 2.1 Troponin I High Sens 11 Urine Color Yellow Urine Clarity Clear Urine pH 7.0 Ur Specific Flaxton 1.010 Urine Protein Negative Urine Glucose (UA) Normal Urine Ketones Negative Urine Occult Blood Negative Urine Nitrite Negative Urine Bilirubin Negative Urine Urobilinogen Normal Ur Leukocyte Esterase 25 H Urine RBC 0 SEEN Urine WBC 0 SEEN Ur Squamous Epith Cells 0 SEEN Urine Bacteria 0 SEEN Urine Mucus 0 SEEN 01/11/24 04:48 WBC RBC Hgb Hct MCV MCH MCHC RDW Std Deviation RDW Coeff of David Plt Count MPV Immature Gran % (Auto) Neut % (Auto) Lymph % (Auto) Mesa % (Auto) Eos % (Auto) Baso % (Auto) Absolute Neuts (auto) Absolute Lymphs (auto) Nucleated RBC % Sodium Potassium Chloride Carbon Dioxide Anion Gap BUN Creatinine Estim Creat Clear Calc Est GFR (MDRD) Af Amer Est GFR (MDRD) Non-Af BUN/Creatinine Ratio Glucose Lactic Acid Calcium Magnesium Troponin I High Sens 17 Urine Color Urine Clarity Urine pH Ur Specific Flaxton Urine Protein Urine Glucose (UA) Urine Ketones Urine Occult Blood Urine Nitrite Urine Bilirubin Urine Urobilinogen Ur Leukocyte Esterase Urine RBC Urine WBC Ur Squamous Epith Cells Urine Bacteria Urine Mucus Radiography Diagnostic Testing: Clinical Impression(s) from Imaging Studies Brain CT 01/11/24 02:32 IMPRESSION: No acute intracranial finding. Electronically Signed: Roman Higuera MD at 3:51 EST , Cervical Spine CT 01/11/24 02:32 IMPRESSION: No evidence of acute cervical spinal fracture or traumatic malalignment. Electronically Signed: Roman Higuera MD at 3:49 EST , Chest X-Ray 01/11/24 02:32 IMPRESSION: No focal consolidation or pneumothorax. Diffuse bronchial wall thickening as can be seen with bronchitis Electronically Signed: Roman Higuera MD at 3:36 EST , Pelvis X-Ray 01/11/24 02:32 IMPRESSION: Visualized, common iliac artery stents, left superficial femoral stent. No visualized fracture. Electronically Signed: Claribel Thomas MD at 4:26 EST , Chest CTA 01/11/24 06:34 IMPRESSION: 1. No pulmonary embolism. 2. 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 Collateralization of the right common carotid artery with the left common carotid artery. 3. Severe stenosis of the left subclavian artery. 4. 3 mm left upper lobe pulmonary nodule. Per Fleischner criteria, recommend follow-up CT of the chest in 12 months if the patient has increased risk factors for lung cancer. Otherwise no follow-up is recommended. Electronically Signed: Cecilio Delacruz DO at 7:53 EST , Rhythm Strip Rhythm Strip: wide-complex tachycardia, occ w/ P waves Rate: 170 Ectopy: None EKG Initial EKG: Attestation: I personally reviewed and interpreted this EKG as follows: Interpretation: Non-Specific ST Changes and - (wide-complex tachycardia) Prior EKG tracings: available for review Prior: Changed (12/02/23 NSR narrow QRS) Follow-up EKG: Attestation: I personally reviewed and interpreted this EKG as follows: Interpretation: No Acute Injury Pattern and Atrial Fibrillation (115) after spont cardioversion: Attestation: I personally reviewed and interpreted this EKG as follows: Interpretation: Sinus Rhythm and No Acute Injury Pattern Discharge Plan Triage Chief Complaint: Fall ED Provider: Jori Garcia Dx/Rx/DC Orders Clinical Impression: Paroxysmal atrial fibrillation with RVR, Contusion of buttock, Dysequilibrium, Contusion of neck, Closed head injury without loss of consciousness, Subclavian artery stenosis, left Instructions: AFib Dc, ED Peripheral Artery Disease (PAD) Prescriptions: No Action gabapentin 800 mg tablet 800 mg PO TID baclofen 20 mg tablet 20 mg PO Q8H levothyroxine 50 mcg tablet 50 mcg PO DAILY Patient Comments: take 1 tablet by mouth once daily oxycodone 10 mg tablet 10 mg PO Q6H PRN Patient Comments: take 1 tab q6 PRN for pain famotidine 20 mg tablet 20 mg PO DAILY cholecalciferol (vitamin D3) 5,000 UNIT tablet 5,000 unit PO DAILY Patient Comments: supplement dextromethorphan-guaifenesin [Mucinex DM] 60-1,200 mg tablet extended release 12 hr 1 tab PO Q12H 7 Days Qty: 14 0RF clopidogrel 75 mg tablet 75 mg PO DAILY Qty: 90 3RF metoprolol tartrate 25 mg tablet 12.5 mg PO BID Qty: 30 11RF Primary Care Provider: Daron Benton Referrals: Tye Barnett MD [Med Staff - Active Staff] - As soon as possible Daron Benton MD [Primary Care Provider] - Betsey Lindquist PA [Med Staff - Adv Practice Prof] - As soon as possible Activity Restrictions/Additional Instructions: In 2019, Dr. 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 Make an appointment to see him as soon as possible to have this reevaluated. Disposition Disposition: Home, Self Care What to do if you have Problems For any increased pain, shortness of breath, bleeding, nausea or vomiting, chestpain, or any unexpected problems, contact your Primary Care Provider. Call [facility] ([phone]) or report to the closest Emergency Room. Call 911 if necessary. 01/11/24813 <Electronically signed by Jori Garcia MD> Cosigner Signature (if applicable): CC: Dr. Tye Barnett MD; Dr. Daron Benton MD; MARIANA Candelario ~ Signed [facility] Work Phone: 1(523) 385-162301-26-2024 History of Present illness Narrative* Lizz Lynn APRN - DISASTER RESPONSE DIRECTOR - 12/14/2023 2:00 PM EST Visit type: Established Patient Reason for Visit: [...] after hospital: Pt states she presented to [facility] with dizziness, feeling [...] unsure how much solumedrol she received. From [facility] records: CT brain 12/02/23: no acute intracranial [...] have the dizziness when seated or lying down?no When you have an attack of dizziness [...] 04/04/2023 [APTT} FLP: No results found for: CHLPL, TRIG, HDL, LDLCALC, LDLDIRECT TSH: No results found for: TSH VITAMIN B12: No results found for: [id number] No results found for: PHENYTOIN, PHENOBARB, VALPROATE, CBMZ No components found for: TOPIRA @RESULTINGLABINFO@ No results found for: LEVETIRACETA, FERRITIN, CRP, DENNIS, ANCA No results found for: CHRISTIANO, IMMUNOGLOBUL, OLIGOBANDS No results found for: [id number], HEPCAB No results found for: CRP, ANATITER, ANCA FERRITIN: No results found for: FERRITIN ---- ECG 12 lead SINUS BRADYCARDIA PROBABLE LEFT ATRIAL ABNORMALITY No previous ECG available for comparison Electronically Signed On 04-05-2023 7:42:10 EDT by Juvenal Benton @[facility]THISPR[facility]@ IMPRESSION and PLAN: Problem List Items Addressed [...] 1 tablet on day 5 MRI from [facility] does not show reason for this; exam consistent with vertigo; will order vestibular theapy Vestibular therapy Referral to [facility]. No problem-specific Assessment & Plan notes found for this encounter. ANTWON Harrington CNP I spent 60 minutes caring for this patient today, reviewing labs, records, seeing the patient, documenting in the record and arranging for studies. Electronically signed by ANTWON Harrington CNP on @TDNR@ at @NOWNR@ documented in this [facility]01-26-2024 Instructions* Patient Instructions* ANTWON Harrington CNP - 12/14/2023 2:00 PM EST Prednisone 20mg: take 5 tablets on day 1, 4 tablets on day 2, 3 tablets on day 3, 2 tablets on day 4, and 1 tablet on day 5 Vestibular therapy at [facility] [place]Note 2] [phone] [facility] for eye exam: [phone] documented in this [facility]01-19-2024 Discharge summary Author Sachin Murillo [facility] December 07, 2023 12:49pm Note Date/Time December 07, 2023 1 2:38pm [facility] Medical Records Department [address] [place] [address] Instructions for Home/Discharge Instructions 12/07/23 1238 MR#: [id number] Acct: [id number] Name: ANGÉLICA YO Rep #:[id number] 3 : 1955 68 From: Sachin chan MD PCP: Dr. Daron Benton MD Status:ADM IN Discharge Instructions Diet Discharge Diet: Low fat / Low cholesterol Activity Discharge Activity: Return to Normal Activity Dressing / Incision Call your doctor if you observe: Fever of 101 or Higher, Shortness of breath, Dizziness, Fainting spells, Swelling in the ankles, Chest pain and Increased palpitations (irregular heartbeat) Follow Up Care Test Results: Test results from this visit will be discussed in further detail at your follow- up appointment, if applicable. Discharge Plan Admission Admit Date/Time: 12/02/23 11:22 Attending Provider: Sachin Murillo Primary Care Provider: Daron Benton Consulting Providers: Ruby Wynn; Kiley Carpenter; Arleen Estrada; Rima Riggins; Roman Mckeon; Deepika Graham; Maurilio Garland; Phil Terry; SARI MENA; Jose Santos; Rhiannon Farris; Kt Friend; Angie Shields; Jo Ann Krishnamurthy; Johnny Sepulveda; Nikole Allison; Gerald Suh; Kristopher Hernández; iSlvino Schmidt; Sarkis Brown; Simon Tellez; Michele Rascon; Kirsten Azevedo; Joseph Desai; Samina Mortensen; Keyona Davidson Instructions Additional Instructions / Restrictions: Follow-up with your PCP in 3 to 5 days to obtain outpatient lab work to monitor your hemoglobin. As discussed if you do notice bright red blood per rectum thendiscontinue your Eliquis and Plavix and call your doctor or return to the hospital Discharge Orders/Prescriptions Prescriptions: New amoxicillin-pot clavulanate 875-125 mg tablet 1 tab PO BID 4 Days Qty: 8 0RF Continued gabapentin 800 mg tablet 800 mg PO TID baclofen 20 mg tablet 20 mg PO Q8H levothyroxine 50 mcg tablet 50 mcg PO DAILY Patient Comments: take 1 tablet by mouth once daily oxycodone 10 mg tablet 10 mg PO Q6H PRN Patient Comments: take 1 tab q6 PRN for pain lisinopril 5 mg tablet 5 mg PO DAILY Qty: 30 11RF Hold Instructions: Hold for 7 days. cholecalciferol (vitamin D3) 5,000 UNIT tablet 5,000 unit PO DAILY Patient Comments: supplement dextromethorphan-guaifenesin [Mucinex DM] 60-1,200 mg tablet extended release 12 hr 1 tab PO Q12H 7 Days Qty: 14 0RF metoprolol tartrate 25 mg Tablet 12.5 mg PO BID 30 Days Qty: 30 0RF Eliquis 5 mg Tablet 5 mg PO BID 30 Days Qty: 60 0RF clopidogrel 75 mg tablet 75 mg PO DAILY Qty: 90 3RF Referrals / Follow Up: Daron Benton MD [Primary Care Provider] - Within 1 Week Disposition Disposition (needs filled in before D/C Order can be placed): Home Health Service 12/07/23 6821<Electronically signed by Sachin Murillo MD>Sachin Murillo MD CC: Jo Ann Krishnamurthy; Ruby Wynn; Rima Riggins; Michele Crawley; Kiley Carpenter MD;Angie Shields MD; Kt Friend MD; Deepika Graham MD; Dr. Lyle Mena MD; Dr. Roman Mckeon MD; Dr. Johnny Sepulveda MD; Dr. Daron Benton MD; Dr. Nikole Allison MD; Dr. Kristopher Hernández MD; Dr. Gerald Suh MD; Dr. Silvino Schmidt DO; Dr.Mhd Puneet Tellez MD; Dr. Sarkis Brown MD; Dr. Kirsten Azevedo MD; Dr. Joseph Desai MD; Dr. Samina Mortensen MD; Phil Terry MD; Maurilio Garland MD; Arleen Estrada DO; Jose Santos MD; Rhiannon Farris DO; Keyona Davidson MD ~ [facility] Work Phone: [phone]) 878-145001-18-2024 Progress note Author Sachin Murillo [facility] December 06, 2023 9:04am Note Date/Time December 06, 2023 9 :04am [facility] Medical Records Department [address] [place] [id number] Progress Note - Hospitalist 12/06/23 0900 MR#: [id number] Acct: [id number] Name: ANGÉLICA YO Rep #:[id number] 3 : 1955 68 From: Sachin chan MD PCP: Dr. Daron Benton MD Status:ADM IN Location: ICU ICU02-1 Subjective Subjective Back to her baseline it appears. She feels little bit weak and is worried aboutgoing home Objective Data Objective Data Vital Signs: Vital Signs Temp Pulse Resp BP Pulse Ox O2 Del Method O2 Flow Rate 97.6 F L 53 L 18 157/87 H 97 Room Air 1 12/06/23 06:00 12/06/23 06:00 12/06/23 06:00 12/06/23 06:00 12/06/23 07:25 12/06/23 07:25 12/04/23 07:00 Oxygen Flow Rate (L/min) 1 Oxygen Delivery Method Room Air Weight: 123 lb 7.342 oz Body Mass Index (BMI) 20.5 Intake & Output: Intake and Output for Last 24 Hours 12/05/23 12/06/23 12/07/23 03:59 03:59 03:59 Intake Total 340 / 340 636 / 636 212 Output Total 200 / 200 Balance 140 / 140 636 / 636 Lab / Micro Data 12/06/23 04:50 12/06/23 04:50 Labs: Laboratory Results - last 24 hr 12/06/23 04:50: WBC 6.7, RBC 2.93 L, Hgb 8.5 L, Hct 26.8 L, MCV 91.5, MCH 29.0, MCHC 31.7 L, RDW Std Deviation 54.4 H, RDW Coeff of David 16.2 H, Plt Count 209, MPV 9.2, Immature Gran % (Auto) 0.600, Neut % (Auto) 79.3 H, Lymph % (Auto) 10.6L, Mesa % (Auto) 9.4, Eos % (Auto) 0.0, Baso % (Auto) 0.1, Absolute Neuts (auto)5.3, Absolute Lymphs (auto) 0.71 L, Nucleated RBC % 0, Sodium 144, Potassium 3.8, Chloride 113 H, Carbon Dioxide 28.0, Anion Gap 3 L, BUN 34 H, Creatinine 0.99, Estim Creat Clear Calc 47.41, Est GFR (MDRD) Af Amer 71, Est GFR (MDRD) Non-Af 59 L, BUN/Creatinine Ratio 34.3 H, Glucose 91, Calcium 7.5 L Micro: Microbiology 12/02/23 11:38 Blood Culture (Wb) - Anticubital Left Blood Culture - Preliminary No growth in 48 hours. 12/02/23 10:27 Urine, Catheterized Urine Culture - Final Culture exhibits no growth. 12/02/23 07:37 Mucosa - Nose SARS-CoV-2, Influenza & RSV (PCR) - Final Radiography Diagnostic Testing: Radiology Impression Brain MRI 12/05/23 12:21 IMPRESSION: No evidence for acute infarct. Mild chronic involutional and white matter changes. Electronically Signed: Angle Reynoso MD at 13:44 EST , Rhythm Strip Rhythm Strip: Sinus Rhythm Rate: 55 Ectopy: None Physical Exam Narrative General: Alert and oriented x 3, cooperative, no acute distress HEENT: Atraumatic, PERRLA, EOMI, Normocephalic Oral: Moist Mucosa Neck: Supple, No JVD Lungs: Diminished, Normal air movement, No rhonchi, No wheeze, No rales Cardiovascular: Regular rate, Regular Rhythm, Normal S1, Normal S2, No murmurs Abdomen: Soft, Non Tender, Non-Distended, No Hepato-splenomegaly Extremities: No edema, Capillary Refill Less than 3 Seconds Skin: No rashes, No breakdown Musculoskeletal: No Tenderness to Palpation of Joints or Extremities Neurological: No focal neurologic deficits, moves all extremities Psych/Mental Status: Flat Assessment & Plan Assessment/Plan (1) Weakness: PLAN: Plan 1. Progressive generalized weakness in the setting of MS with hypertensive urgency/aspiration pneumonia/chronic pain ? Differential diagnoses include patient possible cystitis versus MS flareup. Plan is to treat the underlying suspected cystitis and if no improvement patientto be initiated on steroids consult subsequently placed to teleneurology 12/03/2023: Stroke alert was called for change though it is unclear as to what her baseline has been since admission with a UTI and generalized weakness will attempt to get an MRI without contrast to evaluate for possible stroke in the meantime she is significantly hypertensive and she was given a dose of labetalolin the CT scanner this will be made every 4 as needed as well as the hydralazineshe has on board currently receiving 1 g of Solu-Medrol daily per recommendations neurology 12/04/2023: Given her behaviors may need to be intubated for an MRI will await neurology evaluation of her this afternoon. Blood cultures and urine cultures are negative. She did have an aspiration event yesterday when she went for the MRI where she laid flat she has a white count today that is likely related to her 1 g of Solu-Medrol daily however given her aspiration event yesterday she was started on Unasyn. EEG is pending. She had a CTA of the head and neck overnight which is unremarkable 12/05/2023: NG placed overnight restart her home medications. Repeat EEG is pending and CT of the brain was unremarkable appreciate neurology's assistance 12/06/2023: Symptomatology is completely resolved continue with Unasyn and transfer her out of the ICU 2. paroxysmal A-fib/history of CVA/PAD with iliac stent/history of TIA/nonobstructive CAD/HTN/HLD ? Continue with her home Eliquis during her last admission her A-fib had resolved prior to discharge ? Echo with an EF of 70% and stage II diastolic dysfunction with an RVSP of 55 5mmHg the last time she was here ? She also had dark stools last time she was here but she was taking Pepto- Bismol at the time however at that time her hemoglobin was stable ? Continue with her home blood pressure medications monitor make adjustments as necessary 3. Anemia ? Unclear as to the cause will obtain a fecal occult stool as well as iron studies 4. Hypothyroidism ? Stable ? Continue with Synthroid DVT: Eliquis Capacity Legal Python Engineer Reflex Medical hold order details:: IF a medical hold is selected below, a suggested order for a MEDICAL HOLD will reflex upon signing the document. Next of kin: [place] law dictates a PRIORITY LIST for identifying legal decision-maker/legal next of kin in the following order (LNOK): 1st: The patient?s legal guardian, if any 2nd: The patient's spouse (if status is questionable, consult Risk Management) 3rd: The patient?s adult child(blaine) (majority, if multiple children) 4th: The patient?s parents 5th: The patient?s adult siblings (majority, if multiple children siblings) Charges/Coding Visit Charges Inpatient E&M: 90953 Subs Hosp L2 12/06/23 0904 <Electronically signed by Sachin Murillo MD> Cosigner Signature (if applicable): CC: ~ Signed [facility] Work Phone: [phone]) 441-380101-17-2024 Progress note Author Kiley Carpenter [facility] December 05, 2023 3:42pm Note Date/Time December 05, 2023 1 :57pm [facility] Medical Records Department [address] [place] [address] Progress Note - Neurology 12/05/23 1348 MR#: [id number] Acct: [id number] Name: ANGÉLICA YO Rep #:[id number] 3 : 1955 68 From: Kiley Carpenter MD PCP: Dr. Daron Benton MD Status:ADM IN Location: ICU ICU02-1 Assessment and Plan: Neuro Assessment/Plan ANGÉLICA YO is a 68 F with a past medical history of MS, being evaluated by Teleneurology for possible MS exacerbation. Symptoms do seem in line with possible exacerbation vs pseudoexacerbation. Given symptoms started several daysafter getting the flu and when she was improving, believe she is likely does have some exacerbation. Will treat empirically, but also obtain MRI to eval the disease progression and any new lesions. If there are new and active demyelinating lesions then would need to increase duration of steroids and continue monitoring in order to assess improvement. Currently confusion improved and EEG this morning captured atypical movement events which had no epileptogenic correlation on video. She appears clinically improved, event wrt her weakness and some of her eye findings. Imaging benign for stroke and there is no significan white matter burden noted. She is s/p 3 days of steroid burst for possible MS exacerbation. Do not recommend additional changes to medications. Continue baclofen via NGT while NPO to avoid baclofen withdrawal. Followup with Neurologist in 4-6 weeks. I personally attended this patient and spent a total time of 30 minutes evaluating this patient including clinical assessment, review of chart, medical history imaging, and determining appropriate treatment and workup. Subject: Neurology Subjective 12/03: Pt suddenly confused and altered in the AM on 12/03, seen by telestroke. Oneval 12/03 she was complaining about headache, withdrew in b/l LE and able to answer some yes/no questions. 12/04: had EEG this AM. Since then has begun to have jerking movements and tremors and staring episodes. She has gotten 3 doses of steroids. 12/05: This AM looks significantly improved, prior episodes caught on EEG with noclear correlation. NIHSS NIHSS Nursing Documentation NIHSS Nursing Documentation: NIHSS: Ischemic Stroke/TIA Start: 12/03/23 09:41 Freq: [id number] Status: Active Protocol: Activity Type Activity Date Activity User E-sign Co-sign Detail Recorded Client Recorded Date Recorded By Document 12/05/23 10:00 RV Desktop 12/05/23 10:50 RV 12/05/23 10:00 NIH Stroke Scale [NIHSS] A score of 0 is normal or asymptomatic . Total possible score is 42. Inpatient: RN or Physician to activate a stroke alert for onset of new stroke symptoms or with NIHSS increase >/= 3 points. Following change in neurological status, NIHSS will be performed per physician order or more frequently PRN. -1a. Level of Consciousness Alert; keenly responsive -1b. LOC Questions Answers BOTH questions correctly. -1c. LOC Commands Performs both tasks correctly . -2. Best Gaze Normal -3. Visual No visual loss -4. Facial Palsy Normal symmetrical movements -5a. Left Arm No drift; arm holds 90 (or 45 ) degrees for full 10 seconds -5b. Right Arm No drift; arm holds 90 (or 45 ) degrees for full 10 seconds -6a. Left Leg No drift; leg holds 30-degree position for full 5 seconds -6b. Right Leg No drift; leg holds 30-degree position for full 5 seconds -7. Limb Ataxia Absent -8. Sensory Normal; no sensory loss -9. Best Language No aphasia; normal -10. Dysarthria Normal -11. Extinction and Inattention No abnormality -Total 0 Query Text:A score of 0 is normal or asymptomatic. Total possible score is 42 . ED: Notify Physician for NIHSS increase by > / = 3 points. Inpatient: RN or Physician to activate a stroke alert for NIHSS increase of > / = 3 points. EEG Results Procedure Details EEG Procedure Details: Indication: ?rule out seizure Technical Description: This is a 21-channel digital EEG recording with time- locked video and single-channel electrocardiogram. Electrodes are placed according to the 10 to 20 International System. Additional T1 and T2 electrodes were placed. The patient was monitored continuously by EEG technicians by video and EEG recording was reviewed intermittently with annotations to the EEG record made every two hours.? Portions of this record are reviewed using bandpass filters of 1 to 70 Hz and sensitivity of 7mV/mm. ? EEG DESCRIPTION ? Background: This recording was obtained during awake and drowsy state. In the maximally alert state, a posterior dominant rhythm was a symmetric, reactive, well-modulated 8 Hz with a normal frequency-amplitude gradient.?? During drowsiness, there was attenuation of the waking background. Stage II sleep architecture was not present. ? Activation Procedures: Hyperventilation induced normal physiological driving. Sporadic Epileptiform Discharges: none Focal slow activity: none Rhythmic or Periodic activity: ?none ? Seizures: none Patient Events: Numerous episode of lip and jaw smacking were captured with no EEG correlation. EEG DIAGNOSIS Normal EEG ? CLINICAL INTERPRETATION This routine EEG is normal. Numerous episode of lip and jaw smacking were captured with no EEG correlation and hence are not epileptic in etiology. Objective Data Objective Data Vital Signs: Vital Signs Temp Pulse Resp BP Pulse Ox O2 Del Method O2 Flow Rate 96.8 F L 65 16 200/76 H 98 Room Air 1 12/05/23 12:00 12/05/23 13:14 12/05/23 13:14 12/05/23 13:14 12/05/23 12:20 12/05/23 13:14 12/04/23 07:00 Oxygen Flow Rate (L/min) 1 Oxygen Delivery Method Room Air Weight: 56 kg Body Mass Index (BMI) 20.5 Intake & Output: Intake and Output for Last 24 Hours 12/03/23 12/04/23 12/05/23 23:59 23:59 23:59 Intake Total 2166 / 2166 340 / 340 112 / 112 Output Total 200 / 200 Balance 2166 / 2166 140 / 140 112 / 112 Lab / Micro Data 12/05/23 05:10 12/05/23 05:10 Labs: Laboratory Results - last 24 hr 12/05/23 05:10: WBC 8.4, RBC 3.11 L, Hgb 8.9 L, Hct 27.9 L, MCV 89.7, MCH 28.6, MCHC 31.9 L, RDW Std Deviation 53.8 H, RDW Coeff of David 16.6 H, Plt Count 277, MPV 9.4, Immature Gran % (Auto) 0.600, Neut % (Auto) 90.5 H, Lymph % (Auto) 5.1 L, Mesa % (Auto) 3.7, Eos % (Auto) 0.0, Baso % (Auto) 0.1, Absolute Neuts (auto) 7.6, Absolute Lymphs (auto) 0.43 L, Nucleated RBC % 0, Sodium 146 H, Potassium 4.1, Chloride 114 H, Carbon Dioxide 25.0, Anion Gap 7, BUN 31 H, Creatinine 1.17 H, Estim Creat Clear Calc 40.12, Est GFR (MDRD) Af Amer 59 L, Est GFR (MDRD) Non-Af 49 L, BUN/Creatinine Ratio 26.5 H, Glucose 122 H, Calcium 8.2 L Micro: Microbiology 12/02/23 11:38 Blood Culture (Wb) - Anticubital Left Blood Culture - Preliminary No growth in 48 hours. 12/02/23 10:27 Urine, Catheterized Urine Culture - Final Culture exhibits no growth. 12/02/23 07:37 Mucosa - Nose SARS-CoV-2, Influenza & RSV (PCR) - Final Radiography Diagnostic Testing: Radiology Impression KUB X-Ray 12/04/23 18:13 IMPRESSION: Nasogastric tube coiled in the midline with tip likely in the fundus of the stomach. No bowel obstruction. Electronically Signed: Elijah Pollack MD at 18:30 EST , Brain CT 12/05/23 05:55 IMPRESSION: 1. Embolization coils, suggesting previous treatment of aneurysm. 2. Mild chronic involutional changes of the brain. 3. No demonstrated acute intracranial process. Electronically Signed: Enzo Bennett MD at 7:40 EST , Brain MRI 12/05/23 12:21 IMPRESSION: No evidence for acute infarct. Mild chronic involutional and white matter changes. Electronically Signed: Angle Reynoso MD at 13:44 EST , Rhythm Strip Rhythm Strip: Sinus Rhythm Rate: 55 Ectopy: None Physical Exam Narrative Mental Status: The patient was alert and oriented to time, place, and person. Normal recent/remote memory, concentration, and general fund of knowledge. Language: speech is clear.? Naming, repetition, fluency, and comprehension intact. Cranial Nerves: R pupil 3.5mm briskly reactive, L pupil 3mm reactive to light, no reactivity on R pupil with swinging eye test. EOMI, visual duarte full, no facial asymmetry, facial sensation intact, hearing intact, tongue midline, no evidence of atrophy or fibrillations. tongue with R deviation No clear nystagmus Motor: normal bulk, tone, and strength throughout. No pronator drift or satelliting. Upper and lower extremities equal bilaterally. -? Detailed strength exam as performed by the nurse/JENNIFER and witnessed by the physician: R L SA 5 5 EE 5 5 EF 5 5 WE WF Computer Peripheral Equipment Operator 5 5 HF 3 5 KE 4 5 KF 5 4 DF 5 5 PF 5 5 -? Sensation- Intact to light touch bilaterally -? Coordination: improved ataxia on the RLE (not prominent); b/l UE with no ataxia -? Gait- deferred 12/05/23 1542 <Electronically signed by Kiley Carpenter MD> Cosigner Signature (if applicable): CC: ~ Signed [facility] Work Phone: [phone] 709-303501-17-2024 Progress note Author Sachin Murillo [facility] December 05, 2023 10:21am Note Date/Time December 05, 2023 1 0:21am [facility] Medical Records Department [address] [place] [address] Progress Note - Hospitalist 12/05/23 1016 MR#: [id number] Acct: [id number] Name: ANGÉLICA YO Rep #:[id number] 1 : 1955 68 From: Sachin chan MD PCP: Dr. Daron Benton MD Status:ADM IN Location: ICU ICU02-1 Subjective Subjective NG placed last night able to restart her home medications. No new issues, she appears to be back to baseline Objective Data Objective Data Vital Signs: Vital Signs Temp Pulse Resp BP Pulse Ox O2 Del Method O2 Flow Rate 97.4 F L 72 14 148/71 H 96 Room Air 1 12/05/23 04:00 12/05/23 09:00 12/05/23 09:00 12/05/23 09:00 12/05/23 09:00 12/05/23 09:00 12/04/23 07:00 Oxygen Flow Rate (L/min) 1 Oxygen Delivery Method Room Air Weight: 123 lb 7.342 oz Body Mass Index (BMI) 20.5 Intake & Output: Intake and Output for Last 24 Hours 12/04/23 12/05/23 12/06/23 03:59 03:59 03:59 Intake Total 1166 / 1166 340 / 340 112 / 112 Output Total 200 / 200 Balance 1166 / 1166 140 / 140 112 / 112 Lab / Micro Data 12/05/23 05:10 12/05/23 05:10 Labs: Laboratory Results - last 24 hr 12/05/23 05:10: WBC 8.4, RBC 3.11 L, Hgb 8.9 L, Hct 27.9 L, MCV 89.7, MCH 28.6, MCHC 31.9 L, RDW Std Deviation 53.8 H, RDW Coeff of David 16.6 H, Plt Count 277, MPV 9.4, Immature Gran % (Auto) 0.600, Neut % (Auto) 90.5 H, Lymph % (Auto) 5.1 L, Mesa % (Auto) 3.7, Eos % (Auto) 0.0, Baso % (Auto) 0.1, Absolute Neuts (auto)7.6, Absolute Lymphs (auto) 0.43 L, Nucleated RBC % 0, Sodium 146 H, Potassium 4.1, Chloride 114 H, Carbon Dioxide 25.0, Anion Gap 7, BUN 31 H, Creatinine 1.17H, Estim Creat Clear Calc 40.12, Est GFR (MDRD) Af Amer 59 L, Est GFR (MDRD) Non-Af 49 L, BUN/Creatinine Ratio 26.5 H, Glucose 122 H, Calcium 8.2 L Micro: Microbiology 12/02/23 11:38 Blood Culture (Wb) - Anticubital Left Blood Culture - Preliminary No growth in 48 hours. 12/02/23 10:27 Urine, Catheterized Urine Culture - Final Culture exhibits no growth. 12/02/23 07:37 Mucosa - Nose SARS-CoV-2, Influenza & RSV (PCR) - Final Radiography Diagnostic Testing: Radiology Impression KUB X-Ray 12/04/23 18:13 IMPRESSION: Nasogastric tube coiled in the midline with tip likely in the fundus of the stomach. No bowel obstruction. Electronically Signed: Elijah Pollack MD at 18:30 EST , Brain CT 12/05/23 05:55 IMPRESSION: 1. Embolization coils, suggesting previous treatment of aneurysm. 2. Mild chronic involutional changes of the brain. 3. No demonstrated acute intracranial process. Electronically Signed: Enzo Bennett MD at 7:40 EST , Rhythm Strip Rhythm Strip: Sinus Rhythm Rate: 55 Ectopy: None Physical Exam Narrative General: Alert and oriented x 3, cooperative, no acute distress HEENT: Atraumatic, PERRLA, EOMI, Normocephalic Oral: Moist Mucosa Neck: Supple, No JVD Lungs: Diminished, Normal air movement, No rhonchi, No wheeze, No rales Cardiovascular: Regular rate, Regular Rhythm, Normal S1, Normal S2, No murmurs Abdomen: Soft, Non Tender, Non-Distended, No Hepato-splenomegaly Extremities: No edema, Capillary Refill Less than 3 Seconds Skin: No rashes, No breakdown Musculoskeletal: No Tenderness to Palpation of Joints or Extremities Neurological: No focal neurologic deficits, moves all extremities Psych/Mental Status: Flat Assessment & Plan Assessment/Plan (1) Weakness: PLAN: Plan 1. Progressive generalized weakness in the setting of MS with hypertensive urgency/aspiration pneumonia ? Differential diagnoses include patient possible cystitis versus MS flareup. Plan is to treat the underlying suspected cystitis and if no improvement patientto be initiated on steroids consult subsequently placed to teleneurology 12/03/2023: Stroke alert was called for change though it is unclear as to what her baseline has been since admission with a UTI and generalized weakness will attempt to get an MRI without contrast to evaluate for possible stroke in the meantime she is significantly hypertensive and she was given a dose of labetalolin the CT scanner this will be made every 4 as needed as well as the hydralazineshe has on board currently receiving 1 g of Solu-Medrol daily per recommendations neurology 12/04/2023: Given her behaviors may need to be intubated for an MRI will await neurology evaluation of her this afternoon. Blood cultures and urine cultures are negative. She did have an aspiration event yesterday when she went for the MRI where she laid flat she has a white count today that is likely related to her 1 g of Solu-Medrol daily however given her aspiration event yesterday she was started on Unasyn. EEG is pending. She had a CTA of the head and neck overnight which is unremarkable 12/05/2023: NG placed overnight restart her home medications. Repeat EEG is pending and CT of the brain was unremarkable appreciate neurology's assistance 2. Paroxysmal A-fib ? Rate controlled on systemic anticoagulation with apixaban continue 3. Essential hypertension ? Patient blood pressure control not optimal due to continuing home meds added hydralazine as needed. Blood pressure greater than 160 12/03/2023: Have to broaden her blood pressure medications to try to get better control unclear if she is consistently taking her medications at home 7. Tobacco dependence - Counseled on cessation, offered nicotine patch for tobacco cravings 8. Hypothyroidism - Patient is on levothyroxine home dose continued 9. Peripheral arterial disease ? With history of iliac stent As well as bilateral carotid endarterectomy. Patient is on antiplatelet therapy 10. Psoriatic arthritis ? Patient not on any DMARDs, will continue with pain meds as needed DVT: Eliquis Capacity Legal Python Engineer Reflex Medical hold order details:: IF a medical hold is selected below, a suggested order for a MEDICAL HOLD will reflex upon signing the document. Next of kin: [place] law dictates a PRIORITY LIST for identifying legal decision-maker/legal next of kin in the following order (LNOK): 1st: The patient?s legal guardian, if any 2nd: The patient's spouse (if status is questionable, consult Risk Management) 3rd: The patient?s adult child(blaine) (majority, if multiple children) 4th: The patient?s parents 5th: The patient?s adult siblings (majority, if multiple children siblings) Charges/Coding Visit Charges Inpatient E&M: 37014 Subs Hosp L2 12/05/23 1021 <Electronically signed by Sachin Murillo MD> Cosigner Signature (if applicable): CC: ~ Signed [facility] Work Phone: [phone]) 532-804001-17-2024 Progress note Author Jorge Hurtado [facility] December 05, 2023 8:31am Note Date/Time December 05, 2023 7 :39am [facility] Medical Records Department [address] [place] [address] Progress Note - Motion Picture Camera Lens Technician 12/05/23 0737 MR#: [id number] Acct: [id number] Name: ANGÉLICA YO Rep #:[id number] 1 : 1955 68 From: Jorge Hurtado DO PCP: Dr. Daron Benton MD Status:ADM IN Location: ICU ICU02-1 Assessment & Plan Assessment/Plan (1) Weakness: PLAN: Plan RECOMMENDATIONS: 1. Continue high-dose steroids. 2. Additional workup and intervention per neurology recommendations. 3. Continue Unasyn over concerns for aspiration. 4. Dietary advancement as tolerated. 5. We will sign off from a pulmonary/critical care perspective. Please call with any additional questions. IMPRESSIONS: 1. Progressive weakness and encephalopathy Clinical concern for underlying MS flare. Low suspicion for underlying urinary tract source of infection. The patient was initiated on high-dose steroids by neurology. CT imaging of the head has not provided any additional insight thus far. Liver function, ammonia and TSH are within normal limits. Given the reported concerns for potential aspiration event, will continue empiric Unasyn. Plan to continue current supportive care. The patient appears significantly improved today from a neurologic perspective. 2. History of paroxysmal atrial fibrillation/hypothyroidism/peripheral vasculardisease/psoriatic arthritis Complicates care, management, recovery and prognosis. Continue current supportive care as noted above. This note was generated with [employer] dictation software. It may contain incorrectwords, spelling, and punctuation that were not noted in checking the note beforesigning. Subjective Subjective The patient was seen and examined at the bedside this morning. Events from the last 24 hours have been reviewed. The patient is currently afebrile, hemodynamically stable and maintaining appropriate oxygen saturations on room air. The patient is completely lucid, cooperative and appropriately interactivethis morning. She is alert and oriented to person place and time. She does notrecall the events that transpired yesterday. Objective Data Objective Data The patient's most recent lab work, culture data and imaging studies have all been personally reviewed. Vital Signs: Vital Signs Temp Pulse Resp BP Pulse Ox O2 Del Method O2 Flow Rate 97.4 F L 74 15 179/76 H 98 Room Air 1 12/05/23 04:00 12/05/23 07:19 12/05/23 07:00 12/05/23 07:19 12/05/23 07:00 12/05/23 07:00 12/04/23 07:00 Oxygen Flow Rate (L/min) 1 Oxygen Delivery Method Room Air Weight: 123 lb 7.342 oz Body Mass Index (BMI) 20.5 Intake & Output: Intake and Output for Last 24 Hours 12/03/23 12/04/23 12/05/23 23:59 23:59 23:59 Intake Total 2166 / 2166 340 / 340 112 / 112 Output Total 200 / 200 Balance 2166 / 2166 140 / 140 112 / 112 Lab / Micro Data Attestation: I reviewed the patient's lab results. 12/05/23 05:10 12/05/23 05:10 Labs: Laboratory Results - last 24 hr 12/04/23 04:25: Total Bilirubin 0.20, Direct Bilirubin 0.11, AST 17, ALT 15, Alkaline Phosphatase 127 H, Total Protein 6.4, Albumin 2.7 L, Globulin 3.7, TSH 1.65 12/04/23 08:40: Ammonia 13.0 12/05/23 05:10: WBC 8.4, RBC 3.11 L, Hgb 8.9 L, Hct 27.9 L, MCV 89.7, MCH 28.6, MCHC 31.9 L, RDW Std Deviation 53.8 H, RDW Coeff of David 16.6 H, Plt Count 277, MPV 9.4, Immature Gran % (Auto) 0.600, Neut % (Auto) 90.5 H, Lymph % (Auto) 5.1 L, Mesa % (Auto) 3.7, Eos % (Auto) 0.0, Baso % (Auto) 0.1, Absolute Neuts (auto)7.6, Absolute Lymphs (auto) 0.43 L, Nucleated RBC % 0, Sodium 146 H, Potassium 4.1, Chloride 114 H, Carbon Dioxide 25.0, Anion Gap 7, BUN 31 H, Creatinine 1.17H, Estim Creat Clear Calc 40.12, Est GFR (MDRD) Af Amer 59 L, Est GFR (MDRD) Non-Af 49 L, BUN/Creatinine Ratio 26.5 H, Glucose 122 H, Calcium 8.2 L Micro: Microbiology 12/02/23 11:38 Blood Culture (Wb) - Anticubital Left Blood Culture - Preliminary No growth in 48 hours. 12/02/23 10:27 Urine, Catheterized Urine Culture - Final Culture exhibits no growth. 12/02/23 07:37 Mucosa - Nose SARS-CoV-2, Influenza & RSV (PCR) - Final Radiography Diagnostic Testing: Radiology Impression KUB X-Ray 12/04/23 18:13 IMPRESSION: Nasogastric tube coiled in the midline with tip likely in the fundus of the stomach. No bowel obstruction. Electronically Signed: Elijah Pollack MD at 18:30 EST , Rhythm Strip Rhythm Strip: Sinus Rhythm Rate: 55 Ectopy: None Physical Exam Const alert, oriented x3 and no apparent distress General Appearance: cooperative HEENT normocephalic and head/scalp atraumatic Eyes PERRL, EOMs intact bilaterally and conjunctivae normal Neck supple General: trachea midline Chest inspection of chest normal Resp normal respiratory effort Auscultation: diminished lung sounds; Negative for rales, rhonchi or wheezes Cardio regular rate and regular rhythm GI normal to inspection, nondistended, normoactive bowel sounds Extremity no clubbing, cyanosis or edema Skin no rashes or lesions noted Neuro oriented x3, CN's II-XII intact bilaterally and moves all extremities Psych cooperative Charges/Coding Visit Charges Inpatient E&M: 45515 Subs Hosp L2 12/05/23 0831 <Electronically signed by Jorge Hurtado DO> Cosigner Signature (if applicable): CC: ~ Signed [facility] Work Phone: [phone] 667-666101-17-2024 Progress note Author Kiley Carpenter [facility] December 04, 2023 10:44pm Note Date/Time December 04, 2023 8 :19pm [facility] Medical Records Department [address] [place] [address] Progress Note - Neurology 12/04/232014 MR#: [id number] Acct: [id number] Name: ANGÉLICA YO Rep #:[id number] 8 : 1955 68 From: Kiley Carpenter MD PCP: Dr. Daron Benton MD Status:ADM IN Location: ICU ICU02-1 Assessment and Plan: Neuro Assessment/Plan ANGÉLICA YO is a 68 F with a past medical history of MS, being evaluated by Teleneurology for possible MS exacerbation. Symptoms do seem in line with possible exacerbation vs pseudoexacerbation. Given symptoms started several daysafter getting the flu and when she was improving, believe she is likely does have some exacerbation. Will treat empirically, but also obtain MRI to eval the disease progression and any new lesions. If there are new and active demyelinating lesions then would need to increase duration of steroids and continue monitoring in order to assess improvement. Subsequently patient developed confusion, severe headache and then aspiration pneumonia with oral secretions. Cannot rule out some steroid psychosis. On her current exam, there is a embellished and functional component to it and patient appears delirious. EEG has been unremarkable event for encephalopathy. - repeat CTH in AM - serial EEG routine tomorrow - s/p steroid burst for possible MS exacerbation, can discontinue this - hold on MRI as pt likely cannot tolerate - delirium precautions as possible - treatment pneumonia per primary team. I personally attended this patient and spent a total time of 30 minutes evaluating this patient including clinical assessment, review of chart, medical history imaging, and determining appropriate treatment and workup. Subject: Neurology Subjective 12/03: Pt suddenly confused and altered in the AM on 12/03, seen by telestroke. Oneval 12/03 she was complaining about headache, withdrew in b/l LE and able to answer some yes/no questions. 12/04: had EEG this AM. Since then has begun to have jerking movements and tremors and staring episodes. She has gotten 3 doses of steroids. NIHSS NIHSS Nursing Documentation NIHSS Nursing Documentation: NIHSS: Ischemic Stroke/TIA Start: 12/03/23 09:41 Freq: [id number] Status: Active Protocol: Activity Type Activity Date Activity User E-sign Co-sign Detail Recorded Client Recorded Date Recorded By Document 12/04/23 17:29 KES Desktop 12/04/23 17:30 KES 12/04/23 17:29 NIH Stroke Scale [NIHSS] A score of 0 is normal or asymptomatic . Total possible score is 42. Inpatient: RN or Physician to activate a stroke alert for onset of new stroke symptoms or with NIHSS increase >/= 3 points. Following change in neurological status, NIHSS will be performed per physician order or more frequently PRN. -1a. Level of Consciousness Alert; keenly responsive -1b. LOC Questions Answers BOTH questions correctly. -1c. LOC Commands Performs both tasks correctly . -2. Best Gaze Normal -3. Visual No visual loss -4. Facial Palsy Minor paralysis (flattened nasolabial fold , asymmetry on smiling) -5a. Left Arm No drift; arm holds 90 (or 45 ) degrees for full 10 seconds -5b. Right Arm Drift; arm drifts downward but doesn?t hit the bed -6a. Left Leg No drift; leg holds 30-degree position for full 5 seconds -6b. Right Leg Drift; leg falls by the end of 5- seconds, but does not hit bed -7. Limb Ataxia Present in 1 limb -8. Sensory Normal; no sensory loss -9. Best Language No aphasia; normal -10. Dysarthria Mild-to- moderate dysarthria; -11. Extinction and Inattention No abnormality -Total 5 Query Text:A score of 0 is normal or asymptomatic. Total possible score is 42 . ED: Notify Physician for NIHSS increase by > / = 3 points. Inpatient: RN or Physician to activate a stroke alert for NIHSS increase of > / = 3 points. EEG Results Procedure Details EEG Procedure Details: alert state, a posterior dominant rhythm was a symmetric, reactive, well- modulated 7-8 Hz with a normal frequency-amplitude gradient.?? During drowsiness, there was attenuation of the waking background. Stage II sleep architecture was not visualized. ? Activation Procedures: Photic stimulation induced normal physiological driving. Sporadic Epileptiform Discharges: none Focal slow activity: none Rhythmic or Periodic activity: ?none ? Seizures: none Patient Events: none EEG DIAGNOSIS Normal EEG ? CLINICAL INTERPRETATION This routine EEG is normal. Objective Data Objective Data Vital Signs: Vital Signs Temp Pulse Resp BP Pulse Ox O2 Del Method O2 Flow Rate 97.0 F L 92 20 H 176/92 H 96 Room Air 1 12/04/23 18:00 12/04/23 19:00 12/04/23 19:00 12/04/23 19:00 12/04/23 19:00 12/04/23 19:00 12/04/23 07:00 Oxygen Flow Rate (L/min) 1 Oxygen Delivery Method Room Air Weight: 56 kg Body Mass Index (BMI) 20.5 Intake & Output: Intake and Output for Last 24 Hours 12/02/23 12/03/23 12/04/23 23:59 23:59 23:59 Intake Total 406 / 406 2166 / 2166 228 / 228 Output Total 200 / 200 Balance 406 / 406 2166 / 2166 Lab / Micro Data 12/04/23 04:25 12/04/23 04:25 Labs: Laboratory Results - last 24 hr 12/04/23 04:25: WBC 13.0 H, RBC 3.74 L, Hgb 10.7 L, Hct 33.2 L, MCV 88.8, MCH 28.6, MCHC 32.2, RDW Std Deviation 51.7 H, RDW Coeff of David 16.0 H, Plt Count 379, MPV 9.4, Immature Gran % (Auto) 0.800, Neut % (Auto) 91.9 H, Lymph % (Auto)4.1 L, Mesa % (Auto) 3.1, Eos % (Auto) 0.0, Baso % (Auto) 0.1, Absolute Neuts (auto) 12.0 H, Absolute Lymphs (auto) 0.54 L, Nucleated RBC % 0, Differential Comment SCANNED, Sodium 143, Potassium 4.4, Chloride 112 H, Carbon Dioxide 21.0,Anion Gap 10, BUN 22 H, Creatinine 1.22 H, Estim Creat Clear Calc 38.47, Est GFR(MDRD) Af Amer 56 L, Est GFR (MDRD) Non-Af 46 L, BUN/Creatinine Ratio 18.0, Glucose 160 H, Calcium 8.8, Total Bilirubin 0.20, Direct Bilirubin 0.11, AST 17,ALT 15, Alkaline Phosphatase 127 H, Total Protein 6.4, Albumin 2.7 L, Globulin 3.7, TSH 1.65 12/04/23 08:40: Ammonia 13.0 Micro: Microbiology 12/02/23 11:38 Blood Culture (Wb) - Anticubital Left Blood Culture - Preliminary No growth in 48 hours. 12/02/23 10:27 Urine, Catheterized Urine Culture - Final Culture exhibits no growth. 12/02/23 07:37 Mucosa - Nose SARS-CoV-2, Influenza & RSV (PCR) - Final ABG Data ABG results: ABG 12/03/23 21:15 Specimen Type ART Sample Site L Radial pH 7.40 Bicarbonate Actual 21.5 L Total CO2 23 Base Excess -3 L O2 Saturation 97 O2 % 1.0 ABG pCO2 34.8 L ABG pO2 93 Kaye Test Positive O2 Delivery Device Cannula Vent Mode Not entered Radiography Diagnostic Testing: Radiology Impression Head/Neck CTA 12/03/23 21:10 IMPRESSION: CTA neck: Patent graft between the cephalad aspect of the bilateral common carotid artery. Mild atherosclerotic disease of the left carotid bulb and proximal left internal carotid artery. No significant stenosis, occlusion or dissection involving the bilateral carotid and vertebral arteries. CTA brain: No intracranial significant stenosis, occlusion or aneurysm. Electronically Signed: Charmaine Grant MD at 22:18 EST , KUB X-Ray 12/04/23 18:13 IMPRESSION: Nasogastric tube coiled in the midline with tip likely in the fundus of the stomach. No bowel obstruction. Electronically Signed: Elijah Pollack MD at 18:30 EST , Rhythm Strip Rhythm Strip: Sinus Rhythm Rate: 55 Ectopy: None Physical Exam Narrative -?NEURO: -? Mental Status: oriented to situation, time, and place. Intermittentlyappears confused -? Language: speech is slightly dysarthric.? Naming, repetition, fluency, and comprehension intact. -? Cranial Nerves: eomi, R pupil >L pupil, R pupil poorly reactive. R nasolabial fold flattening UE with R arm drift, LE with R leg drift. Pt with tremors b/l and then she will jerk her head to the L and be midline again. There are no myoclonic movements, the is no post-ictal phase noted 12/04/232243 <Electronically signed by Kiley Carpenter MD> Cosigner Signature (if applicable): CC: ~ Signed [facility] Work Phone: [phone]) [phone] Consult note Author Jorge Hurtado [facility] December 04, 2023 2:14pm Note Date/Time December 04, 2023 7 :20am [facility] Medical Records Department [address] [place] [address] Consultation - Motion Picture Camera Lens Technician 12/04/23 0715 MR#: [id number] Acct: [id number] Name: ANGÉLICA YO Rep #:[id number] 6 : 1955 68 From: Jorge Hurtado DO PCP: Dr. Daron Benton MD Status:ADM IN Location: ICU ICU02-1 Assessment & Plan Assessment/Plan (1) Weakness: PLAN: Plan RECOMMENDATIONS: 1. Continue high-dose steroids per neurology. 2. Obtain MRI brain. 3. Transition from ceftriaxone to Unasyn over concerns for aspiration. 4. Await results of EEG. 5. Maintain n.p.o. status for now. IMPRESSIONS: 1. Progressive weakness and encephalopathy Clinical concern for underlying MS flare. Low suspicion for underlying urinary tract source of infection. The patient was initiated on high-dose steroids by neurology. CT imaging of the head has not provided any additional insight thus far. There are tentative plans for MRI brain today. Liver function, ammonia and TSH are within normal limits. Given the reported concerns for potential aspiration event, we will transition the patient to Unasyn. Plan to continue current supportive care. At the present time, the patient is protecting her airway. 2. History of paroxysmal atrial fibrillation/hypothyroidism/peripheral vasculardisease/psoriatic arthritis Complicates care, management, recovery and prognosis. Continue current supportive care as noted above. This note was generated with [employer] software. It may contain incorrectwords, spelling, and punctuation that were not noted in checking the note beforesigning. HPI Consult Data Date of Consult: 12/04/23 HPI Narrative Reason for Consultation: Mental status change HPI Narrative: The patient is a 68-year-old female, with a history as outlined below, who presented to the emergency department via EMS on December 02 with generalized weakness and dizziness. The patient has a known history of MS, coronary artery disease, atrial fibrillation, carotid artery stenosis, prior brain aneurysm and psoriatic arthritis. On presentation to the emergency department, the patient was noted to be afebrile but was notably hypertensive with a blood pressure of 201/91 mmHg. Shewas maintaining appropriate oxygen saturations on room air. Laboratory evaluation revealed no evidence of a leukocytosis. Chemistry profile was notable for a creatinine of 1.13. Glucose was normal at 109. Urine analysis was unremarkable. The patient did have a positive influenza screen on November 15. Initial CT head was unrevealing for any acute intracranial abnormality. Neurology consultation was obtained with medical history concerning for potential MS exacerbation. An MRI brain was ordered and the patient was initiated on 1 g of IV steroids for 3 days. She was maintained on her home baclofen 20 mg every 6 hours. The patient is also being maintained on Eliquis, Plavix, Neurontin and antimicrobials. [facility] Medical History Angina pectoris Bilateral carotid artery stenosis Chronic pain syndrome Coronary artery disease Essential (primary) hypertension Fatty liver GERD (gastroesophageal reflux disease) Goiter History of transient ischemic attack (TIA) HLD (hyperlipidemia) Hypothyroidism Influenza A Multiple sclerosis Nonobstructive atherosclerosis of coronary artery Nonsustained paroxysmal supraventricular tachycardia Osteoarthritis Osteoporosis Peripheral vascular occlusive disease Psoriasis Psoriatic arthritis Smoker Thrombocytopenia TIA (transient ischemic attack) Home Medications cholecalciferol (vitamin D3) 125 mcg (5,000 unit) tablet 5,000 unit PO DAILY supplement 12/16/13 [History Last Taken 12/01/23] gabapentin 800 mg tablet 800 mg PO TID MS 07/16/18 [History Last Taken 12/01/23] baclofen 20 mg tablet 20 mg PO Q8H MS 08/11/21 [History Last Taken 12/01/23] levothyroxine 50 mcg tablet 50 mcg PO DAILY thyroid 08/11/21 [History Last Taken 12/01/23] oxycodone 10 mg tablet 10 mg PO Q6H PRN pain 05/24/23 [History Last Taken 12/01/23] clopidogrel 75 mg tablet 75 mg PO DAILY dose increased, pt is OUT of med, pleasefill #90 TABLETS 06/01/23 [Rx Last Taken 11/18/23] lisinopril 5 mg tablet 5 mg PO DAILY blood pressure #30 tabs 11/02/23 [Rx Last Taken 12/01/23] dextromethorphan-guaifenesin ER 60 mg-1,200 mg tab,extend release,12hr (Mucinex DM) 1 tab PO Q12H cough/congest 7 days #14 tabs 11/16/23 [Rx Last Taken 12/01/23] apixaban 5 mg tablet (Eliquis) 5 mg PO BID 30 days #60 tabs 11/21/23 [Rx Last Taken 12/01/23] metoprolol tartrate 25 mg tablet 12.5 mg (1/2 x 25 mg) PO BID 30 days #30 tabs 11/21/23 [Rx Last Taken 12/01/23] Allergy/AdvReac Type Severity Reaction Status Date / Time colestipol [From Colestid] Allergy Mild unknown Verified 11/26/23 12:47 pregabalin [From Lyrica] Allergy Mild Hives Verified 11/26/23 12:47 amitriptyline Allergy Rash Verified 11/26/23 12:47 temazepam [From Restoril] AdvReac Mild Nausea/Vom/ Verified 11/26/23 12:47 Diarrhea Antihistamines - Alkylamine AdvReac Nausea/Vom/ Verified 11/26/23 12:47 Diarrhea Antihistamines - Ethanolamine AdvReac Nausea/Vom/ Verified 11/26/23 12:47 Diarrhea Antihistamines - AdvReac Nausea/Vom/ Verified 11/26/23 12:47 Ethylenediamine Diarrhea Antihistamines - Piperazine AdvReac Nausea/Vom/ Verified 11/26/23 12:47 Diarrhea Antihistamines - Piperidine AdvReac Nausea/Vom/ Verified 11/26/23 12:47 Diarrhea aspirin AdvReac I'M ON Verified 11/26/23 12:47 BLOOD THINNERS codeine AdvReac Nausea Verified 11/26/23 12:47 Corticosteroids AdvReac Upset Verified 11/26/23 12:47 (Glucocorticoids) Stomach morphine AdvReac Nausea Verified 11/26/23 12:47 Wvdeura-FRH-SnP Reductase AdvReac Nausea Verified 11/26/23 12:47 Inhibitor [Kuxvqkr-Qpx-Lom Reductase Inhibitor] Family History Mother Cancer CAD (coronary artery disease) Brain tumor Grandfather CVA (cerebral vascular accident) Father CAD (coronary artery disease) Ruptured abdominal aortic aneurysm (AAA) Sister Brain aneurysm Surgical History Brain aneurysm Fracture of right lower leg H/O hemorrhoidectomy H/O: History of angioplasty of peripheral vessel History of angioplasty of peripheral vessel (07/11/19) History of appendectomy History of section History of cholecystectomy History of hemorrhoidectomy History of hysterectomy History of left breast biopsy History of left heart catheterization (01/25/15) History of left-sided carotid endarterectomy History of partial thyroidectomy (11/30/05) History of right-sided carotid endarterectomy S/P coil embolization of cerebral aneurysm S/P hysterectomy S/P insertion of iliac artery stent S/P thyroidectomy Stenosis of left subclavian artery Social History household members: none Smoking Status: Current every day smoker tobacco type: cigarettes alcohol intake: never caffeine: Yes Type: coffee and tea ROS Review of Systems ROS Unobtainable: due to mental status Physical Exam Const alert Constitutional Narrative: Audibly moaning with incomprehensible language HEENT normocephalic and head/scalp atraumatic Eyes conjunctivae normal Neck supple General: trachea midline Chest inspection of chest normal Resp normal respiratory effort Effort and Inspection: tachypneic Auscultation: diminished lung sounds Cardio regular rate and regular rhythm GI normal to inspection, nondistended, normoactive bowel sounds Extremity no clubbing, cyanosis or edema Skin no rashes or lesions noted Neuro Neuro Narrative: The patient is moving her extremities spontaneously but will not engage in conversation or answer questions. Psych Activity / Motor Behavior: restless Lab / Micro Data 12/04/23 04:25 12/04/23 04:25 Labs: Laboratory Results - last 24 hr 12/03/23 05:40: Differential Comment SCANNED 12/03/23 07:58: POC Glucose 175 H 12/04/23 04:25: WBC 13.0 H, RBC 3.74 L, Hgb 10.7 L, Hct 33.2 L, MCV 88.8, MCH 28.6, MCHC 32.2, RDW Std Deviation 51.7 H, RDW Coeff of David 16.0 H, Plt Count 379, MPV 9.4, Immature Gran % (Auto) 0.800, Neut % (Auto) 91.9 H, Lymph % (Auto)4.1 L, [place] % (Auto) 3.1, Eos % (Auto) 0.0, Baso % (Auto) 0.1, Absolute Neuts (auto) 12.0 H, Absolute Lymphs (auto) 0.54 L, Nucleated RBC % 0, Differential Comment SCANNED, Sodium 143, Potassium 4.4, Chloride 112 H, Carbon Dioxide 21.0,Anion Gap 10, BUN 22 H, Creatinine 1.22 H, Estim Creat Clear Calc 38.47, Est GFR(MDRD) Af Amer 56 L, Est GFR (MDRD) Non-Af 46 L, BUN/Creatinine Ratio 18.0, Glucose 160 H, Calcium 8.8 Micro: Microbiology 12/02/23 10:27 Urine, Catheterized Urine Culture - Preliminary Culture exhibits no growth. ABG Data ABG results: ABG 12/03/23 12/03/23 14:58 21:15 Specimen Type ART ART Sample Site L Radial L Radial pH 7.43 7.40 Bicarbonate Actual 21.6 L 21.5 L Total CO2 23 23 Base Excess -3 L -3 L O2 Saturation 95 97 O2 % 5.0 1.0 ABG pCO2 32.5 L 34.8 L ABG pO2 73 L 93 Kaye Test Positive Positive O2 Delivery Device Cannula Cannula Vent Mode Not entered Not entered Rhythm Strip Rhythm Strip: Sinus Rhythm Rate: 55 Ectopy: None Imagaing Radiology Impression Brain CT 12/03/23 08:01 IMPRESSION: Chronic involutional changes of the brain. Stable examination. N.B. : The above Results were Read Back by Jovon Freitas MD to Sachin Murillo MD, and understanding confirmed on 12/03/2023 08:25:43 (ET). Electronically Signed: Jovon Freitas MD at 8:27 EST , ADDENDUM: 12/03/23 0833 IMPRESSION: Chronic involutional changes of the brain. Stable examination. N.B. : The above Results were Read Back by Jovon Freitas MD to Sachin Murillo MD, and understanding confirmed on 12/03/2023 08:25:43 (ET). Electronically Signed: Jovon Freitas MD at 8:27 EST , Chest X-Ray 12/03/23 14:35 IMPRESSION: Minimal residual increased markings at the right lung base. No other abnormality is seen. Electronically Signed: Jovon Freitas MD at 14:59 EST , Head/Neck CTA 12/03/23 21:10 IMPRESSION: CTA neck: Patent graft between the cephalad aspect of the bilateral common carotid artery. Mild atherosclerotic disease of the left carotid bulb and proximal left internal carotid artery. No significant stenosis, occlusion or dissection involving the bilateral carotid and vertebral arteries. CTA brain: No intracranial significant stenosis, occlusion or aneurysm. Electronically Signed: Charmaine Grant MD at 22:18 EST , Capacity Legal Python Engineer Reflex Medical hold order details:: IF a medical hold is selected below, a suggested order for a MEDICAL HOLD will reflex upon signing the document. Next of kin: [place] law dictates a PRIORITY LIST for identifying legal decision-maker/legal next of kin in the following order (LNOK): 1st: The patient?s legal guardian, if any 2nd: The patient's spouse (if status is questionable, consult Risk Management) 3rd: The patient?s adult child(blaine) (majority, if multiple children) 4th: The patient?s parents 5th: The patient?s adult siblings (majority, if multiple children siblings) Charges/Coding Visit Charges Inpatient E&M: 44541 Init Hosp L3 12/04/23 1414 <Electronically signed by Jorge Hurtado DO> Cosigner Signature (if applicable): CC: Jo Ann Krishnamurthy; Ruby Wynn; Rima Riggins; Michele Crawley; Kiley Carpenter MD;Angie Shields MD; Kt Friend MD; Deepika Graham MD; Dr. Lyle Mena MD; Dr. Daniel Edmonds MD; Dr. Isaias Scherer MD; Dr. Roman Mckeon MD; Dr. Johnny Sepulveda MD; Dr. Jorge Hurtado DO; Dr. Daron Benton MD; Dr. Brandon Gaming MD;Dr. Nikole Allison MD; Dr. Kristopher Hernández MD; Dr. Gerald Suh MD; Dr. Anita Amezcua MD; Dr. Pamela Pan MD; Dr. Silvino Schmidt DO; Dr. Simon Tellez MD;Dr. Sarkis Brown MD; Dr. Go Alejo MD; Dr. Kirsten Azevedo MD; Dr. Jesus Alfonso MD; Dr. Joseph Desai MD; Dr. Kehinde Inman MD; Dr. Samina Mortensen MD; Dr. Mendez Oviedo MD; Phil Terry MD; Maurilio Garland MD; Arleen Estrada DO; Jose Santos MD; Rhiannon Farris DO; Keyona Davidson MD~ Signed [facility] Work Phone: [phone] [phone] Progress note Author Sachin Murillo [facility] December 04, 2023 9:58am Note Date/Time December 04, 2023 9 :58am [facility] Medical Records Department [address] [place] [address] Progress Note - Hospitalist 12/04/23 0953 MR#: [id number] Acct: [id number] Name: ANGÉLICA YO Rep #:[id number] : 1955 68 From: Sachin chan MD PCP: Dr. Daron Benton MD Status:ADM IN Location: ICU ICU02-1 Subjective Subjective Was transferred to the ICU overnight no major changes from baseline from yesterday while in PCU. Unsure as to the etiology of her encephalopathy, nurse reports today that while suctioning her she woke up and was alert and oriented x3 but then as soon as suctioning was done went back to the groaning and gurgling Objective Data Objective Data Vital Signs: Vital Signs Temp Pulse Resp BP Pulse Ox O2 Del Method O2 Flow Rate 96.5 F L 79 19 H 178/83 H 98 Room Air 1 12/04/23 09:00 12/04/23 09:00 12/04/23 09:00 12/04/23 09:00 12/04/23 09:00 12/04/23 09:00 12/04/23 07:00 Oxygen Flow Rate (L/min) 1 Oxygen Delivery Method Room Air Weight: 123 lb 7.342 oz Body Mass Index (BMI) 20.5 Intake & Output: Intake and Output for Last 24 Hours 12/03/23 12/04/23 12/05/23 03:59 03:59 03:59 Intake Total 1406 / 1406 1166 / 1166 Balance 1406 / 1406 1166 / 1166 Lab / Micro Data 12/04/23 04:25 12/04/23 04:25 Labs: Laboratory Results - last 24 hr 12/04/23 04:25: WBC 13.0 H, RBC 3.74 L, Hgb 10.7 L, Hct 33.2 L, MCV 88.8, MCH 28.6, MCHC 32.2, RDW Std Deviation 51.7 H, RDW Coeff of David 16.0 H, Plt Count 379, MPV 9.4, Immature Gran % (Auto) 0.800, Neut % (Auto) 91.9 H, Lymph % (Auto)4.1 L, Mes[place] % (Auto) 3.1, Eos % (Auto) 0.0, Baso % (Auto) 0.1, Absolute Neuts (auto) 12.0 H, Absolute Lymphs (auto) 0.54 L, Nucleated RBC % 0, Differential Comment SCANNED, Sodium 143, Potassium 4.4, Chloride 112 H, Carbon Dioxide 21.0,Anion Gap 10, BUN 22 H, Creatinine 1.22 H, Estim Creat Clear Calc 38.47, Est GFR(MDRD) Af Amer 56 L, Est GFR (MDRD) Non-Af 46 L, BUN/Creatinine Ratio 18.0, Glucose 160 H, Calcium 8.8, Total Bilirubin 0.20, Direct Bilirubin 0.11, AST 17,ALT 15, Alkaline Phosphatase 127 H, Total Protein 6.4, Albumin 2.7 L, Globulin 3.7, TSH 1.65 12/04/23 08:40: Ammonia 13.0 Micro: Microbiology 12/02/23 11:38 Blood Culture (Wb) - Anticubital Left Blood Culture - Preliminary No growth in 48 hours. 12/02/23 10:27 Urine, Catheterized Urine Culture - Final Culture exhibits no growth. 12/02/23 07:37 Mucosa - Nose SARS-CoV-2, Influenza & RSV (PCR) - Final ABG Data ABG results: ABG 12/03/23 12/03/23 14:58 21:15 Specimen Type ART ART Sample Site L Radial L Radial pH 7.43 7.40 Bicarbonate Actual 21.6 L 21.5 L Total CO2 23 23 Base Excess -3 L -3 L O2 Saturation 95 97 O2 % 5.0 1.0 ABG pCO2 32.5 L 34.8 L ABG pO2 73 L 93 Kaye Test Positive Positive O2 Delivery Device Cannula Cannula Vent Mode Not entered Not entered Radiography Diagnostic Testing: Radiology Impression Chest X-Ray 12/03/23 14:35 IMPRESSION: Minimal residual increased markings at the right lung base. No other abnormality is seen. Electronically Signed: Jovon Freitas MD at 14:59 EST , Head/Neck CTA 12/03/23 21:10 IMPRESSION: CTA neck: Patent graft between the cephalad aspect of the bilateral common carotid artery. Mild atherosclerotic disease of the left carotid bulb and proximal left internal carotid artery. No significant stenosis, occlusion or dissection involving the bilateral carotid and vertebral arteries. CTA brain: No intracranial significant stenosis, occlusion or aneurysm. Electronically Signed: Charmaine Grant MD at 22:18 EST , Rhythm Strip Rhythm Strip: Sinus Rhythm Rate: 55 Ectopy: None Physical Exam Narrative General: Drowsy but alert, does not communicate and follows commands intermittently HEENT: Atraumatic, PERRLA, EOMI, Normocephalic Oral: Moist Mucosa Neck: Supple, No JVD Lungs: Diminished, Normal air movement, No rhonchi, No wheeze, No rales Cardiovascular: Regular rate, Regular Rhythm, Normal S1, Normal S2, No murmurs Abdomen: Soft, Non Tender, Non-Distended, No Hepato-splenomegaly Extremities: No edema, Capillary Refill Less than 3 Seconds Skin: No rashes, No breakdown Musculoskeletal: No Tenderness to Palpation of Joints or Extremities Neurological: Moves all extremities, possible left facial droop, encephalopathicdoes not follow commands Psych/Mental Status: Flat Assessment & Plan Assessment/Plan (1) Weakness: PLAN: Plan 1. Progressive generalized weakness in the setting of MS with hypertensive urgency/aspiration pneumonia ? Differential diagnoses include patient possible cystitis versus MS flareup. Plan is to treat the underlying suspected cystitis and if no improvement patientto be initiated on steroids consult subsequently placed to teleneurology 12/03/2023: Stroke alert was called for change though it is unclear as to what her baseline has been since admission with a UTI and generalized weakness will attempt to get an MRI without contrast to evaluate for possible stroke in the meantime she is significantly hypertensive and she was given a dose of labetalolin the CT scanner this will be made every 4 as needed as well as the hydralazineshe has on board currently receiving 1 g of Solu-Medrol daily per recommendations neurology 12/04/2023: Given her behaviors may need to be intubated for an MRI will await neurology evaluation of her this afternoon. Blood cultures and urine cultures are negative. She did have an aspiration event yesterday when she went for the MRI where she laid flat she has a white count today that is likely related to her 1 g of Solu-Medrol daily however given her aspiration event yesterday she was started on Unasyn. EEG is pending. She had a CTA of the head and neck overnight which is unremarkable 2. Paroxysmal A-fib ? Rate controlled on systemic anticoagulation with apixaban continue 3. Essential hypertension ? Patient blood pressure control not optimal due to continuing home meds added hydralazine as needed. Blood pressure greater than 160 12/03/2023: Have to broaden her blood pressure medications to try to get better control unclear if she is consistently taking her medications at home 7. Tobacco dependence - Counseled on cessation, offered nicotine patch for tobacco cravings 8. Hypothyroidism - Patient is on levothyroxine home dose continued 9. Peripheral arterial disease ? With history of iliac stent As well as bilateral carotid endarterectomy. Patient is on antiplatelet therapy 10. Psoriatic arthritis ? Patient not on any DMARDs, will continue with pain meds as needed DVT: Eliquis Capacity Legal Python Engineer Reflex Medical hold order details:: IF a medical hold is selected below, a suggested order for a MEDICAL HOLD will reflex upon signing the document. Next of kin: [place] law dictates a PRIORITY LIST for identifying legal decision-maker/legal next of kin in the following order (LNOK): 1st: The patient?s legal guardian, if any 2nd: The patient's spouse (if status is questionable, consult Risk Management) 3rd: The patient?s adult child(blaine) (majority, if multiple children) 4th: The patient?s parents 5th: The patient?s adult siblings (majority, if multiple children siblings) Charges/Coding Visit Charges Inpatient E&M: 51090 Subs Hosp L2 12/04/23 0958 <Electronically signed by Sachin Murillo MD> Cosigner Signature (if applicable): CC: ~ Signed [facility] Work Phone: [phone]) 319-288701-16-2024 Progress note Author Roman Hewitt [facility] December 04, 2023 12:19am Note Date/Time December 03, 2023 8 :22pm [facility] Medical Records Department [address] [place] [address] Progress Note - Hospitalist 12/03/232018 MR#: [id number] Acct: [id number] Name: CHRISTINANGÉLICA SNOW Rep #:[id number] : 1955 68 From: Roman Ortega DO PCP: Dr. Daron Benton MD Status:ADM IN Location: ICU ICU02-1 Hospitalist Note During my pre-rounds prior to 7 PM I visited the PCU was informed this patient had aspirated earlier in the day along with persistent altered mental status. An MRI was unable to be obtained due to her respiratory status as they were worried that she may have a second aspiration event. An order was made for patient to have an ABG checked and for them to call me with the results. Unfortunately, this ABG was unable to be done but I was called to say the patient had persistent altered mental status and was not protecting her airway. The patient was noted to have stable vital signs and her atrial fibrillation with rapid ventricular response present earlier in the day had resolved as of this time. I patiently spoke to the MED[employer]INAL [employer] P[employer]ER and informed her to send the patient to the ICU. I also spoke to the patient's son/POA at the bedside and he informed me that if she required intubation he would like it to be done and that she is a full code. The plan was for her to undergo MRI in [place]. if it was possible to obtain. Now we will give Zofran 4 mg IV once followed by Versed 2 mg IV once with a STATCTA of the head and neck with stroke protocol to be done this evening EMBER. Results of CTA noted below negative for acute pathologic changes. Patient's sonwas updated with results. RUN DATE: 12/03/[address] [facility], DEPARTMENT OF LABORATORIES PAGE 1 RUN TIME: 2038 Specimen Inquiry [address] [place], [address] PATIENT: ANGÉLICA YO LOC: ICU U #: [id number] : 1955 AGE/SX: 68/F FACILITY: [facility] ROOM: ICU02 RE12/02/[address]: Dr. Sachin Murillo STATUS:ADM IN ED: 1 DIS: ~ SPEC #: [id number] LIZBET: 12/03/23 STATUS: COMP REQ #: [id number] RECD: 12/03/23-[address]: Dr. Sachin Murillo MD ENTERED: 12/03/23-[address]: Kt Friend MD, Angie Perales MD, Allison Alicia Zha, MD Dr. Deepak Gulati, MD Dr. David Kittoe, MD Dr. Eric Smith, MD Dr. Hera Kamdar, MD Dr. Jan Bittar, MD Dr. James Burke, MD Margaret Beigel, DO Dr. Matthew Gusler, DO Mian, Maryam Dr. Mohamed Ridha, MD Dr. Mhd Ezzat Zaghlouleh, MD Robison, Peter Dr. Rami Ibrahim, MD Dr. Sushil Lakhani, MD Dr. Vivien Lee, MD Hannawi, Yousef MD ~ Test Result Flag Adult ReferenceRange IBG Blood Gas Type ART SITE L Radial KAYE TEST Positive Mode Not entered O2 Delivery Dev Cannula FI02 5.0 pH 7.43 7.35-7.45 pCO2 32.5 L 35-45 mmHg PO2 73 L 75-100 mmHG HCO3 21.6 L 22-26 mmol/L BE -3 L -2 to +2 mmol/L TOTAL CO2 23 mmol/L SO2 95 95-99 % [facility] Imaging Services [address] [place] [id number] CTA Head AND Neck W/ Contrast MR#: [id number] Acct: [id number] Name: ANGÉLICA YO Rep #: [id number] : 1955 F 68 From: Charmaine Grant MD PCP: Dr. Daron Benton MD Status: ADM IN Study: CTA Head AND Neck W/ Contrast Date of Exam: 12/03/23 Exam# [id number] Ordering Dr: Roman Miller DO STUDY: CTA HEAD AND NECK WITH CONTRAST REASON FOR EXAM: Female, 68 years old. mental status change RADIATION DOSAGE (If Supplied By Facility): CTDIvol = ( 27.03 ) mGy, DLP = ( 1263.35 ) mGycm TECHNIQUE: CT angiography was performed with a multi-detector CT scanner. Data acquisition was obtained from the skull base through the vertex following intravenous administration of IV 100mL Isovue-370. MIP images were reconstructed from the axial data set. Post-processing of the angiographic images was performed, with multiplanar reformation and 3D reconstruction. Individualized dose optimization techniques were used for this CT. COMPARISON: 11/27/2023. FINDINGS: Normal bilateral petrous carotid arteries. There is calcified plaque formation of the right cavernous carotid artery, without a cross-sectional luminal stenosis. There is calcified plaque formation of the left cavernous carotid artery, without a cross-sectional luminal stenosis. Normal visualized right A1 segments of the anterior cerebral artery, otherwise partially obscured due to streaky artifact. Normal left A1 segments of the anterior cerebral artery. Streaky artifact from embolization coils at the anterior communicating artery suggestive of aneurysmal repair. Normal bilateral A2 segments of the anterior cerebral arteries. Normal right M1 and M2 segments of the middle cerebral arteries, with a normal M1 bifurcation. Normal left M1 and M2 segments of the middle cerebral arteries, with a normal M1 bifurcation. Normal right posterior communicating artery (PCOM). Normal left posterior communicating artery (PCOM). Normal bilateral vertebral arteries. Normal basilar artery with a normal basilar bifurcation. The visualized bilateral superior cerebellar (SCA) arteries are normal. Normal bilateral P1, P2 and visualized P3 segments of the posterior cerebral arteries. There is no demonstrated aneurysm of the [place]. There is no demonstrated abnormality of the visualized brain. AORTIC ARCH: There is atherosclerotic calcific plaque formation of the aortic arch and great vessels arising from the aortic arch, without a hemodynamically significant stenosis. There is a bovine origin of the great vessels with a common origin of the brachiocephalic and left common carotid artery. Normal origin of the left subclavian artery. RIGHT CAROTID ARTERIES: There is mild atherosclerotic plaque formation of the distal common carotid artery, but without a hemodynamically significant stenosis. There is mild atherosclerotic plaque formation with minimal narrowing of the right carotid bulb. There is a bypass from the distal right common carotid artery to the distal left common carotid artery with normal opacification, well-preserved patency. Normal origin of the right internal carotid (ICA) artery without a hemodynamically significant stenosis. Normal visualized cervical portion of the right internal carotid artery. Normal origin of the right external carotid artery (ECA). LEFT CAROTID ARTERIES: Normal left common carotid artery (CCA). There is mild atherosclerotic plaque formation with minimal narrowing of the left carotid bulb. There is mild atherosclerotic plaque formation of the origin of the left internal carotid artery with less than 50% cross sectional diameter stenosis. Normal visualized cervical portion of the left internal carotid artery. Normal origin of the left external carotid artery (ECA). VERTEBRAL ARTERIES: There is enhancement within the bilateral vertebral arteries with a small right vertebral artery, and a dominant left vertebral artery. CT/CTA Head AND Neck W/ Contrast IMPRESSION: CTA neck: Patent graft between the cephalad aspect of the bilateral common carotid artery. Mild atherosclerotic disease of the left carotid bulb and proximal left internal carotid artery. No significant stenosis, occlusion or dissection involving the bilateral carotid and vertebral arteries. CTA brain: No intracranial significant stenosis, occlusion or aneurysm. Electronically Signed: Charmaine Grant MD at 22:[address] [facility] , CC: Dr. Roman Miller DO; Dr. Daron Benton MD ~ Dispatch Coordinator: Signed 12/04/23 0019 <Electronically signed by Roman Miller DO> Cosigner Signature (if applicable): CC: ~ Signed [facility] Work Phone: [phone] Progress note Author Sachin Murillo [facility] December 03, 2023 2:31pm Note Date/Time December 03, 2023 2 :22pm [facility] Medical Records Department [address] [place] [address] Progress Note - Hospitalist 12/03/23 1419 MR#: [id number] Acct: [id number] Name: ANGÉLICA YO Rep #:[id number] : 1955 68 From: Sachin chan MD PCP: Dr. Daron Benton MD Status:ADM IN Location: [place] [address] Subjective Subjective She was a stroke alert this morning secondary to a possible left facial droop and left upper extremity weakness with confusion and repetitive speech CT of thebrain was negative for bleed MRI is pending she does have a history of MS and iscurrently here for pseudo flare in the setting of cystitis which could also cause these findings that led to the stroke alert. She then had a rapid response called because of what appeared to be a swollen tongue and swollen lip however she remains 100% on room air so unlikely to have any allergic reaction as she is not taking anything that she is allergic to Objective Data Objective Data Vital Signs: Vital Signs Temp Pulse Resp BP Pulse Ox O2 Del Method 98 F 110 H 18 161/95 H 99 Room Air 12/03/23 13:33 12/03/23 13:33 12/03/23 13:33 12/03/23 13:33 12/03/23 13:33 12/03/23 13:33 Oxygen Delivery Method Room Air Weight: 123 lb 7.342 oz Body Mass Index (BMI) 20.5 Intake & Output: Intake and Output for Last 24 Hours 12/02/23 12/03/23 12/04/23 03:59 03:59 03:59 Intake Total 1406 / 1406 1050 / 1050 Balance 1406 / 1406 1050 / 1050 Lab / Micro Data 12/03/23 05:40 12/03/23 05:40 Labs: Laboratory Results - last 24 hr 12/03/23 05:40: WBC 4.7, RBC 3.79 L, Hgb 11.3 L, Hct 35.3 L, MCV 93.1, MCH 29.8,MCHC 32.0, RDW Std Deviation 53.4 H, RDW Coeff of David 15.6 H, Plt Count 257, MPV9.3, Immature Gran % (Auto) 0.400, Neut % (Auto) 88.4 H, Lymph % (Auto) 10.2 L, Mesa % (Auto) 0.8, Eos % (Auto) 0.0, Baso % (Auto) 0.2, Absolute Neuts (auto) 4.2, Absolute Lymphs (auto) 0.48 L, Nucleated RBC % 0, Differential Comment SCANNED, Sodium 139, Potassium 5.0, Chloride 110 H, Carbon Dioxide 23.0, Anion Gap 6, BUN 24 H, Creatinine 1.29 H, Estim Creat Clear Calc 36.39, Est GFR (MDRD)Af Amer 53 L, Est GFR (MDRD) Non-Af 44 L, BUN/Creatinine Ratio 18.6, Glucose 198H, Calcium 8.3 L, Phosphorus 3.0, Magnesium 2.6 12/03/23 07:58: POC Glucose 175 H Micro: Microbiology 12/02/23 10:27 Urine, Catheterized Urine Culture - Preliminary Culture exhibits no growth. 12/02/23 07:37 Mucosa - Nose SARS-CoV-2, Influenza & RSV (PCR) - Final Radiography Diagnostic Testing: Radiology Impression Brain CT 12/03/23 08:01 IMPRESSION: Chronic involutional changes of the brain. Stable examination. N.B. : The above Results were Read Back by Jovon Freitas MD to Sachin Murillo MD, and understanding confirmed on 12/03/2023 08:25:43 (ET). Electronically Signed: Jovon Freitas MD at 8:27 EST , ADDENDUM: 12/03/23 0833 IMPRESSION: Chronic involutional changes of the brain. Stable examination. N.B. : The above Results were Read Back by Jovon Freitas MD to Sachin Murillo MD, and understanding confirmed on 12/03/2023 08:25:43 (ET). Electronically Signed: Jovon Freitas MD at 8:27 EST , Rhythm Strip Rhythm Strip: Sinus Rhythm Rate: 55 Ectopy: None Physical Exam Narrative General: Drowsy but alert, does not communicate and follows commands intermittently HEENT: Atraumatic, PERRLA, EOMI, Normocephalic Oral: Moist Mucosa Neck: Supple, No JVD Lungs: Diminished, Normal air movement, No rhonchi, No wheeze, No rales Cardiovascular: Regular rate, Regular Rhythm, Normal S1, Normal S2, No murmurs Abdomen: Soft, Non Tender, Non-Distended, No Hepato-splenomegaly Extremities: No edema, Capillary Refill Less than 3 Seconds Skin: No rashes, No breakdown Musculoskeletal: No Tenderness to Palpation of Joints or Extremities Neurological: Moves all extremities, possible left facial droop, encephalopathicdoes not follow commands Psych/Mental Status: Flat Assessment & Plan Assessment/Plan (1) Weakness: PLAN: Plan 1. Progressive generalized weakness due to UTI in the setting of MS with hypertensive urgency ? Differential diagnoses include patient possible cystitis versus MS flareup. Plan is to treat the underlying suspected cystitis and if no improvement patientto be initiated on steroids consult subsequently placed to teleneurology 12/03/2023: Stroke alert was called for change though it is unclear as to what her baseline has been since admission with a UTI and generalized weakness will attempt to get an MRI without contrast to evaluate for possible stroke in the meantime she is significantly hypertensive and she was given a dose of labetalolin the CT scanner this will be made every 4 as needed as well as the hydralazineshe has on board currently receiving 1 g of Solu-Medrol daily per recommendations neurology 2. Paroxysmal A-fib ? Rate controlled on systemic anticoagulation with apixaban continue 3. Essential hypertension ? Patient blood pressure control not optimal due to continuing home meds added hydralazine as needed. Blood pressure greater than 160 12/03/2023: Have to broaden her blood pressure medications to try to get better control unclear if she is consistently taking her medications at home 7. Tobacco dependence - Counseled on cessation, offered nicotine patch for tobacco cravings 8. Hypothyroidism - Patient is on levothyroxine home dose continued 9. Peripheral arterial disease ? With history of iliac stent As well as bilateral carotid endarterectomy. Patient is on antiplatelet therapy 10. Psoriatic arthritis ? Patient not on any DMARDs, will continue with pain meds as needed DVT: Eliquis Capacity Legal Python Engineer Reflex Medical hold order details:: IF a medical hold is selected below, a suggested order for a MEDICAL HOLD will reflex upon signing the document. Next of kin: [place] law dictates a PRIORITY LIST for identifying legal decision-maker/legal next of kin in the following order (LNOK): 1st: The patient?s legal guardian, if any 2nd: The patient's spouse (if status is questionable, consult Risk Management) 3rd: The patient?s adult child(blaine) (majority, if multiple children) 4th: The patient?s parents 5th: The patient?s adult siblings (majority, if multiple children siblings) Charges/Coding Visit Charges Inpatient E&M: 50631 Subs Hosp L2 12/03/23 1431 <Electronically signed by Sachin Murillo MD> Cosigner Signature (if applicable): CC: ~ Signed [facility] Work Phone: [phone] Consult note Author Kiley Carpenter [facility] December 02, 2023 2:51pm Note Date/Time December 02, 2023 2 :05pm [facility] Medical Records Department [address] [place] [address] Consultation - Neurology 12/02/23 1403 MR#: [id number] Acct: [id number] Name: ANGÉLICA YO Rep #:[id number] : 1955 68 From: Kiley Carpenter MD PCP: Dr. Daron Benton MD Status:ADM IN Location: [place] [address] Assessment and Plan: Neuro Assessment/Plan ANGÉLICA YO is a 68 F with a past medical history of MS, being evaluated by Teleneurology for possible MS exacerbation. Symptoms do seem in line with possible exacerbation vs pseudoexacerbation. Given symptoms started several daysafter getting the flu and when she was improving, believe she is likely does have some exacerbation. Will treat empirically, but also obtain MRI to eval the disease progression and any new lesions. If there are new and active demyelinating lesions then would need to increase duration of steroids and continue monitoring in order to assess improvement. Plan: - MRI Brain and Orbit w/wo contrast - methylprednisolone 1000mg x3 days - continue home baclofen 20mg q6 hrs I personally attended this patient and spent a total time of 45 minutes evaluating this patient including clinical assessment, review of chart, medical history imaging, and determining appropriate treatment and workup. HPI Consult Data Date of Consult: 12/02/23 HPI Narrative HPI Narrative: Patient is 68-year-old female with history of multiple sclerosis, psoriatic arthritis, coronary artery disease, atrial fibrillation (not currently on any anticoagulation secondary to GI upset), bilateral carotid artery stenosis with bilateral CEA as well as brain aneurysm status post coiling in 2014 presenting with weakness and dizziness. Patient is a pretty poor historian and is not forthcoming with what brings her in. It seems like she has been dizzy since yesterday but when asked whether it is more of a lightheaded sensation or room pain sensation she does not answer and just tells me she feels numb all over. She reported to triage nurse that she had headache however she currently denies any acute headache. She denies any focal weakness. She does live home alone. She think she is having an MS flare. She notes that she was diagnosed with pneumonia/influenza a week ago and continues to have a cough. She denies any recent falls, fevers, vomiting or change in bowel habits. Denies any urinary symptoms. Her neurologist is in [place]. ANGÉLICA YO, is a 68 F with past medical history is again for multiple sclerosis, recent hospitalization for acute influenza A infection who presented with generalized weakness. Per patient symptoms have been going on for couple of days. Patient however denied any subjective fever no chills. Presented to the emergency department initial workup including head CT came back unremarkableurinalysis however did demonstrate positive leukocyte esterase. Admitted to a monitored bed for further management Neurologic History: Pt feels dizzy and having vision problems - diplopia. Flare-ups are normally related to increased stiffness and staggering. Will also have vision problems - diplopia. Has poor vision at baseline. Has had increased in difficulty walking but no falls. Normally walks with a rollader. Has had symptoms for last 3 days. Had the flu a week and half ago. Her new neuro symptoms started several days after she started getting over the flu. Has not had an MRI for a while. Last MS exacerbation - has been a long time ago several years ago. Takes baclofen and neurontin currently. Pt has heart problems but has been off medications because they affecting her heart. Has only been on copaxone in the past, last time she took it was a couple years ago. Been relatively stable sinceshe has been off. Pt increased her own baclofen slightly to 2 pills at night since her symptoms started. Pt states she currently takes1 pill q6 hrs Had her aneurysm coiled in 2013. [facility] Medical History Angina pectoris Bilateral carotid artery stenosis Chronic pain syndrome Coronary artery disease Essential (primary) hypertension Fatty liver GERD (gastroesophageal reflux disease) Goiter History of transient ischemic attack (TIA) HLD (hyperlipidemia) Hypothyroidism Influenza A Multiple sclerosis Nonobstructive atherosclerosis of coronary artery Nonsustained paroxysmal supraventricular tachycardia Osteoarthritis Osteoporosis Peripheral vascular occlusive disease Psoriasis Psoriatic arthritis Smoker Thrombocytopenia TIA (transient ischemic attack) Home Medications cholecalciferol (vitamin D3) 125 mcg (5,000 unit) tablet 5,000 unit PO DAILY supplement 12/16/13 [History Last Taken 12/01/23] gabapentin 800 mg tablet 800 mg PO TID MS 07/16/18 [History Last Taken 12/01/23] baclofen 20 mg tablet 20 mg PO Q8H MS 08/11/21 [History Last Taken 12/01/23] levothyroxine 50 mcg tablet 50 mcg PO DAILY thyroid 08/11/21 [History Last Taken 12/01/23] oxycodone 10 mg tablet 10 mg PO Q6H PRN pain 05/24/23 [History Last Taken 12/01/23] clopidogrel 75 mg tablet 75 mg PO DAILY dose increased, pt is OUT of med, pleasefill #90 TABLETS 06/01/23 [Rx Last Taken 11/18/23] lisinopril 5 mg tablet 5 mg PO DAILY blood pressure #30 tabs 11/02/23 [Rx Last Taken 12/01/23] dextromethorphan-guaifenesin ER 60 mg-1,200 mg tab,extend release,12hr (Mucinex DM) 1 tab PO Q12H cough/congest 7 days #14 tabs 11/16/23 [Rx Last Taken 12/01/23] apixaban 5 mg tablet (Eliquis) 5 mg PO BID 30 days #60 tabs 11/21/23 [Rx Last Taken 12/01/23] metoprolol tartrate 25 mg tablet 12.5 mg (1/2 x 25 mg) PO BID 30 days #30 tabs 11/21/23 [Rx Last Taken 12/01/23] Allergy/AdvReac Type Severity Reaction Status Date / Time colestipol [From Colestid] Allergy Mild unknown Verified 11/26/23 12:47 pregabalin [From Lyrica] Allergy Mild Hives Verified 11/26/23 12:47 amitriptyline Allergy Rash Verified 11/26/23 12:47 temazepam [From Restoril] AdvReac Mild Nausea/Vom/ Verified 11/26/23 12:47 Diarrhea Antihistamines - Alkylamine AdvReac Nausea/Vom/ Verified 11/26/23 12:47 Diarrhea Antihistamines - Ethanolamine AdvReac Nausea/Vom/ Verified 11/26/23 12:47 Diarrhea Antihistamines - AdvReac Nausea/Vom/ Verified 11/26/23 12:47 Ethylenediamine Diarrhea Antihistamines - Piperazine AdvReac Nausea/Vom/ Verified 11/26/23 12:47 Diarrhea Antihistamines - Piperidine AdvReac Nausea/Vom/ Verified 11/26/23 12:47 Diarrhea aspirin AdvReac I'M ON Verified 11/26/23 12:47 BLOOD THINNERS codeine AdvReac Nausea Verified 11/26/23 12:47 Corticosteroids AdvReac Upset Verified 11/26/23 12:47 (Glucocorticoids) Stomach morphine AdvReac Nausea Verified 11/26/23 12:47 Jlvxraq-ENN-SjP Reductase AdvReac Nausea Verified 11/26/23 12:47 Inhibitor [Mgfupzt-Iit-Tyh Reductase Inhibitor] Family History Mother Cancer CAD (coronary artery disease) Brain tumor Grandfather CVA (cerebral vascular accident) Father CAD (coronary artery disease) Ruptured abdominal aortic aneurysm (AAA) Sister Brain aneurysm Surgical History Brain aneurysm Fracture of right lower leg H/O hemorrhoidectomy H/O: History of angioplasty of peripheral vessel History of angioplasty of peripheral vessel (07/11/19) History of appendectomy History of section History of cholecystectomy History of hemorrhoidectomy History of hysterectomy History of left breast biopsy History of left heart catheterization (01/25/15) History of left-sided carotid endarterectomy History of partial thyroidectomy (11/30/05) History of right-sided carotid endarterectomy S/P coil embolization of cerebral aneurysm S/P hysterectomy S/P insertion of iliac artery stent S/P thyroidectomy Stenosis of left subclavian artery Social History household members: none Smoking Status: Current every day smoker tobacco type: cigarettes alcohol intake: never caffeine: Yes Type: coffee and tea Vital Signs Vital Signs Vital Signs: 12/02/23 06:30 12/02/23 06:33 12/02/23 06:40 Temperature 97.4 F L 97.6 F L Temperature Source Oral Oral Pulse Rate 63 66 Respiratory Rate 22 H 16 Respiratory Effort Normal Non-Labored Respiratory Pattern Normal Blood Pressure 201/91 H Blood Pressure Mean 127 Blood Pressure Source Blood Pressure Position Blood Pressure Location Pulse Ox 97 93 Oxygen Delivery Method Room Air Room Air 12/02/23 08:13 12/02/23 08:53 12/02/23 10:30 Temperature Temperature Source Pulse Rate 72 53 L 51 L Respiratory Rate 21 H 22 H 19 H Respiratory Effort Respiratory Pattern Blood Pressure 156/74 H 207/82 H 183/93 H Blood Pressure Mean 101 123 123 Blood Pressure Source Blood Pressure Position Blood Pressure Location Pulse Ox 92 97 96 Oxygen Delivery Method Room Air Room Air Room Air 12/02/23 11:40 12/02/23 12:38 12/02/23 12:43 Temperature 98.1 F 98.1 F Temperature Source Oral Oral Pulse Rate 48 L 51 L 51 L Respiratory Rate 15 16 16 Respiratory Effort Respiratory Pattern Blood Pressure 176/48 H 130/77 H 130/77 H Blood Pressure Mean 90 94 94 Blood Pressure Source Monitor Blood Pressure Position Semi-Fowlers Blood Pressure Location Right Arm Pulse Ox 94 98 98 Oxygen Delivery Method Room Air Room Air 12/02/23 13:31 12/02/23 13:38 Temperature Temperature Source Pulse Rate Respiratory Rate Respiratory Effort Respiratory Pattern Blood Pressure Blood Pressure Mean Blood Pressure Source Blood Pressure Position Blood Pressure Location Pulse Ox Oxygen Delivery Method Room Air Room Air Weight Weight: 56 kg Body Mass Index (BMI) 20.5 Physical Exam Narrative -? General: Laying comfortably in bed; in no acute distress. -? HENT: Normal oropharynx and mucosa. Normal external appearance of ears and nose. Exophthalmos. -? Neck: Supple, no pain or tenderness -? CV:? No peripheral edema. -? Pulmonary:? Normal respiratory effort. -? Ext: No cyanosis, edema, or deformity -? Skin: No rash. Normal palpation of skin.? -? Musculoskeletal: full range of motion; no joint tenderness. Normal digits and nails by inspection. No clubbing. -? NEURO: -? Mental Status: The patient was alert and oriented to time, place, andperson. Normal recent/remote memory, concentration, and general fund of knowledge. -? Language: speech is clear.? Naming, repetition, fluency, and comprehension intact. -? Cranial Nerves: R pupil 4mm no reactivity, L pupil 3mm reactive to light, no reactivity on R pupil with swinging eye test. EOMI, visual duarte full, no facial asymmetry, facial sensation intact, hearing intact, tongue midline, no evidence of atrophy or fibrillations. tongue with R deviation nystagmus on b/l eval, R>L. -? Motor: normal bulk, tone, and strength throughout. No pronator drift or satelliting. Upper and lower extremities equal bilaterally. -? Detailed strength exam as performed by the nurse/JENNIFER and witnessed bythe physician: R L SA 5 4 EE 5 4 EF 5 4 WE l WF Computer Peripheral Equipment Operator 5 5 HF 3 4 KE 4 3 KF 3 3 DF 5 5 PF 5 5 -? Tone: is normal and bulk is normal - no spasticity noted in the elbows and knees -? Sensation- Intact to light touch bilaterally -? Coordination: ataxia in the LUE and RLE on FTN and HTS respectively -? Gait- deferred Lab / Micro Data 12/02/23 06:40 12/02/23 06:40 Labs: Laboratory Results - last 24 hr 12/02/23 06:40: WBC 6.6, RBC 4.21, Hgb 12.5, Hct 37.5, MCV 89.1, MCH 29.7, MCHC 33.3, RDW Std Deviation 50.4 H, RDW Coeff of David 15.5 H, Plt Count 281, MPV 9.1,Immature Gran % (Auto) 0.800, Neut % (Auto) 56.3, Lymph % (Auto) 28.5, Mesa % (Auto) 12.7 H, Eos % (Auto) 0.9, Baso % (Auto) 0.8, Absolute Neuts (auto) 3.8, Absolute Lymphs (auto) 1.89, Nucleated RBC % 0, Sodium 140, Potassium 3.7, Chloride 107, Carbon Dioxide 25.0, Anion Gap 8, BUN 16, Creatinine 1.13 H, EstimCreat Clear Calc 41.54, Est GFR (MDRD) Af Amer 61, Est GFR (MDRD) Non-Af 51 L, BUN/Creatinine Ratio 14.2, Glucose 109 H, Calcium 8.8, Total Creatine Kinase 26 12/02/23 10:30: Urine Color Yellow, Urine Clarity Clear, Urine pH 6.5, Ur Specific Flaxton 1.015, Urine Protein 15 H, Urine Glucose (UA) Normal, Urine Ketones Negative, Urine Occult Blood Negative, Urine Nitrite Negative, Urine Bilirubin Negative, Urine Urobilinogen Normal, Ur Leukocyte Esterase 25 H, UrineRBC 0 SEEN, Urine WBC 0 SEEN, Ur Squamous Epith Cells 0 SEEN, Urine Bacteria 0 SEEN, Urine Mucus 0 SEEN Micro: Microbiology 12/02/23 07:37 Mucosa - Nose SARS-CoV-2, Influenza & RSV (PCR) - Final Rhythm Strip Rhythm Strip: Sinus Rhythm Rate: 55 Ectopy: None Imagaing Radiology Impression Brain CT 12/02/23 07:28 IMPRESSION: No acute intracranial abnormality. No interval change. Electronically Signed: Chago Mcintyre MD at 8:45 EST , Chest X-Ray 12/02/23 07:28 IMPRESSION: Minimal infiltrate or atelectasis of the right lower lobe. Electronically Signed: Chago Mcintyre MD at 9:06 EST , Active Medications Active Medications Active Medications: Current Medications Generic Name Dose Route Start Last Admin Trade Name Freq PRN Reason Stop Dose Admin Acetaminophen 650 mg 12/02/23 12:37 Acetaminophen 325 Mg Tablet PO Q6H PRN PRN Pain 1-10 Or Fever >100.7 Al Hydroxide/Mg Hydroxide 30 ml 12/02/23 12:37 Mag Hydrox/Al Hydrox/Simeth 30 Ml Udc PO Q6H PRN PRN Gastric Burning Albuterol Sulfate 2.5 mg 12/02/23 12:37 Albuterol 2.5 Mg/3 Ml Vial.Neb. INHALATION Q2H PRN PRN SOB/Wheezing Apixaban 5 mg 12/02/23 22:00 Apixaban 5 Mg Tablet PO BID VIMAL Baclofen 20 mg 12/02/23 12:45 Baclofen 10 Mg Tablet PO Q8 [facility] Cholecalciferol 125 mcg 12/03/23 10:00 Cholecalciferol (Vit D3) 125 Mcg Capsule (5,000 Units) PO DAILY [facility] Clopidogrel Bisulfate 75 mg 12/03/23 10:00 Clopidogrel Bisulfate 75 Mg Tablet PO DAILY [facility] Docusate Sodium 100 mg 12/02/23 12:37 Docusate Sodium 100 Mg Capsule PO BID PRN PRN Constipation Gabapentin 800 mg 12/02/23 12:45 Gabapentin 800 Mg Tablet PO TIDCM [facility] Guaifenesin 1 tablet 12/02/23 22:00 Guaifenesin/D-Methorphan Tab.Sr.12h PO Q12 [facility]IMAL Guaifenesin 20 ml 12/02/23 12:37 Guaifenesin 10 Ml Udc (200mg/10ml) PO Q4H PRN PRN COUGH Potassium Chloride/Dextrose/Sod Cl 20 meq in 1,000 mls @ 100 mls/hr 12/02/23 12:37 IV 12/03/23 08:36 .Q10H [facility]IMAL Ceftriaxone Sodium 1 gm in 50 mls @ 100 mls/hr 12/02/23 12:37 Rocephin IV 12/09/23 12:38 Q24 [facility] Levothyroxine Sodium 50 mcg 12/03/23 06:00 Levothyroxine 50 Mcg Tablet PO DAILY@0600 VIMAL Lisinopril 5 mg 12/03/23 10:00 Lisinopril 5 Mg Tablet PO DAILY [facility] Protocol Melatonin 3 mg 12/02/23 12:37 Melatonin 3 Mg Tablet PO QHS PRN PRN INSOMNIA Metoprolol Tartrate 12.5 mg 12/02/23 22:00 Metoprolol Tartrate 25 Mg Tablet PO BID VIMAL Protocol Nitroglycerin 0.4 mg 12/02/23 12:37 Nitroglycerin (Inpatient Use) 0.4 Mg Tab.Subl SL Q5M PRN CARDIAC/CHEST PAIN Ondansetron HCl 4 mg 12/02/23 12:37 Ondansetron 4 Mg/2 Ml Vial IV Q8H PRN PRN NAUSEA/VOMITING Oxycodone HCl 10 mg 12/02/23 12:37 12/02/23 13:01 Oxycodone 5 Mg Tablet PO 10 mg Q4H PRN PRN Administration Pain Score 4-10 12/02/23 1451 <Electronically signed by Kiley Carpenter MD> Cosigner Signature (if applicable): CC: Jo Ann Krishnamurthy; Ruby Wynn; Rima Riggins; Michele Crawley; Kiley Carpenter MD;Angie Shields MD; Kt Friend MD; Dr. Johnny Sepulveda MD; Dr. Daron Benton MD;Dr. Nikole Allison MD; Dr. Kristopher Hernández MD; Dr. Gerald Suh MD; Dr. Silvino Schmidt DO; Dr. Simon Tellez MD; Dr. Sarkis Brown MD; Dr. Kirsten Azevedo MD; Dr. Joseph Desai MD; Dr. Samina Mortensen MD; Arleen Estrada DO; Keyona Davidson MD~ Signed [facility] Work Phone: [phone]) [phone] Discharge summary Author [facility] December 02, 2023 1:21pm Note Date/Time December 02, 2023 8 :23am [facility] Medical Records Department [address] [place] [address] Emergency Department Summary 12/02/23 MR#: [id number] Acct: [id number] Name: ANGÉLICA YO Rep #:[id number] : 1955 68 From: Gabriella Green PCP: Dr. Daron Benton MD Status:ADM IN Location: [place] [address] HPI History of Present Illness Chief Complaint: Dizziness Informant: patient Narrative Narrative: Patient is 68-year-old female with history of multiple sclerosis, psoriatic arthritis, coronary artery disease, atrial fibrillation (not currently on any anticoagulation secondary to GI upset), bilateral carotid artery stenosis with bilateral CEA as well as brain aneurysm status post coiling in 2013 presenting with weakness and dizziness. Patient is a pretty poor historian and is not forthcoming with what brings her in. It seems like she has been dizzy since yesterday but when asked whether it is more of a lightheaded sensation or room pain sensation she does not answer and just tells me she feels numb all over. She reported to triage nurse that she had headache however she currently denies any acute headache. She denies any focal weakness. She does live home alone. She think she is having an MS flare. She notes that she was diagnosed with pneumonia/influenza a week ago and continues to have a cough. She denies any recent falls, fevers, vomiting or change in bowel habits. Denies any urinary symptoms. Her neurologist is in [place]. [facility] Medical History Angina pectoris Bilateral carotid artery stenosis Chronic pain syndrome Coronary artery disease Essential (primary) hypertension Fatty liver GERD (gastroesophageal reflux disease) Goiter History of transient ischemic attack (TIA) HLD (hyperlipidemia) Hypothyroidism Influenza A Multiple sclerosis Nonobstructive atherosclerosis of coronary artery Nonsustained paroxysmal supraventricular tachycardia Osteoarthritis Osteoporosis Peripheral vascular occlusive disease Psoriasis Psoriatic arthritis Smoker Thrombocytopenia TIA (transient ischemic attack) Home Medications cholecalciferol (vitamin D3) 125 mcg (5,000 unit) tablet 5,000 unit PO DAILY supplement 12/16/13 [History Last Taken 12/01/23] gabapentin 800 mg tablet 800 mg PO TID MS 07/16/18 [History Last Taken 12/01/23] baclofen 20 mg tablet 20 mg PO Q8H MS 08/11/21 [History Last Taken 12/01/23] levothyroxine 50 mcg tablet 50 mcg PO DAILY thyroid 08/11/21 [History Last Taken 12/01/23] oxycodone 10 mg tablet 10 mg PO Q6H PRN pain 05/24/23 [History Last Taken 12/01/23] clopidogrel 75 mg tablet 75 mg PO DAILY dose increased, pt is OUT of med, pleasefill #90 TABLETS 06/01/23 [Rx Last Taken 11/18/23] lisinopril 5 mg tablet 5 mg PO DAILY blood pressure #30 tabs 11/02/23 [Rx Last Taken 12/01/23] dextromethorphan-guaifenesin ER 60 mg-1,200 mg tab,extend release,12hr (Mucinex DM) 1 tab PO Q12H cough/congest 7 days #14 tabs 11/16/23 [Rx Last Taken 12/01/23] apixaban 5 mg tablet (Eliquis) 5 mg PO BID 30 days #60 tabs 11/21/23 [Rx Last Taken 12/01/23] metoprolol tartrate 25 mg tablet 12.5 mg (1/2 x 25 mg) PO BID 30 days #30 tabs 11/21/23 [Rx Last Taken 12/01/23] Allergy/AdvReac Type Severity Reaction Status Date / Time colestipol [From Colestid] Allergy Mild unknown Verified 11/26/23 12:47 pregabalin [From Lyrica] Allergy Mild Hives Verified 11/26/23 12:47 amitriptyline Allergy Rash Verified 11/26/23 12:47 temazepam [From Restoril] AdvReac Mild Nausea/Vom/ Verified 11/26/23 12:47 Diarrhea Antihistamines - Alkylamine AdvReac Nausea/Vom/ Verified 11/26/23 12:47 Diarrhea Antihistamines - Ethanolamine AdvReac Nausea/Vom/ Verified 11/26/23 12:47 Diarrhea Antihistamines - AdvReac Nausea/Vom/ Verified 11/26/23 12:47 Ethylenediamine Diarrhea Antihistamines - Piperazine AdvReac Nausea/Vom/ Verified 11/26/23 12:47 Diarrhea Antihistamines - Piperidine AdvReac Nausea/Vom/ Verified 11/26/23 12:47 Diarrhea aspirin AdvReac I'M ON Verified 11/26/23 12:47 BLOOD THINNERS codeine AdvReac Nausea Verified 11/26/23 12:47 Corticosteroids AdvReac Upset Verified 11/26/23 12:47 (Glucocorticoids) Stomach morphine AdvReac Nausea Verified 11/26/23 12:47 Xmwspxb-[id number]-GsD Reductase AdvReac Nausea Verified 11/26/23 12:47 Inhibitor [Tiovvsv-Syd-Mft Reductase Inhibitor] Family History Mother Cancer CAD (coronary artery disease) Brain tumor Grandfather CVA (cerebral vascular accident) Father CAD (coronary artery disease) Ruptured abdominal aortic aneurysm (AAA) Sister Brain aneurysm Surgical History Brain aneurysm Fracture of right lower leg H/O hemorrhoidectomy H/O: History of angioplasty of peripheral vessel History of angioplasty of peripheral vessel (07/11/19) History of appendectomy History of section History of cholecystectomy History of hemorrhoidectomy History of hysterectomy History of left breast biopsy History of left heart catheterization (01/25/15) History of left-sided carotid endarterectomy History of partial thyroidectomy (11/30/05) History of right-sided carotid endarterectomy S/P coil embolization of cerebral aneurysm S/P hysterectomy S/P insertion of iliac artery stent S/P thyroidectomy Stenosis of left subclavian artery Social History household members: none Smoking Status: Current every day smoker tobacco type: cigarettes alcohol intake: never caffeine: Yes Type: coffee and tea ROS ROS ED Constitutional Constitutional ED: Denies chills or fever(s) Eyes Eyes: Denies change in vision Cardiovascular Cardiovascular: Denies chest pain Respiratory/Chest Respiratory/Chest: Reports cough Gastrointestinal Gastrointestinal: Denies abdominal pain, nausea or vomiting Musculoskeletal Musculoskeletal: Reports arthralgias, back pain, myalgias and other Details: chronic pains Integumentary Denies rash Neurologic Neurologic: Reports weakness; Denies headache(s) or paresthesias Hematologic/Lymphatic Hematologic/Lymphatic: Denies easy bleeding or easy bruising EXAM Physical Exam Const Vital Signs: 12/02/23 06:30 12/02/23 06:33 12/02/23 06:40 Temperature 97.4 F L 97.6 F L Temperature Source Oral Oral Pulse Rate 63 66 Respiratory Rate 22 H 16 Respiratory Effort Normal Non-Labored Respiratory Pattern Normal Blood Pressure 201/91 H Blood Pressure Mean 127 Pulse Ox 97 93 Oxygen Delivery Method Room Air Room Air 12/02/23 08:13 12/02/23 08:53 12/02/23 10:30 Temperature Temperature Source Pulse Rate 72 53 L 51 L Respiratory Rate 21 H 22 H 19 H Respiratory Effort Respiratory Pattern Blood Pressure 156/74 H 207/82 H 183/93 H Blood Pressure Mean 101 123 123 Pulse Ox 92 97 96 Oxygen Delivery Method Room Air Room Air Room Air Positive well nourished and well developed General Appearance ED: well developed and NAD HEENT Reports moist mucous membranes Eyes PERRL Eyes Narrative: Patient has nystagmus in all directions of gaze is bilateral Neck supple and no JVD Chest Wall inspection of chest normal Resp normal respiratory effort and clear to auscultation bilaterally Resp Narrative: Wet cough intermittently Cardio regular rate, regular rhythm and no murmurs GI normal to inspection, nondistended, normoactive bowel sounds and non-tender Extremity normal to inspection Neuro Neuro Narrative: Somnolent and delay in answering questions but then will answer questions appropriately intermittently. Not sure if this is neurologic versus personality Generally weak. Will not lift either leg off the bed. Is able to do [id number] but has bilateral ataxia with it. Too weak to sit up in bed to track for truncal ataxia. Sensation intact to light touch bilaterally. No facial droop appreciated. Sensorium / Orientation: alert Psych Mood & Affect: depressed Skin no rashes or lesions noted and no wounds MDM MDM MDM Narrative Medical decision making narrative: Patient is evaluated for vague dizziness which is not clear if this is more of alightheadedness versus vertigo however she does have nystagmus on exam. The nystagmus is bidirectional as well as up and down so concerning for central process. She Is generally weak and has questionable ataxia her extremities however she still able to touch my finger her nose with [id number]. Her symptoms started at least 24 hours ago so she is not a TNK candidate and did notcall a stroke alert. Will perform metabolic workup including a CT of the brain. 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 I do not think this needs to be repeated at this time. Hypertensive in the ER with a blood pressure of 201/91. Is given her morning medications (metoprolol and lisinopril). Improvement of her blood pressure in the ER. Workup is largely negative. No signs of acute urinary tract infection, acute dehydration, rhabdomyolysis, symptomatic anemia or acute infection. CT of the brain does not show any acute process. Chest x-ray shows minimal infiltrate or atelectasis of the right lowerlobe. By myself as well as radiology. Given her lack of fever, hypoxia or leukocytosis will defer treatment at this time And treat more as atelectasis versus true pneumonia. Given the patient's neurologic symptoms with her history of MS will admit for further evaluation, potential MRI/neurologic consult for possible MS flare. In addition patient has debility and lives home alone so I do not want her to have a fall or further injury especially as she is so weak here. Discussed that she might require placement. Case discussed with the main physician, Dr. Mckeon. Lab Data Attestation: I reviewed the patient's lab results. Labs: Laboratory Results - last 24 hr 12/02/23 12/02/23 06:40 10:30 WBC 6.6 RBC 4.21 Hgb 12.5 Hct 37.5 MCV 89.1 MCH 29.7 MCHC 33.3 RDW Std Deviation 50.4 H RDW Coeff of David 15.5 H Plt Count 281 MPV 9.1 Immature Gran % (Auto) 0.800 Neut % (Auto) 56.3 Lymph % (Auto) 28.5 Mesa % (Auto) 12.7 H Eos % (Auto) 0.9 Baso % (Auto) 0.8 Absolute Neuts (auto) 3.8 Absolute Lymphs (auto) 1.89 Nucleated RBC % 0 Sodium 140 Potassium 3.7 Chloride 107 Carbon Dioxide 25.0 Anion Gap 8 BUN 16 Creatinine 1.13 H Estim Creat Clear Calc 41.54 Est GFR (MDRD) Af Amer 61 Est GFR (MDRD) Non-Af 51 L BUN/Creatinine Ratio 14.2 Glucose 109 H Calcium 8.8 Total Creatine Kinase 26 Urine Color Yellow Urine Clarity Clear Urine pH 6.5 Ur Specific Flaxton 1.015 Urine Protein 15 H Urine Glucose (UA) Normal Urine Ketones Negative Urine Occult Blood Negative Urine Nitrite Negative Urine Bilirubin Negative Urine Urobilinogen Normal Ur Leukocyte Esterase 25 H Urine RBC 0 SEEN Urine WBC 0 SEEN Ur Squamous Epith Cells 0 SEEN Urine Bacteria 0 SEEN Urine Mucus 0 SEEN Radiography Diagnostic Testing: Clinical Impression(s) from Imaging Studies Brain CT 12/02/23 07:28 IMPRESSION: No acute intracranial abnormality. No interval change. Electronically Signed: Chago Mcintyre MD at 8:45 EST Reading Location ID and State: [facility] / MD Tel , Service support , Chest X-Ray 12/02/23 07:28 IMPRESSION: Minimal infiltrate or atelectasis of the right lower lobe. Electronically Signed: Chago Mcintyre MD at 9:06 EST , Rhythm Strip Rhythm Strip: Sinus Rhythm Rate: 55 Ectopy: None EKG Initial EKG: Attestation: I personally reviewed and interpreted this EKG as follows: Interpretation: Sinus Bradycardia Comments: Sinus bradycardia at a rate of 55 bpm with sinus arrhythmia Possible left atrial enlargement with minimal voltage criteria for LVH (likely normal variant) Compared to prior EKG on 11/27/2023, no significant changes Management Discussion w/another healthcare provider: Hospitalist Discharge Plan Dx/Rx/DC Orders Clinical Impression: Dizziness, Weakness, Multiple sclerosis Disposition Disposition: Acute Care Hospital [facility] Discharge Date/Time: 12/02/23 12:36 What to do if you have Problems For any increased pain, shortness of breath, bleeding, nausea or vomiting, chestpain, or any unexpected problems, contact your Primary Care Provider. Call [facility] ([phone]) or report to the closest Emergency Room. Call 911 if necessary. 12/02/23 1321 <Electronically signed by Gabriella Simpson DO> Cosigner Signature (if applicable): CC: Dr. Daron Benton MD ~ Signed [facility] Work Phone: [phone]) 508-653401-14-2024 History and physical note Author Roman Mckeon [facility] Paula 14th, 2024 11:53am Note Date/Time December 02, 2023 1 1:43am [facility] Medical Records Department [address] [place] [address] H&P Exam - Hospitalist 12/02/23 1140 MR#: [id number] Acct: [id number] Name: ANGÉLICA YO Rep #:[id number] : 1955 68 From: Roman Mckeon MD PCP: Dr. Daron Benton MD Status:ADM IN Location: NV3 [id number] HPI - General General Date of Admission: 12/02/23 Date of Service: 12/02/23 Chief Complaint: Generalized weakness HPI Narrative ANGÉLICA YO, is a 68 F with past medical history is again for multiple sclerosis, recent hospitalization for acute influenza A infection who presented with generalized weakness. Per patient symptoms have been going on for couple of days. Patient however denied any subjective fever no chills. Presented to the emergency department initial workup including head CT came back unremarkableurinalysis however did demonstrate positive leukocyte esterase. Admitted to a monitored bed for further management [facility] Medical History Angina pectoris Bilateral carotid artery stenosis Chronic pain syndrome Coronary artery disease Essential (primary) hypertension Fatty liver GERD (gastroesophageal reflux disease) Goiter History of transient ischemic attack (TIA) HLD (hyperlipidemia) Hypothyroidism Influenza A Multiple sclerosis Nonobstructive atherosclerosis of coronary artery Nonsustained paroxysmal supraventricular tachycardia Osteoarthritis Osteoporosis Peripheral vascular occlusive disease Psoriasis Psoriatic arthritis Smoker Thrombocytopenia TIA (transient ischemic attack) Home Medications cholecalciferol (vitamin D3) 125 mcg (5,000 unit) tablet 5,000 unit PO DAILY supplement 12/16/13 [History Last Taken 12/01/23] gabapentin 800 mg tablet 800 mg PO TID MS 07/16/18 [History Last Taken 12/01/23] baclofen 20 mg tablet 20 mg PO Q8H MS 08/11/21 [History Last Taken 12/01/23] levothyroxine 50 mcg tablet 50 mcg PO DAILY thyroid 08/11/21 [History Last Taken 12/01/23] oxycodone 10 mg tablet 10 mg PO Q6H PRN pain 05/24/23 [History Last Taken 12/01/23] clopidogrel 75 mg tablet 75 mg PO DAILY dose increased, pt is OUT of med, pleasefill #90 TABLETS 06/01/23 [Rx Last Taken 11/18/23] lisinopril 5 mg tablet 5 mg PO DAILY blood pressure #30 tabs 11/02/23 [Rx Last Taken 12/01/23] dextromethorphan-guaifenesin ER 60 mg-1,200 mg tab,extend release,12hr (Mucinex DM) 1 tab PO Q12H cough/congest 7 days #14 tabs 11/16/23 [Rx Last Taken 12/01/23] apixaban 5 mg tablet (Eliquis) 5 mg PO BID 30 days #60 tabs 11/21/23 [Rx Last Taken 12/01/23] metoprolol tartrate 25 mg tablet 12.5 mg (1/2 x 25 mg) PO BID 30 days #30 tabs 11/21/23 [Rx Last Taken 12/01/23] Allergy/AdvReac Type Severity Reaction Status Date / Time colestipol [From Colestid] Allergy Mild unknown Verified 11/26/23 12:47 pregabalin [From Lyrica] Allergy Mild Hives Verified 11/26/23 12:47 amitriptyline Allergy Rash Verified 11/26/23 12:47 temazepam [From Restoril] AdvReac Mild Nausea/Vom/ Verified 11/26/23 12:47 Diarrhea Antihistamines - Alkylamine AdvReac Nausea/Vom/ Verified 11/26/23 12:47 Diarrhea Antihistamines - Ethanolamine AdvReac Nausea/Vom/ Verified 11/26/23 12:47 Diarrhea Antihistamines - AdvReac Nausea/Vom/ Verified 11/26/23 12:47 Ethylenediamine Diarrhea Antihistamines - Piperazine AdvReac Nausea/Vom/ Verified 11/26/23 12:47 Diarrhea Antihistamines - Piperidine AdvReac Nausea/Vom/ Verified 11/26/23 12:47 Diarrhea aspirin AdvReac I'M ON Verified 11/26/23 12:47 BLOOD THINNERS codeine AdvReac Nausea Verified 11/26/23 12:47 Corticosteroids AdvReac Upset Verified 11/26/23 12:47 (Glucocorticoids) Stomach morphine AdvReac Nausea Verified 11/26/23 12:47 Wtpsvuc-HKK-JnE Reductase AdvReac Nausea Verified 11/26/23 12:47 Inhibitor [Sbrrrgo-Qng-Szp Reductase Inhibitor] Family History Mother Cancer CAD (coronary artery disease) Brain tumor Grandfather CVA (cerebral vascular accident) Father CAD (coronary artery disease) Ruptured abdominal aortic aneurysm (AAA) Sister Brain aneurysm Surgical History Brain aneurysm Fracture of right lower leg H/O hemorrhoidectomy H/O: History of angioplasty of peripheral vessel History of angioplasty of peripheral vessel (07/11/19) History of appendectomy History of section History of cholecystectomy History of hemorrhoidectomy History of hysterectomy History of left breast biopsy History of left heart catheterization (01/25/15) History of left-sided carotid endarterectomy History of partial thyroidectomy (11/30/05) History of right-sided carotid endarterectomy S/P coil embolization of cerebral aneurysm S/P hysterectomy S/P insertion of iliac artery stent S/P thyroidectomy Stenosis of left subclavian artery Social History household members: none Smoking Status: Current every day smoker tobacco type: cigarettes alcohol intake: never caffeine: Yes Type: coffee and tea ROS ROS Narrative GENERAL: denies fever, chills, night sweats, weight loss, anorexia HEENT: denies headache, sinus congestion, or drainage, dysphagia RESPIRATORY: denies cough, sputum production, shortness of breath, dyspnea on exertion CARDIAC: denies chest pain, palpitations, orthopnea, PND GASTROINTESTINAL: denies abdominal pain, nausea, vomiting, melena, GENITOURINARY: denies dysuria, urgency, frequency, heamaturia EXTREMITY: denies swelling MUSCULOSKELETAL: denies current joint pain or tenderness NEUROLOGIC: denies focal numbness, weakness, tingling HEMATOLOGIC: denies easy bruising and/or hemorrhage INTEGUMENT: denies rashes PSYCHIATRIC: denies suicidal or homicidal ideation Vital Signs Vital Signs Vital Signs: 12/02/23 06:30 12/02/23 06:33 12/02/23 06:40 Temperature 97.4 F L 97.6 F L Temperature Source Oral Oral Pulse Rate 63 66 Respiratory Rate 22 H 16 Respiratory Effort Normal Non-Labored Respiratory Pattern Normal Blood Pressure 201/91 H Blood Pressure Mean 127 Pulse Ox 97 93 Oxygen Delivery Method Room Air Room Air 12/02/23 08:13 12/02/23 08:53 12/02/23 10:30 Temperature Temperature Source Pulse Rate 72 53 L 51 L Respiratory Rate 21 H 22 H 19 H Respiratory Effort Respiratory Pattern Blood Pressure 156/74 H 207/82 H 183/93 H Blood Pressure Mean 101 123 123 Pulse Ox 92 97 96 Oxygen Delivery Method Room Air Room Air Room Air Weight Weight: 56 kg Body Mass Index (BMI) 20.5 Physical Exam Narrative GENERAL: cooperative HEENT: Atraumatic; normocephalic EYES; Anicteric, Normal Conjunctiva NECK; supple, normal thyroid, RESPIRATORY: Diminished to auscultation CARDIOVASCULAR: Regular S1 S2, GI: soft, normoactive bowel sounds, : No Renal angle tenderness; EXTREMITIES: No edema, no clubbing, MUSCULOSKELETAL: no muscle wasting NEURO: Awake; no lateralizing signs. SKIN: No Rash PSYCH; Flat affect Results Lab / Micro Data 12/02/23 06:40 12/02/23 06:40 Labs: Laboratory Results - last 24 hr 12/02/23 06:40: WBC 6.6, RBC 4.21, Hgb 12.5, Hct 37.5, MCV 89.1, MCH 29.7, MCHC 33.3, RDW Std Deviation 50.4 H, RDW Coeff of David 15.5 H, Plt Count 281, MPV 9.1,Immature Gran % (Auto) 0.800, Neut % (Auto) 56.3, Lymph % (Auto) 28.5, Mesa % (Auto) 12.7 H, Eos % (Auto) 0.9, Baso % (Auto) 0.8, Absolute Neuts (auto) 3.8, Absolute Lymphs (auto) 1.89, Nucleated RBC % 0, Sodium 140, Potassium 3.7, Chloride 107, Carbon Dioxide 25.0, Anion Gap 8, BUN 16, Creatinine 1.13 H, EstimCreat Clear Calc 41.54, Est GFR (MDRD) Af Amer 61, Est GFR (MDRD) Non-Af 51 L, BUN/Creatinine Ratio 14.2, Glucose 109 H, Calcium 8.8, Total Creatine Kinase 26 12/02/23 10:30: Urine Color Yellow, Urine Clarity Clear, Urine pH 6.5, Ur Specific Flaxton 1.015, Urine Protein 15 H, Urine Glucose (UA) Normal, Urine Ketones Negative, Urine Occult Blood Negative, Urine Nitrite Negative, Urine Bilirubin Negative, Urine Urobilinogen Normal, Ur Leukocyte Esterase 25 H, UrineRBC 0 SEEN, Urine WBC 0 SEEN, Ur Squamous Epith Cells 0 SEEN, Urine Bacteria 0 SEEN, Urine Mucus 0 SEEN Micro: Microbiology 12/02/23 07:37 Mucosa - Nose SARS-CoV-2, Influenza & RSV (PCR) - Final Rhythm Strip Rhythm Strip: Sinus Rhythm Rate: 55 Ectopy: None Imagaing Radiology Impression Brain CT 12/02/23 07:28 IMPRESSION: No acute intracranial abnormality. No interval change. Electronically Signed: Chago Mcintyre MD at 8:45 EST , Chest X-Ray 12/02/23 07:28 IMPRESSION: Minimal infiltrate or atelectasis of the right lower lobe. Electronically Signed: Chago Mcintyre MD at 9:06 EST , Assessment & Plan Assessment/Plan (1) Weakness: PLAN: Plan Patient is a 68-year-old lady admitted with progressive generalized weakness 1. Progressive generalized weakness ? Differential diagnoses include patient possible cystitis versus MS flareup. Plan is to treat the underlying suspected cystitis and if no improvement patientto be initiated on steroids consult subsequently placed to teleneurology 2. Acute cystitis ? Patient had positive leukocyte esterase started on ceftriaxone cultures sent 3. Recent -diagnosis of acute influenza A infection chest x-ray obtained on admission demonstrated some infiltrate patient has been started on ceftriaxone 4. Multiple sclerosis ? Patient is on baclofen for symptom management 5. Paroxysmal A-fib ? Rate controlled on systemic anticoagulation with apixaban continue 6. Essential hypertension ? Patient blood pressure control not optimal due to continuing home meds added hydralazine as needed. Blood pressure greater than 160 7. Tobacco dependence - Counseled on cessation, offered nicotine patch for tobacco cravings 8. Hypothyroidism - Patient is on levothyroxine home dose continued 9. Peripheral arterial disease ? With history of iliac stent As well as bilateral carotid endarterectomy. Patient is on antiplatelet therapy 10. Psoriatic arthritis ? Patient not on any DMARDs, will continue with pain meds as needed DVT prophylaxis ? Patient is on apixaban Time spent in the patient's overall evaluation,decision-making process, review of diagnostic data, adjustment of management, discussion with other providers, nursing nursing and ancillary staff involved in patient's care documentation, 75Minutes Advance planning; did discuss with the patient and family regarding advanced directives as well as CODE STATUS. Did explain the various scenarios involved (FULL CODE, DNR CCA, DNR CCA with no intubation, and DNR CC and what each meant) patient elected to to remain full code with CPR and intubation if warranted. Order was placed. Time spent on discussion 18 minutes. Charges/Coding Visit Charges Inpatient E&M: 15534 Init Hosp L3 Procedures Hospitalists Procedures: 45916 Advncd Care Plan 30 Min 12/02/23 1153 <Electronically signed by Roman Mckeon MD> Cosigner Signature (if applicable): CC: Dr. Roman Mckeon MD; Dr. Daron Benton MD~ Signed [facility] Work Phone: [phone]) 487-742201-09-2024 Discharge summary Author Ramírez Onofre [facility] November 27, 2023 11:55am Note Date/Time November 27, 2023 9: 40am [facility] Medical Records Department [address] [place] [id number] Emergency Department Summary 11/27/23 MR#: [id number] Acct: [id number] Name: ANGÉLICA YO Rep #:[id number] : 1955 68 From: Ramírez Onofre MD PCP: Dr. Daron Benton MD Status:REG ER Location: ED HPI History of Present Illness Chief Complaint: Neuro S/Sx Informant: patient Onset/Context/Timing Onset: Today Context: - (Awoke with symptoms this morning..) Timing: Continuous Quality and Location: Positive for Right Face Paresthesia and Right Arm Parasthesia; Negative for Right Facial Droop, Left Facial Droop, Left Face Parasthesia, Left Arm Parasthesia, Right Leg Parasthesia, Left Leg Parasthesia, Right Arm Weakness, Left Arm Weakness, Right Leg Weakness, Left Leg Weakness, Slurred Speech, Expressive Aphasia, Receptive Aphasia or Difficulty with Ambulation Current Severity: Mild Maximum Severity: Mild Associated Symptoms Associated Symptoms: Negative for Headache, Nausea, Vomiting or Chest Pain Narrative Narrative: 68-year-old female states she just does not feel right. States that she awoke this morning with right facial numbness and right arm numbness. Pressure in herhead. Denies any weakness in her arms or legs. She was evaluated yesterday fora different complaint. She has had a recent hospitalization for influenza and pneumonia. Patient was on Eliquis but took herself off of it due to abdominal discomfort while taking it. She has a significant history of carotid stenosis, CAD, A-fib along with a prior brain aneurysm clipped. She also has a history ofMS. Prior similar symptoms: No Recent Illness/Hospitalization: No [facility] Medical History Angina pectoris Bilateral carotid artery stenosis Chronic pain syndrome Coronary artery disease Essential (primary) hypertension Fatty liver GERD (gastroesophageal reflux disease) Goiter History of transient ischemic attack (TIA) HLD (hyperlipidemia) Hypothyroidism Influenza A Multiple sclerosis Nonobstructive atherosclerosis of coronary artery Nonsustained paroxysmal supraventricular tachycardia Osteoarthritis Osteoporosis Peripheral vascular occlusive disease Psoriasis Psoriatic arthritis Smoker Thrombocytopenia TIA (transient ischemic attack) Home Medications cholecalciferol (vitamin D3) 125 mcg (5,000 unit) tablet 5,000 unit PO DAILY supplement 12/16/13 [History Last Taken 11/17/23] gabapentin 800 mg tablet 800 mg PO TID MS 07/16/18 [History Last Taken 11/18/23] baclofen 20 mg tablet 20 mg PO Q8H MS 08/11/21 [History Last Taken 11/18/23] levothyroxine 50 mcg tablet 50 mcg PO DAILY thyroid 08/11/21 [History Last Taken 11/18/23] oxycodone 10 mg tablet 10 mg PO Q6H PRN pain 05/24/23 [History Last Taken 11/18/23] clopidogrel 75 mg tablet 75 mg PO DAILY dose increased, pt is OUT of med, pleasefill #90 TABLETS 06/01/23 [Rx Last Taken 11/18/23] lisinopril 5 mg tablet 5 mg PO DAILY blood pressure #30 tabs 11/02/23 [Rx Last Taken 11/18/23] dextromethorphan-guaifenesin ER 60 mg-1,200 mg tab,extend release,12hr (Mucinex DM) 1 tab PO Q12H cough/congest 7 days #14 tabs 11/16/23 [Rx Last Taken 11/17/23] apixaban 5 mg tablet (Eliquis) 5 mg PO BID 30 days #60 tabs 11/21/23 [Rx Last Taken Unknown] metoprolol tartrate 25 mg tablet 12.5 mg (1/2 x 25 mg) PO BID 30 days #30 tabs 11/21/23 [Rx Last Taken Unknown] Allergy/AdvReac Type Severity Reaction Status Date / Time colestipol [From Colestid] Allergy Mild unknown Verified 11/26/23 12:47 pregabalin [From Lyrica] Allergy Mild Hives Verified 11/26/23 12:47 amitriptyline Allergy Rash Verified 11/26/23 12:47 temazepam [From Restoril] AdvReac Mild Nausea/Vom/ Verified 11/26/23 12:47 Diarrhea Antihistamines - Alkylamine AdvReac Nausea/Vom/ Verified 11/26/23 12:47 Diarrhea Antihistamines - Ethanolamine AdvReac Nausea/Vom/ Verified 11/26/23 12:47 Diarrhea Antihistamines - AdvReac Nausea/Vom/ Verified 11/26/23 12:47 Ethylenediamine Diarrhea Antihistamines - Piperazine AdvReac Nausea/Vom/ Verified 11/26/23 12:47 Diarrhea Antihistamines - Piperidine AdvReac Nausea/Vom/ Verified 11/26/23 12:47 Diarrhea aspirin AdvReac I'M ON Verified 11/26/23 12:47 BLOOD THINNERS codeine AdvReac Nausea Verified 11/26/23 12:47 Corticosteroids AdvReac Upset Verified 11/26/23 12:47 (Glucocorticoids) Stomach morphine AdvReac Nausea Verified 11/26/23 12:47 Loeavvr-KMO-EdU Reductase AdvReac Nausea Verified 11/26/23 12:47 Inhibitor [Vctzkfk-Xqq-Pod Reductase Inhibitor] Family History Mother Cancer CAD (coronary artery disease) Brain tumor Grandfather CVA (cerebral vascular accident) Father CAD (coronary artery disease) Ruptured abdominal aortic aneurysm (AAA) Sister Brain aneurysm Surgical History Brain aneurysm Fracture of right lower leg H/O hemorrhoidectomy H/O: History of angioplasty of peripheral vessel History of angioplasty of peripheral vessel (07/11/19) History of appendectomy History of section History of cholecystectomy History of hemorrhoidectomy History of hysterectomy History of left breast biopsy History of left heart catheterization (01/25/15) History of left-sided carotid endarterectomy History of partial thyroidectomy (11/30/05) History of right-sided carotid endarterectomy S/P coil embolization of cerebral aneurysm S/P hysterectomy S/P insertion of iliac artery stent S/P thyroidectomy Stenosis of left subclavian artery Social History household members: none Smoking Status: Former smoker alcohol intake: never caffeine: Yes Type: coffee and tea ROS ROS ED ROS Narrative Denies fever, headache, nausea vomiting or diarrhea. Review of Systems ROS Unobtainable: Denies due to encephalopathy Constitutional Constitutional ED: Denies chills or fever(s) Eyes Eyes: Denies blurry vision ENT ENT ED: Denies ear pain Cardiovascular Cardiovascular: Denies chest pain Respiratory/Chest Respiratory/Chest: Denies cough or dyspnea Gastrointestinal Gastrointestinal: Denies abdominal pain Genitourinary Genitourinary ED: Denies dysuria or hematuria Musculoskeletal Musculoskeletal: Denies arthralgias Integumentary Denies abscess Neurologic Neurologic: Reports paresthesias; Denies headache(s) Psychiatric Psychiatric: Denies anxiety or depression Endocrine Endocrinology: Denies polydipsia, polyphagia or polyuria Hematologic/Lymphatic Hematologic/Lymphatic: Denies easy bleeding or easy bruising Allergic/Immunologic Allergic/Immunologic ED: Denies mouth swelling or urticaria EXAM Physical Exam Narrative Exam Narrative: Well-appearing 68-year-old female. Vital signs stable initial blood pressure iselevated 200/92 she did not take her blood pressure medication today. She is afebrile she does not look septic or toxic. She is no distress. H EENT exam dry reactive light extra motions are intact. She can open and close both eyes. She is able to wrinkle her forehead. She has no facial droop. She smiles normally. She has normal speech. Tongue is midline. Neck nontender. No lymphadenopathy. Lungs clear to auscultation bilaterally. Heart bradycardic rate in the 50s. Chest wall nontender. Abdomen soft nontender. She is moving all 4 extremities. She has 5-5 configuration specialist strength equal and symmetrical. Dorsi and plantarflexion intact. She can lift either arm without any drift. Fingertip tonose within normal limits bilaterally. Rapid hand movements normal. She has weakness in both legs she can lift either 1 off the bed but they are both symmetrically weak. Back nontender. Neurologically she is awake and alert withno focal motor or sensory deficits. She has normal facial sensation. No facialdroop. Normal speech. Normal strength. NIH score is 0 currently. Const Vital Signs: 11/27/23 09:01 11/27/23 09:46 11/27/23 09:32 Temperature 98.8 F 98 F Temperature Source Temporal Temporal Pulse Rate 54 L 51 L Respiratory Rate 16 14 Blood Pressure 200/92 H 196/97 H Blood Pressure Mean 128 130 Pulse Ox 92 96 96 Oxygen Delivery Method Room Air Room Air Room Air 11/27/23 09:32 Temperature 98 F Temperature Source Temporal Pulse Rate 52 L Respiratory Rate 14 Blood Pressure 196/97 H Blood Pressure Mean 130 Pulse Ox 95 Oxygen Delivery Method Room Air Positive well nourished and well developed; Negative for obese, cachectic, contractures or unkempt General Appearance ED: well developed and NAD; Negative for unkempt, cachectic or contractures Nutritional Appearance: Negative for cachectic or obese HEENT Reports moist mucous membranes; Denies dry mucous membranes Negative for atraumatic or trauma Nose: Negative for other Mouth ED: No dry mucous membranes Mouth: No dry mucous membranes Eyes PERRL and EOMs intact bilaterally General Eye ED: Negative for pale conjunctiva or scleral icterus Neck no lymphadenopathy, supple and no JVD General: Negative for tenderness Thyroid: Negative for other Chest Wall inspection of chest normal and palpation of chest normal Chest: Negative for other Resp normal respiratory effort and clear to auscultation bilaterally Effort and Inspection: Negative for retractions Auscultation: Negative for rales, rhonchi or wheezes Cardio no murmurs Rate: regular rate Rhythm: regular rhythm GI normal to inspection, nondistended, normoactive bowel sounds, soft to palpation,non-tender, non-distended and no masses Inspection: Negative for abdominal distention Auscultation: normoactive bowel sounds Palpation: Negative for tender or guarding Bladder / Kidney Exam: No other Back/Spine no CVA tenderness General Back: Negative for CVA tenderness Cervical Spine: Negative for cervical spine tenderness Thoracic Spine / Upper Back: Negative for thoracic spinal tenderness Lumbar Spine / Lower Back: Negative for lumbar spinal tenderness Extremity normal to inspection General Extremety ED: Negative for deformity, edema or tenderness General Extremity: Negative for deformity or edema Neuro oriented x3, CN's II-XII intact bilaterally and no sensory deficits noted Sensorium / Orientation: alert, oriented to person, oriented to place and oriented to time; Negative for orientation impaired, confused, lethargic or stuporous Speech: speech normal Sensory Exam: No sensory level loss detected Motor Exam: strength 5/5 throughout Psych mental status grossly normal Appearance: Negative for unkempt Attitude: No agitated Mood & Affect: Negative for depressed, anxious or tearful Skin no wounds General Skin Exam: Negative for jaundice Rashes: no rashes Trauma: Negative for abrasion or laceration NIHSS NIHSS Initial: 1a Level of Consciousness: 0 1b LOC Questions (Score 2 if aphasic/stupor): 0 1c LOC Commands (Only score 1st attempt): 0 2 Best Gaze (If aphasic, use reflexive mvmts.): 0 3 Visual: 0 4 Facial Palsy: 0 5 Motor Arm Right (UN = amputation/fusion): 0 5 Motor Arm Left: 0 6 Motor Leg Right: 0 6 Motor Leg Left: 0 7 Limb ataxia (Only + if out of proportion): 0 8 Sensory (Aphasia/stupor=0 or 1, coma=2): 0 9 Best Language: 0 10 Dysarthria (mute, coma=2, intubated=UN): 0 11 Extinction and Inattention (only scored if +): 0 Total Score: 0 MDM MDM MDM Narrative Medical decision making narrative: 68-year-old states just does not feel white with head pressure. She has no objective findings of stroke or mini stroke currently. NIH score 0. She statessubjectively she feels numbness in her face and arm but she has normal sensationin both her face and arm. No droop. Normal strength. Normal speech. CAT scanand labs are being obtained. Repeat exam patient is doing well at 11:45 AM. Labs are her baseline. CAT scanshows nothing significant. Her NIH remains 0. She will be discharged home withoutpatient follow-up. She is comfortable being discharged home. Again no facial droop. Normal motor strength. Normal sensation. History & Record Review Discussion w/independent historian: Patient Additional record(s) reviewed:: Prior inpatient record, Prior outpatient record,Prior ED visit and Prior labs Lab Data Attestation: I reviewed the patient's lab results. Lab results narrative: BC shows white count of 10. H&H 11.6 and 34. Platelets are 232. PT/INR 13 and 1. Electrolytes show a gap of 2 normal BUN and creatinine of 14 and 1. Glucose 106. Troponin is 10. Labs: Laboratory Results - last 24 hr 11/27/23 09:44 WBC 10.4 RBC 3.89 L Hgb 11.6 L Hct 34.2 L MCV 87.9 MCH 29.8 MCHC 33.9 D RDW Std Deviation 48.7 H RDW Coeff of David 15.3 H Plt Count 232 MPV 9.0 Immature Gran % (Auto) 0.800 Neut % (Auto) 71.7 H Lymph % (Auto) 16.8 L Mesa % (Auto) 9.9 Eos % (Auto) 0.4 Baso % (Auto) 0.4 Absolute Neuts (auto) 7.5 Absolute Lymphs (auto) 1.75 Nucleated RBC % 0 PT 13.0 INR 1.0 APTT 27.8 Sodium 140 Potassium 3.7 Chloride 108 H Carbon Dioxide 30.0 Anion Gap 2 L BUN 14 Creatinine 1.09 H Estim Creat Clear Calc 41.86 Est GFR (MDRD) Af Amer 64 Est GFR (MDRD) Non-Af 53 L BUN/Creatinine Ratio 12.8 Glucose 106 Calcium 8.7 Troponin I High Sens 10 Radiography Diagnostic Testing: Clinical Impression(s) from Imaging Studies Head/Neck CTA 11/27/23 09:33 IMPRESSION: 1. No intracranial great vessel stenosis. 2. Mild atherosclerotic calcification of the origin of the left internal carotid artery without significant stenosis. 3. 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 4. Patent carotid artery graft unchanged. Electronically Signed: Anselmo Muñiz MD at 11:19 EST , Chest X-Ray 11/27/23 10:00 IMPRESSION: No radiographic evidence of acute cardiopulmonary disease. Electronically Signed: Anselmo Muñiz MD at 10:26 EST , Chest x-ray, portable interpreted by myself and the radiologist shows no acute abnormality. Single view. Normal cardiac silhouette. Normal mediastinum. Normal lungs. Rhythm Strip Rhythm Strip: Sinus bradycardia Rate: 50 Ectopy: None EKG Initial EKG: Attestation: I personally reviewed and interpreted this EKG as follows: Interpretation: No Acute Injury Pattern and Sinus Bradycardia Comments: Sinus bradycardia rate of 50 no acute signs of NV or ischemia. No significant change from November 20. Prior EKG tracings: available for review Prior: Unchanged Discharge Plan Triage Chief Complaint: Neuro S/Sx ED Provider: Ramírez Onofre Dx/Rx/DC Orders Clinical Impression: Facial paresthesia, Family history of MS (multiple sclerosis), History of atrial fibrillation Instructions: ED Paraesthesias Prescriptions: No Action gabapentin 800 mg tablet 800 mg PO TID baclofen 20 mg tablet 20 mg PO Q8H levothyroxine 50 mcg tablet 50 mcg PO DAILY Patient Comments: take 1 tablet by mouth once daily oxycodone 10 mg tablet 10 mg PO Q6H PRN Patient Comments: take 1 tab q6 PRN for pain lisinopril 5 mg tablet 5 mg PO DAILY Qty: 30 11RF Hold Instructions: Hold for 7 days. cholecalciferol (vitamin D3) 5,000 UNIT tablet 5,000 unit PO DAILY Patient Comments: supplement dextromethorphan-guaifenesin [Mucinex DM] 60-1,200 mg tablet extended release 12 hr 1 tab PO Q12H 7 Days Qty: 14 0RF metoprolol tartrate 25 mg Tablet 12.5 mg PO BID 30 Days Qty: 30 0RF Eliquis 5 mg Tablet 5 mg PO BID 30 Days Qty: 60 0RF clopidogrel 75 mg tablet 75 mg PO DAILY Qty: 90 3RF Primary Care Provider: Daron Benton Referrals: Daron Benton MD [Primary Care Provider] - As soon as possible Activity Restrictions/Additional Instructions: Labs and CAT scan today showed no significant changes in the past. No signs of acute stroke. Call and follow-up with your primary care physician if this is not improving youand he can discuss further imaging of your neck to see if you may have a pinchednerve. Disposition Disposition: Home, Self Care What to do if you have Problems For any increased pain, shortness of breath, bleeding, nausea or vomiting, chestpain, or any unexpected problems, contact your Primary Care Provider. Call [facility] ([phone]) or report to the closest Emergency Room. Call 911 if necessary. 11/27/23 1154 <Electronically signed by Ramírez Onofre MD> Cosigner Signature (if applicable): CC: Dr. Daron Benton MD ~ Signed [facility] Work Phone: 1(497) 525-524601-03-2024 Discharge summary Author Sachin Murillo [facility] November 21, 2023 9:07am Note Date/Time November 21, 2023 8: 56am [facility] Medical Records Department [address] [place] [id number] Instructions for Home/Discharge Instructions 11/21/23 0855 MR#: [id number] Acct: [id number] Name: ANGÉLICA YO Rep #:[id number] 2 : 1955 68 From: Sachin chan MD PCP: Dr. Daron Benton MD Status:ADM IN Discharge Instructions Diet Discharge Diet: Low fat / Low cholesterol Activity Discharge Activity: Return to Normal Activity Dressing / Incision Call your doctor if you observe: Fever of 101 or Higher, Shortness of breath, Dizziness, Fainting spells, Swelling in the ankles, Chest pain and Increased palpitations (irregular heartbeat) Follow Up Care Test Results: Test results from this visit will be discussed in further detail at your follow- up appointment, if applicable. Discharge Plan Admission Admit Date/Time: 11/18/23 14:48 Attending Provider: Sachin Murillo Primary Care Provider: Daron Benton Consulting Providers: Sommer Resendiz Instructions Additional Instructions / Restrictions: Follow-up with your PCP in 3 to 5 days to monitor your hemoglobin. Your dark stools were likely due to Pepto-Bismol and your hemoglobin has remained stable here but you were started on anticoagulation for your atrial fibrillation in order to decrease risk of stroke which can worsen any bleeding. Discharge Orders/Prescriptions Prescriptions: New metoprolol tartrate 25 mg Tablet 12.5 mg PO BID 30 Days Qty: 30 0RF Eliquis 5 mg Tablet 5 mg PO BID 30 Days Qty: 60 0RF Continued gabapentin 800 mg tablet 800 mg PO TID baclofen 20 mg tablet 20 mg PO Q8H levothyroxine 50 mcg tablet 50 mcg PO DAILY Patient Comments: take 1 tablet by mouth once daily oxycodone 10 mg tablet 10 mg PO Q6H PRN Patient Comments: take 1 tab q6 PRN for pain lisinopril 5 mg tablet 5 mg PO DAILY Qty: 30 11RF Hold Instructions: Hold for 7 days. cholecalciferol (vitamin D3) 5,000 UNIT tablet 5,000 unit PO DAILY Patient Comments: supplement dextromethorphan-guaifenesin [Mucinex DM] 60-1,200 mg tablet extended release 12 hr 1 tab PO Q12H 7 Days Qty: 14 0RF clopidogrel 75 mg tablet 75 mg PO DAILY Qty: 90 3RF Referrals / Follow Up: Daron Benton MD [Primary Care Provider] - 11/27/23 11:00 am Betsey Lindquist PA [Med Staff - Adv Practice Prof] - Within 1 Month Disposition Disposition (needs filled in before D/C Order can be placed): Home, Self Care 11/21/23 0907<Electronically signed by Sachin Murillo MD>Sachin Murillo MD CC: Dr. Sommer Resendiz MD; Dr. Daron Benton MD ~ Signed [facility] Work Phone: 1(195) 466-767901-02-2024 Progress note Author Sachin Murillo [facility] November 20, 2023 10:23am Note Date/Time November 20, 2023 10 :23am [facility] Medical Records Department [address] [place] [address] Progress Note - Hospitalist 11/20/23 1021 MR#: [id number] Acct: [id number] Name: ANGÉLICA YO Rep #:[id number] 6 : 1955 68 From: Sachin chan MD PCP: Dr. Daron Benton MD Status:ADM IN Location: [place] [address] Subjective Subjective Still feels fatigued and unwell secondary to her flu. She does admit to taking Pepto-Bismol which explains why her stool was black and her hemoglobin stable Objective Data Objective Data Vital Signs: Vital Signs Temp Pulse Resp BP Pulse Ox O2 Del Method 98.9 F 74 16 140/69 H 94 Room Air 11/20/23 09:10 11/20/23 09:18 11/20/23 09:10 11/20/23 09:18 11/20/23 09:10 11/20/23 09:10 Oxygen Delivery Method Room Air Weight: 122 lb 5.705 oz Body Mass Index (BMI) 20.3 Intake & Output: Intake and Output for Last 24 Hours 11/19/23 11/20/23 11/21/23 03:59 03:59 03:59 Intake Total 1390 / 1390 2210 / 2210 Balance 1390 / 1390 2210 / 2210 Lab / Micro Data 11/20/23 06:30 11/20/23 06:30 Labs: Laboratory Results - last 24 hr 11/20/23 06:30: WBC 8.1, RBC 3.89 L, Hgb 11.1 L, Hct 33.9 L, MCV 87.1, MCH 28.5,MCHC 32.7, RDW Std Deviation 48.3 H, RDW Coeff of David 15.1 H, Plt Count 131 L, MPV 9.9, Immature Gran % (Auto) 1.900 H, Neut % (Auto) 81.9 H, Lymph % (Auto) 5.9 L, Mesa % (Auto) 9.8, Eos % (Auto) 0.1, Baso % (Auto) 0.4, Absolute Neuts (auto) 6.6, Absolute Lymphs (auto) 0.48 L, Nucleated RBC % 0, Differential Comment COMMENT, Sodium 137, Potassium 3.4 L, Chloride 106, Carbon Dioxide 21.0, Anion Gap 10, BUN 10, Creatinine 0.87, Estim Creat Clear Calc 53.47, Est GFR (MDRD) Af Amer 83, Est GFR (MDRD) Non-Af 69, BUN/Creatinine Ratio 11.5, Glucose 94, Calcium 8.0 L, Troponin I High Sens 26 Micro: Microbiology 11/18/23 15:24 Stool Stool Occult Blood (CARMEN) - Final Radiography Diagnostic Testing: Radiology Impression Echocardiogram 11/18/23 16:04 Interpretation Summary Mild concentric left ventricular hypertrophy. The left ventricular ejection fraction is 70 %. Stage 2 diastolic dysfunction. Mild (1+) mitral valve insufficiency. Right ventricular systolic pressure estimated to be 55 mmHg. Ordering Physician: Sommer Resendiz Referring Physician: Daron Benton Performed By: Noa Peace, MELYCS, RVT Chest X-Ray 11/19/23 05:15 IMPRESSION: No significant interval change in focal opacity in the right mid chest, which may represent focal pneumonia or pulmonary nodule. Recommend follow-up to resolution. Electronically Signed: Angle Reynoso MD at 14:56 EST Reading Location ID and State: [facility] / [place] Tel , Service support , Physical Exam Narrative General: Alert, Oriented x3, Cooperative, No apparent distress HEENT: Atraumatic, PERRLA, EOMI, Normocephalic Oral: Moist Mucosa Neck: Supple, No JVD Lungs: Diminished, Normal air movement, No rhonchi, No wheeze, No rales Cardiovascular: Regular rate, Regular Rhythm, Normal S1, Normal S2, No murmurs Abdomen: Soft, Non Tender, Non-Distended, No Hepato-splenomegaly Extremities: No edema, Capillary Refill Less than 3 Seconds Skin: No rashes, No breakdown Musculoskeletal: No Tenderness to Palpation of Joints or Extremities Neurological: Cranial nerves II-XII grossly intact, Motor Exam 5/5 strength throughout, Sensory exam intact to light touch and pain Psych/Mental Status: Normal Affect, Appropriate Assessment & Plan Assessment/Plan (1) Atrial fibrillation: PLAN: Plan 1. New onset paroxysmal A-fib/history of CVA/PAD with iliac stent/history of TIA/nonobstructive CAD/HTN/HLD ? Continue with metoprolol but she was having dark stools so we will hold off onany anticoagulation at this time, if her hemoglobin remained stable can continuewith PPI and place her on anticoagulation ? It does appear that her A-fib has resolved ? Can resume her home blood pressure medications ? Given her history of TIA can resume her Plavix, stool occult was negative and hemoglobin is stable ? Echo with an EF of 70% and stage II diastolic dysfunction with an RVSP of 55 mmHg ? Continue with Eliquis ? If hemoglobin stays stable we will plan for discharge 2. Dark stools ? Fecal occult is negative for blood, this is due to Pepto-Bismol due to her flu ? Will continue to monitor her hemoglobin but will allow her to eat 3. Recent influenza A ? This is likely the main source of her not feeling well ? She is about 8 days out from symptom onset can take out of precautions 4. MS/chronic pain ? Not on any aggressive medications ? Can resume her home chronic pain medications 5. Hypothyroidism ? Stable ? TSH is 1.42 ? Continue with her home Synthroid 6. Psoriatic arthritis ? Continue medications for her chronic pain she is not on any disease modifying agents DVT: SCDs Charges/Coding Visit Charges Inpatient E&M: 60022 Subs Hosp L2 11/20/23 1023 <Electronically signed by Sachin Murillo MD> Cosigner Signature (if applicable): CC: ~ Signed [facility] Work Phone: 1(558) 907-701801-01-2024 Progress note Author Sachin Murillo [facility] November 19, 2023 10:52am Note Date/Time November 19, 2023 10 :52am [facility] Medical Records Department [address] [address] Progress Note - Hospitalist 11/19/23 1046 MR#: [id number] Acct: [id number] Name: ANGÉLICA YO Rep #:[id number] 6 : 1955 68 From: Sachin chan MD PCP: Dr. Daron Benton MD Status:ADM IN Location: [place] [address] Subjective Subjective Doing well, no issues overnight. She is not requiring any supplemental oxygen she just feels weak and worn out Objective Data Objective Data Vital Signs: Vital Signs Temp Pulse Resp BP Pulse Ox O2 Del Method 97.8 F 78 20 H 154/91 H 98 Room Air 11/19/23 08:21 11/19/23 08:43 11/19/23 08:43 11/19/23 08:37 11/19/23 08:43 11/19/23 08:46 Oxygen Delivery Method Room Air Weight: 121 lb 4.068 oz Body Mass Index (BMI) 20.2 Intake & Output: Intake and Output for Last 24 Hours 11/18/23 11/19/23 11/20/23 03:59 03:59 03:59 Intake Total 1390 / 1390 1170 / 1170 Balance 1390 / 1390 1170 / 1170 Lab / Micro Data 11/19/23 05:32 11/19/23 05:32 Labs: Laboratory Results - last 24 hr 11/18/23 11:57: WBC 5.5, RBC 4.56, Hgb 12.9, Hct 39.1, MCV 85.7, MCH 28.3, MCHC 33.0, RDW Std Deviation 46.5 H, RDW Coeff of David 14.8 H, Plt Count 123 L, MPV 10.3, Immature Gran % (Auto) 0.700, Neut % (Auto) 66.4, Lymph % (Auto) 19.4, Mesa % (Auto) 12.9 H, Eos % (Auto) 0.2, Baso % (Auto) 0.4, Absolute Neuts (auto)3.7, Absolute Lymphs (auto) 1.07, Nucleated RBC % 0, Sodium 140, Potassium 3.5, Chloride 110 H, Carbon Dioxide 22.0, Anion Gap 8, BUN 12, Creatinine 0.99, EstimCreat Clear Calc 48.26, Est GFR (MDRD) Af Amer 72, Est GFR (MDRD) Non-Af 59 L, BUN/Creatinine Ratio 12.2, Glucose 116 H, Calcium 8.0 L, Magnesium 1.8, Total Bilirubin 0.40, AST 17, ALT 18, Alkaline Phosphatase 93, Troponin I High Sens 60H, Total Protein 6.5, Albumin 3.1 L, Globulin 3.4, Albumin/Globulin Ratio 0.9 11/18/23 13:28: Urine Color Yellow, Urine Clarity Clear, Urine pH 6.0, Ur Specific Flaxton 1.015, Urine Protein Negative, Urine Glucose (UA) Normal, UrineKetones 5 H, Urine Occult Blood 25 H, Urine Nitrite Negative, Urine Bilirubin Negative, Urine Urobilinogen Normal, Ur Leukocyte Esterase 25 H, Urine RBC 0-5 SEEN, Urine WBC 0-5 SEEN, Ur Squamous Epith Cells 5-10 SEEN, Urine Bacteria 1+, Urine Mucus 0 SEEN 11/18/23 17:07: Hgb 11.4 L, Hct 34.4 L 11/18/23 18:00: Troponin I High Sens 42 11/18/23 21:10: Hgb 11.1 L, Hct 33.0 L 11/19/23 01:06: Hgb 10.3 L, Hct 31.1 L 11/19/23 05:32: WBC 4.3 L, RBC 3.69 L, Hgb 10.8 L, Hct 32.4 L, MCV 87.8, MCH 29.3, MCHC 33.3, RDW Std Deviation 49.0 H, RDW Coeff of David 15.2 H, Plt Count 113 L, MPV 10.5, Immature Gran % (Auto) 1.200 H, Neut % (Auto) 67.7, Lymph % (Auto) 17.1 L, Mesa % (Auto) 13.3 H, Eos % (Auto) 0.2, Baso % (Auto) 0.5, Absolute Neuts (auto) 2.9, Absolute Lymphs (auto) 0.73 L, Nucleated RBC % 0, Sodium 140, Potassium 3.6, Chloride 111 H, Carbon Dioxide 23.0, Anion Gap 6, BUN9, Creatinine 0.85, Estim Creat Clear Calc 54.12, Est GFR (MDRD) Af Amer 85, EstGFR (MDRD) Non-Af 70, BUN/Creatinine Ratio 10.5, Glucose 83, Calcium 7.8 L, Total Bilirubin 0.50, AST 17, ALT 16, Alkaline Phosphatase 79, Total Protein 5.5L, Albumin 2.6 L, Globulin 2.9, Albumin/Globulin Ratio 0.9, Triglycerides 116, Cholesterol 116, LDL Cholesterol 63, VLDL Cholesterol 23, HDL Cholesterol 30 L, TSH 1.42, Free T4 1.66 H Micro: Microbiology 11/18/23 15:24 Stool Stool Occult Blood (CARMEN) - Final Radiography Diagnostic Testing: Radiology Impression Chest X-Ray 11/18/23 11:52 IMPRESSION: Small focus of acute or chronic inflammatory change right upper lobe. Minor bibasilar atelectasis. Electronically Signed: Chago Mcintyre MD at 13:04 EST , Physical Exam Narrative General: Alert, Oriented x3, Cooperative, No apparent distress HEENT: Atraumatic, PERRLA, EOMI, Normocephalic Oral: Moist Mucosa Neck: Supple, No JVD Lungs: Diminished, Normal air movement, No rhonchi, No wheeze, No rales Cardiovascular: Regular rate, Regular Rhythm, Normal S1, Normal S2, No murmurs Abdomen: Soft, Non Tender, Non-Distended, No Hepato-splenomegaly Extremities: No edema, Capillary Refill Less than 3 Seconds Skin: No rashes, No breakdown Musculoskeletal: No Tenderness to Palpation of Joints or Extremities Neurological: Cranial nerves II-XII grossly intact, Motor Exam 5/5 strength throughout, Sensory exam intact to light touch and pain Psych/Mental Status: Normal Affect, Appropriate Assessment & Plan Assessment/Plan (1) Atrial fibrillation: PLAN: Plan 1. New onset paroxysmal A-fib/history of CVA/PAD with iliac stent/history of TIA/nonobstructive CAD/HTN/HLD ? Continue with metoprolol but she was having dark stools so we will hold off onany anticoagulation at this time, if her hemoglobin remained stable can continuewith PPI and place her on anticoagulation ? It does appear that her A-fib has resolved ? Can resume her home blood pressure medications ? Given her history of TIA can resume her Plavix, stool occult was negative and hemoglobin is stable ? Echocardiogram is pending 2. Dark stools ? Fecal occult is negative for blood ? Will continue to monitor her hemoglobin but will allow her to eat 3. Recent influenza A ? This is likely the main source of her not feeling well ? She is about 8 days out from symptom onset can take out of precautions 4. MS/chronic pain ? Not on any aggressive medications ? Can resume her home chronic pain medications 5. Hypothyroidism ? Stable ? TSH is 1.42 ? Continue with her home Synthroid 6. Psoriatic arthritis ? Continue medications for her chronic pain she is not on any disease modifying agents DVT: SCDs Charges/Coding Visit Charges Inpatient E&M: 20578 Subs Hosp L2 11/19/23 1052 <Electronically signed by Sachin Murillo MD> Cosigner Signature (if applicable): CC: ~ Signed [facility] Work Phone: [phone]) 456-799912-31-2023 History and physical note Author Sommer Resendiz [facility] November 18, 2023 8:55pm Note Date/Time November 18, 2023 2:14pm [facility] Medical Records Department [address] [place] [id number] H&P Exam - Hospitalist 11/18/23 1413 MR#: [id number] Acct: [id number] Name: ANGÉLICA YO Rep #:[id number] : 1955 68 From: Sommer Resendiz MD PCP: Dr. Daron Benton MD Status:ADM IN Location: [place] [address] HPI - General General Date of Admission: 11/18/23 Date of Service: 11/18/23 Chief Complaint: Fatigue, malaise, dark stools. HPI Narrative The patient is a 68 y/o F w/ PMHx: Hx Cerebral aneurysm, Chronic pain syndrome, HTN, HLD, Hx TIA, Multiple Sclerosis, Nonobstructive CAD, Psoriatic arthritis, PAD, NS SVT, GERD, Hypothyroidism, Carotid disease, Tobacco use, admitted 11/15/23- 11/16/23 with influenza A and acute kidney injury associated to now represents to the [facility] ED on 11/18/23 with history of initially feeling improved due to discharge however the last 24 hours she has been feeling worse with noteddark stools on Plavix with no history of previous history of GI bleed with no abdominal pain with still some mild persistent nausea mostly when she moves quickly but no emesis currently with generalized discomfort and noted soreness around her chest and upper back prompting eventual ED reevaluation. Workup in the ED included T97.7, heart rate 106, BP 171/101, respiratory rate 20, 96% on room air, CBC with WBC 5.5, hemoglobin 12.9, platelet 123 without marked shift, CMP with glucose 116, BUN/creatinine 12/0.99, GFR 59, hepatic profile not markedappearing, troponin 60 with recent presentation with no troponin obtained of note and last noted 10/05/2023 troponin 8, urinalysis with specific remedy 1.015, ketone 5, occult blood 25, negative nitrate, leukocyte esterase 25 with no marked urine WBCs with 5-10 squamous epithelial cells this poor sample with 1+ bacteria noted, chest x-ray with a small focus of acute or chronic inflammatory change right upper lobe and minor bibasilar atelectasis, EKG with new onset atrial fibrillation with rate 102 with no acute evidence of ischemia. In the ED patient administered 1 L normal saline and Zofran 4 mg IV x 1. PFSH Medical History Angina pectoris Bilateral carotid artery stenosis Chronic pain syndrome Coronary artery disease Essential (primary) hypertension Fatty liver GERD (gastroesophageal reflux disease) Goiter History of transient ischemic attack (TIA) HLD (hyperlipidemia) Hypothyroidism Multiple sclerosis Nonobstructive atherosclerosis of coronary artery Nonsustained paroxysmal supraventricular tachycardia Osteoarthritis Osteoporosis Peripheral vascular occlusive disease Psoriasis Psoriatic arthritis Smoker Thrombocytopenia TIA (transient ischemic attack) Home Medications cholecalciferol (vitamin D3) 125 mcg (5,000 unit) tablet 5,000 unit PO DAILY supplement 12/16/13 [History Last Taken 11/17/23] gabapentin 800 mg tablet 800 mg PO TID MS 07/16/18 [History Last Taken 11/18/23] baclofen 20 mg tablet 20 mg PO Q8H MS 08/11/21 [History Last Taken 11/18/23] levothyroxine 50 mcg tablet 50 mcg PO DAILY thyroid 08/11/21 [History Last Taken 11/18/23] oxycodone 10 mg tablet 10 mg PO Q6H PRN pain 05/24/23 [History Last Taken 11/18/23] clopidogrel 75 mg tablet 75 mg PO DAILY dose increased, pt is OUT of med, pleasefill #90 TABLETS 06/01/23 [Rx Last Taken 11/18/23] lisinopril 5 mg tablet 5 mg PO DAILY blood pressure #30 tabs 11/02/23 [Rx Last Taken 11/18/23] dextromethorphan-guaifenesin ER 60 mg-1,200 mg tab,extend release,12hr (Mucinex DM) 1 tab PO Q12H cough/congest 7 days #14 tabs 11/16/23 [Rx Last Taken 11/17/23] Allergy/AdvReac Type Severity Reaction Status Date / Time colestipol [From Colestid] Allergy Mild unknown Verified 11/15/23 11:27 pregabalin [From Lyrica] Allergy Mild Hives Verified 11/15/23 11:27 amitriptyline Allergy Rash Verified 11/15/23 11:27 temazepam [From Restoril] AdvReac Mild Nausea/Vom/ Verified 11/15/23 11:27 Diarrhea Antihistamines - Alkylamine AdvReac Nausea/Vom/ Verified 11/15/23 11:27 Diarrhea Antihistamines - Ethanolamine AdvReac Nausea/Vom/ Verified 11/15/23 11:27 Diarrhea Antihistamines - AdvReac Nausea/Vom/ Verified 11/15/23 11:27 Ethylenediamine Diarrhea Antihistamines - Piperazine AdvReac Nausea/Vom/ Verified 11/15/23 11:27 Diarrhea Antihistamines - Piperidine AdvReac Nausea/Vom/ Verified 11/15/23 11:27 Diarrhea aspirin AdvReac I'M ON Verified 11/15/23 11:27 BLOOD THINNERS codeine AdvReac Nausea Verified 11/15/23 11:27 Corticosteroids AdvReac Upset Verified 11/15/23 11:27 (Glucocorticoids) Stomach morphine AdvReac Nausea Verified 11/15/23 11:27 Idgdepk-YNQ-AhL Reductase AdvReac Nausea Verified 11/15/23 11:27 Inhibitor [Lqetqnc-Nnj-Aun Reductase Inhibitor] Family History Mother Cancer CAD (coronary artery disease) Brain tumor Grandfather CVA (cerebral vascular accident) Father CAD (coronary artery disease) Ruptured abdominal aortic aneurysm (AAA) Sister Brain aneurysm Surgical History Brain aneurysm Fracture of right lower leg H/O hemorrhoidectomy H/O: History of angioplasty of peripheral vessel History of angioplasty of peripheral vessel (07/11/19) History of appendectomy History of section History of cholecystectomy History of hemorrhoidectomy History of hysterectomy History of left breast biopsy History of left heart catheterization (01/25/15) History of left-sided carotid endarterectomy History of partial thyroidectomy (11/30/05) History of right-sided carotid endarterectomy S/P coil embolization of cerebral aneurysm S/P hysterectomy S/P insertion of iliac artery stent S/P thyroidectomy Stenosis of left subclavian artery Social History household members: none Smoking Status: Former smoker alcohol intake: never caffeine: Yes Type: coffee and tea ROS ROS Narrative Admission Review of Systems: CONSTITUTIONAL: No weight loss, + weakness or fatigue. No further elevated T/chills. HEENT: Eyes: No visual loss, blurred vision, double vision or yellow sclerae. Ears, Nose, Throat: No hearing loss, sneezing, congestion, runny nose or sore throat. SKIN: No rash or itching, lesions, wounds. CARDIOVASCULAR: No chest pain, chest pressure or chest discomfort, palpitations,edema, orthopnea, syncopal events. RESPIRATORY: + Cough, non-productive. No marked shortness of breath, wheezing, hemoptysis. GASTROINTESTINAL: + anorexia, nausea without emesis, soft stools, dark appearingstools. No abdominal pain, andreas melena, BRBPR. GENITOURINARY: No dysuria, frequency, urgency or retention. NEUROLOGICAL: + Underlying MS and uses walker, chronic debility/lower extremity weakness. No headache, syncope, paralysis, ataxia, numbness or tingling in the extremities, seizure. MUSCULOSKELETAL: + muscle, back pain, joint pain or stiffness. HEMATOLOGIC: No anemia, bleeding or bruising. LYMPHATICS: No enlarged nodes. No history of splenectomy. PSYCHIATRIC: No history of depression or anxiety. ENDOCRINOLOGIC: No reports of sweating. + cold or heat intolerance. No polyuria or polydipsia. ALLERGIES: + Hx of hives. Vital Signs Vital Signs Vital Signs: 11/18/23 11:43 11/18/23 11:47 Temperature 97.7 F L Temperature Source Temporal Pulse Rate 106 H Respiratory Rate 20 H Respiratory Effort Short of Breath Blood Pressure 171/101 H Blood Pressure Mean 124 Pulse Ox 96 Oxygen Delivery Method Room Air Weight Weight: 126 lb 1.671 oz Body Mass Index (BMI) 20.9 Physical Exam Narrative Physical Examination: General: Awake, alert, oriented x 3 and cooperative, laying in the ED bed, fatigued and ill appearing. Skin: Normal color, normal turgor, no icterus, no cyanosis. HEENT: AT/NC, EOMI, PERRLA, dry MM, no carotid bruits or JVD noted. Lungs: Diminished, > bases, dry cough occasiona, no rales, ronchi or wheezing. Heart: Irregular irregular; no gallop, rub audible. Abdomen: Soft, NTTP, ND, normal BS, no HSM. Extremities: No cyanosis, clubbing, or edema. Neurological: Patient awake, alert, oriented as noted, cognitive function intact; pupils equally reactive to light and accommodation, cranial nerves grossly normal, moving all 4 extremities but does have chronic debility/weaknesswith underlying MS, no markedly severe noted contractures, strength moderately to severely globally decreased secondary to acute presentation compounded by underlying comorbidities. Psychiatric: Affect appears flat, fatigued, no acute evidence of depressive or anxiety feelings. Results Lab / Micro Data 11/18/23 17:07 11/18/23 11:57 Labs: Laboratory Results - last 24 hr 11/18/23 11:57: WBC 5.5, RBC 4.56, Hgb 12.9, Hct 39.1, MCV 85.7, MCH 28.3, MCHC 33.0, RDW Std Deviation 46.5 H, RDW Coeff of David 14.8 H, Plt Count 123 L, MPV 10.3, Immature Gran % (Auto) 0.700, Neut % (Auto) 66.4, Lymph % (Auto) 19.4, Mesa % (Auto) 12.9 H, Eos % (Auto) 0.2, Baso % (Auto) 0.4, Absolute Neuts (auto)3.7, Absolute Lymphs (auto) 1.07, Nucleated RBC % 0, Sodium 140, Potassium 3.5, Chloride 110 H, Carbon Dioxide 22.0, Anion Gap 8, BUN 12, Creatinine 0.99, EstimCreat Clear Calc 48.26, Est GFR (MDRD) Af Amer 72, Est GFR (MDRD) Non-Af 59 L, BUN/Creatinine Ratio 12.2, Glucose 116 H, Calcium 8.0 L, Total Bilirubin 0.40, AST 17, ALT 18, Alkaline Phosphatase 93, Troponin I High Sens 60 H, Total Protein 6.5, Albumin 3.1 L, Globulin 3.4, Albumin/Globulin Ratio 0.9 11/18/23 13:28: Urine Color Yellow, Urine Clarity Clear, Urine pH 6.0, Ur Specific Flaxton 1.015, Urine Protein Negative, Urine Glucose (UA) Normal, UrineKetones 5 H, Urine Occult Blood 25 H, Urine Nitrite Negative, Urine Bilirubin Negative, Urine Urobilinogen Normal, Ur Leukocyte Esterase 25 H, Urine RBC 0-5 SEEN, Urine WBC 0-5 SEEN, Ur Squamous Epith Cells 5-10 SEEN, Urine Bacteria 1+, Urine Mucus 0 SEEN Imagaing Radiology Impression Chest X-Ray 11/18/23 11:52 IMPRESSION: Small focus of acute or chronic inflammatory change right upper lobe. Minor bibasilar atelectasis. Electronically Signed: Chago Mcintyre MD at 13:04 EST Reading Location ID and State: [address] [place] [address] Tel , Service support , Assessment & Plan Assessment/Plan (1) Atrial fibrillation: PLAN: Plan The patient is a 68 y/o F w/ PMHx: Hx Cerebral aneurysm, Chronic pain syndrome, HTN, HLD, Hx TIA, Multiple Sclerosis, Nonobstructive CAD, Psoriatic arthritis, PAD, NS SVT, GERD, Hypothyroidism, Carotid disease, Tobacco use, admitted 11/15/23- 11/16/23 with influenza A and acute kidney injury associated to now represents to the [facility] ED on 11/18/23 with history of initially feeling improved due to discharge however the last 24 hours she has been feeling worse with noteddark stools on Plavix with no history of previous history of GI bleed with no abdominal pain with still some mild persistent nausea mostly when she moves quickly but no emesis currently with generalized discomfort and noted soreness around her chest and upper back prompting eventual ED reevaluation. #1. Paroxsymal atrial fibrillation w/ indeterminate cardiac enzyme complicated by recent presentation #2, #3: EKG in ED w/ atrial fibrillation with rate 102 without acute evidence of ischemia. Will admit to PCU, maintain on telemetry, obtain cardiac enzyme serial set, obtain magnesium level, obtain ECHO, obtain TSH level. Will add low-dose beta-elli therapy. Patient is chronically on Plavix and given complaint of recent dark schools will defer any concept of anticoagulation at this time pending dark stool assessment. #2. Atypical dark appearing stools concerning for possible Acute GI Bleed: Admission Hgb 12.9, recent presentation with initial hemoglobin 13.7 decreased down to 12.2 and now back up to 12.9, unconfirmed bleed, stool guaiac has been requested, will maintain on IV fluids, will obtain serial H&H's, given history in the interim we will continue Plavix but defer anticoagulation, maintain on IVPPI, allow clears with n.p.o. status after midnight if positive stool guaiac andagain if positive will request GI involvement. #3. Recent Influenza A Viral Syndrome with associated hypotension and GI losseswith nausea/emesis/diarrhea: Recent presentation CXR in the ED w/ questionable evolving left lower lobe pneumonia with repeat chest x-ray currently with acute on chronic inflammatory change right upper lobe and minor bibasilar atelectasis. Patient had been out from her symptoms for a decent length of time thus Tamifluhad been deferred. Will continue to judiciously hydrate especially given possible GI bleed component and given evolving chest x-rays may consider repeat in a.m., procalcitonin requested, may initiate antibiotic therapy if suspicion arises for developing pneumonia. #4. Recent Acute kidney injury with Acute Hyponatremia/Hypochloremia of Hypovolemic nature on CKD stage III resolved now: Admission BUN/creatinine 12/0.99,GFR 59, baseline 0.8-1.0, improved and at baseline currently. #5. Chronic pain syndrome: Given CHRISTOPHER resolution we will continue patient home gabapentin, baclofen and narcotic pain regimen however low threshold to hold forany sedation or renal function changes. W #6. Carotid disease: Status post right CEA, continue patient home Plavix regimen, will continue patient hypertensive regimen, noted statin intolerance/allergy. #7. PAD: Status post iliac artery stent previously, continue patient home Plavix regimen, continue home hypertensive regimen, noted statin intolerance/allergy. #8. Hx TIA: Will continue patient home Plavix regimen, continue home hypertensive regimen and noted statin intolerance/allergy. #9. Nonobstructive CAD: Will continue patient home Plavix regimen, continue home hypertensive regimen, noted statin intolerance/allergy. #10. Tobacco Abuse: Encouraged cessation, inpatient consultation per RT, NR if desired. #11. Multiple sclerosis: From current list not on aggressive regimen, only noted to be on gabapentin and also on baclofen, will continue both. Encourage continued outpatient follow-up with neurology. PT/OT/case management consulted for discharge planning. #12. Psoriatic arthritis: Prior was on prednisone, not current taking. Also, asnoted on chronic pain regimen which will be continued given resolution of previously CHRISTOPHER. #13. Hypertension: We will continue patient home lisinopril, currently not on any beta-elli therapy but given presentation as noted adding lower dose metoprolol, as needed IV hydralazine. #14. Hyperlipidemia: Noted statin allergy, defer to outpatient. #15. Hypothyroidism: History of previous goiter status post partial thyroidectomy, continue home synthroid regimen, TSH and free T4 requested. #16. History cerebral aneurysm: Status post coil embolization. #17. DVT prophylaxis: SCDs given possible GI bleed component. #18. CODE status: Patient HCPOA and living will are not in place but she notes her sons would be her decisions makers if she was unable. Full Code status. Charges/Coding Visit Charges Inpatient E&M: 79494 Init Hosp L3 11/18/232054 <Electronically signed by Sommer Resendiz MD> Cosigner Signature (if applicable): CC: Dr. Sommer Resendiz MD; Dr. Daron Benton MD~ Signed [facility] Work Phone: [phone]) 331-759812-31-2023 Discharge summary Author Michele Kebede [facility] November 18, 2023 3:08pm Note Date/Time November 18, 2023 12:03pm [facility] Medical Records Department [address] [place] [address] Emergency Department Summary 11/18/23 MR#: [id number] Acct: [id number] Name: ANGÉLICA YO Rep #:[id number] : 1955 68 From: Michele Kebede MD PCP: Dr. Daron Benton MD Status:REG ER Location: ED HPI History of Present Illness Chief Complaint: Weakness Informant: patient Narrative Narrative: Patient presents with multiple complaints. She started with some cough myalgias about 7 days ago. She was diagnosed with influenza A. She was admitted here for generalized weakness hyponatremia. She states when she went home she was feeling a little bit better. But now she feels worse again. She states that she has had some really dark stools for several days. Evidently this started in the hospital but she did not tell anyone. No red stool. She is on Plavix. No history of GI bleed. She is not having abdominal pain. She still does get some nausea. Mostly is when she sitsup quickly. But she is not vomiting now. She also complains of some generalized soreness around her chest and upper back. She has never had heart disease but she has had multiple vascular problems including peripheral artery disease and she has had carotid endarterectomies. When we get the EKG, we asked and she states she has never had atrial fibrillation. [facility] Medical History Angina pectoris Bilateral carotid artery stenosis Chronic pain syndrome Coronary artery disease Essential (primary) hypertension Fatty liver GERD (gastroesophageal reflux disease) Goiter History of transient ischemic attack (TIA) HLD (hyperlipidemia) Hypothyroidism Multiple sclerosis Nonobstructive atherosclerosis of coronary artery Nonsustained paroxysmal supraventricular tachycardia Osteoarthritis Osteoporosis Peripheral vascular occlusive disease Psoriasis Psoriatic arthritis Smoker Thrombocytopenia TIA (transient ischemic attack) Home Medications cholecalciferol (vitamin D3) 125 mcg (5,000 unit) tablet 5,000 unit PO DAILY supplement 12/16/13 [History Last Taken 07/16/19] gabapentin 800 mg tablet 800 mg PO TID MS 07/16/18 [History Last Taken 07/16/19] baclofen 20 mg tablet 20 mg PO Q8H 08/11/21 [History Last Taken 01/18/22] levothyroxine 50 mcg tablet 50 mcg PO DAILY 08/11/21 [History Last Taken 01/18/22] oxycodone 10 mg tablet 10 mg PO Q6H PRN 05/24/23 [History Last Taken Unknown] clopidogrel 75 mg tablet 75 mg PO DAILY dose increased, pt is OUT of med, pleasefill #90 TABLETS 06/01/23 [Rx Last Taken Unknown] lisinopril 5 mg tablet 5 mg PO DAILY #30 tabs 11/02/23 [Rx Last Taken Unknown] dextromethorphan-guaifenesin ER 60 mg-1,200 mg tab,extend release,12hr (Mucinex DM) 1 tab PO Q12H 7 days #14 tabs 11/16/23 [Rx Last Taken Unknown] Allergy/AdvReac Type Severity Reaction Status Date / Time colestipol [From Colestid] Allergy Mild unknown Verified 11/15/23 11:27 pregabalin [From Lyrica] Allergy Mild Hives Verified 11/15/23 11:27 amitriptyline Allergy Rash Verified 11/15/23 11:27 temazepam [From Restoril] AdvReac Mild Nausea/Vom/ Verified 11/15/23 11:27 Diarrhea Antihistamines - Alkylamine AdvReac Nausea/Vom/ Verified 11/15/23 11:27 Diarrhea Antihistamines - Ethanolamine AdvReac Nausea/Vom/ Verified 11/15/23 11:27 Diarrhea Antihistamines - AdvReac Nausea/Vom/ Verified 11/15/23 11:27 Ethylenediamine Diarrhea Antihistamines - Piperazine AdvReac Nausea/Vom/ Verified 11/15/23 11:27 Diarrhea Antihistamines - Piperidine AdvReac Nausea/Vom/ Verified 11/15/23 11:27 Diarrhea aspirin AdvReac I'M ON Verified 11/15/23 11:27 BLOOD THINNERS codeine AdvReac Nausea Verified 11/15/23 11:27 Corticosteroids AdvReac Upset Verified 11/15/23 11:27 (Glucocorticoids) Stomach morphine AdvReac Nausea Verified 11/15/23 11:27 Sahnqqm-AYQ-ClJ Reductase AdvReac Nausea Verified 11/15/23 11:27 Inhibitor [Jefyqfb-Icj-Yum Reductase Inhibitor] Family History Mother Cancer CAD (coronary artery disease) Brain tumor Grandfather CVA (cerebral vascular accident) Father CAD (coronary artery disease) Ruptured abdominal aortic aneurysm (AAA) Sister Brain aneurysm Surgical History Brain aneurysm Fracture of right lower leg H/O hemorrhoidectomy H/O: History of angioplasty of peripheral vessel History of angioplasty of peripheral vessel (07/11/19) History of appendectomy History of section History of cholecystectomy History of hemorrhoidectomy History of hysterectomy History of left breast biopsy History of left heart catheterization (01/25/15) History of left-sided carotid endarterectomy History of partial thyroidectomy (11/30/05) History of right-sided carotid endarterectomy S/P coil embolization of cerebral aneurysm S/P hysterectomy S/P insertion of iliac artery stent S/P thyroidectomy Stenosis of left subclavian artery Social History household members: none Smoking Status: Former smoker alcohol intake: never caffeine: Yes Type: coffee and tea ROS ROS ED ROS Narrative A complete review of systems was performed and is negative except as documented in the history of present illness. Some specific details below. Constitutional: She still has some chills. Highest temperature has been about 99. EYE: No discharge, visual complaints, or pain. ENT: No difficulty swallowing. No swelling. No pain. No reflux symptoms. CV: She describes some nonspecific heaviness in her chest off and on for the last day. This also occurs in her upper back. Is not tearing or ripping or severe. Respiratory: She is still coughing. She is bringing up a little bit of clear sputum. GI: No abdominal pain. But she has had some nausea without vomiting. She is also still having softer bowel movements. They are also black. Evidently they turn black before she started taking Pepto-Bismol. : No frequency dysuria or hematuria. Musculoskeletal: No recent trauma. She does have some diffuse myalgias. Skin: No rash. Nondiaphoretic. Neuro: No weakness or numbness. Endocrine: No polyuria or polydipsia. EXAM Physical Exam Narrative Exam Narrative: CONSTITUTIONAL: Patient is nontoxic in appearance. The patient looks comfortable. Work of breathing looks normal. HEENT: No notable trauma. Mucous membranes do look a bit dry. No sinus tenderness. No indication of pain with swallowing. EYES: No conjunctival injection. NECK: No JVD. Prior healed surgery from carotid endarterectomy. CARDIOVASCULAR: Mildly tachycardic and irregular. She has a history of a murmurbut I am not actually able to hear that now. RESPIRATORY: No respiratory distress. Breathing is unlabored. No wheezes. No rhonchi. No rales. No pain with a deep breath. No chest wall tenderness. GASTROINTESTINAL: Not distended. Bowel sounds are normal. No tenderness. No guarding. No rebound. No palpable mass. No bruit is heard. GENITOURINARY: No tenderness over the bladder. No CVA tenderness. MUSCULOSKELETAL: Atraumatic. No peripheral edema. NEUROLOGICAL: Patient is alert and appropriate. No focal deficit noted. SKIN: No noted rashes. No diaphoresis. PSYCHIATRIC: Patient is calm. Mood is appropriate. Const Vital Signs: 11/18/23 11:43 11/18/23 11:47 Temperature 97.7 F L Temperature Source Temporal Pulse Rate 106 H Respiratory Rate 20 H Respiratory Effort Short of Breath Blood Pressure 171/101 H Blood Pressure Mean 124 Pulse Ox 96 Oxygen Delivery Method Room Air MDM MDM MDM Narrative Medical decision making narrative: My independent interpretation is patient's single view chest x-ray shows normal abnormalities. Final reading was a small focus of acute or chronic inflammatorychange in the right upper lobe. Patient does not have symptoms of an acute pneumonia really. Patient's CBC is overall normal except minimally low platelets. Hemoglobin is stable. Patient's electrolytes show no marked elevated Patient's trip and is elevated at 60. Patient's liver function test are overall normal Patient's urine shows no sign of infection. Patient has now gone back into sinus rhythm at this moment. But she had chest pressure soreness across her back and slight increased dyspnea with atrial fibrillation and has an elevated troponin. She has a history of significant vascular disease although she has never had documented heart disease she tells me. I will also send off a guaiac study. I need to have standby and we will get this sent off. But with her above symptoms new onset fib and troponin I think she does need to come in the hospital Case was asked with hospitalist. Lab Data Attestation: I reviewed the patient's lab results. Labs: Laboratory Results - last 24 hr 11/18/23 11/18/23 11:57 13:28 WBC 5.5 RBC 4.56 Hgb 12.9 Hct 39.1 MCV 85.7 MCH 28.3 MCHC 33.0 RDW Std Deviation 46.5 H RDW Coeff of David 14.8 H Plt Count 123 L MPV 10.3 Immature Gran % (Auto) 0.700 Neut % (Auto) 66.4 Lymph % (Auto) 19.4 Mesa % (Auto) 12.9 H Eos % (Auto) 0.2 Baso % (Auto) 0.4 Absolute Neuts (auto) 3.7 Absolute Lymphs (auto) 1.07 Nucleated RBC % 0 Sodium 140 Potassium 3.5 Chloride 110 H Carbon Dioxide 22.0 Anion Gap 8 BUN 12 Creatinine 0.99 Estim Creat Clear Calc 48.26 Est GFR (MDRD) Af Amer 72 Est GFR (MDRD) Non-Af 59 L BUN/Creatinine Ratio 12.2 Glucose 116 H Calcium 8.0 L Total Bilirubin 0.40 AST 17 ALT 18 Alkaline Phosphatase 93 Troponin I High Sens 60 H Total Protein 6.5 Albumin 3.1 L Globulin 3.4 Albumin/Globulin Ratio 0.9 Urine Color Yellow Urine Clarity Clear Urine pH 6.0 Ur Specific [place] 1.015 Urine Protein Negative Urine Glucose (UA) Normal Urine Ketones 5 H Urine Occult Blood 25 H Urine Nitrite Negative Urine Bilirubin Negative Urine Urobilinogen Normal Ur Leukocyte Esterase 25 H Urine RBC 0-5 SEEN Urine WBC 0-5 SEEN Ur Squamous Epith Cells 5-10 SEEN Urine Bacteria 1+ Urine Mucus 0 SEEN Radiography Diagnostic Testing: Clinical Impression(s) from Imaging Studies Chest X-Ray 11/18/23 11:52 IMPRESSION: Small focus of acute or chronic inflammatory change right upper lobe. Minor bibasilar atelectasis. Electronically Signed: Chago Mcintyre MD at 13:04 EST , EKG Initial EKG: Comments: My independent interpretation of the patient's EKG shows atrial fibrillation with mildly tachycardic rate at 102. No ventricular ectopy. No acute ST elevation or depression. QRS duration and QTc are normal. Management Discussion w/another healthcare provider: Hospitalist Discharge Plan Dx/Rx/DC Orders Clinical Impression: Elevated troponin, New onset atrial fibrillation, Chest pressure, Influenza A Disposition Disposition: Acute Care Hospital [facility] What to do if you have Problems For any increased pain, shortness of breath, bleeding, nausea or vomiting, chestpain, or any unexpected problems, contact your Primary Care Provider. Call [facility] ([phone]) or report to the closest Emergency Room. Call 911 if necessary. 11/18/23 1508 <Electronically signed by Michele Kebede MD> Cosigner Signature (if applicable): CC: Dr. Daron Benton MD ~ Signed [facility] Work Phone: 1(600) 448-507912-31-2023 Discharge summary Author Michele Kebede [facility] November 18, 2023 3:08pm Note Date/Time November 18, 2023 12:03pm [facility] Medical Records Department [address] [place] [address] Emergency Department Summary 11/18/23 MR#: [id number] Acct: [id number] Name: ANGÉLICA YO Rep #:[id number] : 1955 68 From: Michele Kebede MD PCP: Dr. Daron Benton MD Status:REG ER Location: ED HPI History of Present Illness Chief Complaint: Weakness Informant: patient Narrative Narrative: Patient presents with multiple complaints. She started with some cough myalgias about 7 days ago. She was diagnosed with influenza A. She was admitted here for generalized weakness hyponatremia. She states when she went home she was feeling a little bit better. But now she feels worse again. She states that she has had some really dark stools for several days. Evidently this started in the hospital but she did not tell anyone. No red stool. She is on Plavix. No history of GI bleed. She is not having abdominal pain. She still does get some nausea. Mostly is when she sitsup quickly. But she is not vomiting now. She also complains of some generalized soreness around her chest and upper back. She has never had heart disease but she has had multiple vascular problems including peripheral artery disease and she has had carotid endarterectomies. When we get the EKG, we asked and she states she has never had atrial fibrillation. [facility] Medical History Angina pectoris Bilateral carotid artery stenosis Chronic pain syndrome Coronary artery disease Essential (primary) hypertension Fatty liver GERD (gastroesophageal reflux disease) Goiter History of transient ischemic attack (TIA) HLD (hyperlipidemia) Hypothyroidism Multiple sclerosis Nonobstructive atherosclerosis of coronary artery Nonsustained paroxysmal supraventricular tachycardia Osteoarthritis Osteoporosis Peripheral vascular occlusive disease Psoriasis Psoriatic arthritis Smoker Thrombocytopenia TIA (transient ischemic attack) Home Medications cholecalciferol (vitamin D3) 125 mcg (5,000 unit) tablet 5,000 unit PO DAILY supplement 12/16/13 [History Last Taken 07/16/19] gabapentin 800 mg tablet 800 mg PO TID MS 07/16/18 [History Last Taken 07/16/19] baclofen 20 mg tablet 20 mg PO Q8H 08/11/21 [History Last Taken 01/18/22] levothyroxine 50 mcg tablet 50 mcg PO DAILY 08/11/21 [History Last Taken 01/18/22] oxycodone 10 mg tablet 10 mg PO Q6H PRN 05/24/23 [History Last Taken Unknown] clopidogrel 75 mg tablet 75 mg PO DAILY dose increased, pt is OUT of med, pleasefill #90 TABLETS 06/01/23 [Rx Last Taken Unknown] lisinopril 5 mg tablet 5 mg PO DAILY #30 tabs 11/02/23 [Rx Last Taken Unknown] dextromethorphan-guaifenesin ER 60 mg-1,200 mg tab,extend release,12hr (Mucinex DM) 1 tab PO Q12H 7 days #14 tabs 11/16/23 [Rx Last Taken Unknown] Allergy/AdvReac Type Severity Reaction Status Date / Time colestipol [From Colestid] Allergy Mild unknown Verified 11/15/23 11:27 pregabalin [From Lyrica] Allergy Mild Hives Verified 11/15/23 11:27 amitriptyline Allergy Rash Verified 11/15/23 11:27 temazepam [From Restoril] AdvReac Mild Nausea/Vom/ Verified 11/15/23 11:27 Diarrhea Antihistamines - Alkylamine AdvReac Nausea/Vom/ Verified 11/15/23 11:27 Diarrhea Antihistamines - Ethanolamine AdvReac Nausea/Vom/ Verified 11/15/23 11:27 Diarrhea Antihistamines - AdvReac Nausea/Vom/ Verified 11/15/23 11:27 Ethylenediamine Diarrhea Antihistamines - Piperazine AdvReac Nausea/Vom/ Verified 11/15/23 11:27 Diarrhea Antihistamines - Piperidine AdvReac Nausea/Vom/ Verified 11/15/23 11:27 Diarrhea aspirin AdvReac I'M ON Verified 11/15/23 11:27 BLOOD THINNERS codeine AdvReac Nausea Verified 11/15/23 11:27 Corticosteroids AdvReac Upset Verified 11/15/23 11:27 (Glucocorticoids) Stomach morphine AdvReac Nausea Verified 11/15/23 11:27 Bmjyvri-VOY-MjL Reductase AdvReac Nausea Verified 11/15/23 11:27 Inhibitor [Epjsjly-Wpy-Tks Reductase Inhibitor] Family History Mother Cancer CAD (coronary artery disease) Brain tumor Grandfather CVA (cerebral vascular accident) Father CAD (coronary artery disease) Ruptured abdominal aortic aneurysm (AAA) Sister Brain aneurysm Surgical History Brain aneurysm Fracture of right lower leg H/O hemorrhoidectomy H/O: History of angioplasty of peripheral vessel History of angioplasty of peripheral vessel (07/11/19) History of appendectomy History of section History of cholecystectomy History of hemorrhoidectomy History of hysterectomy History of left breast biopsy History of left heart catheterization (01/25/15) History of left-sided carotid endarterectomy History of partial thyroidectomy (11/30/05) History of right-sided carotid endarterectomy S/P coil embolization of cerebral aneurysm S/P hysterectomy S/P insertion of iliac artery stent S/P thyroidectomy Stenosis of left subclavian artery Social History household members: none Smoking Status: Former smoker alcohol intake: never caffeine: Yes Type: coffee and tea ROS ROS ED ROS Narrative A complete review of systems was performed and is negative except as documented in the history of present illness. Some specific details below. Constitutional: She still has some chills. Highest temperature has been about 99. EYE: No discharge, visual complaints, or pain. ENT: No difficulty swallowing. No swelling. No pain. No reflux symptoms. CV: She describes some nonspecific heaviness in her chest off and on for the last day. This also occurs in her upper back. Is not tearing or ripping or severe. Respiratory: She is still coughing. She is bringing up a little bit of clear sputum. GI: No abdominal pain. But she has had some nausea without vomiting. She is also still having softer bowel movements. They are also black. Evidently they turn black before she started taking Pepto-Bismol. : No frequency dysuria or hematuria. Musculoskeletal: No recent trauma. She does have some diffuse myalgias. Skin: No rash. Nondiaphoretic. Neuro: No weakness or numbness. Endocrine: No polyuria or polydipsia. EXAM Physical Exam Narrative Exam Narrative: CONSTITUTIONAL: Patient is nontoxic in appearance. The patient looks comfortable. Work of breathing looks normal. HEENT: No notable trauma. Mucous membranes do look a bit dry. No sinus tenderness. No indication of pain with swallowing. EYES: No conjunctival injection. NECK: No JVD. Prior healed surgery from carotid endarterectomy. CARDIOVASCULAR: Mildly tachycardic and irregular. She has a history of a murmurbut I am not actually able to hear that now. RESPIRATORY: No respiratory distress. Breathing is unlabored. No wheezes. No rhonchi. No rales. No pain with a deep breath. No chest wall tenderness. GASTROINTESTINAL: Not distended. Bowel sounds are normal. No tenderness. No guarding. No rebound. No palpable mass. No bruit is heard. GENITOURINARY: No tenderness over the bladder. No CVA tenderness. MUSCULOSKELETAL: Atraumatic. No peripheral edema. NEUROLOGICAL: Patient is alert and appropriate. No focal deficit noted. SKIN: No noted rashes. No diaphoresis. PSYCHIATRIC: Patient is calm. Mood is appropriate. Const Vital Signs: 11/18/23 11:43 11/18/23 11:47 Temperature 97.7 F L Temperature Source Temporal Pulse Rate 106 H Respiratory Rate 20 H Respiratory Effort Short of Breath Blood Pressure 171/101 H Blood Pressure Mean 124 Pulse Ox 96 Oxygen Delivery Method Room Air MDM MDM MDM Narrative Medical decision making narrative: My independent interpretation is patient's single view chest x-ray shows normal abnormalities. Final reading was a small focus of acute or chronic inflammatorychange in the right upper lobe. Patient does not have symptoms of an acute pneumonia really. Patient's CBC is overall normal except minimally low platelets. Hemoglobin is stable. Patient's electrolytes show no marked elevated Patient's trip and is elevated at 60. Patient's liver function test are overall normal Patient's urine shows no sign of infection. Patient has now gone back into sinus rhythm at this moment. But she had chest pressure soreness across her back and slight increased dyspnea with atrial fibrillation and has an elevated troponin. She has a history of significant vascular disease although she has never had documented heart disease she tells me. I will also send off a guaiac study. I need to have standby and we will get this sent off. But with her above symptoms new onset fib and troponin I think she does need to come in the hospital Case was asked with hospitalist. Lab Data Attestation: I reviewed the patient's lab results. Labs: Laboratory Results - last 24 hr 11/18/23 11/18/23 11:57 13:28 WBC 5.5 RBC 4.56 Hgb 12.9 Hct 39.1 MCV 85.7 MCH 28.3 MCHC 33.0 RDW Std Deviation 46.5 H RDW Coeff of David 14.8 H Plt Count 123 L MPV 10.3 Immature Gran % (Auto) 0.700 Neut % (Auto) 66.4 Lymph % (Auto) 19.4 Mesa % (Auto) 12.9 H Eos % (Auto) 0.2 Baso % (Auto) 0.4 Absolute Neuts (auto) 3.7 Absolute Lymphs (auto) 1.07 Nucleated RBC % 0 Sodium 140 Potassium 3.5 Chloride 110 H Carbon Dioxide 22.0 Anion Gap 8 BUN 12 Creatinine 0.99 Estim Creat Clear Calc 48.26 Est GFR (MDRD) Af Amer 72 Est GFR (MDRD) Non-Af 59 L BUN/Creatinine Ratio 12.2 Glucose 116 H Calcium 8.0 L Total Bilirubin 0.40 AST 17 ALT 18 Alkaline Phosphatase 93 Troponin I High Sens 60 H Total Protein 6.5 Albumin 3.1 L Globulin 3.4 Albumin/Globulin Ratio 0.9 Urine Color Yellow Urine Clarity Clear Urine pH 6.0 Ur Specific Flaxton 1.015 Urine Protein Negative Urine Glucose (UA) Normal Urine Ketones 5 H Urine Occult Blood 25 H Urine Nitrite Negative Urine Bilirubin Negative Urine Urobilinogen Normal Ur Leukocyte Esterase 25 H Urine RBC 0-5 SEEN Urine WBC 0-5 SEEN Ur Squamous Epith Cells 5-10 SEEN Urine Bacteria 1+ Urine Mucus 0 SEEN Radiography Diagnostic Testing: Clinical Impression(s) from Imaging Studies Chest X-Ray 11/18/23 11:52 IMPRESSION: Small focus of acute or chronic inflammatory change right upper lobe. Minor bibasilar atelectasis. Electronically Signed: Chago Mcintyre MD at 13:04 EST , EKG Initial EKG: Comments: My independent interpretation of the patient's EKG shows atrial fibrillation with mildly tachycardic rate at 102. No ventricular ectopy. No acute ST elevation or depression. QRS duration and QTc are normal. Management Discussion w/another healthcare provider: Hospitalist Discharge Plan Dx/Rx/DC Orders Clinical Impression: Elevated troponin, New onset atrial fibrillation, Chest pressure, Influenza A Disposition Disposition: Acute Care Hospital [facility] What to do if you have Problems For any increased pain, shortness of breath, bleeding, nausea or vomiting, chestpain, or any unexpected problems, contact your Primary Care Provider. Call [facility] ([phone]) or report to the closest Emergency Room. Call 911 if necessary. 11/18/23 1508 <Electronically signed by Michele Kebede MD> Cosigner Signature (if applicable): CC: Dr. Daron Benton MD ~ Signed [facility] Work Phone: [phone] 639-812612-28-2023 History and physical note Author Sommer Resendiz [facility] November 15, 2023 3:44pm Note Date/Time November 15, 2023 3:14pm [facility] Medical Records Department [address] [place] [id number] H&P Exam - Hospitalist 11/15/23 1512 MR#: [id number] Acct: [id number] Name: ANGÉLICA YO Rep #:[id number] : 1955 68 From: Sommer Resendiz MD PCP: Dr. Daron Benton MD Status:ADM IN Location: [facility] [id number] HPI - General General Date of Admission: 11/15/23 Date of Service: 11/15/23 Chief Complaint: Poor intake, malaise, fatigue, weakness, N/V/D HPI Narrative The patient is a 68 y/o F w/ PMHx: Hx Cerebral aneurysm, Chronic pain syndrome, HTN, HLD, Hx TIA, Multiple Sclerosis, Nonobstructive CAD, Psoriatic arthritis, PAD, NS SVT, GERD, Hypothyroidism, Carotid disease, Tobacco use who presents to the [facility] ED on 11/15/23 with history of 4 to 5 days of initially nausea followed by bouts of emesis and loose stools although this has been decreasing with poor oral intake although she has still been attempting to have good water intake butit has not been at her baseline and she has had low blood pressures when she is checked them at home with recent issues of the last couple months with decreasing blood pressures prompting decreases in her medications with mild abdominal cramping the day prior but no pain nor any fevers or chills prompting eventual ED evaluation. Patient does have chronic pain syndrome of note and recently did have her oxycodone increased to 20 mg but returned back down to 10 mg because she noted that it was too strong. Workup in the ED included T97.8, heart rate 68, BP initially 83/61 rise in the ED up to 113/67 however most recently 98/56, respiratory rate 12, 98% on room air initially with most recent repeat respiratory rate 12, 94% on room air and heart rate 54, CBC with WBC 4.9,hemoglobin 13.7, platelet 164 with lymphopenia, CMP with sodium 130, chloride 97, BUN/creatinine 64/2.51, hepatic profile unremarkable, lipase 60, chest x-raywith minimal atelectasis and/or possible evolving pneumonia within the left lower lung, rapid SARS COVID, RSV and influenza with a positive influenza A, EKGwith sinus bradycardia with no acute evidence of ischemia however QTc on the longer end at 42 MS. In the ED patient ministered Zofran 4 mg IV x 1 and 1 L normal saline. [facility] Medical History Angina pectoris Bilateral carotid artery stenosis Chronic pain syndrome Essential (primary) hypertension Fatty liver GERD (gastroesophageal reflux disease) Goiter History of transient ischemic attack (TIA) HLD (hyperlipidemia) Multiple sclerosis Nonobstructive atherosclerosis of coronary artery Nonsustained paroxysmal supraventricular tachycardia Osteoarthritis Osteoporosis Peripheral vascular occlusive disease Psoriasis Psoriatic arthritis Thrombocytopenia Home Medications cholecalciferol (vitamin D3) 125 mcg (5,000 unit) tablet 5,000 unit PO DAILY supplement 12/16/13 [History Last Taken 07/16/19] gabapentin 800 mg tablet 800 mg PO TID MS 07/16/18 [History Last Taken 07/16/19] baclofen 20 mg tablet 20 mg PO Q8H 08/11/21 [History Last Taken 01/18/22] levothyroxine 50 mcg tablet 50 mcg PO DAILY 08/11/21 [History Last Taken 01/18/22] oxycodone 10 mg tablet 10 mg PO Q6H PRN 05/24/23 [History Last Taken Unknown] clopidogrel 75 mg tablet 75 mg PO DAILY dose increased, pt is OUT of med, pleasefill #90 TABLETS 06/01/23 [Rx Last Taken Unknown] lisinopril 5 mg tablet 5 mg PO DAILY #30 tabs 11/02/23 [Rx Last Taken Unknown] Allergy/AdvReac Type Severity Reaction Status Date / Time colestipol [From Colestid] Allergy Mild unknown Verified 11/15/23 11:27 pregabalin [From Lyrica] Allergy Mild Hives Verified 11/15/23 11:27 amitriptyline Allergy Rash Verified 11/15/23 11:27 temazepam [From Restoril] AdvReac Mild Nausea/Vom/ Verified 11/15/23 11:27 Diarrhea Antihistamines - Alkylamine AdvReac Nausea/Vom/ Verified 11/15/23 11:27 Diarrhea Antihistamines - Ethanolamine AdvReac Nausea/Vom/ Verified 11/15/23 11:27 Diarrhea Antihistamines - AdvReac Nausea/Vom/ Verified 11/15/23 11:27 Ethylenediamine Diarrhea Antihistamines - Piperazine AdvReac Nausea/Vom/ Verified 11/15/23 11:27 Diarrhea Antihistamines - Piperidine AdvReac Nausea/Vom/ Verified 11/15/23 11:27 Diarrhea aspirin AdvReac I'M ON Verified 11/15/23 11:27 BLOOD THINNERS codeine AdvReac Nausea Verified 11/15/23 11:27 Corticosteroids AdvReac Upset Verified 11/15/23 11:27 (Glucocorticoids) Stomach morphine AdvReac Nausea Verified 11/15/23 11:27 Npmjryp-MID-DrJ Reductase AdvReac Nausea Verified 11/15/23 11:27 Inhibitor [Vemcqcy-Rge-Dlo Reductase Inhibitor] Family History Mother Cancer CAD (coronary artery disease) Brain tumor Grandfather CVA (cerebral vascular accident) Father CAD (coronary artery disease) Ruptured abdominal aortic aneurysm (AAA) Sister Brain aneurysm Surgical History Brain aneurysm Fracture of right lower leg H/O hemorrhoidectomy H/O: History of angioplasty of peripheral vessel History of angioplasty of peripheral vessel (07/11/19) History of section History of hemorrhoidectomy History of hysterectomy History of left breast biopsy History of left heart catheterization (01/25/15) History of left-sided carotid endarterectomy History of partial thyroidectomy (11/30/05) History of right-sided carotid endarterectomy S/P coil embolization of cerebral aneurysm S/P hysterectomy S/P insertion of iliac artery stent S/P thyroidectomy Stenosis of left subclavian artery Social History household members: none Smoking Status: Current every day smoker tobacco type: cigarettes alcohol intake: never caffeine: Yes Type: coffee and tea ROS ROS Narrative Admission Review of Systems: CONSTITUTIONAL: No weight loss, + low grade T, chills, weakness or fatigue. HEENT: + Lightheaded, dizziness. Eyes: No visual loss, blurred vision, double vision or yellow sclerae. Ears, Nose, Throat: No hearing loss, sneezing, congestion, runny nose or sore throat. SKIN: No rash or itching, lesions, wounds. CARDIOVASCULAR: + Lightheadedness, dizziness. No chest pain, chest pressure or chest discomfort, palpitations, edema, orthopnea, syncopal events. RESPIRATORY: + Cough, non-productive. No marked shortness of breath, wheezing, hemoptysis. GASTROINTESTINAL: + anorexia, nausea, vomiting, diarrhea, abdominal pain/cramping. No melena, BRBPR. GENITOURINARY: + Decreased UOP with decreased oral intake. No dysuria, frequency, urgency or retention. NEUROLOGICAL: + Lightheadedness, dizziness, does have underlying MS and uses walker, chronic debility/lower extremity weakness. No headache, syncope, paralysis, ataxia, numbness or tingling in the extremities, seizure. MUSCULOSKELETAL: + muscle, back pain, joint pain or stiffness. HEMATOLOGIC: No anemia, bleeding or bruising. LYMPHATICS: No enlarged nodes. No history of splenectomy. PSYCHIATRIC: No history of depression or anxiety. ENDOCRINOLOGIC: No reports of sweating. + cold or heat intolerance. No polyuria or polydipsia. ALLERGIES: + Hx of hives Vital Signs Vital Signs Vital Signs: 11/15/23 11:22 11/15/23 11:28 11/15/23 11:29 Temperature 97.8 F 97.8 F Temperature Source Oral Oral Pulse Rate 68 62 Respiratory Rate 12 14 Respiratory Effort Normal Non-Labored Blood Pressure 83/61 L 98/61 Blood Pressure Mean 68 73 Pulse Ox 98 98 Oxygen Delivery Method Room Air Room Air 11/15/23 12:29 11/15/23 13:28 11/15/23 14:00 Temperature 97.8 F Temperature Source Oral Pulse Rate 63 56 L 54 L Respiratory Rate 19 H 18 12 Respiratory Effort Blood Pressure 106/50 L 113/67 98/56 L Blood Pressure Mean 68 82 70 Pulse Ox 96 96 94 Oxygen Delivery Method Room Air Room Air Room Air Weight Weight: 128 lb 4.944 oz Body Mass Index (BMI) 21.3 Physical Exam Narrative Physical Examination: General: Awake, alert, oriented x 3 and cooperative, laying in the ED bed, fatigued and ill appearing. Skin: Normal color, normal turgor, no icterus, no cyanosis. HEENT: AT/NC, EOMI, PERRLA, dry MM, no carotid bruits or JVD noted. Lungs: Diminished, > bases, dry cough with examination with deep inspiratory effort attempts, currently no appreciated rales, ronchi or wheezing. Heart: Mildly bradycardic with regular rhythm; no gallop, rub audible. Abdomen: Soft, NTTP, ND, hyperactive BS, no HSM. Extremities: No cyanosis, clubbing, or edema. Neurological: Patient awake, alert, oriented as noted, cognitive function intact; pupils equally reactive to light and accommodation, cranial nerves grossly normal, moving all 4 extremities but does have chronic debility/weaknesswith underlying MS, no markedly severe noted contractures, strength moderately to severely globally decreased secondary to acute presentation compounded by underlying comorbidities. Psychiatric: Affect appears flat, fatigued, ill appearing, no acute evidence of depressive or anxiety feelings. Results Lab / Micro Data 11/15/23 11:30 11/15/23 11:30 Labs: Laboratory Results - last 24 hr 11/15/23 11:30: WBC 4.9, RBC 4.74, Hgb 13.7, Hct 40.9, MCV 86.3, MCH 28.9, MCHC 33.5, RDW Std Deviation 46.6 H, RDW Coeff of David 14.6, Plt Count 164, MPV 10.1, Immature Gran % (Auto) 0.600, Neut % (Auto) 70.4 H, Lymph % (Auto) 14.3 L, Mesa % (Auto) 14.5 H, Eos % (Auto) 0.0, Baso % (Auto) 0.2, Absolute Neuts (auto) 3.4,Absolute Lymphs (auto) 0.70 L, Nucleated RBC % 0, Sodium 130 L, Potassium 3.9, Chloride 97 L, Carbon Dioxide 21.0, Anion Gap 12, BUN 64 H, Creatinine 2.51 H, Estim Creat Clear Calc 19.03, Est GFR (MDRD) Af Amer 24 L, Est GFR (MDRD) Non-Af20 L, BUN/Creatinine Ratio 25.5 H, Glucose 80, Calcium 8.1 L, Total Bilirubin 0.30, AST 34, ALT 27, Alkaline Phosphatase 104, Total Protein 6.9, Albumin 3.3, Globulin 3.6, Albumin/Globulin Ratio 0.9, Lipase 60 Micro: Microbiology 11/15/23 12:46 Mucosa - Nasopharyngeal SARS-CoV-2, Influenza & RSV (PCR) - Final Influenzae A Imagaing Radiology Impression Chest X-Ray 11/15/23 12:43 IMPRESSION: Minimal atelectasis and/or possible evolving pneumonia within the left lower lung. Electronically Signed: Niki Mojica MD at 13:03 EST , Assessment & Plan Assessment/Plan (1) Influenza A: (2) Acute kidney injury: PLAN: Plan The patient is a 68 y/o F w/ PMHx: Hx Cerebral aneurysm, Chronic pain syndrome, HTN, HLD, Hx TIA, Multiple Sclerosis, Nonobstructive CAD, Psoriatic arthritis, PAD, NS SVT, GERD, Hypothyroidism, Carotid disease, Tobacco use who presents to the [facility] ED on 11/15/23 with history of 4 to 5 days of initially nausea followed by bouts of emesis and loose stools although this has been decreasing with poor oral intake although she has still been attempting to have good water intake butit has not been at her baseline and she has had low blood pressures when she is checked them at home with recent issues of the last couple months with decreasing blood pressures prompting decreases in her medications with mild abdominal cramping the day prior but no pain nor any fevers or chills prompting eventual ED evaluation. #1. General Malaise, Cough, Fever, General Debility secondary to Influenza A Viral Syndrome with associated hypotension and GI losses with nausea/emesis/diarrhea: CXR in the ED w/ questionable evolving left lower lobe pneumonia with admission CBC w/ WBC 4.9 with no left shift. Influenza A positive. Will admit to MS telemetry, maintain on oxygen with wean as tolerated,PRN albuterol, continue hydration given CHRISTOPHER concurrently, given patient timelineof illness of at least 4 to 5 days she is not Tamiflu appropriate, HOB, IS parameters, maintain on fall and aspiration precautions, plan repeat chest x-rayin AM. PT/OT/case management consultation for discharge planning. #2. Acute kidney injury with Acute Hyponatremia/Hypochloremia of Hypovolemic nature on CKD stage III primarily per prior GFR trending: Secondary to acute illness #1. Admission BUN/Cr 64/2.51, prior baseline creatinine noted to be primarily 0.8- 1.0. Will hydrate, hold nephrotoxic medications and repeat chemistry in AM. If no improvement would plan FeNa and renal ultrasound assessment. #3. Chronic pain syndrome: Will very cautiously continue patient as needed painregimen (change to oxycodone 5 mg q 8h PRN and hold extended) in addition to gabapentin renally dosed to 300 mg BID and baclofen renally dosed to 2.5 mg q12 hours until renal fx improved to avoid withdrawal however given her significant acute kidney injury. As soon as function improved these will need to again be altered to avoid withdrawal. #4. Carotid disease: Status post right CEA, continue patient home Plavix regimen, holding hypertensive regimen as noted and noted statin intolerance/allergy. #5. PAD: Status post iliac artery stent previously, continue patient home Plavix regimen, holding hypertensive regimen as noted and noted statin intolerance/allergy. #6. Hx TIA: Will continue patient home Plavix regimen, holding hypertensive regimen as noted and noted statin intolerance/allergy. #7. Nonobstructive CAD: Will continue patient home Plavix regimen, holding hypertensive regimen as noted and noted statin intolerance/allergy. #8. Tobacco Abuse: Encouraged cessation, inpatient consultation per RT, NR if desired. #9. Multiple sclerosis: From current list not on aggressive regimen, only notedto be on gabapentin and also on baclofen, both of which as noted above will be temporarily renally dosed and will need to again be altered based on further renal functions. Encourage continued outpatient follow-up with neurology. PT/OT/case management consulted for discharge planning. #10. Psoriatic arthritis: Prior was on prednisone, not current taking. Also, asnoted on chronic pain regimen with renal changes as noted. #11. Hypertension: Given presentation with notable hypotension holding all regimen as well as noted acute kidney injury. #12. Hyperlipidemia: Noted statin allergy, defer to outpatient. #13. Hypothyroidism: History of previous goiter status post partial thyroidectomy, continue home synthroid regimen. #14. History cerebral aneurysm: Status post coil embolization. #15. DVT prophylaxis: Heparin. #16. CODE status: Patient HCPOA and living will are not in place but she notes her sons would be her decisions makers if she was unable. Discussed CODE status at length including difference between FULL code, DNR-CCA and DNR-CC status. Following discussions about the differences in these status, requested Full Codestatus. Advanced Care Planning Face to Face Time: 16 minutes. Charges/Coding Visit Charges Inpatient E&M: 32212 Init Hosp L3 Procedures Hospitalists Procedures: 84701 Advncd Care Plan 30 Min 11/15/23 1544 <Electronically signed by Sommer Resendiz MD> Cosigner Signature (if applicable): CC: Dr. Sommer Resendiz MD; Dr. Daron Benton MD~ Signed [facility] Work Phone: [phone]) 785-871712-28-2023 Discharge summary Author Michele Kebede [facility] November 15, 2023 3:10pm Note Date/Time November 15, 2023 12:02pm [facility] Medical Records Department [address] [place] [id number] Emergency Department Summary 11/15/23 MR#: [id number] Acct: [id number] Name: ANGÉLICA YO Rep #:[id number] 2 : 1955 68 From: Michele Kebede MD PCP: Dr. Daron Benton MD Status:REG ER Location: ED HPI History of Present Illness Chief Complaint: General Illness Informant: patient and family Narrative Narrative: Patient presents with nausea vomiting and diarrhea for about 4 5 days. Patient states she started with nausea and then vomiting. She had some diarrheabut it seems to be a little bit less. She has never had blood in the stool or vomitus. She states she is having trouble eating. She is getting some water in. She has been checking blood pressures at home and those have been low. Butthey have been adjusting her medicine because she has had very low blood pressures recently. She states she had some abdominal cramping yesterday but other than that she has not been hurting and she is not hurting now. She has less urine output but no dysuria. No odor. No fevers or chills. Only patient just recently were oxycodone was evidently increased for him to 20 mg. But she went back to 10 it sounds like because she cannot take the strong medications. [facility] Medical History Angina pectoris Bilateral carotid artery stenosis Chronic pain syndrome Essential (primary) hypertension Fatty liver GERD (gastroesophageal reflux disease) Goiter History of transient ischemic attack (TIA) HLD (hyperlipidemia) Multiple sclerosis Nonobstructive atherosclerosis of coronary artery Nonsustained paroxysmal supraventricular tachycardia Osteoarthritis Osteoporosis Peripheral vascular occlusive disease Psoriasis Psoriatic arthritis Thrombocytopenia Home Medications cholecalciferol (vitamin D3) 125 mcg (5,000 unit) tablet 5,000 unit PO DAILY supplement 12/16/13 [History Last Taken 07/16/19] gabapentin 800 mg tablet 800 mg PO TID MS 07/16/18 [History Last Taken 07/16/19] baclofen 20 mg tablet 20 mg PO Q8H 08/11/21 [History Last Taken 01/18/22] levothyroxine 50 mcg tablet 50 mcg PO DAILY 08/11/21 [History Last Taken 01/18/22] oxycodone 10 mg tablet 10 mg PO Q6H PRN 05/24/23 [History Last Taken Unknown] clopidogrel 75 mg tablet 75 mg PO DAILY dose increased, pt is OUT of med, pleasefill #90 TABLETS 06/01/23 [Rx Last Taken Unknown] oxycodone 20 mg tablet,crush resistant,extended release 12 hr 20 mg PO BID 5 days #10 tabs 10/05/23 [Rx Last Taken Unknown] prednisone 10 mg tablet 10 mg PO DAILY #63 tabs 10/05/23 [Rx Last Taken Unknown] lisinopril 5 mg tablet 5 mg PO DAILY #30 tabs 11/02/23 [Rx Last Taken Unknown] Allergy/AdvReac Type Severity Reaction Status Date / Time colestipol [From Colestid] Allergy Mild unknown Verified 11/15/23 11:27 pregabalin [From Lyrica] Allergy Mild Hives Verified 11/15/23 11:27 amitriptyline Allergy Rash Verified 11/15/23 11:27 temazepam [From Restoril] AdvReac Mild Nausea/Vom/ Verified 11/15/23 11:27 Diarrhea Antihistamines - Alkylamine AdvReac Nausea/Vom/ Verified 11/15/23 11:27 Diarrhea Antihistamines - Ethanolamine AdvReac Nausea/Vom/ Verified 11/15/23 11:27 Diarrhea Antihistamines - AdvReac Nausea/Vom/ Verified 11/15/23 11:27 Ethylenediamine Diarrhea Antihistamines - Piperazine AdvReac Nausea/Vom/ Verified 11/15/23 11:27 Diarrhea Antihistamines - Piperidine AdvReac Nausea/Vom/ Verified 11/15/23 11:27 Diarrhea aspirin AdvReac I'M ON Verified 11/15/23 11:27 BLOOD THINNERS codeine AdvReac Nausea Verified 11/15/23 11:27 Corticosteroids AdvReac Upset Verified 11/15/23 11:27 (Glucocorticoids) Stomach morphine AdvReac Nausea Verified 11/15/23 11:27 Zksrzuq-WFJ-OjK Reductase AdvReac Nausea Verified 11/15/23 11:27 Inhibitor [Mskmleg-Cqn-Mqb Reductase Inhibitor] Family History Mother Cancer CAD (coronary artery disease) Brain tumor Grandfather CVA (cerebral vascular accident) Father CAD (coronary artery disease) Ruptured abdominal aortic aneurysm (AAA) Sister Brain aneurysm Surgical History Brain aneurysm Fracture of right lower leg H/O hemorrhoidectomy H/O: History of angioplasty of peripheral vessel History of angioplasty of peripheral vessel (07/11/19) History of section History of hemorrhoidectomy History of hysterectomy History of left breast biopsy History of left heart catheterization (01/25/15) History of left-sided carotid endarterectomy History of partial thyroidectomy (11/30/05) History of right-sided carotid endarterectomy S/P coil embolization of cerebral aneurysm S/P hysterectomy S/P insertion of iliac artery stent S/P thyroidectomy Stenosis of left subclavian artery Social History household members: none Smoking Status: Current every day smoker tobacco type: cigarettes alcohol intake: never caffeine: Yes Type: coffee and tea ROS ROS ED ROS Narrative A complete review of systems was performed and is negative except as documented in the history of present illness. Some specific details below. Constitutional: No recent fevers or chills. She does have some generalized malaise EYE: No visual complaints or pain. ENT: No difficulty swallowing. No swelling. No congestion or facial pain. CV: No chest pain or palpitations. Respiratory: No dyspnea. No hemoptysis. No difficulty taking breaths. She states she has had a little cough a couple times today but generally no pulmonary symptoms. GI: Please see history of present illness. : No frequency dysuria or hematuria. She does have a decreased volume of urine. Musculoskeletal: No recent trauma. No new pains. She has chronic joint and backpains due to osteoporosis and MS but this is chronic and unchanged. Skin: No rash. Nondiaphoretic. Neuro: No focal weakness or numbness. Endocrine: No polyuria or polydipsia. EXAM Physical Exam Narrative Exam Narrative: CONSTITUTIONAL: Patient is nontoxic in appearance. The patient looks comfortable. HEENT: No notable trauma. Mucous membranes do look dry. No sinus tenderness. No indication of pain with swallowing. EYES: No conjunctival injection. No proptosis. No pallor. CARDIOVASCULAR: Regular rate. Regular rhythm. No notable murmur. No JVD. RESPIRATORY: No respiratory distress. Breathing is unlabored. No wheezes. No rhonchi. No rales. No pain with a deep breath. Saturations are normal at 98% onroom air. Although she reports an occasional cough she does not do this while Kilo in the room. GASTROINTESTINAL: Not distended. Bowel sounds are increased. No tenderness. No guarding. No rebound. No palpable mass. No bruit. GENITOURINARY: No tenderness over the bladder. No CVA tenderness. MUSCULOSKELETAL: Atraumatic. No peripheral edema. NEUROLOGICAL: Patient is alert and appropriate. No focal deficit noted. SKIN: No noted rashes. No diaphoresis. PSYCHIATRIC: Patient is calm. Mood is appropriate. Const Vital Signs: 11/15/23 11:22 11/15/23 11:28 11/15/23 11:29 Temperature 97.8 F 97.8 F Temperature Source Oral Oral Pulse Rate 68 62 Respiratory Rate 12 14 Respiratory Effort Normal Non-Labored Blood Pressure 83/61 L 98/61 Blood Pressure Mean 68 73 Pulse Ox 98 98 Oxygen Delivery Method Room Air Room Air 11/15/23 12:29 11/15/23 13:28 11/15/23 14:00 Temperature 97.8 F Temperature Source Oral Pulse Rate 63 56 L 54 L Respiratory Rate 19 H 18 12 Respiratory Effort Blood Pressure 106/50 L 113/67 98/56 L Blood Pressure Mean 68 82 70 Pulse Ox 96 96 94 Oxygen Delivery Method Room Air Room Air Room Air MDM MDM MDM Narrative Medical decision making narrative: My independent interpretation of her chest x-ray does show a little blunting theleft costophrenic angle. Although she has a slight cough she has no sputum production dyspnea or hypoxia. I think this is more likely atelectasis. Final reading is similar to this as above. Patient CBC is overall normal. Patient's electrolytes do show an acute kidney injury with doubling of her creatinine to 2.5. Her sodium is a bit low at 130. She was given some IV fluidsfor this. She also has a high BUN to creatinine ratio insistent of dehydration. Patient's liver function test are normal. Patient's lipase is normal. I rechecked the patient. Her nausea is improved but not gone. But she has beenable to drink some fluids. But she still feels a bit lightheaded getting up. Her blood pressure is still running anywhere from about 92-1 04 systolic. I think with her living alone, having acute kidney injury, still being ill from influenza A, lightheaded and low blood pressure admission is appropriate. Case was discussed with the hospitalist Lab Data Attestation: I reviewed the patient's lab results. Labs: Laboratory Results - last 24 hr 11/15/23 11:30 WBC 4.9 RBC 4.74 Hgb 13.7 Hct 40.9 MCV 86.3 MCH 28.9 MCHC 33.5 RDW Std Deviation 46.6 H RDW Coeff of David 14.6 Plt Count 164 MPV 10.1 Immature Gran % (Auto) 0.600 Neut % (Auto) 70.4 H Lymph % (Auto) 14.3 L Mesa % (Auto) 14.5 H Eos % (Auto) 0.0 Baso % (Auto) 0.2 Absolute Neuts (auto) 3.4 Absolute Lymphs (auto) 0.70 L Nucleated RBC % 0 Sodium 130 L Potassium 3.9 Chloride 97 L Carbon Dioxide 21.0 Anion Gap 12 BUN 64 H Creatinine 2.51 H Estim Creat Clear Calc 19.03 Est GFR (MDRD) Af Amer 24 L Est GFR (MDRD) Non-Af 20 L BUN/Creatinine Ratio 25.5 H Glucose 80 Calcium 8.1 L Total Bilirubin 0.30 AST 34 ALT 27 Alkaline Phosphatase 104 Total Protein 6.9 Albumin 3.3 Globulin 3.6 Albumin/Globulin Ratio 0.9 Lipase 60 Radiography Diagnostic Testing: Clinical Impression(s) from Imaging Studies Chest X-Ray 11/15/23 12:43 IMPRESSION: Minimal atelectasis and/or possible evolving pneumonia within the left lower lung. Electronically Signed: Niki Mojica MD at 13:03 EST , EKG Initial EKG: Comments: My independent interpretation of the patient's EKG shows sinus rhythm with a slightly bradycardic rate at 56. No ventricular ectopy. No acuteST elevation or depression. ME interval, QRS duration are normal. QTc is a little bit toward the longer end at 482 ms. Management Discussion w/another healthcare provider: Hospitalist Discharge Plan Triage Chief Complaint: General Illness ED Provider: Michele Kebede Dx/Rx/DC Orders Clinical Impression: Acute kidney injury, Influenza A, Acute hyponatremia, Dehydration Prescriptions: No Action gabapentin 800 mg tablet 800 mg PO TID baclofen 20 mg tablet 20 mg PO Q8H levothyroxine 50 mcg tablet 50 mcg PO DAILY Patient Comments: take 1 tablet by mouth once daily oxycodone 10 mg tablet 10 mg PO Q6H PRN Patient Comments: take 1 tablet by mouth twice a day if needed for pain lisinopril 5 mg tablet 5 mg PO DAILY Qty: 30 11RF cholecalciferol (vitamin D3) 5,000 UNIT tablet 5,000 unit PO DAILY Patient Comments: supplement oxycodone 20 mg tablet,oral only,ext.rel.12 hr 20 mg PO BID 5 Days Qty: 10 0RF prednisone 10 mg tablet 10 mg PO DAILY Qty: 63 0RF Rx Instructions: 60 mg p.o. daily for 3 days, 50 mg p.o. daily for 3 days, 40 mg p.o. daily for 3 days, 30 mg p.o. daily for 3 days, 20 mg p.o. daily for 3 days, 10 mg p.o.daily for 3 days. clopidogrel 75 mg tablet 75 mg PO DAILY Qty: 90 3RF Primary Care Provider: Daron Benton Referrals: Daron Benton MD [Primary Care Provider] - Disposition Disposition: Acute Care Hospital [facility] What to do if you have Problems For any increased pain, shortness of breath, bleeding, nausea or vomiting, chestpain, or any unexpected problems, contact your Primary Care Provider. Call [facility] ([phone]) or report to the closest Emergency Room. Call 911 if necessary. 11/15/23 1510 <Electronically signed by Michele Kebede MD> Cosigner Signature (if applicable): CC: Dr. Daron Benton MD ~ Signed [facility] Work Phone: [phone]) 412-559712-28-2023 Discharge summary Author Michele Kebede [facility] November 15, 2023 3:10pm Note Date/Time November 15, 2023 12:02pm [facility] Medical Records Department [address] [place] [address] Emergency Department Summary 11/15/23 MR#: [id number] Acct: [id number] Name: ANGÉLICA YO Rep #:[id number] 2 : 1955 68 From: Michele Kebede MD PCP: Dr. Daron Benton MD Status:REG ER Location: ED [facility] History of Present Illness Chief Complaint: General Illness Informant: patient and family Narrative Narrative: Patient presents with nausea vomiting and diarrhea for about 4 5 days. Patient states she started with nausea and then vomiting. She had some diarrheabut it seems to be a little bit less. She has never had blood in the stool or vomitus. She states she is having trouble eating. She is getting some water in. She has been checking blood pressures at home and those have been low. Buttjessicay have been adjusting her medicine because she has had very low blood pressures recently. She states she had some abdominal cramping yesterday but other than that she has not been hurting and she is not hurting now. She has less urine output but no dysuria. No odor. No fevers or chills. Only patient just recently were oxycodone was evidently increased for him to 20 mg. But she went back to 10 it sounds like because she cannot take the strong medications. [facility] Medical History Angina pectoris Bilateral carotid artery stenosis Chronic pain syndrome Essential (primary) hypertension Fatty liver GERD (gastroesophageal reflux disease) Goiter History of transient ischemic attack (TIA) HLD (hyperlipidemia) Multiple sclerosis Nonobstructive atherosclerosis of coronary artery Nonsustained paroxysmal supraventricular tachycardia Osteoarthritis Osteoporosis Peripheral vascular occlusive disease Psoriasis Psoriatic arthritis Thrombocytopenia Home Medications cholecalciferol (vitamin D3) 125 mcg (5,000 unit) tablet 5,000 unit PO DAILY supplement 12/16/13 [History Last Taken 07/16/19] gabapentin 800 mg tablet 800 mg PO TID MS 07/16/18 [History Last Taken 07/16/19] baclofen 20 mg tablet 20 mg PO Q8H 08/11/21 [History Last Taken 01/18/22] levothyroxine 50 mcg tablet 50 mcg PO DAILY 08/11/21 [History Last Taken 01/18/22] oxycodone 10 mg tablet 10 mg PO Q6H PRN 05/24/23 [History Last Taken Unknown] clopidogrel 75 mg tablet 75 mg PO DAILY dose increased, pt is OUT of med, pleasefill #90 TABLETS 06/01/23 [Rx Last Taken Unknown] oxycodone 20 mg tablet,crush resistant,extended release 12 hr 20 mg PO BID 5 days #10 tabs 10/05/23 [Rx Last Taken Unknown] prednisone 10 mg tablet 10 mg PO DAILY #63 tabs 10/05/23 [Rx Last Taken Unknown] lisinopril 5 mg tablet 5 mg PO DAILY #30 tabs 11/02/23 [Rx Last Taken Unknown] Allergy/AdvReac Type Severity Reaction Status Date / Time colestipol [From Colestid] Allergy Mild unknown Verified 11/15/23 11:27 pregabalin [From Lyrica] Allergy Mild Hives Verified 11/15/23 11:27 amitriptyline Allergy Rash Verified 11/15/23 11:27 temazepam [From Restoril] AdvReac Mild Nausea/Vom/ Verified 11/15/23 11:27 Diarrhea Antihistamines - Alkylamine AdvReac Nausea/Vom/ Verified 11/15/23 11:27 Diarrhea Antihistamines - Ethanolamine AdvReac Nausea/Vom/ Verified 11/15/23 11:27 Diarrhea Antihistamines - AdvReac Nausea/Vom/ Verified 11/15/23 11:27 Ethylenediamine Diarrhea Antihistamines - Piperazine AdvReac Nausea/Vom/ Verified 11/15/23 11:27 Diarrhea Antihistamines - Piperidine AdvReac Nausea/Vom/ Verified 11/15/23 11:27 Diarrhea aspirin AdvReac I'M ON Verified 11/15/23 11:27 BLOOD THINNERS codeine AdvReac Nausea Verified 11/15/23 11:27 Corticosteroids AdvReac Upset Verified 11/15/23 11:27 (Glucocorticoids) Stomach morphine AdvReac Nausea Verified 11/15/23 11:27 Musgful-JAN-FdW Reductase AdvReac Nausea Verified 11/15/23 11:27 Inhibitor [Coxttrm-Whs-Amv Reductase Inhibitor] Family History Mother Cancer CAD (coronary artery disease) Brain tumor Grandfather CVA (cerebral vascular accident) Father CAD (coronary artery disease) Ruptured abdominal aortic aneurysm (AAA) Sister Brain aneurysm Surgical History Brain aneurysm Fracture of right lower leg H/O hemorrhoidectomy H/O: History of angioplasty of peripheral vessel History of angioplasty of peripheral vessel (07/11/19) History of section History of hemorrhoidectomy History of hysterectomy History of left breast biopsy History of left heart catheterization (01/25/15) History of left-sided carotid endarterectomy History of partial thyroidectomy (11/30/05) History of right-sided carotid endarterectomy S/P coil embolization of cerebral aneurysm S/P hysterectomy S/P insertion of iliac artery stent S/P thyroidectomy Stenosis of left subclavian artery Social History household members: none Smoking Status: Current every day smoker tobacco type: cigarettes alcohol intake: never caffeine: Yes Type: coffee and tea ROS ROS ED ROS Narrative A complete review of systems was performed and is negative except as documented in the history of present illness. Some specific details below. Constitutional: No recent fevers or chills. She does have some generalized malaise EYE: No visual complaints or pain. ENT: No difficulty swallowing. No swelling. No congestion or facial pain. CV: No chest pain or palpitations. Respiratory: No dyspnea. No hemoptysis. No difficulty taking breaths. She states she has had a little cough a couple times today but generally no pulmonary symptoms. GI: Please see history of present illness. : No frequency dysuria or hematuria. She does have a decreased volume of urine. Musculoskeletal: No recent trauma. No new pains. She has chronic joint and backpains due to osteoporosis and MS but this is chronic and unchanged. Skin: No rash. Nondiaphoretic. Neuro: No focal weakness or numbness. Endocrine: No polyuria or polydipsia. EXAM Physical Exam Narrative Exam Narrative: CONSTITUTIONAL: Patient is nontoxic in appearance. The patient looks comfortable. HEENT: No notable trauma. Mucous membranes do look dry. No sinus tenderness. No indication of pain with swallowing. EYES: No conjunctival injection. No proptosis. No pallor. CARDIOVASCULAR: Regular rate. Regular rhythm. No notable murmur. No JVD. RESPIRATORY: No respiratory distress. Breathing is unlabored. No wheezes. No rhonchi. No rales. No pain with a deep breath. Saturations are normal at 98% onroom air. Although she reports an occasional cough she does not do this while Kilo in the room. GASTROINTESTINAL: Not distended. Bowel sounds are increased. No tenderness. No guarding. No rebound. No palpable mass. No bruit. GENITOURINARY: No tenderness over the bladder. No CVA tenderness. MUSCULOSKELETAL: Atraumatic. No peripheral edema. NEUROLOGICAL: Patient is alert and appropriate. No focal deficit noted. SKIN: No noted rashes. No diaphoresis. PSYCHIATRIC: Patient is calm. Mood is appropriate. Const Vital Signs: 11/15/23 11:22 11/15/23 11:28 11/15/23 11:29 Temperature 97.8 F 97.8 F Temperature Source Oral Oral Pulse Rate 68 62 Respiratory Rate 12 14 Respiratory Effort Normal Non-Labored Blood Pressure 83/61 L 98/61 Blood Pressure Mean 68 73 Pulse Ox 98 98 Oxygen Delivery Method Room Air Room Air 11/15/23 12:29 11/15/23 13:28 11/15/23 14:00 Temperature 97.8 F Temperature Source Oral Pulse Rate 63 56 L 54 L Respiratory Rate 19 H 18 12 Respiratory Effort Blood Pressure 106/50 L 113/67 98/56 L Blood Pressure Mean 68 82 70 Pulse Ox 96 96 94 Oxygen Delivery Method Room Air Room Air Room Air MDM MDM MDM Narrative Medical decision making narrative: My independent interpretation of her chest x-ray does show a little blunting theleft costophrenic angle. Although she has a slight cough she has no sputum production dyspnea or hypoxia. I think this is more likely atelectasis. Final reading is similar to this as above. Patient CBC is overall normal. Patient's electrolytes do show an acute kidney injury with doubling of her creatinine to 2.5. Her sodium is a bit low at 130. She was given some IV fluidsfor this. She also has a high BUN to creatinine ratio insistent of dehydration. Patient's liver function test are normal. Patient's lipase is normal. I rechecked the patient. Her nausea is improved but not gone. But she has beenable to drink some fluids. But she still feels a bit lightheaded getting up. Her blood pressure is still running anywhere from about 92-1 04 systolic. I think with her living alone, having acute kidney injury, still being ill from influenza A, lightheaded and low blood pressure admission is appropriate. Case was discussed with the hospitalist Lab Data Attestation: I reviewed the patient's lab results. Labs: Laboratory Results - last 24 hr 11/15/23 11:30 WBC 4.9 RBC 4.74 Hgb 13.7 Hct 40.9 MCV 86.3 MCH 28.9 MCHC 33.5 RDW Std Deviation 46.6 H RDW Coeff of David 14.6 Plt Count 164 MPV 10.1 Immature Gran % (Auto) 0.600 Neut % (Auto) 70.4 H Lymph % (Auto) 14.3 L Mesa % (Auto) 14.5 H Eos % (Auto) 0.0 Baso % (Auto) 0.2 Absolute Neuts (auto) 3.4 Absolute Lymphs (auto) 0.70 L Nucleated RBC % 0 Sodium 130 L Potassium 3.9 Chloride 97 L Carbon Dioxide 21.0 Anion Gap 12 BUN 64 H Creatinine 2.51 H Estim Creat Clear Calc 19.03 Est GFR (MDRD) Af Amer 24 L Est GFR (MDRD) Non-Af 20 L BUN/Creatinine Ratio 25.5 H Glucose 80 Calcium 8.1 L Total Bilirubin 0.30 AST 34 ALT 27 Alkaline Phosphatase 104 Total Protein 6.9 Albumin 3.3 Globulin 3.6 Albumin/Globulin Ratio 0.9 Lipase 60 Radiography Diagnostic Testing: Clinical Impression(s) from Imaging Studies Chest X-Ray 11/15/23 12:43 IMPRESSION: Minimal atelectasis and/or possible evolving pneumonia within the left lower lung. Electronically Signed: Niki Mojica MD at 13:03 EST , EKG Initial EKG: Comments: My independent interpretation of the patient's EKG shows sinus rhythm with a slightly bradycardic rate at 56. No ventricular ectopy. No acuteST elevation or depression. ME interval, QRS duration are normal. QTc is a little bit toward the longer end at 482 ms. Management Discussion w/another healthcare provider: Hospitalist Discharge Plan Triage Chief Complaint: General Illness ED Provider: Michele Kebede Dx/Rx/DC Orders Clinical Impression: Acute kidney injury, Influenza A, Acute hyponatremia, Dehydration Prescriptions: No Action gabapentin 800 mg tablet 800 mg PO TID baclofen 20 mg tablet 20 mg PO Q8H levothyroxine 50 mcg tablet 50 mcg PO DAILY Patient Comments: take 1 tablet by mouth once daily oxycodone 10 mg tablet 10 mg PO Q6H PRN Patient Comments: take 1 tablet by mouth twice a day if needed for pain lisinopril 5 mg tablet 5 mg PO DAILY Qty: 30 11RF cholecalciferol (vitamin D3) 5,000 UNIT tablet 5,000 unit PO DAILY Patient Comments: supplement oxycodone 20 mg tablet,oral only,ext.rel.12 hr 20 mg PO BID 5 Days Qty: 10 0RF prednisone 10 mg tablet 10 mg PO DAILY Qty: 63 0RF Rx Instructions: 60 mg p.o. daily for 3 days, 50 mg p.o. daily for 3 days, 40 mg p.o. daily for 3 days, 30 mg p.o. daily for 3 days, 20 mg p.o. daily for 3 days, 10 mg p.o.daily for 3 days. clopidogrel 75 mg tablet 75 mg PO DAILY Qty: 90 3RF Primary Care Provider: Daron Benton Referrals: Daron Benton MD [Primary Care Provider] - Disposition Disposition: Acute Care Hospital [facility] What to do if you have Problems For any increased pain, shortness of breath, bleeding, nausea or vomiting, chestpain, or any unexpected problems, contact your Primary Care Provider. Call [facility] ([phone]) or report to the closest Emergency Room. Call 911 if necessary. 11/15/23 1510 <Electronically signed by Michele Kebeed MD> Cosigner Signature (if applicable): CC: Dr. Daron Benton MD ~ Signed [facility] Work Phone: [phone]) 955-472511-17-2023 History of Present illness Narrative* Kristopher Main MD - 10/05/2023 3:00 PM EST Images from the original note were not included. [facility] [address] [facility] [address] Dept: [phone] Dept Loc: [phone] Patient was seen today via Telehealth by agreement and consent. I used the following Telehealth technology: Audio capability only. Total length of call 30 minutes. The patient was offered and advisedvideo for a more comprehensive evaluation, but the patient declined or was unable to use video. Patient location: Patient Location: Home. This patient encounter is appropriate and reasonable underthe circumstances: transportation issues . The patient has [...] call 911 if the patient deems either nec essary. The patient stated that they are currently in the [facility]. If the patient is a minor,permission has been obtained by the parent or [...] Negative for agitation, behavioral problems, decreased concentration, sleepdisturbance and suicidal ideas. Allergies Allergen Reactions Antihistamines, Diphenhydramine-Type Clopidogrel Other reaction(s): Other: See Comments Heartburn Codeine nausea Fenofibrate Other reaction(s): Intolerance Fentanyl Other reaction(s): Other: See Comments Sweating/ Flushing Morphine nausea and vomiting Prednisone Destroyed bone. Salicylates Amitriptyline Rash Current Outpatient Medications: baclofen (Lioresal) 20 MG tablet, Take 1 tablet (20 mg) by mouth every 8 hours as needed for musclespasms., Disp: 90 tablet, Rfl: 5 cholecalciferol (Vitamin [...] in the morning and 1 tablet (4 mg)at noon and 1 tablet (4 mg) before [...] 04/04/2023 [APTT} FLP: No results found for: CHLPL, TRIG, HDL, LDLCALC, LDLDIRECT TSH: No results found for: TSH VITAMIN B12: No results found for: [id number] No results found for: PHENYTOIN, PHENOBARB, VALPROATE, CBMZ No results found for: LEVETIRACETA, FERRITIN, CRP, DENNIS, ANCA FERRITIN: No results found for: FERRITIN @RESULTINGLABINFO@ No components found for: TOPIRA No results found for: CHRISTIANO, IMMUNOGLOBUL, OLIGOBANDS No results found for: VEW20US, HEPCAB No results found for: CRP, ANATITER, ANCA ---- @LASTAPPOINTMENTTHISPROV@ ECG 12 lead SINUS BRADYCARDIA PROBABLE LEFT ATRIAL ABNORMALITY No previous ECG available for comparison Electronically Signed On 04-05-2023 7:42:10 EDT by Juvenal Benton [facility] 1955 [id number] Exam Date/Time: 04/04/2023 15:32 Procedure: CT HEAD NECK ANGIO W AND WO IV CONTRAST Ordering Provider: KRISHNAMURTHY JOHN Reason For Exam: dizziness, and numbness [...] volume rendered reformats were obtained using a [employer] workstation. Review of the axial source data [...] of the major intracranial arteries at the [place]. 6. No hemodynamically significant narrowing [...] and arranging for studies. documented in this [facility]11-17-2023 Telephone encounter Note* Telephone Encounter - Yanely Kwon MA - 10/05/2023 12:58 PM EST Patient has been scheduled and records are being faxed over. [id number] Miscellaneous Notes* Telephone Encounter - Yanely Kwon MA - 10/05/2023 12:58 PM EST Patient has been scheduled and records are being faxed over. * Telephone Encounter - Kristopher Main MD - 10/05/2023 12:36 PM EST Get records from [facility]. OK to add her on at 3 PM as a real or a virtual visit * Telephone Encounter - Ольга Pa - 10/05/2023 9:20 AM EST Name of caller: Angélica Contact phone number: [phone] Relationship to Patient: patient Provider: DR Main Practice: [facility] Chief Complaint/Reason for Call: pt was at [facility] yesterday for an MS attack she is asking for IV steroids order infusion. She was started at the hospital and will need additional steroids.Please advise when order placed. Best time of day caller can be reached: AM Patient advised that office/PCP has 24-48 business hours to return their call: Yes documented in this [place] [id number] Telephone encounter Note* Telephone Encounter - Kristopher Main MD - 10/05/2023 12:36 PM EST Get records from [facility]. OK to add her on at 3 PM as a real or a virtual visit [facility] [id number] Telephone encounter Note* Telephone Encounter - Ольга Pa - 10/05/2023 9:20 AM EST Name of caller: Angélica Contact phone number: [phone] Relationship to Patient: patient Provider: DR Main Practice: [facility] Chief Complaint/Reason for Call: pt was at [facility] yesterday for an MS attack she is asking for IV steroids order infusion. She was started at the hospital and will need additional steroids.Please advise when order placed. Best time of day caller can be reached: AM Patient advised that office/PCP has 24-48 business hours to return their call: Yes [facility] [id number] Telephone encounter Note* Telephone Encounter - Annalee Ram - 06/15/2023 9:41 AM EDT Medication name: baclofen (Lioresal) 20 MG tablet [[id number]] Order Details Dose: 20 mg Route: Oral [...] Original Order: baclofen (Lioresal) 20 MG tablet [[id number]] Providers Ordering and Authorizing Provider: Kristopher Main MD NEGRA #: [id number] Ordering User: Kristopher Main MD Pharmacy [id number] [address] [address] NEGRA #: -- Date of last office visit: 04/04/23 Date of next office visit: None Date of last refill: (see medication tab): 10/05/22 Updated/Validated preferred pharmacy: Yes Patient instructed to contact the pharmacy prior to picking up the medication: Yes [id number] Miscellaneous Notes* Telephone Encounter - Annalee Ram - 06/15/2023 9:41 AM EDT Medication name: baclofen (Lioresal) 20 MG tablet [[id number]] Order Details Dose: 20 mg Route: Oral [...] Original Order: baclofen (Lioresal) 20 MG tablet [[id number]] Providers Ordering and Authorizing Provider: Kristopher Main MD NEGRA #: [id number] Ordering User: Kristopher Main MD Pharmacy [id number] [place] [id number] NEGRA #: -- Date of last office visit: 04/04/23 Date of next office visit: None Date of last refill: (see medication tab): 10/05/22 Updated/Validated preferred pharmacy: Yes Patient instructed to contact the pharmacy prior to picking up the medication: Yes documented in this encounterSMercy [id number] Telephone encounter Note* Telephone Encounter - Kristopher Main MD - 06/04/2023 4:04 PM EDT Rx renewed [id number] Miscellaneous Notes* Telephone Encounter - Kristopher Main MD - 06/04/2023 4:04 PM EDT Rx renewed * Telephone Encounter - Bina Snow - 06/04/2023 3:31 PM EDT Please advise. * Telephone Encounter - Jeni Crook - 06/04/2023 9:59 AM EDT Medication name: gabapentin (Neurontin) 800 MG tablet [...] up the medication: Yes documented in this encounterSMercy [id number] Telephone encounter Note* Telephone Encounter - Bina Snow - 06/04/2023 3:31 PM EDT Please advise. [facility] [id number] Telephone encounter Note* Telephone Encounter - Jeni Crook - 06/04/2023 9:59 AM EDT Medication name: gabapentin (Neurontin) 800 MG tablet [...] prior to picking up the medication: Yes [facility] [id number] Hospital Discharge instructions Additional Instructions 1. Do not place an Jean-Claude wrap on your foot this probably contributed to the swelling. 2. Apply ice to calf 6-10 times a day for the next [facility] Work Phone: 1(352) 490-710312-22-2022 Hospital Discharge instructions Patient Education 11/09/2022 12:48:32 [...] and water are not available, use hand tile presser. ?Change your dressing as told by your [...] care provider, usually in about a week. Askyour health care provider what activities are safe for you. If the catheter site starts bleeding, lie flat and put pressure on the site. If the bleeding does not stop, get help right away. This is a medical emergency. Drink enough fluid to keep your urine clear or pale yellow. This helps flush the contrast dye from your body. Take utej-qiy-fcbnaul and prescription medicines only as told by [...] provider says it is okay to do so.You may shower 24 48 hours after the [...] 05/24/2006 Document Revised: 10/18/2018 Document Reviewed: 10/10/2017 [employer] Patient Education 2020 [employer]. 11/09/2022 12:48:21 Moderate Conscious Sedation, Adult, Care After Moderate Conscious Sedation, Adult, Care After These instructions provide you with information about caring for yourself after your procedure. Your health care provider may also give you more specific instructions. Your treatment has been plannedaccording to current medical practices, but problems sometimes [...] until you are awake and alert. Take fhed-fpk-nptomlb and prescription medicines only as told by [...] 08/26/2014 Document Revised: 10/18/2018 Document Reviewed: 02/24/2017 [employer] Patient Education 2020 [employer]. Follow Up Care 10/27/2022 15:58:56 With:TYE BARNETT MD, [facility], Surgery, Vascular Surgeons Address: [facility] [address] [facility] [address] [place] [address] When: Unknown Comments:Follow-up as scheduled [facility] 12-22-2022 Summary of episode note Discharge Instructions Thank you for allowing [facility] to assist you with your healthcare needs. The following is importantdischarge information regarding your hospital visit. What to do next Follow Up Appointments Follow Up with TYE BARNETT MD, [facility], Surgery, Vascular Surgeons When Why: Follow-up as scheduled Where: [facility] [address] [facility] [address] [place] [address] The Following Activity and Diet Have Been Ordered for You Discharge Activity - Ordered -- Follow the post-operative/post-procedure activity instructions provided by your physician's office., 11/09/22 11:24:00 EST Discharge Diet - Ordered -- Follow the post-operative/post-procedure diet instructions provided by your physician's office.,11/09/22 11:24:00 EST The Following Equipment Has Been [...] and or supplements as they may interact withyour home medications. What How Much When Instructions [...] and water are not available, use hand tile presser. ? Change your dressing as told by [...] care provider, usually in about a week. Askyour health care provider what activities are safe for you. If the catheter site starts bleeding, lie flat and put pressure on the site. If the bleeding does not stop, get help right away. This is a medical emergency. Drink enough fluid to keep your urine clear or pale yellow. This helps flush the contrast dye from your body. Take wdyl-fwb-gjttajd and prescription medicines only as told by [...] provider says it is okay to do so.You may shower 24 48 hours after the [...] 05/24/2006 Document Revised: 10/18/2018 Document Reviewed: 10/10/2017 [employer] Patient Education 2020 [employer] Moderate Conscious Sedation, Adult, Care After These instructions provide you with information about caring for yourself after your procedure. Your health care provider may also give you more specific instructions. Your treatment has been plannedaccording to current medical practices, but problems sometimes [...] until you are awake and alert. Take wvgx-tdo-ewdeebj and prescription medicines only as told by [...] 08/26/2014 Document Revised: 10/18/2018 Document Reviewed: 02/24/2017 [employer] Patient Education 2020 [employer] Additional Information VACCINATE! IT SAVES LIVES! Members of the community who have not yet received the COVID-19 vaccine and would like to receive it can visit one of [facility] vaccine clinics. There are many vaccine clinic locations within the [facility]. For locations and available times, please visit https://[email or web address].[place].gov/. It is important to note that some COVID mobile vaccine clinics are held outdoors and may be canceled in rainy or stormy conditions. To learn more about pediatric vaccinations (ages 5-11), we invite you to visit the [facility] webpage. https://[email or web address]/[email or web address]-Fltadowueb-Ovgvy-Fod stions.htmlTo learn more about the COVID-19 vaccine, we invite you to visit the [facility] website for a list of frequently asked questions. [email or web address]-[email or web address]/pxjtm-Rfdjilc-Gvqkxrcfwh _[email or web address]-Questions.pdf [facility] Patient Portal Access Instructions: Stay connected with your healthcare team and access your personal medical information anytime with the [facility] Patient Portal.If you would like a full copy of your medical records, please contact the [facility] Medical Records Department, Sunday through Sunday between 8a.m. and 4:30p.m. Please follow the directions below to access the portal: 1.Access the email account you provided upon registration to the [facility].2.Look for an invitation email from [facility].3.Open the email and access the invitation link: Accept Invitation to [facility]4.Fill in the required duarte to create your account. Sign into [email or web address] with your username and password that you [...] you will allow to register on the [facility] Patient Portal for access to your information. You can also access the [facility] Patient Portal on the [employer] jennifer. Simply click on Health Records under HealthData and then click on the [facility] logo. HOW TO SAFELY DISPOSE OF PRESCRIPTION MEDICATIONS Please use one of the following methods to safely dispose of your unused medications. 1.Use a drug disposal kit: the drug disposal pouch allows you to safely discard your old and unuseddrugs. Ask your nurse to give you one when you are discharged.2.Visit a local take-back location: Many local pharmacies and police departments have programs that collect old and unwanted prescriptiondrugs. Call your local pharmacy or go to http://bit.ly/0J2Mb6t to find one close to you.3.Make use of household items: Use cat litter or old coffee grounds to dispose medications if other options arenot available. Mix your drugs with these household products, seal them in an airtight container andthrow it into the garbage. Call [facility]: [phone] to be sure your drugs can be [...] aware that I should contact my doctor. 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 [facility] [id number] Note ORIGINAL Images acquired, not reported on this accession number.[facility] 04-12-2021 NoteHNO ID: [id number] Author: RT Sandra(R) Service: ? Author Type: Manager Order Type: Progress Notes Filed: 04/12/2021 2:14 PM [...] Sclerosis SIGNATURE: RT Sandra(R) PATIENT NAME: Angélica Yo DATE: April 12, 2021 TIME: 2:13 [facility]03-24-2021 NoteHNO ID: [id number] Author: Meli Gore Service: ? Author Type: Physician Type: Progress [...] of wound at high risk for bone exposure.[facility]01-07-2021 History of Present illness Narrative* Tammy Cornejo (Rt), [facility] - 11/25/2020 3:10 PM EST Radiology Service Progress Note PATIENT NAME: Angélica Yo DATE OF SERVICE: November 25, 2020 TIME: 3:08 PM PATIENT IDENTITY VERIFICATION COMPLETED USING TWO (2) IDENTIFIERS: Name and Date of confirmedby patient verbally. FALL SCREENING: Has the patient had 2 falls in the last year or 1 fall with injury or currently using an Ambulatory Assistive Device (Walker, Cane, Wheelchair, Crutches, etc.)? Yes, Patient High Riskfor Falls What interventions were put in place to prevent falls during this visit? Instructed Patient to Callfor Help if Needed, Offered Assistance with Transfers/Clothing and Increased Observations by Caregivers PATIENT GENDER DATA: Female. status: : No status: NO. PATIENT RELEVANT IMPLANT DATA REVIEWED: Yes RADIOLOGY DEPARTMENT: General X-ray: Exam(s) Completed: Chest X-Ray PERIPHERAL IV DATA: Not applicable SIGNED BY: RT Surya November 25, 2020 3:08 PM documented in this encounterUniversity Hospitals Ahuja Medical Centerlt note Author Noa Raza [facility] November 16, 2023 10:43am Note Date/Time November 16, 2023 10:43am [facility] Medical Records Department [address] [place] [address] Counseling Note - Pharmacy 11/16/23 1043 MR#: [id number] Acct: [id number] Name: ANGÉLICA YO Rep #:[id number] : 1955 68 From: Noa Raza PCP: Dr. Daron Benton MD Status:ADM IN Y Location: [place] [address] Pharmacy [place] Med Reconciliation Pharmacy Service has performed discharge medication reconciliation for this patient. The patient's discharge medication list was reviewed for discrepancies and discrepancies were resolved. Medications at Discharge Home Medications cholecalciferol (vitamin D3) 125 mcg (5,000 unit) tablet 5,000 unit PO DAILY supplement 12/16/13 gabapentin 800 mg tablet 800 mg PO TID MS 07/16/18 baclofen 20 mg tablet 20 mg PO Q8H 08/11/21 levothyroxine 50 mcg tablet 50 mcg PO DAILY 08/11/21 oxycodone 10 mg tablet 10 mg PO Q6H PRN 05/24/23 clopidogrel 75 mg tablet 75 mg PO DAILY dose increased, pt is OUT of med, pleasefill #90 TABLETS 06/01/23 lisinopril 5 mg tablet 5 mg PO DAILY #30 tabs 11/02/23 dextromethorphan-guaifenesin ER 60 mg-1,200 mg tab,extend release,12hr (Mucinex DM) 1 tab PO Q12H 7 days #14 tabs 11/16/23 11/16/23 1043 <Electronically signed by Noa Raza > Date _ Noa Raza Cosigner Signature (if applicable): Date CC: ~ Signed [facility] Work Phone: Consult note Author Christel Miranda [facility] November 21, 2023 11:56am Note Date/Time November 21, 2023 11 :56am [facility] Medical Records Department [address] [place] [address] Counseling Note - Pharmacy 11/21/23 1155 MR#: [id number] Acct: [id number] Name: ANGÉLICA YO Rep #:[id number] 2 : 1955 68 From: Christel Miranda PCP: Dr. Daron Benton MD Status:ADM IN Location: [place] [id number] has performed discharge medication reconciliation and counseling for this patient. 1. APIXABAN 5MG PO BID 2. METOPROLOL TARTRATE 12.5MG PO BID The patient's discharge medication list was reviewed for discrepancies and discrepancies were resolved. The patient was counseled on the following discharge medications and changes in medications for homegoing were reviewed. The Reason for Use, instructions for use, and potential side effects were reviewed for all new medications. The patient's questions regarding all of their medications were answered. The patient was able to verbally demonstrate an understanding of their dischargemedications. Medications at Discharge Home Medications cholecalciferol (vitamin D3) 125 mcg (5,000 unit) tablet 5,000 unit PO DAILY supplement 12/16/13 gabapentin 800 mg tablet 800 mg PO TID MS 07/16/18 baclofen 20 mg tablet 20 mg PO Q8H MS 08/11/21 levothyroxine 50 mcg tablet 50 mcg PO DAILY thyroid 08/11/21 oxycodone 10 mg tablet 10 mg PO Q6H PRN pain 05/24/23 clopidogrel 75 mg tablet 75 mg PO DAILY dose increased, pt is OUT of med, pleasefill #90 TABLETS 06/01/23 lisinopril 5 mg tablet 5 mg PO DAILY blood pressure #30 tabs 11/02/23 dextromethorphan-guaifenesin ER 60 mg-1,200 mg tab,extend release,12hr (Mucinex DM) 1 tab PO Q12H cough/congest 7 days #14 tabs 11/16/23 apixaban 5 mg tablet (Eliquis) 5 mg PO BID 30 days #60 tabs 11/21/23 metoprolol tartrate 25 mg tablet 12.5 mg (1/2 x 25 mg) PO BID 30 days #30 tabs 11/21/23 11/21/23 1156 <Electronically signed by Christel Miranda> Date _ Christel Nuñezer Signature (if applicable): Date CC: ~ Signed [facility] Work Phone: Consult note Author Christel Miranda [facility] February 25, 2024 4:09pm Note Date/Time February 25, 2024 4:[address] [facility] Medical Records Department [address] [place] [address] Counseling Note - Pharmacy 02/25/24 1607 MR#: [id number] Acct: [id number] Name: ANGÉLICA YO Rep #:[id number] 2 : 1955 68 From: Christel Miranda PCP: Dr. Daron Benton MD Status:ADM IN Y Location: [place] [address] Pharmacy [facility] Pharmacy Service has performed discharge medication reconciliation and counseling for this patient. 1. AMOXICILLIN/CLAVULANATE 875/125MG 1T PO BID X 2 DAYS 2. PANTOPRAZOLE 40MG PO BID The patient's discharge medication list was reviewed for discrepancies and discrepancies were resolved. The patient was counseled on the following discharge medications and changes in medications for homegoing were reviewed. The Reason for Use, instructions for use, and potential side effects were reviewed for all new medications. The patient's questions regarding all of their medications were answered. The patient was able to verbally demonstrate an understanding of their dischargemedications. Medications at Discharge Home Medications cholecalciferol (vitamin D3) 125 mcg (5,000 unit) tablet 5,000 unit PO DAILY supplement 12/16/13 gabapentin 800 mg tablet 800 mg PO TID MS 07/16/18 baclofen 20 mg tablet 20 mg PO Q6H MS 08/11/21 levothyroxine 50 mcg tablet 50 mcg PO DAILY thyroid 08/11/21 oxycodone 10 mg tablet 10 mg PO Q6H PRN pain 05/24/23 apixaban 5 mg tablet (Eliquis) 5 mg PO BID #60 tabs 01/11/24 dextromethorphan-guaifenesin ER 60 mg-1,200 mg tab,extend release,12hr (Mucinex DM) 1 tab PO Q12H PRN cough/congest 02/19/24 lisinopril 10 mg tablet 10 mg PO DAILY 02/19/24 amoxicillin 875 mg-potassium clavulanate 125 mg tablet 1 tab PO BID #4 tabs 02/25/24 pantoprazole 40 mg tablet,delayed release (Protonix) 40 mg PO BID #60 tabs 02/25/24 02/25/24 1609 <Electronically signed by Christel Miranda> Date _ Christel Peterson Signature (if applicable): Date CC: ~ Signed [facility] Work Phone: Consult note Author Christel Miranda [facility] Note Date/Time April 22, 2025 4:00p m [facility] Medical Records Department [address] [place] [address] Counseling Note - Pharmacy 04/22/25 1559 MR#: [id number] Acct: [id number] Name: ANGÉLICA YO Rep #:[id number] : 1955 69 From: Christel Miranda PCP: Dr. Daron Benton MD Status:ADM IN Location: [facility] [id number] Pharmacy [facility] Counseling Pharmacy Service has performed discharge medication reconciliation and counseling for this patient. 1. PANTOPRAZOLE 40MG PO DAILY 2. FERREX 150MG PO DAILY 3. POTASSIUM CHLORIDE 20MEQ/15ML SOLUTION 20MEQ PO DAILY 4. RESUME ELIQUIS 04/28 The patient's discharge medication list was reviewed for discrepancies and discrepancies were resolved. The patient was counseled on the following discharge medications and changes in medications for homegoing were reviewed. The Reason for Use, instructions for use, and potential side effects were reviewed for all new medications. The patient's questions regarding all of their medications were answered. The patient was able to verbally demonstrate an understanding of their dischargemedications. Medications at Discharge Home Medications gabapentin 800 mg tablet 800 mg PO TID MS 07/16/18 baclofen 20 mg tablet 20 mg PO Q6H MS 08/11/21 levothyroxine 50 mcg tablet 50 mcg PO DAILY thyroid 08/11/21 oxycodone 10 mg tablet 10 mg PO Q6H PRN pain 05/24/23 dextromethorphan-guaifenesin ER 60 mg-1,200 mg tab,extend release,12hr (Mucinex DM) 1 tab PO Q12H PRN cough/congest 02/19/24 famotidine 40 mg tablet 40 mg PO QDAY PRN indigestion 11/24/24 lisinopril 10 mg tablet 10 mg PO BID blood pressure 11/24/24 aspirin 81 mg tablet,delayed release 81 mg PO BREAKFAST heart health #30 tabs 12/11/24 amlodipine 5 mg tablet (Norvasc) 2.5 mg (1/2 x 5 mg) PO QDAY bp #90 tabs 01/13/25 carvedilol 3.125 mg tablet 3.125 mg PO BIDCM heart #180 tabs 03/03/25 apixaban 5 mg tablet (Eliquis) 5 mg PO Q12H anticoagulation #180 tabs 03/09/25 Held on 04/22/25. Instructions: Resume on 04/28/25. cholecalciferol (vitamin D3) 125 mcg (5,000 unit) capsule 125 mcg PO DAILY supplement 04/18/25 docusate sodium 100 mg capsule (Colace) 100 mg PO BID stool softener 7 days #14 caps 04/18/25 doxepin 10 mg/mL oral concentrate 5 - 10 mg PO QHS 04/18/25 ipratropium bromide 42 mcg (0.06 %) nasal spray 2 spray intranasal TID PRN allergy symptoms 04/18/25 naloxegol 25 mg tablet (Movantik) 25 mg PO DAILY 30 days #30 tabs 04/18/25 rosuvastatin 10 mg tablet 10 mg PO QHS hld 04/18/25 pantoprazole 40 mg tablet,delayed release (Protonix) 40 mg PO DAILY 90 days #90 tabs 04/22/25 polysaccharide iron complex 150 mg iron capsule (Ferrex) 150 mg PO DAILY 90 days#90 caps 04/22/25 potassium chloride 20 mEq/15 mL oral liquid 20 meq (15 mL) PO DAILY 30 days #450mL 04/22/25 04/22/25 1600 <Electronically signed by Christel Miranda> Date _ Christel Miranda Cosigner Signature (if applicable): Date CC: ~ Signed [facility] Work Phone: Discharge summary Author Hi Garcia [facility] November 16, 2023 10:38am Note Date/Time November 16, 2023 10:33am [facility] Medical Records Department [address] [place] [address] Instructions for Home/Discharge Instructions 11/16/23 1032 MR#: [id number] Acct: [id number] Name: ANGÉLICA YO Rep #:[id number] 1 : 1955 68 From: Hi Llanos PCP: Dr. Daron Benton MD Status:ADM IN Discharge Instructions Diet Discharge Diet: No restrictions Activity Discharge Activity: Return to Normal Activity Weight Bearing Status: Weight bearing as tolerated Dressing / Incision Call your doctor if you observe: Fever of 101 or Higher, Coldness, Increased Pain, Numbness or Tingling, Change in Color, Inability to urinate, Inability to have a bowel movement, Using more than 1 pad per hour, Shortness of breath, Dizziness, Fainting spells, Swelling in the ankles, Chest pain, Prolonged hiccupping, Increased palpitations (irregular heartbeat) and Calf discomfort Follow Up Care When: IN 2 WEEKS Test Results: Test results from this visit will be discussed in further detail at your follow- up appointment, if applicable. Discharge Plan Admission Admit Date/Time: 11/15/23 15:13 Primary Reason for Your Visit: Influenza A bronchitis Attending Provider: Hi Garcia Primary Care Provider: Daron Benton Consulting Providers: Sommer Resendiz Discharge Orders/Prescriptions Prescriptions: New dextromethorphan-guaifenesin [Mucinex DM] 60-1,200 mg tablet extended release 12 hr 1 tab PO Q12H 7 Days Qty: 14 0RF Continued gabapentin 800 mg tablet 800 mg PO TID baclofen 20 mg tablet 20 mg PO Q8H levothyroxine 50 mcg tablet 50 mcg PO DAILY Patient Comments: take 1 tablet by mouth once daily oxycodone 10 mg tablet 10 mg PO Q6H PRN Patient Comments: take 1 tablet by mouth twice a day if needed for pain cholecalciferol (vitamin D3) 5,000 UNIT tablet 5,000 unit PO DAILY Patient Comments: supplement clopidogrel 75 mg tablet 75 mg PO DAILY Qty: 90 3RF Held lisinopril 5 mg tablet 5 mg PO DAILY Qty: 30 11RF Hold Instructions: Hold for 7 days. Referrals / Follow Up: Daron Bentno MD [Primary Care Provider] - Disposition Disposition (needs filled in before D/C Order can be placed): Home, Self Care 11/16/23 1038<Electronically signed by Hi Garcia MD>Hi Garcia MD CC: Dr. Sommer Resendiz MD; Dr. Daron Benton MD ~ Signed [facility] Work Phone: Discharge summary Author [facility] November 16, 2023 10:51am Note Date/Time November 16, 2023 10:50am [facility] Medical Records Department [address] [place] [address] Discharge Summary 11/16/23 1043 MR#: [id number] Acct: [id number] Name: ANGÉLICA YO Rep #:[id number] : 1955 68 From: Hi Llanos PCP: Dr. Daron Benton MD Status:ADM IN Location: [place] [id number] Providers Date of Admission: 11/15/23 Date of Discharge: 11/16/23 Primary Care Physician: Dr. Daron Benton MD Reason For Visit: INFLUENZA A, CHRISTOPHER Diagnosis Discharge Diagnosis (1) Influenza A: Status: Acute Code(s): J10.1 - Influenza due to other identified influenza virus with other respiratorymanifestations (2) Acute kidney injury: Status: Acute Code(s): N17.9 - Acute kidney failure, unspecified Plan The patient is a 68 y/o F who was admitted on the MedSur floor for nausea, vomiting and diarrhea for about 4 to 5 days, started with nausea and then vomiting and diarrhea. Denies blood in the stool or vomiting. Patient blood pressure was also low at home and is not able to eat or drink much. Mild abdominal cramping with less urine output but denies burning micturition. No fever or chills. #1. Influenza A acute viral syndrome with nausea vomiting and diarrhea and associated hypovolemia and hypotension: Patient is admitted in the MedSur floor. Patient resuscitated well IV fluid normal saline. Chest x-ray done in EDand on 11/16 individually reviewed and shows atelectasis on the right lower lung. Possibility of infiltrate in the right lung base/evolving pneumonia compared to previous x-ray of 10/05/2023. Mild leukopenia and thrombocytopenia. Patient is out of time window, and duration of illness more than 4 days therefore not Tamiflu is appropriate. Discussed with the pharmacist and use only for outpatient treatment of influenza A is 48 hours but if patient is very sick like an ICU admission may be 3 to 4 days. Influenza A PCR is positive. Patient's symptoms getting better. Patient discharged on Mucinex DM incentive spirometry and PEP. #2. Acute kidney injury with Acute hypotonic hypovolemic hyponatremia and hypochloremia on CKD stage IIIa: Admission BUN/Cr 64/2.51, prior baseline creatinine noted to be primarily 0.8-1.0. Patient is being treated with IV fluid. Creatinine improved to 1.59. Serum sodium also improved to 135. Continue IV fluid while patient is here and discharge in afternoon patient wants to go home. Advised to continue oral intake. #3. Chronic pain syndrome: Patient takes oxycodone 10 mg every 6 hourly and will decrease to 5 mg every 8 hourly as needed because of hypotension and CHRISTOPHER. Patient wants her oxycodone back to 10 mg every 6 hourly. She states she has multiple rheumatologic problems chronic osteoporosis, psoriatic arthritis and multiple sclerosis and her all body including the spine pelvis and hip and thighs hurt. #4. Carotid disease: Status post right CEA, continue patient home Plavix regimen, holding hypertensive regimen as noted and noted statin intolerance/allergy. #5. PAD: Status post iliac artery stent previously, continue patient home Plavix regimen, holding hypertensive regimen as noted and noted statin intolerance/allergy. #6. Hx TIA: Will continue patient home Plavix regimen, holding hypertensive regimen as noted and noted statin intolerance/allergy. #7. Nonobstructive CAD: Will continue patient home Plavix regimen, holding hypertensive regimen as noted and noted statin intolerance/allergy. #8. Tobacco Abuse: Encouraged cessation, inpatient consultation per RT #9. Multiple sclerosis: From current list not on aggressive regimen, only notedto be on gabapentin and also on baclofen, both of which as noted above will be temporarily renally dosed and will need to again be altered based on further renal functions. Encourage continued outpatient follow-up with neurology. PT/OT/case management consulted for discharge planning. #10. Psoriatic arthritis: Prior was on prednisone, not current taking. Also, asnoted on chronic pain regimen with renal changes as noted. #11. Hypertension: Given presentation with notable hypotension holding all regimen as well as noted acute kidney injury. #12. Hyperlipidemia: Noted statin allergy, defer to outpatient. #13. Hypothyroidism: History of previous goiter status post partial thyroidectomy, continue home synthroid regimen. #14. History cerebral aneurysm: Status post coil embolization. #15. DVT prophylaxis: Heparin. #16. CODE status: Patient HCPOA and living will are not in place but she notes her sons would be her decisions makers if she was unable. Discussed CODE status at length including difference between FULL code, DNR-CCA and DNR-CC status. Following discussions about the differences in these status, requested Full Codestatus. Discharge medication reconciliation done. Discharge follow-up instructions completed. Discharge process discussed with the patient and all questions wereanswered to patient's satisfaction. Follow with PCP in 1 to 2 weeks Total time spent, exact 35 minutes on discharge meds reconciliation, examination, coordination of care with nurses and ancillary staff, review of imaging and blood test and discussion with the patient on follow-up instructions. Medications at Discharge Home Medications cholecalciferol (vitamin D3) 125 mcg (5,000 unit) tablet 5,000 unit PO DAILY supplement 12/16/13 gabapentin 800 mg tablet 800 mg PO TID MS 07/16/18 baclofen 20 mg tablet 20 mg PO Q8H 08/11/21 levothyroxine 50 mcg tablet 50 mcg PO DAILY 08/11/21 oxycodone 10 mg tablet 10 mg PO Q6H PRN 05/24/23 clopidogrel 75 mg tablet 75 mg PO DAILY dose increased, pt is OUT of med, pleasefill #90 TABLETS 06/01/23 lisinopril 5 mg tablet 5 mg PO DAILY #30 tabs 11/02/23 dextromethorphan-guaifenesin ER 60 mg-1,200 mg tab,extend release,12hr (Mucinex DM) 1 tab PO Q12H 7 days #14 tabs 11/16/23 Physical Exam Narrative Seen and examined. Patient has mild cough. Nausea and vomiting and diarrhea has resolved. Kidney function getting better. Patient continues to smoke 5 cigarettes/day. Physical exam General: Alert, Oriented x3, Cooperative HEENT: Atraumatic, PERRLA, EOMI, Normocephalic Oral: No Gingival or Mucosal Lesions/ Ulcerations Neck: Supple, No JVD, Negative Carotid Bruits Lungs: Air entry diminished in bilateral lung bases. Mild coarse crepitations bilateral lungs Cardiovascular: Regular rate, Regular Rhythm, Normal S1, Normal S2, No murmurs Abdomen: Bowel Sounds Present, Soft, Non Tender, Non-Distended : No renal angle tenderness. No suprapubic tenderness. Extremities: No edema, Capillary Refill Less than 3 Seconds Skin: No rashes, No breakdown Musculoskeletal: Mild tenderness over the spine lower back and thigh area, chronic osteoporosis. ROM restricted at hips and spine. Neurological: Cranial nerves II-XII grossly intact, DTR 2+/4. No acute focal neurological deficit. Psych/Mental Status: Normal Affect, Appropriate. Weight / BMI Weight Weight: 119 lb 14.903 oz Body Mass Index (BMI) 19.9 ABG / Lab / Microbiology Data 11/16/23 05:50 11/16/23 05:50 Laboratory: Laboratory Results - last 24 hr 11/15/23 11:30: WBC 4.9, RBC 4.74, Hgb 13.7, Hct 40.9, MCV 86.3, MCH 28.9, MCHC 33.5, RDW Std Deviation 46.6 H, RDW Coeff of David 14.6, Plt Count 164, MPV 10.1, Immature Gran % (Auto) 0.600, Neut % (Auto) 70.4 H, Lymph % (Auto) 14.3 L, Mesa % (Auto) 14.5 H, Eos % (Auto) 0.0, Baso % (Auto) 0.2, Absolute Neuts (auto) 3.4,Absolute Lymphs (auto) 0.70 L, Nucleated RBC % 0, Sodium 130 L, Potassium 3.9, Chloride 97 L, Carbon Dioxide 21.0, Anion Gap 12, BUN 64 H, Creatinine 2.51 H, Estim Creat Clear Calc 19.03, Est GFR (MDRD) Af Amer 24 L, Est GFR (MDRD) Non-Af20 L, BUN/Creatinine Ratio 25.5 H, Glucose 80, Calcium 8.1 L, Total Bilirubin 0.30, AST 34, ALT 27, Alkaline Phosphatase 104, Total Protein 6.9, Albumin 3.3, Globulin 3.6, Albumin/Globulin Ratio 0.9, Lipase 60, Procalcitonin 0.24 H 11/15/23 15:55: Urine Color Yellow, Urine Clarity Sl. Cloudy, Urine pH 5.0, Ur Specific Flaxton 1.015, Urine Protein 15 H, Urine Glucose (UA) Normal, Urine Ketones 5 H, Urine Occult Blood 25 H, Urine Nitrite Negative, Urine Bilirubin Negative, Urine Urobilinogen Normal, Ur Leukocyte Esterase 100 H, Urine RBC 0-5 SEEN, Urine WBC 5-10 SEEN, Ur Squamous Epith Cells 5-10 SEEN, Calcium Oxalate Crystal RARE, Urine Bacteria RARE, Urine Mucus 0 SEEN 11/16/23 05:50: WBC 3.8 L, RBC 4.20, Hgb 12.2, Hct 37.1, MCV 88.3, MCH 29.0, MCHC 32.9, RDW Std Deviation 48.2 H, RDW Coeff of David 14.8 H, Plt Count 136 L, MPV 10.1, Immature Gran % (Auto) 0.500, Neut % (Auto) 57.7, Lymph % (Auto) 25.5,Mesa % (Auto) 15.7 H, Eos % (Auto) 0.3, Baso % (Auto) 0.3, Absolute Neuts (auto)2.2, Absolute Lymphs (auto) 0.96, Nucleated RBC % 0, Sodium 135 L, Potassium 3.6, Chloride 107, Carbon Dioxide 21.0, Anion Gap 7, BUN 42 H, Creatinine 1.59 H, Estim Creat Clear Calc 28.68, Est GFR (MDRD) Af Amer 41 L, Est GFR (MDRD) Non-Af 34 L, BUN/Creatinine Ratio 26.4 H, Glucose 73 L, Calcium 7.4 L, Total Bilirubin 0.40, AST 28, ALT 23, Alkaline Phosphatase 90, Total Protein 5.9 L, Albumin 2.9 L, Globulin 3.0, Albumin/Globulin Ratio 1.0 Microbiology: Microbiology 11/15/23 12:46 Mucosa - Nasopharyngeal SARS-CoV-2, Influenza & RSV (PCR) - Final Influenzae A Radiography Diagnostic Testing: Radiology Impression Chest X-Ray 11/15/23 12:43 IMPRESSION: Minimal atelectasis and/or possible evolving pneumonia within the left lower lung. Electronically Signed: Niki Mojica MD at 13:03 EST Reading Location ID and State: [facility] / [place] Tel , Service support , D/C Instructions Discharge Diet: No restrictions Weight Bearing Status: Weight bearing as tolerated Call your doctor if you observe: Fever of 101 or Higher, Coldness, Increased Pain, Numbness or Tingling, Change in Color, Inability to urinate, Inability to have a bowel movement, Using more than 1 pad per hour, Shortness of breath, Dizziness, Fainting spells, Swelling in the ankles, Chest pain, Prolonged hiccupping, Increased palpitations (irregular heartbeat) and Calf discomfort When: IN 2 WEEKS Meaningful Use Info Meaningful Use Diagnoses (Choose all that apply): None applicable Discharge Plan Admission Admit Date/Time: 11/15/23 15:13 Primary Reason for Your Visit: Influenza A bronchitis Attending Provider: Hi Garcia Primary Care Provider: Daron Benton Consulting Providers: Sommer Resendiz Instructions Additional Instructions / Restrictions: Continue incentive spirometry and PEP for 1 week Discharge Orders/Prescriptions Prescriptions: New dextromethorphan-guaifenesin [Mucinex DM] 60-1,200 mg tablet extended release 12 hr 1 tab PO Q12H 7 Days Qty: 14 0RF Continued gabapentin 800 mg tablet 800 mg PO TID baclofen 20 mg tablet 20 mg PO Q8H levothyroxine 50 mcg tablet 50 mcg PO DAILY Patient Comments: take 1 tablet by mouth once daily oxycodone 10 mg tablet 10 mg PO Q6H PRN Patient Comments: take 1 tablet by mouth twice a day if needed for pain cholecalciferol (vitamin D3) 5,000 UNIT tablet 5,000 unit PO DAILY Patient Comments: supplement clopidogrel 75 mg tablet 75 mg PO DAILY Qty: 90 3RF Held lisinopril 5 mg tablet 5 mg PO DAILY Qty: 30 11RF Hold Instructions: Hold for 7 days. Referrals / Follow Up: Daron Benton MD [Primary Care Provider] - Disposition Disposition (needs filled in before D/C Order can be placed): Home, Self Care Charges/Coding Addendum Addendum: Patient was admitted as inpatient but was discharged because of recovery of hyponatremia and CHRISTOPHER with IV fluid replacement sooner than expected at time of admission. Patient wants to go home. Visit Charges Inpatient E&M: 30138 Disch Hosp >30min 11/16/23 1051 <Electronically signed by Hi Garcia MD> Cosigner Signature (if applicable): CC: Dr. Daron Benton MD; Dr. Hi Garcia MD~ Signed [facility] Work Phone: Discharge summary Author Sachin Murillo [facility] November 21, 2023 11:01am Note Date/Time November 21, 2023 11 :01am [facility] Medical Records Department [address] [place] [address] Discharge Summary 11/21/23 1057 MR#: [id number] Acct: [id number] Name: ANGÉLICA YO Rep #:[id number] 1 : 1955 68 From: Sachin chan MD PCP: Dr. Daron Benton MD Status:ADM IN Location: [place] [address] Providers Date of Admission: 11/18/23 Primary Care Physician: Dr. Daron Benton MD Reason For Visit: PAF NEW ONSET, ? GI BLEED, RECENT INFLUENZA A Diagnosis Discharge Diagnosis (1) Atrial fibrillation: Status: Acute Code(s): I48.91 - Unspecified atrial fibrillation Medications at Discharge Home Medications cholecalciferol (vitamin D3) 125 mcg (5,000 unit) tablet 5,000 unit PO DAILY supplement 12/16/13 gabapentin 800 mg tablet 800 mg PO TID MS 07/16/18 baclofen 20 mg tablet 20 mg PO Q8H MS 08/11/21 levothyroxine 50 mcg tablet 50 mcg PO DAILY thyroid 08/11/21 oxycodone 10 mg tablet 10 mg PO Q6H PRN pain 05/24/23 clopidogrel 75 mg tablet 75 mg PO DAILY dose increased, pt is OUT of med, pleasefill #90 TABLETS 06/01/23 lisinopril 5 mg tablet 5 mg PO DAILY blood pressure #30 tabs 11/02/23 dextromethorphan-guaifenesin ER 60 mg-1,200 mg tab,extend release,12hr (Mucinex DM) 1 tab PO Q12H cough/congest 7 days #14 tabs 11/16/23 apixaban 5 mg tablet (Eliquis) 5 mg PO BID 30 days #60 tabs 11/21/23 metoprolol tartrate 25 mg tablet 12.5 mg (1/2 x 25 mg) PO BID 30 days #30 tabs 11/21/23 Hospital Course Operations None Procedures 2-D Echocardiogram Summary of Care Provided Minutes Spent on Discharge: 35 Hospital Course: Per HPI: The patient is a 68 y/o F w/ PMHx: Hx Cerebral aneurysm, Chronic pain syndrome, HTN, HLD, Hx TIA, Multiple Sclerosis, Nonobstructive CAD, Psoriatic arthritis, PAD, NS SVT, GERD, Hypothyroidism, Carotid disease, Tobacco use, admitted 11/15/23-11/16/23 with influenza A and acute kidney injury associated to now represents to the [facility] ED on 11/18/23 with history of initially feeling improved due to discharge however the last 24 hours she has been feeling worse with noted dark stools on Plavix with no history of previous history of GI bleedwith no abdominal pain with still some mild persistent nausea mostly when she moves quickly but no emesis currently with generalized discomfort and noted soreness around her chest and upper back prompting eventual ED reevaluation. Workup in the ED included T97.7, heart rate 106, BP 171/101, respiratory rate 20, 96% on room air, CBC with WBC 5.5, hemoglobin 12.9, platelet 123 without marked shift, CMP with glucose 116, BUN/creatinine 12/0.99, GFR 59, hepatic profile not marked appearing, troponin 60 with recent presentation with no troponin obtained of note and last noted 10/05/2023 troponin 8, urinalysis with specific remedy 1.015, ketone 5, occult blood 25, negative nitrate, leukocyte esterase 25 with no marked urine WBCs with 5-10 squamous epithelial cells this poor sample with 1+ bacteria noted, chest x-ray with a small focus of acute or chronic inflammatory change right upper lobe and minor bibasilar atelectasis, EKG with new onset atrial fibrillation with rate 102 with no acute evidence of ischemia. In the ED patient administered 1 L normal saline and Zofran 4 mg IV x1. Hospital course: 1. New onset paroxysmal A-fib/history of CVA/PAD with iliac stents/history of TIA/nonobstructive CAD/HTN/HLD?68-year-old female who was recently admitted for influenza A presented back to the hospital with palpitations and A-fib. She wasstarted on low-dose metoprolol twice daily and her symptoms resolved. There is also some concern for possible GI bleed because she was seeing black stools however fecal occult was negative for blood and she admits to taking Pepto-Bismol. Hemoglobin is remained stable anywhere between 10 and 11.5 therefore she was started on Eliquis at 5 mg p.o. twice daily given her stroke risk factors in the setting of A-fib. I discussed with her the plan for possible discharge today she expressed understanding of the risk and benefits of going home and would like to go home today. Echo during her stay demonstrated EF of 70% with stage II diastolic dysfunction with an RVSP of 55 mmHg. She was set tohave an echo next week which is no longer needs to be done and I do recommend that she follow-up with cardiology and her PCP in the next 1 to 2 weeks. She will need outpatient follow-up with a CBC to monitor her hemoglobin secondary toher anticoagulation. 2. Multiple sclerosis, chronic pain, hypothyroidism, psoriatic arthritis are all chronic medical conditions which complicate her care. Her home medications were continued where appropriate Physical Exam Narrative General: Alert, Oriented x3, Cooperative, No apparent distress HEENT: Atraumatic, PERRLA, EOMI, Normocephalic Oral: Moist Mucosa Neck: Supple, No JVD Lungs: Diminished, Normal air movement, No rhonchi, No wheeze, No rales Cardiovascular: Regular rate, Regular Rhythm, Normal S1, Normal S2, No murmurs Abdomen: Soft, Non Tender, Non-Distended, No Hepato-splenomegaly Extremities: No edema, Capillary Refill Less than 3 Seconds Skin: No rashes, No breakdown Musculoskeletal: No Tenderness to Palpation of Joints or Extremities Neurological: Cranial nerves II-XII grossly intact, Motor Exam 5/5 strength throughout, Sensory exam intact to light touch and pain Psych/Mental Status: Normal Affect, Appropriate Weight / BMI Weight Weight: 122 lb 9.232 oz Body Mass Index (BMI) 20.4 ABG / Lab / Microbiology Data 11/21/23 05:15 11/20/23 06:30 Laboratory: Laboratory Results - last 24 hr 11/21/23 05:15: WBC 4.7, RBC 3.54 L, Hgb 10.2 L, Hct 30.8 L, MCV 87.0, MCH 28.8,MCHC 33.1, RDW Std Deviation 48.1 H, RDW Coeff of David 15.0 H, Plt Count 141 L, MPV 9.7, Immature Gran % (Auto) 3.400 H, Neut % (Auto) 62.0, Lymph % (Auto) 14.3L, [place] % (Auto) 18.8 H, Eos % (Auto) 0.9, Baso % (Auto) 0.6, Absolute Neuts (auto) 2.9, Absolute Lymphs (auto) 0.67 L, Nucleated RBC % 0 Microbiology: Microbiology 11/18/23 15:24 Stool Stool Occult Blood (CARMEN) - Final D/C Instructions Discharge Diet: Low fat / Low cholesterol Call your doctor if you observe: Fever of 101 or Higher, Shortness of breath, Dizziness, Fainting spells, Swelling in the ankles, Chest pain and Increased palpitations (irregular heartbeat) Meaningful Use Info Meaningful Use Diagnoses (Choose all that apply): None applicable Discharge Plan Admission Admit Date/Time: 11/18/23 14:48 Attending Provider: Sachin Murillo Primary Care Provider: Daron Benton Consulting Providers: Sommer Resendiz Instructions Additional Instructions / Restrictions: Follow-up with your PCP in 3 to 5 days to monitor your hemoglobin. Your dark stools were likely due to Pepto-Bismol and your hemoglobin has remained stable here but you were started on anticoagulation for your atrial fibrillation in order to decrease risk of stroke which can worsen any bleeding. Discharge Orders/Prescriptions Prescriptions: New metoprolol tartrate 25 mg Tablet 12.5 mg PO BID 30 Days Qty: 30 0RF Eliquis 5 mg Tablet 5 mg PO BID 30 Days Qty: 60 0RF Continued gabapentin 800 mg tablet 800 mg PO TID baclofen 20 mg tablet 20 mg PO Q8H levothyroxine 50 mcg tablet 50 mcg PO DAILY Patient Comments: take 1 tablet by mouth once daily oxycodone 10 mg tablet 10 mg PO Q6H PRN Patient Comments: take 1 tab q6 PRN for pain lisinopril 5 mg tablet 5 mg PO DAILY Qty: 30 11RF Hold Instructions: Hold for 7 days. cholecalciferol (vitamin D3) 5,000 UNIT tablet 5,000 unit PO DAILY Patient Comments: supplement dextromethorphan-guaifenesin [Mucinex DM] 60-1,200 mg tablet extended release 12 hr 1 tab PO Q12H 7 Days Qty: 14 0RF clopidogrel 75 mg tablet 75 mg PO DAILY Qty: 90 3RF Referrals / Follow Up: Daron Benton MD [Primary Care Provider] - 11/27/23 11:00 am Betsey Lindquist PA [Med Staff - [facility]] - 12/21/23 1:00 pm Disposition Disposition (needs filled in before D/C Order can be placed): Home, Self Care Charges/Coding Visit Charges Inpatient E&M: 38649 Disch Hosp >30min 11/21/23 1101 <Electronically signed by Sachin Murillo MD> Cosigner Signature (if applicable): CC: Dr. Daron Benton MD; Dr. Sachin Murillo MD~ Signed [facility] Work Phone: Discharge summary Author Sachin Murillo [facility] December 07, 2023 2:21pm Note Date/Time December 07, 2023 2 :21pm [facility] Medical Records Department [address] [place] [id number] Discharge Summary 12/07/23 1417 MR#: [id number] Acct: [id number] Name: ANGÉLICA YO Rep #:[id number] : 1955 68 From: Sachin chan MD PCP: Dr. Daron Benton MD Status:ADM IN Location: ICU ICU02-1 Providers Date of Admission: 12/02/23 Primary Care Physician: Dr. Daron Benton MD Consultations 12/02/23 12:37 Consult: Tele-Neurology Routine Consulting Provider: [facility] Reason for Consult: Possible MS flareup EMERGENT Consult: No MD Notified: Yes Date Notified: 12/02/23 Time Notified: 11:39 Method of Notification: Answering Service Nursing Unit Staff Notify [facility] of Tele-Neurology Consult: Yes 12/04/23 06:18 Consult: Motion Picture Camera Lens Technician / Pulmonary Medicine Routine Consulting Provider: Intensivists/Pulmonary Med Reason for Consult: Mental Status Change EMERGENT Consult: No MD Notified: Yes Date Notified: 12/04/23 Time Notified: 06:19 Method of Notification: Text Reason For Visit: WEAKNESS Diagnosis Discharge Diagnosis (1) Weakness: Status: Acute Code(s): R53.1 - Weakness Medications at Discharge Home Medications cholecalciferol (vitamin D3) 125 mcg (5,000 unit) tablet 5,000 unit PO DAILY supplement 12/16/13 gabapentin 800 mg tablet 800 mg PO TID MS 07/16/18 baclofen 20 mg tablet 20 mg PO Q8H MS 08/11/21 levothyroxine 50 mcg tablet 50 mcg PO DAILY thyroid 08/11/21 oxycodone 10 mg tablet 10 mg PO Q6H PRN pain 05/24/23 clopidogrel 75 mg tablet 75 mg PO DAILY dose increased, pt is OUT of med, pleasefill #90 TABLETS 06/01/23 lisinopril 5 mg tablet 5 mg PO DAILY blood pressure #30 tabs 11/02/23 dextromethorphan-guaifenesin ER 60 mg-1,200 mg tab,extend release,12hr (Mucinex DM) 1 tab PO Q12H cough/congest 7 days #14 tabs 11/16/23 apixaban 5 mg tablet (Eliquis) 5 mg PO BID 30 days #60 tabs 11/21/23 metoprolol tartrate 25 mg tablet 12.5 mg (1/2 x 25 mg) PO BID 30 days #30 tabs 11/21/23 amoxicillin 875 mg-potassium clavulanate 125 mg tablet 1 tab PO BID 4 days #8 tabs 12/07/23 Hospital Course Operations None Procedures None Summary of Care Provided Minutes Spent on Discharge: 36 Hospital Course: Per HPI: ANGÉLICA YO, is a 68 F with past medical history is again for multiple sclerosis, recent hospitalization for acute influenza A infection who presented with generalized weakness. Per patient symptoms have been going on for couple of days. Patient however denied any subjective fever no chills. Presented to the emergency department initial workup including head CT came backunremarkable urinalysis however did demonstrate positive leukocyte esterase. Admitted to a monitored bed for further management Hospital Course: 1. Progressive generalized weakness in the setting of MS with hypertensive urgency/aspiration pneumonia/chronic pain ? Differential diagnoses include patient possible cystitis versus MS flareup. Plan is to treat the underlying suspected cystitis and if no improvement patientto be initiated on steroids consult subsequently placed to teleneurology 12/03/2023: Stroke alert was called for change though it is unclear as to what her baseline has been since admission with a UTI and generalized weakness will attempt to get an MRI without contrast to evaluate for possible stroke in the meantime she is significantly hypertensive and she was given a dose of labetalolin the CT scanner this will be made every 4 as needed as well as the hydralazineshe has on board currently receiving 1 g of Solu-Medrol daily per recommendations neurology 12/04/2023: Given her behaviors may need to be intubated for an MRI will await neurology evaluation of her this afternoon. Blood cultures and urine cultures are negative. She did have an aspiration event yesterday when she went for the MRI where she laid flat she has a white count today that is likely related to her 1 g of Solu-Medrol daily however given her aspiration event yesterday she was started on Unasyn. EEG is pending. She had a CTA of the head and neck overnight which is unremarkable 12/05/2023: NG placed overnight restart her home medications. Repeat EEG is pending and CT of the brain was unremarkable appreciate neurology's assistance 12/06/2023: Symptomatology is completely resolved continue with Unasyn and transfer her out of the ICU 12/07/2023: I discussed with her the plan for discharge today she expressed understanding of the risk benefits going home and would like to go home today. I discussed with her the need to continue with Augmentin for another couple of days just to complete treatment for possible aspiration pneumonia as she aspirated during her initial attempt at an MRI. She needs to follow-up with herown neurologist within the next couple weeks and I also recommend follow-up withher PCP in 3 to 5 days to obtain lab work and monitor her renal function as wellas her anemia. She was here at the end of October in the beginning of November she was complaining of dark stools but was having GI upset from flu and was taking Pepto-Bismol and at that time her fecal occult negative. Hemoglobin is now down to 9.3 with no active signs of bleeding however she is on Eliquis for her new onset A-fib earlier this month. I do also recommend that she follow-up with cardiology as an outpatient 2. paroxysmal A-fib/history of CVA/PAD with iliac stent/history of TIA/nonobstructive CAD/HTN/HLD ? Continue with her home Eliquis during her last admission her A-fib had resolved prior to discharge ? Echo with an EF of 70% and stage II diastolic dysfunction with an RVSP of 55 mmHg the last time she was here ? She also had dark stools last time she was here but she was taking Pepto- Bismol at the time ? Continue with her home blood pressure medications monitor make adjustments as necessary 3. Anemia ? Iron studies were unremarkable ? Did not provide a stool sample for fecal occult so we will monitor as an outpatient as she is hemodynamically stable. She is aware and understands the risk and benefits of going home 4. Hypothyroidism ? Stable ? Continue with Synthroid Physical Exam Narrative General: Alert and oriented x 3, cooperative, no acute distress HEENT: Atraumatic, PERRLA, EOMI, Normocephalic Oral: Moist Mucosa Neck: Supple, No JVD Lungs: Diminished, Normal air movement, No rhonchi, No wheeze, No rales Cardiovascular: Regular rate, Regular Rhythm, Normal S1, Normal S2, No murmurs Abdomen: Soft, Non Tender, Non-Distended, No Hepato-splenomegaly Extremities: No edema, Capillary Refill Less than 3 Seconds Skin: No rashes, No breakdown Musculoskeletal: No Tenderness to Palpation of Joints or Extremities Neurological: No focal neurologic deficits, moves all extremities Psych/Mental Status: Flat Weight / BMI Weight Weight: 123 lb 7.342 oz Body Mass Index (BMI) 20.5 ABG / Lab / Microbiology Data 12/07/23 04:15 12/07/23 04:15 Laboratory: Laboratory Results - last 24 hr 12/07/23 04:15: WBC 7.3, RBC 3.02 L, Hgb 9.0 L, Hct 27.4 L, MCV 90.7, MCH 29.8, MCHC 32.8, RDW Std Deviation 51.9 H, RDW Coeff of David 15.6 H, Plt Count 216, MPV9.5, Immature Gran % (Auto) 1.100 H, Neut % (Auto) 71.0 H, Lymph % (Auto) 17.9 L, Mesa % (Auto) 9.8, Eos % (Auto) 0.1, Baso % (Auto) 0.1, Absolute Neuts (auto) 5.2, Absolute Lymphs (auto) 1.31, Nucleated RBC % 0, Sodium 142, Potassium 3.6, Chloride 111 H, Carbon Dioxide 26.0, Anion Gap 5, BUN 30 H, Creatinine 1.01, Estim Creat Clear Calc 46.47, Est GFR (MDRD) Af Amer 70, Est GFR (MDRD) Non-Af 58 L, BUN/Creatinine Ratio 29.7 H, Glucose 94, Calcium 7.7 L Microbiology: Microbiology 12/02/23 11:38 Blood Culture (Wb) - Anticubital Left Blood Culture - Final No growth in 5 days. 12/02/23 10:27 Urine, Catheterized Urine Culture - Final Culture exhibits no growth. 12/02/23 07:37 Mucosa - Nose SARS-CoV-2, Influenza & RSV (PCR) - Final D/C Instructions Discharge Diet: Low fat / Low cholesterol Call your doctor if you observe: Fever of 101 or Higher, Shortness of breath, Dizziness, Fainting spells, Swelling in the ankles, Chest pain and Increased palpitations (irregular heartbeat) Meaningful Use Info Meaningful Use Diagnoses (Choose all that apply): None applicable Discharge Plan Admission Admit Date/Time: 12/02/23 11:22 Attending Provider: Sachin Murillo Primary Care Provider: Daron Benton Consulting Providers: Ruby Wynn; Kiley Carpenter; Arleen Estrada; Rima Riggins; Roman Mckeon; Deepika Graham; Maurilio Garland; Phil Terry; SARI MENA; Jose Santos; Rhiannon Farris; Kt Friend; Angie Shields; Jo Ann Krishnamurthy; Johnny Sepulveda; Nikole Allison; Gerald Suh; Kristopher Hernández; Silvino Schmidt; Sarkis Brown; Geoffleigh Teixeira; Michele Rascon; Kirsten Azevedo; Joseph Desai; Samina Mortensen; Keyona Davidson Instructions Additional Instructions / Restrictions: Follow-up with your PCP in 3 to 5 days to obtain outpatient lab work to monitor your hemoglobin. As discussed if you do notice bright red blood per rectum thendiscontinue your Eliquis and Plavix and call your doctor or return to the hospital Discharge Orders/Prescriptions Prescriptions: New amoxicillin-pot clavulanate 875-125 mg tablet 1 tab PO BID 4 Days Qty: 8 0RF Continued gabapentin 800 mg tablet 800 mg PO TID baclofen 20 mg tablet 20 mg PO Q8H levothyroxine 50 mcg tablet 50 mcg PO DAILY Patient Comments: take 1 tablet by mouth once daily oxycodone 10 mg tablet 10 mg PO Q6H PRN Patient Comments: take 1 tab q6 PRN for pain lisinopril 5 mg tablet 5 mg PO DAILY Qty: 30 11RF Hold Instructions: Hold for 7 days. cholecalciferol (vitamin D3) 5,000 UNIT tablet 5,000 unit PO DAILY Patient Comments: supplement dextromethorphan-guaifenesin [Mucinex DM] 60-1,200 mg tablet extended release 12 hr 1 tab PO Q12H 7 Days Qty: 14 0RF metoprolol tartrate 25 mg Tablet 12.5 mg PO BID 30 Days Qty: 30 0RF Eliquis 5 mg Tablet 5 mg PO BID 30 Days Qty: 60 0RF clopidogrel 75 mg tablet 75 mg PO DAILY Qty: 90 3RF Referrals / Follow Up: Daron Benton MD [Primary Care Provider] - Within 1 Week Disposition Disposition (needs filled in before D/C Order can be placed): Home Health Service Charges/Coding Visit Charges Inpatient E&M: 05476 Disch Hosp >30min 12/07/23 1421 <Electronically signed by Sachin Murillo MD> Cosigner Signature (if applicable): CC: Dr. Daron Benton MD; Dr. Sachin Murillo MD~ Signed [facility] Work Phone: Evaluation + Plan note No data available for this section [facility] Evaluation note* Diagnosis Onset Date Resolution Status Effusion of left knee joint acute Left knee DJD acute Psoriatic arthritis acute Chronic pain chronic Peripheral vascular occlusive disease chronic Bilateral carotid artery stenosis chronic Essential (primary) hypertension chronic Nonobstructive atherosclerosis of coronary artery chronic Peripheral vascular occlusive disease chronic [facility] Work Phone: Evaluation note* Diagnosis Onset Date Resolution Status Peripheral vascular occlusive disease chronic Bilateral carotid artery stenosis chronic Essential (primary) hypertension chronic Nonobstructive atherosclerosis of coronary artery chronic Peripheral vascular occlusive disease chronic Bilateral carotid artery stenosis chronic Essential (primary) hypertension chronic Nonobstructive atherosclerosis of coronary artery chronic Peripheral vascular occlusive disease chronic [facility] Work Phone: Evaluation note* Diagnosis Onset Date Resolution Status Cardiac murmur acute Bilateral carotid artery stenosis chronic Essential (primary) hypertension chronic Nonobstructive atherosclerosis of coronary artery chronic Peripheral vascular occlusive disease chronic [facility] Work Phone: Evaluation noteNo assessment information available [facility] Work Phone: Evaluation note* Diagnosis Onset Date Resolution Status Effusion of left knee joint acute Left knee DJD acute Psoriatic arthritis acute Cardiac murmur acute [place] (dyspnea on exertion) ac [place] Bilateral carotid artery stenosis chronic Essential (primary) hypertension chronic Nonobstructive atherosclerosis of coronary artery chronic Peripheral vascular occlusive disease chronic [facility] Work Phone: Evaluation note* Diagnosis Onset Date Resolution Status Effusion of left knee joint acute Left knee DJD acute Psoriatic arthritis acute Cardiac murmur acute [place] (dyspnea on exertion) [place] Bilateral carotid artery stenosis chronic Essential (primary) hypertension chronic Nonobstructive atherosclerosis of coronary artery chronic Peripheral vascular occlusive disease chronic Left knee DJD acute Psoriatic arthritis acute [facility] Work Phone: Evaluation note* Diagnosis Onset Date Resolution Status Effusion of left knee joint acute Left knee DJD acute Psoriatic arthritis acute Cardiac murmur acute [place] (dyspnea on exertion) [place] Bilateral carotid artery stenosis chronic Essential (primary) hypertension chronic Nonobstructive atherosclerosis of coronary artery chronic Peripheral vascular occlusive disease chronic Left knee DJD acute Psoriatic arthritis acute 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 Effusion of left knee joint acute Left knee DJD acute Psoriatic arthritis acute [facility] Work Phone: Evaluation note* Diagnosis Onset Date Resolution Status Left knee DJD acute Psoriatic arthritis acute 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 Effusion of left knee joint acute Left knee DJD acute Psoriatic arthritis acute [facility] Work Phone: Evaluation note* Diagnosis Onset Date Resolution Status 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 Effusion of left knee joint acute Left knee DJD acute Psoriatic arthritis acute Intercostal neuralgia acute Thoracic back pain acute [facility] Work Phone: Evaluation note* Diagnosis Onset Date Resolution Status Effusion of left knee joint acute Left knee DJD acute Psoriatic arthritis acute Intercostal neuralgia acute Thoracic back pain acute Psoriatic arthritis acute Thoracic back pain acute Multiple sclerosis chronic [facility] Work Phone: Evaluation note* Diagnosis Multiple sclerosis (HCC) Multiple sclerosis documented in this encounter [facility] BreakerEvaluation note* Diagnosis Multiple sclerosis (HCC) Multiple sclerosis documented in this encounter [facility] HealthEvaluation note* Diagnosis Onset Date Resolution Status Psoriatic arthritis acute Thoracic back pain acute Multiple sclerosis chronic Bilateral carotid artery stenosis chronic Essential (primary) hypertension chronic Nonobstructive atherosclerosis of coronary artery chronic Peripheral vascular occlusive disease chronic [facility] Work Phone: Evaluation note* Diagnosis Onset Date Resolution Status Bilateral carotid artery stenosis chronic Essential (primary) hypertension chronic Nonobstructive atherosclerosis of coronary artery chronic Peripheral vascular occlusive disease [facility] Work Phone: Evaluation note* Diagnosis Multiple sclerosis (HCC)- Primary Multiple sclerosis Cerebrovascular disease, unspecified Primary hypertension Unspecified essential hypertension documented in this encounter [facility] HealthEvaluation note* Diagnosis Onset Date Resolution Status Knee joint effusion acute [facility] Work Phone: Evaluation note* Diagnosis Onset Date Resolution Status Knee joint effusion acute Bilateral carotid artery stenosis chronic Essential (primary) hypertension chronic Nonobstructive atherosclerosis of coronary artery chronic Peripheral vascular occlusive disease chronic Acute hyponatremia acute Acute kidney injury acute Dehydration acute Influenza A acute [facility] Work Phone: Evaluation note* Diagnosis Onset Date Resolution Status Knee joint effusion acute Bilateral carotid artery stenosis chronic Essential (primary) hypertension chronic Nonobstructive atherosclerosis of coronary artery chronic Peripheral vascular occlusive disease chronic Acute hyponatremia acute Acute kidney injury acute Dehydration acute Influenza A acute Atrial fibrillation acute Chest pressure acute Elevated troponin acute Influenza A acute New onset atrial fibrillation acute [facility] Work Phone: Evaluation note* Diagnosis Onset Date Resolution Status Knee joint effusion acute Bilateral carotid artery stenosis chronic Essential (primary) hypertension chronic Nonobstructive atherosclerosis of coronary artery chronic Peripheral vascular occlusive disease chronic Acute kidney injury acute Acute hyponatremia resolved Dehydration resolved Atrial fibrillation acute Chest pressure acute Elevated troponin acute New onset atrial fibrillation acute [facility] Work Phone: Evaluation note* Diagnosis Onset Date Resolution Status Knee joint effusion acute Bilateral carotid artery stenosis chronic Essential (primary) hypertension chronic Nonobstructive atherosclerosis of coronary artery chronic Peripheral vascular occlusive disease chronic Acute kidney injury acute Acute hyponatremia resolved Dehydration resolved Atrial fibrillation acute Chest pressure acute Elevated troponin acute New onset atrial fibrillation acute Weakness acute [facility] Work Phone: Evaluation note* Diagnosis Onset Date Resolution Status Knee joint effusion acute Bilateral carotid artery stenosis chronic Essential (primary) hypertension chronic Nonobstructive atherosclerosis of coronary artery chronic Peripheral vascular occlusive disease chronic Acute kidney injury acute Acute hyponatremia resolved Dehydration resolved Atrial fibrillation acute Chest pressure acute Elevated troponin acute New onset atrial fibrillation acute Dizziness acute Weakness acute Multiple sclerosis chronic [facility] Work Phone: Evaluation note* Diagnosis Multiple sclerosis (HCC)- Primary Multiple sclerosis Dizziness Dizziness and giddiness Imbalance Abnormality of gait Vision disturbance Unspecified visual disturbance [facility] Diagnosis Onset Date Resolution Status Knee joint effusion acute Bilateral carotid artery stenosis chronic Essential (primary) hypertension chronic Nonobstructive atherosclerosis of coronary artery chronic Peripheral vascular occlusive disease chronic Acute kidney injury acute Acute hyponatremia resolved Dehydration resolved Atrial fibrillation acute Chest pressure acute Elevated troponin acute New onset atrial fibrillation acute Dizziness resolved Weakness resolved New onset atrial fibrillation acute Bilateral carotid artery stenosis chronic Essential (primary) hypertension chronic Peripheral vascular occlusive disease chronic [facility] Work Phone: Evaluation note* Diagnosis Multiple sclerosis (HCC) [facility] Diagnosis Onset Date Resolution Status Knee joint effusion acute Bilateral carotid artery stenosis chronic Essential (primary) hypertension chronic Nonobstructive atherosclerosis of coronary artery chronic Peripheral vascular occlusive disease chronic Acute kidney injury acute Acute hyponatremia resolved Dehydration resolved Atrial fibrillation acute Chest pressure acute Elevated troponin acute New onset atrial fibrillation acute Dizziness resolved Weakness resolved New onset atrial fibrillation acute Bilateral carotid artery stenosis chronic Essential (primary) hypertension chronic Peripheral vascular occlusive disease chronic Acute hypotension acute Atrial fibrillation acute Atypical chest pain acute Community acquired pneumonia acute Occult blood positive stool acute Signs and symptoms of anemia acute Symptomatic anemia acute Essential (primary) hypertension chronic Peripheral vascular occlusive disease [facility] Work Phone: Evaluation note* Diagnosis Onset Date Resolution Status Bilateral carotid artery stenosis chronic Essential (primary) hypertension chronic Nonobstructive atherosclerosis of coronary artery chronic Peripheral vascular occlusive disease chronic Acute kidney injury acute Acute hyponatremia resolved Dehydration resolved Atrial fibrillation acute Chest pressure acute Elevated troponin acute New onset atrial fibrillation acute Dizziness resolved Weakness resolved New onset atrial fibrillation acute Bilateral carotid artery stenosis chronic Essential (primary) hypertension chronic Peripheral vascular occlusive disease chronic Acute hypotension acute Atrial fibrillation acute Atypical chest pain acute Community acquired pneumonia acute Occult blood positive stool acute Signs and symptoms of anemia acute Symptomatic anemia acute Essential (primary) hypertension chronic Peripheral vascular occlusive disease [facility] Work Phone: Evaluation note* Diagnosis Onset Date Resolution Status Acute kidney injury acute Acute hyponatremia resolved Dehydration resolved Chest pressure acute Elevated troponin acute New onset atrial fibrillation acute Dizziness resolved Weakness resolved New onset atrial fibrillation acute Bilateral carotid artery stenosis chronic Community acquired pneumonia acute Acute hypotension resolved Atypical chest pain resolved Occult blood positive stool resolved Signs and symptoms of anemia resolved Symptomatic anemia resolved [facility] Work Phone: Evaluation note* Diagnosis Cough [facility]* Diagnosis Other specified symptoms and signs involving the circulatory and respiratory systems- Primary Cerebrovascular disease, unspecified documented in [facility] encounter [facility]* Diagnosis Multiple sclerosis (HCC) Multiple sclerosis documented in this encounter [facility]* Diagnosis Multiple sclerosis (HCC)- Primary Multiple sclerosis Mild cognitive impairment Mild cognitive impairment, so stated Fatigue, unspecified type Deficiency of multiple nutrient elements Other nutritional deficiency documented in this encounter [facility]* Diagnosis Multiple sclerosis (HCC)- Primary Multiple sclerosis Dysphasia Other speech disturbance [facility] Author Sommer Resendiz [facility] November 15, 2023 3:44pm Note Date/Time November 15, 2023 3:14pm [facility] Medical Records Department [facility] [place] [address] H&P Exam - Hospitalist 11/15/23 1512 MR#: [id number] Acct: [id number] Name: ANGÉLICA YO Rep #:[id number] 3 : 1955 68 From: Sommer Resendiz MD PCP: Dr. Daron Benton MD Status:ADM IN Location: [facility] MO019-3 HPI - General General Date of Admission: 11/15/23 Date of Service: 11/15/23 Chief Complaint: Poor intake, malaise, fatigue, weakness, N/V/D HPI Narrative The patient is a 68 y/o F w/ PMHx: Hx Cerebral aneurysm, Chronic pain syndrome, HTN, HLD, Hx TIA, Multiple Sclerosis, Nonobstructive CAD, Psoriatic arthritis, PAD, NS SVT, GERD, Hypothyroidism, Carotid disease, Tobacco use who presents to the [facility] ED on 11/15/23 with history of 4 to 5 days of initially nausea followed by bouts of emesis and loose stools although this has been decreasing with poor oral intake although she has still been attempting to have good water intake butit has not been at her baseline and she has had low blood pressures when she is checked them at home with recent issues of the last couple months with decreasing blood pressures prompting decreases in her medications with mild abdominal cramping the day prior but no pain nor any fevers or chills prompting eventual ED evaluation. Patient does have chronic pain syndrome of note and recently did have her oxycodone increased to 20 mg but returned back down to 10 mg because she noted that it was too strong. Workup in the ED included T97.8, heart rate 68, BP initially 83/61 rise in the ED up to 113/67 however most recently 98/56, respiratory rate 12, 98% on room air initially with most recent repeat respiratory rate 12, 94% on room air and heart rate 54, CBC with WBC 4.9,hemoglobin 13.7, platelet 164 with lymphopenia, CMP with sodium 130, chloride 97, BUN/creatinine 64/2.51, hepatic profile unremarkable, lipase 60, chest x-raywith minimal atelectasis and/or possible evolving pneumonia within the left lower lung, rapid SARS COVID, RSV and influenza with a positive influenza A, EKGwith sinus bradycardia with no acute evidence of ischemia however QTc on the longer end at 42 MS. In the ED patient ministered Zofran 4 mg IV x 1 and 1 L normal saline. [facility] Medical History Angina pectoris Bilateral carotid artery stenosis Chronic pain syndrome Essential (primary) hypertension Fatty liver GERD (gastroesophageal reflux disease) Goiter History of transient ischemic attack (TIA) HLD (hyperlipidemia) Multiple sclerosis Nonobstructive atherosclerosis of coronary artery Nonsustained paroxysmal supraventricular tachycardia Osteoarthritis Osteoporosis Peripheral vascular occlusive disease Psoriasis Psoriatic arthritis Thrombocytopenia Home Medications cholecalciferol (vitamin D3) 125 mcg (5,000 unit) tablet 5,000 unit PO DAILY supplement 12/16/13 [History Last Taken 07/16/19] gabapentin 800 mg tablet 800 mg PO TID MS 07/16/18 [History Last Taken 07/16/19] baclofen 20 mg tablet 20 mg PO Q8H 08/11/21 [History Last Taken 01/18/22] levothyroxine 50 mcg tablet 50 mcg PO DAILY 08/11/21 [History Last Taken 01/18/22] oxycodone 10 mg tablet 10 mg PO Q6H PRN 05/24/23 [History Last Taken Unknown] clopidogrel 75 mg tablet 75 mg PO DAILY dose increased, pt is OUT of med, pleasefill #90 TABLETS 06/01/23 [Rx Last Taken Unknown] lisinopril 5 mg tablet 5 mg PO DAILY #30 tabs 11/02/23 [Rx Last Taken Unknown] Allergy/AdvReac Type Severity Reaction Status Date / Time colestipol [From Colestid] Allergy Mild unknown Verified 11/15/23 11:27 pregabalin [From Lyrica] Allergy Mild Hives Verified 11/15/23 11:27 amitriptyline Allergy Rash Verified 11/15/23 11:27 temazepam [From Restoril] AdvReac Mild Nausea/Vom/ Verified 11/15/23 11:27 Diarrhea Antihistamines - Alkylamine AdvReac Nausea/Vom/ Verified 11/15/23 11:27 Diarrhea Antihistamines - Ethanolamine AdvReac Nausea/Vom/ Verified 11/15/23 11:27 Diarrhea Antihistamines - AdvReac Nausea/Vom/ Verified 11/15/23 11:27 Ethylenediamine Diarrhea Antihistamines - Piperazine AdvReac Nausea/Vom/ Verified 11/15/23 11:27 Diarrhea Antihistamines - Piperidine AdvReac Nausea/Vom/ Verified 11/15/23 11:27 Diarrhea aspirin AdvReac I'M ON Verified 11/15/23 11:27 BLOOD THINNERS codeine AdvReac Nausea Verified 11/15/23 11:27 Corticosteroids AdvReac Upset Verified 11/15/23 11:27 (Glucocorticoids) Stomach morphine AdvReac Nausea Verified 11/15/23 11:27 [id number] Reductase AdvReac Nausea Verified 11/15/23 11:27 Inhibitor [Sqwfgha-Ijv-Pik Reductase Inhibitor] Family History Mother Cancer CAD (coronary artery disease) Brain tumor Grandfather CVA (cerebral vascular accident) Father CAD (coronary artery disease) Ruptured abdominal aortic aneurysm (AAA) Sister Brain aneurysm Surgical History Brain aneurysm Fracture of right lower leg H/O hemorrhoidectomy H/O: History of angioplasty of peripheral vessel History of angioplasty of peripheral vessel (07/11/19) History of section History of hemorrhoidectomy History of hysterectomy History of left breast biopsy History of left heart catheterization (01/25/15) History of left-sided carotid endarterectomy History of partial thyroidectomy (11/30/05) History of right-sided carotid endarterectomy S/P coil embolization of cerebral aneurysm S/P hysterectomy S/P insertion of iliac artery stent S/P thyroidectomy Stenosis of left subclavian artery Social History household members: none Smoking Status: Current every day smoker tobacco type: cigarettes alcohol intake: never caffeine: Yes Type: coffee and tea ROS ROS Narrative Admission Review of Systems: CONSTITUTIONAL: No weight loss, + low grade T, chills, weakness or fatigue. HEENT: + Lightheaded, dizziness. Eyes: No visual loss, blurred vision, double vision or yellow sclerae. Ears, Nose, Throat: No hearing loss, sneezing, congestion, runny nose or sore throat. SKIN: No rash or itching, lesions, wounds. CARDIOVASCULAR: + Lightheadedness, dizziness. No chest pain, chest pressure or chest discomfort, palpitations, edema, orthopnea, syncopal events. RESPIRATORY: + Cough, non-productive. No marked shortness of breath, wheezing, hemoptysis. GASTROINTESTINAL: + anorexia, nausea, vomiting, diarrhea, abdominal pain/cramping. No melena, BRBPR. GENITOURINARY: + Decreased UOP with decreased oral intake. No dysuria, frequency, urgency or retention. NEUROLOGICAL: + Lightheadedness, dizziness, does have underlying MS and uses walker, chronic debility/lower extremity weakness. No headache, syncope, paralysis, ataxia, numbness or tingling in the extremities, seizure. MUSCULOSKELETAL: + muscle, back pain, joint pain or stiffness. HEMATOLOGIC: No anemia, bleeding or bruising. LYMPHATICS: No enlarged nodes. No history of splenectomy. PSYCHIATRIC: No history of depression or anxiety. ENDOCRINOLOGIC: No reports of sweating. + cold or heat intolerance. No polyuria or polydipsia. ALLERGIES: + Hx of hives Vital Signs Vital Signs Vital Signs: 11/15/23 11:22 11/15/23 11:28 11/15/23 11:29 Temperature 97.8 F 97.8 F Temperature Source Oral Oral Pulse Rate 68 62 Respiratory Rate 12 14 Respiratory Effort Normal Non-Labored Blood Pressure 83/61 L 98/61 Blood Pressure Mean 68 73 Pulse Ox 98 98 Oxygen Delivery Method Room Air Room Air 11/15/23 12:29 11/15/23 13:28 11/15/23 14:00 Temperature 97.8 F Temperature Source Oral Pulse Rate 63 56 L 54 L Respiratory Rate 19 H 18 12 Respiratory Effort Blood Pressure 106/50 L 113/67 98/56 L Blood Pressure Mean 68 82 70 Pulse Ox 96 96 94 Oxygen Delivery Method Room Air Room Air Room Air Weight Weight: 128 lb 4.944 oz Body Mass Index (BMI) 21.3 Physical Exam Narrative Physical Examination: General: Awake, alert, oriented x 3 and cooperative, laying in the ED bed, fatigued and ill appearing. Skin: Normal color, normal turgor, no icterus, no cyanosis. HEENT: AT/NC, EOMI, PERRLA, dry MM, no carotid bruits or JVD noted. Lungs: Diminished, > bases, dry cough with examination with deep inspiratory effort attempts, currently no appreciated rales, ronchi or wheezing. Heart: Mildly bradycardic with regular rhythm; no gallop, rub audible. Abdomen: Soft, NTTP, ND, hyperactive BS, no HSM. Extremities: No cyanosis, clubbing, or edema. Neurological: Patient awake, alert, oriented as noted, cognitive function intact; pupils equally reactive to light and accommodation, cranial nerves grossly normal, moving all 4 extremities but does have chronic debility/weaknesswith underlying MS, no markedly severe noted contractures, strength moderately to severely globally decreased secondary to acute presentation compounded by underlying comorbidities. Psychiatric: Affect appears flat, fatigued, ill appearing, no acute evidence of depressive or anxiety feelings. Results Lab / Micro Data 11/15/23 11:30 11/15/23 11:30 Labs: Laboratory Results - last 24 hr 11/15/23 11:30: WBC 4.9, RBC 4.74, Hgb 13.7, Hct 40.9, MCV 86.3, MCH 28.9, MCHC 33.5, RDW Std Deviation 46.6 H, RDW Coeff of David 14.6, Plt Count 164, MPV 10.1, Immature Gran % (Auto) 0.600, Neut % (Auto) 70.4 H, Lymph % (Auto) 14.3 L, [place] % (Auto) 14.5 H, Eos % (Auto) 0.0, Baso % (Auto) 0.2, Absolute Neuts (auto) 3.4,Absolute Lymphs (auto) 0.70 L, Nucleated RBC % 0, Sodium 130 L, Potassium 3.9, Chloride 97 L, Carbon Dioxide 21.0, Anion Gap 12, BUN 64 H, Creatinine 2.51 H, Estim Creat Clear Calc 19.03, Est GFR (MDRD) Af Amer 24 L, Est GFR (MDRD) Non-Af20 L, BUN/Creatinine Ratio 25.5 H, Glucose 80, Calcium 8.1 L, Total Bilirubin 0.30, AST 34, ALT 27, Alkaline Phosphatase 104, Total Protein 6.9, Albumin 3.3, Globulin 3.6, Albumin/Globulin Ratio 0.9, Lipase 60 Micro: Microbiology 11/15/23 12:46 Mucosa - Nasopharyngeal SARS-CoV-2, Influenza & RSV (PCR) - Final Influenzae A Imagaing Radiology Impression Chest X-Ray 11/15/23 12:43 IMPRESSION: Minimal atelectasis and/or possible evolving pneumonia within the left lower lung. Electronically Signed: Niki Mojica MD at 13:03 EST , Assessment & Plan Assessment/Plan (1) Influenza A: (2) Acute kidney injury: PLAN: Plan The patient is a 68 y/o F w/ PMHx: Hx Cerebral aneurysm, Chronic pain syndrome, HTN, HLD, Hx TIA, Multiple Sclerosis, Nonobstructive CAD, Psoriatic arthritis, PAD, NS SVT, GERD, Hypothyroidism, Carotid disease, Tobacco use who presents to the [facility] ED on 11/15/23 with history of 4 to 5 days of initially nausea followed by bouts of emesis and loose stools although this has been decreasing with poor oral intake although she has still been attempting to have good water intake butit has not been at her baseline and she has had low blood pressures when she is checked them at home with recent issues of the last couple months with decreasing blood pressures prompting decreases in her medications with mild abdominal cramping the day prior but no pain nor any fevers or chills prompting eventual ED evaluation. #1. General Malaise, Cough, Fever, General Debility secondary to Influenza A Viral Syndrome with associated hypotension and GI losses with nausea/emesis/diarrhea: CXR in the ED w/ questionable evolving left lower lobe pneumonia with admission CBC w/ WBC 4.9 with no left shift. Influenza A positive. Will admit to MS telemetry, maintain on oxygen with wean as tolerated,PRN albuterol, continue hydration given CHRISTOPHER concurrently, given patient timelineof illness of at least 4 to 5 days she is not Tamiflu appropriate, HOB, IS parameters, maintain on fall and aspiration precautions, plan repeat chest x-rayin AM. PT/OT/case management consultation for discharge planning. #2. Acute kidney injury with Acute Hyponatremia/Hypochloremia of Hypovolemic nature on CKD stage III primarily per prior GFR trending: Secondary to acute illness #1. Admission BUN/Cr 64/2.51, prior baseline creatinine noted to be primarily 0.8- 1.0. Will hydrate, hold nephrotoxic medications and repeat chemistry in AM. If no improvement would plan FeNa and renal ultrasound assessment. #3. Chronic pain syndrome: Will very cautiously continue patient as needed painregimen (change to oxycodone 5 mg q 8h PRN and hold extended) in addition to gabapentin renally dosed to 300 mg BID and baclofen renally dosed to 2.5 mg q12 hours until renal fx improved to avoid withdrawal however given her significant acute kidney injury. As soon as function improved these will need to again be altered to avoid withdrawal. #4. Carotid disease: Status post right CEA, continue patient home Plavix regimen, holding hypertensive regimen as noted and noted statin intolerance/allergy. #5. PAD: Status post iliac artery stent previously, continue patient home Plavix regimen, holding hypertensive regimen as noted and noted statin intolerance/allergy. #6. Hx TIA: Will continue patient home Plavix regimen, holding hypertensive regimen as noted and noted statin intolerance/allergy. #7. Nonobstructive CAD: Will continue patient home Plavix regimen, holding hypertensive regimen as noted and noted statin intolerance/allergy. #8. Tobacco Abuse: Encouraged cessation, inpatient consultation per RT, NR if desired. #9. Multiple sclerosis: From current list not on aggressive regimen, only notedto be on gabapentin and also on baclofen, both of which as noted above will be temporarily renally dosed and will need to again be altered based on further renal functions. Encourage continued outpatient follow-up with neurology. PT/OT/case management consulted for discharge planning. #10. Psoriatic arthritis: Prior was on prednisone, not current taking. Also, asnoted on chronic pain regimen with renal changes as noted. #11. Hypertension: Given presentation with notable hypotension holding all regimen as well as noted acute kidney injury. #12. Hyperlipidemia: Noted statin allergy, defer to outpatient. #13. Hypothyroidism: History of previous goiter status post partial thyroidectomy, continue home synthroid regimen. #14. History cerebral aneurysm: Status post coil embolization. #15. DVT prophylaxis: Heparin. #16. CODE status: Patient HCPOA and living will are not in place but she notes her sons would be her decisions makers if she was unable. Discussed CODE status at length including difference between FULL code, DNR-CCA and DNR-CC status. Following discussions about the differences in these status, requested Full Codestatus. Advanced Care Planning Face to Face Time: 16 minutes. Charges/Coding Visit Charges Inpatient E&M: 49990 Init Hosp L3 Procedures Hospitalists Procedures: 26592 Advncd Care Plan 30 Min 11/15/23 1544 <Electronically signed by Sommer Resendiz MD> Cosigner Signature (if applicable): CC: Dr. Sommer Resendiz MD; Dr. Daron Benton MD~ Signed [facility] Work Phone: History and physical note Author Roman Mckeon [facility] December 02, 2023 11:53am Note Date/Time December 02, 2023 1 1:43am [facility] Medical Records Department [address] [place] [address] H&P Exam - Hospitalist 12/02/23 1140 MR#: [id number] Acct: [id number] Name: ANGÉLICA YO Rep #:[id number] : 1955 68 From: Roman Mckeon MD PCP: Dr. Daron Benton MD Status:ADM IN Location: [address] HPI - General General Date of Admission: 12/02/23 Date of Service: 12/02/23 Chief Complaint: Generalized weakness HPI Narrative ANGÉLICA YO, is a 68 F with past medical history is again for multiple sclerosis, recent hospitalization for acute influenza A infection who presented with generalized weakness. Per patient symptoms have been going on for couple of days. Patient however denied any subjective fever no chills. Presented to the emergency department initial workup including head CT came back unremarkableurinalysis however did demonstrate positive leukocyte esterase. Admitted to a monitored bed for further management [facility] Medical History Angina pectoris Bilateral carotid artery stenosis Chronic pain syndrome Coronary artery disease Essential (primary) hypertension Fatty liver GERD (gastroesophageal reflux disease) Goiter History of transient ischemic attack (TIA) HLD (hyperlipidemia) Hypothyroidism Influenza A Multiple sclerosis Nonobstructive atherosclerosis of coronary artery Nonsustained paroxysmal supraventricular tachycardia Osteoarthritis Osteoporosis Peripheral vascular occlusive disease Psoriasis Psoriatic arthritis Smoker Thrombocytopenia TIA (transient ischemic attack) Home Medications cholecalciferol (vitamin D3) 125 mcg (5,000 unit) tablet 5,000 unit PO DAILY supplement 12/16/13 [History Last Taken 12/01/23] gabapentin 800 mg tablet 800 mg PO TID MS 07/16/18 [History Last Taken 12/01/23] baclofen 20 mg tablet 20 mg PO Q8H MS 08/11/21 [History Last Taken 12/01/23] levothyroxine 50 mcg tablet 50 mcg PO DAILY thyroid 08/11/21 [History Last Taken 12/01/23] oxycodone 10 mg tablet 10 mg PO Q6H PRN pain 05/24/23 [History Last Taken 12/01/23] clopidogrel 75 mg tablet 75 mg PO DAILY dose increased, pt is OUT of med, pleasefill #90 TABLETS 06/01/23 [Rx Last Taken 11/18/23] lisinopril 5 mg tablet 5 mg PO DAILY blood pressure #30 tabs 11/02/23 [Rx Last Taken 12/01/23] dextromethorphan-guaifenesin ER 60 mg-1,200 mg tab,extend release,12hr (Mucinex DM) 1 tab PO Q12H cough/congest 7 days #14 tabs 11/16/23 [Rx Last Taken 12/01/23] apixaban 5 mg tablet (Eliquis) 5 mg PO BID 30 days #60 tabs 11/21/23 [Rx Last Taken 12/01/23] metoprolol tartrate 25 mg tablet 12.5 mg (1/2 x 25 mg) PO BID 30 days #30 tabs 11/21/23 [Rx Last Taken 12/01/23] Allergy/AdvReac Type Severity Reaction Status Date / Time colestipol [From Colestid] Allergy Mild unknown Verified 11/26/23 12:47 pregabalin [From Lyrica] Allergy Mild Hives Verified 11/26/23 12:47 amitriptyline Allergy Rash Verified 11/26/23 12:47 temazepam [From Restoril] AdvReac Mild Nausea/Vom/ Verified 11/26/23 12:47 Diarrhea Antihistamines - Alkylamine AdvReac Nausea/Vom/ Verified 11/26/23 12:47 Diarrhea Antihistamines - Ethanolamine AdvReac Nausea/Vom/ Verified 11/26/23 12:47 Diarrhea Antihistamines - AdvReac Nausea/Vom/ Verified 11/26/23 12:47 Ethylenediamine Diarrhea Antihistamines - Piperazine AdvReac Nausea/Vom/ Verified 11/26/23 12:47 Diarrhea Antihistamines - Piperidine AdvReac Nausea/Vom/ Verified 11/26/23 12:47 Diarrhea aspirin AdvReac I'M ON Verified 11/26/23 12:47 BLOOD THINNERS codeine AdvReac Nausea Verified 11/26/23 12:47 Corticosteroids AdvReac Upset Verified 11/26/23 12:47 (Glucocorticoids) Stomach morphine AdvReac Nausea Verified 11/26/23 12:47 Mjajcid-BKK-PpS Reductase AdvReac Nausea Verified 11/26/23 12:47 Inhibitor [Mvdrewd-Pci-Kwm Reductase Inhibitor] Family History Mother Cancer CAD (coronary artery disease) Brain tumor Grandfather CVA (cerebral vascular accident) Father CAD (coronary artery disease) Ruptured abdominal aortic aneurysm (AAA) Sister Brain aneurysm Surgical History Brain aneurysm Fracture of right lower leg H/O hemorrhoidectomy H/O: History of angioplasty of peripheral vessel History of angioplasty of peripheral vessel (07/11/19) History of appendectomy History of section History of cholecystectomy History of hemorrhoidectomy History of hysterectomy History of left breast biopsy History of left heart catheterization (01/25/15) History of left-sided carotid endarterectomy History of partial thyroidectomy (11/30/05) History of right-sided carotid endarterectomy S/P coil embolization of cerebral aneurysm S/P hysterectomy S/P insertion of iliac artery stent S/P thyroidectomy Stenosis of left subclavian artery Social History household members: none Smoking Status: Current every day smoker tobacco type: cigarettes alcohol intake: never caffeine: Yes Type: coffee and tea ROS ROS Narrative GENERAL: denies fever, chills, night sweats, weight loss, anorexia HEENT: denies headache, sinus congestion, or drainage, dysphagia RESPIRATORY: denies cough, sputum production, shortness of breath, dyspnea on exertion CARDIAC: denies chest pain, palpitations, orthopnea, PND GASTROINTESTINAL: denies abdominal pain, nausea, vomiting, melena, GENITOURINARY: denies dysuria, urgency, frequency, heamaturia EXTREMITY: denies swelling MUSCULOSKELETAL: denies current joint pain or tenderness NEUROLOGIC: denies focal numbness, weakness, tingling HEMATOLOGIC: denies easy bruising and/or hemorrhage INTEGUMENT: denies rashes PSYCHIATRIC: denies suicidal or homicidal ideation Vital Signs Vital Signs Vital Signs: 12/02/23 06:30 12/02/23 06:33 12/02/23 06:40 Temperature 97.4 F L 97.6 F L Temperature Source Oral Oral Pulse Rate 63 66 Respiratory Rate 22 H 16 Respiratory Effort Normal Non-Labored Respiratory Pattern Normal Blood Pressure 201/91 H Blood Pressure Mean 127 Pulse Ox 97 93 Oxygen Delivery Method Room Air Room Air 12/02/23 08:13 12/02/23 08:53 12/02/23 10:30 Temperature Temperature Source Pulse Rate 72 53 L 51 L Respiratory Rate 21 H 22 H 19 H Respiratory Effort Respiratory Pattern Blood Pressure 156/74 H 207/82 H 183/93 H Blood Pressure Mean 101 123 123 Pulse Ox 92 97 96 Oxygen Delivery Method Room Air Room Air Room Air Weight Weight: 56 kg Body Mass Index (BMI) 20.5 Physical Exam Narrative GENERAL: cooperative HEENT: Atraumatic; normocephalic EYES; Anicteric, Normal Conjunctiva NECK; supple, normal thyroid, RESPIRATORY: Diminished to auscultation CARDIOVASCULAR: Regular S1 S2, GI: soft, normoactive bowel sounds, : No Renal angle tenderness; EXTREMITIES: No edema, no clubbing, MUSCULOSKELETAL: no muscle wasting NEURO: Awake; no lateralizing signs. SKIN: No Rash PSYCH; Flat affect Results Lab / Micro Data 12/02/23 06:40 12/02/23 06:40 Labs: Laboratory Results - last 24 hr 12/02/23 06:40: WBC 6.6, RBC 4.21, Hgb 12.5, Hct 37.5, MCV 89.1, MCH 29.7, MCHC 33.3, RDW Std Deviation 50.4 H, RDW Coeff of David 15.5 H, Plt Count 281, MPV 9.1,Immature Gran % (Auto) 0.800, Neut % (Auto) 56.3, Lymph % (Auto) 28.5, [place] % (Auto) 12.7 H, Eos % (Auto) 0.9, Baso % (Auto) 0.8, Absolute Neuts (auto) 3.8, Absolute Lymphs (auto) 1.89, Nucleated RBC % 0, Sodium 140, Potassium 3.7, Chloride 107, Carbon Dioxide 25.0, Anion Gap 8, BUN 16, Creatinine 1.13 H, EstimCreat Clear Calc 41.54, Est GFR (MDRD) Af Amer 61, Est GFR (MDRD) Non-Af 51 L, BUN/Creatinine Ratio 14.2, Glucose 109 H, Calcium 8.8, Total Creatine Kinase 26 12/02/23 10:30: Urine Color Yellow, Urine Clarity Clear, Urine pH 6.5, Ur Specific [place] 1.015, Urine Protein 15 H, Urine Glucose (UA) Normal, Urine Ketones Negative, Urine Occult Blood Negative, Urine Nitrite Negative, Urine Bilirubin Negative, Urine Urobilinogen Normal, Ur Leukocyte Esterase 25 H, UrineRBC 0 SEEN, Urine WBC 0 SEEN, Ur Squamous Epith Cells 0 SEEN, Urine Bacteria 0 SEEN, Urine Mucus 0 SEEN Micro: Microbiology 12/02/23 07:37 Mucosa - Nose SARS-CoV-2, Influenza & RSV (PCR) - Final Rhythm Strip Rhythm Strip: Sinus Rhythm Rate: 55 Ectopy: None Imagaing Radiology Impression Brain CT 12/02/23 07:28 IMPRESSION: No acute intracranial abnormality. No interval change. Electronically Signed: Chago Mcintyre MD at 8:45 EST , Chest X-Ray 12/02/23 07:28 IMPRESSION: Minimal infiltrate or atelectasis of the right lower lobe. Electronically Signed: Chago Mcintyre MD at 9:06 EST , Assessment & Plan Assessment/Plan (1) Weakness: PLAN: Plan Patient is a 68-year-old lady admitted with progressive generalized weakness 1. Progressive generalized weakness ? Differential diagnoses include patient possible cystitis versus MS flareup. Plan is to treat the underlying suspected cystitis and if no improvement patientto be initiated on steroids consult subsequently placed to teleneurology 2. Acute cystitis ? Patient had positive leukocyte esterase started on ceftriaxone cultures sent 3. Recent -diagnosis of acute influenza A infection chest x-ray obtained on admission demonstrated some infiltrate patient has been started on ceftriaxone 4. Multiple sclerosis ? Patient is on baclofen for symptom management 5. Paroxysmal A-fib ? Rate controlled on systemic anticoagulation with apixaban continue 6. Essential hypertension ? Patient blood pressure control not optimal due to continuing home meds added hydralazine as needed. Blood pressure greater than 160 7. Tobacco dependence - Counseled on cessation, offered nicotine patch for tobacco cravings 8. Hypothyroidism - Patient is on levothyroxine home dose continued 9. Peripheral arterial disease ? With history of iliac stent As well as bilateral carotid endarterectomy. Patient is on antiplatelet therapy 10. Psoriatic arthritis ? Patient not on any DMARDs, will continue with pain meds as needed DVT prophylaxis ? Patient is on apixaban Time spent in the patient's overall evaluation,decision-making process, review of diagnostic data, adjustment of management, discussion with other providers, nursing nursing and ancillary staff involved in patient's care documentation, 75Minutes Advance planning; did discuss with the patient and family regarding advanced directives as well as CODE STATUS. Did explain the various scenarios involved (FULL CODE, DNR CCA, DNR CCA with no intubation, and DNR CC and what each meant) patient elected to to remain full code with CPR and intubation if warranted. Order was placed. Time spent on discussion 18 minutes. Charges/Coding Visit Charges Inpatient E&M: 62643 Init Hosp L3 Procedures Hospitalists Procedures: 30989 Advncd Care Plan 30 Min 12/02/23 1153 <Electronically signed by Roman Mckeon MD> Cosigner Signature (if applicable): CC: Dr. Roman Mckeon MD; Dr. Daron Benton MD~ Signed [facility] Work Phone: [facility] Work Phone: [facility] instructionsW[facility] Work Phone: Hospital Discharge instructions Additional Instructions Please follow-up with your primary care doctor. If your pain gets worse you do not feel you can effectively take care of yourself at home please return to the emergency room. [facility] Work Phone: Hospital Discharge instructions Additional Instructions Please reach out to your neurologist regarding potential steroid infusions as your history and exam today indicate you are having an MS exacerbation. Continue all of your medications as previously directed but add the steroid and the extended release oxycodone for improved symptom control. Return to the ER should you have any further concerns or worsening of symptoms [facility] Work Phone: Hospital Discharge instructions Additional Instructions Continue following up outpatient. You need to follow-up with your PCP, make them aware that you no longer taking her Eliquis. Return for any worsening symptoms. Chest x-ray was clear today.[facility] Work Phone: Hospital Discharge instructions Additional Instructions Labs and CAT scan today showed no significant changes in the past. No signs of acute stroke. Call and follow-up with your primary care physician if this is not improving you and he can discuss further imaging of your neck to see if you may have a pinched nerve.[facility] Work Phone: Hospital Discharge instructions Additional Instructions In 2019, Dr. 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 Make an appointment to see him as soon as possible to have this reevaluated.[facility] Work Phone: Hospital Discharge instructions Additional Instructions Ice to your scalp. Tylenol for pain. If you are having a severe severe headache or intractable vomiting you need to return. Currently there is no signs of any bleeding in your brain your CAT scan was okay. You may want to discuss with your primary care physician if you absolutely need to be on the blood thinner Eliquis. Anytime you hit your head you are at risk of getting internal bleeding.[facility] Work Phone: Hospital Discharge instructions Additional Instructions Your constipation is most likely related to your oxycodone use for pain control. Please take the Colace twice a day for the next week to help stimulate bowel movements. Begin taking the Movantik as directed as well as this should help reduce the constipation/gut slowing from the oxycodone use. There are no signs of bowel blockage or perforation or infectious process noted on today's exam. Return to the ER should you have any further concerns or worsening of symptoms. [facility] Work Phone: Progress note Author Kevin Friend [facility] Note Date/Time April 22, 2025 5:49p m [facility] Medical Records Department [address] [place] [address] Progress Note 04/22/25 1747 MR#: [id number] Acct: [id number] Name: ANGÉLICA YO Rep #:[id number] : 1955 69 From: Kevin Friend DO PCP: Dr. Daron Benton MD Status:ADM IN Location: NV3 [id number] Progress Note Patient is doing well today. She has not had any signs of GI bleeding overnight. She is status post EGD and colonoscopy. Physical Exam Narrative GENERAL: cooperative HEENT: Atraumatic; normocephalic EYES; Anicteric, pallor of the conjunctiva NECK; supple, normal thyroid, RESPIRATORY: Diminished to auscultation CARDIOVASCULAR: Regular S1 S2, GI: soft, normoactive bowel sounds, : No Renal angle tenderness; EXTREMITIES: No edema, no clubbing, MUSCULOSKELETAL: no muscle wasting NEURO: Awake; no lateralizing signs. SKIN: No Rash PSYCH; Flat affect Assessment & Plan Assessment/Plan (1) Symptomatic anemia: PLAN: Plan Patient is a 69-year-old lady presented with fatigue found to be anemic with hemoglobin of 7.3. She is on anticoagulation with Eliquis for atrial fibrillation. Hemoglobin is up after blood transfusion. She was explained alternatives, risk and benefits include not withstanding bleeding, infection, sepsis, perforation, need for more surgery . She will have an ASA of 3. 04/21/2025.-Patient underwent an upper endoscopy yesterday and no etiology of GI bleed was seen. She was supposed to get prep for a colonoscopy last night. However she can not tolerate NG tube placement and could not tolerate the prep. We will place NG tube and order endoscopy today. And then she can take the tube after her prep is complete. 04/22/2025-patient will have colonoscopy today. Patient was explained alternatives, risk and benefits include not withstanding bleeding, pressure, sepsis, perforation, need for more transient . She will have an ASA of 3. Findings: The perianal and digital rectal examinations were normal. A 10 mm polyp was found in the splenic flexure. The polyp was sessile. The polyp was removed with a hot snare. Resection and retrieval were complete. Verification of patient identification for the specimen was done. Estimated blood loss was minimal. Multiple small-mouthed diverticula were found in the recto-sigmoid colon, sigmoid colon, descending colon and ascending colon. A few five mm ulcers were found in the rectum. No bleeding was present. Stigmata of recent bleeding were present. Biopsies were taken with a cold forceps for histology. Verification of patient identification for the specimen was done. Estimated blood loss was minimal. Impression: - One 10 mm polyp at the splenic flexure, removed with a hot snare. Resected and retrieved. - Diverticulosis in the recto-sigmoid colon, in the sigmoid colon, in the descending colon and in the ascending colon. - A few ulcers in the rectum. Biopsied. Recommendation: - Discharge patient to home. - Resume previous diet. - Continue present medications. - Await pathology results. - Repeat colonoscopy in 3 years for surveillance. Differential diagnosis does include ulcerative proctitis. She will need to follow-up in the clinic for further workup Visit Charges Inpatient E&M: 43128 Subs Hosp L3 04/22/25 1749 <Electronically signed by Kevin Gonzalez DO> Kevin Gonzalez DO Cosign Signature (if applicable): CC: ~ Signed [facility] Work Phone: Reason for referral (narrative)* Consultation (Routine) - Pending Review Specialty Diagnoses / Procedures Referred By Hillary christie Referred To Contact Ophthalmology Diagnoses Vision disturbance Procedures [facility] 60 MINUTES Lizz Lynn APRN - CNP [address] [place] [address] Cecilio Gibbs MD [address] [place] [address] Referral ID Status Reason Start Date Expiration Date Visits Requested Visits Authorized [id number] Pending Review Specialty Services Required 12/14/2023 12/13/2024 1 1 * Therapy (Routine) - Pending Review Specialty Diagnoses / Procedures Referred By Hillary t Referred To Contact Physical Therapy Diagnoses Dizziness Imbalance Procedures ME OFFICE/OUTPATIENT NEW HIGH MDM 60 MINUTES Lizz Lynn APRN - CNP [address] [place] [address] Referral ID Status Reason Start Date Expiration Date Visits Requested Visits Authorized [id number] Pending Review Eval and Treat 12/14/2023 06/11/2024 99 99 Scheduling Instructions Twice weekly x 4 weeks for dizziness and imbalance [facility]narrative)No reason for referral information availableWUniversity Hospitals Health System Work Phone: Summary Purpose Family History Relationship Condition Age at Onset Recorded Date/T edgar mother Malignant neoplasm Unknown Coronary artery disease Unknown Intracranial tumor Unknown grandfather Cerebrovascular accident (CVA) Unknown father Coronary artery disease Unknown Ruptured abdominal aortic aneurysm (AAA) Unknown sister Cerebral aneurysm Unknown Advance Directives Advance Directive Response Recorded Date/ Time Advance Directives No January 18 8:11am Living Will No February 17, 2022 9:49pm Power of Turf Manager No February 17 2 9:49pm Advance Directive Response Recorded Date/ Time Advance Directives No January 18 8:11am Living Will No February 18, 2022 4:14am Power of Turf Manager No February 18 2 4:14am Advance Directive Response Recorded Date/ Time Advance Directives No January 18 8:11am Living Will No February 20, 2022 4:54pm Power of Turf Manager No February 20 2 4:54pm Advance Directive Response Recorded Date/ Time Advance Directives No January 18 7:11am Living Will No February 20, 2022 3:54pm Power of Turf Manager No February 20 2 3:54pm Advance Directive Response Recorded Date/ Time Advance Directives No January 18 7:11am Living Will No November 24 3 11:31pm Power of Turf Manager No November 24 023 11:31pm Advance Directive Response Recorded Date/ Time Advance Directives No January 18 8:11am Living Will No November 25 12:31am Power of Turf Manager No November 25, 2 023 12:31am Advance Directive Response Recorded Date/ Time Advance Directives No January 18 8:11am Living Will No March 16, 2023 12:46pm Power of Turf Manager No March 16 12:46pm Advance Directive Response Recorded Date/ Time Advance Directives No January 18 8:11am Living Will No March 31, 2023 1 2:40pm Power of Turf Manager No March 31, 2023 12:40pm Advance Directive Response Recorded Date/ Time Advance Directives No January 18 8:11am Living Will No April 08, 2023 9 :22am Power of Turf Manager No April 08, 2023 9:22am Advance Directive Response Recorded Date/ Time Advance Directives No January 18 7:11am Living Will No October 05 023 12:50am Power of Turf Manager No October 05, 2023 12:50am Advance Directive Response Recorded Date/ Time Advance Directives No January 18 7:11am Living Will No November 15, 2 023 11:28am Power of Turf Manager No November 15, 2023 11:28am Advance Directive Response Recorded Date/ Time Advance Directives No January 18 7:11am Living Will No November 15 2 023 4:24pm Power of Turf Manager No November 15, 2023 4:24pm Advance Directive Response Recorded Date/ Time Advance Directives No January 18 7:11am Living Will No November 18 2 023 11:47am Power of Turf Manager No November 18, 2023 11:47am Advance Directive Response Recorded Date/ Time Advance Directives No January 18 7:11am Living Will No November 18 2 023 3:44pm Power of Turf Manager No November 18, 2023 3:44pm Advance Directive Response Recorded Date/ Time Advance Directives No January 18 7:11am Living Will No November 26 1:53pm Power of Turf Manager No November 26 2 024 1:53pm Advance Directive Response Recorded Date/ Time Advance Directives No January 18 7:11am Living Will No November 27 9:06am Power of Turf Manager No November 27 024 9:06am Advance Directive Response Recorded Date/ Time Advance Directives No January 18 7:11am Living Will No December 02 6:38am Power of Turf Manager No December 02, 2023 6:38am Advance Directive Response Recorded Date/ Time Advance Directives No January 18 7:11am Living Will No December 02 12:37pm Power of Turf Manager No December 02, 2023 12:37pm Advance Directive Response Recorded Date/ Time Advance Directives No January 18 7:11am Living Will No January 18, 2024 10:25am Power of Turf Manager No January 17 10:25am Advance Directive Response Recorded Date/ Time Advance Directives No January 18 8:11am Living Will No February 19, 2024 10:57am Power of Turf Manager No February 18 10:57am Advance Directive Response Recorded Date/ Time Advance Directives No January 18 8:11am Living Will No February 19, 2024 5:33pm Power of Turf Manager No February 18 5:33pm Advance Directive Response Recorded Date/ Time Living Will No December 17 11:30am Do you have a Healthcare Power of Turf Manager? No December 17, 2024 11:30am Do you have a Healthcare Power of Turf Manager? No April 02, 2025 7:26pm Living Will No December 09 3:59pm Do you have a Healthcare Power of Turf Manager? No December 09, 2024 3:59pm Living Will No January 11 025 2:51am Do you have a Healthcare Power of Turf Manager? No January 11, 2025 2:51am Advance Directives No January 18 8:11am Advance Directive Response Recorded Date/ Time Do you have a Healthcare Power of Turf Manager? No April 02, 2025 7:26pm Do you have a Healthcare Power of Turf Manager? No April 11, 2025 1:19pm Living Will No January 11 2 025 2:51am Do you have a Healthcare Power of Turf Manager? No January 11, 2025 2:51am Do you have a Healthcare Power of Turf Manager? No April 17, 2025 10:20pm Advance Directives No January 18 8:11am Advance Directive Response Recorded Date/ Time Do you have a Healthcare Power of Turf Manager? No April 02, 2025 7:26pm Do you have a Healthcare Power of Turf Manager? No April 11, 2025 1:19pm Do you have a Healthcare Power of Turf Manager? No April 18, 2025 6:43pm Living Will No January 11 025 2:51am Do you have a Healthcare Power of Turf Manager? No January 11, 2025 2:51am Do you have a Healthcare Power of Turf Manager? No April 17, 2025 10:20pm Advance Directives No January 18 8:11am Advance Directive Response Recorded Date/ Time Do you have a Healthcare Power of Turf Manager? No April 02, 2025 7:26pm Do you have a Healthcare Power of Turf Manager? No April 11, 2025 1:19pm Do you have a Healthcare Power of Turf Manager? No April 18, 2025 9:53pm Living Will No January 11 025 2:51am Do you have a Healthcare Power of Turf Manager? No January 11, 2025 2:51am Do you have a Healthcare Power of Turf Manager? No April 17, 2025 10:20pm Advance Directives No January 18 8:11am Advance Directive Response Recorded Date/ Time Do you have a Healthcare Power of Turf Manager? No April 02, 2025 7:26pm Do you have a Healthcare Power of Turf Manager? No April 11, 2025 1:19pm Do you have a Healthcare Power of Turf Manager? No April 18, 2025 9:53pm Do you have a Healthcare Power of Turf Manager? No April 17, 2025 10:20pm Advance Directives No January 18 8:11am Chief Complaint and Reason for Visit Chief Complaint LEFT KNEE STRICTURE OF ARTERIES STRUCTURE OF ARTERY LEFT LEG 6 M FU LOWER EXTREMITY EYE Reason for Visit Effusion of left kne e joint Left knee DJD Psoriatic arthritis Chronic pain Peripheral vascular occlusive disease Bilateral carotid artery stenosis Essential (primary) hypertension Nonobstructive atherosclerosis of coronary artery Peripheral vascular occlusive disease Chief Complaint LEFT KNEE STRICTURE OF ARTERIES STRUCTURE OF ARTERY LEFT LEG 6 M FU LOWER EXTREMITY EYE CP Reason for Visit Effusion of left kne e joint Left knee DJD Psoriatic arthritis Chronic pain Peripheral vascular occlusive disease Bilateral carotid artery stenosis Essential (primary) hypertension Nonobstructive atherosclerosis of coronary artery Peripheral vascular occlusive disease Chief Complaint STRUCTURE OF ARTERY LEFT LEG 6 M FU LOWER EXTREMITY EYE CP N/V 4 M FU MS Reason for Visit Peripheral vascular occlusive disease Bilateral carotid artery stenosis Essential (primary) hypertension Nonobstructive atherosclerosis of coronary artery Peripheral vascular occlusive disease Bilateral carotid artery stenosis Essential (primary) hypertension Nonobstructive atherosclerosis of coronary artery Peripheral vascular occlusive disease Chief Complaint MS 2-3 MO F/U STRICTURE OF ARTERY Reason for Visit Cardiac murmur Bilateral carotid artery stenosis Essential (primary) hypertension Nonobstructive atherosclerosis of coronary artery Peripheral vascular occlusive disease Chief Complaint STRICTURE OF ARTERY CAROTID ARTERY STENOSIS, TOBACCO ABUSE Chief Complaint STRICTURE OF ARTERY CAROTID ARTERY STENOSIS, TOBACCO ABUSE LEFT KNEE 6 M F/UP MURMUR BLOOD CLOT Reason for Visit Effusion of left kne e joint Left knee DJD Psoriatic arthritis Cardiac murmur [place] (dyspnea on exertion) Bilateral carotid artery stenosis Essential (primary) hypertension Nonobstructive atherosclerosis of coronary artery Peripheral vascular occlusive disease Chief Complaint STRICTURE OF ARTERY CAROTID ARTERY STENOSIS, TOBACCO ABUSE LEFT KNEE 6 M F/UP MURMUR BLOOD CLOT LEFT KNEE Room 1 Reason for Visit Effusion of left kne e joint Left knee DJD Psoriatic arthritis Cardiac murmur TOL[place]O (dyspnea on exertion) Bilateral carotid artery stenosis Essential (primary) hypertension Nonobstructive atherosclerosis of coronary artery Peripheral vascular occlusive disease Left knee DJD Psoriatic arthritis Chief Complaint LEFT KNEE 6 M F/UP MURMUR BLOOD CLOT LEFT KNEE Room 1 left knee LEFT KNEE LEFT KNEE LEFT KNEE POST ELDON Reason for Visit Effusion of left kne e joint Left knee DJD Psoriatic arthritis Cardiac murmur TOL[place]O (dyspnea on exertion) Bilateral carotid artery stenosis Essential (primary) hypertension Nonobstructive atherosclerosis of coronary artery Peripheral vascular occlusive disease Left knee DJD Psoriatic arthritis 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 Effusion of left knee joint Left knee DJD Psoriatic arthritis Chief Complaint MURMUR BLOOD CLOT LEFT KNEE Room 1 left knee LEFT KNEE LEFT KNEE LEFT KNEE [place] BACK PAIN AND LEFT 1ST TOE Reason for Visit Left knee DJD Psoriatic arthritis 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 Effusion of left knee joint Left knee DJD Psoriatic arthritis Chief Complaint LEFT KNEE Room 1 left knee LEFT KNEE LEFT KNEE LEFT KNEE [place] BACK PAIN AND LEFT 1ST TOE L lateral/side back pain, T8-9 level Reason for Visit Left knee DJD Psoriatic arthritis 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 Effusion of left knee joint Left knee DJD Psoriatic arthritis Chief Complaint LEFT KNEE Room 1 left knee LEFT KNEE LEFT KNEE LEFT KNEE [place] BACK PAIN AND LEFT 1ST TOE L lateral/side back pain, T8-9 level URINARY SYMPTOMS Reason for Visit Left knee DJD Psoriatic arthritis 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 Effusion of left knee joint Left knee DJD Psoriatic arthritis Chief Complaint LEFT KNEE LEFT KNEE LEFT KNEE [place] BACK PAIN AND LEFT 1ST TOE L lateral/side back pain, T8-9 level URINARY SYMPTOMS CERVICAL SPINE BACK PAIN, FACE NUMBNESS THORACIC BACK PAIN Reason for Visit Left knee DJD Left knee DJD Effusion of left knee joint Left knee DJD Psoriatic arthritis Intercostal neuralgia Thoracic back pain Chief Complaint LEFT KNEE [place] BACK PAIN AND LEFT 1ST TOE L lateral/side back pain, T8-9 level URINARY SYMPTOMS CERVICAL SPINE BACK PAIN, FACE NUMBNESS THORACIC BACK PAIN lumbar spine Reason for Visit Effusion of left kne e joint Left knee DJD Psoriatic arthritis Intercostal neuralgia Thoracic back pain Psoriatic arthritis Thoracic back pain Multiple sclerosis Chief Complaint BACK PAIN, FACE NUMB NESS THORACIC BACK PAIN lumbar spine 1 Y FU PAD Reason for Visit Psoriatic arthritis Thoracic back pain Multiple sclerosis Bilateral carotid artery stenosis Essential (primary) hypertension Nonobstructive atherosclerosis of coronary artery Peripheral vascular occlusive disease Chief Complaint 1 Y FU PAD PAD,AORTOILIAC OCCLUSIVE DISEASE, CAROTID STENOSIS BP CHECK PER VASCULAR 180/90 BP Reason for Visit Bilateral carotid ar klever stenosis Essential (primary) hypertension Nonobstructive atherosclerosis of coronary artery Peripheral vascular occlusive disease Chief Complaint PAD PAD,AORTOILIAC OCCLUSIVE DISEASE, CAROTID STENOSIS BP CHECK PER VASCULAR 180/90 BP HTN Chief Complaint PAD PAD,AORTOILIAC OCCLUSIVE DISEASE, CAROTID STENOSIS BP CHECK PER VASCULAR 180/90 BP HTN LEFT KNEE Reason for Visit Knee joint effusion Chief Complaint PAD PAD,AORTOILIAC OCCLUSIVE DISEASE, CAROTID STENOSIS BP CHECK PER VASCULAR 180/90 BP HTN LEFT KNEE BP CHECK / MED CHECK-IN INFLUENZA A, CHRISTOPHER Reason for Visit Knee joint effusion Bilateral carotid artery stenosis Essential (primary) hypertension Nonobstructive atherosclerosis of coronary artery Peripheral vascular occlusive disease Acute hyponatremia Acute kidney injury Dehydration Influenza A Chief Complaint PAD PAD,AORTOILIAC OCCLUSIVE DISEASE, CAROTID STENOSIS BP CHECK PER VASCULAR 180/90 BP HTN LEFT KNEE BP CHECK / MED CHECK-IN INFLUENZA A, CHRISTOPHER INFLUENZA A, CHRISTOPHER Reason for Visit Knee joint effusion Bilateral carotid artery stenosis Essential (primary) hypertension Nonobstructive atherosclerosis of coronary artery Peripheral vascular occlusive disease Acute hyponatremia Acute kidney injury Dehydration Influenza A Chief Complaint PAD PAD,AORTOILIAC OCCLUSIVE DISEASE, CAROTID STENOSIS BP CHECK PER VASCULAR 180/90 BP HTN LEFT KNEE BP CHECK / MED CHECK-IN INFLUENZA A, CHRISTOPHER INFLUENZA A, CHRISTOPHER PAF NEW ONSET, ? GI BLEED, RECENT INFLUENZA A Reason for Visit Knee joint effusion Bilateral carotid artery stenosis Essential (primary) hypertension Nonobstructive atherosclerosis of coronary artery Peripheral vascular occlusive disease Acute hyponatremia Acute kidney injury Dehydration Influenza A Atrial fibrillation Chest pressure Elevated troponin Influenza A New onset atrial fibrillation Chief Complaint PAD PAD,AORTOILIAC OCCLUSIVE DISEASE, CAROTID STENOSIS BP CHECK PER VASCULAR 180/90 BP HTN LEFT KNEE BP CHECK / MED CHECK-IN INFLUENZA A, CHRISTOPHER INFLUENZA A, CHRISTOPHER PAF NEW ONSET, ? GI BLEED, RECENT INFLUENZA A PAF NEW ONSET, ? GI BLEED, RECENT INFLUENZA A PAF NEW ONSET, ? GI BLEED, RECENT INFLUENZA A PAF NEW ONSET, ? GI BLEED, RECENT INFLUENZA A Reason for Visit Knee joint effusion Bilateral carotid artery stenosis Essential (primary) hypertension Nonobstructive atherosclerosis of coronary artery Peripheral vascular occlusive disease Acute hyponatremia Acute kidney injury Dehydration Influenza A Atrial fibrillation Chest pressure Elevated troponin Influenza A New onset atrial fibrillation Chief Complaint PAD,AORTOILIAC OCCLU SIVE DISEASE, CAROTID STENOSIS BP CHECK PER VASCULAR 180/90 BP HTN LEFT KNEE BP CHECK / MED CHECK-IN INFLUENZA A, CHRISTOPHER INFLUENZA A, CHRISTOPHER PAF NEW ONSET, ? GI BLEED, RECENT INFLUENZA A PAF NEW ONSET, ? GI BLEED, RECENT INFLUENZA A PAF NEW ONSET, ? GI BLEED, RECENT INFLUENZA A PAF NEW ONSET, ? GI BLEED, RECENT INFLUENZA A sob Reason for Visit Knee joint effusion Bilateral carotid artery stenosis Essential (primary) hypertension Nonobstructive atherosclerosis of coronary artery Peripheral vascular occlusive disease Acute kidney injury Acute hyponatremia Dehydration Atrial fibrillation Chest pressure Elevated troponin New onset atrial fibrillation Chief Complaint PAD,AORTOILIAC OCCLU SIVE DISEASE, CAROTID STENOSIS BP CHECK PER VASCULAR 180/90 BP HTN LEFT KNEE BP CHECK / MED CHECK-IN INFLUENZA A, CHRISTOPHER INFLUENZA A, CHRISTOPHER PAF NEW ONSET, ? GI BLEED, RECENT INFLUENZA A PAF NEW ONSET, ? GI BLEED, RECENT INFLUENZA A PAF NEW ONSET, ? GI BLEED, RECENT INFLUENZA A PAF NEW ONSET, ? GI BLEED, RECENT INFLUENZA A sob Right sided numbness Reason for Visit Knee joint effusion Bilateral carotid artery stenosis Essential (primary) hypertension Nonobstructive atherosclerosis of coronary artery Peripheral vascular occlusive disease Acute kidney injury Acute hyponatremia Dehydration Atrial fibrillation Chest pressure Elevated troponin New onset atrial fibrillation Chief Complaint PAD,AORTOILIAC OCCLU SIVE DISEASE, CAROTID STENOSIS BP CHECK PER VASCULAR 180/90 BP HTN LEFT KNEE BP CHECK / MED CHECK-IN INFLUENZA A, CHRISTOPHER INFLUENZA A, CHRISTOPHER PAF NEW ONSET, ? GI BLEED, RECENT INFLUENZA A PAF NEW ONSET, ? GI BLEED, RECENT INFLUENZA A PAF NEW ONSET, ? GI BLEED, RECENT INFLUENZA A PAF NEW ONSET, ? GI BLEED, RECENT INFLUENZA A sob Right sided numbness WEAKNESS Weakness Reason for Visit Knee joint effusion Bilateral carotid artery stenosis Essential (primary) hypertension Nonobstructive atherosclerosis of coronary artery Peripheral vascular occlusive disease Acute kidney injury Acute hyponatremia Dehydration Atrial fibrillation Chest pressure Elevated troponin New onset atrial fibrillation Weakness Chief Complaint PAD,AORTOILIAC OCCLU SIVE DISEASE, CAROTID STENOSIS BP CHECK PER VASCULAR 180/90 BP HTN LEFT KNEE BP CHECK / MED CHECK-IN INFLUENZA A, CHRISTOPHER INFLUENZA A, CHRISTOPHER PAF NEW ONSET, ? GI BLEED, RECENT INFLUENZA A PAF NEW ONSET, ? GI BLEED, RECENT INFLUENZA A PAF NEW ONSET, ? GI BLEED, RECENT INFLUENZA A PAF NEW ONSET, ? GI BLEED, RECENT INFLUENZA A sob Right sided numbness WEAKNESS Weakness Weakness Weakness Weakness Weakness Weakness Weakness Weakness Reason for Visit Knee joint effusion Bilateral carotid artery stenosis Essential (primary) hypertension Nonobstructive atherosclerosis of coronary artery Peripheral vascular occlusive disease Acute kidney injury Acute hyponatremia Dehydration Atrial fibrillation Chest pressure Elevated troponin New onset atrial fibrillation Dizziness Weakness Multiple sclerosis Chief Complaint HTN LEFT KNEE BP CHECK / MED CHECK-IN INFLUENZA A, CHRISTOPHER INFLUENZA A, CHRISTOPHER PAF NEW ONSET, ? GI BLEED, RECENT INFLUENZA A PAF NEW ONSET, ? GI BLEED, RECENT INFLUENZA A PAF NEW ONSET, ? GI BLEED, RECENT INFLUENZA A PAF NEW ONSET, ? GI BLEED, RECENT INFLUENZA A sob Right sided numbness WEAKNESS Weakness Weakness Weakness Weakness Weakness Weakness Weakness Weakness S/P [facility] 11/21/23 DIZZINESS,IMBALANCE/RX HERE fall Reason for Visit Knee joint effusion Bilateral carotid artery stenosis Essential (primary) hypertension Nonobstructive atherosclerosis of coronary artery Peripheral vascular occlusive disease Acute kidney injury Acute hyponatremia Dehydration Atrial fibrillation Chest pressure Elevated troponin New onset atrial fibrillation Dizziness Weakness New onset atrial fibrillation Bilateral carotid artery stenosis Essential (primary) hypertension Peripheral vascular occlusive disease Chief Complaint HTN LEFT KNEE BP CHECK / MED CHECK-IN INFLUENZA A, CHRISTOPHER INFLUENZA A, CHRISTOPHER PAF NEW ONSET, ? GI BLEED, RECENT INFLUENZA A PAF NEW ONSET, ? GI BLEED, RECENT INFLUENZA A PAF NEW ONSET, ? GI BLEED, RECENT INFLUENZA A PAF NEW ONSET, ? GI BLEED, RECENT INFLUENZA A sob Right sided numbness WEAKNESS Weakness Weakness Weakness Weakness Weakness Weakness Weakness Weakness S/P [facility] 11/21/23 DIZZINESS,IMBALANCE/RX HERE fall FALL, HEAD INJURY Reason for Visit Knee joint effusion Bilateral carotid artery stenosis Essential (primary) hypertension Nonobstructive atherosclerosis of coronary artery Peripheral vascular occlusive disease Acute kidney injury Acute hyponatremia Dehydration Atrial fibrillation Chest pressure Elevated troponin New onset atrial fibrillation Dizziness Weakness New onset atrial fibrillation Bilateral carotid artery stenosis Essential (primary) hypertension Peripheral vascular occlusive disease Chief Complaint LEFT KNEE BP CHECK / MED CHECK-IN INFLUENZA A, CHRISTOPHER INFLUENZA A, CHRISTOPHER PAF NEW ONSET, ? GI BLEED, RECENT INFLUENZA A PAF NEW ONSET, ? GI BLEED, RECENT INFLUENZA A PAF NEW ONSET, ? GI BLEED, RECENT INFLUENZA A PAF NEW ONSET, ? GI BLEED, RECENT INFLUENZA A sob Right sided numbness WEAKNESS Weakness Weakness Weakness Weakness Weakness Weakness Weakness Weakness S/P [facility] 11/21/23 DIZZINESS,IMBALANCE/RX HERE fall FALL, HEAD INJURY ANEMIA, PNEUMONIA, CHF Hypertension Reason for Visit Knee joint effusion Bilateral carotid artery stenosis Essential (primary) hypertension Nonobstructive atherosclerosis of coronary artery Peripheral vascular occlusive disease Acute kidney injury Acute hyponatremia Dehydration Atrial fibrillation Chest pressure Elevated troponin New onset atrial fibrillation Dizziness Weakness New onset atrial fibrillation Bilateral carotid artery stenosis Essential (primary) hypertension Peripheral vascular occlusive disease Acute hypotension Atrial fibrillation Atypical chest pain Community acquired pneumonia Occult blood positive stool Signs and symptoms of anemia Symptomatic anemia Essential (primary) hypertension Peripheral vascular occlusive disease Chief Complaint BP CHECK / MED CHECK -IN INFLUENZA A, CHRISTOPHER INFLUENZA A, CHRISTOPHER PAF NEW ONSET, ? GI BLEED, RECENT INFLUENZA A PAF NEW ONSET, ? GI BLEED, RECENT INFLUENZA A PAF NEW ONSET, ? GI BLEED, RECENT INFLUENZA A PAF NEW ONSET, ? GI BLEED, RECENT INFLUENZA A sob Right sided numbness WEAKNESS Weakness Weakness Weakness Weakness Weakness Weakness Weakness Weakness S/P [facility] 11/21/23 DIZZINESS,IMBALANCE/RX HERE fall FALL, HEAD INJURY ANEMIA, PNEUMONIA, CHF Hypertension ANEMIA, PNEUMONIA, CHF ANEMIA, PNEUMONIA, CHF ANEMIA, PNEUMONIA, CHF ANEMIA, PNEUMONIA, CHF ANEMIA, PNEUMONIA, CHF ANEMIA, PNEUMONIA, CHF ANEMIA, PNEUMONIA, CHF ANEMIA, PNEUMONIA, CHF ANEMIA, PNEUMONIA, CHF ANEMIA, PNEUMONIA, CHF Reason for Visit Bilateral carotid ar klever stenosis Essential (primary) hypertension Nonobstructive atherosclerosis of coronary artery Peripheral vascular occlusive disease Acute kidney injury Acute hyponatremia Dehydration Atrial fibrillation Chest pressure Elevated troponin New onset atrial fibrillation Dizziness Weakness New onset atrial fibrillation Bilateral carotid artery stenosis Essential (primary) hypertension Peripheral vascular occlusive disease Acute hypotension Atrial fibrillation Atypical chest pain Community acquired pneumonia Occult blood positive stool Signs and symptoms of anemia Symptomatic anemia Essential (primary) hypertension Peripheral vascular occlusive disease Chief Complaint INFLUENZA A, CHRISTOPHER INFLUENZA A, CHRISTOPHER PAF NEW ONSET, ? GI BLEED, RECENT INFLUENZA A PAF NEW ONSET, ? GI BLEED, RECENT INFLUENZA A PAF NEW ONSET, ? GI BLEED, RECENT INFLUENZA A PAF NEW ONSET, ? GI BLEED, RECENT INFLUENZA A sob Right sided numbness WEAKNESS Weakness Weakness Weakness Weakness Weakness Weakness Weakness Weakness S/P [facility] 11/21/23 DIZZINESS,IMBALANCE/RX HERE fall FALL, HEAD INJURY ANEMIA, PNEUMONIA, CHF Hypertension ANEMIA, PNEUMONIA, CHF ANEMIA, PNEUMONIA, CHF ANEMIA, PNEUMONIA, CHF ANEMIA, PNEUMONIA, CHF ANEMIA, PNEUMONIA, CHF ANEMIA, PNEUMONIA, CHF ANEMIA, PNEUMONIA, CHF ANEMIA, PNEUMONIA, CHF EKG CONVERTED TO NSR ANEMIA, PNEUMONIA, CHF ANEMIA, PNEUMONIA, CHF Reason for Visit Acute kidney injury Acute hyponatremia Dehydration Chest pressure Elevated troponin New onset atrial fibrillation Dizziness Weakness New onset atrial fibrillation Bilateral carotid artery stenosis Community acquired pneumonia Acute hypotension Atypical chest pain Occult blood positive stool Signs and symptoms of anemia Symptomatic anemia Chief Complaint Admit Date ELEVATED TROPONIN December 09, 2024 2 :32pm ELEVATED TROPONIN December 09, 2024 2 :58pm ELEVATED TROPONIN December 10, 2024 1 2:12pm ELEVATED TROPONIN December 10, 2024 2 :21pm ELEVATED TROPONIN December 11, 2024 1 :28pm chest pain December 17, 2024 1 0:12am S/P [facility] 12/11December 19, 2024 1 :16pm 3 M FU December 24, 2024 1 :52pm HTN EMERGENCY/NSTEMI January 10, 2025 11:45pm HTN EMERGENCY/NSTEMI January 11, 2025 1:51pm HTN EMERGENCY/NSTEMI January 11, 2025 3:35pm HTN EMERGENCY/NSTEMI January 12, 2025 10:23am HTN EMERGENCY/NSTEMI January 12, 2025 6:33pm HTN EMERGENCY/NSTEMI January 13, 2025 2:34pm E-ORDER January 15, 2025 11:07am 3 M FU February 20, 2025 1:14 pm MITRAL STENOSIS March 19, 2025 8:00am MS flare up. Nausea/ vomiting/ difficult y walking April 02, 2025 7:09pm Reason for Visit Admit Date Chest pain December 09, 2024 2 :32pm Chronic low back pain December 09, 2024 2:32pm Diastolic hypertension December 09 2:32pm Elevated troponin December 09, 2024 2 :32pm Nicotine dependence, cigarettes, uncompl icated December 09, 2024 2:32pm Mitral stenosis December 19, 2024 1 :16pm Bilateral carotid artery stenosis Chana valdez 2024 1:16pm Essential (primary) hypertension December 19, 2024 1:16pm PAF (paroxysmal atrial fibrillation) Gerald zavala 2024 1:16pm Peripheral vascular occlusive disease Javan goyal 2024 1:16pm 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 F ebruary 2024 1:52pm Hypoxemia December 24, 2024 1 :52pm Emphysema of lung December 24, 2024 1 :52pm Nicotine dependence, cigarettes, uncompl icated December 24, 2024 1:52pm Smoking greater than 30 pack years 2024 1:52pm Atherosclerotic heart diseas e of [place] coronary artery without angina pectoris January 10, 2025 11:45pm Brain aneurysm January 10, 2025 11:45pm Cardiac murmur January 10, 2025 11:45pm [place]OL[place]O (dyspnea on exertion) January 10, 2025 11:45pm Elevated troponin January 10, 2025 11:45pm Emphysema of lung January 10, 2025 11:45pm Hypertensive emergency January 10 11:45pm New onset atrial fibrillation December 212024 11:45pm NSTEMI, initial episode of care January 10, 2025 11:45pm PAF (paroxysmal atrial fibrillation) Feb ruary 2024 11:45pm Smoking greater than 30 pack years Febru vince 2024 11:45pm Mitral stenosis February 20, 2025 1:14 pm NSTEMI (non-ST elevated myocardial infar ction) February 20, 2025 1:14pm Bilateral carotid artery stenosis February 20, 2025 1:14pm Essential (primary) hypertension February 202024 1:14pm PAF (paroxysmal atrial fibrillation) Apr 2024 1:14pm Peripheral vascular occlusive disease Ap ril 2024 1:14pm Chief Complaint Admit Date S/P [facility] 12/11December 19, 2024 1 :16pm 3 M FU December 24, 2024 1 :52pm HTN EMERGENCY/NSTEMI January 10, 2025 11:45pm HTN EMERGENCY/NSTEMI January 11, 2025 1:51pm HTN EMERGENCY/NSTEMI January 11, 2025 3:35pm HTN EMERGENCY/NSTEMI January 12, 2025 10:23am HTN EMERGENCY/NSTEMI January 12, 2025 6:33pm HTN EMERGENCY/NSTEMI January 13, 2025 2:34pm E-ORDER January 15, 2025 11:07am 3 M FU February 20, 2025 1:14 pm MITRAL STENOSIS March 19, 2025 8:00am MS flare up. 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 F ebruary 2024 1:52pm Hypoxemia December 24, 2024 1 :52pm Emphysema of lung December 24, 2024 1 :52pm Nicotine dependence, cigarettes, uncompl icated December 24, 2024 1:52pm Smoking greater than 30 pack years Febru vince 2024 1:52pm Atherosclerotic heart diseas e of [place] coronary artery without angina pectoris January 10, 2025 11:45pm Brain aneurysm January 10, 2025 11:45pm Cardiac murmur January 10, 2025 11:45pm TOL[place]O (dyspnea on exertion) January 10, 2025 11:45pm Elevated troponin January 10, 2025 11:45pm Emphysema of lung January 10, 2025 11:45pm Hypertensive emergency January 10 11:45pm New onset atrial fibrillation December 212024 11:45pm NSTEMI, initial episode of care January 10, 2025 11:45pm PAF (paroxysmal atrial fibrillation) Feb ruary 2024 11:45pm Smoking greater than 30 pack years Febru vince 2024 11:45pm Mitral stenosis February 20, 2025 1:14 pm NSTEMI (non-ST elevated myocardial infar ction) February 20, 2025 1:14pm Bilateral carotid artery stenosis February 20, 2025 1:14pm Essential (primary) hypertension February 202024 1:14pm PAF (paroxysmal atrial fibrillation) Apr 2024 1:14pm Peripheral vascular occlusive disease Ap ril 2024 1:14pm Chief Complaint Admit Date S/P [facility] 12/11December 19, 2024 1 :16pm 3 M FU December 24, 2024 1 :52pm HTN EMERGENCY/NSTEMI January 10, 2025 11:45pm HTN EMERGENCY/NSTEMI January 11, 2025 1:51pm HTN EMERGENCY/NSTEMI January 11, 2025 3:35pm HTN EMERGENCY/NSTEMI January 12, 2025 10:23am HTN EMERGENCY/NSTEMI January 12, 2025 6:33pm HTN EMERGENCY/NSTEMI January 13, 2025 2:34pm E-ORDER January 15, 2025 11:07am 3 M FU February 20, 2025 1:14 pm MITRAL STENOSIS March 19, 2025 8:00am MS flare up. Nausea/ vomiting/ difficult y walking April 02, 2025 7:09pm fall April 11, 2025 1:16p m constipation April 17, 2025 10:16 pm HYPOTENSION, SYMPTOMATIC ANEMIA March 9:19pm Reason for Visit Admit Date Mitral stenosis December 19, 2024 1 :16pm Bilateral carotid artery stenosis Januar y 2024 1:16pm Essential (primary) hypertension December 19, 2024 1:16pm PAF (paroxysmal atrial fibrillation) Gerald uary 2024 1:16pm Peripheral vascular occlusive disease Ja nuary 2024 1:16pm [id number] deficiency carrier F ebruary 2024 1:52pm Hypoxemia December 24, 2024 1 :52pm Emphysema of lung December 24, 2024 1 :52pm Nicotine dependence, cigarettes, uncompl icated December 24, 2024 1:52pm Smoking greater than 30 pack years Febru 2024 1:52pm Atherosclerotic heart diseas e of [place] coronary artery without angina pectoris January 10, 2025 11:45pm Brain aneurysm January 10, 2025 11:45pm Cardiac murmur January 10, 2025 11:45pm TOL[place]O (dyspnea on exertion) January 10, 2025 11:45pm Elevated troponin January 10, 2025 11:45pm Emphysema of lung January 10, 2025 11:45pm Hypertensive emergency January 10 11:45pm New onset atrial fibrillation December [id number] 11:45pm NSTEMI, initial episode of care January 10, 2025 11:45pm PAF (paroxysmal atrial fibrillation) Feb ruary 2024 11:45pm Smoking greater than 30 pack years Febru vince 2024 11:45pm Mitral stenosis February 20, 2025 1:14 pm NSTEMI (non-ST elevated myocardial infar ction) February 20, 2025 1:14pm Bilateral carotid artery stenosis February 20, 2025 1:14pm Essential (primary) hypertension February 202024 1:14pm PAF (paroxysmal atrial fibrillation) Apr il 2024 1:14pm Peripheral vascular occlusive disease Ap ril 2024 1:14pm Microcytic anemia April 18, 2025 9:19p m Orthostatic hypotension April 18, 2025 9 :19pm Signs and symptoms of anemia April 18, 9:19pm 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 cardiac monito r April 18, 2025 9:19pm Symptomatic anemia April 18, 2025 9:19p m Acute on chronic anemia April 18, 2025 9 :19pm Chief Complaint Admit Date 3 M FU December 24, 2024 1 :52pm HTN EMERGENCY/NSTEMI January 10, 2025 11:45pm HTN EMERGENCY/NSTEMI January 11, 2025 1:51pm HTN EMERGENCY/NSTEMI January 11, 2025 3:35pm HTN EMERGENCY/NSTEMI January 12, 2025 10:23am HTN EMERGENCY/NSTEMI January 12, 2025 6:33pm HTN EMERGENCY/NSTEMI January 13, 2025 2:34pm E-ORDER January 15, 2025 11:07am 3 M FU February 20, 2025 1:14 pm MITRAL STENOSIS March 19, 2025 8:00am MS flare up. Nausea/ vomiting/ difficult y walking April 02, 2025 7:09pm fall April 11, 2025 1:16p m constipation April 17, 2025 10:16 pm SYMPTOMATIC ANEMIA April 18, 2025 9:20p m SYMPTOMATIC ANEMIA April 18, 2025 9:27p m SYMPTOMATIC ANEMIA April 19, 2025 7:10a m SYMPTOMATIC ANEMIA April 20, 2025 7:28a m SYMPTOMATIC ANEMIA April 20, 2025 1:18p m SYMPTOMATIC ANEMIA April 21, 2025 12:41 am SYMPTOMATIC ANEMIA April 21, 2025 4:15p m SYMPTOMATIC ANEMIA April 22, 2025 7:13a m SYMPTOMATIC ANEMIA April 22, 2025 12:30 pm Reason for Visit Admit Date Fcmpu-6-[id number] deficiency carrier F ebruary 2024 1:52pm Hypoxemia December 24, 2024 1 :52pm Emphysema of lung December 24, 2024 1 :52pm Nicotine dependence, cigarettes, uncompl icated December 24, 2024 1:52pm Smoking greater than 30 pack years [email or web address] 1:52pm Atherosclerotic heart diseas e of [place] coronary artery without angina pectoris January 10, 2025 11:45pm Brain aneurysm January 10, 2025 11:45pm Cardiac murmur January 10, 2025 11:45pm TOLEDO (dyspnea on exertion) January 10, 2025 11:45pm Elevated troponin January 10, 2025 11:45pm Emphysema of lung January 10, 2025 11:45pm Hypertensive emergency January 10 11:45pm New onset atrial fibrillation December [id number] 11:45pm NSTEMI, initial episode of care January 10, 2025 11:45pm PAF (paroxysmal atrial fibrillation) Feb ruary 2024 11:45pm Smoking greater than 30 pack years Reginaldu vince 2024 11:45pm Mitral stenosis February 20, 2025 1:14 pm NSTEMI (non-ST elevated myocardial infar ction) February 20, 2025 1:14pm Bilateral carotid artery stenosis February 20, 2025 1:14pm Essential (primary) hypertension February 202024 1:14pm PAF (paroxysmal atrial fibrillation) Apr il 2024 1:14pm Peripheral vascular occlusive disease Ap ril 2024 1:14pm Microcytic anemia April 18, 2025 9:20p m Orthostatic hypotension April 18, 2025 9 :20pm Signs and symptoms of anemia April 18, 2 025 9:20pm 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 cardiac monito r April 18, 2025 9:20pm Symptomatic anemia April 18, 2025 9:20p m Acute on chronic anemia April 18, 2025 9 :20pm Chief Complaint Admit Date HTN EMERGENCY/NSTEMI January 10, 2025 11:45pm HTN EMERGENCY/NSTEMI January 11, 2025 1:51pm HTN EMERGENCY/NSTEMI January 11, 2025 3:35pm HTN EMERGENCY/NSTEMI January 12, 2025 10:23am HTN EMERGENCY/NSTEMI January 12, 2025 6:33pm HTN EMERGENCY/NSTEMI January 13, 2025 2:34pm E-ORDER January 15, 2025 11:07am 3 M FU February 20, 2025 1:14 pm MITRAL STENOSIS March 19, 2025 8:00am MS flare up. Nausea/ vomiting/ difficult y walking April 02, 2025 7:09pm fall April 11, 2025 1:16p m constipation April 17, 2025 10:16 pm SYMPTOMATIC ANEMIA April 18, 2025 9:20p m SYMPTOMATIC ANEMIA April 18, 2025 9:27p m SYMPTOMATIC ANEMIA April 19, 2025 7:10a m SYMPTOMATIC ANEMIA April 20, 2025 7:28a m SYMPTOMATIC ANEMIA April 20, 2025 1:18p m SYMPTOMATIC ANEMIA April 21, 2025 12:41 am SYMPTOMATIC ANEMIA April 21, 2025 4:15p m SYMPTOMATIC ANEMIA April 22, 2025 7:13a m SYMPTOMATIC ANEMIA April 22, 2025 12:30 pm HOSP FU TESTS May 06, 2025 2:10 pm Reason for Visit Admit Date Atherosclerotic heart diseas e of [place] coronary artery without angina pectoris January 10, 2025 11:45pm Brain aneurysm January 10, 2025 11:45pm Cardiac murmur January 10, 2025 11:45pm [place] (dyspnea on exertion) January 10, 2025 11:45pm Elevated troponin January 10, 2025 11:45pm Emphysema of lung January 10, 2025 11:45pm Hypertensive emergency January 10 11:45pm New onset atrial fibrillation December [id number] 11:45pm NSTEMI, initial episode of care January 10, 2025 11:45pm PAF (paroxysmal atrial fibrillation) Feb ruary 2024 11:45pm Smoking greater than 30 pack years Febru vince 2024 11:45pm Mitral stenosis February 20, 2025 1:14 pm NSTEMI (non-ST elevated myocardial infar ction) February 20, 2025 1:14pm Bilateral carotid artery stenosis February 20, 2025 1:14pm Essential (primary) hypertension February 202024 1:14pm PAF (paroxysmal atrial fibrillation) Apr il 2024 1:14pm Peripheral vascular occlusive disease Ap ril 2024 1:14pm Acute on chronic anemia April 18, 2025 9 :20pm Microcytic anemia April 18, 2025 9:20p m Orthostatic hypotension April 18, 2025 9 :20pm Signs and symptoms of anemia April 18, 2 025 9:20pm 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 cardiac monito r April 18, 2025 9:20pm Symptomatic anemia April 18, 2025 9:20p m Chief Complaint Admit Date 3 M FU February 20, 2025 1:14 pm MITRAL STENOSIS March 19, 2025 8:00am MS flare up. Nausea/ vomiting/ difficult y walking April 02, 2025 7:09pm fall April 11, 2025 1:16p m constipation April 17, 2025 10:16 pm SYMPTOMATIC ANEMIA April 18, 2025 9:20p m SYMPTOMATIC ANEMIA April 18, 2025 9:27p m SYMPTOMATIC ANEMIA April 19, 2025 7:10a m SYMPTOMATIC ANEMIA April 20, 2025 7:28a m SYMPTOMATIC ANEMIA April 20, 2025 1:18p m SYMPTOMATIC ANEMIA April 21, 2025 12:41 am SYMPTOMATIC ANEMIA April 21, 2025 4:15p m SYMPTOMATIC ANEMIA April 22, 2025 7:13a m SYMPTOMATIC ANEMIA April 22, 2025 12:30 pm HOSP FU TESTS May 06, 2025 2:10 pm CAROTID STENOSIS/ ADD LABS May 15 12:11pm Reason for Visit Admit Date Mitral stenosis February 20, 2025 1:14 pm NSTEMI (non-ST elevated myocardial infar ction) February 20, 2025 1:14pm Bilateral carotid artery stenosis February 20, 2025 1:14pm Essential (primary) hypertension February 202024 1:14pm PAF (paroxysmal atrial fibrillation) Apr 2024 1:14pm Peripheral vascular occlusive disease Ap ril 2024 1:14pm Acute on chronic anemia April 18, 2025 9 :20pm Microcytic anemia April 18, 2025 9:20p m Orthostatic hypotension April 18, 2025 9 :20pm Signs and symptoms of anemia April 18, 2 025 9:20pm 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 cardiac monito r April 18, 2025 9:20pm Symptomatic anemia April 18, 2025 9:20p m Anemia May 06, 2025 2:10 pm Constipation May 06, 2025 2:10 pm Reason for Referral Specialty Diagnoses / Procedures Referred By Hillary t Referred To Contact Cardiology Diagnoses Other specified symptoms and signs involving the circulatory and respiratory systems Cerebrovascular disease, unspecified Procedures Vascular US carotid artery duplex bilateral Kristopher Main MD [address] [place] [address] Referral ID Status Reason Start Date Expiration Date Visits Requested Visits Authorized [id number] Pending Review Perform Procedure 2 03/02/2023 1 1 Additional Source Comments INFORMATION SOURCE (unrecogn ized section and content) DATE CREATED AUTHOR 05/13/2018 [facility] DATE CREATED AUTHOR AUTHOR'S ORGANIZ ATION 05/13/2018 [facility] DATE CREATED AUTHOR AUTHOR'S ORGANIZ ATION 12/13/2021 [facility] DATE CREATED AUTHOR AUTHOR'S ORGANIZ ATION 01/16/2024 [facility] ([place] DATE CREATED AUTHOR AUTHOR'S ORGANIZ ATION 05/08/2025 [facility] DATE CREATED AUTHOR AUTHOR'S ORGANELVIE ATION 05/18/[address] [facility] Goals (unrecognized section and content) Goals may be documented in a n alternate sectionGoals may be documented in an alternate sectionGoals may be documented in an alternate sectionGoals may be documented in an alternate sectionGoals may be documented in an alternate section No data available for this sectionGoals may be documented in an alternate sectionGoals may be documented in an alternate sectionGoals may be documented in an alternate sectionGoals may be documented in an alternate sectionGoals may be documented in an alternate sectionGoals may be documented in an alternate sectionGoals may be documented in an alternate sectionGoals may be documented in an alternate sectionGoals may be documented in an alternate sectionGoals may be documented in an alternate sectionGoals may be documented in an alternate sectionGoals may be documented in an alternate sectionGoals may be documented in an alternate sectionGoals may be documented in an alternate section Care Team (unrecognized sect ion and content) Care Team Related Persons Name: ISIDRARADHABHAVIK Name: LOLA HONG Care Teams (unrecognized sec tion and content) Team Status: Active Member Role Status Dates Dr. Daron Benton MD Family Provider Active Dr. Daron Benton MD Primary Care Provider Active Team Status: Inactive Member Role Status Dates Dr. Daron Benton MD Primary Care Provider, Referring P rovider Active Betsey Lindquist PA, PA Attending Provider Active Team Status: Inactive Member Role Status Dates Dr. Daron Benton MD Primary Care Provider, Referring P rovider Active Dr. Kai Jacobson DO Attending Provider Active Team Status: Active Member Role Status Dates Dr. Daron Benton MD Primary Care Provider Active Dr. Orlando Jacob MD Attending Provider Active Team Status: Inactive Member Role Status Dates Dr. Daron Benton MD Primary Care Provider Active Dr. Orlando Jacob MD Attending Provider Active Team Status: Inactive Member Role Status Dates Dr. Daron Benton MD Primary Care Provider Active Dr. Tye Barnett MD Attending Provider Active Team Status: Inactive Member Role Status Dates Dr. Daron Benton MD Primary Care Provider Active Dr. Tye Barnett MD Attending Provider, Referring Provider Active Team Status: Inactive Member Role Status Dates Dr. Daron Benton MD Primary Care Provide r, Attending Provider, Referring Provider Active Dr. Kristopher Main MD Other Provider Active Dr. Betina Gilliland MD Other Provider Active Team Status: Inactive Member Role Status Dates Dr. Daron Benton MD Primary Care Provider Active Betsey Lindquist PA, PA Attending Provider Active Team Status: Inactive Member Role Status Dates Dr. Daron Benton MD Primary Care Provider Active Dr. Jeffy Willoughby MD Attending Provider, Emergency Provi kevin Active Team Status: Inactive Member Role Status Dates Dr. Daron Benton MD Primary Care Provide r, Attending Provider, Referring Provider Active Team Status: Inactive Member Role Status Dates Dr. Daron Benton MD Primary Care Provider Active Dr. Gabriella Simpson DO Emergency Provider Active Team Status: Inactive Member Role Status Dates Dr. Daron Benton MD Primary Care Provider Active Dr. Gabriella Simpson DO Attending Provider, Emergency P rovider Active Team Status: Inactive Member Role Status Dates Dr. Daron Benton MD Primary Care Provider Active Dr. Jaya Campbell DO Emergency Provider Active Team Status: Inactive Member Role Status Dates Dr. Daron Benton MD Primary Care Provider, Referring P rovider Active Dr. Gilles Jasso DO Attending Provider Active Team Status: Inactive Member Role Status Dates Dr. Daron Benton MD Primary Care Provider Active Dr. Jaya Campbell DO Attending Provider, Emergency Provide r Active Team Status: Inactive Member Role Status Dates Dr. Daron Benton MD Primary Care Provider Active Dr. Gilles Jasso DO Attending Provider, Referring P rovider Active Team Status: Inactive Member Role Status Dates Dr. Daron Benton MD Primary Care Provider Active Dr. Jori Garcia MD Attending Provider, Emergency Provider Active Team Status: Active Member Role Status Dates Dr. Daron Benton MD Primary Care Provider Active Dr. Gilles Jasso DO Attending Provider, Referring P rovider Active Team Status: Inactive Member Role Status Dates Dr. Daron Benton MD Primary Care Provider, Attending P rovider Active Electroplater Automatic Relationship Specialty Start Date End Date Daron Benton [address] [facility] [address] [place] [address] PCP - General 06/23/20 Electroplater Automatic Relationship Specialty Start Date End Date Daron Benton [address] [facility] [address] [place] [id number] PCP - General 06/23/20 Electroplater Automatic Relationship Specialty Start Date End Date Daron Benton [address] [facility] [address] [place] [id number] PCP - General 06/23/20 Team Status: Inactive Member Role Status Dates Dr. Daron Benton MD Primary Care Provider, Referring P rovider Active Dr. Orlando Jacob MD Attending Provider Active Team Status: Inactive Member Role Status Dates Dr. Daron Benton MD Primary Care Provider, Referring P rovider Active Katia Chi Attending Provider Active Team Status: Inactive Member Role Status Dates Dr. Daron Benton MD Primary Care Provider Active Dr. Yasmani Haynes DO Emergency Provider Active Electropl[employer] Automatic Relationship Specialty Start Date End Date Daron Benton [address] [facility] [address] [place] [id number] PCP - General 06/23/20 Team Status: Inactive Member Role Status Dates Dr. Daron Benton MD Primary Care Provider Active Dr. Yasmani Haynes DO Attending Provider, Emergency Pr ovider Active Team Status: Inactive Member Role Status Dates Dr. Daron Benton MD Primary Care Provider Active Dr. Kai Jacobson DO Attending Provider, Referring Provider Active Team Status: Active Member Role Status Dates Dr. Daron Benton MD Primary Care Provider Active Dr. Michele Kebede MD Emergency Provider Active Dr. Sommer Resendiz MD Admit Provider, Attending Prov ider Active Team Status: Active Member Role Status Dates Dr. Daron Benton MD Primary Care Provider Active Dr. Michele Kebede MD Emergency Provider Active Dr. Sommer Resendiz MD Admit Provider, Other Provider Active Dr. Hi Garcia MD Attending Provider, Other Provi kevin Active Team Status: Inactive Member Role Status Dates Dr. Daron Benton MD Primary Care Provider Active Dr. Michele Kebede MD Emergency Provider Active Dr. Sommer Resendiz MD Admit Provider, Other Provider Active Dr. Hi Garcia MD Attending Provider Active Team Status: Active Member Role Status Dates Dr. Daron Benton MD Primary Care Provider Active Dr. Michele Kebede MD Emergency Provider Active Dr. Sommer Resendiz MD Admit Provider, Other Provider Active Dr. Sachin Murillo MD Attending Provider, Other Provider Active Team Status: Active Member Role Status Dates Dr. Daron Benton MD Primary Care Provider Active Dr. Dangelo Gallardo MD Attending Provider Active Team Status: Inactive Member Role Status Dates Dr. Daron Benton MD Primary Care Provider Active Dr. Michele Kebede MD Emergency Provider Active Dr. Sommer Resendiz MD Admit Provider, Other Provider Active Dr. Sachin Murillo MD Attending Provider Active Team Status: Inactive Member Role Status Dates Dr. Daron Benton MD Primary Care Provider Active Dr. Ramírez Onofre MD Emergency Provider Active Team Status: Active Member Role Status Dates Dr. Daron Benton MD Primary Care Provider Active Dr. Gabriella Simpson DO Emergency Provider Active Dr. Roman Mckeon MD Admit Provider, At tending Provider, Other Provider Active Team Status: Inactive Member Role Status Dates Dr. Daron Benton MD Primary Care Provider Active Dr. Ramírez Onofre MD Attending Provider, Emergency Pro vider Active Team Status: Active Member Role Status Dates Dr. Daron Benton MD Primary Care Provider Active Dr. Gabriella Simpson DO Emergency Provider Active Dr. Roman Mckeon MD Admit Provider, Attending Provid er Active Team Status: Active Member Role Status Dates Dr. Daron Benton MD Primary Care Provider Active Dr. Gabriella Simpson DO Emergency Provider Active Dr. Roman Mckeon MD Admit Provider, Other Provider A ctive Kt Friend MD Other Provider Active Dr. Ruby Wynn MD Other Provider Active Angie Shields MD Other Provider Active Dr. Jo Ann Krishnamurthy DO Other Provider Active Dr. Kiley Carpenter MD Other Provider Active Dr. Johnny Sepulveda MD Other Provider Active Dr. Nikole Allison MD Other Provider Active Dr. Gerald Suh MD Other Provider Active Dr. Kristopher Hernández MD Other Provider Active Arleen Estrada MD Other Provider Active Dr. Silvino Schmidt MD Other Provider Active Dr. Rima Riggins MD Other Provider Active Dr. Sarkis Brown MD Other Provider Active Dr. Simon Tellez MD Other Provider Active Dr. Michele Rascon MD Other Provider Active Dr. Kirsten Azevedo MD Other Provider Active Dr. Joseph Desai MD Other Provider Active Dr. Samina Mortensen MD Other Provider Active Keyona Davidson MD Other Provider Active Dr. Sachin Murillo MD Attending Provider, Other Provider Active Team Status: Active Member Role Status Dates Dr. Daron Benton MD Primary Care Provider Active Dr. Gabriella Simpson , Emergency Provider Active Dr. Roman Mckeon MD Admit Provider, Other Provider A ctive Kt Friend MD Other Provider Active Dr. Ruby Wynn MD Other Provider Active Angie Shields MD Other Provider Active Dr. Jo Ann Krishnamurthy , Other Provider Active Dr. Kiley Carpenter MD Other Provider Active Dr. Johnny Sepulveda MD Other Provider Active Dr. Nikole Allison MD Other Provider Active Dr. Gerald Suh MD Other Provider Active Dr. Kristopher Hernández MD Other Provider Active Arleen Estrada MD Other Provider Active Dr. Silvino Schmidt MD Other Provider Active Dr. Rima Riggins MD Other Provider Active Dr. Sarkis Brown MD Other Provider Active Dr. Simon Tellez MD Other Provider Active Dr. Michele Rascon MD Other Provider Active Dr. Kirsten Azevedo MD Other Provider Active Dr. Joseph Desai MD Other Provider Active Dr. Samina Mortensen MD Other Provider Active Keyona Davidson MD Other Provider Active Dr. Sachin Murillo MD Attending Provider, Other Provider Active Dr. Daniel Edmonds MD Other Provider Active Dr. Isaias Scherer MD Other Provider Active Dr. Jorge Hurtado , Other Provider Active Dr. Brandon Gaming MD Other Provider Active Dr. Anita Amezcua MD Other Provider Active Dr. Pamela Pan MD Other Provider Active Dr. Go Alejo MD Other Provider Active Dr. Jesus Alfonso MD Other Provider Active Dr. Kehinde Inman MD Other Provider Active Dr. Mendez Oviedo MD Other Provider Active Deepika Graham MD Other Provider Active Maurilio Garland MS Other Provider Active Phil Terry MD Other Provider Active SARI MENA MD Other Provider Active Jose Santos MD Other Provider Active hRiannon Farris MD Other Provider Active Team Status: Active Member Role Status Dates Dr. Daron Benton MD Primary Care Provider Active Dr. Gabriella Simpson , Emergency Provider Active Dr. Roman Mckeon MD Admit Provider, Other Provider A ctive Kt Friend MD Other Provider Active Dr. Ruby Wynn MD Other Provider Active Angie Shields MD Other Provider Active Dr. Jo Ann Krishnamurthy DO Other Provider Active Dr. Kiley Carpenter MD Other Provider Active Dr. Johnny Sepulveda MD Other Provider Active Dr. Nikole Allison MD Other Provider Active Dr. Gerald Suh MD Other Provider Active Dr. Kristopher Hernández MD Other Provider Active Arleen Estrada MD Other Provider Active Dr. Silvino Schmidt MD Other Provider Active Dr. Rima Riggins MD Other Provider Active Dr. Sarkis Brown MD Other Provider Active Dr. Simon Tellez MD Other Provider Active Dr. Michele Rascon MD Other Provider Active Dr. Kirsten Azevedo MD Other Provider Active Dr. Joseph Desai MD Other Provider Active Dr. Samina Mortensen MD Other Provider Active Keyona Davidson MD Other Provider Active Dr. Sachin Murillo MD Other Provider Active Dr. Daniel Edmonds MD Other Provider Active Dr. Isaias Scherer MD Other Provider Active Dr. Jorge Hurtado , Attending Provider, Other Provide r Active Dr. Brandon Gaming MD Other Provider Active Dr. Anita Amezcua MD Other Provider Active Dr. Pamela Pan MD Other Provider Active Dr. Go Alejo MD Other Provider Active Dr. Jesus Alfonso MD Other Provider Active Dr. Kehinde Inman MD Other Provider Active Dr. Mendez Oviedo MD Other Provider Active Deepika Graham MD Other Provider Active Maurilio Garland MS Other Provider Active Phil Terry MD Other Provider Active SARI MENA MD Other Provider Active Jose Santos MD Other Provider Active Rhiannon Farris MD Other Provider Active Team Status: Active Member Role Status Dates Dr. Daron Benton MD Primary Care Provider Active Dr. Gabriella Simpson , DO Emergency Provider Active Dr. Roman Mckeon MD Admit Provider, Other Provider A ctive Kt Friend MD Other Provider Active Dr. Ruby Wynn MD Other Provider Active Angie Shields MD Other Provider Active Dr. Jo Ann Krishnamurthy DO Other Provider Active Dr. Kiley Carpenter MD Other Provider Active Dr. Johnny Sepulveda MD Other Provider Active Dr. Nikole Allison MD Other Provider Active Dr. Gerald Suh MD Other Provider Active Dr. Kristopher Hernández MD Other Provider Active Arleen Estrada MD Other Provider Active Dr. Silvino Schmidt MD Other Provider Active Dr. Rima Riggins MD Other Provider Active Dr. Sarkis Brown MD Other Provider Active Dr. Siomn Tellez MD Other Provider Active Dr. Michele Rascon MD Other Provider Active Dr. Kirsten Azevedo MD Other Provider Active Dr. Joseph Desai MD Other Provider Active Dr. Samina Mortesnen MD Other Provider Active Keyona Davidson MD Other Provider Active Dr. Sachin Murillo MD Attending Provider, Other Provider Active Deepika Graham MD Other Provider Active Maurilio Garland MS Other Provider Active Phil Terry MD Other Provider Active SARI MENA MD Other Provider Active Jose Santos MD Other Provider Active Rhiannon Farris MD Other Provider Active Team Status: Active Member Role Status Dates Dr. Daron Benton MD Primary Care Provider Active Dr. Gabriella Simpson , Emergency Provider Active Dr. Roman Mckeon MD Admit Provider, Other Provider A ctive Dr. Ruby Wynn MD Other Provider Active Dr. Kiley Carpenter MD Other Provider Active Arleen Estrada MD Other Provider Active Dr. Rima Riggins MD Other Provider Active Dr. Sachin Murillo MD Attending Provider, Other Provider Active Deepika Graham MD Other Provider Active Maurilio Garland MS Other Provider Active Phil Terry MD Other Provider Active SARI MENA MD Other Provider Active Jose Santos MD Other Provider Active Rhiannon Farris MD Other Provider Active Kt Friend MD Other Provider Active Angie Shields MD Other Provider Active Dr. Jo Ann Krishnamurthy , Other Provider Active Dr. Johnny Sepulveda MD Other Provider Active Dr. Nikole Allison MD Other Provider Active Dr. Gerald Suh MD Other Provider Active Dr. Kristopher Hernández MD Other Provider Active Dr. Silvino Schmidt MD Other Provider Active Dr. Sarkis Brown MD Other Provider Active Dr. Simon Tellez MD Other Provider Active Dr. Michele Rascon MD Other Provider Active Dr. Kirsten Azevedo MD Other Provider Active Dr. Joseph Desai MD Other Provider Active Dr. Samina Mortensen MD Other Provider Active Keyona Davidson MD Other Provider Active Team Status: Inactive Member Role Status Dates Dr. Daron Benton MD Primary Care Provider Active Dr. Gabriella Simpson , Emergency Provider Active Dr. Roman Mckeon MD Admit Provider, Other Provider A ctive Dr. Ruby Wynn MD Other Provider Active Dr. Kiley Carpenter MD Other Provider Active Arleen Estrada MD Other Provider Active Dr. Rima Riggins MD Other Provider Active Dr. Sachin Murillo MD Attending Provider Active Deepika Graham MD Other Provider Active Maurilio Garland , MS Other Provider Active Phil Terry MD Other Provider Active SARI MENA MD Other Provider Active Jose Santos MD Other Provider Active Rhiannon Farris MD Other Provider Active Kt Friend MD Other Provider Active Angie Shields MD Other Provider Active Dr. Jo Ann Krishnamurthy , Other Provider Active Dr. Johnny Sepulveda MD Other Provider Active Dr. Nikole Allison MD Other Provider Active Dr. Gerald Suh MD Other Provider Active Dr. Kristopher Hernández MD Other Provider Active Dr. Silvino Schmidt MD Other Provider Active Dr. Sarkis Brown MD Other Provider Active Dr. Simon Tellez MD Other Provider Active Dr. Michele Rascon MD Other Provider Active Dr. Kirsten Azevedo MD Other Provider Active Dr. Joseph Desai MD Other Provider Active Dr. Samina Mortensen MD Other Provider Active Keyona Davidson MD Other Provider Active Electroplater Automatic Relationship Specialty Start Date End Date Daron Benton [address] [place] [id number] PCP - General 06/23/20 Team Status: Active Member Role Status Dates Dr. Daron Benton MD Primary Care Provider Active Dr. Gabriella Simpson , Emergency Provider Active Dr. Roman Mckeon MD Admit Provider, Other Provider A ctive Kt Friend MD Other Provider Active Dr. Ruby Wynn MD Other Provider Active Angie Shields MD Other Provider Active Dr. Jo Ann Krishnamurthy DO Other Provider Active Dr. Kiley Carpenter MD Other Provider Active Dr. Johnny Sepulveda MD Other Provider Active Dr. Nikole Allison MD Other Provider Active Dr. Gerald Suh MD Other Provider Active Dr. Kristopher Hernández MD Other Provider Active Arleen Estrada MD Other Provider Active Dr. Silvino Schmidt MD Other Provider Active Dr. Rima Riggins MD Other Provider Active Dr. Sarkis Brown MD Other Provider Active Dr. Simon Tellez MD Other Provider Active Dr. Michele Rascon MD Other Provider Active Dr. Kirsten Azevedo MD Other Provider Active Dr. Joseph Desai MD Other Provider Active Dr. Samina Mortensen MD Other Provider Active Keyona Davidson MD Other Provider Active Dr. Sachin Murillo MD Referring Provider, Other Provider Active Dr. Daniel Edmonds MD Other Provider Active Dr. Isaias Scherer MD Other Provider Active Dr. Jorge Hurtado , Attending Provider, Other Provide r Active Dr. Brandon Gaming MD Other Provider Active Dr. Anita Amezcua MD Other Provider Active Dr. Pamela Pan MD Other Provider Active Dr. Go Alejo MD Other Provider Active Dr. Jesus Alfonso MD Other Provider Active Dr. Kehinde Inman MD Other Provider Active Dr. Mendez Oviedo MD Other Provider Active Deepika Graham MD Other Provider Active Maurilio Garland MS Other Provider Active Phil Terry MD Other Provider Active SARI MENA MD Other Provider Active Jose Santos MD Other Provider Active Rhiannon Farris MD Other Provider Active Team Status: Inactive Member Role Status Dates Dr. Daron Benton MD Primary Care Provider Active Betsey Lindquist PA, PA Attending Provider, Referr ing Provider Active Team Status: Active Member Role Status Dates Dr. Daron Benton MD Primary Care Provider Active ROBERT SABA Attending Provider, Referring Provide r Active Team Status: Inactive Member Role Status Dates Dr. Daron Benton MD Primary Care Provider Active Dr. Jori Garcia MD Emergency Provider Active Team Status: Active Member Role Status Dates Dr. Daron Benton MD Primary Care Provider, Attending P gerard Active Team Status: Active Member Role Status Dates Dr. Daron Benton MD Primary Care Provider Active Dr. Jeffy Willoughby MD Emergency Provider Active Dr. Roman Mckeon MD Attending Provider Active Team Status: Active Member Role Status Dates Dr. Daron Benton MD Primary Care Provider Active Dr. Jeffy Willoughby MD Emergency Provider Active Dr. Roman Mckeon MD Admit Provider, Attending Provid er Active Team Status: Active Member Role Status Dates Dr. Daron Benton MD Primary Care Provider Active Dr. Jeffy Willoughby MD Emergency Provider Active Dr. Roman Mckeon MD Admit Provider, Other Provider A ctive Dr. Kevin Gonzalez DO Attending Provider Active Team Status: Active Member Role Status Dates Dr. Daron Benton MD Primary Care Provider Active Dr. Kevin Gonzalez DO Attending Provider Active Team Status: Active Member Role Status Dates Dr. Daron Benton MD Primary Care Provider Active Dr. Jeffy Willoughby MD Emergency Provider Active Dr. Roman Mckeon MD Admit Provider, Attending Provid er, Other Provider Active Team Status: Active Member Role Status Dates Dr. Daron Benton MD Primary Care Provider Active Dr. Jeffy Willoughby MD Emergency Provider Active Dr. Roman Mckeon MD Admit Provider, Other Provider A ctive Dr. Eva Mortensen DO Attending Provider, Other Provide r Active Team Status: Inactive Member Role Status Dates Dr. Daron Benton MD Primary Care Provider Active Dr. Jeffy Willoughby MD Emergency Provider Active Dr. Roman Mckeon MD Admit Provider, Other Provider A ctive Dr. Eva Mortensen DO Attending Provider Active Team Status: Active Member Role Status Dates Dr. Daron Benton MD Primary Care Provider Active Dr. Jeffy Willoughby MD Emergency Provider Active Dr. Roman Mckeon MD Admit Provider, Re ferring Provider, Other Provider Active Dr. Kevin Gonzalez , Attending Provider Active Team Status: Active Member Role Status Dates Dr. Daron Benton MD Primary Care Provider Active Dr. Kevin Gonzalez , Attending Provider Active Dr. Roman Mckeon MD Referring Provider Active Team Status: Active Member Role Status Dates Dr. Daron Benton MD Primary Care Provider Active Dr. Kevin Gonzalez , Attending Provider Active Dr. Eva Mortensen DO Referring Provider Active Team Status: Active Member Role Status Dates Dr. Daron Benton MD Primary Care Provider Active Dr. Bhavik Smiley MD Attending Provider Active Dr. Roman Mckeon MD Referring Provider Active Team Status: Active Member Role Status Dates Dr. Daron Benton MD Primary Care Provider Active Dr. Bhavik Smiley MD Attending Provider, Referring Provider Active Electroplater Automatic Relationship Specialty Start Date End Date Daron Benton MD [address] [place], [place] [id number] PCP - General Family Medicine 03/12/19 Tye Barnett MD [address] [facility] [address] [place] [address] Vascular Surgery 12/22/17 Electroplater Automatic Relationship Specialty Start Date End Date Daron Benton [address] [facility] [address] [place] [id number] PCP - General 06/23/20 Electroplater Automatic Relationship Specialty Start Date End Date Daron Benton [address] [facility] [address] [place] [id number] PCP - General 06/23/20 Electroplater Automatic Relationship Specialty Start Date End Date Daron Benton [address] [facility] [address] [place] [id number] PCP - General 06/23/20 Electroplater Automatic Relationship Specialty Start Date End Date Daron Benton [address] [place] [id number] PCP - General 06/23/20 Team Status: Active Member Role Status Dates Dr. Daron Benton MD Primary Care Provider Active Team Status: Inactive Member Role Status Dates Dr. Daron Benton MD Primary Care Provider Active Start: December 09, 2024 End: December 11, 2024 Nuno Grider MD Emergency Provider Active Star t: December 09, 2024 End: December 11, 2024 Dr. Trina Tyler MD Admit Provider Active Star t: December 09, 2024 End: December 11, 2024 Dr. Trina Tyler MD Other Provider Active Star t: December 09, 2024 End: December 11, 2024 Dr. Kofi Weiner MD Other Provider Active Start: December 09, 2024 End: December 11, 2024 Dr. Neha Watson MD Attending Provider Active Start: December 09, 2024 End: December 11, 2024 Team Status: Active Member Role Status Dates Dr. Daron Benton MD Primary Care Provider Active Start: December 09, 2024 Dr. Kofi Weiner MD Attending Provider Activ e Start: December 09, 2024 Dr. Trina Tyler MD Referring Provider Active Start: December 09, 2024 Team Status: Active Member Role Status Dates Dr. Daron Benton MD Primary Care Provider Active Start: December 10, 2024 Nuno Grider MD Emergency Provider Active Star t: December 10, 2024 Dr. Trina Tyler MD Admit Provider Active Star t: December 10, 2024 Dr. Trina Tyler MD Other Provider Active Star t: December 10, 2024 Dr. Kofi Weiner MD Attending Provider Activ e Start: December 10, 2024 Dr. Kofi Weiner MD Other Provider Active Start: December 10, 2024 Dr. Neha Watson MD Other Provider Active St art: December 10, 2024 Team Status: Active Member Role Status Dates Dr. Daron Benton MD Primary Care Provider Active Start: December 10, 2024 Nuno Grider MD Emergency Provider Active Star t: December 10, 2024 Dr. Trina Tyler MD Admit Provider Active Star t: December 10, 2024 Dr. Trina Tyler MD Other Provider Active Star t: December 10, 2024 Dr. Kofi Weiner MD Other Provider Active Start: December 10, 2024 Dr. Neha Watson MD Attending Provider Active Start: December 10, 2024 Dr. Neha Watson MD Other Provider Active St art: December 10, 2024 Team Status: Active Member Role Status Dates Dr. Daron Benton MD Primary Care Provider Active Start: December 11, 2024 Nuno Grider MD Emergency Provider Active Star t: December 11, 2024 Dr. Trina Tyler MD Admit Provider Active Star t: December 11, 2024 Dr. Trina Tyler MD Other Provider Active Star t: December 11, 2024 Dr. Kofi Weiner MD Other Provider Active Start: December 11, 2024 Dr. Neha Watson MD Attending Provider Active Start: December 11, 2024 Dr. Neha Watson MD Other Provider Active St art: December 11, 2024 Team Status: Inactive Member Role Status Dates Dr. Daron Benton MD Primary Care Provider Active Start: December 17, 2024 End: December 17, 2024 Dr. Jeffy Willoughby MD Attending Provider Active Sta rt: December 17, 2024 End: December 17, 2024 Dr. Jeffy Willoughby MD Emergency Provider Active Sta rt: December 17, 2024 End: December 17, 2024 Team Status: Inactive Member Role Status Dates Dr. Daron Benton MD Primary Care Provider Active Start: December 19, 2024 End: December 19, 2024 Dr. Daron Benton MD Referring Provider Active St art: December 19, 2024 End: December 19, 2024 Betsey Lindquist PA, PA Attending Provider Active Start: December 19, 2024 End: December 19, 2024 Team Status: Inactive Member Role Status Dates Dr. Daron Benton MD Primary Care Provider Active Start: December 24, 2024 End: December 24, 2024 Dr. Daron Benton MD Referring Provider Active St art: December 24, 2024 End: December 24, 2024 STEPHANY Anderson Attending Provider Active Start: December 24, 2024 End: December 24, 2024 Team Status: Inactive Member Role Status Dates Dr. Daron Benton MD Primary Care Provider Active Start: January 10, 2025 End: January 13, 2025 Dr. Benjy Flores DO Referring Provider Active Start: January 10, 2025 End: January 13, 2025 Dr. Benjy Flores DO Emergency Provider Active Start: January 10, 2025 End: January 13, 2025 Dr. Sommer Resendiz MD Admit Provider Active St art: January 10, 2025 End: January 13, 2025 Dr. Sommer Resendiz MD Other Provider Active St art: January 10, 2025 End: January 13, 2025 Dr. Carlos A Parikh MD Other Provider Active Star t: January 10, 2025 End: January 13, 2025 Dr. Dex Worrell DO Attending Provider Active Start: January 10, 2025 End: January 13, 2025 Dr. Neha Watson MD Other Provider Active St art: January 10, 2025 End: January 13, 2025 Team Status: Active Member Role Status Dates Dr. Daron Benton MD Primary Care Provider Active Start: January 11, 2025 Dr. Benjy Flores DO Referring Provider Active Start: January 11, 2025 Dr. Benjy Flores DO Emergency Provider Active Start: January 11, 2025 Dr. Sommer Resendiz MD Admit Provider Active St art: January 11, 2025 Dr. Sommer Resendiz MD Other Provider Active St art: January 11, 2025 Dr. Carlos A Parikh MD Attending Provider Active Start: January 11, 2025 Dr. Carlos A Parikh MD Other Provider Active Star t: January 11, 2025 Dr. Neha Watson MD Other Provider Active St art: January 11, 2025 Team Status: Active Member Role Status Dates Dr. Daron Benton MD Primary Care Provider Active Start: January 11, 2025 Dr. Benjy Flores DO Emergency Provider Active Start: January 11, 2025 Dr. Sommer Resendiz MD Admit Provider Active St art: January 11, 2025 Dr. Sommer Resendiz MD Other Provider Active St art: January 11, 2025 Dr. Carlos A Parikh MD Other Provider Active Star t: January 11, 2025 Dr. Neha Watson MD Attending Provider Active Start: January 11, 2025 Dr. Neha Watson MD Other Provider Active St art: January 11, 2025 Team Status: Active Member Role Status Dates Dr. Daron Benton MD Primary Care Provider Active Start: January 12, 2025 Dr. Kofi Weiner MD Attending Provider Activ e Start: January 12, 2025 Team Status: Active Member Role Status Dates Dr. Daron Benton MD Primary Care Provider Active Start: January 12, 2025 Dr. Benjy Flores DO Referring Provider Active Start: January 12, 2025 Dr. Benjy Flores DO Emergency Provider Active Start: January 12, 2025 Dr. Sommer Resendiz MD Admit Provider Active St art: January 12, 2025 Dr. Sommer Resendiz MD Other Provider Active St art: January 12, 2025 Dr. Carlos A Parikh MD Other Provider Active Star t: January 12, 2025 Dr. Dex Worrell DO Other Provider Active S tart: January 12, 2025 Dr. Neha Watson MD Other Provider Active St art: January 12, 2025 Dr. Bhavik Smiley MD Attending Provider Active Start: January 12, 2025 Team Status: Active Member Role Status Dates Dr. Daron Benton MD Primary Care Provider Active Start: January 12, 2025 Dr. Benjy Flores DO Emergency Provider Active Start: January 12, 2025 Dr. Sommer Resendiz MD Admit Provider Active St art: January 12, 2025 Dr. Sommer Resendiz MD Other Provider Active St art: January 12, 2025 Dr. Carlos A Parikh MD Other Provider Active Star t: January 12, 2025 Dr. Dex Worrell DO Attending Provider Active Start: January 12, 2025 Dr. Dex Worrell DO Other Provider Active S tart: January 12, 2025 Dr. Neha Watson MD Other Provider Active St art: January 12, 2025 Team Status: Active Member Role Status Dates Dr. Daron Benton MD Primary Care Provider Active Start: January 13, 2025 Dr. Benjy Flores DO Emergency Provider Active Start: January 13, 2025 Dr. Sommer Resendiz MD Admit Provider Active St art: January 13, 2025 Dr. Sommer Resendiz MD Other Provider Active St art: January 13, 2025 Dr. Carlos A Parikh MD Other Provider Active Star t: January 13, 2025 Dr. Dex Worrell DO Attending Provider Active Start: January 13, 2025 Dr. Dex Worrell DO Other Provider Active S tart: January 13, 2025 Dr. Neha Watson MD Other Provider Active St art: January 13, 2025 Team Status: Inactive Member Role Status Dates Dr. Daron Benton MD Primary Care Provider Active Start: January 15, 2025 End: January 15, 2025 Dr. Daron Benton MD Attending Provider Active St art: January 15, 2025 End: January 15, 2025 Dr. Daron Benton MD Referring Provider Active St art: January 15, 2025 End: January 15, 2025 Team Status: Inactive Member Role Status Dates Dr. Daron Benton MD Primary Care Provider Active Start: February 20, 2025 End: February 20, 2025 Dr. Daron Benton MD Referring Provider Active St art: February 20, 2025 End: February 20, 2025 Betsey Lindquist PA, PA Attending Provider Active Start: February 20, 2025 End: February 20, 2025 Team Status: Inactive Member Role Status Dates Dr. Daron Benton MD Primary Care Provider Active Start: March 19, 2025 End: March 19, 2025 Dr. Orlando Jacob MD Attending Provider Active S tart: March 19, 2025 End: March 19, 2025 Dr. Orlando Jacob MD Other Provider Active Start : March 19, 2025 End: March 19, 2025 Betsey Lindquist PA, PA Referring Provider Active Start: March 19, 2025 End: March 19, 2025 Team Status: Active Member Role Status Dates Dr. Daron Benton MD Primary Care Provider Active Start: March 19, 2025 Dr. Orlando Jacob MD Attending Provider Active S tart: March 19, 2025 Team Status: Inactive Member Role Status Dates Dr. Daron Benton MD Primary Care Provider Active Start: April 02, 2025 End: April 02, 2025 Nuno Grider MD Referring Provider Active Star t: April 02, 2025 End: April 02, 2025 Nuno Grider MD Emergency Provider Active Star t: April 02, 2025 End: April 02, 2025 Electroplater Automatic Relationship Specialty Start Date End Date Alex Bentonic Danielle [address] [place] [id number] PCP - General 06/23/20 Team Status: Inactive Member Role Status Dates Dr. Daron Benton MD Primary Care Provider Active Start: April 02, 2025 End: April 02, 2025 Nuno Grider MD Attending Provider Active Star t: April 02, 2025 End: April 02, 2025 Nuno Grider MD Referring Provider Active Star t: April 02, 2025 End: April 02, 2025 Nuno Grider MD Emergency Provider Active Star t: April 02, 2025 End: April 02, 2025 Team Status: Inactive Member Role Status Dates Dr. Daron Benton MD Primary Care Provider Active Start: April 11, 2025 End: April 11, 2025 Dr. Ramírez Onofre MD Attending Provider Active S tart: April 11, 2025 End: April 11, 2025 Dr. Ramírez Onofre MD Emergency Provider Active S tart: April 11, 2025 End: April 11, 2025 Team Status: Inactive Member Role Status Dates Dr. Daron Benton MD Primary Care Provider Active Start: April 17, 2025 End: April 18, 2025 Dr. Yasmani Haynes DO Referring Provider Active Start: April 17, 2025 End: April 18, 2025 Dr. Yasmani Haynes DO Emergency Provider Active Start: April 17, 2025 End: April 18, 2025 Team Status: Active Member Role Status Dates Dr. Daron Benton MD Primary Care Provider Active Start: April 18, 2025 Dr. Jeffy Willoughby MD Emergency Provider Active Sta rt: April 18, 2025 Dr. Sachin Murillo MD Admit Provider Active Start: April 18, 2025 Dr. Sachin Murillo MD Attending Provider Active Start: April 18, 2025 Dr. Sachin Murillo MD Referring Provider Active Start: April 18, 2025 Team Status: Inactive Member Role Status Dates Dr. Daron Benton MD Primary Care Provider Active Start: April 18, 2025 End: April 22, 2025 Dr. Jeffy Willoughby MD Emergency Provider Active Sta rt: April 18, 2025 End: April 22, 2025 Dr. Sachin Murillo MD Admit Provider Active Start: April 18, 2025 End: April 22, 2025 Dr. Sachin Murillo MD Referring Provider Active Start: April 18, 2025 End: April 22, 2025 Dr. Sachin Murillo MD Other Provider Active Start: April 18, 2025 End: April 22, 2025 Dr. Roman Mckeon MD Attending Provider Active Start: April 18, 2025 End: April 22, 2025 Team Status: Active Member Role Status Dates Dr. Daron Benton MD Primary Care Provider Active Start: April 18, 2025 Dr. Jeffy Willoughby MD Emergency Provider Active Sta rt: April 18, 2025 Dr. Sachin Murillo MD Admit Provider Active Start: April 18, 2025 Dr. Sachin Murillo MD Attending Provider Active Start: April 18, 2025 Dr. Sachin Murillo MD Other Provider Active Start: April 18, 2025 Team Status: Active Member Role Status Dates Dr. Daron Benton MD Primary Care Provider Active Start: April 19, 2025 Dr. Jeffy Willoughby MD Emergency Provider Active Sta rt: April 19, 2025 Dr. Sachin Murillo MD Admit Provider Active Start: April 19, 2025 Dr. Sachin Murillo MD Referring Provider Active Start: April 19, 2025 Dr. Sachin Murillo MD Other Provider Active Start: April 19, 2025 Dr. Roman Mckeon MD Attending Provider Active Start: April 19, 2025 Dr. Roman Mckeon MD Other Provider Active Star t: April 19, 2025 Team Status: Active Member Role Status Dates Dr. Daron Benton MD Primary Care Provider Active Start: April 20, 2025 Dr. Jeffy Willoughby MD Emergency Provider Active Sta rt: April 20, 2025 Dr. Sachin Murillo MD Admit Provider Active Start: April 20, 2025 Dr. Sachin Murillo MD Referring Provider Active Start: April 20, 2025 Dr. Sachin Murillo MD Other Provider Active Start: April 20, 2025 Dr. Roman Mckeon MD Attending Provider Active Start: April 20, 2025 Dr. Roman Mckeon MD Other Provider Active Star t: April 20, 2025 Team Status: Active Member Role Status Dates Dr. Daron Benton MD Primary Care Provider Active Start: April 20, 2025 Dr. Jeffy Willoughby MD Emergency Provider Active Sta rt: April 20, 2025 Dr. Sachin Murillo MD Admit Provider Active Start: April 20, 2025 Dr. Sachin Murillo MD Referring Provider Active Start: April 20, 2025 Dr. Sachin Murillo MD Other Provider Active Start: April 20, 2025 Dr. Roman Mckeon MD Other Provider Active Star t: April 20, 2025 Dr. Kevin Gonzalez DO Attending Provider Active Start: April 20, 2025 Team Status: Active Member Role Status Dates Dr. Daron Benton MD Primary Care Provider Active Start: April 21, 2025 Dr. Jeffy Willoughby MD Emergency Provider Active Sta rt: April 21, 2025 Dr. Sachin Murillo MD Admit Provider Active Start: April 21, 2025 Dr. Sachin Murillo MD Referring Provider Active Start: April 21, 2025 Dr. Sachin Murillo MD Other Provider Active Start: April 21, 2025 Dr. Roman Mckeon MD Other Provider Active Star t: April 21, 2025 Dr. Sommer Resendiz MD Attending Provider Active Start: April 21, 2025 Team Status: Active Member Role Status Dates Dr. Daron Benton MD Primary Care Provider Active Start: April 21, 2025 Dr. Jeffy Willoughby MD Emergency Provider Active Sta rt: April 21, 2025 Dr. Sachin Murillo MD Admit Provider Active Start: April 21, 2025 Dr. Sachin Murillo MD Referring Provider Active Start: April 21, 2025 Dr. Sachin Murillo MD Other Provider Active Start: April 21, 2025 Dr. Roman Mckeon MD Other Provider Active Star t: April 21, 2025 Dr. Kevin Gonzalez DO Attending Provider Active Start: April 21, 2025 Team Status: Active Member Role Status Dates Dr. Daron Benton MD Primary Care Provider Active Start: April 22, 2025 Dr. Jeffy Willoughby MD Emergency Provider Active Sta rt: April 22, 2025 Dr. Sachin Murillo MD Admit Provider Active Start: April 22, 2025 Dr. Sachin Murillo MD Referring Provider Active Start: April 22, 2025 Dr. Sachin Murillo MD Other Provider Active Start: April 22, 2025 Dr. Roman Mckeon MD Attending Provider Active Start: April 22, 2025 Dr. Roman Mckeon MD Other Provider Active Star t: April 22, 2025 Team Status: Active Member Role Status Dates Dr. Daron Benton MD Primary Care Provider Active Start: April 22, 2025 Dr. Jeffy Willoughby MD Emergency Provider Active Sta rt: April 22, 2025 Dr. Sachin Murillo MD Admit Provider Active Start: April 22, 2025 Dr. Sachin Murillo MD Referring Provider Active Start: April 22, 2025 Dr. Sachin Murillo MD Other Provider Active Start: April 22, 2025 Dr. Roman Mckeon MD Other Provider Active Star t: April 22, 2025 Dr. Kevin Gonzalez DO Attending Provider Active Start: April 22, 2025 Team Status: Inactive Member Role Status Dates Dr. Daron Benton MD Primary Care Provider Active Start: April 17, 2025 End: April 18, 2025 Dr. Yasmani Haynes DO Attending Provider Active Start: April 17, 2025 End: April 18, 2025 Dr. Yasmani Haynes DO Referring Provider Active Start: April 17, 2025 End: April 18, 2025 Dr. Yasmani Haynes DO Emergency Provider Active Start: April 17, 2025 End: April 18, 2025 Team Status: Active Member Role Status Dates Dr. Daron Benton MD Primary Care Provider Active Start: April 19, 2025 Dr. Jeffy Willoughby MD Emergency Provider Active Sta rt: April 19, 2025 Dr. Sachin Murillo MD Admit Provider Active Start: April 19, 2025 Dr. Sachin Murillo MD Other Provider Active Start: April 19, 2025 Dr. Roman Mckeon MD Attending Provider Active Start: April 19, 2025 Dr. Roman Mckeon MD Other Provider Active Star t: April 19, 2025 Team Status: Active Member Role Status Dates Dr. Daron Benton MD Primary Care Provider Active Start: April 20, 2025 Dr. Jeffy Willoughby MD Emergency Provider Active Sta rt: April 20, 2025 Dr. Sachin Murillo MD Admit Provider Active Start: April 20, 2025 Dr. Sachin Murillo MD Other Provider Active Start: April 20, 2025 Dr. Roman Mckeon MD Attending Provider Active Start: April 20, 2025 Dr. Roman Mckeon MD Other Provider Active Star t: April 20, 2025 Team Status: Active Member Role Status Dates Dr. Daron Benton MD Primary Care Provider Active Start: April 21, 2025 Dr. Jeffy Willoughby MD Emergency Provider Active Sta rt: April 21, 2025 Dr. Sachin Murillo MD Admit Provider Active Start: April 21, 2025 Dr. Sachin Murillo MD Other Provider Active Start: April 21, 2025 Dr. Roman Mckeon MD Attending Provider Active Start: April 21, 2025 Dr. Roman Mckeon MD Other Provider Active Star t: April 21, 2025 Team Status: Active Member Role Status Dates Dr. Daron Benton MD Primary Care Provider Active Start: April 22, 2025 Dr. Jeffy Willoughby MD Emergency Provider Active Sta rt: April 22, 2025 Dr. Sachin Murillo MD Admit Provider Active Start: April 22, 2025 Dr. Sachin Murillo MD Other Provider Active Start: April 22, 2025 Dr. Roman Mckeon MD Attending Provider Active Start: April 22, 2025 Dr. Roman Mckeon MD Other Provider Active Star t: April 22, 2025 Team Status: Inactive Member Role Status Dates Dr. Daron Benton MD Primary Care Provider Active Start: May 06, 2025 End: May 06, 2025 Dr. Daron Benton MD Referring Provider Active St art: May 06, 2025 End: May 06, 2025 Iona Bradley BEE RANCHER-C Attending Provider Active Start: May 06, 2025 End: May 06, 2025 Electroplater Automatic Relationship Specialty Start Date End Date Daron Benton [address] [facility] [address] [place] [id number] PCP - General 06/23/20 Team Status: Active Member Role/Relationship Status Dates Dr. Daron Benton MD Primary Care Provider Active Team Status: Inactive Member Role/Relationship Status Dates Dr. Daron Benton MD Primary Care Provider Active Start: February 20, 2025 End: February 20, 2025 Dr. Daron Benton MD Referring Provider Active St art: February 20, 2025 End: February 20, 2025 Betsey Lindquist PA, PA Attending Provider Active Start: February 20, 2025 End: February 20, 2025 Team Status: Inactive Member Role/Relationship Status Dates Dr. Daron Benton MD Primary Care Provider Active Start: March 19, 2025 End: March 19, 2025 Dr. Orlando Jacob MD Attending Provider Active S tart: March 19, 2025 End: March 19, 2025 Dr. Orlando Jacob MD Other Provider Active Start : March 19, 2025 End: March 19, 2025 Betsey Lindquist PA, PA Referring Provider Active Start: March 19, 2025 End: March 19, 2025 Team Status: Active Member Role/Relationship Status Dates Dr. Daron Benton MD Primary Care Provider Active Start: March 19, 2025 Dr. Orlando Jacob MD Attending Provider Active S tart: March 19, 2025 Team Status: Inactive Member Role/Relationship Status Dates Dr. Daron Benton MD Primary Care Provider Active Start: April 02, 2025 End: April 02, 2025 Nuno Grider MD Attending Provider Active Star t: April 02, 2025 End: April 02, 2025 Nuno Grider MD Referring Provider Active Star t: April 02, 2025 End: April 02, 2025 Nuno Grider MD Emergency Provider Active Star t: April 02, 2025 End: April 02, 2025 Team Status: Inactive Member Role/Relationship Status Dates Dr. Daron Benton MD Primary Care Provider Active Start: April 11, 2025 End: April 11, 2025 Dr. Ramírez Onofre MD Attending Provider Active S tart: April 11, 2025 End: April 11, 2025 Dr. Ramírez Onofre MD Emergency Provider Active S tart: April 11, 2025 End: April 11, 2025 Team Status: Inactive Member Role/Relationship Status Dates Dr. Daron Benton MD Primary Care Provider Active Start: April 17, 2025 End: April 18, 2025 Dr. Yasmani Haynes DO Attending Provider Active Start: April 17, 2025 End: April 18, 2025 Dr. Yasmani Haynes DO Referring Provider Active Start: April 17, 2025 End: April 18, 2025 Dr. Yasmani Haynes DO Emergency Provider Active Start: April 17, 2025 End: April 18, 2025 Team Status: Inactive Member Role/Relationship Status Dates Dr. Daron Benton MD Primary Care Provider Active Start: April 18, 2025 End: April 22, 2025 Dr. Jeffy Willoughby MD Emergency Provider Active Sta rt: April 18, 2025 End: April 22, 2025 Dr. Sachin Murillo MD Admit Provider Active Start: April 18, 2025 End: April 22, 2025 Dr. Sachin Murillo MD Referring Provider Active Start: April 18, 2025 End: April 22, 2025 Dr. Sachin Murillo MD Other Provider Active Start: April 18, 2025 End: April 22, 2025 Dr. Roman Mckeon MD Attending Provider Active Start: April 18, 2025 End: April 22, 2025 Team Status: Active Member Role/Relationship Status Dates Dr. Daron Benton MD Primary Care Provider Active Start: April 18, 2025 Dr. Jeffy Willoughby MD Emergency Provider Active Sta rt: April 18, 2025 Dr. Sachin Murillo MD Admit Provider Active Start: April 18, 2025 Dr. Sachin Murillo MD Attending Provider Active Start: April 18, 2025 Dr. Sachin Murillo MD Other Provider Active Start: April 18, 2025 Team Status: Active Member Role/Relationship Status Dates Dr. Daron Benton MD Primary Care Provider Active Start: April 19, 2025 Dr. Jeffy Willoughby MD Emergency Provider Active Sta rt: April 19, 2025 Dr. Sachin Murillo MD Admit Provider Active Start: April 19, 2025 Dr. Sachin Murillo MD Other Provider Active Start: April 19, 2025 Dr. Roman Mckeon MD Attending Provider Active Start: April 19, 2025 Dr. Roman Mckeon MD Other Provider Active Star t: April 19, 2025 Team Status: Active Member Role/Relationship Status Dates Dr. Daron Benton MD Primary Care Provider Active Start: April 20, 2025 Dr. Jeffy Willoughby MD Emergency Provider Active Sta rt: April 20, 2025 Dr. Sachin Murillo MD Admit Provider Active Start: April 20, 2025 Dr. Sachin Murillo MD Other Provider Active Start: April 20, 2025 Dr. Roman Mckeon MD Attending Provider Active Start: April 20, 2025 Dr. Roman Mckeon MD Other Provider Active Star t: April 20, 2025 Team Status: Active Member Role/Relationship Status Dates Dr. Daron Benton MD Primary Care Provider Active Start: April 20, 2025 Dr. Jeffy Willoughby MD Emergency Provider Active Sta rt: April 20, 2025 Dr. Sachin Murillo MD Admit Provider Active Start: April 20, 2025 Dr. Sachin Murillo MD Referring Provider Active Start: April 20, 2025 Dr. Sachin Murillo MD Other Provider Active Start: April 20, 2025 Dr. Roman Mckeon MD Other Provider Active Star t: April 20, 2025 Dr. Kevin Gonzalez DO Attending Provider Active Start: April 20, 2025 Team Status: Active Member Role/Relationship Status Dates Dr. Daron Benton MD Primary Care Provider Active Start: April 21, 2025 Dr. Jeffy Willoughby MD Emergency Provider Active Sta rt: April 21, 2025 Dr. Sachin Murillo MD Admit Provider Active Start: April 21, 2025 Dr. Sachin Murillo MD Other Provider Active Start: April 21, 2025 Dr. Roman Mckeon MD Attending Provider Active Start: April 21, 2025 Dr. Roman Mckeon MD Other Provider Active Star t: April 21, 2025 Team Status: Active Member Role/Relationship Status Dates Dr. Daron Benton MD Primary Care Provider Active Start: April 21, 2025 Dr. Jeffy Willoughby MD Emergency Provider Active Sta rt: April 21, 2025 Dr. Sachin Murillo MD Admit Provider Active Start: April 21, 2025 Dr. Sachin Murillo MD Referring Provider Active Start: April 21, 2025 Dr. Sachin Murillo MD Other Provider Active Start: April 21, 2025 Dr. Roman Mckeon MD Other Provider Active Star t: April 21, 2025 Dr. Kevin Gonzalez DO Attending Provider Active Start: April 21, 2025 Team Status: Active Member Role/Relationship Status Dates Dr. Daron Benton MD Primary Care Provider Active Start: April 22, 2025 Dr. Jeffy Willoughby MD Emergency Provider Active Sta rt: April 22, 2025 Dr. Sachin Murillo MD Admit Provider Active Start: April 22, 2025 Dr. Sachin Murillo MD Other Provider Active Start: April 22, 2025 Dr. Roman Mckeon MD Attending Provider Active Start: April 22, 2025 Dr. Roman Mckeon MD Other Provider Active Star t: April 22, 2025 Team Status: Active Member Role/Relationship Status Dates Dr. Daron Benton MD Primary Care Provider Active Start: April 22, 2025 Dr. Jeffy Willoughby MD Emergency Provider Active Sta rt: April 22, 2025 Dr. Sachin Murillo MD Admit Provider Active Start: April 22, 2025 Dr. Sachin Murillo MD Referring Provider Active Start: April 22, 2025 Dr. Sachin Murillo MD Other Provider Active Start: April 22, 2025 Dr. Roman Mckeon MD Other Provider Active Star t: April 22, 2025 Dr. Kevin Gonzalez DO Attending Provider Active Start: April 22, 2025 Team Status: Inactive Member Role/Relationship Status Dates Dr. Daron Benton MD Primary Care Provider Active Start: May 06, 2025 End: May 06, 2025 Dr. Daron Benton MD Referring Provider Active St art: May 06, 2025 End: May 06, 2025 STEPHANY Nunez Attending Provider Active Start: May 06, 2025 End: May 06, 2025 Team Status: Inactive Member Role/Relationship Status Dates Dr. Daron Benton MD Primary Care Provider Active Start: May 15, 2025 End: May 15, 2025 Dr. Daron Benton MD Other Provider Active Start: May 15, 2025 End: May 15, 2025 Dr. Tye Barnett MD Attending Provider Active Start: May 15, 2025 End: May 15, 2025 Dr. Tye Barnett MD Referring Provider Active Start: May 15, 2025 End: May 15, 2025 Reason for Visit (unrecogniz ed section and content) Reason Comments Med Change Request Reason Onset Date Comments Med Refill 06/04/2023 Reason Onset Date Comments Med Refill 06/15/2023 Reason Onset Date Comments Orders 10/05/2023 Reason Comments Hospital Follow-up Reason Comments Follow-up Dizziness Extremity Weakness Reason Onset Date Comments Med Refill 02/11/2024 Reason Comments Med Refill Reason Comments Follow-up Multiple Sclerosis Reason Onset Date Comments Orders 03/09/2025 MRI order Reason Comments Follow-up Multiple Sclerosis Reason Onset Date Comments Med Refill 04/24/2025 Baclofen Reason Onset Date Comments Prior Authorization 05/05/2025 Source Comments (unrecognize d section and content) In the event this informatio n is protected by the Federal Confidentiality of Alcohol and Drug Abuse Patient Records regulations: The Federal rules restrict any use of the information to criminally investigate or prosecute any alcohol or drug abuse patient.[facility] FOR RECORDS PERTAINING TO PATIENTS WHO ARE [...] BE BASED ON THE PRIMARY CLINICAL RECORDS. [facility] provides no warranty or guarantee of the accuracy or completeness of information in this document.
--- OUTSIDE RECORDS SUMMARY | 2025-05-19 23:15 | XMS RPT_ITS | CCD ---
Author Organization [facility] CliniSyla Care Team Providers Care Splitter Machine Name Role Phone YOGESH ONOFRE Unavailable Unavailabl e ZHANE PARRA Unavailable Unavailable YOGESH ONOFRE Unavailable Unavailable ZHANE DE Unavailable Unavailable GEOVANI DEA Janett Unavailable Unavailable Dr. Daron Benton Primary Care Provider [phone] Daron Benton Referring Provider Dr. Kai Jacobson Attending Provider 1([facility])[phone] MARIANA Davenport Attending Provider Dr. Daron Benton Primary Care Provider 1([facility])[phone] Daron Benton Referring Provider 1([facility])[phone] Daron Benton Primary Care Provider [phone] Daron Benton Referring Provider 1([facility])[phone] MARIANA Davenport Attending Provider Dr. Daron Benton Primary Care Provider 1([facility])[phone] Daron Benton Referring Provider 1([facility])[phone] Kai Jacobson Attending Provider 1([facility])[phone] MARIANA Davenport Attending Provider Dr. Orlando Jacob Attending Provider Dr. Daron Benton Primary Care Provider [phone] Daron Benton Referring Provider Dr. Kai Jacobson Attending Provider MARIANA Davenport Attending Provider Dr. Orlando Jacob Attending Provider 1([facility])[phone] Daron Benton Primary Care Provider [...] Attending Provider Dr. Michele Kebede Emergency Provider [phone] Dr. Sommer Resendiz Admit Provider Dr. Sommer Resendiz Other Provider Dr. Hi Garcia Attending Provider Dr. Hi Garcia Other Provider Dr. Sachin Murillo Attending Provider Dr. Sachin Murillo Other Provider Dr. Dangelo Gallardo Attending Provider Dr. Daron Benton Primary Care [...] Provider Unavailable Dr. Daniel Edmonds Other Provider [phone] Dr. Isaias Scherer Other Provider Dr. Jorge Hurtado Attending Provider [phone] Jorge Hurtado Other Provider Dr. Brandon [...] Provider Unavailable Dr. Sachin Murillo Referring Provider [phone] Dr. Daniel Edmonds Other Provider Dr. Isaias [...] Other Provider Dr. Jeffy Willoughby Emergency Provider [phone] Daron Benton Primary Care Provider Dr. Daron Benton Referring Provider Lisa, Dr. Brown Attending Provider [phone] Dr. Eva Mortensen Attending Provider Dr. Eva [...] Provider Kati FOX, Dr. Strauss [facility], Dr. Kowalski Attending Provider Kati FOX, Dr. Strauss Attending Provider [facility] , Dr. Kowalski Other Provider Baljit FOX, [...] Provider Kati FOX, Dr. Strauss Other Provider [facility], Dr. Kowalski Attending Provider Shirley [...] Provider Betsey [place] Referring Provider Marni FOX, Nuon Attending Provider Marni FOX, Nuno Referring Provider Marni FOX, Nuno Emergency Provider Kingston FOX, Dr. Elmore Attending Provider Kingston FOX, Dr. Elmore Emergency Provider Ivy HERNANDEZ, Dr. Gruber Referring Provider Asaes , Dr. Gruber Emergency Provider Dr. Jeffy Willoughby MD Emergency Provider Lidia FOX, Dr. Sachin Prieto Admit Provider Lidia FOX, Dr. Sachin Prieto Attending Provider Lidia [...] Ivy HERNANDEZ, Dr. Gruber Referring Provider Ivy HERNANDEZ, Dr. Gruber Emergency Provider Case FOX, Dr. [...] Care Unavailable Betsey Daven[place] Attending Unavail able Benton, Daron Primary Care Unavailable Benton, Daron Referring Unavailable Betsey [place] Attending Unavail able Kevin Gonzalez Attending Unavailable Benton, Daron Primary Care [...] Chetan FOX, Dr. Neri Primary Care Provider Dr. Daron Benton MD Referring Provider Dr. Daron Benton MD Other Provider [phone] Tye Barnett MD Attending Provider Dr. Tye Barnett MD Referring Provider Allergies Allergy Classification Reported Allergen(s) Allergy Type Date of Onset Reaction(s) Facility (4 sources) Antihistamines; Translations: [ANTIHISTAMINES] Propensity to adverse reactions to drug (disorder) 04-28-[address] [facility] (3 sources) clopidogrel; Translations: [CLOPIDOGREL BISULFATE] Drug Allergy 12-18-19 12 Other: See Comments [facility] (20 sources) codeine; Translations: [CODEINE] Drug Allergy 04-28-[address] [facility] (3 sources) fenofibrate; Translations: [FENOFIBRATE MICRONIZED] Drug Allergy 04-27-[address] [facility] (20 sources) fentaNYL; Translations: [FENTANYL] Drug Allergy 02-19-20 12 Other: See Comments [facility] (3 sources) Hmg-Coa Reductase Inhibitors (Statins); Translations: [RDNSDCS-XBC-GMW REDUCTASE INHIBITORS] Propensity to adverse reactions to drug (disorder) 04-27-[address] [facility] (20 sources) morphine; Translations: [MORPHINE] Drug Allergy 04-28-20 04 Nausea, Vomiting [facility] (20 sources) predniSONE; Translations: [PREDNISONE] Drug Allergy 12-15-[address] [facility] (20 sources) salicylic acid; Translations: [SALICYLATES] Drug Allergy 12-04-[address] [facility] (20 sources) Amitriptyline Drug Allergy 03-12-20 19 Rash [facility] (20 sources) Aspirin; Translations: [aspirin] Drug Allergy 02-15-20 22 Ulcer (morphologic abnormality) [facility] (20 sources) Colestipol; Translations: [colestipol] Drug Allergy 02-15-20 22 unknown [facility] (20 sources) Ethylenediamine derivative antihistamine Propensity to adverse reactions 02-15-20 22 Nausea/Vom/[place]ella [facility] (20 sources) pregabalin Drug Allergy 02-15-20 22 Hives [facility] (20 sources) Temazepam Drug Allergy 02-15-20 22 Nausea/Vom/[place] [facility] (20 sources) Antihistamines - Alkylamine; Translations: [Antihistamines - Alkylamine] Propensity to adverse reactions 02-15-20 22 Nausea/Vom/[place] [facility] (20 sources) Antihistamines - Ethanolamine; Translations: [Antihistamines - Ethanolamine] Propensity to adverse reactions 02-15-20 22 Nausea/Vom/[place]ella [facility] (20 sources) Antihistamines - Piperazine; Translations: [Antihistamines - Piperazine] Propensity to adverse reactions 02-15-20 22 Nausea/Vom/[place]ella [facility] (20 sources) Antihistamines - Piperidine; Translations: [Antihistamines - Piperidine] Propensity to adverse reactions 02-15-20 22 Nausea/Vom/[place]ella [facility] (20 sources) Nlbujwa-Agr-Xbn Reductase Inhibitor; Translations: [Qgpbmnu-Ast-Skd Reductase Inhibitor] Propensity to adverse reactions 02-15-20 22 Nausea [facility] (8 sources) STEROIDS BY MOUTH Propensity to adverse reactions 02-15-20 22 Upset Stomach [facility] (1 source) HMG-CoA reductase inhibitor; Translations: [statins] Drug allergy [facility] (20 sources) Glucocorticoid Receptor Agonists Propensity to adverse reactions 03-16-20 23 Upset Stomach [facility] (17 sources) clopidogrel Drug Allergy 12-18-[address] [facility] (17 sources) Fenofibrate Drug Allergy 04-27-[address] [facility] (17 sources) Antihistamines, Diphenhydramine-Ty pe Drug Intolerance 09-17-[address] [facility] (1 source) Amitriptyline Drug Allergy 05-06-20 [facility] (1 source) Aspirin Drug Allergy 05-06-20 25 [facility] (1 source) Colestipol Drug Allergy 05-06-20 25 [facility] (1 source) Corticosteroids Drug allergy (disorder) 05-06-20 25 [facility] (1 source) pregabalin Drug Allergy 05-06-20 25 [facility] (1 source) Temazepam Drug Allergy 05-06-20 [facility] (1 source) Antihistamines - Ethylenediamine Drug allergy (disorder) 05-06-20 [facility] Repository Medications Current Medications Medication Drug Class(es) Dates Sig (Normalized) Sig (Original) acetaminophen 325 mg / HYDROcodone bitartrate 5 mg oral tablet (1 source) Opioid Agonist take 1 tablet by mouth every six hours as needed HYDROcodone-acetam inophen (NORCO) 5-325 mg per tablet Take 1 tablet by mouth every 6 hours as needed. Active [id number] 200 actuat albuterol 0.09 mg/actuat metered dose [...] extended release oral tablet (20 sources) Uncompetitive V-hgerlf-L-aspartate Receptor Antagonist, Sigma-1 Agonist Start: 11-16-2023 End: [...] take 5-10 mg by mouth at bedti ri Doxepin 10 mg/mL concentrate Active 5 - [...] Start: 02-02-2015 take 1 capsule by mo [facility] three times daily gabapentin (NEURONTIN) 400 mg [...] Start: 08-23-2011 take 2 tablets by mo [facility] once daily levothyroxine 25 mcg ORAL tablet [...] 2025 12:00am administer into each nostril Ipratropium [place] 42 mcg ( 0.06 %) spray,non-aerosol (2 sources) Start: 12-24-2024 End: 04-18-2025 Ipratropium [place] 42 mcg (0.06 %) spray,non-aerosol Discontinued 2 [...] coronary artery; Translations: [Atherosclerotic heart disease of [place] coronary artery without angina pectoris] Onset: 5 [...] sources) Long-term current use of anticoagulant; Translations: [retirement (current) use of anticoagulants] 01-18-2024 Episodic Other [...] 025 TG AB < 1.0 Normal 0.0-0.9 [facility] Comment on above: Result Comment: Thyr oglobulin Antibody measured by [employer] EngineeringMethodologyIt should be noted that the presence of thyroglobulinantibodies may not be pathogenic nor diagnostic, especiallyat very low levels. The assay test administrator has found thatfour percent of individuals without evidence of thyroiddisease or autoimmunity will have positive TgAb levels upto 4 IU/mL.Performed at: - [facility] [place], [place] [id number] Director: Damion Richards PhD, Phone: [phone] Performed By: #### L 3300.6750, L503.0106, L506.0200 ####[facility] [address] [place], [place], [id number] THYR PEROX AB < 9 Normal 0-34 [facility] Comment on above: Performed By: #### L 3300.6750, L503.0106, L506.0200 ####[facility] [address] [place], [address] Absolute lymphocyte countOrd ered By: Daron Benton on 05-15-2025 Lymphocytes Auto (Unsp spec) [#/Vol] 1.09 10*3/uL 0.83-4.51 [facility] Anion gap in Serum or Plasma Ordered By: Daron Benton on 05-15-2025 Anion gap [Moles/Vol] 11 mmol/L 5-15 [facility] Automated lymphocyte count a s percentage of total leukocytesOrdered By: Daron Benton on 05-15-2025 Lymphocytes/100 WBC Auto (Unsp spec) 13.0 % Low 19-41 [facility] BUN/creatinine ratioOrdered By: Daron Benton on 05-15-2025 Urea nitrogen/Creatinine [Mass ratio] 22.7 mg/mg High 10-20 [facility] Basophil percentageOrdered B y: Daron Benton on 05-15-2025 Basophils/100 WBC (Bld) 0.8 % 0-1 [facility] Bilirubin, totalOrdered By: Daron Benton on 05-15-2025 Bilirubin [Mass/Vol] 0.18 mg/dL 0.00-1.30 [facility] Blood manual differential co mment interpretation (narrative result)Ordered By: Daron Benton on 05-15-2025 Manual differential comment Jimy (Bld) [Interp] SCANNED [facility] Blood polychromasia detectio n by light microscopyOrdered By: Daron Benton on 05-15-2025 Polychromasia LM Ql (Bld) 1+ [facility] CBC W/Diff, Automatedon 06-2 Anisocytosis Ql (Bld) 1+ Normal [facility] Comment on above: Order Comment: Order Date: 05/15/25Order Info: 183-11 - CBCDOrder Info: [id number] - RETIC Performed By: #### L 100.0100, L100.9950, L506.0400, L500.4050, L501.9520, L503.6030, L503.6550, L501.94304 ####[facility] [address] [place], [address] HYPOCHROMASIA 1+ Normal [facility] Comment on above: Order Comment: Order Date: 05/15/25Order Info: 183-11 - CBCDOrder Info: [id number] - RETIC Performed By: #### L 100.0100, L100.9950, L506.0400, L500.4050, L501.9520, L503.6030, L503.6550, L501.50334 ####[facility] [address] [place], [address] PLT EST ADEQUATE Normal ADEQ [facility] Comment on above: Order Comment: Order Date: 05/15/25Order Info: 183-11 - CBCDOrder Info: 4679-7 - RETIC Performed By: #### L 100.0100, L100.9950, L506.0400, L500.4050, L501.9520, L503.6030, L503.6550, L501.96751 ####[facility] [address] [place], [address] POLYCHROMASIA 1+ Normal [facility] Comment on above: Order Comment: Order Date: 05/15/25Order Info: 183-11 - CBCDOrder Info: 4679- - RETIC Performed By: #### L 100.0100, L100.9950, L506.0400, L500.4050, L501.9520, L503.6030, L503.6550, L501.26381 ####[facility] [address] [place], [address] SMEAR COMMENT SCANNED Normal [facility] Comment on above: Order Comment: Order Date: 05/15/25Order Info: 0184-1 - CBCDOrder Info: 4679-7 - RETIC Performed By: #### L 100.0100, L100.9950, L506.0400, L500.4050, L501.9520, L503.6030, L503.6550, L501.74166 ####[facility] [address] [place], [address] CTA Neck W/WO Contraston CTA Neck W/WO Contrast Normal [facility] Carbon dioxide, total [Moles /volume] in Central venous bloodOrdered By: Daron Benton on 05-15-2025 CO2 [Moles/Vol] 25.0 mmol/L 21.0-32.0 [facility] Chloride assayOrdered By: Alex Benton on 05-15-2025 Chloride [Moles/Vol] 100 mmol/L 98-108 [facility] Comprehensive Metabolic Prof ilon 05-15-2025 Albumin [Mass/Vol] 3.9 g/dL Normal 3.4-4.8 [facility] Comment on above: Order Comment: Order Date: 05/15/25Order Info: 0786-1 - CMPOrder Info: 3051-0 - X7NOyfep Info: 3016-3 - TSHOrder Info: 26989-0 - IBCOrder Info: 2276-4 - FEROrder Info: 2284-8 - FOLSOrder Info: 3024-7 - T4F Performed By: #### L 100.0100, L100.9950, L506.0400, L500.4050, L501.9520, L503.6030, L503.6550, L501.03281 ####[facility] [address] [place], [address] Albumin/Globulin [Mass ratio] 1.7 {ratio} Normal 0.9-2.4 [facility] Comment on above: Order Comment: Order Date: 05/15/25Order Info: 0786-1 - CMPOrder Info: 3051-0 - S6ZJmgml Info: 3016-3 - TSHOrder Info: 32137-3 - IBCOrder Info: 2276-02 - FEROrder Info: 2284-06 - FOLSOrder Info: 7 - T4F Performed By: #### L 100.0100, L100.9950, L506.0400, L500.4050, L501.9520, L503.6030, L503.6550, L501.26131 ####[facility] [address] [facility] [facility] [address] [place], [place], [id number] ALK PHOS 102 U/L Normal 35-104 [facility] Comment on above: Order Comment: Order Date: 05/15/25Order Info: 07 - CMPOrder Info: 0 - Y5PJecqz Info: 3 - TSHOrder Info: - IBCOrder Info: 2276-02 - FEROrder Info: 2284-06 - FOLSOrder Info: 3024-05 - T4F Performed By: #### L 100.0100, L100.9950, L506.0400, L500.4050, L501.9520, L503.6030, L503.6550, L501.64831 ####[facility] [address] [place], [place], [id number] ALT [Catalytic activity/Vol] 14 U/L Normal <=34 [facility] Comment on above: Order Comment: Order Date: 05/15/25Order Info: 0786-1 - CMPOrder Info: 3051-0 - O9IQyoue Info: 63 - TSHOrder Info: 05387-3 - IBCOrder Info: 2276-02 - FEROrder Info: 2284-06 - FOLSOrder Info: 7 - T4F Performed By: #### L 100.0100, L100.9950, L506.0400, L500.4050, L501.9520, L503.6030, L503.6550, L501.80426 ####[facility] [address] [place], [place], [address] AST [Catalytic activity/Vol] 23 U/L Normal <=31 [facility] Comment on above: Order Comment: Order Date: 05/15/25Order Info: 07-1 - CMPOrder Info: 0 - Q6TCoswz Info: 3 - TSHOrder Info: 43581-0 - IBCOrder Info: 4 - FEROrder Info: 8 - FOLSOrder Info: 7 - T4F Performed By: #### L 100.0100, L100.9950, L506.0400, L500.4050, L501.9520, L503.6030, L503.6550, L501.66758 ####[facility] [address] [place], [place], [address] Bilirubin [Mass/Vol] 0.18 mg/dL Normal 0.00-1.30 [facility] Comment on above: Order Comment: Order Date: 05/15/25Order Info: 07-1 - CMPOrder Info: 0 - K9EQoqhc Info: 3 - TSHOrder Info: [id number] - IBCOrder Info: 2276-02 - FEROrder Info: 2284-06 - FOLSOrder Info: 3023-7 - T4F Performed By: #### L 100.0100, L100.9950, L506.0400, L500.4050, L501.9520, L503.6030, L503.6550, L501.24148 ####[facility] [address] [place], [place], [id number] BUN/CRE 22.7 RATIO High 10-20 [facility] Comment on above: Order Comment: Order Date: 05/15/25Order Info: 0786-1 - CMPOrder Info: 0 - V9GYrvaw Info: 3 - TSHOrder Info: - IBCOrder Info: 2276-02 - FEROrder Info: 2284-06 - FOLSOrder Info: 302-7 - T4F Performed By: #### L 100.0100, L100.9950, L506.0400, L500.4050, L501.9520, L503.6030, L503.6550, L501.11519 ####[facility] [address] [place], [address] Calcium [Mass/Vol] 9.1 mg/dL Normal 7.6-11.0 [facility] Comment on above: Order Comment: Order Date: 05/15/25Order Info: 0786- - CMPOrder Info: 0 - Z2UVtsuy Info: 3 - TSHOrder Info: - IBCOrder Info: 2276-02 - FEROrder Info: 2284-06 - FOLSOrder Info: 7 - T4F Performed By: #### L 100.0100, L100.9950, L506.0400, L500.4050, L501.9520, L503.6030, L503.6550, L501.89997 ####[facility] [address] [place], [address] Chloride [Moles/Vol] 100 mmol/L Normal 98-108 [facility] Comment on above: Order Comment: Order Date: 05/15/25Order Info: 0786-1 - CMPOrder Info: 0 - L6XLpzzw Info: 3 - TSHOrder Info: - IBCOrder Info: 2276-02 - FEROrder Info: 2284-06 - FOLSOrder Info: 3024-7 - T4F Performed By: #### L 100.0100, L100.9950, L506.0400, L500.4050, L501.9520, L503.6030, L503.6550, L501.67868 ####[facility] [address] [place], [place], [address] CO2 [Moles/Vol] 25.0 mmol/L Normal 21.0-32.0 [facility] Comment on above: Order Comment: Order Date: 05/15/25Order Info: 0786-1 - CMPOrder Info: 3051-0 - H3JHwrat Info: 3016-3 - TSHOrder Info: 74528-9 - IBCOrder Info: 2275-4 - FEROrder Info: 8 - FOLSOrder Info: 3024-7 - T4F Performed By: #### L 100.0100, L100.9950, L506.0400, L500.4050, L501.9520, L503.6030, L503.6550, L501.79986 ####[facility] [address] [facility] [address] [place], [place], [id number] Creatinine [Mass/Vol] 1.13 mg/dL Normal 0.70-1.20 [facility] Comment on above: Order Comment: Order Date: 05/15/25Order Info: 0786-1 - CMPOrder Info: 3051-0 - B7QJyczh Info: 3016-3 - TSHOrder Info: 59572-6 - IBCOrder Info: 2276-02 - FEROrder Info: 8 - FOLSOrder Info: 3024-7 - T4F Performed By: #### L 100.0100, L100.9950, L506.0400, L500.4050, L501.9520, L503.6030, L503.6550, L501.23041 ####[facility] [address] [place], [place], [address] GAP 11 Normal 5-15 [facility] Comment on above: Order Comment: Order Date: 05/15/25Order Info: 0786-1 - CMPOrder Info: 3051-0 - G8NEvsbs Info: 3016-3 - TSHOrder Info: 26532-8 - IBCOrder Info: 2275-4 - FEROrder Info: 228-8 - FOLSOrder Info: 3024-7 - T4F Performed By: #### L 100.0100, L100.9950, L506.0400, L500.4050, L501.9520, L503.6030, L503.6550, L501.88936 ####[facility] [address] [facility] [place], [place], [phone] GFR/1.73 sq M.predicted among non-blacks MDRD (S/P/Bld) [Vol rate/Area] 52 mL/min/{1.73_m2} Low >60 [facility] Comment on above: Order Comment: Order Date: 05/15/25Order Info: 0786-1 - CMPOrder Info: 0 - M6IEkujt Info: 3016-01 - TSHOrder Info: 64122-7 - IBCOrder Info: 2276-02 - FEROrder Info: 2284-06 - FOLSOrder Info: 3024-05 - T4F Result Comment: mL/m in/1.73m2 CKD-EPI Creatinine Equation (2020) Performed By: #### L 100.0100, L100.9950, L506.0400, L500.4050, L501.9520, L503.6030, L503.6550, L501.14794 ####[facility] [address] [facility] [place], [place], [phone] Globulin (S) [Mass/Vol] 2.3 g/dL Normal 2.2-4.2 [facility] Comment on above: Order Comment: Order Date: 05/15/25Order Info: 0786-1 - CMPOrder Info: 3050-0 - W4QJpafp Info: 3016-01 - TSHOrder Info: - IBCOrder Info: 2276-02 - FEROrder Info: 2284-06 - FOLSOrder Info: 3024-05 - T4F Performed By: #### L 100.0100, L100.9950, L506.0400, L500.4050, L501.9520, L503.6030, L503.6550, L501.64795 ####[facility] [address] [place], [address] Glucose [Mass/Vol] 105 mg/dL High 70-99 [facility] Comment on above: Order Comment: Order Date: 05/15/25Order Info: 0786-1 - CMPOrder Info: 3051-0 - E3ABfreu Info: 3016-3 - TSHOrder Info: 20778-6 - IBCOrder Info: 2276-02 - FEROrder Info: 2284-06 - FOLSOrder Info: 3024-7 - T4F Performed By: #### L 100.0100, L100.9950, L506.0400, L500.4050, L501.9520, L503.6030, L503.6550, L501.10163 ####[facility] [address] [place], [address] Potassium [Moles/Vol] 4.5 mmol/L Normal 3.3-5.1 [facility] Comment on above: Order Comment: Order Date: 05/15/25Order Info: 0786-1 - CMPOrder Info: 3051-0 - S0GMdpoc Info: 6-3 - TSHOrder Info: - IBCOrder Info: 2276-02 - FEROrder Info: 2284-06 - FOLSOrder Info: 3023-7 - T4F Performed By: #### L 100.0100, L100.9950, L506.0400, L500.4050, L501.9520, L503.6030, L503.6550, L501.60601 ####[facility] [address] [place], [address] Sodium [Moles/Vol] 136 mmol/L Normal 133-145 [facility] Comment on above: Order Comment: Order Date: 05/15/25Order Info: 0786-1 - CMPOrder Info: 3051-0 - S0OPfqxr Info: 6-3 - TSHOrder Info: 89459-3 - IBCOrder Info: 2276-02 - FEROrder Info: 2284-06 - FOLSOrder Info: 7 - T4F Performed By: #### L 100.0100, L100.9950, L506.0400, L500.4050, L501.9520, L503.6030, L503.6550, L501.24151 ####[facility] [address] [place], [address] T PROT 6.2 g/dL Normal 5.9-8.4 [facility] Comment on above: Order Comment: Order Date: 05/15/25Order Info: 0786-1 - CMPOrder Info: 0 - J9XCtfzl Info: 3016-01 - TSHOrder Info: - IBCOrder Info: 2276-02 - FEROrder Info: 2284-06 - FOLSOrder Info: 3024-05 - T4F Performed By: #### L 100.0100, L100.9950, L506.0400, L500.4050, L501.9520, L503.6030, L503.6550, L501.66033 ####[facility] [address] [place], [place], [phone]) Urea nitrogen [Mass/Vol] 26 mg/dL High 4-19 [facility] Comment on above: Order Comment: Order Date: 05/15/25Order Info: [id number] - CMPOrder Info: 0 - M2FMwiof Info: 3016-01 - TSHOrder Info: - IBCOrder Info: 2276-02 - FEROrder Info: 2284-06 - FOLSOrder Info: 7 - T4F Performed By: #### L 100.0100, L100.9950, L506.0400, L500.4050, L501.9520, L503.6030, L503.6550, L501.22709 ####[facility] [address] [place], [place], [address](051) Eosinophil percentageOrdered By: Daron Benton on 06-27-2025 Eosinophils/100 WBC (Bld) 9.3 % High 0-5 [facility] Erythrocyte distribution wid th ratioOrdered By: Daron Benton on 05-15-2025 Erythrocyte distribution width (RBC) [Ratio] 19.3 % High 11.6-14.6 [facility] Erythrocyte distribution wid th standard deviationOrdered By: Daron Benton on 05-15-2025 Erythrocyte distribution width (RBC) [Ratio] 61.2 fl High 35.1-43.9 [facility] Ferritinon 05-15-2025 Ferritin [Mass/Vol] 19 ng/mL Low 22-378 [facility] Comment on above: Order Comment: Order Date: 05/15/25Order Info: 0786-1 - CMPOrder Info: 3051-0 - B1JUflvb Info: 3016-3 - TSHOrder Info: 47630-7 - IBCOrder Info: 2276-4 - FEROrder Info: 2284-8 - FOLSOrder Info: 3024-7 - T4F Performed By: #### L 100.0100, L100.9950, L506.0400, L500.4050, L501.9520, L503.6030, L503.6550, L501.03298 ####[facility] [address] [place], [place], [address] Folate [Moles/volume] in Ser um or PlasmaOrdered By: Daron Benton on 05-15-2025 Folate [Moles/Vol] 8.24 ng/mL 4.60-34.80 [facility] Folates,Serum (Folic Acid)on 05-15-2025 FOLATES,SERUM 8.24 ng/mL Normal 4.60-34.80 [facility] Comment on above: Order Comment: N Performed By: #### L 3300.6750, L503.0106, L506.0200 ####[facility] [address] [place], [address] Free T3on 05-15-2025 Free T3 [Mass/Vol] 2.7 pg/mL Normal 2.18-3.98 [facility] Comment on above: Order Comment: Order Date: 05/15/25Order Info: [id number] - CMPOrder Info: 3051-0 - Y3NWcahs Info: 3016-3 - TSHOrder Info: [id number] - IBCOrder Info: 2276-4 - FEROrder Info: 2288 - FOLSOrder Info: 3024-7 - T4F Performed By: #### L 100.0100, L100.9950, L506.0400, L500.4050, L501.9520, L503.6030, L503.6550, L501.75949 ####[facility] [address] [place], [place], [address] Free K1Yyuiylm By: Daron swanson on 05-15-2025 Free T3 [Mass/Vol] 2.7 pg/mL 2.18-3.98 [facility] Glomerular filtration rate ( GFR) estimation/1.73 sq m using serum, plasma, or whole bOrdered By: Daron Benton on 05-15-2025 GFR/1.73 sq M.predicted among non-blacks MDRD (S/P/Bld) [Vol rate/Area] 52 mL/min/{1.73_m2} Low >60 [facility] Hematocrit Auto (Bld) [Volum e fraction]Ordered By: Daron Benton on 05-15-2025 Hematocrit (Bld) [Volume fraction] 24.4 % Low 37-47 [facility] Hemoglobin measurementOrdere d By: Daron Benton on 05-15-2025 Hemoglobin (Bld) [Mass/Vol] 7.4 g/dL Low 12.0-15.0 [facility] Hypochromatic red blood cell detectionOrdered By: Daron Benton on 05-15-2025 Hypochromia Ql (Bld) 1+ [facility] Immature granulocytes/100 WB C Auto (Bld)Ordered By: Daron Benton on 05-15-2025 Immature granulocytes/100 WBC (Bld) 0.600 % 0.0-0.9 [facility] Iron measurement (mass/mass) Ordered By: Daron Benton on 05-15-2025 Iron (Unsp spec) [Mass/Mass] 48 ug/dL Low 50-170 [facility] Iron+Iron Binding Capacityon 05-15-2025 Iron [Mass/Vol] 48 ug/dL Low 50-170 [facility] Comment on above: Order Comment: Order Date: 05/15/25Order Info: 86-1 - CMPOrder Info: 3051-0 - W6DMhztm Info: 6-3 - TSHOrder Info: [id number] - IBCOrder Info: 2276-02 - FEROrder Info: 2284-06 - FOLSOrder Info: 302-7 - T4F Performed By: #### L 100.0100, L100.9950, L506.0400, L500.4050, L501.9520, L503.6030, L503.6550, L501.75856 ####[facility] [address] [place], [place], [id number](688) IRON SATURATION 13.0 Normal 13-59 [facility] Comment on above: Order Comment: Order Date: 05/15/25Order Info: [id number] - CMPOrder Info: 0 - U2FQnccp Info: 3 - TSHOrder Info: [id number] - IBCOrder Info: 2276-02 - FEROrder Info: 2284-06 - FOLSOrder Info: 3023-7 - T4F Performed By: #### L 100.0100, L100.9950, L506.0400, L500.4050, L501.9520, L503.6030, L503.6550, L501.66792 ####[facility] [address] [place], [place], [id number](217) TIBC 379 ug/dL Normal 250-450 [facility] Comment on above: Order Comment: Order Date: 05/15/25Order Info: 785-1 - CMPOrder Info: 3050-0 - E3SRtsvp Info: 6-3 - TSHOrder Info: 80815-7 - IBCOrder Info: 2276-02 - FEROrder Info: 2284-06 - FOLSOrder Info: 302-7 - T4F Performed By: #### L 100.0100, L100.9950, L506.0400, L500.4050, L501.9520, L503.6030, L503.6550, L501.51605 ####[facility] [address] [place], [place], [address] UIBC 331 ug/dL Normal 228-428 [facility] Comment on above: Order Comment: Order Date: 05/15/25Order Info: [id number] - CMPOrder Info: 3051-0 - C5LVtgrx Info: 3016-3 - TSHOrder Info: [id number] - IBCOrder Info: 2276-4 - FEROrder Info: 2284-06 - FOLSOrder Info: 3024-7 - T4F Performed By: #### L 100.0100, L100.9950, L506.0400, L500.4050, L501.9520, L503.6030, L503.6550, L501.72892 ####[facility] [address] [place], [address] MCV (mean corpuscular volume ) determinationOrdered By: Daron Benton on 05-15-2025 MCV (RBC) [Entitic vol] 87.5 fL 81-99 [facility] Mean corpuscular hemoglobin (MCH) determinationOrdered By: Daron Benton on 05-15-2025 MCH (RBC) [Entitic mass] 26.5 pg Low 27.0-32.0 [facility] Monocyte percentageOrdered B y: Daron Benton on 05-15-2025 Monocytes/100 WBC (Bld) 5.9 % 0-10 [facility] Neutrophil percentageOrdered By: Daron Benton on 05-15-2025 Neutrophils/100 WBC (Bld) 70.4 % High 47-70 [facility] No Panel InformationOrdered By: Daron Benton on 05-15-2025 1+ [facility] 23 U/L <32 [facility] 331 ug/dL 228-428 [facility] Platelet countOrdered By: Alex Benton on 05-15-2025 Platelets (Bld) [#/Vol] 213 10*3/uL 150-450 [facility] Platelet estimateOrdered By: Daronchandler Benton on 05-15-2025 Platelets LM Ql (Bld) ADEQUATE ADEQ [facility] Potassium measurement (mass/ volume)Ordered By: Daron Benton on 05-15-2025 Potassium (Unsp spec) [Mass/Vol] 4.5 mmol/L 3.3-5.1 [facility] RBC Auto (Bld) [#/Vol]Ordere d By: Daron Benton on 05-15-2025 RBC (Bld) [#/Vol] 2.79 10*6/uL Low 4.2-5.4 [facility] Retic Panelon 05-15-2025 IM RET FRACTION 25.70 High 3.00-15.90 [facility] Comment on above: Order Comment: Order Date: 05/15/25Order Info: [id number] - CBCDOrder Info: 4679-7 - RETIC Performed By: #### L 100.0100, L100.9950, L506.0400, L500.4050, L501.9520, L503.6030, L503.6550, L501.00383 ####[facility] [address] [place], [place], [id number] RET-HE 25.2 pg Low 30-35 [facility] Comment on above: Order Comment: Order Date: 05/15/25Order Info: 0184-1 - CBCDOrder Info: 4679-7 - RETIC Performed By: #### L 100.0100, L100.9950, L506.0400, L500.4050, L501.9520, L503.6030, L503.6550, L501.17929 ####[facility] [address] [place], [place], [id number] Retic Count 4.47 High 0.5-1.5 [facility] Comment on above: Order Comment: Order Date: 05/15/25Order Info: [id number] - CBCDOrder Info: 4679-7 - RETIC Performed By: #### L 100.0100, L100.9950, L506.0400, L500.4050, L501.9592, L503.7555, L503.9431, L501.54232 ####[facility] [address] [place], [address] Reticulocyte hemoglobin equi valent (RET-He) measurementOrdered By: Daron Benton on 05-15-2025 Hemoglobin (Reticulocytes) [Entitic mass] 25.2 pg Low 30-35 [facility] Reticulocytes Auto (Bld) [#/ Vol]Ordered By: Daron Benton on 05-15-2025 Reticulocytes/100 RBC (Bld) 4.47 % High 0.5-1.5 [facility] Serum creatinine measurement (mass/volume)Ordered By: Daron Benton on 05-15-2025 Creatinine [Mass/Vol] 1.13 mg/dL 0.70-1.20 [facility] Serum globulin measurementOr dered By: Daron Benton on 05-15-2025 Globulin (S) [Mass/Vol] 2.3 g/dL 2.2-4.2 [facility] Serum glucose measurement (m ass/volume)Ordered By: Daron Benton on 05-15-2025 Glucose [Mass/Vol] 105 mg/dL High 70-99 [facility] Serum or plasma alanine pizarro otransferase (ALT) measurementOrdered By: Daron Benton on 05-15-2025 ALT [Catalytic activity/Vol] 14 U/L <35 [facility] Serum or plasma albumin stefania urement (mass/volume)Ordered By: Daron Benton on 05-15-2025 Albumin [Mass/Vol] 3.9 g/dL 3.4-4.8 [facility] Serum or plasma albumin/glob ulin mass ratioOrdered By: Daron Benton on 05-15-2025 Albumin/Globulin [Mass ratio] 1.7 {ratio} 0.9-2.4 [facility] Serum or plasma alkaline anthony sphatase measurementOrdered By: Daron Benton on 05-15-2025 ALP [Catalytic activity/Vol] 102 U/L 35-104 [facility] Serum or plasma calcium stefania urement (mass/volume)Ordered By: Daron Benton on 05-15-2025 Calcium [Mass/Vol] 9.1 mg/dL 7.6-11.0 [facility] Serum or plasma ferritin felicia surement (mass/volume)Ordered By: Daron Benton on 05-15-2025 Ferritin [Mass/Vol] 19 ng/mL Low 22-378 [facility] Serum or plasma iron saturat ion measurement (mass fraction)Ordered By: Daron Benton on 05-15-2025 Iron saturation [Mass fraction] 13.0 % 13-59 [facility] Serum or plasma thyroperoxid ase antibody assay (units/volume)Ordered By: Daron Benton on 05-15-2025 TPO Ab Qn [IU]/mL 0-34 [facility] Serum or plasma urea nitroge n measurement (mass/volume)Ordered By: Daron Benton on 05-15-2025 Urea nitrogen [Mass/Vol] 26 mg/dL High 4-19 [facility] Sodium levelOrdered By: Daron Benton on 05-15-2025 Sodium [Moles/Vol] 136 mmol/L 133-145 [facility] T4 Free Directon 05-15-2025 T4 FREE DIRECT 1.50 ng/dL High 0.76-1.46 [facility] Comment on above: Order Comment: Order Date: 05/15/25Order Info: [id number] - CMPOrder Info: 3051-0 - I5ORmqbl Info: 3016-3 - TSHOrder Info: [id number] - IBCOrder Info: 2276-4 - FEROrder Info: 2284-8 - FOLSOrder Info: 3024-7 - T4F Performed By: #### L 100.0100, L100.9950, L506.0400, L500.4050, L501.9520, L503.6030, L503.6550, L501.86776 ####[facility] [address] [place], [place], [address] T4 freeOrdered By: Daron swanson on 05-15-2025 Free T4 [Mass/Vol] 1.50 ng/dL High 0.76-1.46 [facility] TSH DL <= 0.005 mIU/L QnOrde red By: Daron Benton on 05-15-2025 TSH Qn 1.680 uIU/mL 0.300-4.20 0 [facility] Thyroid Stim Hormone (TSH)on 05-15-2025 TSH 1.680 uIU/mL Normal 0.300-4.20 0 [facility] Comment on above: Order Comment: Order Date: 05/15/25Order Info: [id number] - CMPOrder Info: 3051-0 - Q7XRuvzi Info: 3016-3 - TSHOrder Info: - IBCOrder Info: [id number] - FEROrder Info: 2284-06 - FOLSOrder Info: 3024-7 - T4F Performed By: #### L 100.0100, L100.9950, L506.0400, L500.4050, L501.9520, L503.6030, L503.6550, L501.34874 ####[facility] [address] [place], [place], [id number] Total proteinOrdered By: Nila Benton on 05-15-2025 Protein [Mass/Vol] 6.2 g/dL 5.9-8.4 [facility] Vitamin B12on 05-15-2025 Cobalamin (Vitamin B12) [Mass/Vol] 366 pg/mL Normal 180-914 [facility] Comment on above: Order Comment: Order Date: 05/15/25Order Info: 0786-1 - CMPOrder Info: 3051-0 - P2YTcmxv Info: 3015-3 - TSHOrder Info: - IBCOrder Info: 2276-02 - FEROrder Info: 2284-06 - FOLSOrder Info: 3024-7 - T4F Performed By: #### L 3300.6750, L503.0106, L506.0200 ####[facility] [address] [place], [place], [id number] Vitamin B12 ser/plasOrdered By: Daron Benton on 05-15-2025 Cobalamin (Vitamin B12) [Mass/Vol] 366 pg/mL 180-914 [facility] White blood cell (WBC) count Ordered By: Daron Benton on 05-15-2025 WBC (Bld) [#/Vol] 8.4 10*3/uL 4.4-11.0 [facility] 36on 05-06-2025 36 Faxed New Auth to [facility] @ [phone], Valid 05/06/25 Thru 07/05/25 Brain MRI wo Contrast. Normal [facility] Gastroenterology Visit Repor ton 05-06-2025 Gastroenterology Visit Report Normal [facility] 36on 05-05-2025 36 [facility] phone number: [phone] Relationship to Patient: Imaging Provider: Robert Practice: neuro Chief Complaint/Reason for Call: Viki states patients prior auth is expiring and will need a new one for patient schedule MRI on 05/20 @130 fax # [phone]. Normal [facility] 36on 04-24-2025 36 Baclofen 20mg sent t o [facility] in [place]. Normal [facility] 36 Name of caller: Parvez santos Contact phone number: [phone] Relationship to Patient: patient Provider: AURORA Lynn Practice: Neurology Chief Complaint/Reason for Call: Angélica advised that she just got out of the hospital, and she needs her Baclofen script sent in to her [facility] [address] [place] [address], [place] - [address] [[id number]]. She does not use the [facility] any longer, and she is completely out. Best time of day caller can be reached: any Patient advised that office/PCP has 24-48 business hours to return their call: Yes [facility] Anion gap in Serum or Plasma Ordered By: Roman Mckeon on 04-22-2025 Anion gap [Moles/Vol] 12 mmol/L 5-15 [facility] BUN/creatinine ratioOrdered By: Roman Mckeon on 04-22-2025 Urea nitrogen/Creatinine [Mass ratio] 7.0 mg/mg Low 10-20 [facility] Basic Metabolic Profile (BMP )on 04-22-2025 BUN/CRE 7.0 RATIO Low - [facility] Comment on above: Performed By: #### L 500.2500, L100.0500 ####[facility] [address] [place], [address] Calcium [Mass/Vol] 8.3 mg/dL Normal 7.6-11.0 [facility] Comment on above: Performed By: #### L 500.2500, L100.0500 ####[facility] [address] [place], [address] Chloride [Moles/Vol] 107 mmol/L Normal 98-108 [facility] Comment on above: Performed By: #### L 500.2500, L100.0500 ####[facility] [address] [place], [address] CO2 [Moles/Vol] 18.8 mmol/L Low 21.0-32.0 [facility] Comment on above: Performed By: #### L 500.2500, L100.0500 ####[facility] [address] [place], [address] Creatinine [Mass/Vol] 1.08 mg/dL Normal 0.70-1.20 [facility] Comment on above: Performed By: #### L 500.2500, L100.0500 ####[facility] [address] [place], [address] ECRCL 34.97 ml/min Low 50-250 [facility] Comment on above: Performed By: #### L 500.2500, L100.0500 ####[facility] [address] [place], [address] GAP 12 Normal 5-15 [facility] Comment on above: Performed By: #### L 500.2500, L100.0500 ####[facility] [address] [place], [address] GFR/1.73 sq M.predicted among non-blacks MDRD (S/P/Bld) [Vol rate/Area] 55 mL/min/{1.73_m2} Low >60 [facility] Comment on above: Result Comment: mL/m in/1.73m2 CKD-EPI Creatinine Equation (2020) Performed By: #### L 500.2500, L100.0500 ####[facility] [address] [place], [address] Glucose [Mass/Vol] 89 mg/dL Normal 70-99 [facility] Comment on above: Performed By: #### L 500.2500, L100.0500 ####[facility] [address] [place], [address] Potassium [Moles/Vol] 3.8 mmol/L Normal 3.3-5.1 [facility] Comment on above: Performed By: #### L 500.2500, L100.0500 ####[facility] [address] [place], [address] Sodium [Moles/Vol] 137 mmol/L Normal 133-145 [facility] Comment on above: Performed By: #### L 500.2500, L100.0500 ####[facility] [address] [place], [address] Urea nitrogen [Mass/Vol] 8 mg/dL Normal 4-19 [facility] Comment on above: Performed By: #### L 500.2500, L100.0500 ####[facility] [address] [place], [address] CBC-Complete Blood Cnt No Di ffon 04-22-2025 Erythrocyte distribution width (RBC) [Ratio] 17.5 % High 11.6-14.6 [facility] Comment on above: Performed By: #### L 500.2500, L100.0500 ####[facility] [address] [place], [address] Hematocrit (Bld) [Volume fraction] 29.2 % Low 37-47 [facility] Comment on above: Performed By: #### L 500.2500, L100.0500 ####[facility] [address] [place], [address] Hemoglobin (Bld) [Mass/Vol] 9.4 g/dL Low 12.0-15.0 [facility] Comment on above: Performed By: #### L 500.2500, L100.0500 ####[facility] [address] [place], [address] MCH (RBC) [Entitic mass] 26.8 pg Low 27.0-32.0 [facility] Comment on above: Performed By: #### L 500.2500, L100.0500 ####[facility] [address] [place], [address] MCHC (RBC) [Mass/Vol] 32.2 g/dL Normal 32-36 [facility] Comment on above: Performed By: #### L 500.2500, L100.0500 ####[facility] [address] [place], [address] MCV (RBC) [Entitic vol] 83.2 fL Normal 81-99 [facility] Comment on above: Performed By: #### L 500.2500, L100.0500 ####[facility] [address] [place], [address] Platelet mean volume (Bld) [Entitic vol] 9.7 fL Normal 6.2-12.0 [facility] Comment on above: Performed By: #### L 500.2500, L100.0500 ####[facility] [address] [place], [address] Platelets (Bld) [#/Vol] 152 10*3/uL Normal 150-450 [facility] Comment on above: Performed By: #### L 500.2500, L100.0500 ####[facility] [address] [place], [address] RBC (Bld) [#/Vol] 3.51 10*6/uL Low 4.2-5.4 [facility] Comment on above: Performed By: #### L 500.2500, L100.0500 ####[facility] [address] [place], [address] RDW SD 52.6 fl High 35.1-43.9 [facility] Comment on above: Performed By: #### L 500.2500, L100.0500 ####[facility] [address] [place], [address] WBC (Bld) [#/Vol] 7.1 10*3/uL Normal 4.4-11.0 [facility] Comment on above: Performed By: #### L 500.2500, L100.0500 ####[facility] [address] [place], [address] Carbon dioxide, total [Moles /volume] in Central venous bloodOrdered By: Roman Mckeon on 04-22-2025 CO2 [Moles/Vol] 18.8 mmol/L Low 21.0-32.0 [facility] Chloride assayOrdered By: Edgar Mckeon on 04-22-2025 Chloride [Moles/Vol] 107 mmol/L 98-108 [facility] Colonoscopy Reporton 025 Colonoscopy Report Normal [facility] Erythrocyte distribution wid th ratioOrdered By: Roman Mckeon on 04-22-2025 Erythrocyte distribution width (RBC) [Ratio] 17.5 % High 11.6-14.6 [facility] Erythrocyte distribution wid th standard deviationOrdered By: Roman Mckeon on 04-22-2025 Erythrocyte distribution width (RBC) [Ratio] 52.6 fl High 35.1-43.9 [facility] Glomerular filtration rate ( GFR) estimation/1.73 sq m using serum, plasma, or whole bOrdered By: Roman Mckeon on 04-22-2025 GFR/1.73 sq M.predicted among non-blacks MDRD (S/P/Bld) [Vol rate/Area] 55 mL/min/{1.73_m2} Low >60 [facility] Hematocrit Auto (Bld) [Volum e fraction]Ordered By: Roman Mckeon on 04-22-2025 Hematocrit (Bld) [Volume fraction] 29.2 % Low 37-47 [facility] Hemoglobin measurementOrdere d By: Roman Mckeon on 04-22-2025 Hemoglobin (Bld) [Mass/Vol] 9.4 g/dL Low 12.0-15.0 [facility] MCV (mean corpuscular volume ) determinationOrdered By: Roman Mckeon on 04-22-2025 MCV (RBC) [Entitic vol] 83.2 fL 81-99 [facility] MR/POSTOP.ANEon 04-22-2025 MR/POSTOP.ANE Normal [facility] Mean corpuscular hemoglobin (MCH) determinationOrdered By: Roman Mckeon on 04-22-2025 MCH (RBC) [Entitic mass] 26.8 pg Low 27.0-32.0 [facility] Platelet countOrdered By: Edgar Mckeon on 04-22-2025 Platelets (Bld) [#/Vol] 152 10*3/uL 150-450 [facility] Potassium measurement (mass/ volume)Ordered By: Roman Mckeon on 04-22-2025 Potassium (Unsp spec) [Mass/Vol] 3.8 mmol/L 3.3-5.1 [facility] RBC Auto (Bld) [#/Vol]Ordere d By: Roman Mckeon on 04-22-2025 RBC (Bld) [#/Vol] 3.51 10*6/uL Low 4.2-5.4 [facility] Serum creatinine measurement (mass/volume)Ordered By: Roman Mckeon on 04-22-2025 Creatinine [Mass/Vol] 1.08 mg/dL 0.70-1.20 [facility] Serum glucose measurement (m ass/volume)Ordered By: Roman Mckeon on 04-22-2025 Glucose [Mass/Vol] 89 mg/dL 70-99 [facility] Serum or plasma calcium stefania urement (mass/volume)Ordered By: Roman Mckeon on 04-22-2025 Calcium [Mass/Vol] 8.3 mg/dL 7.6-11.0 [facility] Serum or plasma urea nitroge n measurement (mass/volume)Ordered By: Roman Mckeon on 04-22-2025 Urea nitrogen [Mass/Vol] 8 mg/dL 4-19 [facility] Sodium levelOrdered By: Domingo Mckeon on 04-22-2025 Sodium [Moles/Vol] 137 mmol/L 133-145 [facility] Surgery Specimen Level Willi 04-22-2025 Surgery Specimen Level IV Normal [facility] Comment on above: Performed By: #### P SUIV ####[facility] [address] [place], [address] White blood cell (WBC) count Ordered By: Roman Mckeon on 04-22-2025 WBC (Bld) [#/Vol] 7.1 10*3/uL 4.4-11.0 [facility] Basic Metabolic Profile (BMP )on 04-21-2025 BUN/CRE 9.9 RATIO Low 10-20 [facility] Comment on above: Performed By: #### L 100.0500, L500.2500 ####[facility] [address] [place], [address] Calcium [Mass/Vol] 8.7 mg/dL Normal 7.6-11.0 [facility] Comment on above: Performed By: #### L 100.0500, L500.2500 ####[facility] [address] [place], [address] Chloride [Moles/Vol] 107 mmol/L Normal 98-108 [facility] Comment on above: Performed By: #### L 100.0500, L500.2500 ####[facility] [address] [place], [address] CO2 [Moles/Vol] 24.7 mmol/L Normal 21.0-32.0 [facility] Comment on above: Performed By: #### L 100.0500, L500.2500 ####[facility] [address] [place], [address] Creatinine [Mass/Vol] 1.21 mg/dL High 0.70-1.20 [facility] Comment on above: Performed By: #### L 100.0500, L500.2500 ####[facility] [address] [place], [address] ECRCL 31.21 ml/min Low 50-250 [facility] Comment on above: Performed By: #### L 100.0500, L500.2500 ####[facility] [address] [place], [address] GAP 9 Normal 5-15 [facility] Comment on above: Performed By: #### L 100.0500, L500.2500 ####[facility] [address] [place], [address] GFR/1.73 sq M.predicted among non-blacks MDRD (S/P/Bld) [Vol rate/Area] 48 mL/min/{1.73_m2} Low >60 [facility] Comment on above: Result Comment: mL/m in/1.73m2 CKD-EPI Creatinine Equation (2020) Performed By: #### L 100.0500, L500.2500 ####[facility] [address] [place], [address] Glucose [Mass/Vol] 85 mg/dL Normal 70-99 [facility] Comment on above: Performed By: #### L 100.0500, L500.2500 ####[facility] [address] [place], [address] Potassium [Moles/Vol] 3.1 mmol/L Low 3.3-5.1 [facility] Comment on above: Performed By: #### L 100.0500, L500.2500 ####[facility] [address] [place], [address] Sodium [Moles/Vol] 141 mmol/L Normal 133-145 [facility] Comment on above: Performed By: #### L 100.0500, L500.2500 ####[facility] [address], [address] Urea nitrogen [Mass/Vol] 12 mg/dL Normal 4-19 [facility] Comment on above: Performed By: #### L 100.0500, L500.2500 ####[facility] [address] [place], [address] Bedside Glucoseon 04-21-2025 FINGERSTICK GLU 109 mg/dL High 74-106 [facility] Comment on above: Result Comment: YONY HARTMANN OF PATIENT CARE PER NURSING PROTOCOL Performed By: #### L 501.080 ####[facility] [address] [place], [address] Brain/Head without Contrasto n 04-21-2025 Brain/Head without Contrast Normal [facility] CBC-Complete Blood Cnt No Di ffon 04-21-2025 Erythrocyte distribution width (RBC) [Ratio] 17.2 % High 11.6-14.6 [facility] Comment on above: Performed By: #### L 100.0500, L500.2500 ####[facility] [id number] [place], [address] Hematocrit (Bld) [Volume fraction] 31.7 % Low 37-47 [facility] Comment on above: Performed By: #### L 100.0500, L500.2500 ####[facility] [id number] [place], [address] Hemoglobin (Bld) [Mass/Vol] 10.1 g/dL Low 12.0-15.0 [facility] Comment on above: Performed By: #### L 100.0500, L500.2500 ####[facility] [id number] [place], [address] MCH (RBC) [Entitic mass] 26.5 pg Low 27.0-32.0 [facility] Comment on above: Performed By: #### L 100.0500, L500.2500 ####[facility] [address] [place], [address] MCHC (RBC) [Mass/Vol] 31.9 g/dL Low 32-36 [facility] Comment on above: Performed By: #### L 100.0500, L500.2500 ####[facility] [address] [place], [address] MCV (RBC) [Entitic vol] 83.2 fL Normal 81-99 [facility] Comment on above: Performed By: #### L 100.0500, L500.2500 ####[facility] [address] [place], [address] Platelet mean volume (Bld) [Entitic vol] 9.4 fL Normal 6.2-12.0 [facility] Comment on above: Performed By: #### L 100.0500, L500.2500 ####[facility] [address] [place], [address] Platelets (Bld) [#/Vol] 174 10*3/uL Normal 150-450 [facility] Comment on above: Performed By: #### L 100.0500, L500.2500 ####[facility] [address] [place], [address] RBC (Bld) [#/Vol] 3.81 10*6/uL Low 4.2-5.4 [facility] Comment on above: Performed By: #### L 100.0500, L500.2500 ####[facility] [address] [place], [address] RDW SD 51.9 fl High 35.1-43.9 [facility] Comment on above: Performed By: #### L 100.0500, L500.2500 ####[facility] [address] [place], [address] WBC (Bld) [#/Vol] 5.3 10*3/uL Normal 4.4-11.0 [facility] Comment on above: Performed By: #### L 100.0500, L500.2500 ####[facility] [address] [place], [address] EGD Reporton 04-21-2025 EGD Report Normal [facility] Gl[facility] deOrdered By: Roman Mckeon on 04-21-2025 Glucose [Mass/Vol] 109 mg/dL High 74-106 [facility] MR/POSTOP.ANEon 04-21-2025 MR/POSTOP.ANE Normal [facility] MR/[id number] 04-21-2025 MR/POSTOPAN2 Normal [facility] Stool Occult Blood iFOBon STOB Positive Normal [facility] Comment on above: Performed By: #### M 100.7900 ####[facility] [address] [place], [address] Stool gastrointestinal hemog lobin detection by immunologic methodOrdered By: Sachin Murlilo on 04-21-2025 Lower GI hemoglobin IA Ql (Stl) Positive Abnormal [facility] Basic Metabolic Profile (BMP )on 04-20-2025 BUN/CRE 13.9 RATIO Normal 10-20 [facility] Comment on above: Performed By: #### L 500.2500, L501.5200, L501.2300, L501.9520, L100.0500 ####[facility] [address] [place], [address] Calcium [Mass/Vol] 8.8 mg/dL Normal 7.6-11.0 [facility] Comment on above: Performed By: #### L 500.2500, L501.5200, L501.2300, L501.9520, L100.0500 ####[facility] [address] [place], [address] Chloride [Moles/Vol] 106 mmol/L Normal 98-108 [facility] Comment on above: Performed By: #### L 500.2500, L501.5200, L501.2300, L501.9520, L100.0500 ####[facility] [address] [place], [address] CO2 [Moles/Vol] 22.5 mmol/L Normal 21.0-32.0 [facility] Comment on above: Performed By: #### L 500.2500, L501.5200, L501.2300, L501.9520, L100.0500 ####[facility] [address] [place], [address] Creatinine [Mass/Vol] 1.23 mg/dL High 0.70-1.20 [facility] Comment on above: Performed By: #### L 500.2500, L501.5200, L501.2300, L501.9520, L100.0500 ####[facility] [address] [place], [address] ECRCL 30.70 ml/min Low 50-250 [facility] Comment on above: Performed By: #### L 500.2500, L501.5200, L501.2300, L501.9520, L100.0500 ####[facility] [address] [place], [address] GAP 12 Normal 5-15 [facility] Comment on above: Performed By: #### L 500.2500, L501.5200, L501.2300, L501.9520, L100.0500 ####[facility] [address] [place], [address] GFR/1.73 sq M.predicted among non-blacks MDRD (S/P/Bld) [Vol rate/Area] 47 mL/min/{1.73_m2} Low >60 [facility] Comment on above: Result Comment: mL/m in/1.73m2 CKD-EPI Creatinine Equation (2020) Performed By: #### L 500.2500, L501.5200, L501.2300, L501.9520, L100.0500 ####[facility] [address] [place], [address] Glucose [Mass/Vol] 75 mg/dL Normal 70-99 [facility] Comment on above: Performed By: #### L 500.2500, L501.5200, L501.2300, L501.9520, L100.0500 ####[facility] [address] [place], [address] Potassium [Moles/Vol] 3.4 mmol/L Normal 3.3-5.1 [facility] Comment on above: Performed By: #### L 500.2500, L501.5200, L501.2300, L501.9520, L100.0500 ####[facility] [address] [place], [address] Sodium [Moles/Vol] 140 mmol/L Normal 133-145 [facility] Comment on above: Performed By: #### L 500.2500, L501.5200, L501.2300, L501.9520, L100.0500 ####[facility] [address] [place], [address] Urea nitrogen [Mass/Vol] 17 mg/dL Normal 4-19 [facility] Comment on above: Performed By: #### L 500.2500, L501.5200, L501.2300, L501.9520, L100.0500 ####[facility] [address] [place], [address] CBC-Complete Blood Cnt No Di ffon 04-20-2025 Erythrocyte distribution width (RBC) [Ratio] 16.9 % High 11.6-14.6 [facility] Comment on above: Performed By: #### L 500.2500, L501.5200, L501.2300, L501.9520, L100.0500 ####[facility] [address] [place], [address] Hematocrit (Bld) [Volume fraction] 33.7 % Low 37-47 [facility] Comment on above: Performed By: #### L 500.2500, L501.5200, L501.2300, L501.9520, L100.0500 ####[facility] [address] [place], [address] Hemoglobin (Bld) [Mass/Vol] 10.6 g/dL Low 12.0-15.0 [facility] Comment on above: Performed By: #### L 500.2500, L501.5200, L501.2300, L501.9520, L100.0500 ####[facility] [address] [place], [address] MCH (RBC) [Entitic mass] 26.6 pg Low 27.0-32.0 [facility] Comment on above: Performed By: #### L 500.2500, L501.5200, L501.2300, L501.9520, L100.0500 ####[facility] [address] [place], [address] MCHC (RBC) [Mass/Vol] 31.5 g/dL Low 32-36 [facility] Comment on above: Performed By: #### L 500.2500, L501.5200, L501.2300, L501.9520, L100.0500 ####[facility] [address] [place], [address] MCV (RBC) [Entitic vol] 84.5 fL Normal 81-99 [facility] Comment on above: Performed By: #### L 500.2500, L501.5200, L501.2300, L501.9520, L100.0500 ####[facility] [address] [place], [address] Platelet mean volume (Bld) [Entitic vol] 9.9 fL Normal 6.2-12.0 [facility] Comment on above: Performed By: #### L 500.2500, L501.5200, L501.2300, L501.9520, L100.0500 ####[facility] [address] [place], [address] Platelets (Bld) [#/Vol] 146 10*3/uL Low 150-450 [facility] Comment on above: Performed By: #### L 500.2500, L501.5200, L501.2300, L501.9520, L100.0500 ####[facility] [address] [place], [address] RBC (Bld) [#/Vol] 3.99 10*6/uL Low 4.2-5.4 [facility] Comment on above: Performed By: #### L 500.2500, L501.5200, L501.2300, L501.9520, L100.0500 ####[facility] [address] [place], [address] RDW SD 52.5 fl High 35.1-43.9 [facility] Comment on above: Performed By: #### L 500.2500, L501.5200, L501.2300, L501.9520, L100.0500 ####[facility] [address] [place], [address] WBC (Bld) [#/Vol] 5.0 10*3/uL Normal 4.4-11.0 [facility] Comment on above: Performed By: #### L 500.2500, L501.5200, L501.2300, L501.9520, L100.0500 ####[facility] [address] [place], [place], [address] EGD Reporton 04-20-2025 EGD Report Normal [facility] Electrocardiogram reportOrde red By: Bhavik Smiley on 04-20-2025 EKG study [facility] Work Phone: MR/POSTOP.ANEon 04-20-2025 MR/POSTOP.ANE Normal [facility] MR/[id number] 04-20-2025 MR/POSTOPAN2 Normal [facility] Magnesiumon 04-20-2025 Magnesium [Mass/Vol] 2.2 mg/dL Normal 1.5-2.2 [facility] Comment on above: Performed By: #### L 500.2500, L501.5200, L501.2300, L501.9520, L100.0500 ####[facility] [address] [place], [place], [address] Magnesium measurement (mass/ volume)Ordered By: Roman Mckeon on 04-20-2025 Magnesium (Unsp spec) [Mass/Vol] 2.2 mg/dL 1.5-2.2 [facility] Phosphoruson 04-20-2025 Phosphate [Mass/Vol] 3.5 mg/dL Normal 2.7-4.5 [facility] Comment on above: Performed By: #### L 500.2500, L501.5200, L501.2300, L501.9520, L100.0500 ####[facility] [address] [place], [address] TSH DL <= 0.005 mIU/L QnOrde red By: Storm Gómez on 04-20-2025 TSH Qn 5.620 uIU/mL High 0.300-4.20 0 [facility] Thyroid Stim Hormone (TSH)on 04-20-2025 TSH 5.620 uIU/mL High 0.300-4.20 0 [facility] Comment on above: Performed By: #### L 500.2500, L501.5200, L501.2300, L501.9520, L100.0500 ####[facility] [address] [place], [address] Absolute lymphocyte countOrd ered By: Sachin Murillo on 04-19-2025 Lymphocytes Auto (Unsp spec) [#/Vol] 0.78 10*3/uL Low 0.83-4.51 [facility] Automated lymphocyte count a s percentage of total leukocytesOrdered By: Sachni Murillo on 04-19-2025 Lymphocytes/100 WBC Auto (Unsp spec) 11.1 % Low 19-41 [facility] Basic Metabolic Profile (BMP )on 04-19-2025 BUN/CRE 16.8 RATIO Normal 10-20 [facility] Comment on above: Performed By: #### L 100.0100, L500.2500 ####[facility] [address] [place], [address] Calcium [Mass/Vol] 8.1 mg/dL Normal 7.6-11.0 [facility] Comment on above: Performed By: #### L 100.0100, L500.2500 ####[facility] [address] [place], [address] Chloride [Moles/Vol] 106 mmol/L Normal 98-108 [facility] Comment on above: Performed By: #### L 100.0100, L500.2500 ####[facility] [address] [place], [address] CO2 [Moles/Vol] 22.1 mmol/L Normal 21.0-32.0 [facility] Comment on above: Performed By: #### L 100.0100, L500.2500 ####[facility] [address] [place], [address] Creatinine [Mass/Vol] 1.17 mg/dL Normal 0.70-1.20 [facility] Comment on above: Performed By: #### L 100.0100, L500.2500 ####[facility] [address] [place], [address] ECRCL 32.28 ml/min Low 50-250 [facility] Comment on above: Performed By: #### L 100.0100, L500.2500 ####[facility] [address] [place], [address] GAP 10 Normal 5-15 [facility] Comment on above: Performed By: #### L 100.0100, L500.2500 ####[facility] [address] [place], [address] GFR/1.73 sq M.predicted among non-blacks MDRD (S/P/Bld) [Vol rate/Area] 50 mL/min/{1.73_m2} Low >60 [facility] Comment on above: Result Comment: mL/m in/1.73m2 CKD-EPI Creatinine Equation (2020) Performed By: #### L 100.0100, L500.2500 ####[facility] [address] [place], [address] Glucose [Mass/Vol] 111 mg/dL High 70-99 [facility] Comment on above: Performed By: #### L 100.0100, L500.2500 ####[facility] [address] [place], [address] Potassium [Moles/Vol] 3.6 mmol/L Normal 3.3-5.1 [facility] Comment on above: Performed By: #### L 100.0100, L500.2500 ####[facility] [address] [place], [address] Sodium [Moles/Vol] 137 mmol/L Normal 133-145 [facility] Comment on above: Performed By: #### L 100.0100, L500.2500 ####[facility] [address] [place], [address] Urea nitrogen [Mass/Vol] 20 mg/dL High 4-19 [facility] Comment on above: Performed By: #### L 100.0100, L500.2500 ####[facility] [address] [place], [address] Basophil percentageOrdered B y: Sachin Murillo on 04-19-2025 Basophils/100 WBC (Bld) 0.4 % 0-1 [facility] CBC W/Diff, Automatedon -2024 Absolute Lymph 0.78 X10 3/uL Low 0.83-4.51 [facility] Comment on above: Performed By: #### L 100.0100, L500.2500 ####[facility] [address] [place], [address] Absolute Neut 5.2 X10 3/uL Normal 2.0-7.7 [facility] Comment on above: Performed By: #### L 100.0100, L500.2500 ####[facility] [address] [place], [address] Basophils/100 WBC (Bld) 0.4 % Normal 0-1 [facility] Comment on above: Performed By: #### L 100.0100, L500.2500 ####[facility] [address] [place], [address] Eosinophils/100 WBC (Bld) 1.9 % Normal 0-5 [facility] Comment on above: Performed By: #### L 100.0100, L500.2500 ####[facility] [address] [place], [address] Erythrocyte distribution width (RBC) [Ratio] 17.0 % High 11.6-14.6 [facility] Comment on above: Performed By: #### L 100.0100, L500.2500 ####[facility] [address] [place], [address] Hematocrit (Bld) [Volume fraction] 29.4 % Low 37-47 [facility] Comment on above: Performed By: #### L 100.0100, L500.2500 ####[facility] [address] [place], [address] Hemoglobin (Bld) [Mass/Vol] 9.5 g/dL Low 12.0-15.0 [facility] Comment on above: Performed By: #### L 100.0100, L500.2500 ####[facility] [address] [place], [address] IG% 0.400 Normal 0.0-0.9 [facility] Comment on above: Result Comment: IG% - Immature Granulocytes (promyelocytes, myelocytes andmetamyelocytes) > 1% indicates that a LEFT SHIFT is Present. Performed By: #### L 100.0100, L500.2500 ####[facility] [address] [place], [address] Lymphocytes/100 WBC (Bld) 11.1 % Low 19-41 [facility] Comment on above: Performed By: #### L 100.0100, L500.2500 ####[facility] [address] [place], [address] MCH (RBC) [Entitic mass] 27.1 pg Normal 27.0-32.0 [facility] Comment on above: Performed By: #### L 100.0100, L500.2500 ####[facility] [address] [place], [address] MCHC (RBC) [Mass/Vol] 32.3 g/dL Normal 32-36 [facility] Comment on above: Performed By: #### L 100.0100, L500.2500 ####[facility] [address] [place], [address] MCV (RBC) [Entitic vol] 84.0 fL Normal 81-99 [facility] Comment on above: Performed By: #### L 100.0100, L500.2500 ####[facility] [address] [place], [address] Monocytes/100 WBC (Bld) 11.3 % High 0-10 [facility] Comment on above: Performed By: #### L 100.0100, L500.2500 ####[facility] [address] [place], [address] Neutrophils/100 WBC (Bld) 74.9 % High 47-70 [facility] Comment on above: Performed By: #### L 100.0100, L500.2500 ####[facility] [address] [place], [address] Nucleated RBC (Bld) [#/Vol] 0.3 10*3/uL Normal 0-5 [facility] Comment on above: Performed By: #### L 100.0100, L500.2500 ####[facility] [address] [place], [address] Platelet mean volume (Bld) [Entitic vol] 9.8 fL Normal 6.2-12.0 [facility] Comment on above: Performed By: #### L 100.0100, L500.2500 ####[facility] [address] [place], [address] Platelets (Bld) [#/Vol] 133 10*3/uL Low 150-450 [facility] Comment on above: Performed By: #### L 100.0100, L500.2500 ####[facility] [address] [place], [address] RBC (Bld) [#/Vol] 3.50 10*6/uL Low 4.2-5.4 [facility] Comment on above: Performed By: #### L 100.0100, L500.2500 ####[facility] [address] [place], [address] RDW SD 51.9 fl High 35.1-43.9 [facility] Comment on above: Performed By: #### L 100.0100, L500.2500 ####[facility] [address] [place], [address] WBC (Bld) [#/Vol] 7.0 10*3/uL Normal 4.4-11.0 [facility] Comment on above: Performed By: #### L 100.0100, L500.2500 ####[facility] [address] [place], [address] Eosinophil percentageOrdered By: Sachin Murillo on 04-19-2025 Eosinophils/100 WBC (Bld) 1.9 % 0-5 [facility] HH, Hemoglobin AND Hematocr iton 04-19-2025 HCT Normal 37-47 [facility] Comment on above: Result Comment: CBC BEING DONE H H IS IN CBC Performed By: #### L 100.0600 ####[facility] [address] [place], [address] HGB Normal 12.0-15.0 [facility] Comment on above: Result Comment: CBC BEING DONE H H IS IN CBC Performed By: #### L 100.0600 ####[facility] [address] [place], [address] Hematocrit (Bld) [Volume fraction] 20.6 % Low 37-47 [facility] Comment on above: Performed By: #### L 100.0600 ####[facility] [address] [place], [address] Hemoglobin (Bld) [Mass/Vol] 6.3 g/dL Low 12.0-15.0 [facility] Comment on above: Performed By: #### L 100.0600 ####[facility] [address] [place], [address] Immature granulocytes/100 WB C Auto (Bld)Ordered By: Sachin Lidia on 04-19-2025 Immature granulocytes/100 WBC (Bld) 0.400 % 0.0-0.9 [facility] L499.0043on 04-19-2025 Trop T High Sen 24 ng/L High <=14 [facility] Comment on above: Performed By: #### L 499.0043 ####[facility] [address] [place], [address] Lactic Acidon 04-19-2025 Lactate [Moles/Vol] mmol/L Normal 0.0-2.0 [facility] Comment on above: Performed By: #### L 503.6005 ####[facility] [address] [place], [place], [address] Monocyte percentageOrdered B y: Sachin Murillo on 04-19-2025 Monocytes/100 WBC (Bld) 11.3 % High 0-10 [facility] Neutrophil percentageOrdered By: Sachin Murillo on 04-19-2025 Neutrophils/100 WBC (Bld) 74.9 % High 47-70 [facility] 12 Lead EKGon 04-18-2025 12 Lead EKG Normal [facility] Absolute lymphocyte countOrd ered By: Jeffy Willoughby on 04-18-2025 Lymphocytes Auto (Unsp spec) [#/Vol] 0.83 10*3/uL 0.83-4.51 [facility] Absolute neutrophil countOrd ered By: Jeffy Willoughby on 04-18-2025 Neutrophils (Bld) [#/Vol] 7.0 10*3/uL 2.0-7.7 [facility] Anion gap in Serum or Plasma Ordered By: Jeffy Willoughby on 04-18-2025 Anion gap [Moles/Vol] 15 mmol/L 5-15 [facility] Automated lymphocyte count a s percentage of total leukocytesOrdered By: Jeffy Willoughby on 04-18-2025 Lymphocytes/100 WBC Auto (Unsp spec) 9.5 % Low 19-41 [facility] BRCon 04-18-2025 RC Normal [facility] Comment on above: Result Comment: [id number] OP RC TRANSFUSED 04/19/25 [id number] OP RC TRANSFUSED 04/19/25 0801 Performed By: #### B RC ####[facility] [address] [place], [address] BUN/creatinine ratioOrdered By: Jeffy Willoughby on 04-18-2025 Urea nitrogen/Creatinine [Mass ratio] 18.9 mg/mg 10-20 [facility] Basophil percentageOrdered B y: Jeffy Willoughby on 04-18-2025 Basophils/100 WBC (Bld) 0.6 % 0-1 [facility] Bedside Glucoseon 04-18-2025 FINGERSTICK GLU 121 mg/dL High 74-106 [facility] Comment on above: Result Comment: YONY HARTMANN OF PATIENT CARE PER NURSING PROTOCOL Performed By: #### L 501.080 ####[facility] [address] [place], [address] Bilirubin, totalOrdered By: Jeffy Willoughby on 04-18-2025 Bilirubin [Mass/Vol] 0.35 mg/dL 0.00-1.30 [facility] CBC W/Diff, Automatedon 03-21 Absolute Lymph 0.83 X10 3/uL Normal 0.83-4.51 [facility] Comment on above: Performed By: #### L 100.0100, L501.2450, L500.4050, L503.6005, BTS ####[facility] [address] [place], [address] Absolute Neut 7.0 X10 3/uL Normal 2.0-7.7 [facility] Comment on above: Performed By: #### L 100.0100, L501.2450, L500.4050, L503.6005, BTS ####[facility] [address] [place], [address] Basophils/100 WBC (Bld) 0.6 % Normal 0-1 [facility] Comment on above: Performed By: #### L 100.0100, L501.2450, L500.4050, L503.6005, BTS ####[facility] [address] [place], [address] Eosinophils/100 WBC (Bld) 0.5 % Normal 0-5 [facility] Comment on above: Performed By: #### L 100.0100, L501.2450, L500.4050, L503.6005, BTS ####[facility] [address] [place], [address] Erythrocyte distribution width (RBC) [Ratio] 17.3 % High 11.6-14.6 [facility] Comment on above: Performed By: #### L 100.0100, L501.2450, L500.4050, L503.6005, BTS ####[facility] [address] [place], [address] Hematocrit (Bld) [Volume fraction] 23.5 % Low 37-47 [facility] Comment on above: Performed By: #### L 100.0100, L501.2450, L500.4050, L503.6005, BTS ####[facility] [address] [place], [address] Hemoglobin (Bld) [Mass/Vol] 7.3 g/dL Low 12.0-15.0 [facility] Comment on above: Performed By: #### L 100.0100, L501.2450, L500.4050, L503.6005, BTS ####[facility] [address] [place], [address] IG% 0.500 Normal 0.0-0.9 [facility] Comment on above: Result Comment: IG% - Immature Granulocytes (promyelocytes, myelocytes andmetamyelocytes) > 1% indicates that a LEFT SHIFT is Present. Performed By: #### L 100.0100, L501.2450, L500.4050, L503.6005, BTS ####[facility] [address] [place], [address] Lymphocytes/100 WBC (Bld) 9.5 % Low 19-41 [facility] Comment on above: Performed By: #### L 100.0100, L501.2450, L500.4050, L503.6005, BTS ####[facility] [address] [place], [address] MCH (RBC) [Entitic mass] 24.6 pg Low 27.0-32.0 [facility] Comment on above: Performed By: #### L 100.0100, L501.2450, L500.4050, L503.6005, BTS ####[facility] [address] [place], [address] MCHC (RBC) [Mass/Vol] 31.1 g/dL Low 32-36 [facility] Comment on above: Performed By: #### L 100.0100, L501.2450, L500.4050, L503.6005, BTS ####[facility] [address] [place], [address] MCV (RBC) [Entitic vol] 79.1 fL Low 81-99 [facility] Comment on above: Performed By: #### L 100.0100, L501.2450, L500.4050, L503.6005, BTS ####[facility] [address] [place], [address] Monocytes/100 WBC (Bld) 9.4 % Normal 0-10 [facility] Comment on above: Performed By: #### L 100.0100, L501.2450, L500.4050, L503.6005, BTS ####[facility] [address] [place], [address] Neutrophils/100 WBC (Bld) 79.5 % High 47-70 [facility] Comment on above: Performed By: #### L 100.0100, L501.2450, L500.4050, L503.6005, BTS ####[facility] [address] [place], [address] Nucleated RBC (Bld) [#/Vol] 0.2 10*3/uL Normal 0-5 [facility] Comment on above: Performed By: #### L 100.0100, L501.2450, L500.4050, L503.6005, BTS ####[facility] [address] [place], [address] Platelet mean volume (Bld) [Entitic vol] 9.6 fL Normal 6.2-12.0 [facility] Comment on above: Performed By: #### L 100.0100, L501.2450, L500.4050, L503.6005, BTS ####[facility] [address] [place], [address] Platelets (Bld) [#/Vol] 195 10*3/uL Normal 150-450 [facility] Comment on above: Performed By: #### L 100.0100, L501.2450, L500.4050, L503.6005, BTS ####[facility] [address] [place], [address] RBC (Bld) [#/Vol] 2.97 10*6/uL Low 4.2-5.4 [facility] Comment on above: Performed By: #### L 100.0100, L501.2450, L500.4050, L503.6005, BTS ####[facility] [address] [place], [address] RDW SD 50.4 fl High 35.1-43.9 [facility] Comment on above: Performed By: #### L 100.0100, L501.2450, L500.4050, L503.6005, BTS ####[facility] [address] [place], [address] WBC (Bld) [#/Vol] 8.7 10*3/uL Normal 4.4-11.0 [facility] Comment on above: Performed By: #### L 100.0100, L501.2450, L500.4050, L503.6005, BTS ####[facility] [address] [place], [address] Carbon dioxide, total [Moles /volume] in Central venous bloodOrdered By: Jeffy Willoughby on 04-18-2025 CO2 [Moles/Vol] 21.0 mmol/L 21.0-32.0 [facility] Chloride assayOrdered By: Ug o Willoughby on 04-18-2025 Chloride [Moles/Vol] 97 mmol/L Low 98-108 [facility] Comprehensive Metabolic Prof ilon 04-18-2025 Albumin [Mass/Vol] 4.1 g/dL Normal 3.4-4.8 [facility] Comment on above: Performed By: #### L 100.0100, L501.2450, L500.4050, L503.6005, BTS ####[facility] [address] [place], [address] Albumin/Globulin [Mass ratio] 1.7 {ratio} Normal 0.9-2.4 [facility] Comment on above: Performed By: #### L 100.0100, L501.2450, L500.4050, L503.6005, BTS ####[facility] [address] [place], [address] ALK PHOS 88 U/L Normal 35-104 [facility] Comment on above: Performed By: #### L 100.0100, L501.2450, L500.4050, L503.6005, BTS ####[facility] [address] [place], [address] ALT [Catalytic activity/Vol] 8 U/L Normal <=34 [facility] Comment on above: Performed By: #### L 100.0100, L501.2450, L500.4050, L503.6005, BTS ####[facility] [address] [place], [address] AST [Catalytic activity/Vol] 16 U/L Normal <=31 [facility] Comment on above: Performed By: #### L 100.0100, L501.2450, L500.4050, L503.6005, BTS ####[facility] [address] [place], [address] Bilirubin [Mass/Vol] 0.35 mg/dL Normal 0.00-1.30 [facility] Comment on above: Performed By: #### L 100.0100, L501.2450, L500.4050, L503.6005, BTS ####[facility] [address] [place], [address] BUN/CRE 18.9 RATIO Normal 10-20 [facility] Comment on above: Performed By: #### L 100.0100, L501.2450, L500.4050, L503.6005, BTS ####[facility] [address] [place], [address] Calcium [Mass/Vol] 9.0 mg/dL Normal 7.6-11.0 [facility] Comment on above: Performed By: #### L 100.0100, L501.2450, L500.4050, L503.6005, BTS ####[facility] [address], [address] Chloride [Moles/Vol] 97 mmol/L Low 98-108 [facility] Comment on above: Performed By: #### L 100.0100, L501.2450, L500.4050, L503.6005, BTS ####[facility] [address] [place], [address] CO2 [Moles/Vol] 21.0 mmol/L Normal 21.0-32.0 [facility] Comment on above: Performed By: #### L 100.0100, L501.2450, L500.4050, L503.6005, BTS ####[facility] [address] [place], [address] Creatinine [Mass/Vol] 1.28 mg/dL High 0.70-1.20 [facility] Comment on above: Performed By: #### L 100.0100, L501.2450, L500.4050, L503.6005, BTS ####[facility] [address] [place], [address] ECRCL 29.72 ml/min Low 50-250 [facility] Comment on above: Performed By: #### L 100.0100, L501.2450, L500.4050, L503.6005, BTS ####[facility] [address] [place], [address] GAP 15 Normal 5-15 [facility] Comment on above: Performed By: #### L 100.0100, L501.2450, L500.4050, L503.6005, BTS ####[facility] [address] [place], [address] GFR/1.73 sq M.predicted among non-blacks MDRD (S/P/Bld) [Vol rate/Area] 45 mL/min/{1.73_m2} Low >60 [facility] Comment on above: Result Comment: mL/m in/1.73m2 CKD-EPI Creatinine Equation (2020) Performed By: #### L 100.0100, L501.2450, L500.4050, L503.6005, BTS ####[facility] [address] [place], [address] Globulin (S) [Mass/Vol] 2.4 g/dL Normal 2.2-4.2 [facility] Comment on above: Performed By: #### L 100.0100, L501.2450, L500.4050, L503.6005, BTS ####[facility] [address] [place], [address] Glucose [Mass/Vol] 135 mg/dL High 70-99 [facility] Comment on above: Performed By: #### L 100.0100, L501.2450, L500.4050, L503.6005, BTS ####[facility] [address] [place], [address] Potassium [Moles/Vol] 3.8 mmol/L Normal 3.3-5.1 [facility] Comment on above: Performed By: #### L 100.0100, L501.2450, L500.4050, L503.6005, BTS ####[facility] [address] [place], [address] Sodium [Moles/Vol] 133 mmol/L Normal 133-145 [facility] Comment on above: Performed By: #### L 100.0100, L501.2450, L500.4050, L503.6005, BTS ####[facility] [address] [place], [address] T PROT 6.4 g/dL Normal 5.9-8.4 [facility] Comment on above: Performed By: #### L 100.0100, L501.2450, L500.4050, L503.6005, BTS ####[facility] [address] [place], [address] Urea nitrogen [Mass/Vol] 24 mg/dL High 4-19 [facility] Comment on above: Performed By: #### L 100.0100, L501.2450, L500.4050, L503.6005, BTS ####[facility] [address] [place], [place], [id number] Emergency Department Summary on 04-18-2025 Emergency Department Summary Normal [facility] Eosinophil percentageOrdered By: Jeffyaura Willoughby on 04-18-2025 Eosinophils/100 WBC (Bld) 0.5 % 0-5 [facility] Erythrocyte distribution wid th ratioOrdered By: Jeffyaura Willoughby on 04-18-2025 Erythrocyte distribution width (RBC) [Ratio] 17.3 % High 11.6-14.6 [facility] Erythrocyte distribution wid th standard deviationOrdered By: Jeffyaura Willoughby on 04-18-2025 Erythrocyte distribution width (RBC) [Ratio] 50.4 fl High 35.1-43.9 [facility] Ferritinon 04-18-2025 Ferritin [Mass/Vol] 12 ng/mL Low 22-378 [facility] Comment on above: Performed By: #### L 503.6550, L503.6012 ####[facility] [address] [place], [place], [address] Glomerular filtration rate ( GFR) estimation/1.73 sq m using serum, plasma, or whole bOrdered By: Jeffy Willoughby on 04-18-2025 GFR/1.73 sq M.predicted among non-blacks MDRD (S/P/Bld) [Vol rate/Area] 45 mL/min/{1.73_m2} Low >60 [facility] Comment on above: mL/min/1.73m2 CKD-EP I Creatinine Equation (2020) Glucose measurement at bedsi deOrdered By: Jeffy Willoughby on 04-18-2025 Glucose [Mass/Vol] 121 mg/dL High 74-106 [facility] Comment on above: MANAGEMENT OF PATIEN T CARE PER NURSING PROTOCOL H AND P Exam - Hospitaliston 04-18-2025 H&P Exam - Hospitalist Normal [facility] Hematocrit Auto (Bld) [Volum e fraction]Ordered By: Jeffy Willoughby on 04-18-2025 Hematocrit (Bld) [Volume fraction] 23.5 % Low 37-47 [facility] Hemoglobin measurementOrdere d By: Jeffy Willoughby on 04-18-2025 Hemoglobin (Bld) [Mass/Vol] 7.3 g/dL Low 12.0-15.0 [facility] Immature granulocytes/100 WB C Auto (Bld)Ordered By: Jeffy Willoughby on 04-18-2025 Immature granulocytes/100 WBC (Bld) 0.500 % 0.0-0.9 [facility] Comment on above: IG% - Immature Granu locytes (promyelocytes, myelocytes and metamyelocytes) > 1% indicates that a LEFT SHIFT is Present. Iron measurement (mass/mass) Ordered By: Sachin Murillo on 04-18-2025 Iron (Unsp spec) [Mass/Mass] 16 ug/dL Low 50-170 [facility] Iron+Iron Binding Capacityon 04-18-2025 Iron [Mass/Vol] 16 ug/dL Low 50-170 [facility] Comment on above: Performed By: #### L 503.6550, L503.6030 ####[facility] [address] [place], [address] IRON SATURATION 4.0 Low 13-59 [facility] Comment on above: Performed By: #### L 503.6550, L503.6030 ####[facility] [address] [place], [address] TIBC 372 ug/dL Normal 250-450 [facility] Comment on above: Performed By: #### L 503.6550, L503.6030 ####[facility] [address] [place], [address] UIBC 356 ug/dL Normal 228-428 [facility] Comment on above: Performed By: #### L 503.6550, L503.6030 ####[facility] [address] [place], [place], [address] L499.0042on 04-18-2025 Trop T High Sen 24 ng/L High <=14 [facility] Comment on above: Performed By: #### L 499.0042 ####[facility] [address] [place], [place], [address] L501.4021on 04-18-2025 Trop T High Sen 30 ng/L High <=14 [facility] Comment on above: Performed By: #### L 501.4021 ####[facility] [address] [place], [place], [address] Laboratory - Chemistry and C hemistry - challengeOrdered By: Jeffy Willoughby on 04-18-2025 AST [Catalytic activity/Vol] 16 U/L <32 [facility] Lactic Acidon 04-18-2025 Lactate [Moles/Vol] 2.6 mmol/L Invalid Interpretation Code 0.0-2.0 [facility] Comment on above: Order Comment: Y Result Comment: Crit ical Result(s) Called LSPARR at: 1945 by:DIOGO??Results read back by same. Performed By: #### L 100.0100, L501.2450, L500.4050, L503.6005, BTS ####[facility] [address] [place], [place], [address] Lactic acid measurementOrder ed By: Jeffy Willoughby on 04-18-2025 Lactate [Moles/Vol] 2.6 mmol/L High 0.0-2.0 [facility] Comment on above: Critical Result(s) C alled LSPARR at: 1945 by: DIOGO Results read back by same. Lipaseon 04-18-2025 Lipase [Catalytic activity/Vol] 15 U/L Normal 13-75 [facility] Comment on above: Result Comment: Stacy pringle note:LIPASE revised reference range effective 23.New Lipase methodology. Expected to produce lower valuesthan the previous assay method.NEW Reference Range: 13 - 75 U/L Performed By: #### L 100.0100, L501.2450, L500.4050, L503.6005, BTS ####[facility] [address] [place], [address] Lipase measurementOrdered By : Jeffy Willoughby on 04-18-2025 Lipase [Catalytic activity/Vol] 15 U/L 13-75 [facility] Comment on above: Please note:LIPASE r evised reference range effective 23. New Lipase methodology. Expected to produce lower values than the previous assay method. NEW Reference Range: 13 - 75 U/L MCV (mean corpuscular volume ) determinationOrdered By: Jeffy Willoughby on 04-18-2025 MCV (RBC) [Entitic vol] 79.1 fL Low 81-99 [facility] Mean corpuscular hemoglobin (MCH) determinationOrdered By: Jeffyaura Willoughby on 04-18-2025 MCH (RBC) [Entitic mass] 24.6 pg Low 27.0-32.0 [facility] Mean corpuscular hemoglobin concentration (MCHC) determinationOrdered By: Jeffy Willoughby on 04-18-2025 MCHC (RBC) [Mass/Vol] 31.1 g/dL Low 32-36 [facility] Mean platelet volume determi nationOrdered By: Jeffy Willoughby on 04-18-2025 Platelet mean volume (Bld) [Entitic vol] 9.6 fL 6.2-12.0 [facility] Monocyte percentageOrdered B y: Jeffy Willoughby on 04-18-2025 Monocytes/100 WBC (Bld) 9.4 % 0-10 [facility] Neutrophil percentageOrdered By: Jeffy Willoughby on 04-18-2025 Neutrophils/100 WBC (Bld) 79.5 % High 47-70 [facility] No Panel InformationOrdered By: Sachin Murillo on 04-18-2025 356 ug/dL 228-428 [facility] No Panel InformationOrdered By: Jeffy Willoughby on 04-18-2025 16 U/L <32 [facility] Nucleated red blood cell per centageOrdered By: Jeffy Willoughby on 04-18-2025 Nucleated RBC/100 WBC (Bld) [Ratio] 0.2 % 0-5 [facility] Platelet countOrdered By: Barrett iWlloughby on 04-18-2025 Platelets (Bld) [#/Vol] 195 10*3/uL 150-450 [facility] Potassium measurement (mass/ volume)Ordered By: Jeffy Willoughby on 04-18-2025 Potassium (Unsp spec) [Mass/Vol] 3.8 mmol/L 3.3-5.1 [facility] RBC Auto (Bld) [#/Vol]Ordere d By: Jeffy Willoughby on 04-18-2025 RBC (Bld) [#/Vol] 2.97 10*6/uL Low 4.2-5.4 [facility] Serum creatinine measurement (mass/volume)Ordered By: Jeffy Willoughby on 04-18-2025 Creatinine [Mass/Vol] 1.28 mg/dL High 0.70-1.20 [facility] Serum globulin measurementOr dered By: Jeffy Willoughby on 04-18-2025 Globulin (S) [Mass/Vol] 2.4 g/dL 2.2-4.2 [facility] Serum glucose measurement (m ass/volume)Ordered By: Jeffy Willoughby on 04-18-2025 Glucose [Mass/Vol] 135 mg/dL High 70-99 [facility] Serum or plasma alanine pizarro otransferase (ALT) measurementOrdered By: Jeffy Willoughby on 04-18-2025 ALT [Catalytic activity/Vol] 8 U/L <35 [facility] Serum or plasma albumin stefania urement (mass/volume)Ordered By: Jeffy Willoughby on 04-18-2025 Albumin [Mass/Vol] 4.1 g/dL 3.4-4.8 [facility] Serum or plasma albumin/glob ulin mass ratioOrdered By: Jeffyaura Willoughby on 04-18-2025 Albumin/Globulin [Mass ratio] 1.7 {ratio} 0.9-2.4 [facility] Serum or plasma alkaline anthony sphatase measurementOrdered By: Jeffyaura Willoughby on 04-18-2025 ALP [Catalytic activity/Vol] 88 U/L 35-104 [facility] Serum or plasma calcium stefania urement (mass/volume)Ordered By: Jeffy Willoughby on 04-18-2025 Calcium [Mass/Vol] 9.0 mg/dL 7.6-11.0 [facility] Serum or plasma ferritin felicia surement (mass/volume)Ordered By: Sachin Murillo on 04-18-2025 Ferritin [Mass/Vol] 12 ng/mL Low 22-378 [facility] Serum or plasma iron saturat ion measurement (mass fraction)Ordered By: Sachin Murillo on 04-18-2025 Iron saturation [Mass fraction] 4.0 % Low 13-59 [facility] Serum or plasma urea nitroge n measurement (mass/volume)Ordered By: Jeffy Willoughby on 04-18-2025 Urea nitrogen [Mass/Vol] 24 mg/dL High 4-19 [facility] Sodium levelOrdered By: Jeffy Willoughby on 04-18-2025 Sodium [Moles/Vol] 133 mmol/L 133-145 [facility] Total proteinOrdered By: Jeffy Willoughby on 04-18-2025 Protein [Mass/Vol] 6.4 g/dL 5.9-8.4 [facility] Troponin T.cardiac [Mass/vol ume] in Serum or Plasma by High sensitivity methodOrdered By: Jeffy Willoughby on 04-18-2025 Troponin T.cardiac High sensitivity method [Mass/Vol] 24 ng/L High <14 [facility] Troponin T.cardiac High sensitivity method [Mass/Vol] 24 ng/L High <14 [facility] Troponin T.cardiac High sensitivity method [Mass/Vol] 30 ng/L High <14 [facility] Type AND Screenon 04-18-2025 ABO and Rh group Nom (Bld) Blood group O Rh(D) positive Normal [facility] Comment on above: Order Comment: MAGGI Suárez PREVIOUS SPECIMEN REJECTED DUE TOWRONG DATE OF ON SPECIMEN. 04/18/25 1903A Performed By: #### B TS ####[facility] [address] [place], [address] A1 CELL Not performed Normal [facility] Comment on above: Order Comment: A Result Comment: This specimen has been REJECTED due to Laboratory criteria:MisLabelled-INCORRECT DATE OF OF PATIENT ON FENWALBAND SPECIMEN.ED has been notified of need of recollection.04/18/251900 Performed By: #### L 100.0100, L501.2450, L500.4050, L503.6005, BTS ####[facility] [address] [place], [address] Ab SCREEN GEL Not performed Normal [facility] Comment on above: Order Comment: A Result Comment: This specimen has been REJECTED due to Laboratory criteria:MisLabelled-INCORRECT DATE OF OF PATIENT ON FENWALBAND SPECIMEN.ED has been notified of need of recollection.04/18/251900 Performed By: #### L 100.0100, L501.2450, L500.4050, L503.6005, BTS ####[facility] [address] [place], [address] ABO and Rh group Nom (Bld) Test Not Performed Normal [facility] Comment on above: Order Comment: A Result Comment: This specimen has been REJECTED due to Laboratory criteria:MisLabelled-INCORRECT DATE OF OF PATIENT ON FENWALBAND SPECIMEN.ED has been notified of need of recollection.04/18/251900 Performed By: #### L 100.0100, L501.2450, L500.4050, L503.6005, BTS ####[facility] [address] [place], [address] ANTI A Not performed Normal [facility] Comment on above: Order Comment: A Result Comment: This specimen has been REJECTED due to Laboratory criteria:MisLabelled-INCORRECT DATE OF OF PATIENT ON FENWALBAND SPECIMEN.ED has been notified of need of recollection.04/18/251900 Performed By: #### L 100.0100, L501.2450, L500.4050, L503.6005, BTS ####[facility] [address] [place], [address] ANTI B Not performed Normal [facility] Comment on above: Order Comment: A Result Comment: This specimen has been REJECTED due to Laboratory criteria:MisLabelled-INCORRECT DATE OF OF PATIENT ON FENWALBAND SPECIMEN.ED has been notified of need of recollection.04/18/251900 Performed By: #### L 100.0100, L501.2450, L500.4050, L503.6005, BTS ####[facility] [address] [place], [place], [address] ANTI D Not performed [facility] Comment on above: Order Comment: A Result Comment: This specimen has been REJECTED due to Laboratory criteria:MisLabelled-INCORRECT DATE OF OF PATIENT ON FENWALBAND SPECIMEN.ED has been notified of need of recollection.04/18/251900 Performed By: #### L 100.0100, L501.2450, L500.4050, L503.6005, BTS ####[facility] [address] [place], [place], [address] B CELLS Not performed [facility] Comment on above: Order Comment: A Result Comment: This specimen has been REJECTED due to Laboratory criteria:MisLabelled-INCORRECT DATE OF OF PATIENT ON FENWALBAND SPECIMEN.ED has been notified of need of recollection.04/18/251900 Performed By: #### L 100.0100, L501.2450, L500.4050, L503.6005, BTS ####[facility] [address] [place], [place], [address] White blood cell (WBC) count Ordered By: Jeffy Willoughby on 04-18-2025 WBC (Bld) [#/Vol] 8.7 10*3/uL 4.4-11.0 [facility] Acute Abdomen Inc Cheston Acute Abdomen Inc Chest Normal [facility] Emergency Department Summary on 04-17-2025 Emergency Department Summary Normal [facility] Brain/Head without Contrasto n 04-11-2025 Brain/Head without Contrast Normal [facility] Emergency Department Summary on 04-11-2025 Emergency Department Summary Normal [facility] Sinus/Facial Boneon 04-11-20 25 Sinus/Facial Bone Normal [facility] Spine Cervical without Contr ason 04-11-2025 Spine Cervical without Contras Normal [facility] 37on 04-08-2025 37 Please call [place] [phone] to schedule the MRI brain before 05/03/25 - this is when the authorization for the MRI expires Normal [facility] Office Visiton 04-08-2025 Follow-up visit [id number] Estephania Yo 1955 F Date Provider Department Center 04/08/2025 [id number] [facility] KAILA None Family History Family Status - Relation Status Age at Mother Notes: brain tumor Father Notes: [place] of arteries Level of Service:80185 [place] OFFICE/OUTPATIENT ESTABLISHED LOW MDM 20 MIN Reason for Visit and Comments: Follow-up [750091] Multiple Sclerosis [162] - Normal [facility] Progress Noteon 04-08-2025 Progress Note Visit type: Establijanett friedman Patient Reason for Visit: Follow-up and Multiple Sclerosis (/) Assessment and Plan 1. Multiple sclerosis (HCC) 2. Dysphasia Subjective HPI: Patient phoned in 3 days ago stating MS flare - affecting speech, swallowing, and VOSS. Went to [facility] [facility] about 1 week ago; according to [...] typical MS symptoms Received CT scan at [place] that she states was normal REVIEW- MS- [...] TSH VITAMIN B12: No results found for: [id number] No results found for: PHENYTOIN, PHENOBARB, VALPROATE, CBMZ No components found for: TOPIRA @RESULTINGLABINFO@ No results found for: LEVETIRACETA, FERRITIN, CRP, DENNIS, ANCA No results found for: CHRISTIANO, IMMUNOGLOBUL, OLIGOBANDS No results found for: [id number], HEPCAB No results found for: CRP, ANATITER, ANCA FERRITIN: No results found for: FERRITIN ---- ECG 12 lead SINUS BRADYCARDIA PROBABLE LEFT ATRIAL ABNORMALITY No previous ECG available for comparison Electronically Signed On 04-05-2023 7:42:10 EDT by Juvenal Benton @[facility]THISPROV@ IMPRESSION and PLAN: Problem List Items Ad (more content not included)... Normal [facility] 36on 04-06-2025 36 Patient has been scheduled Normal [facility] 36 I have a 200pm openi ng today or see what I or Dr. Main has open this week. Thank you. Normal [facility] 36on 04-05-2025 36 S: patient calling C AC d/t MS flare up B: Symptoms started 3 weeks ago A: states MS is flaring up. Issues with speech, trouble swallowing, headache. Seen in er a couple days ago at [facility]. States is having trouble walking is [...] be seen in office. May go to [place] er today. Patient advised to call back with worsening of symptoms, concern or questions. Patient verbalized understanding. Reason for Disposition [1] Loss of speech or garbled speech AND [2] is a chronic symptom (recurrent or ongoing AND present > 4 weeks) Protocols used: Neurologic [id number] Normal [facility] 12 Lead EKGon 04-02-2025 12 Lead EKG Normal [facility] Abdomen/Pelvis W IV Cont ONL Yon 04-02-2025 Abdomen/Pelvis W IV Cont ONLY Normal [facility] Absolute lymphocyte countOrd ered By: Nuno Grider on 04-02-2025 Lymphocytes Auto (Unsp spec) [#/Vol] 0.62 10*3/uL Low 0.83-4.51 [facility] Absolute neutrophil countOrd ered By: Nuno Grider on 04-02-2025 Neutrophils (Bld) [#/Vol] 4.7 10*3/uL 2.0-7.7 [facility] Anion gap in Serum or Plasma Ordered By: Nuno Grider on 04-02-2025 Anion gap [Moles/Vol] 13 mmol/L - [facility] Automated lymphocyte count a s percentage of total leukocytesOrdered By: Nuno Grider on 04-02-2025 Lymphocytes/100 WBC Auto (Unsp spec) 10.5 % Low 19-41 [facility] BUN/creatinine ratioOrdered By: Nuno Grider on 04-02-2025 Urea nitrogen/Creatinine [Mass ratio] 22.3 mg/mg High 10-20 [facility] Basophil percentageOrdered B y: Nuno Grider on 04-02-2025 Basophils/100 WBC (Bld) 0.5 % 0-1 [facility] Bilirubin, totalOrdered By: Nuno Grider on 04-02-2025 Bilirubin [Mass/Vol] 0.22 mg/dL 0.00-1.30 [facility] CBC W/Diff, Automatedon 03-19-2024 Absolute Lymph 0.62 X10 3/uL Low 0.83-4.51 [facility] Comment on above: Performed By: #### L 500.4050, L501.2450, L100.0100 ####[facility] [address] [place], [address] Absolute Neut 4.7 X10 3/uL Normal 2.0-7.7 [facility] Comment on above: Performed By: #### L 500.4050, L501.2450, L100.0100 ####[facility] [address] [place], [address] Basophils/100 WBC (Bld) 0.5 % Normal 0-1 [facility] Comment on above: Performed By: #### L 500.4050, L501.2450, L100.0100 ####[facility] [address] [place], [address] Eosinophils/100 WBC (Bld) 1.5 % Normal 0-5 [facility] Comment on above: Performed By: #### L 500.4050, L501.2450, L100.0100 ####[facility] [address] [place], [address] Erythrocyte distribution width (RBC) [Ratio] 16.5 % High 11.6-14.6 [facility] Comment on above: Performed By: #### L 500.4050, L501.2450, L100.0100 ####[facility] [address] [place], [address] Hematocrit (Bld) [Volume fraction] 28.2 % Low 37-47 [facility] Comment on above: Performed By: #### L 500.4050, L501.2450, L100.0100 ####[facility] [address] [place], [address] Hemoglobin (Bld) [Mass/Vol] 8.8 g/dL Low 12.0-15.0 [facility] Comment on above: Performed By: #### L 500.4050, L501.2450, L100.0100 ####[facility] [address] [place], [address] IG% 0.500 Normal 0.0-0.9 [facility] Comment on above: Result Comment: IG% - Immature Granulocytes (promyelocytes, myelocytes andmetamyelocytes) > 1% indicates that a LEFT SHIFT is Present. Performed By: #### L 500.4050, L501.2450, L100.0100 ####[facility] [address] [place], [address] Lymphocytes/100 WBC (Bld) 10.5 % Low 19-41 [facility] Comment on above: Performed By: #### L 500.4050, L501.2450, L100.0100 ####[facility] [address] [place], [address] MCH (RBC) [Entitic mass] 25.8 pg Low 27.0-32.0 [facility] Comment on above: Performed By: #### L 500.4050, L501.2450, L100.0100 ####[facility] [address] [place], [address] MCHC (RBC) [Mass/Vol] 31.2 g/dL Low 32-36 [facility] Comment on above: Performed By: #### L 500.4050, L501.2450, L100.0100 ####[facility] [address] [place], [address] MCV (RBC) [Entitic vol] 82.7 fL Normal 81-99 [facility] Comment on above: Performed By: #### L 500.4050, L501.2450, L100.0100 ####[facility] [address] [place], [address] Monocytes/100 WBC (Bld) 6.6 % Normal 0-10 [facility] Comment on above: Performed By: #### L 500.4050, L501.2450, L100.0100 ####[facility] [address] [place], [address] Neutrophils/100 WBC (Bld) 80.4 % High 47-70 [facility] Comment on above: Performed By: #### L 500.4050, L501.2450, L100.0100 ####[facility] [address] [place], [address] Nucleated RBC (Bld) [#/Vol] 0 10*3/uL Normal 0-5 [facility] Comment on above: Performed By: #### L 500.4050, L501.2450, L100.0100 ####[facility] [address] [place], [address] Platelet mean volume (Bld) [Entitic vol] 9.7 fL Normal 6.2-12.0 [facility] Comment on above: Performed By: #### L 500.4050, L501.2450, L100.0100 ####[facility] [address] [place], [address] Platelets (Bld) [#/Vol] 154 10*3/uL Normal 150-450 [facility] Comment on above: Performed By: #### L 500.4050, L501.2450, L100.0100 ####[facility] [address] [place], [address] RBC (Bld) [#/Vol] 3.41 10*6/uL Low 4.2-5.4 [facility] Comment on above: Performed By: #### L 500.4050, L501.2450, L100.0100 ####[facility] [address] [place], [address] RDW SD 49.7 fl High 35.1-43.9 [facility] Comment on above: Performed By: #### L 500.4050, L501.2450, L100.0100 ####[facility] [address] [place], [address] WBC (Bld) [#/Vol] 5.9 10*3/uL Normal 4.4-11.0 [facility] Comment on above: Performed By: #### L 500.4050, L501.2450, L100.0100 ####[facility] [address] [place], [address] Carbon dioxide, total [Moles /volume] in Central venous bloodOrdered By: Nuno Grider on 04-02-2025 CO2 [Moles/Vol] 23.7 mmol/L 21.0-32.0 [facility] Chloride assayOrdered By: Jorge Grider on 04-02-2025 Chloride [Moles/Vol] 102 mmol/L 98-108 [facility] Comprehensive Metabolic Prof ilon 04-02-2025 Albumin [Mass/Vol] 4.2 g/dL Normal 3.4-4.8 [facility] Comment on above: Performed By: #### L 500.4050, L501.2450, L100.0100 ####[facility] [address] [place], [address] Albumin/Globulin [Mass ratio] 1.7 {ratio} Normal 0.9-2.4 [facility] Comment on above: Performed By: #### L 500.4050, L501.2450, L100.0100 ####[facility] [address] [place], [address] ALK PHOS 87 U/L Normal 35-104 [facility] Comment on above: Performed By: #### L 500.4050, L501.2450, L100.0100 ####[facility] [address] [place], [address] ALT [Catalytic activity/Vol] 14 U/L Normal <=34 [facility] Comment on above: Performed By: #### L 500.4050, L501.2450, L100.0100 ####[facility] [address] [place], [address] AST [Catalytic activity/Vol] 16 U/L Normal <=31 [facility] Comment on above: Performed By: #### L 500.4050, L501.2450, L100.0100 ####[facility] [address] [place], [address] Bilirubin [Mass/Vol] 0.22 mg/dL Normal 0.00-1.30 [facility] Comment on above: Performed By: #### L 500.4050, L501.2450, L100.0100 ####[facility] [address] [place], [address] BUN/CRE 22.3 RATIO High 10-20 [facility] Comment on above: Performed By: #### L 500.4050, L501.2450, L100.0100 ####[facility] [address] [place], [address] Calcium [Mass/Vol] 9.6 mg/dL Normal 7.6-11.0 [facility] Comment on above: Performed By: #### L 500.4050, L501.2450, L100.0100 ####[facility] [address] [place], [address] Chloride [Moles/Vol] 102 mmol/L Normal 98-108 [facility] Comment on above: Performed By: #### L 500.4050, L501.2450, L100.0100 ####[facility] [address] [place], [address] CO2 [Moles/Vol] 23.7 mmol/L Normal 21.0-32.0 [facility] Comment on above: Performed By: #### L 500.4050, L501.2450, L100.0100 ####[facility] [address] [place], [address] Creatinine [Mass/Vol] 1.23 mg/dL High 0.70-1.20 [facility] Comment on above: Performed By: #### L 500.4050, L501.2450, L100.0100 ####[facility] [address] [place], [address] ECRCL 34.53 ml/min Low 50-250 [facility] Comment on above: Performed By: #### L 500.4050, L501.2450, L100.0100 ####[facility] [address] [place], [address] GAP 13 Normal 5-15 [facility] Comment on above: Performed By: #### L 500.4050, L501.2450, L100.0100 ####[facility] [address] [place], [address] GFR/1.73 sq M.predicted among non-blacks MDRD (S/P/Bld) [Vol rate/Area] 47 mL/min/{1.73_m2} Low >60 [facility] Comment on above: Result Comment: mL/m in/1.73m2 CKD-EPI Creatinine Equation (2020) Performed By: #### L 500.4050, L501.2450, L100.0100 ####[facility] [address] [place], [address] Globulin (S) [Mass/Vol] 2.5 g/dL Normal 2.2-4.2 [facility] Comment on above: Performed By: #### L 500.4050, L501.2450, L100.0100 ####[facility] [address] [place], [address] Glucose [Mass/Vol] 129 mg/dL High 70-99 [facility] Comment on above: Performed By: #### L 500.4050, L501.2450, L100.0100 ####[facility] [address] [place], [address] Potassium [Moles/Vol] 4.0 mmol/L Normal 3.3-5.1 [facility] Comment on above: Performed By: #### L 500.4050, L501.2450, L100.0100 ####[facility] [address] [place], [address] Sodium [Moles/Vol] 138 mmol/L Normal 133-145 [facility] Comment on above: Performed By: #### L 500.4050, L501.2450, L100.0100 ####[facility] [address] [place], [address] T PROT 6.7 g/dL Normal 5.9-8.4 [facility] Comment on above: Performed By: #### L 500.4050, L501.2450, L100.0100 ####[facility] [address] [place], [address] Urea nitrogen [Mass/Vol] 27 mg/dL High 4-19 [facility] Comment on above: Performed By: #### L 500.4050, L501.2450, L100.0100 ####[facility] [address] [place], [address] Emergency Department Summary on 04-02-2025 Emergency Department Summary Normal [facility] Eosinophil percentageOrdered By: Nuno Grider on 04-02-2025 Eosinophils/100 WBC (Bld) 1.5 % 0-5 [facility] Erythrocyte distribution wid th ratioOrdered By: Nuno Grider on 04-02-2025 Erythrocyte distribution width (RBC) [Ratio] 16.5 % High 11.6-14.6 [facility] Erythrocyte distribution wid th standard deviationOrdered By: Nuno Grider on 04-02-2025 Erythrocyte distribution width (RBC) [Ratio] 49.7 fl High 35.1-43.9 [facility] Glomerular filtration rate ( GFR) estimation/1.73 sq m using serum, plasma, or whole bOrdered By: Nuno Grider on 04-02-2025 GFR/1.73 sq M.predicted among non-blacks MDRD (S/P/Bld) [Vol rate/Area] 47 mL/min/{1.73_m2} Low >60 [facility] Comment on above: mL/min/1.73m2 CKD-EP I Creatinine Equation (2020) Hematocrit Auto (Bld) [Volum e fraction]Ordered By: Nuno Grider on 04-02-2025 Hematocrit (Bld) [Volume fraction] 28.2 % Low 37-47 [facility] Hemoglobin measurementOrdere d By: Nuno Grider on 04-02-2025 Hemoglobin (Bld) [Mass/Vol] 8.8 g/dL Low 12.0-15.0 [facility] Immature granulocytes/100 WB C Auto (Bld)Ordered By: Nuno Grider on 04-02-2025 Immature granulocytes/100 WBC (Bld) 0.500 % 0.0-0.9 [facility] Comment on above: IG% - Immature Granu locytes (promyelocytes, myelocytes and metamyelocytes) > 1% indicates that a LEFT SHIFT is Present. Laboratory - Chemistry and C hemistry - challengeOrdered By: Nuno Grider on 05-15-2025 AST [Catalytic activity/Vol] 16 U/L <32 [facility] Lipaseon 04-02-2025 Lipase [Catalytic activity/Vol] 23 U/L Normal 13-75 [facility] Comment on above: Result Comment: Stacy pringle note:LIPASE revised reference range effective 23.New Lipase methodology. Expected to produce lower valuesthan the previous assay method.NEW Reference Range: 13 - 75 U/L Performed By: #### L 500.4050, L501.2450, L100.0100 ####[facility] [address] [place], [address] Lipase measurementOrdered By : Nuno Grider on 04-02-2025 Lipase [Catalytic activity/Vol] 23 U/L 13-75 [facility] Comment on above: Please note:LIPASE r evised reference range effective 23. New Lipase methodology. Expected to produce lower values than the previous assay method. NEW Reference Range: 13 - 75 U/L MCV (mean corpuscular volume ) determinationOrdered By: Nuno Grider on 04-02-2025 MCV (RBC) [Entitic vol] 82.7 fL 81-99 [facility] Mean corpuscular hemoglobin (MCH) determinationOrdered By: Nuno Grider on 04-02-2025 MCH (RBC) [Entitic mass] 25.8 pg Low 27.0-32.0 [facility] Mean corpuscular hemoglobin concentration (MCHC) determinationOrdered By: Nuno Grider on 04-02-2025 MCHC (RBC) [Mass/Vol] 31.2 g/dL Low 32-36 [facility] Mean platelet volume determi nationOrdered By: Nuno Grider on 04-02-2025 Platelet mean volume (Bld) [Entitic vol] 9.7 fL 6.2-12.0 [facility] Monocyte percentageOrdered B y: Nuno Grider on 04-02-2025 Monocytes/100 WBC (Bld) 6.6 % 0-10 [facility] Neutrophil percentageOrdered By: Nuno Grider on 04-02-2025 Neutrophils/100 WBC (Bld) 80.4 % High 47-70 [facility] No Panel InformationOrdered By: Nuno Grider on 04-02-2025 16 U/L <32 [facility] Nucleated red blood cell per centageOrdered By: Nuno Grider on 04-02-2025 Nucleated RBC/100 WBC (Bld) [Ratio] 0 % 0-5 [facility] Platelet countOrdered By: Jorge Grider on 04-02-2025 Platelets (Bld) [#/Vol] 154 10*3/uL 150-450 [facility] Potassium measurement (mass/ volume)Ordered By: Nuno Grider on 04-02-2025 Potassium (Unsp spec) [Mass/Vol] 4.0 mmol/L 3.3-5.1 [facility] RBC Auto (Bld) [#/Vol]Ordere d By: Nuno Grider on 04-02-2025 RBC (Bld) [#/Vol] 3.41 10*6/uL Low 4.2-5.4 [facility] Serum creatinine measurement (mass/volume)Ordered By: Nuno Grider on 04-02-2025 Creatinine [Mass/Vol] 1.23 mg/dL High 0.70-1.20 [facility] Serum globulin measurementOr dered By: Nuno Grider on 04-02-2025 Globulin (S) [Mass/Vol] 2.5 g/dL 2.2-4.2 [facility] Serum glucose measurement (m ass/volume)Ordered By: Nuno Grider on 04-02-2025 Glucose [Mass/Vol] 129 mg/dL High 70-99 [facility] Serum or plasma alanine pizarro otransferase (ALT) measurementOrdered By: Nuno Grider on 04-02-2025 ALT [Catalytic activity/Vol] 14 U/L <35 [facility] Serum or plasma albumin stefania urement (mass/volume)Ordered By: Nuno Grider on 04-02-2025 Albumin [Mass/Vol] 4.2 g/dL 3.4-4.8 [facility] Serum or plasma albumin/glob ulin mass ratioOrdered By: Nuno Grider on 04-02-2025 Albumin/Globulin [Mass ratio] 1.7 {ratio} 0.9-2.4 [facility] Serum or plasma alkaline anthony sphatase measurementOrdered By: Nuno Grider on 04-02-2025 ALP [Catalytic activity/Vol] 87 U/L 35-104 [facility] Serum or plasma calcium stefania urement (mass/volume)Ordered By: Nuno Grider on 04-02-2025 Calcium [Mass/Vol] 9.6 mg/dL 7.6-11.0 [facility] Serum or plasma urea nitroge n measurement (mass/volume)Ordered By: Nuno Grider on 04-02-2025 Urea nitrogen [Mass/Vol] 27 mg/dL High 4-19 [facility] Sodium levelOrdered By: Nuno Grider on 04-02-2025 Sodium [Moles/Vol] 138 mmol/L 133-145 [facility] Total proteinOrdered By: Clari Grider on 04-02-2025 Protein [Mass/Vol] 6.7 g/dL 5.9-8.4 [facility] Urinalysis, Completeon 04-02 BACTERIA Normal None Seen [facility] Comment on above: Order Comment: THEODORE CTOR TO SPECIFY Result Comment: @PT DEPARTED ER, OK TO CANCEL BY ROSENDO Performed By: #### L 400.0001 ####[facility] [address] [place], [place], [address] BILIRUBIN URINE Normal Negative [facility] Comment on above: Order Comment: THEODORE CTOR TO SPECIFY Result Comment: @PT DEPARTED ER, OK TO CANCEL BY CHRISTIANAOSTETTLER Performed By: #### L 400.0001 ####[facility] [address] [place], [address] Clarity (U) Normal Clear [facility] Comment on above: Order Comment: THEODORE CTOR TO SPECIFY Result Comment: @PT DEPARTED ER, OK TO CANCEL BY CHRISTIAANOSTETTLER Performed By: #### L 400.0001 ####[facility] [address] [place], [address] Color (U) Normal Yellow [facility] Comment on above: Order Comment: THEODORE CTOR TO SPECIFY Result Comment: @PT DEPARTED ER, OK TO CANCEL BY MHOSTETTLER Performed By: #### L 400.0001 ####[facility] [address] [place], [address] EPI,SQUAMOUS Normal 5-10 [facility] Comment on above: Order Comment: COLLE CTOR TO SPECIFY Result Comment: @PT DEPARTED ER, OK TO CANCEL BY MHOSTETTLER Performed By: #### L 400.0001 ####[facility] [address] [place], [address] GLUCOSE, UR Normal Normal [facility] Comment on above: Order Comment: COLLE CTOR TO SPECIFY Result Comment: @PT DEPARTED ER, OK TO CANCEL BY MHOSTETTLER Performed By: #### L 400.0001 ####[facility] [address] [place], [address] KETONE UR Normal Negative [facility] Comment on above: Order Comment: COLLE CTOR TO SPECIFY Result Comment: @PT DEPARTED ER, OK TO CANCEL BY MHOSTETTLER Performed By: #### L 400.0001 ####[facility] [address] [place], [address] LEUK ESTERASE Normal Negative [facility] Comment on above: Order Comment: COLLE CTOR TO SPECIFY Result Comment: @PT DEPARTED ER, OK TO CANCEL BY MHOSTETTLER Performed By: #### L 400.0001 ####[facility] [address] [place], [address] Mucus Ql (Urine sed) Normal [facility] Comment on above: Order Comment: COLLE CTOR TO SPECIFY Result Comment: @PT DEPARTED ER, OK TO CANCEL BY MHOSTETTLER Performed By: #### L 400.0001 ####[facility] [address] [place], [address] Nitrite Ql (U) Normal Negative [facility] Comment on above: Order Comment: COLLE CTOR TO SPECIFY Result Comment: @PT DEPARTED ER, OK TO CANCEL BY MHOSTETTLER Performed By: #### L 400.0001 ####[facility] [address] [place], [address] OCCULT BLOOD-UR Normal Negative [facility] Comment on above: Order Comment: COLLE CTOR TO SPECIFY Result Comment: @PT DEPARTED ER, OK TO CANCEL BY MHOSTETTLER Performed By: #### L 400.0001 ####[facility] [address] [place], [address] pH UR Normal 5.0 - 8.0 [facility] Comment on above: Order Comment: COLLE CTOR TO SPECIFY Result Comment: @PT DEPARTED ER, OK TO CANCEL BY MHOSTETTLER Performed By: #### L 400.0001 ####[facility] [address] [place], [address] PROT DIPSTX Normal Negative [facility] Comment on above: Order Comment: COLLE CTOR TO SPECIFY Result Comment: @PT DEPARTED ER, OK TO CANCEL BY MHOSTETTLER Performed By: #### L 400.0001 ####[facility] [address] [place], [address] RBC Normal 0-5 [facility] Comment on above: Order Comment: THEODORE CTOR TO SPECIFY Result Comment: @PT DEPARTED ER, OK TO CANCEL BY MHOSTETTLER Performed By: #### L 400.0001 ####[facility] [address] [place], [address] SP.GR. DIPSTX Normal 1.002-1.03 0 [facility] Comment on above: Order Comment: COLLE CTOR TO SPECIFY Result Comment: @PT DEPARTED ER, OK TO CANCEL BY MHOSTETTLER Performed By: #### L 400.0001 ####[facility] [address] [place], [address] UR Preservative Normal [facility] Comment on above: Order Comment: COLLE CTOR TO SPECIFY Result Comment: @PT DEPARTED ER, OK TO CANCEL BY MHOSTETTLER Performed By: #### L 400.0001 ####[facility] [address] [place], [address] UROBILI Normal Normal [facility] Comment on above: Order Comment: COLLE CTOR TO SPECIFY Result Comment: @PT DEPARTED ER, OK TO CANCEL BY MHOSTETTLER Performed By: #### L 400.0001 ####[facility] [address] [place], [address] WBC Normal 0-5 [facility] Comment on above: Order Comment: COLLE CTOR TO SPECIFY Result Comment: @PT DEPARTED ER, OK TO CANCEL BY MHOSTETTLER Performed By: #### L 400.0001 ####[facility] [address] [place], [address] White blood cell (WBC) count Ordered By: Nuno Grider on 04-02-2025 WBC (Bld) [#/Vol] 5.9 10*3/uL 4.4-11.0 [facility] Echo Transesophageal (GREGORIO)on 03-19-2025 Echo Transesophageal (GREGORIO) Normal [facility] 36on 03-09-2025 36 Order re faxed to [phone] [facility]. [facility] 36 Name of caller: Brice aragon Contact phone number: [phone] Relationship to Patient: [facility] Provider: AURORA Lynn Practice: [facility] [place] Chief Complaint/Reason for Call: Kody called in requesting patient's MRI order be faxed over to them at fax # [phone]. Please be advised Best time of day caller can be reached: Any Patient advised that office/PCP has 24-48 business hours to return their call: N/A [facility] 36on 03-04-2025 36 Call to patient. Renuka dominog notified. Patient Stated will scheduled testing. [facility] 36 We have been unable to reach your patient to schedule their testing. Test Name: EEG 1st Attempt: 03/04 pt stated this will be done at [facility] Office Visiton 03-04-2025 Follow-up visit [id number] ChristinEstephania snow edgar Ohara 1955 F Date Provider Department Center 03/04/2025 [id number], [facility] KAIL[facility] None Family History Family Status - Relation Status Age at Mother Notes: brain tumor Father Notes: [place] of arteries Level of Service:04660 [place] OFFICE/OUTPATIENT ESTABLISHED LOW MDM 20 MIN Reason for Visit and Comments: Follow-up [008139] Multiple Sclerosis [162] [facility] Progress Noteon 03-04-2025 Progress Note Visit [...] daily., Disp: 9 (more content not included)... [facility] 36on 03-02-2025 36 Refused as it has be en over a year since her last visit. Will refill at her upcoming appt. [facility] 36 Last ov- 12/14/23 Next ov- 03/04/[address] [facility] 36on 02-25-2025 36 patient has been not ified of providers message. Appointment has been scheduled [facility] 36 Patient's last offic e visit was over a year ago; she needs a follow up before I can order more refills. Thank you. [facility] 36on 02-24-2025 36 Forwarding to provid er for review and advice. Called pharmacy spoke with event crew technician who stated patient picked up refill on January 18. [facility] 36 Medication name: staci lofen (Lioresal) [...] prior to picking up the medication: Yes [facility] Cardiology Visit Reporton Cardiology Visit Report Normal [facility] Thoracic Spine 2 Viewson Thoracic Spine [address] [facility] Discharge Instructionon 12-21 Discharge Instruction Normal [facility] Activated partial thrombopla stin time (aPTT) in platelet poor plasma by coagulation aOrdered By: on 01-12-2025 aPTT Coag (PPP) [Time] 76.6 s High 24.1-36.2 [facility] Partial Thromboplast Timeon 01-12-2025 aPTT Coag (Bld) [Time] 76.6 s High 24.1-36.2 [facility] Comment on above: Performed By: #### L 300.4310 ####[facility] [address] [place], [place], [id number] aPTT Coag (Bld) [Time] 60.2 s High 24.1-36.2 [facility] Comment on above: Order Comment: Comme nts: time sensitive hep gtt Performed By: #### L 300.4310 ####[facility] [address] [place], [place], [id number] Absolute lymphocyte countOrd ered By: on 01-11-2025 Lymphocytes Auto (Unsp spec) [#/Vol] 1.07 10*3/uL 0.83-4.51 [facility] Absolute neutrophil countOrd ered By: on 01-11-2025 Neutrophils (Bld) [#/Vol] 3.6 10*3/uL 2.0-7.7 [facility] Albumin to globulin ratioOrd ered By: on 01-11-2025 Albumin/Globulin [Mass ratio] 0.8 {ratio} Low 0.9-2.4 [facility] Automated lymphocyte count a s percentage of total leukocytesOrdered By: on 01-11-2025 Lymphocytes/100 WBC Auto (Unsp spec) 20.5 % 19-41 [facility] Basophil percentageOrdered B y: White on 01-11-2025 Basophils/100 WBC (Bld) 0.4 % 0-1 [facility] Bilirubin, totalOrdered By: Sommer Resendiz on 01-11-2025 Bilirubin [Mass/Vol] 0.30 mg/dL 0.20-1.00 [facility] Comment on above: For patients on eltr ombopag therapy, use of Dimension Bonaparte TBIL is not recommended. Blood urea nitrogen (BUN)/cr eatinine ratioOrdered By: Sommer Resendiz on 01-11-2025 Urea nitrogen/Creatinine [Mass ratio] 20.8 mg/mg High 10-20 [facility] CBC W/Diff, Automatedon 12-21 Absolute Lymph 1.07 X10 3/uL Normal 0.83-4.51 [facility] Comment on above: Performed By: #### L 501.4020, L500.4050, L100.0100 ####[facility] [address] [place], [address] Absolute Neut 3.6 X10 3/uL Normal 2.0-7.7 [facility] Comment on above: Performed By: #### L 501.4020, L500.4050, L100.0100 ####[facility] [address] [place], [address] Basophils/100 WBC (Bld) 0.4 % Normal 0-1 [facility] Comment on above: Performed By: #### L 501.4020, L500.4050, L100.0100 ####[facility] [address] [place], [address] Eosinophils/100 WBC (Bld) 1.0 % Normal 0-5 [facility] Comment on above: Performed By: #### L 501.4020, L500.4050, L100.0100 ####[facility] [address] [place], [address] Erythrocyte distribution width (RBC) [Ratio] 14.9 % High 11.6-14.6 [facility] Comment on above: Performed By: #### L 501.4020, L500.4050, L100.0100 ####[facility] [address] [place], [address] Hematocrit (Bld) [Volume fraction] 39.1 % Normal 37-47 [facility] Comment on above: Performed By: #### L 501.4020, L500.4050, L100.0100 ####[facility] [address] [place], [address] Hemoglobin (Bld) [Mass/Vol] 12.5 g/dL Normal 12.0-15.0 [facility] Comment on above: Performed By: #### L 501.4020, L500.4050, L100.0100 ####[facility] [address] [place], [address] IG% 0.400 Normal 0.0-0.9 [facility] Comment on above: Result Comment: IG% - Immature Granulocytes (promyelocytes, myelocytes andmetamyelocytes) > 1% indicates that a LEFT SHIFT is Present. Performed By: #### L 501.4020, L500.4050, L100.0100 ####[facility] [address] [place], [address] Lymphocytes/100 WBC (Bld) 20.5 % Normal 19-41 [facility] Comment on above: Performed By: #### L 501.4020, L500.4050, L100.0100 ####[facility] [address] [place], [address] MCH (RBC) [Entitic mass] 26.4 pg Low 27.0-32.0 [facility] Comment on above: Performed By: #### L 501.4020, L500.4050, L100.0100 ####[facility] [address] [place], [address] MCHC (RBC) [Mass/Vol] 32.0 g/dL Normal 32-36 [facility] Comment on above: Performed By: #### L 501.4020, L500.4050, L100.0100 ####[facility] [address] [place], [address] MCV (RBC) [Entitic vol] 82.7 fL Normal 81-99 [facility] Comment on above: Performed By: #### L 501.4020, L500.4050, L100.0100 ####[facility] [address] [place], [address] Monocytes/100 WBC (Bld) 9.4 % Normal 0-10 [facility] Comment on above: Performed By: #### L 501.4020, L500.4050, L100.0100 ####[facility] [address] [place], [address] Neutrophils/100 WBC (Bld) 68.3 % Normal 47-70 [facility] Comment on above: Performed By: #### L 501.4020, L500.4050, L100.0100 ####[facility] [address] [place], [address] Nucleated RBC (Bld) [#/Vol] 0 10*3/uL Normal 0-5 [facility] Comment on above: Performed By: #### L 501.4020, L500.4050, L100.0100 ####[facility] [address] [place], [address] Platelet mean volume (Bld) [Entitic vol] 10.4 fL Normal 6.2-12.0 [facility] Comment on above: Performed By: #### L 501.4020, L500.4050, L100.0100 ####[facility] [address] [place], [address] Platelets (Bld) [#/Vol] 158 10*3/uL Normal 150-450 [facility] Comment on above: Performed By: #### L 501.4020, L500.4050, L100.0100 ####[facility] [address] [place], [address] RBC (Bld) [#/Vol] 4.73 10*6/uL Normal 4.2-5.4 [facility] Comment on above: Performed By: #### L 501.4020, L500.4050, L100.0100 ####[facility] [address] [place], [address] RDW SD 45.2 fl High 35.1-43.9 [facility] Comment on above: Performed By: #### L 501.4020, L500.4050, L100.0100 ####[facility] [address] [place], [address] WBC (Bld) [#/Vol] 5.2 10*3/uL Normal 4.4-11.0 [facility] Comment on above: Performed By: #### L 501.4020, L500.4050, L100.0100 ####[facility] [address] [place], [address] Carbon dioxide measurementOr dered By: Sommer Resendiz on 01-11-2025 CO2 [Moles/Vol] 25.0 mmol/L 21.0-32.0 [facility] Chloride measurementOrdered By: Sommer Resendiz on 01-11-2025 Chloride [Moles/Vol] 101 mmol/L 98-107 [facility] Comprehensive Metabolic Prof ilon 01-11-2025 Albumin [Mass/Vol] 3.4 g/dL Normal 3.2-5.0 [facility] Comment on above: Order Comment: Comme nts: SPECIMEN #2'TROP' Serial specimen #1, #2 or #3: 2 Performed By: #### L 501.4020, L500.4050, L100.0100 ####[facility] [address] [place], [address] Albumin/Globulin [Mass ratio] 0.8 {ratio} Low 0.9-2.4 [facility] Comment on above: Order Comment: Comme nts: SPECIMEN #2'TROP' Serial specimen #1, #2 or #3: 2 Performed By: #### L 501.4020, L500.4050, L100.0100 ####[facility] [address] [place], [address] ALK P 182 U/L High 45-117 [facility] Comment on above: Order Comment: Comme nts: SPECIMEN #2'TROP' Serial specimen #1, #2 or #3: 2 Performed By: #### L 501.4020, L500.4050, L100.0100 ####[facility] [address] [place], [address] ALT [Catalytic activity/Vol] 22 U/L Normal 13-56 [facility] Comment on above: Order Comment: Comme nts: SPECIMEN #2'TROP' Serial specimen #1, #2 or #3: 2 Performed By: #### L 501.4020, L500.4050, L100.0100 ####[facility] [address] [place], [address] AST [Catalytic activity/Vol] 27 U/L Normal 15-37 [facility] Comment on above: Order Comment: Comme nts: SPECIMEN #2'TROP' Serial specimen #1, #2 or #3: 2 Performed By: #### L 501.4020, L500.4050, L100.0100 ####[facility] [address] [place], [address] Bilirubin [Mass/Vol] 0.30 mg/dL Normal 0.20-1.00 [facility] Comment on above: Order Comment: Comme nts: SPECIMEN #2'TROP' Serial specimen #1, #2 or #3: 2 Result Comment: For patients on eltrombopag therapy, use of Dimension Bonaparte TBIL is not recommended. Performed By: #### L 501.4020, L500.4050, L100.0100 ####[facility] [address] [place], [address] BUN/CRE 20.8 RATIO High 10-20 [facility] Comment on above: Order Comment: Comme nts: SPECIMEN #2'TROP' Serial specimen #1, #2 or #3: 2 Performed By: #### L 501.4020, L500.4050, L100.0100 ####[facility] [address] [place], [address] CA,Total 9.3 mg/dL Normal 8.5-10.1 [facility] Comment on above: Order Comment: Comme nts: SPECIMEN #2'TROP' Serial specimen #1, #2 or #3: 2 Performed By: #### L 501.4020, L500.4050, L100.0100 ####[facility] [address] [place], [address] Chloride [Moles/Vol] 101 mmol/L Normal 98-107 [facility] Comment on above: Order Comment: Comme nts: SPECIMEN #2'TROP' Serial specimen #1, #2 or #3: 2 Performed By: #### L 501.4020, L500.4050, L100.0100 ####[facility] [address] [place], [address] CO2 [Moles/Vol] 25.0 mmol/L Normal 21.0-32.0 [facility] Comment on above: Order Comment: Comme nts: SPECIMEN #2'TROP' Serial specimen #1, #2 or #3: 2 Performed By: #### L 501.4020, L500.4050, L100.0100 ####[facility] [address] [place], [address] Creatinine [Mass/Vol] 1.06 mg/dL High 0.55-1.02 [facility] Comment on above: Order Comment: Comme nts: SPECIMEN #2'TROP' Serial specimen #1, #2 or #3: 2 Result Comment: The validity of the calculated GFR GFRAA in patients over70 years has not been determined. Clinical correlation isessential. Performed By: #### L 501.4020, L500.4050, L100.0100 ####[facility] [address] [place], [address] ECRCL 39.37 ml/min Normal [facility] Comment on above: Order Comment: Comme nts: SPECIMEN #2'TROP' Serial specimen #1, #2 or #3: 2 Performed By: #### L 501.4020, L500.4050, L100.0100 ####[facility] [address] [place], [address] EST GFR - AA 66 mL/min Normal >60 [facility] Comment on above: Order Comment: Comme nts: SPECIMEN #2'TROP' Serial specimen #1, #2 or #3: 2 Result Comment: Afri can Argentine GFR Calc Performed By: #### L 501.4020, L500.4050, L100.0100 ####[facility] [address] [place], [address] GAP 8 Normal 5-15 [facility] Comment on above: Order Comment: Comme nts: SPECIMEN #2'TROP' Serial specimen #1, #2 or #3: 2 Performed By: #### L 501.4020, L500.4050, L100.0100 ####[facility] [address] [place], [address] GFR/1.73 sq M.predicted among non-blacks MDRD (S/P/Bld) [Vol rate/Area] 54 mL/min/{1.73_m2} Low >60 [facility] Comment on above: Order Comment: Comme nts: SPECIMEN #2'TROP' Serial specimen #1, #2 or #3: 2 Result Comment: Non- GFR Calc Performed By: #### L 501.4020, L500.4050, L100.0100 ####[facility] [address] [place], [address] Globulin (S) [Mass/Vol] 4.0 g/dL Normal 2.2-4.2 [facility] Comment on above: Order Comment: Comme nts: SPECIMEN #2'TROP' Serial specimen #1, #2 or #3: 2 Performed By: #### L 501.4020, L500.4050, L100.0100 ####[facility] [address] [place], [address] Glucose [Mass/Vol] 106 mg/dL Normal 74-106 [facility] Comment on above: Order Comment: Comme nts: SPECIMEN #2'TROP' Serial specimen #1, #2 or #3: 2 Result Comment: Fast ing Glucose result from 100 to 125 mg/dLsuggests IMPAIRED HOMEOSTASIS per A.D.A. criteria. Performed By: #### L 501.4020, L500.4050, L100.0100 ####[facility] [address] [place], [address] Potassium [Moles/Vol] 4.2 mmol/L Normal 3.5-5.1 [facility] Comment on above: Order Comment: Comme nts: SPECIMEN #2'TROP' Serial specimen #1, #2 or #3: 2 Performed By: #### L 501.4020, L500.4050, L100.0100 ####[facility] [address] [place], [address] Sodium [Moles/Vol] 135 mmol/L Low 136-145 [facility] Comment on above: Order Comment: Comme nts: SPECIMEN #2'TROP' Serial specimen #1, #2 or #3: 2 Performed By: #### L 501.4020, L500.4050, L100.0100 ####[facility] [address] [place], [address] T PROT 7.4 g/dL Normal 6.4-8.2 [facility] Comment on above: Order Comment: Comme nts: SPECIMEN #2'TROP' Serial specimen #1, #2 or #3: 2 Performed By: #### L 501.4020, L500.4050, L100.0100 ####[facility] [address] [place], [address] Urea nitrogen [Mass/Vol] 22 mg/dL High 7-18 [facility] Comment on above: Order Comment: Comme nts: SPECIMEN #2'TROP' Serial specimen #1, #2 or #3: 2 Performed By: #### L 501.4020, L500.4050, L100.0100 ####[facility] [address] [facility] [address] [place], [place], [address] Consultation - Cardiologyon 01-11-2025 Consultation - Cardiology Normal [facility] Echo Completeon 01-11-2025 Echo Complete Normal [facility] Eosinophil percentageOrdered By: Sommer Resendiz on 01-11-2025 Eosinophils/100 WBC (Bld) 1.0 % 0-5 [facility] Erythrocyte distribution wid th ratioOrdered By: Sommer Martín on 01-11-2025 Erythrocyte distribution width (RBC) [Ratio] 14.9 % High 11.6-14.6 [facility] Erythrocyte distribution wid th standard deviationOrdered By: Sommer Martín on 01-11-2025 Erythrocyte distribution width (RBC) [Ratio] 45.2 fl High 35.1-43.9 [facility] Glomerular filtration rate ( GFR) estimationOrdered By: Sommer Martín on 01-11-2025 GFR/1.73 sq M.predicted among non-blacks MDRD (S/P/Bld) [Vol rate/Area] 54 mL/min/{1.73_m2} Low >60 [facility] Comment on above: Non- GFR Calc Glucose measurementOrdered B y: Sommer Martín on 01-11-2025 Glucose [Mass/Vol] 106 mg/dL 74-106 [facility] Comment on above: Fasting Glucose resu lt from 100 to 125 mg/dL suggests IMPAIRED HOMEOSTASIS per A.D.A. criteria. Hematocrit Auto (Bld) [Volum e fraction]Ordered By: Sommer Martín on 01-11-2025 Hematocrit (Bld) [Volume fraction] 39.1 % 37-47 [facility] Hemoglobin measurementOrdere d By: Sommer Resendiz on 01-11-2025 Hemoglobin (Bld) [Mass/Vol] 12.5 g/dL 12.0-15.0 [facility] Immature granulocytes/100 WB C Auto (Bld)Ordered By: Sommer Martín on 01-11-2025 Immature granulocytes/100 WBC (Bld) 0.400 % 0.0-0.9 [facility] Comment on above: IG% - Immature Granu locytes (promyelocytes, myelocytes and metamyelocytes) > 1% indicates that a LEFT SHIFT is Present. International normalized rat io (INR) calculationOrdered By: Benjy Flores on 01-11-2025 INR Coag (Bld) [Relative time] 1.0 {INR} [facility] L501.4020on 01-11-2025 TROPONIN-I HS 1688 pg/mL Invalid Interpretation Code 3.0-54.0 [facility] Comment on above: Order Comment: Comme nts: SPECIMEN #3'TROP' Serial specimen #1, #2 or #3: 3 Result Comment: Crit ical Result(s) Called at: 10:12:22 01/11/2025 by:Joana Lainez. Results read back by same. Please Note: New Test Units and Gender Specific Reference Ranges. For more information see Policy Stat Procedure Bonaparte High Sensitivity Troponin (TNIH) and attachments. Performed By: #### L 501.4020 ####[facility] [address] [place], [address] TROPONIN-I HS 1841 pg/mL Invalid Interpretation Code 3.0-54.0 [facility] Comment on above: Order Comment: Comme nts: SPECIMEN #2'TROP' Serial specimen #1, #2 or #3: 2 Result Comment: Crit ical Result(s) Called at: 06:12:52 01/11/2025 by:Joana Mariscal. Results read back by same. Please Note: New Test Units and Gender Specific Reference Ranges. For more information see Policy Stat Procedure Bonaparte High Sensitivity Troponin (TNIH) and attachments. Performed By: #### L 501.4020, L500.4050, L100.0100 ####[facility] [address] [place], [address] TROPONIN-I HS 1798 pg/mL Invalid Interpretation Code 3.0-54.0 [facility] Comment on above: Order Comment: 'TROP ' Serial specimen #1, #2 or #3: 1 Result Comment: Crit ical Result(s) Called at: 04:22:19 01/11/2025 by:LORENA KENDALL TO EVERT FAY. Results read back by same. Please Note: New Test Units and Gender Specific Reference Ranges. For more information see Policy Stat Procedure Bonaparte High Sensitivity Troponin (TNIH) and attachments. Performed By: #### L 501.4020 ####[facility] [address] [place], [place], [address] Laboratory - Chemistry and C hemistry - challengeOrdered By: Sommer Resendiz on 01-11-2025 AST [Catalytic activity/Vol] 27 U/L 15-37 [facility] M100.019on 01-11-2025 M100.019 Negative Normal [facility] Comment on above: Performed By: #### M 100.019 ####[facility] [address] [place], [address] MCV (mean corpuscular volume ) determinationOrdered By: Sommer Resendiz on 01-11-2025 MCV (RBC) [Entitic vol] 82.7 fL 81-99 [facility] Magnesiumon 01-11-2025 Magnesium [Mass/Vol] 2.0 mg/dL Normal 1.6-2.6 [facility] Comment on above: Order Comment: Comme nts: may add to ED labs Performed By: #### L 501.5200 ####[facility] [address] [place], [place], [address] Mean corpuscular hemoglobin (MCH) determinationOrdered By: Sommer Resendiz on 01-11-2025 MCH (RBC) [Entitic mass] 26.4 pg Low 27.0-32.0 [facility] Mean corpuscular hemoglobin concentration (MCHC) determinationOrdered By: Sommer Resendiz on 01-11-2025 MCHC (RBC) [Mass/Vol] 32.0 g/dL 32-36 [facility] Mean platelet volume determi nationOrdered By: [facility] Martín on 01-11-2025 Platelet mean volume (Bld) [Entitic vol] 10.4 fL 6.2-12.0 [facility] Monocyte percentageOrdered B y: Sommer White on 01-11-2025 Monocytes/100 WBC (Bld) 9.4 % 0-10 [facility] Neutrophil percentageOrdered By: [facility] Martín on 01-11-2025 Neutrophils/100 WBC (Bld) 68.3 % 47-70 [facility] No Panel InformationOrdered By: [facility] Martín on 01-11-2025 27 U/L 15-37 [facility] Nucleated red blood cell per centageOrdered By: [facility] Martín on 01-11-2025 Nucleated RBC/100 WBC (Bld) [Ratio] 0 % 0-5 [facility] Partial Thromboplast Timeon 01-11-2025 aPTT Coag (Bld) [Time] 64.4 s High 24.1-36.2 [facility] Comment on above: Order Comment: Comme nts: time sensitive hep gtt Performed By: #### L 300.4310 ####[facility] [address] [place], [place], [address] aPTT Coag (Bld) [Time] 76.9 s High 24.1-36.2 [facility] Comment on above: Performed By: #### L 300.4310 ####[facility] [address] [place], [place], [address] aPTT Coag (Bld) [Time] 53.2 s High 24.1-36.2 [facility] Comment on above: Order Comment: Comme nts: heparin gtt Performed By: #### L 300.4310 ####[facility] [address] [place], [address] aPTT Coag (Bld) [Time] 28.3 s Normal 24.1-36.2 [facility] Comment on above: Performed By: #### L 300.3900, L300.4310 ####[facility] [address] [place], [address] Platelet countOrdered By: Lsisa Resendiz on 01-11-2025 Platelets (Bld) [#/Vol] 158 10*3/uL 150-450 [facility] Potassium measurementOrdered By: Sommer Resendiz on 01-11-2025 Potassium [Moles/Vol] 4.2 mmol/L 3.5-5.1 [facility] Prothrombin Time w/INRon INR Coag (PPP) [Relative time] 1.0 {INR} Normal [facility] Comment on above: Performed By: #### L 300.3900, L300.4310 ####[facility] [address] [place], [address] PT Coag (PPP) [Time] 12.9 s Normal 11.7-14.9 [facility] Comment on above: Performed By: #### L 300.3900, L300.4310 ####[facility] [address] [place], [address] Prothrombin timeOrdered By: Benjy Flores on 01-11-2025 PT Coag (PPP) [Time] 12.9 s 11.7-14.9 [facility] RBC Auto (Bld) [#/Vol]Ordere d By: Sommer Resendiz on 01-11-2025 RBC (Bld) [#/Vol] 4.73 10*6/uL 4.2-5.4 [facility] RESPIRATORY PANEL MOLECULARo n 01-11-2025 RP PANEL Normal [facility] Comment on above: Performed By: #### M 100.638 ####[facility] [address] [place], [address] Sblf-oad-6Gdzbrhx By: Sommer Resendiz on 01-11-2025 SARS-CoV-2 (COVID-19) RNA JAYDON+probe Ql (Unsp spec) [facility] Serum anion gap measurementO rdered By: Sommer Resendiz on 01-11-2025 Anion gap [Moles/Vol] 8 mmol/L 5-15 [facility] Serum globulin measurementOr dered By: Sommer Resendiz on 01-11-2025 Globulin (S) [Mass/Vol] 4.0 g/dL 2.2-4.2 [facility] Serum or plasma alanine pizarro otransferase (ALT) measurementOrdered By: Sommer Resendiz on 01-11-2025 ALT [Catalytic activity/Vol] 22 U/L 13-56 [facility] Serum or plasma albumin stefania urement (mass/volume)Ordered By: Sommer Resendiz on 01-11-2025 Albumin [Mass/Vol] 3.4 g/dL 3.2-5.0 [facility] Serum or plasma alkaline anthony sphatase measurementOrdered By: Sommer Resendiz on 01-11-2025 ALP [Catalytic activity/Vol] 182 U/L High 45-117 [facility] Serum or plasma calcium stefania urement (mass/volume)Ordered By: Sommer Resendiz on 01-11-2025 Calcium [Mass/Vol] 9.3 mg/dL 8.5-10.1 [facility] Serum or plasma creatinine m easurement (mass/volume)Ordered By: Sommer Resendiz on 01-11-2025 Creatinine [Mass/Vol] 1.06 mg/dL High 0.55-1.02 [facility] Comment on above: The validity of the calculated GFR & GFRAA in patients over 70 years has not been determined. Clinical correlation is essential. Serum or plasma urea nitroge n measurement (mass/volume)Ordered By: Sommer Resendiz on 01-11-2025 Urea nitrogen [Mass/Vol] 22 mg/dL High 7-18 [facility] Sodium levelOrdered By: Julianu mn Martín on 01-11-2025 Sodium [Moles/Vol] 135 mmol/L Low 136-145 [facility] Total proteinOrdered By: Julian umn Martín on 01-11-2025 Protein [Mass/Vol] 7.4 g/dL 6.4-8.2 [facility] Troponin IOrdered By: Sommer Resendiz on 01-11-2025 Troponin I 1688 pg/mL High 3.0-54.0 [facility] Comment on above: Critical Result(s) C alled at: 10:12:22 01/11/2025 by: Joana Salazra to Fatou. Results read back by same. Please Note: New Test Units and Gender Specific Reference Ranges. For more information see Policy Stat Procedure Bon[place]arte High Sensitivity Troponin (TNIH) and attachments. White blood cell (WBC) count Ordered By: Sommer Resendiz on 01-11-2025 WBC (Bld) [#/Vol] 5.2 10*3/uL 4.4-11.0 [facility] 12 Lead EKGon 01-10-2025 12 Lead EKG Normal [facility] BNP (brain natriuretic pepti de measurement)Ordered By: Benjy Flores on 01-10-2025 Natriuretic peptide B (Bld) [Mass/Vol] 411.9 pg/mL High 0-100 [facility] BNP,B-Type NATRIURETIC PEPTI Hodan 01-10-2025 Natriuretic peptide B (Bld) [Mass/Vol] 411.9 pg/mL High 0-100 [facility] Comment on above: Performed By: #### L 503.6620 ####[facility] [address] [place], [place], [id number] Basic Metabolic Profile (BMP )on 01-10-2025 BUN/CRE 20.4 RATIO High 10-20 [facility] Comment on above: Order Comment: 'TROP ' Serial specimen #1, #2 or #3: 1 Performed By: #### L 100.0100, L501.4020, L500.2500 ####[facility] [address] [place], [address] CA,Total 9.5 mg/dL Normal 8.5-10.1 [facility] Comment on above: Order Comment: 'TROP ' Serial specimen #1, #2 or #3: 1 Performed By: #### L 100.0100, L501.4020, L500.2500 ####[facility] [address] [place], [address] Chloride [Moles/Vol] 101 mmol/L Normal 98-107 [facility] Comment on above: Order Comment: 'TROP ' Serial specimen #1, #2 or #3: 1 Performed By: #### L 100.0100, L501.4020, L500.2500 ####[facility] [address] [place], [address] CO2 [Moles/Vol] 22.0 mmol/L Normal 21.0-32.0 [facility] Comment on above: Order Comment: 'TROP ' Serial specimen #1, #2 or #3: 1 Performed By: #### L 100.0100, L501.4020, L500.2500 ####[facility] [address] [place], [address] Creatinine [Mass/Vol] 1.08 mg/dL High 0.55-1.02 [facility] Comment on above: Order Comment: 'TROP ' Serial specimen #1, #2 or #3: 1 Result Comment: The validity of the calculated GFR GFRAA in patients over70 years has not been determined. Clinical correlation isessential. Performed By: #### L 100.0100, L501.4020, L500.2500 ####[facility] [address] [place], [address] ECRCL 40.02 ml/min Normal [facility] Comment on above: Order Comment: 'TROP ' Serial specimen #1, #2 or #3: 1 Performed By: #### L 100.0100, L501.4020, L500.2500 ####[facility] [address] [place], [address] EST GFR - AA 64 mL/min Normal >60 [facility] Comment on above: Order Comment: 'TROP ' Serial specimen #1, #2 or #3: 1 Result Comment: Afri can [place] GFR Calc Performed By: #### L 100.0100, L501.4020, L500.2500 ####[facility] [address] [place], [address] GAP 11 Normal 5-15 [facility] Comment on above: Order Comment: 'TROP ' Serial specimen #1, #2 or #3: 1 Performed By: #### L 100.0100, L501.4020, L500.2500 ####[facility] [address] [place], [address] GFR/1.73 sq M.predicted among non-blacks MDRD (S/P/Bld) [Vol rate/Area] 53 mL/min/{1.73_m2} Low >60 [facility] Comment on above: Order Comment: 'TROP ' Serial specimen #1, #2 or #3: 1 Result Comment: Non- GFR Calc Performed By: #### L 100.0100, L501.4020, L500.2500 ####[facility] [address] [place], [address] Glucose [Mass/Vol] 114 mg/dL High 74-106 [facility] Comment on above: Order Comment: 'TROP ' Serial specimen #1, #2 or #3: 1 Result Comment: Fast ing Glucose result from 100 to 125 mg/dLsuggests IMPAIRED HOMEOSTASIS per A.D.A. criteria. Performed By: #### L 100.0100, L501.4020, L500.2500 ####[facility] [address] [place], [address] Potassium [Moles/Vol] 3.8 mmol/L Normal 3.5-5.1 [facility] Comment on above: Order Comment: 'TROP ' Serial specimen #1, #2 or #3: 1 Performed By: #### L 100.0100, L501.4020, L500.2500 ####[facility] [address] [place], [address] Sodium [Moles/Vol] 134 mmol/L Low 136-145 [facility] Comment on above: Order Comment: 'TROP ' Serial specimen #1, #2 or #3: 1 Performed By: #### L 100.0100, L501.4020, L500.2500 ####[facility] [address] [place], [address] Urea nitrogen [Mass/Vol] 22 mg/dL High 7-18 [facility] Comment on above: Order Comment: 'TROP ' Serial specimen #1, #2 or #3: 1 Performed By: #### L 100.0100, L501.4020, L500.2500 ####[facility] [address] [place], [address] Brain/Head without Contrasto n 01-10-2024 Brain/Head without Contrast Normal [facility] CBC W/Diff, Automatedon -12 21-2024 Absolute Lymph 0.72 X10 3/uL Low 0.83-4.51 [facility] Comment on above: Performed By: #### L 100.0100, L501.4020, L500.2500 ####[facility] [address] [place], [address] Absolute Neut 5.9 X10 3/uL Normal 2.0-7.7 [facility] Comment on above: Performed By: #### L 100.0100, L501.4020, L500.2500 ####[facility] [address] [place], [address] Basophils/100 WBC (Bld) 0.4 % Normal 0-1 [facility] Comment on above: Performed By: #### L 100.0100, L501.4020, L500.2500 ####[facility] [address] [place], [address] Eosinophils/100 WBC (Bld) 1.4 % Normal 0-5 [facility] Comment on above: Performed By: #### L 100.0100, L501.4020, L500.2500 ####[facility] [address] [place], [address] Erythrocyte distribution width (RBC) [Ratio] 14.9 % High 11.6-14.6 [facility] Comment on above: Performed By: #### L 100.0100, L501.4020, L500.2500 ####[facility] [address] [place], [address] Hematocrit (Bld) [Volume fraction] 40.1 % Normal 37-47 [facility] Comment on above: Performed By: #### L 100.0100, L501.4020, L500.2500 ####[facility] [address] [place], [address] Hemoglobin (Bld) [Mass/Vol] 13.1 g/dL Normal 12.0-15.0 [facility] Comment on above: Performed By: #### L 100.0100, L501.4020, L500.2500 ####[facility] [address] [place], [address] IG% 0.400 Normal 0.0-0.9 [facility] Comment on above: Result Comment: IG% - Immature Granulocytes (promyelocytes, myelocytes andmetamyelocytes) > 1% indicates that a LEFT SHIFT is Present. Performed By: #### L 100.0100, L501.4020, L500.2500 ####[facility] [address] [place], [address] Lymphocytes/100 WBC (Bld) 9.8 % Low 19-41 [facility] Comment on above: Performed By: #### L 100.0100, L501.4020, L500.2500 ####[facility] [address] [place], [address] MCH (RBC) [Entitic mass] 26.6 pg Low 27.0-32.0 [facility] Comment on above: Performed By: #### L 100.0100, L501.4020, L500.2500 ####[facility] [address] [place], [address] MCHC (RBC) [Mass/Vol] 32.7 g/dL Normal 32-36 [facility] Comment on above: Performed By: #### L 100.0100, L501.4020, L500.2500 ####[facility] [address] [place], [address] MCV (RBC) [Entitic vol] 81.5 fL Normal 81-99 [facility] Comment on above: Performed By: #### L 100.0100, L501.4020, L500.2500 ####[facility] [address] [place], [address] Monocytes/100 WBC (Bld) 8.0 % Normal 0-10 [facility] Comment on above: Performed By: #### L 100.0100, L501.4020, L500.2500 ####[facility] [address] [place], [address] Neutrophils/100 WBC (Bld) 80.0 % High 47-70 [facility] Comment on above: Performed By: #### L 100.0100, L501.4020, L500.2500 ####[facility] [address] [place], [address] Nucleated RBC (Bld) [#/Vol] 0 10*3/uL Normal 0-5 [facility] Comment on above: Performed By: #### L 100.0100, L501.4020, L500.2500 ####[facility] [address] [place], [address] Platelet mean volume (Bld) [Entitic vol] 9.8 fL Normal 6.2-12.0 [facility] Comment on above: Performed By: #### L 100.0100, L501.4020, L500.2500 ####[facility] [address] [place], [address] Platelets (Bld) [#/Vol] 147 10*3/uL Low 150-450 [facility] Comment on above: Performed By: #### L 100.0100, L501.4020, L500.2500 ####[facility] [address] [place], [address] RBC (Bld) [#/Vol] 4.92 10*6/uL Normal 4.2-5.4 [facility] Comment on above: Performed By: #### L 100.0100, L501.4020, L500.2500 ####[facility] [address] [place], [address] RDW SD 44.3 fl High 35.1-43.9 [facility] Comment on above: Performed By: #### L 100.0100, L501.4020, L500.2500 ####[facility] [address] [place], [address] WBC (Bld) [#/Vol] 7.4 10*3/uL Normal 4.4-11.0 [facility] Comment on above: Performed By: #### L 100.0100, L501.4020, L500.2500 ####[facility] [address] [place], [address] Chest 1 View (Portable)on Chest 1 View (Portable) Normal [facility] Emergency Department Summary on 01-10-2025 Emergency Department Summary Normal [facility] H AND P Exam - Hospitaliston 01-10-2025 H&P Exam - Hospitalist Normal [facility] L501.4020on 01-10-2025 TROPONIN-I HS 2243 pg/mL Invalid Interpretation Code 3.0-54.0 [facility] Comment on above: Order Comment: 'TROP ' Serial specimen #1, #2 or #3: 1 Result Comment: Crit ical Result(s) Called at: :15:33 01/10/2025 by: BERYL to Juventino Rodrigez. Results read back by same. Please Note: New Test Units and Gender Specific Reference Ranges. For more information see Policy Stat Procedure Bon[place]arte High Sensitivity Troponin (TNIH) and attachments. Performed By: #### L 100.0100, L501.4020, L500.2500 ####[facility] [address] [place], [address] Magnesium measurementOrdered By: Sommer Resendiz on 01-10-2025 Magnesium [Mass/Vol] 2.0 mg/dL 1.6-2.6 [facility] Respiratory pathogens detect ion panel by molecular detection methodOrdered By: Sommer Resendiz on 01-10-2025 Respiratory pathogens DNA and RNA panel JAYDON+probe (Resp) [facility] Pulmonary Visit Reporton Pulmonary Visit Report Normal [facility] Cardiology Visit Reporton Cardiology Visit Report Normal [facility] 12 Lead EKGon 12-17-2024 12 Lead EKG Normal [facility] Basic Metabolic Profile (BMP )on 12-17-2024 BUN/CRE 24.1 RATIO High 10-20 [facility] Comment on above: Order Comment: 1Y Performed By: #### L 503.6005, L500.2500, L100.0500, L501.5425 ####[facility] [address] [place], [address] CA,Total 9.0 mg/dL Normal 8.5-10.1 [facility] Comment on above: Order Comment: 1Y Performed By: #### L 503.6005, L500.2500, L100.0500, L501.5425 ####[facility] [address] [place], [address] Chloride [Moles/Vol] 106 mmol/L Normal 98-107 [facility] Comment on above: Order Comment: 1Y Performed By: #### L 503.6005, L500.2500, L100.0500, L501.5425 ####[facility] [address] [place], [address] CO2 [Moles/Vol] 27.0 mmol/L Normal 21.0-32.0 [facility] Comment on above: Order Comment: 1Y Performed By: #### L 503.6005, L500.2500, L100.0500, L501.5425 ####[facility] [address] [place], [address] Creatinine [Mass/Vol] 1.08 mg/dL High 0.55-1.02 [facility] Comment on above: Order Comment: 1Y Result Comment: The validity of the calculated GFR GFRAA in patients over70 years has not been determined. Clinical correlation isessential. Performed By: #### L 503.6005, L500.2500, L100.0500, L501.5425 ####[facility] [address] [place], [address] ECRCL 40.75 ml/min Normal [facility] Comment on above: Order Comment: 1Y Performed By: #### L 503.6005, L500.2500, L100.0500, L501.5425 ####[facility] [address] [place], [address] EST GFR - AA 64 mL/min Normal >60 [facility] Comment on above: Order Comment: 1Y Result Comment: Afri can Argentine GFR Calc Performed By: #### L 503.6005, L500.2500, L100.0500, L501.5425 ####[facility] [address] [place], [address] GAP 7 Normal 5-15 [facility] Comment on above: Order Comment: 1Y Performed By: #### L 503.6005, L500.2500, L100.0500, L501.5425 ####[facility] [address] [place], [address] GFR/1.73 sq M.predicted among non-blacks MDRD (S/P/Bld) [Vol rate/Area] 53 mL/min/{1.73_m2} Low >60 [facility] Comment on above: Order Comment: 1Y Result Comment: Non- GFR Calc Performed By: #### L 503.6005, L500.2500, L100.0500, L501.5425 ####[facility] [address] [place], [address] Glucose [Mass/Vol] 96 mg/dL Normal 74-106 [facility] Comment on above: Order Comment: 1Y Performed By: #### L 503.6005, L500.2500, L100.0500, L501.5425 ####[facility] [address] [place], [address] Potassium [Moles/Vol] 4.4 mmol/L Normal 3.5-5.1 [facility] Comment on above: Order Comment: 1Y Performed By: #### L 503.6005, L500.2500, L100.0500, L501.5425 ####[facility] [address] [place], [address] Sodium [Moles/Vol] 140 mmol/L Normal 136-145 [facility] Comment on above: Order Comment: 1Y Performed By: #### L 503.6005, L500.2500, L100.0500, L501.5425 ####[facility] [address] [place], [address] Urea nitrogen [Mass/Vol] 26 mg/dL High 7-18 [facility] Comment on above: Order Comment: 1Y Performed By: #### L 503.6005, L500.2500, L100.0500, L501.5425 ####[facility] [address] [place], [address] CBC-Complete Blood Cnt No Di ffon 01-29-2025 Erythrocyte distribution width (RBC) [Ratio] 15.8 % High 11.6-14.6 [facility] Comment on above: Performed By: #### L 503.6005, L500.2500, L100.0500, L501.5425 ####[facility] [address] [place], [address] Hematocrit (Bld) [Volume fraction] 35.3 % Low 37-47 [facility] Comment on above: Performed By: #### L 503.6005, L500.2500, L100.0500, L501.5425 ####[facility] [address] [place], [address] Hemoglobin (Bld) [Mass/Vol] 11.3 g/dL Low 12.0-15.0 [facility] Comment on above: Performed By: #### L 503.6005, L500.2500, L100.0500, L501.5425 ####[facility] [address] [place], [address] MCH (RBC) [Entitic mass] 27.4 pg Normal 27.0-32.0 [facility] Comment on above: Performed By: #### L 503.6005, L500.2500, L100.0500, L501.5425 ####[facility] [address] [place], [address] MCHC (RBC) [Mass/Vol] 32.0 g/dL Normal 32-36 [facility] Comment on above: Performed By: #### L 503.6005, L500.2500, L100.0500, L501.5425 ####[facility] [address] [place], [address] MCV (RBC) [Entitic vol] 85.5 fL Normal 81-99 [facility] Comment on above: Performed By: #### L 503.6005, L500.2500, L100.0500, L501.5425 ####[facility] [address] [place], [address] Platelet mean volume (Bld) [Entitic vol] 9.9 fL Normal 6.2-12.0 [facility] Comment on above: Performed By: #### L 503.6005, L500.2500, L100.0500, L501.5425 ####[facility] [address] [place], [address] Platelets (Bld) [#/Vol] 230 10*3/uL Normal 150-450 [facility] Comment on above: Performed By: #### L 503.6005, L500.2500, L100.0500, L501.5425 ####[facility] [address] [place], [address] RBC (Bld) [#/Vol] 4.13 10*6/uL Low 4.2-5.4 [facility] Comment on above: Performed By: #### L 503.6005, L500.2500, L100.0500, L501.5425 ####[facility] [address] [place], [address] RDW SD 49.2 fl High 35.1-43.9 [facility] Comment on above: Performed By: #### L 503.6005, L500.2500, L100.0500, L501.5425 ####[facility] [address] [place], [address] WBC (Bld) [#/Vol] 8.8 10*3/uL Normal 4.4-11.0 [facility] Comment on above: Performed By: #### L 503.6005, L500.2500, L100.0500, L501.5425 ####[facility] [address] [place], [address] Carbon dioxide measurementOr dered By: Jeffy Willoguhby on 12-17-2024 CO2 [Moles/Vol] 27.0 mmol/L 21.0-32.0 [facility] Chest PA and Lateralon 12-17 Chest PA and Lateral Normal [facility] Chloride measurementOrdered By: Jeffyaura Willoughby on 12-17-2024 Chloride [Moles/Vol] 106 mmol/L 98-107 [facility] Emergency Department Summary on 12-17-2024 Emergency Department Summary Normal [facility] Erythrocyte distribution wid th [facility]Ordered By: [facility] Erythrocyte distribution width (RBC) [Ratio] 15.8 % High 11.6-14.6 [facility] Erythrocyte distribution wid th standard deviationOrdered By: [facility] on 12-17-2024 Erythrocyte distribution width (RBC) [Ratio] 49.2 fl High 35.1-43.9 [facility] Glomerular filtration rate ( GFR) estimationOrdered By: [facility] on 12-17-2024 GFR/1.73 sq M.predicted among non-blacks MDRD (S/P/Bld) [Vol rate/Area] 53 mL/min/{1.73_m2} Low >60 [facility] Glucose measurementOrdered B y: Jeffy Willoughby on 12-17-2024 Glucose [Mass/Vol] 96 mg/dL 74-106 [facility] Hematocrit Auto (Bld) [Volum e fraction]Ordered By: [facility] 12-17-[facility] Hematocrit (Bld) [Volume fraction] 35.3 % Low 37-47 [facility] Hemoglobin measurementOrdere d By: Jeffyaura Willoughby on 12-17-2024 Hemoglobin (Bld) [Mass/Vol] 11.3 g/dL Low 12.0-15.0 [facility] L501.4020on 12-17-2024 TROPONIN-I HS 23 pg/mL Normal 3.0-54.0 [facility] Comment on above: Result Comment: Stacy pringle Note: New Test Units and Gender Specific Reference Ranges. For more information see Policy Stat Procedure [place]arte High Sensitivity Troponin (TNIH) and attachments. Performed By: #### L 501.4020 ####[facility] [address] [place], [address] L501.5425on 12-17-2024 TROPONIN-I HS 24 pg/mL Normal 3.0-54.0 [facility] Comment on above: Order Comment: 1Y Result Comment: Stacy pringle Note: New Test Units and Gender Specific Reference Ranges. For more information see Policy Stat Procedure Bon[place]arte High Sensitivity Troponin (TNIH) and attachments. Performed By: #### L 503.6005, L500.2500, L100.0500, L501.5425 ####[facility] [address] [place], [address] Lactic Acidon 12-17-2024 Lactate [Moles/Vol] 1.5 mmol/L Normal 0.4-1.9 [facility] Comment on above: Order Comment: Y Performed By: #### L 503.6005, L500.2500, L100.0500, L501.5425 ####[facility] [address] [place], [place], [address] MCV (mean corpuscular volume ) determinationOrdered By: Jeffyaura Willoughby on 12-17-2024 MCV (RBC) [Entitic vol] 85.5 fL 81-99 [facility] Mean corpuscular hemoglobin (MCH) determinationOrdered By: Jeffy Willoughby on 12-17-2024 MCH (RBC) [Entitic mass] 27.4 pg 27.0-32.0 [facility] Platelet [facility]Ordered By: [facility] Platelets (Bld) [#/Vol] 230 10*3/uL 150-450 [facility] Potassium measurementOrdered By: Jeffy Willoughby on 12-17-2024 Potassium [Moles/Vol] 4.4 mmol/L 3.5-5.1 [facility] RBC Auto (Bld) [#/Vol]Ordere d By: Jeffyaura Willoughby on 12-17-2024 RBC (Bld) [#/Vol] 4.13 10*6/uL Low 4.2-5.4 [facility] Serum or plasma calcium stefania urement (mass/volume)Ordered By: Jeffyaura Willoughby on 12-17-2024 Calcium [Mass/Vol] 9.0 mg/dL 8.5-10.1 [facility] Serum or plasma creatinine m easurement (mass/volume)Ordered By: Jeffy Willoughby on 12-17-2024 Creatinine [Mass/Vol] 1.08 mg/dL High 0.55-1.02 [facility] Serum or plasma urea nitroge n measurement (mass/volume)Ordered By: Jeffy Willoughby on 12-17-2024 Urea nitrogen [Mass/Vol] 26 mg/dL High 7-18 [facility] Sodium levelOrdered By: Jeffy Willoughby on 12-17-2024 Sodium [Moles/Vol] 140 mmol/L 136-145 [facility] Troponin IOrdered By: Jeffy rosario on 12-17-2024 Troponin I 23 pg/mL 3.0-54.0 [facility] White blood cell (WBC) count Ordered By: Jeffy Willoughby on 12-17-2024 WBC (Bld) [#/Vol] 8.8 10*3/uL 4.4-11.0 [facility] 12 Lead EKGon 12-11-2024 12 Lead EKG Normal [facility] Bilirubin, totalOrdered By: Kofi Weiner on 12-11-2024 Bilirubin [Mass/Vol] 0.30 mg/dL 0.20-1.00 [facility] CBC-Complete Blood Cnt No Di ffon 12-11-2024 Erythrocyte distribution width (RBC) [Ratio] 15.4 % High 11.6-14.6 [facility] Comment on above: Performed By: #### L 100.0500, L500.4050 ####[facility] [address] [place], [place], [address] Hematocrit (Bld) [Volume fraction] 35.3 % Low 37-47 [facility] Comment on above: Performed By: #### L 100.0500, L500.4050 ####[facility] [address] [place], [address] Hemoglobin (Bld) [Mass/Vol] 11.2 g/dL Low 12.0-15.0 [facility] Comment on above: Performed By: #### L 100.0500, L500.4050 ####[facility] [address] [place], [address] MCH (RBC) [Entitic mass] 26.4 pg Low 27.0-32.0 [facility] Comment on above: Performed By: #### L 100.0500, L500.4050 ####[facility] [address] [place], [address] MCHC (RBC) [Mass/Vol] 31.7 g/dL Low 32-36 [facility] Comment on above: Performed By: #### L 100.0500, L500.4050 ####[facility] [address] [place], [address] MCV (RBC) [Entitic vol] 83.3 fL Normal 81-99 [facility] Comment on above: Performed By: #### L 100.0500, L500.4050 ####[facility] [address] [place], [address] Platelet mean volume (Bld) [Entitic vol] 10.0 fL Normal 6.2-12.0 [facility] Comment on above: Performed By: #### L 100.0500, L500.4050 ####[facility] [address] [place], [address] Platelets (Bld) [#/Vol] 197 10*3/uL Normal 150-450 [facility] Comment on above: Performed By: #### L 100.0500, L500.4050 ####[facility] [address] [place], [address] RBC (Bld) [#/Vol] 4.24 10*6/uL Normal 4.2-5.4 [facility] Comment on above: Performed By: #### L 100.0500, L500.4050 ####[facility] [address] [place], [address] RDW SD 46.5 fl High 35.1-43.9 [facility] Comment on above: Performed By: #### L 100.0500, L500.4050 ####[facility] [address] [place], [address] WBC (Bld) [#/Vol] 7.7 10*3/uL Normal 4.4-11.0 [facility] Comment on above: Performed By: #### L 100.0500, L500.4050 ####[facility] [address] [place], [address] Carbon dioxide measurementOr dered By: Kofi Weiner on 12-11-2024 CO2 [Moles/Vol] 24.0 mmol/L 21.0-32.0 [facility] Cardiac Cath Diagnosticon Cardiac Cath Diagnostic Normal [facility] Chloride measurementOrdered By: Kofi Weiner on 12-11-2024 Chloride [Moles/Vol] 103 mmol/L 98-107 [facility] Comprehensive Metabolic Prof ilon 12-11-2024 Albumin [Mass/Vol] 3.0 g/dL Low 3.2-5.0 [facility] Comment on above: Performed By: #### L 100.0500, L500.4050 ####[facility] [address] [place], [address] Albumin/Globulin [Mass ratio] 0.9 {ratio} Normal 0.9-2.4 [facility] Comment on above: Performed By: #### L 100.0500, L500.4050 ####[facility] [address] [place], [address] ALK P 123 U/L High 45-117 [facility] Comment on above: Performed By: #### L 100.0500, L500.4050 ####[facility] [address] [place], [address] ALT [Catalytic activity/Vol] 12 U/L Low 13-56 [facility] Comment on above: Performed By: #### L 100.0500, L500.4050 ####[facility] [address] [place], [address] AST [Catalytic activity/Vol] 13 U/L Low 15-37 [facility] Comment on above: Performed By: #### L 100.0500, L500.4050 ####[facility] [address], [address] Bilirubin [Mass/Vol] 0.30 mg/dL Normal 0.20-1.00 [facility] Comment on above: Result Comment: For patients on eltrombopag therapy, use of Dimension Bonaparte TBIL is not recommended. Performed By: #### L 100.0500, L500.4050 ####[facility] [address] [place], [address] BUN/CRE 20.3 RATIO High 10-20 [facility] Comment on above: Performed By: #### L 100.0500, L500.4050 ####[facility] [address] [place], [address] CA,Total 8.9 mg/dL Normal 8.5-10.1 [facility] Comment on above: Performed By: #### L 100.0500, L500.4050 ####[facility] [address] [place], [address] Chloride [Moles/Vol] 103 mmol/L Normal 98-107 [facility] Comment on above: Performed By: #### L 100.0500, L500.4050 ####[facility] [address] [place], [address] CO2 [Moles/Vol] 24.0 mmol/L Normal 21.0-32.0 [facility] Comment on above: Performed By: #### L 100.0500, L500.4050 ####[facility] [address] [place], [address] Creatinine [Mass/Vol] 1.18 mg/dL High 0.55-1.02 [facility] Comment on above: Result Comment: The validity of the calculated GFR GFRAA in patients over70 years has not been determined. Clinical correlation isessential. Performed By: #### L 100.0500, L500.4050 ####[facility] [address] [place], [address] ECRCL 36.07 ml/min Normal [facility] Comment on above: Performed By: #### L 100.0500, L500.4050 ####[facility] [address] [place], [address] EST GFR - AA 58 mL/min Low >60 [facility] Comment on above: Result Comment: Afri can Argentine GFR Calc Performed By: #### L 100.0500, L500.4050 ####[facility] [address] [place], [address] GAP 8 Normal 5-15 [facility] Comment on above: Performed By: #### L 100.0500, L500.4050 ####[facility] [address] [place], [address] GFR/1.73 sq M.predicted among non-blacks MDRD (S/P/Bld) [Vol rate/Area] 48 mL/min/{1.73_m2} Low >60 [facility] Comment on above: Result Comment: Non- GFR Calc Performed By: #### L 100.0500, L500.4050 ####[facility] [address] [place], [address] Globulin (S) [Mass/Vol] 3.4 g/dL Normal 2.2-4.2 [facility] Comment on above: Performed By: #### L 100.0500, L500.4050 ####[facility] [address] [place], [address] Glucose [Mass/Vol] 98 mg/dL Normal 74-106 [facility] Comment on above: Performed By: #### L 100.0500, L500.4050 ####[facility] [address] [place], [address] Potassium [Moles/Vol] 4.0 mmol/L Normal 3.5-5.1 [facility] Comment on above: Performed By: #### L 100.0500, L500.4050 ####[facility] [address] [place], [address] Sodium [Moles/Vol] 135 mmol/L Low 136-145 [facility] Comment on above: Performed By: #### L 100.0500, L500.4050 ####[facility] [address] [place], [address] T PROT 6.4 g/dL Normal 6.4-8.2 [facility] Comment on above: Performed By: #### L 100.0500, L500.4050 ####[facility] [address] [place], [address] Urea nitrogen [Mass/Vol] 24 mg/dL High 7-18 [facility] Comment on above: Performed By: #### L 100.0500, L500.4050 ####[facility] [address] [place], [address] Discharge Instructionon 11-20 Discharge Instruction Normal [facility] Erythrocyte distribution wid th ratioOrdered By: Kofi Weiner on 12-11-2024 Erythrocyte distribution width (RBC) [Ratio] 15.4 % High 11.6-14.6 [facility] Erythrocyte distribution wid th standard deviationOrdered By: Kofi Weiner on 12-11-2024 Erythrocyte distribution width (RBC) [Ratio] 46.5 fl High 35.1-43.9 [facility] Glomerular filtration rate ( GFR) estimationOrdered By: Kofi Weiner on 12-11-2024 GFR/1.73 sq M.predicted among non-blacks MDRD (S/P/Bld) [Vol rate/Area] 48 mL/min/{1.73_m2} Low >60 [facility] Glucose measurementOrdered B y: Kofi Weiner on 12-11-2024 Glucose [Mass/Vol] 98 mg/dL 74-106 [facility] Hematocrit Auto (Bld) [Volum e fraction]Ordered By: Kofi Weiner on 12-11-2024 Hematocrit (Bld) [Volume fraction] 35.3 % Low 37-47 [facility] Hemoglobin measurementOrdere d By: Kofi Weiner on 12-11-2024 Hemoglobin (Bld) [Mass/Vol] 11.2 g/dL Low 12.0-15.0 [facility] MCV (mean corpuscular volume ) determinationOrdered By: Kofi Weiner on 12-11-2024 MCV (RBC) [Entitic vol] 83.3 fL 81-99 [facility] Mean corpuscular hemoglobin (MCH) determinationOrdered By: Kofi Weiner on 12-11-2024 MCH (RBC) [Entitic mass] 26.4 pg Low 27.0-32.0 [facility] No Panel InformationOrdered By: Kofi Weiner on 12-11-2024 13 U/L Low 15-37 [facility] Platelet countOrdered By: Kacie Weiner on 12-11-2024 Platelets (Bld) [#/Vol] 197 10*3/uL 150-450 [facility] Potassium measurementOrdered By: Kofi Weiner on 12-11-2024 Potassium [Moles/Vol] 4.0 mmol/L 3.5-5.1 [facility] RBC Auto (Bld) [#/Vol]Ordere d By: Kofi Weiner on 12-11-2024 RBC (Bld) [#/Vol] 4.24 10*6/uL 4.2-5.4 [facility] Serum globulin measurementOr dered By: Kofi Weiner on 12-11-2024 Globulin (S) [Mass/Vol] 3.4 g/dL 2.2-4.2 [facility] Serum or plasma alanine pizarro otransferase (ALT) measurementOrdered By: Kofi Weiner on 12-11-2024 ALT [Catalytic activity/Vol] 12 U/L Low 13-56 [facility] Serum or plasma albumin stefania urement (mass/volume)Ordered By: Kofi Weiner on 12-11-2024 Albumin [Mass/Vol] 3.0 g/dL Low 3.2-5.0 [facility] Serum or plasma alkaline anthony sphatase measurementOrdered By: Kofi Weiner on 12-11-2024 ALP [Catalytic activity/Vol] 123 U/L High 45-117 [facility] Serum or plasma calcium stefania urement (mass/volume)Ordered By: Kofi Weiner on 12-11-2024 Calcium [Mass/Vol] 8.9 mg/dL 8.5-10.1 [facility] Serum or plasma creatinine m easurement (mass/volume)Ordered By: Kofi Weiner on 12-11-2024 Creatinine [Mass/Vol] 1.18 mg/dL High 0.55-1.02 [facility] Serum or plasma urea nitroge n measurement (mass/volume)Ordered By: Kofi Weiner on 12-11-2024 Urea nitrogen [Mass/Vol] 24 mg/dL High 7-18 [facility] Sodium levelOrdered By: Jose Weiner on 12-11-2024 Sodium [Moles/Vol] 135 mmol/L Low 136-145 [facility] Stool Occult Blood iFOBon STOB Normal [facility] Comment on above: Performed By: #### M 100.7900 ####[facility] [address] [place], [address] Stool gastrointestinal hemog lobin detection by immunologic methodOrdered By: Trina Tyler on 12-11-2024 Lower GI hemoglobin IA Ql (Stl) [facility] Total proteinOrdered By: Billy Weiner on 12-11-2024 Protein [Mass/Vol] 6.4 g/dL 6.4-8.2 [facility] White blood cell (WBC) count Ordered By: Kofi Weiner on 12-11-2024 WBC (Bld) [#/Vol] 7.7 10*3/uL 4.4-11.0 [facility] 12 Lead EKGon 12-10-2024 12 Lead EKG Normal [facility] 12 Lead EKG Normal [facility] Absolute lymphocyte countOrd ered By: Trina Tyler on 12-10-2024 Lymphocytes Auto (Unsp spec) [#/Vol] 0.76 10*3/uL Low 0.83-4.51 [facility] Automated lymphocyte count a s percentage of total leukocytesOrdered By: Trina Tyler on 12-10-2024 Lymphocytes/100 WBC Auto (Unsp spec) 10.6 % Low 19-41 [facility] Basic Metabolic Profile (BMP )on 12-10-2024 BUN/CRE 22.3 RATIO High 10-20 [facility] Comment on above: Performed By: #### L 500.2500, L501.9520, L500.4100, L100.0100 ####[facility] [address] [place], [address] CA,Total 9.2 mg/dL Normal 8.5-10.1 [facility] Comment on above: Performed By: #### L 500.2500, L501.9520, L500.4100, L100.0100 ####[facility] [address] [place], [address] Chloride [Moles/Vol] 103 mmol/L Normal 98-107 [facility] Comment on above: Performed By: #### L 500.2500, L501.9520, L500.4100, L100.0100 ####[facility] [address] [place], [address] CO2 [Moles/Vol] 26.0 mmol/L Normal 21.0-32.0 [facility] Comment on above: Performed By: #### L 500.2500, L501.9520, L500.4100, L100.0100 ####[facility] [address] [place], [address] Creatinine [Mass/Vol] 1.03 mg/dL High 0.55-1.02 [facility] Comment on above: Result Comment: The validity of the calculated GFR GFRAA in patients over70 years has not been determined. Clinical correlation isessential. Performed By: #### L 500.2500, L501.9520, L500.4100, L100.0100 ####[facility] [address] [place], [address] ECRCL 41.32 ml/min Normal [facility] Comment on above: Performed By: #### L 500.2500, L501.9520, L500.4100, L100.0100 ####[facility] [address] [place], [address] EST GFR - AA 68 mL/min Normal >60 [facility] Comment on above: Result Comment: Afri can Argentine GFR Calc Performed By: #### L 500.2500, L501.9520, L500.4100, L100.0100 ####[facility] [address] [place], [address] GAP 9 Normal 5-15 [facility] Comment on above: Performed By: #### L 500.2500, L501.9520, L500.4100, L100.0100 ####[facility] [address] [place], [address] GFR/1.73 sq M.predicted among non-blacks MDRD (S/P/Bld) [Vol rate/Area] 56 mL/min/{1.73_m2} Low >60 [facility] Comment on above: Result Comment: Non- GFR Calc Performed By: #### L 500.2500, L501.9520, L500.4100, L100.0100 ####[facility] [address] [place], [address] Glucose [Mass/Vol] 85 mg/dL Normal 74-106 [facility] Comment on above: Performed By: #### L 500.2500, L501.9520, L500.4100, L100.0100 ####[facility] [address] [place], [address] Potassium [Moles/Vol] 3.8 mmol/L Normal 3.5-5.1 [facility] Comment on above: Performed By: #### L 500.2500, L501.9520, L500.4100, L100.0100 ####[facility] [address] [place], [address] Sodium [Moles/Vol] 138 mmol/L Normal 136-145 [facility] Comment on above: Performed By: #### L 500.2500, L501.9520, L500.4100, L100.0100 ####[facility] [address] [place], [address] Urea nitrogen [Mass/Vol] 23 mg/dL High 7-18 [facility] Comment on above: Performed By: #### L 500.2500, L501.9520, L500.4100, L100.0100 ####[facility] [address] [place], [address] Basophil percentageOrdered B y: Trina Tyler on 12-10-2024 Basophils/100 WBC (Bld) 0.7 % 0-1 [facility] CBC W/Diff, Automatedon 11-20 Absolute Lymph 0.76 X10 3/uL Low 0.83-4.51 [facility] Comment on above: Performed By: #### L 500.2500, L501.9520, L500.4100, L100.0100 ####[facility] [address] [place], [address] Absolute Neut 5.7 X10 3/uL Normal 2.0-7.7 [facility] Comment on above: Performed By: #### L 500.2500, L501.9520, L500.4100, L100.0100 ####[facility] [address] [place], [address] Basophils/100 WBC (Bld) 0.7 % Normal 0-1 [facility] Comment on above: Performed By: #### L 500.2500, L501.9520, L500.4100, L100.0100 ####[facility] [address] [place], [address] Eosinophils/100 WBC (Bld) 1.5 % Normal 0-5 [facility] Comment on above: Performed By: #### L 500.2500, L501.9520, L500.4100, L100.0100 ####[facility] [address] [place], [address] Erythrocyte distribution width (RBC) [Ratio] 15.3 % High 11.6-14.6 [facility] Comment on above: Performed By: #### L 500.2500, L501.9520, L500.4100, L100.0100 ####[facility] [address] [place], [address] Hematocrit (Bld) [Volume fraction] 37.9 % Normal 37-47 [facility] Comment on above: Performed By: #### L 500.2500, L501.9520, L500.4100, L100.0100 ####[facility] [address] [place], [address] Hemoglobin (Bld) [Mass/Vol] 12.2 g/dL Normal 12.0-15.0 [facility] Comment on above: Performed By: #### L 500.2500, L501.9520, L500.4100, L100.0100 ####[facility] [address] [place], [address] IG% 0.400 Normal 0.0-0.9 [facility] Comment on above: Result Comment: IG% - Immature Granulocytes (promyelocytes, myelocytes andmetamyelocytes) > 1% indicates that a LEFT SHIFT is Present. Performed By: #### L 500.2500, L501.9520, L500.4100, L100.0100 ####[facility] [address] [place], [address] Lymphocytes/100 WBC (Bld) 10.6 % Low 19-41 [facility] Comment on above: Performed By: #### L 500.2500, L501.9520, L500.4100, L100.0100 ####[facility] [address] [place], [address] MCH (RBC) [Entitic mass] 27.0 pg Normal 27.0-32.0 [facility] Comment on above: Performed By: #### L 500.2500, L501.9520, L500.4100, L100.0100 ####[facility] [address] [place], [address] MCHC (RBC) [Mass/Vol] 32.2 g/dL Normal 32-36 [facility] Comment on above: Performed By: #### L 500.2500, L501.9520, L500.4100, L100.0100 ####[facility] [address] [place], [address] MCV (RBC) [Entitic vol] 83.8 fL Normal 81-99 [facility] Comment on above: Performed By: #### L 500.2500, L501.9520, L500.4100, L100.0100 ####[facility] [address] [place], [address] Monocytes/100 WBC (Bld) 7.4 % Normal 0-10 [facility] Comment on above: Performed By: #### L 500.2500, L501.9520, L500.4100, L100.0100 ####[facility] [address] [place], [address] Neutrophils/100 WBC (Bld) 79.4 % High 47-70 [facility] Comment on above: Performed By: #### L 500.2500, L501.9520, L500.4100, L100.0100 ####[facility] [address] [place], [address] Nucleated RBC (Bld) [#/Vol] 0 10*3/uL Normal 0-5 [facility] Comment on above: Performed By: #### L 500.2500, L501.9520, L500.4100, L100.0100 ####[facility] [address] [place], [address] Platelet mean volume (Bld) [Entitic vol] 9.7 fL Normal 6.2-12.0 [facility] Comment on above: Performed By: #### L 500.2500, L501.9520, L500.4100, L100.0100 ####[facility] [address] [place], [address] Platelets (Bld) [#/Vol] 175 10*3/uL Normal 150-450 [facility] Comment on above: Performed By: #### L 500.2500, L501.9520, L500.4100, L100.0100 ####[facility] [address] [place], [address] RBC (Bld) [#/Vol] 4.52 10*6/uL Normal 4.2-5.4 [facility] Comment on above: Performed By: #### L 500.2500, L501.9520, L500.4100, L100.0100 ####[facility] [address] [place], [address] RDW SD 46.5 fl High 35.1-43.9 [facility] Comment on above: Performed By: #### L 500.2500, L501.9520, L500.4100, L100.0100 ####[facility] [address] [place], [address] WBC (Bld) [#/Vol] 7.2 10*3/uL Normal 4.4-11.0 [facility] Comment on above: Performed By: #### L 500.2500, L501.9520, L500.4100, L100.0100 ####[facility] [address] [place], [address] Consultation - Cardiologyon 12-10-2024 Consultation - Cardiology Normal [facility] Eosinophil percentageOrdered By: Trina Tyler on 12-10-2024 Eosinophils/100 WBC (Bld) 1.5 % 0-5 [facility] High density lipoprotein (HD L) measurementOrdered By: Trina Tyler on 12-10-2024 High density lipoprotein (HDL) measurement 49 mg/dL >40 [facility] Immature granulocytes/100 WB C Auto (Bld)Ordered By: Trina Tyler on 12-10-2024 Immature granulocytes/100 WBC (Bld) 0.400 % 0.0-0.9 [facility] Lipid Profileon 12-10-2024 Cholesterol [Mass/Vol] 189 mg/dL Normal [address] [facility] Comment on above: Result Comment: <200 mg/dL Desirable 200-240 mg/dL Borderline >240 mg/dL High Risk Performed By: #### L 500.2500, L501.9520, L500.4100, L100.0100 ####[facility] [address] [place], [address] Cholesterol in HDL [Mass/Vol] 49 mg/dL Normal [facility] Comment on above: Result Comment: The drugs N-Acetylcysteine and Metamizole may falselydepress this assay. Reference Range HDL <40 mg/dL Low HDL Cholesterol HDL >or= 60 mg/dL High HDL Cholesterol Performed By: #### L 500.2500, L501.9520, L500.4100, L100.0100 ####[facility] [address] [place], [address] Cholesterol in LDL [Mass/Vol] 119 mg/dL Normal 0-130 [facility] Comment on above: Performed By: #### L 500.2500, L501.9520, L500.4100, L100.0100 ####[facility] [address] [place], [address] Cholesterol in VLDL [Mass/Vol] 21 mg/dL Normal 5-40 [facility] Comment on above: Performed By: #### L 500.2500, L501.9520, L500.4100, L100.0100 ####[facility] [address] [place], [address] Triglyceride [Mass/Vol] 106 mg/dL Normal [facility] Comment on above: Result Comment: The drugs N-Acetylcysteine and Metamizole may falselydepress this assay.Serum Triglycerides Reference Interval Normal <150 mg/dL Borderline high 150 - 199 mg/dL High 200 - 499 mg/dL Very High > or = 500 mg/dL Performed By: #### L 500.2500, L501.9520, L500.4100, L100.0100 ####[facility] [address] [place], [address] Low density lipoprotein (LDL ) cholesterol measurementOrdered By: Trina Tyler on 12-10-2024 Low density lipoprotein (LDL) cholesterol measurement 119 mg/dL 0-130 [facility] Monocyte percentageOrdered B y: Trina Tyler on 12-10-2024 Monocytes/100 WBC (Bld) 7.4 % 0-10 [facility] Neutrophil percentageOrdered By: Trina Tyler on 12-10-2024 Neutrophils/100 WBC (Bld) 79.4 % High 47-70 [facility] Serum or plasma cholesterol measurement (mass/volume)Ordered By: Trina Tyler on 12-10-2024 Cholesterol [Mass/Vol] 189 mg/dL <200 [facility] Serum or plasma thyroid stim ulating hormone (TSH) measurement (units/volume)Ordered By: Trina Tyler on 12-10-2024 TSH Qn 0.715 uIU/mL 0.358-3.74 0 [facility] Thyroid Stim Hormone (TSH)on 12-10-2024 TSH 0.715 uIU/mL Normal 0.358-3.74 0 [facility] Comment on above: Performed By: #### L 500.2500, L501.9520, L500.4100, L100.0100 ####[facility] [address] [place], [address] Very low density lipoprotein (VLDL) cholesterol measurementOrdered By: Trina Tyler on 12-10-2024 Very low density lipoprotein (VLDL) cholesterol measurement 21 mg/dL 5-40 [facility] 12 Lead EKGon 12-09-2024 12 Lead EKG Normal [facility] 12 Lead EKG Normal [facility] 12 Lead EKG Normal [facility] Basic Metabolic Profile (BMP )on 12-09-2024 BUN/CRE 14.3 RATIO Normal 10-20 [facility] Comment on above: Order Comment: 1Y Performed By: #### L 501.5425, L501.5200, L500.2500, L100.0100 ####[facility] [address] [place], [address] CA,Total 9.8 mg/dL Normal 8.5-10.1 [facility] Comment on above: Order Comment: 1Y Performed By: #### L 501.5425, L501.5200, L500.2500, L100.0100 ####[facility] [address] [place], [address] Chloride [Moles/Vol] 104 mmol/L Normal 98-107 [facility] Comment on above: Order Comment: 1Y Performed By: #### L 501.5425, L501.5200, L500.2500, L100.0100 ####[facility] [address] [place], [address] CO2 [Moles/Vol] 26.0 mmol/L Normal 21.0-32.0 [facility] Comment on above: Order Comment: 1Y Performed By: #### L 501.5425, L501.5200, L500.2500, L100.0100 ####[facility] [address] [place], [address] Creatinine [Mass/Vol] 1.26 mg/dL High 0.55-1.02 [facility] Comment on above: Order Comment: 1Y Result Comment: The validity of the calculated GFR GFRAA in patients over70 years has not been determined. Clinical correlation isessential. Performed By: #### L 501.5425, L501.5200, L500.2500, L100.0100 ####[facility] [address] [place], [address] ECRCL 29.84 ml/min Normal [facility] Comment on above: Order Comment: 1Y Performed By: #### L 501.5425, L501.5200, L500.2500, L100.0100 ####[facility] [address] [place], [address] EST GFR - AA 54 mL/min Low >60 [facility] Comment on above: Order Comment: 1Y Result Comment: Afri can Argentine GFR Calc Performed By: #### L 501.5425, L501.5200, L500.2500, L100.0100 ####[facility] [address] [place], [address] GAP 8 Normal 5-15 [facility] Comment on above: Order Comment: 1Y Performed By: #### L 501.5425, L501.5200, L500.2500, L100.0100 ####[facility] [address] [place], [address] GFR/1.73 sq M.predicted among non-blacks MDRD (S/P/Bld) [Vol rate/Area] 45 mL/min/{1.73_m2} Low >60 [facility] Comment on above: Order Comment: 1Y Result Comment: Non- GFR Calc Performed By: #### L 501.5425, L501.5200, L500.2500, L100.0100 ####[facility] [address] [place], [address] Glucose [Mass/Vol] 118 mg/dL High 74-106 [facility] Comment on above: Order Comment: 1Y Result Comment: Fast ing Glucose result from 100 to 125 mg/dLsuggests IMPAIRED HOMEOSTASIS per A.D.A. criteria. Performed By: #### L 501.5425, L501.5200, L500.2500, L100.0100 ####[facility] [address] [place], [address] Potassium [Moles/Vol] 3.8 mmol/L Normal 3.5-5.1 [facility] Comment on above: Order Comment: 1Y Performed By: #### L 501.5425, L501.5200, L500.2500, L100.0100 ####[facility] [address] [place], [address] Sodium [Moles/Vol] 138 mmol/L Normal 136-145 [facility] Comment on above: Order Comment: 1Y Performed By: #### L 501.5425, L501.5200, L500.2500, L100.0100 ####[facility] [address] [place], [address] Urea nitrogen [Mass/Vol] 18 mg/dL Normal 7-18 [facility] Comment on above: Order Comment: 1Y Performed By: #### L 501.5425, L501.5200, L500.2500, L100.0100 ####[facility] [address] [place], [address] Brain/Head without Contrasto n 12-09-2024 Brain/Head without Contrast Normal [facility] CBC W/Diff, Automatedon - Absolute Lymph 0.84 X10 3/uL Normal 0.83-4.51 [facility] Comment on above: Performed By: #### L 501.5425, L501.5200, L500.2500, L100.0100 ####[facility] [address] [place], [address] Absolute Neut 7.9 X10 3/uL High 2.0-7.7 [facility] Comment on above: Performed By: #### L 501.5425, L501.5200, L500.2500, L100.0100 ####[facility] [address] [place], [address] Basophils/100 WBC (Bld) 0.6 % Normal 0-1 [facility] Comment on above: Performed By: #### L 501.5425, L501.5200, L500.2500, L100.0100 ####[facility] [address] [place], [address] Eosinophils/100 WBC (Bld) 1.1 % Normal 0-5 [facility] Comment on above: Performed By: #### L 501.5425, L501.5200, L500.2500, L100.0100 ####[facility] [address] [place], [address] Erythrocyte distribution width (RBC) [Ratio] 15.7 % High 11.6-14.6 [facility] Comment on above: Performed By: #### L 501.5425, L501.5200, L500.2500, L100.0100 ####[facility] [address] [place], [address] Hematocrit (Bld) [Volume fraction] 41.9 % Normal 37-47 [facility] Comment on above: Performed By: #### L 501.5425, L501.5200, L500.2500, L100.0100 ####[facility] [address] [place], [address] Hemoglobin (Bld) [Mass/Vol] 13.5 g/dL Normal 12.0-15.0 [facility] Comment on above: Performed By: #### L 501.5425, L501.5200, L500.2500, L100.0100 ####[facility] [address] [place], [address] IG% 0.600 Normal 0.0-0.9 [facility] Comment on above: Result Comment: IG% - Immature Granulocytes (promyelocytes, myelocytes andmetamyelocytes) > 1% indicates that a LEFT SHIFT is Present. Performed By: #### L 501.5425, L501.5200, L500.2500, L100.0100 ####[facility] [address] [place], [address] Lymphocytes/100 WBC (Bld) 8.7 % Low 19-41 [facility] Comment on above: Performed By: #### L 501.5425, L501.5200, L500.2500, L100.0100 ####[facility] [address] [place], [address] MCH (RBC) [Entitic mass] 27.2 pg Normal 27.0-32.0 [facility] Comment on above: Performed By: #### L 501.5425, L501.5200, L500.2500, L100.0100 ####[facility] [address] [place], [address] MCHC (RBC) [Mass/Vol] 32.2 g/dL Normal 32-36 [facility] Comment on above: Performed By: #### L 501.5425, L501.5200, L500.2500, L100.0100 ####[facility] [address] [place], [address] MCV (RBC) [Entitic vol] 84.3 fL Normal 81-99 [facility] Comment on above: Performed By: #### L 501.5425, L501.5200, L500.2500, L100.0100 ####[facility] [address] [place], [address] Monocytes/100 WBC (Bld) 6.8 % Normal 0-10 [facility] Comment on above: Performed By: #### L 501.5425, L501.5200, L500.2500, L100.0100 ####[facility] [address] [place], [address] Neutrophils/100 WBC (Bld) 82.2 % High 47-70 [facility] Comment on above: Performed By: #### L 501.5425, L501.5200, L500.2500, L100.0100 ####[facility] [address] [place], [address] Nucleated RBC (Bld) [#/Vol] 0 10*3/uL Normal 0-5 [facility] Comment on above: Performed By: #### L 501.5425, L501.5200, L500.2500, L100.0100 ####[facility] [address] [place], [address] Platelet mean volume (Bld) [Entitic vol] 10.2 fL Normal 6.2-12.0 [facility] Comment on above: Performed By: #### L 501.5425, L501.5200, L500.2500, L100.0100 ####[facility] [address] [place], [address] Platelets (Bld) [#/Vol] 191 10*3/uL Normal 150-450 [facility] Comment on above: Performed By: #### L 501.5425, L501.5200, L500.2500, L100.0100 ####[facility] [address] [place], [address] RBC (Bld) [#/Vol] 4.97 10*6/uL Normal 4.2-5.4 [facility] Comment on above: Performed By: #### L 501.5425, L501.5200, L500.2500, L100.0100 ####[facility] [address] [place], [address] RDW SD 48.3 fl High 35.1-43.9 [facility] Comment on above: Performed By: #### L 501.5425, L501.5200, L500.2500, L100.0100 ####[facility] [address] [place], [address] WBC (Bld) [#/Vol] 9.6 10*3/uL Normal 4.4-11.0 [facility] Comment on above: Performed By: #### L 501.5425, L501.5200, L500.2500, L100.0100 ####[facility] [address] [place], [address] Chest 1 View (Portable)on Chest 1 View (Portable) Normal W [facility] Echo Complete W/ Contraston 12-09-2024 Echo Complete W/ Contrast Normal [facility] Emergency Department Summary on 12-09-2024 Emergency Department Summary Normal [facility] H AND P Exam - Hospitaliston 12-09-2024 H&P Exam - Hospitalist Normal [facility] L501.4020on 12-09-2024 TROPONIN-I HS 72 pg/mL High 3.0-54.0 [facility] Comment on above: Order Comment: 'TROP ' Serial specimen #1, #2 or #3: 3 Result Comment: Plea se Note: New Test Units and Gender Specific Reference Ranges. For more information see Policy Stat Procedure [place] High Sensitivity Troponin (TNIH) and attachments. Performed By: #### L 501.4020 ####[facility] [address] [place], [address] TROPONIN-I HS 74 pg/mL High 3.0-54.0 [facility] Comment on above: Result Comment: Plea se Note: New Test Units and Gender Specific Reference Ranges. For more information see Policy Stat Procedure [place] High Sensitivity Troponin (TNIH) and attachments. Performed By: #### L 501.4020 ####[facility] [address] [place], [address] L501.5425on 12-09-2024 TROPONIN-I HS 91 pg/mL High 3.0-54.0 [facility] Comment on above: Order Comment: 1Y Result Comment: Plea se Note: New Test Units and Gender Specific Reference Ranges. For more information see Policy Stat Procedure [place] High Sensitivity Troponin (TNIH) and attachments. Performed By: #### L 501.5425, L501.5200, L500.2500, L100.0100 ####[facility] [address] [place], [address] Magnesiumon 12-09-2024 Magnesium [Mass/Vol] 2.3 mg/dL Normal 1.6-2.6 [facility] Comment on above: Order Comment: 1Y Performed By: #### L 501.5425, L501.5200, L500.2500, L100.0100 ####[facility] [address] [place], [address] Magnesium measurementOrdered By: Nuno Grider on 12-09-2024 Magnesium [Mass/Vol] 2.3 mg/dL 1.6-2.6 [facility] Troponin IOrdered By: Trina Tyler on 12-09-2024 Troponin I 72 pg/mL High 3.0-54.0 [facility] 12 Lead EKGon 11-28-2024 12 Lead EKG Normal [facility] Basic Metabolic Profile (BMP )on 11-28-2024 BUN/CRE 14.9 RATIO Normal 10-20 [facility] Comment on above: Performed By: #### L 100.0100, L500.2500, L300.8000 ####[facility] [address] [place], [address] CA,Total 9.5 mg/dL Normal 8.5-10.1 [facility] Comment on above: Performed By: #### L 100.0100, L500.2500, L300.8000 ####[facility] [address] [place], [address] Chloride [Moles/Vol] 105 mmol/L Normal 98-107 [facility] Comment on above: Performed By: #### L 100.0100, L500.2500, L300.8000 ####[facility] [address] [place], [address] CO2 [Moles/Vol] 26.0 mmol/L Normal 21.0-32.0 [facility] Comment on above: Performed By: #### L 100.0100, L500.2500, L300.8000 ####[facility] [address] [place], [address] Creatinine [Mass/Vol] 1.14 mg/dL High 0.55-1.02 [facility] Comment on above: Result Comment: The validity of the calculated GFR GFRAA in patients over70 years has not been determined. Clinical correlation isessential. Performed By: #### L 100.0100, L500.2500, L300.8000 ####[facility] [address] [place], [address] ECRCL 39.22 ml/min Normal [facility] Comment on above: Performed By: #### L 100.0100, L500.2500, L300.8000 ####[facility] [address] [place], [address] EST GFR - AA 61 mL/min Normal >60 [facility] Comment on above: Result Comment: Afri can Argentine GFR Calc Performed By: #### L 100.0100, L500.2500, L300.8000 ####[facility] [address] [place], [address] GAP 7 Normal 5-15 [facility] Comment on above: Performed By: #### L 100.0100, L500.2500, L300.8000 ####[facility] [address] [place], [address] GFR/1.73 sq M.predicted among non-blacks MDRD (S/P/Bld) [Vol rate/Area] 50 mL/min/{1.73_m2} Low >60 [facility] Comment on above: Result Comment: Non- GFR Calc Performed By: #### L 100.0100, L500.2500, L300.8000 ####[facility] [address] [place], [address] Glucose [Mass/Vol] 107 mg/dL High 74-106 [facility] Comment on above: Result Comment: Fast ing Glucose result from 100 to 125 mg/dLsuggests IMPAIRED HOMEOSTASIS per A.D.A. criteria. Performed By: #### L 100.0100, L500.2500, L300.8000 ####[facility] [address] [place], [address] Potassium [Moles/Vol] 3.2 mmol/L Low 3.5-5.1 [facility] Comment on above: Performed By: #### L 100.0100, L500.2500, L300.8000 ####[facility] [address] [place], [address] Sodium [Moles/Vol] 138 mmol/L Normal 136-145 [facility] Comment on above: Performed By: #### L 100.0100, L500.2500, L300.8000 ####[facility] [address] [place], [address] Urea nitrogen [Mass/Vol] 17 mg/dL Normal 7-18 [facility] Comment on above: Performed By: #### L 100.0100, L500.2500, L300.8000 ####[facility] [address] [place], [address] Brain/Head without Contrasto n 11-28-2024 Brain/Head without Contrast Normal [facility] CBC W/Diff, Automatedon - 0-2024 Absolute Lymph 2.10 X10 3/uL Normal 0.83-4.51 [facility] Comment on above: Performed By: #### L 100.0100, L500.2500, L300.8000 ####[facility] [address] [place], [address] Absolute Neut 5.8 X10 3/uL Normal 2.0-7.7 [facility] Comment on above: Performed By: #### L 100.0100, L500.2500, L300.8000 ####[facility] [address] [place], [address] Basophils/100 WBC (Bld) 0.8 % Normal 0-1 [facility] Comment on above: Performed By: #### L 100.0100, L500.2500, L300.8000 ####[facility] [address] [place], [address] Eosinophils/100 WBC (Bld) 2.3 % Normal 0-5 [facility] Comment on above: Performed By: #### L 100.0100, L500.2500, L300.8000 ####[facility] [address] [place], [address] Erythrocyte distribution width (RBC) [Ratio] 15.8 % High 11.6-14.6 [facility] Comment on above: Performed By: #### L 100.0100, L500.2500, L300.8000 ####[facility] [address] [place], [address] Hematocrit (Bld) [Volume fraction] 40.3 % Normal 37-47 [facility] Comment on above: Performed By: #### L 100.0100, L500.2500, L300.8000 ####[facility] [address] [place], [address] Hemoglobin (Bld) [Mass/Vol] 13.1 g/dL Normal 12.0-15.0 [facility] Comment on above: Performed By: #### L 100.0100, L500.2500, L300.8000 ####[facility] [address] [place], [address] IG% 0.400 Normal 0.0-0.9 [facility] Comment on above: Result Comment: IG% - Immature Granulocytes (promyelocytes, myelocytes andmetamyelocytes) > 1% indicates that a LEFT SHIFT is Present. Performed By: #### L 100.0100, L500.2500, L300.8000 ####[facility] [address] [place], [address] Lymphocytes/100 WBC (Bld) 23.0 % Normal 19-41 [facility] Comment on above: Performed By: #### L 100.0100, L500.2500, L300.8000 ####[facility] [address] [place], [address] MCH (RBC) [Entitic mass] 27.1 pg Normal 27.0-32.0 [facility] Comment on above: Performed By: #### L 100.0100, L500.2500, L300.8000 ####[facility] [address] [place], [address] MCHC (RBC) [Mass/Vol] 32.5 g/dL Normal 32-36 [facility] Comment on above: Performed By: #### L 100.0100, L500.2500, L300.8000 ####[facility] [address] [place], [address] MCV (RBC) [Entitic vol] 83.4 fL Normal 81-99 [facility] Comment on above: Performed By: #### L 100.0100, L500.2500, L300.8000 ####[facility] [address] [place], [address] Monocytes/100 WBC (Bld) 10.2 % High 0-10 [facility] Comment on above: Performed By: #### L 100.0100, L500.2500, L300.8000 ####[facility] [address] [place], [address] Neutrophils/100 WBC (Bld) 63.3 % Normal 47-70 [facility] Comment on above: Performed By: #### L 100.0100, L500.2500, L300.8000 ####[facility] [address] [place], [address] Nucleated RBC (Bld) [#/Vol] 0 10*3/uL Normal 0-5 [facility] Comment on above: Performed By: #### L 100.0100, L500.2500, L300.8000 ####[facility] [address] [place], [address] Platelet mean volume (Bld) [Entitic vol] 10.2 fL Normal 6.2-12.0 [facility] Comment on above: Performed By: #### L 100.0100, L500.2500, L300.8000 ####[facility] [address] [place], [address] Platelets (Bld) [#/Vol] 204 10*3/uL Normal 150-450 [facility] Comment on above: Performed By: #### L 100.0100, L500.2500, L300.8000 ####[facility] [address] [place], [address] RBC (Bld) [#/Vol] 4.83 10*6/uL Normal 4.2-5.4 [facility] Comment on above: Performed By: #### L 100.0100, L500.2500, L300.8000 ####[facility] [address] [place], [address] RDW SD 47.8 fl High 35.1-43.9 [facility] Comment on above: Performed By: #### L 100.0100, L500.2500, L300.8000 ####[facility] [address] [place], [address] WBC (Bld) [#/Vol] 9.1 10*3/uL Normal 4.4-11.0 [facility] Comment on above: Performed By: #### L 100.0100, L500.2500, L300.8000 ####[facility] [address] [place], [address] D-Dimer Quantitative (DVT/PE )on 11-28-2024 D-DIMER QUANT 0.40 FEU/ug/m Normal 0.27-0.49 [facility] Comment on above: Result Comment: NORM AL D-Dimer level (<0.50) indicates no DVT or PE. Performed By: #### L 100.0100, L500.2500, L300.8000 ####[facility] [address] [place], [address] Emergency Department Summary on 11-28-2024 Emergency Department Summary Normal [facility] Cardiology Visit Reporton Cardiology Visit Report Normal [facility] 36on 11-20-2024 36 Patient called in an [...] medication tab): 09/15/24 Updated/Validated preferred pharmacy: [id number] Patient instructed to contact the pharmacy prior to picking up the medication: Yes Normal [facility] 36 Last ov-12/14/23 Next ov- N/A Normal [facility] Pulmonary Visit Reporton Pulmonary Visit Report Normal [facility] 6 Minute Walk Teston 024 6 Minute Walk Test Normal [facility] Low Dose CT Lung Screeningon 10-03-[address] Lung Screening Normal [facility] 36on 09-15-2024 36 patient has been not ified of providers message. She will call back to schedule the appointment Normal [facility] 36 Refill for baclofen sent. Patient needs to schedule a follow up; in November it will be one year since she has last see. Normal [facility] 36 Last ov- 12/14/23 Next ov- n/a Normal [facility] Abd Aortic/IVC Duplex scanon 08-27-2024 Abd Aortic/IVC Duplex scan Normal [facility] Ankle Brachial Indexon 08-27 Ankle Brachial Index Normal [facility] Pulmonary Visit Reporton Pulmonary Visit Report Normal [facility] CBC W/Diff, Automatedon 07-21 Absolute Lymph 1.25 X10 3/uL Normal 0.83-4.51 [facility] Comment on above: Order Comment: Inter face Comments:cc copy to Dr. Nicola Hernandez Vascular SurgeonOrder Date: 08/14/24Order Info: [id number] - CBCDComments: cc copy to Dr. Nicola Hernandez, Vascular Surgeon Performed By: #### L 500.4050, L100.0100, L503.6550, L503.6030 ####[facility] [address] [place], [address] Absolute Neut 4.6 X10 3/uL Normal 2.0-7.7 [facility] Comment on above: Order Comment: Inter face Comments:cc copy to Dr. Nicola Hernandez Vascular SurgeonOrder Date: 08/14/24Order Info: [id number] - CBCDComments: cc copy to Dr. Nicola Hernandez, Vascular Surgeon Performed By: #### L 500.4050, L100.0100, L503.6550, L503.6030 ####[facility] [address] [place], [address] Basophils/100 WBC (Bld) 0.7 % Normal 0-1 [facility] Comment on above: Order Comment: Inter face Comments:cc copy to Dr. Nicola Hernandez Vascular SurgeonOrder Date: 08/14/24Order Info: [id number]- - CBCDComments: cc copy to Dr. Nicola Hernandez Vascular Surgeon Performed By: #### L 500.4050, L100.0100, L503.6550, L503.6030 ####[facility] [address] [place], [address] Eosinophils/100 WBC (Bld) 5.6 % High 0-5 [facility] Comment on above: Order Comment: Inter face Comments:cc copy to Dr. Nicola Hernandez Vascular SurgeonOrder Date: 08/14/24Order Info: [id number]- - CBCDComments: cc copy to Dr. Nicola Hernandez Vascular Surgeon Performed By: #### L 500.4050, L100.0100, L503.6550, L503.6030 ####[facility] [address] [place], [address] Erythrocyte distribution width (RBC) [Ratio] 15.4 % High 11.6-14.6 [facility] Comment on above: Order Comment: Inter face Comments:cc copy to Dr. Nicola Hernandez Vascular SurgeonOrder Date: 08/14/24Order Info: [id number] - CBCDComments: cc copy to Dr. Nicola Hernandez, Vascular Surgeon Performed By: #### L 500.4050, L100.0100, L503.6550, L503.6030 ####[facility] [address] [place], [address] Hematocrit (Bld) [Volume fraction] 39.2 % Normal 37-47 [facility] Comment on above: Order Comment: Inter face Comments:cc copy to Dr. Nicola Hernandez Vascular SurgeonOrder Date: 08/14/24Order Info: [id number] - CBCDComments: cc copy to Dr. Nicola Hernandez, Vascular Surgeon Performed By: #### L 500.4050, L100.0100, L503.6550, L503.6030 ####[facility] [address] [place], [address] Hemoglobin (Bld) [Mass/Vol] 12.1 g/dL Normal 12.0-15.0 [facility] Comment on above: Order Comment: Inter face Comments:cc copy to Dr. Nicola Hernandez Vascular SurgeonOrder Date: 08/14/24Order Info: [id number] - CBCDComments: cc copy to Dr. Nicola Hernandez Vascular Surgeon Performed By: #### L 500.4050, L100.0100, L503.6550, L503.6030 ####[facility] [address] [place], [address] IG% 0.300 Normal 0.0-0.9 [facility] Comment on above: Order Comment: Inter face Comments:cc copy to Dr. Nicola Hernandez Vascular SurgeonOrder Date: 08/14/24Order Info: [id number] - CBCDComments: cc copy to Dr. Nicola Hernandez, Vascular Surgeon Result Comment: IG% - Immature Granulocytes (promyelocytes, myelocytes andmetamyelocytes) > 1% indicates that a LEFT SHIFT is Present. Performed By: #### L 500.4050, L100.0100, L503.6550, L503.6030 ####[facility] [address] [place], [address] Lymphocytes/100 WBC (Bld) 17.8 % Low 19-41 [facility] Comment on above: Order Comment: Inter face Comments:cc copy to Dr. Nicola Hernandez Vascular SurgeonOrder Date: 08/14/24Order Info: [id number] - CBCDComments: cc copy to Dr. Nicola Hernandez, Vascular Surgeon Performed By: #### L 500.4050, L100.0100, L503.6550, L503.6030 ####[facility] [address] [place], [address] MCH (RBC) [Entitic mass] 27.9 pg Normal 27.0-32.0 [facility] Comment on above: Order Comment: Inter face Comments:cc copy to Dr. Nicola Hernandez Vascular SurgeonOrder Date: 08/14/24Order Info: [id number] - CBCDComments: cc copy to Dr. Nicola Hernandez Vascular Surgeon Performed By: #### L 500.4050, L100.0100, L503.6550, L503.6030 ####[facility] [address] [place], [address] MCHC (RBC) [Mass/Vol] 30.9 g/dL Low 32-36 [facility] Comment on above: Order Comment: Inter face Comments:cc copy to Dr. Nicola Hernandez Vascular SurgeonOrder Date: 08/14/24Order Info: [id number] - CBCDComments: cc copy to Dr. Nicola Hernandez, Vascular Surgeon Performed By: #### L 500.4050, L100.0100, L503.6550, L503.6030 ####[facility] [address] [place], [address] MCV (RBC) [Entitic vol] 90.5 fL Normal 81-99 [facility] Comment on above: Order Comment: Inter face Comments:cc copy to Dr. Nicola Hernandez Vascular SurgeonOrder Date: 08/14/24Order Info: [id number] - CBCDComments: cc copy to Dr. Nicola Hernandez, Vascular Surgeon Performed By: #### L 500.4050, L100.0100, L503.6550, L503.6030 ####[facility] [address] [place], [address] Monocytes/100 WBC (Bld) 9.4 % Normal 0-10 [facility] Comment on above: Order Comment: Inter face Comments:cc copy to Dr. Nicola Hernandez Vascular SurgeonOrder Date: 08/14/24Order Info: [id number] - CBCDComments: cc copy to Dr. Nicola Hernandez, Vascular Surgeon Performed By: #### L 500.4050, L100.0100, L503.6550, L503.6030 ####[facility] [address] [place], [address] Neutrophils/100 WBC (Bld) 66.2 % Normal 47-70 [facility] Comment on above: Order Comment: Inter face Comments:cc copy to Dr. Nicola Hernandez Vascular SurgeonOrder Date: 08/14/24Order Info: [id number] - CBCDComments: cc copy to Dr. Nicola Hernandez Vascular Surgeon Performed By: #### L 500.4050, L100.0100, L503.6550, L503.6030 ####[facility] [address] [place], [address] Nucleated RBC (Bld) [#/Vol] 0 10*3/uL Normal 0-5 [facility] Comment on above: Order Comment: Inter face Comments:cc copy to Dr. Nicola Hernandez Vascular SurgeonOrder Date: 08/14/24Order Info: [id number]- - CBCDComments: cc copy to Dr. Nicola Hernandez, Vascular Surgeon Performed By: #### L 500.4050, L100.0100, L503.6550, L503.6030 ####[facility] [address] [place], [address] Platelet mean volume (Bld) [Entitic vol] 10.9 fL Normal 6.2-12.0 [facility] Comment on above: Order Comment: Inter face Comments:cc copy to Dr. Nicola Hernandez, Vascular SurgeonOrder Date: 08/14/24Order Info: [id number] - CBCDComments: cc copy to Dr. Nicola Hernandez, Vascular Surgeon Performed By: #### L 500.4050, L100.0100, L503.6550, L503.6030 ####[facility] [address] [place], [address] Platelets (Bld) [#/Vol] 160 10*3/uL Normal 150-450 [facility] Comment on above: Order Comment: Inter face Comments:cc copy to Dr. Nicola Hernandez Vascular SurgeonOrder Date: 08/14/24Order Info: [id number]- - CBCDComments: cc copy to Dr. Nicola Hernandez, Vascular Surgeon Performed By: #### L 500.4050, L100.0100, L503.6550, L503.6030 ####[facility] [address] [place], [address] RBC (Bld) [#/Vol] 4.33 10*6/uL Normal 4.2-5.4 [facility] Comment on above: Order Comment: Inter face Comments:cc copy to Dr. Nicola Hernandez Vascular SurgeonOrder Date: 08/14/24Order Info: [id number]- - CBCDComments: cc copy to Dr. Nicola Hernandez, Vascular Surgeon Performed By: #### L 500.4050, L100.0100, L503.6550, L503.6030 ####[facility] [address] [place], [address] RDW SD 51.4 fl High 35.1-43.9 [facility] Comment on above: Order Comment: Inter face Comments:cc copy to Dr. Nicola Hernandez Vascular SurgeonOrder Date: 08/14/24Order Info: [id number] - CBCDComments: cc copy to Dr. Nicola Hernandez Vascular Surgeon Performed By: #### L 500.4050, L100.0100, L503.6550, L503.6030 ####[facility] [address] [place], [address] WBC (Bld) [#/Vol] 7.0 10*3/uL Normal 4.4-11.0 [facility] Comment on above: Order Comment: Inter face Comments:cc copy to Dr. Nicola Hernandez Vascular SurgeonOrder Date: 08/14/24Order Info: [id number] - CBCDComments: cc copy to Dr. Nicola Hernandez Vascular Surgeon Performed By: #### L 500.4050, L100.0100, L503.6550, L503.6030 ####[facility] [address] [place], [address] Comprehensive Metabolic Prof ilon 08-14-2024 Albumin [Mass/Vol] 3.3 g/dL Normal 3.2-5.0 [facility] Comment on above: Order Comment: Inter face Comments:cc copy to Dr. Nicola Hernandez Vascular SurgeonOrder Date: 08/14/24Order Info: [id number] - CMPOrder Info: [id number] - TSHOrder Info: [id number] - IBCOrder Info: [id number] - FERComments: cc copy to Dr. Nicola Hernandez Vascular SurgeonOrder Info: [id number] - T4Fcc copy to Dr. Nicola Hernandez Vascular Surgeon Performed By: #### L 500.4050, L100.0100, L503.6550, L503.6030 ####[facility] [address] [place], [address] Albumin/Globulin [Mass ratio] 1.0 {ratio} Normal 0.9-2.4 [facility] Comment on above: Order Comment: Inter face Comments:cc copy to Dr. Nicola Hernandez Vascular SurgeonOrder Date: 08/14/24Order Info: [id number]- - CMPOrder Info: 3 - TSHOrder Info: [id number] - IBCOrder Info: [id number] - FERComments: cc copy to Dr. Nicola Hernandez Vascular SurgeonOrder Info: [id number] - T4Fcc copy to Dr. Nicola Hernandez, Vascular Surgeon Performed By: #### L 500.4050, L100.0100, L503.6550, L503.6030 ####[facility] [address] [place], [address] ALK P 128 U/L High 45-117 [facility] Comment on above: Order Comment: Inter face Comments:cc copy to Dr. Nicola Hernandez Vascular SurgeonOrder Date: 08/14/24Order Info: 785-11 - CMPOrder Info: [id number] - TSHOrder Info: [id number] - IBCOrder Info: [id number] - FERComments: cc copy to Dr. Nicola Hernandez Vascular SurgeonOrder Info: 3024-[address] Nicola Hernandez, Vascular Surgeon Performed By: #### L 500.4050, L100.0100, L503.6550, L503.6030 ####[facility] [address] [place], [address] ALT [Catalytic activity/Vol] 14 U/L Normal 13-56 [facility] Comment on above: Order Comment: Inter face Comments:cc copy to Dr. Nicola Hernandez Vascular SurgeonOrder Date: 08/14/24Order Info: 785-11 - CMPOrder Info: [id number] - TSHOrder Info: [id number] - IBCOrder Info: [id number] - FERComments: cc copy to Dr. Nicola Hernandez Vascular SurgeonOrder Info: 3027 - T4Fcc copy to Dr. Nicola Hernandez, Vascular Surgeon Performed By: #### L 500.4050, L100.0100, L503.6550, L503.6030 ####[facility] [address] [place], [address] AST [Catalytic activity/Vol] 12 U/L Low 15-37 [facility] Comment on above: Order Comment: Inter face Comments:cc copy to Dr. Nicola Hernandez Vascular SurgeonOrder Date: 08/14/24Order Info: 0786-1 - CMPOrder Info: [id number] - TSHOrder Info: [id number] - IBCOrder Info: [id number] - FERComments: cc copy to Dr. Nicola Hernandez, Vascular SurgeonOrder Info: 30247 - T4Fcc copy to Dr. Nicola Hernandez, Vascular Surgeon Performed By: #### L 500.4050, L100.0100, L503.6550, L503.6030 ####[facility] [address] [place], [address] Bilirubin [Mass/Vol] 0.30 mg/dL Normal 0.20-1.00 [facility] Comment on above: Order Comment: Inter face Comments:cc copy to Dr. Nicola Hernandez Vascular SurgeonOrder Date: 08/14/24Order Info: 785-1 - CMPOrder Info: 3 - TSHOrder Info: [id number] - IBCOrder Info: [id number] - FERComments: cc copy to Dr. Nicola Hernandez Vascular SurgeonOrder Info: 30247 - T4Fcc copy to Dr. Nicola Hernandez, Vascular Surgeon Result Comment: For patients on eltrombopag therapy, use of Dimension Bonaparte TBIL is not recommended. Performed By: #### L 500.4050, L100.0100, L503.6550, L503.6030 ####[facility] [address] [place], [address] BUN/CRE 14.5 RATIO Normal 10-20 [facility] Comment on above: Order Comment: Inter face Comments:cc copy to Dr. Nicola Hernandez Vascular SurgeonOrder Date: 08/14/24Order Info: [id number] - CMPOrder Info: [id number] - TSHOrder Info: [id number] - IBCOrder Info: [id number] - FERComments: cc copy to Dr. Nicola Hernandez Vascular SurgeonOrder Info: 3024-05 - T4Fcc copy to Dr. Nicola Hernandez, Vascular Surgeon Performed By: #### L 500.4050, L100.0100, L503.6550, L503.6030 ####[facility] [address] [place], [address] CA,Total 9.3 mg/dL Normal 8.5-10.1 [facility] Comment on above: Order Comment: Inter face Comments:cc copy to Dr. Nicola Hernandez Vascular SurgeonOrder Date: 08/14/24Order Info: 0786-1 - CMPOrder Info: [id number] - TSHOrder Info: [id number] - IBCOrder Info: [id number] - FERComments: cc copy to Dr. Nicola Hernandez Vascular SurgeonOrder Info: 3024-[address] Nicola Hernandez, Vascular Surgeon Performed By: #### L 500.4050, L100.0100, L503.6550, L503.6030 ####[facility] [address] [place], [address] Chloride [Moles/Vol] 107 mmol/L Normal 98-107 [facility] Comment on above: Order Comment: Inter face Comments:cc copy to Dr. Nicola Hernandez Vascular SurgeonOrder Date: 08/14/24Order Info: 0786- - CMPOrder Info: [id number] - TSHOrder Info: [id number] - IBCOrder Info: [id number] - FERComments: cc copy to Dr. Nicola Hernandez Vascular SurgeonOrder Info: 3024-05 - T4Fcc copy to Dr. Nicola Hernandez, Vascular Surgeon Performed By: #### L 500.4050, L100.0100, L503.6550, L503.6030 ####[facility] [address] [place], [address] CO2 [Moles/Vol] 28.0 mmol/L Normal 21.0-32.0 [facility] Comment on above: Order Comment: Inter face Comments:cc copy to Dr. Nicola Hernandez Vascular SurgeonOrder Date: 08/14/24Order Info: 07-1 - CMPOrder Info: [id number] - TSHOrder Info: [id number] - IBCOrder Info: [id number] - FERComments: cc copy to Dr. Nicola Hernandez Vascular SurgeonOrder Info: 3027 - T4Fcc copy to Dr. Nicola Hernandez Vascular Surgeon Performed By: #### L 500.4050, L100.0100, L503.6550, L503.6030 ####[facility] [address] [place], [address] Creatinine [Mass/Vol] 1.10 mg/dL High 0.55-1.02 [facility] Comment on above: Order Comment: Inter face Comments:cc copy to Dr. Nicola Hernandez Vascular SurgeonOrder Date: 08/14/24Order Info: [id number] - CMPOrder Info: 3 - TSHOrder Info: [id number] - IBCOrder Info: [id number] - FERComments: cc copy to Dr. Nicola Hernandez Vascular SurgeonOrder Info: 3024-05 - T4Fcc copy to Dr. Nicola Hernandez, Vascular Surgeon Result Comment: The validity of the calculated GFR GFRAA in patients over70 years has not been determined. Clinical correlation isessential. Performed By: #### L 500.4050, L100.0100, L503.6550, L503.6030 ####[facility] [address] [place], [address] EST GFR - AA 63 mL/min Normal >60 [facility] Comment on above: Order Comment: Inter face Comments:cc copy to Dr. Nicola Hernandez Vascular SurgeonOrder Date: 08/14/24Order Info: 07-1 - CMPOrder Info: 3 - TSHOrder Info: [id number] - IBCOrder Info: [id number] - FERComments: cc copy to Dr. Nicola Hernandez Vascular SurgeonOrder Info: 3027 - T4Fcc copy to Dr. Nicola Hernandez, Vascular Surgeon Result Comment: Afri can Argentine GFR Calc Performed By: #### L 500.4050, L100.0100, L503.6550, L503.6030 ####[facility] [address] [place], [address] GAP 5 Normal 5-15 [facility] Comment on above: Order Comment: Inter face Comments:cc copy to Dr. Nicola Hernandez Vascular SurgeonOrder Date: 08/14/24Order Info: 0786-1 - CMPOrder Info: 3 - TSHOrder Info: [id number] - IBCOrder Info: [id number] - FERComments: cc copy to Dr. Nicola Hernandez Vascular SurgeonOrder Info: [id number] - T4Fcc copy to Dr. Nicola Hernandez, Vascular Surgeon Performed By: #### L 500.4050, L100.0100, L503.6550, L503.6030 ####[facility] [address] [place], [address] GFR/1.73 sq M.predicted among non-blacks MDRD (S/P/Bld) [Vol rate/Area] 52 mL/min/{1.73_m2} Low >60 [facility] Comment on above: Order Comment: Inter face Comments:cc copy to Dr. Nicola Hernandez Vascular SurgeonOrder Date: 08/14/24Order Info: 0786-1 - CMPOrder Info: 3 - TSHOrder Info: [id number] - IBCOrder Info: [id number] - FERComments: cc copy to Dr. Nicola Hernandez, Vascular SurgeonOrder Info: 3024-7 - T4Fcc copy to Dr. Nicola Hernandez, Vascular Surgeon Result Comment: Non- GFR Calc Performed By: #### L 500.4050, L100.0100, L503.6550, L503.6030 ####[facility] [address] [place], [address] Globulin (S) [Mass/Vol] 3.4 g/dL Normal 2.2-4.2 [facility] Comment on above: Order Comment: Inter face Comments:cc copy to Dr. Nicola Hernandez Vascular SurgeonOrder Date: 08/14/24Order Info: 07-1 - CMPOrder Info: 3 - TSHOrder Info: [id number] - IBCOrder Info: [id number] - FERComments: cc copy to Dr. Nicola Hernandez Vascular SurgeonOrder Info: 3027 - T4Fcc copy to Dr. Nicola Hernandez Vascular Surgeon Performed By: #### L 500.4050, L100.0100, L503.6550, L503.6030 ####[facility] [address] [place], [address] Glucose [Mass/Vol] 82 mg/dL Normal 74-106 [facility] Comment on above: Order Comment: Inter face Comments:cc copy to Dr. Nicola Hernandez Vascular SurgeonOrder Date: 08/14/24Order Info: 785-11 - CMPOrder Info: [id number] - TSHOrder Info: [id number] - IBCOrder Info: [id number] - FERComments: cc copy to Dr. Nicola Hernandez Vascular SurgeonOrder Info: 3024-05 - T4Fcc copy to Dr. Nicola Hernandez, Vascular Surgeon Performed By: #### L 500.4050, L100.0100, L503.6550, L503.6030 ####[facility] [address] [place], [address] Potassium [Moles/Vol] 4.0 mmol/L Normal 3.5-5.1 [facility] Comment on above: Order Comment: Inter face Comments:cc copy to Dr. Nicola Hernandez Vascular SurgeonOrder Date: 08/14/24Order Info: 785-1 - CMPOrder Info: 3 - TSHOrder Info: [id number] - IBCOrder Info: [id number] - FERComments: cc copy to Dr. Nicola Hernandez Vascular SurgeonOrder Info: 3027 - T4Fcc copy to Dr. Nicola Hernandez, Vascular Surgeon Performed By: #### L 500.4050, L100.0100, L503.6550, L503.6030 ####[facility] [address] [place], [address] Sodium [Moles/Vol] 140 mmol/L Normal 136-145 [facility] Comment on above: Order Comment: Inter face Comments:cc copy to Dr. Nicola Hernandez Vascular SurgeonOrder Date: 08/14/24Order Info: 0786-1 - CMPOrder Info: [id number] - TSHOrder Info: [id number] - IBCOrder Info: [id number] - FERComments: cc copy to Dr. Nicola Hernandez Vascular SurgeonOrder Info: 3024-7 - T4Fcc copy to Dr. Nicola Hernandez, Vascular Surgeon Performed By: #### L 500.4050, L100.0100, L503.6550, L503.6030 ####[facility] [address] [place], [address] T PROT 6.7 g/dL Normal 6.4-8.2 [facility] Comment on above: Order Comment: Inter face Comments:cc copy to Dr. Nicola Hernandez Vascular SurgeonOrder Date: 08/14/24Order Info: 0786-1 - CMPOrder Info: [id number] - TSHOrder Info: [id number] - IBCOrder Info: [id number] - FERComments: cc copy to Dr. Nicola Hernandez Vascular SurgeonOrder Info: 3024-7 - T4Fcc copy to Dr. Nicola Hernandez, Vascular Surgeon Performed By: #### L 500.4050, L100.0100, L503.6550, L503.6030 ####[facility] [address] [place], [address] Urea nitrogen [Mass/Vol] 16 mg/dL Normal 7-18 [facility] Comment on above: Order Comment: Inter face Comments:cc copy to Dr. Nicola Hernandez Vascular SurgeonOrder Date: 08/14/24Order Info: 0786-1 - CMPOrder Info: 6-3 - TSHOrder Info: [id number] - IBCOrder Info: [id number] - FERComments: cc copy to Dr. Nicola Hernandez Vascular SurgeonOrder Info: 3024-7 - T4Fcc copy to Dr. Nicola Hernandez Vascular Surgeon Performed By: #### L 500.4050, L100.0100, L503.6550, L503.6030 ####[facility] [address] [place], [address] Ferritinon 08-14-2024 Ferritin [Mass/Vol] 35 ng/mL Normal 8-252 [facility] Comment on above: Order Comment: Inter face Comments:cc copy to Dr. Nicola Hernandez Vascular SurgeonOrder Date: 08/14/24Order Info: 0786-1 - CMPOrder Info: [id number] - TSHOrder Info: [id number] - IBCOrder Info: [id number] - FERComments: cc copy to Dr. Nicola Hernandez Vascular SurgeonOrder Info: 3027 - T4Fcc copy to Dr. Nicola Hernandez Vascular Surgeon Performed By: #### L 500.4050, L100.0100, L503.6550, L503.6030 ####[facility] [address] [place], [address] Iron+Iron Binding Capacityon 08-14-2024 Iron [Mass/Vol] 31 ug/dL Low 50-170 [facility] Comment on above: Order Comment: Inter face Comments:cc copy to Dr. Nicola Hernandez Vascular SurgeonOrder Date: 08/14/24Order Info: 0786-1 - CMPOrder Info: 3 - TSHOrder Info: [id number] - IBCOrder Info: [id number] - FERComments: cc copy to Dr. Nicola Hernandez Vascular SurgeonOrder Info: 30247 - T4Fcc copy to Dr. Nicola Hernandez Vascular Surgeon Performed By: #### L 500.4050, L100.0100, L503.6550, L503.6030 ####[facility] [address] [place], [address] IRON SATURATION 9.1 Low 15.0-55.0 [facility] Comment on above: Order Comment: Inter face Comments:cc copy to Dr. Nicola Hernandez Vascular SurgeonOrder Date: 08/14/24Order Info: 0786-1 - CMPOrder Info: 3 - TSHOrder Info: [id number] - IBCOrder Info: [id number] - FERComments: cc copy to Dr. Nicola Hernandez Vascular SurgeonOrder Info: 3024-05 - T4Fcc copy to Dr. Nicola Hernandez Vascular Surgeon Performed By: #### L 500.4050, L100.0100, L503.6550, L503.6030 ####[facility] [address] [place], [address] TIBC 339 ug/dL Normal 250-450 [facility] Comment on above: Order Comment: Inter face Comments:cc copy to Dr. Nicola Hernandez Vascular SurgeonOrder Date: 08/14/24Order Info: 785-11 - CMPOrder Info: 3 - TSHOrder Info: [id number] - IBCOrder Info: [id number] - FERComments: cc copy to Dr. Nicola Hernandez Vascular SurgeonOrder Info: 3024-05 - T4Fcc copy to Dr. Nicola Hernandez, Vascular Surgeon Performed By: #### L 500.4050, L100.0100, L503.6550, L503.6030 ####[facility] [address] [place], [address] T4 Free Directon 08-14-2024 T4 FREE DIRECT 1.18 ng/dL Normal 0.76-1.46 [facility] Comment on above: Order Comment: Inter face Comments:cc copy to Dr. Nicola Hernandez Vascular SurgeonOrder Date: 08/14/24Order Info: 785-1 - CMPOrder Info: 3 - TSHOrder Info: [id number] - IBCOrder Info: [id number] - FERComments: cc copy to Dr. Nicola Hernandez Vascular SurgeonOrder Info: 3024-05 - T4Fcc copy to Dr. Nicola Hernandez Vascular Surgeon Performed By: #### L 501.9520, L506.0400 ####[facility] [address] [place], [place], [address] Thyroid Stim Hormone (TSH)on 08-14-2024 TSH 1.650 uIU/mL Normal 0.358-3.74 0 [facility] Comment on above: Order Comment: Inter face Comments:cc copy to Dr. Nicola Hernandez, Vascular SurgeonOrder Date: 08/14/24Order Info: 0786-1 - CMPOrder Info: [id number] - TSHOrder Info: [id number] - IBCOrder Info: [id number] - FERComments: cc copy to Dr. Nicola Hernandez, Vascular SurgeonOrder Info: 3024-7 - T4Fcc copy to Dr. Nicola Hernandez, Vascular Surgeon Performed By: #### L 501.9520, L506.0400 ####[facility] [address] [place], [address] Celiac Disease Profileon ENDOMYSIAL IGA Negative Normal Negative [facility] Comment on above: Order Comment: N Performed By: #### L 100.0100, L3410.2400, L503.6075, L503.6150, L100.9950, L3100.1850, L503.6550, L3100.3425, L504.2610 ####[facility] [address] [place], [place], [id number] tTG IGA <2 Normal 0-3 [facility] Comment on above: Order Comment: N Result Comment: Nega tive 0 - 3 Weak Positive 4 - 10 Positive >10 Tissue Transglutaminase (tTG) has been identified as the endomysial antigen. Studies have demonstr- ated that endomysial IgA antibodies have over 99% specificity for gluten sensitive enteropathy. Performed By: #### L 100.0100, L3410.2400, L503.6075, L503.6150, L100.9950, L3100.1850, L503.6550, L3100.3425, L504.2610 ####[facility] [address] [place], [address] Haptoglobinon 06-23-2024 HAPTOGLOBIN 243 mg/dL Normal 37-355 [facility] Comment on above: Order Comment: N Result Comment: Perf ormed at: CB - [facility] [address] [place], [place] [id number] Director: Damion Richards PhD, Phone: [phone] Performed By: #### L 100.0100, L3410.2400, L503.6075, L503.6150, L100.9950, L3100.1850, L503.6550, L3100.3425, L504.2610 ####[facility] [address] [place], [place], [id number] CHRISTIANO + Protein Elect, Serumon 06-23-2024 Albumin [Mass/Vol] 3.4 g/dL Normal 2.9-4.4 [facility] Comment on above: Order Comment: N Performed By: #### L 100.0100, L3410.2400, L503.6075, L503.6150, L100.9950, L3100.1850, L503.6550, L3100.3425, L504.2610 ####[facility] [address] [place], [place], [phone] Albumin/Globulin [Mass ratio] 1.4 {ratio} Normal 0.7-1.7 [facility] Comment on above: Order Comment: N Performed By: #### L 100.0100, L3410.2400, L503.6075, L503.6150, L100.9950, L3100.1850, L503.6550, L3100.3425, L504.2610 ####[facility] [address] [place], [address] MNXCP-2-TXUG 0.2 g/dL Normal 0.0-0.4 [facility] Comment on above: Order Comment: N Performed By: #### L 100.0100, L3410.2400, L503.6075, L503.6150, L100.9950, L3100.1850, L503.6550, L3100.3425, L504.2610 ####[facility] [address] [place], [address] CJBEK-4-PGKT 0.8 g/dL Normal 0.4-1.0 [facility] Comment on above: Order Comment: N Performed By: #### L 100.0100, L3410.2400, L503.6075, L503.6150, L100.9950, L3100.1850, L503.6550, L3100.3425, L504.2610 ####[facility] [address] [place], [address] BETA GLOBULIN 0.9 g/dL Normal 0.7-1.3 [facility] Comment on above: Order Comment: N Performed By: #### L 100.0100, L3410.2400, L503.6075, L503.6150, L100.9950, L3100.1850, L503.6550, L3100.3425, L504.2610 ####[facility] [address] [place], [place], [phone]) GAMMA GLOBULIN 0.7 g/dL Normal 0.4-1.8 [facility] Comment on above: Order Comment: N Performed By: #### L 100.0100, L3410.2400, L503.6075, L503.6150, L100.9950, L3100.1850, L503.6550, L3100.3425, L504.2610 ####[facility] [address] [place], [address] Globulin (S) [Mass/Vol] 2.6 g/dL Normal 2.2-3.9 [facility] Comment on above: Order Comment: N Performed By: #### L 100.0100, L3410.2400, L503.6075, L503.6150, L100.9950, L3100.1850, L503.6550, L3100.3425, L504.2610 ####[facility] [address] [place], [address] CHRISTIANO RESULT,S Comment Normal . [facility] Comment on above: Order Comment: N Result Comment: No m onoclonality detected. Performed By: #### L 100.0100, L3410.2400, L503.6075, L503.6150, L100.9950, L3100.1850, L503.6550, L3100.3425, L504.2610 ####[facility] [address] [place], [address] IMMUNOGLOB A QN 135 mg/dL Normal 87-352 [facility] Comment on above: Order Comment: N Performed By: #### L 100.0100, L3410.2400, L503.6075, L503.6150, L100.9950, L3100.1850, L503.6550, L3100.3425, L504.2610 ####[facility] [address] [place], [address] IMMUNOGLOB G QN 775 mg/dL Normal 586-1602 [facility] Comment on above: Order Comment: N Performed By: #### L 100.0100, L3410.2400, L503.6075, L503.6150, L100.9950, L3100.1850, L503.6550, L3100.3425, L504.2610 ####[facility] [address] [place], [address] IMMUNOGLOB M QN 98 mg/dL Normal 26-217 [facility] Comment on above: Order Comment: N Performed By: #### L 100.0100, L3410.2400, L503.6075, L503.6150, L100.9950, L3100.1850, L503.6550, L3100.3425, L504.2610 ####[facility] [address] [place], [place], [phone] M-Isaac Not Observed Normal Not Observed [facility] Comment on above: Order Comment: N Performed By: #### L 100.0100, L3410.2400, L503.6075, L503.6150, L100.9950, L3100.1850, L503.6550, L3100.3425, L504.2610 ####[facility] [address] [place], [place], [id number] NOTE: Comment Normal . [facility] Comment on above: Order Comment: N Result Comment: Prot ein electrophoresis scan will follow via computer,mail, or privacy director delivery. Performed By: #### L 100.0100, L3410.2400, L503.6075, L503.6150, L100.9950, L3100.1850, L503.6550, L3100.3425, L504.2610 ####[facility] [address] [place], [place], [id number] Protein [Mass/Vol] 6.0 g/dL Normal 6.0-8.5 [facility] Comment on above: Order Comment: N Performed By: #### L 100.0100, L3410.2400, L503.6075, L503.6150, L100.9950, L3100.1850, L503.6550, L3100.3425, L504.2610 ####[facility] [address] [facility] [address] [place], [place], [id number] CBC W/Diff, Automatedon 08-0 -2023 Absolute Lymph 1.20 X10 3/uL Normal 0.83-4.51 [facility] Comment on above: Performed By: #### L 100.0100, L3410.2400, L503.6075, L503.6150, L100.9950, L3100.1850, L503.6550, L3100.3425, L504.2610 ####[facility] [address] [place], [address] Absolute Neut 4.1 X10 3/uL Normal 2.0-7.7 [facility] Comment on above: Performed By: #### L 100.0100, L3410.2400, L503.6075, L503.6150, L100.9950, L3100.1850, L503.6550, L3100.3425, L504.2610 ####[facility] [address] [place], [address] Basophils/100 WBC (Bld) 0.6 % Normal 0-1 [facility] Comment on above: Performed By: #### L 100.0100, L3410.2400, L503.6075, L503.6150, L100.9950, L3100.1850, L503.6550, L3100.3425, L504.2610 ####[facility] [address] [place], [place], [phone] Eosinophils/100 WBC (Bld) 3.7 % Normal 0-5 [facility] Comment on above: Performed By: #### L 100.0100, L3410.2400, L503.6075, L503.6150, L100.9950, L3100.1850, L503.6550, L3100.3425, L504.2610 ####[facility] [address] [place], [place], [phone]) Erythrocyte distribution width (RBC) [Ratio] 16.5 % High 11.6-14.6 [facility] Comment on above: Performed By: #### L 100.0100, L3410.2400, L503.6075, L503.6150, L100.9950, L3100.1850, L503.6550, L3100.3425, L504.2610 ####[facility] [address] [place], [address] Hematocrit (Bld) [Volume fraction] 36.8 % Low 37-47 [facility] Comment on above: Performed By: #### L 100.0100, L3410.2400, L503.6075, L503.6150, L100.9950, L3100.1850, L503.6550, L3100.3425, L504.2610 ####[facility] [address] [place], [place], [phone](050) Hemoglobin (Bld) [Mass/Vol] 11.8 g/dL Low 12.0-15.0 [facility] Comment on above: Performed By: #### L 100.0100, L3410.2400, L503.6075, L503.6150, L100.9950, L3100.1850, L503.6550, L3100.3425, L504.2610 ####[facility] [address] [place], [address] IG% 0.500 Normal 0.0-0.9 [facility] Comment on above: Result Comment: IG% - Immature Granulocytes (promyelocytes, myelocytes andmetamyelocytes) > 1% indicates that a LEFT SHIFT is Present. Performed By: #### L 100.0100, L3410.2400, L503.6075, L503.6150, L100.9950, L3100.1850, L503.6550, L3100.3425, L504.2610 ####[facility] [address] [place], [place], [phone] Lymphocytes/100 WBC (Bld) 19.3 % Normal 19-41 [facility] Comment on above: Performed By: #### L 100.0100, L3410.2400, L503.6075, L503.6150, L100.9950, L3100.1850, L503.6550, L3100.3425, L504.2610 ####[facility] [address] [place], [address] MCH (RBC) [Entitic mass] 27.4 pg Normal 27.0-32.0 [facility] Comment on above: Performed By: #### L 100.0100, L3410.2400, L503.6075, L503.6150, L100.9950, L3100.1850, L503.6550, L3100.3425, L504.2610 ####[facility] [address] [place], [address] MCHC (RBC) [Mass/Vol] 32.1 g/dL Normal 32-36 [facility] Comment on above: Performed By: #### L 100.0100, L3410.2400, L503.6075, L503.6150, L100.9950, L3100.1850, L503.6550, L3100.3425, L504.2610 ####[facility] [address] [place], [address] MCV (RBC) [Entitic vol] 85.6 fL Normal 81-99 [facility] Comment on above: Performed By: #### L 100.0100, L3410.2400, L503.6075, L503.6150, L100.9950, L3100.1850, L503.6550, L3100.3425, L504.2610 ####[facility] [id number] [place], [address] Monocytes/100 WBC (Bld) 9.8 % Normal 0-10 [facility] Comment on above: Performed By: #### L 100.0100, L3410.2400, L503.6075, L503.6150, L100.9950, L3100.1850, L503.6550, L3100.3425, L504.2610 ####[facility] [id number] [place], [address] Neutrophils/100 WBC (Bld) 66.1 % Normal 47-70 [facility] Comment on above: Performed By: #### L 100.0100, L3410.2400, L503.6075, L503.6150, L100.9950, L3100.1850, L503.6550, L3100.3425, L504.2610 ####[facility] [id number] [place], [address] Nucleated RBC (Bld) [#/Vol] 0 10*3/uL Normal 0-5 [facility] Comment on above: Performed By: #### L 100.0100, L3410.2400, L503.6075, L503.6150, L100.9950, L3100.1850, L503.6550, L3100.3425, L504.2610 ####[facility] [id number] [place], [address] Platelet mean volume (Bld) [Entitic vol] 9.4 fL Normal 6.2-12.0 [facility] Comment on above: Performed By: #### L 100.0100, L3410.2400, L503.6075, L503.6150, L100.9950, L3100.1850, L503.6550, L3100.3425, L504.2610 ####[facility] [id number] [place], [address] Platelets (Bld) [#/Vol] 154 10*3/uL Normal 150-450 [facility] Comment on above: Performed By: #### L 100.0100, L3410.2400, L503.6075, L503.6150, L100.9950, L3100.1850, L503.6550, L3100.3425, L504.2610 ####[facility] [address] [place], [address] RBC (Bld) [#/Vol] 4.30 10*6/uL Normal 4.2-5.4 [facility] Comment on above: Performed By: #### L 100.0100, L3410.2400, L503.6075, L503.6150, L100.9950, L3100.1850, L503.6550, L3100.3425, L504.2610 ####[facility] [id number] [place], [address] RDW SD 51.3 fl High 35.1-43.9 [facility] Comment on above: Performed By: #### L 100.0100, L3410.2400, L503.6075, L503.6150, L100.9950, L3100.1850, L503.6550, L3100.3425, L504.2610 ####[facility] [address] [place], [address] WBC (Bld) [#/Vol] 6.2 10*3/uL Normal 4.4-11.0 [facility] Comment on above: Performed By: #### L 100.0100, L3410.2400, L503.6075, L503.6150, L100.9950, L3100.1850, L503.6550, L3100.3425, L504.2610 ####[facility] [id number] [place], [address] Ferritinon 06-19-2024 Ferritin [Mass/Vol] 24 ng/mL Normal 8-252 [facility] Comment on above: Order Comment: 1 Performed By: #### L 100.0100, L3410.2400, L503.6075, L503.6150, L100.9950, L3100.1850, L503.6550, L3100.3425, L504.2610 ####[facility] [id number] [place], [address] Gastroenterology Visit Repor ton 06-19-2024 Gastroenterology Visit Report Normal [facility] Ironon 06-19-2024 Iron [Mass/Vol] 44 ug/dL Low 50-170 [facility] Comment on above: Order Comment: 1 Performed By: #### L 100.0100, L3410.2400, L503.6075, L503.6150, L100.9950, L3100.1850, L503.6550, L3100.3425, L504.2610 ####[facility] [address] [place], [address] Iron Binding Capacity,Totalo n 06-19-2024 TIBC 317 ug/dL Normal 250-450 [facility] Comment on above: Order Comment: 1 Performed By: #### L 100.0100, L3410.2400, L503.6075, L503.6150, L100.9950, L3100.1850, L503.6550, L3100.3425, L504.2610 ####[facility] [address] [place], [address] LDHon 06-19-2024 LDH 193 U/L Normal 84-246 [facility] Comment on above: Order Comment: 1 Performed By: #### L 100.0100, L3410.2400, L503.6075, L503.6150, L100.9950, L3100.1850, L503.6550, L3100.3425, L504.2610 ####[facility] [id number] [place], [address] Retic Panelon 06-19-2024 IM RET FRACTION 6.60 Normal 3.00-15.90 [facility] Comment on above: Performed By: #### L 100.0100, L3410.2400, L503.6075, L503.6150, L100.9950, L3100.1850, L503.6550, L3100.3425, L504.2610 ####[facility] [address] [place], [address] RET-HE 27.8 pg Low 30-35 [facility] Comment on above: Performed By: #### L 100.0100, L3410.2400, L503.6075, L503.6150, L100.9950, L3100.1850, L503.6550, L3100.3425, L504.2610 ####[facility] [address] [place], [address] Retic Count 1.25 Normal 0.5-1.5 [facility] Comment on above: Performed By: #### L 100.0100, L3410.2400, L503.6075, L503.6150, L100.9950, L3100.1850, L503.6550, L3100.3425, L504.2610 ####[facility] [address] [place], [place], [id number] Cardiology Visit Reporton Cardiology Visit Report Normal [facility] Absolute lymphocyte countOrd ered By: Daron Benton on 02-29-2024 Lymphocytes Auto (Unsp spec) [#/Vol] 1.00 10*3/uL 0.83-4.51 [facility] Automated lymphocyte count a s percentage of total leukocytesOrdered By: Daron Benton on 02-29-2024 Lymphocytes/100 WBC Auto (Unsp spec) 20.5 % 19-41 [facility] Basophil percentageOrdered B y: Daron Benton on 02-29-2024 Basophil percentage 10.4 g/dL 12.0-15.0 [facility] Basophil percentage 72 mg/dL 74-106 [facility] Basophil percentage 6.4 g/dL 6.4-8.2 [facility] Basophil percentage 0.30 mg/dL 0.20-1.00 [facility] Basophil percentage 139 mmol/L 136-145 [facility] Basophil percentage 3.9 mmol/L 3.5-5.1 [facility] Basophil percentage 105 mmol/L 98-107 [facility] Basophils (Bld) [#/Vol] 4.9 10*3/uL 4.4-11.0 [facility] Basophils (Bld) [#/Vol] 3.1 10*3/uL 2.0-7.7 [facility] Basophils/100 WBC (Bld) 63.6 % 47-70 [facility] Basophils/100 WBC (Bld) 8.8 % 0-10 [facility] Basophils/100 WBC (Bld) 5.1 % 0-5 [facility] Basophils/100 WBC (Bld) 1.4 % 0-1 [facility] Blood manual differential co mment interpretation (narrative result)Ordered By: Daron Benton on 02-29-2024 Manual differential comment Jimy (Bld) [Interp] SCANNED [facility] Determination of erythrocyte mean corpuscular volume (MCV)Ordered By: Daron Benton on 02-29-2024 MCV (RBC) [Entitic vol] 84.6 fL 81-99 [facility] Erythrocyte distribution wid th ratioOrdered By: Daron Benton on 02-29-2024 Erythrocyte distribution width (RBC) [Ratio] 20.3 % 11.6-14.6 [facility] Erythrocyte distribution wid th standard deviationOrdered By: Daron Benton on 02-29-2024 Erythrocyte distribution width (RBC) [Entitic vol] 62.6 fL 35.1-43.9 [facility] Hematocrit Auto (Bld) [Volum e fraction]Ordered By: Daron Benton on 02-29-2024 Hematocrit (Bld) [Volume fraction] 35.7 % 37-47 [facility] Hemoglobin in reticulocytes (mass per reticulocyte)Ordered By: Daron Benton on 02-29-2024 Hemoglobin (Reticulocytes) [Entitic mass] 30.1 pg 30-35 [facility] Immature granulocytes/100 WB C Auto (Bld)Ordered By: Daron Benton on 02-29-2024 Immature granulocytes/100 WBC (Bld) 0.600 % 0.0-0.9 [facility] No Panel InformationOrdered By: Daron Benton on 02-29-2024 24.6 pg 27.0-32.0 [facility] 29.1 g/dL 32-36 [facility] 211 K/mm3 150-450 [facility] 10.0 fl 6.2-12.0 [facility] 0 % 0-5 [facility] 12.20 % 3.00-15.90 [facility] 63 mL/min >60 [facility] 76 mL/min >60 [facility] 13.8 RATIO 10-20 [facility] 3.5 g/dL 2.2-4.2 [facility] 0.8 RATIO 0.9-2.4 [facility] 134 U/L 45-117 [facility] 13 U/L 13-56 [facility] 31.0 mmol/L 21.0-32.0 [facility] 386 pg/mL 211-911 [facility] 292 ng/mL 8-252 [facility] 8.20 ng/mL 3.1-55.4 [facility] RBC Auto (Bld) [#/Vol]Ordere d By: Daron Benton on 02-29-2024 RBC (Bld) [#/Vol] 4.22 10*6/uL 4.2-5.4 [facility] Reticulocytes Auto (Bld) [#/ Vol]Ordered By: Daron Benton on 02-29-2024 Reticulocytes/100 RBC (Bld) 1.50 % 0.5-1.5 [facility] Serum or plasma calcium stefania urement (mass/volume)Ordered By: Daron Benton on 02-29-2024 Calcium [Mass/Vol] 8.8 mg/dL 8.5-10.1 [facility] Serum or plasma creatinine m easurement (mass/volume)Ordered By: Daron Benton on 02-29-2024 Creatinine [Mass/Vol] 0.94 mg/dL 0.55-1.02 [facility] Serum or plasma urea nitroge n measurement (mass/volume)Ordered By: Daron Benton on 02-29-2024 Urea nitrogen [Mass/Vol] 13 mg/dL 7-18 [facility] Thin prep Papanicolaou smear with manual screeningOrdered By: Daron Benton on 02-29-2024 Thin prep Papanicolaou smear with manual screening 2.9 g/dL 3.2-5.0 [facility] Thin prep Papanicolaou smear with manual screening 15 U/L 15-37 [facility] Thin prep Papanicolaou smear with manual screening 3 5-15 [facility] Absolute lymphocyte countOrd ered By: Roman Mckeon on 02-25-2024 Lymphocytes Auto (Unsp spec) [#/Vol] 1.08 10*3/uL 0.83-4.51 [facility] Activated partial thrombopla stin time (aPTT) in platelet poor plasma by coagulation aOrdered By: Daron Cortes on 02-25-2024 aPTT Coag (PPP) [Time] 33.2 s 24.1-36.2 [facility] Automated lymphocyte count a s percentage of total leukocytesOrdered By: Roman Mckeon on 02-25-2024 Lymphocytes/100 WBC Auto (Unsp spec) 16.3 % 19-41 [facility] Basophil percentageOrdered B y: Eva Mortensen on 02-25-2024 Basophil percentage 10.7 g/dL 12.0-15.0 [facility] Basophil percentageOrdered B y: Roman Mckeon on 02-25-2024 Basophil percentage 85 mg/dL 74-106 [facility] Basophil percentage 141 mmol/L 136-145 [facility] Basophil percentage 3.8 mmol/L 3.5-5.1 [facility] Basophil percentage 110 mmol/L 98-107 [facility] Basophils (Bld) [#/Vol] 6.6 10*3/uL 4.4-11.0 [facility] Basophils (Bld) [#/Vol] 4.6 10*3/uL 2.0-7.7 [facility] Basophils/100 WBC (Bld) 68.4 % 47-70 [facility] Basophils/100 WBC (Bld) 11.3 % 0-10 [facility] Basophils/100 WBC (Bld) 2.9 % 0-5 [facility] Basophils/100 WBC (Bld) 0.5 % 0-1 [facility] Determination of erythrocyte mean corpuscular volume (MCV)Ordered By: Roman Mckeon on 02-25-2024 MCV (RBC) [Entitic vol] 83.5 fL 81-99 [facility] Erythrocyte distribution wid th ratioOrdered By: Roman Mckeon on 02-25-2024 Erythrocyte distribution width (RBC) [Ratio] 19.6 % 11.6-14.6 [facility] Erythrocyte distribution wid th standard deviationOrdered By: Roman Mckeon on 02-25-2024 Erythrocyte distribution width (RBC) [Entitic vol] 57.3 fL 35.1-43.9 [facility] Hematocrit Auto (Bld) [Volum e fraction]Ordered By: Roman Mckeon on 02-25-2024 Hematocrit (Bld) [Volume fraction] 34.3 % 37-47 [facility] Immature granulocytes/100 WB C Auto (Bld)Ordered By: Roman Mckeon on 02-25-2024 Immature granulocytes/100 WBC (Bld) 0.600 % 0.0-0.9 [facility] No Panel InformationOrdered By: Roman Mckeon on 02-25-2024 25.1 pg 27.0-32.0 [facility] 30.0 g/dL 32-36 [facility] 205 K/mm3 150-450 [facility] 9.6 fl 6.2-12.0 [facility] 0 % 0-5 [facility] 70 mL/min >60 [facility] 85 mL/min >60 [facility] 55.02 ml/min [facility] 14.1 RATIO 10-20 [facility] 26.0 mmol/L 21.0-32.0 [facility] No Panel InformationOrdered By: Daron Cortes on 02-25-2024 13.8 SECONDS 11.7-14.9 [facility] 1.1 [facility] RBC Auto (Bld) [#/Vol]Ordere d By: Roman Mckeon on 02-25-2024 RBC (Bld) [#/Vol] 4.11 10*6/uL 4.2-5.4 [facility] Serum or plasma calcium stefania urement (mass/volume)Ordered By: oRman Mckeon on 02-25-2024 Calcium [Mass/Vol] 8.5 mg/dL 8.5-10.1 [facility] Serum or plasma creatinine m easurement (mass/volume)Ordered By: Roman Mckeon on 02-25-2024 Creatinine [Mass/Vol] 0.85 mg/dL 0.55-1.02 [facility] Serum or plasma thyroid stim ulating hormone (TSH) measurement (units/volume)Ordered By: Daron Cortes on 02-25-2024 TSH Qn 3.07 uIU/mL 0.358-3.74 [facility] Serum or plasma urea nitroge n measurement (mass/volume)Ordered By: Roman Mckeon on 02-25-2024 Urea nitrogen [Mass/Vol] 12 mg/dL 7-18 [facility] Thin prep Papanicolaou smear with manual screeningOrdered By: Roman Mckeon on 02-25-2024 Thin prep Papanicolaou smear with manual screening 5 5-15 [facility] Basophil percentageOrdered B y: Roman Mckeon on 02-23-2024 Basophil percentage 2.6 mg/dL 2.5-4.9 [facility] No Panel InformationOrdered By: Roman Mckeon on 02-23-2024 28 pg/mL 3.0-54.0 [facility] 2.0 mg/dL 1.6-2.6 [facility] Bacteria identified Respirat ory culture Nom (Unsp spec)Ordered By: Roman Mckeon on 02-22-2024 Microbial respiratory culture Presumptive C albicans [facility] Basophil percentageOrdered B y: Roman Mckeon on 02-22-2024 Basophil percentage 5.2 g/dL 6.4-8.2 [facility] Basophil percentage 0.20 mg/dL 0.20-1.00 [facility] Gram stain for investigation of transfusion reactionOrdered By: Roman Mckeon on 02-22-2024 Microscopic observation Gram stain Nom (Unsp spec) [facility] No Panel InformationOrdered By: Roman Mckeon on 02-22-2024 3.0 g/dL 2.2-4.2 [facility] 0.7 RATIO 0.9-2.4 [facility] 133 U/L 45-117 [facility] 8 U/L 13-56 [facility] Thin prep Papanicolaou smear with manual screeningOrdered By: Roman Mckeon on 02-22-2024 Thin prep Papanicolaou smear with manual screening 2.2 g/dL 3.2-5.0 [facility] Thin prep Papanicolaou smear with manual screening 9 U/L 15-37 [facility] Absolute lymphocyte countOrd ered By: Jeffy Willoughby on 02-19-2024 Lymphocytes Auto (Unsp spec) [#/Vol] 1.17 10*3/uL 0.83-4.51 [facility] Automated lymphocyte count a s percentage of total leukocytesOrdered By: Jeffy Willoughby on 02-19-2024 Lymphocytes/100 WBC Auto (Unsp spec) 14.5 % 19-41 [facility] Basophil percentageOrdered B y: Jeffy Willoughby on 02-19-2024 Basophil percentage 1.0 mmol/L 0.4-2.0 [facility] Basophil percentage 6.6 g/dL 12.0-15.0 [facility] Basophil percentage 128 mg/dL 74-106 [facility] Basophil percentage 137 mmol/L 136-145 [facility] Basophil percentage 3.8 mmol/L 3.5-5.1 [facility] Basophil percentage 106 mmol/L 98-107 [facility] Basophils (Bld) [#/Vol] 8.1 10*3/uL 4.4-11.0 [facility] Basophils (Bld) [#/Vol] 5.9 10*3/uL 2.0-7.7 [facility] Basophils/100 WBC (Bld) 73.5 % 47-70 [facility] Basophils/100 WBC (Bld) 8.5 % 0-10 [facility] Basophils/100 WBC (Bld) 2.6 % 0-5 [facility] Basophils/100 WBC (Bld) 0.4 % 0-1 [facility] Determination of erythrocyte mean corpuscular volume (MCV)Ordered By: Jeffy Willoughby on 02-19-2024 MCV (RBC) [Entitic vol] 77.2 fL 81-99 [facility] Erythrocyte distribution wid th ratioOrdered By: Jeffy Willoughby on 02-19-2024 Erythrocyte distribution width (RBC) [Ratio] 17.1 % 11.6-14.6 [facility] Erythrocyte distribution wid th standard deviationOrdered By: Jeffy Willoughby on 02-19-2024 Erythrocyte distribution width (RBC) [Entitic vol] 48.0 fL 35.1-43.9 [facility] Hematocrit Auto (Bld) [Volum e fraction]Ordered By: Jeffy Willoughby on 02-19-2024 Hematocrit (Bld) [Volume fraction] 22.4 % 37-47 [facility] Immature granulocytes/100 WB C Auto (Bld)Ordered By: Jeffy Willoughby on 02-19-2024 Immature granulocytes/100 WBC (Bld) 0.500 % 0.0-0.9 [facility] Lower GI hemoglobin IA Ql (S tl)Ordered By: Jeffy Willoughby on 02-19-2024 Stool gastrointestinal hemoglobin detection by immunologic method Positive [facility] No Panel InformationOrdered By: Jeffyaura Willoughby on 02-19-2024 15 pg/mL 3.0-54.0 [facility] No growth in 5 days. [facility] 22.8 pg 27.0-32.0 [facility] 29.5 g/dL 32-36 [facility] 193 K/mm3 150-450 [facility] 10.0 fl 6.2-12.0 [facility] 0 % 0-5 [facility] 58 mL/min >60 [facility] 71 mL/min >60 [facility] 49.70 ml/min [facility] 21.0 RATIO 10-20 [facility] 25.0 mmol/L 21.0-32.0 [facility] RBC Auto (Bld) [#/Vol]Ordere d By: Jeffyaura Willoughby on 02-19-2024 RBC (Bld) [#/Vol] 2.90 10*6/uL 4.2-5.4 [facility] Serum or plasma calcium stefania urement (mass/volume)Ordered By: Jeffy Willoughby on 02-19-2024 Calcium [Mass/Vol] 8.3 mg/dL 8.5-10.1 [facility] Serum or plasma creatinine m easurement (mass/volume)Ordered By: Jeffy Willoughby on 02-19-2024 Creatinine [Mass/Vol] 1.00 mg/dL 0.55-1.02 [facility] Serum or plasma urea nitroge n measurement (mass/volume)Ordered By: Jeffyaura Willoughby on 02-19-2024 Urea nitrogen [Mass/Vol] 21 mg/dL 7-18 [facility] Thin prep Papanicolaou smear with manual screeningOrdered By: Jeffyaura Willoughby on 02-19-2024 Thin prep Papanicolaou smear with manual screening 128 mg/dL 74-106 [facility] Thin prep Papanicolaou smear with manual screening 6 5-15 [facility] Urine Legionella pneumophila antigen detectionOrdered By: Roman Mckeon on 02-19-2024 L. pneumophila Ag Ql (U) [facility] Absolute lymphocyte countOrd ered By: Daron Benton on 01-18-2024 Lymphocytes Auto (Unsp spec) [#/Vol] 1.27 10*3/uL 0.83-4.51 [facility] Automated lymphocyte count a s percentage of total leukocytesOrdered By: Daron Benton on 01-18-2024 Lymphocytes/100 WBC Auto (Unsp spec) 11.7 % 19-41 [facility] Basophil percentageOrdered B y: Daron Benton on 01-18-2024 Basophil percentage 8.9 g/dL 12.0-15.0 [facility] Basophil percentage 96 mg/dL 74-106 [facility] Basophil percentage 6.8 g/dL 6.4-8.2 [facility] Basophil percentage 0.40 mg/dL 0.20-1.00 [facility] Basophil percentage 139 mmol/L 136-145 [facility] Basophil percentage 4.1 mmol/L 3.5-5.1 [facility] Basophil percentage 106 mmol/L 98-107 [facility] Basophils (Bld) [#/Vol] 10.9 10*3/uL 4.4-11.0 [facility] Basophils (Bld) [#/Vol] 8.1 10*3/uL 2.0-7.7 [facility] Basophils/100 WBC (Bld) 74.9 % 47-70 [facility] Basophils/100 WBC (Bld) 8.6 % 0-10 [facility] Basophils/100 WBC (Bld) 2.0 % 0-5 [facility] Basophils/100 WBC (Bld) 0.8 % 0-1 [facility] Determination of erythrocyte mean corpuscular volume (MCV)Ordered By: Daron Benton on 01-18-2024 MCV (RBC) [Entitic vol] 88.1 fL 81-99 [facility] Erythrocyte distribution wid th ratioOrdered By: Daron Benton on 01-18-2024 Erythrocyte distribution width (RBC) [Ratio] 16.0 % 11.6-14.6 [facility] Erythrocyte distribution wid th standard deviationOrdered By: Daron Benton on 01-18-2024 Erythrocyte distribution width (RBC) [Entitic vol] 51.1 fL 35.1-43.9 [facility] Hematocrit Auto (Bld) [Volum e fraction]Ordered By: Daron Benton on 01-18-2024 Hematocrit (Bld) [Volume fraction] 30.4 % 37-47 [facility] Hemoglobin in reticulocytes (mass per reticulocyte)Ordered By: Daron Benton on 01-18-2024 Hemoglobin (Reticulocytes) [Entitic mass] 25.6 pg 30-35 [facility] Immature granulocytes/100 WB C Auto (Bld)Ordered By: Daron Benton on 01-18-2024 Immature granulocytes/100 WBC (Bld) 2.000 % 0.0-0.9 [facility] No Panel InformationOrdered By: Daron Benton on 01-18-2024 25.8 pg 27.0-32.0 [facility] 29.3 g/dL 32-36 [facility] 449 K/mm3 150-450 [facility] 9.0 fl 6.2-12.0 [facility] 0 % 0-5 [facility] 34.00 % 3.00-15.90 [facility] 55 mL/min >60 [facility] 66 mL/min >60 [facility] 18.9 RATIO 10-20 [facility] 4.0 g/dL 2.2-4.2 [facility] 0.7 RATIO 0.9-2.4 [facility] 161 U/L 45-117 [facility] 13 U/L 13-56 [facility] 28.0 mmol/L 21.0-32.0 [facility] 2.2 pg/mL 2.18-3.98 [facility] 808 pg/mL 211-911 [facility] 82 ng/mL 8-252 [facility] 9.40 ng/mL 3.1-55.4 [facility] RBC Auto (Bld) [#/Vol]Ordere d By: Daron Benton on 01-18-2024 RBC (Bld) [#/Vol] 3.45 10*6/uL 4.2-5.4 [facility] Reticulocytes Auto (Bld) [#/ Vol]Ordered By: Daron Benton on 01-18-2024 Reticulocytes/100 RBC (Bld) 3.70 % 0.5-1.5 [facility] Serum or plasma calcium stefania urement (mass/volume)Ordered By: Daron Benton on 01-18-2024 Calcium [Mass/Vol] 8.7 mg/dL 8.5-10.1 [facility] Serum or plasma creatinine m easurement (mass/volume)Ordered By: Daron Benton on 01-18-2024 Creatinine [Mass/Vol] 1.06 mg/dL 0.55-1.02 [facility] Serum or plasma thyroid stim ulating hormone (TSH) measurement (units/volume)Ordered By: Daron Benton on 01-18-2024 TSH Qn 3.92 uIU/mL 0.358-3.74 [facility] Serum or plasma urea nitroge n measurement (mass/volume)Ordered By: Daron Benton on 01-18-2024 Urea nitrogen [Mass/Vol] 20 mg/dL 7-18 [facility] Thin prep Papanicolaou smear with manual screeningOrdered By: Daron Benton on 01-18-2024 Thin prep Papanicolaou smear with manual screening 2.8 g/dL 3.2-5.0 [facility] Thin prep Papanicolaou smear with manual screening 12 U/L 15-37 [facility] Thin prep Papanicolaou smear with manual screening 5 5-15 [facility] Thin prep Papanicolaou smear with manual screening 1.39 ng/dL 0.76-1.46 [facility] Absolute lymphocyte countOrd ered By: Jori Garcia on 01-11-2024 Lymphocytes Auto (Unsp spec) [#/Vol] 0.76 10*3/uL 0.83-4.51 [facility] Automated lymphocyte count a s percentage of total leukocytesOrdered By: Jori Garcia on 01-11-2024 Lymphocytes/100 WBC Auto (Unsp spec) 5.2 % 19-41 [facility] Basophil percentageOrdered B y: Jori Garcia on 01-11-2024 Basophil percentage 1.3 mmol/L 0.4-2.0 [facility] Basophil percentage 0 SEEN /hpf 0-5 [facility] Basophil percentage 10.2 g/dL 12.0-15.0 [facility] Basophil percentage 159 mg/dL 74-106 [facility] Basophil percentage 137 mmol/L 136-145 [facility] Basophil percentage 3.9 mmol/L 3.5-5.1 [facility] Basophil percentage 104 mmol/L 98-107 [facility] Basophils (Bld) [#/Vol] 14.6 10*3/uL 4.4-11.0 [facility] Basophils (Bld) [#/Vol] 12.4 10*3/uL 2.0-7.7 [facility] Basophils/100 WBC (Bld) 85.1 % 47-70 [facility] Basophils/100 WBC (Bld) 7.7 % 0-10 [facility] Basophils/100 WBC (Bld) 0.2 % 0-5 [facility] Basophils/100 WBC (Bld) 0.5 % 0-1 [facility] Bilirubin Test strip Ql (U)O rdered By: Jori Garcia on 01-11-2024 Bilirubin Ql (U) Negative Negative [facility] Determination of erythrocyte mean corpuscular volume (MCV)Ordered By: Jori Garcia on 01-11-2024 MCV (RBC) [Entitic vol] 86.4 fL 81-99 [facility] Erythrocyte distribution wid th ratioOrdered By: Jori Garcia on 01-11-2024 Erythrocyte distribution width (RBC) [Ratio] 15.2 % 11.6-14.6 [facility] Erythrocyte distribution wid th standard deviationOrdered By: Jori Garcia on 01-11-2024 Erythrocyte distribution width (RBC) [Entitic vol] 48.4 fL 35.1-43.9 [facility] Hematocrit Auto (Bld) [Volum e fraction]Ordered By: Jori Garcia on 01-11-2024 Hematocrit (Bld) [Volume fraction] 32.4 % 37-47 [facility] Immature granulocytes/100 WB C Auto (Bld)Ordered By: Jori Garcia on 01-11-2024 Immature granulocytes/100 WBC (Bld) 1.300 % 0.0-0.9 [facility] Ketones Test strip Ql (U)Ord ered By: Jori Garcia on 01-11-2024 Ketones Ql (U) Negative Negative [facility] Mucus LM Ql (Urine sed)Order ed By: Jori Garcia on 01-11-2024 Mucus Ql (Urine sed) 0 SEEN /hpf [facility] Nitrite Test strip Ql (U)Ord ered By: Jori Garcia on 01-11-2024 Nitrite Ql (U) Negative Negative [facility] No Panel InformationOrdered By: Jori Garcia on 01-11-2024 17 pg/mL 3.0-54.0 [facility] 0 SEEN /hpf 0-5 [facility] 27.2 pg 27.0-32.0 [facility] 31.5 g/dL 32-36 [facility] 308 K/mm3 150-450 [facility] 9.2 fl 6.2-12.0 [facility] 0 % 0-5 [facility] 54 mL/min >60 [facility] 65 mL/min >60 [facility] 43.08 ml/min [facility] 16.8 RATIO 10-20 [facility] 2.1 mg/dL 1.6-2.6 [facility] 26.0 mmol/L 21.0-32.0 [facility] Protein Test strip Ql (U)Ord ered By: Jori Garcia on 01-11-2024 Protein Ql (U) Negative Negative [facility] RBC Auto (Bld) [#/Vol]Ordere d By: Jori Garcia on 01-11-2024 RBC (Bld) [#/Vol] 3.75 10*6/uL 4.2-5.4 [facility] Serum or plasma calcium stefania urement (mass/volume)Ordered By: Jori Garcia on 01-11-2024 Calcium [Mass/Vol] 9.1 mg/dL 8.5-10.1 [facility] Serum or plasma creatinine m easurement (mass/volume)Ordered By: Jori Garcia on 01-11-2024 Creatinine [Mass/Vol] 1.07 mg/dL 0.55-1.02 [facility] Serum or plasma urea nitroge n measurement (mass/volume)Ordered By: Jori Garcia on 01-11-2024 Urea nitrogen [Mass/Vol] 18 mg/dL 7-18 [facility] Squamous epithelial cells de tection in urine sediment by light microscopyOrdered By: Jori Garcia on 01-11-2024 Epithelial cells.squamous LM Ql (Urine sed) 0 SEEN /hpf 5-10 [facility] Thin prep Papanicolaou smear with manual screeningOrdered By: Jori Garcia on 01-11-2024 Thin prep Papanicolaou smear with manual screening 7 5-15 [facility] Urine blood detectionOrdered By: Jori Garcia on 01-11-2024 RBC Ql (U) Negative Negative [facility] Urine clarityOrdered By: Kasandra Garcia on 01-11-2024 Clarity (U) Clear Clear [facility] Urine color determinationOrd ered By: Jori Garcia on 01-11-2024 Color (U) Yellow Yellow [facility] Urine glucose detectionOrder ed By: Jori Garcia on 01-11-2024 Glucose Ql (U) Normal mg/dl Normal [facility] Urine leukocyte esterase det ection by dipstickOrdered By: Jori Garcia on 01-11-2024 Leukocyte esterase Test strip Ql (U) 25 /ul Negative [facility] Urine pHOrdered By: Jori Garcia on 01-11-2024 pH (U) 7.0 [pH] 5.0 - 8.0 [facility] Urine sediment bacteria coun t by microscopy (number/high power field)Ordered By: Jori Garcia on 01-11-2024 Bacteria LM.HPF (Urine sed) [#/Area] 0 /[HPF] None Seen [facility] Urine specific gravity measu rementOrdered By: Jori Garcia on 01-11-2024 Specific gravity (U) [Rel density] 1.010 1.002-1.03 0 [facility] Urine urobilinogen measureme ntOrdered By: Jori Garcia on 01-11-2024 Urobilinogen Ql (U) Normal mg/dl Normal [facility] Basophil percentageOrdered B y: Betsey Lindquist on 12-21-2023 Basophil percentage 9.9 g/dL 12.0-15.0 [facility] Hematocrit Auto (Bld) [Volum e fraction]Ordered By: Betsey Lindquist on 12-21-2023 Hematocrit (Bld) [Volume fraction] 32.2 % 37-47 [facility] Absolute lymphocyte countOrd ered By: Sachin Murillo on 12-07-2023 Lymphocytes Auto (Unsp spec) [#/Vol] 1.31 10*3/uL 0.83-4.51 [facility] Automated lymphocyte count a s percentage of total leukocytesOrdered By: Sachin Murillo on 12-07-2023 Lymphocytes/100 WBC Auto (Unsp spec) 17.9 % 19-41 [facility] Basophil percentageOrdered B y: Sachin Murillo on 12-07-2023 Basophil percentage 9.0 g/dL 12.0-15.0 [facility] Basophil percentage 94 mg/dL 74-106 [facility] Basophil percentage 142 mmol/L 136-145 [facility] Basophil percentage 3.6 mmol/L 3.5-5.1 [facility] Basophil percentage 111 mmol/L 98-107 [facility] Basophils (Bld) [#/Vol] 7.3 10*3/uL 4.4-11.0 [facility] Basophils (Bld) [#/Vol] 5.2 10*3/uL 2.0-7.7 [facility] Basophils/100 WBC (Bld) 71.0 % 47-70 [facility] Basophils/100 WBC (Bld) 9.8 % 0-10 [facility] Basophils/100 WBC (Bld) 0.1 % 0-1 [facility] Determination of erythrocyte mean corpuscular volume (MCV)Ordered By: Sachin Murillo on 12-07-2023 MCV (RBC) [Entitic vol] 90.7 fL 81-99 [facility] Erythrocyte distribution wid th ratioOrdered By: Sachin Murillo on 12-07-2023 Erythrocyte distribution width (RBC) [Ratio] 15.6 % 11.6-14.6 [facility] Erythrocyte distribution wid th standard deviationOrdered By: Sachin Murillo on 12-07-2023 Erythrocyte distribution width (RBC) [Entitic vol] 51.9 fL 35.1-43.9 [facility] Hematocrit Auto (Bld) [Volum e fraction]Ordered By: Sachin Murillo on 12-07-2023 Hematocrit (Bld) [Volume fraction] 27.4 % 37-47 [facility] Immature granulocytes/100 WB C Auto (Bld)Ordered By: Sachin Murillo on 12-07-2023 Immature granulocytes/100 WBC (Bld) 1.100 % 0.0-0.9 [facility] No Panel InformationOrdered By: Sachin Murillo on 12-07-2023 29.8 pg 27.0-32.0 [facility] 32.8 g/dL 32-36 [facility] 216 K/mm3 150-450 [facility] 0 % 0-5 [facility] 58 mL/min >60 [facility] 70 mL/min >60 [facility] 46.47 ml/min [facility] 29.7 RATIO 10-20 [facility] 26.0 mmol/L 21.0-32.0 [facility] Platelet mean volume Jordan-Ec ker (Bld) [Entitic vol]Ordered By: Sachin Murillo on 12-07-2023 Platelet mean volume (Bld) [Entitic vol] 9.5 fL 6.2-12.0 [facility] RBC Auto (Bld) [#/Vol]Ordere d By: Sachin Murillo on 12-07-2023 RBC (Bld) [#/Vol] 3.02 10*6/uL 4.2-5.4 [facility] Serum or plasma calcium stefania urement (mass/volume)Ordered By: Sachin Murillo on 12-07-2023 Calcium [Mass/Vol] 7.7 mg/dL 8.5-10.1 [facility] Serum or plasma creatinine m easurement (mass/volume)Ordered By: Sachin Murillo on 12-07-2023 Creatinine [Mass/Vol] 1.01 mg/dL 0.55-1.02 [facility] Serum or plasma urea nitroge n measurement (mass/volume)Ordered By: Sachin Murillo on 12-07-2023 Urea nitrogen [Mass/Vol] 30 mg/dL 7-18 [facility] Thin prep Papanicolaou smear with manual screeningOrdered By: Sachin Murillo on 12-07-2023 Thin prep Papanicolaou smear with manual screening 5 5-15 [facility] Iron measurement (mass/mass) Ordered By: Sachin Murillo on 12-06-2023 Iron (Unsp spec) [Mass/Mass] 67 ug/dL 50-170 [facility] No Panel InformationOrdered By: Sachin Murillo on 12-06-2023 203 ug/dL 250-450 [facility] 96 ng/mL 8-252 [facility] Serum or plasma iron saturat ion measurement (mass fraction)Ordered By: Sachin Murillo on 12-06-2023 Iron saturation [Mass fraction] 33.0 % 15.0-55.0 [facility] Basophil percentageOrdered B y: Jorge Hurtado on 12-04-2023 Basophil percentage 13.0 umol/L 11-32 [facility] Basophil percentage 6.4 g/dL 6.4-8.2 [facility] Basophil percentage 0.20 mg/dL 0.20-1.00 [facility] Blood manual differential co mment interpretation (narrative result)Ordered By: Sachin Murillo on 12-04-2023 Manual differential comment Jimy (Bld) [Interp] SCANNED [facility] Direct bilirubinOrdered By: Jorge Hurtado on 12-04-2023 Bilirubin.direct [Mass/Vol] 0.11 mg/dL 0.00-0.30 [facility] No Panel InformationOrdered By: Jorge Hurtado on 12-04-2023 3.7 g/dL 2.2-4.2 [facility] 127 U/L 45-117 [facility] 15 U/L 13-56 [facility] 1.65 uIU/mL 0.358-3.74 [facility] Serum or plasma albumin stefania urement (mass/volume)Ordered By: Jorge Hurtado on 12-04-2023 Albumin [Mass/Vol] 2.7 g/dL 3.2-5.0 [facility] Thin prep Papanicolaou smear with manual screeningOrdered By: Jorge Hurtado on 12-04-2023 Thin prep Papanicolaou smear with manual screening 17 U/L 15-37 [facility] Assessment of wrist artery p atency prior to arterial punctureOrdered By: Sachin Murillo on 12-03-2023 Arterial patency Wrist artery --pre arterial puncture Positive [facility] Base excessOrdered By: Jarred Murillo on 12-03-2023 Base excess Calc (BldV) [Moles/Vol] -3 mmol/L -2-2 [facility] Basophil percentageOrdered B y: Sachin Murillo on 12-03-2023 Basophil percentage 21.5 mmol/L 22-26 [facility] Basophils/100 WBC (Bld) 97 % 95-99 [facility] Basophil percentageOrdered B y: Roman Mckeon on 12-03-2023 Basophil percentage 3.0 mg/dL 2.5-4.9 [facility] CO2 (BldA) [Partial pressure ]Ordered By: Sachin Murillo on 12-03-2023 CO2 (Bld) [Partial pressure] 34.8 mm[Hg] 35-45 [facility] Glucose Glucometer (dC) [M ass/Vol]Ordered By: Sachin Murillo on 12-03-2023 Glucose [Mass/Vol] 175 mg/dL 74-106 [facility] Measurement, pHOrdered By: Carlos Murillo on 12-03-2023 pH (Unsp spec) 7.40 [pH] 7.35-7.45 [facility] No Panel InformationOrdered By: Sachin Murillo on 12-03-2023 ART [facility] L Radial [facility] Not entered [facility] Cannula [facility] 1.0 [facility] 23 mmol/L [facility] No Panel InformationOrdered By: Roman Mckeon on 12-03-2023 2.6 mg/dL 1.6-2.6 [facility] Oxygen (BldA) [Partial press ure]Ordered By: Sachin Murillo on 12-03-2023 Oxygen (Bld) [Partial pressure] 93 mmHG 75-100 [facility] Absolute lymphocyte countOrd ered By: Gabriella Simpson on 12-02-2023 Lymphocytes Auto (Unsp spec) [#/Vol] 1.89 10*3/uL 0.83-4.51 [facility] Basophil percentageOrdered B y: Gabriella Simpson on 12-02-2023 Basophil percentage 0 SEEN /hpf 0-5 [facility] Basophil percentage 109 mg/dL 74-106 [facility] Basophil percentage 140 mmol/L 136-145 [facility] Basophil percentage 3.7 mmol/L 3.5-5.1 [facility] Basophil percentage 107 mmol/L 98-107 [facility] Basophils (Bld) [#/Vol] 6.6 10*3/uL 4.4-11.0 [facility] Basophils (Bld) [#/Vol] 3.8 10*3/uL 2.0-7.7 [facility] Basophils/100 WBC (Bld) 56.3 % 47-70 [facility] Basophils/100 WBC (Bld) 0.9 % 0-5 [facility] Basophils/100 WBC (Bld) 0.8 % 0-1 [facility] Bilirubin Test strip Ql (U)O rdered By: Gabriella Simpson on 12-02-2023 Bilirubin Ql (U) Negative Negative [facility] Blood erythrocytes count (nu mber/volume)Ordered By: Gabriella Simpson on 12-02-2023 RBC (Bld) [#/Vol] 4.21 10*6/uL 4.2-5.4 [facility] Blood hemoglobin measurement (mass/volume)Ordered By: Gabriella Simpson on 12-02-2023 Hemoglobin (Bld) [Mass/Vol] 12.5 g/dL 12.0-15.0 [facility] Blood lymphocytes/100 leukoc ytesOrdered By: Gabriella Simpson on 12-02-2023 Lymphocytes/100 WBC (Bld) 28.5 % 19-41 [facility] Blood monocytes/100 leukocyt esOrdered By: Gabriella Simpson on 12-02-2023 Monocytes/100 WBC (Bld) 12.7 % 0-10 [facility] Blood platelet mean volumeOr dered By: Gabriella Simpson on 12-02-2023 Platelet mean volume (Bld) [Entitic vol] 9.1 fL 6.2-12.0 [facility] Culture, urineOrdered By: Edgar Mckeon on 12-02-2023 Bacteria identified Cx Nom (U) Culture exhibits no growth. [facility] Bacteria identified Cx Nom (U) Culture exhibits no growth. [facility] Determination of erythrocyte mean corpuscular volume (MCV)Ordered By: Gabriella Simpson on 12-02-2023 MCV (RBC) [Entitic vol] 89.1 fL 81-99 [facility] Hematocrit Auto (Bld) [Volum e fraction]Ordered By: Gabriella Simpson on 12-02-2023 Hematocrit (Bld) [Volume fraction] 37.5 % 37-47 [facility] Ketones Test strip Ql (U)Ord ered By: Gabriella Simpson on 12-02-2023 Ketones Ql (U) Negative Negative [facility] MCHC Auto (RBC) [Mass/Vol]Or dered By: Gabriella Simpson on 12-02-2023 MCHC (RBC) [Mass/Vol] 33.3 g/dL 32-36 [facility] Mucus LM Ql (Urine sed)Order ed By: Gabriella Simpson on 12-02-2023 Mucus Ql (Urine sed) 0 SEEN /hpf [facility] Nitrite Test strip Ql (U)Ord ered By: Gabriella Simpson on 12-02-2023 Nitrite Ql (U) Negative Negative [facility] No Panel InformationOrdered By: Roman Mckeon on 12-02-2023 No growth in 5 days. [facility] No growth in 5 days. [facility] No Panel InformationOrdered By: Gabriella Simpson on 12-02-2023 29.7 pg 27.0-32.0 [facility] 15.5 % 11.6-14.6 [facility] 50.4 fl 35.1-43.9 [facility] 0.800 % 0.0-0.9 [facility] 0 % 0-5 [facility] 51 mL/min >60 [facility] 61 mL/min >60 [facility] 41.54 ml/min [facility] 14.2 RATIO 10-20 [facility] 26 U/L 26-192 [facility] 25.0 mmol/L 21.0-32.0 [facility] Platelets bldOrdered By: Ene Simpson on 12-02-2023 Platelets (Bld) [#/Vol] 281 10*3/uL 150-450 [facility] Protein Test strip Ql (U)Ord ered By: Gabriella Simpson on 12-02-2023 Protein Ql (U) 15 mg/dl Negative [facility] Serum or plasma calcium stefania urement (mass/volume)Ordered By: Gabriella Simpson on 12-02-2023 Calcium [Mass/Vol] 8.8 mg/dL 8.5-10.1 [facility] Serum or plasma creatinine m easurement (mass/volume)Ordered By: Gabriella Simpson on 12-02-2023 Creatinine [Mass/Vol] 1.13 mg/dL 0.55-1.02 [facility] Serum or plasma urea nitroge n measurement (mass/volume)Ordered By: Gabriella Simpson on 12-02-2023 Urea nitrogen [Mass/Vol] 16 mg/dL 7-18 [facility] Squamous epithelial cells de tection in urine sediment by light microscopyOrdered By: Gabriella Simpson on 12-02-2023 Epithelial cells.squamous LM Ql (Urine sed) 0 SEEN /hpf 5-10 [facility] Thin prep Papanicolaou smear with manual screeningOrdered By: Gabriella Simpson on 12-02-2023 Thin prep Papanicolaou smear with manual screening 8 5-15 [facility] Urine blood detectionOrdered By: Gabriella Simpson on 12-02-2023 RBC Ql (U) Negative Negative [facility] RBC Ql (U) 0 SEEN /hpf 0-5 [facility] Urine clarityOrdered By: Ene Simpson on 12-02-2023 Clarity (U) Clear Clear [facility] Urine color determinationOrd ered By: Gabriella Simpson on 12-02-2023 Color (U) Yellow Yellow [facility] Urine glucose detectionOrder ed By: Gabriella Simpson on 12-02-2023 Glucose Ql (U) Normal mg/dl Normal [facility] Urine leukocyte esterase det ection by dipstickOrdered By: Gabriella Simpson on 12-02-2023 Leukocyte esterase Test strip Ql (U) 25 /ul Negative [facility] Urine pHOrdered By: Gabriella peoples on 12-02-2023 pH (U) 6.5 [pH] 5.0 - 8.0 [facility] Urine sediment bacteria coun t by microscopy (number/high power field)Ordered By: Gabriella Simpson on 12-02-2023 Bacteria LM.HPF (Urine sed) [#/Area] 0 /[HPF] None Seen [facility] Urine specific gravity measu rementOrdered By: Gabriella Simpson on 12-02-2023 Specific gravity (U) [Rel density] 1.015 1.002-1.03 0 [facility] Urobilinogen Auto test strip Ql (U)Ordered By: Gabriella Simpson on 12-02-2023 Urobilinogen Ql (U) Normal mg/dl Normal [facility] Absolute lymphocyte countOrd ered By: Ramírez Onofre on 11-27-2023 Lymphocytes Auto (Unsp spec) [#/Vol] 1.75 10*3/uL 0.83-4.51 [facility] Basophil percentageOrdered B y: Ramírez Onofre on 11-27-2023 Basophil percentage 106 mg/dL 74-106 [facility] Basophil percentage 140 mmol/L 136-145 [facility] Basophil percentage 3.7 mmol/L 3.5-5.1 [facility] Basophil percentage 108 mmol/L 98-107 [facility] Basophils (Bld) [#/Vol] 10.4 10*3/uL 4.4-11.0 [facility] Basophils (Bld) [#/Vol] 7.5 10*3/uL 2.0-7.7 [facility] Basophils/100 WBC (Bld) 0.4 % 0-1 [facility] Basophils/100 WBC (Bld) 71.7 % 47-70 [facility] Chloride [Moles/Vol] 108 mmol/L 98-107 [facility] Eosinophils/100 WBC (Bld) 0.4 % 0-5 [facility] Glucose [Mass/Vol] 106 mg/dL 74-106 [facility] Comment on above: Fasting Glucose resu lt from 100 to 125 mg/dL suggests IMPAIRED HOMEOSTASIS per A.D.A. criteria. Neutrophils (Bld) [#/Vol] 7.5 10*3/uL 2.0-7.7 [facility] Neutrophils/100 WBC (Bld) 71.7 % 47-70 [facility] Potassium [Moles/Vol] 3.7 mmol/L 3.5-5.1 [facility] Sodium [Moles/Vol] 140 mmol/L 136-145 [facility] WBC (Bld) [#/Vol] 10.4 10*3/uL 4.4-11.0 [facility] Blood erythrocytes count (nu mber/volume)Ordered By: Ramírez Onofre on 11-27-2023 RBC (Bld) [#/Vol] 3.89 10*6/uL 4.2-5.4 [facility] Blood hemoglobin measurement (mass/volume)Ordered By: Ramírez Onofre on 11-27-2023 Hemoglobin (Bld) [Mass/Vol] 11.6 g/dL 12.0-15.0 [facility] Blood lymphocytes/100 leukoc ytesOrdered By: Ramírez Onofre on 11-27-2023 Lymphocytes/100 WBC (Bld) 16.8 % 19-41 [facility] Blood monocytes/100 leukocyt esOrdered By: Ramírez Onofre on 11-27-2023 Monocytes/100 WBC (Bld) 9.9 % 0-10 [facility] Blood platelet mean volumeOr dered By: Ramírez Onofre on 11-27-2023 Platelet mean volume (Bld) [Entitic vol] 9.0 fL 6.2-12.0 [facility] Determination of erythrocyte mean corpuscular volume (MCV)Ordered By: Ramírez Onofre on 11-27-2023 MCV (RBC) [Entitic vol] 87.9 fL 81-99 [facility] Hematocrit Auto (Bld) [Volum e fraction]Ordered By: Ramírez Onofre on 11-27-2023 Hematocrit (Bld) [Volume fraction] 34.2 % 37-47 [facility] INR in Blood by Coagulation assayOrdered By: Ramírez Onofre on 11-27-2023 INR Coag (Bld) [Relative time] 1.0 {INR} [facility] Laboratory - Chemistry and C hemistry - challengeOrdered By: Ramírez Onofre on 01-09-2024 CO2 [Moles/Vol] 30.0 mmol/L 21.0-32.0 [facility] Urea nitrogen/Creatinine [Mass ratio] 12.8 mg/mg 10-20 [facility] Laboratory - CoagulationOrde red By: Ramírez Onofre on 11-27-2023 aPTT Coag (Bld) [Time] 27.8 s 24.1-36.2 [facility] PT Coag (PPP) [Time] 13.0 s 11.7-14.9 [facility] Laboratory - Hematology and Cell countsOrdered By: Ramírez Onofre on 11-27-2023 Erythrocyte distribution width (RBC) [Entitic vol] 48.7 fL 35.1-43.9 [facility] Erythrocyte distribution width (RBC) [Ratio] 15.3 % 11.6-14.6 [facility] Immature granulocytes/100 WBC (Bld) 0.800 % 0.0-0.9 [facility] Comment on above: IG% - Immature Granu locytes (promyelocytes, myelocytes and metamyelocytes) > 1% indicates that a LEFT SHIFT is Present. MCH (RBC) [Entitic mass] 29.8 pg 27.0-32.0 [facility] Nucleated RBC/100 WBC (Bld) [Ratio] 0 % 0-5 [facility] MCHC Auto (RBC) [Mass/Vol]Or dered By: Ramírez Onofre on 11-27-2023 MCHC (RBC) [Mass/Vol] 33.9 g/dL 32-36 [facility] Comment on above: Delta: 31.9 on 11/26-1320 No Panel InformationOrdered By: Ramírez Onofre on 11-27-2023 Estimated Creatinine Clearance Calc 41.86 ml/min [facility] Estimated GFR (MDRD) Amer 64 mL/min >60 [facility] Comment on above: GFR Calc Estimated GFR (MDRD) Non-Af Amer 53 mL/min >60 [facility] Comment on above: Non- GFR Calc Troponin I High Sensitivity 10 pg/mL 3.0-54.0 [facility] Comment on above: Please Note: New Kmi t Units and Gender Specific Reference Ranges. For more information see Policy Stat Procedure [place] High Sensitivity Troponin (TNIH) and attachments. 29.8 pg 27.0-32.0 [facility] 15.3 % 11.6-14.6 [facility] 48.7 fl 35.1-43.9 [facility] 0.800 % 0.0-0.9 [facility] 0 % 0-5 [facility] 13.0 SECONDS 11.7-14.9 [facility] 27.8 Seconds 24.1-36.2 [facility] 53 mL/min >60 [facility] 64 mL/min >60 [facility] 41.86 ml/min [facility] 12.8 RATIO 10-20 [facility] 10 pg/mL 3.0-54.0 [facility] 30.0 mmol/L 21.0-32.0 [facility] Platelets bldOrdered By: Romeo Onofre on 11-27-2023 Platelets (Bld) [#/Vol] 232 10*3/uL 150-450 [facility] Serum or plasma calcium stefania urement (mass/volume)Ordered By: Ramírez Onofre on 11-27-2023 Calcium [Mass/Vol] 8.7 mg/dL 8.5-10.1 [facility] Serum or plasma creatinine m easurement (mass/volume)Ordered By: Ramírez Onofre on 11-27-2023 Creatinine [Mass/Vol] 1.09 mg/dL 0.55-1.02 [facility] Comment on above: The validity of the calculated GFR & GFRAA in patients over 70 years has not been determined. Clinical correlation is essential. Serum or plasma urea nitroge n measurement (mass/volume)Ordered By: Ramírez Onofre on 11-27-2023 Urea nitrogen [Mass/Vol] 14 mg/dL 7-18 [facility] Thin prep Papanicolaou smear with manual screeningOrdered By: Ramírez Onofre on 11-27-2023 Thin prep Papanicolaou smear with manual screening 2 5-15 [facility] Absolute lymphocyte countOrd ered By: Justice Cid on 11-26-2023 Lymphocytes Auto (Unsp spec) [#/Vol] 1.87 10*3/uL 0.83-4.51 [facility] Basophil percentageOrdered B y: Justice Cid on 11-26-2023 Basophil percentage 120 mg/dL 74-106 [facility] Basophil percentage 142 mmol/L 136-145 [facility] Basophil percentage 4.2 mmol/L 3.5-5.1 [facility] Basophil percentage 108 mmol/L 98-107 [facility] Basophils (Bld) [#/Vol] 9.7 10*3/uL 4.4-11.0 [facility] Basophils (Bld) [#/Vol] 6.8 10*3/uL 2.0-7.7 [facility] Basophils/100 WBC (Bld) 0.5 % 0-1 [facility] Basophils/100 WBC (Bld) 69.4 % 47-70 [facility] Basophils/100 WBC (Bld) 0.4 % 0-5 [facility] Chloride [Moles/Vol] 108 mmol/L 98-107 [facility] Eosinophils/100 WBC (Bld) 0.4 % 0-5 [facility] Glucose [Mass/Vol] 120 mg/dL 74-106 [facility] Comment on above: Fasting Glucose resu lt from 100 to 125 mg/dL suggests IMPAIRED HOMEOSTASIS per A.D.A. criteria. Neutrophils (Bld) [#/Vol] 6.8 10*3/uL 2.0-7.7 [facility] Neutrophils/100 WBC (Bld) 69.4 % 47-70 [facility] Potassium [Moles/Vol] 4.2 mmol/L 3.5-5.1 [facility] Sodium [Moles/Vol] 142 mmol/L 136-145 [facility] WBC (Bld) [#/Vol] 9.7 10*3/uL 4.4-11.0 [facility] Blood erythrocytes count (nu mber/volume)Ordered By: Justice Cid on 11-26-2023 RBC (Bld) [#/Vol] 3.84 10*6/uL 4.2-5.4 [facility] Blood hemoglobin measurement (mass/volume)Ordered By: Justice Cid on 11-26-2023 Hemoglobin (Bld) [Mass/Vol] 10.9 g/dL 12.0-15.0 [facility] Blood lymphocytes/100 leukoc ytesOrdered By: Justice Cid on 11-26-2023 Lymphocytes/100 WBC (Bld) 19.2 % 19-41 [facility] Blood monocytes/100 leukocyt esOrdered By: Justice Cid on 11-26-2023 Monocytes/100 WBC (Bld) 9.7 % 0-10 [facility] Blood platelet mean volumeOr dered By: Justice Cid on 11-26-2023 Platelet mean volume (Bld) [Entitic vol] 8.9 fL 6.2-12.0 [facility] Determination of erythrocyte mean corpuscular volume (MCV)Ordered By: Justice Cid on 11-26-2023 MCV (RBC) [Entitic vol] 89.1 fL 81-99 [facility] Hematocrit Auto (Bld) [Volum e fraction]Ordered By: Justice Cid on 11-26-2023 Hematocrit (Bld) [Volume fraction] 34.2 % 37-47 [facility] Laboratory - Chemistry and C hemistry - challengeOrdered By: Justice Cid on 11-26-2023 CO2 [Moles/Vol] 31.0 mmol/L 21.0-32.0 [facility] Urea nitrogen/Creatinine [Mass ratio] 13.8 mg/mg 10-20 [facility] Laboratory - Hematology and Cell countsOrdered By: Justice Cid on 11-26-2023 Erythrocyte distribution width (RBC) [Entitic vol] 49.2 fL 35.1-43.9 [facility] Erythrocyte distribution width (RBC) [Ratio] 15.4 % 11.6-14.6 [facility] Immature granulocytes/100 WBC (Bld) 0.800 % 0.0-0.9 [facility] Comment on above: IG% - Immature Granu locytes (promyelocytes, myelocytes and metamyelocytes) > 1% indicates that a LEFT SHIFT is Present. MCH (RBC) [Entitic mass] 28.4 pg 27.0-32.0 [facility] Nucleated RBC/100 WBC (Bld) [Ratio] 0 % 0-5 [facility] MCHC Auto (RBC) [Mass/Vol]Or dered By: Justice Cid on 11-26-2023 MCHC (RBC) [Mass/Vol] 31.9 g/dL 32-36 [facility] No Panel InformationOrdered By: Justice Cid on 11-26-2023 Estimated Creatinine Clearance Calc 39.99 ml/min [facility] Estimated GFR (MDRD) Amer 60 mL/min >60 [facility] Comment on above: GFR Calc Estimated GFR (MDRD) Non-Af Amer 49 mL/min >60 [facility] Comment on above: Non- GFR Calc Troponin I High Sensitivity 10 pg/mL 3.0-54.0 [facility] Comment on above: Please Note: New Kim t Units and Gender Specific Reference Ranges. For more information see Policy Stat Procedure [place] High Sensitivity Troponin (TNIH) and attachments. 28.4 pg 27.0-32.0 [facility] 15.4 % 11.6-14.6 [facility] 49.2 fl 35.1-43.9 [facility] 0.800 % 0.0-0.9 [facility] 0 % 0-5 [facility] 49 mL/min >60 [facility] 60 mL/min >60 [facility] 39.99 ml/min [facility] 13.8 RATIO 10-20 [facility] 10 pg/mL 3.0-54.0 [facility] 31.0 mmol/L 21.0-32.0 [facility] Platelets bldOrdered By: Yeny Cid on 11-26-2023 Platelets (Bld) [#/Vol] 265 10*3/uL 150-450 [facility] Serum or plasma calcium stefania urement (mass/volume)Ordered By: Justice Cid on 11-26-2023 Calcium [Mass/Vol] 8.2 mg/dL 8.5-10.1 [facility] Serum or plasma creatinine m easurement (mass/volume)Ordered By: Justice Cid on 11-26-2023 Creatinine [Mass/Vol] 1.16 mg/dL 0.55-1.02 [facility] Comment on above: The validity of the calculated GFR & GFRAA in patients over 70 years has not been determined. Clinical correlation is essential. Serum or plasma urea nitroge n measurement (mass/volume)Ordered By: Justice Cid on 11-26-2023 Urea nitrogen [Mass/Vol] 16 mg/dL 7-18 [facility] Thin prep Papanicolaou smear with manual screeningOrdered By: Justice Cid on 11-26-2023 Thin prep Papanicolaou smear with manual screening 3 5-15 [facility] Absolute lymphocyte countOrd ered By: Sachin Murillo on 11-21-2023 Lymphocytes Auto (Unsp spec) [#/Vol] 0.67 10*3/uL 0.83-4.51 [facility] Basophil percentageOrdered B y: Sachin Murillo on 11-21-2023 Basophils (Bld) [#/Vol] 4.7 10*3/uL 4.4-11.0 [facility] Basophils (Bld) [#/Vol] 2.9 10*3/uL 2.0-7.7 [facility] Basophils/100 WBC (Bld) 0.6 % 0-1 [facility] Basophils/100 WBC (Bld) 62.0 % 47-70 [facility] Basophils/100 WBC (Bld) 0.9 % 0-5 [facility] Eosinophils/100 WBC (Bld) 0.9 % 0-5 [facility] Neutrophils (Bld) [#/Vol] 2.9 10*3/uL 2.0-7.7 [facility] Neutrophils/100 WBC (Bld) 62.0 % 47-70 [facility] WBC (Bld) [#/Vol] 4.7 10*3/uL 4.4-11.0 [facility] Blood erythrocytes count (nu mber/volume)Ordered By: Sachin Murillo on 11-21-2023 RBC (Bld) [#/Vol] 3.54 10*6/uL 4.2-5.4 [facility] Blood hemoglobin measurement (mass/volume)Ordered By: Sachin uMrillo on 11-21-2023 Hemoglobin (Bld) [Mass/Vol] 10.2 g/dL 12.0-15.0 [facility] Blood lymphocytes/100 leukoc ytesOrdered By: Sachin Murillo on 11-21-2023 Lymphocytes/100 WBC (Bld) 14.3 % 19-41 [facility] Blood monocytes/100 leukocyt esOrdered By: Sachin Murillo on 11-21-2023 Monocytes/100 WBC (Bld) 18.8 % 0-10 [facility] Blood platelet mean volumeOr dered By: Sachin Murillo on 11-21-2023 Platelet mean volume (Bld) [Entitic vol] 9.7 fL 6.2-12.0 [facility] Determination of erythrocyte mean corpuscular volume (MCV)Ordered By: Sachin Murillo on 11-21-2023 MCV (RBC) [Entitic vol] 87.0 fL 81-99 [facility] Hematocrit Auto (Bld) [Volum e fraction]Ordered By: Sachin Murillo on 11-21-2023 Hematocrit (Bld) [Volume fraction] 30.8 % 37-47 [facility] Laboratory - Hematology and Cell countsOrdered By: Sachin Murillo on 11-21-2023 Erythrocyte distribution width (RBC) [Entitic vol] 48.1 fL 35.1-43.9 [facility] Erythrocyte distribution width (RBC) [Ratio] 15.0 % 11.6-14.6 [facility] Immature granulocytes/100 WBC (Bld) 3.400 % 0.0-0.9 [facility] Comment on above: IG% - Immature Granu locytes (promyelocytes, myelocytes and metamyelocytes) > 1% indicates that a LEFT SHIFT is Present. MCH (RBC) [Entitic mass] 28.8 pg 27.0-32.0 [facility] Nucleated RBC/100 WBC (Bld) [Ratio] 0 % 0-5 [facility] MCHC Auto (RBC) [Mass/Vol]Or dered By: Sachin Murillo on 11-21-2023 MCHC (RBC) [Mass/Vol] 33.1 g/dL 32-36 [facility] No Panel InformationOrdered By: Sachin Murillo on 11-21-2023 28.8 pg 27.0-32.0 [facility] 15.0 % 11.6-14.6 [facility] 48.1 fl 35.1-43.9 [facility] 3.400 % 0.0-0.9 [facility] 0 % 0-5 [facility] Platelets bldOrdered By: Ciro Murillo on 11-21-2023 Platelets (Bld) [#/Vol] 141 10*3/uL 150-450 [facility] Basophil percentageOrdered B y: Sachin Murillo on 11-20-2023 Basophil percentage 94 mg/dL 74-106 [facility] Basophil percentage 137 mmol/L 136-145 [facility] Basophil percentage 3.4 mmol/L 3.5-5.1 [facility] Basophil percentage 106 mmol/L 98-107 [facility] Chloride [Moles/Vol] 106 mmol/L 98-107 [facility] Glucose [Mass/Vol] 94 mg/dL 74-106 [facility] Potassium [Moles/Vol] 3.4 mmol/L 3.5-5.1 [facility] Sodium [Moles/Vol] 137 mmol/L 136-145 [facility] Blood manual differential co mment interpretation (narrative result)Ordered By: Sachin Murillo on 11-20-2023 Manual differential comment Jimy (Bld) [Interp] COMMENT [facility] Comment on above: LYMPHOPENIA. Laboratory - Chemistry and C hemistry - challengeOrdered By: Sachin Murillo on 11-20-2023 CO2 [Moles/Vol] 21.0 mmol/L 21.0-32.0 [facility] Urea nitrogen/Creatinine [Mass ratio] 11.5 mg/mg 10-20 [facility] No Panel InformationOrdered By: Sachin Murillo on 11-20-2023 Estimated Creatinine Clearance Calc 53.47 ml/min [facility] Estimated GFR (MDRD) Amer 83 mL/min >60 [facility] Comment on above: GFR Calc Estimated GFR (MDRD) Non-Af Amer 69 mL/min >60 [facility] Comment on above: Non- GFR Calc 69 mL/min >60 [facility] 83 mL/min >60 [facility] 53.47 ml/min [facility] 11.5 RATIO 10-20 [facility] 21.0 mmol/L 21.0-32.0 [facility] No Panel InformationOrdered By: Roman Hewitt on 01-02-2024 Troponin I High Sensitivity 26 pg/mL 3.0-54.0 [facility] Comment on above: Please Note: New Kim t Units and Gender Specific Reference Ranges. For more information see Policy Stat Procedure [place] High Sensitivity Troponin (TNIH) and attachments. 26 pg/mL 3.0-54.0 [facility] Serum or plasma calcium stefania urement (mass/volume)Ordered By: Sachin Murillo on 11-20-2023 Calcium [Mass/Vol] 8.0 mg/dL 8.5-10.1 [facility] Serum or plasma creatinine m easurement (mass/volume)Ordered By: Sachin Murillo on 11-20-2023 Creatinine [Mass/Vol] 0.87 mg/dL 0.55-1.02 [facility] Comment on above: The validity of the calculated GFR & GFRAA in patients over 70 years has not been determined. Clinical correlation is essential. Serum or plasma urea nitroge n measurement (mass/volume)Ordered By: Sachin Murillo on 11-20-2023 Urea nitrogen [Mass/Vol] 10 mg/dL 7-18 [facility] Thin prep Papanicolaou smear with manual screeningOrdered By: Sachin [facility] on 11-20-2023 Thin prep Papanicolaou smear with manual screening 10 5-15 [facility] Basophil percentageOrdered B y: Sommer White on 11-19-2023 Basophil percentage 5.5 g/dL 6.4-8.2 [facility] Basophil percentage 0.50 mg/dL 0.20-1.00 [facility] Basophil percentage 116 mg/dL <199 [facility] Bilirubin [Mass/Vol] 0.50 mg/dL 0.20-1.00 [facility] Comment on above: For patients on eltr ombopag therapy, use of Dimension [place] TBIL is not recommended. Cholesterol [Mass/Vol] 116 mg/dL <200 [facility] Comment on above: <200 mg/dL Desirable 200-240 mg/dL Borderline >240 mg/dL High Risk Protein [Mass/Vol] 5.5 g/dL 6.4-8.2 [facility] Triglyceride [Mass/Vol] 116 mg/dL <199 [facility] Comment on above: The drugs N-Acetylcy steine and Metamizole may falsely depress this assay.Serum Triglycerides Reference Interval Normal <150 mg/dL Borderline high 150 - 199 mg/dL High 200 - 499 mg/dL Very High > or = 500 mg/dL Laboratory - Chemistry and C hemistry - challengeOrdered By: Sommer Resendiz on 11-19-2023 ALP [Catalytic activity/Vol] 79 U/L 45-117 [facility] ALT [Catalytic activity/Vol] 16 U/L [facility] Free T4 [Mass/Vol] 1.66 ng/dL 0.76-1.46 [facility] Globulin (S) [Mass/Vol] 2.9 g/dL 2.2-4.2 [facility] No Panel InformationOrdered By: Sommer Resendiz 11-19-2023 Thyroid Stimulating Hormone (TSH) 1.42 uIU/mL 0.358-3.74 [facility] 2.9 g/dL 2.2-4.2 [facility] 79 U/L 45- [facility] 16 U/L [facility] 1.42 uIU/mL 0.358-3.74 [facility] 1.66 ng/dL 0.76-1.46 [facility] Serum or plasma albumin stefania urement (mass/volume)Ordered By: Sommer Resendiz on 11-19-2023 Albumin [Mass/Vol] 2.6 g/dL 3.2-5.0 [facility] Serum or plasma albumin/glob ulin mass ratioOrdered By: Sommer Resendiz 11-19-2023 Albumin/Globulin [Mass ratio] 0.9 {ratio} 0.9-2.4 [facility] Serum or plasma cholesterol in HDL measurement (mass/volume)Ordered By: Sommer Resendiz on 11-19-2023 Cholesterol in HDL [Mass/Vol] 30 mg/dL >40 [facility] Comment on above: The drugs N-Acetylcy steine and Metamizole may falsely depress this assay. Reference Range HDL <40 mg/dL Low HDL Cholesterol HDL >or= 60 mg/dL High HDL Cholesterol Serum or plasma cholesterol in VLDL measurement (mass/volume)Ordered By: Sommer Resendiz on 11-19-2023 Cholesterol in VLDL [Mass/Vol] 23 mg/dL 5-40 [facility] Serum or plasma low density lipoprotein (LDL) cholesterol measurement (mass/volume)Ordered By: Sommer Resendiz on 11-19-2023 Cholesterol in LDL [Mass/Vol] 63 mg/dL 0-130 [facility] Thin prep Papanicolaou smear with manual screeningOrdered By: Sommer Resendiz on 11-19-2023 Thin prep Papanicolaou smear with manual screening 17 U/L 15-37 [facility] Absolute lymphocyte countOrd ered By: Michele Kebede on 11-18-2023 Lymphocytes Auto (Unsp spec) [#/Vol] 1.07 10*3/uL 0.83-4.51 [facility] Basophil percentageOrdered B y: Michele Kebede on 11-18-2023 Basophil percentage 0-5 SEEN /hpf 0-5 [facility] Basophils/100 WBC (Bld) 0.4 % 0-1 [facility] Bilirubin [Mass/Vol] 0.40 mg/dL 0.20-1.00 [facility] Comment on above: For patients on eltr ombopag therapy, use of Dimension [place] TBIL is not recommended. Chloride [Moles/Vol] 110 mmol/L 98-107 [facility] Eosinophils/100 WBC (Bld) 0.2 % 0-5 [facility] Glucose [Mass/Vol] 116 mg/dL 74-106 [facility] Comment on above: Fasting Glucose resu lt from 100 to 125 mg/dL suggests IMPAIRED HOMEOSTASIS per A.D.A. criteria. Neutrophils (Bld) [#/Vol] 3.7 10*3/uL 2.0-7.7 [facility] Neutrophils/100 WBC (Bld) 66.4 % 47-70 [facility] Potassium [Moles/Vol] 3.5 mmol/L 3.5-5.1 [facility] Protein [Mass/Vol] 6.5 g/dL 6.4-8.2 [facility] Sodium [Moles/Vol] 140 mmol/L 136-145 [facility] WBC (Bld) [#/Vol] 5.5 10*3/uL 4.4-11.0 [facility] Bilirubin Test strip Ql (U)O rdered By: Michele Kebede on 11-18-2023 Bilirubin Ql (U) Negative Negative [facility] Blood erythrocytes count (nu mber/volume)Ordered By: Michele Kebede on 11-18-2023 RBC (Bld) [#/Vol] 4.56 10*6/uL 4.2-5.4 [facility] Blood hemoglobin measurement (mass/volume)Ordered By: Michele Kebede on 11-18-2023 Hemoglobin (Bld) [Mass/Vol] 12.9 g/dL 12.0-15.0 [facility] Blood lymphocytes/100 leukoc ytesOrdered By: Michele Kebede on 11-18-2023 Lymphocytes/100 WBC (Bld) 19.4 % 19-41 [facility] Blood monocytes/100 leukocyt esOrdered By: Michele Kebede on 11-18-2023 Monocytes/100 WBC (Bld) 12.9 % 0-10 [facility] Blood platelet mean volumeOr dered By: Michele Kebede on 11-18-2023 Platelet mean volume (Bld) [Entitic vol] 10.3 fL 6.2-12.0 [facility] Determination of erythrocyte mean corpuscular volume (MCV)Ordered By: Michele Kebede on 11-18-2023 MCV (RBC) [Entitic vol] 85.7 fL 81-99 [facility] Hematocrit Auto (Bld) [Volum e fraction]Ordered By: Michele Kebede on 11-18-2023 Hematocrit (Bld) [Volume fraction] 39.1 % 37-47 [facility] Ketones Test strip Ql (U)Ord ered By: Michele Kebede on 11-18-2023 Ketones Ql (U) 5 mg/dl Negative [facility] Laboratory - Chemistry and C hemistry - challengeOrdered By: Michele Kebede on 11-18-2023 ALP [Catalytic activity/Vol] 93 U/L 45-117 [facility] ALT [Catalytic activity/Vol] 18 U/L 13-56 [facility] CO2 [Moles/Vol] 22.0 mmol/L 21.0-32.0 [facility] Globulin (S) [Mass/Vol] 3.4 g/dL 2.2-4.2 [facility] Urea nitrogen/Creatinine [Mass ratio] 12.2 mg/mg 10-20 [facility] Laboratory - Chemistry and C hemistry - challengeOrdered By: Sommer Resendiz on 11-18-2023 Magnesium [Mass/Vol] 1.8 mg/dL 1.6-2.6 [facility] Laboratory - Hematology and Cell countsOrdered By: Michele Kebede on 11-18-2023 Erythrocyte distribution width (RBC) [Entitic vol] 46.5 fL 35.1-43.9 [facility] Erythrocyte distribution width (RBC) [Ratio] 14.8 % 11.6-14.6 [facility] Immature granulocytes/100 WBC (Bld) 0.700 % 0.0-0.9 [facility] Comment on above: IG% - Immature Granu locytes (promyelocytes, myelocytes and metamyelocytes) > 1% indicates that a LEFT SHIFT is Present. MCH (RBC) [Entitic mass] 28.3 pg 27.0-32.0 [facility] Nucleated RBC/100 WBC (Bld) [Ratio] 0 % 0-5 [facility] MCHC Auto (RBC) [Mass/Vol]Or dered By: Michele Kebede on 11-18-2023 MCHC (RBC) [Mass/Vol] 33.0 g/dL 32-36 [facility] Mucus LM Ql (Urine sed)Order ed By: Michele Kebede on 11-18-2023 Mucus Ql (Urine sed) 0 SEEN /hpf [facility] Nitrite Test strip Ql (U)Ord ered By: Michele Kebede on 11-18-2023 Nitrite Ql (U) Negative Negative [facility] No Panel InformationOrdered By: Michele Kebede on 11-18-2023 Estimated Creatinine Clearance Calc 48.26 ml/min [facility] Estimated GFR (MDRD) Amer 72 mL/min >60 [facility] Comment on above: GFR Calc Estimated GFR (MDRD) Non-Af Amer 59 mL/min >60 [facility] Comment on above: Non- GFR Calc Troponin I High Sensitivity 60 pg/mL 3.0-54.0 [facility] Comment on above: Please Note: New Kim t Units and Gender Specific Reference Ranges. For more information see Policy Stat Procedure [place] High Sensitivity Troponin (TNIH) and attachments. No Panel InformationOrdered By: Sommer Resendiz on 11-18-2023 1.8 mg/dL 1.6-2.6 [facility] Platelets bldOrdered By: Randee smith Delio on 11-18-2023 Platelets (Bld) [#/Vol] 123 10*3/uL 150-450 [facility] Protein Test strip Ql (U)Ord ered By: Michele Kebede on 11-18-2023 Protein Ql (U) Negative Negative [facility] Serum or plasma albumin stefania urement (mass/volume)Ordered By: Michele Kebede on 11-18-2023 Albumin [Mass/Vol] 3.1 g/dL 3.2-5.0 [facility] Serum or plasma albumin/glob ulin mass ratioOrdered By: Michele Kebede on 11-18-2023 Albumin/Globulin [Mass ratio] 0.9 {ratio} 0.9-2.4 [facility] Serum or plasma calcium stefania urement (mass/volume)Ordered By: Michele Kebede on 11-18-2023 Calcium [Mass/Vol] 8.0 mg/dL 8.5-10.1 [facility] Serum or plasma creatinine m easurement (mass/volume)Ordered By: Michele Kebede on 11-18-2023 Creatinine [Mass/Vol] 0.99 mg/dL 0.55-1.02 [facility] Comment on above: The validity of the calculated GFR & GFRAA in patients over 70 years has not been determined. Clinical correlation is essential. Serum or plasma urea nitroge n measurement (mass/volume)Ordered By: Michele Kebede on 11-18-2023 Urea nitrogen [Mass/Vol] 12 mg/dL 7-18 [facility] Squamous epithelial cells de tection in urine sediment by light microscopyOrdered By: Michele Kebede on 11-18-2023 Epithelial cells.squamous LM Ql (Urine sed) 5-10 SEEN /hpf 5-10 [facility] Stool gastrointestinal hemog lobin detection by immunologic methodOrdered By: Michele Kebede on 11-18-2023 Lower GI hemoglobin IA Ql (Stl) [facility] Lower GI hemoglobin IA Ql (Stl) [facility] Thin prep Papanicolaou smear with manual screeningOrdered By: Michele Kebede on 11-18-2023 Thin prep Papanicolaou smear with manual screening 17 U/L 15-37 [facility] Thin prep Papanicolaou smear with manual screening 8 5-15 [facility] Urine blood detectionOrdered By: Michele Kebede on 11-18-2023 RBC Ql (U) 25 /ul Negative [facility] RBC Ql (U) 0-5 SEEN /hpf 0-5 [facility] Urine clarityOrdered By: Randee Kebede on 11-18-2023 Clarity (U) Clear Clear [facility] Urine color determinationOrd ered By: Michele Kebede on 11-18-2023 Color (U) Yellow Yellow [facility] Urine glucose detectionOrder ed By: Michele Kebede on 11-18-2023 Glucose Ql (U) Normal mg/dl Normal [facility] Urine leukocyte esterase det ection by dipstickOrdered By: Michele Kebede on 11-18-2023 Leukocyte esterase Test strip Ql (U) 25 /ul Negative [facility] Urine pHOrdered By: Michele gutierrez on 11-18-2023 pH (U) 6.0 [pH] 5.0 - 8.0 [facility] Urine sediment bacteria coun t by microscopy (number/high power field)Ordered By: Michele Kebede on 11-18-2023 Bacteria LM.HPF (Urine sed) [#/Area] 1 /[HPF] None Seen [facility] Urine specific gravity measu rementOrdered By: Michele Kebede on 11-18-2023 Specific gravity (U) [Rel density] 1.015 1.002-1.03 0 [facility] Urobilinogen Auto test strip Ql (U)Ordered By: Michele Kebede on 11-18-2023 Urobilinogen Ql (U) Normal mg/dl Normal [facility] Absolute lymphocyte countOrd ered By: Sommer Resendiz on 11-16-2023 Lymphocytes Auto (Unsp spec) [#/Vol] 0.96 10*3/uL 0.83-4.51 [facility] Basophil percentageOrdered B y: on 11-16-2023 Basophil percentage 73 mg/dL 74-106 [facility] Basophil percentage 5.9 g/dL 6.4-8.2 [facility] Basophil percentage 0.40 mg/dL 0.20-1.00 [facility] Basophil percentage 135 mmol/L 136-145 [facility] Basophil percentage 3.6 mmol/L 3.5-5.1 [facility] Basophil percentage 107 mmol/L 98-107 [facility] Basophils (Bld) [#/Vol] 3.8 10*3/uL 4.4-11.0 [facility] Basophils (Bld) [#/Vol] 2.2 10*3/uL 2.0-7.7 [facility] Basophils/100 WBC (Bld) 0.3 % 0-1 [facility] Basophils/100 WBC (Bld) 57.7 % 47-70 [facility] Bilirubin [Mass/Vol] 0.40 mg/dL 0.20-1.00 [facility] Comment on above: For patients on eltr ombopag therapy, use of Dimension [place] TBIL is not recommended. Chloride [Moles/Vol] 107 mmol/L 98-107 [facility] Eosinophils/100 WBC (Bld) 0.3 % 0-5 [facility] Glucose [Mass/Vol] 73 mg/dL 74-106 [facility] Neutrophils (Bld) [#/Vol] 2.2 10*3/uL 2.0-7.7 [facility] Neutrophils/100 WBC (Bld) 57.7 % 47-70 [facility] Potassium [Moles/Vol] 3.6 mmol/L 3.5-5.1 [facility] Protein [Mass/Vol] 5.9 g/dL 6.4-8.2 [facility] Sodium [Moles/Vol] 135 mmol/L 136-145 [facility] WBC (Bld) [#/Vol] 3.8 10*3/uL 4.4-11.0 [facility] Blood erythrocytes count (nu mber/volume)Ordered By: White on 11-16-2023 RBC (Bld) [#/Vol] 4.20 10*6/uL 4.2-5.4 [facility] Blood hemoglobin measurement (mass/volume)Ordered By: White on 11-16-2023 Hemoglobin (Bld) [Mass/Vol] 12.2 g/dL 12.0-15.0 [facility] Blood lymphocytes/100 leukoc ytesOrdered By: White on 11-16-2023 Lymphocytes/100 WBC (Bld) 25.5 % 19-41 [facility] Blood monocytes/100 leukocyt esOrdered By: Martín on 11-16-2023 Monocytes/100 WBC (Bld) 15.7 % 0-10 [facility] Blood platelet mean volumeOr dered By: Sommer Martín on 11-16-2023 Platelet mean volume (Bld) [Entitic vol] 10.1 fL 6.2-12.0 [facility] Determination of erythrocyte mean corpuscular volume (MCV)Ordered By: Sommer Resendiz on 11-16-2023 MCV (RBC) [Entitic vol] 88.3 fL 81-99 [facility] Hematocrit Auto (Bld) [Volum e fraction]Ordered By: Sommer Martín on 11-16-2023 Hematocrit (Bld) [Volume fraction] 37.1 % 37-47 [facility] Laboratory - Chemistry and C hemistry - challengeOrdered By: Sommer Martín on 11-16-2023 ALP [Catalytic activity/Vol] 90 U/L 45-117 [facility] ALT [Catalytic activity/Vol] 23 U/L 13-56 [facility] CO2 [Moles/Vol] 21.0 mmol/L 21.0-32.0 [facility] Globulin (S) [Mass/Vol] 3.0 g/dL 2.2-4.2 [facility] Urea nitrogen/Creatinine [Mass ratio] 26.4 mg/mg 10-20 [facility] Laboratory - Hematology and Cell countsOrdered By: Sommer Martín on 11-16-2023 Erythrocyte distribution width (RBC) [Entitic vol] 48.2 fL 35.1-43.9 [facility] Erythrocyte distribution width (RBC) [Ratio] 14.8 % 11.6-14.6 [facility] Immature granulocytes/100 WBC (Bld) 0.500 % 0.0-0.9 [facility] Comment on above: IG% - Immature Granu locytes (promyelocytes, myelocytes and metamyelocytes) > 1% indicates that a LEFT SHIFT is Present. MCH (RBC) [Entitic mass] 29.0 pg 27.0-32.0 [facility] Nucleated RBC/100 WBC (Bld) [[facility]] 0 % [facility]5 [facility] [Mass/Vol]Or dered By: Sommer Resendiz on 11-16-2023 MCHC (RBC) [Mass/Vol] 32.9 g/dL 32-36 [facility] No Panel InformationOrdered By: Sommer Resendiz on 11-16-2023 Estimated Creatinine Clearance Calc 28.68 ml/min [facility] Estimated GFR (MDRD) Amer 41 mL/min >60 [facility] Comment on above: GFR Calc Estimated GFR (MDRD) Non-Af Amer 34 mL/min >60 [facility] Comment on above: Non- GFR Calc 29.0 pg 27.0-32.0 [facility] 14.8 % 11.6-14.6 [facility] 48.2 fl 35.1-43.9 [facility] 0.500 % 0.0-0.9 [facility] 0 % 0-5 [facility] 34 mL/min >60 [facility] 41 mL/min >60 [facility] 28.68 ml/min [facility] 26.4 RATIO 10-20 [facility] 3.0 g/dL 2.2-4.2 [facility] 90 U/L 45-117 [facility] 23 U/L 13-56 [facility] 21.0 mmol/L 21.0-32.0 [facility] Platelets bldOrdered By: Julian Resendiz on 11-16-2023 Platelets (Bld) [#/Vol] 136 10*3/uL 150-450 [facility] Serum or plasma albumin stefania urement (mass/volume)Ordered By: Sommer Resendiz on 11-16-2023 Albumin [Mass/Vol] 2.9 g/dL 3.2-5.0 [facility] Serum or plasma albumin/glob ulin mass ratioOrdered By: Sommer Resendiz on 11-16-2023 Albumin/Globulin [Mass ratio] 1.0 {ratio} 0.9-2.4 [facility] Serum or plasma calcium stefania urement (mass/volume)Ordered By: Sommer Resendiz on 11-16-2023 Calcium [Mass/Vol] 7.4 mg/dL 8.5-10.1 [facility] Serum or plasma creatinine m easurement (mass/volume)Ordered By: Sommer Resendiz on 11-16-2023 Creatinine [Mass/Vol] 1.59 mg/dL 0.55-1.02 [facility] Comment on above: The validity of the calculated GFR & GFRAA in patients over 70 years has not been determined. Clinical correlation is essential. Serum or plasma urea nitroge n measurement (mass/volume)Ordered By: Sommer Resendiz on 11-16-2023 Urea nitrogen [Mass/Vol] 42 mg/dL 7-18 [facility] Thin prep Papanicolaou smear with manual screeningOrdered By: Sommer Resendiz on 11-16-2023 Thin prep Papanicolaou smear with manual screening 28 U/L 15-37 [facility] Thin prep Papanicolaou smear with manual screening 7 5-15 [facility] Absolute lymphocyte countOrd ered By: Michele Kebede on 11-15-2023 Lymphocytes Auto (Unsp spec) [#/Vol] 0.70 10*3/uL 0.83-4.51 [facility] Basophil percentageOrdered B y: Michele Kebede on 11-15-2023 Basophil percentage 5-10 SEEN /hpf 0-5 [facility] Basophils/100 WBC (Bld) 0.2 % 0-1 [facility] Bilirubin [Mass/Vol] 0.30 mg/dL 0.20-1.00 [facility] Comment on above: For patients on eltr ombopag therapy, use of Dimension Bonaparte TBIL is not recommended. Chloride [Moles/Vol] 97 mmol/L 98-107 [facility] Eosinophils/100 WBC (Bld) 0.0 % 0-5 [facility] Glucose [Mass/Vol] 80 mg/dL 74-106 [facility] Neutrophils (Bld) [#/Vol] 3.4 10*3/uL 2.0-7.7 [facility] Neutrophils/100 WBC (Bld) 70.4 % 47-70 [facility] Potassium [Moles/Vol] 3.9 mmol/L 3.5-5.1 [facility] Protein [Mass/Vol] 6.9 g/dL 6.4-8.2 [facility] Sodium [Moles/Vol] 130 mmol/L 136-145 [facility] WBC (Bld) [#/Vol] 4.9 10*3/uL 4.4-11.0 [facility] Bilirubin Test strip Ql (U)O rdered By: Michele Kebede on 11-15-2023 Bilirubin Ql (U) Negative Negative [facility] Blood erythrocytes count (nu mber/volume)Ordered By: Michele Kebede on 11-15-2023 RBC (Bld) [#/Vol] 4.74 10*6/uL 4.2-5.4 [facility] Blood hemoglobin measurement (mass/volume)Ordered By: Michele Kebede on 11-15-2023 Hemoglobin (Bld) [Mass/Vol] 13.7 g/dL 12.0-15.0 [facility] Blood lymphocytes/100 leukoc ytesOrdered By: Michele Kebede on 11-15-2023 Lymphocytes/100 WBC (Bld) 14.3 % 19-41 [facility] Blood monocytes/100 leukocyt esOrdered By: Michele Kebede on 11-15-2023 Monocytes/100 WBC (Bld) 14.5 % 0-10 [facility] Blood platelet mean volumeOr dered By: Michele Kebede on 11-15-2023 Platelet mean volume (Bld) [Entitic vol] 10.1 fL 6.2-12.0 [facility] Calcium oxalate crystals det ection in urine sediment by light microscopyOrdered By: Michele Kebede on 11-15-2023 Calcium oxalate crystals LM Ql (Urine sed) RARE /hpf [facility] Determination of erythrocyte mean corpuscular volume (MCV)Ordered By: Michele Kebede on 11-15-2023 MCV (RBC) [Entitic vol] 86.3 fL 81-99 [facility] Hematocrit Auto (Bld) [Volum e fraction]Ordered By: Michele Kebede on 11-15-2023 Hematocrit (Bld) [Volume fraction] 40.9 % 37-47 [facility] Ketones Test strip Ql (U)Ord ered By: Michele Kebede on 11-15-2023 Ketones Ql (U) 5 mg/dl Negative [facility] Laboratory - Chemistry and C hemistry - challengeOrdered By: Michele Kebede on 11-15-2023 ALP [Catalytic activity/Vol] 104 U/L 45-117 [facility] ALT [Catalytic activity/Vol] 27 U/L 13-56 [facility] CO2 [Moles/Vol] 21.0 mmol/L 21.0-32.0 [facility] Globulin (S) [Mass/Vol] 3.6 g/dL 2.2-4.2 [facility] Lipase [Catalytic activity/Vol] 60 U/L 13-75 [facility] Comment on above: Please note:LIPASE r evised reference range effective 23. New Lipase methodology. Expected to produce lower values than the previous assay method. NEW Reference Range: 13 - 75 U/L Urea nitrogen/Creatinine [Mass ratio] 25.5 mg/mg 10-20 [facility] Laboratory - Hematology and Cell countsOrdered By: Michele Kebede on 11-15-2023 Erythrocyte distribution width (RBC) [Entitic vol] 46.6 fL 35.1-43.9 [facility] Erythrocyte distribution width (RBC) [Ratio] 14.6 % 11.6-14.6 [facility] Immature granulocytes/100 WBC (Bld) 0.600 % 0.0-0.9 [facility] Comment on above: IG% - Immature Granu locytes (promyelocytes, myelocytes and metamyelocytes) > 1% indicates that a LEFT SHIFT is Present. MCH (RBC) [Entitic mass] 28.9 pg 27.0-32.0 [facility] Nucleated RBC/100 WBC (Bld) [Ratio] 0 % 0-5 [facility] Laboratory - Microbiology an d Antimicrobial susceptibilityOrdered By: Michele Kebede on 11-15-2023 SARS-CoV-2 (COVID-19) RNA JAYDON+probe Ql (Unsp spec) Influenzae A [facility] MCHC Auto (RBC) [Mass/Vol]Or dered By: Michele Kebede on 11-15-2023 MCHC (RBC) [Mass/Vol] 33.5 g/dL 32-36 [facility] Mucus LM Ql (Urine sed)Order ed By: Michele Kebede on 11-15-2023 Mucus Ql (Urine sed) 0 SEEN /hpf [facility] Nitrite Test strip Ql (U)Ord ered By: Michele Kebede on 11-15-2023 Nitrite Ql (U) Negative Negative [facility] No Panel InformationOrdered By: Michele Kebede on 11-15-2023 Influenzae A [facility] Influenzae A [facility] Estimated Creatinine Clearance Calc 19.03 ml/min [facility] Estimated GFR (MDRD) Amer 24 mL/min >60 [facility] Comment on above: GFR Calc Estimated GFR (MDRD) Non-Af Amer 20 mL/min >60 [facility] Comment on above: Non- GFR Calc 60 U/L 13-75 [facility] Platelets bldOrdered By: Randee Kebede on 11-15-2023 Platelets (Bld) [#/Vol] 164 10*3/uL 150-450 [facility] Protein Test strip Ql (U)Ord ered By: Michele Kebede on 11-15-2023 Protein Ql (U) 15 mg/dl Negative [facility] Serum or plasma albumin stefania urement (mass/volume)Ordered By: Michele Kebede on 11-15-2023 Albumin [Mass/Vol] 3.3 g/dL 3.2-5.0 [facility] Serum or plasma albumin/glob ulin mass ratioOrdered By: Michele Kebede on 11-15-2023 Albumin/Globulin [Mass ratio] 0.9 {ratio} 0.9-2.4 [facility] Serum or plasma calcium stefania urement (mass/volume)Ordered By: Michele Kebede on 11-15-2023 Calcium [Mass/Vol] 8.1 mg/dL 8.5-10.1 [facility] Serum or plasma creatinine m easurement (mass/volume)Ordered By: Michele Kebede on 11-15-2023 Creatinine [Mass/Vol] 2.51 mg/dL 0.55-1.02 [facility] Comment on above: The validity of the calculated GFR & GFRAA in patients over 70 years has not been determined. Clinical correlation is essential. Serum or plasma urea nitroge n measurement (mass/volume)Ordered By: Michele Kebede on 11-15-2023 Urea nitrogen [Mass/Vol] 64 mg/dL 7-18 [facility] Serum procalcitonin measurem entOrdered By: Sommer Resendiz on 11-15-2023 Procalcitonin [Mass/Vol] 0.24 ng/mL 0.00-0.09 [facility] Comment on above: A procalcitonin (PCT ) [...] Ql (Urine sed) 5-10 SEEN /hpf 5-10 [facility] Thin prep Papanicolaou smear with manual screeningOrdered By: Michele Kebede on 11-15-2023 Thin prep Papanicolaou smear with manual screening 34 U/L 15-37 [facility] Thin prep Papanicolaou smear with manual screening 12 5-15 [facility] Urine blood detectionOrdered By: Michele Kebede on 11-15-2023 RBC Ql (U) 25 /ul Negative [facility] RBC Ql (U) 0-5 SEEN /hpf 0-5 [facility] Urine clarityOrdered By: Randee Kebede on 11-15-2023 Clarity (U) Sl. Cloudy Clear [facility] Urine color determinationOrd ered By: Michele Kebede on 11-15-2023 Color (U) Yellow Yellow [facility] Urine glucose detectionOrder ed By: Michele Kebede on 11-15-2023 Glucose Ql (U) Normal mg/dl Normal [facility] Urine leukocyte esterase det ection by dipstickOrdered By: Michele Kebede on 11-15-2023 Leukocyte esterase Test strip Ql (U) 100 /ul Negative [facility] Urine pHOrdered By: Michele gutierrez on 11-15-2023 pH (U) 5.0 [pH] 5.0 - 8.0 [facility] Urine sediment bacteria coun t by microscopy (number/high power field)Ordered By: Michele Kebede on 11-15-2023 Bacteria LM.HPF (Urine sed) [#/Area] RARE /hpf None Seen [facility] Urine specific gravity measu rementOrdered By: Michele Kebede on 11-15-2023 Specific gravity (U) [Rel density] 1.015 1.002-1.03 0 [facility] Urobilinogen Auto test strip Ql (U)Ordered By: Michele Kebede on 11-15-2023 Urobilinogen Ql (U) Normal mg/dl Normal [facility] IR ARTERIOGRAM EXTREMITY HUNG ATERAL LOWERon 11-13-2023 IR ARTERIOGRAM EXTREMITY BILATERAL LOWER ORIGINAL Images acquired, not reported on this accession number. Normal [facility] ([place]) .Auto Diffon 10-26-2023 Basophil, Absolute 0.1 10 3/mcL Normal 0.0-0.3 [facility] ([place]) Comment on above: Performed By: #### A KAILA, ADIFF, GFR, BMP, CBC #### [address] [address] Basophils/100 WBC (Bld) 0.8 % Normal 0.0-2.5 A [facility] ([place]) Comment on above: Performed By: #### A KAILA, ADIFF, GFR, BMP, CBC #### [address] [address] Eosinophil, Absolute 0.1 10 3/mcL Normal 0.0-0.7 [facility] ([place]) Comment on above: Performed By: #### A KAILA, ADIFF, GFR, BMP, CBC #### [address] [address] Eosinophils/100 WBC (Bld) 1.5 % Normal 0.0-6.0 [facility] ([place]) Comment on above: Performed By: #### A KAILA, ADIFF, GFR, BMP, CBC #### [address] [address] Lymphocyte, Absolute 1.3 10 3/mcL Normal 0.9-4.3 [facility] ([place]) Comment on above: Performed By: #### A KAILA, ADIFF, GFR, BMP, CBC #### [address] [address] Lymphocytes/100 WBC (Bld) 16.6 % Low 20.0-40.0 [facility] ([place]) Comment on above: Performed By: #### A KAILA, ADIFF, GFR, BMP, CBC #### [address] [address] Monocyte, Absolute 0.6 10 3/mcL Normal 0.1-1.4 [facility] ([place]) Comment on above: Performed By: #### A KAILA, ADIFF, GFR, BMP, CBC #### [address] [address] Monocytes/100 WBC (Bld) 7.8 % Normal 2.0-13.0 A [facility] ([place]) Comment on above: Performed By: #### A KAILA, ADIFF, GFR, BMP, CBC #### [address] [address] Neutrophils/100 WBC (Bld) 73.3 % Normal 50.0-75.0 [facility] ([place]) Comment on above: Performed By: #### A KAILA, ADIFF, GFR, BMP, CBC #### [address] [address] .GFRon 10-26-2023 GFR 53 ml/min/1.73sqm Normal [facility] ([place]) Comment on above: Result Comment: GFR Population [...] A KAILA, ADIFF, GFR, BMP, CBC #### [address] [address] GFR Non- 44 ml/min/1.73sqm Normal [facility] ([place]) Comment on above: Result Comment: GFR Population [...] A KAILA, ADIFF, GFR, BMP, CBC #### [place] [address] .NEUABSon 10-26-2023 Neutrophil, Absolute 5.7 10 3/mcL Normal 2.3-8.1 [facility] ([place]) Comment on above: Performed By: #### A KAILA, ADIFF, GFR, BMP, CBC #### [place] [id number] BMPon 10-26-2023 BUN/Creatinine Ratio 25.6 ratio High 10.0-22.0 [facility] ([place]) Comment on above: Order Comment: hemol yzed talk to noa Performed By: #### A KAILA, ADIFF, GFR, BMP, CBC #### [address] [address] Calcium [Mass/Vol] 7.7 mg/dL Low 8.7-10.4 [facility] ([place]) Comment on above: Order Comment: hemol yzed talk to noa Performed By: #### A KAILA, ADIFF, GFR, BMP, CBC #### [address] [address] Chloride [Moles/Vol] 114 mmol/L High 98-110 [facility] ([place]) Comment on above: Order Comment: hemol yzed talk to noa Performed By: #### A KAILA, ADIFF, GFR, BMP, CBC #### [address] [address] CO2 [Moles/Vol] 29 mmol/L Normal 22-32 [facility] ([place]) Comment on above: Order Comment: hemol yzed talk to noa Performed By: #### A KAILA, ADIFF, GFR, BMP, CBC #### [address] [address] Creatinine [Mass/Vol] 1.21 mg/dL High 0.50-1.20 [facility] ([place]) Comment on above: Order Comment: hemol yzed talk to noa Performed By: #### A KAILA, ADIFF, GFR, BMP, CBC #### [address] [address] Electrolyte Balance -1.0 mEq/L Low 4.0-15.0 [facility] ([place]) Comment on above: Order Comment: hemol yzed talk to noa Performed By: #### A KAILA, ADIFF, GFR, BMP, CBC #### [address] [address] Potassium [Moles/Vol] 3.9 mmol/L Normal 3.5-5.0 [facility] ([place]) Comment on above: Order Comment: hemol yzed talk to noa Performed By: #### A KAILA, ADIFF, GFR, BMP, CBC #### [address] [address] Sodium [Moles/Vol] 142 mmol/L Normal 136-145 [facility] ([place]) Comment on above: Order Comment: hemol yzed talk to noa Performed By: #### A KAILA, ADIFF, GFR, BMP, CBC #### [address] [address] Glucose [Mass/Vol] 78 mg/dL Low 82-115 [facility] ([place]) Comment on above: Order Comment: hemol yzed talk to noa Performed By: #### A KAILA, ADIFF, GFR, BMP, CBC #### [place] [address] Urea nitrogen [Mass/Vol] 31.0 mg/dL High 8.0-22.0 [facility] ([place]) Comment on above: Order Comment: hemol yzed talk to noa Performed By: #### A KAILA, ADIFF, GFR, BMP, CBC #### [place] [id number] CBCon 10-26-2023 Erythrocyte distribution width (RBC) [Ratio] 14.9 % Normal 11.5-15.5 [facility] ([place]) Comment on above: Performed By: #### A KAILA, ADIFF, GFR, BMP, CBC #### [place] [address] Hematocrit (Bld) [Volume fraction] 40.0 % Normal 34.0-46.0 [facility] ([place]) Comment on above: Performed By: #### A KAILA, ADIFF, GFR, BMP, CBC #### [place] [address] Hgb 13.7 G/dL Normal 12.0-16.0 [facility] ([place]) Comment on above: Performed By: #### A KAILA, ADIFF, GFR, BMP, CBC #### [place] [address] MCH (RBC) [Entitic mass] 29.9 pg Normal 27.0-33.0 [facility] ([place]) Comment on above: Performed By: #### A KAILA, ADIFF, GFR, BMP, CBC #### [place] [address] MCHC 34.2 G/dL Normal 32.0-36.0 [facility] ([place]) Comment on above: Performed By: #### A KAILA, ADIFF, GFR, BMP, CBC #### [place] [address] MCV (RBC) [Entitic vol] 87.4 fL Normal 80.0-99.0 A [facility] ([place]) Comment on above: Performed By: #### A KAILA, ADIFF, GFR, BMP, CBC #### [facility] [address] [place] [id number] Platelet 188 10 3/mcL Normal 150-450 [facility] ([place]) Comment on above: Performed By: #### A KAILA, ADIFF, GFR, BMP, CBC #### [facility] [address] [place] [id number] Platelet mean volume (Bld) [Entitic vol] 7.5 fL Normal 6.6-10.5 [facility] ([place]) Comment on above: Performed By: #### A KAILA, ADIFF, GFR, BMP, CBC #### [facility] [address] [place] [id number] RBC 4.57 10 6/mcL Normal 4.10-5.30 [facility] ([place]) Comment on above: Performed By: #### A KAILA, ADIFF, GFR, BMP, CBC #### [facility] [address] [place] [address] WBC 7.8 10 3/mcL Normal 4.5-10.8 [facility] ([place]) Comment on above: Performed By: #### A KAILA, ADIFF, GFR, BMP, CBC #### [address] [address] * Body fluid crystals type b y light microscopyOrdered By: Kai Jacobson on 10-22-2023 Crystals LM Nom (Body fld) See PATH REV [facility] Comment on above: CRYSTAL RESULT IS PRELIMINARY. SEE PATH REVIEW FOR FINAL REPORT. Review by pathologistOrdered By: Kai Jacobson on 10-22-2023 Pathologist review Jimy (Unsp spec) [Interp] Reviewed [facility] Comment on above: Previous reported re sult: Will follow Edited by: PELON on 10/23/23:1346Negative for Mann Thomas M.D. 10/23/23 AMENDED REPORT 10/23/23 1346 PATH REV previously reported as: Will follow Specimen source identificati on of body fluidOrdered By: Kai Jacobson on 10-22-2023 Specimen source Nom (Body fld) SYNOVIAL [facility] Absolute lymphocyte countOrd ered By: ED PROVIDER on 10-05-2023 Lymphocytes Auto (Unsp spec) [#/Vol] 1.62 10*3/uL 0.83-4.51 [facility] Basophil percentageOrdered B y: ED PROVIDER on 10-05-2023 Basophil percentage 108 mg/dL 74-106 [facility] Basophil percentage 142 mmol/L 136-145 [facility] Basophil percentage 4.3 mmol/L 3.5-5.1 [facility] Basophil percentage 110 mmol/L 98-107 [facility] Basophils (Bld) [#/Vol] 7.2 10*3/uL 4.4-11.0 [facility] Basophils (Bld) [#/Vol] 4.8 10*3/uL 2.0-7.7 [facility] Basophils/100 WBC (Bld) 0.7 % 0-1 [facility] Basophils/100 WBC (Bld) 66.3 % 47-70 [facility] Basophils/100 WBC (Bld) 2.9 % 0-5 [facility] Chloride [Moles/Vol] 110 mmol/L 98-107 [facility] Eosinophils/100 WBC (Bld) 2.9 % 0-5 [facility] Glucose [Mass/Vol] 108 mg/dL 74-106 [facility] Comment on above: Fasting Glucose resu lt from 100 to 125 mg/dL suggests IMPAIRED HOMEOSTASIS per A.D.A. criteria. Neutrophils (Bld) [#/Vol] 4.8 10*3/uL 2.0-7.7 [facility] Neutrophils/100 WBC (Bld) 66.3 % 47-70 [facility] Potassium [Moles/Vol] 4.3 mmol/L 3.5-5.1 [facility] Sodium [Moles/Vol] 142 mmol/L 136-145 [facility] WBC (Bld) [#/Vol] 7.2 10*3/uL 4.4-11.0 [facility] Blood erythrocytes count (nu mber/volume)Ordered By: ED PROVIDER on 10-05-2023 RBC (Bld) [#/Vol] 5.19 10*6/uL 4.2-5.4 [facility] Blood hemoglobin measurement (mass/volume)Ordered By: ED PROVIDER on 10-05-2023 Hemoglobin (Bld) [Mass/Vol] 14.9 g/dL 12.0-15.0 [facility] Blood lymphocytes/100 leukoc ytesOrdered By: ED PROVIDER on 10-05-2023 Lymphocytes/100 WBC (Bld) 22.4 % 19-41 [facility] Blood monocytes/100 leukocyt esOrdered By: ED PROVIDER on 10-05-2023 Monocytes/100 WBC (Bld) 7.3 % 0-10 [facility] Blood platelet mean volumeOr dered By: ED PROVIDER on 10-05-2023 Platelet mean volume (Bld) [Entitic vol] 9.6 fL 6.2-12.0 [facility] Determination of erythrocyte mean corpuscular volume (MCV)Ordered By: ED PROVIDER on 10-05-2023 MCV (RBC) [Entitic vol] 88.8 fL 81-99 [facility] Hematocrit Auto (Bld) [Volum e fraction]Ordered By: ED PROVIDER on 10-05-2023 Hematocrit (Bld) [Volume fraction] 46.1 % 37-47 [facility] Laboratory - Chemistry and C hemistry - challengeOrdered By: Yasmani Haynes on 10-05-2023 Magnesium [Mass/Vol] 2.0 mg/dL 1.6-2.6 [facility] Laboratory - Chemistry and C hemistry - challengeOrdered By: ED PROVIDER on 10-05-2023 CO2 [Moles/Vol] 27.0 mmol/L 21.0-32.0 [facility] Urea nitrogen/Creatinine [Mass ratio] 20.7 mg/mg 10-20 [facility] - Hematology and Cell countsOrdered By: ED PROVIDER on 10-05-2023 Erythrocyte distribution width (RBC) [Entitic vol] 45.3 fL 35.1-43.9 [facility] Erythrocyte distribution width (RBC) [Ratio] 14.0 % 11.6-14.6 [facility] Immature granulocytes/100 WBC (Bld) 0.400 % 0.0-0.9 [facility] Comment on above: IG% - Immature Granu locytes (promyelocytes, myelocytes and metamyelocytes) > 1% indicates that a LEFT SHIFT is Present. MCH (RBC) [Entitic mass] 28.7 pg 27.0-32.0 [facility] Nucleated RBC/100 WBC (Bld) [Ratio] 0 % 0-5 [facility] MCHC Auto (RBC) [Mass/Vol]Or dered By: ED PROVIDER on 10-05-2023 MCHC (RBC) [Mass/Vol] 32.3 g/dL 32-36 [facility] No Panel InformationOrdered By: ED PROVIDER on 10-05-2023 Troponin I High Sensitivity 8 pg/mL 3.0-54.0 [facility] Comment on above: Please Note: New Kim t Units and Gender Specific Reference Ranges. For more information see Policy Stat Procedure Bonaparte High Sensitivity Troponin (TNIH) and attachments. 8 pg/mL 3.0-54.0 [facility] Estimated Creatinine Clearance Calc 43.04 ml/min [facility] Estimated GFR (MDRD) Amer 63 mL/min >60 [facility] Comment on above: GFR Calc Estimated GFR (MDRD) Non-Af Amer 52 mL/min >60 [facility] Comment on above: Non- GFR Calc 28.7 pg 27.0-32.0 [facility] 14.0 % 11.6-14.6 [facility] 45.3 fl 35.1-43.9 [facility] 0.400 % 0.0-0.9 [facility] 0 % 0-5 [facility] 52 mL/min >60 [facility] 63 mL/min >60 [facility] 43.04 ml/min [facility] 20.7 RATIO 10-20 [facility] 27.0 mmol/L 21.0-32.0 [facility] No Panel InformationOrdered By: Yasmani Haynes on 10-05-2023 2.0 mg/dL 1.6-2.6 [facility] Platelets bldOrdered By: ED PROVIDER on 10-05-2023 Platelets (Bld) [#/Vol] 206 10*3/uL 150-450 [facility] Serum or plasma calcium stefania urement (mass/volume)Ordered By: ED PROVIDER on 10-05-2023 Calcium [Mass/Vol] 9.5 mg/dL 8.5-10.1 [facility] Serum or plasma creatinine m easurement (mass/volume)Ordered By: ED PROVIDER on 10-05-2023 Creatinine [Mass/Vol] 1.11 mg/dL 0.55-1.02 [facility] Comment on above: The validity of the calculated GFR & GFRAA in patients over 70 years has not been determined. Clinical correlation is essential. Serum or plasma urea nitroge n measurement (mass/volume)Ordered By: ED PROVIDER on 10-05-2023 Urea nitrogen [Mass/Vol] 23 mg/dL 7-18 [facility] Thin prep Papanicolaou smear with manual screeningOrdered By: ED PROVIDER on 10-05-2023 Thin prep Papanicolaou smear with manual screening 5 5-15 [facility] Absolute lymphocyte countOrd ered By: Daron Benton on 08-21-2023 Lymphocytes Auto (Unsp spec) [#/Vol] 1.45 10*3/uL 0.83-4.51 [facility] Basophil percentageOrdered B y: Daron Benton on 08-21-2023 Basophil percentage 86 mg/dL 74-106 [facility] Basophil percentage 7.3 g/dL 6.4-8.2 [facility] Basophil percentage 0.30 mg/dL 0.20-1.00 [facility] Basophil percentage 139 mmol/L 136-145 [facility] Basophil percentage 4.7 mmol/L 3.5-5.1 [facility] Basophil percentage 108 mmol/L 98-107 [facility] Basophils (Bld) [#/Vol] 7.3 10*3/uL 4.4-11.0 [facility] Basophils (Bld) [#/Vol] 5.0 10*3/uL 2.0-7.7 [facility] Basophils/100 WBC (Bld) 0.7 % 0-1 [facility] Basophils/100 WBC (Bld) 68.4 % 47-70 [facility] Basophils/100 WBC (Bld) 3.1 % 0-5 [facility] Bilirubin [Mass/Vol] 0.30 mg/dL 0.20-1.00 [facility] Comment on above: For patients on eltr ombopag therapy, use of Dimension Bonaparte TBIL is not recommended. Chloride [Moles/Vol] 108 mmol/L 98-[address] [facility] Eosinophils/100 WBC (Bld) 3.1 % 0-5 [facility] Glucose [Mass/Vol] 86 mg/dL 74-106 [facility] Neutrophils (Bld) [#/Vol] 5.0 10*3/uL 2.0-7.7 [facility] Neutrophils/100 WBC (Bld) 68.4 % 47-70 [facility] Potassium [Moles/Vol] 4.7 mmol/L 3.5-5.1 [facility] Protein [Mass/Vol] 7.3 g/dL 6.4-8.2 [facility] Sodium [Moles/Vol] 139 mmol/L 136-145 [facility] WBC (Bld) [#/Vol] 7.3 10*3/uL 4.4-11.0 [facility] Blood erythrocytes count (nu mber/volume)Ordered By: Daron Benton on 08-21-2023 RBC (Bld) [#/Vol] 4.99 10*6/uL 4.2-5.4 [facility] Blood hemoglobin measurement (mass/volume)Ordered By: Daron Benton on 08-21-2023 Hemoglobin (Bld) [Mass/Vol] 14.5 g/dL 12.0-15.0 [facility] Blood lymphocytes/100 leukoc ytesOrdered By: Daron Benton on 08-21-2023 Lymphocytes/100 WBC (Bld) 19.8 % 19-41 [facility] Blood monocytes/100 leukocyt esOrdered By: Daron Benton on 08-21-2023 Monocytes/100 WBC (Bld) 7.5 % 0-10 [facility] Blood platelet mean volumeOr dered By: Daron Benton on 08-21-2023 Platelet mean volume (Bld) [Entitic vol] 10.7 fL 6.2-12.0 [facility] Determination of erythrocyte mean corpuscular volume (MCV)Ordered By: Daron Benton on 08-21-2023 MCV (RBC) [Entitic vol] 91.6 fL 81-99 [facility] Hematocrit Auto (Bld) [Volum e fraction]Ordered By: Daron Benton on 08-21-2023 Hematocrit (Bld) [Volume fraction] 45.7 % 37-47 [facility] - Chemistry and C hemistry - challengeOrdered By: Daron Benton on 08-21-2023 ALP [Catalytic activity/Vol] 122 U/L 45-117 [facility] ALT [Catalytic activity/Vol] 26 U/L 13-56 [facility] CO2 [Moles/Vol] 28.0 mmol/L 21.0-32.0 [facility] Globulin (S) [Mass/Vol] 3.6 g/dL 2.2-4.2 [facility] Urea nitrogen/Creatinine [Mass ratio] 22.2 mg/mg 10-20 [facility] - Hematology and Cell countsOrdered By: Daron Benton on 08-21-2023 Erythrocyte distribution width (RBC) [Entitic vol] 46.4 fL 35.1-43.9 [facility] Erythrocyte distribution width (RBC) [Ratio] 13.8 % 11.6-14.6 [facility] Immature granulocytes/100 WBC (Bld) 0.500 % 0.0-0.9 [facility] Comment on above: IG% - Immature Granu locytes (promyelocytes, myelocytes and metamyelocytes) > 1% indicates that a LEFT SHIFT is Present. MCH (RBC) [Entitic mass] 29.1 pg 27.0-32.0 [facility] Nucleated RBC/100 WBC (Bld) [Ratio] 0 % 0-5 [facility] MCHC Auto (RBC) [Mass/Vol]Or dered By: Daron Benton on 08-21-2023 MCHC (RBC) [Mass/Vol] 31.7 g/dL 32-36 [facility] No Panel InformationOrdered By: Daron Benton on 08-21-2023 Estimated GFR (MDRD) Amer 65 mL/min >60 [facility] Comment on above: GFR Calc Estimated GFR (MDRD) Non-Af Amer 53 mL/min >60 [facility] Comment on above: Non- GFR Calc Thyroid Stimulating Hormone (TSH) 2.00 uIU/mL 0.358-3.74 [facility] 29.1 pg 27.0-32.0 [facility] 13.8 % 11.6-14.6 [facility] 46.4 fl 35.1-43.9 [facility] 0.500 % 0.0-0.9 [facility] 0 % 0-5 [facility] 53 mL/min >60 [facility] 65 mL/min >60 [facility] 22.2 RATIO 10-20 [facility] 3.6 g/dL 2.2-4.2 [facility] 122 U/L 45-117 [facility] 26 U/L 13-56 [facility] 28.0 mmol/L 21.0-32.0 [facility] 2.00 uIU/mL 0.358-3.74 [facility] Platelets bldOrdered By: Nila Benton on 08-21-2023 Platelets (Bld) [#/Vol] 184 10*3/uL 150-450 [facility] Serum or plasma albumin stefania urement (mass/volume)Ordered By: Daron Benton on 08-21-2023 Albumin [Mass/Vol] 3.7 g/dL 3.2-5.0 [facility] Serum or plasma albumin/glob ulin mass ratioOrdered By: Daron Benton on 08-21-2023 Albumin/Globulin [Mass ratio] 1.0 {ratio} 0.9-2.4 [facility] Serum or plasma calcium stefania urement (mass/volume)Ordered By: Daron Benton on 08-21-2023 Calcium [Mass/Vol] 9.2 mg/dL 8.5-10.1 [facility] Serum or plasma creatinine m easurement (mass/volume)Ordered By: Daron Benton on 08-21-2023 Creatinine [Mass/Vol] 1.08 mg/dL 0.55-1.02 [facility] Comment on above: The validity of the calculated GFR & GFRAA in patients over 70 years has not been determined. Clinical correlation is essential. Serum or plasma urea nitroge n measurement (mass/volume)Ordered By: Daron Benton on 08-21-2023 Urea nitrogen [Mass/Vol] 24 mg/dL 7-18 [facility] Thin prep Papanicolaou smear with manual screeningOrdered By: Daron Benton on 08-21-2023 Thin prep Papanicolaou smear with manual screening 18 U/L 15-37 [facility] Thin prep Papanicolaou smear with manual screening 3 5-15 [facility] Basophil percentageOrdered B y: Dr. Benton on 04-26-2023 Bilirubin [Mass/Vol] 0.30 mg/dL 0.20-1.00 [facility] Comment on above: For patients on eltr ombopag therapy, use of Dimension Bon[place]arte TBIL is not recommended. Chloride [Moles/Vol] 109 mmol/L 98-107 [facility] Glucose [Mass/Vol] 95 mg/dL 74-106 [facility] Potassium [Moles/Vol] 4.6 mmol/L 3.5-5.1 [facility] Protein [Mass/Vol] 7.1 g/dL 6.4-8.2 [facility] Sodium [Moles/Vol] 138 mmol/L 136-145 [facility] INR in Blood by Coagulation assayOrdered By: Dr. Benton on 04-26-2023 INR Coag (Bld) [Relative time] 0.9 {INR} [facility] - Chemistry and C hemistry - challengeOrdered By: Dr. Benton on 04-26-2023 ALP [Catalytic activity/Vol] 109 U/L 45-117 [facility] ALT [Catalytic activity/Vol] 26 U/L 13-56 [facility] CO2 [Moles/Vol] 27.0 mmol/L 21.0-32.0 [facility] Globulin (S) [Mass/Vol] 3.6 g/dL 2.2-4.2 [facility] Urea nitrogen/Creatinine [Mass ratio] 26.9 mg/mg 10-20 [facility] - CoagulationOrde red By: Dr. Benton on 04-26-2023 PT Coag (PPP) [Time] 12.5 s 11.7-14.9 [facility] No Panel InformationOrdered By: Dr. Benton on 04-26-2023 Estimated GFR (MDRD) Amer 73 mL/min >60 [facility] Comment on above: GFR Calc Estimated GFR (MDRD) Non-Af Amer 61 mL/min >60 [facility] Comment on above: Non- GFR Calc Serum or plasma albumin stefania urement (mass/volume)Ordered By: Dr. Benton on 04-26-2023 Albumin [Mass/Vol] 3.5 g/dL 3.2-5.0 [facility] Serum or plasma albumin/glob ulin mass ratioOrdered By: Dr. Benton on 04-26-2023 Albumin/Globulin [Mass ratio] 1.0 {ratio} 0.9-2.4 [facility] Serum or plasma calcium stefania urement (mass/volume)Ordered By: Dr. Benton on 04-26-2023 Calcium [Mass/Vol] 9.5 mg/dL 8.5-10.1 [facility] Serum or plasma creatinine m easurement (mass/volume)Ordered By: Dr. Benton on 04-26-2023 Creatinine [Mass/Vol] 0.97 mg/dL 0.55-1.02 [facility] Comment on above: The validity of the calculated GFR & GFRAA in patients over 70 years has not been determined. Clinical correlation is essential. Serum or plasma transthyreti n measurement (mass/volume)Ordered By: Dr. Benton on 04-26-2023 Prealbumin [Mass/Vol] 19.6 mg/dL 20.0-40.0 [facility] Serum or plasma urea nitroge n measurement (mass/volume)Ordered By: Dr. Benton on 04-26-2023 Urea nitrogen [Mass/Vol] 26 mg/dL 7-18 [facility] Thin prep Papanicolaou smear with manual screeningOrdered By: Dr. Benton on 04-26-2023 Thin prep Papanicolaou smear with manual screening 14 U/L 15-37 [facility] Thin prep Papanicolaou smear with manual screening 2 5-15 [facility] Absolute lymphocyte countOrd ered By: Dr. Garcia on 04-08-2023 Lymphocytes Auto (Unsp spec) [#/Vol] 1.45 10*3/uL 0.83-4.51 [facility] Basophil percentageOrdered B y: Dr. Garcia on 04-08-2023 Basophils/100 WBC (Bld) 0.7 % 0-1 [facility] Chloride [Moles/Vol] 105 mmol/L 98-107 [facility] Eosinophils/100 WBC (Bld) 1.5 % 0-5 [facility] Glucose [Mass/Vol] 96 mg/dL 74-106 [facility] Neutrophils (Bld) [#/Vol] 5.3 10*3/uL 2.0-7.7 [facility] Neutrophils/100 WBC (Bld) 70.5 % 47-70 [facility] Potassium [Moles/Vol] 3.8 mmol/L 3.5-5.1 [facility] Sodium [Moles/Vol] 141 mmol/L 136-145 [facility] WBC (Bld) [#/Vol] 7.6 10*3/uL 4.4-11.0 [facility] Blood erythrocytes count (nu mber/volume)Ordered By: Dr. Garcia on 04-08-2023 RBC (Bld) [#/Vol] 5.14 10*6/uL 4.2-5.4 [facility] Blood hemoglobin measurement (mass/volume)Ordered By: Dr. Garcia on 04-08-2023 Hemoglobin (Bld) [Mass/Vol] 15.1 g/dL 12.0-15.0 [facility] Blood lymphocytes/100 leukoc ytesOrdered By: Dr. Garcia on 04-08-2023 Lymphocytes/100 WBC (Bld) 19.2 % 19-41 [facility] Blood monocytes/100 leukocyt esOrdered By: Dr. Garcia on 04-08-2023 Monocytes/100 WBC (Bld) 7.7 % 0-10 [facility] Blood platelet mean volumeOr dered By: Dr. Garcia on 04-08-2023 Platelet mean volume (Bld) [Entitic vol] 10.2 fL 6.2-12.0 [facility] Determination of erythrocyte mean corpuscular volume (MCV)Ordered By: Dr. Garcia on 04-08-2023 MCV (RBC) [Entitic vol] 89.1 fL 81-99 [facility] Hematocrit Auto (Bld) [Volum e fraction]Ordered By: Dr. Garcia on 04-08-2023 Hematocrit (Bld) [Volume fraction] 45.8 % 37-47 [facility] - Chemistry and C hemistry - challengeOrdered By: Dr. Garcia on 04-08-2023 CO2 [Moles/Vol] 29.0 mmol/L 21.0-32.0 [facility] Urea nitrogen/Creatinine [Mass ratio] 24.0 mg/mg 10-20 [facility] - Hematology and Cell countsOrdered By: Dr. Garcia on 04-08-2023 Erythrocyte distribution width (RBC) [Entitic vol] 46.6 fL 35.1-43.9 [facility] Erythrocyte distribution width (RBC) [Ratio] 14.4 % 11.6-14.6 [facility] Immature granulocytes/100 WBC (Bld) 0.400 % 0.0-0.9 [facility] Comment on above: IG% - Immature Granu locytes (promyelocytes, myelocytes and metamyelocytes) > 1% indicates that a LEFT SHIFT is Present. MCH (RBC) [Entitic mass] 29.4 pg 27.0-32.0 [facility] Nucleated RBC/100 WBC (Bld) [Ratio] 0 % 0-5 [facility] MCHC Auto (RBC) [Mass/Vol]Or dered By: Dr. Garcia on 04-08-2023 MCHC (RBC) [Mass/Vol] 33.0 g/dL 32-36 [facility] No Panel InformationOrdered By: Dr. Garcia on 04-08-2023 Troponin I High Sensitivity 9 pg/mL 3.0-54.0 [facility] Comment on above: Please Note: New Kim t Units and Gender Specific Reference Ranges. For more information see Policy Stat Procedure Bon[place]arte High Sensitivity Troponin (TNIH) and attachments. Estimated Creatinine Clearance Calc 50.23 ml/min [facility] Estimated GFR (MDRD) Amer 83 mL/min >60 [facility] Comment on above: GFR Calc Estimated GFR (MDRD) Non-Af Amer 68 mL/min >60 [facility] Comment on above: Non- GFR Calc Platelets bldOrdered By: Dr. Garcia on 04-08-2023 Platelets (Bld) [#/Vol] 171 10*3/uL 150-450 [facility] Serum or plasma calcium stefania urement (mass/volume)Ordered By: Dr. Garcia on 04-08-2023 Calcium [Mass/Vol] 9.6 mg/dL 8.5-10.1 [facility] Serum or plasma creatinine m easurement (mass/volume)Ordered By: Dr. Garcia on 04-08-2023 Creatinine [Mass/Vol] 0.88 mg/dL 0.55-1.02 [facility] Comment on above: The validity of the calculated GFR & GFRAA in patients over 70 years has not been determined. Clinical correlation is essential. Serum or plasma urea nitroge n measurement (mass/volume)Ordered By: Dr. Garcia on 04-08-2023 Urea nitrogen [Mass/Vol] 21 mg/dL 7-18 [facility] Thin prep Papanicolaou smear with manual screeningOrdered By: Dr. Garcia on 04-08-2023 Thin prep Papanicolaou smear with manual screening 7 5-15 [facility] Culture, urineOrdered By: Dr Hero Campbell on 04-01-2023 Bacteria identified Cx Nom (U) Positive [facility] Basophil percentageOrdered B y: Dr. Campbell on 03-31-2023 Basophil percentage 0 SEEN /hpf 0-5 [facility] Bilirubin Test strip Ql (U)O rdered By: Dr. Campbell on 03-31-2023 Bilirubin Ql (U) Negative Negative [facility] Ketones Test strip Ql (U)Ord ered By: Dr. Campbell on 03-31-2023 Ketones Ql (U) Negative Negative [facility] Mucus LM Ql (Urine sed)Order ed By: Dr. Campbell on 03-31-2023 Mucus Ql (Urine sed) 0 SEEN /hpf [facility] Nitrite Test strip Ql (U)Ord ered By: Dr. Campbell on 03-31-2023 Nitrite Ql (U) Negative Negative [facility] Protein Test strip Ql (U)Ord ered By: Dr. Campbell on 03-31-2023 Protein Ql (U) Negative Negative [facility] Squamous epithelial cells de tection in urine sediment by light microscopyOrdered By: Dr. Campbell on 03-31-2023 Epithelial cells.squamous LM Ql (Urine sed) 5-10 SEEN /hpf 5-10 [facility] Urine blood detectionOrdered By: Dr. Campbell on 03-31-2023 RBC Ql (U) Negative Negative [facility] RBC Ql (U) 0 SEEN /hpf 0-5 [facility] Urine clarityOrdered By: Dr. Campbell on 03-31-2023 Clarity (U) Clear Clear [facility] Urine color determinationOrd ered By: Dr. Campbell on 03-31-2023 Color (U) Yellow Yellow [facility] Urine glucose detectionOrder ed By: Dr. Campbell on 03-31-2023 Glucose Ql (U) Normal mg/dl Normal [facility] Urine leukocyte esterase det ection by dipstickOrdered By: Dr. Campbell on 03-31-2023 Leukocyte esterase Test strip Ql (U) Negative Negative [facility] Urine pHOrdered By: Dr. Campbell o n 03-31-2023 pH (U) 6.0 [pH] 5.0 - 8.0 [facility] Urine sediment bacteria coun t by microscopy (number/high power field)Ordered By: Dr. Campbell on 03-31-2023 Bacteria LM.HPF (Urine sed) [#/Area] 1 /[HPF] None Seen [facility] Urine specific gravity measu rementOrdered By: Dr. Campbell on 03-31-2023 Specific gravity (U) [Rel density] 1.010 1.002-1.03 0 [facility] Urobilinogen Auto test strip Ql (U)Ordered By: Dr. Campbell on 03-31-2023 Urobilinogen Ql (U) Normal mg/dl Normal [facility] LABORATORYOrdered By: SYSTEM SYSTEM on 11-09-2022 Basophils [...] Auto (Unsp spec) [#/Vol] 1.75 10*3/uL 0.83-4.51 [facility] Basophil percentageOrdered B y: Dr. Benton on 10-20-2022 Basophil percentage < 0.2 AI 0.0-0.9 [facility] Basophils/100 WBC (Bld) 1.0 % 0-1 [facility] Bilirubin [Mass/Vol] 0.70 mg/dL 0.20-1.00 [facility] Comment on above: For patients on eltr ombopag therapy, use of Dimension [place]arte TBIL is not recommended. Chloride [Moles/Vol] 107 mmol/L 98-107 [facility] Eosinophils/100 WBC (Bld) 1.8 % 0-5 [facility] Glucose [Mass/Vol] 89 mg/dL 74-106 [facility] Neutrophils (Bld) [#/Vol] 5.8 10*3/uL 2.0-7.7 [facility] Neutrophils/100 WBC (Bld) 68.4 % 47-70 [facility] Potassium [Moles/Vol] 4.2 mmol/L 3.5-5.1 [facility] Protein [Mass/Vol] 7.0 g/dL 6.4-8.2 [facility] Sodium [Moles/Vol] 140 mmol/L 136-145 [facility] WBC (Bld) [#/Vol] 8.4 10*3/uL 4.4-11.0 [facility] Blood erythrocytes count (nu mber/volume)Ordered By: Dr. Bneton on 10-20-2022 RBC (Bld) [#/Vol] 5.49 10*6/uL 4.2-5.4 [facility] Blood hemoglobin measurement (mass/volume)Ordered By: Dr. Benton on 10-20-2022 Hemoglobin (Bld) [Mass/Vol] 15.6 g/dL 12.0-15.0 [facility] Blood lymphocytes/100 leukoc ytesOrdered By: Dr. Benton on 10-20-2022 Lymphocytes/100 WBC (Bld) 20.8 % 19-41 [facility] Blood monocytes/100 leukocyt esOrdered By: Dr. Benton on 10-20-2022 Monocytes/100 WBC (Bld) 7.5 % 0-10 [facility] Blood platelet mean volumeOr dered By: Dr. Benton on 10-20-2022 Platelet mean volume (Bld) [Entitic vol] 10.1 fL 6.2-12.0 [facility] Determination of erythrocyte mean corpuscular volume (MCV)Ordered By: Dr. Benton on 10-20-2022 MCV (RBC) [Entitic vol] 87.8 fL 81-99 [facility] Erythrocyte sedimentation ra teOrdered By: Dr. Benton on 10-20-2022 ESR (Bld) [Velocity] 19 mm/h 0-30 [facility] Hematocrit Auto (Bld) [Volum e fraction]Ordered By: Dr. Benton on 10-20-2022 Hematocrit (Bld) [Volume fraction] 48.2 % 37-47 [facility] - Chemistry and C hemistry - challengeOrdered By: Dr. Benton on 10-20-2022 ALP [Catalytic activity/Vol] 126 U/L 45-117 [facility] ALT [Catalytic activity/Vol] 18 U/L 13-56 [facility] Amylase [Catalytic activity/Vol] 22 U/L 5-55 [facility] CO2 [Moles/Vol] 28.0 mmol/L 21.0-32.0 [facility] Free T4 [Mass/Vol] 1.41 ng/dL 0.76-1.46 [facility] Globulin (S) [Mass/Vol] 3.1 g/dL 2.2-4.2 [facility] Lipase [Catalytic activity/Vol] 88 U/L 73-393 [facility] Urea nitrogen/Creatinine [Mass ratio] 20.8 mg/mg 10-20 [facility] - Hematology and Cell countsOrdered By: Dr. Benton on 10-20-2022 Erythrocyte distribution width (RBC) [Entitic vol] 47.9 fL 35.1-43.9 [facility] Erythrocyte distribution width (RBC) [Ratio] 14.9 % 11.6-14.6 [facility] Immature granulocytes/100 WBC (Bld) 0.500 % 0.0-0.9 [facility] Comment on above: IG% - Immature Granu locytes (promyelocytes, myelocytes and metamyelocytes) > 1% indicates that a LEFT SHIFT is Present. MCH (RBC) [Entitic mass] 28.4 pg 27.0-32.0 [facility] Nucleated RBC/100 WBC (Bld) [Ratio] 0 % 0-5 [facility] MCHC Auto (RBC) [Mass/Vol]Or dered By: Dr. Benton on 10-20-2022 MCHC (RBC) [Mass/Vol] 32.4 g/dL 32-36 [facility] No Panel InformationOrdered By: Dr. Benton on 10-20-2022 Centromere B Antibody <0.2 AI 0.0-0.9 [facility] Estimated GFR (MDRD) Amer 96 mL/min >60 [facility] Comment on above: GFR Calc Estimated GFR (MDRD) Non-Af Amer 79 mL/min >60 [facility] Comment on above: Non- GFR Calc MERCHANDISING REPRESENTATIVE Antibody <0.2 AI 0.0-0.9 [facility] Thyroid Stimulating Hormone (TSH) 1.66 uIU/mL 0.358-3.74 [facility] Vitamin D 25-Hydroxy 59.8 ng/mL [facility] Comment on above: Vitamin D 25(OH) Sta tus Range Deficiency <20 ng/mL (50nmol/L) Insufficiency 20 - 30 ng/mL (50 - 75 nmol/L) Sufficiency 30 - 100 ng/mL (75 - 250 nmol/L) Toxicity >100 ng/mL (>250 nmol/L) Platelets bldOrdered By: Dr. Bneton on 10-20-2022 Platelets (Bld) [#/Vol] 197 10*3/uL 150-450 [facility] Serum DNA double strand anti body assay (units/volume)Ordered By: Dr. Benton on 10-20-2022 DNA double strand Ab Qn (S) [IU]/mL 0-9 [facility] Comment on above: Negative <5 Equivoca l 5 - 9 Positive >9 Serum Myrtle-1 antibody assay (u nits/volume)Ordered By: Dr. Benton on 10-20-2022 Myrtle-1 extractable nuclear Ab Qn (S) <0.2 AI 0.0-0.9 [facility] Serum Scl-70 extractable nuc lear antibody assay (units/volume)Ordered By: Dr. Benton on 10-20-2022 SCL-70 extractable nuclear Ab Qn (S) 0.2 AI 0.0-0.9 [facility] Serum Benton extractable nucl ear antibody detectionOrdered By: Dr. Benton on 10-20-2022 Chetan extractable nuclear Ab Ql (S) <0.2 AI 0.0-0.9 [facility] Serum or plasma C reactive p rotein measurement (mass/volume)Ordered By: Dr. Benton on 10-20-2022 CRP [Mass/Vol] mg/L 0.0-3.0 [facility] Comment on above: C-Reactive Protein ( CRP) provides useful information for thediagnosis, therapy and monitoring of inflammatory processesand associated diseases. For the evaluation of Relative Riskfor Cardiovascular Disease, a High Sensitivity CRP (HSCRP)should be ordered. Serum or plasma albumin stefania urement (mass/volume)Ordered By: Dr. Benton on 10-20-2022 Albumin [Mass/Vol] 3.9 g/dL 3.2-5.0 [facility] Serum or plasma albumin/glob ulin mass ratioOrdered By: Dr. Benton on 10-20-2022 Albumin/Globulin [Mass ratio] 1.3 {ratio} 0.9-2.4 [facility] Serum or plasma calcium stefania urement (mass/volume)Ordered By: Dr. Benton on 10-20-2022 Calcium [Mass/Vol] 9.2 mg/dL 8.5-10.1 [facility] Serum or plasma creatinine m easurement (mass/volume)Ordered By: Dr. Benton on 10-20-2022 Creatinine [Mass/Vol] 0.77 mg/dL 0.55-1.02 [facility] Comment on above: The validity of the calculated GFR & GFRAA in patients over 70 years has not been determined. Clinical correlation is essential. Serum or plasma urea nitroge n measurement (mass/volume)Ordered By: Dr. Benton on 10-20-2022 Urea nitrogen [Mass/Vol] 16 mg/dL 06-05 [facility] Serum rheumatoid factor dete ctionOrdered By: Dr. Benton on 10-20-2022 Rheumatoid factor Ql (S) < 10.0 IU/mL <15 [facility] Thin prep Papanicolaou smear with manual screeningOrdered By: Dr. Benton on 10-20-2022 Thin prep Papanicolaou smear with manual screening 14 U/L 15-37 [facility] Thin prep Papanicolaou smear with manual screening 5 5-15 [facility] No Panel Informationon 05-02 Estimated GFR (MDRD) Amer 77 mL/min >60 [facility] Work Phone: Comment on above: GFR Calc Estimated GFR (MDRD) Non-Af Amer 63 mL/min >60 [facility] Work Phone: Comment on above: Non- GFR Calc Serum or plasma creatinine m easurement (mass/volume)on 05-02-2022 Creatinine [Mass/Vol] 0.94 mg/dL 0.55-1.02 [facility] Work Phone: Comment on above: The validity of the calculated GFR & GFRAA in patients over 70 years has not been determined. Clinical correlation is essential. Serum or plasma urea nitroge n measurement (mass/volume)on 05-02-2022 Urea nitrogen [Mass/Vol] 11 mg/dL 06-05 [facility] Work Phone: Absolute lymphocyte counton 02-20-2022 Lymphocytes Auto (Unsp spec) [#/Vol] 1.50 10*3/uL 0.83-4.51 [facility] Work Phone: Basophil percentageon 2021 Basophils/100 WBC (Bld) 0.3 % 0-1 [facility] Work Phone: Bilirubin [Mass/Vol] 0.20 mg/dL 0.20-1.00 [facility] Work Phone: Comment on above: For patients on eltr ombopag therapy, use of Dimension Bon[place]arte TBIL is not recommended. Chloride [Moles/Vol] 107 mmol/L 98-107 [facility] Work Phone: Eosinophils/100 WBC (Bld) 0.8 % 0-5 [facility] Work Phone: Glucose [Mass/Vol] 97 mg/dL 74-106 [facility] Work Phone: Neutrophils (Bld) [#/Vol] 4.0 10*3/uL 2.0-7.7 [facility] Work Phone: Neutrophils/100 WBC (Bld) 65.5 % 47-70 [facility] Work Phone: Potassium [Moles/Vol] 3.5 mmol/L 3.5-5.1 [facility] Work Phone: Protein [Mass/Vol] 6.5 g/dL 6.4-8.2 [facility] Work Phone: Sodium [Moles/Vol] 142 mmol/L 136-145 [facility] Work Phone: WBC (Bld) [#/Vol] 6.2 10*3/uL 4.4-11.0 [facility] Work Phone: Blood erythrocytes count (nu mber/volume)on 02-20-2022 RBC (Bld) [#/Vol] 4.80 10*6/uL 4.2-5.4 [facility] Work Phone: Blood hemoglobin measurement (mass/volume)on 02-20-2022 Hemoglobin (Bld) [Mass/Vol] 14.1 g/dL 12.0-15.0 [facility] Work Phone: Blood lymphocytes/100 leukoc yteson 02-20-2022 Lymphocytes/100 WBC (Bld) 24.4 % 19-41 [facility] Work Phone: Blood monocytes/100 leukocyt eson 02-20-2022 Monocytes/100 WBC (Bld) 8.3 % 0-10 [facility] Work Phone: Blood platelet mean volumeon 02-20-2022 Platelet mean volume (Bld) [Entitic vol] 10.0 fL 6.2-12.0 [facility] Work Phone: Determination of erythrocyte mean corpuscular volume (MCV)on 02-20-2022 MCV (RBC) [Entitic vol] 90.6 fL 81-99 [facility] Work Phone: Direct bilirubinon 2 Bilirubin.direct [Mass/Vol] 0.10 mg/dL 0.00-0.30 [facility] Work Phone: Hematocrit Auto (Bld) [Volum e fraction]on 02-20-2022 Hematocrit (Bld) [Volume fraction] 43.5 % 37-47 [facility] Work Phone: INR in Blood by Coagulation assayon 02-20-2022 INR Coag (Bld) [Relative time] 1.0 {INR} [facility] Work Phone: Laboratory - Chemistry and C hemistry - challengeon 02-20-2022 ALP [Catalytic activity/Vol] 97 U/L 45-117 [facility] Work Phone: ALT [Catalytic activity/Vol] 18 U/L 13-56 [facility] Work Phone: CO2 [Moles/Vol] 30.0 mmol/L 21.0-32.0 [facility] Work Phone: Globulin (S) [Mass/Vol] 3.2 g/dL 2.2-4.2 [facility] Work Phone: Lipase [Catalytic activity/Vol] 38 U/L 73-393 [facility] Work Phone: Urea nitrogen/Creatinine [Mass ratio] 17.8 mg/mg 10-20 [facility] Work Phone: Laboratory - Coagulationon 0 02-20-2022 PT Coag (PPP) [Time] 12.3 s 11.7-14.9 [facility] Work Phone: Laboratory - Hematology and Cell countson 02-20-2022 Erythrocyte distribution width (RBC) [Entitic vol] 45.6 fL 35.1-43.9 [facility] Work Phone: Erythrocyte distribution width (RBC) [Ratio] 13.7 % 11.6-14.6 [facility] Work Phone: Immature granulocytes/100 WBC (Bld) 0.700 % 0.0-0.9 [facility] Work Phone: Comment on above: IG% - Immature Granu locytes (promyelocytes, myelocytes and metamyelocytes) > 1% indicates that a LEFT SHIFT is Present. MCH (RBC) [Entitic mass] 29.4 pg 27.0-32.0 [facility] Work Phone: Nucleated RBC/100 WBC (Bld) [Ratio] 0 % 0-5 [facility] Work Phone: MCHC Auto (RBC) [Mass/Vol]on 02-20-2022 MCHC (RBC) [Mass/Vol] 32.4 g/dL 32-36 [facility] Work Phone: No Panel Informationon 02-20 Estimated Creatinine Clearance Calc 59.57 ml/min [facility] Work Phone: Estimated GFR (MDRD) Amer 86 mL/min >60 [facility] Work Phone: Comment on above: GFR Calc Estimated GFR (MDRD) Non-Af Amer 71 mL/min >60 [facility] Work Phone: Comment on above: Non- GFR Calc Troponin I High Sensitivity 4 pg/mL 3.0-54.0 [facility] Work Phone: Comment on above: Please Note: New Kim t Units and Gender Specific Reference Ranges. For more information see Policy Stat Procedure [place] High Sensitivity Troponin (TNIH) and attachments. Platelets bldon 02-20-2022 Platelets (Bld) [#/Vol] 171 10*3/uL 150-450 [facility] Work Phone: Serum or plasma albumin stefania urement (mass/volume)on 02-20-2022 Albumin [Mass/Vol] 3.3 g/dL 3.2-5.0 [facility] Work Phone: Serum or plasma calcium stefania urement (mass/volume)on 02-20-2022 Calcium [Mass/Vol] 8.7 mg/dL 8.5-10.1 [facility] Work Phone: Serum or plasma creatinine m easurement (mass/volume)on 02-20-2022 Creatinine [Mass/Vol] 0.84 mg/dL 0.55-1.02 [facility] Work Phone: Comment on above: The validity of the calculated GFR & GFRAA in patients over 70 years has not been determined. Clinical correlation is essential. Serum or plasma urea nitroge n measurement (mass/volume)on 02-20-2022 Urea nitrogen [Mass/Vol] 15 mg/dL 7-18 [facility] Work Phone: Thin prep Papanicolaou smear with manual screeningon 02-20-2022 Thin prep Papanicolaou smear with manual screening 11 U/L 15-37 [facility] Work Phone: Thin prep Papanicolaou smear with manual screening 5 5-15 [facility] Work Phone: Absolute lymphocyte counton 02-18-2022 Lymphocytes Auto (Unsp spec) [#/Vol] 1.64 10*3/uL 0.83-4.51 [facility] Work Phone: Basophil percentageon 2021 Basophils/100 WBC (Bld) 0.9 % 0-1 [facility] Work Phone: Chloride [Moles/Vol] 108 mmol/L 98-107 [facility] Work Phone: Eosinophils/100 WBC (Bld) 3.1 % 0-5 [facility] Work Phone: Glucose [Mass/Vol] 112 mg/dL 74-106 [facility] Work Phone: Comment on above: Fasting Glucose resu lt from 100 to 125 mg/dL suggests IMPAIRED HOMEOSTASIS per A.D.A. criteria. Neutrophils (Bld) [#/Vol] 3.8 10*3/uL 2.0-7.7 [facility] Work Phone: Neutrophils/100 WBC (Bld) 58.7 % 47-70 [facility] Work Phone: Potassium [Moles/Vol] 3.6 mmol/L 3.5-5.1 [facility] Work Phone: Sodium [Moles/Vol] 141 mmol/L 136-145 [facility] Work Phone: WBC (Bld) [#/Vol] 6.4 10*3/uL 4.4-11.0 [facility] Work Phone: Blood erythrocytes count (nu mber/volume)on 02-18-2022 RBC (Bld) [#/Vol] 5.18 10*6/uL 4.2-5.4 [facility] Work Phone: Blood hemoglobin measurement (mass/volume)on 02-18-2022 Hemoglobin (Bld) [Mass/Vol] 15.0 g/dL 12.0-15.0 [facility] Work Phone: [phone] Blood lymphocytes/100 leukoc yteson 02-18-2022 Lymphocytes/100 WBC (Bld) 25.5 % 19-41 [facility] Work Phone: Blood monocytes/100 leukocyt eson 02-18-2022 Monocytes/100 WBC (Bld) 11.2 % 0-10 [facility] Work Phone: Blood platelet mean volumeon 02-18-2022 Platelet mean volume (Bld) [Entitic vol] 9.8 fL 6.2-12.0 [facility] Work Phone: Determination of erythrocyte mean corpuscular volume (MCV)on 02-18-2022 MCV (RBC) [Entitic vol] 88.2 fL 81-99 [facility] Work Phone: Hematocrit Auto (Bld) [Volum e fraction]on 02-18-2022 Hematocrit (Bld) [Volume fraction] 45.7 % 37-47 [facility] Work Phone: INR in Blood by Coagulation assayon 02-18-2022 INR Coag (Bld) [Relative time] 1.0 {INR} [facility] Work Phone: Laboratory - Chemistry and C hemistry - challengeon 02-18-2022 CO2 [Moles/Vol] 29.0 mmol/L 21.0-32.0 [facility] Work Phone: Magnesium [Mass/Vol] 2.1 mg/dL 1.6-2.6 [facility] Work Phone: Urea nitrogen/Creatinine [Mass ratio] 13.9 mg/mg 10-20 [facility] Work Phone: Laboratory - Coagulationon 0 02-18-2022 aPTT Coag (Bld) [Time] 28.9 s 24.1-36.2 [facility] Work Phone: PT Coag (PPP) [Time] 12.6 s 11.7-14.9 [facility] Work Phone: Laboratory - Hematology and Cell countson 02-18-2022 Erythrocyte distribution width (RBC) [Entitic vol] 43.7 fL 35.1-43.9 [facility] Work Phone: Erythrocyte distribution width (RBC) [Ratio] 13.5 % 11.6-14.6 [facility] Work Phone: Immature granulocytes/100 WBC (Bld) 0.600 % 0.0-0.9 [facility] Work Phone: Comment on above: IG% - Immature Granu locytes (promyelocytes, myelocytes and metamyelocytes) > 1% indicates that a LEFT SHIFT is Present. MCH (RBC) [Entitic mass] 29.0 pg 27.0-32.0 [facility] Work Phone: Nucleated RBC/100 WBC (Bld) [Ratio] 0 % 0-5 [facility] Work Phone: MCHC Auto (RBC) [Mass/Vol]on 02-18-2022 MCHC (RBC) [Mass/Vol] 32.8 g/dL 32-36 [facility] Work Phone: No Panel Informationon 02-18 Troponin I High Sensitivity 5 pg/mL 3.0-54.0 [facility] Work Phone: Comment on above: Please Note: New Kim t Units and Gender Specific Reference Ranges. For more information see Policy Stat Procedure [place] High Sensitivity Troponin (TNIH) and attachments. Estimated Creatinine Clearance Calc 51.11 ml/min [facility] Work Phone: Estimated GFR (MDRD) Amer 93 mL/min >60 [facility] Work Phone: Comment on above: GFR Calc Estimated GFR (MDRD) Non-Af Amer 77 mL/min >60 [facility] Work Phone: Comment on above: Non- GFR Calc Platelets bldon 02-18-2022 Platelets (Bld) [#/Vol] 207 10*3/uL 150-450 [facility] Work Phone: Serum or plasma calcium stefania urement (mass/volume)on 02-18-2022 Calcium [Mass/Vol] 8.8 mg/dL 8.5-10.1 [facility] Work Phone: Serum or plasma creatinine m easurement (mass/volume)on 02-18-2022 Creatinine [Mass/Vol] 0.79 mg/dL 0.55-1.02 [facility] Work Phone: Comment on above: The validity of the calculated GFR & GFRAA in patients over 70 years has not been determined. Clinical correlation is essential. Serum or plasma urea nitroge n measurement (mass/volume)on 02-18-2022 Urea nitrogen [Mass/Vol] 11 mg/dL 7-18 [facility] Work Phone: Thin prep Papanicolaou smear with manual screeningon 02-18-2022 Thin prep Papanicolaou smear with manual screening 4 5-15 [facility] Work Phone: Basophil percentageon 2021 Basophil percentage 4.4 mg/dL 2.5-4.9 [facility] Work Phone: Chloride [Moles/Vol] 106 mmol/L 98-107 [facility] Work Phone: Glucose [Mass/Vol] 92 mg/dL 74-106 [facility] Work Phone: Potassium [Moles/Vol] 3.9 mmol/L 3.5-5.1 [facility] Work Phone: Sodium [Moles/Vol] 141 mmol/L 136-145 [facility] Work Phone: WBC (Bld) [#/Vol] 7.7 10*3/uL 4.4-11.0 [facility] Work Phone: Blood erythrocytes count (nu mber/volume)on 01-18-2022 RBC (Bld) [#/Vol] 5.55 10*6/uL 4.2-5.4 [facility] Work Phone: Blood hemoglobin measurement (mass/volume)on 01-18-2022 Hemoglobin (Bld) [Mass/Vol] 16.9 g/dL 12.0-15.0 [facility] Work Phone: Blood platelet mean volumeon 01-18-2022 Platelet mean volume (Bld) [Entitic vol] 9.7 fL 6.2-12.0 [facility] Work Phone: Determination of erythrocyte mean corpuscular volume (MCV)on 01-18-2022 MCV (RBC) [Entitic vol] 90.5 fL 81-99 [facility] Work Phone: Hematocrit Auto (Bld) [Volum e fraction]on 01-18-2022 Hematocrit (Bld) [Volume fraction] 50.2 % 37-47 [facility] Work Phone: Laboratory - Chemistry and C hemistry - challengeon 01-18-2022 CO2 [Moles/Vol] 31.0 mmol/L 21.0-32.0 [facility] Work Phone: Urea nitrogen/Creatinine [Mass ratio] 18.6 mg/mg 10-20 [facility] Work Phone: Laboratory - Hematology and Cell countson 01-18-2022 Erythrocyte distribution width (RBC) [Entitic vol] 46.6 fL 35.1-43.9 [facility] Work Phone: Erythrocyte distribution width (RBC) [Ratio] 13.8 % 11.6-14.6 [facility] Work Phone: MCH (RBC) [Entitic mass] 30.5 pg 27.0-32.0 [facility] Work Phone: MCHC Auto (RBC) [Mass/Vol]on 01-18-2022 MCHC (RBC) [Mass/Vol] 33.7 g/dL 32-36 [facility] Work Phone: No Panel Informationon 01-18 Estimated Creatinine Clearance Calc 50.37 ml/min [facility] Work Phone: Estimated GFR (MDRD) Amer 74 mL/min >60 [facility] Work Phone: Comment on above: GFR Calc Estimated GFR (MDRD) Non-Af Amer 61 mL/min >60 [facility] Work Phone: Comment on above: Non- GFR Calc Platelets bldon 01-18-2022 Platelets (Bld) [#/Vol] 233 10*3/uL 150-450 [facility] Work Phone: Serum or plasma albumin stefania urement (mass/volume)on 01-18-2022 Albumin [Mass/Vol] 3.6 g/dL 3.2-5.0 [facility] Work Phone: Serum or plasma calcium stefania urement (mass/volume)on 01-18-2022 Calcium [Mass/Vol] 9.2 mg/dL 8.5-10.1 [facility] Work Phone: Serum or plasma creatinine m easurement (mass/volume)on 01-18-2022 Creatinine [Mass/Vol] 0.97 mg/dL 0.55-1.02 [facility] Work Phone: Comment on above: The validity of the calculated GFR & GFRAA in patients over 70 years has not been determined. Clinical correlation is essential. Serum or plasma urea nitroge n measurement (mass/volume)on 01-18-2022 Urea nitrogen [Mass/Vol] 18 mg/dL 7-18 [facility] Work Phone: Basophil percentageon 2020 Creatinine [Mass/Vol] 0.8 mg/dL 0.55-1.02 [facility] Work Phone: No Panel Informationon 11-17 Bedside Estimated GFR (eGFR) > 60.0000 mL/min >60 [facility] Work Phone: MRI BRAIN WO/W IVCONon 04-12 MRI BRAIN WO/W IVCON * * *Final Report* * * DATE OF EXAM: Apr 12 2021 2:24PM [facility] [id number] - MRI BRAIN WO/W IVCON / [...] Improvement: None. New Enhancing Lesions: None T2 [place] of Disease: Mild. Parenchymal Volume Loss: None. [...] by greater than or equal to 2mm). [employer] Architect: [facility] Transcribe Date/Time: Apr 12 2021 2:27P Dictated by : MELIZA MOMIN MD This examination was interpreted and the report reviewed and electronically signed by: MELIZA MOMIN MD on Apr 12 2021 2:33PM EST [id number] Normal [facility] CNOVon 02-09-2021 CNOV Office Visit (UCWSTR ) ----- ANGÉLICA YO ([id number]) 1955 F Date Time Provider Department 02/09/21 3:00 PM MELI GORE [facility] During your visit today, we [...] Comments: Heartburn PREDNISONE 12/15/2008 Comments: Destroyed bone. WALIUSU-EXL-KCG REDUCTASE INHIBIT*04/27/2011 5 - Intolerance TRICOR (FENOFIBRATE [...] by MELI GORE MD on 02/09/21 Normal [facility] XR Chest PA and Lateralon IMPRESSION: Trace linear atelectasis at the left base. [employer] Architect: PSC[facility] Transcribe Date/Time: Nov 25 2020 3:18P Dictated by : JOHANA DEUTSCH MD This examination was interpreted and the report reviewed and electronically signed by: JOHANA DEUTSCH MD on Nov 25 2020 3:19PM [facility] DIVISION OF RADIOLOGY * * *Final [...] spine. DIVISION OF RADIOLOGY Provider, [place] [employer] - 11/25/2020 * * *Final Report* * [...] Trace linear atelectasis at the left base. [employer] Architect: PSCElla Transcribe Date/Time: Nov 25 2020 3:18P Dictated by : JOHANA DEUTSCH MD This examination was interpreted and the report reviewed and electronically signed by: JOHANA DEUTSCH MD on Nov 25 2020 3:19PM EST [facility] Radiology Study [facility] (narrative) [facility]R Chest PA and LateralOrder ed By: [facility] Provider on 11-25-2020 [facility] PROGRESSon 12-22-2017 PROGRESS HNO ID: [id number] thor: Yogesh Hartley: (none)Author Type: PhysicianType: Progress [...] to beprimarily managing these problems [place]. At this point in timeI tell her [...] visit, with more than50% of the total clac-nj-zmlw time of the visit in counseling /coordination of care. Normal [facility] CNOVon 12-21-2017 CNOV Office Visit (AGMIL) ANGÉLICA YO ([id number]) 1955 FDate Time Provider Department12/21/17 10:30 AM [...] with more than 50% of the total qlrw-ox-yyvmwzyt of the visit in counseling / coordination of care.Referring Provider: ZHANE PARRA [[id number]]Allergies As of Date: 12/21/2017 Noted Allergy ReactionANTIHISTAMINES 04/28/2004 Comments: messes her head upASA (SALICYLATES) 12/04/2008CODEINE 04/28/2004 Comments: nauseaFENTANYL 02/19/2012 14 - Other: See Comments Comments: Sweating/ FlushingMORPHINE 04/28/2004 Comments: nausea and vomitingPLAVIX (CLOPIDOGREL BISULFATE) 12/18/2011 14 - Other: See Comments Comments: HeartburnPREDNISONE 12/15/2008 Comments: Destroyed bone.CQDRTKS-YBJ-YOW REDUCTASE INHIBIT*04/27/2011 5 - IntoleranceTRICOR (FENOFIBRATE MICRONIZED) [...] vascular occlusive disease (HCC) [I7*Letter TextEncounter Number: [id number] Status:Closed by YOGESH ONOFRE MD on 12/22/17 Normal [facility] Vital Signs Date Time Vital Sign Value Performing Clinician Faci lity 05-06-2025 14:44-0400 Body height 165.[address] Daron Benton MD Work Phone: [facility] 05-06-2025 14:44-0400 Body mass index (BMI) [Ratio] 18.3 kg/m2 Dr. Daron Benton MD Work Phone: [facility] 05-06-2025 14:44-0400 Body temperature 97.5 [degF] Dr. Daron Benton MD Work Phone: [facility] 05-06-2025 14:44-0400 Body weight 49.[address] Daron Benton MD Work Phone: [facility] 05-06-2025 14:44-0400 Diastolic blood pressure 79 mm[Hg] Dr. Daron Benton MD Work Phone: [facility] 05-06-2025 14:44-0400 Heart rate 74 /min Dr. Daron Benton MD Work Phone: 9(571)114-805301 [place] [address] 05-06-2025 14:44-0400 Respiratory rate 16 /min Dr. Daron Benton MD Work Phone: 3(889)473-639275 [place] [address] 05-06-2025 14:44-0400 SaO2% (BldA) [Mass fraction] 98 % Dr. Daron Benton MD Work Phone: 6(659)218-185975 [place] [address] 05-06-2025 14:44-0400 Systolic blood pressure 163 mm[Hg] Dr. Daron Benton MD Work Phone: 3(429)693-571175 [place] [address] 04-22-2025 14:14-0400 Body temperature 97.7 [degF] Dr. Daron Benton MD Work Phone: 0(911)400-821675 [place] [address] 04-22-2025 14:14-0400 Diastolic blood pressure 74 mm[Hg] Dr. Daron Benton MD Work Phone: 1(469)545-849375 [place] [address] 04-22-2025 14:14-0400 Heart rate 124 /min Dr. Daron Benton MD Work Phone: 2(408)381-722375 [place] [address] 04-22-2025 14:14-0400 Respiratory rate 18 /min Dr. Daron Benton MD Work Phone: 4(218)424-691975 [place] [address] 04-22-2025 14:14-0400 SaO2% (BldA) [Mass fraction] 94 % Dr. Daron Benton MD Work Phone: 8(634)297-765575 [place] [address] 04-22-2025 14:14-0400 Systolic blood pressure 101 mm[Hg] Dr. Daron Benton MD Work Phone: 2(848)959-776975 [place] [address] 04-21-2025 15:30-0400 Body height 165.[address] Daron Benton MD Work Phone: 1(725)666-278475 [place] [address] 04-21-2025 15:30-0400 Body mass index (BMI) [Ratio] 16.7 kg/m2 Dr. Daron Benton MD Work Phone: 6(095)360-978875 [place] [address] 04-21-2025 15:30-0400 Body weight 45.[address] Daron Benton MD Work Phone: [facility] 04-18-2025 21:23-0400 Body temperature 98.9 [degF] Dr. Daron Benton MD Work Phone: [facility] 04-18-2025 21:23-0400 Diastolic blood pressure 79 mm[Hg] Dr. Daron Benton MD Work Phone: 7(004)266-294501 [place] [address] 04-18-2025 21:23-0400 Heart rate 62 /min Dr. Daron Benton MD Work Phone: [facility] 04-18-2025 21:23-0400 Respiratory rate 21 /min Dr. Daron Benton MD Work Phone: 9(387)555-095405 [address] 04-18-2025 21:23-0400 SaO2% (BldA) [Mass fraction] 100 % Dr. Daron Benton MD Work Phone: 1(208)678-287901 [place] [address] 04-18-2025 21:23-0400 Systolic blood pressure 141 mm[Hg] Dr. Daron Benton MD Work Phone: [facility] 04-18-2025 18:17-0400 Body height 165.[address] Daron Benton MD Work Phone: 1(885)662-266205 [address] 04-18-2025 18:17-0400 Body mass index (BMI) [Ratio] 16.9 kg/m2 Dr. Daron Benton MD Work Phone: [facility] 04-18-2025 18:17-0400 Body weight 46.[address] Daron Benton MD Work Phone: [facility] 04-18-2025 01:13-0400 Body temperature 97.7 [degF] Dr. Daron Benton MD Work Phone: [facility] 04-18-2025 01:13-0400 Diastolic blood pressure 68 mm[Hg] Dr. Daron Benton MD Work Phone: [facility] 04-18-2025 01:13-0400 Heart rate 68 /min Dr. Daron Benton MD Work Phone: 8(274)491-093901 [place] [address] 04-18-2025 01:13-0400 Respiratory rate 16 /min Dr. Daron Benton MD Work Phone: 1(128)069-760775 [place] [address] 04-18-2025 01:13-0400 SaO2% (BldA) [Mass fraction] 100 % Dr. Daron Benton MD Work Phone: 2(232)429-376875 [place] [address] 04-18-2025 01:13-0400 Systolic blood pressure 130 mm[Hg] Dr. Daron Benton MD Work Phone: 5(738)746-933875 [place] [address] 04-17-2025 22:17-0400 Body height 165.[address] Daron Benton MD Work Phone: 7(471)549-060875 [place] [address] 04-17-2025 22:17-0400 Body mass index (BMI) [Ratio] 16.9 kg/m2 Dr. Daron Benton MD Work Phone: 2(419)592-782175 [place] [address] 04-17-2025 22:17-0400 Body weight 46.[address] Daron Benton MD Work Phone: 4(599)723-854575 [place] [address] 04-11-2025 16:10-0400 Body temperature 97.6 [degF] Dr. Daron Benton MD Work Phone: 3(059)718-208775 [place] [address] 04-11-2025 16:10-0400 Diastolic blood pressure 67 mm[Hg] Dr. Daron Benton MD Work Phone: 3(979)371-631275 [place] [address] 04-11-2025 16:10-0400 Heart rate 56 /min Dr. Daron Benton MD Work Phone: 1(010)441-827975 [place] [address] 04-11-2025 16:10-0400 Respiratory rate 18 /min Dr. Daron Benton MD Work Phone: 0(583)393-422475 [place] [address] 04-11-2025 16:10-0400 SaO2% (BldA) [Mass fraction] 100 % Dr. Daron Benton MD Work Phone: 7(774)519-479675 [place] [address] 04-11-2025 16:10-0400 Systolic blood pressure 124 mm[Hg] Dr. Daron Benton MD Work Phone: 8(686)227-868275 [place] [address] 04-11-2025 13:17-0400 Body mass index (BMI) [Ratio] 19.1 kg/m2 Dr. Daron Benton MD Work Phone: [facility] 04-11-2025 13:17-0400 Body weight 52.[address] Daron Benton MD Work Phone: [facility] 04-08-2025 15:20-0400 Diastolic blood pressure 88 mm[Hg] Lizz Lynn [employer] - INFORMATION CLERK CASHIER Work Phone: [facility] 04-08-2025 15:20-0400 Heart rate 70 /min Lizz Lynn [employer] - INFORMATION CLERK CASHIER Work Phone: [facility] 04-08-2025 15:20-0400 Systolic blood pressure 151 mm[Hg] Lizzjeniffer Lynn [employer] - INFORMATION CLERK CASHIER Work Phone: [facility] 04-08-2025 14:15-0400 Body height 167.6 cm Lizz Lynn [employer] - INFORMATION CLERK CASHIER Work Phone: [facility] 04-08-2025 14:15-0400 Body mass index (BMI) [Ratio] 17.53 kg/m2 Lizz Lynn [employer] - INFORMATION CLERK CASHIER Work Phone: [facility] 04-08-2025 14:15-0400 Body weight 49.26 kg Lizz Lynn [employer] - INFORMATION CLERK CASHIER Work Phone: [facility] 04-02-2025 22:25-0400 Body temperature 98.1 [degF] Dr. Daron Benton MD Work Phone: [facility] 04-02-2025 22:25-0400 Diastolic blood pressure 79 mm[Hg] Dr. Daron Benton MD Work Phone: [facility] 04-02-2025 22:25-0400 Heart rate 73 /min Dr. Daron Benton MD Work Phone: [facility] 04-02-2025 22:25-0400 Respiratory rate 18 /min Dr. Daron Benton MD Work Phone: [facility] 04-02-2025 22:25-0400 SaO2% (BldA) [Mass fraction] 100 % Dr. Daron Benton MD Work Phone: [facility] 04-02-2025 22:25-0400 Systolic blood pressure 105 mm[Hg] Dr. Daron Benton MD Work Phone: [facility] 04-02-2025 19:21-0400 Body height 165.[address] Daron Benton MD Work Phone: [facility] 04-02-2025 19:21-0400 Body mass index (BMI) [Ratio] 18.8 kg/m2 Dr. Daron Benton MD Work Phone: [facility] 04-02-2025 19:21-0400 Body weight 51.[address] Daron Benton MD Work Phone: [facility] 03-04-2025 10:31-0400 Body height 167.6 cm Lizz Lynn [employer] - INFORMATION CLERK CASHIER Work Phone: [facility] 03-04-2025 10:31-0400 Body mass index (BMI) [Ratio] 18.34 kg/m2 Lizz Lynn [employer] - INFORMATION CLERK CASHIER Work Phone: [facility] 03-04-2025 10:31-0400 Body weight 51.53 kg Lizz Lynn [employer] - INFORMATION CLERK CASHIER Work Phone: [facility] 03-04-2025 10:31-0400 Diastolic blood pressure 75 mm[Hg] Lizz Lynn [employer] - INFORMATION CLERK CASHIER Work Phone: [facility] 03-04-2025 10:31-0400 Heart rate 64 /min Lizz Lynn [employer] - INFORMATION CLERK CASHIER Work Phone: [facility] 03-04-2025 10:31-0400 Systolic blood pressure 139 mm[Hg] Lizz Lynn [employer] - INFORMATION CLERK CASHIER Work Phone: [facility] 02-20-2025 09:08-0400 Body mass index (BMI) [Ratio] 19.8 kg/m2 Dr. Daron Benton MD Work Phone: [facility] 02-20-2025 09:08-0400 Body weight 53.[address] Daron Benton MD Work Phone: [facility] 02-20-2025 09:08-0400 Diastolic blood pressure 74 mm[Hg] Dr. Daron Benton MD Work Phone: 8(131)652-646301 [place] [address] 02-20-2025 09:08-0400 Heart rate 50 /min Dr. Daron Benton MD Work Phone: 2(182)870-045275 [place] [address] 02-20-2025 09:08-0400 Respiratory rate 18 /min Dr. Daron Benton MD Work Phone: 0(466)485-412375 [place] [address] 02-20-2025 09:08-0400 SaO2% (BldA) [Mass fraction] 100 % Dr. Daron Benton MD Work Phone: 5(376)925-255001 [place] [address] 02-20-2025 09:08-0400 Systolic blood pressure 121 mm[Hg] Dr. Daron Benton MD Work Phone: 7(003)912-339305 [address] 01-13-2025 16:01-0500 Heart rate 59 /min Dr. Daron Benton MD Work Phone: 1(516)135-547401 [place] [address] 01-13-2025 16:01-0500 Respiratory rate 16 /min Dr. Daron Benton MD Work Phone: 2(255)407-326701 [place] [address] 01-13-2025 14:34-0500 Body temperature 98 [degF] Dr. Daron Benton MD Work Phone: 9(609)707-387701 [place] [address] 01-13-2025 14:34-0500 Diastolic blood pressure 95 mm[Hg] Dr. Daron Benton MD Work Phone: 6(550)664-569001 [place] [address] 01-13-2025 14:34-0500 Inhaled oxygen flow rate 2 L/min Dr. Daron Benton MD Work Phone: 1(317)961-856101 [place] [address] 01-13-2025 14:34-0500 SaO2% (BldA) [Mass fraction] 94 % Dr. Daron Benton MD Work Phone: 3(718)089-967801 [place] [address] 01-13-2025 14:34-0500 Systolic blood pressure 111 mm[Hg] Dr. Daron Benton MD Work Phone: 8(288)172-863575 [place] [address] 01-13-2025 04:47-0500 Body mass index (BMI) [Ratio] 18.9 kg/m2 Dr. Daron Benton MD Work Phone: 9(304)970-106475 [place] [address] 01-13-2025 04:47-0500 Body weight 51.[address] Daron Benton MD Work Phone: 6(677)791-610275 [place] [address] 12-24-2024 10:03-0500 Body mass index (BMI) [Ratio] 19.4 kg/m2 Dr. Daron Benton MD Work Phone: 8(060)800-577475 [place] [address] 12-24-2024 10:03-0500 Body temperature 96.7 [degF] Dr. Daron Benton MD Work Phone: 8(538)680-929875 [place] [address] 12-24-2024 10:03-0500 Body weight 53.[address] Daron Benton MD Work Phone: 7(767)923-177375 [place] [address] 12-24-2024 10:03-0500 Diastolic blood pressure 77 mm[Hg] Dr. Daron Benton MD Work Phone: 2(258)704-701275 [place] [address] 12-24-2024 10:03-0500 Heart rate 69 /min Dr. Daron Benton MD Work Phone: 4(271)155-459175 [place] [address] 12-24-2024 10:03-0500 Respiratory rate 18 /min Dr. Daron Benton MD Work Phone: 8(877)675-448675 [place] [address] 12-24-2024 10:03-0500 SaO2% (BldA) [Mass fraction] 95 % Dr. Daron Benton MD Work Phone: 1(699)414-776675 [place] [address] 12-24-2024 10:03-0500 Systolic blood pressure 132 mm[Hg] Dr. Daron Benton MD Work Phone: 7(970)005-795575 [place] [address] 12-19-2024 13:20-0500 Body mass index (BMI) [Ratio] 19.4 kg/m2 Dr. Daron Benton MD Work Phone: 4(828)266-576501 [place] [address] 12-19-2024 13:20-0500 Body weight 53.[address] Daron Benton MD Work Phone: 2(439)786-075175 [place] [address] 12-19-2024 13:20-0500 Diastolic blood pressure 77 mm[Hg] Dr. Daron Benton MD Work Phone: 7(798)030-747575 [place] [address] 12-19-2024 13:20-0500 Heart rate 67 /min Dr. Daron Benton MD Work Phone: 4(199)937-035175 [place] [address] 12-19-2024 13:20-0500 Respiratory rate 18 /min Dr. Daron Benton MD Work Phone: 7(755)414-071875 [place] [address] 12-19-2024 13:20-0500 SaO2% (BldA) [Mass fraction] 96 % Dr. Daron Benton MD Work Phone: 7(553)061-933975 [place] [address] 12-19-2024 13:20-0500 Systolic blood pressure 124 mm[Hg] Dr. Daron Benton MD Work Phone: 1(737)823-257775 [place] [address] 12-17-2024 14:25-0500 Body temperature 97.8 [degF] Dr. Daron Benton MD Work Phone: 8(128)803-303975 [place] [address] 12-17-2024 14:25-0500 Diastolic blood pressure 94 mm[Hg] Dr. Daron Benton MD Work Phone: 0(319)983-769275 [place] [address] 12-17-2024 14:25-0500 Heart rate 65 /min Dr. Daron Benton MD Work Phone: 2(880)008-162975 [place] [address] 12-17-2024 14:25-0500 Respiratory rate 20 /min Dr. Daron Benton MD Work Phone: 8(904)052-809275 [place] [address] 12-17-2024 14:25-0500 SaO2% (BldA) [Mass fraction] 95 % Dr. Daron Benton MD Work Phone: 6(557)059-017575 [place] [address] 12-17-2024 14:25-0500 Systolic blood pressure 151 mm[Hg] Dr. Daron Benton MD Work Phone: 3(707)267-424901 [place] [address] 12-17-2024 10:13-0500 Body mass index (BMI) [Ratio] 19.5 kg/m2 Dr. Daron Benton MD Work Phone: 3(666)258-596101 [place] [address] 12-17-2024 10:13-0500 Body weight 53.[address] Daron Benton MD Work Phone: 8(548)772-963175 [place] [address] 12-11-2024 13:50-0500 Body temperature 98 [degF] Dr. Daron Benton MD Work Phone: 3(094)229-910575 [place] [address] 12-11-2024 13:50-0500 Diastolic blood pressure 87 mm[Hg] Dr. Daron Benton MD Work Phone: 7(732)812-734275 [place] [address] 12-11-2024 13:50-0500 Heart rate 70 /min Dr. Daron Benton MD Work Phone: 5(512)500-989075 [place] [address] 12-11-2024 13:50-0500 Respiratory rate 16 /min Dr. Daron Benton MD Work Phone: 2(740)169-086975 [place] [address] 12-11-2024 13:50-0500 SaO2% (BldA) [Mass fraction] 96 % Dr. Daron Benton MD Work Phone: 7(127)681-904575 [place] [address] 12-11-2024 13:50-0500 Systolic blood pressure 139 mm[Hg] Dr. Daron Benton MD Work Phone: 8(888)827-138101 [place] [address] 12-10-2024 10:11-0500 Body weight 51.[address] Daron Benton MD Work Phone: 1(993)888-245201 [place] [address] 12-09-2024 18:00-0500 Inhaled oxygen flow rate 2 L/min Dr. Daron Benton MD Work Phone: 6(528)577-685275 [place] [address] 12-09-2024 14:59-0500 Body mass index (BMI) [Ratio] 18.8 kg/m2 Dr. Daron Benton MD Work Phone: 5(625)478-859475 [place] [address] 02-25-2024 17:00-0400 Body temperature 98.2 [degF] Dr. Daron Benton Work Phone: [facility] 02-25-2024 17:00-0400 Diastolic blood pressure 73 mm[Hg] Dr. Daron Benton Work Phone: [facility] 02-25-2024 17:00-0400 Heart rate 62 /min Dr. Daron Benton Work Phone: [facility] 02-25-2024 17:00-0400 Inhaled oxygen flow rate 2 L/min Dr. Daron Benton Work Phone: [facility] 02-25-2024 17:00-0400 Respiratory rate 16 /min Dr. Daron Benton Work Phone: [facility] 02-25-2024 17:00-0400 SaO2% (BldA) [Mass fraction] 98 % Dr. Daron Benton Work Phone: [facility] 02-25-2024 17:00-0400 Systolic blood pressure 136 mm[Hg] Dr. Daron Benton Work Phone: [facility] 02-24-2024 23:41-0400 Body height [address] Daron Benton Work Phone: [facility] 02-24-2024 23:41-0400 Body mass index (BMI) [Ratio] 19.8 kg/m2 Dr. Daron Benton Work Phone: [facility] 02-24-2024 23:41-0400 Body weight 55.[address] Daron Benton Work Phone: [facility] 02-19-2024 16:00-0400 Body temperature 97.5 [degF] Dr. Daron Benton Work Phone: [facility] 02-19-2024 16:00-0400 Diastolic blood pressure 71 mm[Hg] Dr. Daron Benton Work Phone: [facility] 02-19-2024 16:00-0400 Heart rate 68 /min Dr. Daron Benton Work Phone: [facility] 02-19-2024 16:00-0400 Respiratory rate 17 /min Dr. Daron Benton Work Phone: [facility] 02-19-2024 16:00-0400 SaO2% (BldA) [Mass fraction] 92 % Dr. Daron Benton Work Phone: [facility] 02-19-2024 16:00-0400 Systolic blood pressure 124 mm[Hg] Dr. Daron Benton Work Phone: [facility] 02-19-2024 10:52-0400 Body height 167.[address] Daron Benton Work Phone: [facility] 02-19-2024 10:52-0400 Body mass index (BMI) [Ratio] 21.8 kg/m2 Dr. Daron Benton Work Phone: 6(826)277-159401 [place] [address] 02-19-2024 10:52-0400 Body weight 61.[address] Daron Benton Work Phone: [facility] 01-18-2024 11:47-0500 Body temperature 97.7 [degF] Dr. Daron Benton Work Phone: [facility] 01-18-2024 11:47-0500 Diastolic blood pressure 70 mm[Hg] Dr. Daron Benton Work Phone: [facility] 01-18-2024 11:47-0500 Heart rate 62 /min Dr. Daron Benton Work Phone: [facility] 01-18-2024 11:47-0500 Respiratory rate 18 /min Dr. Daron Benton Work Phone: [facility] 01-18-2024 11:47-0500 SaO2% (BldA) [Mass fraction] 95 % Dr. Daron Benton Work Phone: [facility] 01-18-2024 11:47-0500 Systolic blood pressure 121 mm[Hg] Dr. Daron Benton Work Phone: [facility] 01-18-2024 10:23-0500 Body height 165.[address] Daron Benton Work Phone: [facility] 01-18-2024 10:23-0500 Body mass index (BMI) [Ratio] 20.4 kg/m2 Dr. Daron Benton Work Phone: [facility] 01-18-2024 10:23-0500 Body weight 55.[address] Daron Benton Work Phone: [facility] 01-11-2024 08:22-0500 Diastolic blood pressure 57 mm[Hg] Dr. Daron Benton Work Phone: [facility] 01-11-2024 08:22-0500 Systolic blood pressure 132 mm[Hg] Dr. Daron Benton Work Phone: [facility] 01-11-2024 08:13-0500 Body temperature 98.5 [degF] Dr. Daron Benton Work Phone: [facility] 01-11-2024 08:13-0500 Heart rate 61 /min Dr. Daron Benton Work Phone: [facility] 01-11-2024 08:13-0500 Respiratory rate 16 /min Dr. Daron Benton Work Phone: [facility] 01-11-2024 08:13-0500 SaO2% (BldA) [Mass fraction] 98 % Dr. Daron Benton Work Phone: [facility] 01-11-2024 06:51-0500 Inhaled oxygen flow rate 2 L/min Dr. Daron Benton Work Phone: [facility] 01-11-2024 02:14-0500 Body height 165.[address] Daron Benton Work Phone: [facility] 01-11-2024 02:14-0500 Body mass index (BMI) [Ratio] 20.1 kg/m2 Dr. Daron Benton Work Phone: [facility] 01-11-2024 02:14-0500 Body weight [address] Daron Benton Work Phone: [facility] 12-21-2023 12:53-0500 Body mass index (BMI) [Ratio] 20.5 kg/m2 Dr. Daron Benton Work Phone: [facility] 12-21-2023 12:53-0500 Body weight 55.[address] Daron Benton Work Phone: [facility] 12-21-2023 12:53-0500 Diastolic blood pressure 89 mm[Hg] Dr. Daron Benton Work Phone: [facility] 12-21-2023 12:53-0500 Heart rate 50 /min Dr. Daron Benton Work Phone: [facility] 12-21-2023 12:53-0500 Respiratory rate 18 /min Dr. Daron Benton Work Phone: [facility] 12-21-2023 12:53-0500 SaO2% (BldA) [Mass fraction] 100 % Dr. Daron Benton Work Phone: [facility] 12-21-2023 12:53-0500 Systolic blood pressure 193 mm[Hg] Dr. Daron Benton Work Phone: [facility] 12-14-2023 13:43-0500 Body mass index (BMI) [Ratio] 19.37 kg/m2 Lizz Lynn [employer] - INFORMATION CLERK CASHIER Work Phone: [facility] 12-14-2023 13:43-0500 Body weight 54.43 kg Lizz Lynn [employer] - INFORMATION CLERK CASHIER Work Phone: [facility] 12-14-2023 13:43-0500 Diastolic blood pressure 78 mm[Hg] Lizz Lynn PRO[employer] - INFORMATION CLERK CASHIER Work Phone: [facility] 12-14-2023 13:43-0500 Heart rate 66 /min Lizz Lynn PRO[employer] - INFORMATION CLERK CASHIER Work Phone: [facility] 12-14-2023 13:43-0500 Systolic blood pressure 186 mm[Hg] Lizz Lynn PRO[employer] - INFORMATION CLERK CASHIER Work Phone: [facility] 12-07-2023 14:27-0500 Body temperature 97.4 [degF] Dr. Daron Benton Work Phone: [facility] 12-07-2023 14:27-0500 Diastolic blood pressure 79 mm[Hg] Dr. Daron Benton Work Phone: [facility] 12-07-2023 14:27-0500 Heart rate 50 /min Dr. Daron Benton Work Phone: [facility] 12-07-2023 14:27-0500 Respiratory rate 12 /min Dr. Daron Benton Work Phone: [facility] 12-07-2023 14:27-0500 SaO2% (BldA) [Mass fraction] 98 % Dr. Daron Benton Work Phone: [facility] 12-07-2023 14:27-0500 Systolic blood pressure 140 mm[Hg] Dr. Daron Benton Work Phone: [facility] 12-06-2023 16:45-0500 Body height 165.[address] Daron Benton Work Phone: [facility] 12-06-2023 16:45-0500 Body weight [address] Daron Benton Work Phone: [facility] 12-04-2023 07:00-0500 Inhaled oxygen flow rate 1 L/min Dr. Daron Benton Work Phone: [facility] 12-02-2023 12:37-0500 Body mass index (BMI) [Ratio] 20.5 kg/m2 Dr. Daron Benton Work Phone: [facility] 12-02-2023 11:40-0500 Diastolic blood pressure 48 mm[Hg] Dr. Daron Benton Work Phone: [facility] 12-02-2023 11:40-0500 Heart rate 48 /min Dr. Daron Benton Work Phone: [facility] 12-02-2023 11:40-0500 Respiratory rate 15 /min Dr. Daron Benton Work Phone: [facility] 12-02-2023 11:40-0500 SaO2% (BldA) [Mass fraction] 94 % Dr. Daron Benton Work Phone: [facility] 12-02-2023 11:40-0500 Systolic blood pressure 176 mm[Hg] Dr. Daron Benton Work Phone: [facility] 12-02-2023 06:33-0500 Body height 165.[address] Daron Benton Work Phone: [facility] 12-02-2023 06:33-0500 Body mass index (BMI) [Ratio] 20.5 kg/m2 Dr. Daron Benton Work Phone: [facility] 12-02-2023 06:33-0500 Body temperature 97.6 [degF] Dr. Daron Benton Work Phone: [facility] 12-02-2023 06:33-0500 Body weight [address] Daron Benton Work Phone: 4(040)957-102901 [place] [address] 11-27-2023 12:32-0500 Body height 165.[address] Daron Benton Work Phone: [facility] 11-27-2023 09:46-0500 SaO2% (BldA) [Mass fraction] 96 % Dr. Daron Benton Work Phone: [facility] 11-27-2023 09:32-0500 Body temperature 98 [degF] Dr. Daron Benton Work Phone: [facility] 11-27-2023 09:32-0500 Diastolic blood pressure 97 mm[Hg] Dr. Daron Benton Work Phone: [facility] 11-27-2023 09:32-0500 Heart rate 52 /min Dr. Daron Benton Work Phone: [facility] 11-27-2023 09:32-0500 Respiratory rate 14 /min Dr. Daron Benton Work Phone: [facility] 11-27-2023 09:32-0500 Systolic blood pressure 196 mm[Hg] Dr. Daron Benton Work Phone: [facility] 11-27-2023 09:01-0500 Body mass index (BMI) [Ratio] 20 kg/m2 Dr. Daron Benton Work Phone: [facility] 11-27-2023 09:01-0500 Body weight 54.[address] Daron Benton Work Phone: [facility] 11-26-2023 15:22-0500 Diastolic blood pressure 81 mm[Hg] Dr. Daron Betnon Work Phone: 0(200)913-445405 [address] 11-26-2023 15:22-0500 Heart rate 69 /min Dr. Daron Benton Work Phone: 7(065)649-473501 [place] [address] 11-26-2023 15:22-0500 Respiratory rate 16 /min Dr. Daron Benton Work Phone: [facility] 11-26-2023 15:22-0500 SaO2% (BldA) [Mass fraction] 96 % Dr. Daron Benton Work Phone: [facility] 11-26-2023 15:22-0500 Systolic blood pressure 149 mm[Hg] Dr. Daron Benton Work Phone: 7(453)611-823901 [place] [address] 11-26-2023 12:47-0500 Body height 165.[address] Daron Benton Work Phone: [facility] 11-26-2023 12:47-0500 Body mass index (BMI) [Ratio] 20.2 kg/m2 Dr. Daron Benton Work Phone: [facility] 11-26-2023 12:47-0500 Body temperature 97 [degF] Dr. Daron Benton Work Phone: [facility] 11-26-2023 12:47-0500 Body weight 55.[address] Daron Benton Work Phone: 4(159)946-766301 [place] [address] 11-21-2023 11:50-0500 Body temperature 98.3 [degF] Dr. Daron Benton Work Phone: [facility] 11-21-2023 11:50-0500 Diastolic blood pressure 72 mm[Hg] Dr. Daron Benton Work Phone: [facility] 11-21-2023 11:50-0500 Heart rate 54 /min Dr. Daron Benton Work Phone: 8(054)911-411001 [place] [address] 11-21-2023 11:50-0500 Respiratory rate 16 /min Dr. Daron Benton Work Phone: 4(966)270-751005 [address] 11-21-2023 11:50-0500 SaO2% (BldA) [Mass fraction] 94 % Dr. Daron Benton Work Phone: 4(379)642-011001 [place] [address] 11-21-2023 11:50-0500 Systolic blood pressure 134 mm[Hg] Dr. Daron Benotn Work Phone: 1(387)603-342505 [address] 11-21-2023 05:35-0500 Body mass index (BMI) [Ratio] 20.4 kg/m2 Dr. Daron Benton Work Phone: 3(109)363-748901 [place] [address] 11-21-2023 05:35-0500 Body weight 55.[address] Daron Benton Work Phone: 4(722)600-074401 [place] [address] 11-18-2023 15:44-0500 Body height 165.[address] Daron Benton Work Phone: [facility] 11-18-2023 15:18-0500 Body temperature 98.2 [degF] Dr. Daron Benton Work Phone: [facility] 11-18-2023 15:18-0500 Diastolic blood pressure 75 mm[Hg] Dr. Daron Benton Work Phone: [facility] 11-18-2023 15:18-0500 Heart rate 72 /min Dr. Daron Benton Work Phone: [facility] 11-18-2023 15:18-0500 Respiratory rate 17 /min Dr. Daron Benton Work Phone: [facility] 11-18-2023 15:18-0500 SaO2% (BldA) [Mass fraction] 93 % Dr. Daron Benton Work Phone: [facility] 11-18-2023 15:18-0500 Systolic blood pressure 161 mm[Hg] Dr. Daron Benton Work Phone: [facility] 11-18-2023 11:43-0500 Body height 165.[address] Daron Bneton Work Phone: [facility] 11-18-2023 11:43-0500 Body mass index (BMI) [Ratio] 20.9 kg/m2 Dr. Daron Benton Work Phone: 3(184)505-370405 [address] 11-18-2023 11:43-0500 Body weight 57.[address] Daron Benton Work Phone: 4(901)116-022601 [place] [address] 11-16-2023 11:05-0500 Body height 165.[address] Daron Benton Work Phone: [facility] 11-16-2023 11:05-0500 Body weight 54.[address] Daron Benton Work Phone: 8(305)223-128605 [address] 11-16-2023 09:53-0500 Heart rate 66 /min Dr. Daron Benton Work Phone: 5(950)126-476701 [place] [address] 11-16-2023 09:31-0500 Body temperature 97.7 [degF] Dr. Daron Benton Work Phone: [facility] 11-16-2023 09:31-0500 Diastolic blood pressure 71 mm[Hg] Dr. Daron Benton Work Phone: [facility] 11-16-2023 09:31-0500 Respiratory rate 16 /min Dr. Daron Benton Work Phone: [facility] 11-16-2023 09:31-0500 SaO2% (BldA) [Mass fraction] 96 % Dr. Daron Benton Work Phone: 4(855)143-828205 [address] 11-16-2023 09:31-0500 Systolic blood pressure 138 mm[Hg] Dr. Daron Benton Work Phone: 6(441)261-807575 [place] [address] 11-16-2023 01:54-0500 Body mass index (BMI) [Ratio] 19.9 kg/m2 Dr. Daron Benton Work Phone: 3(381)017-359875 [place] [address] 11-15-2023 15:21-0500 Diastolic blood pressure 49 mm[Hg] Dr. Daron Benton Work Phone: 0(074)318-584375 [place] [address] 11-15-2023 15:21-0500 Heart rate 60 /min Dr. Daron Benton Work Phone: 2(936)435-838375 [place] [address] 11-15-2023 15:21-0500 Respiratory rate 18 /min Dr. Daron Benton Work Phone: 3(655)450-196375 [place] [address] 11-15-2023 15:21-0500 SaO2% (BldA) [Mass fraction] 98 % Dr. Daron Benton Work Phone: 5(040)548-245975 [place] [address] 11-15-2023 15:21-0500 Systolic blood pressure 119 mm[Hg] Dr. Daron Benton Work Phone: 4(135)727-457475 [place] [address] 11-15-2023 13:28-0500 Body temperature 97.8 [degF] Dr. Daron Benton Work Phone: 4(783)087-877175 [place] [address] 11-15-2023 11:22-0500 Body height 165.[address] Daron Benton Work Phone: 9(158)846-489675 [place] [address] 11-15-2023 11:22-0500 Body mass index (BMI) [Ratio] 21.3 kg/m2 Dr. Daron Benton Work Phone: 7(676)304-442575 [place] [address] 11-15-2023 11:22-0500 Body weight 58.[address] Daron Benton Work Phone: 6(897)194-618975 [place] [address] 11-02-2023 13:04-0500 Body mass index (BMI) [Ratio] 20.5 kg/m2 Dr. Daron Benton Work Phone: 0(692)227-794201 [place] [address] 11-02-2023 13:04-0500 Body weight 55.[address] Daron Benton Work Phone: [facility] 11-02-2023 13:04-0500 Diastolic blood pressure 68 mm[Hg] Dr. Daron Benton Work Phone: [facility] 11-02-2023 13:04-0500 Heart rate 89 /min Dr. Daron Benton Work Phone: [facility] 11-02-2023 13:04-0500 Respiratory rate 18 /min Dr. Daron Benton Work Phone: [facility] 11-02-2023 13:04-0500 SaO2% (BldA) [Mass fraction] 100 % Dr. Daron Benton Work Phone: [facility] 11-02-2023 13:04-0500 Systolic blood pressure 109 mm[Hg] Dr. Daron Benton Work Phone: [facility] 10-05-2023 08:07-0500 Diastolic blood pressure 82 mm[Hg] Dr. Daron Benton Work Phone: [facility] 10-05-2023 08:07-0500 Respiratory rate 16 /min Dr. Daron Benton Work Phone: [facility] 10-05-2023 08:07-0500 SaO2% (BldA) [Mass fraction] 96 % Dr. Daron Benton Work Phone: [facility] 10-05-2023 08:07-0500 Systolic blood pressure 214 mm[Hg] Dr. Daron Benton Work Phone: [facility] 10-05-2023 00:43-0500 Body height 165.[address] Daron Benton Work Phone: [facility] 10-05-2023 00:43-0500 Body mass index (BMI) [Ratio] 21.7 kg/m2 Dr. Daron Benton Work Phone: [facility] 10-05-2023 00:43-0500 Body temperature 97.8 [degF] Dr. Daron Benton Work Phone: [facility] 10-05-2023 00:43-0500 Body weight 59.[address] Daron Benton Work Phone: [facility] 10-05-2023 00:43-0500 Heart rate 55 /min Dr. Daron Benton Work Phone: [facility] 05-24-2023 11:16-0400 Body weight 52.[address] Daron Benton Work Phone: [facility] 05-24-2023 11:16-0400 Diastolic blood pressure 86 mm[Hg] Dr. Daron Benton Work Phone: [facility] 05-24-2023 11:16-0400 Heart rate 56 /min Dr. Daron Benton Work Phone: [facility] 05-24-2023 11:16-0400 Respiratory rate 20 /min Dr. Daron Benton Work Phone: [facility] 05-24-2023 11:16-0400 Systolic blood pressure 120 mm[Hg] Dr. Daron Benton Work Phone: [facility] 05-24-2023 09:19-0400 Body height 165.[address] Daron Benton Work Phone: [facility] 04-08-2023 12:14-0400 Diastolic blood pressure 87 mm[Hg] Dr. Daron Benton Work Phone: [facility] 04-08-2023 12:14-0400 Heart rate 50 /min Dr. Daron Benton Work Phone: [facility] 04-08-2023 12:14-0400 Respiratory rate 12 /min Dr. Daron Benton Work Phone: [facility] 04-08-2023 12:14-0400 SaO2% (BldA) [Mass fraction] 98 % Dr. Daron Benton Work Phone: [facility] 04-08-2023 12:14-0400 Systolic blood pressure 162 mm[Hg] Dr. Daron Benton Work Phone: [facility] 04-08-2023 09:19-0400 Body height 165.[address] Daron Benton Work Phone: [facility] 04-08-2023 09:19-0400 Body mass index (BMI) [Ratio] 19.1 kg/m2 Dr. Daron Benton Work Phone: [facility] 04-08-2023 09:19-0400 Body temperature 97.5 [degF] Dr. Daron Benton Work Phone: 4(249)[phone] [place] [address] 04-08-2023 09:19-0400 Body weight [address] Daron Benton Work Phone: 3(027)[phone] [address] 03-31-2023 15:10-0400 Diastolic blood pressure 82 mm[Hg] Dr. Daron Benton Work Phone: 9(566)[phone] [place] [address] 03-31-2023 15:10-0400 Heart rate 45 /min Dr. Daron Benton Work Phone: 6(436)[phone] [place] [address] 03-31-2023 15:10-0400 Respiratory rate 16 /min Dr. Daron Benton Work Phone: 4(586)[phone] [address] 03-31-2023 15:10-0400 SaO2% (BldA) [Mass fraction] 100 % Dr. Daron Benton Work Phone: [facility] 03-31-2023 15:10-0400 Systolic blood pressure 198 mm[Hg] Dr. Daron Benton Work Phone: [facility] 03-31-2023 12:40-0400 Body mass index (BMI) [Ratio] 19.5 kg/m2 Dr. Daron Benton Work Phone: [facility] 03-31-2023 12:40-0400 Body weight 53.[address] Daron Benton Work Phone: [facility] 03-31-2023 12:33-0400 Body height 165.[address] Daron Benton Work Phone: [facility] 03-31-2023 12:33-0400 Body temperature 96.9 [degF] Dr. Daron Benton Work Phone: [facility] 03-16-2023 12:26-0400 Body height 165.[address] Daron Benton Work Phone: [facility] 03-16-2023 12:26-0400 Body mass index (BMI) [Ratio] 19.1 kg/m2 Dr. Daron Benton Work Phone: [facility] 03-16-2023 12:26-0400 Body temperature 97.3 [degF] Dr. Daron Benton Work Phone: [facility] 03-16-2023 12:26-0400 Body weight 52.[address] Daron Benton Work Phone: [phone] [place] [address] 03-16-2023 12:26-0400 Diastolic blood pressure 85 mm[Hg] Dr. Daron Benton Work Phone: [facility] 03-16-2023 12:26-0400 Heart rate 58 /min Dr. Daron Benton Work Phone: [facility] 03-16-2023 12:26-0400 Respiratory rate 14 /min Dr. Daron Benton Work Phone: [facility] 03-16-2023 12:26-0400 SaO2% (BldA) [Mass fraction] 100 % Dr. Daron Benton Work Phone: [facility] 03-16-2023 12:26-0400 Systolic blood pressure 163 mm[Hg] Dr. Daron Benton Work Phone: [phone] [place] [address] 11-24-2022 18:46-0500 Body height 167.[address] Daron Benton Work Phone: [facility] 11-24-2022 18:46-0500 Body mass index (BMI) [Ratio] 19.3 kg/m2 Dr. Daron Benton Work Phone: [facility] 11-24-2022 18:46-0500 Body temperature 97.2 [degF] Dr. Daron Benton Work Phone: [facility] 11-24-2022 18:46-0500 Body weight 54.[address] Daron Benton Work Phone: [facility] 11-24-2022 18:46-0500 Diastolic blood pressure 106 mm[Hg] Dr. Daron Benton Work Phone: [facility] 11-24-2022 18:46-0500 Heart rate 61 /min Dr. Daron Benton Work Phone: [facility] 11-24-2022 18:46-0500 Respiratory rate 18 /min Dr. Daron Benton Work Phone: [facility] 11-24-2022 18:46-0500 SaO2% (BldA) [Mass fraction] 100 % Dr. Daron Benton Work Phone: [facility] 11-24-2022 18:46-0500 Systolic blood pressure 159 mm[Hg] Dr. Daron Benton Work Phone: [facility] 11-09-2022 14:07-0500 Diastolic Blood Pressure Non-Invasive 66 1 TYE BARNETT MD [facility] 11-09-2022 14:07-0500 Heart rate 56 /min TYE BARNETT MD [facility] 11-09-2022 14:07-0500 Systolic Blood Pressure Non-Invasive 155 1 TYE BARNETT MD [facility] 11-09-2022 13:42-0500 Diastolic Blood Pressure Non-Invasive 69 1 TYE BARNETT MD [facility] 11-09-2022 13:42-0500 Heart rate 58 /min TYE BARNETT MD [facility] 11-09-2022 13:42-0500 Systolic Blood Pressure Non-Invasive 156 1 TYE BARNETT MD [facility] 11-09-2022 13:14-0500 Diastolic Blood Pressure Non-Invasive 86 1 TYE BARNETT MD [facility] 11-09-2022 13:14-0500 Heart rate 54 /min TYE BARNETT MD [facility] 11-09-2022 13:14-0500 Systolic Blood Pressure Non-Invasive 175 1 TYE BARNETT MD [facility] 11-09-2022 11:25-0500 Reason For Taking VItal Signs TYE BARNETT MD [facility] 11-09-2022 11:25-0500 Respiratory rate 16 /min TYE BARNETT MD [facility] 11-09-2022 11:03-0500 Respiratory rate 16 /min TYE BARNETT MD [facility] 11-09-2022 10:38-0500 Respiratory rate 16 /min TYE BARNETT MD [facility] 11-09-2022 06:29-0500 Blood Pressure Location TYE BARNETT MD [facility] 11-09-2022 06:29-0500 Body height 167.6 cm TYE BARNETT MD [facility] 11-09-2022 06:29-0500 Body temperature 97.7 [degF] TYE BARNETT MD [facility] 11-09-2022 06:29-0500 Body weight 54.8 kg TYE BARNETT MD [facility] 11-09-2022 06:29-0500 Body weight 19.51 kg/m2 TYE BARNETT MD [facility] 10-26-2022 13:20-0500 Body mass index (BMI) [Ratio] 19 kg/m2 Dr. Daron Benton Work Phone: [facility] 10-26-2022 13:20-0500 Body weight 53.[address] Daron Benton Work Phone: [facility] 10-26-2022 13:20-0500 Diastolic blood pressure 70 mm[Hg] Dr. Daron Benton Work Phone: [facility] 10-26-2022 13:20-0500 Heart rate 51 /min Dr. Daron Benton Work Phone: [facility] 10-26-2022 13:20-0500 Respiratory rate 18 /min Dr. Daron Benton Work Phone: [facility] 10-26-2022 13:20-0500 SaO2% (BldA) [Mass fraction] 100 % Dr. Daron Benton Work Phone: [facility] 10-26-2022 13:20-0500 Systolic blood pressure 129 mm[Hg] Dr. Daron Benton Work Phone: [facility] 05-16-2022 12:37-0400 Body height 167.[address] Daron Benton Work Phone: [facility] Work Phone: 05-16-2022 12:37-0400 Body mass index (BMI) [Ratio] 19.5 kg/m2 Dr. Daron Benton Work Phone: [facility] Work Phone: 05-16-2022 12:37-0400 Body weight 54.[address] Daron Benton Work Phone: [facility] Work Phone: 05-16-2022 12:37-0400 Diastolic blood pressure 75 mm[Hg] Dr. Daron Benton Work Phone: [facility] Work Phone: 05-16-2022 12:37-0400 Heart rate 57 /min Dr. Daron Benton Work Phone: [facility] Work Phone: 05-16-2022 12:37-0400 Respiratory rate 18 /min Dr. Daron Benton Work Phone: [facility] Work Phone: 05-16-2022 12:37-0400 SaO2% (BldA) [Mass fraction] 98 % Dr. Daron Benton Work Phone: [facility] Work Phone: 05-16-2022 12:37-0400 Systolic blood pressure 115 mm[Hg] Dr. Daron Benton Work Phone: [facility] Work Phone: 02-22-2022 10:52-0400 Body height 167.[address] Daron Benton Work Phone: [facility] Work Phone: 02-22-2022 10:52-0400 Body mass index (BMI) [Ratio] 20.1 kg/m2 Dr. Daron Benton Work Phone: [facility] Work Phone: 02-22-2022 10:52-0400 Body weight 56.[address] Daron Benton Work Phone: [facility] Work Phone: 02-22-2022 10:52-0400 Diastolic blood pressure 94 mm[Hg] Dr. Daron Benton Work Phone: [facility] Work Phone: 02-22-2022 10:52-0400 Heart rate 56 /min Dr. Daron Benton Work Phone: [facility] Work Phone: 02-22-2022 10:52-0400 Respiratory rate 18 /min Dr. Daron Benton Work Phone: [facility] Work Phone: 02-22-2022 10:52-0400 SaO2% (BldA) [Mass fraction] 96 % Dr. Daron Benton Work Phone: [facility] Work Phone: 02-22-2022 10:52-0400 Systolic blood pressure 169 mm[Hg] Dr. Daron Benton Work Phone: [facility] Work Phone: 02-20-2022 19:23-0400 Diastolic blood pressure 89 mm[Hg] Dr. Daron Benton Work Phone: [facility] Work Phone: 02-20-2022 19:23-0400 Heart rate 67 /min Dr. Daron Benton Work Phone: [facility] Work Phone: 02-20-2022 19:23-0400 Respiratory rate 15 /min Dr. Daron Benton Work Phone: [facility] Work Phone: 02-20-2022 19:23-0400 SaO2% (BldA) [Mass fraction] 97 % Dr. Daron Benton Work Phone: [facility] Work Phone: 02-20-2022 19:23-0400 Systolic blood pressure 172 mm[Hg] Dr. Daron Benton Work Phone: [facility] Work Phone: 02-20-2022 16:38-0400 Body mass index (BMI) [Ratio] 20.6 kg/m2 Dr. Daron Benton Work Phone: [facility] Work Phone: 02-20-2022 16:38-0400 Body temperature 96.5 [degF] Dr. Daron Benton Work Phone: [facility] Work Phone: 02-20-2022 16:38-0400 Body weight 58.[address] Daron Benton Work Phone: [facility] Work Phone: 02-18-2022 07:24-0400 Diastolic blood pressure 84 mm[Hg] Dr. Daron Benton Work Phone: [facility] Work Phone: 02-18-2022 07:24-0400 Heart rate 82 /min Dr. Daron Benton Work Phone: [facility] Work Phone: 02-18-2022 07:24-0400 Respiratory rate 16 /min Dr. Daron Benton Work Phone: [facility] Work Phone: 02-18-2022 07:24-0400 SaO2% (BldA) [Mass fraction] 98 % Dr. Daron Benton Work Phone: [facility] Work Phone: 02-18-2022 07:24-0400 Systolic blood pressure 145 mm[Hg] Dr. Daron Benton Work Phone: [facility] Work Phone: 02-18-2022 04:09-0400 Body height 167.[address] Daron Benton Work Phone: [facility] Work Phone: 02-18-2022 04:09-0400 Body mass index (BMI) [Ratio] 21.2 kg/m2 Dr. Daron Benton Work Phone: [facility] Work Phone: 02-18-2022 04:09-0400 Body temperature 97 [degF] Dr. Daron Benton Work Phone: [facility] Work Phone: 02-18-2022 04:09-0400 Body weight 59.[address] Daron Benton Work Phone: [facility] Work Phone: 02-17-2022 22:28-0400 Diastolic blood pressure 87 mm[Hg] Dr. Daron Benton Work Phone: [facility] Work Phone: 02-17-2022 22:28-0400 Heart rate 82 /min Dr. Daron Benton Work Phone: [facility] Work Phone: 02-17-2022 22:28-0400 Respiratory rate 15 /min Dr. Daron Benton Work Phone: [facility] Work Phone: 02-17-2022 22:28-0400 SaO2% (BldA) [Mass fraction] 98 % Dr. Daron Benton Work Phone: [facility] Work Phone: 02-17-2022 22:28-0400 Systolic blood pressure 145 mm[Hg] Dr. Daron Benton Work Phone: [facility] Work Phone: 02-17-2022 21:33-0400 Body height 167.[address] Daron Benton Work Phone: [facility] Work Phone: 02-17-2022 21:33-0400 Body mass index (BMI) [Ratio] 20.6 kg/m2 Dr. Daron Benton Work Phone: [facility] Work Phone: 02-17-2022 21:33-0400 Body temperature 98.1 [degF] Dr. Daron Benton Work Phone: [facility] Work Phone: 02-17-2022 21:33-0400 Body weight 58.[address] Daron Benton Work Phone: [facility] Work Phone: 02-14-2022 23:00-0400 Diastolic blood pressure 78 mm[Hg] Dr. Daron Benton Work Phone: [facility] Work Phone: 02-14-2022 23:00-0400 Heart rate 78 /min Dr. Daron Benton Work Phone: [facility] Work Phone: 02-14-2022 23:00-0400 Respiratory rate 16 /min Dr. Daron Benton Work Phone: [facility] Work Phone: 02-14-2022 23:00-0400 SaO2% (BldA) [Mass fraction] 97 % Dr. Daron Benton Work Phone: [facility] Work Phone: 02-14-2022 23:00-0400 Systolic blood pressure 159 mm[Hg] Dr. Daron Benton Work Phone: [facility] Work Phone: 02-14-2022 15:46-0400 Body mass index (BMI) [Ratio] 22 kg/m2 Dr. Daron Benton Work Phone: [facility] Work Phone: 02-14-2022 15:46-0400 Body temperature 98.2 [degF] Dr. Daron Benton Work Phone: [facility] Work Phone: 02-14-2022 15:46-0400 Body weight 61.[address] Daron Benton Work Phone: [facility] Work Phone: 02-08-2022 12:58-0400 Body mass index (BMI) [Ratio] 20.5 kg/m2 Dr. Daron Benton Work Phone: [facility] Work Phone: 02-08-2022 12:58-0400 Body weight 57.[address] Daron Benton Work Phone: [facility] Work Phone: 02-08-2022 12:58-0400 Diastolic blood pressure 76 mm[Hg] Dr. Daron Benton Work Phone: [facility] Work Phone: 02-08-2022 12:58-0400 Heart rate 51 /min Dr. Daron Benton Work Phone: [facility] Work Phone: 02-08-2022 12:58-0400 Respiratory rate 18 /min Dr. Daron Benton Work Phone: [facility] Work Phone: 02-08-2022 12:58-0400 SaO2% (BldA) [Mass fraction] 99 % Dr. Daron Benton Work Phone: [facility] Work Phone: 02-08-2022 12:58-0400 Systolic blood pressure 136 mm[Hg] Dr. Daron Benton Work Phone: [facility] Work Phone: 02-08-2022 12:58-0400 Body mass index (BMI) [Ratio] 20.5 kg/m2 Dr. Daron Benton Work Phone: [facility] Work Phone: 02-08-2022 12:58-0400 Body weight 57.[address] Daron Benton Work Phone: [facility] Work Phone: 02-08-2022 12:58-0400 Diastolic blood pressure 76 mm[Hg] Dr. Daron Benton Work Phone: [facility] Work Phone: 02-08-2022 12:58-0400 Heart rate 51 /min Dr. Daron Benton Work Phone: [facility] Work Phone: 02-08-2022 12:58-0400 Respiratory rate 18 /min Dr. Daron Benton Work Phone: [facility] Work Phone: 02-08-2022 12:58-0400 SaO2% (BldA) [Mass fraction] 99 % Dr. Daron Benton Work Phone: [facility] Work Phone: 02-08-2022 12:58-0400 Systolic blood pressure 136 mm[Hg] Dr. Daron Benton Work Phone: [facility] Work Phone: 01-23-2022 10:55-0500 Body mass index (BMI) [Ratio] 21 kg/m2 Dr. Daron Benton Work Phone: [facility] Work Phone: 01-23-2022 10:55-0500 Body temperature 97.3 [degF] Dr. Daron Benton Work Phone: [facility] Work Phone: 01-23-2022 10:55-0500 Body weight 59.[address] Daron Benton Work Phone: [facility] Work Phone: 01-23-2022 10:55-0500 Diastolic blood pressure 105 mm[Hg] Dr. Daron Benton Work Phone: [facility] Work Phone: 01-23-2022 10:55-0500 Heart rate 54 /min Dr. Daron Benton Work Phone: [facility] Work Phone: 01-23-2022 10:55-0500 Respiratory rate 16 /min Dr. Daron Benton Work Phone: [facility] Work Phone: 01-23-2022 10:55-0500 SaO2% (BldA) [Mass fraction] 96 % Dr. Daron Benton Work Phone: [facility] Work Phone: 01-23-2022 10:55-0500 Systolic blood pressure 194 mm[Hg] Dr. Daron Benton Work Phone: [facility] Work Phone: 01-23-2022 09:55-0500 Body mass index (BMI) [Ratio] 21 kg/m2 Dr. Daron Benton Work Phone: [facility] Work Phone: 01-23-2022 09:55-0500 Body temperature 97.3 [degF] Dr. Daron Benton Work Phone: [facility] Work Phone: 01-23-2022 09:55-0500 Body weight 59.[address] Daron Benton Work Phone: [facility] Work Phone: 01-23-2022 09:55-0500 Diastolic blood pressure 105 mm[Hg] Dr. Daron Benton Work Phone: [facility] Work Phone: 01-23-2022 09:55-0500 Heart rate 54 /min Dr. Daron Benton Work Phone: [facility] Work Phone: 01-23-2022 09:55-0500 Respiratory rate 16 /min Dr. Daron Benton Work Phone: [facility] Work Phone: 01-23-2022 09:55-0500 SaO2% (BldA) [Mass fraction] 96 % Dr. Daron Benton Work Phone: [facility] Work Phone: 01-23-2022 09:55-0500 Systolic blood pressure 194 mm[Hg] Dr. Daron Benton Work Phone: [facility] Work Phone: 01-18-2022 07:11-0500 Body weight 56.[address] Daron Benton Work Phone: [facility] Work Phone: 01-18-2022 06:11-0500 Body weight 56.[address] Daron Benton Work Phone: [facility] Work Phone: 01-17-2022 08:23-0500 Body mass index (BMI) [Ratio] 20.7 kg/m2 Dr. Daron Benton Work Phone: [facility] Work Phone: 01-17-2022 07:23-0500 Body mass index (BMI) [Ratio] 20.7 kg/m2 Dr. Daron Benton Work Phone: [facility] Work Phone: Encounters Encounter Date Encounter Type Care Provider Facility Start: 05-20-2025 ambulatory Lizz Lynn Facilit y:[facility] Start: 05-15-2025 End: 05-15-2025 Dr. Tye Barnett MD -[facility] Work Phone: Start: 05-15-2025 End: 05-15-2025 ambulatory Daron Benton Facility:[facility] Start: 05-06-2025 End: 05-06-2025 Iona HAMMOND -[facility] Work Phone: Start: 05-06-2025 End: 05-06-[address] Daron Benton MD Work Phone: [facility] Work Phone: Start: 05-05-2025 End: 05-06-2025 Telephone encounter Lizz Lynn [employer] - INFORMATION CLERK CASHIER Work Phone: [facility] Comment on above: Prior Authorization Start: 04-28-2025 ambulatory Negar Elizondoi ty:[facility] Start: 04-24-2025 End: 04-24-2025 Telephone encounter Lizz Lynn [employer] - INFORMATION CLERK CASHIER Work Phone: [facility] Comment on above: Med Refill (Baclofen ) Start: 04-22-2025 Kevin Gonzalez -[facility] Start: 04-22-2025 Dr. Roman Mckeon MD -[facility] Work Phone: Start: 04-21-2025 Kevin Friend DO -[facility] Start: 04-21-2025 Dr. Sommer archibald MD -[facility] Work Phone: Start: 04-20-2025 Kevin [...] Office outpatient visit 15 minutes Lizz Lynn [employer] - INFORMATION CLERK CASHIER Work Phone: [facility] Comment on above: Multiple sclerosis ( HCC) (Primary Dx); Dysphasia Start: 04-08-2025 End: 04-08-2025 ambulatory LIZZ LYNN [facility] Start: 04-02-2025 End: 04-02-2025 Dr. Daron Benton MD Work Phone: -Emergency Department Work Phone: Start: 04-02-2025 End: 04-02-2025 Emergency department patient visit Dr. Daron Benton MD Work Phone: [facility] Work Phone: Start: 03-19-2025 ambulatory Daron [place]: [facility] Start: 03-19-2025 Non-patient / Non-visit Dr. Chico FOX -[facility] Start: 03-19-2025 End: 03-19-[address] Orlando Jacob MD -Cardiovascular Services Work Phone: Start: 03-19-2025 End: 03-19-2025 Dr. Orlando Jacob MD -[facility] Start: 03-19-2025 End: 03-19-2025 ambulatory Betsey PEÑA Facility:[facility] Start: 03-09-2025 End: 03-09-2025 Telephone encounter Lizz Lynn APRN - INFORMATION CLERK CASHIER Work Phone: [facility] Clinical Communication Comment on above: Orders (MRI order) Start: 03-04-2025 End: 03-04-2025 Office outpatient visit 15 minutes Lizz Lynn APRN - INFORMATION CLERK CASHIER Work Phone: [facility] Comment on above: Multiple sclerosis ( HCC) (Primary Dx); Mild cognitive impairment; Fatigue, unspecified type; Deficiency of multiple nutrient elements Start: 03-04-2025 End: 03-04-20[facility] Start: 02-20-2025 End: 02-20-2025 Patient encounter procedure Betsey PEÑA -[facility] Work Phone: Start: 02-20-2025 End: 02-20-2025 Betsey PEÑA -[facility] Work Phone: Start: 02-20-2025 End: 02-20-2025 ambulatory Daron Benton Facility:[facility] Start: 01-15-2025 End: 01-15-[address] Daron Benton MD -[facility] [place] Work Phone: Start: 01-15-2025 End: 01-15-2025 Dr. Daron Benton MD -[facility] [place] Work Phone: Start: 01-15-2025 End: 01-15-2025 ambulatory Daron Benton Facility:[facility] Start: 01-13-2025 Non-patient / Non-[facility] Work Phone: Start: 01-13-2025 Dr. Dex claros [facility] Work Phone: Start: 01-12-2025 Non-patient / Non-visit Dr. Damian silva [facility] Work Phone: Start: 01-12-2025 Dr. Dex claros [facility] Work Phone: Start: 01-12-2025 Non-patient / Non-visit Dr. Rafaela Smiley MD -[facility] Start: 01-12-2025 Dr. Bhavik blevins MD [facility] Start: 01-12-2025 [facility] Start: 01-12-2025 Non-patient / Non-visit Dr. Kacie Weiner MD [facility] Start: 01-12-2025 Dr. Kofi Weiner MD [facility] Start: 01-11-2025 Non-patient / Non-visit Dr. Kacie Watson MD [facility] Work Phone: Start: 01-11-2025 Dr. Neha simpson MD [facility] Work Phone: Start: 01-11-2025 Non-patient / Non-visit Dr. Carlos A olea MD -[facility] Start: 01-11-2025 Dr. Carlos A Parikh MD [facility] Start: 01-10-2025 ambulatory Benjy Mark Facility: [facility] Start: 01-10-2025 End: 01-13-2025 Evaluation and management of inpatient Dr. Dex Worrell DO -Progressive Care Unit Work Phone: Start: 01-10-2025 End: 01-13-2025 Dr. Dex Worrell DO -[facility] Care [facility] Work Phone: Start: 12-24-2024 End: 12-24-2024 Patient encounter procedure TRAVELING REPRESENTATIVE Negar Mckeon [facility] Work Phone: Start: 12-24-2024 End: 12-24-2024 TRAVELING REPRESENTATIVE Negar Mckeon [facility] Work Phone: Start: 12-24-2024 End: 12-24-2024 ambulatory Negar Mckeon Facility:[facility] Start: 12-19-2024 End: 12-19-2024 Patient encounter procedure Betsey PEÑA -[facility] Work Phone: Start: 12-19-2024 End: 12-19-2024 Betsey PEÑA -[facility] Work Phone: Start: 12-19-2024 End: 12-19-2024 ambulatory Betsey PEÑA Facility:[facility] Start: 12-17-2024 End: 12-17-2024 Dr. [facility] Work Phone: Start: 12-17-2024 End: 12-17-2024 Emergency department patient visit Daron Benton Facility:[facility] Start: 12-11-2024 Dr. Neha simpson MD -[facility] Work Phone: Start: 12-10-2024 Dr. Neha simpson MD -[facility] Work Phone: Start: 12-10-2024 Dr. Kofi Weiner MD -[facility] Start: 12-09-2024 End: 12-11-2024 ambulatory Trina Tyler Facility:[facility] Start: 12-09-2024 End: 12-11-2024 Dr. Neha Watson MD -Progressive Care Unit Work Phone: Start: 11-28-2024 End: 11-28-2024 Emergency department patient visit Daron Benton Facility:[facility] Start: 11-24-2024 End: 11-24-2024 ambulatory Daron Benton Facility:[facility] Start: 11-20-2024 End: 11-20-2024 Refjusta Lynn [employer] - INFORMATION CLERK CASHIER Work Phone: [facility] Comment on above: Multiple sclerosis ( HCC) Start: 10-08-2024 End: 10-08-2024 ambulatory Daron Benton Facility:[facility] Start: 10-06-2024 ambulatory Daron Benton [facility] Start: 10-03-2024 End: 10-03-2024 ambulatory Daron Benton Facility:[facility] Start: 10-01-2024 End: 10-01-2024 ambulatory Daron eBnton Facility:[facility] Start: 09-14-2024 End: 09-15-2024 Refill Mamta Wood [employer] - INFORMATION CLERK CASHIER Work Phone: [facility] Comment on above: Multiple sclerosis ( HCC) Start: 08-27-2024 End: 08-27-2024 ambulatory Daron Benton Facility:[facility] Start: 08-25-2024 End: 08-25-2024 ambulatory Daron Benton Facility:[facility] Start: 08-21-2024 End: 08-21-2024 ambulatory Daron Benton Facility:[facility] Start: 08-14-2024 End: 08-14-2024 ambulatory Daron Benton Facility:[facility] Start: 06-19-2024 End: 06-19-2024 ambulatory Kevin Gonzalez Facility:[facility] Start: 06-19-2024 End: 06-19-2024 ambulatory Kevin Gonzalez Facility:[facility] Start: 05-21-2024 End: 05-21-2024 ambulatory Daron Benton Facility:[facility] Start: 02-29-2024 End: 02-29-[address] Daron Benton Work Phone: [facility] Work Phone: Start: 02-29-2024 End: 02-29-2024 Dr. Daron Benton Work Phone: [facility] Start: 02-25-2024 Dr. Daron Benton Work Phone: [facility] Work Phone: Start: 02-25-2024 Dr. Daron Benton Work Phone: [facility] Start: 02-24-2024 Dr. Daron Benton Work Phone: [facility] Work Phone: Start: 02-24-2024 End: 02-24-2024 Dr. Daron Benton Work Phone: [facility] Work Phone: Start: 02-23-2024 End: 02-23-2024 Dr. Daron Benton Work Phone: [facility] Work Phone: Start: 02-23-2024 Dr. Daron Benton Work Phone: [facility] Start: 02-23-2024 Dr. Daron Benton Work Phone: [facility] Work Phone: Start: 02-22-2024 Dr. Daron Benton Work Phone: [facility] Start: 02-22-2024 Dr. Daron Benton Work Phone: [facility] Work Phone: Start: 02-21-2024 Dr. Daron Benton Work Phone: [facility] Start: 02-21-2024 Dr. Daron Benton Work Phone: [facility] Work Phone: Start: 02-20-2024 Dr. Daron Benton Work Phone: [facility] Work Phone: Start: 02-19-2024 Dr. Daron Benton Work Phone: [facility] Start: 02-19-2024 End: 02-25-2024 Evaluation and management of inpatient Dr. Daron Benton Work Phone: [facility] Work Phone: Start: 02-19-2024 End: 02-25-2024 Dr. Daron Benton Work Phone: [facility] Work Phone: Start: 02-11-2024 Ankit Main MD Work Phone: [facility] Comment on above: Multiple sclerosis ( HCC) Start: 01-18-2024 End: 01-18-2024 Emergency department patient visit Dr. Daron Benton Work Phone: [facility] Work Phone: Start: 01-18-2024 End: 01-18-2024 Dr. Daron Benton Work Phone: [facility] Work Phone: Start: 01-18-2024 End: 01-18-[address] Daron Benton Work Phone: [facility] Work Phone: Start: 01-18-2024 End: 01-18-2024 Dr. Daron Benton Work Phone: [facility] Start: 01-11-2024 End: 01-11-2024 Emergency department patient visit Dr. Daron Benton Work Phone: [facility] Work Phone: Start: 01-11-2024 End: 01-11-2024 Dr. Daron Benton Work Phone: [facility] Work Phone: Start: 01-08-2024 Dr. Daron Benton Work Phone: [facility] Work Phone: Start: 12-21-2023 End: 12-21-2023 Dr. Daron Benton Work Phone: [facility]Laboratory Work Phone: Start: 12-21-2023 End: 12-21-2023 Dr. Daron Benton Work Phone: [facility] Work Phone: Start: 12-14-2023 End: 12-14-2023 Office outpatient visit 40 minutes Lizz Lynn APRN - INFORMATION CLERK CASHIER Work Phone: [facility] Comment on above: Multiple sclerosis ( HCC) (Primary Dx); Dizziness; Imbalance; Vision disturbance Start: 12-07-2023 Dr. Daron Benton Work Phone: [facility] Work Phone: Start: 12-06-2023 Dr. Daron Benton Work Phone: [facility] Work Phone: Start: 12-05-2023 Dr. Daron Benton Work Phone: [facility] Work Phone: Start: 12-05-2023 Dr. Daron Benton Work Phone: [facility] Start: 12-04-2023 Dr. Daron Benton Work Phone: [facility] Work Phone: Start: 12-04-2023 Dr. Daron Benton Work Phone: [facility] Start: 12-03-2023 Dr. Daron Benton Work Phone: [facility] Work Phone: Start: 12-02-2023 End: 12-07-2023 Evaluation and management of inpatient Dr. Daron Benton Work Phone: [facility] Work Phone: Start: 12-02-2023 End: 12-07-2023 Dr. Daron Benton Work Phone: [facility] Work Phone: Start: 11-27-2023 End: 11-27-2023 Emergency department patient visit Dr. Daron Benton Work Phone: [facility] Work Phone: Start: 11-27-2023 End: 11-27-2023 Dr. Daron Benton Work Phone: [facility] Work Phone: Start: 11-26-2023 End: 11-26-2023 Emergency department patient visit Dr. Daron Benton Work Phone: [facility] Work Phone: Start: 11-26-2023 End: 11-26-2023 Dr. Daron Benton Work Phone: [facility] Work Phone: Start: 11-21-2023 Non-patient / Non-visit Dr. Alex Benton Work Phone: [facility] Work Phone: Start: 11-21-2023 Dr. Daron Benton Work Phone: [facility] Work Phone: Start: 11-20-2023 Non-patient / Non-visit Dr. Alex Benton Work Phone: [facility] Work Phone: Start: 11-20-2023 Dr. Daron Benton Work Phone: [facility] Work Phone: Start: 11-19-2023 Non-patient / Non-visit Dr. Alex Benton Work Phone: [facility] Start: 11-19-2023 Dr. Daron Benton Work Phone: [facility] Start: 11-18-2023 End: 11-21-2023 Evaluation and management of inpatient Dr. Daron Benton Work Phone: [facility] Work Phone: Start: 11-18-2023 End: 11-21-2023 Dr. Daron Benton Work Phone: [facility] Work Phone: Start: 11-16-2023 Non-patient / Non-visit Dr. Alex Benton Work Phone: [facility] Work Phone: Start: 11-16-2023 Dr. Daron Benton Work Phone: [facility] Work Phone: Start: 11-15-2023 End: 11-16-2023 Evaluation and management of inpatient Dr. Daron Benton Work Phone: [facility] Work Phone: Start: 11-15-2023 End: 11-16-2023 Dr. Daron Benton Work Phone: [facility] Work Phone: Start: 11-02-2023 End: 11-02-[address] Daron Benton Work Phone: [facility] Work Phone: Start: 11-02-2023 End: 11-02-2023 Dr. Daron Benton Work Phone: [facility] Work Phone: Start: 10-26-2023 End: 10-26-2023 ambulatory TYE BARNETT MD Facility:A Start: 10-22-2023 End: 10-22-[address] Daron Benton Work Phone: [facility] Work Phone: Start: 10-22-2023 End: 10-22-[address] [facility] Start: 10-22-2023 End: 10-22-2023 Dr. D[facility] Work [facility] Start: 10-22-2023 End: 10-22-[address] Daron Benton Work Phone: [facility] Work Phone: Start: 10-22-2023 End: 10-22-2023 Dr. Daron Benton Work Phone: [facility] Work Phone: Start: 10-05-2023 End: 10-05-2023 Office outpatient visit 40 minutes Kristopher Main MD Work Phone: [facility] Comment on above: Multiple sclerosis ( HCC) (Primary Dx); Cerebrovascular disease, unspecified; Primary hypertension Start: 10-05-2023 Telephone encounter Kristopher baez MD Work Phone: [facility] Comment on above: Orders Start: 10-05-2023 End: 10-05-2023 Emergency department patient visit Dr. Daron Benton Work Phone: [facility] Work Phone: Start: 10-05-2023 End: 10-05-2023 Dr. Daron Benton Work Phone: [facility] Work Phone: Start: 09-04-2023 End: 09-04-[address] Daron Benton Work Phone: [facility] Work Phone: Start: 09-04-2023 End: 09-04-2023 Dr. Daron Benton Work Phone: [facility] Work Phone: Start: 09-04-2023 End: 09-04-[address] Daron Benton Work Phone: [facility] Work Phone: Start: 09-04-2023 End: 09-04-[address] [facility] Start: 09-04-2023 End: 09-04-2023 Dr. D[facility] Start: 08-21-2023 End: 08-21-[address] Daron Benton Work Phone: [facility] Start: 08-21-2023 End: 08-21-2023 Dr. Daron Benton Work Phone: [facility] Start: 07-26-2023 End: 07-26-[address] Daron Benton Work Phone: [facility] Work Phone: Start: 07-26-2023 End: 07-26-[address] [facility] Start: 06-15-2023 Refill Kristopher Main MD Work Phone: [facility] Comment on above: Multiple sclerosis ( HCC) Start: 06-04-2023 Telephone encounter Kristopher baez MD Work Phone: [facility] Comment on above: Med Refill Start: 05-24-2023 End: 05-24-[address] Daron Benton Work Phone: [facility] Work Phone: Start: 05-10-2023 Refill Kristopher Main MD Work Phone: [facility] Start: 04-26-2023 End: 04-26-[address] Daron Benton Work Phone: [facility] Work Phone: Start: 04-26-2023 End: 04-26-[address] Daron Benton Work Phone: [facility] Start: 04-25-2023 End: 04-25-[address] Daron Benton Work Phone: [facility] Start: 04-14-2023 End: 04-14-[address] Daron Benton Work Phone: [facility] Work Phone: Start: 04-14-2023 End: 04-14-[address] Daron Benton Work Phone: [facility] Start: 04-10-2023 End: 04-10-[address] Daron Benton Work Phone: [facility] Work Phone: Start: 04-10-2023 End: 04-10-[address] Daron Benton Work Phone: [facility]-Nuclear Medicine, [facility] Start: 04-08-2023 End: 04-08-2023 Emergency department patient visit Dr. Daron Benton Work Phone: [facility] Start: 04-02-2023 End: 04-02-[address] Daron Benton Work Phone: [facility] Start: 03-31-2023 End: 03-31-2023 Emergency department patient visit Dr. Daron Benton Work Phone: [facility] Start: 03-20-2023 End: 03-20-[address] Daron Benton Work Phone: [facility] Work Phone: Start: 03-20-2023 End: 03-20-[address] Daron Benton Work Phone: [facility] Start: 03-16-2023 End: 03-16-2023 Emergency department patient visit Dr. Daron Benton Work Phone: [facility] Start: 02-01-2023 End: 02-01-[address] Daron Benton Work Phone: [facility] Work Phone: Start: 02-01-2023 End: 02-01-[address] Daron Benton Work Phone: [facility]-Outpatient Bone Densitometry Start: 01-22-2023 End: 01-22-[address] Daron Benton Work Phone: [facility] Start: 12-27-2022 End: 12-27-[address] Daron Benton Work Phone: [facility] Start: 12-20-2022 End: 12-20-[address] Daron Benton Work Phone: [facility] Start: 12-13-2022 End: 12-13-[address] Daron Benton Work Phone: [facility] Start: 12-04-2022 End: 12-04-[address] Daron Benton Work Phone: [facility] Start: 11-24-2022 End: 11-24-2022 Emergency department patient visit Dr. Daron Benton Work Phone: [facility] Start: 11-21-2022 Non-patient / Non-visit Dr. Alex Benton Work Phone: [facility] Start: 11-21-2022 End: 11-21-[address] Daron Benton Work Phone: [facility] Work Phone: Start: 11-21-2022 End: 11-21-[address] [facility] Start: 11-09-2022 End: 11-09-2022 SAME DAY STAY TYE BARNETT MD [facility] Start: 10-26-2022 End: 10-26-[address] Daron Benton Work Phone: [facility] Start: 10-20-2022 End: 10-20-[address] Daron Benton Work Phone: [facility] Start: 10-09-2022 End: 10-09-[address] Daron Benton Work Phone: [facility] Start: 09-26-2022 End: 09-26-2022 ambulatory [facility] Work Phone: Start: 09-26-2022 End: 09-26-2022 [facility] Start: 09-03-2022 Transcribe Orders Kristopher olson MD Work Phone: [facility] [place] Comment on above: Other specified symp toms and signs involving the circulatory and respiratory systems (Primary Dx); Cerebrovascular disease, unspecified Start: 08-23-2022 End: 08-23-[address] Daron Benton Work Phone: [facility] Work Phone: Start: 08-23-2022 End: 08-23-[address] Daron Benton Work Phone: [facility] Start: 05-16-2022 End: 05-16-[address] Daron Benton Work Phone: [facility] Start: 05-02-2022 End: 05-02-[address] Daron Benton Work Phone: [facility] Start: 02-22-2022 End: 02-22-[address] Daron Benton Work Phone: [facility] Start: 02-20-2022 End: 02-20-2022 Emergency department patient visit Dr. Daron Benton Work Phone: [facility] Start: 02-18-2022 End: 02-18-2022 Emergency department patient visit Dr. Daron Benton Work Phone: [facility] Start: 02-17-2022 End: 02-17-2022 Emergency department patient visit Dr. Daron Benton Work Phone: [facility] Start: 02-14-2022 End: 02-14-2022 Emergency department patient visit Dr. Daron Benton Work Phone: [facility] Start: 02-08-2022 End: 02-08-[address] Daron Benton Work Phone: [facility] Start: 01-23-2022 End: 01-23-2022 Emergency department patient visit Dr. Daron Benton Work Phone: [facility] Start: 01-18-2022 End: 01-18-2022 Admission to same day surgery center Dr. Daron Benton Work Phone: [facility]/Special Procedures Start: 11-17-[address] Daron Benton Work Phone: [facility]-Cat Scan, [facility] Start: 10-21-2021 End: 10-21-[address] Daron Benton Work Phone: [facility] Start: 08-11-[address] Daron Benton Work Phone: [facility] Start: 08-11-[address] Daron lin MD Work Phone: [facility] Start: 11-25-2020 End: 11-25-2020 Subsequent hospital visit by physician Xr [facility] Work Phone: Radiology Comment on above: Cough [R05] Start: 12-21-2017 End: 12-21-2017 Ambulatory YOGESH ONOFRE [facility] Procedures Date Procedure Procedure Detail Performing Clinician [...] Start: 04-22-2025 Platelet mean volume determination Dr. Marcelle Benton MD Work Phone: Start: 04-21-2025 Esophagogastroduodenoscopy [...] Mean corpuscular hemoglobin concentration determination Dr. Daron Bentno MD Work Phone: Start: 12-11-2024 Measurement of [...] contrast Dr. Daron Benton Work Phone: Start: 02-22-2024 Investigation of [...] 01-11-2024 CT cervical spine without contrast Dr. Macrelle Benton Work Phone: Start: 01-11-2024 CT of head without contrast Dr. Daron Scott Work Phone: Start: 01-11-2024 Plain chest X-ray Dr. Daron Benton Work Phone: Start: 12-05-2023 MRI of brain without contrast Dr. Daron Olson [facility] Work Phone: Start: 12-05-2023 CT of [...] Radionuclide whole body bone study Dr. Marcelle Benton Work Phone: Start: 04-08-2023 Plain chest X-ray [...] Radiologic exam chest 2 views Paloma Thompson [employer].INFORMATION CLERK CASHIER Work Phone: Start: 04-19-2016 Lipid 1996 panel - Serum or Plasma Kristopher Main MD Work Phone: Start: 01-20-2016 Colonoscopy Xr [place] Work Phone: Start: 12-08-2011 Lipid 1996 panel [...] DTaP/Tdap/Td Vaccines (3 - Td or Tdap) [facility] Start: 02-09-2031 Urine microalbumin profile DTaP,Tdap,Td Vaccine (3 - Td or Tdap) [facility] Start: 2029 RSV Vaccine (1 - 1-dose 75+ series) RSV Vaccine (1 - 1-dose 75+ series) [facility] Start: 07-20-2025 Influenza vaccination Influenza Vaccine (Season Ended) [facility] Start: 06-03-2025 End: 06-03-2025 Patient encounter procedure 06/03/2025 12:30 PM EDT Office Visit [facility] [address] [place] [address] Lizz Lynn, ANTWON - INFORMATION CLERK CASHIER [address] [place] [id number] [facility] Start: 04-22-2025 Patient discharge [facility] Start: 04-21-2025 [facility] Start: 04-20-2025 Insertion of nasogastric tube [facility] Start: 04-20-2025 [facility] Start: 04-20-2025 End: 04-20-2025 [facility] Start: 04-20-2025 Referral to service [facility] Start: 04-19-2025 Referral to gastroenterology service [facility] Start: 04-19-2025 Administration of blood product [facility] Start: 04-18-2025 Application of intermittent pneumatic compression device [facility] Start: 04-18-2025 Ambulation without limitation [facility] Start: 04-18-2025 Assessment of risk of venous thromboembolism [facility] Start: 04-18-2025 Insertion of catheter into peripheral vein [facility] Start: 04-18-2025 Providing care according to standard [facility] Start: 04-18-2025 [facility] Start: 04-18-2025 Following clinical pathway protocol [facility] Start: 04-18-2025 Verification routine [facility] Start: 04-18-2025 Admission procedure [facility] Start: 04-18-2025 Hospital admission, emergency, from emergency room, medical nature [facility] Start: 04-18-2025 End: 04-19-2025 [facility] Start: 04-18-2025 [facility] Start: 04-18-2025 Patient referral to dietitian [facility] Start: 04-17-2025 Emergency dept visit high severity&threat funcj [facility] Start: 04-11-2025 [facility] Start: 04-02-2025 [facility] Start: 03-04-2025 End: 03-04-2026 Cobalamin (Vitamin B12) [Mass/volume] in Serum or Plasma Vitamin B12 Lab Routine Mild cognitive impairment Deficiency of multiple nutrient elements Expected: 03/04/2025 (Approximate), Expires: 03/04/[address] [facility] Comment on above: Expected: 03/04/2025 (Approximate), Expi res: 03/04/2026 Start: 03-04-2025 End: 03-04-2026 Electroencephalogram EEG Neurology Routine Mild cognitive impairment Expected: 03/04/2025 (Approximate), Expires: 03/04/[address] [facility] Work Phone: Comment on above: Expected: 03/04/2025 (Approximate), Expi res: 03/04/2026 Start: 03-04-2025 End: 03-04-2026 MR Brain WO contrast MR brain wo contrast Imaging Routine Mild cognitive impairment Expected: 03/04/2025, Expires: 03/04/[address] [facility] Comment on above: Expected: 03/04/2025, Expires: Start: 03-04-2025 End: 03-04-2026 Thyrotropin [Units/volume] in Serum or Plasma TSH Lab Routine Mild cognitive impairment Fatigue, unspecified type Expected: 03/04/2025 (Approximate), Expires: 03/04/[address] [facility] Comment on above: Expected: 03/04/2025 (Approximate), Expi res: 03/04/2026 Start: 03-04-2025 End: 03-04-2026 Vitamin B1 ([facility]) Vitamin B1 ([facility]) Lab Routine Mild cognitive impairment Deficiency of multiple nutrient elements Expected: 03/04/2025 (Approximate), Expires: 03/04/2026 [facility] Comment on above: Expected: 03/04/2025 (Approximate), Expi res: 03/04/2026 Start: 03-04-2025 End: 03-04-2026 Vitamin B6 Vitamin B6 Lab Routine Mild cognitive impairment Deficiency of multiple nutrient elements Expected: 03/04/2025 (Approximate), Expires: 03/04/2026 [facility] Comment on above: Expected: 03/04/2025 (Approximate), Expi res: 03/04/2026 Start: 01-13-2025 Patient discharge [facility] Start: 01-11-2025 Following clinical pathway protocol [facility] Start: 01-11-2025 Assessment of risk of venous thromboembolism [facility] Start: 01-11-2025 Fall prevention [facility] Start: 01-11-2025 Inhalation therapy procedure [facility] Start: 01-11-2025 Insertion of catheter into peripheral vein [facility] Start: 01-11-2025 Introduction of urinary catheter [facility] Start: 01-11-2025 Measuring intake and output [facility] Start: 01-11-2025 Oxygen therapy [facility] Start: 01-11-2025 Providing care according to standard [facility] Start: 01-11-2025 Provision of activity privileges [facility] Start: 01-11-2025 Referral to dust sampler [facility] Start: 01-11-2025 Referral to occupational therapist [facility] Start: 01-11-2025 Referral to service [facility] Start: 01-11-2025 Tobacco use cessation education [facility] Start: 01-11-2025 [facility] Start: 01-11-2025 Patient referral to dietitian [facility] Start: 01-10-2025 Admission procedure [facility] Start: 12-17-2024 [facility] Start: 12-11-2024 Patient discharge [facility] Start: 12-10-2024 Cardiac monitoring [facility] Start: 12-10-2024 Notification of physician [facility] Start: 12-10-2024 Oxygen therapy [facility] Start: 12-10-2024 Patient discharge [facility] Start: 12-10-2024 Patient education [facility] Start: 12-10-2024 Provision of activity privileges [facility] Start: 12-10-2024 Pulse taking [facility] Start: 12-10-2024 Systemic arterial pressure monitoring [facility] Start: 12-10-2024 Taking patient vital signs [facility] Start: 12-10-2024 Vascular disease risk assessment [facility] Start: 12-10-2024 Vital signs measurements [facility] Start: 12-10-2024 Wound care [facility] Start: 12-10-2024 [facility] Start: 12-09-2024 Referral to dust sampler [facility] Start: 12-09-2024 Following clinical pathway protocol [facility] Start: 12-09-2024 Assessment of risk of venous thromboembolism [facility] Start: 12-09-2024 Insertion of catheter into peripheral vein [facility] Start: 12-09-2024 Measuring intake and output [facility] Start: 12-09-2024 Oxygen therapy [facility] Start: 12-09-2024 Providing care according to standard [facility] Start: 12-09-2024 Provision of activity privileges [facility] Start: 12-09-2024 Referral to occupational therapist [facility] Start: 12-09-2024 Referral to service [facility] Start: 12-09-2024 Tobacco use cessation education [facility] Start: 12-09-2024 [facility] Start: 12-09-2024 Admission procedure [facility] Start: 12-09-2024 Patient referral to dietitian [facility] Start: 12-08-2024 End: 12-08-2024 Patient encounter procedure 12/08/2024 11:30 AM EST Office Visit [facility] [address] [place] [address] Mamta Wood APRN - CNP [address] [place] [address] [facility] Start: 11-19-2024 Medicare Advantage Annual Wellness Visit Medicare Advantage Annual Wellness Visit [facility] Start: 07-20-2024 Covid-19 Vaccine ( season) Covid-19 Vaccine ( season) [facility] Start: 07-20-2024 COVID-19 Vaccine ( season) COVID-19 Vaccine ( season) [facility] Start: 07-20-2024 Influenza vaccination Influenza Vaccine (#1) [facility] Start: 02-25-2024 Patient discharge [facility] Start: 02-23-2024 End: 02-24-2024 [facility] Start: 02-22-2024 End: 02-22-2024 Administration of blood product [facility] Start: 02-22-2024 Transfusion of red blood cells [facility] Start: 02-22-2024 Referral to service [facility] Start: 02-22-2024 Blood chemistry [facility] Start: 02-22-2024 [facility] Start: 02-21-2024 Oxygen therapy [facility] Start: 02-21-2024 Blood chemistry [facility] Start: 02-21-2024 End: 02-22-2024 [facility] Start: 02-20-2024 Referral to occupational therapist [facility] Start: 02-20-2024 Referral to service [facility] Start: 02-20-2024 [facility] Start: 02-20-2024 Blood chemistry [facility] Start: 02-20-2024 End: 02-20-2024 [facility] Start: 02-19-2024 [facility] Start: 02-19-2024 Following clinical pathway protocol [facility] Start: 02-19-2024 Ambulation without limitation [facility] Start: 02-19-2024 Assessment of risk of venous thromboembolism [facility] Start: 02-19-2024 Elevation of head of bed [facility] Start: 02-19-2024 Inhalation therapy procedure [facility] Start: 02-19-2024 Insertion of catheter into peripheral vein [facility] Start: 02-19-2024 Measuring intake and output [facility] Start: 02-19-2024 Patient education [facility] Start: 02-19-2024 Providing care according to standard [facility] Start: 02-19-2024 Referral to gastroenterology service [facility] Start: 02-19-2024 End: 02-19-2024 [facility] Start: 02-19-2024 End: 02-19-2024 [facility] Start: 02-19-2024 Bacteria identified in Sputum by Culture [facility] Start: 02-19-2024 Legionella pneumophila Ag [Presence] in Urine [facility] Start: 02-19-2024 Streptococcus pneumoniae antigen assay [facility] Start: 02-19-2024 Verification routine [facility] Start: 02-19-2024 Admission procedure [facility] Start: 02-19-2024 End: 02-19-2024 Blood culture [facility] Start: 02-19-2024 [facility] Start: 02-19-2024 Administration of blood product [facility] Start: 02-19-2024 End: 02-20-2024 [facility] Start: 01-25-2024 End: 01-25-2024 Patient encounter procedure 01/25/2024 12:30 PM EST Office Visit [facility] [address] [place] [id number] Lizz Lynn APRN - INFORMATION CLERK CASHIER [address] [place] [address] [facility] Start: 01-18-2024 [facility] Start: 01-11-2024 [facility] Start: 01-11-2024 [facility] Start: 12-07-2023 Patient discharge [facility] Start: 12-07-2023 Referral to service [facility] Start: 12-06-2023 Care planning and problem solving actions [facility] Start: 12-05-2023 [facility] Start: 12-04-2023 End: 12-05-2023 [facility] Start: 12-04-2023 Following clinical pathway protocol [facility] Start: 12-03-2023 End: 12-04-2023 [facility] Start: 12-03-2023 Care planning and problem solving actions [facility] Start: 12-03-2023 Care planning and problem solving actions [facility] Start: 12-03-2023 Speech therapy assessment [facility] Start: 12-03-2023 Inhalation therapy procedure [facility] Start: 12-02-2023 [facility] Start: 12-02-2023 Providing care according to standard [facility] Start: 12-02-2023 Ambulation without limitation [facility] Start: 12-02-2023 Assessment of risk of venous thromboembolism [facility] Start: 12-02-2023 Insertion of catheter into peripheral vein [facility] Start: 12-02-2023 Measuring intake and output [facility] Start: 12-02-2023 Oxygen therapy [facility] Start: 12-02-2023 Providing care according to standard [facility] Start: 12-02-2023 Referral to occupational therapist [facility] Start: 12-02-2023 Referral to service [facility] Start: 12-02-2023 Telemedicine consultation with patient [facility] Start: 12-02-2023 [facility] Start: 12-02-2023 Blood culture [facility] Start: 12-02-2023 Verification routine [facility] Start: 12-02-2023 Hospital admission, emergency, from emergency room, medical nature [facility] Start: 12-02-2023 Admission procedure [facility] Start: 12-02-2023 [facility] Start: 12-02-2023 End: 12-02-2023 [facility] Start: 12-02-2023 [facility] Start: 11-27-2023 [facility] Start: 11-27-2023 Oxygen therapy [facility] Start: 11-27-2023 [facility] Start: 11-26-2023 [facility] Start: 11-21-2023 Patient discharge [facility] Start: 11-19-2023 Advance Directive Discussion Advance Directive Discussion [facility] Start: 11-19-2023 Medicare Advantage Annual Wellness Visit Medicare Advantage Annual Wellness Visit [facility] Start: 11-18-2023 Application of intermittent pneumatic compression device [facility] Start: 11-18-2023 Provision of activity privileges [facility] Start: 11-18-2023 Assessment of risk of venous thromboembolism [facility] Start: 11-18-2023 Fall prevention [facility] Start: 11-18-2023 Insertion of catheter into peripheral vein [facility] Start: 11-18-2023 Introduction of urinary catheter [facility] Start: 11-18-2023 Measuring intake and output [facility] Start: 11-18-2023 Providing care according to standard [facility] Start: 11-18-2023 Referral to occupational therapist [facility] Start: 11-18-2023 Referral to service [facility] Start: 11-18-2023 [facility] Start: 11-18-2023 Following clinical pathway protocol [facility] Start: 11-18-2023 Admission procedure [facility] Start: 11-16-2023 Patient discharge [facility] Start: 11-16-2023 Plain chest X-ray Chest 1 View (Portable) [facility] Start: 11-16-2023 XR Chest Single view [facility] Start: 11-16-2023 [facility] Start: 11-15-2023 Respiratory secretion precautions [facility] Start: 11-15-2023 Following clinical pathway protocol [facility] Start: 11-15-2023 Aspiration precautions [facility] Start: 11-15-2023 Assessment of risk of venous thromboembolism [facility] Start: 11-15-2023 Fall prevention [facility] Start: 11-15-2023 Incentive spirometry [facility] Start: 11-15-2023 Inhalation therapy procedure [facility] Start: 11-15-2023 Insertion of catheter into peripheral vein [facility] Start: 11-15-2023 Introduction of urinary catheter [facility] Start: 11-15-2023 Measuring intake and output [facility] Start: 11-15-2023 Oxygen therapy [facility] Start: 11-15-2023 Providing care according to standard [facility] Start: 11-15-2023 Provision of activity privileges [facility] Start: 11-15-2023 Referral to occupational therapist [facility] Start: 11-15-2023 Referral to service [facility] Start: 11-15-2023 [facility] Start: 11-15-2023 Verification routine [facility] Start: 11-15-2023 Admission procedure [facility] Start: 11-15-2023 Hospital admission, emergency, from emergency room, medical nature [facility] Start: 11-15-2023 [facility] Start: 11-15-2023 Consultation [facility] Start: 10-05-2023 [facility] Start: 10-05-2023 [facility] Start: 07-20-2023 COVID-19 Vaccine ( season) COVID-19 Vaccine ( season) [facility] Start: 07-20-2023 Influenza vaccination Influenza Vaccine (#1) [facility] Start: 04-08-2023 [facility] Start: 04-04-2023 End: 04-04-2023 Patient encounter procedure 04/04/2023 Office Visit Neurology Bavis, Kristopher R, MD [address] [place] [address] [facility] [place] Start: 03-31-2023 [facility] Start: 02-01-2023 Dual energy X-ray absorptiometry Dexa Bone Density Study [facility] Start: 02-20-2022 [facility] Work Phone: Start: 10-21-2021 Patient referral [facility] Work Phone: Start: 04-19-2021 Lipid panel Lipid Panel [facility] Start: 01-19-2021 Screening for malignant neoplasm of colon [facility] Start: 2019 Pneumococcal Vaccine: 65+ (2 of 2 - PCV) Pneumococcal Vaccine: 65+ (2 of 2 - PCV) [facility] Start: 2019 Screening for osteoporosis Bone Density Screening [facility] Start: 12-08-2016 Lipid panel Lipid Screening [facility] Start: 08-19-2016 Diabetes Screening Diabetes Screening [facility] Start: 2014 RSV Immunization aged 60 or older (1 - 1-dose 60+ series) RSV Immunization aged 60 or older (1 - 1-dose 60+ series) [facility] Start: 2014 RSV Immunization for Adults (1 - Risk 60-74 years 1-dose series) RSV Immunization for Adults (1 - Risk 60-74 years 1-dose series) [facility] Start: 08-26-2010 Screening for malignant neoplasm of breast Mammogram Screening [facility] Start: 08-19-2009 Pneumococcal Vaccine: 50+ Years (2 of 2 - PCV) Pneumococcal Vaccine: 50+ Years (2 of 2 - PCV) [facility] Start: 08-19-2009 Pneumococcal Vaccine: 65+ Years (2 - PCV) Pneumococcal Vaccine: 65+ Years (2 - PCV) [facility] Start: 08-19-2009 Pneumococcal Vaccine: 65+ Years (2 of 2 - PCV) Pneumococcal Vaccine: 65+ Years (2 of 2 - PCV) [facility] Start: 2004 Shingrix Vaccine (1 of 2) Shingrix Vaccine (1 of 2) [facility] Start: 2004 Zoster Vaccines (1 of 2) Zoster Vaccines (1 of 2) [facility] Start: 1999 Screening for malignant neoplasm of colon [facility] Start: 1994 Screening for malignant neoplasm of breast Mammogram [facility] Start: 1972 Anxiety Screening Anxiety Screening [facility] Start: 1972 Depression Screening Depression Screening [facility] Start: 1972 Diabetes mellitus screening Diabetes Screening [facility] Start: 1972 Hepatitis C screening Hepatitis C Screening [facility] Start: 1966 Depression Monitoring Depression Monitoring [facility] Start: 1966 Depression Screening Depression Screening [facility] Start: 1954 Hepatitis B Vaccines (1 of 3 - 3-dose series) Hepatitis B Vaccines (1 of 3 - 3-dose series) [facility] Start: 1954 Lipid panel Lipid Panel [facility] Start: 1954 Medicare Advantage Annual Wellness Visit (AWV) Medicare Advantage Annual Wellness Visit (AWV) [facility] Start: 1954 Screening for malignant neoplasm of colon [facility] Start: 1954 Screening for osteoporosis Bone Density Scan [facility] Start: 1954 Thyroid stimulating hormone measurement TSH Level [facility] Alanine aminotransfe rase [Enzymatic activity/volume] in Serum or Plasma [facility] Alanine aminotransfe rase [Enzymatic activity/volume] in Serum or Plasma [facility] Alanine aminotransfe rase [Enzymatic activity/volume] in Serum or Plasma [facility] Albumin [Mass/volume ] in Serum or Plasma [facility] Albumin [Mass/volume ] in Serum or Plasma [facility] Albumin [Mass/volume ] in Serum or Plasma [facility] Albumin/Globulin [Ma ss Ratio] in Serum or Plasma by Electrophoresis [facility] Work Phone: Albumin/Globulin [Ma ss Ratio] in Serum or Plasma by Electrophoresis [facility] Alkaline phosphatase [Enzymatic activity/volume] in Serum or Plasma [facility] Alkaline phosphatase [Enzymatic activity/volume] in Serum or Plasma [facility] Alkaline phosphatase [Enzymatic activity/volume] in Serum or Plasma [facility] Alpha 1 antitrypsin [Mass/volume] in Serum or Plasma [facility] Anion gap measurement [facility] Anion gap measurement [facility] Anion gap measurement [facility] Aspartate aminotrans ferase [Enzymatic activity/volume] in Serum or Plasma [facility] Aspartate aminotrans ferase [Enzymatic activity/volume] in Serum or Plasma [facility] Aspartate aminotrans ferase [Enzymatic activity/volume] in Serum or Plasma [facility] Bacteria identified in Urine by Culture Urine Culture [facility] Bilirubin measurement, urine [facility] Bilirubin measurement, urine [facility] Bilirubin, total measurement [facility] Bilirubin, total measurement [facility] Bilirubin, total measurement [facility] BUN/Creatinine ratio [facility] BUN/Creatinine ratio [facility] BUN/Creatinine ratio [facility] Calcium [Mass/volume ] in Serum or Plasma [facility] Calcium [Mass/volume ] in Serum or Plasma [facility] Calcium [Mass/volume ] in Serum or Plasma [facility] Carbon dioxide, tota l [Moles/volume] in Serum or Plasma [facility] Carbon dioxide, tota l [Moles/volume] in Serum or Plasma [facility] Carbon dioxide, tota l [Moles/volume] in Serum or Plasma [facility] Cardiac event recording [facility] CBC W Auto Different ial panel - Blood [facility] Chloride [Moles/volu me] in Serum or Plasma [facility] Chloride [Moles/volu me] in Serum or Plasma [facility] Chloride [Moles/volu me] in Serum or Plasma [facility] Creatinine [Moles/vo lume] in Serum or Plasma [facility] Creatinine [Moles/vo lume] in Serum or Plasma [facility] Creatinine [Moles/vo lume] in Serum or Plasma [facility] Electrophoresis: albumin [facility] Work Phone: Electrophoresis: albumin [facility] Electrophoresis: [id number] [facility] Work Phone: Electrophoresis: [id number] [facility] Electrophoresis: [id number] [facility] Work Phone: Electrophoresis: [id number] [facility] Electrophoresis: francisco j ma globulin [facility] Work Phone: Electrophoresis: francisco j ma globulin [facility] Globulin measurement [facility] Work Phone: Globulin measurement [facility] Glucose [Mass/volume ] in Serum or Plasma [facility] Glucose [Mass/volume ] in Serum or Plasma [facility] Glucose [Mass/volume ] in Serum or Plasma [facility] Hematocrit [Volume F raction] of Blood [facility] Hematocrit [Volume F raction] of Blood [facility] Hematocrit [Volume F raction] of Blood [facility] Hematocrit [Volume F raction] of Blood [facility] Hemoglobin [Mass/vol ume] in Blood [facility] Hemoglobin [Mass/vol ume] in Blood [facility] Hemoglobin [Mass/vol ume] in Blood [facility] Hemoglobin [Mass/vol ume] in Blood [facility] Hemoglobin [Presence ] in Urine [facility] Hemoglobin [Presence ] in Urine [facility] Measurement of keton es in urine using dipstick [facility] Measurement of keton es in urine using dipstick [facility] Measurement of renal function [facility] Measurement of renal function [facility] Measurement of renal function [facility] Microscopic urinalysis [facility] Microscopic urinalysis [facility] NM Heart Views W str ess and W radionuclide IV [facility] Organism count, micr oscopic method [facility] Patient Education [facility] Work Phone: Patient referral [facility] Work Phone: pH of Urine [facility] pH of Urine [facility] Potassium [Moles/vol ume] in Serum or Plasma [facility] Potassium [Moles/vol ume] in Serum or Plasma [facility] Potassium [Moles/vol ume] in Serum or Plasma [facility] Protein electrophore sis panel - Serum or Plasma [facility] Work Phone: Protein electrophore sis panel - Serum or Plasma [facility] Serum protein electrophoresis [facility] Work Phone: Serum protein electrophoresis [facility] Sodium [Moles/volume ] in Serum or Plasma [facility] Sodium [Moles/volume ] in Serum or Plasma [facility] Sodium [Moles/volume ] in Serum or Plasma [facility] Specific gravity of Urine [facility] Specific gravity of Urine [facility] Total globulins measurement [facility] Work Phone: Total globulins measurement [facility] Total protein measurement [facility] Total protein measurement [facility] Total protein measurement [facility] Troponin T.cardiac [Mass/volume] in Serum or Plasma by High sensitivity method [facility] Urea nitrogen [Mass/ volume] in Serum or Plasma [facility] Urea nitrogen [Mass/ volume] in Serum or Plasma [facility] Urea nitrogen [Mass/ volume] in Serum or Plasma [facility] Urinalysis, blood, qualitative [facility] Urine blood test [facility] Urine dipstick for glucose W [facility] Urine dipstick for glucose [facility] Urine dipstick for l eukocyte esterase [facility] Urine dipstick for l eukocyte esterase [facility] Urine dipstick for nitrite W [facility] Urine dipstick for nitrite [facility] Urine dipstick for protein W [facility] Urine dipstick for protein W [facility] Urine examination [facility] Urine examination [facility] Urine microscopy: ep ithelial cells [facility] Urine microscopy: ep ithelial cells [facility] Urine Microscopy: white cells [facility] Urobilinogen [Presen ce] in Urine [facility] Urobilinogen [Presen ce] in Urine [facility] US Heart Transesophageal [facility] White blood cell count [facility] Immunizations Immunization Date Immunization Notes Care Provider [facility] 08-19-2024 influenza, high dose seasonal, preservative-free Dr. Daron Benton MD Work Phone: [facility] 08-17-2023 Influenza High-Dose Quadrivalent Dr. Daron Benton Work Phone: [facility] 08-17-2023 influenza virus vacc ine, unspecified formulation Mamta Wood APRN - INFORMATION CLERK CASHIER Work Phone: [facility] 09-16-2022 Covid Pfizer Bivalen t Booster Dr. Daron Benton Work Phone: [facility] 09-16-2022 Influenza High-Dose Quadrivalent Dr. Daron Benton Work Phone: [facility] 09-16-2022 influenza virus vacc ine, unspecified formulation Kristopher Main MD Work Phone: [facility] 05-17-2022 Covid (Moderna) Dr. Daron Scott Work Phone: [facility] 09-21-2021 Covid (Moderna) Dr. Daron Scott Work Phone: [facility] 02-09-2021 tetanus toxoid, redu maya diphtheria toxoid, and acellular pertussis vaccine, adsorbed Dr. Daron Benton Work Phone: [facility] 01-13-2021 Covid (Moderna) Dr. Daron Scott Work Phone: [facility] 12-16-2020 Covid (Moderna) Dr. Daron Scott Work Phone: [facility] 08-13-2019 Influenza, high dose seasonal Dr. Daron Benton MD Work Phone: [facility] 08-13-2019 influenza, high dose seasonal, preservative-free Dr. Daron Benton Work Phone: [facility] 08-13-2019 influenza virus vacc ine, unspecified formulation [facility] [place] Work Phone: [facility] 08-20-2018 influenza, injectabl e, quadrivalent, preservative free Dr. Daron Benton Work Phone: [facility] 07-20-2011 influenza virus vacc ine, unspecified formulation [facility] [place] Work Phone: [facility] 09-01-2009 influenza virus vacc ine, unspecified formulation [facility] [place] Work Phone: [facility] 09-18-2008 influenza virus vacc ine, unspecified formulation [facility] [place] Work Phone: [facility] 08-19-2008 pneumococcal polysaccharide vaccine, 23 valent [facility] [place] Work Phone: [facility] 08-23-2006 diphtheria and tetan us toxoids, adsorbed for pediatric use [facility] [place] Work Phone: [facility] Payers Date Payer Category Payer Self-pay [id number] 2022 Medicare O [employer] MEDICARE [id number] 2019 Medicaid [facility] [id number] 2019-Present [phone] [address] [place] [address] Medicaid [id number] 2017 Medicare [id number] 2016 Medicare [id number] 2016 Unknown [id number] 1954 Unknown [id number] 2.16.840.1.923803.3.579.2.627 Unknown [id number] 2.16.840.1.905105.3.579.2.462 Unknown [id number] 2.16.840.1.444613.3.579.2.462 Unknown [id number] 2.16.840.1.945478.3.579.2.462 Unknown [id number] 2.16.840.1.593416.3.579.2.462 Unknown [id number] 2.16.840.1.595578.3.579.2.462 Unknown [id number] 2.16840.1.508423.3.579.2.462 Unknown [id number] 2.16840.1.241064.3.579.2.462 Unknown [id number] 2.840.1.738843.3.579.2.462 Unknown [id number] 2.840.1.249518.3.579.2.462 Unknown [id number] 2.840.1.605602.3.579.2.462 Unknown [id number] 2.840.1.300273.3.579.2.462 Unknown [id number] 2.840.1.450210.3.579.2.462 Unknown [id number] 2.840.1.885370.3.579.2.462 Unknown [id number] 2.840.1.095337.3.579.2.462 Unknown [id number] 2.840.1.623476.3.579.2.462 Unknown [id number] 2.840.1.765462.3.579.2.462 Unknown [id number] 2.840.1.392239.3.579.2.462 Unknown [id number] .840.1.976162.3.579.2.462 Unknown [id number] .840.1.335163.3.579.2.462 Unknown [id number] 2.840.1.889961.3.579.2.462 Unknown [id number] 2.840.1.706933.3.579.2.462 Unknown [id number] 2.840.1.662410.3.579.2.462 Unknown [id number] 2.16.840.1.816849.3.579.2.462 Unknown [id number] 2.16.840.1.320454.3.579.2.462 Unknown [id number] 2.16.840.1.174766.3.579.2.462 Unknown [id number] 2.16.840.1.105732.3.579.2.462 Unknown [id number] 2.16.840.1.092484.3.579.2.462 Unknown [id number] 2.16.840.1.734444.3.579.2.462 Unknown [id number] 2.16.840.1.663116.3.579.2.462 Unknown [id number] 2.16.840.1.234046.3.579.2.462 Unknown [id number] 2.16.840.1.206532.3.579.2.462 Unknown [id number] 2.16.840.1.512021.3.579.2.462 Unknown [id number] 2.16.840.1.819483.3.579.2.462 Unknown [id number] 2.16.840.1.670588.3.579.2.462 Unknown [id number] 2.16.840.1.052785.3.579.2.462 Unknown [id number] 2.16.840.1.994586.3.579.2.462 Unknown [id number] 2.16.840.1.144581.3.579.2.462 Unknown [id number] 2.16.840.1.363206.3.579.2.462 Unknown [id number] 2.16.840.1.743873.3.579.2.462 Unknown [id number] 2.16.840.1.595205.3.579.2.462 Unknown [id number] 2.16.840.1.627753.3.579.2.462 Unknown [id number] 2.16840.1.603766.3.579.2.462 Unknown [id number] 2.16840.1.986388.3.579.2.462 Unknown [id number] 2.16.840.1.136234.3.579.2.462 Unknown [id number] Unknown [id number] Unknown [id number] Unknown [id number] Unknown [id number] Unknown [id number] Unknown [id number] Social History Date Type Detail Facility Start: 02-17-2022 End: 02-21-2024 Tobacco smoking status ILIS Unknown if ever smoked [facility] Start: 01-18-2020 Occasional [facility] Start: 01-18-2020 None [facility] Start: 01-29-2020 Alone [facility] Start: 02-09-2021 Cigarettes [facility] Start: 1955 Sex Assigned At Female W [facility] Start: 12-08-2016 End: 05-11-2025 Tobacco smoking status ILIS Smokes tobacco daily [facility] History of tobacco use Cigarette Smoker [facility] Start: 04-04-2023 End: 04-08-2025 Alcohol intake Ex-drinker (finding) [facility] Start: 04-04-2023 End: 04-08-2025 History of Social function [facility] Start: 04-04-2023 End: 04-08-2025 Tobacco use panel [facility] Start: 1955 Sex Assigned At Not on file [facility] Start: 12-08-2016 End: 03-04-2025 Tobacco use and exposure Smokeless tobacco non-user [facility] Start: 11-25-2020 Alcoholic beverage intake Not Asked [facility] National Score (1-100), lower number is lower risk Not on file [facility] Start: 10-26-2020 End: 10-05-2022 Exposure to SARS-CoV-2 (event) Not sure [facility] Start: 06-19-2022 Sex Female (finding) [facility] Start: 04-02-2025 End: 04-20-2025 Tobacco smoking status NHIS Current Light tobacco smoker [facility] NEGATED: Highlighted row [facility] Medical Equipment Procedure Code Equipment Code Equipment Origin al Text Equipment Identifier Dates GDC aneurysm coil FDA Start: 02-03-2014 GDC aneurysm coil FDA Start: 02-03-2014 Protege GFS stent FDA Start: 08-25-2015 [id number]) [id number] FDA Start: 01-18-2022 GDC aneurysm coil FDA [...] Assessment Result Facility 04-22-2025 Functional status Ambulates [facility] Work Phone: 01-13-2025 Functional status Standby Assist [facility] Work Phone: 01-13-2025 Functional status Ambulates;Bathroom Priv ilege [facility] Work Phone: 12-11-2024 Functional status Bathroom Privilege [facility] Work Phone: 02-25-2024 Functional status Ambulates [facility] Work Phone: 12-07-2023 Functional status Ambulates;Chair [facility] Work Phone: 11-21-2023 Functional status Ambulates [facility] Work Phone: 11-16-2023 Functional status Ambulates [facility] Work Phone: 11-09-2022 Functional Status Ambulating in room [facility] 11-09-2022 Functional Status [facility] 11-09-2022 Functional Status Maintained [facility] Mental Status Date Assessment Result Facility 04-22-2025 Cognitive function Voice/Name;Touch/Shaki ng [facility] Work Phone: 04-18-2025 Cognitive function Level Of Cons ciousness Awake;Alert;Appropriate;Follow s Commands [facility] Work Phone: 04-02-2025 Cognitive function Awake;Appropr iate;Follows Commands;Drowsy [facility] Work Phone: 01-13-2025 Cognitive function Voice/Name [facility] Work Phone: 12-11-2024 Cognitive function Voice/Name [facility] Work Phone: 02-25-2024 Cognitive function Voice/Name [facility] Work Phone: 02-19-2024 Cognitive function Awake;Alert;A ppropriate;Follow s Commands [facility] Work Phone: 12-07-2023 Cognitive function Voice/Name [facility] Work Phone: 12-02-2023 Cognitive function Awake;Drowsy [facility] Work Phone: 11-27-2023 Cognitive function Voice/Name [facility] Work Phone: 11-21-2023 Cognitive function Voice/Name [facility] Work Phone: 11-18-2023 Cognitive function Level Of Cons ciousness Awake;Alert;Appropriate;Follow s Commands [facility] Work Phone: 11-16-2023 Cognitive function Voice/Name [facility] Work Phone: 11-15-2023 Cognitive function Level Of Cons ciousness Awake;Alert;Appropriate;Follow s Commands [facility] Work Phone: 10-05-2023 Cognitive function Awake;Alert;A ppropriate;Follow s Commands [facility] Work Phone: 04-08-2023 Cognitive function Level Of Cons ciousness Awake;Alert;Appropriate [facility] Work Phone: 03-16-2023 Cognitive function Level Of Cons ciousness Awake;Alert;Appropriate;Follow s Commands [facility] Work Phone: 11-09-2022 Mental Status Orientation Oriented x 4 [facility] 11-09-2022 [facility] 02-18-2022 Cognitive function Voice/Name [facility] Work Phone: Clinical Notes 11-25-2020 to 05-15-2025 Telephone Encounter - Maeve Jacobson - 05/06/2025 1:48 PM EDTTelephone Encounter - Maeve Jacobson - 05/06/2025 1:48 PM EDTTelephone Encounter - Madelin Olvera - 05/05/2025 2:39 PM EDT Note Date & Type Note Facility 05-15-2025 Radiology Diagnos tic study note [facility] 05-06-2025 Telephone encount er Note Faxed New Auth to [facility] @ [phone], Valid 05/06/25 Thru 07/05/25 Brain MRI wo Contrast. [facility] 05-06-2025 Miscellaneous Notes Formattin g of this note might be different from the original. Faxed New Auth to [facility] @ [phone], Valid 05/06/25 Thru 07/05/25 Brain MRI wo Contrast. Name of caller: [facility] Contact phone number: [phone] Relationship to Patient: Imaging Provider: Robert Practice: neuro Chief Complaint/Reason for Call: Viki states patients prior auth is expiring and will need a new one for patient schedule MRI on 05/20 @130 fax # [phone]. documented in this encounter [facility] 05-05-2025 Telephone encount er Note Name of caller: [facility] Contact phone number: [phone] Relationship to Patient: Imaging Provider: Robert Practice: neuro Chief Complaint/Reason for Call: Viki states patients prior auth is expiring and will need a new one for patient schedule MRI on 05/20 @130 fax # [phone]. [facility] 04-24-2025 Telephone encount er Note Baclofen 20mg sent to Sp in [place]. [facility] 04-24-2025 Miscellaneous Notes Formattin g of this note might be different from the original. Baclofen 20mg sent to Sp in [place]. Name of caller: Angélica Contact phone number: [phone] Relationship to Patient: patient Provider: AURORA Lynn Practice: Neurology Chief Complaint/Reason for Call: Angélica advised that she just got out of the hospital, and she needs her Baclofen script sent in to her [facility] - [place], [place] - [address] [[id number]]. She does not use the [facility] any longer, and she is completely out. Best time of day caller can be reached: any Patient advised that office/PCP has 24-48 business hours to return their call: Yes documented in this encounter [facility] 04-24-2025 Telephone encount er Note Name of caller: Angélica Contact phone number: [phone] Relationship to Patient: patient Provider: AURORA Lynn Practice: Neurology Chief Complaint/Reason for Call: Angélica advised that she just got out of the hospital, and she needs her Baclofen script sent in to her [facility] [place], [place] - [address] [[id number]]. She does not use the [facility] any longer, and she is completely out. Best time of day caller can be reached: any Patient advised that office/PCP has 24-48 business hours to return their call: Yes [facility] 04-22-2025 Discharge summary Note Date/Time April 22, 2025 2:21pm [facility] Medical Records Department [address] [place] [address] Discharge Summary 04/22/25 1411 MR#: [id number] Acct: [id number] Name: ANGÉLICA YO Rep #:[id number] 9 : 1955 69 From: Roman Mckeon MD PCP: Dr. Daron Benton MD Status:ADM IN Location: [place] AB821-1 Providers Date of Admission: 04/18/25 Primary Care Physician: Dr. Daron Benton MD Consultations 04/19/25 08:12 Consult: Gastroenterology Routine Consulting Provider: [facility] Reason for Consult: GI Bleed EMERGENT [...] Health Service Charges/Coding Visit Charges Inpatient E&M: 20847 Disch Hosp >30min 04/22/25 1421 <Electronically signed by Roman Mckeon MD> Cosigner Signature (if applicable): CC: Dr. Roman Mckeon MD; Dr. Daron Benton MD~ Signed [facility] Work Phone: 1(676) 967-772106-04-2025 Consult note Author Benjamin Cm [facility] Note Date/Time April 22, 2025 1:30p m [facility] Medical Records Department [address] [place] [address] Anesthesia Postop Eval I 04/22/25 1329 MR#: [id number] Acct: [id number] Name: ANGÉLICA YO Rep #:[id number] 3 : 1955 69 From: Benjamin Cm PCP: Dr. Daron Benton MD Status:ADM IN Y Race: C Location: [place] MS305 -1 Anesthesia: Postop Eval I Current [...] Cm Cosigner Signature: Date CC: ~ Signed [facility] Work Phone: 1(272) 777-897006-04-2025 Progress note Author Kevin Gonzalez [facility] Note Date/Time April 22, 2025 12:31 pm [facility] Medical Records Department [address] [place] [address] Progress Note 04/22/25 1230 MR#: [id number] Acct: [id number] Name: ANGÉLICA YO Rep #:[id number] 2 : 1955 69 From: Kevin Gonzalez DO PCP: Dr. Daron Benton MD Status:ADM IN Location: [place] [address] Progress Note The patient underwent NG tube [...] ASA of 3. Visit Charges Inpatient E&M: 96148 Subs Hosp L2 04/22/25 1231 <Electronically signed by Kevin Gonzalez DO> Kevin Gonzalez DO Cosigner Signature (if applicable): CC: ~ Signed [facility] Work Phone: 1(528) 646-549006-04-2025 [facility]06-04-2025 Procedure [facility]06-04-2025 Procedure [facility]06-04-2025 Consult note Author Aime Covarrubias [facility] Note Date/Time April 22, 2025 11:17 am [facility] Medical Records Department [address] [place] [address] Pre-Anesthesia Evaluation 04/22/25 1116 MR#: [id number] Acct: [id number] Name: ANGÉLICA YO Rep #:[id number] 4 : 1955 69 From: Aime Covarrubias MD PCP: Dr. 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 Female HX of Motion Sickness HX of N/V After Surgery Non-Smoker Duration of Surgery greater than 60 minutes Number of Risk Factors PONV Score Height & Weight Height & Weight: Anesthesia: Height & Weight Height 5 ft 5 in 04/21/25 15:30 Weight: 45.7 kg 04/21/25 15:30 Body Mass Index (BMI) 16.7 04/21/25 15:30 Respiratory Assessment Respiratory Assessment - 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: Respiratory Tract Infection Hx - 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 Hx Respiratory Tract Infection No 02/24/24 23:50 STOP Sleep Apnea STOP Sleep Apnea - 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: STOP Sleep Apnea - 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 Hx Hypertension Yes 04/18/25 21:53 Hx Sleep [...] Tobacco Use History Tobacco Use History - 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: Tobacco Use History - 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 Tobacco Use Smoking Status Light Smoker (<10/day) 04/20/25 21:39 Hx Tobacco Use Yes 04/18/25 21:53 Years Smoking Packs Smoked per Day Smoking Cessation Date was within the last 15 years Hx Smoking Cessation Date Hx Smoking Cessation No 04/18/25 21:53 Counseling Hematologic Medial History Hematologic Hx - 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: 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 Hx of Blood Transfusion Yes 04/18/25 21:53 [...] confused, unrespo /Reproduction History /Reproductive History - 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: /Reproductive Hx- 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 Hx Now Gestational Age (in weeks): EDC: [...] mls @ 15 mls/hr 04/18/25 21:41 IV .[id number] PRN Saline Flush Sodium Chloride 250 mls @ 15 mls/hr 04/18/25 21:41 IV .[id number] PRN Additional IVPB Infusion Pantoprazole Sodium 40 mg/ 100 mls @ 330 mls/hr 04/18/25 21:57 04/22/25 09:55 Sodium Chloride IV 330 mls/hr Q24 VIMAL Administration Lactated Ringer's 1,000 mls @ 15 mls/hr 04/20/25 13:00 04/21/25 15:37 IV 15 mls/hr .Q48H VIMAL Administration Lactated Ringer's 1,000 mls @ 15 mls/hr 04/22/25 11:15 IV .Q48H VIMAL Ipratropium [place] 2 spray 04/19/25 07:17 Ipratropium [place] 0.06% Nasal [place] NASAL TID PRN allergy symptoms Levothyroxine Sodium [...] 10 ml UD PRN Administration SALINE FLUSH [facility] Medical History Hypertensive emergency NSTEMI, initial episode of care Emphysema of lung Smoking greater than 30 pack years New onset atrial fibrillation [place] (dyspnea on exertion) Atherosclerotic heart disease of [place] coronary artery without angina pectoris Cardiac murmur [...] Stomach morphine AdvReac Nausea Verified 04/18/25 18:19 Mbpplny-ZZL-DpU Reductase AdvReac Nausea Verified 04/18/25 18:19 Inhibitor (Yndfmek-Gzf-Ewo Reductase Inhibitor) Family History Mother Cancer CAD [...] diaphoretic 04/22/25 1117 <Electronically signed by Aime Cvoarrubias MD> Date _ Aime Covarrubias MD Cosigner Signature: Date CC: ~ Signed [facility] Work Phone: 1(769) 932-861806-04-2025 Progress note Author Roman Bowermarcelle [facility] Note Date/Time April 22, 2025 8:32a m [facility] Medical Records Department [address] [place] [address] Progress Note - Hospitalist 04/22/25 0713 MR#: [id number] Acct: [id number] Name: ANGÉLICA YO Rep #:[id number] 0 : 1955 69 From: Roman Mckeon MD PCP: Dr. Daron Benton MD Status:ADM IN Location: [place] [address]-1 Reason for Visit Reason for Visit: Diagnoses [...] pain regimen Charges/Coding Visit Charges Inpatient E&M: 10599 Subs Hosp L2 04/22/25 0832 <Electronically signed by Roman Mckeon MD> Cosigner Signature (if applicable): CC: ~ Signed [facility] Work Phone: 1(203) 600-350106-03-2025 Consult note Author Zaki Levin [facility] Note Date/Time April 21, 2025 5:01p m [facility] Medical Records Department [address] [place] [address] Anesthesia Postop Eval II 04/21/25 1700 MR#: [id number] Acct: [id number] Name: ANGÉLICA YO Rep #:[id number] 2 : 1955 69 From: Zaki Nicholas RNA PCP: Dr. Daron Benton MD Status:ADM IN Y Race: C Location: [place]3 MS305 -1 Anesthesia Postop Eval I Sum Postop Eval Completion status Anesthesia document: Postop Eval 1 completed: Yes Anesthesia Postop Eval I Summary Anesthesia Postop Eval I Summary: Anesthesia Postop Eval I: Assessment Summary Airway patent Yes 04/21/25 16:57 PRODUCT TRANSFER PUMPER.MDOT Spontaneous unlabored Yes 04/21/25 16:57 PRODUCT TRANSFER PUMPER.MDOT respirations Mental status Awake,Calm 04/21/25 16:57 PRODUCT TRANSFER PUMPER.MDOT nausea No 04/21/25 16:57 PRODUCT TRANSFER PUMPER.MDOT Vomiting No 04/21/25 16:57 PRODUCT TRANSFER PUMPER.MDOT Anesthesia Postop Eval I: Fluid Summary Crystalloid volume administer 100 04/21/25 16:57 PRODUCT TRANSFER PUMPER.MDOT (ml) Colloids volume administered ( ml) Blood Product volume administered (ml) Total IV fluid infused 100 04/21/25 16:57 PRODUCT TRANSFER PUMPER.MDOT Anesthesia Postop Eval I: Summary Notes Anesthesia Complication No 04/21/25 16:57 PRODUCT TRANSFER PUMPER.MDISAIAH Anesthesia Complication Comment: Post-operative progress note Anesthesia: Postop Eval II Evaluation Mental status: Awake and Calm Pain Level: 0 nausea: No Vomiting: No Complications Anesthesia Complication: No 04/21/25 1701 <Electronically signed by Zaki Levin CRNA> Date _ Zaki Levin CRNA Cosigner Signature: Date CC: ~ Signed [facility] Work Phone: 1(366) 376-100006-03-2025 Consult note Author Zaki Levin [facility] Note Date/Time April 21, 2025 4:57p [facility] Medical Records Department [address] [facility] [place] [address] Anesthesia Postop Eval I 04/21/25 1656 MR#: [id number] Acct: [id number] Name: ANGÉLICA YO Rep #:[id number] : 1955 69 From: Zaki JOINER [...] CRNA Cosigner Signature: Date CC: ~ Signed [facility] Work Phone: 1(794) 463-955106-03-2025 Progress note Author Kevin Friend [facility] Note Date/Time April 21, 2025 4:16p m [facility] Medical Records Department [address] [place] [address] Progress Note 04/21/25 161 MR#: [id number] Acct: [id number] Name: ANGÉLICA YO Rep #:[id number] : 1955 69 From: Kevin Gonzalez DO PCP: Dr. Daron Benton MD Status:ADM IN Location: [place] [address] Progress Note Patient is n.p.o. for EGD [...] prep is complete. Visit Charges Inpatient E&M: 51269 Subs Hosp L3 04/21/25 1616 <Electronically signed by Kevin Gonzalez DO> Kevin Gonzalez DO Cosigner Signature (if applicable): CC: ~ Signed [facility] Work Phone: 1(937) 327-940106-03-2025 Consult note Author Storm Gómez [facility] Note Date/Time April 21, 2025 3:54p [facility] Medical Records Department [address] [place] [address] Pre-Anesthesia Evaluation 04/21/25 1549 MR#: [id number] Acct: [id number] Name: ANGÉLICA YO Rep #:[id number] 7 : 1955 69 From: Storm Gómez MD PCP: Dr. 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 Female HX of Motion Sickness HX of N/V After Surgery Non-Smoker Duration of Surgery greater than 60 minutes Number of Risk Factors PONV Score Height & Weight Height & Weight: Anesthesia: Height & Weight Height 5 ft 5 in 04/21/25 15:30 Weight: 45.7 kg 04/21/25 15:30 Body Mass Index (BMI) 16.7 04/21/25 15:30 Respiratory Assessment Respiratory Assessment - 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: Respiratory Tract Infection Hx - 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 Hx Respiratory Tract Infection No 02/24/24 23:50 STOP Sleep Apnea STOP Sleep Apnea - 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: STOP Sleep Apnea - 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 Hx Hypertension Yes 04/18/25 21:53 Hx Sleep [...] Tobacco Use History Tobacco Use History - 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: Tobacco Use History - 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 Tobacco Use Smoking Status Light Smoker (<10/day) 04/20/25 21:39 Hx Tobacco Use Yes 04/18/25 21:53 Years Smoking Packs Smoked per Day Smoking Cessation Date was within the last 15 years Hx Smoking Cessation Date Hx Smoking Cessation No 04/18/25 21:53 Counseling Hematologic Medial History Hematologic Hx - 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: 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 Hx of Blood Transfusion Yes 04/18/25 21:53 [...] confused, unrespo /Reproduction History /Reproductive History - 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: /Reproductive Hx- 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 Hx Now Gestational Age (in weeks): EDC: [...] mls @ 15 mls/hr 04/18/25 21:41 IV .[id number] PRN Saline Flush Sodium Chloride 250 mls @ 15 mls/hr 04/18/25 21:41 IV .[id number] PRN Additional IVPB Infusion Pantoprazole Sodium 40 mg/ 100 mls @ 330 mls/hr 04/18/25 21:57 04/21/25 10:40 Sodium Chloride IV Infused Q24 VIMAL Infusion Lactated Ringer's 1,000 mls @ 15 mls/hr 04/20/25 13:00 04/21/25 15:37 IV 15 mls/hr .Q48H VIMAL Administration Ipratropium [place] 2 spray 04/19/25 07:17 Ipratropium [place] 0.06% Nasal [place] NASAL TID PRN allergy symptoms Levothyroxine Sodium 50 mcg 04/19/25 06:00 04/21/25 05:56 Levothyroxine 50 Mcg Tablet PO Not Given DAILY@0600 [facility] Nutritional Formula (Lactose Free) 120 ml 04/19/25 08:00 04/21/25 10:20 Ensure Clear 120 Ml Liquid PO Not Given TIDCM [facility] Oxycodone HCl 10 mg 04/19/25 07:19 04/21/25 [...] (dyspnea on exertion) Atherosclerotic heart disease of [place] coronary artery without angina pectoris Cardiac murmur [...] 81 mg tablet,delayed 81 mg PO BREAKFAST [facility] 12/11/24 03/19/25 Rx release #30 tabs amlodipine [...] Stomach morphine AdvReac Nausea Verified 04/18/25 18:19 Oqacirj-GTZ-UnO Reductase AdvReac Nausea Verified 04/18/25 18:19 Inhibitor (Layisyc-Xgx-Trq Reductase Inhibitor) Family History Mother Cancer CAD [...] no additional complaints, except as documented. 04/21/25 2257 <Electronically signed by Storm steiner MD> Date _ Storm Gómez MD Cosigner Signature: Date CC: ~ Signed [facility] Work Phone: 1(580) 834-348006-03-2025 Procedure [facility] 04-21-2025 Procedure [facility]06-03-2025 Progress note Author Roman Mckeon [facility] Note Date/Time April 21, 2025 8:22a [facility] Medical Records Department [address] [place] [address] Progress Note - Hospitalist 04/21/25 0727 MR#: [id number] Acct: [id number] Name: ANGÉLICA YO Rep #:[id number] 2 : 1955 69 From: Roman Mckeon MD PCP: Dr. Daron Benton MD Status:ADM IN Location: [place] [address] Reason for Visit Reason for Visit: Diagnoses [...] evidence for acute brain abnormality. Reading Location: [place] [address] Physical Exam Narrative GENERAL: cooperative HEENT: Atraumatic; [...] pain regimen Charges/Coding Visit Charges Inpatient E&M: 87847 Subs Hosp L2 04/21/25 0822 <Electronically signed by Roman Mckeon MD> Cosigner Signature (if applicable): CC: ~ Signed [facility] Work Phone: 1(730) 571-834806-03-2025 Progress note Author Sommer Resendiz [facility] Note Date/Time April 21, 2025 1:33a [facility] Medical Records Department [address] [place] [address] Progress Note - Hospitalist 04/21/2540 MR#: [id number] Acct: [id number] Name: ANGÉLICA YO Rep #:[id number] 3 : 1955 69 From: Sommer Resendiz MD PCP: Dr. Daron Benton MD Status:ADM IN Location: [place] GE335-6 Hospitalist Note Patient with unwitnessed mechanical fall, [...] Cosigner Signature (if applicable): cc: ~* Signed [facility] Work Phone: 1(768) 161-708906-03-2025 Radiology Diagnostic study [facility]06-02-2025 Consult note Author Aime Covarrubias [facility] Note Date/Time April 20, 2025 4:08p m [facility] Medical Records Department [address] [place] [address] Anesthesia Postop Eval II 04/20/25 1608 MR#: [id number] Acct: [id number] Name: ANGÉLICA YO Rep #:[id number] 0 : 1955 69 From: Aime Covarrubias MD PCP: Dr. Daron Benton MD Status:ADM IN Y Race: C Location: [address] Anesthesia Postop Eval I Sum Postop Eval Completion status Anesthesia document: Postop Eval 1 completed: Yes Anesthesia Postop Eval I Summary Anesthesia Postop Eval I Summary: Anesthesia Postop Eval I: Assessment Summary Airway patent Yes 04/20/25 13:53 PRODUCT TRANSFER PUMPER.JDEF Spontaneous unlabored Yes 04/20/25 13:53 PRODUCT TRANSFER PUMPER.JDEF respirations Mental status Awake 04/20/25 13:53 PRODUCT TRANSFER PUMPER.JDEF nausea No 04/20/25 13:53 PRODUCT TRANSFER PUMPER.JDEF Vomiting No 04/20/25 13:53 PRODUCT TRANSFER PUMPER.JDEF Anesthesia Postop Eval I: Fluid Summary Crystalloid volume administer 500 04/20/25 13:53 PRODUCT TRANSFER PUMPER.JDEF (ml) Colloids volume administered ( ml) Blood Product volume administered (ml) Total IV fluid infused 500 04/20/25 13:53 PRODUCT TRANSFER PUMPER.JDEF Anesthesia Postop Eval I: Summary Notes Anesthesia Complication No 04/20/25 13:53 PRODUCT TRANSFER PUMPER.JDEF Anesthesia Complication Comment: Post-operative progress note Anesthesia: Postop Eval II Evaluation Mental status: Awake Pain Level: 0 nausea: No Vomiting: No Complications Anesthesia Complication: No 04/20/25 1608 <Electronically signed by Aime Covarrubias MD> Date _ Aime Peterson Signature: Date CC: ~ Signed [facility] Work Phone: 1(994) 922-679306-02-2025 Consult note Author Meliza Rea [facility] Note Date/Time April 20, 2025 1:53p m [facility] Medical Records Department [address] [place] [address] Anesthesia Postop Eval I 04/20/25 1352 MR#: [id number] Acct: [id number] Name: ANGÉLICA YO Rep #:[id number] 8 : 1955 69 From: Meliza Rea CRNA PCP: Dr. Daron Benton MD Status:ADM IN Y Race: C Location: [place] [address] Anesthesia: Postop Eval I Current Vital Signs [...] 04/20/25 1353 <Electronically signed by Meliza mansfield PRODUCT TRANSFER PUMPER> Date _ Meliza Vanegasigner Signature: Date CC: ~ Signed [facility] Work Phone: 1(946) 815-812006-02-2025 Consult note Author Aime Covarrubias [facility] Note Date/Time April 20, 2025 1:21p m [facility] Medical Records Department [address] [place] [address] Pre-Anesthesia Evaluation 04/20/25 1313 MR#: [id number] Acct: [id number] Name: ANGÉLICA YO Rep #:[id number] 8 : 1955 69 From: Aime Covarrubias [...] Procedure(s): EGD 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: 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 Hx Hospitalization No 04/15/21 11:49 Any Problems [...] take am of surgery PONV PONV - 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: PONV - 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 Female HX of Motion Sickness HX of N/V After Surgery Non-Smoker Duration of Surgery greater than 60 minutes Number of Risk Factors PONV Score Height & Weight Height & Weight: Anesthesia: Height & Weight Height 5 ft 5 in 04/19/25 10:28 Weight: 45.7 kg 04/19/25 10:28 Body Mass Index (BMI) 16.7 04/18/25 21:50 Respiratory Assessment Respiratory Assessment - 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: Respiratory Tract Infection Hx - 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 Hx Respiratory Tract Infection No 02/24/24 23:50 STOP Sleep Apnea STOP Sleep Apnea - 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: STOP Sleep Apnea - 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 Hx Hypertension Yes 04/18/25 21:53 Hx Sleep [...] Tobacco Use History Tobacco Use History - 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: Tobacco Use History - 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 Tobacco Use Smoking Status Light Smoker (<10/day) 04/18/25 21:53 Hx Tobacco Use Yes 04/18/25 21:53 Years Smoking Packs Smoked per Day Smoking Cessation Date was within the last 15 years Hx Smoking Cessation Date Hx Smoking Cessation No 04/18/25 21:53 Counseling Hematologic Medial History Hematologic Hx - 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: 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 Hx of Blood Transfusion Yes 04/18/25 21:53 [...] confused, unrespo /Reproduction History /Reproductive History - 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: /Reproductive Hx- 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 Hx Now Gestational Age (in weeks): EDC: [...] mls @ 15 mls/hr 04/18/25 21:41 IV .[id number] PRN Saline Flush Sodium Chloride 250 mls @ 15 mls/hr 04/18/25 21:41 IV .Q42T35I PRN Additional IVPB Infusion Pantoprazole Sodium 40 mg/ 100 mls @ 330 mls/hr 04/18/25 21:57 04/20/25 09:59 Sodium Chloride IV 330 mls/hr Q24 VIMAL Administration Lactated Ringer's 1,000 mls @ 15 mls/hr 04/20/25 13:00 04/20/25 12:59 IV 15 mls/hr .Q48H VIMAL Administration Ipratropium [place] 2 spray 04/19/25 07:17 Ipratropium [place] 0.06% Nasal [place] NASAL TID PRN allergy symptoms Levothyroxine Sodium [...] (dyspnea on exertion) Atherosclerotic heart disease of sho[place] coronary artery without angina pectoris Cardiac murmur [...] Stomach morphine AdvReac Nausea Verified 04/18/25 18:19 Awwxtuw-WGS-HwW Reductase AdvReac Nausea Verified 04/18/25 18:19 Inhibitor (Nfciqud-Xai-Shv Reductase Inhibitor) Family History Mother Cancer CAD [...] MD Cosigner Signature: Date CC: ~ Signed [facility] Work Phone: 1(187) 915-208806-02-2025 Progress note Author Kevin Friend [facility] Note Date/Time April 20, 2025 1:19p [facility] Medical Records Department [facility] [place] [place] [address] Progress Note 04/20/25 1318 MR#: [id number] Acct: [id number] Name: ANGÉLICA YO Rep #:[id number] 2 : 1955 69 From: Kevin Gonzalez DO PCP: Dr. Daron Benton MD Status:ADM IN Location: [place] [address] Progress Note Patient has been n.p.o. for [...] ASA of 3. Visit Charges Inpatient E&M: 54422 Subs Hosp L2 04/20/25 1319 <Electronically signed by Kevin Gonzalez DO> Kevin Flores Signature (if applicable): CC: ~ Signed [facility] Work Phone: 1(438) 855-708706-02-2025 Procedure [facility] 04-20-2025 Procedure [facility]06-02-2025 Progress note Author Roman Mckeon [facility] Note Date/Time April 20, 2025 7:32a m [facility] Medical Records Department [address] [place] [address] Progress Note - Hospitalist 04/20/25 0728 MR#: [id number] Acct: [id number] Name: ANGÉLICA YO Rep #:[id number] : 1955 69 From: Roman Mckeon MD PCP: Dr. Daron Benton MD Status:ADM IN Location: [place] [address] Reason for Visit Reason for Visit: Diagnoses [...] 74.9 H, Lymph % (Auto) 11.1 L, Randall % (Auto) 11.3 H, Eos % (Auto) [...] pain regimen Charges/Coding Visit Charges Inpatient E&M: 19332 Subs Hosp L2 04/20/25 0732 <Electronically signed by Roman Mckeon MD> Cosigner Signature (if applicable): CC: ~ Signed [facility] Work Phone: 1(797) 725-403606-01-2025 Progress note Author Roman Mckeon [facility] Note Date/Time April 19, 2025 8:12a m [facility] Medical Records Department [facility] [place] [address] Progress Note - Hospitalist 04/19/25709 MR#: [id number] Acct: [id number] Name: ANGÉLICA YO Rep #:[id number] 2 : 1955 69 From: Roman Mckeon MD PCP: Dr. Daron Benton MD Status:ADM IN Location: [place] [address] Reason for Visit Reason for Visit: Diagnoses [...] (Auto) 79.5 H, Lymph % (Auto)9.5 L, Randall % (Auto) 9.4, Eos % (Auto) 0.5, [...] documentation, 52Minutes Charges/Coding Visit Charges Inpatient E&M: 42760 Subs Hosp 04/19/25 0812 <Electronically signed by Roman Mckeon MD> Cosigner Signature (if applicable): CC: ~ Signed [facility] Work Phone: 1(752) 194-823306-01-2025 History and physical note Author Sachin Murillo [facility] Note Date/Time April 19, 2025 12:52 am [facility] Medical Records Department [address] [place] [address] H&P Exam - Hospitalist 04/18/252126 MR#: [id number] Acct: [id number] Name: ANGÉLICA YO Rep #:[id number] 5 : 1955 69 From: Sachin chan MD PCP: Dr. Daron Benton MD Status:ADM IN Location: [place]3 [id number] HPI - General General Date of Admission: [...] lightheadedness or dizziness, no nausea or vomiting. 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 Daron Benton MD; Dr. Sachin Murillo MD~ Signed [facility] Work Phone: 1(753) 370-275906-01-2025 Discharge summary Author Jeffy Willoughby [facility] Note Date/Time April 18, 2025 10:46 pm [facility] Medical Records Department [address] [place] [address] Emergency Department Summary 04/18/25 MR#: [id number] Acct: [id number] Name: ANGÉLICA YO Rep #:[id number] 1 : 1955 69 From: Jeffy Willoughby MD PCP: Dr. 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 W[place] interval is 102 ms. Cures duration 82 ms. QT duration 456 ms. QTc is prolonged at 484 ms. [place] is normal. There is no acute ischemic changes noted.) Management Discussion w/another healthcare provider: Hospitalist (Evening hospitalist was paged. Patient will need admission with further workup. 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 Call [facility] ([phone]) or report to the closest Emergency Room. Call 911 if necessary. 04/18/252245 <Electronically signed by Jeffy Willoughby MD> Cosigner Signature (if applicable): CC: Dr. Daron Benton MD ~ Signed [facility] Work Phone: 1([phone]) 340-984805-30-2025 Radiology Diagnostic study note [facility] Imaging Services [address] [place] [address] [id number] Acute Abdomen Inc Chest MR#: [id number] Acct: [id number] Name: ANGÉLICA YO Rep #: [id number] 0 : 1955 F 69 From: Garo Bautista MD PCP: Dr. Daron Benton MD Status: REG ER Study:Acute Abdomen Inc Chest Date of Exam: 04/17/25 Exam# [id number] Ordering Dr: Kari Haynes DO PROCEDURE: ACUTE [...] Abdomen Inc Chest IMPRESSION: Constipation. Reading Location: [id number] CC: Dr. Daron Benton MD; Yasmani Haynes DO ~ Oracle Solutions Architect: Signed [facility]05-21-2025 History of Present illness Narrative* Lizz Lynn, ANTWON - INFORMATION CLERK CASHIER - 04/08/2025 2:30 PM EDT Visit type: Established Patient Reason for Visit: Follow-up and Multiple Sclerosis (/) Assessment and Plan 1. Multiple sclerosis (HCC) 2. Dysphasia Subjective HPI: Patient phoned in 3 days ago stating MS flare - affecting speech, swallowing, and VOSS. [facility] about 1 [facility]; according to [...] typical MS symptoms Received CT scan at [facility] that she states was normal REVIEW- MS- [...] TSH VITAMIN B12: No results found for: MHSHJMGD57 No results found for: PHENYTOIN, PHENOBARB, VALPROATE, CBMZ No components found for: TOPIRA @RESULTINGLABINFO@ No results found for: LEVETIRACETA, FERRITIN, CRP, DENNIS, ANCA No results found for: CHRISTIANO, IMMUNOGLOBUL, OLIGOBANDS No results found for: TDV20FA, HEPCAB No results found for: CRP, ANATITER, [...] scheduled in May, Lizz Lynn APRN - INFORMATION CLERK CASHIER, furnish ongoing care related to Angélica Yo [...] family history on file. documented in this [facility]05-21-2025 Instructions* Patient Instructions* ANTWON Harrington CNP - 04/08/2025 2:30 PM EDT Please call [facility] [phone] to schedule the MRI brain before 05/03/25 - this is when the authorization for the MRI expires documented in this [facility]05-15-2025 Radiology Diagnostic study [facility]05-15-2025 Discharge summary Author Nuno Grider [facility] Note Date/Time April 02, 2025 11:43 pm [facility] Medical Records Department [address] [place] [address] Emergency Department Summary 04/02/25 MR#: [id number] Acct: [id number] Name: ANGÉLICA YO Rep #:[id number] 9 : 1955 69 From: Nuno Grider [...] She denies any exacerbating or alleviating factors. 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 Once again, Idiscussed with her enku-hd-akqh if she would like to be observed, [...] 80.4 H Lymph % (Auto) 10.5 L Randall % (Auto) 6.6 Eos % (Auto) 1.5 [...] fever, new or worsening symptoms. Print Language: Venezuelan Disposition Disposition: Home, Self Care What to do if you have Problems For any increased pain, shortness of breath, bleeding, nausea or vomiting, chestpain, or any unexpected problems, contact your Primary Care Provider. Call [facility] ([phone]) or report to the closest Emergency Room. Call 911 if necessary. 04/02/25 3802 <Electronically signed by Nuno Grider MD> Cosigner Signature (if applicable): CC: Dr. Daron Benton MD ~ Signed [facility] Work Phone: 1([phone]) 978-666405-15-2025 Hospital Discharge instructions Additional Instructions Follow-up with your neurologist within the next 1 to 2 days. Return with increased weakness, fever, new or worsening symptoms.[facility] Work Phone: 1(214) 274-240004-21-2025 Telephone encounter Note* Telephone Encounter - Maeve Jacobson - 03/09/2025 11:40 AM EDT Order re faxed to [phone] [facility]. [id number] Miscellaneous Notes* Telephone Encounter - Maeve Scotland - 03/09/2025 11:40 AM EDT Order re faxed to [phone] [facility]. * Telephone Encounter - Maria Antonia Kelly - 03/09/2025 11:11 AM EDT Name of caller: Kody Contact phone number: [phone] Relationship to Patient: [facility] Provider: AURORA Lynn Practice: [facility] Neurology Nena Chief Complaint/Reason for Call: Kody called in requesting patient's MRI order be faxed over to them at fax # [phone]. Please be advised Best time of day caller can be reached: Any Patient advised that office/PCP has 24-48 business hours to return their call: N/A documented in this [facility]04-21-2025 Telephone encounter Note* Telephone Encounter - Maria Antonia Kelly - 03/09/2025 11:11 AM EDT Name of caller: Kody Contact phone number: [phone] Relationship to Patient: [facility] Provider: AURORA Lynn Practice: [facility] Neurology Nena Chief Complaint/Reason for Call: Kody called in requesting patient's MRI order be faxed over to them at fax # [phone]. Please be advised Best time of day caller can be reached: Any Patient advised that office/PCP has 24-48 business hours to return their call: N/A [id number] History of Present illness Narrative* Lizz Lynn, [employer] - INFORMATION CLERK CASHIER - 03/04/2025 10:30 AM EDT Visit type: [...] TSH VITAMIN B12: No results found for: AILTUNSE45 No results found for: PHENYTOIN, PHENOBARB, VALPROATE, CBMZ No components found for: TOPIRA @RESULTINGLABINFO@ No results found for: LEVETIRACETA, FERRITIN, CRP, DENNIS, ANCA No results found for: CHRISTIANO, IMMUNOGLOBUL, OLIGOBANDS No results found for: WVP46SS, HEPCAB No results found for: CRP, ANATITER, ANCA FERRITIN: No results found for: FERRITIN ---- ECG 12 lead SINUS BRADYCARDIA PROBABLE LEFT ATRIAL ABNORMALITY No previous ECG available for comparison Electronically Signed On 04-05-2023 7:42:10 EDT by Juvenal Benton @[facility]@ IMPRESSION and PLAN: Problem List Items Addressed [...] on @TDNR@ at @NOWNR@ documented in this [facility]04-04-2025 Evaluation note* Diagnosis Onset Date Resolution Status [...] 18, 2025 9:20pm 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 resolved April 18, 2025 9 :20pm Symptomatic anemia resolved April 182024 9:20pm Anemia acute May 06 2:10pm Constipation acute May 06 2:10pm [facility] Work Phone: 1(459) 760-889102-25-2025 [facility]02-23-2025 Evaluation note* Diagnosis Onset Date Resolution Status Admit Date Atherosclerotic heart diseas e of shoal[place] coronary artery without angina pectoris inactive January [...] 18, 2025 9:20pm 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 resolved April 18, 2025 9 :20pm Symptomatic anemia resolved April 182024 9:20pm [employer] Work Phone: 1(455) 829-190402-05-2025 Evaluation note* Diagnosis Onset Date Resolution Status Admit Date Hpfmj-8-twhdkxlaufy deficien cy carrier acute December 24 1:52pm Hypoxemia chronic December 24, 2024 1:52pm Emphysema of lung inactive 2024 1:52pm Nicotine dependence, cigarettes, uncomplicated inactive 2024 1:52pm Smoking greater than 30 pack years inactive December 24 1:52pm Atherosclerotic heart diseas e of shoal[place] coronary artery without angina pectoris inactive January [...] 18, 2025 9:20pm 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 acute April 18, 2025 9 :20pm Symptomatic anemia acute April 182024 9:20pm Acute on chronic anemia chronic M ay 2024 9:20pm [facility] Work Phone: 1([phone]) 199-785701-31-2025 Evaluation note* Diagnosis Onset Date Resolution Status Admit Date Mitral stenosis acute November 212024 1:16pm Bilateral carotid artery stenosis chronic December 19 1:16pm Essential (primary) hypertension inactive December 19 1:16pm PAF (paroxysmal atrial fibrillation) inactive December 19 1:16pm Peripheral vascular occlusiv e disease inactive December 19 1:16pm Ymtlr-1-yrwdwgbdnyc deficien cy carrier acute December 24 1:52pm Hypoxemia chronic December 24, 2024 1:52pm Emphysema of lung inactive 2024 1:52pm Nicotine dependence, cigarettes, uncomplicated inactive 2024 1:52pm Smoking greater than 30 pack years inactive December 24 1:52pm Atherosclerotic heart diseas e of shoal[place] coronary artery without angina pectoris inactive January [...] e disease inactive February 20, 2025 1:14pm [facility] Work Phone: 1([phone]) 926-150001-31-2025 Evaluation note* Diagnosis Onset Date Resolution Status Admit Date Mitral stenosis acute November 212024 1:16pm Bilateral carotid artery stenosis chronic December 19 1:16pm Essential (primary) hypertension inactive December 19 1:16pm PAF (paroxysmal atrial fibrillation) inactive December 19 1:16pm Peripheral vascular occlusiv e disease inactive December 19 1:16pm Wkfvy-4-nyvuqxzgevl deficien cy carrier acute December 24 1:52pm Hypoxemia chronic December 24, 2024 1:52pm Emphysema of lung inactive 2024 1:52pm Nicotine dependence, cigarettes, uncomplicated inactive 2024 1:52pm Smoking greater than 30 pack years inactive December 24 1:52pm Atherosclerotic heart diseas e of sho[place] coronary artery without angina pectoris inactive January [...] 18, 2025 9:19pm 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 acute April 18, 2025 9 :19pm Symptomatic anemia acute April 182024 9:19pm Acute on chronic anemia chronic M ay 2024 9:19pm [facility] Work Phone: 1([phone]) 220-515301-23-2025 [facility]01-21-2025 Evaluation note* Diagnosis Onset Date Resolution Status Admit Date Chest pain inactive December 09, 2024 2:32pm Chronic low back pain inactive Nov 2:32pm Diastolic hypertension inactive [facility] 2024 2:32pm Elevated troponin inactive December 09, 2024 2:32pm Nicotine dependence, cigarettes, uncomplicated inactive 2024 2:32pm Mitral stenosis acute November 212024 1:16pm Bilateral carotid artery stenosis chronic December 19 1:16pm Essential (primary) hypertension inactive December 19 1:16pm PAF (paroxysmal atrial fibrillation) inactive December 19 1:16pm Peripheral vascular occlusiv e disease inactive December 19 1:16pm Bfxof-4-dysmvzhwwhg deficien cy carrier acute December 24 1:52pm Hypoxemia chronic December 24, 2024 1:52pm Emphysema of lung inactive 2024 1:52pm Nicotine dependence, cigarettes, uncomplicated inactive 2024 1:52pm Smoking greater than 30 pack years inactive December 24 1:52pm Atherosclerotic heart diseas e of sho[place] coronary artery without angina pectoris inactive January [...] e disease inactive February 20, 2025 1:14pm [facility] Work Phone: 1(416) 423-348201-02-2025 Telephone encounter Note* Telephone Encounter - Linda [...] (see medication tab): 09/15/24 Updated/Validated preferred pharmacy: [id number] [address] [facility] Patient instructed to contact the pharmacy prior to picking up the medication: Yes [facility] [id number] Miscellaneous Notes* Telephone Encounter - Linda Glynn [...] medication tab): 09/15/24 Updated/Validated preferred pharmacy: [facility] #[id number] - [facility] [address] [place] [address] Patient instructed to contact the pharmacy prior to picking up the medication: Yes * Telephone Encounter - Nallely Zaragoza MA - 11/20/2024 2:22 PM EST Last ov-12/14/23 Next ov- N/A [facility]53 Telephone encounter Note* Telephone Encounter - Nallely Zaragoza MA - 11/20/2024 2:22 PM EST Last ov-12/14/23 Next ov- N/A [facility] [id number] Telephone encounter Note* Telephone Encounter - Yanely Kwon MA - 09/15/2024 6:47 AM EDT Last ov- 12/14/23 Next ov- n/a [facility] [id number] Miscellaneous Notes* Telephone Encounter - Yanely Kwon MA - 09/15/2024 6:47 AM EDT Last ov- 12/14/23 Next ov- n/a documented in this [facility]04-08-2024 Discharge summary Author Eva Mortensen [facility] February 25, 2024 4:04pm Note Date/Time February 25, 2024 3:34 pm [facility] Medical Records Department [address] [place] [address] Discharge Summary 02/25/24 1529 MR#: [id number] Acct: [id number] Name: ANGÉLICA YO Rep #:[id number] 0 : 1955 68 From: Eva Mortensen DO PCP: Dr. Daron Benton MD Status:ADM IN [facility] Prov[facility] Date of Admission: 02/19/24 Date [...] who presented to the emergency department at [facility] on 02/19/2024 with lightheadedness. She does have [...] (Auto) 68.4, Lymph % (Auto) 16.3 L, Randall % (Auto) 11.3 H, Eos % (Auto) [...] Health Service Charges/Coding Visit Charges Inpatient E&M: 89496 Disch Hosp >30min 02/25/24 1557 <Electronically signed [...] int community. 02/25/24 1604<Electronically signed by Eva Mortnesen DO> Cosigner Signature (if applicable): cc: Dr. Jorge Hurtado DO; Dr. Daron Benton MD; Dr. Eva Mortensen DO; Kevin Gonzalez DO ~* Signed [facility] Work Phone: [phone] [id number] Procedure [facility] 02-25-2024 Procedure [facility]04-07-2024 Progress note Author Roman Mckeon [facility] February 24, 2024 8:37am Note Date/Time February 24, 2024 8:07 am [facility] Medical Records Department [address] [place] [address] Progress Note - Hospitalist 02/24/24 0806 MR#: [id number] Acct: [id number] Name: ANGÉLICA YO Rep #:[id number] 6 : 1955 68 From: Roman Mckeon MD PCP: Dr. Daron Benton MD Status:ADM IN Location: [place] [address] Reason for Visit Reason for Visit: Diagnoses [...] (Auto) 69.1, Lymph % (Auto) 15.5 L, Randall % (Auto) 11.4 H, Eos % (Auto) [...] (Auto) 79.0 H, Lymph % (Auto)8.2 L, Randall % (Auto) 10.2 H, Eos % (Auto) [...] 35 Minutes Charges/Coding Visit Charges Inpatient E&M: 57919 [facility] Hosp L2 02/24/24 0837 <Electronically signed by Roman Mckeon MD> Cosigner Signature (if applicable): CC: ~ Signed [facility] Work Phone: 1(751) 632-929504-06-2024 Progress note Author Kevin Gonzalez [facility] February 23, 2024 4:20pm Note Date/Time February 23, 2024 4:20 pm [facility] Medical Records Department [address] [place] [address] Progress Note - GI 02/23/24 1619 MR#: [id number] Acct: [id number] Name: ANGÉLICA YO Rep #:[id number] 3 : 1955 68 From: Kevin Gonzalez DO PCP: Dr. Daron Benton MD Status:ADM IN Location: [place] [address] Subjective Subjective Patient does not have any [...] (Auto) 69.1, Lymph % (Auto) 15.5 L, Randall % (Auto) 11.4 H, Eos % (Auto) [...] on Sunday. Charges/Coding Visit Charges Inpatient E&M: 94422 Subs Hosp L3 02/23/24 1620 <Electronically signed by Kevin Friend DO> Cosigner Signature (if applicable): CC: ~ Signed [facility] Work Phone: 1(312) 303-988804-06-2024 Progress note Author Roman Mckeon [facility] February 23, 2024 9:04am Note Date/Time February 23, 2024 8:20 am [facility] Medical Records Department [address] [facility] [place] [address] Progress Note - Hospitalist 02/23/24819 MR#: [id number] Acct: [id number] Name: ANGÉLICA YO Rep #:[id number] 2 : 1955 68 From: Roman Mckeon MD PCP: Dr. Daron Benton MD Status:ADM IN Location: [place] [address] Reason for Visit Reason for Visit: Diagnoses [...] 38 Minutes Charges/Coding Visit Charges Inpatient E&M: 89365 Subs Hosp L2 02/23/24 0904 <Electronically signed by Roman Mckeon MD> Cosigner Signature (if applicable): CC: ~ Signed [facility] Work Phone: 1(893) 317-973404-05-2024 Progress note Author Kevin Friend [facility] February 22, 2024 5:55pm Note Date/Time February 22, 2024 5:55 pm [facility] Medical Records Department [address] [place] [address] Progress Note - GI 02/22/24 1753 MR#: [id number] Acct: [id number] Name: ANGÉLICA YO Rep #:[id number] 8 : 1955 68 From: Kevin Friend DO PCP: Dr. Daron Benton MD Status:ADM IN Location: [place] [address] Subjective Subjective Patient is still very lethargic [...] (Auto) 68.8, Lymph % (Auto) 14.2 L, Randall % (Auto) 12.5 H, Eos % (Auto) [...] and lethargy. Charges/Coding Visit Charges Inpatient E&M: 53411 Subs Hosp L3 02/22/24 4774 <Electronically signed by Kevin Friend DO> Cosigner Signature (if applicable): CC: ~ Signed [facility] Work Phone: 1(566) 672-490404-05-2024 Progress note Author Roman Mckeon [facility] February 22, 2024 9:50am Note Date/Time February 22, 2024 7:36 am [facility] Medical Records Department [address] [place] [address] Progress Note - Hospitalist 02/22/24 0736 MR#: [id number] Acct: [id number] Name: ANGÉLICA YO Rep #:[id number] 0 : 1955 68 From: Roman Mckeon MD PCP: Dr. Daron Benton MD Status:ADM IN Location: [place] [address] Reason for Visit Reason for Visit: Diagnoses [...] 52 Minutes Charges/Coding Visit Charges Inpatient E&M: 71475 Subs Hosp L3 02/22/24 0950 <Electronically signed by Roman Mckeon MD> Cosigner Signature (if applicable): CC: ~ Signed [facility] Work Phone: 1(830) 512-283404-04-2024 Progress note Author Kevin Gonzalez [facility] February 21, 2024 5:17pm Note Date/Time February 21, 2024 5:17 pm [facility] Medical Records Department [address] [place] [address] Progress Note - GI 02/21/24 1710 MR#: [id number] Acct: [id number] Name: ANGÉLICA YO Rep #:[id number] 8 : 1955 68 From: Kevin Gonzalez DO PCP: Dr. Daron Benton MD Status:ADM IN Location: [place] [address] Subjective Subjective She underwent an upper endoscopy [...] or outpatient. Charges/Coding Visit Charges Inpatient E&M: 57088 Subs Hosp L3 02/21/24 6827 <Electronically signed by Kevin Friend DO> Cosigner Signature (if applicable): CC: ~ Signed [facility] Work Phone: 1(607) 800-874804-04-2024 Progress note Author Roman Mckeon [facility] February 21, 2024 11:21am Note Date/Time February 21, 2024 10:0 5am [facility] Medical Records Department [address] [place] [address] Progress Note - Hospitalist 02/21/24 1002 MR#: [id number] Acct: [id number] Name: ANGÉLICA YO Rep #:[id number] 4 : 1955 68 From: Roman Mckeon MD PCP: Dr. Daron Benton MD Status:ADM IN Location: [place] [address] Reason for Visit Reason for Visit: Diagnoses [...] 50 Minutes Charges/Coding Visit Charges Inpatient E&M: 82718 Subs Hosp L3 02/21/24 1121 <Electronically signed by Roman Mckeon MD> Cosigner Signature (if applicable): CC: ~ Signed [facility] Work Phone: 1(217) 214-929604-03-2024 Progress note Author Roman Mckeon [facility] February 20, 2024 11:46am Note Date/Time February 20, 2024 10:0 8am [facility] Medical Records Department [address] [place] [address] Progress Note - Hospitalist 02/20/24 1005 MR#: [id number] Acct: [id number] Name: ANGÉLICA YO Rep #:[id number] 6 : 1955 68 From: Roman Mckeon MD PCP: Dr. Daron Benton MD Status:ADM IN Location: [place] [id number]- 1 Reason for Visit Reason for Visit: [...] 73.5 H, Lymph % (Auto) 14.5 L, Randall % (Auto) 8.5, Eos % (Auto) 2.6, [...] 71.0 H, Lymph % (Auto) 14.4 L, Randall % (Auto) 11.1 H, Eos % (Auto) [...] 50 Minutes Charges/Coding Visit Charges Inpatient E&M: 85053 Subs Hosp 02/20/24 1146 <Electronically signed by Roman Mckeon MD> Cosigner Signature (if applicable): CC: ~ Signed [facility] Work Phone: 1(685) 243-624004-03-2024 Procedure [facility] 02-20-2024 Procedure [facility]04-02-2024 Consult note Author Kevin Gonzalez [facility] February 19, 2024 7:12pm Note Date/Time February 19, 2024 7:09 pm [facility] Medical Records Department [address] [place] [address] Consultation - GI 02/19/24 1908 MR#: [id number] Acct: [id number] Name: ANGÉLICA YO Rep #:[id number] 1 : 1955 68 From: Kevin Gonzalez DO PCP: Dr. Daron Benton MD Status:ADM IN Location: [place] [address] HPI Consult Data Date of Consult: 02/19/24 [...] fell on Easter in the driveway onto [facility]. She did not hit her head. She denies any recent hospitalization or travel. Imaging of the chest displayed : right lower lobe infiltrate with small right pleural effusion with mild degree of vascular congestion in the right hemithorax. In the ED she was discovered to have a hemoglobin of 6.6. I was consulted for acute onset anemia [facility] Medical History Angina pectoris Bilateral carotid artery [...] Stomach morphine AdvReac Nausea Verified 02/19/24 10:57 Gxmqgbk-Bbk-Nrv Reductase AdvReac Nausea Verified 02/19/24 10:57 Inhibitor [...] 73.5 H, Lymph % (Auto) 14.5 L, Randall % (Auto) 8.5, Eos % (Auto) 2.6, [...] of 3. Charges/Coding Visit Charges Inpatient E&M: 93725 Init Hosp L3 02/19/241911 <Electronically signed by Kevin Friend DO> Cosigner Signature (if applicable): CC: Dr. Daron Benton MD~ Signed [facility] Work Phone: 1(306) 649-362304-02-2024 History and physical note Author Roman Mckeon [facility] February 19, 2024 3:25pm Note Date/Time February 19, 2024 2:26 pm [facility] Medical Records Department [address] [place] [address] H&P Exam - Hospitalist 02/19/24 1426 MR#: [id number] Acct: [id number] Name: ANGÉLICA YO Rep #:[id number] 0 : 1955 68 From: Roman Mckeon [...] Admitted to monitored bed for further management [facility] Medical History Angina pectoris Bilateral carotid artery [...] Stomach morphine AdvReac Nausea Verified 02/19/24 10:57 Zbbzdqq-LCI-LnI Reductase AdvReac Nausea Verified 02/19/24 10:57 Inhibitor [Wjcpcek-Ffy-Mby Reductase Inhibitor] Family History Mother Cancer CAD [...] 73.5 H, Lymph % (Auto) 14.5 L, Randall % (Auto) 8.5, Eos % (Auto) 2.6, [...] 18 minutes. Charges/Coding Visit Charges Inpatient E&M: 29964 Init Hosp L3 Procedures Hospitalists Procedures: 89971 Advncd Care Plan 30 Min 02/19/24 3610 <Electronically signed by Roman Mckeon MD> Cosigner Signature (if applicable): CC: Dr. Roman Mckeon MD; Dr. Daron Benton MD~ Signed [facility] Work Phone: 1(831) 937-598304-02-2024 Discharge summary Author Jeffy Willoughby [facility] February 19, 2024 2:59pm Note Date/Time February 19, 2024 12:1 5pm [facility] Medical Records Department [address] [place] [address] Emergency Department Summary 02/19/24 MR#: [id number] Acct: [id number] Name: ANGÉLICA YO Rep #:[id number] 6 : 1955 68 From: Jeffy Willoughby MD PCP: Dr. Daron Benton MD Status:REG ER Location: ED ADDENDUM by Dr. Jeffy Willoughby MD on 02/19/24 at 1459 EKG reveals atrial fibrillation with a ventricular rate 87. QRS duration 84 ms. QT duration 414 ms. [place] is normal. QT is prolonged. 02/19/24 1459<Electronically [...] Prior similar symptoms: Yes Recent Illness/Hospitalization: No [facility] <Bernice Warren RN - Last Filed: 02/19/24 13:46> [facility] Medical History Angina pectoris Bilateral carotid artery [...] Stomach morphine AdvReac Nausea Verified 02/19/24 10:57 Kqhobpn-EIR-PkK Reductase AdvReac Nausea Verified 02/19/24 10:57 Inhibitor [Ignwzle-Mde-Zln Reductase Inhibitor] Family History Mother Cancer CAD [...] Oxygen Delivery Method Room Air Room Air [facility] <Bernice Warren RN - Last Filed: 02/19/24 13:46> [facility] Narrative Medical decision making narrative: 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 IV line initiated. Labwork obtained to evaluate [...] 73.5 H Lymph % (Auto) 14.5 L Randall % (Auto) 8.5 Eos % (Auto) 2.6 [...] in both arms to rule out dissection. Lpqpx-xh-dqku glucose was obtained to rule out hypoglycemia. [...] Willoughby MD - Last Filed: 02/19/24 14:39> [facility] MDM Narrative Medical decision making narrative: 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 IV line initiated. Labwork obtained to evaluate [...] 73.5 H Lymph % (Auto) 14.5 L Randall % (Auto) 8.5 Eos % (Auto) 2.6 [...] for hypertension and pneumonia), Discussing w/Patient &/or Family/Shirt Folder, Discussing w/Consultants (Spoke with Dr. Chamorro who referred patient to Dr. Roman Mckeon. Patient was accepted.) and Arranging Admission or Transfer Discharge Plan Dx/Rx/DC Orders Clinical Impression: Acute hypotension, Essential (primary) hypertension, Atrial fibrillation, Community acquired pneumonia, Atypical chest pain, Signs and symptoms of anemia,Symptomatic anemia, Peripheral vascular occlusive disease Disposition Disposition: [facility] What to do if you have Problems For any increased pain, shortness of breath, bleeding, nausea or vomiting, chestpain, or any unexpected problems, contact your Primary Care Provider. Call [facility] ([phone]) or report to the closest Emergency Room. Call 911 if necessary. 02/19/24 1439 <Electronically signed by Jeffy Willoughby MD> Cosigner Signature (if applicable): 02/19/24 1346 <Electronically signed by Bernice Warren RN> CC: Dr. Daron Benton MD ~ Signed [facility] Work Phone: 1(335) 943-161304-02-2024 Discharge summary Author Jeffy Willoughby [facility] February 19, 2024 2:59pm Note Date/Time February 19, 2024 12:1 5pm [facility] Medical Records Department [address] [place] [address] Emergency Department Summary 02/19/24 MR#: [id number] Acct: [id number] Name: ANGÉLICA YO Rep #:[id number] 6 : 1955 68 From: Jeffy Willoughby MD PCP: Dr. Daron Benton MD Status:[facility] ER Location: ED ADDENDUM by Dr. Jeffy Willoughby MD on 02/19/24 at 1459 EKG reveals atrial fibrillation with a ventricular rate 87. QRS duration 84 ms. QT duration 414 ms. [place] is normal. QT is prolonged. 02/19/24 1459<Electronically [...] Stomach morphine AdvReac Nausea Verified 02/19/24 10:57 Hhqrjee-DQV-MwM Reductase AdvReac Nausea Verified 02/19/24 10:57 Inhibitor [Eppjxgw-Bja-Hyh Reductase Inhibitor] Family History Mother Cancer CAD [...] Warren RN - Last Filed: 02/19/24 13:46> [facility] MDM Narrative Medical decision making narrative: 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 IV line initiated. Labwork obtained to evaluate [...] 73.5 H Lymph % (Auto) 14.5 L Randall % (Auto) 8.5 Eos % (Auto) 2.6 [...] in both arms to rule out dissection. Nifye-ig-ijgv glucose was obtained to rule out hypoglycemia. [...] Medical decision making narrative: 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 IV line initiated. Labwork obtained to evaluate [...] 73.5 H Lymph % (Auto) 14.5 L Randall % (Auto) 8.5 Eos % (Auto) 2.6 [...] for hypertension and pneumonia), Discussing w/Patient &/or Family/Shirt Folder, Discussing w/Consultants (Spoke with Dr. Chamorro who referred patient to Dr. Roman Mckeon. Patient was accepted.) and Arranging Admission or Transfer Discharge Plan Dx/Rx/DC Orders Clinical Impression: Acute hypotension, Essential (primary) hypertension, Atrial fibrillation, Community acquired pneumonia, Atypical chest pain, Signs and symptoms of anemia,Symptomatic anemia, Peripheral vascular occlusive disease Disposition Disposition: [facility] What to do if you have Problems For any increased pain, shortness of breath, bleeding, nausea or vomiting, chestpain, or any unexpected problems, contact your Primary Care Provider. Call [facility] ([phone]) or report to the closest Emergency Room. Call 911 if necessary. 02/19/24 1439 <Electronically signed by Jeffy Willoughby MD> Cosigner Signature (if applicable): 02/19/24 1346 <Electronically signed by Bernice Warren RN> CC: Dr. Daron Benton MD ~ Signed [facility] Work Phone: 1(810) 376-500804-02-2024 History and physical note Author Roman Mckeon [facility] February 19, 2024 3:25pm Note Date/Time February 19, 2024 2:26 pm [facility] Medical Records Department [address] [place] [address] H&P Exam - Hospitalist 02/19/24 1426 MR#: [id number] Acct: [id number] Name: ANGÉLICA YO Rep #:[id number] 0 : 1955 68 From: Roman Mckeon [...] Admitted to monitored bed for further management [facility] Medical History Angina pectoris Bilateral carotid artery [...] Stomach morphine AdvReac Nausea Verified 02/19/24 10:57 Xbuvklx-SAS-OcK Reductase AdvReac Nausea Verified 02/19/24 10:57 Inhibitor [Zmplcsp-Dov-Lru Reductase Inhibitor] Family History Mother Cancer CAD [...] 73.5 H, Lymph % (Auto) 14.5 L, Randall % (Auto) 8.5, Eos % (Auto) 2.6, [...] 18 minutes. Charges/Coding Visit Charges Inpatient E&M: 19092 Init Hosp L3 Procedures Hospitalists Procedures: 97111 Advncd Care Plan 30 Min 02/19/24 3595 <Electronically signed by Roman Mckeon MD> Cosigner Signature (if applicable): CC: Dr. Roman Mckeon MD; Dr. Daron Benton MD~ Signed [facility] Work Phone: 1(250) 726-846703-25-2024 Telephone encounter Note* Telephone Encounter - Nicole [...] prior to picking up the medication: N/[id number] Miscellaneous Notes* Telephone Encounter - Nicole Cota [...] up the medication: N/A documented in this [facility]02-23-2024 Discharge summary Author Jori Garcia [facility] January 11, 2024 8:14am Note Date/Time January 11, 2024 2:45am [facility] Medical Records Department [address] [place] [address] Emergency Department Summary 01/11/24 MR#: [id number] Acct: [id number] Name: ANGÉLICA YO Rep #:[id number] 4 : 1955 68 From: Jori Garcia [...] in her ears, following with neurology at [facility], and has been having dizziness related [...] she has osteoporosis. Sheis on no anticoagulants. [facility] Medical History Angina pectoris Bilateral [...] Stomach morphine AdvReac Nausea Verified 01/11/24 02:15 Fjqinpf-TGS-UrT Reductase AdvReac Nausea Verified 01/11/24 02:15 Inhibitor [Kixgvyy-Vcn-Ugw Reductase Inhibitor] Family History Mother Cancer CAD [...] motor deficits and no sensory deficits noted [place] Coma Scale: document GCS findings Spontaneous Obeys [...] (prior Afib thought to have caused CVA/TIA, YJU3SW2-ZEUm score of 4, prescribed Eliquis but patient [...] 85.1 H Lymph % (Auto) 5.2 L Randall % (Auto) 7.7 Eos % (Auto) 0.2 [...] Clarity Clear Urine pH 7.0 Ur Specific [place] 1.010 Urine Protein Negative Urine Glucose (UA) [...] (Auto) Neut % (Auto) Lymph % (Auto) Randall % (Auto) Eos % (Auto) Baso % (Auto) Absolute Neuts (auto) Absolute Lymphs (auto) Nucleated RBC % Sodium Potassium Chloride Carbon Dioxide Anion Gap BUN Creatinine Estim Creat Clear Calc Est GFR (MDRD) Af Amer Est GFR (MDRD) Non-Af BUN/Creatinine Ratio Glucose Lactic Acid Calcium Magnesium Troponin I High Sens 17 Urine Color Urine Clarity Urine pH Ur Specific [place] Urine Protein Urine Glucose (UA) Urine Ketones [...] your Primary Care Provider. Call [facility] ([phone]) or report to the closest Emergency Room. Call 911 if necessary. 01/11/24813 <Electronically signed by Jori Garcia MD> Cosigner Signature (if applicable): CC: Dr. Tye Barnett MD; Dr. Daron Benton MD; MARIANA Candelario ~ Signed [facility] Work Phone: 1([phone]) 392-833901-26-2024 History of Present illness Narrative* Lizz Lynn APRN - INFORMATION CLERK CASHIER - 12/14/2023 2:00 PM EST Visit type: [...] after hospital: Pt states she presented to [facility] with dizziness, feeling unbalanced, high BP [...] unsure how much solumedrol she received. From [place] records: CT brain 12/02/23: no acute intracranial [...] TSH VITAMIN B12: No results found for: LLZELGMX58 No results found for: PHENYTOIN, PHENOBARB, VALPROATE, CBMZ No components found for: TOPIRA @RESULTINGLABINFO@ No results found for: LEVETIRACETA, FERRITIN, CRP, DENNIS, ANCA No results found for: CHRISTIANO, IMMUNOGLOBUL, OLIGOBANDS No results found for: PSY08RO, HEPCAB No results found for: CRP, ANATITER, ANCA FERRITIN: No results found for: FERRITIN ---- ECG 12 lead SINUS BRADYCARDIA PROBABLE LEFT ATRIAL ABNORMALITY No previous ECG available for comparison Electronically Signed On 04-05-2023 7:42:10 EDT by Juvenal Benton @[facility]APPOINTMENTTHISPROV@ IMPRESSION and PLAN: Problem List Items Addressed [...] 1 tablet on day 5 MRI from [facility] does not show reason for this; exam consistent with vertigo; will order vestibular theapy Vestibular therapy Referral to [facility]. No problem-specific Assessment & Plan notes found for this encounter. ANTWON Harrington CNP I spent 60 minutes caring for this patient today, reviewing labs, records, seeing the patient, documenting in the record and arranging for studies. Electronically signed by ANTWON Harrington CNP on @TDNR@ at @NOWNR@ documented in this [facility]01-26-2024 Instructions* Patient Instructions* ANTWON Harrington CNP - 12/14/2023 2:00 PM EST Prednisone 20mg: take 5 tablets on day 1, 4 tablets on day 2, 3 tablets on day 3, 2 tablets on day 4, and 1 tablet on day 5 Vestibular therapy at [facility] [phone] [facility] for eye exam: [phone] documented in this [facility]01-19-2024 Discharge summary Author Sachin Murillo [facility] December 07, 2023 12:49pm Note Date/Time December 07, 2023 1 2:38pm [facility] Medical Records Department [address] [place] [address] Instructions for Home/Discharge Instructions 12/07/23 1238 MR#: [id number] Acct: [id number] Name: ANGÉLICA YO Rep #:[id number] 3 : 1955 68 From: Sachin chan [...] Suh; Kristopher Hernández; Silvino Schmidt; Sarkis Brown; Simon Tellez; Michele Rascon; [...] can be placed): Home Health Service 12/07/23 2588<Electronically signed by Sachin Murillo MD>Sachin Murillo MD CC: Jo Ann Krishnamurthy; Ruby Wynn; Rima Riggins; Michele Crawley; Kiley Carpenter MD;Angie Shields MD; Kt Friend MD; Deepika Graham MD; Dr. Lyle Mena MD; Dr. Roman Mckeon MD; Dr. Johnny Sepulveda MD; Dr. Daron Benton MD; Dr. Nikole Allison MD; Dr. Kristopher Hernández MD; Dr. Gerald Suh MD; Dr. Silvino Schmidt DO; Dr.Mhd Puenet Tellez MD; Dr. Sarkis Brown MD; Dr. Kirsten Azevedo MD; Dr. Joseph Desai MD; Dr. Samina Mortensen MD; Phil Terry MD; Maurilio Garland MD; Arleen Estrada DO; Jose Santos MD; Rhiannon Farris DO; Keyona Davidson MD ~ [facility] Work Phone: 1(432) 610-586601-18-2024 Progress note Author Sachin Murillo [facility] December 06, 2023 9:04am Note Date/Time December 06, 2023 9 :04am [facility] Medical Records Department [address] [place] [address] Progress Note - Hospitalist 12/06/23 0900 MR#: [id number] Acct: [id number] Name: ANGÉLICA YO Rep #:[id number] 3 : 1955 68 From: Sachin chan [...] (Auto) 79.3 H, Lymph % (Auto) 10.6L, Randall % (Auto) 9.4, Eos % (Auto) 0.0, [...] Continue with Synthroid DVT: Eliquis Capacity Legal Chief Librarian Circulation Department Reflex Medical hold order details:: IF a medical hold is selected below, a suggested order for a MEDICAL HOLD will reflex upon signing the document. Next of kin: [place] law dictates a PRIORITY LIST for identifying legal decision-maker/legal next of kin in the following order (LNOK): 1st: The patient?s legal guardian, if any 2nd: The patient's spouse (if status is questionable, consult Risk Management) 3rd: The patient?s adult child(blaine) (majority, if multiple children) 4th: The patient?s parents 5th: The patient?s adult siblings (majority, if multiple children siblings) Charges/Coding Visit Charges Inpatient E&M: 14636 Subs Hosp L2 12/06/23 0904 <Electronically signed by Sachin Murillo MD> Cosigner Signature (if applicable): CC: ~ Signed [facility] Work Phone: 1(166) 857-296601-17-2024 Progress note Author Kiley Carpenter [facility] December 05, 2023 3:42pm Note Date/Time December 05, 2023 1 :57pm [facility] Medical Records Department [address] [facility] [place] [address] Progress Note - Neurology 12/05/23 1348 MR#: [id number] Acct: [id number] Name: ANGÉLICA YO Rep #:[id number] 3 : 1955 68 From: Kiley Carpenter [...] NIHSS: Ischemic Stroke/TIA Start: 12/03/23 09:41 Freq: [id number] Status: Active Protocol: Activity Type Activity Date [...] 90.5 H, Lymph % (Auto) 5.1 L, Randall % (Auto) 3.7, Eos % (Auto) 0.0, [...] 5 5 EF 5 5 WE WF [employer] 5 5 HF 3 5 KE 4 5 KF 5 4 DF 5 5 PF 5 5 -? Sensation- Intact to light touch bilaterally -? Coordination: improved ataxia on the RLE (not prominent); b/l UE with no ataxia -? Gait- deferred 12/05/23 1542 <Electronically signed by Kiley Carpenter MD> Cosigner Signature (if applicable): CC: ~ Signed [facility] Work Phone: 1(178) 936-619101-17-2024 Progress note Author Sachin Murillo [facility] December 05, 2023 10:21am Note Date/Time December 05, 2023 1 0:21am [facility] Medical Records Department [address] [place] [address] Progress Note - Hospitalist 12/05/23 1016 MR#: [id number] Acct: [id number] Name: ANGÉLICA YO Rep #:[id number] 1 : 1955 68 From: Sachin chan [...] 90.5 H, Lymph % (Auto) 5.1 L, Randall % (Auto) 3.7, Eos % (Auto) 0.0, [...] meds as needed DVT: Eliquis Capacity Legal Chief Librarian Circulation Department Reflex Medical hold order details:: IF a medical hold is selected below, a suggested order for a MEDICAL HOLD will reflex upon signing the document. Next of kin: [place] law dictates a PRIORITY LIST for identifying legal decision-maker/legal next of kin in the following order (LNOK): 1st: The patient?s legal guardian, if any 2nd: The patient's spouse (if status is questionable, consult Risk Management) 3rd: The patient?s adult child(blaine) (majority, if multiple children) 4th: The patient?s parents 5th: The patient?s adult siblings (majority, if multiple children siblings) Charges/Coding Visit Charges Inpatient E&M: 21338 Subs Hosp L2 12/05/23 1021 <Electronically signed by Sachin Murillo MD> Cosigner Signature (if applicable): CC: ~ Signed [facility] Work Phone: 1(313) 193-913401-17-2024 Progress note Author Jorge Hurtado [facility] December 05, 2023 8:31am Note Date/Time December 05, 2023 7 :39am [facility] Medical Records Department [address] [place] [address] Progress Note - Seasoning Mixer 12/05/23 0737 MR#: [id number] Acct: [id number] Name: ANGÉLICA YO Rep #:[id number] 1 : 1955 68 From: Jorge Hurtado [...] noted above. This note was generated with [employer] dictation software. It may contain incorrectwords, spelling, [...] 90.5 H, Lymph % (Auto) 5.1 L, Randall % (Auto) 3.7, Eos % (Auto) 0.0, [...] Psych cooperative Charges/Coding Visit Charges Inpatient E&M: 43646 Subs Hosp L2 12/05/23 0831 <Electronically signed by Jogre Hurtado DO> Cosigner Signature (if applicable): CC: ~ Signed [facility] Work Phone: 1(876) 903-149901-17-2024 Progress note Author Kiley Carpenter [facility] December 04, 2023 10:44pm Note Date/Time December 04, 2023 8 :19pm [facility] Medical Records Department [address] [place] [address] Progress Note - Neurology 12/04/232014 MR#: [id number] Acct: [id number] Name: ANGÉLICA YO Rep #:[id number] 8 : 1955 68 From: Kiley Carpenter [...] NIHSS: Ischemic Stroke/TIA Start: 12/03/23 09:41 Freq: [id number] Status: Active Protocol: Activity Type Activity Date [...] (Auto) 91.9 H, Lymph % (Auto)4.1 L, Randall % (Auto) 3.1, Eos % (Auto) 0.0, [...] Cosigner Signature (if applicable): CC: ~ Signed [facility] Work Phone: 1(893) 835-759701-16-2024 Consult note Author Jorge Hurtado [facility] December 04, 2023 2:14pm Note Date/Time December 04, 2023 7 :20am [facility] Medical Records Department [address] [place] [address] Consultation - Seasoning Mixer 12/04/23 0715 MR#: [id number] Acct: [id number] Name: ANGÉLICA YO Rep #:[id number] 6 : 1955 68 From: Jorge Hurtado [...] noted above. This note was generated with Mai[employer] software. It may contain incorrectwords, spelling, and [...] maintained on Eliquis, Plavix, Neurontin and antimicrobials. [facility] Medical History Angina pectoris Bilateral carotid artery [...] Stomach morphine AdvReac Nausea Verified 11/26/23 12:47 Vwzodjr-PIB-LpD Reductase AdvReac Nausea Verified 11/26/23 12:47 Inhibitor [Tcrcdxz-Jtk-Ewr Reductase Inhibitor] Family History Mother Cancer CAD [...] (Auto) 91.9 H, Lymph % (Auto)4.1 L, Randall % (Auto) 3.1, Eos % (Auto) 0.0, [...] confirmed on 12/03/2023 08:25:43 (ET). Electronically Signed: Jovno Freitas MD at 8:27 EST , ADDENDUM: 12/03/23 0833 IMPRESSION: Chronic involutional changes of the brain. Stable examination. N.B. : The above Results were Read Back by Jovon Freitas MD to Sachin Murillo MD, and understanding confirmed on 12/03/2023 08:25:43 (ET). Electronically Signed: Joovn Freitas MD at 8:27 EST , Chest [...] MD at 22:18 EST , Capacity Legal Chief Librarian Circulation Department Reflex Medical hold order details:: IF a medical hold is selected below, a suggested order for a MEDICAL HOLD will reflex upon signing the document. Next of kin: [place] law dictates a PRIORITY LIST for identifying legal decision-maker/legal next of kin in the following order (LNOK): 1st: The patient?s legal guardian, if any 2nd: The patient's spouse (if status is questionable, consult Risk Management) 3rd: The patient?s adult child(blaine) (majority, if multiple children) 4th: The patient?s parents 5th: The patient?s adult siblings (majority, if multiple children siblings) Charges/Coding Visit Charges Inpatient E&M: 40348 Init Hosp L3 12/04/23 1414 <Electronically signed [...] Rhiannon Farris DO; Keyona Davidson MD~ Signed [facility] Work Phone: 1([phone] 687-620301-16-2024 Progress note Author Sachin Murillo [facility] December 04, 2023 9:58am Note Date/Time December 04, 2023 9 :58am [facility] Medical Records Department [address] [place] [address] Progress Note - Hospitalist 12/04/23 0953 MR#: [id number] Acct: [id number] Name: ANGÉLICA YO Rep #:[id number] 1 : 1955 68 From: Sachin chan [...] (Auto) 91.9 H, Lymph % (Auto)4.1 L, Randall % (Auto) 3.1, Eos % (Auto) 0.0, [...] meds as needed DVT: Eliquis Capacity Legal Chief Librarian Circulation Department Reflex Medical hold order details:: IF a medical hold is selected below, a suggested order for a MEDICAL HOLD will reflex upon signing the document. Next of kin: [place] law dictates a PRIORITY LIST for identifying legal decision-maker/legal next of kin in the following order (LNOK): 1st: The patient?s legal guardian, if any 2nd: The patient's spouse (if status is questionable, consult Risk Management) 3rd: The patient?s adult child(blaine) (majority, if multiple children) 4th: The patient?s parents 5th: The patient?s adult siblings (majority, if multiple children siblings) Charges/Coding Visit Charges Inpatient E&M: 62537 Subs Hosp L2 12/04/23 0958 <Electronically signed by Sachin Murillo MD> Cosigner Signature (if applicable): CC: ~ Signed [facility] Work Phone: 1(611) 393-598001-16-2024 Progress note Author Roman Hewitt [facility] December 04, 2023 12:19am Note Date/Time December 03, 2023 8 :22pm [facility] Medical Records Department [address] [place] [address] Progress Note - Hospitalist 12/03/232018 MR#: [id number] Acct: [id number] Name: CHRISTINANGÉLICA SNOW Rep #:[id number] 9 : 1955 68 From: Roman Ortega [...] this time. I patiently spoke to the BAKESHOP CLEANER and informed her to send the patient [...] sonwas updated with results. RUN DATE: 12/03/23 [facility], DEPARTMENT OF LABORATORIES PAGE 1 RUN TIME: 2038 Specimen Inquiry [address] [place], [address] PATIENT: ANGÉLICA YO LOC: ICU U #: [id number] : 1955 AGE/SX: 68/F FACILITY: [facility] ROOM: ICU02 RE12/02/[address]: Dr. Sachin Murillo STATUS:ADM IN ED: 1 DIS: ~ SPEC #: [id number] LIZBET: 12/03/23 STATUS: COMP REQ #: [id number] RECD: 12/03/23-[address]: Dr. Sachin Murillo [...] CO2 23 mmol/L SO2 95 95-99 % [facility] Imaging Services [address] [place] [address] CTA Head AND Neck W/ Contrast MR#: [id number] Acct: [id number] Name: ANGÉLICA YO Rep #: [id number] : 1955 F 68 From: Charmaine Grant MD PCP: Dr. Daron Benton MD Status: ADM IN Study: CTA Head AND Neck W/ Contrast Date of Exam: 12/03/23 Exam# [id number] Ordering Dr: Roman Miller DO STUDY: CTA [...] There is no demonstrated aneurysm of the [place]. There is no demonstrated abnormality [...] Electronically Signed: Charmaine Grant MD at 22:18 [facility] , CC: Dr. Roman Miller DO; Dr. Daron Benton MD ~ [employer] Solutions Architect: Signed 12/04/23 0019 <Electronically signed by Roman Miller DO> Cosigner Signature (if applicable): CC: ~ Signed [facility] Work Phone: 1(785) 604-700301-15-2024 Progress note Author Sachin Murillo [facility] December 03, 2023 2:31pm Note Date/Time December 03, 2023 2 :22pm [facility] Medical Records Department [address] [place] [address] Progress Note - Hospitalist 12/03/23 1419 MR#: [id number] Acct: [id number] Name: ANGÉLICA YO Rep #:[id number] 5 : 1955 68 From: Sachin chan MD PCP: Dr. Daron Benton MD Status:ADM IN Location: [place] [address] Subjective Subjective She was a stroke alert [...] 88.4 H, Lymph % (Auto) 10.2 L, Randall % (Auto) 0.8, Eos % (Auto) 0.0, [...] meds as needed DVT: Eliquis Capacity Legal Chief Librarian Circulation Department Reflex Medical hold order details:: IF a medical hold is selected below, a suggested order for a MEDICAL HOLD will reflex upon signing the document. Next of kin: [place] law dictates a PRIORITY LIST for identifying legal decision-maker/legal next of kin in the following order (LNOK): 1st: The patient?s legal guardian, if any 2nd: The patient's spouse (if status is questionable, consult Risk Management) 3rd: The patient?s adult child(blaine) (majority, if multiple children) 4th: The patient?s parents 5th: The patient?s adult siblings (majority, if multiple children siblings) Charges/Coding Visit Charges Inpatient E&M: 15589 Subs Hosp L2 12/03/23 1431 <Electronically signed by Sachin Murillo MD> Cosigner Signature (if applicable): CC: ~ Signed [facility] Work Phone: 1(744) 885-176701-14-2024 Consult note Author Kiley Carpenter [facility] December 02, 2023 2:51pm Note Date/Time December 02, 2023 2 :05pm [facility] Medical Records Department [address] [place] [address] Consultation - Neurology 12/02/23 1403 MR#: [id number] Acct: [id number] Name: ANGÉLICA YO Rep #:[id number] 9 : 1955 68 From: Kiley Carpenter MD PCP: Dr. Daron Benton MD Status:ADM IN Location: [place] [address] Assessment and Plan: Neuro Assessment/Plan ANGÉLICA YO [...] any urinary symptoms. Her neurologist is in [place]. ANGÉLICA YO, is a 68 F with [...] hrs Had her aneurysm coiled in 2013. [facility] Medical History Angina pectoris Bilateral carotid artery [...] Stomach morphine AdvReac Nausea Verified 11/26/23 12:47 Uhobiqf-OVB-AkE Reductase AdvReac Nausea Verified 11/26/23 12:47 Inhibitor [Nvpmzbl-Zsy-Iwz Reductase Inhibitor] Family History Mother Cancer CAD [...] 4 EF 5 4 WE l WF [employer] 5 5 HF 3 4 KE 4 [...] % (Auto) 56.3, Lymph % (Auto) 28.5, Randall % (Auto) 12.7 H, Eos % (Auto) [...] Clarity Clear, Urine pH 6.5, Ur Specific [place] 1.015, Urine Protein 15 H, Urine Glucose [...] 12:45 Baclofen 10 Mg Tablet PO Q8 [facility] Cholecalciferol 125 mcg 12/03/23 10:00 Cholecalciferol (Vit D3) 125 Mcg Capsule (5,000 Units) PO DAILY [facility] Clopidogrel Bisulfate 75 mg 12/03/23 10:00 Clopidogrel Bisulfate 75 Mg Tablet PO DAILY [facility] Docusate Sodium 100 mg 12/02/23 12:37 Docusate Sodium 100 Mg Capsule PO BID PRN PRN Constipation Gabapentin 800 mg 12/02/23 12:45 Gabapentin 800 Mg Tablet PO TIDCM [facility] Guaifenesin 1 tablet 12/02/23 22:00 Guaifenesin/D-Methorphan Tab.Sr.12h PO Q12 [facility]IM[facility] Guaifenesin 20 ml 12/02/23 12:37 Guaifenesin 10 Ml Udc (200mg/10ml) PO Q4H PRN PRN COUGH Potassium Chloride/Dextrose/Sod Cl 20 meq in 1,000 mls @ 100 mls/hr 12/02/23 12:37 IV 12/03/23 08:36 .Q10H [facility] Ceftriaxone Sodium 1 gm in 50 mls @ 100 mls/hr 12/02/23 12:37 Rocephin IV 12/09/23 12:38 Q24 [facility] Levothyroxine Sodium 50 mcg 12/03/23 06:00 Levothyroxine 50 Mcg Tablet PO DAILY@0600 VIMAL Lisinopril 5 mg 12/03/23 10:00 Lisinopril 5 Mg Tablet PO DAILY [facility] Protocol Melatonin 3 mg 12/02/23 12:37 Melatonin [...] Arleen Estrada DO; Keyona Davidson MD~ Signed [facility] Work Phone: 1([phone]) 756-810301-14-2024 Discharge summary Author Gabriella [facility] December 02, 2023 1:21pm Note Date/Time December 02, 2023 8 :23am [facility] Medical Records Department [address] [place] [address] Emergency Department Summary 12/02/23 MR#: [id number] Acct: [id number] Name: ANGÉLICA YO Rep #:[id number] 6 : 1955 68 From: Gabriella Green PCP: Dr. Daron Benton MD Status:ADM IN Location: [place] [address] HPI History of Present Illness Chief Complaint: [...] any urinary symptoms. Her neurologist is in [place]. [facility] Medical History Angina pectoris Bilateral [...] Stomach morphine AdvReac Nausea Verified 11/26/23 12:47 Jqywezd-QMO-RnX Reductase AdvReac Nausea Verified 11/26/23 12:47 Inhibitor [Xosxckx-Qbb-Jcf Reductase Inhibitor] Family History Mother Cancer CAD [...] off the bed. Is able to do neyqsm-vz-aewa but has bilateral ataxia with it. Too [...] to touch my finger her nose with tirftr-bt-geqs. Her symptoms started at least 24 hours [...] % (Auto) 56.3 Lymph % (Auto) 28.5 Randall % (Auto) 12.7 H Eos % (Auto) [...] Clarity Clear Urine pH 6.5 Ur Specific Wil[place]ham 1.015 Urine Protein 15 H Urine Glucose [...] 8:45 EST Reading Location ID and State: [facility] / [place] Tel , Service support , Chest X-Ray [...] Multiple sclerosis Disposition Disposition: Acute Care Hospital [facility] Discharge Date/Time: 12/02/23 12:36 What to do if you have Problems For any increased pain, shortness of breath, bleeding, nausea or vomiting, chestpain, or any unexpected problems, contact your Primary Care Provider. Call [facility] ([phone]) or report to the closest Emergency Room. Call 911 if necessary. 12/02/23 1321 <Electronically signed by Gabriella Simpson DO> Cosigner Signature (if applicable): CC: Dr. Daron Benton MD ~ Signed [facility] Work Phone: 1([phone]) 237-821001-14-2024 History and physical note Author Roman Mckeon [facility] Paula 14th, 2024 11:53am Note Date/Time December 02, 2023 1 1:43am [facility] Medical Records Department [address] [place] [address] H&P Exam - Hospitalist 12/02/23 1140 MR#: [id number] Acct: [id number] Name: ANGÉLICA YO Rep #:[id number] 9 : 1955 68 From: Roman Mckeon MD PCP: Dr. Daron Benton MD Status:ADM IN Location: [place] JJ709-9 HPI - General General Date of Admission: [...] to a monitored bed for further management [facility] Medical History Angina pectoris Bilateral carotid artery [...] Stomach morphine AdvReac Nausea Verified 11/26/23 12:47 Datocud-VTV-PtP Reductase AdvReac Nausea Verified 11/26/23 12:47 Inhibitor [Foarniz-Uub-Aue Reductase Inhibitor] Family History Mother Cancer CAD [...] % (Auto) 56.3, Lymph % (Auto) 28.5, Randall % (Auto) 12.7 H, Eos % (Auto) [...] Clarity Clear, Urine pH 6.5, Ur Specific [place] 1.015, Urine Protein 15 H, Urine Glucose [...] 18 minutes. Charges/Coding Visit Charges Inpatient E&M: 90397 Init Hosp L3 Procedures Hospitalists Procedures: 12798 Advncd Care Plan 30 Min 12/02/23 1153 <Electronically signed by Roman Mckeon MD> Cosigner Signature (if applicable): CC: Dr. Roman Mckeon MD; Dr. Daron Benton MD~ Signed [facility] Work Phone: [phone]) [phone] Discharge summary Author Ramírez Onofre [facility] November 27, 2023 11:55am Note Date/Time November 27, 2023 9: 40am [facility] Medical Records Department [address] [place] [address] Emergency Department Summary 11/27/23 MR#: [id number] Acct: [id number] Name: ANGÉLICA YO Rep #:[id number] 3 : 1955 68 From: Ramírez Onofre [...] Prior similar symptoms: No Recent Illness/Hospitalization: [facility] Medical History Angina pectoris Bilateral carotid artery [...] Stomach morphine AdvReac Nausea Verified 11/26/23 12:47 Mfzqdiq-GNQ-IcH Reductase AdvReac Nausea Verified 11/26/23 12:47 Inhibitor [Bkqafkc-Ihy-Ryp Reductase Inhibitor] Family History Mother Cancer CAD [...] moving all 4 extremities. 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 Dorsi and plantarflexion [...] 71.7 H Lymph % (Auto) 16.8 L Randall % (Auto) 9.9 Eos % (Auto) 0.4 [...] rate of 50 no acute signs of [place] or ischemia. No significant change from November [...] your Primary Care Provider. Call [facility] ([phone]) or report to the closest Emergency Room. Call 911 if necessary. 11/27/23 1151 <Electronically signed by Ramírez Onofre MD> Cosigner Signature (if applicable): CC: Dr. Daron Benton MD ~ Signed [facility] Work Phone: 1(875) 546-394201-03-2024 Discharge summary Author Sachin Murillo [facility] November 21, 2023 9:07am Note Date/Time November 21, 2023 8: 56am [facility] Medical Records Department [address] [place] [address] Instructions for Home/Discharge Instructions 11/21/23 0855 MR#: [id number] Acct: [id number] Name: ANGÉLICA YO Rep #:[id number] 2 : 1955 68 From: Sachin chan [...] MD; Dr. Daron Benton MD ~ Signed [facility] Work Phone: 1(921) 964-175501-02-2024 Progress note Author Sachin Murillo [facility] November 20, 2023 10:23am Note Date/Time November 20, 2023 10 :23am [facility] Medical Records Department [address] [place] [address] Progress Note - Hospitalist 11/20/23 1021 MR#: [id number] Acct: [id number] Name: ANGÉLICA YO Rep #:[id number] 6 : 1955 68 From: Sachin chan MD PCP: Dr. Daron Benton MD Status:ADM IN Location: [place] [address] Subjective Subjective Still feels fatigued and unwell [...] 81.9 H, Lymph % (Auto) 5.9 L, Randall % (Auto) 9.8, Eos % (Auto) 0.1, [...] 14:56 EST Reading Location ID and State: [facility] / [place] Tel , Service support , Physical Exam [...] DVT: SCDs Charges/Coding Visit Charges Inpatient E&M: 44126 Subs Hosp L2 11/20/23 1023 <Electronically signed by Sachin Murillo MD> Cosigner Signature (if applicable): CC: ~ Signed [facility] Work Phone: 1(451) 865-750801-01-2024 Progress note Author Sachin Murillo [facility] November 19, 2023 10:52am Note Date/Time November 19, 2023 10 :52am [facility] Medical Records Department [address] [place] [address] Progress Note - Hospitalist 11/19/23 1046 MR#: [id number] Acct: [id number] Name: ANGÉLICA YO Rep #:[id number] 6 : 1955 68 From: Sachin chan MD PCP: Dr. Daron Benton MD Status:ADM IN Location: [place] [address] Subjective Subjective Doing well, no issues overnight. [...] % (Auto) 66.4, Lymph % (Auto) 19.4, Randall % (Auto) 12.9 H, Eos % (Auto) [...] Clarity Clear, Urine pH 6.0, Ur Specific [place] 1.015, Urine Protein Negative, Urine Glucose (UA) [...] (Auto) 67.7, Lymph % (Auto) 17.1 L, Randall % (Auto) 13.3 H, Eos % (Auto) [...] DVT: SCDs Charges/Coding Visit Charges Inpatient E&M: 58376 Subs Hosp L2 11/19/23 1052 <Electronically signed by Sachin Murillo MD> Cosigner Signature (if applicable): CC: ~ Signed [facility] Work Phone: 1(214) 730-369012-31-2023 History and physical note Author Sommer Resendiz [facility] November 18, 2023 8:55pm Note Date/Time November 18, 2023 2:14pm [facility] Medical Records Department [address] [place] [address] H&P Exam - Hospitalist 11/18/23 1413 MR#: [id number] Acct: [id number] Name: ANGÉLICA YO Rep #:[id number] 5 : 1955 68 From: Sommer Resendiz MD PCP: Dr. Daron Benton MD Status:ADM IN Location: [place] [address] HPI - General General Date of Admission: [...] injury associated to now represents to the [facility] ED on 11/18/23 with history of [...] Stomach morphine AdvReac Nausea Verified 11/15/23 11:27 Nwqwodr-UTC-ZqD Reductase AdvReac Nausea Verified 11/15/23 11:27 Inhibitor [Jicfoip-Xom-Jgy Reductase Inhibitor] Family History Mother Cancer CAD [...] % (Auto) 66.4, Lymph % (Auto) 19.4, Randall % (Auto) 12.9 H, Eos % (Auto) [...] Clarity Clear, Urine pH 6.0, Ur Specific [place] 1.015, Urine Protein Negative, Urine Glucose (UA) [...] upper lobe. Minor bibasilar atelectasis. Electronically Signed: hCago Mcintyre MD at 13:04 EST Reading Location ID and State: [address] [place] [address] Tel , Service support , Assessment & [...] injury associated to now represents to the [facility] ED on 11/18/23 with history of [...] Code status. Charges/Coding Visit Charges Inpatient E&M: 48680 Init Hosp L3 11/18/232054 <Electronically signed by Sommer Resendiz MD> Cosigner Signature (if applicable): CC: Dr. Sommer Resendiz MD; Dr. Daron Benton MD~ Signed [facility] Work Phone: 1(710) 946-134912-31-2023 Discharge summary Author Michele Kebede [facility] November 18, 2023 3:08pm Note Date/Time November 18, 2023 12:03pm [facility] Medical Records Department [address] [place] [address] Emergency Department Summary 11/18/23 MR#: [id number] Acct: [id number] Name: ANGÉLICA YO Rep #:[id number] 0 : 1955 68 From: Michele Kebede [...] states she has never had atrial fibrillation. [facility] Medical History Angina pectoris Bilateral [...] Stomach morphine AdvReac Nausea Verified 11/15/23 11:27 Uakcdlv-TRZ-GkM Reductase AdvReac Nausea Verified 11/15/23 11:27 Inhibitor [Zgeuneg-Lxg-Qxc Reductase Inhibitor] Family History Mother Cancer CAD [...] % (Auto) 66.4 Lymph % (Auto) 19.4 Randall % (Auto) 12.9 H Eos % (Auto) [...] Clarity Clear Urine pH 6.0 Ur Specific [place] 1.015 Urine Protein Negative Urine Glucose (UA) [...] Influenza A Disposition Disposition: Acute Care Hospital [facility] What to do if you have Problems For any increased pain, shortness of breath, bleeding, nausea or vomiting, chestpain, or any unexpected problems, contact your Primary Care Provider. Call [facility] ([phone]) or report to the closest Emergency Room. Call 911 if necessary. 11/18/23 1508 <Electronically signed by Michele Kebede MD> Cosigner Signature (if applicable): CC: Dr. Daron Benton MD ~ Signed [facility] Work Phone: 1(236) 931-900912-31-2023 Discharge summary Author Michele Kebede [facility] November 18, 2023 3:08pm Note Date/Time November 18, 2023 12:03pm [facility] Medical Records Department [address] [place] [address] Emergency Department Summary 11/18/23 MR#: [id number] Acct: [id number] Name: ANGÉLICA YO Rep #:[id number] 0 : 1955 68 From: Michele Kebede [...] states she has never had atrial fibrillation. [facility] Medical History Angina pectoris Bilateral [...] Stomach morphine AdvReac Nausea Verified 11/15/23 11:27 Vqrxlki-LNS-VpN Reductase AdvReac Nausea Verified 11/15/23 11:27 Inhibitor [Cdcekjd-Hhq-Fga Reductase Inhibitor] Family History Mother Cancer CAD [...] % (Auto) 66.4 Lymph % (Auto) 19.4 Randall % (Auto) 12.9 H Eos % (Auto) [...] Clarity Clear Urine pH 6.0 Ur Specific [place] 1.015 Urine Protein Negative Urine Glucose (UA) [...] Influenza A Disposition Disposition: Acute Care Hospital [facility] What to do if you have Problems For any increased pain, shortness of breath, bleeding, nausea or vomiting, chestpain, or any unexpected problems, contact your Primary Care Provider. Call [facility] ([phone]) or report to the closest Emergency Room. Call 911 if necessary. 11/18/23 1508 <Electronically signed by Michele Kebede MD> Cosigner Signature (if applicable): CC: Dr. Daron Benotn MD ~ Signed [facility] Work Phone: 1(833) 512-585912-28-2023 History and physical note Author Sommer Resendiz [facility] November 15, 2023 3:44pm Note Date/Time November 15, 2023 3:14pm [facility] Medical Records Department [address] [place] [address] H&P Exam - Hospitalist 11/15/23 1512 MR#: [id number] Acct: [id number] Name: ANGÉLICA YO Rep #:[id number] 3 : 1955 68 From: Sommer Resendiz MD PCP: Dr. Daron Benton MD Status:ADM IN [place] [facility] HPI - General General Date of Admission: 11/15/23 Date of Service: 11/15/23 Chief Complaint: Poor intake, malaise, fatigue, weakness, N/V/D HPI Narrative The patient is a 68 y/o F w/ PMHx: Hx Cerebral aneurysm, Chronic pain syndrome, HTN, HLD, Hx TIA, Multiple Sclerosis, Nonobstructive CAD, Psoriatic arthritis, PAD, NS SVT, GERD, Hypothyroidism, Carotid disease, Tobacco use who presents to the [facility] ED on 11/15/23 with history of [...] x 1 and 1 L normal saline. [facility] Medical History Angina pectoris Bilateral carotid artery [...] Stomach morphine AdvReac Nausea Verified 11/15/23 11:27 Eyfbwmz-XNY-DlO Reductase AdvReac Nausea Verified 11/15/23 11:27 Inhibitor [Fdvfiuu-Std-Vsn Reductase Inhibitor] Family History Mother Cancer CAD [...] 70.4 H, Lymph % (Auto) 14.3 L, Randall % (Auto) 14.5 H, Eos % (Auto) [...] disease, Tobacco use who presents to the [facility] ED on 11/15/23 with history of [...] 16 minutes. Charges/Coding Visit Charges Inpatient E&M: 48623 Init Hosp L3 Procedures Hospitalists Procedures: 71910 Advncd Care Plan 30 Min 11/15/23 1544 <Electronically signed by Sommer Resendiz MD> Cosigner Signature (if applicable): CC: Dr. Sommer Resendiz MD; Dr. Daron Benton MD~ Signed [facility] Work Phone: 1(166) 406-593612-28-2023 Discharge summary Author Michele Kebede [facility] November 15, 2023 3:10pm Note Date/Time November 15, 2023 12:02pm [facility] Medical Records Department [address] [place] [address] Emergency Department Summary 11/15/23 MR#: [id number] Acct: [id number] Name: ANGÉLICA YO Rep #:[id number] 2 : 1955 68 From: Michele Kebede [...] because she cannot take the strong medications. [facility] Medical History Angina pectoris Bilateral [...] Stomach morphine AdvReac Nausea Verified 11/15/23 11:27 Xivfgad-NJQ-QwZ Reductase AdvReac Nausea Verified 11/15/23 11:27 Inhibitor [Iseodtb-Xgu-Xhh Reductase Inhibitor] Family History Mother Cancer CAD [...] 70.4 H Lymph % (Auto) 14.3 L Randall % (Auto) 14.5 H Eos % (Auto) [...] ventricular ectopy. No acuteST elevation or depression. WV interval, QRS duration are normal. QTc is [...] Provider] - Disposition Disposition: Acute Care Hospital [facility] What to do if you have Problems For any increased pain, shortness of breath, bleeding, nausea or vomiting, chestpain, or any unexpected problems, contact your Primary Care Provider. Call [facility] ([phone]) or report to the closest Emergency Room. Call 911 if necessary. 11/15/23 1510 <Electronically signed by Michele Kebede MD> Cosigner Signature (if applicable): CC: Dr. Daron Benton MD ~ Signed [facility] Work Phone: 1(814) 647-366212-28-2023 Discharge summary Author Michele Kebede [facility] November 15, 2023 3:10pm Note Date/Time November 15, 2023 12:02pm [facility] Medical Records Department [address] [place] [address] Emergency Department Summary 11/15/23 MR#: [id number] Acct: [id number] Name: ANGÉLICA YO Rep #:[id number] 2 : 1955 68 From: Michele Kebede MD PCP: Dr. Daron Benton MD Status:REG ER Location: ED [facility] History of Present Illness Chief Complaint: [...] because she cannot take the strong medications. [facility] Medical History Angina pectoris Bilateral [...] Stomach morphine AdvReac Nausea Verified 11/15/23 11:27 Nuyybze-VMV-MjD Reductase AdvReac Nausea Verified 11/15/23 11:27 Inhibitor [Uxnsril-Pcd-Xtc Reductase Inhibitor] Family History Mother Cancer CAD [...] 70.4 H Lymph % (Auto) 14.3 L Randall % (Auto) 14.5 H Eos % (Auto) [...] ventricular ectopy. No acuteST elevation or depression. WV interval, QRS duration are normal. QTc is [...] Provider] - Disposition Disposition: Acute Care Hospital [facility] What to do if you have Problems For any increased pain, shortness of breath, bleeding, nausea or vomiting, chestpain, or any unexpected problems, contact your Primary Care Provider. Call [facility] ([phone]) or report to the closest Emergency Room. Call 911 if necessary. 11/15/23 1510 <Electronically signed by Michele Kebede MD> Cosigner Signature (if applicable): CC: Dr. Daron Benton MD ~ Signed [facility] Work Phone: 1(697) 422-142911-17-2023 History of Present illness Narrative* Kristopher Main MD - 10/05/2023 3:00 PM EST Images from the original note were not included. [facility] [address] [address] [facility] [address] Dept: [phone] Dept Loc: [phone] Patient was seen today via Telehealth by [...] stated that they are [facility] in the [facility]. If the patient is a minor,permission has [...] TSH VITAMIN B12: No results found for: FINEQXWZ03 No results found for: PHENYTOIN, PHENOBARB, VALPROATE, CBMZ No results found for: LEVETIRACETA, FERRITIN, CRP, DENNIS, ANCA FERRITIN: No results found for: FERRITIN @RESULTINGLABINFO@ No components found for: TOPIRA No results found for: CHRISTIANO, IMMUNOGLOBUL, OLIGOBANDS No results found for: XOM22HP, HEPCAB No results found for: CRP, ANATITER, ANCA ---- @LASTAPPOINTMENTTHISPROV@ ECG 12 lead SINUS BRADYCARDIA PROBABLE LEFT ATRIAL ABNORMALITY No previous ECG available for comparison Electronically Signed On 04-05-2023 7:42:10 EDT by Juvenal Benton Patient Name: ANG[facility]LICA [facility]O : 1955 [id number] Exam Date/Time: 04/04/2023 15:32 Procedure: CT HEAD [...] volume rendered reformats were obtained using a [employer] workstation. Review of the axial source data [...] of the major intracranial arteries at the [place]. 6. No hemodynamically significant narrowing [...] and arranging for studies. documented in this [facility]11-17-2023 Telephone encounter Note* Telephone Encounter - Yanely Kwon MA - 10/05/2023 12:58 PM EST Patient has been scheduled and records are being faxed over. [id number] Miscellaneous Notes* Telephone Encounter - Yanely Kwon MA - 10/05/2023 12:58 PM EST Patient has been scheduled and records are being faxed over. * Telephone Encounter - Kristopher Main MD - 10/05/2023 12:36 PM EST Get records from [facility]. OK to add her on at 3 PM as a real or a virtual visit * Telephone Encounter - Ольга Pa - 10/05/2023 9:20 AM EST Name of caller: Angélica Contact phone number: [phone] Relationship to Patient: patient Provider: DR Main Practice: [facility] Chief Complaint/Reason for Call: pt was at [facility] yesterday for an MS attack she is asking for IV steroids order infusion. She was started at the hospital and will need additional steroids.Please advise when order placed. Best time of day caller can be reached: AM Patient advised that office/PCP has 24-48 business hours to return their call: Yes documented in this [place] [address]-17-2023 Telephone encounter Note* Telephone Encounter - Kristopher Main MD - 10/05/2023 12:36 PM EST Get records from [facility]. OK to add her on at 3 PM as a real or a virtual visit [facility] Nhdnec43-19-4052 Telephone encounter Note* Telephone Encounter - Ольга Pa - 10/05/2023 9:20 AM EST Name of caller: Angélica Contact phone number: [phone] Relationship to Patient: patient Provider: DR Main Practice: [facility] Chief Complaint/Reason for Call: pt was at [facility] yesterday for an MS attack she is asking for IV steroids order infusion. She was started at the hospital and will need additional steroids.Please advise when order placed. Best time of day caller can be reached: AM Patient advised that office/PCP has 24-48 business hours to return their call: Yes [facility] Mgsqij74-91-2016 Telephone encounter Note* Telephone Encounter - Annalee Ram - 06/15/2023 9:41 AM EDT Medication name: baclofen (Lioresal) 20 MG tablet [[id number]] Order Details Dose: 20 mg Route: Oral [...] Original Order: baclofen (Lioresal) 20 MG tablet [[id number]] Providers Ordering and Authorizing Provider: Kristopher Main MD NEGRA #: [id number] Ordering User: Kristopher Main MD Pharmacy [id number] [address] [address] NEGRA #: -- Date of last office visit: 04/04/23 Date of next office visit: None Date of last refill: (see medication tab): 10/05/22 Updated/Validated preferred pharmacy: Yes Patient instructed to contact the pharmacy prior to picking up the medication: Yes [facility] HospitalZfnxab32-09-8592 Miscellaneous Notes* Telephone Encounter - Annalee Ram - 06/15/2023 9:41 AM EDT Medication name: baclofen (Lioresal) 20 MG tablet [[id number]] Order Details Dose: 20 mg Route: Oral [...] Original Order: baclofen (Lioresal) 20 MG tablet [[id number]] Providers Ordering and Authorizing Provider: Kristopher Main MD NEGRA #: [id number] Ordering User: Kristopher Main MD Pharmacy [id number] [place] [id number] NEGRA #: -- Date of last office visit: 04/04/23 Date of next office visit: None Date of last refill: (see medication tab): 10/05/22 Updated/Validated preferred pharmacy: Yes Patient instructed to contact the pharmacy prior to picking up the medication: Yes documented in this [facility]SMiami [facility] HospitalMylwkg04-32-3945 Telephone encounter Note* Telephone Encounter - Kristopher Main MD - 06/04/2023 4:04 PM EDT Rx renewed [facility] HospitalEykcjq95-74-6685 Miscellaneous Notes* Telephone Encounter - Kristopher Main [...] up the medication: Yes documented in this encounterSMiami Valley HospitalFyuocl56-01-6318 Telephone encounter Note* Telephone Encounter - Bina Snow - 06/04/2023 3:31 PM EDT Please advise. [facility] OrganismsQafrss63-06-8841 Telephone encounter Note* Telephone Encounter - Jeni [...] to picking up the medication: Yes [facility] Nvvzsg89-27-2788 Hospital Discharge instructions Additional Instructions 1. Do not place an Jean-Claude wrap on your foot this probably contributed to the swelling. 2. Apply ice to calf 6-10 times a day for the next 3 to 5 daysW[facility] Work Phone: 1(375) 695-573112-22-2022 Hospital Discharge instructions Patient Education 11/09/2022 12:48:32 [...] and water are not available, use hand substation design draftsperson. ?Change your dressing as told by your [...] the contrast dye from your body. Take whfg-ctc-uptnbpt and prescription medicines only as told by [...] 05/24/2006 Document Revised: 10/18/2018 Document Reviewed: 10/10/2017 [employer] Patient Education 2020 [employer]. 11/09/2022 12:48:21 Moderate Conscious Sedation, Adult, Care [...] until you are awake and alert. Take wmlp-frw-qcjgwfw and prescription medicines only as told by [...] 08/26/2014 Document Revised: 10/18/2018 Document Reviewed: 02/24/2017 [employer] Patient Education 2020 [employer] Language. Follow Up Care 10/27/2022 15:58:56 With:TYE BARNETT MD, [facility], Surgery, Vascular Surgeons Address: [facility] [address] [place] [address] When: Unknown Comments:Follow-up as scheduled [facility] 12-22-2022 Summary of episode note Discharge Instructions Thank you for allowing [facility] to assist you with your healthcare needs. The following is importantdischarge information regarding your hospital visit. 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 ? Change your dressing as told by [...] the contrast dye from your body. Take knek-qkc-dyklako and prescription medicines only as told by [...] 05/24/2006 Document Revised: 10/18/2018 Document Reviewed: 10/10/2017 [employer] Patient Education 2020 App[employer] Inc. Moderate Conscious Sedation, Adult, Care After [...] until you are awake and alert. Take wlke-hfo-xooaoys and prescription medicines only as told by [...] 08/26/2014 Document Revised: 10/18/2018 Document Reviewed: 02/24/2017 [employer] Patient Education 2020 [employer] Inc. Additional Information VACCINATE! IT SAVES LIVES! Members of the community who have not yet received the COVID-19 vaccine and would like to receive it can visit one of [facility] vaccine clinics. There are many vaccine clinic locations within the [facility]. For locations and available times, please visit https://gettheshot.coronavirus.[place].gov/. It is important to note that some COVID mobile vaccine clinics are held outdoors and may be canceled in rainy or stormy conditions. To learn more about pediatric vaccinations (ages 5-11), we invite you to visit the [facility] webpage. https://www.akronHotreaders.org/pages/1274-Bwbjk-Vdnggmhuvda-Amyyaiynsi-Ibzac-Axq stions.htmlTo learn more about the COVID-19 vaccine, we invite you to visit the [facility] website for a list of frequently asked questions. https://severnBumpr/assets/Pksywmoz-zkf-Ztwcurdb/leeju-Ryilkax-Mgulnahnet _Asked-Questions.pdf [facility] Patient Portal Access Instructions: Stay connected with your healthcare team and access your personal medical information anytime with the [facility] Patient Portal.If you would like a full copy of your medical records, please contact the [facility] Medical Records Department, Sunday through Sunday between 8a.m. and 4:30p.m. Please follow the directions below to access the portal: 1.Access the email account you provided upon registration to the [facility].2.Look for an invitation email from [facility].3.Open the email and access the invitation link: Accept Invitation to [facility]4.Fill in the required duarte to [...] you will allow to register on the [facility] Patient Portal for access to your information. You can also access the [facility] Patient Portal on the [employer] jennifer. Simply click on Health Records under [...] Call your local pharmacy or go to http://bit.ly/8E6Fa5g to find one close to you.3.Make use of household items: Use cat litter or old coffee grounds to dispose medications if other options arenot available. Mix your drugs with these household products, seal them in an airtight container andthrow it into the garbage. Call [facility]: [phone] to be sure your drugs can be [...] aware that I should contact my doctor. 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 [facility] [id number] Note ORIGINAL Images acquired, not reported on this accession number.[facility] 04-12-2021 NoteHNO ID: [id number] Author: RT Sandra(R) Service: ? Author Type: [facility] Hand Type: Progress Notes Filed: 04/12/2021 2:14 PM [...] Yo DATE: April 12, 2021 TIME: 2:13 [facility]03-24-2021 NoteHNO ID: [id number] Author: Meli Gore Service: ? Author Type: [...] of wound at high risk for bone exposure.[facility]01-07-2021 History of Present illness Narrative* Tammy Cornejo (Rt), [facility] - 11/25/2020 3:10 PM EST Radiology [...] 25, 2020 3:08 PM documented in this encounterEast Liverpool City Hospitallt note Author Noa Raza [facility] November 16, 2023 10:43am Note Date/Time November 16, 2023 10:43am [facility] Medical Records Department [address] [place] [address] Counseling Note - Pharmacy 11/16/23 1043 MR#: [id number] Acct: [id number] Name: ANGÉLICA YO Rep #:[id number] 0 : 1955 68 From: Noa Raza PCP: Dr. Daron Benton MD Status:ADM IN Y Location: [place] [address] Pharmacy [place] Med Reconciliation Pharmacy Service has performed discharge [...] Signature (if applicable): Date CC: ~ Signed [facility] Work Phone: Consult note Author Christel Miranda [facility] November 21, 2023 11:56am Note Date/Time November 21, 2023 11 :56am [facility] Medical Records Department [address] [place] [address] Counseling Note - Pharmacy 11/21/23 1155 MR#: [id number] Acct: [id number] Name: ANGÉLICA YO Rep #:[id number] 2 : 1955 68 From: Christel Miranda PCP: Dr. Daron Benton MD Status:ADM IN Location: [place] [id number] Pharmacy Service has performed discharge medication [...] Signature (if applicable): Date CC: ~ Signed [facility] Work Phone: Consult note Author Christel Miranda [facility] February 25, 2024 4:09pm Note Date/Time February 25, 2024 4:08 pm [facility] Medical Records Department [address] [place] [address] Counseling Note - Pharmacy 02/25/24 1607 MR#: [id number] Acct: [id number] Name: ANGÉLICA YO Rep #:[id number] 2 : 1955 68 From: Christel Miranda PCP: Dr. Daron Benton MD Status:ADM IN Y Location: [place] [address] Pharmacy [facility] Pharmacy Service has performed discharge medication [...] Signature (if applicable): Date CC: ~ Signed [facility] Work Phone: Consult note Author Christel Miranda [facility] Note Date/Time April 22, 2025 4:00p m [facility] Medical Records Department [address] [place] [address] Counseling Note - Pharmacy 04/22/25 1559 MR#: [id number] Acct: [id number] Name: ANGÉLICA YO Rep #:[id number] 8 : 1955 69 From: Christel Miranda PCP: Dr. Daron Benton MD Status:ADM IN Location[facility]4 Pharmacy [facility] Counseling Pharmacy Service has performed discharge [...] Signature (if applicable): Date CC: ~ Signed [facility] Work Phone: Discharge summary Author Hi Garcia [facility] November 16, 2023 10:38am Note Date/Time November 16, 2023 10:33am [facility] Medical Records Department [address] [place] [address] Instructions for Home/Discharge Instructions 11/16/23 1032 MR#: [id number] Acct: [id number] Name: ANGÉLICA YO Rep #:[id number] 1 : 1955 68 From: Hi Llanos [...] MD; Dr. Daron Benton MD ~ Signed [facility] Work Phone: Discharge summary Author [facility] November 16, 2023 10:51am Note Date/Time November 16, 2023 10:50am [facility] Medical Records Department [address] [place] [address] Discharge Summary 11/16/23 1043 MR#: [id number] Acct: [id number] Name: ANGÉLICA YO Rep #:[id number] 7 : 1955 68 From: Hi Llanos PCP: Dr. Daron Benton MD Status:ADM IN Location: [place] [address]1 Providers Date of Admission: 11/15/23 Date of [...] 70.4 H, Lymph % (Auto) 14.3 L, Randall % (Auto) 14.5 H, Eos % (Auto) [...] Sl. Cloudy, Urine pH 5.0, Ur Specific Wil[place] 1.015, Urine Protein 15 H, Urine Glucose [...] Neut % (Auto) 57.7, Lymph % (Auto) 25.5,Randall % (Auto) 15.7 H, Eos % (Auto) [...] 13:03 EST Reading Location ID and State: [facility] / [place] Tel , Service support , D/C Instructions [...] to go home. Visit Charges Inpatient E&M: 46230 Disch Hosp >30min 11/16/23 1051 <Electronically signed by Hi Garcia MD> Cosigner Signature (if applicable): CC: Dr. Daron Benton MD; Dr. Hi Garcia MD~ Signed [facility] Work Phone: Discharge summary Author Sachin Murillo [facility] November 21, 2023 11:01am Note Date/Time November 21, 2023 11 :01am [facility] Medical Records Department [address] [place] [address] Discharge Summary 11/21/23 1057 MR#: [id number] Acct: [id number] Name: ANGÉLICA YO Rep #:[id number] 1 : 1955 68 From: Sachin chan MD PCP: Dr. Daron Benton MD Status:ADM IN Location: [place] [address] Providers Date of Admission: 11/18/23 Primary Care [...] injury associated to now represents to the [facility] ED on 11/18/23 with history of [...] % (Auto) 62.0, Lymph % (Auto) 14.3L, Randall % (Auto) 18.8 H, Eos % (Auto) [...] Lindquist PA [Med Staff - [facility]] - 12/21/23 1:00 pm Disposition Disposition (needs filled in before D/C Order can be placed): Home, Self Care Charges/Coding Visit Charges Inpatient E&M: 54363 Disch Hosp >30min 11/21/23 1101 <Electronically signed by Sachin Murillo MD> Cosigner Signature (if applicable): CC: Dr. Daron Benton MD; Dr. Sachin Murillo MD~ Signed [facility] Work Phone: Discharge summary Author Sachin Murillo [facility] December 07, 2023 2:21pm Note Date/Time December 07, 2023 2 :21pm [facility] Medical Records Department [address] [place] [address] Discharge Summary 12/07/23 1417 MR#: [id number] Acct: [id number] Name: ANGÉLICA YO Rep #:[id number] 0 : 1955 68 From: Sachin chan MD PCP: Dr. Daron Betnon MD Status:ADM IN Location: ICU ICU02-1 Providers Date of Admission: 12/02/23 Primary Care Physician: Dr. Daron Benton MD Consultations 12/02/23 12:37 Consult: Tele-Neurology Routine Consulting Provider: [facility] Reason for Consult: Possible MS flareup EMERGENT Consult: No MD Notified: Yes Date Notified: 12/02/23 Time Notified: 11:39 Method of Notification: Answering Service Nursing Unit Staff Notify [facility] of Tele-Neurology Consult: Yes 12/04/23 06:18 Consult: Seasoning Mixer / Pulmonary Medicine Routine Consulting Provider: Intensivists/Pulmonary [...] 71.0 H, Lymph % (Auto) 17.9 L, Randall % (Auto) 9.8, Eos % (Auto) 0.1, [...] Health Service Charges/Coding Visit Charges Inpatient E&M: 69166 Disch Hosp >30min 12/07/23 1421 <Electronically signed by Sachin Murillo MD> Cosigner Signature (if applicable): CC: Dr. Daron Benton MD; Dr. Sachin Murillo MD~ Signed [facility] Work Phone: Evaluation + Plan note No data available for this section [facility] Evaluation note* Diagnosis Onset Date Resolution Status Effusion of left knee joint acute Left knee DJD acute Psoriatic arthritis acute Chronic pain chronic Peripheral vascular occlusive disease chronic Bilateral carotid artery stenosis chronic Essential (primary) hypertension chronic Nonobstructive atherosclerosis of coronary artery chronic Peripheral vascular occlusive disease chronic [facility] Work Phone: Evaluation note* Diagnosis Onset Date Resolution Status Peripheral vascular occlusive disease chronic Bilateral carotid artery stenosis chronic Essential (primary) hypertension chronic Nonobstructive atherosclerosis of coronary artery chronic Peripheral vascular occlusive disease chronic Bilateral carotid artery stenosis chronic Essential (primary) hypertension chronic Nonobstructive atherosclerosis of coronary artery chronic Peripheral vascular occlusive disease chronic [facility] Work Phone: Evaluation note* Diagnosis Onset Date Resolution Status Cardiac murmur acute Bilateral carotid artery stenosis chronic Essential (primary) hypertension chronic Nonobstructive atherosclerosis of coronary artery chronic Peripheral vascular occlusive disease chronic [facility] Work Phone: Evaluation noteNo assessment information available [facility] Work Phone: Evaluation note* Diagnosis Onset Date Resolution Status Effusion of left knee joint acute Left knee DJD acute Psoriatic arthritis acute Cardiac murmur acute [place] (dyspnea on exertion) ac bois forte Bilateral carotid artery stenosis chronic Essential (primary) hypertension chronic Nonobstructive atherosclerosis of coronary artery chronic Peripheral vascular occlusive disease chronic [facility] Work Phone: Evaluation note* Diagnosis Onset Date Resolution Status Effusion of left knee joint acute Left knee DJD acute Psoriatic arthritis acute Cardiac murmur acute TOLEDO (dyspnea on exertion) ac bois forte Bilateral carotid artery stenosis chronic Essential (primary) hypertension chronic Nonobstructive atherosclerosis of coronary artery chronic Peripheral vascular occlusive disease chronic Left knee DJD acute Psoriatic arthritis acute [facility] Work Phone: Evaluation note* Diagnosis Onset Date Resolution Status Effusion of left knee joint acute Left knee DJD acute Psoriatic arthritis acute Cardiac murmur acute [place]O (dyspnea on exertion) ac bois forte Bilateral carotid artery stenosis chronic Essential (primary) hypertension chronic Nonobstructive atherosclerosis of coronary artery chronic Peripheral vascular occlusive disease chronic Left knee DJD acute Psoriatic arthritis acute 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 Effusion of left knee joint acute Left knee DJD acute Psoriatic arthritis acute [facility] Work Phone: Evaluation note* Diagnosis Onset Date Resolution Status Left knee DJD acute Psoriatic arthritis acute 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 Effusion of left knee joint acute Left knee DJD acute Psoriatic arthritis acute [facility] Work Phone: Evaluation note* Diagnosis Onset Date Resolution Status 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 Effusion of left knee joint acute Left knee DJD acute Psoriatic arthritis acute Intercostal neuralgia acute Thoracic back pain acute [facility] Work Phone: Evaluation note* Diagnosis Onset Date Resolution Status Effusion of left knee joint acute Left knee DJD acute Psoriatic arthritis acute Intercostal neuralgia acute Thoracic back pain acute Psoriatic arthritis acute Thoracic back pain acute Multiple sclerosis chronic [facility] Work Phone: Evaluation note* Diagnosis Multiple sclerosis (HCC) Multiple sclerosis [facility]* Diagnosis Multiple sclerosis (HCC) Multiple sclerosis documented [facility]* Diagnosis Onset Date Resolution Status Psoriatic arthritis acute Thoracic back pain acute Multiple sclerosis chronic Bilateral carotid artery stenosis chronic Essential (primary) hypertension chronic Nonobstructive atherosclerosis of coronary artery chronic Peripheral vascular occlusive disease chronic [facility] Work Phone: Evaluation note* Diagnosis Onset Date Resolution Status Bilateral carotid artery stenosis chronic Essential (primary) hypertension chronic Nonobstructive atherosclerosis of coronary artery chronic Peripheral vascular occlusive disease [facility] Work Phone: Evaluation note* Diagnosis Multiple sclerosis (HCC)- Primary Multiple sclerosis Cerebrovascular disease, unspecified Primary hypertension Unspecified essential hypertension documented in this encounter [facility]* Diagnosis Onset Date Resolution Status Knee joint effusion acute [facility] Work Phone: Evaluation note* Diagnosis Onset Date Resolution Status Knee joint effusion acute Bilateral carotid artery stenosis chronic Essential (primary) hypertension chronic Nonobstructive atherosclerosis of coronary artery chronic Peripheral vascular occlusive disease chronic Acute hyponatremia acute Acute kidney injury acute Dehydration acute Influenza A acute [facility] Work Phone: Evaluation note* Diagnosis Onset Date Resolution Status Knee joint effusion acute Bilateral carotid artery stenosis chronic Essential (primary) hypertension chronic Nonobstructive atherosclerosis of coronary artery chronic Peripheral vascular occlusive disease chronic Acute hyponatremia acute Acute kidney injury acute Dehydration acute Influenza A acute Atrial fibrillation acute Chest pressure acute Elevated troponin acute Influenza A acute New onset atrial fibrillation acute [facility] Work Phone: Evaluation note* Diagnosis Onset Date Resolution Status Knee joint effusion acute Bilateral carotid artery stenosis chronic Essential (primary) hypertension chronic Nonobstructive atherosclerosis of coronary artery chronic Peripheral vascular occlusive disease chronic Acute kidney injury acute Acute hyponatremia resolved Dehydration resolved Atrial fibrillation acute Chest pressure acute Elevated troponin acute New onset atrial fibrillation acute [facility] Work Phone: Evaluation note* Diagnosis Onset Date Resolution Status Knee joint effusion acute Bilateral carotid artery stenosis chronic Essential (primary) hypertension chronic Nonobstructive atherosclerosis of coronary artery chronic Peripheral vascular occlusive disease chronic Acute kidney injury acute Acute hyponatremia resolved Dehydration resolved Atrial fibrillation acute Chest pressure acute Elevated troponin acute New onset atrial fibrillation acute Weakness acute [facility] Work Phone: Evaluation note* Diagnosis Onset Date Resolution Status Knee joint effusion acute Bilateral carotid artery stenosis chronic Essential (primary) hypertension chronic Nonobstructive atherosclerosis of coronary artery chronic Peripheral vascular occlusive disease chronic Acute kidney injury acute Acute hyponatremia resolved Dehydration resolved Atrial fibrillation acute Chest pressure acute Elevated troponin acute New onset atrial fibrillation acute Dizziness acute Weakness acute Multiple sclerosis chronic [facility] Work Phone: Evaluation note* Diagnosis Multiple sclerosis [...] hypertension chronic Peripheral vascular occlusive disease chronic [facility] Work Phone: Evaluation note* Diagnosis Multiple sclerosis [...] (primary) hypertension chronic Peripheral vascular occlusive disease [facility] Work Phone: Evaluation note* Diagnosis Onset Date [...] (primary) hypertension chronic Peripheral vascular occlusive disease [facility] Work Phone: Evaluation note* Diagnosis Onset Date [...] symptoms of anemia resolved Symptomatic anemia resolved [facility] Work Phone: Evaluation note* Diagnosis Cough [facility] [place] [facility] Diagnosis Other specified symptoms and signs involving the circulatory and respiratory systems- Primary Cerebrovascular disease, unspecified documented in this encounter [facility]* Diagnosis Multiple sclerosis (HCC) Multiple sclerosis documented in this encounter [facility]* Diagnosis Multiple sclerosis (HCC)- Primary Multiple sclerosis Mild cognitive impairment Mild cognitive impairment, so stated Fatigue, unspecified type Deficiency of multiple nutrient elements Other nutritional deficiency documented in this encounter [facility]* Diagnosis Multiple sclerosis (HCC)- Primary Multiple sclerosis Dysphasia Other speech disturbance [facility] Author Sommer Resendiz [facility] November 15, 2023 3:44pm Note Date/Time November 15, 2023 3:14pm [facility] Medical Records Department [facility] [place] [address] H&P Exam - Hospitalist 11/15/23 1512 MR#: [id number] Acct: [id number] Name: ANGÉLICA YO Rep #:[id number] 3 : 1955 68 From: Sommer Resendiz MD PCP: Dr. Daron Benton MD Status:ADM IN [place] [id number] HPI - General General Date of Admission: 11/15/23 Date of Service: 11/15/23 Chief Complaint: Poor intake, malaise, fatigue, weakness, N/V/D HPI Narrative The patient is a 68 y/o F w/ PMHx: Hx Cerebral aneurysm, Chronic pain syndrome, HTN, HLD, Hx TIA, Multiple Sclerosis, Nonobstructive CAD, Psoriatic arthritis, PAD, NS SVT, GERD, Hypothyroidism, Carotid disease, Tobacco use who presents to the [facility] ED on 11/15/23 with history of [...] x 1 and 1 L normal saline. [facility] Medical History Angina pectoris Bilateral carotid artery [...] Stomach morphine AdvReac Nausea Verified 11/15/23 11:27 Juphyza-PPI-ApX Reductase AdvReac Nausea Verified 11/15/23 11:27 Inhibitor [Vxosniy-Qxj-Obb Reductase Inhibitor] Family History Mother Cancer CAD [...] 70.4 H, Lymph % (Auto) 14.3 L, Randall % (Auto) 14.5 H, Eos % (Auto) [...] disease, Tobacco use who presents to the [facility] ED on 11/15/23 with history of [...] 16 minutes. Charges/Coding Visit Charges Inpatient E&M: 55536 Init Hosp L3 Procedures Hospitalists Procedures: 73014 Advncd Care Plan 30 Min 11/15/23 1544 <Electronically signed by Sommer Resendiz MD> Cosigner Signature (if applicable): CC: Dr. Sommer Resendiz MD; Dr. Daron Benton MD~ Signed [facility] Work Phone: History and physical note Author Roman Mckeon [facility] December 02, 2023 11:53am Note Date/Time December 02, 2023 1 1:43am [facility] Medical Records Department [address] [place] [address] H&P Exam - Hospitalist 12/02/23 1140 MR#: [id number] Acct: [id number] Name: ANGÉLICA YO Rep #:[id number] : 1955 68 From: Roman Mckeon MD PCP: Dr. Daron Benton MD Status:ADM IN Location: [address] HPI - General General Date of [...] to a monitored bed for further management [facility] Medical History Angina pectoris Bilateral carotid artery [...] Stomach morphine AdvReac Nausea Verified 11/26/23 12:47 Nsgrvvo-PNT-LdB Reductase AdvReac Nausea Verified 11/26/23 12:47 Inhibitor [Abjbygp-Tod-Unm Reductase Inhibitor] Family History Mother Cancer CAD [...] % (Auto) 56.3, Lymph % (Auto) 28.5, Randall % (Auto) 12.7 H, Eos % (Auto) [...] Clarity Clear, Urine pH 6.5, Ur Specific [place] 1.015, Urine Protein 15 H, Urine Glucose [...] 18 minutes. Charges/Coding Visit Charges Inpatient E&M: 57670 Init Hosp L3 Procedures Hospitalists Procedures: 47035 Advncd Care Plan 30 Min 12/02/23 1153 <Electronically signed by Roman Mckeon MD> Cosigner Signature (if applicable): CC: Dr. Roman Mckeon MD; Dr. Daron Benton MD~ Signed [facility] Work Phone: [facility] Work Phone: Hospital Discharge instructions Additional Instructions Please follow-up with your primary care doctor. If your pain gets worse you do not feel you can effectively take care of yourself at home please return to the emergency room. [facility] Work Phone: Hospital Discharge instructions Additional Instructions [...] any further concerns or worsening of symptoms [facility] Work Phone: Hospital Discharge instructions Additional Instructions Continue following up outpatient. You need to follow-up with your PCP, make them aware that you no longer taking her Eliquis. Return for any worsening symptoms. Chest x-ray was clear today.[facility] Work Phone: Hospital Discharge instructions Additional Instructions Labs and CAT scan today showed no significant changes in the past. No signs of acute stroke. Call and follow-up with your primary care physician if this is not improving you and he can discuss further imaging of your neck to see if you may have a pinched nerve.[facility] Work Phone: Hospital Discharge instructions Additional Instructions In 2019, Dr. 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 Make an appointment to see him as soon as possible to have this reevaluated.[facility] Work Phone: Hospital Discharge instructions Additional Instructions [...] you are at risk of getting internal bleeding.[facility] Work Phone: Hospital Discharge instructions Additional Instructions [...] any further concerns or worsening of symptoms. [facility] Work Phone: Progress note Author Kevin Friend [facility] Note Date/Time April 22, 2025 5:49p m [facility] Medical Records Department [address] [place] [address] Progress Note 04/22/25 1747 MR#: [id number] Acct: [id number] Name: ANGÉLICA YO Rep #:[id number] : 1955 69 From: Kevin Friend DO PCP: Dr. Daron Benton MD Status:ADM IN Location: [facility] [id number] Progress Note Patient is doing well today. [...] for further workup Visit Charges Inpatient E&M: 34012 Subs Hosp L3 04/22/25 1749 <Electronically signed by Kevin Gonzalez DO> Kevin Gonzalez DO Cosign Signature (if applicable): CC: ~ Signed [facility] Work Phone: Reason for referral (narrative)* Consultation (Routine) - Pending Review Specialty Diagnoses / Procedures Referred By Hillary christie Referred To Contact Ophthalmology Diagnoses Vision disturbance Procedures [place] OFFICE/OUTPATIENT [facility] 60 MINUTES Lizz Lynn APRN - CNP [address] [place] [address] Cecilio Gibbs MD [address] [place] [address] Referral ID Status Reason Start Date Expiration Date Visits Requested Visits Authorized [id number] Pending Review Specialty Services Required 12/14/2023 12/13/2024 1 1 * Therapy (Routine) - Pending Review Specialty Diagnoses / Procedures Referred By Hillary t Referred To Contact Physical Therapy Diagnoses Dizziness Imbalance Procedures [place]OUTPATIENT NEW HIGH MDM 60 MINUTES Lizz Lynn APRN - CNP [address] [place] [address] Referral ID Status Reason Start Date Expiration Date Visits Requested Visits Authorized [id number] Pending Review Eval and Treat 12/14/2023 06/11/2024 99 99 Scheduling Instructions Twice weekly x 4 weeks for dizziness and imbalance [facility]arrative)No reason for referral information availableWSelect [facility] Work Phone: Summary Purpose Family History Relationship [...] No February 17, 2022 9:49pm Power of Manager Customer Service No February 17 2 9:49pm Advance Directive Response Recorded Date/ Time Advance Directives No January 18 8:11am Living Will No February 18, 2022 4:14am Power of Manager Customer Service No February 18 2 4:14am Advance Directive Response Recorded Date/ Time Advance Directives No January 18 8:11am Living Will No February 20, 2022 4:54pm Power of Manager Customer Service No February 20 2 4:54pm Advance Directive Response Recorded Date/ Time Advance Directives No January 18 7:11am Living Will No February 20, 2022 3:54pm Power of Manager Customer Service No February 20 2 3:54pm Advance Directive Response Recorded Date/ Time Advance Directives No January 18 7:11am Living Will No November 24 3 11:31pm Power of Manager Customer Service No November 24 023 11:31pm Advance Directive Response Recorded Date/ Time Advance Directives No January 18 8:11am Living Will No November 25 12:31am Power of Manager Customer Service No November 25, 2 023 12:31am Advance Directive Response Recorded Date/ Time Advance Directives No January 18 8:11am Living Will No March 16, 2023 12:46pm Power of Manager Customer Service No March 16 12:46pm Advance Directive Response Recorded Date/ Time Advance Directives No January 18 8:11am Living Will No March 31, 2023 1 2:40pm Power of Manager Customer Service No March 31, 2023 12:40pm Advance Directive Response Recorded Date/ Time Advance Directives No January 18 8:11am Living Will No April 08, 2023 9 :22am Power of Manager Customer Service No April 08, 2023 9:22am Advance Directive Response Recorded Date/ Time Advance Directives No January 18 7:11am Living Will No October 05 023 12:50am Power of Manager Customer Service No October 05, 2023 12:50am Advance Directive Response Recorded Date/ Time Advance Directives No January 18 7:11am Living Will No November 15, 2 023 11:28am Power of Manager Customer Service No November 15, 2023 11:28am Advance Directive Response Recorded Date/ Time Advance Directives No January 18 7:11am Living Will No November 15 2 023 4:24pm Power of Manager Customer Service No November 15, 2023 4:24pm Advance Directive Response Recorded Date/ Time Advance Directives No January 18 7:11am Living Will No November 18 2 023 11:47am Power of Manager Customer Service No November 18, 2023 11:47am Advance Directive Response Recorded Date/ Time Advance Directives No January 18 7:11am Living Will No November 18 2 023 3:44pm Power of Manager Customer Service No November 18, 2023 3:44pm Advance Directive Response Recorded Date/ Time Advance Directives No January 18 7:11am Living Will No November 26 1:53pm Power of Manager Customer Service No November 26 2 024 1:53pm Advance Directive Response Recorded Date/ Time Advance Directives No January 18 7:11am Living Will No November 27 9:06am Power of Manager Customer Service No November 27 024 9:06am Advance Directive Response Recorded Date/ Time Advance Directives No January 18 7:11am Living Will No December 02 6:38am Power of Manager Customer Service No December 02, 2023 6:38am Advance Directive Response Recorded Date/ Time Advance Directives No January 18 7:11am Living Will No December 02 12:37pm Power of Manager Customer Service No December 02, 2023 12:37pm Advance Directive Response Recorded Date/ Time Advance Directives No January 18 7:11am Living Will No January 18, 2024 10:25am Power of Manager Customer Service No January 17 10:25am Advance Directive Response Recorded Date/ Time Advance Directives No January 18 8:11am Living Will No February 19, 2024 10:57am Power of Manager Customer Service No February 18 10:57am Advance Directive Response Recorded Date/ Time Advance Directives No January 18 8:11am Living Will No February 19, 2024 5:33pm Power of Manager Customer Service No February 18 5:33pm Advance Directive Response Recorded Date/ Time Living Will No December 17 11:30am Do you have a Healthcare Power of Manager Customer Service? No December 17, 2024 11:30am Do you have a Healthcare Power of Manager Customer Service? No April 02, 2025 7:26pm Living Will No December 09 3:59pm Do you have a Healthcare Power of Manager Customer Service? No December 09, 2024 3:59pm Living Will No January 11 025 2:51am Do you have a Healthcare Power of Manager Customer Service? No January 11, 2025 2:51am Advance Directives No January 18 8:11am Advance Directive Response Recorded Date/ Time Do you have a Healthcare Power of Manager Customer Service? No April 02, 2025 7:26pm Do you have a Healthcare Power of Manager Customer Service? No April 11, 2025 1:19pm Living Will No January 11 2 025 2:51am Do you have a Healthcare Power of Manager Customer Service? No January 11, 2025 2:51am Do you have a Healthcare Power of Manager Customer Service? No April 17, 2025 10:20pm Advance Directives No January 18 8:11am Advance Directive Response Recorded Date/ Time Do you have a Healthcare Power of Manager Customer Service? No April 02, 2025 7:26pm Do you have a Healthcare Power of Manager Customer Service? No April 11, 2025 1:19pm Do you have a Healthcare Power of Manager Customer Service? No April 18, 2025 6:43pm Living Will No January 11 025 2:51am Do you have a Healthcare Power of Manager Customer Service? No January 11, 2025 2:51am Do you have a Healthcare Power of Manager Customer Service? No April 17, 2025 10:20pm Advance Directives No January 18 8:11am Advance Directive Response Recorded Date/ Time Do you have a Healthcare Power of Manager Customer Service? No April 02, 2025 7:26pm Do you have a Healthcare Power of Manager Customer Service? No April 11, 2025 1:19pm Do you have a Healthcare Power of Manager Customer Service? No April 18, 2025 9:53pm Living Will No January 11 025 2:51am Do you have a Healthcare Power of Manager Customer Service? No January 11, 2025 2:51am Do you have a Healthcare Power of Manager Customer Service? No April 17, 2025 10:20pm Advance Directives No January 18 8:11am Advance Directive Response Recorded Date/ Time Do you have a Healthcare Power of Manager Customer Service? No April 02, 2025 7:26pm Do you have a Healthcare Power of Manager Customer Service? No April 11, 2025 1:19pm Do you have a Healthcare Power of Manager Customer Service? No April 18, 2025 9:53pm Do you have a Healthcare Power of Manager Customer Service? No April 17, 2025 10:20pm Advance Directives [...] Weakness Weakness Weakness Weakness Weakness Weakness S/P [facility] 11/21/23 DIZZINESS,IMBALANCE/RX HERE fall Reason for [...] Weakness Weakness Weakness Weakness Weakness Weakness S/P [facility] 11/21/23 DIZZINESS,IMBALANCE/RX HERE fall FALL, HEAD [...] Weakness Weakness Weakness Weakness Weakness Weakness S/P [facility] 11/21/23 DIZZINESS,IMBALANCE/RX HERE fall FALL, HEAD [...] Weakness Weakness Weakness Weakness Weakness Weakness S/P [facility] 11/21/23 DIZZINESS,IMBALANCE/RX HERE fall FALL, HEAD [...] Weakness Weakness Weakness Weakness Weakness Weakness S/P [facility] 11/21/23 DIZZINESS,IMBALANCE/RX HERE fall FALL, HEAD [...] pain December 17, 2024 1 0:12am S/P [facility] 12/11December 19, 2024 1 :16pm 3 [...] vascular occlusive disease Javan goyal 2024 1:16pm 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 F ebruary 2024 1:52pm Hypoxemia December 24, 2024 1 :52pm Emphysema of lung December 24, 2024 1 :52pm Nicotine dependence, cigarettes, uncompl icated December 24, 2024 1:52pm Smoking greater than 30 pack years 2024 1:52pm Atherosclerotic heart diseas e of [place] coronary artery without angina pectoris January 10, [...] 2024 1:14pm Chief Complaint Admit Date S/P [facility] 12/11December 19, 2024 1 :16pm 3 [...] vascular occlusive disease Javan goyal 2024 1:16pm Yjdod-2-puoqrwpyzbz deficiency carrier F ebruary 2024 1:52pm Hypoxemia December 24, 2024 1 :52pm Emphysema of lung December 24, 2024 1 :52pm Nicotine dependence, cigarettes, uncompl icated December 24, 2024 1:52pm Smoking greater than 30 pack years Febru vince 2024 1:52pm Atherosclerotic heart diseas e of [place] coronary artery without angina pectoris January 10, [...] 2024 1:14pm Chief Complaint Admit Date S/P [facility] 12/11December 19, 2024 1 :16pm 3 [...] vascular occlusive disease Ja nuary 2024 1:16pm Hnvtv-9-gegufjmwusl deficiency carrier F ebruary 2024 1:52pm Hypoxemia December 24, 2024 1 :52pm Emphysema of lung December 24, 2024 1 :52pm Nicotine dependence, cigarettes, uncompl icated December 24, 2024 1:52pm Smoking greater than 30 pack years Febru 2024 1:52pm Atherosclerotic heart diseas e of [place] coronary artery without angina pectoris January 10, [...] 12:30 pm Reason for Visit Admit Date Wfzoz-2-qiniuuaahyo deficiency carrier F ebruary 2024 1:52pm Hypoxemia December 24, 2024 1 :52pm Emphysema of lung December 24, 2024 1 :52pm Nicotine dependence, cigarettes, uncompl icated December 24, 2024 1:52pm Smoking greater than 30 pack years [email or web address] 1:52pm Atherosclerotic heart diseas e of [place] coronary artery without angina pectoris January 10, [...] Smoking greater than 30 pack years Reginaldu vinec 2024 11:45pm Mitral stenosis February 20, 2025 [...] Admit Date Atherosclerotic heart diseas e of [place] coronary artery without angina pectoris January 10, [...] bilateral Kristopher Main MD [address] [place] [address] Referral ID Status Reason Start Date Expiration Date Visits Requested Visits Authorized [id number] Pending Review Perform Procedure 2 03/02/2023 1 1 Additional Source Comments INFORMATION SOURCE (unrecogn ized section and content) DATE CREATED AUTHOR 05/13/2018 [facility]ical Center DATE CREATED AUTHOR AUTHOR'S ORGANIZ ATION 05/13/2018 [facility] DATE CREATED AUTHOR AUTHOR'S ORGANIZ ATION 12/13/2021 [facility] DATE CREATED AUTHOR AUTHOR'S ORGANIZ ATION 01/16/2024 [facility] ([place]) DATE CREATED AUTHOR AUTHOR'S ORGANIZ ATION 05/08/[address] [facility] DATE CREATED AUTHOR AUTHOR'S ORGANELVIE ATION 05/18/2025 [facility] Goals (unrecognized section and content) Goals may [...] Primary Care Provider, Attending P rovider Active Splitter Machine Relationship Specialty Start Date End Date Daron Benton [address] [facility] [address] [place] [address] PCP - General 06/23/20 Splitter Machine Relationship Specialty Start Date End Date Daron Benton [address] [facility] [address] [place] [address] PCP - General 06/23/20 Splitter Machine Relationship Specialty Start Date End Date Daron Benton [address] [facility] [address] [place] [address] PCP - General 06/23/20 Team Status: Inactive [...] Dr. Yasmani Haynes DO Emergency Provider Active Splitter Machine Relationship Specialty Start Date End Date Daron Benton [address] [facility] [address] [place] [address] PCP - General 06/23/20 Team Status: Inactive [...] Simpson DO Emergency Provider Active Dr. Roman cMkeon MD Admit Provider, Other Provider A ctive [...] Davidson MD Other Provider Active Dr. Sachin Mruillo MD Attending Provider, Other Provider Active Team [...] Silvino Schmidt MD Other Provider Active Dr. iRma Riggins MD Other Provider Active Dr. Sarkis [...] Active Keyona Davidson MD Other Provider Active Splitter Machine Relationship Specialty Start Date End Date Daron Benton [address] [place] [phone] PCP - General 06/23/20 Team Status: Active [...] Smiley MD Attending Provider, Referring Provider Active Splitter Machine Relationship Specialty Start Date End Date Daron Benton MD [address] [place], [place] [id number] PCP - General Family Medicine 03/12/19 Tye Barnett MD [address] [facility] [address] [place] [address] Vascular Surgery 12/22/17 Splitter Machine Relationship Specialty Start Date End Date Daron Benton [address] [facility] [address] [place] [phone] PCP - General 06/23/20 Splitter Machine Relationship Specialty Start Date End Date Daron Benton [address] [facility] [address] [place] [phone] PCP - General 06/23/20 Splitter Machine Relationship Specialty Start Date End Date Daron Benton [address] [facility] [address] [place] [phone] PCP - General 06/23/20 Splitter Machine Relationship Specialty Start Date End Date Daron Benton [address] [place] [address] PCP - General 06/23/20 Team Status: Active [...] 19, 2024 End: December 19, 2024 Dr. Daorn Benton MD Referring Provider Active St art: [...] Active St art: January 11, 2025 Dr. Carlo sA Parikh MD Other Provider Active Star t: [...] 2025 End: March 19, 2025 Dr. Orlando aJcob MD Other Provider Active Start : March [...] April 02, 2025 End: April 02, 2025 Splitter Machine Relationship Specialty Start Date End Date Alex Bentonic Danielle [address] [place] [phone] PCP - General 06/23/20 Team Status: Inactive [...] Active Star t: April 21, 2025 Dr. Keivn Gonzalez DO Attending Provider Active Start: April [...] 2025 End: May 06, 2025 Iona Bradley TRAVELING REPRESENTATIVE-C Attending Provider Active Start: May 06, 2025 End: May 06, 2025 Splitter Machine Relationship Specialty Start Date End Date Daron Benton [address] [facility] [address] [place] [phone] PCP - General 06/23/20 Team Status: Active [...] 18, 2025 End: April 22, 2025 Dr. Rmoan Mckeon MD Attending Provider Active Start: April [...] or prosecute any alcohol or drug abuse patient.[facility] FOR RECORDS PERTAINING TO PATIENTS WHO [...] BE BASED ON THE PRIMARY CLINICAL RECORDS. [facility] provides no warranty or guarantee of the accuracy or completeness of information in this document.
--- NOTE | 2025-05-19 23:26 | EX.ED.DYSGE1 ---
HPI History of Present Illness Chief Complaint: Other, Pain/Inj Informant: patient Narrative Narrative: Patient is a 69-year-old female with past medical history of hypertension hypothyroidism and coronary artery disease. She states she was recently in the hospital and the stress from being in the facility led to a shingles outbreak along the right back and leg. She states that the lesions are improving but she has persistent pain. She denies any recent trauma. She denies any fevers or chills. She denies any dysuria. She states she has been taking [id number] medications with minimal symptom improvement and secondary to this comes in for evaluation [facility] Medical History Hypertensive emergency NSTEMI, initial episode of care Emphysema of lung Smoking greater than 30 pack years New onset atrial fibrillation TOLEDO (dyspnea on exertion) Atherosclerotic heart disease of [place] coronary artery without angina pectoris Cardiac murmur Elevated troponin Mitral stenosis Chronic low back pain Diastolic hypertension Chest pain Nicotine dependence, cigarettes, uncomplicated Elevated troponin Depression On home oxygen therapy Atrial fibrillation PAF (paroxysmal atrial fibrillation) Atrial fibrillation Hypothyroidism Smoker Coronary artery disease TIA (transient ischemic attack) Influenza A Nonsustained paroxysmal supraventricular tachycardia Multiple sclerosis Nonobstructive atherosclerosis of coronary artery Peripheral vascular occlusive disease Essential (primary) hypertension Bilateral carotid artery stenosis History of transient ischemic attack (TIA) Fatty liver Thrombocytopenia GERD (gastroesophageal reflux disease) Psoriatic arthritis Psoriasis Osteoporosis Osteoarthritis Goiter Multiple sclerosis HLD (hyperlipidemia) Angina pectoris Chronic pain syndrome Home Medications ?Medication ?Instructions ?Recorded ?Last Taken ?Type gabapentin 800 mg tablet 800 mg PO TID MS 07/16/18 03/19/25 History baclofen 20 mg tablet 20 mg PO Q6H MS 08/11/21 03/19/25 History levothyroxine 50 mcg tablet 50 mcg PO DAILY thyroid 08/11/21 04/21/25 History oxycodone 10 mg tablet 10 mg PO Q6H PRN pain 05/24/23 12/01/23 History dextromethorphan-guaifenesin ER 60 1 tab PO Q12H PRN cough/congest 02/19/24 03/19/25 History mg-1,200 mg tab,extend release,12hr (Mucinex DM) famotidine 40 mg tablet 40 mg PO QDAY PRN indigestion 11/24/24 03/19/25 History aspirin 81 mg tablet,delayed 81 mg PO BREAKFAST heart health 12/11/24 03/19/25 Rx release #30 tabs carvedilol 3.125 mg tablet 3.125 mg PO BIDCM heart #180 tabs 03/03/25 04/21/25 Rx apixaban 5 mg tablet (Eliquis) 5 mg PO Q12H anticoagulation #180 03/09/25 03/19/25 Rx tabs cholecalciferol (vitamin D3) 125 125 mcg PO DAILY supplement 04/18/25 Unknown History mcg (5,000 unit) capsule docusate sodium 100 mg capsule 100 mg PO BID stool softener 7 04/18/25 Unknown Rx (Colace) days #14 caps doxepin 10 mg/mL oral concentrate 5 - 10 mg PO QHS 04/18/25 Unknown History naloxegol 25 mg tablet (Movantik) 25 mg PO DAILY 30 days #30 tabs 04/18/25 Unknown Rx rosuvastatin 10 mg tablet 10 mg PO QHS hld 04/18/25 Unknown History pantoprazole 40 mg tablet,delayed 40 mg PO DAILY 90 days #90 tabs 04/22/25 Unknown Rx release (Protonix) polysaccharide iron complex 150 mg 150 mg PO DAILY 90 days #90 caps 04/22/25 Unknown Rx iron capsule (Ferrex) potassium chloride 20 mEq/15 mL 20 meq (15 mL) PO DAILY 30 days 04/22/25 Unknown Rx oral liquid #450 mL amlodipine 2.5 mg tablet 2.5 mg PO QDAY 05/13/25 Unknown History lisinopril 10 mg tablet 10 mg PO QDAY blood pressure 05/13/25 Unknown History capsaicin 0.1 % topical cream 1 applic topical TID #60 grams 05/19/25 Unknown Rx misoprostol 100 mcg tablet PO 05/19/25 Unknown History oxycodone 5 mg tablet 5 mg PO Q6H PRN pain 3 days #12 05/19/25 Unknown Rx tabs Allergy/AdvReac Type Severity Reaction Status Date / Time colestipol (From Colestid) Allergy Mild unknown Verified 05/19/25 20:46 pregabalin (From Lyrica) Allergy Mild Hives Verified 05/19/25 20:46 amitriptyline Allergy Rash Verified 05/19/25 20:46 temazepam (From Restoril) AdvReac Mild Nausea/Vom/ Verified 05/19/25 20:46 Diarrhea Antihistamines - Alkylamine AdvReac Nausea/Vom/ Verified 05/19/25 20:46 Diarrhea Antihistamines - Ethanolamine AdvReac Nausea/Vom/ Verified 05/19/25 20:46 Diarrhea Antihistamines - AdvReac Nausea/Vom/ Verified 05/19/25 20:46 Ethylenediamine Diarrhea Antihistamines - Piperazine AdvReac Nausea/Vom/ Verified 05/19/25 20:46 Diarrhea Antihistamines - Piperidine AdvReac Nausea/Vom/ Verified 05/19/25 20:46 Diarrhea aspirin AdvReac I'M ON Verified 05/19/25 20:46 BLOOD THINNERS codeine AdvReac Nausea Verified 05/19/25 20:46 Corticosteroids AdvReac Upset Verified 05/19/25 20:46 (Glucocorticoids) Stomach morphine AdvReac Nausea Verified 05/19/25 20:46 [id number] Reductase AdvReac Nausea Verified 05/19/25 20:46 Inhibitor ([id number]-[id number]-Tbn Reductase Inhibitor) Family History Mother Cancer CAD (coronary artery disease) Brain tumor Grandfather CVA (cerebral vascular accident) Father CAD (coronary artery disease) Ruptured abdominal aortic aneurysm (AAA) Sister Brain aneurysm Surgical History History of coronary artery stent placement History of appendectomy History of cholecystectomy History of angioplasty of peripheral vessel (07/11/19) Stenosis of left subclavian artery History of left heart catheterization (01/25/15) S/P coil embolization of cerebral aneurysm History of angioplasty of peripheral vessel History of right-sided carotid endarterectomy History of left-sided carotid endarterectomy History of partial thyroidectomy (11/30/05) History of hemorrhoidectomy History of hysterectomy History of section Brain aneurysm Fracture of right lower leg S/P insertion of iliac artery stent History of left breast biopsy H/O hemorrhoidectomy S/P hysterectomy H/O: S/P thyroidectomy Social History household members: none housing: apartment Smoking Status: Current every day smoker tobacco type: cigarettes alcohol intake: never caffeine: Yes Type: coffee and tea ROS ROS ED Constitutional Constitutional ED: Denies chills or fever(s) ENT ENT ED: Denies sore throat Cardiovascular Cardiovascular: Denies chest pain Respiratory/Chest Respiratory/Chest: Denies cough or dyspnea Gastrointestinal Gastrointestinal: Denies abdominal pain, diarrhea, nausea or vomiting Genitourinary Genitourinary ED: Denies dysuria or hematuria Musculoskeletal Musculoskeletal: Reports back pain and other Details: Positive right leg pain Integumentary Reports rash Neurologic Neurologic: Denies headache(s) Hematologic/Lymphatic Hematologic/Lymphatic: Reports easy bleeding and easy bruising EXAM Physical Exam Const Vital Signs: 05/19/25 20:46 05/19/25 22:26 05/19/25 23:37 Temperature 98.3 F 97.8 F Temperature Source Temporal Pulse Rate 79 75 Respiratory Rate 14 16 Respiratory Effort Normal Non-Labored Respiratory Pattern Normal Blood Pressure 140/58 H 138/61 H Blood Pressure Mean 85 86 Pulse Ox 98 96 Oxygen Delivery Method Room Air Positive well nourished and well developed General Appearance ED: well developed HEENT HEENT Narrative: Normocephalic atraumatic Eyes PERRL and EOMs intact bilaterally General Eye ED: Negative for scleral icterus Neck supple Resp normal respiratory effort and clear to auscultation bilaterally Cardio regular rate and regular rhythm Back/Spine no CVA tenderness Back/Spine Narrative: Along the right lower paralumbar muscle belly region there are healing circular wounds that extend into the right hip region consistent with resolving herpes zoster. No secondary findings to suggest cellulitis or abscess No bony deformity or step-off of the thoracic or lumbar spine; no midline tenderness to palpation Extremity normal to inspection Neuro oriented x3, CN's II-XII intact bilaterally and no sensory deficits noted Sensorium / Orientation: alert Psych mental status grossly normal Skin Skin Narrative: Lesions along the right low back and hip region consistent with healing herpes zoster as documented above MDM MDM MDM Narrative Medical decision making narrative: Patient presented to the ER overall stable vitals. She denied any recent trauma or dysuria or hematuria going against a compression fracture or UTI/pyelonephritis or kidney stone. Exam shows a healing rash that does not cross midline consistent with herpes zoster. There is no surrounding soft tissue changes to suggest a secondary infection such as cellulitis or abscess. Based on the fact that the lesions are healing but her pain has persisted patient most likely has chronic nerve damage now from the zoster. As there is no findings of infection or trauma I do not feel the need for laboratory studies or imaging. I will place the patient on a short round of pain medication as well as capsaicin cream to help with pain from the recent infection. She understands that she needs to follow-up with her family doctor as this pain could be chronic in nature and require prolonged medication. However without signs of trauma or infection there is no need for further intervention and she is otherwise safe for discharge History & Record Review Discussion w/independent historian: Patient Discharge Plan Triage Chief Complaint: Other, Pain/Inj ED Provider: Yasmani Haynes Dx/Rx/DC Orders Clinical Impression: Herpes zoster, Hypertension, Hypothyroidism, Current use of technician terminal and repeater anticoagulation Instructions: Shingles (Herpes Zoster) Prescriptions: New oxycodone 5 mg tablet 5 mg PO Q6H PRN (Reason: pain) 3 Days Qty: 12 0RF capsaicin 0.1 % cream 1 applic topical TID Qty: 60 0RF Rx Instructions: do not wash area for at least 30 min after application No Action gabapentin 800 mg tablet 800 mg PO TID baclofen 20 mg tablet 20 mg PO Q6H levothyroxine 50 mcg tablet 50 mcg PO DAILY Patient Comments: take 1 tablet by mouth once daily oxycodone 10 mg tablet 10 mg PO Q6H PRN Patient Comments: take 1 tab q6 PRN for pain famotidine 40 mg tablet 40 mg PO QDAY PRN (Reason: indigestion) dextromethorphan-guaifenesin [Mucinex DM] 60-1,200 mg tablet extended release 12 hr 1 tab PO Q12H PRN (Reason: cough/congest) doxepin 10 mg/mL concentrate 5 - 10 mg PO QHS cholecalciferol (vitamin D3) 125 mcg (5,000 unit) capsule 125 mcg PO DAILY rosuvastatin 10 mg tablet 10 mg PO QHS polysaccharide iron complex [Ferrex 150] 150 mg iron Capsule 150 mg PO DAILY 90 Days Qty: 90 0RF potassium chloride 20 mEq/15 mL Liquid 20 meq PO DAILY 30 Days Qty: 450 0RF pantoprazole [Protonix] 40 mg tablet,delayed release (DR/EC) 40 mg PO DAILY 90 Days Qty: 90 0RF misoprostol 100 mcg tablet PO aspirin 81 mg Tablet,Delayed Release (Dr/Ec) 81 mg PO BREAKFAST Qty: 30 2RF docusate sodium [Colace] 100 mg capsule 100 mg PO BID 7 Days Qty: 14 0RF Movantik 25 mg tablet 25 mg PO DAILY 30 Days Qty: 30 0RF Rx Instructions: must be taken on empty stomach; no food 1 hr after or 2-3 hrs before dose carvedilol 3.125 mg tablet 3.125 mg PO BIDCM Qty: 180 3RF Eliquis 5 mg tablet 5 mg PO Q12H Qty: 180 3RF amlodipine 2.5 mg tablet 2.5 mg PO QDAY lisinopril 10 mg tablet 10 mg PO QDAY Primary Care Provider: Daron Benton Referrals: Daron Benton MD [Primary Care Provider] - Activity Restrictions/Additional Instructions: Please continue all of your home medications as directed by your doctor use the capsaicin and oxycodone to help control pain from the shingles and return to the ER should you have any further concerns Print Language: Serbian Disposition Disposition: Home, Self Care Discharge Date/Time: 05/19/25 23:38
[2025-05-19 23:37] VITALS: BP 138/61; PULSE 75; RESP 16; TEMP 36.6; O2SAT 96
== END 2025-05-19 23:38 | disposition home or self-care (01) ==
PROVIDERS: Emergency Provider Emergency Medicine; PCP Family Medicine; Visit Provider Emergency Medicine
DX: B02.9 Zoster without complications (principal); I25.10 Atherosclerotic heart disease of native coronary artery without angina pectoris; I10 Essential (primary) hypertension; E03.9 Hypothyroidism, unspecified; F17.210 Nicotine dependence, cigarettes, uncomplicated; Z95.5 Presence of coronary angioplasty implant and graft; Z79.01 Long term (current) use of anticoagulants; Z79.82 Long term (current) use of aspirin; Z79.890 Hormone replacement therapy; Z79.899 Other long term (current) drug therapy
CPT/HCPCS: 99282

== ENCOUNTER → 2025-05-20 | Outpatient (CLI) | payer MEDICARE, MEDICAID, SELFPAY ==
--- NOTE | 2025-05-20 12:44 | MRI_ITS ---
PROCEDURE: BRAIN WITHOUT CONTRAST 05/20/2025 REASON FOR EXAM: MILD COGNITIVE IMPAIRMENT,MENTAL STATUS CHANGE TECHNIQUE: BRAIN WITHOUT CONTRAST Multiplanar and multisequence images were obtained. COMPARISON: CT head without contrast, 04/21/2025. FINDINGS: Prominent artifact due to suprasellar coil embolization. There are chronic white matter infarctions in the anterior watershed on the right and in the posterior watershed on the left. There is surrounding encephalomalacia at both sites. There are few foci of abnormal periventricular and subcortical white matter signal in both cerebral hemispheres consistent with chronic ischemic white matter disease. There is a normal sulcal pattern and gyral configuration. There is no evidence of acute intracranial hemorrhage or infarction. The patel-white differentiation is well preserved. There is no evidence of restricted diffusion. The ventricles and basilar cisterns are normal. There are normal flow voids demonstrated in the recognized intracranial vessels. The cerebellum and brainstem are unremarkable. The cerebellar pontine angles are normal. The craniovertebral junction is normal. The sella and suprasellar regions are normal. Status post bilateral intra-ocular lens implants. The orbits and retro-orbital regions are otherwise unremarkable. The nasal septum is midline. There is no significant paranasal sinus disease. The mastoid air cells are clear. There is normal bone marrow signal in the skull base and calvarium. MRI/Brain without Contrast IMPRESSION: 1. 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 2. Status post suprasellar aneurysm embolization. 3. Mild chronic ischemic white matter disease. 4. No evidence of acute intracranial pathology. Reading Location: [id number]
== END | disposition home or self-care (01) ==
LOC: OPMRI 12:12
PROVIDERS: PCP Family Medicine; Referring Provider Nurse Practitioner Family; Visit Provider Nurse Practitioner Family
DX: G31.84 Mild cognitive impairment of uncertain or unknown etiology (principal)
CPT/HCPCS: 70551

== ENCOUNTER 2025-06-03 02:29 | Inpatient (IN) | payer MEDICARE, MEDICAID, SELFPAY ==
[2025-06-03] VITALS (30 sets, daily range): BP systolic 79–133; BP diastolic 51–83; PULSE 59–100; RESP 12–20; TEMP 35.5–37.2; O2SAT 88–100; BMI 17.7; BMI 17.5
--- OUTSIDE RECORDS SUMMARY | 2025-06-03 03:07 | XMS RPT_ITS | CCD ---
Author Organization [facility] Care Team Providers Care Tow Operator Name Role Phone YOGESH ONOFRE Unavailable Unavailabl e ZHANE PARRA Unavailable Unavailable YOGESH ONOFRE Unavailable Unavailable ZHANE DE Unavailable Unavailable ZHANE DE Unavailable Unavailable Dr. Daron Benton Primary Care Provider [phone] Daron Benton Referring Provider Dr. Kai Jacobson Attending Provider MARIANA Davenport Attending Provider Dr. Daron Benton Primary Care Provider [phone] Daron Benton Referring Provider Dr. Daron Benton Primary Care Provider [phone] Daron Benton Referring Provider MARIANA Davenport Attending Provider Dr. Daron Benton Primary Care Provider [phone] Daron Benton Referring Provider Dr. Kai Jacobson Attending Provider MARIANA Davenport Attending Provider Dr. Orlando Jacob Attending Provider Dr. Daron Benton Primary Care Provider [phone] Daron Benton Referring Provider Dr. Kai Jacobson Attending Provider MARIANA Davenport Attending Provider Dr. Orlando Jacob Attending Provider [phone] Daron Benton Primary Care Provider [...] Daron Benton Primary Care Provider Dr. Daron eBnton Referring Provider Katia Chi Attending Provider Unavailable [...] Other Provider Dr. Mendez Oviedo Other Provider [phone] MD Deepika Graham Other Provider MS [...] Other Provider Dr. Sarkis Brown Other Provider [phone] Simon Tellez Other Provider Dr. Michele Rascon Other Provider Dr. Kirsten Azevedo Other Provider Dr. Joseph Desai Other Provider Dr. Samina Mortensen Other Provider Unavailable MD Keyona Davidson Other Provider Unavailable Dr. Sachin Murillo Referring Provider Dr. Daniel Edmonds Other Provider [phone] Dr. Isaias Scherer Other Provider Dr. Jorge Hurtado Attending Provider Dr. Jorge Hurtado Other Provider Dr. Brandon Gaming Other Provider Dr. Anita Amezcua Other Provider Dr. Pamela Pan Other Provider Unavailable Dr. Go Alejo Other Provider Dr. Jesus Alfonso Other Provider Dr. Kehinde Inman Other Provider Dr. Mendez Oviedo Other Provider MD Deepika Graham Other Provider Dada, MS Maurilio Other Provider MD Phil Trery Other Provider MD SARI MENA Other Provider MD Jose Santos Other Provider MD Rhiannon Farris Other Provider Dr. Jeffy Willoughby Emergency Provider [phone] Daron Benton Primary Care Provider [...] Mortensen Referring Provider Tye Barnett MD Unavailable Esperanza FOX, Daron Santos Primary Care Provider Daron [...] Provider Kati FOX, Dr. Strauss Other [facility] Dr. Kowalski Attending Provider Kati FOX, Dr. Strauss Attending Provider [facility] , Dr. Kowalski Other Provider Baljit FOX, Dr. Mejia Attending Provider Esperanza FOX, Dr. Neri Attending Provider Nidia FOX, Dr. Perry Attending Provider Nidia FOX, Dr. Perry Other Provider Betsey Davenport Referring Provider Nuno Grider MD Referring Provider Esperanza FOX, Dr. Neri Primary Care Provider Esperanza FOX, Dr. Neri Referring Provider Betsey Davenport Attending Provider Linda MENDOZA-C, Negar Cheema Attending Provider Dr. Benjy Flores DO Referring Provider Dr. Benjy Flores DO Emergency Provider Martín FOX, Dr. Sommer Hebert Admit Provider Martín FOX, Dr. Sommer Hebert Other Provider Kati FOX, Dr. Strauss Other Provider [facility], Dr. Kowalski Attending Provider Shirley FOX, Dr. Neha Lewis Other Provider Kati FOX, Dr. Strauss Attending Provider Shirley FOX, Dr. Neha Lewis Attending Provider Husam FOX, Dr. Kirby Attending Provider Gm HERNANDEZ, Dr. Kowalski Other Provider Baljit FOX, Dr. Mejia Attending Provider Esperanza FOX, Dr. Neri Attending Provider Nidia FOX, [...] Lidia FOX, Dr. Sachin Prieto Referring Provider Esperanza FOX, Dr. Neri Primary Care Provider Esperanza FOX, Dr. Neri Referring Provider Shirley FOX, Dr. Neha Lewis Other Provider Shirley FOX, Dr. Neha Lewis Attending Provider Husam FOX, Dr. Kirby Attending Provider Betsey Davenport Attending Provider Nuno Grider MD Attending Provider Marni FOX, Nuno Emergency Provider Kingston FOX, Dr. Elmore Attending Provider iKngston FOX, Dr. Elmore Emergency Provider Ivy HERNANDEZ, [...] Martín FOX, Dr. Sommer Hebert Attending Provider Esperanza FOX, Dr. Neri Primary Care Provider Kati FOX, Dr. Strauss Other Provider Kati FOX, Dr. Strauss Attending Provider Esperanza FOX, Dr. Neri Referring Provider Dr. Yasmani Haynes DO Attending Provider Kirk CLINICAL PSYCHOLOGY PROFESSOR-CIona Attending Provider LIZZ LYNN Attending Unavailable BENTON, DARON Primary Care Unavailable LIZZ LYNN Attending Unavailable ESPERANZA, DARON Primary Care Unavailable Esperanza FOX, Dr. Neri Primary Care Provider Esperanza FOX, Dr. Neri Referring Provider Esperanza FOX, Dr. Neri Other Provider Elijah FOX, Dr. Tye Santos Attending Provider Elijah FOX, Dr. Tye Santos Referring Provider oRbert CLINICAL PSYCHOLOGY PROFESSOR-CLizz Attending Provider Unavail able Robert CLINICAL PSYCHOLOGY PROFESSOR-C, Lizz Referring Provider Unavail able Esperanza, Daron Primary Care Unavailable Jorge Hurtado Attending Unavailable Jorge Hurtado Referring Unavailable Carlos A Parikh Consulting Unavailable Mark, Benjy Referring Unavailable Benton, Daron Primary Care Unavailable Dex Worrell Attending Unavailable Sommer Resendiz Admitting Unavailable White, Sommer L Consulting Unavailable Koram, Neha Debbie Consulting Unavailable Tyler, Trina Admitting Unavailable Benton, Daron Primary Care Unavailable Koram, Neha Debbie Attending Unavailable Nagajovincent, Nagapradee Consulting Unavailabl e Tyler, Trina Consulting Unavailable Kotsonis, Sachin F Admitting Unavailable Kotsonis, Sachin F Referring Unavailable Kotsonis, Sachin F Consulting Unavailable Benton, Daron Primary Care Unavailable Roman Mckeon Attending Unavailable Kevin Gonzalez Attending Unavailable Benton, Daron Primary Care Unavailable Benton, Daron Referring Unavailable Benton, Daron Primary Care Unavailable Benton, Daron Referring Unavailable Betsey Davenport Attending Unavail able Kevin Gonzalez Attending Unavailable Kotsonis, Sachin F Referring Unavailable Kotsonis, Sachin F Admitting Unavailable Kotsonis, Sachin F Consulting Unavailable Benton, Daron Primary Care Unavailable Roman Mckoen Consulting Unavailable Benton, Daron Primary Care Unavailable Nuno Grider Attending Unavailable Nuno Grider Referring Unavailable Ramírez Onofre Attending Unavailable Benton, Daron Primary Care Unavailable Yasmani Haynes Attending Unavailable Yasmani Haynes Referring Unavailable Benton, Daron Primary Care Unavailable Yasmani Haynes Attending Unavailable Benton, Daron Primary Care Unavailable Benton, Daron Primary Care Unavailable Jeffy Willoughby Attending Unavailable Benton, Daron Primary Care Unavailable Yasmani Haynes Attending Unavailable Benton, Daron Referring Unavailable Benton, Daron Primary Care Unavailable Benton, Daron Attending Unavailable Benton, Daron Primary Care Unavailable Nidia, [place] Consulting Unavailable Betsey Davenport Referring Unavail able NidiaOrlando mirza Attending Unavailable Benton, Daron Primary Care Unavailable Koram, Neha Debbie Attending Unavailable Nagajothi, Nagapradee Consulting Unavailabl e Tyler, Trina Admitting Unavailable Tyler, Trina Consulting Unavailable Koram, Neha Debbie Consulting Unavailable Lizz Lynn Referring Unavailable Benton, Daron Primary Care Unavailable Lizz Lynn Attending Unavailable Benton, Daron Primary Care Unavailable Benton, Daron Consulting Unavailable Tye Barnett Attending Unavailable Tye Barnett Referring Unavailable Benjy Floers Referring Unavailable Benton, Daron Primary Care Unavailable Sommer Resendiz Attending Unavailable Sommer Resendiz Consulting Unavailable Sommer Resendiz Admitting Unavailable Trina Tyler Attending Unavailable Negar Mckeon Attending Unavailable Benton, Daron Referring Unavailable Benton, Daron Primary Care Unavailable Kofi Weiner Attending Unavailabl Roman Blair Attending Unavailable Carlos A Parikh Consulting Unavailable Carlos A Parikh Attending Unavailable Neha Watson Debbie Consulting Unavailable Kofi Weiner Attending Unavailabl e Benton, Daron Primary Care Unavailable Benton, Daron Primary Care Unavailable Jorge Hurtado Attending Unavailable Benton, Daron Referring Unavailable Benton, Daron Referring Unavailable Benton, Daron Primary Care Unavailable Betsey Davenport Attending Unavail able Neha Watson Attending Unavailable Bhavik Smiley Attending Unavailable Gm, Dex Consulting Unavailable Gm, Dex Attending Unavailable Sachin Murillo Attending Unavailable Benton, Daron Primary Care Unavailable Orlando Jacob Attending Unavailable Benton, Daron Primary Care Unavailable BrownPerryk Attending Unavailable Brown, Jorge Referring Unavailable Trina Tyler Referring Unavailable NagKofi stock Attending Unavailabl e Benton, Daron Primary Care Unavailable Benton, Daron Primary Care Unavailable BrownPerryk Attending Unavailable Brown, Jorge Referring Unavailable Brown, Jorge Consulting Unavailable Negar Mckeon Attending Unavailable Benton, Daron Primary Care Unavailable Benton, Daron Referring Unavailable Iona Bradley Attending Unavailable Benton, Daron Referring Unavailable Benton, Daron Primary Care Unavailable Benton, Daron Primary Care Unavailable Benton, Daron Referring Unavailable Negar Mckeon Attending Unavailable Benton, Daron Referring Unavailable Benton, Daron Primary Care Unavailable Betsey Davenport Attending Unavail able Friend, Kevin Referring Unavailable FriendKevin Attending Unavailable Benton, Daron Primary Care Unavailable Benton, Daron Primary Care Unavailable Tye Barnett Attending Unavailable Tye Barnett Referring Unavailable Benton, Daron Primary Care Unavailable BrownPerryk Attending Unavailable Brown, Jorge Referring Unavailable Benton, Daron Primary Care Unavailable Benton, Daron Attending Unavailable Allergies Allergy Classification Reported Allergen(s) Allergy Type Date of Onset Reaction(s) Facility (4 sources) Antihistamines; Translations: [ANTIHISTAMINES] Propensity to adverse reactions to drug (disorder) 04-28-20 04 [facility] (3 sources) clopidogrel; Translations: [CLOPIDOGREL BISULFATE] Drug Allergy 12-18-19 12 Other: See Comments [facility] (20 sources) codeine; Translations: [CODEINE] Drug Allergy 04-28-20 04 Nausea [facility] (3 sources) fenofibrate; Translations: [FENOFIBRATE MICRONIZED] Drug Allergy 04-27-20 11 Intolerance [facility] (20 sources) fentaNYL; Translations: [FENTANYL] Drug Allergy 02-19-20 12 Other: See Comments [facility] (3 sources) Hmg-Coa Reductase Inhibitors (Statins); Translations: [PZOHUNS-OFX-TZT REDUCTASE INHIBITORS] Propensity to adverse reactions to drug (disorder) 04-27-20 11 Intolerance [facility] (20 sources) morphine; Translations: [MORPHINE] Drug Allergy 04-28-20 04 Nausea, Vomiting [facility] (20 sources) predniSONE; Translations: [PREDNISONE] Drug Allergy 12-15-19 09 [facility] (20 sources) salicylic acid; Translations: [SALICYLATES] Drug Allergy 12-04-19 09 [facility] (20 sources) Amitriptyline Drug Allergy 03-12-20 19 Rash [facility] (20 sources) Aspirin; Translations: [aspirin] Drug Allergy 02-15-20 22 Ulcer (morphologic abnormality) [facility] (20 sources) Colestipol; Translations: [colestipol] Drug Allergy 02-15-20 22 unknown [facility] (20 sources) Ethylenediamine derivative antihistamine Propensity to adverse reactions 02-15-20 22 Nausea/Vom/[place] [facility] (20 sources) pregabalin Drug Allergy 02-15-20 22 Hives [facility] (20 sources) Temazepam Drug Allergy 02-15-20 22 Nausea/Vom/[place] [facility] (20 sources) Antihistamines - Alkylamine; Translations: [Antihistamines - Alkylamine] Propensity to adverse reactions 02-15-20 22 Nausea/Vom/[place] [facility] (20 sources) Antihistamines - Ethanolamine; Translations: [Antihistamines - Ethanolamine] Propensity to adverse reactions 02-15-20 22 Nausea/Vom/[place] [facility] (20 sources) Antihistamines - Piperazine; Translations: [Antihistamines - Piperazine] Propensity to adverse reactions 02-15-20 22 Nausea/Vom/[place] [facility] (20 sources) Antihistamines - Piperidine; Translations: [Antihistamines - Piperidine] Propensity to adverse reactions 02-15-20 22 Nausea/Vom/[place] [facility] (20 sources) Hlmybhk-Hne-Qto Reductase Inhibitor; Translations: [Pnibchb-Tnv-Xes Reductase Inhibitor] Propensity to adverse reactions 02-15-20 22 Nausea [facility] (8 sources) STEROIDS BY MOUTH Propensity to adverse reactions 02-15-20 22 Upset Stomach [facility] (1 source) HMG-CoA reductase inhibitor; Translations: [statins] Drug allergy [facility] (20 sources) Glucocorticoid Receptor Agonists Propensity to adverse reactions 03-16-20 23 Upset Stomach [facility] (17 sources) clopidogrel Drug Allergy 12-18-19 12 [facility] (17 sources) Fenofibrate Drug Allergy 04-27-20 11 [facility] (17 sources) Antihistamines, Diphenhydramine-Ty pe Drug Intolerance 09-17-20 [facility] (1 source) Amitriptyline Drug Allergy 05-19-20 [facility] (1 source) Aspirin Drug Allergy 05-19-20 [facility] (1 source) Colestipol Drug Allergy 05-19-20 [facility] (1 source) Corticosteroids Drug allergy (disorder) 05-19-20 [facility] (1 source) pregabalin Drug Allergy 05-19-20 [facility] (1 source) Temazepam Drug Allergy 05-19-20 [facility] (1 source) Antihistamines - Ethylenediamine Drug allergy (disorder) 05-19-20 [facility] Repository Medications Current Medications Medication Drug Class(es) Dates Sig (Normalized) Sig (Original) acetaminophen 325 mg / HYDROcodone bitartrate 5 mg oral tablet (1 source) Opioid Agonist take 1 tablet by mouth every six hours as needed HYDROcodone-acetam inophen (NORCO) 5-325 mg per tablet Take 1 tablet by mouth every 6 hours as needed. Active [id number] 200 actuat albuterol 0.09 mg/actuat metered dose [...] bedtime. Active amLODIPine 2.5 mg oral tablet (19 sources) Dihydropyridine Calcium Channel Elli Start: 05-13-2025 [...] 5 mg PO TWICE A DAY 60 January 11, 2024 1:00am January 10, 2025 11:53pm Start: 11-21-2023 End: 12-21-2023 Start: 11-21-2023 End: 12-21-2023 take 1 tablet by mouth twice daily Apixaban (Eliquis) 5 mg Tablet Discontinued 5 mg PO TWICE A DAY 60 November 21, 2023 1:00am December 21, 2023 1:57pm aspirin 81 mg delayed release oral tablet (8 sources) Platelet Aggregation Inhibitor, Nonsteroidal Anti-inflammatory Drug [...] Mastodynia Take by mouth twice daily. Active capsaicin 1 mg/ml topical cream (2 sources) Start: 05-19-2025 cholecalciferol 0.125 mg oral capsule (20 sources) Vitamin D Start: 02-27-2022 Start: 12-16-2013 take 1 tablet by celeste th once daily Cholecalciferol (Vitamin D3) 5,000 UNIT tablet Active 5000 U PO DAILY December 16, 2013 1:00am 12 hr dextromethorphan hydrobromide 60 mg / guaiFENesin 1200 mg extended release oral tablet (20 sources) Uncompetitive N-gtddks-W-aspartate Receptor Antagonist, Sigma-1 Agonist Start: 11-16-2023 End: 02-19-2024 Start: 11-16-2023 End: 02-19-2024 take 60-1200 mg by mouth every twelve hours as needed Dextromethorphan-Guaifenesin (Mucinex Dm ) 60-1,200 mg tablet extended release 12 hr Active 1 {tbl} PO Q12H as needed for cough/congest February 19, 2024 12:00am Start: 11-16-2023 End: 02-19-2024 docusate sodium 100 mg oral capsule (7 sources) Start: 04-18-2025 doxepin hydrochloride 10 mg/ ml oral solution (6 sources) Tricyclic Antidepressant Start: 04-18-2025 Start: 04-18-2025 take 5-10 mg by mouth at bedti ct Doxepin 10 mg/mL concentrate Active 5 - [...] Start: 02-02-2015 take 1 capsule by mo [facility] three times daily gabapentin (NEURONTIN) 400 [...] Start: 08-23-2011 take 2 tablets by mo [facility] once daily levothyroxine 25 mcg ORAL tablet [...] mg by mouth. As needed 02/28/2011 Active miSOPROStol 0.1 mg oral tablet (2 sources) Prostaglandin E1 Analog Start: 05-19-2025 naloxegol 25 mg oral tablet (7 sources) Opioid Antagonist Start: 04-18-2025 oxyCODONE hydrochloride 5 mg oral tablet (20 sources) Opioid Agonist Start: 05-19-2025 Start: 10-05-2023 End: 11-15-2023 Start: 11-07-2022 oxyCODONE [...] 02-01-2018 End: 08-11-2021 Start: 02-01-2018 End: 08-11-2021 pantoprazole 40 mg delayed r elease oral tablet (15 sources) Proton Pump Inhibitor Start: 04-22-2025 Start: 02-25-2024 End: 04-21-2024 polysaccharide iron complex 150 mg oral capsule (5 sources) Start: 04-22-2025 potassium chloride 1.33 meq/ ml oral solution (5 sources) Start: 04-22-2025 rosuvastatin calcium 10 mg o ral tablet (14 sources) HMG-CoA Reductase Inhibitor Start: 04-18-2025 Start: [...] 1 TABLET PO EVERY 6 HOURS NEEDED 10 21February 09, 2021 February 11, 2021 11:04pm amoxicillin 875 mg / clavula sadia 125 mg oral tablet (20 sources) Penicillin-class Antibacterial Start: 02-25-2024 End: 04-21-2024 Start: 02-25-2024 End: 04-21-2024 Amoxicillin-Pot Clavulanate 875-125 mg tablet Discontinued 1 {tbl} PO TWICE A DAY February 25, 2024 12:00am April 21, 2024 [...] 0.042 mg /actuat metered dose nasal spray (6 sources) Anticholinergic Start: 04-18-2025 End: 05-06-2025 Start: 04-18-2025 Ipratropium Br omide 42 mcg (0.06 %) spray,non-aerosol Active 2 NMA INTRANASAL THREE TIMES A DAY as needed for allergy symptoms April 18, 2025 12:00am administer into each nostril Ipratropium Arnold 42 mcg ( 0.06 %) spray,non-aerosol (2 sources) Start: 12-24-2024 End: 04-18-2025 Ipratropium Arnold 42 mcg (0.06 %) spray,non-aerosol Discontinued 2 [...] bedtime metoclopramide 5 mg oral tab let (8 sources) Dopamine-2 Receptor Antagonist Start: 06-19-2024 End: 11-28-2024 metoprolol tartrate 25 mg or al tablet (20 sources) beta-Adrenergic Elli Start: 11-21-2023 End: 02-19-2024 Start: 11-21-2023 End: 02-19-2024 Start: 10-26-2020 End: 10-05-2023 Start: 10-26-2020 End: 10-05-2023 Start: 06-14-2020 End: 10-26-2020 phenazopyridine hydrochlorid e 200 mg oral tablet (20 sources) Start: 03-31-2023 End: 10-05-2023 plecanatide 3 mg oral tablet (8 sources) Start: 06-19-2024 End: 11-28-2024 predniSONE 20 [...] [Acute kidney failure, unspecified] 11-15-2023 Episodic Acute myocardial infarction (20 sources) Myocardial infarction; [...] paroxysmal supraventricular tachycardia; Translations: [Supraventricular tachycardia] Onset: 5 08-10-2021 Chronic Cardiac dysrhythmias (20 sources) Intermittent palpitations; Translations: [Palpitations] 08-11-2021 Episodic Chronic obstructive pulmonary disease and bronchiectasis (20 sources) Pulmonary emphysema; Translations: [Emphysema, unspecified] Onset: 4 01-21-2025 Chronic Conditions associated with dizziness or vertigo (20 sources) Dizziness; Translations: [Dizziness and giddiness] 11-26-2023 Episodic Coronary atherosclerosis and other heart disease (20 sources) Non-obstructive atherosclerosis of coronary artery; Translations: [Atherosclerotic heart disease of [place] coronary artery without angina pectoris] Onset: Chronic Deficiency and other anemia (20 sources) Anemia; Translations: [Anemia, unspecified] 02-19-2024 Episodic Deficiency and other anemia (5 sources) Anemia, unspecified; Translations: [Anemia, unspecified] Onset: 5 02-19-2024 Episodic Deficiency and other anemia (12 sources) Chronic anemia; Translations: [Anemia, unspecified] 04-18-2025 Episodic Deficiency and other anemia (12 sources) Microcytic anemia; Translations: [Iron deficiency anemia, unspecified] 04-18-2025 Episodic Disorders of lipid metabolism (20 sources) Hyperlipidemia; Translations: [Hyperlipidemia, unspecified] Onset: 5 10-16-2018 Chronic E Codes: Fall (20 sources) Fall; Translations: [Unspecified fall, initial encounter] [...] status migrainosus] 09-11-2018 Chronic Heart valve disorders (20 sources) Mitral valve stenosis; Translations: [Rheumatic mitral stenosis] Onset: 5 12-19-2024 Chronic Hypertension with complications and secondary hypertension (15 sources) Hypertensive emergency; Translations: [Hypertensive emergency] Onset: 5 01-21-2025 Chronic Influenza (20 sources) Influenza due to Influenza A virus; Translations: [Influenza due to other identified influenza virus with other respiratory manifestations] 11-15-2023 Episodic Malaise and fatigue (20 sources) Asthenia; Translations: [Weakness] Onset: 5 12-02-2023 Episodic Multiple sclerosis (20 sources) Multiple sclerosis; Translations: [Multiple sclerosis] Onset: 5 02-17-2022 Chronic Nausea and vomiting (9 sources) Nausea and vomiting; Translations: [Nausea with vomiting, unspecified] Onset: 5 04-02-2025 Episodic Nonmalignant breast conditions (1 source) Fibrocystic disease of breast; Translations: [Diffuse cystic mastopathy of unspecified breast] Onset: 9 09-28-2009 Chronic Nutritional deficiencies (3 sources) Deficiency of multiple nutrient elements; Translations: [Deficiency of multiple nutrient elements] Onset: 5 03-04-2025 Episodic Occlusion or stenosis of precerebral arteries (20 sources) Occlusion and stenosis of bilateral carotid arteries; Translations: [Bilateral stenosis of carotid arteries] Onset: 8 Chronic Comment on above: RCEA and LCEA Osteoarthritis (20 sources) Osteoarthritis of left knee joint; Translations: [Unilateral primary osteoarthritis, left knee] Chronic Other acquired deformities (20 sources) Contracture of left knee joint; Translations: [Contracture, left knee] 01-31-2022 Chronic Other aftercare (20 sources) Long-term current use of anticoagulant; Translations: [long term care phlebotomist (current) use of anticoagulants] 01-18-2024 Episodic Other and ill-defined cerebrovascular disease (20 sources) Intracranial aneurysm; Translations: [Cerebral aneurysm, nonruptured] 08-02-2019 Chronic Comment on above: s/p coiling February 05 Other and ill-defined cerebrovascular disease (2 sources) Cerebrovascular disease; Translations: [Cerebrovascular disease, unspecified] 10-05-2023 Chronic Other and ill-defined cerebrovascular disease (1 source) Cerebral aneurysm, nonruptured; Translations: [Cerebral aneurysm, nonruptured] Onset: Chronic Other circulatory disease (14 sources) Stenosis of left subclavian artery; 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] 01-11-2024 Chronic Other circulatory disease (20 sources) H/O: atrial fibrillation; Translations: [Personal history of other diseases of the circulatory system] 11-27-2023 Episodic Other circulatory disease (16 sources) Low blood pressure; Translations: [Hypotension, unspecified] 02-19-2024 Episodic Other circulatory disease (3 sources) Hypotension, unspecified; Translations: [Hypotension, unspecified] 02-19-2024 Episodic Other circulatory disease (12 sources) Orthostatic hypotension; Translations: [Orthostatic hypotension] 04-18-2025 Episodic Other connective tissue disease (20 sources) Pain in calf; Translations: [Pain in left lower leg] 12-02-2022 Episodic Other connective tissue disease (20 sources) Foot pain; Translations: [Pain in left foot] 03-16-2023 Episodic Other eye disorders (20 sources) Pain in eye; Translations: [Ocular pain, right eye] 02-25-2022 Episodic Other gastrointestinal disorders (11 sources) Occult blood in stools; Translations: [Other fecal abnormalities] 02-19-2024 Episodic Other gastrointestinal disorders (3 sources) Other fecal abnormalities; Translations: [Nonspecific abnormal findings in stool contents] 02-19-2024 Episodic Other gastrointestinal disorders (13 sources) Constipation; Translations: [Constipation, unspecified] 04-18-2025 Episodic [...] dyspnea] 11-24-2022 Episodic Other lower respiratory disease (19 sources) Cough; Translations: [Cough] 11-26-2023 Episodic Other lower respiratory disease (12 sources) Hypoxemia; Translations: [Hypoxemia] 10-08-2024 Episodic Other [...] skin] 02-26-2022 Episodic Other nervous system disorders (17 sources) Facial paresthesia; Translations: [Paresthesia of skin] [...] of joint, lower leg] 10-22-2023 Episodic Other upper respiratory disease (8 sources) Acute bronchospasm; Translations: [Acute bronchospasm] 12-25-2024 Episodic Peripheral and visceral atherosclerosis (20 sources) Peripheral vascular disease, unspecified; Translations: [Peripheral vascular disease] Onset: 02-04-201 7 Chronic Pneumonia (except that caused by tuberculosis or sexually transmitted disease) (14 sources) Community acquired pneumonia; Translations: [Pneumonia, unspecified organism] 02-19-2024 Episodic Residual codes; unclassified (20 sources) Edema of foot; Translations: [Localized edema] 12-02-2022 Episodic Residual codes; unclassified (20 sources) FH: Multiple sclerosis; Translations: [Family history of epilepsy and other diseases of the nervous system] 11-27-2023 Episodic Residual codes; unclassified (20 sources) Sign; Translations: [Other general symptoms and signs] 02-19-2024 Episodic Residual codes; unclassified (3 sources) Other general symptoms and signs; Translations: [Anemia, unspecified] 02-19-2024 Episodic Residual codes; unclassified (12 sources) Genetic disorder carrier; Translations: [Genetic carrier of other disease] 12-24-2024 Episodic Spondylosis; intervertebral disc disorders; other back problems (20 sources) Degeneration of lumbosacral intervertebral disc; Translations: [Other intervertebral disc degeneration, lumbosacral region] 04-08-2021 Chronic Sprains and strains (20 sources) Strain of thoracic region; Translations: [Strain of muscle and tendon of back wall of thorax, initial encounter] 01-30-2020 Episodic Substance-related disorders (20 sources) Tobacco dependence caused by cigarettes; Translations: [Nicotine dependence, cigarettes, uncomplicated] Onset: 4 12-19-2024 Chronic Comment on above: LDCT due 10/13 Substance-related disorders (6 sources) Continuous opioid dependence; Translations: [Opioid use, unspecified, uncomplicated] 04-18-2025 Episodic Superficial injury; contusion (20 sources) Abrasion of cornea of right eye; Translations: [Injury of conjunctiva and corneal abrasion without foreign body, right eye, initial encounter] 02-25-2022 Episodic Thyroid disorders (2 sources) Non-toxic uninodular goiter; Translations: [Nontoxic single thyroid nodule] Onset: 5 05-29-2024 Chronic Unclassified (1 source) Unknown / UNK(Unknown) Onset: 7 Urinary tract infections (20 sources) Cystitis; Translations: [Cystitis, unspecified without hematuria] 03-31-2023 Episodic Viral infection (3 sources) Herpes zoster; Translations: [Zoster without complications] Onset: 05-19-2025 Episodic Past or Other Problems Problem Classification Problem Date Documented Date Episodic/Chronic Biliary tract disease (2 sources) Gallstone; Translations: [Calculus of gallbladder without cholecystitis without obstruction] Onset: 12-05-2010 12-05-2010 Episodic Heart valve disorders (20 sources) Heart murmur; Translations: [Cardiac murmur, unspecified] Onset: 01-19-2025 Episodic Nonspecific chest pain (20 sources) Atypical chest pain; Translations: [Other chest pain] Onset: 12-11-2024 08-11-2021 Episodic Other aftercare (1 source) Encounter for [...] Translations: [Other respiratory abnormalities] Onset: 01-19-2025 Episodic Other screening for suspected conditions (not mental disorders or infectious disease) (20 sources) Raised cardiac enzyme or marker; Translations: [Other specified abnormal findings of blood chemistry] Onset: 09-14-2009 11-18-2023 Episodic Spondylosis; intervertebral disc disorders; other back problems (20 sources) Sciatica; Translations: [Sciatica, left side] Onset: 01-28-2025 02-22-2022 Episodic Results Test Name Value Interpretation Reference Range Facility Brain without Contraston Brain without Contrast Normal [facility] Magnetic resonance imaging r eportOrdered By: Tc Baum on 05-20-2025 Study report [facility] Work Phone: Emergency Department Summary on 05-19-2025 Emergency Department Summary Normal [facility] Thyroid Antibodieson 025 TG AB < 1.0 Normal 0.0-0.9 [facility] Comment on above: Result Comment: Thyr oglobulin Antibody measured by Jasmeet CoulterMethodologyIt should be noted that the presence of thyroglobulinantibodies may not be pathogenic nor diagnostic, especiallyat very low levels. The assay cemetery laborer has found thatfour percent of individuals without evidence of thyroiddisease or autoimmunity will have positive TgAb levels upto 4 IU/mL.Performed at: [address] [id number] Director: Damion Richards PhD, Phone: [phone] Performed By: #### L 3300.6750, L503.0106, L506.0200 ####[facility] [address] [place], [address] THYR PEROX AB < 9 Normal 0-34 [facility] Comment on above: Performed By: #### L 3300.6750, L503.0106, L506.0200 ####[facility] [address] [place], [address] Absolute lymphocyte countOrd ered By: Daron Benton on 05-15-2025 Lymphocytes Auto (Unsp spec) [#/Vol] 1.09 10*3/uL 0.83-4.51 [facility] Anion gap in Serum or Plasma Ordered By: Daron Benton on 05-15-2025 Anion gap [Moles/Vol] 11 mmol/L 5-15 [facility] Automated lymphocyte count a s percentage of total leukocytesOrdered By: Daron Benton on 05-15-2025 Lymphocytes/100 WBC Auto (Unsp spec) 13.0 % Low 19-41 [facility] BUN/creatinine ratioOrdered By: Daron Benton on 05-15-2025 Urea nitrogen/Creatinine [Mass ratio] 22.7 mg/mg High 10-20 [facility] Basophil percentageOrdered B y: Daron Benton on 05-15-2025 Basophils/100 WBC (Bld) 0.8 % 0-1 W [facility] Bilirubin, totalOrdered By: Daron Benton on 05-15-2025 Bilirubin [Mass/Vol] 0.18 mg/dL 0.00-1.30 [facility] Blood manual differential co mment interpretation (narrative result)Ordered By: Daron Benton on 05-15-2025 Manual differential comment Jimy (Bld) [Interp] SCANNED [facility] Blood polychromasia detectio n by light microscopyOrdered By: Daron Benton on 05-15-2025 Polychromasia LM Ql (Bld) 1+ [facility] CBC W/Diff, Automatedon 04-20 Anisocytosis Ql (Bld) 1+ Normal [facility] Comment on above: Order Comment: Order Date: 05/15/25Order Info: [id number] - CBCDOrder Info: 4679-7 - RETIC Performed By: #### L 100.0100, L100.9950, L506.0400, L500.4050, L501.9520, L503.6030, L503.6550, L501.67883 ####[facility] [address] [place], [place], [id number] HYPOCHROMASIA 1+ Normal [facility] Comment on above: Order Comment: Order Date: 05/15/25Order Info: [id number] - CBCDOrder Info: 4679-7 - RETIC Performed By: #### L 100.0100, L100.9950, L506.0400, L500.4050, L501.9520, L503.6030, L503.6550, L501.81027 ####[facility] [address] [place], [place], [phone] PLT EST ADEQUATE Normal ADEQ [facility] Comment on above: Order Comment: Order Date: 05/15/25Order Info: [id number] - CBCDOrder Info: 4679-7 - RETIC Performed By: #### L 100.0100, L100.9950, L506.0400, L500.4050, L501.9520, L503.6030, L503.6550, L501.23094 ####[facility] [address] [place], [place], [phone] POLYCHROMASIA 1+ Normal [facility] Comment on above: Order Comment: Order Date: 05/15/25Order Info: 0184-1 - CBCDOrder Info: 4679-7 - RETIC Performed By: #### L 100.0100, L100.9950, L506.0400, L500.4050, L501.9520, L503.6030, L503.6550, L501.98868 ####[facility] [address] [place], [address] SMEAR COMMENT SCANNED Normal [facility] Comment on above: Order Comment: Order Date: 05/15/25Order Info: 0184-1 - CBCDOrder Info: 4679-7 - RETIC Performed By: #### L 100.0100, L100.9950, L506.0400, L500.4050, L501.9520, L503.6030, L503.6550, L501.44557 ####[facility] [address] [place], [place], [phone] CTA Neck W/WO Contraston CTA Neck W/WO Contrast Normal [facility] Carbon dioxide, total [Moles /volume] in Central venous bloodOrdered By: Daron Benton on 05-15-2025 CO2 [Moles/Vol] 25.0 mmol/L 21.0-32.0 [facility] Chloride assayOrdered By: Sarah Benton on 05-15-2025 Chloride [Moles/Vol] 100 mmol/L 98-108 [facility] Comprehensive Metabolic Prof ilon 05-15-2025 Albumin [Mass/Vol] 3.9 g/dL Normal 3.4-4.8 [facility] Comment on above: Order Comment: Order Date: 05/15/25Order Info: 0786-1 - CMPOrder Info: 3051-0 - V5LXqiab Info: 3016-3 - TSHOrder Info: 82703-7 - IBCOrder Info: 2276-4 - FEROrder Info: 2284-8 - FOLSOrder Info: 3024-7 - T4F Performed By: #### L 100.0100, L100.9950, L506.0400, L500.4050, L501.9520, L503.6030, L503.6550, L501.30581 ####[facility] [address] [place], [address] Albumin/Globulin [Mass ratio] 1.7 {ratio} Normal 0.9-2.4 [facility] Comment on above: Order Comment: Order Date: 05/15/25Order Info: 0786-1 - CMPOrder Info: 3050-0 - A4AKkppf Info: 3 - TSHOrder Info: 02837-1 - IBCOrder Info: 2276-02 - FEROrder Info: 2284-06 - FOLSOrder Info: 7 - T4F Performed By: #### L 100.0100, L100.9950, L506.0400, L500.4050, L501.9520, L503.6030, L503.6550, L501.17919 ####[facility] [address] [place], [address] ALK PHOS 102 U/L Normal 35-104 [facility] Comment on above: Order Comment: Order Date: 05/15/25Order Info: 0786-1 - CMPOrder Info: 10 - W4LOoogd Info: 3 - TSHOrder Info: - IBCOrder Info: 2276-02 - FEROrder Info: 2284-06 - FOLSOrder Info: 3023-7 - T4F Performed By: #### L 100.0100, L100.9950, L506.0400, L500.4050, L501.9520, L503.6030, L503.6550, L501.49576 ####[facility] [address] [place], [address] ALT [Catalytic activity/Vol] 14 U/L Normal <=34 [facility] Comment on above: Order Comment: Order Date: 05/15/25Order Info: 0786-1 - CMPOrder Info: 3051-0 - W6YIsfyr Info: 3 - TSHOrder Info: - IBCOrder Info: 2276-02 - FEROrder Info: 2284-06 - FOLSOrder Info: 3024-05 - T4F Performed By: #### L 100.0100, L100.9950, L506.0400, L500.4050, L501.9520, L503.6030, L503.6550, L501.97697 ####[facility] [address] [place], [place], [address] AST [Catalytic activity/Vol] 23 U/L Normal <=31 [facility] Comment on above: Order Comment: Order Date: 05/15/25Order Info: 0786- - CMPOrder Info: 0 - Z2QPgwnk Info: 3016-01 - TSHOrder Info: - IBCOrder Info: 2276-02 - FEROrder Info: 2284-06 - FOLSOrder Info: 3024-05 - T4F Performed By: #### L 100.0100, L100.9950, L506.0400, L500.4050, L501.9520, L503.6030, L503.6550, L501.49746 ####[facility] [address] [place], [place], [address](209) Bilirubin [Mass/Vol] 0.18 mg/dL Normal 0.00-1.30 [facility] Comment on above: Order Comment: Order Date: 05/15/25Order Info: 0786- - CMPOrder Info: 0 - M0YVpuau Info: 3 - TSHOrder Info: - IBCOrder Info: 2276-02 - FEROrder Info: 2284-06 - FOLSOrder Info: 3024-05 - T4F Performed By: #### L 100.0100, L100.9950, L506.0400, L500.4050, L501.9520, L503.6030, L503.6550, L501.95636 ####[facility] [address] [place], [address] BUN/CRE 22.7 RATIO High 10-20 [facility] Comment on above: Order Comment: Order Date: 05/15/25Order Info: 0786-1 - CMPOrder Info: 3051-0 - S6TFdgis Info: 3016-3 - TSHOrder Info: 82995-1 - IBCOrder Info: 2276-02 - FEROrder Info: 8 - FOLSOrder Info: 302-7 - T4F Performed By: #### L 100.0100, L100.9950, L506.0400, L500.4050, L501.9520, L503.6030, L503.6550, L501.06990 ####[facility] [address] [place], [address] Calcium [Mass/Vol] 9.1 mg/dL Normal 7.6-11.0 [facility] Comment on above: Order Comment: Order Date: 05/15/25Order Info: 0786-1 - CMPOrder Info: 3050-0 - P9IOmmzj Info: 6-3 - TSHOrder Info: 99261-9 - IBCOrder Info: 2276-02 - FEROrder Info: 8 - FOLSOrder Info: 3023-7 - T4F Performed By: #### L 100.0100, L100.9950, L506.0400, L500.4050, L501.9520, L503.6030, L503.6550, L501.81169 ####[facility] [address] [place], [address] Chloride [Moles/Vol] 100 mmol/L Normal 98-108 [facility] Comment on above: Order Comment: Order Date: 05/15/25Order Info: 0786-1 - CMPOrder Info: 3051-0 - Z8KCvkcg Info: 3016-3 - TSHOrder Info: 67509-3 - IBCOrder Info: 2276-02 - FEROrder Info: 8 - FOLSOrder Info: 3023-7 - T4F Performed By: #### L 100.0100, L100.9950, L506.0400, L500.4050, L501.9520, L503.6030, L503.6550, L501.74715 ####[facility] [address] [place], [address] CO2 [Moles/Vol] 25.0 mmol/L Normal 21.0-32.0 [facility] Comment on above: Order Comment: Order Date: 05/15/25Order Info: 0786-1 - CMPOrder Info: 3050-0 - W0YSoabb Info: 3 - TSHOrder Info: 30538-8 - IBCOrder Info: 2276-02 - FEROrder Info: 2284-06 - FOLSOrder Info: 7 - T4F Performed By: #### L 100.0100, L100.9950, L506.0400, L500.4050, L501.9520, L503.6030, L503.6550, L501.21595 ####[facility] [address] [place], [place], [phone]) Creatinine [Mass/Vol] 1.13 mg/dL Normal 0.70-1.20 [facility] Comment on above: Order Comment: Order Date: 05/15/25Order Info: 0786-1 - CMPOrder Info: 3050-0 - F7XDwogp Info: 3015-3 - TSHOrder Info: 09554-4 - IBCOrder Info: 2276-02 - FEROrder Info: 8 - FOLSOrder Info: 3023-7 - T4F Performed By: #### L 100.0100, L100.9950, L506.0400, L500.4050, L501.9520, L503.6030, L503.6550, L501.70699 ####[facility] [address] [place], [address] GAP 11 Normal 5-15 [facility] Comment on above: Order Comment: Order Date: 05/15/25Order Info: 0786-1 - CMPOrder Info: 3051-0 - H5OTfsiq Info: 6-3 - TSHOrder Info: 71176-7 - IBCOrder Info: 2276-02 - FEROrder Info: 2284-06 - FOLSOrder Info: 7 - T4F Performed By: #### L 100.0100, L100.9950, L506.0400, L500.4050, L501.9520, L503.6030, L503.6550, L501.37993 ####[facility] [address] [place], [place], [phone] GFR/1.73 sq M.predicted among non-blacks MDRD (S/P/Bld) [Vol rate/Area] 52 mL/min/{1.73_m2} Low >60 [facility] Comment on above: Order Comment: Order Date: 05/15/25Order Info: 07-1 - CMPOrder Info: 305-0 - K5UUiyrg Info: 3 - TSHOrder Info: [id number] - IBCOrder Info: 2276-02 - FEROrder Info: 2284-06 - FOLSOrder Info: 7 - T4F Result Comment: mL/m in/1.73m2 CKD-EPI Creatinine Equation (2020) Performed By: #### L 100.0100, L100.9950, L506.0400, L500.4050, L501.9520, L503.6030, L503.6550, L501.48066 ####[facility] [address] [place], [address] Globulin (S) [Mass/Vol] 2.3 g/dL Normal 2.2-4.2 W [facility] Comment on above: Order Comment: Order Date: 05/15/25Order Info: 0786-1 - CMPOrder Info: 3051-0 - R8OKmczs Info: 6-3 - TSHOrder Info: 73371-3 - IBCOrder Info: 2276-02 - FEROrder Info: 2284-06 - FOLSOrder Info: 7 - T4F Performed By: #### L 100.0100, L100.9950, L506.0400, L500.4050, L501.9520, L503.6030, L503.6550, L501.17242 ####[facility] [address] [place], [address] Glucose [Mass/Vol] 105 mg/dL High 70-99 [facility] Comment on above: Order Comment: Order Date: 05/15/25Order Info: 07-1 - CMPOrder Info: 0 - T8MLxsmu Info: 3016-01 - TSHOrder Info: - IBCOrder Info: 2276-02 - FEROrder Info: 2284-06 - FOLSOrder Info: 3024-05 - T4F Performed By: #### L 100.0100, L100.9950, L506.0400, L500.4050, L501.9520, L503.6030, L503.6550, L501.75877 ####[facility] [address] [place], [address] Potassium [Moles/Vol] 4.5 mmol/L Normal 3.3-5.1 [facility] Comment on above: Order Comment: Order Date: 05/15/25Order Info: 0786-1 - CMPOrder Info: 0 - E4IAncuz Info: 3 - TSHOrder Info: - IBCOrder Info: 2276-02 - FEROrder Info: 2284-06 - FOLSOrder Info: 7 - T4F Performed By: #### L 100.0100, L100.9950, L506.0400, L500.4050, L501.9520, L503.6030, L503.6550, L501.20616 ####[facility] [address] [place], [address] Sodium [Moles/Vol] 136 mmol/L Normal 133-145 [facility] Comment on above: Order Comment: Order Date: 05/15/25Order Info: 0786-1 - CMPOrder Info: 3051-0 - B8DUvxde Info: 3015-3 - TSHOrder Info: 47496-4 - IBCOrder Info: 4 - FEROrder Info: 2284-06 - FOLSOrder Info: 3024-7 - T4F Performed By: #### L 100.0100, L100.9950, L506.0400, L500.4050, L501.9520, L503.6030, L503.6550, L501.66016 ####[facility] [address] [place], [place], [phone]) T PROT 6.2 g/dL Normal 5.9-8.4 [facility] Comment on above: Order Comment: Order Date: 05/15/25Order Info: 07-1 - CMPOrder Info: 0 - A7HPimro Info: 3 - TSHOrder Info: - IBCOrder Info: 2276-02 - FEROrder Info: 2284-06 - FOLSOrder Info: 3024-7 - T4F Performed By: #### L 100.0100, L100.9950, L506.0400, L500.4050, L501.9520, L503.6030, L503.6550, L501.80608 ####[facility] [address] [place], [place], [phone] Urea nitrogen [Mass/Vol] 26 mg/dL High 4-19 [facility] Comment on above: Order Comment: Order Date: 05/15/25Order Info: 0786-1 - CMPOrder Info: 3051-0 - I5LIdpgq Info: 3015-3 - TSHOrder Info: 09931-3 - IBCOrder Info: 4 - FEROrder Info: 8 - FOLSOrder Info: 3024-7 - T4F Performed By: #### L 100.0100, L100.9950, L506.0400, L500.4050, L501.9520, L503.6030, L503.6550, L501.08574 ####[facility] [address] [place], [place], [phone] Eosinophil percentageOrdered By: Daron Benton on 05-15-2025 Eosinophils/100 WBC (Bld) 9.3 % High 0-5 [facility] Erythrocyte distribution wid th ratioOrdered By: Daron Benton on 05-15-2025 Erythrocyte distribution width (RBC) [Ratio] 19.3 % High 11.6-14.6 [facility] Erythrocyte distribution wid th standard deviationOrdered By: Daron Benton on 05-15-2025 Erythrocyte distribution width (RBC) [Ratio] 61.2 fl High 35.1-43.9 [facility] Ferritinon 05-15-2025 Ferritin [Mass/Vol] 19 ng/mL Low 22-378 [facility] Comment on above: Order Comment: Order Date: 05/15/25Order Info: 0786-1 - CMPOrder Info: 3051-0 - I6IPkiww Info: 3016-3 - TSHOrder Info: 64755-6 - IBCOrder Info: 2276-4 - FEROrder Info: 2284-8 - FOLSOrder Info: 3024-7 - T4F Performed By: #### L 100.0100, L100.9950, L506.0400, L500.4050, L501.9520, L503.6030, L503.6550, L501.28702 ####[facility] [address] [place], [place], [phone] Folate [Moles/volume] in Ser um or PlasmaOrdered By: Daron Benton on 05-15-2025 Folate [Moles/Vol] 8.24 ng/mL 4.60-34.80 [facility] Folates,Serum (Folic Acid)on 05-15-2025 FOLATES,SERUM 8.24 ng/mL Normal 4.60-34.80 [facility] Comment on above: Order Comment: N Performed By: #### L 3300.6750, L503.0106, L506.0200 ####[facility] [address] [place], [place], [address] Free T3on 05-15-2025 Free T3 [Mass/Vol] 2.7 pg/mL Normal 2.18-3.98 [facility] Comment on above: Order Comment: Order Date: 05/15/25Order Info: 0786-1 - CMPOrder Info: 3051-0 - M5QBmiqc Info: 3016-3 - TSHOrder Info: 53488-7 - IBCOrder Info: 2276-4 - FEROrder Info: 2284-8 - FOLSOrder Info: 3024-7 - T4F Performed By: #### L 100.0100, L100.9950, L506.0400, L500.4050, L501.9520, L503.6030, L503.6550, L501.12986 ####[facility] [address] [place], [address] Free C1Xiheacs By: Daron swanson on 05-15-2025 Free T3 [Mass/Vol] 2.7 pg/mL 2.18-3.98 [facility] Glomerular filtration rate ( GFR) estimation/1.73 sq m using serum, plasma, or whole bOrdered By: Daron Benton on 05-15-2025 GFR/1.73 sq M.predicted among non-blacks MDRD (S/P/Bld) [Vol rate/Area] 52 mL/min/{1.73_m2} Low >60 [facility] Hematocrit Auto (Bld) [Volum e fraction]Ordered By: Daron Benton on 05-15-2025 Hematocrit (Bld) [Volume fraction] 24.4 % Low 37-47 [facility] Hemoglobin measurementOrdere d By: Daron Benton on 05-15-2025 Hemoglobin (Bld) [Mass/Vol] 7.4 g/dL Low 12.0-15.0 [facility] Hypochromatic red blood cell detectionOrdered By: Daron Benton on 05-15-2025 Hypochromia Ql (Bld) 1+ [facility] Immature granulocytes/100 WB C Auto (Bld)Ordered By: Daron Benton on 05-15-2025 Immature granulocytes/100 WBC (Bld) 0.600 % 0.0-0.9 [facility] Iron measurement (mass/mass) Ordered By: Daron Benton on 05-15-2025 Iron (Unsp spec) [Mass/Mass] 48 ug/dL Low 50-170 [facility] Iron+Iron Binding Capacityon 05-15-2025 Iron [Mass/Vol] 48 ug/dL Low 50-170 [facility] Comment on above: Order Comment: Order Date: 05/15/25Order Info: 0786-1 - CMPOrder Info: 3051-0 - B8ICbckg Info: 3 - TSHOrder Info: 59600-6 - IBCOrder Info: 2276-02 - FEROrder Info: 2284-06 - FOLSOrder Info: 7 - T4F Performed By: #### L 100.0100, L100.9950, L506.0400, L500.4050, L501.9520, L503.6030, L503.6550, L501.98513 ####[facility] [address] [place], [address] IRON SATURATION 13.0 Normal 13-59 [facility] Comment on above: Order Comment: Order Date: 05/15/25Order Info: 0786-1 - CMPOrder Info: 3050-0 - G2XZcljx Info: 3 - TSHOrder Info: 05242-0 - IBCOrder Info: 2276-02 - FEROrder Info: 2284-06 - FOLSOrder Info: 7 - T4F Performed By: #### L 100.0100, L100.9950, L506.0400, L500.4050, L501.9520, L503.6030, L503.6550, L501.43869 ####[facility] [address] [place], [address] TIBC 379 ug/dL Normal 250-450 [facility] Comment on above: Order Comment: Order Date: 05/15/25Order Info: 0786-1 - CMPOrder Info: 3051-0 - J7WHacuw Info: 3 - TSHOrder Info: - IBCOrder Info: 2276-02 - FEROrder Info: 2284-06 - FOLSOrder Info: 3024-05 - T4F Performed By: #### L 100.0100, L100.9950, L506.0400, L500.4050, L501.9520, L503.6030, L503.6550, L501.82518 ####[facility] [address] [place], [address] UIBC 331 ug/dL Normal 228-428 [facility] Comment on above: Order Comment: Order Date: 05/15/25Order Info: 0786-1 - CMPOrder Info: 0 - [id number] Info: [id number] - TSHOrder Info: - IBCOrder Info: [id number] - FEROrder Info: [id number] - FOLSOrder Info: [id number] - T4F Performed By: #### L 100.0100, L100.9950, L506.0400, L500.4050, L501.9520, L503.6030, L503.6550, L501.95595 ####[facility] [address] [place], [address] MCV (mean corpuscular volume ) determinationOrdered By: Daron Benton on 05-15-2025 MCV (RBC) [Entitic vol] 87.5 fL 81-99 W [facility] Mean corpuscular hemoglobin (MCH) determinationOrdered By: Daron Benton on 05-15-2025 MCH (RBC) [Entitic mass] 26.5 pg Low 27.0-32.0 [facility] Monocyte percentageOrdered B y: Daron Benton on 05-15-2025 Monocytes/100 WBC (Bld) 5.9 % 0-10 W [facility] Neutrophil percentageOrdered By: Daron Benton on 05-15-2025 Neutrophils/100 WBC (Bld) 70.4 % High 47-70 [facility] No Panel InformationOrdered By: Daron Benton on 05-15-2025 1+ [facility] 23 U/L <32 [facility] 331 ug/dL 228-428 [facility] Platelet countOrdered By: Sarah Benton on 05-15-2025 Platelets (Bld) [#/Vol] 213 10*3/uL 150-450 [facility] Platelet estimateOrdered By: Daron Benton on 05-15-2025 Platelets LM Ql (Bld) ADEQUATE ADEQ [facility] Potassium measurement (mass/ volume)Ordered By: Daron Benton on 05-15-2025 Potassium (Unsp spec) [Mass/Vol] 4.5 mmol/L 3.3-5.1 [facility] RBC Auto (Bld) [#/Vol]Ordere d By: Daron Benton on 05-15-2025 RBC (Bld) [#/Vol] 2.79 10*6/uL Low 4.2-5.4 [facility] Retic Panelon 05-15-2025 IM RET FRACTION 25.70 High 3.00-15.90 [facility] Comment on above: Order Comment: Order Date: 05/15/25Order Info: [id number] - CBCDOrder Info: [id number] - RETIC Performed By: #### L 100.0100, L100.9950, L506.0400, L500.4050, L501.9520, L503.6030, L503.6550, L501.08560 ####[facility] [address] [place], [place], [address] RET-HE 25.2 pg Low 30-35 [facility] Comment on above: Order Comment: Order Date: 05/15/25Order Info: [id number] - CBCDOrder Info: [id number] - RETIC Performed By: #### L 100.0100, L100.9950, L506.0400, L500.4050, L501.9520, L503.6030, L503.6550, L501.02420 ####[facility] [address] [place], [address] Retic Count 4.47 High 0.5-1.5 [facility] Comment on above: Order Comment: Order Date: 05/15/25Order Info: [id number] - CBCDOrder Info: [id number] - RETIC Performed By: #### L 100.0100, L100.9950, L506.0400, L500.4050, L501.9520, L503.6030, L503.6550, L501.58796 ####[facility] [address] [place], [address] Reticulocyte hemoglobin equi valent (RET-He) measurementOrdered By: Daron Benton on 05-15-2025 Hemoglobin (Reticulocytes) [Entitic mass] 25.2 pg Low 30-35 [facility] Reticulocytes Auto (Bld) [#/ Vol]Ordered By: Daron Benton on 05-15-2025 Reticulocytes/100 RBC (Bld) 4.47 % High 0.5-1.5 [facility] Serum creatinine measurement (mass/volume)Ordered By: Daron Benton on 05-15-2025 Creatinine [Mass/Vol] 1.13 mg/dL 0.70-1.20 [facility] Serum globulin measurementOr dered By: Daron Benton on 05-15-2025 Globulin (S) [Mass/Vol] 2.3 g/dL 2.2-4.2 W [facility] Serum glucose measurement (m ass/volume)Ordered By: Daron Benton on 05-15-2025 Glucose [Mass/Vol] 105 mg/dL High 70-99 [facility] Serum or plasma alanine pizarro otransferase (ALT) measurementOrdered By: Daron Bneton on 05-15-2025 ALT [Catalytic activity/Vol] 14 U/L <35 [facility] Serum or plasma albumin stefania urement (mass/volume)Ordered By: Daron Benton on 05-15-2025 Albumin [Mass/Vol] 3.9 g/dL 3.4-4.8 [facility] Serum or plasma albumin/glob ulin mass ratioOrdered By: Daron Benton on 05-15-2025 Albumin/Globulin [Mass ratio] 1.7 {ratio} 0.9-2.4 [facility] Serum or plasma alkaline anthony sphatase measurementOrdered By: Daron Benton on 05-15-2025 ALP [Catalytic activity/Vol] 102 U/L 35-104 [facility] Serum or plasma calcium stefania urement (mass/volume)Ordered By: Daron Benton on 05-15-2025 Calcium [Mass/Vol] 9.1 mg/dL 7.6-11.0 [facility] Serum or plasma ferritin felicia surement (mass/volume)Ordered By: Daron Benton on 05-15-2025 Ferritin [Mass/Vol] 19 ng/mL Low 22-378 [facility] Serum or plasma iron saturat ion measurement (mass fraction)Ordered By: Daron Benton on 05-15-2025 Iron saturation [Mass fraction] 13.0 % 13-59 [facility] Serum or plasma thyroperoxid ase antibody assay (units/volume)Ordered By: Daron Benton on 05-15-2025 TPO Ab Qn [IU]/mL 0-34 [facility] Serum or plasma urea nitroge n measurement (mass/volume)Ordered By: Daron Benton on 05-15-2025 Urea nitrogen [Mass/Vol] 26 mg/dL High 4-19 [facility] Sodium levelOrdered By: Daron Benton on 05-15-2025 Sodium [Moles/Vol] 136 mmol/L 133-145 [facility] T4 Free Directon 05-15-2025 T4 FREE DIRECT 1.50 ng/dL High 0.76-1.46 [facility] Comment on above: Order Comment: Order Date: 05/15/25Order Info: [id number] - CMPOrder Info: [id number] - H8KHwnce Info: [id number] - TSHOrder Info: [id number] - IBCOrder Info: [id number] - FEROrder Info: [id number] - FOLSOrder Info: [id number] - T4F Performed By: #### L 100.0100, L100.9950, L506.0400, L500.4050, L501.9520, L503.6030, L503.6550, L501.06841 ####[facility] [address] [place], [place], [id number] T4 freeOrdered By: Daron swanson on 05-15-2025 Free T4 [Mass/Vol] 1.50 ng/dL High 0.76-1.46 [facility] TSH DL <= 0.005 mIU/L QnOrde red By: Daron Benton on 05-15-2025 TSH Qn 1.680 uIU/mL 0.300-4.20 0 [facility] Thyroid Stim Hormone (TSH)on 05-15-2025 TSH 1.680 uIU/mL Normal 0.300-4.20 0 [facility] Comment on above: Order Comment: Order Date: 05/15/25Order Info: [id number] - CMPOrder Info: 0 - [id number] Info: 3 - TSHOrder Info: [id number] - IBCOrder Info: [id number] - FEROrder Info: [id number] - FOLSOrder Info: [id number] - T4F Performed By: #### L 100.0100, L100.9950, L506.0400, L500.4050, L501.9520, L503.6030, L503.6550, L501.30360 ####[facility] [address] [place], [address] Total proteinOrdered By: Nila Benton on 05-15-2025 Protein [Mass/Vol] 6.2 g/dL 5.9-8.4 [facility] Vitamin B12on 05-15-2025 Cobalamin (Vitamin B12) [Mass/Vol] 366 pg/mL Normal 180-914 [facility] Comment on above: Order Comment: Order Date: 05/15/25Order Info: [id number] - CMPOrder Info: [id number] - Y7IVksub Info: 3015-3 - TSHOrder Info: [id number] - IBCOrder Info: [id number] - FEROrder Info: [id number] - FOLSOrder Info: [id number] - T4F Performed By: #### L 3300.6750, L503.0106, L506.0200 ####[facility] [address] [place], [address] Vitamin B12 ser/plasOrdered By: Daron Benton on 05-15-2025 Cobalamin (Vitamin B12) [Mass/Vol] 366 pg/mL 180-914 [facility] White blood cell (WBC) count Ordered By: Daron Benton on 05-15-2025 WBC (Bld) [#/Vol] 8.4 10*3/uL 4.4-11.0 [facility] 36on 05-06-2025 36 Faxed New Auth to [facility] @ [phone], Valid 05/06/25 Thru 07/05/25 Brain MRI wo Contrast. Normal [facility] Gastroenterology Visit Repor ton 05-06-2025 Gastroenterology Visit Report Normal [facility] 36on 05-05-2025 36 [facility] phone number: [phone] Relationship to Patient: Imaging Provider: Robert Practice: neuro Chief Complaint/Reason for Call: Viki states patients prior auth is expiring and will need a new one for patient schedule MRI on 05/20 @130 fax # [phone]. Normal [facility] 36on 04-24-2025 36 Baclofen 20mg sent t o Sp in [place]. Normal [facility] 36 Name of caller: Parvez santos Contact phone number: [phone] Relationship to Patient: patient Provider: AURORA Lynn Practice: Neurology Chief Complaint/Reason for Call: Angélica advised that she just got out of the hospital, and she needs her Baclofen script sent in to her [facility] [address] [place] [address], [place] - [address] [[id number]]. She does not use the [facility] any longer, and she is completely out. Best time of day caller can be reached: any Patient advised that office/PCP has 24-48 business hours to return their call: Yes Normal [facility] Anion gap in Serum or Plasma Ordered By: Roman Mckeon on 04-22-2025 Anion gap [Moles/Vol] 12 mmol/L 5-15 [facility] BUN/creatinine ratioOrdered By: Roman Mckeon on 04-22-2025 Urea nitrogen/Creatinine [Mass ratio] 7.0 mg/mg Low 10-20 [facility] Basic Metabolic Profile (BMP )on 04-22-2025 BUN/CRE 7.0 RATIO Low 10-20 [facility] Comment on above: Performed By: #### L 500.2500, L100.0500 ####[facility] [address] [place], [address] Calcium [Mass/Vol] 8.3 mg/dL Normal 7.6-11.0 [facility] Comment on above: Performed By: #### L 500.2500, L100.0500 ####[facility] [address] [place], [address] Chloride [Moles/Vol] 107 mmol/L Normal 98-108 [facility] Comment on above: Performed By: #### L 500.2500, L100.0500 ####[facility] [address] [place], [address] CO2 [Moles/Vol] 18.8 mmol/L Low 21.0-32.0 [facility] Comment on above: Performed By: #### L 500.2500, L100.0500 ####[facility] [address] [place], [address] Creatinine [Mass/Vol] 1.08 mg/dL Normal 0.70-1.20 [facility] Comment on above: Performed By: #### L 500.2500, L100.0500 ####[facility] [address] [place], [address] ECRCL 34.97 ml/min Low 50-250 [facility] Comment on above: Performed By: #### L 500.2500, L100.0500 ####[facility] [address] [place], [address] GAP 12 Normal 5-15 [facility] Comment on above: Performed By: #### L 500.2500, L100.0500 ####[facility] [address] [place], [address] GFR/1.73 sq M.predicted among non-blacks MDRD (S/P/Bld) [Vol rate/Area] 55 mL/min/{1.73_m2} Low >60 [facility] Comment on above: Result Comment: mL/m in/1.73m2 CKD-EPI Creatinine Equation (2020) Performed By: #### L 500.2500, L100.0500 ####[facility] [address] [place], [address] Glucose [Mass/Vol] 89 mg/dL Normal 70-99 [facility] Comment on above: Performed By: #### L 500.2500, L100.0500 ####[facility] [address] [place], [address] Potassium [Moles/Vol] 3.8 mmol/L Normal 3.3-5.1 [facility] Comment on above: Performed By: #### L 500.2500, L100.0500 ####[facility] [address] [place], [address] Sodium [Moles/Vol] 137 mmol/L Normal 133-145 [facility] Comment on above: Performed By: #### L 500.2500, L100.0500 ####[facility] [address] [place], [address] Urea nitrogen [Mass/Vol] 8 mg/dL Normal 4-19 [facility] Comment on above: Performed By: #### L 500.2500, L100.0500 ####[facility] [address] [place], [address] CBC-Complete Blood Cnt No Di ffon 04-22-2025 Erythrocyte distribution width (RBC) [Ratio] 17.5 % High 11.6-14.6 [facility] Comment on above: Performed By: #### L 500.2500, L100.0500 ####[facility] [address] [place], [address] Hematocrit (Bld) [Volume fraction] 29.2 % Low 37-47 [facility] Comment on above: Performed By: #### L 500.2500, L100.0500 ####[facility] [address] [place], [address] Hemoglobin (Bld) [Mass/Vol] 9.4 g/dL Low 12.0-15.0 [facility] Comment on above: Performed By: #### L 500.2500, L100.0500 ####[facility] [address] [place], [address] MCH (RBC) [Entitic mass] 26.8 pg Low 27.0-32.0 [facility] Comment on above: Performed By: #### L 500.2500, L100.0500 ####[facility] [address] [place], [address] MCHC (RBC) [Mass/Vol] 32.2 g/dL Normal 32-36 [facility] Comment on above: Performed By: #### L 500.2500, L100.0500 ####[facility] [address] [place], [address] MCV (RBC) [Entitic vol] 83.2 fL Normal 81-99 W [facility] Comment on above: Performed By: #### L 500.2500, L100.0500 ####[facility] [address] [place], [address] Platelet mean volume (Bld) [Entitic vol] 9.7 fL Normal 6.2-12.0 [facility] Comment on above: Performed By: #### L 500.2500, L100.0500 ####[facility] [address] [place], [address] Platelets (Bld) [#/Vol] 152 10*3/uL Normal 150-450 [facility] Comment on above: Performed By: #### L 500.2500, L100.0500 ####[facility] [address] [place], [address] RBC (Bld) [#/Vol] 3.51 10*6/uL Low 4.2-5.4 [facility] Comment on above: Performed By: #### L 500.2500, L100.0500 ####[facility] [address] [place], [address] RDW SD 52.6 fl High 35.1-43.9 [facility] Comment on above: Performed By: #### L 500.2500, L100.0500 ####[facility] [address] [place], [address] WBC (Bld) [#/Vol] 7.1 10*3/uL Normal 4.4-11.0 [facility] Comment on above: Performed By: #### L 500.2500, L100.0500 ####[facility] [address] [place], [address] Carbon dioxide, total [Moles /volume] in Central venous bloodOrdered By: Roman Mckeon on 04-22-2025 CO2 [Moles/Vol] 18.8 mmol/L Low 21.0-32.0 [facility] Chloride assayOrdered By: Edgar Mckeon on 04-22-2025 Chloride [Moles/Vol] 107 mmol/L 98-108 [facility] Colonoscopy Reporton 025 Colonoscopy Report Normal [facility] Erythrocyte distribution wid th ratioOrdered By: Roman Mckeon on 04-22-2025 Erythrocyte distribution width (RBC) [Ratio] 17.5 % High 11.6-14.6 [facility] Erythrocyte distribution wid th standard deviationOrdered By: Roman Mckeon on 04-22-2025 Erythrocyte distribution width (RBC) [Ratio] 52.6 fl High 35.1-43.9 [facility] Glomerular filtration rate ( GFR) estimation/1.73 sq m using serum, plasma, or whole bOrdered By: Roman Mckeon on 04-22-2025 GFR/1.73 sq M.predicted among non-blacks MDRD (S/P/Bld) [Vol rate/Area] 55 mL/min/{1.73_m2} Low >60 [facility] Hematocrit Auto (Bld) [Volum e fraction]Ordered By: Roman Mckeon on 04-22-2025 Hematocrit (Bld) [Volume fraction] 29.2 % Low 37-47 [facility] Hemoglobin measurementOrdere d By: Roman Mckeon on 04-22-2025 Hemoglobin (Bld) [Mass/Vol] 9.4 g/dL Low 12.0-15.0 [facility] MCV (mean corpuscular volume ) determinationOrdered By: Roman Mckeon on 04-22-2025 MCV (RBC) [Entitic vol] 83.2 fL 81-99 W [facility] MR/POSTOP.ANEon 04-22-2025 MR/POSTOP.ANE Normal [facility] Mean corpuscular hemoglobin (MCH) determinationOrdered By: Roman Mckeon on 04-22-2025 MCH (RBC) [Entitic mass] 26.8 pg Low 27.0-32.0 [facility] Platelet countOrdered By: Edgar Mckeon on 04-22-2025 Platelets (Bld) [#/Vol] 152 10*3/uL 150-450 [facility] Potassium measurement (mass/ volume)Ordered By: Roman Mckeon on 04-22-2025 Potassium (Unsp spec) [Mass/Vol] 3.8 mmol/L 3.3-5.1 [facility] RBC Auto (Bld) [#/Vol]Ordere d By: Roman Mckeon on 04-22-2025 RBC (Bld) [#/Vol] 3.51 10*6/uL Low 4.2-5.4 [facility] Serum creatinine measurement (mass/volume)Ordered By: Roman Mckeon on 04-22-2025 Creatinine [Mass/Vol] 1.08 mg/dL 0.70-1.20 [facility] Serum glucose measurement (m ass/volume)Ordered By: Roman Mckeon on 04-22-2025 Glucose [Mass/Vol] 89 mg/dL 70-99 [facility] Serum or plasma calcium stefania urement (mass/volume)Ordered By: Roman Mckeon on 04-22-2025 Calcium [Mass/Vol] 8.3 mg/dL 7.6-11.0 [facility] Serum or plasma urea nitroge n measurement (mass/volume)Ordered By: Roman Mckeon on 04-22-2025 Urea nitrogen [Mass/Vol] 8 mg/dL 4-19 [facility] Sodium levelOrdered By: Domingo Mckeon on 04-22-2025 Sodium [Moles/Vol] 137 mmol/L 133-145 [facility] Surgery Specimen Level Willi 04-22-2025 Surgery Specimen Level IV Normal [facility] Comment on above: Performed By: #### P SUIV ####[facility] [address] [place], [address] White blood cell (WBC) count Ordered By: Roman Mckeon on 04-22-2025 WBC (Bld) [#/Vol] 7.1 10*3/uL 4.4-11.0 [facility] Basic Metabolic Profile (BMP )on 04-21-2025 BUN/CRE 9.9 RATIO Low 10-20 [facility] Comment on above: Performed By: #### L 100.0500, L500.2500 ####[facility] [address] [place], [address] Calcium [Mass/Vol] 8.7 mg/dL Normal 7.6-11.0 [facility] Comment on above: Performed By: #### L 100.0500, L500.2500 ####[facility] [address] [place], [address] Chloride [Moles/Vol] 107 mmol/L Normal 98-108 [facility] Comment on above: Performed By: #### L 100.0500, L500.2500 ####[facility] [address] [place], [address] CO2 [Moles/Vol] 24.7 mmol/L Normal 21.0-32.0 [facility] Comment on above: Performed By: #### L 100.0500, L500.2500 ####[facility] [address] [place], [address] Creatinine [Mass/Vol] 1.21 mg/dL High 0.70-1.20 [facility] Comment on above: Performed By: #### L 100.0500, L500.2500 ####[facility] [address] [place], [address] ECRCL 31.21 ml/min Low 50-250 [facility] Comment on above: Performed By: #### L 100.0500, L500.2500 ####[facility] [address] [place], [address] GAP 9 Normal 5-15 [facility] Comment on above: Performed By: #### L 100.0500, L500.2500 ####[facility] [address] [place], [address] GFR/1.73 sq M.predicted among non-blacks MDRD (S/P/Bld) [Vol rate/Area] 48 mL/min/{1.73_m2} Low >60 [facility] Comment on above: Result Comment: mL/m in/1.73m2 CKD-EPI Creatinine Equation (2020) Performed By: #### L 100.0500, L500.2500 ####[facility] [address] [place], [address] Glucose [Mass/Vol] 85 mg/dL Normal 70-99 [facility] Comment on above: Performed By: #### L 100.0500, L500.2500 ####[facility] [address] [place], [address] Potassium [Moles/Vol] 3.1 mmol/L Low 3.3-5.1 [facility] Comment on above: Performed By: #### L 100.0500, L500.2500 ####[facility] [address] [place], [address] Sodium [Moles/Vol] 141 mmol/L Normal 133-145 [facility] Comment on above: Performed By: #### L 100.0500, L500.2500 ####[facility] [address] [place], [address] Urea nitrogen [Mass/Vol] 12 mg/dL Normal 4-19 [facility] Comment on above: Performed By: #### L 100.0500, L500.2500 ####[facility] [address] [place], [address] Bedside Glucoseon 04-21-2025 FINGERSTICK GLU 109 mg/dL High 74-106 [facility] Comment on above: Result Comment: YONY HARTMANN OF PATIENT CARE PER NURSING PROTOCOL Performed By: #### L 501.080 ####[facility] [address] [place], [address] Brain/Head without Contrasto n 04-21-2025 Brain/Head without Contrast Normal [facility] CBC-Complete Blood Cnt No Di ffon 04-21-2025 Erythrocyte distribution width (RBC) [Ratio] 17.2 % High 11.6-14.6 [facility] Comment on above: Performed By: #### L 100.0500, L500.2500 ####[facility] [address] [place], [address] Hematocrit (Bld) [Volume fraction] 31.7 % Low 37-47 [facility] Comment on above: Performed By: #### L 100.0500, L500.2500 ####[facility] [address] [place], [address] Hemoglobin (Bld) [Mass/Vol] 10.1 g/dL Low 12.0-15.0 [facility] Comment on above: Performed By: #### L 100.0500, L500.2500 ####[facility] [address] [place], [address] MCH (RBC) [Entitic mass] 26.5 pg Low 27.0-32.0 [facility] Comment on above: Performed By: #### L 100.0500, L500.2500 ####[facility] [address] [place], [address] MCHC (RBC) [Mass/Vol] 31.9 g/dL Low 32-36 [facility] Comment on above: Performed By: #### L 100.0500, L500.2500 ####[facility] [address] [place], [address] MCV (RBC) [Entitic vol] 83.2 fL Normal 81-99 [facility] Comment on above: Performed By: #### L 100.0500, L500.2500 ####[facility] [address] [place], [address] Platelet mean volume (Bld) [Entitic vol] 9.4 fL Normal 6.2-12.0 [facility] Comment on above: Performed By: #### L 100.0500, L500.2500 ####[facility] [address] [place], [address] Platelets (Bld) [#/Vol] 174 10*3/uL Normal 150-450 [facility] Comment on above: Performed By: #### L 100.0500, L500.2500 ####[facility] [address] [place], [address] RBC (Bld) [#/Vol] 3.81 10*6/uL Low 4.2-5.4 [facility] Comment on above: Performed By: #### L 100.0500, L500.2500 ####[facility] [address] [place], [address] RDW SD 51.9 fl High 35.1-43.9 [facility] Comment on above: Performed By: #### L 100.0500, L500.2500 ####[facility] [address] [place], [address] WBC (Bld) [#/Vol] 5.3 10*3/uL Normal 4.4-11.0 [facility] Comment on above: Performed By: #### L 100.0500, L500.2500 ####[facility] [address] [place], [address] EGD Reporton 04-21-2025 EGD Report Normal [facility] Glucose measurement at [facility] deOrdered By: Roman Mckeon on 04-21-2025 Glucose [Mass/Vol] 109 mg/dL High 74-106 [facility] MR/POSTOP.ANEon 04-21-2025 MR/POSTOP.ANE Normal [facility] MR/[id number] 04-21-2025 MR/POSTOPAN2 Normal [facility] Stool Occult Blood iFOBon STOB Positive Normal [facility] Comment on above: Performed By: #### M 100.7900 ####[facility] [address] [place], [address] Stool gastrointestinal hemog lobin detection by immunologic methodOrdered By: Sachin Murillo on 04-21-2025 Lower GI hemoglobin IA Ql (Stl) Positive Abnormal [facility] Basic Metabolic Profile (BMP )on 04-20-2025 BUN/CRE 13.9 RATIO Normal 10-20 [facility] Comment on above: Performed By: #### L 500.2500, L501.5200, L501.2300, L501.9520, L100.0500 ####[facility] [address] [place], [address] Calcium [Mass/Vol] 8.8 mg/dL Normal 7.6-11.0 [facility] Comment on above: Performed By: #### L 500.2500, L501.5200, L501.2300, L501.9520, L100.0500 ####[facility] [address] [place], [address] Chloride [Moles/Vol] 106 mmol/L Normal 98-108 [facility] Comment on above: Performed By: #### L 500.2500, L501.5200, L501.2300, L501.9520, L100.0500 ####[facility] [address] [place], [address] CO2 [Moles/Vol] 22.5 mmol/L Normal 21.0-32.0 [facility] Comment on above: Performed By: #### L 500.2500, L501.5200, L501.2300, L501.9520, L100.0500 ####[facility] [address] [place], [address] Creatinine [Mass/Vol] 1.23 mg/dL High 0.70-1.20 [facility] Comment on above: Performed By: #### L 500.2500, L501.5200, L501.2300, L501.9520, L100.0500 ####[facility] [address] [place], [address] ECRCL 30.70 ml/min Low 50-250 [facility] Comment on above: Performed By: #### L 500.2500, L501.5200, L501.2300, L501.9520, L100.0500 ####[facility] [address] [place], [address] GAP 12 Normal 5-15 [facility] Comment on above: Performed By: #### L 500.2500, L501.5200, L501.2300, L501.9520, L100.0500 ####[facility] [address] [place], [address] GFR/1.73 sq M.predicted among non-blacks MDRD (S/P/Bld) [Vol rate/Area] 47 mL/min/{1.73_m2} Low >60 [facility] Comment on above: Result Comment: mL/m in/1.73m2 CKD-EPI Creatinine Equation (2020) Performed By: #### L 500.2500, L501.5200, L501.2300, L501.9520, L100.0500 ####[facility] [address] [place], [address] Glucose [Mass/Vol] 75 mg/dL Normal 70-99 [facility] Comment on above: Performed By: #### L 500.2500, L501.5200, L501.2300, L501.9520, L100.0500 ####[facility] [address] [place], [address] Potassium [Moles/Vol] 3.4 mmol/L Normal 3.3-5.1 [facility] Comment on above: Performed By: #### L 500.2500, L501.5200, L501.2300, L501.9520, L100.0500 ####[facility] [address] [place], [address] Sodium [Moles/Vol] 140 mmol/L Normal 133-145 [facility] Comment on above: Performed By: #### L 500.2500, L501.5200, L501.2300, L501.9520, L100.0500 ####[facility] [address] [place], [address] Urea nitrogen [Mass/Vol] 17 mg/dL Normal 4-19 [facility] Comment on above: Performed By: #### L 500.2500, L501.5200, L501.2300, L501.9520, L100.0500 ####[facility] [address] [place], [address] CBC-Complete Blood Cnt No Di ffon 04-20-2025 Erythrocyte distribution width (RBC) [Ratio] 16.9 % High 11.6-14.6 [facility] Comment on above: Performed By: #### L 500.2500, L501.5200, L501.2300, L501.9520, L100.0500 ####[facility] [address] [place], [address] Hematocrit (Bld) [Volume fraction] 33.7 % Low 37-47 [facility] Comment on above: Performed By: #### L 500.2500, L501.5200, L501.2300, L501.9520, L100.0500 ####[facility] [address] [place], [address] Hemoglobin (Bld) [Mass/Vol] 10.6 g/dL Low 12.0-15.0 [facility] Comment on above: Performed By: #### L 500.2500, L501.5200, L501.2300, L501.9520, L100.0500 ####[facility] [address] [place], [address] MCH (RBC) [Entitic mass] 26.6 pg Low 27.0-32.0 [facility] Comment on above: Performed By: #### L 500.2500, L501.5200, L501.2300, L501.9520, L100.0500 ####[facility] [address] [place], [address] MCHC (RBC) [Mass/Vol] 31.5 g/dL Low 32-36 [facility] Comment on above: Performed By: #### L 500.2500, L501.5200, L501.2300, L501.9520, L100.0500 ####[facility] [address] [place], [address] MCV (RBC) [Entitic vol] 84.5 fL Normal 81-99 W [facility] Comment on above: Performed By: #### L 500.2500, L501.5200, L501.2300, L501.9520, L100.0500 ####[facility] [address] [place], [address] Platelet mean volume (Bld) [Entitic vol] 9.9 fL Normal 6.2-12.0 [facility] Comment on above: Performed By: #### L 500.2500, L501.5200, L501.2300, L501.9520, L100.0500 ####[facility] [address] [place], [address] Platelets (Bld) [#/Vol] 146 10*3/uL Low 150-450 [facility] Comment on above: Performed By: #### L 500.2500, L501.5200, L501.2300, L501.9520, L100.0500 ####[facility] [address] [place], [address] RBC (Bld) [#/Vol] 3.99 10*6/uL Low 4.2-5.4 [facility] Comment on above: Performed By: #### L 500.2500, L501.5200, L501.2300, L501.9520, L100.0500 ####[facility] [address] [place], [address] RDW SD 52.5 fl High 35.1-43.9 [facility] Comment on above: Performed By: #### L 500.2500, L501.5200, L501.2300, L501.9520, L100.0500 ####[facility] [address] [place], [address] WBC (Bld) [#/Vol] 5.0 10*3/uL Normal 4.4-11.0 [facility] Comment on above: Performed By: #### L 500.2500, L501.5200, L501.2300, L501.9520, L100.0500 ####[facility] [address] [place], [place], [address] EGD Reporton 04-20-2025 EGD Report Normal [facility] Electrocardiogram reportOrde red By: Bhavik Smiley on 04-20-2025 EKG study [facility] Work Phone: MR/POSTOP.ANEon 04-20-2025 MR/POSTOP.ANE Normal [facility] MR/[id number] 04-20-2025 MR/POSTOPAN2 Normal [facility] Magnesiumon 04-20-2025 Magnesium [Mass/Vol] 2.2 mg/dL Normal 1.5-2.2 [facility] Comment on above: Performed By: #### L 500.2500, L501.5200, L501.2300, L501.9520, L100.0500 ####[facility] [address] [place], [place], [address] Magnesium measurement (mass/ volume)Ordered By: Roman Mckeon on 04-20-2025 Magnesium (Unsp spec) [Mass/Vol] 2.2 mg/dL 1.5-2.2 [facility] Phosphoruson 04-20-2025 Phosphate [Mass/Vol] 3.5 mg/dL Normal 2.7-4.5 [facility] Comment on above: Performed By: #### L 500.2500, L501.5200, L501.2300, L501.9520, L100.0500 ####[facility] [address] [place], [address] TSH DL <= 0.005 mIU/L QnOrde red By: Storm Gómez on 04-20-2025 TSH Qn 5.620 uIU/mL High 0.300-4.20 0 [facility] Thyroid Stim Hormone (TSH)on 04-20-2025 TSH 5.620 uIU/mL High 0.300-4.20 0 [facility] Comment on above: Performed By: #### L 500.2500, L501.5200, L501.2300, L501.9520, L100.0500 ####[facility] [address] [place], [address] Absolute lymphocyte countOrd ered By: Sachin Murillo on 04-19-2025 Lymphocytes Auto (Unsp spec) [#/Vol] 0.78 10*3/uL Low 0.83-4.51 [facility] Automated lymphocyte count a s percentage of total leukocytesOrdered By: Sachin Murillo on 04-19-2025 Lymphocytes/100 WBC Auto (Unsp spec) 11.1 % Low 19-41 [facility] Basic Metabolic Profile (BMP )on 04-19-2025 BUN/CRE 16.8 RATIO Normal 10-20 [facility] Comment on above: Performed By: #### L 100.0100, L500.2500 ####[facility] [address] [place], [address] Calcium [Mass/Vol] 8.1 mg/dL Normal 7.6-11.0 [facility] Comment on above: Performed By: #### L 100.0100, L500.2500 ####[facility] [address] [place], [address] Chloride [Moles/Vol] 106 mmol/L Normal 98-108 [facility] Comment on above: Performed By: #### L 100.0100, L500.2500 ####[facility] [address] [place], [address] CO2 [Moles/Vol] 22.1 mmol/L Normal 21.0-32.0 [facility] Comment on above: Performed By: #### L 100.0100, L500.2500 ####[facility] [address] [place], [address] Creatinine [Mass/Vol] 1.17 mg/dL Normal 0.70-1.20 [facility] Comment on above: Performed By: #### L 100.0100, L500.2500 ####[facility] [address] [place], [address] ECRCL 32.28 ml/min Low 50-250 [facility] Comment on above: Performed By: #### L 100.0100, L500.2500 ####[facility] [address] [place], [address] GAP 10 Normal 5-15 [facility] Comment on above: Performed By: #### L 100.0100, L500.2500 ####[facility] [address] [place], [address] GFR/1.73 sq M.predicted among non-blacks MDRD (S/P/Bld) [Vol rate/Area] 50 mL/min/{1.73_m2} Low >60 [facility] Comment on above: Result Comment: mL/m in/1.73m2 CKD-EPI Creatinine Equation (2020) Performed By: #### L 100.0100, L500.2500 ####[facility] [address] [place], [address] Glucose [Mass/Vol] 111 mg/dL High 70-99 [facility] Comment on above: Performed By: #### L 100.0100, L500.2500 ####[facility] [address] [place], [address] Potassium [Moles/Vol] 3.6 mmol/L Normal 3.3-5.1 [facility] Comment on above: Performed By: #### L 100.0100, L500.2500 ####[facility] [address] [place], [address] Sodium [Moles/Vol] 137 mmol/L Normal 133-145 [facility] Comment on above: Performed By: #### L 100.0100, L500.2500 ####[facility] [address] [place], [address] Urea nitrogen [Mass/Vol] 20 mg/dL High 4-19 [facility] Comment on above: Performed By: #### L 100.0100, L500.2500 ####[facility] [address] [place], [address] Basophil percentageOrdered B y: Sachin Murillo on 04-19-2025 Basophils/100 WBC (Bld) 0.4 % 0-1 W [facility] CBC W/Diff, Automatedon Absolute Lymph 0.78 X10 3/uL Low 0.83-4.51 [facility] Comment on above: Performed By: #### L 100.0100, L500.2500 ####[facility] [address] [place], [address] Absolute Neut 5.2 X10 3/uL Normal 2.0-7.7 [facility] Comment on above: Performed By: #### L 100.0100, L500.2500 ####[facility] [address] [place], [address] Basophils/100 WBC (Bld) 0.4 % Normal 0-1 [facility] Comment on above: Performed By: #### L 100.0100, L500.2500 ####[facility] [address] [place], [address] Eosinophils/100 WBC (Bld) 1.9 % Normal 0-5 [facility] Comment on above: Performed By: #### L 100.0100, L500.2500 ####[facility] [address] [place], [address] Erythrocyte distribution width (RBC) [Ratio] 17.0 % High 11.6-14.6 [facility] Comment on above: Performed By: #### L 100.0100, L500.2500 ####[facility] [address] [place], [address] Hematocrit (Bld) [Volume fraction] 29.4 % Low 37-47 [facility] Comment on above: Performed By: #### L 100.0100, L500.2500 ####[facility] [address] [place], [address] Hemoglobin (Bld) [Mass/Vol] 9.5 g/dL Low 12.0-15.0 [facility] Comment on above: Performed By: #### L 100.0100, L500.2500 ####[facility] [address] [place], [address] IG% 0.400 Normal 0.0-0.9 [facility] Comment on above: Result Comment: IG% - Immature Granulocytes (promyelocytes, myelocytes andmetamyelocytes) > 1% indicates that a LEFT SHIFT is Present. Performed By: #### L 100.0100, L500.2500 ####[facility] [address] [place], [address] Lymphocytes/100 WBC (Bld) 11.1 % Low 19-41 [facility] Comment on above: Performed By: #### L 100.0100, L500.2500 ####[facility] [address] [place], [address] MCH (RBC) [Entitic mass] 27.1 pg Normal 27.0-32.0 [facility] Comment on above: Performed By: #### L 100.0100, L500.2500 ####[facility] [address] [place], [address] MCHC (RBC) [Mass/Vol] 32.3 g/dL Normal 32-36 [facility] Comment on above: Performed By: #### L 100.0100, L500.2500 ####[facility] [address] [place], [address] MCV (RBC) [Entitic vol] 84.0 fL Normal 81-99 W [facility] Comment on above: Performed By: #### L 100.0100, L500.2500 ####[facility] [address] [place], [address] Monocytes/100 WBC (Bld) 11.3 % High 0-10 W [facility] Comment on above: Performed By: #### L 100.0100, L500.2500 ####[facility] [address] [place], [address] Neutrophils/100 WBC (Bld) 74.9 % High 47-70 [facility] Comment on above: Performed By: #### L 100.0100, L500.2500 ####[facility] [address] [place], [address] Nucleated RBC (Bld) [#/Vol] 0.3 10*3/uL Normal 0-5 [facility] Comment on above: Performed By: #### L 100.0100, L500.2500 ####[facility] [address] [place], [address] Platelet mean volume (Bld) [Entitic vol] 9.8 fL Normal 6.2-12.0 [facility] Comment on above: Performed By: #### L 100.0100, L500.2500 ####[facility] [address] [place], [address] Platelets (Bld) [#/Vol] 133 10*3/uL Low 150-450 [facility] Comment on above: Performed By: #### L 100.0100, L500.2500 ####[facility] [address] [place], [address] RBC (Bld) [#/Vol] 3.50 10*6/uL Low 4.2-5.4 [facility] Comment on above: Performed By: #### L 100.0100, L500.2500 ####[facility] [address] [place], [address] RDW SD 51.9 fl High 35.1-43.9 [facility] Comment on above: Performed By: #### L 100.0100, L500.2500 ####[facility] [address] [place], [address] WBC (Bld) [#/Vol] 7.0 10*3/uL Normal 4.4-11.0 [facility] Comment on above: Performed By: #### L 100.0100, L500.2500 ####[facility] [address] [place], [address] Eosinophil percentageOrdered By: Sachin Murillo on 04-19-2025 Eosinophils/100 WBC (Bld) 1.9 % 0-5 [facility] HH, Hemoglobin AND Hematocri ton 04-19-2025 HCT Normal 37-47 [facility] Comment on above: Result Comment: CBC BEING DONE H H IS IN CBC Performed By: #### L 100.0600 ####[facility] [address] [place], [address] HGB Normal 12.0-15.0 [facility] Comment on above: Result Comment: CBC BEING DONE H H IS IN CBC Performed By: #### L 100.0600 ####[facility] [address] [place], [address] Hematocrit (Bld) [Volume fraction] 20.6 % Low 37-47 [facility] Comment on above: Performed By: #### L 100.0600 ####[facility] [address] [place], [address] Hemoglobin (Bld) [Mass/Vol] 6.3 g/dL Low 12.0-15.0 [facility] Comment on above: Performed By: #### L 100.0600 ####[facility] [address] [place], [place], [id number] Immature granulocytes/100 WB C Auto (Bld)Ordered By: Sachin Murillo on 04-19-2025 Immature granulocytes/100 WBC (Bld) 0.400 % 0.0-0.9 [facility] L499.0043on 04-19-2025 Trop T High Sen 24 ng/L High <=14 [facility] Comment on above: Performed By: #### L 499.0043 ####[facility] [address] [place], [place], [id number] Lactic Acidon 04-19-2025 Lactate [Moles/Vol] mmol/L Normal 0.0-2.0 [facility] Comment on above: Performed By: #### L 503.6005 ####[facility] [address] [place], [address] Monocyte percentageOrdered B y: Sachin Murillo on 04-19-2025 Monocytes/100 WBC (Bld) 11.3 % High 0-10 W [facility] Neutrophil percentageOrdered By: Sachin Murillo on 04-19-2025 Neutrophils/100 WBC (Bld) 74.9 % High 47-70 [facility] 12 Lead EKGon 04-18-2025 12 Lead EKG Normal [facility] Absolute lymphocyte countOrd ered By: Jeffy Willoughby on 04-18-2025 Lymphocytes Auto (Unsp spec) [#/Vol] 0.83 10*3/uL 0.83-4.51 [facility] Absolute neutrophil countOrd ered By: Jeffy Willoughby on 04-18-2025 Neutrophils (Bld) [#/Vol] 7.0 10*3/uL 2.0-7.7 [facility] Anion gap in Serum or Plasma Ordered By: Jeffy Willoughby on 04-18-2025 Anion gap [Moles/Vol] 15 mmol/L 5-15 [facility] Automated lymphocyte count a s percentage of total leukocytesOrdered By: Jeffy Blocko on 04-18-2025 Lymphocytes/100 WBC Auto (Unsp spec) 9.5 % Low 19-41 [facility] BRCon 04-18-2025 RC Normal [facility] Comment on above: Result Comment: [id number] OP RC TRANSFUSED 04/19/25 [id number] OP RC TRANSFUSED 04/19/25 0801 Performed By: #### B RC ####[facility] [address] [place], [place], [id number] BUN/creatinine ratioOrdered By: Jeffy Willoughby on 04-18-2025 Urea nitrogen/Creatinine [Mass ratio] 18.9 mg/mg 10-20 [facility] Basophil percentageOrdered B y: Jeffyaura Blocko on 04-18-2025 Basophils/100 WBC (Bld) 0.6 % 0-1 W [facility] Bedside Glucoseon 04-18-2025 FINGERSTICK GLU 121 mg/dL High 74-106 [facility] Comment on above: Result Comment: YONY HARTMANN OF PATIENT CARE PER NURSING PROTOCOL Performed By: #### L 501.080 ####[facility] [address] [place], [place], [id number] Bilirubin, totalOrdered By: Jeffy Willoughby on 04-18-2025 Bilirubin [Mass/Vol] 0.35 mg/dL 0.00-1.30 [facility] CBC W/Diff, Automatedon 03-21 Absolute Lymph 0.83 X10 3/uL Normal 0.83-4.51 [facility] Comment on above: Performed By: #### L 100.0100, L501.2450, L500.4050, L503.6005, BTS ####[facility] [address] [place], [address] Absolute Neut 7.0 X10 3/uL Normal 2.0-7.7 [facility] Comment on above: Performed By: #### L 100.0100, L501.2450, L500.4050, L503.6005, BTS ####[facility] [address] [place], [address] Basophils/100 WBC (Bld) 0.6 % Normal 0-1 W [facility] Comment on above: Performed By: #### L 100.0100, L501.2450, L500.4050, L503.6005, BTS ####[facility] [address] [place], [address] Eosinophils/100 WBC (Bld) 0.5 % Normal 0-5 [facility] Comment on above: Performed By: #### L 100.0100, L501.2450, L500.4050, L503.6005, BTS ####[facility] [address] [place], [address] Erythrocyte distribution width (RBC) [Ratio] 17.3 % High 11.6-14.6 [facility] Comment on above: Performed By: #### L 100.0100, L501.2450, L500.4050, L503.6005, BTS ####[facility] [address] [place], [address] Hematocrit (Bld) [Volume fraction] 23.5 % Low 37-47 [facility] Comment on above: Performed By: #### L 100.0100, L501.2450, L500.4050, L503.6005, BTS ####[facility] [address] [place], [address] Hemoglobin (Bld) [Mass/Vol] 7.3 g/dL Low 12.0-15.0 [facility] Comment on above: Performed By: #### L 100.0100, L501.2450, L500.4050, L503.6005, BTS ####[facility] [address] [place], [address] IG% 0.500 Normal 0.0-0.9 [facility] Comment on above: Result Comment: IG% - Immature Granulocytes (promyelocytes, myelocytes andmetamyelocytes) > 1% indicates that a LEFT SHIFT is Present. Performed By: #### L 100.0100, L501.2450, L500.4050, L503.6005, BTS ####[facility] [address] [place], [address] Lymphocytes/100 WBC (Bld) 9.5 % Low 19-41 [facility] Comment on above: Performed By: #### L 100.0100, L501.2450, L500.4050, L503.6005, BTS ####[facility] [address] [place], [address] MCH (RBC) [Entitic mass] 24.6 pg Low 27.0-32.0 [facility] Comment on above: Performed By: #### L 100.0100, L501.2450, L500.4050, L503.6005, BTS ####[facility] [address] [place], [address] MCHC (RBC) [Mass/Vol] 31.1 g/dL Low 32-36 [facility] Comment on above: Performed By: #### L 100.0100, L501.2450, L500.4050, L503.6005, BTS ####[facility] [address] [place], [address] MCV (RBC) [Entitic vol] 79.1 fL Low 81-99 [address] [facility] Comment on above: Performed By: #### L 100.0100, L501.2450, L500.4050, L503.6005, BTS ####[facility] [address] [place], [address] Monocytes/100 WBC (Bld) 9.4 % Normal 0-10 W [facility] Comment on above: Performed By: #### L 100.0100, L501.2450, L500.4050, L503.6005, BTS ####[facility] [address] [place], [address] Neutrophils/100 WBC (Bld) 79.5 % High 47-70 [facility] Comment on above: Performed By: #### L 100.0100, L501.2450, L500.4050, L503.6005, BTS ####[facility] [address] [place], [address] Nucleated RBC (Bld) [#/Vol] 0.2 10*3/uL Normal 0-5 [facility] Comment on above: Performed By: #### L 100.0100, L501.2450, L500.4050, L503.6005, BTS ####[facility] [address] [place], [address] Platelet mean volume (Bld) [Entitic vol] 9.6 fL Normal 6.2-12.0 [facility] Comment on above: Performed By: #### L 100.0100, L501.2450, L500.4050, L503.6005, BTS ####[facility] [address] [place], [address] Platelets (Bld) [#/Vol] 195 10*3/uL Normal 150-450 [facility] Comment on above: Performed By: #### L 100.0100, L501.2450, L500.4050, L503.6005, BTS ####[facility] [address] [place], [address] RBC (Bld) [#/Vol] 2.97 10*6/uL Low 4.2-5.4 [facility] Comment on above: Performed By: #### L 100.0100, L501.2450, L500.4050, L503.6005, BTS ####[facility] [address] [place], [address] RDW SD 50.4 fl High 35.1-43.9 [facility] Comment on above: Performed By: #### L 100.0100, L501.2450, L500.4050, L503.6005, BTS ####[facility] [address] [place], [address] WBC (Bld) [#/Vol] 8.7 10*3/uL Normal 4.4-11.0 [facility] Comment on above: Performed By: #### L 100.0100, L501.2450, L500.4050, L503.6005, BTS ####[facility] [address] [place], [address] Carbon dioxide, total [Moles /volume] in Central venous bloodOrdered By: Jeffy Willoughby on 04-18-2025 CO2 [Moles/Vol] 21.0 mmol/L 21.0-32.0 [facility] Chloride assayOrdered By: Barrett Willoughby on 04-18-2025 Chloride [Moles/Vol] 97 mmol/L Low 98-108 [facility] Comprehensive Metabolic Prof ilon 04-18-2025 Albumin [Mass/Vol] 4.1 g/dL Normal 3.4-4.8 [facility] Comment on above: Performed By: #### L 100.0100, L501.2450, L500.4050, L503.6005, BTS ####[facility] [address] [place], [address] Albumin/Globulin [Mass ratio] 1.7 {ratio} Normal 0.9-2.4 [facility] Comment on above: Performed By: #### L 100.0100, L501.2450, L500.4050, L503.6005, BTS ####[facility] [address] [place], [address] ALK PHOS 88 U/L Normal 35-104 [facility] Comment on above: Performed By: #### L 100.0100, L501.2450, L500.4050, L503.6005, BTS ####[facility] [address] [place], [address] ALT [Catalytic activity/Vol] 8 U/L Normal <=34 [facility] Comment on above: Performed By: #### L 100.0100, L501.2450, L500.4050, L503.6005, BTS ####[facility] [address] [place], [address] AST [Catalytic activity/Vol] 16 U/L Normal <=31 [facility] Comment on above: Performed By: #### L 100.0100, L501.2450, L500.4050, L503.6005, BTS ####[facility] [address] [place], [address] Bilirubin [Mass/Vol] 0.35 mg/dL Normal 0.00-1.30 [facility] Comment on above: Performed By: #### L 100.0100, L501.2450, L500.4050, L503.6005, BTS ####[facility] [address] [place], [address] BUN/CRE 18.9 RATIO Normal 10-20 [facility] Comment on above: Performed By: #### L 100.0100, L501.2450, L500.4050, L503.6005, BTS ####[facility] [address] [place], [address] Calcium [Mass/Vol] 9.0 mg/dL Normal 7.6-11.0 [facility] Comment on above: Performed By: #### L 100.0100, L501.2450, L500.4050, L503.6005, BTS ####[facility] [address] [place], [address] Chloride [Moles/Vol] 97 mmol/L Low 98-108 [facility] Comment on above: Performed By: #### L 100.0100, L501.2450, L500.4050, L503.6005, BTS ####[facility] [address] [place], [address] CO2 [Moles/Vol] 21.0 mmol/L Normal 21.0-32.0 [facility] Comment on above: Performed By: #### L 100.0100, L501.2450, L500.4050, L503.6005, BTS ####[facility] [address] [place], [address] Creatinine [Mass/Vol] 1.28 mg/dL High 0.70-1.20 [facility] Comment on above: Performed By: #### L 100.0100, L501.2450, L500.4050, L503.6005, BTS ####[facility] [address] [place], [address] ECRCL 29.72 ml/min Low 50-250 [facility] Comment on above: Performed By: #### L 100.0100, L501.2450, L500.4050, L503.6005, BTS ####[facility] [address] [place], [address] GAP 15 Normal 5-15 [facility] Comment on above: Performed By: #### L 100.0100, L501.2450, L500.4050, L503.6005, BTS ####[facility] [address] [place], [address] GFR/1.73 sq M.predicted among non-blacks MDRD (S/P/Bld) [Vol rate/Area] 45 mL/min/{1.73_m2} Low >60 [facility] Comment on above: Result Comment: mL/m in/1.73m2 CKD-EPI Creatinine Equation (2020) Performed By: #### L 100.0100, L501.2450, L500.4050, L503.6005, BTS ####[facility] [address] [place], [address] Globulin (S) [Mass/Vol] 2.4 g/dL Normal 2.2-4.2 [facility] Comment on above: Performed By: #### L 100.0100, L501.2450, L500.4050, L503.6005, BTS ####[facility] [address] [place], [address] Glucose [Mass/Vol] 135 mg/dL High 70-99 [facility] Comment on above: Performed By: #### L 100.0100, L501.2450, L500.4050, L503.6005, BTS ####[facility] [address] [place], [address] Potassium [Moles/Vol] 3.8 mmol/L Normal 3.3-5.1 [facility] Comment on above: Performed By: #### L 100.0100, L501.2450, L500.4050, L503.6005, BTS ####[facility] [address] [place], [address] Sodium [Moles/Vol] 133 mmol/L Normal 133-145 [facility] Comment on above: Performed By: #### L 100.0100, L501.2450, L500.4050, L503.6005, BTS ####[facility] [address] [place], [address] T PROT 6.4 g/dL Normal 5.9-8.4 [facility] Comment on above: Performed By: #### L 100.0100, L501.2450, L500.4050, L503.6005, BTS ####[facility] [address] [place], [address] Urea nitrogen [Mass/Vol] 24 mg/dL High 4-19 [facility] Comment on above: Performed By: #### L 100.0100, L501.2450, L500.4050, L503.6005, BTS ####[facility] [address] [place], [address] Emergency Department Summary on 04-18-2025 Emergency Department Summary Normal [facility] Eosinophil percentageOrdered By: Jeffyaura Willoughby on 04-18-2025 Eosinophils/100 WBC (Bld) 0.5 % 0-5 [facility] Erythrocyte distribution wid th ratioOrdered By: Jeffyaura Blocko on 04-18-2025 Erythrocyte distribution width (RBC) [Ratio] 17.3 % High 11.6-14.6 [facility] Erythrocyte distribution wid th standard deviationOrdered By: Jeffyaura Blocko on 04-18-2025 Erythrocyte distribution width (RBC) [Ratio] 50.4 fl High 35.1-43.9 [facility] Ferritinon 04-18-2025 Ferritin [Mass/Vol] 12 ng/mL Low 22-378 [facility] Comment on above: Performed By: #### L 503.6550, L503.6030 ####[facility] [address] [place], [place], [address] Glomerular filtration rate ( GFR) estimation/1.73 sq m using serum, plasma, or whole bOrdered By: Jeffy Willoughby on 04-18-2025 GFR/1.73 sq M.predicted among non-blacks MDRD (S/P/Bld) [Vol rate/Area] 45 mL/min/{1.73_m2} Low >60 [facility] Comment on above: mL/min/1.73m2 CKD-EP I Creatinine Equation (2020) [facility] deOrdered By: Jeffy Willoughby on 04-18-2025 Glucose [Mass/Vol] 121 mg/dL High 74-106 [facility] Comment on above: MANAGEMENT OF PATIEN T CARE PER NURSING PROTOCOL H AND P Exam - Hospitaliston 04-18-2025 H&P Exam - Hospitalist Normal [facility] Hematocrit Auto (Bld) [Volum e fraction]Ordered By: Jeffy Willoughby on 04-18-2025 Hematocrit (Bld) [Volume fraction] 23.5 % Low 37-47 [facility] Hemoglobin measurementOrdere d By: Jeffyaura Willoughby on 04-18-2025 Hemoglobin (Bld) [Mass/Vol] 7.3 g/dL Low 12.0-15.0 [facility] Immature granulocytes/100 WB C Auto (Bld)Ordered By: Jeffyaura Willoughby on 04-18-2025 Immature granulocytes/100 WBC (Bld) 0.500 % 0.0-0.9 [facility] Comment on above: IG% - Immature Granu locytes (promyelocytes, myelocytes and metamyelocytes) > 1% indicates that a LEFT SHIFT is Present. Iron measurement (mass/mass) Ordered By: Sachin Murillo on 04-18-2025 Iron (Unsp spec) [Mass/Mass] 16 ug/dL Low 50-170 [facility] Iron+Iron Binding Capacityon 04-18-2025 Iron [Mass/Vol] 16 ug/dL Low 50-170 [facility] Comment on above: Performed By: #### L 503.6550, L503.6030 ####[facility] [address] [place], [place], [id number] IRON SATURATION 4.0 Low 13-59 [facility] Comment on above: Performed By: #### L 503.6550, L503.6030 ####[facility] [address] [place], [address] TIBC 372 ug/dL Normal 250-450 [facility] Comment on above: Performed By: #### L 503.6550, L503.6030 ####[facility] [address] [place], [address] UIBC 356 ug/dL Normal 228-428 [facility] Comment on above: Performed By: #### L 503.6550, L503.6030 ####[facility] [address] [place], [address] L499.0042on 04-18-2025 Trop T High Sen 24 ng/L High <=14 [facility] Comment on above: Performed By: #### L 499.0042 ####[facility] [address] [place], [address] L501.4021on 04-18-2025 Trop T High Sen 30 ng/L High <=14 [facility] Comment on above: Performed By: #### L 501.4021 ####[facility] [address] [place], [place], [id number] Laboratory - Chemistry and C hemistry - challengeOrdered By: Jeffy Willoughby on 04-18-2025 AST [Catalytic activity/Vol] 16 U/L <32 [facility] Lactic Acidon 04-18-2025 Lactate [Moles/Vol] 2.6 mmol/L Invalid Interpretation Code 0.0-2.0 [facility] Comment on above: Order Comment: Y Result Comment: Crit ical Result(s) Called LSPARR at: 1945 by:DIOGO??Results read back by same. Performed By: #### L 100.0100, L501.2450, L500.4050, L503.6005, BTS ####[facility] [address] [place], [place], [id number] Lactic acid measurementOrder ed By: Jeffy Willoughby on 04-18-2025 Lactate [Moles/Vol] 2.6 mmol/L High 0.0-2.0 [facility] Comment on above: Critical Result(s) C alled LSPARR at: 1945 by: DIOGO Results read back by same. Lipaseon 04-18-2025 Lipase [Catalytic activity/Vol] 15 U/L Normal 13-75 [facility] Comment on above: Result Comment: Stacy pringle note:LIPASE revised reference range effective 23.New Lipase methodology. Expected to produce lower valuesthan the previous assay method.NEW Reference Range: 13 - 75 U/L Performed By: #### L 100.0100, L501.2450, L500.4050, L503.6005, BTS ####[facility] [address] [place], [address] Lipase measurementOrdered By : Jeffy Willoughby on 04-18-2025 Lipase [Catalytic activity/Vol] 15 U/L 13-75 [facility] Comment on above: Please note:LIPASE r evised reference range effective 23. New Lipase methodology. Expected to produce lower values than the previous assay method. NEW Reference Range: 13 - 75 U/L MCV (mean corpuscular volume ) determinationOrdered By: Jeffy Willoughby on 04-18-2025 MCV (RBC) [Entitic vol] 79.1 fL Low 81-99 W [facility] Mean corpuscular hemoglobin (MCH) determinationOrdered By: Jeffy Willoughby on 04-18-2025 MCH (RBC) [Entitic mass] 24.6 pg Low 27.0-32.0 [facility] Mean corpuscular hemoglobin concentration (MCHC) determinationOrdered By: Jeffy Willoughby on 04-18-2025 MCHC (RBC) [Mass/Vol] 31.1 g/dL Low 32-36 [facility] Mean platelet volume determi nationOrdered By: Jeffy Willoughby on 04-18-2025 Platelet mean volume (Bld) [Entitic vol] 9.6 fL 6.2-12.0 [facility] Monocyte percentageOrdered B y: Jeffy Willoughby on 04-18-2025 Monocytes/100 WBC (Bld) 9.4 % 0-10 W [facility] Neutrophil percentageOrdered By: Jeffy Willoughby on 04-18-2025 Neutrophils/100 WBC (Bld) 79.5 % High 47-70 [facility] No Panel InformationOrdered By: Sachin Murillo on 04-18-2025 356 ug/dL 228-428 [facility] No Panel InformationOrdered By: Jeffyaura Willoughby on 04-18-2025 16 U/L <32 [facility] Nucleated red blood cell per centageOrdered By: Jeffy Willoughby on 04-18-2025 Nucleated RBC/100 WBC (Bld) [Ratio] 0.2 % 0-5 [facility] Platelet countOrdered By: Barrett Willoughby on 04-18-2025 Platelets (Bld) [#/Vol] 195 10*3/uL 150-450 [facility] Potassium measurement (mass/ volume)Ordered By: Jeffyaura Willoughby on 04-18-2025 Potassium (Unsp spec) [Mass/Vol] 3.8 mmol/L 3.3-5.1 [facility] RBC Auto (Bld) [#/Vol]Ordere d By: Jeffy Willoughby on 04-18-2025 RBC (Bld) [#/Vol] 2.97 10*6/uL Low 4.2-5.4 [facility] Serum creatinine measurement (mass/volume)Ordered By: Jeffy Willoughby on 04-18-2025 Creatinine [Mass/Vol] 1.28 mg/dL High 0.70-1.20 [facility] Serum globulin measurementOr dered By: Jeffy Willoughby on 04-18-2025 Globulin (S) [Mass/Vol] 2.4 g/dL 2.2-4.2 [facility] Serum glucose measurement (m ass/volume)Ordered By: Jeffy Willoughby on 04-18-2025 Glucose [Mass/Vol] 135 mg/dL High 70-99 [facility] Serum or plasma alanine pizarro otransferase (ALT) measurementOrdered By: Jeffy Willoughby on 04-18-2025 ALT [Catalytic activity/Vol] 8 U/L <35 [facility] Serum or plasma albumin stefania urement (mass/volume)Ordered By: Jeffy Willoughby on 04-18-2025 Albumin [Mass/Vol] 4.1 g/dL 3.4-4.8 [facility] Serum or plasma albumin/glob ulin mass ratioOrdered By: Jeffy Willoughby on 04-18-2025 Albumin/Globulin [Mass ratio] 1.7 {ratio} 0.9-2.4 [facility] Serum or plasma alkaline anthony sphatase measurementOrdered By: Jeffy Willoughby on 04-18-2025 ALP [Catalytic activity/Vol] 88 U/L 35-104 [facility] Serum or plasma calcium stefania urement (mass/volume)Ordered By: Jeffy Willoughby on 04-18-2025 Calcium [Mass/Vol] 9.0 mg/dL 7.6-11.0 [facility] Serum or plasma ferritin felicia surement (mass/volume)Ordered By: Sachin Murillo on 04-18-2025 Ferritin [Mass/Vol] 12 ng/mL Low 22-378 [facility] Serum or plasma iron saturat ion measurement (mass fraction)Ordered By: Sachin Murillo on 04-18-2025 Iron saturation [Mass fraction] 4.0 % Low 13-59 [facility] Serum or plasma urea nitroge n measurement (mass/volume)Ordered By: Jeffy Willoughby on 04-18-2025 Urea nitrogen [Mass/Vol] 24 mg/dL High 4-19 [facility] Sodium levelOrdered By: Jeffy Willoughby on 04-18-2025 Sodium [Moles/Vol] 133 mmol/L 133-145 [facility] Total proteinOrdered By: Jeffy Willoughby on 04-18-2025 Protein [Mass/Vol] 6.4 g/dL 5.9-8.4 [facility] Troponin T.cardiac [Mass/vol ume] in Serum or Plasma by High sensitivity methodOrdered By: Jeffy Willoughby on 04-18-2025 Troponin T.cardiac High sensitivity method [Mass/Vol] 24 ng/L High <14 [facility] Troponin T.cardiac High sensitivity method [Mass/Vol] 24 ng/L High <14 [facility] Troponin T.cardiac High sensitivity method [Mass/Vol] 30 ng/L High <14 [facility] Type AND Screenon 04-18-2025 ABO and Rh group Nom (Bld) Blood group O Rh(D) positive Normal [facility] Comment on above: Order Comment: MAGGI Suárez PREVIOUS SPECIMEN REJECTED DUE TOWRONG DATE OF ON SPECIMEN. 04/18/25 1906V Performed By: #### B TS ####[facility] [address] [place], [address] A1 CELL Not performed Normal [facility] Comment on above: Order Comment: A Result Comment: This specimen has been REJECTED due to Laboratory criteria:MisLabelled-INCORRECT DATE OF OF PATIENT ON FENWALBAND SPECIMEN.ED has been notified of need of recollection.04/18/251900 Performed By: #### L 100.0100, L501.2450, L500.4050, L503.6005, BTS ####[facility] [address] [place], [address] Ab SCREEN GEL Not performed Normal [facility] Comment on above: Order Comment: A Result Comment: This specimen has been REJECTED due to Laboratory criteria:MisLabelled-INCORRECT DATE OF OF PATIENT ON FENWALBAND SPECIMEN.ED has been notified of need of recollection.04/18/251900 Performed By: #### L 100.0100, L501.2450, L500.4050, L503.6005, BTS ####[facility] [address] [place], [address] ABO and Rh group Nom (Bld) Test Not Performed Normal [facility] Comment on above: Order Comment: A Result Comment: This specimen has been REJECTED due to Laboratory criteria:MisLabelled-INCORRECT DATE OF OF PATIENT ON FENWALBAND SPECIMEN.ED has been notified of need of recollection.04/18/251900 Performed By: #### L 100.0100, L501.2450, L500.4050, L503.6005, BTS ####[facility] [address] [place], [address] ANTI A Not performed Normal [facility] Comment on above: Order Comment: A Result Comment: This specimen has been REJECTED due to Laboratory criteria:MisLabelled-INCORRECT DATE OF OF PATIENT ON FENWALBAND SPECIMEN.ED has been notified of need of recollection.04/18/251900 Performed By: #### L 100.0100, L501.2450, L500.4050, L503.6005, BTS ####[facility] [address] [place], [place], [id number] ANTI B Not performed Normal [facility] Comment on above: Order Comment: A Result Comment: This specimen has been REJECTED due to Laboratory criteria:MisLabelled-INCORRECT DATE OF OF PATIENT ON FENWALBAND SPECIMEN.ED has been notified of need of recollection.04/18/251900 Performed By: #### L 100.0100, L501.2450, L500.4050, L503.6005, BTS ####[facility] [address] [place], [address] ANTI D Not performed Normal [facility] Comment on above: Order Comment: A Result Comment: This specimen has been REJECTED due to Laboratory criteria:MisLabelled-INCORRECT DATE OF OF PATIENT ON FENWALBAND SPECIMEN.ED has been notified of need of recollection.04/18/251900 Performed By: #### L 100.0100, L501.2450, L500.4050, L503.6005, BTS ####[facility] [address] [place], [address] B CELLS Not performed Normal [facility] Comment on above: Order Comment: A Result Comment: This specimen has been REJECTED due to Laboratory criteria:MisLabelled-INCORRECT DATE OF OF PATIENT ON FENWALBAND SPECIMEN.ED has been notified of need of recollection.04/18/251900 Performed By: #### L 100.0100, L501.2450, L500.4050, L503.6005, BTS ####[facility] [address] [place], [place], [id number] White blood cell (WBC) count Ordered By: Jeffy Willoughby on 04-18-2025 WBC (Bld) [#/Vol] 8.7 10*3/uL 4.4-11.0 [facility] Acute Abdomen Inc Cheston Acute Abdomen Inc Chest Normal W [facility] Emergency Department Summary on 04-17-2025 Emergency Department Summary Normal [facility] Brain/Head without Contrasto n 04-11-2025 Brain/Head without Contrast Normal [facility] Emergency Department Summary on 04-11-2025 Emergency Department Summary Normal [facility] Sinus/Facial Boneon 04-11-20 Sinus/Facial Bone Normal [facility] Spine Cervical without Contr ason 04-11-2025 Spine Cervical without Contras Normal [facility] 37on 04-08-2025 37 Please call [place] [phone] to schedule the MRI brain before 05/03/25 - this is when the authorization for the MRI expires Normal [facility] Office Visiton 04-08-2025 Follow-up visit [id number] Estephania Yo 1955 F Date Provider Department Center 04/08/2025 [id number] LYNN [facility] KAIL[facility] None Family History Family Status - Relation Status Age at Mother Notes: brain tumor Father Notes: Hard[place] of arteries Level of Service:77728 NE OFFICE/OUTPATIENT ESTABLISHED LOW MDM 20 MIN Reason for Visit and Comments: Follow-up [030427] Multiple Sclerosis [162] - Normal [facility] Progress Noteon 04-08-2025 Progress Note Visit type: Establijanett friedman Patient Reason for Visit: Follow-up and Multiple Sclerosis (/) Assessment and Plan 1. Multiple sclerosis (HCC) 2. Dysphasia Subjective HPI: Patient phoned in 3 days ago stating MS flare - affecting speech, swallowing, and VSOS. Went to [place] ED about 1 week ago; according to [...] typical MS symptoms Received CT scan at [place] that she states was normal REVIEW- MS- [...] TSH VITAMIN B12: No results found for: [id number] No results found for: PHENYTOIN, PHENOBARB, VALPROATE, CBMZ No components found for: TOPIRA @RESULTINGLABINFO@ No results found for: LEVETIRACETA, FERRITIN, CRP, DENNIS, ANCA No results found for: CHRISTIANO, IMMUNOGLOBUL, OLIGOBANDS No results found for: [id number], HEPCAB No results found for: CRP, ANATITER, ANCA FERRITIN: No results found for: FERRITIN ---- ECG 12 lead SINUS BRADYCARDIA PROBABLE LEFT ATRIAL ABNORMALITY No previous ECG available for comparison Electronically Signed On 04-05-2023 7:42:10 EDT by Juvenal Benton @[email or web address]@ IMPRESSION and PLAN: Problem List Items Ad (more content not included)... Normal [facility] 36on 04-06-2025 36 Patient has been scheduled [facility] 36 I have a 200pm openi ng today or see what I or Dr. Main has open this week. Thank you. Normal [facility] 36on 04-05-2025 36 S: patient calling C AC d/t MS flare up B: Symptoms started 3 weeks ago A: states MS is flaring up. Issues with speech, trouble swallowing, headache. Seen in er a couple days ago at [facility]. States is having trouble walking is [...] be seen in office. May go [facility] today. Patient advised to call back with worsening of symptoms, concern or questions. Patient verbalized understanding. Reason for Disposition [1] Loss of speech or garbled speech AND [2] is a chronic symptom (recurrent or ongoing AND present > 4 weeks) Protocols used: Neurologic Ejnaerm-RSBAO-ST Normal [facility] 12 Lead EKGon 04-02-2025 12 Lead EKG Normal [facility] Abdomen/Pelvis W IV Cont ONL Yon 04-02-2025 Abdomen/Pelvis W IV Cont ONLY Normal [facility] Absolute lymphocyte countOrd ered By: Nuno Grider on 04-02-2025 Lymphocytes Auto (Unsp spec) [#/Vol] 0.62 10*3/uL Low 0.83-4.51 [facility] Absolute neutrophil countOrd ered By: Nuno Grider on 04-02-2025 Neutrophils (Bld) [#/Vol] 4.7 10*3/uL 2.0-7.7 [facility] Anion gap in Serum or Plasma Ordered By: Nuno Grider on 04-02-2025 Anion gap [Moles/Vol] 13 mmol/L 04-02 [facility] Automated lymphocyte count a s percentage of total leukocytesOrdered By: Nuno Gonzalezjeevan on 04-02-2025 Lymphocytes/100 WBC Auto (Unsp spec) 10.5 % Low 19-41 [facility] BUN/creatinine ratioOrdered By: Nuno Costasunny on 04-02-2025 Urea nitrogen/Creatinine [Mass ratio] 22.3 mg/mg High 10-20 [facility] Basophil percentageOrdered B y: Nuno Julissasunny on 04-02-2025 Basophils/100 WBC (Bld) 0.5 % 0-1 W [facility] Bilirubin, totalOrdered By: Nuno Julissasunny on 04-02-2025 Bilirubin [Mass/Vol] 0.22 mg/dL 0.00-1.30 [facility] CBC W/Diff, Automatedon 03-19 Absolute Lymph 0.62 X10 3/uL Low 0.83-4.51 [facility] Comment on above: Performed By: #### L 500.4050, L501.2450, L100.0100 ####[facility] [address] [place], [address] Absolute Neut 4.7 X10 3/uL Normal 2.0-7.7 [facility] Comment on above: Performed By: #### L 500.4050, L501.2450, L100.0100 ####[facility] [address] [place], [address] Basophils/100 WBC (Bld) 0.5 % Normal 0-1 W [facility] Comment on above: Performed By: #### L 500.4050, L501.2450, L100.0100 ####[facility] [address] [place], [address] Eosinophils/100 WBC (Bld) 1.5 % Normal 0-5 [facility] Comment on above: Performed By: #### L 500.4050, L501.2450, L100.0100 ####[facility] [address] [place], [address] Erythrocyte distribution width (RBC) [Ratio] 16.5 % High 11.6-14.6 [facility] Comment on above: Performed By: #### L 500.4050, L501.2450, L100.0100 ####[facility] [address] [place], [address] Hematocrit (Bld) [Volume fraction] 28.2 % Low 37-47 [facility] Comment on above: Performed By: #### L 500.4050, L501.2450, L100.0100 ####[facility] [address] [place], [address] Hemoglobin (Bld) [Mass/Vol] 8.8 g/dL Low 12.0-15.0 [facility] Comment on above: Performed By: #### L 500.4050, L501.2450, L100.0100 ####[facility] [address] [place], [address] IG% 0.500 Normal 0.0-0.9 [facility] Comment on above: Result Comment: IG% - Immature Granulocytes (promyelocytes, myelocytes andmetamyelocytes) > 1% indicates that a LEFT SHIFT is Present. Performed By: #### L 500.4050, L501.2450, L100.0100 ####[facility] [address] [place], [address] Lymphocytes/100 WBC (Bld) 10.5 % Low 19-41 [facility] Comment on above: Performed By: #### L 500.4050, L501.2450, L100.0100 ####[facility] [address] [place], [address] MCH (RBC) [Entitic mass] 25.8 pg Low 27.0-32.0 [facility] Comment on above: Performed By: #### L 500.4050, L501.2450, L100.0100 ####[facility] [address] [place], [address] MCHC (RBC) [Mass/Vol] 31.2 g/dL Low 32-36 [facility] Comment on above: Performed By: #### L 500.4050, L501.2450, L100.0100 ####[facility] [address] [place], [address] MCV (RBC) [Entitic vol] 82.7 fL Normal 81-99 W [facility] Comment on above: Performed By: #### L 500.4050, L501.2450, L100.0100 ####[facility] [address] [place], [address] Monocytes/100 WBC (Bld) 6.6 % Normal 0-10 [facility] Comment on above: Performed By: #### L 500.4050, L501.2450, L100.0100 ####[facility] [address] [place], [address] Neutrophils/100 WBC (Bld) 80.4 % High 47-70 [facility] Comment on above: Performed By: #### L 500.4050, L501.2450, L100.0100 ####[facility] [address] [place], [address] Nucleated RBC (Bld) [#/Vol] 0 10*3/uL Normal 0-5 [facility] Comment on above: Performed By: #### L 500.4050, L501.2450, L100.0100 ####[facility] [address] [place], [address] Platelet mean volume (Bld) [Entitic vol] 9.7 fL Normal 6.2-12.0 [facility] Comment on above: Performed By: #### L 500.4050, L501.2450, L100.0100 ####[facility] [address] [place], [address] Platelets (Bld) [#/Vol] 154 10*3/uL Normal 150-450 [facility] Comment on above: Performed By: #### L 500.4050, L501.2450, L100.0100 ####[facility] [address] [place], [address] RBC (Bld) [#/Vol] 3.41 10*6/uL Low 4.2-5.4 [facility] Comment on above: Performed By: #### L 500.4050, L501.2450, L100.0100 ####[facility] [address] [place], [address] RDW SD 49.7 fl High 35.1-43.9 [facility] Comment on above: Performed By: #### L 500.4050, L501.2450, L100.0100 ####[facility] [address] [place], [address] WBC (Bld) [#/Vol] 5.9 10*3/uL Normal 4.4-11.0 [facility] Comment on above: Performed By: #### L 500.4050, L501.2450, L100.0100 ####[facility] [address] [place], [address] Carbon dioxide, total [Moles /volume] in Central venous bloodOrdered By: Nuno Grider on 04-02-2025 CO2 [Moles/Vol] 23.7 mmol/L 21.0-32.0 [facility] Chloride assayOrdered By: Jorge Grider on 04-02-2025 Chloride [Moles/Vol] 102 mmol/L 98-108 [facility] Comprehensive Metabolic Prof ilon 04-02-2025 Albumin [Mass/Vol] 4.2 g/dL Normal 3.4-4.8 [facility] Comment on above: Performed By: #### L 500.4050, L501.2450, L100.0100 ####[facility] [address] [place], [address] Albumin/Globulin [Mass ratio] 1.7 {ratio} Normal 0.9-2.4 [facility] Comment on above: Performed By: #### L 500.4050, L501.2450, L100.0100 ####[facility] [address] [place], [address] ALK PHOS 87 U/L Normal 35-104 [facility] Comment on above: Performed By: #### L 500.4050, L501.2450, L100.0100 ####[facility] [address] [place], [address] ALT [Catalytic activity/Vol] 14 U/L Normal <=34 [facility] Comment on above: Performed By: #### L 500.4050, L501.2450, L100.0100 ####[facility] [address] [place], [address] AST [Catalytic activity/Vol] 16 U/L Normal <=31 [facility] Comment on above: Performed By: #### L 500.4050, L501.2450, L100.0100 ####[facility] [address] [place], [address] Bilirubin [Mass/Vol] 0.22 mg/dL Normal 0.00-1.30 [facility] Comment on above: Performed By: #### L 500.4050, L501.2450, L100.0100 ####[facility] [address] [place], [address] BUN/CRE 22.3 RATIO High 10-20 [facility] Comment on above: Performed By: #### L 500.4050, L501.2450, L100.0100 ####[facility] [address] [place], [address] Calcium [Mass/Vol] 9.6 mg/dL Normal 7.6-11.0 [facility] Comment on above: Performed By: #### L 500.4050, L501.2450, L100.0100 ####[facility] [address] [place], [address] Chloride [Moles/Vol] 102 mmol/L Normal 98-108 [facility] Comment on above: Performed By: #### L 500.4050, L501.2450, L100.0100 ####[facility] [address] [place], [address] CO2 [Moles/Vol] 23.7 mmol/L Normal 21.0-32.0 [facility] Comment on above: Performed By: #### L 500.4050, L501.2450, L100.0100 ####[facility] [address] [place], [address] Creatinine [Mass/Vol] 1.23 mg/dL High 0.70-1.20 [facility] Comment on above: Performed By: #### L 500.4050, L501.2450, L100.0100 ####[facility] [address] [place], [address] ECRCL 34.53 ml/min Low 50-250 [facility] Comment on above: Performed By: #### L 500.4050, L501.2450, L100.0100 ####[facility] [address] [place], [address] GAP 13 Normal 5-15 [facility] Comment on above: Performed By: #### L 500.4050, L501.2450, L100.0100 ####[facility] [address] [place], [address] GFR/1.73 sq M.predicted among non-blacks MDRD (S/P/Bld) [Vol rate/Area] 47 mL/min/{1.73_m2} Low >60 [facility] Comment on above: Result Comment: mL/m in/1.73m2 CKD-EPI Creatinine Equation (2020) Performed By: #### L 500.4050, L501.2450, L100.0100 ####[facility] [address] [place], [address] Globulin (S) [Mass/Vol] 2.5 g/dL Normal 2.2-4.2 [facility] Comment on above: Performed By: #### L 500.4050, L501.2450, L100.0100 ####[facility] [address] [place], [address] Glucose [Mass/Vol] 129 mg/dL High 70-99 [facility] Comment on above: Performed By: #### L 500.4050, L501.2450, L100.0100 ####[facility] [address] [place], [address] Potassium [Moles/Vol] 4.0 mmol/L Normal 3.3-5.1 [facility] Comment on above: Performed By: #### L 500.4050, L501.2450, L100.0100 ####[facility] [address] [place], [address] Sodium [Moles/Vol] 138 mmol/L Normal 133-145 [facility] Comment on above: Performed By: #### L 500.4050, L501.2450, L100.0100 ####[facility] [address] [place], [address] T PROT 6.7 g/dL Normal 5.9-8.4 [facility] Comment on above: Performed By: #### L 500.4050, L501.2450, L100.0100 ####[facility] [address] [place], [place], [address] Urea nitrogen [Mass/Vol] 27 mg/dL High 4-19 [facility] Comment on above: Performed By: #### L 500.4050, L501.2450, L100.0100 ####[facility] [address] [place], [place], [id number] Emergency Department Summary on 04-02-2025 Emergency Department Summary Normal [facility] Eosinophil percentageOrdered By: Nuno Grider on 04-02-2025 Eosinophils/100 WBC (Bld) 1.5 % 0-5 [facility] Erythrocyte distribution wid th ratioOrdered By: Nuno Grider on 04-02-2025 Erythrocyte distribution width (RBC) [Ratio] 16.5 % High 11.6-14.6 [facility] Erythrocyte distribution wid th standard deviationOrdered By: Nuno Grider on 04-02-2025 Erythrocyte distribution width (RBC) [Ratio] 49.7 fl High 35.1-43.9 [facility] Glomerular filtration rate ( GFR) estimation/1.73 sq m using serum, plasma, or whole bOrdered By: Nuno Grider on 04-02-2025 GFR/1.73 sq M.predicted among non-blacks MDRD (S/P/Bld) [Vol rate/Area] 47 mL/min/{1.73_m2} Low >60 [facility] Comment on above: mL/min/1.73m2 CKD-EP I Creatinine Equation (2020) Hematocrit Auto (Bld) [Volum e fraction]Ordered By: Nuno Grider on 04-02-2025 Hematocrit (Bld) [Volume fraction] 28.2 % Low 37-47 [facility] Hemoglobin measurementOrdere d By: Nuno Grider on 04-02-2025 Hemoglobin (Bld) [Mass/Vol] 8.8 g/dL Low 12.0-15.0 [facility] Immature granulocytes/100 WB C Auto (Bld)Ordered By: Nuno Grider on 04-02-2025 Immature granulocytes/100 WBC (Bld) 0.500 % 0.0-0.9 [facility] Comment on above: IG% - Immature Granu locytes (promyelocytes, myelocytes and metamyelocytes) > 1% indicates that a LEFT SHIFT is Present. Laboratory - Chemistry and C hemistry - challengeOrdered By: Nuno Grider on 04-02-2025 AST [Catalytic activity/Vol] 16 U/L <32 [facility] Lipaseon 04-02-2025 Lipase [Catalytic activity/Vol] 23 U/L Normal 13-75 [facility] Comment on above: Result Comment: Stacy pringle note:LIPASE revised reference range effective 23.New Lipase methodology. Expected to produce lower valuesthan the previous assay method.NEW Reference Range: 13 - 75 U/L Performed By: #### L 500.4050, L501.2450, L100.0100 ####[facility] [address] [place], [address] Lipase measurementOrdered By : Nuno Grider on 04-02-2025 Lipase [Catalytic activity/Vol] 23 U/L 13-75 [facility] Comment on above: Please note:LIPASE r evised reference range effective 23. New Lipase methodology. Expected to produce lower values than the previous assay method. NEW Reference Range: 13 - 75 U/L MCV (mean corpuscular volume ) determinationOrdered By: Nuno Grider on 04-02-2025 MCV (RBC) [Entitic vol] 82.7 fL 81-99 W [facility] Mean corpuscular hemoglobin (MCH) determinationOrdered By: Nuno Grider on 04-02-2025 MCH (RBC) [Entitic mass] 25.8 pg Low 27.0-32.0 [facility] Mean corpuscular hemoglobin concentration (MCHC) determinationOrdered By: Nuno Grider on 04-02-2025 MCHC (RBC) [Mass/Vol] 31.2 g/dL Low 32-36 [facility] Mean platelet volume determi nationOrdered By: Nuno Grider on 04-02-2025 Platelet mean volume (Bld) [Entitic vol] 9.7 fL 6.2-12.0 [facility] Monocyte percentageOrdered B y: Nuno Grider on 04-02-2025 Monocytes/100 WBC (Bld) 6.6 % 0-10 W [facility] Neutrophil percentageOrdered By: Nuno Grider on 04-02-2025 Neutrophils/100 WBC (Bld) 80.4 % High 47-70 [facility] No Panel InformationOrdered By: Nuno Grider on 04-02-2025 16 U/L <32 [facility] Nucleated red blood cell per centageOrdered By: Nuno Grider on 04-02-2025 Nucleated RBC/100 WBC (Bld) [Ratio] 0 % 0-5 [facility] Platelet countOrdered By: Jorge Grider on 04-02-2025 Platelets (Bld) [#/Vol] 154 10*3/uL 150-450 [facility] Potassium measurement (mass/ volume)Ordered By: Nuno Grider on 04-02-2025 Potassium (Unsp spec) [Mass/Vol] 4.0 mmol/L 3.3-5.1 [facility] RBC Auto (Bld) [#/Vol]Ordere d By: Nuno Grider on 04-02-2025 RBC (Bld) [#/Vol] 3.41 10*6/uL Low 4.2-5.4 [facility] Serum creatinine measurement (mass/volume)Ordered By: Nuno Grider on 04-02-2025 Creatinine [Mass/Vol] 1.23 mg/dL High 0.70-1.20 [facility] Serum globulin measurementOr dered By: Nuno Grider on 04-02-2025 Globulin (S) [Mass/Vol] 2.5 g/dL 2.2-4.2 W [facility] Serum glucose measurement (m ass/volume)Ordered By: Nuno Grider on 04-02-2025 Glucose [Mass/Vol] 129 mg/dL High 70-99 [facility] Serum or plasma alanine pizarro otransferase (ALT) measurementOrdered By: Nuno Grider on 04-02-2025 ALT [Catalytic activity/Vol] 14 U/L <35 [facility] Serum or plasma albumin stefania urement (mass/volume)Ordered By: Nuno Grider on 04-02-2025 Albumin [Mass/Vol] 4.2 g/dL 3.4-4.8 [facility] Serum or plasma albumin/glob ulin mass ratioOrdered By: Nuno Grider on 04-02-2025 Albumin/Globulin [Mass ratio] 1.7 {ratio} 0.9-2.4 [facility] Serum or plasma alkaline anthony sphatase measurementOrdered By: Nuno Grider on 04-02-2025 ALP [Catalytic activity/Vol] 87 U/L 35-104 [facility] Serum or plasma calcium stefania urement (mass/volume)Ordered By: Nuno Grider on 04-02-2025 Calcium [Mass/Vol] 9.6 mg/dL 7.6-11.0 [facility] Serum or plasma urea nitroge n measurement (mass/volume)Ordered By: Nuno Grider on 04-02-2025 Urea nitrogen [Mass/Vol] 27 mg/dL High 4-19 [facility] Sodium levelOrdered By: Nuno Grider on 04-02-2025 Sodium [Moles/Vol] 138 mmol/L 133-145 [facility] Total proteinOrdered By: Clari Grider on 04-02-2025 Protein [Mass/Vol] 6.7 g/dL 5.9-8.4 [facility] Urinalysis, Completeon 04-02 BACTERIA Normal None Seen [facility] Comment on above: Order Comment: THEODORE SMITHOR TO SPECIFY Result Comment: @PT DEPARTED ER, OK TO CANCEL BY MANOLOTTSENAIT Performed By: #### L 400.0001 ####[facility] [address] [place], [place], [id number] BILIRUBIN URINE Normal Negative [facility] Comment on above: Order Comment: THEODORE CTOR TO SPECIFY Result Comment: @PT DEPARTED ER, OK TO CANCEL BY CHRISTIANAOSTETTLER Performed By: #### L 400.0001 ####[facility] [address] [place], [place], [id number] Clarity (U) Normal Clear [facility] Comment on above: Order Comment: THEODORE CTOR TO SPECIFY Result Comment: @PT DEPARTED ER, OK TO CANCEL BY CHRISTIANAOSTETTLER Performed By: #### L 400.0001 ####[facility] [address] [place], [address] Color (U) Normal Yellow [facility] Comment on above: Order Comment: COLLE CTOR TO SPECIFY Result Comment: @PT DEPARTED ER, OK TO CANCEL BY MHOSTETTLER Performed By: #### L 400.0001 ####[facility] [address] [place], [address] EPI,SQUAMOUS Normal 5-10 [facility] Comment on above: Order Comment: COLLE CTOR TO SPECIFY Result Comment: @PT DEPARTED ER, OK TO CANCEL BY MHOSTETTLER Performed By: #### L 400.0001 ####[facility] [address] [place], [address] GLUCOSE, UR Normal Normal [facility] Comment on above: Order Comment: COLLE CTOR TO SPECIFY Result Comment: @PT DEPARTED ER, OK TO CANCEL BY MHOSTETTLER Performed By: #### L 400.0001 ####[facility] [address] [place], [address] KETONE UR Normal Negative [facility] Comment on above: Order Comment: COLLE CTOR TO SPECIFY Result Comment: @PT DEPARTED ER, OK TO CANCEL BY MHOSTETTLER Performed By: #### L 400.0001 ####[facility] [address] [place], [address] LEUK ESTERASE Normal Negative [facility] Comment on above: Order Comment: COLLE CTOR TO SPECIFY Result Comment: @PT DEPARTED ER, OK TO CANCEL BY MHOSTETTLER Performed By: #### L 400.0001 ####[facility] [address] [place], [address] Mucus Ql (Urine sed) Normal [facility] Comment on above: Order Comment: COLLE CTOR TO SPECIFY Result Comment: @PT DEPARTED ER, OK TO CANCEL BY MHOSTETTLER Performed By: #### L 400.0001 ####[facility] [address] [place], [address] Nitrite Ql (U) Normal Negative [facility] Comment on above: Order Comment: THEODORE CTOR TO SPECIFY Result Comment: @PT DEPARTED ER, OK TO CANCEL BY MHOSTETTLER Performed By: #### L 400.0001 ####[facility] [address] [place], [address] OCCULT BLOOD-UR Normal Negative [facility] Comment on above: Order Comment: THEODORE CTOR TO SPECIFY Result Comment: @PT DEPARTED ER, OK TO CANCEL BY MHOSTETTLER Performed By: #### L 400.0001 ####[facility] [address] [place], [address] pH UR Normal 5.0 - 8.0 [facility] Comment on above: Order Comment: THEODORE CTOR TO SPECIFY Result Comment: @PT DEPARTED ER, OK TO CANCEL BY MHOSTETTLER Performed By: #### L 400.0001 ####[facility] [address] [place], [address] PROT DIPSTX Normal Negative [facility] Comment on above: Order Comment: THEODORE CTOR TO SPECIFY Result Comment: @PT DEPARTED ER, OK TO CANCEL BY MHOSTETTLER Performed By: #### L 400.0001 ####[facility] [address] [place], [address] RBC Normal 0-5 [facility] Comment on above: Order Comment: THEODORE CTOR TO SPECIFY Result Comment: @PT DEPARTED ER, OK TO CANCEL BY MHOSTETTLER Performed By: #### L 400.0001 ####[facility] [address] [place], [address] SP.GR. DIPSTX Normal 1.002-1.03 0 [facility] Comment on above: Order Comment: THEODORE CTOR TO SPECIFY Result Comment: @PT DEPARTED ER, OK TO CANCEL BY MHOSTETTLER Performed By: #### L 400.0001 ####[facility] [address] [place], [place], [id number] UR Preservative Normal [facility] Comment on above: Order Comment: COLLE CTOR TO SPECIFY Result Comment: @PT DEPARTED ER, OK TO CANCEL BY MHOSTETTLER Performed By: #### L 400.0001 ####[facility] [address] [place], [place], [address] UROBILI Normal Normal [facility] Comment on above: Order Comment: COLLE CTOR TO SPECIFY Result Comment: @PT DEPARTED ER, OK TO CANCEL BY MHOSTETTLER Performed By: #### L 400.0001 ####[facility] [address] [place], [address] WBC Normal 0-5 [facility] Comment on above: Order Comment: COLLE CTOR TO SPECIFY Result Comment: @PT DEPARTED ER, OK TO CANCEL BY MHOSTETTLER Performed By: #### L 400.0001 ####[facility] [address] [place], [place], [id number] White blood cell (WBC) count Ordered By: Nuno Grider on 04-02-2025 WBC (Bld) [#/Vol] 5.9 10*3/uL 4.4-11.0 [facility] Echo Transesophageal (GREGORIO)on 03-19-2025 Echo Transesophageal (GREGORIO) Normal [facility] 36on 03-09-2025 36 Order re faxed to [phone] [facility]. [facility] 36 Name of caller: Brice aragon Contact phone number: [phone] Relationship to Patient: [facility] Provider: AURORA Lynn Practice: [facility] Neurology Nena Chief Complaint/Reason for Call: Kody called in requesting patient's MRI order be faxed over to them at fax # [phone]. Please be advised Best time of day [...] pt stated this will be done at [facility] Office Visiton 03-04-2025 Follow-up visit [id number] Estephania Yo 1955 F Date Provider Department Center 03/04/2025 [id number] OLVERA [facility] KAILA None Family History Family Status - Relation Status Age at Mother Notes: brain tumor Father Notes: Hard[place] of arteries Level of Service:16189 NE OFFICE/OUTPATIENT ESTABLISHED LOW MDM 20 MIN Reason for Visit and Comments: Follow-up [740809] Multiple Sclerosis [162] [facility] Progress Noteon 03-04-2025 Progress Note Visit type: Establijanett friedman Patient [...] daily., Disp: 9 (more content not included)... [address] 03-02-2025 36 Refused as it has be en over a year since her last visit. Will refill at her upcoming appt. [place] [address] Last ov- 12/14/23 Next ov- 03/04/25 [place] [address]on 02-25-2025 36 patient has been not ified of providers message. Appointment has been scheduled [place] [address] Patient's last offic e visit was over a year ago; she needs a follow up before I can order more refills. Thank you. [place] [address]on 02-24-2025 36 Forwarding to [facility] er for review and advice. Called pharmacy spoke with light technician who stated patient picked up refill on January 18. [place] [address] Medication name: staci lofen (Lioresal) 20 MG [...] to picking up the medication: Yes Normal [facility] Cardiology Visit Reporton Cardiology Visit Report Normal W [facility] Thoracic Spine 2 Viewson Thoracic Spine 2 Views Normal [facility] Discharge Instructionon 12-21 Discharge Instruction Normal [facility] Activated partial thrombopla stin time (aPTT) in platelet poor plasma by coagulation aOrdered By: Sommer Resendiz on 01-12-2025 aPTT Coag (PPP) [Time] 76.6 s High 24.1-36.2 [facility] Partial Thromboplast Timeon 01-12-2025 aPTT Coag (Bld) [Time] 76.6 s High 24.1-36.2 [facility] Comment on above: Performed By: #### L 300.4310 ####[facility] [address] [place], [place], [id number] aPTT Coag (Bld) [Time] 60.2 s High 24.1-36.2 [facility] Comment on above: Order Comment: Comme nts: time sensitive hep gtt Performed By: #### L 300.4310 ####[facility] [address] [place], [place], [id number] Absolute lymphocyte countOrd ered By: Sommer Resendiz on 01-11-2025 Lymphocytes Auto (Unsp spec) [#/Vol] 1.07 10*3/uL 0.83-4.51 [facility] Absolute neutrophil countOrd ered By: Sommer Martín on 01-11-2025 Neutrophils (Bld) [#/Vol] 3.6 10*3/uL 2.0-7.7 [facility] Albumin to globulin ratioOrd ered By: Sommer Resendiz on 01-11-2025 Albumin/Globulin [Mass ratio] 0.8 {ratio} Low 0.9-2.4 [facility] Automated lymphocyte count a s percentage of total leukocytesOrdered By: Sommer Resendiz on 01-11-2025 Lymphocytes/100 WBC Auto (Unsp spec) 20.5 % [facility] Basophil percentageOrdered B y: White on 01-11-2025 Basophils/100 WBC (Bld) 0.4 % 0-1 W [facility] Bilirubin, totalOrdered By: White on 01-11-2025 Bilirubin [Mass/Vol] 0.30 mg/dL 0.20-1.00 [facility] Comment on above: For patients on eltr ombopag therapy, use of Dimension [place] TBIL is not recommended. Blood urea nitrogen (BUN)/cr eatinine ratioOrdered By: White on 01-11-2025 Urea nitrogen/Creatinine [Mass ratio] 20.8 mg/mg High 10 [facility] CBC W/Diff, Automatedon 12-21 Absolute Lymph 1.07 X10 3/uL Normal 0.83-4.51 [facility] Comment on above: Performed By: #### L 501.4020, L500.4050, L100.0100 ####[facility] [address] [place], [address] Absolute Neut 3.6 X10 3/uL Normal 2.0-7.7 [facility] Comment on above: Performed By: #### L 501.4020, L500.4050, L100.0100 ####[facility] [address] [place], [address] Basophils/100 WBC (Bld) 0.4 % Normal 0-1 W [facility] Comment on above: Performed By: #### L 501.4020, L500.4050, L100.0100 ####[facility] [address] [place], [address] Eosinophils/100 WBC (Bld) 1.0 % Normal 0-5 [facility] Comment on above: Performed By: #### L 501.4020, L500.4050, L100.0100 ####[facility] [address] [place], [address] Erythrocyte distribution width (RBC) [Ratio] 14.9 % High 11.6-14.6 [facility] Comment on above: Performed By: #### L 501.4020, L500.4050, L100.0100 ####[facility] [address] [place], [address] Hematocrit (Bld) [Volume fraction] 39.1 % Normal 37-47 [facility] Comment on above: Performed By: #### L 501.4020, L500.4050, L100.0100 ####[facility] [address] [place], [address] Hemoglobin (Bld) [Mass/Vol] 12.5 g/dL Normal 12.0-15.0 [facility] Comment on above: Performed By: #### L 501.4020, L500.4050, L100.0100 ####[facility] [address] [place], [address] IG% 0.400 Normal 0.0-0.9 [facility] Comment on above: Result Comment: IG% - Immature Granulocytes (promyelocytes, myelocytes andmetamyelocytes) > 1% indicates that a LEFT SHIFT is Present. Performed By: #### L 501.4020, L500.4050, L100.0100 ####[facility] [address] [place], [address] Lymphocytes/100 WBC (Bld) 20.5 % Normal 19-41 [facility] Comment on above: Performed By: #### L 501.4020, L500.4050, L100.0100 ####[facility] [address] [place], [address] MCH (RBC) [Entitic mass] 26.4 pg Low 27.0-32.0 [facility] Comment on above: Performed By: #### L 501.4020, L500.4050, L100.0100 ####[facility] [address] [place], [address] MCHC (RBC) [Mass/Vol] 32.0 g/dL Normal 32-36 [facility] Comment on above: Performed By: #### L 501.4020, L500.4050, L100.0100 ####[facility] [address] [place], [address] MCV (RBC) [Entitic vol] 82.7 fL Normal 81-99 [facility] Comment on above: Performed By: #### L 501.4020, L500.4050, L100.0100 ####[facility] [address] [place], [address] Monocytes/100 WBC (Bld) 9.4 % Normal 0-10 [facility] Comment on above: Performed By: #### L 501.4020, L500.4050, L100.0100 ####[facility] [address] [place], [address] Neutrophils/100 WBC (Bld) 68.3 % Normal 47-70 [facility] Comment on above: Performed By: #### L 501.4020, L500.4050, L100.0100 ####[facility] [address] [place], [address] Nucleated RBC (Bld) [#/Vol] 0 10*3/uL Normal 0-5 [facility] Comment on above: Performed By: #### L 501.4020, L500.4050, L100.0100 ####[facility] [address] [place], [address] Platelet mean volume (Bld) [Entitic vol] 10.4 fL Normal 6.2-12.0 [facility] Comment on above: Performed By: #### L 501.4020, L500.4050, L100.0100 ####[facility] [address] [place], [address] Platelets (Bld) [#/Vol] 158 10*3/uL Normal 150-450 [facility] Comment on above: Performed By: #### L 501.4020, L500.4050, L100.0100 ####[facility] [address] [place], [address] RBC (Bld) [#/Vol] 4.73 10*6/uL Normal 4.2-5.4 [facility] Comment on above: Performed By: #### L 501.4020, L500.4050, L100.0100 ####[facility] [address] [place], [address] RDW SD 45.2 fl High 35.1-43.9 [facility] Comment on above: Performed By: #### L 501.4020, L500.4050, L100.0100 ####[facility] [address] [place], [address] WBC (Bld) [#/Vol] 5.2 10*3/uL Normal 4.4-11.0 [facility] Comment on above: Performed By: #### L 501.4020, L500.4050, L100.0100 ####[facility] [address] [place], [address] Carbon dioxide measurementOr dered By: Sommer Resendiz on 01-11-2025 CO2 [Moles/Vol] 25.0 mmol/L 21.0-32.0 [facility] Chloride measurementOrdered By: Sommer Resendiz on 01-11-2025 Chloride [Moles/Vol] 101 mmol/L 98-107 [facility] Comprehensive Metabolic Prof ilon 01-11-2025 Albumin [Mass/Vol] 3.4 g/dL Normal 3.2-5.0 [facility] Comment on above: Order Comment: Comme nts: SPECIMEN #2'TROP' Serial specimen #1, #2 or #3: 2 Performed By: #### L 501.4020, L500.4050, L100.0100 ####[facility] [address] [place], [address] Albumin/Globulin [Mass ratio] 0.8 {ratio} Low 0.9-2.4 [facility] Comment on above: Order Comment: Comme nts: SPECIMEN #2'TROP' Serial specimen #1, #2 or #3: 2 Performed By: #### L 501.4020, L500.4050, L100.0100 ####[facility] [address] [place], [address] ALK P 182 U/L High 45-117 [facility] Comment on above: Order Comment: Comme nts: SPECIMEN #2'TROP' Serial specimen #1, #2 or #3: 2 Performed By: #### L 501.4020, L500.4050, L100.0100 ####[facility] [address] [place], [address] ALT [Catalytic activity/Vol] 22 U/L Normal 13-56 [facility] Comment on above: Order Comment: Comme nts: SPECIMEN #2'TROP' Serial specimen #1, #2 or #3: 2 Performed By: #### L 501.4020, L500.4050, L100.0100 ####[facility] [address] [place], [address] AST [Catalytic activity/Vol] 27 U/L Normal 15-37 [facility] Comment on above: Order Comment: Comme nts: SPECIMEN #2'TROP' Serial specimen #1, #2 or #3: 2 Performed By: #### L 501.4020, L500.4050, L100.0100 ####[facility] [address] [place], [address] Bilirubin [Mass/Vol] 0.30 mg/dL Normal 0.20-1.00 [facility] Comment on above: Order Comment: Comme nts: SPECIMEN #2'TROP' Serial specimen #1, #2 or #3: 2 Result Comment: For patients on eltrombopag therapy, use of Dimension [place] TBIL is not recommended. Performed By: #### L 501.4020, L500.4050, L100.0100 ####[facility] [address] [place], [address] BUN/CRE 20.8 RATIO High 10-20 [facility] Comment on above: Order Comment: Comme nts: SPECIMEN #2'TROP' Serial specimen #1, #2 or #3: 2 Performed By: #### L 501.4020, L500.4050, L100.0100 ####[facility] [address] [place], [address] CA,Total 9.3 mg/dL Normal 8.5-10.1 [facility] Comment on above: Order Comment: Comme nts: SPECIMEN #2'TROP' Serial specimen #1, #2 or #3: 2 Performed By: #### L 501.4020, L500.4050, L100.0100 ####[facility] [address] [place], [address] Chloride [Moles/Vol] 101 mmol/L Normal 98-107 [facility] Comment on above: Order Comment: Comme nts: SPECIMEN #2'TROP' Serial specimen #1, #2 or #3: 2 Performed By: #### L 501.4020, L500.4050, L100.0100 ####[facility] [address] [place], [address] CO2 [Moles/Vol] 25.0 mmol/L Normal 21.0-32.0 [facility] Comment on above: Order Comment: Comme nts: SPECIMEN #2'TROP' Serial specimen #1, #2 or #3: 2 Performed By: #### L 501.4020, L500.4050, L100.0100 ####[facility] [address] [place], [address] Creatinine [Mass/Vol] 1.06 mg/dL High 0.55-1.02 [facility] Comment on above: Order Comment: Comme nts: SPECIMEN #2'TROP' Serial specimen #1, #2 or #3: 2 Result Comment: The validity of the calculated GFR GFRAA in patients over70 years has not been determined. Clinical correlation isessential. Performed By: #### L 501.4020, L500.4050, L100.0100 ####[facility] [address] [place], [address] ECRCL 39.37 ml/min Normal [facility] Comment on above: Order Comment: Comme nts: SPECIMEN #2'TROP' Serial specimen #1, #2 or #3: 2 Performed By: #### L 501.4020, L500.4050, L100.0100 ####[facility] [address] [place], [address] EST GFR - AA 66 mL/min Normal >60 [facility] Comment on above: Order Comment: Comme nts: SPECIMEN #2'TROP' Serial specimen #1, #2 or #3: 2 Result Comment: Afri can [place] GFR Calc Performed By: #### L 501.4020, L500.4050, L100.0100 ####[facility] [address] [place], [address] GAP 8 Normal 5-15 [facility] Comment on above: Order Comment: Comme nts: SPECIMEN #2'TROP' Serial specimen #1, #2 or #3: 2 Performed By: #### L 501.4020, L500.4050, L100.0100 ####[facility] [address] [place], [address] GFR/1.73 sq M.predicted among non-blacks MDRD (S/P/Bld) [Vol rate/Area] 54 mL/min/{1.73_m2} Low >60 [facility] Comment on above: Order Comment: Comme nts: SPECIMEN #2'TROP' Serial specimen #1, #2 or #3: 2 Result Comment: Non- GFR Calc Performed By: #### L 501.4020, L500.4050, L100.0100 ####[facility] [address] [place], [address] Globulin (S) [Mass/Vol] 4.0 g/dL Normal 2.2-4.2 [facility] Comment on above: Order Comment: Comme nts: SPECIMEN #2'TROP' Serial specimen #1, #2 or #3: 2 Performed By: #### L 501.4020, L500.4050, L100.0100 ####[facility] [address] [place], [address] Glucose [Mass/Vol] 106 mg/dL Normal 74-106 [facility] Comment on above: Order Comment: Comme nts: SPECIMEN #2'TROP' Serial specimen #1, #2 or #3: 2 Result Comment: Fast ing Glucose result from 100 to 125 mg/dLsuggests IMPAIRED HOMEOSTASIS per A.D.A. criteria. Performed By: #### L 501.4020, L500.4050, L100.0100 ####[facility] [address] [place], [address] Potassium [Moles/Vol] 4.2 mmol/L Normal 3.5-5.1 [facility] Comment on above: Order Comment: Comme nts: SPECIMEN #2'TROP' Serial specimen #1, #2 or #3: 2 Performed By: #### L 501.4020, L500.4050, L100.0100 ####[facility] [address] [place], [address] Sodium [Moles/Vol] 135 mmol/L Low 136-145 [facility] Comment on above: Order Comment: Comme nts: SPECIMEN #2'TROP' Serial specimen #1, #2 or #3: 2 Performed By: #### L 501.4020, L500.4050, L100.0100 ####[facility] [address] [place], [place], [id number] T PROT 7.4 g/dL Normal 6.4-8.2 [facility] Comment on above: Order Comment: Comme nts: SPECIMEN #2'TROP' Serial specimen #1, #2 or #3: 2 Performed By: #### L 501.4020, L500.4050, L100.0100 ####[facility] [address] [place], [place], [id number] Urea nitrogen [Mass/Vol] 22 mg/dL High 7-18 [facility] Comment on above: Order Comment: Comme nts: SPECIMEN #2'TROP' Serial specimen #1, #2 or #3: 2 Performed By: #### L 501.4020, L500.4050, L100.0100 ####[facility] [address] [place], [address] Consultation - Cardiologyon 01-11-2025 Consultation - Cardiology Normal [facility] Echo Completeon 01-11-2025 Echo Complete Normal [facility] Eosinophil percentageOrdered By: Sommer White on 01-11-2025 Eosinophils/100 WBC (Bld) 1.0 % 0-5 [facility] Erythrocyte distribution wid th ratioOrdered By: Sommer White on 01-11-2025 Erythrocyte distribution width (RBC) [Ratio] 14.9 % High 11.6-14.6 [facility] Erythrocyte distribution wid th standard deviationOrdered By: White on 01-11-2025 Erythrocyte distribution width (RBC) [Ratio] 45.2 fl High 35.1-43.9 [facility] Glomerular filtration rate ( GFR) estimationOrdered By: Sommer White on 01-11-2025 GFR/1.73 sq M.predicted among non-blacks MDRD (S/P/Bld) [Vol rate/Area] 54 mL/min/{1.73_m2} Low >60 [facility] Comment on above: Non- GFR Calc Glucose measurementOrdered B y: Sommer Resendiz on 01-11-2025 Glucose [Mass/Vol] 106 mg/dL 74-106 [facility] Comment on above: Fasting Glucose resu lt from 100 to 125 mg/dL suggests IMPAIRED HOMEOSTASIS per A.D.A. criteria. Hematocrit Auto (Bld) [Volum e fraction]Ordered By: Sommer Resendiz on 01-11-2025 Hematocrit (Bld) [Volume fraction] 39.1 % 37-47 [facility] Hemoglobin measurementOrdere d By: Sommer Resendiz on 01-11-2025 Hemoglobin (Bld) [Mass/Vol] 12.5 g/dL 12.0-15.0 [facility] Immature granulocytes/100 WB C Auto (Bld)Ordered By: [facility] Martín on 01-11-2025 Immature granulocytes/100 WBC (Bld) 0.400 % 0.0-0.9 [facility] Comment on above: IG% - Immature Granu locytes (promyelocytes, myelocytes and metamyelocytes) > 1% indicates that a LEFT SHIFT is Present. International normalized rat io (INR) calculationOrdered By: Benjy Flores on 01-11-2025 INR Coag (Bld) [Relative time] 1.0 {INR} [facility] L501.4020on 01-11-2025 TROPONIN-I HS 1688 pg/mL Invalid Interpretation Code 3.0-54.0 [facility] Comment on above: Order Comment: Comme nts: SPECIMEN #3'TROP' Serial specimen #1, #2 or #3: 3 Result Comment: Crit ical Result(s) Called at: 10:12:22 01/11/2025 by:Joana Salazar to [facility]. Results read back by same. Please Note: New Test Units and Gender Specific Reference Ranges. For more information see Policy Stat Procedure [place] High Sensitivity Troponin (TNIH) and attachments. Performed By: #### L 501.4020 ####[facility] [address] [place], [address] TROPONIN-I HS 1841 pg/mL Invalid Interpretation Code 3.0-54.0 [facility] Comment on above: Order Comment: Comme nts: SPECIMEN #2'TROP' Serial specimen #1, #2 or #3: 2 Result Comment: Crit ical Result(s) Called at: 06:12:52 01/11/2025 by:Joana Salazar to [place]. Results read back by same. Please Note: New Test Units and Gender Specific Reference Ranges. For more information see Policy Stat Procedure [place] High Sensitivity Troponin (TNIH) and attachments. Performed By: #### L 501.4020, L500.4050, L100.0100 ####[facility] [address] [place], [address] TROPONIN-I HS 1798 pg/mL Invalid Interpretation Code 3.0-54.0 [facility] Comment on above: Order Comment: 'TROP ' Serial specimen #1, #2 or #3: 1 Result Comment: Crit ical Result(s) Called at: 04:22:19 01/11/2025 by:LORENA KENDALL TO EVERT FAY. Results read back by same. Please Note: New Test Units and Gender Specific Reference Ranges. For more information see Policy Stat Procedure [place] High Sensitivity Troponin (TNIH) and attachments. Performed By: #### L 501.4020 ####[facility] [address] [place], [address] Laboratory - Chemistry and C hemistry - challengeOrdered By: Sommer Resendiz on 01-11-2025 AST [Catalytic activity/Vol] 27 U/L 15-37 [facility] M100.019on 01-11-2025 M100.019 Negative Normal [facility] Comment on above: Performed By: #### M 100.019 ####[facility] [address] [place], [address] MCV (mean corpuscular volume ) determinationOrdered By: Sommer Resendiz on 01-11-2025 MCV (RBC) [Entitic vol] 82.7 fL 81-99 W [facility] Magnesiumon 01-11-2025 Magnesium [Mass/Vol] 2.0 mg/dL Normal 1.6-2.6 [facility] Comment on above: Order Comment: Comme nts: may add to ED labs Performed By: #### L 501.5200 ####[facility] [address] [place], [place], [id number] Mean corpuscular hemoglobin (MCH) determinationOrdered By: [facility] Martín on 01-11-2025 MCH (RBC) [Entitic mass] 26.4 pg Low 27.0-32.0 [facility] Mean corpuscular hemoglobin concentration (MCHC) determinationOrdered By: Sommer Martín on 01-11-2025 MCHC (RBC) [Mass/Vol] 32.0 g/dL 32-36 [facility] Mean platelet volume determi nationOrdered By: [facility] White on 01-11-2025 Platelet mean volume (Bld) [Entitic vol] 10.4 fL 6.2-12.0 [facility] Monocyte percentageOrdered B y: [facility] Martín on 01-11-2025 Monocytes/100 WBC (Bld) 9.4 % 0-10 [facility] Neutrophil percentageOrdered By: [facility] White on 01-11-2025 Neutrophils/100 WBC (Bld) 68.3 % 47-70 [facility] No Panel InformationOrdered By: [facility] Martín on 01-11-2025 27 U/L 15-37 [facility] Nucleated red blood cell per centageOrdered By: [facility] Martín on 01-11-2025 Nucleated RBC/100 WBC (Bld) [Ratio] 0 % 0-5 [facility] Partial Thromboplast Timeon 01-11-2025 aPTT Coag (Bld) [Time] 64.4 s High 24.1-36.2 [facility] Comment on above: Order Comment: Comme nts: time sensitive hep gtt Performed By: #### L 300.4310 ####[facility] [address] [place], [place], [id number] aPTT Coag (Bld) [Time] 76.9 s High 24.1-36.2 [facility] Comment on above: Performed By: #### L 300.4310 ####[facility] [address] [place], [address] aPTT Coag (Bld) [Time] 53.2 s High 24.1-36.2 [facility] Comment on above: Order Comment: Comme nts: heparin gtt Performed By: #### L 300.4310 ####[facility] [address] [place], [address] aPTT Coag (Bld) [Time] 28.3 s Normal 24.1-36.2 [facility] Comment on above: Performed By: #### L 300.3900, L300.4310 ####[facility] [address] [place], [address] Platelet countOrdered By: Lissa Resendiz on 01-11-2025 Platelets (Bld) [#/Vol] 158 10*3/uL 150-450 [facility] Potassium measurementOrdered By: Sommer Resendiz on 01-11-2025 Potassium [Moles/Vol] 4.2 mmol/L 3.5-5.1 [facility] Prothrombin Time w/INRon INR Coag (PPP) [Relative time] 1.0 {INR} Normal [facility] Comment on above: Performed By: #### L 300.3900, L300.4310 ####[facility] [address] [place], [address] PT Coag (PPP) [Time] 12.9 s Normal 11.7-14.9 [facility] Comment on above: Performed By: #### L 300.3900, L300.4310 ####[facility] [address] [place], [address] Prothrombin timeOrdered By: Benjy Flores on 01-11-2025 PT Coag (PPP) [Time] 12.9 s 11.7-14.9 [facility] RBC Auto (Bld) [#/Vol]Ordere d By: Sommer Resendiz on 01-11-2025 RBC (Bld) [#/Vol] 4.73 10*6/uL 4.2-5.4 [facility] RESPIRATORY PANEL MOLECULARo n 01-11-2025 RP PANEL Normal [facility] Comment on above: Performed By: #### M 100.638 ####[facility] [address] [place], [address] Yofa-nsf-7Enxfjmy By: Sommer Resendiz on 01-11-2025 SARS-CoV-2 (COVID-19) RNA JAYDON+probe Ql (Unsp spec) [facility] Serum anion gap measurementO rdered By: Sommer Resendiz on 01-11-2025 Anion gap [Moles/Vol] 8 mmol/L 5-15 [facility] Serum globulin measurementOr dered By: Sommer Resendiz on 01-11-2025 Globulin (S) [Mass/Vol] 4.0 g/dL 2.2-4.2 W [facility] Serum or plasma alanine pizarro otransferase (ALT) measurementOrdered By: Sommer Resendiz on 01-11-2025 ALT [Catalytic activity/Vol] 22 U/L 13-56 [facility] Serum or plasma albumin stefania urement (mass/volume)Ordered By: Sommer Resendiz on 01-11-2025 Albumin [Mass/Vol] 3.4 g/dL 3.2-5.0 [facility] Serum or plasma alkaline anthony sphatase measurementOrdered By: Sommer Resendiz on 01-11-2025 ALP [Catalytic activity/Vol] 182 U/L High 45-117 [facility] Serum or plasma calcium stefania urement (mass/volume)Ordered By: Sommer Resendiz on 01-11-2025 Calcium [Mass/Vol] 9.3 mg/dL 8.5-10.1 [facility] Serum or plasma creatinine m easurement (mass/volume)Ordered By: Sommer Resendiz 01-11-2025 Creatinine [Mass/Vol] 1.06 mg/dL High 0.55-1.02 [facility] Comment on above: The validity of the calculated GFR & GFRAA in patients over 70 years has not been determined. Clinical correlation is essential. Serum or plasma urea nitroge n measurement (mass/volume)Ordered By: Sommer Resendiz on 01-11-2025 Urea nitrogen [Mass/Vol] 22 mg/dL High 7-18 [facility] Sodium levelOrdered By: Julianjoe felipe Martín on 01-11-2025 Sodium [Moles/Vol] 135 mmol/L Low 136-145 [facility] Total proteinOrdered By: Julian susan Martín on 01-11-2025 Protein [Mass/Vol] 7.4 g/dL 6.4-8.2 [facility] Troponin IOrdered By: Sommer Martín on 01-11-2025 Troponin I 1688 pg/mL High 3.0-54.0 [facility] Comment on above: Critical Result(s) C alled at: 10:12:22 01/11/2025 by: Joana Salazar to Fatou. Results read back by same. Please Note: New Test Units and Gender Specific Reference Ranges. For more information see Policy Stat Procedure [place] High Sensitivity Troponin (TNIH) and attachments. White blood cell (WBC) count Ordered By: Sommer Resendiz on 01-11-2025 WBC (Bld) [#/Vol] 5.2 10*3/uL 4.4-11.0 [facility] 12 Lead EKGon 01-10-2025 12 Lead EKG Normal [facility] BNP (brain natriuretic pepti de measurement)Ordered By: Benjy Flores on 01-10-2025 Natriuretic peptide B (Bld) [Mass/Vol] 411.9 pg/mL High 0-100 [facility] BNP,B-Type NATRIURETIC PEPTI Hodan 01-10-2025 Natriuretic peptide B (Bld) [Mass/Vol] 411.9 pg/mL High 0-100 [facility] Comment on above: Performed By: #### L 503.6620 ####[facility] [address] [place], [address] Basic Metabolic Profile (BMP )on 01-10-2025 BUN/CRE 20.4 RATIO High 10-20 [facility] Comment on above: Order Comment: 'TROP ' Serial specimen #1, #2 or #3: 1 Performed By: #### L 100.0100, L501.4020, L500.2500 ####[facility] [address] [place], [address] CA,Total 9.5 mg/dL Normal 8.5-10.1 [facility] Comment on above: Order Comment: 'TROP ' Serial specimen #1, #2 or #3: 1 Performed By: #### L 100.0100, L501.4020, L500.2500 ####[facility] [address] [place], [address] Chloride [Moles/Vol] 101 mmol/L Normal 98-107 [facility] Comment on above: Order Comment: 'TROP ' Serial specimen #1, #2 or #3: 1 Performed By: #### L 100.0100, L501.4020, L500.2500 ####[facility] [address] [place], [address] CO2 [Moles/Vol] 22.0 mmol/L Normal 21.0-32.0 [facility] Comment on above: Order Comment: 'TROP ' Serial specimen #1, #2 or #3: 1 Performed By: #### L 100.0100, L501.4020, L500.2500 ####[facility] [address] [place], [address] Creatinine [Mass/Vol] 1.08 mg/dL High 0.55-1.02 [facility] Comment on above: Order Comment: 'TROP ' Serial specimen #1, #2 or #3: 1 Result Comment: The validity of the calculated GFR GFRAA in patients over70 years has not been determined. Clinical correlation isessential. Performed By: #### L 100.0100, L501.4020, L500.2500 ####[facility] [address] [place], [address] ECRCL 40.02 ml/min Normal [facility] Comment on above: Order Comment: 'TROP ' Serial specimen #1, #2 or #3: 1 Performed By: #### L 100.0100, L501.4020, L500.2500 ####[facility] [address] [place], [address] EST GFR - AA 64 mL/min Normal >60 [facility] Comment on above: Order Comment: 'TROP ' Serial specimen #1, #2 or #3: 1 Result Comment: Afri can [place] GFR Calc Performed By: #### L 100.0100, L501.4020, L500.2500 ####[facility] [address] [place], [address] GAP 11 Normal 5-15 [facility] Comment on above: Order Comment: 'TROP ' Serial specimen #1, #2 or #3: 1 Performed By: #### L 100.0100, L501.4020, L500.2500 ####[facility] [address] [place], [address] GFR/1.73 sq M.predicted among non-blacks MDRD (S/P/Bld) [Vol rate/Area] 53 mL/min/{1.73_m2} Low >60 [facility] Comment on above: Order Comment: 'TROP ' Serial specimen #1, #2 or #3: 1 Result Comment: Non- GFR Calc Performed By: #### L 100.0100, L501.4020, L500.2500 ####[facility] [address] [place], [address] Glucose [Mass/Vol] 114 mg/dL High 74-106 [facility] Comment on above: Order Comment: 'TROP ' Serial specimen #1, #2 or #3: 1 Result Comment: Fast ing Glucose result from 100 to 125 mg/dLsuggests IMPAIRED HOMEOSTASIS per A.D.A. criteria. Performed By: #### L 100.0100, L501.4020, L500.2500 ####[facility] [address] [place], [address] Potassium [Moles/Vol] 3.8 mmol/L Normal 3.5-5.1 [facility] Comment on above: Order Comment: 'TROP ' Serial specimen #1, #2 or #3: 1 Performed By: #### L 100.0100, L501.4020, L500.2500 ####[facility] [address] [place], [address] Sodium [Moles/Vol] 134 mmol/L Low 136-145 [facility] Comment on above: Order Comment: 'TROP ' Serial specimen #1, #2 or #3: 1 Performed By: #### L 100.0100, L501.4020, L500.2500 ####[facility] [address] [place], [address] Urea nitrogen [Mass/Vol] 22 mg/dL High 7-18 [facility] Comment on above: Order Comment: 'TROP ' Serial specimen #1, #2 or #3: 1 Performed By: #### L 100.0100, L501.4020, L500.2500 ####[facility] [address] [place], [address] Brain/Head without Contrasto n 01-10-2025 Brain/Head without Contrast Normal [facility] CBC W/Diff, Automatedon - Absolute Lymph 0.72 X10 3/uL Low 0.83-4.51 [facility] Comment on above: Performed By: #### L 100.0100, L501.4020, L500.2500 ####[facility] [address] [place], [address] Absolute Neut 5.9 X10 3/uL Normal 2.0-7.7 [facility] Comment on above: Performed By: #### L 100.0100, L501.4020, L500.2500 ####[facility] [address] [place], [address] Basophils/100 WBC (Bld) 0.4 % Normal 0-1 W [facility] Comment on above: Performed By: #### L 100.0100, L501.4020, L500.2500 ####[facility] [address] [place], [address] Eosinophils/100 WBC (Bld) 1.4 % Normal 0-5 [facility] Comment on above: Performed By: #### L 100.0100, L501.4020, L500.2500 ####[facility] [address] [place], [address] Erythrocyte distribution width (RBC) [Ratio] 14.9 % High 11.6-14.6 [facility] Comment on above: Performed By: #### L 100.0100, L501.4020, L500.2500 ####[facility] [address] [place], [address] Hematocrit (Bld) [Volume fraction] 40.1 % Normal 37-47 [facility] Comment on above: Performed By: #### L 100.0100, L501.4020, L500.2500 ####[facility] [address] [place], [address] Hemoglobin (Bld) [Mass/Vol] 13.1 g/dL Normal 12.0-15.0 [facility] Comment on above: Performed By: #### L 100.0100, L501.4020, L500.2500 ####[facility] [address] [place], [address] IG% 0.400 Normal 0.0-0.9 [facility] Comment on above: Result Comment: IG% - Immature Granulocytes (promyelocytes, myelocytes andmetamyelocytes) > 1% indicates that a LEFT SHIFT is Present. Performed By: #### L 100.0100, L501.4020, L500.2500 ####[facility] [address] [place], [address] Lymphocytes/100 WBC (Bld) 9.8 % Low 19-41 [facility] Comment on above: Performed By: #### L 100.0100, L501.4020, L500.2500 ####[facility] [address] [place], [address] MCH (RBC) [Entitic mass] 26.6 pg Low 27.0-32.0 [facility] Comment on above: Performed By: #### L 100.0100, L501.4020, L500.2500 ####[facility] [address] [place], [address] MCHC (RBC) [Mass/Vol] 32.7 g/dL Normal 32-36 [facility] Comment on above: Performed By: #### L 100.0100, L501.4020, L500.2500 ####[facility] [address] [place], [address] MCV (RBC) [Entitic vol] 81.5 fL Normal 81-99 [facility] Comment on above: Performed By: #### L 100.0100, L501.4020, L500.2500 ####[facility] [address] [place], [address] Monocytes/100 WBC (Bld) 8.0 % Normal 0-10 [facility] Comment on above: Performed By: #### L 100.0100, L501.4020, L500.2500 ####[facility] [address] [place], [address] Neutrophils/100 WBC (Bld) 80.0 % High 47-70 [facility] Comment on above: Performed By: #### L 100.0100, L501.4020, L500.2500 ####[facility] [address] [place], [address] Nucleated RBC (Bld) [#/Vol] 0 10*3/uL Normal 0-5 [facility] Comment on above: Performed By: #### L 100.0100, L501.4020, L500.2500 ####[facility] [address] [place], [address] Platelet mean volume (Bld) [Entitic vol] 9.8 fL Normal 6.2-12.0 [facility] Comment on above: Performed By: #### L 100.0100, L501.4020, L500.2500 ####[facility] [address] [place], [address] Platelets (Bld) [#/Vol] 147 10*3/uL Low 150-450 [facility] Comment on above: Performed By: #### L 100.0100, L501.4020, L500.2500 ####[facility] [address] [place], [address] RBC (Bld) [#/Vol] 4.92 10*6/uL Normal 4.2-5.4 [facility] Comment on above: Performed By: #### L 100.0100, L501.4020, L500.2500 ####[facility] [address] [place], [address] RDW SD 44.3 fl High 35.1-43.9 [facility] Comment on above: Performed By: #### L 100.0100, L501.4020, L500.2500 ####[facility] [address] [place], [address] WBC (Bld) [#/Vol] 7.4 10*3/uL Normal 4.4-11.0 [facility] Comment on above: Performed By: #### L 100.0100, L501.4020, L500.2500 ####[facility] [address] [place], [address] Chest 1 View (Portable)on Chest 1 View (Portable) Normal W [facility] Emergency Department Summary on 01-10-2025 Emergency Department Summary Normal [facility] H AND P Exam - Hospitaliston 01-10-2025 H&P Exam - Hospitalist Normal [facility] L501.4020on 01-10-2025 TROPONIN-I HS 2243 pg/mL Invalid Interpretation Code 3.0-54.0 [facility] Comment on above: Order Comment: 'TROP ' Serial specimen #1, #2 or #3: 1 Result Comment: Crit ical Result(s) Called at: 22:15:33 01/10/2025 by: BERYL to Juventino Rodrigez. Results read back by same. Please Note: New Test Units and Gender Specific Reference Ranges. For more information see Policy Stat Procedure [place] High Sensitivity Troponin (TNIH) and attachments. Performed By: #### L 100.0100, L501.4020, L500.2500 ####[facility] [address] [place], [address] Magnesium measurementOrdered By: Sommer Resendiz on 01-10-2025 Magnesium [Mass/Vol] 2.0 mg/dL 1.6-2.6 [facility] Respiratory pathogens detect ion panel by molecular detection methodOrdered By: Sommer Resendiz on 01-10-2025 Respiratory pathogens DNA and RNA panel JAYDON+probe (Resp) [facility] Pulmonary Visit Reporton Pulmonary Visit Report Normal [facility] Cardiology Visit Reporton Cardiology Visit Report Normal [facility] 12 Lead EKGon 12-17-2024 12 Lead EKG Normal [facility] Basic Metabolic Profile (BMP )on 12-17-2024 BUN/CRE 24.1 RATIO High 10-20 [facility] Comment on above: Order Comment: 1Y Performed By: #### L 503.6005, L500.2500, L100.0500, L501.5425 ####[facility] [address] [place], [address] CA,Total 9.0 mg/dL Normal 8.5-10.1 [facility] Comment on above: Order Comment: 1Y Performed By: #### L 503.6005, L500.2500, L100.0500, L501.5425 ####[facility] [address] [place], [address] Chloride [Moles/Vol] 106 mmol/L Normal 98-107 [facility] Comment on above: Order Comment: 1Y Performed By: #### L 503.6005, L500.2500, L100.0500, L501.5425 ####[facility] [address] [place], [address] CO2 [Moles/Vol] 27.0 mmol/L Normal 21.0-32.0 [facility] Comment on above: Order Comment: 1Y Performed By: #### L 503.6005, L500.2500, L100.0500, L501.5425 ####[facility] [address] [place], [address] Creatinine [Mass/Vol] 1.08 mg/dL High 0.55-1.02 [facility] Comment on above: Order Comment: 1Y Result Comment: The validity of the calculated GFR GFRAA in patients over70 years has not been determined. Clinical correlation isessential. Performed By: #### L 503.6005, L500.2500, L100.0500, L501.5425 ####[facility] [address] [place], [address] ECRCL 40.75 ml/min Normal [facility] Comment on above: Order Comment: 1Y Performed By: #### L 503.6005, L500.2500, L100.0500, L501.5425 ####[facility] [address] [place], [address] EST GFR - AA 64 mL/min Normal >60 [facility] Comment on above: Order Comment: 1Y Result Comment: Afri can [place]uran GFR Calc Performed By: #### L 503.6005, L500.2500, L100.0500, L501.5425 ####[facility] [address] [place], [address] GAP 7 Normal 5-15 [facility] Comment on above: Order Comment: 1Y Performed By: #### L 503.6005, L500.2500, L100.0500, L501.5425 ####[facility] [address] [place], [address] GFR/1.73 sq M.predicted among non-blacks MDRD (S/P/Bld) [Vol rate/Area] 53 mL/min/{1.73_m2} Low >60 [facility] Comment on above: Order Comment: 1Y Result Comment: Non- GFR Calc Performed By: #### L 503.6005, L500.2500, L100.0500, L501.5425 ####[facility] [address] [place], [address] Glucose [Mass/Vol] 96 mg/dL Normal 74-106 [facility] Comment on above: Order Comment: 1Y Performed By: #### L 503.6005, L500.2500, L100.0500, L501.5425 ####[facility] [address] [place], [address] Potassium [Moles/Vol] 4.4 mmol/L Normal 3.5-5.1 [facility] Comment on above: Order Comment: 1Y Performed By: #### L 503.6005, L500.2500, L100.0500, L501.5425 ####[facility] [address] [place], [address] Sodium [Moles/Vol] 140 mmol/L Normal 136-145 [facility] Comment on above: Order Comment: 1Y Performed By: #### L 503.6005, L500.2500, L100.0500, L501.5425 ####[facility] [address] [place], [address] Urea nitrogen [Mass/Vol] 26 mg/dL High 7-18 [facility] Comment on above: Order Comment: 1Y Performed By: #### L 503.6005, L500.2500, L100.0500, L501.5425 ####[facility] [address] [place], [address] CBC-Complete Blood Cnt No Di on 12-17-2024 Erythrocyte distribution width (RBC) [Ratio] 15.8 % High 11.6-14.6 [facility] Comment on above: Performed By: #### L 503.6005, L500.2500, L100.0500, L501.5425 ####[facility] [address] [place], [address] Hematocrit (Bld) [Volume fraction] 35.3 % Low 37-47 [facility] Comment on above: Performed By: #### L 503.6005, L500.2500, L100.0500, L501.5425 ####[facility] [address] [place], [address] Hemoglobin (Bld) [Mass/Vol] 11.3 g/dL Low 12.0-15.0 [facility] Comment on above: Performed By: #### L 503.6005, L500.2500, L100.0500, L501.5425 ####[facility] [address] [place], [address] MCH (RBC) [Entitic mass] 27.4 pg Normal 27.0-32.0 [facility] Comment on above: Performed By: #### L 503.6005, L500.2500, L100.0500, L501.5425 ####[facility] [address] [place], [address] MCHC (RBC) [Mass/Vol] 32.0 g/dL Normal 32-36 [facility] Comment on above: Performed By: #### L 503.6005, L500.2500, L100.0500, L501.5425 ####[facility] [address] [place], [address] MCV (RBC) [Entitic vol] 85.5 fL Normal 81-99 [address] [facility] Comment on above: Performed By: #### L 503.6005, L500.2500, L100.0500, L501.5425 ####[facility] [address] [place], [address] Platelet mean volume (Bld) [Entitic vol] 9.9 fL Normal 6.2-12.0 [facility] Comment on above: Performed By: #### L 503.6005, L500.2500, L100.0500, L501.5425 ####[facility] [address] [place], [address] Platelets (Bld) [#/Vol] 230 10*3/uL Normal 150-450 [facility] Comment on above: Performed By: #### L 503.6005, L500.2500, L100.0500, L501.5425 ####[facility] [address] [place], [address] RBC (Bld) [#/Vol] 4.13 10*6/uL Low 4.2-5.4 [facility] Comment on above: Performed By: #### L 503.6005, L500.2500, L100.0500, L501.5425 ####[facility] [address] [place], [address] RDW SD 49.2 fl High 35.1-43.9 [facility] Comment on above: Performed By: #### L 503.6005, L500.2500, L100.0500, L501.5425 ####[facility] [address] [place], [address] WBC (Bld) [#/Vol] 8.8 10*3/uL Normal 4.4-11.0 [facility] Comment on above: Performed By: #### L 503.6005, L500.2500, L100.0500, L501.5425 ####[facility] [address] [place], [address] Carbon dioxide measurementOr dered By: Jeffy Willoughby on 12-17-2024 CO2 [Moles/Vol] 27.0 mmol/L 21.0-32.0 [facility] Chest PA and Lateralon 12-17 Chest PA and Lateral Normal [facility] Chloride measurementOrdered By: Jeffyaura Willoughby on 12-17-2024 Chloride [Moles/Vol] 106 mmol/L 98-107 [facility] Emergency Department Summary on 12-17-2024 Emergency Department Summary Normal [facility] Erythrocyte distribution wid th ratioOrdered By: Jeffyaura Willoughby on 12-17-2024 Erythrocyte distribution width (RBC) [Ratio] 15.8 % High 11.6-14.6 [facility] Erythrocyte distribution wid th standard deviationOrdered By: Jeffy Willoughby on 12-17-2024 Erythrocyte distribution width (RBC) [Ratio] 49.2 fl High 35.1-43.9 [facility] Glomerular filtration rate ( GFR) estimationOrdered By: Jeffyaura Willoughby on 12-17-2024 GFR/1.73 sq M.predicted among non-blacks MDRD (S/P/Bld) [Vol rate/Area] 53 mL/min/{1.73_m2} Low >60 [facility] Glucose measurementOrdered B y: Jeffy Willoughby on 12-17-2024 Glucose [Mass/Vol] 96 mg/dL 74-106 [facility] Hematocrit Auto (Bld) [Volum e fraction]Ordered By: Jeffyaura Willoughby on 12-17-2024 Hematocrit (Bld) [Volume fraction] 35.3 % Low 37-47 [facility] Hemoglobin measurementOrdere d By: Jeffyaura Willoughby on 12-17-2024 Hemoglobin (Bld) [Mass/Vol] 11.3 g/dL Low 12.0-15.0 [facility] L501.4020on 12-17-2024 TROPONIN-I HS 23 pg/mL Normal 3.0-54.0 [facility] Comment on above: Result Comment: Plea se Note: New Test Units and Gender Specific Reference Ranges. For more information see Policy Stat Procedure [place] High Sensitivity Troponin (TNIH) and attachments. Performed By: #### L 501.4020 ####[facility] [address] [place], [address] L501.5425on 12-17-2024 TROPONIN-I HS 24 pg/mL Normal 3.0-54.0 [facility] Comment on above: Order Comment: 1Y Result Comment: Plea se Note: New Test Units and Gender Specific Reference Ranges. For more information see Policy Stat Procedure [place] High Sensitivity Troponin (TNIH) and attachments. Performed By: #### L 503.6005, L500.2500, L100.0500, L501.5425 ####[facility] [address] [place], [address] Lactic Acidon 12-17-2024 Lactate [Moles/Vol] 1.5 mmol/L Normal 0.4-1.9 [facility] Comment on above: Order Comment: Y Performed By: #### L 503.6005, L500.2500, L100.0500, L501.5425 ####[facility] [address] [place], [address] MCV (mean corpuscular volume ) determinationOrdered By: [facility] on 12-17-2024 MCV (RBC) [Entitic vol] 85.5 fL 81-99 W [facility] Mean corpuscular hemoglobin (MCH) determinationOrdered By: [facility] on 12-17-2024 MCH (RBC) [Entitic mass] 27.4 pg 27.0-32.0 [facility] Platelet countOrdered By: [facility] on 12-17-2024 Platelets (Bld) [#/Vol] 230 10*3/uL 150-450 [facility] Potassium measurementOrdered By: [facility] on 12-17-2024 Potassium [Moles/Vol] 4.4 mmol/L 3.5-5.1 [facility] RBC Auto (Bld) [#/Vol]Ordere d By: Jeffy Willoughby on 12-17-2024 RBC (Bld) [#/Vol] 4.13 10*6/uL Low 4.2-5.4 [facility] Serum or plasma calcium stefania urement (mass/volume)Ordered By: Jeffy Willoughby on 12-17-2024 Calcium [Mass/Vol] 9.0 mg/dL 8.5-10.1 [facility] Serum or plasma creatinine m easurement (mass/volume)Ordered By: Jeffy Willoughby on 12-17-2024 Creatinine [Mass/Vol] 1.08 mg/dL High 0.55-1.02 [facility] Serum or plasma urea nitroge n measurement (mass/volume)Ordered By: Jeffy Willoughby on 12-17-2024 Urea nitrogen [Mass/Vol] 26 mg/dL High 7-18 [facility] Sodium levelOrdered By: Jeffy Willoughby on 12-17-2024 Sodium [Moles/Vol] 140 mmol/L 136-145 [facility] Troponin IOrdered By: Jeffy rosario on 12-17-2024 Troponin I 23 pg/mL 3.0-54.0 [facility] White blood cell (WBC) count Ordered By: Jeffy Willoughby on 12-17-2024 WBC (Bld) [#/Vol] 8.8 10*3/uL 4.4-11.0 [facility] 12 Lead EKGon 12-11-2024 12 Lead EKG Normal [facility] Bilirubin, totalOrdered By: Kofi Weiner on 12-11-2024 Bilirubin [Mass/Vol] 0.30 mg/dL 0.20-1.00 [facility] CBC-Complete Blood Cnt No Di ffon 12-11-2024 Erythrocyte distribution width (RBC) [Ratio] 15.4 % High 11.6-14.6 [facility] Comment on above: Performed By: #### L 100.0500, L500.4050 ####[facility] [address] [place], [place], [id number] Hematocrit (Bld) [Volume fraction] 35.3 % Low 37-47 [facility] Comment on above: Performed By: #### L 100.0500, L500.4050 ####[facility] [address] [place], [address] Hemoglobin (Bld) [Mass/Vol] 11.2 g/dL Low 12.0-15.0 [facility] Comment on above: Performed By: #### L 100.0500, L500.4050 ####[facility] [address] [place], [address] MCH (RBC) [Entitic mass] 26.4 pg Low 27.0-32.0 [facility] Comment on above: Performed By: #### L 100.0500, L500.4050 ####[facility] [address] [place], [address] MCHC (RBC) [Mass/Vol] 31.7 g/dL Low 32-36 [facility] Comment on above: Performed By: #### L 100.0500, L500.4050 ####[facility] [address] [place], [address] MCV (RBC) [Entitic vol] 83.3 fL Normal 81-99 [facility] Comment on above: Performed By: #### L 100.0500, L500.4050 ####[facility] [address] [place], [address] Platelet mean volume (Bld) [Entitic vol] 10.0 fL Normal 6.2-12.0 [facility] Comment on above: Performed By: #### L 100.0500, L500.4050 ####[facility] [address] [place], [address] Platelets (Bld) [#/Vol] 197 10*3/uL Normal 150-450 [facility] Comment on above: Performed By: #### L 100.0500, L500.4050 ####[facility] [address] [place], [address] RBC (Bld) [#/Vol] 4.24 10*6/uL Normal 4.2-5.4 [facility] Comment on above: Performed By: #### L 100.0500, L500.4050 ####[facility] [address] [place], [address] RDW SD 46.5 fl High 35.1-43.9 [facility] Comment on above: Performed By: #### L 100.0500, L500.4050 ####[facility] [address] [place], [address] WBC (Bld) [#/Vol] 7.7 10*3/uL Normal 4.4-11.0 [facility] Comment on above: Performed By: #### L 100.0500, L500.4050 ####[facility] [address] [place], [address] Carbon dioxide measurementOr dered By: Kofi Weiner on 12-11-2024 CO2 [Moles/Vol] 24.0 mmol/L 21.0-32.0 [facility] Cardiac Cath Diagnosticon Cardiac Cath Diagnostic Normal [facility] Chloride measurementOrdered By: Kofi Weiner on 12-11-2024 Chloride [Moles/Vol] 103 mmol/L 98-107 [facility] Comprehensive Metabolic Prof ilon 12-11-2024 Albumin [Mass/Vol] 3.0 g/dL Low 3.2-5.0 [facility] Comment on above: Performed By: #### L 100.0500, L500.4050 ####[facility] [address] [place], [address] Albumin/Globulin [Mass ratio] 0.9 {ratio} Normal 0.9-2.4 [facility] Comment on above: Performed By: #### L 100.0500, L500.4050 ####[facility] [address] [place], [address] ALK P 123 U/L High 45-117 [facility] Comment on above: Performed By: #### L 100.0500, L500.4050 ####[facility] [address] [place], [address] ALT [Catalytic activity/Vol] 12 U/L Low 13-56 [facility] Comment on above: Performed By: #### L 100.0500, L500.4050 ####[facility] [address] [place], [address] AST [Catalytic activity/Vol] 13 U/L Low 15-37 [facility] Comment on above: Performed By: #### L 100.0500, L500.4050 ####[facility] [address] [place], [address] Bilirubin [Mass/Vol] 0.30 mg/dL Normal 0.20-1.00 [facility] Comment on above: Result Comment: For patients on eltrombopag therapy, use of Dimension [place] TBIL is not recommended. Performed By: #### L 100.0500, L500.4050 ####[facility] [address] [place], [address] BUN/CRE 20.3 RATIO High 10-20 [facility] Comment on above: Performed By: #### L 100.0500, L500.4050 ####[facility] [address] [place], [address] CA,Total 8.9 mg/dL Normal 8.5-10.1 [facility] Comment on above: Performed By: #### L 100.0500, L500.4050 ####[facility] [address] [place], [address] Chloride [Moles/Vol] 103 mmol/L Normal 98-107 [facility] Comment on above: Performed By: #### L 100.0500, L500.4050 ####[facility] [address] [place], [address] CO2 [Moles/Vol] 24.0 mmol/L Normal 21.0-32.0 [facility] Comment on above: Performed By: #### L 100.0500, L500.4050 ####[facility] [address] [place], [address] Creatinine [Mass/Vol] 1.18 mg/dL High 0.55-1.02 [facility] Comment on above: Result Comment: The validity of the calculated GFR GFRAA in patients over70 years has not been determined. Clinical correlation isessential. Performed By: #### L 100.0500, L500.4050 ####[facility] [address] [place], [address] ECRCL 36.07 ml/min Normal [facility] Comment on above: Performed By: #### L 100.0500, L500.4050 ####[facility] [address] [place], [address] EST GFR - AA 58 mL/min Low >60 [facility] Comment on above: Result Comment: Afri can [place] GFR Calc Performed By: #### L 100.0500, L500.4050 ####[facility] [address] [place], [address] GAP 8 Normal 5-15 [facility] Comment on above: Performed By: #### L 100.0500, L500.4050 ####[facility] [address] [place], [address] GFR/1.73 sq M.predicted among non-blacks MDRD (S/P/Bld) [Vol rate/Area] 48 mL/min/{1.73_m2} Low >60 [facility] Comment on above: Result Comment: Non- GFR Calc Performed By: #### L 100.0500, L500.4050 ####[facility] [address] [place], [address] Globulin (S) [Mass/Vol] 3.4 g/dL Normal 2.2-4.2 [facility] Comment on above: Performed By: #### L 100.0500, L500.4050 ####[facility] [address] [place], [address] Glucose [Mass/Vol] 98 mg/dL Normal 74-106 [facility] Comment on above: Performed By: #### L 100.0500, L500.4050 ####[facility] [address] [place], [address] Potassium [Moles/Vol] 4.0 mmol/L Normal 3.5-5.1 [facility] Comment on above: Performed By: #### L 100.0500, L500.4050 ####[facility] [address] [place], [address] Sodium [Moles/Vol] 135 mmol/L Low 136-145 [facility] Comment on above: Performed By: #### L 100.0500, L500.4050 ####[facility] [address] [place], [address] T PROT 6.4 g/dL Normal 6.4-8.2 [facility] Comment on above: Performed By: #### L 100.0500, L500.4050 ####[facility] [address] [place], [address] Urea nitrogen [Mass/Vol] 24 mg/dL High 7-18 [facility] Comment on above: Performed By: #### L 100.0500, L500.4050 ####[facility] [address] [place], [address] Discharge Instructionon 11-20 Discharge Instruction Normal [facility] Erythrocyte distribution wid th ratioOrdered By: Kofi Weiner on 12-11-2024 Erythrocyte distribution width (RBC) [Ratio] 15.4 % High 11.6-14.6 [facility] Erythrocyte distribution wid th standard deviationOrdered By: Kofi Weiner on 12-11-2024 Erythrocyte distribution width (RBC) [Ratio] 46.5 fl High 35.1-43.9 [facility] Glomerular filtration rate ( GFR) estimationOrdered By: Kofi Weiner on 12-11-2024 GFR/1.73 sq M.predicted among non-blacks MDRD (S/P/Bld) [Vol rate/Area] 48 mL/min/{1.73_m2} Low >60 [facility] Glucose measurementOrdered B y: Kofi Weiner on 12-11-2024 Glucose [Mass/Vol] 98 mg/dL 74-106 [facility] Hematocrit Auto (Bld) [Volum e fraction]Ordered By: Kofi Weiner on 12-11-2024 Hematocrit (Bld) [Volume fraction] 35.3 % Low 37-47 [facility] Hemoglobin measurementOrdere d By: Kofi Weiner on 12-11-2024 Hemoglobin (Bld) [Mass/Vol] 11.2 g/dL Low 12.0-15.0 [facility] MCV (mean corpuscular volume ) determinationOrdered By: Kofi Weiner on 12-11-2024 MCV (RBC) [Entitic vol] 83.3 fL 81-99 W [facility] Mean corpuscular hemoglobin (MCH) determinationOrdered By: Kofi Weiner on 12-11-2024 MCH (RBC) [Entitic mass] 26.4 pg Low 27.0-32.0 [facility] No Panel InformationOrdered By: Kofi Weiner on 12-11-2024 13 U/L Low 15-37 [facility] Platelet countOrdered By: Kacie Weiner on 12-11-2024 Platelets (Bld) [#/Vol] 197 10*3/uL 150-450 [facility] Potassium measurementOrdered By: Kofi Weiner on 12-11-2024 Potassium [Moles/Vol] 4.0 mmol/L 3.5-5.1 [facility] RBC Auto (Bld) [#/Vol]Ordere d By: Kofi Weiner on 12-11-2024 RBC (Bld) [#/Vol] 4.24 10*6/uL 4.2-5.4 [facility] Serum globulin measurementOr dered By: Kofi Weiner on 12-11-2024 Globulin (S) [Mass/Vol] 3.4 g/dL 2.2-4.2 [facility] Serum or plasma alanine pizarro otransferase (ALT) measurementOrdered By: Kofi Weiner on 12-11-2024 ALT [Catalytic activity/Vol] 12 U/L Low 13-56 [facility] Serum or plasma albumin stefania urement (mass/volume)Ordered By: Kofi Weiner on 12-11-2024 Albumin [Mass/Vol] 3.0 g/dL Low 3.2-5.0 [facility] Serum or plasma alkaline anthony sphatase measurementOrdered By: Kofi Weiner on 12-11-2024 ALP [Catalytic activity/Vol] 123 U/L High 45-117 [facility] Serum or plasma calcium stefania urement (mass/volume)Ordered By: Kofi Weiner on 12-11-2024 Calcium [Mass/Vol] 8.9 mg/dL 8.5-10.1 [facility] Serum or plasma creatinine m easurement (mass/volume)Ordered By: Kofi Weiner on 12-11-2024 Creatinine [Mass/Vol] 1.18 mg/dL High 0.55-1.02 [facility] Serum or plasma urea nitroge n measurement (mass/volume)Ordered By: Kofi Weiner on 12-11-2024 Urea nitrogen [Mass/Vol] 24 mg/dL High 7-18 [facility] Sodium levelOrdered By: Jose Weiner on 12-11-2024 Sodium [Moles/Vol] 135 mmol/L Low 136-145 [facility] Stool Occult Blood iFOBon STOB Normal [facility] Comment on above: Performed By: #### M 100.7900 ####[facility] [address] [place], [place], [id number] Stool gastrointestinal hemog lobin detection by immunologic methodOrdered By: Trina Tyler on 12-11-2024 Lower GI hemoglobin IA Ql (Stl) [facility] Total proteinOrdered By: Billy Weiner on 12-11-2024 Protein [Mass/Vol] 6.4 g/dL 6.4-8.2 [facility] White blood cell (WBC) count Ordered By: Kofi Weiner on 12-11-2024 WBC (Bld) [#/Vol] 7.7 10*3/uL 4.4-11.0 [facility] 12 Lead EKGon 12-10-2024 12 Lead EKG Normal [facility] 12 Lead EKG Normal [facility] Absolute lymphocyte countOrd ered By: Trina Tyler on 12-10-2024 Lymphocytes Auto (Unsp spec) [#/Vol] 0.76 10*3/uL Low 0.83-4.51 [facility] Automated lymphocyte count a s percentage of total leukocytesOrdered By: Trina Tyler on 12-10-2024 Lymphocytes/100 WBC Auto (Unsp spec) 10.6 % Low 19-41 [facility] Basic Metabolic Profile (BMP )on 12-10-2024 BUN/CRE 22.3 RATIO High 10-20 [facility] Comment on above: Performed By: #### L 500.2500, L501.9520, L500.4100, L100.0100 ####[facility] [address] [place], [address] CA,Total 9.2 mg/dL Normal 8.5-10.1 [facility] Comment on above: Performed By: #### L 500.2500, L501.9520, L500.4100, L100.0100 ####[facility] [address] [place], [address] Chloride [Moles/Vol] 103 mmol/L Normal 98-107 [facility] Comment on above: Performed By: #### L 500.2500, L501.9520, L500.4100, L100.0100 ####[facility] [address] [place], [address] CO2 [Moles/Vol] 26.0 mmol/L Normal 21.0-32.0 [facility] Comment on above: Performed By: #### L 500.2500, L501.9520, L500.4100, L100.0100 ####[facility] [address] [place], [address] Creatinine [Mass/Vol] 1.03 mg/dL High 0.55-1.02 [facility] Comment on above: Result Comment: The validity of the calculated GFR GFRAA in patients over70 years has not been determined. Clinical correlation isessential. Performed By: #### L 500.2500, L501.9520, L500.4100, L100.0100 ####[facility] [address] [place], [address] ECRCL 41.32 ml/min Normal [facility] Comment on above: Performed By: #### L 500.2500, L501.9520, L500.4100, L100.0100 ####[facility] [address] [place], [address] EST GFR - AA 68 mL/min Normal >60 [facility] Comment on above: Result Comment: Afri can [place] GFR Calc Performed By: #### L 500.2500, L501.9520, L500.4100, L100.0100 ####[facility] [address] [place], [address] GAP 9 Normal 5-15 [facility] Comment on above: Performed By: #### L 500.2500, L501.9520, L500.4100, L100.0100 ####[facility] [address] [place], [address] GFR/1.73 sq M.predicted among non-blacks MDRD (S/P/Bld) [Vol rate/Area] 56 mL/min/{1.73_m2} Low >60 [facility] Comment on above: Result Comment: Non- GFR Calc Performed By: #### L 500.2500, L501.9520, L500.4100, L100.0100 ####[facility] [address] [place], [address] Glucose [Mass/Vol] 85 mg/dL Normal 74-106 [facility] Comment on above: Performed By: #### L 500.2500, L501.9520, L500.4100, L100.0100 ####[facility] [address] [place], [address] Potassium [Moles/Vol] 3.8 mmol/L Normal 3.5-5.1 [facility] Comment on above: Performed By: #### L 500.2500, L501.9520, L500.4100, L100.0100 ####[facility] [address] [place], [address] Sodium [Moles/Vol] 138 mmol/L Normal 136-145 [facility] Comment on above: Performed By: #### L 500.2500, L501.9520, L500.4100, L100.0100 ####[facility] [address] [place], [address] Urea nitrogen [Mass/Vol] 23 mg/dL High 7-18 [facility] Comment on above: Performed By: #### L 500.2500, L501.9520, L500.4100, L100.0100 ####[facility] [address] [place], [address] Basophil percentageOrdered B y: Trina Tyler on 12-10-2024 Basophils/100 WBC (Bld) 0.7 % 0-1 W [facility] CBC W/Diff, Automatedon 11-20 Absolute Lymph 0.76 X10 3/uL Low 0.83-4.51 [facility] Comment on above: Performed By: #### L 500.2500, L501.9520, L500.4100, L100.0100 ####[facility] [address] [place], [address] Absolute Neut 5.7 X10 3/uL Normal 2.0-7.7 [facility] Comment on above: Performed By: #### L 500.2500, L501.9520, L500.4100, L100.0100 ####[facility] [address] [place], [address] Basophils/100 WBC (Bld) 0.7 % Normal 0-1 W [facility] Comment on above: Performed By: #### L 500.2500, L501.9520, L500.4100, L100.0100 ####[facility] [address] [place], [address] Eosinophils/100 WBC (Bld) 1.5 % Normal 0-5 [facility] Comment on above: Performed By: #### L 500.2500, L501.9520, L500.4100, L100.0100 ####[facility] [address] [place], [address] Erythrocyte distribution width (RBC) [Ratio] 15.3 % High 11.6-14.6 [facility] Comment on above: Performed By: #### L 500.2500, L501.9520, L500.4100, L100.0100 ####[facility] [address] [place], [address] Hematocrit (Bld) [Volume fraction] 37.9 % Normal 37-47 [facility] Comment on above: Performed By: #### L 500.2500, L501.9520, L500.4100, L100.0100 ####[facility] [address] [place], [address] Hemoglobin (Bld) [Mass/Vol] 12.2 g/dL Normal 12.0-15.0 [facility] Comment on above: Performed By: #### L 500.2500, L501.9520, L500.4100, L100.0100 ####[facility] [address] [place], [address] IG% 0.400 Normal 0.0-0.9 [facility] Comment on above: Result Comment: IG% - Immature Granulocytes (promyelocytes, myelocytes andmetamyelocytes) > 1% indicates that a LEFT SHIFT is Present. Performed By: #### L 500.2500, L501.9520, L500.4100, L100.0100 ####[facility] [address] [place], [address] Lymphocytes/100 WBC (Bld) 10.6 % Low 19-41 [facility] Comment on above: Performed By: #### L 500.2500, L501.9520, L500.4100, L100.0100 ####[facility] [address] [place], [address] MCH (RBC) [Entitic mass] 27.0 pg Normal 27.0-32.0 [facility] Comment on above: Performed By: #### L 500.2500, L501.9520, L500.4100, L100.0100 ####[facility] [address] [place], [address] MCHC (RBC) [Mass/Vol] 32.2 g/dL Normal 32-36 [facility] Comment on above: Performed By: #### L 500.2500, L501.9520, L500.4100, L100.0100 ####[facility] [address] [place], [address] MCV (RBC) [Entitic vol] 83.8 fL Normal 81-99 W [facility] Comment on above: Performed By: #### L 500.2500, L501.9520, L500.4100, L100.0100 ####[facility] [address] [place], [address] Monocytes/100 WBC (Bld) 7.4 % Normal 0-10 W [facility] Comment on above: Performed By: #### L 500.2500, L501.9520, L500.4100, L100.0100 ####[facility] [address] [place], [address] Neutrophils/100 WBC (Bld) 79.4 % High 47-70 [facility] Comment on above: Performed By: #### L 500.2500, L501.9520, L500.4100, L100.0100 ####[facility] [address] [place], [address] Nucleated RBC (Bld) [#/Vol] 0 10*3/uL Normal 0-5 [facility] Comment on above: Performed By: #### L 500.2500, L501.9520, L500.4100, L100.0100 ####[facility] [address] [place], [address] Platelet mean volume (Bld) [Entitic vol] 9.7 fL Normal 6.2-12.0 [facility] Comment on above: Performed By: #### L 500.2500, L501.9520, L500.4100, L100.0100 ####[facility] [address] [place], [address] Platelets (Bld) [#/Vol] 175 10*3/uL Normal 150-450 [facility] Comment on above: Performed By: #### L 500.2500, L501.9520, L500.4100, L100.0100 ####[facility] [address] [place], [address] RBC (Bld) [#/Vol] 4.52 10*6/uL Normal 4.2-5.4 [facility] Comment on above: Performed By: #### L 500.2500, L501.9520, L500.4100, L100.0100 ####[facility] [address] [place], [address] RDW SD 46.5 fl High 35.1-43.9 [facility] Comment on above: Performed By: #### L 500.2500, L501.9520, L500.4100, L100.0100 ####[facility] [address] [place], [address] WBC (Bld) [#/Vol] 7.2 10*3/uL Normal 4.4-11.0 [facility] Comment on above: Performed By: #### L 500.2500, L501.9520, L500.4100, L100.0100 ####[facility] [address] [place], [address] Consultation - Cardiologyon 12-10-2024 Consultation - Cardiology Normal [facility] Eosinophil percentageOrdered By: Trina Tyler on 12-10-2024 Eosinophils/100 WBC (Bld) 1.5 % 0-5 [facility] High density lipoprotein (HD L) measurementOrdered By: Trina Tyler on 12-10-2024 High density lipoprotein (HDL) measurement 49 mg/dL >40 [facility] Immature granulocytes/100 WB C Auto (Bld)Ordered By: Trina Tyler on 12-10-2024 Immature granulocytes/100 WBC (Bld) 0.400 % 0.0-0.9 [facility] Lipid Profileon 12-10-2024 Cholesterol [Mass/Vol] 189 mg/dL Normal 200 [facility] Comment on above: Result Comment: <200 mg/dL Desirable 200-240 mg/dL Borderline >240 mg/dL High Risk Performed By: #### L 500.2500, L501.9520, L500.4100, L100.0100 ####[facility] [address] [place], [address] Cholesterol in HDL [Mass/Vol] 49 mg/dL Normal [facility] Comment on above: Result Comment: The drugs N-Acetylcysteine and Metamizole may falselydepress this assay. Reference Range HDL <40 mg/dL Low HDL Cholesterol HDL >or= 60 mg/dL High HDL Cholesterol Performed By: #### L 500.2500, L501.9520, L500.4100, L100.0100 ####[facility] [address] [place], [address] Cholesterol in LDL [Mass/Vol] 119 mg/dL Normal 0-130 [facility] Comment on above: Performed By: #### L 500.2500, L501.9520, L500.4100, L100.0100 ####[facility] [address] [place], [address] Cholesterol in VLDL [Mass/Vol] 21 mg/dL Normal 5-40 [facility] Comment on above: Performed By: #### L 500.2500, L501.9520, L500.4100, L100.0100 ####[facility] [address] [place], [address] Triglyceride [Mass/Vol] 106 mg/dL Normal W [facility] Comment on above: Result Comment: The drugs N-Acetylcysteine and Metamizole may falselydepress this assay.Serum Triglycerides Reference Interval Normal <150 mg/dL Borderline high 150 - 199 mg/dL High 200 - 499 mg/dL Very High > or = 500 mg/dL Performed By: #### L 500.2500, L501.9520, L500.4100, L100.0100 ####[facility] [address] [place], [place], [id number] Low density lipoprotein (LDL ) cholesterol measurementOrdered By: Trina Tyler on 12-10-2024 Low density lipoprotein (LDL) cholesterol measurement 119 mg/dL 0-130 [facility] Monocyte percentageOrdered B y: Trina Tyler on 12-10-2024 Monocytes/100 WBC (Bld) 7.4 % 0-10 W [facility] Neutrophil percentageOrdered By: Trina Tyler on 12-10-2024 Neutrophils/100 WBC (Bld) 79.4 % High 47-70 [facility] Serum or plasma cholesterol measurement (mass/volume)Ordered By: Trina Tyler on 12-10-2024 Cholesterol [Mass/Vol] 189 mg/dL <200 [facility] Serum or plasma thyroid stim ulating hormone (TSH) measurement (units/volume)Ordered By: Trina Tyler on 12-10-2024 TSH Qn 0.715 uIU/mL 0.358-3.74 0 [facility] Thyroid Stim Hormone (TSH)on 12-10-2024 TSH 0.715 uIU/mL Normal 0.358-3.74 0 [facility] Comment on above: Performed By: #### L 500.2500, L501.9520, L500.4100, L100.0100 ####[facility] [address] [place], [place], [id number] Very low density lipoprotein (VLDL) cholesterol measurementOrdered By: Trina Tyler on 12-10-2024 Very low density lipoprotein (VLDL) cholesterol measurement 21 mg/dL 5-40 [facility] 12 Lead EKGon 12-09-2024 12 Lead EKG Normal [facility] 12 Lead EKG Normal [facility] 12 Lead EKG Normal [facility] Basic Metabolic Profile (BMP )on 12-09-2024 BUN/CRE 14.3 RATIO Normal 10-20 [facility] Comment on above: Order Comment: 1Y Performed By: #### L 501.5425, L501.5200, L500.2500, L100.0100 ####[facility] [address] [place], [address] CA,Total 9.8 mg/dL Normal 8.5-10.1 [facility] Comment on above: Order Comment: 1Y Performed By: #### L 501.5425, L501.5200, L500.2500, L100.0100 ####[facility] [address] [place], [address] Chloride [Moles/Vol] 104 mmol/L Normal 98-107 [facility] Comment on above: Order Comment: 1Y Performed By: #### L 501.5425, L501.5200, L500.2500, L100.0100 ####[facility] [address] [place], [address] CO2 [Moles/Vol] 26.0 mmol/L Normal 21.0-32.0 [facility] Comment on above: Order Comment: 1Y Performed By: #### L 501.5425, L501.5200, L500.2500, L100.0100 ####[facility] [address] [place], [address] Creatinine [Mass/Vol] 1.26 mg/dL High 0.55-1.02 [facility] Comment on above: Order Comment: 1Y Result Comment: The validity of the calculated GFR GFRAA in patients over70 years has not been determined. Clinical correlation isessential. Performed By: #### L 501.5425, L501.5200, L500.2500, L100.0100 ####[facility] [address] [place], [address] ECRCL 29.84 ml/min Normal [facility] Comment on above: Order Comment: 1Y Performed By: #### L 501.5425, L501.5200, L500.2500, L100.0100 ####[facility] [address] [place], [address] EST GFR - AA 54 mL/min Low >60 [facility] Comment on above: Order Comment: 1Y Result Comment: Afri can [place] GFR Calc Performed By: #### L 501.5425, L501.5200, L500.2500, L100.0100 ####[facility] [address] [place], [address] GAP 8 Normal 5-15 [facility] Comment on above: Order Comment: 1Y Performed By: #### L 501.5425, L501.5200, L500.2500, L100.0100 ####[facility] [address] [place], [address] GFR/1.73 sq M.predicted among non-blacks MDRD (S/P/Bld) [Vol rate/Area] 45 mL/min/{1.73_m2} Low >60 [facility] Comment on above: Order Comment: 1Y Result Comment: Non- GFR Calc Performed By: #### L 501.5425, L501.5200, L500.2500, L100.0100 ####[facility] [address] [place], [address] Glucose [Mass/Vol] 118 mg/dL High 74-106 [facility] Comment on above: Order Comment: 1Y Result Comment: Fast ing Glucose result from 100 to 125 mg/dLsuggests IMPAIRED HOMEOSTASIS per A.D.A. criteria. Performed By: #### L 501.5425, L501.5200, L500.2500, L100.0100 ####[facility] [address] [place], [address] Potassium [Moles/Vol] 3.8 mmol/L Normal 3.5-5.1 [facility] Comment on above: Order Comment: 1Y Performed By: #### L 501.5425, L501.5200, L500.2500, L100.0100 ####[facility] [address] [place], [address] Sodium [Moles/Vol] 138 mmol/L Normal 136-145 [facility] Comment on above: Order Comment: 1Y Performed By: #### L 501.5425, L501.5200, L500.2500, L100.0100 ####[facility] [address] [place], [address] Urea nitrogen [Mass/Vol] 18 mg/dL Normal 7-18 [facility] Comment on above: Order Comment: 1Y Performed By: #### L 501.5425, L501.5200, L500.2500, L100.0100 ####[facility] [address] [place], [address] Brain/Head without Contrasto n 12-09-2024 Brain/Head without Contrast Normal [facility] CBC W/Diff, Automatedon 11-20 Absolute Lymph 0.84 X10 3/uL Normal 0.83-4.51 [facility] Comment on above: Performed By: #### L 501.5425, L501.5200, L500.2500, L100.0100 ####[facility] [address] [place], [address] Absolute Neut 7.9 X10 3/uL High 2.0-7.7 [facility] Comment on above: Performed By: #### L 501.5425, L501.5200, L500.2500, L100.0100 ####[facility] [address] [place], [address] Basophils/100 WBC (Bld) 0.6 % Normal 0-1 W [facility] Comment on above: Performed By: #### L 501.5425, L501.5200, L500.2500, L100.0100 ####[facility] [address] [place], [address] Eosinophils/100 WBC (Bld) 1.1 % Normal 0-5 [facility] Comment on above: Performed By: #### L 501.5425, L501.5200, L500.2500, L100.0100 ####[facility] [address] [place], [address] Erythrocyte distribution width (RBC) [Ratio] 15.7 % High 11.6-14.6 [facility] Comment on above: Performed By: #### L 501.5425, L501.5200, L500.2500, L100.0100 ####[facility] [address] [place], [address] Hematocrit (Bld) [Volume fraction] 41.9 % Normal 37-47 [facility] Comment on above: Performed By: #### L 501.5425, L501.5200, L500.2500, L100.0100 ####[facility] [address] [place], [address] Hemoglobin (Bld) [Mass/Vol] 13.5 g/dL Normal 12.0-15.0 [facility] Comment on above: Performed By: #### L 501.5425, L501.5200, L500.2500, L100.0100 ####[facility] [address] [place], [address] IG% 0.600 Normal 0.0-0.9 [facility] Comment on above: Result Comment: IG% - Immature Granulocytes (promyelocytes, myelocytes andmetamyelocytes) > 1% indicates that a LEFT SHIFT is Present. Performed By: #### L 501.5425, L501.5200, L500.2500, L100.0100 ####[facility] [address] [place], [address] Lymphocytes/100 WBC (Bld) 8.7 % Low 19-41 [facility] Comment on above: Performed By: #### L 501.5425, L501.5200, L500.2500, L100.0100 ####[facility] [address] [place], [address] MCH (RBC) [Entitic mass] 27.2 pg Normal 27.0-32.0 [facility] Comment on above: Performed By: #### L 501.5425, L501.5200, L500.2500, L100.0100 ####[facility] [address] [place], [address] MCHC (RBC) [Mass/Vol] 32.2 g/dL Normal 32-36 [facility] Comment on above: Performed By: #### L 501.5425, L501.5200, L500.2500, L100.0100 ####[facility] [address] [place], [address] MCV (RBC) [Entitic vol] 84.3 fL Normal 81-99 [facility] Comment on above: Performed By: #### L 501.5425, L501.5200, L500.2500, L100.0100 ####[facility] [address] [place], [address] Monocytes/100 WBC (Bld) 6.8 % Normal 0-10 [facility] Comment on above: Performed By: #### L 501.5425, L501.5200, L500.2500, L100.0100 ####[facility] [address] [place], [address] Neutrophils/100 WBC (Bld) 82.2 % High 47-70 [facility] Comment on above: Performed By: #### L 501.5425, L501.5200, L500.2500, L100.0100 ####[facility] [address] [place], [address] Nucleated RBC (Bld) [#/Vol] 0 10*3/uL Normal 0-5 [facility] Comment on above: Performed By: #### L 501.5425, L501.5200, L500.2500, L100.0100 ####[facility] [address] [place], [address] Platelet mean volume (Bld) [Entitic vol] 10.2 fL Normal 6.2-12.0 [facility] Comment on above: Performed By: #### L 501.5425, L501.5200, L500.2500, L100.0100 ####[facility] [address] [place], [address] Platelets (Bld) [#/Vol] 191 10*3/uL Normal 150-450 [facility] Comment on above: Performed By: #### L 501.5425, L501.5200, L500.2500, L100.0100 ####[facility] [address] [place], [address] RBC (Bld) [#/Vol] 4.97 10*6/uL Normal 4.2-5.4 [facility] Comment on above: Performed By: #### L 501.5425, L501.5200, L500.2500, L100.0100 ####[facility] [address] [place], [address] RDW SD 48.3 fl High 35.1-43.9 [facility] Comment on above: Performed By: #### L 501.5425, L501.5200, L500.2500, L100.0100 ####[facility] [address] [place], [address] WBC (Bld) [#/Vol] 9.6 10*3/uL Normal 4.4-11.0 [facility] Comment on above: Performed By: #### L 501.5425, L501.5200, L500.2500, L100.0100 ####[facility] [address] [place], [address] Chest 1 View (Portable)on Chest 1 View (Portable) Normal W [facility] Echo Complete W/ Contraston 12-09-2024 Echo Complete W/ Contrast Normal [facility] Emergency Department Summary on 12-09-2024 Emergency Department Summary Normal [facility] H AND P Exam - Hospitaliston 12-09-2024 H&P Exam - Hospitalist Normal [facility] L501.4020on 12-09-2024 TROPONIN-I HS 72 pg/mL High 3.0-54.0 [facility] Comment on above: Order Comment: 'TROP ' Serial specimen #1, #2 or #3: 3 Result Comment: Plea se Note: New Test Units and Gender Specific Reference Ranges. For more information see Policy Stat Procedure [place] High Sensitivity Troponin (TNIH) and attachments. Performed By: #### L 501.4020 ####[facility] [address] [place], [address] TROPONIN-I HS 74 pg/mL High 3.0-54.0 [facility] Comment on above: Result Comment: Plea se Note: New Test Units and Gender Specific Reference Ranges. For more information see Policy Stat Procedure [place] High Sensitivity Troponin (TNIH) and attachments. Performed By: #### L 501.4020 ####[facility] [address] [place], [address] L501.5425on 12-09-2024 TROPONIN-I HS 91 pg/mL High 3.0-54.0 [facility] Comment on above: Order Comment: 1Y Result Comment: Plea se Note: New Test Units and Gender Specific Reference Ranges. For more information see Policy Stat Procedure [place] High Sensitivity Troponin (TNIH) and attachments. Performed By: #### L 501.5425, L501.5200, L500.2500, L100.0100 ####[facility] [address] [place], [address] Magnesiumon 12-09-2024 Magnesium [Mass/Vol] 2.3 mg/dL Normal 1.6-2.6 [facility] Comment on above: Order Comment: 1Y Performed By: #### L 501.5425, L501.5200, L500.2500, L100.0100 ####[facility] [address] [place], [address] Magnesium measurementOrdered By: Nuno Grider on 12-09-2024 Magnesium [Mass/Vol] 2.3 mg/dL 1.6-2.6 [facility] Troponin IOrdered By: Trina Tyler on 12-09-2024 Troponin I 72 pg/mL High 3.0-54.0 [facility] 12 Lead EKGon 11-28-2024 12 Lead EKG Normal [facility] Basic Metabolic Profile (BMP )on 11-28-2024 BUN/CRE 14.9 RATIO Normal 10-20 [facility] Comment on above: Performed By: #### L 100.0100, L500.2500, L300.8000 ####[facility] [address] [place], [address] CA,Total 9.5 mg/dL Normal 8.5-10.1 [facility] Comment on above: Performed By: #### L 100.0100, L500.2500, L300.8000 ####[facility] [address] [place], [address] Chloride [Moles/Vol] 105 mmol/L Normal 98-107 [facility] Comment on above: Performed By: #### L 100.0100, L500.2500, L300.8000 ####[facility] [address] [place], [address] CO2 [Moles/Vol] 26.0 mmol/L Normal 21.0-32.0 [facility] [facility] Comment on above: Performed By: #### L 100.0100, L500.2500, L300.8000 ####[facility] [address] [place], [address] Creatinine [Mass/Vol] 1.14 mg/dL High 0.55-1.02 [facility] Comment on above: Result Comment: The validity of the calculated GFR GFRAA in patients over70 years has not been determined. Clinical correlation isessential. Performed By: #### L 100.0100, L500.2500, L300.8000 ####[facility] [address] [place], [address] ECRCL 39.22 ml/min Normal [facility] Comment on above: Performed By: #### L 100.0100, L500.2500, L300.8000 ####[facility] [address] [place], [address] EST GFR - AA 61 mL/min Normal >60 [facility] Comment on above: Result Comment: Afri can [place]uran GFR Calc Performed By: #### L 100.0100, L500.2500, L300.8000 ####[facility] [address] [place], [address] GAP 7 Normal 5-15 [facility] Comment on above: Performed By: #### L 100.0100, L500.2500, L300.8000 ####[facility] [address] [place], [address] GFR/1.73 sq M.predicted among non-blacks MDRD (S/P/Bld) [Vol rate/Area] 50 mL/min/{1.73_m2} Low >60 [facility] Comment on above: Result Comment: Non- GFR Calc Performed By: #### L 100.0100, L500.2500, L300.8000 ####[facility] [address] [place], [address] Glucose [Mass/Vol] 107 mg/dL High 74-106 [facility] Comment on above: Result Comment: Fast ing Glucose result from 100 to 125 mg/dLsuggests IMPAIRED HOMEOSTASIS per A.D.A. criteria. Performed By: #### L 100.0100, L500.2500, L300.8000 ####[facility] [address] [place], [address] Potassium [Moles/Vol] 3.2 mmol/L Low 3.5-5.1 [facility] Comment on above: Performed By: #### L 100.0100, L500.2500, L300.8000 ####[facility] [address] [place], [address] Sodium [Moles/Vol] 138 mmol/L Normal 136-145 [facility] Comment on above: Performed By: #### L 100.0100, L500.2500, L300.8000 ####[facility] [address] [place], [address] Urea nitrogen [Mass/Vol] 17 mg/dL Normal 7-18 [facility] Comment on above: Performed By: #### L 100.0100, L500.2500, L300.8000 ####[facility] [address] [place], [address] Brain/Head without Contrasto n 11-28-2024 Brain/Head without Contrast Normal [facility] CBC W/Diff, Automatedon - 0-2024 Absolute Lymph 2.10 X10 3/uL Normal 0.83-4.51 [facility] Comment on above: Performed By: #### L 100.0100, L500.2500, L300.8000 ####[facility] [address] [place], [address] Absolute Neut 5.8 X10 3/uL Normal 2.0-7.7 [facility] Comment on above: Performed By: #### L 100.0100, L500.2500, L300.8000 ####[facility] [address] [place], [address] Basophils/100 WBC (Bld) 0.8 % Normal 0-1 W [facility] Comment on above: Performed By: #### L 100.0100, L500.2500, L300.8000 ####[facility] [address] [place], [address] Eosinophils/100 WBC (Bld) 2.3 % Normal 0-5 [facility] Comment on above: Performed By: #### L 100.0100, L500.2500, L300.8000 ####[facility] [address] [place], [address] Erythrocyte distribution width (RBC) [Ratio] 15.8 % High 11.6-14.6 [facility] Comment on above: Performed By: #### L 100.0100, L500.2500, L300.8000 ####[facility] [address] [place], [address] Hematocrit (Bld) [Volume fraction] 40.3 % Normal 37-47 [facility] Comment on above: Performed By: #### L 100.0100, L500.2500, L300.8000 ####[facility] [address] [place], [address] Hemoglobin (Bld) [Mass/Vol] 13.1 g/dL Normal 12.0-15.0 [facility] Comment on above: Performed By: #### L 100.0100, L500.2500, L300.8000 ####[facility] [address] [place], [address] IG% 0.400 Normal 0.0-0.9 [facility] Comment on above: Result Comment: IG% - Immature Granulocytes (promyelocytes, myelocytes andmetamyelocytes) > 1% indicates that a LEFT SHIFT is Present. Performed By: #### L 100.0100, L500.2500, L300.8000 ####[facility] [address] [place], [address] Lymphocytes/100 WBC (Bld) 23.0 % Normal 19-41 [facility] Comment on above: Performed By: #### L 100.0100, L500.2500, L300.8000 ####[facility] [address] [place], [address] MCH (RBC) [Entitic mass] 27.1 pg Normal 27.0-32.0 [facility] Comment on above: Performed By: #### L 100.0100, L500.2500, L300.8000 ####[facility] [address] [place], [address] MCHC (RBC) [Mass/Vol] 32.5 g/dL Normal 32-36 [facility] Comment on above: Performed By: #### L 100.0100, L500.2500, L300.8000 ####[facility] [address] [place], [address] MCV (RBC) [Entitic vol] 83.4 fL Normal 81-99 [facility] Comment on above: Performed By: #### L 100.0100, L500.2500, L300.8000 ####[facility] [address] [place], [address] Monocytes/100 WBC (Bld) 10.2 % High 0-10 [facility] Comment on above: Performed By: #### L 100.0100, L500.2500, L300.8000 ####[facility] [address] [place], [address] Neutrophils/100 WBC (Bld) 63.3 % Normal 47-70 [facility] Comment on above: Performed By: #### L 100.0100, L500.2500, L300.8000 ####[facility] [address] [place], [address] Nucleated RBC (Bld) [#/Vol] 0 10*3/uL Normal 0-5 [facility] Comment on above: Performed By: #### L 100.0100, L500.2500, L300.8000 ####[facility] [address] [place], [address] Platelet mean volume (Bld) [Entitic vol] 10.2 fL Normal 6.2-12.0 [facility] Comment on above: Performed By: #### L 100.0100, L500.2500, L300.8000 ####[facility] [address] [place], [address] Platelets (Bld) [#/Vol] 204 10*3/uL Normal 150-450 [facility] Comment on above: Performed By: #### L 100.0100, L500.2500, L300.8000 ####[facility] [address] [place], [address] RBC (Bld) [#/Vol] 4.83 10*6/uL Normal 4.2-5.4 [facility] Comment on above: Performed By: #### L 100.0100, L500.2500, L300.8000 ####[facility] [address] [place], [address] RDW SD 47.8 fl High 35.1-43.9 [facility] Comment on above: Performed By: #### L 100.0100, L500.2500, L300.8000 ####[facility] [address] [place], [address] WBC (Bld) [#/Vol] 9.1 10*3/uL Normal 4.4-11.0 [facility] Comment on above: Performed By: #### L 100.0100, L500.2500, L300.8000 ####[facility] [address] [place], [address] D-Dimer Quantitative (DVT/PE )on 11-28-2024 D-DIMER QUANT 0.40 FEU/ug/m Normal 0.27-0.49 [facility] Comment on above: Result Comment: NORM AL D-Dimer level (<0.50) indicates no DVT or PE. Performed By: #### L 100.0100, L500.2500, L300.8000 ####[facility] [address] [place], [address] Emergency Department Summary on 11-28-2024 Emergency Department Summary Normal [facility] Cardiology Visit Reporton Cardiology Visit Report Normal W [facility] 36on 11-20-2024 36 Patient called in an [...] tab): 09/15/24 Updated/Validated preferred pharmacy: [id number] Patient instructed to contact the pharmacy prior to picking up the medication: Yes [facility] 36 Last ov-12/14/23 Next ov- N/A [facility] Pulmonary Visit Reporton Pulmonary Visit Report Normal [facility] 6 Minute Walk Teston 024 6 Minute Walk Test Normal [facility] Low Dose CT Lung Screeningon 10-03-[address] Lung Screening [facility] 36on 09-15-2024 36 patient has been not ified of providers message. She will call back to schedule the appointment Normal [facility] 36 Refill for baclofen sent. Patient needs to schedule a follow up; in November it will be one year since she has last see. Normal [facility] 36 Last ov- 12/14/23 Next ov- n/a [facility] Abd Aortic/IVC Duplex scanon 08-27-2024 Abd Aortic/IVC Duplex scan Normal [facility] Ankle Brachial Indexon 08-27 Ankle Brachial Index Normal [facility] Pulmonary Visit Reporton Pulmonary Visit Report Normal [facility] CBC W/Diff, Automatedon 07-21 Absolute Lymph 1.25 X10 3/uL Normal 0.83-4.51 [facility] Comment on above: Order Comment: Inter face Comments:cc copy to Dr. Nicola Hernandez, Vascular SurgeonOrder Date: 08/14/24Order Info: [id number] - CBCDComments: cc copy to Dr. Nicola Hernandez, Vascular Surgeon Performed By: #### L 500.4050, L100.0100, L503.6550, L503.6030 ####[facility] [address] [place], [address] Absolute Neut 4.6 X10 3/uL Normal 2.0-7.7 [facility] Comment on above: Order Comment: Inter face Comments:cc copy to Dr. Nicola Hernandez Vascular SurgeonOrder Date: 08/14/24Order Info: [id number]- - CBCDComments: cc copy to Dr. Nicola Hernandez, Vascular Surgeon Performed By: #### L 500.4050, L100.0100, L503.6550, L503.6030 ####[facility] [address] [place], [address] Basophils/100 WBC (Bld) 0.7 % Normal 0-1 [facility] Comment on above: Order Comment: Inter face Comments:cc copy to Dr. Nicola Hernandez, Vascular SurgeonOrder Date: 08/14/24Order Info: [id number]- - CBCDComments: cc copy to Dr. Nicola Hernandez Vascular Surgeon Performed By: #### L 500.4050, L100.0100, L503.6550, L503.6030 ####[facility] [address] [place], [address] Eosinophils/100 WBC (Bld) 5.6 % High 0-5 [facility] Comment on above: Order Comment: Inter face Comments:cc copy to Dr. Nicola Hernandez Vascular SurgeonOrder Date: 08/14/24Order Info: [id number] - CBCDComments: cc copy to Dr. Nicola Hernandez, Vascular Surgeon Performed By: #### L 500.4050, L100.0100, L503.6550, L503.6030 ####[facility] [address] [place], [address] Erythrocyte distribution width (RBC) [Ratio] 15.4 % High 11.6-14.6 [facility] Comment on above: Order Comment: Inter face Comments:cc copy to Dr. Nicola Hernandez Vascular SurgeonOrder Date: 08/14/24Order Info: [id number] - CBCDComments: cc copy to Dr. Nicola Hernandez, Vascular Surgeon Performed By: #### L 500.4050, L100.0100, L503.6550, L503.6030 ####[facility] [address] [place], [address] Hematocrit (Bld) [Volume fraction] 39.2 % Normal 37-47 [facility] Comment on above: Order Comment: Inter face Comments:cc copy to Dr. Nicola Hernandez Vascular SurgeonOrder Date: 08/14/24Order Info: [id number] - CBCDComments: cc copy to Dr. Nicola Hernandez, Vascular Surgeon Performed By: #### L 500.4050, L100.0100, L503.6550, L503.6030 ####[facility] [address] [place], [address] Hemoglobin (Bld) [Mass/Vol] 12.1 g/dL Normal 12.0-15.0 [facility] Comment on above: Order Comment: Inter face Comments:cc copy to Dr. Nicola Hernandez Vascular SurgeonOrder Date: 08/14/24Order Info: [id number] - CBCDComments: cc copy to Dr. Nicola Hernandez, Vascular Surgeon Performed By: #### L 500.4050, L100.0100, L503.6550, L503.6030 ####[facility] [address] [place], [address] IG% 0.300 Normal 0.0-0.9 [facility] Comment on above: Order Comment: Inter face Comments:cc copy to Dr. Nicola Hernandez Vascular SurgeonOrder Date: 08/14/24Order Info: 018-1 - CBCDComments: cc copy to Dr. Nicola Hernandez Vascular Surgeon Result Comment: IG% - Immature Granulocytes (promyelocytes, myelocytes andmetamyelocytes) > 1% indicates that a LEFT SHIFT is Present. Performed By: #### L 500.4050, L100.0100, L503.6550, L503.6030 ####[facility] [address] [place], [address] Lymphocytes/100 WBC (Bld) 17.8 % Low 19-41 [facility] Comment on above: Order Comment: Inter face Comments:cc copy to Dr. Nicola Hernandez Vascular SurgeonOrder Date: 08/14/24Order Info: 018- - CBCDComments: cc copy to Dr. Nicola Hernandez Vascular Surgeon Performed By: #### L 500.4050, L100.0100, L503.6550, L503.6030 ####[facility] [address] [place], [address] MCH (RBC) [Entitic mass] 27.9 pg Normal 27.0-32.0 [facility] Comment on above: Order Comment: Inter face Comments:cc copy to Dr. Nicola Hernandez Vascular SurgeonOrder Date: 08/14/24Order Info: 018-1 - CBCDComments: cc copy to Dr. Nicola Hernandez Vascular Surgeon Performed By: #### L 500.4050, L100.0100, L503.6550, L503.6030 ####[facility] [address] [place], [address] MCHC (RBC) [Mass/Vol] 30.9 g/dL Low 32-36 [facility] Comment on above: Order Comment: Inter face Comments:cc copy to Dr. Nicola Hernandez Vascular SurgeonOrder Date: 08/14/24Order Info: [id number] - CBCDComments: cc copy to Dr. Nicola Hernandez, Vascular Surgeon Performed By: #### L 500.4050, L100.0100, L503.6550, L503.6030 ####[facility] [address] [place], [address] MCV (RBC) [Entitic vol] 90.5 fL Normal 81-99 [facility] Comment on above: Order Comment: Inter face Comments:cc copy to Dr. Nicola Hernandez Vascular SurgeonOrder Date: 08/14/24Order Info: [id number]- - CBCDComments: cc copy to Dr. Nicola Hernandez, Vascular Surgeon Performed By: #### L 500.4050, L100.0100, L503.6550, L503.6030 ####[facility] [address] [place], [address] Monocytes/100 WBC (Bld) 9.4 % Normal 0-10 [facility] Comment on above: Order Comment: Inter face Comments:cc copy to Dr. Nicola Hernandez Vascular SurgeonOrder Date: 08/14/24Order Info: [id number] - CBCDComments: cc copy to Dr. Nicola Hernandez Vascular Surgeon Performed By: #### L 500.4050, L100.0100, L503.6550, L503.6030 ####[facility] [address] [place], [address] Neutrophils/100 WBC (Bld) 66.2 % Normal 47-70 [facility] Comment on above: Order Comment: Inter face Comments:cc copy to Dr. Nicola Heranndez Vascular SurgeonOrder Date: 08/14/24Order Info: [id number] - CBCDComments: cc copy to Dr. Nicola Hernandez Vascular Surgeon Performed By: #### L 500.4050, L100.0100, L503.6550, L503.6030 ####[facility] [address] [place], [address] Nucleated RBC (Bld) [#/Vol] 0 10*3/uL Normal 0-5 [facility] Comment on above: Order Comment: Inter face Comments:cc copy to Dr. Nicola Hernandez Vascular SurgeonOrder Date: 08/14/24Order Info: [id number] - CBCDComments: cc copy to Dr. Nicola Hernandez Vascular Surgeon Performed By: #### L 500.4050, L100.0100, L503.6550, L503.6030 ####[facility] [address] [place], [address] Platelet mean volume (Bld) [Entitic vol] 10.9 fL Normal 6.2-12.0 [facility] Comment on above: Order Comment: Inter face Comments:cc copy to Dr. Nicola Hernandez Vascular SurgeonOrder Date: 08/14/24Order Info: [id number] - CBCDComments: cc copy to Dr. Nicola Hernandez, Vascular Surgeon Performed By: #### L 500.4050, L100.0100, L503.6550, L503.6030 ####[facility] [address] [place], [address] Platelets (Bld) [#/Vol] 160 10*3/uL Normal 150-450 [facility] Comment on above: Order Comment: Inter face Comments:cc copy to Dr. Nicola Hernandez Vascular SurgeonOrder Date: 08/14/24Order Info: [id number] - CBCDComments: cc copy to Dr. Nicola Hernandez Vascular Surgeon Performed By: #### L 500.4050, L100.0100, L503.6550, L503.6030 ####[facility] [address] [place], [address] RBC (Bld) [#/Vol] 4.33 10*6/uL Normal 4.2-5.4 [facility] Comment on above: Order Comment: Inter face Comments:cc copy to Dr. Nicola Hernandez Vascular SurgeonOrder Date: 08/14/24Order Info: [id number]- - CBCDComments: cc copy to Dr. Nicola Hernandez, Vascular Surgeon Performed By: #### L 500.4050, L100.0100, L503.6550, L503.6030 ####[facility] [address] [place], [address] RDW SD 51.4 fl High 35.1-43.9 [facility] Comment on above: Order Comment: Inter face Comments:cc copy to Dr. Nicola Hernandez Vascular SurgeonOrder Date: 08/14/24Order Info: [id number]- - CBCDComments: cc copy to Dr. Nicola Henrandez Vascular Surgeon Performed By: #### L 500.4050, L100.0100, L503.6550, L503.6030 ####[facility] [address] [place], [address] WBC (Bld) [#/Vol] 7.0 10*3/uL Normal 4.4-11.0 [facility] Comment on above: Order Comment: Inter face Comments:cc copy to Dr. Nicola Hernandez Vascular SurgeonOrder Date: 08/14/24Order Info: [id number] - CBCDComments: cc copy to Dr. Nicola Hernandez Vascular Surgeon Performed By: #### L 500.4050, L100.0100, L503.6550, L503.6030 ####[facility] [address] [place], [address] Comprehensive Metabolic Prof ilon 08-14-2024 Albumin [Mass/Vol] 3.3 g/dL Normal 3.2-5.0 [facility] Comment on above: Order Comment: Inter face Comments:cc copy to Dr. Nicola Hernandez Vascular SurgeonOrder Date: 08/14/24Order Info: [id number] - CMPOrder Info: [id number] - TSHOrder Info: [id number] - IBCOrder Info: [id number] - FERComments: cc copy to Dr. Nicola Hernandez Vascular SurgeonOrder Info: 3024-7 - T4Fcc copy to Dr. W Buttler, Vascular Surgeon Performed By: #### L 500.4050, L100.0100, L503.6550, L503.6030 ####[facility] [address] [place], [address] Albumin/Globulin [Mass ratio] 1.0 {ratio} Normal 0.9-2.4 [facility] Comment on above: Order Comment: Inter face Comments:cc copy to Dr. Nicola Hernandez Vascular SurgeonOrder Date: 08/14/24Order Info: [id number] - CMPOrder Info: [id number] - TSHOrder Info: [id number] - IBCOrder Info: [id number] - FERComments: cc copy to Dr. Nicola Hernandez Vascular SurgeonOrder Info: 3024-7 - T4Fcc copy to Dr. Nicola Hernandez, Vascular Surgeon Performed By: #### L 500.4050, L100.0100, L503.6550, L503.6030 ####[facility] [address] [place], [address] ALK P 128 U/L High 45-117 [facility] Comment on above: Order Comment: Inter face Comments:cc copy to Dr. Nicola Hernandez Vascular SurgeonOrder Date: 08/14/24Order Info: [id number] - CMPOrder Info: 3 - TSHOrder Info: [id number] - IBCOrder Info: [id number] - FERComments: cc copy to Dr. Nicola Hernandez Vascular SurgeonOrder Info: 3024-7 - T4Fcc copy to Dr. Nicola Hernandez, Vascular Surgeon Performed By: #### L 500.4050, L100.0100, L503.6550, L503.6030 ####[facility] [address] [place], [address] ALT [Catalytic activity/Vol] 14 U/L Normal 13-56 [facility] Comment on above: Order Comment: Inter face Comments:cc copy to Dr. Nicola Hernandez Vascular SurgeonOrder Date: 08/14/24Order Info: [id number] - CMPOrder Info: [id number] - TSHOrder Info: [id number] - IBCOrder Info: [id number] - FERComments: cc copy to Dr. Nicola Hernandez Vascular SurgeonOrder Info: 3024-05 - T4Fcc copy to Dr. Nicola Hernandez Vascular Surgeon Performed By: #### L 500.4050, L100.0100, L503.6550, L503.6030 ####[facility] [address] [place], [address] AST [Catalytic activity/Vol] 12 U/L Low 15-37 [facility] Comment on above: Order Comment: Inter face Comments:cc copy to Dr. Nicola Hernandez Vascular SurgeonOrder Date: 08/14/24Order Info: [id number] - CMPOrder Info: [id number] - TSHOrder Info: [id number] - IBCOrder Info: [id number] - FERComments: cc copy to Dr. Nicola Hernandze Vascular SurgeonOrder Info: 3024-05 [address] Nicola Hernandez, Vascular Surgeon Performed By: #### L 500.4050, L100.0100, L503.6550, L503.6030 ####[facility] [address] [place], [address] Bilirubin [Mass/Vol] 0.30 mg/dL Normal 0.20-1.00 [facility] Comment on above: Order Comment: Inter face Comments:cc copy to Dr. Nicola Hernandez Vascular SurgeonOrder Date: 08/14/24Order Info: [id number] - CMPOrder Info: [id number] - TSHOrder Info: [id number] - IBCOrder Info: [id number] - FERComments: cc copy to Dr. Nicola Hernandez Vascular SurgeonOrder Info: [id number] - T4Fcc copy to Dr. Nicola Hernandez, Vascular Surgeon Result Comment: For patients on eltrombopag therapy, use of Dimension [place] TBIL is not recommended. Performed By: #### L 500.4050, L100.0100, L503.6550, L503.6030 ####[facility] [address] [place], [address] BUN/CRE 14.5 RATIO Normal 10-20 [facility] Comment on above: Order Comment: Inter face Comments:cc copy to Dr. Nicola Hernandez Vascular SurgeonOrder Date: 08/14/24Order Info: 86-1 - CMPOrder Info: 6-3 - TSHOrder Info: [id number] - IBCOrder Info: [id number] - FERComments: cc copy to Dr. Nicola Hernandez Vascular SurgeonOrder Info: [id number] - T4Fcc copy to Dr. Nicola Hernandez, Vascular Surgeon Performed By: #### L 500.4050, L100.0100, L503.6550, L503.6030 ####[facility] [address] [place], [address] CA,Total 9.3 mg/dL Normal 8.5-10.1 [facility] Comment on above: Order Comment: Inter face Comments:cc copy to Dr. Nicola Hernandez Vascular SurgeonOrder Date: 08/14/24Order Info: [id number] - CMPOrder Info: 3 - TSHOrder Info: [id number] - IBCOrder Info: [id number] - FERComments: cc copy to Dr. Nicola Hernandez Vascular SurgeonOrder Info: [id number] - T4Fcc copy to Dr. Nicola Hernandez, Vascular Surgeon Performed By: #### L 500.4050, L100.0100, L503.6550, L503.6030 ####[facility] [address] [place], [address] Chloride [Moles/Vol] 107 mmol/L Normal 98-107 [facility] Comment on above: Order Comment: Inter face Comments:cc copy to Dr. Nicola Hernandez Vascular SurgeonOrder Date: 08/14/24Order Info: [id number] - CMPOrder Info: [id number] - TSHOrder Info: [id number] - IBCOrder Info: [id number] - FERComments: cc copy to Dr. Nicola Hernandez Vascular SurgeonOrder Info: [id number] - T4Fcc copy to Dr. Nicola Hernandez, Vascular Surgeon Performed By: #### L 500.4050, L100.0100, L503.6550, L503.6030 ####[facility] [address] [place], [address] CO2 [Moles/Vol] 28.0 mmol/L Normal 21.0-32.0 [facility] Comment on above: Order Comment: Inter face Comments:cc copy to Dr. Nicola Hernandez Vascular SurgeonOrder Date: 08/14/24Order Info: [id number] - CMPOrder Info: [id number] - TSHOrder Info: [id number] - IBCOrder Info: [id number] - FERComments: cc copy to Dr. Nicola Hernandez Vascular SurgeonOrder Info: 3024-7 - T4Fcc copy to Dr. Nicola Hernandez, Vascular Surgeon Performed By: #### L 500.4050, L100.0100, L503.6550, L503.6030 ####[facility] [address] [place], [address] Creatinine [Mass/Vol] 1.10 mg/dL High 0.55-1.02 [facility] Comment on above: Order Comment: Inter face Comments:cc copy to Dr. Nicola Hernandez Vascular SurgeonOrder Date: 08/14/24Order Info: [id number] - CMPOrder Info: [id number] - TSHOrder Info: [id number] - IBCOrder Info: [id number] - FERComments: cc copy to Dr. Nicola Hernandez Vascular SurgeonOrder Info: 3024-7 - T4Fcc copy to Dr. Nicola Hernandez, Vascular Surgeon Result Comment: The validity of the calculated GFR GFRAA in patients over70 years has not been determined. Clinical correlation isessential. Performed By: #### L 500.4050, L100.0100, L503.6550, L503.6030 ####[facility] [address] [place], [address] EST GFR - AA 63 mL/min Normal >60 [facility] Comment on above: Order Comment: Inter face Comments:cc copy to Dr. Nicola Hernandez Vascular SurgeonOrder Date: 08/14/24Order Info: [id number] - CMPOrder Info: 3 - TSHOrder Info: [id number] - IBCOrder Info: [id number] - FERComments: cc copy to Dr. Nicola Hernandez Vascular SurgeonOrder Info: 3024-05 - T4Fcc copy to Dr. Nicola Hernandez, Vascular Surgeon Result Comment: Afri can Honduran GFR Calc Performed By: #### L 500.4050, L100.0100, L503.6550, L503.6030 ####[facility] [address] [place], [address] GAP 5 Normal 5-15 [facility] Comment on above: Order Comment: Inter face Comments:cc copy to Dr. Nicola Hernandez Vascular SurgeonOrder Date: 08/14/24Order Info: [id number] - CMPOrder Info: [id number] - TSHOrder Info: [id number] - IBCOrder Info: [id number] - FERComments: cc copy to Dr. Nicola Hernandez Vascular SurgeonOrder Info: 3024-[address] Nicola Hernandez, Vascular Surgeon Performed By: #### L 500.4050, L100.0100, L503.6550, L503.6030 ####[facility] [address] [place], [address] GFR/1.73 sq M.predicted among non-blacks MDRD (S/P/Bld) [Vol rate/Area] 52 mL/min/{1.73_m2} Low >60 [facility] Comment on above: Order Comment: Inter face Comments:cc copy to Dr. Nicola Hernandez Vascular SurgeonOrder Date: 08/14/24Order Info: [id number] - CMPOrder Info: [id number] - TSHOrder Info: [id number] - IBCOrder Info: [id number] - FERComments: cc copy to Dr. Nicola Hernandez Vascular SurgeonOrder Info: [id number] - T4Fcc copy to Dr. Nicola Hernandez, Vascular Surgeon Result Comment: Non- GFR Calc Performed By: #### L 500.4050, L100.0100, L503.6550, L503.6030 ####[facility] [address] [place], [address] Globulin (S) [Mass/Vol] 3.4 g/dL Normal 2.2-4.2 [facility] Comment on above: Order Comment: Inter face Comments:cc copy to Dr. Nicola Hernandez Vascular SurgeonOrder Date: 08/14/24Order Info: [id number] - CMPOrder Info: 3 - TSHOrder Info: [id number] - IBCOrder Info: [id number] - FERComments: cc copy to Dr. Nicola Hernandez Vascular SurgeonOrder Info: 3024-7 - T4Fcc copy to Dr. Nicola Hernandez, Vascular Surgeon Performed By: #### L 500.4050, L100.0100, L503.6550, L503.6030 ####[facility] [address] [place], [address] Glucose [Mass/Vol] 82 mg/dL Normal 74-106 [facility] Comment on above: Order Comment: Inter face Comments:cc copy to Dr. Nicola Hernandez Vascular SurgeonOrder Date: 08/14/24Order Info: 07- - CMPOrder Info: [id number] - TSHOrder Info: [id number] - IBCOrder Info: [id number] - FERComments: cc copy to Dr. Nicola Hernandez Vascular SurgeonOrder Info: 3024-7 - T4Fcc copy to Dr. Nicola Hernandez, Vascular Surgeon Performed By: #### L 500.4050, L100.0100, L503.6550, L503.6030 ####[facility] [address] [place], [address] Potassium [Moles/Vol] 4.0 mmol/L Normal 3.5-5.1 [facility] Comment on above: Order Comment: Inter face Comments:cc copy to Dr. Nicola Hernandez Vascular SurgeonOrder Date: 08/14/24Order Info: 07-1 - CMPOrder Info: [id number] - TSHOrder Info: [id number] - IBCOrder Info: [id number] - FERComments: cc copy to Dr. Nicola Hernandez Vascular SurgeonOrder Info: [id number] - T4Fcc copy to Dr. Nicola Hernandez, Vascular Surgeon Performed By: #### L 500.4050, L100.0100, L503.6550, L503.6030 ####[facility] [address] [place], [address] Sodium [Moles/Vol] 140 mmol/L Normal 136-145 [facility] Comment on above: Order Comment: Inter face Comments:cc copy to Dr. Nicola Hernandez Vascular SurgeonOrder Date: 08/14/24Order Info: [id number] - CMPOrder Info: [id number] - TSHOrder Info: [id number] - IBCOrder Info: [id number] - FERComments: cc copy to Dr. Nicola Hernandez Vascular SurgeonOrder Info: 3024-[address] Nicola Hernandez, Vascular Surgeon Performed By: #### L 500.4050, L100.0100, L503.6550, L503.6030 ####[facility] [address] [place], [address] T PROT 6.7 g/dL Normal 6.4-8.2 [facility] Comment on above: Order Comment: Inter face Comments:cc copy to Dr. Nicola Hernandez Vascular SurgeonOrder Date: 08/14/24Order Info: [id number] - CMPOrder Info: [id number] - TSHOrder Info: [id number] - IBCOrder Info: [id number] - FERComments: cc copy to Dr. Nicola Hernandez Vascular SurgeonOrder Info: 3024-05 [address] Nicola Hernandez, Vascular Surgeon Performed By: #### L 500.4050, L100.0100, L503.6550, L503.6030 ####[facility] [address] [place], [address] Urea nitrogen [Mass/Vol] 16 mg/dL Normal 7-18 [facility] Comment on above: Order Comment: Inter face Comments:cc copy to Dr. Nicola Hernandez Vascular SurgeonOrder Date: 08/14/24Order Info: [id number] - CMPOrder Info: [id number] - TSHOrder Info: [id number] - IBCOrder Info: [id number] - FERComments: cc copy to Dr. Nicola Hernandez Vascular SurgeonOrder Info: 3024-05 - T4Fcc copy to Dr. Nicola Hernandez Vascular Surgeon Performed By: #### L 500.4050, L100.0100, L503.6550, L503.6030 ####[facility] [address] [place], [address] Ferritinon 08-14-2024 Ferritin [Mass/Vol] 35 ng/mL Normal 8-252 [facility] Comment on above: Order Comment: Inter face Comments:cc copy to Dr. Nicola Hernandez Vascular SurgeonOrder Date: 08/14/24Order Info: [id number] - CMPOrder Info: [id number] - TSHOrder Info: [id number] - IBCOrder Info: [id number] - FERComments: cc copy to Dr. Nicola Hernandez Vascular SurgeonOrder Info: 3024-05 [address] Nicola Hernandez Vascular Surgeon Performed By: #### L 500.4050, L100.0100, L503.6550, L503.6030 ####[facility] [address] [place], [address] Iron+Iron Binding Capacityon 08-14-2024 Iron [Mass/Vol] 31 ug/dL Low 50-170 [facility] Comment on above: Order Comment: Inter face Comments:cc copy to Dr. Nicola Hernandez Vascular SurgeonOrder Date: 08/14/24Order Info: [id number] - CMPOrder Info: [id number] - TSHOrder Info: [id number] - IBCOrder Info: [id number] - FERComments: cc copy to Dr. Nicola Hernandez Vascular SurgeonOrder Info: [id number] - T4Fcc copy to Dr. Nicola Hernandez Vascular Surgeon Performed By: #### L 500.4050, L100.0100, L503.6550, L503.6030 ####[facility] [address] [place], [address] IRON SATURATION 9.1 Low 15.0-55.0 [facility] Comment on above: Order Comment: Inter face Comments:cc copy to Dr. Nicola Hernandez Vascular SurgeonOrder Date: 08/14/24Order Info: 86-1 - CMPOrder Info: 3 - TSHOrder Info: [id number] - IBCOrder Info: [id number] - FERComments: cc copy to Dr. Nicola Hernandez Vascular SurgeonOrder Info: 3027 - T4Fcc copy to Dr. Nicola Hernandez Vascular Surgeon Performed By: #### L 500.4050, L100.0100, L503.6550, L503.6030 ####[facility] [address] [place], [address] TIBC 339 ug/dL Normal 250-450 [facility] Comment on above: Order Comment: Inter face Comments:cc copy to Dr. Nicola Hernandez Vascular SurgeonOrder Date: 08/14/24Order Info: [id number] - CMPOrder Info: [id number] - TSHOrder Info: [id number] - IBCOrder Info: [id number] - FERComments: cc copy to Dr. Nicola Hernandez Vascular SurgeonOrder Info: 3027 - T4Fcc copy to Dr. Nicola Hernandez Vascular Surgeon Performed By: #### L 500.4050, L100.0100, L503.6550, L503.6030 ####[facility] [address] [place], [address] T4 Free Directon 08-14-2024 T4 FREE DIRECT 1.18 ng/dL Normal 0.76-1.46 [facility] Comment on above: Order Comment: Inter face Comments:cc copy to Dr. Nicola Hernandez Vascular SurgeonOrder Date: 08/14/24Order Info: [id number] - CMPOrder Info: 3 - TSHOrder Info: [id number] - IBCOrder Info: [id number] - FERComments: cc copy to Dr. Nicola Hernandez, Vascular SurgeonOrder Info: 3024-7 - T4Fcc copy to Dr. Nicola Hernandez, Vascular Surgeon Performed By: #### L 501.9520, L506.0400 ####[facility] [address] [place], [address] Thyroid Stim Hormone (TSH)on 08-14-2024 TSH 1.650 uIU/mL Normal 0.358-3.74 0 [facility] Comment on above: Order Comment: Inter face Comments:cc copy to Dr. Nicola Hernandez, Vascular SurgeonOrder Date: 08/14/24Order Info: [id number] - CMPOrder Info: [id number] - TSHOrder Info: [id number] - IBCOrder Info: [id number] - FERComments: cc copy to Dr. Nicola Hernandez, Vascular SurgeonOrder Info: 3024-7 - T4Fcc copy to Dr. Nicola Hernandez, Vascular Surgeon Performed By: #### L 501.9520, L506.0400 ####[facility] [address] [place], [address] Celiac Disease Profileon ENDOMYSIAL IGA Negative Normal Negative [facility] Comment on above: Order Comment: N Performed By: #### L 100.0100, L3410.2400, L503.6075, L503.6150, L100.9950, L3100.1850, L503.6550, L3100.3425, L504.2610 ####[facility] [address] [place], [address] tTG IGA <2 Normal 0-3 [facility] Comment on above: Order Comment: N Result Comment: Nega tive 0 - 3 Weak Positive 4 - 10 Positive >10 Tissue Transglutaminase (tTG) has been identified as the endomysial antigen. Studies have demonstr- ated that endomysial IgA antibodies have over 99% specificity for gluten sensitive enteropathy. Performed By: #### L 100.0100, L3410.2400, L503.6075, L503.6150, L100.9950, L3100.1850, L503.6550, L3100.3425, L504.2610 ####[facility] [address] [place], [place], [id number] Haptoglobinon 06-23-2024 HAPTOGLOBIN 243 mg/dL Normal 37-355 [facility] Comment on above: Order Comment: N Result Comment: Perf ormed at: [facility] [address] [id number] Director: Damion Richards PhD, Phone: [phone] Performed By: #### L 100.0100, L3410.2400, L503.6075, L503.6150, L100.9950, L3100.1850, L503.6550, L3100.3425, L504.2610 ####[facility] [address] [place], [place], [id number] CHRISTIANO + Protein Elect, Serumon 06-23-2024 Albumin [Mass/Vol] 3.4 g/dL Normal 2.9-4.4 [facility] Comment on above: Order Comment: N Performed By: #### L 100.0100, L3410.2400, L503.6075, L503.6150, L100.9950, L3100.1850, L503.6550, L3100.3425, L504.2610 ####[facility] [address] [place], [place], [id number] Albumin/Globulin [Mass ratio] 1.4 {ratio} Normal 0.7-1.7 [facility] Comment on above: Order Comment: N Performed By: #### L 100.0100, L3410.2400, L503.6075, L503.6150, L100.9950, L3100.1850, L503.6550, L3100.3425, L504.2610 ####[facility] [address] [place], [address] LJWSX-6-QCJE 0.2 g/dL Normal 0.0-0.4 [facility] Comment on above: Order Comment: N Performed By: #### L 100.0100, L3410.2400, L503.6075, L503.6150, L100.9950, L3100.1850, L503.6550, L3100.3425, L504.2610 ####[facility] [address] [place], [address](563) PUXCB-1-GOOH 0.8 g/dL Normal 0.4-1.0 [facility] Comment on above: Order Comment: N Performed By: #### L 100.0100, L3410.2400, L503.6075, L503.6150, L100.9950, L3100.1850, L503.6550, L3100.3425, L504.2610 ####[facility] [address] [place], [address](636) BETA GLOBULIN 0.9 g/dL Normal 0.7-1.3 [facility] Comment on above: Order Comment: N Performed By: #### L 100.0100, L3410.2400, L503.6075, L503.6150, L100.9950, L3100.1850, L503.6550, L3100.3425, L504.2610 ####[facility] [address] [place], [address](860) GAMMA GLOBULIN 0.7 g/dL Normal 0.4-1.8 [facility] Comment on above: Order Comment: N Performed By: #### L 100.0100, L3410.2400, L503.6075, L503.6150, L100.9950, L3100.1850, L503.6550, L3100.3425, L504.2610 ####[facility] [address] [place], [address](870) Globulin (S) [Mass/Vol] 2.6 g/dL Normal 2.2-3.9 W [facility] Comment on above: Order Comment: N Performed By: #### L 100.0100, L3410.2400, L503.6075, L503.6150, L100.9950, L3100.1850, L503.6550, L3100.3425, L504.2610 ####[facility] [address] [place], [address] CHRISTIANO RESULT,S Comment Normal . [facility] Comment on above: Order Comment: N Result Comment: No m onoclonality detected. Performed By: #### L 100.0100, L3410.2400, L503.6075, L503.6150, L100.9950, L3100.1850, L503.6550, L3100.3425, L504.2610 ####[facility] [address] [place], [address] IMMUNOGLOB A QN 135 mg/dL Normal 87-352 [facility] Comment on above: Order Comment: N Performed By: #### L 100.0100, L3410.2400, L503.6075, L503.6150, L100.9950, L3100.1850, L503.6550, L3100.3425, L504.2610 ####[facility] [address] [place], [address] IMMUNOGLOB G QN 775 mg/dL Normal 586-1602 [facility] Comment on above: Order Comment: N Performed By: #### L 100.0100, L3410.2400, L503.6075, L503.6150, L100.9950, L3100.1850, L503.6550, L3100.3425, L504.2610 ####[facility] [address] [place], [address] IMMUNOGLOB M QN 98 mg/dL Normal 26-217 [facility] Comment on above: Order Comment: N Performed By: #### L 100.0100, L3410.2400, L503.6075, L503.6150, L100.9950, L3100.1850, L503.6550, L3100.3425, L504.2610 ####[facility] [address] [place], [place], [phone] M-Isaac Not Observed Normal Not Observed [facility] Comment on above: Order Comment: N Performed By: #### L 100.0100, L3410.2400, L503.6075, L503.6150, L100.9950, L3100.1850, L503.6550, L3100.3425, L504.2610 ####[facility] [address] [place], [address] NOTE: Comment Normal . [facility] Comment on above: Order Comment: N Result Comment: Prot ein electrophoresis scan will follow via computer,mail, or assembler metal furniture delivery. Performed By: #### L 100.0100, L3410.2400, L503.6075, L503.6150, L100.9950, L3100.1850, L503.6550, L3100.3425, L504.2610 ####[facility] [address] [place], [place], [id number] Protein [Mass/Vol] 6.0 g/dL Normal 6.0-8.5 [facility] Comment on above: Order Comment: N Performed By: #### L 100.0100, L3410.2400, L503.6075, L503.6150, L100.9950, L3100.1850, L503.6550, L3100.3425, L504.2610 ####[facility] [address] [place], [address] CBC W/Diff, Automatedon 08-0 Absolute Lymph 1.20 X10 3/uL Normal 0.83-4.51 [facility] Comment on above: Performed By: #### L 100.0100, L3410.2400, L503.6075, L503.6150, L100.9950, L3100.1850, L503.6550, L3100.3425, L504.2610 ####[facility] [address] [place], [address] Absolute Neut 4.1 X10 3/uL Normal 2.0-7.7 [facility] Comment on above: Performed By: #### L 100.0100, L3410.2400, L503.6075, L503.6150, L100.9950, L3100.1850, L503.6550, L3100.3425, L504.2610 ####[facility] [address] [place], [address] Basophils/100 WBC (Bld) 0.6 % Normal 0-1 W [facility] Comment on above: Performed By: #### L 100.0100, L3410.2400, L503.6075, L503.6150, L100.9950, L3100.1850, L503.6550, L3100.3425, L504.2610 ####[facility] [address] [place], [address] Eosinophils/100 WBC (Bld) 3.7 % Normal 0-5 [facility] Comment on above: Performed By: #### L 100.0100, L3410.2400, L503.6075, L503.6150, L100.9950, L3100.1850, L503.6550, L3100.3425, L504.2610 ####[facility] [address] [place], [address] Erythrocyte distribution width (RBC) [Ratio] 16.5 % High 11.6-14.6 [facility] Comment on above: Performed By: #### L 100.0100, L3410.2400, L503.6075, L503.6150, L100.9950, L3100.1850, L503.6550, L3100.3425, L504.2610 ####[facility] [address] [place], [address] Hematocrit (Bld) [Volume fraction] 36.8 % Low 37-47 [facility] Comment on above: Performed By: #### L 100.0100, L3410.2400, L503.6075, L503.6150, L100.9950, L3100.1850, L503.6550, L3100.3425, L504.2610 ####[facility] [address] [facility] [place], [address]( Hemoglobin (Bld) [Mass/Vol] 11.8 g/dL Low 12.0-15.0 [facility] Comment on above: Performed By: #### L 100.0100, L3410.2400, L503.6075, L503.6150, L100.9950, L3100.1850, L503.6550, L3100.3425, L504.2610 ####[facility] [address] [facility] [place], [address] IG% 0.500 Normal 0.0-0.9 [facility] Comment on above: Result Comment: IG% - Immature Granulocytes (promyelocytes, myelocytes andmetamyelocytes) > 1% indicates that a LEFT SHIFT is Present. Performed By: #### L 100.0100, L3410.2400, L503.6075, L503.6150, L100.9950, L3100.1850, L503.6550, L3100.3425, L504.2610 ####[facility] [address] [place], [address] Lymphocytes/100 WBC (Bld) 19.3 % Normal 19-41 [facility] Comment on above: Performed By: #### L 100.0100, L3410.2400, L503.6075, L503.6150, L100.9950, L3100.1850, L503.6550, L3100.3425, L504.2610 ####[facility] [address] [place], [place], [phone] MCH (RBC) [Entitic mass] 27.4 pg Normal 27.0-32.0 [facility] Comment on above: Performed By: #### L 100.0100, L3410.2400, L503.6075, L503.6150, L100.9950, L3100.1850, L503.6550, L3100.3425, L504.2610 ####[facility] [address] [place], [address](811) MCHC (RBC) [Mass/Vol] 32.1 g/dL Normal 32-36 [facility] Comment on above: Performed By: #### L 100.0100, L3410.2400, L503.6075, L503.6150, L100.9950, L3100.1850, L503.6550, L3100.3425, L504.2610 ####[facility] [address] [place], [address](925) MCV (RBC) [Entitic vol] 85.6 fL Normal 81-99 [address] [facility] Comment on above: Performed By: #### L 100.0100, L3410.2400, L503.6075, L503.6150, L100.9950, L3100.1850, L503.6550, L3100.3425, L504.2610 ####[facility] [address] [place], [address](098 Monocytes/100 WBC (Bld) 9.8 % Normal 0-10 [facility] Comment on above: Performed By: #### L 100.0100, L3410.2400, L503.6075, L503.6150, L100.9950, L3100.1850, L503.6550, L3100.3425, L504.2610 ####[facility] [address] [place], [address] Neutrophils/100 WBC (Bld) 66.1 % Normal 47-70 [facility] Comment on above: Performed By: #### L 100.0100, L3410.2400, L503.6075, L503.6150, L100.9950, L3100.1850, L503.6550, L3100.3425, L504.2610 ####[facility] [address] [place], [address] Nucleated RBC (Bld) [#/Vol] 0 10*3/uL Normal 0-5 [facility] Comment on above: Performed By: #### L 100.0100, L3410.2400, L503.6075, L503.6150, L100.9950, L3100.1850, L503.6550, L3100.3425, L504.2610 ####[facility] [address] [place], [address] Platelet mean volume (Bld) [Entitic vol] 9.4 fL Normal 6.2-12.0 [facility] Comment on above: Performed By: #### L 100.0100, L3410.2400, L503.6075, L503.6150, L100.9950, L3100.1850, L503.6550, L3100.3425, L504.2610 ####[facility] [address] [place], [address] Platelets (Bld) [#/Vol] 154 10*3/uL Normal 150-450 [facility] Comment on above: Performed By: #### L 100.0100, L3410.2400, L503.6075, L503.6150, L100.9950, L3100.1850, L503.6550, L3100.3425, L504.2610 ####[facility] [address] [place], [address] RBC (Bld) [#/Vol] 4.30 10*6/uL Normal 4.2-5.4 [facility] Comment on above: Performed By: #### L 100.0100, L3410.2400, L503.6075, L503.6150, L100.9950, L3100.1850, L503.6550, L3100.3425, L504.2610 ####[facility] [id number] [place], [place], [id number] RDW SD 51.3 fl High 35.1-43.9 [facility] Comment on above: Performed By: #### L 100.0100, L3410.2400, L503.6075, L503.6150, L100.9950, L3100.1850, L503.6550, L3100.3425, L504.2610 ####[facility] [id number] [place], [address] WBC (Bld) [#/Vol] 6.2 10*3/uL Normal 4.4-11.0 [facility] Comment on above: Performed By: #### L 100.0100, L3410.2400, L503.6075, L503.6150, L100.9950, L3100.1850, L503.6550, L3100.3425, L504.2610 ####[facility] [id number] [place], [place], [phone] Ferritinon 06-19-2024 Ferritin [Mass/Vol] 24 ng/mL Normal 8-252 [facility] Comment on above: Order Comment: 1 Performed By: #### L 100.0100, L3410.2400, L503.6075, L503.6150, L100.9950, L3100.1850, L503.6550, L3100.3425, L504.2610 ####[facility] [id number] [place], [place], [address] Gastroenterology Visit Repor ton 06-19-2024 Gastroenterology Visit Report Normal [facility] Ironon 06-19-2024 Iron [Mass/Vol] 44 ug/dL Low 50-170 [facility] Comment on above: Order Comment: 1 Performed By: #### L 100.0100, L3410.2400, L503.6075, L503.6150, L100.9950, L3100.1850, L503.6550, L3100.3425, L504.2610 ####[facility] [id number] [place], [place], [id number] Iron Binding Capacity,Totalo n 06-19-2024 TIBC 317 ug/dL Normal 250-450 [facility] Comment on above: Order Comment: 1 Performed By: #### L 100.0100, L3410.2400, L503.6075, L503.6150, L100.9950, L3100.1850, L503.6550, L3100.3425, L504.2610 ####[facility] [id number] [place], [place], [phone] LDHon 06-19-2024 LDH 193 U/L Normal 84-246 [facility] Comment on above: Order Comment: 1 Performed By: #### L 100.0100, L3410.2400, L503.6075, L503.6150, L100.9950, L3100.1850, L503.6550, L3100.3425, L504.2610 ####[facility] [id number] [place], [address] Retic Panelon 06-19-2024 IM RET FRACTION 6.60 Normal 3.00-15.90 [facility] Comment on above: Performed By: #### L 100.0100, L3410.2400, L503.6075, L503.6150, L100.9950, L3100.1850, L503.6550, L3100.3425, L504.2610 ####[facility] [id number] [place], [address] RET-HE 27.8 pg Low 30-35 [facility] Comment on above: Performed By: #### L 100.0100, L3410.2400, L503.6075, L503.6150, L100.9950, L3100.1850, L503.6550, L3100.3425, L504.2610 ####[facility] [id number] [place], [address] Retic Count 1.25 Normal 0.5-1.5 [facility] Comment on above: Performed By: #### L 100.0100, L3410.2400, L503.6075, L503.6150, L100.9950, L3100.1850, L503.6550, L3100.3425, L504.2610 ####[facility] [id number] [place], [address] Absolute lymphocyte countOrd ered By: Daron Benton on 02-29-2024 Lymphocytes Auto (Unsp spec) [#/Vol] 1.00 10*3/uL 0.83-4.51 [facility] Automated lymphocyte count a s percentage of total leukocytesOrdered By: Daron Benton on 02-29-2024 Lymphocytes/100 WBC Auto (Unsp spec) 20.5 % 19-41 [facility] Basophil percentageOrdered B y: Daron Benton on 02-29-2024 Basophil percentage 10.4 g/dL 12.0-15.0 [facility] Basophil percentage 72 mg/dL 74-106 [facility] Basophil percentage 6.4 g/dL 6.4-8.2 [facility] Basophil percentage 0.30 mg/dL 0.20-1.00 [facility] Basophil percentage 139 mmol/L 136-145 [facility] Basophil percentage 3.9 mmol/L 3.5-5.1 [facility] Basophil percentage 105 mmol/L 98-107 [facility] Basophils (Bld) [#/Vol] 4.9 10*3/uL 4.4-11.0 [facility] Basophils (Bld) [#/Vol] 3.1 10*3/uL 2.0-7.7 [facility] Basophils/100 WBC (Bld) 63.6 % 47-70 W [facility] Basophils/100 WBC (Bld) 8.8 % 0-10 W [facility] Basophils/100 WBC (Bld) 5.1 % 0-5 W [facility] Basophils/100 WBC (Bld) 1.4 % 0-1 W [facility] Blood manual differential co mment interpretation (narrative result)Ordered By: Daron Benton on 02-29-2024 Manual differential comment Jimy (Bld) [Interp] SCANNED [facility] Determination of erythrocyte mean corpuscular volume (MCV)Ordered By: Daron Benton on 02-29-2024 MCV (RBC) [Entitic vol] 84.6 fL 81-99 W [facility] Erythrocyte distribution wid th ratioOrdered By: Daron Benton on 02-29-2024 Erythrocyte distribution width (RBC) [Ratio] 20.3 % 11.6-14.6 [facility] Erythrocyte distribution wid th standard deviationOrdered By: Daron Benton on 02-29-2024 Erythrocyte distribution width (RBC) [Entitic vol] 62.6 fL 35.1-43.9 [facility] Hematocrit Auto (Bld) [Volum e fraction]Ordered By: Daron Benton on 02-29-2024 Hematocrit (Bld) [Volume fraction] 35.7 % 37-47 [facility] Hemoglobin in reticulocytes (mass per reticulocyte)Ordered By: Daron Benton on 02-29-2024 Hemoglobin (Reticulocytes) [Entitic mass] 30.1 pg 30-35 [facility] Immature granulocytes/100 WB C Auto (Bld)Ordered By: Daron Benton on 02-29-2024 Immature granulocytes/100 WBC (Bld) 0.600 % 0.0-0.9 [facility] No Panel InformationOrdered By: Daron Benton on 02-29-2024 24.6 pg 27.0-32.0 [facility] 29.1 g/dL 32-36 [facility] 211 K/mm3 150-450 [facility] 10.0 fl 6.2-12.0 [facility] 0 % 0-5 [facility] 12.20 % 3.00-15.90 [facility] 63 mL/min >60 [facility] 76 mL/min >60 [facility] 13.8 RATIO 10-20 [facility] 3.5 g/dL 2.2-4.2 [facility] 0.8 RATIO 0.9-2.4 [facility] 134 U/L 45-117 [facility] 13 U/L 13-56 [facility] 31.0 mmol/L 21.0-32.0 [facility] 386 pg/mL 211-911 [facility] 292 ng/mL 8-252 [facility] 8.20 ng/mL 3.1-55.4 [facility] RBC Auto (Bld) [#/Vol]Ordere d By: Daron Benton on 02-29-2024 RBC (Bld) [#/Vol] 4.22 10*6/uL 4.2-5.4 [facility] Reticulocytes Auto (Bld) [#/ Vol]Ordered By: Daron Benton on 02-29-2024 Reticulocytes/100 RBC (Bld) 1.50 % 0.5-1.5 [facility] Serum or plasma calcium stefania urement (mass/volume)Ordered By: Daron Benton on 02-29-2024 Calcium [Mass/Vol] 8.8 mg/dL 8.5-10.1 [facility] Serum or plasma creatinine m easurement (mass/volume)Ordered By: Daron Benton on 02-29-2024 Creatinine [Mass/Vol] 0.94 mg/dL 0.55-1.02 [facility] Serum or plasma urea nitroge n measurement (mass/volume)Ordered By: Daron Benton on 02-29-2024 Urea nitrogen [Mass/Vol] 13 mg/dL 7-18 [facility] Thin prep Papanicolaou smear with manual screeningOrdered By: Daron Benton on 02-29-2024 Thin prep Papanicolaou smear with manual screening 2.9 g/dL 3.2-5.0 [facility] Thin prep Papanicolaou smear with manual screening 15 U/L 15-37 [facility] Thin prep Papanicolaou smear with manual screening 3 5-15 [facility] Absolute lymphocyte countOrd ered By: Roman Mckeon on 02-25-2024 Lymphocytes Auto (Unsp spec) [#/Vol] 1.08 10*3/uL 0.83-4.51 [facility] Activated partial thrombopla stin time (aPTT) in platelet poor plasma by coagulation aOrdered By: Daron Cortes on 02-25-2024 aPTT Coag (PPP) [Time] 33.2 s 24.1-36.2 [facility] Automated lymphocyte count a s percentage of total leukocytesOrdered By: Roman Mckeon on 02-25-2024 Lymphocytes/100 WBC Auto (Unsp spec) 16.3 % 19-41 [facility] Basophil percentageOrdered B y: Eva Mortensen on 02-25-2024 Basophil percentage 10.7 g/dL 12.0-15.0 [facility] Basophil percentageOrdered B y: Roman Mckeon on 02-25-2024 Basophil percentage 85 mg/dL 74-106 [facility] Basophil percentage 141 mmol/L 136-145 [facility] Basophil percentage 3.8 mmol/L 3.5-5.1 [facility] Basophil percentage 110 mmol/L 98-107 [facility] Basophils (Bld) [#/Vol] 6.6 10*3/uL 4.4-11.0 [facility] Basophils (Bld) [#/Vol] 4.6 10*3/uL 2.0-7.7 [facility] Basophils/100 WBC (Bld) 68.4 % 47-70 W [facility] Basophils/100 WBC (Bld) 11.3 % 0-10 W [facility] Basophils/100 WBC (Bld) 2.9 % 0-5 W [facility] Basophils/100 WBC (Bld) 0.5 % 0-1 W [facility] Determination of erythrocyte mean corpuscular volume (MCV)Ordered By: Roman Mckeon on 02-25-2024 MCV (RBC) [Entitic vol] 83.5 fL 81-99 W [facility] Erythrocyte distribution wid th ratioOrdered By: Roman Mckeon on 02-25-2024 Erythrocyte distribution width (RBC) [Ratio] 19.6 % 11.6-14.6 [facility] Erythrocyte distribution wid th standard deviationOrdered By: Roman Mckeon on 02-25-2024 Erythrocyte distribution width (RBC) [Entitic vol] 57.3 fL 35.1-43.9 [facility] Hematocrit Auto (Bld) [Volum e fraction]Ordered By: Roman Mckeon on 02-25-2024 Hematocrit (Bld) [Volume fraction] 34.3 % 37-47 [facility] Immature granulocytes/100 WB C Auto (Bld)Ordered By: Roman Mckeon on 02-25-2024 Immature granulocytes/100 WBC (Bld) 0.600 % 0.0-0.9 [facility] No Panel InformationOrdered By: Roman Mckeon on 02-25-2024 25.1 pg 27.0-32.0 [facility] 30.0 g/dL 32-36 [facility] 205 K/mm3 150-450 [facility] 9.6 fl 6.2-12.0 [facility] 0 % 0-5 [facility] 70 mL/min >60 [facility] 85 mL/min >60 [facility] 55.02 ml/min [facility] 14.1 RATIO 10-20 [facility] 26.0 mmol/L 21.0-32.0 [facility] No Panel InformationOrdered By: Daron Cortes on 02-25-2024 13.8 SECONDS 11.7-14.9 [facility] 1.1 [facility] RBC Auto (Bld) [#/Vol]Ordere d By: Roman Mckeon on 02-25-2024 RBC (Bld) [#/Vol] 4.11 10*6/uL 4.2-5.4 [facility] Serum or plasma calcium stefania urement (mass/volume)Ordered By: Roman Mckeon on 02-25-2024 Calcium [Mass/Vol] 8.5 mg/dL 8.5-10.1 [facility] Serum or plasma creatinine m easurement (mass/volume)Ordered By: Roman Mckeon on 02-25-2024 Creatinine [Mass/Vol] 0.85 mg/dL 0.55-1.02 [facility] Serum or plasma thyroid stim ulating hormone (TSH) measurement (units/volume)Ordered By: Daron Cortes on 02-25-2024 TSH Qn 3.07 uIU/mL 0.358-3.74 [facility] Serum or plasma urea nitroge n measurement (mass/volume)Ordered By: Roman Mckeon on 02-25-2024 Urea nitrogen [Mass/Vol] 12 mg/dL 7-18 [facility] Thin prep Papanicolaou smear with manual screeningOrdered By: Roman Mckeon on 02-25-2024 Thin prep Papanicolaou smear with manual screening 5 5-15 [facility] Basophil percentageOrdered B y: Roman Mckeon on 02-23-2024 Basophil percentage 2.6 mg/dL 2.5-4.9 [facility] No Panel InformationOrdered By: Roman Mckeon on 02-23-2024 28 pg/mL 3.0-54.0 [facility] 2.0 mg/dL 1.6-2.6 [facility] Bacteria identified Respirat ory culture Nom (Unsp spec)Ordered By: Roman Mckeon on 02-22-2024 Microbial respiratory culture Presumptive C albicans [facility] Basophil percentageOrdered B y: Roman Mckeon on 02-22-2024 Basophil percentage 5.2 g/dL 6.4-8.2 [facility] Basophil percentage 0.20 mg/dL 0.20-1.00 [facility] Gram stain for investigation of transfusion reactionOrdered By: Roman Mckeon on 02-22-2024 Microscopic observation Gram stain Nom (Unsp spec) [facility] No Panel InformationOrdered By: Roman Mckeon on 02-22-2024 3.0 g/dL 2.2-4.2 [facility] 0.7 RATIO 0.9-2.4 [facility] 133 U/L 45-117 [facility] 8 U/L 13-56 [facility] Thin prep Papanicolaou smear with manual screeningOrdered By: Roman Mckeon on 02-22-2024 Thin prep Papanicolaou smear with manual screening 2.2 g/dL 3.2-5.0 [facility] Thin prep Papanicolaou smear with manual screening 9 U/L 15-37 [facility] Absolute lymphocyte countOrd ered By: Jeffyaura Blocko on 02-19-2024 Lymphocytes Auto (Unsp spec) [#/Vol] 1.17 10*3/uL 0.83-4.51 [facility] Automated lymphocyte count a s percentage of total leukocytesOrdered By: Jeffy Willoughby on 02-19-2024 Lymphocytes/100 WBC Auto (Unsp spec) 14.5 % 19-41 [facility] Basophil percentageOrdered B y: Jeffy Willoughby on 02-19-2024 Basophil percentage 1.0 mmol/L 0.4-2.0 [facility] Basophil percentage 6.6 g/dL 12.0-15.0 [facility] Basophil percentage 128 mg/dL 74-106 [facility] Basophil percentage 137 mmol/L 136-145 [facility] Basophil percentage 3.8 mmol/L 3.5-5.1 [facility] Basophil percentage 106 mmol/L 98-107 [facility] Basophils (Bld) [#/Vol] 8.1 10*3/uL 4.4-11.0 [facility] Basophils (Bld) [#/Vol] 5.9 10*3/uL 2.0-7.7 [facility] Basophils/100 WBC (Bld) 73.5 % 47-70 W [facility] Basophils/100 WBC (Bld) 8.5 % 0-10 W [facility] Basophils/100 WBC (Bld) 2.6 % 0-5 W [facility] Basophils/100 WBC (Bld) 0.4 % 0-1 W [facility] Determination of erythrocyte mean corpuscular volume (MCV)Ordered By: Jeffy Willoughby on 02-19-2024 MCV (RBC) [Entitic vol] 77.2 fL 81-99 W [facility] Erythrocyte distribution wid th ratioOrdered By: Jeffy Willoughby on 02-19-2024 Erythrocyte distribution width (RBC) [Ratio] 17.1 % 11.6-14.6 [facility] Erythrocyte distribution wid th standard deviationOrdered By: Jeffyaura Willoughby on 02-19-2024 Erythrocyte distribution width (RBC) [Entitic vol] 48.0 fL 35.1-43.9 [facility] Hematocrit Auto (Bld) [Volum e fraction]Ordered By: Jeffy Willoughby on 02-19-2024 Hematocrit (Bld) [Volume fraction] 22.4 % 37-47 [facility] Immature granulocytes/100 WB C Auto (Bld)Ordered By: Jeffy Willoughby on 02-19-2024 Immature granulocytes/100 WBC (Bld) 0.500 % 0.0-0.9 [facility] Lower GI hemoglobin IA Ql (S tl)Ordered By: Jeffy Willoughby on 02-19-2024 Stool gastrointestinal hemoglobin detection by immunologic method Positive [facility] No Panel InformationOrdered By: Jeffy Willoughby on 02-19-2024 15 pg/mL 3.0-54.0 [facility] No growth in 5 days. [facility] 22.8 pg 27.0-32.0 [facility] 29.5 g/dL 32-36 [facility] 193 K/mm3 150-450 [facility] 10.0 fl 6.2-12.0 [facility] 0 % 0-5 [facility] 58 mL/min >60 [facility] 71 mL/min >60 [facility] 49.70 ml/min [facility] 21.0 RATIO 10-20 [facility] 25.0 mmol/L 21.0-32.0 [facility] RBC Auto (Bld) [#/Vol]Ordere d By: Jeffyaura Willoughby on 02-19-2024 RBC (Bld) [#/Vol] 2.90 10*6/uL 4.2-5.4 [facility] Serum or plasma calcium stefania urement (mass/volume)Ordered By: Jeffyaura Willoughby on 02-19-2024 Calcium [Mass/Vol] 8.3 mg/dL 8.5-10.1 [facility] Serum or plasma creatinine m easurement (mass/volume)Ordered By: Jeffyaura Willoughby on 02-19-2024 Creatinine [Mass/Vol] 1.00 mg/dL 0.55-1.02 [facility] Serum or plasma urea nitroge n measurement (mass/volume)Ordered By: Jeffyaura Willoughby on 02-19-2024 Urea nitrogen [Mass/Vol] 21 mg/dL 7-18 [facility] Thin prep Papanicolaou smear with manual screeningOrdered By: Jeffy Willoughby on 02-19-2024 Thin prep Papanicolaou smear with manual screening 128 mg/dL 74-106 [facility] Thin prep Papanicolaou smear with manual screening 6 5-15 [facility] Urine Legionella pneumophila antigen detectionOrdered By: Roman Mckeon on 02-19-2024 L. pneumophila Ag Ql (U) [facility] Absolute lymphocyte countOrd ered By: Daron Benton on 01-18-2024 Lymphocytes Auto (Unsp spec) [#/Vol] 1.27 10*3/uL 0.83-4.51 [facility] Automated lymphocyte count a s percentage of total leukocytesOrdered By: Daron Benton on 01-18-2024 Lymphocytes/100 WBC Auto (Unsp spec) 11.7 % 19-41 [facility] Basophil percentageOrdered B y: Daron Benton on 01-18-2024 Basophil percentage 8.9 g/dL 12.0-15.0 [facility] Basophil percentage 96 mg/dL 74-106 [facility] Basophil percentage 6.8 g/dL 6.4-8.2 [facility] Basophil percentage 0.40 mg/dL 0.20-1.00 [facility] Basophil percentage 139 mmol/L 136-145 [facility] Basophil percentage 4.1 mmol/L 3.5-5.1 [facility] Basophil percentage 106 mmol/L 98-107 [facility] Basophils (Bld) [#/Vol] 10.9 10*3/uL 4.4-11.0 [facility] Basophils (Bld) [#/Vol] 8.1 10*3/uL 2.0-7.7 [facility] Basophils/100 WBC (Bld) 74.9 % 47-70 W [facility] Basophils/100 WBC (Bld) 8.6 % 0-10 W [facility] Basophils/100 WBC (Bld) 2.0 % 0-5 W [facility] Basophils/100 WBC (Bld) 0.8 % 0-1 W [facility] Determination of erythrocyte mean corpuscular volume (MCV)Ordered By: Daron Benton on 01-18-2024 MCV (RBC) [Entitic vol] 88.1 fL 81-99 W [facility] Erythrocyte distribution wid th ratioOrdered By: Daron Benton on 01-18-2024 Erythrocyte distribution width (RBC) [Ratio] 16.0 % 11.6-14.6 [facility] Erythrocyte distribution wid th standard deviationOrdered By: Daron Benton on 01-18-2024 Erythrocyte distribution width (RBC) [Entitic vol] 51.1 fL 35.1-43.9 [facility] Hematocrit Auto (Bld) [Volum e fraction]Ordered By: Daron Benton on 01-18-2024 Hematocrit (Bld) [Volume fraction] 30.4 % 37-47 [facility] Hemoglobin in reticulocytes (mass per reticulocyte)Ordered By: Daron Benton on 01-18-2024 Hemoglobin (Reticulocytes) [Entitic mass] 25.6 pg 30-35 [facility] Immature granulocytes/100 WB C Auto (Bld)Ordered By: Daron Benton on 01-18-2024 Immature granulocytes/100 WBC (Bld) 2.000 % 0.0-0.9 [facility] No Panel InformationOrdered By: Daron Benton on 01-18-2024 25.8 pg 27.0-32.0 [facility] 29.3 g/dL 32-36 [facility] 449 K/mm3 150-450 [facility] 9.0 fl 6.2-12.0 [facility] 0 % 0-5 [facility] 34.00 % 3.00-15.90 [facility] 55 mL/min >60 [facility] 66 mL/min >60 [facility] 18.9 RATIO 10-20 [facility] 4.0 g/dL 2.2-4.2 [facility] 0.7 RATIO 0.9-2.4 [facility] 161 U/L 45-117 [facility] 13 U/L 13-56 [facility] 28.0 mmol/L 21.0-32.0 [facility] 2.2 pg/mL 2.18-3.98 [facility] 808 pg/mL 211-911 [facility] 82 ng/mL 8-252 [facility] 9.40 ng/mL 3.1-55.4 [facility] RBC Auto (Bld) [#/Vol]Ordere d By: Daron Benton on 01-18-2024 RBC (Bld) [#/Vol] 3.45 10*6/uL 4.2-5.4 [facility] Reticulocytes Auto (Bld) [#/ Vol]Ordered By: Daron Benton on 01-18-2024 Reticulocytes/100 RBC (Bld) 3.70 % 0.5-1.5 [facility] Serum or plasma calcium stefania urement (mass/volume)Ordered By: Daron Benton on 01-18-2024 Calcium [Mass/Vol] 8.7 mg/dL 8.5-10.1 [facility] Serum or plasma creatinine m easurement (mass/volume)Ordered By: Daron Benton on 01-18-2024 Creatinine [Mass/Vol] 1.06 mg/dL 0.55-1.02 [facility] Serum or plasma thyroid stim ulating hormone (TSH) measurement (units/volume)Ordered By: Daron Benton on 01-18-2024 TSH Qn 3.92 uIU/mL 0.358-3.74 [facility] Serum or plasma urea nitroge n measurement (mass/volume)Ordered By: Daron Benton on 01-18-2024 Urea nitrogen [Mass/Vol] 20 mg/dL 7-18 [facility] Thin prep Papanicolaou smear with manual screeningOrdered By: Daron Benton on 01-18-2024 Thin prep Papanicolaou smear with manual screening 2.8 g/dL 3.2-5.0 [facility] Thin prep Papanicolaou smear with manual screening 12 U/L 15-37 [facility] Thin prep Papanicolaou smear with manual screening 5 5-15 [facility] [facility] Thin prep Papanicolaou smear with manual screening 1.39 ng/dL 0.76-1.46 [facility] Absolute lymphocyte countOrd ered By: Jori Garcia on 01-11-2024 Lymphocytes Auto (Unsp spec) [#/Vol] 0.76 10*3/uL 0.83-4.51 [facility] Automated lymphocyte count a s percentage of total leukocytesOrdered By: Jori Garcia on 01-11-2024 Lymphocytes/100 WBC Auto (Unsp spec) 5.2 % 19-41 [facility] Basophil percentageOrdered B y: Jori Garcia on 01-11-2024 Basophil percentage 1.3 mmol/L 0.4-2.0 [facility] Basophil percentage 0 SEEN /hpf 0-5 [facility] Basophil percentage 10.2 g/dL 12.0-15.0 [facility] Basophil percentage 159 mg/dL 74-106 [facility] Basophil percentage 137 mmol/L 136-145 [facility] Basophil percentage 3.9 mmol/L 3.5-5.1 [facility] Basophil percentage 104 mmol/L 98-107 [facility] Basophils (Bld) [#/Vol] 14.6 10*3/uL 4.4-11.0 [facility] Basophils (Bld) [#/Vol] 12.4 10*3/uL 2.0-7.7 [facility] Basophils/100 WBC (Bld) 85.1 % 47-70 W [facility] Basophils/100 WBC (Bld) 7.7 % 0-10 W [facility] Basophils/100 WBC (Bld) 0.2 % 0-5 W [facility] Basophils/100 WBC (Bld) 0.5 % 0-1 W [facility] Bilirubin Test strip Ql (U)O rdered By: Jori Garcia on 01-11-2024 Bilirubin Ql (U) Negative Negative [facility] Determination of erythrocyte mean corpuscular volume (MCV)Ordered By: Jori Garcia on 01-11-2024 MCV (RBC) [Entitic vol] 86.4 fL 81-99 W [facility] Erythrocyte distribution wid th ratioOrdered By: Jori Garcia on 01-11-2024 Erythrocyte distribution width (RBC) [Ratio] 15.2 % 11.6-14.6 [facility] Erythrocyte distribution wid th standard deviationOrdered By: Jori Garcia on 01-11-2024 Erythrocyte distribution width (RBC) [Entitic vol] 48.4 fL 35.1-43.9 [facility] Hematocrit Auto (Bld) [Volum e fraction]Ordered By: Jori Garcia on 01-11-2024 Hematocrit (Bld) [Volume fraction] 32.4 % 37-47 [facility] Immature granulocytes/100 WB C Auto (Bld)Ordered By: Jori Garcia on 01-11-2024 Immature granulocytes/100 WBC (Bld) 1.300 % 0.0-0.9 [facility] Ketones Test strip Ql (U)Ord ered By: Jori Garcia on 01-11-2024 Ketones Ql (U) Negative Negative [facility] Mucus LM Ql (Urine sed)Order ed By: Jori Garcia on 01-11-2024 Mucus Ql (Urine sed) 0 SEEN /hpf [facility] Nitrite Test strip Ql (U)Ord ered By: Jori Garcia on 01-11-2024 Nitrite Ql (U) Negative Negative [facility] No Panel InformationOrdered By: Jori Garcia on 01-11-2024 17 pg/mL 3.0-54.0 [facility] 0 SEEN /hpf 0-5 [facility] 27.2 pg 27.0-32.0 [facility] 31.5 g/dL 32-36 [facility] 308 K/mm3 150-450 [facility] 9.2 fl 6.2-12.0 [facility] 0 % 0-5 [facility] 54 mL/min >60 [facility] 65 mL/min >60 [facility] 43.08 ml/min [facility] 16.8 RATIO 10-20 [facility] 2.1 mg/dL 1.6-2.6 [facility] 26.0 mmol/L 21.0-32.0 [facility] Protein Test strip Ql (U)Ord ered By: Jori Garcia on 01-11-2024 Protein Ql (U) Negative Negative [facility] RBC Auto (Bld) [#/Vol]Ordere d By: Jori Garcia on 01-11-2024 RBC (Bld) [#/Vol] 3.75 10*6/uL 4.2-5.4 [facility] Serum or plasma calcium stefania urement (mass/volume)Ordered By: Jori Garcia on 01-11-2024 Calcium [Mass/Vol] 9.1 mg/dL 8.5-10.1 [facility] Serum or plasma creatinine m easurement (mass/volume)Ordered By: Jori Garcia on 01-11-2024 Creatinine [Mass/Vol] 1.07 mg/dL 0.55-1.02 [facility] Serum or plasma urea nitroge n measurement (mass/volume)Ordered By: Jori Garcia on 01-11-2024 Urea nitrogen [Mass/Vol] 18 mg/dL 7-18 [facility] Squamous epithelial cells de tection in urine sediment by light microscopyOrdered By: Jori Garcia on 01-11-2024 Epithelial cells.squamous LM Ql (Urine sed) 0 SEEN /hpf 5-10 [facility] Thin prep Papanicolaou smear with manual screeningOrdered By: Jori Garcia on 01-11-2024 Thin prep Papanicolaou smear with manual screening 7 5-15 [facility] Urine blood detectionOrdered By: Jori Garcia on 01-11-2024 RBC Ql (U) Negative Negative [facility] Urine clarityOrdered By: Kasandra Garcia on 01-11-2024 Clarity (U) Clear Clear [facility] Urine color determinationOrd ered By: Jori Garcia on 01-11-2024 Color (U) Yellow Yellow [facility] Urine glucose detectionOrder ed By: Jori Garcia on 01-11-2024 Glucose Ql (U) Normal mg/dl Normal [facility] Urine leukocyte esterase det ection by dipstickOrdered By: Jori Garcia on 01-11-2024 Leukocyte esterase Test strip Ql (U) 25 /ul Negative [facility] Urine pHOrdered By: Jori Garcia on 01-11-2024 pH (U) 7.0 [pH] 5.0 - 8.0 [facility] Urine sediment bacteria coun t by microscopy (number/high power field)Ordered By: Jori Garcia on 01-11-2024 Bacteria LM.HPF (Urine sed) [#/Area] 0 /[HPF] None Seen [facility] Urine specific gravity measu rementOrdered By: Jori Garcia on 01-11-2024 Specific gravity (U) [Rel density] 1.010 1.002-1.03 0 [facility] Urine urobilinogen measureme ntOrdered By: Jori Garcia on 01-11-2024 Urobilinogen Ql (U) Normal mg/dl Normal [facility] Basophil percentageOrdered B y: Betsey Lindquist on 12-21-2023 Basophil percentage 9.9 g/dL 12.0-15.0 [facility] Hematocrit Auto (Bld) [Volum e fraction]Ordered By: Betsey Lindquist on 12-21-2023 Hematocrit (Bld) [Volume fraction] 32.2 % 37-47 [facility] Absolute lymphocyte countOrd ered By: Sachin Murillo on 12-07-2023 Lymphocytes Auto (Unsp spec) [#/Vol] 1.31 10*3/uL 0.83-4.51 [facility] Automated lymphocyte count a s percentage of total leukocytesOrdered By: Sachin Murillo on 12-07-2023 Lymphocytes/100 WBC Auto (Unsp spec) 17.9 % 19-41 [facility] Basophil percentageOrdered B y: Sachin Murillo on 12-07-2023 Basophil percentage 9.0 g/dL 12.0-15.0 [facility] Basophil percentage 94 mg/dL 74-106 [facility] Basophil percentage 142 mmol/L 136-145 [facility] Basophil percentage 3.6 mmol/L 3.5-5.1 [facility] Basophil percentage 111 mmol/L 98-107 [facility] Basophils (Bld) [#/Vol] 7.3 10*3/uL 4.4-11.0 [facility] Basophils (Bld) [#/Vol] 5.2 10*3/uL 2.0-7.7 [facility] Basophils/100 WBC (Bld) 71.0 % 47-70 W [facility] Basophils/100 WBC (Bld) 9.8 % 0-10 W [facility] Basophils/100 WBC (Bld) 0.1 % 0-1 W [facility] Determination of erythrocyte mean corpuscular volume (MCV)Ordered By: Sachin Murillo on 12-07-2023 MCV (RBC) [Entitic vol] 90.7 fL 81-99 W [facility] Erythrocyte distribution wid th ratioOrdered By: Sachin Murillo on 12-07-2023 Erythrocyte distribution width (RBC) [Ratio] 15.6 % 11.6-14.6 [facility] Erythrocyte distribution wid th standard deviationOrdered By: Sachin Murillo on 12-07-2023 Erythrocyte distribution width (RBC) [Entitic vol] 51.9 fL 35.1-43.9 [facility] Hematocrit Auto (Bld) [Volum e fraction]Ordered By: Sachin Murillo on 12-07-2023 Hematocrit (Bld) [Volume fraction] 27.4 % 37-47 [facility] Immature granulocytes/100 WB C Auto (Bld)Ordered By: Sachin Murillo on 12-07-2023 Immature granulocytes/100 WBC (Bld) 1.100 % 0.0-0.9 [facility] No Panel InformationOrdered By: Sachin Murillo on 12-07-2023 29.8 pg 27.0-32.0 [facility] 32.8 g/dL 32-36 [facility] 216 K/mm3 150-450 [facility] 0 % 0-5 [facility] 58 mL/min >60 [facility] 70 mL/min >60 [facility] 46.47 ml/min [facility] 29.7 RATIO 10-20 [facility] 26.0 mmol/L 21.0-32.0 [facility] Platelet mean volume Jordan-Ec ker (Bld) [Entitic vol]Ordered By: Sachin Murillo on 12-07-2023 Platelet mean volume (Bld) [Entitic vol] 9.5 fL 6.2-12.0 [facility] RBC Auto (Bld) [#/Vol]Ordere d By: Sachin Murillo on 12-07-2023 RBC (Bld) [#/Vol] 3.02 10*6/uL 4.2-5.4 [facility] Serum or plasma calcium stefania urement (mass/volume)Ordered By: Sachin Murillo on 12-07-2023 Calcium [Mass/Vol] 7.7 mg/dL 8.5-10.1 [facility] Serum or plasma creatinine m easurement (mass/volume)Ordered By: Sachin Murillo on 12-07-2023 Creatinine [Mass/Vol] 1.01 mg/dL 0.55-1.02 [facility] Serum or plasma urea nitroge n measurement (mass/volume)Ordered By: Sachin Murillo on 12-07-2023 Urea nitrogen [Mass/Vol] 30 mg/dL 7-18 [facility] Thin prep Papanicolaou smear with manual screeningOrdered By: Sachin Murillo on 12-07-2023 Thin prep Papanicolaou smear with manual screening 5 5-15 [facility] Iron measurement (mass/mass) Ordered By: Sachin Murillo on 12-06-2023 Iron (Unsp spec) [Mass/Mass] 67 ug/dL 50-170 [facility] No Panel InformationOrdered By: Sachin Murillo on 12-06-2023 203 ug/dL 250-450 [facility] 96 ng/mL 8-252 [facility] Serum or plasma iron saturat ion measurement (mass fraction)Ordered By: Sachin Murillo on 12-06-2023 Iron saturation [Mass fraction] 33.0 % 15.0-55.0 [facility] Basophil percentageOrdered B y: Jorge Hurtado on 12-04-2023 Basophil percentage 13.0 umol/L 11-32 [facility] Basophil percentage 6.4 g/dL 6.4-8.2 [facility] Basophil percentage 0.20 mg/dL 0.20-1.00 [facility] Blood manual differential co mment interpretation (narrative result)Ordered By: Sachin Murillo on 12-04-2023 Manual differential comment Jimy (Bld) [Interp] SCANNED [facility] Direct bilirubinOrdered By: Jorge Hurtado on 12-04-2023 Bilirubin.direct [Mass/Vol] 0.11 mg/dL 0.00-0.30 [facility] No Panel InformationOrdered By: Jorge Hurtado on 12-04-2023 3.7 g/dL 2.2-4.2 [facility] 127 U/L 45-117 [facility] 15 U/L 13-56 [facility] 1.65 uIU/mL 0.358-3.74 [facility] Serum or plasma albumin stefania urement (mass/volume)Ordered By: Jorge Hurtado on 12-04-2023 Albumin [Mass/Vol] 2.7 g/dL 3.2-5.0 [facility] Thin prep Papanicolaou smear with manual screeningOrdered By: Jorge Hurtado on 12-04-2023 Thin prep Papanicolaou smear with manual screening 17 U/L 15-37 [facility] Assessment of wrist artery p atency prior to arterial punctureOrdered By: Sachin Murillo on 12-03-2023 Arterial patency Wrist artery --pre arterial puncture Positive [facility] Base excessOrdered By: Jarred Murillo on 12-03-2023 Base excess Calc (BldV) [Moles/Vol] -3 mmol/L -2-2 [facility] Basophil percentageOrdered B y: Sachin Murillo on 12-03-2023 Basophil percentage 21.5 mmol/L 22-26 [facility] Basophils/100 WBC (Bld) 97 % 95-99 W [facility] Basophil percentageOrdered B y: Roman Mckeon on 12-03-2023 Basophil percentage 3.0 mg/dL 2.5-4.9 [facility] CO2 (BldA) [Partial pressure ]Ordered By: Sachin Murillo on 12-03-2023 CO2 (Bld) [Partial pressure] 34.8 mm[Hg] 35-45 [facility] Glucose Glucometer (dC) [M ass/Vol]Ordered By: Sachin Murillo on 12-03-2023 Glucose [Mass/Vol] 175 mg/dL 74-106 [facility] Measurement, pHOrdered By: Carlos Murillo on 12-03-2023 pH (Unsp spec) 7.40 [pH] 7.35-7.45 [facility] No Panel InformationOrdered By: Sachin Murillo on 12-03-2023 ART [facility] L Radial [facility] Not entered [facility] Cannula [facility] 1.0 [facility] 23 mmol/L [facility] No Panel InformationOrdered By: Roman Mckeon on 12-03-2023 2.6 mg/dL 1.6-2.6 [facility] Oxygen (BldA) [Partial press ure]Ordered By: Sachin Murillo on 12-03-2023 Oxygen (Bld) [Partial pressure] 93 mmHG 75-100 [facility] Absolute lymphocyte countOrd ered By: Gabriella Simpson on 12-02-2023 Lymphocytes Auto (Unsp spec) [#/Vol] 1.89 10*3/uL 0.83-4.51 [facility] Basophil percentageOrdered B y: Gabriella Simpson on 12-02-2023 Basophil percentage 0 SEEN /hpf 0-5 [facility] Basophil percentage 109 mg/dL 74-106 [facility] Basophil percentage 140 mmol/L 136-145 [facility] Basophil percentage 3.7 mmol/L 3.5-5.1 [facility] Basophil percentage 107 mmol/L 98-107 [facility] Basophils (Bld) [#/Vol] 6.6 10*3/uL 4.4-11.0 [facility] Basophils (Bld) [#/Vol] 3.8 10*3/uL 2.0-7.7 [facility] Basophils/100 WBC (Bld) 56.3 % 47-70 W [facility] Basophils/100 WBC (Bld) 0.9 % 0-5 W [facility] Basophils/100 WBC (Bld) 0.8 % 0-1 W [facility] Bilirubin Test strip Ql (U)O rdered By: Gabriella Simpson on 12-02-2023 Bilirubin Ql (U) Negative Negative [facility] Blood erythrocytes count (nu mber/volume)Ordered By: Gabriella Simpson on 12-02-2023 RBC (Bld) [#/Vol] 4.21 10*6/uL 4.2-5.4 [facility] Blood hemoglobin measurement (mass/volume)Ordered By: Gabriella Simpson on 12-02-2023 Hemoglobin (Bld) [Mass/Vol] 12.5 g/dL 12.0-15.0 [facility] Blood lymphocytes/100 leukoc ytesOrdered By: Gabriella Simpson on 12-02-2023 Lymphocytes/100 WBC (Bld) 28.5 % 19-41 [facility] Blood monocytes/100 leukocyt esOrdered By: Gabriella Simpson on 12-02-2023 Monocytes/100 WBC (Bld) 12.7 % 0-10 W [facility] Blood platelet mean volumeOr dered By: Gabriella Simpson on 12-02-2023 Platelet mean volume (Bld) [Entitic vol] 9.1 fL 6.2-12.0 [facility] Culture, urineOrdered By: Edgar Mckeon on 12-02-2023 Bacteria identified Cx Nom (U) Culture exhibits no growth. [facility] Bacteria identified Cx Nom (U) Culture exhibits no growth. [facility] Determination of erythrocyte mean corpuscular volume (MCV)Ordered By: Gabriella Simpson on 12-02-2023 MCV (RBC) [Entitic vol] 89.1 fL 81-99 W [facility] Hematocrit Auto (Bld) [Volum e fraction]Ordered By: Gabriella Simpson on 12-02-2023 Hematocrit (Bld) [Volume fraction] 37.5 % 37-47 [facility] Ketones Test strip Ql (U)Ord ered By: Gabriella Simpson on 12-02-2023 Ketones Ql (U) Negative Negative [facility] MCHC Auto (RBC) [Mass/Vol]Or dered By: Gabriella Simpson on 12-02-2023 MCHC (RBC) [Mass/Vol] 33.3 g/dL 32-36 [facility] Mucus LM Ql (Urine sed)Order ed By: Gabriella Simpson on 12-02-2023 Mucus Ql (Urine sed) 0 SEEN /hpf [facility] Nitrite Test strip Ql (U)Ord ered By: Gabriella Simpson on 12-02-2023 Nitrite Ql (U) Negative Negative [facility] No Panel InformationOrdered By: Roman Mckeon on 12-02-2023 No growth in 5 days. [facility] No growth in 5 days. [facility] No Panel InformationOrdered By: Gabriella Simpson on 12-02-2023 29.7 pg 27.0-32.0 [facility] 15.5 % 11.6-14.6 [facility] 50.4 fl 35.1-43.9 [facility] 0.800 % 0.0-0.9 [facility] 0 % 0-5 [facility] 51 mL/min >60 [facility] 61 mL/min >60 [facility] 41.54 ml/min [facility] 14.2 RATIO 10-20 [facility] 26 U/L 26-192 [facility] 25.0 mmol/L 21.0-32.0 [facility] Platelets bldOrdered By: Ene Simpson on 12-02-2023 Platelets (Bld) [#/Vol] 281 10*3/uL 150-450 [facility] Protein Test strip Ql (U)Ord ered By: Gabriella Simpson on 12-02-2023 Protein Ql (U) 15 mg/dl Negative [facility] Serum or plasma calcium stefania urement (mass/volume)Ordered By: Gabriella Simpson on 12-02-2023 Calcium [Mass/Vol] 8.8 mg/dL 8.5-10.1 [facility] Serum or plasma creatinine m easurement (mass/volume)Ordered By: Gabriella Simpson on 12-02-2023 Creatinine [Mass/Vol] 1.13 mg/dL 0.55-1.02 [facility] Serum or plasma urea nitroge n measurement (mass/volume)Ordered By: Gabriella Simpson on 12-02-2023 Urea nitrogen [Mass/Vol] 16 mg/dL 7-18 [facility] Squamous epithelial cells de tection in urine sediment by light microscopyOrdered By: Gabriella Simpson on 12-02-2023 Epithelial cells.squamous LM Ql (Urine sed) 0 SEEN /hpf 5-10 [facility] Thin prep Papanicolaou smear with manual screeningOrdered By: Gabriella Simpson on 12-02-2023 Thin prep Papanicolaou smear with manual screening 8 5-15 [facility] Urine blood detectionOrdered By: Gabriella Simpson on 12-02-2023 RBC Ql (U) Negative Negative [facility] RBC Ql (U) 0 SEEN /hpf 0-5 [facility] Urine clarityOrdered By: Ene Simpson on 12-02-2023 Clarity (U) Clear Clear [facility] Urine color determinationOrd ered By: Gabriella Simpson on 12-02-2023 Color (U) Yellow Yellow [facility] Urine glucose detectionOrder ed By: Gabriella Simpson on 12-02-2023 Glucose Ql (U) Normal mg/dl Normal [facility] Urine leukocyte esterase det ection by dipstickOrdered By: Gabriella Simpson on 12-02-2023 Leukocyte esterase Test strip Ql (U) 25 /ul Negative [facility] Urine pHOrdered By: Gabriella peoples on 12-02-2023 pH (U) 6.5 [pH] 5.0 - 8.0 [facility] Urine sediment bacteria coun t by microscopy (number/high power field)Ordered By: Gabriella Simpson on 12-02-2023 Bacteria LM.HPF (Urine sed) [#/Area] 0 /[HPF] None Seen [facility] Urine specific gravity measu rementOrdered By: Gabriella Simpson on 12-02-2023 Specific gravity (U) [Rel density] 1.015 1.002-1.03 0 [facility] Urobilinogen Auto test strip Ql (U)Ordered By: Gabriella Simpson on 12-02-2023 Urobilinogen Ql (U) Normal mg/dl Normal [facility] Absolute lymphocyte countOrd ered By: Ramírez Onofre on 11-27-2023 Lymphocytes Auto (Unsp spec) [#/Vol] 1.75 10*3/uL 0.83-4.51 [facility] Basophil percentageOrdered B y: Ramírez Onofre on 11-27-2023 Basophil percentage 106 mg/dL 74-106 [facility] Basophil percentage 140 mmol/L 136-145 [facility] Basophil percentage 3.7 mmol/L 3.5-5.1 [facility] Basophil percentage 108 mmol/L 98-107 [facility] Basophils (Bld) [#/Vol] 10.4 10*3/uL 4.4-11.0 [facility] Basophils (Bld) [#/Vol] 7.5 10*3/uL 2.0-7.7 [facility] Basophils/100 WBC (Bld) 0.4 % 0-1 W [facility] Basophils/100 WBC (Bld) 71.7 % 47-70 W [facility] Chloride [Moles/Vol] 108 mmol/L 98-107 [facility] Eosinophils/100 WBC (Bld) 0.4 % 0-5 [facility] Glucose [Mass/Vol] 106 mg/dL 74-106 [facility] Comment on above: Fasting Glucose resu lt from 100 to 125 mg/dL suggests IMPAIRED HOMEOSTASIS per A.D.A. criteria. Neutrophils (Bld) [#/Vol] 7.5 10*3/uL 2.0-7.7 [facility] Neutrophils/100 WBC (Bld) 71.7 % 47-70 [facility] Potassium [Moles/Vol] 3.7 mmol/L 3.5-5.1 [facility] Sodium [Moles/Vol] 140 mmol/L 136-145 [facility] WBC (Bld) [#/Vol] 10.4 10*3/uL 4.4-11.0 [facility] Blood erythrocytes count (nu mber/volume)Ordered By: Ramírez Onofre on 11-27-2023 RBC (Bld) [#/Vol] 3.89 10*6/uL 4.2-5.4 [facility] Blood hemoglobin measurement (mass/volume)Ordered By: Ramírez Onofre on 11-27-2023 Hemoglobin (Bld) [Mass/Vol] 11.6 g/dL 12.0-15.0 [facility] Blood lymphocytes/100 leukoc ytesOrdered By: Ramírez Onofre on 11-27-2023 Lymphocytes/100 WBC (Bld) 16.8 % 19-41 [facility] Blood monocytes/100 leukocyt esOrdered By: Ramírez Onofre on 11-27-2023 Monocytes/100 WBC (Bld) 9.9 % 0-10 [facility] Blood platelet mean volumeOr dered By: Ramírez Onofre on 11-27-2023 Platelet mean volume (Bld) [Entitic vol] 9.0 fL 6.2-12.0 [facility] Determination of erythrocyte mean corpuscular volume (MCV)Ordered By: aRmírez Onofre on 11-27-2023 MCV (RBC) [Entitic vol] 87.9 fL 81-99 [facility] Hematocrit Auto (Bld) [Volum e fraction]Ordered By: Ramírez Onofre on 11-27-2023 Hematocrit (Bld) [Volume fraction] 34.2 % 37-47 [facility] INR in Blood by Coagulation assayOrdered By: Ramírez Onofre on 11-27-2023 INR Coag (Bld) [Relative time] 1.0 {INR} [facility] Laboratory - Chemistry and C hemistry - challengeOrdered By: Ramírez Onofre on 11-27-2023 CO2 [Moles/Vol] 30.0 mmol/L 21.0-32.0 [facility] Urea nitrogen/Creatinine [Mass ratio] 12.8 mg/mg 10-20 [facility] Laboratory - CoagulationOrde red By: Ramírez Onofre on 11-27-2023 aPTT Coag (Bld) [Time] 27.8 s 24.1-36.2 [facility] PT Coag (PPP) [Time] 13.0 s 11.7-14.9 [facility] Laboratory - Hematology and Cell countsOrdered By: Ramírez Onofre on 11-27-2023 Erythrocyte distribution width (RBC) [Entitic vol] 48.7 fL 35.1-43.9 [facility] Erythrocyte distribution width (RBC) [Ratio] 15.3 % 11.6-14.6 [facility] Immature granulocytes/100 WBC (Bld) 0.800 % 0.0-0.9 [facility] Comment on above: IG% - Immature Granu locytes (promyelocytes, myelocytes and metamyelocytes) > 1% indicates that a LEFT SHIFT is Present. MCH (RBC) [Entitic mass] 29.8 pg 27.0-32.0 [facility] Nucleated RBC/100 WBC (Bld) [Ratio] 0 % 0-5 [facility] MCHC Auto (RBC) [Mass/Vol]Or dered By: Ramírez Onofre on 11-27-2023 MCHC (RBC) [Mass/Vol] 33.9 g/dL 32-36 [facility] Comment on above: Delta: 31.9 on 11/26-0 No Panel InformationOrdered By: Ramírez Onofre on 11-27-2023 Estimated Creatinine Clearance Calc 41.86 ml/min [facility] Estimated GFR (MDRD) Amer 64 mL/min >60 [facility] Comment on above: GFR Calc Estimated GFR (MDRD) Non-Af Amer 53 mL/min >60 [facility] Comment on above: Non- GFR Calc Troponin I High Sensitivity 10 pg/mL 3.0-54.0 [facility] Comment on above: Please Note: New Kim t Units and Gender Specific Reference Ranges. For more information see Policy Stat Procedure [place] High Sensitivity Troponin (TNIH) and attachments. 29.8 pg 27.0-32.0 [facility] 15.3 % 11.6-14.6 [facility] 48.7 fl 35.1-43.9 [facility] 0.800 % 0.0-0.9 [facility] 0 % 0-5 [facility] 13.0 SECONDS 11.7-14.9 [facility] 27.8 Seconds 24.1-36.2 [facility] 53 mL/min >60 [facility] 64 mL/min >60 [facility] 41.86 ml/min [facility] 12.8 RATIO 10-20 [facility] 10 pg/mL 3.0-54.0 [facility] 30.0 mmol/L 21.0-32.0 [facility] Platelets bldOrdered By: Rmoeo Onofre on 11-27-2023 Platelets (Bld) [#/Vol] 232 10*3/uL 150-450 [facility] Serum or plasma calcium stefania urement (mass/volume)Ordered By: Ramírez Onofre on 11-27-2023 Calcium [Mass/Vol] 8.7 mg/dL 8.5-10.1 [facility] Serum or plasma creatinine m easurement (mass/volume)Ordered By: Ramírez Onofre on 11-27-2023 Creatinine [Mass/Vol] 1.09 mg/dL 0.55-1.02 [facility] Comment on above: The validity of the calculated GFR & GFRAA in patients over 70 years has not been determined. Clinical correlation is essential. Serum or plasma urea nitroge n measurement (mass/volume)Ordered By: Ramírez Onofre on 11-27-2023 Urea nitrogen [Mass/Vol] 14 mg/dL 7-18 [facility] Thin prep Papanicolaou smear with manual screeningOrdered By: Ramírez Onofre on 11-27-2023 Thin prep Papanicolaou smear with manual screening 2 5-15 [facility] Absolute lymphocyte countOrd ered By: Justice Cid on 11-26-2023 Lymphocytes Auto (Unsp spec) [#/Vol] 1.87 10*3/uL 0.83-4.51 [facility] Basophil percentageOrdered B y: Justice Cid on 11-26-2023 Basophil percentage 120 mg/dL 74-106 [facility] Basophil percentage 142 mmol/L 136-145 [facility] Basophil percentage 4.2 mmol/L 3.5-5.1 [facility] Basophil percentage 108 mmol/L 98-107 [facility] Basophils (Bld) [#/Vol] 9.7 10*3/uL 4.4-11.0 [facility] Basophils (Bld) [#/Vol] 6.8 10*3/uL 2.0-7.7 [facility] Basophils/100 WBC (Bld) 0.5 % 0-1 W [facility] Basophils/100 WBC (Bld) 69.4 % 47-70 W [facility] Basophils/100 WBC (Bld) 0.4 % 0-5 W [facility] Chloride [Moles/Vol] 108 mmol/L 98-107 [facility] Eosinophils/100 WBC (Bld) 0.4 % 0-5 [facility] Glucose [Mass/Vol] 120 mg/dL 74-106 [facility] Comment on above: Fasting Glucose resu lt from 100 to 125 mg/dL suggests IMPAIRED HOMEOSTASIS per A.D.A. criteria. Neutrophils (Bld) [#/Vol] 6.8 10*3/uL 2.0-7.7 [facility] Neutrophils/100 WBC (Bld) 69.4 % 47-70 [facility] Potassium [Moles/Vol] 4.2 mmol/L 3.5-5.1 [facility] Sodium [Moles/Vol] 142 mmol/L 136-145 [facility] WBC (Bld) [#/Vol] 9.7 10*3/uL 4.4-11.0 [facility] Blood erythrocytes count (nu mber/volume)Ordered By: Justice Cid on 11-26-2023 RBC (Bld) [#/Vol] 3.84 10*6/uL 4.2-5.4 [facility] Blood hemoglobin measurement (mass/volume)Ordered By: Justice Cid on 11-26-2023 Hemoglobin (Bld) [Mass/Vol] 10.9 g/dL 12.0-15.0 [facility] Blood lymphocytes/100 leukoc ytesOrdered By: Justice Cid on 11-26-2023 Lymphocytes/100 WBC (Bld) 19.2 % 19-41 [facility] Blood monocytes/100 leukocyt esOrdered By: Justice Cid on 11-26-2023 Monocytes/100 WBC (Bld) 9.7 % 0-10 W [facility] Blood platelet mean volumeOr dered By: Justice Cid on 11-26-2023 Platelet mean volume (Bld) [Entitic vol] 8.9 fL 6.2-12.0 [facility] Determination of erythrocyte mean corpuscular volume (MCV)Ordered By: Justice Cid on 11-26-2023 MCV (RBC) [Entitic vol] 89.1 fL 81-99 W [facility] Hematocrit Auto (Bld) [Volum e fraction]Ordered By: Justice Cid on 11-26-2023 Hematocrit (Bld) [Volume fraction] 34.2 % 37-47 [facility] Laboratory - Chemistry and C hemistry - challengeOrdered By: Justice Cid on 11-26-2023 CO2 [Moles/Vol] 31.0 mmol/L 21.0-32.0 [facility] Urea nitrogen/Creatinine [Mass ratio] 13.8 mg/mg 10-20 [facility] Laboratory - Hematology and Cell countsOrdered By: Justice Cid on 11-26-2023 Erythrocyte distribution width (RBC) [Entitic vol] 49.2 fL 35.1-43.9 [facility] Erythrocyte distribution width (RBC) [Ratio] 15.4 % 11.6-14.6 [facility] Immature granulocytes/100 WBC (Bld) 0.800 % 0.0-0.9 [facility] Comment on above: IG% - Immature Granu locytes (promyelocytes, myelocytes and metamyelocytes) > 1% indicates that a LEFT SHIFT is Present. MCH (RBC) [Entitic mass] 28.4 pg 27.0-32.0 [facility] Nucleated RBC/100 WBC (Bld) [Ratio] 0 % 0-5 [facility] MCHC Auto (RBC) [Mass/Vol]Or dered By: Justice Cid on 11-26-2023 MCHC (RBC) [Mass/Vol] 31.9 g/dL 32-36 [facility] No Panel InformationOrdered By: Justice Cid on 11-26-2023 Estimated Creatinine Clearance Calc 39.99 ml/min [facility] Estimated GFR (MDRD) Amer 60 mL/min >60 [facility] Comment on above: GFR Calc Estimated GFR (MDRD) Non-Af Amer 49 mL/min >60 [facility] Comment on above: Non- GFR Calc Troponin I High Sensitivity 10 pg/mL 3.0-54.0 [facility] Comment on above: Please Note: New Kim t Units and Gender Specific Reference Ranges. For more information see Policy Stat Procedure [place] High Sensitivity Troponin (TNIH) and attachments. 28.4 pg 27.0-32.0 [facility] 15.4 % 11.6-14.6 [facility] 49.2 fl 35.1-43.9 [facility] 0.800 % 0.0-0.9 [facility] 0 % 0-5 [facility] 49 mL/min >60 [facility] 60 mL/min >60 [facility] 39.99 ml/min [facility] 13.8 RATIO 10-20 [facility] 10 pg/mL 3.0-54.0 [facility] 31.0 mmol/L 21.0-32.0 [facility] Platelets bldOrdered By: Yeny Cid on 11-26-2023 Platelets (Bld) [#/Vol] 265 10*3/uL 150-450 [facility] Serum or plasma calcium stefania urement (mass/volume)Ordered By: Justice Cid on 11-26-2023 Calcium [Mass/Vol] 8.2 mg/dL 8.5-10.1 [facility] Serum or plasma creatinine m easurement (mass/volume)Ordered By: Justice Cid on 11-26-2023 Creatinine [Mass/Vol] 1.16 mg/dL 0.55-1.02 [facility] Comment on above: The validity of the calculated GFR & GFRAA in patients over 70 years has not been determined. Clinical correlation is essential. Serum or plasma urea nitroge n measurement (mass/volume)Ordered By: Justice Cid on 11-26-2023 Urea nitrogen [Mass/Vol] 16 mg/dL 7-18 [facility] Thin prep Papanicolaou smear with manual screeningOrdered By: Justice Cid on 11-26-2023 Thin prep Papanicolaou smear with manual screening 3 5-15 [facility] Absolute lymphocyte countOrd ered By: Sachin Murillo on 11-21-2023 Lymphocytes Auto (Unsp spec) [#/Vol] 0.67 10*3/uL 0.83-4.51 [facility] Basophil percentageOrdered B y: Sachin Murillo on 11-21-2023 Basophils (Bld) [#/Vol] 4.7 10*3/uL 4.4-11.0 [facility] Basophils (Bld) [#/Vol] 2.9 10*3/uL 2.0-7.7 [facility] Basophils/100 WBC (Bld) 0.6 % 0-1 W [facility] Basophils/100 WBC (Bld) 62.0 % 47-70 W [facility] Basophils/100 WBC (Bld) 0.9 % 0-5 W [facility] Eosinophils/100 WBC (Bld) 0.9 % 0-5 [facility] Neutrophils (Bld) [#/Vol] 2.9 10*3/uL 2.0-7.7 [facility] Neutrophils/100 WBC (Bld) 62.0 % 47-70 [facility] WBC (Bld) [#/Vol] 4.7 10*3/uL 4.4-11.0 [facility] Blood erythrocytes count (nu mber/volume)Ordered By: Sachin Murillo on 11-21-2023 RBC (Bld) [#/Vol] 3.54 10*6/uL 4.2-5.4 [facility] Blood hemoglobin measurement (mass/volume)Ordered By: Sachin Murillo on 11-21-2023 Hemoglobin (Bld) [Mass/Vol] 10.2 g/dL 12.0-15.0 [facility] Blood lymphocytes/100 leukoc ytesOrdered By: Sachin Murillo on 11-21-2023 Lymphocytes/100 WBC (Bld) 14.3 % 19-41 [facility] Blood monocytes/100 leukocyt esOrdered By: Sachin Murillo on 11-21-2023 Monocytes/100 WBC (Bld) 18.8 % 0-10 W [facility] Blood platelet mean volumeOr dered By: Sachin Murillo on 11-21-2023 Platelet mean volume (Bld) [Entitic vol] 9.7 fL 6.2-12.0 [facility] Determination of erythrocyte mean corpuscular volume (MCV)Ordered By: Sachin Murillo on 11-21-2023 MCV (RBC) [Entitic vol] 87.0 fL 81-99 W [facility] Hematocrit Auto (Bld) [Volum e fraction]Ordered By: Sachin Murillo on 11-21-2023 Hematocrit (Bld) [Volume fraction] 30.8 % 37-47 [facility] Laboratory - Hematology and Cell countsOrdered By: Sachin Murillo on 11-21-2023 Erythrocyte distribution width (RBC) [Entitic vol] 48.1 fL 35.1-43.9 [facility] Erythrocyte distribution width (RBC) [Ratio] 15.0 % 11.6-14.6 [facility] Immature granulocytes/100 WBC (Bld) 3.400 % 0.0-0.9 [facility] Comment on above: IG% - Immature Granu locytes (promyelocytes, myelocytes and metamyelocytes) > 1% indicates that a LEFT SHIFT is Present. MCH (RBC) [Entitic mass] 28.8 pg 27.0-32.0 [facility] Nucleated RBC/100 WBC (Bld) [Ratio] 0 % 0-5 [facility] MCHC Auto (RBC) [Mass/Vol]Or dered By: Sachin Murillo on 11-21-2023 MCHC (RBC) [Mass/Vol] 33.1 g/dL 32-36 [facility] No Panel InformationOrdered By: Sachin Murillo on 11-21-2023 28.8 pg 27.0-32.0 [facility] 15.0 % 11.6-14.6 [facility] 48.1 fl 35.1-43.9 [facility] 3.400 % 0.0-0.9 [facility] 0 % 0-5 [facility] Platelets bldOrdered By: Ciro Murillo on 11-21-2023 Platelets (Bld) [#/Vol] 141 10*3/uL 150-450 [facility] Basophil percentageOrdered B y: Sachin Murillo on 11-20-2023 Basophil percentage 94 mg/dL 74-106 [facility] Basophil percentage 137 mmol/L 136-145 [facility] Basophil percentage 3.4 mmol/L 3.5-5.1 [facility] Basophil percentage 106 mmol/L 98-107 [facility] Chloride [Moles/Vol] 106 mmol/L 98-107 [facility] Glucose [Mass/Vol] 94 mg/dL 74-106 [facility] Potassium [Moles/Vol] 3.4 mmol/L 3.5-5.1 [facility] Sodium [Moles/Vol] 137 mmol/L 136-145 [facility] Blood manual differential co mment interpretation (narrative result)Ordered By: Sachin Murillo on 11-20-2023 Manual differential comment Jimy (Bld) [Interp] COMMENT [facility] Comment on above: LYMPHOPENIA. Laboratory - Chemistry and C hemistry - challengeOrdered By: Sachin Murillo on 11-20-2023 CO2 [Moles/Vol] 21.0 mmol/L 21.0-32.0 [facility] Urea nitrogen/Creatinine [Mass ratio] 11.5 mg/mg 10-20 [facility] No Panel InformationOrdered By: Sachin Murillo on 11-20-2023 Estimated Creatinine Clearance Calc 53.47 ml/min [facility] Estimated GFR (MDRD) Amer 83 mL/min >60 [facility] Comment on above: GFR Calc Estimated GFR (MDRD) Non-Af Amer 69 mL/min >60 [facility] Comment on above: Non- GFR Calc 69 mL/min >60 [facility] 83 mL/min >60 [facility] 53.47 ml/min [facility] 11.5 RATIO 10-20 [facility] 21.0 mmol/L 21.0-32.0 [facility] No Panel InformationOrdered By: Roman Hewitt on 11-20-2023 Troponin I High Sensitivity 26 pg/mL 3.0-54.0 [facility] Comment on above: Please Note: New Kim t Units and Gender Specific Reference Ranges. For more information see Policy Stat Procedure [place] High Sensitivity Troponin (TNIH) and attachments. 26 pg/mL 3.0-54.0 [facility] Serum or plasma calcium stefania urement (mass/volume)Ordered By: Sachin Murillo on 11-20-2023 Calcium [Mass/Vol] 8.0 mg/dL 8.5-10.1 [facility] Serum or plasma creatinine m easurement (mass/volume)Ordered By: Sachin Murillo on 11-20-2023 Creatinine [Mass/Vol] 0.87 mg/dL 0.55-1.02 [facility] Comment on above: The validity of the calculated GFR & GFRAA in patients over 70 years has not been determined. Clinical correlation is essential. Serum or plasma urea nitroge n measurement (mass/volume)Ordered By: Sachin Murillo on 11-20-2023 Urea nitrogen [Mass/Vol] 10 mg/dL 7-18 [facility] Thin prep Papanicolaou smear with manual screeningOrdered By: Sachin Murillo on 11-20-2023 Thin prep Papanicolaou smear with manual screening 10 5-15 [facility] Basophil percentageOrdered B y: Sommer White on 11-19-2023 Basophil percentage 5.5 g/dL 6.4-8.2 [facility] Basophil percentage 0.50 mg/dL 0.20-1.00 [facility] Basophil percentage 116 mg/dL <199 [facility] Bilirubin [Mass/Vol] 0.50 mg/dL 0.20-1.00 [facility] Comment on above: For patients on eltr ombopag therapy, use of Dimension [place] TBIL is not recommended. Cholesterol [Mass/Vol] 116 mg/dL <200 [facility] Comment on above: <200 mg/dL Desirable 200-240 mg/dL Borderline >240 mg/dL High Risk Protein [Mass/Vol] 5.5 g/dL 6.4-8.2 [facility] Triglyceride [Mass/Vol] 116 mg/dL <199 [facility] Comment on above: The drugs N-Acetylcy steine and Metamizole may falsely depress this assay.Serum Triglycerides Reference Interval Normal <150 mg/dL Borderline high 150 - 199 mg/dL High 200 - 499 mg/dL Very High > or = 500 mg/dL Laboratory - Chemistry and C hemistry - challengeOrdered By: Sommer Resendiz on 11-19-2023 ALP [Catalytic activity/Vol] 79 U/L 45- [facility] ALT [Catalytic activity/Vol] 16 U/L [facility] Free T4 [Mass/Vol] 1.66 ng/dL 0.76-1.46 [facility] Globulin (S) [Mass/Vol] 2.9 g/dL 2.2-4.2 [facility] No Panel InformationOrdered By: Sommer Resendiz on 11-19-2023 Thyroid Stimulating Hormone (TSH) 1.42 uIU/mL 0.358-3.74 [facility] 2.9 g/dL 2.2-4.2 [facility] 79 U/L [facility] 16 U/L [facility] 1.42 uIU/mL 0.358-3.74 [facility] 1.66 ng/dL 0.76-1.46 [facility] Serum or plasma albumin stefania urement (mass/volume)Ordered By: Sommer Resendiz on 11-19-2023 Albumin [Mass/Vol] 2.6 g/dL 3.2-5.0 [facility] Serum or plasma albumin/glob ulin mass ratioOrdered By: Sommer Resendiz 11-19-2023 Albumin/Globulin [Mass ratio] 0.9 {ratio} 0.9-2.4 [facility] Serum or plasma cholesterol in HDL measurement (mass/volume)Ordered By: Sommer Resendiz on 11-19-2023 Cholesterol in HDL [Mass/Vol] 30 mg/dL >40 [facility] Comment on above: The drugs N-Acetylcy steine and Metamizole may falsely depress this assay. Reference Range HDL <40 mg/dL Low HDL Cholesterol HDL >or= 60 mg/dL High HDL Cholesterol Serum or plasma cholesterol in VLDL measurement (mass/volume)Ordered By: Sommer Resendiz on 11-19-2023 Cholesterol in VLDL [Mass/Vol] 23 mg/dL 5-40 [facility] Serum or plasma low density lipoprotein (LDL) cholesterol measurement (mass/volume)Ordered By: Sommer Resendiz on 11-19-2023 Cholesterol in LDL [Mass/Vol] 63 mg/dL 0-130 [facility] Thin prep Papanicolaou smear with manual screeningOrdered By: Sommer Martín on 11-19-2023 Thin prep Papanicolaou smear with manual screening 17 U/L 15-37 [facility] Absolute lymphocyte countOrd ered By: Michele Kebede on 11-18-2023 Lymphocytes Auto (Unsp spec) [#/Vol] 1.07 10*3/uL 0.83-4.51 [facility] Basophil percentageOrdered B y: Michele Kebede on 11-18-2023 Basophil percentage 0-5 SEEN /hpf 0-5 [facility] Basophils/100 WBC (Bld) 0.4 % 0-1 [facility] Bilirubin [Mass/Vol] 0.40 mg/dL 0.20-1.00 [facility] Comment on above: For patients on eltr ombopag therapy, use of Dimension [place] TBIL is not recommended. Chloride [Moles/Vol] 110 mmol/L 98-107 [facility] Eosinophils/100 WBC (Bld) 0.2 % 0-5 [facility] Glucose [Mass/Vol] 116 mg/dL 74-106 [facility] Comment on above: Fasting Glucose resu lt from 100 to 125 mg/dL suggests IMPAIRED HOMEOSTASIS per A.D.A. criteria. Neutrophils (Bld) [#/Vol] 3.7 10*3/uL 2.0-7.7 [facility] Neutrophils/100 WBC (Bld) 66.4 % 47-70 [facility] Potassium [Moles/Vol] 3.5 mmol/L 3.5-5.1 [facility] Protein [Mass/Vol] 6.5 g/dL 6.4-8.2 [facility] Sodium [Moles/Vol] 140 mmol/L 136-145 [facility] WBC (Bld) [#/Vol] 5.5 10*3/uL 4.4-11.0 [facility] Bilirubin Test strip Ql (U)O rdered By: Michele Kebede on 11-18-2023 Bilirubin Ql (U) Negative Negative [facility] Blood erythrocytes count (nu mber/volume)Ordered By: Michele Kebede on 11-18-2023 RBC (Bld) [#/Vol] 4.56 10*6/uL 4.2-5.4 [facility] Blood hemoglobin measurement (mass/volume)Ordered By: Michele Kebede on 11-18-2023 Hemoglobin (Bld) [Mass/Vol] 12.9 g/dL 12.0-15.0 [facility] Blood lymphocytes/100 leukoc ytesOrdered By: Michele Kebede on 11-18-2023 Lymphocytes/100 WBC (Bld) 19.4 % 19-41 [facility] Blood monocytes/100 leukocyt esOrdered By: Michele Kebede on 11-18-2023 Monocytes/100 WBC (Bld) 12.9 % 0-10 [facility] Blood platelet mean volumeOr dered By: Michele Kebede on 11-18-2023 Platelet mean volume (Bld) [Entitic vol] 10.3 fL 6.2-12.0 [facility] Determination of erythrocyte mean corpuscular volume (MCV)Ordered By: Michele Kebede on 11-18-2023 MCV (RBC) [Entitic vol] 85.7 fL 81-99 [facility] Hematocrit Auto (Bld) [Volum e fraction]Ordered By: Michele Kebede on 11-18-2023 Hematocrit (Bld) [Volume fraction] 39.1 % 37-47 [facility] Ketones Test strip Ql (U)Ord ered By: Michele Kebede on 11-18-2023 Ketones Ql (U) 5 mg/dl Negative [facility] Laboratory - Chemistry and C hemistry - challengeOrdered By: Michele Kebede on 11-18-2023 ALP [Catalytic activity/Vol] 93 U/L 45-117 [facility] ALT [Catalytic activity/Vol] 18 U/L 13-56 [facility] CO2 [Moles/Vol] 22.0 mmol/L 21.0-32.0 [facility] Globulin (S) [Mass/Vol] 3.4 g/dL 2.2-4.2 [facility] Urea nitrogen/Creatinine [Mass ratio] 12.2 mg/mg 10-20 [facility] Laboratory - Chemistry and C hemistry - challengeOrdered By: Sommer Resendiz on 11-18-2023 Magnesium [Mass/Vol] 1.8 mg/dL 1.6-2.6 [facility] Laboratory - Hematology and Cell countsOrdered By: Michele Kebede on 11-18-2023 Erythrocyte distribution width (RBC) [Entitic vol] 46.5 fL 35.1-43.9 [facility] Erythrocyte distribution width (RBC) [Ratio] 14.8 % 11.6-14.6 [facility] Immature granulocytes/100 WBC (Bld) 0.700 % 0.0-0.9 [facility] Comment on above: IG% - Immature Granu locytes (promyelocytes, myelocytes and metamyelocytes) > 1% indicates that a LEFT SHIFT is Present. MCH (RBC) [Entitic mass] 28.3 pg 27.0-32.0 [facility] Nucleated RBC/100 WBC (Bld) [Ratio] 0 % 0-5 [facility] MCHC Auto (RBC) [Mass/Vol]Or dered By: Michele Kebede on 11-18-2023 MCHC (RBC) [Mass/Vol] 33.0 g/dL 32-36 [facility] Mucus LM Ql (Urine sed)Order ed By: Michele Kebede on 11-18-2023 Mucus Ql (Urine sed) 0 SEEN /hpf [facility] Nitrite Test strip Ql (U)Ord ered By: Michele Kebede on 11-18-2023 Nitrite Ql (U) Negative Negative [facility] No Panel InformationOrdered By: Michele Kebede on 11-18-2023 Estimated Creatinine Clearance Calc 48.26 ml/min [facility] Estimated GFR (MDRD) Amer 72 mL/min >60 [facility] Comment on above: GFR Calc Estimated GFR (MDRD) Non-Af Amer 59 mL/min >60 [facility] Comment on above: Non- GFR Calc Troponin I High Sensitivity 60 pg/mL 3.0-54.0 [facility] Comment on above: Please Note: New Kim t Units and Gender Specific Reference Ranges. For more information see Policy Stat Procedure [place] High Sensitivity Troponin (TNIH) and attachments. No Panel InformationOrdered By: Sommer Resendiz on 11-18-2023 1.8 mg/dL 1.6-2.6 [facility] Platelets bldOrdered By: Randee sarah Delio on 11-18-2023 Platelets (Bld) [#/Vol] 123 10*3/uL 150-450 [facility] Protein Test strip Ql (U)Ord ered By: Michele Kebede on 11-18-2023 Protein Ql (U) Negative Negative [facility] Serum or plasma albumin stefania urement (mass/volume)Ordered By: Michele Kebede on 11-18-2023 Albumin [Mass/Vol] 3.1 g/dL 3.2-5.0 [facility] Serum or plasma albumin/glob ulin mass ratioOrdered By: Michele Kebede on 11-18-2023 Albumin/Globulin [Mass ratio] 0.9 {ratio} 0.9-2.4 [facility] Serum or plasma calcium stefania urement (mass/volume)Ordered By: Michele Kebede on 11-18-2023 Calcium [Mass/Vol] 8.0 mg/dL 8.5-10.1 [facility] Serum or plasma creatinine m easurement (mass/volume)Ordered By: Michele Kebede on 11-18-2023 Creatinine [Mass/Vol] 0.99 mg/dL 0.55-1.02 [facility] Comment on above: The validity of the calculated GFR & GFRAA in patients over 70 years has not been determined. Clinical correlation is essential. Serum or plasma urea nitroge n measurement (mass/volume)Ordered By: Michele Kebede on 11-18-2023 Urea nitrogen [Mass/Vol] 12 mg/dL 7-18 [facility] Squamous epithelial cells de tection in urine sediment by light microscopyOrdered By: Michele Kebede on 11-18-2023 Epithelial cells.squamous LM Ql (Urine sed) 5-10 SEEN /hpf 5-10 [facility] Stool gastrointestinal hemog lobin detection by immunologic methodOrdered By: Michele Kebede on 11-18-2023 Lower GI hemoglobin IA Ql (Stl) [facility] Lower GI hemoglobin IA Ql (Stl) [facility] Thin prep Papanicolaou smear with manual screeningOrdered By: Michele Kebede on 11-18-2023 Thin prep Papanicolaou smear with manual screening 17 U/L 15-37 [facility] Thin prep Papanicolaou smear with manual screening 8 5-15 [facility] Urine blood detectionOrdered By: Michele Kebede on 11-18-2023 RBC Ql (U) 25 /ul Negative [facility] RBC Ql (U) 0-5 SEEN /hpf 0-5 [facility] Urine clarityOrdered By: Randee Kebede on 11-18-2023 Clarity (U) Clear Clear [facility] Urine color determinationOrd ered By: Michele Kebede on 11-18-2023 Color (U) Yellow Yellow [facility] Urine glucose detectionOrder ed By: Michele Kebede on 11-18-2023 Glucose Ql (U) Normal mg/dl Normal [facility] Urine leukocyte esterase det ection by dipstickOrdered By: Michele Kebede on 11-18-2023 Leukocyte esterase Test strip Ql (U) 25 /ul Negative [facility] Urine pHOrdered By: Michele gutierrez on 11-18-2023 pH (U) 6.0 [pH] 5.0 - 8.0 [facility] Urine sediment bacteria coun t by microscopy (number/high power field)Ordered By: Michele Kebede on 11-18-2023 Bacteria LM.HPF (Urine sed) [#/Area] 1 /[HPF] None Seen [facility] Urine specific gravity measu rementOrdered By: Michele Kebede on 11-18-2023 Specific gravity (U) [Rel density] 1.015 1.002-1.03 0 [facility] Urobilinogen Auto test strip Ql (U)Ordered By: Michele Kebede on 11-18-2023 Urobilinogen Ql (U) Normal mg/dl Normal [facility] Absolute lymphocyte countOrd ered By: Sommer White on 11-16-2023 Lymphocytes Auto (Unsp spec) [#/Vol] 0.96 10*3/uL 0.83-4.51 [facility] Basophil percentageOrdered B y: White on 11-16-2023 Basophil percentage 73 mg/dL 74-106 [facility] Basophil percentage 5.9 g/dL 6.4-8.2 [facility] Basophil percentage 0.40 mg/dL 0.20-1.00 [facility] Basophil percentage 135 mmol/L 136-145 [facility] Basophil percentage 3.6 mmol/L 3.5-5.1 [facility] Basophil percentage 107 mmol/L 98-107 [facility] Basophils (Bld) [#/Vol] 3.8 10*3/uL 4.4-11.0 [facility] Basophils (Bld) [#/Vol] 2.2 10*3/uL 2.0-7.7 [facility] Basophils/100 WBC (Bld) 0.3 % 0-1 [facility] Basophils/100 WBC (Bld) 57.7 % 47-70 [facility] Bilirubin [Mass/Vol] 0.40 mg/dL 0.20-1.00 [facility] Comment on above: For patients on eltr ombopag therapy, use of Dimension [place] TBIL is not recommended. Chloride [Moles/Vol] 107 mmol/L 98-107 [facility] Eosinophils/100 WBC (Bld) 0.3 % 0-5 [facility] Glucose [Mass/Vol] 73 mg/dL 74-106 [facility] Neutrophils (Bld) [#/Vol] 2.2 10*3/uL 2.0-7.7 [facility] Neutrophils/100 WBC (Bld) 57.7 % 47-70 [facility] Potassium [Moles/Vol] 3.6 mmol/L 3.5-5.1 [facility] Protein [Mass/Vol] 5.9 g/dL 6.4-8.2 [facility] Sodium [Moles/Vol] 135 mmol/L 136-145 [facility] WBC (Bld) [#/Vol] 3.8 10*3/uL 4.4-11.0 [facility] Blood erythrocytes count (nu mber/volume)Ordered By: Sommer Resendiz on 11-16-2023 RBC (Bld) [#/Vol] 4.20 10*6/uL 4.2-5.4 [facility] Blood hemoglobin measurement (mass/volume)Ordered By: Sommer Resendiz on 11-16-2023 Hemoglobin (Bld) [Mass/Vol] 12.2 g/dL 12.0-15.0 [facility] Blood lymphocytes/100 leukoc ytesOrdered By: Sommer Martín on 11-16-2023 Lymphocytes/100 WBC (Bld) 25.5 % 19-41 [facility] Blood monocytes/100 leukocyt esOrdered By: [facility] Martín on 11-16-2023 Monocytes/100 WBC (Bld) 15.7 % 0-10 W [facility] Blood platelet mean volumeOr dered By: [facility] Martín on 11-16-2023 Platelet mean volume (Bld) [Entitic vol] 10.1 fL 6.2-12.0 [facility] Determination of erythrocyte mean corpuscular volume (MCV)Ordered By: Sommer Resendiz on 11-16-2023 MCV (RBC) [Entitic vol] 88.3 fL 81-99 W [facility] Hematocrit Auto (Bld) [Volum e fraction]Ordered By: Sommer Resendiz on 11-16-2023 Hematocrit (Bld) [Volume fraction] 37.1 % 37-47 [facility] Laboratory - Chemistry and C hemistry - challengeOrdered By: [facility] Martín on 11-16-2023 ALP [Catalytic activity/Vol] 90 U/L 45-117 [facility] ALT [Catalytic activity/Vol] 23 U/L 13-56 [facility] CO2 [Moles/Vol] 21.0 mmol/L 21.0-32.0 [facility] Globulin (S) [Mass/Vol] 3.0 g/dL 2.2-4.2 W [facility] Urea nitrogen/Creatinine [Mass ratio] 26.4 mg/mg 10-20 [facility] Laboratory - Hematology and Cell countsOrdered By: [facility] Martín on 11-16-2023 Erythrocyte distribution width (RBC) [Entitic vol] 48.2 fL 35.1-43.9 [facility] Erythrocyte distribution width (RBC) [Ratio] 14.8 % 11.6-14.6 [facility] Immature granulocytes/100 WBC (Bld) 0.500 % 0.0-0.9 [facility] Comment on above: IG% - Immature Granu locytes (promyelocytes, myelocytes and metamyelocytes) > 1% indicates that a LEFT SHIFT is Present. MCH (RBC) [Entitic mass] 29.0 pg 27.0-32.0 [facility] Nucleated RBC/100 WBC (Bld) [Ratio] 0 % 0-5 [facility] MCHC Auto (RBC) [Mass/Vol]Or dered By: Sommer Resendiz on 11-16-2023 MCHC (RBC) [Mass/Vol] 32.9 g/dL 32-36 [facility] No Panel InformationOrdered By: Sommer Resendiz on 11-16-2023 Estimated Creatinine Clearance Calc 28.68 ml/min [facility] Estimated GFR (MDRD) Amer 41 mL/min >60 [facility] Comment on above: GFR Calc Estimated GFR (MDRD) Non-Af Amer 34 mL/min >60 [facility] Comment on above: Non- GFR Calc 29.0 pg 27.0-32.0 [facility] 14.8 % 11.6-14.6 [facility] 48.2 fl 35.1-43.9 [facility] 0.500 % 0.0-0.9 [facility] 0 % 0-5 [facility] 34 mL/min >60 [facility] 41 mL/min >60 [facility] 28.68 ml/min [facility] 26.4 RATIO 10-20 [facility] 3.0 g/dL 2.2-4.2 [facility] 90 U/L 45-117 [facility] 23 U/L 13-56 [facility] 21.0 mmol/L 21.0-32.0 [facility] Platelets bldOrdered By: Julian Resendiz on 11-16-2023 Platelets (Bld) [#/Vol] 136 10*3/uL 150-450 [facility] Serum or plasma albumin stefania urement (mass/volume)Ordered By: Sommer Resendiz on 11-16-2023 Albumin [Mass/Vol] 2.9 g/dL 3.2-5.0 [facility] Serum or plasma albumin/glob ulin mass ratioOrdered By: Sommer Resendiz on 11-16-2023 Albumin/Globulin [Mass ratio] 1.0 {ratio} 0.9-2.4 [facility] Serum or plasma calcium stefania urement (mass/volume)Ordered By: Sommer Martín on 11-16-2023 Calcium [Mass/Vol] 7.4 mg/dL 8.5-10.1 [facility] Serum or plasma creatinine m easurement (mass/volume)Ordered By: Sommer Martín on 11-16-2023 Creatinine [Mass/Vol] 1.59 mg/dL 0.55-1.02 [facility] Comment on above: The validity of the calculated GFR & GFRAA in patients over 70 years has not been determined. Clinical correlation is essential. Serum or plasma urea nitroge n measurement (mass/volume)Ordered By: Sommer Martín on 11-16-2023 Urea nitrogen [Mass/Vol] 42 mg/dL 7-18 [facility] Thin prep Papanicolaou smear with manual screeningOrdered By: Sommer Martín on 11-16-2023 Thin prep Papanicolaou smear with manual screening 28 U/L 15-37 [facility] Thin prep Papanicolaou smear with manual screening 7 5-15 [facility] Absolute lymphocyte countOrd ered By: Michele Kebede on 11-15-2023 Lymphocytes Auto (Unsp spec) [#/Vol] 0.70 10*3/uL 0.83-4.51 [facility] Basophil percentageOrdered B y: Michele Kebede on 11-15-2023 Basophil percentage 5-10 SEEN /hpf 0-5 W [facility] Basophils/100 WBC (Bld) 0.2 % 0-1 W [facility] Bilirubin [Mass/Vol] 0.30 mg/dL 0.20-1.00 [facility] Comment on above: For patients on eltr ombopag therapy, use of Dimension [place] TBIL is not recommended. Chloride [Moles/Vol] 97 mmol/L 98-107 [facility] Eosinophils/100 WBC (Bld) 0.0 % 0-5 [facility] Glucose [Mass/Vol] 80 mg/dL 74-106 [facility] Neutrophils (Bld) [#/Vol] 3.4 10*3/uL 2.0-7.7 [facility] Neutrophils/100 WBC (Bld) 70.4 % 47-70 [facility] Potassium [Moles/Vol] 3.9 mmol/L 3.5-5.1 [facility] Protein [Mass/Vol] 6.9 g/dL 6.4-8.2 [facility] Sodium [Moles/Vol] 130 mmol/L 136-145 [facility] WBC (Bld) [#/Vol] 4.9 10*3/uL 4.4-11.0 [facility] Bilirubin Test strip Ql (U)O rdered By: Michele Kebede on 11-15-2023 Bilirubin Ql (U) Negative Negative [facility] Blood erythrocytes count (nu mber/volume)Ordered By: Michele Kebede on 11-15-2023 RBC (Bld) [#/Vol] 4.74 10*6/uL 4.2-5.4 [facility] Blood hemoglobin measurement (mass/volume)Ordered By: Michele Kebede on 11-15-2023 Hemoglobin (Bld) [Mass/Vol] 13.7 g/dL 12.0-15.0 [facility] Blood lymphocytes/100 leukoc ytesOrdered By: Michele Kebede on 11-15-2023 Lymphocytes/100 WBC (Bld) 14.3 % 19-41 [facility] Blood monocytes/100 leukocyt esOrdered By: Michele Kebede on 11-15-2023 Monocytes/100 WBC (Bld) 14.5 % 0-10 [facility] Blood platelet mean volumeOr dered By: Michele Kebede on 11-15-2023 Platelet mean volume (Bld) [Entitic vol] 10.1 fL 6.2-12.0 [facility] Calcium oxalate crystals det ection in urine sediment by light microscopyOrdered By: Michele Kebede on 11-15-2023 Calcium oxalate crystals LM Ql (Urine sed) RARE /hpf [facility] Determination of erythrocyte mean corpuscular volume (MCV)Ordered By: Michele Kebede on 11-15-2023 MCV (RBC) [Entitic vol] 86.3 fL 81-99 [facility] Hematocrit Auto (Bld) [Volum e fraction]Ordered By: Michele Kebede on 11-15-2023 Hematocrit (Bld) [Volume fraction] 40.9 % 37-47 [facility] Ketones Test strip Ql (U)Ord ered By: Michele Kebede on 11-15-2023 Ketones Ql (U) 5 mg/dl Negative [facility] Laboratory - Chemistry and C hemistry - challengeOrdered By: Michele Kebede on 11-15-2023 ALP [Catalytic activity/Vol] 104 U/L 45-117 [facility] ALT [Catalytic activity/Vol] 27 U/L 13-56 [facility] CO2 [Moles/Vol] 21.0 mmol/L 21.0-32.0 [facility] Globulin (S) [Mass/Vol] 3.6 g/dL 2.2-4.2 W [facility] Lipase [Catalytic activity/Vol] 60 U/L 13-75 [facility] Comment on above: Please note:LIPASE r evised reference range effective 23. New Lipase methodology. Expected to produce lower values than the previous assay method. NEW Reference Range: 13 - 75 U/L Urea nitrogen/Creatinine [Mass ratio] 25.5 mg/mg 10-20 [facility] Laboratory - Hematology and Cell countsOrdered By: Michele Kebede on 11-15-2023 Erythrocyte distribution width (RBC) [Entitic vol] 46.6 fL 35.1-43.9 [facility] Erythrocyte distribution width (RBC) [Ratio] 14.6 % 11.6-14.6 [facility] Immature granulocytes/100 WBC (Bld) 0.600 % 0.0-0.9 [facility] Comment on above: IG% - Immature Granu locytes (promyelocytes, myelocytes and metamyelocytes) > 1% indicates that a LEFT SHIFT is Present. MCH (RBC) [Entitic mass] 28.9 pg 27.0-32.0 [facility] Nucleated RBC/100 WBC (Bld) [Ratio] 0 % 0-5 [facility] Laboratory - Microbiology an d Antimicrobial susceptibilityOrdered By: Michele Kebede on 11-15-2023 SARS-CoV-2 (COVID-19) RNA JAYDON+probe Ql (Unsp spec) Influenzae A [facility] MCHC Auto (RBC) [Mass/Vol]Or dered By: Michele Kebede on 11-15-2023 MCHC (RBC) [Mass/Vol] 33.5 g/dL 32-36 [facility] Mucus LM Ql (Urine sed)Order ed By: Michele Kebede on 11-15-2023 Mucus Ql (Urine sed) 0 SEEN /hpf [facility] Nitrite Test strip Ql (U)Ord ered By: Michele Kebede on 11-15-2023 Nitrite Ql (U) Negative Negative [facility] No Panel InformationOrdered By: Michele Kebede on 11-15-2023 Influenzae A [facility] Influenzae A [facility] Estimated Creatinine Clearance Calc 19.03 ml/min [facility] Estimated GFR (MDRD) Amer 24 mL/min >60 [facility] Comment on above: GFR Calc Estimated GFR (MDRD) Non-Af Amer 20 mL/min >60 [facility] Comment on above: Non- GFR Calc 60 U/L 13-75 [facility] Platelets bldOrdered By: Randee Kebede on 11-15-2023 Platelets (Bld) [#/Vol] 164 10*3/uL 150-450 [facility] Protein Test strip Ql (U)Ord ered By: Michele Kebede on 11-15-2023 Protein Ql (U) 15 mg/dl Negative [facility] Serum or plasma albumin stefania urement (mass/volume)Ordered By: Michele Kebede on 11-15-2023 Albumin [Mass/Vol] 3.3 g/dL 3.2-5.0 [facility] Serum or plasma albumin/glob ulin mass ratioOrdered By: Michele Kebede on 11-15-2023 Albumin/Globulin [Mass ratio] 0.9 {ratio} 0.9-2.4 [facility] Serum or plasma calcium stefania urement (mass/volume)Ordered By: Michele Kebede on 11-15-2023 Calcium [Mass/Vol] 8.1 mg/dL 8.5-10.1 [facility] Serum or plasma creatinine m easurement (mass/volume)Ordered By: Michele Kebede on 11-15-2023 Creatinine [Mass/Vol] 2.51 mg/dL 0.55-1.02 [facility] Comment on above: The validity of the calculated GFR & GFRAA in patients over 70 years has not been determined. Clinical correlation is essential. Serum or plasma urea nitroge n measurement (mass/volume)Ordered By: Michele Kebede on 11-15-2023 Urea nitrogen [Mass/Vol] 64 mg/dL 7-18 [facility] Serum procalcitonin measurem entOrdered By: Sommer Resendiz on 11-15-2023 Procalcitonin [Mass/Vol] 0.24 ng/mL 0.00-0.09 [facility] Comment on above: A procalcitonin (PCT ) [...] Ql (Urine sed) 5-10 SEEN /hpf 5-10 [facility] Thin prep Papanicolaou smear with manual screeningOrdered By: Michele Kebede on 11-15-2023 Thin prep Papanicolaou smear with manual screening 34 U/L 15-37 [facility] Thin prep Papanicolaou smear with manual screening 12 5-15 [facility] Urine blood detectionOrdered By: Michele Kebede on 11-15-2023 RBC Ql (U) 25 /ul Negative [facility] RBC Ql (U) 0-5 SEEN /hpf 0-5 [facility] Urine clarityOrdered By: Randee Kebede on 11-15-2023 Clarity (U) Sl. Cloudy Clear [facility] Urine color determinationOrd ered By: Michele Kebede on 11-15-2023 Color (U) Yellow Yellow [facility] Urine glucose detectionOrder ed By: Michele Kebede on 11-15-2023 Glucose Ql (U) Normal mg/dl Normal [facility] Urine leukocyte esterase det ection by dipstickOrdered By: Michele Kebede on 11-15-2023 Leukocyte esterase Test strip Ql (U) 100 /ul Negative [facility] Urine pHOrdered By: Michele gutierrez on 11-15-2023 pH (U) 5.0 [pH] 5.0 - 8.0 [facility] Urine sediment bacteria coun t by microscopy (number/high power field)Ordered By: Michele Kebede on 11-15-2023 Bacteria LM.HPF (Urine sed) [#/Area] RARE /hpf None Seen [facility] Urine specific gravity measu rementOrdered By: Michele Kebede on 11-15-2023 Specific gravity (U) [Rel density] 1.015 1.002-1.03 0 [facility] Urobilinogen Auto test strip Ql (U)Ordered By: Michele Kebede on 11-15-2023 Urobilinogen Ql (U) Normal mg/dl Normal [facility] IR ARTERIOGRAM EXTREMITY HUNG ATERAL LOWERon 11-13-2023 IR ARTERIOGRAM EXTREMITY BILATERAL LOWER ORIGINAL Images acquired, not reported on this accession number. Normal [facility] ([place]) .Auto Diffon 10-26-2023 Basophil, Absolute 0.1 10 3/mcL Normal 0.0-0.3 [facility] ([place]) Comment on above: Performed By: #### A KAILA, ADIFF, GFR, BMP, CBC #### [address] [address] Basophils/100 WBC (Bld) 0.8 % Normal 0.0-2.5 A [facility] ([place]) Comment on above: Performed By: #### A KAILA, ADIFF, GFR, BMP, CBC #### [address] [address] Eosinophil, Absolute 0.1 10 3/mcL Normal 0.0-0.7 [facility] ([place]) Comment on above: Performed By: #### A KAILA, ADIFF, GFR, BMP, CBC #### [address] [address] Eosinophils/100 WBC (Bld) 1.5 % Normal 0.0-6.0 [facility] ([place]) Comment on above: Performed By: #### A KAILA, ADIFF, GFR, BMP, CBC #### [address] [address] Lymphocyte, Absolute 1.3 10 3/mcL Normal 0.9-4.3 [facility] ([place]) Comment on above: Performed By: #### A KAILA, ADIFF, GFR, BMP, CBC #### [address] [address] Lymphocytes/100 WBC (Bld) 16.6 % Low 20.0-40.0 [facility] ([place]) Comment on above: Performed By: #### A KAILA, ADIFF, GFR, BMP, CBC #### [address] [address] Monocyte, Absolute 0.6 10 3/mcL Normal 0.1-1.4 [facility] ([place]) Comment on above: Performed By: #### A KAILA, ADIFF, GFR, BMP, CBC #### [address] [address] Monocytes/100 WBC (Bld) 7.8 % Normal 2.0-13.0 A [facility] ([place]) Comment on above: Performed By: #### A KAILA, ADIFF, GFR, BMP, CBC #### [address] [address] Neutrophils/100 WBC (Bld) 73.3 % Normal 50.0-75.0 [facility] ([place]) Comment on above: Performed By: #### A KAILA, ADIFF, GFR, BMP, CBC #### [address] [address] .GFRon 10-26-2023 GFR 53 ml/min/1.73sqm Normal [facility] ([place]) Comment on above: Result Comment: GFR Population [...] A KAILA, ADIFF, GFR, BMP, CBC #### [address] [address] GFR Non- 44 ml/min/1.73sqm Normal [facility] ([place]) Comment on above: Result Comment: GFR Population [...] mL/min/1.73 square meters Performed By: #### A KIALA, ADIFF, GFR, BMP, CBC #### [address] [address] .NEUABSon 10-26-2023 Neutrophil, Absolute 5.7 10 3/mcL Normal 2.3-8.1 [facility] ([place]) Comment on above: Performed By: #### A KAILA, ADIFF, GFR, BMP, CBC #### [address] [address] BMPon 10-26-2023 BUN/Creatinine Ratio 25.6 ratio High 10.0-22.0 [facility] ([place]) Comment on above: Order Comment: cyndi randolph talk andrew dorsey Performed By: #### A KAILA, ADIFF, GFR, BMP, CBC #### [address] [address] [address] Calcium [Mass/Vol] 7.7 mg/dL Low 8.7-10.4 [facility] ([place]) Comment on above: Order Comment: hemol yzed talk to noa Performed By: #### A KAILA, ADIFF, GFR, BMP, CBC #### [address] [address] Chloride [Moles/Vol] 114 mmol/L High 98-110 [facility] ([place]) Comment on above: Order Comment: hemol yzed talk to noa Performed By: #### A KAILA, ADIFF, GFR, BMP, CBC #### [address] [address] CO2 [Moles/Vol] 29 mmol/L Normal 22-32 [facility] ([place]) Comment on above: Order Comment: hemol yzed talk to noa Performed By: #### A KAILA, ADIFF, GFR, BMP, CBC #### [place] [address] Creatinine [Mass/Vol] 1.21 mg/dL High 0.50-1.20 [facility] ([place]) Comment on above: Order Comment: hemol yzed talk to noa Performed By: #### A KAILA, ADIFF, GFR, BMP, CBC #### [place] [address] Electrolyte Balance -1.0 mEq/L Low 4.0-15.0 [facility] ([place]) Comment on above: Order Comment: hemol yzed talk to noa Performed By: #### A KAILA, ADIFF, GFR, BMP, CBC #### [place] [id number] Potassium [Moles/Vol] 3.9 mmol/L Normal 3.5-5.0 [facility] ([place]) Comment on above: Order Comment: hemol yzed talk to noa Performed By: #### A KAILA, ADIFF, GFR, BMP, CBC #### [place] [id number] Sodium [Moles/Vol] 142 mmol/L Normal 136-145 [facility] ([place]) Comment on above: Order Comment: hemol yzed talk to noa Performed By: #### A KAILA, ADIFF, GFR, BMP, CBC #### [address] [address] Glucose [Mass/Vol] 78 mg/dL Low 82-115 [facility] ([place]) Comment on above: Order Comment: hemol yzed talk to noa Performed By: #### A KAILA, ADIFF, GFR, BMP, CBC #### [address] [address] Urea nitrogen [Mass/Vol] 31.0 mg/dL High 8.0-22.0 [facility] ([place]) Comment on above: Order Comment: hemol yzed talk to noa Performed By: #### A KAILA, ADIFF, GFR, BMP, CBC #### [place] [address] CBCon 10-26-2023 Erythrocyte distribution width (RBC) [Ratio] 14.9 % Normal 11.5-15.5 [facility] ([place]) Comment on above: Performed By: #### A KAILA, ADIFF, GFR, BMP, CBC #### [place] [address] Hematocrit (Bld) [Volume fraction] 40.0 % Normal 34.0-46.0 [facility] ([place]) Comment on above: Performed By: #### A KAILA, ADIFF, GFR, BMP, CBC #### [place] [address] Hgb 13.7 G/dL Normal 12.0-16.0 [facility] ([place]) Comment on above: Performed By: #### A KAILA, ADIFF, GFR, BMP, CBC #### [place] [address] MCH (RBC) [Entitic mass] 29.9 pg Normal 27.0-33.0 [facility] ([place]) Comment on above: Performed By: #### A KAILA, ADIFF, GFR, BMP, CBC #### [place] [address] MCHC 34.2 G/dL Normal 32.0-36.0 [facility] ([place]) Comment on above: Performed By: #### A KAILA, ADIFF, GFR, BMP, CBC #### [address] [address] MCV (RBC) [Entitic vol] 87.4 fL Normal 80.0-99.0 A [facility] ([place]) Comment on above: Performed By: #### A KAILA, ADIFF, GFR, BMP, CBC #### [address] [address] Platelet 188 10 3/mcL Normal 150-450 [facility] ([place]) Comment on above: Performed By: #### A KAILA, ADIFF, GFR, BMP, CBC #### [address] [address] Platelet mean volume (Bld) [Entitic vol] 7.5 fL Normal 6.6-10.5 [facility] ([place]) Comment on above: Performed By: #### A KAILA, ADIFF, GFR, BMP, CBC #### [place] [address] RBC 4.57 10 6/mcL Normal 4.10-5.30 [facility] ([place]) Comment on above: Performed By: #### A KAILA, ADIFF, GFR, BMP, CBC #### [address] [address] WBC 7.8 10 3/mcL Normal 4.5-10.8 [facility] ([place]) Comment on above: Performed By: #### A KAILA, ADIFF, GFR, BMP, CBC #### [address] [address] * Body fluid crystals type b y light microscopyOrdered By: Kai Jacobson on 10-22-2023 Crystals LM Nom (Body fld) See PATH REV [facility] Comment on above: CRYSTAL RESULT IS PRELIMINARY. SEE PATH REVIEW FOR FINAL REPORT. Review by pathologistOrdered By: Kai Jacobson on 10-22-2023 Pathologist review Jimy (Unsp spec) [Interp] Reviewed [facility] Comment on above: Previous reported re sult: Will follow Edited by: PELON on 10/23/23:1346Negative for Mann Thomas M.D. 10/23/23 AMENDED REPORT 10/23/23 1346 PATH REV previously reported as: Will follow Specimen source identificati on of body fluidOrdered By: Kai Jacobson on 10-22-2023 Specimen source Nom (Body fld) SYNOVIAL [facility] Absolute lymphocyte countOrd ered By: ED PROVIDER on 10-05-2023 Lymphocytes Auto (Unsp spec) [#/Vol] 1.62 10*3/uL 0.83-4.51 [facility] Basophil percentageOrdered B y: ED PROVIDER on 10-05-2023 Basophil percentage 108 mg/dL 74-106 [facility] Basophil percentage 142 mmol/L 136-145 [facility] Basophil percentage 4.3 mmol/L 3.5-5.1 [facility] Basophil percentage 110 mmol/L 98-107 [facility] Basophils (Bld) [#/Vol] 7.2 10*3/uL 4.4-11.0 [facility] Basophils (Bld) [#/Vol] 4.8 10*3/uL 2.0-7.7 [facility] Basophils/100 WBC (Bld) 0.7 % 0-1 W [facility] Basophils/100 WBC (Bld) 66.3 % 47-70 W [facility] Basophils/100 WBC (Bld) 2.9 % 0-5 [facility] Chloride [Moles/Vol] 110 mmol/L 98-107 [facility] Eosinophils/100 WBC (Bld) 2.9 % 0-5 [facility] Glucose [Mass/Vol] 108 mg/dL 74-106 [facility] Comment on above: Fasting Glucose resu lt from 100 to 125 mg/dL suggests IMPAIRED HOMEOSTASIS per A.D.A. criteria. Neutrophils (Bld) [#/Vol] 4.8 10*3/uL 2.0-7.7 [facility] Neutrophils/100 WBC (Bld) 66.3 % 47-70 [facility] Potassium [Moles/Vol] 4.3 mmol/L 3.5-5.1 [facility] Sodium [Moles/Vol] 142 mmol/L 136-145 [facility] WBC (Bld) [#/Vol] 7.2 10*3/uL 4.4-11.0 [facility] Blood erythrocytes count (nu mber/volume)Ordered By: ED PROVIDER on 10-05-2023 RBC (Bld) [#/Vol] 5.19 10*6/uL 4.2-5.4 [facility] Blood hemoglobin measurement (mass/volume)Ordered By: ED PROVIDER on 10-05-2023 Hemoglobin (Bld) [Mass/Vol] 14.9 g/dL 12.0-15.0 [facility] Blood lymphocytes/100 leukoc ytesOrdered By: ED PROVIDER on 10-05-2023 Lymphocytes/100 WBC (Bld) 22.4 % 19-41 [facility] Blood monocytes/100 leukocyt esOrdered By: ED PROVIDER on 10-05-2023 Monocytes/100 WBC (Bld) 7.3 % 0-10 W [facility] Blood platelet mean volumeOr dered By: ED PROVIDER on 10-05-2023 Platelet mean volume (Bld) [Entitic vol] 9.6 fL 6.2-12.0 [facility] Determination of erythrocyte mean corpuscular volume (MCV)Ordered By: ED PROVIDER on 10-05-2023 MCV (RBC) [Entitic vol] 88.8 fL 81-99 W [facility] Hematocrit Auto (Bld) [Volum e fraction]Ordered By: ED PROVIDER on 10-05-2023 Hematocrit (Bld) [Volume fraction] 46.1 % 37-47 [facility] Laboratory - Chemistry and C hemistry - challengeOrdered By: Yasmani Haynes on 10-05-2023 Magnesium [Mass/Vol] 2.0 mg/dL 1.6-2.6 [facility] Laboratory - Chemistry and C hemistry - challengeOrdered By: ED PROVIDER on 10-05-2023 CO2 [Moles/Vol] 27.0 mmol/L 21.0-32.0 [facility] Urea nitrogen/Creatinine [Mass ratio] 20.7 mg/mg 10-20 [facility] Laboratory - Hematology and Cell countsOrdered By: ED PROVIDER on 10-05-2023 Erythrocyte distribution width (RBC) [Entitic vol] 45.3 fL 35.1-43.9 [facility] Erythrocyte distribution width (RBC) [Ratio] 14.0 % 11.6-14.6 [facility] Immature granulocytes/100 WBC (Bld) 0.400 % 0.0-0.9 [facility] Comment on above: IG% - Immature Granu locytes (promyelocytes, myelocytes and metamyelocytes) > 1% indicates that a LEFT SHIFT is Present. MCH (RBC) [Entitic mass] 28.7 pg 27.0-32.0 [facility] Nucleated RBC/100 WBC (Bld) [Ratio] 0 % 0-5 [facility] MCHC Auto (RBC) [Mass/Vol]Or dered By: ED PROVIDER on 10-05-2023 MCHC (RBC) [Mass/Vol] 32.3 g/dL 32-36 [facility] No Panel InformationOrdered By: ED PROVIDER on 10-05-2023 Troponin I High Sensitivity 8 pg/mL 3.0-54.0 [facility] Comment on above: Please Note: New Kim t Units and Gender Specific Reference Ranges. For more information see Policy Stat Procedure [place] High Sensitivity Troponin (TNIH) and attachments. 8 pg/mL 3.0-54.0 [facility] Estimated Creatinine Clearance Calc 43.04 ml/min [facility] Estimated GFR (MDRD) Amer 63 mL/min >60 [facility] Comment on above: GFR Calc Estimated GFR (MDRD) Non-Af Amer 52 mL/min >60 [facility] Comment on above: Non- GFR Calc 28.7 pg 27.0-32.0 [facility] 14.0 % 11.6-14.6 [facility] 45.3 fl 35.1-43.9 [facility] 0.400 % 0.0-0.9 [facility] 0 % 0-5 [facility] 52 mL/min >60 [facility] 63 mL/min >60 [facility] 43.04 ml/min [facility] 20.7 RATIO 10-20 [facility] 27.0 mmol/L 21.0-32.0 [facility] No Panel InformationOrdered By: Yasmani Haynes on 10-05-2023 2.0 mg/dL 1.6-2.6 [facility] Platelets bldOrdered By: ED PROVIDER on 10-05-2023 Platelets (Bld) [#/Vol] 206 10*3/uL 150-450 [facility] Serum or plasma calcium stefania urement (mass/volume)Ordered By: ED PROVIDER on 10-05-2023 Calcium [Mass/Vol] 9.5 mg/dL 8.5-10.1 [facility] Serum or plasma creatinine m easurement (mass/volume)Ordered By: ED PROVIDER on 10-05-2023 Creatinine [Mass/Vol] 1.11 mg/dL 0.55-1.02 [facility] Comment on above: The validity of the calculated GFR & GFRAA in patients over 70 years has not been determined. Clinical correlation is essential. Serum or plasma urea nitroge n measurement (mass/volume)Ordered By: ED PROVIDER on 10-05-2023 Urea nitrogen [Mass/Vol] 23 mg/dL 7-18 [facility] Thin prep Papanicolaou smear with manual screeningOrdered By: ED PROVIDER on 10-05-2023 Thin prep Papanicolaou smear with manual screening 5 5-15 [facility] Absolute lymphocyte countOrd ered By: Daron Benton on 08-21-2023 Lymphocytes Auto (Unsp spec) [#/Vol] 1.45 10*3/uL 0.83-4.51 [facility] Basophil percentageOrdered B y: Daron Benton on 08-21-2023 Basophil percentage 86 mg/dL 74-106 [facility] Basophil percentage 7.3 g/dL 6.4-8.2 [facility] Basophil percentage 0.30 mg/dL 0.20-1.00 [facility] Basophil percentage 139 mmol/L 136-145 [facility] Basophil percentage 4.7 mmol/L 3.5-5.1 [facility] Basophil percentage 108 mmol/L 98-107 [facility] Basophils (Bld) [#/Vol] 7.3 10*3/uL 4.4-11.0 [facility] Basophils (Bld) [#/Vol] 5.0 10*3/uL 2.0-7.7 [facility] Basophils/100 WBC (Bld) 0.7 % 0-1 W [facility] Basophils/100 WBC (Bld) 68.4 % 47-70 W [facility] Basophils/100 WBC (Bld) 3.1 % 0-5 [facility] Bilirubin [Mass/Vol] 0.30 mg/dL 0.20-1.00 [facility] Comment on above: For patients on eltr ombopag therapy, use of Dimension [place] TBIL is not recommended. Chloride [Moles/Vol] 108 mmol/L 98-107 [facility] Eosinophils/100 WBC (Bld) 3.1 % 0-5 [facility] Glucose [Mass/Vol] 86 mg/dL 74-106 [facility] Neutrophils (Bld) [#/Vol] 5.0 10*3/uL 2.0-7.7 [facility] Neutrophils/100 WBC (Bld) 68.4 % 47-70 [facility] Potassium [Moles/Vol] 4.7 mmol/L 3.5-5.1 [facility] Protein [Mass/Vol] 7.3 g/dL 6.4-8.2 [facility] Sodium [Moles/Vol] 139 mmol/L 136-145 [facility] WBC (Bld) [#/Vol] 7.3 10*3/uL 4.4-11.0 [facility] Blood erythrocytes count (nu mber/volume)Ordered By: Daron Benton on 08-21-2023 RBC (Bld) [#/Vol] 4.99 10*6/uL 4.2-5.4 [facility] Blood hemoglobin measurement (mass/volume)Ordered By: Daron Benton on 08-21-2023 Hemoglobin (Bld) [Mass/Vol] 14.5 g/dL 12.0-15.0 [facility] Blood lymphocytes/100 leukoc ytesOrdered By: Daron Benton on 08-21-2023 Lymphocytes/100 WBC (Bld) 19.8 % 19-41 [facility] Blood monocytes/100 leukocyt esOrdered By: Daron Benton on 08-21-2023 Monocytes/100 WBC (Bld) 7.5 % 0-10 [facility] Blood platelet mean volumeOr dered By: Daron Benton on 08-21-2023 Platelet mean volume (Bld) [Entitic vol] 10.7 fL 6.2-12.0 [facility] Determination of erythrocyte mean corpuscular volume (MCV)Ordered By: Daron Benton on 08-21-2023 MCV (RBC) [Entitic vol] 91.6 fL 81-99 W [facility] Hematocrit Auto (Bld) [Volum e fraction]Ordered By: Daron Benton on 08-21-2023 Hematocrit (Bld) [Volume fraction] 45.7 % 37-47 [facility] Laboratory - Chemistry and C hemistry - challengeOrdered By: Daron Benton on 08-21-2023 ALP [Catalytic activity/Vol] 122 U/L 45-117 [facility] ALT [Catalytic activity/Vol] 26 U/L 13-56 [facility] CO2 [Moles/Vol] 28.0 mmol/L 21.0-32.0 [facility] Globulin (S) [Mass/Vol] 3.6 g/dL 2.2-4.2 W [facility] Urea nitrogen/Creatinine [Mass ratio] 22.2 mg/mg 10-20 [facility] Laboratory - Hematology and Cell countsOrdered By: Daron Benton on 08-21-2023 Erythrocyte distribution width (RBC) [Entitic vol] 46.4 fL 35.1-43.9 [facility] Erythrocyte distribution width (RBC) [Ratio] 13.8 % 11.6-14.6 [facility] Immature granulocytes/100 WBC (Bld) 0.500 % 0.0-0.9 [facility] Comment on above: IG% - Immature Granu locytes (promyelocytes, myelocytes and metamyelocytes) > 1% indicates that a LEFT SHIFT is Present. MCH (RBC) [Entitic mass] 29.1 pg 27.0-32.0 [facility] Nucleated RBC/100 WBC (Bld) [Ratio] 0 % 0-5 [facility] MCHC Auto (RBC) [Mass/Vol]Or dered By: Daron Benton on 08-21-2023 MCHC (RBC) [Mass/Vol] 31.7 g/dL 32-36 [facility] No Panel InformationOrdered By: Daron Benton on 08-21-2023 Estimated GFR (MDRD) Amer 65 mL/min >60 [facility] Comment on above: GFR Calc Estimated GFR (MDRD) Non-Af Amer 53 mL/min >60 [facility] Comment on above: Non- GFR Calc Thyroid Stimulating Hormone (TSH) 2.00 uIU/mL 0.358-3.74 [facility] 29.1 pg 27.0-32.0 [facility] 13.8 % 11.6-14.6 [facility] 46.4 fl 35.1-43.9 [facility] 0.500 % 0.0-0.9 [facility] 0 % 0-5 [facility] 53 mL/min >60 [facility] 65 mL/min >60 [facility] 22.2 RATIO 10-20 [facility] 3.6 g/dL 2.2-4.2 [facility] 122 U/L 45-117 [facility] 26 U/L 13-56 [facility] 28.0 mmol/L 21.0-32.0 [facility] 2.00 uIU/mL 0.358-3.74 [facility] Platelets bldOrdered By: Nila Benton on 08-21-2023 Platelets (Bld) [#/Vol] 184 10*3/uL 150-450 [facility] Serum or plasma albumin stefania urement (mass/volume)Ordered By: Daron Benton on 08-21-2023 Albumin [Mass/Vol] 3.7 g/dL 3.2-5.0 [facility] Serum or plasma albumin/glob ulin mass ratioOrdered By: Daron Benton on 08-21-2023 Albumin/Globulin [Mass ratio] 1.0 {ratio} 0.9-2.4 [facility] Serum or plasma calcium stefania urement (mass/volume)Ordered By: Daron Benton on 08-21-2023 Calcium [Mass/Vol] 9.2 mg/dL 8.5-10.1 [facility] Serum or plasma creatinine m easurement (mass/volume)Ordered By: Daron Benton on 08-21-2023 Creatinine [Mass/Vol] 1.08 mg/dL 0.55-1.02 [facility] Comment on above: The validity of the calculated GFR & GFRAA in patients over 70 years has not been determined. Clinical correlation is essential. Serum or plasma urea nitroge n measurement (mass/volume)Ordered By: Daron Benton on 08-21-2023 Urea nitrogen [Mass/Vol] 24 mg/dL 7-18 [facility] Thin prep Papanicolaou smear with manual screeningOrdered By: Daron Benton on 08-21-2023 Thin prep Papanicolaou smear with manual screening 18 U/L 15-37 [facility] Thin prep Papanicolaou smear with manual screening 3 5-15 [facility] Basophil percentageOrdered B y: Dr. Benton on 04-26-2023 Bilirubin [Mass/Vol] 0.30 mg/dL 0.20-1.00 [facility] Comment on above: For patients on eltr ombopag therapy, use of Dimension [place] TBIL is not recommended. Chloride [Moles/Vol] 109 mmol/L 98-107 [facility] Glucose [Mass/Vol] 95 mg/dL 74-106 [facility] Potassium [Moles/Vol] 4.6 mmol/L 3.5-5.1 [facility] Protein [Mass/Vol] 7.1 g/dL 6.4-8.2 [facility] Sodium [Moles/Vol] 138 mmol/L 136-145 [facility] INR in Blood by Coagulation assayOrdered By: Dr. Benton on 04-26-2023 INR Coag (Bld) [Relative time] 0.9 {INR} [facility] Laboratory - Chemistry and C hemistry - challengeOrdered By: Dr. Benton on 04-26-2023 ALP [Catalytic activity/Vol] 109 U/L 45-117 [facility] ALT [Catalytic activity/Vol] 26 U/L 13-56 [facility] CO2 [Moles/Vol] 27.0 mmol/L 21.0-32.0 [facility] Globulin (S) [Mass/Vol] 3.6 g/dL 2.2-4.2 [facility] Urea nitrogen/Creatinine [Mass ratio] 26.9 mg/mg 10-20 [facility] Laboratory - CoagulationOrde red By: Dr. Benton on 04-26-2023 PT Coag (PPP) [Time] 12.5 s 11.7-14.9 [facility] No Panel InformationOrdered By: Dr. Benton on 04-26-2023 Estimated GFR (MDRD) Amer 73 mL/min >60 [facility] Comment on above: GFR Calc Estimated GFR (MDRD) Non-Af Amer 61 mL/min >60 [facility] Comment on above: Non- GFR Calc Serum or plasma albumin stefania urement (mass/volume)Ordered By: Dr. Benton on 04-26-2023 Albumin [Mass/Vol] 3.5 g/dL 3.2-5.0 [facility] Serum or plasma albumin/glob ulin mass ratioOrdered By: Dr. Benton on 04-26-2023 Albumin/Globulin [Mass ratio] 1.0 {ratio} 0.9-2.4 [facility] Serum or plasma calcium stefania urement (mass/volume)Ordered By: Dr. Benton on 04-26-2023 Calcium [Mass/Vol] 9.5 mg/dL 8.5-10.1 [facility] Serum or plasma creatinine m easurement (mass/volume)Ordered By: Dr. Benton on 04-26-2023 Creatinine [Mass/Vol] 0.97 mg/dL 0.55-1.02 [facility] Comment on above: The validity of the calculated GFR & GFRAA in patients over 70 years has not been determined. Clinical correlation is essential. Serum or plasma transthyreti n measurement (mass/volume)Ordered By: Dr. Benton on 04-26-2023 Prealbumin [Mass/Vol] 19.6 mg/dL 20.0-40.0 [facility] Serum or plasma urea nitroge n measurement (mass/volume)Ordered By: Dr. Benton on 04-26-2023 Urea nitrogen [Mass/Vol] 26 mg/dL 7-18 [facility] Thin prep Papanicolaou smear with manual screeningOrdered By: Dr. Benton on 04-26-2023 Thin prep Papanicolaou smear with manual screening 14 U/L 15-37 [facility] Thin prep Papanicolaou smear with manual screening 2 5-15 [facility] Absolute lymphocyte countOrd ered By: Dr. Garcia on 04-08-2023 Lymphocytes Auto (Unsp spec) [#/Vol] 1.45 10*3/uL 0.83-4.51 [facility] Basophil percentageOrdered B y: Dr. Garcia on 04-08-2023 Basophils/100 WBC (Bld) 0.7 % 0-1 W [facility] Chloride [Moles/Vol] 105 mmol/L 98-107 [facility] Eosinophils/100 WBC (Bld) 1.5 % 0-5 [facility] Glucose [Mass/Vol] 96 mg/dL 74-106 [facility] Neutrophils (Bld) [#/Vol] 5.3 10*3/uL 2.0-7.7 [facility] Neutrophils/100 WBC (Bld) 70.5 % 47-70 [facility] Potassium [Moles/Vol] 3.8 mmol/L 3.5-5.1 [facility] Sodium [Moles/Vol] 141 mmol/L 136-145 [facility] WBC (Bld) [#/Vol] 7.6 10*3/uL 4.4-11.0 [facility] Blood erythrocytes count (nu mber/volume)Ordered By: Dr. Garcia on 04-08-2023 RBC (Bld) [#/Vol] 5.14 10*6/uL 4.2-5.4 [facility] Blood hemoglobin measurement (mass/volume)Ordered By: Dr. Garcia on 04-08-2023 Hemoglobin (Bld) [Mass/Vol] 15.1 g/dL 12.0-15.0 [facility] Blood lymphocytes/100 leukoc ytesOrdered By: Dr. Garcia on 04-08-2023 Lymphocytes/100 WBC (Bld) 19.2 % 19-41 [facility] Blood monocytes/100 leukocyt esOrdered By: Dr. Garcia on 04-08-2023 Monocytes/100 WBC (Bld) 7.7 % 0-10 W [facility] Blood platelet mean volumeOr dered By: Dr. Garcia on 04-08-2023 Platelet mean volume (Bld) [Entitic vol] 10.2 fL 6.2-12.0 [facility] Determination of erythrocyte mean corpuscular volume (MCV)Ordered By: Dr. Garcia on 04-08-2023 MCV (RBC) [Entitic vol] 89.1 fL 81-99 W [facility] Hematocrit Auto (Bld) [Volum e fraction]Ordered By: Dr. Garcia on 04-08-2023 Hematocrit (Bld) [Volume fraction] 45.8 % 37-47 [facility] Laboratory - Chemistry and C hemistry - challengeOrdered By: Dr. Garcia on 04-08-2023 CO2 [Moles/Vol] 29.0 mmol/L 21.0-32.0 [facility] Urea nitrogen/Creatinine [Mass ratio] 24.0 mg/mg 10-20 [facility] Laboratory - Hematology and Cell countsOrdered By: Dr. Garcia on 04-08-2023 Erythrocyte distribution width (RBC) [Entitic vol] 46.6 fL 35.1-43.9 [facility] Erythrocyte distribution width (RBC) [Ratio] 14.4 % 11.6-14.6 [facility] Immature granulocytes/100 WBC (Bld) 0.400 % 0.0-0.9 [facility] [facility] Comment on above: IG% - Immature Granu locytes (promyelocytes, myelocytes and metamyelocytes) > 1% indicates that a LEFT SHIFT is Present. MCH (RBC) [Entitic mass] 29.4 pg 27.0-32.0 [facility] Nucleated RBC/100 WBC (Bld) [Ratio] 0 % 0-5 [facility] MCHC Auto (RBC) [Mass/Vol]Or dered By: Dr. Garcia on 04-08-2023 MCHC (RBC) [Mass/Vol] 33.0 g/dL 32-36 [facility] No Panel InformationOrdered By: Dr. Garcia on 04-08-2023 Troponin I High Sensitivity 9 pg/mL 3.0-54.0 [facility] Comment on above: Please Note: New Kim t Units and Gender Specific Reference Ranges. For more information see Policy Stat Procedure [place] High Sensitivity Troponin (TNIH) and attachments. Estimated Creatinine Clearance Calc 50.23 ml/min [facility] Estimated GFR (MDRD) Amer 83 mL/min >60 [facility] Comment on above: GFR Calc Estimated GFR (MDRD) Non-Af Amer 68 mL/min >60 [facility] Comment on above: Non- GFR Calc Platelets bldOrdered By: Dr. Garcia on 04-08-2023 Platelets (Bld) [#/Vol] 171 10*3/uL 150-450 [facility] Serum or plasma calcium stefania urement (mass/volume)Ordered By: Dr. Garcia on 04-08-2023 Calcium [Mass/Vol] 9.6 mg/dL 8.5-10.1 [facility] Serum or plasma creatinine m easurement (mass/volume)Ordered By: Dr. Garcia on 04-08-2023 Creatinine [Mass/Vol] 0.88 mg/dL 0.55-1.02 [facility] Comment on above: The validity of the calculated GFR & GFRAA in patients over 70 years has not been determined. Clinical correlation is essential. Serum or plasma urea nitroge n measurement (mass/volume)Ordered By: Dr. Garcia on 04-08-2023 Urea nitrogen [Mass/Vol] 21 mg/dL 7-18 [facility] Thin prep Papanicolaou smear with manual screeningOrdered By: Dr. Garcia on 04-08-2023 Thin prep Papanicolaou smear with manual screening 7 5-15 [facility] Culture, urineOrdered By: Dr Hero Campbell on 04-01-2023 Bacteria identified Cx Nom (U) Positive [facility] Basophil percentageOrdered B y: Dr. Campbell on 03-31-2023 Basophil percentage 0 SEEN /hpf 0-5 [facility] Bilirubin Test strip Ql (U)O rdered By: Dr. Campbell on 03-31-2023 Bilirubin Ql (U) Negative Negative [facility] Ketones Test strip Ql (U)Ord ered By: Dr. Campbell on 03-31-2023 Ketones Ql (U) Negative Negative [facility] Mucus LM Ql (Urine sed)Order ed By: Dr. Campbell on 03-31-2023 Mucus Ql (Urine sed) 0 SEEN /hpf [facility] Nitrite Test strip Ql (U)Ord ered By: Dr. Campbell on 03-31-2023 Nitrite Ql (U) Negative Negative [facility] Protein Test strip Ql (U)Ord ered By: Dr. Campbell on 03-31-2023 Protein Ql (U) Negative Negative [facility] Squamous epithelial cells de tection in urine sediment by light microscopyOrdered By: Dr. Campbell on 03-31-2023 Epithelial cells.squamous LM Ql (Urine sed) 5-10 SEEN /hpf 5-10 [facility] Urine blood detectionOrdered By: Dr. Campbell on 03-31-2023 RBC Ql (U) Negative Negative [facility] RBC Ql (U) 0 SEEN /hpf 0-5 [facility] Urine clarityOrdered By: Dr. Campbell on 03-31-2023 Clarity (U) Clear Clear [facility] Urine color determinationOrd ered By: Dr. Campbell on 03-31-2023 Color (U) Yellow Yellow [facility] Urine glucose detectionOrder ed By: Dr. Campbell on 03-31-2023 Glucose Ql (U) Normal mg/dl Normal [facility] Urine leukocyte esterase det ection by dipstickOrdered By: Dr. Campbell on 03-31-2023 Leukocyte esterase Test strip Ql (U) Negative Negative [facility] Urine pHOrdered By: Dr. Campbell o n 03-31-2023 pH (U) 6.0 [pH] 5.0 - 8.0 [facility] Urine sediment bacteria coun t by microscopy (number/high power field)Ordered By: Dr. Campbell on 03-31-2023 Bacteria LM.HPF (Urine sed) [#/Area] 1 /[HPF] None Seen [facility] Urine specific gravity measu rementOrdered By: Dr. Campbell on 03-31-2023 Specific gravity (U) [Rel density] 1.010 1.002-1.03 0 [facility] Urobilinogen Auto test strip Ql (U)Ordered By: Dr. Campbell on 03-31-2023 Urobilinogen Ql (U) Normal mg/dl Normal [facility] LABORATORYOrdered By: SYSTEM SYSTEM on 11-09-2022 Basophils [...] Invalid Interpretation Code 0.50 - 1.20 mg/dL AH ADM SS Electrolyte Balance 5.0 mEq/L Invalid [...] rate/Area] ml/min/1.73sqm Invalid Interpretation Code Chemistry S GFR/1.73 sq M.predicted among non-blacks MDRD (S/P/Bld) [Vol rate/Area] ml/min/1.73sqm Invalid Interpretation Code Chemistry S Glucose [Mass/Vol] 98 mg/dL Invalid Interpretation Code 82 - 115 mg/dL ADM SS Hematocrit (Bld) [Volume fraction] 44.6 [...] Invalid Interpretation Code 2.3 - 8.1 10^3/mcL Workflow SS Neutrophils/100 WBC (Bld) 69.4 % Invalid Interpretation Code 50.0 - 75.0 % Workflow SS Platelet mean volume (Bld) [Entitic vol] 8.1 fL Invalid Interpretation Code 6.6 - 10.5 fL Workflow SS Platelets (Bld) [#/Vol] 167 103/mcL Invalid Interpretation Code 150 - 450 10^3/mcL Workflow SS Potassium [Moles/Vol] 4.4 mmol/L Invalid Interpretation Code 3.5 - 5.0 mEq/L ADM SS RBC (Bld) [#/Vol] 5.11 106/mcL Invalid Interpretation Code 4.10 - 5.30 10^6/mcL Workflow SS Sodium [Moles/Vol] 144 mmol/L Invalid Interpretation Code 136 - 145 mEq/L ADM SS Urea nitrogen [Mass/Vol] 19.0 mg/dL Invalid Interpretation Code 8.0 - 22.0 mg/dL ADM SS Urea nitrogen/Creatinine [Mass ratio] 24.4 ratio Invalid Interpretation Code 10.0 - 22.0 ratio ADM SS WBC (Bld) [#/Vol] 6.4 103/mcL Invalid Interpretation Code 4.5 - 10.8 10^3/mcL Workflow SS Absolute lymphocyte countOrd ered By: Dr. Benton on 10-20-2022 Lymphocytes Auto (Unsp spec) [#/Vol] 1.75 10*3/uL 0.83-4.51 [facility] Basophil percentageOrdered B y: Dr. Benton on 10-20-2022 Basophil percentage < 0.2 AI 0.0-0.9 [facility] Basophils/100 WBC (Bld) 1.0 % 0-1 W [facility] Bilirubin [Mass/Vol] 0.70 mg/dL 0.20-1.00 [facility] Comment on above: For patients on eltr ombopag therapy, use of Dimension [place] TBIL is not recommended. Chloride [Moles/Vol] 107 mmol/L 98-107 [facility] Eosinophils/100 WBC (Bld) 1.8 % 0-5 [facility] Glucose [Mass/Vol] 89 mg/dL 74-106 [facility] Neutrophils (Bld) [#/Vol] 5.8 10*3/uL 2.0-7.7 [facility] Neutrophils/100 WBC (Bld) 68.4 % 47-70 [facility] Potassium [Moles/Vol] 4.2 mmol/L 3.5-5.1 [facility] Protein [Mass/Vol] 7.0 g/dL 6.4-8.2 [facility] Sodium [Moles/Vol] 140 mmol/L 136-145 [facility] WBC (Bld) [#/Vol] 8.4 10*3/uL 4.4-11.0 [facility] Blood erythrocytes count (nu mber/volume)Ordered By: Dr. Benton on 10-20-2022 RBC (Bld) [#/Vol] 5.49 10*6/uL 4.2-5.4 [facility] Blood hemoglobin measurement (mass/volume)Ordered By: Dr. Benton on 10-20-2022 Hemoglobin (Bld) [Mass/Vol] 15.6 g/dL 12.0-15.0 [facility] Blood lymphocytes/100 leukoc ytesOrdered By: Dr. Benton on 10-20-2022 Lymphocytes/100 WBC (Bld) 20.8 % 19-41 [facility] Blood monocytes/100 leukocyt esOrdered By: Dr. Benton on 10-20-2022 Monocytes/100 WBC (Bld) 7.5 % 0-10 W [facility] Blood platelet mean volumeOr dered By: Dr. Benton on 10-20-2022 Platelet mean volume (Bld) [Entitic vol] 10.1 fL 6.2-12.0 [facility] Determination of erythrocyte mean corpuscular volume (MCV)Ordered By: Dr. Benton on 10-20-2022 MCV (RBC) [Entitic vol] 87.8 fL 81-99 W [facility] Erythrocyte sedimentation ra teOrdered By: Dr. Benton on 10-20-2022 ESR (Bld) [Velocity] 19 mm/h 0-30 [facility] Hematocrit Auto (Bld) [Volum e fraction]Ordered By: Dr. Benton on 10-20-2022 Hematocrit (Bld) [Volume fraction] 48.2 % 37-47 [facility] Laboratory - Chemistry and C hemistry - challengeOrdered By: Dr. Benton on 10-20-2022 ALP [Catalytic activity/Vol] 126 U/L 45-117 [facility] ALT [Catalytic activity/Vol] 18 U/L 13-56 [facility] Amylase [Catalytic activity/Vol] 22 U/L 5-55 [facility] CO2 [Moles/Vol] 28.0 mmol/L 21.0-32.0 [facility] Free T4 [Mass/Vol] 1.41 ng/dL 0.76-1.46 [facility] Globulin (S) [Mass/Vol] 3.1 g/dL 2.2-4.2 W [facility] Lipase [Catalytic activity/Vol] 88 U/L 73-393 [facility] Urea nitrogen/Creatinine [Mass ratio] 20.8 mg/mg 10-20 [facility] Laboratory - Hematology and Cell countsOrdered By: Dr. Benton on 10-20-2022 Erythrocyte distribution width (RBC) [Entitic vol] 47.9 fL 35.1-43.9 [facility] Erythrocyte distribution width (RBC) [Ratio] 14.9 % 11.6-14.6 [facility] Immature granulocytes/100 WBC (Bld) 0.500 % 0.0-0.9 [facility] Comment on above: IG% - Immature Granu locytes (promyelocytes, myelocytes and metamyelocytes) > 1% indicates that a LEFT SHIFT is Present. MCH (RBC) [Entitic mass] 28.4 pg 27.0-32.0 [facility] Nucleated RBC/100 WBC (Bld) [Ratio] 0 % 0-5 [facility] MCHC Auto (RBC) [Mass/Vol]Or dered By: Dr. Benton on 10-20-2022 MCHC (RBC) [Mass/Vol] 32.4 g/dL 32-36 [facility] No Panel InformationOrdered By: Dr. Benton on 10-20-2022 Centromere B Antibody <0.2 AI 0.0-0.9 [facility] Estimated GFR (MDRD) Amer 96 mL/min >60 [facility] Comment on above: GFR Calc Estimated GFR (MDRD) Non-Af Amer 79 mL/min >60 [facility] Comment on above: Non- GFR Calc FIBER HEEL PIECE SHAPER Antibody <0.2 AI 0.0-0.9 [facility] Thyroid Stimulating Hormone (TSH) 1.66 uIU/mL 0.358-3.74 [facility] Vitamin D 25-Hydroxy 59.8 ng/mL [facility] Comment on above: Vitamin D 25(OH) Sta tus Range Deficiency <20 ng/mL (50nmol/L) Insufficiency 20 - 30 ng/mL (50 - 75 nmol/L) Sufficiency 30 - 100 ng/mL (75 - 250 nmol/L) Toxicity >100 ng/mL (>250 nmol/L) Platelets bldOrdered By: Dr. Benton on 10-20-2022 Platelets (Bld) [#/Vol] 197 10*3/uL 150-450 [facility] Serum DNA double strand anti body assay (units/volume)Ordered By: Dr. Benton on 10-20-2022 DNA double strand Ab Qn (S) [IU]/mL 0-9 [facility] Comment on above: Negative <5 Equivoca l 5 - 9 Positive >9 Serum Myrtle-1 antibody assay (u nits/volume)Ordered By: Dr. Benton on 10-20-2022 Myrtle-1 extractable nuclear Ab Qn (S) <0.2 AI 0.0-0.9 [facility] Serum Scl-70 extractable nuc lear antibody assay (units/volume)Ordered By: Dr. Benton on 10-20-2022 SCL-70 extractable nuclear Ab Qn (S) 0.2 AI 0.0-0.9 [facility] Serum Benton extractable nucl ear antibody detectionOrdered By: Dr. Benton on 10-20-2022 Esperanza extractable nuclear Ab Ql (S) <0.2 AI 0.0-0.9 [facility] Serum or plasma C reactive p rotein measurement (mass/volume)Ordered By: Dr. Benton on 10-20-2022 CRP [Mass/Vol] mg/L 0.0-3.0 [facility] Comment on above: C-Reactive Protein ( CRP) provides useful information for thediagnosis, therapy and monitoring of inflammatory processesand associated diseases. For the evaluation of Relative Riskfor Cardiovascular Disease, a High Sensitivity CRP (HSCRP)should be ordered. Serum or plasma albumin stefania urement (mass/volume)Ordered By: Dr. Benton on 10-20-2022 Albumin [Mass/Vol] 3.9 g/dL 3.2-5.0 [facility] Serum or plasma albumin/glob ulin mass ratioOrdered By: Dr. Benton on 10-20-2022 Albumin/Globulin [Mass ratio] 1.3 {ratio} 0.9-2.4 [facility] Serum or plasma calcium stefania urement (mass/volume)Ordered By: Dr. Benton on 10-20-2022 Calcium [Mass/Vol] 9.2 mg/dL 8.5-10.1 [facility] Serum or plasma creatinine m easurement (mass/volume)Ordered By: Dr. Benton on 10-20-2022 Creatinine [Mass/Vol] 0.77 mg/dL 0.55-1.02 [facility] Comment on above: The validity of the calculated GFR & GFRAA in patients over 70 years has not been determined. Clinical correlation is essential. Serum or plasma urea nitroge n measurement (mass/volume)Ordered By: Dr. Benton on 10-20-2022 Urea nitrogen [Mass/Vol] 16 mg/dL 7-18 [facility] Serum rheumatoid factor dete ctionOrdered By: Dr. Benton on 10-20-2022 Rheumatoid factor Ql (S) < 10.0 IU/mL <15 [facility] Thin prep Papanicolaou smear with manual screeningOrdered By: Dr. Benton on 10-20-2022 Thin prep Papanicolaou smear with manual screening 14 U/L 15-37 [facility] Thin prep Papanicolaou smear with manual screening 5 5-15 [facility] No Panel Informationon 05-02 Estimated GFR (MDRD) Amer 77 mL/min >60 [facility] Work Phone: Comment on above: GFR Calc Estimated GFR (MDRD) Non-Af Amer 63 mL/min >60 [facility] Work Phone: Comment on above: Non- GFR Calc Serum or plasma creatinine m easurement (mass/volume)on 05-02-2022 Creatinine [Mass/Vol] 0.94 mg/dL 0.55-1.02 [facility] Work Phone: Comment on above: The validity of the calculated GFR & GFRAA in patients over 70 years has not been determined. Clinical correlation is essential. Serum or plasma urea nitroge n measurement (mass/volume)on 05-02-2022 Urea nitrogen [Mass/Vol] 11 mg/dL 7-18 [facility] Work Phone: Absolute lymphocyte counton 02-20-2022 Lymphocytes Auto (Unsp spec) [#/Vol] 1.50 10*3/uL 0.83-4.51 [facility] Work Phone: Basophil percentageon 2021 Basophils/100 WBC (Bld) 0.3 % 0-1 W [facility] Work Phone: Bilirubin [Mass/Vol] 0.20 mg/dL 0.20-1.00 [facility] Work Phone: Comment on above: For patients on eltr ombopag therapy, use of Dimension [place] TBIL is not recommended. Chloride [Moles/Vol] 107 mmol/L 98-107 [facility] Work Phone: Eosinophils/100 WBC (Bld) 0.8 % 0-5 [facility] Work Phone: Glucose [Mass/Vol] 97 mg/dL 74-106 [facility] Work Phone: Neutrophils (Bld) [#/Vol] 4.0 10*3/uL 2.0-7.7 [facility] Work Phone: Neutrophils/100 WBC (Bld) 65.5 % 47-70 [facility] Work Phone: Potassium [Moles/Vol] 3.5 mmol/L 3.5-5.1 [facility] Work Phone: Protein [Mass/Vol] 6.5 g/dL 6.4-8.2 [facility] Work Phone: Sodium [Moles/Vol] 142 mmol/L 136-145 [facility] Work Phone: WBC (Bld) [#/Vol] 6.2 10*3/uL 4.4-11.0 [facility]: Blood erythrocytes count (nu mber/volume)on 02-20-2022 RBC (Bld) [#/Vol] 4.80 10*6/uL 4.2-5.4 [facility] Work Phone: Blood hemoglobin measurement (mass/volume)on 02-20-2022 Hemoglobin (Bld) [Mass/Vol] 14.1 g/dL 12.0-15.0 [facility] Work Phone: Blood lymphocytes/100 leukoc yteson 02-20-2022 Lymphocytes/100 WBC (Bld) 24.4 % 19-41 [facility] Work Phone: Blood monocytes/100 leukocyt eson 02-20-2022 Monocytes/100 WBC (Bld) 8.3 % 0-10 W [facility] Work Phone: Blood platelet mean volumeon 02-20-2022 Platelet mean volume (Bld) [Entitic vol] 10.0 fL 6.2-12.0 [facility] Work Phone: Determination of erythrocyte mean corpuscular volume (MCV)on 02-20-2022 MCV (RBC) [Entitic vol] 90.6 fL 81-99 W [facility] Work Phone: Direct bilirubinon 2 Bilirubin.direct [Mass/Vol] 0.10 mg/dL 0.00-0.30 [facility] Work Phone: Hematocrit Auto (Bld) [Volum e fraction]on 02-20-2022 Hematocrit (Bld) [Volume fraction] 43.5 % 37-47 [facility] Work Phone: INR in Blood by Coagulation assayon 02-20-2022 INR Coag (Bld) [Relative time] 1.0 {INR} [facility] Work Phone: Laboratory - Chemistry and C hemistry - challengeon 02-20-2022 ALP [Catalytic activity/Vol] 97 U/L 45-117 [facility] Work Phone: ALT [Catalytic activity/Vol] 18 U/L 13-56 [facility] Work Phone: CO2 [Moles/Vol] 30.0 mmol/L 21.0-32.0 [facility] Work Phone: Globulin (S) [Mass/Vol] 3.2 g/dL 2.2-4.2 W [facility] Work Phone: Lipase [Catalytic activity/Vol] 38 U/L 73-393 [facility] Work Phone: Urea nitrogen/Creatinine [Mass ratio] 17.8 mg/mg 10-20 [facility] Work Phone: Laboratory - Coagulationon 0 02-20-2022 PT Coag (PPP) [Time] 12.3 s 11.7-14.9 [facility] Work Phone: Laboratory - Hematology and Cell countson 02-20-2022 Erythrocyte distribution width (RBC) [Entitic vol] 45.6 fL 35.1-43.9 [facility] Work Phone: Erythrocyte distribution width (RBC) [Ratio] 13.7 % 11.6-14.6 [facility] Work Phone: Immature granulocytes/100 WBC (Bld) 0.700 % 0.0-0.9 [facility] Work Phone: Comment on above: IG% - Immature Granu locytes (promyelocytes, myelocytes and metamyelocytes) > 1% indicates that a LEFT SHIFT is Present. MCH (RBC) [Entitic mass] 29.4 pg 27.0-32.0 [facility] Work Phone: Nucleated RBC/100 WBC (Bld) [Ratio] 0 % 0-5 [facility] Work Phone: MCHC Auto (RBC) [Mass/Vol]on 02-20-2022 MCHC (RBC) [Mass/Vol] 32.4 g/dL 32-[address] [facility] Work Phone: No Panel Informationon 02-20 Estimated Creatinine Clearance Calc 59.57 ml/min [facility] Work Phone: Estimated GFR (MDRD) Amer 86 mL/min >60 [facility] Work Phone: Comment on above: GFR Calc Estimated GFR (MDRD) Non-Af Amer 71 mL/min >60 [facility] Work Phone: Comment on above: Non- GFR Calc Troponin I High Sensitivity 4 pg/mL 3.0-54.0 [facility] Work Phone: Comment on above: Please Note: New Kim t Units and Gender Specific Reference Ranges. For more information see Policy Stat Procedure [place] High Sensitivity Troponin (TNIH) and attachments. Platelets bldon 02-20-2022 Platelets (Bld) [#/Vol] 171 10*3/uL 150-450 [facility] Work Phone: Serum or plasma albumin stefania urement (mass/volume)on 02-20-2022 Albumin [Mass/Vol] 3.3 g/dL 3.2-5.0 [facility] Work Phone: Serum or plasma calcium stefania urement (mass/volume)on 02-20-2022 Calcium [Mass/Vol] 8.7 mg/dL 8.5-10.1 [facility] Work Phone: Serum or plasma creatinine m easurement (mass/volume)on 02-20-2022 Creatinine [Mass/Vol] 0.84 mg/dL 0.55-1.02 [facility] Work Phone: Comment on above: The validity of the calculated GFR & GFRAA in patients over 70 years has not been determined. Clinical correlation is essential. Serum or plasma urea nitroge n measurement (mass/volume)on 02-20-2022 Urea nitrogen [Mass/Vol] 15 mg/dL 7-18 [facility] Work Phone: Thin prep Papanicolaou smear with manual screeningon 02-20-2022 Thin prep Papanicolaou smear with manual screening 11 U/L 15-37 [facility] Work Phone: Thin prep Papanicolaou smear with manual screening 5 5-15 [facility] Work Phone: Absolute lymphocyte counton 02-18-2022 Lymphocytes Auto (Unsp spec) [#/Vol] 1.64 10*3/uL 0.83-4.51 [facility] Work Phone: Basophil percentageon 2021 Basophils/100 WBC (Bld) 0.9 % 0-1 W [facility] Work Phone: Chloride [Moles/Vol] 108 mmol/L 98-[address] [facility] [facility] [address] [facility] Work Phone: Eosinophils/100 WBC (Bld) 3.1 % 0-5 [facility] Work Phone: Glucose [Mass/Vol] 112 mg/dL 74-106 [facility] Work Phone: Comment on above: Fasting Glucose resu lt from 100 to 125 mg/dL suggests IMPAIRED HOMEOSTASIS per A.D.A. criteria. Neutrophils (Bld) [#/Vol] 3.8 10*3/uL 2.0-7.7 [facility] Work Phone: Neutrophils/100 WBC (Bld) 58.7 % 47-70 [facility] Work Phone: Potassium [Moles/Vol] 3.6 mmol/L 3.5-5.1 [facility] Work Phone: Sodium [Moles/Vol] 141 mmol/L 136-145 [facility] Work Phone: WBC (Bld) [#/Vol] 6.4 10*3/uL 4.4-11.0 [facility] Work Phone: [phone] Blood erythrocytes count (nu mber/volume)on 02-18-2022 RBC (Bld) [#/Vol] 5.18 10*6/uL 4.2-5.4 [facility] Work Phone: [phone] Blood hemoglobin measurement (mass/volume)on 02-18-2022 Hemoglobin (Bld) [Mass/Vol] 15.0 g/dL 12.0-15.0 [facility] Work Phone: Blood lymphocytes/100 leukoc yteson 02-18-2022 Lymphocytes/100 WBC (Bld) 25.5 % 19-41 [facility] Work Phone: Blood monocytes/100 leukocyt eson 02-18-2022 Monocytes/100 WBC (Bld) 11.2 % 0-10 W [facility] Work Phone: Blood platelet mean volumeon 02-18-2022 Platelet mean volume (Bld) [Entitic vol] 9.8 fL 6.2-12.0 [facility] Work Phone: Determination of erythrocyte mean corpuscular volume (MCV)on 02-18-2022 MCV (RBC) [Entitic vol] 88.2 fL 81-99 W [facility] Work Phone: Hematocrit Auto (Bld) [Volum e fraction]on 02-18-2022 Hematocrit (Bld) [Volume fraction] 45.7 % 37-47 [facility] Work Phone: INR in Blood by Coagulation assayon 02-18-2022 INR Coag (Bld) [Relative time] 1.0 {INR} [facility] Work Phone: Laboratory - Chemistry and C hemistry - challengeon 02-18-2022 CO2 [Moles/Vol] 29.0 mmol/L 21.0-32.0 [facility] Work Phone: Magnesium [Mass/Vol] 2.1 mg/dL 1.6-2.[address] [facility] [facility] Work Phone: Urea nitrogen/Creatinine [Mass ratio] 13.9 mg/mg 10-20 [facility] Work Phone: Laboratory - Coagulationon 0 02-18-2022 aPTT Coag (Bld) [Time] 28.9 s 24.1-36.2 [facility] Work Phone: PT Coag (PPP) [Time] 12.6 s 11.7-14.9 [facility] Work Phone: Laboratory - Hematology and Cell countson 02-18-2022 Erythrocyte distribution width (RBC) [Entitic vol] 43.7 fL 35.1-43.9 [facility] Work Phone: Erythrocyte distribution width (RBC) [Ratio] 13.5 % 11.6-14.6 [facility] Work Phone: Immature granulocytes/100 WBC (Bld) 0.600 % 0.0-0.9 [facility] Work Phone: Comment on above: IG% - Immature Granu locytes (promyelocytes, myelocytes and metamyelocytes) > 1% indicates that a LEFT SHIFT is Present. MCH (RBC) [Entitic mass] 29.0 pg 27.0-32.0 [facility] Work Phone: Nucleated RBC/100 WBC (Bld) [Ratio] 0 % 0-5 [facility] Work Phone: MCHC Auto (RBC) [Mass/Vol]on 02-18-2022 MCHC (RBC) [Mass/Vol] 32.8 g/dL 32-36 [facility] Work Phone: No Panel Informationon 02-18 Troponin I High Sensitivity 5 pg/mL 3.0-54.0 [facility] Work Phone: Comment on above: Please Note: New Kim t Units and Gender Specific Reference Ranges. For more information see Policy Stat Procedure [place] High Sensitivity Troponin (TNIH) and attachments. Estimated Creatinine Clearance Calc 51.11 ml/min [facility] Work Phone: Estimated GFR (MDRD) Amer 93 mL/min >60 [facility] Work Phone: Comment on above: GFR Calc Estimated GFR (MDRD) Non-Af Amer 77 mL/min >60 [facility] Work Phone: Comment on above: Non- GFR Calc Platelets bldon 02-18-2022 Platelets (Bld) [#/Vol] 207 10*3/uL 150-450 [facility] Work Phone: Serum or plasma calcium stefania urement (mass/volume)on 02-18-2022 Calcium [Mass/Vol] 8.8 mg/dL 8.5-10.1 [facility] Work Phone: Serum or plasma creatinine m easurement (mass/volume)on 02-18-2022 Creatinine [Mass/Vol] 0.79 mg/dL 0.55-1.02 [facility] Work Phone: Comment on above: The validity of the calculated GFR & GFRAA in patients over 70 years has not been determined. Clinical correlation is essential. Serum or plasma urea nitroge n measurement (mass/volume)on 02-18-2022 Urea nitrogen [Mass/Vol] 11 mg/dL 7-18 [facility] Work Phone: Thin prep Papanicolaou smear with manual screeningon 02-18-2022 Thin prep Papanicolaou smear with manual screening 4 5-15 [facility] Work Phone: Basophil percentageon 2021 Basophil percentage 4.4 mg/dL 2.5-4.9 [facility] Work Phone: Chloride [Moles/Vol] 106 mmol/L 98-107 [facility] Work Phone: Glucose [Mass/Vol] 92 mg/dL 74-106 [facility] Work Phone: Potassium [Moles/Vol] 3.9 mmol/L 3.5-5.1 [facility] Work Phone: Sodium [Moles/Vol] 141 mmol/L 136-145 [facility] Work Phone: WBC (Bld) [#/Vol] 7.7 10*3/uL 4.4-11.0 [facility] Work Phone: Blood erythrocytes count (nu mber/volume)on 01-18-2022 RBC (Bld) [#/Vol] 5.55 10*6/uL 4.2-5.4 [facility] Work Phone: Blood hemoglobin measurement (mass/volume)on 01-18-2022 Hemoglobin (Bld) [Mass/Vol] 16.9 g/dL 12.0-15.0 [facility] Work Phone: Blood platelet mean volumeon 01-18-2022 Platelet mean volume (Bld) [Entitic vol] 9.7 fL 6.2-12.0 [facility] Work Phone: Determination of erythrocyte mean corpuscular volume (MCV)on 01-18-2022 MCV (RBC) [Entitic vol] 90.5 fL 81-99 W [facility] Work Phone: Hematocrit Auto (Bld) [Volum e fraction]on 01-18-2022 Hematocrit (Bld) [Volume fraction] 50.2 % 37-47 [facility] Work Phone: Laboratory - Chemistry and C hemistry - challengeon 01-18-2022 CO2 [Moles/Vol] 31.0 mmol/L 21.0-32.0 [facility] Work Phone: Urea nitrogen/Creatinine [Mass ratio] 18.6 mg/mg 10-20 [facility] Work Phone: Laboratory - Hematology and Cell countson 01-18-2022 Erythrocyte distribution width (RBC) [Entitic vol] 46.6 fL 35.1-43.9 [facility] Work Phone: Erythrocyte distribution width (RBC) [Ratio] 13.8 % 11.6-14.6 [facility] Work Phone: MCH (RBC) [Entitic mass] 30.5 pg 27.0-32.0 [facility] Work Phone: MCHC Auto (RBC) [Mass/Vol]on 01-18-2022 MCHC (RBC) [Mass/Vol] 33.7 g/dL 32-36 [facility] Work Phone: No Panel Informationon 01-18 Estimated Creatinine Clearance Calc 50.37 ml/min [facility] Work Phone: [phone] Estimated GFR (MDRD) Amer 74 mL/min >60 [facility] Work Phone: Comment on above: GFR Calc Estimated GFR (MDRD) Non-Af Amer 61 mL/min >60 [facility] Work Phone: Comment on above: Non- GFR Calc Platelets bldon 01-18-2022 Platelets (Bld) [#/Vol] 233 10*3/uL 150-450 [facility] Work Phone: Serum or plasma albumin stefania urement (mass/volume)on 01-18-2022 Albumin [Mass/Vol] 3.6 g/dL 3.2-5.0 [facility] Work Phone: Serum or plasma calcium stefania urement (mass/volume)on 01-18-2022 Calcium [Mass/Vol] 9.2 mg/dL 8.5-10.1 [facility] Work Phone: Serum or plasma creatinine m easurement (mass/volume)on 01-18-2022 Creatinine [Mass/Vol] 0.97 mg/dL 0.55-1.02 [facility] Work Phone: Comment on above: The validity of the calculated GFR & GFRAA in patients over 70 years has not been determined. Clinical correlation is essential. Serum or plasma urea nitroge n measurement (mass/volume)on 01-18-2022 Urea nitrogen [Mass/Vol] 18 mg/dL 7-18 [facility] Work Phone: Basophil percentageon 2020 Creatinine [Mass/Vol] 0.8 mg/dL 0.55-1.02 [facility] Work Phone: No Panel Informationon 11-17 Bedside Estimated GFR (eGFR) > 60.0000 mL/min >60 [facility] Work Phone: MRI BRAIN WO/W IVCONon 04-12 MRI BRAIN WO/W IVCON * * *Final Report* * * DATE OF EXAM: Apr 12 2021 2:24PM [id number] - MRI BRAIN WO/W IVCON / [...] Improvement: None. New Enhancing Lesions: None T2 [place] of Disease: Mild. Parenchymal Volume Loss: None. [...] by greater than or equal to 2mm). Fountain Supervisor: PSCB Transcribe Date/Time: Apr 12 2021 2:27P Dictated by : MELIZA MOMIN MD This examination was interpreted and the report reviewed and electronically signed by: MELIZA MOMIN MD on Apr 12 2021 2:33PM EST [id number] Normal [facility] CNOVon 02-09-2021 CNOV [facility] ----- ANGÉLICA YO ([id number]) 1955 F Date Time Provider Department 02/09/21 3:00 PM MELI GORE [facility] During your visit today, we recorded [...] Comments: Heartburn PREDNISONE 12/15/2008 Comments: Destroyed bone. [id number] REDUCTASE INHIBIT*04/27/2011 5 - Intolerance TRICOR (FENOFIBRATE [...] by MELI GORE MD on 02/09/21 Normal [facility] XR Chest PA and Lateralon IMPRESSION: Trace linear atelectasis at the left base. Fountain Supervisor: CAROLINE Transcribe Date/Time: Nov 25 2020 3:18P Dictated by : JOHANA DEUTSCH MD This examination was interpreted and the report reviewed and electronically signed by: JOHANA DEUTSCH MD on Nov 25 2020 3:19PM [facility] DIVISION OF RADIOLOGY * * [...] the thoracic spine. DIVISION OF RADIOLOGY Provider, [facility] Bronson [facility] - 11/25/2020 * * *Final Report* * [...] Trace linear atelectasis at the left base. Fountain Supervisor: CAROLINE Transcribe Date/Time: Nov 25 2020 3:18P Dictated by : JOHANA DEUTSCH MD This examination was interpreted and the report reviewed and electronically signed by: JOHANA DEUTSCH MD on Nov 25 2020 3:19PM EST [facility] Radiology Study observation (narrative) Deangelo llanos [facility] XR Chest PA and LateralOrder ed By: [facility] Provider on 11-25-2020 [facility] PROGRESSon 12-22-2017 PROGRESS HNO ID: [id number] thor: Yogesh Hartley: (none)Author Type: PhysicianType: Progress [...] had no TIAs and at this point carrolle is stable from that perspective. At this [...] frances should continue her follow-up with Dr. Barnett as he seems to beprimarily managing these problems here in [place]. At this point in timeI tell her [...] visit, with more than50% of the total bmyi-nh-gmic time of the visit in counseling /coordination of care. Normal [facility] CNOVon 12-21-2017 CNOV Office Visit ([facility]) ANGÉLICA YO ([id number]) 1955 FDate Time Provider Department12/21/17 10:30 AM YOGESH ONOFRE During your visit [...] for to vascular surgeons to be following theme patient for the same issues I discussed with the patient the possibilitythat potentially she should continue her follow-up with Dr. Barnett as he seemsto be primarily managing these problems here in [place]. At this point in timeI tell her [...] with more than 50% of the total alox-um-atsmzkba of the visit in counseling / coordination of care.Referring Provider: ZHANE PARRA [[id number]]Allergies As of Date: 12/21/2017 Noted Allergy ReactionANTIHISTAMINES 04/28/2004 Comments: messes her head upASA (SALICYLATES) 12/04/2008CODEINE 04/28/2004 Comments: nauseaFENTANYL 02/19/2012 14 - Other: See Comments Comments: Sweating/ FlushingMORPHINE 04/28/2004 Comments: nausea and vomitingPLAVIX (CLOPIDOGREL BISULFATE) 12/18/2011 14 - Other: See Comments Comments: HeartburnPREDNISONE 12/15/2008 Comments: Destroyed bone.NEBNRIN-PCC-AOH REDUCTASE INHIBIT*04/27/2011 5 - IntoleranceTRICOR (FENOFIBRATE MICRONIZED) [...] vascular occlusive disease (HCC) [I7*Letter TextEncounter Number: [id number] Status:Closed by YOGESH ONOFRE MD on 12/22/17 [facility] Vital Signs Date Time Vital Sign Value Performing Clinician [facility] 05-19-2025 23:37-0400 Body temperature 97.8 [degF] Dr. Daron Benton MD Work Phone: [facility] 05-19-2025 23:37-0400 Diastolic blood pressure 61 mm[Hg] Dr. Daron Benton MD Work Phone: [facility] 05-19-2025 23:37-0400 Heart rate 75 /min Dr. Daron Benton MD Work Phone: [facility] 05-19-2025 23:37-0400 Respiratory rate 16 /min Dr. Daron Benton MD Work Phone: [facility] 05-19-2025 23:37-0400 SaO2% (BldA) [Mass fraction] 96 % Dr. Daron Benton MD Work Phone: 3(602)766-519899 [place] [address] 05-19-2025 23:37-0400 Systolic blood pressure 138 mm[Hg] Dr. Daron Bneton MD Work Phone: 3(500)480-156682 [place] [address] 05-19-2025 22:26-0400 Body mass index (BMI) [Ratio] 17.8 kg/m2 Dr. Daron Benton MD Work Phone: 7(275)326-243182 [place] [address] 05-19-2025 22:26-0400 Body weight [address] Daron Benton MD Work Phone: 4(640)024-100882 [place] [address] 05-19-2025 20:46-0400 Body height 167.[address] Daron Benton MD Work Phone: 5(809)347-652882 [place] [address] 05-06-2025 14:44-0400 Body height 165.[address] Daron Benton MD Work Phone: 9(344)558-404782 [place] [address] 05-06-2025 14:44-0400 Body mass index (BMI) [Ratio] 18.3 kg/m2 Dr. Daron Benton MD Work Phone: 7(002)826-904582 [place] [address] 05-06-2025 14:44-0400 Body temperature 97.5 [degF] Dr. Daron Benton MD Work Phone: 2(137)325-538682 [place] [address] 05-06-2025 14:44-0400 Body weight 49.[address] Daron Benton MD Work Phone: 7(213)690-733182 [place] [address] 05-06-2025 14:44-0400 Diastolic blood pressure 79 mm[Hg] Dr. Daron Benton MD Work Phone: 3(879)448-253582 [place] [address] 05-06-2025 14:44-0400 Heart rate 74 /min Dr. Daron Benton MD Work Phone: 8(361)604-859782 [place] [address] 05-06-2025 14:44-0400 Respiratory rate 16 /min Dr. Daron Benton MD Work Phone: 5(066)763-584882 [place] [address] 05-06-2025 14:44-0400 SaO2% (BldA) [Mass fraction] 98 % Dr. Daron Benton MD Work Phone: 2(542)393-055399 [place] [address] 05-06-2025 14:44-0400 Systolic blood pressure 163 mm[Hg] Dr. Daron Benton MD Work Phone: 2(981)519-329482 [place] [address] 04-22-2025 14:14-0400 Body temperature 97.7 [degF] Dr. Daron Benton MD Work Phone: 0(159)154-956482 [place] [address] 04-22-2025 14:14-0400 Diastolic blood pressure 74 mm[Hg] Dr. Daron Benton MD Work Phone: 4(761)280-595482 [place] [address] 04-22-2025 14:14-0400 Heart rate 124 /min Dr. Darno Benton MD Work Phone: 3(060)686-330982 [place] [address] 04-22-2025 14:14-0400 Respiratory rate 18 /min Dr. Daron Benton MD Work Phone: 4(259)697-676882 [place] [address] 04-22-2025 14:14-0400 SaO2% (BldA) [Mass fraction] 94 % Dr. Daron Benton MD Work Phone: 5(466)937-222182 [place] [address] 04-22-2025 14:14-0400 Systolic blood pressure 101 mm[Hg] Dr. Daron Benton MD Work Phone: 5(755)177-224582 [place] [address] 04-21-2025 15:30-0400 Body height 165.[address] Daron Benton MD Work Phone: 4(226)624-909482 [place] [address] 04-21-2025 15:30-0400 Body mass index (BMI) [Ratio] 16.7 kg/m2 Dr. Daron Benton MD Work Phone: 3(381)979-710882 [place] [address] 04-21-2025 15:30-0400 Body weight 45.[address] Daron Benton MD Work Phone: 4(114)732-495682 [place] [address] 04-18-2025 21:23-0400 Body temperature 98.9 [degF] Dr. Daron Benton MD Work Phone: 2(769)047-256182 [place] [address] 04-18-2025 21:23-0400 Diastolic blood pressure 79 mm[Hg] Dr. Daron Benton MD Work Phone: 2(462)966-121399 [place] [address] 04-18-2025 21:23-0400 Heart rate 62 /min Dr. Daron Benton MD Work Phone: 3(046)287-871882 [place] [address] 04-18-2025 21:23-0400 Respiratory rate 21 /min Dr. Daron Benton MD Work Phone: 7(370)626-237682 [place] [address] 04-18-2025 21:23-0400 SaO2% (BldA) [Mass fraction] 100 % Dr. Daron Benton MD Work Phone: 7(636)115-420682 [place] [address] 04-18-2025 21:23-0400 Systolic blood pressure 141 mm[Hg] Dr. Daron Benton MD Work Phone: 0(232)522-854382 [place] [address] 04-18-2025 18:17-0400 Body height 165.[address] Daron Benton MD Work Phone: 5(534)440-188482 [place] [address] 04-18-2025 18:17-0400 Body mass index (BMI) [Ratio] 16.9 kg/m2 Dr. Daron Benton MD Work Phone: 8(448)537-475482 [place] [address] 04-18-2025 18:17-0400 Body weight 46.[address] Daron Benton MD Work Phone: 9(933)647-652682 [place] [address] 04-18-2025 01:13-0400 Body temperature 97.7 [degF] Dr. Daron Benton MD Work Phone: 4(909)686-829182 [place] [address] 04-18-2025 01:13-0400 Diastolic blood pressure 68 mm[Hg] Dr. Daron Benton MD Work Phone: 3(999)974-720182 [place] [address] 04-18-2025 01:13-0400 Heart rate 68 /min Dr. Daron Benton MD Work Phone: 6(725)740-119782 [place] [address] 04-18-2025 01:13-0400 Respiratory rate 16 /min Dr. Daron Benton MD Work Phone: 5(141)564-857282 [place] [address] 04-18-2025 01:13-0400 SaO2% (BldA) [Mass fraction] 100 % Dr. Daron Benton MD Work Phone: 5(943)305-349899 [place] [address] 04-18-2025 01:13-0400 Systolic blood pressure 130 mm[Hg] Dr. Daron Benton MD Work Phone: 3(617)245-884982 [place] [address] 04-17-2025 22:17-0400 Body height 165.[address] Daron Benton MD Work Phone: 8(908)526-308982 [place] [address] 04-17-2025 22:17-0400 Body mass index (BMI) [Ratio] 16.9 kg/m2 Dr. Daron Benton MD Work Phone: 8(868)218-906982 [place] [address] 04-17-2025 22:17-0400 Body weight 46.[address] Daron Benton MD Work Phone: 5(623)035-215282 [place] [address] 04-11-2025 16:10-0400 Body temperature 97.6 [degF] Dr. Daron Benton MD Work Phone: 5(553)843-957582 [place] [address] 04-11-2025 16:10-0400 Diastolic blood pressure 67 mm[Hg] Dr. Daron Benton MD Work Phone: 2(301)126-151982 [place] [address] 04-11-2025 16:10-0400 Heart rate 56 /min Dr. Daron Benton MD Work Phone: 2(292)234-163482 [place] [address] 04-11-2025 16:10-0400 Respiratory rate 18 /min Dr. Daron Benton MD Work Phone: 3(952)315-326582 [place] [address] 04-11-2025 16:10-0400 SaO2% (BldA) [Mass fraction] 100 % Dr. Daron Benton MD Work Phone: 8(151)483-848282 [place] [address] 04-11-2025 16:10-0400 Systolic blood pressure 124 mm[Hg] Dr. Daron Benton MD Work Phone: 6(005)085-363382 [place] [address] 04-11-2025 13:17-0400 Body mass index (BMI) [Ratio] 19.1 kg/m2 Dr. Daron Benton MD Work Phone: 1(115)320-863682 [place] [address] 04-11-2025 13:17-0400 Body weight 52.[address] Daron Benton MD Work Phone: [facility] 04-08-2025 15:20-0400 Diastolic blood pressure 88 mm[Hg] Lizz Lynn AUDIO VIDEO TECH - [employer] Work Phone: [facility] 04-08-2025 15:20-0400 Heart rate 70 /min Lizz Lynn AUDIO VIDEO TECH - [employer] Work Phone: [facility] 04-08-2025 15:20-0400 Systolic blood pressure 151 mm[Hg] Lizz Robert AUDIO VIDEO TECH - [employer] Work Phone: [facility] 04-08-2025 14:15-0400 Body height 167.6 cm Lizz Lynn AUDIO VIDEO TECH - [employer] Work Phone: [facility] 04-08-2025 14:15-0400 Body mass index (BMI) [Ratio] 17.53 kg/m2 Lizz Lynn AUDIO VIDEO TECH - [employer] Work Phone: [facility] 04-08-2025 14:15-0400 Body weight 49.26 kg Lizz Lynn AUDIO VIDEO TECH - [employer] Work Phone: [facility] 04-02-2025 22:25-0400 Body temperature 98.1 [degF] Dr. Daron Benton MD Work Phone: [facility] 04-02-2025 22:25-0400 Diastolic blood pressure 79 mm[Hg] Dr. Daron Benton MD Work Phone: [facility] 04-02-2025 22:25-0400 Heart rate 73 /min Dr. Daron Benton MD Work Phone: [facility] 04-02-2025 22:25-0400 Respiratory rate 18 /min Dr. Daron Benton MD Work Phone: [facility] 04-02-2025 22:25-0400 SaO2% (BldA) [Mass fraction] 100 % Dr. Daron Benton MD Work Phone: [facility] 04-02-2025 22:25-0400 Systolic blood pressure 105 mm[Hg] Dr. Daron Benton MD Work Phone: [facility] 04-02-2025 19:21-0400 Body height 165.[address] Daron Benton MD Work Phone: [facility] 04-02-2025 19:21-0400 Body mass index (BMI) [Ratio] 18.8 kg/m2 Dr. Daron Benton MD Work Phone: [facility] 04-02-2025 19:21-0400 Body weight 51.[address] Daron Benton MD Work Phone: [facility] 03-04-2025 10:31-0400 Body height 167.6 cm Lizz Lynn AUDIO VIDEO TECH - [employer] Work Phone: [facility] 03-04-2025 10:31-0400 Body mass index (BMI) [Ratio] 18.34 kg/m2 Lizz Lynn AUDIO VIDEO TECH - [employer] Work Phone: [facility] 03-04-2025 10:31-0400 Body weight 51.53 kg Lizz Lynn AUDIO VIDEO TECH - [employer] Work Phone: [facility] 03-04-2025 10:31-0400 Diastolic blood pressure 75 mm[Hg] Lizz Lynn AUDIO VIDEO TECH - [employer] Work Phone: [facility] 03-04-2025 10:31-0400 Heart rate 64 /min Lizz Lynn AUDIO VIDEO TECH - [employer] Work Phone: [facility] 03-04-2025 10:31-0400 Systolic blood pressure 139 mm[Hg] Lizz Lynn AUDIO VIDEO TECH - [employer] Work Phone: [facility] 02-20-2025 09:08-0400 Body mass index (BMI) [Ratio] 19.8 kg/m2 Dr. Daron Benton MD Work Phone: [facility] 02-20-2025 09:08-0400 Body weight 53.[address] Daron Benton MD Work Phone: [facility] 02-20-2025 09:08-0400 Diastolic blood pressure 74 mm[Hg] Dr. Daron Benton MD Work Phone: 3(092)639-850299 [place] [address] 02-20-2025 09:08-0400 Heart rate 50 /min Dr. Daron Benton MD Work Phone: 1(726)222-424182 [place] [address] 02-20-2025 09:08-0400 Respiratory rate 18 /min Dr. Daron Benton MD Work Phone: 9(076)509-424782 [place] [address] 02-20-2025 09:08-0400 SaO2% (BldA) [Mass fraction] 100 % Dr. Daron Benton MD Work Phone: 7(744)627-797682 [place] [address] 02-20-2025 09:08-0400 Systolic blood pressure 121 mm[Hg] Dr. Daron Benton MD Work Phone: 7(512)948-691382 [place] [address] 01-13-2025 16:01-0500 Heart rate 59 /min Dr. Daron Betnon MD Work Phone: 8(855)623-674882 [place] [address] 01-13-2025 16:01-0500 Respiratory rate 16 /min Dr. Daron Benton MD Work Phone: 3(157)296-013482 [place] [address] 01-13-2025 14:34-0500 Body temperature 98 [degF] Dr. Daron Benton MD Work Phone: 9(528)160-436682 [place] [address] 01-13-2025 14:34-0500 Diastolic blood pressure 95 mm[Hg] Dr. Daron Benton MD Work Phone: 6(105)595-605582 [place] [address] 01-13-2025 14:34-0500 Inhaled oxygen flow rate 2 L/min Dr. Daron Benton MD Work Phone: 6(178)884-260382 [place] [address] 01-13-2025 14:34-0500 SaO2% (BldA) [Mass fraction] 94 % Dr. Daron Benton MD Work Phone: 7(400)872-283682 [place] [address] 01-13-2025 14:34-0500 Systolic blood pressure 111 mm[Hg] Dr. Daron Benton MD Work Phone: 4(448)600-513382 [place] [address] 01-13-2025 04:47-0500 Body mass index (BMI) [Ratio] 18.9 kg/m2 Dr. Daron Benton MD Work Phone: 0(557)162-142999 [place] [address] 01-13-2025 04:47-0500 Body weight 51.[address] Daron Benton MD Work Phone: 4(171)769-946882 [place] [address] 12-24-2024 10:03-0500 Body mass index (BMI) [Ratio] 19.4 kg/m2 Dr. Daron Benton MD Work Phone: 1(291)240-163682 [place] [address] 12-24-2024 10:03-0500 Body temperature 96.7 [degF] Dr. Daron Benton MD Work Phone: 9(849)314-545782 [place] [address] 12-24-2024 10:03-0500 Body weight 53.[address] Daron Benton MD Work Phone: 9(509)703-602182 [place] [address] 12-24-2024 10:03-0500 Diastolic blood pressure 77 mm[Hg] Dr. Daron Benton MD Work Phone: 9(278)067-282582 [place] [address] 12-24-2024 10:03-0500 Heart rate 69 /min Dr. Daron Benton MD Work Phone: 3(705)298-794982 [place] [address] 12-24-2024 10:03-0500 Respiratory rate 18 /min Dr. Daron Benton MD Work Phone: 1(681)909-419482 [place] [address] 12-24-2024 10:03-0500 SaO2% (BldA) [Mass fraction] 95 % Dr. Daron Benton MD Work Phone: 6(326)759-354782 [place] [address] 12-24-2024 10:03-0500 Systolic blood pressure 132 mm[Hg] Dr. Daron Benton MD Work Phone: 2(306)378-982682 [place] [address] 12-19-2024 13:20-0500 Body mass index (BMI) [Ratio] 19.4 kg/m2 Dr. Daron Benton MD Work Phone: 6(082)909-133582 [place] [address] 12-19-2024 13:20-0500 Body weight 53.[address] Daron Benton MD Work Phone: 0(804)943-594382 [place] [address] 12-19-2024 13:20-0500 Diastolic blood pressure 77 mm[Hg] Dr. Daron Benton MD Work Phone: 2(034)937-807399 [place] [address] 12-19-2024 13:20-0500 Heart rate 67 /min Dr. Daron Benton MD Work Phone: 4(107)684-175782 [place] [address] 12-19-2024 13:20-0500 Respiratory rate 18 /min Dr. Daron Benton MD Work Phone: 1(393)471-809582 [place] [address] 12-19-2024 13:20-0500 SaO2% (BldA) [Mass fraction] 96 % Dr. Daron Benton MD Work Phone: 9(293)632-186282 [place] [address] 12-19-2024 13:20-0500 Systolic blood pressure 124 mm[Hg] Dr. Daron Benton MD Work Phone: 5(292)609-118182 [place] [address] 12-17-2024 14:25-0500 Body temperature 97.8 [degF] Dr. Daron Benton MD Work Phone: 1(071)407-388882 [place] [address] 12-17-2024 14:25-0500 Diastolic blood pressure 94 mm[Hg] Dr. Daron Benton MD Work Phone: 7(220)840-365882 [place] [address] 12-17-2024 14:25-0500 Heart rate 65 /min Dr. Daron Benton MD Work Phone: 9(059)522-817982 [place] [address] 12-17-2024 14:25-0500 Respiratory rate 20 /min Dr. Daron Benton MD Work Phone: 1(761)899-204982 [place] [address] 12-17-2024 14:25-0500 SaO2% (BldA) [Mass fraction] 95 % Dr. Daron Benton MD Work Phone: 5(802)934-290682 [place] [address] 12-17-2024 14:25-0500 Systolic blood pressure 151 mm[Hg] Dr. Daron Benton MD Work Phone: 3(564)231-795582 [place] [address] 12-17-2024 10:13-0500 Body mass index (BMI) [Ratio] 19.5 kg/m2 Dr. Daron Benton MD Work Phone: 1(318)662-092082 [place] [address] 12-17-2024 10:13-0500 Body weight 53.[address] Daron Benton MD Work Phone: [facility] 12-11-2024 13:50-0500 Body temperature 98 [degF] Dr. Daron Benton MD Work Phone: [facility] 12-11-2024 13:50-0500 Diastolic blood pressure 87 mm[Hg] Dr. Daron Benton MD Work Phone: 5(471)669-346799 [place] [address] 12-11-2024 13:50-0500 Heart rate 70 /min Dr. Daron Benton MD Work Phone: 3(368)297-684099 [place] [address] 12-11-2024 13:50-0500 Respiratory rate 16 /min Dr. Daron Benton MD Work Phone: 1(038)579-485699 [place] [address] 12-11-2024 13:50-0500 SaO2% (BldA) [Mass fraction] 96 % Dr. Daron Benton MD Work Phone: [facility] 12-11-2024 13:50-0500 Systolic blood pressure 139 mm[Hg] Dr. Daron Benton MD Work Phone: 7(610)151-092599 [place] [address] 12-10-2024 10:11-0500 Body weight 51.[address] Daron Benton MD Work Phone: [facility] 12-09-2024 18:00-0500 Inhaled oxygen flow rate 2 L/min Dr. Daron Benton MD Work Phone: [facility] 12-09-2024 14:59-0500 Body mass index (BMI) [Ratio] 18.8 kg/m2 Dr. Daron Benton MD Work Phone: [facility] 02-25-2024 17:00-0400 Body temperature 98.2 [degF] Dr. Daron Benton Work Phone: [facility] 02-25-2024 17:00-0400 Diastolic blood pressure 73 mm[Hg] Dr. Daron Benton Work Phone: [facility] 02-25-2024 17:00-0400 Heart rate 62 /min Dr. Daron Benton Work Phone: [facility] 02-25-2024 17:00-0400 Inhaled oxygen flow rate 2 L/min Dr. Daron Benton Work Phone: [facility] 02-25-2024 17:00-0400 Respiratory rate 16 /min Dr. Daron Benton Work Phone: [facility] 02-25-2024 17:00-0400 SaO2% (BldA) [Mass fraction] 98 % Dr. Daron Benton Work Phone: [facility] 02-25-2024 17:00-0400 Systolic blood pressure 136 mm[Hg] Dr. Daron Benton Work Phone: [facility] 02-24-2024 23:41-0400 Body height [address] Daron Benton Work Phone: [facility] 02-24-2024 23:41-0400 Body mass index (BMI) [Ratio] 19.8 kg/m2 Dr. Daron Benton Work Phone: [facility] 02-24-2024 23:41-0400 Body weight 55.[address] Daron Benton Work Phone: [facility] 02-19-2024 16:00-0400 Body temperature 97.5 [degF] Dr. Daron Benton Work Phone: [facility] 02-19-2024 16:00-0400 Diastolic blood pressure 71 mm[Hg] Dr. Daron Benton Work Phone: [facility] 02-19-2024 16:00-0400 Heart rate 68 /min Dr. Daron Benton Work Phone: [facility] 02-19-2024 16:00-0400 Respiratory rate 17 /min Dr. Daron Benton Work Phone: [facility] 02-19-2024 16:00-0400 SaO2% (BldA) [Mass fraction] 92 % Dr. Daron Benton Work Phone: [facility] 02-19-2024 16:00-0400 Systolic blood pressure 124 mm[Hg] Dr. Daron Benton Work Phone: [facility] 02-19-2024 10:52-0400 Body height 167.[address] Daron Benton Work Phone: [facility] 02-19-2024 10:52-0400 Body mass index (BMI) [Ratio] 21.8 kg/m2 Dr. Daron Benton Work Phone: [facility] 02-19-2024 10:52-0400 Body weight 61.[address] Daron Benton Work Phone: [facility] 01-18-2024 11:47-0500 Body temperature 97.7 [degF] Dr. Daron Benton Work Phone: [facility] 01-18-2024 11:47-0500 Diastolic blood pressure 70 mm[Hg] Dr. Daron Benton Work Phone: [facility] 01-18-2024 11:47-0500 Heart rate 62 /min Dr. Daron Benton Work Phone: [facility] 01-18-2024 11:47-0500 Respiratory rate 18 /min Dr. Daron Benton Work Phone: [facility] 01-18-2024 11:47-0500 SaO2% (BldA) [Mass fraction] 95 % Dr. Daron Benton Work Phone: [facility] 01-18-2024 11:47-0500 Systolic blood pressure 121 mm[Hg] Dr. Daron Benton Work Phone: [facility] 01-18-2024 10:23-0500 Body height 165.[address] Daron Benton Work Phone: [facility] 01-18-2024 10:23-0500 Body mass index (BMI) [Ratio] 20.4 kg/m2 Dr. Daron Benton Work Phone: [facility] 01-18-2024 10:23-0500 Body weight 55.[address] Daron Benton Work Phone: [facility] 01-11-2024 08:22-0500 Diastolic blood pressure 57 mm[Hg] Dr. Daron Benton Work Phone: [facility] 01-11-2024 08:22-0500 Systolic blood pressure 132 mm[Hg] Dr. Daron Benton Work Phone: [facility] 01-11-2024 08:13-0500 Body temperature 98.5 [degF] Dr. Daron Benton Work Phone: [facility] 01-11-2024 08:13-0500 Heart rate 61 /min Dr. Daron Benton Work Phone: [facility] 01-11-2024 08:13-0500 Respiratory rate 16 /min Dr. Daron Benton Work Phone: [facility] 01-11-2024 08:13-0500 SaO2% (BldA) [Mass fraction] 98 % Dr. Daron Benton Work Phone: [facility] 01-11-2024 06:51-0500 Inhaled oxygen flow rate 2 L/min Dr. Daron Benton Work Phone: [facility] 01-11-2024 02:14-0500 Body height 165.[address] Daron Benton Work Phone: [facility] 01-11-2024 02:14-0500 Body mass index (BMI) [Ratio] 20.1 kg/m2 Dr. Daron Benton Work Phone: [facility] 01-11-2024 02:14-0500 Body weight [address] Daron Benton Work Phone: [facility] 12-21-2023 12:53-0500 Body mass index (BMI) [Ratio] 20.5 kg/m2 Dr. Daron Benton Work Phone: [facility] 12-21-2023 12:53-0500 Body weight 55.[address] Daron Benton Work Phone: [facility] 12-21-2023 12:53-0500 Diastolic blood pressure 89 mm[Hg] Dr. Daron Benton Work Phone: [facility] 12-21-2023 12:53-0500 Heart rate 50 /min Dr. Daron Benton Work Phone: [facility] 12-21-2023 12:53-0500 Respiratory rate 18 /min Dr. Daron Benton Work Phone: [facility] 12-21-2023 12:53-0500 SaO2% (BldA) [Mass fraction] 100 % Dr. Daron Benton Work Phone: [facility] 12-21-2023 12:53-0500 Systolic blood pressure 193 mm[Hg] Dr. Daron Benton Work Phone: [facility] 12-14-2023 13:43-0500 Body mass index (BMI) [Ratio] 19.37 kg/m2 Lizz Lynn [employer] Work Phone: [facility] 12-14-2023 13:43-0500 Body weight 54.43 kg Lizz Lynn [employer] Work Phone: [facility] 12-14-2023 13:43-0500 Diastolic blood pressure 78 mm[Hg] Lizz Lynn [employer] Work Phone: [facility] 12-14-2023 13:43-0500 Heart rate 66 /min Lizz Lynn [employer] Work Phone: [facility] 12-14-2023 13:43-0500 Systolic blood pressure 186 mm[Hg] Lizz Lynn [employer] Work Phone: [facility] 12-07-2023 14:27-0500 Body temperature 97.4 [degF] Dr. Daron Benton Work Phone: [facility] 12-07-2023 14:27-0500 Diastolic blood pressure 79 mm[Hg] Dr. Daron Benton Work Phone: [facility] 12-07-2023 14:27-0500 Heart rate 50 /min Dr. Daron Benton Work Phone: [facility] 12-07-2023 14:27-0500 Respiratory rate 12 /min Dr. Daron Benton Work Phone: [facility] 12-07-2023 14:27-0500 SaO2% (BldA) [Mass fraction] 98 % Dr. Daron Benton Work Phone: [facility] 12-07-2023 14:27-0500 Systolic blood pressure 140 mm[Hg] Dr. Daron Benton Work Phone: 1(864)360-390436 [address] 12-06-2023 16:45-0500 Body height 165.[address] Daron Benton Work Phone: 1(791)704-406536 [address] 12-06-2023 16:45-0500 Body weight [address] Daron Benton Work Phone: 1(776)843-639936 [address] 12-04-2023 07:00-0500 Inhaled oxygen flow rate 1 L/min Dr. Daron Benton Work Phone: 2(121)514-718036 [address] 12-02-2023 12:37-0500 Body mass index (BMI) [Ratio] 20.5 kg/m2 Dr. Daron Benton Work Phone: 2(492)050-161999 [place] [address] 12-02-2023 11:40-0500 Diastolic blood pressure 48 mm[Hg] Dr. Daron Benton Work Phone: [facility] 12-02-2023 11:40-0500 Heart rate 48 /min Dr. Daron Benton Work Phone: 6(382)428-584699 [place] [address] 12-02-2023 11:40-0500 Respiratory rate 15 /min Dr. Daron Benton Work Phone: 7(870)107-329499 [place] [address] 12-02-2023 11:40-0500 SaO2% (BldA) [Mass fraction] 94 % Dr. Daron Benton Work Phone: 7(644)719-120282 [place] [address] 12-02-2023 11:40-0500 Systolic blood pressure 176 mm[Hg] Dr. Daron Benton Work Phone: 9(489)436-473082 [place] [address] 12-02-2023 06:33-0500 Body height 165.[address] Daron Benton Work Phone: 7(415)892-719282 [place] [address] 12-02-2023 06:33-0500 Body mass index (BMI) [Ratio] 20.5 kg/m2 Dr. Daron Benton Work Phone: 5(916)444-001482 [place] [address] 12-02-2023 06:33-0500 Body temperature 97.6 [degF] Dr. Daron Benton Work Phone: 4(611)405-789882 [place] [address] 12-02-2023 06:33-0500 Body weight [address] Daron Benton Work Phone: 7(799)544-588382 [place] [address] 11-27-2023 12:32-0500 Body height 165.[address] Daron Benton Work Phone: 0(142)862-121282 [place] [address] 11-27-2023 09:46-0500 SaO2% (BldA) [Mass fraction] 96 % Dr. Daron Benton Work Phone: 4(736)892-394782 [place] [address] 11-27-2023 09:32-0500 Body temperature 98 [degF] Dr. Daron Benton Work Phone: 0(862)527-335782 [place] [address] 11-27-2023 09:32-0500 Diastolic blood pressure 97 mm[Hg] Dr. Daron Benton Work Phone: 6(381)658-702082 [place] [address] 11-27-2023 09:32-0500 Heart rate 52 /min Dr. Daron Benton Work Phone: 4(743)859-122082 [place] [address] 11-27-2023 09:32-0500 Respiratory rate 14 /min Dr. Daron Benton Work Phone: 3(390)693-346582 [place] [address] 11-27-2023 09:32-0500 Systolic blood pressure 196 mm[Hg] Dr. Daron Benton Work Phone: 9(390)079-503282 [place] [address] 11-27-2023 09:01-0500 Body mass index (BMI) [Ratio] 20 kg/m2 Dr. Daron Benton Work Phone: [facility] 11-27-2023 09:01-0500 Body weight 54.[address] Daron Benton Work Phone: [facility] 11-26-2023 15:22-0500 Diastolic blood pressure 81 mm[Hg] Dr. Daron Benton Work Phone: 3(419)128-294736 [address] 11-26-2023 15:22-0500 Heart rate 69 /min Dr. Daron Benton Work Phone: 1(989)533-150099 [place] [address] 11-26-2023 15:22-0500 Respiratory rate 16 /min Dr. Daron Benton Work Phone: 4(437)731-225936 [address] 11-26-2023 15:22-0500 SaO2% (BldA) [Mass fraction] 96 % Dr. Daron Benton Work Phone: 6(055)984-204899 [place] [address] 11-26-2023 15:22-0500 Systolic blood pressure 149 mm[Hg] Dr. Daron Benton Work Phone: [facility] 11-26-2023 12:47-0500 Body height 165.[address] Daron Benton Work Phone: 7(332)099-028136 [address] 11-26-2023 12:47-0500 Body mass index (BMI) [Ratio] 20.2 kg/m2 Dr. Daron Benton Work Phone: 5(988)717-339299 [place] [address] 11-26-2023 12:47-0500 Body temperature 97 [degF] Dr. Daron Benton Work Phone: [facility] 11-26-2023 12:47-0500 Body weight 55.[address] Daron Benton Work Phone: [facility] 11-21-2023 11:50-0500 Body temperature 98.3 [degF] Dr. Daron Benton Work Phone: [facility] 11-21-2023 11:50-0500 Diastolic blood pressure 72 mm[Hg] Dr. Daron Benton Work Phone: [facility] 11-21-2023 11:50-0500 Heart rate 54 /min Dr. Daron Benton Work Phone: [facility] 11-21-2023 11:50-0500 Respiratory rate 16 /min Dr. Daron Benton Work Phone: [facility] 11-21-2023 11:50-0500 SaO2% (BldA) [Mass fraction] 94 % Dr. Daron Benton Work Phone: [facility] 11-21-2023 11:50-0500 Systolic blood pressure 134 mm[Hg] Dr. Daron Benton Work Phone: 5(876)355-722536 [address] 11-21-2023 05:35-0500 Body mass index (BMI) [Ratio] 20.4 kg/m2 Dr. Daron Benton Work Phone: 4(269)292-545699 [place] [address] 11-21-2023 05:35-0500 Body weight 55.[address] Daron Benton Work Phone: [facility] 11-18-2023 15:44-0500 Body height 165.[address] Daron Benton Work Phone: 2(197)314-846499 [place] [address] 11-18-2023 15:18-0500 Body temperature 98.2 [degF] Dr. Daron Benton Work Phone: 6(932)935-974099 [place] [address] 11-18-2023 15:18-0500 Diastolic blood pressure 75 mm[Hg] Dr. Daron Benton Work Phone: [facility] 11-18-2023 15:18-0500 Heart rate 72 /min Dr. Daron Benton Work Phone: [facility] 11-18-2023 15:18-0500 Respiratory rate 17 /min Dr. Daron Benton Work Phone: [facility] 11-18-2023 15:18-0500 SaO2% (BldA) [Mass fraction] 93 % Dr. Daron Benton Work Phone: [facility] 11-18-2023 15:18-0500 Systolic blood pressure 161 mm[Hg] Dr. Daron Benton Work Phone: [facility] 11-18-2023 11:43-0500 Body height 165.[address] Daron Benton Work Phone: [facility] 11-18-2023 11:43-0500 Body mass index (BMI) [Ratio] 20.9 kg/m2 Dr. Daron Benton Work Phone: [facility] 11-18-2023 11:43-0500 Body weight 57.[address] Daron Benton Work Phone: [facility] 11-16-2023 11:05-0500 Body height 165.[address] Daron Benton Work Phone: [facility] 11-16-2023 11:05-0500 Body weight 54.[address] Daron Benton Work Phone: [facility] 11-16-2023 09:53-0500 Heart rate 66 /min Dr. Daron Benton Work Phone: [facility] 11-16-2023 09:31-0500 Body temperature 97.7 [degF] Dr. Daron Benton Work Phone: [facility] 11-16-2023 09:31-0500 Diastolic blood pressure 71 mm[Hg] Dr. Daron Benton Work Phone: [facility] 11-16-2023 09:31-0500 Respiratory rate 16 /min Dr. Daron Benton Work Phone: [facility] 11-16-2023 09:31-0500 SaO2% (BldA) [Mass fraction] 96 % Dr. Daron Benton Work Phone: [facility] 11-16-2023 09:31-0500 Systolic blood pressure 138 mm[Hg] Dr. Daron Benton Work Phone: [facility] 11-16-2023 01:54-0500 Body mass index (BMI) [Ratio] 19.9 kg/m2 Dr. Daron Benton Work Phone: [facility] 11-15-2023 15:21-0500 Diastolic blood pressure 49 mm[Hg] Dr. Daron Benton Work Phone: [facility] 11-15-2023 15:21-0500 Heart rate 60 /min Dr. Daron Benton Work Phone: [facility] 11-15-2023 15:21-0500 Respiratory rate 18 /min Dr. Daron Benton Work Phone: [facility] 11-15-2023 15:21-0500 SaO2% (BldA) [Mass fraction] 98 % Dr. Daron Benton Work Phone: [facility] 11-15-2023 15:21-0500 Systolic blood pressure 119 mm[Hg] Dr. Daron Benton Work Phone: [facility] 11-15-2023 13:28-0500 Body temperature 97.8 [degF] Dr. Daron Benton Work Phone: [facility] 11-15-2023 11:22-0500 Body height 165.[address] Daron Benton Work Phone: [facility] 11-15-2023 11:22-0500 Body mass index (BMI) [Ratio] 21.3 kg/m2 Dr. Daron Benton Work Phone: [facility] 11-15-2023 11:22-0500 Body weight 58.[address] Daron Benton Work Phone: [facility] 11-02-2023 13:04-0500 Body mass index (BMI) [Ratio] 20.5 kg/m2 Dr. Daron Benton Work Phone: [facility] 11-02-2023 13:04-0500 Body weight 55.[address] Daron Benton Work Phone: [facility] 11-02-2023 13:04-0500 Diastolic blood pressure 68 mm[Hg] Dr. Daron Benton Work Phone: [facility] 11-02-2023 13:04-0500 Heart rate 89 /min Dr. Daron Benton Work Phone: [facility] 11-02-2023 13:04-0500 Respiratory rate 18 /min Dr. Daron Benton Work Phone: [facility] 11-02-2023 13:04-0500 SaO2% (BldA) [Mass fraction] 100 % Dr. Daron Benton Work Phone: [facility] 11-02-2023 13:04-0500 Systolic blood pressure 109 mm[Hg] Dr. Daron Benton Work Phone: 2(904)924-517736 [address] 10-05-2023 08:07-0500 Diastolic blood pressure 82 mm[Hg] Dr. Daron Benton Work Phone: 5(519)406-487836 [address] 10-05-2023 08:07-0500 Respiratory rate 16 /min Dr. Daron Benton Work Phone: [facility] 10-05-2023 08:07-0500 SaO2% (BldA) [Mass fraction] 96 % Dr. Daron Benton Work Phone: 9(773)511-068699 [place] [address] 10-05-2023 08:07-0500 Systolic blood pressure 214 mm[Hg] Dr. Daron Benton Work Phone: [facility] 10-05-2023 00:43-0500 Body height 165.[address] Daron Benton Work Phone: [facility] 10-05-2023 00:43-0500 Body mass index (BMI) [Ratio] 21.7 kg/m2 Dr. Daron Benton Work Phone: [facility] 10-05-2023 00:43-0500 Body temperature 97.8 [degF] Dr. Daron Benton Work Phone: [facility] 10-05-2023 00:43-0500 Body weight 59.[address] Daron Benton Work Phone: [facility] 10-05-2023 00:43-0500 Heart rate 55 /min Dr. Daron Benton Work Phone: [facility] 05-24-2023 11:16-0400 Body weight 52.[address] Daron Benton Work Phone: [facility] 05-24-2023 11:16-0400 Diastolic blood pressure 86 mm[Hg] Dr. Daron Benton Work Phone: [facility] 05-24-2023 11:16-0400 Heart rate 56 /min Dr. Daron Benton Work Phone: [facility] 05-24-2023 11:16-0400 Respiratory rate 20 /min Dr. Daron Benton Work Phone: [facility] 05-24-2023 11:16-0400 Systolic blood pressure 120 mm[Hg] Dr. Daron Benton Work Phone: [facility] 05-24-2023 09:19-0400 Body height 165.[address] Daron Benton Work Phone: [facility] 04-08-2023 12:14-0400 Diastolic blood pressure 87 mm[Hg] Dr. Daron Benton Work Phone: [facility] 04-08-2023 12:14-0400 Heart rate 50 /min Dr. Daron Benton Work Phone: [facility] 04-08-2023 12:14-0400 Respiratory rate 12 /min Dr. Daron Benton Work Phone: [facility] 04-08-2023 12:14-0400 SaO2% (BldA) [Mass fraction] 98 % Dr. Daron Benton Work Phone: [facility] 04-08-2023 12:14-0400 Systolic blood pressure 162 mm[Hg] Dr. Daron Benton Work Phone: [facility] 04-08-2023 09:19-0400 Body height 165.[address] Daron Benton Work Phone: [facility] 04-08-2023 09:19-0400 Body mass index (BMI) [Ratio] 19.1 kg/m2 Dr. Daron Benton Work Phone: [facility] 04-08-2023 09:19-0400 Body temperature 97.5 [degF] Dr. Daron Benton Work Phone: [facility] 04-08-2023 09:19-0400 Body weight [address] Daron Benton Work Phone: [facility] 03-31-2023 15:10-0400 Diastolic blood pressure 82 mm[Hg] Dr. Daorn Benton Work Phone: 5(352)138-374136 [address] 03-31-2023 15:10-0400 Heart rate 45 /min Dr. Daron Benton Work Phone: [facility] 03-31-2023 15:10-0400 Respiratory rate 16 /min Dr. Daron Benton Work Phone: 4(720)874-207799 [place] [address] 03-31-2023 15:10-0400 SaO2% (BldA) [Mass fraction] 100 % Dr. Daron Benton Work Phone: 6(450)535-934899 [place] [address] 03-31-2023 15:10-0400 Systolic blood pressure 198 mm[Hg] Dr. Daron Benton Work Phone: [facility] 03-31-2023 12:40-0400 Body mass index (BMI) [Ratio] 19.5 kg/m2 Dr. Daron Benton Work Phone: 2(817)547-375099 [place] [address] 03-31-2023 12:40-0400 Body weight 53.[address] Daron Benton Work Phone: [facility] 03-31-2023 12:33-0400 Body height 165.[address] Daron Benton Work Phone: [facility] 03-31-2023 12:33-0400 Body temperature 96.9 [degF] Dr. Daron Benton Work Phone: [facility] 03-16-2023 12:26-0400 Body height 165.[address] Daron Benton Work Phone: [facility] 03-16-2023 12:26-0400 Body mass index (BMI) [Ratio] 19.1 kg/m2 Dr. Daron Benton Work Phone: [facility] 03-16-2023 12:26-0400 Body temperature 97.3 [degF] Dr. Daron Benton Work Phone: 0(702)567-048282 [place] [address] 03-16-2023 12:26-0400 Body weight 52.[address] Daron Benton Work Phone: 0(271)110-056182 [place] [address] 03-16-2023 12:26-0400 Diastolic blood pressure 85 mm[Hg] Dr. Daron Benton Work Phone: 2(809)035-470082 [place] [address] 03-16-2023 12:26-0400 Heart rate 58 /min Dr. Daron Benton Work Phone: 9(304)896-984182 [place] [address] 03-16-2023 12:26-0400 Respiratory rate 14 /min Dr. Daron Benton Work Phone: 4(109)156-140882 [place] [address] 03-16-2023 12:26-0400 SaO2% (BldA) [Mass fraction] 100 % Dr. Daron Benton Work Phone: 3(948)567-299782 [place] [address] 03-16-2023 12:26-0400 Systolic blood pressure 163 mm[Hg] Dr. Daron Benton Work Phone: 0(881)521-710982 [place] [address] 11-24-2022 18:46-0500 Body height 167.[address] Daron Benton Work Phone: 9(097)734-798436 [address] 11-24-2022 18:46-0500 Body mass index (BMI) [Ratio] 19.3 kg/m2 Dr. Daron Benton Work Phone: 8(122)232-924982 [place] [address] 11-24-2022 18:46-0500 Body temperature 97.2 [degF] Dr. Daron Benton Work Phone: 3(194)220-979782 [place] [address] 11-24-2022 18:46-0500 Body weight 54.[address] Daron Benton Work Phone: [facility] [facility]24-2022 18:46-0500 Diastolic blood pressure 106 mm[Hg] Dr. Daron Benton Work Phone: [facility] 11-24-2022 18:46-0500 Heart rate 61 /min Dr. Daron Benton Work Phone: [facility] 11-24-2022 18:46-0500 Respiratory rate 18 /min Dr. Daron Benton Work Phone: [facility] 11-24-2022 18:46-0500 SaO2% (BldA) [Mass fraction] 100 % Dr. Daron Benton Work Phone: [facility] 11-24-2022 18:46-0500 Systolic blood pressure 159 mm[Hg] Dr. Daron Benton Work Phone: [facility] 11-09-2022 14:07-0500 Diastolic Blood Pressure Non-Invasive 66 1 TYE BARNETT MD [facility] 11-09-2022 14:07-0500 Heart rate 56 /min TYE BARNETT MD [facility] 11-09-2022 14:07-0500 Systolic Blood Pressure Non-Invasive 155 1 TYE BARNETT MD [facility] 11-09-2022 13:42-0500 Diastolic Blood Pressure Non-Invasive 69 1 TYE BARNETT MD [facility] 11-09-2022 13:42-0500 Heart rate 58 /min TYE BARNETT MD [facility] 11-09-2022 13:42-0500 Systolic Blood Pressure Non-Invasive 156 1 TYE BARNETT MD [facility] 11-09-2022 13:14-0500 Diastolic Blood Pressure Non-Invasive 86 1 TYE BARNETT MD [facility] 11-09-2022 13:14-0500 Heart rate 54 /min TYE BARNETT MD [facility] 11-09-2022 13:14-0500 Systolic Blood Pressure Non-Invasive 175 1 TYE BARNETT MD [facility] 11-09-2022 11:25-0500 Reason For Taking VItal Signs TYE BARNETT MD [facility] 11-09-2022 11:25-0500 Respiratory rate 16 /min TYE BARNETT MD [facility] 11-09-2022 11:03-0500 Respiratory rate 16 /min TYE BARNETT MD [facility] 11-09-2022 10:38-0500 Respiratory rate 16 /min TYE BARNETT MD [facility] 11-09-2022 06:29-0500 Blood Pressure Location TYE BARNETT MD [facility] 11-09-2022 06:29-0500 Body height 167.6 cm TYE BARNETT MD [facility] 11-09-2022 06:29-0500 Body temperature 97.7 [degF] TYE BARNETT MD [facility] 11-09-2022 06:29-0500 Body weight 54.8 kg TYE BARNETT MD [facility] 11-09-2022 06:29-0500 Body weight 19.51 kg/m2 TYE BARNETT MD [facility] 10-26-2022 13:20-0500 Body mass index (BMI) [Ratio] 19 kg/m2 Dr. Daron Benton Work Phone: [facility] 10-26-2022 13:20-0500 Body weight 53.[address] Daron Benton Work Phone: [facility] 10-26-2022 13:20-0500 Diastolic blood pressure 70 mm[Hg] Dr. Daron Benton Work Phone: [facility] 10-26-2022 13:20-0500 Heart rate 51 /min Dr. Daron Benton Work Phone: [facility] 10-26-2022 13:20-0500 Respiratory rate 18 /min Dr. Daron Benton Work Phone: [facility] 10-26-2022 13:20-0500 SaO2% (BldA) [Mass fraction] 100 % Dr. Daron Benton Work Phone: [facility] 10-26-2022 13:20-0500 Systolic blood pressure 129 mm[Hg] Dr. Daron Benton Work Phone: [facility] 05-16-2022 12:37-0400 Body height 167.[address] Daron Benton Work Phone: [facility] Work Phone: 05-16-2022 12:37-0400 Body mass index (BMI) [Ratio] 19.5 kg/m2 Dr. Daron Benton Work Phone: [facility] Work Phone: 05-16-2022 12:37-0400 Body weight 54.[address] Daron Benton Work Phone: [facility] Work Phone: 05-16-2022 12:37-0400 Diastolic blood pressure 75 mm[Hg] Dr. Daron Benton Work Phone: [facility] Work Phone: 05-16-2022 12:37-0400 Heart rate 57 /min Dr. Daron Benton Work Phone: [facility] Work Phone: 05-16-2022 12:37-0400 Respiratory rate 18 /min Dr. Daron Benton Work Phone: [facility] Work Phone: 05-16-2022 12:37-0400 SaO2% (BldA) [Mass fraction] 98 % Dr. Daron Benton Work Phone: [facility] Work Phone: 05-16-2022 12:37-0400 Systolic blood pressure 115 mm[Hg] Dr. Daron Benton Work Phone: [facility] Work Phone: 02-22-2022 10:52-0400 Body height 167.[address] Daron Benton Work Phone: [facility] Work Phone: 02-22-2022 10:52-0400 Body mass index (BMI) [Ratio] 20.1 kg/m2 Dr. Daron Benton Work Phone: [facility] Work Phone: 02-22-2022 10:52-0400 Body weight 56.[address] Daron Benton Work Phone: [facility] Work Phone: 02-22-2022 10:52-0400 Diastolic blood pressure 94 mm[Hg] Dr. Daron Benton Work Phone: [facility] Work Phone: 02-22-2022 10:52-0400 Heart rate 56 /min Dr. Daron Benton Work Phone: [facility] Work Phone: 02-22-2022 10:52-0400 Respiratory rate 18 /min Dr. Daron Benton Work Phone: [facility] Work Phone: 02-22-2022 10:52-0400 SaO2% (BldA) [Mass fraction] 96 % Dr. Daron Benton Work Phone: [facility] Work Phone: 02-22-2022 10:52-0400 Systolic blood pressure 169 mm[Hg] Dr. Daron Benton Work Phone: [facility] Work Phone: 02-20-2022 19:23-0400 Diastolic blood pressure 89 mm[Hg] Dr. Daron Benton Work Phone: [facility] Work Phone: 02-20-2022 19:23-0400 Heart rate 67 /min Dr. Daron Benton Work Phone: [facility] Work Phone: 02-20-2022 19:23-0400 Respiratory rate 15 /min Dr. Daron Benton Work Phone: [facility] Work Phone: 02-20-2022 19:23-0400 SaO2% (BldA) [Mass fraction] 97 % Dr. Daron Benton Work Phone: [facility] Work Phone: 02-20-2022 19:23-0400 Systolic blood pressure 172 mm[Hg] Dr. Daron Benton Work Phone: [facility] Work Phone: 02-20-2022 16:38-0400 Body mass index (BMI) [Ratio] 20.6 kg/m2 Dr. Daron Benton Work Phone: [facility] Work Phone: 02-20-2022 16:38-0400 Body temperature 96.5 [degF] Dr. Daron Benton Work Phone: [facility] Work Phone: 02-20-2022 16:38-0400 Body weight 58.[address] Daron Benton Work Phone: [facility] Work Phone: 02-18-2022 07:24-0400 Diastolic blood pressure 84 mm[Hg] Dr. Daron Benton Work Phone: [facility] Work Phone: 02-18-2022 07:24-0400 Heart rate 82 /min Dr. Daron Benton Work Phone: [facility] Work Phone: 02-18-2022 07:24-0400 Respiratory rate 16 /min Dr. Daron Benton Work Phone: [facility] Work Phone: 02-18-2022 07:24-0400 SaO2% (BldA) [Mass fraction] 98 % Dr. Daron Benton Work Phone: [facility] Work Phone: 02-18-2022 07:24-0400 Systolic blood pressure 145 mm[Hg] Dr. Daron Benton Work Phone: [facility] Work Phone: 02-18-2022 04:09-0400 Body height 167.[address] Daron Benton Work Phone: [facility] Work Phone: 02-18-2022 04:09-0400 Body mass index (BMI) [Ratio] 21.2 kg/m2 Dr. Daron Benton Work Phone: [facility] Work Phone: 02-18-2022 04:09-0400 Body temperature 97 [degF] Dr. Daron Benton Work Phone: [facility] Work Phone: 02-18-2022 04:09-0400 Body weight 59.[address] Daron Benton Work Phone: [facility] Work Phone: 02-17-2022 22:28-0400 Diastolic blood pressure 87 mm[Hg] Dr. Daron Benton Work Phone: [facility] Work Phone: 02-17-2022 22:28-0400 Heart rate 82 /min Dr. Daron Benton Work Phone: [facility] Work Phone: 02-17-2022 22:28-0400 Respiratory rate 15 /min Dr. Daron Benton Work Phone: [facility] Work Phone: 02-17-2022 22:28-0400 SaO2% (BldA) [Mass fraction] 98 % Dr. Daron Benton Work Phone: [facility] Work Phone: 02-17-2022 22:28-0400 Systolic blood pressure 145 mm[Hg] Dr. Daron Benton Work Phone: [facility] Work Phone: 02-17-2022 21:33-0400 Body height 167.[address] Daron Benton Work Phone: [facility] Work Phone: 02-17-2022 21:33-0400 Body mass index (BMI) [Ratio] 20.6 kg/m2 Dr. Daron Benton Work Phone: [facility] Work Phone: 02-17-2022 21:33-0400 Body temperature 98.1 [degF] Dr. Daron Benton Work Phone: [facility] Work Phone: 02-17-2022 21:33-0400 Body weight 58.[address] Daron Benton Work Phone: [facility] Work Phone: 02-14-2022 23:00-0400 Diastolic blood pressure 78 mm[Hg] Dr. Daron Benton Work Phone: [facility] Work Phone: 02-14-2022 23:00-0400 Heart rate 78 /min Dr. Daron Benton Work Phone: [facility] Work Phone: 02-14-2022 23:00-0400 Respiratory rate 16 /min Dr. Daron Benton Work Phone: [facility] Work Phone: 02-14-2022 23:00-0400 SaO2% (BldA) [Mass fraction] 97 % Dr. Daron Benton Work Phone: [facility] Work Phone: 02-14-2022 23:00-0400 Systolic blood pressure 159 mm[Hg] Dr. Daron Benton Work Phone: [facility] Work Phone: 02-14-2022 15:46-0400 Body mass index (BMI) [Ratio] 22 kg/m2 Dr. Daron Benton Work Phone: [facility] Work Phone: 02-14-2022 15:46-0400 Body temperature 98.2 [degF] Dr. Daron Benton Work Phone: [facility] Work Phone: 02-14-2022 15:46-0400 Body weight 61.[address] Daron Benton Work Phone: [facility] Work Phone: 02-08-2022 12:58-0400 Body mass index (BMI) [Ratio] 20.5 kg/m2 Dr. Daron Benton Work Phone: [facility] Work Phone: 02-08-2022 12:58-0400 Body weight 57.[address] Daron Benton Work Phone: [facility] Work Phone: 02-08-2022 12:58-0400 Diastolic blood pressure 76 mm[Hg] Dr. Daron Benton Work Phone: [facility] Work Phone: 02-08-2022 12:58-0400 Heart rate 51 /min Dr. Daron Benton Work Phone: [facility] Work Phone: 02-08-2022 12:58-0400 Respiratory rate 18 /min Dr. Daron Benton Work Phone: [facility] Work Phone: 02-08-2022 12:58-0400 SaO2% (BldA) [Mass fraction] 99 % Dr. Daron Benton Work Phone: [facility] Work Phone: 02-08-2022 12:58-0400 Systolic blood pressure 136 mm[Hg] Dr. Daron Benton Work Phone: [facility] Work Phone: 02-08-2022 12:58-0400 Body mass index (BMI) [Ratio] 20.5 kg/m2 Dr. Daron Benton Work Phone: [facility] Work Phone: 02-08-2022 12:58-0400 Body weight 57.[address] Draon Benton Work Phone: [facility] Work Phone: 02-08-2022 12:58-0400 Diastolic blood pressure 76 mm[Hg] Dr. Daron Benton Work Phone: [facility] Work Phone: 02-08-2022 12:58-0400 Heart rate 51 /min Dr. Daron Benton Work Phone: [facility] Work Phone: 02-08-2022 12:58-0400 Respiratory rate 18 /min Dr. Daron Benton Work Phone: [facility] Work Phone: 02-08-2022 12:58-0400 SaO2% (BldA) [Mass fraction] 99 % Dr. Daron Benton Work Phone: [facility] Work Phone: 02-08-2022 12:58-0400 Systolic blood pressure 136 mm[Hg] Dr. Daron Benton Work Phone: [facility] Work Phone: 01-23-2022 10:55-0500 Body mass index (BMI) [Ratio] 21 kg/m2 Dr. Daron Benton Work Phone: [facility] Work Phone: 01-23-2022 10:55-0500 Body temperature 97.3 [degF] Dr. Daron Benton Work Phone: [facility] Work Phone: 01-23-2022 10:55-0500 Body weight 59.[address] Daron Benton Work Phone: [facility] Work Phone: 01-23-2022 10:55-0500 Diastolic blood pressure 105 mm[Hg] Dr. Daron Benton Work Phone: [facility] Work Phone: 01-23-2022 10:55-0500 Heart rate 54 /min Dr. Daron Benton Work Phone: [facility] Work Phone: 01-23-2022 10:55-0500 Respiratory rate 16 /min Dr. Daron Benton Work Phone: [facility] Work Phone: 01-23-2022 10:55-0500 SaO2% (BldA) [Mass fraction] 96 % Dr. Daron Benton Work Phone: [facility] Work Phone: 01-23-2022 10:55-0500 Systolic blood pressure 194 mm[Hg] Dr. Daron Benton Work Phone: [facility] Work Phone: 01-23-2022 09:55-0500 Body mass index (BMI) [Ratio] 21 kg/m2 Dr. Daron Benton Work Phone: [facility] Work Phone: 01-23-2022 09:55-0500 Body temperature 97.3 [degF] Dr. Daron Benton Work Phone: [facility] Work Phone: 01-23-2022 09:55-0500 Body weight 59.[address] Daron Benton Work Phone: [facility] Work Phone: 01-23-2022 09:55-0500 Diastolic blood pressure 105 mm[Hg] Dr. Daron Benton Work Phone: [facility] Work Phone: 01-23-2022 09:55-0500 Heart rate 54 /min Dr. Daron Benton Work Phone: [facility] Work Phone: 01-23-2022 09:55-0500 Respiratory rate 16 /min Dr. Daron Benton Work Phone: [facility] Work Phone: 01-23-2022 09:55-0500 SaO2% (BldA) [Mass fraction] 96 % Dr. Daron Benton Work Phone: [facility] Work Phone: 01-23-2022 09:55-0500 Systolic blood pressure 194 mm[Hg] Dr. Daron Benton Work Phone: [facility] Work Phone: 01-18-2022 07:11-0500 Body weight 56.[address] Daron Benton Work Phone: [facility] Work Phone: 01-18-2022 06:11-0500 Body weight 56.[address] Daron Benton Work Phone: [facility] Work Phone: 01-17-2022 08:23-0500 Body mass index (BMI) [Ratio] 20.7 kg/m2 Dr. Daron Benton Work Phone: [facility] Work Phone: 01-17-2022 07:23-0500 Body mass index (BMI) [Ratio] 20.7 kg/m2 Dr. Daron Benton Work Phone: [facility] Work Phone: Encounters Encounter Date Encounter Type Care Provider Facility Start: 05-20-2025 End: 05-20-[address] Daron Benton MD Work Phone: [facility] Start: 05-20-2025 End: 05-20-2025 Lizz Lynn CLINICAL PSYCHOLOGY PROFESSOR-C -[facility] Work Phone: Start: 05-20-2025 End: 05-20-2025 ambulatory Lizz Lynn Facility:[facility] Start: 05-19-2025 End: 05-19-2025 Dr. Daron Benton MD Work Phone: -Emergency Department Work Phone: Start: 05-19-2025 End: 05-19-2025 Emergency department patient visit Dr. Daron Benton MD Work Phone: -Emergency Department Start: 05-15-2025 End: 05-15-[address] Daron Benton MD Work Phone: -Cat Scan [facility] Start: 05-15-2025 End: 05-15-2025 Dr. Tye Barnett MD -Cat Scan [facility] Work Phone: Start: 05-15-2025 End: 05-15-2025 ambulatory Daron Benton Facility:[facility] Start: 05-06-2025 End: 05-06-2025 Iona Bradley CLINICAL PSYCHOLOGY PROFESSOR-C -[facility] Work Phone: Start: 05-06-2025 End: 05-06-[address] Daron Benton MD Work Phone: [facility] Work Phone: Start: 05-05-2025 End: 05-06-2025 Telephone encounter Lizz Lynn AUDIO VIDEO TECH - [facility] Work Phone: [facility] Comment on above: Prior Authorization Start: 04-28-2025 ambulatory Negar Elizondoi ty:[facility] Start: 04-24-2025 End: 04-24-2025 Telephone encounter Lizz Lynn AUDIO VIDEO TECH - [facility]OM[facility] Work Phone: [facility] Comment on above: Med Refill (Baclofen ) Start: 04-22-2025 Kevin Gonzalez DO -[facility] Start: 04-22-2025 Dr. Roman Mckeon MD -[facility] Work Phone: Start: 04-21-2025 Kevin [place] DO -[facility] Start: 04-21-2025 Dr. Sommer archibald MD -[facility] Work Phone: Start: 04-20-2025 Kevin [place] DO -[facility] Start: 04-20-2025 Dr. Roman Mckeon MD -[facility] Work Phone: Start: 04-19-2025 Dr. Roman Mckeon MD -[facility] Work Phone: Start: 04-18-2025 ambulatory Kevin Gonzalez Facility :[facility] Start: 04-18-2025 End: 04-22-2025 Dr. Roman Mckeon [...] End: 04-11-2025 Dr. Ramírez [facility] Work Phone: Start: 04-11-2025 End: 04-11-2025 Emergency department patient visit Dr. Ramírez Onofre MD -Emergency Department Work Phone: Start: 04-08-2025 End: 04-08-2025 Office outpatient visit 15 minutes Lizz Lynn AUDIO VIDEO TECH - [facility] [employer]OM[employer] Work Phone: [facility] Comment on above: Multiple sclerosis ( HCC) (Primary Dx); Dysphasia Start: 04-08-2025 End: 04-08-2025 ambulatory [facility] Start: 04-02-2025 End: 04-02-2025 Dr. Daron Benton MD Work Phone: -Emergency Department Work Phone: Start: 04-02-2025 End: 04-02-2025 Emergency department patient visit Dr. Daron Benton MD Work Phone: [facility] Work Phone: Start: 03-19-2025 [facility] Daron [place] Facility:[facility] Start: 03-19-2025 Non-patient / Non-visit Dr. Chico FOX -[facility] Start: 03-19-2025 End: 03-19-[address] Orlando Jacob MD -Cardiovascular Services Work Phone: Start: 03-19-2025 End: 03-19-2025 Dr. Orlando Jacob MD -[facility] Start: 03-19-2025 End: 03-19-2025 [facility] Daron [place] Facility:[facility] Start: 03-09-2025 End: 03-09-2025 Telephone encounter Lizz Lynn APRN - [facility] Work Phone: [facility] Comment on above: Orders (MRI order) Start: 03-04-2025 End: 03-04-2025 Office outpatient visit 15 minutes Lizz Lynn AUDIO VIDEO TECH - [employer] [employer]OM[employer] Work Phone: [facility] Comment on above: Multiple sclerosis ( HCC) (Primary Dx); Mild cognitive impairment; Fatigue, unspecified type; Deficiency of multiple nutrient elements Start: 03-04-2025 End: 03-04-2025 ambulatory [facility] Start: 02-20-2025 End: 02-20-2025 Patient encounter procedure Betsey Lindquist [facility] Work Phone: Start: 02-20-2025 End: 02-20-2025 Betsey Lindquist [facility] Work Phone: Start: 02-20-2025 End: 02-20-2025 ambulatory [facility] Facility:[facility] Start: 01-15-2025 End: 01-15-[address] Daron Benton MD -Radiology [place] Work Phone: Start: 01-15-2025 End: 01-15-2025 Dr. Daron Benton MD -Radiology [place] Work Phone: Start: 01-15-2025 End: 01-15-2025 ambulatory Daron Benton Facility:[facility] Start: 01-13-2025 Non-patient / Non-visit Dr. Damian silva [facility] Work Phone: Start: 01-13-2025 Dr. Dex claros [facility] Work Phone: Start: 01-12-2025 Non-patient / Non-visit Dr. Damian silva [facility] Work Phone: Start: 01-12-2025 [facility] Work Phone: Start: 01-12-2025 Non-patient / Non-visit Dr. Rafaela Smiley MD -[facility] Start: 01-12-2025 Dr. Bhavik blevins MD -[facility] Start: 01-12-2025 ambulatory Kofi Weiner Facility:[facility] Start: 01-12-2025 Non-patient / Non-visit Dr. Kacie Weiner MD -[facility] Start: 01-12-2025 Dr. Kofi Weiner MD [facility] Start: 01-11-2025 Non-patient / Non-visit Dr. Kacie Watson MD -[facility] Work Phone: Start: 01-11-2025 Dr. Neha simpson MD -[facility] Work Phone: Start: 01-11-2025 Non-patient / Non-visit Dr. Carlos A olea MD -[facility] Start: 01-11-2025 Dr. Carlos A Parikh MD -[facility] Start: 01-10-2025 ambulatory Benjy Flores Facility: [facility] Start: 01-10-2025 End: 01-13-2025 Evaluation and management of inpatient Dr. Dex Worrell DO -Progressive Care Unit Work Phone: Start: 01-10-2025 End: 01-13-2025 Dr. Dex Worrell DO -Progressive Care Unit Work Phone: Start: 12-24-2024 End: 12-24-2024 Patient encounter procedure CLINICAL PSYCHOLOGY [facility]ESS[facility] Work [facility]: Start: 12-24-2024 End: 12-24-2024 CLINICAL PSYCHOLOGY PROFESSOR [facility] Work Phone: Start: 12-24-2024 End: 12-24-2024 ambulatory Negar Mckeon Facility:[facility] Start: 12-19-2024 End: 12-19-2024 Patient encounter procedure Betsey Lindquist [facility] Work Phone: Start: 12-19-2024 End: 12-19-2024 Betsey Lindquist [facility] Work Phone: Start: 12-19-2024 End: 12-19-2024 ambulatory Daron Benton Facility:[facility] Start: 12-17-2024 End: 12-17-2024 Dr. Jeffy Willoughby MD -Emergency [facility] t Work Phone: Start: 12-17-2024 End: 12-17-2024 Emergency department patient visit Daron Benton Facility:[facility] Start: 12-11-2024 Dr. Neha simpson MD -[facility] Work Phone: Start: 12-10-2024 Dr. Neha simpson MD -[facility] Work Phone: Start: 12-10-2024 Dr. Kofi Weiner MD -[facility] Start: 12-09-2024 End: 12-11-2024 ambulatory Trina Tyler Facility:[facility] Start: 12-09-2024 End: 12-11-2024 Dr. Neha Watson MD -Progressive Care Unit Work Phone: Start: 11-28-2024 End: 11-28-2024 Emergency department patient visit Daron Benton Facility:[facility] Start: 11-24-2024 End: 11-24-2024 ambulatory Daron Benton Facility:[facility] Start: 11-20-2024 End: 11-20-2024 Refill Lizz Lynn AUDIO VIDEO TECH - [facility]OM[facility] Work Phone: [facility] Comment on above: Multiple sclerosis ( HCC) Start: 10-08-2024 End: 10-08-2024 ambulatory Daron Benton Facility:[facility] Start: 10-06-2024 ambulatory Daron Benton Facility:[facility] Start: 10-03-2024 End: 10-03-2024 ambulatory Daron Benton Facility:[facility] Start: 10-01-2024 End: 10-01-2024 ambulatory Daron Benton Facility:[facility] Start: 09-14-2024 End: 09-15-2024 Refill Mamta Wood AUDIO VIDEO TECH - [facility]OMCORN Work Phone: [facility] Comment on above: Multiple sclerosis ( HCC) Start: 08-27-2024 End: 08-27-2024 ambulatory Daron Benton Facility:[facility] Start: 08-25-2024 End: 08-25-2024 ambulatory Daron Benton Facility:[facility] Start: 08-21-2024 End: 08-21-2024 ambulatory Daron Benton Facility:[facility] Start: 08-14-2024 End: 08-14-2024 ambulatory Daron Benton Facility:[facility] Start: 06-19-2024 End: 06-19-2024 ambulatory Kevin Friend Facility:[facility] Start: 06-19-2024 End: 06-19-2024 ambulatory [facility] Facility:[facility] Start: 02-29-2024 End: 02-29-[address] Daron Benton Work Phone: [facility] Work Phone: Start: 02-29-2024 End: 02-29-2024 Dr. Daron Benton Work Phone: [facility] Start: 02-25-2024 Dr. Daron Benton Work Phone: [facility] Work Phone: Start: 02-25-2024 Dr. Daron Benton Work Phone: [facility] Start: 02-24-2024 Dr. Daron Benton Work Phone: [facility] Work Phone: Start: 02-24-2024 End: 02-24-2024 Dr. Daron Benton Work Phone: [facility] Work Phone: Start: 02-23-2024 End: 02-23-2024 Dr. Daron Benton Work Phone: [facility] Work Phone: Start: 02-23-2024 Dr. Daron Benton Work Phone: [facility] Start: 02-23-2024 Dr. Daron Benton Work Phone: [facility] Work Phone: Start: 02-22-2024 Dr. Daron Benton Work Phone: [facility] Start: 02-22-2024 Dr. Daron Benton Work Phone: [facility] Work Phone: Start: 02-21-2024 Dr. Daron Benton Work Phone: [facility] Start: 02-21-2024 Dr. Daron Benton Work Phone: [facility] Work Phone: Start: 02-20-2024 Dr. Daron Benton Work Phone: [facility] Work Phone: Start: 02-19-2024 Dr. Daron Benton Work Phone: [facility] Start: 02-19-2024 End: 02-25-2024 Evaluation and management of inpatient Dr. Daron Benton Work Phone: [facility] Work Phone: Start: 02-19-2024 End: 02-25-2024 Dr. Daron Benton Work Phone: [facility] Work Phone: Start: 02-11-2024 Ankit Main MD Work Phone: [facility] Comment on above: Multiple sclerosis ( HCC) Start: 01-18-2024 End: 01-18-2024 Emergency department patient visit Dr. Daron Benton Work Phone: [facility] Work Phone: Start: 01-18-2024 End: 01-18-2024 Dr. Daron Benton Work Phone: [facility]-Emergency Department Work Phone: Start: 01-18-2024 End: 01-18-[address] Daron Benton Work Phone: [facility] Work Phone: Start: 01-18-2024 End: 01-18-2024 Dr. Daron Benton Work Phone: [facility] Start: 01-11-2024 End: 01-11-2024 Emergency department patient visit Dr. Daron Benton Work Phone: [facility] Work Phone: Start: 01-11-2024 End: 01-11-2024 Dr. Daron Benton Work Phone: [facility]-Emergency Department Work Phone: Start: 01-08-2024 Dr. Daron Benton Work Phone: [facility]-Physical Therapy Work Phone: Start: 12-21-2023 End: 12-21-2023 Dr. Daron Benton Work Phone: [facility]-Laboratory Work Phone: Start: 12-21-2023 End: 12-21-2023 Dr. Daron Benton Work Phone: [facility] Work Phone: Start: 12-14-2023 End: 12-14-2023 Office outpatient visit 40 minutes Lizz Lynn APRN [facility] Work Phone: [facility] Comment on above: Multiple sclerosis ( HCC) (Primary Dx); Dizziness; Imbalance; Vision disturbance Start: 12-07-2023 Dr. Daron Benton Work Phone: [facility] Work Phone: Start: 12-06-2023 Dr. Daron Benton Work Phone: [facility] Work Phone: Start: 12-05-2023 Dr. Daron Benton Work Phone: [facility] Work Phone: Start: 12-05-2023 Dr. Daron Benton Work Phone: [facility] Start: 12-04-2023 Dr. Daron Benton Work Phone: [facility] Work Phone: Start: 12-04-2023 Dr. Daron Benton Work Phone: [facility] Start: 12-03-2023 Dr. Daron Benton Work Phone: [facility] Work Phone: Start: 12-02-2023 End: 12-07-2023 Evaluation and management of inpatient Dr. Daron Benton Work Phone: [facility] Work Phone: Start: 12-02-2023 End: 12-07-2023 Dr. Daron Benton Work Phone: [facility] Work Phone: Start: 11-27-2023 End: 11-27-2023 Emergency department patient visit Dr. Daron Benton Work Phone: [facility]-Emergency Department Work Phone: Start: 11-27-2023 End: 11-27-2023 Dr. Daron Benton Work Phone: [facility]-Emergency Department Work Phone: Start: 11-26-2023 End: 11-26-2023 Emergency department patient visit Dr. Daron Benton Work Phone: [facility]-Emergency Department Work Phone: Start: 11-26-2023 End: 11-26-2023 Dr. Daron Benton Work Phone: [facility]-Emergency Department Work Phone: Start: 11-21-2023 Non-patient / Non-visit Dr. Sarah Benton Work Phone: [facility] Work Phone: Start: 11-21-2023 Dr. Daron Benton Work Phone: [facility] Work Phone: Start: 11-20-2023 Non-patient / Non-visit Dr. Sarah Benton Work Phone: [facility] Work Phone: Start: 11-20-2023 Dr. Daron Benton Work Phone: [facility] Work Phone: Start: 11-19-2023 Non-patient / Non-visit Dr. Sarah Benton Work Phone: [facility] Start: 11-19-2023 Dr. Daron Benton Work Phone: [facility] Start: 11-18-2023 End: 11-21-2023 Evaluation and management of [facility] Start: 11-18-2023 End: 11-21-2023 Dr. Daron Benton Work Phone: [facility] Work Phone: Start: 11-16-2023 Non-patient / Non-visit Dr. Sarah Benton Work Phone: [facility] Work Phone: Start: 11-16-2023 Dr. Daron Benton Work Phone: [facility] Work Phone: Start: 11-15-2023 End: 11-16-2023 Evaluation and management of inpatient Dr. Daron Benton Work Phone: [facility] 3 Work Phone: Start: 11-15-2023 End: 11-16-2023 Dr. Daron Benton Work Phone: [facility] Work Phone: Start: 11-02-2023 End: 11-02-[address] Daron Benton Work Phone: [facility] Work Phone: Start: 11-02-2023 End: 11-02-2023 Dr. Daron Benton Work Phone: [facility] Work Phone: Start: 10-26-2023 End: 10-26-2023 ambulatory TYE BARNETT MD Facility:A Start: 10-22-2023 End: 10-22-[address] Daron Benton Work Phone: [facility] Work Phone: Start: 10-22-2023 End: 10-22-[address] [facility] Work Phone: Start: 10-22-2023 End: 10-22-2023 Dr. D[facility]enton [facility] Work [facility]: Start: 10-22-2023 End: 10-22-[address] Daron Benton Work Phone: [facility] Work Phone: Start: 10-22-2023 End: 10-22-2023 Dr. Daron Benton Work Phone: [facility] Work Phone: Start: 10-05-2023 End: 10-05-2023 Office outpatient visit 40 minutes Kristopher Main MD Work Phone: [facility] Comment on above: Multiple sclerosis ( HCC) (Primary Dx); Cerebrovascular disease, unspecified; Primary hypertension Start: 10-05-2023 Telephone encounter Kristopher baez MD Work Phone: [facility] Comment on above: Orders Start: 10-05-2023 End: 10-05-2023 Emergency department patient visit Dr. Daron Benton Work Phone: [facility]-Emergency Department Work Phone: Start: 10-05-2023 End: 10-05-2023 Dr. Daron Benton Work Phone: [facility]-Emergency Department Work Phone: Start: 09-04-2023 End: 09-04-[address] Daron Benton Work Phone: [facility] Work Phone: Start: 09-04-2023 End: 09-04-2023 Dr. Daron Benton Work Phone: [facility] Work Phone: Start: 09-04-2023 End: 09-04-[address] Daron Benton Work Phone: [facility] Work Phone: Start: 09-04-2023 End: 09-04-[address] [facility] Start: 09-04-2023 End: 09-04-2023 Dr. [facility] Start: 08-21-2023 End: 08-21-[address] Daron Benton Work Phone: [facility] Start: 08-21-2023 End: 08-21-2023 Dr. Daron Benton Work Phone: [facility] Start: 07-26-2023 End: 07-26-[address] Daron Benton Work Phone: [facility] Work Phone: Start: 07-26-2023 End: 07-26-[address] Daron Benton Work Phone: [facility]-Cardiovascular Services Work Phone: Start: 06-15-2023 Refill Kristopher Main MD Work Phone: [facility] Comment on above: Multiple sclerosis ( HCC) Start: 06-04-2023 Telephone encounter Kristopher baez MD Work Phone: [facility] Comment on above: Med Refill Start: 05-24-2023 End: 05-24-[address] Daron Benton Work Phone: [facility] Work Phone: Start: 05-10-2023 Refill Kristopher Main MD Work Phone: [facility] Start: 04-26-2023 End: 04-26-[address] Daron Benton Work Phone: [facility] Work Phone: Start: 04-26-2023 End: 04-26-[address] Daron Benton Work Phone: [facility] Start: 04-25-2023 End: 04-25-[address] Daron Benton Work Phone: [facility] Start: 04-14-2023 End: 04-14-[address] Daron Benton Work Phone: [facility] Work Phone: Start: 04-14-2023 End: 04-14-[address] Daron Benton Work Phone: [facility] Start: 04-10-2023 End: 04-10-[address] Daron Benton Work Phone: [facility] Work Phone: Start: 04-10-2023 End: 04-10-[address] Daron Benton Work Phone: [facility]-Nuclear Medicine, [facility] Start: 04-08-2023 End: 04-08-2023 Emergency department patient visit Dr. Daron Benton Work Phone: [facility]-Emergency Department Start: 04-02-2023 End: 04-02-[address] Daron Benton Work Phone: [facility] Start: 03-31-2023 End: 03-31-2023 Emergency department patient visit Dr. Daron Benton Work Phone: [facility]-Emergency Department Start: 03-20-2023 End: 03-20-[address] Daron Benton Work Phone: [facility] Work Phone: Start: 03-20-2023 End: 03-20-[address] Daron Benton Work Phone: [facility] Start: 03-16-2023 End: 03-16-2023 Emergency department patient visit Dr. Daron Benton Work Phone: [facility]-Emergency Department Start: 02-01-2023 End: 02-01-[address] Daron Benton Work Phone: [facility] Work Phone: Start: 02-01-2023 End: 02-01-[address] Daron Benton Work Phone: [facility]-Outpatient Bone Densitometry Start: 01-22-2023 End: 01-22-[address] Daron Benton Work Phone: [facility] Start: 12-27-2022 End: 12-27-[address] Daron Benton Work Phone: [facility] Start: 12-20-2022 End: 12-20-[address] Daron Benton Work Phone: [facility] Start: 12-13-2022 End: 12-13-[address] Daron Benton Work Phone: [facility] Start: 12-04-2022 End: 12-04-[address] Daron Benton Work Phone: [facility] Start: 11-24-2022 End: 11-24-2022 Emergency department patient visit Dr. Daron Benton Work Phone: [facility]-Emergency Department Start: 11-21-2022 Non-patient / Non-visit Dr. Sarah Benton Work Phone: [facility] Start: 11-21-2022 End: 11-21-[address] Daron Benton Work Phone: [facility] Work Phone: Start: 11-21-2022 End: 11-21-[address] Daron Benton Work Phone: [facility]-Cardiovascular Services Start: 11-09-2022 End: 11-09-2022 SAME DAY STAY TYE BARNETT MD [facility] Start: 10-26-2022 End: 10-26-[address] Daron Benton Work Phone: [facility] Start: 10-20-2022 End: 10-20-[address] Daron Benton Work Phone: [facility] Start: 10-09-2022 End: 10-09-[address] Daron Benton Work Phone: [facility] Start: 09-26-2022 End: 09-26-2022 ambulatory [facility] Work Phone: Start: 09-26-2022 End: 09-26-2022 [facility] Start: 09-03-2022 Transcribe Orders Kristopher olson MD Work Phone: [facility] [place] Comment on above: Other specified symp toms and signs involving the circulatory and respiratory systems (Primary Dx); Cerebrovascular disease, unspecified Start: 08-23-2022 End: 08-23-[address] Daron Benton Work Phone: [facility] Work Phone: Start: 08-23-2022 End: 08-23-[address] [facility] Start: 05-16-2022 End: 05-16-[address] Daron Benton Work Phone: [facility] Start: 05-02-2022 End: 05-02-[address] Daron Benton Work Phone: [facility] Start: 02-22-2022 End: 02-22-[address] Daron Benton Work Phone: [facility] Start: 02-20-2022 End: 02-20-2022 Emergency department patient visit Dr. Daron Benton Work Phone: [facility]-Emergency Department Start: 02-18-2022 End: 02-18-2022 Emergency department patient visit Dr. Daron Benton Work Phone: [facility]-Emergency Department Start: 02-17-2022 End: 02-17-2022 Emergency department patient visit Dr. Daron Benton Work Phone: [facility]-Emergency Department Start: 02-14-2022 End: 02-14-2022 Emergency department patient visit Dr. Daron Benton Work Phone: [facility]-Emergency Department Start: 02-08-2022 End: 02-08-[address] Daron Benton Work Phone: [facility] Start: 01-23-2022 End: 01-23-2022 Emergency department patient visit Dr. Daron Benton Work Phone: [facility]-Emergency Department Start: 01-18-2022 End: 01-18-2022 Admission to same day surgery center Dr. Daron Benton Work Phone: [facility]-Bar Assistant/Special Procedures Start: 11-17-[address] Daron Benton Work Phone: [facility]-Cat Scan, [facility] Start: 10-21-2021 End: 10-21-[address] Daron Benton Work Phone: [facility] Start: 08-11-[address] Daron Benton Work Phone: [facility] Start: 08-11-[address] Daron lin MD Work Phone: [facility] Start: 11-25-2020 End: 11-25-2020 Subsequent hospital visit by physician Xr [facility] Work Phone: Radiology Comment on above: Cough [R05] Start: 12-21-2017 End: 12-21-2017 Ambulatory YOGESH ROB[facility] Procedures Date Procedure Procedure Detail Performing Clinician Start: 05-20-2025 MRI of brain without contrast Dr. Daron sandoval MD Work Phone: Start: 05-15-2025 Blood count smear mcrscp w/mnl [...] Start: 02-22-[address] Daron allred Work Phone: Start: 02-20-[address] Daron Munguia Work Phone: Start: 02-19-2024 Legionella pneumophila antigen [...] contrast Dr. Daron saleh Work Phone: Start: 01-11-2024 Plain chest X-ray Dr. Daron Benton Work Phone: Start: 12-05-2023 MRI of brain without contrast Dr. Daron sandoval Work Phone: Start: 12-05-2023 CT of head without contrast Dr. Daron Scott Work Phone: Start: 12-04-2023 Diagnostic radiography of abdomen Dr. Sarah Benton Work Phone: Start: 12-03-2023 CT angiography [...] 11-15-2023 SARS-CoV-2, Influenza & RSV (PCR) Dr. Sarah Benton Work Phone: Start: 11-15-2023 Dr. Daron Benton Work Phone: Start: 11-15-2023 Plain chest X-ray Dr. Daron Benton Work Phone: Start: 10-05-2023 CT of head without contrast Dr. Daron saleh Work Phone: Start: 10-05-2023 Plain chest X-ray [...] Start: 03-16-2023 X-ray of both feet Dr. aDron Benton Work Phone: Start: 02-01-2023 Dual energy X-ray absorptiometry Dr. Nila Benton Work Phone: Start: 12-04-2022 Radiologic examination of knee Dr. Daron Benton Work Phone: Start: 05-02-2022 MRI of brain with contrast Dr. Daron Munguia h Work Phone: Start: 02-20-2022 Plain chest X-ray [...] Radiologic exam chest 2 views Paloma Thompson APRN.[employer] [employer]CORN Work Phone: Start: 04-19-2016 Lipid 1996 panel - Serum or Plasma Kristopher Main MD Work Phone: Start: 01-20-2016 Colonoscopy Xr Zack Work Phone: Start: 12-08-2011 Lipid 1996 panel [...] DTaP/Tdap/Td Vaccines (3 - Td or Tdap) [facility] Start: 02-09-2031 Urine microalbumin profile DTaP,Tdap,Td Vaccine (3 - Td or Tdap) [facility] Start: 2029 RSV Vaccine (1 - 1-dose 75+ series) RSV Vaccine (1 - 1-dose 75+ series) [facility] Start: 07-20-2025 Influenza vaccination Influenza Vaccine (Season Ended) [facility] Start: 06-03-2025 End: 06-03-2025 Patient encounter procedure 06/03/2025 12:30 PM EDT Office Visit [facility] [address] [place] [id number] Lizz Lynn, ANTWON - [facility] BROOMCORN [address] [place] [id number] [facility] Start: 05-19-2025 [facility] Start: 04-22-2025 Patient discharge [facility] Start: 04-21-2025 [facility] Start: 04-20-2025 Insertion of nasogastric tube [facility] Start: 04-20-2025 [facility] Start: 04-20-2025 End: 04-20-2025 [facility] Start: 04-20-2025 Referral to service [facility] Start: 04-19-2025 Referral to gastroenterology service [facility] Start: 04-19-2025 Administration of blood product [facility] Start: 04-18-2025 Application of intermittent pneumatic compression device [facility] Start: 04-18-2025 Ambulation without limitation [facility] Start: 04-18-2025 Assessment of risk of venous thromboembolism [facility] Start: 04-18-2025 Insertion of catheter into peripheral vein [facility] Start: 04-18-2025 Providing care according to standard [facility] Start: 04-18-2025 [facility] Start: 04-18-2025 Following clinical pathway protocol [facility] Start: 04-18-2025 Verification routine [facility] Start: 04-18-2025 Admission procedure [facility] Start: 04-18-2025 Hospital admission, emergency, from emergency room, medical nature [facility] Start: 04-18-2025 End: 04-19-2025 [facility] Start: 04-18-2025 [facility] Start: 04-18-2025 Patient referral to dietitian [facility] Start: 04-17-2025 Emergency dept visit high severity&threat funcj [facility] Start: 04-11-2025 [facility] Start: 04-02-2025 [facility] Start: 03-04-2025 End: 03-04-2026 Cobalamin (Vitamin B12) [Mass/volume] in Serum or Plasma Vitamin B12 Lab Routine Mild cognitive impairment Deficiency of multiple nutrient elements Expected: 03/04/2025 (Approximate), Expires: 03/04/2026 [facility] [employer] Comment on above: Expected: 03/04/2025 (Approximate), Expi res: 03/04/2026 Start: 03-04-2025 End: 03-04-2026 Electroencephalogram EEG Neurology Routine Mild cognitive impairment Expected: 03/04/2025 (Approximate), Expires: 03/04/2026 [facility] Work Phone: Comment on above: Expected: 03/04/2025 (Approximate), Expi res: 03/04/2026 Start: 03-04-2025 End: 03-04-2026 MR Brain WO contrast MR brain wo contrast Imaging Routine Mild cognitive impairment Expected: 03/04/2025, Expires: 03/04/2026 [employer] [employer] Comment on above: Expected: 03/04/2025, Expires: Start: 03-04-2025 End: 03-04-2026 Thyrotropin [Units/volume] in Serum or Plasma TSH Lab Routine Mild cognitive impairment Fatigue, unspecified type Expected: 03/04/2025 (Approximate), Expires: 03/04/2026 [facility] [employer] Comment on above: Expected: 03/04/2025 (Approximate), Expi res: 03/04/2026 Start: 03-04-2025 End: 03-04-2026 Vitamin B1 ([facility]) Vitamin B1 ([facility]) Lab Routine Mild cognitive impairment Deficiency of multiple nutrient elements Expected: 03/04/2025 (Approximate), Expires: 03/04/2026 [employer] Comment on above: Expected: 03/04/2025 (Approximate), Expi res: 03/04/2026 Start: 03-04-2025 End: 03-04-2026 Vitamin B6 Vitamin B6 Lab Routine Mild cognitive impairment Deficiency of multiple nutrient elements Expected: 03/04/2025 (Approximate), Expires: 03/04/2026 [facility] [employer] Comment on above: Expected: 03/04/2025 (Approximate), Expi res: 03/04/2026 Start: 01-13-2025 Patient discharge [facility] Start: 01-11-2025 Following clinical pathway protocol [facility] Start: 01-11-2025 Assessment of risk of venous thromboembolism [facility] Start: 01-11-2025 Fall prevention [facility] Start: 01-11-2025 Inhalation therapy procedure [facility] Start: 01-11-2025 Insertion of catheter into peripheral vein [facility] Start: 01-11-2025 Introduction of urinary catheter [facility] Start: 01-11-2025 Measuring intake and output [facility] Start: 01-11-2025 Oxygen therapy [facility] Start: 01-11-2025 Providing care according to standard [facility] Start: 01-11-2025 Provision of activity privileges [facility] Start: 01-11-2025 Referral to mexican food cook [facility] Start: 01-11-2025 Referral to occupational therapist [facility] Start: 01-11-2025 Referral to service [facility] Start: 01-11-2025 Tobacco use cessation education [facility] Start: 01-11-2025 [facility] Start: 01-11-2025 Patient referral to dietitian [facility] Start: 01-10-2025 Admission procedure [facility] Start: 12-17-2024 [facility] Start: 12-11-2024 Patient discharge [facility] Start: 12-10-2024 Cardiac monitoring [facility] Start: 12-10-2024 Notification of physician [facility] Start: 12-10-2024 Oxygen therapy [facility] Start: 12-10-2024 Patient discharge [facility] Start: 12-10-2024 Patient education [facility] Start: 12-10-2024 Provision of activity privileges [facility] Start: 12-10-2024 Pulse taking [facility] Start: 12-10-2024 Systemic arterial pressure monitoring [facility] Start: 12-10-2024 Taking patient vital signs [facility] Start: 12-10-2024 Vascular disease risk assessment [facility] Start: 12-10-2024 Vital signs measurements [facility] Start: 12-10-2024 Wound care [facility] Start: 12-10-2024 [facility] Start: 12-09-2024 Referral to mexican food cook [facility] Start: 12-09-2024 Following clinical pathway protocol [facility] Start: 12-09-2024 Assessment of risk of venous thromboembolism [facility] Start: 12-09-2024 Insertion of catheter into peripheral vein [facility] Start: 12-09-2024 Measuring intake and output [facility] Start: 12-09-2024 Oxygen therapy [facility] Start: 12-09-2024 Providing care according to standard [facility] Start: 12-09-2024 Provision of activity privileges [facility] Start: 12-09-2024 Referral to occupational therapist [facility] Start: 12-09-2024 Referral to service [facility] Start: 12-09-2024 Tobacco use cessation education [facility] Start: 12-09-2024 [facility] Start: 12-09-2024 Admission procedure [facility] Start: 12-09-2024 Patient referral to dietitian [facility] Start: 12-08-2024 End: 12-08-2024 Patient encounter procedure 12/08/2024 11:30 AM EST Office Visit [facility] [address] [place] [id number] Mamta Wood APRN - CNP [address] [place] [address] [facility] Start: 11-19-2024 Medicare Advantage Annual Wellness Visit Medicare Advantage Annual Wellness Visit [facility] Start: 07-20-2024 Covid-19 Vaccine ( season) Covid-19 Vaccine ( season) [facility] Start: 07-20-2024 COVID-19 Vaccine () COVID-19 Vaccine () [facility] Start: 07-20-2024 Influenza vaccination Influenza Vaccine (#1) [facility] Start: 02-25-2024 Patient discharge [facility] Start: 02-23-2024 End: 02-24-2024 [facility] Start: 02-22-2024 End: 02-22-2024 Administration of blood product [facility] Start: 02-22-2024 Transfusion of red blood cells [facility] Start: 02-22-2024 Referral to service [facility] Start: 02-22-2024 Blood chemistry [facility] Start: 02-22-2024 [facility] Start: 02-21-2024 Oxygen therapy [facility] Start: 02-21-2024 Blood chemistry [facility] Start: 02-21-2024 End: 02-22-2024 [facility] Start: 02-20-2024 Referral to occupational therapist [facility] Start: 02-20-2024 Referral to service [facility] Start: 02-20-2024 [facility] Start: 02-20-2024 Blood chemistry [facility] Start: 02-20-2024 End: 02-20-2024 [facility] Start: 02-19-2024 [facility] Start: 02-19-2024 Following clinical pathway protocol [facility] Start: 02-19-2024 Ambulation without limitation [facility] Start: 02-19-2024 Assessment of risk of venous thromboembolism [facility] Start: 02-19-2024 Elevation of head of bed [facility] Start: 02-19-2024 Inhalation therapy procedure [facility] Start: 02-19-2024 Insertion of catheter into peripheral vein [facility] Start: 02-19-2024 Measuring intake and output [facility] Start: 02-19-2024 Patient education [facility] Start: 02-19-2024 Providing care according to standard [facility] Start: 02-19-2024 Referral to gastroenterology service [facility] Start: 02-19-2024 End: 02-19-2024 [facility] Start: 02-19-2024 End: 02-19-2024 [facility] Start: 02-19-2024 Bacteria identified in Sputum by Culture [facility] Start: 02-19-2024 Legionella pneumophila Ag [Presence] in Urine [facility] Start: 02-19-2024 Streptococcus pneumoniae antigen assay [facility] Start: 02-19-2024 Verification routine [facility] Start: 02-19-2024 Admission procedure [facility] Start: 02-19-2024 End: 02-19-2024 Blood culture [facility] Start: 02-19-2024 [facility] Start: 02-19-2024 Administration of blood product [facility] Start: 02-19-2024 End: 02-20-2024 [facility] Start: 01-25-2024 End: 01-25-2024 Patient encounter procedure 01/25/2024 12:30 PM EST Office Visit [facility] [address] [facility] [address] [place] [id number] Lizz Lynn, ANTWON - THRESHER BROOMCORN [address] [place] [id number] [facility] Start: 01-18-2024 [facility] Start: 01-11-2024 [facility] Start: 01-11-2024 [facility] Start: 12-07-2023 Patient discharge [facility] Start: 12-07-2023 Referral to service [facility] Start: 12-06-2023 Care planning and problem solving actions [facility] Start: 12-05-2023 [facility] Start: 12-04-2023 End: 12-05-2023 [facility] Start: 12-04-2023 Following clinical pathway protocol [facility] Start: 12-03-2023 End: 12-04-2023 [facility] Start: 12-03-2023 Care planning and problem solving actions [facility] Start: 12-03-2023 Care planning and problem solving actions [facility] Start: 12-03-2023 Speech therapy assessment [facility] Start: 12-03-2023 Inhalation therapy procedure [facility] Start: 12-02-2023 [facility] Start: 12-02-2023 Providing care according to standard [facility] Start: 12-02-2023 Ambulation without limitation [facility] Start: 12-02-2023 Assessment of risk of venous thromboembolism [facility] Start: 12-02-2023 Insertion of catheter into peripheral vein [facility] Start: 12-02-2023 Measuring intake and output [facility] Start: 12-02-2023 Oxygen therapy [facility] Start: 12-02-2023 Providing care according to standard [facility] Start: 12-02-2023 Referral to occupational therapist [facility] Start: 12-02-2023 Referral to service [facility] Start: 12-02-2023 Telemedicine consultation with patient [facility] Start: 12-02-2023 [facility] Start: 12-02-2023 Blood culture [facility] Start: 12-02-2023 Verification routine [facility] Start: 12-02-2023 Hospital admission, emergency, from emergency room, medical nature [facility] Start: 12-02-2023 Admission procedure [facility] Start: 12-02-2023 [facility] Start: 12-02-2023 End: 12-02-2023 [facility] Start: 12-02-2023 [facility] Start: 11-27-2023 [facility] Start: 11-27-2023 Oxygen therapy [facility] Start: 11-27-2023 [facility] Start: 11-26-2023 [facility] Start: 11-21-2023 Patient discharge [facility] Start: 11-19-2023 Advance Directive Discussion Advance Directive Discussion [facility] Start: 11-19-2023 Medicare Advantage Annual Wellness Visit Medicare Advantage Annual Wellness Visit [facility] Start: 11-18-2023 Application of intermittent pneumatic compression device [facility] Start: 11-18-2023 Provision of activity privileges [facility] Start: 11-18-2023 Assessment of risk of venous thromboembolism [facility] Start: 11-18-2023 Fall prevention [facility] Start: 11-18-2023 Insertion of catheter into peripheral vein [facility] Start: 11-18-2023 Introduction of urinary catheter [facility] Start: 11-18-2023 Measuring intake and output [facility] Start: 11-18-2023 Providing care according to standard [facility] Start: 11-18-2023 Referral to occupational therapist [facility] Start: 11-18-2023 Referral to service [facility] Start: 11-18-2023 [facility] Start: 11-18-2023 Following clinical pathway protocol [facility] Start: 11-18-2023 Admission procedure [facility] Start: 11-16-2023 Patient discharge [facility] Start: 11-16-2023 Plain chest X-ray Chest 1 View (Portable) [facility] Start: 11-16-2023 XR Chest Single view [facility] Start: 11-16-2023 [facility] Start: 11-15-2023 Respiratory secretion precautions [facility] Start: 11-15-2023 Following clinical pathway protocol [facility] Start: 11-15-2023 Aspiration precautions [facility] Start: 11-15-2023 Assessment of risk of venous thromboembolism [facility] Start: 11-15-2023 Fall prevention [facility] Start: 11-15-2023 Incentive spirometry [facility] Start: 11-15-2023 Inhalation therapy procedure [facility] Start: 11-15-2023 Insertion of catheter into peripheral vein [facility] Start: 11-15-2023 Introduction of urinary catheter [facility] Start: 11-15-2023 Measuring intake and output [facility] Start: 11-15-2023 Oxygen therapy [facility] Start: 11-15-2023 Providing care according to standard [facility] Start: 11-15-2023 Provision of activity privileges [facility] Start: 11-15-2023 Referral to occupational therapist [facility] Start: 11-15-2023 Referral to service [facility] Start: 11-15-2023 [facility] Start: 11-15-2023 Verification routine [facility] Start: 11-15-2023 Admission procedure [facility] Start: 11-15-2023 Hospital admission, emergency, from emergency room, medical nature [facility] Start: 11-15-2023 [facility] Start: 11-15-2023 Consultation [facility] Start: 10-05-2023 [facility] Start: 10-05-2023 [facility] Start: 07-20-2023 COVID-19 Vaccine ( season) COVID-19 Vaccine ( season) [facility] Start: 07-20-2023 Influenza vaccination Influenza Vaccine (#1) [facility] Start: 04-08-2023 [facility] Start: 04-04-2023 End: 04-04-2023 Patient encounter procedure 04/04/2023 Office Visit Neurology Kristopher Main MD [address] [facility] [address] [place] [address] [facility] Start: 03-31-2023 [facility] Start: 02-01-2023 Dual energy X-ray absorptiometry Dexa Bone Density Study [facility] Start: 02-20-2022 [facility] Work Phone: Start: 10-21-2021 Patient referral [facility] Work Phone: Start: 04-19-2021 Lipid panel Lipid Panel [facility] Start: 01-19-2021 Screening for malignant neoplasm of colon [facility] Start: 2019 Pneumococcal Vaccine: 65+ (2 of 2 - PCV) Pneumococcal Vaccine: 65+ (2 of 2 - PCV) [facility] Start: 2019 Screening for osteoporosis Bone Density Screening [facility] Start: 12-08-2016 Lipid panel Lipid Screening [facility] Start: 08-19-2016 Diabetes Screening Diabetes Screening [facility] Start: 2014 RSV Immunization aged 60 or older (1 - 1-dose 60+ series) RSV Immunization aged 60 or older (1 - 1-dose 60+ series) [facility] Start: 2014 RSV Immunization for Adults (1 - Risk 60-74 years 1-dose series) RSV Immunization for Adults (1 - Risk 60-74 years 1-dose series) [facility] Start: 08-26-2010 Screening for malignant neoplasm of breast Mammogram Screening [facility] Start: 08-19-2009 Pneumococcal Vaccine: 50+ Years (2 of 2 - PCV) Pneumococcal Vaccine: 50+ Years (2 of 2 - PCV) [facility] Start: 08-19-2009 Pneumococcal Vaccine: 65+ Years (2 - PCV) Pneumococcal Vaccine: 65+ Years (2 - PCV) [facility] Start: 08-19-2009 Pneumococcal Vaccine: 65+ Years (2 of 2 - PCV) Pneumococcal Vaccine: 65+ Years (2 of 2 - PCV) [facility] Start: 2004 Shingrix Vaccine (1 of 2) Shingrix Vaccine (1 of 2) [facility] Start: 2004 Zoster Vaccines (1 of 2) Zoster Vaccines (1 of 2) [facility] Start: 1999 Screening for malignant neoplasm of colon [facility] Start: 1994 Screening for malignant neoplasm of breast Mammogram [facility] Start: 1972 Anxiety Screening Anxiety Screening [facility] Start: 1972 Depression Screening Depression Screening [facility] Start: 1972 Diabetes mellitus screening Diabetes Screening [facility] Start: 1972 Hepatitis C screening Hepatitis C Screening [facility] Start: 1966 Depression Monitoring Depression Monitoring [facility] Start: 1966 Depression Screening Depression Screening [facility] Start: 1954 Hepatitis B Vaccines (1 of 3 - 3-dose series) Hepatitis B Vaccines (1 of 3 - 3-dose series) [facility] Start: 1954 Lipid panel Lipid Panel [facility] Start: 1954 Medicare Advantage Annual Wellness Visit (AWV) Medicare Advantage Annual Wellness Visit (AWV) [facility] Start: 1954 Screening for malignant neoplasm of colon [facility] Start: 1954 Screening for osteoporosis Bone Density Scan [facility] Start: 1954 Thyroid stimulating hormone measurement TSH Level [facility] Alanine aminotransfe rase [Enzymatic activity/volume] in Serum or Plasma [facility] Alanine aminotransfe rase [Enzymatic activity/volume] in Serum or Plasma [facility] Alanine aminotransfe rase [Enzymatic activity/volume] in Serum or Plasma [facility] Albumin [Mass/volume ] in Serum or Plasma [facility] Albumin [Mass/volume ] in Serum or Plasma [facility] Albumin [Mass/volume ] in Serum or Plasma [facility] Albumin/Globulin [Ma ss Ratio] in Serum or Plasma by Electrophoresis [facility] Work Phone: Albumin/Globulin [Ma ss Ratio] in Serum or Plasma by Electrophoresis [facility] Alkaline phosphatase [Enzymatic activity/volume] in Serum or Plasma [facility] Alkaline phosphatase [Enzymatic activity/volume] in Serum or Plasma [facility] Alkaline phosphatase [Enzymatic activity/volume] in Serum or Plasma [facility] Alpha 1 antitrypsin [Mass/volume] in Serum or Plasma [facility] Anion gap measurement [facility] Anion gap measurement [facility] Anion gap measurement [facility] Aspartate aminotrans ferase [Enzymatic activity/volume] in Serum or Plasma [facility] Aspartate aminotrans ferase [Enzymatic activity/volume] in Serum or Plasma [facility] Aspartate aminotrans ferase [Enzymatic activity/volume] in Serum or Plasma [facility] Bacteria identified in Urine by Culture Urine Culture [facility] Bilirubin measurement, urine [facility] Bilirubin measurement, urine [facility] Bilirubin, total measurement [facility] Bilirubin, total measurement [facility] Bilirubin, total measurement [facility] BUN/Creatinine ratio [facility] BUN/Creatinine ratio [facility] BUN/Creatinine ratio [facility] Calcium [Mass/volume ] in Serum or Plasma [facility] Calcium [Mass/volume ] in Serum or Plasma [facility] Calcium [Mass/volume ] in Serum or Plasma [facility] Carbon dioxide, tota l [Moles/volume] in Serum or Plasma [facility] Carbon dioxide, tota l [Moles/volume] in Serum or Plasma [facility] Carbon dioxide, tota l [Moles/volume] in Serum or Plasma [facility] Cardiac event recording [facility] CBC W Auto Different ial panel - Blood [facility] Chloride [Moles/volu me] in Serum or Plasma [facility] Chloride [Moles/volu me] in Serum or Plasma [facility] Chloride [Moles/volu me] in Serum or Plasma [facility] Creatinine [Moles/vo lume] in Serum or Plasma [facility] Creatinine [Moles/vo lume] in Serum or Plasma [facility] Creatinine [Moles/vo lume] in Serum or Plasma [facility] Electrophoresis: albumin [facility] Work Phone: Electrophoresis: albumin [facility] Electrophoresis: [id number] [facility] Work Phone: Electrophoresis: [id number] [facility] Electrophoresis: [id number] [facility] Work Phone: Electrophoresis: [id number] [facility] Electrophoresis: francisco j ma globulin [facility] Work Phone: Electrophoresis: francisco j ma globulin [facility] Globulin measurement [facility] Work Phone: Globulin measurement [facility] Glucose [Mass/volume ] in Serum or Plasma [facility] Glucose [Mass/volume ] in Serum or Plasma [facility] Glucose [Mass/volume ] in Serum or Plasma [facility] Hematocrit [Volume F raction] of Blood [facility] Hematocrit [Volume F raction] of Blood [facility] Hematocrit [Volume F raction] of Blood [facility] Hematocrit [Volume F raction] of Blood [facility] Hemoglobin [Mass/vol ume] in Blood [facility] Hemoglobin [Mass/vol ume] in Blood [facility] Hemoglobin [Mass/vol ume] in Blood [facility] Hemoglobin [Mass/vol ume] in Blood [facility] Hemoglobin [Presence ] in Urine [facility] Hemoglobin [Presence ] in Urine [facility] Measurement of keton es in urine using dipstick [facility] Measurement of keton es in urine using dipick [facility] Measurement of renal function [facility] Measurement of renal function [facility] Measurement of renal function [facility] Microscopic urinalysis [facility] Microscopic urinalysis [facility] NM Heart Views W str ess and W radionuclide IV [facility] Organism count, micr oscopic method [facility] Patient Education [facility] Work Phone: Patient referral [facility] Work Phone: pH of Urine [facility] pH of Urine [facility] Potassium [Moles/vol ume] in Serum or Plasma [facility] Potassium [Moles/vol ume] in Serum or Plasma [facility] Potassium [Moles/vol ume] in Serum or Plasma [facility] Protein electrophore sis panel - Serum or Plasma [facility] Work Phone: Protein electrophore sis panel - Serum or Plasma [facility] Serum protein electrophoresis [facility] Work Phone: Serum protein electrophoresis [facility] Sodium [Moles/volume ] in Serum or Plasma [facility] Sodium [Moles/volume ] in Serum or Plasma [facility] Sodium [Moles/volume ] in Serum or Plasma [facility] Specific gravity of Urine [facility] Specific gravity of Urine [facility] Total globulins measurement [facility] Work Phone: Total globulins measurement [facility] Total protein measurement [facility] Total protein measurement [facility] Total protein measurement [facility] Troponin T.cardiac [Mass/volume] in Serum or Plasma by High sensitivity method [facility] Urea nitrogen [Mass/ volume] in Serum or Plasma [facility] Urea nitrogen [Mass/ volume] in Serum or Plasma [facility] Urea nitrogen [Mass/ volume] in Serum or Plasma [facility] Urinalysis, blood, qualitative [facility] Urine blood test [facility] Urine dipstick for glucose [facility] Urine dipstick for glucose [facility] Urine dipstick for l eukocyte esterase [facility] Urine dipstick for l eukocyte esterase [facility] Urine dipstick for nitrite [facility] Urine dipstick for nitrite [facility] Urine dipstick for protein W [facility] Urine dipstick for protein [facility] Urine examination [facility] Urine examination [facility] Urine microscopy: ep ithelial cells [facility] Urine microscopy: ep ithelial cells [facility] Urine Microscopy: white cells [facility] Urobilinogen [Presen ce] in Urine [facility] Urobilinogen [Presen ce] in Urine [facility] US Heart Transesophageal [facility] White blood cell count [facility] Immunizations Immunization Date Immunization Notes Care Provider Fa champ 08-19-2024 influenza, high dose seasonal, preservative-free Dr. Daron Benton MD Work Phone: [facility] 08-17-2023 Influenza High-Dose Quadrivalent Dr. Daron Benton Work Phone: [facility] 08-17-2023 influenza virus vacc ine, unspecified formulation Mamta Wood AUDIO VIDEO TECH - THRESHER BROOMCORN Work Phone: [facility] 09-16-2022 Covid Pfizer Bivalen t Booster Dr. Daron Benton Work Phone: [facility] 09-16-2022 Influenza High-Dose Quadrivalent Dr. Daron Benton Work Phone: [facility] 09-16-2022 influenza virus vacc ine, unspecified formulation Kristopher Main MD Work Phone: [facility] 05-17-2022 Covid (Moderna) Dr. Daron Scott Work Phone: [facility] 09-21-2021 Covid (Moderna) Dr. Daron Scott Work Phone: [facility] 02-09-2021 tetanus toxoid, redu maya diphtheria toxoid, and acellular pertussis vaccine, adsorbed Dr. Daron Benton Work Phone: [facility] 01-13-2021 Covid (Moderna) Dr. Daron Scott Work Phone: [facility] 12-16-2020 Covid (Moderna) Dr. Daron Scott Work Phone: [facility] 08-13-2019 Influenza, high dose seasonal Dr. Daron Benton MD Work Phone: [facility] 08-13-2019 influenza, high dose seasonal, preservative-free Dr. Daron Benton Work Phone: [facility] 08-13-2019 influenza virus vacc ine, unspecified formulation [facility] [place] Work Phone: [facility] 08-20-2018 influenza, injectabl e, quadrivalent, preservative free Dr. Daron Benton Work Phone: [facility] 07-20-2011 influenza virus vacc ine, unspecified formulation [facility] [place] Work Phone: [facility] 09-01-2009 influenza virus vacc ine, unspecified formulation [facility] [place] Work Phone: [facility] 09-18-2008 influenza virus vacc ine, unspecified formulation [facility] [place] Work Phone: [facility] 08-19-2008 pneumococcal polysaccharide vaccine, 23 valent [facility] [place] Work Phone: [facility] 08-23-2006 diphtheria and tetan us toxoids, adsorbed for pediatric use [facility] [place] Work Phone: [facility] Payers Date Payer Category Payer Self-pay [id number] 2022 Medicare HMO [employer] [id number] [facility] MEDICAID [id number] 2019-Present [phone] [address] [place] [address] Medicaid [id number] 2017 Medicare [id number]. [id number] 2016 Medicare [id number] 2016 Unknown [id number] 1955 Unknown [id number] 2.16.840.1.893659.3.579.2.627 Unknown [id number] 2.16.840.1.110787.3.579.2.462 Unknown [id number] 2.16.840.1.667090.3.579.2.462 Unknown [id number] 2.16.840.1.224462.3.579.2.462 Unknown [id number] 2.16.840.1.857011.3.579.2.462 Unknown [id number] 2.16.840.1.453779.3.579.2.462 Unknown [id number] 2.16.840.1.738869.3.579.2.462 Unknown [id number] 2.16.840.1.253871.3.579.2.462 Unknown [id number] 2.16.840.1.492731.3.579.2.462 Unknown [id number] 2.16.840.1.135644.3.579.2.462 Unknown [id number] 2.16.840.1.143300.3.579.2.462 Unknown [id number] 2.16.840.1.237824.3.579.2.462 Unknown [id number] 2.16.840.1.233730.3.579.2.462 Unknown [id number] 2.16.840.1.780429.3.579.2.462 Unknown [id number] 2.16.840.1.974793.3.579.2.462 Unknown [id number] 2.16.840.1.424910.3.579.2.462 Unknown [id number] 2.16.840.1.914274.3.579.2.462 Unknown [id number] 2.16.840.1.367192.3.579.2.462 Unknown [id number] 2.16.840.1.309235.3.579.2.462 Unknown [id number] 2.16.840.1.534997.3.579.2.462 Unknown [id number] 2.16.840.1.829052.3.579.2.462 Unknown [id number] 2.16.840.1.665628.3.579.2.462 Unknown [id number] 2.16.840.1.079528.3.579.2.462 Unknown [id number] 2.16.840.1.393182.3.579.2.462 Unknown [id number] 2.16.840.1.975576.3.579.2.462 Unknown [id number] 2.16.840.1.176507.3.579.2.462 Unknown [id number] 2.16.840.1.269897.3.579.2.462 Unknown [id number] 2.16.840.1.928796.3.579.2.462 Unknown [id number] 2.16.840.1.821788.3.579.2.462 Unknown [id number] 2.16.840.1.571197.3.579.2.462 Unknown [id number] 2.16.840.1.864823.3.579.2.462 Unknown [id number] 2.16.840.1.436331.3.579.2.462 Unknown [id number] 2.16.840.1.517335.3.579.2.462 Unknown [id number] 2.16.840.1.492726.3.579.2.462 Unknown [id number] 2.16.840.1.402585.3.579.2.462 Unknown [id number] 2.16.840.1.292609.3.579.2.462 Unknown [id number] 2.16.840.1.836098.3.579.2.462 Unknown [id number] 2.16.840.1.083020.3.579.2.462 Unknown [id number] 2.16.840.1.527678.3.579.2.462 Unknown [id number] 2.16.840.1.732365.3.579.2.462 Unknown [id number] 2.16840.1.611179.3.579.2.462 Unknown [id number] 2.16.840.1.102408.3.579.2.462 Unknown [id number] 2.16840.1.929273.3.579.2.462 Unknown [id number] 2.16840.1.586718.3.579.2.462 Unknown [id number] 2.16840.1.386373.3.579.2.462 Unknown [id number] 2.16840.1.405082.3.579.2.462 Unknown [id number] 2.16840.1.184223.3.579.2.462 Unknown [id number] 2.16840.1.729299.3.579.2.462 Unknown [id number] 2.16840.1.366864.3.579.2.462 Unknown [id number] 2.16840.1.993372.3.579.2.462 Unknown [id number] 2.16840.1.112986.3.579.2.462 Unknown [id number] 2.16840.1.139569.3.579.2.462 Social History Date Type Detail Facility Start: 02-17-2022 End: 02-21-2024 Tobacco smoking status GAIS Unknown if ever smoked [facility] Start: 01-18-2020 Occasional [facility] Start: 01-18-2020 None [facility] Start: 01-29-2020 Alone [facility] Start: 02-09-2021 [facility] 1955 Sex Assigned At Female W [facility] Start: 12-08-2016 End: 05-19-2025 Tobacco smoking status NHIS Smokes tobacco daily [facility] History of tobacco use Cigarette Smoker [facility] Start: 04-04-2023 End: 04-08-2025 Alcohol intake Ex-drinker (finding) [facility] Start: 04-04-2023 End: 04-08-2025 History of Social function [facility] Start: 04-04-2023 End: 04-08-2025 Tobacco use panel [facility] Start: 1955 Sex Assigned At Not on file [facility] Start: 12-08-2016 End: 03-04-2025 Tobacco use and exposure Smokeless tobacco non-user [facility] Start: 11-25-2020 Alcoholic beverage intake Not Asked [facility] National Score (1-100), lower number is lower risk Not on file [facility] Start: 10-26-2020 End: 10-05-2022 Exposure to SARS-CoV-2 (event) Not sure [facility] Start: 06-19-2022 Sex Female (finding) [facility] Start: 04-02-2025 End: 04-20-2025 Tobacco smoking status NHIS Current Light tobacco smoker [facility] NEGATED: Highlighted row [facility] Medical Equipment Procedure Code Equipment Code Equipment Origin al Text Equipment Identifier Dates GDC aneurysm coil FDA Start: 02-03-2014 GDC aneurysm coil FDA Start: 02-03-2014 Protege GFS stent FDA Start: 08-25-2015 ([id number]) [id number] FDA Start: 01-18-2022 GDC aneurysm coil FDA [...] Assessment Result Facility 04-22-2025 Functional status Ambulates [facility] Work Phone: 01-13-2025 Functional status Standby Assist [facility] Work Phone: 01-13-2025 Functional status Ambulates;Bathroom Priv ilege [facility] Work Phone: 12-11-2024 Functional status Bathroom Privilege [facility] Work Phone: 02-25-2024 Functional status Ambulates [facility] Work Phone: 12-07-2023 Functional status Ambulates;Chair [facility] Work Phone: 11-21-2023 Functional status Ambulates [facility] Work Phone: 11-16-2023 Functional status Ambulates [facility] Work Phone: 11-09-2022 Functional Status Ambulating in room [facility] 11-09-2022 Functional Status Selina Ho gurjit 11-09-2022 Functional Status Maintained Selinapriyanka tompkinsbertram Mental Status Date Assessment Result Facility 05-19-2025 Cognitive function Awake;Alert;A ppropriate;Follow s Commands [facility] Work Phone: 04-22-2025 Cognitive function Voice/Name;Touch/Shaki ng [facility] Work Phone: 04-18-2025 Cognitive function Level Of Cons ciousness Awake;Alert;Appropriate;Follow s Commands [facility] Work Phone: 04-02-2025 Cognitive function Awake;Appropr iate;Follows Commands;Drowsy [facility] Work Phone: 01-13-2025 Cognitive function Voice/Name [facility] Work Phone: 12-11-2024 Cognitive function Voice/Name [facility] Work Phone: 02-25-2024 Cognitive function Voice/Name [facility] Work Phone: 02-19-2024 Cognitive function Awake;Alert;A ppropriate;Follow s Commands [facility] Work Phone: 12-07-2023 Cognitive function Voice/Name [facility] Work Phone: 12-02-2023 Cognitive function Awake;Drowsy [facility] Work Phone: 11-27-2023 Cognitive function Voice/Name [facility] Work Phone: 11-21-2023 Cognitive function Voice/Name [facility] Work Phone: 11-18-2023 Cognitive function Level Of Cons ciousness Awake;Alert;Appropriate;Follow s Commands [facility] Work Phone: 11-16-2023 Cognitive function Voice/Name [facility] Work Phone: 11-15-2023 Cognitive function Level Of Cons ciousness Awake;Alert;Appropriate;Follow s Commands [facility] Work Phone: 10-05-2023 Cognitive function Awake;Alert;A ppropriate;Follow s Commands [facility] Work Phone: 04-08-2023 Cognitive function Level Of Cons ciousness Awake;Alert;Appropriate [facility] Work Phone: 04-28-2023 Cognitive function Level Of Cons ciousness Awake;Alert;Appropriate;Follow s Commands [facility] Work Phone: 11-09-2022 Mental Status Orientation Oriented x 4 [facility] 11-09-2022 Mental Status [facility] 11-09-2022 Mental Status [facility] 02-18-2022 Cognitive function Voice/Name [facility] Work Phone: Clinical Notes 11-25-2020 to 05-15-2025 Telephone Encounter - Maeve Kenilworth - 05/06/2025 1:48 PM EDTTelephone Encounter - Maeve Kenilworth - 05/06/2025 1:48 PM EDTTelephone Encounter - Madelin Olvera - 05/05/2025 2:39 PM EDT Note Date & Type Note Facility 05-15-2025 Radiology Diagnos tic study note [facility] 05-06-2025 Telephone encount er Note Faxed New Auth to [facility] @ [phone], Valid 05/06/25 Thru 07/05/25 Brain MRI wo Contrast. [facility] 05-06-2025 Miscellaneous Notes Formattin g of this note might be different from the original. Faxed New Auth to [facility] @ [phone], Valid 05/06/25 Thru 07/05/25 Brain MRI wo Contrast. Name of caller: Viki-[facility] Contact phone number: [phone] Relationship to Patient: Imaging Provider: Robert Practice: neuro Chief Complaint/Reason for Call: Viki states patients prior auth is expiring and will need a new one for patient schedule MRI on 05/20 @130 fax # [phone]. documented in this encounter [facility] 05-05-2025 Telephone encount er Note [facility] phone number: [phone] Relationship to Patient: Imaging Provider: Robert Practice: neuro Chief Complaint/Reason for Call: Viki states patients prior auth is expiring and will need a new one for patient schedule MRI on 05/20 @130 fax # [phone]. [facility] 04-24-2025 Telephone encount er Note Baclofen 20mg sent to [facility] in [place]. [facility] 04-24-2025 Miscellaneous Notes Formattin g of this note might be different from the original. Baclofen 20mg sent to [facility] in [place]. Name of caller: Angélica Contact phone number: [phone] Relationship to Patient: patient Provider: AURORA Lynn Practice: Neurology Chief Complaint/Reason for Call: Angélica advised that she just got out of the hospital, and she needs her Baclofen script sent in to her [facility] [address] [place] [address], [place] - [address] [[id number]]. She does not use the [facility] any longer, and she is completely out. Best time of day caller can be reached: any Patient advised that office/PCP has 24-48 business hours to return their call: Yes documented in this encounter [facility] 04-24-2025 Telephone encount er Note Name of caller: Angélica Contact phone number: [phone] Relationship to Patient: patient Provider: AURORA Lynn Practice: Neurology Chief Complaint/Reason for Call: Angélica advised that she just got out of the hospital, and she needs her Baclofen script sent in to her [facility] [address] [facility], [place] - [address] [[id number]]. She does not use the [facility] any longer, and she is completely out. Best time of day caller can be reached: any Patient advised that office/PCP has 24-48 business hours to return their call: Yes [facility] 04-22-2025 Discharge summary Note Date/Time April 22, 2025 2:21pm [facility] Medical Records Department [address] [place] [address] Discharge Summary 04/22/25 1411 MR#: [id number] Acct: [id number] Name: ANGÉLICA YO Rep #:[id number] : 1955 69 From: Roman Mckeon MD PCP: Dr. Daron Benton MD Status:ADM IN Location: [place] [address] Providers Date of Admission: 04/18/25 Primary Care Physician: Dr. Daron Benton MD Consultations 04/19/25 08:12 Consult: Gastroenterology Routine Consulting Provider: [facility] Reason for Consult: GI Bleed EMERGENT [...] Health Service Charges/Coding Visit Charges Inpatient E&M: 42961 Disch Hosp >30min 04/22/25 1421 <Electronically signed by Roman Mckeon MD> Cosigner Signature (if applicable): CC: Dr. Romna Mckeon MD; Dr. Daron Benton MD~ Signed [facility] Work Phone: 1(800) 484-194206-04-2025 Consult note Author Benjamin Cm [facility] Note Date/Time April 22, 2025 1:30p m [facility] Medical Records Department [address] [place] [address] Anesthesia Postop Eval I 04/22/25 1329 MR#: [id number] Acct: [id number] Name: ANGÉLICA YO ADELSO Rep #:[id number] 3 : 1955 69 From: Benjamin Cm PCP: Dr. Daron Benton MD Status:ADM IN Y Race: C Location: [place] [address] Anesthesia: Postop Eval I Current Vital Signs [...] by Benjamin Cm > Date _ Benjamin Peterson Signature: Date CC: ~ Signed [facility] Work Phone: 1(992) 294-710106-04-2025 Progress note Author Kevin Gonzalez [facility] Note Date/Time April 22, 2025 12:31 pm [facility] Medical Records Department [address] [place] [address] Progress Note 04/22/25 1230 MR#: [id number] Acct: [id number] Name: ANGÉLICA YO Rep #:[id number] 2 : 1955 69 From: Kevin Gonzalez DO PCP: Dr. Daron Benton MD Status:ADM IN Location: MS3 AE673-0 Progress Note The patient underwent NG tube [...] ASA of 3. Visit Charges Inpatient E&M: 42909 Subs Hosp L2 04/22/25 1231 <Electronically signed by Kevin Gonzalez DO> Kevin Gonzalez DO Cosigner Signature (if applicable): CC: ~ Signed [facility] Work Phone: 1(110) 369-506406-04-2025 [facility]06-04-2025 Procedure [facility]06-04-2025 Procedure [facility]-04-2025 Consult note Author Aime Covarrubias [facility] Note Date/Time April 22, 2025 11:17 am [facility] Medical Records Department [address] [place] [address] Pre-Anesthesia Evaluation 04/22/25 1116 MR#: [id number] Acct: [id number] Name: ANGÉLICA YO Rep #:[id number] 4 : 1955 69 From: Aime Covarrubias MD PCP: Dr. Daron Benton MD Status:ADM IN Y Race: C Location: [place]3 MS305 -1 ASA Classification* ASA Classification ASA [...] Procedure(s): EGD 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 - type caster: 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 - type caster Hx Hospitalization No 04/15/21 11:49 Any Problems [...] take am of surgery PONV PONV - type caster: PONV - type caster Female HX of Motion Sickness HX of N/V After Surgery Non-Smoker Duration of Surgery greater than 60 minutes Number of Risk Factors PONV Score Height & Weight Height & Weight: Anesthesia: Height & Weight Height 5 ft 5 in 04/21/25 15:30 Weight: 45.7 kg 04/21/25 15:30 Body Mass Index (BMI) 16.7 04/21/25 15:30 Respiratory Assessment Respiratory Assessment - type caster: Respiratory Tract Infection Hx - type caster Hx Respiratory Tract Infection No 02/24/24 23:50 STOP Sleep Apnea STOP Sleep Apnea - type caster: STOP Sleep Apnea - type caster Hx Hypertension Yes 04/18/25 21:53 Hx Sleep [...] Tobacco Use History Tobacco Use History - type caster: Tobacco Use History - type caster Tobacco Use Smoking Status Light Smoker (<10/day) 04/20/25 21:39 Hx Tobacco Use Yes 04/18/25 21:53 Years Smoking Packs Smoked per Day Smoking Cessation Date was within the last 15 years Hx Smoking Cessation Date Hx Smoking Cessation No 04/18/25 21:53 Counseling Hematologic Medial History Hematologic Hx - type caster: 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 Hx of Blood Transfusion Yes 04/18/25 21:53 [...] confused, unrespo /Reproduction History /Reproductive History - type caster: /Reproductive Hx- type caster Hx Now Gestational Age (in weeks): EDC: [...] 3.125 Mg Tablet PO 3.125 mg BIDCM [facility] Administration Cholecalciferol 125 mcg 04/19/25 10:00 04/22/25 07:19 Cholecalciferol (Vit D3) 125 Mcg Capsule (5,000 Units) PO Not Given DAILY [facility] Docusate Sodium 100 mg 04/18/25 22:00 04/22/25 07:18 Docusate Sodium 100 Mg Capsule PO Not Given BID [facility] Gabapentin 800 mg 04/18/25 22:00 04/22/25 05:13 Gabapentin 800 Mg Tablet PO Not Given TID [facility] Guaifenesin 1 tablet 04/19/25 07:31 Guaifenesin/D-Methorphan Tab.Sr.12h PO Q12H PRN cough/congest Hydromorphone HCl 0.5 - 1 mg 04/19/25 07:19 04/21/25 05:35 Hydromorphone 1 Mg/Ml Syringe IV 0.5 mg Q3H PRN PRN Administration Pain Score 6-10 Sodium Chloride 250 mls @ 15 mls/hr 04/18/25 21:41 IV .[id number] PRN Saline Flush Sodium Chloride 250 mls @ 15 mls/hr 04/18/25 21:41 IV .[id number] PRN Additional IVPB Infusion Pantoprazole Sodium 40 mg/ 100 mls @ 330 mls/hr 04/18/25 21:57 04/22/25 09:55 Sodium Chloride IV 330 mls/hr Q24 VIMAL Administration Lactated Ringer's 1,000 mls @ 15 mls/hr 04/20/25 13:00 04/21/25 15:37 IV 15 mls/hr .Q48H VIMAL Administration Lactated Ringer's 1,000 mls @ 15 mls/hr 04/22/25 11:15 IV .Q48H VMIAL Ipratropium Arnold 2 spray 04/19/25 07:17 Ipratropium Arnold 0.06% Nasal [place] NASAL TID PRN allergy symptoms Levothyroxine Sodium [...] 20 Meq/15 Ml [facility] Sodium Chloride 10 - 40 ml 04/18/25 21:41 04/22/25 09:54 0.9% Saline Lock 10 Ml Syringe IV 10 ml UD PRN Administration SALINE FLUSH PFSH Medical History Hypertensive emergency NSTEMI, initial episode of care Emphysema of lung Smoking greater than 30 pack years New onset atrial fibrillation TOLEDO (dyspnea on exertion) Atherosclerotic heart disease of [place] coronary artery without angina pectoris Cardiac murmur [...] Stomach morphine AdvReac Nausea Verified 04/18/25 18:19 Mgccdhv-WJK-SgJ Reductase AdvReac Nausea Verified 04/18/25 18:19 Inhibitor (Jsadikd-Wsf-Gpa Reductase Inhibitor) Family History Mother Cancer CAD [...] MD Cosigner Signature: Date CC: ~ Signed [facility] Work Phone: 1(704) 657-131906-04-2025 Progress note Author Roman Mckeon [facility] Note Date/Time April 22, 2025 8:32a m [facility] Medical Records Department [address] [facility] [place] [address] Progress Note - Hospitalist 04/22/25 0713 MR#: [id number] Acct: [id number] Name: ANGÉLICA YO Rep #:[id number] 0 : 1955 69 From: Roman Mckeon MD PCP: Dr. Daron Benton MD Status:ADM IN Location: MS3 WN539-6 Reason for Visit Reason for Visit: Diagnoses [...] pain regimen Charges/Coding Visit Charges Inpatient E&M: 20628 Subs Hosp L2 04/22/25 0832 <Electronically signed by Roman Mckeon MD> Cosigner Signature (if applicable): CC: ~ Signed [facility] Work Phone: 1(124) 176-503106-03-2025 Consult note Author Zaki Levin [facility] Note Date/Time April 21, 2025 5:01p m [facility] Medical Records Department [address] [facility] [place] [address] Anesthesia Postop Eval II 04/21/25 1700 MR#: [id number] Acct: [id number] Name: ANGÉLICA YO Rep #:[id number] 2 : 1955 69 From: Zaki JOINER PCP: Dr. Daron Benton MD Status:ADM IN Y Race: C Location: [place] [address] Anesthesia Postop Eval I Sum Postop Eval Completion status Anesthesia document: Postop Eval 1 completed: Yes Anesthesia Postop Eval I Summary Anesthesia Postop Eval I Summary: Anesthesia Postop Eval I: Assessment Summary Airway patent Yes 04/21/25 16:57 LINE MAINTAINER.MDOT Spontaneous unlabored Yes 04/21/25 16:57 LINE MAINTAINER.MDOT respirations Mental status Awake,Calm 04/21/25 16:57 LINE MAINTAINER.MDOT nausea No 04/21/25 16:57 LINE MAINTAINER.MDOT Vomiting No 04/21/25 16:57 LINE MAINTAINER.MDOT Anesthesia Postop Eval I: Fluid Summary Crystalloid volume administer 100 04/21/25 16:57 LINE MAINTAINER.MDOT (ml) Colloids volume administered ( ml) Blood Product volume administered (ml) Total IV fluid infused 100 04/21/25 16:57 LINE MAINTAINER.MDOT Anesthesia Postop Eval I: Summary Notes Anesthesia Complication No 04/21/25 16:57 LINE MAINTAINER.MDISAIAH Anesthesia Complication Comment: Post-operative progress note Anesthesia: Postop Eval II Evaluation Mental status: Awake and Calm Pain Level: 0 nausea: No Vomiting: No Complications Anesthesia Complication: No 04/21/25 1701 <Electronically signed by Zaki Levin CRNA> Date _ Zaki Levin LINE MAINTAINER Cosigner Signature: Date CC: ~ Signed [facility] Work Phone: 1(624) 473-714406-03-2025 Consult note Author Zaki Levin [facility] Note Date/Time April 21, 2025 4:57p m [facility] Medical Records Department [address] [place] [address] Anesthesia Postop Eval I 04/21/251655 MR#: [id number] Acct: [id number] Name: ANGÉLICA YO Rep #:[id number] 8 : 1955 69 From: Zaki Nicholas RNA PCP: Dr. Daron Benton MD Status:ADM IN Y Race: C Location: [place] [address] Anesthesia: Postop Eval I Current Vital Signs [...] Zaki Levin CRNA> Date _ Zaki Levin LINE MAINTAINER Cosigner Signature: Date CC: ~ Signed [facility] Work Phone: 1(645) 751-335806-03-2025 Progress note Author Kevin Gonzalez [facility] Note Date/Time April 21, 2025 4:16p m [facility] Medical Records Department [address] [place] [address] Progress Note 04/21/25 1615 MR#: [id number] Acct: [id number] Name: ANGÉLICA YO Rep #:[id number] 8 : 1955 69 From: Kevin Gonzalez DO PCP: Dr. Daron Benton MD Status:ADM IN Location: [place] [address]-1 Progress Note Patient is n.p.o. for EGD [...] prep is complete. Visit Charges Inpatient E&M: 06341 Subs Hosp L3 04/21/25 161 <Electronically signed by Kevin Gonzalez DO> Kevin Gonzalez DO Cosigner Signature (if applicable): CC: ~ Signed [facility] Work Phone: [phone] 602-563106-03-2025 Consult note Author Storm Gómez [facility] Note Date/Time April 21, 2025 3:54p m [facility] Medical Records Department [address] [place] [address] Pre-Anesthesia Evaluation 04/21/25 1549 MR#: [id number] Acct: [id number] Name: ANGÉLICA YO Rep #:[id number] 7 : 1955 69 From: Storm Gómez MD PCP: Dr. Daron Benton MD Status:ADM IN Y Race: C [facility]* ASA Classification ASA Classification: [...] Procedure(s): EGD 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 - type caster: 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 - type caster Hx Hospitalization No 04/15/21 11:49 Any Problems [...] take am of surgery PONV PONV - type caster: PONV - type caster Female HX of Motion Sickness HX of N/V After Surgery Non-Smoker Duration of Surgery greater than 60 minutes Number of Risk Factors PONV Score Height & Weight Height & Weight: Anesthesia: Height & Weight Height 5 ft 5 in 04/21/25 15:30 Weight: 45.7 kg 04/21/25 15:30 Body Mass Index (BMI) 16.7 04/21/25 15:30 Respiratory Assessment Respiratory Assessment - type caster: Respiratory Tract Infection Hx - type caster Hx Respiratory Tract Infection No 02/24/24 23:50 STOP Sleep Apnea STOP Sleep Apnea - type caster: STOP Sleep Apnea - type caster Hx Hypertension Yes 04/18/25 21:53 Hx Sleep [...] Tobacco Use History Tobacco Use History - type caster: Tobacco Use History - type caster Tobacco Use Smoking Status Light Smoker (<10/day) 04/20/25 21:39 Hx Tobacco Use Yes 04/18/25 21:53 Years Smoking Packs Smoked per Day Smoking Cessation Date was within the last 15 years Hx Smoking Cessation Date Hx Smoking Cessation No 04/18/25 21:53 Counseling Hematologic Medial History Hematologic Hx - type caster: 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 Hx of Blood Transfusion Yes 04/18/25 21:53 [...] confused, unrespo /Reproduction History /Reproductive History - type caster: /Reproductive Hx- type caster Hx Now Gestational Age (in weeks): EDC: Hx Hx Para Hx Section SAB No 02/24/24 23:50 Active Medications Active Medications: Current Medications Generic Name Dose Route Start Last Admin Trade Name Jason PRN Reason Stop Dose Admin Acetaminophen 650 [...] mls @ 15 mls/hr 04/18/25 21:41 IV .[id number] PRN Saline Flush Sodium Chloride 250 mls @ 15 mls/hr 04/18/25 21:41 IV .[id number] PRN Additional IVPB Infusion Pantoprazole Sodium 40 mg/ 100 mls @ 330 mls/hr 04/18/25 21:57 04/21/25 10:40 Sodium Chloride IV Infused Q24 VIMAL Infusion Lactated Ringer's 1,000 mls @ 15 mls/hr 04/20/25 13:00 04/21/25 15:37 IV 15 mls/hr .Q48H VIMAL Administration Ipratropium Arnold 2 spray 04/19/25 07:17 Ipratropium Arnold 0.06% Nasal [place] NASAL TID PRN allergy symptoms Levothyroxine Sodium 50 mcg 04/19/25 06:00 04/21/25 05:56 Levothyroxine 50 Mcg Tablet PO Not Given DAILY@0600 VIMAL Nutritional Formula (Lactose Free) 120 ml 04/19/25 08:00 04/21/25 10:20 Ensure Clear 120 Ml Liquid PO Not Given TIDCM [facility] Oxycodone HCl 10 mg 04/19/25 07:19 04/21/25 10:23 Oxycodone 5 Mg Tablet PO 10 mg Q4H PRN PRN Administration Pain Score 4-10 Polyethylene Glycol 17 gm 04/18/25 22:00 04/21/25 09:02 Polyethylene Glycol 3350 17 Gm Packet PO Not Given BID VIMAL Potassium Chloride 20 meq 04/21/25 17:00 Potassium Chloride Oral Soln 20 Meq/15 Ml Udc PO BIDCM [facility] Sodium Chloride 10 - 40 ml 04/18/25 21:41 04/19/25 22:46 0.9% Saline Lock 10 Ml Syringe IV 10 ml UD PRN Administration SALINE FLUSH PFSH Medical History Hypertensive emergency NSTEMI, initial episode of care Emphysema of lung Smoking greater than 30 pack years New onset atrial fibrillation TOLEDO (dyspnea on exertion) Atherosclerotic heart disease of [place] coronary artery without angina pectoris Cardiac murmur [...] Stomach morphine AdvReac Nausea Verified 04/18/25 18:19 Tnkxysm-QFB-QeH Reductase AdvReac Nausea Verified 04/18/25 18:19 Inhibitor (Opzkadk-Nsl-Ltw Reductase Inhibitor) Family History Mother Cancer CAD [...] no additional complaints, except as documented. 04/21/25 6317 <Electronically signed by Storm steiner MD> Date _ Storm Gómez MD Cosigner Signature: Date CC: ~ Signed [facility] Work Phone: [phone]) 605-874406-03-2025 Procedure [facility] 04-21-2025 Procedure [facility]06-03-2025 Progress note Author Roman Mckeon [facility] Note Date/Time April 21, 2025 8:22a [facility] Medical Records Department [address] [place] [address] Progress Note - Hospitalist 04/21/25 0727 MR#: [id number] Acct: [id number] Name: ANGÉLICA YO Rep #:[id number] 2 : 1955 69 From: Roman Mckeon MD PCP: Dr. Daron Benton MD Status:ADM IN Location: [place] [address]1 Reason for Visit Reason for Visit: Diagnoses [...] evidence for acute brain abnormality. Reading Location: [place] [address] Physical Exam Narrative GENERAL: cooperative HEENT: Atraumatic; [...] pain regimen Charges/Coding Visit Charges Inpatient E&M: 35557 Subs Hosp L2 04/21/25 0822 <Electronically signed by Roman Mckeon MD> Cosigner Signature (if applicable): CC: ~ Signed [facility] Work Phone: [phone] 188-661906-03-2025 Progress note Author Sommer Martín [facility] Note Date/Time April 21, 2025 1:33a [facility] Medical Records Department [address] [facility] [place] [address] Progress Note - Hospitalist 04/21/25 0041 MR#: [id number] Acct: [id number] Name: ANGÉLICA YO Rep #:[id number] 3 : 1955 69 From: Sommer Resendiz MD PCP: Dr. Daron Benton MD Status:ADM IN Location: [place] [address] Hospitalist Note Patient with unwitnessed mechanical fall, notes she bumped her head. Denies any other injury, nausea, emesis, marked headache. She is on NOAC. CT head requestedto be cautious. 04/21/25 0042 <Electronically signed by Sommer Resendiz MD> Cosigner Signature (if applicable): CC: ~ Signed ADDENDUM by Dr. Sommer Resendiz MD on 04/21/[address] brain with no acute findings. 04/21/25 013<Electronically signed by Sommer Resendiz MD> Cosigner Signature (if applicable): cc: ~* Signed [facility] Work Phone: 1([phone]) [phone] Radiology Diagnostic study [facility]06-02-2025 Consult note Author Aime Covarrubias [facility] Note Date/Time April 20, 2025 4:08p [facility] Medical Records Department [address] [place] [address] Anesthesia Postop Eval II 04/20/25 1608 MR#: [id number] Acct: [id number] Name: ANGÉLICA YO Rep #:[id number] 0 : 1955 69 From: Aime Covarrubias MD PCP: Dr. Daron Benton MD Status:ADM IN Y Race: C Location: [place] [address] Anesthesia Postop Eval I Sum Postop Eval Completion status Anesthesia document: Postop Eval 1 completed: Yes Anesthesia Postop Eval I Summary Anesthesia Postop Eval I Summary: Anesthesia Postop Eval I: Assessment Summary Airway patent Yes 04/20/25 13:53 LINE MAINTAINER.JDEF Spontaneous unlabored Yes 04/20/25 13:53 LINE MAINTAINER.JDEF respirations Mental status Awake 04/20/25 13:53 LINE MAINTAINER.JDEF nausea No 04/20/25 13:53 LINE MAINTAINER.JDEF Vomiting No 04/20/25 13:53 LINE MAINTAINER.JDEF Anesthesia Postop Eval I: Fluid Summary Crystalloid volume administer 500 04/20/25 13:53 LINE MAINTAINER.JDEF (ml) Colloids volume administered ( ml) Blood Product volume administered (ml) Total IV fluid infused 500 04/20/25 13:53 LINE MAINTAINER.JDEF Anesthesia Postop Eval I: Summary Notes Anesthesia Complication No 04/20/25 13:53 LINE MAINTAINER.JDEF Anesthesia Complication Comment: Post-operative progress note Anesthesia: Postop Eval II Evaluation Mental status: Awake Pain Level: 0 nausea: No Vomiting: No Complications Anesthesia Complication: No 04/20/25 1604 <Electronically signed by Aime Covarrubias MD> Date _ Aime Covarrubias MD Cosigner Signature: Date CC: ~ Signed [facility] Work Phone: 1(726) 793-849106-02-2025 Consult note Author Meliza Rea [facility] Note Date/Time April 20, 2025 1:53p [facility] Medical Records Department [address] [place] [address] Anesthesia Postop Eval I 04/20/25 1352 MR#: [id number] Acct: [id number] Name: ANGÉLICA YO Rep #:[id number] 8 : 1955 69 From: Meliza Rea LINE MAINTAINER PCP: Dr. Daron Benton MD Status:ADM IN Y Race: C Location: [place] [address] Anesthesia: Postop Eval I Current Vital Signs [...] 04/20/25 1353 <Electronically signed by Meliza mansfield LINE MAINTAINER> Date _ Meliza Rea LINE MAINTAINER Cosigner Signature: Date CC: ~ Signed [facility] Work Phone: 1(137) 432-367806-02-2025 Consult note Author [facility] Note Date/Time April 20, 2025 1:21p [facility] Medical Records Department [address] [place] [address] Pre-Anesthesia Evaluation 04/20/25 1313 MR#: [id number] Acct: [id number] Name: ANGÉLICA YO Rep #:[id number] 8 : 1955 69 From: Aime Covarrubias MD PCP: Dr. Daron Bneton MD Status:ADM IN Y Race: C Location: [...] Procedure(s): EGD 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 - type caster: 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 - type caster Hx Hospitalization No 04/15/21 11:49 Any Problems [...] take am of surgery PONV PONV - type caster: PONV - type caster Female HX of Motion Sickness HX of N/V After Surgery Non-Smoker Duration of Surgery greater than 60 minutes Number of Risk Factors PONV Score Height & Weight Height & Weight: Anesthesia: Height & Weight Height 5 ft 5 in 04/19/25 10:28 Weight: 45.7 kg 04/19/25 10:28 Body Mass Index (BMI) 16.7 04/18/25 21:50 Respiratory Assessment Respiratory Assessment - type caster: Respiratory Tract Infection Hx - type caster Hx Respiratory Tract Infection No 02/24/24 23:50 STOP Sleep Apnea STOP Sleep Apnea - type caster: STOP Sleep Apnea - type caster Hx Hypertension Yes 04/18/25 21:53 Hx Sleep [...] Tobacco Use History Tobacco Use History - type caster: Tobacco Use History - type caster Tobacco Use Smoking Status Light Smoker (<10/day) 04/18/25 21:53 Hx Tobacco Use Yes 04/18/25 21:53 Years Smoking Packs Smoked per Day Smoking Cessation Date was within the last 15 years Hx Smoking Cessation Date Hx Smoking Cessation No 04/18/25 21:53 Counseling Hematologic Medial History Hematologic Hx - type caster: Hematologic 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 Hx of Blood Transfusion Yes 04/18/25 21:53 [...] confused, unrespo /Reproduction History /Reproductive History - type caster: /Reproductive Hx- type caster Hx Now Gestational Age (in weeks): EDC: [...] mls @ 15 mls/hr 04/18/25 21:41 IV .[id number] PRN Saline Flush Sodium Chloride 250 mls @ 15 mls/hr 04/18/25 21:41 IV .[id number] PRN Additional IVPB Infusion Pantoprazole Sodium 40 mg/ 100 mls @ 330 mls/hr 04/18/25 21:57 04/20/25 09:59 Sodium Chloride IV 330 mls/hr Q24 VIMAL Administration Lactated Ringer's 1,000 mls @ 15 mls/hr 04/20/25 13:00 04/20/25 12:59 IV 15 mls/hr .Q48H VIMAL Administration Ipratropium [place] 2 spray 04/19/25 07:17 Ipratropium [place] 0.06% Nasal [place] NASAL TID PRN allergy symptoms Levothyroxine Sodium 50 mcg 04/19/25 06:00 04/20/25 05:36 Levothyroxine 50 Mcg Tablet PO 50 mcg DAILY@0600 VIMAL Administration Nutritional Formula (Lactose Free) 120 ml 04/19/25 08:00 04/19/25 17:22 Ensure Clear 120 Ml Liquid PO Not Given TIDCM [facility] Oxycodone HCl 10 mg 04/19/25 07:19 04/20/25 [...] (dyspnea on exertion) Atherosclerotic heart disease of [place] coronary artery without angina pectoris Cardiac murmur [...] Stomach morphine AdvReac Nausea Verified 04/18/25 18:19 Ireajhu-FCE-JhT Reductase AdvReac Nausea Verified 04/18/25 18:19 Inhibitor (Taiutfa-Mbn-Jbf Reductase Inhibitor) Family History Mother Cancer CAD [...] rate, regular rhythm, no murmurs and diaphoretic 04/20/258 <Electronically signed by Aime Covarrubias MD> Date _ Aime Covarrubias MD Cosigner Signature: Date CC: ~ Signed [facility] Work Phone: 1(373) [phone] Progress note Author Kevin Gonzalez [facility] Note Date/Time April 20, 2025 1:19p m [facility] Medical Records Department [address] [place] [address] Progress Note 04/20/251317 MR#: [id number] Acct: [id number] Name: ANGÉLICA YO Rep #:[id number] 2 : 1955 69 From: Kevin Gonzalez DO PCP: Dr. Daron Benton MD Status:ADM IN Location: [address] Progress Note Patient has been n.p.o. for [...] ASA of 3. Visit Charges Inpatient E&M: 93253 Subs Hosp L2 04/20/25 1319 <Electronically signed by Kevin Gonzalez DO> Kevin Friend DO Cosigner Signature (if applicable): CC: ~ Signed [facility] Work Phone: [phone]) 557-886806-02-2025 Procedure [facility] 04-20-2025 Procedure [facility]06-02-2025 Progress note Author Roman Mckeon [facility] Note Date/Time April 20, 2025 7:32a m [facility] Medical Records Department [address] [place] [address] Progress Note - Hospitalist 04/20/25 0728 MR#: [id number] Acct: [id number] Name: ANGÉLICA YO Rep #:[id number] 9 : 1955 69 From: Roman Mckeon MD PCP: Dr. Daron Benton MD Status:ADM IN Location: [place] [address] Reason for Visit Reason for Visit: Diagnoses [...] 74.9 H, Lymph % (Auto) 11.1 L, [place] % (Auto) 11.3 H, Eos % (Auto) [...] pain regimen Charges/Coding Visit Charges Inpatient E&M: 26361 Subs Hosp L2 04/20/25 0732 <Electronically signed by Roman Mckeon MD> Cosigner Signature (if applicable): CC: ~ Signed [facility] Work Phone: 1(224) 302-493206-01-2025 Progress note Author Roman Mckeon [facility] Note Date/Time April 19, 2025 8:12a m [facility] Medical Records Department [address] [place] [address] Progress Note - Hospitalist 04/19/2510 MR#: [id number] Acct: [id number] Name: ANGÉLICA YO Rep #:[id number] 2 : 1955 69 From: Roman Mckeon MD PCP: Dr. Daron Benton MD Status:ADM IN Location: [facility] FJ428-0 Reason for Visit Reason for Visit: Diagnoses [...] (Auto) 79.5 H, Lymph % (Auto)9.5 L, [place] % (Auto) 9.4, Eos % (Auto) 0.5, [...] documentation, 52Minutes Charges/Coding Visit Charges Inpatient E&M: 63778 Subs Hosp L3 04/19/25 0812 <Electronically signed by Roman Mckeon MD> Cosigner Signature (if applicable): CC: ~ Signed [facility] Work Phone: 1(519) 897-265306-01-2025 History and physical note Author Sachin Murillo [facility] Note Date/Time April 19, 2025 12:[address] [facility] Medical Records Department [address] [place] [address] H&P Exam - Hospitalist 04/18/252126 MR#: [id number] Acct: [id number] Name: ANGÉLICA YO Rep #:[id number] 5 : 1955 69 From: Sachin chan MD PCP: Dr. Daron Benton MD Status:ADM IN Location: [place] [address] HPI - General General Date of Admission: [...] lightheadedness or dizziness, no nausea or vomiting. [facility] Medical History Hypertensive emergency NSTEMI, initial episode of care Emphysema of lung Smoking greater than 30 pack years New onset atrial fibrillation [place] (dyspnea on exertion) Atherosclerotic heart disease of [place] coronary artery without angina pectoris Cardiac murmur [...] Stomach morphine AdvReac Nausea Verified 04/18/25 18:19 Cskzkdy-INV-UkN Reductase AdvReac Nausea Verified 04/18/25 18:19 Inhibitor (Gldwvvq-Upk-Wil Reductase Inhibitor) Family History Mother Cancer CAD [...] (Auto) 79.5 H, Lymph % (Auto)9.5 L, [place] % (Auto) 9.4, Eos % (Auto) 0.5, [...] DVT: SCDs Charges/Coding Visit Charges Inpatient E&M: 37157 Init Hosp L2 04/19/25 0052 <Electronically signed by Sachin Murillo MD> Cosigner Signature (if applicable): CC: Dr. Daron Benton MD; Dr. Sachin Murillo MD~ Signed [facility] Work Phone: 1(606) 544-938306-01-2025 Discharge summary Author Jeffy Willoughby [facility] Note Date/Time April 18, 2025 10:46 pm [facility] Medical Records Department [address] [place] [address] Emergency Department Summary 04/18/25 MR#: [id number] Acct: [id number] Name: ANGÉLICA YO Rep #:[id number] 1 : 1955 69 From: Jeffy Willoughby MD PCP: Dr. Daron Benton MD Status:ADM IN Location: [place] XJ377-6 HPI History of Present Illness Chief Complaint: [...] atrial fibrillation on apixaban, hyperlipidemia, non-ST elevation AR, alpha-1 antitrypsin deficiency, mitral valve stenosis, chronic [...] Prior similar symptoms: No Recent Illness/Hospitalization: Yes [facility] Medical History Hypertensive emergency NSTEMI, initial episode of care Emphysema of lung Smoking greater than 30 pack years New onset atrial fibrillation TOL[place]O (dyspnea on exertion) Atherosclerotic heart disease of [place] coronary artery without angina pectoris Cardiac murmur [...] Stomach morphine AdvReac Nausea Verified 04/18/25 18:19 Chlbbka-TKI-MzO Reductase AdvReac Nausea Verified 04/18/25 18:19 Inhibitor (Gibldib-Gia-Qho Reductase Inhibitor) Family History Mother Cancer CAD [...] 79.5 H Lymph % (Auto) 9.5 L [place] % (Auto) 9.4 Eos % (Auto) 0.5 [...] (Auto) Neut % (Auto) Lymph % (Auto) [place] % (Auto) Eos % (Auto) Baso % [...] follows: Interpretation: Sinus Rhythm (Rate is 68. NE interval is 102 ms. Cures duration 82 ms. QT duration 456 ms. QTc is prolonged at 484 ms. [place] is normal. There is no acute ischemic changes noted.) Management Discussion w/another healthcare provider: Hospitalist (Evening hospitalist was paged. Patient will need admission with further workup. She did not receive blood in the emergency department.) Discharge Plan Dx/Rx/DC Orders Clinical Impression: Acute hypotension, Orthostatic hypotension, Acute on chronic anemia, Microcyticanemia, Signs and symptoms of anemia, Symptomatic anemia, 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 seenon product support engineer Disposition Disposition: Acute Care Hospital [facility] Discharge Date/Time: 04/18/25 21:33 What to do if you have Problems For any increased pain, shortness of breath, bleeding, nausea or vomiting, chestpain, or any unexpected problems, contact your Primary Care Provider. Call [facility] ([phone]) or report to the closest Emergency Room. Call 911 if necessary. 04/18/257 <Electronically signed by Jeffy Willoughby MD> Cosigner Signature (if applicable): CC: Dr. Daron Benton MD ~ Signed [facility] Work Phone: 1(310) 549-742205-30-2025 Radiology Diagnostic study note [facility] Imaging Services [address] [place] [address] Acute Abdomen Inc Chest MR#: [id number] Acct: [id number] Name: ANGÉLICA YO Rep #: [id number] 0 : 1955 F 69 From: Garo Bautista MD PCP: Dr. Daron Benton MD Status: REG ER Study:Acute Abdomen Inc Chest Date of Exam: 04/17/25 Exam# [id number] Ordering Dr: Kari Haynes DO PROCEDURE: ACUTE [...] Abdomen Inc Chest IMPRESSION: Constipation. Reading Location: [place] [address] CC: Dr. Daron Benton MD; Yasmani Haynes DO ~ Fountain Supervisor: Signed [facility]05-21-2025 History of Present illness Narrative* Lizz Lynn APRN - THRESHER BROOMCORN - 04/08/2025 2:30 PM EDT Visit type: Established Patient Reason for Visit: Follow-up and Multiple Sclerosis (/) Assessment and Plan 1. Multiple sclerosis (HCC) 2. Dysphasia Subjective HPI: Patient phoned in 3 days ago stating MS flare - affecting speech, swallowing, and VOSS. Went to [place] ED about 1 week ago; according to [...] typical MS symptoms Received CT scan at [facility] that she states was normal REVIEW- MS- [...] TSH VITAMIN B12: No results found for: [id number] No results found for: PHENYTOIN, PHENOBARB, VALPROATE, CBMZ No components found for: TOPIRA @RESULTINGLABINFO@ No results found for: LEVETIRACETA, FERRITIN, CRP, DENNIS, ANCA No results found for: CHRISTIANO, IMMUNOGLOBUL, OLIGOBANDS No results found for: SOF55SB, HEPCAB No results found for: CRP, ANATITER, ANCA FERRITIN: No results found for: FERRITIN ---- ECG 12 lead SINUS BRADYCARDIA PROBABLE LEFT ATRIAL ABNORMALITY No previous ECG available for comparison Electronically Signed On 04-05-2023 7:42:10 EDT by Juvenal Benton @[facility]@ IMPRESSION and PLAN: Problem List Items Addressed [...] NS lesions. Rto as scheduled in May, ANTWON Harrington CNP, furnish ongoing care related to Angélica Yo single, serious andcomplex condition(s) MS. I assume responsibility for the patient's ongoing [...] family history on file. documented in this [facility]05-21-2025 Instructions* Patient Instructions* ANTWON Harrington CNP - 04/08/2025 2:30 PM EDT Please call [facility] [phone] to schedule the MRI brain before 05/03/25 - this is when the authorization for the MRI expires documented in this [facility]05-15-2025 Radiology Diagnostic study [facility]05-15-2025 Discharge summary Author Nuno Grider [facility] Note Date/Time April 02, 2025 11:43 pm [facility] Medical Records Department [address] [place] [address] Emergency Department Summary 04/02/25 MR#: [id number] Acct: [id number] Name: ANGÉLICA YO Rep #:[id number] 9 : 1955 69 From: Nuno Grider [...] She denies any exacerbating or alleviating factors. [facility] Medical History Hypertensive emergency NSTEMI, initial episode of care Emphysema of lung Smoking greater than 30 pack years New onset atrial fibrillation [place] (dyspnea on exertion) Atherosclerotic heart disease of [place] coronary artery without angina pectoris Cardiac murmur [...] Stomach morphine AdvReac Nausea Verified 04/02/25 19:26 Elefpkp-QGY-CxF Reductase AdvReac Nausea Verified 04/02/25 19:26 Inhibitor (Zdpizfg-Slt-Kzf Reductase Inhibitor) Family History Mother Cancer CAD [...] by him. Once again, Idiscussed with her tdvo-vq-qzhm if she would like to be observed, [...] Std Deviation 49.7 H RDW Coeff of Advid 16.5 H Plt Count 154 MPV 9.7 Immature Gran % (Auto) 0.500 Neut % (Auto) 80.4 H Lymph % (Auto) 10.5 L [place] % (Auto) 6.6 Eos % (Auto) 1.5 [...] and pelvis. Large colonic stool. [facility] Discussion w/another healthcare provider: Hospitalist (Dr. [...] fever, new or worsening symptoms. Print Language: Mozambican Disposition Disposition: Home, Self Care What to do if you have Problems For any increased pain, shortness of breath, bleeding, nausea or vomiting, chestpain, or any unexpected problems, contact your Primary Care Provider. Call [facility] ([phone]) or report to the closest Emergency Room. Call 911 if necessary. 04/02/252342 <Electronically signed by Nuno Grider MD> Cosigner Signature (if applicable): CC: Dr. Daron Benton MD ~ Signed [facility] Work Phone: 1(228) 118-496205-15-2025 Hospital Discharge instructions Additional Instructions Follow-up with your neurologist within the next 1 to 2 days. Return with increased weakness, fever, new or worsening symptoms.[facility] Work Phone: 1(907) 199-764304-21-2025 Telephone encounter Note* Telephone Encounter - Maeve Jacobson - 03/09/2025 11:40 AM EDT Order re faxed to [phone] [facility]. [place] [id number] Miscellaneous Notes* Telephone Encounter - Maeve Jacobson - 03/09/2025 11:40 AM EDT Order re faxed to [phone] [facility]. * Telephone Encounter - Maria Antonia Kelly - 03/09/2025 11:11 AM EDT Name of caller: Kody Contact phone number: [phone] Relationship to Patient: [facility] Provider: AURORA Lynn: [facility] Chief Complaint/Reason for Call: Kody called in requesting patient's MRI order be faxed over to them at fax # [phone]. Please be advised Best time of day caller can be reached: Any Patient advised that office/PCP has 24-48 business hours to return their call: N/A documented in this encounterSC[facility] HospitalSxwifb72-30-1904 Telephone encounter Note* Telephone Encounter - Maria Antonia Kelly - 03/09/2025 11:11 AM EDT Name of caller: Kody Contact phone number: [phone] Relationship to Patient: [facility] Provider: AURORA Lynn Practice: [facility] Chief Complaint/Reason for Call: Kody called in requesting patient's MRI order be faxed over to them at fax # [phone]. Please be advised Best time of day caller can be reached: Any Patient advised that office/PCP has 24-48 business hours to return their call: N/A [id number] History of Present illness Narrative* ANTWON Harrnigton CNP - 03/04/2025 10:30 AM EDT Visit type: [...] TSH VITAMIN B12: No results found for: ZKPDELAZ96 No results found for: PHENYTOIN, PHENOBARB, VALPROATE, CBMZ No components found for: TOPIRA @RESULTINGLABINFO@ No results found for: LEVETIRACETA, FERRITIN, CRP, DENNIS, ANCA No results found for: CHRISTIANO, IMMUNOGLOBUL, OLIGOBANDS No results found for: TIY28IG, HEPCAB No results found for: CRP, ANATITER, [...] on @TDNR@ at @NOWNR@ documented in this [facility]04-04-2025 Evaluation note* Diagnosis Onset Date Resolution Status [...] 1:14pm Acute on chronic anemia resolved M 2024 9:20pm Microcytic anemia resolved March 9:20pm Orthostatic hypotension resolved M ay 2024 9:20pm Signs and symptoms of anemia resolve d April 18, 2025 9:20pm 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 product support engineer resolved April 18, 2025 9 :20pm Symptomatic anemia resolved April 182024 9:20pm Anemia acute May 06 2:10pm Constipation acute May 06, 025 2:10pm [facility] Work Phone: 1(512) 819-892902-25-2025 [facility]02-23-2025 Evaluation note* Diagnosis Onset Date Resolution Status Admit Date Atherosclerotic heart diseas e of [place] coronary artery without angina pectoris inactive January [...] 2025 1:14pm Acute on chronic anemia resolved [facility] 2024 9:20pm Microcytic anemia resolved March 9:20pm Orthostatic hypotension resolved [facility] 2024 9:20pm Signs and symptoms of anemia resolve d April 18, 2025 9:20pm 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 product support engineer resolved April 18, 2025 9 :20pm Symptomatic anemia resolved April 182024 9:20pm [facility] Work Phone: 1(299) 958-629102-05-2025 Evaluation note* Diagnosis Onset Date Resolution Status Admit Date Ipugv-9-jtdixuoqpdm deficien cy carrier acute December 24 1:52pm Hypoxemia chronic December 24, 2024 1:52pm Emphysema of lung inactive 2024 1:52pm Nicotine dependence, cigarettes, uncomplicated inactive 2024 1:52pm Smoking greater than 30 pack years inactive December 24 1:52pm Atherosclerotic heart diseas e of [place] coronary artery without angina pectoris inactive January [...] 18, 2025 9:20pm 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 product support engineer acute April 18, 2025 9 :20pm Symptomatic anemia acute April 182024 9:20pm Acute on chronic anemia chronic [facility] 2024 9:20pm [facility] Work Phone: 1(296) 330-715901-31-2025 Evaluation note* Diagnosis Onset Date Resolution Status Admit Date Mitral stenosis acute November 212024 1:16pm Bilateral carotid artery stenosis chronic December 19 1:16pm Essential (primary) hypertension inactive December 19 1:16pm PAF (paroxysmal atrial fibrillation) inactive December 19 1:16pm Peripheral vascular occlusiv e disease inactive December 19 1:16pm Amtrn-5-uhscdfnvnds deficien cy carrier acute December 24 1:52pm Hypoxemia chronic December 24, 2024 1:52pm Emphysema of lung inactive 2024 1:52pm Nicotine dependence, cigarettes, uncomplicated inactive 2024 1:52pm Smoking greater than 30 pack years inactive December 24 1:52pm Atherosclerotic heart diseas e of [place] coronary artery without angina pectoris inactive January [...] e disease inactive February 20, 2025 1:14pm [facility] Work Phone: 1(787) 514-152001-31-2025 Evaluation note* Diagnosis Onset Date Resolution Status Admit Date Mitral stenosis acute November 212024 1:16pm Bilateral carotid artery stenosis chronic December 19 1:16pm Essential (primary) hypertension inactive December 19 1:16pm PAF (paroxysmal atrial fibrillation) inactive December 19 1:16pm Peripheral vascular occlusiv e disease inactive December 19 1:16pm Pmwqr-8-dasvzbpndfy deficien cy carrier acute December 24 1:52pm Hypoxemia chronic December 24, 2024 1:52pm Emphysema of lung inactive 2024 1:52pm Nicotine dependence, cigarettes, uncomplicated inactive 2024 1:52pm Smoking greater than 30 pack years inactive December 24 1:52pm Atherosclerotic heart diseas e of [place] coronary artery without angina pectoris inactive January [...] acute March 9:19pm Orthostatic hypotension acute M 2024 9:19pm Signs and symptoms of anemia acute April 18, 2025 9:19pm 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 product support engineer acute April 18, 2025 9 :19pm Symptomatic anemia acute April 182024 9:19pm Acute on chronic anemia chronic 2024 9:19pm [facility] Work Phone: 1(284) 950-584001-23-2025 [facility]01-21-2025 Evaluation note* Diagnosis Onset Date Resolution Status Admit Date Chest pain inactive December 09, 2024 2:32pm Chronic low back pain inactive Nov 2:32pm Diastolic hypertension inactive 2024 2:32pm Elevated troponin inactive December 09, 2024 2:32pm Nicotine dependence, cigarettes, uncomplicated inactive 2024 2:32pm Mitral stenosis acute November 212024 1:16pm Bilateral carotid artery stenosis chronic December 19 1:16pm Essential (primary) hypertension inactive December 19 1:16pm PAF (paroxysmal atrial fibrillation) inactive December 19 1:16pm Peripheral vascular occlusiv e disease inactive December 19 1:16pm Lrkon-6-sdgmrufilly deficien cy carrier acute December 24 1:52pm Hypoxemia chronic December 24, 2024 1:52pm Emphysema of lung inactive 2024 1:52pm Nicotine dependence, cigarettes, uncomplicated inactive 2024 1:52pm Smoking greater than 30 pack years inactive December 24 1:52pm Atherosclerotic heart diseas e of [place] coronary artery without angina pectoris inactive January [...] e disease inactive February 20, 2025 1:14pm [facility] Work Phone: 1(223) 997-306501-02-2025 Telephone encounter Note* Telephone Encounter - Linda [...] (see medication tab): 09/15/24 Updated/Validated preferred pharmacy: [id number] Patient instructed to contact the pharmacy prior to picking up the medication: Yes [id number] Miscellaneous Notes* Telephone Encounter - Linda Glynn [...] (see medication tab): 09/15/24 Updated/Validated preferred pharmacy: [facility] #[id number] - [address] Patient instructed to contact the pharmacy prior to picking up the medication: Yes * Telephone Encounter - Nallely Zaragoza MA - 11/20/2024 2:22 PM EST Last ov-12/14/23 Next ov- N/A documented in this [facility]01-02-2025 Telephone encounter Note* Telephone Encounter - Nallely Zaragoza MA - 11/20/2024 2:22 PM EST Last ov-12/14/23 Next ov- N/A [facility] Telephone encounter Note* Telephone Encounter - Yanely Kwon MA - 09/15/2024 6:47 AM EDT Last ov- 12/14/23 Next ov- n/a [id number] Miscellaneous Notes* Telephone Encounter - Yanely Kwon MA - 09/15/2024 6:47 AM EDT Last ov- 12/14/23 Next ov- n/a documented in this [facility]04-08-2024 Discharge summary Author Eva Mortensen [facility] February 25, 2024 4:04pm Note Date/Time February 25, 2024 3:34 pm [facility] Medical Records Department [address] [place] [address] Discharge Summary 02/25/24 1529 MR#: [id number] Acct: [id number] Name: ANGÉLICA YO Rep #:[id number] 0 : 1955 68 From: Eva Mortensen DO PCP: Dr. Daron Benton MD Status:ADM IN [facility] Prov[facility] Date of Admission: 02/19/24 Date of Discharge: 02/25/24 Primary Care Physician: Dr. Daron Benton MD Consultations 02/19/24 16:58 Consult: Gastroenterology Routine Consulting Provider: [facility] Reason for Consult: GI bleed EMERGENT [...] who presented to the emergency department at [facility] on 02/19/2024 with lightheadedness. She does have a history of paroxysmal atrial fibrillation and is on systemic anticoagulation with apixaban at baseline. Patient reported on presentation yaneli been feeling well for the past 2 [...] (Auto) 68.4, Lymph % (Auto) 16.3 L, [place] % (Auto) 11.3 H, Eos % (Auto) [...] Health Service Charges/Coding Visit Charges Inpatient E&M: 95210 Disch Hosp >30min 02/25/24 1557 <Electronically signed [...] Mortensen DO; Kevin Gonzalez DO ~* Signed [facility] Work Phone: 1(776) 391-914804-08-2024 Procedure [facility] 02-25-2024 Procedure [facility]04-07-2024 Progress note Author Roman Mckeon [facility] February 24, 2024 8:37am Note Date/Time February 24, 2024 8:07 am [facility] Medical Records Department [address] [place] [address] Progress Note - Hospitalist 02/24/24 0806 MR#: [id number] Acct: [id number] Name: ANGÉLICA YO Rep #:[id number] 6 : 1955 68 From: Roman Mckeon MD PCP: Dr. Daron Benton MD Status:ADM IN Location: [place] [address] Reason for Visit Reason for Visit: Diagnoses [...] (Auto) 69.1, Lymph % (Auto) 15.5 L, [place] % (Auto) 11.4 H, Eos % (Auto) [...] (Auto) 79.0 H, Lymph % (Auto)8.2 L, [place] % (Auto) 10.2 H, Eos % (Auto) [...] 35 Minutes Charges/Coding Visit Charges Inpatient E&M: 17952 Subs Hosp L2 02/24/24 0837 <Electronically signed by Roman Mckeon MD> Cosigner Signature (if applicable): CC: ~ Signed [facility] Work Phone: 1(186) 796-785904-06-2024 Progress note Author Kevin Gonzalez [facility] February 23, 2024 4:20pm Note Date/Time February 23, 2024 4:[address] [facility] Medical Records Department [address] [place] [address] Progress Note - GI 02/23/24 1619 MR#: [id number] Acct: [id number] Name: ANGÉLICA YO Rep #:[id number] 3 : 1955 68 From: Kevin Gonzalez DO PCP: Dr. Daron Benton MD Status:ADM IN Location: [place] [address] Subjective Subjective Patient does not have any [...] (Auto) 69.1, Lymph % (Auto) 15.5 L, [place] % (Auto) 11.4 H, Eos % (Auto) [...] on Sunday. Charges/Coding Visit Charges Inpatient E&M: 12399 Subs Hosp L3 02/23/24 1620 <Electronically signed by Kevin Friend DO> Cosigner Signature (if applicable): CC: ~ Signed [facility] Work Phone: 1(465) 690-522804-06-2024 Progress note Author Roman Mckeon [facility] February 23, 2024 9:04am Note Date/Time February 23, 2024 8:[address] [facility] Medical Records Department [address] [place] [address] Progress Note - Hospitalist 02/23/24819 MR#: [id number] Acct: [id number] Name: ANGÉLICA YO Rep #:[id number] 2 : 1955 68 From: Roman Mckeon MD PCP: Dr. Daron Benton MD Status:ADM IN Location: [place] [id number]- [id number] Reason for Visit Reason for Visit: [...] 38 Minutes Charges/Coding Visit Charges Inpatient E&M: 03823 Subs Hosp L2 02/23/24 0904 <Electronically signed by Roman Mckeon MD> Cosigner Signature (if applicable): CC: ~ Signed [facility] Work Phone: 1(528) 618-454104-05-2024 Progress note Author Kevin Friend [facility] February 22, 2024 5:55pm Note Date/Time February 22, 2024 5:[address] [facility] Medical Records Department [address] [place] [address] Progress Note - GI 02/22/24 1753 MR#: [id number] Acct: [id number] Name: ANGÉLICA YO Rep #:[id number] 8 : 1955 68 From: Kevin Friend DO PCP: Dr. Daron Benton MD Status:ADM IN Location: [place] [address] Subjective Subjective Patient is still very lethargic [...] (Auto) 68.8, Lymph % (Auto) 14.2 L, [place] % (Auto) 12.5 H, Eos % (Auto) [...] and lethargy. Charges/Coding Visit Charges Inpatient E&M: 09306 Subs Hosp L3 02/22/241754 <Electronically signed by Kevin Friend DO> Cosigner Signature (if applicable): CC: ~ Signed [facility] Work Phone: 1(635) 622-683604-05-2024 Progress note Author Roman Mckeon [facility] February 22, 2024 9:50am Note Date/Time February 22, 2024 7:36 am [facility] Medical Records Department [address] [place] [address] Progress Note - Hospitalist 02/22/24 0736 MR#: [id number] Acct: [id number] Name: ANGÉLICA YO Rep #:[id number] 0 : 1955 68 From: Roman Mckeon MD PCP: Dr. Daron Benton MD Status:ADM IN Location: [place] [address] Reason for Visit Reason for Visit: Diagnoses [...] 52 Minutes Charges/Coding Visit Charges Inpatient E&M: 37655 Subs Hosp L3 02/22/24 0950 <Electronically signed by Roman Mckeon MD> Cosigner Signature (if applicable): CC: ~ Signed [facility] Work Phone: 1(477) 140-712404-04-2024 Progress note Author Kevin Friend [facility] February 21, 2024 5:17pm Note Date/Time February 21, 2024 5:17 pm [facility] Medical Records Department [address] [place] [address] Progress Note - GI 02/21/24 1710 MR#: [id number] Acct: [id number] Name: ANGÉLICA YO Rep #:[id number] 8 : 1955 68 From: Kevin Friend DO PCP: Dr. Daron Benton MD Status:ADM IN Location: [place] [address] Subjective Subjective She underwent an upper endoscopy [...] or outpatient. Charges/Coding Visit Charges Inpatient E&M: 71209 Subs Hosp L3 02/21/24 1717 <Electronically signed by Kevin Friend DO> Cosigner Signature (if applicable): CC: ~ Signed [facility] Work Phone: 1(145) 480-119204-04-2024 Progress note Author Roman Mckeon [facility] February 21, 2024 11:21am Note Date/Time February 21, 2024 10:[address] [facility] Medical Records Department [address] [place] [address] Progress Note - Hospitalist 02/21/24 1002 MR#: [id number] Acct: [id number] Name: ANGÉLICA YO Rep #:[id number] 4 : 1955 68 From: Roman Mckeon MD PCP: Dr. Daron Benton MD Status:ADM IN Location: [place] [address] Reason for Visit Reason for Visit: Diagnoses [...] 50 Minutes Charges/Coding Visit Charges Inpatient E&M: 11732 Subs Hosp L3 02/21/24 1121 <Electronically signed by Roman Mckeon MD> Cosigner Signature (if applicable): CC: ~ Signed [facility] Work Phone: 1(767) 556-659904-03-2024 Progress note Author Roman Mckeon [facility] February 20, 2024 11:46am Note Date/Time February 20, 2024 10:[address] [facility] Medical Records Department [address] [place] [address] Progress Note - Hospitalist 02/20/24 1005 MR#: [id number] Acct: [id number] Name: ANGÉLICA YO Rep #:[id number] 6 : 1955 68 From: Roman Mckeon MD PCP: Dr. Daron Benton MD Status:ADM IN Location: [place] [address] Reason for Visit Reason for Visit: Diagnoses [...] 73.5 H, Lymph % (Auto) 14.5 L, [place] % (Auto) 8.5, Eos % (Auto) 2.6, [...] 71.0 H, Lymph % (Auto) 14.4 L, [place] % (Auto) 11.1 H, Eos % (Auto) [...] Radiography Diagnostic Testing: Radiology Impression Chest X-Ray 02/19/24 11:55 IMPRESSION: [...] 50 Minutes Charges/Coding Visit Charges Inpatient E&M: 36488 Subs Hosp 02/20/24 1146 <Electronically signed by Roman Mckeon MD> Cosigner Signature (if applicable): CC: ~ Signed [facility] Work Phone: 1(504) 993-594304-03-2024 Procedure [facility] 02-20-2024 Procedure [facility]04-02-2024 Consult note Author Kevin Gonzalez [facility] February 19, 2024 7:12pm Note Date/Time February 19, 2024 7:[address] [facility] Medical Records Department [address] [place] [address] Consultation - GI 02/19/24 1908 MR#: [id number] Acct: [id number] Name: ANGÉLICA YO Rep #:[id number] 1 : 1955 68 From: Kevin Friend DO PCP: Dr. Daron Benton MD Status:ADM IN Location: [facility] ZAX100- 1 HPI Consult Data Date of Consult: 02/19/24 [...] fell on Easter in the driveway onto [facility]. She did not hit her head. She denies any recent hospitalization or travel. Imaging of the chest displayed : right lower lobe infiltrate with small right pleural effusion with mild degree of vascular congestion in the right hemithorax. In the ED she was discovered to have a hemoglobin of 6.6. I was consulted for acute onset anemia [facility] Medical History Angina pectoris Bilateral carotid artery [...] Stomach morphine AdvReac Nausea Verified 02/19/24 10:57 Juovoje-Xhj-Suf Reductase AdvReac Nausea Verified 02/19/24 10:57 Inhibitor [...] 73.5 H, Lymph % (Auto) 14.5 L, [place] % (Auto) 8.5, Eos % (Auto) 2.6, [...] of 3. Charges/Coding Visit Charges Inpatient E&M: 47692 Init Hosp L3 02/19/241911 <Electronically signed by Kevin Friend DO> Cosigner Signature (if applicable): CC: Dr. Daron Benton MD~ Signed [facility] Work Phone: 1(267) 329-552104-02-2024 History and physical note Author Roman Mckeon [facility] February 19, 2024 3:25pm Note Date/Time February 19, 2024 2:[address] [facility] Medical Records Department [address] [place] [address] H&P Exam - Hospitalist 02/19/24 1426 MR#: [id number] Acct: [id number] Name: ANGÉLICA YO ADELSO Rep #:[id number] 0 : 1955 68 From: Roman Mckeon [...] Admitted to monitored bed for further management [facility] Medical History Angina pectoris Bilateral carotid artery [...] Stomach morphine AdvReac Nausea Verified 02/19/24 10:57 Cwwmulo-IGT-YgY Reductase AdvReac Nausea Verified 02/19/24 10:57 Inhibitor [Febngsm-Cxv-Mly Reductase Inhibitor] Family History Mother Cancer CAD [...] 73.5 H, Lymph % (Auto) 14.5 L, [place] % (Auto) 8.5, Eos % (Auto) 2.6, [...] 18 minutes. Charges/Coding Visit Charges Inpatient E&M: 93784 Init Hosp L3 Procedures Hospitalists Procedures: 73061 Advncd Care Plan 30 Min 02/19/24 1525 <Electronically signed by Roman Mckeon MD> Cosigner Signature (if applicable): CC: Dr. Roman Mckeon MD; Dr. Daron Benton MD~ Signed [facility] Work Phone: 1(363) 219-237604-02-2024 Discharge summary Author Jeffy Willoughby [facility] February 19, 2024 2:59pm Note Date/Time February 19, 2024 12:1 5pm [facility] Medical Records Department [address] [place] [address] Emergency Department Summary 02/19/24 MR#: [id number] Acct: [id number] Name: ANGÉLICA YO Rep #:[id number] : 1955 68 From: Jeffy Willoughby MD PCP: Dr. Daron Benton MD Status:[facility] ER Location: ED ADDENDUM by Dr. Jeffy Willoughby MD on 02/19/24 at 1459 EKG reveals atrial fibrillation with a ventricular rate 87. QRS duration 84 ms. QT duration 414 ms. [place] is normal. QT is prolonged. 02/19/24 1459<Electronically [...] Prior similar symptoms: Yes Recent Illness/Hospitalization: No [facility] <Bernice Warren RN - Last Filed: 02/19/24 13:46> [facility] Medical History Angina pectoris Bilateral carotid artery [...] Stomach morphine AdvReac Nausea Verified 02/19/24 10:57 Qxlqktp-KAB-WzD Reductase AdvReac Nausea Verified 02/19/24 10:57 Inhibitor [Ucwtpkt-Got-Xui Reductase Inhibitor] Family History Mother Cancer CAD [...] Warren RN - Last Filed: 02/19/24 13:46> [facility] MDM Narrative Medical decision making narrative: Patient placed on product support engineer. IV line initiated. Labwork obtained to evaluate [...] 73.5 H Lymph % (Auto) 14.5 L [place] % (Auto) 8.5 Eos % (Auto) 2.6 [...] in both arms to rule out dissection. Etmbf-ys-xwuk glucose was obtained to rule out hypoglycemia. [...] Medical decision making narrative: Patient placed on product support engineer. IV line initiated. Labwork obtained to evaluate [...] 73.5 H Lymph % (Auto) 14.5 L [place] % (Auto) 8.5 Eos % (Auto) 2.6 [...] for hypertension and pneumonia), Discussing w/Patient &/or Family/Mexican Food Cook, Discussing w/Consultants (Spoke with Dr. Chamorro who referred patient to Dr. Roman Mckeon. Patient was accepted.) and Arranging Admission or Transfer Discharge Plan Dx/Rx/DC Orders Clinical Impression: Acute hypotension, Essential (primary) hypertension, Atrial fibrillation, Community acquired pneumonia, Atypical chest pain, Signs and symptoms of anemia,Symptomatic anemia, Peripheral vascular occlusive disease Disposition Disposition: Acute Care Hospital [facility] What to do if you have Problems For any increased pain, shortness of breath, bleeding, nausea or vomiting, chestpain, or any unexpected problems, contact your Primary Care Provider. Call [facility] ([phone]) or report to the closest Emergency Room. Call 911 if necessary. 02/19/24 1439 <Electronically signed by Jeffy Willoughby MD> Cosigner Signature (if applicable): 02/19/24 1346 <Electronically signed by Bernice Warren RN> CC: Dr. Daron Benton MD ~ Signed [facility] Work Phone: 1(669) 593-515504-02-2024 Discharge summary Author Jeffy Willoughby [facility] February 19, 2024 2:59pm Note Date/Time February 19, 2024 12:[address] [facility] Medical Records Department [address] [place] [address] Emergency Department Summary 02/19/24 MR#: [id number] Acct: [id number] Name: ANGÉLICA YO Rep #:[id number] 6 : 1955 68 From: Jeffy Willoughby MD PCP: Dr. Daron Benton MD Status:REG ER Location: ED ADDENDUM by Dr. Jeffy Willoughby MD on 02/19/24 at 1459 EKG reveals atrial fibrillation with a ventricular rate 87. QRS duration 84 ms. QT duration 414 ms. [place] is normal. QT is prolonged. 02/19/24 1459<Electronically [...] Prior similar symptoms: Yes Recent Illness/Hospitalization: No [facility] <Bernice Warren RN - Last Filed: 02/19/24 13:46> [facility] Medical History Angina pectoris Bilateral carotid artery [...] Stomach morphine AdvReac Nausea Verified 02/19/24 10:57 Iwatxhm-REP-IoR Reductase AdvReac Nausea Verified 02/19/24 10:57 Inhibitor [Wqgniqp-Xoh-Szz Reductase Inhibitor] Family History Mother Cancer CAD [...] Warren RN - Last Filed: 02/19/24 13:46> MDM MDM Narrative Medical decision making narrative: Patient placed on product support engineer. IV line initiated. Labwork obtained to evaluate [...] 73.5 H Lymph % (Auto) 14.5 L [place] % (Auto) 8.5 Eos % (Auto) 2.6 [...] Signed: Jovon Freitas MD at 12:50 EDT Reading Location ID and State: [facility] / [place] , Service support , EKG Initial EKG: Attestation: I personally [...] in both arms to rule out dissection. Bvbwe-df-dmsk glucose was obtained to rule out hypoglycemia. [...] Willoughby MD - Last Filed: 02/19/24 14:39> [facility] MDM Narrative Medical decision making narrative: Patient placed on product support engineer. IV line initiated. Labwork obtained to evaluate [...] 73.5 H Lymph % (Auto) 14.5 L [place] % (Auto) 8.5 Eos % (Auto) 2.6 [...] for hypertension and pneumonia), Discussing w/Patient &/or Family/Mexican Food Cook, Discussing w/Consultants (Spoke with Dr. Chamorro who referred patient to Dr. Roman Mckeon. Patient was accepted.) and Arranging Admission or Transfer Discharge Plan Dx/Rx/DC Orders Clinical Impression: Acute hypotension, Essential (primary) hypertension, Atrial fibrillation, Community acquired pneumonia, Atypical chest pain, Signs and symptoms of anemia,Symptomatic anemia, Peripheral vascular occlusive disease Disposition Disposition: Acute Care Hospital [facility] What to do if you have Problems For any increased pain, shortness of breath, bleeding, nausea or vomiting, chestpain, or any unexpected problems, contact your Primary Care Provider. Call [facility] ([phone]) or report to the closest Emergency Room. Call 911 if necessary. 02/19/24 1439 <Electronically signed by Jeffy Willoughby MD> Cosigner Signature (if applicable): 02/19/24 1346 <Electronically signed by Bernice Warren RN> CC: Dr. Daron Benton MD ~ Signed [facility] Work Phone: 1(938) 760-180004-02-2024 History and physical note Author Roman Mckeon [facility] February 19, 2024 3:25pm Note Date/Time February 19, 2024 2:26 pm [facility] Medical Records Department [address] [place] [address] H&P Exam - Hospitalist 02/19/24 1426 MR#: [id number] Acct: [id number] Name: CHRISTINANGÉLICA DARDEN Rep #:[id number] 0 : 1955 68 From: Roman Mckeon [...] Admitted to monitored bed for further management [facility] Medical History Angina pectoris Bilateral carotid artery [...] Stomach morphine AdvReac Nausea Verified 02/19/24 10:57 Bfvokbb-ZGT-EdB Reductase AdvReac Nausea Verified 02/19/24 10:57 Inhibitor [Ckqtbva-Anq-Ksu Reductase Inhibitor] Family History Mother Cancer CAD [...] 73.5 H, Lymph % (Auto) 14.5 L, [place] % (Auto) 8.5, Eos % (Auto) 2.6, [...] 18 minutes. Charges/Coding Visit Charges Inpatient E&M: 73811 Init Hosp L3 Procedures Hospitalists Procedures: 07926 Advncd Care Plan 30 Min 02/19/24 1525 <Electronically signed by Roman Mckeon MD> Cosigner Signature (if applicable): CC: Dr. Roman Mckeon MD; Dr. Daron Benton MD~ Signed [facility] Work Phone: 1(369) 290-354803-25-2024 Telephone encounter Note* Telephone Encounter - Nicole Cota - 02/11/2024 [...] prior to picking up the medication: N/A Cross[employer] [id number] Miscellaneous Notes* Telephone Encounter - Nicole Cota [...] up the medication: N/A documented in this [facility]02-23-2024 Discharge summary Author Jori Garcia [facility] January 11, 2024 8:14am Note Date/Time January 11, 2024 2:45am [facility] Medical Records Department [address] [place] [address] Emergency Department Summary 01/11/24 MR#: [id number] Acct: [id number] Name: ANGÉLICA YO Rep #:[id number] 4 : 1955 68 From: Jori Garcia MD PCP: Dr. Daron Benton MD Status:[facility] ER Location: ED HPI HPI - Fall [...] in her ears, following with neurology at [facility], and has been having dizziness related [...] she has osteoporosis. Sheis on no anticoagulants. [facility] Medical History Angina pectoris Bilateral carotid artery [...] Stomach morphine AdvReac Nausea Verified 01/11/24 02:15 Hniuzes-XFB-LaE Reductase AdvReac Nausea Verified 01/11/24 02:15 Inhibitor [Ldzdxbh-Yev-Kyh Reductase Inhibitor] Family History Mother Cancer CAD [...] motor deficits and no sensory deficits noted Mineral Coma Scale: document GCS findings Spontaneous Obeys [...] (prior Afib thought to have caused CVA/TIA, CBK6QK0-ULSd score of 4, prescribed Eliquis but patient [...] 85.1 H Lymph % (Auto) 5.2 L [place] % (Auto) 7.7 Eos % (Auto) 0.2 [...] Clarity Clear Urine pH 7.0 Ur Specific [place] 1.010 Urine Protein Negative Urine Glucose (UA) [...] (Auto) Neut % (Auto) Lymph % (Auto) [place] % (Auto) Eos % (Auto) Baso % (Auto) Absolute Neuts (auto) Absolute Lymphs (auto) Nucleated RBC % Sodium Potassium Chloride Carbon Dioxide Anion Gap BUN Creatinine Estim Creat Clear Calc Est GFR (MDRD) Af Amer Est GFR (MDRD) Non-Af BUN/Creatinine Ratio Glucose Lactic Acid Calcium Magnesium Troponin I High Sens 17 Urine Color Urine Clarity Urine pH Ur Specific [place] Urine Protein Urine Glucose (UA) Urine Ketones [...] your Primary Care Provider. Call [facility] ([phone]) or report to the closest Emergency Room. Call 911 if necessary. 01/11/24 0814 <Electronically signed by Jori Garcia MD> Cosigner Signature (if applicable): CC: Dr. Tye Barnett MD; Dr. Daron Benton MD; MARIANA Candelario ~ Signed [facility] Work Phone: 1(189) 778-311101-26-2024 History of Present illness Narrative* Lizz Lynn, ANTWON - THRESHER BROOMCORN - 12/14/2023 2:00 PM EST Visit type: [...] after hospital: Pt states she presented to [facility] with dizziness, feeling unbalanced, high BP [...] unsure how much solumedrol she received. From [facility] records: CT brain 12/02/23: no acute intracranial [...] TSH VITAMIN B12: No results found for: MNJSCTAY50 No results found for: PHENYTOIN, PHENOBARB, VALPROATE, CBMZ No components found for: TOPIRA @RESULTINGLABINFO@ No results found for: LEVETIRACETA, FERRITIN, CRP, DENNIS, ANCA No results found for: CHRISTIANO, IMMUNOGLOBUL, OLIGOBANDS No results found for: AFB19MX, HEPCAB No results found for: CRP, ANATITER, ANCA FERRITIN: No results found for: FERRITIN ---- ECG 12 lead SINUS BRADYCARDIA PROBABLE LEFT ATRIAL ABNORMALITY No previous ECG available for comparison Electronically Signed On 04-05-2023 7:42:10 EDT by Juvenal Benton @[facility]@ IMPRESSION and PLAN: Problem List Items Addressed [...] 1 tablet on day 5 MRI from [facility] does not show reason for this; exam consistent with vertigo; will order vestibular theapy Vestibular therapy Referral to [facility]. No problem-specific Assessment & Plan notes found for this encounter. ANTWON Harrington CNP I spent 60 minutes caring for this patient today, reviewing labs, records, seeing the patient, documenting in the record and arranging for studies. Electronically signed by ANTWON Harrington CNP on @TDNR@ at @NOWNR@ documented in this [facility]01-26-2024 Instructions* Patient Instructions* ANTWON Harrington CNP - 12/14/2023 2:00 PM EST Prednisone 20mg: take 5 tablets on day 1, 4 tablets on day 2, 3 tablets on day 3, 2 tablets on day 4, and 1 tablet on day 5 Vestibular therapy at [facility] [phone] [facility] for eye exam: [phone] documented in this [facility]01-19-2024 Discharge summary Author Sachin Murillo [facility] December 07, 2023 12:49pm Note Date/Time December 07, 2023 1 2:38pm [facility] Medical Records Department [address] [place] [address] Instructions for Home/Discharge Instructions 12/07/23 1238 MR#: [id number] Acct: [id number] Name: ANGÉLICA YO Rep #:[id number] 3 : 1955 68 From: Sachin chan [...] can be placed): Home Health Service 12/07/23 1249<Electronically signed by Sachin Murillo MD>Sachin Murillo MD [...] Rhiannon Farris DO; Keyona Davidson MD ~ Signed [facility] Work Phone: 1(670) 690-671501-18-2024 Progress note Author Sachin Murillo [facility] December 06, 2023 9:04am Note Date/Time December 06, 2023 9 :04am [facility] Medical Records Department [address] [place] [address] Progress Note - Hospitalist 12/06/23 0900 MR#: [id number] Acct: [id number] Name: ANGÉLICA YO Rep #:[id number] 3 : 1955 68 From: Sachin chan [...] 340 / 340 636 / 636 212 / 212 Output Total 200 / 200 Balance 140 / 140 636 / 636 212 / 212 Lab / Micro Data 12/06/23 04:50 12/06/23 [...] (Auto) 79.3 H, Lymph % (Auto) 10.6L, [place] % (Auto) 9.4, Eos % (Auto) 0.0, [...] Signed: Angle Reynoso MD at 13:44 EST Reading Location ID and State: [facility] / [place] Tel , Service support , Rhythm Strip Rhythm Strip: Sinus Rhythm [...] Continue with Synthroid DVT: Eliquis Capacity Legal Vice President Of Development Reflex Medical hold order details:: IF a medical hold is selected below, a suggested order for a MEDICAL HOLD will reflex upon signing the document. Next of kin: [place] law dictates a PRIORITY LIST for identifying legal decision-maker/legal next of kin in the following order (LNOK): 1st: The patient?s legal guardian, if any 2nd: The patient's spouse (if status is questionable, consult Risk Management) 3rd: The patient?s adult child(blaine) (majority, if multiple children) 4th: The patient?s parents 5th: The patient?s adult siblings (majority, if multiple children siblings) Charges/Coding Visit Charges Inpatient E&M: 10896 Subs Hosp L2 12/06/23 0904 <Electronically signed by Sachin Murillo MD> Cosigner Signature (if applicable): CC: ~ Signed [facility] Work Phone: 1(896) 989-820901-17-2024 Progress note Author Kiley Carpenter [facility] December 05, 2023 3:42pm Note Date/Time December 05, 2023 1 :57pm [facility] Medical Records Department [address] [place] [address] Progress Note - Neurology 12/05/23 1348 MR#: [id number] Acct: [id number] Name: ANGÉLICA YO Rep #:[id number] 3 : 1955 68 From: Kiley Carpenter [...] NIHSS: Ischemic Stroke/TIA Start: 12/03/23 09:41 Freq: [id number] Status: Active Protocol: Activity Type Activity Date [...] 90.5 H, Lymph % (Auto) 5.1 L, [place] % (Auto) 3.7, Eos % (Auto) 0.0, [...] stomach. No bowel obstruction. Electronically Signed: Elijah Pollcak MD at 18:30 EST , Brain CT [...] Signed: Angle Reynoso MD at 13:44 EST Reading Location ID and State: [facility] / [place] Tel , Service support , Rhythm Strip Rhythm Strip: Sinus Rhythm [...] 5 5 EF 5 5 WE WF Grinding Mill Operator 5 5 HF 3 5 KE 4 5 KF 5 4 DF 5 5 PF 5 5 -? Sensation- Intact to light touch bilaterally -? Coordination: improved ataxia on the RLE (not prominent); b/l UE with no ataxia -? Gait- deferred 12/05/23 1542 <Electronically signed by Kiley Carpenter MD> Cosigner Signature (if applicable): CC: ~ Signed [facility] Work Phone: 1(202) 583-184501-17-2024 Progress note Author Sachin Murillo [facility] December 05, 2023 10:21am Note Date/Time December 05, 2023 1 0:21am [facility] Medical Records Department [address] [place] [address] Progress Note - Hospitalist 12/05/23 1016 MR#: [id number] Acct: [id number] Name: ANGÉLICA YO Rep #:[id number] 1 : 1955 68 From: Sachin chan [...] 90.5 H, Lymph % (Auto) 5.1 L, [place] % (Auto) 3.7, Eos % (Auto) 0.0, [...] meds as needed DVT: Eliquis Capacity Legal Vice President Of Development Reflex Medical hold order details:: IF a medical hold is selected below, a suggested order for a MEDICAL HOLD will reflex upon signing the document. Next of kin: [place] law dictates a PRIORITY LIST for identifying legal decision-maker/legal next of kin in the following order (LNOK): 1st: The patient?s legal guardian, if any 2nd: The patient's spouse (if status is questionable, consult Risk Management) 3rd: The patient?s adult child(blaine) (majority, if multiple children) 4th: The patient?s parents 5th: The patient?s adult siblings (majority, if multiple children siblings) Charges/Coding Visit Charges Inpatient E&M: 68388 Subs Hosp L2 12/05/23 1021 <Electronically signed by Sachin Murillo MD> Cosigner Signature (if applicable): CC: ~ Signed [facility] Work Phone: 1(101) 545-979201-17-2024 Progress note Author Jorge Hurtado [facility] December 05, 2023 8:31am Note Date/Time December 05, 2023 7 :39am [facility] Medical Records Department [address] [place] [address] Progress Note - Thread Clipper 12/05/23 0737 MR#: [id number] Acct: [id number] Name: ANGÉLICA YO Rep #:[id number] 1 : 1955 68 From: Jorge Hurtado [...] noted above. This note was generated with [employer] dictation software. It may contain incorrectwords, spelling, [...] 90.5 H, Lymph % (Auto) 5.1 L, [place] % (Auto) 3.7, Eos % (Auto) 0.0, [...] Psych cooperative Charges/Coding Visit Charges Inpatient E&M: 40671 Subs Hosp L2 12/05/23 0831 <Electronically signed by Jorge Hurtado DO> Cosigner Signature (if applicable): CC: ~ Signed [facility] Work Phone: 1(924) 529-368401-17-2024 Progress note Author Kiley Carpenter [facility] December 04, 2023 10:44pm Note Date/Time December 04, 2023 8 :19pm [facility] Medical Records Department [address] [place] [address] Progress Note - Neurology 12/04/232014 MR#: [id number] Acct: [id number] Name: ANGÉLICA YO Rep #:[id number] 8 : 1955 68 From: Kiley Carpenter [...] NIHSS: Ischemic Stroke/TIA Start: 12/03/23 09:41 Freq: [id number] Status: Active Protocol: Activity Type Activity Date [...] Balance 406 / 406 2166 / 2166 28 / 28 Lab / Micro Data 12/04/23 04:25 12/04/23 [...] (Auto) 91.9 H, Lymph % (Auto)4.1 L, [place] % (Auto) 3.1, Eos % (Auto) 0.0, [...] Cosigner Signature (if applicable): CC: ~ Signed [facility] Work Phone: 1(958) 960-914701-16-2024 Consult note Author Jorge Hurtado [facility] December 04, 2023 2:14pm Note Date/Time December 04, 2023 7 :20am [facility] Medical Records Department [address] [place] [address] Consultation - Thread Clipper 12/04/23 0715 MR#: [id number] Acct: [id number] Name: ANGÉLICA YO Rep #:[id number] 6 : 1955 68 From: Jorge Hurtado [...] noted above. This note was generated with [employer] software. It may contain incorrectwords, spelling, and [...] maintained on Eliquis, Plavix, Neurontin and antimicrobials. [facility] Medical History Angina pectoris Bilateral carotid artery [...] Stomach morphine AdvReac Nausea Verified 11/26/23 12:47 Hsqblbw-GPE-CmA Reductase AdvReac Nausea Verified 11/26/23 12:47 Inhibitor [Uppvzzb-Xnr-Jgf Reductase Inhibitor] Family History Mother Cancer CAD [...] (Auto) 91.9 H, Lymph % (Auto)4.1 L, [place] % (Auto) 3.1, Eos % (Auto) 0.0, [...] MD at 22:18 EST , Capacity Legal Vice President Of Development Reflex Medical hold order details:: IF a medical hold is selected below, a suggested order for a MEDICAL HOLD will reflex upon signing the document. Next of kin: [place] law dictates a PRIORITY LIST for identifying legal decision-maker/legal next of kin in the following order (LNOK): 1st: The patient?s legal guardian, if any 2nd: The patient's spouse (if status is questionable, consult Risk Management) 3rd: The patient?s adult child(blaine) (majority, if multiple children) 4th: The patient?s parents 5th: The patient?s adult siblings (majority, if multiple children siblings) Charges/Coding Visit Charges Inpatient E&M: 15227 Init Hosp L3 12/04/23 1414 <Electronically signed [...] Rhiannon Farris DO; Keyona Davidson MD~ Signed [facility] Work Phone: 1(957) 707-833501-16-2024 Progress note Author Sachin Murillo [facility] December 04, 2023 9:58am Note Date/Time December 04, 2023 9 :58am [facility] Medical Records Department [address] [place] [address] Progress Note - Hospitalist 12/04/23 0953 MR#: [id number] Acct: [id number] Name: ANGÉLICA YO Rep #:[id number] 1 : 1955 68 From: Sachin chan [...] (Auto) 91.9 H, Lymph % (Auto)4.1 L, [place] % (Auto) 3.1, Eos % (Auto) 0.0, [...] meds as needed DVT: Eliquis Capacity Legal Vice President Of Development Reflex Medical hold order details:: IF a medical hold is selected below, a suggested order for a MEDICAL HOLD will reflex upon signing the document. Next of kin: [place] law dictates a PRIORITY LIST for identifying legal decision-maker/legal next of kin in the following order (LNOK): 1st: The patient?s legal guardian, if any 2nd: The patient's spouse (if status is questionable, consult Risk Management) 3rd: The patient?s adult child(blaine) (majority, if multiple children) 4th: The patient?s parents 5th: The patient?s adult siblings (majority, if multiple children siblings) Charges/Coding Visit Charges Inpatient E&M: 63779 Subs Hosp L2 12/04/23 0958 <Electronically signed by Sachin Murillo MD> Cosigner Signature (if applicable): CC: ~ Signed [facility] Work Phone: 1(948) 932-712101-16-2024 Progress note Author Roman Hewitt [facility] December 04, 2023 12:19am Note Date/Time December 03, 2023 8 :22pm [facility] Medical Records Department [address] [place] [address] Progress Note - Hospitalist 12/03/232018 MR#: [id number] Acct: [id number] Name: ANGÉLICA YO Rep #:[id number] 9 : 1955 68 From: Roman Ortega [...] this time. I patiently spoke to the PATIENT CARE MANAGER and informed her to send the patient [...] sonwas updated with results. RUN DATE: 12/03/23 [facility], DEPARTMENT OF LABORATORIES PAGE 1 RUN TIME: 2038 Specimen Inquiry [address] [place], [place], [id number] PATIENT: ANGÉLICA YO LOC: ICU U #: [id number] : 1955 AGE/SX: 68/F FACILITY: [facility] ROOM: ICU02 RE12/02/[address]: Dr. Sachin Murillo STATUS:ADM IN ED: 1 DIS: ~ SPEC #: [id number] LIZBET: 12/03/23 STATUS: COMP REQ #: [id number] RECD: 12/03/[address]: Dr. Sachin Murillo MD ENTERED: 12/03/23-1501 [facility] DR: Kt Friend MD, Amir Hinduja, Archana MD Jordan, Allison Alicia Zha, MD Dr. Deepak Gulati, [...] CO2 23 mmol/L SO2 95 95-99 % [facility] Imaging Services [address] [place] [address] CTA Head AND Neck W/ Contrast MR#: [id number] Acct: [id number] Name: ANGÉLICA YO Rep #: [id number] : 1955 F 68 From: Charmaine Grant MD PCP: Dr. Daron Benton MD Status: ADM IN Study: CTA Head AND Neck W/ Contrast Date of Exam: 12/03/23 Exam# [id number] Ordering Dr: Roman Miller DO STUDY: CTA [...] There is no demonstrated aneurysm of the [place] of [place]. There is no demonstrated abnormality [...] Charmaine Grant MD at 22:18 EST , CC: Dr. Roman Miller DO; Dr. Daron Benton MD ~ Fountain Supervisor: Signed 12/04/23 0019 <Electronically signed by Roman Miller DO> Cosigner Signature (if applicable): CC: ~ Signed [facility] Work Phone: 1(260) 733-778801-15-2024 Progress note Author Sachin Murillo [facility] December 03, 2023 2:31pm Note Date/Time December 03, 2023 2 :22pm [facility] Medical Records Department [address] [place] [address] Progress Note - Hospitalist 12/03/23 1419 MR#: [id number] Acct: [id number] Name: ANGÉLICA YO Rep #:[id number] 5 : 1955 68 From: Sachin chan MD PCP: Dr. Daron Benton MD Status:ADM IN Location: [place] [address] Subjective Subjective She was a stroke alert [...] 88.4 H, Lymph % (Auto) 10.2 L, [place] % (Auto) 0.8, Eos % (Auto) 0.0, [...] meds as needed DVT: Eliquis Capacity Legal Vice President Of Development Reflex Medical hold order details:: IF a medical hold is selected below, a suggested order for a MEDICAL HOLD will reflex upon signing the document. Next of kin: [place] law dictates a PRIORITY LIST for identifying legal decision-maker/legal next of kin in the following order (LNOK): 1st: The patient?s legal guardian, if any 2nd: The patient's spouse (if status is questionable, consult Risk Management) 3rd: The patient?s adult child(blaine) (majority, if multiple children) 4th: The patient?s parents 5th: The patient?s adult siblings (majority, if multiple children siblings) Charges/Coding Visit Charges Inpatient E&M: 67890 Subs Hosp L2 12/03/23 1431 <Electronically signed by Sacihn Murillo MD> Cosigner Signature (if applicable): CC: ~ Signed [facility] Work Phone: 1(163) 714-967301-14-2024 Consult note Author Kiley Carpenter [facility] December 02, 2023 2:51pm Note Date/Time December 02, 2023 2 :05pm [facility] Medical Records Department [address] [facility] [place] [address] Consultation - Neurology 12/02/23 1403 MR#: [id number] Acct: [id number] Name: ANGÉLICA YO Rep #:[id number] 9 : 1955 68 From: Kiley Carpenter MD PCP: Dr. Daron Benton MD Status:ADM [facility] Assessment and Plan: Neuro Assessment/Plan ANGÉLICA YO [...] any urinary symptoms. Her neurologist is in [place]. ANGÉLICA YO, is a 68 F with [...] hrs Had her aneurysm coiled in 2013. 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 5 5 HF 3 4 KE [...] % (Auto) 56.3, Lymph % (Auto) 28.5, [place] % (Auto) 12.7 H, Eos % (Auto) [...] Clarity Clear, Urine pH 6.5, Ur Specific [place] 1.015, Urine Protein 15 H, Urine Glucose [...] 12:45 Baclofen 10 Mg Tablet PO Q8 VIMAL Cholecalciferol 125 mcg 12/03/23 10:00 Cholecalciferol (Vit D3) 125 Mcg Capsule (5,000 Units) PO DAILY VIMAL Clopidogrel Bisulfate 75 mg 12/03/23 10:00 Clopidogrel Bisulfate 75 Mg Tablet PO DAILY VIMAL Docusate Sodium 100 mg 12/02/23 12:37 Docusate Sodium 100 Mg Capsule PO BID PRN PRN Constipation Gabapentin 800 mg 12/02/23 12:45 Gabapentin 800 Mg Tablet PO TIDCM VIMAL Guaifenesin 1 tablet 12/02/23 22:00 Guaifenesin/D-Methorphan Tab.Sr.12h PO Q12 VIMAL Guaifenesin 20 ml 12/02/23 12:37 Guaifenesin 10 Ml Udc (200mg/10ml) PO Q4H PRN PRN COUGH Potassium Chloride/Dextrose/Sod Cl 20 meq in 1,000 mls @ 100 mls/hr 12/02/23 12:37 IV 12/03/23 08:36 .Q10H VIMAL Ceftriaxone Sodium 1 gm in 50 mls @ 100 mls/hr 12/02/23 12:37 Rocephin IV 12/09/23 12:38 Q24 VIMAL Levothyroxine Sodium 50 mcg 12/03/23 06:00 Levothyroxine 50 Mcg Tablet PO DAILY@0600 VIMAL Lisinopril 5 mg 12/03/23 10:00 Lisinopril 5 Mg Tablet PO DAILY [facility] Protocol Melatonin 3 mg 12/02/23 12:37 Melatonin 3 Mg Tablet PO QHS PRN PRN INSOMNIA Metoprolol Tartrate 12.5 mg 12/02/23 22:00 Metoprolol Tartrate 25 Mg Tablet PO BID [facility] Protocol Nitroglycerin 0.4 mg 12/02/23 12:37 Nitroglycerin [...] Arleen Estrada DO; Keyona Davidson MD~ Signed [facility] Work Phone: 1(187) 251-221501-14-2024 Discharge summary Author Gabriella Simpson [facility] December 02, 2023 1:21pm Note Date/Time December 02, 2023 8 :23am [facility] Medical Records Department [address] [place] [address] Emergency Department Summary 12/02/23 MR#: [id number] Acct: [id number] Name: ANGÉLICA YO Rep #:[id number] 6 : 1955 68 From: Gabriella Green PCP: Dr. Daron Benton MD Status:ADM IN Location: [address] History of Present Illness Chief Complaint: Dizziness [...] any urinary symptoms. Her neurologist is in [place]. [facility] Medical History Angina pectoris Bilateral carotid artery [...] Stomach morphine AdvReac Nausea Verified 11/26/23 12:47 Ddmbdqh-WUE-XaM Reductase AdvReac Nausea Verified 11/26/23 12:47 Inhibitor [Sfwrjfp-Vzr-Cgd Reductase Inhibitor] Family History Mother Cancer CAD [...] off the bed. Is able to do ebqbzx-is-umlh but has bilateral ataxia with it. Too [...] to touch my finger her nose with rnycib-kn-srbu. Her symptoms started at least 24 hours [...] % (Auto) 56.3 Lymph % (Auto) 28.5 [place] % (Auto) 12.7 H Eos % (Auto) [...] Clarity Clear Urine pH 6.5 Ur Specific [place] 1.015 Urine Protein 15 H Urine Glucose [...] 8:45 EST Reading Location ID and State: [facility] / [place] Tel , Service support , Chest X-Ray [...] Multiple sclerosis Disposition Disposition: Acute Care Hospital [facility] Discharge Date/Time: 12/02/23 12:36 What to do if you have Problems For any increased pain, shortness of breath, bleeding, nausea or vomiting, chestpain, or any unexpected problems, contact your Primary Care Provider. Call [facility] ([phone]) or report to the closest Emergency Room. Call 911 if necessary. 12/02/23 1321 <Electronically signed by Gabriella Simpson DO> Cosigner Signature (if applicable): CC: Dr. Daron Benton MD ~ Signed [facility] Work Phone: 1(864) 652-857301-14-2024 History and physical note Author Roman Mckeon [facility] December 02, 2023 11:53am Note Date/Time December 02, 2023 1 1:43am [facility] Medical Records Department [address] [place] [address] H&P Exam - Hospitalist 12/02/23 1140 MR#: [id number] Acct: [id number] Name: ANGÉLICA YO Rep #:[id number] 9 : 1955 68 From: Roman Mckeon MD PCP: Dr. Daron Benton MD Status:ADM IN Location: [place] [address]-1 HPI - General General Date of Admission: [...] to a monitored bed for further management [facility] Medical History Angina pectoris Bilateral carotid artery [...] Stomach morphine AdvReac Nausea Verified 11/26/23 12:47 Dqbyfqi-EAK-DuN Reductase AdvReac Nausea Verified 11/26/23 12:47 Inhibitor [Uktbfyr-Wpj-Gbl Reductase Inhibitor] Family History Mother Cancer CAD [...] % (Auto) 56.3, Lymph % (Auto) 28.5, [place] % (Auto) 12.7 H, Eos % (Auto) [...] Clarity Clear, Urine pH 6.5, Ur Specific [place] 1.015, Urine Protein 15 H, Urine Glucose [...] 18 minutes. Charges/Coding Visit Charges Inpatient E&M: 69518 Init Hosp L3 Procedures Hospitalists Procedures: 16892 Advncd Care Plan 30 Min 12/02/23 1153 <Electronically signed by Roman Mckeon MD> Cosigner Signature (if applicable): CC: Dr. Roman Mckeon MD; Dr. Daron Benton MD~ Signed [facility] Work Phone: 1(920) 974-421401-09-2024 Discharge summary Author Ramírez Onofre [facility] November 27, 2023 11:55am Note Date/Time November 27, 2023 9: 40am [facility] Medical Records Department [address] [place] [address] Emergency Department Summary 11/27/23 MR#: [id number] Acct: [id number] Name: ANGÉLICA YO Rep #:[id number] 3 : 1955 68 From: Ramírez Onofre [...] Prior similar symptoms: No Recent [facility] Medical History Angina pectoris Bilateral carotid artery [...] Stomach morphine AdvReac Nausea Verified 11/26/23 12:47 Nbpgoxc-HNB-UyU Reductase AdvReac Nausea Verified 11/26/23 12:47 Inhibitor [Gbvkipb-Oma-Egr Reductase Inhibitor] Family History Mother Cancer CAD [...] moving all 4 extremities. She has 5-5 bobbin cleaner strength equal and symmetrical. Dorsi and plantarflexion [...] 71.7 H Lymph % (Auto) 16.8 L [place] % (Auto) 9.9 Eos % (Auto) 0.4 [...] rate of 50 no acute signs of AR or ischemia. No significant change from November [...] your Primary Care Provider. Call [facility] ([phone]) or report to the closest Emergency Room. Call 911 if necessary. 11/27/23 1155 <Electronically signed by Ramírez Onofre MD> Cosigner Signature (if applicable): CC: Dr. Daron Benton MD ~ Signed [facility] Work Phone: 1(896) 417-115301-03-2024 Discharge summary Author Sachin Murillo [facility] November 21, 2023 9:07am Note Date/Time November 21, 2023 8: 56am [facility] Medical Records Department [address] [place] [address] Instructions for Home/Discharge Instructions 11/21/23 0855 MR#: [id number] Acct: [id number] Name: ANGÉLICA YO Rep #:[id number] 2 : 1955 68 From: Sachin chan [...] am Betsey Lindquist PA [Med Staff - [facility]] - Within 1 Month Disposition Disposition (needs filled in before D/C Order can be placed): Home, Self Care 11/21/23 0907<Electronically signed by Sachin Murillo MD>Sachin Murillo MD CC: Dr. Sommer Resendiz MD; Dr. Daron Benton MD ~ Signed [facility] Work Phone: 1(703) 336-850201-02-2024 Progress note Author [facility] November 20, 2023 10:23am Note Date/Time November 20, 2023 10 :23am [facility] Medical Records Department [address] [place] [address] Progress Note - Hospitalist 11/20/23 1021 MR#: [id number] Acct: [id number] Name: ANGÉLICA YO Rep #:[id number] 6 : 1955 68 From: Sachin chan MD PCP: Dr. Daron Benton MD Status:ADM IN Location: [place] [address] Subjective Subjective Still feels fatigued and unwell [...] 81.9 H, Lymph % (Auto) 5.9 L, [place] % (Auto) 9.8, Eos % (Auto) 0.1, [...] 14:56 EST Reading Location ID and State: [facility] / [place] Tel , Service support , Physical Exam [...] DVT: SCDs Charges/Coding Visit Charges Inpatient E&M: 42381 Subs Hosp L2 11/20/23 1023 <Electronically signed by Sachin Murillo MD> Cosigner Signature (if applicable): CC: ~ Signed [facility] Work Phone: 1(812) 842-110501-01-2024 Progress note Author Sachin Murillo [facility] November 19, 2023 10:52am Note Date/Time November 19, 2023 10 :52am [facility] Medical Records Department [address] [place] [address] Progress Note - Hospitalist 11/19/23 1046 MR#: [id number] Acct: [id number] Name: ANGÉLICA YO Rep #:[id number] 6 : 1955 68 From: Sachin chan MD PCP: Dr. Daron Benton MD Status:ADM IN Location: [place] [address] Subjective Subjective Doing well, no issues overnight. [...] % (Auto) 66.4, Lymph % (Auto) 19.4, [place] % (Auto) 12.9 H, Eos % (Auto) [...] Clarity Clear, Urine pH 6.0, Ur Specific [place] 1.015, Urine Protein Negative, Urine Glucose (UA) [...] (Auto) 67.7, Lymph % (Auto) 17.1 L, [place] % (Auto) 13.3 H, Eos % (Auto) [...] DVT: SCDs Charges/Coding Visit Charges Inpatient E&M: 06210 Subs Hosp L2 11/19/23 1052 <Electronically signed by Sachin Murillo MD> Cosigner Signature (if applicable): CC: ~ Signed [facility] Work Phone: 1(879) 537-557612-31-2023 History and physical note Author Sommer Resendiz [facility] November 18, 2023 8:55pm Note Date/Time November 18, 2023 2:14pm [facility] Medical Records Department [address] [place] [address] H&P Exam - Hospitalist 11/18/23 1413 MR#: [id number] Acct: [id number] Name: ANGÉLICA YO Rep #:[id number] 5 : 1955 68 From: Sommer Resendiz MD PCP: Dr. Daron Benton MD Status:ADM [facility] HPI - General General Date of Admission: [...] injury associated to now represents to the [facility] ED on 11/18/23 with history of initially [...] and Zofran 4 mg IV x 1. [facility] Medical History Angina pectoris Bilateral carotid artery [...] Stomach morphine AdvReac Nausea Verified 11/15/23 11:27 Csbaplo-ZLR-WiM Reductase AdvReac Nausea Verified 11/15/23 11:27 Inhibitor [Fyishbe-Yuy-Ndc Reductase Inhibitor] Family History Mother Cancer CAD [...] % (Auto) 66.4, Lymph % (Auto) 19.4, [place] % (Auto) 12.9 H, Eos % (Auto) [...] Clarity Clear, Urine pH 6.0, Ur Specific [place] 1.015, Urine Protein Negative, Urine Glucose (UA) [...] Chago Mcintyre MD at 13:04 EST , Assessment & Plan Assessment/Plan (1) Atrial fibrillation: PLAN: Plan The patient is a 68 y/o F w/ PMHx: Hx Cerebral aneurysm, Chronic pain syndrome, HTN, HLD, Hx TIA, Multiple Sclerosis, Nonobstructive CAD, Psoriatic arthritis, PAD, NS SVT, GERD, Hypothyroidism, Carotid disease, Tobacco use, admitted 11/15/23- 11/16/23 with influenza A and acute kidney injury associated to now represents to the [facility] ED on 11/18/23 with history of initially [...] Code status. Charges/Coding Visit Charges Inpatient E&M: 85599 Init Hosp L3 11/18/232054 <Electronically signed by Sommer Resendiz MD> Cosigner Signature (if applicable): CC: Dr. Sommer Resendiz MD; Dr. Daron Benton MD~ Signed [facility] Work Phone: 1(994) 155-317712-31-2023 Discharge summary Author Michele Kebede [facility] November 18, 2023 3:08pm Note Date/Time November 18, 2023 12:03pm [facility] Medical Records Department [address] [place] [address] Emergency Department Summary 11/18/23 MR#: [id number] Acct: [id number] Name: ANGÉLICA YO Rep #:[id number] 0 : 1955 68 From: Michele Kebede [...] states she has never had atrial fibrillation. [facility] Medical History Angina pectoris Bilateral carotid artery [...] Stomach morphine AdvReac Nausea Verified 11/15/23 11:27 Guporlh-DEW-YwP Reductase AdvReac Nausea Verified 11/15/23 11:27 Inhibitor [Fedrfrx-Xxu-Fyo Reductase Inhibitor] Family History Mother Cancer CAD [...] % (Auto) 66.4 Lymph % (Auto) 19.4 [place] % (Auto) 12.9 H Eos % (Auto) [...] Clarity Clear Urine pH 6.0 Ur Specific [place] 1.015 Urine Protein Negative Urine Glucose (UA) [...] 13:04 EST Reading Location ID and State: [address] [place] [address] Tel , Service support , EKG Initial EKG: Comments: My independent interpretation of the patient's EKG shows atrial fibrillation with mildly tachycardic rate at 102. No ventricular ectopy. No acute ST elevation or depression. QRS duration and QTc are normal. Management Discussion w/another healthcare provider: Hospitalist Discharge Plan Dx/Rx/DC Orders Clinical Impression: Elevated troponin, New onset atrial fibrillation, Chest pressure, Influenza A Disposition Disposition: Acute Care Hospital [facility] What to do if you have Problems For any increased pain, shortness of breath, bleeding, nausea or vomiting, chestpain, or any unexpected problems, contact your Primary Care Provider. Call [facility] ([phone]) or report to the closest Emergency Room. Call 911 if necessary. 11/18/23 1508 <Electronically signed by Michele Kebede MD> Cosigner Signature (if applicable): CC: Dr. Daron Benton MD ~ Signed [facility] Work Phone: 1(243) 577-407012-31-2023 Discharge summary Author Michele Kebede [facility] November 18, 2023 3:08pm Note Date/Time November 18, 2023 12:03pm [facility] Medical Records Department [address] [place] [address] Emergency Department Summary 11/18/23 MR#: [id number] Acct: [id number] Name: ANGÉLICA YO Rep #:[id number] 0 : 1955 68 From: Michele Kebede [...] states she has never had atrial fibrillation. [facility] Medical History Angina pectoris Bilateral carotid artery [...] Stomach morphine AdvReac Nausea Verified 11/15/23 11:27 Tdeednv-ZFU-BiK Reductase AdvReac Nausea Verified 11/15/23 11:27 Inhibitor [Twtiwrs-Tjn-Iwr Reductase Inhibitor] Family History Mother Cancer CAD [...] % (Auto) 66.4 Lymph % (Auto) 19.4 [place] % (Auto) 12.9 H Eos % (Auto) [...] Clarity Clear Urine pH 6.0 Ur Specific [place] 1.015 Urine Protein Negative Urine Glucose (UA) [...] 13:04 EST Reading Location ID and State: [address] [place] [address] Tel , Service support , EKG Initial EKG: Comments: My independent interpretation of the patient's EKG shows atrial fibrillation with mildly tachycardic rate at 102. No ventricular ectopy. No acute ST elevation or depression. QRS duration and QTc are normal. Management Discussion w/another healthcare provider: Hospitalist Discharge Plan Dx/Rx/DC Orders Clinical Impression: Elevated troponin, New onset atrial fibrillation, Chest pressure, Influenza A Disposition Disposition: Acute Care Hospital [facility] What to do if you have Problems For any increased pain, shortness of breath, bleeding, nausea or vomiting, chestpain, or any unexpected problems, contact your Primary Care Provider. Call [facility] ([phone]) or report to the closest Emergency Room. Call 911 if necessary. 11/18/23 7206 <Electronically signed by Michele Kebede MD> Cosigner Signature (if applicable): CC: Dr. Daron Benton MD ~ Signed [facility] Work Phone: 1([phone]) 186-566512-28-2023 History and physical note Author Sommer Resendiz [facility] November 15, 2023 3:44pm Note Date/Time November 15, 2023 3:14pm [facility] Medical Records Department [address] [place] [address] H&P Exam - Hospitalist 11/15/23 1512 MR#: [id number] Acct: [id number] Name: ANGÉLICA YO Rep #:[id number] 3 : 1955 68 From: Sommer Resendiz MD PCP: Dr. Daron Benton MD Status:ADM IN Location: [facility] DD952-8 HPI - General General Date of Admission: 11/15/23 Date of Service: 11/15/23 Chief Complaint: Poor intake, malaise, fatigue, weakness, N/V/D HPI Narrative The patient is a 68 y/o F w/ PMHx: Hx Cerebral aneurysm, Chronic pain syndrome, HTN, HLD, Hx TIA, Multiple Sclerosis, Nonobstructive CAD, Psoriatic arthritis, PAD, NS SVT, GERD, Hypothyroidism, Carotid disease, Tobacco use who presents to the [facility] ED on 11/15/23 with history of 4 [...] x 1 and 1 L normal saline. [facility] Medical History Angina pectoris Bilateral carotid artery [...] Stomach morphine AdvReac Nausea Verified 11/15/23 11:27 Isjtgvj-UOX-KzJ Reductase AdvReac Nausea Verified 11/15/23 11:27 Inhibitor [Rxsltym-Prj-Zno Reductase Inhibitor] Family History Mother Cancer CAD [...] 70.4 H, Lymph % (Auto) 14.3 L, [place] % (Auto) 14.5 H, Eos % (Auto) [...] disease, Tobacco use who presents to the [facility] ED on 11/15/23 with history of 4 [...] 16 minutes. Charges/Coding Visit Charges Inpatient E&M: 99087 Init Hosp L3 Procedures Hospitalists Procedures: 97428 Advncd Care Plan 30 Min 11/15/23 1544 <Electronically signed by Sommer Resendiz MD> Cosigner Signature (if applicable): CC: Dr. Sommer Resendiz MD; Dr. Daron Benton MD~ Signed [facility] Work Phone: 1([phone] 884-682712-28-2023 Discharge summary Author Michele Kebede [facility] November 15, 2023 3:10pm Note Date/Time November 15, 2023 12:02pm [facility] Medical Records Department [address] [place] [address] Emergency Department Summary 11/15/23 MR#: [id number] Acct: [id number] Name: ANGÉLICA YO Rep #:[id number] 2 : 1955 68 From: Michele Kebede [...] because she cannot take the strong medications. [facility] Medical History Angina pectoris Bilateral carotid artery [...] Stomach morphine AdvReac Nausea Verified 11/15/23 11:27 Aarvfja-HGA-UnA Reductase AdvReac Nausea Verified 11/15/23 11:27 Inhibitor [Kvauyer-Uhv-Wxb Reductase Inhibitor] Family History Mother Cancer CAD [...] 70.4 H Lymph % (Auto) 14.3 L [place] % (Auto) 14.5 H Eos % (Auto) [...] ventricular ectopy. No acuteST elevation or depression. NE interval, QRS duration are normal. QTc is [...] Provider] - Disposition Disposition: Acute Care Hospital [facility] What to do if you have Problems For any increased pain, shortness of breath, bleeding, nausea or vomiting, chestpain, or any unexpected problems, contact your Primary Care Provider. Call [facility] ([phone]) or report to the closest Emergency Room. Call 911 if necessary. 11/15/23 1510 <Electronically signed by Michele Kebede MD> Cosigner Signature (if applicable): CC: Dr. Daron Benton MD ~ Signed [facility] Work Phone: 1(256) 196-308412-28-2023 Discharge summary Author Michele Kebede [facility] November 15, 2023 3:10pm Note Date/Time November 15, 2023 12:02pm [facility] Medical Records Department [address] [place] [address] Emergency Department Summary 11/15/23 MR#: [id number] Acct: [id number] Name: ANGÉLICA YO Rep #:[id number] 2 : 1955 68 From: Michele Kebede [...] because she cannot take the strong medications. [facility] Medical History Angina pectoris Bilateral carotid artery [...] Stomach morphine AdvReac Nausea Verified 11/15/23 11:27 Ecpczra-VPT-LsG Reductase AdvReac Nausea Verified 11/15/23 11:27 Inhibitor [Nqgdvra-Npo-Uvh Reductase Inhibitor] Family History Mother Cancer CAD [...] 70.4 H Lymph % (Auto) 14.3 L [place] % (Auto) 14.5 H Eos % (Auto) [...] ventricular ectopy. No acuteST elevation or depression. NE interval, QRS duration are normal. QTc is [...] Provider] - Disposition Disposition: Acute Care Hospital [facility] What to do if you have Problems For any increased pain, shortness of breath, bleeding, nausea or vomiting, chestpain, or any unexpected problems, contact your Primary Care Provider. Call [facility] ([phone]) or report to the closest Emergency Room. Call 911 if necessary. 11/15/23 1510 <Electronically signed by Michele Kebede MD> Cosigner Signature (if applicable): CC: Dr. Daron Benton MD ~ Signed [facility] Work Phone: 1(118) 938-351011-17-2023 History of Present illness Narrative* Kristopher Main MD - 10/05/2023 3:00 PM EST Images from the original note were not included. [facility] [address] [facility] [facility] [address] Dept: [phone] Dept Loc: [phone] Patient was seen today via Telehealth by [...] that they are currently in the state [facility]. If the patient is a minor,permission has [...] TSH VITAMIN B12: No results found for: WPHZQLLG02 No results found for: PHENYTOIN, PHENOBARB, VALPROATE, CBMZ No results found for: LEVETIRACETA, FERRITIN, CRP, DENNIS, ANCA FERRITIN: No results found for: FERRITIN @RESULTINGLABINFO@ No components found for: TOPIRA No results found for: CHRISTIANO, IMMUNOGLOBUL, OLIGOBANDS No results found for: ZRS20TJ, HEPCAB No results found for: CRP, ANATITER, ANCA ---- @LASTAPPOINTMENTTHISPROV@ ECG 12 lead SINUS BRADYCARDIA PROBABLE LEFT ATRIAL ABNORMALITY No previous ECG available for comparison Electronically Signed On 04-05-2023 7:42:10 EDT by Juvenal Benton Patient Name: ANGÉLICA YO : 1955 Exam Date/Time: 04/04/2023 15:32 Procedure: CT HEAD [...] volume rendered reformats were obtained using a [employer] workstation. Review of the axial source data [...] of the major intracranial arteries at the [place]. 6. No hemodynamically significant narrowing [...] and arranging for studies. documented in this encounterSCleveland Clinic Medina [id number] Telephone encounter Note* Telephone Encounter - Yanely Kwon MA - 10/05/2023 12:58 PM EST Patient has been scheduled and records are being faxed over. [id number] Miscellaneous Notes* Telephone Encounter - Yanely Kwon MA - 10/05/2023 12:58 PM EST Patient has been scheduled and records are being faxed over. * Telephone Encounter - Kristopher Main MD - 10/05/2023 12:36 PM EST Get records from [facility]. OK to add her on at 3 PM as a real or a virtual visit * Telephone Encounter - Ольга Pa - 10/05/2023 9:20 AM EST Name of caller: Angélica Contact phone number: [phone] Relationship to Patient: patient Provider: DR Main Practice: [facility] Chief Complaint/Reason for Call: pt was at [facility] yesterday for an MS attack she is asking for IV steroids order infusion. She was started at the hospital and will need additional steroids.Please advise when order placed. Best time of day caller can be reached: AM Patient advised that office/PCP has 24-48 business hours to return their call: Yes documented in this [facility]11-17-2023 Telephone encounter Note* Telephone Encounter - Kristopher Main MD - 10/05/2023 12:36 PM EST Get records from [facility]. OK to add her on at 3 PM as a real or a virtual visit [facility] [id number] Telephone encounter Note* Telephone Encounter - Ольга Pa - 10/05/2023 9:20 AM EST Name of caller: Angélica Contact phone number: [phone] Relationship to Patient: patient Provider: DR Main Practice: [facility] Chief Complaint/Reason for Call: pt was at [facility] yesterday for an MS attack she is asking for IV steroids order infusion. She was started at the hospital and will need additional steroids.Please advise when order placed. Best time of day caller can be reached: AM Patient advised that office/PCP has 24-48 business hours to return their call: Yes [facility] [id number] Telephone encounter Note* Telephone Encounter - Annalee Ram - 06/15/2023 9:41 AM EDT Medication name: baclofen (Lioresal) 20 MG tablet [[id number]] Order Details Dose: 20 mg Route: Oral [...] Original Order: baclofen (Lioresal) 20 MG tablet [[id number]] Providers Ordering and Authorizing Provider: Kristopher Main MD NEGRA #: [id number] Ordering User: Kristopher Main MD Pharmacy [id number] [address] NEGRA #: -- Date of last office visit: 04/04/23 Date of next office visit: None Date of last refill: (see medication tab): 10/05/22 Updated/Validated preferred pharmacy: Yes Patient instructed to contact the pharmacy prior to picking up the medication: Yes [facility]07-28-2023 Miscellaneous Notes* Telephone Encounter - Annalee Ram - 06/15/2023 9:41 AM EDT Medication name: baclofen (Lioresal) 20 MG tablet [[id number]] Order Details Dose: 20 mg Route: Oral [...] Original Order: baclofen (Lioresal) 20 MG tablet [[id number]] Providers Ordering and Authorizing Provider: Kristopher Main MD NEGRA #: [id number] Ordering User: Kristopher Main MD Pharmacy [id number] - [facility] [address] [address] NEGRA #: -- Date of last office visit: 04/04/23 Date of next office visit: None Date of last refill: (see medication tab): 10/05/22 Updated/Validated preferred pharmacy: Yes Patient instructed to contact the pharmacy prior to picking up the medication: Yes documented in this encounterSCleveland Clinic Medina [id number] Telephone encounter Note* Telephone Encounter - Kristopher Main MD - 06/04/2023 4:04 PM EDT Rx renewed [id number] Miscellaneous Notes* Telephone Encounter - Kristopher Main [...] up the medication: Yes documented in this encounterSCleveland Clinic Medina [id number] Telephone encounter Note* Telephone Encounter - Bina Snow - 06/04/2023 3:31 PM EDT Please advise. [facility] [id number] Telephone encounter Note* Telephone Encounter - Jeni [...] prior to picking up the medication: Yes [facility] [id number] Hospital Discharge instructions Additional Instructions 1. Do not place an Jean-Claude wrap on your foot this probably contributed to the swelling. 2. Apply ice to calf 6-10 times a day for the next 3 to 5 days[facility] Work Phone: [phone] Hospital Discharge instructions Patient Education 11/09/2022 12:48:32 [...] and water are not available, use hand electromyographic technician. ?Change your dressing as told by your [...] the contrast dye from your body. Take zuif-egp-twwpvfn and prescription medicines only as told by [...] 05/24/2006 Document Revised: 10/18/2018 Document Reviewed: 10/10/2017 Source4Style Patient Education 2020 [employer]. 11/09/2022 12:48:21 Moderate Conscious Sedation, Adult, Care [...] until you are awake and alert. Take hbjh-kcm-njmtyrk and prescription medicines only as told by [...] 08/26/2014 Document Revised: 10/18/2018 Document Reviewed: 02/24/2017 Source4Style Patient Education 2020 [employer]. Follow Up Care 10/27/2022 15:58:56 With:TYE BARNETT MD, [facility], Surgery, Vascular Surgeons Address: [facility] [address] [place] [phone] When: Unknown Comments:Follow-up as scheduled [facility] 12-22-2022 Summary of episode note Discharge Instructions Thank you for allowing [place] to assist you with your healthcare needs. The following is importantdischarge information regarding your hospital visit. What to do next Follow Up Appointments Follow Up with TYE BARNETT MD, [facility], Surgery, Vascular Surgeons When Why: Follow-up as scheduled Where: [facility] [address] [place] [phone] The Following Activity and Diet Have [...] and water are not available, use hand electromyographic technician. ? Change your dressing as told by [...] the contrast dye from your body. Take sqrq-izc-kzlgsfc and prescription medicines only as told by [...] 05/24/2006 Document Revised: 10/18/2018 Document Reviewed: 10/10/2017 Source4Style Patient Education 2020 [employer]. Moderate Conscious Sedation, Adult, Care After These [...] until you are awake and alert. Take jczq-vyc-zjgwpun and prescription medicines only as told by [...] 08/26/2014 Document Revised: 10/18/2018 Document Reviewed: 02/24/2017 ElseNaytev Patient Education 2020 Im[employer]et. Additional Information VACCINATE! IT SAVES LIVES! Members of the community who have not yet received the COVID-19 vaccine and would like to receive it can visit one of [facility] vaccine clinics. There are many vaccine clinic locations within the [facility]. For locations and available times, please visit https://[email or web address].[place].gov/. It is important to note that some COVID mobile vaccine clinics are held outdoors and may be canceled in rainy or stormy conditions. To learn more about pediatric vaccinations (ages 5-11), we invite you to visit the [facility] [facility] webpage. [email or web address]://[email or web address]/[email or web address]-[email or web address] stions.htmlTo learn more about the COVID-19 vaccine, we invite you to visit the [facility] website for a list of frequently asked questions. [email or web address]/kxgiv-Dzwllzq-Xrwbbvvvrr _Asked-Questions.pdf [place] [facility] Patient Portal Access Instructions: Stay connected with your healthcare team and access your personal medical information anytime with the [facility] Patient Portal.If you would like a full copy of your medical records, please contact the [facility] Medical Records Department, Sunday through Sunday between 8a.m. and 4:30p.m. Please follow the directions below to access the portal: 1.Access the email account you provided upon registration to the [facility].2.Look for an invitation email from [facility].3.Open the email and access the invitation link: Accept Invitation to [facility]4.Fill in the required duarte to create your account. Sign into www.Zakazaka with your username and password that you [...] you will allow to register on the [facility] Patient Portal for access to your information. You can also access the [facility] Patient Portal on the [employer] jennifer. Simply click on Health Records under [employer] and then click on the [employer] logo. HOW TO SAFELY DISPOSE OF PRESCRIPTION [...] Call your local pharmacy or go to [email or web address] to find one close to you.3.Make use of household items: Use cat litter or old coffee grounds to dispose medications if other options arenot available. Mix your drugs with these household products, seal them in an airtight container andthrow it into the garbage. Call [facility]: [phone] to be sure your drugs can be [...] reviewed and explained to me and I,ANGÉLICA YO understand my current condition and have read and understand these discharge instructions. I have received a written copy of the plan/instructions. If I have questions, I am aware that I should contact my doctor. 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 [facility] [id number] Note ORIGINAL Images acquired, not reported on this accession number.[facility] 04-12-2021 NoteHNO ID: [id number] Author: RT Sandra(Mayda) Service: ? Author Type: Claims Service Representative Type: Progress Notes Filed: 04/12/2021 2:14 PM [...] Yo DATE: April 12, 2021 TIME: 2:13 [facility]03-24-2021 NoteHNO ID: [id number] Author: Meli Gore Service: ? Author Type: [...] of wound at high risk for bone exposure.[facility]01-07-2021 History of Present illness Narrative* Tammy Cornejo), Damaris - 11/25/2020 3:10 PM EST Radiology Service [...] 25, 2020 3:08 PM documented in this encounterKettering Health Behavioral [facility] CenterConlim[facility] note Author Noa Raza [facility] November 16, 2023 10:43am Note Date/Time November 16, 2023 10:43am [facility] Medical Records Department [address] [place] [address] Counseling Note - Pharmacy 11/16/231042 MR#: [id number] Acct: [id number] Name: ANGÉLICA YO Rep #:[id number] 0 : 1955 68 From: Noa Raza PCP: Dr. Daron Benton MD Status:ADM IN Y Location: [place] [address] Pharmacy [place] Med Reconciliation Pharmacy Service has performed discharge [...] Signature (if applicable): Date CC: ~ Signed [facility] Work Phone: Consult note Author Christel Miranda [facility] November 21, 2023 11:56am Note Date/Time November 21, 2023 11 :56am [facility] Medical Records Department [address] [place] [address] Counseling Note - Pharmacy 11/21/23 1155 MR#: [id number] Acct: [id number] Name: ANGÉLICA YO Rep #:[id number] 2 : 1955 68 From: Christel Miranda PCP: Dr. Daron Benton MD Status:ADM IN Y Location: [place] [address] Pharmacy [facility] Pharmacy Service has performed discharge medication reconciliation [...] Signature (if applicable): Date CC: ~ Signed [facility] Work Phone: Consult note Author Christel Miranda [facility] February 25, 2024 4:09pm Note Date/Time February 25, 2024 4:08 pm [facility] Medical Records Department [address] [place] [address] Counseling Note - Pharmacy 02/25/24 1607 MR#: [id number] Acct: [id number] Name: ANGÉLICA YO Rep #:[id number] 2 : 1955 68 From: Christel Miranda PCP: Dr. Daron Benton MD Status:ADM [facility] Pharmacy Service has performed discharge medication reconciliation [...] Signature (if applicable): Date CC: ~ Signed [facility] Work Phone: Consult note Author Christel Miranda [facility] Note Date/Time April 22, 2025 4:00p [facility] Medical Records Department [address] [place] [address] Counseling Note - Pharmacy 04/22/25 1559 MR#: [id number] Acct: [id number] Name: ANGÉLICA YO Rep #:[id number] 8 : 1955 69 From: Christel Miranda PCP: Dr. Daron Benton MD Status:ADM IN Location: [facility] SK906-6 Pharmacy [facility] Counseling Pharmacy Service has performed discharge medication [...] Signature (if applicable): Date CC: ~ Signed [facility] Work Phone: Discharge summary Author Hi Garcia [facility] November 16, 2023 10:38am Note Date/Time November 16, 2023 10:33am [facility] Medical Records Department [address] [place] [address] Instructions for Home/Discharge Instructions 11/16/23 1032 MR#: [id number] Acct: [id number] Name: ANGÉLICA OY Rep #:[id number] 1 : 1955 68 From: Hi Llanos [...] MD; Dr. Daron Benton MD ~ Signed [facility] Work Phone: Discharge summary Author Hi Garcia [facility] November 16, 2023 10:51am Note Date/Time November 16, 2023 10:50am [facility] Medical Records Department [address] [place] [address] Discharge Summary 11/16/23 1043 MR#: [id number] Acct: [id number] Name: ANGÉLICA YO Rep #:[id number] 7 : 1955 68 From: Hi Llanos PCP: Dr. Daron Benton MD Status:ADM [facility] Prov[facility] Date of Admission: 11/15/23 Date of [...] y/o F [facility], vomiting and [facility] for [...] and hypotension: Patient is admitted in the MedSurg floor. Patient resuscitated well IV fluid normal [...] 70.4 H, Lymph % (Auto) 14.3 L, [place] % (Auto) 14.5 H, Eos % (Auto) [...] Sl. Cloudy, Urine pH 5.0, Ur Specific [place] 1.015, Urine Protein 15 H, Urine Glucose [...] Neut % (Auto) 57.7, Lymph % (Auto) 25.5,[place] % (Auto) 15.7 H, Eos % (Auto) [...] Niki Mojica MD at 13:03 EST , D/C Instructions Discharge Diet: No restrictions [...] to go home. Visit Charges Inpatient E&M: 53289 Disch Hosp >30min 11/16/23 1051 <Electronically signed by Hi Garcia MD> Cosigner Signature (if applicable): CC: Dr. Daron Benton MD; Dr. Hi Garcia MD~ Signed [facility] Work Phone: Discharge summary Author Sachin Murillo [facility] November 21, 2023 11:01am Note Date/Time November 21, 2023 11 :01am [facility] Medical Records Department [address] [place] [address] Discharge Summary 11/21/23 1057 MR#: [id number] Acct: [id number] Name: ANGÉLICA YO Rep #:[id number] 1 : 1955 68 From: Sachin chan MD PCP: Dr. Daron Benton MD Status:ADM IN Location: [place] [address] Providers Date of Admission: 11/18/23 Primary Care [...] injury associated to now represents to the [facility] ED on 11/18/23 with history of initially [...] % (Auto) 62.0, Lymph % (Auto) 14.3L, [place] % (Auto) 18.8 H, Eos % (Auto) [...] [Med Staff - Adv Practice Prof] - 12/21/23 1:00 pm Disposition Disposition (needs filled in before D/C Order can be placed): Home, Self Care Charges/Coding Visit Charges Inpatient E&M: 01464 Disch Hosp >30min 11/21/23 1101 <Electronically signed by Sachin Murillo MD> Cosigner Signature (if applicable): CC: Dr. Daron Benton MD; Dr. Sachin Murillo MD~ Signed [facility] Work Phone: Discharge summary Author Sachin Murillo [facility] December 07, 2023 2:21pm Note Date/Time December 07, 2023 2 :21pm [facility] Medical Records Department [address] [place] [address] Discharge Summary 12/07/23 1417 MR#: [id number] Acct: [id number] Name: ANGÉLICA YO Rep #:[id number] 0 : 1955 68 From: Sachin chan [...] of Tele-Neurology Consult: Yes 12/04/23 06:18 Consult: Thread Clipper / Pulmonary Medicine Routine Consulting Provider: Intensivists/Pulmonary Med Reason for Consult: Mental Status Change EMERGENT Consult: No Notified: Yes Date Notified: 12/04/23 Time Notified: [...] 71.0 H, Lymph % (Auto) 17.9 L, [place] % (Auto) 9.8, Eos % (Auto) 0.1, [...] Health Service Charges/Coding Visit Charges Inpatient E&M: 25634 Disch Hosp >30min 12/07/23 1421 <Electronically signed by Sachin Murillo MD> Cosigner Signature (if applicable): CC: Dr. Daron Benton MD; Dr. Sachin Murillo MD~ Signed [facility] Work Phone: Evaluation + Plan note No data available for this section [facility] Evaluation note* Diagnosis Onset Date Resolution Status Effusion of left knee joint acute Left knee DJD acute Psoriatic arthritis acute Chronic pain chronic Peripheral vascular occlusive disease chronic Bilateral carotid artery stenosis chronic Essential (primary) hypertension chronic Nonobstructive atherosclerosis of coronary artery chronic Peripheral vascular occlusive disease [facility] Work Phone: Evaluation note* Diagnosis Onset Date Resolution Status Peripheral vascular occlusive disease chronic Bilateral carotid artery stenosis chronic Essential (primary) hypertension chronic Nonobstructive atherosclerosis of coronary artery chronic Peripheral vascular occlusive disease chronic Bilateral carotid artery stenosis chronic Essential (primary) hypertension chronic Nonobstructive atherosclerosis of coronary artery chronic Peripheral vascular occlusive disease [facility] Work Phone: Evaluation note* Diagnosis Onset Date Resolution Status Cardiac murmur acute Bilateral carotid artery stenosis chronic Essential (primary) hypertension chronic Nonobstructive atherosclerosis of coronary artery chronic Peripheral vascular occlusive disease [facility] Work Phone: Evaluation noteNo assessment information available [facility] Work Phone: Evaluation note* Diagnosis Onset Date Resolution Status Effusion of left knee joint acute Left knee DJD acute Psoriatic arthritis acute Cardiac murmur acute [place] (dyspnea on exertion) ac curtis Bilateral carotid artery stenosis chronic Essential (primary) hypertension chronic Nonobstructive atherosclerosis of coronary artery chronic Peripheral vascular occlusive disease chronic [facility] Work Phone: Evaluation note* Diagnosis Onset Date Resolution Status Effusion of left knee joint acute Left knee DJD acute Psoriatic arthritis acute Cardiac murmur acute [place] (dyspnea on exertion) ac curtis Bilateral carotid artery stenosis chronic Essential (primary) hypertension chronic Nonobstructive atherosclerosis of coronary artery chronic Peripheral vascular occlusive disease chronic Left knee DJD acute Psoriatic arthritis acute [facility] Work Phone: Evaluation note* Diagnosis Onset Date Resolution Status Effusion of left knee joint acute Left knee DJD acute Psoriatic arthritis acute Cardiac murmur acute [place] (dyspnea on exertion) ac curtis Bilateral carotid artery stenosis chronic Essential (primary) hypertension chronic Nonobstructive atherosclerosis of coronary artery chronic Peripheral vascular occlusive disease chronic Left knee DJD acute Psoriatic arthritis acute 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 Effusion of left knee joint acute Left knee DJD acute Psoriatic arthritis acute [facility] Work Phone: Evaluation note* Diagnosis Onset Date Resolution Status Left knee DJD acute Psoriatic arthritis acute 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 Effusion of left knee joint acute Left knee DJD acute Psoriatic arthritis acute [facility] Work Phone: Evaluation note* Diagnosis Onset Date Resolution Status 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 Effusion of left knee joint acute Left knee DJD acute Psoriatic arthritis acute Intercostal neuralgia acute Thoracic back pain acute [facility] Work Phone: Evaluation note* Diagnosis Onset Date Resolution Status Effusion of left knee joint acute Left knee DJD acute Psoriatic arthritis acute Intercostal neuralgia acute Thoracic back pain acute Psoriatic arthritis acute Thoracic back pain acute Multiple sclerosis chronic [facility] Work Phone: Evaluation note* Diagnosis Multiple sclerosis (HCC) Multiple sclerosis [facility] Diagnosis Multiple sclerosis (HCC) Multiple sclerosis [facility]* Diagnosis Onset Date Resolution Status Psoriatic arthritis acute Thoracic back pain acute Multiple sclerosis chronic Bilateral carotid artery stenosis chronic Essential (primary) hypertension chronic Nonobstructive atherosclerosis of coronary artery chronic Peripheral vascular occlusive disease chronic [facility] Work Phone: Evaluation note* Diagnosis Onset Date Resolution Status Bilateral carotid artery stenosis chronic Essential (primary) hypertension chronic Nonobstructive atherosclerosis of coronary artery chronic Peripheral vascular occlusive disease chronic [facility] Work Phone: Evaluation note* Diagnosis Multiple sclerosis (HCC)- Primary Multiple sclerosis Cerebrovascular disease, unspecified Primary hypertension Unspecified essential hypertension [facility] Diagnosis Onset Date Resolution Status Knee joint effusion acute [facility] Work Phone: Evaluation note* Diagnosis Onset Date Resolution Status Knee joint effusion acute Bilateral carotid artery stenosis chronic Essential (primary) hypertension chronic Nonobstructive atherosclerosis of coronary artery chronic Peripheral vascular occlusive disease chronic Acute hyponatremia acute Acute kidney injury acute Dehydration acute Influenza A acute [facility] Work Phone: Evaluation note* Diagnosis [...] A acute New onset atrial fibrillation acute [facility] Work Phone: Evaluation note* Diagnosis Onset Date Resolution Status Knee joint effusion acute Bilateral carotid artery stenosis chronic Essential (primary) hypertension chronic Nonobstructive atherosclerosis of coronary artery chronic Peripheral vascular occlusive disease chronic Acute kidney injury acute Acute hyponatremia resolved Dehydration resolved Atrial fibrillation acute Chest pressure acute Elevated troponin acute New onset atrial fibrillation acute [facility] Work Phone: Evaluation note* Diagnosis Onset Date Resolution Status Knee joint effusion acute Bilateral carotid artery stenosis chronic Essential (primary) hypertension chronic Nonobstructive atherosclerosis of coronary artery chronic Peripheral vascular occlusive disease chronic Acute kidney injury acute Acute hyponatremia resolved Dehydration resolved Atrial fibrillation acute Chest pressure acute Elevated troponin acute New onset atrial fibrillation acute Weakness acute [facility] Work Phone: Evaluation note* Diagnosis [...] Dizziness acute Weakness acute Multiple sclerosis chronic [facility] [facility] Work Phone: evaluation note* Diagnosis Multiple sclerosis (HCC)- Primary Multiple sclerosis Dizziness Dizziness and giddiness Imbalance Abnormality of gait Vision disturbance Unspecified visual disturbance [facility] Onset Date Resolution Status Knee [...] (primary) hypertension chronic Peripheral vascular occlusive disease [facility] Work Phone: Evaluation note* Diagnosis Multiple sclerosis (HCC) [facility] Diagnosis Onset Date Resolution Status Knee [...] (primary) hypertension chronic Peripheral vascular occlusive disease [facility] Work Phone: evaluation note* Diagnosis Onset Date Resolution Status Bilateral [...] (primary) hypertension chronic Peripheral vascular occlusive disease [facility] Work Phone: evaluation note* Diagnosis Onset Date Resolution Status Acute [...] symptoms of anemia resolved Symptomatic anemia resolved [facility] Work Phone: Evaluation note* Diagnosis [facility]ough [facility] Diagnosis Other specified symptoms and signs involving the circulatory and respiratory systems- Primary Cerebrovascular disease, unspecified [facility] Diagnosis Multiple sclerosis (HCC) [facility] Diagnosis Multiple sclerosis (HCC)- Primary Multiple sclerosis Mild cognitive impairment Mild cognitive impairment, so stated Fatigue, unspecified type Deficiency of multiple nutrient elements Other nutritional deficiency [facility] Diagnosis Multiple sclerosis (HCC)- Primary Multiple sclerosis Dysphasia Other speech disturbance [facility] Author Sommer Resendiz [facility] November 15, 2023 3:44pm Note Date/Time November 15, 2023 3:14pm [facility] Medical Records Department [address] [place] [address] H&P Exam - Hospitalist 11/15/23 1512 MR#: [id number] Acct: [id number] Name: ANGÉLICA YO Rep #:[id number] 3 : 1955 68 From: Sommer Resendiz MD PCP: Dr. Daron Benton MD Status:ADM IN Location: [facility] [place] [facility] [id number] HPI - General General Date of Admission: 11/15/23 Date of Service: 11/15/23 Chief Complaint: Poor intake, malaise, fatigue, weakness, N/V/D HPI Narrative The patient is a 68 y/o F w/ PMHx: Hx Cerebral aneurysm, Chronic pain syndrome, HTN, HLD, Hx TIA, Multiple Sclerosis, Nonobstructive CAD, Psoriatic arthritis, PAD, NS SVT, GERD, Hypothyroidism, Carotid disease, Tobacco use who presents to the [facility] ED on 11/15/23 with history of 4 [...] x 1 and 1 L normal saline. [facility] Medical History Angina pectoris Bilateral carotid artery [...] Stomach morphine AdvReac Nausea Verified 11/15/23 11:27 Ehcexmn-ZUW-FnT Reductase AdvReac Nausea Verified 11/15/23 11:27 Inhibitor [Ebndoaq-Paq-Sxw Reductase Inhibitor] Family History Mother Cancer CAD [...] 70.4 H, Lymph % (Auto) 14.3 L, [place] % (Auto) 14.5 H, Eos % (Auto) [...] disease, Tobacco use who presents to the [facility] ED on 11/15/23 with history of 4 [...] 16 minutes. Charges/Coding Visit Charges Inpatient E&M: 03363 Init Hosp L3 Procedures Hospitalists Procedures: 75328 Advncd Care Plan 30 Min 11/15/23 1544 <Electronically signed by Sommer Resendiz MD> Cosigner Signature (if applicable): CC: Dr. Sommer Resendiz MD; Dr. Daron Benton MD~ Signed [facility] Work Phone: History and physical note Author Roman Mckeon [facility] December 02, 2023 11:53am Note Date/Time December 02, 2023 1 1:43am [facility] Medical Records Department [address] [place] [address] H&P Exam - Hospitalist 12/02/23 1140 MR#: [id number] Acct: [id number] Name: ANGÉLICA YO Rep #:[id number] 9 : 1955 68 From: Roman Mckeon MD PCP: Dr. Daron Benton MD Status:ADM IN Location: [facility] [place] [facility] [id number] HPI - General General Date of Admission: [...] to a monitored bed for further management [facility] Medical History Angina pectoris Bilateral carotid artery [...] Stomach morphine AdvReac Nausea Verified 11/26/23 12:47 Nruotja-DJH-GcK Reductase AdvReac Nausea Verified 11/26/23 12:47 Inhibitor [Dageybx-Hix-Nry Reductase Inhibitor] Family History Mother Cancer CAD [...] % (Auto) 56.3, Lymph % (Auto) 28.5, [place] % (Auto) 12.7 H, Eos % (Auto) [...] Clarity Clear, Urine pH 6.5, Ur Specific [place] 1.015, Urine Protein 15 H, Urine Glucose [...] 18 minutes. Charges/Coding Visit Charges Inpatient E&M: 96895 Init Hosp L3 Procedures Hospitalists Procedures: 79279 Advncd Care Plan 30 Min 12/02/23 1157 <Electronically signed by Roman Mckeon MD> Cosigner Signature (if applicable): CC: Dr. Roman Mckeon MD; Dr. Daron Benton MD~ Signed [facility] Work Phone: Hospital Discharge instructionsW[facility] Work Phone: Hospital Discharge instructionsW[facility] Work Phone: Hospital Discharge instructions Additional Instructions Please follow-up with your primary care doctor. If your pain gets worse you do not feel you can effectively take care of yourself at home please return to the emergency room. [facility] Work Phone: Hospital Discharge instructions Additional Instructions [...] any further concerns or worsening of symptoms [facility] Work Phone: Hospital Discharge instructions Additional Instructions Continue following up outpatient. You need to follow-up with your PCP, make them aware that you no longer taking her Eliquis. Return for any worsening symptoms. Chest x-ray was clear today.[facility] Work Phone: Hospital Discharge instructions Additional Instructions Labs and CAT scan today showed no significant changes in the past. No signs of acute stroke. Call and follow-up with your primary care physician if this is not improving you and he can discuss further imaging of your neck to see if you may have a pinched nerve.[facility] Work Phone: Hospital Discharge instructions Additional Instructions In 2019, Dr. 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 Make an appointment to see him as soon as possible to have this reevaluated.[facility] Work Phone: Hospital Discharge instructions Additional Instructions [...] you are at risk of getting internal bleeding.[facility] Work Phone: Hospital Discharge instructions Additional Instructions [...] any further concerns or worsening of symptoms. [facility] Work Phone: Hospital Discharge instructionsAdditional Instructions Please continue all of your home medications as directed by your doctor use the capsaicin and oxycodone to help control pain from the shingles and return to the ER should you have any further concernsWUniversity [facility]als [facility] Work Phone: Progress note Author Kevin Friend [facility] Note Date/Time April 22, 2025 5:49p m [facility] Medical Records Department [address] [place] [address] Progress Note 04/22/25 1747 MR#: [id number] Acct: [id number] Name: ANGÉLICA YO Rep #:[id number] 8 : 1955 69 From: Kevin Friend PCP: Dr. Daron Benton MD Status:ADM IN Location: [place] [id number] Progress Note Patient is doing well today. [...] for further workup Visit Charges Inpatient E&M: 84746 [facility] Hosp L3 04/22/25 1749 <Electronically signed by Kevin Gonzalez DO> Kevin Gonzalez DO Cosigner Signature (if applicable): CC: ~ Signed [facility] Work Phone: Reason for referral (narrative)* Consultation (Routine) - Pending Review Specialty Diagnoses / Procedures Referred By Hillary christie Referred To Contact Ophthalmology Diagnoses Vision disturbance Procedures NE OFFICE/OUTPATIENT [facility] 60 MINUTES Lizz Lynn APRN - CNP [address] [phone] Cecilio Gibbs MD [address] [place] [address] Referral ID Status Reason Start Date Expiration Date Visits Requested Visits Authorized [id number] Pending Review Specialty Services Required 12/14/2023 12/13/2024 1 1 * Therapy (Routine) - Pending Review Specialty Diagnoses / Procedures Referred By Hillary christie Referred To Contact Physical Therapy Diagnoses Dizziness Imbalance Procedures NE OFFICE/OUTPATIENT [facility] 60 MINUTES Lizz Lynn APRN - CNP [address] [facility] [address] [place] [id number] Referral ID Status Reason Start Date Expiration Date Visits Requested Visits Authorized [id number] Pending Review Eval and Treat 12/14/2023 06/11/2024 99 99 Scheduling Instructions Twice weekly x 4 weeks for dizziness and imbalance [facility] for [facility] (narrative)No reason for referral information availableWUniversity [facility]als [facility] Work Phone: Summary Purpose Family History No Family History Records Found Relationship Condition Age at Onset Recorded Date/T edgar mother Malignant neoplasm Unknown Coronary artery disease Unknown Intracranial tumor Unknown grandfather Cerebrovascular accident (CVA) Unknown father Coronary artery disease Unknown Ruptured abdominal aortic aneurysm (AAA) Unknown sister Cerebral aneurysm Unknown Advance Directives No Advanced Directives Records Found Advance Directive Response Recorded Date/ Time Advance Directives No January 18 8:11am Living Will No February 17, 2022 9:49pm Power of Computer Numerical Control Programmer No February 17 9:49pm Advance Directive Response Recorded Date/ Time Advance Directives No January 18 8:11am Living Will No February 18, 2022 4:14am Power of Computer Numerical Control Programmer No February 18 4:14am Advance Directive Response Recorded Date/ Time Advance Directives No January 18 8:11am Living Will No February 20, 2022 4:54pm Power of Computer Numerical Control Programmer No February 20 4:54pm Advance Directive Response Recorded Date/ Time Advance Directives No January 18 7:11am Living Will No February 20, 2022 3:54pm Power of Computer Numerical Control Programmer No February 20 3:54pm Advance Directive Response Recorded Date/ Time Advance Directives No January 18 7:11am Living Will No November 24 3 11:31pm Power of Computer Numerical Control Programmer No November 24 11:31pm Advance Directive Response Recorded Date/ Time Advance Directives No January 18 8:11am Living Will No November 25 3 12:31am Power of Computer Numerical Control Programmer No November 25 023 12:31am Advance Directive Response Recorded Date/ Time Advance Directives No January 18 8:11am Living Will No March 16, 2023 12:46pm Power of Computer Numerical Control Programmer No March 16 12:46pm Advance Directive Response Recorded Date/ Time Advance Directives No January 18 8:11am Living Will No March 31, 2023 1 2:40pm Power of Computer Numerical Control Programmer No March 31, 2023 12:40pm Advance Directive Response Recorded Date/ Time Advance Directives No January 18 8:11am Living Will No April 08, 2023 9 :22am Power of Computer Numerical Control Programmer No April 08, 2023 9:22am Advance Directive Response Recorded Date/ Time Advance Directives No January 18 7:11am Living Will No November 17th, 2 023 12:50am Power of Computer Numerical Control Programmer No October 05, 2023 12:50am Advance Directive Response Recorded Date/ Time Advance Directives No January 18 7:11am Living Will No November 15, 2 023 11:28am Power of Computer Numerical Control Programmer No November 15, 2023 11:28am Advance Directive Response Recorded Date/ Time Advance Directives No January 18 7:11am Living Will No November 15, 2 023 4:24pm Power of Computer Numerical Control Programmer No November 15, 2023 4:24pm Advance Directive Response Recorded Date/ Time Advance Directives No January 18 7:11am Living Will No November 18 2 023 11:47am Power of Computer Numerical Control Programmer No November 18, 2023 11:47am Advance Directive Response Recorded Date/ Time Advance Directives No January 18 7:11am Living Will No November 18, 023 3:44pm Power of Computer Numerical Control Programmer No November 18, 2023 3:44pm Advance Directive Response Recorded Date/ Time Advance Directives No January 18 7:11am Living Will No November 26 1:53pm Power of Computer Numerical Control Programmer No November 26 024 1:53pm Advance Directive Response Recorded Date/ Time Advance Directives No January 18 7:11am Living Will No November 27 9:06am Power of Computer Numerical Control Programmer No November 27 024 9:06am Advance Directive Response Recorded Date/ Time Advance Directives No January 18 7:11am Living Will No December 02 6:38am Power of Computer Numerical Control Programmer No December 02, 2023 6:38am Advance Directive Response Recorded Date/ Time Advance Directives No January 18 7:11am Living Will No December 02 12:37pm Power of Computer Numerical Control Programmer No December 02, 2023 12:37pm Advance Directive Response Recorded Date/ Time Advance Directives No January 18 7:11am Living Will No January 18, 2024 10:25am Power of Computer Numerical Control Programmer No January 17 10:25am Advance Directive Response Recorded Date/ Time Advance Directives No January 18 8:11am Living Will No February 19, 2024 10:57am Power of Computer Numerical Control Programmer No February 18 10:57am Advance Directive Response Recorded Date/ Time Advance Directives No January 18 8:11am Living Will No February 19, 2024 5:33pm Power of Computer Numerical Control Programmer No February 18 5:33pm Advance Directive Response Recorded Date/ Time Living Will No December 17 11:30am Do you have a Healthcare Power of Computer Numerical Control Programmer? No December 17, 2024 11:30am Do you have a Healthcare Power of Computer Numerical Control Programmer? No April 02, 2025 7:26pm Living Will No December 09 3:59pm Do you have a Healthcare Power of Computer Numerical Control Programmer? No December 09, 2024 3:59pm Living Will No January 11 025 2:51am Do you have a Healthcare Power of Computer Numerical Control Programmer? No January 11, 2025 2:51am Advance Directives No January 18 8:11am Advance Directive Response Recorded Date/ Time Do you have a Healthcare Power of Computer Numerical Control Programmer? No April 02, 2025 7:26pm Do you have a Healthcare Power of Computer Numerical Control Programmer? No April 11, 2025 1:19pm Living Will No January 11 025 2:51am Do you have a Healthcare Power of Computer Numerical Control Programmer? No January 11, 2025 2:51am Do you have a Healthcare Power of Computer Numerical Control Programmer? No April 17, 2025 10:20pm Advance Directives No January 18 8:11am Advance Directive Response Recorded Date/ Time Do you have a Healthcare Power of Computer Numerical Control Programmer? No April 02, 2025 7:26pm Do you have a Healthcare Power of Computer Numerical Control Programmer? No April 11, 2025 1:19pm Do you have a Healthcare Power of Computer Numerical Control Programmer? No April 18, 2025 6:43pm Living Will No January 11 025 2:51am Do you have a Healthcare Power of Computer Numerical Control Programmer? No January 11, 2025 2:51am Do you have a Healthcare Power of Computer Numerical Control Programmer? No April 17, 2025 10:20pm Advance Directives No January 18 8:11am Advance Directive Response Recorded Date/ Time Do you have a Healthcare Power of Computer Numerical Control Programmer? No April 02, 2025 7:26pm Do you have a Healthcare Power of Computer Numerical Control Programmer? No April 11, 2025 1:19pm Do you have a Healthcare Power of Computer Numerical Control Programmer? No April 18, 2025 9:53pm Living Will No January 11 2:51am Do you have a Healthcare Power of Computer Numerical Control Programmer? No January 11, 2025 2:51am Do you have a Healthcare Power of Computer Numerical Control Programmer? No April 17, 2025 10:20pm Advance Directives No January 18 8:11am Advance Directive Response Recorded Date/ Time Do you have a Healthcare Power of Computer Numerical Control Programmer? No April 02, 2025 7:26pm Do you have a Healthcare Power of Computer Numerical Control Programmer? No April 11, 2025 1:19pm Do you have a Healthcare Power of Computer Numerical Control Programmer? No April 18, 2025 9:53pm Do you have a Healthcare Power of Computer Numerical Control Programmer? No April 17, 2025 10:20pm Advance Directives No January 18 8:11am Advance Directive Response Recorded Date/ Time Do you have a Healthcare Power of Computer Numerical Control Programmer? No April 02, 2025 7:26pm Do you have a Healthcare Power of Computer Numerical Control Programmer? No April 11, 2025 1:19pm Do you have a Healthcare Power of Computer Numerical Control Programmer? No April 18, 2025 9:53pm Do you have a Healthcare Power of Computer Numerical Control Programmer? No May 19, 2025 10:27pm Do you have a Healthcare Power of Computer Numerical Control Programmer? No April 17, 2025 10:20pm Advance Directives [...] MED CHECK-IN INFLUENZA A, CHRISTOPHER INFLUENZA A, CHRISOTPHER PAF NEW ONSET, ? GI BLEED, RECENT [...] Weakness Weakness Weakness Weakness Weakness Weakness S/P [facility] 11/21/23 DIZZINESS,IMBALANCE/RX HERE fall Reason for Visit [...] Weakness Weakness Weakness Weakness Weakness Weakness S/P [facility] 11/21/23 DIZZINESS,IMBALANCE/RX HERE fall FALL, HEAD INJURY [...] Weakness Weakness Weakness Weakness Weakness Weakness S/P [facility] 11/21/23 DIZZINESS,IMBALANCE/RX HERE fall FALL, HEAD INJURY [...] Weakness Weakness Weakness Weakness Weakness Weakness S/P [facility] 11/21/23 DIZZINESS,IMBALANCE/RX HERE fall FALL, HEAD INJURY [...] Weakness Weakness Weakness Weakness Weakness Weakness S/P [facility] 11/21/23 DIZZINESS,IMBALANCE/RX HERE fall FALL, HEAD INJURY [...] pain December 17, 2024 1 0:12am S/P [facility] 12/11December 19, 2024 1 :16pm 3 M [...] 2024 1:16pm PAF (paroxysmal atrial fibrillation) Gerald brucery 2024 1:16pm Peripheral vascular occlusive disease Ja nuary 2024 1:16pm 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 F ebruary 2024 1:52pm Hypoxemia December 24, 2024 1 :52pm Emphysema of lung December 24, 2024 1 :52pm Nicotine dependence, cigarettes, uncompl icated December 24, 2024 1:52pm Smoking greater than 30 pack years 2024 1:52pm Atherosclerotic heart diseas e of [place] coronary artery without angina pectoris January 10, [...] 11:45pm Smoking greater than 30 pack years u vince 2024 11:45pm Mitral stenosis February 20, 2025 1:14 pm NSTEMI (non-ST elevated myocardial infar ction) February 20, 2025 1:14pm Bilateral carotid artery stenosis February 20, 2025 1:14pm Essential (primary) hypertension February 202024 1:14pm PAF (paroxysmal atrial fibrillation) Apr 2024 1:14pm Peripheral vascular occlusive disease Ap ril 2024 1:14pm Chief Complaint Admit Date S/P [facility] 12/11December 19, 2024 1 :16pm 3 M [...] 2024 1 :16pm Bilateral carotid artery stenosis Randyr josé miguel 2024 1:16pm Essential (primary) hypertension December 19, 2024 1:16pm PAF (paroxysmal atrial fibrillation) Gerald zavala 2024 1:16pm Peripheral vascular occlusive disease Ja jay jay 2024 1:16pm Bujjx-3-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 F ebruary 2024 1:52pm Hypoxemia December 24, 2024 1 :52pm Emphysema of lung December 24, 2024 1 :52pm Nicotine dependence, cigarettes, uncompl icated December 24, 2024 1:52pm Smoking greater than 30 pack years Febru vince 2024 1:52pm Atherosclerotic heart diseas e of [place] coronary artery without angina pectoris January 10, 2025 11:45pm Brain aneurysm January 10, 2025 11:45pm Cardiac murmur January 10, 2025 11:45pm TOLEDO (dyspnea on exertion) January 10, 2025 11:45pm Elevated troponin January 10, 2025 11:45pm Emphysema of lung January 10, 2025 11:45pm Hypertensive emergency February 22nd, 20 25 11:45pm New onset atrial fibrillation December 212024 [...] 2024 1:14pm Chief Complaint Admit Date S/P [facility] 12/11December 19, 2024 1 :16pm 3 M [...] vascular occlusive disease Javan goyal 2024 1:16pm Jpoez-0-vkxjcfojidr deficiency carrier F ebruary 2024 1:52pm Hypoxemia December 24, 2024 1 :52pm Emphysema of lung December 24, 2024 1 :52pm Nicotine dependence, cigarettes, uncompl icated December 24, 2024 1:52pm Smoking greater than 30 pack years 2024 1:52pm Atherosclerotic heart diseas e of [place] coronary artery without angina pectoris January 10, [...] 11:45pm Smoking greater than 30 pack years 2024 11:45pm Mitral stenosis February 20, 2025 [...] symptoms of anemia April 18, 2 025 9:19pm 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 cardiac monito [...] 12:30 pm Reason for Visit Admit Date Jnwqy-8-fkbhqyjyaib deficiency carrier F ebruary 2024 1:52pm Hypoxemia December 24, 2024 1 :52pm Emphysema of lung December 24, 2024 1 :52pm Nicotine dependence, cigarettes, uncompl icated December 24, 2024 1:52pm Smoking greater than 30 pack years 2024 1:52pm Atherosclerotic heart diseas e of [place] coronary artery without angina pectoris January 10, [...] Admit Date Atherosclerotic heart diseas e of [place] coronary artery without angina pectoris January 10, [...] Signs and symptoms of anemia April 18, 9:20pm 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 cardiac monito r April 18, 2025 9:20pm Symptomatic anemia April 18, 2025 9:20p m Anemia May 06, 2025 2:10 pm Constipation May 06, 2025 2:10 pm Chief Complaint Admit Date 3 M FU [...] CAROTID STENOSIS/ ADD LABS May 15 12:11pm SHINGLES May 19, 2025 8:45p m Chief Complaint Admit Date 3 M [...] CAROTID STENOSIS/ ADD LABS May 15 12:11pm SHINGLES May 19, 2025 8:45p m MENTAL STATUS CHANGE, UNKNOWN CAUSE May 20, 2025 12:09pm Reason for Referral Specialty Diagnoses / Procedures Referred By Hillary t Referred To Contact Cardiology Diagnoses Other specified symptoms and signs involving the circulatory and respiratory systems Cerebrovascular disease, unspecified Procedures Vascular US carotid artery duplex bilateral Kristopher Main MD [address] [place] [address] Referral ID Status Reason Start Date Expiration Date Visits Requested Visits Authorized [id number] Pending Review Perform Procedure 2 03/02/2023 1 1 Additional Source Comments INFORMATION SOURCE (unrecogn ized section and content) DATE CREATED AUTHOR 05/13/2018 [facility] DATE CREATED AUTHOR AUTHOR'S ORGANIZ ATION 05/13/2018 [facility] DATE CREATED AUTHOR AUTHOR'S ORGANIZ ATION 12/13/2021 [facility] DATE CREATED AUTHOR AUTHOR'S ORGANIZ ATION 01/16/2024 [facility] ([place]) DATE CREATED AUTHOR AUTHOR'S ORGANIZ ATION 05/08/2025 [facility] DATE CREATED AUTHOR AUTHOR'S ORGANIZ ATION 05/30/2025 [facility] Goals (unrecognized section and content) Goals [...] Persons Name: BHAVIK HONG Name: LOLA HONG Care Teams (unrecognized sec [...] Primary Care Provider, Attending P rovider Active Tow Operator Relationship Specialty Start Date End Date Daron Benton [address] [facility] [address] [place] [id number] PCP - General 06/23/20 Tow Operator Relationship Specialty Start Date End Date Daron Benton [address] [facility] [address] [place] [address] PCP - General 06/23/20 Tow Operator Relationship Specialty Start Date End Date Daron Benton [address] [facility] [address] [place] [address] PCP - General 06/23/20 Team Status: Inactive [...] Dr. Yasmani Haynes DO Emergency Provider Active Tow Operator Relationship Specialty Start Date End Date Benton Daron Santos [address] [place] [address] PCP - General 06/23/20 Team Status: Inactive [...] MD Primary Care Provider Active Dr. Gabriella Godman , DO Emergency Provider Active Dr. Roman Mckeon MD Admit Provider, Other Provider A ctive Kt Friend MD Other Provider Active Dr. Ruby Wynn MD Other Provider Active Angie Shields MD Other Provider Active Dr. Jo Ann Krishnamurthy , DO Other Provider Active Dr. Kiley Carpenter [...] Dr. Samina Mortensen MD Other Provider Active Kyeona Davidson MD Other Provider Active Dr. Sachin [...] Mckeon MD Admit Provider, Other Provider A ctlluvia Friend MD Other Provider Active Dr. Ruby [...] Ruby Wynn MD Other Provider Active Dr. Kilye Carpenter MD Other Provider Active Arleen Estrada [...] Ann Krishnamurthy DO Other Provider Active Dr. Johnny Sepulveda MD [...] Ann Krishnamurthy DO Other Provider Active Dr. Johnny Sepulveda MD [...] Active Keyona Davidson MD Other Provider Active Tow Operator Relationship Specialty Start Date End Date Daron Benton [address] [facility] [address] [place] [phone] PCP - General 06/23/20 Team Status: Active [...] MD Other Provider Active Dr. Jorge Hurtado DO Attending Provider, Other Provide r Active Dr. [...] Daron Benton MD Primary Care Provider, Attending Hudson gee Active Team Status: Active Member Role Status [...] Provider, Other Provider Active Dr. Kevin Gonzalez DO Attending Provider Active Team Status: Active Member Role Status Dates Dr. Daron Benton MD Primary Care Provider Active Dr. Kevin Gonzalez DO Attending Provider Active Dr. Roman Mckeon MD Referring Provider Active Team Status: Active Member Role Status Dates Dr. Daron Benton MD Primary Care Provider Active Dr. Kevin Friend , DO Attending Provider Active Dr. Eva Mortensen , Referring Provider Active Team Status: Active Member Role Status Dates Dr. Daron Benton MD Primary Care Provider Active Dr. Bhavik Smiley MD Attending Provider Active Dr. Roman Mckeon MD Referring Provider Active Team Status: Active Member Role Status Dates Dr. Daron Benton MD Primary Care Provider Active Dr. Bhavik Smiley MD Attending Provider, Referring Provider Active Tow Operator Relationship Specialty Start Date End Date Daron Benton MD [address] [place], [place] [address] PCP - General Family Medicine 03/12/19 Tye Barnett MD [address] [facility] [address] [place] [address] Vascular Surgery 12/22/17 Tow Operator Relationship Specialty Start Date End Date Daron Benton [address] [facility] [address] [place] [phone] PCP - General 06/23/20 Tow Operator Relationship Specialty Start Date End Date Daron Benton [address] [facility] [address] [place] [address] PCP - General 06/23/20 Tow Operator Relationship Specialty Start Date End Date Daron Benton [address] [facility] [address] [place] [address] PCP - General 06/23/20 Tow Operator Relationship Specialty Start Date End Date Daron Benton [address] [facility] [address] [place] [phone] PCP - General 06/23/20 Team Status: Active [...] Star t: January 13, 2025 Dr. Dex Tereletsky , DO Attending Provider Active Start: January 13, [...] April 02, 2025 End: April 02, 2025 Tow Operator Relationship Specialty Start Date End Date Daron Benton [address] [place] [address] PCP - General 06/23/20 Team Status: Inactive [...] Provider Active Start: April 18, 2025 Dr. Jfefy Willoughby MD Emergency Provider Active Sta rt: [...] May 06, 2025 End: May 06, 2025 Tow Operator Relationship Specialty Start Date End Date Daron Benton [address] [place] [phone] PCP - General 06/23/20 Team Status: Active [...] Active Sta rt: April 21, 2025 Dr. Scahin Murillo MD Admit Provider Active Start: April 21, 2025 Dr. Sachin Murillo MD Referring Provider Active Start: April 21, 2025 Dr. Sachin Murillo MD Other Provider Active Start: April 21, 2025 Dr. Roman Mckeon MD Other Provider Active Star t: April 21, 2025 Dr. Kevin Gonzalez DO Attending Provider Active Start: April 21, 2025 Team Status: Active Member Role/Relationship Status Dates Dr. aDron Benton MD Primary Care Provider Active Start: [...] May 15, 2025 End: May 15, 2025 Team Status: Inactive Member Role/Relationship Status Dates Dr. Daron Benton MD Primary Care Provider Active Start: May 19, 2025 End: May 19, 2025 Dr. Yasmani Haynes DO Emergency Provider Active Start: May 19, 2025 End: May 19, 2025 Team Status: Inactive Member Role/Relationship Status Dates Dr. Daron Benton MD Primary Care Provider Active Start: May 20, 2025 End: May 20, 2025 STEPHANY Harrington Attending Provider Active Start: May 20, 2025 End: May 20, 2025 STEPHANY Harrington Referring Provider Active Start: May 20, 2025 End: May 20, 2025 Reason for Visit (unrecogniz ed section [...] or prosecute any alcohol or drug abuse patient.[facility] FOR RECORDS PERTAINING TO PATIENTS WHO ARE [...] BE BASED ON THE PRIMARY CLINICAL RECORDS. [facility] [employer] [facility]. provides no warranty or guarantee of the accuracy or completeness of information in this document.
[2025-06-03 03:08] LABS: Hematocrit 18.0 % (37-47); Immature Granulocytes Count 0.060 X10^3/uL (0.0-0.0); Mean Corp Hgb Conc 28.9 g/dL (32-36); Mean Corpuscular Volume 78.9 fL (81-99); Mean Platelet Vol. 10.6 fl (6.2-12.0); NRBC Flagged by Analyzer 3.9 % (0-5); POSITIVE COUNT YES; POSITIVE MORPHOLOGY YES; Platelet Count 181 K/mm3 (150-450); RBC Distribution Width CV 20.2 % (11.6-14.6); RBC Distribution Width SD 58.9 fl (35.1-43.9); Red Blood Count 2.28 M/mm3 (4.2-5.4); White Blood Count 7.6 K/mm3 (4.4-11.0)
[2025-06-03] MEDS: Furosemide 20 MG/2 ML VIAL IV (03:09)
[2025-06-03 03:11] LABS: Differential Indicated SCAN CRITERIA MET; Hemoglobin 5.2 g/dL (12.0-15.0)
--- NOTE | 2025-06-03 03:20 | RAD_ITS ---
PROCEDURE: CHEST 1 VIEW (PORTABLE) 06/03/2025 REASON FOR EXAM: DYSPNEA TECHNIQUE: Frontal view of the chest. COMPARISON: 04/17/2025 FINDINGS: Scoliosis. Borderline heart size. Small right-sided effusion. No consolidation, large effusion or pneumothorax. Surgical clips base of neck. RAD/Chest 1 View (Portable) IMPRESSION: Small right effusion. Reading Location: [place] [id number]
[2025-06-03 03:31] LABS: AST(SGOT) 37 U/L (<=31); Alanine Aminotransfer ALT/SGPT 95 U/L (<=34); Albumin, Serum 3.7 g/dL (3.4-4.8); Alkaline Phosphatase 113 U/L (35-104); Anion Gap 14 (5-15); BUN 23 mg/dL (4-19); BUN/Creat Ratio 21.6 RATIO (10-20); Bilirubin, Direct 0.25 mg/dL (0.00-0.30); Calcium,Total 8.1 mg/dL (7.6-11.0); Carbon Dioxide 20.9 mmol/L (21.0-32.0); Chloride 101 mmol/L (98-108); Estimated Creatinine Clearance 38.46 ml/min (50-250); Globulin 2.0 g/dL (2.2-4.2); Glucose 116 mg/dL (70-99); Magnesium 2.1 mg/dL (1.5-2.2); Potassium 3.7 mmol/L (3.3-5.1); Pro- Brain NATRIURETIC PEPTIDE 6776 pg/mL (<=900)
[2025-06-03 03:41] LABS: Anisocytosis RARE; Red Cell Morphology N CYTIC NORMAL (NORM C&C)
--- NOTE | 2025-06-03 07:30 | EX.ED.DYSGE1 ---
HPI History of Present Illness Chief Complaint: Edema Informant: patient Narrative Narrative: Patient is a 69-year-old female with past medical history of paroxysmal atrial fibrillation currently on Eliquis as well as recent GI bleed requiring cauterization of intestinal ulcers and acute blood loss anemia. She has a history of congestive heart failure and chronic pain. She states that she has noticed increased swelling to her legs and feet over the last few days. Today she took her normal pain medication but did not have any improvement of the pain in her feet from the increased swelling and as she could not sleep because of the persistent pain comes in for evaluation. [facility] Medical History Hypertensive emergency NSTEMI, initial episode of care Emphysema of lung Smoking greater than 30 pack years New onset atrial fibrillation [place] (dyspnea on exertion) Atherosclerotic heart disease of [place] coronary artery without angina pectoris Cardiac murmur Elevated troponin Mitral stenosis Chronic low back pain Diastolic hypertension Chest pain Nicotine dependence, cigarettes, uncomplicated Elevated troponin Depression On home oxygen therapy Atrial fibrillation PAF (paroxysmal atrial fibrillation) Atrial fibrillation Hypothyroidism Smoker Coronary artery disease TIA (transient ischemic attack) Influenza A Nonsustained paroxysmal supraventricular tachycardia Multiple sclerosis Nonobstructive atherosclerosis of coronary artery Peripheral vascular occlusive disease Essential (primary) hypertension Bilateral carotid artery stenosis History of transient ischemic attack (TIA) Fatty liver Thrombocytopenia GERD (gastroesophageal reflux disease) Psoriatic arthritis Psoriasis Osteoporosis Osteoarthritis Goiter Multiple sclerosis HLD (hyperlipidemia) Angina pectoris Chronic pain syndrome Home Medications ?Medication ?Instructions ?Recorded ?Last Taken ?Type gabapentin 800 mg tablet 800 mg PO TID MS 07/16/18 03/19/25 History baclofen 20 mg tablet 20 mg PO Q6H MS 08/11/21 03/19/25 History levothyroxine 50 mcg tablet 50 mcg PO DAILY thyroid 08/11/21 04/21/25 History oxycodone 10 mg tablet 10 mg PO Q6H PRN pain 05/24/23 12/01/23 History dextromethorphan-guaifenesin ER 60 1 tab PO Q12H PRN cough/congest 02/19/24 03/19/25 History mg-1,200 mg tab,extend release,12hr (Mucinex DM) famotidine 40 mg tablet 40 mg PO QDAY PRN indigestion 11/24/24 03/19/25 History aspirin 81 mg tablet,delayed 81 mg PO BREAKFAST heart health 12/11/24 03/19/25 Rx release #30 tabs carvedilol 3.125 mg tablet 3.125 mg PO BIDCM heart #180 tabs 03/03/25 04/21/25 Rx apixaban 5 mg tablet (Eliquis) 5 mg PO Q12H anticoagulation #180 03/09/25 03/19/25 Rx tabs cholecalciferol (vitamin D3) 125 125 mcg PO DAILY supplement 04/18/25 Unknown History mcg (5,000 unit) capsule docusate sodium 100 mg capsule 100 mg PO BID stool softener 7 04/18/25 Unknown Rx (Colace) days #14 caps doxepin 10 mg/mL oral concentrate 5 - 10 mg PO QHS 04/18/25 Unknown History naloxegol 25 mg tablet (Movantik) 25 mg PO DAILY 30 days #30 tabs 04/18/25 Unknown Rx rosuvastatin 10 mg tablet 10 mg PO QHS hld 04/18/25 Unknown History pantoprazole 40 mg tablet,delayed 40 mg PO DAILY 90 days #90 tabs 04/22/25 Unknown Rx release (Protonix) polysaccharide iron complex 150 mg 150 mg PO DAILY 90 days #90 caps 04/22/25 Unknown Rx iron capsule (Ferrex) potassium chloride 20 mEq/15 mL 20 meq (15 mL) PO DAILY 30 days 04/22/25 Unknown Rx oral liquid #450 mL amlodipine 2.5 mg tablet 2.5 mg PO QDAY 05/13/25 Unknown History lisinopril 10 mg tablet 10 mg PO QDAY blood pressure 05/13/25 Unknown History capsaicin 0.1 % topical cream 1 applic topical TID #60 grams 05/19/25 Unknown Rx misoprostol 100 mcg tablet PO 05/19/25 Unknown History oxycodone 5 mg tablet 5 mg PO Q6H PRN pain 3 days #12 05/19/25 Unknown Rx tabs Allergy/AdvReac Type Severity Reaction Status Date / Time colestipol (From Colestid) Allergy Mild unknown Verified 06/03/25 02:30 pregabalin (From Lyrica) Allergy Mild Hives Verified 06/03/25 02:30 amitriptyline Allergy Rash Verified 06/03/25 02:30 temazepam (From Restoril) AdvReac Mild Nausea/Vom/ Verified 06/03/25 02:30 Diarrhea Antihistamines - Alkylamine AdvReac Nausea/Vom/ Verified 06/03/25 02:30 Diarrhea Antihistamines - Ethanolamine AdvReac Nausea/Vom/ Verified 06/03/25 02:30 Diarrhea Antihistamines - AdvReac Nausea/Vom/ Verified 06/03/25 02:30 Ethylenediamine Diarrhea Antihistamines - Piperazine AdvReac Nausea/Vom/ Verified 06/03/25 02:30 Diarrhea Antihistamines - Piperidine AdvReac Nausea/Vom/ Verified 06/03/25 02:30 Diarrhea aspirin AdvReac I'M ON Verified 06/03/25 02:30 BLOOD THINNERS codeine AdvReac Nausea Verified 06/03/25 02:30 Corticosteroids AdvReac Upset Verified 06/03/25 02:30 (Glucocorticoids) Stomach morphine AdvReac Nausea Verified 06/03/25 02:30 Knswtpo-[id number]-QaT Reductase AdvReac Nausea Verified 06/03/25 02:30 Inhibitor (Snxlokc-Ytl-Dpp Reductase Inhibitor) Family History Mother Cancer CAD (coronary artery disease) Brain tumor Grandfather CVA (cerebral vascular accident) Father CAD (coronary artery disease) Ruptured abdominal aortic aneurysm (AAA) Sister Brain aneurysm Surgical History History of coronary artery stent placement History of appendectomy History of cholecystectomy History of angioplasty of peripheral vessel (07/11/19) Stenosis of left subclavian artery History of left heart catheterization (01/25/15) S/P coil embolization of cerebral aneurysm History of angioplasty of peripheral vessel History of right-sided carotid endarterectomy History of left-sided carotid endarterectomy History of partial thyroidectomy (11/30/05) History of hemorrhoidectomy History of hysterectomy History of section Brain aneurysm Fracture of right lower leg S/P insertion of iliac artery stent History of left breast biopsy H/O hemorrhoidectomy S/P hysterectomy H/O: S/P thyroidectomy Social History household members: none housing: apartment Smoking Status: Current every day smoker tobacco type: cigarettes alcohol intake: never caffeine: Yes Type: coffee and tea ROS ROS ED Constitutional Constitutional ED: Denies chills or fever(s) Eyes Eyes: Denies blurry vision or change in vision ENT ENT ED: Denies sore throat Cardiovascular Cardiovascular: Reports other Details: Negative syncope ; Denies chest pain or palpitations Respiratory/Chest Respiratory/Chest: Denies cough or dyspnea Gastrointestinal Gastrointestinal: Denies abdominal pain, diarrhea, melena, nausea or vomiting Genitourinary Genitourinary ED: Denies hematuria Musculoskeletal Musculoskeletal: Reports back pain and other Details: Positive foot pain and foot/leg swelling Patient reports back pain is chronic in nature Integumentary Denies rash Neurologic Neurologic: Denies headache(s) Hematologic/Lymphatic Hematologic/Lymphatic: Reports easy bleeding and easy bruising EXAM Physical Exam Const Vital Signs: 06/03/25 02:30 06/03/25 02:30 06/03/25 02:33 Temperature 98.4 F 98.4 F Temperature Source Oral Oral Pulse Rate 79 78 Respiratory Rate 16 16 Respiratory Effort Normal Respiratory Pattern Normal Blood Pressure 133/77 H 133/77 H Blood Pressure Mean 95 95 Blood Pressure Source Blood Pressure Position Blood Pressure Location Pulse Ox 100 100 Oxygen Delivery Method Room Air Room Air Oxygen Flow Rate (L/min) 06/03/25 03:33 06/03/25 04:00 06/03/25 04:34 Temperature 98.4 F 98.9 F 98.5 F Temperature Source Oral Oral Oral Pulse Rate 74 83 70 Respiratory Rate 16 18 12 Respiratory Effort Respiratory Pattern Blood Pressure 115/68 112/58 L 107/56 L Blood Pressure Mean 83 76 73 Blood Pressure Source Monitor Blood Pressure Position Supine Blood Pressure Location Left Arm Pulse Ox 98 94 95 Oxygen Delivery Method Room Air Room Air Room Air Oxygen Flow Rate (L/min) 06/03/25 04:40 06/03/25 04:40 06/03/25 04:49 Temperature 97.7 F L Temperature Source Oral Pulse Rate 67 Respiratory Rate 12 Respiratory Effort Respiratory Pattern Blood Pressure 125/57 H Blood Pressure Mean 79 Blood Pressure Source Monitor Blood Pressure Position Supine Blood Pressure Location Right Arm Pulse Ox 88 95 100 Oxygen Delivery Method Room Air Nasal Cannula Nasal Cannula Oxygen Flow Rate (L/min) 3 3 06/03/25 04:49 06/03/25 05:00 06/03/25 05:49 Temperature 97.7 F L 97.7 F L 96 F L Temperature Source Oral Oral Axillary Pulse Rate 67 71 66 Respiratory Rate 12 17 12 Respiratory Effort Respiratory Pattern Blood Pressure 125/57 H 95/73 130/69 H Blood Pressure Mean 79 80 89 Blood Pressure Source Monitor Monitor Blood Pressure Position Supine Supine Blood Pressure Location Right Arm Right Arm Pulse Ox 100 100 98 Oxygen Delivery Method Nasal Cannula Nasal Cannula Nasal Cannula Oxygen Flow Rate (L/min) 3 3 3 06/03/25 06:00 06/03/25 06:49 06/03/25 06:49 Temperature 96 F L 97.6 F L 97.6 F L Temperature Source Axillary Oral Oral Pulse Rate 70 93 100 Respiratory Rate 16 16 16 Respiratory Effort Respiratory Pattern Blood Pressure 133/62 H 127/71 H 108/75 Blood Pressure Mean 85 89 86 Blood Pressure Source Monitor Monitor Blood Pressure Position Supine Supine Blood Pressure Location Right Arm Right Arm Pulse Ox 98 96 95 Oxygen Delivery Method Room Air Nasal Cannula Nasal Cannula Oxygen Flow Rate (L/min) 3 3 06/03/25 07:22 06/03/25 07:37 06/03/25 07:37 Temperature 97.6 F L 98.2 F 98.2 F Temperature Source Oral Oral Oral Pulse Rate 100 86 93 Respiratory Rate 16 18 16 Respiratory Effort Respiratory Pattern Blood Pressure 108/75 103/62 103/62 Blood Pressure Mean 86 75 75 Blood Pressure Source Monitor Monitor Monitor Blood Pressure Position Supine Supine Supine Blood Pressure Location Right Arm Right Arm Right Arm Pulse Ox 100 100 100 Oxygen Delivery Method Nasal Cannula Nasal Cannula Nasal Cannula Oxygen Flow Rate (L/min) 3 3 3 06/03/25 07:38 Temperature 98.2 F Temperature Source Pulse Rate 93 Respiratory Rate 16 Respiratory Effort Respiratory Pattern Blood Pressure 103/62 Blood Pressure Mean 75 Blood Pressure Source Blood Pressure Position Blood Pressure Location Pulse Ox 100 Oxygen Delivery Method Oxygen Flow Rate (L/min) Positive well nourished and well developed General Appearance ED: well developed and pallor HEENT HEENT Narrative: Normocephalic atraumatic No tongue or lip swelling no oral lesions no airway edema or compromise; no signs of infection noted in the posterior pharynx Eyes PERRL and EOMs intact bilaterally Eyes Narrative: Positive subconjunctival pallor noted General Eye ED: Yes pale conjunctiva; Negative for scleral icterus Neck supple Neck Narrative: Bilateral JVD is present Resp normal respiratory effort Resp Narrative: Breath sounds are diminished throughout with faint rhonchi in the bilateral bases but no nasal flaring retractions tachypnea or accessory muscle use Cardio regular rate and regular rhythm GI non-tender, non-distended and no masses GI Narrative: Soft nontender nondistended with hypoactive bowel sounds. No voluntary guarding or rigidity or pulsatile mass. No fluid wave noted Auscultation: hypoactive bowel sounds Palpation: soft Narrative: Rectal exam displays no external hemorrhoids or anal fissure. Rectal tone is normal. Stool is dark brown in color and Hemoccult negative Extremity Extremity Narrative: Patient has +1-2 pitting edema of the bilateral lower extremities that is equal and symmetric. However there is +3 in the dorsal aspect of the bilateral feet. Bilateral lower extremities are neurovascularly intact Neuro oriented x3, CN's II-XII intact bilaterally and no sensory deficits noted Sensorium / Orientation: alert Motor Exam: strength 5/5 throughout Psych mental status grossly normal Skin no rashes or lesions noted Skin Narrative: Skin is pale in color and cap refill is less than 3 seconds General Skin Exam: pallor; Negative for jaundice MDM MDM MDM Narrative Medical decision making narrative: Patient presented to the ER with stable vitals and reported difficulty sleeping secondary to increased pain from leg swelling. She denies any history of cirrhosis and does have a history of CHF and therefore the increased swelling could be due to CHF exacerbation or potential third spacing due to low protein or albumin levels. In order to assess for worsening CHF or protein or albumin levels as a cause of her increased swelling basic labs were obtained. The laboratory studies show that her hemoglobin is now 5.2. Chart review reveals that she was admitted to the hospital at the end of March/early April secondary to anemia with a hemoglobin of 6.3 at that time. She underwent a colonoscopy which displayed diverticulosis and a few ulcers which were cauterized. She also has findings consistent with iron deficiency anemia and reportedly is on iron medication. The patient denies any blood in his urine or stool. At this time she is hemodynamically stable and rectal exam shows no sign of blood. However because of the anemia worsening over the month of April as it went from 10.1-9.4-7.2-5.2 she was given 2 units of blood. The case was discussed with butcherette/Dr. Gonzalez. He states that with her anemia and Eliquis use that he recommend she come in for an EGD as that was not performed at the last admission as well as iron transfusion as this is a potential cause for her persistent symptoms. Case was also discussed with the hospitalist who agrees to accept the patient for continued care History & Record Review Discussion w/independent historian: Patient Lab Data Attestation: I reviewed the patient's lab results. Labs: Laboratory Results - last 24 hr 06/03/25 06/03/25 02:34 03:20 WBC 7.6 RBC 2.28 L Hgb 5.2 L* Hct 18.0 L MCV 78.9 L MCH 22.8 L MCHC 28.9 L RDW Std Deviation 58.9 H RDW Coeff of David 20.2 H Plt Count 181 MPV 10.6 Immature Gran % (Auto) 0.800 Neut % (Auto) 69.4 Lymph % (Auto) 13.4 L [place] % (Auto) 14.0 H Eos % (Auto) 2.0 Baso % (Auto) 0.4 Absolute Neuts (auto) 5.3 Absolute Lymphs (auto) 1.02 Nucleated RBC % 3.9 RBC Morphology N CYTIC Anisocytosis RARE Stomatocytes 1+ Sodium 136 Potassium 3.7 Chloride 101 Carbon Dioxide 20.9 L Anion Gap 14 BUN 23 H Creatinine 1.07 Estim Creat Clear Calc 38.46 L Est GFR (MDRD) Non-Af 56 L BUN/Creatinine Ratio 21.6 H Glucose 116 H Calcium 8.1 Magnesium 2.1 Total Bilirubin 0.47 Direct Bilirubin 0.25 AST 37 H ALT 95 H Alkaline Phosphatase 113 H NT pro BNP II 6776 H Total Protein 5.7 L Albumin 3.7 Globulin 2.0 L Blood Type O POSITIVE Antibody Screen NEGATIVE Crossmatch See Detail Radiography Diagnostic Testing: Clinical Impression(s) from Imaging Studies Chest X-Ray 06/03/25 03:20 IMPRESSION: Small right effusion. Reading Location: [facility]- Chest x-ray is interpreted by the emergency medicine physician reveals a small right pleural effusion without acute infiltrate or pneumothorax Management Discussion w/another healthcare provider: Hospitalist and Road Mixer Operator Discharge Plan Triage Chief Complaint: Edema ED Provider: Yasmani Haynes Dx/Rx/DC Orders Clinical Impression: Anemia, Congestive heart failure, Paroxysmal atrial fibrillation, Current use of correction anticoagulation Prescriptions: No Action gabapentin 800 mg tablet 800 mg PO TID baclofen 20 mg tablet 20 mg PO Q6H levothyroxine 50 mcg tablet 50 mcg PO DAILY Patient Comments: take 1 tablet by mouth once daily oxycodone 10 mg tablet 10 mg PO Q6H PRN Patient Comments: take 1 tab q6 PRN for pain famotidine 40 mg tablet 40 mg PO QDAY PRN (Reason: indigestion) dextromethorphan-guaifenesin [Mucinex DM] 60-1,200 mg tablet extended release 12 hr 1 tab PO Q12H PRN (Reason: cough/congest) doxepin 10 mg/mL concentrate 5 - 10 mg PO QHS cholecalciferol (vitamin D3) 125 mcg (5,000 unit) capsule 125 mcg PO DAILY rosuvastatin 10 mg tablet 10 mg PO QHS polysaccharide iron complex [Ferrex 150] 150 mg iron Capsule 150 mg PO DAILY 90 Days Qty: 90 0RF potassium chloride 20 mEq/15 mL Liquid 20 meq PO DAILY 30 Days Qty: 450 0RF pantoprazole [Protonix] 40 mg tablet,delayed release (DR/EC) 40 mg PO DAILY 90 Days Qty: 90 0RF misoprostol 100 mcg tablet PO oxycodone 5 mg tablet 5 mg PO Q6H PRN (Reason: pain) 3 Days Qty: 12 0RF capsaicin 0.1 % cream 1 applic topical TID Qty: 60 0RF Rx Instructions: do not wash area for at least 30 min after application aspirin 81 mg Tablet,Delayed Release (Dr/Ec) 81 mg PO BREAKFAST Qty: 30 2RF docusate sodium [Colace] 100 mg capsule 100 mg PO BID 7 Days Qty: 14 0RF Movantik 25 mg tablet 25 mg PO DAILY 30 Days Qty: 30 0RF Rx Instructions: must be taken on empty stomach; no food 1 hr after or 2-3 hrs before dose carvedilol 3.125 mg tablet 3.125 mg PO BIDCM Qty: 180 3RF Eliquis 5 mg tablet 5 mg PO Q12H Qty: 180 3RF amlodipine 2.5 mg tablet 2.5 mg PO QDAY lisinopril 10 mg tablet 10 mg PO QDAY Primary Care Provider: Daron Benton Referrals: Daron Benton MD [Primary Care Provider] - Print Language: [place] Disposition Disposition: Acute Care Hospital [facility]
--- NOTE | 2025-06-03 07:39 | HP.PCM.HOS_ITS ---
HPI - General HPI Narrative ADY WALLER, is a 69 F who presents [facility] Medical History Hypertensive emergency NSTEMI, initial episode of care Emphysema of lung Smoking greater than 30 pack years New onset atrial fibrillation [place] (dyspnea on exertion) Atherosclerotic heart disease of [place] coronary artery without angina pectoris Cardiac murmur Elevated troponin Mitral stenosis Chronic low back pain Diastolic hypertension Chest pain Nicotine dependence, cigarettes, uncomplicated Elevated troponin Depression On home oxygen therapy Atrial fibrillation PAF (paroxysmal atrial fibrillation) Atrial fibrillation Hypothyroidism Smoker Coronary artery disease TIA (transient ischemic attack) Influenza A Nonsustained paroxysmal supraventricular tachycardia Multiple sclerosis Nonobstructive atherosclerosis of coronary artery Peripheral vascular occlusive disease Essential (primary) hypertension Bilateral carotid artery stenosis History of transient ischemic attack (TIA) Fatty liver Thrombocytopenia GERD (gastroesophageal reflux disease) Psoriatic arthritis Psoriasis Osteoporosis Osteoarthritis Goiter Multiple sclerosis HLD (hyperlipidemia) Angina pectoris Chronic pain syndrome Home Medications ?Medication ?Instructions ?Recorded ?Last Taken ?Type gabapentin 800 mg tablet 800 mg PO TID MS 07/16/18 History baclofen 20 mg tablet 20 mg PO Q6H MS 08/11/2112/13 History levothyroxine 50 mcg tablet 50 mcg PO DAILY thyroid 04/21/25 History oxycodone 10 mg tablet 10 mg PO Q6H PRN pain 12/01/23 History dextromethorphan-guaifenesin ER 60 1 tab PO Q12H PRN c ough/congest 02/19/24 03/19/25 History mg-1,200 mg tab,extend release,12hr (Mucinex DM) famotidine 40 mg tablet 40 mg PO QDAY PRN indigestio n 11/24/24 03/19/25 History aspirin 81 mg tablet,delayed 81 mg PO BREAKFAST heart health 12/11/24 03/19/25 Rx release #30 tabs carvedilol 3.125 mg tablet 3.125 mg PO BIDCM heart #18 0 tabs 03/03/25 04/21/25 Rx apixaban 5 mg tablet (Eliquis) 5 mg PO Q12H anticoagul ation #180 03/09/25 03/19/25 Rx tabs cholecalciferol (vitamin D3) 125 125 mcg PO DAILY supp lement 04/18/25 Unknown History mcg (5,000 unit) capsule docusate sodium 100 mg capsule 100 mg PO BID stool sof tener 7 04/18/25 Unknown Rx (Colace) days #14 caps doxepin 10 mg/mL oral concentrate 5 - 10 mg PO QHS Unknown History naloxegol 25 mg tablet (Movantik) 25 mg PO DAILY 30 da ys #30 tabs 04/18/25 Unknown Rx rosuvastatin 10 mg tablet 10 mg PO QHS hld 04/18/25 Un known History pantoprazole 40 mg tablet,delayed 40 mg PO DAILY 90 da ys #90 tabs 04/22/25 Unknown Rx release (Protonix) polysaccharide iron complex 150 mg 150 mg PO DAILY 90 days #90 caps 04/22/25 Unknown Rx iron capsule (Ferrex) potassium chloride 20 mEq/15 mL 20 meq (15 mL) PO JANE Y 30 days 04/22/25 Unknown Rx oral liquid #450 mL amlodipine 2.5 mg tablet 2.5 mg PO QDAY 05/13/25 Unkn own History lisinopril 10 mg tablet 10 mg PO QDAY blood pressure 05/13/25 Unknown History capsaicin 0.1 % topical cream 1 applic topical TID #60 grams 05/19/25 Unknown Rx misoprostol 100 mcg tablet PO 05/19/25 Unknown History oxycodone 5 mg tablet 5 mg PO Q6H PRN pain 3 days #12 05/19/25 Unknown Rx tabs Allergy/AdvReac Type Severity Reaction Status Date / Time colestipol (From Colestid) Allergy Mild unknown Verified 06/03/25 02:30 pregabalin (From Lyrica) Allergy Mild Hives Verified 06/03/25 02:30 amitriptyline Allergy Rash Verified 06/03/25 02:30 temazepam (From Restoril) AdvReac Mild Nausea/Vom/ Verified 06/03/25 02:30 Diarrhea Antihistamines - Alkylamine AdvReac Nausea/Vom/ Verified 06/03/25 02:30 Diarrhea Antihistamines - Ethanolamine AdvReac Nausea/Vom/ Verified 06/03/25 02:30 Diarrhea Antihistamines - AdvReac Nausea/Vom/ Verified 06/03/25 02:30 Ethylenediamine Diarrhea Antihistamines - Piperazine AdvReac Nausea/Vom/ Verified 06/03/25 02:30 Diarrhea Antihistamines - Piperidine AdvReac Nausea/Vom/ Verified 06/03/25 02:30 Diarrhea aspirin AdvReac I'M ON Verified 06/03/25 02:30 BLOOD THINNERS codeine AdvReac Nausea Verified 06/03/25 02:30 Corticosteroids AdvReac Upset Verified 06/03/25 02:30 (Glucocorticoids) Stomach morphine AdvReac Nausea Verified 06/03/25 02:30 [id number] Reductase AdvReac Nausea Verified 06/03/25 02:30 Inhibitor ([id number]-Hlb Reductase Inhibitor) Family History Mother Cancer CAD (coronary artery disease) Brain tumor Grandfather CVA (cerebral vascular accident) Father CAD (coronary artery disease) Ruptured abdominal aortic aneurysm (AAA) Sister Brain aneurysm Surgical History History of coronary artery stent placement History of appendectomy History of cholecystectomy History of angioplasty of peripheral vessel (07/11/19) Stenosis of left subclavian artery History of left heart catheterization (01/25/15) S/P coil embolization of cerebral aneurysm History of angioplasty of peripheral vessel History of right-sided carotid endarterectomy History of left-sided carotid endarterectomy History of partial thyroidectomy (11/30/05) History of hemorrhoidectomy History of hysterectomy History of section Brain aneurysm Fracture of right lower leg S/P insertion of iliac artery stent History of left breast biopsy H/O hemorrhoidectomy S/P hysterectomy H/O: S/P thyroidectomy Social History household members: none housing: apartment Smoking Status: Current every day smoker tobacco type: cigarettes alcohol intake: never caffeine: Yes Type: coffee and tea Vital Signs Vital Signs Vital Signs: 06/03/25 02:30 06/03/25 02:30 06/03/25 02:33 Temperature 98.4 F 98.4 F Temperature Source Oral Oral Pulse Rate 79 78 Respiratory Rate 16 16 Respiratory Effort Normal Respiratory Pattern Normal Blood Pressure 133/77 H 133/77 H Blood Pressure Mean 95 95 Blood Pressure Source Blood Pressure Position Blood Pressure Location Pulse Ox 100 100 Oxygen Delivery Method Room Air Room Air Oxygen Flow Rate (L/min) 06/03/25 03:33 06/03/25 04:00 06/03/25 04:34 Temperature 98.4 F 98.9 F 98.5 F Temperature Source Oral Oral Oral Pulse Rate 74 83 70 Respiratory Rate 16 18 12 Respiratory Effort Respiratory Pattern Blood Pressure 115/68 112/58 L 107/56 L Blood Pressure Mean 83 76 73 Blood Pressure Source Monitor Blood Pressure Position Supine Blood Pressure Location Left Arm Pulse Ox 98 94 95 Oxygen Delivery Method Room Air Room Air Room Air Oxygen Flow Rate (L/min) 06/03/25 04:40 06/03/25 04:40 06/03/25 04:49 Temperature 97.7 F L Temperature Source Oral Pulse Rate 67 Respiratory Rate 12 Respiratory Effort Respiratory Pattern Blood Pressure 125/57 H Blood Pressure Mean 79 Blood Pressure Source Monitor Blood Pressure Position Supine Blood Pressure Location Right Arm Pulse Ox 88 95 100 Oxygen Delivery Method Room Air Nasal Cannula Nasal Cannula Oxygen Flow Rate (L/min) 3 3 06/03/25 04:49 06/03/25 05:00 06/03/25 05:49 Temperature 97.7 F L 97.7 F L 96 F L Temperature Source Oral Oral Axillary Pulse Rate 67 71 66 Respiratory Rate 12 17 12 Respiratory Effort Respiratory Pattern Blood Pressure 125/57 H 95/73 130/69 H Blood Pressure Mean 79 80 89 Blood Pressure Source Monitor Monitor Blood Pressure Position Supine Supine Blood Pressure Location Right Arm Right Arm Pulse Ox 100 100 98 Oxygen Delivery Method Nasal Cannula Nasal Cannula Nasal Cannula Oxygen Flow Rate (L/min) 3 3 3 06/03/25 06:00 06/03/25 06:49 06/03/25 06:49 Temperature 96 F L 97.6 F L 97.6 F L Temperature Source Axillary Oral Oral Pulse Rate 70 93 100 Respiratory Rate 16 16 16 Respiratory Effort Respiratory Pattern Blood Pressure 133/62 H 127/71 H 108/75 Blood Pressure Mean 85 89 86 Blood Pressure Source Monitor Monitor Blood Pressure Position Supine Supine Blood Pressure Location Right Arm Right Arm Pulse Ox 98 96 95 Oxygen Delivery Method Room Air Nasal Cannula Nasal Cannula Oxygen Flow Rate (L/min) 3 3 06/03/25 07:22 06/03/25 07:37 06/03/25 07:37 Temperature 97.6 F L 98.2 F 98.2 F Temperature Source Oral Oral Oral Pulse Rate 100 86 93 Respiratory Rate 16 18 16 Respiratory Effort Respiratory Pattern Blood Pressure 108/75 103/62 103/62 Blood Pressure Mean 86 75 75 Blood Pressure Source Monitor Monitor Monitor Blood Pressure Position Supine Supine Supine Blood Pressure Location Right Arm Right Arm Right Arm Pulse Ox 100 100 100 Oxygen Delivery Method Nasal Cannula Nasal Cannula Nasal Cannula Oxygen Flow Rate (L/min) 3 3 3 06/03/25 07:38 Temperature 98.2 F Temperature Source Pulse Rate 93 Respiratory Rate 16 Respiratory Effort Respiratory Pattern Blood Pressure 103/62 Blood Pressure Mean 75 Blood Pressure Source Blood Pressure Position Blood Pressure Location Pulse Ox 100 Oxygen Delivery Method Oxygen Flow Rate (L/min) Weight Weight: 49.8 kg Body Mass Index (BMI) 17.7 Results Lab / Micro Data 06/03/25 02:34 06/03/25 02:34 Labs: Laboratory Results - last 24 hr 06/03/25 02:34: WBC 7.6, RBC 2.28 L, Hgb 5.2 L*, Hct 18.0 L, MCV 78.9 L, MCH 22.8 L, MCHC 28.9 L, RDW Std Deviation 58.9 H, RDW Coeff of David 20.2 H, Plt Count 181, MPV 10.6, Immature Gran % (Auto) 0.800, Neut % (Auto) 69.4, Lymph % (Auto) 13.4 L, [place] % (Auto) 14.0 H, Eos % (Auto) 2.0, Baso % (Auto) 0.4, Absolute Neuts (auto) 5.3, Absolute Lymphs (auto) 1.02, Nucleated RBC % 3.9, RBC Morphology N CYTIC, Anisocytosis RARE, Stomatocytes 1+, Sodium 136, Potassium 3.7, Chloride 101, Carbon Dioxide 20.9 L, Anion Gap 14, BUN 23 H, Creatinine 1.07, Estim Creat Clear Calc 38.46 L, Est GFR (MDRD) Non-Af 56 L, BUN/Creatinine Ratio 21.6 H, Glucose 116 H, Calcium 8.1, Magnesium 2.1, Total Bilirubin 0.47, Direct Bilirubin 0.25, AST 37 H, ALT 95 H, Alkaline Phosphatase 113 H, NT pro BNP II 6776 H, Total Protein 5.7 L, Albumin 3.7, Globulin 2.0 L 06/03/25 03:20: Blood Type O POSITIVE, Antibody Screen NEGATIVE, Crossmatch See Detail Micro: Microbiology 06/03/25 03:39 Stool Stool Occult Blood ([facility]) - Final Imaging Radiology Impression Chest X-Ray 06/03/25 03:20 IMPRESSION: Small right effusion. Reading Location: [place] [id number]
--- NOTE | 2025-06-03 07:39 | PCM.HP.STD ---
[facility] - General General Date of Admission: 06/03/25 Date of Service: 06/03/25 Chief Complaint: Bilateral lower extremities swelling HPI Narrative ADY WALLER, is a 69 F with recent admission on 04/22/2025 with symptomatic anemia underwent EGD was found to have multiple nonbleeding angiodysplastic lesions treated with heater probe, paroxysmal A-fib on systemic anticoagulation with apixaban who presented to the emergency department with swelling involving both lower extremities. Patient did notice increasing swelling involving both lower extremities 3 days prior to her admission. She also did complain of feeling tired. In view of the persistence of her symptoms presented to the emergency department. Hemoglobin on admission was found to be 5.2. Chest x-ray demonstrated small right effusion. An assessment of acute symptomatic anemia with suspected congestive heart failure made admitted to a monitored bed for further manage [facility] Medical History (Updated 06/03/25 @ 09:01 by Chelita Yeager) Hypertensive emergency NSTEMI, initial episode of care Mitral stenosis On home oxygen therapy Atrial fibrillation Chronic low back pain Diastolic hypertension Elevated troponin Chest pain PAF (paroxysmal atrial fibrillation) Emphysema of lung Smoking greater than 30 pack years Nicotine dependence, cigarettes, uncomplicated New onset atrial fibrillation Elevated troponin Atrial fibrillation Hypothyroidism Smoker Coronary artery disease TIA (transient ischemic attack) Influenza A [place] (dyspnea on exertion) Atherosclerotic heart disease of [place] coronary artery without angina pectoris Cardiac murmur Nonsustained paroxysmal supraventricular tachycardia Multiple sclerosis Nonobstructive atherosclerosis of coronary artery Peripheral vascular occlusive disease Essential (primary) hypertension Bilateral carotid artery stenosis History of transient ischemic attack (TIA) Fatty liver Thrombocytopenia GERD (gastroesophageal reflux disease) Psoriatic arthritis Psoriasis Osteoporosis Osteoarthritis Goiter Multiple sclerosis HLD (hyperlipidemia) Angina pectoris Chronic pain syndrome Home Medications ?Medication ?Instructions ?Recorded ?Last Taken ?Type gabapentin 800 mg tablet 800 mg PO TID MS 07/16/18 03/19/25 History baclofen 20 mg tablet 20 mg PO Q6H MS 08/11/21 03/19/25 History levothyroxine 50 mcg tablet 50 mcg PO DAILY thyroid 08/11/21 04/21/25 History oxycodone 10 mg tablet 10 mg PO Q6H PRN pain 05/24/23 12/01/23 History dextromethorphan-guaifenesin ER 60 1 tab PO Q12H PRN cough/congest 02/19/24 03/19/25 History mg-1,200 mg tab,extend release,12hr (Mucinex DM) famotidine 40 mg tablet 40 mg PO QDAY PRN indigestion 11/24/24 03/19/25 History aspirin 81 mg tablet,delayed 81 mg PO BREAKFAST heart health 12/11/24 03/19/25 Rx release #30 tabs carvedilol 3.125 mg tablet 3.125 mg PO BIDCM heart #180 tabs 03/03/25 04/21/25 Rx apixaban 5 mg tablet (Eliquis) 5 mg PO Q12H anticoagulation #180 03/09/25 03/19/25 Rx tabs cholecalciferol (vitamin D3) 125 125 mcg PO DAILY supplement 04/18/25 Unknown History mcg (5,000 unit) capsule docusate sodium 100 mg capsule 100 mg PO BID stool softener 7 04/18/25 Unknown Rx (Colace) days #14 caps doxepin 10 mg/mL oral concentrate 5 - 10 mg PO QHS 04/18/25 Unknown History naloxegol 25 mg tablet (Movantik) 25 mg PO DAILY 30 days #30 tabs 04/18/25 Unknown Rx rosuvastatin 10 mg tablet 10 mg PO QHS hld 04/18/25 Unknown History pantoprazole 40 mg tablet,delayed 40 mg PO DAILY 90 days #90 tabs 04/22/25 Unknown Rx release (Protonix) polysaccharide iron complex 150 mg 150 mg PO DAILY 90 days #90 caps 04/22/25 Unknown Rx iron capsule (Ferrex) potassium chloride 20 mEq/15 mL 20 meq (15 mL) PO DAILY 30 days 04/22/25 Unknown Rx oral liquid #450 mL amlodipine 2.5 mg tablet 2.5 mg PO QDAY 05/13/25 Unknown History lisinopril 10 mg tablet 10 mg PO QDAY blood pressure 05/13/25 Unknown History capsaicin 0.1 % topical cream 1 applic topical TID #60 grams 05/19/25 Unknown Rx misoprostol 100 mcg tablet PO 05/19/25 Unknown History oxycodone 5 mg tablet 5 mg PO Q6H PRN pain 3 days #12 05/19/25 Unknown Rx tabs Allergy/AdvReac Type Severity Reaction Status Date / Time colestipol (From Colestid) Allergy Mild unknown Verified 06/03/25 02:30 pregabalin (From Lyrica) Allergy Mild Hives Verified 06/03/25 02:30 amitriptyline Allergy Rash Verified 06/03/25 02:30 temazepam (From Restoril) AdvReac Mild Nausea/Vom/ Verified 06/03/25 02:30 Diarrhea Antihistamines - Alkylamine AdvReac Nausea/Vom/ Verified 06/03/25 02:30 Diarrhea Antihistamines - Ethanolamine AdvReac Nausea/Vom/ Verified 06/03/25 02:30 Diarrhea Antihistamines - AdvReac Nausea/Vom/ Verified 06/03/25 02:30 Ethylenediamine Diarrhea Antihistamines - Piperazine AdvReac Nausea/Vom/ Verified 06/03/25 02:30 Diarrhea Antihistamines - Piperidine AdvReac Nausea/Vom/ Verified 06/03/25 02:30 Diarrhea aspirin AdvReac I'M ON Verified 06/03/25 02:30 BLOOD THINNERS codeine AdvReac Nausea Verified 06/03/25 02:30 Corticosteroids AdvReac Upset Verified 06/03/25 02:30 (Glucocorticoids) Stomach morphine AdvReac Nausea Verified 06/03/25 02:30 [id number] Reductase AdvReac Nausea Verified 06/03/25 02:30 Inhibitor (Qrzprgs-Skh-Pri Reductase Inhibitor) Family History Mother Cancer CAD (coronary artery disease) Brain tumor Grandfather CVA (cerebral vascular accident) Father CAD (coronary artery disease) Ruptured abdominal aortic aneurysm (AAA) Sister Brain aneurysm Surgical History History of coronary artery stent placement History of appendectomy History of cholecystectomy History of angioplasty of peripheral vessel (07/11/19) Stenosis of left subclavian artery History of left heart catheterization (01/25/15) S/P coil embolization of cerebral aneurysm History of angioplasty of peripheral vessel History of right-sided carotid endarterectomy History of left-sided carotid endarterectomy History of partial thyroidectomy (11/30/05) History of hemorrhoidectomy History of hysterectomy History of section Brain aneurysm Fracture of right lower leg S/P insertion of iliac artery stent History of left breast biopsy H/O hemorrhoidectomy S/P hysterectomy H/O: S/P thyroidectomy Social History household members: none housing: apartment Smoking Status: Current every day smoker tobacco type: cigarettes alcohol intake: never caffeine: Yes Type: coffee and tea ROS ROS Narrative GENERAL: denies fever, chills, night sweats, weight loss, anorexia HEENT: denies headache, sinus congestion, or drainage, dysphagia RESPIRATORY: denies cough, sputum production, shortness of breath, CARDIAC: denies chest pain, palpitations, orthopnea, PND GASTROINTESTINAL: denies abdominal pain, nausea, vomiting, melena, GENITOURINARY: denies dysuria, urgency, frequency, heamaturia EXTREMITY: denies swelling MUSCULOSKELETAL: denies current joint pain or tenderness NEUROLOGIC: denies focal numbness, weakness, tingling HEMATOLOGIC: denies easy bruising and/or hemorrhage INTEGUMENT: denies rashes PSYCHIATRIC: denies suicidal or homicidal ideation Vital Signs Vital Signs Vital Signs: 06/03/25 02:30 06/03/25 02:30 06/03/25 02:33 Temperature 98.4 F 98.4 F Temperature Source Oral Oral Pulse Rate 79 78 Respiratory Rate 16 16 Respiratory Effort Normal Respiratory Pattern Normal Blood Pressure 133/77 H 133/77 H Blood Pressure Mean 95 95 Blood Pressure Source Blood Pressure Position Blood Pressure Location Pulse Ox 100 100 Oxygen Delivery Method Room Air Room Air Oxygen Flow Rate (L/min) 06/03/25 03:33 06/03/25 04:00 06/03/25 04:34 Temperature 98.4 F 98.9 F 98.5 F Temperature Source Oral Oral Oral Pulse Rate 74 83 70 Respiratory Rate 16 18 12 Respiratory Effort Respiratory Pattern Blood Pressure 115/68 112/58 L 107/56 L Blood Pressure Mean 83 76 73 Blood Pressure Source Monitor Blood Pressure Position Supine Blood Pressure Location Left Arm Pulse Ox 98 94 95 Oxygen Delivery Method Room Air Room Air Room Air Oxygen Flow Rate (L/min) 06/03/25 04:40 06/03/25 04:40 06/03/25 04:49 Temperature 97.7 F L Temperature Source Oral Pulse Rate 67 Respiratory Rate 12 Respiratory Effort Respiratory Pattern Blood Pressure 125/57 H Blood Pressure Mean 79 Blood Pressure Source Monitor Blood Pressure Position Supine Blood Pressure Location Right Arm Pulse Ox 88 95 100 Oxygen Delivery Method Room Air Nasal Cannula Nasal Cannula Oxygen Flow Rate (L/min) 3 3 06/03/25 04:49 07/16/25 05:00 06/03/25 05:49 Temperature 97.7 F L 97.7 F L 96 F L Temperature Source Oral Oral Axillary Pulse Rate 67 71 66 Respiratory Rate 12 17 12 Respiratory Effort Respiratory Pattern Blood Pressure 125/57 H 95/73 130/69 H Blood Pressure Mean 79 80 89 Blood Pressure Source Monitor Monitor Blood Pressure Position Supine Supine Blood Pressure Location Right Arm Right Arm Pulse Ox 100 100 98 Oxygen Delivery Method Nasal Cannula Nasal Cannula Nasal Cannula Oxygen Flow Rate (L/min) 3 3 3 06/03/25 06:00 06/03/25 06:49 06/03/25 06:49 Temperature 96 F L 97.6 F L 97.6 F L Temperature Source Axillary Oral Oral Pulse Rate 70 93 100 Respiratory Rate 16 16 16 Respiratory Effort Respiratory Pattern Blood Pressure 133/62 H 127/71 H 108/75 Blood Pressure Mean 85 89 86 Blood Pressure Source Monitor Monitor Blood Pressure Position Supine Supine Blood Pressure Location Right Arm Right Arm Pulse Ox 98 96 95 Oxygen Delivery Method Room Air Nasal Cannula Nasal Cannula Oxygen Flow Rate (L/min) 3 3 06/03/25 07:22 06/03/25 07:37 06/03/25 07:37 Temperature 97.6 F L 98.2 F 98.2 F Temperature Source Oral Oral Oral Pulse Rate 100 86 93 Respiratory Rate 16 18 16 Respiratory Effort Respiratory Pattern Blood Pressure 108/75 103/62 103/62 Blood Pressure Mean 86 75 75 Blood Pressure Source Monitor Monitor Monitor Blood Pressure Position Supine Supine Supine Blood Pressure Location Right Arm Right Arm Right Arm Pulse Ox 100 100 100 Oxygen Delivery Method Nasal Cannula Nasal Cannula Nasal Cannula Oxygen Flow Rate (L/min) 3 3 3 06/03/25 07:38 Temperature 98.2 F Temperature Source Pulse Rate 93 Respiratory Rate 16 Respiratory Effort Respiratory Pattern Blood Pressure 103/62 Blood Pressure Mean 75 Blood Pressure Source Blood Pressure Position Blood Pressure Location Pulse Ox 100 Oxygen Delivery Method Oxygen Flow Rate (L/min) Weight Weight: 49.8 kg Body Mass Index (BMI) 17.7 Physical Exam Narrative ENERAL: cooperative HEENT: Atraumatic; normocephalic EYES; Anicteric, pallor of the conjunctiva NECK; supple, normal thyroid, RESPIRATORY: Diminished to auscultation CARDIOVASCULAR: Regular S1 S2, GI: soft, normoactive bowel sounds, : No Renal angle tenderness; EXTREMITIES: No edema, no clubbing, MUSCULOSKELETAL: no muscle wasting NEURO: Awake; no lateralizing signs. SKIN: No Rash PSYCH; Flat affect Results Lab / Micro Data 06/03/25 08:44 06/03/25 02:34 Labs: Laboratory Results - last 24 hr 06/03/25 02:34: WBC 7.6, RBC 2.28 L, Hgb 5.2 L*, Hct 18.0 L, MCV 78.9 L, MCH 22.8 L, MCHC 28.9 L, RDW Std Deviation 58.9 H, RDW Coeff of David 20.2 H, Plt Count 181, MPV 10.6, Immature Gran % (Auto) 0.800, Neut % (Auto) 69.4, Lymph % (Auto) 13.4 L, [place] % (Auto) 14.0 H, Eos % (Auto) 2.0, Baso % (Auto) 0.4, Absolute Neuts (auto) 5.3, Absolute Lymphs (auto) 1.02, Nucleated RBC % 3.9, RBC Morphology N CYTIC, Anisocytosis RARE, Stomatocytes 1+, Sodium 136, Potassium 3.7, Chloride 101, Carbon Dioxide 20.9 L, Anion Gap 14, BUN 23 H, Creatinine 1.07, Estim Creat Clear Calc 38.46 L, Est GFR (MDRD) Non-Af 56 L, BUN/Creatinine Ratio 21.6 H, Glucose 116 H, Calcium 8.1, Magnesium 2.1, Total Bilirubin 0.47, Direct Bilirubin 0.25, AST 37 H, ALT 95 H, Alkaline Phosphatase 113 H, NT pro BNP II 6776 H, Total Protein 5.7 L, Albumin 3.7, Globulin 2.0 L 06/03/25 03:20: Blood Type O POSITIVE, Antibody Screen NEGATIVE, Crossmatch See Detail Micro: Microbiology 06/03/25 03:39 Stool Stool Occult Blood ([facility]) - Final Imaging Radiology Impression Chest X-Ray 06/03/25 03:20 IMPRESSION: Small right effusion. Reading Location: [place] [id number] Assessment & Plan Assessment/Plan (1) Anemia: (2) Congestive heart failure: PLAN: Plan Patient is a 69-year-old lady who presented with swelling involving both lower extremities found to have hemoglobin of 5.2 1. Acute congestive heart failure ? Unspecified at this point, possibly preceded by patient's severe anemia. Patient has been admitted to monitored bed placed on strict input and output, daily weights, fluid restriction IV furosemide and echo ordered for EF assessment 2. Acute symptomatic anemia ? Patient hemoglobin on admission was 5.2. 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 Treated with a heater probe. Colonoscopy revealed One 10 mm polyp at the splenic flexure, removed with a hot snare. Resected and retrieved. - Diverticulosis in the recto-sigmoid colon, in the sigmoid colon, in the descending colon and in the ascending colon. - A few ulcers in the rectum. Biopsied. An order was given for patient to be transfused with 2 unit PRBC. Admitted to monitored bed consultation placed to Dr. Gonzalez with GI from the emergency department. Patient was kept n.p.o. pending repeat endoscopic evaluation 3. Paroxysmal A-fib ? Rate controlled on systemic anticoagulation with apixaban held given her presentation. Patient apixaban has been held for a week following her admission after her GI bleed. Given the recurrent nature of symptoms patient may not be a good candidate for systemic anticoagulation 4. Hypertension - Blood pressure controlled, home medications continued with dose adjustment as needed 5. Hypothyroidism ? Patient is on levothyroxine did continue with home dose 6. Peripheral arterial disease ? With history of bilateral carotid artery stenosis, peripheral vascular occlusive disease. Patient was on systemic anticoagulation with apixaban held given about reasons 7. Dyslipidemia ?Patient is on statin therapy, continued at home dose 8. Multiple sclerosis ? Complicating patient's care patient is on baclofen for muscle relaxation 9. Chronic pain syndrome ? Restarted patient home pain regimen 10. DVT prophylaxis ? Patient is on apixaban held given his GI bleed Time spent in the patient's overall evaluation,decision-making process, review of diagnostic data, adjustment of management, discussion with other providers, nursing nursing and ancillary staff involved in patient's care documentation 75 Minutes Advance planning; did discuss with the patient and family regarding advanced directives as well as CODE STATUS. Did explain the various scenarios involved ( FULL CODE, DNR CCA, DNR CCA with no intubation, and DNR CC and what each meant) patient elected to remain full code. Order was placed. Time spent on discussion 18 minutes. Charges/Coding Multi Select Codes Visit Charges Visit Charges: 04453 Init Hosp L3 Hospitalists' Procedures Procedures: 50334 Advncd Care Plan 30 Min
[2025-06-03] MEDS: 0.9% Saline Lock 10 ML Syringe IV ×2 (11:01→22:45)
[2025-06-03] MEDS: Pantoprazole Sodium 40 MG in 0.9% Normal Saline (100mL MB+) 100 ML 300 MG IV ×2 (11:08→22:58)
[2025-06-03 12:30] LABS: Hematocrit 25.2 % (37-47); Hemoglobin 7.8 g/dL (12.0-15.0)
--- NOTE | 2025-06-03 16:09 | EX.PCM.CON.G ---
HPI Consult Data Date of Consult: 06/03/25 HPI Narrative Reason for Consultation: Anemia HPI Narrative: ADY WALLER, is a 69 F who presents to the ED with worsening fatigue and weakness. I saw her back in the beginning of April for similar presentation. Her hemoglobin was 7.3 on admission and dropped down to 6.3. She was transfused 1 unit of packed red blood cells. 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 She underwent a colonoscopy and was discovered to have small adenomatous polyps that were removed with biopsy and 2 of the angiodysplastic lesions that were treated endoscopically. Her current hemoglobin was down to 5.5. She has been admitted for blood and iron transfusions for iron deficiency anemia possibly secondary to recurrent GI bleeding in the setting of a patient on aspirin and Eliquis there is currently still smoking and history of CAD and carotid artery disease. [facility] Medical History Hypertensive emergency NSTEMI, initial episode of care Mitral stenosis On home oxygen therapy Atrial fibrillation Chronic low back pain Diastolic hypertension Elevated troponin Chest pain PAF (paroxysmal atrial fibrillation) Emphysema of lung Smoking greater than 30 pack years Nicotine dependence, cigarettes, uncomplicated New onset atrial fibrillation Elevated troponin Atrial fibrillation Hypothyroidism Smoker Coronary artery disease TIA (transient ischemic attack) Influenza A [place] (dyspnea on exertion) Atherosclerotic heart disease of [place] coronary artery without angina pectoris Cardiac murmur Nonsustained paroxysmal supraventricular tachycardia Multiple sclerosis Nonobstructive atherosclerosis of coronary artery Peripheral vascular occlusive disease Essential (primary) hypertension Bilateral carotid artery stenosis History of transient ischemic attack (TIA) Fatty liver Thrombocytopenia GERD (gastroesophageal reflux disease) Psoriatic arthritis Psoriasis Osteoporosis Osteoarthritis Goiter Multiple sclerosis HLD (hyperlipidemia) Angina pectoris Chronic pain syndrome Home Medications ?Medication ?Instructions ?Recorded ?Last Taken ?Type gabapentin 800 mg tablet 800 mg PO TID MS 07/16/18 03/19/25 History baclofen 20 mg tablet 20 mg PO Q6H MS 08/11/21 03/19/25 History levothyroxine 50 mcg tablet 50 mcg PO DAILY thyroid 08/11/21 04/21/25 History oxycodone 10 mg tablet 10 mg PO Q6H PRN pain 05/24/23 12/01/23 History dextromethorphan-guaifenesin ER 60 1 tab PO Q12H PRN cough/congest 02/19/24 03/19/25 History mg-1,200 mg tab,extend release,12hr (Mucinex DM) famotidine 40 mg tablet 40 mg PO QDAY PRN indigestion 11/24/24 03/19/25 History aspirin 81 mg tablet,delayed 81 mg PO BREAKFAST heart health 12/11/24 03/19/25 Rx release #30 tabs carvedilol 3.125 mg tablet 3.125 mg PO BIDCM heart #180 tabs 03/03/25 04/21/25 Rx apixaban 5 mg tablet (Eliquis) 5 mg PO Q12H anticoagulation #180 03/09/25 03/19/25 Rx tabs cholecalciferol (vitamin D3) 125 125 mcg PO DAILY supplement 04/18/25 Unknown History mcg (5,000 unit) capsule docusate sodium 100 mg capsule 100 mg PO BID stool softener 7 04/18/25 Unknown Rx (Colace) days #14 caps doxepin 10 mg/mL oral concentrate 5 - 10 mg PO QHS 04/18/25 Unknown History naloxegol 25 mg tablet (Movantik) 25 mg PO DAILY 30 days #30 tabs 04/18/25 Unknown Rx rosuvastatin 10 mg tablet 10 mg PO QHS hld 04/18/25 Unknown History pantoprazole 40 mg tablet,delayed 40 mg PO DAILY 90 days #90 tabs 04/22/25 Unknown Rx release (Protonix) polysaccharide iron complex 150 mg 150 mg PO DAILY 90 days #90 caps 04/22/25 Unknown Rx iron capsule (Ferrex) potassium chloride 20 mEq/15 mL 20 meq (15 mL) PO DAILY 30 days 04/22/25 Unknown Rx oral liquid #450 mL amlodipine 2.5 mg tablet 2.5 mg PO QDAY 05/13/25 Unknown History lisinopril 10 mg tablet 10 mg PO QDAY blood pressure 05/13/25 Unknown History capsaicin 0.1 % topical cream 1 applic topical TID #60 grams 05/19/25 Unknown Rx misoprostol 100 mcg tablet PO 05/19/25 Unknown History oxycodone 5 mg tablet 5 mg PO Q6H PRN pain 3 days #12 05/19/25 Unknown Rx tabs Allergy/AdvReac Type Severity Reaction Status Date / Time colestipol (From Colestid) Allergy Mild unknown Verified 06/03/25 02:30 pregabalin (From Lyrica) Allergy Mild Hives Verified 06/03/25 02:30 amitriptyline Allergy Rash Verified 06/03/25 02:30 temazepam (From Restoril) AdvReac Mild Nausea/Vom/ Verified 06/03/25 02:30 Diarrhea Antihistamines - Alkylamine AdvReac Nausea/Vom/ Verified 06/03/25 02:30 Diarrhea Antihistamines - Ethanolamine AdvReac Nausea/Vom/ Verified 06/03/25 02:30 Diarrhea Antihistamines - AdvReac Nausea/Vom/ Verified 06/03/25 02:30 Ethylenediamine Diarrhea Antihistamines - Piperazine AdvReac Nausea/Vom/ Verified 06/03/25 02:30 Diarrhea Antihistamines - Piperidine AdvReac Nausea/Vom/ Verified 06/03/25 02:30 Diarrhea aspirin AdvReac I'M ON Verified 06/03/25 02:30 BLOOD THINNERS codeine AdvReac Nausea Verified 06/03/25 02:30 Corticosteroids AdvReac Upset Verified 06/03/25 02:30 (Glucocorticoids) Stomach morphine AdvReac Nausea Verified 06/03/25 02:30 [id number] Reductase AdvReac Nausea Verified 06/03/25 02:30 Inhibitor (Bezftvq-[id number]-[id number] Reductase Inhibitor) Family History Mother Cancer CAD (coronary artery disease) Brain tumor Grandfather CVA (cerebral vascular accident) Father CAD (coronary artery disease) Ruptured abdominal aortic aneurysm (AAA) Sister Brain aneurysm Surgical History History of coronary artery stent placement History of appendectomy History of cholecystectomy History of angioplasty of peripheral vessel (07/11/19) Stenosis of left subclavian artery History of left heart catheterization (01/25/15) S/P coil embolization of cerebral aneurysm History of angioplasty of peripheral vessel History of right-sided carotid endarterectomy History of left-sided carotid endarterectomy History of partial thyroidectomy (11/30/05) History of hemorrhoidectomy History of hysterectomy History of section Brain aneurysm Fracture of right lower leg S/P insertion of iliac artery stent History of left breast biopsy H/O hemorrhoidectomy S/P hysterectomy H/O: S/P thyroidectomy Social History household members: none housing: apartment Smoking Status: Current every day smoker tobacco type: cigarettes alcohol intake: never caffeine: Yes Type: coffee and tea ROS Constitutional Constitutional: Denies fatigue, fever(s), poor appetite, weight gain or weight loss Gastrointestinal Gastrointestinal: Denies belching, bloating, change in bowel habits, change in stool character, chewing difficulty, coffee ground emesis, constipation, cramping, diarrhea, dyspepsia, dysphagia, early satiety, excessive flatus, fecal incontinence, heartburn, hematemesis, hematochezia, hemorrhoids, loose stools, melena, nausea, odynophagia, rectal bleeding, tenesmus, vomiting or weight changes Physical Exam Const alert, oriented x3, no apparent distress and healthy appearing General Appearance: cooperative GI normal to inspection, nondistended, normoactive bowel sounds, soft to palpation, non-tender and non-distended Percussion: normal to percussion Rectal Exam: deferred Medical Records Data Medical Nutrition Assessment Dietitian: Malnutrition Criteria Met Start: 06/03/25 14:52 Freq: Status: Active Protocol: Document 06/03/25 14:52 SB (Rec: 06/03/25 14:52 SB [id number]) Nutrition Malnutrition Evidence of Yes Malnutrition Exists Malnutrition (severe Chronic ): Evidenced By Suboptimal Energy Intake (Moderate),Weight Loss (Severe ) Clinical Problem Chronic Disease or Condition Related Malnutrition Etiology moderate to severe malnutrition related to inadequate oral/energy intake Signs/Symptoms as evidenced by PO meeting <50% of estimated nutrition needs x 2-3 days and 9% unintentional weight loss x 5 months. Status Active Problem Recommendation Dietitian Recommend advanced diet as tolerated to liberal regular Recommendations/ . Changes Continue 120ml EPHP TID with medpass. Will monitor weight trends. Lab / Micro Data 06/03/25 12:22 06/03/25 02:34 Labs: Laboratory Results - last 24 hr 06/03/25 02:34: WBC 7.6, RBC 2.28 L, Hgb 5.2 L*, Hct 18.0 L, MCV 78.9 L, MCH 22.8 L, MCHC 28.9 L, RDW Std Deviation 58.9 H, RDW Coeff of David 20.2 H, Plt Count 181, MPV 10.6, Immature Gran % (Auto) 0.800, Neut % (Auto) 69.4, Lymph % (Auto) 13.4 L, [place] % (Auto) 14.0 H, Eos % (Auto) 2.0, Baso % (Auto) 0.4, Absolute Neuts (auto) 5.3, Absolute Lymphs (auto) 1.02, Nucleated RBC % 3.9, RBC Morphology N CYTIC, Anisocytosis RARE, Stomatocytes 1+, Sodium 136, Potassium 3.7, Chloride 101, Carbon Dioxide 20.9 L, Anion Gap 14, BUN 23 H, Creatinine 1.07, Estim Creat Clear Calc 38.46 L, Est GFR (MDRD) Non-Af 56 L, BUN/Creatinine Ratio 21.6 H, Glucose 116 H, Calcium 8.1, Magnesium 2.1, Total Bilirubin 0.47, Direct Bilirubin 0.25, AST 37 H, ALT 95 H, Alkaline Phosphatase 113 H, NT pro BNP II 6776 H, Total Protein 5.7 L, Albumin 3.7, Globulin 2.0 L 06/03/25 03:20: Blood Type O POSITIVE, Antibody Screen NEGATIVE, Crossmatch See Detail 06/03/25 03:20: Crossmatch See Detail 06/03/25 08:44: Hgb Cancelled, Hct Cancelled, Diff Path Review Cancelled 06/03/25 12:22: Hgb 7.8 L, Hct 25.2 L Micro: Microbiology 06/03/25 03:39 Stool Stool Occult Blood (CARMEN) - Final Imaging Radiology Impression Chest X-Ray 06/03/25 03:20 IMPRESSION: Small right effusion. Reading Location: [place] [id number] Assessment & Plan Assessment/Plan (1) Symptomatic anemia: PLAN: Plan Patient is a 69-year-old lady presented with fatigue found to be anemic with hemoglobin of 5.2. She is on anticoagulation with Eliquis for atrial fibrillation. Hemoglobin was up after blood transfusion. She was explained alternatives, risk and benefits include not withstanding bleeding, infection, sepsis, perforation, need for more surgery . She will have an ASA of 3.
[2025-06-03 20:38] LABS: Hematocrit 24.7 % (37-47); Hemoglobin 7.9 g/dL (12.0-15.0)
[2025-06-04] VITALS (26 sets, daily range): BP systolic 74–126; BP diastolic 36–87; PULSE 46–59; RESP 10–19; TEMP 36.1–36.6; O2SAT 86–100; BMI 17.6; BMI 17.4
[2025-06-04] MEDS: 0.9% Normal Saline (500mL Bag) 500 ML 999 ML IV (01:41)
[2025-06-04] MEDS: 0.9% Saline Lock 10 ML Syringe IV ×2 (02:31→22:02)
[2025-06-04] MEDS: HYDROmorphone 0.5 MG/0.5 ML SYRINGE IV (02:35)
[2025-06-04 02:58] LABS: Hematocrit 24.3 % (37-47); Hemoglobin 7.6 g/dL (12.0-15.0); Immature Granulocytes Count 0.050 X10^3/uL (0.0-0.0); Mean Corp Hgb Conc 31.3 g/dL (32-36); Mean Corpuscular Volume 79.2 fL (81-99); Mean Platelet Vol. 9.9 fl (6.2-12.0); NRBC Flagged by Analyzer 2.0 % (0-5); Platelet Count 129 K/mm3 (150-450); RBC Distribution Width CV 18.1 % (11.6-14.6); RBC Distribution Width SD 52.5 fl (35.1-43.9); Red Blood Count 3.07 M/mm3 (4.2-5.4); White Blood Count 8.0 K/mm3 (4.4-11.0)
[2025-06-04 03:08] LABS: Prothrombin Time (Protime)PT. 15.4 SECONDS (11.7-14.9)
[2025-06-04 03:09] LABS: Partial Thromboplast Time 29.9 Seconds (24.1-36.2)
[2025-06-04 03:30] LABS: Anion Gap 12 (5-15); BUN 17 mg/dL (4-19); BUN/Creat Ratio 14.9 RATIO (10-20); Calcium,Total 7.5 mg/dL (7.6-11.0); Carbon Dioxide 26.9 mmol/L (21.0-32.0); Chloride 97 mmol/L (98-108); Estimated Creatinine Clearance 34.35 ml/min (50-250); Glucose 85 mg/dL (70-99); Magnesium 1.6 mg/dL (1.5-2.2); Potassium 2.9 mmol/L (3.3-5.1)
[2025-06-04] MEDS: Albumin Human 25% (100 mL) 25 GM/100 ML BAG IV (05:03)
--- NOTE | 2025-06-04 08:34 | PCM.PN.HOSP ---
Reason for Visit Chief Complaint: Bilateral lower extremities swelling Subjective Subjective Patient was kept n.p.o. overnight and is scheduled to undergo EGD this a.m. Patient seen this a.m. appears ill looking has nausea and blood pressure has been running low 12 the whole night. Hemoglobin up to 7.6. Potassium 2.9 Objective Data Objective Data Vital Signs: Vital Signs Temp Pulse Resp BP Pulse Ox O2 Del Method O2 Flow Rate 97.4 F L 57 L 18 97/75 100 Nasal Cannula 2 06/04/25 02:28 06/04/25 07:00 06/04/25 07:00 06/04/25 07:00 06/04/25 07:00 06/04/25 07:00 06/04/25 07:00 Oxygen Flow Rate (L/min) 2 Oxygen Delivery Method Nasal Cannula Weight: 47.6 kg Body Mass Index (BMI) 17.4 Intake & Output: Intake and Output for Last 24 Hours 06/02/25 06/03/25 06/04/25 23:59 23:59 23:59 Intake Total 1680 / 1680 500 / 500 Output Total 700 / 700 Balance 1680 / 1680 -200 / -200 Medical Nutrition Assessment Dietitian: Malnutrition Criteria Met Start: 06/03/25 14:52 Freq: Status: Active Protocol: Document 06/03/25 14:52 SB (Rec: 06/03/25 14:52 SB [id number]) Nutrition Malnutrition Evidence of Yes Malnutrition Exists Malnutrition (severe Chronic ): Evidenced By Suboptimal Energy Intake (Moderate),Weight Loss (Severe ) Clinical Problem Chronic Disease or Condition Related Malnutrition Etiology moderate to severe malnutrition related to inadequate oral/energy intake Signs/Symptoms as evidenced by PO meeting <50% of estimated nutrition needs x 2-3 days and 9% unintentional weight loss x 5 months. Status Active Problem Recommendation Dietitian Recommend advanced diet as tolerated to liberal regular Recommendations/ . Changes Continue 120ml EPHP TID with medpass. Will monitor weight trends. Lab / Micro Data 06/04/25 02:50 06/04/25 02:50 Labs: Laboratory Results - last 24 hr 06/03/25 03:20: Crossmatch See Detail 06/03/25 03:20: Crossmatch See Detail 06/03/25 08:44: Hgb Cancelled, Hct Cancelled, Diff Path Review Cancelled 06/03/25 12:22: Hgb 7.8 L, Hct 25.2 L 06/03/25 19:49: Hgb 7.9 L, Hct 24.7 L 06/04/25 02:50: WBC 8.0, RBC 3.07 L, Hgb 7.6 L, Hct 24.3 L, MCV 79.2 L, MCH 24.8 L, MCHC 31.3 L D, RDW Std Deviation 52.5 H, RDW Coeff of David 18.1 H, Plt Count 129 L, MPV 9.9, Immature Gran % (Auto) 0.600, Neut % (Auto) 68.8, Lymph % (Auto) 14.1 L, [place] % (Auto) 12.9 H, Eos % (Auto) 3.1, Baso % (Auto) 0.5, Absolute Neuts (auto) 5.5, Absolute Lymphs (auto) 1.13, Nucleated RBC % 2.0, PT 15.4 H, INR 1.2, APTT 29.9, Sodium 136, Potassium 2.9 L, Chloride 97 L, Carbon Dioxide 26.9, Anion Gap 12, BUN 17, Creatinine 1.15, Estim Creat Clear Calc 34.35 L, Est GFR (MDRD) Non-Af 51 L, BUN/Creatinine Ratio 14.9, Glucose 85, Calcium 7.5 L, Phosphorus 3.7, Magnesium 1.6 Micro: Microbiology 06/03/25 03:39 Stool Stool Occult Blood (CARMEN) - Final Physical Exam Narrative GENERAL: Patient appears ill looking HEENT: Atraumatic; normocephalic EYES; Anicteric, pallor of the conjunctiva NECK; supple, normal thyroid, RESPIRATORY: Diminished to auscultation CARDIOVASCULAR: Regular S1 S2, GI: soft, normoactive bowel sounds, : No Renal angle tenderness; EXTREMITIES: No edema, no clubbing, MUSCULOSKELETAL: no muscle wasting NEURO: Awake; no lateralizing signs. SKIN: No Rash PSYCH; Flat affect Assessment & Plan Assessment/Plan (1) Anemia: (2) Congestive heart failure: PLAN: Plan Patient is a 69-year-old lady who presented with swelling involving both lower extremities found to have hemoglobin of 5.2 1. Acute congestive heart failure with preserved ejection fraction ? Pressure titrated by patient's severe anemia. Patient has been admitted to monitored bed placed on strict input and output, daily weights, fluid restriction IV furosemide ? 06/04/2025; echo from 01/11/2025 demonstrated EF of 70%. With patient blood pressure running on the low side decreased furosemide dose 2. Acute symptomatic anemia ? Patient hemoglobin on admission was 5.2. 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 Treated with a heater probe. Colonoscopy revealed One 10 mm polyp at the splenic flexure, removed with a hot snare. Resected and retrieved. - Diverticulosis in the recto-sigmoid colon, in the sigmoid colon, in the descending colon and in the ascending colon. - A few ulcers in the rectum. Biopsied. An order was given for patient to be transfused with 2 unit PRBC. Admitted to monitored bed consultation placed to Dr. Gonzalez with GI from the emergency department. Patient was kept n.p.o. pending repeat endoscopic evaluation ? Patient hemoglobin up to 7.6 following transfusion with 2 unit PRBC 3. Paroxysmal A-fib ? Rate controlled on systemic anticoagulation with apixaban held given her presentation. Patient apixaban has been held for a week following her admission after her GI bleed. Given the recurrent nature of symptoms patient may not be a good candidate for systemic anticoagulation 4. Hypertension - Blood pressure controlled, home medications continued with dose adjustment as needed ? 06/04/2025; held patient antihypertensives given her relatively low blood pressure patient did receive fluid resuscitation 5. Hypothyroidism ? Patient is on levothyroxine did continue with home dose 6. Peripheral arterial disease ? With history of bilateral carotid artery stenosis, peripheral vascular occlusive disease. Patient was on systemic anticoagulation with apixaban held given about reasons 7. Dyslipidemia ?Patient is on statin therapy, continued at home dose 8. Multiple sclerosis ? Complicating patient's care patient is on baclofen for muscle relaxation 9. Chronic pain syndrome ? Restarted patient home pain regimen 10. DVT prophylaxis ? Patient is on apixaban held given his GI bleed 11. Hypokalemia ? Corrected per protocol, repeat potassium ordered in 4 hours to assess for response to therapy Time spent in the patient's overall evaluation,decision-making process, review of diagnostic data, adjustment of management, discussion with other providers, nursing nursing and ancillary staff involved in patient's care [id number] Minutes Charges/Coding Visit Charges Inpatient E&M: 11649 Subs Hosp L3
[2025-06-04 08:56] LABS: Hematocrit 23.1 % (37-47); Hemoglobin 7.4 g/dL (12.0-15.0)
[2025-06-04] MEDS: 0.9% Normal Saline (250mL Bag) 250 ML 999 ML IV (09:01)
[2025-06-04] MEDS: Potassium Chloride 10mEq/100mL 10 MEQ/100 ML IV.SOLN. 100 MEQ IV BOLUS ×4 (09:22→12:35)
[2025-06-04 09:49] LABS: CORTISOL AM 13.10 ug/dL (6.02-18.40)
[2025-06-04] MEDS: Lorazepam 2 MG/ML WCH Syringe 0.5 MG IV (10:08)
[2025-06-04] MEDS: Lorazepam 2 MG/ML WCH Syringe 1 MG IV (11:22)
--- NOTE | 2025-06-04 15:57 | CASEMGMT ---
EVERT CHAVARRIA attempted to complete assessment with patient, per nursing patient is withdrawing, confused, and not able to actively participate in CM assessment at this time. RN DEON CHAVARRIA reviewed chart. Patient is currently active with [facility] for residential. Patient has CM through [place], Tena Santoro P:[phone] F:[phone]. Patient had CM assessment on 04/20/25, see below. CM will continue to follow this patient and will discuss discharge planning with patient when she is able to actively participate in conversation. 04/20/25 10:10 - Case Management Note by Darya Colin Acct Num: [id number] : 1955 Patient Age: 69 RN DEON Assessment: Face to Face with pt for initial transition planning/care coordination assessment. EVERT CHAVARRIA introduced self and role at [facility], pt voices understanding and consents to assessment. Pt is A&O x4 and answers all questions appropriately at this time. Pt lying in bed in no distress. Care providers, pharmacy, and demographics verified/updated. Strata: 4 Admitting Dx: Symptomatic Anemia PCP: Chetan Specialists: Etelvina, Neurologist. Preferred Pharmacy: [facility] Insurance: [employer] Prescription Benefit: yes LNOK: Son, Roberto; Son, Augusto Living Arrangements: Pt lives alone in a 1 level apartment with no steps to enter ADLs: I with ADLs, has a home health aide that comes every sunday for 4 hours to help with cleaning and getting groceries. She does not recall what agency it is through. Pt states they are planning to add a second day, insurance approved up to 10 hrs a week. Pt states she has a Rod Greaser through [employer], her name is Tena. She does not have her phone number. Transportation: Pt HH aide provides transportation. DME: rollator, hosp. bed, shower bench. HHC/SNF: Previously used [facility]. Pt states no concerns with going home at time of dc. EVERT CHAVARRIA discussed having HHC SN and PT, pt agreeable and requested [facility] since she used them in the past. Pt denies wanting a list of providers. Pt states no further concerns/needs. CM to follow. Advised pt to ask CM if any further question/concerns/needs arise, voices understanding. Pt Goal: Home Plan: Home with HHC
--- NOTE | 2025-06-04 16:04 | CASEMGMT ---
Social Work - Direction Home SW left VM with pt's Direction Home DEON Santoro and notified of pt's hospital admission. YAW will fax dc orders at the appropriate time. ANGELINA Louies
--- NOTE | 2025-06-04 17:46 | PCM.PN.BLA ---
Progress Note Patient was supposed to get upper endoscopy today. However, she was given sedation and was sedated. Therefore she could not give consent. Physical Exam Const alert, oriented x3, no apparent distress and healthy appearing General Appearance: cooperative GI normal to inspection, nondistended, normoactive bowel sounds, soft to palpation, non-tender and non-distended Percussion: normal to percussion Rectal Exam: deferred Assessment & Plan Assessment/Plan (1) Symptomatic anemia: PLAN: Plan Patient is a 69-year-old lady presented with fatigue found to be anemic with hemoglobin of 5.2. She is on anticoagulation with Eliquis for atrial fibrillation. Hemoglobin was up after blood transfusion. She was explained alternatives, risk and benefits include not withstanding bleeding, infection, sepsis, perforation, need for more surgery . She will have an ASA of 3. 06/04/2025-patient for EGD tomorrow. Keep n.p.o. past midnight. Visit Charges Inpatient E&M: 84965 Init Hosp L3
[2025-06-04] MEDS: Pantoprazole Sodium 40 MG in 0.9% Normal Saline (100mL MB+) 100 ML 300 MG IV (21:59)
[2025-06-05] VITALS (20 sets, daily range): BP systolic 100–151; BP diastolic 51–102; PULSE 47–124; RESP 11–18; TEMP 36.1–36.9; O2SAT 93–100; BMI 17.2
[2025-06-05 04:58] LABS: Hematocrit 22.1 % (37-47); Hemoglobin 6.9 g/dL (12.0-15.0); Immature Granulocytes Count 0.040 X10^3/uL (0.0-0.0); Mean Corp Hgb Conc 31.2 g/dL (32-36); Mean Corpuscular Volume 79.2 fL (81-99); Mean Platelet Vol. 10.8 fl (6.2-12.0); NRBC Flagged by Analyzer 0.7 % (0-5); POSITIVE COUNT YES; Platelet Count 109 K/mm3 (150-450); RBC Distribution Width CV 18.3 % (11.6-14.6); RBC Distribution Width SD 52.4 fl (35.1-43.9); Red Blood Count 2.79 M/mm3 (4.2-5.4); White Blood Count 7.2 K/mm3 (4.4-11.0)
[2025-06-05 05:07] LABS: Differential Indicated SCAN CRITERIA MET
[2025-06-05 05:51] LABS: Anion Gap 11 (5-15); BUN 13 mg/dL (4-19); BUN/Creat Ratio 13.2 RATIO (10-20); Calcium,Total 7.9 mg/dL (7.6-11.0); Carbon Dioxide 24.5 mmol/L (21.0-32.0); Chloride 104 mmol/L (98-108); Estimated Creatinine Clearance 38.84 ml/min (50-250); Glucose 73 mg/dL (70-99); Potassium 3.6 mmol/L (3.3-5.1)
[2025-06-05 06:18] LABS: Differential Comment SCANNED
[2025-06-05] MEDS: 0.9% Normal Saline (250mL Bag) 250 ML 15 ML IV (06:44)
[2025-06-05] MEDS: 0.9% Saline Lock 10 ML Syringe IV ×2 (06:52→21:37)
--- NOTE | 2025-06-05 07:49 | PCM.PN.HOSP ---
Reason for Visit Chief Complaint: Bilateral lower extremities swelling Subjective Subjective Patient became very restless and delirious the day prior did receive Ativan. By the time patient arrived for the EGD she could not give the consent. Seen this a.m. much more awake and interactive. Hemoglobin down to 6.9 an additional unit given. Patient EGD scheduled for this afternoon (consent has been signed) Objective Data Objective Data Vital Signs: Vital Signs Temp Pulse Resp BP Pulse Ox O2 Del Method O2 Flow Rate 98.1 F 58 L 18 140/77 H 100 Nasal Cannula 2 06/05/25 07:00 06/05/25 07:00 06/05/25 07:00 06/05/25 07:00 06/05/25 07:00 06/05/25 07:00 06/05/25 07:00 Oxygen Flow Rate (L/min) 2 Oxygen Delivery Method Nasal Cannula Weight: 47 kg Body Mass Index (BMI) 17.2 Intake & Output: Intake and Output for Last 24 Hours 06/03/25 06/04/25 06/05/25 23:59 23:59 23:59 Intake Total 1680 / 1680 1350 / 1350 0.25 / 0.25 Output Total 700 / 700 800 / 800 Balance 1680 / 1680 650 / 650 -799.75 / -799.75 Medical Nutrition Assessment Dietitian: Malnutrition Criteria Met Start: 06/03/25 14:52 Freq: Status: Active Protocol: Document 06/03/25 14:52 SB (Rec: 06/03/25 14:52 SB [id number]) Nutrition Malnutrition Evidence of Yes Malnutrition Exists Malnutrition (severe Chronic ): Evidenced By Suboptimal Energy Intake (Moderate),Weight Loss (Severe ) Clinical Problem Chronic Disease or Condition Related Malnutrition Etiology moderate to severe malnutrition related to inadequate oral/energy intake Signs/Symptoms as evidenced by PO meeting <50% of estimated nutrition needs x 2-3 days and 9% unintentional weight loss x 5 months. Status Active Problem Recommendation Dietitian Recommend advanced diet as tolerated to liberal regular Recommendations/ . Changes Continue 120ml EPHP TID with medpass. Will monitor weight trends. Lab / Micro Data 06/05/25 04:17 06/05/25 04:17 Labs: Laboratory Results - last 24 hr 06/03/25 03:20: Crossmatch See Detail 06/04/25 08:40: Hgb 7.4 L, Hct 23.1 L, Cortisol AM Sample 13.10 06/05/25 04:17: WBC 7.2, RBC 2.79 L, Hgb 6.9 L, Hct 22.1 L, MCV 79.2 L, MCH 24.7 L, MCHC 31.2 L, RDW Std Deviation 52.4 H, RDW Coeff of David 18.3 H, Plt Count 109 L, MPV 10.8, Immature Gran % (Auto) 0.600, Neut % (Auto) 76.6 H, Lymph % (Auto) 9.9 L, [place] % (Auto) 10.1 H, Eos % (Auto) 2.4, Baso % (Auto) 0.4, Absolute Neuts (auto) 5.5, Absolute Lymphs (auto) 0.71 L, Nucleated RBC % 0.7, Differential Comment SCANNED, Sodium 139, Potassium 3.6, Chloride 104, Carbon Dioxide 24.5, Anion Gap 11, BUN 13, Creatinine 1.00, Estim Creat Clear Calc 38.84 L, Est GFR (MDRD) Non-Af 61, BUN/Creatinine Ratio 13.2, Glucose 73, Calcium 7.9 Micro: Microbiology 06/03/25 03:39 Stool Stool Occult Blood (CARMEN) - Final Physical Exam Narrative GENERAL: Patient appears ill looking HEENT: Atraumatic; normocephalic EYES; Anicteric, pallor of the conjunctiva NECK; supple, normal thyroid, RESPIRATORY: Diminished to auscultation CARDIOVASCULAR: Regular S1 S2, GI: soft, normoactive bowel sounds, : No Renal angle tenderness; EXTREMITIES: No edema, no clubbing, MUSCULOSKELETAL: no muscle wasting NEURO: Awake; no lateralizing signs. SKIN: No Rash PSYCH; Flat affect Assessment & Plan Assessment/Plan (1) Anemia: (2) Congestive heart failure: PLAN: Plan Patient is a 69-year-old lady who presented with swelling involving both lower extremities found to have hemoglobin of 5.2 1. Acute congestive heart failure with preserved ejection fraction ? Pressure titrated by patient's severe anemia. Patient has been admitted to monitored bed placed on strict input and output, daily weights, fluid restriction IV furosemide ? 06/04/2025; echo from 01/11/2025 demonstrated EF of 70%. With patient blood pressure running on the low side decreased furosemide dose 2. Acute symptomatic anemia ? Patient hemoglobin on admission was 5.2. 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 Treated with a heater probe. Colonoscopy revealed One 10 mm polyp at the splenic flexure, removed with a hot snare. Resected and retrieved. - Diverticulosis in the recto-sigmoid colon, in the sigmoid colon, in the descending colon and in the ascending colon. - A few ulcers in the rectum. Biopsied. An order was given for patient to be transfused with 2 unit PRBC. Admitted to monitored bed consultation placed to Dr. Gonzalez with GI from the emergency department. Patient was kept n.p.o. pending repeat endoscopic evaluation ? 06/04/2025 patient hemoglobin up to 7.6 following transfusion with 2 unit PRBC ? 06/04/2025;Patient became very restless and delirious the day prior did receive Ativan. By the time patient arrived for the EGD she could not give the consent. Seen this a.m. much more awake and interactive. Hemoglobin down to 6.9 an additional unit given. Patient EGD scheduled for this afternoon (consent has been signed) 3. Paroxysmal A-fib ? Rate controlled on systemic anticoagulation with apixaban held given her presentation. Patient apixaban has been held for a week following her admission after her GI bleed. Given the recurrent nature of symptoms patient may not be a good candidate for systemic anticoagulation 4. Hypertension - Blood pressure controlled, home medications continued with dose adjustment as needed ? 06/04/2025; held patient antihypertensives given her relatively low blood pressure patient did receive fluid resuscitation 5. Hypothyroidism ? Patient is on levothyroxine did continue with home dose 6. Peripheral arterial disease ? With history of bilateral carotid artery stenosis, peripheral vascular occlusive disease. Patient was on systemic anticoagulation with apixaban held given about reasons 7. Dyslipidemia ?Patient is on statin therapy, continued at home dose 8. Multiple sclerosis ? Complicating patient's care patient is on baclofen for muscle relaxation 9. Chronic pain syndrome ? Restarted patient home pain regimen 10. DVT prophylaxis ? Patient is on apixaban held given his GI bleed 11. Hypokalemia ? Corrected per protocol, repeat potassium ordered in 4 hours to assess for response to therapy 12. <del>S</del>severe malnutrition -Related to: inadequate oral/energy intake As evidenced by: PO meeting <50% of estimated nutrition needs x 2-3 days and 9% unintentional weight loss x 5 months. With treatment/resources used including: Recommend advanced diet as tolerated to liberal regular. Continue 120ml EPHP TID with medpass. Will monitor weight trends. 13. Severe agitation ? Patient did receive Ativan Time spent in the patient's overall evaluation,decision-making process, review of diagnostic data, adjustment of management, discussion with other providers, nursing nursing and ancillary staff involved in patient's care [id number] Minutes Charges/Coding Visit Charges Inpatient E&M: 62129 [facility] Hosp L3
[2025-06-05] MEDS: HYDROmorphone 0.5 MG/0.5 ML SYRINGE IV (09:42)
[2025-06-05] MEDS: Pantoprazole Sodium 40 MG in 0.9% Normal Saline (100mL MB+) 100 ML 300 MG IV ×2 (10:57→21:37)
[2025-06-05 11:28] LABS: Hematocrit 26.7 % (37-47); Hemoglobin 8.5 g/dL (12.0-15.0); Immature Granulocytes Count 0.020 X10^3/uL (0.0-0.0); Mean Corp Hgb Conc 31.8 g/dL (32-36); Mean Corpuscular Volume 82.9 fL (81-99); Mean Platelet Vol. 9.8 fl (6.2-12.0); NRBC Flagged by Analyzer 0.5 % (0-5); Platelet Count 114 K/mm3 (150-450); RBC Distribution Width CV 17.5 % (11.6-14.6); RBC Distribution Width SD 52.8 fl (35.1-43.9); Red Blood Count 3.22 M/mm3 (4.2-5.4); White Blood Count 6.4 K/mm3 (4.4-11.0)
--- NOTE | 2025-06-05 12:03 | CASEMGMT ---
Social Work Return phone call from Tena Santoro, [facility] manager gallery. Pt has an emergency response system and home health aid every Sunday for 2 hours and every other Sunday for 2 hours. DC orders to be faxed to [facility] ([phone]). Green Sheet placed on chart to accomodate this. ANGELINA Louise
--- NOTE | 2025-06-05 13:37 | CASEMGMT ---
EVERT CHAVARRIA in to discuss discharge planning with patient, son, Roberto, at bedside. Patient is alert and oriented and able to participate in discharge planning. Patient wishes to return home with resumption of [facility] and would like PT added to services. Patient states she will have oxygen tank for at discharge. Patient denies further needs at discharge. Son had no questions or concerns. EVERT CHAVARRIA updated [facility] about anticipated discharge over the weekend and resumption placed with request for PT to be added to services. Green sheet placed on chart for HHC and possible increase in home oxygen.
--- NOTE | 2025-06-05 15:12 | PCM.PN.BLA ---
Progress Note Patient has been n.p.o. for EGD reports uroscopy due to decrease in hemoglobin and history of upper GI bleed due to peptic ulcer disease and and her spastic lesions on apixaban and aspirin. Physical Exam Narrative GENERAL: Patient appears ill looking HEENT: Atraumatic; normocephalic EYES; Anicteric, pallor of the conjunctiva NECK; supple, normal thyroid, RESPIRATORY: Diminished to auscultation CARDIOVASCULAR: Regular S1 S2, GI: soft, normoactive bowel sounds, : No Renal angle tenderness; EXTREMITIES: No edema, no clubbing, MUSCULOSKELETAL: no muscle wasting NEURO: Awake; no lateralizing signs. SKIN: No Rash PSYCH; Flat affect Assessment & Plan Assessment/Plan (1) Symptomatic anemia: PLAN: Plan Patient is a 69-year-old lady presented with fatigue found to be anemic with hemoglobin of 5.2. She is on anticoagulation with Eliquis for atrial fibrillation. Hemoglobin was up after blood transfusion. She was explained alternatives, risk and benefits include not withstanding bleeding, infection, sepsis, perforation, need for more surgery . She will have an ASA of 3. 06/04/2025-patient for EGD tomorrow. Keep n.p.o. past midnight. 06/05/2025-patient got transfused 2 units of packed red blood cells and hemoglobin is up to 8.5 from 6.9. She was explained alternatives, risk and benefits occluding withstanding bleeding, fracture, steps, perforation, need for discharge and . She have an ASA of 3. Visit Charges Inpatient E&M: 00818 [facility] Hosp L2
[2025-06-05] MEDS: Lactated Ringers 1,000 ML 15 ML IV (15:16)
--- NOTE | 2025-06-05 15:49 | PRE.ANES_ITS ---
ASA Classification* ASA Classification ASA Classification: 3 Assessment & Plan Anesthesia* Anesthesia Assessment Anesthesia Assessment: Discussed sedation and/or anesthesia options, risks, benefits, and alternatives with patient/parents/legal guardian/POA. Questions invited. The patient/parents/legal guardian/POA seems to understand and agrees to proceed with anesthesia plan. Reviewed the physical assessment, medical history, allergy history and patient home medications list prior to surgery/procedure/anesthetic and documented any changes. Performed airway and anesthesia risk assessments. Anesthesia Type Anesthesia Type: MAC History Source History Obtained from:: Patient and Chart Anesthesia Focused Assessment* Temperature: 98.0 F Pulse Rate: 56 Blood Pressure: 119/66 Respiratory Rate: 14 Pulse Ox: 95 Oxygen Flow Rate (L/min): 2 Airway Assessment Mouth opens: >3 cm Mallampati Score: II Teeth Condition: Intact Neck Range of motion (ROM): Full ROM Labs Anesthesia Preop lab: CBC WBC 6.4 K/mm3 (4.4-11.0) 06/05/25 11:15 06/05/25 RBC 3.22 M/mm3 (4.2-5.4) L 06/05/25 11:15 06/05/25 Hgb 8.5 g/dL (12.0-15.0) L 06/05/25 11:15 06/05/25 Hct 26.7 % (37-47) L 06/05/25 11:15 06/05/25 Plt Count 114 K/mm3 (150-450) L 06/05/25 11:15 06/05/25 CHEMISTRY Potassium 3.6 mmol/L (3.3-5.1) 06/05/25 04:17 06/05/25 Sodium 139 mmol/L (133-145) 06/05/25 04:17 06/05/25 Magnesium 1.6 mg/dL (1.5-2.2) 06/04/25 02:50 06/04/25 Phosphorus 3.7 mg/dL (2.7-4.5) 06/04/25 02:50 06/04/25 BUN 13 mg/dL (4-19) 06/05/25 04:17 06/05/25 Creatinine 1.00 mg/dL (0.70-1.20) 06/05/25 04:17 06/05/25 Glucose 73 mg/dL (70-99) 06/05/25 04:17 06/05/25 POC Glucose 109 mg/dL (74-106) H 04/21/25 01:15 04/21/25 TSH 1.680 uIU/mL (0.300-4.200) 05/15/25 15:26 04/20 06/12 COAG PT 15.4 SECONDS (11.7-14.9) H 06/04/25 02:50 05/19 06/12 Pre-Assessment Diagnosis/Proposed Procedure Planned Operative Procedure(s): EGD 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 - global supply chain vice president: 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 - global supply chain vice president Hx Hospitalization No 04/15/21 11:49 Any Problems With Anesthesia No 06/03/25 23:05 Cholinesterase deficiency No 06/03/25 23:05 You/Your Family Experience No 06/03/25 23:05 fever (hyperthermia) with Relationship Recent Exposure to Contagious No 06/03/25 23:05 Disease Does patient have nerve No 06/03/25 23:05 stimulator Patient instructed to have No 06/03/25 23:05 device shut off --Does patient have Pacemaker No 06/03/25 23:06 or ICD? When Was Last Pacemaker Check QUESTION #4 FULL TEXT: You/Your Family Experience fever (hyperthermia) with Anesthesia Last Oral Intake Last Oral intake: Last Oral Intake NPO since 00:00 06/03/25 23:06 Meds taken in AM with sips of water? Meds patient instructed to take am of surgery PONV PONV - global supply chain vice president: PONV - global supply chain vice president Female HX of Motion Sickness HX of N/V After Surgery Non-Smoker Duration of Surgery greater than 60 minutes Number of Risk Factors PONV Score Height & Weight Height & Weight: Anesthesia: Height & Weight Height 5 ft 5 in 06/03/25 23:06 Weight: 47 kg 06/05/25 05:10 Body Mass Index (BMI) 17.2 06/05/25 05:10 Respiratory Assessment Respiratory Assessment - global supply chain vice president: Respiratory Tract Infection Hx - global supply chain vice president Hx Respiratory Tract Infection No 06/03/25 23:05 STOP Sleep Apnea STOP Sleep Apnea - global supply chain vice president: STOP Sleep Apnea - global supply chain vice president Hx Hypertension Yes 06/03/25 08:49 Hx Sleep Apnea No 06/03/25 08:49 CPAP BIPAP Do you snore loudly (louder No 06/03/25 08:49 than talking or can be heard Do you often feel tired/ Yes 06/03/25 08:49 fatigued/ sleepy during daytime? Has anyone observed you stop No 06/03/25 08:49 breathing during sleep? STOP Results Positive 06/03/25 08:49 QUESTION #5 FULL TEXT : Do you snore loudly (louder than talking or can be heard through closed doors)? Tobacco Use History Tobacco Use History - global supply chain vice president: Tobacco Use History - global supply chain vice president Tobacco Use Smoking Status Current every day smoker 06/04/25 14:35 Hx Tobacco Use Yes 06/03/25 08:49 Years Smoking 30 06/03/25 08:49 Packs Smoked per Day 0.5 06/03/25 08:49 Smoking Cessation Date was within the last 15 years Hx Smoking Cessation Date Hx Smoking Cessation No 06/03/25 08:49 Counseling Hematologic Medial History Hematologic Hx - global supply chain vice president: Hematologic Medical Hx - director of online merchandising Hx of Blood Transfusion Yes 06/03/25 08:49 Hx of Transfusion in last 3 Yes 06/03/25 08:49 Months Date of Last Transfusion (if 6 weeks ago 06/03/25 08:49 within last 3 months) Ever experience any problems No 06/03/25 08:49 with transfusion(s)? Specify any problems Hx of Preganancy in last 3 N/A 06/03/25 08:49 Months Nurse Filling Out Transfusion HHFELICITAS 06/03/25 08:49 & Questions: Date: 06/03/25 06/03/25 08:49 Time: 08:52 06/03/25 08:49 Patient unable to answer at this time (ie. confused, unrespo /Reproduction History /Reproductive History - global supply chain vice president: /Reproductive Hx- global supply chain vice president Hx Now No 06/03/25 23:05 Gestational Age (in weeks): EDC: Hx Hx Para Hx Section SAB No 06/03/25 23:05 Active Medications Active Medications: Current Medications Generic Name Dose Route Start Last Admin Trade Name Freq PRN Reason Stop Dose Admin Acetaminophen 650 mg 06/03/25 08:34 06/05/25 00:28 Acetaminophen 325 Mg Tablet PO 650 mg Q6H PRN PRN Administration Pain 1-10 Or Fever >100.7 Albuterol Sulfate 2.5 mg 06/03/25 08:34 Albuterol 2.5 Mg/3 Ml Vial.Neb. INHALATION Q2H PRN PRN SOB &/OR WHEEZING Atorvastatin Calcium 20 mg 06/03/25 22:00 06/04/25 21:49 Atorvastatin Calcium 20 Mg Tablet PO Not Given QHS VIMAL Baclofen 20 mg 06/03/25 12:00 06/05/25 11:04 Baclofen 10 Mg Tablet PO Not Given Q6H VIMAL Cholecalciferol 125 mcg 06/03/25 10:00 06/05/25 08:30 Cholecalciferol (Vit D3) 125 Mcg Capsule (5,000 Units) PO Not Given DAILY [facility] Docusate Sodium 100 mg 06/03/25 10:00 06/05/25 08:30 Docusate Sodium 100 Mg Capsule PO Not Given BID VIMAL Gabapentin 800 mg 06/03/25 14:00 06/05/25 13:09 Gabapentin 800 Mg Tablet PO Not Given TID [facility] Guaifenesin 2 tablet 06/03/25 09:07 Guaifenesin/D-Methorphan Tab.Sr.12h PO Q12H PRN cough/congest Hydromorphone HCl 0.5 - 1 mg 06/03/25 08:34 06/04/25 11:38 Hydromorphone 1 Mg/Ml Syringe IV 1 mg Q3H PRN PRN Administration Pain Score 6-10 Hydromorphone HCl 0.5 - 1 mg 06/03/25 09:09 06/05/25 09:42 Hydromorphone 0.5 Mg/0.5 Ml Syringe IV 1 mg Q3H PRN PRN Administration Pain Score 6-10 Pantoprazole Sodium 40 mg/ 100 mls @ 300 mls/hr 06/03/25 10:00 06/05/25 11:33 Sodium Chloride IV Infused Q12 VIMAL Infusion Sodium Chloride 250 mls @ 15 mls/hr 06/03/25 08:54 06/05/25 13:12 IV Infused .[id number] PRN Infusion Saline Flush Sodium Chloride 250 mls @ 15 mls/hr 06/03/25 08:54 IV .[id number] PRN Additional IVPB Infusion Sodium Chloride 250 mls @ 15 mls/hr 06/04/25 15:58 IV .[id number] PRN Saline Flush Sodium Chloride 250 mls @ 15 mls/hr 06/04/25 15:58 IV .[id number] PRN Additional IVPB Infusion Sodium Chloride 250 mls @ 15 mls/hr 06/05/25 08:29 IV .[id number] PRN Saline Flush Sodium Chloride 250 mls @ 15 mls/hr 06/05/25 08:29 IV .[id number] PRN Additional IVPB Infusion Lactated Ringer's 1,000 mls @ 15 mls/hr 06/05/25 15:15 06/05/25 15:16 IV 15 mls/hr .Q48H VIMAL Administration Levothyroxine Sodium 50 mcg 06/04/25 06:00 06/05/25 05:36 Levothyroxine 50 Mcg Tablet PO Not Given DAILY@0600 VIMAL Melatonin 3 mg 06/03/25 08:34 Melatonin 3 Mg Tablet PO QHS PRN PRN INSOMNIA Nutritional Formula (Lactose Free) 120 ml 06/03/25 12:00 06/05/25 11:04 Ensure Plus High Protein 120 Ml Liquid PO Not Given TIDCM VIMAL Ondansetron HCl 4 mg 06/03/25 08:34 06/04/25 08:38 Ondansetron 4 Mg/2 Ml Vial IV 4 mg Q8H PRN PRN Administration NAUSEA/VOMITING Oxycodone HCl 5 mg 06/03/25 08:34 06/03/25 22:44 Oxycodone 5 Mg Tablet PO 5 mg Q4H PRN PRN Administration Pain Score 4-10 Polysaccharide Iron Complex 150 mg 06/03/25 10:00 06/05/25 08:30 Iron Polysaccharide Complex 150 Mg Capsule PO Not Given DAILY VIMAL Potassium Chloride 20 meq 06/03/25 10:00 06/05/25 08:31 Potassium Chloride Oral Soln 20 Meq/15 Ml Udc PO Not Given DAILY VIMAL Sodium Chloride 10 - 40 ml 06/03/25 08:54 06/05/25 06:52 0.9% Saline Lock 10 Ml Syringe IV 10 ml UD PRN Administration SALINE FLUSH Sodium Chloride 10 - 40 ml 06/04/25 15:58 0.9% Saline Lock 10 Ml Syringe IV UD PRN SALINE FLUSH Sodium Chloride 10 - 40 ml 06/05/25 08:29 0.9% Saline Lock 10 Ml Syringe IV UD PRN SALINE FLUSH PFSH Medical History Hypertensive emergency NSTEMI, initial episode of care Mitral stenosis On home oxygen therapy Atrial fibrillation Chronic low back pain Diastolic hypertension Elevated troponin Chest pain PAF (paroxysmal atrial fibrillation) Emphysema of lung Smoking greater than 30 pack years Nicotine dependence, cigarettes, uncomplicated New onset atrial fibrillation Elevated troponin Atrial fibrillation Hypothyroidism Smoker Coronary artery disease TIA (transient ischemic attack) Influenza A [place] (dyspnea on exertion) Atherosclerotic heart disease of [place] coronary artery without angina pectoris Cardiac murmur Nonsustained paroxysmal supraventricular tachycardia Multiple sclerosis Nonobstructive atherosclerosis of coronary artery Peripheral vascular occlusive disease Essential (primary) hypertension Bilateral carotid artery stenosis History of transient ischemic attack (TIA) Fatty liver Thrombocytopenia GERD (gastroesophageal reflux disease) Psoriatic arthritis Psoriasis Osteoporosis Osteoarthritis Goiter Multiple sclerosis HLD (hyperlipidemia) Angina pectoris Chronic pain syndrome Home Medications ?Medication ?Instructions ?Recorded ?Last Taken ?Type gabapentin 800 mg tablet 800 mg PO TID MS 07/16/18 History baclofen 20 mg tablet 20 mg PO Q6H MS 08/11/2112/13 History levothyroxine 50 mcg tablet 50 mcg PO DAILY thyroid 04/21/25 History oxycodone 10 mg tablet 10 mg PO Q6H PRN pain 12/01/23 History dextromethorphan-guaifenesin ER 60 1 tab PO Q12H PRN c ough/congest 02/19/24 03/19/25 History mg-1,200 mg tab,extend release,12hr (Mucinex DM) famotidine 40 mg tablet 40 mg PO QDAY PRN indigestio n 11/24/24 03/19/25 History aspirin 81 mg tablet,delayed 81 mg PO BREAKFAST heart health 12/11/24 03/19/25 Rx release #30 tabs carvedilol 3.125 mg tablet 3.125 mg PO BIDCM heart #18 0 tabs 03/03/25 04/21/25 Rx apixaban 5 mg tablet (Eliquis) 5 mg PO Q12H anticoagul ation #180 03/09/25 03/19/25 Rx tabs cholecalciferol (vitamin D3) 125 125 mcg PO DAILY supp lement 04/18/25 Unknown History mcg (5,000 unit) capsule docusate sodium 100 mg capsule 100 mg PO BID stool sof tener 7 04/18/25 Unknown Rx (Colace) days #14 caps doxepin 10 mg/mL oral concentrate 5 - 10 mg PO QHS staci k 04/18/25 Unknown History naloxegol 25 mg tablet (Movantik) 25 mg PO DAILY 30 da ys #30 tabs 04/18/25 Unknown Rx rosuvastatin 10 mg tablet 10 mg PO QHS hld 04/18/25 Un known History pantoprazole 40 mg tablet,delayed 40 mg PO DAILY 90 da ys #90 tabs 04/22/25 Unknown Rx release (Protonix) polysaccharide iron complex 150 mg 150 mg PO DAILY 90 days #90 caps 04/22/25 Unknown Rx iron capsule (Ferrex) potassium chloride 20 mEq/15 mL 20 meq (15 mL) PO JANE Y 30 days 04/22/25 Unknown Rx oral liquid #450 mL amlodipine 2.5 mg tablet 2.5 mg PO QDAY bp 05/13/25 U nknown History lisinopril 10 mg tablet 10 mg PO QDAY blood pressure 05/13/25 Unknown History capsaicin 0.1 % topical cream 1 applic topical TID #60 grams 05/19/25 Unknown Rx misoprostol 100 mcg tablet PO 05/19/25 Unknown History Allergy/AdvReac Type Severity Reaction Status Date / Time colestipol (From Colestid) Allergy Mild unknown Verified 06/03/25 02:30 pregabalin (From Lyrica) Allergy Mild Hives Verified 06/03/25 02:30 amitriptyline Allergy Rash Verified 06/03/25 02:30 temazepam (From Restoril) AdvReac Mild Nausea/Vom/ Verified 06/03/25 02:30 Diarrhea Antihistamines - Alkylamine AdvReac Nausea/Vom/ Verified 06/03/25 02:30 Diarrhea Antihistamines - Ethanolamine AdvReac Nausea/Vom/ Verified 06/03/25 02:30 Diarrhea Antihistamines - AdvReac Nausea/Vom/ Verified 06/03/25 02:30 Ethylenediamine Diarrhea Antihistamines - Piperazine AdvReac Nausea/Vom/ Verified 06/03/25 02:30 Diarrhea Antihistamines - Piperidine AdvReac Nausea/Vom/ Verified 06/03/25 02:30 Diarrhea aspirin AdvReac I'M ON Verified 06/03/25 02:30 BLOOD THINNERS codeine AdvReac Nausea Verified 06/03/25 02:30 Corticosteroids AdvReac Upset Verified 06/03/25 02:30 (Glucocorticoids) Stomach morphine AdvReac Nausea Verified 06/03/25 02:30 Ricldvo-EZJ-GlH Reductase AdvReac Nausea Verified 06/03/25 02:30 Inhibitor (Isfndfo-Wic-Jfp Reductase Inhibitor) Family History Mother Cancer CAD (coronary artery disease) Brain tumor Grandfather CVA (cerebral vascular accident) Father CAD (coronary artery disease) Ruptured abdominal aortic aneurysm (AAA) Sister Brain aneurysm Surgical History History of coronary artery stent placement History of appendectomy History of cholecystectomy History of angioplasty of peripheral vessel (07/11/19) Stenosis of left subclavian artery History of left heart catheterization (01/25/15) S/P coil embolization of cerebral aneurysm History of angioplasty of peripheral vessel History of right-sided carotid endarterectomy History of left-sided carotid endarterectomy History of partial thyroidectomy (11/30/05) History of hemorrhoidectomy History of hysterectomy History of section Brain aneurysm Fracture of right lower leg S/P insertion of iliac artery stent History of left breast biopsy H/O hemorrhoidectomy S/P hysterectomy H/O: S/P thyroidectomy Social History household members: none housing: apartment Smoking Status: Current every day smoker tobacco type: cigarettes alcohol intake: never caffeine: Yes Type: coffee and tea Review of Systems (Anesthesia) ROS Narrative System reviewed and no additional complaints, except as documented.
--- NOTE | 2025-06-05 16:05 | PCM.POST.ANE ---
Anesthesia: Postop Eval I Current Vital Signs Temperature: 98 F Pulse Rate: 75 Blood Pressure: 121/72 Respiratory Rate: 16 Pulse Ox: 100 Oxygen Delivery Method: Room Air Assessment Airway patent: No Spontaneous unlabored respirations: No Mental status: Awake and Calm nausea: No Vomiting: No Anesthesia Complication: No Fluid Hydration Crystalloid volume administer (ml): 100 Total IV fluid infused: 100 Progress Note Anesthesia document: Postop Eval 1 completed: No
--- NOTE | 2025-06-05 16:09 | POSTOPAN2_ITS ---
Anesthesia Postop Eval I Sum Postop Eval Completion status Anesthesia document: Postop Eval 1 completed: No Anesthesia Postop Eval I Summary Anesthesia Postop Eval I Summary: Anesthesia Postop Eval I: Assessment Summary Airway patent No 06/05/25 16:05 BOOM [email or web address] Spontaneous unlabored No 06/05/25 16:05 BOOM CAT [email or web address].MDOT respirations Mental status Awake,Calm 06/05/25 16:05 BOOM CAT [email or web address].MDOT nausea No 06/05/25 16:05 BOOM CAT OPERATOR.MDOT Vomiting No 06/05/25 16:05 BOOM CAT [email or web address].[email or web address] Anesthesia Postop Eval I: Fluid Summary Crystalloid volume administer 100 06/05/25 16:05 BOOM CAT [email or web address].MDOT (ml) Colloids volume administered ( ml) Blood Product volume administered (ml) Total IV fluid infused 100 06/05/25 16:05 BOOM CAT [email or web address].[email or web address] Anesthesia Postop Eval I: Summary Notes Anesthesia Complication No 06/05/25 16:05 BOOM CAT [email or web address].[email or web address] Anesthesia Complication Comment: Post-operative progress note Anesthesia: Postop Eval II Evaluation Mental status: Awake and Calm Pain Level: 0 nausea: No Vomiting: No Complications Anesthesia Complication: No
--- NOTE | 2025-06-05 16:09 | PCM.POSTANE2 ---
Anesthesia Postop Eval I Sum Postop Eval Completion status Anesthesia document: Postop Eval 1 completed: No Anesthesia Postop Eval I Summary Anesthesia Postop Eval I Summary: Anesthesia Postop Eval I: Assessment Summary Airway patent No 06/05/25 16:05 CAN [email or web address] [email or web address] Spontaneous unlabored No 06/05/25 16:05 CAN [email or web address] [email or web address].MDOT respirations Mental status Awake,Calm 06/05/25 16:05 CAN [email or web address] [email or web address] nausea No 06/05/25 16:05 CAN [email or web address] [email or web address].MDOT Vomiting No 06/05/25 16:05 CAN [email or web address] [email or web address] Anesthesia Postop Eval I: Fluid Summary Crystalloid volume administer 100 06/05/25 16:05 CAN [email or web address] [email or web address].MDOT (ml) Colloids volume administered ( ml) Blood Product volume administered (ml) Total IV fluid infused 100 06/05/25 16:05 CAN [email or web address] [email or web address] Anesthesia Postop Eval I: Summary Notes Anesthesia Complication No 06/05/25 16:05 CAN [email or web address].[email or web address] Anesthesia Complication Comment: Post-operative progress note Anesthesia: Postop Eval II Evaluation Mental status: Awake and Calm Pain Level: 0 nausea: No Vomiting: No Complications Anesthesia Complication: No
--- NOTE | 2025-06-05 16:12 | OP.CCLET_ITS ---
06/05/2025 Daron Benton [address] [place] [address] Re : Upper GI endoscopy procedure for Angélica Sanaz Dear Dr. Benton This procedure was performed on Thursday, June 05, 2025. My impressions and recommendations are as follows: Impressions : - No specimens collected. Recommendations : - Discharge patient to home [Means]. - Resume previous diet. - Continue present medications. My findings are described in the full procedure note, which is enclosed. If I can be of further assistance, please feel free to contact me at . Sincerely, Kevin Gonzalez, 06/05/2025 4:11:20 PM This report has been signed electronically.
--- NOTE | 2025-06-05 16:12 | OP.EGD_ITS ---
Patient Name: Angélica Yo Procedure Date: 06/05/2025 3:45 PM Date of : 1955 Age: 69 Procedure: Upper GI endoscopy Indications: Acute post hemorrhagic anemia, Iron deficiency anemia, Recent gastrointestinal bleeding Providers: Kevin Gonzalez DO Medicines: Monitored Anesthesia Care Patient Profile: This is a 69 year old female. Refer to note in patient chart for documentation of history and physical. Patient has symptoms. Complications: No immediate complications. Procedure: Pre-Anesthesia Assessment: - Prior to the procedure, a History and Physical was performed, and patient medications and allergies were reviewed. The patient is competent. The risks and benefits of the procedure and the sedation options and risks were discussed with the patient. All questions were answered and informed consent was obtained. Patient identification and proposed procedure were verified by the physician in the pre-procedure area. Mental Status Examination: alert and oriented. Airway Examination: normal oropharyngeal airway and neck mobility. Respiratory Examination: clear to auscultation. CV Examination: normal. ASA Grade Assessment: II - A patient with mild systemic disease. After reviewing the risks and benefits, the patient was deemed in satisfactory condition to undergo the procedure. The anesthesia plan was to use monitored anesthesia care (MAC). Immediately prior to administration of medications, the patient was re-assessed for adequacy to receive sedatives. The heart rate, respiratory rate, oxygen saturations, blood pressure, adequacy of pulmonary ventilation, and response to care were monitored throughout the procedure. The physical status of the patient was re-assessed after the procedure. After obtaining informed consent, the endoscope was passed under direct vision. Throughout the procedure, the patient's blood pressure, pulse, and oxygen saturations were monitored continuously. The Endoscope was introduced through the mouth, and advanced to the second part of duodenum. The upper GI endoscopy was accomplished without difficulty. The patient tolerated the procedure well. Scope In: 3:58:53 PM Scope Out: 4:02:18 PM Total Procedure Duration Time 0 hours 3 minutes 25 seconds Findings: The examined esophagus was normal. The entire examined stomach was normal. One non-bleeding linear gastric ulcer with no stigmata of bleeding was found in the prepyloric region of the stomach. The lesion was 6 mm in largest dimension. Coagulation for bleeding prevention using heater probe was successful. Estimated blood loss was minimal. Three 5 mm angiodysplastic lesions with bleeding were found in the fourth portion of the duodenum. Coagulation for hemostasis using heater probe was successful. Estimated blood loss was minimal. Impression: - No specimens collected. Recommendation: - Discharge patient to home [Means]. - Resume previous diet. - Continue present medications. Procedure Code(s): --- Professional --- 21084, Esophagogastroduodenoscopy, flexible, transoral; with control of bleeding, any method CPT copyright 2021 [employer]. All rights reserved. The codes documented in this report are preliminary and upon patent chemist review may be revised to meet current compliance requirements. Kevin Gonzalez DO 06/05/2025 4:11:20 PM This report has been signed electronically. Number of Addenda: 0 Note Initiated On: 06/05/2025 3:45 PM
[2025-06-05] MEDS: Ensure Plus High Protein 120 ML LIQUID PO (16:47)
[2025-06-05] MEDS: MELATONIN 3 MG TABLET PO (21:37)
[2025-06-06] VITALS (7 sets, daily range): BP systolic 122–167; BP diastolic 81–92; PULSE 69–97; RESP 16–20; TEMP 36–36.8; O2SAT 95–99; BMI 17.6
[2025-06-06] MEDS: HYDROmorphone 0.5 MG/0.5 ML SYRINGE IV (03:58)
[2025-06-06] MEDS: 0.9% Saline Lock 10 ML Syringe IV (03:58)
[2025-06-06 07:20] LABS: Hematocrit 26.8 % (37-47); Hemoglobin 8.4 g/dL (12.0-15.0); Immature Granulocytes Count 0.040 X10^3/uL (0.0-0.0); Mean Corp Hgb Conc 31.3 g/dL (32-36); Mean Corpuscular Volume 82.2 fL (81-99); Mean Platelet Vol. 10.2 fl (6.2-12.0); NRBC Flagged by Analyzer 0 % (0-5); Platelet Count 122 K/mm3 (150-450); RBC Distribution Width CV 18.3 % (11.6-14.6); RBC Distribution Width SD 54.3 fl (35.1-43.9); Red Blood Count 3.26 M/mm3 (4.2-5.4); White Blood Count 6.9 K/mm3 (4.4-11.0)
[2025-06-06 07:32] LABS: Anion Gap 9 (5-15); BUN 14 mg/dL (4-19); BUN/Creat Ratio 13.9 RATIO (10-20); Calcium,Total 7.9 mg/dL (7.6-11.0); Carbon Dioxide 26.1 mmol/L (21.0-32.0); Chloride 104 mmol/L (98-108); Estimated Creatinine Clearance 40.15 ml/min (50-250); Glucose 84 mg/dL (70-99); Potassium 3.3 mmol/L (3.3-5.1)
[2025-06-06] MEDS: Potassium Chloride Oral Soln 20 MEQ/15 ML UDC PO (09:16)
[2025-06-06] MEDS: Pantoprazole Sodium 40 MG in 0.9% Normal Saline (100mL MB+) 100 ML 300 MG IV ×2 (09:17→21:00)
[2025-06-06] MEDS: Cholecalciferol (Vit D3) 125 MCG CAPSULE (5,000 UNITS) PO (09:17)
--- NOTE | 2025-06-06 12:08 | PCM.PN.HOSP ---
Reason for Visit Chief Complaint: Bilateral lower extremities swelling Subjective Subjective Patient underwent EGD the day prior results are as below. Patient remains on continuous telemetry monitoring and was found to be in A-fib with slow ventricular response and had some sinus pauses. Objective Data Objective Data Vital Signs: Vital Signs Temp Pulse Resp BP Pulse Ox O2 Del Method O2 Flow Rate 97.8 F 97 18 141/92 H 98 Room Air 2 06/06/25 09:13 06/06/25 09:13 06/06/25 09:13 06/06/25 09:13 06/06/25 09:13 06/06/25 10:00 06/06/25 03:35 Oxygen Flow Rate (L/min) 2 Oxygen Delivery Method Room Air Weight: 48.1 kg Body Mass Index (BMI) 17.6 Intake & Output: Intake and Output for Last 24 Hours 06/04/25 06/05/25 06/06/25 23:59 23:59 23:59 Intake Total 1350 / 1350 1065.75 / 1185.75 340 / 340 Output Total 700 / 700 800 / 800 Balance 650 / 650 265.75 / 385.75 340 / 340 Medical Nutrition Assessment Dietitian: Malnutrition Criteria Met Start: 06/03/25 14:52 Freq: Status: Active Protocol: Document 06/03/25 14:52 SB (Rec: 06/03/25 14:52 SB [id number]) Nutrition Malnutrition Evidence of Yes Malnutrition Exists Malnutrition (severe Chronic ): Evidenced By Suboptimal Energy Intake (Moderate),Weight Loss (Severe ) Clinical Problem Chronic Disease or Condition Related Malnutrition Etiology moderate to severe malnutrition related to inadequate oral/energy intake Signs/Symptoms as evidenced by PO meeting <50% of estimated nutrition needs x 2-3 days and 9% unintentional weight loss x 5 months. Status Active Problem Recommendation Dietitian Recommend advanced diet as tolerated to liberal regular Recommendations/ . Changes Continue 120ml EPHP TID with medpass. Will monitor weight trends. Lab / Micro Data 06/06/25 06:10 06/06/25 06:10 Labs: Laboratory Results - last 24 hr 06/03/25 03:20: Crossmatch See Detail 06/06/25 06:10: WBC 6.9, RBC 3.26 L, Hgb 8.4 L, Hct 26.8 L, MCV 82.2, MCH 25.8 L, MCHC 31.3 L, RDW Std Deviation 54.3 H, RDW Coeff of David 18.3 H, Plt Count 122 L, MPV 10.2, Immature Gran % (Auto) 0.600, Neut % (Auto) 65.3, Lymph % (Auto) 19.0, [place] % (Auto) 10.7 H, Eos % (Auto) 3.4, Baso % (Auto) 1.0, Absolute Neuts (auto) 4.5, Absolute Lymphs (auto) 1.30, Nucleated RBC % 0, Sodium 139, Potassium 3.3, Chloride 104, Carbon Dioxide 26.1, Anion Gap 9, BUN 14, Creatinine 0.99, Estim Creat Clear Calc 40.15 L, Est GFR (MDRD) Non-Af 61, BUN/Creatinine Ratio 13.9, Glucose 84, Calcium 7.9 Micro: Microbiology 06/03/25 03:39 Stool Stool Occult Blood (CARMEN) - Final Physical Exam Narrative GENERAL: Much more cooperative compared to previous day HEENT: Atraumatic; normocephalic EYES; Anicteric, pallor of the conjunctiva NECK; supple, normal thyroid, RESPIRATORY: Diminished to auscultation CARDIOVASCULAR: Regular S1 S2, GI: soft, normoactive bowel sounds, : No Renal angle tenderness; EXTREMITIES: No edema, no clubbing, MUSCULOSKELETAL: no muscle wasting NEURO: Awake; no lateralizing signs. SKIN: No Rash PSYCH; patient is tearful Assessment & Plan Assessment/Plan (1) Anemia: (2) Congestive heart failure: PLAN: Plan Patient is a 69-year-old lady who presented with swelling involving both lower extremities found to have hemoglobin of 5.2 1. Acute congestive heart failure with preserved ejection fraction ? Pressure titrated by patient's severe anemia. Patient has been admitted to monitored bed placed on strict input and output, daily weights, fluid restriction IV furosemide ? 06/04/2025; echo from 01/11/2025 demonstrated EF of 70%. With patient blood pressure running on the low side decreased furosemide dose 2. Acute symptomatic anemia ? Patient hemoglobin on admission was 5.2. 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 Treated with a heater probe. Colonoscopy revealed One 10 mm polyp at the splenic flexure, removed with a hot snare. Resected and retrieved. - Diverticulosis in the recto-sigmoid colon, in the sigmoid colon, in the descending colon and in the ascending colon. - A few ulcers in the rectum. Biopsied. An order was given for patient to be transfused with 2 unit PRBC. Admitted to monitored bed consultation placed to Dr. Gonzalez with GI from the emergency department. Patient was kept n.p.o. pending repeat endoscopic evaluation ? 06/04/2025 patient hemoglobin up to 7.6 following transfusion with 2 unit PRBC ? 05/19/2025;Patient became very restless and delirious the day prior did receive Ativan. By the time patient arrived for the EGD she could not give the consent. Seen this a.m. much more awake and interactive. Hemoglobin down to 6.9 an additional unit given. Patient EGD scheduled for this afternoon (consent has been signed) ? 06/06/2025; EGD performed on 06/05/2025 results as below One non-bleeding linear gastric ulcer with no stigmata of bleeding was found in the prepyloric region of the stomach. The lesion was 6 mm in largest dimension. Coagulation for bleeding prevention using heater probe was successful. Estimated blood loss was minimal. Three 5 mm angiodysplastic lesions with bleeding were found in the fourth portion of the duodenum. Coagulation for hemostasis using heater probe was successful. Estimated blood loss was minimal. Patient hemoglobin up to 8.4 3. Paroxysmal A-fib ? Rate controlled on systemic anticoagulation with apixaban held given her presentation. Patient apixaban has been held for a week following her admission after her GI bleed. Given the recurrent nature of symptoms patient may not be a good candidate for systemic anticoagulation ? 06/06/2025; patient remains on telemetry monitoring was found to have A-fib with slow ventricular response as well as sinus pauses. Patient currently not on any rate controlling agents. Will continue with monitoring and if there is any recurrence to consult cardiology 4. Hypertension - Blood pressure controlled, home medications continued with dose adjustment as needed ? 06/04/2025; held patient antihypertensives given her relatively low blood pressure patient did receive fluid resuscitation 5. Hypothyroidism ? Patient is on levothyroxine did continue with home dose 6. Peripheral arterial disease ? With history of bilateral carotid artery stenosis, peripheral vascular occlusive disease. Patient was on systemic anticoagulation with apixaban held given about reasons 7. Dyslipidemia ?Patient is on statin therapy, continued at home dose 8. Multiple sclerosis ? Complicating patient's care patient is on baclofen for muscle relaxation 9. Chronic pain syndrome ? Restarted patient home pain regimen 10. DVT prophylaxis ? Patient is on apixaban held given his GI bleed 11. Hypokalemia ? Corrected per protocol, repeat potassium ordered in 4 hours to assess for response to therapy 12. <del>S</del>severe malnutrition -Related to: inadequate oral/energy intake As evidenced by: PO meeting <50% of estimated nutrition needs x 2-3 days and 9% unintentional weight loss x 5 months. With treatment/resources used including: Recommend advanced diet as tolerated to liberal regular. Continue 120ml EPHP TID with medpass. Will monitor weight trends. 13. Severe agitation ? Patient did receive Ativan 14. Depression with anxiety ? Patient started on low-dose Paxil Time spent in the patient's overall evaluation,decision-making process, review of diagnostic data, adjustment of management, discussion with other providers, nursing nursing and ancillary staff involved in patient's care documentation 40 Minutes Charges/Coding Visit Charges Inpatient E&M: 77056 Subs Hosp L2
[2025-06-07 01:56] VITALS: BP 159/85; PULSE 65; RESP 18; TEMP 36.7
[2025-06-07 06:00] VITALS: BMI 18.3
[2025-06-07 08:00] VITALS: BP 168/74; PULSE 66; RESP 18; TEMP 36.6; O2SAT 99
[2025-06-07] MEDS: Pantoprazole Sodium 40 MG in 0.9% Normal Saline (100mL MB+) 100 ML 330 MG IV ×2 (08:57→22:24)
[2025-06-07] MEDS: Potassium Chloride Oral Soln 20 MEQ/15 ML UDC PO (09:03)
[2025-06-07] MEDS: Cholecalciferol (Vit D3) 125 MCG CAPSULE (5,000 UNITS) PO (09:03)
--- NOTE | 2025-06-07 09:07 | PCM.PN.HOSP ---
Reason for Visit Chief Complaint: Bilateral lower extremities swelling Subjective Subjective Patient seen much more interactive compared to previous day. Hemoglobin up to 9.7. Patient to be assessed for home oxygen prior to discharge. Patient will also be discharged with home health Objective Data Objective Data Vital Signs: Vital Signs Temp Pulse Resp BP Pulse Ox O2 Del Method O2 Flow Rate 98.1 F 65 18 159/85 H 97 Nasal Cannula 2 06/07/25 01:56 06/07/25 01:56 06/07/25 01:56 06/07/25 01:56 06/06/25 21:04 06/07/25 08:00 06/07/25 08:00 Oxygen Flow Rate (L/min) 2 Oxygen Delivery Method Nasal Cannula Weight: 50.1 kg Body Mass Index (BMI) 18.3 Intake & Output: Intake and Output for Last 24 Hours 06/05/25 06/06/25 06/07/25 23:59 23:59 23:59 Intake Total 1065.75 / 1185.75 840 / 840 Output Total 800 / 800 Balance 265.75 / 385.75 840 / 840 Medical Nutrition Assessment Dietitian: Malnutrition Criteria Met Start: 06/03/25 14:52 Freq: Status: Active Protocol: Document 06/03/25 14:52 SB (Rec: 06/03/25 14:52 SB [id number]) Nutrition Malnutrition Evidence of Yes Malnutrition Exists Malnutrition (severe Chronic ): Evidenced By Suboptimal Energy Intake (Moderate),Weight Loss (Severe ) Clinical Problem Chronic Disease or Condition Related Malnutrition Etiology moderate to severe malnutrition related to inadequate oral/energy intake Signs/Symptoms as evidenced by PO meeting <50% of estimated nutrition needs x 2-3 days and 9% unintentional weight loss x 5 months. Status Active Problem Recommendation Dietitian Recommend advanced diet as tolerated to liberal regular Recommendations/ . Changes Continue 120ml EPHP TID with medpass. Will monitor weight trends. Lab / Micro Data 06/07/25 09:30 06/06/25 06:10 Micro: Microbiology 06/03/25 03:39 Stool Stool Occult Blood (CARMEN) - Final Physical Exam Narrative GENERAL: Patient appears anxious HEENT: Atraumatic; normocephalic EYES; Anicteric, pallor of the conjunctiva NECK; supple, normal thyroid, RESPIRATORY: Diminished to auscultation CARDIOVASCULAR: Regular S1 S2, GI: soft, normoactive bowel sounds, : No Renal angle tenderness; EXTREMITIES: No edema, no clubbing, MUSCULOSKELETAL: no muscle wasting NEURO: Awake; no lateralizing signs. SKIN: No Rash PSYCH; depressed Assessment & Plan Assessment/Plan (1) Anemia: (2) Congestive heart failure: PLAN: Plan Patient is a 69-year-old lady who presented with swelling involving both lower extremities found to have hemoglobin of 5.2 1. Acute congestive heart failure with preserved ejection fraction ? Pressure titrated by patient's severe anemia. Patient has been admitted to monitored bed placed on strict input and output, daily weights, fluid restriction IV furosemide ? 06/04/2025; echo from 01/11/2025 demonstrated EF of 70%. With patient blood pressure running on the low side decreased furosemide dose 2. Acute symptomatic anemia ? Patient hemoglobin on admission was 5.2. 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 Treated with a heater probe. Colonoscopy revealed One 10 mm polyp at the splenic flexure, removed with a hot snare. Resected and retrieved. - Diverticulosis in the recto-sigmoid colon, in the sigmoid colon, in the descending colon and in the ascending colon. - A few ulcers in the rectum. Biopsied. An order was given for patient to be transfused with 2 unit PRBC. Admitted to monitored bed consultation placed to Dr. Gonzalez with GI from the emergency department. Patient was kept n.p.o. pending repeat endoscopic evaluation ? 06/04/2025 patient hemoglobin up to 7.6 following transfusion with 2 unit PRBC ? 05/19/2025;Patient became very restless and delirious the day prior did receive Ativan. By the time patient arrived for the EGD she could not give the consent. Seen this a.m. much more awake and interactive. Hemoglobin down to 6.9 an additional unit given. Patient EGD scheduled for this afternoon (consent has been signed) ? 06/06/2025; EGD performed on 06/05/2025 results as below One non-bleeding linear gastric ulcer with no stigmata of bleeding was found in the prepyloric region of the stomach. The lesion was 6 mm in largest dimension. Coagulation for bleeding prevention using heater probe was successful. Estimated blood loss was minimal. Three 5 mm angiodysplastic lesions with bleeding were found in the fourth portion of the duodenum. Coagulation for hemostasis using heater probe was successful. Estimated blood loss was minimal. Patient hemoglobin up to 8.4 3. Paroxysmal A-fib ? Rate controlled on systemic anticoagulation with apixaban held given her presentation. Patient apixaban has been held for a week following her admission after her GI bleed. Given the recurrent nature of symptoms patient may not be a good candidate for systemic anticoagulation ? 06/06/2025; patient remains on telemetry monitoring was found to have A-fib with slow ventricular response as well as sinus pauses. Patient currently not on any rate controlling agents. Will continue with monitoring and if there is any recurrence to consult cardiology 4. Hypertension - Blood pressure controlled, home medications continued with dose adjustment as needed ? 06/04/2025; held patient antihypertensives given her relatively low blood pressure patient did receive fluid resuscitation 5. Hypothyroidism ? Patient is on levothyroxine did continue with home dose 6. Peripheral arterial disease ? With history of bilateral carotid artery stenosis, peripheral vascular occlusive disease. Patient was on systemic anticoagulation with apixaban held given about reasons 7. Dyslipidemia ?Patient is on statin therapy, continued at home dose 8. Multiple sclerosis ? Complicating patient's care patient is on baclofen for muscle relaxation 9. Chronic pain syndrome ? Restarted patient home pain regimen 10. DVT prophylaxis ? Patient is on apixaban held given his GI bleed 11. Hypokalemia ? Corrected per protocol, repeat potassium ordered in 4 hours to assess for response to therapy 12. <del>S</del>severe malnutrition -Related to: inadequate oral/energy intake As evidenced by: PO meeting <50% of estimated nutrition needs x 2-3 days and 9% unintentional weight loss x 5 months. With treatment/resources used including: Recommend advanced diet as tolerated to liberal regular. Continue 120ml EPHP TID with medpass. Will monitor weight trends. 13. Severe agitation ? Patient did receive Ativan 14. Depression with anxiety ? Patient started on low-dose Paxil 15. Physical deconditioning/debility ? Requested for PT OT eval and social welfare research worker to assist with discharge planning. Patient may benefit from going to correction facility Time spent in the patient's overall evaluation,decision-making process, review of diagnostic data, adjustment of management, discussion with other providers, nursing nursing and ancillary staff involved in patient's care documentation 38 Minutes Charges/Coding Visit Charges Inpatient E&M: 77130 Subs Hosp L2
[2025-06-07 09:49] LABS: Hematocrit 31.7 % (37-47); Hemoglobin 9.7 g/dL (12.0-15.0); Mean Corp Hgb Conc 30.6 g/dL (32-36); Mean Corpuscular Volume 84.1 fL (81-99); Mean Platelet Vol. 9.2 fl (6.2-12.0); Platelet Count 134 K/mm3 (150-450); RBC Distribution Width CV 18.6 % (11.6-14.6); RBC Distribution Width SD 57.4 fl (35.1-43.9); Red Blood Count 3.77 M/mm3 (4.2-5.4); White Blood Count 8.1 K/mm3 (4.4-11.0)
[2025-06-07 10:04] VITALS: O2SAT 90; O2SAT 99
[2025-06-07 10:13] LABS: Magnesium 1.8 mg/dL (1.5-2.2)
[2025-06-07 10:14] LABS: Anion Gap 9 (5-15); BUN 16 mg/dL (4-19); BUN/Creat Ratio 16.1 RATIO (10-20); Calcium,Total 8.4 mg/dL (7.6-11.0); Carbon Dioxide 27.2 mmol/L (21.0-32.0); Chloride 102 mmol/L (98-108); Estimated Creatinine Clearance 42.68 ml/min (50-250); Glucose 108 mg/dL (70-99); Potassium 5.1 mmol/L (3.3-5.1)
--- NOTE | 2025-06-07 10:52 | PCM.DC.SUM ---
Providers Date of Admission: 06/03/25 Date of Discharge: 06/07/25 Primary Care Physician: Dr. Daron Benton MD Consultations 06/03/25 08:34 Consult: Gastroenterology Routine Consulting Provider: [facility] Reason for Consult: GI bleed EMERGENT Consult: Yes Notified: Yes Date Notified: 06/03/25 Time Notified: 07:45 Method of Notification: ED Physician Initiated Reason For Visit: ANEMIA Diagnosis Discharge Diagnosis (1) Anemia: Status: Acute Code(s): D64.9 - Anemia, unspecified (2) Congestive heart failure: Status: Acute Code(s): I50.9 - Heart failure, unspecified Plan Patient is a 69-year-old lady who presented with swelling involving both lower extremities found to have hemoglobin of 5.2 1. Acute congestive heart failure with preserved ejection fraction ? Pressure titrated by patient's severe anemia. Patient has been admitted to monitored bed placed on strict input and output, daily weights, fluid restriction IV furosemide ? 06/04/2025; echo from 01/11/2025 demonstrated EF of 70%. With patient blood pressure running on the low side decreased furosemide dose 2. Acute symptomatic anemia ? Patient hemoglobin on admission was 5.2. 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 Treated with a heater probe. Colonoscopy revealed One 10 mm polyp at the splenic flexure, removed with a hot snare. Resected and retrieved. - Diverticulosis in the recto-sigmoid colon, in the sigmoid colon, in the descending colon and in the ascending colon. - A few ulcers in the rectum. Biopsied. An order was given for patient to be transfused with 2 unit PRBC. Admitted to monitored bed consultation placed to Dr. Gonzalez with GI from the emergency department. Patient was kept n.p.o. pending repeat endoscopic evaluation ? 06/04/2025 patient hemoglobin up to 7.6 following transfusion with 2 unit PRBC ? 05/19/2025;Patient became very restless and delirious the day prior did receive Ativan. By the time patient arrived for the EGD she could not give the consent. Seen this a.m. much more awake and interactive. Hemoglobin down to 6.9 an additional unit given. Patient EGD scheduled for this afternoon (consent has been signed) ? 06/06/2025; EGD performed on 06/05/2025 results as below One non-bleeding linear gastric ulcer with no stigmata of bleeding was found in the prepyloric region of the stomach. The lesion was 6 mm in largest dimension. Coagulation for bleeding prevention using heater probe was successful. Estimated blood loss was minimal. Three 5 mm angiodysplastic lesions with bleeding were found in the fourth portion of the duodenum. Coagulation for hemostasis using heater probe was successful. Estimated blood loss was minimal. Patient hemoglobin up to 8.4 3. Paroxysmal A-fib ? Rate controlled on systemic anticoagulation with apixaban held given her presentation. Patient apixaban has been held for a week following her admission after her GI bleed. Given the recurrent nature of symptoms patient may not be a good candidate for systemic anticoagulation ? 06/06/2025; patient remains on telemetry monitoring was found to have A-fib with slow ventricular response as well as sinus pauses. Patient currently not on any rate controlling agents. Will continue with monitoring and if there is any recurrence to consult cardiology ? 06/07/2025; patient carvedilol discontinued on discharge. Apixaban held for 2 weeks to resume on 06/18/2025 4. Hypertension - Blood pressure controlled, home medications continued with dose adjustment as needed ? 06/04/2025; held patient antihypertensives given her relatively low blood pressure patient did receive fluid resuscitation 5. Hypothyroidism ? Patient is on levothyroxine did continue with home dose 6. Peripheral arterial disease ? With history of bilateral carotid artery stenosis, peripheral vascular occlusive disease. Patient was on systemic anticoagulation with apixaban held given about reasons 7. Dyslipidemia ?Patient is on statin therapy, continued at home dose 8. Multiple sclerosis ? Complicating patient's care patient is on baclofen for muscle relaxation 9. Chronic pain syndrome ? Restarted patient home pain regimen 10. DVT prophylaxis ? Patient is on apixaban held given his GI bleed 11. Hypokalemia ? Corrected per protocol, repeat potassium ordered in 4 hours to assess for response to therapy 12. <del>S</del>severe malnutrition -Related to: inadequate oral/energy intake As evidenced by: PO meeting <50% of estimated nutrition needs x 2-3 days and 9% unintentional weight loss x 5 months. With treatment/resources used including: Recommend advanced diet as tolerated to liberal regular. Continue 120ml EPHP TID with medpass. Will monitor weight trends. 13. Severe agitation ? Patient did receive Ativan 14. Depression with anxiety ? Patient started on low-dose Paxil 15. Physical deconditioning/debility ? Requested for PT OT eval and older adult social work specialist to assist with discharge planning. Patient may benefit from going to [facility] facility Time spent in the patient's overall evaluation,decision-making process, review of diagnostic data, adjustment of management, discussion with other providers, nursing nursing and ancillary staff involved in patient's care documentation 38 Minutes Medications at Discharge Home Medications gabapentin 800 mg tablet 800 mg PO TID MS 07/16/18 baclofen 20 mg tablet 20 mg PO Q6H MS 08/11/21 levothyroxine 50 mcg tablet 50 mcg PO DAILY thyroid 08/11/21 oxycodone 10 mg tablet 10 mg PO Q6H PRN pain 05/24/23 dextromethorphan-guaifenesin ER 60 mg-1,200 mg tab,extend release,12hr (Mucinex DM) 1 tab PO Q12H PRN cough/congest 02/19/24 famotidine 40 mg tablet 40 mg PO QDAY PRN indigestion 11/24/24 apixaban 5 mg tablet (Eliquis) 5 mg PO Q12H anticoagulation #180 tabs 03/09/25 Held on 06/07/25. Instructions: Resume on 06/18/25. cholecalciferol (vitamin D3) 125 mcg (5,000 unit) capsule 125 mcg PO DAILY supplement 04/18/25 docusate sodium 100 mg capsule (Colace) 100 mg PO BID stool softener 7 days #14 caps 04/18/25 doxepin 10 mg/mL oral concentrate 5 - 10 mg PO QHS back 04/18/25 naloxegol 25 mg tablet (Movantik) 25 mg PO DAILY 30 days #30 tabs 04/18/25 rosuvastatin 10 mg tablet 10 mg PO QHS hld 04/18/25 pantoprazole 40 mg tablet,delayed release (Protonix) 40 mg PO DAILY 90 days #90 tabs 04/22/25 polysaccharide iron complex 150 mg iron capsule (Ferrex) 150 mg PO DAILY 90 days #90 caps 04/22/25 potassium chloride 20 mEq/15 mL oral liquid 20 meq (15 mL) PO DAILY 30 days #450 mL 04/22/25 amlodipine 2.5 mg tablet 2.5 mg PO QDAY bp 05/13/25 lisinopril 10 mg tablet 10 mg PO QDAY blood pressure 05/13/25 capsaicin 0.1 % topical cream 1 applic topical TID #60 grams 05/19/25 misoprostol 100 mcg tablet PO 05/19/25 food supplemt, lactose-reduced 0.08 gram-1.5 kcal/mL oral liquid (Ensure Plus High Protein) 120 ml PO TIDCM #21,330 mL 06/07/25 pantoprazole 40 mg tablet,delayed release (Protonix) 40 mg PO BID #120 tabs 06/07/25 Physical Exam Narrative GENERAL: Patient appears anxious HEENT: Atraumatic; normocephalic EYES; Anicteric, pallor of the conjunctiva NECK; supple, normal thyroid, RESPIRATORY: Diminished to auscultation CARDIOVASCULAR: Regular S1 S2, GI: soft, normoactive bowel sounds, : No Renal angle tenderness; EXTREMITIES: No edema, no clubbing, MUSCULOSKELETAL: no muscle wasting NEURO: Awake; no lateralizing signs. SKIN: No Rash PSYCH; depressed Medical Records Data Medical Nutrition Assessment Dietitian: Malnutrition Criteria Met Start: 06/03/25 14:52 Freq: Status: Active Protocol: Document 06/03/25 14:52 SB (Rec: 06/03/25 14:52 SB [id number]) Nutrition Malnutrition Evidence of Yes Malnutrition Exists Malnutrition (severe Chronic ): Evidenced By Suboptimal Energy Intake (Moderate),Weight Loss (Severe ) Clinical Problem Chronic Disease or Condition Related Malnutrition Etiology moderate to severe malnutrition related to inadequate oral/energy intake Signs/Symptoms as evidenced by PO meeting <50% of estimated nutrition needs x 2-3 days and 9% unintentional weight loss x 5 months. Status Active Problem Recommendation Dietitian Recommend advanced diet as tolerated to liberal regular Recommendations/ . Changes Continue 120ml EPHP TID with medpass. Will monitor weight trends. Weight / BMI Weight Weight: 50.1 kg Body Mass Index (BMI) 18.3 ABG / Lab / Microbiology Data 06/07/25 09:30 06/07/25 09:30 Laboratory: Laboratory Results - last 24 hr 06/07/25 09:30: WBC 8.1, RBC 3.77 L, Hgb 9.7 L, Hct 31.7 L, MCV 84.1, MCH 25.7 L, MCHC 30.6 L, RDW Std Deviation 57.4 H, RDW Coeff of Dvaid 18.6 H, Plt Count 134 L, MPV 9.2, Sodium 138, Potassium 5.1, Chloride 102, Carbon Dioxide 27.2, Anion Gap 9, BUN 16, Creatinine 0.97, Estim Creat Clear Calc 42.68 L, Est GFR (MDRD) Non-Af 63, BUN/Creatinine Ratio 16.1, Glucose 108 H, Calcium 8.4, Phosphorus 2.6 L, Magnesium 1.8 Microbiology: Microbiology 06/03/25 03:39 Stool Stool Occult Blood ([facility]) - Final D/C Instructions Discharge Activity: Return to Normal Activity Call your doctor if you observe: Fever of 101 or Higher, Shortness of breath, Fainting spells and Chest pain DC O2, CPAP, BIPAP Needs Home O2 Discharge instructions: Yes Type of respiratory needs?: Oxygen Oxygen frequency: With Sleeping Oxygen liters per minute when sleepin DC home with Oxygen: Yes Home O2 MD Review: I have reviewed the oxygen testing, and the patient qualifies for home oxygen equipment and portability. The patient is mobile in the home and the community. Meaningful Use Info Meaningful Use Meaningful Use Diagnoses (Choose all that apply): None applicable Discharge Plan Admission Admit Date/Time: 06/03/25 07:37 Attending Provider: Roman Mckeon Primary Care Provider: Daron Benton Discharge Orders/Prescriptions Prescriptions: New Ensure Plus High Protein 0.08 gram-1.5 kcal/mL Liquid 120 ml PO TIDCM Qty: 66643 0RF pantoprazole [Protonix] 40 mg tablet,delayed release (DR/EC) 40 mg PO BID Qty: 120 0RF Continued gabapentin 800 mg tablet 800 mg PO TID baclofen 20 mg tablet 20 mg PO Q6H levothyroxine 50 mcg tablet 50 mcg PO DAILY Patient Comments: take 1 tablet by mouth once daily oxycodone 10 mg tablet 10 mg PO Q6H PRN Patient Comments: take 1 tab q6 PRN for pain famotidine 40 mg tablet 40 mg PO QDAY PRN (Reason: indigestion) dextromethorphan-guaifenesin [Mucinex DM] 60-1,200 mg tablet extended release 12 hr 1 tab PO Q12H PRN (Reason: cough/congest) doxepin 10 mg/mL concentrate 5 - 10 mg PO QHS cholecalciferol (vitamin D3) 125 mcg (5,000 unit) capsule 125 mcg PO DAILY rosuvastatin 10 mg tablet 10 mg PO QHS polysaccharide iron complex [Ferrex 150] 150 mg iron Capsule 150 mg PO DAILY 90 Days Qty: 90 0RF potassium chloride 20 mEq/15 mL Liquid 20 meq PO DAILY 30 Days Qty: 450 0RF pantoprazole [Protonix] 40 mg tablet,delayed release (DR/EC) 40 mg PO DAILY 90 Days Qty: 90 0RF misoprostol 100 mcg tablet PO capsaicin 0.1 % cream 1 applic topical TID Qty: 60 0RF Rx Instructions: do not wash area for at least 30 min after application docusate sodium [Colace] 100 mg capsule 100 mg PO BID 7 Days Qty: 14 0RF Movantik 25 mg tablet 25 mg PO DAILY 30 Days Qty: 30 0RF Rx Instructions: must be taken on empty stomach; no food 1 hr after or 2-3 hrs before dose amlodipine 2.5 mg tablet 2.5 mg PO QDAY lisinopril 10 mg tablet 10 mg PO QDAY Held Eliquis 5 mg tablet 5 mg PO Q12H Qty: 180 3RF Hold Instructions: Resume on 06/18/25. Discontinued aspirin 81 mg Tablet,Delayed Release (Dr/Ec) 81 mg PO BREAKFAST Qty: 30 2RF carvedilol 3.125 mg tablet 3.125 mg PO BIDCM Qty: 180 3RF Referrals / Follow Up: Daron Benton MD [Primary Care Provider] - Disposition Disposition (needs filled in before D/C Order can be placed): Home Health Service Charges/Coding Visit Charges Inpatient E&M: 70952 Disch Hosp >30min
[2025-06-07] MEDS: Lorazepam 2 MG/ML WCH Syringe 1 MG IV (12:14)
[2025-06-07 15:30] VITALS: BP 163/99; PULSE 86; RESP 20; TEMP 36.6; O2SAT 96
[2025-06-07 16:02] VITALS: PULSE 94
[2025-06-07 16:03] LABS: Red Blood Cells-Urine 0 SEEN /hpf (0-5)
[2025-06-07 16:12] LABS: Color, Urine Yellow (Yellow); Glucose, Dipstick Normal (Normal); Ketone-Dipstick Negative (Negative); Leukocyte Esterase-Dipstick Negative /ul (Negative); Nitrite-Dipstick Negative (Negative); Occult Blood-Urine Negative /ul (Negative); Protein-Dipstick 15 mg/dl (Negative); Specific Gravity, Urine 1.005 (1.002-1.030); Urine Bilirubin Dipstick Negative (Negative)
[2025-06-07 17:36] LABS: Mucous, Urine RARE /hpf (<or=2+); Squamous Epithelial Cells - UA 0-5 SEEN /hpf (5-10)
--- NOTE | 2025-06-07 20:07 | CT_ITS ---
PROCEDURE: BRAIN/HEAD WITHOUT CONTRAST 06/07/2025 REASON FOR EXAM: AMS TECHNIQUE: BRAIN/HEAD WITHOUT CONTRAST Coronal and Sagittal reconstruction series were provided. One or more dose reduction techniques were used (e.g., Automated exposure control, adjustment of the mA and/or kV according to patient size, use of iterative reconstruction technique. RADIATION DOSE SUMMARY: CTDlvol: 45 mGy DLP: 762 mGycm COMPARISON: MRI brain 05/20/2025, CT head 04/21/2025, CTA head and neck 12/03/2023 FINDINGS: Brain: Aneurysm clip results in streak artifact and limits evaluation of the anterior cranial fossa. No definite evidence of acute intracranial hemorrhage, mass effect, or midline shift. There is unchanged hypodensity in the right frontal and left parietal lobes. CSF Spaces: Mild generalized cerebral atrophy Sinuses/Mastoids: Predominantly clear Bones: Calvarium is unremarkable. Sclerosis of the odontoid tip remains unchanged since 2023. Atherosclerotic calcification of the intracranial vasculature. Status post bilateral cataract extraction CT/Brain/Head without Contrast IMPRESSION: 1. No new evidence of an acute intracranial abnormality. 2. 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 Reading Location: [facility]
--- NOTE | 2025-06-07 20:07 | CT_ITS ---
PROCEDURE: CHEST WITHOUT CONTRAST 06/07/2025 REASON FOR EXAM: ASP PNA TECHNIQUE: Chest CT without contrast. Coronal and Sagittal reconstruction series were provided. One or more dose reduction techniques were used (e.g., Automated exposure control, adjustment of the mA and/or kV according to patient size, use of iterative reconstruction technique RADIATION DOSE SUMMARY: CTDlvol: 7.7 mGy DLP: 269 mGycm COMPARISON: Chest radiograph dated 06/03/2025, CT chest on 10/03/2020 FINDINGS: Lymph nodes: Mild thoracic lymphadenopathy may be reactive. Heart and Vasculature: Cardiomegaly with moderate coronary calcifications. No pericardial effusion. Enlarged main pulmonary artery measuring 3.2 cm. Aortic atherosclerosis without aneurysm. Lungs and Airways: Linear nonobstructing debris in the trachea. Apical predominant centrilobular emphysema. Diffuse bronchial wall thickening. Interlobular septal thickening. There is consolidation at the posterior lung bases and near the lingula. There is a focus of air in the left perihilar region measuring 1.2 cm (series 5, image 53), unchanged and possibly a pneumatocele. Pleura: Moderate right and small left pleural effusions. Upper Abdomen: Limited evaluation is unremarkable. Bones: Rightward curvature of the thoracic spine. Multilevel degenerative changes. Spinal stimulator device leads in the thoracic spinal canal. CT/Chest without Contrast IMPRESSION: 1. Interlobular septal thickening with diffuse bronchial wall thickening and c onsolidation at the posterior lung bases, which may represent some combination of pulmonary edema, atelectasis, and/or infectio n/inflammation. 2. Moderate right and small left pleural effusions. 3. Enlarged main pulmonary artery suggestive of pulmonary hypertension. 4. Mild thoracic lymphadenopathy is likely reactive. Reading Location: [id number]
[2025-06-07 23:00] VITALS: BP 136/65; PULSE 57; RESP 12; TEMP 36.3; O2SAT 100
[2025-06-08] VITALS (7 sets, daily range): BP systolic 146–169; BP diastolic 81–94; PULSE 64–89; RESP 18–20; TEMP 36.4–36.7; O2SAT 93–100; BMI 19.0
[2025-06-08 07:01] LABS: Hematocrit 29.5 % (37-47); Hemoglobin 9.0 g/dL (12.0-15.0); Immature Granulocytes Count 0.050 X10^3/uL (0.0-0.0); Mean Corp Hgb Conc 30.5 g/dL (32-36); Mean Corpuscular Volume 85.5 fL (81-99); Mean Platelet Vol. 9.6 fl (6.2-12.0); NRBC Flagged by Analyzer 0 % (0-5); POSITIVE DIFFERENTIAL YES; Platelet Count 109 K/mm3 (150-450); RBC Distribution Width CV 18.8 % (11.6-14.6); RBC Distribution Width SD 59.3 fl (35.1-43.9); Red Blood Count 3.45 M/mm3 (4.2-5.4); White Blood Count 10.1 K/mm3 (4.4-11.0)
[2025-06-08 07:47] LABS: Anion Gap 10 (5-15); BUN 13 mg/dL (4-19); BUN/Creat Ratio 12.1 RATIO (10-20); Calcium,Total 9.0 mg/dL (7.6-11.0); Carbon Dioxide 25.4 mmol/L (21.0-32.0); Chloride 106 mmol/L (98-108); Estimated Creatinine Clearance 41.12 ml/min (50-250); Glucose 157 mg/dL (70-99); Potassium 4.4 mmol/L (3.3-5.1)
--- NOTE | 2025-06-08 09:31 | CASEMGMT ---
Social Work--systems project managergeneral merchandise manager SW received a message from Tena Santoro with [facility], asking for an update. SW left a message back([phone]) letting her know pt has not yet d/c. SW to fax d/c information once pt is d/c: [phone]. DEBI Kendrick
[2025-06-08] MEDS: Pantoprazole Sodium 40 MG in 0.9% Normal Saline (100mL MB+) 100 ML 300 MG IV (10:10)
[2025-06-08] MEDS: Cholecalciferol (Vit D3) 125 MCG CAPSULE (5,000 UNITS) PO (10:10)
[2025-06-08] MEDS: Potassium Chloride Oral Soln 20 MEQ/15 ML UDC PO (11:54)
[2025-06-08] MEDS: Ensure Plus High Protein 120 ML LIQUID PO ×2 (11:54→18:28)
--- NOTE | 2025-06-08 16:28 | CASEMGMT ---
Social Work Consulted by EVERT CHAVARRIA regarding possible need for SNF placement. Patient is not currently receiving PT/OT services, though possible need for intermediate level of care. Patient has reportedly had intermittent confusion. Spoke with provider who reports patient may benefit, for continued monitoring of medication management and stabilization post medication adjustments. Met with patient in room. Introduced to self and role. Patient alert and oriented to person, age, place, month, year, and current global supply chain vice president. Patient reports knowing has had some confusion, and attributes to having bad reaction to medication. Patient reports desire to go home at discharge, and agreeable to [facility]. Reports to have a SUPERVISOR GARMENT MANUFACTURING on Tuesdays and Fridays through [facility]. Agreeable to have this teletypewriter operator speak with son Roberto. Explored whether patient has a POAHC or Living Will, which patient does not. Patient states that wants both children to weigh in on care needs when the time arises - currently though asking SW to communicate with Roberto. Called Roberto who reports will be coming in this evening to visit the patient. Son reports thought if patient's bleeding is under control, patient could try it at home again, though admits had been in discussions with patient about going to a care home before. Reports patient was doing well, so did not pursue this level of care. Son asked about discharge timeframe, which this teletypewriter operator was uncertain. Offered to call son back with updates, though son declined reporting that will be in this evening and finishing up workday. Spoke with physician who indicates patient could discharge home, if not going to a SNF. Met with patient to review. Patient reports wants to talk with Roberto further before making a decision about home versus NF. Offered patient a care home list for patient's geographical region and insurance network, including Medicare start and quality ratings. Patient reviewed the entire list and was able to state several facilities that did not want to go to. Decided on: [facility], [facility], and [facility]. Patient maintains desire to talk with Roberto. Left Rachel note with this teletypewriter operator name/number to call if needed. Updated patient's nurse Aleyda and chargeback analyst Brenda. Discussed with Aleyda, that if patient and son feel nursing facility is the safest, would want to look at PT/OT evaluations to help support need for skilled versus intermediate level of care. Patient reports to need help with showering at home, which the SUPERVISOR GARMENT [employer]URING assist with. Plan: Home with HH through [facility] and the [facility] services through [facility] versus nursing facility stay: skilled versus intermediate level of care. Social Work and RN CM following. -HARMEET Veloz
--- NOTE | 2025-06-08 19:00 | CASEMGMT ---
Social Work Spoke with patient's son Roberto via phone. Roberto witH patient and patient's other son. All in agreement for NF placement, with hopes of this being short term. Choices confirmed, in this order: [facility], and [facility]. Plan: Short term NF placement - skilled versus intermediate level of care. -HARMEET Veloz
--- NOTE | 2025-06-08 19:44 | PN.HOSP_ITS ---
Reason for Visit Chief Complaint: Bilateral lower extremities swelling Subjective Subjective Patient was seen and examined today, she appears frail and weak, I talked her about going to a skilled care facility for short-term rehab services and she was not against this. Her son came in this afternoon and talk with the patient and he agrees that this is the best course. Objective Data Objective Data Vital Signs: Vital Signs Temp Pulse Resp BP Pulse Ox O2 Del Method O2 Flow Rate 98.0 F 80 18 169/94 H 97 Room Air 2 06/08/25 15:29 06/08/25 15:29 06/08/25 15:29 06/08/25 15:29 06/08/25 15:29 06/08/25 15:29 06/08/25 09:28 Oxygen Flow Rate (L/min) 2 Oxygen Delivery Method Room Air Weight: 51.755 kg Body Mass Index (BMI) 19.0 Intake & Output: Intake and Output for Last 24 Hours 06/06/25 06/07/25 06/08/25 23:59 23:59 23:59 Intake Total 840 / 840 340 / 340 1130 / 1130 Output Total 150 / 150 Balance 840 / 840 190 / 190 1130 / 1130 Medical Nutrition Assessment Dietitian: Malnutrition Criteria Met Start: 06/03/25 14:52 Freq: Status: Active Protocol: Document 06/03/25 14:52 SB (Rec: 06/03/25 14:52 SB [id number]) Nutrition Malnutrition Evidence of Yes Malnutrition Exists Malnutrition (severe Chronic ): Evidenced By Suboptimal Energy Intake (Moderate),Weight Loss (Severe ) Clinical Problem Chronic Disease or Condition Related Malnutrition Etiology moderate to severe malnutrition related to inadequate oral/energy intake Signs/Symptoms as evidenced by PO meeting <50% of estimated nutrition needs x 2-3 days and 9% unintentional weight loss x 5 months. Status Active Problem Recommendation Dietitian Recommend advanced diet as tolerated to liberal regular Recommendations/ . Changes Continue 120ml EPHP TID with medpass. Will monitor weight trends. Lab / Micro Data 06/08/25 06:53 06/08/25 06:53 Labs: Laboratory Results - last 24 hr 06/08/25 06:53: WBC 10.1, RBC 3.45 L, Hgb 9.0 L, Hct 29.5 L, MCV 85.5, MCH 26.1 L, MCHC 30.5 L, RDW Std Deviation 59.3 H, RDW Coeff of David 18.8 H, Plt Count 109 L, MPV 9.6, Immature Gran % (Auto) 0.500, Neut % (Auto) 86.9 H, Lymph % (Auto) 5.5 L, Taliaferro % (Auto) 5.2, Eos % (Auto) 1.4, Baso % (Auto) 0.5, Absolute Neuts (auto) 8.8 H, Absolute Lymphs (auto) 0.55 L, Nucleated RBC % 0, Sodium 141, Potassium 4.4, Chloride 106, Carbon Dioxide 25.4, Anion Gap 10, BUN 13, Creatinine 1.04, Estim Creat Clear Calc 41.12 L, Est GFR (MDRD) Non-Af 58 L, BUN/Creatinine Ratio 12.1, Glucose 157 H, Calcium 9.0 Micro: Microbiology 06/03/25 03:39 Stool Stool Occult Blood ([facility]) - Final Radiography Diagnostic Testing: Radiology Impression Brain CT 06/07/25 20:07 IMPRESSION: 1. No new evidence of an acute intracranial abnormality. 2. 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 Reading Location: [facility] Chest CT 06/07/25 20:07 IMPRESSION: 1. Interlobular septal thickening with diffuse bronchial wall thickening and consolidation at the posterior lung bases, which may represent some combination of pulmonary edema, atelectasis, and/or infection/inflammation. 2. Moderate right and small left pleural effusions. 3. Enlarged main pulmonary artery suggestive of pulmonary hypertension. 4. Mild thoracic lymphadenopathy is likely reactive. Reading Location: [facility] Physical Exam Const alert and no apparent distress Constitutional Narrative: Patient appears older than her stated age General Appearance: cooperative, well kempt and well developed Orientation / Consciousness: awake, oriented to person and oriented to place HEENT normocephalic, head/scalp atraumatic and moist oral mucous membranes Eyes PERRL, EOMs intact bilaterally and conjunctivae normal Neck supple, no JVD, thyroid normal and no carotid bruits General: trachea midline Resp normal respiratory effort, no retractions, no use of accessory muscles and clear to auscultation bilaterally Auscultation: Negative for rales, rhonchi or wheezes Cardio regular rate, regular rhythm, S1 normal heart sound, S2 normal heart sound, no murmurs, no rub and no gallops GI normal to inspection, nondistended, normoactive bowel sounds, soft to palpation, non-tender and non-distended Extremity no clubbing, cyanosis or edema Skin no rashes or lesions noted General Skin Exam: no breakdown Neuro CN's II-XII intact bilaterally, moves all extremities, no focal motor deficits and no sensory deficits noted Sensorium / Orientation: awake, alert, oriented to person and oriented to place Speech: speech normal Psych Psych Narrative: Patient has flat affect Assessment & Plan Assessment/Plan (1) Congestive heart failure: PLAN: Plan 1. Acute right-sided heart failure-I have decided to place the patient back on diuretics, I do not think she had diastolic congestive heart failure. #2 acute anemia secondary to acute GI blood loss exacerbated by use of chronic anticoagulants-patient is off anticoagulation at the present time, hemoglobin appears to be stable at this time, continue PPI #3 chronic obstructive pulmonary disease-continue present medication, complicates care, management, recovery, and prognosis #4 paroxysmal atrial fibrillation-again patient is off of anticoagulation at this point due to her GI bleed #5 hyperlipidemia-patient is on a statin presently #6 hypothyroidism-patient is on Synthroid #7 the patient's gabapentin to 300 mg and I have elected to decrease the patient's baclofen to 10 mg 3 times daily due to the fact nursing has reported periods of confusion with the patient. #8 acute on chronic debility-PT and OT will continue to see the patient, she will need temporary placement in [facility] facility for short-term skilled services Total clinical time spent by myself addressing the patient's medical issues, reviewing all of her data, and collaborating with patient's care team: 50 minutes Charges/Coding Visit Charges Inpatient E&M: [id number] [facility] L3
[2025-06-08] MEDS: Pantoprazole Sodium 40 MG in 0.9% Normal Saline (100mL MB+) 100 ML 330 MG IV (22:46)
[2025-06-08] MEDS: 0.9% Saline Lock 10 ML Syringe IV (22:53)
[2025-06-09 01:59] VITALS: PULSE 54
[2025-06-09 05:20] VITALS: BP 178/75; PULSE 62; RESP 18; TEMP 36.4; O2SAT 100
[2025-06-09] MEDS: 0.9% Saline Lock 10 ML Syringe IV ×2 (05:25→11:39)
[2025-06-09 05:43] VITALS: BMI 18.1
--- NOTE | 2025-06-09 06:35 | NURSING ---
Patient wanted oxy in addition to scheduled Gabapentin and Baclofen. This RN said would round around 0630 and give the oxy if the patient was still awake. Patient assured this RN that she would be awake because of her pain. Patient snoring at this time. Not awakend for pain meds.
[2025-06-09 07:07] LABS: Hematocrit 26.7 % (37-47); Hemoglobin 8.2 g/dL (12.0-15.0)
--- NOTE | 2025-06-09 08:52 | CASEMGMT ---
Addendum entered by Dena Torres 06/09/25 11:14: Both [facility] and [facility] have accepted. [facility]OC is [facility]. Both snfs updated and [facility] asked to submit for skilled or intermediate loc (whichever they feel appropriate). Dena Torres DC Planning Asst Original Note: Discharge Planning SNF referral sent to [facility] and [facility]. Dena Torres DC Planning Asst.
[2025-06-09 09:31] VITALS: BP 131/83; PULSE 64; RESP 14; TEMP 36.6; O2SAT 100
[2025-06-09] MEDS: Cholecalciferol (Vit D3) 125 MCG CAPSULE (5,000 UNITS) PO (09:51)
[2025-06-09] MEDS: 0.9% Normal Saline (250mL Bag) 250 ML 15 ML IV (11:39)
--- NOTE | 2025-06-09 11:47 | CASEMGMT ---
Social Work Updated patient that her first choice, [facility], has accepted and is starting insurance authorization. Iniated 6999 convalescent form in the [facility]. Confirmed with patient age of MS diagnosis, as this is needed for 7000. Patient states was diagnosed in her 30's. Plan: [facility], pending insurance authorization. Social Work to follow. -HARMEET Veloz
[2025-06-09] MEDS: Pantoprazole Sodium 40 MG in 0.9% Normal Saline (100mL MB+) 100 ML 300 MG IV (11:53)
--- NOTE | 2025-06-09 15:20 | CASEMGMT ---
Discharge Planning [facility] has obtained auth to admit. SW updated. Dena Torres DC Planning Asst.
--- NOTE | 2025-06-09 15:32 | PCM.TXEXTCAR ---
Diet Diet Order/Speech Therapy: INPATIENT Hospital Diet / Speech Therapy Order(s) 06/06/25 09:05 Diet: Regular - General Food consistency:: Easy to Chew Routine Orders/Code Status Routine Lab Work: CBC (in 5 days) Code Status: Full Code DC O2, CPAP, BIPAP needs Home O2 Discharge instructions: Yes Type of respiratory needs?: Oxygen Oxygen frequency: With Sleeping Oxygen liters per minute when sleepin Wound(s) L foot 4th and 5th digit: Wound Type: Abrasion Therapies Weight Bearing: Full weight bearing Physical Therapy: Eval and Treat Occupational Therapy: Eval and Treat Problem/Diagnosis (1) Congestive heart failure: Status: Acute Code(s): I50.9 - Heart failure, unspecified (2) DDD (degenerative disc disease), lumbosacral: Status: Acute Code(s): M51.37 - Other intervertebral disc degeneration, lumbosacral region Plan 1. Acute right-sided heart failure-I have decided to place the patient back on diuretics, I do not think she had diastolic congestive heart failure. #2 acute anemia secondary to acute GI blood loss exacerbated by use of chronic anticoagulants-patient is off anticoagulation at the present time, hemoglobin appears to be stable at this time, continue PPI #3 chronic obstructive pulmonary disease-continue present medication, complicates care, management, recovery, and prognosis #4 paroxysmal atrial fibrillation-again patient is off of anticoagulation at this point due to her GI bleed, I would recommend staying off the anticoagulation for 2 weeks, then a decision would need to be made about resuming it #5 hyperlipidemia-patient is on a statin presently #6 hypothyroidism-patient is on Synthroid #7 Encephalopathy- I have elected to change the patient's gabapentin to 300 mg tid and I have elected to decrease the patient's baclofen to 10 mg 3 times daily due to the fact nursing has reported periods of confusion with the patient. #8 acute on chronic debility-PT and OT will continue to see the patient, she will need [facility] placement in [facility] facility for short-term skilled services #9 gastric ulcer-patient will remain on a PPI #10 alpha 1 antitrypsin deficiency carrier` Total clinical time spent by myself addressing the patient's medical issues, reviewing all of her data, and collaborating with patient's care team: 50 minutes Allergies/Procedures Done in Hospital Allergies colestipol (From Colestid) Allergy (Mild, Verified 06/03/25 02:30) unknown pregabalin (From Lyrica) Allergy (Mild, Verified 06/03/25 02:30) Hives amitriptyline Allergy (Verified 06/03/25 02:30) Rash temazepam (From Restoril) Adverse Reaction (Mild, Verified 06/03/25 02:30) Nausea/Vom/Diarrhea Antihistamines - Alkylamine Adverse Reaction (Verified 06/03/25 02:30) Nausea/Vom/Diarrhea Antihistamines - Ethanolamine Adverse Reaction (Verified 06/03/25 02:30) Nausea/Vom/Diarrhea Antihistamines - Ethylenediamine Adverse Reaction (Verified 06/03/25 02:30) Nausea/Vom/Diarrhea Antihistamines - Piperazine Adverse Reaction (Verified 06/03/25 02:30) Nausea/Vom/Diarrhea Antihistamines - Piperidine Adverse Reaction (Verified 06/03/25 02:30) Nausea/Vom/Diarrhea aspirin Adverse Reaction (Verified 06/03/25 02:30) I'M ON BLOOD THINNERS codeine Adverse Reaction (Verified 06/03/25 02:30) Nausea Corticosteroids (Glucocorticoids) Adverse Reaction (Verified 06/03/25 02:30) Upset Stomach morphine Adverse Reaction (Verified 06/03/25 02:30) Nausea Zmtaiiz-OIA-UeB Reductase Inhibitor (Yofibkh-Vqd-Rlj Reductase Inhibitor) Adverse Reaction (Verified 06/03/25 02:30) Nausea Procedures: None Type of Care/Length of Stay Estimated LOS: Convalescent Care Less Than 30 days Type of Care Needed: Skilled Rehab Potential: Fair Prognosis: Fair Additional Orders/Day of Discharge Day of Discharge: 06/09/25 Dietary and Speech Recommendations Dietitian Recommendations/Changes: Continue Regular diet with [id number] foods; thin liquids Continue 120ml EPHP TID with medpass. Will continue to monitor weight trends. Discharge Plan Admission Admit Date/Time: 06/03/25 07:37 Primary Reason for Your Visit: Right-sided heart failure, acute anemia Attending Provider: Dex Worrell Primary Care Provider: Daron Benton Consulting Providers: Roman Mckeon Instructions Additional Instructions / Restrictions: Consider resuming Eliquis 5 mg bid in two weeks if the patient accepts the risk vs the benefits of the medicine Discharge Orders/Prescriptions Prescriptions: New Ensure Plus High Protein 0.08 gram-1.5 kcal/mL Liquid 120 ml PO TIDCM Qty: 68570 0RF pantoprazole [Protonix] 40 mg tablet,delayed release (DR/EC) 40 mg PO BID Qty: 120 0RF furosemide 40 mg Tablet 40 mg PO BIDLX Qty: 0 0RF baclofen 10 mg Tablet 10 mg PO TID Qty: 0 0RF oxycodone 5 mg Tablet 10 mg PO Q6H PRN PRN (Reason: Pain Score 4-10) 3 Days Qty: 15 0RF quetiapine 25 mg Tablet 50 mg PO QHS Qty: 0 0RF paroxetine HCl 10 mg Tablet 10 mg PO DAILY Qty: 0 0RF potassium chloride 20 mEq Tablet,Er Particles/Crystals 20 meq PO BIDCM Qty: 0 0RF gabapentin 300 mg Capsule 300 mg PO TID Qty: 0 0RF Continued levothyroxine 50 mcg tablet 50 mcg PO DAILY Patient Comments: take 1 tablet by mouth once daily famotidine 40 mg tablet 40 mg PO QDAY PRN (Reason: indigestion) dextromethorphan-guaifenesin [Mucinex DM] 60-1,200 mg tablet extended release 12 hr 1 tab PO Q12H PRN (Reason: cough/congest) doxepin 10 mg/mL concentrate 5 - 10 mg PO QHS cholecalciferol (vitamin D3) 125 mcg (5,000 unit) capsule 125 mcg PO DAILY rosuvastatin 10 mg tablet 10 mg PO QHS polysaccharide iron complex [Ferrex 150] 150 mg iron Capsule 150 mg PO DAILY 90 Days Qty: 90 0RF capsaicin 0.1 % cream 1 applic topical TID Qty: 60 0RF Rx Instructions: do not wash area for at least 30 min after application docusate sodium [Colace] 100 mg capsule 100 mg PO BID 7 Days Qty: 14 0RF amlodipine 2.5 mg tablet 2.5 mg PO QDAY Changed pantoprazole [Protonix] 40 mg tablet,delayed release (DR/EC) 40 mg PO BIDCM Qty: 1 0RF Held Eliquis 5 mg tablet 5 mg PO Q12H Qty: 180 3RF Hold Instructions: Resume on 06/18/25. Discontinued gabapentin 800 mg tablet 800 mg PO TID baclofen 20 mg tablet 20 mg PO Q6H oxycodone 10 mg tablet 10 mg PO Q6H PRN Patient Comments: take 1 tab q6 PRN for pain potassium chloride 20 mEq/15 mL Liquid 20 meq PO DAILY 30 Days Qty: 450 0RF misoprostol 100 mcg tablet PO aspirin 81 mg Tablet,Delayed Release (Dr/Ec) 81 mg PO BREAKFAST Qty: 30 2RF Movantik 25 mg tablet 25 mg PO DAILY 30 Days Qty: 30 0RF Rx Instructions: must be taken on empty stomach; no food 1 hr after or 2-3 hrs before dose carvedilol 3.125 mg tablet 3.125 mg PO BIDCM Qty: 180 3RF lisinopril 10 mg tablet 10 mg PO QDAY Referrals / Follow Up: Daron Benton MD [Primary Care Provider] - Disposition Disposition (needs filled in before D/C Order can be placed): Home Health Service
[2025-06-09] MEDS: Potassium Chloride Oral Tablet 20 MEQ PO (16:20)
--- NOTE | 2025-06-09 16:22 | DS.PCM_ITS ---
Providers Date of Admission: 06/03/25 Date of Discharge: 06/09/25 Primary Care Physician: Dr. Daron Benton MD Consultations 06/03/25 08:34 Consult: Gastroenterology Routine Consulting Provider: [facility] Reason for Consult: GI bleed EMERGENT Consult: Yes MD Notified: Yes Date Notified: 06/03/25 Time Notified: 07:45 Method of Notification: ED Physician Initiated Reason For Visit: ANEMIA Diagnosis Discharge Diagnosis (1) Congestive heart failure: Status: Acute Code(s): I50.9 - Heart failure, unspecified (2) DDD (degenerative disc disease), lumbosacral: Status: Acute Code(s): M51.37 - Other intervertebral disc degeneration, lumbosacral region Plan 1. Acute right-sided heart failure-I have decided to place the patient back on diuretics, I do not think she had diastolic congestive heart failure. #2 acute anemia secondary to acute GI blood loss from gastric ulcer-exacerbated by use of chronic anticoagulants, requiring blood transfusion-patient is off anticoagulation at the present time, hemoglobin appears to be stable at this time, continue PPI #3 chronic obstructive pulmonary disease-continue present medication, complicates care, management, recovery, and prognosis #4 paroxysmal atrial fibrillation-again patient is off of anticoagulation at this point due to her GI bleed, I would recommend staying off the anticoagulation for 2 weeks, then a decision would need to be made about resuming it #5 hyperlipidemia-patient is on a statin presently #6 hypothyroidism-patient is on Synthroid #7 Encephalopathy- I have elected to change the patient's gabapentin to 300 mg tid and I have elected to decrease the patient's baclofen to 10 mg 3 times daily due to the fact nursing has reported periods of confusion with the patient. #8 acute on chronic debility-PT and OT will continue to see the patient, she will need temporary placement in alf facility for short-term skilled services #9 gastric ulcer-patient will remain on a PPI #10 alpha 1 antitrypsin deficiency carrier #11 chronic moderate to severe protein caloric malnutrition related to inadequate oral/energy intake-as evidenced by p.o. meeting less than 50% of estimated nutritional needs x 2 to 3 days and 9% unintentional weight loss x 5 months. Patient was recommended to have a liberal regular diet, 120 mL of EPHP 3 times daily with med Pass was given. Total clinical time spent by myself addressing the patient's medical issues, reviewing all of her data, and collaborating with patient's care team: 50 minutes Medications at Discharge Home Medications levothyroxine 50 mcg tablet 50 mcg PO DAILY thyroid 08/11/21 dextromethorphan-guaifenesin ER 60 mg-1,200 mg tab,extend release,12hr (Mucinex DM) 1 tab PO Q12H PRN cough/congest 02/19/24 famotidine 40 mg tablet 40 mg PO QDAY PRN indigestion 11/24/24 apixaban 5 mg tablet (Eliquis) 5 mg PO Q12H anticoagulation #180 tabs 03/09/25 Held on 06/07/25. Instructions: Resume on 06/18/25. cholecalciferol (vitamin D3) 125 mcg (5,000 unit) capsule 125 mcg PO DAILY supplement 04/18/25 docusate sodium 100 mg capsule (Colace) 100 mg PO BID stool softener 7 days #14 caps 04/18/25 doxepin 10 mg/mL oral concentrate 5 - 10 mg PO QHS back 04/18/25 rosuvastatin 10 mg tablet 10 mg PO QHS hld 04/18/25 polysaccharide iron complex 150 mg iron capsule (Ferrex) 150 mg PO DAILY 90 days #90 caps 04/22/25 amlodipine 2.5 mg tablet 2.5 mg PO QDAY bp 05/13/25 capsaicin 0.1 % topical cream 1 applic topical TID #60 grams 05/19/25 food supplemt, lactose-reduced 0.08 gram-1.5 kcal/mL oral liquid (Ensure Plus High Protein) 120 ml PO TIDCM #21,330 mL 06/07/25 pantoprazole 40 mg tablet,delayed release (Protonix) 40 mg PO BID #120 tabs 06/07/25 baclofen 10 mg tablet 10 mg PO TID #0 tabs 06/09/25 furosemide 40 mg tablet 40 mg PO BIDLX #0 tabs 06/09/25 gabapentin 300 mg capsule 300 mg PO TID #0 caps 06/09/25 oxycodone 10 mg tablet 10 mg PO Q6H PRN pain 20 days #30 tabs 06/09/25 oxycodone 5 mg tablet 10 mg (2 x 5 mg) PO Q6H PRN PRN Pain Score 4-10 3 days #15 tabs 06/09/25 pantoprazole 40 mg tablet,delayed release (Protonix) 40 mg PO BIDCM #1 TAB 06/09/25 paroxetine HCl 10 mg tablet 10 mg PO DAILY #0 tabs 06/09/25 potassium chloride 20 mEq tablet,extended release(part/cryst) 20 meq PO BIDCM #0 tabs 06/09/25 quetiapine 25 mg tablet 50 mg (2 x 25 mg) PO QHS #0 tabs 06/09/25 Hospital Course Operations None Procedures EGD Summary of Care Provided Minutes Spent on Discharge: 31 Hospital Course: This 69-year-old white female was seen in the emergency room at [facility] with a chief complaint of bilateral lower extremity swelling, she was hospitalized in April 2025 at [facility] with symptomatic anemia and underwent an EGD and was found to have multiple nonbleeding angiodysplastic lesions that were treated with a heater probe. Workup in the emergency room this admission showed a hemoglobin of 5.2, chest x-ray revealed a small right pleural effusion, patient was felt to be in congestive heart failure. Patient was admitted to PCU, she was transfused 3 units of packed red blood cells and seen by gastroenterology. There is noted to be a gastric ulcer on EGD, patient was given IV diuresis and her lower extremity edema improved. Patient was seen by PT and OT, it was recommended the patient go to a alf facility for short-term and patient skilled services. [facility] accepted the patient. On 06/09/2025, patient was seen and examined:alert and no apparent distress Constitutional Narrative: Patient appears older than her stated age General Appearance: cooperative, well kempt and well developed Orientation / Consciousness: awake, oriented to person and oriented to place HEENT normocephalic, head/scalp atraumatic and moist oral mucous membranes Eyes PERRL, EOMs intact bilaterally and conjunctivae normal Neck supple, no JVD, thyroid normal and no carotid bruits General: trachea midline Resp normal respiratory effort, no retractions, no use of accessory muscles and clear to auscultation bilaterally Auscultation: Negative for rales, rhonchi or wheezes Cardio regular rate, regular rhythm, S1 normal heart sound, S2 normal heart sound, no murmurs, no rub and no gallops GI normal to inspection, nondistended, normoactive bowel sounds, soft to palpation, non-tender and non-distended Extremity no clubbing, cyanosis or edema Skin no rashes or lesions noted General Skin Exam: no breakdown Neuro CN's II-XII intact bilaterally, moves all extremities, no focal motor deficits and no sensory deficits noted Sensorium / Orientation: awake, alert, oriented to person and oriented to place Speech: speech normal Medical Records Data Medical Nutrition Assessment Dietitian: Malnutrition Criteria Met Start: 06/03/25 14:52 Freq: Status: Active Protocol: Document 06/03/25 14:52 SB (Rec: 06/03/25 14:52 SB [id number]) Nutrition Malnutrition Evidence of Yes Malnutrition Exists Malnutrition (severe Chronic ): Evidenced By Suboptimal Energy Intake (Moderate),Weight Loss (Severe ) Clinical Problem Chronic Disease or Condition Related Malnutrition Etiology moderate to severe malnutrition related to inadequate oral/energy intake Signs/Symptoms as evidenced by PO meeting <50% of estimated nutrition needs x 2-3 days and 9% unintentional weight loss x 5 months. Status Active Problem Recommendation Dietitian Recommend advanced diet as tolerated to liberal regular Recommendations/ . Changes Continue 120ml EPHP TID with medpass. Will monitor weight trends. Weight / BMI Weight Weight: 49.4 kg Body Mass Index (BMI) 18.1 ABG / Lab / Microbiology Data 06/09/25 06:49 06/08/25 06:53 Laboratory: Laboratory Results - last 24 hr 06/09/25 06:49: Hgb 8.2 L, Hct 26.7 L Microbiology: Microbiology 06/07/25 15:45 Urine, Catheterized Urine Culture - Final Culture exhibits no growth. 06/03/25 03:39 Stool Stool Occult Blood (CARMEN) - Final D/C Instructions Call your doctor if you observe: Fever of 101 or Higher, Shortness of breath, Fainting spells and Chest pain DC O2, CPAP, BIPAP Needs Home O2 Discharge instructions: Yes Type of respiratory needs?: Oxygen Oxygen frequency: With Sleeping Oxygen liters per minute when sleepin DC home with Oxygen: Yes Home O2 MD Review: I have reviewed the oxygen testing, and the patient qualifies for home oxygen equipment and portability. The patient is mobile in the home and the community. Meaningful Use Info Meaningful Use Meaningful Use Diagnoses (Choose all that apply): None applicable Discharge Plan Admission Admit Date/Time: 06/03/25 07:37 Primary Reason for Your Visit: Right-sided heart failure, acute anemia Attending Provider: Dex Worrell Primary Care Provider: Daron Benton Consulting Providers: Roman Mckeon Instructions Additional Instructions / Restrictions: Consider resuming Eliquis 5 mg bid in two weeks if the patient accepts the risk vs the benefits of the medicine Discharge Orders/Prescriptions Prescriptions: New Ensure Plus High Protein 0.08 gram-1.5 kcal/mL Liquid 120 ml PO TIDCM Qty: 70510 0RF pantoprazole [Protonix] 40 mg tablet,delayed release (DR/EC) 40 mg PO BID Qty: 120 0RF furosemide 40 mg Tablet 40 mg PO BIDLX Qty: 0 0RF baclofen 10 mg Tablet 10 mg PO TID Qty: 0 0RF oxycodone 5 mg Tablet 10 mg PO Q6H PRN PRN (Reason: Pain Score 4-10) 3 Days Qty: 15 0RF quetiapine 25 mg Tablet 50 mg PO QHS Qty: 0 0RF paroxetine HCl 10 mg Tablet 10 mg PO DAILY Qty: 0 0RF potassium chloride 20 mEq Tablet,Er Particles/Crystals 20 meq PO BIDCM Qty: 0 0RF gabapentin 300 mg Capsule 300 mg PO TID Qty: 0 0RF Continued levothyroxine 50 mcg tablet 50 mcg PO DAILY Patient Comments: take 1 tablet by mouth once daily famotidine 40 mg tablet 40 mg PO QDAY PRN (Reason: indigestion) dextromethorphan-guaifenesin [Mucinex DM] 60-1,200 mg tablet extended release 12 hr 1 tab PO Q12H PRN (Reason: cough/congest) doxepin 10 mg/mL concentrate 5 - 10 mg PO QHS cholecalciferol (vitamin D3) 125 mcg (5,000 unit) capsule 125 mcg PO DAILY rosuvastatin 10 mg tablet 10 mg PO QHS polysaccharide iron complex [Ferrex 150] 150 mg iron Capsule 150 mg PO DAILY 90 Days Qty: 90 0RF capsaicin 0.1 % cream 1 applic topical TID Qty: 60 0RF Rx Instructions: do not wash area for at least 30 min after application docusate sodium [Colace] 100 mg capsule 100 mg PO BID 7 Days Qty: 14 0RF amlodipine 2.5 mg tablet 2.5 mg PO QDAY Changed pantoprazole [Protonix] 40 mg tablet,delayed release (DR/EC) 40 mg PO BIDCM Qty: 1 0RF Held Eliquis 5 mg tablet 5 mg PO Q12H Qty: 180 3RF Hold Instructions: Resume on 06/18/25. Discontinued gabapentin 800 mg tablet 800 mg PO TID baclofen 20 mg tablet 20 mg PO Q6H oxycodone 10 mg tablet 10 mg PO Q6H PRN Patient Comments: take 1 tab q6 PRN for pain potassium chloride 20 mEq/15 mL Liquid 20 meq PO DAILY 30 Days Qty: 450 0RF misoprostol 100 mcg tablet PO aspirin 81 mg Tablet,Delayed Release (Dr/Ec) 81 mg PO BREAKFAST Qty: 30 2RF Movantik 25 mg tablet 25 mg PO DAILY 30 Days Qty: 30 0RF Rx Instructions: must be taken on empty stomach; no food 1 hr after or 2-3 hrs before dose carvedilol 3.125 mg tablet 3.125 mg PO BIDCM Qty: 180 3RF lisinopril 10 mg tablet 10 mg PO QDAY No Action oxycodone 10 mg tablet 10 mg PO Q6H PRN (Reason: pain) 20 Days Qty: 30 0RF Referrals / Follow Up: Daron Benton MD [Primary Care Provider] - Disposition Disposition (needs filled in before D/C Order can be placed): [facility] Charges/Coding Visit Charges Inpatient E&M: 77610 Disch Hosp >30min
--- NOTE | 2025-06-09 16:26 | CASEMGMT ---
Discharge Planning Discharge orders, unsigned med list, and transport time sent to [facility]. Note sent that signed med list will accompany pt. Physicians will transport pt by wheelchair at 6:30p. Nursing, SW, pt, and her son (Roberto) updated. Dena Torres DC Planning Asst.
[2025-06-09] MEDS: Ensure Plus High Protein 120 ML LIQUID PO (16:29)
[2025-06-09 16:33] VITALS: BP 155/94; PULSE 70; RESP 14; TEMP 36.6; O2SAT 99
--- NOTE | 2025-06-09 17:36 | PCM.PN.BLA ---
Progress Note Patient has not had any signs or symptoms of GI bleeding. She is scheduled to go home today. She has been off of anticoagulation and antiplatelet therapy. She has been on PPI therapy and sulcal fate therapy. Physical Exam Const alert, oriented x3, no apparent distress and healthy appearing General Appearance: cooperative GI normal to inspection, nondistended, normoactive bowel sounds, soft to palpation, non-tender and non-distended Percussion: normal to percussion Rectal Exam: deferred Assessment & Plan Assessment/Plan (1) Symptomatic anemia: PLAN: Plan Patient is a 69-year-old lady presented with fatigue found to be anemic with hemoglobin of 5.2. She is on anticoagulation with Eliquis for atrial fibrillation. Hemoglobin was up after blood transfusion. She was explained alternatives, risk and benefits include not withstanding bleeding, infection, sepsis, perforation, need for more surgery . She will have an ASA of 3. 06/04/2025-patient for EGD tomorrow. Keep n.p.o. past midnight. 06/05/2025-patient got transfused 2 units of packed red blood cells and hemoglobin is up to 8.5 from 6.9. She was explained alternatives, risk and benefits occluding withstanding bleeding, fracture, steps, perforation, need for discharge and . She have an ASA of 3. 06/09/2025-patient will need outpatient capsule endoscopy. Visit Charges Inpatient E&M: 21636 [facility] Hosp L3
[2025-06-09 18:11] VITALS: BP 194/97
--- NOTE | 2025-06-09 18:39 | NURSING ---
Report called by this RN to JOSEFINA Kruse at 1839 at [facility].
--- NOTE | 2025-06-10 07:47 | NURSING ---
Medication (movantik) from home was found in drawer after discharge to [facility]. Left message on son Roberto's phone to inform it is at outpatient pharmacy for them to brick picker if able.
--- NOTE | 2025-06-12 07:38 | CASEMGMT ---
Social Work--Direction Home manager case Pt's manager case Tena Maude([phone]) called to inquire when pt was discharged. SW left her a message back letting her know pt went to [facility] on 06/09/25. YAW faxed discharge summary fo [phone]. DEBI Kendrick
== END 2025-06-09 18:32 | disposition skilled nursing facility (03) | DRG 377 ==
LOC: ED 07:47 → PCU 08:01
PROVIDERS: Anesthesiology; Internal Medicine; Internal Medicine Gastroenterology; Admitting Provider Internal Medicine; Emergency Provider Emergency Medicine; PCP Family Medicine; Visit Provider Internal Medicine
PROC: 0DJ08ZZ Inspection of Upper Intestinal Tract, Via Natural or Artificial Opening Endoscopic (ICD-10-PCS; CPT 43235; principal; 2025-06-05 15:55)
DX: K31.811 Angiodysplasia of stomach and duodenum with bleeding (principal); I50.31 Acute diastolic (congestive) heart failure; E44.0 Moderate protein-calorie malnutrition; D62 Acute posthemorrhagic anemia; D68.32 Hemorrhagic disorder due to extrinsic circulating anticoagulants; Z68.1 Body mass index [BMI] 19.9 or less, adult; I50.811 Acute right heart failure; G35 Multiple sclerosis; J44.9 Chronic obstructive pulmonary disease, unspecified; I11.0 Hypertensive heart disease with heart failure; I73.9 Peripheral vascular disease, unspecified; E03.9 Hypothyroidism, unspecified; F32.A Depression, unspecified; K25.9 Gastric ulcer, unspecified as acute or chronic, without hemorrhage or perforation; E88.01 Alpha-1-antitrypsin deficiency; I48.0 Paroxysmal atrial fibrillation; E78.5 Hyperlipidemia, unspecified; F17.210 Nicotine dependence, cigarettes, uncomplicated; I25.10 Atherosclerotic heart disease of native coronary artery without angina pectoris; I25.2 Old myocardial infarction; E87.6 Hypokalemia; F41.9 Anxiety disorder, unspecified; G89.4 Chronic pain syndrome; R45.1 Restlessness and agitation; Z95.5 Presence of coronary angioplasty implant and graft; Z99.81 Dependence on supplemental oxygen; Z79.01 Long term (current) use of anticoagulants; Z79.82 Long term (current) use of aspirin; Z79.890 Hormone replacement therapy; Z79.891 Long term (current) use of opiate analgesic; Z79.899 Other long term (current) drug therapy; Z86.73 Personal history of transient ischemic attack (TIA), and cerebral infarction without residual deficits
CPT/HCPCS: 36415; 70450; 71045; 71250; 80048; 80076; 81001; 82274; 82533; 83735; 83880; 84100; 85014; 85018; 85025; 85027; 85610; 85730; 86850; 86900; 86901; 87086; 94668; 97162; 97166; 97802; 99284; C1889; P9016; P9047; A4216; J1938; J2405

== ENCOUNTER 2025-07-05 20:38 | Emergency (ER) | payer MEDICARE, MEDICAID, SELFPAY ==
[2025-07-05 20:39] VITALS: BP 196/102; PULSE 88; RESP 18; TEMP 36.3; O2SAT 99
--- OUTSIDE RECORDS SUMMARY | 2025-07-05 20:53 | XMS RPT_ITS | CCD ---
Author Organization [facility] Care Team Providers Care General Manager Farm Name Role Phone LYNNE ONOFRE Unavailable Unavailabl e ZHANE PARRA Unavailable Unavailable LYNNE ONOFRE Unavailable Unavailable ZHANE DE Unavailable Unavailable ZHANE DE Unavailable Unavailable Dr. Daron Benton Primary Care Provider [phone] Daron Benton Referring Provider 1([facility])[phone] Kai Jacobson Attending Provider 1([facility])[phone] MARIANA Davenport Attending Provider Dr. Daron Benton Primary Care Provider 1([facility])[phone] Daron Benton Referring Provider 1([facility])[phone] Daron Benton Primary Care Provider 1([facility])[phone] Daron Benton Referring Provider 1([facility])[phone] MARIANA Davenport Attending Provider Dr. Daron Benton Primary Care Provider 1([facility])[phone] Daron Benton Referring Provider 1([facility])[phone] Kai Jacobson Attending Provider 1([facility])[phone] MARIANA Davenport Attending Provider Dr. Orlando Jacob Attending Provider 1([facility])[phone] Daron Benton Primary Care Provider [phone] Daron Benton Referring Provider Dr. Kai Jacobson Attending Provider 1([facility])[phone] MARIANA Davenport Attending Provider Dr. Orlando Jacob Attending Provider 1([facility])[phone] Daron Benton Primary Care Provider 1([facility])[phone] Daron Benton Referring Provider 1([facility])[phone] Kai Jacobson Attending Provider 1([facility])[phone] Daron Benton Primary Care Provider 1([facility])[phone] Orlando Jacob Attending Provider 1([facility])-[phone] Daron Benton Primary Care Provider 1([facility])[phone] Daron Benton Referring Provider 1([facility])[phone] Kai Jacobson Attending Provider 1([facility])[phone] Dr. Gilles Jasso Attending Provider 1([facility])[phone] Dr. Daron Benton Primary Care Provider 1([facility])[phone] Dr. Daron Benton Referring Provider 1([facility])[phone] Kai Jacobson Attending Provider 1([facility]) -[phone] Daron Benton Primary Care Provider 1([facility])[phone] Dr. Daron Benton Primary Care Provider 1([facility])[phone] Daron Benton Referring Provider 1([facility])[phone] Dr. Gilles Jasso Attending Provider 1([facility])[phone] Dr. Orlando Jacob Attending Provider 1([facility])-[phone] Daron Benton Primary Care Provider 1([facility])[phone] Daron Benton Referring Provider 1([facility])[phone] Katia Chi Attending Provider Unavailable Dr. Daron Benton Primary Care Provider 1([facility])[phone] Daron Benton Referring Provider 1([facility])[phone] Katia Chi Attending Provider Unavailable Dr. Kai Jacobson Attending Provider 1([facility])[phone] Lexa PEÑA, MARIANA Cheema Attending Provider 1 RBC 2.97 L Hgb 7.3 L Hct 23.5 L MCV 79.1 L MCH 24.6 L MCHC 31.1 L RDW Std Deviation 50.4 H RDW Coeff of David 17.3 H Plt Count 195 MPV 9.6 Immature Gran % (Auto) 0.500 Neut % (Auto) 79.5 H Lymph % (Auto) 9.5 L Drew % (Auto) 9.4 Eos % (Auto) 0.5 [...] (Auto) Neut % (Auto) Lymph % (Auto) Drew % (Auto) Eos % (Auto) Baso % [...] follows: Interpretation: Sinus Rhythm (Rate is 68. OK interval is 102 ms. Cures duration 82 ms. QT duration 456 ms. QTc is prolonged at 484 ms. [place] is normal. There is no acute ischemic changes noted.) Management Discussion w/another healthcare provider: Hospitalist (Evening hospitalist was paged. Patient will need admission with further workup. She did not receive blood in the emergency department.) Discharge Plan Dx/Rx/DC Orders Clinical Impression: Acute hypotension, Orthostatic hypotension, Acute on chronic anemia, Microcyticanemia, Signs and symptoms of anemia, Symptomatic anemia, 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 seenon residential monitor Disposition Disposition: Acute Care Hospital [facility] Discharge Date/Time: 04/18/25 21:33 What to do if you have Problems For any increased pain, shortness of breath, bleeding, nausea or vomiting, chestpain, or any unexpected problems, contact your Primary Care Provider. Call [facility] ([phone]) or report to the closest Emergency Room. Call 911 if necessary. 04/18/252245 <Electronically signed by Jeffy Willoughby MD> Cosigner Signature (if applicable): CC: Dr. Daron Benton MD ~ Signed [facility] Work Phone: 1([phone]) 125-121605-31-2025 Evaluation note* Diagnosis Onset Date Resolution Status Admit Date Acute on chronic anemia resolved M ay 2024 9:20pm Microcytic anemia resolved March 9:20pm Orthostatic hypotension resolved M ay 2024 9:20pm Signs and symptoms of anemia resolve d April 18, 2025 9:20pm 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 residential monitor resolved April 18, 2025 9 :20pm Symptomatic anemia resolved April 182024 9:20pm Anemia acute May 06 2:10pm Constipation acute May 06, 2 025 2:10pm Anemia acute June 03 7:37am DDD (degenerative disc disease), lumbosacral acute June 03, 2025 7:37am Congestive heart failure resolved June 03, 2025 7:37am Symptomatic anemia resolved May 192024 7:37am [facility] Work Phone: 1(932) 359-418305-30-2025 Radiology Diagnostic study note [facility] Imaging Services [address] [place] [address] Acute Abdomen Inc Chest MR#: [id number] Acct: [id number] Name: ANGÉLICA YO Rep #: [id number] 0 : 1955 F 69 From: Garo Bautista MD PCP: Dr. Daron Benton MD Status: REG ER Study:Acute Abdomen Inc Chest Date of Exam: 04/17/25 Exam# [id number] Ordering Dr: Kari Haynes DO PROCEDURE: ACUTE [...] Abdomen Inc Chest IMPRESSION: Constipation. Reading Location: [id number] CC: Dr. Daron Benton MD; Yasmani Haynes DO ~ Traffic Signal Mechanic: Signed [facility]05-21-2025 History of Present illness Narrative* Lizz Jones APRN - PATIENT CENTERED CARE SPECIALIST - 04/08/2025 2:30 PM EDT Visit type: Established Patient Reason for Visit: Follow-up and Multiple Sclerosis (/) Assessment and Plan 1. Multiple sclerosis (HCC) 2. Dysphasia Subjective HPI: Patient phoned in 3 days ago stating MS flare - affecting speech, swallowing, and VOSS. Went to [facility] about 1 week ago; according to [...] typical MS symptoms Received CT scan at [facility] that she states was normal REVIEW- MS- [...] TSH VITAMIN B12: No results found for: [id number] No results found for: PHENYTOIN, PHENOBARB, VALPROATE, CBMZ No components found for: TOPIRA @RESULTINGLABINFO@ No results found for: LEVETIRACETA, FERRITIN, CRP, DENNIS, ANCA No results found for: CHRISTIANO, IMMUNOGLOBUL, OLIGOBANDS No results found for: ZIT46RV, HEPCAB No results found for: CRP, ANATITER, ANCA FERRITIN: No results found for: FERRITIN ---- ECG 12 lead SINUS BRADYCARDIA PROBABLE LEFT ATRIAL ABNORMALITY No previous ECG available for comparison Electronically Signed On 04-05-2023 7:42:10 EDT by Juvenal Benton @[facility]@ IMPRESSION and PLAN: Problem List Items Addressed [...] family history on file. documented in this [facility]05-21-2025 Instructions* Patient Instructions* ANTWON Harrington CNP - 04/08/2025 2:30 PM EDT Please call [facility] [phone] to schedule the MRI brain before 05/03/25 - this is when the authorization for the MRI expires documented in this [facility]05-15-2025 Radiology Diagnostic study [facility]05-15-2025 Discharge summary Author Nuno Grider [facility] Note Date/Time April 02, 2025 11:43 pm [facility] Medical Records Department [address] [place] [address] Emergency Department Summary 04/02/25 MR#: [id number] Acct: [id number] Name: ANGÉLICA YO Rep #:[id number] : 1955 69 From: Nuno Grider MD PCP: Dr. Daron Benton MD Status:[facility] ER Location: ED HPI History of Present [...] She denies any exacerbating or alleviating factors. [facility] Medical History Hypertensive emergency NSTEMI, initial episode of care Emphysema of lung Smoking greater than 30 pack years New onset atrial fibrillation TOL[place]O (dyspnea on exertion) Atherosclerotic heart disease of [place] coronary artery without angina pectoris Cardiac murmur [...] Stomach morphine AdvReac Nausea Verified 04/02/25 19:26 Qckixbv-ZRJ-YfV Reductase AdvReac Nausea Verified 04/02/25 19:26 Inhibitor (Fhuoljt-Smj-Ksv Reductase Inhibitor) Family History Mother Cancer CAD [...] by him. Once again, Idiscussed with her jpny-ib-azij if she would like to be observed, [...] 80.4 H Lymph % (Auto) 10.5 L Drew % (Auto) 6.6 Eos % (Auto) 1.5 [...] and pelvis. Large colonic stool. Reading Location: [facility] Management Discussion w/another healthcare provider: Hospitalist (Dr. [...] fever, new or worsening symptoms. Print Language: Bahraini Disposition Disposition: Home, Self Care What to do if you have Problems For any increased pain, shortness of breath, bleeding, nausea or vomiting, chestpain, or any unexpected problems, contact your Primary Care Provider. Call [facility] ([phone]) or report to the closest Emergency Room. Call 911 if necessary. 04/02/25 2094 <Electronically signed by Nuno Grider MD> Cosigner Signature (if applicable): CC: Dr. Daron Benton MD ~ Signed [facility] Work Phone: 1(308) 933-128805-15-2025 Hospital Discharge instructions Additional Instructions Follow-up with your neurologist within the next 1 to 2 days. Return with increased weakness, fever, new or worsening symptoms.[facility] Work Phone: 1(912) 155-533304-21-2025 Telephone encounter Note* Telephone Encounter - Maeve [place] - 03/09/2025 11:40 AM EDT Order re faxed to [phone] [facility]. [id number] Miscellaneous Notes* Telephone Encounter - Maeve [place] - 03/09/2025 11:40 AM EDT Order re faxed to [phone] [facility]. * Telephone Encounter - Maria Antonia Kelly - 03/09/2025 11:11 AM EDT Name of caller: Kody Contact phone number: [phone] Relationship to Patient: [facility] Provider: AURORA Jones Practice: [facility] [place] Chief Complaint/Reason for Call: Kody called in requesting patient's MRI order be faxed over to them at fax # [phone]. Please be advised Best time of day caller can be reached: Any Patient advised that office/PCP has 24-48 business hours to return their call: N/A documented in this encounterSAdena [facility] [id number] Telephone encounter Note* Telephone Encounter - Maria Antonia Kelly - 03/09/2025 11:11 AM EDT Name of caller: Kody Contact phone number: [phone] Relationship to Patient: [facility] Provider: AURORA Jones Practice: [facility] [place] Chief Complaint/Reason for Call: Kody called in requesting patient's MRI order be faxed over to them at fax # [phone]. Please be advised Best time of day caller can be reached: Any Patient advised that office/PCP has 24-48 business hours to return their call: N/A [id number] History of Present illness Narrative* Lizz Jones APRN - [facility] - 03/04/2025 10:30 AM EDT Visit type: [...] TSH VITAMIN B12: No results found for: [id number] No results found for: PHENYTOIN, PHENOBARB, VALPROATE, CBMZ No components found for: TOPIRA @RESULTINGLABINFO@ No results found for: LEVETIRACETA, FERRITIN, CRP, DENNIS, ANCA No results found for: CHRISTIANO, IMMUNOGLOBUL, OLIGOBANDS No results found for: BSO32LR, HEPCAB No results found for: CRP, ANATITER, ANCA FERRITIN: No results found for: FERRITIN ---- ECG 12 lead SINUS BRADYCARDIA PROBABLE LEFT ATRIAL ABNORMALITY No previous ECG available for comparison Electronically Signed On 04-05-2023 7:42:10 EDT by Juvenal Benton @[facility]@ IMPRESSION and PLAN: Problem List Items Addressed [...] on @TDNR@ at @NOWNR@ documented in this [facility]04-04-2025 Evaluation note* Diagnosis Onset Date Resolution [...] 18, 2025 9:20pm 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 residential monitor resolved April 18, 2025 9 :20pm Symptomatic anemia resolved April 182024 9:20pm Anemia acute May 06 2:10pm Constipation acute May 06, 2 025 2:10pm [facility] Work Phone: 1(739) 595-636204-04-2025 Evaluation note* Diagnosis Onset Date Resolution Status [...] resolved March 9:20pm Orthostatic hypotension resolved M 2024 9:20pm Signs and symptoms of anemia resolve d April 18, 2025 9:20pm 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 residential monitor resolved April 18, 2025 9 :20pm Symptomatic anemia resolved April 182024 9:20pm Anemia acute May 06 2:10pm Constipation acute May 06, 2 025 2:10pm Anemia acute June 03 7:37am Congestive heart failure acute June 03, 2025 7:37am DDD (degenerative disc disease), lumbosacral acute June 03, 2025 7:37am Symptomatic anemia resolved May 192024 7:37am [facility] Work Phone: 1(865) 292-113302-25-2025 [facility]02-23-2025 Evaluation note* Diagnosis Onset Date Resolution Status Admit Date Atherosclerotic heart diseas e of [place] coronary artery without angina pectoris inactive January [...] 18, 2025 9:20pm 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 residential monitor resolved April 18, 2025 9 :20pm Symptomatic anemia resolved April 182024 9:20pm [facility] Work Phone: 1(573) 388-202102-05-2025 Evaluation note* Diagnosis Onset Date Resolution Status Admit Date Nrakq-7-jpvnivizdiv deficien cy carrier acute December 24 1:52pm Hypoxemia chronic December 24, 2024 1:52pm Emphysema of lung inactive 2024 1:52pm Nicotine dependence, cigarettes, uncomplicated inactive 2024 1:52pm Smoking greater than 30 pack years inactive December 24 1:52pm Atherosclerotic heart diseas e of [place] coronary artery without angina pectoris inactive January [...] anemia acute March 9:20pm Orthostatic hypotension acute 2024 9:20pm Signs and symptoms of anemia acute April 18, 2025 9:20pm 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 residential monitor acute April 18, 2025 9 :20pm Symptomatic anemia acute April 182024 9:20pm Acute on chronic anemia chronic 2024 9:20pm [facility] Work Phone: 1(123) 123-592701-31-2025 Evaluation note* Diagnosis Onset Date Resolution Status Admit Date Mitral stenosis acute November 212024 1:16pm Bilateral carotid artery stenosis chronic December 19 1:16pm Essential (primary) hypertension inactive December 19 1:16pm PAF (paroxysmal atrial fibrillation) inactive December 19 1:16pm Peripheral vascular occlusiv e disease inactive December 19 1:16pm Qilfb-5-iwxwtjpgoxl deficien cy carrier acute December 24 1:52pm Hypoxemia chronic December 24, 2024 1:52pm Emphysema of lung inactive 2024 1:52pm Nicotine dependence, cigarettes, uncomplicated inactive 2024 1:52pm Smoking greater than 30 pack years inactive December 24 1:52pm Atherosclerotic heart diseas e of [place] coronary artery without angina pectoris inactive January [...] e disease inactive February 20, 2025 1:14pm [facility] Work Phone: 1(190) 600-692701-31-2025 Evaluation note* Diagnosis Onset Date Resolution Status Admit Date Mitral stenosis acute November 212024 1:16pm Bilateral carotid artery stenosis chronic December 19 1:16pm Essential (primary) hypertension inactive December 19 1:16pm PAF (paroxysmal atrial fibrillation) inactive December 19 1:16pm Peripheral vascular occlusiv e disease inactive December 19 1:16pm Qpjrf-0-mszmyzlfjbt deficien cy carrier acute December 24 1:52pm Hypoxemia chronic December 24, 2024 1:52pm Emphysema of lung inactive 2024 1:52pm Nicotine dependence, cigarettes, uncomplicated inactive 2024 1:52pm Smoking greater than 30 pack years inactive December 24 1:52pm Atherosclerotic heart diseas e of [place] coronary artery without angina pectoris inactive January [...] anemia acute March 9:19pm Orthostatic hypotension acute 2024 9:19pm Signs and symptoms of anemia acute April 18, 2025 9:19pm 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 residential monitor acute April 18, 2025 9 :19pm Symptomatic anemia acute April 182024 9:19pm Acute on chronic anemia chronic 2024 9:19pm [facility] Work Phone: 1(230) 860-873501-23-2025 [facility]01-21-2025 Evaluation note* Diagnosis Onset Date Resolution [...] occlusiv e disease inactive December 19 1:16pm Gvskj-5-mglsdqcitvz deficien cy carrier acute December 24 1:52pm Hypoxemia chronic December 24, 2024 1:52pm Emphysema of lung inactive 2024 1:52pm Nicotine dependence, cigarettes, uncomplicated inactive 2024 1:52pm Smoking greater than 30 pack years inactive December 24 1:52pm Atherosclerotic heart diseas e of [place] coronary artery without angina pectoris inactive January [...] e disease inactive February 20, 2025 1:14pm [facility] Work Phone: 1(731) 518-982001-02-2025 Telephone encounter Note* Telephone Encounter - Linda [...] doctor or facility: N/A Ordering provider: Lizz Jones Date of last office visit: 12/14/23 Date of next office visit: 12/08/24 Date of last refill: (see medication tab): 09/15/24 Updated/Validated preferred pharmacy: [id number] Patient instructed to contact the pharmacy prior to picking up the medication: Yes [id number] Miscellaneous Notes* Telephone Encounter - Linda Glynn [...] doctor or facility: N/A Ordering provider: Lizz Jones Date of last office visit: 12/14/23 Date of next office visit: 12/08/24 Date of last refill: (see medication tab): 09/15/24 Updated/Validated preferred pharmacy: [id number] - [place], [place] - [address] [facility] Patient instructed to contact the pharmacy prior to picking up the medication: Yes * Telephone Encounter - Nallely Zaragoza MA - 11/20/2024 2:22 PM EST Last ov-12/14/23 Next ov- N/A documented in this [facility]01-02-2025 Telephone encounter Note* Telephone Encounter - Nallely Zaragoza MA - 11/20/2024 2:22 PM EST Last ov-12/14/23 Next ov- N/A [id number] Telephone encounter Note* Telephone Encounter - Yanely Kwon MA - 09/15/2024 6:47 AM EDT Last ov- 12/14/23 Next ov- n/a [id number] Miscellaneous Notes* Telephone Encounter - Yanely Kwon MA - 09/15/2024 6:47 AM EDT Last ov- 12/14/23 Next ov- n/a documented in this [facility]04-08-2024 Discharge summary Author Eva Dixon [facility] February 25, 2024 4:04pm Note Date/Time February 25, 2024 3:34 pm [facility] Medical Records Department [address] [place] [address] Discharge Summary 02/25/24 1529 MR#: [id number] Acct: [id number] Name: ANGÉLICA YO Rep #:[id number] 0 : 1955 68 From: Eva Mortensen DO PCP: Dr. Daron Benton MD Status:ADM IN [facility] Prov[facility] Date of Admission: 02/19/24 [...] who presented to the emergency department at [facility] on 02/19/2024 with lightheadedness. She does have [...] be seen within the next month or raheem as Dr. Gonzalez schedule allows. Her hemoglobin [...] (Auto) 68.4, Lymph % (Auto) 16.3 L, Drew % (Auto) 11.3 H, Eos % (Auto) [...] Care Provider: Daron Benton Consulting Providers: Roman Mcekon Instructions Additional Instructions / Restrictions: 1. Please [...] Health Service Charges/Coding Visit Charges Inpatient E&M: 06909 Disch Hosp >30min 02/25/24 1557 <Electronically signed [...] Benton MD; Dr. Eva Mortensen DO; Kevin Gonzalez, DO ~* Signed [facility] Work Phone: 1(995) 134-584804-08-2024 Procedure [facility] 02-25-2024 Procedure [facility]04-07-2024 Progress note Author Roman Mckeon [facility] February 24, 2024 8:37am Note Date/Time February 24, 2024 8:07 am [facility] Medical Records Department [address] [facility] [place] [address] Progress Note - Hospitalist 02/24/24805 MR#: [id number] Acct: [id number] Name: ANGÉLICA YO Rep #:[id number] : 1955 68 From: Roman Mckeon MD PCP: Dr. Daron Benton MD Status:ADM IN Location: [place] [address] Reason for Visit Reason for Visit: Diagnoses [...] (Auto) 69.1, Lymph % (Auto) 15.5 L, Drew % (Auto) 11.4 H, Eos % (Auto) [...] 2.0 02/23/24 18:05: Troponin I High Sens 02/23/24 19:50: Troponin I High Sens 02/24/24 06:20: WBC 10.0, RBC 4.00 L, Hgb 9.8 L, Hct 33.1 L, MCV 82.8, MCH 24.5 L, MCHC 29.6 L, RDW Std Deviation 56.5 H, RDW Coeff of David 19.3 H, Plt Count 200, MPV 9.5, Immature Gran % (Auto) 0.700, Neut % (Auto) 79.0 H, Lymph % (Auto)8.2 L, Drew % (Auto) 10.2 H, Eos % (Auto) [...] Signed: Rafael Daniel MD at 19:44 EDT Reading Location ID and State: [facility] / [place] , Service support , Physical Exam Narrative GENERAL: cooperative HEENT: [...] 35 Minutes Charges/Coding Visit Charges Inpatient E&M: 59945 Subs Hosp L2 02/24/24 0837 <Electronically signed by Roman Mckeon MD> Cosigner Signature (if applicable): CC: ~ Signed [facility] Work Phone: 1(908) 151-373804-06-2024 Progress note Author Kevin Gonzalez [facility] February 23, 2024 4:20pm Note Date/Time February 23, 2024 4:20 pm [facility] Medical Records Department [address] [place] [address] Progress Note - GI 02/23/24 1619 MR#: [id number] Acct: [id number] Name: ANGÉLICA YO Rep #:[id number] : 1955 68 From: Kevin Gonzalez DO PCP: Dr. Daron Benton MD Status:ADM IN Location: [place] [address] Subjective Subjective Patient does not have any [...] (Auto) 69.1, Lymph % (Auto) 15.5 L, Drew % (Auto) 11.4 H, Eos % (Auto) [...] on Sunday. Charges/Coding Visit Charges Inpatient E&M: 48852 Subs Hosp L3 02/23/24 1620 <Electronically signed by Kevin Gonzalez DO> Cosigner Signature (if applicable): CC: ~ Signed [facility] Work Phone: 1(180) 443-632804-06-2024 Progress note Author Roman Mckeon [facility] February 23, 2024 9:04am Note Date/Time February 23, 2024 8:20 am [facility] Medical Records Department [address] [place] [address] Progress Note - Hospitalist 02/23/24819 MR#: [id number] Acct: [id number] Name: ANGÉLICA YO Rep #:[id number] : 1955 68 From: Roman Mckeon MD PCP: Dr. Daron Benton MD Status:ADM IN Location: [place] [address] Reason for Visit Reason for Visit: Diagnoses [...] 38 Minutes Charges/Coding Visit Charges Inpatient E&M: 83817 Subs Hosp L2 02/23/24 0904 <Electronically signed by Roman Mckeon MD> Cosigner Signature (if applicable): CC: ~ Signed [facility] Work Phone: 1(884) 183-317104-05-2024 Progress note Author Kevin Gonzalez [facility] February 22, 2024 5:55pm Note Date/Time February 22, 2024 5:55 pm [facility] Medical Records Department [address] [place] [address] Progress Note - GI 02/22/24 1753 MR#: [id number] Acct: [id number] Name: CHRISTINANGÉLICA RAE Rep #:[id number] : 1955 68 From: Kevin Friend DO PCP: Dr. Daron Benton MD Status:ADM IN Location: [place] [address] Subjective Subjective Patient is still very lethargic [...] (Auto) 68.8, Lymph % (Auto) 14.2 L, Drew % (Auto) 12.5 H, Eos % (Auto) [...] and lethargy. Charges/Coding Visit Charges Inpatient E&M: 43064 Subs Hosp L3 02/22/24 1755 <Electronically signed by Kevin Friend DO> Cosigner Signature (if applicable): CC: ~ Signed [facility] Work Phone: 1(371) 273-997004-05-2024 Progress note Author Roman Mckeon [facility] February 22, 2024 9:50am Note Date/Time February 22, 2024 7:36 am [facility] Medical Records Department [address] [place] [address] Progress Note - Hospitalist 02/22/24 0736 MR#: [id number] Acct: [id number] Name: ANGÉLICA YO Rep #:[id number] : 1955 68 From: Roman Mckeon MD PCP: Dr. Daron Benton MD Status:ADM IN Location: [place] [address] Reason for Visit Reason for Visit: Diagnoses [...] 52 Minutes Charges/Coding Visit Charges Inpatient E&M: 56065 Subs Hosp L3 02/22/24 0950 <Electronically signed by Roman Mckeon MD> Cosigner Signature (if applicable): CC: ~ Signed [facility] Work Phone: 1(238) 204-458804-04-2024 Progress note Author Kevin Gonzalez [facility] February 21, 2024 5:17pm Note Date/Time February 21, 2024 5:17 pm [facility] Medical Records Department [address] [place] [address] Progress Note - GI 02/21/24 1710 MR#: [id number] Acct: [id number] Name: ANGÉLICA YO Rep #:[id number] 8 : 1955 68 From: Kevin Friend DO PCP: Dr. Daron Benton MD Status:ADM IN Location: [place] [address]- Subjective Subjective She underwent an upper endoscopy [...] or outpatient. Charges/Coding Visit Charges Inpatient E&M: 72348 Subs Hosp L3 02/21/24 1717 <Electronically signed by Kevin Friend > Cosigner Signature (if applicable): CC: ~ Signed [facility] Work Phone: 1(299) 780-996904-04-2024 Progress note Author Roman Mckeon [facility] February 21, 2024 11:21am Note Date/Time February 21, 2024 10:0 5am [facility] Medical Records Department [address] [place] [address] Progress Note - Hospitalist 02/21/24 1002 MR#: [id number] Acct: [id number] Name: CHRISTINANGÉLICA RAE Rep #:[id number] 4 : 1955 68 From: Roman Mckeon MD PCP: Dr. Daron Benton MD Status:ADM IN Location: [place] [address] Reason for Visit Reason for Visit: Diagnoses [...] 50 Minutes Charges/Coding Visit Charges Inpatient E&M: 61503 Subs Hosp L3 02/21/24 1121 <Electronically signed by Roman Mckeon MD> Cosigner Signature (if applicable): CC: ~ Signed [facility] Work Phone: 1(496) 132-821704-03-2024 Progress note Author Roman Mckeon [facility] February 20, 2024 11:46am Note Date/Time February 20, 2024 10:0 8am [facility] Medical Records Department [address] [place] [address] Progress Note - Hospitalist 02/20/24 1005 MR#: [id number] Acct: [id number] Name: ANGÉLICA YO Rep #:[id number] 6 : 1955 68 From: Roman Mckeon MD PCP: Dr. Daron Benton MD Status:ADM IN Location: [place] [address] Reason for Visit Reason for Visit: Diagnoses [...] 73.5 H, Lymph % (Auto) 14.5 L, Drew % (Auto) 8.5, Eos % (Auto) 2.6, [...] 71.0 H, Lymph % (Auto) 14.4 L, Drew % (Auto) 11.1 H, Eos % (Auto) [...] 50 Minutes Charges/Coding Visit Charges Inpatient E&M: 26583 Subs Hosp L3 02/20/24 1146 <Electronically signed by Roman Mckeon MD> Cosigner Signature (if applicable): CC: ~ Signed [facility] Work Phone: 1(855) 936-165704-03-2024 Procedure [facility] 02-20-2024 Procedure [facility]04-02-2024 Consult note Author Kevin Gonzalez [facility] February 19, 2024 7:12pm Note Date/Time February 19, 2024 7:09 pm [facility] Medical Records Department [address] [place] [address] Consultation - GI 02/19/24 1908 MR#: [id number] Acct: [id number] Name: ANGÉLICA YO Rep #:[id number] 1 : 1955 68 From: Kevin Gonzalez DO PCP: Dr. Daron Benton MD Status:ADM IN Location: [place] [address] HPI Consult Data Date of Consult: 02/19/24 [...] fell on Easter in the driveway onto [address]. She did not hit her head. She denies any recent hospitalization or travel. Imaging of the chest displayed : right lower lobe infiltrate with small right pleural effusion with mild degree of vascular congestion in the right hemithorax. In the ED she was discovered to have a hemoglobin of 6.6. I was consulted for acute onset anemia [facility] Medical History Angina pectoris [...] Stomach morphine AdvReac Nausea Verified 02/19/24 10:57 Hxhrdsn-Xgs-Cqw Reductase AdvReac Nausea Verified 02/19/24 10:57 Inhibitor [...] 73.5 H, Lymph % (Auto) 14.5 L, Drew % (Auto) 8.5, Eos % (Auto) 2.6, [...] of 3. Charges/Coding Visit Charges Inpatient E&M: 43107 Init Hosp L3 02/19/241911 <Electronically signed by Kevin Friend DO> Cosigner Signature (if applicable): CC: Dr. Daron Benton MD~ Signed [facility] Work Phone: 1(573) 212-167904-02-2024 History and physical note Author Roman Mckeon [facility] February 19, 2024 3:25pm Note Date/Time February 19, 2024 2:26 pm [facility] Medical Records Department [address] [place] [address] H&P Exam - Hospitalist 02/19/24 1426 MR#: [id number] Acct: [id number] Name: ANGÉLICA YO Rep #:[id number] 0 : 1955 68 From: Roman Mckeon [...] Admitted to monitored bed for further management [facility] Medical History Angina pectoris [...] Stomach morphine AdvReac Nausea Verified 02/19/24 10:57 Dypviah-TAU-AcV Reductase AdvReac Nausea Verified 02/19/24 10:57 Inhibitor [Yrpnvtz-Xrm-Tww Reductase Inhibitor] Family History Mother Cancer CAD [...] 73.5 H, Lymph % (Auto) 14.5 L, Drew % (Auto) 8.5, Eos % (Auto) 2.6, [...] 18 minutes. Charges/Coding Visit Charges Inpatient E&M: 46972 Init Hosp L3 Procedures Hospitalists Procedures: 24233 Advncd Care Plan 30 Min 02/19/24 1525 <Electronically signed by Roman Mckeon MD> Cosigner Signature (if applicable): CC: Dr. Roman Mckeon MD; Dr. Daron Benton MD~ Signed [facility] Work Phone: 1(540) 553-981904-02-2024 Discharge summary Author Jeffy Willoughby [facility] February 19, 2024 2:59pm Note Date/Time February 19, 2024 12:1 5pm [facility] Medical Records Department [address] [place] [address] Emergency Department Summary 02/19/24 MR#: [id number] Acct: [id number] Name: ANGÉLICA YO Rep #:[id number] 6 : 1955 68 From: Jeffy Willoughby MD PCP: Dr. Daron Benton MD Status:REG ER Location: ED ADDENDUM by Dr. Jeffy Willoughby MD on 02/19/24 at 1459 EKG reveals atrial fibrillation with a ventricular rate 87. QRS duration 84 ms. QT duration 414 ms. [place] is normal. QT is prolonged. 02/19/24 1459<Electronically [...] Stomach morphine AdvReac Nausea Verified 02/19/24 10:57 Fpaamyy-TTQ-CqA Reductase AdvReac Nausea Verified 02/19/24 10:57 Inhibitor [Ffdeepv-Iln-Lmz Reductase Inhibitor] Family History Mother Cancer CAD [...] - Last Filed: 02/19/24 13:46> [facility] Narrative Medical decision making narrative: Patient placed on residential monitor. IV line initiated. Labwork obtained to [...] 73.5 H Lymph % (Auto) 14.5 L Drew % (Auto) 8.5 Eos % (Auto) 2.6 [...] in both arms to rule out dissection. Unbso-xu-ztea glucose was obtained to rule out hypoglycemia. [...] Medical decision making narrative: Patient placed on residential monitor. IV line initiated. Labwork obtained to evaluate for leukocytosis, anemia, and electrolyte derangement. Chest x-ray obtained to evaluate for acute lung pathology, cardiac size, or mediastinal abnormality. EKG obtained to evaluate for cardiac arrhythmia/ischemia. I have personally performed a face to face assessment of the patient and have reviewed the ANTHONY Note. I performed a substantive portion of [...] 73.5 H Lymph % (Auto) 14.5 L Drew % (Auto) 8.5 Eos % (Auto) 2.6 [...] 12:50 EDT Reading Location ID and State: [address] [place] [address] , Service support , Management Discussion w/another healthcare provider: Hospitalist <Dr. Jeffy Willoughby MD - Last Filed: 02/19/24 14:39> Critical Care Time Critical Care Time: Yes Critical care time (excluding procedures): 30-74 minutes (31), Including time spent: (History, physical, documentation, review of prior records, independent interpretation laboratory results and imaging. Treatment for hypertension and pneumonia), Discussing w/Patient &/or Family/Loom Fixer, Discussing w/Consultants (Spoke with Dr. Chamorro who referred patient to Dr. Roman Mckeon. Patient was accepted.) and Arranging Admission or Transfer Discharge Plan Dx/Rx/DC Orders Clinical Impression: Acute hypotension, Essential (primary) hypertension, Atrial fibrillation, Community acquired pneumonia, Atypical chest pain, Signs and symptoms of anemia,Symptomatic anemia, Peripheral vascular occlusive disease Disposition Disposition: Acute Care Hospital [facility] What to do if you have Problems For any increased pain, shortness of breath, bleeding, nausea or vomiting, chestpain, or any unexpected problems, contact your Primary Care Provider. Call [facility] ([phone]) or report to the closest Emergency Room. Call 911 if necessary. 02/19/24 1439 <Electronically signed by Jeffy Willoughby MD> Cosigner Signature (if applicable): 02/19/24 1346 <Electronically signed by Bernice Warren RN> CC: Dr. Daron Benton MD ~ Signed [facility] Work Phone: 1(721) 379-782904-02-2024 Discharge summary Author Jeffy Willoughby [facility] February 19, 2024 2:59pm Note Date/Time February 19, 2024 12:1 5pm [facility] Medical Records Department [address] [place] [address] Emergency Department Summary 02/19/24 MR#: [id number] Acct: [id number] Name: ANGÉLICA YO Rep #:[id number] 6 : 1955 68 From: Jeffy Willoughby MD PCP: Dr. Daron Benton MD Status:[facility] ER Location: ED ADDENDUM by Dr. Jeffy Willoughby MD on 02/19/24 at 1459 EKG reveals atrial fibrillation with a ventricular rate 87. QRS duration 84 ms. QT duration 414 ms. Petrolia is normal. QT is prolonged. 02/19/24 1459<Electronically [...] Prior similar symptoms: Yes Recent Illness/Hospitalization: No [facility] <Bernice Warren RN - Last Filed: 02/19/24 13:46> [facility] Medical History Angina pectoris [...] Stomach morphine AdvReac Nausea Verified 02/19/24 10:57 Fthooac-RXD-AqB Reductase AdvReac Nausea Verified 02/19/24 10:57 Inhibitor [Kbovzkp-Mld-Rio Reductase Inhibitor] Family History Mother Cancer CAD [...] Medical decision making narrative: Patient placed on residential monitor. IV line initiated. Labwork obtained to [...] 73.5 H Lymph % (Auto) 14.5 L Drew % (Auto) 8.5 Eos % (Auto) 2.6 [...] in both arms to rule out dissection. Cyjsl-vh-ifcr glucose was obtained to rule out hypoglycemia. [...] Willoughby MD - Last Filed: 02/19/24 14:39> [facility] MDM Narrative Medical decision making narrative: Patient placed on residential monitor. IV line initiated. Labwork obtained to evaluate for leukocytosis, anemia, and electrolyte derangement. Chest x-ray obtained to evaluate for acute lung pathology, cardiac size, or mediastinal abnormality. EKG obtained to evaluate for cardiac arrhythmia/ischemia. I have personally performed a face to face assessment of the patient and have reviewed the ANTHONY Note. I performed a substantive portion of [...] 73.5 H Lymph % (Auto) 14.5 L Drew % (Auto) 8.5 Eos % (Auto) 2.6 [...] for hypertension and pneumonia), Discussing w/Patient &/or Family/Loom Fixer, Discussing w/Consultants (Spoke with Dr. Chamorro who referred patient to Dr. Roman Mckeon. Patient was accepted.) and Arranging Admission or Transfer Discharge Plan Dx/Rx/DC Orders Clinical Impression: Acute hypotension, Essential (primary) hypertension, Atrial fibrillation, Community acquired pneumonia, Atypical chest pain, Signs and symptoms of anemia,Symptomatic anemia, Peripheral vascular occlusive disease Disposition Disposition: Acute Care Hospital [facility] What to do if you have Problems For any increased pain, shortness of breath, bleeding, nausea or vomiting, chestpain, or any unexpected problems, contact your Primary Care Provider. Call [facility] ([phone]) or report to the closest Emergency Room. Call 911 if necessary. 02/19/24 1439 <Electronically signed by Jeffy Willoughby MD> Cosigner Signature (if applicable): 02/19/24 1346 <Electronically signed by Bernice Warren RN> CC: Dr. Daron Benton MD ~ Signed [facility] Work Phone: 1(104) 406-357204-02-2024 History and physical note Author Roman Mckeon [facility] February 19, 2024 3:25pm Note Date/Time February 19, 2024 2:26 pm [facility] Medical Records Department [address] [place] [address] H&P Exam - Hospitalist 02/19/24 1426 MR#: [id number] Acct: [id number] Name: ANGÉLICA YO Rep #:[id number] 0 : 1955 68 From: Roman Mckeon [...] Admitted to monitored bed for further management [facility] Medical History Angina pectoris [...] Stomach morphine AdvReac Nausea Verified 02/19/24 10:57 Xnoaoan-KEM-UgI Reductase AdvReac Nausea Verified 02/19/24 10:57 Inhibitor [Rgcohxq-Rei-Fra Reductase Inhibitor] Family History Mother Cancer CAD [...] 73.5 H, Lymph % (Auto) 14.5 L, Drew % (Auto) 8.5, Eos % (Auto) 2.6, [...] 18 minutes. Charges/Coding Visit Charges Inpatient E&M: 43282 Init Hosp L3 Procedures Hospitalists Procedures: 57686 Advncd Care Plan 30 Min 02/19/24 1525 <Electronically signed by Roman Mckeon MD> Cosigner Signature (if applicable): CC: Dr. Roman Mckeon MD; Dr. Daron Benton MD~ Signed [facility] Work Phone: 1(631) 219-844403-25-2024 Telephone encounter Note* Telephone Encounter - Nicole Clarkbs - 02/11/2024 10:34 AM EDT Medication name: [...] to picking up the medication[id number] Misc[facility] Notes* Telephone Encounter - Nicole Cota [...] up the medication: N/A documented in this [facility]02-23-2024 Discharge summary Author Jori Garcia [facility] January 11, 2024 8:14am Note Date/Time January 11, 2024 2:45am [facility] Medical Records Department [address] [place] [address] Emergency Department Summary 01/11/24 MR#: [id number] Acct: [id number] Name: ANGÉLICA YO Rep #:[id number] 4 : 1955 68 From: Jori Garcia [...] in her ears, following with neurology at [facility], and has been having dizziness related [...] she has osteoporosis. Sheis on no anticoagulants. [facility] Medical History Angina pectoris Bilateral [...] 02:15 (Glucocorticoids) Stomach morphine AdvReac Nausea Verified 02/23/24 02:15 Mlondqr-JLJ-BqT Reductase AdvReac Nausea Verified 01/11/24 02:15 Inhibitor [Kdiilgh-Xdr-Kxt Reductase Inhibitor] Family History Mother Cancer CAD [...] per HPI, disequillibrium, dizziness and other Details: she felt like she was off balance ; [...] motor deficits and no sensory deficits noted Nelly Coma Scale: document GCS findings Spontaneous Obeys [...] (prior Afib thought to have caused CVA/TIA, [id number]-PAXa score of 4, prescribed Eliquis but patient [...] 85.1 H Lymph % (Auto) 5.2 L Drew % (Auto) 7.7 Eos % (Auto) 0.2 [...] Clarity Clear Urine pH 7.0 Ur Specific [place] 1.010 Urine Protein Negative Urine Glucose (UA) [...] (Auto) Neut % (Auto) Lymph % (Auto) Drew % (Auto) Eos % (Auto) Baso % (Auto) Absolute Neuts (auto) Absolute Lymphs (auto) Nucleated RBC % Sodium Potassium Chloride Carbon Dioxide Anion Gap BUN Creatinine Estim Creat Clear Calc Est GFR (MDRD) Af Amer Est GFR (MDRD) Non-Af BUN/Creatinine Ratio Glucose Lactic Acid Calcium Magnesium Troponin I High Sens 17 Urine Color Urine Clarity Urine pH Ur Specific [place] Urine Protein Urine Glucose (UA) Urine Ketones [...] problems, contact your Primary Care Provider. Call [facility] ([phone]) or report to the closest Emergency Room. Call 911 if necessary. 01/11/24 0814 <Electronically signed by Jori Garcia MD> Cosigner Signature (if applicable): CC: Dr. Tye Barnett MD; Dr. Daron Benton MD; MARIANA Candelario ~ Signed [facility] Work Phone: 1(513) 662-573001-26-2024 History of Present illness Narrative* Lizz Jones, BIOMASS TECHNICIAN - PATIENT CENTERED CARE SPECIALIST - 12/14/2023 2:00 PM EST Visit type: [...] unsure how much solumedrol she received. From [facility] records: CT brain 12/02/23: no acute intracranial [...] TSH VITAMIN B12: No results found for: HXSVUNEW97 No results found for: PHENYTOIN, PHENOBARB, VALPROATE, CBMZ No components found for: TOPIRA @RESULTINGLABINFO@ No results found for: LEVETIRACETA, FERRITIN, CRP, DENNIS, ANCA No results found for: CHRISTIANO, IMMUNOGLOBUL, OLIGOBANDS No results found for: SBO13BS, HEPCAB No results found for: CRP, ANATITER, ANCA FERRITIN: No results found for: FERRITIN ---- ECG 12 lead SINUS BRADYCARDIA PROBABLE LEFT ATRIAL ABNORMALITY No previous ECG available for comparison Electronically Signed On 04-05-2023 7:42:10 EDT by [facility]al [facility] IMPRESSION and PLAN: Problem List Items Addressed [...] 1 tablet on day 5 MRI from [facility] does not show reason for this; exam consistent with vertigo; will order vestibular theapy Vestibular therapy Referral to [facility]. No problem-specific Assessment & Plan notes found for this encounter. ANTWON Harrington CNP I spent 60 minutes caring for this patient today, reviewing labs, records, seeing the patient, documenting in the record and arranging for studies. Electronically signed by ANTWON Harrington CNP on @TDNR@ at @NOWNR@ documented in this [facility]01-26-2024 Instructions* Patient Instructions* ANTWON Harrington CNP - 12/14/2023 2:00 PM EST Prednisone 20mg: take 5 tablets on day 1, 4 tablets on day 2, 3 tablets on day 3, 2 tablets on day 4, and 1 tablet on day 5 Vestibular therapy at [facility] [phone] [facility] for eye exam: [phone] documented in this [facility]01-19-2024 Discharge summary Author Sachin Murillo [facility] December 07, 2023 12:49pm Note Date/Time December 07, 2023 1 2:38pm [facility] Medical Records Department [address] [place] [address] Instructions for Home/Discharge Instructions 12/07/23 1238 MR#: [id number] Acct: [id number] Name: ANGÉLICA YO Rep #:[id number] 3 : 1955 68 From: Sachin chan [...] Farris DO; Keyona Davidson MD ~ Signed [facility] Work Phone: 1(532) 593-286501-18-2024 Progress note Author Sachin Murillo [facility] December 06, 2023 9:04am Note Date/Time December 06, 2023 9 :04am [facility] Medical Records Department [address] [place] [address] Progress Note - Hospitalist 12/06/23 0900 MR#: [id number] Acct: [id number] Name: ANGÉLICA YO Rep #:[id number] 3 : 1955 68 From: Sachin chan [...] (Auto) 79.3 H, Lymph % (Auto) 10.6L, Drew % (Auto) 9.4, Eos % (Auto) 0.0, [...] 13:44 EST Reading Location ID and State: [facility] / [place] Tel , Service support , Rhythm Strip [...] Continue with Synthroid DVT: Eliquis Capacity Legal Tile Setter Reflex Medical hold order details:: IF a medical hold is selected below, a suggested order for a MEDICAL HOLD will reflex upon signing the document. Next of kin: [place] law dictates a PRIORITY LIST for identifying legal decision-maker/legal next of kin in the following order (LNOK): 1st: The patient?s legal guardian, if any 2nd: The patient's spouse (if status is questionable, consult Risk Management) 3rd: The patient?s adult child(blaine) (majority, if multiple children) 4th: The patient?s parents 5th: The patient?s adult siblings (majority, if multiple children siblings) Charges/Coding Visit Charges Inpatient E&M: 09937 Subs Hosp L2 12/06/23 0904 <Electronically signed by Sachin Murillo MD> Cosigner Signature (if applicable): CC: ~ Signed [facility] Work Phone: 1(504) 427-191901-17-2024 Progress note Author Kiley Carpenter [facility] December 05, 2023 3:42pm Note Date/Time December 05, 2023 1 :57pm [facility] Medical Records Department [address] [place] [address] Progress Note - Neurology 12/05/23 1348 MR#: [id number] Acct: [id number] Name: ANGÉLICA YO Rep #:[id number] 3 : 1955 68 From: Kiley Carpenter [...] NIHSS: Ischemic Stroke/TIA Start: 12/03/23 09:41 Freq: [id number] Status: Active Protocol: Activity Type Activity Date [...] 112 Output Total 200 / 200 Balance 2165 / 2166 140 / 140 112 / [...] 90.5 H, Lymph % (Auto) 5.1 L, Drew % (Auto) 3.7, Eos % (Auto) 0.0, [...] Detailed strength exam as performed by the nurse/ANTHONY and witnessed by the physician: R L SA 5 5 EE 5 5 EF 5 5 WE WF Photoengraving Supervisor 5 5 HF 3 5 KE 4 5 KF 5 4 DF 5 5 PF 5 5 -? Sensation- Intact to light touch bilaterally -? Coordination: improved ataxia on the RLE (not prominent); b/l UE with no ataxia -? Gait- deferred 12/05/23 1542 <Electronically signed by Kiley Carpenter MD> Cosigner Signature (if applicable): CC: ~ Signed [facility] Work Phone: 1(379) 118-953201-17-2024 Progress note Author Sachin Murillo [facility] December 05, 2023 10:21am Note Date/Time December 05, 2023 1 0:21am [facility] Medical Records Department [address] [place] [address] Progress Note - Hospitalist 12/05/23 1016 MR#: [id number] Acct: [id number] Name: ANGÉLICA YO Rep #:[id number] 1 : 1955 68 From: Sachin chan [...] 90.5 H, Lymph % (Auto) 5.1 L, Drew % (Auto) 3.7, Eos % (Auto) 0.0, [...] meds as needed DVT: Eliquis Capacity Legal Tile Setter Reflex Medical hold order details:: IF a medical hold is selected below, a suggested order for a MEDICAL HOLD will reflex upon signing the document. Next of kin: [place] law dictates a PRIORITY LIST for identifying legal decision-maker/legal next of kin in the following order (LNOK): 1st: The patient?s legal guardian, if any 2nd: The patient's spouse (if status is questionable, consult Risk Management) 3rd: The patient?s adult child(blaine) (majority, if multiple children) 4th: The patient?s parents 5th: The patient?s adult siblings (majority, if multiple children siblings) Charges/Coding Visit Charges Inpatient E&M: 48255 Subs Hosp L2 12/05/23 1021 <Electronically signed by Sachin Murillo MD> Cosigner Signature (if applicable): CC: ~ Signed [facility] Work Phone: 1(896) 249-103801-17-2024 Progress note Author Jorge Hurtado [facility] December 05, 2023 8:31am Note Date/Time December 05, 2023 7 :39am [facility] Medical Records Department [address] [place] [address] Progress Note - Seam Stay Stitcher 12/05/23 0737 MR#: [id number] Acct: [id number] Name: ANGÉLICA YO Rep #:[id number] 1 : 1955 68 From: Jorge Hurtado [...] noted above. This note was generated with Dash dictation software. It may contain incorrectwords, spelling, [...] 12/04/23 12/05/23 23:59 23:59 23:59 Intake Total 2165 340 / 340 112 / 112 Output Total 200 / 200 Balance 2165 / 2165 140 / 140 112 / 112 Lab [...] 90.5 H, Lymph % (Auto) 5.1 L, Drew % (Auto) 3.7, Eos % (Auto) 0.0, [...] the stomach. No bowel obstruction. Electronically Signed: Eljiah Pollack MD at 18:30 EST , Rhythm [...] Psych cooperative Charges/Coding Visit Charges Inpatient E&M: 11016 Subs Hosp L2 12/05/23 0831 <Electronically signed by Jorge Hurtado DO> Cosigner Signature (if applicable): CC: ~ Signed [facility] Work Phone: 1(881) 158-910601-17-2024 Progress note Author Kiley Carpenter [facility] December 04, 2023 10:44pm Note Date/Time December 04, 2023 8 :19pm [facility] Medical Records Department [address] [place] [address] Progress Note - Neurology 12/04/232014 MR#: [id number] Acct: [id number] Name: ANGÉLICA YO Rep #:[id number] 8 : 1955 68 From: Kiley Carpenter [...] NIHSS: Ischemic Stroke/TIA Start: 12/03/23 09:41 Freq: [id number] Status: Active Protocol: Activity Type Activity Date Activity User E-sign Co-sign Detail Recorded Client Recorded Date Recorded By Document 12/04/23 17:29 [facility] Desktop 12/04/23 17:30 [facility] 12/04/23 17:29 NIH Stroke Scale [NIHSS] A [...] (Auto) 91.9 H, Lymph % (Auto)4.1 L, Drew % (Auto) 3.1, Eos % (Auto) 0.0, [...] movements, the is no post-ictal phase noted 12/04/239 <Electronically signed by Kiley Carpenter MD> Cosigner Signature (if applicable): CC: ~ Signed [facility] Work Phone: 1(810) 777-367001-16-2024 Consult note Author Jorge Hurtado [facility] December 04, 2023 2:14pm Note Date/Time December 04, 2023 7 :20am [facility] Medical Records Department [address] [place] [address] Consultation - Seam Stay Stitcher 12/04/23 0715 MR#: [id number] Acct: [id number] Name: ANGÉLICA YO Rep #:[id number] 6 : 1955 68 From: Jorge Hurtado [...] noted above. This note was generated with Dash dictation software. It may contain incorrectwords, spelling, [...] maintained on Eliquis, Plavix, Neurontin and antimicrobials. [facility] Medical History Angina pectoris [...] Stomach morphine AdvReac Nausea Verified 11/26/23 12:47 Udeaife-IYF-OiO Reductase AdvReac Nausea Verified 11/26/23 12:47 Inhibitor [Evchmod-Gvl-Hox Reductase Inhibitor] Family History Mother Cancer CAD [...] (Auto) 91.9 H, Lymph % (Auto)4.1 L, Drew % (Auto) 3.1, Eos % (Auto) 0.0, [...] MD at 22:18 EST , Capacity Legal Tile Setter Reflex Medical hold order details:: IF a medical hold is selected below, a suggested order for a MEDICAL HOLD will reflex upon signing the document. Next of kin: [place] law dictates a PRIORITY LIST for identifying legal decision-maker/legal next of kin in the following order (LNOK): 1st: The patient?s legal guardian, if any 2nd: The patient's spouse (if status is questionable, consult Risk Management) 3rd: The patient?s adult child(blaine) (majority, if multiple children) 4th: The patient?s parents 5th: The patient?s adult siblings (majority, if multiple children siblings) Charges/Coding Visit Charges Inpatient E&M: 18119 Init Hosp L3 12/04/23 1414 <Electronically signed [...] MD; Rhiannon Farris DO; Keyona Davidson MD~ [facility] Work Phone: 1(341) 135-765401-16-2024 Progress note Author Sachin Murillo [facility] December 04, 2023 9:58am Note Date/Time December 04, 2023 9 :58am [facility] Medical Records Department [address] [place] [address] Progress Note - Hospitalist 12/04/23 0953 MR#: [id number] Acct: [id number] Name: ANGÉLICA YO Rep #:[id number] 1 : 1955 68 From: Sachin chan [...] (Auto) 91.9 H, Lymph % (Auto)4.1 L, Drew % (Auto) 3.1, Eos % (Auto) 0.0, [...] 34.8 L ABG pO2 73 L 93 Akye Test Positive Positive O2 Delivery Device Cannula [...] meds as needed DVT: Eliquis Capacity Legal Tile Setter Reflex Medical hold order details:: IF a medical hold is selected below, a suggested order for a MEDICAL HOLD will reflex upon signing the document. Next of kin: [place] law dictates a PRIORITY LIST for identifying legal decision-maker/legal next of kin in the following order (LNOK): 1st: The patient?s legal guardian, if any 2nd: The patient's spouse (if status is questionable, consult Risk Management) 3rd: The patient?s adult child(blaine) (majority, if multiple children) 4th: The patient?s parents 5th: The patient?s adult siblings (majority, if multiple children siblings) Charges/Coding Visit Charges Inpatient E&M: 24950 Subs Hosp L2 12/04/23 0958 <Electronically signed by Sachin Murillo MD> Cosigner Signature (if applicable): CC: ~ Signed [facility] Work Phone: 1([phone]) 464-217101-16-2024 Progress note Author Roman Hewitt [facility] December 04, 2023 12:19am Note Date/Time December 03, 2023 8 :22pm [facility] Medical Records Department [address] [place] [address] Progress Note - Hospitalist 12/03/232018 MR#: [id number] Acct: [id number] Name: ANGÉLICA YO Rep #:[id number] 9 : 1955 68 From: Roman Ortega [...] this time. I patiently spoke to the FRETTED INSTRUMENT REPAIRER and informed her to send the patient [...] sonwas updated with results. RUN DATE: 12/03/23 [facility], DEPARTMENT OF LABORATORIES PAGE 1 RUN TIME: 2038 Specimen Inquiry [address] [facility] [place], [address] PATIENT: ANGÉLICA YO LOC: ICU U #: [id number] : 1955 AGE/SX: 68/F FACILITY: [facility] ROOM: ICU02 RE12/02/[address]: Dr. Sachin Murillo STATUS:ADM IN ED: 1 DIS: ~ SPEC #: [id number] LIZBET: 12/03/23 STATUS: COMP REQ #: [id number] RECD: 12/03/[address]: Dr. Sachin Murillo MD ENTERED: 12/03/[address] [facility] [address]: Kt Friend MD, Angie Perales MD, Allison Alicia Zha, MD Dr. Deepak Gulati, MD Dr. David Kittoe, MD Dr. Eric Smith, MD Dr. Hera Kamdar, MD Dr. Jan Bittar, MD Dr. James Burke, MD Margaret Beigel, DO Dr. Matthew Gusler, DO Mian, Maryam Dr. Mohamed Ridha, MD Dr. Mhd Ezzat Zaghlouleh, MD Robison, Peter Dr. Rami Azevedo, MD Dr. Joseph Lloyd, MD Dr. Samina Festus, MD Hannawi,Yousef MD ~ Test Result Flag Adult ReferenceRange IBG Blood Gas Type ART SITE L Radial KAYE TEST Positive Mode Not entered O2 Delivery Dev Cannula FI02 5.0 pH 7.43 7.35-7.45 pCO2 32.5 L 35-45 mmHg PO2 73 L 75-100 mmHG HCO3 21.6 L 22-26 mmol/L BE -3 L -2 to +2 mmol/L TOTAL CO2 23 mmol/L SO2 95 95-99 % [facility] Imaging Services [address] [place] [address] CTA Head AND Neck W/ Contrast MR#: [id number] Acct: [id number] Name: ANGÉLICA YO Rep #: [id number] : 1955 F 68 From: Charmaine Grant MD PCP: Dr. Daron Benton MD Status: ADM IN Study: CTA Head AND Neck W/ Contrast Date of Exam: 12/03/23 Exam# [id number] Ordering Dr: Roman Miller DO STUDY: CTA [...] There is no demonstrated aneurysm of the [place] of [place]. There is no demonstrated abnormality [...] Miller DO; Dr. Daron Benton MD ~ Traffic Signal Mechanic: Signed 12/04/23 0019 <Electronically signed by Roman Miller DO> Cosigner Signature (if applicable): CC: ~ Signed [facility] Work Phone: 1(693) 977-292201-15-2024 Progress note Author Sachin Murillo [facility] December 03, 2023 2:31pm Note Date/Time December 03, 2023 2 :22pm [facility] Medical Records Department [address] [place] [address] Progress Note - Hospitalist 12/03/23 1419 MR#: [id number] Acct: [id number] Name: ANGÉLICA YO Rep #:[id number] : 1955 68 From: Sachin chan MD PCP: Dr. Daron Benton MD Status:ADM IN Location: [place] [address] Subjective Subjective She was a stroke alert [...] 88.4 H, Lymph % (Auto) 10.2 L, Drew % (Auto) 0.8, Eos % (Auto) 0.0, [...] meds as needed DVT: Eliquis Capacity Legal Tile Setter Reflex Medical hold order details:: IF a medical hold is selected below, a suggested order for a MEDICAL HOLD will reflex upon signing the document. Next of kin: [place] law dictates a PRIORITY LIST for identifying legal decision-maker/legal next of kin in the following order (LNOK): 1st: The patient?s legal guardian, if any 2nd: The patient's spouse (if status is questionable, consult Risk Management) 3rd: The patient?s adult child(blaine) (majority, if multiple children) 4th: The patient?s parents 5th: The patient?s adult siblings (majority, if multiple children siblings) Charges/Coding Visit Charges Inpatient E&M: 45309 Subs Hosp L2 12/03/23 1431 <Electronically signed by Sachin Murillo MD> Cosigner Signature (if applicable): CC: ~ Signed [facility] Work Phone: 1(311) 642-577101-14-2024 Consult note Author Kiley Carpenter [facility] December 02, 2023 2:51pm Note Date/Time December 02, 2023 2 :05pm [facility] Medical Records Department [address] [place] [address] Consultation - Neurology 12/02/23 1403 MR#: [id number] Acct: [id number] Name: ANGÉLICA YO Rep #:[id number] 9 : 1955 68 From: Kiley Carpenter MD PCP: Dr. Daron Benton MD Status:ADM IN Location: [place] [address] Assessment and Plan: Neuro Assessment/Plan ANGÉLICA YO [...] any urinary symptoms. Her neurologist is in [place]. ANGÉLICA YO, is a 68 F with [...] hrs Had her aneurysm coiled in 2013. [facility] Medical History Angina pectoris [...] Stomach morphine AdvReac Nausea Verified 11/26/23 12:47 Hirdocs-NML-GyH Reductase AdvReac Nausea Verified 11/26/23 12:47 Inhibitor [Jzqhehh-Vme-Ujx Reductase Inhibitor] Family History Mother Cancer CAD [...] Detailed strength exam as performed by the nurse/ANTHONY and witnessed bythe physician: R L SA 5 4 EE 5 4 EF 5 4 WE l WF Photoengraving Supervisor 5 5 HF 3 4 KE 4 [...] % (Auto) 56.3, Lymph % (Auto) 28.5, Drew % (Auto) 12.7 H, Eos % (Auto) [...] Clarity Clear, Urine pH 6.5, Ur Specific [place] 1.015, Urine Protein 15 H, Urine Glucose [...] 8:45 EST Reading Location ID and State: [facility] / [place] Tel , Service support , Chest X-Ray [...] 22:00 Apixaban 5 Mg Tablet PO BID [facility] Baclofen 20 mg 12/02/23 12:45 Baclofen 10 Mg Tablet PO Q8 [facility] Cholecalciferol 125 mcg 12/03/23 10:00 Cholecalciferol (Vit D3) 125 Mcg Capsule (5,000 Units) PO DAILY [facility] Clopidogrel Bisulfate 75 mg 12/03/23 10:00 Clopidogrel Bisulfate 75 Mg Tablet PO DAILY [facility] Docusate Sodium 100 mg 12/02/23 12:37 Docusate Sodium 100 Mg Capsule PO BID PRN PRN Constipation Gabapentin 800 mg 12/02/23 12:45 Gabapentin 800 Mg Tablet PO TIDCM [facility] Guaifenesin 1 tablet 12/02/23 22:00 Guaifenesin/D-Methorphan Tab.Sr.12h PO Q12 [facility] Guaifenesin 20 ml 12/02/23 12:37 Guaifenesin 10 Ml Udc (200mg/10ml) PO Q4H PRN PRN COUGH Potassium Chloride/Dextrose/Sod Cl 20 meq in 1,000 mls @ 100 mls/hr 12/02/23 12:37 IV 12/03/23 08:36 .Q10H VIMAL Ceftriaxone Sodium 1 gm in 50 mls @ 100 mls/hr 12/02/23 12:37 Rocephin IV 12/09/23 12:38 Q24 [facility] Levothyroxine Sodium 50 mcg 12/03/23 06:00 Levothyroxine 50 Mcg Tablet PO DAILY@0600 [facility] Lisinopril 5 mg 12/03/23 10:00 Lisinopril 5 Mg Tablet PO DAILY [facility] Protocol Melatonin 3 mg 12/02/23 12:37 Melatonin 3 Mg Tablet PO QHS PRN PRN INSOMNIA Metoprolol Tartrate 12.5 mg 12/02/23 22:00 Metoprolol Tartrate 25 Mg Tablet PO BID [facility] Protocol Nitroglycerin 0.4 mg 12/02/23 12:37 Nitroglycerin [...] applicable): CC: Jo Ann Krishnamurthy; Ruby Wynn; Rimashari Riggins; Michele Crawley; Kiley Carpenter MD;Angie Shields MD; Kt Friend MD; Dr. Johnny Sepulveda MD; Dr. Daron Benton MD;Dr. Nikole Allison MD; Dr. Kristopher Hernández MD; Dr. Gerald Suh MD; Dr. Silvino Schmidt DO; Dr. Simon Tellez MD; Dr. Sarkis Brown MD; Dr. Kirsten Azevedo MD; Dr. Joseph Desai MD; Dr. Samina Mortensen MD; Arleen Estrada DO; Keyona Davidson MD~ Signed [facility] Work Phone: 1([phone]) 681-781801-14-2024 Discharge summary Author Gabriella [facility] December 02, 2023 1:21pm Note Date/Time December 02, 2023 8 :23am [facility] Medical Records Department [address] [place] [address] Emergency Department Summary 12/02/23 MR#: [id number] Acct: [id number] Name: ANGÉLICA YO Rep #:[id number] 6 : 1955 68 From: Gabriella Green PCP: Dr. Daron Benton MD Status:ADM IN Location: [address] History of Present Illness Chief Complaint: [...] any urinary symptoms. Her neurologist is in [place]. [facility] Medical History Angina pectoris Bilateral [...] Stomach morphine AdvReac Nausea Verified 11/26/23 12:47 Zofuodx-ADG-XjC Reductase AdvReac Nausea Verified 11/26/23 12:47 Inhibitor [Hgixrev-Zah-Lwr Reductase Inhibitor] Family History Mother Cancer CAD [...] off the bed. Is able to do kwqbjr-aa-rhzm but has bilateral ataxia with it. Too [...] to touch my finger her nose with cmpvvr-jy-utrg. Her symptoms started at least 24 hours [...] % (Auto) 56.3 Lymph % (Auto) 28.5 Drew % (Auto) 12.7 H Eos % (Auto) [...] Clarity Clear Urine pH 6.5 Ur Specific [place] 1.015 Urine Protein 15 H Urine Glucose [...] Multiple sclerosis Disposition Disposition: Acute Care Hospital [facility] Discharge Date/Time: 12/02/23 12:36 What to do if you have Problems For any increased pain, shortness of breath, bleeding, nausea or vomiting, chestpain, or any unexpected problems, contact your Primary Care Provider. Call [facility] ([phone]) or report to the closest Emergency Room. Call 911 if necessary. 12/02/23 1321 <Electronically signed by Gabriella Simpson DO> Cosigner Signature (if applicable): CC: Dr. Daron Benton MD ~ Signed [facility] Work Phone: 1(596) 766-946501-14-2024 History and physical note Author Roman Mckeon [facility] December 02, 2023 11:53am Note Date/Time December 02, 2023 1 1:43am [facility] Medical Records Department [address] [place] [address] H&P Exam - Hospitalist 12/02/23 1140 MR#: [id number] Acct: [id number] Name: ANGÉLICA YO Rep #:[id number] 9 : 1955 68 From: Roman Mckeon MD PCP: Dr. Daron Benton MD Status:ADM IN Location: [facility] SH222-5 HPI - General General Date of Admission: [...] to a monitored bed for further management [facility] Medical History Angina pectoris [...] Stomach morphine AdvReac Nausea Verified 11/26/23 12:47 Pokvsmi-ILO-OrO Reductase AdvReac Nausea Verified 11/26/23 12:47 Inhibitor [Bysqdix-Jus-Typ Reductase Inhibitor] Family History Mother Cancer CAD [...] % (Auto) 56.3, Lymph % (Auto) 28.5, Drew % (Auto) 12.7 H, Eos % (Auto) [...] Clarity Clear, Urine pH 6.5, Ur Specific [place] 1.015, Urine Protein 15 H, Urine Glucose [...] the right lower lobe. Electronically Signed: Chago Mcinytre MD at 9:06 EST , Assessment & [...] 18 minutes. Charges/Coding Visit Charges Inpatient E&M: 00319 Init Hosp L3 Procedures Hospitalists Procedures: 64816 Advncd Care Plan 30 Min 12/02/23 1153 <Electronically signed by Roman Mckeon MD> Cosigner Signature (if applicable): CC: Dr. Roman Mckeon MD; Dr. Daron Benton MD~ Signed [facility] Work Phone: 1(558) 503-444001-09-2024 Discharge summary Author Ramírez Onofre [facility] November 27, 2023 11:55am Note Date/Time November 27, 2023 9: 40am [facility] Medical Records Department [address] [place] [address] Emergency Department Summary 11/27/23 MR#: [id number] Acct: [id number] Name: ANGÉLICA YO Rep #:[id number] 3 : 1955 68 From: Ramírez Onofre [...] Prior similar symptoms: No Recent Illness/Hospitalization: No PFSH PFS Medical History Angina pectoris Bilateral carotid artery [...] Stomach morphine AdvReac Nausea Verified 11/26/23 12:47 Gqcbwoa-MTU-XbW Reductase AdvReac Nausea Verified 11/26/23 12:47 Inhibitor [Uabaebc-Jlx-Ifs Reductase Inhibitor] Family History Mother Cancer CAD [...] breast biopsy History of left heart catheterization (03/09/15) History of left-sided carotid endarterectomy History of [...] moving all 4 extremities. 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 Dorsi and plantarflexion [...] 71.7 H Lymph % (Auto) 16.8 L Drew % (Auto) 9.9 Eos % (Auto) 0.4 [...] Signed: Anselmo Muñiz MD at 11:19 EST Reading Location ID and State: [facility] / [place] Tel , Service support , Chest X-Ray 11/27/23 10:00 IMPRESSION: No [...] rate of 50 no acute signs of DC or ischemia. No significant change from November [...] your Primary Care Provider. Call [facility] ([phone]) or report to the closest Emergency Room. Call 911 if necessary. 11/27/23 1155 <Electronically signed by Ramírez Onofre MD> Cosigner Signature (if applicable): CC: Dr. Daron Benton MD ~ Signed [facility] Work Phone: 1([phone]) 564-584801-03-2024 Discharge summary Author Sachin Murillo [facility] November 21, 2023 9:07am Note Date/Time November 21, 2023 8: 56am [facility] Medical Records Department [address] [place] [address] Instructions for Home/Discharge Instructions 11/21/23 0855 MR#: [id number] Acct: [id number] Name: ANGÉLICA YO Rep #:[id number] 2 : 1955 68 From: Sachin chan [...] MD; Dr. Daron Benton MD ~ Signed [facility] Work Phone: 1(740) 402-949001-02-2024 Progress note Author Sachinwhitney Murillo [facility] November 20, 2023 10:23am Note Date/Time November 20, 2023 10 :23am [facility] Medical Records Department [address] [place] [address] Progress Note - Hospitalist 11/20/23 1021 MR#: [id number] Acct: [id number] Name: ANGÉLICA YO Rep #:[id number] 6 : 1955 68 From: Sachin chan MD PCP: Dr. Daron Benton MD Status:ADM IN Location: [place] [address] Subjective Subjective Still feels fatigued and unwell [...] 81.9 H, Lymph % (Auto) 5.9 L, Drew % (Auto) 9.8, Eos % (Auto) 0.1, [...] Physician: Daron Benton Performed By: Noa Peace, MARY, RVT Chest X-Ray 11/19/23 05:15 IMPRESSION: No significant interval change in focal opacity in the right mid chest, which may represent focal pneumonia or pulmonary nodule. Recommend follow-up to resolution. Electronically Signed: Angle Reynoso MD at 14:56 EST Reading Location ID and State: [address] [place] [address] Tel , Service support , Physical Exam [...] DVT: SCDs Charges/Coding Visit Charges Inpatient E&M: 71746 Subs Hosp L2 11/20/23 1023 <Electronically signed by Sachin Murillo MD> Cosigner Signature (if applicable): CC: ~ Signed [facility] Work Phone: 1(480) 804-249701-01-2024 Progress note Author Sachin Murillo [facility] November 19, 2023 10:52am Note Date/Time November 19, 2023 10 :52am [facility] Medical Records Department [address] [place] [address] Progress Note - Hospitalist 11/19/23 1046 MR#: [id number] Acct: [id number] Name: ANGÉLICA YO Rep #:[id number] 6 : 1955 68 From: Sachin chan MD PCP: Dr. Daron Benton MD Status:ADM IN Location: [place] [address] Subjective Subjective Doing well, no issues overnight. [...] % (Auto) 66.4, Lymph % (Auto) 19.4, Drew % (Auto) 12.9 H, Eos % (Auto) [...] Clarity Clear, Urine pH 6.0, Ur Specific [place] 1.015, Urine Protein Negative, Urine Glucose (UA) [...] (Auto) 67.7, Lymph % (Auto) 17.1 L, Drew % (Auto) 13.3 H, Eos % (Auto) [...] 13:04 EST Reading Location ID and State: [address] [place] [address] Tel , Service support , Physical Exam [...] DVT: SCDs Charges/Coding Visit Charges Inpatient E&M: 13429 Subs Hosp L2 11/19/23 1052 <Electronically signed by Sachin Murillo MD> Cosigner Signature (if applicable): CC: ~ Signed [facility] Work Phone: 1(777) 377-347112-31-2023 History and physical note Author Sommer Resendiz [facility] November 18, 2023 8:55pm Note Date/Time November 18, 2023 2:14pm [facility] Medical Records Department [address] [place] [address] H&P Exam - Hospitalist 11/18/23 1413 MR#: [id number] Acct: [id number] Name: ANGÉLICA YO Rep #:[id number] 5 : 1955 68 From: Sommer Resendiz MD PCP: Dr. Daron Benton MD Status:ADM IN Location: [place] [address] HPI - General General Date of Admission: [...] injury associated to now represents to the [facility] ED on 11/18/23 with history of [...] Stomach morphine AdvReac Nausea Verified 11/15/23 11:27 Rywzcqn-JYW-YvA Reductase AdvReac Nausea Verified 11/15/23 11:27 Inhibitor [Iczpahp-Qfu-Dbv Reductase Inhibitor] Family History Mother Cancer CAD [...] % (Auto) 66.4, Lymph % (Auto) 19.4, Drew % (Auto) 12.9 H, Eos % (Auto) [...] Clarity Clear, Urine pH 6.0, Ur Specific [place] 1.015, Urine Protein Negative, Urine Glucose (UA) [...] injury associated to now represents to the [facility] ED on 11/18/23 with history of [...] Code status. Charges/Coding Visit Charges Inpatient E&M: 66236 Init Hosp L3 11/18/232054 <Electronically signed by Sommer Resendiz MD> Cosigner Signature (if applicable): CC: Dr. Sommer Resendiz MD; Dr. Daron Benton MD~ Signed [facility] Work Phone: 1([phone]) 264-684112-31-2023 Discharge summary Author Michele Kebede [facility] November 18, 2023 3:08pm Note Date/Time November 18, 2023 12:03pm [facility] Medical Records Department [address] [place] [address] Emergency Department Summary 11/18/23 MR#: [id number] Acct: [id number] Name: ANGÉLICA YO Rep #:[id number] 0 : 1955 68 From: Michele Kebede [...] states she has never had atrial fibrillation. [facility] Medical History Angina pectoris Bilateral [...] Stomach morphine AdvReac Nausea Verified 11/15/23 11:27 Efgfsem-AUW-DoT Reductase AdvReac Nausea Verified 11/15/23 11:27 Inhibitor [Qbqxtpv-Yev-Cfr Reductase Inhibitor] Family History Mother Cancer CAD [...] % (Auto) 66.4 Lymph % (Auto) 19.4 Drew % (Auto) 12.9 H Eos % (Auto) [...] Clarity Clear Urine pH 6.0 Ur Specific [place] 1.015 Urine Protein Negative Urine Glucose (UA) [...] 13:04 EST Reading Location ID and State: [facility] / [place] Tel , Service support , EKG Initial [...] Influenza A Disposition Disposition: Acute Care Hospital [facility] What to do if you have Problems For any increased pain, shortness of breath, bleeding, nausea or vomiting, chestpain, or any unexpected problems, contact your Primary Care Provider. Call [facility] ([phone]) or report to the closest Emergency Room. Call 911 if necessary. 11/18/23 1508 <Electronically signed by Michele Kebede MD> Cosigner Signature (if applicable): CC: Dr. Daron Benton MD ~ Signed [facility] Work Phone: 1([phone] 553-651512-31-2023 Discharge summary Author Michele Kebede [facility] November 18, 2023 3:08pm Note Date/Time November 18, 2023 12:03pm [facility] Medical Records Department [address] [place] [address] Emergency Department Summary 11/18/23 MR#: [id number] Acct: [id number] Name: ANGÉLICA YO Rep #:[id number] 0 : 1955 68 From: Michele Kebede [...] states she has never had atrial fibrillation. [facility] Medical History Angina pectoris Bilateral [...] Stomach morphine AdvReac Nausea Verified 11/15/23 11:27 Aucpjoo-UPI-BkL Reductase AdvReac Nausea Verified 11/15/23 11:27 Inhibitor [Jrphhsz-Kse-Sxh Reductase Inhibitor] Family History Mother Cancer CAD [...] % (Auto) 66.4 Lymph % (Auto) 19.4 Drew % (Auto) 12.9 H Eos % (Auto) [...] Clarity Clear Urine pH 6.0 Ur Specific [place] 1.015 Urine Protein Negative Urine Glucose (UA) [...] Influenza A Disposition Disposition: Acute Care Hospital [facility] What to do if you have Problems For any increased pain, shortness of breath, bleeding, nausea or vomiting, chestpain, or any unexpected problems, contact your Primary Care Provider. Call [facility] ([phone]) or report to the closest Emergency Room. Call 911 if necessary. 11/18/23 1508 <Electronically signed by Michele Kebede MD> Cosigner Signature (if applicable): CC: Dr. Daron Benton MD ~ Signed [facility] Work Phone: 1(854) 210-800312-28-2023 History and physical note Author Sommer Resendiz [facility] November 15, 2023 3:44pm Note Date/Time November 15, 2023 3:14pm [facility] Medical Records Department [address] [place] [address] H&P Exam - Hospitalist 11/15/23 1512 MR#: [id number] Acct: [id number] Name: ANGÉLICA YO Rep #:[id number] 3 : 1955 68 From: Sommer Resendiz MD PCP: Dr. Daron Benton MD Status:ADM [facility] - General General Date of Admission: 11/15/23 Date of Service: 11/15/23 Chief Complaint: Poor intake, malaise, fatigue, weakness, N/V/D HPI Narrative The patient is a 68 y/o F w/ PMHx: Hx Cerebral aneurysm, Chronic pain syndrome, HTN, HLD, Hx TIA, Multiple Sclerosis, Nonobstructive CAD, Psoriatic arthritis, PAD, NS SVT, GERD, Hypothyroidism, Carotid disease, Tobacco use who presents to the [facility] ED on 11/15/23 with history of [...] x 1 and 1 L normal saline. [facility] Medical History Angina pectoris [...] Stomach morphine AdvReac Nausea Verified 11/15/23 11:27 Ymxvqak-OFP-DgH Reductase AdvReac Nausea Verified 11/15/23 11:27 Inhibitor [Ztewuvv-Xpw-Kio Reductase Inhibitor] Family History Mother Cancer CAD [...] 70.4 H, Lymph % (Auto) 14.3 L, Drew % (Auto) 14.5 H, Eos % (Auto) [...] disease, Tobacco use who presents to the [facility] ED on 11/15/23 with history of [...] 16 minutes. Charges/Coding Visit Charges Inpatient E&M: 03150 Init Hosp L3 Procedures Hospitalists Procedures: 13726 Advncd Care Plan 30 Min 11/15/23 1544 <Electronically signed by Sommer Resendiz MD> Cosigner Signature (if applicable): CC: Dr. Sommer Resendiz MD; Dr. Daron Benton MD~ Signed [facility] Work Phone: 1([phone]) 756-671512-28-2023 Discharge summary Author Michele Kebede [facility] November 15, 2023 3:10pm Note Date/Time November 15, 2023 12:02pm [facility] Medical Records Department [address] [place] [address] Emergency Department Summary 11/15/23 MR#: [id number] Acct: [id number] Name: ANGÉLICA YO Rep #:[id number] 2 : 1955 68 From: Michele Kebede [...] at home and those have been low. Brenna have been adjusting her medicine because she [...] because she cannot take the strong medications. [facility] Medical History Angina pectoris Bilateral [...] Stomach morphine AdvReac Nausea Verified 11/15/23 11:27 Bdqjiue-OCO-DjJ Reductase AdvReac Nausea Verified 11/15/23 11:27 Inhibitor [Hwklmgx-Yue-Wpu Reductase Inhibitor] Family History Mother Cancer CAD [...] 70.4 H Lymph % (Auto) 14.3 L Drew % (Auto) 14.5 H Eos % (Auto) [...] ventricular ectopy. No acuteST elevation or depression. OK interval, QRS duration are normal. QTc is [...] Provider] - Disposition Disposition: Acute Care Hospital [facility] What to do if you have Problems For any increased pain, shortness of breath, bleeding, nausea or vomiting, chestpain, or any unexpected problems, contact your Primary Care Provider. Call [facility] ([phone]) or report to the closest Emergency Room. Call 911 if necessary. 11/15/23 1510 <Electronically signed by Michele Kebede MD> Cosigner Signature (if applicable): CC: Dr. Daron Benton MD ~ Signed [facility] Work Phone: 1(726) 724-318612-28-2023 Discharge summary Author Michele Kebede [facility] November 15, 2023 3:10pm Note Date/Time November 15, 2023 12:02pm [facility] Medical Records Department [address] [place] [address] Emergency Department Summary 11/15/23 MR#: [id number] Acct: [id number] Name: ANGÉLCIA YO Rep #:[id number] 2 : 1955 68 From: Michele Kebede [...] because she cannot take the strong medications. [facility] Medical History Angina pectoris Bilateral [...] Stomach morphine AdvReac Nausea Verified 11/15/23 11:27 Icukcat-XKX-JmZ Reductase AdvReac Nausea Verified 11/15/23 11:27 Inhibitor [Wtbhkdb-Xsl-Byn Reductase Inhibitor] Family History Mother Cancer CAD [...] 70.4 H Lymph % (Auto) 14.3 L Drew % (Auto) 14.5 H Eos % (Auto) [...] ventricular ectopy. No acuteST elevation or depression. OK interval, QRS duration are normal. QTc is [...] Provider] - Disposition Disposition: Acute Care Hospital [facility] What to do if you have Problems For any increased pain, shortness of breath, bleeding, nausea or vomiting, chestpain, or any unexpected problems, contact your Primary Care Provider. Call [facility] ([phone]) or report to the closest Emergency Room. Call 911 if necessary. 11/15/23 1510 <Electronically signed by Michele Kebede MD> Cosigner Signature (if applicable): CC: Dr. Daron Benton MD ~ Signed [facility] Work Phone: 1(416) 771-564911-17-2023 History of Present illness Narrative* Kristopher Main MD - 10/05/2023 3:00 PM EST Images from the original note were not included. [facility] [address] [facility] [address] Dept: [phone] Dept Loc: [phone] Patient was seen today via Telehealth by [...] that they are currently in the state [facility]. If the patient is a minor,permission [...] TSH VITAMIN B12: No results found for: RJTIWFYG38 No results found for: PHENYTOIN, PHENOBARB, VALPROATE, CBMZ No results found for: LEVETIRACETA, FERRITIN, CRP, DENNIS, ANCA FERRITIN: No results found for: FERRITIN @RESULTINGLABINFO@ No components found for: TOPIRA No results found for: CHRISTIANO, IMMUNOGLOBUL, OLIGOBANDS No results found for: EZP21PB, HEPCAB No results found for: CRP, ANATITER, ANCA ---- @LASTAPPOINTMENTTHISPROV@ ECG 12 lead SINUS BRADYCARDIA PROBABLE LEFT ATRIAL ABNORMALITY No previous ECG available for comparison Electronically Signed On 04-05-2023 7:42:10 EDT by Juvenal Benton Patient Name: ANGÉLICA YO : 1955 [facility]#: [id number] Exam Date/Time: 04/04/2023 15:32 Procedure: CT HEAD [...] volume rendered reformats were obtained using a thesixtyone workstation. Review of the axial source data [...] of the major intracranial arteries at the [place]. 6. No hemodynamically significant narrowing [...] and arranging for studies. documented in this [facility]11-17-2023 Telephone encounter Note* Telephone Encounter - Yanely Kwon MA - 10/05/2023 12:58 PM EST Patient has been scheduled and records are being faxed over. [id number] Miscellaneous Notes* Telephone Encounter - Yanely Kwon MA - 10/05/2023 12:58 PM EST Patient has been scheduled and records are being faxed over. * Telephone Encounter - Kristopher Main MD - 10/05/2023 12:36 PM EST Get records from [facility]. OK to add her on at 3 PM as a real or a virtual visit * Telephone Encounter - Ольга Pa - 10/05/2023 9:20 AM EST Name of caller: Angélica Contact phone number: [phone] Relationship to Patient: patient Provider: DR Main [...] return their call: Yes documented in this encounterSAdena Fayette Medical [id number] Telephone encounter Note* Telephone Encounter - Kristopher Main MD - 10/05/2023 12:36 PM EST Get records from [facility]. OK to add her on at 3 PM as a real or a virtual visit [place] [id number] Telephone encounter Note* Telephone Encounter - Ольга Pa - 10/05/2023 9:20 AM EST Name of caller: Angélica Contact phone number: [phone] Relationship to Patient: patient Provider: DR Main [...] business hours to return their call: Yes [facility] [id number] Telephone encounter Note* Telephone Encounter - Annalee Ram - 06/15/2023 9:41 AM EDT Medication name: baclofen (Lioresal) 20 MG tablet [[id number]] Order Details Dose: 20 mg Route: Oral [...] Original Order: baclofen (Lioresal) 20 MG tablet [[id number]] Providers Ordering and Authorizing Provider: Kristopher Main MD NEGRA #: [id number] Ordering User: Kristopher Main MD Pharmacy [id number] [address] NEGRA #: -- Date of last office visit: 04/04/23 Date of next office visit: None Date of last refill: (see medication tab): 10/05/22 Updated/Validated preferred pharmacy: Yes Patient instructed to contact the pharmacy prior to picking up the medication: Yes [facility] [id number] Miscellaneous Notes* Telephone Encounter - Annalee Ram - 06/15/2023 9:41 AM EDT Medication name: baclofen (Lioresal) 20 MG tablet [[id number]] Order Details Dose: 20 mg Route: Oral [...] Original Order: baclofen (Lioresal) 20 MG tablet [[id number]] Providers Ordering and Authorizing Provider: Kristopher Main MD NEGRA #: [id number] Ordering User: Kristopher Main MD [facility]acy [id number] [address] NEGRA #: -- Date of last office visit: 04/04/23 Date of next office visit: None Date of last refill: (see medication tab): 10/05/22 Updated/Validated preferred pharmacy: Yes Patient instructed to contact the pharmacy prior to picking up the medication: Yes documented in this encounterSAdena Fayette Medical [id number] Telephone encounter Note* Telephone Encounter - Kristopher Main MD - 06/04/2023 4:04 PM EDT Rx renewed [id number] Miscellaneous Notes* Telephone Encounter - Kristopher Main [...] up the medication: Yes documented in this encounterSAdena Fayette Medical [id number] Telephone encounter Note* Telephone Encounter - Bina Snow - 06/04/2023 3:31 PM EDT Please advise. [id number] Telephone encounter Note* Telephone Encounter - Jeni [...] to picking up the medication: Yes [id number] Hospital Discharge instructions Additional Instructions 1. Do not place an Jean-Claude wrap on your foot this probably contributed to the swelling. 2. Apply ice to calf 6-10 times a day for the next 3 to [facility] Work Phone: 1(137) 661-111012-22-2022 Hospital Discharge instructions Patient Education 11/09/2022 12:48:32 [...] and water are not available, use hand real estate assessor. ?Change your dressing as told by your [...] the contrast dye from your body. Take ffsf-rvh-ybeuyir and prescription medicines only as told by [...] 05/24/2006 Document Revised: 10/18/2018 Document Reviewed: 10/10/2017 datango Patient Education 2020 [employer]. 11/09/2022 12:48:21 Moderate Conscious Sedation, Adult, Care [...] until you are awake and alert. Take eymo-fux-xjhpdyd and prescription medicines only as told by [...] 08/26/2014 Document Revised: 10/18/2018 Document Reviewed: 02/24/2017 datango Patient Education 2020 [employer]. Follow Up Care 10/27/2022 15:58:56 With:TYE BARNETT MD, [facility], Surgery, Vascular Surgeons Address: [facility] [address] [address] When: Unknown Comments:Follow-up as scheduled [facility] 12-22-2022 Summary of episode note Discharge Instructions Thank you for allowing [facility] to assist you with your healthcare needs. The following is importantdischarge information regarding your hospital visit. What to do next Follow Up Appointments Follow Up with TYE BARNETT MD, [facility], Surgery, Vascular Surgeons When Why: Follow-up as scheduled Where: [facility] [address] [address] The Following Activity and Diet Have [...] and water are not available, use hand real estate assessor. ? Change your dressing as told by [...] the contrast dye from your body. Take drbw-ecc-ezekyex and prescription medicines only as told by [...] 05/24/2006 Document Revised: 10/18/2018 Document Reviewed: 10/10/2017 [employer]ango Patient Education 2020 [employer] Moderate Conscious Sedation, Adult, Care After [...] until you are awake and alert. Take nipb-wdu-pilthwq and prescription medicines only as told by [...] 08/26/2014 Document Revised: 10/18/2018 Document Reviewed: 02/24/2017 [employer]ango Patient Education 2020 [employer] Additional Information VACCINATE! IT SAVES LIVES! Members of the community who have not yet received the COVID-19 vaccine and would like to receive it can visit one of [facility] vaccine clinics. There are many vaccine clinic locations within the [facility]. For locations and available times, please visit [email or web address]/. It is important to note that some COVID mobile vaccine clinics are held outdoors and may be canceled in rainy or stormy conditions. To learn more about pediatric vaccinations (ages 5-11), we invite you to visit the [facility] webpage. https://[email or web address]/pages/[email or web address]-Vksqh-Pzwjzddceuc-Mmnodshrjy-Uukka-Evg stions.htmlTo learn more about the COVID-19 vaccine, we invite you to visit the [facility] website for a list of frequently asked questions. [email or web address]-qhy-Ftlkprfz/rulvw-Jttaaar-Bruoeqnhkk _Asked-Questions.pdf [facility] Access Instructions: Stay connected with your healthcare team and access your personal medical information anytime with the [facility].If you would like a full copy of your medical records, please contact the [facility] Medical Records Department, Sunday through Sunday between 8a.m. and 4:30p.m. Please follow the directions below to access the portal: 1.Access the email account you provided upon registration to the hospital.2.Look for an invitation email from [facility].3.Open the email and access the invitation link: Accept Invitation to [facility]4.Fill in the required duarte to create your account. Sign into [email or web address] with your username and password that you [...] you will allow to register on the [facility] Patient Portal for access to your information. You can also access the [facility] Patient Portal on the Smart Voicemail. Simply click on Health Records under [employer] and then click on the [facility] logo. [...] Call your local pharmacy or go to http://Cloud [email or web address]/6F8Xi2h to find one close to you.3.Make use of household items: Use cat litter or old coffee grounds to dispose medications if other options arenot available. Mix your drugs with these household products, seal them in an airtight container andthrow it into the garbage. Call [facility]: [phone] to be sure your drugs can be [...] aware that I should contact my doctor. 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 [facility] [id number] Note ORIGINAL Images acquired, not reported on this accession number.[facility] 04-12-2021 NoteHNO ID: [id number] Author: RT Sandra(Mayda) Service: ? Author Type: Polysomnographic Technician Type: Progress Notes Filed: 04/12/2021 2:14 PM [...] Yo DATE: April 12, 2021 TIME: 2:13 [facility]03-24-2021 NoteHNO ID: [id number] Author: Alexander Regalado Service: ? Author Type: [...] of wound at high risk for bone exposure.[facility]01-07-2021 History of Present illness Narrative* Tammy Cornejo (Rt), [facility] - 11/25/2020 3:10 PM EST Radiology [...] 25, 2020 3:08 PM documented in this encounterAdena Health System note Author Nao Raza [facility] November 16, 2023 10:43am Note Date/Time November 16, 2023 10:43am [facility] Medical Records Department [address] [place] [address] Counseling Note - Pharmacy 11/16/23 1043 MR#: [id number] Acct: [id number] Name: ANGÉLICA YO Rep #:[id number] 0 : 1955 68 From: Noa Raza PCP: Dr. Daron Benton MD Status:ADM IN Y Location: [place] [address] Pharmacy [place] Med Reconciliation Pharmacy Service has performed discharge [...] 11/16/23 11/16/23 1043 <Electronically signed by Noa Rzaa > Date _ Noa Raza Cosigner Signature (if applicable): Date ____ CC: ~ Signed [facility] Work Phone: Consult note Author Christel Miranda [facility] November 21, 2023 11:56am Note Date/Time November 21, 2023 11 :56am [facility] Medical Records Department [address] [place] [address] Counseling Note - Pharmacy 11/21/23 1155 MR#: [id number] Acct: [id number] Name: ANGÉLICA YO Rep #:[id number] 2 : 1955 68 From: Christel Miranda PCP: Dr. Daron Bneton MD Status:ADM IN Location: [place] [address] Pharmacy [facility] Pharmacy Service has performed discharge medication [...] Signature (if applicable): Date CC: ~ Signed [facility] Work Phone: Consult note Author Christel Miranda [facility] February 25, 2024 4:09pm Note Date/Time February 25, 2024 4:08 pm [facility] Medical Records Department [address] [place] [address] Counseling Note - Pharmacy 02/25/24 1607 MR#: [id number] Acct: [id number] Name: ANGÉLICA YO Rep #:[id number] 2 : 1955 68 From: Christel Miranda PCP: Dr. Daron Benton MD Status:ADM IN Location: [facility] [id number] Pharmacy [facility] Pharmacy Service has performed discharge medication [...] Signature (if applicable): Date CC: ~ Signed [facility] Work Phone: Consult note Author Christel Miranda [facility] Note Date/Time April 22, 2025 4:00p [facility] Medical Records Department [address] [place] [address] Counseling Note - Pharmacy 04/22/25 1559 MR#: [id number] Acct: [id number] Name: ANGÉLICA YO Rep #:[id number] 8 : 1955 69 From: Christel Miranda PCP: Dr. Daron Benton MD Status:ADM IN Y Location: [facility] PR708-5 Pharmacy [facility] Counseling Pharmacy Service has performed discharge [...] Signature (if applicable): Date CC: ~ Signed [facility] Work Phone: discharge summary Author Hi Garcia [facility] November 16, 2023 10:38am Note Date/Time November 16, 2023 10:33am [facility] Medical Records Department [facility] [place] [address] Instructions for Home/Discharge Instructions 11/16/23 1032 MR#: [id number] Acct: [id number] Name: ANGÉLICA YO Rep #:[id number] 1 : 1955 68 From: Hi Llanos [...] Garcia MD>Hi Garcia MD CC: Dr. Sommer Resendzi MD; Dr. Daron Benton MD ~ Signed [facility] Work Phone: Discharge summary Author Hi Garcia [facility] November 16, 2023 10:51am Note Date/Time November 16, 2023 10:50am [facility] Medical Records Department [address] [place] [address] Discharge Summary 11/16/23 1043 MR#: [id number] Acct: [id number] Name: ANGÉLICA YO Rep #:[id number] 7 : 1955 68 From: Hi Llanos PCP: Dr. Daron Benton MD Status:ADM IN Location: [place] [address] Providers Date of Admission: 11/15/23 Date of [...] y/o F who was admitted on the MedSurg floor for nausea, vomiting and diarrhea for [...] 70.4 H, Lymph % (Auto) 14.3 L, Drew % (Auto) 14.5 H, Eos % (Auto) [...] Sl. Cloudy, Urine pH 5.0, Ur Specific [place] 1.015, Urine Protein 15 H, Urine Glucose [...] Neut % (Auto) 57.7, Lymph % (Auto) 25.5,Drew % (Auto) 15.7 H, Eos % (Auto) [...] to go home. Visit Charges Inpatient E&M: 60882 Disch Hosp >30min 11/16/23 1051 <Electronically signed by Hi Garcia MD> Cosigner Signature (if applicable): CC: Dr. Daron Benton MD; Dr. Hi Garcia MD~ Signed [facility] Work Phone: Discharge summary Author Sachin Murillo [facility] November 21, 2023 11:01am Note Date/Time November 21, 2023 11 :01am [facility] Medical Records Department [address] [place] [address] Discharge Summary 11/21/23 1057 MR#: [id number] Acct: [id number] Name: ANGÉLICA YO Rep #:[id number] 1 : 1955 68 From: Sachin chan MD PCP: Dr. Daron Benton MD Status:ADM IN Location: [place] [address] Providers Date of Admission: 11/18/23 Primary Care [...] injury associated to now represents to the [facility] ED on 11/18/23 with history of [...] % (Auto) 62.0, Lymph % (Auto) 14.3L, Drew % (Auto) 18.8 H, Eos % (Auto) [...] Self Care Charges/Coding Visit Charges Inpatient E&M: 36697 Disch Hosp >30min 11/21/23 1101 <Electronically signed by Sachin Murillo MD> Cosigner Signature (if applicable): CC: Dr. Daron Benton MD; Dr. Sachin Murillo MD~ Signed [facility] Work Phone: Discharge summary Author Sachin Murillo [facility] December 07, 2023 2:21pm Note Date/Time December 07, 2023 2 :21pm [facility] Medical Records Department [address] [place], [place] [address] [place] [address] Discharge Summary 12/07/23 1417 MR#: [id number] Acct: [id number] Name: ANGÉLICA YO Rep #:[id number] 0 : 1955 68 From: Sachin chan MD PCP: Dr. Daron Benton MD Status:ADM IN Location: ICU ICU02-1 Providers Date of Admission: 12/02/23 Primary Care Physician: Dr. Daron Benton MD Consultations 12/02/23 12:37 Consult: Tele-Neurology Routine Consulting Provider: [facility] Reason for Consult: Possible MS flareup EMERGENT Consult: No Notified: Yes Date Notified: 12/02/23 Time Notified: 11:39 Method of Notification: Answering Service Nursing Unit Staff Notify [facility] of Tele-Neurology Consult: Yes 12/04/23 06:18 Consult: Seam Stay Stitcher / Pulmonary Medicine Routine Consulting Provider: Intensivists/Pulmonary [...] 71.0 H, Lymph % (Auto) 17.9 L, Drew % (Auto) 9.8, Eos % (Auto) 0.1, [...] Rascon; Kirsten Azevedo; Joseph Desai; Samina Mortensen; Lety,Keyona Instructions Additional Instructions / Restrictions: Follow-up with [...] Health Service Charges/Coding Visit Charges Inpatient E&M: 02882 Disch Hosp >30min 12/07/23 1421 <Electronically signed by Sachin Murillo MD> Cosigner Signature (if applicable): CC: Dr. Daron Benton MD; Dr. Sachin Murillo MD~ Signed [facility] Work Phone: Discharge summary Author Yasmani Haynes [facility] Note Date/Time June 03, 2025 7:47 am [facility] Medical Records Department [address] [place] [address] Emergency Department Summary 06/03/25 MR#: [id number] Acct: [id number] Name: ANGÉLICA YO Rep #:[id number] 3 : 1955 69 From: Yasmani Haynes DO PCP: Dr. Daron Benton MD Status:REG ER Location: ED HPI History of Present Illness Chief Complaint: Edema Informant: patient Narrative Narrative: Patient is a 69-year-old female with past medical history of paroxysmal atrial fibrillation currently on Eliquis as well as recent GI bleed requiring cauterization of intestinal ulcers and acute blood loss anemia. She has a history of congestive heart failure and chronic pain. She states that she has noticed increased swelling to her legs and feet over the last few days. Today she took her normal pain medication but did not have any improvement of the painin her feet from the increased swelling and as she could not sleep because of the persistent pain comes in for evaluation. [facility] Medical History Hypertensive emergency NSTEMI, initial episode of care Emphysema of lung Smoking greater than 30 pack years New onset atrial fibrillation [place] (dyspnea on exertion) Atherosclerotic heart disease of [place] coronary artery without angina pectoris Cardiac murmur [...] QDAY PRN indigestio n 11/24/24 03/19/25 History aspirin 81 mg tablet,delayed 81 mg PO BREAKFAST heart health 12/11/24 03/19/25 Rx release #30 tabs carvedilol 3.125 mg tablet 3.125 mg PO BIDCM heart #18 0 tabs 03/03/25 04/21/25 Rx apixaban 5 mg tablet (Eliquis) 5 mg PO Q12H anticoagul ation #180 03/09/2503/19 Rx tabs cholecalciferol (vitamin D3) 125 125 mcg PO DAILY supp lement 04/18/25 Unknown History mcg (5,000 unit) capsule docusate sodium 100 mg capsule 100 mg PO BID stool sof tener 7 04/18/25 Unknown Rx (Colace) days #14 caps doxepin 10 mg/mL oral concentrate 5 - 10 mg PO QHS Unknown History naloxegol 25 mg tablet (Movantik) 25 mg PO DAILY 30 da ys #30 tabs 04/18/25 Unknown Rx rosuvastatin 10 mg tablet 10 mg PO QHS hld 04/18/25 Un known History pantoprazole 40 mg tablet,delayed 40 mg PO DAILY 90 da ys #90 tabs 04/22/25 Unknown Rx release (Protonix) polysaccharide iron complex 150 mg 150 mg PO DAILY 90 days #90 caps 04/22/25 Unknown Rx iron capsule (Ferrex) potassium chloride 20 mEq/15 mL 20 meq (15 mL) PO JANE Y 30 days 04/22/25 Unknown Rx oral liquid #450 mL amlodipine 2.5 mg tablet 2.5 mg PO QDAY 05/13/25 Unkn own History lisinopril 10 mg tablet 10 mg PO QDAY blood pressure 05/13/25 Unknown History capsaicin 0.1 % topical cream 1 applic topical TID #60 grams 05/19/25 Unknown Rx misoprostol 100 mcg tablet PO 05/19/25 Unknown History oxycodone 5 mg tablet 5 mg PO Q6H PRN pain 3 days #12 05/19/25 Unknown Rx tabs Allergy/AdvReac Type Severity Reaction Status Date / Time colestipol (From Colestid) Allergy Mild unknown Verified 06/03/25 02:30 pregabalin (From Lyrica) Allergy Mild Hives Verified 06/03/25 02:30 amitriptyline Allergy Rash Verified 06/03/25 02:30 temazepam (From Restoril) AdvReac Mild Nausea/Vom/ Verified 06/03/25 02:30 Diarrhea Antihistamines - Alkylamine AdvReac Nausea/Vom/ Verified 06/03/25 02:30 Diarrhea Antihistamines - Ethanolamine AdvReac Nausea/Vom/ Verified 06/03/25 02:30 Diarrhea Antihistamines - AdvReac Nausea/Vom/ Verified 06/03/25 02:30 Ethylenediamine Diarrhea Antihistamines - Piperazine AdvReac Nausea/Vom/ Verified 06/03/25 02:30 Diarrhea Antihistamines - Piperidine AdvReac Nausea/Vom/ Verified 06/03/25 02:30 Diarrhea aspirin AdvReac I'M ON Verified 06/03/25 02:30 BLOOD THINNERS codeine AdvReac Nausea Verified 06/03/25 02:30 Corticosteroids AdvReac Upset Verified 06/03/25 02:30 (Glucocorticoids) Stomach morphine AdvReac Nausea Verified 06/03/25 02:30 Uomqdlg-BGB-HbL Reductase AdvReac Nausea Verified 06/03/25 02:30 Inhibitor (Sgaowct-Jbj-Ntt Reductase Inhibitor) Family History Mother Cancer CAD [...] or fever(s) Eyes Eyes: Denies blurry vision or change in vision ENT ENT ED: Denies sore throat Cardiovascular Cardiovascular: Reports other Details: Negative syncope ; Denies chest pain or palpitations Respiratory/Chest Respiratory/Chest: Denies cough or dyspnea Gastrointestinal Gastrointestinal: Denies abdominal pain, diarrhea, melena, nausea or vomiting Genitourinary Genitourinary ED: Denies hematuria Musculoskeletal Musculoskeletal: Reports back pain and other Details: Positive foot pain and foot/leg swelling Patient reports back pain is chronic in nature Integumentary Denies rash Neurologic Neurologic: Denies headache(s) Hematologic/Lymphatic Hematologic/Lymphatic: Reports easy bleeding and easy bruising EXAM Physical Exam Const Vital Signs: 06/03/25 02:30 06/03/25 02:30 06/03/25 02:33 Temperature 98.4 F 98.4 F Temperature Source Oral Oral Pulse Rate 79 78 Respiratory Rate 16 16 Respiratory Effort Normal Respiratory Pattern Normal Blood Pressure 133/77 H 133/77 H Blood Pressure Mean 95 95 Blood Pressure Source Blood Pressure Position Blood Pressure Location Pulse Ox 100 100 Oxygen Delivery Method Room Air Room Air Oxygen Flow Rate (L/min) 06/03/25 03:33 06/03/25 04:00 06/03/25 04:34 Temperature 98.4 F 98.9 F 98.5 F Temperature Source Oral Oral Oral Pulse Rate 74 83 70 Respiratory Rate 16 18 12 Respiratory Effort Respiratory Pattern Blood Pressure 115/68 112/58 L 107/56 L Blood Pressure Mean 83 76 73 Blood Pressure Source Monitor Blood Pressure Position Supine Blood Pressure Location Left Arm Pulse Ox 98 94 95 Oxygen Delivery Method Room Air Room Air Room Air Oxygen Flow Rate (L/min) 06/03/25 04:40 06/03/25 04:40 06/03/25 04:49 Temperature 97.7 F L Temperature Source Oral Pulse Rate 67 Respiratory Rate 12 Respiratory Effort Respiratory Pattern Blood Pressure 125/57 H Blood Pressure Mean 79 Blood Pressure Source Monitor Blood Pressure Position Supine Blood Pressure Location Right Arm Pulse Ox 88 95 100 Oxygen Delivery Method Room Air Nasal Cannula Nasal Cannula Oxygen Flow Rate (L/min) 3 3 06/03/25 04:49 06/03/25 05:00 06/03/25 05:49 Temperature 97.7 F L 97.7 F L 96 F L Temperature Source Oral Oral Axillary Pulse Rate 67 71 66 Respiratory Rate 12 17 12 Respiratory Effort Respiratory Pattern Blood Pressure 125/57 H 95/73 130/69 H Blood Pressure Mean 79 80 89 Blood Pressure Source Monitor Monitor Blood Pressure Position Supine Supine Blood Pressure Location Right Arm Right Arm Pulse Ox 100 100 98 Oxygen Delivery Method Nasal Cannula Nasal Cannula Nasal Cannula Oxygen Flow Rate (L/min) 3 3 3 06/03/25 06:00 06/03/25 06:49 06/03/25 06:49 Temperature 96 F L 97.6 F L 97.6 F L Temperature Source Axillary Oral Oral Pulse Rate 70 93 100 Respiratory Rate 16 16 16 Respiratory Effort Respiratory Pattern Blood Pressure 133/62 H 127/71 H 108/75 Blood Pressure Mean 85 89 86 Blood Pressure Source Monitor Monitor Blood Pressure Position Supine Supine Blood Pressure Location Right Arm Right Arm Pulse Ox 98 96 95 Oxygen Delivery Method Room Air Nasal Cannula Nasal Cannula Oxygen Flow Rate (L/min) 3 3 06/03/25 07:22 06/03/25 07:37 06/03/25 07:37 Temperature 97.6 F L 98.2 F 98.2 F Temperature Source Oral Oral Oral Pulse Rate 100 86 93 Respiratory Rate 16 18 16 Respiratory Effort Respiratory Pattern Blood Pressure 108/75 103/62 103/62 Blood Pressure Mean 86 75 75 Blood Pressure Source Monitor Monitor Monitor Blood Pressure Position Supine Supine Supine Blood Pressure Location Right Arm Right Arm Right Arm Pulse Ox 100 100 100 Oxygen Delivery Method Nasal Cannula Nasal Cannula Nasal Cannula Oxygen Flow Rate (L/min) 3 3 3 06/03/25 07:38 Temperature 98.2 F Temperature Source Pulse Rate 93 Respiratory Rate 16 Respiratory Effort Respiratory Pattern Blood Pressure 103/62 Blood Pressure Mean 75 Blood Pressure Source Blood Pressure Position Blood Pressure Location Pulse Ox 100 Oxygen Delivery Method Oxygen Flow Rate (L/min) Positive well nourished and well developed General Appearance ED: well developed and pallor HEENT HEENT Narrative: Normocephalic atraumatic No tongue or lip swelling no oral lesions no airway edema or compromise; no signs of infection noted in the posterior pharynx Eyes PERRL and EOMs intact bilaterally Eyes Narrative: Positive subconjunctival pallor noted General Eye ED: Yes pale conjunctiva; Negative for scleral icterus Neck supple Neck Narrative: Bilateral JVD is present Resp normal respiratory effort Resp Narrative: Breath sounds are diminished throughout with faint rhonchi in the bilateral bases but no nasal flaring retractions tachypnea or accessory muscle use Cardio regular rate and regular rhythm GI non-tender, non-distended and no masses GI Narrative: Soft nontender nondistended with hypoactive bowel sounds. No voluntary guardingor rigidity or pulsatile mass. No fluid wave noted Auscultation: hypoactive bowel sounds Palpation: soft Narrative: Rectal exam displays no external hemorrhoids or anal fissure. Rectal tone is normal. Stool is dark brown in color and Hemoccult negative Extremity Extremity Narrative: Patient has +1-2 pitting edema of the bilateral lower extremities that is equal and symmetric. However there is +3 in the dorsal aspect of the bilateral feet. Bilateral lower extremities are neurovascularly intact Neuro oriented x3, CN's II-XII intact bilaterally and no sensory deficits noted Sensorium / Orientation: alert Motor Exam: strength 5/5 throughout Psych mental status grossly normal Skin no rashes or lesions noted Skin Narrative: Skin is pale in color and cap refill is less than 3 seconds General Skin Exam: pallor; Negative for jaundice MDM MDM MDM Narrative Medical decision making narrative: Patient presented to the ER with stable vitals and reported difficulty sleeping secondary to increased pain from leg swelling. She denies any history of cirrhosis and does have a history of CHF and therefore the increased swelling could be due to CHF exacerbation or potential third spacing due to low protein or albumin levels. In order to assess for worsening CHF or protein or albumin levels as a cause of her increased swelling basic labs were obtained. The laboratory studies show that her hemoglobin is now 5.2. Chart review reveals that she was admitted to the hospital at the end of March/early April secondary to anemia with a hemoglobin of 6.3 at that time. She underwent a colonoscopy whichdisplayed diverticulosis and a few ulcers which were cauterized. She also has findings consistent with iron deficiency anemia and reportedly is on iron medication. The patient denies any blood in his urine or stool. At this time she is hemodynamically stable and rectal exam shows no sign of blood. However because of the anemia worsening over the month of April as it went from 10.1-9.4-7.2-5.2 she was given 2 units of blood. The case was discussed with key bed installer/Dr. Gonzalez. He states that with her anemia and Eliquis use that he recommend she come in for an EGD as that was not performed at the last admission as well as iron transfusion as this is a potential cause for her persistent symptoms. Case was also discussed with the hospitalist who agrees toaccept the patient for continued care History & Record Review Discussion w/independent historian: Patient Lab Data Attestation: I reviewed the patient's lab results. Labs: Laboratory Results - last 24 hr 06/03/25 06/03/25 02:34 03:20 WBC 7.6 RBC 2.28 L Hgb 5.2 L* Hct 18.0 L MCV 78.9 L MCH 22.8 L MCHC 28.9 L RDW Std Deviation 58.9 H RDW Coeff of David 20.2 H Plt Count 181 MPV 10.6 Immature Gran % (Auto) 0.800 Neut % (Auto) 69.4 Lymph % (Auto) 13.4 L Drew % (Auto) 14.0 H Eos % (Auto) 2.0 Baso % (Auto) 0.4 Absolute Neuts (auto) 5.3 Absolute Lymphs (auto) 1.02 Nucleated RBC % 3.9 RBC Morphology N CYTIC Anisocytosis RARE Stomatocytes 1+ Sodium 136 Potassium 3.7 Chloride 101 Carbon Dioxide 20.9 L Anion Gap 14 BUN 23 H Creatinine 1.07 Estim Creat Clear Calc 38.46 L Est GFR (MDRD) Non-Af 56 L BUN/Creatinine Ratio 21.6 H Glucose 116 H Calcium 8.1 Magnesium 2.1 Total Bilirubin 0.47 Direct Bilirubin 0.25 AST 37 H ALT 95 H Alkaline Phosphatase 113 H NT pro BNP II 6776 H Total Protein 5.7 L Albumin 3.7 Globulin 2.0 L Blood Type O POSITIVE Antibody Screen NEGATIVE Crossmatch See Detail Radiography Diagnostic Testing: Clinical Impression(s) from Imaging Studies Chest X-Ray 06/03/25 03:20 IMPRESSION: Small right effusion. Reading Location: [place] [address] Chest x-ray is interpreted by the emergency medicine physician reveals a small right pleural effusion without acute infiltrate or pneumothorax Management Discussion w/another healthcare provider: Hospitalist and Exercise Physiologist Discharge Plan Triage Chief Complaint: Edema ED Provider: Yasmani Haynes Dx/Rx/DC Orders Clinical Impression: Anemia, Congestive heart failure, Paroxysmal atrial fibrillation, Current use of termite helper anticoagulation Prescriptions: No Action gabapentin 800 mg tablet [...] 40 mg PO QDAY PRN (Reason: indigestion) dextromethorphan-guaifenesin [Mucinex DM] 60-1,200 mg tablet extended release 12 hr 1 tab PO Q12H PRN (Reason: cough/congest) doxepin 10 mg/mL concentrate 5 - 10 mg PO QHS cholecalciferol (vitamin D3) 125 mcg (5,000 unit) capsule 125 mcg PO DAILY rosuvastatin 10 mg tablet 10 mg PO QHS polysaccharide iron complex [Ferrex 150] 150 mg iron Capsule 150 mg PO DAILY 90 Days Qty: 90 0RF potassium chloride 20 mEq/15 mL Liquid 20 meq PO DAILY 30 Days Qty: 450 0RF pantoprazole [Protonix] 40 mg tablet,delayed release (DR/EC) 40 mg PO DAILY 90 Days Qty: 90 0RF misoprostol 100 mcg tablet PO oxycodone 5 mg tablet 5 mg PO Q6H PRN (Reason: pain) 3 Days Qty: 12 0RF capsaicin 0.1 % cream 1 applic topical TID Qty: 60 0RF Rx Instructions: do not wash area for at least 30 min after application aspirin 81 mg Tablet,Delayed Release (Dr/Ec) 81 mg PO BREAKFAST Qty: 30 2RF docusate sodium [Colace] 100 mg capsule 100 [...] 5 mg PO Q12H Qty: 180 3RF amlodipine 2.5 mg tablet 2.5 mg PO QDAY lisinopril 10 mg tablet 10 mg PO QDAY Primary Care Provider: Daron Benton Referrals: Daron Benton MD [Primary Care Provider] - Print Language: Bahraini Disposition Disposition: Acute Care Hospital [facility] What to do if you have Problems For any increased pain, shortness of breath, bleeding, nausea or vomiting, chestpain, or any unexpected problems, contact your Primary Care Provider. Call [facility] ([phone]) or report to the closest Emergency Room. Call 911 if necessary. 06/03/25 0747 <Electronically signed by Yasmani Haynes DO> Cosigner Signature (if applicable): CC: Dr. Daron Benton MD ~ Signed [facility] Work Phone: Evaluation + Plan note No data available for this section [facility] Evaluation note* Diagnosis Onset Date Resolution Status Effusion of left knee joint acute Left knee DJD acute Psoriatic arthritis acute Chronic pain chronic Peripheral vascular occlusive disease chronic Bilateral carotid artery stenosis chronic Essential (primary) hypertension chronic Nonobstructive atherosclerosis of coronary artery chronic Peripheral vascular occlusive disease chronic [facility] Work Phone: Evaluation note* Diagnosis Onset Date Resolution Status Peripheral vascular occlusive disease chronic Bilateral carotid artery stenosis chronic Essential (primary) hypertension chronic Nonobstructive atherosclerosis of coronary artery chronic Peripheral vascular occlusive disease chronic Bilateral carotid artery stenosis chronic Essential (primary) hypertension chronic Nonobstructive atherosclerosis of coronary artery chronic Peripheral vascular occlusive disease [facility] Work Phone: Evaluation note* Diagnosis Onset Date Resolution Status Cardiac murmur acute Bilateral carotid artery stenosis chronic Essential (primary) hypertension chronic Nonobstructive atherosclerosis of coronary artery chronic Peripheral vascular occlusive disease chronic [facility] Work Phone: Evaluation noteNo assessment information available [facility] Work Phone: Evaluation note* Diagnosis Onset Date Resolution Status Effusion of left knee joint acute Left knee DJD acute Psoriatic arthritis acute Cardiac murmur acute [place] (dyspnea on exertion) ac [place] Bilateral carotid artery stenosis chronic Essential (primary) hypertension chronic Nonobstructive atherosclerosis of coronary artery chronic Peripheral vascular occlusive disease chronic [facility] Work Phone: Evaluation note* Diagnosis Onset Date Resolution Status Effusion of left knee joint acute Left knee DJD acute Psoriatic arthritis acute Cardiac murmur acute [place] (dyspnea on exertion) ac [place] Bilateral carotid artery stenosis chronic Essential (primary) hypertension chronic Nonobstructive atherosclerosis of coronary artery chronic Peripheral vascular occlusive disease chronic Left knee DJD acute Psoriatic arthritis acute [facility] Work Phone: Evaluation note* Diagnosis Onset Date Resolution Status Effusion of left knee joint acute Left knee DJD acute Psoriatic arthritis acute Cardiac murmur acute [place] (dyspnea on exertion) ac [place] Bilateral carotid artery stenosis chronic Essential (primary) hypertension chronic Nonobstructive atherosclerosis of coronary artery chronic Peripheral vascular occlusive disease chronic Left knee DJD acute Psoriatic arthritis acute 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 Effusion of left knee joint acute Left knee DJD acute Psoriatic arthritis acute [facility] Work Phone: Evaluation note* Diagnosis Onset Date Resolution Status Left knee DJD acute Psoriatic arthritis acute 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 Effusion of left knee joint acute Left knee DJD acute Psoriatic arthritis acute [facility] Work Phone: Evaluation note* Diagnosis Onset Date Resolution Status 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 Effusion of left knee joint acute Left knee DJD acute Psoriatic arthritis acute Intercostal neuralgia acute Thoracic back pain acute [facility] Work Phone: Evaluation note* Diagnosis Onset Date Resolution Status Effusion of left knee joint acute Left knee DJD acute Psoriatic arthritis acute Intercostal neuralgia acute Thoracic back pain acute Psoriatic arthritis acute Thoracic back pain acute Multiple sclerosis chronic [facility] Work Phone: Evaluation note* Diagnosis Multiple sclerosis (HCC) Multiple sclerosis documented in this encounter [facility]xt[facility]backEvaluation note* Diagnosis Multiple sclerosis (HCC) Multiple sclerosis documented in this encounter [facility] note* Diagnosis Onset Date Resolution Status Psoriatic arthritis acute Thoracic back pain acute Multiple sclerosis chronic Bilateral carotid artery stenosis chronic Essential (primary) hypertension chronic Nonobstructive atherosclerosis of coronary artery chronic Peripheral vascular occlusive disease chronic [facility] Work Phone: Evaluation note* Diagnosis Onset Date Resolution Status Bilateral carotid artery stenosis chronic Essential (primary) hypertension chronic Nonobstructive atherosclerosis of coronary artery chronic Peripheral vascular occlusive disease chronic [facility] Work Phone: Evaluation note* Diagnosis Multiple sclerosis (HCC)- Primary Multiple sclerosis Cerebrovascular disease, unspecified Primary hypertension Unspecified essential hypertension documented in this encounter [facility] note* Diagnosis Onset Date Resolution Status Knee joint effusion acute [facility] Work Phone: Evaluation note* Diagnosis Onset Date Resolution Status Knee joint effusion acute Bilateral carotid artery stenosis chronic Essential (primary) hypertension chronic Nonobstructive atherosclerosis of coronary artery chronic Peripheral vascular occlusive disease chronic Acute hyponatremia acute Acute kidney injury acute Dehydration acute Influenza A acute [facility] Work Phone: Evaluation note* Diagnosis Onset Date Resolution Status Knee joint effusion acute Bilateral carotid artery stenosis chronic Essential (primary) hypertension chronic Nonobstructive atherosclerosis of coronary artery chronic Peripheral vascular occlusive disease chronic Acute hyponatremia acute Acute kidney injury acute Dehydration acute Influenza A acute Atrial fibrillation acute Chest pressure acute Elevated troponin acute Influenza A acute New onset atrial fibrillation acute [facility] Work Phone: Evaluation note* Diagnosis Onset Date Resolution Status Knee joint effusion acute Bilateral carotid artery stenosis chronic Essential (primary) hypertension chronic Nonobstructive atherosclerosis of coronary artery chronic Peripheral vascular occlusive disease chronic Acute kidney injury acute Acute hyponatremia resolved Dehydration resolved Atrial fibrillation acute Chest pressure acute Elevated troponin acute New onset atrial fibrillation acute [facility] Work Phone: Evaluation note* Diagnosis Onset Date Resolution Status Knee joint effusion acute Bilateral carotid artery stenosis chronic Essential (primary) hypertension chronic Nonobstructive atherosclerosis of coronary artery chronic Peripheral vascular occlusive disease chronic Acute kidney injury acute Acute hyponatremia resolved Dehydration resolved Atrial fibrillation acute Chest pressure acute Elevated troponin acute New onset atrial fibrillation acute Weakness acute [facility] Work Phone: Evaluation note* Diagnosis Onset [...] Dizziness acute Weakness acute Multiple sclerosis chronic [facility] Work Phone: Evaluation note* Diagnosis Multiple [...] (primary) hypertension chronic Peripheral vascular occlusive disease [facility] Work Phone: Evaluation note* Diagnosis Multiple sclerosis (HCC) [facility] Diagnosis Onset Date Resolution Status Knee [...] (primary) hypertension chronic Peripheral vascular occlusive disease [facility] Work Phone: evaluation note* Diagnosis Onset Date [...] hypertension chronic Peripheral vascular occlusive disease chronic [facility] Work Phone: Evaluation note* Diagnosis Onset [...] symptoms of anemia resolved Symptomatic anemia resolved [facility] Work Phone: Evaluation note* Diagnosis Cough [facility]* Diagnosis Other specified symptoms and signs involving the circulatory and respiratory systems- Primary Cerebrovascular disease, unspecified [facility] Diagnosis Multiple sclerosis (HCC) Multiple [facility]* Diagnosis Multiple sclerosis (HCC)- Primary Multiple sclerosis Mild cognitive impairment Mild cognitive impairment, so stated Fatigue, unspecified type Deficiency of multiple nutrient elements Other nutritional deficiency [facility] Multiple [facility] (HCC)- Primary Multiple sclerosis Dysphasia Other speech disturbance [facility] Author Sommer Resendiz [facility] November 15, 2023 3:44pm Note Date/Time November 15, 2023 3:14pm [facility] Medical Records Department [address] [place] [address] H&P Exam - Hospitalist 11/15/23 1512 MR#: [id number] Acct: [id number] Name: ANGÉLICA YO Rep #:[id number] : 1955 68 From: Sommer Resendiz MD PCP: Dr. Daron Benton MD Status:ADM IN Location: [facility] [id number] HPI - General General Date of Admission: 11/15/23 Date of Service: 11/15/23 Chief Complaint: Poor intake, malaise, fatigue, weakness, N/V/D HPI Narrative The patient is a 68 y/o F w/ PMHx: Hx Cerebral aneurysm, Chronic pain syndrome, HTN, HLD, Hx TIA, Multiple Sclerosis, Nonobstructive CAD, Psoriatic arthritis, PAD, NS SVT, GERD, Hypothyroidism, Carotid disease, Tobacco use who presents to the [facility] ED on 11/15/23 with history of [...] x 1 and 1 L normal saline. [facility] Medical History Angina pectoris [...] Stomach morphine AdvReac Nausea Verified 11/15/23 11:27 Ycpdmjg-EIO-RiP Reductase AdvReac Nausea Verified 11/15/23 11:27 Inhibitor [Ggbafrr-Zem-Puo Reductase Inhibitor] Family History Mother Cancer CAD [...] 70.4 H, Lymph % (Auto) 14.3 L, Drew % (Auto) 14.5 H, Eos % (Auto) [...] disease, Tobacco use who presents to the [facility] ED on 11/15/23 with history of [...] 16 minutes. Charges/Coding Visit Charges Inpatient E&M: 86862 Init Hosp L3 Procedures Hospitalists Procedures: 60789 Advncd Care Plan 30 Min 11/15/23 1544 <Electronically signed by Sommer Resendiz MD> Cosigner Signature (if applicable): CC: Dr. Sommer Resendiz MD; Dr. Daron Benton MD~ Signed [facility] Work Phone: History and physical note Author Roman Mckeon [facility] December 02, 2023 11:53am Note Date/Time December 02, 2023 1 1:43am [facility] Medical Records Department [address] [place] [id number] H&P Exam - Hospitalist 12/02/23 1140 MR#: [id number] Acct: [id number] Name: ANGÉLICA YO Rep #:[id number] : 1955 68 From: Roman Mckeon MD PCP: Dr. Daron Benton MD Status:ADM IN Location: [place] [address] HPI - General General Date of Admission: [...] to a monitored bed for further management [facility] Medical History Angina pectoris [...] Stomach morphine AdvReac Nausea Verified 11/26/23 12:47 Stnurfp-COI-WiM Reductase AdvReac Nausea Verified 11/26/23 12:47 Inhibitor [Hgizkbp-Wdq-Ydz Reductase Inhibitor] Family History Mother Cancer CAD [...] % (Auto) 56.3, Lymph % (Auto) 28.5, Drew % (Auto) 12.7 H, Eos % (Auto) [...] Clarity Clear, Urine pH 6.5, Ur Specific [place] 1.015, Urine Protein 15 H, Urine Glucose [...] 18 minutes. Charges/Coding Visit Charges Inpatient E&M: 43892 Init Hosp L3 Procedures Hospitalists Procedures: 51843 Advncd Care Plan 30 Min 12/02/23 1153 <Electronically signed by Roman Mckeon MD> Cosigner Signature (if applicable): CC: Dr. Roman Mckeon MD; Dr. Daron Benton MD~ Signed [facility] Work Phone[facility] Work Phone: Hospital Discharge instructions Additional Instructions Please follow-up with your primary care doctor. If your pain gets worse you do not feel you can effectively take care of yourself at home please return to the emergency room. [facility] Work Phone: Hospital Discharge instructions Additional Instructions [...] any further concerns or worsening of symptoms [facility] Work Phone: Hospital Discharge instructions Additional Instructions Continue following up outpatient. You need to follow-up with your PCP, make them aware that you no longer taking her Eliquis. Return for any worsening symptoms. Chest x-ray was clear today.[facility] Work Phone: Hospital Discharge instructions Additional Instructions Labs and CAT scan today showed no significant changes in the past. No signs of acute stroke. Call and follow-up with your primary care physician if this is not improving you and he can discuss further imaging of your neck to see if you may have a pinched nerve.[facility] Work Phone: Hospital Discharge instructions Additional Instructions In 2019, Dr. 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 Make an appointment to see him as soon as possible to have this reevaluated.[facility] Work Phone: Hospital Discharge instructions Additional Instructions [...] you are at risk of getting internal bleeding.[facility] Work Phone: Hospital Discharge instructions Additional Instructions [...] any further concerns or worsening of symptoms. [facility] Work Phone: Hospital Discharge instructionsAdditional Instructions Please continue all of your home medications as directed by your doctor use the capsaicin and oxycodone to help control pain from the shingles and return to the ER should you have any [facility] Work Phone: Progress note Author Kevin Gonzalez [facility] Note Date/Time April 22, 2025 5:49p m [facility] Medical Records Department [address] [place] [address] Progress Note 04/22/25 1747 MR#: [id number] Acct: [id number] Name: ANGÉLICA YO Rep #:[id number] : 1955 69 From: Kevin Gonzalez DO PCP: Dr. Daron Benton MD Status:ADM IN Location: [place] [address] Progress Note Patient is doing well today. [...] for further workup Visit Charges Inpatient E&M: 25428 [facility] Hosp L3 04/22/25 1411 <Electronically signed by Kevin Gonzalez DO> Kevin Gonzalez DO Cosigner Signature (if applicable): CC: ~ Signed [facility] Work Phone: Progress note Author Kevin Gonzalez [facility] Note Date/Time June 09, 2025 5:37 pm [facility] Medical Records Department [address] [place] [address] Progress Note 06/09/251735 MR#: [id number] Acct: [id number] Name: ANGÉLICA YO Rep #:[id number] 7 : 1955 69 From: Kevin Gonzalez DO PCP: Dr. Daron Benton MD Status:ADM IN Location: [place] [address] Progress Note Patient has not had any signs or symptoms of GI bleeding. She is scheduled to go home today. She has been off of anticoagulation and antiplatelet therapy. She has been on PPI therapy and sulcal fate therapy. Physical Exam Const alert, oriented x3, no apparent distress and healthy appearing General Appearance: cooperative GI normal to inspection, nondistended, normoactive bowel sounds, soft to palpation,non-tender and non-distended Percussion: normal to percussion Rectal Exam: deferred Assessment & Plan Assessment/Plan (1) Symptomatic anemia: PLAN: Plan Patient is a 69-year-old lady presented with fatigue found to be anemic with hemoglobin of 5.2. She is on anticoagulation with Eliquis for atrial fibrillation. Hemoglobin was up after blood transfusion. She was explained alternatives, risk and benefits include not withstanding bleeding, infection, sepsis, perforation, need for more surgery . She will have an ASA of 3. 06/04/2025-patient for EGD tomorrow. Keep n.p.o. past midnight. 06/05/2025-patient got transfused 2 units of packed red blood cells and hemoglobin is up to 8.5 from 6.9. She was explained alternatives, risk and benefits occluding withstanding bleeding, fracture, steps, perforation, need fordischarge and . She have an ASA of 3. 06/09/2025-patient will need outpatient capsule endoscopy. Visit Charges Inpatient E&M: 53859 Subs Hosp L3 06/09/251736 <Electronically signed by Kevin Gonzalez DO> Kevin Gonzalez DO Cosigner Signature (if applicable): CC: ~ Signed [facility] Work Phone: Reason for referral (narrative)* Consultation (Routine) - Pending Review Specialty Diagnoses / Procedures Referred By Contac t Referred To Contact Ophthalmology Diagnoses Vision disturbance Procedures OK OFFICE/OUTPATIENT NEW HIGH MDM 60 MINUTES Lizz Jones APRN - CNP [address] [facility] [address] [place] [phone] Cecilio Gibbs MD [facility] [place] [address] Referral ID Status Reason Start Date Expiration Date Visits Requested Visits Authorized [id number] Pending Review Specialty Services Required 12/14/2023 12/13/2024 1 1 * Therapy (Routine) - Pending Review Specialty Diagnoses / Procedures Referred By Contac t Referred To Contact Physical Therapy Diagnoses Dizziness Imbalance Procedures OK OFFICE/OUTPATIENT NEW HIGH [facility] 60 MINUTES Lizz Jones APRN - CNP [address] [facility] [address] [place] [phone] Referral ID Status Reason Start Date Expiration Date Visits Requested Visits Authorized [id number] Pending Review Eval and Treat 12/14/2023 06/11/2024 99 99 Scheduling Instructions Twice weekly x 4 weeks for dizziness and imbalance [facility]No reason for referral information [facility]WDay[facility] Work Phone: Summary Purpose Family [...] No February 17, 2022 9:49pm Power of Tractor Trailer Moving Van Driver No February 17 9:49pm Advance Directive Response Recorded Date/ Time Advance Directives No January 18 8:11am Living Will No February 18, 2022 4:14am Power of Tractor Trailer Moving [employer] No February 18 4:14am Advance Directive Response Recorded Date/ Time Advance Directives No January 18 8:11am Living Will No February 20, 2022 4:54pm Power of Tractor Trailer Moving Van Driver No February 20 4:54pm Advance Directive Response Recorded Date/ Time Advance Directives No January 18 7:11am Living Will No February 20, 2022 3:54pm Power of Tractor Trailer Moving [employer] No February 20 3:54pm Advance Directive Response Recorded Date/ Time Advance Directives No January 18 7:11am Living Will No November 24 11:31pm Power of Tractor Trailer Moving [employer] Driver No November 24 11:31pm Advance Directive Response Recorded Date/ Time Advance Directives No January 18 8:11am Living Will No November 25 12:31am Power of Tractor Trailer Moving [employer] No November 25 12:31am Advance Directive Response Recorded Date/ Time Advance Directives No January 18 8:11am Living Will No March 16, 2023 12:46pm Power of Tractor Trailer Moving [employer] Driver No March 16 12:46pm Advance Directive Response Recorded Date/ Time Advance Directives No January 18 8:11am Living Will No March 31, 2023 1 2:40pm Power of Tractor Trailer Moving [employer] No March 31, 2023 12:40pm Advance Directive Response Recorded Date/ Time Advance Directives No January 18 8:11am Living Will No April 08, 2023 9 :22am Power of Tractor Tra[employer] Moving [employer] Driver No April 08, 2023 9:22am Advance Directive Response Recorded Date/ Time Advance Directives No January 18 7:11am Living Will No October 05 023 12:50am Power of [employer]ractor [employer] Moving [employer] No October 05, 2023 12:50am Advance Directive Response Recorded Date/ Time Advance Directives No January 18 7:11am Living Will No November 15 023 11:28am Power of Tractor Tra[employer] Moving [employer] No November 15, 2023 11:28am Advance Directive Response Recorded Date/ Time Advance Directives No January 18 7:11am Living Will No November 15, 2 023 4:24pm Power of Tractor Trailer Moving [employer] Driver No November 15, 2023 4:24pm Advance Directive Response Recorded Date/ Time Advance Directives No January 18 7:11am Living Will No November 18 023 11:47am Power of Tractor Trailer Moving [employer] Driver No November 18, 2023 11:47am Advance Directive Response Recorded Date/ Time Advance Directives No January 18 7:11am Living Will No November 18 023 3:44pm Power of Tractor Trailer Moving [employer] Driver No November 18, 2023 3:44pm Advance Directive Response Recorded Date/ Time Advance Directives No January 18 7:11am Living Will No November 26 1:53pm Power of Tractor Trailer Moving [employer] Driver No November 26 024 1:53pm Advance Directive Response Recorded Date/ Time Advance Directives No January 18 7:11am Living Will No November 27 9:06am Power of Tractor Tra[employer] Moving [employer] Driver No November 27 9:06am Advance Directive Response Recorded Date/ Time Advance Directives No January 18 7:11am Living Will No December 02 6:38am Power of Tractor Trailer Moving [employer] Driver No December 02, 2023 6:38am Advance Directive Response Recorded Date/ Time Advance Directives No January 18 7:11am Living Will No December 02 12:37pm Power of Tractor Trailer Moving Van Driver No December 02, 2023 12:37pm Advance Directive Response Recorded Date/ Time Advance Directives No January 18 7:11am Living Will No January 18, 2024 10:25am Power of Tractor Trailer Moving [employer] Driver No January 17 10:25am Advance Directive Response Recorded Date/ Time Advance Directives No January 18 8:11am Living Will No February 19, 2024 10:57am Power of Tractor Tra[employer] Moving [employer] No February 18 10:57am Advance Directive Response Recorded Date/ Time Advance Directives No January 18 8:11am Living Will No February 19, 2024 5:33pm Power of Tractor Trailer Moving [employer] Driver No February 18 5:33pm Advance Directive Response Recorded Date/ Time Living Will No December 17 11:30am Do you have a Healthcare Power of Tractor Trailer Moving Van Driver? No December 17, 2024 11:30am Do you have a Healthcare Power of Tractor Trailer Moving [employer] Driver? No April 02, 2025 7:26pm Living Will No December 09 3:59pm Do you have a Healthcare Power of Tractor Trailer Moving [employer] Driver? No December 09, 2024 3:59pm Living Will No January 11 2 025 2:51am Do you have a Healthcare Power of Tractor Trailer Moving [employer] Driver? No January 11, 2025 2:51am Advance Directives No January 18 8:11am Advance Directive Response Recorded Date/ Time Do you have a Healthcare Power of Tractor Trailer Moving [employer] Driver? No April 02, 2025 7:26pm Do you have a Healthcare Power of Tractor Trailer Moving [employer] Driver? No April 11, 2025 1:19pm Living Will No January 11 2 025 2:51am Do you have a Healthcare Power of Tractor Trailer Moving [employer] Driver? No January 11, 2025 2:51am Do you have a Healthcare Power of Tractor Trailer Moving [employer] Driver? No April 17, 2025 10:20pm Advance Directives No January 18 8:11am Advance Directive Response Recorded Date/ Time Do you have a Healthcare Power of Tractor Tra[employer] Moving [employer] Driver? No April 02, 2025 7:26pm Do you have a Healthcare Power of Tractor Trailer Moving [employer] Driver? No April 11, 2025 1:19pm Do you have a Healthcare Power of Tractor Trailer Moving [employer] Driver? No April 18, 2025 6:43pm Living Will No January 11 025 2:51am Do you have a Healthcare Power of Tractor Trailer Moving [employer] Driver? No January 11, 2025 2:51am Do you have a Healthcare Power of Tractor Trailer Moving [employer] Driver? No April 17, 2025 10:20pm Advance Directives No January 18 8:11am Advance Directive Response Recorded Date/ Time Do you have a Healthcare Power of Tractor Trailer Moving [employer] Driver? No April 02, 2025 7:26pm Do you have a Healthcare Power of Tractor Trailer Moving [employer] Driver? No April 11, 2025 1:19pm Do you have a Healthcare Power of Tractor Trailer Moving Van Driver? No April 18, 2025 9:53pm Living Will No January 11 025 2:51am Do you have a Healthcare Power of Tractor Trailer Moving Van Driver? No January 11, 2025 2:51am Do you have a Healthcare Power of Tractor Trailer Moving [employer] Driver? No April 17, 2025 10:20pm Advance Directives No January 18 8:11am Advance Directive Response Recorded Date/ Time Do you have a Healthcare Power of Tractor Trailer Moving [employer] Driver? No April 02, 2025 7:26pm Do you have a Healthcare Power of Tractor Trailer Moving Van Driver? No April 11, 2025 1:19pm Do you have a Healthcare Power of Tractor Trailer Moving [employer] Driver? No April 18, 2025 9:53pm Do you have a Healthcare Power of Tractor Trailer Moving [employer] Driver? No April 17, 2025 10:20pm Advance Directives No January 18 8:11am Advance Directive Response Recorded Date/ Time Do you have a Healthcare Power of Tractor Tra[employer] Moving [employer] Driver? No April 02, 2025 7:26pm Do you have a Healthcare Power of Tractor Trailer Moving [employer] Driver? No April 11, 2025 1:19pm Do you have a Healthcare Power of Tractor Trailer Moving [employer] Driver? No April 18, 2025 9:53pm Do you have a Healthcare Power of Tractor Trailer Moving [employer] Driver? No May 19, 2025 10:27pm Do you have a Healthcare Power of Tractor Trailer Moving [employer] Driver? No April 17, 2025 10:20pm Advance Directives No January 18 8:11am Advance Directive Response Recorded Date/ Time Do you have a Healthcare Power of Tractor Trailer Moving [employer] Driver? No April 02, 2025 7:26pm Do you have a Healthcare Power of Tractor Tra[employer] Moving [employer] Driver? No April 11, 2025 1:19pm Do you have a Healthcare Power of Tractor Trailer Moving [employer] Driver? No April 18, 2025 9:53pm Do you have a Healthcare Power of Tractor Trailer Moving [employer] Driver? No May 19, 2025 10:27pm Do you have a Healthcare Power of Tractor Trailer Moving [employer] Driver? No April 17, 2025 10:20pm Do you have a Healthcare Power of Tractor Trailer Moving [employer] Driver? No June 03, 2025 2:30am Advance Directives No January 18 8:11am Advance Directive Response Recorded Date/ Time Do you have a Healthcare Power of Tractor Trailer Moving [employer] Driver? No April 02, 2025 7:26pm Do you have a Healthcare Power of Tractor Tra[employer] Moving [employer] Driver? No April 11, 2025 1:19pm Do you have a Healthcare Power of Tractor Tra[employer] Moving [employer] Driver? No April 18, 2025 9:53pm Do you have a Healthcare Power of Tractor Trailer Moving Van Driver? No May 19, 2025 10:27pm Do you have a Healthcare Power of Tractor Trailer Moving [employer] Driver? No April 17, 2025 10:20pm Do you have a Healthcare Power of Tractor Trailer Moving [employer] Driver? No June 03, 2025 8:49am Advance Directives No January 18 8:11am Chief [...] Weakness Weakness Weakness Weakness Weakness Weakness S/P [facility] 11/21/23 DIZZINESS,IMBALANCE/RX HERE fall Reason for [...] Weakness Weakness Weakness Weakness Weakness Weakness S/P [facility] 11/21/23 DIZZINESS,IMBALANCE/RX HERE fall FALL, HEAD [...] Weakness Weakness Weakness Weakness Weakness Weakness S/P [facility] 11/21/23 DIZZINESS,IMBALANCE/RX HERE fall FALL, HEAD [...] Weakness Weakness Weakness Weakness Weakness Weakness S/P [facility] 11/21/23 DIZZINESS,IMBALANCE/RX HERE fall FALL, HEAD [...] Weakness Weakness Weakness Weakness Weakness Weakness S/P 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 12/11December 19, 2024 1 :16pm 3 [...] vascular occlusive disease Ja nuary 2024 1:16pm Miiur-4-bogdkvopfgu deficiency carrier F ebruary 2024 1:52pm Hypoxemia December 24, 2024 1 :52pm Emphysema of lung December 24, 2024 1 :52pm Nicotine dependence, cigarettes, uncompl icated December 24, 2024 1:52pm Smoking greater than 30 pack years 2024 1:52pm Atherosclerotic heart diseas e of [place] coronary artery without angina pectoris January 10, [...] 12:30 pm Reason for Visit Admit Date Twtls-7-bansmzzluch deficiency carrier F ebruary 2024 1:52pm Hypoxemia December 24, 2024 1 :52pm Emphysema of lung December 24, 2024 1 :52pm Nicotine dependence, cigarettes, uncompl icated December 24, 2024 1:52pm Smoking greater than 30 pack years Febru [email or web address] 1:52pm Atherosclerotic heart diseas e of [place] coronary artery without angina pectoris January 10, [...] Admit Date Atherosclerotic heart diseas e of [place] coronary artery without angina pectoris January 10, [...] CHANGE, UNKNOWN CAUSE May 20, 2025 12:09pm Chief Complaint Admit Date 3 M FU [...] CHANGE, UNKNOWN CAUSE May 20, 2025 12:09pm ANEMIA June 03, 2025 7:37 am Chief Complaint Admit Date 3 M FU [...] CHANGE, UNKNOWN CAUSE May 20, 2025 12:09pm ANEMIA June 03, 2025 7:37 am Anemia June 03, 2025 7:39 am Anemia June 03, 2025 4:09 pm Anemia June 04, 2025 8:34 am Anemia June 04, 2025 5:46 pm Anemia June 05, 2025 7:49 am Anemia June 05, 2025 3:12 pm Anemia June 06, 2025 12:0 8pm Anemia June 07, 2025 9:07 am Anemia June 08, 2025 7:44 pm Anemia June 09, 2025 3:32 pm Anemia June 09, 2025 5:36 pm Reason for Visit Admit Date Mitral [...] and symptoms of anemia April 18, 2 9:20pm 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 cardiac monito r April 18, 2025 9:20pm Symptomatic anemia April 18, 2025 9:20p m Anemia May 06, 2025 2:10 pm Constipation May 06, 2025 2:10 pm Anemia June 03, 2025 7:37 am Congestive heart failure June 03, 2025 7:37am DDD (degenerative disc disease), lumbosa cral June 03, 2025 7:37am Symptomatic anemia June 03, 2025 7:37 am Chief Complaint Admit Date MITRAL STENOSIS March 19, 2025 8:00am MS [...] CHANGE, UNKNOWN CAUSE May 20, 2025 12:09pm ANEMIA June 03, 2025 7:37 am Anemia June 03, 2025 7:39 am Anemia June 03, 2025 4:09 pm Anemia June 04, 2025 8:34 am Anemia June 04, 2025 5:46 pm Anemia June 05, 2025 7:49 am Anemia June 05, 2025 3:12 pm Anemia June 06, 2025 12:0 8pm Anemia June 07, 2025 9:07 am Anemia June 08, 2025 7:44 pm Anemia June 09, 2025 3:32 pm Anemia June 09, 2025 5:36 pm LAB WORK June 10, 2025 5:00 am Admission Exam H&P June 16, 2025 1:50 pm LAB WORK June 17, 2025 5:00 am Reason for Visit Admit Date Acute on chronic anemia April 18, 2025 9 :20pm Microcytic anemia April 18, 2025 9:20p m Orthostatic hypotension April 18, 2025 9 :20pm Signs and symptoms of anemia April 18, 9:20pm 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 cardiac monito r April 18, 2025 9:20pm Symptomatic anemia April 18, 2025 9:20p m Anemia May 06, 2025 2:10 pm Constipation May 06, 2025 2:10 pm Anemia June 03, 2025 7:37 am DDD (degenerative disc disease), lumbosa cral June 03, 2025 7:37am Congestive heart failure June 03, 2025 7:37am Symptomatic anemia June 03, 2025 7:37 am Chief Complaint Admit Date MITRAL STENOSIS March 19, 2025 8:00am MS [...] CHANGE, UNKNOWN CAUSE May 20, 2025 12:09pm ANEMIA June 03, 2025 7:37 am Anemia June 03, 2025 7:39 am Anemia June 03, 2025 4:09 pm Anemia June 04, 2025 8:34 am Anemia June 04, 2025 5:46 pm Anemia June 05, 2025 7:49 am Anemia June 05, 2025 3:12 pm Anemia June 06, 2025 12:0 8pm Anemia June 07, 2025 9:07 am Anemia June 08, 2025 7:44 pm Anemia June 09, 2025 3:32 pm Anemia June 09, 2025 5:36 pm LAB WORK June 10, 2025 5:00 am New Concern June 12, 2025 1:04 pm Admission Exam H&P June 16, 2025 1:50 pm LAB WORK June 17, 2025 5:00 am Chief Complaint Admit Date MITRAL STENOSIS March 19, 2025 8:00am MS [...] CHANGE, UNKNOWN CAUSE May 20, 2025 12:09pm ANEMIA June 03, 2025 7:37 am Anemia June 03, 2025 7:39 am Anemia June 03, 2025 4:09 pm Anemia June 04, 2025 8:34 am Anemia June 04, 2025 5:46 pm Anemia June 05, 2025 7:49 am Anemia June 05, 2025 3:12 pm Anemia June 06, 2025 12:0 8pm Anemia June 07, 2025 9:07 am Anemia June 08, 2025 7:44 pm Anemia June 09, 2025 3:32 pm Anemia June 09, 2025 5:36 pm LAB WORK June 10, 2025 5:00 am Admission exam H&P June 10, 2025 4:46 pm New Concern June 12, 2025 1:04 pm Admission Exam H&P June 16, 2025 1:50 pm LAB WORK June 17, 2025 5:00 am Reason for Referral Specialty Diagnoses / Procedures Referred By Contac t Referred To Contact Cardiology Diagnoses Other specified symptoms and signs involving the circulatory and respiratory systems Cerebrovascular disease, unspecified Procedures Vascular US carotid artery duplex bilateral Kristopher Main MD [address] [place] [address] [place] [address] Referral ID Status Reason Start Date Expiration Date Visits Requested Visits Authorized [id number] Pending Review Perform Procedure 2 03/02/2023 1 1 Additional Source Comments INFORMATION SOURCE (unrecogn ized section and content) DATE CREATED AUTHOR 05/13/2018 [facility] DATE CREATED AUTHOR AUTHOR'S ORGANIZ ATION 05/13/2018 [facility] DATE CREATED AUTHOR AUTHOR'S ORGANIZ ATION 12/13/2021 [facility] DATE CREATED AUTHOR AUTHOR'S ORGANIZ ATION 01/16/2024 [facility] ([place]) DATE CREATED AUTHOR AUTHOR'S ORGANIZ ATION 05/08/2025 [facility] DATE CREATED AUTHOR AUTHOR'S ORGANIZ ATION [facility]/03/2025 [facility] Goals (unrecognized section and content) Goals [...] and content) Care Team Related Persons Name: BHVAIK HONG Name: LOLA HONG Care Teams (unrecognized [...] Primary Care Provider, Attending P rovider Active General Manager Farm Relationship Specialty Start Date End Date Daron Benton [address] [facility] [address] [place] [phone] PCP - General 06/23/20 General Manager Farm Relationship Specialty Start Date End Date Daron Benton [address] [facility] [address] [place] [phone] PCP - General 06/23/20 General Manager Farm Relationship Specialty Start Date End Date Daron Benton [address] [place] [phone] PCP - General 06/23/20 Team Status: Inactive Member Role Status Dates Dr. Daron Benton MD Primary Care Provider, Referring P rovider Active Dr. Orlando Jacob MD Attending Provider Active Team Status: Inactive Member Role Status Dates Dr. Daron Benton MD Primary Care Provider, Referring P gerard Active Katia Chi Attending Provider Active Team Status: Inactive Member Role Status Dates Dr. Daron Benton MD Primary Care Provider Active Dr. Yasmani Haynes DO Emergency Provider Active General Manager Farm Relationship Specialty Start Date End Date Daron Benton [address] [place] [phone] PCP - General 06/23/20 Team Status: Inactive [...] MD Primary Care Provider Active Dr. Gabriella iSmpson DO Emergency Provider Active Dr. Roman Mckeon MD Admit Provider, Other Provider A ctllvuia Friend MD Other Provider Active Dr. Ruby [...] Active Keyona Davidson MD Other Provider Active General Manager Farm Relationship Specialty Start Date End Date Daron Benton [address] [facility] [address] [place] [phone] PCP - General 06/23/20 Team Status: Active Member Role Status Dates Dr. Daron Benton MD Primary Care Provider Active Dr. Gabriella Simpson , DO Emergency Provider Active Dr. Roman Mckeon MD Admit Provider, Other Provider A ctive Kt Friend MD Other Provider Active Dr. Ruby Wynn MD Other Provider Active Angie Shileds MD Other Provider Active Dr. Jo Ann [...] Daron Benton MD Primary Care Provider Active SHANE SABA Attending Provider, Referring Provide r Active [...] Kevin Gonzalez DO Attending Provider Active Dr. Eva Mortensen DO Referring Provider Active Team Status: Active Member Role Status Dates Dr. Daron Benton MD Primary Care Provider Active Dr. Bhavik Smiley MD Attending Provider Active Dr. Roman Mckeon MD Referring Provider Active Team Status: Active Member Role Status Dates Dr. Daron Benton MD Primary Care Provider Active Dr. Bhavik Smiley MD Attending Provider, Referring Provider Active General Manager Farm Relationship Specialty Start Date End Date Daron Benton MD [address] [place] [address] PCP - General Family Medicine 03/12/19 Tye Barnett MD [address] [place] [address] Vascular Surgery 12/22/17 General Manager Farm Relationship Specialty Start Date End Date Daron Benton [address] [facility] [address] [place] [address] PCP - General 06/23/20 General Manager Farm Relationship Specialty Start Date End Date Daron Benton [address] [facility] [address] [place] [address] PCP - General 06/23/20 General Manager Farm Relationship Specialty Start Date End Date Daron Benton [address] [facility] [address] [place] [address] PCP - General 06/23/20 General Manager Farm Relationship Specialty Start Date End Date Daron Benton [address] [facility] [address] [place] [address] PCP - General 06/23/20 Team Status: Active [...] Status: Inactive Member Role Status Dates Dr. Daorn Benton MD Primary Care Provider Active Start: [...] t: January 12, 2025 Dr. Dex Worrell , Other Provider Active S tart: January 12, [...] April 02, 2025 End: April 02, 2025 General Manager Farm Relationship Specialty Start Date End Date Daron Benton [address] [place] [address] PCP - General 06/23/20 Team Status: Inactive [...] 11, 2025 End: April 11, 2025 Dr. Ramírze Onofre MD Attending Provider Active S tart: [...] Active Sta rt: April 18, 2025 Dr. Sacihn Murillo MD Admit Provider Active Start: April [...] Provider Active Start: April 20, 2025 Dr. eJffy Willoughby MD Emergency Provider Active Sta rt: [...] May 06, 2025 End: May 06, 2025 General Manager Farm Relationship Specialty Start Date End Date Daron Benton [address] [place] [address] PCP - General 06/23/20 Team Status: Active [...] Status: Inactive Member Role/Relationship Status Dates Dr. aDron Benton [...] May 20, 2025 End: May 20, 2025 TANYA HarringtonC Attending Provider Active Start: May 20, 2025 End: May 20, 2025 Lizz Jones NP-Cristopher Referring Provider Active Start: May 20, 2025 End: May 20, 2025 Team Status: Inactive Member Role/Relationship Status Dates Dr. Daron Benton MD Primary Care Provider Active Start: May 19, 2025 End: May 19, 2025 Dr. Yasmani Haynes DO Attending Provider Active Start: May 19, 2025 End: May 19, 2025 Dr. Yasmani Haynes DO Emergency Provider Active Start: May 19, 2025 End: May 19, 2025 Team Status: Active Member Role/Relationship Status Dates Dr. Daron Benton MD Primary Care Provider Active Start: June 03, 2025 Dr. Yasmani Haynes DO Emergency Provider Active Start: June 03, 2025 Dr. Roman Mckeon MD Admit Provider Active Star t: June 03, 2025 Dr. Roman Mckeon MD Attending Provider Active Start: June 03, 2025 Team Status: Inactive Member Role/Relationship Status Dates Dr. Daron Benton MD Primary Care Provider Active Start: June 03, 2025 End: June 09, 2025 Dr. Yasmani Haynes DO Emergency Provider Active Start: June 03, 2025 End: June 09, 2025 Dr. Roman Mckeon MD Admit Provider Active Star t: June 03, 2025 End: June 09, 2025 Dr. Roman Mckeon MD Other Provider Active Star t: June 03, 2025 End: June 09, 2025 Dr. Dex Worrell DO Attending Provider Active Start: June 03, 2025 End: June 09, 2025 Team Status: Active Member Role/Relationship Status Dates Dr. Daron Benton MD Primary Care Provider Active Start: June 03, 2025 Dr. Yasmani Haynes DO Emergency Provider Active Start: June 03, 2025 Dr. Roman Mckeon MD Admit Provider Active Star t: June 03, 2025 Dr. Roman Mckeon MD Attending Provider Active Start: June 03, 2025 Dr. Roman Mckeon MD Other Provider Active Star t: June 03, 2025 Team Status: Active Member Role/Relationship Status Dates Dr. Daron Benton MD Primary Care Provider Active Start: June 03, 2025 Dr. Yasmani Haynes DO Emergency Provider Active Start: June 03, 2025 Dr. Roman Mckeon MD Admit Provider Active Star t: June 03, 2025 Dr. Roman Mckeon MD Other Provider Active Star t: June 03, 2025 Dr. Kevin Gonzalez DO Attending Provider Active Start: June 03, 2025 Team Status: Active Member Role/Relationship Status Dates Dr. Daron Benton MD Primary Care Provider Active Start: June 04, 2025 Dr. Yasmani Haynes DO Emergency Provider Active Start: June 04, 2025 Dr. Roman Mckeon MD Admit Provider Active Star t: June 04, 2025 Dr. Roman Mckeon MD Attending Provider Active Start: June 04, 2025 Dr. Roman Mckeon MD Other Provider Active Star t: June 04, 2025 Team Status: Active Member Role/Relationship Status Dates Dr. Daron Benton MD Primary Care Provider Active Start: June 04, 2025 Dr. Yasmani Haynes DO Emergency Provider Active Start: June 04, 2025 Dr. Roman Mckeon MD Admit Provider Active Star t: June 04, 2025 Dr. Roman Mckeon MD Other Provider Active Star t: June 04, 2025 Dr. Kevin Gonzalez DO Attending Provider Active Start: June 04, 2025 Team Status: Active Member Role/Relationship Status Dates Dr. Daron Benton MD Primary Care Provider Active Start: June 05, 2025 Dr. Yasmani Haynes DO Emergency Provider Active Start: June 05, 2025 Dr. Roman Mckeon MD Admit Provider Active Star t: June 05, 2025 Dr. Roman Mckeon MD Attending Provider Active Start: June 05, 2025 Dr. Roman Mckeon MD Other Provider Active Star t: June 05, 2025 Team Status: Active Member Role/Relationship Status Dates Dr. Daron Benton MD Primary Care Provider Active Start: June 05, 2025 Dr. Yasmani Haynes DO Emergency Provider Active Start: June 05, 2025 Dr. Roman Mckeon MD Admit Provider Active Star t: June 05, 2025 Dr. Roman Mckeon MD Other Provider Active Star t: June 05, 2025 Dr. Kevin Gonzalez DO Attending Provider Active Start: June 05, 2025 Team Status: Active Member Role/Relationship Status Dates Dr. Daron Benton MD Primary Care Provider Active Start: June 06, 2025 Dr. Yasmani Haynes DO Emergency Provider Active Start: June 06, 2025 Dr. Roman Mckeon MD Admit Provider Active Star t: June 06, 2025 Dr. Roman Mckeon MD Attending Provider Active Start: June 06, 2025 Dr. Roman Mckeon MD Other Provider Active Star t: June 06, 2025 Team Status: Active Member Role/Relationship Status Dates Dr. Daron Benton MD Primary Care Provider Active Start: June 07, 2025 Dr. Yasmani Haynes DO Emergency Provider Active Start: June 07, 2025 Dr. Roman Mckeon MD Admit Provider Active Star t: June 07, 2025 Dr. Roman Mckeon MD Attending Provider Active Start: June 07, 2025 Dr. Roman Mckeon MD Other Provider Active Star t: June 07, 2025 Team Status: Active Member Role/Relationship Status Dates Dr. Daron Benton MD Primary Care Provider Active Start: June 08, 2025 Dr. Yasmani Haynes DO Emergency Provider Active Start: June 08, 2025 Dr. Roman Mckeon MD Admit Provider Active Star t: June 08, 2025 Dr. Roman Mckeon MD Other Provider Active Star t: June 08, 2025 Dr. Dex Worrell DO Attending Provider Active Start: June 08, 2025 Dr. Dex Worrell DO Other Provider Active S tart: June 08, 2025 Team Status: Active Member Role/Relationship Status Dates Dr. Daron Benton MD Primary Care Provider Active Start: June 09, 2025 Dr. Yasmani Haynes DO Emergency Provider Active Start: June 09, 2025 Dr. Roman Mckeon MD Admit Provider Active Star t: June 09, 2025 Dr. Roman Mckeon MD Other Provider Active Star t: June 09, 2025 Dr. Dex Worrell DO Attending Provider Active Start: June 09, 2025 Dr. Dex Worrell DO Other Provider Active S tart: June 09, 2025 Team Status: Active Member Role/Relationship Status Dates Dr. Daron Benton MD Primary Care Provider Active Start: June 09, 2025 Dr. Yasmani Haynes DO Emergency Provider Active Start: June 09, 2025 Dr. Roman Mckeon MD Admit Provider Active Star t: June 09, 2025 Dr. Roman Mckeon MD Other Provider Active Star t: June 09, 2025 Dr. Dex Worrell DO Other Provider Active S tart: June 09, 2025 Dr. Kevin Gonzalez DO Attending Provider Active Start: June 09, 2025 Team Status: Active Member Role/Relationship Status Dates Dr. Daron Benton MD Primary Care Provider Active Start: June 10, 2025 Lucas CHAWLA MD Attending Provider Active Start: June 10, 2025 Team Status: Inactive Member Role/Relationship Status [...] Provider Active Start: April 21, 2025 Dr. Sachni Murillo MD Other Provider Active Start: April [...] May 19, 2025 Dr. Yasmani Haynes DO Attending Provider Active Start: May 19, 2025 End: [...] May 20, 2025 End: May 20, 2025 Team Status: Inactive Member Role/Relationship Status Dates Dr. Daron Benton MD Primary Care Provider Active Start: June 03, 2025 End: June 09, 2025 Dr. Yasmani Haynes DO Emergency Provider Active Start: June 03, 2025 End: June 09, 2025 Dr. Roman Mckeon MD Admit Provider Active Star t: June 03, 2025 End: June 09, 2025 Dr. Roman Mckeon MD Other Provider Active Star t: June 03, 2025 End: June 09, 2025 Dr. Dex Worrell DO Attending Provider Active Start: June 03, 2025 End: June 09, 2025 Team Status: Active Member Role/Relationship Status Dates Dr. Daron Benton MD Primary Care Provider Active Start: June 03, 2025 Dr. Yasmani Haynes DO Emergency Provider Active Start: June 03, 2025 Dr. Roman Mckeon MD Admit Provider Active Star t: June 03, 2025 Dr. Roman Mckeon MD Attending Provider Active Start: June 03, 2025 Dr. Roman Mckeon MD Other Provider Active Star t: June 03, 2025 Team Status: Active Member Role/Relationship Status Dates Dr. Daron Benton MD Primary Care Provider Active Start: June 03, 2025 Dr. Yasmani Haynes DO Emergency Provider Active Start: June 03, 2025 Dr. Roman Mckeon MD Admit Provider Active Star t: June 03, 2025 Dr. Roman Mckeon MD Referring Provider Active Start: June 03, 2025 Dr. Roman Mckeon MD Other Provider Active Star t: June 03, 2025 Dr. Kevin Gonzalez DO Attending Provider Active Start: June 03, 2025 Team Status: Active Member Role/Relationship Status Dates Dr. Daron Benton MD Primary Care Provider Active Start: June 04, 2025 Dr. Yasmani Haynes DO Emergency Provider Active Start: June 04, 2025 Dr. Roman Mckeon MD Admit Provider Active Star t: June 04, 2025 Dr. Roman Mckeon MD Attending Provider Active Start: June 04, 2025 Dr. Roman Mckeon MD Other Provider Active Star t: June 04, 2025 Team Status: Active Member Role/Relationship Status Dates Dr. Daron Benton MD Primary Care Provider Active Start: June 04, 2025 Dr. Yasmani Haynes DO Emergency Provider Active Start: June 04, 2025 Dr. Roman Mckeon MD Admit Provider Active Star t: June 04, 2025 Dr. Roman Mckeon MD Referring Provider Active Start: June 04, 2025 Dr. Roman Mckeon MD Other Provider Active Star t: June 04, 2025 Dr. Kevin Gonzalez DO Attending Provider Active Start: June 04, 2025 Team Status: Active Member Role/Relationship Status Dates Dr. Daron Benton MD Primary Care Provider Active Start: June 05, 2025 Dr. Yasmani Haynes DO Emergency Provider Active Start: June 05, 2025 Dr. Roman Mckeon MD Admit Provider Active Star t: June 05, 2025 Dr. Roman Mckeon MD Attending Provider Active Start: June 05, 2025 Dr. Roman Mckeon MD Other Provider Active Star t: June 05, 2025 Team Status: Active Member Role/Relationship Status Dates Dr. Daron Benton MD Primary Care Provider Active Start: June 05, 2025 Dr. Yasmani Haynes DO Emergency Provider Active Start: June 05, 2025 Dr. Roman Mckeon MD Admit Provider Active Star t: June 05, 2025 Dr. Roman cMkeon MD Other Provider Active Star t: June 05, 2025 Dr. Kevin Gonzalez DO Attending Provider Active Start: June 05, 2025 Dr. Dex Worrell DO Referring Provider Active Start: June 05, 2025 Team Status: Active Member Role/Relationship Status Dates Dr. Daron Benton MD Primary Care Provider Active Start: June 06, 2025 Dr. Yasmani Haynes DO Emergency Provider Active Start: June 06, 2025 Dr. Roman Mckeon MD Admit Provider Active Star t: June 06, 2025 Dr. Roman Mckeon MD Attending Provider Active Start: June 06, 2025 Dr. Roman Mckeon MD Other Provider Active Star t: June 06, 2025 Team Status: Active Member Role/Relationship Status Dates Dr. Daron Benton MD Primary Care Provider Active Start: June 07, 2025 Dr. Yasmani Haynes DO Emergency Provider Active Start: June 07, 2025 Dr. Roman Mckeon MD Admit Provider Active Star t: June 07, 2025 Dr. Roman Mckeon MD Attending Provider Active Start: June 07, 2025 Dr. Roman Mckeon MD Other Provider Active Star t: June 07, 2025 Team Status: Active Member Role/Relationship Status Dates Dr. Daron Benton MD Primary Care Provider Active Start: June 08, 2025 Dr. Yasmani Haynes DO Emergency Provider Active Start: June 08, 2025 Dr. Roman Mckeon MD Admit Provider Active Star t: June 08, 2025 Dr. Roman Mckeon MD Other Provider Active Star t: June 08, 2025 Dr. Dex Worrell , Attending Provider Active Start: June 08, 2025 Dr. Dex Worrell DO Other Provider Active S tart: June 08, 2025 Team Status: Active Member Role/Relationship Status Dates Dr. Daron Benton MD Primary Care Provider Active Start: June 09, 2025 Dr. Yasmani Haynes DO Emergency Provider Active Start: June 09, 2025 Dr. Roman Mckeon MD Admit Provider Active Star t: June 09, 2025 Dr. Roman Mckeon MD Other Provider Active Star t: June 09, 2025 Dr. Dex Worrell DO Attending Provider Active Start: June 09, 2025 Dr. Dex Worrell DO Other Provider Active S tart: June 09, 2025 Team Status: Active Member Role/Relationship Status Dates Dr. Daron Benton MD Primary Care Provider Active Start: June 09, 2025 Dr. Yasmani Haynes DO Emergency Provider Active Start: June 09, 2025 Dr. Roman Mckeon MD Admit Provider Active Star t: June 09, 2025 Dr. Roman Mckeon MD Other Provider Active Star t: June 09, 2025 Dr. Dex Worrell , Other Provider Active S tart: June 09, 2025 Dr. Kevin Gonzalez , Attending Provider Active Start: June 09, 2025 Team Status: Active Member Role/Relationship Status Dates Dr. Daron Benton MD Primary Care Provider Active Start: June 10, 2025 Lucas CHAWLA MD Attending Provider Active Start: June 10, 2025 Team Status: Inactive Member Role/Relationship Status Dates Dr. Daron Benton MD Primary Care Provider Active Start: June 16, 2025 End: June 16, 2025 Dr. Lucas Wyatt MD Attending Provider Active Start: June 16, 2025 End: June 16, 2025 Team Status: Active Member Role/Relationship Status Dates Dr. Daron Benton MD Primary Care Provider Active Start: June 17, 2025 Lucas CHAWLA MD Attending Provider Active Start: June 17, 2025 Team Status: Active Member Role/Relationship Status Dates Dr. Daron Benton MD Primary Care Provider Active Start: June 24, 2025 Lucas CHAWLA MD Attending Provider Active Start: June 24, 2025 Team Status: Inactive Member Role/Relationship Status Dates Dr. Daron Benton MD Primary Care Provider Active Start: June 12, 2025 End: June 12, 2025 Karen Dias NP, TITLE DEPARTMENT MANAGER-C Attending Provider Active Start: June 12, 2025 End: June 12, 2025 Team Status: Inactive Member Role/Relationship Status Dates Dr. Daron Benton MD Primary Care Provider Active Start: June 16, 2025 End: June 16, 2025 Dr. Lucas Wyatt MD Attending Provider Active Start: June 16, 2025 End: June 16, 2025 Team Status: Active Member Role/Relationship Status Dates Dr. Daron Benton MD Primary Care Provider Active Start: June 17, 2025 Lucas CHAWLA MD Attending Provider Active Start: June 17, 2025 Team Status: Active Member Role/Relationship Status Dates Dr. Daron Benton MD Primary Care Provider Active Start: June 24, 2025 Lucas CHAWLA MD Attending Provider Active Start: June 24, 2025 Team Status: Inactive Member Role/Relationship Status Dates Dr. Daron Benton MD Primary Care Provider Active Start: June 10, 2025 End: June 10, 2025 Karen Dias TITLE DEPARTMENT MANAGER, TITLE DEPARTMENT MANAGER-C Attending Provider Active Start: June 10, 2025 End: June 10, 2025 Team Status: Inactive Member Role/Relationship Status Dates Dr. Daron Benton MD Primary Care Provider Active Start: June 12, 2025 End: June 12, 2025 Karen Dias TITLE DEPARTMENT MANAGER, TITLE DEPARTMENT MANAGER-C Attending Provider Active Start: June 12, 2025 End: June 12, 2025 Team Status: Inactive Member Role/Relationship Status Dates Dr. Daron Benton MD Primary Care Provider Active Start: June 16, 2025 End: June 16, 2025 Dr. Lucas Wyatt MD Attending Provider Active Start: June 16, 2025 End: June 16, 2025 Team Status: Active Member Role/Relationship Status Dates Dr. Daron Benton MD Primary Care Provider Active Start: June 17, 2025 Lucas CHAWLA MD Attending Provider Active Start: June 17, 2025 Team Status: Active Member Role/Relationship Status Dates Dr. Daron Benton MD Primary Care Provider Active Start: June 24, 2025 Lucas CHAWLA MD Attending Provider Active Start: June 24, 2025 Reason for Visit (unrecogniz ed section [...] or prosecute any alcohol or drug abuse patient.[facility] FOR RECORDS PERTAINING TO PATIENTS WHO ARE [...] BE BASED ON THE PRIMARY CLINICAL RECORDS. [employer] [facility]. provides no warranty or guarantee of the accuracy or completeness of information in this document.
[2025-07-05 20:54] VITALS: BMI 18.0
--- NOTE | 2025-07-05 21:46 | CT_ITS ---
PROCEDURE: CT BRAIN/HEAD WITHOUT CONTRAST 07/05/2025 REASON FOR EXAM: HEADACHE TECHNIQUE: CT BRAIN/HEAD WITHOUT CONTRAST Coronal and Sagittal reconstruction series were provided. One or more dose reduction techniques were used (e.g., Automated exposure control, adjustment of the mA and/or kV according to patient size, use of iterative reconstruction technique. RADIATION DOSE SUMMARY: CTDlvol: 44.99 mGy DLP: 863.6 mGycm COMPARISON: CT head 06/07/2025, brain MRI 05/20/2025. FINDINGS: No acute intracranial hemorrhage, extra-axial collection, mass effect or evidence of acute infarct. Mild generalized brain parenchymal volume loss, and moderate-advanced chronic small-vessel ischemic changes with multiple scattered foci of chronic lacunar/cortical infarcts in the bilateral cerebral hemispheres. Metallic clip versus coil embolization material in the anterior cranial fossa in the region of the anterior cerebral/anterior communicating artery. Atherosclerotic vascular calcifications. Intact skull base and calvarium. Well-aerated paranasal sinuses and mastoid air cells. CT/Brain/Head without Contrast IMPRESSION: 1. No evidence of acute intracranial pathology. 2. Aneurysm clip/coil embolization material in the anterior cranial fossa. 3. Mild volume loss, and moderate-advanced chronic small-vessel ischemic change s. Reading Location: [id number]
--- NOTE | 2025-07-05 21:58 | EX.ED.VIS.HA ---
HPI History of Present Illness Chief Complaint: Headache Informant: patient Narrative Narrative: Nontraumatic frontal headache since 3 PM photophobia nausea no vomiting no phonophobia. History of migraines however states has not had one in a while. She is on Eliquis for history of paroxysmal A-fib. Multiple allergies. Has taken Tylenol with no relief. Prior similar symptoms: Yes PFSH [facility] Medical History Hypertensive emergency NSTEMI, initial episode of care Mitral stenosis On home oxygen therapy Atrial fibrillation Chronic low back pain Diastolic hypertension Elevated troponin Chest pain PAF (paroxysmal atrial fibrillation) Emphysema of lung Smoking greater than 30 pack years Nicotine dependence, cigarettes, uncomplicated New onset atrial fibrillation Elevated troponin Atrial fibrillation Hypothyroidism Smoker Coronary artery disease TIA (transient ischemic attack) Influenza A [place] (dyspnea on exertion) Atherosclerotic heart disease of [place] coronary artery without angina pectoris Cardiac murmur Nonsustained paroxysmal supraventricular tachycardia Multiple sclerosis Nonobstructive atherosclerosis of coronary artery Peripheral vascular occlusive disease Essential (primary) hypertension Bilateral carotid artery stenosis History of transient ischemic attack (TIA) Fatty liver Thrombocytopenia GERD (gastroesophageal reflux disease) Psoriatic arthritis Psoriasis Osteoporosis Osteoarthritis Goiter Multiple sclerosis HLD (hyperlipidemia) Angina pectoris Chronic pain syndrome Home Medications ?Medication ?Instructions ?Recorded ?Last Taken ?Type levothyroxine 50 mcg tablet 50 mcg PO DAILY thyroid 08/11/21 04/21/25 History dextromethorphan-guaifenesin ER 60 1 tab PO Q12H PRN cough/congest 02/19/24 03/19/25 History mg-1,200 mg tab,extend release,12hr (Mucinex DM) famotidine 40 mg tablet 40 mg PO QDAY PRN indigestion 11/24/24 03/19/25 History apixaban 5 mg tablet (Eliquis) 5 mg PO Q12H anticoagulation #180 03/09/25 03/19/25 Rx Held on 06/07/25. tabs Instructions: Resume on 06/18/25. cholecalciferol (vitamin D3) 125 125 mcg PO DAILY supplement 04/18/25 Unknown History mcg (5,000 unit) capsule docusate sodium 100 mg capsule 100 mg PO BID stool softener 7 04/18/25 Unknown Rx (Colace) days #14 caps doxepin 10 mg/mL oral concentrate 5 - 10 mg PO QHS back 04/18/25 Unknown History rosuvastatin 10 mg tablet 10 mg PO QHS hld 04/18/25 Unknown History polysaccharide iron complex 150 mg 150 mg PO DAILY 90 days #90 caps 04/22/25 Unknown Rx iron capsule (Ferrex) amlodipine 2.5 mg tablet 2.5 mg PO QDAY bp 05/13/25 Unknown History capsaicin 0.1 % topical cream 1 applic topical TID #60 grams 05/19/25 Unknown Rx food supplemt, lactose-reduced 120 ml PO TIDCM #21,330 mL 06/07/25 Unknown Rx 0.08 gram-1.5 kcal/mL oral liquid (Ensure Plus High Protein) pantoprazole 40 mg tablet,delayed 40 mg PO BID #120 tabs 06/07/25 Unknown Rx release (Protonix) baclofen 10 mg tablet 10 mg PO TID #0 tabs 06/09/25 Unknown Rx furosemide 40 mg tablet 40 mg PO BIDLX #0 tabs 06/09/25 Unknown Rx gabapentin 300 mg capsule 300 mg PO TID #0 caps 06/09/25 Unknown Rx oxycodone 5 mg tablet 10 mg (2 x 5 mg) PO Q6H PRN PRN 06/09/25 Unknown Rx Pain Score 4-10 3 days #15 tabs pantoprazole 40 mg tablet,delayed 40 mg PO BIDCM #1 TAB 06/09/25 Unknown Rx release (Protonix) paroxetine HCl 10 mg tablet 10 mg PO DAILY #0 tabs 06/09/25 Unknown Rx potassium chloride 20 mEq 20 meq PO BIDCM #0 tabs 06/09/25 Unknown Rx tablet,extended release(part/cryst) quetiapine 25 mg tablet 50 mg (2 x 25 mg) PO QHS #0 tabs 06/09/25 Unknown Rx Allergy/AdvReac Type Severity Reaction Status Date / Time colestipol (From Colestid) Allergy Mild unknown Verified 07/05/25 20:39 pregabalin (From Lyrica) Allergy Mild Hives Verified 07/05/25 20:39 amitriptyline Allergy Rash Verified 07/05/25 20:39 temazepam (From Restoril) AdvReac Mild Nausea/Vom/ Verified 07/05/25 20:39 Diarrhea Antihistamines - Alkylamine AdvReac Nausea/Vom/ Verified 07/05/25 20:39 Diarrhea Antihistamines - Ethanolamine AdvReac Nausea/Vom/ Verified 07/05/25 20:39 Diarrhea Antihistamines - AdvReac Nausea/Vom/ Verified 07/05/25 20:39 Ethylenediamine Diarrhea Antihistamines - Piperazine AdvReac Nausea/Vom/ Verified 07/05/25 20:39 Diarrhea Antihistamines - Piperidine AdvReac Nausea/Vom/ Verified 07/05/25 20:39 Diarrhea aspirin AdvReac I'M ON Verified 07/05/25 20:39 BLOOD THINNERS codeine AdvReac Nausea Verified 07/05/25 20:39 Corticosteroids AdvReac Upset Verified 07/05/25 20:39 (Glucocorticoids) Stomach morphine AdvReac Nausea Verified 07/05/25 20:39 [id number] Reductase AdvReac Nausea Verified 07/05/25 20:39 Inhibitor (Owqvwzn-Qsv-Pfk Reductase Inhibitor) Family History Mother Cancer CAD (coronary artery disease) Brain tumor Grandfather CVA (cerebral vascular accident) Father CAD (coronary artery disease) Ruptured abdominal aortic aneurysm (AAA) Sister Brain aneurysm Surgical History History of coronary artery stent placement History of appendectomy History of cholecystectomy History of angioplasty of peripheral vessel (07/11/19) Stenosis of left subclavian artery History of left heart catheterization (01/25/15) S/P coil embolization of cerebral aneurysm History of angioplasty of peripheral vessel History of right-sided carotid endarterectomy History of left-sided carotid endarterectomy History of partial thyroidectomy (11/30/05) History of hemorrhoidectomy History of hysterectomy History of section Brain aneurysm Fracture of right lower leg S/P insertion of iliac artery stent History of left breast biopsy H/O hemorrhoidectomy S/P hysterectomy H/O: S/P thyroidectomy Social History household members: none housing: apartment Smoking Status: Current every day smoker tobacco type: cigarettes alcohol intake: never caffeine: Yes Type: coffee and tea ROS ROS ED Constitutional Constitutional ED: Denies chills, fever(s) or sweats Eyes Eyes: Reports other Details: Photophobia ENT ENT ED: Denies sore throat Cardiovascular Cardiovascular: Denies chest pain, leg edema, palpitations or racing heartbeat Respiratory/Chest Respiratory/Chest: Denies cough, dyspnea or dyspnea on exertion Gastrointestinal Gastrointestinal: Reports nausea; Denies abdominal pain, diarrhea or vomiting Genitourinary Genitourinary ED: Denies dysuria, hematuria or urinary frequency Musculoskeletal Musculoskeletal: Denies back pain, extremity pain or neck pain Integumentary Denies rash or wounds Neurologic Neurologic: Reports headache(s); Denies paresthesias or weakness EXAM Physical Exam Const Vital Signs: 07/05/25 20:39 07/05/25 22:38 07/05/25 23:28 Temperature 97.3 F L 98.6 F Temperature Source Temporal Pulse Rate 88 76 76 Respiratory Rate 18 16 16 Blood Pressure 196/102 H 181/101 H 148/99 H Blood Pressure Mean 133 127 115 Pulse Ox 99 100 100 Oxygen Delivery Method Room Air Room Air Positive well nourished and well developed General Appearance ED: well developed and NAD HEENT Reports moist mucous membranes HEENT Narrative: No temporal artery tenderness normocephalic and atraumatic Eyes PERRL and EOMs intact bilaterally General Eye ED: Yes normal appearance of both eyes Neck full ROM, no lymphadenopathy and no meningeal signs Chest Wall Chest: Negative for tenderness Resp normal respiratory effort and normal air movement Effort and Inspection: symmetric chest movement; Negative for respiratory distress Cardio regular rate, regular rhythm and no murmurs Peripheral Pulses: pulses 2+ throughout GI normal to inspection, nondistended, normoactive bowel sounds and non-tender Palpation: Negative for guarding or rebound tenderness present Extremity normal to inspection General Extremety ED: Negative for edema or tenderness General Extremity: Negative for edema Neuro oriented x3, CN's II-XII intact bilaterally and no sensory deficits noted Neuro Narrative: No focal deficits Sensorium / Orientation: awake and alert Skin no rashes or lesions noted and no wounds MDM MDM MDM Narrative Medical decision making narrative: Interventions / MDM: Differential diagnosis: Migraine headache Diagnosis considered but do not suspect: Intracranial hemorrhage however CT negative. No meningismus. My EKG interpretation: N/A Imaging independently reviewed and interpreted by myself: CT brain: No acute process. Aneurysm clips noted anterior fossa. No intracranial hemorrhage. External documents reviewed: N/A Test considered but not ordered:N/A ED course: Nontraumatic headache no meningismus. Blood pressure 196/120 on arrival she is on Eliquis. Migraine-like symptoms. Will establish IV fluids lower dose Reglan and Benadryl due to her age. With her on Eliquis and headache we will obtain CT scan of the brain. 2320: Clinically feeling much better on reevaluation. CT head was negative. Patient discharged with outpatient follow-up. All questions were answered. Re-evaluation: stable Disposition discussed with patient/family/significant other: Patient Case discussed with consulting clinician: N/A This note was generated with [employer] software. It may contain incorrect words, spelling, and punctuation that were not noted in checking the note before signing. Radiography Diagnostic Testing: Clinical Impression(s) from Imaging Studies Brain CT 07/05/25 21:46 IMPRESSION: 1. No evidence of acute intracranial pathology. 2. Aneurysm clip/coil embolization material in the anterior cranial fossa. 3. Mild volume loss, and moderate-advanced chronic small-vessel ischemic changes. Reading Location: [facility] Discharge Plan Triage Chief Complaint: Headache ED Provider: Jaya Campbell Dx/Rx/DC Orders Clinical Impression: Headache, migraine, Chronic anticoagulation Instructions: ED, Migraine (Classical) Prescriptions: No Action levothyroxine 50 mcg tablet 50 mcg PO DAILY Patient Comments: take 1 tablet by mouth once daily famotidine 40 mg tablet 40 mg PO QDAY PRN (Reason: indigestion) dextromethorphan-guaifenesin [Mucinex DM] 60-1,200 mg tablet extended release 12 hr 1 tab PO Q12H PRN (Reason: cough/congest) doxepin 10 mg/mL concentrate 5 - 10 mg PO QHS cholecalciferol (vitamin D3) 125 mcg (5,000 unit) capsule 125 mcg PO DAILY rosuvastatin 10 mg tablet 10 mg PO QHS polysaccharide iron complex [Ferrex 150] 150 mg iron Capsule 150 mg PO DAILY 90 Days Qty: 90 0RF capsaicin 0.1 % cream 1 applic topical TID Qty: 60 0RF Rx Instructions: do not wash area for at least 30 min after application docusate sodium [Colace] 100 mg capsule 100 mg PO BID 7 Days Qty: 14 0RF Ensure Plus High Protein 0.08 gram-1.5 kcal/mL Liquid 120 ml PO TIDCM Qty: 32195 0RF pantoprazole [Protonix] 40 mg tablet,delayed release (DR/EC) 40 mg PO BID Qty: 120 0RF furosemide 40 mg Tablet 40 mg PO BIDLX Qty: 0 0RF baclofen 10 mg Tablet 10 mg PO TID Qty: 0 0RF oxycodone 5 mg Tablet 10 mg PO Q6H PRN PRN (Reason: Pain Score 4-10) 3 Days Qty: 15 0RF quetiapine 25 mg Tablet 50 mg PO QHS Qty: 0 0RF paroxetine HCl 10 mg Tablet 10 mg PO DAILY Qty: 0 0RF potassium chloride 20 mEq Tablet,Er Particles/Crystals 20 meq PO BIDCM Qty: 0 0RF gabapentin 300 mg Capsule 300 mg PO TID Qty: 0 0RF pantoprazole [Protonix] 40 mg tablet,delayed release (DR/EC) 40 mg PO BIDCM Qty: 1 0RF Eliquis 5 mg tablet 5 mg PO Q12H Qty: 180 3RF amlodipine 2.5 mg tablet 2.5 mg PO QDAY Primary Care Provider: Daron Benton Referrals: Daron Benton MD [Primary Care Provider] - 1 Week Activity Restrictions/Additional Instructions: CT brain negative. Print Language: French Disposition Disposition: Home, Self Care Discharge Date/Time: 07/05/25 23:43
[2025-07-05] MEDS: 0.9% Normal Saline (1000mL) 1,000 ML 999 ML IV (22:16)
[2025-07-05] MEDS: DiphenhydrAMINE 50 MG/ML Syringe 12.5 MG IV (22:17)
[2025-07-05 22:38] VITALS: BP 181/101; PULSE 76; RESP 16; O2SAT 100
[2025-07-05 23:28] VITALS: BP 148/99; PULSE 76; RESP 16; TEMP 37; O2SAT 100
== END 2025-07-05 23:43 | disposition home or self-care (01) ==
PROVIDERS: Emergency Provider Emergency Medicine; PCP Family Medicine; Visit Provider Emergency Medicine
DX: G43.909 Migraine, unspecified, not intractable, without status migrainosus (principal); I48.0 Paroxysmal atrial fibrillation; I25.10 Atherosclerotic heart disease of native coronary artery without angina pectoris; F17.210 Nicotine dependence, cigarettes, uncomplicated; E78.5 Hyperlipidemia, unspecified; I10 Essential (primary) hypertension; Z79.01 Long term (current) use of anticoagulants; Z86.73 Personal history of transient ischemic attack (TIA), and cerebral infarction without residual deficits; E03.9 Hypothyroidism, unspecified; Z79.890 Hormone replacement therapy; K21.9 Gastro-esophageal reflux disease without esophagitis; Z79.899 Other long term (current) drug therapy; I25.2 Old myocardial infarction; Z95.5 Presence of coronary angioplasty implant and graft; Z90.49 Acquired absence of other specified parts of digestive tract; Z90.710 Acquired absence of both cervix and uterus
CPT/HCPCS: 70450; 96361; 96374; 96375; 99284

== ENCOUNTER 2025-07-22 21:53 | Emergency (ER) | payer MEDICARE, MEDICAID, SELFPAY ==
[2025-07-22 21:56] VITALS: BP 212/94; PULSE 74; RESP 18; TEMP 36.5; O2SAT 98; BMI 18.1
--- NOTE | 2025-07-22 23:12 | CT_ITS ---
PROCEDURE: BRAIN/HEAD WITHOUT CONTRAST 07/22/2025 REASON FOR EXAM: HEADACHE ON BLOOD THINNER TECHNIQUE: Procedure Code: CTBR Modality: CT Procedure: BRAIN/HEAD WITHOUT CONTRAST Coronal and Sagittal reconstruction series were provided. One or more dose reduction techniques were used (e.g., Automated exposure control, adjustment of the mA and/or kV according to patient size, use of iterative reconstruction technique. RADIATION DOSE SUMMARY: CTDlvol: 44.99 mGy DLP: 846 mGycm COMPARISON: CT scan on 07/05/2025. FINDINGS: Unchanged coil at the topography of the anterior communicating artery. Mild diffuse cortical atrophy, commensurate with the patient's age. Scattered hypodense foci in the periventricular and subcortical white matter suggestive of chronic ischemic white matter disease. Normal size of the ventricles and extra-axial spaces for the patient's age. Normal basal ganglia and thalami. Normal brainstem. Normal cerebellum. There is no demonstrated extra-axial, intraparenchymal, or intraventricular hemorrhage. There are no findings of an acute ischemic infarction. Normal calvarium. There is no demonstrated fracture. Normal soft tissue structures. Normal visualized paranasal sinuses. CT/Brain/Head without Contrast IMPRESSION: No CT evidence for acute brain abnormality. Reading [facility]
--- NOTE | 2025-07-22 23:14 | EX.ED.VIS.HA ---
HPI History of Present Illness Chief Complaint: Headache Informant: patient Onset/Context/Timing Onset: Today Context: Gradual Timing: Continuous Quality -Headache: Positive for Similar Prior Headaches Current Severity: Moderate Maximum Severity: Moderate Associated Symptoms/Injury Associated Symptoms: Positive for Nausea; Negative for Fever, Vomiting, Sore Throat, Sinus Pressure or Preceding Aura Injury - VOSS: Negative for Direct Trauma, Fall or Assault Narrative Narrative: 70-year-old female history of A-fib, TIA on blood thinner Eliquis. Also has had a carotid bypass. States that tonight she felt her blood pressure was elevated 200 over around 100. She started gradually getting a headache about 2 hours ago primarily behind her right eye. Denies any fall injury or trauma. She has mild nausea. Denies any weakness to her upper or lower extremities. No visual change. The light does bother her eyes. Denies any fever or neck pain. Prior similar symptoms: Yes Recent Illness/Hospitalization: No PFSH PFSH Medical History Hypertensive emergency NSTEMI, initial episode of care Mitral stenosis On home oxygen therapy Atrial fibrillation Chronic low back pain Diastolic hypertension Elevated troponin Chest pain PAF (paroxysmal atrial fibrillation) Emphysema of lung Smoking greater than 30 pack years Nicotine dependence, cigarettes, uncomplicated New onset atrial fibrillation Elevated troponin Atrial fibrillation Hypothyroidism Smoker Coronary artery disease TIA (transient ischemic attack) Influenza A [place] (dyspnea on exertion) Atherosclerotic heart disease of [place] coronary artery without angina pectoris Cardiac murmur Nonsustained paroxysmal supraventricular tachycardia Multiple sclerosis Nonobstructive atherosclerosis of coronary artery Peripheral vascular occlusive disease Essential (primary) hypertension Bilateral carotid artery stenosis History of transient ischemic attack (TIA) Fatty liver Thrombocytopenia GERD (gastroesophageal reflux disease) Psoriatic arthritis Psoriasis Osteoporosis Osteoarthritis Goiter Multiple sclerosis HLD (hyperlipidemia) Angina pectoris Chronic pain syndrome Home Medications ?Medication ?Instructions ?Recorded ?Last Taken ?Type levothyroxine 50 mcg tablet 50 mcg PO DAILY thyroid 08/11/21 04/21/25 History dextromethorphan-guaifenesin ER 60 1 tab PO Q12H PRN cough/congest 02/19/24 03/19/25 History mg-1,200 mg tab,extend release,12hr (Mucinex DM) famotidine 40 mg tablet 40 mg PO QDAY PRN indigestion 11/24/24 03/19/25 History apixaban 5 mg tablet (Eliquis) 5 mg PO Q12H anticoagulation #180 03/09/25 03/19/25 Rx Held on 06/07/25. tabs Instructions: Resume on 06/18/25. cholecalciferol (vitamin D3) 125 125 mcg PO DAILY supplement 04/18/25 Unknown History mcg (5,000 unit) capsule docusate sodium 100 mg capsule 100 mg PO BID stool softener 7 04/18/25 Unknown Rx (Colace) days #14 caps doxepin 10 mg/mL oral concentrate 5 - 10 mg PO QHS back 04/18/25 Unknown History rosuvastatin 10 mg tablet 10 mg PO QHS hld 04/18/25 Unknown History polysaccharide iron complex 150 mg 150 mg PO DAILY 90 days #90 caps 04/22/25 Unknown Rx iron capsule (Ferrex) amlodipine 2.5 mg tablet 2.5 mg PO QDAY bp 05/13/25 Unknown History capsaicin 0.1 % topical cream 1 applic topical TID #60 grams 05/19/25 Unknown Rx food supplemt, lactose-reduced 120 ml PO TIDCM #21,330 mL 06/07/25 Unknown Rx 0.08 gram-1.5 kcal/mL oral liquid (Ensure Plus High Protein) pantoprazole 40 mg tablet,delayed 40 mg PO BID #120 tabs 06/07/25 Unknown Rx release (Protonix) baclofen 10 mg tablet 10 mg PO TID #0 tabs 06/09/25 Unknown Rx furosemide 40 mg tablet 40 mg PO BIDLX #0 tabs 06/09/25 Unknown Rx gabapentin 300 mg capsule 300 mg PO TID #0 caps 06/09/25 Unknown Rx oxycodone 5 mg tablet 10 mg (2 x 5 mg) PO Q6H PRN PRN 06/09/25 Unknown Rx Pain Score 4-10 3 days #15 tabs pantoprazole 40 mg tablet,delayed 40 mg PO BIDCM #1 TAB 06/09/25 Unknown Rx release (Protonix) paroxetine HCl 10 mg tablet 10 mg PO DAILY #0 tabs 06/09/25 Unknown Rx potassium chloride 20 mEq 20 meq PO BIDCM #0 tabs 06/09/25 Unknown Rx tablet,extended release(part/cryst) quetiapine 25 mg tablet 50 mg (2 x 25 mg) PO QHS #0 tabs 06/09/25 Unknown Rx carvedilol 3.125 mg tablet 3.125 mg PO BIDCM heart #180 tabs 07/22/25 Unknown Rx Allergy/AdvReac Type Severity Reaction Status Date / Time colestipol (From Colestid) Allergy Mild unknown Verified 07/22/25 21:55 pregabalin (From Lyrica) Allergy Mild Hives Verified 07/22/25 21:55 amitriptyline Allergy Rash Verified 07/22/25 21:55 temazepam (From Restoril) AdvReac Mild Nausea/Vom/ Verified 07/22/25 21:55 Diarrhea Antihistamines - Alkylamine AdvReac Nausea/Vom/ Verified 07/22/25 21:55 Diarrhea Antihistamines - Ethanolamine AdvReac Nausea/Vom/ Verified 07/22/25 21:55 Diarrhea Antihistamines - AdvReac Nausea/Vom/ Verified 07/22/25 21:55 Ethylenediamine Diarrhea Antihistamines - Piperazine AdvReac Nausea/Vom/ Verified 07/22/25 21:55 Diarrhea Antihistamines - Piperidine AdvReac Nausea/Vom/ Verified 07/22/25 21:55 Diarrhea aspirin AdvReac I'M ON Verified 07/22/25 21:55 BLOOD THINNERS codeine AdvReac Nausea Verified 07/22/25 21:55 Corticosteroids AdvReac Upset Verified 07/22/25 21:55 (Glucocorticoids) Stomach morphine AdvReac Nausea Verified 07/22/25 21:55 [id number] Reductase AdvReac Nausea Verified 07/22/25 21:55 Inhibitor (Vyhdlls-Dgm-Dwv Reductase Inhibitor) Family History Mother Cancer CAD (coronary artery disease) Brain tumor Grandfather CVA (cerebral vascular accident) Father CAD (coronary artery disease) Ruptured abdominal aortic aneurysm (AAA) Sister Brain aneurysm Surgical History History of coronary artery stent placement History of appendectomy History of cholecystectomy History of angioplasty of peripheral vessel (07/11/19) Stenosis of left subclavian artery History of left heart catheterization (01/25/15) S/P coil embolization of cerebral aneurysm History of angioplasty of peripheral vessel History of right-sided carotid endarterectomy History of left-sided carotid endarterectomy History of partial thyroidectomy (11/30/05) History of hemorrhoidectomy History of hysterectomy History of section Brain aneurysm Fracture of right lower leg S/P insertion of iliac artery stent History of left breast biopsy H/O hemorrhoidectomy S/P hysterectomy H/O: S/P thyroidectomy Social History household members: none housing: apartment Smoking Status: Current every day smoker tobacco type: cigarettes alcohol intake: never caffeine: Yes Type: coffee and tea ROS ROS ED ROS Narrative Headache. Constitutional Constitutional ED: Denies chills or fever(s) Eyes Eyes: Denies blurry vision ENT ENT ED: Denies ear pain Cardiovascular Cardiovascular: Denies chest pain Respiratory/Chest Respiratory/Chest: Denies cough or dyspnea Gastrointestinal Gastrointestinal: Denies abdominal pain Genitourinary Genitourinary ED: Denies dysuria or hematuria Musculoskeletal Musculoskeletal: Denies arthralgias Integumentary Denies abscess or Abrasions Neurologic Neurologic: Reports headache(s); Denies paresthesias Psychiatric Psychiatric: Denies anxiety or depression Endocrine Endocrinology: Denies polydipsia Hematologic/Lymphatic Hematologic/Lymphatic: Denies easy bleeding or easy bruising Allergic/Immunologic Allergic/Immunologic ED: Denies mouth swelling, tongue swelling or urticaria EXAM Physical Exam Narrative Exam Narrative: 70-year-old female sitting upright in bed in a darkened room. Vital signs stable except blood pressure is elevated 212/94. She does not look septic toxic or in distress. H EENT exam pupils round react to light. Extra motions are intact. No signs of trauma to her face or scalp. No bruising or swelling. No tenderness. Neck nontender no meningismus no lymphadenopathy. Back nontender. Lungs clear to auscultation bilaterally. Heart rate about 75 no murmur. Chest wall and ribs nontender. Moving all 4 extremities. Calves are nontender without edema or cords. 5 out of 5 key account coordinator strength. Dorsi plantarflexion intact. Neurologic exam she is awake alert. Answer questions following commands. Normal speech. No facial droop. Again normal key account coordinator strength and dorsi plantarflexion. Fingertip to nose within normal limits no drift. NIH 0. Const Vital Signs: 07/22/25 21:56 07/22/25 23:30 07/22/25 23:31 Temperature 97.7 F L Temperature Source Temporal Pulse Rate 74 67 Respiratory Rate 18 Respiratory Effort Normal Non-Labored Respiratory Pattern Normal Blood Pressure 212/94 H 180/86 H Blood Pressure Mean 133 117 Pulse Ox 98 Oxygen Delivery Method Room Air Positive well nourished and well developed; Negative for obese, cachectic, contractures or unkempt General Appearance ED: well developed and NAD; Negative for unkempt, cachectic, contractures, cyanotic or diaphoretic Nutritional Appearance: Negative for cachectic or obese HEENT Reports normocephalic and moist mucous membranes atraumatic; Negative for trauma, tenderness, temporal artery tenderness or vesicular rash Face and Sinus: Negative for sinus tenderness Eyes PERRL and EOMs intact bilaterally General Eye ED: Negative for pale conjunctiva Neck no lymphadenopathy, supple, no meningeal signs and no JVD Resp normal respiratory effort and clear to auscultation bilaterally Cardio regular rate, regular rhythm, S1 normal heart sound, S2 normal heart sound and no murmurs GI non-tender and non-distended Auscultation: normoactive bowel sounds Palpation: soft; Negative for firm, tender or guarding Back/Spine no CVA tenderness General Back: Negative for CVA tenderness or tenderness Cervical Spine: Negative for cervical spine tenderness Thoracic Spine / Upper Back: Negative for thoracic spinal tenderness Lumbar Spine / Lower Back: Negative for lumbar spinal tenderness Extremity normal to inspection, full ROM and normal capillary refill Neuro oriented x3 and CN's II-XII intact bilaterally Sensorium / Orientation: awake, alert, oriented to person, oriented to place and oriented to time; Negative for orientation impaired, lethargic or stuporous Coordination / Balance: [id number] test normal Speech: speech normal Motor Exam: strength 5/5 throughout Psych mental status grossly normal Appearance: Negative for unkempt Skin General Skin Exam: elasticity normal; Negative for turgor normal Lesions: no lesions Rashes: no rashes MDM MDM MDM Narrative Medical decision making narrative: 70-year-old female elevated blood pressure on the blood thinner Eliquis due to A-fib with a headache. Also has a history of a coiled prior brain aneurysm. CAT scan. Benign exam. She be treated with Zofran for her nausea Tylenol for pain and Lopressor for pressure. Repeat exam patient doing well at 12:13 AM. Headache is resolved. Neurologic exam remains normal. Blood pressure is improving at 176/81. She is resting comfortably. Appears well. Currently does not need anything for pain or otherwise. Repeat exam patient is doing well at 12:40 AM. She feels good. We went over her CAT scan and lab results she is comfortable being discharged home. Blood pressure is better. And clinically she is feeling much better. Repeat neurologic exam is normal. History & Record Review Discussion w/independent historian: Patient Additional record(s) reviewed:: Prior inpatient record, Prior outpatient record, Prior ED visit and Prior labs Lab Data Attestation: I reviewed the patient's lab results. Lab results narrative: CBC shows a normal white count of 6. H&H 11.6 and 36. Platelets 147. Electrolytes show a gap of 10. BUN and creatinine of 29 and 1.1. Glucose 125. All consistent with prior labs. Labs: Laboratory Results - last 24 hr 07/22/25 23:40 WBC 6.8 RBC 4.27 Hgb 11.6 L Hct 36.7 L MCV 85.9 MCH 27.2 MCHC 31.6 L RDW Std Deviation 59.1 H RDW Coeff of David 18.6 H Plt Count 147 L MPV 9.5 Immature Gran % (Auto) 1.200 H Neut % (Auto) 70.7 H Lymph % (Auto) 12.6 L [place] % (Auto) 9.6 Eos % (Auto) 5.0 Baso % (Auto) 0.9 Absolute Neuts (auto) 4.8 Absolute Lymphs (auto) 0.86 Nucleated RBC % 0 Sodium 139 Potassium 4.0 Chloride 94 L Carbon Dioxide 34.0 H Anion Gap 10 BUN 29 H Creatinine 1.14 Estim Creat Clear Calc 35.46 L Est GFR (MDRD) Non-Af 51 L BUN/Creatinine Ratio 25.8 H Glucose 125 H Calcium 9.4 Discharge Plan Triage Chief Complaint: Headache Other Complaint: Hypertension ED Provider: Ramírez Onofre Dx/Rx/DC Orders Clinical Impression: Acute headache, Chronic anticoagulation, Hypertension Instructions: ED Headache Unspecified, ED Hypertension, Established Prescriptions: No Action levothyroxine 50 mcg tablet 50 mcg PO DAILY Patient Comments: take 1 tablet by mouth once daily famotidine 40 mg tablet 40 mg PO QDAY PRN (Reason: indigestion) dextromethorphan-guaifenesin [Mucinex DM] 60-1,200 mg tablet extended release 12 hr 1 tab PO Q12H PRN (Reason: cough/congest) doxepin 10 mg/mL concentrate 5 - 10 mg PO QHS cholecalciferol (vitamin D3) 125 mcg (5,000 unit) capsule 125 mcg PO DAILY rosuvastatin 10 mg tablet 10 mg PO QHS polysaccharide iron complex [Ferrex 150] 150 mg iron Capsule 150 mg PO DAILY 90 Days Qty: 90 0RF capsaicin 0.1 % cream 1 applic topical TID Qty: 60 0RF Rx Instructions: do not wash area for at least 30 min after application docusate sodium [Colace] 100 mg capsule 100 mg PO BID 7 Days Qty: 14 0RF Ensure Plus High Protein 0.08 gram-1.5 kcal/mL Liquid 120 ml PO TIDCM Qty: 95548 0RF pantoprazole [Protonix] 40 mg tablet,delayed release (DR/EC) 40 mg PO BID Qty: 120 0RF furosemide 40 mg Tablet 40 mg PO BIDLX Qty: 0 0RF baclofen 10 mg Tablet 10 mg PO TID Qty: 0 0RF oxycodone 5 mg Tablet 10 mg PO Q6H PRN PRN (Reason: Pain Score 4-10) 3 Days Qty: 15 0RF quetiapine 25 mg Tablet 50 mg PO QHS Qty: 0 0RF paroxetine HCl 10 mg Tablet 10 mg PO DAILY Qty: 0 0RF potassium chloride 20 mEq Tablet,Er Particles/Crystals 20 meq PO BIDCM Qty: 0 0RF gabapentin 300 mg Capsule 300 mg PO TID Qty: 0 0RF pantoprazole [Protonix] 40 mg tablet,delayed release (DR/EC) 40 mg PO BIDCM Qty: 1 0RF Eliquis 5 mg tablet 5 mg PO Q12H Qty: 180 3RF amlodipine 2.5 mg tablet 2.5 mg PO QDAY carvedilol 3.125 mg tablet 3.125 mg PO BIDCM Qty: 180 3RF Primary Care Provider: Daron Benton Referrals: Daron Benton MD [Primary Care Provider] - 3-5 Days if not improving Activity Restrictions/Additional Instructions: Check your blood pressures twice daily over the next 5 to 7 days. Follow-up with your primary care physician if your blood pressures are running reasonably well. Take your medications as prescribed. Tylenol for pain. Print Language: Wallisian Disposition Disposition: Home, Self Care
[2025-07-22 23:30] VITALS: BP 180/86; PULSE 67
[2025-07-22 23:58] LABS: Hematocrit 36.7 % (37-47); Hemoglobin 11.6 g/dL (12.0-15.0); Immature Granulocytes Count 0.080 X10^3/uL (0.0-0.0); Mean Corp Hgb Conc 31.6 g/dL (32-36); Mean Corpuscular Volume 85.9 fL (81-99); Mean Platelet Vol. 9.5 fl (6.2-12.0); NRBC Flagged by Analyzer 0 % (0-5); Platelet Count 147 K/mm3 (150-450); RBC Distribution Width CV 18.6 % (11.6-14.6); RBC Distribution Width SD 59.1 fl (35.1-43.9); Red Blood Count 4.27 M/mm3 (4.2-5.4); White Blood Count 6.8 K/mm3 (4.4-11.0)
[2025-07-23 00:06] LABS: Anion Gap 10 (5-15); BUN 29 mg/dL (4-19); BUN/Creat Ratio 25.8 RATIO (10-20); Calcium,Total 9.4 mg/dL (7.6-11.0); Carbon Dioxide 34.0 mmol/L (21.0-32.0); Chloride 94 mmol/L (98-108); Estimated Creatinine Clearance 35.46 ml/min (50-250); Glucose 125 mg/dL (70-99); Potassium 4.0 mmol/L (3.3-5.1)
[2025-07-23 00:50] VITALS: BP 135/74; PULSE 70; RESP 18; TEMP 36.8; O2SAT 97
== END 2025-07-23 00:53 | disposition home or self-care (01) ==
PROVIDERS: Emergency Provider Emergency Medicine; PCP Family Medicine; Visit Provider Emergency Medicine
DX: R51.9 Headache, unspecified (principal); G35 Multiple sclerosis; I48.0 Paroxysmal atrial fibrillation; I10 Essential (primary) hypertension; F17.210 Nicotine dependence, cigarettes, uncomplicated; Z79.01 Long term (current) use of anticoagulants; Z79.899 Other long term (current) drug therapy
CPT/HCPCS: 70450; 80048; 85025; 96374; 96375; 99284; A4216; J2405

== ENCOUNTER 2025-07-31 21:02 | Emergency (ER) | payer MEDICARE, MEDICAID, SELFPAY ==
[2025-07-31 21:02] VITALS: BP 189/104; PULSE 71; RESP 18; TEMP 36.6; O2SAT 99; BMI 18.1
--- NOTE | 2025-07-31 21:24 | EKG12_ITS ---
Test Reason : CP Blood Pressure : */* mmHG Vent. Rate : 60 BPM Atrial Rate : 60 BPM P-R Int : 154 ms QRS Dur : 80 ms QT Int : 486 ms P-R-T Axes : 62 18 63 degrees QTcB Int : 486 ms Normal sinus rhythm Possible Left atrial enlargement QTcB >= 480 msec Abnormal ECG Confirmed by Roberto Smiley ([id number]), business editor ADI CORDERO ([id number]) on 08/03/2025 1:17:12 PM Referred By: BORIS Confirmed By: Roberto Smiley
--- OUTSIDE RECORDS SUMMARY | 2025-07-31 21:24 | XMS RPT_ITS | CCD ---
Author Organization [facility] Care Team Providers Care Marketing Team Lead Name Role Phone YOGESH ONOFRE Unavailable Unavailabl ZHANE Vásquez Unavailable Unavailable YOGESH ONOFRE Unavailable Unavailable ZHANE DE Unavailable Unavailable ZHANE DE Unavailable Unavailable Dr. Jacinda Benton Primary Care Provider [phone] Jacinda Benton Referring Provider [phone] Dr. Kai Jacobson Attending Provider [phone]([phone] MARIANA Davenport Attending Provider Dr. Jacinda Benton Primary Care Provider [phone] Jacinda Benton Referring Provider Dr. Jacinda Benton Primary Care Provider [phone] Jacinda Benton Referring Provider MARIANA Davenport Attending Provider Dr. Jacinda Benton Primary Care Provider [phone] Jacinda Benton Referring Provider [phone]([facility])[phone] Dr. Kai Jacobson Attending Provider MARIANA Davenport Attending Provider Dr. Orlando Jacob Attending Provider Dr. Jacinda Benton Primary Care Provider [phone] Jacinda Benton Referring Provider Dr. Kai Jacobson Attending Provider MARIANA Davenport Attending Provider Dr. Orlando Jacob Attending Provider [phone] Jacinda Benton Primary Care Provider Dr. Jacinda Benton Referring Provider Dr. Kai Jacobson Attending Provider Dr. Jacinda Benton Primary Care Provider Dr. Orlando Jacob Attending Provider Dr. Jacinda Benton Primary Care Provider Dr. Jacinda Benton Referring Provider Dr. Kai Jacobson Attending Provider Dr. Gilles Jasso Attending Provider Dr. Jacinda Benton Primary Care Provider Dr. Jacinda Benton Referring Provider Dr. Kai Jacobson Attending Provider Jacinda Benton Primary Care Provider Dr. Jacinda Benton Primary Care Provider Dr. Jacinda Benton Referring Provider Dr. Gilles Jasso Attending Provider Dr. Orlando Jacob Attending Provider Dr. Jacinda Benton Primary Care Provider Dr. Jacinda Benton Referring Provider Katia Chi Attending Provider Unavailable Dr. Jacinda Benton Primary Care Provider [phone] Jacinda Benton Referring Provider Katia Chi Attending Provider Unavailable Dr. Kai Jacobson Attending Provider Lexa PEÑA, PA Betsey Cheema Attending Provider Dr. Michele Kebede Emergency Provider Dr. Sommer Resendiz Admit Provider Dr. Sommer Resendiz Other Provider Dr. Hi Garcia Attending Provider Dr. Hi Garcia Other Provider Dr. Sachin Murillo Attending Provider Dr. Sachin Murillo Other Provider Dr. Dangelo Gallardo Attending Provider Dr. Jacinda Benton Primary Care Provider Dr. Jacinda Benton Referring Provider Katia Chi Attending Provider Unavailable Dr. Kai Jacobson Attending Provider Lexa PEÑA, PA Betsey Cheema Attending Provider Dr. Michele Kebede Emergency Provider Dr. Sommer Resendiz Admit Provider Dr. Sommer Resnediz Other Provider Dr. Hi Garcia Attending Provider [...] Other Provider Dr. Sarkis Brown Other Provider [phone] Simon Tellez Other Provider Dr. Michele Rascon Other Provider [phone] Kirsten Azevedo Other Provider Dr. Joseph Desai Other Provider [phone] Samina Mortensen Other Provider Unavailable MD Keyona Davidson Other Provider Unavailable Dr. Daniel Edmonds Other Provider [phone] Dr. Isaias Scherer Other Provider Dr. Jorge Hurtado Attending Provider Dr. Jorge Hurtado Other Provider Dr. Brandon Gaming Other Provider Dr. Anita Amezcua Other Provider Dr. Pamela Pan Other Provider Unavailable Dr. Go Alejo Other Provider Dr. Jesus Alfonso Other Provider Dr. Kehinde Inman Other Provider Dr. Mendez Oviedo Other Provider MD Deepika Graham Other Provider MS Maurilio Garland Other Provider MD Phil Terry Other Provider MD SARI MENA Other Provider MD Jose Santos Other Provider MD Rhiannon Farris Other Provider ERICKA FOX, TYE Santos Attending Unavailable Dr. Jacinda Benton Primary Care Provider Dr. Jacinda Benton Referring Provider [phone] Sachin Murillo Referring Provider Dr. Jacinda Benton Primary Care Provider Dr. Jacinda Benton Referring Provider Dr. Kai Jacobson Attending Provider Lexa PA, [...] Provider Dr. Kirsten Azevedo Other Provider Dr. Jsoeph Desai Other Provider Dr. Samina Mortensen Other Provider Unavailable MD Keyona Davidson Other Provider Unavailable Dr. Sachin Murillo Referring Provider Dr. Daniel Edmonds Other Provider Dr. Isaias Scherer Other Provider Dr. Jorge Hurtado Attending Provider Dr. Jorge Hurtado Other Provider Dr. Brandon Gaming Other Provider Dr. Anita Amezcua Other Provider Dr. Pamela Pan Other Provider Unavailable Dr. Go Alejo Other Provider [phone] Jesus Alfonso Other Provider Dr. Kehinde Inman Other Provider Dr. Mendez Oviedo Other Provider MD Deepika Graham Other Provider MS Maurilio Garland Other Provider MD Phil Terry Other Provider MD SARI MENA Other Provider MD Jose Santos Other Provider MD Rhiannon Farris Other Provider Dr. Jeffy Willoughby Emergency Provider Dr. Jacinda Benton Primary Care Provider Dr. Jacinda Benton Referring Provider Glucose [Mass/Vol] 80 mg/dL 74-106 [facility] Neutrophils (d) [#/Vol] 3.4 10*3/uL 2.0-7.7 [facility] Neutrophils/100 WBC (Bld) 70.4 % 47-70 [facility] Potassium [Moles/Vol] 3.9 mmol/L 3.5-5.1 [facility] Protein [Mass/Vol] 6.9 g/dL 6.4-8.2 [facility] Sodium [Moles/Vol] 130 mmol/L 136-145 [facility] WBC (Bld) [#/Vol] 4.9 10*3/uL 4.4-11.0 [facility] Bilirubin Test strip Ql (U)O rdered By: Michele Kebede on 11-15-2023 Bilirubin Ql (U) Negative Negative [facility] Blood erythrocytes count (nu mber/volume)Ordered By: Michele Kebede on 11-15-2023 RBC (Bld) [#/Vol] 4.74 10*6/uL 4.2-5.4 [facility] Blood hemoglobin measurement (mass/volume)Ordered By: Michele Kebede on 11-15-2023 Hemoglobin (Bld) [Mass/Vol] 13.7 g/dL 12.0-15.0 [facility] Blood lymphocytes/100 leukoc ytesOrdered By: Michele Kebede on 11-15-2023 Lymphocytes/100 WBC (Bld) 14.3 % 19-41 [facility] Blood monocytes/100 leukocyt esOrdered By: Michele Kebede on 11-15-2023 Monocytes/100 WBC (Bld) 14.5 % 0-10 [facility] Blood platelet mean volumeOr dered By: Michele Kebede on 11-15-2023 Platelet mean volume (Bld) [Entitic vol] 10.1 fL 6.2-12.0 [facility] Calcium oxalate crystals det ection in urine sediment by light microscopyOrdered By: Michele Kebede on 11-15-2023 Calcium oxalate crystals LM Ql (Urine sed) RARE /hpf [facility] Determination of erythrocyte mean corpuscular volume (MCV)Ordered By: Michele Kebede on 11-15-2023 MCV (RBC) [Entitic vol] 86.3 fL 81-99 [facility] Hematocrit Auto (Bld) [Volum e fraction]Ordered By: Michele Kebede on 11-15-2023 Hematocrit (Bld) [Volume fraction] 40.9 % 37-47 [facility] Ketones Test strip Ql (U)Ord ered By: Michele Kebede on 11-15-2023 Ketones Ql (U) 5 mg/dl Negative [facility] Laboratory - Chemistry and C hemistry - challengeOrdered By: Michele Kebede on 11-15-2023 ALP [Catalytic activity/Vol] 104 U/L 45-117 [facility] ALT [Catalytic activity/Vol] 27 U/L 13-56 [facility] CO2 [Moles/Vol] 21.0 mmol/L 21.0-32.0 [facility] Globulin (S) [Mass/Vol] 3.6 g/dL 2.2-4.2 [facility] Lipase [Catalytic activity/Vol] 60 U/L 13-75 [facility] Comment on above: Please note:LIPASE r evised reference range effective 23. New Lipase methodology. Expected to produce lower values than the previous assay method. NEW Reference Range: 13 - 75 U/L Urea nitrogen/Creatinine [Mass ratio] 25.5 mg/mg 10-20 [facility] Laboratory - Hematology and Cell countsOrdered By: Michele Kebede on 11-15-2023 Erythrocyte distribution width (RBC) [Entitic vol] 46.6 fL 35.1-43.9 [facility] Erythrocyte distribution width (RBC) [Ratio] 14.6 % 11.6-14.6 [facility] Immature granulocytes/100 WBC (Bld) 0.600 % 0.0-0.9 [facility] Comment on above: IG% - Immature Granu locytes (promyelocytes, myelocytes and metamyelocytes) > 1% indicates that a LEFT SHIFT is Present. MCH (RBC) [Entitic mass] 28.9 pg 27.0-32.0 [facility] Nucleated RBC/100 WBC (Bld) [Ratio] 0 % 0-5 [facility] Laboratory - Microbiology an d Antimicrobial susceptibilityOrdered By: Michele Kebede on 11-15-2023 SARS-CoV-2 (COVID-19) RNA JAYDON+probe Ql (Unsp spec) Influenzae A [facility] MCHC Auto (RBC) [Mass/Vol]Or dered By: Michele Kebede on 11-15-2023 MCHC (RBC) [Mass/Vol] 33.5 g/dL 32-36 [facility] Mucus LM Ql (Urine sed)Order ed By: Michele Kebede on 11-15-2023 Mucus Ql (Urine sed) 0 SEEN /hpf [facility] Nitrite Test strip Ql (U)Ord ered By: Michele Kebede on 11-15-2023 Nitrite Ql (U) Negative Negative [facility] No Panel InformationOrdered By: Michele Kebede on 11-15-2023 Influenzae A [facility] Influenzae A [facility] Estimated Creatinine Clearance Calc 19.03 ml/min [facility] Estimated GFR (MDRD) Amer 24 mL/min >60 [facility] Comment on above: GFR Calc Estimated GFR (MDRD) Non-Af Amer 20 mL/min >60 [facility] Comment on above: Non- GFR Calc 60 U/L 13-75 [facility] Platelets bldOrdered By: Randee Kebede on 11-15-2023 Platelets (Bld) [#/Vol] 164 10*3/uL 150-450 [facility] Protein Test strip Ql (U)Ord ered By: Michele Kebede on 11-15-2023 Protein Ql (U) 15 mg/dl Negative [facility] Serum or plasma albumin stefania urement (mass/volume)Ordered By: Michele Kebede on 11-15-2023 Albumin [Mass/Vol] 3.3 g/dL 3.2-5.0 [facility] Serum or plasma albumin/glob ulin mass ratioOrdered By: Michele Kebede on 11-15-2023 Albumin/Globulin [Mass ratio] 0.9 {ratio} 0.9-2.4 [facility] Serum or plasma calcium stefania urement (mass/volume)Ordered By: Michele Kebede on 11-15-2023 Calcium [Mass/Vol] 8.1 mg/dL 8.5-10.1 [facility] Serum or plasma creatinine m easurement (mass/volume)Ordered By: Michele Kebede on 11-15-2023 Creatinine [Mass/Vol] 2.51 mg/dL 0.55-1.02 [facility] Comment on above: The validity of the calculated GFR & GFRAA in patients over 70 years has not been determined. Clinical correlation is essential. Serum or plasma urea nitroge n measurement (mass/volume)Ordered By: Michele Kebede on 11-15-2023 Urea nitrogen [Mass/Vol] 64 mg/dL 7-18 [facility] Serum procalcitonin measurem entOrdered By: Sommer Resendiz on 11-15-2023 Procalcitonin [Mass/Vol] 0.24 ng/mL 0.00-0.09 [facility] Comment on above: A procalcitonin (PCT ) [...] Ql (Urine sed) 5-10 SEEN /hpf 5-10 [facility] Thin prep Papanicolaou smear with manual screeningOrdered By: Michele Kebede on 11-15-2023 Thin prep Papanicolaou smear with manual screening 34 U/L 15-37 [facility] Thin prep Papanicolaou smear with manual screening 12 5-15 [facility] Urine blood detectionOrdered By: Michele Kebede on 11-15-2023 RBC Ql (U) 25 /ul Negative [facility] RBC Ql (U) 0-5 SEEN /hpf 0-5 [facility] Urine clarityOrdered By: Randee Kebede on 11-15-2023 Clarity (U) Sl. Cloudy Clear [facility] Urine color determinationOrd ered By: Michele eKbede on 11-15-2023 Color (U) Yellow Yellow [facility] Urine glucose detectionOrder ed By: Michele Kebede on 11-15-2023 Glucose Ql (U) Normal mg/dl Normal [facility] Urine leukocyte esterase det ection by dipstickOrdered By: Michele Kebede on 11-15-2023 Leukocyte esterase Test strip Ql (U) 100 /ul Negative [facility] Urine pHOrdered By: Michele gutierrez on 11-15-2023 pH (U) 5.0 [pH] 5.0 - 8.0 [facility] Urine sediment bacteria coun t by microscopy (number/high power field)Ordered By: Michele Kebede on 11-15-2023 Bacteria LM.HPF (Urine sed) [#/Area] RARE /hpf None Seen [facility] Urine specific gravity measu rementOrdered By: Michele Kebede on 11-15-2023 Specific gravity (U) [Rel density] 1.015 1.002-1.03 0 [facility] Urobilinogen Auto test strip Ql (U)Ordered By: Michele Kebede on 11-15-2023 Urobilinogen Ql (U) Normal mg/dl Normal [facility] IR ARTERIOGRAM EXTREMITY HUNG ATERAL LOWERon 11-13-2023 IR ARTERIOGRAM EXTREMITY BILATERAL LOWER ORIGINAL Images acquired, not reported on this accession number. Normal [facility] ([place]) .Auto Diffon 10-26-2023 Basophil, Absolute 0.1 10 3/mcL Normal 0.0-0.3 [facility] ([place]) Comment on above: Performed By: #### A KAILA, ADIFF, GFR, BMP, CBC #### [address] [address] Basophils/100 WBC (Bld) 0.8 % Normal 0.0-2.5 [facility] ([place]) Comment on above: Performed By: #### A KAILA, ADIFF, GFR, BMP, CBC #### [address] [address] Eosinophil, Absolute 0.1 10 3/mcL Normal 0.0-0.7 [facility] ([place]) Comment on above: Performed By: #### A KAILA, ADIFF, GFR, BMP, CBC #### [address] [address] Eosinophils/100 WBC (Bld) 1.5 % Normal 0.0-6.0 [facility] ([place]) Comment on above: Performed By: #### A KAILA, ADIFF, GFR, BMP, CBC #### [address] [address] Lymphocyte, Absolute 1.3 10 3/mcL Normal 0.9-4.3 [facility] ([place]) Comment on above: Performed By: #### A KAILA, ADIFF, GFR, BMP, CBC #### [address] [address] Lymphocytes/100 WBC (Bld) 16.6 % Low 20.0-40.0 [facility] ([place]) Comment on above: Performed By: #### A KAILA, ADIFF, GFR, BMP, CBC #### [address] [address] Monocyte, Absolute 0.6 10 3/mcL Normal 0.1-1.4 [facility] ([place]) Comment on above: Performed By: #### A KAILA, ADIFF, GFR, BMP, CBC #### [address] [address] Monocytes/100 WBC (Bld) 7.8 % Normal 2.0-13.0 [facility] ([place]) Comment on above: Performed By: #### A KAILA, ADIFF, GFR, BMP, CBC #### [address] [address] Neutrophils/100 WBC (Bld) 73.3 % Normal 50.0-75.0 [facility] ([place]) Comment on above: Performed By: #### A KAILA, ADIFF, GFR, BMP, CBC #### [address] [address] .GFRon 10-26-2023 GFR 53 ml/min/1.73sqm Normal [facility] ([place]) Comment on above: Result Comment: GFR Population [...] A KAILA, ADIFF, GFR, BMP, CBC #### [address] [address] GFR Non- 44 ml/min/1.73sqm Normal [facility] ([place]) Comment on above: Result Comment: GFR Population [...] A KAILA, ADIFF, GFR, BMP, CBC #### [address] [address] .NEUABSon 10-26-2023 Neutrophil, Absolute 5.7 10 3/mcL Normal 2.3-8.1 [facility] ([place]) Comment on above: Performed By: #### A KAILA, ADIFF, GFR, BMP, CBC #### [address] [address] BMPon 10-26-2023 BUN/Creatinine Ratio 25.6 ratio High 10.0-22.0 [facility] ([place]) Comment on above: Order Comment: hemol yzed talk to willian Performed By: #### A KAILA, ADIFF, GFR, BMP, CBC #### [address] [address] Calcium [Mass/Vol] 7.7 mg/dL Low 8.7-10.4 [facility] ([place]) Comment on above: Order Comment: hemol yzed talk to willian Performed By: #### A KAILA, ADIFF, GFR, BMP, CBC #### [address] [address] Chloride [Moles/Vol] 114 mmol/L High 98-110 [facility] ([place]) Comment on above: Order Comment: hemol yzed talk to willian Performed By: #### A KAILA, ADIFF, GFR, BMP, CBC #### [address] [address] CO2 [Moles/Vol] 29 mmol/L Normal 22-32 [facility] ([place]) Comment on above: Order Comment: hemol yzed talk to willian Performed By: #### A KAILA, ADIFF, GFR, BMP, CBC #### [address] [address] Creatinine [Mass/Vol] 1.21 mg/dL High 0.50-1.20 [facility] ([place]) Comment on above: Order Comment: hemol yzed talk to willian Performed By: #### A KAILA, ADIFF, GFR, BMP, CBC #### [address] [address] Electrolyte Balance -1.0 mEq/L Low 4.0-15.0 [facility] ([place]) Comment on above: Order Comment: hemol yzed talk to willian Performed By: #### A KAILA, ADIFF, GFR, BMP, CBC #### [address] [address] Potassium [Moles/Vol] 3.9 mmol/L Normal 3.5-5.0 [facility] ([place]) Comment on above: Order Comment: hemol yzed talk to willian Performed By: #### A KAILA, ADIFF, GFR, BMP, CBC #### [address] [address] Sodium [Moles/Vol] 142 mmol/L Normal 136-145 [facility] ([place]) Comment on above: Order Comment: hemol yzed talk to willian Performed By: #### A KAILA, ADIFF, GFR, BMP, CBC #### [place] [address] Glucose [Mass/Vol] 78 mg/dL Low 82-115 [facility] ([place]) Comment on above: Order Comment: hemol yzed talk to willian Performed By: #### A KAILA, ADIFF, GFR, BMP, CBC #### [place] [address] Urea nitrogen [Mass/Vol] 31.0 mg/dL High 8.0-22.0 [facility] ([place]) Comment on above: Order Comment: hemol yzed talk to willian Performed By: #### A KAILA, ADIFF, GFR, BMP, CBC #### [place] [address] CBCon 10-26-2023 Erythrocyte distribution width (RBC) [Ratio] 14.9 % Normal 11.5-15.5 [facility] ([place]) Comment on above: Performed By: #### A KAILA, ADIFF, GFR, BMP, CBC #### [place] [address] Hematocrit (Bld) [Volume fraction] 40.0 % Normal 34.0-46.0 [facility] ([place]) Comment on above: Performed By: #### A KAILA, ADIFF, GFR, BMP, CBC #### [place] [address] Hgb 13.7 G/dL Normal 12.0-16.0 [facility] ([place]) Comment on above: Performed By: #### A KAILA, ADIFF, GFR, BMP, CBC #### [place] [address] MCH (RBC) [Entitic mass] 29.9 pg Normal 27.0-33.0 [facility] ([place]) Comment on above: Performed By: #### A KAILA, ADIFF, GFR, BMP, CBC #### [place] [address] MCHC 34.2 G/dL Normal 32.0-36.0 [facility] ([place]) Comment on above: Performed By: #### A KAILA, ADIFF, GFR, BMP, CBC #### [place] [address] MCV (RBC) [Entitic vol] 87.4 fL Normal 80.0-99.0 [facility] ([place]) Comment on above: Performed By: #### A KAILA, ADIFF, GFR, BMP, CBC #### [place] [address] Platelet 188 10 3/mcL Normal 150-450 [facility] ([place]) Comment on above: Performed By: #### A KAILA, ADIFF, GFR, BMP, CBC #### [place] [address] Platelet mean volume (Bld) [Entitic vol] 7.5 fL Normal 6.6-10.5 [facility] ([place]) Comment on above: Performed By: #### A KAILA, ADIFF, GFR, BMP, CBC #### [place] [address] RBC 4.57 10 6/mcL Normal 4.10-5.30 [facility] ([place]) Comment on above: Performed By: #### A KAILA, ADIFF, GFR, BMP, CBC #### [place] [address] WBC 7.8 10 3/mcL Normal 4.5-10.8 [facility] ([place]) Comment on above: Performed By: #### A KAILA, ADIFF, GFR, BMP, CBC #### [place] [address] * Body fluid crystals type b y light microscopyOrdered By: Kai Jacobson on 10-22-2023 Crystals LM Nom (Body fld) See PATH REV [facility] Comment on above: CRYSTAL RESULT IS PRELIMINARY. SEE PATH REVIEW FOR FINAL REPORT. Review by pathologistOrdered By: Kai Jacobson on 10-22-2023 Pathologist review Jimy (Unsp spec) [Interp] Reviewed [facility] Comment on above: Previous reported re sult: Will follow Edited by: PELON on 10/23/23:1346Negative for Mann Thomas M.D. 10/23/23 AMENDED REPORT 10/23/23 1346 PATH REV previously reported as: Will follow Specimen source identificati on of body fluidOrdered By: Kai Jacobson on 10-22-2023 Specimen source Nom (Body fld) SYNOVIAL [facility] Absolute lymphocyte countOrd ered By: ED PROVIDER on 10-05-2023 Lymphocytes Auto (Unsp spec) [#/Vol] 1.62 10*3/uL 0.83-4.51 [facility] Basophil percentageOrdered B y: ED PROVIDER on 10-05-2023 Basophil percentage 108 mg/dL 74-106 [facility] Basophil percentage 142 mmol/L 136-145 [facility] Basophil percentage 4.3 mmol/L 3.5-5.1 [facility] Basophil percentage 110 mmol/L 98-107 [facility] Basophils (Bld) [#/Vol] 7.2 10*3/uL 4.4-11.0 [facility] Basophils (Bld) [#/Vol] 4.8 10*3/uL 2.0-7.7 [facility] Basophils/100 WBC (Bld) 0.7 % 0-1 [facility] Basophils/100 WBC (Bld) 66.3 % 47-70 [facility] Basophils/100 WBC (Bld) 2.9 % 0-5 [facility] Chloride [Moles/Vol] 110 mmol/L 98-107 [facility] Eosinophils/100 WBC (Bld) 2.9 % 0-5 [facility] Glucose [Mass/Vol] 108 mg/dL 74-106 [facility] Comment on above: Fasting Glucose resu lt from 100 to 125 mg/dL suggests IMPAIRED HOMEOSTASIS per A.D.A. criteria. Neutrophils (Bld) [#/Vol] 4.8 10*3/uL 2.0-7.7 [facility] Neutrophils/100 WBC (Bld) 66.3 % 47-70 [facility] Potassium [Moles/Vol] 4.3 mmol/L 3.5-5.1 [facility] Sodium [Moles/Vol] 142 mmol/L 136-145 [facility] WBC (Bld) [#/Vol] 7.2 10*3/uL 4.4-11.0 [facility] Blood erythrocytes count (nu mber/volume)Ordered By: ED PROVIDER on 10-05-2023 RBC (Bld) [#/Vol] 5.19 10*6/uL 4.2-5.4 [facility] Blood hemoglobin measurement (mass/volume)Ordered By: ED PROVIDER on 10-05-2023 Hemoglobin (Bld) [Mass/Vol] 14.9 g/dL 12.0-15.0 [facility] Blood lymphocytes/100 leukoc ytesOrdered By: ED PROVIDER on 10-05-2023 Lymphocytes/100 WBC (Bld) 22.4 % 19-41 [facility] Blood monocytes/100 leukocyt esOrdered By: ED PROVIDER on 10-05-2023 Monocytes/100 WBC (Bld) 7.3 % 0-10 [facility] Blood platelet mean volumeOr dered By: ED PROVIDER on 10-05-2023 Platelet mean volume (Bld) [Entitic vol] 9.6 fL 6.2-12.0 [facility] Determination of erythrocyte mean corpuscular volume (MCV)Ordered By: ED PROVIDER on 10-05-2023 MCV (RBC) [Entitic vol] 88.8 fL 81-99 [facility] Hematocrit Auto (Bld) [Volum e fraction]Ordered By: ED PROVIDER on 10-05-2023 Hematocrit (Bld) [Volume fraction] 46.1 % 37-47 [facility] Laboratory - Chemistry and C hemistry - challengeOrdered By: Yasmani Haynes on 10-05-2023 Magnesium [Mass/Vol] 2.0 mg/dL 1.6-2.6 [facility] Laboratory - Chemistry and C hemistry - challengeOrdered By: ED PROVIDER on 10-05-2023 CO2 [Moles/Vol] 27.0 mmol/L 21.0-32.0 [facility] Urea nitrogen/Creatinine [Mass ratio] 20.7 mg/mg 10-20 [facility] Laboratory - Hematology and Cell countsOrdered By: ED PROVIDER on 10-05-2023 Erythrocyte distribution width (RBC) [Entitic vol] 45.3 fL 35.1-43.9 [facility] Erythrocyte distribution width (RBC) [Ratio] 14.0 % 11.6-14.6 [facility] Immature granulocytes/100 WBC (Bld) 0.400 % 0.0-0.9 [facility] Comment on above: IG% - Immature Granu locytes (promyelocytes, myelocytes and metamyelocytes) > 1% indicates that a LEFT SHIFT is Present. MCH (RBC) [Entitic mass] 28.7 pg 27.0-32.0 [facility] Nucleated RBC/100 WBC (Bld) [Ratio] 0 % 0-5 [facility] [facility] MCHC Auto (RBC) [Mass/Vol]Or dered By: ED PROVIDER on 10-05-2023 MCHC (RBC) [Mass/Vol] 32.3 g/dL 32-36 [facility] No Panel InformationOrdered By: ED PROVIDER on 10-05-2023 Troponin I High Sensitivity 8 pg/mL 3.0-54.0 [facility] Comment on above: Please Note: New Kim t Units and Gender Specific Reference Ranges. For more information see Policy Stat Procedure [place] High Sensitivity Troponin (TNIH) and attachments. 8 pg/mL 3.0-54.0 [facility] Estimated Creatinine Clearance Calc 43.04 ml/min [facility] Estimated GFR (MDRD) Amer 63 mL/min >60 [facility] Comment on above: GFR Calc Estimated GFR (MDRD) Non-Af Amer 52 mL/min >60 [facility] Comment on above: Non- GFR Calc 28.7 pg 27.0-32.0 [facility] 14.0 % 11.6-14.6 [facility] 45.3 fl 35.1-43.9 [facility] 0.400 % 0.0-0.9 [facility] 0 % 0-5 [facility] 52 mL/min >60 [facility] 63 mL/min >60 [facility] 43.04 ml/min [facility] 20.7 RATIO 10-20 [facility] 27.0 mmol/L 21.0-32.0 [facility] No Panel InformationOrdered By: Yasmani Haynes on 10-05-2023 2.0 mg/dL 1.6-2.6 [facility] Platelets bldOrdered By: ED PROVIDER on 10-05-2023 Platelets (Bld) [#/Vol] 206 10*3/uL 150-450 [facility] Serum or plasma calcium stefania urement (mass/volume)Ordered By: ED PROVIDER on 10-05-2023 Calcium [Mass/Vol] 9.5 mg/dL 8.5-10.1 [facility] Serum or plasma creatinine m easurement (mass/volume)Ordered By: ED PROVIDER on 10-05-2023 Creatinine [Mass/Vol] 1.11 mg/dL 0.55-1.02 [facility] Comment on above: The validity of the calculated GFR & GFRAA in patients over 70 years has not been determined. Clinical correlation is essential. Serum or plasma urea nitroge n measurement (mass/volume)Ordered By: ED PROVIDER on 10-05-2023 Urea nitrogen [Mass/Vol] 23 mg/dL 7-18 [facility] Thin prep Papanicolaou smear with manual screeningOrdered By: ED PROVIDER on 10-05-2023 Thin prep Papanicolaou smear with manual screening 5 5-15 [facility] Absolute lymphocyte countOrd ered By: Jacinda Benton on 08-21-2023 Lymphocytes Auto (Unsp spec) [#/Vol] 1.45 10*3/uL 0.83-4.51 [facility] Basophil percentageOrdered B y: Jacinda Benton on 08-21-2023 Basophil percentage 86 mg/dL 74-106 [facility] Basophil percentage 7.3 g/dL 6.4-8.2 [facility] Basophil percentage 0.30 mg/dL 0.20-1.00 [facility] Basophil percentage 139 mmol/L 136-145 [facility] Basophil percentage 4.7 mmol/L 3.5-5.1 [facility] Basophil percentage 108 mmol/L 98-107 [facility] Basophils (Bld) [#/Vol] 7.3 10*3/uL 4.4-11.0 [facility] Basophils (Bld) [#/Vol] 5.0 10*3/uL 2.0-7.7 [facility] Basophils/100 WBC (Bld) 0.7 % 0-1 [facility] Basophils/100 WBC (Bld) 68.4 % 47-70 [facility] Basophils/100 WBC (Bld) 3.1 % 0-5 [facility] Bilirubin [Mass/Vol] 0.30 mg/dL 0.20-1.00 [facility] Comment on above: For patients on eltr ombopag therapy, use of Dimension [place] TBIL is not recommended. Chloride [Moles/Vol] 108 mmol/L 98-107 [facility] Eosinophils/100 WBC (Bld) 3.1 % 0-5 [facility] Glucose [Mass/Vol] 86 mg/dL 74-106 [facility] Neutrophils (Bld) [#/Vol] 5.0 10*3/uL 2.0-7.7 [facility] Neutrophils/100 WBC (Bld) 68.4 % 47-70 [facility] Potassium [Moles/Vol] 4.7 mmol/L 3.5-5.1 [facility] Protein [Mass/Vol] 7.3 g/dL 6.4-8.2 [facility] Sodium [Moles/Vol] 139 mmol/L 136-145 [facility] WBC (Bld) [#/Vol] 7.3 10*3/uL 4.4-11.0 [facility] Blood erythrocytes count (nu mber/volume)Ordered By: Jacinda Benton on 08-21-2023 RBC (Bld) [#/Vol] 4.99 10*6/uL 4.2-5.4 [facility] Blood hemoglobin measurement (mass/volume)Ordered By: Jacinda Benton on 08-21-2023 Hemoglobin (Bld) [Mass/Vol] 14.5 g/dL 12.0-15.0 [facility] Blood lymphocytes/100 leukoc ytesOrdered By: Jacinda Benton on 08-21-2023 Lymphocytes/100 WBC (Bld) 19.8 % 19-41 [facility] Blood monocytes/100 leukocyt esOrdered By: Jacinda Benton on 08-21-2023 Monocytes/100 WBC (Bld) 7.5 % 0-10 [facility] Blood platelet mean volumeOr dered By: Jacinda Benton on 08-21-2023 Platelet mean volume (Bld) [Entitic vol] 10.7 fL 6.2-12.0 [facility] Determination of erythrocyte mean corpuscular volume (MCV)Ordered By: Jacinda Benton on 08-21-2023 MCV (RBC) [Entitic vol] 91.6 fL 81-99 [facility] Hematocrit Auto (Bld) [Volum e fraction]Ordered By: Jacinda Benton on 08-21-2023 Hematocrit (Bld) [Volume fraction] 45.7 % 37-47 [facility] Laboratory - Chemistry and C hemistry - challengeOrdered By: Jacinda Benton on 08-21-2023 ALP [Catalytic activity/Vol] 122 U/L 45-117 [facility] ALT [Catalytic activity/Vol] 26 U/L 13-56 [facility] CO2 [Moles/Vol] 28.0 mmol/L 21.0-32.0 [facility] Globulin (S) [Mass/Vol] 3.6 g/dL 2.2-4.2 [facility] Urea nitrogen/Creatinine [Mass ratio] 22.2 mg/mg 10-20 [facility] Laboratory - Hematology and Cell countsOrdered By: Jacinda Benton on 08-21-2023 Erythrocyte distribution width (RBC) [Entitic vol] 46.4 fL 35.1-43.9 [facility] Erythrocyte distribution width (RBC) [Ratio] 13.8 % 11.6-14.6 [facility] Immature granulocytes/100 WBC (Bld) 0.500 % 0.0-0.9 [facility] Comment on above: IG% - Immature Granu locytes (promyelocytes, myelocytes and metamyelocytes) > 1% indicates that a LEFT SHIFT is Present. MCH (RBC) [Entitic mass] 29.1 pg 27.0-32.0 [facility] Nucleated RBC/100 WBC (Bld) [Ratio] 0 % 0-5 [facility] MCHC Auto (RBC) [Mass/Vol]Or dered By: Jacinda Benton on 08-21-2023 MCHC (RBC) [Mass/Vol] 31.7 g/dL 32-36 [facility] No Panel InformationOrdered By: Jacinda Benton on 08-21-2023 Estimated GFR (MDRD) Amer 65 mL/min >60 [facility] Comment on above: GFR Calc Estimated GFR (MDRD) Non-Af Amer 53 mL/min >60 [facility] Comment on above: Non- GFR Calc Thyroid Stimulating Hormone (TSH) 2.00 uIU/mL 0.358-3.74 [facility] 29.1 pg 27.0-32.0 [facility] 13.8 % 11.6-14.6 [facility] 46.4 fl 35.1-43.9 [facility] 0.500 % 0.0-0.9 [facility] 0 % 0-5 [facility] 53 mL/min >60 [facility] 65 mL/min >60 [facility] 22.2 RATIO 10-20 [facility] 3.6 g/dL 2.2-4.2 [facility] 122 U/L 45-117 [facility] 26 U/L 13-56 [facility] 28.0 mmol/L 21.0-32.0 [facility] 2.00 uIU/mL 0.358-3.74 [facility] Platelets bldOrdered By: Nila Benton on 08-21-2023 Platelets (Bld) [#/Vol] 184 10*3/uL 150-450 [facility] Serum or plasma albumin stefania urement (mass/volume)Ordered By: Jacinda Benton on 08-21-2023 Albumin [Mass/Vol] 3.7 g/dL 3.2-5.0 [facility] Serum or plasma albumin/glob ulin mass ratioOrdered By: Jacinda Benton on 08-21-2023 Albumin/Globulin [Mass ratio] 1.0 {ratio} 0.9-2.4 [facility] Serum or plasma calcium stefania urement (mass/volume)Ordered By: Jacinda Benton on 08-21-2023 Calcium [Mass/Vol] 9.2 mg/dL 8.5-10.1 [facility] Serum or plasma creatinine m easurement (mass/volume)Ordered By: Jacinda Benton on 08-21-2023 Creatinine [Mass/Vol] 1.08 mg/dL 0.55-1.02 [facility] Comment on above: The validity of the calculated GFR & GFRAA in patients over 70 years has not been determined. Clinical correlation is essential. Serum or plasma urea nitroge n measurement (mass/volume)Ordered By: Jacinda Benton on 08-21-2023 Urea nitrogen [Mass/Vol] 24 mg/dL 7-18 [facility] Thin prep Papanicolaou smear with manual screeningOrdered By: Jacinda Benton on 08-21-2023 Thin prep Papanicolaou smear with manual screening 18 U/L 15-37 [facility] Thin prep Papanicolaou smear with manual screening 3 5-15 [facility] Basophil percentageOrdered B y: Dr. Benton on 04-26-2023 Bilirubin [Mass/Vol] 0.30 mg/dL 0.20-1.00 [facility] Comment on above: For patients on eltr ombopag therapy, use of Dimension [place] TBIL is not recommended. Chloride [Moles/Vol] 109 mmol/L 98-107 [facility] Glucose [Mass/Vol] 95 mg/dL 74-106 [facility] Potassium [Moles/Vol] 4.6 mmol/L 3.5-5.1 [facility] Protein [Mass/Vol] 7.1 g/dL 6.4-8.2 [facility] Sodium [Moles/Vol] 138 mmol/L 136-145 [facility] INR in Blood by Coagulation assayOrdered By: Dr. Benton on 04-26-2023 INR Coag (Bld) [Relative time] 0.9 {INR} [facility] Laboratory - Chemistry and C hemistry - challengeOrdered By: Dr. Benton on 04-26-2023 ALP [Catalytic activity/Vol] 109 U/L 45-117 [facility] ALT [Catalytic activity/Vol] 26 U/L 13-56 [facility] CO2 [Moles/Vol] 27.0 mmol/L 21.0-32.0 [facility] Globulin (S) [Mass/Vol] 3.6 g/dL 2.2-4.2 [facility] Urea nitrogen/Creatinine [Mass ratio] 26.9 mg/mg 10-20 [facility] Laboratory - CoagulationOrde red By: Dr. Benton on 04-26-2023 PT Coag (PPP) [Time] 12.5 s 11.7-14.9 [facility] No Panel InformationOrdered By: Dr. Benton on 04-26-2023 Estimated GFR (MDRD) Amer 73 mL/min >60 [facility] Comment on above: GFR Calc Estimated GFR (MDRD) Non-Af Amer 61 mL/min >60 [facility] Comment on above: Non- GFR Calc Serum or plasma albumin stefania urement (mass/volume)Ordered By: Dr. Benton on 04-26-2023 Albumin [Mass/Vol] 3.5 g/dL 3.2-5.0 [facility] Serum or plasma albumin/glob ulin mass ratioOrdered By: Dr. Benton on 04-26-2023 Albumin/Globulin [Mass ratio] 1.0 {ratio} 0.9-2.4 [facility] Serum or plasma calcium stefania urement (mass/volume)Ordered By: Dr. Benton on 04-26-2023 Calcium [Mass/Vol] 9.5 mg/dL 8.5-10.1 [facility] Serum or plasma creatinine m easurement (mass/volume)Ordered By: Dr. Benton on 04-26-2023 Creatinine [Mass/Vol] 0.97 mg/dL 0.55-1.02 [facility] Comment on above: The validity of the calculated GFR & GFRAA in patients over 70 years has not been determined. Clinical correlation is essential. Serum or plasma transthyreti n measurement (mass/volume)Ordered By: Dr. Benton on 04-26-2023 Prealbumin [Mass/Vol] 19.6 mg/dL 20.0-40.0 [facility] Serum or plasma urea nitroge n measurement (mass/volume)Ordered By: Dr. Benton on 04-26-2023 Urea nitrogen [Mass/Vol] 26 mg/dL 7-18 [facility] Thin prep Papanicolaou smear with manual screeningOrdered By: Dr. Benton on 04-26-2023 Thin prep Papanicolaou smear with manual screening 14 U/L 15-37 [facility] Thin prep Papanicolaou smear with manual screening 2 5-15 [facility] Absolute lymphocyte countOrd ered By: Dr. Garcia on 04-08-2023 Lymphocytes Auto (Unsp spec) [#/Vol] 1.45 10*3/uL 0.83-4.51 [facility] Basophil percentageOrdered B y: Dr. Garcia on 04-08-2023 Basophils/100 WBC (Bld) 0.7 % 0-1 [facility] Chloride [Moles/Vol] 105 mmol/L 98-107 [facility] Eosinophils/100 WBC (Bld) 1.5 % 0-5 [facility] Glucose [Mass/Vol] 96 mg/dL 74-106 [facility] Neutrophils (Bld) [#/Vol] 5.3 10*3/uL 2.0-7.7 [facility] Neutrophils/100 WBC (Bld) 70.5 % 47-70 [facility] Potassium [Moles/Vol] 3.8 mmol/L 3.5-5.1 [facility] Sodium [Moles/Vol] 141 mmol/L 136-145 [facility] WBC (Bld) [#/Vol] 7.6 10*3/uL 4.4-11.0 [facility] Blood erythrocytes count (nu mber/volume)Ordered By: Dr. Garcia on 04-08-2023 RBC (Bld) [#/Vol] 5.14 10*6/uL 4.2-5.4 [facility] Blood hemoglobin measurement (mass/volume)Ordered By: Dr. Garcia on 04-08-2023 Hemoglobin (Bld) [Mass/Vol] 15.1 g/dL 12.0-15.0 [facility] Blood lymphocytes/100 leukoc ytesOrdered By: Dr. Garcia on 04-08-2023 Lymphocytes/100 WBC (Bld) 19.2 % 19-41 [facility] Blood monocytes/100 leukocyt esOrdered By: Dr. Garcia on 04-08-2023 Monocytes/100 WBC (Bld) 7.7 % 0-10 [facility] Blood platelet mean volumeOr dered By: Dr. Garcia on 04-08-2023 Platelet mean volume (Bld) [Entitic vol] 10.2 fL 6.2-12.0 [facility] Determination of erythrocyte mean corpuscular volume (MCV)Ordered By: Dr. Garcia on 04-08-2023 MCV (RBC) [Entitic vol] 89.1 fL 81-99 [facility] Hematocrit Auto (Bld) [Volum e fraction]Ordered By: Dr. Garcia on 04-08-2023 Hematocrit (Bld) [Volume fraction] 45.8 % 37-47 [facility] Laboratory - Chemistry and C hemistry - challengeOrdered By: Dr. Garcia on 04-08-2023 CO2 [Moles/Vol] 29.0 mmol/L 21.0-32.0 [facility] Urea nitrogen/Creatinine [Mass ratio] 24.0 mg/mg 10-20 [facility] Laboratory - Hematology and Cell countsOrdered By: Dr. Garcia on 04-08-2023 Erythrocyte distribution width (RBC) [Entitic vol] 46.6 fL 35.1-43.9 [facility] Erythrocyte distribution width (RBC) [Ratio] 14.4 % 11.6-14.6 [facility] Immature granulocytes/100 WBC (Bld) 0.400 % 0.0-0.9 [facility] Comment on above: IG% - Immature Granu locytes (promyelocytes, myelocytes and metamyelocytes) > 1% indicates that a LEFT SHIFT is Present. MCH (RBC) [Entitic mass] 29.4 pg 27.0-32.0 [facility] Nucleated RBC/100 WBC (Bld) [Ratio] 0 % 0-5 [facility] MCHC Auto (RBC) [Mass/Vol]Or dered By: Dr. Garcia on 04-08-2023 MCHC (RBC) [Mass/Vol] 33.0 g/dL 32-36 [facility] No Panel InformationOrdered By: Dr. Garcia on 04-08-2023 Troponin I High Sensitivity 9 pg/mL 3.0-54.0 [facility] Comment on above: Please Note: New Kim t Units and Gender Specific Reference Ranges. For more information see Policy Stat Procedure [place] High Sensitivity Troponin (TNIH) and attachments. Estimated Creatinine Clearance Calc 50.23 ml/min [facility] Estimated GFR (MDRD) Amer 83 mL/min >60 [facility] Comment on above: GFR Calc Estimated GFR (MDRD) Non-Af Amer 68 mL/min >60 [facility] Comment on above: Non- GFR Calc Platelets bldOrdered By: Dr. Garcia on 04-08-2023 Platelets (Bld) [#/Vol] 171 10*3/uL 150-450 [facility] Serum or plasma calcium stefania urement (mass/volume)Ordered By: Dr. Garcia on 04-08-2023 Calcium [Mass/Vol] 9.6 mg/dL 8.5-10.1 [facility] Serum or plasma creatinine m easurement (mass/volume)Ordered By: Dr. Garcia on 04-08-2023 Creatinine [Mass/Vol] 0.88 mg/dL 0.55-1.02 [facility] Comment on above: The validity of the calculated GFR & GFRAA in patients over 70 years has not been determined. Clinical correlation is essential. Serum or plasma urea nitroge n measurement (mass/volume)Ordered By: Dr. Garcia on 04-08-2023 Urea nitrogen [Mass/Vol] 21 mg/dL 7-18 [facility] Thin prep Papanicolaou smear with manual screeningOrdered By: Dr. Garcia on 04-08-2023 Thin prep Papanicolaou smear with manual screening 7 5-15 [facility] Culture, urineOrdered By: Dr Hero Campbell on 04-01-2023 Bacteria identified Cx Nom (U) Positive [facility] Basophil percentageOrdered B y: Dr. Campbell on 03-31-2023 Basophil percentage 0 SEEN /hpf 0-5 [facility] Bilirubin Test strip Ql (U)O rdered By: Dr. Campbell on 03-31-2023 Bilirubin Ql (U) Negative Negative [facility] Ketones Test strip Ql (U)Ord ered By: Dr. Campbell on 03-31-2023 Ketones Ql (U) Negative Negative [facility] Mucus LM Ql (Urine sed)Order ed By: Dr. Campbell on 03-31-2023 Mucus Ql (Urine sed) 0 SEEN /hpf [facility] Nitrite Test strip Ql (U)Ord ered By: Dr. Campbell on 03-31-2023 Nitrite Ql (U) Negative Negative [facility] Protein Test strip Ql (U)Ord ered By: Dr. Campbell on 03-31-2023 Protein Ql (U) Negative Negative [facility] Squamous epithelial cells de tection in urine sediment by light microscopyOrdered By: Dr. Campbell on 03-31-2023 Epithelial cells.squamous LM Ql (Urine sed) 5-10 SEEN /hpf 5-10 [facility] Urine blood detectionOrdered By: Dr. Campbell on 03-31-2023 RBC Ql (U) Negative Negative [facility] RBC Ql (U) 0 SEEN /hpf 0-5 [facility] Urine clarityOrdered By: Dr. Campbell on 03-31-2023 Clarity (U) Clear Clear [facility] Urine color determinationOrd ered By: Dr. Campbell on 03-31-2023 Color (U) Yellow Yellow [facility] Urine glucose detectionOrder ed By: Dr. Campbell on 03-31-2023 Glucose Ql (U) Normal mg/dl Normal [facility] Urine leukocyte esterase det ection by dipstickOrdered By: Dr. Campbell on 03-31-2023 Leukocyte esterase Test strip Ql (U) Negative Negative [facility] Urine pHOrdered By: Dr. Campbell o n 03-31-2023 pH (U) 6.0 [pH] 5.0 - 8.0 [facility] Urine sediment bacteria coun t by microscopy (number/high power field)Ordered By: Dr. Campbell on 03-31-2023 Bacteria LM.HPF (Urine sed) [#/Area] 1 /[HPF] None Seen [facility] Urine specific gravity measu rementOrdered By: Dr. Campbell on 03-31-2023 Specific gravity (U) [Rel density] 1.010 1.002-1.03 0 [facility] Urobilinogen Auto test strip Ql (U)Ordered By: Dr. Campbell on 03-31-2023 Urobilinogen Ql (U) Normal mg/dl Normal [facility] LABORATORYOrdered By: SYSTEM SYSTEM on 11-09-2022 Basophils (Bld) [#/Vol] 0.1 103/mcL Invalid Interpretation Code 0.0 - 0.3 10^3/mcL AH Workflow SS Basophils/100 WBC (Bld) 0.8 % Invalid Interpretation Code 0.0 - 2.5 % AH Workflow SS Calcium [Mass/Vol] 9.3 mg/dL Invalid Interpretation Code 8.7 - 10.4 mg/dL AH ADM SS Chloride [Moles/Vol] 108 mmol/L Invalid [...] Invalid Interpretation Code 0.0 - 6.0 % Workflow SS Erythrocyte distribution width (RBC) [Ratio] 15.3 % Invalid Interpretation Code 11.5 - 15.5 % Workflow SS GFR/1.73 sq M.predicted among blacks [...] Invalid Interpretation Code 0.9 - 4.3 10^3/mcL Workflow SS Lymphocytes/100 WBC (Bld) 18.6 % Invalid Interpretation Code 20.0 - 40.0 % Workflow SS MCH (RBC) [Entitic mass] 29.0 pg Invalid Interpretation Code 27.0 - 33.0 pg AH Workflow SS MCHC 33.2 G/dL Invalid Interpretation Code 32.0 - 36.0 G/dL AH Workflow SS MCV (RBC) [Entitic vol] 87.2 fL Invalid Interpretation Code 80.0 - 99.0 fL Workflow SS Monocytes (Bld) [#/Vol] 0.6 103/mcL [...] Invalid Interpretation Code 150 - 450 10^3/mcL AH Workflow SS Potassium [Moles/Vol] 4.4 mmol/L Invalid Interpretation Code 3.5 - 5.0 mEq/L ADM SS RBC (Bld) [#/Vol] 5.11 106/mcL Invalid Interpretation Code 4.10 - 5.30 10^6/mcL AH Workflow SS Sodium [Moles/Vol] 144 mmol/L Invalid Interpretation Code 136 - 145 mEq/L ADM SS Urea nitrogen [Mass/Vol] 19.0 mg/dL Invalid Interpretation Code 8.0 - 22.0 mg/dL AH ADM SS Urea nitrogen/Creatinine [Mass ratio] 24.4 ratio Invalid Interpretation Code 10.0 - 22.0 ratio AH ADM SS WBC (Bld) [#/Vol] 6.4 103/mcL Invalid Interpretation Code 4.5 - 10.8 10^3/mcL Workflow SS Absolute lymphocyte countOrd ered By: Dr. Benton on 10-20-2022 Lymphocytes Auto (Unsp spec) [#/Vol] 1.75 10*3/uL 0.83-4.51 [facility] Basophil percentageOrdered B y: Dr. Benton on 10-20-2022 Basophil percentage < 0.2 AI 0.0-0.9 [facility] Basophils/100 WBC (Bld) 1.0 % 0-1 [facility] Bilirubin [Mass/Vol] 0.70 mg/dL 0.20-1.00 [facility] Comment on above: For patients on eltr ombopag therapy, use of Dimension [place] TBIL is not recommended. Chloride [Moles/Vol] 107 mmol/L 98-107 [facility] Eosinophils/100 WBC (Bld) 1.8 % 0-5 [facility] Glucose [Mass/Vol] 89 mg/dL 74-106 [facility] Neutrophils (Bld) [#/Vol] 5.8 10*3/uL 2.0-7.7 [facility] Neutrophils/100 WBC (Bld) 68.4 % 47-70 [facility] Potassium [Moles/Vol] 4.2 mmol/L 3.5-5.1 [facility] Protein [Mass/Vol] 7.0 g/dL 6.4-8.2 [facility] Sodium [Moles/Vol] 140 mmol/L 136-145 [facility] WBC (Bld) [#/Vol] 8.4 10*3/uL 4.4-11.0 [facility] Blood erythrocytes count (nu mber/volume)Ordered By: Dr. Benton on 10-20-2022 RBC (Bld) [#/Vol] 5.49 10*6/uL 4.2-5.4 [facility] Blood hemoglobin measurement (mass/volume)Ordered By: Dr. Benton on 10-20-2022 Hemoglobin (Bld) [Mass/Vol] 15.6 g/dL 12.0-15.0 [facility] Blood lymphocytes/100 leukoc ytesOrdered By: Dr. Benton on 10-20-2022 Lymphocytes/100 WBC (Bld) 20.8 % 19-41 [facility] Blood monocytes/100 leukocyt esOrdered By: Dr. Benton on 10-20-2022 Monocytes/100 WBC (Bld) 7.5 % 0-10 [facility] Blood platelet mean volumeOr dered By: Dr. Benton on 10-20-2022 Platelet mean volume (Bld) [Entitic vol] 10.1 fL 6.2-12.0 [facility] Determination of erythrocyte mean corpuscular volume (MCV)Ordered By: Dr. Benton on 10-20-2022 MCV (RBC) [Entitic vol] 87.8 fL 81-99 [facility] Erythrocyte sedimentation ra teOrdered By: Dr. Benton on 10-20-2022 ESR (Bld) [Velocity] 19 mm/h 0-30 [facility] Hematocrit Auto (Bld) [Volum e fraction]Ordered By: Dr. Benton on 10-20-2022 Hematocrit (Bld) [Volume fraction] 48.2 % 37-47 [facility] Laboratory - Chemistry and C hemistry - challengeOrdered By: Dr. Benton on 10-20-2022 ALP [Catalytic activity/Vol] 126 U/L 45-117 [facility] ALT [Catalytic activity/Vol] 18 U/L 13-56 [facility] Amylase [Catalytic activity/Vol] 22 U/L 5-55 [facility] CO2 [Moles/Vol] 28.0 mmol/L 21.0-32.0 [facility] Free T4 [Mass/Vol] 1.41 ng/dL 0.76-1.46 [facility] Globulin (S) [Mass/Vol] 3.1 g/dL 2.2-4.2 [facility] Lipase [Catalytic activity/Vol] 88 U/L 73-393 [facility] Urea nitrogen/Creatinine [Mass ratio] 20.8 mg/mg 10-20 [facility] Laboratory - Hematology and Cell countsOrdered By: Dr. Benton on 10-20-2022 Erythrocyte distribution width (RBC) [Entitic vol] 47.9 fL 35.1-43.9 [facility] Erythrocyte distribution width (RBC) [Ratio] 14.9 % 11.6-14.6 [facility] Immature granulocytes/100 WBC (Bld) 0.500 % 0.0-0.9 [facility] Comment on above: IG% - Immature Granu locytes (promyelocytes, myelocytes and metamyelocytes) > 1% indicates that a LEFT SHIFT is Present. MCH (RBC) [Entitic mass] 28.4 pg 27.0-32.0 [facility] Nucleated RBC/100 WBC (Bld) [Ratio] 0 % 0-5 [facility] MCHC Auto (RBC) [Mass/Vol]Or dered By: Dr. Benton on 10-20-2022 MCHC (RBC) [Mass/Vol] 32.4 g/dL 32-36 [facility] No Panel InformationOrdered By: Dr. Benton on 10-20-2022 Centromere B Antibody <0.2 AI 0.0-0.9 [facility] Estimated GFR (MDRD) Amer 96 mL/min >60 [facility] Comment on above: GFR Calc Estimated GFR (MDRD) Non-Af Amer 79 mL/min >60 [facility] Comment on above: Non- GFR Calc OIL HEATER INSTALLER Antibody <0.2 AI 0.0-0.9 [facility] Thyroid Stimulating Hormone (TSH) 1.66 uIU/mL 0.358-3.74 [facility] Vitamin D 25-Hydroxy 59.8 ng/mL [facility] Comment on above: Vitamin D 25(OH) Sta tus Range Deficiency <20 ng/mL (50nmol/L) Insufficiency 20 - 30 ng/mL (50 - 75 nmol/L) Sufficiency 30 - 100 ng/mL (75 - 250 nmol/L) Toxicity >100 ng/mL (>250 nmol/L) Platelets bldOrdered By: Dr. Benton on 10-20-2022 Platelets (Bld) [#/Vol] 197 10*3/uL 150-450 [facility] Serum DNA double strand anti body assay (units/volume)Ordered By: Dr. Benton on 10-20-2022 DNA double strand Ab Qn (S) [IU]/mL 0-9 [facility] Comment on above: Negative <5 Equivoca l 5 - 9 Positive >9 Serum Myrtle-1 antibody assay (u nits/volume)Ordered By: Dr. Benton on 10-20-2022 Myrtle-1 extractable nuclear Ab Qn (S) <0.2 AI 0.0-0.9 [facility] Serum Scl-70 extractable nuc lear antibody assay (units/volume)Ordered By: Dr. Benton on 10-20-2022 SCL-70 extractable nuclear Ab Qn (S) 0.2 AI 0.0-0.9 [facility] Serum Benton extractable nucl ear antibody detectionOrdered By: Dr. Benton on 10-20-2022 Chetan extractable nuclear Ab Ql (S) <0.2 AI 0.0-0.9 [facility] Serum or plasma C reactive p rotein measurement (mass/volume)Ordered By: Dr. Benton on 10-20-2022 CRP [Mass/Vol] mg/L 0.0-3.0 [facility] Comment on above: C-Reactive Protein ( CRP) provides useful information for thediagnosis, therapy and monitoring of inflammatory processesand associated diseases. For the evaluation of Relative Riskfor Cardiovascular Disease, a High Sensitivity CRP (HSCRP)should be ordered. Serum or plasma albumin stefania urement (mass/volume)Ordered By: Dr. Benton on 10-20-2022 Albumin [Mass/Vol] 3.9 g/dL 3.2-5.0 [facility] Serum or plasma albumin/glob ulin mass ratioOrdered By: Dr. Benton on 10-20-2022 Albumin/Globulin [Mass ratio] 1.3 {ratio} 0.9-2.4 [facility] Serum or plasma calcium stefania urement (mass/volume)Ordered By: Dr. Benton on 10-20-2022 Calcium [Mass/Vol] 9.2 mg/dL 8.5-10.1 [facility] Serum or plasma creatinine m easurement (mass/volume)Ordered By: Dr. Benton on 10-20-2022 Creatinine [Mass/Vol] 0.77 mg/dL 0.55-1.02 [facility] Comment on above: The validity of the calculated GFR & GFRAA in patients over 70 years has not been determined. Clinical correlation is essential. Serum or plasma urea nitroge n measurement (mass/volume)Ordered By: Dr. Benton on 10-20-2022 Urea nitrogen [Mass/Vol] 16 mg/dL 7-18 [facility] Serum rheumatoid factor dete ctionOrdered By: Dr. Benton on 10-20-2022 Rheumatoid factor Ql (S) < 10.0 IU/mL <15 [facility] Thin prep Papanicolaou smear with manual screeningOrdered By: Dr. Benton on 10-20-2022 Thin prep Papanicolaou smear with manual screening 14 U/L 15-37 [facility] Thin prep Papanicolaou smear with manual screening 5 5-15 [facility] No Panel Informationon 05-02 Estimated GFR (MDRD) Amer 77 mL/min >60 [facility] Work Phone: Comment on above: GFR Calc Estimated GFR (MDRD) Non-Af Amer 63 mL/min >60 [facility] Work Phone: Comment on above: Non- GFR Calc Serum or plasma creatinine m easurement (mass/volume)on 05-02-2022 Creatinine [Mass/Vol] 0.94 mg/dL 0.55-1.02 [facility] Work Phone: Comment on above: The validity of the calculated GFR & GFRAA in patients over 70 years has not been determined. Clinical correlation is essential. Serum or plasma urea nitroge n measurement (mass/volume)on 05-02-2022 Urea nitrogen [Mass/Vol] 11 mg/dL 7-18 [facility] Work Phone: Absolute lymphocyte counton 02-20-2022 Lymphocytes Auto (Unsp spec) [#/Vol] 1.50 10*3/uL 0.83-4.51 [facility] Work Phone: Basophil percentageon 2021 Basophils/100 WBC (Bld) 0.3 % 0-1 [facility] Work Phone: Bilirubin [Mass/Vol] 0.20 mg/dL 0.20-1.00 [facility] Work Phone: Comment on above: For patients on eltr ombopag therapy, use of Dimension Bruneau TBIL is not recommended. Chloride [Moles/Vol] 107 mmol/L 98-107 [facility] Work Phone: Eosinophils/100 WBC (Bld) 0.8 % 0-5 [facility] Work Phone: Glucose [Mass/Vol] 97 mg/dL 74-106 [facility] Work Phone: Neutrophils (Bld) [#/Vol] 4.0 10*3/uL 2.0-7.7 [facility] Work Phone: Neutrophils/100 WBC (Bld) 65.5 % 47-70 [facility] Work Phone: Potassium [Moles/Vol] 3.5 mmol/L 3.5-5.1 [facility] Work Phone: Protein [Mass/Vol] 6.5 g/dL 6.4-8.2 [facility] Work Phone: Sodium [Moles/Vol] 142 mmol/L 136-145 [facility] Work Phone: WBC (Bld) [#/Vol] 6.2 10*3/uL 4.4-11.0 [facility] Work Phone: Blood erythrocytes count (nu mber/volume)on 02-20-2022 RBC (Bld) [#/Vol] 4.80 10*6/uL 4.2-5.4 [facility] Work Phone: [phone] Blood hemoglobin measurement (mass/volume)on 02-20-2022 Hemoglobin (Bld) [Mass/Vol] 14.1 g/dL 12.0-15.0 [facility] Work Phone: Blood lymphocytes/100 leukoc yteson 02-20-2022 Lymphocytes/100 WBC (Bld) 24.4 % 19-41 [facility] Work Phone: Blood monocytes/100 leukocyt eson 02-20-2022 Monocytes/100 WBC (Bld) 8.3 % 0-10 [facility] Work Phone: Blood platelet mean volumeon 02-20-2022 Platelet mean volume (Bld) [Entitic vol] 10.0 fL 6.2-12.0 [facility] Work Phone: Determination of erythrocyte mean corpuscular volume (MCV)on 02-20-2022 MCV (RBC) [Entitic vol] 90.6 fL 81-99 [facility] Work Phone: Direct bilirubinon 2 Bilirubin.direct [Mass/Vol] 0.10 mg/dL 0.00-0.30 [facility] Work Phone: Hematocrit Auto (Bld) [Volum e fraction]on 02-20-2022 Hematocrit (Bld) [Volume fraction] 43.5 % 37-47 [facility] Work Phone: INR in Blood by Coagulation assayon 02-20-2022 INR Coag (Bld) [Relative time] 1.0 {INR} [facility] Work Phone: Laboratory - Chemistry and C hemistry - challengeon 02-20-2022 ALP [Catalytic activity/Vol] 97 U/L 45-117 [facility] Work Phone: ALT [Catalytic activity/Vol] 18 U/L 13-56 [facility] Work Phone: [phone] CO2 [Moles/Vol] 30.0 mmol/L 21.0-32.0 [facility] Work Phone: Globulin (S) [Mass/Vol] 3.2 g/dL 2.2-4.2 [facility] Work Phone: Lipase [Catalytic activity/Vol] 38 U/L 73-393 [facility] Work Phone: Urea nitrogen/Creatinine [Mass ratio] 17.8 mg/mg 10-20 [facility] Work Phone: Laboratory - Coagulationon 0 02-20-2022 PT Coag (PPP) [Time] 12.3 s 11.7-14.9 [facility] Work Phone: Laboratory - Hematology and Cell countson 02-20-2022 Erythrocyte distribution width (RBC) [Entitic vol] 45.6 fL 35.1-43.9 [facility] Work Phone: Erythrocyte distribution width (RBC) [Ratio] 13.7 % 11.6-14.6 [facility] Work Phone: Immature granulocytes/100 WBC (Bld) 0.700 % 0.0-0.9 [facility] Work Phone: Comment on above: IG% - Immature Granu locytes (promyelocytes, myelocytes and metamyelocytes) > 1% indicates that a LEFT SHIFT is Present. MCH (RBC) [Entitic mass] 29.4 pg 27.0-32.0 [facility] Work Phone: Nucleated RBC/100 WBC (Bld) [Ratio] 0 % 0-5 [facility] Work Phone: MCHC Auto (RBC) [Mass/Vol]on 02-20-2022 MCHC (RBC) [Mass/Vol] 32.4 g/dL 32-36 [facility] Work Phone: No Panel Informationon 02-20 Estimated Creatinine Clearance Calc 59.57 ml/min [facility] Work Phone: Estimated GFR (MDRD) Amer 86 mL/min >60 [facility] Work Phone: Comment on above: GFR Calc Estimated GFR (MDRD) Non-Af Amer 71 mL/min >60 [facility] Work Phone: Comment on above: Non- GFR Calc Troponin I High Sensitivity 4 pg/mL 3.0-54.0 [facility] Work Phone: Comment on above: Please Note: New Kim t Units and Gender Specific Reference Ranges. For more information see Policy Stat Procedure Bruneau High Sensitivity Troponin (TNIH) and attachments. Platelets bldon 02-20-2022 Platelets (Bld) [#/Vol] 171 10*3/uL 150-450 [facility] Work Phone: Serum or plasma albumin stefania urement (mass/volume)on 02-20-2022 Albumin [Mass/Vol] 3.3 g/dL 3.2-5.0 [facility] Work Phone: Serum or plasma calcium stefania urement (mass/volume)on 02-20-2022 Calcium [Mass/Vol] 8.7 mg/dL 8.5-10.1 [facility] Work Phone: Serum or plasma creatinine m easurement (mass/volume)on 02-20-2022 Creatinine [Mass/Vol] 0.84 mg/dL 0.55-1.02 [facility] Work Phone: Comment on above: The validity of the calculated GFR & GFRAA in patients over 70 years has not been determined. Clinical correlation is essential. Serum or plasma urea nitroge n measurement (mass/volume)on 02-20-2022 Urea nitrogen [Mass/Vol] 15 mg/dL 7-18 [facility] Work Phone: Thin prep Papanicolaou smear with manual screeningon 02-20-2022 Thin prep Papanicolaou smear with manual screening 11 U/L 15-37 [facility] Work Phone: [phone] Thin prep Papanicolaou smear with manual screening 5 5-15 [facility] Work Phone: Absolute lymphocyte counton 02-18-2022 Lymphocytes Auto (Unsp spec) [#/Vol] 1.64 10*3/uL 0.83-4.51 [facility] Work Phone: Basophil percentageon 2021 Basophils/100 WBC (Bld) 0.9 % 0-1 [facility] Work Phone: [phone] Chloride [Moles/Vol] 108 mmol/L 98-107 [facility] Work Phone: Eosinophils/100 WBC (Bld) 3.1 % 0-5 [facility] Work Phone: Glucose [Mass/Vol] 112 mg/dL 74-106 [facility] Work Phone: Comment on above: Fasting Glucose resu lt from 100 to 125 mg/dL suggests IMPAIRED HOMEOSTASIS per A.D.A. criteria. Neutrophils (Bld) [#/Vol] 3.8 10*3/uL 2.0-7.7 [facility] Work Phone: Neutrophils/100 WBC (Bld) 58.7 % 47-70 [facility] Work Phone: [phone] Potassium [Moles/Vol] 3.6 mmol/L 3.5-5.1 [facility] Work Phone: Sodium [Moles/Vol] 141 mmol/L 136-145 [facility] Work Phone: [phone] WBC (Bld) [#/Vol] 6.4 10*3/uL 4.4-11.0 [facility] Work Phone: Blood erythrocytes count (nu mber/volume)on 02-18-2022 RBC (Bld) [#/Vol] 5.18 10*6/uL 4.2-5.4 [facility] Work Phone: Blood hemoglobin measurement (mass/volume)on 02-18-2022 Hemoglobin (Bld) [Mass/Vol] 15.0 g/dL 12.0-15.0 [facility] Work Phone: Blood lymphocytes/100 leukoc yteson 02-18-2022 Lymphocytes/100 WBC (Bld) 25.5 % 19-41 [facility] Work Phone: Blood monocytes/100 leukocyt eson 02-18-2022 Monocytes/100 WBC (Bld) 11.2 % 0-10 [facility] Work Phone: Blood platelet mean volumeon 02-18-2022 Platelet mean volume (Bld) [Entitic vol] 9.8 fL 6.2-12.0 [facility] Work Phone: Determination of erythrocyte mean corpuscular volume (MCV)on 02-18-2022 MCV (RBC) [Entitic vol] 88.2 fL 81-99 [facility] Work Phone: Hematocrit Auto (Bld) [Volum e fraction]on 02-18-2022 Hematocrit (Bld) [Volume fraction] 45.7 % 37-47 [facility] Work Phone: INR in Blood by Coagulation assayon 02-18-2022 INR Coag (Bld) [Relative time] 1.0 {INR} [facility] Work Phone: Laboratory - Chemistry and C hemistry - challengeon 02-18-2022 CO2 [Moles/Vol] 29.0 mmol/L 21.0-32.0 [facility] Work Phone: Magnesium [Mass/Vol] 2.1 mg/dL 1.6-2.6 [facility] Work Phone: Urea nitrogen/Creatinine [Mass ratio] 13.9 mg/mg 10-20 [facility] Work Phone: Laboratory - Coagulationon 0 4-02-2022 aPTT Coag (Bld) [Time] 28.9 s 24.1-36.2 [facility] Work Phone: PT Coag (PPP) [Time] 12.6 s 11.7-14.9 [facility] Work Phone: Laboratory - Hematology and Cell countson 02-18-2022 Erythrocyte distribution width (RBC) [Entitic vol] 43.7 fL 35.1-43.9 [facility] Work Phone: Erythrocyte distribution width (RBC) [Ratio] 13.5 % 11.6-14.6 [facility] Work Phone: Immature granulocytes/100 WBC (Bld) 0.600 % 0.0-0.9 [facility] Work Phone: Comment on above: IG% - Immature Granu locytes (promyelocytes, myelocytes and metamyelocytes) > 1% indicates that a LEFT SHIFT is Present. MCH (RBC) [Entitic mass] 29.0 pg 27.0-32.0 [facility] Work Phone: Nucleated RBC/100 WBC (Bld) [Ratio] 0 % 0-5 [facility] Work Phone: MCHC Auto (RBC) [Mass/Vol]on 02-18-2022 MCHC (RBC) [Mass/Vol] 32.8 g/dL 32-36 [facility] Work Phone: No Panel Informationon 02-18 Troponin I High Sensitivity 5 pg/mL 3.0-54.0 [facility] Work Phone: Comment on above: Please Note: New Kim t Units and Gender Specific Reference Ranges. For more information see Policy Stat Procedure Bruneau High Sensitivity Troponin (TNIH) and attachments. Estimated Creatinine Clearance Calc 51.11 ml/min [facility] Work Phone: Estimated GFR (MDRD) Amer 93 mL/min >60 [facility] Work Phone: Comment on above: GFR Calc Estimated GFR (MDRD) Non-Af Amer 77 mL/min >60 [facility] Work Phone: Comment on above: Non- GFR Calc Platelets bldon 02-18-2022 Platelets (Bld) [#/Vol] 207 10*3/uL 150-450 [facility] Work Phone: Serum or plasma calcium stefania urement (mass/volume)on 02-18-2022 Calcium [Mass/Vol] 8.8 mg/dL 8.5-10.1 [facility] Work Phone: Serum or plasma creatinine m easurement (mass/volume)on 02-18-2022 Creatinine [Mass/Vol] 0.79 mg/dL 0.55-1.02 [facility] Work Phone: Comment on above: The validity of the calculated GFR & GFRAA in patients over 70 years has not been determined. Clinical correlation is essential. Serum or plasma urea nitroge n measurement (mass/volume)on 02-18-2022 Urea nitrogen [Mass/Vol] 11 mg/dL 7-18 [facility] Work Phone: Thin prep Papanicolaou smear with manual screeningon 02-18-2022 Thin prep Papanicolaou smear with manual screening 4 5-15 [facility] Work Phone: Basophil percentageon 2021 Basophil percentage 4.4 mg/dL 2.5-4.9 [facility] Work Phone: Chloride [Moles/Vol] 106 mmol/L 98-107 [facility] Work Phone: Glucose [Mass/Vol] 92 mg/dL 74-106 [facility] Work Phone: Potassium [Moles/Vol] 3.9 mmol/L 3.5-5.1 [facility] Work Phone: Sodium [Moles/Vol] 141 mmol/L 136-145 [facility] Work Phone: WBC (Bld) [#/Vol] 7.7 10*3/uL 4.4-11.0 [facility] Work Phone: Blood erythrocytes count (nu mber/volume)on 01-18-2022 RBC (Bld) [#/Vol] 5.55 10*6/uL 4.2-5.4 [facility] Work Phone: Blood hemoglobin measurement (mass/volume)on 01-18-2022 Hemoglobin (Bld) [Mass/Vol] 16.9 g/dL 12.0-15.0 [facility] Work Phone: Blood platelet mean volumeon 01-18-2022 Platelet mean volume (Bld) [Entitic vol] 9.7 fL 6.2-12.0 [facility] Work Phone: Determination of erythrocyte mean corpuscular volume (MCV)on 01-18-2022 MCV (RBC) [Entitic vol] 90.5 fL 81-99 [facility] Work Phone: Hematocrit Auto (Bld) [Volum e fraction]on 01-18-2022 Hematocrit (Bld) [Volume fraction] 50.2 % 37-47 [facility] Work Phone: Laboratory - Chemistry and C hemistry - challengeon 01-18-2022 CO2 [Moles/Vol] 31.0 mmol/L 21.0-32.0 [facility] Work Phone: Urea nitrogen/Creatinine [Mass ratio] 18.6 mg/mg 10-20 [facility] Work Phone: Laboratory - Hematology and Cell countson 01-18-2022 Erythrocyte distribution width (RBC) [Entitic vol] 46.6 fL 35.1-43.9 [facility] Work Phone: Erythrocyte distribution width (RBC) [Ratio] 13.8 % 11.6-14.6 [facility] Work Phone: MCH (RBC) [Entitic mass] 30.5 pg 27.0-32.0 [facility] Work Phone: MCHC Auto (RBC) [Mass/Vol]on 01-18-2022 MCHC (RBC) [Mass/Vol] 33.7 g/dL 32-36 [facility] Work Phone: No Panel Informationon 01-18 Estimated Creatinine Clearance Calc 50.37 ml/min [facility] Work Phone: Estimated GFR (MDRD) Amer 74 mL/min >60 [facility] Work Phone: Comment on above: GFR Calc Estimated GFR (MDRD) Non-Af Amer 61 mL/min >60 [facility] Work Phone: Comment on above: Non- GFR Calc Platelets bldon 01-18-2022 Platelets (Bld) [#/Vol] 233 10*3/uL 150-450 [facility] Work Phone: Serum or plasma albumin stefania urement (mass/volume)on 01-18-2022 Albumin [Mass/Vol] 3.6 g/dL 3.2-5.0 [facility] Work Phone: Serum or plasma calcium stefania urement (mass/volume)on 01-18-2022 Calcium [Mass/Vol] 9.2 mg/dL 8.5-10.1 [facility] Work Phone: Serum or plasma creatinine m easurement (mass/volume)on 01-18-2022 Creatinine [Mass/Vol] 0.97 mg/dL 0.55-1.02 [facility] Work Phone: Comment on above: The validity of the calculated GFR & GFRAA in patients over 70 years has not been determined. Clinical correlation is essential. Serum or plasma urea nitroge n measurement (mass/volume)on 01-18-2022 Urea nitrogen [Mass/Vol] 18 mg/dL 7-18 [facility] Work Phone: Basophil percentageon 2020 Creatinine [Mass/Vol] 0.8 mg/dL 0.55-1.02 [facility] Work Phone: No Panel Informationon 11-17 Bedside Estimated GFR (eGFR) > 60.0000 mL/min >60 [facility] Work Phone: MRI BRAIN WO/W IVCONon 04-12 MRI BRAIN WO/W IVCON * * *Final Report* * * DATE OF EXAM: Apr 12 2021 2:24PM CARISA [id number] - MRI BRAIN WO/W IVCON / [...] Improvement: None. New Enhancing Lesions: None T2 [place] of Disease: Mild. Parenchymal Volume Loss: None. [...] by greater than or equal to 2mm). Hotel Director: PSCB Transcribe Date/Time: Apr 12 2021 2:27P Dictated by : MELIZA MOMIN MD This examination was interpreted and the report reviewed and electronically signed by: MELIZA MOMIN MD on Apr 12 2021 2:33PM EST [id number] Normal [facility] CNOVon 02-09-2021 CNOV Office Visit (WSTR ) ----- CHRISTIN,ANGÉLICA R ([id number]) 1955 F Date Time Provider Department 02/09/21 3:00 PM ALEXANDER GORE WSTR During your visit today, we recorded the following information about you: Alexander Gore MD 02/09/2021 3:06 PM Signed Express [...] Comments: Heartburn PREDNISONE 12/15/2008 Comments: Destroyed bone. [id number]-[id number] REDUCTASE INHIBIT*04/27/2011 5 - Intolerance TRICOR (FENOFIBRATE [...] occlusive disease (HCC) [I7* Encounter Status:Closed by ALEXANDER GORE MD on 02/09/[address] [facility] XR Chest PA and Lateralon IMPRESSION: Trace linear atelectasis at the left base. Hotel Director: PSCB Transcribe Date/Time: Nov 25 2020 3:18P Dictated by : JOHANA DEUTSCH MD This examination was interpreted and the report reviewed and electronically signed by: JOHANA DEUTSCH MD on Nov 25 2020 3:19PM [facility] DIVISION OF RADIOLOGY * * [...] the thoracic spine. DIVISION OF RADIOLOGY Provider, [facility] - 11/25/2020 * * *Final Report* [...] Trace linear atelectasis at the left base. Hotel Director: PSCB Transcribe Date/Time: Nov 25 2020 3:18P Dictated by : JOHANA DEUTSCH MD This examination was interpreted and the report reviewed and electronically signed by: JOHANA DEUTSCH MD on Nov 25 2020 3:19PM EST [facility] Radiology Study observation (narrative) Deangelo Almonte XR Chest PA and LateralOrder ed By: [facility] Provider on 11-25-2020 [facility] PROGRESSon 12-22-2017 PROGRESS HNO ID: [id number] thor: Yogesh Hartley: (none)Author Type: PhysicianType: Progress [...] discussed with the patient the possibility that jayleene should continue her follow-up with Dr. Barnett as he seems to beprimarily managing these problems [place]. At this point in timeI tell her [...] visit, with more than50% of the total xqgj-le-meoy time of the visit in counseling /coordination of care. Normal [facility] CNOVon 12-21-2017 CNOV Office Visit (AGMIL) ANGÉLICA YO ([id number]) 1955 FDate Time Provider Department12/21/17 10:30 AM YOGESH ONOFRE AGMIEmilee During your visit today, we recorded the [...] with more than 50% of the total iwls-rm-nyreptor of the visit in counseling / coordination of care.Referring Provider: ZHANE PARRA [[id number]]Allergies As of Date: 12/21/2017 Noted Allergy ReactionANTIHISTAMINES 04/28/2004 Comments: messes her head upASA (SALICYLATES) 12/04/2008CODEINE 04/28/2004 Comments: nauseaFENTANYL 02/19/2012 14 - Other: See Comments Comments: Sweating/ FlushingMORPHINE 04/28/2004 Comments: nausea and vomitingPLAVIX (CLOPIDOGREL BISULFATE) 12/18/2011 14 - Other: See Comments Comments: HeartburnPREDNISONE 12/15/2008 Comments: Destroyed bone.WLKEMMA-GCM-PBY REDUCTASE INHIBIT*04/27/2011 5 - IntoleranceTRICOR (FENOFIBRATE MICRONIZED) 04/27/2011 5 - IntoleranceDate Reviewed: 12/21/2017Reviewed by: Romelia Medina LPN - Fully AssessedReason for Visit: [...] 5 MG-ACETAMINOPHEN 325 MG TABLET >> Romelia Medina LPN 12/21/2017 10:42 AM >> ROMELIA MEDINA LPN SunDec 21, 2017 10:42 AMProblem [...] vascular occlusive disease (HCC) [I7*Letter TextEncounter Number: [id number] Status:Closed by YOGESH ONOFRE MD on 12/22/17 [facility] [facility] Vital Signs Date Time Vital Sign Value Performing Clinician Brandon galvez 07-23-2025 12:31-0400 Body height 167.6 cm Lizz Ayala CNP Work Phone: [facility] [place] 07-23-2025 12:31-0400 Body mass index (BMI) [Ratio] 17.11 kg/m2 Lizz Ayala CNP Work Phone: [facility] [place] 07-23-2025 12:31-0400 Body weight 48.08 kg Lizz Lynn SYSTEMS CONSULTANT - [employer] Work Phone: [facility] 07-23-2025 12:31-0400 Diastolic blood pressure 64 mm[Hg] Lizz Lynn SYSTEMS CONSULTANT - [employer] Work Phone: [facility] 07-23-2025 12:31-0400 Heart rate 47 /min Lizz Lynn SYSTEMS CONSULTANT - [employer] Work Phone: [facility] 07-23-2025 12:31-0400 Systolic blood pressure 103 mm[Hg] Lizz Navas SYSTEMS CONSULTANT - [employer] Work Phone: [facility] 07-23-2025 00:50-0400 Body temperature 98.2 [degF] Dr. Jacinda Benton MD Work Phone: [facility] 07-23-2025 00:50-0400 Diastolic blood pressure 74 mm[Hg] Dr. Jacinda Benton MD Work Phone: [facility] 07-23-2025 00:50-0400 Heart rate 70 /min Dr. Jacinda Benton MD Work Phone: [facility] 07-23-2025 00:50-0400 Respiratory rate 18 /min Dr. Jacinda Benton MD Work Phone: [facility] 07-23-2025 00:50-0400 SaO2% (BldA) [Mass fraction] 97 % Dr. Jacinda Benton MD Work Phone: [facility] 07-23-2025 00:50-0400 Systolic blood pressure 135 mm[Hg] Dr. Jacinda Benton MD Work Phone: [facility] 07-22-2025 21:56-0400 Body height 165.[address] Jacinda Benton MD Work Phone: [facility] 07-22-2025 21:56-0400 Body mass index (BMI) [Ratio] 18.1 kg/m2 Dr. Jacinda Benton MD Work Phone: [facility] 07-22-2025 21:56-0400 Body weight 49.[address] Jacinda Benton MD Work Phone: 2(965)334-477858 [place] [address] 07-05-2025 23:28-0400 Body temperature 98.6 [degF] Dr. Jacinda Benton MD Work Phone: 0(486)228-642061 [place] [address] 07-05-2025 23:28-0400 Diastolic blood pressure 99 mm[Hg] Dr. Jacinda Benton MD Work Phone: 7(821)896-735361 [place] [address] 07-05-2025 23:28-0400 Heart rate 76 /min Dr. Jacinda Benton MD Work Phone: 9(819)384-075461 [place] [address] 07-05-2025 23:28-0400 Respiratory rate 16 /min Dr. Jacinda Benton MD Work Phone: 0(786)521-539461 [place] [address] 07-05-2025 23:28-0400 SaO2% (BldA) [Mass fraction] 100 % Dr. Jacinda Benton MD Work Phone: 1(860)798-134661 [place] [address] 07-05-2025 23:28-0400 Systolic blood pressure 148 mm[Hg] Dr. Jacinda Benton MD Work Phone: 6(801)734-691661 [place] [address] 07-05-2025 20:54-0400 Body mass index (BMI) [Ratio] 18 kg/m2 Dr. Jacinda Benton MD Work Phone: 7(719)993-838361 [place] [address] 07-05-2025 20:54-0400 Body weight 49.[address] Jacinda Benton MD Work Phone: 6(481)554-465361 [place] [address] 07-05-2025 20:39-0400 Body height 165.[address] Jacinda Benton MD Work Phone: 6(373)455-053061 [place] [address] 06-09-2025 18:11-0400 Diastolic blood pressure 97 mm[Hg] Dr. Jacinda Benton MD Work Phone: 1(050)086-108461 [place] [address] 06-09-2025 18:11-0400 Systolic blood pressure 194 mm[Hg] Dr. Jacinda Benton MD Work Phone: 2(811)937-973561 [place] [address] 06-09-2025 16:33-0400 Body temperature 98 [degF] Dr. Jacinda Benton MD Work Phone: [facility] 06-09-2025 16:33-0400 Heart rate 70 /min Dr. Jacinda Benton MD Work Phone: [facility] 06-09-2025 16:33-0400 Respiratory rate 14 /min Dr. Jacinda Benton MD Work Phone: 6(470)491-627061 [place] [address] 06-09-2025 16:33-0400 SaO2% (BldA) [Mass fraction] 99 % Dr. Jacinda Benton MD Work Phone: 5(015)358-287261 [place] [address] 06-09-2025 08:15-0400 Inhaled oxygen flow rate 2 L/min Dr. Jacinda Benton MD Work Phone: 8(109)751-464161 [place] [address] 06-09-2025 05:43-0400 Body mass index (BMI) [Ratio] 18.1 kg/m2 Dr. Jacinda Benton MD Work Phone: 8(853)638-678461 [place] [address] 06-09-2025 05:43-0400 Body weight 49.[address] Jacinda Benton MD Work Phone: 7(145)964-117861 [place] [address] 06-07-2025 12:32-0400 Body height 165.[address] Jacinda Benton MD Work Phone: 5(731)886-506061 [place] [address] 06-03-2025 08:00-0400 Body temperature 96.8 [degF] Dr. Jacinda Benton MD Work Phone: 9(345)117-681061 [place] [address] 06-03-2025 08:00-0400 Diastolic blood pressure 62 mm[Hg] Dr. Jacinda Benton MD Work Phone: 3(741)020-091861 [place] [address] 06-03-2025 08:00-0400 Heart rate 82 /min Dr. Jacinda Benton MD Work Phone: 0(246)228-370461 [place] [address] 06-03-2025 08:00-0400 Respiratory rate 16 /min Dr. Jacinda Benton MD Work Phone: 9(756)487-627161 [place] [address] 06-03-2025 08:00-0400 SaO2% (BldA) [Mass fraction] 100 % Dr. Jacinda Benton MD Work Phone: 5(144)820-722358 [place] [address] 06-03-2025 08:00-0400 Systolic blood pressure 103 mm[Hg] Dr. Jacinda Benton MD Work Phone: 3(266)389-600658 [place] [address] 06-03-2025 07:37-0400 Inhaled oxygen flow rate 3 L/min Dr. Jacinda Benton MD Work Phone: 3(794)895-682461 [place] [address] 06-03-2025 02:30-0400 Body height 167.[address] Jacinda Benton MD Work Phone: 0(279)384-920261 [place] [address] 06-03-2025 02:30-0400 Body mass index (BMI) [Ratio] 17.7 kg/m2 Dr. Jacinda Bneton MD Work Phone: 7(812)405-848161 [place] [address] 06-03-2025 02:30-0400 Body weight 49.[address] Jacinda Benton MD Work Phone: 7(548)738-314661 [place] [address] 05-19-2025 23:37-0400 Body temperature 97.8 [degF] Dr. Jacinda Benton MD Work Phone: 0(246)235-161561 [place] [address] 05-19-2025 23:37-0400 Diastolic blood pressure 61 mm[Hg] Dr. Jacinda Benton MD Work Phone: 5(581)353-525361 [place] [address] 05-19-2025 23:37-0400 Heart rate 75 /min Dr. Jacinda Benton MD Work Phone: 4(632)730-975361 [place] [address] 05-19-2025 23:37-0400 Respiratory rate 16 /min Dr. Jacinda Benton MD Work Phone: 6(819)494-491658 [place] [address] 05-19-2025 23:37-0400 SaO2% (BldA) [Mass fraction] 96 % Dr. Jacinda Benton MD Work Phone: 0(043)165-613761 [place] [address] 05-19-2025 23:37-0400 Systolic blood pressure 138 mm[Hg] Dr. Jacinda Benton MD Work Phone: 7(243)192-667758 [place] [address] 05-19-2025 22:26-0400 Body mass index (BMI) [Ratio] 17.8 kg/m2 Dr. Jacinda Benton MD Work Phone: 0(149)686-241558 [place] [address] 05-19-2025 22:26-0400 Body weight [address] Jacinda Benton MD Work Phone: 2(727)386-280961 [place] [address] 05-19-2025 20:46-0400 Body height 167.[address] Jacinda Benton MD Work Phone: 3(851)711-886561 [place] [address] 05-06-2025 14:44-0400 Body height 165.[address] Jacinda Benton MD Work Phone: 5(722)144-670161 [place] [address] 05-06-2025 14:44-0400 Body mass index (BMI) [Ratio] 18.3 kg/m2 Dr. Jacinda Benton MD Work Phone: 7(641)288-125561 [place] [address] 05-06-2025 14:44-0400 Body temperature 97.5 [degF] Dr. Jacinda Benton MD Work Phone: 0(693)787-383761 [place] [address] 05-06-2025 14:44-0400 Body weight 49.[address] Jacinda Benton MD Work Phone: 9(231)055-662361 [place] [address] 05-06-2025 14:44-0400 Diastolic blood pressure 79 mm[Hg] Dr. Jacinda Benton MD Work Phone: 7(599)485-631761 [place] [address] 05-06-2025 14:44-0400 Heart rate 74 /min Dr. Jacinda Benton MD Work Phone: 2(450)296-690761 [place] [address] 05-06-2025 14:44-0400 Respiratory rate 16 /min Dr. Jacinda Benton MD Work Phone: 1(957)343-923661 [place] [address] 05-06-2025 14:44-0400 SaO2% (BldA) [Mass fraction] 98 % Dr. Jacinda Benton MD Work Phone: 5(038)351-979161 [place] [address] 05-06-2025 14:44-0400 Systolic blood pressure 163 mm[Hg] Dr. Jacinda Benton MD Work Phone: 4(877)363-918061 [place] [address] 04-22-2025 14:14-0400 Body temperature 97.7 [degF] Dr. Jacinda Benton MD Work Phone: 4(451)009-117191 [address] 04-22-2025 14:14-0400 Diastolic blood pressure 74 mm[Hg] Dr. Jacinda Benton MD Work Phone: 3(382)843-921361 [place] [address] 04-22-2025 14:14-0400 Heart rate 124 /min Dr. Jacinda Benton MD Work Phone: 0(306)014-235761 [place] [address] 04-22-2025 14:14-0400 Respiratory rate 18 /min Dr. Jacinda Benton MD Work Phone: 3(637)624-552061 [place] [address] 04-22-2025 14:14-0400 SaO2% (BldA) [Mass fraction] 94 % Dr. Jacinda Benton MD Work Phone: 5(331)735-944661 [place] [address] 04-22-2025 14:14-0400 Systolic blood pressure 101 mm[Hg] Dr. Jacinda Benton MD Work Phone: 6(831)874-448061 [place] [address] 04-21-2025 15:30-0400 Body height 165.[address] Jacinda Benton MD Work Phone: 3(612)560-407261 [place] [address] 04-21-2025 15:30-0400 Body mass index (BMI) [Ratio] 16.7 kg/m2 Dr. Jacinda Benton MD Work Phone: 1(708)154-726361 [place] [address] 04-21-2025 15:30-0400 Body weight 45.[address] Jacinda Benton MD Work Phone: 7(359)981-733761 [place] [address] 04-18-2025 21:23-0400 Body temperature 98.9 [degF] Dr. Jacinda Benton MD Work Phone: 2(092)108-918961 [place] [address] 04-18-2025 21:23-0400 Diastolic blood pressure 79 mm[Hg] Dr. Jacinda Benton MD Work Phone: 2(163)045-058361 [place] [address] 04-18-2025 21:23-0400 Heart rate 62 /min Dr. Jacinda Benton MD Work Phone: 0(243)732-633361 [place] [address] 04-18-2025 21:23-0400 Respiratory rate 21 /min Dr. Jacinda eBnton MD Work Phone: 0(449)210-530861 [place] [address] 04-18-2025 21:23-0400 SaO2% (BldA) [Mass fraction] 100 % Dr. Jacinda Benton MD Work Phone: 0(224)299-196761 [place] [address] 04-18-2025 21:23-0400 Systolic blood pressure 141 mm[Hg] Dr. Jacinda Benton MD Work Phone: 3(843)817-291561 [place] [address] 04-18-2025 18:17-0400 Body height 165.[address] Jacinda Benton MD Work Phone: 9(915)613-002661 [place] [address] 04-18-2025 18:17-0400 Body mass index (BMI) [Ratio] 16.9 kg/m2 Dr. Jacinda Benton MD Work Phone: 4(898)316-250461 [place] [address] 04-18-2025 18:17-0400 Body weight 46.[address] Jacinda Benton MD Work Phone: 2(716)221-938661 [place] [address] 04-18-2025 01:13-0400 Body temperature 97.7 [degF] Dr. Jacinda Benton MD Work Phone: 8(912)814-186161 [place] [address] 04-18-2025 01:13-0400 Diastolic blood pressure 68 mm[Hg] Dr. Jacinda Benton MD Work Phone: 5(424)072-801961 [place] [address] 04-18-2025 01:13-0400 Heart rate 68 /min Dr. Jacinda Benton MD Work Phone: 6(301)471-962261 [place] [address] 04-18-2025 01:13-0400 Respiratory rate 16 /min Dr. Jacinda Benton MD Work Phone: 2(753)739-693661 [place] [address] 04-18-2025 01:13-0400 SaO2% (BldA) [Mass fraction] 100 % Dr. Jacinda Benton MD Work Phone: 9(643)215-964961 [place] [address] 04-18-2025 01:13-0400 Systolic blood pressure 130 mm[Hg] Dr. Jacinda Benton MD Work Phone: 6(653)723-064561 [place] [address] 04-17-2025 22:17-0400 Body height 165.[address] Jacinda Benton MD Work Phone: 3(590)013-972561 [place] [address] 04-17-2025 22:17-0400 Body mass index (BMI) [Ratio] 16.9 kg/m2 Dr. Jacinda Benton MD Work Phone: [facility] 04-17-2025 22:17-0400 Body weight 46.[address] Jacinda Benton MD Work Phone: [facility] 04-11-2025 16:10-0400 Body temperature 97.6 [degF] Dr. Jacinda Benton MD Work Phone: [facility] 04-11-2025 16:10-0400 Diastolic blood pressure 67 mm[Hg] Dr. Jacinda Benton MD Work Phone: [facility] 04-11-2025 16:10-0400 Heart rate 56 /min Dr. Jacinda Benton MD Work Phone: [facility] 04-11-2025 16:10-0400 Respiratory rate 18 /min Dr. Jacinda Benton MD Work Phone: [facility] 04-11-2025 16:10-0400 SaO2% (BldA) [Mass fraction] 100 % Dr. Jacinda Benton MD Work Phone: [facility] 04-11-2025 16:10-0400 Systolic blood pressure 124 mm[Hg] Dr. Jacinda Benton MD Work Phone: [facility] 04-11-2025 13:17-0400 Body mass index (BMI) [Ratio] 19.1 kg/m2 Dr. Jacinda Benton MD Work Phone: [facility] 04-11-2025 13:17-0400 Body weight 52.[address] Jacinda Benton MD Work Phone: [facility] 04-08-2025 15:20-0400 Diastolic blood pressure 88 mm[Hg] Lizz Lynn SYSTEMS CONSULTANT - [employer] Work Phone: [facility] 04-08-2025 15:20-0400 Heart rate 70 /min Lizz Lynn APRN - [employer] Work Phone: [facility] 04-08-2025 15:20-0400 Systolic blood pressure 151 mm[Hg] Lizz Lynn SYSTEMS CONSULTANT - [employer] Work Phone: [facility] 04-08-2025 14:15-0400 Body height 167.6 cm Lizz Lynn SYSTEMS CONSULTANT - [employer] Work Phone: [facility] 04-08-2025 14:15-0400 Body mass index (BMI) [Ratio] 17.53 kg/m2 Lizz Lynn SYSTEMS CONSULTANT - [employer] Work Phone: [facility] 04-08-2025 14:15-0400 Body weight 49.26 kg Lizz Lynn SYSTEMS CONSULTANT - [employer] Work Phone: [facility] 04-02-2025 22:25-0400 Body temperature 98.1 [degF] Dr. Jacinda Benton MD Work Phone: [facility] 04-02-2025 22:25-0400 Diastolic blood pressure 79 mm[Hg] Dr. Jacinda Benton MD Work Phone: [facility] 04-02-2025 22:25-0400 Heart rate 73 /min Dr. Jacinda Benton MD Work Phone: [facility] 04-02-2025 22:25-0400 Respiratory rate 18 /min Dr. Jacinda Benton MD Work Phone: [facility] 04-02-2025 22:25-0400 SaO2% (BldA) [Mass fraction] 100 % Dr. Jacinda Benton MD Work Phone: [facility] 04-02-2025 22:25-0400 Systolic blood pressure 105 mm[Hg] Dr. Jacnida Benton MD Work Phone: [facility] 04-02-2025 19:21-0400 Body height 165.[address] Jacinda Benton MD Work Phone: [facility] 04-02-2025 19:21-0400 Body mass index (BMI) [Ratio] 18.8 kg/m2 Dr. Jacinda Benton MD Work Phone: [facility] 04-02-2025 19:21-0400 Body weight 51.[address] 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 Jacinda Benton MD Work Phone: [facility] 02-20-2025 09:08-0400 Body weight 53.[address] Jacinda Benton MD Work Phone: [facility] 02-20-2025 09:08-0400 Diastolic blood pressure 74 mm[Hg] Dr. Jacinda Benton MD Work Phone: [facility] 02-20-2025 09:08-0400 Heart rate 50 /min Dr. Jacinda Benton MD Work Phone: [facility] 02-20-2025 09:08-0400 Respiratory rate 18 /min Dr. Jacinda Benton MD Work Phone: [facility] 02-20-2025 09:08-0400 SaO2% (BldA) [Mass fraction] 100 % Dr. Jacinda Benton MD Work Phone: 7(858)391-108858 [place] [address] 02-20-2025 09:08-0400 Systolic blood pressure 121 mm[Hg] Dr. Jacinda Benton MD Work Phone: 2(321)181-074561 [place] [address] 01-13-2025 16:01-0500 Heart rate 59 /min Dr. Jacinda Benton MD Work Phone: 7(827)089-409261 [place] [address] 01-13-2025 16:01-0500 Respiratory rate 16 /min Dr. Jacinda Benton MD Work Phone: 6(638)828-780061 [place] [address] 01-13-2025 14:34-0500 Body temperature 98 [degF] Dr. Jacinda Benton MD Work Phone: 8(817)584-228561 [place] [address] 01-13-2025 14:34-0500 Diastolic blood pressure 95 mm[Hg] Dr. Jacinda Benton MD Work Phone: 1(255)561-702491 [address] 01-13-2025 14:34-0500 Inhaled oxygen flow rate 2 L/min Dr. Jacinda Benton MD Work Phone: 9(126)705-697361 [place] [address] 01-13-2025 14:34-0500 SaO2% (BldA) [Mass fraction] 94 % Dr. Jacinda Benton MD Work Phone: 2(484)322-644158 [place] [address] 01-13-2025 14:34-0500 Systolic blood pressure 111 mm[Hg] Dr. Jacinda Benton MD Work Phone: 2(717)183-350691 [address] 01-13-2025 04:47-0500 Body mass index (BMI) [Ratio] 18.9 kg/m2 Dr. Jacinda Benton MD Work Phone: 3(112)643-499461 [place] [address] 01-13-2025 04:47-0500 Body weight 51.[address] Jacinda Benton MD Work Phone: 0(004)994-778361 [place] [address] 12-24-2024 10:03-0500 Body mass index (BMI) [Ratio] 19.4 kg/m2 Dr. Jacinda Benton MD Work Phone: [facility] 12-24-2024 10:03-0500 Body temperature 96.7 [degF] Dr. Jacinda Benton MD Work Phone: [facility] 12-24-2024 10:03-0500 Body weight 53.[address] Jacinda Benton MD Work Phone: [facility] 12-24-2024 10:03-0500 Diastolic blood pressure 77 mm[Hg] Dr. Jacinda Benton MD Work Phone: 8(737)986-823758 [place] [address] 12-24-2024 10:03-0500 Heart rate 69 /min Dr. Jacinda Benton MD Work Phone: 5(599)644-750261 [place] [address] 12-24-2024 10:03-0500 Respiratory rate 18 /min Dr. Jacinda Benton MD Work Phone: 2(622)748-913091 [address] 12-24-2024 10:03-0500 SaO2% (BldA) [Mass fraction] 95 % Dr. Jacinda Benton MD Work Phone: 1(260)656-790791 [address] 12-24-2024 10:03-0500 Systolic blood pressure 132 mm[Hg] Dr. Jacinda Benton MD Work Phone: 8(659)897-240291 [address] 12-19-2024 13:20-0500 Body mass index (BMI) [Ratio] 19.4 kg/m2 Dr. Jacinda Benton MD Work Phone: 9(020)925-867858 [place] [address] 12-19-2024 13:20-0500 Body weight 53.[address] Jacinda Benton MD Work Phone: [facility] 12-19-2024 13:20-0500 Diastolic blood pressure 77 mm[Hg] Dr. Jacinda Benton MD Work Phone: 3(944)869-695558 [place] [address] 12-19-2024 13:20-0500 Heart rate 67 /min Dr. Jacinda Benton MD Work Phone: [facility] 12-19-2024 13:20-0500 Respiratory rate 18 /min Dr. Jacinda Benton MD Work Phone: [facility] 12-19-2024 13:20-0500 SaO2% (BldA) [Mass fraction] 96 % Dr. Jacinda Benton MD Work Phone: [facility] 12-19-2024 13:20-0500 Systolic blood pressure 124 mm[Hg] Dr. Jacinda Benton MD Work Phone: 4(677)021-745161 [place] [address] 12-17-2024 14:25-0500 Body temperature 97.8 [degF] Dr. Jacinda Benton MD Work Phone: 8(806)918-366661 [place] [address] 12-17-2024 14:25-0500 Diastolic blood pressure 94 mm[Hg] Dr. Jacinda Benton MD Work Phone: 3(262)431-090961 [place] [address] 12-17-2024 14:25-0500 Heart rate 65 /min Dr. Jacinda Benton MD Work Phone: 3(468)066-207361 [place] [address] 12-17-2024 14:25-0500 Respiratory rate 20 /min Dr. Jacinda Benton MD Work Phone: 3(083)389-417161 [place] [address] 12-17-2024 14:25-0500 SaO2% (BldA) [Mass fraction] 95 % Dr. Jacinda Benton MD Work Phone: 5(014)606-599461 [place] [address] 12-17-2024 14:25-0500 Systolic blood pressure 151 mm[Hg] Dr. Jacinda Benton MD Work Phone: 2(664)816-755961 [place] [address] 12-17-2024 10:13-0500 Body mass index (BMI) [Ratio] 19.5 kg/m2 Dr. Jacinda Benton MD Work Phone: 2(943)919-863991 [address] 12-17-2024 10:13-0500 Body weight 53.[address] Jacinda Benton MD Work Phone: 1(783)969-237661 [place] [address] 12-11-2024 13:50-0500 Body temperature 98 [degF] Dr. Jacinda Benton MD Work Phone: 8(154)000-058961 [place] [address] 12-11-2024 13:50-0500 Diastolic blood pressure 87 mm[Hg] Dr. Jacinda Benton MD Work Phone: [facility] 12-11-2024 13:50-0500 Heart rate 70 /min Dr. Jacinda Benton MD Work Phone: [facility] 12-11-2024 13:50-0500 Respiratory rate 16 /min Dr. Jacinda Benton MD Work Phone: 7(485)986-301158 [place] [address] 12-11-2024 13:50-0500 SaO2% (BldA) [Mass fraction] 96 % Dr. Jacinda Benton MD Work Phone: 5(866)699-087158 [place] [address] 12-11-2024 13:50-0500 Systolic blood pressure 139 mm[Hg] Dr. Jacinda Benton MD Work Phone: 0(542)630-767961 [place] [address] 12-10-2024 10:11-0500 Body weight 51.[address] Jacinda Benton MD Work Phone: 8(516)703-035061 [place] [address] 12-09-2024 18:00-0500 Inhaled oxygen flow rate 2 L/min Dr. Jacinda Benton MD Work Phone: 9(796)178-913361 [place] [address] 12-09-2024 14:59-0500 Body mass index (BMI) [Ratio] 18.8 kg/m2 Dr. Jacinda Benton MD Work Phone: 7(363)280-734061 [place] [address] 02-25-2024 17:00-0400 Body temperature 98.2 [degF] Dr. Jacinda Benton Work Phone: 2(820)403-517258 [place] [address] 02-25-2024 17:00-0400 Diastolic blood pressure 73 mm[Hg] Dr. Jacinda Benton Work Phone: 0(859)445-456858 [place] [address] 02-25-2024 17:00-0400 Heart rate 62 /min Dr. Jacinda Benton Work Phone: 9(038)834-751658 [place] [address] 02-25-2024 17:00-0400 Inhaled oxygen flow rate 2 L/min Dr. Jacinda Benton Work Phone: 5(258)144-536958 [place] [address] 02-25-2024 17:00-0400 Respiratory rate 16 /min Dr. Jacinda Benton Work Phone: 4(804)588-174258 [place] [address] 02-25-2024 17:00-0400 SaO2% (BldA) [Mass fraction] 98 % Dr. Jacinda Benton Work Phone: [facility] 02-25-2024 17:00-0400 Systolic blood pressure 136 mm[Hg] Dr. Jacinda Benton Work Phone: [facility] 02-24-2024 23:41-0400 Body height [address] Jacinda Benton Work Phone: [facility] 02-24-2024 23:41-0400 Body mass index (BMI) [Ratio] 19.8 kg/m2 Dr. Jacinda Benton Work Phone: [facility] 02-24-2024 23:41-0400 Body weight 55.[address] Jacinda Benton Work Phone: [facility] 02-19-2024 16:00-0400 Body temperature 97.5 [degF] Dr. Jacinda Benton Work Phone: [facility] 02-19-2024 16:00-0400 Diastolic blood pressure 71 mm[Hg] Dr. Jacinda Benton Work Phone: [facility] 02-19-2024 16:00-0400 Heart rate 68 /min Dr. Jacinda Benton Work Phone: [facility] 02-19-2024 16:00-0400 Respiratory rate 17 /min Dr. Jacinda Benton Work Phone: [facility] 02-19-2024 16:00-0400 SaO2% (BldA) [Mass fraction] 92 % Dr. Jacinda Benton Work Phone: [facility] 02-19-2024 16:00-0400 Systolic blood pressure 124 mm[Hg] Dr. Jacinda Benton Work Phone: [facility] 02-19-2024 10:52-0400 Body height 167.[address] Jacinda Benton Work Phone: [facility] 02-19-2024 10:52-0400 Body mass index (BMI) [Ratio] 21.8 kg/m2 Dr. Jacinda Benton Work Phone: [facility] 02-19-2024 10:52-0400 Body weight 61.[address] Jacinda Benton Work Phone: [facility] 01-18-2024 11:47-0500 Body temperature 97.7 [degF] Dr. Jacinda Benton Work Phone: [facility] 01-18-2024 11:47-0500 Diastolic blood pressure 70 mm[Hg] Dr. Jacinda Benton Work Phone: [facility] 01-18-2024 11:47-0500 Heart rate 62 /min Dr. Jacinda Benton Work Phone: [facility] 01-18-2024 11:47-0500 Respiratory rate 18 /min Dr. Jacinda Benton Work Phone: [facility] 01-18-2024 11:47-0500 SaO2% (BldA) [Mass fraction] 95 % Dr. Jacinda Benton Work Phone: [facility] 01-18-2024 11:47-0500 Systolic blood pressure 121 mm[Hg] Dr. Jacinda Benton Work Phone: [facility] 01-18-2024 10:23-0500 Body height 165.[address] Jacinda Benton Work Phone: [facility] 01-18-2024 10:23-0500 Body mass index (BMI) [Ratio] 20.4 kg/m2 Dr. Jacinda Benton Work Phone: [facility] 01-18-2024 10:23-0500 Body weight 55.[address] Jacinda Benton Work Phone: [facility] 01-11-2024 08:22-0500 Diastolic blood pressure 57 mm[Hg] Dr. Jacinda Benton Work Phone: [facility] 01-11-2024 08:22-0500 Systolic blood pressure 132 mm[Hg] Dr. Jacinda Benton Work Phone: [facility] 01-11-2024 08:13-0500 Body temperature 98.5 [degF] Dr. Jacinda Benton Work Phone: [facility] 01-11-2024 08:13-0500 Heart rate 61 /min Dr. Jacinda Benton Work Phone: [facility] 01-11-2024 08:13-0500 Respiratory rate 16 /min Dr. Jacinda Benton Work Phone: [facility] 01-11-2024 08:13-0500 SaO2% (BldA) [Mass fraction] 98 % Dr. Jacinda Benton Work Phone: 5(997)440-762191 [address] 01-11-2024 06:51-0500 Inhaled oxygen flow rate 2 L/min Dr. Jacinda Benton Work Phone: 4(469)747-078258 [place] [address] 01-11-2024 02:14-0500 Body height 165.[address] Jacinda Benton Work Phone: [facility] 01-11-2024 02:14-0500 Body mass index (BMI) [Ratio] 20.1 kg/m2 Dr. Jacinda Benton Work Phone: [facility] 01-11-2024 02:14-0500 Body weight [address] Jacinda Benton Work Phone: 7(033)708-173058 [place] [address] 12-21-2023 12:53-0500 Body mass index (BMI) [Ratio] 20.5 kg/m2 Dr. Jacinda Benton Work Phone: [facility] 12-21-2023 12:53-0500 Body weight 55.[address] Jacinda Benton Work Phone: 0(990)425-505258 [place] [address] 12-21-2023 12:53-0500 Diastolic blood pressure 89 mm[Hg] Dr. Jacinda Benton Work Phone: [facility] 12-21-2023 12:53-0500 Heart rate 50 /min Dr. Jacinda Benton Work Phone: [facility] 12-21-2023 12:53-0500 Respiratory rate 18 /min Dr. Jacinda Benton Work Phone: [facility] 12-21-2023 12:53-0500 SaO2% (BldA) [Mass fraction] 100 % Dr. Jacinda Benton Work Phone: [facility] 12-21-2023 12:53-0500 Systolic blood pressure 193 mm[Hg] Dr. Jacinda Benton Work Phone: [facility] 12-14-2023 13:43-0500 Body mass index (BMI) [Ratio] 19.37 kg/m2 Lizz Lynn [employer] Work Phone: [facility] 12-14-2023 13:43-0500 Body weight 54.43 kg Lizz Lynn [employer] Work Phone: [facility] 12-14-2023 13:43-0500 Diastolic blood pressure 78 mm[Hg] Lizz Navas [employer] Work Phone: [facility] 12-14-2023 13:43-0500 Heart rate 66 /min Lizz Lynn [employer] Work Phone: [facility] 12-14-2023 13:43-0500 Systolic blood pressure 186 mm[Hg] Lizz Shane [employer] - [employer] Work Phone: [facility] 12-07-2023 14:27-0500 Body temperature 97.4 [degF] Dr. Jacinda Benton Work Phone: [facility] 12-07-2023 14:27-0500 Diastolic blood pressure 79 mm[Hg] Dr. Jacinda Benton Work Phone: [facility] 12-07-2023 14:27-0500 Heart rate 50 /min Dr. Jacinda Benton Work Phone: [facility] 12-07-2023 14:27-0500 Respiratory rate 12 /min Dr. Jacinda Benton Work Phone: [facility] 12-07-2023 14:27-0500 SaO2% (BldA) [Mass fraction] 98 % Dr. Jacinda Benton Work Phone: [facility] 12-07-2023 14:27-0500 Systolic blood pressure 140 mm[Hg] Dr. Jacinda Benton Work Phone: [facility] 12-06-2023 16:45-0500 Body height 165.[address] Jacinda Benton Work Phone: [facility] 12-06-2023 16:45-0500 Body weight [address] Jacinda Benton Work Phone: 0(837)083-177391 [address] 12-04-2023 07:00-0500 Inhaled oxygen flow rate 1 L/min Dr. Jacinda Benton Work Phone: [facility] 12-02-2023 12:37-0500 Body mass index (BMI) [Ratio] 20.5 kg/m2 Dr. Jacinda Benton Work Phone: 3(374)405-472558 [place] [address] 12-02-2023 11:40-0500 Diastolic blood pressure 48 mm[Hg] Dr. Jacinda Benton Work Phone: 0(973)615-291458 [place] [address] 12-02-2023 11:40-0500 Heart rate 48 /min Dr. Jacinda Benton Work Phone: [facility] 12-02-2023 11:40-0500 Respiratory rate 15 /min Dr. Jacinda Benton Work Phone: [facility] 12-02-2023 11:40-0500 SaO2% (BldA) [Mass fraction] 94 % Dr. Jacinda Benton Work Phone: [facility] 12-02-2023 11:40-0500 Systolic blood pressure 176 mm[Hg] Dr. Jacinda Benton Work Phone: [facility] 12-02-2023 06:33-0500 Body height 165.[address] Jacinda Benton Work Phone: [facility] 12-02-2023 06:33-0500 Body mass index (BMI) [Ratio] 20.5 kg/m2 Dr. Jacinda Benton Work Phone: [facility] 12-02-2023 06:33-0500 Body temperature 97.6 [degF] Dr. Jacinda Benton Work Phone: [facility] 12-02-2023 06:33-0500 Body weight [address] Jacinda Benton Work Phone: [facility] 11-27-2023 12:32-0500 Body height 165.[address] Jacinda Benton Work Phone: [facility] 11-27-2023 09:46-0500 SaO2% (BldA) [Mass fraction] 96 % Dr. Jacinda Benton Work Phone: [facility] 11-27-2023 09:32-0500 Body temperature 98 [degF] Dr. Jacinda Benton Work Phone: 9(976)720-294358 [place] [address] 11-27-2023 09:32-0500 Diastolic blood pressure 97 mm[Hg] Dr. Jacinda Benton Work Phone: 2(920)530-803658 [place] [address] 11-27-2023 09:32-0500 Heart rate 52 /min Dr. Jacinda Benton Work Phone: 2(161)777-923491 [address] 11-27-2023 09:32-0500 Respiratory rate 14 /min Dr. Jacinda Benton Work Phone: 2(433)826-176191 [address] 11-27-2023 09:32-0500 Systolic blood pressure 196 mm[Hg] Dr. Jacinda Benton Work Phone: [facility] 11-27-2023 09:01-0500 Body mass index (BMI) [Ratio] 20 kg/m2 Dr. Jacinda Benton Work Phone: [facility] 11-27-2023 09:01-0500 Body weight 54.[address] Jacinda Benton Work Phone: [facility] 11-26-2023 15:22-0500 Diastolic blood pressure 81 mm[Hg] Dr. Jacinda Benton Work Phone: 6(053)932-258158 [place] [address] 11-26-2023 15:22-0500 Heart rate 69 /min Dr. Jaicnda Benton Work Phone: [facility] 11-26-2023 15:22-0500 Respiratory rate 16 /min Dr. Jacinda Benton Work Phone: [facility] 11-26-2023 15:22-0500 SaO2% (BldA) [Mass fraction] 96 % Dr. Jacinda Benton Work Phone: [facility] 11-26-2023 15:22-0500 Systolic blood pressure 149 mm[Hg] Dr. Jacinda Benton Work Phone: [facility] 11-26-2023 12:47-0500 Body height 165.[address] Jacinda Benton Work Phone: [facility] 11-26-2023 12:47-0500 Body mass index (BMI) [Ratio] 20.2 kg/m2 Dr. Jacinda Benton Work Phone: [facility] 11-26-2023 12:47-0500 Body temperature 97 [degF] Dr. Jacinda Benton Work Phone: 1(552)379-287958 [place] [address] 11-26-2023 12:47-0500 Body weight 55.[address] Jacinda Benton Work Phone: [facility] 11-21-2023 11:50-0500 Body temperature 98.3 [degF] Dr. Jacinda Benton Work Phone: [facility] 11-21-2023 11:50-0500 Diastolic blood pressure 72 mm[Hg] Dr. Jacinad Benton Work Phone: [facility] 11-21-2023 11:50-0500 Heart rate 54 /min Dr. Jacinda Benton Work Phone: [facility] 11-21-2023 11:50-0500 Respiratory rate 16 /min Dr. Jacinda Benton Work Phone: [facility] 11-21-2023 11:50-0500 SaO2% (BldA) [Mass fraction] 94 % Dr. Jacinda Benton Work Phone: [facility] 11-21-2023 11:50-0500 Systolic blood pressure 134 mm[Hg] Dr. Jacinda Benton Work Phone: [facility] 11-21-2023 05:35-0500 Body mass index (BMI) [Ratio] 20.4 kg/m2 Dr. Jacinda Benton Work Phone: [facility] 11-21-2023 05:35-0500 Body weight 55.[address] Jacinda Benton Work Phone: [facility] 11-18-2023 15:44-0500 Body height 165.[address] Jacinda Benton Work Phone: [facility] 11-18-2023 15:18-0500 Body temperature 98.2 [degF] Dr. Jacinda Benton Work Phone: [facility] 11-18-2023 15:18-0500 Diastolic blood pressure 75 mm[Hg] Dr. Jacinda Benton Work Phone: [facility] 11-18-2023 15:18-0500 Heart rate 72 /min Dr. Jacinda Benton Work Phone: [facility] 11-18-2023 15:18-0500 Respiratory rate 17 /min Dr. Jacinda Benton Work Phone: [facility] 11-18-2023 15:18-0500 SaO2% (BldA) [Mass fraction] 93 % Dr. Jacinda Benton Work Phone: [facility] 11-18-2023 15:18-0500 Systolic blood pressure 161 mm[Hg] Dr. Jacinda Benton Work Phone: [facility] 11-18-2023 11:43-0500 Body height 165.[address] Jacinda Benton Work Phone: [facility] 11-18-2023 11:43-0500 Body mass index (BMI) [Ratio] 20.9 kg/m2 Dr. Jacinda Benton Work Phone: [facility] 11-18-2023 11:43-0500 Body weight 57.[address] Jacinda Benton Work Phone: [facility] 11-16-2023 11:05-0500 Body height 165.[address] Jacinda Benton Work Phone: [facility] 11-16-2023 11:05-0500 Body weight 54.[address] Jacinda Benton Work Phone: [facility] 11-16-2023 09:53-0500 Heart rate 66 /min Dr. Jacinda Benton Work Phone: [facility] 11-16-2023 09:31-0500 Body temperature 97.7 [degF] Dr. Jacinda Benton Work Phone: [facility] 11-16-2023 09:31-0500 Diastolic blood pressure 71 mm[Hg] Dr. Jacinda Benton Work Phone: [facility] 11-16-2023 09:31-0500 Respiratory rate 16 /min Dr. Jacinda Benton Work Phone: [facility] 11-16-2023 09:31-0500 SaO2% (BldA) [Mass fraction] 96 % Dr. Jacinda Benton Work Phone: [facility] 11-16-2023 09:31-0500 Systolic blood pressure 138 mm[Hg] Dr. Jacinda Benton Work Phone: [facility] 11-16-2023 01:54-0500 Body mass index (BMI) [Ratio] 19.9 kg/m2 Dr. Jacinda Benton Work Phone: [facility] 11-15-2023 15:21-0500 Diastolic blood pressure 49 mm[Hg] Dr. Jacinda Benton Work Phone: [facility] 11-15-2023 15:21-0500 Heart rate 60 /min Dr. Jacinda Benton Work Phone: [facility] 11-15-2023 15:21-0500 Respiratory rate 18 /min Dr. Jacinda Benton Work Phone: [facility] 11-15-2023 15:21-0500 SaO2% (BldA) [Mass fraction] 98 % Dr. Jacinda Benton Work Phone: [facility] 11-15-2023 15:21-0500 Systolic blood pressure 119 mm[Hg] Dr. Jacinda Benton Work Phone: [facility] 11-15-2023 13:28-0500 Body temperature 97.8 [degF] Dr. Jacinda Benton Work Phone: 6(629)711-545591 [address] 11-15-2023 11:22-0500 Body height 165.[address] Jacinda Benton Work Phone: 0(897)064-739591 [address] 11-15-2023 11:22-0500 Body mass index (BMI) [Ratio] 21.3 kg/m2 Dr. Jacinda Benton Work Phone: 1(803)988-755058 [place] [address] 11-15-2023 11:22-0500 Body weight 58.[address] Jacinda Benton Work Phone: 5(871)641-234358 [place] [address] 11-02-2023 13:04-0500 Body mass index (BMI) [Ratio] 20.5 kg/m2 Dr. Jacinda Benton Work Phone: [facility] 11-02-2023 13:04-0500 Body weight 55.[address] Jacinda Benton Work Phone: [facility] 11-02-2023 13:04-0500 Diastolic blood pressure 68 mm[Hg] Dr. Jacinda Benton Work Phone: [facility] 11-02-2023 13:04-0500 Heart rate 89 /min Dr. Jacinda Benton Work Phone: [facility] 11-02-2023 13:04-0500 Respiratory rate 18 /min Dr. Jacinda Benton Work Phone: [facility] 11-02-2023 13:04-0500 SaO2% (BldA) [Mass fraction] 100 % Dr. Jacinda Benton Work Phone: [facility] 11-02-2023 13:04-0500 Systolic blood pressure 109 mm[Hg] Dr. Jacinda Benton Work Phone: [facility] 10-05-2023 08:07-0500 Diastolic blood pressure 82 mm[Hg] Dr. Jacinda Benton Work Phone: [facility] 10-05-2023 08:07-0500 Respiratory rate 16 /min Dr. Jacinda Benton Work Phone: [facility] 10-05-2023 08:07-0500 SaO2% (BldA) [Mass fraction] 96 % Dr. Jacinda Benton Work Phone: [facility] 10-05-2023 08:07-0500 Systolic blood pressure 214 mm[Hg] Dr. Jacinda Benton Work Phone: [facility] 10-05-2023 00:43-0500 Body height 165.[address] Jacinda Benton Work Phone: [facility] 10-05-2023 00:43-0500 Body mass index (BMI) [Ratio] 21.7 kg/m2 Dr. Jacinda Benton Work Phone: [facility] 10-05-2023 00:43-0500 Body temperature 97.8 [degF] Dr. Jacinda Benton Work Phone: [facility] 10-05-2023 00:43-0500 Body weight 59.[address] Jacinda Benton Work Phone: [facility] 10-05-2023 00:43-0500 Heart rate 55 /min Dr. Jacinda Benton Work Phone: [facility] 05-24-2023 11:16-0400 Body weight 52.[address] Jacinda Benton Work Phone: [facility] 05-24-2023 11:16-0400 Diastolic blood pressure 86 mm[Hg] Dr. Jacinda Benton Work Phone: [facility] 05-24-2023 11:16-0400 Heart rate 56 /min Dr. Jacinda Benton Work Phone: [facility] 05-24-2023 11:16-0400 Respiratory rate 20 /min Dr. Jacinda Benton Work Phone: [facility] 05-24-2023 11:16-0400 Systolic blood pressure 120 mm[Hg] Dr. Jacinda Benton Work Phone: [facility] 05-24-2023 09:19-0400 Body height 165.[address] Jacinda Benton Work Phone: [facility] 04-08-2023 12:14-0400 Diastolic blood pressure 87 mm[Hg] Dr. Jacinda Benton Work Phone: [facility] 04-08-2023 12:14-0400 Heart rate 50 /min Dr. Jacinda Benton Work Phone: [facility] 04-08-2023 12:14-0400 Respiratory rate 12 /min Dr. Jacinda Benton Work Phone: [facility] 04-08-2023 12:14-0400 SaO2% (BldA) [Mass fraction] 98 % Dr. Jacinda Benton Work Phone: [facility] 04-08-2023 12:14-0400 Systolic blood pressure 162 mm[Hg] Dr. Jacinda Benton Work Phone: [facility] 04-08-2023 09:19-0400 Body height 165.[address] Jacinda Benton Work Phone: [facility] 04-08-2023 09:19-0400 Body mass index (BMI) [Ratio] 19.1 kg/m2 Dr. Jacinda Benton Work Phone: [facility] 04-08-2023 09:19-0400 Body temperature 97.5 [degF] Dr. Jacinda Benton Work Phone: [facility] 04-08-2023 09:19-0400 Body weight [address] Jacinda Benton Work Phone: [facility] 03-31-2023 15:10-0400 Diastolic blood pressure 82 mm[Hg] Dr. Jacinda Benton Work Phone: 9(898)632-886161 [place] [address] 03-31-2023 15:10-0400 Heart rate 45 /min Dr. Jacinda Benton Work Phone: 0(860)695-382361 [place] [address] 03-31-2023 15:10-0400 Respiratory rate 16 /min Dr. Jacinda Benton Work Phone: 7(641)685-936061 [place] [address] 03-31-2023 15:10-0400 SaO2% (BldA) [Mass fraction] 100 % Dr. Jacinda Benton Work Phone: 4(787)263-879761 [place] [address] 03-31-2023 15:10-0400 Systolic blood pressure 198 mm[Hg] Dr. Jacinda Benton Work Phone: 5(917)462-867861 [place] [address] 03-31-2023 12:40-0400 Body mass index (BMI) [Ratio] 19.5 kg/m2 Dr. Jacinda Benton Work Phone: 4(618)237-940961 [place] [address] 03-31-2023 12:40-0400 Body weight 53.[address] Jacinda Benton Work Phone: 5(947)534-238561 [place] [address] 03-31-2023 12:33-0400 Body height 165.[address] Jacinda Benton Work Phone: 8(704)817-260461 [place] [address] 03-31-2023 12:33-0400 Body temperature 96.9 [degF] Dr. Jacinda Benton Work Phone: 9(083)715-088561 [place] [address] 03-16-2023 12:26-0400 Body height 165.[address] Jacinda Benton Work Phone: 2(767)530-145761 [place] [address] 03-16-2023 12:26-0400 Body mass index (BMI) [Ratio] 19.1 kg/m2 Dr. Jacinda Benton Work Phone: 3(481)645-315061 [place] [address] 03-16-2023 12:26-0400 Body temperature 97.3 [degF] Dr. Jacinda Benton Work Phone: 2(412)925-513461 [place] [address] 03-16-2023 12:26-0400 Body weight 52.[address] Jacinda Benton Work Phone: [facility] 03-16-2023 12:26-0400 Diastolic blood pressure 85 mm[Hg] Dr. Jacinda Benton Work Phone: [facility] 03-16-2023 12:26-0400 Heart rate 58 /min Dr. Jacinda Benton Work Phone: [facility] 03-16-2023 12:26-0400 Respiratory rate 14 /min Dr. Jacinda Benton Work Phone: [facility] 03-16-2023 12:26-0400 SaO2% (BldA) [Mass fraction] 100 % Dr. Jacinda Benton Work Phone: [facility] 03-16-2023 12:26-0400 Systolic blood pressure 163 mm[Hg] Dr. Jacinda Benton Work Phone: [facility] 11-24-2022 18:46-0500 Body height 167.[address] Jacinda Benton Work Phone: [facility] 11-24-2022 18:46-0500 Body mass index (BMI) [Ratio] 19.3 kg/m2 Dr. Jacinda Benton Work Phone: [facility] 11-24-2022 18:46-0500 Body temperature 97.2 [degF] Dr. Jacinda Benton Work Phone: [facility] 11-24-2022 18:46-0500 Body weight 54.[address] Jacinda Benton Work Phone: [facility] 11-24-2022 18:46-0500 Diastolic blood pressure 106 mm[Hg] Dr. Jacinda Benton Work Phone: [facility] 11-24-2022 18:46-0500 Heart rate 61 /min Dr. Jacinda Benton Work Phone: [facility] 11-24-2022 18:46-0500 Respiratory rate 18 /min Dr. Jacinda Benton Work Phone: [facility] 11-24-2022 18:46-0500 SaO2% (BldA) [Mass fraction] 100 % Dr. Jacinda Benton Work Phone: [facility] 11-24-2022 18:46-0500 Systolic blood pressure 159 mm[Hg] Dr. Jacidna Benton Work Phone: [facility] 11-09-2022 14:07-0500 Diastolic Blood Pressure Non-Invasive 66 1 TYE BARNETT MD [facility] 11-09-2022 14:07-0500 Heart rate 56 /min TYE BARNETT MD [facility] 11-09-2022 14:07-0500 Systolic Blood Pressure Non-Invasive 155 1 TYE BARNETT MD [facility] 11-09-2022 13:42-0500 Diastolic Blood Pressure Non-Invasive 69 1 TYE BARNETT MD [facility] 11-09-2022 13:42-0500 Heart rate 58 /min TYE BARNETT MD [facility] 11-09-2022 13:42-0500 Systolic Blood Pressure Non-Invasive 156 1 TYE BARNETT MD [facility] 11-09-2022 13:14-0500 Diastolic Blood Pressure Non-Invasive 86 1 TYE BARNETT MD [facility] 11-09-2022 13:14-0500 Heart rate 54 /min TYE BARNETT MD [facility] 11-09-2022 13:14-0500 Systolic Blood Pressure Non-Invasive 175 1 TYE BARNETT MD [facility] 11-09-2022 11:25-0500 Reason For Taking VItal Signs TYE BARNETT MD [facility] 11-09-2022 11:25-0500 Respiratory rate 16 /min TYE BARNETT MD [facility] 11-09-2022 11:03-0500 Respiratory rate 16 /min TYE BARNETT MD [facility] 11-09-2022 10:38-0500 Respiratory rate 16 /min TYE BARNETT MD [facility] 11-09-2022 06:29-0500 Blood Pressure Location TYE BARNETT MD [facility] 11-09-2022 06:29-0500 Body height 167.6 cm TYE BARNETT MD [facility] 11-09-2022 06:29-0500 Body temperature 97.7 [degF] TYE BARNETT MD [facility] 11-09-2022 06:29-0500 Body weight 54.8 kg TYE BARNETT MD [facility] 11-09-2022 06:29-0500 Body weight 19.51 kg/m2 TYE BARNETT MD [facility] 10-26-2022 13:20-0500 Body mass index (BMI) [Ratio] 19 kg/m2 Dr. Jacinda Benton Work Phone: [facility] 10-26-2022 13:20-0500 Body weight 53.[address] Jacinda Benton Work Phone: [facility] 10-26-2022 13:20-0500 Diastolic blood pressure 70 mm[Hg] Dr. Jacinda Benton Work Phone: [facility] 10-26-2022 13:20-0500 Heart rate 51 /min Dr. Jacinda Benton Work Phone: [facility] 10-26-2022 13:20-0500 Respiratory rate 18 /min Dr. Jacinda Benton Work Phone: [facility] 10-26-2022 13:20-0500 SaO2% (BldA) [Mass fraction] 100 % Dr. Jacinda Benton Work Phone: [facility] 10-26-2022 13:20-0500 Systolic blood pressure 129 mm[Hg] Dr. Jacinda Benton Work Phone: [facility] 05-16-2022 12:37-0400 Body height 167.[address] Jacinda Benton Work Phone: [facility] Work Phone: 05-16-2022 12:37-0400 Body mass index (BMI) [Ratio] 19.5 kg/m2 Dr. Jacinda Benton Work Phone: [facility] Work Phone: 05-16-2022 12:37-0400 Body weight 54.[address] Jacinda Benton Work Phone: [facility] Work Phone: 05-16-2022 12:37-0400 Diastolic blood pressure 75 mm[Hg] Dr. Jacinda Benton Work Phone: [facility] Work Phone: 05-16-2022 12:37-0400 Heart rate 57 /min Dr. Jacinda Benton Work Phone: [facility] Work Phone: 05-16-2022 12:37-0400 Respiratory rate 18 /min Dr. Jacinda Benton Work Phone: [facility] Work Phone: 05-16-2022 12:37-0400 SaO2% (BldA) [Mass fraction] 98 % Dr. Jacinda Benton Work Phone: [facility] Work Phone: 05-16-2022 12:37-0400 Systolic blood pressure 115 mm[Hg] Dr. Jacinda Benton Work Phone: [facility] Work Phone: 02-22-2022 10:52-0400 Body height 167.[address] Jacinda Benton Work Phone: [facility] Work Phone: 02-22-2022 10:52-0400 Body mass index (BMI) [Ratio] 20.1 kg/m2 Dr. Jacinda Benton Work Phone: [facility] Work Phone: 02-22-2022 10:52-0400 Body weight 56.[address] Jacinda Benton Work Phone: [facility] Work Phone: 02-22-2022 10:52-0400 Diastolic blood pressure 94 mm[Hg] Dr. Jacinda Benton Work Phone: [facility] Work Phone: 02-22-2022 10:52-0400 Heart rate 56 /min Dr. Jacinda Benton Work Phone: [facility] Work Phone: 02-22-2022 10:52-0400 Respiratory rate 18 /min Dr. Jacinda Benton Work Phone: [facility] Work Phone: 02-22-2022 10:52-0400 SaO2% (BldA) [Mass fraction] 96 % Dr. Jacinda Benton Work Phone: [facility] Work Phone: 02-22-2022 10:52-0400 Systolic blood pressure 169 mm[Hg] Dr. Jacinda Benton Work Phone: [facility] Work Phone: 02-20-2022 19:23-0400 Diastolic blood pressure 89 mm[Hg] Dr. Jacinda Benton Work Phone: [facility] Work Phone: 02-20-2022 19:23-0400 Heart rate 67 /min Dr. Jacinda Benton Work Phone: [facility] Work Phone: 02-20-2022 19:23-0400 Respiratory rate 15 /min Dr. Jacidna Benton Work Phone: [facility] Work Phone: 02-20-2022 19:23-0400 SaO2% (BldA) [Mass fraction] 97 % Dr. Jacinda Benton Work Phone: [facility] Work Phone: 02-20-2022 19:23-0400 Systolic blood pressure 172 mm[Hg] Dr. Jacinda Benton Work Phone: [facility] Work Phone: 02-20-2022 16:38-0400 Body mass index (BMI) [Ratio] 20.6 kg/m2 Dr. Jacinda Benton Work Phone: [facility] Work Phone: 02-20-2022 16:38-0400 Body temperature 96.5 [degF] Dr. Jacinda Benton Work Phone: [facility] Work Phone: 02-20-2022 16:38-0400 Body weight 58.[address] Jacinda Benton Work Phone: [facility] Work Phone: 02-18-2022 07:24-0400 Diastolic blood pressure 84 mm[Hg] Dr. Jacinda Benton Work Phone: [facility] Work Phone: 02-18-2022 07:24-0400 Heart rate 82 /min Dr. Jacinda Benton Work Phone: [facility] Work Phone: 02-18-2022 07:24-0400 Respiratory rate 16 /min Dr. Jacinda Benton Work Phone: [facility] Work Phone: 02-18-2022 07:24-0400 SaO2% (BldA) [Mass fraction] 98 % Dr. Jacinda Benton Work Phone: [facility] Work Phone: 02-18-2022 07:24-0400 Systolic blood pressure 145 mm[Hg] Dr. Jacinda Benton Work Phone: [facility] Work Phone: 02-18-2022 04:09-0400 Body height 167.[address] Jacinda Benton Work Phone: [facility] Work Phone: 02-18-2022 04:09-0400 Body mass index (BMI) [Ratio] 21.2 kg/m2 Dr. Jacinda Benton Work Phone: [facility] Work Phone: 02-18-2022 04:09-0400 Body temperature 97 [degF] Dr. Jacinda Benton Work Phone: [facility] Work Phone: 02-18-2022 04:09-0400 Body weight 59.[address] Jacinda Benton Work Phone: [facility] Work Phone: 02-17-2022 22:28-0400 Diastolic blood pressure 87 mm[Hg] Dr. Jacinda Benton Work Phone: [facility] Work Phone: 02-17-2022 22:28-0400 Heart rate 82 /min Dr. Jacinda Benton Work Phone: [facility] Work Phone: 02-17-2022 22:28-0400 Respiratory rate 15 /min Dr. Jacinda Benton Work Phone: [facility] Work Phone: 02-17-2022 22:28-0400 SaO2% (BldA) [Mass fraction] 98 % Dr. Jacinda Benton Work Phone: [facility] Work Phone: 02-17-2022 22:28-0400 Systolic blood pressure 145 mm[Hg] Dr. Jacinda Benton Work Phone: [facility] Work Phone: 02-17-2022 21:33-0400 Body height 167.[address] Jacinda Benton Work Phone: [facility] Work Phone: 02-17-2022 21:33-0400 Body mass index (BMI) [Ratio] 20.6 kg/m2 Dr. Jacinda Benton Work Phone: [facility] Work Phone: 02-17-2022 21:33-0400 Body temperature 98.1 [degF] Dr. Jacinda Benton Work Phone: [facility] Work Phone: 02-17-2022 21:33-0400 Body weight 58.[address] Jacinda Benton Work Phone: [facility] Work Phone: 02-14-2022 23:00-0400 Diastolic blood pressure 78 mm[Hg] Dr. Jacinda Benton Work Phone: [facility] Work Phone: 02-14-2022 23:00-0400 Heart rate 78 /min Dr. Jacinda Benton Work Phone: [facility] Work Phone: 02-14-2022 23:00-0400 Respiratory rate 16 /min Dr. Jacinda Benton Work Phone: [facility] Work Phone: 02-14-2022 23:00-0400 SaO2% (BldA) [Mass fraction] 97 % Dr. Jacinda Benton Work Phone: [facility] Work Phone: 02-14-2022 23:00-0400 Systolic blood pressure 159 mm[Hg] Dr. Jacinda Benton Work Phone: [facility] Work Phone: 02-14-2022 15:46-0400 Body mass index (BMI) [Ratio] 22 kg/m2 Dr. Jacinda Benton Work Phone: [facility] Work Phone: 02-14-2022 15:46-0400 Body temperature 98.2 [degF] Dr. Jacinda Benton Work Phone: [facility] Work Phone: 02-14-2022 15:46-0400 Body weight 61.[address] Jacinda Benton Work Phone: [facility] Work Phone: 02-08-2022 12:58-0400 Body mass index (BMI) [Ratio] 20.5 kg/m2 Dr. Jacinda Benton Work Phone: [facility] Work Phone: 02-08-2022 12:58-0400 Body weight 57.[address] Jacinda Benton Work Phone: [facility] Work Phone: 02-08-2022 12:58-0400 Diastolic blood pressure 76 mm[Hg] Dr. Jacinda Benton Work Phone: [facility] Work Phone: 02-08-2022 12:58-0400 Heart rate 51 /min Dr. Jacinda Benton Work Phone: [facility] Work Phone: 02-08-2022 12:58-0400 Respiratory rate 18 /min Dr. Jacinda Benton Work Phone: [facility] Work Phone: 02-08-2022 12:58-0400 SaO2% (BldA) [Mass fraction] 99 % Dr. Jacinda Benton Work Phone: [facility] Work Phone: 02-08-2022 12:58-0400 Systolic blood pressure 136 mm[Hg] Dr. Jacinda Benton Work Phone: [facility] Work Phone: 02-08-2022 12:58-0400 Body mass index (BMI) [Ratio] 20.5 kg/m2 Dr. Jacinda Benton Work Phone: [facility] Work Phone: 02-08-2022 12:58-0400 Body weight 57.[address] Jacinda Benton Work Phone: [facility] Work Phone: 02-08-2022 12:58-0400 Diastolic blood pressure 76 mm[Hg] Dr. Jacinda Benton Work Phone: [facility] Work Phone: 02-08-2022 12:58-0400 Heart rate 51 /min Dr. Jacinda Benton Work Phone: [facility] Work Phone: 02-08-2022 12:58-0400 Respiratory rate 18 /min Dr. Jacinda Benton Work Phone: [facility] Work Phone: 02-08-2022 12:58-0400 SaO2% (BldA) [Mass fraction] 99 % Dr. Jacinda Benton Work Phone: [facility] Work Phone: 02-08-2022 12:58-0400 Systolic blood pressure 136 mm[Hg] Dr. Jacinda Benton Work Phone: [facility] Work Phone: 01-23-2022 10:55-0500 Body mass index (BMI) [Ratio] 21 kg/m2 Dr. Jacinda Benton Work Phone: [facility] Work Phone: 01-23-2022 10:55-0500 Body temperature 97.3 [degF] Dr. Jacinda Benton Work Phone: [facility] Work Phone: 01-23-2022 10:55-0500 Body weight 59.[address] Jacinda Benton Work Phone: [facility] Work Phone: 01-23-2022 10:55-0500 Diastolic blood pressure 105 mm[Hg] Dr. Jacinda Benton Work Phone: [facility] Work Phone: 01-23-2022 10:55-0500 Heart rate 54 /min Dr. Jacinda Benton Work Phone: [facility] Work Phone: 01-23-2022 10:55-0500 Respiratory rate 16 /min Dr. Jacinda Benton Work Phone: [facility] Work Phone: 01-23-2022 10:55-0500 SaO2% (BldA) [Mass fraction] 96 % Dr. Jacinda Benton Work Phone: [facility] Work Phone: 01-23-2022 10:55-0500 Systolic blood pressure 194 mm[Hg] Dr. Jacinda Benton Work Phone: [facility] Work Phone: 01-23-2022 09:55-0500 Body mass index (BMI) [Ratio] 21 kg/m2 Dr. Jacinda Benton Work Phone: [facility] Work Phone: 01-23-2022 09:55-0500 Body temperature 97.3 [degF] Dr. Jacinda Benton Work Phone: [facility] Work Phone: 01-23-2022 09:55-0500 Body weight 59.[address] Jacinda Benton Work Phone: [facility] Work Phone: 01-23-2022 09:55-0500 Diastolic blood pressure 105 mm[Hg] Dr. Jacinda Benton Work Phone: [facility] Work Phone: 01-23-2022 09:55-0500 Heart rate 54 /min Dr. Jacinda Benton Work Phone: [facility] Work Phone: 01-23-2022 09:55-0500 Respiratory rate 16 /min Dr. Jacinda Benton Work Phone: [facility] Work Phone: 01-23-2022 09:55-0500 SaO2% (BldA) [Mass fraction] 96 % Dr. Jacinda Benton Work Phone: [facility] Work Phone: 01-23-2022 09:55-0500 Systolic blood pressure 194 mm[Hg] Dr. Jacinda Benton Work Phone: [facility] Work Phone: 01-18-2022 07:11-0500 Body weight 56.[address] Jacinda Benton Work Phone: [facility] Work Phone: 01-18-2022 06:11-0500 Body weight 56.[address] Jacinda Benton Work Phone: [facility] Work Phone: 01-17-2022 08:23-0500 Body mass index (BMI) [Ratio] 20.7 kg/m2 Dr. Jacinda Benton Work Phone: [facility] Work Phone: 01-17-2022 07:23-0500 Body mass index (BMI) [Ratio] 20.7 kg/m2 Dr. Jacinda Benton Work Phone: [facility] Work Phone: Encounters Encounter Date Encounter Type Care Provider Facility Start: 07-23-2025 End: 07-23-2025 Office outpatient visit 15 minutes Lizz Ayala CNP Work Phone: [facility] Comment on above: Multiple sclerosis ( HCC) Start: 07-23-2025 End: 07-23-2025 ambulatory JACINDA BENTON [facility] Start: 07-22-2025 End: 07-23-2025 Dr. Jacinda Benton MD Work Phone: -Emergency Department Work Phone: Start: 07-22-2025 End: 07-23-2025 Emergency department patient visit Dr. Jacinda Benton MD Work Phone: -Emergency Department Start: 07-05-2025 End: 07-05-2025 Dr. Jacinda Benton MD Work Phone: -Emergency Department Work Phone: Start: 07-05-2025 End: 07-05-2025 Emergency department patient visit Dr. Jacinda Benton MD Work Phone: -Emergency Department Start: 06-25-2025 ambulatory Orlando Jacob Facility:[facility] Start: 06-24-2025 ambulatory Lucas CHAWLA Facility:[facility] Start: 06-24-2025 Lucas Ayala L - Gaurav Start: 06-17-2025 ambulatory Jacinda Benton Facility:[facility] Start: 06-17-2025 Lucas Ayala Emilee Nolasco Start: 06-16-2025 End: 06-16-[address] Jacinda Benton MD Work Phone: [facility] Start: 06-16-2025 End: 06-16-2025 Dr. Lucas Wyatt MD -[facility] Work Phone: Start: 06-12-2025 End: 06-12-[address] Jacinda Benton MD Work Phone: [facility] Start: 06-12-2025 End: 06-12-2025 Karen HAMMOND -[facility] Work Phone: Start: 06-10-2025 End: 06-10-[address] Jacinda Benton MD Work Phone: [facility] Start: 06-10-2025 End: 06-10-2025 Lucas AyalaEmilee - Gaurav Start: 06-09-2025 Kevin Friend DO -[facility] Start: 06-09-2025 Dr. Dex claros [facility] Work Phone: Start: 06-08-2025 Dr. Dex claros [facility] Work Phone: Start: 06-07-2025 Dr. Roman Mckeon MD - [facility] Work Phone: Start: 06-06-2025 Dr. Roman Mckeon MD - [facility] Work Phone: Start: 06-05-2025 Kevin Friend DO -[facility] Start: 06-05-2025 Dr. [facility] Work Phone: Start: 06-04-2025 Kevin Friend DO -[facility] Start: 06-04-2025 Dr. Roman Mckeon MD -[facility] Work Phone: Start: 06-03-2025 Kevin Friend DO -[facility] Start: 06-03-2025 ambulatory Roman Mckeon Facility:[facility] Start: 06-03-2025 End: 06-09-2025 Evaluation and management of inpatient Dr. Jacinda Benton MD Work Phone: -Progressive Care Unit Start: 06-03-2025 End: 06-09-2025 Dr. Roman Mckeon MD -Progressive Care Un it Work Phone: Start: 05-20-2025 End: 05-20-[address] Jacinda Benton MD Work Phone: -[facility] Start: 05-20-2025 End: 05-20-2025 Lizz Lynn FRIT MAKER-C -[facility] Work Phone: Start: 05-20-2025 End: 05-20-2025 ambulatory Lizz Lynn Facility:[facility] Start: 05-19-2025 End: 05-19-2025 Dr. Jacinda Benton MD Work Phone: -Emergency Department Work Phone: Start: 05-19-2025 End: 05-19-2025 Emergency department patient visit Dr. Jacinda Benton MD Work Phone: -Emergency Department Start: 05-15-2025 End: 05-15-[address] Jacinda Benton MD Work Phone: -Cat Scan [facility] Start: 05-15-2025 End: 05-15-2025 Dr. Tye Barnett MD -[facility] Work Phone: Start: 05-15-2025 End: 05-15-2025 ambulatory Tye Barnett Facility:[facility] Start: 05-06-2025 End: 05-06-2025 Iona HAMMOND -[facility] Work Phone: Start: 05-06-2025 End: 05-06-[address] Jacinda Benton MD Work Phone: [facility] Work Phone: Start: 05-05-2025 End: 05-06-2025 Telephone encounter Lizz Lynn SYSTEMS CONSULTANT - [employer] Work Phone: [facility] Comment on above: Prior Authorization Start: 04-28-2025 ambulatory Negar Mckeon Facili ty:[facility] Start: 04-24-2025 End: 04-24-2025 Telephone encounter Lizz Lynn SYSTEMS CONSULTANT - [employer] Work Phone: [facility] Comment on above: Med Refill (Baclofen ) Start: 04-22-2025 Kevin Gonzalez DO -[facility] Start: 04-22-2025 Dr. Roman Mckeon MD -[facility] Work Phone: Start: 04-21-2025 Kevin Gonzalez DO -[facility] Start: 04-21-2025 Dr. Sommer archibald MD -[place] [facility] Work Phone: Start: 04-20-2025 Kevin Gonzalez DO -[facility] Start: 04-20-2025 Dr. Roman Mckeon MD -[facility] Work Phone: Start: 04-19-2025 Dr. Roman Mckoen MD -[facility] Work Phone: Start: 04-18-2025 ambulatory Sachin Murillo Fac ility:[facility] Start: 04-18-2025 End: 04-22-2025 Dr. Roman Mckeon MD -Medical Surgical 3 Work Phone: Start: 04-18-2025 End: 04-22-2025 Evaluation and management of inpatient Dr. Sachin Murillo MD -[facility] 3 Work Phone: Start: 04-17-2025 End: 04-18-2025 Dr. Jacinda Benton MD Work Phone: -Emergency Department Work Phone: Start: 04-17-2025 End: 04-18-2025 Emergency department patient visit Dr. Jacinda Benton MD Work Phone: -Emergency Department Work Phone: Start: 04-11-2025 End: 04-11-2025 Dr. [facility]írez [facility] Work [facility] Start: 04-11-2025 End: 04-11-2025 Emergency department patient visit Dr. Ramírez Onofre MD -Emergency Department Work Phone: Start: 04-08-2025 End: 04-08-2025 Office outpatient visit 15 minutes Lizz Lynn SYSTEMS CONSULTANT - [employer] Work Phone: [facility] Comment on above: Multiple sclerosis ( HCC) (Primary Dx); Dysphasia Start: 04-08-2025 End: 04-08-2025 ambulatory LIZZ LYNN [facility] Start: 04-02-2025 End: 04-02-2025 Dr. Jacinda Benton MD Work Phone: -Emergency Department Work Phone: Start: 04-02-2025 End: 04-02-2025 Emergency department patient visit Dr. Jacinda Benton MD Work Phone: [facility] Work Phone: Start: 03-19-2025 ambulatory Orlando Jacob Facility:[facility] Start: 03-19-2025 Non-patient / Non-visit Dr. Chico FOX -[facility] Start: 03-19-2025 End: 03-19-[address] Orlando Jacob MD -Cardiovascular Services Work Phone: Start: 03-19-2025 End: 03-19-2025 Dr. Orlando Jacob MD -[facility] Start: 03-19-2025 End: 03-19-2025 ambulatory Betsey PEÑA Facility:[facility] Start: 03-09-2025 End: 03-09-2025 Telephone encounter Lizz Lynn APRN - [employer] Work Phone: [facility] Clinical Communication Comment on above: Orders (MRI order) Start: 03-04-2025 End: 03-04-2025 Office outpatient visit 15 minutes Lizz Lynn SYSTEMS CONSULTANT - [employer] Work Phone: [facility] Comment on above: Multiple sclerosis ( HCC) (Primary Dx); Mild cognitive impairment; Fatigue, unspecified type; Deficiency of multiple nutrient elements Start: 03-04-2025 End: 03-04-20[facility] Start: 02-20-2025 End: 02-20-2025 Patient encounter procedure Betsey PEÑA -[facility] Work Phone: Start: 02-20-2025 End: 02-20-2025 Betsey PEÑA -[facility] Work Phone: Start: 02-20-2025 End: 02-20-2025 ambulatory Betsey PEÑA Facility:[facility] Start: 01-15-2025 End: 01-15-[address] Jacinda Benton MD -[facility] Work Phone: Start: 01-15-2025 End: 01-15-2025 Dr. Jacinda Benton MD -[facility] Work Phone: Start: 01-15-2025 End: 01-15-2025 ambulatory Jacinda Benton Facility:[facility] Start: 01-13-2025 Non-patient / Non-[facility] Work Phone: Start: 01-13-2025 [facility] Work Phone: Start: 01-12-2025 Non-patient / Non-visit Dr. Damian silva [facility] Work Phone: Start: 01-12-2025 Dr. Dex claros [facility] Work Phone: Start: 01-12-2025 Non-patient / Non-visit Dr. Rafaela Smiley MD -[facility] Start: 01-12-2025 Dr. Bhavik blevins MD -[facility] Start: 01-12-2025 [facility] Start: 01-12-2025 Non-patient / Non-visit Dr. Kacie Weiner MD -[facility] Start: 01-12-2025 Dr. Kofi Weiner MD [facility] Start: 01-11-2025 Non-patient / Non-visit Dr. Kacie Watson MD [facility] Work Phone: Start: 01-11-2025 Dr. Neha simpson MD [facility] Work Phone: Start: 01-11-2025 Non-patient / Non-visit Dr. Carlos A olea MD -[facility] Start: 01-11-2025 Dr. Carlos A Parikh MD [facility] Start: 01-10-2025 ambulatory Sommer Resendiz Facility :[facility] Start: 01-10-2025 End: 01-13-2025 Evaluation and management of inpatient Dr. Dex Worrell DO -Progressive Care Unit Work Phone: Start: 01-10-2025 End: 01-13-2025 Dr. Dex Worrell DO -Progressive Care Unit Work Phone: Start: 12-24-2024 End: 12-24-2024 Patient encounter procedure FRIT MAKER Negar Mckeon [facility] Work Phone: Start: 12-24-2024 End: 12-24-2024 FRIT MAKER Negar Mckeon [facility] Pulmona ry Medicine Work Phone: Start: 12-24-2024 End: 12-24-2024 ambulatory Negar Mckeon Facility:[facility] Start: 12-19-2024 End: 12-19-2024 Patient encounter procedure Betsey PEÑA -[facility] Work Phone: Start: 12-19-2024 End: 12-19-2024 Betsey PEÑA -[facility] Work Phone: Start: 12-19-2024 End: 12-19-2024 ambulatory Betsey PEÑA Facility:[facility] Start: 12-17-2024 End: 12-17-2024 Dr. Jeffy [facility] Work [facility] Start: 12-17-2024 End: 12-17-2024 Emergency department patient visit Jeffy Willoughby Facility:[facility] Start: 12-11-2024 Dr. Neha simpson MD -[place] [facility] Work Phone: Start: 12-10-2024 Dr. Neha simpson MD -[place] [facility] Work Phone: Start: 12-10-2024 Dr. Kofi Weiner MD -[facility] Start: 12-09-2024 End: 12-11-2024 ambulatory Neha Watson Facility:[facility] Start: 12-09-2024 End: 12-11-2024 Dr. Neha Watson MD -Progressive Care Unit Work Phone: Start: 11-28-2024 End: 11-28-2024 Emergency department patient visit Jacinda Benton Facility:[facility] Start: 11-24-2024 End: 11-24-2024 ambulatory Jacinda Benton Facility:[facility] Start: 11-20-2024 End: 11-20-2024 Refill Lizz Lynn SYSTEMS CONSULTANT - [employer] Work Phone: [facility] Comment on above: Multiple sclerosis ( HCC) Start: 10-08-2024 End: 10-08-2024 ambulatory Jacinda Benton Facility:[facility] Start: 10-06-2024 ambulatory Jorge Hurtado Facility:[facility] Start: 10-03-2024 End: 10-03-2024 ambulatory Jorge Brown Facility:[facility] Start: 10-01-2024 End: 10-01-2024 ambulatory Jorge [facility] Facility:[facility] Start: 09-14-2024 End: 09-15-2024 Refill Mamta Wood SYSTEMS CONSULTANT - [employer]EST [employer]TER Work Phone: [facility] Comment on above: Multiple sclerosis ( HCC) Start: 08-27-2024 End: 08-27-2024 ambulatory Tye Barnett Facility:[facility] Start: 08-25-2024 End: 08-25-2024 ambulatory Jorge Brown Facility:[facility] Start: 08-21-2024 End: 08-21-2024 ambulatory Jorge Bryant Facility:[facility] Start: 08-14-2024 End: 08-14-2024 ambulatory Jacinda Benton Facility:[facility] Start: 02-29-2024 End: 02-29-[address] Jacinda Benton Work Phone: [facility] Work Phone: Start: 02-29-2024 End: 02-29-2024 Dr. Jacinda Benton Work Phone: [facility] Start: 02-25-2024 Dr. Jacinda Benton Work Phone: [facility] Work Phone: Start: 02-25-2024 Dr. Jacinda Benton Work Phone: [facility] Start: 02-24-2024 Dr. Jacinda Benton Work Phone: [facility] Work Phone: Start: 02-24-2024 End: 02-24-2024 Dr. Jacinda Benton Work Phone: [facility] [place] [facility] Work Phone: Start: 02-23-2024 End: 02-23-2024 Dr. Jacinda Benton Work Phone: [facility] Work Phone: Start: 02-23-2024 Dr. Jacinda Benton Work Phone: [facility] Start: 02-23-2024 Dr. Jac[facility]enton [facility] Phone[facility] Work Phone: Start: 02-22-2024 Dr. Jacinda Benton Work Phone: [facility] Start: 02-22-2024 Dr. Jacinda Benton Work Phone: [facility] Work Phone: Start: 02-21-2024 Dr. Jacinda Benton Work Phone: [facility] Start: 02-21-2024 Dr. Jac[facility]enton [facility] Phone[facility] Work Phone: Start: 02-20-2024 Dr. Jacinda Benton Work Phone: [facility] [facility] Work Phone: Start: 02-19-2024 Dr. Jacinda Benton Work Phone: [facility] Start: 02-19-2024 End: 02-25-2024 Evaluation and management of inpatient Dr. Jacinda Benton Work Phone: [facility] Work Phone: Start: 02-19-2024 End: 02-25-2024 Dr. Jacinda Benton Work Phone: [facility] [facility] Work Phone: Start: 02-11-2024 Ankit Main MD Work Phone: [facility] Comment on above: Multiple sclerosis ( HCC) Start: 01-18-2024 End: 01-18-2024 Emergency department patient visit Dr. Jacinda Benton Work Phone: [facility] Work Phone: Start: 01-18-2024 End: 01-18-2024 Dr. Jacinda Benton Work Phone: [facility]-Emergency Department Work Phone: Start: 01-18-2024 End: 01-18-[address] Jacinda Benton Work Phone: [facility] Work Phone: Start: 01-18-2024 End: 01-18-2024 Dr. Jacinda Benton Work Phone: [facility] Start: 01-11-2024 End: 01-11-2024 Emergency department patient visit Dr. Jacinda Benton Work Phone: [facility] Work Phone: Start: 01-11-2024 End: 01-11-2024 Dr. Jacinda Benton Work Phone: [facility]-Emergency Department Work Phone: Start: 01-08-2024 Dr. Jacinda Benton Work Phone: [facility]-Physical Therapy Work Phone: Start: 12-21-2023 End: 12-21-2023 Dr. Jacinda Benton Work Phone: [facility]-Laboratory Work Phone: Start: 12-21-2023 End: 12-21-2023 Dr. Jacinda Benton Work Phone: [facility] Work Phone: Start: 12-14-2023 End: 12-14-2023 Office outpatient visit 40 minutes Lizz Lynn SYSTEMS CONSULTANT - [employer]HTER Work Phone: [facility] Comment on above: Multiple sclerosis ( HCC) (Primary Dx); Dizziness; Imbalance; Vision disturbance Start: 12-07-2023 Dr. Jacinda Benton Work Phone: [facility] Work Phone: Start: 12-06-2023 Dr. Jacinda Benton Work Phone: [facility] Work Phone: Start: 12-05-2023 Dr. Jacinda Benton Work Phone: [facility] Work Phone: Start: 12-05-2023 Dr. Jacinda Benton Work Phone: [facility] Start: 12-04-2023 Dr. Jacinda Benton Work Phone: [facility] Work Phone: Start: 12-04-2023 Dr. Jacinda Benton Work Phone: [facility] Start: 12-03-2023 Dr. Jacinda Benton Work Phone: [facility] In[facility] Work Phone: Start: 12-02-2023 End: 12-07-2023 Evaluation and management of inpatient Dr. Jacinda Benton Work Phone: [facility] Work Phone: Start: 12-02-2023 End: 12-07-2023 Dr. Jacinda Benton Work Phone: [facility] Work Phone: Start: 11-27-2023 End: 11-27-2023 Emergency department patient [facility] Start: 11-27-2023 End: 11-27-2023 Dr. Jacinda Benton Work Phone: [facility]-Emergency Department Work Phone: Start: 11-26-2023 End: 11-26-2023 Emergency department patient visit Dr. Jac[facility]enton [facility] Start: 11-26-2023 End: 11-26-2023 Dr. Jac[facility]enton [facility]: Start: 11-21-2023 Non-patient / Non-visit Dr. Alex Benton Work Phone: [facility] Work Phone: Start: 11-21-2023 Dr. Jacinda Benton Work Phone: [facility] Work Phone: Start: 11-20-2023 Non-patient / Non-visit Dr. Alex Benton Work Phone: [facility] Work Phone: Start: 11-20-2023 Dr. Jacinda Benton Work Phone: [facility] Work Phone: Start: 11-19-2023 Non-patient / Non-visit Dr. Alex Benton Work Phone: [facility] Start: 11-19-2023 Dr. Jacinda Benton Work Phone: [facility] Start: 11-18-2023 End: 11-21-2023 Evaluation and management of inpatient Dr. Jacinda Benton Work Phone: [facility] Work Phone: Start: 11-18-2023 End: 11-21-2023 Dr. Jacinda Benton Work Phone: [facility] Work Phone: Start: 11-16-2023 Non-patient / Non-visit Dr. Alex Benton Work Phone: [facility] In[facility] Physicians Work Phone: Start: 11-16-2023 Dr. Jacinda Benton Work Phone: [facility] In[facility]icians Work Phone: Start: 11-15-2023 End: 11-16-2023 Evaluation and management of inpatient Dr. Jac[facility] Benton [facility] Work Phone: Start: 11-15-2023 End: 11-16-2023 Dr. Jacinda Benton Work Phone: [facility] Work Phone: Start: 11-02-2023 End: 11-02-[address] Jacinda Benton Work Phone: [facility] Work Phone: Start: 11-02-2023 End: 11-02-2023 Dr. Jacinda Benton Work Phone: [facility] Work Phone: Start: 10-26-2023 End: 10-26-2023 ambulatory TYE BARNETT MD Facility:[facility] Start: 10-22-2023 End: 10-22-[address] Jacinda Benton Work Phone: [facility] Work Phone: Start: 10-22-2023 End: 10-22-[address] [facility] Work Phone: Start: 10-22-2023 End: 10-22-2023 Dr. Jacinda Benton [facility] Work Phone: Start: 10-22-2023 End: 10-22-[address] Jacinda Benton Work Phone: [facility] Work Phone: Start: 10-22-2023 End: 10-22-2023 Dr. Jacinda Benton Work Phone: [facility] Work Phone: Start: 10-05-2023 End: 10-05-2023 Office outpatient visit 40 minutes Kristopher Main MD Work Phone: [facility] Comment on above: Multiple sclerosis ( HCC) (Primary Dx); Cerebrovascular disease, unspecified; Primary hypertension Start: 10-05-2023 Telephone encounter Kristopher baez MD Work Phone: [facility] Comment on above: Orders Start: 10-05-2023 End: 10-05-2023 Emergency department patient visit Dr. Jacinda Benton Work Phone: [facility]-Emergency Department Work Phone: Start: 10-05-2023 End: 10-05-2023 Dr. Jacinda Benton Work Phone: [facility]-Emergency Department Work Phone: Start: 09-04-2023 End: 09-04-[address] Jacinda Benton Work Phone: [facility] Work Phone: Start: 09-04-2023 End: 09-04-2023 Dr. Jacinda Benton Work Phone: [facility] Work Phone: Start: 09-04-2023 End: 09-04-[address] Jacinda Benton Work Phone: [facility] Work Phone: Start: 09-04-2023 End: 09-04-[address] Jacinda Benton Work Phone: [facility] Work Phone: Start: 09-04-2023 End: 09-04-2023 Dr. Jacinda Benton Work Phone: [facility] Work Phone: Start: 08-21-2023 End: 08-21-[address] Jacinda Benton Work Phone: [facility] Start: 08-21-2023 End: 08-21-2023 Dr. Jacinda Betnon Work Phone: [facility] Start: 07-26-2023 End: 07-26-[address] Jacinda Benton Work Phone: [facility] Work Phone: Start: 07-26-2023 End: 07-26-[address] Jacinda Benton Work Phone: [facility] Work Phone: Start: 06-15-2023 Refill Kristopher Main MD Work Phone: [facility] Comment on above: Multiple sclerosis ( HCC) Start: 06-04-2023 Telephone encounter Kristopher baez MD Work Phone: [facility] Comment on above: Med Refill Start: 05-24-2023 End: 05-24-[address] Jacinda Benton Work Phone: [facility] Work Phone: Start: 05-10-2023 Ankit Main MD Work Phone: [facility] Start: 04-26-2023 End: 04-26-[address] Jacinda Benton Work Phone: [facility] Work Phone: Start: 04-26-2023 End: 04-26-[address] Jacinda Benton Work Phone: [facility] Start: 04-25-2023 End: 04-25-[address] Jacinda Benton Work Phone: [facility] Start: 04-14-2023 End: 04-14-[address] Jacinda Benton Work Phone: [facility] Work Phone: Start: 04-14-2023 End: 04-14-[address] Jacinda Benton Work Phone: [facility] Start: 04-10-2023 End: 04-10-[address] Jacinda Benton Work Phone: [facility] Work Phone: Start: 04-10-2023 End: 04-10-[address] Jacinda Benton Work Phone: [facility]-Nuclear Medicine, [facility] Start: 04-08-2023 End: 04-08-2023 Emergency department patient visit Dr. Jacinda Benton Work Phone: [facility]-Emergency Department Start: 04-02-2023 End: 04-02-[address] Jacinda Benton Work Phone: [facility] Start: 03-31-2023 End: 03-31-2023 Emergency department patient visit Dr. Jacinda Benton Work Phone: [facility]-Emergency Department Start: 03-20-2023 End: 03-20-[address] Jacinda Benton Work Phone: [facility] Work Phone: Start: 03-20-2023 End: 03-20-[address] Jacinda Benton Work Phone: [facility] Start: 03-16-2023 End: 03-16-2023 Emergency department patient visit Dr. Jacinda Benton Work Phone: [facility]-Emergency Department Start: 02-01-2023 End: 02-01-[address] Jacinda Benton Work Phone: [facility] Work Phone: Start: 02-01-2023 End: 02-01-[address] Jacinda Benton Work Phone: [facility]-Outpatient Bone Densitometry Start: 01-22-2023 End: 01-22-[address] Jacinda Benton Work Phone: [facility] Start: 12-27-2022 End: 12-27-[address] Jacinda Benton Work Phone: [facility] Start: 12-20-2022 End: 12-20-[address] Jacinda Benton Work Phone: [facility] Start: 12-13-2022 End: 12-13-[address] Jacinda Benton Work Phone: [facility] Start: 12-04-2022 End: 12-04-[address] Jacinda Benton Work Phone: [facility] Start: 11-24-2022 End: 11-24-2022 Emergency department patient visit Dr. Jacinda Benton Work Phone: [facility]-Emergency Department Start: 11-21-2022 Non-patient / Non-visit Dr. Alex Benton Work Phone: [facility] Start: 11-21-2022 End: 11-21-[address] Jacinda Benton Work Phone: [facility] Work Phone: Start: 11-21-2022 End: 11-21-[address] [facility] Start: 11-09-2022 End: 11-09-2022 SAME DAY STAY YTE BARNETT MD [facility] Start: 10-26-2022 End: 10-26-[address] Jacinda Benton Work Phone: [facility] Start: 10-20-2022 End: 10-20-[address] Jacinda Benton Work Phone: [facility] Start: 10-09-2022 End: 10-09-[address] Jacinda Benton Work Phone: [facility] Start: 09-26-2022 End: 09-26-2022 ambulatory [facility] Work Phone: Start: 09-26-2022 End: 09-26-2022 [facility] Start: 09-03-2022 Transcribe Orders Kristopher olson MD Work Phone: [facility] [place] Comment on above: Other specified symp toms and signs involving the circulatory and respiratory systems (Primary Dx); Cerebrovascular disease, unspecified Start: 08-23-2022 End: 08-23-[address] Jacinda Benton Work Phone: [facility] Work Phone: Start: 08-23-2022 End: 08-23-[address] Jac[facility] Benton [facility] Start: 05-16-2022 End: 05-16-[address] Jacinda Benton Work Phone: [facility] Start: 05-02-2022 End: 05-02-[address] Jacinda eBnton Work Phone: [facility] Start: 02-22-2022 End: 02-22-[address] Jacinda Benton Work Phone: [facility] Start: 02-20-2022 End: 02-20-2022 Emergency department patient visit Dr. Jacinda Benton Work Phone: [facility]-Emergency Department Start: 02-18-2022 End: 02-18-2022 Emergency department patient visit Dr. Jacinda Benton Work Phone: [facility]-Emergency Department Start: 02-17-2022 End: 02-17-2022 Emergency department patient visit Dr. Jacinda Benton Work Phone: [facility]-Emergency Department Start: 02-14-2022 End: 02-14-2022 Emergency department patient visit Dr. Jacinda Benton Work Phone: [facility]-Emergency Department Start: 02-08-2022 End: 02-08-[address] Jacinda Benton Work Phone: [facility] Start: 01-23-2022 End: 01-23-2022 Emergency department patient visit Dr. Jacinda Benton Work Phone: [facility]-Emergency Department Start: 01-18-2022 End: 01-18-2022 Admission to same day surgery center Dr. Jacinda Benton Work Phone: [facility]-[employer]/Special Procedures Start: 11-17-[address] Jacinda Benton Work Phone: [facility] Start: 10-21-2021 End: 10-21-[address] Jacinda Benton Work Phone: [facility] Start: 08-11-[address] Jacinda Benton Work Phone: [facility] Start: 08-11-[address] Jacinda lin MD Work Phone: [facility] Start: 11-25-2020 End: 11-25-2020 Subsequent hospital visit by physician Xr [facility] Work Phone: Radiology Comment on above: Cough [R05] Start: 12-21-2017 End: 12-21-2017 Ambulatory YOGESH ONOFRE [facility] Procedures Date Procedure Procedure Detail Performing Clinician Start: 07-22-2025 Blood count smear mcrscp w/mnl difrntl wbc count Dr. Jacinda Benton MD Work Phone: Start: 07-22-[address] Jacinda Benton MD Work Phone: Start: 07-22-2025 Mean corpuscular hemoglobin concentration determination Dr. Jacinda Benton MD Work Phone: Start: 07-22-2025 Nucleated red blood cell count procedure Dr. Jacinda Benton MD Work Phone: Start: 07-22-2025 Platelet mean volume determination Dr. Marcelle Benton MD Work Phone: Start: 07-22-2025 CT of head without contrast Dr. Jacinda saleh MD Work Phone: Start: 07-05-2025 CT of head without contrast Dr. Jacinda saleh MD Work Phone: Start: 06-24-2025 Blood count smear mcrscp w/mnl difrntl wbc count Dr. Jacinda Benton MD Work Phone: Start: 06-24-2025 Mean corpuscular hemoglobin concentration determination Dr. Jacinda Benton MD Work Phone: Start: 06-24-2025 Nucleated red blood cell count procedure Dr. Jacinda Benton MD Work Phone: Start: 06-24-2025 Platelet mean volume determination Dr. Marcelle Benton MD Work Phone: Start: 06-17-2025 Blood count smear mcrscp w/mnl difrntl wbc count Dr. Jacinda Benton MD Work Phone: Start: 06-17-2025 Mean corpuscular hemoglobin concentration determination Dr. Jacinda Benton MD Work Phone: Start: 06-17-2025 Nucleated red blood cell count procedure Dr. Jacinda Benton MD Work Phone: Start: 06-17-2025 Platelet mean volume determination Dr. Marcelle Benton MD Work Phone: Start: 06-17-2025 Vitamin D, 25-hydroxy measurement Dr. Alex Benton MD Work Phone: Start: 06-10-2025 Blood count smear mcrscp w/mnl difrntl wbc count Dr. Jacinda Benton MD Work Phone: Start: 06-10-2025 Mean corpuscular hemoglobin concentration determination Dr. Jacinda Benton MD Work Phone: Start: 06-10-2025 Nucleated red blood cell count procedure Dr. Jacinda Benton MD Work Phone: Start: 06-10-2025 Platelet mean volume determination Dr. Marcelle Benton MD Work Phone: Start: 06-08-2025 Blood count smear mcrscp w/mnl difrntl wbc count Dr. Jacinda Benton MD Work Phone: Start: 06-08-[address] Jacinda Benton MD Work Phone: Start: 06-08-2025 Mean corpuscular hemoglobin concentration determination Dr. Jacinda Benton MD Work Phone: Start: 06-08-2025 Nucleated red blood cell count procedure Dr. Jacinda Benton MD Work Phone: Start: 06-08-2025 Platelet mean volume determination Dr. Marcelle Benton MD Work Phone: Start: 06-07-2025 CT of chest without contrast Dr. Jacinda lin MD Work Phone: Start: 06-07-2025 CT of head without contrast Dr. Jacinda saleh MD Work Phone: Start: 06-07-2025 Urine microscopy: red cells Dr. Jacinda saleh MD Work Phone: Start: 06-07-2025 Urnls dip stick/tablet reagent auto microscopy Dr. Jacinda Benton MD Work Phone: Start: 06-07-[address] Jacinda Benton MD Work Phone: Start: 06-07-2025 Serum inorganic phosphate measurement Dr. Jacinda Benton MD Work Phone: Start: 06-05-[address] Jacinda swanson MD Work Phone: Start: 06-04-2025 Calculation of international normalized ratio Dr. Jacinda Benton MD Work Phone: Start: 06-03-2025 Measurement of occult blood in stool specimen using immunoassay Dr. Jacinda Benton MD Work Phone: Start: 06-03-2025 Plain chest X-ray Dr. Jacinda Benton MD Work Phone: Start: 06-03-2025 Blood count smear mcrscp w/mnl difrntl wbc count Dr. Jacinda Benton MD Work Phone: Start: 06-03-[address] Jacinda Benotn MD Work Phone: Start: 06-03-2025 Mean corpuscular hemoglobin concentration determination Dr. Jacinda Benton MD Work Phone: Start: 06-03-2025 Nucleated red blood cell count procedure Dr. Jacinda Benton MD Work Phone: Start: 06-03-2025 Platelet mean volume determination Dr. Marcelle Benton MD Work Phone: Start: 05-20-2025 MRI of brain without contrast Dr. Jacinda sandoval MD Work Phone: Start: 05-15-2025 Blood count smear mcrscp w/mnl difrntl wbc count Dr. Jacinda Benton MD Work Phone: Start: 05-15-[address] Jacinda Benton MD Work Phone: Start: 05-15-2025 Mean corpuscular hemoglobin concentration determination Dr. Jacinda Benton MD Work Phone: Start: 05-15-2025 Nucleated red blood cell count procedure Dr. Jacinda Benton MD Work Phone: Start: 05-15-2025 Platelet mean volume determination Dr. Marcelle Benton MD Work Phone: Start: 05-15-[address] Marcelle Benton MD Work Phone: Start: 05-15-2025 Total iron binding capacity measurement Dr. Jacinda Benton MD Work Phone: Start: 05-15-2025 CT angiography of neck vessels Dr. Jacinda Benton MD Work Phone: Start: 04-22-[address] Jacinda Benton MD Work Phone: Start: 04-22-[address] Jacinda Benton MD Work Phone: Start: 04-22-2025 Mean corpuscular hemoglobin concentration determination Dr. Jacinda Benton MD Work Phone: Start: 04-22-2025 Platelet mean volume determination Dr. Marcelle Benton MD Work Phone: Start: 04-21-[address] Jacinda swanson MD Work Phone: Start: 04-21-2025 Measurement of occult blood in stool specimen using immunoassay Dr. Jacinda Benton MD Work Phone: Start: 04-21-2025 CT of head without contrast Dr. Jacinda saleh MD Work Phone: Start: 04-20-[address] Jacinda swanson MD Work Phone: Start: 04-20-2025 Serum inorganic phosphate measurement Dr. Jacinda Benton MD Work Phone: Start: 04-19-2025 Blood count smear mcrscp w/mnl difrntl wbc count Dr. Jacinda Benton MD Work Phone: Start: 04-19-2025 Nucleated red blood cell count procedure Dr. Jacinda Benton MD Work Phone: Start: 04-18-[address] Jacinda Benton MD Work Phone: Start: 04-18-2025 Total iron binding capacity measurement Dr. Jacinda Benton MD Work Phone: Start: 04-18-[address] Jacinda Benton MD Work Phone: Start: 04-18-[address] Marcelle Benton MD Work Phone: Start: 04-17-2025 Plain X-ray abdomen Dr. Jacinda Benton MD Work Phone: Start: 04-11-2025 CT cervical spine without contrast Dr. Marcelle Benton MD Work Phone: Start: 04-11-[address] Jacinda Benton MD Work Phone: Start: 04-11-2025 CT of head without contrast Dr. Jacinda saleh MD Work Phone: Start: 04-02-2025 Blood count smear mcrscp w/mnl difrntl wbc count Dr. Jacinda Benton MD Work Phone: Start: 04-02-[address] Jacinda Benton MD Work Phone: Start: 04-02-2025 Mean corpuscular hemoglobin concentration determination Dr. Jacinda Benton MD Work Phone: Start: 04-02-2025 Nucleated red blood cell count procedure Dr. Jacinda Benton MD Work Phone: Start: 04-02-2025 Platelet mean volume determination Dr. Marcelle Benton MD Work Phone: Start: 04-02-[address] Marcelle Benton MD Work Phone: Start: 04-02-2025 Computed tomography of abdomen and pelvis with intravenous contrast Dr. aJcinda Benton MD Work Phone: Start: 01-15-[address] Jacinda Benton MD Work Phone: Start: 01-11-[address] Jacinda Benton MD Work Phone: Start: 01-11-2025 Sars-cov-2 Dr. Jacinda Benton MD Work Phone: Start: 01-11-2025 Albumin/Globulin ratio Dr. Jacinda Benton MD Work Phone: Start: 01-11-[address] Jacinda Benton MD Work Phone: Start: 01-11-2025 Blood count smear mcrscp w/mnl difrntl wbc count Dr. Jacinda Benton MD Work Phone: Start: 01-11-2025 BUN/Creatinine ratio Dr. Jacinda Benton MD Work Phone: Start: 01-11-[address] Jacinda Benton MD Work Phone: Start: 01-11-2025 Mean corpuscular hemoglobin concentration determination Dr. Jacinda Benton MD Work Phone: Start: 01-11-2025 Measurement of renal function Dr. Jacinda sandoval MD Work Phone: Comment on above: GFR Calc Start: 01-11-2025 Nucleated red blood cell count procedure Dr. Jacinda Benton MD Work Phone: Start: 01-11-2025 Platelet mean volume determination Dr. Marcelle Benton MD Work Phone: Start: 01-11-2025 Calculation of international normalized ratio Dr. Jacinda Benton MD Work Phone: Start: 01-10-2025 Plain chest X-ray Dr. Jacinda Benton MD Work Phone: Start: 01-10-2025 CT of head without contrast Dr. Jacinda saleh MD Work Phone: Start: 12-17-2024 X-ray of chest, PA and lateral views Dr. Jacinda Benton MD Work Phone: Start: 12-17-[address] Jacinda Benton MD Work Phone: Start: 12-17-[address] Jacinda Benton MD Work Phone: Start: 12-17-2024 BUN/Creatinine ratio Dr. Jacinda Benton MD Work Phone: Start: 12-17-[address] Jacinda Benton MD Work Phone: Start: 12-17-2024 Mean corpuscular hemoglobin concentration determination Dr. Jacinda Benton MD Work Phone: Start: 12-17-2024 Measurement of renal function Dr. Jacinda sandoval MD Work Phone: Start: 12-17-2024 Platelet mean volume determination Dr. Marcelle Benton MD Work Phone: Start: 12-11-2024 Measurement of occult blood in stool specimen using immunoassay Dr. Jacinda Benton MD Work Phone: Start: 12-11-2024 Albumin/Globulin ratio Dr. Jacinda Benton MD Work Phone: Start: 12-11-[address] Jacinda Benton MD Work Phone: Start: 12-11-2024 BUN/Creatinine ratio Dr. Jacinda Benton MD Work Phone: Start: 12-11-[address] Jacinda Benton MD Work Phone: Start: 12-11-2024 Mean corpuscular hemoglobin concentration determination Dr. Jacinda Benton MD Work Phone: Start: 12-11-2024 Measurement of renal function Dr. Jacinda sandoval MD Work Phone: Start: 12-11-2024 Platelet mean volume determination Dr. Marcelle Benton MD Work Phone: Start: 12-10-2024 Blood count smear mcrscp w/mnl difrntl wbc count Dr. Jacinda Benton MD Work Phone: Start: 12-10-2024 Nucleated red blood cell count procedure Dr. Jacinda Benton MD Work Phone: Start: 12-09-2024 CT of head without contrast Dr. Jacinda saleh MD Work Phone: Start: 12-09-2024 Plain chest X-ray Dr. Jacinda Bentno MD Work Phone: Start: 02-25-[address] Jacinda Benton Work Phone: Start: 02-23-2024 CT angiography of chest with contrast Dr. Jacinda Benton Work Phone: Start: 02-22-2024 Investigation of transfusion reaction Dr. Jacinda Benton Work Phone: Start: 02-22-[address] Jacinda sandoval Work Phone: Start: 02-20-[address] Jacinda swanson Work Phone: Start: 02-19-2024 Legionella pneumophila antigen assay Dr. Jacinda Benton Work Phone: Start: 02-19-2024 Measurement of occult blood in stool specimen using immunoassay Dr. Jacinda Benton Work Phone: Start: 02-19-2024 Dr. Jacinda Benton Work Phone: Start: 02-19-2024 Plain chest X-ray Dr. Jacinda Benton Work Phone: Start: 01-18-2024 CT of head without contrast Dr. Jacinda saleh Work Phone: Start: 01-11-2024 CT angiography of chest with contrast Dr. Jacinda Benton Work Phone: Start: 01-11-2024 CT cervical spine without contrast Dr. Marcelle Benton Work Phone: Start: 01-11-2024 CT of head without contrast Dr. Jacinda Scott Work Phone: Start: 01-11-2024 Plain chest X-ray Dr. Jacinda Benton Work Phone: Start: 12-05-2023 MRI of brain without contrast Dr. Jacinda Olson [facility] Work Phone: Start: 12-05-2023 CT of head without contrast Dr. Jacinda Scott Work Phone: Start: 12-04-2023 Diagnostic radiography of abdomen Dr. Alex Benton Work Phone: Start: 12-03-2023 CT angiography of head and neck Dr. Jacinda Benton Work Phone: Start: 12-03-2023 Plain chest X-ray Dr. Jacinda Benton Work Phone: Start: 12-03-2023 CT of head without contrast Dr. Jacinda Scott Work Phone: Start: 12-02-[address] Jacinda Benton Work Phone: Start: 12-02-2023 Dr. Jacinda Benton Work Phone: Start: 12-02-2023 CT of head without contrast Dr. Jacinda Scott Work Phone: Start: 12-02-2023 Plain chest X-ray Dr. Jacinda Benton Work Phone: Start: 11-27-2023 Plain chest X-ray Dr. Jacinda Benton Work Phone: Start: 11-27-2023 CT angiography of head and neck Dr. Jacinda Benton Work Phone: Start: 11-26-2023 Plain chest X-ray Dr. Jacinda Benton Work Phone: Start: 11-19-2023 Plain chest X-ray Dr. Jacinda Benton Work Phone: Start: 11-18-2023 Measurement of occult blood in stool specimen using immunoassay Dr. Jacinda Benton Work Phone: Start: 11-18-2023 Plain chest X-ray Dr. Jacinda Benton Work Phone: Start: 11-16-2023 Plain chest X-ray Dr. Jacinda Benton Work Phone: Start: 11-15-2023 SARS-CoV-2, Influenza & RSV (PCR) Dr. Alex Benton Work Phone: Start: 11-15-2023 Dr. Jacinda Benton Work Phone: Start: 11-15-2023 Plain chest X-ray Dr. Jacinda Benton Work Phone: Start: 10-05-2023 CT of head without contrast Dr. Jacinda saleh Work Phone: Start: 10-05-2023 Plain chest X-ray Dr. Jacinda Benton Work Phone: Start: 04-14-2023 MRI of thoracic spine Dr. Jacinda Benton Work Phone: Start: 04-10-2023 Radionuclide whole body bone study Dr. Marcelle Benton Work Phone: Start: 04-08-2023 Plain chest X-ray Dr. Jacinda Benton Work Phone: Start: 03-20-2023 X-ray of chest posteroanterior view Dr. Jacinda Benton Work Phone: Start: 03-16-2023 Plain chest X-ray Dr. Jacinda Benton Work Phone: Start: 03-16-2023 Radiography of thoracic spine Dr. Jacinda sandoval Work Phone: Start: 03-16-2023 X-ray of both feet Dr. Jacinda Benton Work Phone: Start: 02-01-2023 Dual energy X-ray absorptiometry Dr. Nila Benton Work Phone: Start: 12-04-2022 Radiologic examination of knee Dr. Jacinda Benton Work Phone: Start: 05-02-2022 MRI of brain with contrast Dr. Jacinda swanson Work Phone: Start: 02-20-2022 Plain chest X-ray Dr. Jacinda Benton Work Phone: Start: 02-18-2022 Plain chest X-ray Dr. Jacinda Benton Work Phone: Start: 02-18-2022 CT of head without contrast Dr. Jacinda saleh Work Phone: Start: 02-14-2022 Pelvis X-ray Dr. Jacinda Benton Work Phone: Start: 01-23-2022 Radiologic examination of knee Dr. Jacinda Benton Work Phone: Start: 11-17-2021 CT of abdominal aorta with contrast Dr. Jacinda Benton Work Phone: Start: 11-25-2020 Radiologic exam chest 2 views Paloma Thompson APRN.[employer] Work Phone: Start: 04-19-2016 Lipid 1996 panel [...] obtained by biopsy (specimen) TYE BARNETT MD Imelda Llanos Urine culture Dr. Jacinda Benton Work Phone: Plan of Treatment Date Care Activity Detail Author Start: 02-09-2031 DTaP/Tdap/Td Vaccines (3 - Td or Tdap) DTaP/Tdap/Td Vaccines (3 - Td or Tdap) [facility] Start: 02-09-2031 Urine microalbumin profile DTaP,Tdap,Td Vaccine (3 - Td or Tdap) [facility] Start: 2029 RSV Vaccine (1 - 1-dose 75+ series) RSV Vaccine (1 - 1-dose 75+ series) [facility] Start: 10-20-2025 End: 10-20-2025 Patient encounter procedure 10/20/2025 2:20 PM EST Office Visit [facility] [address] [place] [id number] Kristopher Main MD [address] [place] [address] [facility] Start: 07-23-2025 [facility] Start: 07-20-2025 COVID-19 Vaccine ( season) COVID-19 Vaccine ( season) [facility] Start: 07-20-2025 Influenza vaccination [facility] Start: 07-05-2025 [facility] Start: 06-09-2025 Patient discharge [facility] Start: 06-08-2025 Referral to occupational therapist [facility] Start: 06-08-2025 Referral to service [facility] Start: 06-05-2025 Referral to service [facility] Start: 06-05-2025 Following clinical pathway protocol [facility] Start: 06-05-2025 Oxygen therapy [facility] Start: 06-05-2025 Administration of blood product [facility] Start: 06-04-2025 Following clinical pathway protocol [facility] Start: 06-04-2025 Application of intermittent pneumatic compression device [facility] Start: 06-03-2025 [facility] Start: 06-03-2025 End: 06-03-2025 Patient encounter procedure 06/03/2025 12:30 PM EDT Office Visit [facility] [address] [place] [id number] Lizz Lynn APRN - CNP [address] [place] [id number] [facility] Start: 06-03-2025 End: 06-03-2025 [facility] Start: 06-03-2025 Following clinical pathway protocol [facility] Start: 06-03-2025 Ambulation without limitation [facility] Start: 06-03-2025 Assessment of risk of venous thromboembolism [facility] Start: 06-03-2025 Elevation of affected extremity [facility] Start: 06-03-2025 Inhalation therapy procedure [facility] Start: 06-03-2025 Insertion of catheter into peripheral vein [facility] Start: 06-03-2025 Measuring intake and output [facility] Start: 06-03-2025 Notification of physician [facility] Start: 06-03-2025 Patient education [facility] Start: 06-03-2025 Providing care according to standard [facility] Start: 06-03-2025 Referral to gastroenterology service [facility] Start: 06-03-2025 Administration of blood product [facility] Start: 06-03-2025 Verification routine [facility] Start: 06-03-2025 Hospital admission, emergency, from emergency room, medical nature [facility] Start: 06-03-2025 Admission procedure [facility] Start: 06-03-2025 Leukocyte reduced red blood cells [facility] Start: 06-03-2025 Administration of blood product [facility] Start: 06-03-2025 Patient referral to dietitian [facility] Start: 05-19-2025 [facility] Start: 04-22-2025 Patient discharge [facility] Start: 04-21-2025 [facility] Start: 04-20-2025 Insertion of nasogastric tube [facility] Start: 04-20-2025 [facility] Start: 04-20-2025 End: 04-20-2025 [facility] Start: 04-20-2025 Referral to service [facility] Start: 04-19-2025 Referral to gastroenterology service [facility] Start: 04-19-2025 Administration of blood product [facility] Start: 04-18-2025 Application of intermittent pneumatic compression device [facility] Start: 04-18-2025 Ambulation without limitation [facility] Start: 04-18-2025 Assessment of risk of venous thromboembolism [facility] Start: 04-18-2025 Insertion of catheter into peripheral vein [facility] Start: 04-18-2025 Providing care according to standard [facility] Start: 04-18-2025 [facility] Start: 04-18-2025 Following clinical pathway protocol [facility] Start: 04-18-2025 Verification routine [facility] Start: 04-18-2025 Admission procedure [facility] Start: 04-18-2025 Hospital admission, emergency, from emergency room, medical nature [facility] Start: 04-18-2025 End: 04-19-2025 [facility] Start: 04-18-2025 [facility] Start: 04-18-2025 Patient referral to dietitian [facility] Start: 04-17-2025 Emergency dept visit high severity&threat funj [facility] Start: 04-11-2025 [facility] Start: 04-02-2025 [facility] Start: 03-04-2025 End: 03-04-2026 Cobalamin (Vitamin B12) [Mass/volume] in Serum or Plasma Vitamin B12 Lab Routine Mild cognitive impairment Deficiency of multiple nutrient elements Expected: 03/04/2025 (Approximate), Expires: 03/04/2026 [employer] Comment on above: Expected: 03/04/2025 (Approximate), Expi res: 03/04/2026 Start: 03-04-2025 End: 03-04-2026 Electroencephalogram EEG Neurology Routine Mild cognitive impairment Expected: 03/04/2025 (Approximate), Expires: 03/04/2026 [facility] Work Phone: Comment on above: Expected: 03/04/2025 (Approximate), Expi res: 03/04/2026 Start: 03-04-2025 End: 03-04-2026 MR Brain WO contrast MR brain wo contrast Imaging Routine Mild cognitive impairment Expected: 03/04/2025, Expires: 03/04/2026 [facility] Comment on above: Expected: 03/04/2025, Expires: Start: 03-04-2025 End: 03-04-2026 Thyrotropin [Units/volume] in Serum or Plasma TSH Lab Routine Mild cognitive impairment Fatigue, unspecified type Expected: 03/04/2025 (Approximate), Expires: 03/04/2026 [facility] Comment on above: Expected: 03/04/2025 (Approximate), Expi res: 03/04/2026 Start: 03-04-2025 End: 03-04-2026 Vitamin B1 ([facility]) Vitamin B1 ([facility]) Lab Routine Mild cognitive impairment Deficiency of multiple nutrient elements Expected: 03/04/2025 (Approximate), Expires: 03/04/2026 [facility] Comment on above: Expected: 03/04/2025 (Approximate), Expi res: 03/04/2026 Start: 03-04-2025 End: 03-04-2026 Vitamin B6 Vitamin B6 Lab Routine Mild cognitive impairment Deficiency of multiple nutrient elements Expected: 03/04/2025 (Approximate), Expires: 03/04/2026 [facility] Comment on above: Expected: 03/04/2025 (Approximate), Expi res: 03/04/2026 Start: 01-13-2025 Patient discharge [facility] Start: 01-11-2025 Following clinical pathway protocol [facility] Start: 01-11-2025 Assessment of risk of venous thromboembolism [facility] Start: 01-11-2025 Fall prevention [facility] Start: 01-11-2025 Inhalation therapy procedure [facility] Start: 01-11-2025 Insertion of catheter into peripheral vein [facility] Start: 01-11-2025 Introduction of urinary catheter [facility] Start: 01-11-2025 Measuring intake and output [facility] Start: 01-11-2025 Oxygen therapy [facility] Start: 01-11-2025 Providing care according to standard [facility] Start: 01-11-2025 Provision of activity privileges [facility] Start: 01-11-2025 Referral to wool broker [facility] Start: 01-11-2025 Referral to occupational therapist [facility] Start: 01-11-2025 Referral to service [facility] Start: 01-11-2025 Tobacco use cessation education [facility] Start: 01-11-2025 [facility] Start: 01-11-2025 Patient referral to dietitian [facility] Start: 01-10-2025 Admission procedure [facility] Start: 12-17-2024 [facility] Start: 12-11-2024 Patient discharge [facility] Start: 12-10-2024 Cardiac monitoring [facility] Start: 12-10-2024 Notification of physician [facility] Start: 12-10-2024 Oxygen therapy [facility] Start: 12-10-2024 Patient discharge [facility] Start: 12-10-2024 Patient education [facility] Start: 12-10-2024 Provision of activity privileges [facility] Start: 12-10-2024 Pulse taking [facility] Start: 12-10-2024 Systemic arterial pressure monitoring [facility] Start: 12-10-2024 Taking patient vital signs [facility] Start: 12-10-2024 Vascular disease risk assessment [facility] Start: 12-10-2024 Vital signs measurements [facility] Start: 12-10-2024 Wound care [facility] Start: 12-10-2024 [facility] Start: 12-09-2024 Referral to wool broker [facility] Start: 12-09-2024 Following clinical pathway protocol [facility] Start: 12-09-2024 Assessment of risk of venous thromboembolism [facility] Start: 12-09-2024 Insertion of catheter into peripheral vein [facility] Start: 12-09-2024 Measuring intake and output [facility] Start: 12-09-2024 Oxygen therapy [facility] Start: 12-09-2024 Providing care according to standard [facility] Start: 12-09-2024 Provision of activity privileges [facility] Start: 12-09-2024 Referral to occupational therapist [facility] Start: 12-09-2024 Referral to service [facility] Start: 12-09-2024 Tobacco use cessation education [facility] Start: 12-09-2024 [facility] Start: 12-09-2024 Admission procedure [facility] Start: 12-09-2024 Patient referral to dietitian [facility] Start: 12-08-2024 End: 12-08-2024 Patient encounter procedure 12/08/2024 11:30 AM EST Office Visit [facility] [address] [place] [address] Mamta Wood APRN - CNP [address] [place] [address] [facility] Start: 11-19-2024 Medicare Advantage Annual Wellness Visit Medicare Advantage Annual Wellness Visit [facility] Start: 07-20-2024 Covid-19 Vaccine ( season) Covid-19 Vaccine ( season) [facility] Start: 07-20-2024 COVID-19 Vaccine ( season) COVID-19 Vaccine ( season) [facility] Start: 07-20-2024 Influenza [facility] Start: 04-04-2024 Creatinine measurement Creatinine Level [facility] Start: 04-04-2024 Potassium measurement Potassium Level [facility] Start: 02-25-2024 Patient discharge [facility] Start: 02-23-2024 End: 02-24-2024 [facility] Start: 02-22-2024 End: 02-22-2024 Administration of blood product [facility] Start: 02-22-2024 Transfusion of red blood cells [facility] Start: 02-22-2024 Referral to service [facility] Start: 02-22-2024 Blood chemistry [facility] Start: 02-22-2024 [facility] Start: 02-21-2024 Oxygen therapy [facility] Start: 02-21-2024 Blood chemistry [facility] Start: 02-21-2024 End: 02-22-2024 [facility] Start: 02-20-2024 Referral to occupational therapist [facility] Start: 02-20-2024 Referral to service [facility] Start: 02-20-2024 [facility] Start: 02-20-2024 Blood chemistry [facility] Start: 02-20-2024 End: 02-20-2024 [facility] Start: 02-19-2024 [facility] Start: 02-19-2024 Following clinical pathway protocol [facility] Start: 02-19-2024 Ambulation without limitation [facility] Start: 02-19-2024 Assessment of risk of venous thromboembolism [facility] Start: 02-19-2024 Elevation of head of bed [facility] Start: 02-19-2024 Inhalation therapy procedure [facility] Start: 02-19-2024 Insertion of catheter into peripheral vein [facility] Start: 02-19-2024 Measuring intake and output [facility] Start: 02-19-2024 Patient education [facility] Start: 02-19-2024 Providing care according to standard [facility] Start: 02-19-2024 Referral to gastroenterology service [facility] Start: 02-19-2024 End: 02-19-2024 [facility] Start: 02-19-2024 End: 02-19-2024 [facility] Start: 02-19-2024 Bacteria identified in Sputum by Culture [facility] Start: 02-19-2024 Legionella pneumophila Ag [Presence] in Urine [facility] Start: 02-19-2024 Streptococcus pneumoniae antigen assay [facility] Start: 02-19-2024 Verification routine [facility] Start: 02-19-2024 Admission procedure [facility] Start: 02-19-2024 End: 02-19-2024 Blood culture [facility] Start: 02-19-2024 [facility] Start: 02-19-2024 Administration of blood product [facility] Start: 02-19-2024 End: 02-20-2024 [facility] Start: 01-25-2024 End: 01-25-2024 Patient encounter procedure 01/25/2024 12:30 PM EST Office Visit [facility] [address] [place] [id number] Lizz Lynn APRN - CNP [address] [place] [id number] [facility] Start: 01-18-2024 [facility] Start: 01-11-2024 [facility] Start: 01-11-2024 [facility] Start: 12-07-2023 Patient discharge [facility] Start: 12-07-2023 Referral to service [facility] Start: 12-06-2023 Care planning and problem solving actions [facility] Start: 12-05-2023 [facility] Start: 12-04-2023 End: 12-05-2023 [facility] Start: 12-04-2023 Following clinical pathway protocol [facility] Start: 12-03-2023 End: 12-04-2023 [facility] Start: 12-03-2023 Care planning and problem solving actions [facility] Start: 12-03-2023 Care planning and problem solving actions [facility] Start: 12-03-2023 Speech therapy assessment [facility] Start: 12-03-2023 Inhalation therapy procedure [facility] Start: 12-02-2023 [facility] Start: 12-02-2023 Providing care according to standard [facility] Start: 12-02-2023 Ambulation without limitation [facility] Start: 12-02-2023 Assessment of risk of venous thromboembolism [facility] Start: 12-02-2023 Insertion of catheter into peripheral vein [facility] Start: 12-02-2023 Measuring intake and output [facility] Start: 12-02-2023 Oxygen therapy [facility] Start: 12-02-2023 Providing care according to standard [facility] Start: 12-02-2023 Referral to occupational therapist [facility] Start: 12-02-2023 Referral to service [facility] Start: 12-02-2023 Telemedicine consultation with patient [facility] Start: 12-02-2023 [facility] Start: 12-02-2023 Blood culture [facility] Start: 12-02-2023 Verification routine [facility] Start: 12-02-2023 Hospital admission, emergency, from emergency room, medical nature [facility] Start: 12-02-2023 Admission procedure [facility] Start: 12-02-2023 [facility] Start: 12-02-2023 End: 12-02-2023 [facility] Start: 12-02-2023 [facility] Start: 11-27-2023 [facility] Start: 11-27-2023 Oxygen therapy [facility] Start: 11-27-2023 [facility] Start: 11-26-2023 [facility] Start: 11-21-2023 Patient discharge [facility] Start: 11-19-2023 Advance Directive Discussion Advance Directive Discussion [facility] Start: 11-19-2023 Medicare Advantage Annual Wellness Visit Medicare Advantage Annual Wellness Visit [facility] Start: 11-18-2023 Application of intermittent pneumatic compression device [facility] Start: 11-18-2023 Provision of activity privileges [facility] Start: 11-18-2023 Assessment of risk of venous thromboembolism [facility] Start: 11-18-2023 Fall prevention [facility] Start: 11-18-2023 Insertion of catheter into peripheral vein [facility] Start: 11-18-2023 Introduction of urinary catheter [facility] Start: 11-18-2023 Measuring intake and output [facility] Start: 11-18-2023 Providing care according to standard [facility] Start: 11-18-2023 Referral to occupational therapist [facility] Start: 11-18-2023 Referral to service [facility] Start: 11-18-2023 [facility] Start: 11-18-2023 Following clinical pathway protocol [facility] Start: 11-18-2023 Admission procedure [facility] Start: 11-16-2023 Patient discharge [facility] Start: 11-16-2023 Plain chest X-ray Chest 1 View (Portable) [facility] Start: 11-16-2023 XR Chest Single view [facility] Start: 11-16-2023 [facility] Start: 11-15-2023 Respiratory secretion precautions [facility] Start: 11-15-2023 Following clinical pathway protocol [facility] Start: 11-15-2023 Aspiration precautions [facility] Start: 11-15-2023 Assessment of risk of venous thromboembolism [facility] Start: 11-15-2023 Fall prevention [facility] Start: 11-15-2023 Incentive spirometry [facility] Start: 11-15-2023 Inhalation therapy procedure [facility] Start: 11-15-2023 Insertion of catheter into peripheral vein [facility] Start: 11-15-2023 Introduction of urinary catheter [facility] Start: 11-15-2023 Measuring intake and output [facility] Start: 11-15-2023 Oxygen therapy [facility] Start: 11-15-2023 Providing care according to standard [facility] Start: 11-15-2023 Provision of activity privileges [facility] Start: 11-15-2023 Referral to occupational therapist [facility] Start: 11-15-2023 Referral to service [facility] Start: 11-15-2023 [facility] Start: 11-15-2023 Verification routine [facility] Start: 11-15-2023 Admission procedure [facility] Start: 11-15-2023 Hospital admission, emergency, from emergency room, medical nature [facility] Start: 11-15-2023 [facility] Start: 11-15-2023 Consultation [facility] Start: 10-05-2023 [facility] Start: 10-05-2023 [facility] Start: 07-20-2023 COVID-19 Vaccine ( season) COVID-19 Vaccine ( season) [facility] Start: 07-20-2023 Influenza vaccination Influenza Vaccine (#1) [facility] Start: 04-08-2023 [facility] Start: 04-04-2023 End: 04-04-2023 Patient encounter procedure 04/04/2023 Office Visit Neurology Kristopher Main MD [address] [place] [address] [facility] [place] Start: 03-31-2023 [facility] Start: 03-16-2023 Dual energy X-ray absorptiometry Dexa Bone Density Study [facility] Start: 02-20-2022 [facility] Work Phone: Start: 10-21-2021 Patient referral [facility] Work Phone: Start: 04-19-2021 Lipid panel Lipid Panel [facility] Start: 01-19-2021 Screening for malignant neoplasm of colon [facility] Start: 2019 Pneumococcal Vaccine: 65+ (2 of 2 - PCV) Pneumococcal Vaccine: 65+ (2 of 2 - PCV) [facility] Start: 2019 Screening for osteoporosis Bone Density Screening [facility] Start: 12-08-2016 Lipid panel Lipid Screening [facility] Start: 08-19-2016 Diabetes Screening Diabetes Screening [facility] Start: 2014 RSV Immunization aged 60 or older (1 - 1-dose 60+ series) RSV Immunization aged 60 or older (1 - 1-dose 60+ series) [facility] Start: 2014 RSV Immunization for Adults (1 - Risk 60-74 years 1-dose series) RSV Immunization for Adults (1 - Risk 60-74 years 1-dose series) [facility] Start: 08-26-2010 Screening for malignant neoplasm of breast Mammogram Screening [facility] Start: 08-19-2009 Pneumococcal Vaccine: 50+ Years (2 of 2 - PCV) Pneumococcal Vaccine: 50+ Years (2 of 2 - PCV) [facility] Start: 08-19-2009 Pneumococcal Vaccine: 65+ Years (2 - PCV) Pneumococcal Vaccine: 65+ Years (2 - PCV) [facility] Start: 08-19-2009 Pneumococcal Vaccine: 65+ Years (2 of 2 - PCV) Pneumococcal Vaccine: 65+ Years (2 of 2 - PCV) [facility] Start: 2004 Shingrix Vaccine (1 of 2) Shingrix Vaccine (1 of 2) [facility] Start: 2004 Zoster Vaccines (1 of 2) Zoster Vaccines (1 of 2) [facility] Start: 1999 Screening for malignant neoplasm of colon [facility] Start: 1994 Screening for malignant neoplasm of breast Mammogram [facility] Start: 1972 Anxiety Screening Anxiety Screening [facility] Start: 1972 Depression Screening Depression Screening [facility] Start: 1972 Diabetes mellitus screening Diabetes Screening [facility] Start: 1972 Hepatitis C screening Hepatitis C Screening [facility] Start: 1966 Depression Monitoring Depression Monitoring [facility] Start: 1966 Depression Screening Depression Screening [facility] Start: 1954 Echocardiography Echocardiogram [facility] Start: 1954 Hepatitis B Vaccines (1 of 3 - 3-dose series) Hepatitis B Vaccines (1 of 3 - 3-dose series) [facility] Start: 1954 Lipid panel Lipid Panel [facility] Start: 1954 Medicare Advantage Annual Wellness Visit (AWV) Medicare Advantage Annual Wellness Visit (AWV) [facility] Start: 1954 Screening for malignant neoplasm of colon [facility] Start: 1954 Screening for osteoporosis Bone Density Scan [facility] Start: 1954 Thyroid stimulating hormone measurement TSH Level [facility] Alanine aminotransfe rase [Enzymatic activity/volume] in Serum or Plasma [facility] Alanine aminotransfe rase [Enzymatic activity/volume] in Serum or Plasma [facility] Alanine aminotransfe rase [Enzymatic activity/volume] in Serum or Plasma [facility] Albumin [Mass/volume ] in Serum or Plasma [facility] Albumin [Mass/volume ] in Serum or Plasma [facility] Albumin [Mass/volume ] in Serum or Plasma [facility] Albumin/Globulin [Ma ss Ratio] in Serum or Plasma by Electrophoresis [facility] Work Phone: Albumin/Globulin [Ma ss Ratio] in Serum or Plasma by Electrophoresis [facility] Alkaline phosphatase [Enzymatic activity/volume] in Serum or Plasma [facility] Alkaline phosphatase [Enzymatic activity/volume] in Serum or Plasma [facility] Alkaline phosphatase [Enzymatic activity/volume] in Serum or Plasma [facility] Alpha 1 antitrypsin [Mass/volume] in Serum or Plasma [facility] Anion gap measurement [facility] Anion gap measurement [facility] Anion gap measurement [facility] Aspartate aminotrans ferase [Enzymatic activity/volume] in Serum or Plasma [facility] Aspartate aminotrans ferase [Enzymatic activity/volume] in Serum or Plasma [facility] Aspartate aminotrans ferase [Enzymatic activity/volume] in Serum or Plasma [facility] Bacteria identified in Urine by Culture Urine Culture [facility] Bilirubin measurement, urine [facility] Bilirubin measurement, urine [facility] Bilirubin, total measurement [facility] Bilirubin, total measurement [facility] Bilirubin, total measurement [facility] BUN/Creatinine ratio [facility] BUN/Creatinine ratio [facility] BUN/Creatinine ratio [facility] Calcium [Mass/volume ] in Serum or Plasma [facility] Calcium [Mass/volume ] in Serum or Plasma [facility] Calcium [Mass/volume ] in Serum or Plasma [facility] Carbon dioxide, tota l [Moles/volume] in Serum or Plasma [facility] Carbon dioxide, tota l [Moles/volume] in Serum or Plasma [facility] Carbon dioxide, tota l [Moles/volume] in Serum or Plasma [facility] Cardiac event recording [facility] CBC W Auto Different ial panel - Blood [facility] Chloride [Moles/volu me] in Serum or Plasma [facility] Chloride [Moles/volu me] in Serum or Plasma [facility] Chloride [Moles/volu me] in Serum or Plasma [facility] Creatinine [Moles/vo lume] in Serum or Plasma [facility] Creatinine [Moles/vo lume] in Serum or Plasma [facility] Creatinine [Moles/vo lume] in Serum or Plasma [facility] Electrophoresis: albumin [facility] Work Phone: Electrophoresis: albumin [facility] Electrophoresis: [id number] [facility] Work Phone: Electrophoresis: [id number] [facility] Electrophoresis: [id number] [facility] Work Phone: Electrophoresis: [id number] [facility] Electrophoresis: francisco j ma globulin [facility] Work Phone: Electrophoresis: francisco j ma globulin [facility] Globulin measurement [facility] Work Phone: Globulin measurement [facility] Glucose [Mass/volume ] in Serum or Plasma [facility] Glucose [Mass/volume ] in Serum or Plasma [facility] Glucose [Mass/volume ] in Serum or Plasma [facility] Hematocrit [Volume F raction] of Blood [facility] Hematocrit [Volume F raction] of Blood [facility] Hematocrit [Volume F raction] of Blood [facility] Hematocrit [Volume F raction] of Blood [facility] Hemoglobin [Mass/vol ume] in Blood [facility] Hemoglobin [Mass/vol ume] in Blood [facility] Hemoglobin [Mass/vol ume] in Blood [facility] Hemoglobin [Mass/vol ume] in Blood [facility] Hemoglobin [Presence ] in Urine [facility] Hemoglobin [Presence ] in Urine [facility] Measurement of keton es in urine using dipstick [facility] Measurement of keton es in urine using dipstick [facility] Measurement of renal function [facility] Measurement of renal function [facility] Measurement of renal function [facility] Microscopic urinalysis [facility] Microscopic urinalysis [facility] NM Heart Views W str ess and W radionuclide IV [facility] Organism count, micr oscopic method [facility] Patient Education [facility] Work Phone: Patient referral [facility] Work Phone: pH of Urine [facility] pH of Urine [facility] Potassium [Moles/vol ume] in Serum or Plasma [facility] Potassium [Moles/vol ume] in Serum or Plasma [facility] Potassium [Moles/vol ume] in Serum or Plasma [facility] Protein electrophore sis panel - Serum or Plasma [facility] Work Phone: Protein electrophore sis panel - Serum or Plasma [facility] Serum protein electrophoresis [facility] Work Phone: Serum protein electrophoresis [facility] Sodium [Moles/volume ] in Serum or Plasma [facility] Sodium [Moles/volume ] in Serum or Plasma [facility] Sodium [Moles/volume ] in Serum or Plasma [facility] Specific gravity of Urine [facility] Specific gravity of Urine [facility] Total globulins measurement [facility] Work Phone: Total globulins measurement [facility] Total protein measurement [facility] Total protein measurement [facility] Total protein measurement [facility] Troponin T.cardiac [Mass/volume] in Serum or Plasma by High sensitivity method [facility] Urea nitrogen [Mass/ volume] in Serum or Plasma [facility] Urea nitrogen [Mass/ volume] in Serum or Plasma [facility] Urea nitrogen [Mass/ volume] in Serum or Plasma [facility] Urinalysis, blood, qualitative [facility] Urine blood test [facility] Urine dipstick for glucose [facility] Urine dipstick for glucose [facility] Urine dipstick for l eukocyte esterase [facility] Urine dipstick for l eukocyte esterase [facility] Urine dipstick for nitrite [facility] Urine dipstick for nitrite [facility] Urine dipstick for protein [facility] Urine dipstick for protein [facility] Urine examination [facility] Urine examination [facility] Urine microscopy: ep ithelial cells [facility] Urine microscopy: ep ithelial cells [facility] Urine Microscopy: wh ite cells [facility] Urobilinogen [Presen ce] in Urine [facility] Urobilinogen [Presen ce] in Urine [facility] US Heart Transesophageal [facility] White blood cell count [facility] Immunizations Immunization Date Immunization Notes Care Provider [facility] 08-19-2024 influenza, high dose seasonal, preservative-free Dr. Jacinda Benton MD Work Phone: [facility] 08-19-2024 influenza virus vacc ine, unspecified formulation Lizz Lynn [employer] Work Phone: [facility] 08-17-2023 Influenza High-Dose Quadrivalent Dr. Jacinda Benton Work Phone: [facility] 08-17-2023 influenza virus vacc ine, unspecified formulation Mamta Wood [employer] Work Phone: [facility] 09-16-2022 Covid Pfizer Bivalen t Booster Dr. Jacinda Benton Work Phone: [facility] 09-16-2022 Influenza High-Dose Quadrivalent Dr. Jacinda Benton Work Phone: [facility] 09-16-2022 influenza virus vacc ine, unspecified formulation Kristopher Main MD Work Phone: [facility] 05-17-2022 Covid (Moderna) [facility] Work Phone: [facility] 09-21-2021 Covid (Moderna) Dr. Jacinda Scott Work Phone: [facility] 02-09-2021 tetanus toxoid, redu maya diphtheria toxoid, and acellular pertussis vaccine, adsorbed Dr. Jacinda Benton Work Phone: [facility] 01-13-2021 Covid (Moderna) Dr. Jacinda Scott Work Phone: [facility] 12-16-2020 Covid (Moderna) Dr. Jacinda Scott Work Phone: [facility] 08-13-2019 Influenza, high dose seasonal Dr. Jacinda Benton MD Work Phone: [facility] 08-13-2019 influenza, high dose seasonal, preservative-free Dr. Jacinda Benton Work Phone: [facility] 08-13-2019 influenza virus vacc ine, unspecified formulation [place] Work Phone: [facility] 08-20-2018 influenza, injectabl e, quadrivalent, preservative free Dr. Jacinda Benton Work Phone: [facility] 07-20-2011 influenza virus vacc ine, unspecified formulation [place] Work Phone: [facility] 09-01-2009 influenza virus vacc ine, unspecified formulation [place] [place] Work Phone: [facility] 09-18-2008 influenza virus vacc ine, unspecified formulation [place] [place] Work Phone: [facility] 08-19-2008 pneumococcal polysaccharide vaccine, 23 valent [place] [place] Work Phone: [facility] 08-23-2006 diphtheria and tetan us toxoids, adsorbed for pediatric use [place] [place] Work Phone: [facility] Payers Date Payer Category Payer Self-pay [id number] 2022 Medicare O [employer]IC[employer] [id number] 2019 Medicaid [employer] [id number] 2019-Present [phone] [address] [place] [address] Medicaid [id number] 2017 Medicare [id number] 2016 Medicare [id number] 2016 Unknown [id number] 1954 Unknown [id number] Unknown [id number] Unknown [id number] Unknown [id number] Unknown [id number] Unknown [id number] Unknown [id number] Unknown [id number] Unknown [id number] Unknown [id number] Unknown [id number] Unknown [id number] Unknown [id number] Unknown [id number] Unknown [id number] 2.16840.1.641084.3.579.2.462 Unknown [id number] 2.16840.1.626319.3.579.2.462 Unknown [id number] 2.16840.1.121101.3.579.2.462 Unknown [id number] 2.16.840.1.945885.3.579.2.462 Unknown [id number] 2.16840.1.898739.3.579.2.462 Unknown [id number] 2.16.840.1.557330.3.579.2.462 Unknown [id number] 2.16.840.1.446642.3.579.2.462 Unknown [id number] 2.16.840.1.189068.3.579.2.462 Unknown [id number] 2.16.840.1.546811.3.579.2.462 Unknown [id number] 2.16840.1.278839.3.579.2.462 Unknown [id number] 2.16.840.1.913460.3.579.2.462 Unknown [id number] 2.16.840.1.201685.3.579.2.462 Unknown [id number] 2.16.840.1.662551.3.579.2.462 Unknown [id number] 2.16.840.1.911774.3.579.2.462 Unknown [id number] 2.16840.1.656999.3.579.2.462 Unknown [id number] 2..840.1.081618.3.579.2.462 Unknown [id number] 2.840.1.092623.3.579.2.462 Unknown [id number] 2.840.1.212392.3.579.2.462 Unknown [id number] 2.840.1.328153.3.579.2.462 Unknown [id number] 2.840.1.836888.3.579.2.462 Unknown [id number] 2.840.1.212852.3.579.2.462 Unknown [id number] 2..840.1.665753.3.579.2.462 Unknown [id number] 2.840.1.719886.3.579.2.462 Unknown [id number] 2.840.1.581825.3.579.2.462 Unknown [id number] 2.840.1.708366.3.579.2.462 Unknown [id number] 2..840.1.943078.3.579.2.462 Unknown [id number] 2.16.840.1.168978.3.579.2.462 Unknown [id number] 2.16.840.1.383230.3.579.2.462 Unknown [id number] 2.840.1.036327.3.579.2.462 Unknown [id number] 2.16.840.1.291851.3.579.2.462 Unknown [id number] 2.16.840.1.321052.3.579.2.462 Unknown [id number] 2.16.840.1.573923.3.579.2.462 Unknown [id number] 2.16.840.1.301925.3.579.2.462 Unknown [id number] 2.16.840.1.906544.3.579.2.462 Unknown [id number] 2.16.840.1.522428.3.579.2.462 Unknown [id number] 2.16.840.1.948968.3.579.2.462 Unknown [id number] 2.16.840.1.412548.3.579.2.462 Unknown [id number] 2.16.840.1.057708.3.579.2.462 Unknown [id number] 2.16.840.1.112261.3.579.2.462 Unknown [id number] 2.16.840.1.491254.3.579.2.462 Unknown [id number] 2.16.840.1.116710.3.579.2.462 Unknown [id number] 2.16.840.1.498777.3.579.2.462 Unknown [id number] 2.16.840.1.840629.3.579.2.462 Unknown [id number] 2.16.840.1.569457.3.579.2.462 Unknown [id number] 2.16.840.1.171583.3.579.2.462 Unknown [id number] 2.16.840.1.315148.3.579.2.462 Unknown [id number] 2.16.840.1.403315.3.579.2.462 Unknown [id number] 2.16.840.1.632103.3.579.2.462 Unknown [id number] 2.16.840.1.381984.3.579.2.462 Unknown [id number] 2.16.840.1.079104.3.579.2.462 Unknown [id number] 2.16.840.1.068404.3.579.2.462 Unknown [id number] 2.16840.1.389298.3.579.2.462 Unknown [id number] 2.16.840.1.728526.3.579.2.462 Unknown [id number] 2.16840.1.198341.3.579.2.462 Unknown [id number] 2.16840.1.948337.3.579.2.462 Unknown [id number] 2.840.1.028168.3.579.2.462 Unknown [id number] 2.840.1.954544.3.579.2.462 Social History Date Type Detail Facility Start: 02-17-2022 End: 02-21-2024 Tobacco smoking status OKIS Unknown if ever smoked [facility] Start: 01-18-2020 Occasional [facility] Start: 01-18-2020 None [facility] Start: 01-29-2020 Alone [facility] Start: 02-09-2021 Cigarettes [facility] Start: 1955 Sex Assigned At Female [facility] Start: 12-08-2016 End: 03-04-2025 Tobacco smoking status OKIS Smokes tobacco daily [facility] History of tobacco use Cigarette Smoker [facility] Start: 04-04-2023 End: 07-23-2025 Alcohol intake Ex-drinker (finding) [facility] Start: 04-04-2023 End: 07-23-2025 History of Social function [facility] Start: 04-04-2023 End: 07-23-2025 Tobacco use panel [facility] Start: 1955 Sex Assigned At Not on file [facility] Start: 12-08-2016 End: 03-04-2025 Tobacco use and exposure Smokeless tobacco non-user [facility] Start: 11-25-2020 Alcoholic beverage intake Not Asked [facility] National Score (1-100), lower number is lower risk Not on file [facility] Start: 10-26-2020 End: 10-05-2022 Exposure to SARS-CoV-2 (event) Not sure [facility] Start: 06-19-2022 Sex Female (finding) [facility] Start: 04-02-2025 End: 04-20-2025 Tobacco smoking status NHIS Current Light tobacco smoker [facility] NEGATED: Highlighted row [facility] NEGATED: Highlighted row [facility] Medical Equipment Procedure Code Equipment Code Equipment Origin al Text Equipment Identifier Dates GDC aneurysm coil FDA Start: 02-03-2014 GDC aneurysm coil FDA Start: 02-03-2014 Protege GFS stent FDA Start: 08-25-2015 ([id number]) [id number] FDA Start: 01-18-2022 GDC aneurysm coil FDA [...] /State Functional Status Date Assessment Result Facility 06-09-2025 Functional status Ambulates [facility] Work Phone: 06-08-2025 Functional status Fair [facility] Work Phone: 04-22-2025 Functional status Ambulates [facility] Work Phone: 01-13-2025 Functional status Standby Assist [facility] Work Phone: 01-13-2025 Functional status Ambulates;Bathroom Priv ilege [facility] Work Phone: 12-11-2024 Functional status Bathroom Privilege [facility] Work Phone: 02-25-2024 Functional status Ambulates [facility] Work Phone: 12-07-2023 Functional status Ambulates;Chair [facility] Work Phone: 11-21-2023 Functional status Ambulates [facility] Work Phone: 11-16-2023 Functional status Ambulates [facility] Work Phone: 11-09-2022 Functional Status Ambulating in room [facility] 11-09-2022 Functional Status Yesenia cagle 11-09-2022 Functional Status Maintained Yesenia cagle Mental Status Date Assessment Result Facility 07-22-2025 Cognitive function Awake;Alert;A ppropriate;Follow s Commands [facility] Work Phone: 07-05-2025 Cognitive function Awake;Alert;A ppropriate;Follow s Commands [facility] Work Phone: 06-09-2025 Cognitive function Voice/Name [facility] Work Phone: 06-03-2025 Cognitive function Awake;Alert;A ppropriate;Follow s Commands [facility] Work Phone: 05-19-2025 Cognitive function Awake;Alert;A ppropriate;Follow s Commands [facility] Work Phone: 04-22-2025 Cognitive function Voice/Name;Touch/Shaki ng [facility] Work Phone: 04-18-2025 Cognitive function Level Of Cons ciousness Awake;Alert;Appropriate;Follow s Commands [facility] Work Phone: 04-02-2025 Cognitive function Awake;Appropr iate;Follows Commands;Drowsy [facility] Work Phone: 01-13-2025 Cognitive function Voice/Name [facility] Work Phone: 12-11-2024 Cognitive function Voice/Name [facility] Work Phone: 02-25-2024 Cognitive function Voice/Name [facility] Work Phone: 02-19-2024 Cognitive function Awake;Alert;A ppropriate;Follow s Commands [facility] Work Phone: 12-07-2023 Cognitive function Voice/Name [facility] Work Phone: 12-02-2023 Cognitive function Awake;Drowsy [facility] Work Phone: 11-27-2023 Cognitive function Voice/Name [facility] Work Phone: 11-21-2023 Cognitive function Voice/Name [facility] Work Phone: 11-18-2023 Cognitive function Level Of Cons ciousness Awake;Alert;Appropriate;Follow s Commands [facility] Work Phone: 11-16-2023 Cognitive function Voice/Name [facility] Work Phone: 11-15-2023 Cognitive function Level Of Cons ciousness Awake;Alert;Appropriate;Follow s Commands [facility] Work Phone: 10-05-2023 Cognitive function Awake;Alert;A ppropriate;Follow s Commands [facility] Work Phone: 04-08-2023 Cognitive function Level Of Cons ciousness Awake;Alert;Appropriate [facility] Work Phone: 03-16-2023 Cognitive function Level Of Cons ciousness Awake;Alert;Appropriate;Follow s Commands [facility] Work Phone: 11-09-2022 Mental Status Orientation Oriented x [facility] 11-09-2022 Mental Status [facility] 11-09-2022 Mental Status [facility] 02-18-2022 Cognitive function Voice/Name [facility] Work Phone: Clinical Notes 11-25-2020 to 07-23-2025 Lizz Lynn APRN - [facility] - 07/23/2025 12:30 PM EDT Note Date & Type Note Facility 07-23-2025 History of Present illness Narrative Visit type: Established Patient Reason for Visit: Follow-up, Multiple Sclerosis, Results, and Dizziness (/) Assessment and Plan 1. Multiple sclerosis (HCC) - baclofen (Lioresal) 20 MG tablet; Take 1 tablet (20 mg) by mouth 3 times daily., Starting Estrella 07/23/2025, Normal Subjective HPI: REVIEW- 04/12 - ED at [place] for MS flare affective speech, swallowing, VOSS. According to note in care everywhere she presented with generalized weakness and N/V. Was given steroid injection and methylpred from PCP prior, then IV solu-medrol at ED. MRI brain was ordered at last visit to rule out stroke or new lesions- MS- not on DMT Copaxone caused shortness of breath Frequent URI (avoid ocrevus, tysabri, kesimpta) Fatigue with aubagio and tecfidera Interferons make her sick Currently on baclofen 20mg TID Gabapentin 800mg TID Follows with pain management and hospice Follows with Dr. Barnett (vascular surgeon) for vascular issues Carotid study May 2021-Right ICA >70%, Left 50-69% CURRENT - Today, patient states she was in ED last night for SBP 200's. Was in snf for 1 month over June for issues with BP and weakness after having 2 bleeding ulcers and 4 blood transfusions - had PT. She is feeling better since discharge; doing PT at the house. She had MRI brain done at [place] - I do not have the results of those No more issues with trouble swallowing. She had upper GI; states they found a polyp; had it removed; since her trouble swallowing has resolved. lightheaded since getting out of the truck to come up to office; hasn't had anything to eat today, only water to drink. REVIEW OF SYSTEMS: Review of Systems Musculoskeletal: Positive for neck pain. Neurological: Positive for light-headedness. All other systems reviewed and are negative. Allergies[1] Current Medications[2] Medical History[3] Social History Tobacco Use Smoking status: Every Day Current packs/day: 0.25 Types: Cigarettes Smokeless tobacco: Never Substance Use Topics Alcohol use: Not Currently Surgical History[4] Family History[5] Objective Vitals: BP 103/64 (BP Location: Left arm, Patient Position: Sitting, BP Cuff Size: Small adult) Pulse (!) 47 Ht 5' 6 (1.676 m) Wt 106 lb (48.1 kg) BMI 17.11 kg/m General Appearance: Patient is in no [...] TSH VITAMIN B12: No results found for: [id number] No results found for: PHENYTOIN, PHENOBARB, VALPROATE, CBMZ No components found for: TOPIRA @RESULTINGLABINFO@ No results found for: LEVETIRACETA, FERRITIN, CRP, DENNIS, ANCA No results found for: CHRISTIANO, IMMUNOGLOBUL, OLIGOBANDS No results found for: [id number], HEPCAB No results found for: CRP, ANATITER, ANCA FERRITIN: No results found for: FERRITIN ---- ECG 12 lead SINUS BRADYCARDIA PROBABLE LEFT ATRIAL ABNORMALITY No previous ECG available for comparison Electronically Signed On 04-05-2023 7:42:10 EDT by Juvenal Benton [email or web address] IMPRESSION and PLAN: Problem List Items Addressed This Visit None Visit Diagnoses Multiple sclerosis (HCC) Relevant Medications baclofen (Lioresal) 20 MG tablet Stable; she had MRI brain at [place] that I do not have access to; will try to get those. She is not on DMT; continue baclofen 20mg TID and gabapentin 800mg TID. RTO [address] Etelvina Esteves, ANTWON Harrington CNP, furnish ongoing care related to Angélica Yo single, serious and complex condition(s) MS. I assume responsibility for the [...] Salicylates Amitriptyline Rash [2] Current Outpatient Medications: amitriptyline (Elavil) 25 MG tablet, Take 25 mg by mouth daily at bedtime., Disp: , Rfl: cholecalciferol (Vitamin D-3) 125 MCG (5000 UT) capsule, Take 125 mcg by mouth in the morning., Disp: , Rfl: clopidogrel (Plavix) 75 MG tablet, , Disp: , Rfl: Docusate Sodium (DSS) 100 MG capsule, 100 mg., Disp: , Rfl: Eliquis 5 MG tablet, Take 5 mg by mouth 2 times daily., Disp: , Rfl: famotidine (Pepcid) 40 MG tablet, Take 40 mg by mouth daily., Disp: , Rfl: gabapentin (Neurontin) 800 MG [...] times daily as needed., Disp: , Rfl: pantoprazole (ProtoNix) 40 MG EC tablet, Take 40 mg by mouth every morning (before breakfast)., Disp: , Rfl: rosuvastatin (Crestor) 10 MG tablet, Take 10 mg by mouth daily., Disp: , Rfl: baclofen (Lioresal) 20 MG tablet, Take 1 tablet (20 mg) by mouth 3 times daily., Disp: 90 tablet, Rfl: 3 [3] Past Medical History: Diagnosis Date Aneurysm (HCC) CAD (coronary artery disease) Carotid stenosis Multiple sclerosis (HCC) [4] Past Surgical History: Procedure Laterality Date CAROTID ENDARTERECTOMY [5] No family history on file. documented in this encounter [facility] 07-23-2025 Radiology Diagnostic study note [facility] 07-22-2025 Discharge summary Note Date/Time July 23, 2025 12:41am [facility] Medical Records Department [address] [place] [address] Emergency Department Summary 07/22/25 MR#: [id number] Acct: [id number] Name: ANGÉLICA YO Rep #:[id number] : 1955 70 From: Ramírez Onofre MD PCP: Dr. Jacinda Benton MD Status:REG ER Location: ED [facility] History of Present Illness Chief Complaint: Headache Informant: patient Onset/Context/Timing Onset: Today Context: Gradual Timing: Continuous Quality -Headache: Positive for Similar Prior Headaches Current Severity: Moderate Maximum Severity: Moderate Associated Symptoms/Injury Associated Symptoms: Positive for Nausea; Negative for Fever, Vomiting, Sore Throat, Sinus Pressure or Preceding Aura Injury - VOSS: Negative for Direct Trauma, Fall or Assault Narrative Narrative: 70-year-old female history of A-fib, TIA on blood thinner Eliquis. Also has hada carotid bypass. States that tonight she felt her blood pressure was elevated 200 over around 100. She started gradually getting a headache about 2 hours agoprimarily behind her right eye. Denies any fall injury or trauma. She has mildnausea. Denies any weakness to her upper or lower extremities. No visual change. The light does bother her eyes. Denies any fever or neck pain. Prior similar symptoms: Yes Recent Illness/Hospitalization: No [facility] Medical History Hypertensive emergency NSTEMI, initial episode of care Mitral stenosis On home oxygen therapy Atrial fibrillation Chronic low back pain Diastolic hypertension Elevated troponin Chest pain PAF (paroxysmal atrial fibrillation) Emphysema of lung Smoking greater than 30 pack years Nicotine dependence, cigarettes, uncomplicated New onset atrial fibrillation Elevated troponin Atrial fibrillation Hypothyroidism Smoker Coronary artery disease TIA (transient ischemic attack) Influenza A [place] (dyspnea on exertion) Atherosclerotic heart disease of [place] coronary artery without angina pectoris Cardiac murmur Nonsustained paroxysmal supraventricular tachycardia Multiple sclerosis Nonobstructive atherosclerosis of coronary artery Peripheral vascular occlusive disease Essential (primary) hypertension Bilateral carotid artery stenosis History of transient ischemic attack (TIA) Fatty liver Thrombocytopenia GERD (gastroesophageal reflux disease) Psoriatic arthritis Psoriasis Osteoporosis Osteoarthritis Goiter Multiple sclerosis HLD (hyperlipidemia) Angina pectoris Chronic pain syndrome Home Medications ?Medication ?Instructions ?Recorded ?Last Taken ?Type levothyroxine 50 mcg tablet 50 mcg PO DAILY thyroid 04/21/25 History dextromethorphan-guaifenesin ER 60 1 tab PO Q12H PRN c ough/congest 02/19/24 03/19/25 History mg-1,200 mg tab,extend release,12hr (Mucinex DM) famotidine 40 mg tablet 40 mg PO QDAY PRN indigestio n 11/24/24 03/19/25 History apixaban 5 mg tablet (Eliquis) 5 mg PO Q12H anticoagul ation #180 03/09/25 03/19/25 Rx Held on 06/07/25. tabs Instructions: Resume on 06/18/25. cholecalciferol (vitamin D3) 125 125 mcg PO DAILY supp lement 04/18/25 Unknown History mcg (5,000 unit) capsule docusate sodium 100 mg capsule 100 mg PO BID stool sof tener 7 04/18/25 Unknown Rx (Colace) days #14 caps doxepin 10 mg/mL oral concentrate 5 - 10 mg PO QHS staci k 04/18/25 Unknown History rosuvastatin 10 mg tablet 10 mg PO QHS hld 04/18/25 Un known History polysaccharide iron complex 150 mg 150 mg PO DAILY 90 days #90 caps 04/22/25 Unknown Rx iron capsule (Ferrex) amlodipine 2.5 mg tablet 2.5 mg PO QDAY bp 05/13/25 U nknown History capsaicin 0.1 % topical cream 1 applic topical TID #60 grams 05/19/25 Unknown Rx food supplemt, lactose-reduced 120 ml PO TIDCM #21,330 mL 06/07/25 Unknown Rx 0.08 gram-1.5 kcal/mL oral liquid (Ensure Plus High Protein) pantoprazole 40 mg tablet,delayed 40 mg PO BID #120 ta bs 06/07/25 Unknown Rx release (Protonix) baclofen 10 mg tablet 10 mg PO TID #0 tabs 5 Unknown Rx furosemide 40 mg tablet 40 mg PO BIDLX #0 tabs 06/09 Unknown Rx gabapentin 300 mg capsule 300 mg PO TID #0 caps Unknown Rx oxycodone 5 mg tablet 10 mg (2 x 5 mg) PO Q6H PRN PRN 06/09/25 Unknown Rx Pain Score 4-10 3 days #15 tabs pantoprazole 40 mg tablet,delayed 40 mg PO BIDCM #1 TA B 06/09/25 Unknown Rx release (Protonix) paroxetine HCl 10 mg tablet 10 mg PO DAILY #0 tabs Unknown Rx potassium chloride 20 mEq 20 meq PO BIDCM #0 tabs 05/20 01/13 Unknown Rx tablet,extended release(part/cryst) quetiapine 25 mg tablet 50 mg (2 x 25 mg) PO QHS #0 tabs 06/09/25 Unknown Rx carvedilol 3.125 mg tablet 3.125 mg PO BIDCM heart #18 0 tabs 07/22/25 Unknown Rx Allergy/AdvReac Type Severity Reaction Status Date / Time colestipol (From Colestid) Allergy Mild unknown Verified 07/22/25 21:55 pregabalin (From Lyrica) Allergy Mild Hives Verified 07/22/25 21:55 amitriptyline Allergy Rash Verified 07/22/25 21:55 temazepam (From Restoril) AdvReac Mild Nausea/Vom/ Verified 07/22/25 21:55 Diarrhea Antihistamines - Alkylamine AdvReac Nausea/Vom/ Verified 07/22/25 21:55 Diarrhea Antihistamines - Ethanolamine AdvReac Nausea/Vom/ Verified 07/22/25 21:55 Diarrhea Antihistamines - AdvReac Nausea/Vom/ Verified 07/22/25 21:55 Ethylenediamine Diarrhea Antihistamines - Piperazine AdvReac Nausea/Vom/ Verified 07/22/25 21:55 Diarrhea Antihistamines - Piperidine AdvReac Nausea/Vom/ Verified 07/22/25 21:55 Diarrhea aspirin AdvReac I'M ON Verified 07/22/25 21:55 BLOOD THINNERS codeine AdvReac Nausea Verified 07/22/25 21:55 Corticosteroids AdvReac Upset Verified 07/22/25 21:55 (Glucocorticoids) Stomach morphine AdvReac Nausea Verified 07/22/25 21:55 [id number] Reductase AdvReac Nausea Verified 07/22/25 21:55 Inhibitor (Jnofhfs-Tai-Ptb Reductase Inhibitor) Family History Mother Cancer CAD [...] and tea ROS ROS ED ROS Narrative Headache. Constitutional Constitutional ED: Denies chills or fever(s) Eyes Eyes: Denies blurry vision ENT ENT ED: Denies ear pain Cardiovascular Cardiovascular: Denies chest pain Respiratory/Chest Respiratory/Chest: Denies cough or dyspnea Gastrointestinal Gastrointestinal: Denies abdominal pain Genitourinary Genitourinary ED: Denies dysuria or hematuria Musculoskeletal Musculoskeletal: Denies arthralgias Integumentary Denies abscess or Abrasions Neurologic Neurologic: Reports headache(s); Denies paresthesias Psychiatric Psychiatric: Denies anxiety or depression Endocrine Endocrinology: Denies polydipsia Hematologic/Lymphatic Hematologic/Lymphatic: Denies easy bleeding or easy bruising Allergic/Immunologic Allergic/Immunologic ED: Denies mouth swelling, tongue swelling or urticaria EXAM Physical Exam Narrative Exam Narrative: 70-year-old female sitting upright in bed in a darkened room. Vital signs stable except blood pressure is elevated 212/94. She does not look septic toxicor in distress. H EENT exam pupils round react to light. Extra motions are intact. No signs of trauma to her face or scalp. No bruising or swelling. No tenderness. Neck nontender no meningismus no lymphadenopathy. Back nontender. Lungs clear to auscultation bilaterally. Heart rate about 75 no murmur. Chest wall and ribs nontender. Moving all 4 extremities. Calves are nontender without edema or cords. 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 Dorsi plantarflexion intact. Neurologic exam she is awake alert. Answer questions following commands. Normal speech. No facial droop. Again normal sheet metal duct installer strength and dorsi plantarflexion. Fingertip to nose within normal limits no drift. NIH 0. Const Vital Signs: 07/22/25 21:56 07/22/25 23:30 07/22/25 23:31 Temperature 97.7 F L Temperature Source Temporal Pulse Rate 74 67 Respiratory Rate 18 Respiratory Effort Normal Non-Labored Respiratory Pattern Normal Blood Pressure 212/94 H 180/86 H Blood Pressure Mean 133 117 Pulse Ox 98 Oxygen Delivery Method Room Air Positive well nourished and well developed; Negative for obese, cachectic, contractures or unkempt General Appearance ED: well developed and NAD; Negative for unkempt, cachectic, contractures, cyanotic or diaphoretic Nutritional Appearance: Negative for cachectic or obese HEENT Reports normocephalic and moist mucous membranes atraumatic; Negative for trauma, tenderness, temporal artery tenderness or vesicular rash Face and Sinus: Negative for sinus tenderness Eyes PERRL and EOMs intact bilaterally General Eye ED: Negative for pale conjunctiva Neck no lymphadenopathy, supple, no meningeal signs and no JVD Resp normal respiratory effort and clear to auscultation bilaterally Cardio regular rate, regular rhythm, S1 normal heart sound, S2 normal heart sound and no murmurs GI non-tender and non-distended Auscultation: normoactive bowel sounds Palpation: soft; Negative for firm, tender or guarding Back/Spine no CVA tenderness General Back: Negative for CVA tenderness or tenderness Cervical Spine: Negative for cervical spine tenderness Thoracic Spine / Upper Back: Negative for thoracic spinal tenderness Lumbar Spine / Lower Back: Negative for lumbar spinal tenderness Extremity normal to inspection, full ROM and normal capillary refill Neuro oriented x3 and CN's II-XII intact bilaterally Sensorium / Orientation: awake, alert, oriented to person, oriented to place andoriented to time; Negative for orientation impaired, lethargic or stuporous Coordination / Balance: [id number] test normal Speech: speech normal Motor Exam: strength 5/5 throughout Psych mental status grossly normal Appearance: Negative for unkempt Skin General Skin Exam: elasticity normal; Negative for turgor normal Lesions: no lesions Rashes: no rashes MDM MDM MDM Narrative Medical decision making narrative: 70-year-old female elevated blood pressure on the blood thinner Eliquis due to A-fib with a headache. Also has a history of a coiled prior brain aneurysm. CAT scan. Benign exam. She be treated with Zofran for her nausea Tylenol for pain and Lopressor for pressure. Repeat exam patient doing well at 12:13 AM. Headache is resolved. Neurologic exam remains normal. Blood pressure is improving at 176/81. She is resting comfortably. Appears well. Currently does not need anything for pain or otherwise. Repeat exam patient is doing well at 12:40 AM. She feels good. We went over her CAT scan and lab results she is comfortable being discharged home. Blood pressure is better. And clinically she is feeling much better. Repeat neurologic exam is normal. History & Record Review Discussion w/independent historian: Patient Additional record(s) reviewed:: Prior inpatient record, Prior outpatient record,Prior ED visit and Prior labs Lab Data Attestation: I reviewed the patient's lab results. Lab results narrative: CBC shows a normal white count of 6. H&H 11.6 and 36. Platelets 147. Electrolytes show a gap of 10. BUN and creatinine of 29 and 1.1. Glucose 125. All consistent with prior labs. Labs: Laboratory Results - last 24 hr 07/22/25 23:40 WBC 6.8 RBC 4.27 Hgb 11.6 L Hct 36.7 L MCV 85.9 MCH 27.2 MCHC 31.6 L RDW Std Deviation 59.1 H RDW Coeff of David 18.6 H Plt Count 147 L MPV 9.5 Immature Gran % (Auto) 1.200 H Neut % (Auto) 70.7 H Lymph % (Auto) 12.6 L Johnston % (Auto) 9.6 Eos % (Auto) 5.0 Baso % (Auto) 0.9 Absolute Neuts (auto) 4.8 Absolute Lymphs (auto) 0.86 Nucleated RBC % 0 Sodium 139 Potassium 4.0 Chloride 94 L Carbon Dioxide 34.0 H Anion Gap 10 BUN 29 H Creatinine 1.14 Estim Creat Clear Calc 35.46 L Est GFR (MDRD) Non-Af 51 L BUN/Creatinine Ratio 25.8 H Glucose 125 H Calcium 9.4 Discharge Plan Triage Chief Complaint: Headache Other Complaint: Hypertension ED Provider: Ramírez Onofre Dx/Rx/DC Orders Clinical Impression: Acute headache, Chronic anticoagulation, Hypertension Instructions: ED Headache Unspecified, ED Hypertension, Established Prescriptions: No Action levothyroxine 50 mcg tablet 50 mcg PO DAILY Patient Comments: take 1 tablet by mouth once daily famotidine 40 mg tablet 40 mg PO [...] PO DAILY 90 Days Qty: 90 0RF capsaicin 0.1 % cream 1 applic topical TID Qty: 60 0RF Rx Instructions: do not wash area for at least 30 min after application docusate sodium [Colace] 100 mg capsule 100 mg PO BID 7 Days Qty: 14 0RF Ensure Plus High Protein 0.08 gram-1.5 kcal/mL Liquid 120 ml PO TIDCM Qty: 95859 0RF pantoprazole [Protonix] 40 mg tablet,delayed release (DR/EC) 40 mg PO BID Qty: 120 0RF furosemide 40 mg Tablet 40 mg PO BIDLX Qty: 0 0RF baclofen 10 mg Tablet 10 mg PO TID Qty: 0 0RF oxycodone 5 mg Tablet 10 mg PO Q6H PRN PRN (Reason: Pain Score 4-10) 3 Days Qty: 15 0RF quetiapine 25 mg Tablet 50 mg PO QHS Qty: 0 0RF paroxetine HCl 10 mg Tablet 10 mg PO DAILY Qty: 0 0RF potassium chloride 20 mEq Tablet,Er Particles/Crystals 20 meq PO BIDCM Qty: 0 0RF gabapentin 300 mg Capsule 300 mg PO TID Qty: 0 0RF pantoprazole [Protonix] 40 mg tablet,delayed release (DR/EC) 40 mg PO BIDCM Qty: 1 0RF Eliquis 5 mg tablet 5 mg PO Q12H Qty: 180 3RF amlodipine 2.5 mg tablet 2.5 mg PO QDAY carvedilol 3.125 mg tablet 3.125 mg PO BIDCM Qty: 180 3RF Primary Care Provider: Jacinda Benton Referrals: Jacinda Benton MD [Primary Care Provider] - 3-5 Days if not improving Activity Restrictions/Additional Instructions: Check your blood pressures twice daily over the next 5 to 7 days. Follow-up with your primary care physician if your blood pressures are running reasonably well. Take your medications as prescribed. Tylenol for pain. Print Language: Surinamese Disposition Disposition: Home, Self Care What to do if you have Problems For any increased pain, shortness of breath, bleeding, nausea or vomiting, chestpain, or any unexpected problems, contact your Primary Care Provider. Call [facility] ([phone]) or report to the closest Emergency Room. Call 911 if necessary. 07/23/25 0041 <Electronically signed by Ramírez Onofre MD> Cosigner Signature (if applicable): CC: Dr. Jacinda Benton MD ~ Signed [facility] Work Phone: 1(635) 530-283109-03-2025 Hospital Discharge instructionsAdditional Instructions Check your blood pressures twice daily over the next 5 to 7 days. Follow-up with your primary care physician if your blood pressures are running reasonably well. Take your medications as prescribed. Tylenol for pain.[facility] Work Phone: 1(383) 766-100508-17-2025 Radiology Diagnostic [facility]07-22-2025 Discharge summary Author Dex [facility] Note Date/Time June 09, 2025 4:22 pm [facility] Medical Records Department [address] [place] [address] Transfer to [facility] MR#: [id number] Acct: [id number] Name: ANGÉLICA YO Rep #:[id number] : 1955 69 From: Dex Worrell DO PCP: Dr. Jacinda Benton MD Status:ADM IN Certification of patient admission REQUIRED AT TIME OF ADMISSION. I CERTIFY THAT POST-HOSPITAL F SERVICES ARE REQUIRED TO BE GIVEN ON AN IN-PATIENT BASIS BECAUSE OF THE ABOVE NAMED PATIENT'S NEED FOR ALF CARE ON A CONTINUING BASIS FOR THE CONDITION(S) FOR WHICH HE/SHE WAS RECEIVING IN-PATIENT HOSPITAL SERVICES PRIOR TO HIS/HER TRANSFER TO THE [facility]. 06/09/25 1622<Electronically signed by Dex Tereletsky DO> Diet Diet Order/Speech Therapy: INPATIENT Hospital Diet / Speech Therapy Order(s) 06/06/25 09:05 Diet: Regular - General Food consistency:: Easy to Chew Routine Orders/Code Status Routine Lab Work: CBC (in 5 days) Code Status: Full Code DC O2, CPAP, BIPAP needs Home O2 Discharge instructions: Yes Type of respiratory needs?: Oxygen Oxygen frequency: With Sleeping Oxygen liters per minute when sleepin Wound(s) L foot 4th and 5th digit: Wound Type: Abrasion Therapies Weight Bearing: Full weight bearing Physical Therapy: Eval and Treat Occupational Therapy: Eval and Treat Problem/Diagnosis (1) Congestive heart failure: Status: Acute Code(s): I50.9 - Heart failure, unspecified (2) DDD (degenerative disc disease), lumbosacral: Status: Acute Code(s): M51.37 - Other intervertebral disc degeneration, lumbosacral region Plan 1. Acute right-sided heart failure-I have decided to place the patient back on diuretics, I do not think she had diastolic congestive heart failure. #2 acute anemia secondary to acute GI blood loss exacerbated by use of chronic anticoagulants-patient is off anticoagulation at the present time, hemoglobin appears to be stable at this time, continue PPI #3 chronic obstructive pulmonary disease-continue present medication, complicates care, management, recovery, and prognosis #4 paroxysmal atrial fibrillation-again patient is off of anticoagulation at this point due to her GI bleed, I would recommend staying off the anticoagulation for 2 weeks, then a decision would need to be made about resuming it #5 hyperlipidemia-patient is on a statin presently #6 hypothyroidism-patient is on Synthroid #7 Encephalopathy- I have elected to change the patient's gabapentin to 300 mg tid and I have elected to decrease the patient's baclofen to 10 mg 3 times dailydue to the fact nursing has reported periods of confusion with the patient. #8 acute on chronic debility-PT and OT will continue to see the patient, she will need temporary placement in nursing home facility for short-term skilledservices #9 gastric ulcer-patient will remain on a PPI #10 alpha 1 antitrypsin deficiency carrier` Total clinical time spent by myself addressing the patient's medical issues, reviewing all of her data, and collaborating with patient's care team: 50 minutes Allergies/Procedures Done in Hospital Allergies colestipol (From Colestid) Allergy (Mild, Verified 06/03/25 02:30) unknown pregabalin (From Lyrica) Allergy (Mild, Verified 06/03/25 02:30) Hives amitriptyline Allergy (Verified 06/03/25 02:30) Rash temazepam (From Restoril) Adverse Reaction (Mild, Verified 06/03/25 02:30) Nausea/Vom/Diarrhea Antihistamines - Alkylamine Adverse Reaction (Verified 06/03/25 02:30) Nausea/Vom/Diarrhea Antihistamines - Ethanolamine Adverse Reaction (Verified 06/03/25 02:30) Nausea/Vom/Diarrhea Antihistamines - Ethylenediamine Adverse Reaction (Verified 06/03/25 02:30) Nausea/Vom/Diarrhea Antihistamines - Piperazine Adverse Reaction (Verified 06/03/25 02:30) Nausea/Vom/Diarrhea Antihistamines - Piperidine Adverse Reaction (Verified 06/03/25 02:30) Nausea/Vom/Diarrhea aspirin Adverse Reaction (Verified 06/03/25 02:30) I'M ON BLOOD THINNERS codeine Adverse Reaction (Verified 06/03/25 02:30) Nausea Corticosteroids (Glucocorticoids) Adverse Reaction (Verified 06/03/25 02:30) Upset Stomach morphine Adverse Reaction (Verified 06/03/25 02:30) Nausea Jdkzuna-NIR-WdL Reductase Inhibitor (Tjphpuo-Nrm-Oxh Reductase Inhibitor) Adverse Reaction (Verified 06/03/25 02:30) Nausea Procedures: None Type of Care/Length of Stay Estimated LOS: Convalescent Care Less Than 30 days Type of Care Needed: Skilled Rehab Potential: Fair Prognosis: Fair Additional Orders/Day of Discharge Day of Discharge: 06/09/25 Dietary and Speech Recommendations Dietitian Recommendations/Changes: Continue Regular diet with ddgb-or-rdes foods; thin liquids Continue 120ml EPHP TID with medpass. Will continue to monitor weight trends. Discharge Plan Admission Admit Date/Time: 06/03/25 07:37 Primary Reason for Your Visit: Right-sided heart failure, acute anemia Attending Provider: Dex Worrell Primary Care Provider: Jacinda Benton Consulting Providers: Roman Mckeon Instructions Additional Instructions / Restrictions: Consider resuming Eliquis 5 mg bid in two weeks if the patient accepts the risk vs the benefits of the medicine Discharge Orders/Prescriptions Prescriptions: New Ensure Plus High Protein 0.08 gram-1.5 kcal/mL Liquid 120 ml PO TIDCM Qty: 70681 0RF pantoprazole [Protonix] 40 mg tablet,delayed release (DR/EC) 40 mg PO BID Qty: 120 0RF furosemide 40 mg Tablet 40 mg PO BIDLX Qty: 0 0RF baclofen 10 mg Tablet 10 mg PO TID Qty: 0 0RF oxycodone 5 mg Tablet 10 mg PO Q6H PRN PRN (Reason: Pain Score 4-10) 3 Days Qty: 15 0RF quetiapine 25 mg Tablet 50 mg PO QHS Qty: 0 0RF paroxetine HCl 10 mg Tablet 10 mg PO DAILY Qty: 0 0RF potassium chloride 20 mEq Tablet,Er Particles/Crystals 20 meq PO BIDCM Qty: 0 0RF gabapentin 300 mg Capsule 300 mg PO TID Qty: 0 0RF Continued levothyroxine 50 mcg tablet 50 mcg PO DAILY Patient Comments: take 1 tablet by mouth once daily famotidine 40 mg tablet 40 mg PO [...] PO DAILY 90 Days Qty: 90 0RF capsaicin 0.1 % cream 1 applic topical TID Qty: 60 0RF Rx Instructions: do not wash area for at least 30 min after application docusate sodium [Colace] 100 mg capsule 100 mg PO BID 7 Days Qty: 14 0RF amlodipine 2.5 mg tablet 2.5 mg PO QDAY Changed pantoprazole [Protonix] 40 mg tablet,delayed release (DR/EC) 40 mg PO BIDCM Qty: 1 0RF Held Eliquis 5 mg tablet 5 mg PO Q12H Qty: 180 3RF Hold Instructions: Resume on 06/18/25. Discontinued gabapentin 800 mg tablet 800 mg PO TID baclofen 20 mg tablet 20 mg PO Q6H oxycodone 10 mg tablet 10 mg PO Q6H PRN Patient Comments: take 1 tab q6 PRN for pain potassium chloride 20 mEq/15 mL Liquid 20 meq PO DAILY 30 Days Qty: 450 0RF misoprostol 100 mcg tablet PO aspirin 81 mg Tablet,Delayed Release (Dr/Ec) 81 mg PO BREAKFAST Qty: 30 2RF Movantik 25 mg tablet 25 mg PO DAILY 30 Days Qty: 30 0RF Rx Instructions: must be taken on empty stomach; no food 1 hr after or 2-3 hrs before dose carvedilol 3.125 mg tablet 3.125 mg PO BIDCM Qty: 180 3RF lisinopril 10 mg tablet 10 mg PO QDAY Referrals / Follow Up: Jacinda Benton MD [Primary Care Provider] - Disposition Disposition (needs filled in before D/C Order can be placed): Home Health Service 06/09/25 1622 <Electronically signed by Dex Worrell DO> Cosigner Signature (if applicable): CC: Dr. Roman Mckeon MD; Dr. Jacinda Benton MD ~ [facility] Work Phone: 1(696) 411-711407-22-[address] [facility]07-22-2025 Hospital Discharge instructionsAdditional Instructions Consider resuming Eliquis 5 mg bid in two weeks if the patient accepts the risk vs the benefits of the medicine Date of Discharge: 06/09/25[facility] Work Phone: 1(122) 743-114307-21-2025 Progress note Author Dex Worrell [facility] Note Date/Time June 08, 2025 8:13 pm [facility] Medical Records Department [address] [place] [address] Progress Note - Hospitalist 06/08/251943 MR#: [id number] Acct: [id number] Name: ANGÉLICA YO Rep #:[id number] : 1955 69 From: Dex Worrell DO PCP: Dr. Jacinda Benton MD Status:ADM IN Location: [place] [address] Reason for Visit Chief Complaint: Bilateral lower extremities swelling Subjective Subjective Patient was seen and examined today, she appears frail and weak, I talked her about going to a skilled care facility for short-term rehab services and she wasnot against this. Her son came in this afternoon and talk with the patient and he agrees that this is the best course. Objective Data Objective Data Vital Signs: Vital Signs Temp Pulse Resp BP Pulse Ox O2 Del Method O2 Flow Rate 98.0 F 80 18 169/94 H 97 Room Air 2 06/08/25 15:29 06/08/25 15:29 06/08/25 15:29 06/08/25 15:29 06/08/25 15:29 06/08/25 15:29 06/08/25 09:28 Oxygen Flow Rate (L/min) 2 Oxygen Delivery Method Room Air Weight: 51.755 kg Body Mass Index (BMI) 19.0 Intake & Output: Intake and Output for Last 24 Hours 06/06/25 06/07/25 06/08/25 23:59 23:59 23:59 Intake Total 840 / 840 340 / 340 1130 / 1130 Output Total 150 / 150 Balance 840 / 840 190 / 190 1130 / 1130 Medical Nutrition Assessment Dietitian: Malnutrition Criteria Met Start: 06/03/25 14:52 Freq: Status: Active Protocol: Document 06/03/25 14:52 SB (Rec: 06/03/25 14:52 SB [id number]) Nutrition Malnutrition Evidence of Yes Malnutrition Exists Malnutrition (severe Chronic ): Evidenced By Suboptimal Energy Intake (Moderate),Weight Loss (Severe ) Clinical Problem Chronic Disease or Condition Related Malnutrition Etiology moderate to severe malnutrition related to inadequate oral/energy intake Signs/Symptoms as evidenced by PO meeting <50% of estimated nutrition needs x 2-3 days and 9% unintentional weight loss x5 months. Status Active Problem Recommendation Dietitian Recommend advanced diet as tolerated to liberal regular Recommendations/ . Changes Continue 120ml EPHP TID with medpass. Will monitor weight trends. Lab / Micro Data 06/08/25 06:53 06/08/25 06:53 Labs: Laboratory Results - last 24 hr 06/08/25 06:53: WBC 10.1, RBC 3.45 L, Hgb 9.0 L, Hct 29.5 L, MCV 85.5, MCH 26.1 L, MCHC 30.5 L, RDW Std Deviation 59.3 H, RDW Coeff of David 18.8 H, Plt Count 109L, MPV 9.6, Immature Gran % (Auto) 0.500, Neut % (Auto) 86.9 H, Lymph % (Auto) 5.5 L, Johnston % (Auto) 5.2, Eos % (Auto) 1.4, Baso % (Auto) 0.5, Absolute Neuts (auto) 8.8 H, Absolute Lymphs (auto) 0.55 L, Nucleated RBC % 0, Sodium 141, Potassium 4.4, Chloride 106, Carbon Dioxide 25.4, Anion Gap 10, BUN 13, Creatinine 1.04, Estim Creat Clear Calc 41.12 L, Est GFR (MDRD) Non-Af 58 L, BUN/Creatinine Ratio 12.1, Glucose 157 H, Calcium 9.0 Micro: Microbiology 06/03/25 03:39 Stool Stool Occult Blood (CARMEN) - Final Radiography Diagnostic Testing: Radiology Impression Brain CT 06/07/25 20:07 IMPRESSION: 1. No new evidence of an acute intracranial abnormality. 2. 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 Reading Location: [facility] Chest CT 06/07/25 20:07 IMPRESSION: 1. Interlobular septal thickening with diffuse bronchial wall thickening and consolidation at the posterior lung bases, which may represent some combination of pulmonary edema, atelectasis, and/or infection/inflammation. 2. Moderate right and small left pleural effusions. 3. Enlarged main pulmonary artery suggestive of pulmonary hypertension. 4. Mild thoracic lymphadenopathy is likely reactive. Reading Location: [facility] Physical Exam Const alert and no apparent distress Constitutional Narrative: Patient appears older than her stated age General Appearance: cooperative, well kempt and well developed Orientation / Consciousness: awake, oriented to person and oriented to place HEENT normocephalic, head/scalp atraumatic and moist oral mucous membranes Eyes PERRL, EOMs intact bilaterally and conjunctivae normal Neck supple, no JVD, thyroid normal and no carotid bruits General: trachea midline Resp normal respiratory effort, no retractions, no use of accessory muscles and clearto auscultation bilaterally Auscultation: Negative for rales, rhonchi or wheezes Cardio regular rate, regular rhythm, S1 normal heart sound, S2 normal heart sound, no murmurs, no rub and no gallops GI normal to inspection, nondistended, normoactive bowel sounds, soft to palpation,non-tender and non-distended Extremity no clubbing, cyanosis or edema Skin no rashes or lesions noted General Skin Exam: no breakdown Neuro CN's II-XII intact bilaterally, moves all extremities, no focal motor deficits and no sensory deficits noted Sensorium / Orientation: awake, alert, oriented to person and oriented to place Speech: speech normal Psych Psych Narrative: Patient has flat affect Assessment & Plan Assessment/Plan (1) Congestive heart failure: PLAN: Plan 1. Acute right-sided heart failure-I have decided to place the patient back on diuretics, I do not think she had diastolic congestive heart failure. #2 acute anemia secondary to acute GI blood loss exacerbated by use of chronic anticoagulants-patient is off anticoagulation at the present time, hemoglobin appears to be stable at this time, continue PPI #3 chronic obstructive pulmonary disease-continue present medication, complicates care, management, recovery, and prognosis #4 paroxysmal atrial fibrillation-again patient is off of anticoagulation at this point due to her GI bleed #5 hyperlipidemia-patient is on a statin presently #6 hypothyroidism-patient is on Synthroid #7 the patient's gabapentin to 300 mg and I have elected to decrease the patient's baclofen to 10 mg 3 times daily due to the fact nursing has reported periods of confusion with the patient. #8 acute on chronic debility-PT and OT will continue to see the patient, she will need temporary placement in nursing home facility for short-term skilledservices Total clinical time spent by myself addressing the patient's medical issues, reviewing all of her data, and collaborating with patient's care team: 50 minutes Charges/Coding Visit Charges Inpatient E&M: 30534 Subs Hosp L3 06/08/252012 <Electronically signed by Dex Worrell DO> Cosigner Signature (if applicable): CC: ~ Signed [facility] Work Phone: 1(369) 750-304207-20-2025 Radiology Diagnostic [facility]07-20-2025 Radiology Diagnostic study [facility]07-20-2025 Discharge summary Author Roman Mckeon [facility] Note Date/Time June 07, 2025 11:[facility] [address] [place] [address] Discharge Summary 06/07/25 1052 MR#: [id number] Acct: [id number] Name: ANGÉLICA YO Rep #:[id number] : 1955 69 From: Roman Mckeon MD PCP: Dr. Jacinda Benton MD Status:ADM IN Location: [place] [address] Providers Date of Admission: 06/03/25 Date of Discharge: 06/07/25 Primary Care Physician: Dr. Jacinda Benton MD Consultations 06/03/25 08:34 Consult: Gastroenterology Routine Consulting Provider: [facility] Reason for Consult: GI bleed EMERGENT Consult: Yes MD Notified: Yes Date Notified: 06/03/25 Time Notified: 07:45 Method of Notification: ED Physician Initiated Reason For Visit: ANEMIA Diagnosis Discharge Diagnosis (1) Anemia: Status: Acute Code(s): D64.9 - Anemia, unspecified (2) Congestive heart failure: Status: Acute Code(s): I50.9 - Heart failure, unspecified Plan Patient is a 69-year-old lady who presented with swelling involving both lower extremities found to have hemoglobin of 5.2 1. Acute congestive heart failure with preserved ejection fraction ? Pressure titrated by patient's severe anemia. Patient has been admitted to monitored bed placed on strict input and output, daily weights, fluid restriction IV furosemide ? 06/04/2025; echo from 01/11/2025 demonstrated EF of 70%. With patient blood pressure running on the low side decreased furosemide dose 2. Acute symptomatic anemia ? Patient hemoglobin on admission was 5.2. 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 Treated with a heater probe. Colonoscopy revealed One 10 mm polyp at the splenic flexure, removed with a hot snare. Resected and retrieved. - Diverticulosis in the recto-sigmoid colon, in the sigmoid colon, in the descending colon and in the ascending colon. - A few ulcers in the rectum. Biopsied. An order was given for patient to be transfused with 2 unit PRBC. Admitted to monitored bed consultation placed to Dr. Gonzalez with GI from the emergency department. Patient was kept n.p.o. pending repeat endoscopic evaluation ? 06/04/2025 patient hemoglobin up to 7.6 following transfusion with 2 unit PRBC ? 05/19/2025;Patient became very restless and delirious the day prior did receive Ativan. By the time patient arrived for the EGD she could not give the consent. Seen this a.m. much more awake and interactive. Hemoglobin down to 6.9 an additional unit given. Patient EGD scheduled for this afternoon (consent has been signed) ? 06/06/2025; EGD performed on 06/05/2025 results as below One non-bleeding linear gastric ulcer with no stigmata of bleeding was found in the prepyloric region of the stomach. The lesion was 6 mm in largest dimension. Coagulation for bleeding prevention using heater probe was successful. Estimatedblood loss was minimal. Three 5 mm angiodysplastic lesions with bleeding were found in the fourth portion of the duodenum. Coagulation for hemostasis using heater probe was successful. Estimated blood loss was minimal. Patient hemoglobin up to 8.4 3. Paroxysmal A-fib ? Rate controlled on systemic anticoagulation with apixaban held given her presentation. Patient apixaban has been held for a week following her admissionafter her GI bleed. Given the recurrent nature of symptoms patient may not be agood candidate for systemic anticoagulation ? 06/06/2025; patient remains on telemetry monitoring was found to have A-fib with slow ventricular response as well as sinus pauses. Patient currently not on any rate controlling agents. Will continue with monitoring and if there is any recurrence to consult cardiology ? 06/07/2025; patient carvedilol discontinued on discharge. Apixaban held for 2 weeks to resume on 06/18/2025 4. Hypertension - Blood pressure controlled, home medications continued with dose adjustment as needed ? 06/04/2025; held patient antihypertensives given her relatively low blood pressure patient did receive fluid resuscitation 5. Hypothyroidism ? Patient is on levothyroxine did continue with home dose 6. Peripheral arterial disease ? With history of bilateral carotid artery stenosis, peripheral vascular occlusive disease. Patient was on systemic anticoagulation with apixaban held given about reasons 7. Dyslipidemia ?Patient is on statin therapy, continued at home dose 8. Multiple sclerosis ? Complicating patient's care patient is on baclofen for muscle relaxation 9. Chronic pain syndrome ? Restarted patient home pain regimen 10. DVT prophylaxis ? Patient is on apixaban held given his GI bleed 11. Hypokalemia ? Corrected per protocol, repeat potassium ordered in 4 hours to assess for response to therapy 12. -S-severe malnutrition -Related to: inadequate oral/energy intake As evidenced by: PO meeting <50% of estimated nutrition needs x 2-3 days and 9% unintentional weight loss x 5 months. With treatment/resources used including: Recommend advanced diet as tolerated to liberal regular. Continue 120ml EPHP TID with medpass. Will monitorweight trends. 13. Severe agitation ? Patient did receive Ativan 14. Depression with anxiety ? Patient started on low-dose Paxil 15. Physical deconditioning/debility ? Requested for PT OT eval and geriatric social work professor to assist with discharge planning. Patient may benefit from going to nursing home facility Time spent in the patient's overall evaluation,decision-making process, review of diagnostic data, adjustment of management, discussion with other providers, nursing nursing and ancillary staff involved in patient's care documentation 38 Minutes Medications at Discharge Home Medications gabapentin 800 [...] 40 mg PO QDAY PRN indigestion 11/24/24 apixaban 5 mg tablet (Eliquis) 5 mg PO Q12H anticoagulation #180 tabs 03/09/25 Held on 06/07/25. Instructions: Resume on 06/18/25. cholecalciferol (vitamin D3) 125 mcg (5,000 unit) capsule 125 mcg PO DAILY supplement 04/18/25 docusate sodium 100 mg capsule (Colace) 100 mg PO BID stool softener 7 days #14 caps 04/18/25 doxepin 10 mg/mL oral concentrate 5 - 10 mg PO QHS back 04/18/25 naloxegol 25 mg tablet (Movantik) 25 [...] mL) PO DAILY 30 days #450mL 04/22/25 amlodipine 2.5 mg tablet 2.5 mg PO QDAY bp 05/13/25 lisinopril 10 mg tablet 10 mg PO QDAY blood pressure 05/13/25 capsaicin 0.1 % topical cream 1 applic topical TID #60 grams 05/19/25 misoprostol 100 mcg tablet PO 05/19/25 food supplemt, lactose-reduced 0.08 gram-1.5 kcal/mL oral liquid (Ensure Plus High Protein) 120 ml PO TIDCM #21,330 mL 06/07/25 pantoprazole 40 mg tablet,delayed release (Protonix) 40 mg PO BID #120 tabs 06/07/25 Physical Exam Narrative GENERAL: Patient appears anxious HEENT: Atraumatic; normocephalic EYES; Anicteric, pallor of the conjunctiva NECK; supple, normal thyroid, RESPIRATORY: Diminished to auscultation CARDIOVASCULAR: Regular S1 S2, GI: soft, normoactive bowel sounds, : No Renal angle tenderness; EXTREMITIES: No edema, no clubbing, MUSCULOSKELETAL: no muscle wasting NEURO: Awake; no lateralizing signs. SKIN: No Rash PSYCH; depressed Medical Records Data Medical Nutrition Assessment Dietitian: Malnutrition Criteria Met Start: 06/03/25 14:52 Freq: Status: Active Protocol: Document 06/03/25 14:52 (Rec: 06/03/25 14:52 [id number]) Nutrition Malnutrition Evidence of Yes Malnutrition Exists Malnutrition (severe Chronic ): Evidenced By Suboptimal Energy Intake (Moderate),Weight Loss (Severe ) Clinical Problem Chronic Disease or Condition Related Malnutrition Etiology moderate to severe malnutrition related to inadequate oral/energy intake Signs/Symptoms as evidenced by PO meeting <50% of estimated nutrition needs x 2-3 days and 9% unintentional weight loss x5 months. Status Active Problem Recommendation Dietitian Recommend advanced diet as tolerated to liberal regular Recommendations/ . Changes Continue 120ml EPHP TID with medpass. Will monitor weight trends. Weight / BMI Weight Weight: 50.1 kg Body Mass Index (BMI) 18.3 ABG / Lab / Microbiology Data 06/07/25 09:30 06/07/25 09:30 Laboratory: Laboratory Results - last 24 hr 06/07/25 09:30: WBC 8.1, RBC 3.77 L, Hgb 9.7 L, Hct 31.7 L, MCV 84.1, MCH 25.7 L, MCHC 30.6 L, RDW Std Deviation 57.4 H, RDW Coeff of David 18.6 H, Plt Count 134 L, MPV 9.2, Sodium 138, Potassium 5.1, Chloride 102, Carbon Dioxide 27.2, Anion Gap 9, BUN 16, Creatinine 0.97, Estim Creat Clear Calc 42.68 L, Est GFR (MDRD) Non-Af 63, BUN/Creatinine Ratio 16.1, Glucose 108 H, Calcium 8.4, Phosphorus 2.6L, Magnesium 1.8 Microbiology: Microbiology 06/03/25 03:39 Stool Stool Occult Blood (CARMEN) - Final D/C Instructions Discharge Activity: Return to Normal Activity Call your doctor if you observe: Fever of 101 or Higher, Shortness of breath, Fainting spells and Chest pain DC O2, CPAP, BIPAP Needs Home O2 Discharge instructions: Yes Type of respiratory needs?: Oxygen Oxygen frequency: With Sleeping Oxygen liters per minute when sleepin DC home with Oxygen: Yes Home O2 MD Review: I have reviewed the oxygen testing, and the patient qualifies for home oxygen equipment and portability. The patient is mobile in the home and the community. Meaningful Use Info Meaningful Use Meaningful Use Diagnoses (Choose all that apply): None applicable Discharge Plan Admission Admit Date/Time: 06/03/25 07:37 Attending Provider: Roman Mckeon Primary Care Provider: Jacinda Benton Discharge Orders/Prescriptions Prescriptions: New Ensure Plus High Protein 0.08 gram-1.5 kcal/mL Liquid 120 ml PO TIDCM Qty: 12615 0RF pantoprazole [Protonix] 40 mg tablet,delayed release (DR/EC) 40 mg PO BID Qty: 120 0RF Continued gabapentin 800 mg tablet 800 [...] 90 0RF misoprostol 100 mcg tablet PO capsaicin 0.1 % cream 1 applic topical TID Qty: 60 0RF Rx Instructions: do not wash area for at least 30 min after application docusate sodium [Colace] 100 mg capsule 100 mg PO BID 7 Days Qty: 14 0RF Movantik 25 mg tablet 25 mg PO DAILY 30 Days Qty: 30 0RF Rx Instructions: must be taken on empty stomach; no food 1 hr after or 2-3 hrs before dose amlodipine 2.5 mg tablet 2.5 mg PO QDAY lisinopril 10 mg tablet 10 mg PO QDAY Held Eliquis 5 mg tablet 5 mg PO Q12H Qty: 180 3RF Hold Instructions: Resume on 06/18/25. Discontinued aspirin 81 mg Tablet,Delayed Release (Dr/Ec) 81 mg PO BREAKFAST Qty: 30 2RF carvedilol 3.125 mg tablet 3.125 mg PO BIDCM Qty: 180 3RF Referrals / Follow Up: Jacinda Benton MD [Primary Care Provider] - Disposition Disposition (needs filled in before D/C Order can be placed): Home Health Service Charges/Coding Visit Charges Inpatient E&M: 71395 Disch Hosp >30min 06/07/25 1102 <Electronically signed by Roman Mckeon MD> Cosigner Signature (if applicable): CC: Dr. Roman Mckeon MD; Dr. Jacinda Benton MD~ Signed [facility] Work Phone: 1(810) 677-727407-20-2025 Progress note Author Roman Mckeon [facility] Note Date/Time June 07, 2025 10:1 4am [facility] Medical Records Department [address] [place] [address] Progress Note - Hospitalist 06/07/25 0907 MR#: [id number] Acct: [id number] Name: ANGÉLICA YO Rep #:[id number] : 1955 69 From: Roman Mckeon MD PCP: Dr. Jacinda Benton MD Status:ADM IN Location: [place] [address] Reason for Visit Chief Complaint: Bilateral lower extremities swelling Subjective Subjective Patient seen much more interactive compared to previous day. Hemoglobin up to 9.7. Patient to be assessed for home oxygen prior to discharge. Patient will also be discharged with home health Objective Data Objective Data Vital Signs: Vital Signs Temp Pulse Resp BP Pulse Ox O2 Del Method O2 Flow Rate 98.1 F 65 18 159/85 H 97 Nasal Cannula 2 06/07/25 01:56 06/07/25 01:56 06/07/25 01:56 06/07/25 01:56 06/06/25 21:04 06/07/25 08:00 06/07/25 08:00 Oxygen Flow Rate (L/min) 2 Oxygen Delivery Method Nasal Cannula Weight: 50.1 kg Body Mass Index (BMI) 18.3 Intake & Output: Intake and Output for Last 24 Hours 06/05/25 06/06/25 06/07/25 23:59 23:59 23:59 Intake Total 1065.75 / 1185.75 840 / 840 Output Total 800 / 800 Balance 265.75 / 385.75 840 / 840 Medical Nutrition Assessment Dietitian: Malnutrition Criteria Met Start: 06/03/25 14:52 Freq: Status: Active Protocol: Document 06/03/25 14:52 SB (Rec: 06/03/25 14:52 SB [id number]) Nutrition Malnutrition Evidence of Yes Malnutrition Exists Malnutrition (severe Chronic ): Evidenced By Suboptimal Energy Intake (Moderate),Weight Loss (Severe ) Clinical Problem Chronic Disease or Condition Related Malnutrition Etiology moderate to severe malnutrition related to inadequate oral/energy intake Signs/Symptoms as evidenced by PO meeting <50% of estimated nutrition needs x 2-3 days and 9% unintentional weight loss x5 months. Status Active Problem Recommendation Dietitian Recommend advanced diet as tolerated to liberal regular Recommendations/ . Changes Continue 120ml EPHP TID with medpass. Will monitor weight trends. Lab / Micro Data 06/07/25 09:30 06/06/25 06:10 Micro: Microbiology 06/03/25 03:39 Stool Stool Occult Blood (CARMEN) - Final Physical Exam Narrative GENERAL: Patient appears anxious HEENT: Atraumatic; normocephalic EYES; Anicteric, pallor of the conjunctiva NECK; supple, normal thyroid, RESPIRATORY: Diminished to auscultation CARDIOVASCULAR: Regular S1 S2, GI: soft, normoactive bowel sounds, : No Renal angle tenderness; EXTREMITIES: No edema, no clubbing, MUSCULOSKELETAL: no muscle wasting NEURO: Awake; no lateralizing signs. SKIN: No Rash PSYCH; depressed Assessment & Plan Assessment/Plan (1) Anemia: (2) Congestive heart failure: PLAN: Plan Patient is a 69-year-old lady who presented with swelling involving both lower extremities found to have hemoglobin of 5.2 1. Acute congestive heart failure with preserved ejection fraction ? Pressure titrated by patient's severe anemia. Patient has been admitted to monitored bed placed on strict input and output, daily weights, fluid restriction IV furosemide ? 06/04/2025; echo from 01/11/2025 demonstrated EF of 70%. With patient blood pressure running on the low side decreased furosemide dose 2. Acute symptomatic anemia ? Patient hemoglobin on admission was 5.2. 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 Treated with a heater probe. Colonoscopy revealed One 10 mm polyp at the splenic flexure, removed with a hot snare. Resected and retrieved. - Diverticulosis in the recto-sigmoid colon, in the sigmoid colon, in the descending colon and in the ascending colon. - A few ulcers in the rectum. Biopsied. An order was given for patient to be transfused with 2 unit PRBC. Admitted to monitored bed consultation placed to Dr. Gonzalez with GI from the emergency department. Patient was kept n.p.o. pending repeat endoscopic evaluation ? 06/04/2025 patient hemoglobin up to 7.6 following transfusion with 2 unit PRBC ? 05/19/2025;Patient became very restless and delirious the day prior did receive Ativan. By the time patient arrived for the EGD she could not give the consent. Seen this a.m. much more awake and interactive. Hemoglobin down to 6.9 an additional unit given. Patient EGD scheduled for this afternoon (consent has been signed) ? 06/06/2025; EGD performed on 06/05/2025 results as below One non-bleeding linear gastric ulcer with no stigmata of bleeding was found in the prepyloric region of the stomach. The lesion was 6 mm in largest dimension. Coagulation for bleeding prevention using heater probe was successful. Estimatedblood loss was minimal. Three 5 mm angiodysplastic lesions with bleeding were found in the fourth portion of the duodenum. Coagulation for hemostasis using heater probe was successful. Estimated blood loss was minimal. Patient hemoglobin up to 8.4 3. Paroxysmal A-fib ? Rate controlled on systemic anticoagulation with apixaban held given her presentation. Patient apixaban has been held for a week following her admissionafter her GI bleed. Given the recurrent nature of symptoms patient may not be agood candidate for systemic anticoagulation ? 06/06/2025; patient remains on telemetry monitoring was found to have A-fib with slow ventricular response as well as sinus pauses. Patient currently not on any rate controlling agents. Will continue with monitoring and if there is any recurrence to consult cardiology 4. Hypertension - Blood pressure controlled, home medications continued with dose adjustment as needed ? 06/04/2025; held patient antihypertensives given her relatively low blood pressure patient did receive fluid resuscitation 5. Hypothyroidism ? Patient is on levothyroxine did continue with home dose 6. Peripheral arterial disease ? With history of bilateral carotid artery stenosis, peripheral vascular occlusive disease. Patient was on systemic anticoagulation with apixaban held given about reasons 7. Dyslipidemia ?Patient is on statin therapy, continued at home dose 8. Multiple sclerosis ? Complicating patient's care patient is on baclofen for muscle relaxation 9. Chronic pain syndrome ? Restarted patient home pain regimen 10. DVT prophylaxis ? Patient is on apixaban held given his GI bleed 11. Hypokalemia ? Corrected per protocol, repeat potassium ordered in 4 hours to assess for response to therapy 12. -S-severe malnutrition -Related to: inadequate oral/energy intake As evidenced by: PO meeting <50% of estimated nutrition needs x 2-3 days and 9% unintentional weight loss x 5 months. With treatment/resources used including: Recommend advanced diet as tolerated to liberal regular. Continue 120ml EPHP TID with medpass. Will monitorweight trends. 13. Severe agitation ? Patient did receive Ativan 14. Depression with anxiety ? Patient started on low-dose Paxil 15. Physical deconditioning/debility ? Requested for PT OT eval and geriatric social work professor to assist with discharge planning. Patient may benefit from going to nursing home facility Time spent in the patient's overall evaluation,decision-making process, review of diagnostic data, adjustment of management, discussion with other providers, nursing nursing and ancillary staff involved in patient's care documentation 38 Minutes Charges/Coding Visit Charges Inpatient E&M: 56811 Subs Hosp L2 06/07/25 1014 <Electronically signed by Roman Mckeon MD> Cosigner Signature (if applicable): CC: ~ Signed [facility] Work Phone: 1(210) 750-622707-20-[address] [facility]07-19-2025 Progress note Author Roman Mckeon [facility] Note Date/Time June 06, 2025 12:1 5pm [facility] Medical Records Department [address] [place] [address] Progress Note - Hospitalist 06/06/25 1208 MR#: [id number] Acct: [id number] Name: ANGÉLICA YO Rep #:[id number] : 1955 69 From: Roman Mckeon MD PCP: Dr. Jacinda Benton MD Status:ADM IN Location: [place] [address] Reason for Visit Chief Complaint: Bilateral lower extremities swelling Subjective Subjective Patient underwent EGD the day prior results are as below. Patient remains on continuous telemetry monitoring and was found to be in A-fib with slow ventricular response and had some sinus pauses. Objective Data Objective Data Vital Signs: Vital Signs Temp Pulse Resp BP Pulse Ox O2 Del Method O2 Flow Rate 97.8 F 97 18 141/92 H 98 Room Air 2 06/06/25 09:13 06/06/25 09:13 06/06/25 09:13 06/06/25 09:13 06/06/25 09:13 06/06/25 10:00 06/06/25 03:35 Oxygen Flow Rate (L/min) 2 Oxygen Delivery Method Room Air Weight: 48.1 kg Body Mass Index (BMI) 17.6 Intake & Output: Intake and Output for Last 24 Hours 06/04/25 06/05/25 06/06/25 23:59 23:59 23:59 Intake Total 1350 / 1350 1065.75 / 1185.75 340 / 340 Output Total 700 / 700 800 / 800 Balance 650 / 650 265.75 / 385.75 340 / 340 Medical Nutrition Assessment Dietitian: Malnutrition Criteria Met Start: 06/03/25 14:52 Freq: Status: Active Protocol: Document 06/03/25 14:52 SB (Rec: 06/03/25 14:52 SB [id number]) Nutrition Malnutrition Evidence of Yes Malnutrition Exists Malnutrition (severe Chronic ): Evidenced By Suboptimal Energy Intake (Moderate),Weight Loss (Severe ) Clinical Problem Chronic Disease or Condition Related Malnutrition Etiology moderate to severe malnutrition related to inadequate oral/energy intake Signs/Symptoms as evidenced by PO meeting <50% of estimated nutrition needs x 2-3 days and 9% unintentional weight loss x5 months. Status Active Problem Recommendation Dietitian Recommend advanced diet as tolerated to liberal regular Recommendations/ . Changes Continue 120ml EPHP TID with medpass. Will monitor weight trends. Lab / Micro Data 06/06/25 06:10 06/06/25 06:10 Labs: Laboratory Results - last 24 hr 06/03/25 03:20: Crossmatch See Detail 06/06/25 06:10: WBC 6.9, RBC 3.26 L, Hgb 8.4 L, Hct 26.8 L, MCV 82.2, MCH 25.8 L, MCHC 31.3 L, RDW Std Deviation 54.3 H, RDW Coeff of David 18.3 H, Plt Count 122 L, MPV 10.2, Immature Gran % (Auto) 0.600, Neut % (Auto) 65.3, Lymph % (Auto) 19.0, Johnston % (Auto) 10.7 H, Eos % (Auto) 3.4, Baso % (Auto) 1.0, Absolute Neuts (auto) 4.5, Absolute Lymphs (auto) 1.30, Nucleated RBC % 0, Sodium 139, Potassium 3.3, Chloride 104, Carbon Dioxide 26.1, Anion Gap 9, BUN 14, Creatinine 0.99, Estim Creat Clear Calc 40.15 L, Est GFR (MDRD) Non-Af 61, BUN/Creatinine Ratio 13.9, Glucose 84, Calcium 7.9 Micro: Microbiology 06/03/25 03:39 Stool Stool Occult Blood (CARMEN) - Final Physical Exam Narrative GENERAL: Much more cooperative compared to previous day HEENT: Atraumatic; normocephalic EYES; Anicteric, pallor of the conjunctiva NECK; supple, normal thyroid, RESPIRATORY: Diminished to auscultation CARDIOVASCULAR: Regular S1 S2, GI: soft, normoactive bowel sounds, : No Renal angle tenderness; EXTREMITIES: No edema, no clubbing, MUSCULOSKELETAL: no muscle wasting NEURO: Awake; no lateralizing signs. SKIN: No Rash PSYCH; patient is tearful Assessment & Plan Assessment/Plan (1) Anemia: (2) Congestive heart failure: PLAN: Plan Patient is a 69-year-old lady who presented with swelling involving both lower extremities found to have hemoglobin of 5.2 1. Acute congestive heart failure with preserved ejection fraction ? Pressure titrated by patient's severe anemia. Patient has been admitted to monitored bed placed on strict input and output, daily weights, fluid restriction IV furosemide ? 06/04/2025; echo from 01/11/2025 demonstrated EF of 70%. With patient blood pressure running on the low side decreased furosemide dose 2. Acute symptomatic anemia ? Patient hemoglobin on admission was 5.2. 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 Treated with a heater probe. Colonoscopy revealed One 10 mm polyp at the splenic flexure, removed with a hot snare. Resected and retrieved. - Diverticulosis in the recto-sigmoid colon, in the sigmoid colon, in the descending colon and in the ascending colon. - A few ulcers in the rectum. Biopsied. An order was given for patient to be transfused with 2 unit PRBC. Admitted to monitored bed consultation placed to Dr. Gonzalez with GI from the emergency department. Patient was kept n.p.o. pending repeat endoscopic evaluation ? 06/04/2025 patient hemoglobin up to 7.6 following transfusion with 2 unit PRBC ? 05/19/2025;Patient became very restless and delirious the day prior did receive Ativan. By the time patient arrived for the EGD she could not give the consent. Seen this a.m. much more awake and interactive. Hemoglobin down to 6.9 an additional unit given. Patient EGD scheduled for this afternoon (consent has been signed) ? 06/06/2025; EGD performed on 06/05/2025 results as below One non-bleeding linear gastric ulcer with no stigmata of bleeding was found in the prepyloric region of the stomach. The lesion was 6 mm in largest dimension. Coagulation for bleeding prevention using heater probe was successful. Estimatedblood loss was minimal. Three 5 mm angiodysplastic lesions with bleeding were found in the fourth portion of the duodenum. Coagulation for hemostasis using heater probe was successful. Estimated blood loss was minimal. Patient hemoglobin up to 8.4 3. Paroxysmal A-fib ? Rate controlled on systemic anticoagulation with apixaban held given her presentation. Patient apixaban has been held for a week following her admissionafter her GI bleed. Given the recurrent nature of symptoms patient may not be agood candidate for systemic anticoagulation ? 06/06/2025; patient remains on telemetry monitoring was found to have A-fib with slow ventricular response as well as sinus pauses. Patient currently not on any rate controlling agents. Will continue with monitoring and if there is any recurrence to consult cardiology 4. Hypertension - Blood pressure controlled, home medications continued with dose adjustment as needed ? 06/04/2025; held patient antihypertensives given her relatively low blood pressure patient did receive fluid resuscitation 5. Hypothyroidism ? Patient is on levothyroxine did continue with home dose 6. Peripheral arterial disease ? With history of bilateral carotid artery stenosis, peripheral vascular occlusive disease. Patient was on systemic anticoagulation with apixaban held given about reasons 7. Dyslipidemia ?Patient is on statin therapy, continued at home dose 8. Multiple sclerosis ? Complicating patient's care patient is on baclofen for muscle relaxation 9. Chronic pain syndrome ? Restarted patient home pain regimen 10. DVT prophylaxis ? Patient is on apixaban held given his GI bleed 11. Hypokalemia ? Corrected per protocol, repeat potassium ordered in 4 hours to assess for response to therapy 12. -S-severe malnutrition -Related to: inadequate oral/energy intake As evidenced by: PO meeting <50% of estimated nutrition needs x 2-3 days and 9% unintentional weight loss x 5 months. With treatment/resources used including: Recommend advanced diet as tolerated to liberal regular. Continue 120ml EPHP TID with medpass. Will monitorweight trends. 13. Severe agitation ? Patient did receive Ativan 14. Depression with anxiety ? Patient started on low-dose Paxil Time spent in the patient's overall evaluation,decision-making process, review of diagnostic data, adjustment of management, discussion with other providers, nursing nursing and ancillary staff involved in patient's care documentation 40 Minutes Charges/Coding Visit Charges Inpatient E&M: 59801 Subs Hosp L2 06/06/25 1215 <Electronically signed by Roman Mckeon MD> Cosigner Signature (if applicable): CC: ~ Signed [facility] Work Phone: 1(672) 652-840307-18-2025 Consult note Author Zaki Levin [facility] Note Date/Time June 05, 2025 4:09 pm [facility] Medical Records Department [address] [place] [address] Anesthesia Postop Eval II 06/05/25 1609 MR#: [id number] Acct: [id number] Name: ANGÉLICA YO Rep #:[id number] : 1955 69 From: Zaki JOINER PCP: Dr. Jacinda Benton MD Status:ADM IN Y Race: C Location: [place] [address]1 Anesthesia Postop Eval I Sum Postop Eval Completion status Anesthesia document: Postop Eval 1 completed: No Anesthesia Postop Eval I Summary Anesthesia Postop Eval I Summary: Anesthesia Postop Eval I: Assessment Summary Airway patent No 06/05/25 16:05 LUSTER [email or web address] Spontaneous unlabored No 06/05/25 16:05 LUSTER [email or web address].[email or web address] respirations Mental status Awake,Calm 06/05/25 16:05 LUSTER [email or web address].[email or web address] nausea No 06/05/25 16:05 LUSTER [email or web address].MDOT Vomiting No 06/05/25 16:05 LUSTER [email or web address].[email or web address] Anesthesia Postop Eval I: Fluid Summary Crystalloid volume administer 100 06/05/25 16:05 LUSTER APPLICATOR.MDISAIAH (ml) Colloids volume administered ( ml) Blood Product volume administered (ml) Total IV fluid infused 100 06/05/25 16:05 SONIA Anesthesia Postop Eval I: Summary Notes Anesthesia Complication No 06/05/25 16:05 SONIA Anesthesia Complication Comment: Post-operative progress note Anesthesia: Postop Eval II Evaluation Mental status: Awake and Calm Pain Level: 0 nausea: No Vomiting: No Complications Anesthesia Complication: No 06/05/25 1609 <Electronically signed by Zaki Levin CRNA> Date _ Zaki Levin CRNA Cosigner Signature: Date CC: ~ Signed [facility] Work Phone: 1(863) 880-506707-18-2025 Consult note Author [facility] Note Date/Time June 05, 2025 4:05 pm [facility] Medical Records Department [address] [place] [address] Anesthesia Postop Eval I 06/05/251604 MR#: [id number] Acct: [id number] Name: ANGÉLICA YO Rep #:[id number] : 1955 69 From: Zaki JOINER PCP: Dr. Jacinda Benton MD Status:ADM IN Y Race: C Location: [address] Anesthesia: Postop Eval I Current Vital Signs Temperature: 98 F Pulse Rate: 75 Blood Pressure: 121/72 Respiratory Rate: 16 Pulse Ox: 100 Oxygen Delivery Method: Room Air Assessment Airway patent: No Spontaneous unlabored respirations: No Mental status: Awake and Calm nausea: No Vomiting: No Anesthesia Complication: No Fluid Hydration Crystalloid volume administer (ml): 100 Total IV fluid infused: 100 Progress Note Anesthesia document: Postop Eval 1 completed: No 06/05/25 160 <Electronically signed by Zaki Levin CRNA> Date _ Zaki Ollie NEGAR Vanegasmario Signature: Date CC: ~ Signed [facility] Work Phone: 1(604) 199-849707-18-2025 Consult note Author Zaki Levin [facility] Note Date/Time June 05, 2025 3:50 pm [facility] Medical Records Department [address] [place] [address] Pre-Anesthesia Evaluation 06/05/25 1549 MR#: [id number] Acct: [id number] Name: ANGÉLICA YO Rep #:[id number] : 1955 69 From: Zaki JOINER PCP: Dr. Jacinda Benton MD Status:ADM IN Y Race: C Location: [place] [address] ASA Classification* ASA Classification ASA Classification: 3 [...] Patient and Chart Anesthesia Focused Assessment* Temperature: 98.0 F Pulse Rate: 56 Blood Pressure: 119/66 Respiratory Rate: 14 Pulse Ox: 95 Oxygen Flow Rate (L/min): 2 Airway Assessment Mouth opens: >3 cm Mallampati Score: II Teeth Condition: Intact Neck Range of motion (ROM): Full ROM Labs Anesthesia Preop lab: CBC WBC 6.4 K/mm3 (4.4-11.0) 06/05/25 11:15 06/05/25 RBC 3.22 M/mm3 (4.2-5.4) L 06/05/25 11:15 06/05/25 Hgb 8.5 g/dL (12.0-15.0) L 06/05/25 11:15 06/05/25 Hct 26.7 % (37-47) L 06/05/25 11:15 06/05/25 Plt Count 114 K/mm3 (150-450) L 06/05/25 11:15 06/05/25 CHEMISTRY Potassium 3.6 mmol/L (3.3-5.1) 06/05/25 04:17 06/05/25 Sodium 139 mmol/L (133-145) 06/05/25 04:17 06/05/25 Magnesium 1.6 mg/dL (1.5-2.2) 06/04/25 02:50 06/04/25 Phosphorus 3.7 mg/dL (2.7-4.5) 06/04/25 02:50 06/04/25 BUN 13 mg/dL (4-19) 06/05/25 04:17 06/05/25 Creatinine 1.00 mg/dL (0.70-1.20) 06/05/25 04:17 06/05/25 Glucose 73 mg/dL (70-99) 06/05/25 04:17 06/05/25 POC Glucose 109 mg/dL (74-106) H 04/21/25 01:15 04/21/25 TSH 1.680 uIU/mL (0.300-4.200) 05/15/25 15:26 04/20 06/12 COAG PT 15.4 SECONDS (11.7-14.9) H 06/04/25 02:50 05/19 06/12 Pre-Assessment Diagnosis/Proposed Procedure Planned Operative Procedure(s): EGD 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 When Was Last Pacemaker Check QUESTION #4 FULL TEXT: You/Your Family Experience fever (hyperthermia) with Anesthesia Last Oral Intake Last Oral intake: Last Oral Intake NPO since 00:00 06/03/25 23:06 Meds taken in AM with sips of water? Meds patient instructed to take am of surgery PONV PONV - harness brusher: PONV - harness brusher Female HX of Motion Sickness HX of N/V After Surgery Non-Smoker Duration of Surgery greater than 60 minutes Number of Risk Factors PONV Score Height & Weight Height & Weight: Anesthesia: Height & Weight Height 5 ft 5 in 06/03/25 23:06 Weight: 47 kg 06/05/25 05:10 Body Mass Index (BMI) 17.2 06/05/25 05:10 Respiratory Assessment Respiratory Assessment - harness brusher: Respiratory Tract Infection Hx - harness brusher Hx Respiratory Tract Infection No 06/03/25 23:05 STOP Sleep Apnea STOP Sleep Apnea - harness brusher: STOP Sleep Apnea - harness brusher Hx Hypertension Yes 06/03/25 08:49 Hx Sleep Apnea No 06/03/25 08:49 CPAP BIPAP Do you snore loudly (louder No 06/03/25 08:49 than talking or can be heard Do you often feel tired/ Yes 06/03/25 08:49 fatigued/ sleepy during daytime? Has anyone observed you stop No 06/03/25 08:49 breathing during sleep? STOP Results Positive 06/03/25 08:49 QUESTION #5 FULL TEXT : Do you snore loudly (louder than talking or can be heard through closed doors)? 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 Specify any problems Hx of Preganancy in last 3 N/A 06/03/25 08:49 Months Nurse Filling Out Transfusion HHFELICITAS 06/03/25 08:49 & Questions: Date: 06/03/25 06/03/25 08:49 Time: 08:52 06/03/25 08:49 Patient unable to answer at this time (ie. confused, unrespo /Reproduction History /Reproductive History - harness brusher: /Reproductive Hx- harness brusher Hx Now No 06/03/25 23:05 Gestational Age (in weeks): EDC: Hx Hx Para Hx Section SAB No 06/03/25 23:05 Active Medications Active Medications: Current Medications Generic Name Dose Route Start Last Admin Trade Name Freq PRN Reason Stop Dose Admin Acetaminophen 650 mg 06/03/25 08:34 06/05/25 00:28 Acetaminophen 325 Mg Tablet PO 650 mg Q6H PRN PRN Administration Pain 1-10 Or Fever >100.7 Albuterol Sulfate 2.5 mg 06/03/25 08:34 Albuterol 2.5 Mg/3 Ml Vial.Neb. INHALATION Q2H PRN PRN SOB &/OR WHEEZING Atorvastatin Calcium 20 mg 06/03/25 22:00 06/04/25 21:49 Atorvastatin Calcium 20 Mg Tablet PO Not Given QHS VIMAL Baclofen 20 mg 06/03/25 12:00 06/05/25 11:04 Baclofen 10 Mg Tablet PO Not Given Q6H VIMAL Cholecalciferol 125 mcg 06/03/25 10:00 06/05/25 08:30 Cholecalciferol (Vit D3) 125 Mcg Capsule (5,000 Units) PO Not Given DAILY VIMAL Docusate Sodium 100 mg 06/03/25 10:00 06/05/25 08:30 Docusate Sodium 100 Mg Capsule PO Not Given BID VIMAL Gabapentin 800 mg 06/03/25 14:00 06/05/25 13:09 Gabapentin 800 Mg Tablet PO Not Given TID VIMAL Guaifenesin 2 tablet 06/03/25 09:07 Guaifenesin/D-Methorphan Tab.Sr.12h PO Q12H PRN cough/congest Hydromorphone HCl 0.5 - 1 mg 06/03/25 08:34 06/04/25 11:38 Hydromorphone 1 Mg/Ml Syringe IV 1 mg Q3H PRN PRN Administration Pain Score 6-10 Hydromorphone HCl 0.5 - 1 mg 06/03/25 09:09 06/05/25 09:42 Hydromorphone 0.5 Mg/0.5 Ml Syringe IV 1 mg Q3H PRN PRN Administration Pain Score 6-10 Pantoprazole Sodium 40 mg/ 100 mls @ 300 mls/hr 06/03/25 10:00 06/05/25 11:33 Sodium Chloride IV Infused Q12 VIMAL Infusion Sodium Chloride 250 mls @ 15 mls/hr 06/03/25 08:54 06/05/25 13:12 IV Infused .[id number] PRN Infusion Saline Flush Sodium Chloride 250 mls @ 15 mls/hr 06/03/25 08:54 IV .[id number] PRN Additional IVPB Infusion Sodium Chloride 250 mls @ 15 mls/hr 06/04/25 15:58 IV .[id number] PRN Saline Flush Sodium Chloride 250 mls @ 15 mls/hr 06/04/25 15:58 IV .[id number] PRN Additional IVPB Infusion Sodium Chloride 250 mls @ 15 mls/hr 06/05/25 08:29 IV .[id number] PRN Saline Flush Sodium Chloride 250 mls @ 15 mls/hr 06/05/25 08:29 IV .[id number] PRN Additional IVPB Infusion Lactated Ringer's 1,000 mls @ 15 mls/hr 06/05/25 15:15 06/05/25 15:16 IV 15 mls/hr .Q48H VIMAL Administration Levothyroxine Sodium 50 mcg 06/04/25 06:00 06/05/25 05:36 Levothyroxine 50 Mcg Tablet PO Not Given DAILY@0600 VIMAL Melatonin 3 mg 06/03/25 08:34 Melatonin 3 Mg Tablet PO QHS PRN PRN INSOMNIA Nutritional Formula (Lactose Free) 120 ml 06/03/25 12:00 06/05/25 11:04 Ensure Plus High Protein 120 Ml Liquid PO Not Given TIDCM VIMAL Ondansetron HCl 4 mg 06/03/25 08:34 06/04/25 08:38 Ondansetron 4 Mg/2 Ml Vial IV 4 mg Q8H PRN PRN Administration NAUSEA/VOMITING Oxycodone HCl 5 mg 06/03/25 08:34 06/03/25 22:44 Oxycodone 5 Mg Tablet PO 5 mg Q4H PRN PRN Administration Pain Score 4-10 Polysaccharide Iron Complex 150 mg 06/03/25 10:00 06/05/25 08:30 Iron Polysaccharide Complex 150 Mg Capsule PO Not Given DAILY VIMAL Potassium Chloride 20 meq 06/03/25 10:00 06/05/25 08:31 Potassium Chloride Oral Soln 20 Meq/15 Ml Udc PO Not Given DAILY VIMAL Sodium Chloride 10 - 40 ml 06/03/25 08:54 06/05/25 06:52 0.9% Saline Lock 10 Ml Syringe IV 10 ml UD PRN Administration SALINE FLUSH Sodium Chloride 10 - 40 ml 06/04/25 15:58 0.9% Saline Lock 10 Ml Syringe IV UD PRN SALINE FLUSH Sodium Chloride 10 - 40 ml 06/05/25 08:29 0.9% Saline Lock 10 Ml Syringe IV UD PRN SALINE FLUSH PFSH Medical History Hypertensive emergency NSTEMI, initial episode of care Mitral stenosis On home oxygen therapy Atrial fibrillation Chronic low back pain Diastolic hypertension Elevated troponin Chest pain PAF (paroxysmal atrial fibrillation) Emphysema of lung Smoking greater than 30 pack years Nicotine dependence, cigarettes, uncomplicated New onset atrial fibrillation Elevated troponin Atrial fibrillation Hypothyroidism Smoker Coronary artery disease TIA (transient ischemic attack) Influenza A [place] (dyspnea on exertion) Atherosclerotic heart disease of [place] coronary artery without angina pectoris Cardiac murmur Nonsustained paroxysmal supraventricular tachycardia Multiple sclerosis Nonobstructive [...] concentrate 5 - 10 mg PO QHS staci k 04/18/25 Unknown History naloxegol 25 mg tablet (Movantik) [...] 2.5 mg tablet 2.5 mg PO QDAY bp 06/25/25 U nknown History lisinopril 10 mg tablet 10 mg PO QDAY blood pressure 05/13/25 Unknown History capsaicin 0.1 % topical cream 1 applic topical TID #60 grams 05/19/25 Unknown Rx misoprostol 100 mcg tablet PO 05/19/25 Unknown History Allergy/AdvReac Type Severity Reaction Status Date [...] Stomach morphine AdvReac Nausea Verified 06/03/25 02:30 Grhshbz-PBC-BkE Reductase AdvReac Nausea Verified 06/03/25 02:30 Inhibitor (Ueympmu-Xfi-Tdj Reductase Inhibitor) Family History Mother Cancer CAD [...] and no additional complaints, except as documented. 06/05/25 1550 <Electronically signed by Zaki Levin CRNA> Date _ Zaki Levin CRNA Cosigner Signature: Date CC: ~ Signed [facility] Work Phone: [phone]) 110-270207-18-2025 Progress note Author Kevin Gonzalez [facility] Note Date/Time June 05, 2025 3:14 pm [facility] Medical Records Department [address] [place] [address] Progress Note 06/05/25 1512 MR#: [id number] Acct: [id number] Name: ANGÉLICA YO Rep #:[id number] 2 : 1955 69 From: Kevin Gonzalez DO PCP: Dr. Jacinda Benton MD Status:ADM IN Location: [place] [address] Progress Note Patient has been n.p.o. for EGD reports uroscopy due to decrease in hemoglobin and history of upper GI bleed due to peptic ulcer disease and and her spastic lesions on apixaban and aspirin. Physical Exam Narrative GENERAL: Patient appears ill looking HEENT: Atraumatic; normocephalic EYES; Anicteric, pallor of [...] . She have an ASA of 3. Visit Charges Inpatient E&M: 60538 Subs Hosp L2 06/05/25 4168 <Electronically signed by Kevin Gonzalez DO> Kevin Gonzalez DO Cosign Signature (if applicable): CC: ~ Signed [facility] Work Phone: 1(168) 959-261107-18-2025 [facility] 06-05-2025 [facility]07-18-2025 Progress note Author Roman Mckeon [facility] Note Date/Time June 05, 2025 11:3 1am [facility] Medical Records Department [address] [place] [address] Progress Note - Hospitalist 06/05/25 0749 MR#: [id number] Acct: [id number] Name: ANGÉLICA YO Rep #:[id number] 4 : 1955 69 From: Roman Mckeon MD PCP: Dr. Jacinda Benton MD Status:ADM IN Location: [place] [address]- 1 Reason for Visit Chief Complaint: Bilateral lower extremities swelling Subjective Subjective Patient became very restless and delirious the day prior did receive Ativan. Bythe time patient arrived for the EGD she could not give the consent. Seen this a.m. much more awake and interactive. Hemoglobin down to 6.9 an additional unitgiven. Patient EGD scheduled for this afternoon (consent has been signed) Objective Data Objective Data Vital Signs: Vital Signs Temp Pulse Resp BP Pulse Ox O2 Del Method O2 Flow Rate 98.1 F 58 L 18 140/77 H 100 Nasal Cannula 2 06/05/25 07:00 06/05/25 07:00 06/05/25 07:00 06/05/25 07:00 06/05/25 07:00 06/05/25 07:00 06/05/25 07:00 Oxygen Flow Rate (L/min) 2 Oxygen Delivery Method Nasal Cannula Weight: 47 kg Body Mass Index (BMI) 17.2 Intake & Output: Intake and Output for Last 24 Hours 06/03/25 06/04/25 06/05/25 23:59 23:59 23:59 Intake Total 1680 / 1680 1350 / 1350 0.25 / 0.25 Output Total 700 / 700 800 / 800 Balance 1680 / 1680 650 / 650 -799.75 / -799.75 Medical Nutrition Assessment Dietitian: Malnutrition Criteria Met Start: 06/03/25 14:52 Freq: Status: Active Protocol: Document 06/03/25 14:52 SB (Rec: 06/03/25 14:52 SB [id number]) Nutrition Malnutrition Evidence of Yes Malnutrition Exists Malnutrition (severe Chronic ): Evidenced By Suboptimal Energy Intake (Moderate),Weight Loss (Severe ) Clinical Problem Chronic Disease or Condition Related Malnutrition Etiology moderate to severe malnutrition related to inadequate oral/energy intake Signs/Symptoms as evidenced by PO meeting <50% of estimated nutrition needs x 2-3 days and 9% unintentional weight loss x5 months. Status Active Problem Recommendation Dietitian Recommend advanced diet as tolerated to liberal regular Recommendations/ . Changes Continue 120ml EPHP TID with medpass. Will monitor weight trends. Lab / Micro Data 06/05/25 04:17 06/05/25 04:17 Labs: Laboratory Results - last 24 hr 06/03/25 03:20: Crossmatch See Detail 06/04/25 08:40: Hgb 7.4 L, Hct 23.1 L, Cortisol AM Sample 13.10 06/05/25 04:17: WBC 7.2, RBC 2.79 L, Hgb 6.9 L, Hct 22.1 L, MCV 79.2 L, MCH 24.7L, MCHC 31.2 L, RDW Std Deviation 52.4 H, RDW Coeff of David 18.3 H, Plt Count 109L, MPV 10.8, Immature Gran % (Auto) 0.600, Neut % (Auto) 76.6 H, Lymph % (Auto) 9.9 L, Johnston % (Auto) 10.1 H, Eos % (Auto) 2.4, Baso % (Auto) 0.4, Absolute Neuts(auto) 5.5, Absolute Lymphs (auto) 0.71 L, Nucleated RBC % 0.7, Differential Comment SCANNED, Sodium 139, Potassium 3.6, Chloride 104, Carbon Dioxide 24.5, Anion Gap 11, BUN 13, Creatinine 1.00, Estim Creat Clear Calc 38.84 L, Est GFR (MDRD) Non-Af 61, BUN/Creatinine Ratio 13.2, Glucose 73, Calcium 7.9 Micro: Microbiology 06/03/25 03:39 Stool Stool Occult Blood (CARMEN) - Final Physical Exam Narrative GENERAL: Patient appears ill looking HEENT: Atraumatic; normocephalic EYES; Anicteric, pallor of the conjunctiva NECK; supple, normal thyroid, RESPIRATORY: Diminished to auscultation CARDIOVASCULAR: Regular S1 S2, GI: soft, normoactive bowel sounds, : No Renal angle tenderness; EXTREMITIES: No edema, no clubbing, MUSCULOSKELETAL: no muscle wasting NEURO: Awake; no lateralizing signs. SKIN: No Rash PSYCH; Flat affect Assessment & Plan Assessment/Plan (1) Anemia: (2) Congestive heart failure: PLAN: Plan Patient is a 69-year-old lady who presented with swelling involving both lower extremities found to have hemoglobin of 5.2 1. Acute congestive heart failure with preserved ejection fraction ? Pressure titrated by patient's severe anemia. Patient has been admitted to monitored bed placed on strict input and output, daily weights, fluid restriction IV furosemide ? 06/04/2025; echo from 01/11/2025 demonstrated EF of 70%. With patient blood pressure running on the low side decreased furosemide dose 2. Acute symptomatic anemia ? Patient hemoglobin on admission was 5.2. 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 Treated with a heater probe. Colonoscopy revealed One 10 mm polyp at the splenic flexure, removed with a hot snare. Resected and retrieved. - Diverticulosis in the recto-sigmoid colon, in the sigmoid colon, in the descending colon and in the ascending colon. - A few ulcers in the rectum. Biopsied. An order was given for patient to be transfused with 2 unit PRBC. Admitted to monitored bed consultation placed to Dr. Gonzalez with GI from the emergency department. Patient was kept n.p.o. pending repeat endoscopic evaluation ? 06/04/2025 patient hemoglobin up to 7.6 following transfusion with 2 unit PRBC ? 06/04/2025;Patient became very restless and delirious the day prior did receiveAtivan. By the time patient arrived for the EGD she could not give the consent. Seen this a.m. much more awake and interactive. Hemoglobin down to 6.9 an additional unit given. Patient EGD scheduled for this afternoon (consent has been signed) 3. Paroxysmal A-fib ? Rate controlled on systemic anticoagulation with apixaban held given her presentation. Patient apixaban has been held for a week following her admissionafter her GI bleed. Given the recurrent nature of symptoms patient may not be agood candidate for systemic anticoagulation 4. Hypertension - Blood pressure controlled, home medications continued with dose adjustment as needed ? 06/04/2025; held patient antihypertensives given her relatively low blood pressure patient did receive fluid resuscitation 5. Hypothyroidism ? Patient is on levothyroxine did continue with home dose 6. Peripheral arterial disease ? With history of bilateral carotid artery stenosis, peripheral vascular occlusive disease. Patient was on systemic anticoagulation with apixaban held given about reasons 7. Dyslipidemia ?Patient is on statin therapy, continued at home dose 8. Multiple sclerosis ? Complicating patient's care patient is on baclofen for muscle relaxation 9. Chronic pain syndrome ? Restarted patient home pain regimen 10. DVT prophylaxis ? Patient is on apixaban held given his GI bleed 11. Hypokalemia ? Corrected per protocol, repeat potassium ordered in 4 hours to assess for response to therapy 12. -S-severe malnutrition -Related to: inadequate oral/energy intake As evidenced by: PO meeting <50% of estimated nutrition needs x 2-3 days and 9% unintentional weight loss x 5 months. With treatment/resources used including: Recommend advanced diet as tolerated to liberal regular. Continue 120ml EPHP TID with medpass. Will monitorweight trends. 13. Severe agitation ? Patient did receive Ativan Time spent in the patient's overall evaluation,decision-making process, review of diagnostic data, adjustment of management, discussion with other providers, nursing nursing and ancillary staff involved in patient's care [id number] Minutes Charges/Coding Visit Charges Inpatient E&M: 52098 Subs Hosp L3 06/05/25 1131 <Electronically signed by Roman Mckeon MD> Cosigner Signature (if applicable): CC: ~ Signed [facility] Work Phone: 1(960) 418-593707-17-2025 Progress note Author Kevin Gonzalez [facility] Note Date/Time June 04, 2025 5:47 pm [facility] Medical Records Department [address] [place] [address] Progress Note 06/04/25 1746 MR#: [id number] Acct: [id number] Name: ANGÉLICA YO Rep #:[id number] 5 : 1955 69 From: Kevin Gonzalez DO PCP: Dr. Jacinda Benton MD Status:ADM IN Location: [place] [address] Progress Note Patient was supposed to get upper endoscopy today. However, she was given sedation and was sedated. Therefore she could not give consent. Physical Exam Const alert, oriented x3, no [...] for EGD tomorrow. Keep n.p.o. past midnight. Visit Charges Inpatient E&M: 04369 Init Hosp L3 06/04/251746 <Electronically signed by Kevin Gonzalez DO> Kevin Gonzalez DO Cosigner Signature (if applicable): CC: ~ Signed ADDENDUM by Kevin Gonzalez DO on 06/04/25 at 1747 Visit Charges Inpatient E&M: 64102 Subs Hosp L3 06/04/251746 <Electronically signed by Kevin llanos DO> Date _ Kevin Gonzalez DO Cosigner Signature (if applicable): Date cc: ~* Signed [facility] Work Phone: 1(893) 730-234307-17-2025 Progress note Author Roman Mckeon [facility] Note Date/Time June 04, 2025 8:38 am [facility] Medical Records Department [address] [place] [address] Progress Note - Hospitalist 06/04/25 0834 MR#: [id number] Acct: [id number] Name: ANGÉLICA YO Rep #:[id number] 3 : 1955 69 From: Roman Mckeon MD PCP: Dr. Jacinda Benton MD Status:ADM IN Location: [place] [address] Reason for Visit Chief Complaint: Bilateral lower extremities swelling Subjective Subjective Patient was kept n.p.o. overnight and is scheduled to undergo EGD this a.m. Patient seen this a.m. appears ill looking has nausea and blood pressure has been running low 12 the whole night. Hemoglobin up to 7.6. Potassium 2.9 Objective Data Objective Data Vital Signs: Vital Signs Temp Pulse Resp BP Pulse Ox O2 Del Method O2 Flow Rate 97.4 F L 57 L 18 97/75 100 Nasal Cannula 2 06/04/25 02:28 06/04/25 07:00 06/04/25 07:00 06/04/25 07:00 06/04/25 07:00 06/04/25 07:00 06/04/25 07:00 Oxygen Flow Rate (L/min) 2 Oxygen Delivery Method Nasal Cannula Weight: 47.6 kg Body Mass Index (BMI) 17.4 Intake & Output: Intake and Output for Last 24 Hours 06/02/25 06/03/25 06/04/25 23:59 23:59 23:59 Intake Total 1680 / 1680 500 / 500 Output Total 700 / 700 Balance 1680 / 1680 -200 / -200 Medical Nutrition Assessment Dietitian: Malnutrition Criteria Met Start: 06/03/25 14:52 Freq: Status: Active Protocol: Document 06/03/25 14:52 SB (Rec: 06/03/25 14:52 SB [id number]) Nutrition Malnutrition Evidence of Yes Malnutrition Exists Malnutrition (severe Chronic ): Evidenced By Suboptimal Energy Intake (Moderate),Weight Loss (Severe ) Clinical Problem Chronic Disease or Condition Related Malnutrition Etiology moderate to severe malnutrition related to inadequate oral/energy intake Signs/Symptoms as evidenced by PO meeting <50% of estimated nutrition needs x 2-3 days and 9% unintentional weight loss x5 months. Status Active Problem Recommendation Dietitian Recommend advanced diet as tolerated to liberal regular Recommendations/ . Changes Continue 120ml EPHP TID with medpass. Will monitor weight trends. Lab / Micro Data 06/04/25 02:50 06/04/25 02:50 Labs: Laboratory Results - last 24 hr 06/03/25 03:20: Crossmatch See Detail 06/03/25 03:20: Crossmatch See Detail 06/03/25 08:44: Hgb Cancelled, Hct Cancelled, Diff Path Review Cancelled 06/03/25 12:22: Hgb 7.8 L, Hct 25.2 L 06/03/25 19:49: Hgb 7.9 L, Hct 24.7 L 06/04/25 02:50: WBC 8.0, RBC 3.07 L, Hgb 7.6 L, Hct 24.3 L, MCV 79.2 L, MCH 24.8L, MCHC 31.3 L D, RDW Std Deviation 52.5 H, RDW Coeff of David 18.1 H, Plt Count 129 L, MPV 9.9, Immature Gran % (Auto) 0.600, Neut % (Auto) 68.8, Lymph % (Auto)14.1 L, Johnston % (Auto) 12.9 H, Eos % (Auto) 3.1, Baso % (Auto) 0.5, Absolute Neuts (auto) 5.5, Absolute Lymphs (auto) 1.13, Nucleated RBC % 2.0, PT 15.4 H, INR 1.2, APTT 29.9, Sodium 136, Potassium 2.9 L, Chloride 97 L, Carbon Dioxide 26.9, Anion Gap 12, BUN 17, Creatinine 1.15, Estim Creat Clear Calc 34.35 L, EstGFR (MDRD) Non-Af 51 L, BUN/Creatinine Ratio 14.9, Glucose 85, Calcium 7.5 L, Phosphorus 3.7, Magnesium 1.6 Micro: Microbiology 06/03/25 03:39 Stool Stool Occult Blood (CARMEN) - Final Physical Exam Narrative GENERAL: Patient appears ill looking HEENT: Atraumatic; normocephalic EYES; Anicteric, pallor of the conjunctiva NECK; supple, normal thyroid, RESPIRATORY: Diminished to auscultation CARDIOVASCULAR: Regular S1 S2, GI: soft, normoactive bowel sounds, : No Renal angle tenderness; EXTREMITIES: No edema, no clubbing, MUSCULOSKELETAL: no muscle wasting NEURO: Awake; no lateralizing signs. SKIN: No Rash PSYCH; Flat affect Assessment & Plan Assessment/Plan (1) Anemia: (2) Congestive heart failure: PLAN: Plan Patient is a 69-year-old lady who presented with swelling involving both lower extremities found to have hemoglobin of 5.2 1. Acute congestive heart failure with preserved ejection fraction ? Pressure titrated by patient's severe anemia. Patient has been admitted to monitored bed placed on strict input and output, daily weights, fluid restriction IV furosemide ? 06/04/2025; echo from 01/11/2025 demonstrated EF of 70%. With patient blood pressure running on the low side decreased furosemide dose 2. Acute symptomatic anemia ? Patient hemoglobin on admission was 5.2. 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 Treated with a heater probe. Colonoscopy revealed One 10 mm polyp at the splenic flexure, removed with a hot snare. Resected and retrieved. - Diverticulosis in the recto-sigmoid colon, in the sigmoid colon, in the descending colon and in the ascending colon. - A few ulcers in the rectum. Biopsied. An order was given for patient to be transfused with 2 unit PRBC. Admitted to monitored bed consultation placed to Dr. Gonzalez with GI from the emergency department. Patient was kept n.p.o. pending repeat endoscopic evaluation ? Patient hemoglobin up to 7.6 following transfusion with 2 unit PRBC 3. Paroxysmal A-fib ? Rate controlled on systemic anticoagulation with apixaban held given her presentation. Patient apixaban has been held for a week following her admissionafter her GI bleed. Given the recurrent nature of symptoms patient may not be agood candidate for systemic anticoagulation 4. Hypertension - Blood pressure controlled, home medications continued with dose adjustment as needed ? 06/04/2025; held patient antihypertensives given her relatively low blood pressure patient did receive fluid resuscitation 5. Hypothyroidism ? Patient is on levothyroxine did continue with home dose 6. Peripheral arterial disease ? With history of bilateral carotid artery stenosis, peripheral vascular occlusive disease. Patient was on systemic anticoagulation with apixaban held given about reasons 7. Dyslipidemia ?Patient is on statin therapy, continued at home dose 8. Multiple sclerosis ? Complicating patient's care patient is on baclofen for muscle relaxation 9. Chronic pain syndrome ? Restarted patient home pain regimen 10. DVT prophylaxis ? Patient is on apixaban held given his GI bleed 11. Hypokalemia ? Corrected per protocol, repeat potassium ordered in 4 hours to assess for response to therapy Time spent in the patient's overall evaluation,decision-making process, review of diagnostic data, adjustment of management, discussion with other providers, nursing nursing and ancillary staff involved in patient's care [id number] Minutes Charges/Coding Visit Charges Inpatient E&M: 54247 Subs Hosp L3 06/04/25 0838 <Electronically signed by Roman Mckeon MD> Cosigner Signature (if applicable): CC: ~ Signed [facility] Work Phone: 1(759) 890-421107-16-2025 Consult note Author Kevin Friend [facility] Note Date/Time June 03, 2025 4:15 pm [facility] Medical Records Department [address] [place] [address] Consultation - GI 06/03/25 1609 MR#: [id number] Acct: [id number] Name: ANGÉLICA YO Rep #:[id number] : 1955 69 From: Kevin Gonzalez DO PCP: Dr. Jacinda Benton MD Status:ADM IN Location: [place] [address] HPI Consult Data Date of Consult: 06/03/25 HPI Narrative Reason for Consultation: Anemia HPI Narrative: ANGÉLICA YO, is a 69 F who presents to the ED with worsening fatigue and weakness. I saw her back in the beginning of April for similar presentation. Her hemoglobin was 7.3 on admission and dropped down to 6.3. She was transfused1 unit of packed red blood cells. She underwent an EGD due to the duodenal bulband was not discovered to have any abnormalities except for a duodenal AVM whichwas treated endoscopically. She underwent a colonoscopy and was discovered to have small adenomatous polyps that were removed with biopsy and 2 of the angiodysplastic lesions that were treated endoscopically. Her current hemoglobin was down to 5.5. She has been admitted for blood and iron transfusions for iron deficiency anemia possibly secondary to recurrent GI bleeding in the setting of a patient on aspirin and Eliquis there is currently still smoking and history of CAD and carotid artery disease. [facility] Medical History Hypertensive emergency NSTEMI, initial episode of care Mitral stenosis On home oxygen therapy Atrial fibrillation Chronic low back pain Diastolic hypertension Elevated troponin Chest pain PAF (paroxysmal atrial fibrillation) Emphysema of lung Smoking greater than 30 pack years Nicotine dependence, cigarettes, uncomplicated New onset atrial fibrillation Elevated troponin Atrial fibrillation Hypothyroidism Smoker Coronary artery disease TIA (transient ischemic attack) Influenza A TOLEDO (dyspnea on exertion) Atherosclerotic heart disease of [place] coronary artery without angina pectoris Cardiac murmur Nonsustained paroxysmal supraventricular tachycardia Multiple sclerosis Nonobstructive [...] Stomach morphine AdvReac Nausea Verified 06/03/25 02:30 Eqcywht-ZQC-PcB Reductase AdvReac Nausea Verified 06/03/25 02:30 Inhibitor (Iknumgk-Dnd-Xej Reductase Inhibitor) Family History Mother Cancer CAD [...] coffee and tea ROS Constitutional Constitutional: Denies fatigue, fever(s), poor appetite, weight gain or weight loss Gastrointestinal Gastrointestinal: Denies belching, bloating, change in bowel habits, change in stool character, chewing difficulty, coffee ground emesis, constipation, cramping, diarrhea, dyspepsia, dysphagia, early satiety, excessive flatus, fecalincontinence, heartburn, hematemesis, hematochezia, hemorrhoids, loose stools, melena, nausea, odynophagia, rectal bleeding, tenesmus, vomiting or weight changes Physical Exam Const alert, oriented x3, no apparent distress and healthy appearing General Appearance: cooperative GI normal to inspection, nondistended, normoactive bowel sounds, soft to palpation,non-tender and non-distended Percussion: normal to percussion Rectal Exam: deferred Medical Records Data Medical Nutrition Assessment Dietitian: Malnutrition Criteria Met Start: 06/03/25 14:52 Freq: Status: Active Protocol: Document 06/03/25 14:52 SB (Rec: 06/03/25 14:52 SB [id number]) Nutrition Malnutrition Evidence of Yes Malnutrition Exists Malnutrition (severe Chronic ): Evidenced By Suboptimal Energy Intake (Moderate),Weight Loss (Severe ) Clinical Problem Chronic Disease or Condition Related Malnutrition Etiology moderate to severe malnutrition related to inadequate oral/energy intake Signs/Symptoms as evidenced by PO meeting <50% of estimated nutrition needs x 2-3 days and 9% unintentional weight loss x5 months. Status Active Problem Recommendation Dietitian Recommend advanced diet as tolerated to liberal regular Recommendations/ . Changes Continue 120ml EPHP TID with medpass. Will monitor weight trends. Lab / Micro Data 06/03/25 12:22 06/03/25 02:34 Labs: Laboratory Results - last 24 hr 06/03/25 02:34: WBC 7.6, RBC 2.28 L, Hgb 5.2 L*, Hct 18.0 L, MCV 78.9 L, MCH 22.8 L, MCHC 28.9 L, RDW Std Deviation 58.9 H, RDW Coeff of David 20.2 H, Plt Count 181, MPV 10.6, Immature Gran % (Auto) 0.800, Neut % (Auto) 69.4, Lymph % (Auto) 13.4 L, Johnston % (Auto) 14.0 H, Eos % (Auto) 2.0, Baso % (Auto) 0.4, Absolute Neuts (auto) 5.3, Absolute Lymphs (auto) 1.02, Nucleated RBC % 3.9, RBCMorphology N CYTIC, Anisocytosis RARE, Stomatocytes 1+, Sodium 136, Potassium 3.7, Chloride 101, Carbon Dioxide 20.9 L, Anion Gap 14, BUN 23 H, Creatinine 1.07, Estim Creat Clear Calc 38.46 L, Est GFR (MDRD) Non-Af 56 L, BUN/CreatinineRatio 21.6 H, Glucose 116 H, Calcium 8.1, Magnesium 2.1, Total Bilirubin 0.47, Direct Bilirubin 0.25, AST 37 H, ALT 95 H, Alkaline Phosphatase 113 H, NT pro BNP II 6776 H, Total Protein 5.7 L, Albumin 3.7, Globulin 2.0 L 06/03/25 03:20: Blood Type O POSITIVE, Antibody Screen NEGATIVE, Crossmatch See Detail 06/03/25 03:20: Crossmatch See Detail 06/03/25 08:44: Hgb Cancelled, Hct Cancelled, Diff Path Review Cancelled 06/03/25 12:22: Hgb 7.8 L, Hct 25.2 L Micro: Microbiology 06/03/25 03:39 Stool Stool Occult Blood (CARMEN) - Final Imaging Radiology Impression Chest X-Ray 06/03/25 03:20 IMPRESSION: Small right effusion. Reading Location: [place] [address] Assessment & Plan Assessment/Plan (1) Symptomatic anemia: [...] She will have an ASA of 3. 06/03/25 3082 <Electronically signed by Kevin Friend DO> Cosigner Signature (if applicable): CC: Dr. Jacinda Benton MD~ Signed [facility] Work Phone: 1(760) 147-375507-16-2025 History and physical note Author Roman Mckeon [facility] Note Date/Time June 03, 2025 9:34 am [facility] Medical Records Department [address] [place] [address] H&P Exam - Hospitalist 06/03/25 0739 MR#: [id number] Acct: [id number] Name: ANGÉLICA YO Rep #:[id number] 3 : 1955 69 From: Roman Mckeon MD PCP: Dr. Jacinda Benton MD Status:ADM IN Location: [place] [address] HPI - General General Date of Admission: 06/03/25 Date of Service: 06/03/25 Chief Complaint: Bilateral lower extremities swelling HPI Narrative ANGÉLICA YO, is a 69 F with recent admission on 04/22/2025 with symptomatic anemia underwent EGD was found to have multiple nonbleeding angiodysplastic lesions treated with heater probe, paroxysmal A-fib on systemic anticoagulation with apixaban who presented to the emergency department with swelling involving both lower extremities. Patient did notice increasing swelling involving both lower extremities 3 days prior to her admission. She also did complain of feeling tired. In view of the persistence of her symptoms presented to the emergency department. Hemoglobin on admission was found to be 5.2. Chest x-raydemonstrated small right effusion. An assessment of acute symptomatic anemia with suspected congestive heart failure made admitted to a monitored bed for further manage [facility] Medical History (Updated 06/03/25 @ 09:01 by Chelita Yeager) Hypertensive emergency NSTEMI, initial episode of care Mitral stenosis On home oxygen therapy Atrial fibrillation Chronic low back pain Diastolic hypertension Elevated troponin Chest pain PAF (paroxysmal atrial fibrillation) Emphysema of lung Smoking greater than 30 pack years Nicotine dependence, cigarettes, uncomplicated New onset atrial fibrillation Elevated troponin Atrial fibrillation Hypothyroidism Smoker Coronary artery disease TIA (transient ischemic attack) Influenza A [place]OL[place]O (dyspnea on exertion) Atherosclerotic heart disease of [place] coronary artery without angina pectoris Cardiac murmur Nonsustained paroxysmal supraventricular tachycardia Multiple sclerosis Nonobstructive [...] Stomach morphine AdvReac Nausea Verified 06/03/25 02:30 Godhthm-JOI-CwU Reductase AdvReac Nausea Verified 06/03/25 02:30 Inhibitor (Nvxxjsv-Rik-Rbw Reductase Inhibitor) Family History Mother Cancer CAD [...] denies cough, sputum production, shortness of breath, CARDIAC: denies chest pain, palpitations, orthopnea, PND GASTROINTESTINAL: denies abdominal pain, nausea, vomiting, melena, GENITOURINARY: denies dysuria, urgency, frequency, heamaturia EXTREMITY: denies swelling MUSCULOSKELETAL: denies current joint pain or tenderness NEUROLOGIC: denies focal numbness, weakness, tingling HEMATOLOGIC: denies easy bruising and/or hemorrhage INTEGUMENT: denies rashes PSYCHIATRIC: denies suicidal or homicidal ideation Vital Signs Vital Signs Vital Signs: 06/03/25 02:30 06/03/25 02:30 06/03/25 [...] Oxygen Delivery Method Oxygen Flow Rate (L/min) Weight Weight: 49.8 kg Body Mass Index (BMI) 17.7 Physical Exam Narrative ENERAL: cooperative HEENT: Atraumatic; normocephalic EYES; Anicteric, pallor of the conjunctiva NECK; supple, normal thyroid, RESPIRATORY: Diminished to auscultation CARDIOVASCULAR: Regular S1 S2, GI: soft, normoactive bowel sounds, : No Renal angle tenderness; EXTREMITIES: No edema, no clubbing, MUSCULOSKELETAL: no muscle wasting NEURO: Awake; no lateralizing signs. SKIN: No Rash PSYCH; Flat affect Results Lab / Micro Data 06/03/25 08:44 06/03/25 02:34 Labs: Laboratory Results - last 24 hr 06/03/25 02:34: WBC 7.6, RBC 2.28 L, Hgb 5.2 L*, Hct 18.0 L, MCV 78.9 L, MCH 22.8 L, MCHC 28.9 L, RDW Std Deviation 58.9 H, RDW Coeff of David 20.2 H, Plt Count 181, MPV 10.6, Immature Gran % (Auto) 0.800, Neut % (Auto) 69.4, Lymph % (Auto) 13.4 L, Johnston % (Auto) 14.0 H, Eos % (Auto) 2.0, Baso % (Auto) 0.4, Absolute Neuts (auto) 5.3, Absolute Lymphs (auto) 1.02, Nucleated RBC % 3.9, RBCMorphology N CYTIC, Anisocytosis RARE, Stomatocytes 1+, Sodium 136, Potassium 3.7, Chloride 101, Carbon Dioxide 20.9 L, Anion Gap 14, BUN 23 H, Creatinine 1.07, Estim Creat Clear Calc 38.46 L, Est GFR (MDRD) Non-Af 56 L, BUN/CreatinineRatio 21.6 H, Glucose 116 H, Calcium 8.1, Magnesium 2.1, Total Bilirubin 0.47, Direct Bilirubin 0.25, AST 37 H, ALT 95 H, Alkaline Phosphatase 113 H, NT pro BNP II 6776 H, Total Protein 5.7 L, Albumin 3.7, Globulin 2.0 L 06/03/25 03:20: Blood Type O POSITIVE, Antibody Screen NEGATIVE, Crossmatch See Detail Micro: Microbiology 06/03/25 03:39 Stool Stool Occult Blood (CARMEN) - Final Imaging Radiology Impression Chest X-Ray 06/03/25 03:20 IMPRESSION: Small right effusion. Reading Location: [place] [address] Assessment & Plan Assessment/Plan (1) Anemia: (2) Congestive heart failure: PLAN: Plan Patient is a 69-year-old lady who presented with swelling involving both lower extremities found to have hemoglobin of 5.2 1. Acute congestive heart failure ? Unspecified at this point, possibly preceded by patient's severe anemia. Patient has been admitted to monitored bed placed on strict input and output, daily weights, fluid restriction IV furosemide and echo ordered for EF assessment 2. Acute symptomatic anemia ? Patient hemoglobin on admission was 5.2. 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 Treated with a heater probe. Colonoscopy revealed One 10 mm polyp at the splenic flexure, removed with a hot snare. Resected and retrieved. - Diverticulosis in the recto-sigmoid colon, in the sigmoid colon, in the descending colon and in the ascending colon. - A few ulcers in the rectum. Biopsied. An order was given for patient to be transfused with 2 unit PRBC. Admitted to monitored bed consultation placed to Dr. Gonzalez with GI from the emergency department. Patient was kept n.p.o. pending repeat endoscopic evaluation 3. Paroxysmal A-fib ? Rate controlled on systemic anticoagulation with apixaban held given her presentation. Patient apixaban has been held for a week following her admissionafter her GI bleed. Given the recurrent nature of symptoms patient may not be agood candidate for systemic anticoagulation 4. Hypertension - Blood pressure controlled, home medications continued with dose adjustment as needed 5. Hypothyroidism ? Patient is on levothyroxine did continue with home dose 6. Peripheral arterial disease ? With history of bilateral carotid artery stenosis, peripheral vascular occlusive disease. Patient was on systemic anticoagulation with apixaban held given about reasons 7. Dyslipidemia ?Patient is on statin therapy, continued at home dose 8. Multiple sclerosis ? Complicating patient's care patient is on baclofen for muscle relaxation 9. Chronic pain syndrome ? Restarted patient home pain regimen 10. DVT prophylaxis ? Patient is on apixaban held given his GI bleed Time spent in the patient's overall evaluation,decision-making process, review of diagnostic data, adjustment of management, discussion with other providers, nursing nursing and ancillary staff involved in patient's care documentation 75 Minutes Advance planning; did discuss with the patient and family regarding advanced directives as well as CODE STATUS. Did explain the various scenarios involved (FULL CODE, DNR CCA, DNR CCA with no intubation, and DNR CC and what each meant) patient elected to remain full code. Order was placed. Time spent on discussion 18 minutes. Charges/Coding Multi Select Codes Visit Charges Visit Charges: 64521 Init Hosp Hospitalists' Procedures Procedures: 21458 Advncd Care Plan 30 Min 06/03/25 0911 <Electronically signed by Roman Mckeon MD> Cosigner Signature (if applicable): CC: Dr. Roman Mckeon MD; Dr. Jacinda Benton MD~ Signed [facility] Work Phone: 1(745) 182-441907-16-2025 Discharge summary Author Yasmani Haynes [facility] Note Date/Time June 03, 2025 7:47 am [facility] Medical Records Department [address] [place] [address] Emergency Department Summary 06/03/25 MR#: [id number] Acct: [id number] Name: ANGÉLICA YO Rep #:[id number] 3 : 1955 69 From: Yasmani Haynes DO PCP: Dr. Jacinda Benton MD Status:REG ER Location: ED HPI [...] the persistent pain comes in for evaluation. [facility] Medical History Hypertensive emergency NSTEMI, initial episode of care Emphysema of lung Smoking greater than 30 pack years New onset atrial fibrillation [place] (dyspnea on exertion) Atherosclerotic heart disease of [place] coronary artery without angina pectoris Cardiac murmur [...] Stomach morphine AdvReac Nausea Verified 06/03/25 02:30 Fumvfpp-VIB-EiQ Reductase AdvReac Nausea Verified 06/03/25 02:30 Inhibitor (Tdusmiv-Xfr-Qoe Reductase Inhibitor) Family History Mother Cancer CAD [...] of blood. The case was discussed with helicopter mechanic/Dr. Gonzalez. He states that with her anemia [...] (Auto) 69.4 Lymph % (Auto) 13.4 L Johnston % (Auto) 14.0 H Eos % (Auto) [...] 03:20 IMPRESSION: Small right effusion. Reading Location: [facility]- Chest x-ray is interpreted by the emergency medicine physician reveals a small right pleural effusion without acute infiltrate or pneumothorax Management Discussion w/another healthcare provider: Hospitalist and Cattle Killer Discharge Plan Triage Chief Complaint: Edema ED Provider: Yasmani Haynes Dx/Rx/DC Orders Clinical Impression: Anemia, Congestive heart failure, Paroxysmal atrial fibrillation, Current use of [facility] anticoagulation Prescriptions: No Action gabapentin 800 mg [...] 10 mg PO QDAY Primary Care Provider: Jacinda Benton Referrals: Jacinda Benton MD [Primary Care Provider] - Print Language: Surinamese Disposition Disposition: Acute Care Hospital [facility] What to do if you have Problems For any increased pain, shortness of breath, bleeding, nausea or vomiting, chestpain, or any unexpected problems, contact your Primary Care Provider. Call [facility] ([phone]) or report to the closest Emergency Room. Call 911 if necessary. 06/03/25 0747 <Electronically signed by Yasmani Haynes DO> Cosigner Signature (if applicable): CC: Dr. Jacinda Benton MD ~ Signed [facility] Work Phone: 1(314) 868-709307-16-2025 Radiology Diagnostic study [facility]06-27-2025 Radiology Diagnostic study [facility]06-18-2025 Telephone encounter Note* Telephone Encounter - [facility] - 05/06/2025 1:48 PM EDT Faxed New Auth to [facility] @ [phone], Valid 05/06/25 Thru 07/05/25 Brain MRI wo Contrast. [id number] Miscellaneous Notes* Telephone Encounter - Maeve Fargo - 05/06/2025 1:48 PM EDT Faxed New Auth to [facility] @ [phone], Valid 05/06/25 Thru 07/05/25 Brain MRI wo Contrast. * Telephone Encounter - Madelin Olvera - 05/05/2025 2:39 PM EDT Name of caller: [facility] Contact phone number: [phone] Relationship to Patient: Imaging Provider: Shane Practice: neuro Chief Complaint/Reason for Call: Viki states patients prior auth is expiring and will need a new one for patient schedule MRI on 05/20 @130 fax # [phone]. documented in this encounterSThe [facility] [id number] Telephone encounter Note* Telephone Encounter - Madelin Olvera - 05/05/2025 2:39 PM EDT Name of caller: [facility] Contact phone number: [phone] Relationship to Patient: Imaging Provider: Shane Practice: neuro Chief Complaint/Reason for Call: Viki states patients prior auth is expiring and will need a new one for patient schedule MRI on 05/20 @130 fax # [phone]. [facility] [id number] Telephone encounter Note* Telephone Encounter - ANTWON Harrington CNP - 04/24/2025 1:24 PM EDT Baclofen 20mg sent to Sp in [place]. [place] [id number] Miscellaneous Notes* Telephone Encounter - ANTWON Harrington CNP - 04/24/2025 1:24 PM EDT Baclofen 20mg sent to Sp in [place]. * Telephone Encounter - Jeni Crook - 04/24/2025 12:21 PM EDT Name of caller: Angélica Contact phone number: [phone] Relationship to Patient: patient Provider: AURORA Lynn Practice: Neurology Chief Complaint/Reason for Call: Angélica advised that she just got out of the hospital, and she needsher Baclofen script sent in to her [facility] - [place], [place] - [address] [[id number]]. She does not use the [facility] any longer, and she is completely out. Best time of day caller can be reached: any Patient advised that office/PCP has 24-48 business hours to return their call: Yes documented in this [facility]06-06-2025 Telephone encounter Note* Telephone Encounter - Jeni Crook - 04/24/2025 12:21 PM EDT Name of caller: Angélica Contact phone number: [phone] Relationship to Patient: patient Provider: AURORA Lynn Practice: Neurology Chief Complaint/Reason for Call: Angélica advised that she just got out of the hospital, and she needsher Baclofen script sent in to her [facility] - [place], [place] - [address] [[id number]]. She does not use the [facility] any longer, and she is completely out. Best time of day caller can be reached: any Patient advised that office/PCP has 24-48 business hours to return their call: Yes [facility] [id number] Discharge summary Author Roman Mckeon [facility] Note Date/Time April 22, 2025 2:21p [facility] Medical Records Department [address] [facility] [place] [address] Discharge Summary 04/22/25 1411 MR#: [id number] Acct: [id number] Name: ANGÉLICA YO Rep #:[id number] : 1955 69 From: Roman Mckeon MD PCP: Dr. Jacinda eBnton MD Status:ADM IN [id number] Prov[facility] Date of Admission: 04/18/25 Primary Care Physician: Dr. Jacinda Benton MD Consultations 04/19/25 08:12 Consult: Gastroenterology Routine Consulting Provider: [facility] Reason for Consult: GI Bleed EMERGENT [...] Attending Provider: Roman Mckeon Primary Care Provider: Jacinda Benton Consulting Providers: Sachin Murillo Discharge Orders/Prescriptions [...] Resume on 04/28/25. Referrals / Follow Up: Jacinda Benton MD [Primary Care Provider] - Within 1 Week Disposition Disposition (needs filled in before D/C Order can be placed): Home Health Service Charges/Coding Visit Charges Inpatient E&M: 16704 Disch Hosp >30min 04/22/25 1421 <Electronically signed by Roman Mckeon MD> Cosigner Signature (if applicable): CC: Dr. Roman Mckeon MD; Dr. Jacinda Benton MD~ Signed [facility] Work Phone: 1(250) 197-382806-04-2025 Consult note Author Benjamin Cm [facility] Note Date/Time April 22, 2025 1:30p m [facility] Medical Records Department [address] [place] [address] Anesthesia Postop Eval I 04/22/25 1329 MR#: [id number] Acct: [id number] Name: ANGÉLICA YO Rep #:[id number] 3 : 1955 69 From: Benjamin Cm PCP: Dr. Jacinda Benton MD Status:ADM IN Y Race: C Location: ND3 MS305 -1 Anesthesia: Postop Eval I Current [...] Cm Cosigner Signature: Date CC: ~ Signed [facility] Work Phone: 1(291) 108-145806-04-2025 Progress note Author Kevin Friend [facility] Note Date/Time April 22, 2025 12:31 pm [facility] Medical Records Department [address] [facility] [place] [address] Progress Note 04/22/25 1230 MR#: [id number] Acct: [id number] Name: ANGÉLICA YO Rep #:[id number] 2 : 1955 69 From: Kevin Gonzalez DO PCP: Dr. Jacinda Benton MD Status:ADM IN Location: [place] [address]-1 Progress Note The patient underwent NG tube [...] ASA of 3. Visit Charges Inpatient E&M: 09995 Subs Hosp L2 04/22/25 1231 <Electronically signed by Kevin Gonzalez DO> Kevin Gonzalez DO Cosigner Signature (if applicable): CC: ~ Signed [facility] Work Phone: 1(438) 960-908206-04-[address] [facility]06-04-2025 Procedure [facility]06-04-2025 Procedure [facility]06-04-2025 Consult note Author Aime Covarrubias [facility] Note Date/Time April 22, 2025 11:17 am [facility] Medical Records Department [address] [place] [address] Pre-Anesthesia Evaluation 04/22/25 1116 MR#: [id number] Acct: [id number] Name: ANGÉLICA YO Rep #:[id number] 4 : 1955 69 From: Aime Covarrubias MD PCP: Dr. Jacinda Benton MD Status:ADM IN Y Race: C [facility] [facility] [place] MS305 -1 ASA Classification* ASA Classification ASA [...] Procedure(s): EGD 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 - harness brusher: 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 - harness brusher Hx Hospitalization No 04/15/21 11:49 Any Problems [...] take am of surgery PONV PONV - harness brusher: PONV - harness brusher Female HX of Motion Sickness HX of N/V After Surgery Non-Smoker Duration of Surgery greater than 60 minutes Number of Risk Factors PONV Score Height & Weight Height & Weight: Anesthesia: Height & Weight Height 5 ft 5 in 04/21/25 15:30 Weight: 45.7 kg 04/21/25 15:30 Body Mass Index (BMI) 16.7 04/21/25 15:30 Respiratory Assessment Respiratory Assessment - harness brusher: Respiratory Tract Infection Hx - harness brusher Hx Respiratory Tract Infection No 02/24/24 23:50 STOP Sleep Apnea STOP Sleep Apnea - harness brusher: STOP Sleep Apnea - harness brusher Hx Hypertension Yes 04/18/25 21:53 Hx Sleep [...] Tobacco Use History Tobacco Use History - harness brusher: Tobacco Use History - harness brusher Tobacco Use Smoking Status Light Smoker (<10/day) 04/20/25 21:39 Hx Tobacco Use Yes 04/18/25 21:53 Years Smoking Packs Smoked per Day Smoking Cessation Date was within the last 15 years Hx Smoking Cessation Date Hx Smoking Cessation No 04/18/25 21:53 Counseling Hematologic Medial History Hematologic Hx - harness brusher: 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 Hx of Blood Transfusion Yes 04/18/25 21:53 [...] confused, unrespo /Reproduction History /Reproductive History - harness brusher: /Reproductive Hx- harness brusher Hx Now Gestational Age (in weeks): EDC: [...] Capsule (5,000 Units) PO Not Given DAILY [facility] Docusate Sodium 100 mg 04/18/25 22:00 04/22/25 [...] mls @ 15 mls/hr 04/18/25 21:41 IV .[id number] PRN Saline Flush Sodium Chloride 250 mls @ 15 mls/hr 04/18/25 21:41 IV .[id number] PRN Additional IVPB Infusion Pantoprazole Sodium 40 mg/ 100 mls @ 330 mls/hr 04/18/25 21:57 04/22/25 09:55 Sodium Chloride IV 330 mls/hr Q24 VIMAL Administration Lactated Ringer's 1,000 mls @ 15 mls/hr 04/20/25 13:00 04/21/25 15:37 IV 15 mls/hr .Q48H VIMAL Administration Lactated Ringer's 1,000 mls @ 15 mls/hr 04/22/25 11:15 IV .Q48H VIMAL Ipratropium Trevorton 2 spray 04/19/25 07:17 Ipratropium Trevorton 0.06% Nasal [place] NASAL TID PRN allergy symptoms Levothyroxine Sodium 50 mcg 04/19/25 06:00 04/22/25 05:14 Levothyroxine 50 Mcg Tablet PO Not Given DAILY@0600 [facility] Nutritional Formula (Lactose Free) 120 ml 04/19/25 08:00 04/22/25 07:18 Ensure Clear 120 Ml Liquid PO Not Given TIDCM [facility] Oxycodone HCl 10 mg 04/19/25 07:19 04/22/25 [...] 10 ml UD PRN Administration SALINE FLUSH [facility] Medical History Hypertensive emergency NSTEMI, initial episode of care Emphysema of lung Smoking greater than 30 pack years New onset atrial fibrillation TOLEDO (dyspnea on exertion) Atherosclerotic heart disease of [place] coronary artery without angina pectoris Cardiac murmur [...] Stomach morphine AdvReac Nausea Verified 04/18/25 18:19 Iukazyn-CHL-XmX Reductase AdvReac Nausea Verified 04/18/25 18:19 Inhibitor (Veuyxzk-Gfo-Lia Reductase Inhibitor) Family History Mother Cancer CAD [...] MD Cosigner Signature: Date CC: ~ Signed [facility] Work Phone: 1(214) 978-201106-04-2025 Progress note Author Roman Mckeon [facility] Note Date/Time April 22, 2025 8:32a m [facility] Medical Records Department [address] [facility] [place] [address] Progress Note - Hospitalist 04/22/25 0713 MR#: [id number] Acct: [id number] Name: ANGÉLICA YO Rep #:[id number] 0 : 1955 69 From: Roman Mckeon MD PCP: Dr. Jacinda Benton MD Status:ADM IN Location: [place] [address] Reason for Visit Reason for Visit: Diagnoses [...] pain regimen Charges/Coding Visit Charges Inpatient E&M: 78415 Subs Hosp L2 04/22/25 0832 <Electronically signed by Roman Mckeon MD> Cosigner Signature (if applicable): CC: ~ Signed [facility] Work Phone: 1(218) 620-797806-03-2025 Consult note Author Zaki Levin [facility] Note Date/Time April 21, 2025 5:01p [facility] Medical Records Department [address] [place] [address] Anesthesia Postop Eval II 04/21/25 1700 MR#: [id number] Acct: [id number] Name: ANGÉLICA YO Rep #:[id number] 2 : 1955 69 From: Zaki JOINER PCP: Dr. Jacinda Benton MD Status:ADM IN Y Race: C Location: MS3 MS305 -1 Anesthesia Postop Eval I Sum Postop Eval Completion status Anesthesia document: Postop Eval 1 completed: Yes Anesthesia Postop Eval I Summary Anesthesia Postop Eval I Summary: Anesthesia Postop Eval I: Assessment Summary Airway patent Yes 04/21/25 16:57 LUSTER APPLICATOR.MDOT Spontaneous unlabored Yes 04/21/25 16:57 LUSTER APPLICATOR.MDOT respirations Mental status Awake,Calm 04/21/25 16:57 LUSTER APPLICATOR.MDOT nausea No 04/21/25 16:57 LUSTER APPLICATOR.MDOT Vomiting No 04/21/25 16:57 LUSTER APPLICATOR.MDOT Anesthesia Postop Eval I: Fluid Summary Crystalloid volume administer 100 04/21/25 16:57 LUSTER APPLICATOR.MDOT (ml) Colloids volume administered ( ml) Blood Product volume administered (ml) Total IV fluid infused 100 04/21/25 16:57 LUSTER APPLICATOR.MDOT Anesthesia Postop Eval I: Summary Notes Anesthesia Complication No 04/21/25 16:57 LUSTER APPLICATOR.MDOT Anesthesia Complication Comment: Post-operative progress note Anesthesia: Postop Eval II Evaluation Mental status: Awake and Calm Pain Level: 0 nausea: No Vomiting: No Complications Anesthesia Complication: No 04/21/25 1701 <Electronically signed by Zaki Levin CRNA> Date _ Zaki Levin CRNA Cosigner Signature: Date CC: ~ Signed [facility] Work Phone: 1(444) 164-214706-03-2025 Consult note Author Zaki Levin [facility] Note Date/Time April 21, 2025 4:57p [facility] Medical Records Department [address] [facility] [place] [address] Anesthesia Postop Eval I 04/21/25 1656 MR#: [id number] Acct: [id number] Name: ANGÉLICA YO Rep #:[id number] 8 : 1955 69 From: Zaki Nicholas RNA PCP: Dr. Jacinda Benton MD Status:ADM IN Y Race: C Location: [place] [address] Anesthesia: Postop Eval I Current Vital Signs [...] Anesthesia document: Postop Eval 1 completed: Yes 04/21/25 9911 <Electronically signed by Zaki Levin CRNA> Date _ Zaki Levin CRNA Cosigner Signature: Date CC: ~ Signed [facility] Work Phone: [phone] Progress note Author Kevin Friend [facility] Note Date/Time April 21, 2025 4:16p m [facility] Medical Records Department [address] [place] [address] Progress Note 04/21/25 161 MR#: [id number] Acct: [id number] Name: ANGÉLICA YO Rep #:[id number] 8 : 1955 69 From: Kevin Gonzalez DO PCP: Dr. Jacinda Benton MD Status:ADM IN Location: [place] [address] Progress Note Patient is n.p.o. for EGD [...] prep is complete. Visit Charges Inpatient E&M: 37164 Subs Hosp L3 04/21/25 1616 <Electronically signed by Kevin Gonzalez DO> Kevin Gonzalez DO Cosigner Signature (if applicable): CC: ~ Signed [facility] Work Phone: [phone]) [phone] Consult note Author Storm [facility]un[facility] center[facility] Note Date/Time April 21, 2025 3:54p m [facility] Medical Records Department [address] [place] [address] Pre-Anesthesia Evaluation 04/21/25 1549 MR#: [id number] Acct: [id number] Name: ANGÉLICA YO Rep #:[id number] 7 : 1955 69 From: Storm Gómez MD PCP: Dr. Jacinda Benton MD Status:ADM IN Y Race: C Location: [place] [address] ASA Classification* ASA Classification ASA Classification: 3 [...] Procedure(s): EGD 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 - harness brusher: 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 - harness brusher Hx Hospitalization No 04/15/21 11:49 Any Problems [...] take am of surgery PONV PONV - harness brusher: PONV - harness brusher Female HX of Motion Sickness HX of N/V After Surgery Non-Smoker Duration of Surgery greater than 60 minutes Number of Risk Factors PONV Score Height & Weight Height & Weight: Anesthesia: Height & Weight Height 5 ft 5 in 04/21/25 15:30 Weight: 45.7 kg 04/21/25 15:30 Body Mass Index (BMI) 16.7 04/21/25 15:30 Respiratory Assessment Respiratory Assessment - harness brusher: Respiratory Tract Infection Hx - harness brusher Hx Respiratory Tract Infection No 02/24/24 23:50 STOP Sleep Apnea STOP Sleep Apnea - harness brusher: STOP Sleep Apnea - harness brusher Hx Hypertension Yes 04/18/25 21:53 Hx Sleep [...] Tobacco Use History Tobacco Use History - harness brusher: Tobacco Use History - harness brusher Tobacco Use Smoking Status Light Smoker (<10/day) 04/20/25 21:39 Hx Tobacco Use Yes 04/18/25 21:53 Years Smoking Packs Smoked per Day Smoking Cessation Date was within the last 15 years Hx Smoking Cessation Date Hx Smoking Cessation No 04/18/25 21:53 Counseling Hematologic Medial History Hematologic Hx - harness brusher: 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 Hx of Blood Transfusion Yes 04/18/25 21:53 [...] confused, unrespo /Reproduction History /Reproductive History - harness brusher: /Reproductive Hx- harness brusher Hx Now Gestational Age (in weeks): EDC: [...] mls @ 15 mls/hr 04/18/25 21:41 IV .[id number] PRN Saline Flush Sodium Chloride 250 mls @ 15 mls/hr 04/18/25 21:41 IV .Q49Y44S PRN Additional IVPB Infusion Pantoprazole Sodium 40 mg/ 100 mls @ 330 mls/hr 04/18/25 21:57 04/21/25 10:40 Sodium Chloride IV Infused Q24 VIMAL Infusion Lactated Ringer's 1,000 mls @ 15 mls/hr 04/20/25 13:00 04/21/25 15:37 IV 15 mls/hr .Q48H VIMAL Administration Ipratropium Trevorton 2 spray 04/19/25 07:17 Ipratropium Trevorton 0.06% Nasal [place] NASAL TID PRN allergy symptoms Levothyroxine Sodium 50 mcg 04/19/25 06:00 04/21/25 05:56 Levothyroxine 50 Mcg Tablet PO Not Given DAILY@0600 [facility] Nutritional Formula (Lactose Free) 120 ml 04/19/25 08:00 04/21/25 10:20 Ensure Clear 120 Ml Liquid PO Not Given TIDCM [facility] Oxycodone HCl 10 mg 04/19/25 07:19 04/21/25 10:23 Oxycodone 5 Mg Tablet PO 10 mg Q4H PRN PRN Administration Pain Score 4-10 Polyethylene Glycol 17 gm 04/18/25 22:00 04/21/25 09:02 Polyethylene Glycol 3350 17 Gm Packet PO Not Given BID [facility] Potassium Chloride 20 meq 06/03/25 17:00 Potassium Chloride Oral Soln 20 Meq/15 [...] (dyspnea on exertion) Atherosclerotic heart disease of [place] coronary artery without angina pectoris Cardiac murmur [...] Stomach morphine AdvReac Nausea Verified 04/18/25 18:19 Brrnwxt-AQR-LiN Reductase AdvReac Nausea Verified 04/18/25 18:19 Inhibitor (Karbqrw-Xwy-Vdy Reductase Inhibitor) Family History Mother Cancer CAD [...] no additional complaints, except as documented. 04/21/25 1553 <Electronically signed by Storm steiner MD> Date _ Storm Gómez MD Cosigner Signature: Date CC: ~ Signed [facility] Work Phone: 1(857) 620-255906-03-2025 [facility] 04-21-2025 [facility]06-03-2025 Progress note Author Roman Mckeon [facility] Note Date/Time April 21, 2025 8:22a m [facility] Medical Records Department [address] [facility] [place] [address] Progress Note - Hospitalist 04/21/25 0727 MR#: [id number] Acct: [id number] Name: ANGÉLICA YO Rep #:[id number] 2 : 1955 69 From: Roman Mckeon MD PCP: Dr. Jacinda Benton MD Status:ADM IN [facility] Reason for Visit Reason for Visit: Diagnoses [...] evidence for acute brain abnormality. Reading Location: [place] [address] Physical Exam Narrative GENERAL: cooperative HEENT: Atraumatic; [...] pain regimen Charges/Coding Visit Charges Inpatient E&M: 22755 Subs Hosp L2 04/21/25 0822 <Electronically signed by Roman Mckeon MD> Cosigner Signature (if applicable): CC: ~ Signed [facility] Work Phone: 1([phone]) [phone] Progress note Author Sommer Resendiz [facility] Note Date/Time April 21, 2025 1:33a m [facility] Medical Records Department [address] [place] [address] Progress Note - Hospitalist 04/21/2540 MR#: [id number] Acct: [id number] Name: ANGÉLICA YO Rep #:[id number] 3 : 1955 69 From: Sommer Resendiz MD PCP: Dr. Jacinda Benton MD Status:ADM IN Location: [facility] VQ964-2 Hospitalist Note Patient with unwitnessed mechanical fall, [...] Cosigner Signature (if applicable): cc: ~* Signed [facility] Work Phone: 1(696) 155-551106-03-2025 Radiology Diagnostic study [facility]06-02-2025 Consult note Author Aime Covarrubias [facility] Note Date/Time April 20, 2025 4:08p [facility] Medical Records Department [address] [place] [address] Anesthesia Postop Eval II 04/20/25 1608 MR#: [id number] Acct: [id number] Name: ANGÉLICA YO Rep #:[id number] 0 : 1955 69 From: Aime Covarrubias MD PCP: Dr. Jacinda Benton MD Status:ADM IN Y Race: C Location: [facility] MS305 -1 Anesthesia Postop Eval I Sum Postop Eval Completion status Anesthesia document: Postop Eval 1 completed: Yes Anesthesia Postop Eval I Summary Anesthesia Postop Eval I Summary: Anesthesia Postop Eval I: Assessment Summary Airway patent Yes 04/20/25 13:53 LUSTER APPLICATOR.JDEF Spontaneous unlabored Yes 04/20/25 13:53 LUSTER APPLICATOR.JDEF respirations Mental status Awake 04/20/25 13:53 LUSTER APPLICATOR.JDEF nausea No 04/20/25 13:53 LUSTER APPLICATOR.JDEF Vomiting No 04/20/25 13:53 LUSTER APPLICATOR.JDEF Anesthesia Postop Eval I: Fluid Summary Crystalloid volume administer 500 04/20/25 13:53 LUSTER APPLICATOR.JDEF (ml) Colloids volume administered ( ml) Blood Product volume administered (ml) Total IV fluid infused 500 04/20/25 13:53 LUSTER APPLICATOR.JDEF Anesthesia Postop Eval I: Summary Notes Anesthesia Complication No 04/20/25 13:53 LUSTER APPLICATOR.JDEF Anesthesia Complication Comment: Post-operative progress note Anesthesia: Postop Eval II Evaluation Mental status: Awake Pain Level: 0 nausea: No Vomiting: No Complications Anesthesia Complication: No 04/20/25 1608 <Electronically signed by Aime Covarrubias MD> Date _ Aime Covarrubias MD Cosigner Signature: Date CC: ~ Signed [facility] Work Phone: 1(535) [phone] Consult note Author Meliza Rea [facility] Note Date/Time April 20, 2025 1:53p [facility] Medical Records Department [address] [facility] [place] [address] Anesthesia Postop Eval I 04/20/25 1352 MR#: [id number] Acct: [id number] Name: ANGÉLICA YO Rep #:[id number] 8 : 1955 69 From: Meliza Rea CRNA PCP: Dr. Jacinda Benton MD Status:ADM IN Y Race: C Location: [place] [address] Anesthesia: Postop Eval I Current Vital Signs [...] 04/20/25 1353 <Electronically signed by Meliza mansfield LUSTER APPLICATOR> Date _ Meliza Rea LUSTER APPLICATOR Cosigner Signature: Date CC: ~ Signed [facility] Work Phone: 1(544) 170-426706-02-2025 Consult note Author Aime Covarrubias [facility] Note Date/Time April 20, 2025 1:21p m [facility] Medical Records Department [address] [place] [address] Pre-Anesthesia Evaluation 04/20/25 1313 MR#: [id number] Acct: [id number] Name: ANGÉLICA YO Rep #:[id number] 8 : 1955 69 From: Aime Covarrubias MD PCP: Dr. Jacinda Benton MD Status:ADM IN Y Race: C [...] Procedure(s): EGD 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 - harness brusher: 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 - harness brusher Hx Hospitalization No 04/15/21 11:49 Any Problems [...] take am of surgery PONV PONV - harness brusher: PONV - harness brusher Female HX of Motion Sickness HX of N/V After Surgery Non-Smoker Duration of Surgery greater than 60 minutes Number of Risk Factors PONV Score Height & Weight Height & Weight: Anesthesia: Height & Weight Height 5 ft 5 in 04/19/25 10:28 Weight: 45.7 kg 04/19/25 10:28 Body Mass Index (BMI) 16.7 04/18/25 21:50 Respiratory Assessment Respiratory Assessment - harness brusher: Respiratory Tract Infection Hx - harness brusher Hx Respiratory Tract Infection No 02/24/24 23:50 STOP Sleep Apnea STOP Sleep Apnea - harness brusher: STOP Sleep Apnea - harness brusher Hx Hypertension Yes 04/18/25 21:53 Hx Sleep [...] Tobacco Use History Tobacco Use History - harness brusher: Tobacco Use History - harness brusher Tobacco Use Smoking Status Light Smoker (<10/day) 04/18/25 21:53 Hx Tobacco Use Yes 04/18/25 21:53 Years Smoking Packs Smoked per Day Smoking Cessation Date was within the last 15 years Hx Smoking Cessation Date Hx Smoking Cessation No 04/18/25 21:53 Counseling Hematologic Medial History Hematologic Hx - harness brusher: 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 Hx of Blood Transfusion Yes 04/18/25 21:53 [...] confused, unrespo /Reproduction History /Reproductive History - harness brusher: /Reproductive Hx- harness brusher Hx Now Gestational Age (in weeks): EDC: [...] mls @ 15 mls/hr 04/18/25 21:41 IV .[id number] PRN Saline Flush Sodium Chloride 250 mls @ 15 mls/hr 04/18/25 21:41 IV .[id number] PRN Additional IVPB Infusion Pantoprazole Sodium 40 mg/ 100 mls @ 330 mls/hr 04/18/25 21:57 04/20/25 09:59 Sodium Chloride IV 330 mls/hr Q24 VIMAL Administration Lactated Ringer's 1,000 mls @ 15 mls/hr 04/20/25 13:00 04/20/25 12:59 IV 15 mls/hr .Q48H VIMAL Administration Ipratropium Trevorton 2 spray 04/19/25 07:17 Ipratropium Trevorton 0.06% Nasal [place] NASAL TID PRN allergy symptoms Levothyroxine Sodium [...] (dyspnea on exertion) Atherosclerotic heart disease of [place] coronary artery without angina pectoris Cardiac murmur [...] Stomach morphine AdvReac Nausea Verified 04/18/25 18:19 Hxjviqd-PZP-RgD Reductase AdvReac Nausea Verified 04/18/25 18:19 Inhibitor (Vfwwwda-Lqj-Wvw Reductase Inhibitor) Family History Mother Cancer CAD [...] MD Cosigner Signature: Date CC: ~ Signed [facility] Work Phone: 1(387) 264-115606-02-2025 Progress note Author Kevin Friend [facility] Note Date/Time April 20, 2025 1:19p m [facility] Medical Records Department [address] [place] [address] Progress Note 04/20/25 1318 MR#: [id number] Acct: [id number] Name: CHRISTINANGÉLICA ADELSO Rep #:[id number] 2 : 1955 69 From: Kevin Gonzalez DO PCP: Dr. Jacinda Benton MD Status:ADM IN Location: [place] [address] Progress Note Patient has been n.p.o. for [...] ASA of 3. Visit Charges Inpatient E&M: 67102 Subs Hosp L2 04/20/25 1314 <Electronically signed by Kevin Gonzalez DO> Kevin Gonzalez DO Cosigner Signature (if applicable): CC: ~ Signed [facility] Work Phone: 1(451) [phone] [facility] 04-20-2025 [facility]2025 Progress note Author Roman Mckeon [facility] Note Date/Time April 20, 2025 7:32a m [facility] Medical Records Department [address] [place] [address] Progress Note - Hospitalist 04/20/25 0728 MR#: [id number] Acct: [id number] Name: ANGÉLICA YO ADELSO Rep #:[id number] 9 : 1955 69 From: Roman Mckeon MD PCP: Dr. Jacinda Benton MD Status:ADM IN Location: [place] [address] Reason for Visit Reason for Visit: Diagnoses [...] 74.9 H, Lymph % (Auto) 11.1 L, [place] % (Auto) 11.3 H, Eos % (Auto) [...] pain regimen Charges/Coding Visit Charges Inpatient E&M: 53509 Subs Hosp L2 04/20/25 0732 <Electronically signed by Roman Mckeon MD> Cosigner Signature (if applicable): CC: ~ Signed [facility] Work Phone: 1(712) 755-619306-01-2025 Progress note Author Roman Mckeon [facility] Note Date/Time April 19, 2025 8:12a m [facility] Medical Records Department [address] [place] [address] Progress Note - Hospitalist 04/19/25709 MR#: [id number] Acct: [id number] Name: ANGÉLICA YO Rep #:[id number] 2 : 1955 69 From: Roman Mckeon MD PCP: Dr. Jacinda Benton MD Status:ADM IN Location: [facility] FZ117-1 Reason for Visit Reason for Visit: Diagnoses [...] (Auto) 79.5 H, Lymph % (Auto)9.5 L, Johnston % (Auto) 9.4, Eos % (Auto) 0.5, [...] documentation, 52Minutes Charges/Coding Visit Charges Inpatient E&M: 99406 Subs Hosp 04/19/25 0812 <Electronically signed by Roman Mckeon MD> Cosigner Signature (if applicable): CC: ~ Signed [facility] Work Phone: 1(413) 593-909806-01-2025 History and physical note Author Sachin Murillo [facility] Note Date/Time April 19, 2025 12:52 am [facility] Medical Records Department [address] [place] [address] H&P Exam - Hospitalist 04/18/252126 MR#: [id number] Acct: [id number] Name: ANGÉLICA YO Rep #:[id number] 5 : 1955 69 From: Sachin chan MD PCP: Dr. Jacinda Benton MD Status:ADM IN Location: MS3 QY805-2 HPI - General General Date of Admission: [...] lightheadedness or dizziness, no nausea or vomiting. [facility] Medical History Hypertensive emergency NSTEMI, initial episode of care Emphysema of lung Smoking greater than 30 pack years New onset atrial fibrillation [place] (dyspnea on exertion) Atherosclerotic heart disease of [place] coronary artery without angina pectoris Cardiac murmur [...] Stomach morphine AdvReac Nausea Verified 04/18/25 18:19 Xnifjyu-SUG-WaO Reductase AdvReac Nausea Verified 04/18/25 18:19 Inhibitor (Bujrzsg-Wik-Hxs Reductase Inhibitor) Family History Mother Cancer CAD [...] (Auto) 79.5 H, Lymph % (Auto)9.5 L, Johnston % (Auto) 9.4, Eos % (Auto) 0.5, [...] DVT: SCDs Charges/Coding Visit Charges Inpatient E&M: 30316 Init Hosp L2 04/19/25 0052 <Electronically signed by Sachin Murillo MD> Cosigner Signature (if applicable): CC: Dr. Jacinda Benton MD; Dr. Sachin Murillo MD~ Signed [facility] Work Phone: 1(134) 614-190106-01-2025 Discharge summary Author Jeffy Willoughby [facility] Note Date/Time April 18, 2025 10:46 pm [facility] Medical Records Department [address] [place] [address] Emergency Department Summary 04/18/25 MR#: [id number] Acct: [id number] Name: ANGÉLICA YO Rep #:[id number] 1 : 1955 69 From: Jeffy Willoughby MD PCP: Dr. Jacinda Benton MD Status:ADM IN [facility] H[facility] History of Present Illness Chief Complaint: [...] Prior similar symptoms: No Recent Illness/Hospitalization: Yes [facility] Medical History Hypertensive emergency NSTEMI, initial episode of care Emphysema of lung Smoking greater than 30 pack years New onset atrial fibrillation [place] (dyspnea on exertion) Atherosclerotic heart disease of [place] coronary artery without angina pectoris Cardiac murmur [...] Stomach morphine AdvReac Nausea Verified 04/18/25 18:19 Eubjhui-VZB-VnK Reductase AdvReac Nausea Verified 04/18/25 18:19 Inhibitor (Qtyxirz-Eoz-Vds Reductase Inhibitor) Family History Mother Cancer CAD [...] Labs: Laboratory Results - last 24 hr 0504/18/25 04/18/25 18:36 18:47 19:18 WBC 8.7 RBC 2.97 L Hgb 7.3 L Hct 23.5 L MCV 79.1 L MCH 24.6 L MCHC 31.1 L RDW Std Deviation 50.4 H RDW Coeff of David 17.3 H Plt Count 195 MPV 9.6 Immature Gran % (Auto) 0.500 Neut % (Auto) 79.5 H Lymph % (Auto) 9.5 L Johnston % (Auto) 9.4 Eos % (Auto) 0.5 [...] (Auto) Neut % (Auto) Lymph % (Auto) [place] % (Auto) Eos % (Auto) Baso % [...] follows: Interpretation: Sinus Rhythm (Rate is 68. [place] interval is 102 ms. Cures duration 82 ms. QT duration 456 ms. QTc is prolonged at 484 ms. [place]wood is normal. There is no acute ischemic changes noted.) Management Discussion w/another healthcare provider: Hospitalist (Evening hospitalist was paged. Patient will need admission with further workup. She did not receive blood in the emergency department.) Discharge Plan Dx/Rx/DC Orders Clinical Impression: Acute hypotension, Orthostatic hypotension, Acute on chronic anemia, Microcyticanemia, Signs and symptoms of anemia, Symptomatic anemia, 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 seenon cardiac care unit nurse Disposition Disposition: Acute Care Hospital [facility] Discharge Date/Time: 04/18/25 21:33 What to do if you have Problems For any increased pain, shortness of breath, bleeding, nausea or vomiting, chestpain, or any unexpected problems, contact your Primary Care Provider. Call [facility] ([phone]) or report to the closest Emergency Room. Call 911 if necessary. 04/18/252245 <Electronically signed by Jeffy Willoughby MD> Cosigner Signature (if applicable): CC: Dr. Jacinda Benton MD ~ Signed [facility] Work Phone: 1(117) 792-269105-31-2025 Evaluation note* Diagnosis Onset Date Resolution Status Admit Date Acute on chronic anemia resolved M ay 2024 9:20pm Microcytic anemia resolved March 9:20pm Orthostatic hypotension resolved M ay 2024 9:20pm Signs and symptoms of anemia resolve d April 18, 2025 9:20pm 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 cardiac care unit nurse resolved April 18, 2025 9 :20pm Symptomatic anemia resolved April 182024 9:20pm Anemia acute May 06 2:10pm Constipation acute May 06, 2 025 2:10pm Anemia acute June 03 7:37am DDD (degenerative disc disease), lumbosacral acute June 03, 2025 7:37am Congestive heart failure resolved June 03, 2025 7:37am Symptomatic anemia resolved May 192024 7:37am [facility] Work Phone: 1(606) 100-114405-30-2025 Radiology Diagnostic study note [facility] Imaging Services [address] [place] [address] [place] [address] Acute Abdomen Inc Chest MR#: [id number] Acct: [id number] Name: ANGÉLICA YO Rep #: [id number] 0 : 1955 F 69 From: Garo Bautista MD PCP: Dr. Jacinda Benton MD Status: REG ER Study:Acute Abdomen Inc Chest Date of Exam: 04/17/25 Exam# [id number] Ordering Dr: Kari Haynes DO PROCEDURE: ACUTE [...] Abdomen Inc Chest IMPRESSION: Constipation. Reading Location: [id number] CC: Dr. Jacinda Benton MD; Yasmani Haynes DO ~ Hotel Director: Signed [facility]05-21-2025 History of Present illness Narrative* Lizz Lynn APRN - [place] - 04/08/2025 2:30 PM EDT Visit type: Established Patient Reason for Visit: Follow-up and Multiple Sclerosis (/) Assessment and Plan 1. Multiple sclerosis (HCC) 2. Dysphasia Subjective HPI: Patient phoned in 3 days ago stating MS flare - affecting speech, swallowing, and VOSS. Went to [place] ED about 1 week ago; according to [...] typical MS symptoms Received CT scan at [place] that she states was normal REVIEW- MS- [...] TSH VITAMIN B12: No results found for: [id number] No results found for: PHENYTOIN, PHENOBARB, VALPROATE, CBMZ No components found for: TOPIRA @RESULTINGLABINFO@ No results found for: LEVETIRACETA, FERRITIN, CRP, DENNIS, ANCA No results found for: CHRISTIANO, IMMUNOGLOBUL, OLIGOBANDS No results found for: CSI00SX, HEPCAB No results found for: CRP, ANATITER, ANCA FERRITIN: No results found for: FERRITIN ---- ECG 12 lead SINUS BRADYCARDIA PROBABLE LEFT ATRIAL ABNORMALITY No previous ECG available for comparison Electronically Signed On 04-05-2023 7:42:10 EDT by Juvenal Benton @[facility]@ IMPRESSION and PLAN: Problem List Items Addressed [...] family history on file. documented in this [facility]05-21-2025 Instructions* Patient Instructions* ANTWON Harrington CNP - 04/08/2025 2:30 PM EDT Please call [place] [phone] to schedule the MRI brain before 05/03/25 - this is when the authorization for the MRI expires documented in this [facility]05-15-2025 Radiology Diagnostic study [facility]05-15-2025 Discharge summary Author Nuno Grider [facility] Note Date/Time April 02, 2025 11:43 pm [facility] Medical Records Department [address] [place] [address] Emergency Department Summary 04/02/25 MR#: [id number] Acct: [id number] Name: ANGÉLICA YO Rep #:[id number] 9 : 1955 69 From: Nuno Grider MD PCP: Dr. Jacinda Benton MD Status:[facility] ER Location: ED HPI History of Present [...] states that her primary care provider, Dr. Jacinda Benton, put her on oral prednisone for [...] denies any exacerbating or alleviating factors. [facility] Medical History Hypertensive emergency NSTEMI, initial episode of care Emphysema of lung Smoking greater than 30 pack years New onset atrial fibrillation [place] (dyspnea on exertion) Atherosclerotic heart disease of [place] coronary artery without angina pectoris Cardiac murmur [...] Stomach morphine AdvReac Nausea Verified 04/02/25 19:26 Hlcdses-GNP-OfP Reductase AdvReac Nausea Verified 04/02/25 19:26 Inhibitor (Kiitibw-Hlr-Mjx Reductase Inhibitor) Family History Mother Cancer CAD [...] by him. Once again, Idiscussed with her rwan-ad-vppc if she would like to be observed, [...] 80.4 H Lymph % (Auto) 10.5 L Johnston % (Auto) 6.6 Eos % (Auto) 1.5 [...] Q12H Qty: 180 3RF Primary Care Provider: Jacinda Benton Referrals: Jacinda Benton MD [Primary Care Provider] - 1-2 Days if not improving Activity Restrictions/Additional Instructions: Follow-up with your neurologist within the next 1 to 2 days. Return with increased weakness, fever, new or worsening symptoms. Print Language: Surinamese Disposition Disposition: Home, Self Care What to do if you have Problems For any increased pain, shortness of breath, bleeding, nausea or vomiting, chestpain, or any unexpected problems, contact your Primary Care Provider. Call [facility] ([phone]) or report to the closest Emergency Room. Call 911 if necessary. 04/02/252342 <Electronically signed by Nuno Grider MD> Cosigner Signature (if applicable): CC: Dr. Jacinda Benton MD ~ Signed [facility] Work Phone: 1(524) 989-880505-15-2025 Hospital Discharge instructions Additional Instructions Follow-up with your neurologist within the next 1 to 2 days. Return with increased weakness, fever, new or worsening symptoms.[facility] Work Phone: 1(757) 841-227604-21-2025 Telephone encounter Note* Telephone Encounter - Maeve Fargo - 03/09/2025 11:40 AM EDT Order re faxed to [phone] [facility]. [place] [id number] Miscellaneous Notes* Telephone Encounter - Maeve Willoughbyington - 03/09/2025 11:40 AM EDT Order re faxed to [phone] [facility]. * Telephone Encounter - Maria Antonia Kelly - 03/09/2025 11:11 AM EDT Name of caller: Kody Contact phone number: [phone] Relationship to Patient: [facility] Provider: A[place]A Lynn Practice: [facility] [place] Chief Complaint/Reason for Call: Kody called in requesting patient's MRI order be faxed over to them at fax # [phone]. Please be advised Best time of day caller can be reached: Any Patient advised that office/PCP has 24-48 business hours to return their call: N/A documented in this encounterSThe Christ [id number] Telephone encounter Note* Telephone Encounter - Maria Antonia Leticia - 03/09/2025 11:11 AM EDT Name of caller: Kody Contact phone number: [phone] Relationship to Patient: [facility] Provider: AUR[place]A Lynn Practice: [facility] [place] Chief Complaint/Reason for Call: Kody called in requesting patient's MRI order be faxed over to them at fax # [phone]. Please be advised Best time of day caller can be reached: Any Patient advised that office/PCP has 24-48 business hours to return their call: N/A [id number] History of Present illness Narrative* ANTWON Harrington CNP - 03/04/2025 10:30 AM EDT Visit [...] TSH VITAMIN B12: No results found for: [id number] No results found for: PHENYTOIN, PHENOBARB, VALPROATE, CBMZ No components found for: TOPIRA @RESULTINGLABINFO@ No results found for: LEVETIRACETA, FERRITIN, CRP, DENNIS, ANCA No results found for: CHRISTIANO, IMMUNOGLOBUL, OLIGOBANDS No results found for: SWV79OA, HEPCAB No results found for: CRP, ANATITER, [...] EEG, and labs RTO 3 mos I, Lizz Lynn APRN - [employer], furnish ongoing care related to Angélica Yo single, serious andcomplex condition(s) multiple sclerosis. I assume responsibility for the patient's ongoing medical care of this condition. ANTWON Harrington CNP Electronically signed by ANTWON Harrington CNP on @TDNR@ at @NOWNR@ documented in this [facility]04-04-2025 Evaluation note* Diagnosis Onset [...] 18, 2025 9:20pm 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 cardiac care unit nurse resolved April 18, 2025 9 :20pm Symptomatic anemia resolved April 182024 9:20pm Anemia acute May 06 2:10pm Constipation acute May 06, 025 2:10pm [facility] Work Phone: [phone]) 985-831404-04-2025 Evaluation note* Diagnosis Onset Date Resolution Status [...] 18, 2025 9:20pm 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 cardiac care unit nurse resolved April 18, 2025 9 :20pm Symptomatic anemia resolved April 182024 9:20pm Anemia acute May 06 2:10pm Constipation acute May 06, 025 2:10pm Anemia acute June 03 7:37am Congestive heart failure acute June 03, 2025 7:37am DDD (degenerative disc disease), lumbosacral acute June 03, 2025 7:37am Symptomatic anemia resolved May 192024 7:37am [facility] Work Phone: 1(456) 450-201002-25-[address] 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 January [...] 18, 2025 9:20pm 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 cardiac care unit nurse resolved April 18, 2025 9 :20pm Symptomatic anemia resolved April 182024 9:20pm [facility] Work Phone: 1(402) 556-928602-05-2025 Evaluation note* Diagnosis Onset Date Resolution Status Admit Date Uxfki-4-fvesfigpjjq deficien cy carrier acute December 24 1:52pm Hypoxemia chronic December 24, 2024 1:52pm Emphysema of lung inactive 2024 1:52pm Nicotine dependence, cigarettes, uncomplicated inactive 2024 1:52pm Smoking greater than 30 pack years inactive December 24 1:52pm 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 January [...] 18, 2025 9:20pm 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 cardiac care unit nurse acute April 18, 2025 9 :20pm Symptomatic anemia acute April 182024 9:20pm Acute on chronic anemia chronic M ay 2024 9:20pm [facility] Work Phone: 1(513) 982-147301-31-2025 Evaluation note* Diagnosis Onset Date Resolution Status Admit Date Mitral stenosis acute November 212024 1:16pm Bilateral carotid artery stenosis chronic December 19 1:16pm Essential (primary) hypertension inactive December 19 1:16pm PAF (paroxysmal atrial fibrillation) inactive December 19 1:16pm Peripheral vascular occlusiv e disease inactive December 19 1:16pm Vfbpa-0-brdwtftgteb deficien cy carrier acute December 24 1:52pm Hypoxemia chronic December 24, 2024 1:52pm Emphysema of lung inactive 2024 1:52pm Nicotine dependence, cigarettes, uncomplicated inactive 2024 1:52pm Smoking greater than 30 pack years inactive December 24 1:52pm 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 January [...] e disease inactive February 20, 2025 1:14pm [facility] Work Phone: 1(800) 245-928201-31-2025 Evaluation note* Diagnosis Onset Date Resolution Status Admit Date Mitral stenosis acute November 212024 1:16pm Bilateral carotid artery stenosis chronic December 19 1:16pm Essential (primary) hypertension inactive December 19 1:16pm PAF (paroxysmal atrial fibrillation) inactive December 19 1:16pm Peripheral vascular occlusiv e disease inactive December 19 1:16pm Zaezg-6-nmjieglckyq deficien cy carrier acute December 24 1:52pm Hypoxemia chronic December 24, 2024 1:52pm Emphysema of lung inactive 2024 1:52pm Nicotine dependence, cigarettes, uncomplicated inactive 2024 1:52pm Smoking greater than 30 pack years inactive December 24 1:52pm 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 January [...] 18, 2025 9:19pm 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 cardiac care unit nurse acute April 18, 2025 9 :19pm Symptomatic anemia acute April 182024 9:19pm Acute on chronic anemia chronic M ay 2024 9:19pm [facility] Work Phone: 1(246) 263-463201-23-[address] [facility]01-21-2025 Evaluation note* Diagnosis Onset Date Resolution Status Admit Date Chest pain inactive December 09, 2024 2:32pm Chronic low back pain inactive Nov 2:32pm Diastolic hypertension inactive [facility]2024 2:32pm Elevated troponin inactive December 09, 2024 2:32pm Nicotine dependence, cigarettes, uncomplicated inactive 2024 2:32pm Mitral stenosis acute November 212024 1:16pm Bilateral carotid artery stenosis chronic December 19 1:16pm Essential (primary) hypertension inactive December 19 1:16pm PAF (paroxysmal atrial fibrillation) inactive December 19 1:16pm Peripheral vascular occlusiv e disease inactive December 19 1:16pm Pmbtt-5-zcqbdmnxxlz deficien cy carrier acute December 24 1:52pm Hypoxemia chronic December 24, 2024 1:52pm Emphysema of lung inactive 2024 1:52pm Nicotine dependence, cigarettes, uncomplicated inactive 2024 1:52pm Smoking greater than 30 pack years inactive December 24 1:52pm 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 January [...] e disease inactive February 20, 2025 1:14pm [facility] Work Phone: 1(864) 971-235001-02-2025 Telephone encounter Note* Telephone Encounter - Linda [...] tab): 09/15/24 Updated/Validated preferred pharmacy: [id number] Patient instructed to contact the pharmacy prior to picking up the medication: Yes [id number] Miscellaneous Notes* Telephone Encounter - Linda Glynn [...] tab): 09/15/24 Updated/Validated preferred pharmacy: [id number] - [address] Patient instructed to contact the pharmacy prior to picking up the medication: Yes * Telephone Encounter - Nallely Zaragoza MA - 11/20/2024 2:22 PM EST Last ov-12/14/23 Next ov- N/A documented in this encounterSThe Christ HospitalSilfju85-79-1386 Telephone encounter Note* Telephone Encounter - Nallely Zaragoza MA - 11/20/2024 2:22 PM EST Last ov-12/14/23 Next ov- N/A [facility]fr[facility]69-19-2150 Telephone encounter Note* Telephone Encounter - Yanely Kwon MA - 09/15/2024 6:47 AM EDT Last ov- 12/14/23 Next ov- n/a [facility]zmxea09-33-3766 Miscellaneous Notes* Telephone Encounter - Yanely Kwon MA - 09/15/2024 6:47 AM EDT Last ov- 12/14/23 Next ov- n/a documented in this [facility]04-08-2024 Discharge summary Author Eva Mortensen [facility] February 25, 2024 4:04pm Note Date/Time February 25, 2024 3:34 pm [facility] Medical Records Department [address] [place] [address] Discharge Summary 02/25/24 1529 MR#: [id number] Acct: [id number] Name: ANGÉLICA YO Rep #:[id number] 0 : 1955 68 From: Eva Mortensen DO PCP: Dr. Jacinda Benton MD Status:ADM IN Location: [place] [id number] Providers Date of Admission: 02/19/24 Date of Discharge: 02/25/24 Primary Care Physician: Dr. Jacinda Benton MD Consultations 02/19/24 16:58 Consult: Gastroenterology Routine Consulting Provider: [facility] Reason for Consult: GI bleed EMERGENT [...] who presented to the emergency department at [facility] on 02/19/2024 with lightheadedness. She does [...] within the next month or assoon as DrHero Friend schedule allows. Her hemoglobin at the time [...] (Auto) 68.4, Lymph % (Auto) 16.3 L, Johnston % (Auto) 11.3 H, Eos % (Auto) [...] Attending Provider: Eva Mortensen Primary Care Provider: Jacinda Benton Consulting Providers: Roman Mckeon Instructions Additional [...] - Active Staff] - 08/21/24 11:15 am Jacinda Benton MD [Primary Care Provider] - 02/29/24 (As previously scheduled. ) Kevin Gonzalez DO [Med Staff - Active Staff] - 03/26/24 8:00 am Disposition Disposition (needs filled in before D/C Order can be placed): Home Health Service Charges/Coding Visit Charges Inpatient E&M: 22205 Disch Hosp >30min 02/25/24 1557 <Electronically signed by Eva Mortensen DO> Cosigner Signature (if applicable): CC: Dr. Jorge Hurtado DO; Dr. Jacinda Benton MD; Dr. Eva Mortensen DO; Kevin [...] applicable): cc: Dr. Jorge Hurtado DO; Dr. Jacinda Benton MD; Dr. Eva Mortensen DO; Kevin Gonzalez DO ~* Signed [facility] Work Phone: 1(654) 809-555704-08-2024 [facility] 02-25-2024 [facility]04-07-2024 Progress note Author Roman Mckeon [facility] February 24, 2024 8:37am Note Date/Time February 24, 2024 8:07 am [facility] Medical Records Department [address] [place] [address] Progress Note - Hospitalist 02/24/24 0806 MR#: [id number] Acct: [id number] Name: ANGÉLICA YO Rep #:[id number] 6 : 1955 68 From: Roman Mckeon MD PCP: Dr. Jacinda Benton MD Status:ADM IN Location: [place] [address] Reason for Visit Reason for Visit: Diagnoses [...] (Auto) 69.1, Lymph % (Auto) 15.5 L, Johnston % (Auto) 11.4 H, Eos % (Auto) [...] (Auto) 79.0 H, Lymph % (Auto)8.2 L, Johnston % (Auto) 10.2 H, Eos % (Auto) [...] 35 Minutes Charges/Coding Visit Charges Inpatient E&M: 87881 Subs Hosp L2 02/24/24 0837 <Electronically signed by Roman Mckeon MD> Cosigner Signature (if applicable): CC: ~ Signed [facility] Work Phone: 1(944) 986-362504-06-2024 Progress note Author Kevin Gonzalez [facility] February 23, 2024 4:20pm Note Date/Time February 23, 2024 4:20 pm [facility] Medical Records Department [address] [place] [address] Progress Note - GI 02/23/24 1619 MR#: [id number] Acct: [id number] Name: ANGÉLICA YO Rep #:[id number] : 1955 68 From: Kevin Gonzalez DO PCP: Dr. Jacinda Benton MD Status:ADM IN Location: [place] [address] Subjective Subjective Patient does not have any [...] (Auto) 69.1, Lymph % (Auto) 15.5 L, Johnston % (Auto) 11.4 H, Eos % (Auto) [...] on Sunday. Charges/Coding Visit Charges Inpatient E&M: 01851 Subs Hosp L3 02/23/24 1620 <Electronically signed by Kevin Friend DO> Cosigner Signature (if applicable): CC: ~ Signed [facility] Work Phone: 1(446) 896-700504-06-2024 Progress note Author Roman Mckeon [facility] February 23, 2024 9:04am Note Date/Time February 23, 2024 8:20 am [facility] Medical Records Department [address] [facility] [place] [address] Progress Note - Hospitalist 02/23/24819 MR#: [id number] Acct: [id number] Name: ANGÉLICA YO Rep #:[id number] 2 : 1955 68 From: Roman Mckeon MD PCP: Dr. Jacinda Benton MD Status:ADM IN Location: [place] [address] Reason for Visit Reason for Visit: Diagnoses [...] 38 Minutes Charges/Coding Visit Charges Inpatient E&M: 78325 Subs Hosp L2 02/23/24 0904 <Electronically signed by Roman Mckeon MD> Cosigner Signature (if applicable): CC: ~ Signed [facility] Work Phone: 1(883) 125-622504-05-2024 Progress note Author Kevin Friend [facility] February 22, 2024 5:55pm Note Date/Time February 22, 2024 5:55 pm [facility] Medical Records Department [address] [place] [address] Progress Note - GI 02/22/24 1753 MR#: [id number] Acct: [id number] Name: ANGÉLICA YO Rep #:[id number] 8 : 1955 68 From: Kevin Friend DO PCP: Dr. Jacinda Benton MD Status:ADM IN Location: [place] [address] Subjective Subjective Patient is still very lethargic [...] (Auto) 68.8, Lymph % (Auto) 14.2 L, Johnston % (Auto) 12.5 H, Eos % (Auto) [...] and lethargy. Charges/Coding Visit Charges Inpatient E&M: 36670 Subs Hosp L3 02/22/24 1751 <Electronically signed by Kevin Friend DO> Cosigner Signature (if applicable): CC: ~ Signed [facility] Work Phone: 1(814) 400-951004-05-2024 Progress note Author Roman Mckeon [facility] February 22, 2024 9:50am Note Date/Time February 22, 2024 7:36 am [facility] Medical Records Department [address] [place] [address] Progress Note - Hospitalist 02/22/24 0736 MR#: [id number] Acct: [id number] Name: ANGÉLICA YO Rep #:[id number] 0 : 1955 68 From: Roman Mckeon MD PCP: Dr. Jacinda Benton MD Status:ADM IN Location: [place] [address] Reason for Visit Reason for Visit: Diagnoses [...] 52 Minutes Charges/Coding Visit Charges Inpatient E&M: 93646 [email or web address]] Hosp 02/22/24 1680 <Electronically signed by Roman Mckeon MD> Cosigner Signature (if applicable): CC: ~ Signed [facility] Work Phone: 1(112) 215-305804-04-2024 Progress note Author Kevin Friend [facility] February 21, 2024 5:17pm Note Date/Time February 21, 2024 5:17 pm [facility] Medical Records Department [address] [place] [address] Progress Note - GI 02/21/24 1710 MR#: [id number] Acct: [id number] Name: ANGÉLICA YO Rep #:[id number] 8 : 1955 68 From: Kevin Gonzalez DO PCP: Dr. Jacinda Benton MD Status:ADM IN Location: [place] [address] Subjective Subjective She underwent an upper endoscopy [...] or outpatient. Charges/Coding Visit Charges Inpatient E&M: 57843 Subs Hosp L3 02/21/24 5923 <Electronically signed by Kevin Friend DO> Cosigner Signature (if applicable): CC: ~ Signed [facility] Work Phone: 1(844) 375-268304-04-2024 Progress note Author Roman Mckeon [facility] February 21, 2024 11:21am Note Date/Time February 21, 2024 10:0 5am [facility] Medical Records Department [address] [place] [address] Progress Note - Hospitalist 02/21/24 1002 MR#: [id number] Acct: [id number] Name: ANGÉLICA YO Rep #:[id number] 4 : 1955 68 From: Roman Mckeon MD PCP: Dr. Jacinda Benton MD Status:ADM IN Location: [place] [address] Reason for Visit Reason for Visit: Diagnoses [...] 50 Minutes Charges/Coding Visit Charges Inpatient E&M: 13867 Subs Hosp L3 02/21/24 1121 <Electronically signed by Roman Mckeon MD> Cosigner Signature (if applicable): CC: ~ Signed [facility] Work Phone: 1(207) 270-283004-03-2024 Progress note Author Roman Mckeon [facility] February 20, 2024 11:46am Note Date/Time February 20, 2024 10:0 8am [facility] Medical Records Department [address] [place] [address] Progress Note - Hospitalist 02/20/24 1005 MR#: [id number] Acct: [id number] Name: ANGÉLICA YO Rep #:[id number] 6 : 1955 68 From: Roman Mckeon MD PCP: Dr. Jacinda Benton MD Status:ADM IN Location: [place] [address] Reason for Visit Reason for Visit: Diagnoses [...] 73.5 H, Lymph % (Auto) 14.5 L, Johnston % (Auto) 8.5, Eos % (Auto) 2.6, [...] 71.0 H, Lymph % (Auto) 14.4 L, Johnston % (Auto) 11.1 H, Eos % (Auto) [...] 50 Minutes Charges/Coding Visit Charges Inpatient E&M: 79035 Subs Hosp L3 02/20/24 1146 <Electronically signed by Roman Mckeon MD> Cosigner Signature (if applicable): CC: ~ Signed [facility] Work Phone: 1(871) 526-416904-03-2024 [facility] 02-20-2024 [facility]2024 Consult note Author Kevin Gonzalez [facility] February 19, 2024 7:12pm Note Date/Time February 19, 2024 7:09 pm [facility] Medical Records Department [address] [place] [address] Consultation - GI 02/19/24 1908 MR#: [id number] Acct: [id number] Name: ANGÉLICA YO Rep #:[id number] 1 : 1955 68 From: Kevin Gonzalez DO PCP: Dr. Jacinda Benton MD Status:ADM IN Location: [place] [id number] HPI Consult Data Date of Consult: [...] fell on Easter in the driveway onto [facility]. She did not hit her head. She denies any recent hospitalization or travel. Imaging of the chest displayed : right lower lobe infiltrate with small right pleural effusion with mild degree of vascular congestion in the right hemithorax. In the ED she was discovered to have a hemoglobin of 6.6. I was consulted for acute onset anemia [facility] Medical History Angina pectoris [...] Stomach morphine AdvReac Nausea Verified 02/19/24 10:57 Jdwlcfe-Yvi-Mgr Reductase AdvReac Nausea Verified 02/19/24 10:57 Inhibitor [...] left-sided carotid endarterectomy History of partial thyroidectomy (01/12/06) History of right-sided carotid endarterectomy S/P coil [...] 73.5 H, Lymph % (Auto) 14.5 L, Johnston % (Auto) 8.5, Eos % (Auto) 2.6, [...] of 3. Charges/Coding Visit Charges Inpatient E&M: 04577 Init Hosp L3 02/19/241911 <Electronically signed by Kevin Friend DO> Cosigner Signature (if applicable): CC: Dr. Jacinda Benton MD~ Signed [facility] Work Phone: 1(898) 754-770604-02-2024 History and physical note Author Roman Mckeon [facility] February 19, 2024 3:25pm Note Date/Time February 19, 2024 2:26 pm [facility] Medical Records Department [address] [place] [address] H&P Exam - Hospitalist 02/19/24 1426 MR#: [id number] Acct: [id number] Name: ANGÉLICA YO Rep #:[id number] 0 : 1955 68 From: Roman Mckeon MD PCP: Dr. Jacinda Benton MD Status:REG ER Location: ED HPI [...] Admitted to monitored bed for further management [facility] Medical History Angina pectoris [...] Stomach morphine AdvReac Nausea Verified 02/19/24 10:57 Toefvkd-HQF-TmE Reductase AdvReac Nausea Verified 02/19/24 10:57 Inhibitor [Gzkwnvd-Lah-Rop Reductase Inhibitor] Family History Mother Cancer CAD [...] 73.5 H, Lymph % (Auto) 14.5 L, Johnston % (Auto) 8.5, Eos % (Auto) 2.6, [...] 18 minutes. Charges/Coding Visit Charges Inpatient E&M: 77817 Init Hosp L3 Procedures Hospitalists Procedures: 41167 Advncd Care Plan 30 Min 02/19/24 3325 <Electronically signed by Roman Mckeon MD> Cosigner Signature (if applicable): CC: Dr. Roman Mckeon MD; Dr. Jacinda Benton MD~ Signed [facility] Work Phone: 1(429) 837-296404-02-2024 Discharge summary Author Jeffy Willoughby [facility] February 19, 2024 2:59pm Note Date/Time February 19, 2024 12:1 5pm [facility] Medical Records Department [address] [place] [address] Emergency Department Summary 02/19/24 MR#: [id number] Acct: [id number] Name: ANGÉLICA YO Rep #:[id number] 6 : 1955 68 From: Jeffy Willoughby MD PCP: Dr. Jacinda Benton MD Status:REG ER Location: ED ADDENDUM by Dr. Jeffy Willoughby MD on 02/19/24 at 1459 EKG reveals atrial fibrillation with a ventricular rate 87. QRS duration 84 ms. QT duration 414 ms. Garwood is normal. QT is prolonged. 02/19/24 1459<Electronically signed by Jeffy Willoughby MD> Cosigner Signature (if applicable): 02/19/24 1346 <Electronically signed by Bernice Warren RN> cc: Dr. Jacinda Benton MD ~* Signed HPI <Bernice Warren [...] Warren RN - Last Filed: 02/19/24 13:46> [facility] Medical History Angina pectoris [...] Stomach morphine AdvReac Nausea Verified 02/19/24 10:57 Fgudrzg-IJP-JzT Reductase AdvReac Nausea Verified 02/19/24 10:57 Inhibitor [Ydrntca-Wuw-Isp Reductase Inhibitor] Family History Mother Cancer CAD [...] Warren RN - Last Filed: 02/19/24 13:46> [facility] Narrative Medical decision making narrative: Patient placed on cardiac care unit nurse. IV line initiated. Labwork obtained to evaluate [...] 73.5 H Lymph % (Auto) 14.5 L Johnston % (Auto) 8.5 Eos % (Auto) 2.6 [...] in the right hemithorax. Electronically Signed: Jovon Freiats MD at 12:50 EDT , EKG Initial [...] in both arms to rule out dissection. Qaltv-io-zjvx glucose was obtained to rule out hypoglycemia. [...] Willoughby MD - Last Filed: 02/19/24 14:39> [facility] MDM Narrative Medical decision making narrative: Patient placed on cardiac care unit nurse. IV line initiated. Labwork obtained to evaluate [...] 73.5 H Lymph % (Auto) 14.5 L Johnston % (Auto) 8.5 Eos % (Auto) 2.6 [...] for hypertension and pneumonia), Discussing w/Patient &/or Family/Architectural Representative, Discussing w/Consultants (Spoke with Dr. Chamorro who referred patient to Dr. Roman Mckeon. Patient was accepted.) and Arranging Admission or Transfer Discharge Plan Dx/Rx/DC Orders Clinical Impression: Acute hypotension, Essential (primary) hypertension, Atrial fibrillation, Community acquired pneumonia, Atypical chest pain, Signs and symptoms of anemia,Symptomatic anemia, Peripheral vascular occlusive disease Disposition Disposition: Acute Care Hospital [facility] What to do if you have Problems For any increased pain, shortness of breath, bleeding, nausea or vomiting, chestpain, or any unexpected problems, contact your Primary Care Provider. Call [facility] ([phone]) or report to the closest Emergency Room. Call 911 if necessary. 02/19/24 1439 <Electronically signed by Jeffy Willoughby MD> Cosigner Signature (if applicable): 02/19/24 1346 <Electronically signed by Bernice Warren RN> CC: Dr. Jacinda Benton MD ~ Signed [facility] Work Phone: 1(550) 822-481404-02-2024 Discharge summary Author Jeffy Willoughby [facility] February 19, 2024 2:59pm Note Date/Time February 19, 2024 12:1 5pm [facility] Medical Records Department [address] [place] [address] Emergency Department Summary 02/19/24 MR#: [id number] Acct: [id number] Name: ANGÉLICA YO Rep #:[id number] 6 : 1955 68 From: Jeffy Willoughby MD PCP: Dr. Jacinda Benton MD Status:[facility] ER Location: ED ADDENDUM by Dr. Jeffy Willoughby MD on 02/19/24 at 1459 EKG reveals atrial fibrillation with a ventricular rate 87. QRS duration 84 ms. QT duration 414 ms. Garwood is normal. QT is prolonged. 02/19/24 1459<Electronically signed by Jeffy Willoughby MD> Cosigner Signature (if applicable): 02/19/24 1346 <Electronically signed by Bernice Warren RN> cc: Dr. Jacinda Benton MD ~* Signed HPI <Bernice Warren [...] Stomach morphine AdvReac Nausea Verified 02/19/24 10:57 Gbtsjip-YOS-RrW Reductase AdvReac Nausea Verified 02/19/24 10:57 Inhibitor [Vzmtvxp-Gha-Avj Reductase Inhibitor] Family History Mother Cancer CAD [...] Warren RN - Last Filed: 02/19/24 13:46> [facility] MDM Narrative Medical decision making narrative: Patient placed on cardiac care unit nurse. IV line initiated. Labwork obtained to evaluate [...] 73.5 H Lymph % (Auto) 14.5 L Johnston % (Auto) 8.5 Eos % (Auto) 2.6 [...] in both arms to rule out dissection. Mfmil-lc-tadc glucose was obtained to rule out hypoglycemia. [...] Medical decision making narrative: Patient placed on cardiac care unit nurse. IV line initiated. Labwork obtained to evaluate [...] 73.5 H Lymph % (Auto) 14.5 L Johnston % (Auto) 8.5 Eos % (Auto) 2.6 [...] for hypertension and pneumonia), Discussing w/Patient &/or Family/Architectural Representative, Discussing w/Consultants (Spoke with Dr. Chamorro who referred patient to Dr. Roman Mckeon. Patient was accepted.) and Arranging Admission or Transfer Discharge Plan Dx/Rx/DC Orders Clinical Impression: Acute hypotension, Essential (primary) hypertension, Atrial fibrillation, Community acquired pneumonia, Atypical chest pain, Signs and symptoms of anemia,Symptomatic anemia, Peripheral vascular occlusive disease Disposition Disposition: Acute Care Hospital [facility] What to do if you have Problems For any increased pain, shortness of breath, bleeding, nausea or vomiting, chestpain, or any unexpected problems, contact your Primary Care Provider. Call [facility] ([phone]) or report to the closest Emergency Room. Call 911 if necessary. 02/19/24 1439 <Electronically signed by Jeffy Willoughby MD> Cosigner Signature (if applicable): 02/19/24 1346 <Electronically signed by Bernice Warren RN> CC: Dr. Jacinda Benton MD ~ Signed [facility] Work Phone: 1(688) 802-809704-02-2024 History and physical note Author Roman Mckeon [facility] February 19, 2024 3:25pm Note Date/Time February 19, 2024 2:26 pm [facility] Medical Records Department [address] [place] [address] H&P Exam - Hospitalist 02/19/24 1426 MR#: [id number] Acct: [id number] Name: ANGÉLICA YO Rep #:[id number] 0 : 1955 68 From: Roman Mckeon MD PCP: Dr. Jacinda Benton MD Status:REG ER Location: ED HPI [...] Admitted to monitored bed for further management [facility] Medical History Angina pectoris [...] Stomach morphine AdvReac Nausea Verified 02/19/24 10:57 Tywhilj-XOA-PjQ Reductase AdvReac Nausea Verified 02/19/24 10:57 Inhibitor [Wpawnco-Oya-Hnp Reductase Inhibitor] Family History Mother Cancer CAD [...] 73.5 H, Lymph % (Auto) 14.5 L, Johnston % (Auto) 8.5, Eos % (Auto) 2.6, [...] 18 minutes. Charges/Coding Visit Charges Inpatient E&M: 23029 Init Hosp L3 Procedures Hospitalists Procedures: 81192 Advncd Care Plan 30 Min 02/19/24 1125 <Electronically signed by Roman Mckeon MD> Cosigner Signature (if applicable): CC: Dr. Roman cMkeon MD; Dr. Jacinda Benton MD~ Signed [facility] Work Phone: 1(919) 836-281003-25-2024 Telephone encounter Note* Telephone Encounter - Nicole Mansfieldubbs - 02/11/2024 10:34 AM EDT Medication name: [...] picking [facility] the medication[id number] Miscellaneous Notes* Telephone Encounter - Nicole Cota [...] up the medication: N/A documented in this [facility]02-23-2024 Discharge summary Author Jori Garcia [facility] January 11, 2024 8:14am Note Date/Time January 11, 2024 2:45am [facility] Medical Records Department [address] [place] [address] Emergency Department Summary 01/11/24 MR#: [id number] Acct: [id number] Name: ANGÉLICA YO Rep #:[id number] 4 : 1955 68 From: Jori Garcia MD PCP: Dr. Jacinda Benton MD Status:REG ER Location: ED HPI [...] in her ears, following with neurology at [facility], and has been having dizziness [...] has osteoporosis. Sheis on no anticoagulants. [facility] Medical History Angina pectoris Bilateral carotid artery [...] Stomach morphine AdvReac Nausea Verified 01/11/24 02:15 Capbuwx-CJE-YsI Reductase AdvReac Nausea Verified 01/11/24 02:15 Inhibitor [Hlhofsx-Wjp-Csm Reductase Inhibitor] Family History Mother Cancer CAD [...] motor deficits and no sensory deficits noted [place] Coma Scale: document GCS findings Spontaneous Obeys [...] (prior Afib thought to have caused CVA/TIA, EDB1OB1-GXRv score of 4, prescribed Eliquis but patient [...] 85.1 H Lymph % (Auto) 5.2 L Johnston % (Auto) 7.7 Eos % (Auto) 0.2 [...] Clarity Clear Urine pH 7.0 Ur Specific [place] 1.010 Urine Protein Negative Urine Glucose (UA) [...] (Auto) Neut % (Auto) Lymph % (Auto) Johnston % (Auto) Eos % (Auto) Baso % (Auto) Absolute Neuts (auto) Absolute Lymphs (auto) Nucleated RBC % Sodium Potassium Chloride Carbon Dioxide Anion Gap BUN Creatinine Estim Creat Clear Calc Est GFR (MDRD) Af Amer Est GFR (MDRD) Non-Af BUN/Creatinine Ratio Glucose Lactic Acid Calcium Magnesium Troponin I High Sens 17 Urine Color Urine Clarity Urine pH Ur Specific [place] Urine Protein Urine Glucose (UA) Urine Ketones [...] BID Qty: 30 11RF Primary Care Provider: Jacinda Benton Referrals: Tye Barnett MD [Med Staff - Active Staff] - As soon as possible Jacinda Benton MD [Primary Care Provider] - Betsey [...] your Primary Care Provider. Call [facility] ([phone]) or report to the closest Emergency Room. Call 911 if necessary. 01/11/24 0814 <Electronically signed by Jori Garcia MD> Cosigner Signature (if applicable): CC: Dr. Tye Barnett MD; Dr. Jacinda Benton MD; MARIANA Candelario ~ Signed [facility] Work Phone: 1(930) 997-834101-26-2024 History of Present illness Narrative* Lizz Lynn, ANTWON - [employer] FI[employer] - 12/14/2023 2:00 PM EST Visit type: [...] after hospital: Pt states she presented to [facility] with dizziness, feeling unbalanced, high BP [...] unsure how much solumedrol she received. From [place] records: CT brain 12/02/23: no acute intracranial [...] TSH VITAMIN B12: No results found for: PKRWTKHW60 No results found for: PHENYTOIN, PHENOBARB, VALPROATE, CBMZ No components found for: TOPIRA @RESULTINGLABINFO@ No results found for: LEVETIRACETA, FERRITIN, CRP, DENNIS, ANCA No results found for: CHRISTIANO, IMMUNOGLOBUL, OLIGOBANDS No results found for: TKT23OC, HEPCAB No results found for: CRP, ANATITER, [...] 1 tablet on day 5 MRI from [facility] does not show reason for this; exam consistent with vertigo; will order vestibular theapy Vestibular therapy Referral to [place] [facility]. No problem-specific Assessment & Plan notes found for this encounter. ANTWON Harrington CNP I spent 60 minutes caring for this patient today, reviewing labs, records, seeing the patient, documenting in the record and arranging for studies. Electronically signed by ANTWON Harrington CNP on @TDNR@ at @NOWNR@ documented in this [facility]01-26-2024 Instructions* Patient Instructions* ANTWON Harrington CNP - 12/14/2023 2:00 PM EST Prednisone 20mg: take 5 tablets on day 1, 4 tablets on day 2, 3 tablets on day 3, 2 tablets on day 4, and 1 tablet on day 5 Vestibular therapy at [facility] [phone] [facility] for eye exam: [phone] documented in this [facility]01-19-2024 Discharge summary Author Sachin Murillo [facility] December 07, 2023 12:49pm Note Date/Time December 07, 2023 1 2:38pm [facility] Medical Records Department [address] [place] [address] Instructions for Home/Discharge Instructions 12/07/23 1238 MR#: [id number] Acct: [id number] Name: ANGÉLICA YO Rep #:[id number] 3 : 1955 68 From: Sachin chan MD PCP: Dr. Jacinda Benton MD Status:ADM IN Discharge Instructions Diet [...] Attending Provider: Sachin Murillo Primary Care Provider: Jacinda Benton Consulting Providers: Ruby Wynn; Kiley Carpenter; [...] Qty: 90 3RF Referrals / Follow Up: Jacinda Benton MD [Primary Care Provider] - Within 1 Week Disposition Disposition (needs filled in before D/C Order can be placed): Home Health Service 12/07/23 5045<Electronically signed by Sachin Murillo MD>Sachin Murillo MD CC: Jo Ann Krishnamurthy; Ruby Wynn; Rima Riggins; Michele Crawley; Kiley Carpenter MD;Angie Shields MD; Kt Friend MD; Deepika Graham MD; Dr. Lyle Mena MD; Dr. Roman Mckeon MD; Dr. Johnny Sepulveda MD; Dr. Jacinda Benton MD; Dr. Nikole Allison MD; Dr. Kristopher Hernández MD; Dr. Gerald Suh MD; Dr. Silvino Schmidt DO; Dr.Mhd Puneet Tellez MD; Dr. Sarkis Brown MD; Dr. Kirsten Azevedo MD; Dr. Joseph Desai MD; Dr. Samina Mortensen MD; Phil Terry MD; Maurilio Garland MD; Arleen Estrada DO; Jose Santos MD; Rhiannon Farris DO; Keyona Davidson MD ~ [facility] Work Phone: 1(999) 295-861901-18-2024 Progress note Author Sachin Murillo [facility] December 06, 2023 9:04am Note Date/Time December 06, 2023 9 :04am [facility] Medical Records Department [address] [place] [address] Progress Note - Hospitalist 12/06/23 0900 MR#: [id number] Acct: [id number] Name: ANGÉLICA YO Rep #:[id number] 3 : 1955 68 From: Sachin hcan MD PCP: Dr. Jacinda Benton MD Status:ADM IN Location: ICU ICU02-1 [...] and Output for Last 24 Hours 12/05/23 12/06/2312/07/24 03:59 03:59 03:59 Intake Total 340 / 340 636 / 636 212 / 212 Output Total 200 / 200 Balance 140 / 140 636 / 636 / 212 Lab / Micro Data 12/06/23 [...] (Auto) 79.3 H, Lymph % (Auto) 10.6L, Johnston % (Auto) 9.4, Eos % (Auto) 0.0, [...] 13:44 EST Reading Location ID and State: [facility] / [place] Tel , Service support , Rhythm Strip [...] Continue with Synthroid DVT: Eliquis Capacity Legal Oil Derrick Operator Reflex Medical hold order details:: IF a medical hold is selected below, a suggested order for a MEDICAL HOLD will reflex upon signing the document. Next of kin: [place] law dictates a PRIORITY LIST for identifying legal decision-maker/legal next of kin in the following order (LNOK): 1st: The patient?s legal guardian, if any 2nd: The patient's spouse (if status is questionable, consult Risk Management) 3rd: The patient?s adult child(blaine) (majority, if multiple children) 4th: The patient?s parents 5th: The patient?s adult siblings (majority, if multiple children siblings) Charges/Coding Visit Charges Inpatient E&M: 55745 Subs Hosp L2 12/06/23 0904 <Electronically signed by Sachin Murillo MD> Cosigner Signature (if applicable): CC: ~ Signed [facility] Work Phone: 1(880) 767-364001-17-2024 Progress note Author Kiley Carpenter [facility] December 05, 2023 3:42pm Note Date/Time December 05, 2023 1 :57pm [facility] Medical Records Department [address] [place] [address] Progress Note - Neurology 12/05/23 1348 MR#: [id number] Acct: [id number] Name: ANGÉLICA YO Rep #:[id number] 3 : 1955 68 From: Kiley Carpenter MD PCP: Dr. Jacinda Benton, MD Status:ADM IN Location: ICU ICU02-1 Assessment [...] NIHSS: Ischemic Stroke/TIA Start: 12/03/23 09:41 Freq: [id number] Status: Active Protocol: Activity Type Activity Date [...] 90.5 H, Lymph % (Auto) 5.1 L, Johnston % (Auto) 3.7, Eos % (Auto) 0.0, [...] 5 5 EF 5 5 WE WF Claim Auditor 5 5 HF 3 5 KE 4 5 KF 5 4 DF 5 5 PF 5 5 -? Sensation- Intact to light touch bilaterally -? Coordination: improved ataxia on the RLE (not prominent); b/l UE with no ataxia -? Gait- deferred 12/05/23 1542 <Electronically signed by Kiley Carpenter MD> Cosigner Signature (if applicable): CC: ~ Signed [facility] Work Phone: 1(564) 787-359801-17-2024 Progress note Author Sachin Murillo [facility] December 05, 2023 10:21am Note Date/Time December 05, 2023 1 0:21am [facility] Medical Records Department [address] [place] [address] Progress Note - Hospitalist 12/05/23 1016 MR#: [id number] Acct: [id number] Name: ANGÉLICA YO Rep #:[id number] 1 : 1955 68 From: Sachin chan MD PCP: Dr. Jacinda Benton MD Status:ADM IN Location: ICU ICU02-1 [...] 90.5 H, Lymph % (Auto) 5.1 L, Johnston % (Auto) 3.7, Eos % (Auto) 0.0, [...] meds as needed DVT: Eliquis Capacity Legal Oil Derrick Operator Reflex Medical hold order details:: IF a medical hold is selected below, a suggested order for a MEDICAL HOLD will reflex upon signing the document. Next of kin: [place] law dictates a PRIORITY LIST for identifying legal decision-maker/legal next of kin in the following order (LNOK): 1st: The patient?s legal guardian, if any 2nd: The patient's spouse (if status is questionable, consult Risk Management) 3rd: The patient?s adult child(blaine) (majority, if multiple children) 4th: The patient?s parents 5th: The patient?s adult siblings (majority, if multiple children siblings) Charges/Coding Visit Charges Inpatient E&M: 47914 Subs Hosp L2 12/05/23 1021 <Electronically signed by Sachin Murillo MD> Cosigner Signature (if applicable): CC: ~ Signed [facility] Work Phone: 1(515) 283-238901-17-2024 Progress note Author Jorge Hurtado [facility] December 05, 2023 8:31am Note Date/Time December 05, 2023 7 :39am [facility] Medical Records Department [address] [place] [address] Progress Note - Sap Consultant 12/05/23 0737 MR#: [id number] Acct: [id number] Name: ANGÉLICA YO Rep #:[id number] 1 : 1955 68 From: Jorge Hurtado DO PCP: Dr. Jacinda Benton MD Status:ADM IN Location: ICU ICU02-1 [...] noted above. This note was generated with [employer] dictation software. It may contain incorrectwords, spelling, [...] 90.5 H, Lymph % (Auto) 5.1 L, Johnston % (Auto) 3.7, Eos % (Auto) 0.0, [...] Psych cooperative Charges/Coding Visit Charges Inpatient E&M: 37886 Subs Hosp L2 12/05/23 0831 <Electronically signed by Jorge Hurtado DO> Cosigner Signature (if applicable): CC: ~ Signed [facility] Work Phone: 1(744) 958-616001-17-2024 Progress note Author Kiley Carpenter [facility] December 04, 2023 10:44pm Note Date/Time December 04, 2023 8 :19pm [facility] Medical Records Department [address] [facility] [place] [address] Progress Note - Neurology 12/04/232014 MR#: [id number] Acct: [id number] Name: ANGÉLICA YO Rep #:[id number] 8 : 1955 68 From: Kiley Carpenter MD PCP: Dr. Jacinda Benton MD Status:ADM IN Location: ICU ICU02-1 [...] NIHSS: Ischemic Stroke/TIA Start: 12/03/23 09:41 Freq: [id number] Status: Active Protocol: Activity Type Activity Date [...] Balance 406 / 406 2166 / 2166 / 28 Lab / Micro Data 12/04/23 [...] (Auto) 91.9 H, Lymph % (Auto)4.1 L, Johnston % (Auto) 3.1, Eos % (Auto) 0.0, [...] Cosigner Signature (if applicable): CC: ~ Signed [facility] Work Phone: 1(183) 213-842001-16-2024 Consult note Author Jorge Hurtado [facility] December 04, 2023 2:14pm Note Date/Time December 04, 2023 7 :20am [facility] Medical Records Department [address] [place] [address] Consultation - Sap Consultant 12/04/23 0715 MR#: [id number] Acct: [id number] Name: ANGÉLICA YO Rep #:[id number] 6 : 1955 68 From: Jorge Hurtado DO PCP: Dr. Jacinda Benton MD Status:ADM IN Location: ICU ICU02-1 [...] noted above. This note was generated with [employer] software. It may contain incorrectwords, spelling, and [...] maintained on Eliquis, Plavix, Neurontin and antimicrobials. [facility] Medical History Angina pectoris [...] Stomach morphine AdvReac Nausea Verified 11/26/23 12:47 Ziughpd-FLT-AtB Reductase AdvReac Nausea Verified 11/26/23 12:47 Inhibitor [Ltommkk-Olz-Wak Reductase Inhibitor] Family History Mother Cancer CAD [...] (Auto) 91.9 H, Lymph % (Auto)4.1 L, Johnston % (Auto) 3.1, Eos % (Auto) 0.0, [...] MD at 22:18 EST , Capacity Legal Oil Derrick Operator Reflex Medical hold order details:: IF a medical hold is selected below, a suggested order for a MEDICAL HOLD will reflex upon signing the document. Next of kin: [place] law dictates a PRIORITY LIST for identifying legal decision-maker/legal next of kin in the following order (LNOK): 1st: The patient?s legal guardian, if any 2nd: The patient's spouse (if status is questionable, consult Risk Management) 3rd: The patient?s adult child(blaine) (majority, if multiple children) 4th: The patient?s parents 5th: The patient?s adult siblings (majority, if multiple children siblings) Charges/Coding Visit Charges Inpatient E&M: 60078 Init Hosp L3 12/04/23 1414 <Electronically signed by Jorge Hurtado DO> Cosigner Signature (if applicable): CC: Jo Ann Raghu; Ruby Wynn; Rima Riggins; Michele Crawley; Kiley Carpenter MD;Angie Shields MD; Kt Friend MD; Deepika Graham MD; Dr. Lyle Mena MD; Dr. Daniel Edmonds MD; Dr. Isaias Scherer MD; Dr. Roman Mckeon MD; Dr. Johnny Sepulveda MD; Dr. Jorge Hurtado DO; Dr. Jacinda Benton MD; Dr. Brandon Gaming MD;Dr. Nikole [...] Rhiannon Farris DO; Keyona Davidson MD~ Signed [facility] Work Phone: 1(263) 910-837601-16-2024 Progress note Author Sachin Murillo [facility] December 04, 2023 9:58am Note Date/Time December 04, 2023 9 :58am [facility] Medical Records Department [address] [place] [address] Progress Note - Hospitalist 12/04/23 0953 MR#: [id number] Acct: [id number] Name: CHRISTINANGÉLICA DARDEN Rep #:[id number] 1 : 1955 68 From: Sachin chan MD PCP: Dr. Jacinda Benton MD Status:ADM IN Location: ICU ICU02-1 [...] (Auto) 91.9 H, Lymph % (Auto)4.1 L, Johnston % (Auto) 3.1, Eos % (Auto) 0.0, [...] meds as needed DVT: Eliquis Capacity Legal Oil Derrick Operator Reflex Medical hold order details:: IF a medical hold is selected below, a suggested order for a MEDICAL HOLD will reflex upon signing the document. Next of kin: [place] law dictates a PRIORITY LIST for identifying legal decision-maker/legal next of kin in the following order (LNOK): 1st: The patient?s legal guardian, if any 2nd: The patient's spouse (if status is questionable, consult Risk Management) 3rd: The patient?s adult child(blaine) (majority, if multiple children) 4th: The patient?s parents 5th: The patient?s adult siblings (majority, if multiple children siblings) Charges/Coding Visit Charges Inpatient E&M: 15647 Subs Hosp L2 12/04/23 0958 <Electronically signed by Sachin Murillo MD> Cosigner Signature (if applicable): CC: ~ Signed [facility] Work Phone: 1(172) 587-638901-16-2024 Progress note Author Roman Hewitt [facility] December 04, 2023 12:19am Note Date/Time December 03, 2023 8 :22pm [facility] Medical Records Department [address] [place] [address] Progress Note - Hospitalist 12/03/232018 MR#: [id number] Acct: [id number] Name: CHRISTINANGÉLICA SNOW Rep #:[id number] : 1955 68 From: Roman Ortega DO PCP: Dr. Jacinda Benton MD Status:ADM IN Location: ICU ICU02-1 [...] this time. I patiently spoke to the TAPPER HAND and informed her to send the patient [...] sonwas updated with results. RUN DATE: 12/03/23 [facility], DEPARTMENT OF LABORATORIES PAGE 1 RUN TIME: 2038 Specimen Inquiry [address] [facility] [place], [address] PATIENT: ANGÉLICA YO LOC: ICU U #: [id number] : 1955 AGE/SX: 68/F FACILITY: [facility] ROOM: ICU02 RE12/02/[address]: Dr. Sachin Murillo STATUS:ADM IN ED: 1 DIS: ~ SPEC #: [id number] LIZBET: 12/03/23 STATUS: COMP REQ #: [id number] RECD: 12/03/[address]: Dr. Sachin Murillo MD ENTERED: 12/03/[address]: Kt Friend MD, Angie Perales [...] CO2 23 mmol/L SO2 95 95-99 % [facility] Imaging Services [address] [place] [address] CTA Head AND Neck W/ Contrast MR#: [id number] Acct: [id number] Name: ANGÉLICA YO Rep #: [id number] : 1955 F 68 From: Charmaine Grant MD PCP: Dr. Jacinda Benton MD Status: ADM IN Study: CTA Head AND Neck W/ Contrast Date of Exam: 12/03/23 Exam# [id number] Ordering Dr: Roman Miller DO STUDY: CTA [...] There is no demonstrated aneurysm of the ewiiaapaayp of [place]. There is no demonstrated abnormality [...] , CC: Dr. Roman Miller DO; Dr. Jacinda Benton MD ~ Hotel Director: Signed 12/04/23 0019 <Electronically signed by Roman Miller DO> Cosigner Signature (if applicable): CC: ~ Signed [facility] Work Phone: 1(449) 274-434001-15-2024 Progress note Author Sachin Murillo [facility] December 03, 2023 2:31pm Note Date/Time December 03, 2023 2 :22pm [facility] Medical Records Department [address] [place] [address] Progress Note - Hospitalist 12/03/23 1419 MR#: [id number] Acct: [id number] Name: ANGÉLICA YO Rep #:[id number] 5 : 1955 68 From: Sachin chan MD PCP: Dr. Jacinda Benton MD Status:ADM IN Location: [place] [address] Subjective Subjective She was a stroke alert [...] 88.4 H, Lymph % (Auto) 10.2 L, Johnston % (Auto) 0.8, Eos % (Auto) 0.0, [...] Back by Jovon Freitas MD to Sachin Mruillo MD, and understanding confirmed on 12/03/2023 08:25:43 [...] meds as needed DVT: Eliquis Capacity Legal Oil Derrick Operator Reflex Medical hold order details:: IF a medical hold is selected below, a suggested order for a MEDICAL HOLD will reflex upon signing the document. Next of kin: [place] law dictates a PRIORITY LIST for identifying legal decision-maker/legal next of kin in the following order (LNOK): 1st: The patient?s legal guardian, if any 2nd: The patient's spouse (if status is questionable, consult Risk Management) 3rd: The patient?s adult child(blaine) (majority, if multiple children) 4th: The patient?s parents 5th: The patient?s adult siblings (majority, if multiple children siblings) Charges/Coding Visit Charges Inpatient E&M: 46732 Subs Hosp L2 12/03/23 1431 <Electronically signed by Sachin Murillo MD> Cosigner Signature (if applicable): CC: ~ Signed [facility] Work Phone: 1(860) 644-917001-14-2024 Consult note Author Kiley Carpenter [facility] December 02, 2023 2:51pm Note Date/Time December 02, 2023 2 :05pm [facility] Medical Records Department [address] [place] [address] Consultation - Neurology 12/02/23 1403 MR#: [id number] Acct: [id number] Name: ANGÉLICA YO Rep #:[id number] : 1955 68 From: Kiley Carpenter MD PCP: Dr. Jacinda Benton MD Status:ADM IN Location: [place] [address] Assessment and Plan: Neuro Assessment/Plan ANGÉLICA YO [...] any urinary symptoms. Her neurologist is in [place]. ANGÉLICA YO, is a 68 F with [...] hrs Had her aneurysm coiled in 2013. [facility] Medical History Angina pectoris [...] Stomach morphine AdvReac Nausea Verified 11/26/23 12:47 Dsouxtx-WFU-MgU Reductase AdvReac Nausea Verified 11/26/23 12:47 Inhibitor [Vuahlyy-Kef-Wps Reductase Inhibitor] Family History Mother Cancer CAD [...] 4 EF 5 4 WE l WF Claim Auditor 5 5 HF 3 4 KE 4 [...] % (Auto) 56.3, Lymph % (Auto) 28.5, Johnston % (Auto) 12.7 H, Eos % (Auto) [...] Clarity Clear, Urine pH 6.5, Ur Specific [place] 1.015, Urine Protein 15 H, Urine Glucose [...] 22:00 Apixaban 5 Mg Tablet PO BID [facility] Baclofen 20 mg 12/02/23 12:45 Baclofen 10 Mg Tablet PO Q8 [facility] Cholecalciferol 125 mcg 12/03/23 10:00 Cholecalciferol (Vit D3) 125 Mcg Capsule (5,000 Units) PO DAILY [facility] Clopidogrel Bisulfate 75 mg 12/03/23 10:00 Clopidogrel Bisulfate 75 Mg Tablet PO DAILY [facility] Docusate Sodium 100 mg 12/02/23 12:37 Docusate Sodium 100 Mg Capsule PO BID PRN PRN Constipation Gabapentin 800 mg 12/02/23 12:45 Gabapentin 800 Mg Tablet PO TIDCM [facility] Guaifenesin 1 tablet 12/02/23 22:00 Guaifenesin/D-Methorphan Tab.Sr.12h PO Q12 [facility] Guaifenesin 20 ml 12/02/23 12:37 Guaifenesin 10 Ml Udc (200mg/10ml) PO Q4H PRN PRN COUGH Potassium Chloride/Dextrose/Sod Cl 20 meq in 1,000 mls @ 100 mls/hr 12/02/23 12:37 IV 12/03/23 08:36 .Q10H VIMAL Ceftriaxone Sodium 1 gm in 50 mls @ 100 mls/hr 12/02/23 12:37 Rocephin IV 12/09/23 12:38 Q24 [facility] Levothyroxine Sodium 50 mcg 12/03/23 06:00 Levothyroxine 50 Mcg Tablet PO DAILY@0600 [facility] Lisinopril 5 mg 12/03/23 10:00 Lisinopril 5 Mg Tablet PO DAILY [facility] Protocol Melatonin 3 mg 12/02/23 12:37 Melatonin [...] PRN PRN Administration Pain Score 4-10 12/02/23 8521 <Electronically signed by Kiley Carpenter MD> Cosigner Signature (if applicable): CC: Jo Ann Krishnamurthy; Ruby Wynn; Rima Riggins; Michele Crawley; Kiley Carpenter MD;Angie Shields MD; Kt Friend MD; Dr. Johnny Sepulveda MD; Dr. Jacinda Benton MD;Dr. Nikole Allison MD; Dr. Kristopher Hernández MD; Dr. Gerald Suh MD; Dr. Silvino Schmidt DO; Dr. Simon Tellez MD; Dr. Sarkis Brown MD; Dr. Kirsten Azevedo MD; Dr. Joseph Desai MD; Dr. Samina Mortensen MD; Arleen Estrada DO; Keyona Davidson MD~ Signed [facility] Work Phone: 1(673) 468-745201-14-2024 Discharge summary Author Gabriella [facility] December 02, 2023 1:21pm Note Date/Time December 02, 2023 8 :23am [facility] Medical Records Department [address] [place] [address] Emergency Department Summary 12/02/23 MR#: [id number] Acct: [id number] Name: ANGÉLICA YO Rep #:[id number] 6 : 1955 68 From: Gabriella Green PCP: Dr. Jacinda Benton MD Status:ADM IN Location: [address] 1 [facility] History of Present Illness Chief Complaint: Dizziness [...] any urinary symptoms. Her neurologist is in [place]. [facility] Medical History Angina pectoris Bilateral carotid artery [...] Stomach morphine AdvReac Nausea Verified 11/26/23 12:47 Eqptvlo-VPE-QvE Reductase AdvReac Nausea Verified 11/26/23 12:47 Inhibitor [Fiipuaf-Lth-Oqd Reductase Inhibitor] Family History Mother Cancer CAD [...] off the bed. Is able to do sktccn-wo-hjmo but has bilateral ataxia with it. Too [...] to touch my finger her nose with ropevg-ap-otft. Her symptoms started at least 24 hours [...] % (Auto) 56.3 Lymph % (Auto) 28.5 Johnston % (Auto) 12.7 H Eos % (Auto) [...] Clarity Clear Urine pH 6.5 Ur Specific [place] 1.015 Urine Protein 15 H Urine Glucose [...] 8:45 EST Reading Location ID and State: [facility] / [place] Tel , Service support , Chest X-Ray 12/02/23 07:28 IMPRESSION: Minimal infiltrate or atelectasis of the right lower lobe. Electronically Signed: Chago Mcintyre MD at 9:06 EST Reading Location ID and State: [facility] / [place] Tel , Service support , Rhythm Strip [...] Multiple sclerosis Disposition Disposition: Acute Care Hospital [facility] Discharge Date/Time: 12/02/23 12:36 What to do if you have Problems For any increased pain, shortness of breath, bleeding, nausea or vomiting, chestpain, or any unexpected problems, contact your Primary Care Provider. Call Doctors Registry ([phone]) or report to the closest Emergency Room. Call 911 if necessary. 12/02/23 1321 <Electronically signed by Gabriella Simpson DO> Cosigner Signature (if applicable): CC: Dr. Jacinda Benton MD ~ Signed [facility] Work Phone: 1(775) 285-968501-14-2024 History and physical note Author Roman Mckeon [facility] December 02, 2023 11:53am Note Date/Time December 02, 2023 1 1:43am [facility] Medical Records Department [address] [place] [address] H&P Exam - Hospitalist 12/02/23 1140 MR#: [id number] Acct: [id number] Name: ANGÉLICA YO Rep #:[id number] : 1955 68 From: Roman Mckeon MD PCP: Dr. Jacinda Benton MD Status:ADM IN Location: MS3 VE881-1 HPI - General General Date of Admission: [...] to a monitored bed for further management [facility] Medical History Angina pectoris [...] Stomach morphine AdvReac Nausea Verified 11/26/23 12:47 Euenurz-TWV-HqA Reductase AdvReac Nausea Verified 11/26/23 12:47 Inhibitor [Wdmdneg-Zgm-Tnp Reductase Inhibitor] Family History Mother Cancer CAD [...] % (Auto) 56.3, Lymph % (Auto) 28.5, Johnston % (Auto) 12.7 H, Eos % (Auto) [...] Clarity Clear, Urine pH 6.5, Ur Specific [place] 1.015, Urine Protein 15 H, Urine Glucose [...] 18 minutes. Charges/Coding Visit Charges Inpatient E&M: 07363 Init Hosp L3 Procedures Hospitalists Procedures: 89098 Advncd Care Plan 30 Min 12/02/23 1153 <Electronically signed by Roman Mckeon MD> Cosigner Signature (if applicable): CC: Dr. Roman Mckeon MD; Dr. Jacinda Benton MD~ Signed [facility] Work Phone: 1(146) 407-385101-09-2024 Discharge summary Author Ramírez Onofre [facility] November 27, 2023 11:55am Note Date/Time November 27, 2023 9: 40am [facility] Medical Records Department [address] [place] [address] Emergency Department Summary 11/27/23 MR#: [id number] Acct: [id number] Name: ANGÉLICA YO Rep #:[id number] 3 : 1955 68 From: Ramírez Onofre MD PCP: Dr. Jacinda Benton MD Status:REG ER Location: ED HPI [...] Prior similar symptoms: No Recent Illness/Hospitalization: [facility] Medical History Angina pectoris [...] Stomach morphine AdvReac Nausea Verified 11/26/23 12:47 Kywnqiu-YYC-DmF Reductase AdvReac Nausea Verified 11/26/23 12:47 Inhibitor [Isvzcft-Mja-Urc Reductase Inhibitor] Family History Mother Cancer CAD [...] moving all 4 extremities. 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 Dorsi and plantarflexion [...] 71.7 H Lymph % (Auto) 16.8 L Johnston % (Auto) 9.9 Eos % (Auto) 0.4 [...] DAILY Qty: 90 3RF Primary Care Provider: Jacinda Benton Referrals: Jacinda Benton MD [Primary Care Provider] - As [...] your Primary Care Provider. Call Doctors Registry ([phone]) or report to the closest Emergency Room. Call 911 if necessary. 11/27/23 1642 <Electronically signed by Ramírez Onofre MD> Cosigner Signature (if applicable): CC: Dr. Jacinda Benton MD ~ Signed [facility] Work Phone: 1(998) 464-654101-03-2024 Discharge summary Author Sachin Murillo [facility] November 21, 2023 9:07am Note Date/Time November 21, 2023 8: 56am [facility] Medical Records Department [address] [place] [address] Instructions for Home/Discharge Instructions 11/21/23 0855 MR#: [id number] Acct: [id number] Name: ANGÉLICA YO Rep #:[id number] : 1955 68 From: Sachin chan MD PCP: Dr. Jacinda Benton MD Status:ADM IN Discharge Instructions Diet [...] Attending Provider: Sachin Murillo Primary Care Provider: Jacinda Benton Consulting Providers: Sommer Resendiz Instructions Additional [...] Qty: 90 3RF Referrals / Follow Up: Jacinda Benton MD [Primary Care Provider] - 11/27/23 11:00 am Betsey Lindquist PA [Med Staff - [facility] Practice Prof] - Within 1 Month Disposition Disposition (needs filled in before D/C Order can be placed): Home, Self Care 11/21/23 0907<Electronically signed by Sachin Murillo MD>Sachin Murillo MD CC: Dr. Sommer Resendiz MD; Dr. Jacinda Benton MD ~ Signed [facility] Work Phone: 1(680) 607-372601-02-2024 Progress note Author Sachin Murillo [facility] November 20, 2023 10:23am Note Date/Time November 20, 2023 10 :23am [facility] Medical Records Department [address] [place] [address] Progress Note - Hospitalist 11/20/23 1021 MR#: [id number] Acct: [id number] Name: ANGÉLICA YO Rep #:[id number] 6 : 1955 68 From: Sachin chan MD PCP: Dr. Jacinda Benton MD Status:ADM IN Location: [place] [address] Subjective Subjective Still feels fatigued and unwell [...] 81.9 H, Lymph % (Auto) 5.9 L, Johnston % (Auto) 9.8, Eos % (Auto) 0.1, [...] mmHg. Ordering Physician: Sommer Resendiz Referring Physician: Jacinda Benton Performed By: Willian Peace, MARY, RVT Chest X-Ray 11/19/23 05:15 IMPRESSION: No significant interval change in focal opacity in the right mid chest, which may represent focal pneumonia or pulmonary nodule. Recommend follow-up to resolution. Electronically Signed: Angle Reynoso MD at 14:56 EST Reading Location ID and State: [facility] / [place] Tel , Service support , Physical Exam [...] DVT: SCDs Charges/Coding Visit Charges Inpatient E&M: 76493 Subs Hosp L2 11/20/23 1023 <Electronically signed by Sachin Murillo MD> Cosigner Signature (if applicable): CC: ~ Signed [facility] Work Phone: 1(784) 312-239801-01-2024 Progress note Author Sachin Murillo [facility] November 19, 2023 10:52am Note Date/Time November 19, 2023 10 :52am [facility] Medical Records Department [address] [place] [address] Progress Note - Hospitalist 11/19/23 1046 MR#: [id number] Acct: [id number] Name: CHRISTINANGÉLICA Rep #:[id number] 6 : 1955 68 From: Sachin chan MD PCP: Dr. Jacinda Benton MD Status:ADM IN Location: [place] [address] 1 Subjective Subjective Doing well, no issues overnight. [...] % (Auto) 66.4, Lymph % (Auto) 19.4, Johnston % (Auto) 12.9 H, Eos % (Auto) [...] Clarity Clear, Urine pH 6.0, Ur Specific [place] 1.015, Urine Protein Negative, Urine Glucose (UA) [...] (Auto) 67.7, Lymph % (Auto) 17.1 L, Johnston % (Auto) 13.3 H, Eos % (Auto) [...] DVT: SCDs Charges/Coding Visit Charges Inpatient E&M: 83049 Subs Hosp L2 11/19/23 1052 <Electronically signed by Sachin Murillo MD> Cosigner Signature (if applicable): CC: ~ Signed [facility] Work Phone: 1(497) 409-155812-31-2023 History and physical note Author Sommer Resendiz [facility] November 18, 2023 8:55pm Note Date/Time November 18, 2023 2:14pm [facility] Medical Records Department [address] [place] [address] H&P Exam - Hospitalist 11/18/23 1413 MR#: [id number] Acct: [id number] Name: ANGÉLICA YO Rep #:[id number] : 1955 68 From: Sommer Resendiz MD PCP: Dr. Jacinda Benton MD Status:ADM IN Location: [place] [id number] 1 HPI - General General Date of [...] injury associated to now represents to the [facility] ED on 11/18/23 with history of [...] Stomach morphine AdvReac Nausea Verified 11/15/23 11:27 Tinvldf-MVP-EaB Reductase AdvReac Nausea Verified 11/15/23 11:27 Inhibitor [Lflquou-Mhd-Lsa Reductase Inhibitor] Family History Mother Cancer CAD [...] % (Auto) 66.4, Lymph % (Auto) 19.4, Johnston % (Auto) 12.9 H, Eos % (Auto) [...] Clarity Clear, Urine pH 6.0, Ur Specific [place] 1.015, Urine Protein Negative, Urine Glucose (UA) [...] 13:04 EST Reading Location ID and State: [address] [place] [address] Tel , Service support , Assessment & [...] injury associated to now represents to the [facility] ED on 11/18/23 with history of [...] Code status. Charges/Coding Visit Charges Inpatient E&M: 49254 Init Hosp L3 11/18/232054 <Electronically signed by Sommer Resendiz MD> Cosigner Signature (if applicable): CC: Dr. Sommer Resendiz MD; Dr. Jacinda Benton MD~ Signed [facility] Work Phone: 1(391) 406-595712-31-2023 Discharge summary Author Michele Kebede [facility] November 18, 2023 3:08pm Note Date/Time November 18, 2023 12:03pm [facility] Medical Records Department [address] [place] [address] Emergency Department Summary 11/18/23 MR#: [id number] Acct: [id number] Name: ANGÉLICA YO Rep #:[id number] : 1955 68 From: Michele Kebede MD PCP: Dr. Jacinda Benton MD Status:REG ER Location: ED HPI [...] she has never had atrial fibrillation. [facility] Medical History Angina pectoris Bilateral carotid artery [...] Stomach morphine AdvReac Nausea Verified 11/15/23 11:27 Hibvbtq-QZL-RxR Reductase AdvReac Nausea Verified 11/15/23 11:27 Inhibitor [Bmionul-Fly-Fpp Reductase Inhibitor] Family History Mother Cancer CAD [...] % (Auto) 66.4 Lymph % (Auto) 19.4 Johnston % (Auto) 12.9 H Eos % (Auto) [...] Clarity Clear Urine pH 6.0 Ur Specific [place] 1.015 Urine Protein Negative Urine Glucose (UA) [...] 13:04 EST Reading Location ID and State: [address] [place] [address] Tel , Service support , EKG Initial [...] pressure, Influenza A Disposition Disposition: Acute Care [facility] What to do if you have Problems For any increased pain, shortness of breath, bleeding, nausea or vomiting, chestpain, or any unexpected problems, contact your Primary Care Provider. Call [facility] Registry ([phone]) or report to the closest Emergency Room. Call 911 if necessary. 11/18/23 1508 <Electronically signed by Michele Kebede MD> Cosigner Signature (if applicable): CC: Dr. Jacinda Benton MD ~ Signed [facility] Work Phone: 1(260) 994-422712-31-2023 Discharge summary Author Michele Kebede [facility] November 18, 2023 3:08pm Note Date/Time November 18, 2023 12:03pm [facility] Medical Records Department [address] [place] [address] Emergency Department Summary 11/18/23 MR#: [id number] Acct: [id number] Name: ANGÉLICA YO Rep #:[id number] 0 : 1955 68 From: Michele Kebede MD PCP: Dr. Jacinda Benton MD Status:REG ER Location: ED HPI [...] she has never had atrial fibrillation. [facility] Medical History Angina pectoris Bilateral carotid artery [...] Stomach morphine AdvReac Nausea Verified 11/15/23 11:27 Iclxkgz-BSM-FjA Reductase AdvReac Nausea Verified 11/15/23 11:27 Inhibitor [Auycqgu-Sxw-Snj Reductase Inhibitor] Family History Mother Cancer CAD [...] % (Auto) 66.4 Lymph % (Auto) 19.4 Johnston % (Auto) 12.9 H Eos % (Auto) [...] Clarity Clear Urine pH 6.0 Ur Specific [place] 1.015 Urine Protein Negative Urine Glucose (UA) [...] Influenza A Disposition Disposition: Acute Care Hospital [facility] What to do if you have Problems For any increased pain, shortness of breath, bleeding, nausea or vomiting, chestpain, or any unexpected problems, contact your Primary Care Provider. Call [facility] ([phone]) or report to the closest Emergency Room. Call 911 if necessary. 11/18/23 1508 <Electronically signed by Michele Kebede MD> Cosigner Signature (if applicable): CC: Dr. Jacinda Benton MD ~ Signed [facility] Work Phone: 1(869) 797-460312-28-2023 History and physical note Author Sommer Resendiz [facility] November 15, 2023 3:44pm Note Date/Time November 15, 2023 3:14pm [facility] Medical Records Department [address] [place] [address] H&P Exam - Hospitalist 11/15/23 1512 MR#: [id number] Acct: [id number] Name: ANGÉLICA YO Rep #:[id number] 3 : 1955 68 From: Sommer Resendiz MD PCP: Dr. Jacinda Benton MD Status:ADM IN [facility] HPI - General General Date of Admission: 11/15/23 Date of Service: 11/15/23 Chief Complaint: Poor intake, malaise, fatigue, weakness, N/V/D HPI Narrative The patient is a 68 y/o F w/ PMHx: Hx Cerebral aneurysm, Chronic pain syndrome, HTN, HLD, Hx TIA, Multiple Sclerosis, Nonobstructive CAD, Psoriatic arthritis, PAD, NS SVT, GERD, Hypothyroidism, Carotid disease, Tobacco use who presents to the [facility] ED on 11/15/23 with history of [...] x 1 and 1 L normal saline. [facility] Medical History Angina pectoris [...] Stomach morphine AdvReac Nausea Verified 11/15/23 11:27 Yvvoyhn-QPD-HmG Reductase AdvReac Nausea Verified 11/15/23 11:27 Inhibitor [Bcedtvu-Yge-Uru Reductase Inhibitor] Family History Mother Cancer CAD [...] 70.4 H, Lymph % (Auto) 14.3 L, Johnston % (Auto) 14.5 H, Eos % (Auto) [...] disease, Tobacco use who presents to the [facility] ED on 11/15/23 with history of [...] 16 minutes. Charges/Coding Visit Charges Inpatient E&M: 35401 Init Hosp L3 Procedures Hospitalists Procedures: 11037 Advncd Care Plan 30 Min 11/15/23 1544 <Electronically signed by Sommer Resendiz MD> Cosigner Signature (if applicable): CC: Dr. Sommer Resendiz MD; Dr. Jacinda Benton MD~ Signed [facility] Work Phone: 1(618) 498-634012-28-2023 Discharge summary Author Michele Kebede [facility] November 15, 2023 3:10pm Note Date/Time November 15, 2023 12:02pm [facility] Medical Records Department [address] [place] [address] Emergency Department Summary 11/15/23 MR#: [id number] Acct: [id number] Name: ANGÉLICA YO Rep #:[id number] 2 : 1955 68 From: Michele Kebede MD PCP: Dr. Jacinda Benton MD Status:REG ER Location: ED HPI [...] she cannot take the strong medications. [facility] Medical History Angina pectoris Bilateral carotid artery [...] Stomach morphine AdvReac Nausea Verified 11/15/23 11:27 Cneegwv-QAD-JhS Reductase AdvReac Nausea Verified 11/15/23 11:27 Inhibitor [Ktmxglm-Lpi-Vcc Reductase Inhibitor] Family History Mother Cancer CAD [...] 70.4 H Lymph % (Auto) 14.3 L Johnston % (Auto) 14.5 H Eos % (Auto) [...] ventricular ectopy. No acuteST elevation or depression. AK interval, QRS duration are normal. QTc is [...] DAILY Qty: 90 3RF Primary Care Provider: Jacinda Benton Referrals: Jacinda Benton MD [Primary Care Provider] - Disposition Disposition: Acute Care Hospital [facility] What to do if you have Problems For any increased pain, shortness of breath, bleeding, nausea or vomiting, chestpain, or any unexpected problems, contact your Primary Care Provider. Call [facility] ([phone]) or report to the closest Emergency Room. Call 911 if necessary. 11/15/23 1510 <Electronically signed by Michele Kebede MD> Cosigner Signature (if applicable): CC: Dr. Jacinda Benton MD ~ Signed [facility] Work Phone: [phone]) 350-344312-28-2023 Discharge summary Author Michele Kebede [facility] November 15, 2023 3:10pm Note Date/Time November 15, 2023 12:02pm [facility] Medical Records Department [address] [place] [address] Emergency Department Summary 11/15/23 MR#: [id number] Acct: [id number] Name: CHRISTINANGÉLICA ADELSO Rep #:[id number] 2 : 1955 68 From: Michele Kebede MD PCP: Dr. Jacinda Benton MD Status:REG ER Location: ED HPI [...] she cannot take the strong medications. [facility] Medical History Angina pectoris Bilateral carotid artery [...] Stomach morphine AdvReac Nausea Verified 11/15/23 11:27 Aksnjwe-CCH-FuJ Reductase AdvReac Nausea Verified 11/15/23 11:27 Inhibitor [Iydnmgq-Acn-Klq Reductase Inhibitor] Family History Mother Cancer CAD [...] 70.4 H Lymph % (Auto) 14.3 L Johnston % (Auto) 14.5 H Eos % (Auto) [...] 13:03 EST Reading Location ID and State: [facility] / MD Tel , Service support , EKG Initial EKG: Comments: My independent interpretation of the patient's EKG shows sinus rhythm with a slightly bradycardic rate at 56. No ventricular ectopy. No acuteST elevation or depression. AK interval, QRS duration are normal. QTc is [...] DAILY Qty: 90 3RF Primary Care Provider: Jacinda Benton Referrals: Jacinda Benton MD [Primary Care Provider] - Disposition Disposition: Acute Care Hospital [facility] What to do if you have Problems For any increased pain, shortness of breath, bleeding, nausea or vomiting, chestpain, or any unexpected problems, contact your Primary Care Provider. Call [facility] ([phone]) or report to the closest Emergency Room. Call 911 if necessary. 11/15/23 1510 <Electronically signed by Michele Kebede MD> Cosigner Signature (if applicable): CC: Dr. Jacinda Benton MD ~ Signed [facility] Work Phone: 1(962) 190-608111-17-2023 History of Present illness Narrative* Kristopher Main MD - 10/05/2023 3:00 PM EST Images from the original note were not included. [facility] [address] [place] [address] [facility] [address] Dept: [phone] Dept Loc: [phone] Patient was seen today via Telehealth by [...] stated that they are currently in the [facility]. If the patient is a minor,permission has [...] TSH VITAMIN B12: No results found for: SSKVLPIW05 No results found for: PHENYTOIN, PHENOBARB, VALPROATE, CBMZ No results found for: LEVETIRACETA, FERRITIN, CRP, DENNIS, ANCA FERRITIN: No results found for: FERRITIN @RESULTINGLABINFO@ No components found for: TOPIRA No results found for: CHRISTIANO, IMMUNOGLOBUL, OLIGOBANDS No results found for: DWF51CX, HEPCAB No results found for: CRP, ANATITER, [...] volume rendered reformats were obtained using a [employer] workstation. Review of the axial source data [...] of the major intracranial arteries at the ewiiaapaayp of [place]. 6. No hemodynamically significant narrowing [...] and arranging for studies. documented in this [facility]11-17-2023 Telephone encounter Note* Telephone Encounter - Yanely Kwon MA - 10/05/2023 12:58 PM EST Patient has been scheduled and records are being faxed over. [id number] Miscellaneous Notes* Telephone Encounter - Yanely Kwon MA - 10/05/2023 12:58 PM EST Patient has been scheduled and records are being faxed over. * Telephone Encounter - Kristopher Main MD - 10/05/2023 12:36 PM EST Get records from [facility]. OK to add her on at 3 PM as a real or a virtual visit * Telephone Encounter - Ольга Pa - 10/05/2023 9:20 AM EST Name of caller: Angélica Contact phone number: [phone] Relationship to Patient: patient Provider: DR Main [...] return their call: Yes documented in this [facility]11-17-2023 Telephone encounter Note* Telephone Encounter - Kristopher Main MD - 10/05/2023 12:36 PM EST Get records from [facility]. OK to add her on at 3 PM as a real or a virtual visit [facility] [id number] Telephone encounter Note* Telephone Encounter - Ольга Pa - 10/05/2023 9:20 AM EST Name of caller: Angélica Contact phone number: [phone] Relationship to Patient: patient Provider: DR Main [...] hours to return their call: Yes [facility] Yhiwxz07-03-4941 Telephone encounter Note* Telephone Encounter - Annalee Ram - 06/15/2023 9:41 AM EDT Medication name: baclofen (Lioresal) 20 MG tablet [[id number]] Order Details Dose: 20 mg Route: Oral [...] Original Order: baclofen (Lioresal) 20 MG tablet [[id number]] Providers Ordering and Authorizing Provider: Kristopher Main MD NEGRA #: [id number] Ordering User: Kristopher Main MD Pharmacy [id number] [address] [place] [address] [place], [place] [id number] NEGRA #: -- Date of last office visit: 04/04/23 Date of next office visit: None Date of last refill: (see medication tab): 10/05/22 Updated/Validated preferred pharmacy: Yes Patient instructed to contact the pharmacy prior to picking up the medication: Yes [facility]Pwrkcy67-03-8254 Miscellaneous Notes* Telephone Encounter - Annalee Ram - 06/15/2023 9:41 AM EDT Medication name: baclofen (Lioresal) 20 MG tablet [[id number]] Order Details Dose: 20 mg Route: Oral [...] Original Order: baclofen (Lioresal) 20 MG tablet [[id number]] Providers Ordering and Authorizing Provider: Kristopher Main MD NEGRA #: [id number] Ordering User: Kristopher Main MD Pharmacy [facility] #[id number] [facility] [address] [facility] [address] [place] [id number] NEGRA #: -- Date of last office visit: 04/04/23 Date of next office visit: None Date of last refill: (see medication tab): 10/05/22 Updated/Validated preferred pharmacy: Yes Patient instructed to contact the pharmacy prior to picking up the medication: Yes documented in this [facility]SThe [facility] HospitalTyijjn50-04-1045 Telephone encounter Note* Telephone Encounter - Kristopher Main MD - 06/04/2023 4:04 PM EDT Rx renewed [facility]panhn14-56-3408 Miscellaneous Notes* Telephone Encounter - Kristopher Main [...] up the medication: Yes documented in this [facility]07-17-2023 Telephone encounter Note* Telephone Encounter - Bina Snow - 06/04/2023 3:31 PM EDT Please advise. [facility] CenterBe[facility] Buding Fang[employer] TechnologyKhylvs37-63-0826 Telephone encounter Note* Telephone Encounter - Jeni [...] picking up the medication: Yes [facility] [id number] Hospital Discharge instructions Additional Instructions 1. Do not place an Jean-Claude wrap on your foot this probably contributed to the swelling. 2. Apply ice to calf 6-10 times a day for the next 3 to 5 daysWKettering [facility] Work Phone: [phone]) 300-798112-22-2022 Hospital Discharge instructions Patient Education 11/09/2022 12:48:32 [...] and water are not available, use hand semiconductor processing technician. ?Change your dressing as told by [...] the contrast dye from your body. Take qpqx-gzn-blafnkm and prescription medicines only as told by [...] 05/24/2006 Document Revised: 10/18/2018 Document Reviewed: 10/10/2017 [employer] Patient Education 2020 [employer]. 11/09/2022 12:48:21 Moderate Conscious Sedation, Adult, Care [...] until you are awake and alert. Take nqqx-rfy-abchrii and prescription medicines only as told by [...] 08/26/2014 Document Revised: 10/18/2018 Document Reviewed: 02/24/2017 [employer] Patient Education 2020 [employer]. Follow Up Care 10/27/2022 15:58:56 With:TYE BARNETT MD, [facility], Surgery, Vascular Surgeons Address: [facility] [address] [facility] [address] [place] [address] When: Unknown Comments:Follow-up as scheduled [facility] 12-22-2022 Summary of episode note Discharge Instructions Thank you for allowing [facility] to assist you with your healthcare needs. The following is importantdischarge information regarding your hospital visit. What to do next Follow Up Appointments Follow Up with TYE BARNETT MD, [facility], Surgery, Vascular Surgeons When Why: Follow-up as scheduled Where: [facility] [address] [facility] [address] [place] [address] The Following Activity and Diet [...] and water are not available, use hand semiconductor processing technician. ? Change your dressing as told [...] the contrast dye from your body. Take ldhz-saz-kxvfswz and prescription medicines only as told by [...] 05/24/2006 Document Revised: 10/18/2018 Document Reviewed: 10/10/2017 [employer] Patient Education 2020 [employer] Moderate Conscious Sedation, Adult, Care After [...] until you are awake and alert. Take xzoh-rrz-ojtgscd and prescription medicines only as told by [...] 08/26/2014 Document Revised: 10/18/2018 Document Reviewed: 02/24/2017 [employer] Patient Education 2020 [employer] Additional Information VACCINATE! IT SAVES LIVES! Members of the community who have not yet received the COVID-19 vaccine and would like to receive it can visit one of [facility] vaccine clinics. There are many vaccine clinic locations within the [facility]. For locations and available times, please visit [email or web address].[place].gov/. It is important to note that some COVID mobile vaccine clinics are held outdoors and may be canceled in rainy or stormy conditions. To learn more about pediatric vaccinations (ages 5-11), we invite you to visit the [facility] webpage. https://[email or web address].[email or web address]/pages/8476-Elvfd-Gsebyfpvowa-Zafiwitrfh-Mrait-Wnm stions.htmlTo learn more about the COVID-19 vaccine, we invite you to visit the [facility] website for a list of frequently asked questions. [email or web address] [email or web address]/assets/Otrslcvg-zhx-Ddjmfizd/rqbil-Kutxyfv-Wyshegaqeg _Asked-Questions.pdf [facility] Patient Portal Access Instructions: Stay connected with your healthcare team and access your personal medical information anytime with the [facility] [employer] Patient Portal.If you would like a full copy of your medical records, please contact the [facility] Medical Records Department, Sunday through Sunday between 8a.m. and 4:30p.m. Please follow the directions below to access the portal: 1.Access the email account you provided upon registration to the [facility].2.Look for an invitation email from [facility].3.Open the email and access the invitation link: Accept Invitation to [facility] [employer]4.Fill in the required duarte to create your account. Sign into [email or web address] with your username and password that you [...] you will allow to register on the [facility] [employer] Patient Portal for access to your information. You can also access the [facility] Patient Portal on the [employer] anthony. Simply click on Health Records under HealthData and then click on the [employer] logo. [...] Call your local pharmacy or go to http://bit.ly/3A4Bz8p to find one close to you.3.Make use of household items: Use cat litter or old coffee grounds to dispose medications if other options arenot available. Mix your drugs with these household products, seal them in an airtight container andthrow it into the garbage. Call [facility]: [phone] to be sure your drugs can be [...] aware that I should contact my doctor. 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 [facility] [id number] Note ORIGINAL Images acquired, not reported on this accession number.[facility] 04-12-2021 NoteHNO ID: [id number] Author: RT Sandra(Mayda) Service: ? Author Type: Research And Development Researcher Type: Progress Notes Filed: 04/12/2021 2:14 PM [...] Yo DATE: April 12, 2021 TIME: 2:13 [facility]03-24-2021 NoteHNO ID: [id number] Author: Alexander Gore Service: ? Author Type: Physician Type: [...] of wound at high risk for bone exposure.[facility]01-07-2021 History of Present illness Narrative* Tammy Cornejo (Rt), Tech - 11/25/2020 3:10 PM EST Radiology Service [...] 25, 2020 3:08 PM documented in this encounterMcKitrick Hospitallt note Author Willian Raza [facility] November 16, 2023 10:43am Note Date/Time November 16, 2023 10:43am [facility] Medical Records Department [facility] [place] [address] Counseling Note - Pharmacy 11/16/23 1043 MR#: [id number] Acct: [id number] Name: ANGÉLICA YO Rep #:[id number] 0 : 1955 68 From: Willian Raza PCP: Dr. Jacinda Benton MD Status:ADM IN Y Location: [place] [address] Pharmacy [place] Med Reconciliation Pharmacy Service has performed discharge [...] tabs 11/16/23 11/16/23 1043 <Electronically signed by Willian Raza > Date _ Willian Raza Cosigner Signature (if applicable): Date CC: ~ Signed [facility] Work Phone: Consult note Author Christel Miranda [facility] November 21, 2023 11:56am Note Date/Time November 21, 2023 11 :56am [facility] Medical Records Department [address] [place] [address] Counseling Note - Pharmacy 11/21/23 1155 MR#: [id number] Acct: [id number] Name: ANGÉLICA YO Rep #:[id number] 2 : 1955 68 From: Christel Miranda PCP: Dr. Jacinda Benton MD Status:ADM IN Location: [place] [address] Pharmacy [facility] Pharmacy Service has performed discharge medication [...] by Christel Miranda> Date _ Christel Miranda Cosstephyer Signature (if applicable): Date CC: ~ Signed [facility] Work Phone: Consult note Author Christel Miranda [facility] February 25, 2024 4:09pm Note Date/Time February 25, 2024 4:08 pm [facility] Medical Records Department [facility] [place] [address] Counseling Note - Pharmacy 02/25/24 1607 MR#: [id number] Acct: [id number] Name: ANGÉLICA YO Rep #:[id number] 2 : 1955 68 From: Christel Miranda PCP: Dr. Jacinda Benton MD Status:ADM IN Y Location: [place] [address] Pharmacy [facility] Pharmacy Service has performed discharge medication [...] signed by Christel Miranda> Date _ Christel Vanegasigner Signature (if applicable): Date CC: ~ Signed [facility] Work Phone: Consult note Author Christel Miranda [facility] Note Date/Time April 22, 2025 4:00p [facility] Medical Records Department [address] [place] [address] Counseling Note - Pharmacy 04/22/25 1559 MR#: [id number] Acct: [id number] Name: ANGÉLICA YO Rep #:[id number] 8 : 1955 69 From: Christel Miranda PCP: Dr. Jacinda Benton MD Status:ADM IN Location: [place] [address] Pharmacy [facility] Counseling Pharmacy Service has performed discharge [...] Signature (if applicable): Date CC: ~ Signed [facility] Work Phone: Discharge summary Author Hi Garcia [facility] November 16, 2023 10:38am Note Date/Time November 16, 2023 10:33am [facility] Medical Records Department [address] [place] [address] Instructions for Home/Discharge Instructions 11/16/23 1032 MR#: [id number] Acct: [id number] Name: ANGÉLICA YO Rep #:[id number] 1 : 1955 68 From: Hi Llanos PCP: Dr. Jacinda Benton MD Status:ADM IN Discharge Instructions Diet [...] Attending Provider: Hi Garcia Primary Care Provider: Jacinda Benton Consulting Providers: Sommer Resendiz Discharge Orders/Prescriptions [...] for 7 days. Referrals / Follow Up: Jacinda Benton MD [Primary Care Provider] - Disposition Disposition (needs filled in before D/C Order can be placed): Home, Self Care 11/16/23 1038<Electronically signed by Hi Garcia MD>Hi Garcia MD CC: Dr. Sommer Resendiz MD; Dr. Jacinda Benton MD ~ Signed [facility] Work Phone: Discharge summary Author Hi Jose [facility] November 16, 2023 10:51am Note Date/Time November 16, 2023 10:50am [facility] Medical Records Department [address] [place] [address] Discharge Summary 11/16/23 1043 MR#: [id number] Acct: [id number] Name: ANGÉLICA YO Rep #:[id number] 7 : 1955 68 From: Hi Llanos PCP: Dr. Jacinda Benton MD Status:ADM IN Location: [place] [address] Providers Date of Admission: 11/15/23 Date of Discharge: 11/16/23 Primary Care Physician: Dr. Jacinda Benton MD Reason For Visit: INFLUENZA A, [...] and hypotension: [facility]. [facility] resuscitated well IV fluid normal [...] 70.4 H, Lymph % (Auto) 14.3 L, Johnston % (Auto) 14.5 H, Eos % (Auto) [...] Sl. Cloudy, Urine pH 5.0, Ur Specific [place] 1.015, Urine Protein 15 H, Urine Glucose [...] Neut % (Auto) 57.7, Lymph % (Auto) 25.5,Johnston % (Auto) 15.7 H, Eos % (Auto) [...] Attending Provider: Hi Garcia Primary Care Provider: Jacinda Benton Consulting Providers: Sommer Resendiz Instructions Additional [...] for 7 days. Referrals / Follow Up: Jacinda Benton MD [Primary Care Provider] - Disposition Disposition (needs filled in before D/C Order can be placed): Home, Self Care Charges/Coding Addendum Addendum: Patient was admitted as inpatient but was discharged because of recovery of hyponatremia and CHRISTOPHER with IV fluid replacement sooner than expected at time of admission. Patient wants to go home. Visit Charges Inpatient E&M: 17078 Disch Hosp >30min 11/16/23 1051 <Electronically signed by Hi Garcia MD> Cosigner Signature (if applicable): CC: Dr. Jacinda Benton MD; Dr. Hi Garcia MD~ Signed [facility] Work Phone: Discharge summary Author Sachin Murillo [facility] November 21, 2023 11:01am Note Date/Time November 21, 2023 11 :01am [facility] Medical Records Department [address] [place] [address] Discharge Summary 11/21/23 1057 MR#: [id number] Acct: [id number] Name: ANGÉLICA YO Rep #:[id number] 1 : 1955 68 From: Sachin chan MD PCP: Dr. Jacinda Benton MD Status:ADM IN Location: [place] [address] Providers Date of Admission: 11/18/23 Primary Care Physician: Dr. Jacinda Benton MD Reason For Visit: PAF NEW [...] injury associated to now represents to the [facility] ED on 11/18/23 with history of [...] % (Auto) 62.0, Lymph % (Auto) 14.3L, Johnston % (Auto) 18.8 H, Eos % (Auto) [...] Attending Provider: Sachin Murillo Primary Care Provider: Jacinda Benton Consulting Providers: Sommer Resendiz Instructions Additional [...] Qty: 90 3RF Referrals / Follow Up: Jacinda Benton MD [Primary Care Provider] - 11/27/23 11:00 am Betsey Lindquist PA [Med Staff - Adv Practice Prof] - 12/21/23 1:00 pm Disposition Disposition (needs filled in before D/C Order can be placed): Home, Self Care Charges/Coding Visit Charges Inpatient E&M: 79568 Disch Hosp >30min 11/21/23 1101 <Electronically signed by Sachin Murillo MD> Cosigner Signature (if applicable): CC: Dr. Jacinda Benton MD; Dr. Sachin Murillo MD~ Signed [facility] Work Phone: Discharge summary Author Sachin Murillo [facility] December 07, 2023 2:21pm Note Date/Time December 07, 2023 2 :21pm [facility] Medical Records Department [address] [place] [address] Discharge Summary 12/07/23 1417 MR#: [id number] Acct: [id number] Name: ANGÉLICA YO Rep #:[id number] 0 : 1955 68 From: Sachin chan MD PCP: Dr. Jacinda Benton MD Status:ADM IN Location: ICU ICU02-1 Providers Date of Admission: 12/02/23 Primary Care Physician: Dr. Jacinda Benton MD Consultations 12/02/23 12:37 Consult: Tele-Neurology Routine Consulting Provider: [facility] Reason for Consult: Possible MS flareup EMERGENT Consult: No MD Notified: Yes Date Notified: 12/02/23 Time Notified: 11:39 Method of Notification: Answering Service Nursing Unit Staff Notify [facility] of Tele-Neurology Consult: Yes 12/04/23 06:18 Consult: Sap Consultant / Pulmonary Medicine Routine Consulting Provider: Intensivists/Pulmonary [...] 71.0 H, Lymph % (Auto) 17.9 L, Johnston % (Auto) 9.8, Eos % (Auto) 0.1, [...] Attending Provider: Sachin Murillo Primary Care Provider: Jacinda Benton Consulting Providers: Ruby Wynn; Kiley Carpenter; Arleen Estrada; Rima Riggins; Roman Mckeon; Deepika Graham; Maurilio Garland; Phil Terry; SARI MENA; Jose Santos; Rhiannon Farris; Kt Friend; Angie Shields; Jo Ann Krsihnamurthy; Johnny Sepulveda; Nikole Allison; Gerald Suh; Kristopher [...] Qty: 90 3RF Referrals / Follow Up: Jacinda Benton MD [Primary Care Provider] - Within 1 Week Disposition Disposition (needs filled in before D/C Order can be placed): Home Health Service Charges/Coding Visit Charges Inpatient E&M: 76002 Disch Hosp >30min 12/07/23 1421 <Electronically signed by Sachin Murillo MD> Cosigner Signature (if applicable): CC: Dr. Jacinda Benton MD; Dr. Sachin Murillo MD~ Signed [facility] Work Phone: Discharge summary Author Yasmani Asacatina [facility] Note Date/Time June 03, 2025 7:47 am [facility] Medical Records Department [address] [place] [address] Emergency Department Summary 06/03/25 MR#: [id number] Acct: [id number] Name: ANGÉLICA YO Rep #:[id number] 3 : 1955 69 From: Yasmani Haynes DO PCP: Dr. Jacinda Benton MD Status:REG ER Location: ED HPI [...] the persistent pain comes in for evaluation. [facility] Medical History Hypertensive emergency NSTEMI, initial episode of care Emphysema of lung Smoking greater than 30 pack years New onset atrial fibrillation [place] (dyspnea on exertion) Atherosclerotic heart disease of [place] coronary artery without angina pectoris Cardiac murmur [...] Stomach morphine AdvReac Nausea Verified 06/03/25 02:30 Bolykwc-SPW-YdB Reductase AdvReac Nausea Verified 06/03/25 02:30 Inhibitor (Yiidcmd-Cju-Vsd Reductase Inhibitor) Family History Mother Cancer CAD [...] of blood. The case was discussed with helicopter mechanic/Dr. Gonzalez. He states that with her anemia [...] (Auto) 69.4 Lymph % (Auto) 13.4 L Johnston % (Auto) 14.0 H Eos % (Auto) [...] 03:20 IMPRESSION: Small right effusion. Reading Location: [place] [address] Chest x-ray is interpreted by the emergency medicine physician reveals a small right pleural effusion without acute infiltrate or pneumothorax Management Discussion w/another healthcare provider: Hospitalist and Cattle Killer Discharge Plan Triage Chief Complaint: Edema ED Provider: Yasmani Haynes Dx/Rx/DC Orders Clinical Impression: Anemia, Congestive heart failure, Paroxysmal atrial fibrillation, Current use of [facility] anticoagulation Prescriptions: No Action gabapentin 800 mg [...] 10 mg PO QDAY Primary Care Provider: Jacinda Benton Referrals: Jacinda Benton MD [Primary Care Provider] - Print Language: Surinamese Disposition Disposition: Acute Care Hospital [facility] What to do if you have Problems For any increased pain, shortness of breath, bleeding, nausea or vomiting, chestpain, or any unexpected problems, contact your Primary Care Provider. Call [facility] ([phone]) or report to the closest Emergency Room. Call 911 if necessary. 06/03/25 0747 <Electronically signed by Yasmani Haynes DO> Cosigner Signature (if applicable): CC: Dr. Jacinda Benton MD ~ Signed [facility] Work Phone: Evaluation + Plan note No data available for this section [facility] Evaluation note* Diagnosis Onset Date Resolution Status Effusion of left knee joint acute Left knee DJD acute Psoriatic arthritis acute Chronic pain chronic Peripheral vascular occlusive disease chronic Bilateral carotid artery stenosis chronic Essential (primary) hypertension chronic Nonobstructive atherosclerosis of coronary artery chronic Peripheral vascular occlusive disease [facility] Work Phone: Evaluation note* Diagnosis Onset Date Resolution Status Peripheral vascular occlusive disease chronic Bilateral carotid artery stenosis chronic Essential (primary) hypertension chronic Nonobstructive atherosclerosis of coronary artery chronic Peripheral vascular occlusive disease chronic Bilateral carotid artery stenosis chronic Essential (primary) hypertension chronic Nonobstructive atherosclerosis of coronary artery chronic Peripheral vascular occlusive disease [facility] Work Phone: Evaluation note* Diagnosis Onset Date Resolution Status Cardiac murmur acute Bilateral carotid artery stenosis chronic Essential (primary) hypertension chronic Nonobstructive atherosclerosis of coronary artery chronic Peripheral vascular occlusive disease [facility] Work Phone: Evaluation noteNo assessment information available [facility] Work Phone: Evaluation note* Diagnosis Onset Date Resolution Status Effusion of left knee joint acute Left knee DJD acute Psoriatic arthritis acute Cardiac murmur acute [place]OL[place]O (dyspnea on exertion) ac curtis Bilateral carotid artery stenosis chronic Essential (primary) hypertension chronic Nonobstructive atherosclerosis of coronary artery chronic Peripheral vascular occlusive disease chronic [facility] Work Phone: Evaluation note* Diagnosis Onset Date Resolution Status Effusion of left knee joint acute Left knee DJD acute Psoriatic arthritis acute Cardiac murmur acute [place] (dyspnea on exertion) ac curtis Bilateral carotid artery stenosis chronic Essential (primary) hypertension chronic Nonobstructive atherosclerosis of coronary artery chronic Peripheral vascular occlusive disease chronic Left knee DJD acute Psoriatic arthritis acute [facility] Work Phone: Evaluation note* Diagnosis Onset [...] Left knee DJD acute Psoriatic arthritis acute [facility] Work Phone: Evaluation note* Diagnosis Onset Date Resolution Status Left knee DJD acute Psoriatic arthritis acute 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 Effusion of left knee joint acute Left knee DJD acute Psoriatic arthritis acute [facility] Work Phone: Evaluation note* Diagnosis Onset Date Resolution Status 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 Effusion of left knee joint acute Left knee DJD acute Psoriatic arthritis acute Intercostal neuralgia acute Thoracic back pain acute [facility] Work Phone: Evaluation note* Diagnosis Onset Date Resolution Status Effusion of left knee joint acute Left knee DJD acute Psoriatic arthritis acute Intercostal neuralgia acute Thoracic back pain acute Psoriatic arthritis acute Thoracic back pain acute Multiple sclerosis chronic [facility] Work Phone: Evaluation note* Diagnosis Multiple sclerosis (HCC) [facility] ([facility]) [facility] Diagnosis Onset Date Resolution Status Psoriatic arthritis acute Thoracic back pain acute Multiple sclerosis chronic Bilateral carotid artery stenosis chronic Essential (primary) hypertension chronic Nonobstructive atherosclerosis of coronary artery chronic Peripheral vascular occlusive disease chronic [facility] Work Phone: Evaluation note* Diagnosis Onset Date Resolution Status Bilateral carotid artery stenosis chronic Essential (primary) hypertension chronic Nonobstructive atherosclerosis of coronary artery chronic Peripheral vascular occlusive disease chronic [facility] Work Phone: Evaluation note* Diagnosis Multiple sclerosis (HCC)- Primary Multiple sclerosis Cerebrovascular disease, unspecified Primary hypertension Unspecified essential hypertension [facility] Diagnosis Onset Date Resolution Status Knee joint effusion acute [facility] Work Phone: Evaluation note* Diagnosis Onset Date Resolution Status Knee joint effusion acute Bilateral carotid artery stenosis chronic Essential (primary) hypertension chronic Nonobstructive atherosclerosis of coronary artery chronic Peripheral vascular occlusive disease chronic Acute hyponatremia acute Acute kidney injury acute Dehydration acute Influenza A acute [facility] Work Phone: Evaluation note* Diagnosis Onset Date Resolution Status Knee joint effusion acute Bilateral carotid artery stenosis chronic Essential (primary) hypertension chronic Nonobstructive atherosclerosis of coronary artery chronic Peripheral vascular occlusive disease chronic Acute hyponatremia acute Acute kidney injury acute Dehydration acute Influenza A acute Atrial fibrillation acute Chest pressure acute Elevated troponin acute Influenza A acute New onset atrial fibrillation acute [facility] Work Phone: Evaluation note* Diagnosis Onset Date Resolution Status Knee joint effusion acute Bilateral carotid artery stenosis chronic Essential (primary) hypertension chronic Nonobstructive atherosclerosis of coronary artery chronic Peripheral vascular occlusive disease chronic Acute kidney injury acute Acute hyponatremia resolved Dehydration resolved Atrial fibrillation acute Chest pressure acute Elevated troponin acute New onset atrial fibrillation acute [facility] Work Phone: Evaluation note* Diagnosis Onset Date Resolution Status Knee joint effusion acute Bilateral carotid artery stenosis chronic Essential (primary) hypertension chronic Nonobstructive atherosclerosis of coronary artery chronic Peripheral vascular occlusive disease chronic Acute kidney injury acute Acute hyponatremia resolved Dehydration resolved Atrial fibrillation acute Chest pressure acute Elevated troponin acute New onset atrial fibrillation acute Weakness acute [facility] Work Phone: Evaluation note* Diagnosis Onset [...] Weakness acute Multiple sclerosis chronic [facility] Work Phone: Evaluation note* Diagnosis Multiple sclerosis (HCC)- Primary Multiple sclerosis Dizziness Dizziness and giddiness Imbalance Abnormality of gait Vision disturbance Unspecified visual disturbance [facility] Diagnosis Onset Date Resolution Status [...] (primary) hypertension chronic Peripheral vascular occlusive disease [facility] Work Phone: Evaluation note* Diagnosis Multiple sclerosis (HCC) Multiple sclerosis documented [facility]* Diagnosis Onset Date [...] (primary) hypertension chronic Peripheral vascular occlusive disease [facility] Work Phone: Evaluation note* Diagnosis Onset [...] (primary) hypertension chronic Peripheral vascular occlusive disease [facility] Work Phone: Evaluation note* Diagnosis Onset [...] symptoms of anemia resolved Symptomatic anemia resolved [facility] Work Phone: Evaluation note* Diagnosis [facility] Diagnosis Other specified symptoms and signs involving the circulatory and respiratory systems- Primary Cerebrovascular disease, unspecified documented in this encounter [facility]* Diagnosis Multiple sclerosis (HCC) [facility] Diagnosis Multiple sclerosis (HCC)- Primary Multiple sclerosis Mild cognitive impairment Mild cognitive impairment, so stated Fatigue, unspecified type Deficiency of multiple nutrient elements Other nutritional deficiency documented in this encounter [facility]* Diagnosis Multiple sclerosis (HCC)- Primary Multiple sclerosis Dysphasia Other speech disturbance documented in this encounter [facility]* Diagnosis Multiple sclerosis (HCC) Multiple sclerosis [facility] Author Sommer Resendiz [facility] November 15, 2023 3:44pm Note Date/Time November 15, 2023 3:14pm [facility] Medical Records Department [address] [place] [address] H&P Exam - Hospitalist 11/15/23 1512 MR#: [id number] Acct: [id number] Name: ANGÉLICA YO Rep #:[id number] 3 : 1955 68 From: Sommer Resendiz MD PCP: Dr. Jacinda Benton MD Status:ADM IN [facility] - General General Date of Admission: 11/15/23 Date of Service: 11/15/23 Chief Complaint: Poor intake, malaise, fatigue, weakness, N/V/D HPI Narrative The patient is a 68 y/o F w/ PMHx: Hx Cerebral aneurysm, Chronic pain syndrome, HTN, HLD, Hx TIA, Multiple Sclerosis, Nonobstructive CAD, Psoriatic arthritis, PAD, NS SVT, GERD, Hypothyroidism, Carotid disease, Tobacco use who presents to the [facility] ED on 11/15/23 with history of [...] x 1 and 1 L normal saline. [facility] Medical History Angina pectoris [...] Stomach morphine AdvReac Nausea Verified 11/15/23 11:27 Jnnrvnx-QBS-PmN Reductase AdvReac Nausea Verified 11/15/23 11:27 Inhibitor [Xrygluo-Mbp-Gxp Reductase Inhibitor] Family History Mother Cancer CAD [...] 70.4 H, Lymph % (Auto) 14.3 L, Johnston % (Auto) 14.5 H, Eos % (Auto) [...] disease, Tobacco use who presents to the [facility] ED on 11/15/23 with history of [...] 16 minutes. Charges/Coding Visit Charges Inpatient E&M: 10182 Init Hosp L3 Procedures Hospitalists Procedures: 82788 Advncd Care Plan 30 Min 11/15/23 1544 <Electronically signed by Sommer Resendiz MD> Cosigner Signature (if applicable): CC: Dr. Sommer Resendiz MD; Dr. Jacinda Benton MD~ Signed [facility] Work Phone: History and physical note Author Roman Mckeon [facility] December 02, 2023 11:53am Note Date/Time December 02, 2023 1 1:43am [facility] Medical Records Department [address] [place] [address] H&P Exam - Hospitalist 12/02/23 1140 MR#: [id number] Acct: [id number] Name: ANGÉLICA YO Rep #:[id number] : 1955 68 From: Roman Mckeon MD PCP: Dr. Jacinda Benton MD Status:ADM IN Location: ND3 [id number] HPI - General General Date of Admission: [...] to a monitored bed for further management [facility] Medical History Angina pectoris [...] Stomach morphine AdvReac Nausea Verified 11/26/23 12:47 Whqwngi-AOS-KxL Reductase AdvReac Nausea Verified 11/26/23 12:47 Inhibitor [Nrbbwba-Uql-Vqh Reductase Inhibitor] Family History Mother Cancer CAD [...] % (Auto) 56.3, Lymph % (Auto) 28.5, Johnston % (Auto) 12.7 H, Eos % (Auto) [...] Clarity Clear, Urine pH 6.5, Ur Specific [place] 1.015, Urine Protein 15 H, Urine Glucose [...] 18 minutes. Charges/Coding Visit Charges Inpatient E&M: 05905 Init Hosp L3 Procedures Hospitalists Procedures: 94563 Advncd Care Plan 30 Min 12/02/23 1153 <Electronically signed by Roman Mckeon MD> Cosigner Signature (if applicable): CC: Dr. Roman Mckeon MD; Dr. Jacinda Benton MD~ Signed [facility] Work Phone: [facility] Work Phone: [facility] Work Phone: Hospital Discharge instructions Additional Instructions Please follow-up with your primary care doctor. If your pain gets worse you do not feel you can effectively take care of yourself at home please return to the emergency room. [facility] Work Phone: Hospital Discharge instructions Additional [...] any further concerns or worsening of symptoms [facility] Work Phone: Hospital Discharge instructions Additional Instructions Continue following up outpatient. You need to follow-up with your PCP, make them aware that you no longer taking her Eliquis. Return for any worsening symptoms. Chest x-ray was clear today.[facility] Work Phone: Hospital Discharge instructions Additional Instructions Labs and CAT scan today showed no significant changes in the past. No signs of acute stroke. Call and follow-up with your primary care physician if this is not improving you and he can discuss further imaging of your neck to see if you may have a pinched nerve.[facility] Work Phone: Hospital Discharge instructions Additional Instructions In 2019, Dr. 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 Make an appointment to see him as soon as possible to have this reevaluated.[facility] Work Phone: Hospital Discharge instructions Additional [...] you are at risk of getting internal bleeding.[facility] Work Phone: Hospital Discharge instructions Additional [...] any further concerns or worsening of symptoms. [facility] Work Phone: Hospital Discharge instructionsAdditional Instructions Please continue all of your home medications as directed by your doctor use the capsaicin and oxycodone to help control pain from the shingles and return to the ER should you have any further concernsWKettering Health Work Phone: Hospital Discharge instructionsAdditional Instructions CT brain negative.[facility] Work Phone: Progress note Author Kevin Friend [facility] Note Date/Time April 22, 2025 5:49p m [facility] Medical Records Department [address] [place] [address] Progress Note 04/22/25 1747 MR#: [id number] Acct: [id number] Name: ANGÉLICA YO Rep #:[id number] 8 : 1955 69 From: Kevin Friend DO PCP: Dr. Jacinda Benton MD Status:ADM IN Location: MS3 [id number] Progress Note Patient is doing well today. [...] for further workup Visit Charges Inpatient E&M: 71816 Subs Hosp L3 04/22/25 1749 <Electronically signed by Kevin Gonzalez DO> Kevin Gonzalez DO Cosigner Signature (if applicable): CC: ~ Signed [facility] Work Phone: Progress note Author Kevin Gonzalez [facility] Note Date/Time June 09, 2025 5:37 pm [facility] Medical Records Department [address] [place] [address] Progress Note 06/09/251735 MR#: [id number] Acct: [id number] Name: ANGÉLICA YO Rep #:[id number] : 1955 69 From: Kevin Gonzalez DO PCP: Dr. Jacinda Benton MD Status:ADM IN Location: [place] [address] Progress Note Patient has not had any [...] outpatient capsule endoscopy. Visit Charges Inpatient E&M: 65606 Subs Hosp L3 06/09/25 173 <Electronically signed by Kevin Gonzalez DO> Kevin Gonzalez DO Cosigner Signature (if applicable): CC: ~ Signed [facility] Work Phone: Reason for referral (narrative)* Consultation (Routine) - Pending Review Specialty Diagnoses / Procedures Referred By Hillary christie Referred To Contact Ophthalmology Diagnoses Vision disturbance Procedures [place] OFFICE/OUTPATIENT NEW HIGH MDM 60 MINUTES Lizz Lynn APRN - CNP [address] [id number] Cecilio Gibbs MD [address] [place] [address] Referral ID Status Reason Start Date Expiration Date Visits Requested Visits Authorized [id number] Pending Review Specialty Services Required 12/14/2023 12/13/2024 1 1 * Therapy (Routine) - Pending Review Specialty Diagnoses / Procedures Referred By Hillary christie Referred To Contact Physical Therapy Diagnoses Dizziness Imbalance Procedures [place] OFFICE/OUTPATIENT NEW HIGH MDM 60 MINUTES Lizz Lynn APRN - CNP [address] [facility] [address] [place] [address] Referral ID Status Reason Start Date Expiration Date Visits Requested Visits Authorized [id number] Pending Review Eval and Treat 12/14/2023 06/11/2024 99 99 Scheduling Instructions Twice weekly x 4 weeks for dizziness and imbalance [facility] for referral (narrative)No reason for referral information availableWKettering Health Work Phone: Summary Purpose Family History No [...] No February 17, 2022 9:49pm Power of Research And Development Researcher No February 17 9:49pm Advance Directive Response Recorded Date/ Time Advance Directives No January 18 8:11am Living Will No February 18, 2022 4:14am Power of Research And Development Researcher No February 18 4:14am Advance Directive Response Recorded Date/ Time Advance Directives No January 18 8:11am Living Will No February 20, 2022 4:54pm Power of Research And Development Researcher No February 20 4:54pm Advance Directive Response Recorded Date/ Time Advance Directives No January 18 7:11am Living Will No February 20, 2022 3:54pm Power of Research And Development Researcher No February 20 2 3:54pm Advance Directive Response Recorded Date/ Time Advance Directives No January 18 7:11am Living Will No November 24 3 11:31pm Power of Research And Development Researcher No November 24 023 11:31pm Advance Directive Response Recorded Date/ Time Advance Directives No January 18 8:11am Living Will No November 25 3 12:31am Power of Research And Development Researcher No November 25 023 12:31am Advance Directive Response Recorded Date/ Time Advance Directives No January 18 8:11am Living Will No March 16, 2023 12:46pm Power of Research And Development Researcher No March 16 12:46pm Advance Directive Response Recorded Date/ Time Advance Directives No January 18 8:11am Living Will No March 31, 2023 1 2:40pm Power of Research And Development Researcher No March 31, 2023 12:40pm Advance Directive Response Recorded Date/ Time Advance Directives No January 18 8:11am Living Will No April 08, 2023 9 :22am Power of Research And Development Researcher No April 08, 2023 9:22am Advance Directive Response Recorded Date/ Time Advance Directives No January 18 7:11am Living Will No October 05, 2 023 12:50am Power of Research And Development Researcher No October 05, 2023 12:50am Advance Directive Response Recorded Date/ Time Advance Directives No January 18 7:11am Living Will No November 15, 2 023 11:28am Power of Research And Development Researcher No November 15, 2023 11:28am Advance Directive Response Recorded Date/ Time Advance Directives No January 18 7:11am Living Will No November 15, 2 023 4:24pm Power of Research And Development Researcher No November 15, 2023 4:24pm Advance Directive Response Recorded Date/ Time Advance Directives No January 18 7:11am Living Will No November 18, 2 023 11:47am Power of Research And Development Researcher No November 18, 2023 11:47am Advance Directive Response Recorded Date/ Time Advance Directives No January 18 7:11am Living Will No November 18, 2 023 3:44pm Power of Research And Development Researcher No November 18, 2023 3:44pm Advance Directive Response Recorded Date/ Time Advance Directives No January 18 7:11am Living Will No November 26 1:53pm Power of Research And Development Researcher No November 26 024 1:53pm Advance Directive Response Recorded Date/ Time Advance Directives No January 18 7:11am Living Will No November 27 9:06am Power of Research And Development Researcher No November 27 024 9:06am Advance Directive Response Recorded Date/ Time Advance Directives No January 18 7:11am Living Will No December 02 6:38am Power of Research And Development Researcher No December 02, 2023 6:38am Advance Directive Response Recorded Date/ Time Advance Directives No January 18 7:11am Living Will No December 02 12:37pm Power of Research And Development Researcher No December 02, 2023 12:37pm Advance Directive Response Recorded Date/ Time Advance Directives No January 18 7:11am Living Will No January 18, 2024 10:25am Power of Research And Development Researcher No January 17 10:25am Advance Directive Response Recorded Date/ Time Advance Directives No January 18 8:11am Living Will No February 19, 2024 10:57am Power of Research And Development Researcher No February 18 10:57am Advance Directive Response Recorded Date/ Time Advance Directives No January 18 8:11am Living Will No February 19, 2024 5:33pm Power of Research And Development Researcher No February 18 5:33pm Advance Directive Response Recorded Date/ Time Living Will No December 17 11:30am Do you have a Healthcare Power of Research And Development Researcher? No December 17, 2024 11:30am Do you have a Healthcare Power of Research And Development Researcher? No April 02, 2025 7:26pm Living Will No December 09 3:59pm Do you have a Healthcare Power of Research And Development Researcher? No December 09, 2024 3:59pm Living Will No January 11 025 2:51am Do you have a Healthcare Power of Research And Development Researcher? No January 11, 2025 2:51am Advance Directives No January 18 8:11am Advance Directive Response Recorded Date/ Time Do you have a Healthcare Power of Research And Development Researcher? No April 02, 2025 7:26pm Do you have a Healthcare Power of Research And Development Researcher? No April 11, 2025 1:19pm Living Will No January 11 025 2:51am Do you have a Healthcare Power of Research And Development Researcher? No January 11, 2025 2:51am Do you have a Healthcare Power of Research And Development Researcher? No April 17, 2025 10:20pm Advance Directives No January 18 8:11am Advance Directive Response Recorded Date/ Time Do you have a Healthcare Power of Research And Development Researcher? No April 02, 2025 7:26pm Do you have a Healthcare Power of Research And Development Researcher? No April 11, 2025 1:19pm Do you have a Healthcare Power of Research And Development Researcher? No April 18, 2025 6:43pm Living Will No January 11 025 2:51am Do you have a Healthcare Power of Research And Development Researcher? No January 11, 2025 2:51am Do you have a Healthcare Power of Research And Development Researcher? No April 17, 2025 10:20pm Advance Directives No January 18 8:11am Advance Directive Response Recorded Date/ Time Do you have a Healthcare Power of Research And Development Researcher? No April 02, 2025 7:26pm Do you have a Healthcare Power of Research And Development Researcher? No April 11, 2025 1:19pm Do you have a Healthcare Power of Research And Development Researcher? No April 18, 2025 9:53pm Living Will No January 11 2:51am Do you have a Healthcare Power of Research And Development Researcher? No January 11, 2025 2:51am Do you have a Healthcare Power of Research And Development Researcher? No April 17, 2025 10:20pm Advance Directives No January 18 8:11am Advance Directive Response Recorded Date/ Time Do you have a Healthcare Power of Research And Development Researcher? No April 02, 2025 7:26pm Do you have a Healthcare Power of Research And Development Researcher? No April 11, 2025 1:19pm Do you have a Healthcare Power of Research And Development Researcher? No April 18, 2025 9:53pm Do you have a Healthcare Power of Research And Development Researcher? No April 17, 2025 10:20pm Advance Directives No January 18 8:11am Advance Directive Response Recorded Date/ Time Do you have a Healthcare Power of Research And Development Researcher? No April 02, 2025 7:26pm Do you have a Healthcare Power of Research And Development Researcher? No April 11, 2025 1:19pm Do you have a Healthcare Power of Research And Development Researcher? No April 18, 2025 9:53pm Do you have a Healthcare Power of Research And Development Researcher? No May 19, 2025 10:27pm Do you have a Healthcare Power of Research And Development Researcher? No April 17, 2025 10:20pm Advance Directives No January 18 8:11am Advance Directive Response Recorded Date/ Time Do you have a Healthcare Power of Research And Development Researcher? No April 02, 2025 7:26pm Do you have a Healthcare Power of Research And Development Researcher? No April 11, 2025 1:19pm Do you have a Healthcare Power of Research And Development Researcher? No April 18, 2025 9:53pm Do you have a Healthcare Power of Research And Development Researcher? No Melvina 1st, 2025 10:27pm Do you have a Healthcare Power of Research And Development Researcher? No April 17, 2025 10:20pm Do you have a Healthcare Power of Research And Development Researcher? No June 03, 2025 2:30am Advance Directives No January 18 8:11am Advance Directive Response Recorded Date/ Time Do you have a Healthcare Power of Research And Development Researcher? No April 02, 2025 7:26pm Do you have a Healthcare Power of Research And Development Researcher? No April 11, 2025 1:19pm Do you have a Healthcare Power of Research And Development Researcher? No April 18, 2025 9:53pm Do you have a Healthcare Power of Research And Development Researcher? No May 19, 2025 10:27pm Do you have a Healthcare Power of Research And Development Researcher? No April 17, 2025 10:20pm Do you have a Healthcare Power of Research And Development Researcher? No June 03, 2025 8:49am Advance Directives No January 18 8:11am Advance Directive Response Recorded Date/ Time Do you have a Healthcare Power of Research And Development Researcher? No April 02, 2025 7:26pm Do you have a Healthcare Power of Research And Development Researcher? No April 11, 2025 1:19pm Do you have a Healthcare Power of Research And Development Researcher? No April 18, 2025 9:53pm Do you have a Healthcare Power of Research And Development Researcher? No May 19, 2025 10:27pm Do you have a Healthcare Power of Research And Development Researcher? No July 05, 2025 8:52pm Do you have a Healthcare Power of Research And Development Researcher? No April 17, 2025 10:20pm Do you have a Healthcare Power of Research And Development Researcher? No June 03, 2025 8:49am Advance Directives No January 18 8:11am Advance Directive Response Recorded Date/ Time Do you have a Healthcare Power of Research And Development Researcher? No April 02, 2025 7:26pm Do you have a Healthcare Power of Research And Development Researcher? No April 11, 2025 1:19pm Do you have a Healthcare Power of Research And Development Researcher? No April 18, 2025 9:53pm Do you have a Healthcare Power of Research And Development Researcher? No May 19, 2025 10:27pm Do you have a Healthcare Power of Research And Development Researcher? No July 05, 2025 8:52pm Do you have a Healthcare Power of Research And Development Researcher? No July 22, 2025 11:31pm Do you have a Healthcare Power of Research And Development Researcher? No April 17, 2025 10:20pm Do you have a Healthcare Power of Research And Development Researcher? No June 03, 2025 8:49am Advance Directives [...] Weakness Weakness Weakness Weakness Weakness Weakness S/P [facility] 11/21/23 DIZZINESS,IMBALANCE/RX HERE fall Reason for [...] Weakness Weakness Weakness Weakness Weakness Weakness S/P [facility] 11/21/23 DIZZINESS,IMBALANCE/RX HERE fall FALL, HEAD [...] Weakness Weakness Weakness Weakness Weakness Weakness S/P [facility] 11/21/23 DIZZINESS,IMBALANCE/RX HERE fall FALL, HEAD [...] Weakness Weakness Weakness Weakness Weakness Weakness S/P [facility] 11/21/23 DIZZINESS,IMBALANCE/RX HERE fall FALL, HEAD [...] Weakness Weakness Weakness Weakness Weakness Weakness S/P [facility] 11/21/23 DIZZINESS,IMBALANCE/RX HERE fall FALL, HEAD [...] 2024 1 :16pm Bilateral carotid artery stenosis Janbrucer josé miguel 2024 1:16pm Essential (primary) hypertension December 19, 2024 1:16pm PAF (paroxysmal atrial fibrillation) Gerald barrerary 2024 1:16pm Peripheral vascular occlusive disease Ja jaredary 2024 1:16pm 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 F ebruary 2024 1:52pm Hypoxemia December 24, 2024 1 :52pm Emphysema of lung December 24, 2024 1 :52pm Nicotine dependence, cigarettes, uncompl icated December 24, 2024 1:52pm Smoking greater than 30 pack years Febru vince 2024 1:52pm Atherosclerotic heart diseas e of [place] coronary artery without angina pectoris January 10, [...] 2024 1:14pm Chief Complaint Admit Date S/P [facility] 12/11December 19, 2024 1 :16pm 3 [...] vascular occlusive disease Ja nuary 2024 1:16pm Yskvm-5-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 F ebruary 2024 1:52pm Hypoxemia December 24, 2024 1 :52pm Emphysema of lung December 24, 2024 1 :52pm Nicotine dependence, cigarettes, uncompl icated December 24, 2024 1:52pm Smoking greater than 30 pack years 2024 1:52pm Atherosclerotic heart diseas e of [place] coronary artery without angina pectoris January 10, [...] 11:45pm Smoking greater than 30 pack years [facility] 2024 11:45pm Mitral stenosis February 20, 2025 1:14 pm NSTEMI (non-ST elevated myocardial infar ction) February 20, 2025 1:14pm Bilateral carotid artery stenosis February 20, 2025 1:14pm Essential (primary) hypertension February 202024 1:14pm PAF (paroxysmal atrial fibrillation) Apr il 2024 1:14pm Peripheral vascular occlusive disease Ap ril 2024 1:14pm Chief Complaint Admit Date S/P [facility] 12/11December 19, 2024 1 :16pm 3 [...] 2024 1:16pm PAF (paroxysmal atrial fibrillation) Gerald barreralynn 2024 1:16pm Peripheral vascular occlusive disease Javan goyal 2024 1:16pm Zlynr-7-gzxeovmyypg deficiency carrier F ebruary 2024 1:52pm Hypoxemia December 24, 2024 1 :52pm Emphysema of lung December 24, 2024 1 :52pm Nicotine dependence, cigarettes, uncompl icated December 24, 2024 1:52pm Smoking greater than 30 pack years 2024 1:52pm Atherosclerotic heart diseas e of [place] coronary artery without angina pectoris January 10, [...] 12:30 pm Reason for Visit Admit Date Pjlnm-1-gkzkegdcrgl deficiency carrier F ebruary 2024 1:52pm Hypoxemia December 24, 2024 1 :52pm Emphysema of lung December 24, 2024 1 :52pm Nicotine dependence, cigarettes, uncompl icated December 24, 2024 1:52pm Smoking greater than 30 pack years [email or web address] 1:52pm Atherosclerotic heart diseas e of [place] coronary artery without angina pectoris January 10, [...] Admit Date Atherosclerotic heart diseas e of [place] coronary artery without angina pectoris January 10, [...] April 18, 2025 9:27p m SYMPTOMATIC ANEMIA Apple 1st, 2025 7:10a m SYMPTOMATIC ANEMIA April 20, [...] LAB WORK June 17, 2025 5:00 am headache July 05, 2025 8: 38pm Chief Complaint Admit Date MS flare up. Nausea/ vomiting/ difficult y [...] LAB WORK June 17, 2025 5:00 am LAB WORK June 24, 2025 5:0 0am headache July 05, 2025 8: 38pm headache, hypertension July 22 9:53pm Reason for Referral Specialty Diagnoses / Procedures Referred By Hillary christie Referred To Contact Cardiology Diagnoses Other specified symptoms and signs involving the circulatory and respiratory systems Cerebrovascular disease, unspecified Procedures Vascular US carotid artery duplex bilateral Kristopher Main MD [address] [place] [address] Referral ID Status Reason Start Date Expiration Date Visits Requested Visits Authorized [id number] Pending Review Perform Procedure 2 03/02/2023 1 1 Additional Source Comments INFORMATION SOURCE (unrecogn ized section and content) DATE CREATED AUTHOR 05/13/2018 [facility] DATE CREATED AUTHOR AUTHOR'S ORGANIZ ATION 05/13/2018 [facility] DATE CREATED AUTHOR AUTHOR'S ORGANIZ ATION 12/13/[address] [facility] DATE CREATED AUTHOR AUTHOR'S ORGANIZ ATION 01/16/2024 [facility] ([place]) DATE CREATED AUTHOR AUTHOR'S ORGANIZ ATION 07/25/2025 [facility] DATE CREATED AUTHOR AUTHOR'S ORGANIZ ATION 07/28/2025 [facility] Goals (unrecognized section and content) Goals [...] Status: Active Member Role Status Dates Dr. Jacinda Benton MD Family Provider Active Dr. Jacinda Benton MD Primary Care Provider Active Team Status: Inactive Member Role Status Dates Dr. Jacinda Benton MD Primary Care Provider, Referring P rovider Active Betsey Lindquist PA, PA Attending Provider Active Team Status: Inactive Member Role Status Dates Dr. Jacinda Benton MD Primary Care Provider, Referring P rovider Active Dr. Kai Jacobson DO Attending Provider Active Team Status: Active Member Role Status Dates Dr. Jacinda Benton MD Primary Care Provider Active Dr. Orlando Jacob MD Attending Provider Active Team Status: Inactive Member Role Status Dates Dr. Jacinda Benton MD Primary Care Provider Active Dr. Orlando Jacob MD Attending Provider Active Team Status: Inactive Member Role Status Dates Dr. Jacinda Benton MD Primary Care Provider Active Dr. Tye Barnett MD Attending Provider Active Team Status: Inactive Member Role Status Dates Dr. Jacinda Benton MD Primary Care Provider Active Dr. Tye Barnett MD Attending Provider, Referring Provider Active Team Status: Inactive Member Role Status Dates Dr. Jacinda Benton MD Primary Care Provide r, Attending Provider, Referring Provider Active Dr. Kristopher Main MD Other Provider Active Dr. Betina Gilliland MD Other Provider Active Team Status: Inactive Member Role Status Dates Dr. Jacinda Benton MD Primary Care Provider Active Betsey Lindquist PA, PA Attending Provider Active Team Status: Inactive Member Role Status Dates Dr. Jacinda Benton MD Primary Care Provider Active Dr. Jeffy Willoughby MD Attending Provider, Emergency Provi kevin Active Team Status: Inactive Member Role Status Dates Dr. Jacinda Benton MD Primary Care Provide r, Attending Provider, Referring Provider Active Team Status: Inactive Member Role Status Dates Dr. Jacinda Benton MD Primary Care Provider Active Dr. Gabriella Simpson DO Emergency Provider Active Team Status: Inactive Member Role Status Dates Dr. Jacinda Benton MD Primary Care Provider Active Dr. Gabriella Simpson DO Attending Provider, Emergency P rovider Active Team Status: Inactive Member Role Status Dates Dr. Jacinda Benton MD Primary Care Provider Active Dr. Jaya Campbell DO Emergency Provider Active Team Status: Inactive Member Role Status Dates Dr. Jacinda Benton MD Primary Care Provider, Referring P rovider Active Dr. Gilles Jasso DO Attending Provider Active Team Status: Inactive Member Role Status Dates Dr. Jacinda Benton MD Primary Care Provider Active Dr. Jaya Campbell DO Attending Provider, Emergency Provide r Active Team Status: Inactive Member Role Status Dates Dr. Jacinda Benton MD Primary Care Provider Active Dr. Gilles Jasso DO Attending Provider, Referring P rovider Active Team Status: Inactive Member Role Status Dates Dr. Jacinda Benton MD Primary Care Provider Active Dr. Jori Garcia MD Attending Provider, Emergency Provider Active Team Status: Active Member Role Status Dates Dr. Jacinda Benton MD Primary Care Provider Active Dr. Gilles Jasso DO Attending Provider, Referring P rovider Active Team Status: Inactive Member Role Status Dates Dr. Jacinda Benton MD Primary Care Provider, Attending P rovider Active Marketing Team Lead Relationship Specialty Start Date End Date Jacinda Benton [address] [place] [phone] PCP - General 06/23/20 Marketing Team Lead Relationship Specialty Start Date End Date Jacinda Benton [address] [place] [phone] PCP - General 06/23/20 Marketing Team Lead Relationship Specialty Start Date End Date Jacinda Benton [address] [place] [phone] PCP - General 06/23/20 Team Status: Inactive Member Role Status Dates Dr. Jacidna Benton MD Primary Care Provider, Referring P rovider Active Dr. Orlando Jacob MD Attending Provider Active Team Status: Inactive Member Role Status Dates Dr. Jacinda Benton MD Primary Care Provider, Referring P rovider Active Katia Chi Attending Provider Active Team Status: Inactive Member Role Status Dates Dr. Jacinda Benton MD Primary Care Provider Active Dr. Yasmani Haynes DO Emergency Provider Active Marketing Team Lead Relationship Specialty Start Date End Date Jacinda Benton [address] [place] [address] PCP - General 06/23/20 Team Status: Inactive Member Role Status Dates Dr. Jacinda Benton MD Primary Care Provider Active Dr. Yasmani Haynes DO Attending Provider, Emergency Pr ovider Active Team Status: Inactive Member Role Status Dates Dr. Jacinda Benton MD Primary Care Provider Active Dr. Kai Jacobson DO Attending Provider, Referring Provider Active Team Status: Active Member Role Status Dates Dr. Jacinda Benton MD Primary Care Provider Active Dr. Michele Kebede MD Emergency Provider Active Dr. Sommer Resendiz MD Admit Provider, Attending Prov ider Active Team Status: Active Member Role Status Dates Dr. Jacinda Benton MD Primary Care Provider Active Dr. Michele Kebede MD Emergency Provider Active Dr. Sommer Resendiz MD Admit Provider, Other Provider Active Dr. Hi Garcia MD Attending Provider, Other Provi kevin Active Team Status: Inactive Member Role Status Dates Dr. Jacinda Benton MD Primary Care Provider Active Dr. Michele Kebede MD Emergency Provider Active Dr. Sommer Resendiz MD Admit Provider, Other Provider Active Dr. Hi Garcia MD Attending Provider Active Team Status: Active Member Role Status Dates Dr. Jacinda Benton MD Primary Care Provider Active Dr. Michele Kebede MD Emergency Provider Active Dr. Sommer Resendiz MD Admit Provider, Other Provider Active Dr. Sachin Murillo MD Attending Provider, Other Provider Active Team Status: Active Member Role Status Dates Dr. Jacinda Benton MD Primary Care Provider Active Dr. Dangelo Gallardo MD Attending Provider Active Team Status: Inactive Member Role Status Dates Dr. Jacinda Benton MD Primary Care Provider Active Dr. Michele Kebede MD Emergency Provider Active Dr. Sommer Resendiz MD Admit Provider, Other Provider Active Dr. Sachin Murillo MD Attending Provider Active Team Status: Inactive Member Role Status Dates Dr. Jacinda Benton MD Primary Care Provider Active Dr. Ramírez Onofre MD Emergency Provider Active Team Status: Active Member Role Status Dates Dr. Jacinda Benton MD Primary Care Provider Active Dr. Gabriella Simpson DO Emergency Provider Active Dr. Roman Mckeon MD Admit Provider, At tending Provider, Other Provider Active Team Status: Inactive Member Role Status Dates Dr. Jacinda Benton MD Primary Care Provider Active Dr. Ramírez Onofre MD Attending Provider, Emergency Pro vider Active Team Status: Active Member Role Status Dates Dr. Jacinda Benton MD Primary Care Provider Active Dr. Gabriella Simpson DO Emergency Provider Active Dr. Roman Mckeon MD Admit Provider, Attending Provid er Active Team Status: Active Member Role Status Dates Dr. Jacinda Benton MD Primary Care Provider Active Dr. [...] Status: Active Member Role Status Dates Dr. Jacinda Benton MD Primary Care Provider Active Dr. [...] Silvino Schmidt MD Other Provider Active Dr. Riam Riggins MD Other Provider Active Dr. Sarkis [...] Status: Active Member Role Status Dates Dr. Jacinda Benton MD Primary Care Provider Active Dr. [...] Status: Active Member Role Status Dates Dr. Jacinda Benton MD Primary Care Provider Active Dr. [...] Status: Active Member Role Status Dates Dr. Jacinda Benton MD Primary Care Provider Active Dr. [...] Active Deepika Graham MD Other Provider Active Mauriliobritt Gar[place] , [place] Other Provider Active Phil [...] Status: Inactive Member Role Status Dates Dr. Jacinda Benton MD Primary Care Provider Active Dr. [...] Active Keyona Davidson MD Other Provider Active Marketing Team Lead Relationship Specialty Start Date End Date Jacinda Benton [address] [place] [phone] PCP - General 06/23/20 Team Status: Active Member Role Status Dates Dr. Jacinda Benton MD Primary Care Provider Active Dr. [...] Status: Inactive Member Role Status Dates Dr. Jacinda Benton MD Primary Care Provider Active Betsey Lindquist PA, PA Attending Provider, Referr ing Provider Active Team Status: Active Member Role Status Dates Dr. Jacinda Benton MD Primary Care Provider Active SHANE SABA Attending Provider, Referring Provide r Active Team Status: Inactive Member Role Status Dates Dr. Jacinda Benton MD Primary Care Provider Active Dr. Jori Garcia MD Emergency Provider Active Team Status: Active Member Role Status Dates Dr. Jacinda Benton MD Primary Care Provider, Attending P gerard Active Team Status: Active Member Role Status Dates Dr. Jacinda Benton MD Primary Care Provider Active Dr. Jeffy Willoughby MD Emergency Provider Active Dr. Roman Mckeon MD Attending Provider Active Team Status: Active Member Role Status Dates Dr. Jacinda Benton MD Primary Care Provider Active Dr. Jeffy Willoughby MD Emergency Provider Active Dr. Roman Mckeon MD Admit Provider, Attending Provid er Active Team Status: Active Member Role Status Dates Dr. Jacinda Benton MD Primary Care Provider Active Dr. Jeffy Willoughby MD Emergency Provider Active Dr. Roman Mckeon MD Admit Provider, Other Provider A ctive Dr. Kevin Gonzalez DO Attending Provider Active Team Status: Active Member Role Status Dates Dr. Jacinda Benton MD Primary Care Provider Active Dr. Kevin Gonzalez DO Attending Provider Active Team Status: Active Member Role Status Dates Dr. Jacinda Benton MD Primary Care Provider Active Dr. Jeffy Willoughby MD Emergency Provider Active Dr. Roman Mckeon MD Admit Provider, Attending Provid er, Other Provider Active Team Status: Active Member Role Status Dates Dr. Jacinda Benton MD Primary Care Provider Active Dr. Jeffy Willoughby MD Emergency Provider Active Dr. Roman Mckeon MD Admit Provider, Other Provider A ctive Dr. Eva Mortensen DO Attending Provider, Other Provide r Active Team Status: Inactive Member Role Status Dates Dr. Jacinda Benton MD Primary Care Provider Active Dr. Jeffy Willoughby MD Emergency Provider Active Dr. Roman Mckeon MD Admit Provider, Other Provider A ctive Dr. Eva Mortensen DO Attending Provider Active Team Status: Active Member Role Status Dates Dr. Jacinda Benton MD Primary Care Provider Active Dr. Jeffy Willoughby MD Emergency Provider Active Dr. Roman Mckeon MD Admit Provider, Re ferring Provider, Other Provider Active Dr. Kevin Gonzalez DO Attending Provider Active Team Status: Active Member Role Status Dates Dr. Jacinda Benton MD Primary Care Provider Active Dr. Kevin Gonzalez DO Attending Provider Active Dr. Roman Mckeon MD Referring Provider Active Team Status: Active Member Role Status Dates Dr. Jacinda Benton MD Primary Care Provider Active Dr. Kevin Gonzalez DO Attending Provider Active Dr. Eva Mortensen DO Referring Provider Active Team Status: Active Member Role Status Dates Dr. Jacinda Benton MD Primary Care Provider Active Dr. Bhavik Smiley MD Attending Provider Active Dr. Roman Mckeon MD Referring Provider Active Team Status: Active Member Role Status Dates Dr. Jacinda Benton MD Primary Care Provider Active Dr. Bhavik Smiley MD Attending Provider, Referring Provider Active Marketing Team Lead Relationship Specialty Start Date End Date Jacinda Benton MD [address] [place] [id number] PCP - General Family Medicine 03/12/19 Tye Barnett MD [address] [place] [address] Vascular Surgery 12/22/17 Marketing Team Lead Relationship Specialty Start Date End Date Jacinda Benton [address] [facility] [address] [place] [phone] PCP - General 06/23/20 Marketing Team Lead Relationship Specialty Start Date End Date Jacinda Benton [address] [facility] [address] [place] [address] PCP - General 06/23/20 Marketing Team Lead Relationship Specialty Start Date End Date Alex Bentonic Danielle [address] [facility] [address] [place] [address] PCP - General 06/23/20 Marketing Team Lead Relationship Specialty Start Date End Date Alex Bentonic Danielle [address] [facility] [address] [place] [phone] PCP - General 06/23/20 Team Status: Active Member Role Status Dates Dr. Jacinda Benton MD Primary Care Provider Active Team Status: Inactive Member Role Status Dates Dr. Jacinda Benton MD Primary Care Provider Active Start: [...] Status: Active Member Role Status Dates Dr. Jacinda eBnton MD Primary Care Provider Active Start: December 09, 2024 Dr. Kofi Weiner MD Attending Provider Activ e Start: December 09, 2024 Dr. Trina Tyler MD Referring Provider Active Start: December 09, 2024 Team Status: Active Member Role Status Dates Dr. Jacinda Benton MD Primary Care Provider Active Start: [...] Status: Active Member Role Status Dates Dr. Jacinda Benton MD Primary Care Provider Active Start: [...] Status: Active Member Role Status Dates Dr. Jacinda Benton MD Primary Care Provider Active Start: [...] Status: Inactive Member Role Status Dates Dr. Jacinda Benton MD Primary Care Provider Active Start: December 17, 2024 End: December 17, 2024 Dr. Jeffy Willoughby MD Attending Provider Active Sta rt: December 17, 2024 End: December 17, 2024 Dr. Jeffy Willoughby MD Emergency Provider Active Sta rt: December 17, 2024 End: December 17, 2024 Team Status: Inactive Member Role Status Dates Dr. Jacinda Benton MD Primary Care Provider Active Start: December 19, 2024 End: December 19, 2024 Dr. Jacinda Benton MD Referring Provider Active St art: December 19, 2024 End: December 19, 2024 Betsey Lindquist PA, PA Attending Provider Active Start: December 19, 2024 End: December 19, 2024 Team Status: Inactive Member Role Status Dates Dr. Jacinda Benton MD Primary Care Provider Active Start: December 24, 2024 End: December 24, 2024 Dr. Jacinda Benton MD Referring Provider Active St art: December 24, 2024 End: December 24, 2024 STEPHANY Anderson Attending Provider Active Start: December 24, 2024 End: December 24, 2024 Team Status: Inactive Member Role Status Dates Dr. Jacinda Benton MD Primary Care Provider Active Start: [...] Status: Active Member Role Status Dates Dr. Jacinda Benton MD Primary Care Provider Active Start: [...] Status: Active Member Role Status Dates Dr. Jacinda Benton MD Primary Care Provider Active Start: [...] Status: Active Member Role Status Dates Dr. Jacinda Benton MD Primary Care Provider Active Start: January 12, 2025 Dr. Kofi Weiner MD Attending Provider Activ e Start: January 12, 2025 Team Status: Active Member Role Status Dates Dr. Jacinda Benton MD Primary Care Provider Active Start: [...] Status: Active Member Role Status Dates Dr. Jacinda Benton MD Primary Care Provider Active Start: [...] Status: Active Member Role Status Dates Dr. Jacinda Benton MD Primary Care Provider Active Start: [...] Status: Inactive Member Role Status Dates Dr. Jacinda Benton MD Primary Care Provider Active Start: January 15, 2025 End: January 15, 2025 Dr. Jacinda Benton MD Attending Provider Active St art: January 15, 2025 End: January 15, 2025 Dr. Jacinda Benton MD Referring Provider Active St art: January 15, 2025 End: January 15, 2025 Team Status: Inactive Member Role Status Dates Dr. Jacinda Benton MD Primary Care Provider Active Start: February 20, 2025 End: February 20, 2025 Dr. Jacinda Benton MD Referring Provider Active St art: February 20, 2025 End: February 20, 2025 Betsey PEÑA, PA Attending Provider Active Start: February 20, 2025 End: February 20, 2025 Team Status: Inactive Member Role Status Dates Dr. Jacinda Benton MD Primary Care Provider Active Start: [...] Status: Active Member Role Status Dates Dr. Jacinda Benton MD Primary Care Provider Active Start: March 19, 2025 Dr. Orlando Jacob MD Attending Provider Active S tart: March 19, 2025 Team Status: Inactive Member Role Status Dates Dr. Jacinda Benton MD Primary Care Provider Active Start: April 02, 2025 End: April 02, 2025 Nuno Grider MD Referring Provider Active Star t: April 02, 2025 End: April 02, 2025 Nuno Grdier MD Emergency Provider Active Star t: April 02, 2025 End: April 02, 2025 Marketing Team Lead Relationship Specialty Start Date End Date Jacinda Bentno [address] [facility] [address] [place] [id number] PCP - General 06/23/20 Team Status: Inactive Member Role Status Dates Dr. Jacinda Benton MD Primary Care Provider Active Start: [...] Status: Inactive Member Role Status Dates Dr. Jacinda Benton MD Primary Care Provider Active Start: April 11, 2025 End: April 11, 2025 Dr. Ramírez Onofre MD Attending Provider Active S tart: April 11, 2025 End: April 11, 2025 Dr. Ramírez Onofre MD Emergency Provider Active S tart: April 11, 2025 End: April 11, 2025 Team Status: Inactive Member Role Status Dates Dr. Jacinda Benton MD Primary Care Provider Active Start: April 17, 2025 End: April 18, 2025 Dr. Yasmani Haynes DO Referring Provider Active Start: April 17, 2025 End: April 18, 2025 Dr. Yasmani Haynes DO Emergency Provider Active Start: April 17, 2025 End: April 18, 2025 Team Status: Active Member Role Status Dates Dr. Jacinda Benton MD Primary Care Provider Active Start: April 18, 2025 Dr. Jeffy Willoughby MD Emergency Provider Active Sta rt: April 18, 2025 Dr. Sachin Murillo MD Admit Provider Active Start: April 18, 2025 Dr. Sachin Murillo MD Attending Provider Active Start: April 18, 2025 Dr. Sachin Murillo MD Referring Provider Active Start: April 18, 2025 Team Status: Inactive Member Role Status Dates Dr. Jacinda Benton MD Primary Care Provider Active Start: [...] Status: Active Member Role Status Dates Dr. Jacinda Benton MD Primary Care Provider Active Start: April 18, 2025 Dr. Jeffy Willoughby MD Emergency Provider Active Sta rt: April 18, 2025 Dr. Sachin Murillo MD Admit Provider Active Start: April 18, 2025 Dr. Sachin Murillo MD Attending Provider Active Start: April 18, 2025 Dr. Sachin Murillo MD Other Provider Active Start: April 18, 2025 Team Status: Active Member Role Status Dates Dr. Jacinda Benton MD Primary Care Provider Active Start: [...] Status: Active Member Role Status Dates Dr. Jacinda Benton MD Primary Care Provider Active Start: [...] Status: Active Member Role Status Dates Dr. Jacinda Benton MD Primary Care Provider Active Start: April 20, 2025 Dr. Jeffy Willoughby MD Emergency Provider Active Sta rt: April 20, 2025 Dr. Sachin Murillo MD Admit Provider Active Start: April 20, 2025 Dr. Sachin Murillo MD Referring Provider Active Start: April 20, 2025 Dr. Sachni Murillo MD Other Provider Active Start: April 20, 2025 Dr. Roman Mckeon MD Other Provider Active Star t: April 20, 2025 Dr. Kevin Gonzalez DO Attending Provider Active Start: April 20, 2025 Team Status: Active Member Role Status Dates Dr. Jacinda Benton MD Primary Care Provider Active Start: [...] Status: Active Member Role Status Dates Dr. Jacinda Benton MD Primary Care Provider Active Start: [...] Status: Active Member Role Status Dates Dr. Jacinda Benton MD Primary Care Provider Active Start: [...] Status: Active Member Role Status Dates Dr. Jacinda Benton MD Primary Care Provider Active Start: [...] Status: Inactive Member Role Status Dates Dr. Jacinda Benton MD Primary Care Provider Active Start: [...] Status: Active Member Role Status Dates Dr. Jacinda Benton MD Primary Care Provider Active Start: [...] Status: Active Member Role Status Dates Dr. Jacinda Benton MD Primary Care Provider Active Start: [...] Status: Active Member Role Status Dates Dr. Jacinda Benton MD Primary Care Provider Active Start: [...] Status: Active Member Role Status Dates Dr. Jacinda Benton MD Primary Care Provider Active Start: [...] Status: Inactive Member Role Status Dates Dr. Jacinda Benton MD Primary Care Provider Active Start: May 06, 2025 End: May 06, 2025 Dr. Jacinda Benton MD Referring Provider Active St art: May 06, 2025 End: May 06, 2025 STEPHANY Nunez Attending Provider Active Start: May 06, 2025 End: May 06, 2025 Marketing Team Lead Relationship Specialty Start Date End Date Jacinda Benton [address] [place] [id number] PCP - General 06/23/20 Team Status: Active Member Role/Relationship Status Dates Dr. Jacinda Benton MD Primary Care Provider Active Team Status: Inactive Member Role/Relationship Status Dates Dr. Jacinda Benton MD Primary Care Provider Active Start: February 20, 2025 End: February 20, 2025 Dr. Jacinda Benton MD Referring Provider Active St art: February 20, 2025 End: February 20, 2025 Betsey Lindquist PA, PA Attending Provider Active Start: February 20, 2025 End: February 20, 2025 Team Status: Inactive Member Role/Relationship Status Dates Dr. Jacinda Benton MD Primary Care Provider Active Start: [...] Status: Active Member Role/Relationship Status Dates Dr. Jacinda Benton MD Primary Care Provider Active Start: March 19, 2025 Dr. Orlando Jacob MD Attending Provider Active S tart: March 19, 2025 Team Status: Inactive Member Role/Relationship Status Dates Dr. Jacinda Benton MD Primary Care Provider Active Start: [...] Status: Inactive Member Role/Relationship Status Dates Dr. Jacinda Benton MD Primary Care Provider Active Start: April 11, 2025 End: April 11, 2025 Dr. Ramírez Onofre MD Attending Provider Active S tart: April 11, 2025 End: April 11, 2025 Dr. Ramírez Onfore MD Emergency Provider Active S tart: April 11, 2025 End: April 11, 2025 Team Status: Inactive Member Role/Relationship Status Dates Dr. Jacinda Benton MD Primary Care Provider Active Start: [...] Status: Inactive Member Role/Relationship Status Dates Dr. Jacinda Benton MD Primary Care Provider Active Start: [...] Status: Active Member Role/Relationship Status Dates Dr. Jacinda Benton MD Primary Care Provider Active Start: April 18, 2025 Dr. Jeffy Willoughby MD Emergency Provider Active Sta rt: April 18, 2025 Dr. Sachin Murillo MD Admit Provider Active Start: April 18, 2025 Dr. Sachin Murillo MD Attending Provider Active Start: April 18, 2025 Dr. Sachin Murillo MD Other Provider Active Start: April 18, 2025 Team Status: Active Member Role/Relationship Status Dates Dr. Jacinda Benton MD Primary Care Provider Active Start: [...] Status: Active Member Role/Relationship Status Dates Dr. Jacinda Benton MD Primary Care Provider Active Start: [...] Status: Active Member Role/Relationship Status Dates Dr. Jacinda Benton MD Primary Care Provider Active Start: [...] Status: Active Member Role/Relationship Status Dates Dr. Jacinda Benton MD Primary Care Provider Active Start: [...] Status: Active Member Role/Relationship Status Dates Dr. Jacinda Benton MD Primary Care Provider Active Start: [...] Status: Active Member Role/Relationship Status Dates Dr. Jacinda Benton MD Primary Care Provider Active Start: [...] Status: Active Member Role/Relationship Status Dates Dr. Jacinda Benton MD Primary Care Provider Active Start: [...] Status: Inactive Member Role/Relationship Status Dates Dr. Jacinda Benton MD Primary Care Provider Active Start: May 06, 2025 End: May 06, 2025 Dr. Jacinda Benton MD Referring Provider Active St art: May 06, 2025 End: May 06, 2025 STEPHANY Nunez Attending Provider Active Start: May 06, 2025 End: May 06, 2025 Team Status: Inactive Member Role/Relationship Status Dates Dr. Jacinda Benton MD Primary Care Provider Active Start: May 15, 2025 End: May 15, 2025 Dr. Jacinda Benton MD Other Provider Active Start: May 15, 2025 End: May 15, 2025 Dr. Tye Barnett MD Attending Provider Active Start: May 15, 2025 End: May 15, 2025 Dr. Tye Barnett MD Referring Provider Active Start: May 15, 2025 End: May 15, 2025 Team Status: Inactive Member Role/Relationship Status Dates Dr. Jacinda Benton MD Primary Care Provider Active Start: May 19, 2025 End: May 19, 2025 Dr. Yasmani Haynes DO Emergency Provider Active Start: May 19, 2025 End: May 19, 2025 Team Status: Inactive Member Role/Relationship Status Dates Dr. Jacinda Benton MD Primary Care Provider Active Start: May 20, 2025 End: May 20, 2025 STEPHANY Harrington Attending Provider Active Start: May 20, 2025 End: May 20, 2025 STEPHANY Harrington Referring Provider Active Start: May 20, 2025 End: May 20, 2025 Team Status: Inactive Member Role/Relationship Status Dates Dr. Jacinda Benton MD Primary Care Provider Active Start: May 19, 2025 End: May 19, 2025 Dr. Yasmani Haynes DO Attending Provider Active Start: May 19, 2025 End: May 19, 2025 Dr. Yasmani Haynes DO Emergency Provider Active Start: May 19, 2025 End: May 19, 2025 Team Status: Active Member Role/Relationship Status Dates Dr. Jacinda Benton MD Primary Care Provider Active Start: June 03, 2025 Dr. Yasmani Haynes DO Emergency Provider Active Start: June 03, 2025 Dr. Roman Mckeon MD Admit Provider Active Star t: June 03, 2025 Dr. Roman Mckeon MD Attending Provider Active Start: June 03, 2025 Team Status: Inactive Member Role/Relationship Status Dates Dr. Jacinda Benton MD Primary Care Provider Active Start: [...] Status: Active Member Role/Relationship Status Dates Dr. Jacinda Benton MD Primary Care Provider Active Start: [...] Status: Active Member Role/Relationship Status Dates Dr. Jacinda Benton MD Primary Care Provider Active Start: [...] Status: Active Member Role/Relationship Status Dates Dr. Jacinda Benton MD Primary Care Provider Active Start: [...] Status: Active Member Role/Relationship Status Dates Dr. Jacinda Benton MD Primary Care Provider Active Start: [...] Status: Active Member Role/Relationship Status Dates Dr. Jacinda Benton MD Primary Care Provider Active Start: [...] Status: Active Member Role/Relationship Status Dates Dr. Jacinda Benton MD Primary Care Provider Active Start: [...] Status: Active Member Role/Relationship Status Dates Dr. Jacinad Benton MD Primary Care Provider Active Start: [...] Status: Active Member Role/Relationship Status Dates Dr. Jacinda Benton MD Primary Care Provider Active Start: [...] Status: Active Member Role/Relationship Status Dates Dr. Jacinda Benton MD Primary Care Provider Active Start: [...] Status: Active Member Role/Relationship Status Dates Dr. Jacinda Benton MD Primary Care Provider Active Start: June 09, 2025 Dr. Yasmani Andes , DO Emergency Provider Active Start: June 09, 2025 Dr. Roman Mckeon MD Admit Provider Active Star t: June 09, 2025 Dr. Roman Mckeon MD Other Provider Active Star t: June 09, 2025 Dr. Dex Worrell , Attending Provider Active Start: June 09, 2025 Dr. Dex Worrell , DO Other Provider Active S tart: June 09, 2025 Team Status: Active Member Role/Relationship Status Dates Dr. Jacinda Benton MD Primary Care Provider Active Start: June 09, 2025 Dr. Yasmani Haynes , Emergency Provider Active Start: June 09, 2025 Dr. Roman Mckeon MD Admit Provider Active Star t: June 09, 2025 Dr. Rmoan Mckeon MD Other Provider Active Star t: June 09, 2025 Dr. Dex Worrell , Other Provider Active S tart: June 09, 2025 Dr. Kevin Gonzalez , Attending Provider Active Start: June 09, 2025 Team Status: Active Member Role/Relationship Status Dates Dr. Jacinda Benton MD Primary Care Provider Active Start: June 10, 2025 Lucas CHAWLA MD Attending Provider Active Start: June 10, 2025 Team Status: Inactive Member Role/Relationship Status Dates Dr. Jacinda Benton MD Primary Care Provider Active Start: [...] Status: Active Member Role/Relationship Status Dates Dr. Jacinda Benton MD Primary Care Provider Active Start: March 19, 2025 Dr. Orlando Jacob MD Attending Provider Active S tart: March 19, 2025 Team Status: Inactive Member Role/Relationship Status Dates Dr. Jacinda Benton MD Primary Care Provider Active Start: [...] Status: Inactive Member Role/Relationship Status Dates Dr. Jacinda Benton MD Primary Care Provider Active Start: April 11, 2025 End: April 11, 2025 Dr. Ramírez Onofre MD Attending Provider Active S tart: April 11, 2025 End: April 11, 2025 Dr. Ramírez Onofre MD Emergency Provider Active S tart: April 11, 2025 End: April 11, 2025 Team Status: Inactive Member Role/Relationship Status Dates Dr. Jacinda Benton MD Primary Care Provider Active Start: April 17, 2025 End: April 18, 2025 Dr. Yasmani Haynes , Attending Provider Active Start: April 17, 2025 End: April 18, 2025 Dr. Yasmani Haynes DO Referring Provider Active Start: April 17, 2025 End: April 18, 2025 Dr. Yasmani Haynes DO Emergency Provider Active Start: April 17, 2025 End: April 18, 2025 Team Status: Inactive Member Role/Relationship Status Dates Dr. Jacinda Benton MD Primary Care Provider Active Start: [...] Status: Active Member Role/Relationship Status Dates Dr. Jacinda Benton MD Primary Care Provider Active Start: April 18, 2025 Dr. Jeffy Willoughby MD Emergency Provider Active Sta rt: April 18, 2025 Dr. Sachin Murillo MD Admit Provider Active Start: April 18, 2025 Dr. Sachin Murillo MD Attending Provider Active Start: April 18, 2025 Dr. Sachin Murillo MD Other Provider Active Start: April 18, 2025 Team Status: Active Member Role/Relationship Status Dates Dr. Jacinda Benton MD Primary Care Provider Active Start: [...] Status: Active Member Role/Relationship Status Dates Dr. Jacinda Benton MD Primary Care Provider Active Start: [...] Status: Active Member Role/Relationship Status Dates Dr. Jacinda Benton MD Primary Care Provider Active Start: [...] Status: Active Member Role/Relationship Status Dates Dr. Jacinda Benton MD Primary Care Provider Active Start: [...] Status: Active Member Role/Relationship Status Dates Dr. Jacinda Benton MD Primary Care Provider Active Start: [...] Status: Active Member Role/Relationship Status Dates Dr. Jacinda Benton MD Primary Care Provider Active Start: [...] Status: Active Member Role/Relationship Status Dates Dr. Jacinda Benton MD Primary Care Provider Active Start: [...] Status: Inactive Member Role/Relationship Status Dates Dr. Jacinda Benton MD Primary Care Provider Active Start: May 06, 2025 End: May 06, 2025 Dr. Jacinda Benton MD Referring Provider Active St art: May 06, 2025 End: May 06, 2025 TANYA NunezC Attending Provider Active Start: May 06, 2025 End: May 06, 2025 Team Status: Inactive Member Role/Relationship Status Dates Dr. Jacinda Benton MD Primary Care Provider Active Start: May 15, 2025 End: May 15, 2025 Dr. Jacinda Benton MD Other Provider Active Start: May 15, 2025 End: May 15, 2025 Dr. Tye Barnett MD Attending Provider Active Start: May 15, 2025 End: May 15, 2025 Dr. Tye Barnett MD Referring Provider Active Start: May 15, 2025 End: May 15, 2025 Team Status: Inactive Member Role/Relationship Status Dates Dr. Jacnida Benton MD Primary Care Provider Active Start: May 19, 2025 End: May 19, 2025 Dr. Yasmani Haynes DO Attending Provider Active Start: May 19, 2025 End: May 19, 2025 Dr. Yasmani Haynes DO Emergency Provider Active Start: May 19, 2025 End: May 19, 2025 Team Status: Inactive Member Role/Relationship Status Dates Dr. Jacinda Benton MD Primary Care Provider Active Start: May 20, 2025 End: May 20, 2025 STEPHANY Harrington Attending Provider Active Start: May 20, 2025 End: May 20, 2025 STEPHANY Harrington Referring Provider Active Start: May 20, 2025 End: May 20, 2025 Team Status: Inactive Member Role/Relationship Status Dates Dr. Jacinda Benton MD Primary Care Provider Active Start: [...] Status: Active Member Role/Relationship Status Dates Dr. Jacinda Benton MD Primary Care Provider Active Start: [...] Status: Active Member Role/Relationship Status Dates Dr. Jacinda Benton MD Primary Care Provider Active Start: [...] Status: Active Member Role/Relationship Status Dates Dr. Jacinda Benton MD Primary Care Provider Active Start: [...] Status: Active Member Role/Relationship Status Dates Dr. Jacinda Benton MD Primary Care Provider Active Start: [...] Status: Active Member Role/Relationship Status Dates Dr. Jacinda Benton MD Primary Care Provider Active Start: [...] Status: Active Member Role/Relationship Status Dates Dr. Jacinda Benton MD Primary Care Provider Active Start: [...] Status: Active Member Role/Relationship Status Dates Dr. Jacinda Benton MD Primary Care Provider Active Start: [...] Status: Active Member Role/Relationship Status Dates Dr. Jacinda Benton MD Primary Care Provider Active Start: [...] Status: Active Member Role/Relationship Status Dates Dr. Jacinda Benton MD Primary Care Provider Active Start: [...] Status: Active Member Role/Relationship Status Dates Dr. Jacinda Benton MD Primary Care Provider Active Start: [...] Status: Active Member Role/Relationship Status Dates Dr. Jacinda Benton MD Primary Care Provider Active Start: [...] Status: Active Member Role/Relationship Status Dates Dr. Jacinda Benton MD Primary Care Provider Active Start: June 10, 2025 Lucas CHAWLA MD Attending Provider Active Start: June 10, 2025 Team Status: Inactive Member Role/Relationship Status Dates Dr. Jacinda Benton MD Primary Care Provider Active Start: June 16, 2025 End: June 16, 2025 Dr. Lucas yWatt MD Attending Provider Active Start: June 16, 2025 End: June 16, 2025 Team Status: Active Member Role/Relationship Status Dates Dr. Jacinda Benton MD Primary Care Provider Active Start: June 17, 2025 Lucas CHAWLA MD Attending Provider Active Start: June 17, 2025 Team Status: Active Member Role/Relationship Status Dates Dr. Jacinda Benton MD Primary Care Provider Active Start: June 24, 2025 Lucas CHAWLA MD Attending Provider Active Start: June 24, 2025 Team Status: Inactive Member Role/Relationship Status Dates Dr. Jacinda Benton MD Primary Care Provider Active Start: June 12, 2025 End: June 12, 2025 Karen Dias FRIT MAKER, FRIT MAKER-C Attending Provider Active Start: June 12, 2025 End: June 12, 2025 Team Status: Inactive Member Role/Relationship Status Dates Dr. Jacinda Benton MD Primary Care Provider Active Start: June 16, 2025 End: June 16, 2025 Dr. Lucas Wyatt MD Attending Provider Active Start: June 16, 2025 End: June 16, 2025 Team Status: Active Member Role/Relationship Status Dates Dr. Jacinda Bentno MD Primary Care Provider Active Start: June 17, 2025 Lucas CHAWLA MD Attending Provider Active Start: June 17, 2025 Team Status: Active Member Role/Relationship Status Dates Dr. Jacinda Benton MD Primary Care Provider Active Start: June 24, 2025 Lucas CHAWLA MD Attending Provider Active Start: June 24, 2025 Team Status: Inactive Member Role/Relationship Status Dates Dr. Jacinda Benton MD Primary Care Provider Active Start: June 10, 2025 End: June 10, 2025 Karen Dias FRIT MAKER, FRIT MAKER-C Attending Provider Active Start: June 10, 2025 End: June 10, 2025 Team Status: Inactive Member Role/Relationship Status Dates Dr. Jacinda Benton MD Primary Care Provider Active Start: June 12, 2025 End: June 12, 2025 Karen Dias FRIT MAKER, FRIT MAKER-C Attending Provider Active Start: June 12, 2025 End: June 12, 2025 Team Status: Inactive Member Role/Relationship Status Dates Dr. Jacinda Benton MD Primary Care Provider Active Start: June 16, 2025 End: June 16, 2025 Dr. Lucas Wyatt MD Attending Provider Active Start: June 16, 2025 End: June 16, 2025 Team Status: Active Member Role/Relationship Status Dates Dr. Jacinda Benton MD Primary Care Provider Active Start: June 17, 2025 Lucas CHAWLA MD Attending Provider Active Start: June 17, 2025 Team Status: Active Member Role/Relationship Status Dates Dr. Jacinda Benton MD Primary Care Provider Active Start: June 24, 2025 Lucas CHAWLA MD Attending Provider Active Start: June 24, 2025 Team Status: Inactive Member Role/Relationship Status Dates Dr. Jacinda Benton MD Primary Care Provider Active Start: July 05, 2025 End: July 05, 2025 Dr. Jaya Campbell DO Emergency Provider Active Start : July 05, 2025 End: July 05, 2025 Team Status: Inactive Member Role/Relationship Status Dates Dr. Jacinda Benton MD Primary Care Provider Active Start: [...] Status: Inactive Member Role/Relationship Status Dates Dr. Jacinda Benton MD Primary Care Provider Active Start: April 11, 2025 End: April 11, 2025 Dr. Ramírez Onofre MD Attending Provider Active S tart: April 11, 2025 End: April 11, 2025 Dr. Ramírez Onofre MD Emergency Provider Active S tart: April 11, 2025 End: April 11, 2025 Team Status: Inactive Member Role/Relationship Status Dates Dr. Jacinda Benton MD Primary Care Provider Active Start: [...] Status: Inactive Member Role/Relationship Status Dates Dr. Jacinda Benton MD Primary Care Provider Active Start: [...] Status: Active Member Role/Relationship Status Dates Dr. Jacinda Benton MD Primary Care Provider Active Start: April 18, 2025 Dr. Jeffy Willoughby MD Emergency Provider Active Sta rt: April 18, 2025 Dr. Sachin Murillo MD Admit Provider Active Start: April 18, 2025 Dr. Sachin Murillo MD Attending Provider Active Start: April 18, 2025 Dr. Sachin Murillo MD Other Provider Active Start: April 18, 2025 Team Status: Active Member Role/Relationship Status Dates Dr. Jacinda Benton MD Primary Care Provider Active Start: April 19, 2025 Dr. Jeffy Willoughby MD Emergency Provider Active Sta rt: April 19, 2025 Dr. Sachin Murlilo MD Admit Provider Active Start: April 19, 2025 Dr. Sachin Murillo MD Other Provider Active Start: April 19, 2025 Dr. Roman Mckeon MD Attending Provider Active Start: April 19, 2025 Dr. Roman Mckeon MD Other Provider Active Star t: April 19, 2025 Team Status: Active Member Role/Relationship Status Dates Dr. Jacinda Benton MD Primary Care Provider Active Start: [...] Status: Active Member Role/Relationship Status Dates Dr. Jacinda Benton MD Primary Care Provider Active Start: [...] Status: Active Member Role/Relationship Status Dates Dr. Jacinda Benton MD Primary Care Provider Active Start: [...] Status: Active Member Role/Relationship Status Dates Dr. Jacinda Benton MD Primary Care Provider Active Start: [...] Status: Active Member Role/Relationship Status Dates Dr. Jacinda Benton MD Primary Care Provider Active Start: [...] Status: Active Member Role/Relationship Status Dates Dr. Jacinda Benton MD Primary Care Provider Active Start: [...] Status: Inactive Member Role/Relationship Status Dates Dr. Jacinda Benton MD Primary Care Provider Active Start: May 06, 2025 End: May 06, 2025 Dr. Jacinda Benton MD Referring Provider Active St art: May 06, 2025 End: May 06, 2025 STEPHANY Nunez Attending Provider Active Start: May 06, 2025 End: May 06, 2025 Team Status: Inactive Member Role/Relationship Status Dates Dr. Jacinda Benton MD Primary Care Provider Active Start: May 15, 2025 End: May 15, 2025 Dr. Jacinda Benton MD Other Provider Active Start: May 15, 2025 End: May 15, 2025 Dr. Tye Barnett MD Attending Provider Active Start: May 15, 2025 End: May 15, 2025 Dr. Tye Barnett MD Referring Provider Active Start: May 15, 2025 End: May 15, 2025 Team Status: Inactive Member Role/Relationship Status Dates Dr. Jacinda Benton MD Primary Care Provider Active Start: May 19, 2025 End: May 19, 2025 Dr. Yasmani Haynes DO Attending Provider Active Start: May 19, 2025 End: May 19, 2025 Dr. Yasmani Haynes DO Emergency Provider Active Start: May 19, 2025 End: May 19, 2025 Team Status: Inactive Member Role/Relationship Status Dates Dr. Jacinda Benton MD Primary Care Provider Active Start: May 20, 2025 End: May 20, 2025 Lizz Lynn NP-C Attending Provider Active Start: May 20, 2025 End: May 20, 2025 STEPHANY Harrington Referring Provider Active Start: May 20, 2025 End: May 20, 2025 Team Status: Inactive Member Role/Relationship Status Dates Dr. Jacinda Benton MD Primary Care Provider Active Start: [...] Status: Active Member Role/Relationship Status Dates Dr. Jacinda Benton MD Primary Care Provider Active Start: [...] Status: Active Member Role/Relationship Status Dates Dr. Jacinda Benton MD Primary Care Provider Active Start: [...] Status: Active Member Role/Relationship Status Dates Dr. Jacinda Benton MD Primary Care Provider Active Start: [...] Status: Active Member Role/Relationship Status Dates Dr. Jacinda Benton MD Primary Care Provider Active Start: [...] Status: Active Member Role/Relationship Status Dates Dr. Jacinda Benton MD Primary Care Provider Active Start: [...] Status: Active Member Role/Relationship Status Dates Dr. Jacinda Benton MD Primary Care Provider Active Start: [...] Status: Active Member Role/Relationship Status Dates Dr. Jacinda Benton MD Primary Care Provider Active Start: [...] Status: Active Member Role/Relationship Status Dates Dr. Jacinda Benton MD Primary Care Provider Active Start: [...] Status: Active Member Role/Relationship Status Dates Dr. Jacinda Benton MD Primary Care Provider Active Start: [...] Status: Active Member Role/Relationship Status Dates Dr. Jacinda Benton MD Primary Care Provider Active Start: [...] Status: Active Member Role/Relationship Status Dates Dr. Jacinda Benton MD Primary Care Provider Active Start: June 09, 2025 Dr. Yasmani Haynes DO Emergency Provider Active Start: June 09, 2025 Dr. Roman Mckeon MD Admit Provider Active Star t: June 09, 2025 Dr. Roman Mckeon MD Other Provider Active Star t: June 09, 2025 Dr. Dex Worrell DO Referring Provider Active Start: June 09, 2025 Dr. Dex Worrell DO Other Provider Active S tart: June 09, 2025 Dr. Kevin Gonzalez DO Attending Provider Active Start: June 09, 2025 Team Status: Active Member Role/Relationship Status Dates Dr. Jacinda Benton MD Primary Care Provider Active Start: June 10, 2025 Lucas CHAWLA MD Attending Provider Active Start: June 10, 2025 Team Status: Inactive Member Role/Relationship Status Dates Dr. Jacinda Benton MD Primary Care Provider Active Start: June 10, 2025 End: June 10, 2025 Karen Dias FRIT MAKER, FRIT MAKER-C Attending Provider Active Start: June 10, 2025 End: June 10, 2025 Team Status: Inactive Member Role/Relationship Status Dates Dr. Jacinda Benton MD Primary Care Provider Active Start: June 12, 2025 End: June 12, 2025 Karen Dias NP, FRIT MAKER-C Attending Provider Active Start: June 12, 2025 End: June 12, 2025 Team Status: Inactive Member Role/Relationship Status Dates Dr. Jacinda Benton MD Primary Care Provider Active Start: July 05, 2025 End: July 05, 2025 Dr. Jaya Campbell DO Attending Provider Active Start : July 05, 2025 End: July 05, 2025 Dr. Jaya Campbell DO Emergency Provider Active Start : July 05, 2025 End: July 05, 2025 Team Status: Inactive Member Role/Relationship Status Dates Dr. Jacinda Benton MD Primary Care Provider Active Start: July 22, 2025 End: July 23, 2025 Dr. Ramírez Onofre MD Emergency Provider Active S tart: July 22, 2025 End: July 23, 2025 Marketing Team Lead Relationship Specialty Start Date End Date Jacinda Benton [address] [place] [id number] PCP - General 06/23/20 Reason for Visit (unrecogniz ed section and [...] Reason Onset Date Comments Prior Authorization 05/05/2025 Reason Comments Follow-up Multiple Sclerosis Results Dizziness Source Comments (unrecognize d section and content) In the event this informatio n is protected by the Federal Confidentiality of Alcohol and Drug Abuse Patient Records regulations: The Federal rules restrict any use of the information to criminally investigate or prosecute any alcohol or drug abuse patient.[facility] FOR RECORDS PERTAINING TO PATIENTS [...] BE BASED ON THE PRIMARY CLINICAL RECORDS. [facility]. provides no warranty or guarantee of the accuracy or completeness of information in this document.
--- NOTE | 2025-07-31 21:25 | RAD_ITS ---
PROCEDURE: CHEST 1 VIEW (PORTABLE) 07/31/2025 REASON FOR EXAM: CHEST PAIN TECHNIQUE: Frontal view of the chest. COMPARISON: 06/03/2025 x-ray, 06/07/2025 CT FINDINGS: Hardware: None. Heart: The heart size is normal. Lungs: The lungs are clear. No pneumothorax or pleural effusion. Bones: The bones are unremarkable. RAD/Chest 1 View (Portable) IMPRESSION: No Acute Findings. Reading Location: [facility]
[2025-07-31 21:43] LABS: Hematocrit 36.4 % (37-47); Hemoglobin 11.7 g/dL (12.0-15.0); Immature Granulocytes Count 0.020 X10^3/uL (0.0-0.0); Mean Corp Hgb Conc 32.1 g/dL (32-36); Mean Corpuscular Volume 85.8 fL (81-99); Mean Platelet Vol. 10.5 fl (6.2-12.0); NRBC Flagged by Analyzer 0 % (0-5); Platelet Count 131 K/mm3 (150-450); RBC Distribution Width CV 18.2 % (11.6-14.6); RBC Distribution Width SD 57.0 fl (35.1-43.9); Red Blood Count 4.24 M/mm3 (4.2-5.4); White Blood Count 7.0 K/mm3 (4.4-11.0)
[2025-07-31 22:01] LABS: Anion Gap 14 (5-15); BUN 32 mg/dL (4-19); BUN/Creat Ratio 25.8 RATIO (10-20); Calcium,Total 9.5 mg/dL (7.6-11.0); Carbon Dioxide 28.3 mmol/L (21.0-32.0); Chloride 95 mmol/L (98-108); Estimated Creatinine Clearance 32.34 ml/min (50-250); Glucose 132 mg/dL (70-99); Potassium 3.7 mmol/L (3.3-5.1); Troponin T High Sensitivity 29 ng/L (<=14)
[2025-07-31 22:02] VITALS: BP 160/75; PULSE 52; O2SAT 92
[2025-07-31 23:00] VITALS: BP 156/66; PULSE 52; O2SAT 98
--- NOTE | 2025-07-31 23:04 | ED.VIS.CHEST ---
HPI History of Present Illness Chief Complaint: Chest Pain Detail of Chief Complaint: Chest pain with mild shortness of breath Informant: patient Onset/Context/Timing Onset: Today and Hours (1 hour prior to presentation at rest.) Activity at onset: sudden Timing: Continuous Quality: Positive for Pressure Location: Substernal Current Severity: Mild Maximum Severity: Moderate Worsened By: Nothing Relieved By: Nothing and NTG (Took nitro without benefit per patient) Associated Symptoms: Positive for Nausea and Dyspnea; Negative for Vomiting, Diaphoresis ([place]ol[place] warm but not diaphoretic), Cough, Fever, Lightheadedness, Acid Reflux or Palpitations Narrative Narrative: Patient presents with chest pain. She states she has had a cardiac catheterization in the past by Dr. Jean. She also had a GREGORIO performed. TTE was performed March 19, 2025. Interpretation summary normal LV size. Left ventricular ejection fraction is 65%. Bubble contrast study is negative for PFO/ASD. There is no regional wall motion abnormalities noted. There was diffuse anterior mitral leaflet valve thickening. Moderate 2+ eccentric mitral valve insufficiency. She had a cardiac catheterization November 2024. Dominance right side. Left main had 40% stenosis. Left anterior descending artery had 60% stenosis. Circumflex had mild luminal irregularities. Right coronary had proximal 40% stenosis. Peripheral findings revealed abdominal aorta with moderate diffuse disease in the infrarenal aorta. There is 60 to 70% stenosis. Right common iliac artery with 60 to 70% ostial stenosis in-stent. Right iliac artery moderate diffuse disease. Patient has had a carotid endarterectomy by Dr. Nava in the past. This was performed in May. Prior Similar Symptoms: With Prior Angina Recent Illness/Hospitalization: No CVD Risk Factors: Positive for Hypertension and Hypercholesterolemia; Negative for Diabetes or Family History 1' </=55 PE Risk Factors: Negative for Recent Travel/Surgery, Recent Immobilization, Prior DVT or PE or Cancer TAD Risk Factors: Positive for Hypertension; Negative for Marfan's Syndrome or Family History [facility] Medical History Hypertensive emergency NSTEMI, initial episode of care Mitral stenosis On home oxygen therapy Atrial fibrillation Chronic low back pain Diastolic hypertension Elevated troponin Chest pain PAF (paroxysmal atrial fibrillation) Emphysema of lung Smoking greater than 30 pack years Nicotine dependence, cigarettes, uncomplicated New onset atrial fibrillation Elevated troponin Atrial fibrillation Hypothyroidism Smoker Coronary artery disease TIA (transient ischemic attack) Influenza A [place] (dyspnea on exertion) Atherosclerotic heart disease of [place] coronary artery without angina pectoris Cardiac murmur Nonsustained paroxysmal supraventricular tachycardia Multiple sclerosis Nonobstructive atherosclerosis of coronary artery Peripheral vascular occlusive disease Essential (primary) hypertension Bilateral carotid artery stenosis History of transient ischemic attack (TIA) Fatty liver Thrombocytopenia GERD (gastroesophageal reflux disease) Psoriatic arthritis Psoriasis Osteoporosis Osteoarthritis Goiter Multiple sclerosis HLD (hyperlipidemia) Angina pectoris Chronic pain syndrome Home Medications ?Medication ?Instructions ?Recorded ?Last Taken ?Type levothyroxine 50 mcg tablet 50 mcg PO DAILY thyroid 08/11/21 04/21/25 History dextromethorphan-guaifenesin ER 60 1 tab PO Q12H PRN cough/congest 02/19/24 03/19/25 History mg-1,200 mg tab,extend release,12hr (Mucinex DM) famotidine 40 mg tablet 40 mg PO QDAY PRN indigestion 11/24/24 03/19/25 History apixaban 5 mg tablet (Eliquis) 5 mg PO Q12H anticoagulation #180 03/09/25 03/19/25 Rx Held on 06/07/25. tabs Instructions: Resume on 06/18/25. cholecalciferol (vitamin D3) 125 125 mcg PO DAILY supplement 04/18/25 Unknown History mcg (5,000 unit) capsule docusate sodium 100 mg capsule 100 mg PO BID stool softener 7 04/18/25 Unknown Rx (Colace) days #14 caps doxepin 10 mg/mL oral concentrate 5 - 10 mg PO QHS back 04/18/25 Unknown History rosuvastatin 10 mg tablet 10 mg PO QHS hld 04/18/25 Unknown History polysaccharide iron complex 150 mg 150 mg PO DAILY 90 days #90 caps 04/22/25 Unknown Rx iron capsule (Ferrex) amlodipine 2.5 mg tablet 2.5 mg PO QDAY bp 05/13/25 Unknown History capsaicin 0.1 % topical cream 1 applic topical TID #60 grams 05/19/25 Unknown Rx food supplemt, lactose-reduced 120 ml PO TIDCM #21,330 mL 06/07/25 Unknown Rx 0.08 gram-1.5 kcal/mL oral liquid (Ensure Plus High Protein) pantoprazole 40 mg tablet,delayed 40 mg PO BID #120 tabs 06/07/25 Unknown Rx release (Protonix) baclofen 10 mg tablet 10 mg PO TID #0 tabs 06/09/25 Unknown Rx furosemide 40 mg tablet 40 mg PO BIDLX #0 tabs 06/09/25 Unknown Rx gabapentin 300 mg capsule 300 mg PO TID #0 caps 06/09/25 Unknown Rx oxycodone 5 mg tablet 10 mg (2 x 5 mg) PO Q6H PRN PRN 06/09/25 Unknown Rx Pain Score 4-10 3 days #15 tabs pantoprazole 40 mg tablet,delayed 40 mg PO BIDCM #1 TAB 06/09/25 Unknown Rx release (Protonix) paroxetine HCl 10 mg tablet 10 mg PO DAILY #0 tabs 06/09/25 Unknown Rx potassium chloride 20 mEq 20 meq PO BIDCM #0 tabs 06/09/25 Unknown Rx tablet,extended release(part/cryst) quetiapine 25 mg tablet 50 mg (2 x 25 mg) PO QHS #0 tabs 06/09/25 Unknown Rx carvedilol 3.125 mg tablet 3.125 mg PO BIDCM heart #180 tabs 07/22/25 Unknown Rx Allergy/AdvReac Type Severity Reaction Status Date / Time colestipol (From Colestid) Allergy Mild unknown Verified 07/31/25 21:02 pregabalin (From Lyrica) Allergy Mild Hives Verified 07/31/25 21:02 amitriptyline Allergy Rash Verified 07/31/25 21:02 temazepam (From Restoril) AdvReac Mild Nausea/Vom/ Verified 07/31/25 21:02 Diarrhea Antihistamines - Alkylamine AdvReac Nausea/Vom/ Verified 07/31/25 21:02 Diarrhea Antihistamines - Ethanolamine AdvReac Nausea/Vom/ Verified 07/31/25 21:02 Diarrhea Antihistamines - AdvReac Nausea/Vom/ Verified 07/31/25 21:02 Ethylenediamine Diarrhea Antihistamines - Piperazine AdvReac Nausea/Vom/ Verified 07/31/25 21:02 Diarrhea Antihistamines - Piperidine AdvReac Nausea/Vom/ Verified 07/31/25 21:02 Diarrhea aspirin AdvReac I'M ON Verified 07/31/25 21:02 BLOOD THINNERS codeine AdvReac Nausea Verified 07/31/25 21:02 Corticosteroids AdvReac Upset Verified 07/31/25 21:02 (Glucocorticoids) Stomach morphine AdvReac Nausea Verified 07/31/25 21:02 Ckkaxap-PAM-EaC Reductase AdvReac Nausea Verified 07/31/25 21:02 Inhibitor (Aldlmkm-Cut-Sis Reductase Inhibitor) Family History Mother Cancer CAD (coronary artery disease) Brain tumor Grandfather CVA (cerebral vascular accident) Father CAD (coronary artery disease) Ruptured abdominal aortic aneurysm (AAA) Sister Brain aneurysm Surgical History History of coronary artery stent placement History of appendectomy History of cholecystectomy History of angioplasty of peripheral vessel (07/11/19) Stenosis of left subclavian artery History of left heart catheterization (01/25/15) S/P coil embolization of cerebral aneurysm History of angioplasty of peripheral vessel History of right-sided carotid endarterectomy History of left-sided carotid endarterectomy History of partial thyroidectomy (11/30/05) History of hemorrhoidectomy History of hysterectomy History of section Brain aneurysm Fracture of right lower leg S/P insertion of iliac artery stent History of left breast biopsy H/O hemorrhoidectomy S/P hysterectomy H/O: S/P thyroidectomy Social History household members: none housing: apartment Smoking Status: Current every day smoker tobacco type: cigarettes alcohol intake: never caffeine: Yes Type: coffee and tea ROS ROS ED Constitutional Constitutional ED: Denies chills, fever(s) or subjective Eyes Eyes: Reports none ENT ENT ED: Denies ear pain, rhinorrhea or sore throat Cardiovascular Cardiovascular: Reports as per HPI; Denies orthopnea or paroxysmal nocturnal dyspnea Respiratory/Chest Respiratory/Chest: Reports dyspnea; Denies cough, dyspnea on exertion, orthopnea or paroxysmal nocturnal dyspnea Gastrointestinal Gastrointestinal: Denies abdominal pain, diarrhea or vomiting Musculoskeletal Musculoskeletal: Denies arthralgias, back pain, myalgias or neck pain Integumentary Denies rash Neurologic Neurologic: Denies headache(s) or paresthesias Endocrine Endocrinology: Denies cold intolerance or heat intolerance Hematologic/Lymphatic Hematologic/Lymphatic: Denies easy bleeding or easy bruising EXAM Physical Exam Const Vital Signs: 07/31/25 21:02 07/31/25 21:30 07/31/25 21:31 Temperature 98 F Temperature Source Temporal Pulse Rate 71 Respiratory Rate 18 Respiratory Effort Normal Non-Labored Blood Pressure 189/104 H Blood Pressure Mean 132 Pulse Ox 99 Oxygen Delivery Method Room Air Room Air 07/31/25 22:02 07/31/25 23:00 Temperature Temperature Source Pulse Rate 52 L 52 L Respiratory Rate Respiratory Effort Blood Pressure 160/75 H 156/66 H Blood Pressure Mean 103 96 Pulse Ox 92 98 Oxygen Delivery Method Positive well nourished and well developed General Appearance ED: well developed; Negative for pallor HEENT Reports moist mucous membranes normocephalic and atraumatic Eyes EOMs intact bilaterally General Eye ED: Negative for pale conjunctiva or scleral icterus Neck no lymphadenopathy, supple and no JVD Neck Narrative: Carotid endarterectomy scar noted on the right Resp normal respiratory effort and clear to auscultation bilaterally Effort and Inspection: Negative for pain with movement Cardio regular rate, regular rhythm, S1 normal heart sound, S2 normal heart sound and no murmurs GI normal to inspection, nondistended, normoactive bowel sounds, soft to palpation, non-tender, non-distended and no masses; Negative for hepatosplenomegaly Back/Spine no CVA tenderness and no thoracic nor lumbar tenderness Extremity normal to inspection General Extremety ED: Negative for pulses abnormal General Extremity: Negative for pulses abnormal Neuro oriented x3 and CN's II-XII intact bilaterally Sensorium / Orientation: awake Psych mental status grossly normal Skin no rashes or lesions noted and no wounds General Skin Exam: Negative for jaundice or pallor MDM MDM MDM Narrative Medical decision making narrative: Differential diagnosis cardiac versus noncardiac. Noncardiac would include pneumonia, GERD, liver disease/biliary disease. History is not consistent with pneumothorax or pneumonia. History is not consistent with aortic dissection either. History & Record Review Additional record(s) reviewed:: Prior outpatient record (Documented HPI narrative), Prior ED visit and Prior labs Lab Data Attestation: I reviewed the patient's lab results. Lab results narrative: CBC reveals mild anemia with normal indices. Basic metabolic panel reveals elevated BUN and creatinine of 32 and 1.25 with an estimated GFR of 46 and a BUN/creatinine ratio of approximately 26-1. First troponin slightly elevated 29. Going back over some time patient's last troponin was 24. Apparently she has an elevated baseline troponin. If 2-hour does not have a significant rise we will discharge to home. When she had her MO in 2022 her troponin was approximately 1700. Labs: Laboratory Results - last 24 hr 07/31/25 07/31/25 21:17 23:12 WBC 7.0 RBC 4.24 Hgb 11.7 L Hct 36.4 L MCV 85.8 MCH 27.6 MCHC 32.1 RDW Std Deviation 57.0 H RDW Coeff of David 18.2 H Plt Count 131 L MPV 10.5 Immature Gran % (Auto) 0.300 Neut % (Auto) 69.7 Lymph % (Auto) 13.9 L Rains % (Auto) 8.6 Eos % (Auto) 6.6 H Baso % (Auto) 0.9 Absolute Neuts (auto) 4.9 Absolute Lymphs (auto) 0.97 Nucleated RBC % 0 Sodium 137 Potassium 3.7 Chloride 95 L Carbon Dioxide 28.3 Anion Gap 14 BUN 32 H Creatinine 1.25 H Estim Creat Clear Calc 32.34 L Est GFR (MDRD) Non-Af 46 L BUN/Creatinine Ratio 25.8 H Glucose 132 H Calcium 9.5 Troponin T High Sens 29 H Troponin T Hi Sens 2 Hr 27 H Second troponin is 27 with a delta -2. Since patient had prior baseline elevated troponins and this is in the range of her baseline troponin she was discharged to home. Since patient has renal insufficiency suspect this is the reason for her slight bump in troponin. Radiography Chest X-Ray - ED: Read by ED Physician, Unchanged, Heart, Mediastinum, No Acute Disease and Chronic Changes Diagnostic Testing: Clinical Impression(s) from Imaging Studies Chest X-Ray 07/31/25 21:25 IMPRESSION: No Acute Findings. Reading Location: [facility] EKG Initial EKG: Attestation: I personally reviewed and interpreted this EKG as follows: Interpretation: Sinus Rhythm (Rate is 60. Parables 154 ms. QS duration 80 ms. QT duration 486 ms. This is not a normal EKG there is probable left atrial enlargement.) Discharge Plan Triage Chief Complaint: Chest Pain ED Provider: Jeffy Willoughby Dx/Rx/DC Orders Clinical Impression: Chest pressure, Nonobstructive atherosclerosis of coronary artery, Elevated blood pressure reading with diagnosis of hypertension, Thrombocytopenia, Chronic kidney insufficiency, Prerenal azotemia Instructions: ED Chest Pain, Uncertain Cause Prescriptions: No Action levothyroxine 50 mcg tablet 50 mcg PO DAILY Patient Comments: take 1 tablet by mouth once daily famotidine 40 mg tablet 40 mg PO QDAY PRN (Reason: indigestion) dextromethorphan-guaifenesin [Mucinex DM] 60-1,200 mg tablet extended release 12 hr 1 tab PO Q12H PRN (Reason: cough/congest) doxepin 10 mg/mL concentrate 5 - 10 mg PO QHS cholecalciferol (vitamin D3) 125 mcg (5,000 unit) capsule 125 mcg PO DAILY rosuvastatin 10 mg tablet 10 mg PO QHS polysaccharide iron complex [Ferrex 150] 150 mg iron Capsule 150 mg PO DAILY 90 Days Qty: 90 0RF capsaicin 0.1 % cream 1 applic topical TID Qty: 60 0RF Rx Instructions: do not wash area for at least 30 min after application docusate sodium [Colace] 100 mg capsule 100 mg PO BID 7 Days Qty: 14 0RF Ensure Plus High Protein 0.08 gram-1.5 kcal/mL Liquid 120 ml PO TIDCM Qty: 79756 0RF pantoprazole [Protonix] 40 mg tablet,delayed release (DR/EC) 40 mg PO BID Qty: 120 0RF furosemide 40 mg Tablet 40 mg PO BIDLX Qty: 0 0RF baclofen 10 mg Tablet 10 mg PO TID Qty: 0 0RF oxycodone 5 mg Tablet 10 mg PO Q6H PRN PRN (Reason: Pain Score 4-10) 3 Days Qty: 15 0RF quetiapine 25 mg Tablet 50 mg PO QHS Qty: 0 0RF paroxetine HCl 10 mg Tablet 10 mg PO DAILY Qty: 0 0RF potassium chloride 20 mEq Tablet,Er Particles/Crystals 20 meq PO BIDCM Qty: 0 0RF gabapentin 300 mg Capsule 300 mg PO TID Qty: 0 0RF pantoprazole [Protonix] 40 mg tablet,delayed release (DR/EC) 40 mg PO BIDCM Qty: 1 0RF Eliquis 5 mg tablet 5 mg PO Q12H Qty: 180 3RF amlodipine 2.5 mg tablet 2.5 mg PO QDAY carvedilol 3.125 mg tablet 3.125 mg PO BIDCM Qty: 180 3RF Primary Care Provider: Daron Benton Referrals: Daron Benton MD [Primary Care Provider] - 3-5 Days Print Language: Syrian Disposition Disposition: Home, Self Care
[2025-08-01] VITALS: BP 169/70; PULSE 51; RESP 16; O2SAT 98
[2025-08-01 00:07] LABS: Troponin T High Sens 2 HR 27 ng/L (<=14)
[2025-08-01 00:36] VITALS: BP 135/72; PULSE 54; RESP 14; TEMP 36.6; O2SAT 95
== END 2025-08-01 00:39 | disposition home or self-care (01) ==
PROVIDERS: Emergency Provider Emergency Medicine; PCP Family Medicine; Visit Provider Emergency Medicine
DX: R07.89 Other chest pain (principal); G35 Multiple sclerosis; I25.10 Atherosclerotic heart disease of native coronary artery without angina pectoris; I12.9 Hypertensive chronic kidney disease with stage 1 through stage 4 chronic kidney disease, or unspecified chronic kidney disease; F17.210 Nicotine dependence, cigarettes, uncomplicated; N18.9 Chronic kidney disease, unspecified; R79.89 Other specified abnormal findings of blood chemistry; I25.2 Old myocardial infarction; Z86.73 Personal history of transient ischemic attack (TIA), and cerebral infarction without residual deficits
CPT/HCPCS: 71045; 80048; 84484; 85025; 93005; 99284; A4216

== ENCOUNTER 2025-08-05 20:53 | Emergency (ER) | payer MEDICARE, MEDICAID, SELFPAY ==
[2025-08-05 20:54] VITALS: BP 174/86; PULSE 58; RESP 18; TEMP 36.6; O2SAT 99; BMI 19.1
--- NOTE | 2025-08-05 21:14 | EKG12_ITS ---
Test Reason : CP Blood Pressure : */* mmHG Vent. Rate : 55 BPM Atrial Rate : 55 BPM P-R Int : 172 ms QRS Dur : 88 ms QT Int : 472 ms P-R-T Axes : 53 -13 42 degrees QTcB Int : 451 ms Sinus bradycardia Possible Left atrial enlargement Borderline ECG Confirmed by OTILIA FOX, MAYI ([id number]), commercial production editor ADI CORDERO ([id number]) on 08/07/2025 10:43:11 AM Referred By: UG Confirmed By: MAYI BINGHAM MD
[2025-08-05 21:25] LABS: Hematocrit 33.0 % (37-47); Hemoglobin 10.4 g/dL (12.0-15.0); Immature Granulocytes Count 0.020 X10^3/uL (0.0-0.0); Mean Corp Hgb Conc 31.5 g/dL (32-36); Mean Corpuscular Volume 87.8 fL (81-99); Mean Platelet Vol. 10.2 fl (6.2-12.0); NRBC Flagged by Analyzer 0 % (0-5); Platelet Count 108 K/mm3 (150-450); RBC Distribution Width CV 18.3 % (11.6-14.6); RBC Distribution Width SD 58.3 fl (35.1-43.9); Red Blood Count 3.76 M/mm3 (4.2-5.4); White Blood Count 6.3 K/mm3 (4.4-11.0)
[2025-08-05 21:54] VITALS: BP 143/76; PULSE 49; RESP 19; O2SAT 97
[2025-08-05 22:00] VITALS: BP 150/69; PULSE 50; RESP 18; O2SAT 98
[2025-08-05 22:54] LABS: Anion Gap 12 (5-15); BUN 61 mg/dL (4-19); BUN/Creat Ratio 29.2 RATIO (10-20); Calcium,Total 9.5 mg/dL (7.6-11.0); Carbon Dioxide 31.1 mmol/L (21.0-32.0); Chloride 96 mmol/L (98-108); Estimated Creatinine Clearance 20.25 ml/min (50-250); Glucose 119 mg/dL (70-99); Potassium 4.9 mmol/L (3.3-5.1)
[2025-08-05 22:56] LABS: Troponin T High Sensitivity 34 ng/L (<=14)
[2025-08-05 23:00] VITALS: BP 169/72; PULSE 53; RESP 16; O2SAT 98
[2025-08-05 23:15] LABS: Troponin T High Sens 2 HR 33 ng/L (<=14)
--- NOTE | 2025-08-05 23:36 | EX.ED.DYSGE1 ---
HPI <Dr. Jeffy Willoughby MD - Last Filed: 08/06/25 14:45> History of Present Illness Chief Complaint: Chest Pain Detail of Chief Complaint: Chest pain time of onset has varied radiating to left arm and upper back pa Informant: patient Onset/Context/Timing Onset: Today and Days Context: Sudden Onset Timing: Intermittent (Both episodes lasted approximately 1 hour. She did take nitro for both episodes.) Quality: Sharp pain that went from left to right 2 days ago discomfort left chest ra Location: Left chest with radiation left arm Current Severity: Gone Maximum Severity: Moderate Worsened by: Nothing both episodes occurred at rest Relieved by: Nitro per patient however pain lasted an hour Associated Symptoms Associated Symptoms: Nausea with both incidences Narrative Narrative: Patient is a 70-year-old woman. She has known history of carotid stenosis, coronary artery disease with non-ST elevation OK, paroxysmal atrial fibrillation, long-term anticoagulant, hypertension, hyperlipidemia who presents with pain that went from her left scapular region to the right scapular region 2 days ago. This was sharp. Lasted approximately 30 to 60 minutes. Today at rest while watching TV she developed left-sided chest pain initially she stated that the arm pain started an hour prior to presentation however she states the chest pain started at approximately 1800 the radiate to the left arm and lasted for an hour. When patient was informed of the discrepancy she recanted that the pain in her arm started an hour prior to presentation. She had nausea. She did take nitro. She reports improvement with the nitro. She is presently pain-free. Patient was seen today by nurse practitioner Betsey Nunez who works with the [facility]. This was a cardiovascular appointment. She underwent bilateral carotid endarterectomy at [facility]. This is performed by Dr. Nava. 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 In 2019 she had stenting of the right common iliac by Dr. Nava. January 2019 she had angioplasty to her left common iliac, right iliac and stenting to her left external iliac. She is also had balloon angioplasty of her left subclavian vessel June 2019. She regained her neurologic function of her left hand after the subclavian artery occlusion angioplasty. There is concerned that she may have had a TIA in the past. She is presently on apixaban. When she was admitted November 2024 for pneumonia she had a rise in her troponin. She underwent cardiac catheterization. Cardiac catheterization revealed 40% stenosis of the ostial left main and 60% stenosis of the mid LAD with an occluded small distal diagonal branch that filled collateral and was felt to be the culprit of the elevated troponin. Echo in November 2024 revealed an estimated EF of 60%. Patient did have wall motion abnormality consistent with the distal diagonal branch occlusion. She was admitted for GI bleed at [facility]. She denies black or maroon-colored stool. She denies abdominal pain. She denies headache. She states she had some facial numbness on the right side. She presently does not. She denied motor weakness in the upper or lower extremities. She denied problems with balance or coordination or fine motor movement of her hands. Prior similar symptoms: No Recent Illness/Hospitalization: Yes [facility] <Dr. Jeffy Willoughby MD - Last Filed: 08/06/25 14:45> [facility] Medical History Essential hypertension Hypertensive emergency NSTEMI, initial episode of care Mitral stenosis On home oxygen therapy Atrial fibrillation Chronic low back pain Diastolic hypertension Elevated troponin Chest pain PAF (paroxysmal atrial fibrillation) Emphysema of lung Smoking greater than 30 pack years Nicotine dependence, cigarettes, uncomplicated New onset atrial fibrillation Elevated troponin Atrial fibrillation Hypothyroidism Smoker Coronary artery disease TIA (transient ischemic attack) Influenza A [place] (dyspnea on exertion) Atherosclerotic heart disease of [place] coronary artery without angina pectoris Cardiac murmur Nonsustained paroxysmal supraventricular tachycardia Multiple sclerosis Nonobstructive atherosclerosis of coronary artery Peripheral vascular occlusive disease Essential (primary) hypertension Bilateral carotid artery stenosis History of transient ischemic attack (TIA) Fatty liver Thrombocytopenia GERD (gastroesophageal reflux disease) Psoriatic arthritis Psoriasis Osteoporosis Osteoarthritis Goiter Multiple sclerosis HLD (hyperlipidemia) Angina pectoris Chronic pain syndrome Home Medications ?Medication ?Instructions ?Recorded ?Last Taken ?Type levothyroxine 50 mcg tablet 50 mcg PO DAILY thyroid 08/11/21 04/21/25 History dextromethorphan-guaifenesin ER 60 1 tab PO Q12H PRN cough/congest 02/19/24 03/19/25 History mg-1,200 mg tab,extend release,12hr (Mucinex DM) famotidine 40 mg tablet 40 mg PO QDAY PRN indigestion 11/24/24 03/19/25 History cholecalciferol (vitamin D3) 125 125 mcg PO DAILY supplement 04/18/25 Unknown History mcg (5,000 unit) capsule docusate sodium 100 mg capsule 100 mg PO BID stool softener 7 04/18/25 Unknown Rx (Colace) days #14 caps polysaccharide iron complex 150 mg 150 mg PO DAILY 90 days #90 caps 04/22/25 Unknown Rx iron capsule (Ferrex) amlodipine 2.5 mg tablet 2.5 mg PO QDAY bp 05/13/25 Unknown History capsaicin 0.1 % topical cream 1 applic topical TID #60 grams 05/19/25 Unknown Rx food supplemt, lactose-reduced 120 ml PO TIDCM #21,330 mL 06/07/25 Unknown Rx 0.08 gram-1.5 kcal/mL oral liquid (Ensure Plus High Protein) baclofen 10 mg tablet 10 mg PO TID #0 tabs 06/09/25 Unknown Rx gabapentin 300 mg capsule 300 mg PO TID #0 caps 06/09/25 Unknown Rx oxycodone 5 mg tablet 10 mg (2 x 5 mg) PO Q6H PRN PRN 06/09/25 Unknown Rx Pain Score 4-10 3 days #15 tabs pantoprazole 40 mg tablet,delayed 40 mg PO BIDCM #1 TAB 06/09/25 Unknown Rx release (Protonix) paroxetine HCl 10 mg tablet 10 mg PO DAILY #0 tabs 06/09/25 Unknown Rx potassium chloride 20 mEq 20 meq PO BIDCM #0 tabs 06/09/25 Unknown Rx tablet,extended release(part/cryst) quetiapine 25 mg tablet 50 mg (2 x 25 mg) PO QHS #0 tabs 06/09/25 Unknown Rx carvedilol 3.125 mg tablet 3.125 mg PO BIDCM heart #180 tabs 07/22/25 Unknown Rx apixaban 5 mg tablet (Eliquis) 5 mg PO Q12H anticoagulation #180 08/03/25 Unknown Rx tabs rosuvastatin 20 mg tablet 20 mg PO QHS hld #90 tabs 08/05/25 Unknown Rx furosemide 40 mg tablet 40 mg PO QDAY 08/06/25 Unknown History Allergy/AdvReac Type Severity Reaction Status Date / Time colestipol (From Colestid) Allergy Mild unknown Verified 08/05/25 20:54 pregabalin (From Lyrica) Allergy Mild Hives Verified 08/05/25 20:54 amitriptyline Allergy Rash Verified 08/05/25 20:54 temazepam (From Restoril) AdvReac Mild Nausea/Vom/ Verified 08/05/25 20:54 Diarrhea Antihistamines - Alkylamine AdvReac Nausea/Vom/ Verified 08/05/25 20:54 Diarrhea Antihistamines - Ethanolamine AdvReac Nausea/Vom/ Verified 08/05/25 20:54 Diarrhea Antihistamines - AdvReac Nausea/Vom/ Verified 08/05/25 20:54 Ethylenediamine Diarrhea Antihistamines - Piperazine AdvReac Nausea/Vom/ Verified 08/05/25 20:54 Diarrhea Antihistamines - Piperidine AdvReac Nausea/Vom/ Verified 08/05/25 20:54 Diarrhea aspirin AdvReac I'M ON Verified 08/05/25 20:54 BLOOD THINNERS codeine AdvReac Nausea Verified 08/05/25 20:54 Corticosteroids AdvReac Upset Verified 08/05/25 20:54 (Glucocorticoids) Stomach morphine AdvReac Nausea Verified 08/05/25 20:54 Gblhskm-EBI-MjV Reductase AdvReac Nausea Verified 08/05/25 20:54 Inhibitor (Vvsokdf-Tmm-Chg Reductase Inhibitor) Family History Mother Cancer CAD (coronary artery disease) Brain tumor Grandfather CVA (cerebral vascular accident) Father CAD (coronary artery disease) Ruptured abdominal aortic aneurysm (AAA) Sister Brain aneurysm Surgical History History of coronary artery stent placement History of appendectomy History of cholecystectomy History of angioplasty of peripheral vessel (07/11/19) Stenosis of left subclavian artery History of left heart catheterization (01/25/15) S/P coil embolization of cerebral aneurysm History of angioplasty of peripheral vessel History of right-sided carotid endarterectomy History of left-sided carotid endarterectomy History of partial thyroidectomy (11/30/05) History of hemorrhoidectomy History of hysterectomy History of section Brain aneurysm Fracture of right lower leg S/P insertion of iliac artery stent History of left breast biopsy H/O hemorrhoidectomy S/P hysterectomy H/O: S/P thyroidectomy Social History household members: none housing: apartment Smoking Status: Current every day smoker tobacco type: cigarettes alcohol intake: never caffeine: Yes Type: coffee and tea ROS <Dr. Jeffy Willoughby MD - Last Filed: 08/06/25 14:45> ROS ED Constitutional Constitutional ED: Denies chills, fever(s), subjective or sweats Eyes Eyes: Denies blurry vision or change in vision ENT ENT ED: Denies ear pain, rhinorrhea or sore throat Cardiovascular Cardiovascular: Denies chest pain or palpitations Respiratory/Chest Respiratory/Chest: Denies cough, dyspnea or dyspnea on exertion Gastrointestinal Gastrointestinal: Reports nausea; Denies abdominal pain, diarrhea or vomiting Genitourinary Genitourinary ED: Denies dysuria, hematuria or urinary frequency Musculoskeletal Musculoskeletal: Denies arthralgias or myalgias Integumentary Denies abscess or rash Neurologic Neurologic: Denies headache(s), paresthesias or weakness Psychiatric Psychiatric: Reports anxiety; Denies depression Endocrine Endocrinology: Denies cold intolerance or heat intolerance Hematologic/Lymphatic Hematologic/Lymphatic: Reports systems reviewed and no addt'l complaints, except as documented EXAM <Dr. Jeffy Willoughby MD - Last Filed: 08/06/25 14:45> Physical Exam Const Vital Signs: 08/05/25 20:54 08/05/25 20:54 08/05/25 21:54 Temperature 98 F Temperature Source Temporal Pulse Rate 58 L 49 L Respiratory Rate 18 19 H Respiratory Effort Normal Non-Labored Blood Pressure 174/86 H 143/76 H Blood Pressure Mean 115 98 Pulse Ox 99 97 Oxygen Delivery Method Room Air Room Air Oxygen Flow Rate (L/min) 08/05/25 22:00 08/05/25 23:00 08/06/25 00:00 Temperature Temperature Source Pulse Rate 50 L 53 L 50 L Respiratory Rate 18 16 12 Respiratory Effort Blood Pressure 150/69 H 169/72 H 184/85 H Blood Pressure Mean 96 104 118 Pulse Ox 98 98 96 Oxygen Delivery Method Room Air Room Air Room Air Oxygen Flow Rate (L/min) 08/06/25 01:00 08/06/25 01:29 08/06/25 01:30 Temperature Temperature Source Pulse Rate 50 L Respiratory Rate 13 Respiratory Effort Blood Pressure 158/97 H Blood Pressure Mean 117 Pulse Ox 98 96 100 Oxygen Delivery Method Room Air Room Air Nasal Cannula Oxygen Flow Rate (L/min) 3 08/06/25 02:00 08/06/25 03:00 08/06/25 04:00 Temperature Temperature Source Pulse Rate 50 L 59 L 54 L Respiratory Rate 16 11 L 12 Respiratory Effort Blood Pressure 160/62 H 171/100 H 149/68 H Blood Pressure Mean 94 123 95 Pulse Ox 98 95 Oxygen Delivery Method Room Air Room Air Oxygen Flow Rate (L/min) 08/06/25 04:21 Temperature 98 F Temperature Source Pulse Rate 55 L Respiratory Rate 12 Respiratory Effort Blood Pressure 165/71 H Blood Pressure Mean 102 Pulse Ox 94 Oxygen Delivery Method Oxygen Flow Rate (L/min) Positive well nourished and well developed Constitutional Narrative: Blood pressure is slightly elevated. She is bradycardic. She is not hypoxic. General Appearance ED: well developed and NAD; Negative for cyanotic, diaphoretic or pallor HEENT Reports moist mucous membranes HEENT Narrative: Head is atraumatic normocephalic. Ears normal. Nares patent. Eyes PERRL and EOMs intact bilaterally General Eye ED: Negative for pale conjunctiva or scleral icterus Neck no lymphadenopathy, supple and no JVD Resp normal respiratory effort and clear to auscultation bilaterally Cardio regular rhythm, S1 normal heart sound and S2 normal heart sound; Negative for no murmurs Rate: bradycardia GI normal to inspection, nondistended, normoactive bowel sounds, non-tender, non-distended and no masses; Negative for hepatosplenomegaly Auscultation: normoactive bowel sounds Back/Spine no CVA tenderness Extremity normal to inspection Extremity Narrative: There is no asymmetry, swelling, discoloration, leg vein distention, palpable cords or tenderness along the distribution of the deep venous system. General Extremety ED: Negative for edema or tenderness General Extremity: Negative for edema Neuro oriented x3 and CN's II-XII intact bilaterally Sensorium / Orientation: alert Psych mental status grossly normal Mood & Affect: anxious Skin no rashes or lesions noted, no wounds and skin turgor normal General Skin Exam: Negative for jaundice or pallor <Dr. Yasmani Haynes, DO - Last Filed: 08/06/25 04:25> Physical Exam Const Vital Signs: 08/05/25 20:54 08/05/25 20:54 08/05/25 21:54 Temperature 98 F Temperature Source Temporal Pulse Rate 58 L 49 L Respiratory Rate 18 19 H Respiratory Effort Normal Non-Labored Blood Pressure 174/86 H 143/76 H Blood Pressure Mean 115 98 Pulse Ox 99 97 Oxygen Delivery Method Room Air Room Air Oxygen Flow Rate (L/min) 08/05/25 22:00 08/05/25 23:00 08/06/25 00:00 Temperature Temperature Source Pulse Rate 50 L 53 L 50 L Respiratory Rate 18 16 12 Respiratory Effort Blood Pressure 150/69 H 169/72 H 184/85 H Blood Pressure Mean 96 104 118 Pulse Ox 98 98 96 Oxygen Delivery Method Room Air Room Air Room Air Oxygen Flow Rate (L/min) 08/06/25 01:00 08/06/25 01:29 08/06/25 01:30 Temperature Temperature Source Pulse Rate 50 L Respiratory Rate 13 Respiratory Effort Blood Pressure 158/97 H Blood Pressure Mean 117 Pulse Ox 98 96 100 Oxygen Delivery Method Room Air Room Air Nasal Cannula Oxygen Flow Rate (L/min) 3 08/06/25 02:00 08/06/25 03:00 08/06/25 04:00 Temperature Temperature Source Pulse Rate 50 L 59 L 54 L Respiratory Rate 16 11 L 12 Respiratory Effort Blood Pressure 160/62 H 171/100 H 149/68 H Blood Pressure Mean 94 123 95 Pulse Ox 98 95 Oxygen Delivery Method Room Air Room Air Oxygen Flow Rate (L/min) 08/06/25 04:21 Temperature 98 F Temperature Source Pulse Rate 55 L Respiratory Rate 12 Respiratory Effort Blood Pressure 165/71 H Blood Pressure Mean 102 Pulse Ox 94 Oxygen Delivery Method Oxygen Flow Rate (L/min) MDM <Dr. Jeffy Willoughby MD - Last Filed: 08/06/25 14:45> [facility] Narrative Medical decision making narrative: In light of patient's significant vascular disease even though her chest pain is atypical will obtain EKG and serial troponins. Will obtain CBC to assess H&H and she appears pale. BMP to assess renal function since she has had slight elevation in renal function in the past. Chest x-ray was not obtained since she has clear lungs not hypoxic and she is not tachypneic. There is no concern for pneumonia or pneumothorax. History & Record Review Additional record(s) reviewed:: Prior inpatient record, Prior outpatient record, Prior ED visit, Prior labs and Other (Her prior visits labs are document HPI narrative.) Lab Data Attestation: I reviewed the patient's lab results. Lab results narrative: Patient H&H is very between 9.6 and 11.7 dating back to June 17, 2025. Creatinine was normal June 17, 2025. It was slightly elevated July 31, 2025. It is higher today at 2.1 with an estimated GFR of 25. Her estimated GFR was 58 June 17. This is a significant decrease. First troponin was elevated at 34. Second troponin is 33. Fourth hour troponin was ordered. Labs: Laboratory Results - last 24 hr 08/05/25 08/05/25 08/06/25 20:57 22:52 00:55 WBC 6.3 RBC 3.76 L Hgb 10.4 L Hct 33.0 L MCV 87.8 MCH 27.7 MCHC 31.5 L RDW Std Deviation 58.3 H RDW Coeff of David 18.3 H Plt Count 108 L MPV 10.2 Immature Gran % (Auto) 0.300 Neut % (Auto) 63.8 Lymph % (Auto) 18.2 L [place] % (Auto) 9.5 Eos % (Auto) 7.3 H Baso % (Auto) 0.9 Absolute Neuts (auto) 4.0 Absolute Lymphs (auto) 1.15 Nucleated RBC % 0 Sodium 139 Potassium 4.9 Chloride 96 L Carbon Dioxide 31.1 Anion Gap 12 BUN 61 H Creatinine 2.10 H Estim Creat Clear Calc 20.25 L Est GFR (MDRD) Non-Af 25 L BUN/Creatinine Ratio 29.2 H Glucose 119 H Calcium 9.5 Troponin T High Sens 34 H D Troponin T Hi Sens 2 Hr 33 H Troponin T Hi Sens 4Hr 32 H 08/06/25 03:43 WBC RBC Hgb Hct MCV MCH MCHC RDW Std Deviation RDW Coeff of David Plt Count MPV Immature Gran % (Auto) Neut % (Auto) Lymph % (Auto) [place] % (Auto) Eos % (Auto) Baso % (Auto) Absolute Neuts (auto) Absolute Lymphs (auto) Nucleated RBC % Sodium 138 Potassium 4.0 Chloride 100 Carbon Dioxide 25.3 Anion Gap 13 BUN 55 H Creatinine 1.85 H Estim Creat Clear Calc 22.99 L Est GFR (MDRD) Non-Af 29 L BUN/Creatinine Ratio 29.9 H Glucose 103 H Calcium 9.1 Troponin T High Sens Troponin T Hi Sens 2 Hr Troponin T Hi Sens 4Hr EKG Initial EKG: Attestation: I personally reviewed and interpreted this EKG as follows: Interpretation: Sinus Bradycardia (Rate is 55. There is no acute ischemia. MT interval is under 72 ms. QRS duration 88 ms. QT duration 4 to 72 ms. [place] is normal.) Differential Diagnosis Chest pain/SOB: pulmonary embolism Reason(s) PE less likely: Positive for Well's <3, not tachycardic, not hypoxic and patient taking oral anticoagulants, pneumothorax Reason(s) pneumothorax less likely: Positive for bilateral breath sounds and TICKET COUNTER withhout PTX, pneumonia Reason(s) pneumonia less likely: Positive for no infiltrate on CXR, no elevation in WBC count, no noted fever and symptoms not consistent with acute infection, aortic dissection Reason(s) Aortic dissection less likely:: Positive for normal vascular exam, normal neurological exam, no widened mediastinum on CXR, pain not sudden onset, no ripping/tearing pain and blood pressure appropriate in ED, CHF Reason(s) CHF less likely: Positive for no significant peripheral edema, no orthopnea and no evidence of fluid overload on CXR and COPD Reason(s) COPD less likely: Positive for no significant wheezing on exam, no tachypnea, no conversational dyspnea and normal air movement noted on auscultation on lungs Treatment and Re-Evaluation :: Will have 4-hour troponin drawn. Case was turned over to the night physician Dr. Haynes. Recommended discussing with cardiology. She also will need follow-up if not admitted for her elevated creatinine and decreased renal function. <Dr. Yasmani Haynes, DO - Last Filed: 08/06/25 04:25> [facility] Lab Data Labs: Laboratory Results - last 24 hr 08/05/25 08/05/25 08/06/25 20:57 22:52 00:55 WBC 6.3 RBC 3.76 L Hgb 10.4 L Hct 33.0 L MCV 87.8 MCH 27.7 MCHC 31.5 L RDW Std Deviation 58.3 H RDW Coeff of David 18.3 H Plt Count 108 L MPV 10.2 Immature Gran % (Auto) 0.300 Neut % (Auto) 63.8 Lymph % (Auto) 18.2 L [place] % (Auto) 9.5 Eos % (Auto) 7.3 H Baso % (Auto) 0.9 Absolute Neuts (auto) 4.0 Absolute Lymphs (auto) 1.15 Nucleated RBC % 0 Sodium 139 Potassium 4.9 Chloride 96 L Carbon Dioxide 31.1 Anion Gap 12 BUN 61 H Creatinine 2.10 H Estim Creat Clear Calc 20.25 L Est GFR (MDRD) Non-Af 25 L BUN/Creatinine Ratio 29.2 H Glucose 119 H Calcium 9.5 Troponin T High Sens 34 H D Troponin T Hi Sens 2 Hr 33 H Troponin T Hi Sens 4Hr 32 H 08/06/25 03:43 WBC RBC Hgb Hct MCV MCH MCHC RDW Std Deviation RDW Coeff of David Plt Count MPV Immature Gran % (Auto) Neut % (Auto) Lymph % (Auto) [place] % (Auto) Eos % (Auto) Baso % (Auto) Absolute Neuts (auto) Absolute Lymphs (auto) Nucleated RBC % Sodium 138 Potassium 4.0 Chloride 100 Carbon Dioxide 25.3 Anion Gap 13 BUN 55 H Creatinine 1.85 H Estim Creat Clear Calc 22.99 L Est GFR (MDRD) Non-Af 29 L BUN/Creatinine Ratio 29.9 H Glucose 103 H Calcium 9.1 Troponin T High Sens Troponin T Hi Sens 2 Hr Troponin T Hi Sens 4Hr Treatment and Re-Evaluation :: Will have 4-hour troponin drawn. Case was turned over to the night physician Dr. Haynes. Recommended discussing with cardiology. She also will need follow-up if not admitted for her elevated creatinine and decreased renal function. The patient was signed out to me while awaiting her 4-hour troponin. Her troponin values were 34 initially with a 2-hour value of 33 and a 4-hour value of 32 indicating no signs of acute coronary syndrome. The patient's creatinine which is typically normal looking back through previous lab values with now elevated at 2.10. I discussed the case with the hospitalist who recommends IV hydration and stopping nephrotoxic medications. She was given 1 L of fluid and the creatinine improved from 2.10 to a value of 1.85. The improvement in the creatinine which is simple hydration indicates that the most likely cause is mild dehydration and medication. The patient was advised to change her Lasix to 1 pill a day instead of 2 and to stop the telmisartan. Her vitals have remained stable and her troponins flat and therefore I do not feel there is need for admission or further intervention. The patient will follow-up with her driller hand once again to discuss further treatment options but at this time is safe for discharge. Discharge Plan Triage Chief Complaint: Chest Pain ED Provider: Jeffy Willoughby Dx/Rx/DC Orders Clinical Impression: Acute renal insufficiency, Essential hypertension, Mitral stenosis, Nonobstructive atherosclerosis of coronary artery, Paroxysmal atrial fibrillation, Current use of snf anticoagulation Instructions: CAD, ED Renal Insufficiency Prescriptions: No Action levothyroxine 50 mcg tablet 50 mcg PO DAILY Patient Comments: take 1 tablet by mouth once daily famotidine 40 mg tablet 40 mg PO QDAY PRN (Reason: indigestion) rosuvastatin 20 mg tablet 20 mg PO QHS Qty: 90 3RF dextromethorphan-guaifenesin [Mucinex DM] 60-1,200 mg tablet extended release 12 hr 1 tab PO Q12H PRN (Reason: cough/congest) cholecalciferol (vitamin D3) 125 mcg (5,000 unit) capsule 125 mcg PO DAILY polysaccharide iron complex [Ferrex 150] 150 mg iron Capsule 150 mg PO DAILY 90 Days Qty: 90 0RF capsaicin 0.1 % cream 1 applic topical TID Qty: 60 0RF Rx Instructions: do not wash area for at least 30 min after application docusate sodium [Colace] 100 mg capsule 100 mg PO BID 7 Days Qty: 14 0RF Ensure Plus High Protein 0.08 gram-1.5 kcal/mL Liquid 120 ml PO TIDCM Qty: 24676 0RF baclofen 10 mg Tablet 10 mg PO TID Qty: 0 0RF oxycodone 5 mg Tablet 10 mg PO Q6H PRN PRN (Reason: Pain Score 4-10) 3 Days Qty: 15 0RF quetiapine 25 mg Tablet 50 mg PO QHS Qty: 0 0RF paroxetine HCl 10 mg Tablet 10 mg PO DAILY Qty: 0 0RF potassium chloride 20 mEq Tablet,Er Particles/Crystals 20 meq PO BIDCM Qty: 0 0RF gabapentin 300 mg Capsule 300 mg PO TID Qty: 0 0RF pantoprazole [Protonix] 40 mg tablet,delayed release (DR/EC) 40 mg PO BIDCM Qty: 1 0RF amlodipine 2.5 mg tablet 2.5 mg PO QDAY carvedilol 3.125 mg tablet 3.125 mg PO BIDCM Qty: 180 3RF Eliquis 5 mg tablet 5 mg PO Q12H Qty: 180 3RF furosemide 40 mg tablet 40 mg PO QDAY Primary Care Provider: Daron Benton Referrals: Daron Benton MD [Primary Care Provider, [facility]] Activity Restrictions/Additional Instructions: Please change your Lasix/furosemide dose to 1 pill a day instead of 2. Please stop the telmisartan. These medications can create irritation to your kidney and it was elevated at your workup today. Please contact your driller hand to discuss these changes and return to the ER should you have any further concerns. Print Language: Faroese Disposition Disposition: Home, Self Care Discharge Date/Time: 08/06/25 04:29
[2025-08-06] VITALS (8 sets, daily range): BP systolic 149–184; BP diastolic 62–100; PULSE 50–59; RESP 11–16; TEMP 36.6; O2SAT 94–100
[2025-08-06 01:36] LABS: Troponin T High Sens 4 HR 32 ng/L (<=14)
[2025-08-06] MEDS: 0.9% Normal Saline (1000mL) 1,000 ML 999 ML IV (01:41)
[2025-08-06 04:08] LABS: Anion Gap 13 (5-15); BUN 55 mg/dL (4-19); BUN/Creat Ratio 29.9 RATIO (10-20); Calcium,Total 9.1 mg/dL (7.6-11.0); Carbon Dioxide 25.3 mmol/L (21.0-32.0); Chloride 100 mmol/L (98-108); Estimated Creatinine Clearance 22.99 ml/min (50-250); Glucose 103 mg/dL (70-99); Potassium 4.0 mmol/L (3.3-5.1)
== END 2025-08-06 04:29 | disposition home or self-care (01) ==
PROVIDERS: Emergency Medicine; Emergency Provider Emergency Medicine; PCP Family Medicine; Visit Provider Emergency Medicine
DX: N28.9 Disorder of kidney and ureter, unspecified (principal); G35 Multiple sclerosis; I48.0 Paroxysmal atrial fibrillation; E78.5 Hyperlipidemia, unspecified; I25.2 Old myocardial infarction; I25.10 Atherosclerotic heart disease of native coronary artery without angina pectoris; I10 Essential (primary) hypertension; K21.9 Gastro-esophageal reflux disease without esophagitis; F17.210 Nicotine dependence, cigarettes, uncomplicated; Z79.01 Long term (current) use of anticoagulants; Z79.899 Other long term (current) drug therapy; Z86.73 Personal history of transient ischemic attack (TIA), and cerebral infarction without residual deficits; Z95.5 Presence of coronary angioplasty implant and graft
CPT/HCPCS: 96361; 96374; 99285; 80048; 84484; 85025; 93005; A4216

== ENCOUNTER 2025-08-08 21:57 | Inpatient (IN) | payer MEDICARE, MEDICAID, SELFPAY ==
[2025-08-08 21:58] VITALS: BP 176/100; PULSE 66; RESP 18; TEMP 36.9; O2SAT 99; BMI 18.3
--- NOTE | 2025-08-08 22:13 | CT_ITS ---
EXAM: CT BRAIN/HEAD; SINUS/FACIAL BONE; SPINE CERVICAL WITHOUT CONTRAST 08/08/2025 CLINICAL HISTORY: HEAD INJURY COMPARISON: CT head 07/22/2025. TECHNIQUE: Noncontrast CT images of the head, maxillofacial structures, and cervical spine with multiplanar reconstructions. Dose reduction techniques were used including intermediate exposure control (AEC),iterative reconstruction technique, and/or mA and/or KV dose adjustments based on patient's size. FINDINGS: HEAD/FACE: No acute intracranial hemorrhage, extra-axial collection, mass effect or evidence of acute infarct. Chronic small-vessel ischemic changes with foci of encephalomalacia/gliosis involving the right frontal and left parietal mathew radiata white matter. Metallic coil embolization material in the anterior cranial fossa at the region of the anterior communicating artery. Atherosclerotic calcification of the carotid siphons. Moderate right frontal scalp hematoma/contusion. No acute skull base, calvarial, or maxillofacial bone fracture. Clear paranasal sinuses and bilateral mastoid air cells. Unremarkable orbits, with prior bilateral cataract surgery. No intraorbital hematoma or emphysema. CERVICAL SPINE: No acute fracture or subluxation. Multilevel spondylotic changes with varying degrees of disc space narrowing, anterior osteophytosis, uncovertebral spurring and hypertrophic facet arthropathy. No prevertebral soft tissue swelling. Mild atherosclerotic vascular calcifications, and postoperative changes to the carotids with a retropharyngeal trans-carotid vascular stent. Mild apical pulmonary emphysema. CT/Sinus/Facial Bone IMPRESSION: 1. No acute intracranial abnormality. 2. Moderate right frontal scalp hematoma/contusion. 3. No acute calvarial or maxillofacial fracture. 4. No acute cervical spine fracture or malalignment. 5. Additional non-acute ancillary findings, as described above. Reading Location: [facility]
--- NOTE | 2025-08-08 22:13 | RAD_ITS ---
PROCEDURE: CHEST 1 VIEW (PORTABLE) 08/08/2025 REASON FOR EXAM: FALL TECHNIQUE: Frontal view of the chest. COMPARISON: 07/31/2025 FINDINGS: Hardware: None. Heart: Cardiac and mediastinal contours are stable. Lungs: The lungs are clear. No pneumothorax or pleural effusion. Bones: Degenerative changes are identified within the thoracic spine. RAD/Chest 1 View (Portable) IMPRESSION: No Acute Findings. Reading [facility]
--- NOTE | 2025-08-08 22:13 | CT_ITS ---
EXAM: CT BRAIN/HEAD; SINUS/FACIAL BONE; SPINE CERVICAL WITHOUT CONTRAST 08/08/2025 CLINICAL HISTORY: HEAD INJURY COMPARISON: CT head 07/22/2025. TECHNIQUE: Noncontrast CT images of the head, maxillofacial structures, and cervical spine with multiplanar reconstructions. Dose reduction techniques were used including intermediate exposure control (AEC),iterative reconstruction technique, and/or mA and/or KV dose adjustments based on patient's size. FINDINGS: HEAD/FACE: No acute intracranial hemorrhage, extra-axial collection, mass effect or evidence of acute infarct. Chronic small-vessel ischemic changes with foci of encephalomalacia/gliosis involving the right frontal and left parietal mathew radiata white matter. Metallic coil embolization material in the anterior cranial fossa at the region of the anterior communicating artery. Atherosclerotic calcification of the carotid siphons. Moderate right frontal scalp hematoma/contusion. No acute skull base, calvarial, or maxillofacial bone fracture. Clear paranasal sinuses and bilateral mastoid air cells. Unremarkable orbits, with prior bilateral cataract surgery. No intraorbital hematoma or emphysema. CERVICAL SPINE: No acute fracture or subluxation. Multilevel spondylotic changes with varying degrees of disc space narrowing, anterior osteophytosis, uncovertebral spurring and hypertrophic facet arthropathy. No prevertebral soft tissue swelling. Mild atherosclerotic vascular calcifications, and postoperative changes to the carotids with a retropharyngeal trans-carotid vascular stent. Mild apical pulmonary emphysema. CT/Brain/Head without Contrast IMPRESSION: 1. No acute intracranial abnormality. 2. Moderate right frontal scalp hematoma/contusion. 3. No acute calvarial or maxillofacial fracture. 4. No acute cervical spine fracture or malalignment. 5. Additional non-acute ancillary findings, as described above. Reading Location: [facility]
--- NOTE | 2025-08-08 22:13 | RAD_ITS ---
PROCEDURE: PELVIS 1 OR 2 VIEWS 08/08/2025 REASON FOR EXAM: FALL TECHNIQUE: Procedure Code: RADPEL Modality: DX Procedure: PELVIS 1 OR 2 VIEWS COMPARISON: None FINDINGS: Osseous: Evaluation of the sacrum is suboptimal due to overlying bowel gas. If there are sacral symptoms consider additional oblique views or CT. Pelvic congruency is maintained. No acute displaced fracture of the pelvis is seen on this single projection. Bony degenerative changes are noted. Soft tissues: Soft tissue injury is not reliably assessed by this technique. Vascular stenting is seen. Vascular calcifications noted. Vascular patency can not be assessed by this study. Fecal material and bowel gas overlying the pelvis. RAD/Pelvis 1 or 2 Views IMPRESSION: No radiographic evidence of an acute osseous injury. - Findings, limitations and recommendations discussed above. Reading Location: [id number]
--- NOTE | 2025-08-08 22:15 | RAD_ITS ---
PROCEDURE: SHOULDER MIN 2 VIEWS 08/08/2025 REASON FOR EXAM: INJURY TECHNIQUE: Procedure Code: RADSH Modality: DX Procedure: SHOULDER MIN 2 VIEWS Laterality: Right COMPARISON: None FINDINGS: Osseous: The bones appear slightly demineralized. No acute fracture or malalignment is seen at the right shoulder. Degenerative change at the acromioclavicular joint noted. No evidence of calcific tendinitis. Soft tissue: Soft tissue injury is not reliably assessed by this technique. Surgical clips are seen along the neck of indeterminate significance. RAD/Shoulder min 2 Views IMPRESSION: No radiographic evidence of an acute osseous injury at the right shoulder. - Findings discussed above. Reading Location: [id number]
[2025-08-08 22:51] LABS: Hematocrit 36.3 % (37-47); Hemoglobin 11.7 g/dL (12.0-15.0); Immature Granulocytes Count 0.050 X10^3/uL (0.0-0.0); Mean Corp Hgb Conc 32.2 g/dL (32-36); Mean Corpuscular Volume 86.0 fL (81-99); Mean Platelet Vol. 11.0 fl (6.2-12.0); NRBC Flagged by Analyzer 0 % (0-5); Platelet Count 122 K/mm3 (150-450); RBC Distribution Width CV 17.9 % (11.6-14.6); RBC Distribution Width SD 55.8 fl (35.1-43.9); Red Blood Count 4.22 M/mm3 (4.2-5.4); White Blood Count 9.8 K/mm3 (4.4-11.0)
[2025-08-08 22:57] LABS: Ammonia 12.1 umol/L (11-51)
[2025-08-08 22:58] VITALS: BP 162/82; PULSE 50; RESP 14; O2SAT 100
[2025-08-08 22:59] LABS: Alcohol, Blood (Medical)-Serum < 10.1 mg/dL (<=10.0)
[2025-08-08 23:00] VITALS: BP 162/82; PULSE 50; RESP 14; O2SAT 100
[2025-08-08 23:00] LABS: CPK Total, Creatine Kinase 180 U/L (24-195); Magnesium 3.0 mg/dL (1.5-2.2); Prothrombin Time (Protime)PT. 14.9 SECONDS (11.7-14.9)
[2025-08-08 23:01] LABS: AST(SGOT) 24 U/L (<=31); Alanine Aminotransfer ALT/SGPT 23 U/L (<=34); Albumin, Serum 4.0 g/dL (3.4-4.8); Alkaline Phosphatase 104 U/L (35-104); Anion Gap 16 (5-15); BUN 80 mg/dL (4-19); BUN/Creat Ratio 20.5 RATIO (10-20); Bilirubin, Direct 0.18 mg/dL (0.00-0.30); Calcium,Total 9.4 mg/dL (7.6-11.0); Carbon Dioxide 22.8 mmol/L (21.0-32.0); Chloride 98 mmol/L (98-108); Estimated Creatinine Clearance 10.42 ml/min (50-250); Globulin 2.9 g/dL (2.2-4.2); Glucose 108 mg/dL (70-99); Partial Thromboplast Time 30.6 Seconds (24.1-36.2); Potassium 4.4 mmol/L (3.3-5.1)
[2025-08-08 23:08] LABS: Mucous, Urine 0 SEEN /hpf (<or=2+)
[2025-08-08 23:11] LABS: Color, Urine Yellow (Yellow); Glucose, Dipstick Normal (Normal); Ketone-Dipstick Negative (Negative); Leukocyte Esterase-Dipstick 25 /ul (Negative); Nitrite-Dipstick Negative (Negative); Occult Blood-Urine 10 /ul (Negative); Protein-Dipstick 30 mg/dl (Negative); Specific Gravity, Urine 1.020 (1.002-1.030); Urine Bilirubin Dipstick Negative (Negative)
[2025-08-08] MEDS: 0.9% Normal Saline (1000mL) 1,000 ML 150 ML IV (23:13)
[2025-08-08 23:23] LABS: Red Blood Cells-Urine 0-5 SEEN /hpf (0-5); Squamous Epithelial Cells - UA 0-5 SEEN /hpf (5-10)
--- NOTE | 2025-08-08 23:34 | HP.PCM.HOS_ITS ---
HPI - General General Date of Admission: 08/08/25 Date of Service: 08/08/25 Chief Complaint: Fall, confusion. HPI Narrative The patient is a 70 y/o F w/ PMHx: PAF, Chronic Hypoxic Hypoxic Respiratory Failure secondary to COPD with alpha-1 antitrypsin carrier status (2.5L q HS and per patient using 3L daily and PRN, last pulmonary visit noted 12/24/24), Anxiety and Depression, Tobacco use, Chronic back pain, Hx TIA, Chronic thrombocytopenia, Psoriatic arthritis, GERD, Carotid disease s/p BL CEA, Multiple sclerosis, CAD s/p PCI, PAD s/p peripheral PCI iliac artery, Hypothyroidism s/p partial thyroidectomy, Hx Brain aneurysm status post coiling, CKD stage III unclear subtype per GFR trending, Allergic rhinitis, Chronic anemia who presents to the [facility] ED on 08/09/2025 with history of mechanical fall with head injury with EMS noting upon arrival patient with dried blood to her head noted to be confused and occasionally repeating herself with blood sugar 121 with patient report of a mild headache prompting transition to the ED for further evaluation. Workup in the ED included T98.4, heart rate 66, BP 176/100, respiratory rate 18, 99% on room air with most recent repeat vitals T98.4, heart rate 52, BP 166/67, respiratory rate 14, 100% room air, CBC with WC is 9.8, hemoglobin 0.7, MCV 86, platelet 122 with left shift and lymphopenia, unremarkable coags, CMP with anion gap 16, BUN/creatinine 80/3.90, GFR 12, glucose 108, magnesium 3.0, hepatic profile unremarkable, ammonia level 12.1, total creatinine kinase 180, TSH pending per ED, urinalysis with mildly elevated specific gravity 1.020, protein 30, occult blood 10, negative nitrite, leukocyte esterase only 25 with urine WBCs 5-10 and 2+ bacteria, not marked appearing with urine culture pending per ED, CT brain with no acute intracranial findings with a moderate right frontal scalp hematoma/contusion, CT cervical spine with no acute cervical spinal fracture or malalignment, chest x-ray with no acute cardiopulmonary findings, CT facial/sinus with no acute calvarial or maxillofacial fracture concerns, plain film of the pelvis with no acute osseous injury, plain film of the shoulder with no acute osseous injury. In the ED patient ministered maintenance IV fluids and Tylenol 1000 mg p.o. x 1. PFSH Medical History Essential hypertension Hypertensive emergency NSTEMI, initial episode of care Mitral stenosis On home oxygen therapy Atrial fibrillation Chronic low back pain Diastolic hypertension Elevated troponin Chest pain PAF (paroxysmal atrial fibrillation) Emphysema of lung Smoking greater than 30 pack years Nicotine dependence, cigarettes, uncomplicated New onset atrial fibrillation Elevated troponin Atrial fibrillation Hypothyroidism Smoker Coronary artery disease TIA (transient ischemic attack) Influenza A [place] (dyspnea on exertion) Atherosclerotic heart disease of [place] coronary artery without angina pectoris Cardiac murmur Nonsustained paroxysmal supraventricular tachycardia Multiple sclerosis Nonobstructive atherosclerosis of coronary artery Peripheral vascular occlusive disease Essential (primary) hypertension Bilateral carotid artery stenosis History of transient ischemic attack (TIA) Fatty liver Thrombocytopenia GERD (gastroesophageal reflux disease) Psoriatic arthritis Psoriasis Osteoporosis Osteoarthritis Goiter Multiple sclerosis HLD (hyperlipidemia) Angina pectoris Chronic pain syndrome Home Medications ?Medication ?Instructions ?Recorded ?Last Taken ?Type levothyroxine 50 mcg tablet 50 mcg PO DAILY thyroid 04/21/25 History dextromethorphan-guaifenesin ER 60 1 tab PO Q12H PRN c ough/congest 02/19/24 03/19/25 History mg-1,200 mg tab,extend release,12hr (Mucinex DM) famotidine 40 mg tablet 40 mg PO QDAY PRN indigestio n 11/24/24 03/19/25 History cholecalciferol (vitamin D3) 125 125 mcg PO DAILY supp lement 04/18/25 Unknown History mcg (5,000 unit) capsule docusate sodium 100 mg capsule 100 mg PO BID stool sof tener 7 04/18/25 Unknown Rx (Colace) days #14 caps polysaccharide iron complex 150 mg 150 mg PO DAILY 90 days #90 caps 04/22/25 Unknown Rx iron capsule (Ferrex) amlodipine 2.5 mg tablet 2.5 mg PO QDAY bp 05/13/25 U nknown History capsaicin 0.1 % topical cream 1 applic topical TID #60 grams 05/19/25 Unknown Rx food supplemt, lactose-reduced 120 ml PO TIDCM #21,330 mL 06/07/25 Unknown Rx 0.08 gram-1.5 kcal/mL oral liquid (Ensure Plus High Protein) baclofen 10 mg tablet 10 mg PO TID #0 tabs 5 Unknown Rx gabapentin 300 mg capsule 300 mg PO TID #0 caps Unknown Rx oxycodone 5 mg tablet 10 mg (2 x 5 mg) PO Q6H PRN PRN 06/09/25 Unknown Rx Pain Score 4-10 3 days #15 tabs pantoprazole 40 mg tablet,delayed 40 mg PO BIDCM #1 TA B 06/09/25 Unknown Rx release (Protonix) paroxetine HCl 10 mg tablet 10 mg PO DAILY #0 tabs Unknown Rx potassium chloride 20 mEq 20 meq PO BIDCM #0 tabs 05/20 01/13 Unknown Rx tablet,extended release(part/cryst) quetiapine 25 mg tablet 50 mg (2 x 25 mg) PO QHS #0 tabs 06/09/25 Unknown Rx carvedilol 3.125 mg tablet 3.125 mg PO BIDCM heart #18 0 tabs 07/22/25 Unknown Rx apixaban 5 mg tablet (Eliquis) 5 mg PO Q12H anticoagul ation #180 08/03/25 Unknown Rx tabs rosuvastatin 20 mg tablet 20 mg PO QHS hld #90 tabs Unknown Rx furosemide 40 mg tablet 40 mg PO QDAY 08/06/25 Unkno wn History Allergy/AdvReac Type Severity Reaction Status Date / Time colestipol (From Colestid) Allergy Mild unknown Verified 08/08/25 21:58 pregabalin (From Lyrica) Allergy Mild Hives Verified 08/08/25 21:58 amitriptyline Allergy Rash Verified 08/08/25 21:58 temazepam (From Restoril) AdvReac Mild Nausea/Vom/ Verified 08/08/25 21:58 Diarrhea Antihistamines - Alkylamine AdvReac Nausea/Vom/ Verified 08/08/25 21:58 Diarrhea Antihistamines - Ethanolamine AdvReac Nausea/Vom/ Verified 08/08/25 21:58 Diarrhea Antihistamines - AdvReac Nausea/Vom/ Verified 08/08/25 21:58 Ethylenediamine Diarrhea Antihistamines - Piperazine AdvReac Nausea/Vom/ Verified 08/08/25 21:58 Diarrhea Antihistamines - Piperidine AdvReac Nausea/Vom/ Verified 08/08/25 21:58 Diarrhea aspirin AdvReac I'M ON Verified 08/08/25 21:58 BLOOD THINNERS codeine AdvReac Nausea Verified 08/08/25 21:58 Corticosteroids AdvReac Upset Verified 08/08/25 21:58 (Glucocorticoids) Stomach morphine AdvReac Nausea Verified 08/08/25 21:58 [id number]-UWM-CnS Reductase AdvReac Nausea Verified 08/08/25 21:58 Inhibitor (Wsfutes-Ogt-Tdn Reductase Inhibitor) Family History Mother Cancer CAD (coronary artery disease) Brain tumor Grandfather CVA (cerebral vascular accident) Father CAD (coronary artery disease) Ruptured abdominal aortic aneurysm (AAA) Sister Brain aneurysm Surgical History History of coronary artery stent placement History of appendectomy History of cholecystectomy History of angioplasty of peripheral vessel (07/11/19) Stenosis of left subclavian artery History of left heart catheterization (01/25/15) S/P coil embolization of cerebral aneurysm History of angioplasty of peripheral vessel History of right-sided carotid endarterectomy History of left-sided carotid endarterectomy History of partial thyroidectomy (11/30/05) History of hemorrhoidectomy History of hysterectomy History of section Brain aneurysm Fracture of right lower leg S/P insertion of iliac artery stent History of left breast biopsy H/O hemorrhoidectomy S/P hysterectomy H/O: S/P thyroidectomy Social History household members: none housing: apartment Smoking Status: Current every day smoker tobacco type: cigarettes alcohol intake: never caffeine: Yes Type: coffee and tea ROS Review of Systems ROS Unobtainable: due to encephalopathy Vital Signs Vital Signs Vital Signs: 08/08/25 21:58 08/08/25 22:58 08/08/25 23:00 Temperature 98.4 F Temperature Source Oral Pulse Rate 66 50 L 50 L Respiratory Rate 18 14 14 Blood Pressure 176/100 H 162/82 H 162/82 H Blood Pressure Mean 125 108 108 Pulse Ox 99 100 100 Oxygen Delivery Method Room Air Room Air Room Air Weight Weight: 110 lb 0.171 oz Body Mass Index (BMI) 18.3 Physical Exam Narrative Physical Examination: General: Awake, alert, oriented to self, place and recent events but is perseverating about the type of pill she takes and is difficult to sidetracked, follows some commands, seated upright in the ED bed, no acute distress. Skin: Normal color, normal turgor, no icterus, no cyanosis except occasional stage ecchymoses, abrasion including recent fall with scalp laceration with bleeding abated. HEENT: AT aside from scalp laceration/NC, EOMI, PERRLA, dry MM, unable to discern carotid bruits, no marked JVD noted. Lungs: Diminished, greater bases, occasional end expiratory wheeze, coughing during evaluation. Heart: Regular rate and rhythm; no gallop, rub audible, + SM. Abdomen: Soft, NTTP, ND, normal BS, no appreciated HSM. Extremities: No cyanosis, clubbing, or edema. See skin. Neurological: Patient awake, alert, oriented as noted, cognitive function not baseline intact; pupils equally reactive to light and accommodation, cranial nerves gross normal, moving all 4 extremities, no focal deficits, strength moderately to severely global decrease secondary to acute presentation. Psychiatric: Affect appears fatigued, no acute evidence of depressive or anxiety feelings but does have underlying history Results Lab / Micro Data 08/08/25 22:17 08/08/25 22:17 Labs: Laboratory Results - last 24 hr 08/08/25 22:17: WBC 9.8, RBC 4.22, Hgb 11.7 L, Hct 36.3 L, MCV 86.0, MCH 27.7, MCHC 32.2, RDW Std Deviation 55.8 H, RDW Coeff of David 17.9 H, Plt Count 122 L, MPV 11.0, Immature Gran % (Auto) 0.500, Neut % (Auto) 80.1 H, Lymph % (Auto) 8.0 L, [place] % (Auto) 7.7, Eos % (Auto) 3.4, Baso % (Auto) 0.3, Absolute Neuts (auto) 7.9 H, Absolute Lymphs (auto) 0.78 L, Nucleated RBC % 0, PT 14.9, INR 1.2, APTT 30.6, Sodium 137, Potassium 4.4, Chloride 98, Carbon Dioxide 22.8, Anion Gap 16 H, BUN 80 H, Creatinine 3.90 H, Estim Creat Clear Calc 10.42 L, Est GFR (MDRD) Non-Af 12 L, BUN/Creatinine Ratio 20.5 H, Glucose 108 H, Calcium 9.4, Magnesium 3.0 H, Total Bilirubin 0.35, Direct Bilirubin 0.18, AST 24, ALT 23, Alkaline Phosphatase 104, Ammonia 12.1, Total Creatine Kinase 180, Total Protein 6.9, Albumin 4.0, Globulin 2.9, Ethyl Alcohol < 10.1 08/08/25 23:00: Urine Color Yellow, Urine Clarity Clear, Urine pH 5.0, Ur Specific Hartman 1.020, Urine Protein 30 H, Urine Glucose (UA) Normal, Urine Ketones Negative, Urine Occult Blood 10 H, Urine Nitrite Negative, Urine Bilirubin Negative, Urine Urobilinogen Normal, Ur Leukocyte Esterase 25 H, Urine RBC 0-5 SEEN, Urine WBC 5-10 SEEN, Ur Squamous Epith Cells 0-5 SEEN, Ur Renal Epithelial Cell 0-5 SEEN, Urine Bacteria 2+, Hyaline Casts 10-25 SEEN, Urine Mucus 0 SEEN Imaging Radiology Impression Brain CT 08/08/25 22:13 IMPRESSION: 1. No acute intracranial abnormality. 2. Moderate right frontal scalp hematoma/contusion. 3. No acute calvarial or maxillofacial fracture. 4. No acute cervical spine fracture or malalignment. 5. Additional non-acute ancillary findings, as described above. Reading Location: [facility] Cervical Spine CT 08/08/25 22:13 IMPRESSION: 1. No acute intracranial abnormality. 2. Moderate right frontal scalp hematoma/contusion. 3. No acute calvarial or maxillofacial fracture. 4. No acute cervical spine fracture or malalignment. 5. Additional non-acute ancillary findings, as described above. Reading Location: [facility] Chest X-Ray 08/08/25 22:13 IMPRESSION: No Acute Findings. Reading Location: [facility] Facial/Sinus 08/08/25 22:13 IMPRESSION: 1. No acute intracranial abnormality. 2. Moderate right frontal scalp hematoma/contusion. 3. No acute calvarial or maxillofacial fracture. 4. No acute cervical spine fracture or malalignment. 5. Additional non-acute ancillary findings, as described above. Reading Location: [facility] Pelvis X-Ray 08/08/25 22:13 IMPRESSION: No radiographic evidence of an acute osseous injury. - Findings, limitations and recommendations discussed above. Reading Location[facility] Shoulder X-Ray 08/08/25 22:15 IMPRESSION: No radiographic evidence of an acute osseous injury at the right shoulder. - Findings discussed above. Reading Location: [facility] Assessment & Plan Assessment/Plan (1) CHRISTOPHER (acute kidney injury): PLAN: Plan The patient is a 70 y/o F w/ PMHx: PAF, Chronic Hypoxic Hypoxic Respiratory Failure secondary to COPD with alpha-1 antitrypsin carrier status (2.5L q HS and per patient using 3L daily and PRN, last pulmonary visit noted 12/24/24), Anxiety and Depression, Tobacco use, Chronic back pain, Hx TIA, Chronic thrombocytopenia, Psoriatic arthritis, GERD, Carotid disease s/p BL CEA, Multiple sclerosis, CAD s/p PCI, PAD s/p peripheral PCI iliac artery, Hypothyroidism s/p partial thyroidectomy, Hx Brain aneurysm status post coiling, CKD stage III unclear subtype per GFR trending, Allergic rhinitis, Chronic anemia who presents to the [facility] ED on 08/09/2025 with history of mechanical fall with head injury with EMS noting upon arrival patient with dried blood to her head noted to be confused and occasionally repeating herself with blood sugar 121 with patient report of a mild headache prompting transition to the ED for further evaluation. #1. Acute kidney injury on CKD stage III unclear subtype, unclear etiology, potentially nephrotoxic medication in addition to dehydration/poor intake but uncertain: Will admit to PCU given anticoagulant status with recent fall with plan repeat CT head as noted #2, admission BUN/Cr 80/3.90, GFR 12, prior baseline creatinine noted to be primarily 0.9-1.2. Will judiciously hydrate, hold nephrotoxic medications and repeat chemistry in AM. Will obtain renal ultrasound, obtain FeNa assessment and request nephrology early involvement. #2. Mechanical fall with moderate right frontal scalp hematoma/contusion: Patient with serial fall history, fortunately no other acute finding on imaging of the head, neck, face, pelvis and shoulder, temporally hold anticoagulant therapy, may need to reassess chronic usage of this medication however she is a vasculopath, maintain on fall and aspiration precautions, PT/OT/case management consult for discharge planning. Given no obvious source for mild confusion urine drug screen is pending and will plan for repeat CT head 08/09/2025 to assure no acute concerning findings given anticoagulant history however may need to consider MRI brain pending further evaluation. #3. Encephalopathy, suspected multifactorial secondary to #1, #2: No obvious source of infection, UA not marked appearing however urine culture is pending, chest x-ray not marked appearing, afebrile upon presentation, as noted plan for hold on anticoagulant therapy with repeat CT head 08/09/25 AM, UDS requested, TSH pending. #4. Chronic COPD with chronic hypoxic respiratory failure with alpha-1 antitrypsin carrier status: Will maintain on home oxygen supplementation with normally 2.5 L nightly and per day 3 L as well as as needed, will maintain on ATC budesonide therapy, PRN albuterol, HOB, IS parameters. #5. Valvular heart disease: Most recent echocardiogram 03/19/2025 with normal LV size, LVEF 65%, bubble contrast study negative, no regional wall motion abnormalities, mean transmitral valve gradient 9 mmHg, moderate MVI, moderate MV stenosis. #6. CAD, PAD: Status post coronary and peripheral iliac artery PCI, recent evaluation and admission as noted, continue baby aspirin, noted statin intolerance, continue coreg. Hold Eliquis given #2, holding lisinopril given acute kidney injury as noted. #7. History of brain aneurysm: Status post previous coiling, encourage continued follow-up outpatient and evaluation as previously arranged. #8. PAF: Continue Coreg, temporarily holding Eliquis given fall with plan repeat CT head as noted #2. #9. Anxiety and depression: Given significant kidney injury with reduced GFR will temporally hold Paxil. #10. History of TIA: Will continue baby aspirin, noted statin intolerance, continue hypertensive regimen with hold on nephrotoxic medication. Holding Eliquis given mechanical fall as noted #[address] head to be cautious. #11. Carotid disease: Status post bilateral carotid endarterectomy, continue baby aspirin, noted statin intolerance, continue hypertensive regimen aside from hold on nephrotoxic medications. Holding Eliquis given mechanical fall as noted #[address] head to be cautious. #12. Psoriatic arthritis: Per current list does not appear to be on any chronic suppressive type therapy, continue patient chronic pain regimen cautiously. #13. Multiple sclerosis: Complicates presentation, maintain on fall precautions, given significant confusion temporarily holding baclofen and gabapentin regimen, UDS requested as noted above, PT/OT consulted for discharge planning. #14. Chronic normocytic anemia: Admission hemoglobin 11.7, MCV 86, baseline hemoglobin more recently 08-29, stable, continue to trend. #15. Hypertension: Continue home regimen including amlodipine, Coreg regimen, PRN hydralazine. Temporally holding lisinopril given acute kidney injury. #16. Hyperlipidemia: Noted statin intolerance. #17. Hypothyroidism: Status post partial thyroidectomy, continue patient home levothyroxine regimen. TSH pending per ED. #18. Tobacco Abuse: Encouraged cessation, inpatient consultation per RT, NR if desired. #19. Allergic rhinitis: We will continue patient home ipratropium nasal spray. #20. GERD: PPI. #21. Chronic thrombocytopenia: Unclear etiology, admission platelets 147, previous admission had been normal range, last noted 12/17/2024 platelets 230, continue closely monitor. #22. DVT prophylaxis: Holding Eliquis given recent mechanical fall as noted pending repeat CT head, SCDs. #21. CODE status: Patient HCPOA and living will are not in place but previously she has noted that she would want her 2 children to be her medical decision makers. Will continue code status based on her most recent previous CODE STATUS request of full code. Charges/Coding Visit Charges Inpatient E&M: 77844 Init Hosp L3
--- NOTE | 2025-08-08 23:39 | EX.ED.DYSGE1 ---
HPI History of Present Illness Chief Complaint: Alt LOC Informant: patient and EMS Limited: other (Confusion) Narrative Narrative: Patient is a 70-year-old female with past medical history of hypertension as well as paroxysmal atrial fibrillation currently on Eliquis. According to EMS patient activated her life alert. They state that when they arrived she was awake but confused and found on the floor. It is unknown what caused the fall as the patient is confused at this time and does not remember how she fell. The patient endorses a headache as well as right shoulder pain at this time. [facility] Medical History Essential hypertension Hypertensive emergency NSTEMI, initial episode of care Mitral stenosis On home oxygen therapy Atrial fibrillation Chronic low back pain Diastolic hypertension Elevated troponin Chest pain PAF (paroxysmal atrial fibrillation) Emphysema of lung Smoking greater than 30 pack years Nicotine dependence, cigarettes, uncomplicated New onset atrial fibrillation Elevated troponin Atrial fibrillation Hypothyroidism Smoker Coronary artery disease TIA (transient ischemic attack) Influenza A [place] (dyspnea on exertion) Atherosclerotic heart disease of [place] coronary artery without angina pectoris Cardiac murmur Nonsustained paroxysmal supraventricular tachycardia Multiple sclerosis Nonobstructive atherosclerosis of coronary artery Peripheral vascular occlusive disease Essential (primary) hypertension Bilateral carotid artery stenosis History of transient ischemic attack (TIA) Fatty liver Thrombocytopenia GERD (gastroesophageal reflux disease) Psoriatic arthritis Psoriasis Osteoporosis Osteoarthritis Goiter Multiple sclerosis HLD (hyperlipidemia) Angina pectoris Chronic pain syndrome Home Medications ?Medication ?Instructions ?Recorded ?Last Taken ?Type levothyroxine 50 mcg tablet 50 mcg PO DAILY thyroid 08/11/21 04/21/25 History dextromethorphan-guaifenesin ER 60 1 tab PO Q12H PRN cough/congest 02/19/24 03/19/25 History mg-1,200 mg tab,extend release,12hr (Mucinex DM) famotidine 40 mg tablet 40 mg PO QDAY PRN indigestion 11/24/24 03/19/25 History cholecalciferol (vitamin D3) 125 125 mcg PO DAILY supplement 04/18/25 Unknown History mcg (5,000 unit) capsule docusate sodium 100 mg capsule 100 mg PO BID stool softener 7 04/18/25 Unknown Rx (Colace) days #14 caps polysaccharide iron complex 150 mg 150 mg PO DAILY 90 days #90 caps 04/22/25 Unknown Rx iron capsule (Ferrex) amlodipine 2.5 mg tablet 2.5 mg PO QDAY bp 05/13/25 Unknown History capsaicin 0.1 % topical cream 1 applic topical TID #60 grams 05/19/25 Unknown Rx food supplemt, lactose-reduced 120 ml PO TIDCM #21,330 mL 06/07/25 Unknown Rx 0.08 gram-1.5 kcal/mL oral liquid (Ensure Plus High Protein) baclofen 10 mg tablet 10 mg PO TID #0 tabs 06/09/25 Unknown Rx gabapentin 300 mg capsule 300 mg PO TID #0 caps 06/09/25 Unknown Rx oxycodone 5 mg tablet 10 mg (2 x 5 mg) PO Q6H PRN PRN 06/09/25 Unknown Rx Pain Score 4-10 3 days #15 tabs pantoprazole 40 mg tablet,delayed 40 mg PO BIDCM #1 TAB 06/09/25 Unknown Rx release (Protonix) paroxetine HCl 10 mg tablet 10 mg PO DAILY #0 tabs 06/09/25 Unknown Rx potassium chloride 20 mEq 20 meq PO BIDCM #0 tabs 06/09/25 Unknown Rx tablet,extended release(part/cryst) quetiapine 25 mg tablet 50 mg (2 x 25 mg) PO QHS #0 tabs 06/09/25 Unknown Rx carvedilol 3.125 mg tablet 3.125 mg PO BIDCM heart #180 tabs 07/22/25 Unknown Rx apixaban 5 mg tablet (Eliquis) 5 mg PO Q12H anticoagulation #180 08/03/25 Unknown Rx tabs rosuvastatin 20 mg tablet 20 mg PO QHS hld #90 tabs 08/05/25 Unknown Rx furosemide 40 mg tablet 40 mg PO QDAY 08/06/25 Unknown History Allergy/AdvReac Type Severity Reaction Status Date / Time colestipol (From Colestid) Allergy Mild unknown Verified 08/08/25 21:58 pregabalin (From Lyrica) Allergy Mild Hives Verified 08/08/25 21:58 amitriptyline Allergy Rash Verified 08/08/25 21:58 temazepam (From Restoril) AdvReac Mild Nausea/Vom/ Verified 08/08/25 21:58 Diarrhea Antihistamines - Alkylamine AdvReac Nausea/Vom/ Verified 08/08/25 21:58 Diarrhea Antihistamines - Ethanolamine AdvReac Nausea/Vom/ Verified 08/08/25 21:58 Diarrhea Antihistamines - AdvReac Nausea/Vom/ Verified 08/08/25 21:58 Ethylenediamine Diarrhea Antihistamines - Piperazine AdvReac Nausea/Vom/ Verified 08/08/25 21:58 Diarrhea Antihistamines - Piperidine AdvReac Nausea/Vom/ Verified 08/08/25 21:58 Diarrhea aspirin AdvReac I'M ON Verified 08/08/25 21:58 BLOOD THINNERS codeine AdvReac Nausea Verified 08/08/25 21:58 Corticosteroids AdvReac Upset Verified 08/08/25 21:58 (Glucocorticoids) Stomach morphine AdvReac Nausea Verified 08/08/25 21:58 Thvyouz-[id number]-YkM Reductase AdvReac Nausea Verified 08/08/25 21:58 Inhibitor (Akzmwhq-Kka-Wjs Reductase Inhibitor) Family History Mother Cancer CAD (coronary artery disease) Brain tumor Grandfather CVA (cerebral vascular accident) Father CAD (coronary artery disease) Ruptured abdominal aortic aneurysm (AAA) Sister Brain aneurysm Surgical History History of coronary artery stent placement History of appendectomy History of cholecystectomy History of angioplasty of peripheral vessel (07/11/19) Stenosis of left subclavian artery History of left heart catheterization (01/25/15) S/P coil embolization of cerebral aneurysm History of angioplasty of peripheral vessel History of right-sided carotid endarterectomy History of left-sided carotid endarterectomy History of partial thyroidectomy (11/30/05) History of hemorrhoidectomy History of hysterectomy History of section Brain aneurysm Fracture of right lower leg S/P insertion of iliac artery stent History of left breast biopsy H/O hemorrhoidectomy S/P hysterectomy H/O: S/P thyroidectomy Social History household members: none housing: apartment Smoking Status: Light Smoker (<10/day) alcohol intake: never caffeine: Yes Type: coffee and tea ROS ROS ED ROS Narrative Please note review of systems may be unreliable as patient is confused at this time Constitutional Constitutional ED: Denies chills or fever(s) Eyes Eyes: Denies change in vision ENT ENT ED: Denies sore throat Cardiovascular Cardiovascular: Denies chest pain Respiratory/Chest Respiratory/Chest: Denies cough or dyspnea Gastrointestinal Gastrointestinal: Denies abdominal pain, diarrhea, nausea or vomiting Genitourinary Genitourinary ED: Denies dysuria Musculoskeletal Musculoskeletal: Reports other Details: Positive right shoulder pain ; Denies back pain or neck pain Integumentary Reports Abrasions; Denies rash Neurologic Neurologic: Reports headache(s) Hematologic/Lymphatic Hematologic/Lymphatic: Reports easy bleeding and easy bruising EXAM Physical Exam Const Vital Signs: 08/08/25 21:58 08/08/25 22:58 08/08/25 23:00 Temperature 98.4 F Temperature Source Oral Pulse Rate 66 50 L 50 L Respiratory Rate 18 14 14 Blood Pressure 176/100 H 162/82 H 162/82 H Blood Pressure Mean 125 108 108 Pulse Ox 99 100 100 Oxygen Delivery Method Room Air Room Air Room Air Positive well nourished and well developed General Appearance ED: well developed HEENT HEENT Narrative: Patient has a large hematoma to the right frontal portion of the scalp. It is approximately 5 x 6 cm in size. There is a area of scalp laceration along the right anterior parietal portion as well without active bleeding. No signs of depressed or basilar skull fracture No septal hematoma noted Eyes PERRL and EOMs intact bilaterally Eyes Narrative: There is a subconjunctival hemorrhage noted to the right eye Neck supple Neck Narrative: No bony deformity or step-off of the cervical spine; no midline tenderness to palpation Chest Wall palpation of chest normal Chest Narrative: No pain on palpation of the chest wall No bony deformity or subcutaneous emphysema noted Resp normal respiratory effort and clear to auscultation bilaterally Resp Narrative: Breath sounds are diminished throughout but overall clear to auscultation without signs of respiratory distress Cardio regular rate and regular rhythm Rate: other Other Details: Radial and carotid pulses are equal and symmetric GI non-tender, non-distended and no masses GI Narrative: Abdomen is soft nontender and nondistended with hypoactive bowel sounds. No voluntary guarding or rigidity or pulsatile mass No abrasions or ecchymosis noted to the abdominal wall. Auscultation: hypoactive bowel sounds Palpation: soft Back/Spine Back/Spine Narrative: No bony deformity or step-off of the thoracic or lumbar spine; no midline tenderness to palpation Extremity Extremity Narrative: There is no shortening or external rotation of either lower extremity. Pelvis is stable. There is ecchymosis and soft tissue swelling noted to the anterior aspect of the right shoulder; however no obvious bony deformity or joint effusion or sulcus sign noted. All compartments are soft and compressible going against compartment syndrome Neuro CN's II-XII intact bilaterally Neuro Narrative: Patient is awake and alert to person only at this time. She is able to tell me her name and follow commands but has difficulty answering questions and keeps repeating the same phrases over and over GCS is 14 NIH stroke scale score of 1 secondary to confusion Sensorium / Orientation: alert Psych mental status grossly normal Skin Skin Narrative: Large hematoma with scalp laceration as documented above as well as ecchymosis to the right shoulder MDM MDM MDM Narrative Medical decision making narrative: Patient arrived to the ER hypertensive but has a past medical history of this. With the fact she is on Eliquis and struck her head there is high concern for subarachnoid or subdural hemorrhage so CT of the head was obtained. CT of the face and neck were ordered as well in order to check for potential facial fracture versus cervical compression fracture. CTs revealed no signs of acute trauma. As it is unknown how long the patient was down there is concern for rhabdomyolysis so CPK was obtained. This was normal going against rhabdomyolysis. In order to check for the cause of her altered mental status such as intoxication or hepatic encephalopathy or infectious process basic labs and a urine sample ordered as well. Urine sample showed no obvious signs of UTI. THS is normal going against myxedema coma. The patient's kidney function however is elevated at 3.9 when chart review reveals previous was 1.85. At this time the patient has acute kidney injury as well as altered mental status and as she lives at home alone is not safe to be discharged. As she does not have a traumatic subarachnoid subdural hemorrhage I do not feel the need for transfer. The case was discussed with hospitalist who agrees excepted patient for continued care regarding her CHRISTOPHER and encephalopathy. History & Record Review Additional record(s) reviewed:: Prior ED visit Lab Data Attestation: I reviewed the patient's lab results. Labs: Laboratory Results - last 24 hr 08/08/25 08/08/25 08/08/25 22:17 22:47 23:00 WBC 9.8 RBC 4.22 Hgb 11.7 L Hct 36.3 L MCV 86.0 MCH 27.7 MCHC 32.2 RDW Std Deviation 55.8 H RDW Coeff of David 17.9 H Plt Count 122 L MPV 11.0 Immature Gran % (Auto) 0.500 Neut % (Auto) 80.1 H Lymph % (Auto) 8.0 L [place] % (Auto) 7.7 Eos % (Auto) 3.4 Baso % (Auto) 0.3 Absolute Neuts (auto) 7.9 H Absolute Lymphs (auto) 0.78 L Nucleated RBC % 0 PT 14.9 INR 1.2 APTT 30.6 Sodium 137 Potassium 4.4 Chloride 98 Carbon Dioxide 22.8 Anion Gap 16 H BUN 80 H Creatinine 3.90 H Estim Creat Clear Calc 10.42 L Est GFR (MDRD) Non-Af 12 L BUN/Creatinine Ratio 20.5 H Glucose 108 H Calcium 9.4 Phosphorus 5.6 H Magnesium 3.0 H Total Bilirubin 0.35 Direct Bilirubin 0.18 AST 24 ALT 23 Alkaline Phosphatase 104 Ammonia 12.1 Total Creatine Kinase 180 Total Protein 6.9 Albumin 4.0 Globulin 2.9 TSH 2.120 Urine Color Yellow Urine Clarity Clear Urine pH 5.0 Ur Specific [place] 1.020 Urine Protein 30 H Urine Glucose (UA) Normal Urine Ketones Negative Urine Occult Blood 10 H Urine Nitrite Negative Urine Bilirubin Negative Urine Urobilinogen Normal Ur Leukocyte Esterase 25 H Urine RBC 0-5 SEEN Urine WBC 5-10 SEEN Ur Squamous Epith Cells 0-5 SEEN Ur Renal Epithelial Cell 0-5 SEEN Urine Bacteria 2+ Hyaline Casts 10-25 SEEN Urine Mucus 0 SEEN Urine Opiates Screen NEGATIVE U Buprenorphine Qual NEGATIVE Ur Oxycodone Screen PRESUMPTIVE POSITIVE Urine Methadone Screen NEGATIVE Urine Fentanyl Screen NEGATIVE Ur Barbiturates Screen NEGATIVE Ur Phencyclidine Scrn NEGATIVE Ur Amphetamines Screen NEGATIVE U Benzodiazepines Scrn NEGATIVE Urine Cocaine Screen NEGATIVE U Cannabinoids Screen NEGATIVE Ethyl Alcohol < 10.1 Radiography Diagnostic Testing: Clinical Impression(s) from Imaging Studies Brain CT 08/08/25 22:13 IMPRESSION: 1. No acute intracranial abnormality. 2. Moderate right frontal scalp hematoma/contusion. 3. No acute calvarial or maxillofacial fracture. 4. No acute cervical spine fracture or malalignment. 5. Additional non-acute ancillary findings, as described above. Reading Location: [id number] Cervical Spine CT 08/08/25 22:13 IMPRESSION: 1. No acute intracranial abnormality. 2. Moderate right frontal scalp hematoma/contusion. 3. No acute calvarial or maxillofacial fracture. 4. No acute cervical spine fracture or malalignment. 5. Additional non-acute ancillary findings, as described above. Reading Location: [id number] Chest X-Ray 08/08/25 22:13 IMPRESSION: No Acute Findings. Reading [facility] 08/08/25 22:13 IMPRESSION: 1. No acute intracranial abnormality. 2. Moderate right frontal scalp hematoma/contusion. 3. No acute calvarial or maxillofacial fracture. 4. No acute cervical spine fracture or malalignment. 5. Additional non-acute ancillary findings, as described above. Reading Location: [id number] Pelvis X-Ray 08/08/25 22:13 IMPRESSION: No radiographic evidence of an acute osseous injury. - Findings, limitations and recommendations discussed above. Reading Location: [id number] Shoulder X-Ray 08/08/25 22:15 IMPRESSION: No radiographic evidence of an acute osseous injury at the right shoulder. - Findings discussed above. Reading Location: [facility] Chest x-ray as interpreted by the emergency medicine physician reveals no acute infiltrate pneumothorax or rib fracture Pelvis x-rays interpreted by the emergency medicine physician reveals degenerative changes without acute fracture or dislocation Right shoulder x-ray is interpreted by the emergency medicine physician reveals no acute fracture dislocation or joint effusion. Management Discussion w/another healthcare provider: Hospitalist Discharge Plan Dx/Rx/DC Orders Clinical Impression: Acute kidney injury, Head injury, Current use of [facility] anticoagulation, Altered mental status, Paroxysmal atrial fibrillation, Essential hypertension Disposition Disposition: Acute Care Hospital [facility] Discharge Date/Time: 08/09/25 00:20
[2025-08-08 23:42] LABS: Barbiturate Urine NEGATIVE (< 200 ng/mL); Benzodiazepine Urine NEGATIVE (< 200 ng/mL); PCP Urine NEGATIVE (< 25 ng/mL); THC Urine NEGATIVE (< 50 ng/mL)
--- NOTE | 2025-08-08 23:44 | ED.RN ---
Called and spoke with son Roberto, requested by patient, given update on pt being admitted. Roberto was asked if he knew what medications she is on and he did not know at this time. Other son who is also listed on pt records attempted to call and unable to reach at this time.
[2025-08-08 23:46] VITALS: BP 166/67; PULSE 52; RESP 14; TEMP 36.9; O2SAT 100
[2025-08-09] VITALS: BP 172/92; PULSE 63; RESP 18; O2SAT 100
--- OUTSIDE RECORDS SUMMARY | 2025-08-09 | XMS RPT_ITS | CCD ---
Author Organization [facility]ini[facility] Care Team Providers Care Supervisor [employer] Name Role Phone YOGESH ONOFRE Unavailable Unavailabl [...] Attending Provider Dr. Orlando Jacob Attending Provider 1([facility])[phone] Daron Benton Primary Care [...] Other Provider Dr. Joseph Desai Other Provider [phone] Samina Mortensen Other Provider Unavailable MD Keyona Davidson Other Provider Unavailable Dr. Daniel Edmonds Other Provider Dr. Isaias Scherer Other Provider Dr. Jorge Hurtado Attending Provider Dr. Jorge Hurtado Other Provider Dr. Brandon Gaming Other Provider Dr. Anita Amezcua Other Provider Dr. Pamela Pan Other Provider Unavailable Dr. Go Alejo Other Provider [phone] Jesus Alfonso Other Provider Dr. Kehinde [...] Care Provider Dr. Daron Benton Referring Provider [phone] Sachin Murillo Referring Provider Dr. Daron [...] Provider Unavailable Dr. Go Alejo Other Provider [phone] Jesus Alfonso Other Provider Dr. Kehinde [...] Provider Kati FOX, Dr. Strauss Other Provider [facility] [place] HERNANDEZ, Dr. Kowalski Attending Provider Kati FOX, Dr. Strauss Attending Provider [facility] , Dr. Kowalski Other Provider Baljit FOX, [...] Provider Kati FOX, Dr. Strauss Other Provider [facility] [place] HERNANDEZ, Dr. Kowalski Attending Provider Shirley FOX, Dr. Neha Lewis Other Provider Kati FOX, Dr. Strauss Attending Provider Shirley FOX, Dr. Neha Lewis Attending Provider Husam OFX, Dr. Kirby Attending Provider Gm HERNANDEZ, Dr. [...] Provider Linda FOX, Dr. Owens Attending Provider Unavaildanielle Murillo MD, Dr. Sachin Prieto Attending Provider Linda FOX, Dr. Owens Other Provider Unavailable Lisa HERNANDEZ, Dr. Brown Attending Provider Martín FOX, Dr. Sommer Hebert Attending Provider Esperanza FOX, Dr. Neri Primary Care Provider Kati FOX, Dr. Strauss Other Provider Kati FOX, Dr. Strauss Attending Provider Esperanza FOX, Dr. Neri Referring Provider Dr. Yasmani Haynes DO Attending Provider Kirk MULTI TOWNSHIP ASSESSOR-CIona Attending Provider Esperanza FOX, Dr. Neri Primary Care Provider Esperanza FOX, Dr. Neri Referring Provider Esperanza FOX, Dr. Neri Other Provider Elijah FOX, Dr. Tye Santos Attending Provider Elijah FOX, Dr. Tye Santos Referring Provider Robert MULTI TOWNSHIP ASSESSOR-C, Lizz Attending Provider Unavail able Robert MULTI TOWNSHIP ASSESSOR-C, Lizz Referring Provider Unavail jason Mckeon MD, Dr. Owens Admit Provider Unavailable Gm HERNANDEZ, Dr. Kowalski Attending Provider [phone] Gm HERNANDEZ, Dr. Kowalski Other Provider Yoselin FOX, Lucas Attending Provider Unavaildanielle Benton MD, Dr. Neri Primary Care Provider Esperanza FOX, Dr. Neri Referring Provider Dr. Romna Mckeon MD Referring Provider Unavaila singh Worrell DO, Dr. Kowalski Referring Provider Yoselin FOX, Dr. Zavala Attending Provider Larissa MULTI TOWNSHIP ASSESSOR-C, Karen Attending Provider Larissa MULTI TOWNSHIP ASSESSOR-C, Karen Attending Provider Shannan HERNANDEZ, Dr. Lake Emergency Provider Esperanza FOX, Dr. Neri Primary Care Provider Shannan HRENANDEZ, Dr. Lake Attending Provider ESPERANZA, DARON Primary Care Unavailable LIZZ LYNN Attending Unavailable LIZZ LYNN Attending Unavailable ESPERANZA, DARON Primary Care Unavailable LIZZ LYNN Attending Unavailable ESPERANZA, DARON Primary Care Unavailable Esperanza FOX, Dr. Neri Primary Care Physician Kingston FOX, Dr. Elmore Attending Physician Dr. Ramírez Onofre MD Emergency Department Physici an Dr. Yasmani Haynes DO Attending Physician Dr. Yasmani Haynes DO Emergency Department Physic fauzia Case FOX, Dr. Bardales Emergency Department Physician Lidia FOX, Dr. Sachin Prieto Admitting Physician Lidia FOX, Dr. Sachin Prieto Nurse Practitioner Dr. Roman Mckeon MD Attending Physician Unavail able Lidia FOX, Dr. Sachin Prieto Attending Physician Linda FOX, Dr. Owens Nurse Practitioner Unavaila singh Gonzalez DO, Dr. Brown Attending Physician Kirk MULTI TOWNSHIP ASSESSOR-CIona Attending Physician Esperanza FOX, Dr. Neri Nurse Practitioner Elijah FOX, Dr. Tye Santos Attending Physician Robert MARTÍNEZC, Lizz Attending Physician Gloria Mckeon MD, Dr. Owens Admitting Physician Unavail able Gm HERNANDEZ, Dr. Kowalski Attending Physician [phone] Gm HERNANDEZ, Dr. Kowalski Nurse Practitioner Lucas Wyatt MD Attending Physician Unavail able Larissa MENDOZA-CKaren Attending Physician Yoselin FOX, Dr. Zavala Attending Physician Shannan HERNANDEZ, Dr. Lake Attending Physician Shannan HERNANDEZ, Dr. Lake Emergency Department Physician Dr. Jeffy Willoughby MD Attending Physician Betsey Davenport Attending Physician Tye Barnett Referring Unavailable Benton, Daron Primary Care Unavailable Tye Barnett Attending Unavailable Neha Watson Attending Unavailable Trina Tyler Admitting Unavailable Benton, Daron Primary Care Unavailable Kofi Weiner Consulting Unavailabl e Trina Tyler Consulting Unavailable Sommer Resendiz Admitting Unavailable Dex Worrell Attending Unavailable Benjy Flores Referring Unavailable BelCarlos A cordon Consulting Unavailable Benton, Daron Primary Care Unavailable Sommer Resendiz Consulting Unavailable Roma Watsona Debbie Consulting Unavailable Jorge Hurtado Attending Unavailable Benton, Daron Primary Care Unavailable Benton, Daron Referring Unavailable Roman Mckeon Admitting Unavailable Dex Worrell Attending Unavailable Roman Mckeon Consulting Unavailable Benton, Daron Primary Care Unavailable Benton, Daron Primary Care Unavailable Jaya Campbell Attending Unavailable Benton, Daron Referring Unavailable Benton, Daron Attending Unavailable Benton, Daron Primary Care Unavailable Jeffy Willoughby Attending Unavailable Benton, Daron Primary Care Unavailable Lucas Fritz Attending Unavailabl e Benton, Daron Primary Care Unavailable Reodica Nuno Referring Unavailable Reodicdanielle Nuno Attending Unavailable Benton, Daron Primary Care Unavailable Ramírez Onofre Attending Unavailable Benton, Daron Primary Care Unavailable Yasmani Haynes Attending Unavailable Yasmani Haynes Referring Unavailable Benton, Daron Primary Care Unavailable Ramírez Onofre Attending Unavailable Benton, Daron Primary Care Unavailable Willoughby, Jeffy Attending Unavailable Benton, Daron Primary Care Unavailable Yasmani Haynes Attending Unavailable Benton, Daron Primary Care Unavailable Lizz Lynn Referring Unavailable Lizz Lynn Attending Unavailable Benton, Daron Primary Care Unavailable Tye Barnett Attending Unavailable Tye Barnett Referring Unavailable Benton, Daron Primary Care Unavailable Benton, Daron Consulting Unavailable Trina Tyler Admitting Unavailable Trina Tyler Consulting Unavailable Trina Tyler Attending Unavailable Benton, Daron Primary Care Unavailable Kofi Weiner Attending Unavailabl e Billyaabdifatah, Billyapradee Consulting Unavailabl e Karenam, Neha Debbie Consulting Unavailable Benton, Daron Primary Care Unavailable Betsey Davenport Attending Unavail able Benton, Daron Referring Unavailable Kotsonis, Sachin F Admitting Unavailable Kotsonis, Sachin F Referring Unavailable Kotsonis, Sachin F Consulting Unavailable Roman Mckeon Attending Unavailable Benton, Daron Primary Care Unavailable Kevin Gonzalez Attending Unavailable Dex Worrell Referring Unavailable Roman Mckeon Consulting Unavailable Rmoan Mckeon Admitting Unavailable Benton, Daron Primary Care Unavailable Roman Mckeon Attending Unavailable Dex Worrell Attending Unavailable Dex Worrell Consulting Unavailable Sommer Resendiz Admitting Unavailable MarkBenjy olson Referring Unavailable Belal, Farouk Consulting Unavailable Sukhi Parikhk Attending Unavailable Benton, Daron Primary Care Unavailable Sommer Resendiz Consulting Unavailable Shirley, Neha Debbie Consulting Unavailable Shirley, Neha Debbie Attending Unavailable Bhavik Smiley Attending Unavailable Dex Worrell Consulting Unavailable Dex Worrell Attending Unavailable Roman Mckeon Referring Unavailable Neha Watson Attending Unavailable Sommer Resendiz Attending Unavailable Betsey Davenport Attending Unavail able Benton, Daron Referring Unavailable Benton, Daron Primary Care Unavailable Benton, Daron Primary Care Unavailable Negar Mckeon Attending Unavailable Benton, Daron Referring Unavailable Kotsonis, Sachin F Admitting Unavailable Kotsonis, Sachin F Referring Unavailable Kotsonis, Sachin F Consulting Unavailable Kotsonis, Sachin F Attending Unavailable Benton, Daron Primary Care Unavailable Shahnaz Jacobl Attending Unavailable Betsey Davenport Referring Unavail able Orlando Jacob Consulting Unavailable Benton, Daron Primary Care Unavailable Jorge Hurtado Attending Unavailable Jorge Hurtado Referring Unavailable Benton, Daron Primary Care Unavailable Jorge Hurtado Attending Unavailable Brown, Jorge Referring Unavailable Benton, Daron Primary Care Unavailable Brown, Jorge Attending Unavailable Brown, Jorge Referring Unavailable Benton, Daron Primary Care Unavailable Benton, Daron Primary Care Unavailable Benton, Daron Attending Unavailable Lucas Fritz Attending Unavailabl e Benton, Daron Primary Care Unavailable Benton, Daron Primary Care Unavailable Jeffy Willoughby Attending Unavailable Benton, Daron Primary Care Unavailable Yasmani Haynes Attending Unavailable Roman Mckeon Attending Unavailable Roman Mckeon Consulting Unavailable Lucas Fritz Attending Unavailabl e Benton, Daron Primary Care Unavailable Iona Bradley Attending Unavailable Benton, Daron Referring Unavailable Benton, Daron Primary Care Unavailable Benton, Daron Primary Care Unavailable Lucas Wyatt Attending Unavailable Larissa MULTI TOWNSHIP ASSESSOR, Karen Attending Unavailable Benton, Daron Primary Care Unavailable Benton, Daron Primary Care Unavailable Larissa MULTI TOWNSHIP ASSESSOR, Karen Attending Unavailable Betsey Davenport Attending Unavail able Benton, Daron Referring Unavailable Benton, Daron Primary Care Unavailable Betsey Davenport Attending Unavail able Benton, Daron Referring Unavailable Benton, Daron Primary Care Unavailable Benton, Daron Referring Unavailable Benton, Daron Primary Care Unavailable Negar Mckeon Attending Unavailable Kevin Gonzalez Attending Unavailable Jorge Hurtado Attending Unavailable Brown, Jorge Referring Unavailable Benton, Daron Primary Care Unavailable Perry Hurtadok Consulting Unavailable Orlando Jacob Attending Unavailable Benton, Daron Primary Care Unavailable Trina Tyler Referring Unavailable Benton, Daron Primary Care Unavailable Kofi Weiner Attending Unavailabl e Orlando Jacob Attending Unavailable Benton, Daron Referring Unavailable Benton, Daron Primary Care Unavailable Benton, Daron Referring Unavailable Benton, Daron Primary Care Unavailable Negar Mckeon Attending Unavailable Kofi Weiner Attending Unavailabl e Benton, Daron Primary Care Unavailable Allergies Allergy Classification Reported Allergen(s) Allergy Type Date of Onset Reaction(s) Facility (4 sources) Antihistamines; Translations: [ANTIHISTAMINES] Propensity to adverse reactions to drug (disorder) 04-28-20 04 [facility] (3 sources) clopidogrel; Translations: [CLOPIDOGREL BISULFATE] Drug Allergy 12-18-19 12 Other: See Comments [facility] (20 sources) codeine; Translations: [CODEINE] Drug Allergy 04-28-20 04 Nausea [facility] (3 sources) fenofibrate; Translations: [FENOFIBRATE MICRONIZED] Drug Allergy 04-27-20 11 Intolerance [facility] (20 sources) fentaNYL; Translations: [FENTANYL] Drug Allergy 02-19-20 12 Other: See Comments [facility] (3 sources) Hmg-Coa Reductase Inhibitors (Statins); Translations: [[id number] REDUCTASE INHIBITORS] Propensity to adverse reactions to drug (disorder) 04-27-20 11 Intolerance [facility] (20 sources) morphine; Translations: [MORPHINE] Drug Allergy 04-28-20 04 Nausea, Vomiting [facility] (20 sources) predniSONE; Translations: [PREDNISONE] Drug Allergy 12-15-19 09 [facility] (20 sources) salicylic acid; Translations: [SALICYLATES] Drug Allergy 12-04-19 09 [facility] (20 sources) Amitriptyline Drug Allergy 03-12-20 19 Rash [facility] (20 sources) Aspirin; Translations: [aspirin] Drug Allergy 02-15-20 22 Ulcer (morphologic abnormality) [facility] (20 sources) Colestipol; Translations: [colestipol] Drug Allergy 02-15-20 22 unknown [facility] (20 sources) Ethylenediamine derivative antihistamine Propensity to adverse reactions 02-15-20 22 Nausea/Vom/[facility] (20 sources) pregabalin Drug Allergy 02-15-20 22 Hives [facility] (20 sources) Temazepam Drug Allergy 02-15-20 22 Nausea/Vom/[facility] (20 sources) Antihistamines - Alkylamine; Translations: [Antihistamines - Alkylamine] Propensity to adverse reactions 02-15-20 22 Nausea/Vom/[facility] (20 sources) Antihistamines - Ethanolamine; Translations: [Antihistamines - Ethanolamine] Propensity to adverse reactions 02-15-20 22 Nausea/Vom/[facility] (20 sources) Antihistamines - Piperazine; Translations: [Antihistamines - Piperazine] Propensity to adverse reactions 02-15-20 22 Nausea/Vom/[facility] (20 sources) Antihistamines - Piperidine; Translations: [Antihistamines - Piperidine] Propensity to adverse reactions 02-15-20 22 Nausea/Vom/[facility] (20 sources) Ujbjouf-Fuq-Cie Reductase Inhibitor; Translations: [Hsfilxm-Asl-Zek Reductase Inhibitor] Propensity to adverse reactions 02-15-20 22 Nausea [facility] (8 sources) STEROIDS BY MOUTH Propensity to adverse reactions 02-15-20 22 Upset Stomach [facility] (1 source) HMG-CoA reductase inhibitor; Translations: [statins] Drug allergy [facility] (20 sources) Glucocorticoid Receptor Agonists Propensity to adverse reactions 03-16-20 23 Upset Stomach [facility] (18 sources) clopidogrel Drug Allergy 12-18-19 12 [facility] (18 sources) Fenofibrate Drug Allergy 04-27-20 11 [facility] (18 sources) Antihistamines, Diphenhydramine-Ty pe Drug Intolerance 09-17-20 [facility] (1 source) Amitriptyline Drug Allergy 08-05-20 [facility] (1 source) Aspirin Drug Allergy 08-05-20 [facility] (1 source) Colestipol Drug Allergy 08-05-20 [facility] (1 source) Corticosteroids Drug allergy (disorder) 08-05-20 [facility] (1 source) pregabalin Drug Allergy 08-05-20 [facility] (1 source) Temazepam Drug Allergy 08-05-20 [facility] (1 source) Antihistamines - Ethylenediamine Drug allergy (disorder) 08-05-20 [facility] Repository Medications Current Medications Medication Drug Class(es) Dates Sig (Normalized) Sig (Original) acetaminophen 325 mg / HYDROcodone bitartrate 5 mg oral tablet (1 source) Opioid Agonist take 1 tablet by mouth every six hours as needed HYDROcodone-acetam inophen (NORCO) 5-325 mg per tablet Take 1 tablet by mouth every 6 hours as needed. Active [id number] actuat albuterol 0.09 mg/actuat metered dose inhaler (1 source) beta2-Adrenergic Agonist Start: 05-26-2020 take 2 puff(s) by inhalation every four hours as needed for wheezing albuterol HFA (VENTOLIN HFA) 90 mcg/actuation inhaler Inhale 2 Puffs as instructed every 4 hours as needed for Wheezing/Shortness of Breath. 1 Inhaler 05/26/2020 Active amitriptyline hydrochloride 25 mg oral tablet (2 sources) Tricyclic Antidepressant take 1 tablet by mouth once daily at bedtime amitriptyline (Elavil) 25 MG tablet Take 25 mg by mouth daily at bedtime. Active amLODIPine 2.5 mg oral tablet (20 sources) Dihydropyridine Calcium Channel Elli Start: 05-13-2025 Start: 11-24-2024 End: 05-13-2025 Start: 11-24-2024 End: 01-13-2025 take 1 tablet by mouth once daily Amlodipine (Norvasc) 5 mg tablet Discontinued 5 mg PO daily November 24, 2024 1:00am January 13, 2025 3:33pm azithromycin 250 mg oral tablet (1 source) Macrolide Antimicrobial Start: 08-15-2019 take 1 tablet by mouth once daily azithromycin (ZITHROMAX Z-RAMIRO) 250 mg tablet Take 1 tablet by mouth once daily. 1 Package 08/15/2019 Active baclofen 10 mg oral tablet (20 sources) gamma-Aminobutyric Acid-ergic Agonist Start: 06-09-2025 Start: 08-11-2021 End: 07-23-2025 Start: 08-11-2021 End: 03-04-2025 take 1 tablet [...] daily. Active capsaicin 1 mg/ml topical cream (12 sources) Start: 05-19-2025 carvedilol 3.125 mg oral tablet (20 sources) alpha-Adrenergic Elli, beta-Adrenergic Elli Start: 07-22-2025 Start: 01-13-2025 End: 06-07-2025 Start: 12-11-2024 End: 12-12-2024 cholecalciferol 0.125 mg ora l capsule (20 sources) Vitamin D Start: 02-27-2022 Start: 12-16-2013 take 1 tablet by celeste th once daily Cholecalciferol (Vitamin D3) 5,000 UNIT tablet Active 5000 U PO DAILY December 16, 2013 1:00am 12 hr dextromethorphan hydrobromide 60 mg / guaiFENesin 1200 mg extended release oral tablet (20 sources) Uncompetitive L-hhukvh-V-aspartate Receptor Antagonist, Sigma-1 Agonist Start: 11-16-2023 End: 02-19-2024 Start: 11-16-2023 End: 02-19-2024 take 60-1200 mg by mouth every twelve hours as needed Dextromethorphan-Guaifenesin (Mucinex Dm ) 60-1,200 mg tablet extended release 12 hr Active 1 {tbl} PO Q12H as needed for cough/congest February 19, 2024 12:00am Start: 11-16-2023 End: 02-19-2024 docusate sodium 100 mg oral capsule (18 sources) Start: 04-18-2025 esomeprazole 40 mg delayed release oral capsule (1 source) Proton Pump Inhibitor Start: 12-28-2015 take 1 capsule by mouth once daily esomeprazole (NEXIUM) 40 mg capsule Take 1 capsule by mouth once daily. 30 capsule 4 12/28/2015 Active famotidine 40 mg oral tablet (20 sources) Histamine-2 Receptor Antagonist Start: 08-21-2024 End: 11-24-2024 Start: 12-21-2023 End: 02-25-2024 furosemide 40 mg oral tablet (11 sources) Loop Diuretic Start: 06-09-2025 End: 08-05-2025 gabapentin 300 mg oral capsu le (20 sources) Anti-epileptic Agent Start: 06-09-2025 Start: 07-16-2018 End: 06-09-2025 Start: 02-02-2015 take 1 capsule by mo ut three times daily gabapentin (NEURONTIN) 400 mg [...] mg by mouth. As needed 02/28/2011 Active PARoxetine hydrochloride 10 mg oral tablet (9 sources) Serotonin Reuptake Inhibitor Start: 06-09-2025 polysaccharide iron complex 150 mg oral capsule (15 sources) Start: 04-22-2025 microencapsulated potassium chloride 20 meq extended release oral tablet (20 sources) Start: 06-09-2025 Start: 04-22-2025 End: 06-09-2025 QUEtiapine 25 mg oral tablet (9 sources) Atypical Antipsychotic Start: 06-09-2025 rosuvastatin calcium 20 mg o ral tablet (20 sources) HMG-CoA Reductase Inhibitor Start: 08-05-2025 Start: 02-14-2025 End: 08-05-2025 Start: 11-24-2024 End: 12-09-2024 telmisartan 20 mg oral tablet (1 source) Angiotensin 2 Receptor Elli Start: 08-05-2025 Vitamin D3 (1 source) Start: 11-07-2022 Vitamin D3 Dos e : 125 mcg = 1 cap(s), Oral, qDay, 0 Refill(s) Start Date: 11/07/22 Status: Ordered (20 sources) Start: 06-07-2025 Start: 12-24-2024 End: 04-18-2025 Start: 12-24-2024 Start: 08-21-2024 End: 11-24-2024 Start: 08-11-2021 End: 02-22-2022 Start: 02-09-2021 End: 07-27-2021 Start: 08-05-2019 End: 08-11-2021 Completed/Discontinued Medications Medication Drug Class(es) Dates Sig [...] 21, 2023 1:57pm Start: 12-07-2023 End: 12-21-2023 apixaban 5 mg oral tablet (20 sources) Factor Xa Inhibitor Start: 01-12-2025 End: 08-03-2025 Start: 01-12-2025 End: 03-09-2025 Start: 01-11-2024 End: 01-10-2025 Start: 11-21-2023 End: 12-21-2023 aspirin 81 mg delayed release oral tablet (18 sources) Platelet Aggregation Inhibitor, Nonsteroidal Anti-inflammatory Drug Start: 12-11-2024 End: 06-07-2025 Start: 12-11-2024 take 1 tablet by celeste th at breakfast Aspirin 81 mg Tablet,Delayed Release (Dr/Ec) Active 81 mg PO WITH BREAKFAST December 11, 2024 1:00am cephalexin 500 mg oral capsu le (20 [...] 01, 2023 10:09am February 19, 2024 11:09am doxepin hydrochloride 10 mg/ ml oral solution (16 sources) Tricyclic Antidepressant Start: 04-18-2025 End: 08-05-2025 Start: 04-18-2025 take 5-10 mg by mouth at bedti me Doxepin 10 mg/mL concentrate Active 5 - 10 mg PO AT BEDTIME April 18, 2025 12:00am doxycycline monohydrate 100 mg oral capsule (20 [...] August 11, 2021 10:18am ipratropium bromide 0.042 mg/actuat metered dose nasal spray (18 sources) Anticholinergic Start: 04-18-2025 Ipratropium Br omide 42 mcg (0.06 %) spray,non-aerosol Active 2 NMA INTRANASAL THREE TIMES A DAY as needed for allergy symptoms April 18, 2025 12:00am administer into each nostril Start: 12-24-2024 End: 05-06-2025 Ipratropium [place] 42 mcg ( 0.06 %) spray,non-aerosol (2 sources) Start: 12-24-2024 End: 04-18-2025 Ipratropium [place] 42 mcg (0.06 %) spray,non-aerosol Discontinued 2 [...] Angiotensin Converting Enzyme Inhibitor Start: 02-19-2024 End: 06-09-2025 Start: 11-02-2023 End: 12-21-2023 Start: 09-04-2023 End: [...] bedtime metoclopramide 5 mg oral tab let (18 sources) Dopamine-2 Receptor Antagonist Start: 06-19-2024 End: 11-28-2024 metoprolol tartrate 25 mg or al tablet (20 sources) beta-Adrenergic Elli Start: 11-21-2023 End: 02-19-2024 Start: 11-21-2023 End: 02-19-2024 Start: 10-26-2020 End: 10-05-2023 Start: 10-26-2020 End: 10-05-2023 Start: 06-14-2020 End: 10-26-2020 miSOPROStol 0.1 mg oral tabl et (12 sources) Prostaglandin E1 Analog Start: 05-19-2025 End: 06-09-2025 naloxegol 25 mg oral tablet (17 sources) Opioid Antagonist Start: 04-18-2025 End: 06-09-2025 oxyCODONE hydrochloride 10 m g oral tablet (20 sources) Opioid Agonist Start: 06-09-2025 Start: 05-19-2025 End: 06-03-2025 Start: 10-05-2023 End: 11-15-2023 Start: 11-07-2022 oxyCODONE 5 mg oral tablet ( IMMEDIATE release ) Dose : 5 mg = 1 tab(s), Oral, BID, 0 Refill(s) Start Date: 11/07/22 Status: Ordered Start: 08-11-2021 End: 07-05-2025 Start: 08-11-2021 End: 05-24-2023 take 1 tablet [...] 40 mg delayed r elease oral tablet (20 sources) Proton Pump Inhibitor Start: 04-22-2025 End: 08-05-2025 Start: 02-25-2024 End: 04-21-2024 Start: 02-25-2024 End: 04-21-2024 phenazopyridine hydrochlorid e 200 mg oral tablet (20 sources) Start: 03-31-2023 End: 10-05-2023 plecanatide 3 mg oral tablet (18 sources) Start: 06-19-2024 End: 11-28-2024 predniSONE 20 [...] MG tablet Discontinued 60 mg PO DAILY 15 August 03, 2020 12:00am August 07, 2020 12:00am August 08, 2020 12:03am Start: 08-03-2020 End: 08-08-2020 take 60 mg by mouth once daily Prednisone Discontinued 60 MG PO DAILY 15 August 02, 2020 11:00pm August 07, 2020 11:03pm [...] 21, 2021 8:36am October 21, 2021 9:37am Problems Active Problems Problem Classification Problem Date [...] Intermittent palpitations; Translations: [Palpitations] 08-11-2021 Episodic Chronic kidney disease (2 sources) Chronic renal insufficiency; Translations: [Chronic kidney disease, unspecified] 08-01-2025 Chronic Chronic obstructive pulmonary disease and bronchiectasis (20 sources) Pulmonary emphysema; Translations: [Emphysema, unspecified] Onset: 4 01-21-2025 Chronic Coagulation and hemorrhagic disorders (2 sources) Thrombocytopenic disorder; Translations: [Thrombocytopenia, unspecified] 08-01-2025 Chronic Conditions associated with dizziness or vertigo (20 sources) Dizziness; Translations: [Dizziness and giddiness] 11-26-2023 Episodic Congestive heart failure; nonhypertensive (20 sources) Congestive heart failure; Translations: [Heart failure, unspecified] Onset: 5 06-03-2025 Chronic Coronary atherosclerosis and other heart disease (20 sources) Non-obstructive atherosclerosis of coronary artery; Translations: [Atherosclerotic heart disease of [place] coronary artery without angina pectoris] Onset: Chronic Deficiency and other anemia (20 sources) Anemia; Translations: [Anemia, unspecified] 02-19-2024 Episodic Deficiency and other anemia (5 sources) Anemia, unspecified; Translations: [Anemia, unspecified] Onset: 5 02-19-2024 Episodic Deficiency and other anemia (20 sources) Chronic anemia; Translations: [Anemia, unspecified] 04-18-2025 Episodic Deficiency and other anemia (20 sources) Microcytic anemia; Translations: [Iron deficiency anemia, unspecified] 04-18-2025 Episodic Disorders of lipid metabolism (20 sources) Hyperlipidemia; Translations: [Hyperlipidemia, unspecified] Onset: 5 10-16-2018 Chronic E Codes: Fall (20 sources) Fall; Translations: [Unspecified fall, initial encounter] 01-18-2024 Episodic Esophageal disorders (1 source) Gastroesophageal reflux disease; Translations: [Gastro-esophageal reflux disease without esophagitis] Onset: Resolved: 6 01-20-2016 Chronic Essential hypertension (20 sources) Essential hypertension; Translations: [Essential (primary) hypertension] Onset: Chronic Fluid and electrolyte disorders (20 sources) Acute hyponatremia; Translations: [Hypo-osmolality and hyponatremia] 11-15-2023 Episodic Genitourinary symptoms and ill-defined conditions (20 sources) Dysuria; Translations: [Dysuria] 03-31-2023 Episodic Headache; including migraine (20 sources) Migraine; Translations: [Migraine, unspecified, not intractable, without status migrainosus] Onset: 5 09-11-2018 Chronic Headache; including migraine (3 sources) Acute headache; Translations: [Acute headache] 07-23-2025 Episodic Headache; including migraine (1 source) Headache; including migraine; Translations: [Headache, unspecified] Onset: 5 Heart valve disorders (20 sources) Mitral valve stenosis; Translations: [Rheumatic mitral stenosis] Onset: 5 12-19-2024 Chronic Hypertension with complications and secondary hypertension (20 sources) Hypertensive emergency; Translations: [Hypertensive emergency] Onset: 5 01-21-2025 Chronic Influenza (20 sources) Influenza due to Influenza A virus; Translations: [Influenza due to other identified influenza virus with other respiratory manifestations] 11-15-2023 Episodic Malaise and fatigue (20 sources) Asthenia; Translations: [Weakness] Onset: 5 12-02-2023 Episodic Multiple sclerosis (20 sources) Multiple sclerosis; Translations: [Multiple sclerosis] Onset: 5 02-17-2022 Chronic Nonmalignant breast conditions (1 source) Fibrocystic disease of breast; Translations: [Diffuse cystic mastopathy of unspecified breast] Onset: 9 09-28-2009 Chronic Nonspecific chest pain (20 sources) Atypical chest pain; Translations: [Other chest pain] Onset: 5 08-11-2021 Episodic Occlusion or stenosis of precerebral arteries [...] use of anticoagulant; Translations: [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 term care social worker (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) use of anticoagulants] 01-18-2024 Episodic Other and ill-defined cerebrovascular disease (20 sources) Intracranial aneurysm; Translations: [Cerebral aneurysm, nonruptured] 08-02-2019 Chronic Comment on above: s/p coiling February 05 Other and ill-defined cerebrovascular disease (2 sources) Cerebrovascular disease; Translations: [Cerebrovascular disease, unspecified] 10-05-2023 Chronic Other and ill-defined cerebrovascular disease (1 source) Cerebral aneurysm, nonruptured; Translations: [Cerebral aneurysm, nonruptured] Onset: Chronic Other circulatory disease (20 sources) Stenosis of left subclavian artery; 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] 01-11-2024 Chronic Other circulatory disease (20 sources) H/O: atrial fibrillation; Translations: [Personal history of other diseases of the circulatory system] 11-27-2023 Episodic Other circulatory disease (20 sources) Low blood pressure; Translations: [Hypotension, unspecified] 02-19-2024 Episodic Other circulatory disease (3 sources) Hypotension, unspecified; Translations: [Hypotension, unspecified] 02-19-2024 Episodic Other circulatory disease (20 sources) Orthostatic hypotension; Translations: [Orthostatic hypotension] 04-18-2025 Episodic Other connective tissue disease (20 sources) Pain in calf; Translations: [Pain in left lower leg] 12-02-2022 Episodic Other connective tissue disease (20 sources) Foot pain; Translations: [Pain in left foot] 03-16-2023 Episodic Other connective tissue disease (2 sources) Pain of left calf; Translations: [Pain in left lower leg] 12-02-2022 Episodic Other diseases of kidney and ureters (1 source) Acute renal insufficiency; Translations: [Disorder of kidney and ureter, unspecified] 08-06-2025 Episodic Other eye disorders (20 sources) Pain in eye; Translations: [Ocular pain, right eye] 02-25-2022 Episodic Other gastrointestinal disorders (20 sources) Occult blood in stools; Translations: [Other fecal abnormalities] 02-19-2024 Episodic Other gastrointestinal disorders (3 sources) Other fecal abnormalities; Translations: [Nonspecific abnormal findings in stool contents] 02-19-2024 Episodic Other gastrointestinal disorders (20 sources) Constipation; Translations: [Constipation, unspecified] 04-18-2025 Episodic Other hereditary and degenerative nervous system [...] of head, initial encounter] 01-11-2024 Episodic Other lower respiratory disease (20 sources) Dyspnea; Translations: [Dyspnea, unspecified] 08-11-2021 Episodic Other lower respiratory disease (20 sources) Dyspnea on exertion; Translations: [Other forms of dyspnea] 11-24-2022 Episodic Other lower respiratory disease (20 sources) Cough; Translations: [Cough] 11-26-2023 Episodic Other lower respiratory disease (20 sources) Hypoxemia; Translations: [Hypoxemia] 10-08-2024 Episodic Other [...] skin] 02-26-2022 Episodic Other nervous system disorders (20 sources) Facial paresthesia; Translations: [Paresthesia of skin] 11-27-2023 Episodic Other nervous system disorders (2 sources) Impairment of balance; Translations: [Other abnormalities of gait and mobility] 12-14-2023 Episodic Other nervous system disorders (2 sources) Impaired cognition 03-04-2025 Episodic Other non-traumatic joint disorders (20 sources) [...] leg] 10-22-2023 Episodic Other upper respiratory disease (18 sources) Acute bronchospasm; Translations: [Acute bronchospasm] 12-25-2024 Episodic Peripheral and visceral atherosclerosis (20 sources) Peripheral vascular disease, unspecified; Translations: [Peripheral vascular disease] Onset: Chronic Pneumonia (except that caused by tuberculosis or sexually transmitted disease) (20 sources) Community acquired pneumonia; Translations: [Pneumonia, unspecified [...] [Anemia, unspecified] 02-19-2024 Episodic Residual codes; unclassified (20 sources) Genetic disorder carrier; Translations: [Genetic carrier of other disease] 12-24-2024 Episodic Residual codes; unclassified (1 source) Localized edema; Translations: [Localized edema] Onset: Episodic Spondylosis; intervertebral disc disorders; other back [...] on above: LDCT due 10/13 Substance-related disorders (16 sources) Continuous opioid dependence; Translations: [Opioid use, unspecified, uncomplicated] 04-18-2025 Episodic Superficial injury; contusion (20 sources) Abrasion of cornea of right eye; Translations: [Injury of conjunctiva and corneal abrasion without foreign body, right eye, initial encounter] 02-25-2022 Episodic Thyroid disorders (12 sources) Non-toxic uninodular goiter; Translations: [Nontoxic single thyroid nodule] Onset: 5 05-29-2024 Chronic Unclassified (1 source) Unknown / UNK(Unknown) Onset: Urinary tract infections (20 sources) Cystitis; Translations: [Cystitis, unspecified without hematuria] 03-31-2023 Episodic Viral infection (13 sources) Herpes zoster; Translations: [Zoster without complications] Onset: 5 05-19-2025 Episodic Past or Other Problems Problem Classification Problem Date Documented Da te Episodic/Chronic Biliary tract disease (2 sources) Gallstone; Translations: [Calculus of gallbladder without cholecystitis without obstruction] Onset: 12-05-2010 12-05-2010 Episodic Heart valve disorders (20 sources) Heart murmur; Translations: [Cardiac murmur, unspecified] Onset: 01-19-2025 Episodic Nausea and vomiting (19 sources) Nausea and vomiting; Translations: [Nausea with vomiting, unspecified] Onset: 04-09-2025 04-02-2025 Episodic Nutritional deficiencies (3 sources) Deficiency of multiple nutrient elements; Translations: [Deficiency of multiple nutrient elements] Onset: 03-04-2025 03-04-2025 Episodic Other aftercare (1 source) Encounter for [...] [Other symptoms involving cardiovascular system] Episodic Other gastrointestinal disorders (1 source) Constipation, unspecified; Translations: [Constipation, unspecified] Onset: 04-23-2025 Episodic Other injuries and conditions due to external causes (1 source) Encounter for examination and observation following other accident; Translations: [Encounter for examination and observation following other accident] Onset: 04-15-2025 Episodic Other lower respiratory disease (4 sources) Other forms of dyspnea; Translations: [Other respiratory abnormalities] Onset: 01-19-2025 Episodic Other nervous system disorders (3 sources) Dysphasia; Translations: [Dysphasia] Onset: 04-08-2025 04-08-2025 Episodic Other nervous system disorders (1 source) Dysphasia; Translations: [Dysphasia] Onset: 04-08-2025 Episodic Other screening for suspected conditions (not mental disorders or infectious disease) (20 sources) Raised cardiac enzyme or marker; Translations: [Other specified abnormal findings of blood chemistry] Onset: 09-14-2009 11-18-2023 Episodic Spondylosis; intervertebral disc disorders; other back problems (20 sources) Sciatica; Translations: [Sciatica, left side] Onset: 01-28-2025 02-22-2022 Episodic Results Test Name Value Interpretation Reference Range Facility Anion gap in Serum or Plasma Ordered By: Yasmani Haynes on 08-06-2025 Anion gap [Moles/Vol] 13 mmol/L 04-02 [facility] BUN/creatinine ratioOrdered By: Yasmani Haynes on 08-06-2025 Urea nitrogen/Creatinine [Mass ratio] 29.9 mg/mg High 09-07 [facility] Basic Metabolic Profile (BMP )on 08-06-2025 BUN/CRE 29.9 RATIO High 09-07 [facility] Comment on above: Performed By: #### L 500.2500 ####[facility] [address] [place], [place], [id number] Calcium [Mass/Vol] 9.1 mg/dL Normal 7.6-11.[address] [facility] Comment on above: Performed By: #### L 500.2500 ####[facility] [address] [place], [place], [id number] Chloride [Moles/Vol] 100 mmol/L Normal 98-108 [facility] Comment on above: Performed By: #### L 500.2500 ####[facility] [address] [place], [address] CO2 [Moles/Vol] 25.3 mmol/L Normal 21.0-32.0 [facility] Comment on above: Performed By: #### L 500.2500 ####[facility] [address] [place], [address] Creatinine [Mass/Vol] 1.85 mg/dL High 0.70-1.20 [facility] Comment on above: Performed By: #### L 500.2500 ####[facility] [address] [place], [address] ECRCL 22.99 ml/min Low 50-250 [facility] Comment on above: Performed By: #### L 500.2500 ####[facility] [address] [place], [address] GAP 13 Normal 5-15 [facility] Comment on above: Performed By: #### L 500.2500 ####[facility] [address] [place], [address] GFR/1.73 sq M.predicted among non-blacks MDRD (S/P/Bld) [Vol rate/Area] 29 mL/min/{1.73_m2} Low >60 [facility] Comment on above: Result Comment: mL/m in/1.73m2 CKD-EPI Creatinine Equation (2020) Performed By: #### L 500.2500 ####[facility] [address] [place], [address] Glucose [Mass/Vol] 103 mg/dL High 70-[address] [facility] Comment on above: Performed By: #### L 500.2500 ####[facility] [address] [place], [address] Potassium [Moles/Vol] 4.0 mmol/L Normal 3.3-5.1 [facility] Comment on above: Performed By: #### L 500.2500 ####[facility] [address] [place], [address] Sodium [Moles/Vol] 138 mmol/L Normal 133-[address] [facility] Comment on above: Performed By: #### L 500.2500 ####[facility] [address] [place], [address] Urea nitrogen [Mass/Vol] 55 mg/dL High 4-19 [facility] Comment on above: Performed By: #### L 500.2500 ####[facility] [address] [place], [address] Carbon dioxide, total [Moles /volume] in Central venous bloodOrdered By: Yasmani Haynes on 08-06-2025 CO2 [Moles/Vol] 25.3 mmol/L 21.0-32.0 [facility] Chloride assayOrdered By: Kari Haynes on 08-06-2025 Chloride [Moles/Vol] 100 mmol/L 98-108 [facility] Glomerular filtration rate ( GFR) estimation/1.73 sq m using serum, plasma, or whole bOrdered By: Yasmani Haynes on 08-06-2025 GFR/1.73 sq M.predicted among non-blacks MDRD (S/P/Bld) [Vol rate/Area] 29 mL/min/{1.73_m2} Low >60 [facility] Potassium measurement (mass/ volume)Ordered By: Yasmani Haynes on 08-06-2025 Potassium (Unsp spec) [Mass/Vol] 4.0 mmol/L 3.3-5.1 [facility] Serum creatinine measurement (mass/volume)Ordered By: Yasmani Haynes on 08-06-2025 Creatinine [Mass/Vol] 1.85 mg/dL High 0.70-1.20 [facility] Serum glucose measurement (m ass/volume)Ordered By: Yasmani Haynes on 08-06-2025 Glucose [Mass/Vol] 103 mg/dL High 70-[address] [facility] Serum or plasma calcium stefania urement (mass/volume)Ordered By: Yasmani Haynes on 08-06-2025 Calcium [Mass/Vol] 9.1 mg/dL 7.6-11.[address] [facility] Serum or plasma urea nitroge n measurement (mass/volume)Ordered By: Yasmani Haynes on 08-06-2025 Urea nitrogen [Mass/Vol] 55 mg/dL High 4-19 [facility] Sodium levelOrdered By: Joce Haynes on 08-06-2025 Sodium [Moles/Vol] 138 mmol/L 133-[address] [facility] Troponin T HS 4 HRon 025 Trop T High Sen 32 ng/L High <=14 [facility] Comment on above: Performed By: #### L 499.0043 ####[facility] [address] [place], [place], [id number] Troponin T.cardiac [Mass/vol ume] in Serum or Plasma by High sensitivity methodOrdered By: Jeffy Willoughby on 08-06-2025 Troponin T.cardiac High sensitivity method [Mass/Vol] 32 ng/L High <14 [facility] 12 Lead EKGon 08-05-2025 12 Lead EKG Normal [facility] Absolute lymphocyte countOrd ered By: Jeffy Willoughby on 08-05-2025 Lymphocytes Auto (Unsp spec) [#/Vol] 1.15 10*3/uL 0.83-4.51 [facility] Automated lymphocyte count a s percentage of total leukocytesOrdered By: Jeffy Willoughby on 08-05-2025 Lymphocytes/100 WBC Auto (Unsp spec) 18.2 % Low 19-41 [facility] Basic Metabolic Profile (BMP )on 08-05-2025 BUN/CRE 29.2 RATIO High 10-20 [facility] Comment on above: Performed By: #### L 500.2500, L100.0100 ####[facility] [address] [place], [place], [id number] Calcium [Mass/Vol] 9.5 mg/dL Normal 7.6-11.[address] [facility] Comment on above: Performed By: #### L 500.2500, L100.0100 ####[facility] [address], [address] Chloride [Moles/Vol] 96 mmol/L Low 98-108 [facility] Comment on above: Performed By: #### L 500.2500, L100.0100 ####[facility] [address] [place], [address] CO2 [Moles/Vol] 31.1 mmol/L Normal 21.0-32.0 [facility] Comment on above: Performed By: #### L 500.2500, L100.0100 ####[facility] [address] [place], [address] Creatinine [Mass/Vol] 2.10 mg/dL High 0.70-1.20 [facility] Comment on above: Performed By: #### L 500.2500, L100.0100 ####[facility] [address] [place], [address] ECRCL 20.25 ml/min Low 50-250 [facility] Comment on above: Performed By: #### L 500.2500, L100.0100 ####[facility] [address] [place], [address] GAP 12 Normal 5-15 [facility] Comment on above: Performed By: #### L 500.2500, L100.0100 ####[facility] [address] [place], [address] GFR/1.73 sq M.predicted among non-blacks MDRD (S/P/Bld) [Vol rate/Area] 25 mL/min/{1.73_m2} Low >60 [facility] Comment on above: Result Comment: mL/m in/1.73m2 CKD-EPI Creatinine Equation (2020) Performed By: #### L 500.2500, L100.0100 ####[facility] [address] [place], [address] Glucose [Mass/Vol] 119 mg/dL High 70-[address] [facility] Comment on above: Performed By: #### L 500.2500, L100.0100 ####[facility] [address] [place], [address] Potassium [Moles/Vol] 4.9 mmol/L Normal 3.3-5.1 [facility] Comment on above: Performed By: #### L 500.2500, L100.0100 ####[facility] [address] [place], [address] Sodium [Moles/Vol] 139 mmol/L Normal 133-[address] [facility] Comment on above: Performed By: #### L 500.2500, L100.0100 ####[facility] [address] [place], [address] Urea nitrogen [Mass/Vol] 61 mg/dL High 4-19 [facility] Comment on above: Performed By: #### L 500.2500, L100.0100 ####[facility] [address] [place], [address] Basophil percentageOrdered B y: Jeffy Willoughby on 08-05-2025 Basophils/100 WBC (Bld) 0.9 % 0-1 [facility] CBC W/Diff, Automatedon 07-20 Absolute Lymph 1.15 X10 3/uL Normal 0.83-4.51 [facility] Comment on above: Performed By: #### L 500.2500, L100.0100 ####[facility] [address] [place], [address] Absolute Neut 4.0 X10 3/uL Normal 2.0-7.7 [facility] Comment on above: Performed By: #### L 500.2500, L100.0100 ####[facility] [address] [place], [address] Basophils/100 WBC (Bld) 0.9 % Normal 0-1 [facility] Comment on above: Performed By: #### L 500.2500, L100.0100 ####[facility] [address] [place], [address] Eosinophils/100 WBC (Bld) 7.3 % High 0-5 [facility] Comment on above: Performed By: #### L 500.2500, L100.0100 ####[facility] [address] [place], [address] Erythrocyte distribution width (RBC) [Ratio] 18.3 % High 11.6-14.6 [facility] Comment on above: Performed By: #### L 500.2500, L100.0100 ####[facility] [address] [place], [address] Hematocrit (Bld) [Volume fraction] 33.0 % Low 37-47 [facility] Comment on above: Performed By: #### L 500.2500, L100.0100 ####[facility] [address] [place], [address] Hemoglobin (Bld) [Mass/Vol] 10.4 g/dL Low 12.0-15.0 [facility] Comment on above: Performed By: #### L 500.2500, L100.0100 ####[facility] [address] [place], [address] IG% 0.300 Normal 0.0-0.9 [facility] Comment on above: Result Comment: IG% - Immature Granulocytes (promyelocytes, myelocytes andmetamyelocytes) > 1% indicates that a LEFT SHIFT is Present. Performed By: #### L 500.2500, L100.0100 ####[facility] [address] [place], [address] Lymphocytes/100 WBC (Bld) 18.2 % Low 19-41 [facility] Comment on above: Performed By: #### L 500.2500, L100.0100 ####[facility] [address] [place], [address] MCH (RBC) [Entitic mass] 27.7 pg Normal 27.0-32.0 [facility] Comment on above: Performed By: #### L 500.2500, L100.0100 ####[facility] [address] [place], [address] MCHC (RBC) [Mass/Vol] 31.5 g/dL Low 32-36 [facility] Comment on above: Performed By: #### L 500.2500, L100.0100 ####[facility] [address] [place], [address] MCV (RBC) [Entitic vol] 87.8 fL Normal 81-99 [facility] Comment on above: Performed By: #### L 500.2500, L100.0100 ####[facility] [address] [place], [address] Monocytes/100 WBC (Bld) 9.5 % Normal 0-10 [facility] Comment on above: Performed By: #### L 500.2500, L100.0100 ####[facility] [address] [place], [address] Neutrophils/100 WBC (Bld) 63.8 % Normal 47-70 [facility] Comment on above: Performed By: #### L 500.2500, L100.0100 ####[facility] [address] [place], [address] Nucleated RBC (Bld) [#/Vol] 0 10*3/uL Normal 0-5 [facility] Comment on above: Performed By: #### L 500.2500, L100.0100 ####[facility] [address] [place], [address] Platelet mean volume (Bld) [Entitic vol] 10.2 fL Normal 6.2-12.0 [facility] Comment on above: Performed By: #### L 500.2500, L100.0100 ####[facility] [address] [place], [address] Platelets (Bld) [#/Vol] 108 10*3/uL Low 150-450 [facility] Comment on above: Performed By: #### L 500.2500, L100.0100 ####[facility] [address] [place], [address] RBC (Bld) [#/Vol] 3.76 10*6/uL Low 4.2-5.4 [facility] Comment on above: Performed By: #### L 500.2500, L100.0100 ####[facility] [address] [place], [address] RDW SD 58.3 fl High 35.1-43.9 [facility] Comment on above: Performed By: #### L 500.2500, L100.0100 ####[facility] [address] [place], [address] WBC (Bld) [#/Vol] 6.3 10*3/uL Normal 4.4-11.[address] [facility] Comment on above: Performed By: #### L 500.2500, L100.0100 ####[facility] [address] [place], [address] Cardiology Visit Reporton Cardiology Visit Report Normal [facility] Emergency Department Summary on 08-05-2025 Emergency Department Summary Normal [facility] Eosinophil percentageOrdered By: Jeffy Willoughby on 08-05-2025 Eosinophils/100 WBC (Bld) 7.3 % High 0-5 [facility] Erythrocyte distribution wid th ratioOrdered By: Jeffy Willoughby on 08-05-2025 Erythrocyte distribution width (RBC) [Ratio] 18.3 % High 11.6-14.6 [facility] Erythrocyte distribution wid th standard deviationOrdered By: Jeffyaura Blocko on 08-05-2025 Erythrocyte distribution width (RBC) [Ratio] 58.3 fl High 35.1-43.9 [facility] Hematocrit Auto (Bld) [Volum e fraction]Ordered By: Jeffyaura Blocko on 08-05-2025 Hematocrit (Bld) [Volume fraction] 33.0 % Low 37-47 [facility] Hemoglobin measurementOrdere d By: Jeffyaura Blocko on 08-05-2025 Hemoglobin (Bld) [Mass/Vol] 10.4 g/dL Low 12.0-15.0 [facility] [facility] Immature granulocytes/100 WB C Auto (Bld)Ordered By: Jeffyaura Willoughby on 08-05-2025 Immature granulocytes/100 WBC (Bld) 0.300 % 0.0-0.9 [facility] L501.4021on 08-05-2025 Trop T High Sen 34 ng/L High <=14 [facility] Comment on above: Performed By: #### L 501.4021 ####[facility] [address] [place], [place], [id number] MCV (mean corpuscular volume ) determinationOrdered By: Jeffyaura Willoughby on 08-05-2025 MCV (RBC) [Entitic vol] 87.8 fL 81-99 [facility] Mean corpuscular hemoglobin (MCH) determinationOrdered By: Jeffyaura Willoughby on 08-05-2025 MCH (RBC) [Entitic mass] 27.7 pg 27.0-32.0 [facility] Monocyte percentageOrdered B y: Jeffyaura Willoughby on 08-05-2025 Monocytes/100 WBC (Bld) 9.5 % 0-10 [facility] Neutrophil percentageOrdered By: Jeffyaura Willoughby on 08-05-2025 Neutrophils/100 WBC (Bld) 63.8 % 47-70 [facility] Platelet countOrdered By: [facility] Willoughby on 08-05-2025 Platelets (Bld) [#/Vol] 108 10*3/uL Low 150-450 [facility] RBC Auto (Bld) [#/Vol]Ordere d By: Jeffy Willoughby on 08-05-2025 RBC (Bld) [#/Vol] 3.76 10*6/uL Low 4.2-5.4 [facility] Troponin T HS 2 HRon 025 Trop T High Sen 33 ng/L High <=14 [facility] Comment on above: Performed By: #### L 499.0042 ####[facility] [address] [place], [place], [phone] Troponin T.cardiac [Mass/vol ume] in Serum or Plasma by High sensitivity methodOrdered By: Jeffy Willoughby on 08-05-2025 Troponin T.cardiac High sensitivity method [Mass/Vol] 33 ng/L High <14 [facility] Troponin T.cardiac High sensitivity method [Mass/Vol] 34 ng/L High <14 [facility] White blood cell (WBC) count Ordered By: Jeffy Willoughby on 08-05-2025 WBC (Bld) [#/Vol] 6.3 10*3/uL 4.4-11.[address] [facility] Troponin T HS 2 HRon 025 Trop T High Sen 27 ng/L High <=14 [facility] Comment on above: Performed By: #### L 499.0042 ####[facility] [address] [place], [place], [id number] Troponin T HS 4 HRon 025 Trop T High Sen Normal <=14 [facility] Comment on above: Result Comment: Canc elled via OM: Order cancelled - Patient discharged Performed By: #### L 499.0043 ####[facility] [address] [place], [place], [id number] 12 Lead EKGon 07-31-2025 12 Lead EKG Normal [facility] Absolute lymphocyte countOrd ered By: Jeffy Willoughby on 07-31-2025 Lymphocytes Auto (Unsp spec) [#/Vol] 0.97 10*3/uL 0.83-4.51 [facility] Anion gap in Serum or Plasma Ordered By: Jeffyaura Willoughby on 07-31-2025 Anion gap [Moles/Vol] 14 mmol/L 5-15 [facility] Automated lymphocyte count a s percentage of total leukocytesOrdered By: Jeffy Willoughby on 07-31-2025 Lymphocytes/100 WBC Auto (Unsp spec) 13.9 % Low 19-41 [facility] BUN/creatinine ratioOrdered By: Jeffy Willoughby on 07-31-2025 Urea nitrogen/Creatinine [Mass ratio] 25.8 mg/mg High 10-20 [facility] Basic Metabolic Profile (BMP )on 07-31-2025 BUN/CRE 25.8 RATIO High 10- [facility] Comment on above: Performed By: #### L 500.2500, L100.0100, L501.4021 ####[facility] [address] [place], [address] Calcium [Mass/Vol] 9.5 mg/dL Normal 7.6-11.[address] [facility] Comment on above: Performed By: #### L 500.2500, L100.0100, L501.4021 ####[facility] [address] [place], [address] Chloride [Moles/Vol] 95 mmol/L Low 98-108 [facility] Comment on above: Performed By: #### L 500.2500, L100.0100, L501.4021 ####[facility] [address] [place], [address] CO2 [Moles/Vol] 28.3 mmol/L Normal 21.0-32.0 [facility] Comment on above: Performed By: #### L 500.2500, L100.0100, L501.4021 ####[facility] [address] [place], [address] Creatinine [Mass/Vol] 1.25 mg/dL High 0.70-1.20 [facility] Comment on above: Performed By: #### L 500.2500, L100.0100, L501.4021 ####[facility] [address] [place], [address] ECRCL 32.34 ml/min Low 50-250 [facility] Comment on above: Performed By: #### L 500.2500, L100.0100, L501.4021 ####[facility] [address] [place], [address] GAP 14 Normal 5-15 [facility] Comment on above: Performed By: #### L 500.2500, L100.0100, L501.4021 ####[facility] [address] [place], [address] GFR/1.73 sq M.predicted among non-blacks MDRD (S/P/Bld) [Vol rate/Area] 46 mL/min/{1.73_m2} Low >60 [facility] Comment on above: Result Comment: mL/m in/1.73m2 CKD-EPI Creatinine Equation (2020) Performed By: #### L 500.2500, L100.0100, L501.4021 ####[facility] [address] [place], [address] Glucose [Mass/Vol] 132 mg/dL High 70-[address] [facility] Comment on above: Performed By: #### L 500.2500, L100.0100, L501.4021 ####[facility] [address] [place], [address] Potassium [Moles/Vol] 3.7 mmol/L Normal 3.3-5.1 [facility] Comment on above: Performed By: #### L 500.2500, L100.0100, L501.4021 ####[facility] [address] [place], [address] Sodium [Moles/Vol] 137 mmol/L Normal 133-[address] [facility] Comment on above: Performed By: #### L 500.2500, L100.0100, L501.4021 ####[facility] [address] [place], [address] Urea nitrogen [Mass/Vol] 32 mg/dL High 4-19 [facility] Comment on above: Performed By: #### L 500.2500, L100.0100, L501.4021 ####[facility] [address] [place], [address] Basophil percentageOrdered B y: Jeffy Willoughby on 07-31-2025 Basophils/100 WBC (Bld) 0.9 % 0-1 [facility] CBC W/Diff, Automatedon 07-20-2024 Absolute Lymph 0.97 X10 3/uL Normal 0.83-4.51 [facility] Comment on above: Performed By: #### L 500.2500, L100.0100, L501.4021 ####[facility] [address] [place], [address] Absolute Neut 4.9 X10 3/uL Normal 2.0-7.7 [facility] Comment on above: Performed By: #### L 500.2500, L100.0100, L501.4021 ####[facility] [address] [place], [address] Basophils/100 WBC (Bld) 0.9 % Normal 0-1 [facility] Comment on above: Performed By: #### L 500.2500, L100.0100, L501.4021 ####[facility] [address] [place], [address] Eosinophils/100 WBC (Bld) 6.6 % High 0-5 [facility] Comment on above: Performed By: #### L 500.2500, L100.0100, L501.4021 ####[facility] [address] [place], [address] Erythrocyte distribution width (RBC) [Ratio] 18.2 % High 11.6-14.6 [facility] Comment on above: Performed By: #### L 500.2500, L100.0100, L501.4021 ####[facility] [address] [place], [address] Hematocrit (Bld) [Volume fraction] 36.4 % Low 37-47 [facility] Comment on above: Performed By: #### L 500.2500, L100.0100, L501.4021 ####[facility] [address] [place], [address] Hemoglobin (Bld) [Mass/Vol] 11.7 g/dL Low 12.0-15.0 [facility] Comment on above: Performed By: #### L 500.2500, L100.0100, L501.4021 ####[facility] [address] [place], [address] IG% 0.300 Normal 0.0-0.9 [facility] Comment on above: Result Comment: IG% - Immature Granulocytes (promyelocytes, myelocytes andmetamyelocytes) > 1% indicates that a LEFT SHIFT is Present. Performed By: #### L 500.2500, L100.0100, L501.4021 ####[facility] [address] [place], [address] Lymphocytes/100 WBC (Bld) 13.9 % Low 19-41 [facility] Comment on above: Performed By: #### L 500.2500, L100.0100, L501.4021 ####[facility] [address] [place], [address] MCH (RBC) [Entitic mass] 27.6 pg Normal 27.0-32.0 [facility] Comment on above: Performed By: #### L 500.2500, L100.0100, L501.4021 ####[facility] [address] [place], [address] MCHC (RBC) [Mass/Vol] 32.1 g/dL Normal 32-36 [facility] Comment on above: Performed By: #### L 500.2500, L100.0100, L501.4021 ####[facility] [address] [place], [address] MCV (RBC) [Entitic vol] 85.8 fL Normal 81-99 [facility] Comment on above: Performed By: #### L 500.2500, L100.0100, L501.4021 ####[facility] [address] [place], [address] Monocytes/100 WBC (Bld) 8.6 % Normal 0-10 [facility] Comment on above: Performed By: #### L 500.2500, L100.0100, L501.4021 ####[facility] [address] [place], [address] Neutrophils/100 WBC (Bld) 69.7 % Normal 47-70 [facility] Comment on above: Performed By: #### L 500.2500, L100.0100, L501.4021 ####[facility] [address] [place], [address] Nucleated RBC (Bld) [#/Vol] 0 10*3/uL Normal 0-5 [facility] Comment on above: Performed By: #### L 500.2500, L100.0100, L501.4021 ####[facility] [address] [place], [address] Platelet mean volume (Bld) [Entitic vol] 10.5 fL Normal 6.2-12.0 [facility] Comment on above: Performed By: #### L 500.2500, L100.0100, L501.4021 ####[facility] [address] [place], [address] Platelets (Bld) [#/Vol] 131 10*3/uL Low 150-450 [facility] Comment on above: Performed By: #### L 500.2500, L100.0100, L501.4021 ####[facility] [address] [place], [address] RBC (Bld) [#/Vol] 4.24 10*6/uL Normal 4.2-5.4 [facility] Comment on above: Performed By: #### L 500.2500, L100.0100, L501.4021 ####[facility] [address] [place], [address] RDW SD 57.0 fl High 35.1-43.9 [facility] Comment on above: Performed By: #### L 500.2500, L100.0100, L501.4021 ####[facility] [address] [place], [address] WBC (Bld) [#/Vol] 7.0 10*3/uL Normal 4.4-11.[address] [facility] Comment on above: Performed By: #### L 500.2500, L100.0100, L501.4021 ####[facility] [address] [place], [address] Carbon dioxide, total [Moles /volume] in Central venous bloodOrdered By: Jeffy Willoughby on 07-31-2025 CO2 [Moles/Vol] 28.3 mmol/L 21.0-32.0 [facility] Chest 1 View (Portable)on Chest 1 View (Portable) Normal [facility] Chloride assayOrdered By: Barrett Willoughby on 07-31-2025 Chloride [Moles/Vol] 95 mmol/L Low 98-108 [facility] Emergency Department Summary on 07-31-2025 Emergency Department Summary Normal [facility] Eosinophil percentageOrdered By: Jeffy Willoughby on 07-31-2025 Eosinophils/100 WBC (Bld) 6.6 % High 0-5 [facility] Erythrocyte distribution wid th ratioOrdered By: [facility] on 07-31-2025 Erythrocyte distribution width (RBC) [Ratio] 18.2 % High 11.6-14.6 [facility] Erythrocyte distribution wid th standard deviationOrdered By: Jeffy Willoughby on 07-31-2025 Erythrocyte distribution width (RBC) [Ratio] 57.0 fl High 35.1-43.9 [facility] Glomerular filtration rate ( GFR) estimation/1.73 sq m using serum, plasma, or whole bOrdered By: Jeffyaura Willoughby on 07-31-2025 GFR/1.73 sq M.predicted among non-blacks MDRD (S/P/Bld) [Vol rate/Area] 46 mL/min/{1.73_m2} Low >60 [facility] Hematocrit Auto (Bld) [Volum e fraction]Ordered By: [facility] on 07-31-2025 Hematocrit (Bld) [Volume fraction] 36.4 % Low 37-47 [facility] Hemoglobin measurementOrdere d By: [facility] on 07-31-2025 Hemoglobin (Bld) [Mass/Vol] 11.7 g/dL Low 12.0-15.0 [facility] Immature granulocytes/100 WB C Auto (Bld)Ordered By: [facility] on 07-31-2025 Immature granulocytes/100 WBC (Bld) 0.300 % 0.0-0.9 [facility] L501.4021on 07-31-2025 Trop T High Sen 29 ng/L High <=14 [facility] Comment on above: Performed By: #### L 500.2500, L100.0100, L501.4021 ####[facility] [address] [place], [address] MCV (mean corpuscular volume ) determinationOrdered By: Jeffy Willoughby on 07-31-2025 MCV (RBC) [Entitic vol] 85.8 fL 81-99 [facility] Mean corpuscular hemoglobin (MCH) determinationOrdered By: [facility] on 07-31-2025 MCH (RBC) [Entitic mass] 27.6 pg 27.0-32.0 [facility] Monocyte percentageOrdered B y: Jeffy Blocko on 07-31-2025 Monocytes/100 WBC (Bld) 8.6 % 0-10 [facility] Neutrophil percentageOrdered By: Jeffy Blocko on 07-31-2025 Neutrophils/100 WBC (Bld) 69.7 % 47-70 [facility] Platelet countOrdered By: Barrett Blocko on 07-31-2025 Platelets (Bld) [#/Vol] 131 10*3/uL Low 150-450 [facility] Potassium measurement (mass/ volume)Ordered By: Jeffy Willoughby on 07-31-2025 Potassium (Unsp spec) [Mass/Vol] 3.7 mmol/L 3.3-5.1 [facility] RBC Auto (Bld) [#/Vol]Ordere d By: Jeffy Blocko on 07-31-2025 RBC (Bld) [#/Vol] 4.24 10*6/uL 4.2-5.4 [facility] Serum creatinine measurement (mass/volume)Ordered By: Jeffy Willoughby on 07-31-2025 Creatinine [Mass/Vol] 1.25 mg/dL High 0.70-1.20 [facility] Serum glucose measurement (m ass/volume)Ordered By: Jeffy Willoughby on 07-31-2025 Glucose [Mass/Vol] 132 mg/dL High 70-[address] [facility] Serum or plasma calcium stefania urement (mass/volume)Ordered By: Jeffy Willoughby on 07-31-2025 Calcium [Mass/Vol] 9.5 mg/dL 7.6-11.[address] [facility] Serum or plasma urea nitroge n measurement (mass/volume)Ordered By: Jeffy Willoughby on 07-31-2025 Urea nitrogen [Mass/Vol] 32 mg/dL High 4-19 [facility] Sodium levelOrdered By: Jeffy Willoughby on 07-31-2025 Sodium [Moles/Vol] 137 mmol/L 133-[address] [facility] Troponin T.cardiac [Mass/vol ume] in Serum or Plasma by High sensitivity methodOrdered By: Jeffy Willoughby on 07-31-2025 Troponin T.cardiac High sensitivity method [Mass/Vol] 27 ng/L High <14 [facility] Troponin T.cardiac High sensitivity method [Mass/Vol] 29 ng/L High <14 [facility] White blood cell (WBC) count Ordered By: Jeffy Willoughby on 07-31-2025 WBC (Bld) [#/Vol] 7.0 10*3/uL 4.4-11.[address] [facility] Basic Metabolic Profile (BMP )on 07-23-2025 BUN/CRE 25.8 RATIO High 10-20 [facility] Comment on above: Performed By: #### L 100.0100, L500.2500 ####[facility] [address] [place], [address] Calcium [Mass/Vol] 9.4 mg/dL Normal 7.6-11.[address] [facility] Comment on above: Performed By: #### L 100.0100, L500.2500 ####[facility] [address] [place], [address] Chloride [Moles/Vol] 94 mmol/L Low 98-108 [facility] Comment on above: Performed By: #### L 100.0100, L500.2500 ####[facility] [address] [place], [address] CO2 [Moles/Vol] 34.0 mmol/L High 21.0-32.0 [facility] Comment on above: Performed By: #### L 100.0100, L500.2500 ####[facility] [address] [place], [address] Creatinine [Mass/Vol] 1.14 mg/dL Normal 0.70-1.20 [facility] Comment on above: Performed By: #### L 100.0100, L500.2500 ####[facility] [address] [place], [address] ECRCL 35.46 ml/min Low 50-250 [facility] Comment on above: Performed By: #### L 100.0100, L500.2500 ####[facility] [address], [address] GAP 10 Normal 5-15 [facility] Comment on above: Performed By: #### L 100.0100, L500.2500 ####[facility] [address] [place], [address] GFR/1.73 sq M.predicted among non-blacks MDRD (S/P/Bld) [Vol rate/Area] 51 mL/min/{1.73_m2} Low >60 [facility] Comment on above: Result Comment: mL/m in/1.73m2 CKD-EPI Creatinine Equation (2020) Performed By: #### L 100.0100, L500.2500 ####[facility] [address] [place], [address] Glucose [Mass/Vol] 125 mg/dL High 70-[address] [facility] Comment on above: Performed By: #### L 100.0100, L500.2500 ####[facility] [address] [place], [address] Potassium [Moles/Vol] 4.0 mmol/L Normal 3.3-5.1 [facility] Comment on above: Performed By: #### L 100.0100, L500.2500 ####[facility] [address], [address] Sodium [Moles/Vol] 139 mmol/L Normal 133-[address] [facility] Comment on above: Performed By: #### L 100.0100, L500.2500 ####[facility] [address] [place], [address] Urea nitrogen [Mass/Vol] 29 mg/dL High 4-19 [facility] Comment on above: Performed By: #### L 100.0100, L500.2500 ####[facility] [address], [address] Office Visiton 07-23-2025 Follow-up visit [id number] Estephania Yo Mayda 1955 F Date Provider Department Center 07/23/2025 [id number] LY[facility] None Family History Family Status - Relation Status Age at Mother Notes: brain tumor Father Notes: [place] of arteries Level of Service:86656 MD OFFICE/OUTPATIENT ESTABLISHED LOW MDM 20 MIN Reason for Visit and Comments: Follow-up [995305] Multiple Sclerosis [162] Results [95] Dizziness [668151] - Normal [facility] Progress Noteon 07-23-2025 Progress Note Visit type: Establis hed Patient Reason for Visit: Follow-up, Multiple Sclerosis, Results, and Dizziness (/) Assessment and Plan 1. Multiple sclerosis (HCC) - baclofen (Lioresal) 20 MG tablet; Take 1 tablet (20 mg) by mouth 3 times daily., Starting Estrella 07/23/2025, Normal Subjective HPI: REVIEW- 04/12 - ED at [place] for MS flare affective speech, swallowing, VOSS. [...] last night for SBP 200's. Was in retirement for 1 month over June for issues with BP and weakness after having 2 bleeding ulcers and 4 blood transfusions - had PT. She is feeling better since discharge; doing PT at the house. She had MRI brain done at [place] - I do not have the results [...] Wt 106 lb (48.1 kg) BMI 17.11 kg/m? General Appearance: Patient is in no [...] TSH VITAMIN B12: No results found for: [id number] No results found for: PHENYTOIN, PHENOBARB, VALPROATE, CBMZ No components found for: TOPIRA @RESULTINGLABINFO@ No results found for: LEVETIRACETA, FERRITIN, CRP, DENNIS, ANCA No results found for: CHRISTIANO, IMMUNOGLOBUL, OLIGOBANDS No results found for: DTT27DO, HEPCAB No results found for: CRP, ANATITER, ANCA FERRITIN: No results found for: FERRITIN ---- ECG 12 lead SINUS BRADYCARDIA PROBABLE (more content not included)... Normal [facility] Absolute lymphocyte countOrd ered By: Ramírez Onofre on 07-22-2025 Lymphocytes Auto (Unsp spec) [#/Vol] 0.86 10*3/uL 0.83-4.51 [facility] Anion gap in Serum or Plasma Ordered By: Ramírez Onofre on 07-22-2025 Anion gap [Moles/Vol] 10 mmol/L 5-15 [facility] Automated lymphocyte count a s percentage of total leukocytesOrdered By: Ramírez Onofre on 07-22-2025 Lymphocytes/100 WBC Auto (Unsp spec) 12.6 % Low 19-41 [facility] BUN/creatinine ratioOrdered By: Ramírez Onofre on 07-22-2025 Urea nitrogen/Creatinine [Mass ratio] 25.8 mg/mg High 10-20 [facility] Basophil percentageOrdered B y: Ramírez Onofre on 07-22-2025 Basophils/100 WBC (Bld) 0.9 % 0-1 [facility] Brain/Head without Contrasto n 07-22-2025 Brain/Head without Contrast Normal [facility] CBC W/Diff, Automatedon Absolute Lymph 0.86 X10 3/uL Normal 0.83-4.51 [facility] Comment on above: Performed By: #### L 100.0100, L500.2500 ####[facility] [address] [place], [address] Absolute Neut 4.8 X10 3/uL Normal 2.0-7.7 [facility] Comment on above: Performed By: #### L 100.0100, L500.2500 ####[facility] [address] [place], [address] Basophils/100 WBC (Bld) 0.9 % Normal 0-1 [facility] Comment on above: Performed By: #### L 100.0100, L500.2500 ####[facility] [address] [place], [address] Eosinophils/100 WBC (Bld) 5.0 % Normal 0-5 [facility] Comment on above: Performed By: #### L 100.0100, L500.2500 ####[facility] [address] [place], [address] Erythrocyte distribution width (RBC) [Ratio] 18.6 % High 11.6-14.6 [facility] Comment on above: Performed By: #### L 100.0100, L500.2500 ####[facility] [address] [place], [address] Hematocrit (Bld) [Volume fraction] 36.7 % Low 37-47 [facility] Comment on above: Performed By: #### L 100.0100, L500.2500 ####[facility] [address] [place], [address] Hemoglobin (Bld) [Mass/Vol] 11.6 g/dL Low 12.0-15.0 [facility] Comment on above: Performed By: #### L 100.0100, L500.2500 ####[facility] [address] [place], [address] IG% 1.200 High 0.0-0.9 [facility] Comment on above: Result Comment: IG% - Immature Granulocytes (promyelocytes, myelocytes andmetamyelocytes) > 1% indicates that a LEFT SHIFT is Present. Performed By: #### L 100.0100, L500.2500 ####[facility] [id number] [place], [address] Lymphocytes/100 WBC (Bld) 12.6 % Low 19-41 [facility] Comment on above: Performed By: #### L 100.0100, L500.2500 ####[facility] [id number] [place], [address] MCH (RBC) [Entitic mass] 27.2 pg Normal 27.0-32.0 [facility] Comment on above: Performed By: #### L 100.0100, L500.2500 ####[facility] [id number] [place], [address] MCHC (RBC) [Mass/Vol] 31.6 g/dL Low 32-36 [facility] Comment on above: Performed By: #### L 100.0100, L500.2500 ####[facility] [id number] [place], [address] MCV (RBC) [Entitic vol] 85.9 fL Normal 81-99 [facility] Comment on above: Performed By: #### L 100.0100, L500.2500 ####[facility] [id number] [place], [address] Monocytes/100 WBC (Bld) 9.6 % Normal 0-10 [facility] Comment on above: Performed By: #### L 100.0100, L500.2500 ####[facility] [id number] [place], [address] Neutrophils/100 WBC (Bld) 70.7 % High 47-70 [facility] Comment on above: Performed By: #### L 100.0100, L500.2500 ####[facility] [id number] [place], [address] Nucleated RBC (Bld) [#/Vol] 0 10*3/uL Normal 0-5 [facility] Comment on above: Performed By: #### L 100.0100, L500.2500 ####[facility] [address] [place], [address] Platelet mean volume (Bld) [Entitic vol] 9.5 fL Normal 6.2-12.0 [facility] Comment on above: Performed By: #### L 100.0100, L500.2500 ####[facility] [id number] [place], [address] Platelets (Bld) [#/Vol] 147 10*3/uL Low 150-450 [facility] Comment on above: Performed By: #### L 100.0100, L500.2500 ####[facility] [id number] [place], [address] RBC (Bld) [#/Vol] 4.27 10*6/uL Normal 4.2-5.4 [facility] Comment on above: Performed By: #### L 100.0100, L500.2500 ####[facility] [id number] [place], [address] RDW SD 59.1 fl High 35.1-43.9 [facility] Comment on above: Performed By: #### L 100.0100, L500.2500 ####[facility] [id number] [place], [address] WBC (Bld) [#/Vol] 6.8 10*3/uL Normal 4.4-11.[address] [facility] Comment on above: Performed By: #### L 100.0100, L500.2500 ####[facility] [id number] [place], [address] Carbon dioxide, total [Moles /volume] in Central venous bloodOrdered By: Ramírez Onofre on 07-22-2025 CO2 [Moles/Vol] 34.0 mmol/L High 21.0-32.0 [facility] Chloride assayOrdered By: Jesse Onofre on 07-22-2025 Chloride [Moles/Vol] 94 mmol/L Low 98-108 [facility] Emergency Department Summary on 07-22-2025 Emergency Department Summary Normal [facility] Eosinophil percentageOrdered By: Ramírez Onofre on 07-22-2025 Eosinophils/100 WBC (Bld) 5.0 % 0-5 [facility] Erythrocyte distribution wid th ratioOrdered By: Ramírez Onofre on 07-22-2025 Erythrocyte distribution width (RBC) [Ratio] 18.6 % High 11.6-14.6 [facility] Erythrocyte distribution wid th standard deviationOrdered By: Ramírez Onofre on 07-22-2025 Erythrocyte distribution width (RBC) [Ratio] 59.1 fl High 35.1-43.9 [facility] Glomerular filtration rate ( GFR) estimation/1.73 sq m using serum, plasma, or whole bOrdered By: Ramírez Onofre on 07-22-2025 GFR/1.73 sq M.predicted among non-blacks MDRD (S/P/Bld) [Vol rate/Area] 51 mL/min/{1.73_m2} Low >60 [facility] Hematocrit Auto (Bld) [Volum e fraction]Ordered By: Ramírez Onofre on 07-22-2025 Hematocrit (Bld) [Volume fraction] 36.7 % Low 37-47 [facility] Hemoglobin measurementOrdere d By: Ramírez Onofre on 07-22-2025 Hemoglobin (Bld) [Mass/Vol] 11.6 g/dL Low 12.0-15.0 [facility] Immature granulocytes/100 WB C Auto (Bld)Ordered By: Ramírez Onofre on 07-22-2025 Immature granulocytes/100 WBC (Bld) 1.200 % High 0.0-0.9 [facility] MCV (mean corpuscular volume ) determinationOrdered By: Ramírez Onofre on 07-22-2025 MCV (RBC) [Entitic vol] 85.9 fL 81-99 [facility] Mean corpuscular hemoglobin (MCH) determinationOrdered By: Ramírez Onofre on 07-22-2025 MCH (RBC) [Entitic mass] 27.2 pg 27.0-32.0 [facility] Monocyte percentageOrdered B y: Ramírez Onofre on 07-22-2025 Monocytes/100 WBC (Bld) 9.6 % 0-10 [facility] Neutrophil percentageOrdered By: Ramírez Oonfre on 07-22-2025 Neutrophils/100 WBC (Bld) 70.7 % High 47-70 [facility] Platelet countOrdered By: Jesse Onofre on 07-22-2025 Platelets (Bld) [#/Vol] 147 10*3/uL Low 150-450 [facility] Potassium measurement (mass/ volume)Ordered By: Ramírez Onofre on 07-22-2025 Potassium (Unsp spec) [Mass/Vol] 4.0 mmol/L 3.3-5.1 [facility] RBC Auto (Bld) [#/Vol]Ordere d By: Ramírez Onofre on 07-22-2025 RBC (Bld) [#/Vol] 4.27 10*6/uL 4.2-5.4 [facility] Serum creatinine measurement (mass/volume)Ordered By: Ramírez Onofre on 07-22-2025 Creatinine [Mass/Vol] 1.14 mg/dL 0.70-1.20 [facility] Serum glucose measurement (m ass/volume)Ordered By: Ramírez Onofre on 07-22-2025 Glucose [Mass/Vol] 125 mg/dL High 70-[address] [facility] Serum or plasma calcium stefania urement (mass/volume)Ordered By: Ramírez Onofre on 07-22-2025 Calcium [Mass/Vol] 9.4 mg/dL 7.6-11.[address] [facility] Serum or plasma urea nitroge n measurement (mass/volume)Ordered By: Ramírez Onofre on 07-22-2025 Urea nitrogen [Mass/Vol] 29 mg/dL High 4-19 [facility] Sodium levelOrdered By: Ramírez Onofre on 07-22-2025 Sodium [Moles/Vol] 139 mmol/L 133-[address] [facility] White blood cell (WBC) count Ordered By: Ramírez Onofre on 07-22-2025 WBC (Bld) [#/Vol] 6.8 10*3/uL 4.4-11.[address] [facility] Brain/Head without Contrasto n 07-05-2025 Brain/Head without Contrast Normal [facility] Emergency Department Summary on 07-05-2025 Emergency Department Summary Normal [facility] Absolute lymphocyte countOrd ered By: Lucas Wyatt on 06-24-2025 Lymphocytes Auto (Unsp spec) [#/Vol] 0.91 10*3/uL 0.83-4.51 [facility] Anion gap in Serum or Plasma Ordered By: Lucas Wyatt on 06-24-2025 Anion gap [Moles/Vol] 9 mmol/L 5-15 [facility] Automated lymphocyte count a s percentage of total leukocytesOrdered By: Lucas Wyatt on 06-24-2025 Lymphocytes/100 WBC Auto (Unsp spec) 16.2 % Low 19-41 [facility] BUN/creatinine ratioOrdered By: Lucas Wyatt on 06-24-2025 Urea nitrogen/Creatinine [Mass ratio] 30.0 mg/mg High 10-20 [facility] Basophil percentageOrdered B y: Lucas Wyatt on 06-24-2025 Basophils/100 WBC (Bld) 0.9 % 0-1 [facility] Blood polychromasia detectio n by light microscopyOrdered By: Lucas Wyatt on 06-24-2025 Polychromasia LM Ql (Bld) 1+ [facility] Carbon dioxide, total [Moles /volume] in Central venous bloodOrdered By: Lucas Wyatt on 06-24-2025 CO2 [Moles/Vol] 35.3 mmol/L High 21.0-32.0 [facility] Chloride assayOrdered By: David Wyatt on 06-24-2025 Chloride [Moles/Vol] 96 mmol/L Low 98-108 [facility] Eosinophil percentageOrdered By: Lucas Wyatt on 06-24-2025 Eosinophils/100 WBC (Bld) 5.3 % High 0-5 [facility] Erythrocyte distribution wid th ratioOrdered By: ray Wyatt on 06-24-2025 Erythrocyte distribution width (RBC) [Ratio] 20.4 % High 11.6-14.6 [facility] Erythrocyte distribution wid th standard deviationOrdered By: Lucas Wyatt on 06-24-2025 Erythrocyte distribution width (RBC) [Ratio] 63.2 fl High 35.1-43.9 [facility] Glomerular filtration rate ( GFR) estimation/1.73 sq m using serum, plasma, or whole bOrdered By: Lucas Wyatt on 06-24-2025 GFR/1.73 sq M.predicted among non-blacks MDRD (S/P/Bld) [Vol rate/Area] 57 mL/min/{1.73_m2} Low >60 [facility] Hematocrit Auto (Bld) [Volum e fraction]Ordered By: Lucas Wyatt on 06-24-2025 Hematocrit (Bld) [Volume fraction] 32.0 % Low 37-47 [facility] Hemoglobin measurementOrdere d By: Lucas Wyatt on 06-24-2025 Hemoglobin (Bld) [Mass/Vol] 9.7 g/dL Low 12.0-15.0 [facility] Immature granulocytes/100 WB C Auto (Bld)Ordered By: Lucas Wyatt on 06-24-2025 Immature granulocytes/100 WBC (Bld) 0.500 % 0.0-0.9 [facility] MCV (mean corpuscular volume ) determinationOrdered By: Lucas Wyatt on 06-24-2025 MCV (RBC) [Entitic vol] 85.8 fL 81-99 [facility] Mean corpuscular hemoglobin (MCH) determinationOrdered By: Lucas Wyatt on 06-24-2025 MCH (RBC) [Entitic mass] 26.0 pg Low 27.0-32.0 [facility] Monocyte percentageOrdered B y: Lucas Wyatt on 06-24-2025 Monocytes/100 WBC (Bld) 14.4 % High 0-10 [facility] Neutrophil percentageOrdered By: Lucas Wyatt on 06-24-2025 Neutrophils/100 WBC (Bld) 62.7 % 47-70 [facility] No Panel InformationOrdered By: Lucas Wyatt on 06-24-2025 1+ [facility] Ovalocyte detectionOrdered B y: Lucas Wyatt on 06-24-2025 Ovalocytes LM Ql (Bld) 1+ [facility] Platelet countOrdered By: David Wyatt on 06-24-2025 Platelets (Bld) [#/Vol] 225 10*3/uL 150-450 [facility] Platelet estimateOrdered By: Lucas Wyatt on 06-24-2025 Platelets LM Ql (Bld) ADEQUATE ADEQ [facility] Potassium measurement (mass/ volume)Ordered By: Lucas Wyatt on 06-24-2025 Potassium (Unsp spec) [Mass/Vol] 3.9 mmol/L 3.3-5.1 [facility] RBC Auto (Bld) [#/Vol]Ordere d By: Lucas Wyatt on 06-24-2025 RBC (Bld) [#/Vol] 3.73 10*6/uL Low 4.2-5.4 [facility] Serum creatinine measurement (mass/volume)Ordered By: Lucas Wyatt on 06-24-2025 Creatinine [Mass/Vol] 1.05 mg/dL 0.70-1.20 [facility] Serum glucose measurement (m ass/volume)Ordered By: Lucas Wyatt on 06-24-2025 Glucose [Mass/Vol] 81 mg/dL 70-[address] [facility] Serum or plasma calcium stefania urement (mass/volume)Ordered By: Karricarmenyo Rutledgenaveedmarcelle on 06-24-2025 Calcium [Mass/Vol] 9.3 mg/dL 7.6-11.[address] [facility] Serum or plasma urea nitroge n measurement (mass/volume)Ordered By: Lucas Rutledgenaveedmarcelle on 06-24-2025 Urea nitrogen [Mass/Vol] 32 mg/dL High 4-19 [facility] Sodium levelOrdered By: Karri benito Aamirnaveedmarcelle on 06-24-2025 Sodium [Moles/Vol] 141 mmol/L 133-[address] [facility] White blood cell (WBC) count Ordered By: Lucas Wyatt on 06-24-2025 WBC (Bld) [#/Vol] 5.6 10*3/uL 4.4-11.[address] [facility] Absolute lymphocyte countOrd ered By: Lucas Wyatt on 06-17-2025 Lymphocytes Auto (Unsp spec) [#/Vol] 0.91 10*3/uL 0.83-4.51 [facility] Anion gap in Serum or Plasma Ordered By: Lucas Wyatt on 06-17-2025 Anion gap [Moles/Vol] 9 mmol/L 5-15 [facility] Automated lymphocyte count a s percentage of total leukocytesOrdered By: Lucas Wyatt on 06-17-2025 Lymphocytes/100 WBC Auto (Unsp spec) 13.6 % Low 19-41 [facility] BUN/creatinine ratioOrdered By: Lucas Wyatt on 06-17-2025 Urea nitrogen/Creatinine [Mass ratio] 28.7 mg/mg High 10-20 [facility] Basophil percentageOrdered B y: Davidrandalcarmenyo Rutledgenaveedmarcelle on 06-17-2025 Basophils/100 WBC (Bld) 0.6 % 0-1 [facility] Carbon dioxide, total [Moles /volume] in Central venous bloodOrdered By: Lucas Wyatt on 06-17-2025 CO2 [Moles/Vol] 35.8 mmol/L High 21.0-32.0 [facility] Chloride assayOrdered By: David Wyatt on 06-17-2025 Chloride [Moles/Vol] 93 mmol/L Low 98-108 [facility] Eosinophil percentageOrdered By: Lucas Wyatt on 06-17-2025 Eosinophils/100 WBC (Bld) 2.8 % 0-5 [facility] Erythrocyte distribution wid th ratioOrdered By: Lucas Wyatt on 06-17-2025 Erythrocyte distribution width (RBC) [Ratio] 19.1 % High 11.6-14.6 [facility] Erythrocyte distribution wid th standard deviationOrdered By: Lucas Wyatt on 06-17-2025 Erythrocyte distribution width (RBC) [Ratio] 58.8 fl High 35.1-43.9 [facility] Glomerular filtration rate ( GFR) estimation/1.73 sq m using serum, plasma, or whole bOrdered By: Lucas Wyatt on 06-17-2025 GFR/1.73 sq M.predicted among non-blacks MDRD (S/P/Bld) [Vol rate/Area] 58 mL/min/{1.73_m2} Low >60 [facility] Hematocrit Auto (Bld) [Volum e fraction]Ordered By: Lucas Wyatt 06-17-2025 Hematocrit (Bld) [Volume fraction] 32.0 % Low 37-47 [facility] Hemoglobin measurementOrdere d By: Lucas Wyatt 06-17-2025 Hemoglobin (Bld) [Mass/Vol] 9.6 g/dL Low 12.0-15.0 [facility] Immature granulocytes/100 WB C Auto (Bld)Ordered By: Lucas Wyatt on 06-17-2025 Immature granulocytes/100 WBC (Bld) 0.600 % 0.0-0.9 [facility] MCV (mean corpuscular volume ) determinationOrdered By: Lucas Wyatt on 06-17-2025 MCV (RBC) [Entitic vol] 85.1 fL 81-99 [facility] Mean corpuscular hemoglobin (MCH) determinationOrdered By: Lucas Wyatt 06-17-2025 MCH (RBC) [Entitic mass] 25.5 pg Low 27.0-32.0 [facility] Monocyte percentageOrdered B y: Lucas Wyatt on 06-17-2025 Monocytes/100 WBC (Bld) 12.7 % High 0-10 [facility] Neutrophil percentageOrdered By: Lucas Wyatt on 06-17-2025 Neutrophils/100 WBC (Bld) 69.7 % 47-70 [facility] Platelet countOrdered By: David Wyatt on 06-17-2025 Platelets (Bld) [#/Vol] 211 10*3/uL 150-450 [facility] Potassium measurement (mass/ volume)Ordered By: Lucas Wyatt on 06-17-2025 Potassium (Unsp spec) [Mass/Vol] 3.8 mmol/L 3.3-5.1 [facility] RBC Auto (Bld) [#/Vol]Ordere d By: Lucas Wyatt on 06-17-2025 RBC (Bld) [#/Vol] 3.76 10*6/uL Low 4.2-5.4 [facility] Serum creatinine measurement (mass/volume)Ordered By: Lucas Wyatt on 06-17-2025 Creatinine [Mass/Vol] 1.04 mg/dL 0.70-1.20 [facility] Serum glucose measurement (m ass/volume)Ordered By: Lucas Wyatt on 06-17-2025 Glucose [Mass/Vol] 87 mg/dL 70-[address] [facility] Serum or plasma calcium stefania urement (mass/volume)Ordered By: Lucas Wyatt on 06-17-2025 Calcium [Mass/Vol] 9.1 mg/dL 7.6-11.[address] [facility] Serum or plasma urea nitroge n measurement (mass/volume)Ordered By: Lucas Wyatt on 06-17-2025 Urea nitrogen [Mass/Vol] 30 mg/dL High 4-19 [facility] Sodium levelOrdered By: Karri Wyatt on 06-17-2025 Sodium [Moles/Vol] 138 mmol/L 133-[address] [facility] White blood cell (WBC) count Ordered By: Lucas Wyatt on 06-17-2025 WBC (Bld) [#/Vol] 6.7 10*3/uL 4.4-11.[address] [facility] Absolute lymphocyte countOrd ered By: Karribenito Allenmarcelle on 06-10-2025 Lymphocytes Auto (Unsp spec) [#/Vol] 1.52 10*3/uL 0.83-4.51 [facility] Anion gap in Serum or Plasma Ordered By: Lucas Wyatt on 06-10-2025 Anion gap [Moles/Vol] 11 mmol/L 5-15 [facility] Automated lymphocyte count a s percentage of total leukocytesOrdered By: Lucas Rutledgenaveedmarcelle on 06-10-2025 Lymphocytes/100 WBC Auto (Unsp spec) 24.7 % 19-41 [facility] BUN/creatinine ratioOrdered By: Karricarmenyo Rutledgenaveedmarcelle on 06-10-2025 Urea nitrogen/Creatinine [Mass ratio] 22.8 mg/mg High 10-20 [facility] Basophil percentageOrdered B y: Karricarmenyo Rutledgenaveedmarcelle on 06-10-2025 Basophils/100 WBC (Bld) 1.1 % High 0-1 [facility] Bilirubin, totalOrdered By: Karricarmenyo Rutledgenaveedmarcelle on 06-10-2025 Bilirubin [Mass/Vol] 0.45 mg/dL 0.00-1.30 [facility] Carbon dioxide, total [Moles /volume] in Central venous bloodOrdered By: Lucas Rutledgenaveedmarcelle on 06-10-2025 CO2 [Moles/Vol] 30.2 mmol/L 21.0-32.0 [facility] Chloride assayOrdered By: David shantelyo Rutledgenaveedmarcelle on 06-10-2025 Chloride [Moles/Vol] 96 mmol/L Low 98-108 [facility] Eosinophil percentageOrdered By: Davidrandalbenito Aamirnaveedmarcelle on 06-10-2025 Eosinophils/100 WBC (Bld) 5.8 % High 0-5 [facility] Erythrocyte distribution wid th ratioOrdered By: Davidrandalcarmenyo Rutledgenaveedmarcelle on 06-10-2025 Erythrocyte distribution width (RBC) [Ratio] 19.4 % High 11.6-14.6 [facility] Erythrocyte distribution wid th standard deviationOrdered By: Lucas Wyatt on 06-10-2025 Erythrocyte distribution width (RBC) [Ratio] 59.2 fl High 35.1-43.9 [facility] Glomerular filtration rate ( GFR) estimation/1.73 sq m using serum, plasma, or whole bOrdered By: Lucas Wyatt on 06-10-2025 GFR/1.73 sq M.predicted among non-blacks MDRD (S/P/Bld) [Vol rate/Area] 53 mL/min/{1.73_m2} Low >60 [facility] Hematocrit Auto (Bld) [Volum e fraction]Ordered By: Lucas Wyatt on 06-10-2025 Hematocrit (Bld) [Volume fraction] 30.1 % Low 37-47 [facility] Hemoglobin measurementOrdere d By: Lucas Wyatt on 06-10-2025 Hemoglobin (Bld) [Mass/Vol] 9.3 g/dL Low 12.0-15.0 [facility] Immature granulocytes/100 WB C Auto (Bld)Ordered By: Lucas Wyatt on 06-10-2025 Immature granulocytes/100 WBC (Bld) 0.500 % 0.0-0.9 [facility] MCV (mean corpuscular volume ) determinationOrdered By: Lucas Wyatt on 06-10-2025 MCV (RBC) [Entitic vol] 83.1 fL 81-99 [facility] Mean corpuscular hemoglobin (MCH) determinationOrdered By: Lucas Wyatt on 06-10-2025 MCH (RBC) [Entitic mass] 25.7 pg Low 27.0-32.0 [facility] Monocyte percentageOrdered B y: Lucas Wyatt on 06-10-2025 Monocytes/100 WBC (Bld) 10.1 % High 0-10 [facility] Neutrophil percentageOrdered By: Lucas Wyatt on 06-10-2025 Neutrophils/100 WBC (Bld) 57.8 % 47-70 [facility] No Panel InformationOrdered By: Lucas Wyatt on 06-10-2025 18 U/L <32 [facility] Platelet countOrdered By: David Wyatt on 06-10-2025 Platelets (Bld) [#/Vol] 148 10*3/uL Low 150-450 [facility] Potassium measurement (mass/ volume)Ordered By: Lucas Wyatt on 06-10-2025 Potassium (Unsp spec) [Mass/Vol] 3.9 mmol/L 3.3-5.1 [facility] RBC Auto (Bld) [#/Vol]Ordere d By: Lucas Wyatt on 06-10-2025 RBC (Bld) [#/Vol] 3.62 10*6/uL Low 4.2-5.4 [facility] Serum creatinine measurement (mass/volume)Ordered By: Lucas Wyatt on 06-10-2025 Creatinine [Mass/Vol] 1.11 mg/dL 0.70-1.20 [facility] Serum globulin measurementOr dered By: Lucas Wyatt on 06-10-2025 Globulin (S) [Mass/Vol] 2.1 g/dL Low 2.2-4.2 [facility] Serum glucose measurement (m ass/volume)Ordered By: Lucas Wyatt on 06-10-2025 Glucose [Mass/Vol] 102 mg/dL High 70-[address] [facility] Serum or plasma alanine pizarro otransferase (ALT) measurementOrdered By: Lucas Wyatt 06-10-2025 ALT [Catalytic activity/Vol] 18 U/L <35 [facility] Serum or plasma albumin stefania urement (mass/volume)Ordered By: Lucas Wyatt 06-10-2025 Albumin [Mass/Vol] 3.6 g/dL 3.4-4.[address] [facility] Serum or plasma albumin/glob ulin mass ratioOrdered By: Lucas Wyatt 06-10-2025 Albumin/Globulin [Mass ratio] 1.7 {ratio} 0.9-2.4 [facility] Serum or plasma alkaline anthony sphatase measurementOrdered By: Lucas Wyatt 06-10-2025 ALP [Catalytic activity/Vol] 125 U/L High 35-104 [facility] Serum or plasma calcium stefania urement (mass/volume)Ordered By: Lucas Wyatt on 06-10-2025 Calcium [Mass/Vol] 8.5 mg/dL 7.6-11.[address] [facility] Serum or plasma urea nitroge n measurement (mass/volume)Ordered By: Lucas Wyatt on 06-10-2025 Urea nitrogen [Mass/Vol] 25 mg/dL High 4-19 [facility] Sodium levelOrdered By: Karri Wyatt on 06-10-2025 Sodium [Moles/Vol] 138 mmol/L 133-[address] [facility] Total proteinOrdered By: Amandeep Wyatt on 06-10-2025 Protein [Mass/Vol] 5.7 g/dL Low 5.9-8.[address] [facility] White blood cell (WBC) count Ordered By: Lucas Wyatt on 06-10-2025 WBC (Bld) [#/Vol] 6.2 10*3/uL 4.4-11.[address] [facility] HH, Hemoglobin AND Hematocri ton 06-09-2025 Hematocrit (Bld) [Volume fraction] 26.7 % Low 37-47 [facility] Comment on above: Performed By: #### L 100.0600 ####[facility] [id number] [place], [place], [id number]) Hemoglobin (Bld) [Mass/Vol] 8.2 g/dL Low 12.0-15.0 [facility] Comment on above: Performed By: #### L 100.0600 ####[facility] [id number] [place], [address] Hematocrit Auto (Bld) [Volum e fraction]Ordered By: Dex Worrell on 06-09-2025 Hematocrit (Bld) [Volume fraction] 26.7 % Low 37-47 [facility] Hemoglobin measurementOrdere d By: Dex Worrell on 06-09-2025 Hemoglobin (Bld) [Mass/Vol] 8.2 g/dL Low 12.0-15.0 [facility] Absolute lymphocyte countOrd ered By: Roman Mckeon on 06-08-2025 Lymphocytes Auto (Unsp spec) [#/Vol] 0.55 10*3/uL Low 0.83-4.51 [facility] Anion gap in Serum or Plasma Ordered By: Roman Mckeon on 06-08-2025 Anion gap [Moles/Vol] 10 mmol/L 5-15 [facility] Automated lymphocyte count a s percentage of total leukocytesOrdered By: Roman Mckeon on 06-08-2025 Lymphocytes/100 WBC Auto (Unsp spec) 5.5 % Low - [facility] BUN/creatinine ratioOrdered By: Roman Mckeon on 06-08-2025 Urea nitrogen/Creatinine [Mass ratio] 12.1 mg/mg 09-07 [facility] Basic Metabolic Profile (BMP )on 06-08-2025 BUN/CRE 12.1 RATIO Normal 09-07 [facility] Comment on above: Performed By: #### L 100.0100, L500.2500 ####[facility] [id number] [place], [address] Calcium [Mass/Vol] 9.0 mg/dL Normal 7.6-11.[address] [facility] Comment on above: Performed By: #### L 100.0100, L500.2500 ####[facility] [id number] [place], [address] Chloride [Moles/Vol] 106 mmol/L Normal 98-108 [facility] Comment on above: Performed By: #### L 100.0100, L500.2500 ####[facility] [facility] [address] [place], [address] CO2 [Moles/Vol] 25.4 mmol/L Normal 21.0-32.0 [facility] Comment on above: Performed By: #### L 100.0100, L500.2500 ####[facility] [address] [place], [address] Creatinine [Mass/Vol] 1.04 mg/dL Normal 0.70-1.20 [facility] Comment on above: Performed By: #### L 100.0100, L500.2500 ####[facility] [address] [place], [address] ECRCL 41.12 ml/min Low 50-250 [facility] Comment on above: Performed By: #### L 100.0100, L500.2500 ####[facility] [address] [place], [address] GAP 10 Normal 5-15 [facility] Comment on above: Performed By: #### L 100.0100, L500.2500 ####[facility] [address] [place], [address] GFR/1.73 sq M.predicted among non-blacks MDRD (S/P/Bld) [Vol rate/Area] 58 mL/min/{1.73_m2} Low >60 [facility] Comment on above: Result Comment: mL/m in/1.73m2 CKD-EPI Creatinine Equation (2020) Performed By: #### L 100.0100, L500.2500 ####[facility] [address] [place], [address] Glucose [Mass/Vol] 157 mg/dL High 70-[address] [facility] Comment on above: Performed By: #### L 100.0100, L500.2500 ####[facility] [address] [place], [address] Potassium [Moles/Vol] 4.4 mmol/L Normal 3.3-5.1 [facility] Comment on above: Performed By: #### L 100.0100, L500.2500 ####[facility] [address] [place], [address] Sodium [Moles/Vol] 141 mmol/L Normal 133-[address] [facility] Comment on above: Performed By: #### L 100.0100, L500.2500 ####[facility] [address] [place], [address] Urea nitrogen [Mass/Vol] 13 mg/dL Normal 4-19 [facility] Comment on above: Performed By: #### L 100.0100, L500.2500 ####[facility] [address] [place], [address] Basophil percentageOrdered B y: Roman Sathishmagali on 06-08-2025 Basophils/100 WBC (Bld) 0.5 % 0-1 [facility] CBC W/Diff, Automatedon 05-20 Absolute Lymph 0.55 X10 3/uL Low 0.83-4.51 [facility] Comment on above: Performed By: #### L 100.0100, L500.2500 ####[facility] [address] [place], [address] Absolute Neut 8.8 X10 3/uL High 2.0-7.7 [facility] Comment on above: Performed By: #### L 100.0100, L500.2500 ####[facility] [address] [place], [address] Basophils/100 WBC (Bld) 0.5 % Normal 0-1 [facility] Comment on above: Performed By: #### L 100.0100, L500.2500 ####[facility] [address] [place], [address] Eosinophils/100 WBC (Bld) 1.4 % Normal 0-5 [facility] Comment on above: Performed By: #### L 100.0100, L500.2500 ####[facility] [address] [place], [address] Erythrocyte distribution width (RBC) [Ratio] 18.8 % High 11.6-14.6 [facility] Comment on above: Performed By: #### L 100.0100, L500.2500 ####[facility] [address] [place], [address] Hematocrit (Bld) [Volume fraction] 29.5 % Low 37-47 [facility] Comment on above: Performed By: #### L 100.0100, L500.2500 ####[facility] [address] [place], [address] Hemoglobin (Bld) [Mass/Vol] 9.0 g/dL Low 12.0-15.0 [facility] Comment on above: Performed By: #### L 100.0100, L500.2500 ####[facility] [address] [place], [address] IG% 0.500 Normal 0.0-0.9 [facility] Comment on above: Result Comment: IG% - Immature Granulocytes (promyelocytes, myelocytes andmetamyelocytes) > 1% indicates that a LEFT SHIFT is Present. Performed By: #### L 100.0100, L500.2500 ####[facility] [address] [place], [address] Lymphocytes/100 WBC (Bld) 5.5 % Low 19-41 [facility] Comment on above: Performed By: #### L 100.0100, L500.2500 ####[facility] [address], [address] MCH (RBC) [Entitic mass] 26.1 pg Low 27.0-32.0 [facility] Comment on above: Performed By: #### L 100.0100, L500.2500 ####[facility] [address] [place], [address] MCHC (RBC) [Mass/Vol] 30.5 g/dL Low 32-36 [facility] Comment on above: Performed By: #### L 100.0100, L500.2500 ####[facility] [address], [address] MCV (RBC) [Entitic vol] 85.5 fL Normal 81-99 [facility] Comment on above: Performed By: #### L 100.0100, L500.2500 ####[facility] [address] [place], [address] Monocytes/100 WBC (Bld) 5.2 % Normal 0-10 [facility] Comment on above: Performed By: #### L 100.0100, L500.2500 ####[facility] [address] [place], [address] Neutrophils/100 WBC (Bld) 86.9 % High 47-70 [facility] Comment on above: Performed By: #### L 100.0100, L500.2500 ####[facility] [address] [place], [address] Nucleated RBC (Bld) [#/Vol] 0 10*3/uL Normal 0-5 [facility] Comment on above: Performed By: #### L 100.0100, L500.2500 ####[facility] [address] [place], [address] Platelet mean volume (Bld) [Entitic vol] 9.6 fL Normal 6.2-12.0 [facility] Comment on above: Performed By: #### L 100.0100, L500.2500 ####[facility] [address] [place], [address] Platelets (Bld) [#/Vol] 109 10*3/uL Low 150-450 [facility] Comment on above: Performed By: #### L 100.0100, L500.2500 ####[facility] [address] [place], [address] RBC (Bld) [#/Vol] 3.45 10*6/uL Low 4.2-5.4 [facility] Comment on above: Performed By: #### L 100.0100, L500.2500 ####[facility] [address] [place], [address] RDW SD 59.3 fl High 35.1-43.9 [facility] Comment on above: Performed By: #### L 100.0100, L500.2500 ####[facility] [address] [place], [address] WBC (Bld) [#/Vol] 10.1 10*3/uL Normal 4.4-11.0 [facility] Comment on above: Performed By: #### L 100.0100, L500.2500 ####[facility] [address] [place], [address] Carbon dioxide, total [Moles /volume] in Central venous bloodOrdered By: Roman Mckeon on 06-08-2025 CO2 [Moles/Vol] 25.4 mmol/L 21.0-32.0 [facility] Chloride assayOrdered By: Edgar Mckeon on 06-08-2025 Chloride [Moles/Vol] 106 mmol/L 98-108 [facility] Eosinophil percentageOrdered By: Roman Mckeon on 06-08-2025 Eosinophils/100 WBC (Bld) 1.4 % 0-5 [facility] Erythrocyte distribution wid th ratioOrdered By: Roman Mckeon on 06-08-2025 Erythrocyte distribution width (RBC) [Ratio] 18.8 % High 11.6-14.6 [facility] Erythrocyte distribution wid th standard deviationOrdered By: Roman Mckeon on 06-08-2025 Erythrocyte distribution width (RBC) [Ratio] 59.3 fl High 35.1-43.9 [facility] Glomerular filtration rate ( GFR) estimation/1.73 sq m using serum, plasma, or whole bOrdered By: Roman Mckeon on 06-08-2025 GFR/1.73 sq M.predicted among non-blacks MDRD (S/P/Bld) [Vol rate/Area] 58 mL/min/{1.73_m2} Low >60 [facility] Immature granulocytes/100 WB C Auto (Bld)Ordered By: Roman Mckeon on 06-08-2025 Immature granulocytes/100 WBC (Bld) 0.500 % 0.0-0.9 [facility] MCV (mean corpuscular volume ) determinationOrdered By: Roman Mckeon on 06-08-2025 MCV (RBC) [Entitic vol] 85.5 fL 81-99 [facility] Mean corpuscular hemoglobin (MCH) determinationOrdered By: Roman Mckeon on 06-08-2025 MCH (RBC) [Entitic mass] 26.1 pg Low 27.0-32.0 [facility] Monocyte percentageOrdered B y: Roman Mckeon on 06-08-2025 Monocytes/100 WBC (Bld) 5.2 % 0-10 [facility] Neutrophil percentageOrdered By: Roman Mckeon on 06-08-2025 Neutrophils/100 WBC (Bld) 86.9 % High 47-70 [facility] Platelet countOrdered By: Edgar Mckeon on 06-08-2025 Platelets (Bld) [#/Vol] 109 10*3/uL Low 150-450 [facility] Potassium measurement (mass/ volume)Ordered By: Roman Mckeon on 06-08-2025 Potassium (Unsp spec) [Mass/Vol] 4.4 mmol/L 3.3-5.1 [facility] RBC Auto (Bld) [#/Vol]Ordere d By: Roman Mckeon on 06-08-2025 RBC (Bld) [#/Vol] 3.45 10*6/uL Low 4.2-5.4 [facility] Serum creatinine measurement (mass/volume)Ordered By: Roman Mckeon on 06-08-2025 Creatinine [Mass/Vol] 1.04 mg/dL 0.70-1.20 [facility] Serum glucose measurement (m ass/volume)Ordered By: Roman Mckeon on 06-08-2025 Glucose [Mass/Vol] 157 mg/dL High 70-[address] [facility] Serum or plasma calcium stefania urement (mass/volume)Ordered By: Roman Mckeon on 06-08-2025 Calcium [Mass/Vol] 9.0 mg/dL 7.6-11.[address] [facility] Serum or plasma urea nitroge n measurement (mass/volume)Ordered By: Roman Mckeon on 06-08-2025 Urea nitrogen [Mass/Vol] 13 mg/dL 4-19 [facility] Sodium levelOrdered By: Domingo Mckeon on 06-08-2025 Sodium [Moles/Vol] 141 mmol/L 133-[address] [facility] Urine Cultureon 06-08-2025 URC Culture exhibits no growth. Normal [facility] Comment on above: Performed By: #### M 100.2200, L400.0001 ####[facility] [address] [place], [address] White blood cell (WBC) count Ordered By: Roman Mckeon on 06-08-2025 WBC (Bld) [#/Vol] 10.1 10*3/uL 4.4-11.0 [facility] Basic Metabolic Profile (BMP )on 06-07-2025 BUN/CRE 16.1 RATIO Normal 10-20 [facility] Comment on above: Performed By: #### L 500.2500, L100.0500, L501.5200 ####[facility] [address] [place], [address] Calcium [Mass/Vol] 8.4 mg/dL Normal 7.6-11.[address] [facility] Comment on above: Performed By: #### L 500.2500, L100.0500, L501.5200 ####[facility] [address] [place], [address] Chloride [Moles/Vol] 102 mmol/L Normal 98-108 [facility] Comment on above: Performed By: #### L 500.2500, L100.0500, L501.5200 ####[facility] [address] [place], [address] CO2 [Moles/Vol] 27.2 mmol/L Normal 21.0-32.0 [facility] Comment on above: Performed By: #### L 500.2500, L100.0500, L501.5200 ####[facility] [address] [place], [address] Creatinine [Mass/Vol] 0.97 mg/dL Normal 0.70-1.20 [facility] Comment on above: Performed By: #### L 500.2500, L100.0500, L501.5200 ####[facility] [address] [place], [address] ECRCL 42.68 ml/min Low 50-250 [facility] Comment on above: Performed By: #### L 500.2500, L100.0500, L501.5200 ####[facility] [address] [place], [address] GAP 9 Normal 5-15 [facility] Comment on above: Performed By: #### L 500.2500, L100.0500, L501.5200 ####[facility] [address] [place], [address] GFR/1.73 sq M.predicted among non-blacks MDRD (S/P/Bld) [Vol rate/Area] 63 mL/min/{1.73_m2} Normal >60 [facility] Comment on above: Result Comment: mL/m in/1.73m2 CKD-EPI Creatinine Equation (2020) Performed By: #### L 500.2500, L100.0500, L501.5200 ####[facility] [address] [place], [address] Glucose [Mass/Vol] 108 mg/dL High 70-[address] [facility] Comment on above: Performed By: #### L 500.2500, L100.0500, L501.5200 ####[facility] [address] [place], [address] Potassium [Moles/Vol] 5.1 mmol/L Normal 3.3-5.1 [facility] Comment on above: Performed By: #### L 500.2500, L100.0500, L501.5200 ####[facility] [address] [place], [address] Sodium [Moles/Vol] 138 mmol/L Normal 133-[address] [facility] Comment on above: Performed By: #### L 500.2500, L100.0500, L501.5200 ####[facility] [address] [place], [address] Urea nitrogen [Mass/Vol] 16 mg/dL Normal 4-19 [facility] Comment on above: Performed By: #### L 500.2500, L100.0500, L501.5200 ####[facility] [address] [place], [address] Bilirubin Test strip Ql (U)O rdered By: Roman Mckeon on 06-07-2025 Bilirubin Ql (U) Negative Negative [facility] Brain/Head without Contrasto n 06-07-2025 Brain/Head without Contrast Normal [facility] CBC-Complete Blood Cnt No Di ffon 06-07-2025 Erythrocyte distribution width (RBC) [Ratio] 18.6 % High 11.6-14.6 [facility] Comment on above: Performed By: #### L 500.2500, L100.0500, L501.5200 ####[facility] [address] [place], [address] Hematocrit (Bld) [Volume fraction] 31.7 % Low 37-47 [facility] Comment on above: Performed By: #### L 500.2500, L100.0500, L501.5200 ####[facility] [address] [place], [address] Hemoglobin (Bld) [Mass/Vol] 9.7 g/dL Low 12.0-15.0 [facility] Comment on above: Performed By: #### L 500.2500, L100.0500, L501.5200 ####[facility] [address], [address] MCH (RBC) [Entitic mass] 25.7 pg Low 27.0-32.0 [facility] Comment on above: Performed By: #### L 500.2500, L100.0500, L501.5200 ####[facility] [address] [place], [address] MCHC (RBC) [Mass/Vol] 30.6 g/dL Low 32-36 [facility] Comment on above: Performed By: #### L 500.2500, L100.0500, L501.5200 ####[facility] [address], [address] MCV (RBC) [Entitic vol] 84.1 fL Normal 81-99 [facility] Comment on above: Performed By: #### L 500.2500, L100.0500, L501.5200 ####[facility] [address], [address] Platelet mean volume (Bld) [Entitic vol] 9.2 fL Normal 6.2-12.0 [facility] Comment on above: Performed By: #### L 500.2500, L100.0500, L501.5200 ####[facility] [address] [place], [address] Platelets (Bld) [#/Vol] 134 10*3/uL Low 150-450 [facility] Comment on above: Performed By: #### L 500.2500, L100.0500, L501.5200 ####[facility] [address], [address] RBC (Bld) [#/Vol] 3.77 10*6/uL Low 4.2-5.4 [facility] Comment on above: Performed By: #### L 500.2500, L100.0500, L501.5200 ####[facility] [address] [place], [address] RDW SD 57.4 fl High 35.1-43.9 [facility] Comment on above: Performed By: #### L 500.2500, L100.0500, L501.5200 ####[facility] [address] [place], [address] WBC (Bld) [#/Vol] 8.1 10*3/uL Normal 4.4-11.[address] [facility] Comment on above: Performed By: #### L 500.2500, L100.0500, L501.5200 ####[facility] [address] [place], [address] Chest without Contraston Chest without Contrast Normal [facility] Hyaline casts LM.LPF (Urine sed) [#/Area]Ordered By: Roman Mckeon on 06-07-2025 Hyaline casts (Urine sed) [#/Area] 0 /[LPF] 0-5 [facility] Ketones Test strip Ql (U)Ord ered By: Roman Mckeon on 06-07-2025 Ketones Ql (U) Negative Negative [facility] Magnesiumon 06-07-2025 Magnesium [Mass/Vol] 1.8 mg/dL Normal 1.5-2.2 [facility] Comment on above: Performed By: #### L 500.2500, L100.0500, L501.5200 ####[facility] [address] [place], [address] Magnesium measurement (mass/ volume)Ordered By: Roman Mckeon on 06-07-2025 Magnesium (Unsp spec) [Mass/Vol] 1.8 mg/dL 1.5-2.2 [facility] Mucus LM Ql (Urine sed)Order ed By: Roman Mckeon on 06-07-2025 Mucus Ql (Urine sed) RARE /hpf [facility] Nitrite Test strip Ql (U)Ord ered By: Roman Mckeon on 06-07-2025 Nitrite Ql (U) Negative Negative [facility] Phosphoruson 06-07-2025 Phosphate [Mass/Vol] 2.6 mg/dL Low 2.7-4.5 [facility] Comment on above: Performed By: #### L 501.2300 ####[facility] [address], [address] Protein Test strip Ql (U)Ord ered By: Roman Mckeon on 06-07-2025 Protein Ql (U) 15 mg/dl High Negative [facility] Squamous epithelial cells de tection in urine sediment by light microscopyOrdered By: Roman Mckeon on 06-07-2025 Epithelial cells.squamous LM Ql (Urine sed) 0-5 SEEN /hpf -10 [facility] Urinalysis, Completeon 06-07 CAST,HYALINE 0-5 SEEN Normal 0-5 [facility] Comment on above: Order Comment: GABY TER SPECIMEN Performed By: #### M 100.2200, L400.0001 ####[facility] [address] [place], [address] EPI,SQUAMOUS 0-5 SEEN Normal - [facility] Comment on above: Order Comment: GABY TER SPECIMEN Performed By: #### M 100.2200, L400.0001 ####[facility] [address], [address] Mucus Ql (Urine sed) RARE Normal [facility] Comment on above: Order Comment: GABY TER SPECIMEN Performed By: #### M 100.2200, L400.0001 ####[facility] [address], [address] WBC 0-5 SEEN Normal 0-5 [facility] Comment on above: Order Comment: GABY TER SPECIMEN Performed By: #### M 100.2200, L400.0001 ####[facility] [address] [place], [address] BACTERIA 0 SEEN Normal None Seen [facility] Comment on above: Order Comment: GABY TER SPECIMEN Performed By: #### M 100.2200, L400.0001 ####[facility] [address] [place], [address] RBC 0 SEEN Normal 0-5 [facility] Comment on above: Order Comment: GABY TER SPECIMEN Performed By: #### M 100.2200, L400.0001 ####[facility] [address] [place], [address] Urine clarityOrdered By: Tripp Mckeon on 06-07-2025 Clarity (U) Clear Clear [facility] Urine color determinationOrd ered By: Roman Mckeon on 06-07-2025 Color (U) Yellow Yellow [facility] Urine cultureOrdered By: Tripp Mckeon on 06-07-2025 Bacteria identified Cx Nom (U) Culture exhibits no growth. [facility] Urine glucose detectionOrder ed By: Roman Mckeon on 06-07-2025 Glucose Ql (U) Normal mg/dl Normal [facility] Urine leukocyte esterase det ection by dipstickOrdered By: Roman Mckeon on 06-07-2025 Leukocyte esterase Test strip Ql (U) Negative Negative [facility] Urine pHOrdered By: Roman kapoor on 06-07-2025 pH (U) 7.0 [pH] 5.0 - 8.0 [facility] Urine sediment bacteria coun t by microscopy (number/high power field)Ordered By: Roman Mckeon on 06-07-2025 Bacteria LM.HPF (Urine sed) [#/Area] 0 /[HPF] None Seen [facility] Urine specific gravity measu rementOrdered By: Roman Mckeon on 06-07-2025 Specific gravity (U) [Rel density] 1.005 1.002-1.03 0 [facility] Urine urobilinogen measureme ntOrdered By: Roman Mckeon on 06-07-2025 Urobilinogen Ql (U) Normal mg/dl Normal [facility] White blood cell countOrdere d By: Roman Mckeon on 06-07-2025 White blood cell count 0-5 SEEN /hpf 0-5 [facility] Basic Metabolic Profile (BMP )on 06-06-2025 BUN/CRE 13.9 RATIO Normal 10-20 [facility] Comment on above: Performed By: #### L 500.2500, L100.0100 ####[facility] [address] [place], [address] Calcium [Mass/Vol] 7.9 mg/dL Normal 7.6-11.[address] [facility] Comment on above: Performed By: #### L 500.2500, L100.0100 ####[facility] [address], [address] Chloride [Moles/Vol] 104 mmol/L Normal 98-108 [facility] Comment on above: Performed By: #### L 500.2500, L100.0100 ####[facility] [address], [address] CO2 [Moles/Vol] 26.1 mmol/L Normal 21.0-32.0 [facility] Comment on above: Performed By: #### L 500.2500, L100.0100 ####[facility] [address] [place], [address] Creatinine [Mass/Vol] 0.99 mg/dL Normal 0.70-1.20 [facility] Comment on above: Performed By: #### L 500.2500, L100.0100 ####[facility] [address] [place], [address] ECRCL 40.15 ml/min Low 50-250 [facility] Comment on above: Performed By: #### L 500.2500, L100.0100 ####[facility] [address], [address] GAP 9 Normal 5-15 [facility] Comment on above: Performed By: #### L 500.2500, L100.0100 ####[facility] [address] [place], [address] GFR/1.73 sq M.predicted among non-blacks MDRD (S/P/Bld) [Vol rate/Area] 61 mL/min/{1.73_m2} Normal >60 [facility] Comment on above: Result Comment: mL/m in/1.73m2 CKD-EPI Creatinine Equation (2020) Performed By: #### L 500.2500, L100.0100 ####[facility] [address] [place], [address] Glucose [Mass/Vol] 84 mg/dL Normal 70-[address] [facility] Comment on above: Performed By: #### L 500.2500, L100.0100 ####[facility] [address] [place], [address] Potassium [Moles/Vol] 3.3 mmol/L Normal 3.3-5.1 [facility] Comment on above: Performed By: #### L 500.2500, L100.0100 ####[facility] [address] [place], [address] Sodium [Moles/Vol] 139 mmol/L Normal 133-[address] [facility] Comment on above: Performed By: #### L 500.2500, L100.0100 ####[facility] [address] [place], [address] Urea nitrogen [Mass/Vol] 14 mg/dL Normal 4-19 [facility] Comment on above: Performed By: #### L 500.2500, L100.0100 ####[facility] [address] [place], [address] CBC W/Diff, Automatedon 05-19 Absolute Lymph 1.30 X10 3/uL Normal 0.83-4.51 [facility] Comment on above: Performed By: #### L 500.2500, L100.0100 ####[facility] [address] [place], [address] Absolute Neut 4.5 X10 3/uL Normal 2.0-7.7 [facility] Comment on above: Performed By: #### L 500.2500, L100.0100 ####[facility] [address] [place], [address] Basophils/100 WBC (Bld) 1.0 % Normal 0-1 [facility] Comment on above: Performed By: #### L 500.2500, L100.0100 ####[facility] [address] [place], [address] Eosinophils/100 WBC (Bld) 3.4 % Normal 0-5 [facility] Comment on above: Performed By: #### L 500.2500, L100.0100 ####[facility] [address] [place], [address] Erythrocyte distribution width (RBC) [Ratio] 18.3 % High 11.6-14.6 [facility] Comment on above: Performed By: #### L 500.2500, L100.0100 ####[facility] [address] [place], [address] Hematocrit (Bld) [Volume fraction] 26.8 % Low 37-47 [facility] Comment on above: Performed By: #### L 500.2500, L100.0100 ####[facility] [address] [place], [address] Hemoglobin (Bld) [Mass/Vol] 8.4 g/dL Low 12.0-15.0 [facility] Comment on above: Performed By: #### L 500.2500, L100.0100 ####[facility] [address] [place], [address] IG% 0.600 Normal 0.0-0.9 [facility] Comment on above: Result Comment: IG% - Immature Granulocytes (promyelocytes, myelocytes andmetamyelocytes) > 1% indicates that a LEFT SHIFT is Present. Performed By: #### L 500.2500, L100.0100 ####[facility] [address], [address] Lymphocytes/100 WBC (Bld) 19.0 % Normal 19-41 [facility] Comment on above: Performed By: #### L 500.2500, L100.0100 ####[facility] [address] [place], [address] MCH (RBC) [Entitic mass] 25.8 pg Low 27.0-32.0 [facility] Comment on above: Performed By: #### L 500.2500, L100.0100 ####[facility] [address] [place], [address] MCHC (RBC) [Mass/Vol] 31.3 g/dL Low 32-36 [facility] Comment on above: Performed By: #### L 500.2500, L100.0100 ####[facility] [address] [place], [address] MCV (RBC) [Entitic vol] 82.2 fL Normal 81-99 [facility] Comment on above: Performed By: #### L 500.2500, L100.0100 ####[facility] [address] [place], [address] Monocytes/100 WBC (Bld) 10.7 % High 0-10 [facility] Comment on above: Performed By: #### L 500.2500, L100.0100 ####[facility] [address], [address] Neutrophils/100 WBC (Bld) 65.3 % Normal 47-70 [facility] Comment on above: Performed By: #### L 500.2500, L100.0100 ####[facility] [address] [place], [address] Nucleated RBC (Bld) [#/Vol] 0 10*3/uL Normal 0-5 [facility] Comment on above: Performed By: #### L 500.2500, L100.0100 ####[facility] [address] [place], [address] Platelet mean volume (Bld) [Entitic vol] 10.2 fL Normal 6.2-12.0 [facility] Comment on above: Performed By: #### L 500.2500, L100.0100 ####[facility] [address] [place], [address] Platelets (Bld) [#/Vol] 122 10*3/uL Low 150-450 [facility] Comment on above: Performed By: #### L 500.2500, L100.0100 ####[facility] [address] [place], [address] RBC (Bld) [#/Vol] 3.26 10*6/uL Low 4.2-5.4 [facility] Comment on above: Performed By: #### L 500.2500, L100.0100 ####[facility] [address] [place], [address] RDW SD 54.3 fl High 35.1-43.9 [facility] Comment on above: Performed By: #### L 500.2500, L100.0100 ####[facility] [address] [place], [address] WBC (Bld) [#/Vol] 6.9 10*3/uL Normal 4.4-11.[address] [facility] Comment on above: Performed By: #### L 500.2500, L100.0100 ####[facility] [address] [place], [address] Basic Metabolic Profile (BMP )on 06-05-2025 BUN/CRE 13.2 RATIO Normal 10-20 [facility] Comment on above: Performed By: #### L 100.0100, L500.2500 ####[facility] [address] [place], [address] Calcium [Mass/Vol] 7.9 mg/dL Normal 7.6-11.[address] [facility] Comment on above: Performed By: #### L 100.0100, L500.2500 ####[facility] [address], [address] Chloride [Moles/Vol] 104 mmol/L Normal 98-108 [facility] Comment on above: Performed By: #### L 100.0100, L500.2500 ####[facility] [address], [address] CO2 [Moles/Vol] 24.5 mmol/L Normal 21.0-32.0 [facility] Comment on above: Performed By: #### L 100.0100, L500.2500 ####[facility] [address], [address] Creatinine [Mass/Vol] 1.00 mg/dL Normal 0.70-1.20 [facility] Comment on above: Performed By: #### L 100.0100, L500.2500 ####[facility] [address], [address] ECRCL 38.84 ml/min Low 50-250 [facility] Comment on above: Performed By: #### L 100.0100, L500.2500 ####[facility] [address], [address] GAP 11 Normal 5-15 [facility] Comment on above: Performed By: #### L 100.0100, L500.2500 ####[facility] [address] [place], [address] GFR/1.73 sq M.predicted among non-blacks MDRD (S/P/Bld) [Vol rate/Area] 61 mL/min/{1.73_m2} Normal >60 [facility] Comment on above: Result Comment: mL/m in/1.73m2 CKD-EPI Creatinine Equation (2020) Performed By: #### L 100.0100, L500.2500 ####[facility] [address] [place], [address] Glucose [Mass/Vol] 73 mg/dL Normal 70-[address] [facility] Comment on above: Performed By: #### L 100.0100, L500.2500 ####[facility] [address] [place], [address] Potassium [Moles/Vol] 3.6 mmol/L Normal 3.3-5.1 [facility] Comment on above: Performed By: #### L 100.0100, L500.2500 ####[facility] [address] [place], [address] Sodium [Moles/Vol] 139 mmol/L Normal 133-[address] [facility] Comment on above: Performed By: #### L 100.0100, L500.2500 ####[facility] [address] [place], [address] Urea nitrogen [Mass/Vol] 13 mg/dL Normal 4-19 [facility] Comment on above: Performed By: #### L 100.0100, L500.2500 ####[facility] [address] [place], [address] Blood manual differential co mment interpretation (narrative result)Ordered By: Roman Mckeon on 06-05-2025 Manual differential comment Jimy (Bld) [Interp] SCANNED [facility] CBC W/Diff, Automatedon 05-19 Absolute Lymph 0.64 X10 3/uL Low 0.83-4.51 [facility] Comment on above: Order Comment: Comme nts: collect 2hrs post 1u blood transfusion Performed By: #### L 100.0100 ####[facility] [address] [place], [address] Absolute Neut 4.9 X10 3/uL Normal 2.0-7.7 [facility] Comment on above: Order Comment: Comme nts: collect 2hrs post 1u blood transfusion Performed By: #### L 100.0100 ####[facility] [address] [place], [address] Basophils/100 WBC (Bld) 0.5 % Normal 0-1 [facility] Comment on above: Order Comment: Comme nts: collect 2hrs post 1u blood transfusion Performed By: #### L 100.0100 ####[facility] [address] [place], [address] Eosinophils/100 WBC (Bld) 2.4 % Normal 0-5 [facility] Comment on above: Order Comment: Comme nts: collect 2hrs post 1u blood transfusion Performed By: #### L 100.0100 ####[facility] [address] [place], [address] Erythrocyte distribution width (RBC) [Ratio] 17.5 % High 11.6-14.6 [facility] Comment on above: Order Comment: Comme nts: collect 2hrs post 1u blood transfusion Performed By: #### L 100.0100 ####[facility] [address] [place], [address] Hematocrit (Bld) [Volume fraction] 26.7 % Low 37-47 [facility] Comment on above: Order Comment: Comme nts: collect 2hrs post 1u blood transfusion Performed By: #### L 100.0100 ####[facility] [address] [place], [address] Hemoglobin (Bld) [Mass/Vol] 8.5 g/dL Low 12.0-15.0 [facility] Comment on above: Order Comment: Comme nts: collect 2hrs post 1u blood transfusion Performed By: #### L 100.0100 ####[facility] [address] [place], [address] IG% 0.300 Normal 0.0-0.9 [facility] Comment on above: Order Comment: Comme nts: collect 2hrs post 1u blood transfusion Result Comment: IG% - Immature Granulocytes (promyelocytes, myelocytes andmetamyelocytes) > 1% indicates that a LEFT SHIFT is Present. Performed By: #### L 100.0100 ####[facility] [address] [place], [address] Lymphocytes/100 WBC (Bld) 10.1 % Low 19-41 [facility] Comment on above: Order Comment: Comme nts: collect 2hrs post 1u blood transfusion Performed By: #### L 100.0100 ####[facility] [address] [place], [address] MCH (RBC) [Entitic mass] 26.4 pg Low 27.0-32.0 [facility] Comment on above: Order Comment: Comme nts: collect 2hrs post 1u blood transfusion Performed By: #### L 100.0100 ####[facility] [address] [place], [address] MCHC (RBC) [Mass/Vol] 31.8 g/dL Low 32-36 [facility] Comment on above: Order Comment: Comme nts: collect 2hrs post 1u blood transfusion Performed By: #### L 100.0100 ####[facility] [address] [place], [address] MCV (RBC) [Entitic vol] 82.9 fL Normal 81-99 [facility] Comment on above: Order Comment: Comme nts: collect 2hrs post 1u blood transfusion Performed By: #### L 100.0100 ####[facility] [address] [place], [address] Monocytes/100 WBC (Bld) 10.4 % High 0-10 [facility] Comment on above: Order Comment: Comme nts: collect 2hrs post 1u blood transfusion Performed By: #### L 100.0100 ####[facility] [address] [place], [address] Neutrophils/100 WBC (Bld) 76.3 % High 47-70 [facility] Comment on above: Order Comment: Comme nts: collect 2hrs post 1u blood transfusion Performed By: #### L 100.0100 ####[facility] [address] [place], [address] Nucleated RBC (Bld) [#/Vol] 0.5 10*3/uL Normal 0-5 [facility] Comment on above: Order Comment: Comme nts: collect 2hrs post 1u blood transfusion Performed By: #### L 100.0100 ####[facility] [address] [place], [address] Platelet mean volume (Bld) [Entitic vol] 9.8 fL Normal 6.2-12.0 [facility] Comment on above: Order Comment: Comme nts: collect 2hrs post 1u blood transfusion Performed By: #### L 100.0100 ####[facility] [address] [place], [address] Platelets (Bld) [#/Vol] 114 10*3/uL Low 150-450 [facility] Comment on above: Order Comment: Comme nts: collect 2hrs post 1u blood transfusion Performed By: #### L 100.0100 ####[facility] [address] [place], [address] RBC (Bld) [#/Vol] 3.22 10*6/uL Low 4.2-5.4 [facility] Comment on above: Order Comment: Comme nts: collect 2hrs post 1u blood transfusion Performed By: #### L 100.0100 ####[facility] [address] [place], [address] RDW SD 52.8 fl High 35.1-43.9 [facility] Comment on above: Order Comment: Comme nts: collect 2hrs post 1u blood transfusion Performed By: #### L 100.0100 ####[facility] [address] [place], [address] WBC (Bld) [#/Vol] 6.4 10*3/uL Normal 4.4-11.[address] [facility] Comment on above: Order Comment: Comme nts: collect 2hrs post 1u blood transfusion Performed By: #### L 100.0100 ####[facility] [address] [place], [address] SMEAR COMMENT SCANNED Normal [facility] Comment on above: Performed By: #### L 100.0100, L500.2500 ####[facility] [address] [place], [address] EGD Reporton 06-05-2025 EGD Report Normal [facility] MR/POSTOP.ANEon 06-05-2025 MR/POSTOP.ANE Normal [facility] MR/KYXQEXRY0mz 06-05-2025 MR/POSTOPAN2 Normal [facility] Activated partial thrombopla stin time (aPTT) in platelet poor plasma by coagulation aOrdered By: Shyam Acharya on 06-04-2025 aPTT Coag (PPP) [Time] 29.9 s 24.1-36.2 [facility] Basic Metabolic Profile (BMP )on 06-04-2025 BUN/CRE 14.9 RATIO Normal 10-20 [facility] Comment on above: Performed By: #### L 501.5200, L501.2300, L500.2500, L100.0100 ####[facility] [address] [place], [address] Calcium [Mass/Vol] 7.5 mg/dL Low 7.6-11.[address] [facility] Comment on above: Performed By: #### L 501.5200, L501.2300, L500.2500, L100.0100 ####[facility] [address] [place], [address] Chloride [Moles/Vol] 97 mmol/L Low 98-108 [facility] Comment on above: Performed By: #### L 501.5200, L501.2300, L500.2500, L100.0100 ####[facility] [address] [place], [address] CO2 [Moles/Vol] 26.9 mmol/L Normal 21.0-32.0 [facility] Comment on above: Performed By: #### L 501.5200, L501.2300, L500.2500, L100.0100 ####[facility] [address], [address] Creatinine [Mass/Vol] 1.15 mg/dL Normal 0.70-1.20 [facility] Comment on above: Performed By: #### L 501.5200, L501.2300, L500.2500, L100.0100 ####[facility] [address] [place], [address] ECRCL 34.35 ml/min Low 50-250 [facility] Comment on above: Performed By: #### L 501.5200, L501.2300, L500.2500, L100.0100 ####[facility] [address], [address] GAP 12 Normal 5-15 [facility] Comment on above: Performed By: #### L 501.5200, L501.2300, L500.2500, L100.0100 ####[facility] [address], [address] GFR/1.73 sq M.predicted among non-blacks MDRD (S/P/Bld) [Vol rate/Area] 51 mL/min/{1.73_m2} Low >60 [facility] Comment on above: Result Comment: mL/m in/1.73m2 CKD-EPI Creatinine Equation (2020) Performed By: #### L 501.5200, L501.2300, L500.2500, L100.0100 ####[facility] [address] [place], [address] Glucose [Mass/Vol] 85 mg/dL Normal 70-[address] [facility] Comment on above: Performed By: #### L 501.5200, L501.2300, L500.2500, L100.0100 ####[facility] [address] [place], [address] Potassium [Moles/Vol] 2.9 mmol/L Low 3.3-5.1 [facility] Comment on above: Performed By: #### L 501.5200, L501.2300, L500.2500, L100.0100 ####[facility] [address] [place], [address] Sodium [Moles/Vol] 136 mmol/L Normal 133-[address] [facility] Comment on above: Performed By: #### L 501.5200, L501.2300, L500.2500, L100.0100 ####[facility] [address] [place], [address] Urea nitrogen [Mass/Vol] 17 mg/dL Normal 4-19 [facility] Comment on above: Performed By: #### L 501.5200, L501.2300, L500.2500, L100.0100 ####[facility] [address] [place], [address] CBC W/Diff, Automatedon 07- Absolute Lymph 1.13 X10 3/uL Normal 0.83-4.51 [facility] Comment on above: Performed By: #### L 501.5200, L501.2300, L500.2500, L100.0100 ####[facility] [address] [place], [address] Absolute Neut 5.5 X10 3/uL Normal 2.0-7.7 [facility] Comment on above: Performed By: #### L 501.5200, L501.2300, L500.2500, L100.0100 ####[facility] [address] [place], [address] Basophils/100 WBC (Bld) 0.5 % Normal 0-1 [facility] Comment on above: Performed By: #### L 501.5200, L501.2300, L500.2500, L100.0100 ####[facility] [address] [place], [address] Eosinophils/100 WBC (Bld) 3.1 % Normal 0-5 [facility] Comment on above: Performed By: #### L 501.5200, L501.2300, L500.2500, L100.0100 ####[facility] [address] [place], [address] Erythrocyte distribution width (RBC) [Ratio] 18.1 % High 11.6-14.6 [facility] Comment on above: Performed By: #### L 501.5200, L501.2300, L500.2500, L100.0100 ####[facility] [address] [place], [address] Hematocrit (Bld) [Volume fraction] 24.3 % Low 37-47 [facility] Comment on above: Performed By: #### L 501.5200, L501.2300, L500.2500, L100.0100 ####[facility] [address] [place], [address] Hemoglobin (Bld) [Mass/Vol] 7.6 g/dL Low 12.0-15.0 [facility] Comment on above: Performed By: #### L 501.5200, L501.2300, L500.2500, L100.0100 ####[facility] [address] [place], [address] IG% 0.600 Normal 0.0-0.9 [facility] Comment on above: Result Comment: IG% - Immature Granulocytes (promyelocytes, myelocytes andmetamyelocytes) > 1% indicates that a LEFT SHIFT is Present. Performed By: #### L 501.5200, L501.2300, L500.2500, L100.0100 ####[facility] [address] [place], [address] Lymphocytes/100 WBC (Bld) 14.1 % Low 19-41 [facility] Comment on above: Performed By: #### L 501.5200, L501.2300, L500.2500, L100.0100 ####[facility] [address] [place], [address] MCH (RBC) [Entitic mass] 24.8 pg Low 27.0-32.0 [facility] Comment on above: Performed By: #### L 501.5200, L501.2300, L500.2500, L100.0100 ####[facility] [address] [place], [address] MCHC (RBC) [Mass/Vol] 31.3 g/dL Low 32-36 [facility] Comment on above: Performed By: #### L 501.5200, L501.2300, L500.2500, L100.0100 ####[facility] [address] [place], [address] MCV (RBC) [Entitic vol] 79.2 fL Low 81-99 [facility] Comment on above: Performed By: #### L 501.5200, L501.2300, L500.2500, L100.0100 ####[facility] [address] [place], [address] Monocytes/100 WBC (Bld) 12.9 % High 0-10 [facility] Comment on above: Performed By: #### L 501.5200, L501.2300, L500.2500, L100.0100 ####[facility] [address] [place], [address] Neutrophils/100 WBC (Bld) 68.8 % Normal 47-70 [facility] Comment on above: Performed By: #### L 501.5200, L501.2300, L500.2500, L100.0100 ####[facility] [address] [place], [address] Nucleated RBC (Bld) [#/Vol] 2.0 10*3/uL Normal 0-5 [facility] Comment on above: Performed By: #### L 501.5200, L501.2300, L500.2500, L100.0100 ####[facility] [address] [place], [address] Platelet mean volume (Bld) [Entitic vol] 9.9 fL Normal 6.2-12.0 [facility] Comment on above: Performed By: #### L 501.5200, L501.2300, L500.2500, L100.0100 ####[facility] [address] [place], [address] Platelets (Bld) [#/Vol] 129 10*3/uL Low 150-450 [facility] Comment on above: Performed By: #### L 501.5200, L501.2300, L500.2500, L100.0100 ####[facility] [address] [place], [address] RBC (Bld) [#/Vol] 3.07 10*6/uL Low 4.2-5.4 [facility] Comment on above: Performed By: #### L 501.5200, L501.2300, L500.2500, L100.0100 ####[facility] [address] [place], [address] RDW SD 52.5 fl High 35.1-43.9 [facility] Comment on above: Performed By: #### L 501.5200, L501.2300, L500.2500, L100.0100 ####[facility] [address] [place], [address] WBC (Bld) [#/Vol] 8.0 10*3/uL Normal 4.4-11.[address] [facility] Comment on above: Performed By: #### L 501.5200, L501.2300, L500.2500, L100.0100 ####[facility] [address], [address] HH, Hemoglobin AND Hematocri ton 06-04-2025 Hematocrit (Bld) [Volume fraction] 23.1 % Low 37-47 [facility] Comment on above: Performed By: #### L 100.0600 ####[facility] [address] [place], [address] Hemoglobin (Bld) [Mass/Vol] 7.4 g/dL Low 12.0-15.0 [facility] Comment on above: Performed By: #### L 100.0600 ####[facility] [address] [place], [address] L509.6001on 06-04-2025 CORTISOL 13.10 ug/dL Normal 6.02-18.40 [facility] Comment on above: Performed By: #### L 509.6001 ####[facility] [address] [place], [address] Magnesiumon 06-04-2025 Magnesium [Mass/Vol] 1.6 mg/dL Normal 1.5-2.2 [facility] Comment on above: Performed By: #### L 501.5200, L501.2300, L500.2500, L100.0100 ####[facility] [address], [address] Partial Thromboplast Timeon 06-04-2025 aPTT Coag (Bld) [Time] 29.9 s Normal 24.1-36.2 [facility] Comment on above: Performed By: #### L 300.4310, L300.3900 ####[facility] [address], [address] Phosphoruson 06-04-2025 Phosphate [Mass/Vol] 3.7 mg/dL Normal 2.7-4.5 [facility] Comment on above: Performed By: #### L 501.5200, L501.2300, L500.2500, L100.0100 ####[facility] [address] [place], [address] Prothrombin Time w/INRon INR Coag (PPP) [Relative time] 1.2 {INR} Normal [facility] Comment on above: Performed By: #### L 300.4310, L300.3900 ####[facility] [address], [address] PT Coag (PPP) [Time] 15.4 s High 11.7-14.9 [facility] Comment on above: Performed By: #### L 300.4310, L300.3900 ####[facility] [address], [address] Prothrombin timeOrdered By: Shyam Acharya on 06-04-2025 PT Coag (PPP) [Time] 15.4 s High 11.7-14.9 [facility] Serum or plasma cortisol felicia surement (mass/volume)Ordered By: Roman Hewitt on 06-04-2025 Cortisol [Mass/Vol] 13.10 ug/dL 6.02-18.40 [facility] Absolute lymphocyte countOrd ered By: Yasmani Haynes on 06-03-2025 Lymphocytes Auto (Unsp spec) [#/Vol] 1.02 10*3/uL 0.83-4.51 [facility] Anion gap in Serum or Plasma Ordered By: Yasmani Haynes on 06-03-2025 Anion gap [Moles/Vol] 14 mmol/L 5- [facility] Automated lymphocyte count a s percentage of total leukocytesOrdered By: Yasmani Haynes on 06-03-2025 Lymphocytes/100 WBC Auto (Unsp spec) 13.4 % Low 19- [facility] BRCon 06-03-2025 RC Normal [facility] Comment on above: Result Comment: [id number] OP RC NOT [id number] OP RC TRANSFUSED 06/05/25 [id number] OP RC NOT AVAILABLE Performed By: #### B RC ####[facility] [address] [place], [place], [address] Result Comment: [id number] OP RC TRANSFUSED 06/03/25 [id number] OP RC TRANSFUSED 06/03/25 0711 Performed By: #### B RC, BTS, M100.7900 ####[facility] [address] [place], [address] BUN/creatinine ratioOrdered By: Yasmani Haynes on 06-03-2025 Urea nitrogen/Creatinine [Mass ratio] 21.6 mg/mg High 09-07 [facility] Basic Metabolic Profile (BMP )on 06-03-2025 BUN/CRE 21.6 RATIO High 09-07 [facility] Comment on above: Performed By: #### L 100.0100, L500.2500, L500.3400, L503.7505, L501.5200 ####[facility] [address] [place], [address] Calcium [Mass/Vol] 8.1 mg/dL Normal 7.6-11.[address] [facility] Comment on above: Performed By: #### L 100.0100, L500.2500, L500.3400, L503.7505, L501.5200 ####[facility] [address] [place], [address] Chloride [Moles/Vol] 101 mmol/L Normal 98-108 [facility] Comment on above: Performed By: #### L 100.0100, L500.2500, L500.3400, L503.7505, L501.5200 ####[facility] [address] [place], [address] CO2 [Moles/Vol] 20.9 mmol/L Low 21.0-32.0 [facility] Comment on above: Performed By: #### L 100.0100, L500.2500, L500.3400, L503.7505, L501.5200 ####[facility] [address] [place], [address] Creatinine [Mass/Vol] 1.07 mg/dL Normal 0.70-1.20 [facility] Comment on above: Performed By: #### L 100.0100, L500.2500, L500.3400, L503.7505, L501.5200 ####[facility] [address] [place], [address] ECRCL 38.46 ml/min Low 50-250 [facility] Comment on above: Performed By: #### L 100.0100, L500.2500, L500.3400, L503.7505, L501.5200 ####[facility] [address] [place], [address] GAP 14 Normal 5-15 [facility] Comment on above: Performed By: #### L 100.0100, L500.2500, L500.3400, L503.7505, L501.5200 ####[facility] [address] [place], [address] GFR/1.73 sq M.predicted among non-blacks MDRD (S/P/Bld) [Vol rate/Area] 56 mL/min/{1.73_m2} Low >60 [facility] Comment on above: Result Comment: mL/m in/1.73m2 CKD-EPI Creatinine Equation (2020) Performed By: #### L 100.0100, L500.2500, L500.3400, L503.7505, L501.5200 ####[facility] [address] [place], [address] Glucose [Mass/Vol] 116 mg/dL High 70-[address] [facility] Comment on above: Performed By: #### L 100.0100, L500.2500, L500.3400, L503.7505, L501.5200 ####[facility] [address] [place], [address] Potassium [Moles/Vol] 3.7 mmol/L Normal 3.3-5.1 [facility] Comment on above: Performed By: #### L 100.0100, L500.2500, L500.3400, L503.7505, L501.5200 ####[facility] [address] [place], [address] Sodium [Moles/Vol] 136 mmol/L Normal 133-[address] [facility] Comment on above: Performed By: #### L 100.0100, L500.2500, L500.3400, L503.7505, L501.5200 ####[facility] [address] [place], [address] Urea nitrogen [Mass/Vol] 23 mg/dL High 4-19 [facility] Comment on above: Performed By: #### L 100.0100, L500.2500, L500.3400, L503.7505, L501.5200 ####[facility] [address] [place], [address] Basophil percentageOrdered B y: Yasmani Haynes on 06-03-2025 Basophils/100 WBC (Bld) 0.4 % 0-1 [facility] Bilirubin directOrdered By: Yasmani Haynes on 06-03-2025 Bilirubin.direct [Mass/Vol] 0.25 mg/dL 0.00-0.30 [facility] Bilirubin, totalOrdered By: Yasmani Haynes on 06-03-2025 Bilirubin [Mass/Vol] 0.47 mg/dL 0.00-1.30 [facility] Blood stomatocytes detection by light microscopyOrdered By: Yasmani Haynes on 06-03-2025 Stomatocytes LM Ql (Bld) 1+ [facility] CBC W/Diff, Automatedon 05-19 Anisocytosis Ql (Bld) RARE Normal [facility] Comment on above: Performed By: #### L 100.0100, L500.2500, L500.3400, L503.7505, L501.5200 ####[facility] [address] [place], [address] RED CELL MORPH N CYTIC Normal NORM C C [facility] Comment on above: Performed By: #### L 100.0100, L500.2500, L500.3400, L503.7505, L501.5200 ####[facility] [address] [place], [address] STOMATOCYTE 1+ Normal [facility] Comment on above: Performed By: #### L 100.0100, L500.2500, L500.3400, L503.7505, L501.5200 ####[facility] [address] [place], [address] Carbon dioxide, total [Moles /volume] in Central venous bloodOrdered By: Yasmani Haynes on 06-03-2025 CO2 [Moles/Vol] 20.9 mmol/L Low 21.0-32.0 [facility] Chest 1 View (Portable)on Chest 1 View (Portable) Normal W [facility] Chloride assayOrdered By: Kari Haynes on 06-03-2025 Chloride [Moles/Vol] 101 mmol/L 98-108 [facility] Emergency Department Summary on 06-03-2025 Emergency Department Summary Normal [facility] Eosinophil percentageOrdered By: Yasmani Haynes on 06-03-2025 Eosinophils/100 WBC (Bld) 2.0 % 0-5 [facility] Erythrocyte distribution wid th ratioOrdered By: Yasmani Haynes on 06-03-2025 Erythrocyte distribution width (RBC) [Ratio] 20.2 % High 11.6-14.6 [facility] Erythrocyte distribution wid th standard deviationOrdered By: Yasmani Haynes on 06-03-2025 Erythrocyte distribution width (RBC) [Ratio] 58.9 fl High 35.1-43.9 [facility] Erythrocyte morphology asses smentOrdered By: Yasmani Haynes on 06-03-2025 RBC morphology finding Nom (Bld) N CYTIC NORMAL NORM C&C [facility] Glomerular filtration rate ( GFR) estimation/1.73 sq m using serum, plasma, or whole bOrdered By: Yasmani Haynes on 06-03-2025 GFR/1.73 sq M.predicted among non-blacks MDRD (S/P/Bld) [Vol rate/Area] 56 mL/min/{1.73_m2} Low >60 [facility] H AND P Exam - Hospitaliston 06-03-2025 H&P Exam - Hospitalist Normal [facility] HH, Hemoglobin AND Hematocr iton 06-03-2025 Hematocrit (Bld) [Volume fraction] 24.7 % Low 37-47 [facility] Comment on above: Order Comment: JOE BREWER) CALLED TO BE PUSHED UP DUE TO EARLIERCOLLECTION ON FIRST SHIFT Performed By: #### L 100.0600 ####[facility] [address] [place], [place], [id number] Hemoglobin (Bld) [Mass/Vol] 7.9 g/dL Low 12.0-15.0 [facility] Comment on above: Order Comment: JOE (CHELITA) CALLED TO BE PUSHED UP DUE TO EARLIERCOLLECTION ON FIRST SHIFT Performed By: #### L 100.0600 ####[facility] [address] [place], [address] HCT Normal [address] [place] [address] Comment on above: Result Comment: WAS DONE AT 1222 PER HIEDI NURSE CAN SKIP 1400 AND DO 2000ONE Performed By: #### L 100.0600 ####[facility] [address] [place], [address] HGB Normal 12.0-15.0 [facility] Comment on above: Result Comment: WAS DONE AT 1222 PER HIEDI NURSE CAN SKIP 1400 AND DO 2000ONE Performed By: #### L 100.0600 ####[facility] [address] [place], [address] Hematocrit (Bld) [Volume fraction] 25.2 % Low [address] Comment on above: Performed By: #### L 100.0600 ####[facility] [address] [place], [address] Hemoglobin (Bld) [Mass/Vol] 7.8 g/dL Low 12.0-15.0 [facility] Comment on above: Performed By: #### L 100.0600 ####[facility] [address] [place], [address] Hematocrit (Bld) [Volume fraction] 22.5 % Low [address] [place] [address] Comment on above: Result Comment: PER PT RN, CHELITA, PT WAS STILL RECEIVING BLOOD. OK TOCANCEL, SINCE RESULT WILL NOT BE ACCURATE. Performed By: #### L 100.0600 ####[facility] [address] [place], [address] Hemoglobin (Bld) [Mass/Vol] 7.0 g/dL Low 12.0-15.0 [facility] Comment on above: Result Comment: PER PT RN, CHELITA, PT WAS STILL RECEIVING BLOOD. OK TOCANCEL, SINCE RESULT WILL NOT BE ACCURATE. Performed By: #### L 100.0600 ####[facility] [address] [place], [address] Hematocrit Auto (Bld) [Volum e fraction]Ordered By: Yasmani Haynes on 06-03-2025 Hematocrit (Bld) [Volume fraction] 18.0 % Low 37-47 [facility] Hemoglobin measurementOrdere d By: Yasmanimedardo Haynes on 06-03-2025 Hemoglobin (Bld) [Mass/Vol] 5.2 g/dL Low 12.0-15.0 [facility] Immature granulocytes/100 WB C Auto (Bld)Ordered By: Yasmanimedardo Haynes on 06-03-2025 Immature granulocytes/100 WBC (Bld) 0.800 % 0.0-0.9 [facility] L503.7505on 06-03-2025 Natriuretic peptide B (Bld) [Mass/Vol] 6776 pg/mL High <=900 [facility] Comment on above: Result Comment: Hear t Failure Unlikely: < 300 pg/mLHeart Failure Likely< 50 Years: > 450 pg/mL50-75 Years: > 900 pg/mL>75 Years: > 1800 pg/mL Performed By: #### L 100.0100, L500.2500, L500.3400, L503.7505, L501.5200 ####[facility] [address] [place], [address] Liver Profileon 06-03-2025 Albumin [Mass/Vol] 3.7 g/dL Normal 3.4-4.[address] [facility] Comment on above: Performed By: #### L 100.0100, L500.2500, L500.3400, L503.7505, L501.5200 ####[facility] [address] [place], [address] ALK PHOS 113 U/L High 35-104 [facility] Comment on above: Performed By: #### L 100.0100, L500.2500, L500.3400, L503.7505, L501.5200 ####[facility] [address] [place], [address] ALT [Catalytic activity/Vol] 95 U/L High <=34 [facility] Comment on above: Performed By: #### L 100.0100, L500.2500, L500.3400, L503.7505, L501.5200 ####[facility] [address] [place], [address] AST [Catalytic activity/Vol] 37 U/L High <=31 [facility] Comment on above: Performed By: #### L 100.0100, L500.2500, L500.3400, L503.7505, L501.5200 ####[facility] [address] [place], [address] Bilirubin [Mass/Vol] 0.47 mg/dL Normal 0.00-1.30 [facility] Comment on above: Performed By: #### L 100.0100, L500.2500, L500.3400, L503.7505, L501.5200 ####[facility] [address] [place], [address] Bilirubin.direct [Mass/Vol] 0.25 mg/dL Normal 0.00-0.30 [facility] Comment on above: Performed By: #### L 100.0100, L500.2500, L500.3400, L503.7505, L501.5200 ####[facility] [address] [place], [address] Globulin (S) [Mass/Vol] 2.0 g/dL Low 2.2-4.2 [facility] Comment on above: Performed By: #### L 100.0100, L500.2500, L500.3400, L503.7505, L501.5200 ####[facility] [address] [place], [address] T PROT 5.7 g/dL Low 5.9-8.4 [facility] Comment on above: Performed By: #### L 100.0100, L500.2500, L500.3400, L503.7505, L501.5200 ####[facility] [address] [place], [address] MCV (mean corpuscular volume ) determinationOrdered By: Yasmani Haynes on 06-03-2025 MCV (RBC) [Entitic vol] 78.9 fL Low 81-99 [facility] MR/CON.PCM.GIon 06-03-2025 MR/CON.PCM.GI Normal [facility] Magnesiumon 06-03-2025 Magnesium [Mass/Vol] 2.1 mg/dL Normal 1.5-2.2 [facility] Comment on above: Performed By: #### L 100.0100, L500.2500, L500.3400, L503.7505, L501.5200 ####[facility] [address] [place], [address] Magnesium measurement (mass/ volume)Ordered By: Yasmani Haynes on 06-03-2025 Magnesium (Unsp spec) [Mass/Vol] 2.1 mg/dL 1.5-2.2 [facility] Mean corpuscular hemoglobin (MCH) determinationOrdered By: Yasmani Haynes on 06-03-2025 MCH (RBC) [Entitic mass] 22.8 pg Low 27.0-32.0 [facility] Monocyte percentageOrdered B y: Yasmani Haynes on 06-03-2025 Monocytes/100 WBC (Bld) 14.0 % High 0-10 [facility] Natriuretic peptide.B prohor kristie N-Terminal [Mass/volume] in Serum or PlasmaOrdered By: Yasmani Haynes on 06-03-2025 Natriuretic peptide.B prohormone N-Terminal [Mass/Vol] 6776 pg/mL High <900 [facility] Neutrophil percentageOrdered By: Yasmani Haynes on 06-03-2025 Neutrophils/100 WBC (Bld) 69.4 % 47-70 [facility] No Panel InformationOrdered By: Yasmani Haynes on 06-03-2025 RARE [facility] 37 U/L High <32 [facility] Platelet countOrdered By: Kari Haynes on 06-03-2025 Platelets (Bld) [#/Vol] 181 10*3/uL 150-450 [facility] Potassium measurement (mass/ volume)Ordered By: Yasmani Haynes on 06-03-2025 Potassium (Unsp spec) [Mass/Vol] 3.7 mmol/L 3.3-5.1 [facility] RBC Auto (Bld) [#/Vol]Ordere d By: Yasmani Haynes on 06-03-2025 RBC (Bld) [#/Vol] 2.28 10*6/uL Low 4.2-5.4 [facility] Serum creatinine measurement (mass/volume)Ordered By: Yasmani Haynes on 06-03-2025 Creatinine [Mass/Vol] 1.07 mg/dL 0.70-1.20 [facility] Serum globulin measurementOr dered By: Yasmani Haynes on 06-03-2025 Globulin (S) [Mass/Vol] 2.0 g/dL Low 2.2-4.2 [facility] Serum glucose measurement (m ass/volume)Ordered By: Yasmani Haynes on 06-03-2025 Glucose [Mass/Vol] 116 mg/dL High 70-[address] [facility] Serum or plasma alanine pizarro otransferase (ALT) measurementOrdered By: Yasmani Haynes on 06-03-2025 ALT [Catalytic activity/Vol] 95 U/L High <35 [facility] Serum or plasma albumin stefania urement (mass/volume)Ordered By: Yasmani Haynes on 06-03-2025 Albumin [Mass/Vol] 3.7 g/dL 3.4-4.[address] [facility] Serum or plasma alkaline anthony sphatase measurementOrdered By: Yasmani Haynes on 06-03-2025 ALP [Catalytic activity/Vol] 113 U/L High 35-104 [facility] Serum or plasma calcium stefania urement (mass/volume)Ordered By: Yasmani Haynes on 06-03-2025 Calcium [Mass/Vol] 8.1 mg/dL 7.6-11.[address] [facility] Serum or plasma urea nitroge n measurement (mass/volume)Ordered By: Yasmani Haynes on 06-03-2025 Urea nitrogen [Mass/Vol] 23 mg/dL High 4-19 [facility] Sodium levelOrdered By: Joce Haynes on 06-03-2025 Sodium [Moles/Vol] 136 mmol/L 133-[address] [facility] Stool Occult Blood iFOBon STOB Normal [facility] Comment on above: Performed By: #### B KIKA, BTS, M100.0300 ####[facility] [address] [place], [address] Stool gastrointestinal hemog lobin detection by immunologic methodOrdered By: Yasmani Haynes on 06-03-2025 Lower GI hemoglobin IA Ql (Stl) [facility] Total proteinOrdered By: Ever Haynes on 06-03-2025 Protein [Mass/Vol] 5.7 g/dL Low 5.9-8.[address] [facility] Type AND Screenon 06-03-2025 ABO and Rh group Nom (Bld) Blood group O Rh(D) positive Normal [facility] Comment on above: Order Comment: Has p t arrived? YCMV NEG? NNumber of units to transfuse: 2Is pt's Hgb is = to 7.0 mg/dl or Hct </= 21%? YReason for Ordering Blood: ChronicAre the blood/blood products to be transfused? YIs the patient having/had surgery? NWanna Caicedo Performed By: #### B KIKA, BTS, M100.7900 ####[facility] [address] [place], [place], [id number] White blood cell (WBC) count Ordered By: Yasmani Haynes on 06-03-2025 WBC (Bld) [#/Vol] 7.6 10*3/uL 4.4-11.[address] [facility] Brain without Contraston 07- 02-2025 Brain without Contrast Normal [facility] Magnetic resonance imaging r eportOrdered By: Tc Baum on 05-20-2025 Study report [facility] Work Phone: Emergency Department Summary on 05-19-2025 Emergency Department Summary Normal [facility] Thyroid Antibodieson 025 TG AB < 1.0 Normal 0.0-0.9 [facility] Comment on above: Result Comment: Thyr oglobulin Antibody measured by StreetFireMethodologyIt should be noted that the presence of thyroglobulinantibodies may not be pathogenic nor diagnostic, especiallyat very low levels. The assay director talent has found thatfour percent of individuals without evidence of thyroiddisease or autoimmunity will have positive TgAb levels upto 4 IU/mL.Performed at: [employer] [facility] [id number] Director: Damion Richards PhD, Phone: [phone] Performed By: #### L 503.0106, [id number], L506.0200 ####[facility] [address] [place], [place], [id number] THYR PEROX AB < 9 Normal 0-34 [facility] Comment on above: Performed By: #### L 503.0106, L3300.6750, L506.0200 ####[facility] [address] [place], [place], [address] Absolute lymphocyte countOrd ered By: Daron Benton on 05-15-2025 Lymphocytes Auto (Unsp spec) [#/Vol] 1.09 10*3/uL 0.83-4.51 [facility] Anion gap in Serum or Plasma Ordered By: Daron Benton on 05-15-2025 Anion gap [Moles/Vol] 11 mmol/L 5-15 [facility] Automated lymphocyte count a s percentage of total leukocytesOrdered By: Draon Benton on 05-15-2025 Lymphocytes/100 WBC Auto (Unsp spec) 13.0 % Low 19-41 [facility] BUN/creatinine ratioOrdered By: Daron Benton on 05-15-2025 Urea nitrogen/Creatinine [Mass ratio] 22.7 mg/mg High 10-20 [facility] Basophil percentageOrdered B y: Daron Benton on 05-15-2025 Basophils/100 WBC (Bld) 0.8 % 0-1 [facility] Bilirubin, totalOrdered By: Daron Benton on 05-15-2025 Bilirubin [Mass/Vol] 0.18 mg/dL 0.00-1.30 [facility] Blood manual differential co mment interpretation (narrative result)Ordered By: Daron Benton on 05-15-2025 Manual differential comment Jimy (Bld) [Interp] SCANNED [facility] Blood polychromasia detectio n by light microscopyOrdered By: Daron Benton on 05-15-2025 Polychromasia LM Ql (Bld) 1+ [facility] CBC W/Diff, Automatedon 04-20 Anisocytosis Ql (Bld) 1+ Normal [facility] Comment on above: Order Comment: Order Date: 05/15/25Order Info: [id number] - CBCDOrder Info: [id number] - RETIC Performed By: #### L 503.6030, L100.0100, L100.9950, L506.0400, L501.09606, L500.4050, L501.9520, L503.6550 ####[facility] [address] [facility] [place], [place], [address] HYPOCHROMASIA 1+ Normal [facility] Comment on above: Order Comment: Order Date: 05/15/25Order Info: [id number] - CBCDOrder Info: [id number] - RETIC Performed By: #### L 503.6030, L100.0100, L100.9950, L506.0400, L501.21406, L500.4050, L501.9520, L503.6550 ####[facility] [address] [facility] [place], [place], [address] PLT EST ADEQUATE Normal ADEQ [facility] Comment on above: Order Comment: Order Date: 05/15/25Order Info: [id number] - CBCDOrder Info: [id number] - RETIC Performed By: #### L 503.6030, L100.0100, L100.9950, L506.0400, L501.32856, L500.4050, L501.9520, L503.6550 ####[facility] [address] [place], [address] POLYCHROMASIA 1+ Normal [facility] Comment on above: Order Comment: Order Date: 05/15/25Order Info: [id number] - CBCDOrder Info: [id number] - RETIC Performed By: #### L 503.6030, L100.0100, L100.9950, L506.0400, L501.05760, L500.4050, L501.9520, L503.6550 ####[facility] [address] [place], [address] SMEAR COMMENT SCANNED Normal [facility] Comment on above: Order Comment: Order Date: 05/15/25Order Info: 0184-1 - CBCDOrder Info: 4679-7 - RETIC Performed By: #### L 503.6030, L100.0100, L100.9950, L506.0400, L501.74844, L500.4050, L501.9520, L503.6550 ####[facility] [address] [place], [address] CTA Neck W/WO Contraston CTA Neck W/WO Contrast Normal [facility] [place] Carbon dioxide, total [Moles /volume] in Central venous bloodOrdered By: Daron Benton on 05-15-2025 CO2 [Moles/Vol] 25.0 mmol/L 21.0-32.0 [facility] Chloride assayOrdered By: Sarah Benton on 05-15-2025 Chloride [Moles/Vol] 100 mmol/L 98-108 [facility] Comprehensive Metabolic Prof ilon 05-15-2025 Albumin [Mass/Vol] 3.9 g/dL Normal 3.4-4.[address] [facility] Comment on above: Order Comment: Order Date: 05/15/25Order Info: 0786-1 - CMPOrder Info: 3051-0 - J2BLyhil Info: 3 - TSHOrder Info: - IBCOrder Info: 2276-02 - FEROrder Info: 8 - FOLSOrder Info: 3024-7 - T4F Performed By: #### L 503.6030, L100.0100, L100.9950, L506.0400, L501.08538, L500.4050, L501.9520, L503.6550 ####[facility] [address] [place], [place], [id number] Albumin/Globulin [Mass ratio] 1.7 {ratio} Normal 0.9-2.4 [facility] Comment on above: Order Comment: Order Date: 05/15/25Order Info: 0786-1 - CMPOrder Info: 0 - X6SHmeuj Info: 3 - TSHOrder Info: - IBCOrder Info: 2276-02 - FEROrder Info: 2284-06 - FOLSOrder Info: 302-7 - T4F Performed By: #### L 503.6030, L100.0100, L100.9950, L506.0400, L501.52445, L500.4050, L501.9520, L503.6550 ####[facility] [address] [place], [place], [phone] ALK PHOS 102 U/L Normal 35-104 [facility] Comment on above: Order Comment: Order Date: 05/15/25Order Info: 0786-1 - CMPOrder Info: 3050-0 - W6ZXpfqo Info: 3 - TSHOrder Info: - IBCOrder Info: 2276-02 - FEROrder Info: 8 - FOLSOrder Info: 3024-7 - T4F Performed By: #### L 503.6030, L100.0100, L100.9950, L506.0400, L501.56871, L500.4050, L501.9520, L503.6550 ####[facility] [address] [place], [address] ALT [Catalytic activity/Vol] 14 U/L Normal <=34 [facility] Comment on above: Order Comment: Order Date: 05/15/25Order Info: 0786-1 - CMPOrder Info: 3051-0 - B6RMrfgw Info: 3015-3 - TSHOrder Info: [id number] - IBCOrder Info: 2276-02 - FEROrder Info: 8 - FOLSOrder Info: 3024-7 - T4F Performed By: #### L 503.6030, L100.0100, L100.9950, L506.0400, L501.13746, L500.4050, L501.9520, L503.6550 ####[facility] [address] [place], [place], [phone] AST [Catalytic activity/Vol] 23 U/L Normal <=31 [facility] Comment on above: Order Comment: Order Date: 05/15/25Order Info: 0786-1 - CMPOrder Info: 3051-0 - N9WOokvy Info: 3015-3 - TSHOrder Info: 93295-2 - IBCOrder Info: 2276-02 - FEROrder Info: 8 - FOLSOrder Info: 302-7 - T4F Performed By: #### L 503.6030, L100.0100, L100.9950, L506.0400, L501.56369, L500.4050, L501.9520, L503.6550 ####[facility] [address] [place], [address] Bilirubin [Mass/Vol] 0.18 mg/dL Normal 0.00-1.30 [facility] Comment on above: Order Comment: Order Date: 05/15/25Order Info: 0786-1 - CMPOrder Info: 3051-0 - F7NYctpd Info: 3015-3 - TSHOrder Info: 04433-6 - IBCOrder Info: 2276-02 - FEROrder Info: 2284-06 - FOLSOrder Info: 3024-7 - T4F Performed By: #### L 503.6030, L100.0100, L100.9950, L506.0400, L501.38398, L500.4050, L501.9520, L503.6550 ####[facility] [address] [place], [address] BUN/CRE 22.7 RATIO High 10-20 [facility] Comment on above: Order Comment: Order Date: 05/15/25Order Info: 07-1 - CMPOrder Info: 0 - C3VQtzdg Info: 3 - TSHOrder Info: - IBCOrder Info: 2276-02 - FEROrder Info: 2284-06 - FOLSOrder Info: 7 - T4F Performed By: #### L 503.6030, L100.0100, L100.9950, L506.0400, L501.50214, L500.4050, L501.9520, L503.6550 ####[facility] [address] [place], [address] Calcium [Mass/Vol] 9.1 mg/dL Normal 7.6-11.[address] [facility] Comment on above: Order Comment: Order Date: 05/15/25Order Info: 0786-1 - CMPOrder Info: 0 - I1LBfchf Info: 3 - TSHOrder Info: - IBCOrder Info: 2276-02 - FEROrder Info: 2284-06 - FOLSOrder Info: 3027 - T4F Performed By: #### L 503.6030, L100.0100, L100.9950, L506.0400, L501.38068, L500.4050, L501.9520, L503.6550 ####[facility] [address] [place], [address] Chloride [Moles/Vol] 100 mmol/L Normal 98-108 [facility] Comment on above: Order Comment: Order Date: 05/15/25Order Info: 0786-1 - CMPOrder Info: 3051-0 - J1UBokft Info: 3016-3 - TSHOrder Info: 27050-9 - IBCOrder Info: 2275-4 - FEROrder Info: 8 - FOLSOrder Info: 3024-7 - T4F Performed By: #### L 503.6030, L100.0100, L100.9950, L506.0400, L501.81304, L500.4050, L501.9520, L503.6550 ####[facility] [address] [place], [place], [id number] CO2 [Moles/Vol] 25.0 mmol/L Normal 21.0-32.0 [facility] Comment on above: Order Comment: Order Date: 05/15/25Order Info: 0786-1 - CMPOrder Info: 3051-0 - Q4XWceex Info: 6-3 - TSHOrder Info: [id number] - IBCOrder Info: 2276-02 - FEROrder Info: 2284-06 - FOLSOrder Info: 3024-7 - T4F Performed By: #### L 503.6030, L100.0100, L100.9950, L506.0400, L501.37500, L500.4050, L501.9520, L503.6550 ####[facility] [address] [place], [place], [address] Creatinine [Mass/Vol] 1.13 mg/dL Normal 0.70-1.20 [facility] Comment on above: Order Comment: Order Date: 05/15/25Order Info: 0786-1 - CMPOrder Info: 3051-0 - B8JIenxl Info: 3016-3 - TSHOrder Info: [id number] - IBCOrder Info: 2275- - FEROrder Info: 8 - FOLSOrder Info: 3024-7 - T4F Performed By: #### L 503.6030, L100.0100, L100.9950, L506.0400, L501.10876, L500.4050, L501.9520, L503.6550 ####[facility] [address] [place], [address] GAP 11 Normal 5-15 [facility] Comment on above: Order Comment: Order Date: 05/15/25Order Info: 0786-1 - CMPOrder Info: 0 - D9IKfgwc Info: 3016-01 - TSHOrder Info: 31902-2 - IBCOrder Info: 2276-02 - FEROrder Info: 2284-06 - FOLSOrder Info: 3024-05 - T4F Performed By: #### L 503.6030, L100.0100, L100.9950, L506.0400, L501.75899, L500.4050, L501.9520, L503.6550 ####[facility] [address] [place], [place], [phone] GFR/1.73 sq M.predicted among non-blacks MDRD (S/P/Bld) [Vol rate/Area] 52 mL/min/{1.73_m2} Low >60 [facility] Comment on above: Order Comment: Order Date: 05/15/25Order Info: 0786-1 - CMPOrder Info: 0 - C8TDtfah Info: 3016-01 - TSHOrder Info: 42542-4 - IBCOrder Info: 2276-02 - FEROrder Info: 2284-06 - FOLSOrder Info: 3024-05 - T4F Result Comment: mL/m in/1.73m2 CKD-EPI Creatinine Equation (2020) Performed By: #### L 503.6030, L100.0100, L100.9950, L506.0400, L501.49650, L500.4050, L501.9520, L503.6550 ####[facility] [address] [place], [place], [address]([phone] Globulin (S) [Mass/Vol] 2.3 g/dL Normal 2.2-4.2 [facility] Comment on above: Order Comment: Order Date: 05/15/25Order Info: 0786-1 - CMPOrder Info: 3051-0 - A6DHjkgm Info: 3016-3 - TSHOrder Info: 38126-0 - IBCOrder Info: 2275-4 - FEROrder Info: 2284-06 - FOLSOrder Info: 3024-7 - T4F Performed By: #### L 503.6030, L100.0100, L100.9950, L506.0400, L501.70997, L500.4050, L501.9520, L503.6550 ####[facility] [address] [place], [place], [address] Glucose [Mass/Vol] 105 mg/dL High 70-[address] [facility] Comment on above: Order Comment: Order Date: 05/15/25Order Info: 07 - CMPOrder Info: 0 - N3WIpjgk Info: 3 - TSHOrder Info: 58722-9 - IBCOrder Info: 2276-02 - FEROrder Info: 2284-06 - FOLSOrder Info: 3023-7 - T4F Performed By: #### L 503.6030, L100.0100, L100.9950, L506.0400, L501.62769, L500.4050, L501.9520, L503.6550 ####[facility] [address] [place], [place], [address] Potassium [Moles/Vol] 4.5 mmol/L Normal 3.3-5.1 [facility] Comment on above: Order Comment: Order Date: 05/15/25Order Info: 07-1 - CMPOrder Info: 1-0 - H6ZCjfxo Info: 63 - TSHOrder Info: 49723-6 - IBCOrder Info: 2276-02 - FEROrder Info: 2284-06 - FOLSOrder Info: 3024-7 - T4F Performed By: #### L 503.6030, L100.0100, L100.9950, L506.0400, L501.23634, L500.4050, L501.9520, L503.6550 ####[facility] [address] [place], [address] Sodium [Moles/Vol] 136 mmol/L Normal 133-[address] [facility] Comment on above: Order Comment: Order Date: 05/15/25Order Info: 0786-1 - CMPOrder Info: 0 - K0HHpvip Info: 3 - TSHOrder Info: [id number] - IBCOrder Info: 2276-02 - FEROrder Info: 2284-06 - FOLSOrder Info: 3023-7 - T4F Performed By: #### L 503.6030, L100.0100, L100.9950, L506.0400, L501.41314, L500.4050, L501.9520, L503.6550 ####[facility] [address] [place], [address] T PROT 6.2 g/dL Normal 5.9-8.4 [facility] Comment on above: Order Comment: Order Date: 05/15/25Order Info: 0786-1 - CMPOrder Info: 0 - I0EFmxmm Info: 3 - TSHOrder Info: [id number] - IBCOrder Info: 2276-02 - FEROrder Info: 2284-06 - FOLSOrder Info: 3023-7 - T4F Performed By: #### L 503.6030, L100.0100, L100.9950, L506.0400, L501.04280, L500.4050, L501.9520, L503.6550 ####[facility] [address] [place], [address] Urea nitrogen [Mass/Vol] 26 mg/dL High 4-19 [facility] Comment on above: Order Comment: Order Date: 05/15/25Order Info: 0786-1 - CMPOrder Info: 0 - T2GYhodt Info: 3 - TSHOrder Info: [id number] - IBCOrder Info: 2276-02 - FEROrder Info: 2284-06 - FOLSOrder Info: 3024-05 - T4F Performed By: #### L 503.6030, L100.0100, L100.9950, L506.0400, L501.28179, L500.4050, L501.9520, L503.6550 ####[facility] [address] [place], [place], [id number] Eosinophil percentageOrdered By: Daron Benton on 05-15-2025 Eosinophils/100 WBC (Bld) 9.3 % High 0-5 [facility] Erythrocyte distribution wid th ratioOrdered By: Daron Benton on 05-15-2025 Erythrocyte distribution width (RBC) [Ratio] 19.3 % High 11.6-14.6 [facility] Erythrocyte distribution wid th standard deviationOrdered By: Daron Benton on 05-15-2025 Erythrocyte distribution width (RBC) [Ratio] 61.2 fl High 35.1-43.9 [facility] Ferritinon 05-15-2025 Ferritin [Mass/Vol] 19 ng/mL Low 22-378 [facility] Comment on above: Order Comment: Order Date: 05/15/25Order Info: 0786-1 - CMPOrder Info: 0 - J5OFnhpj Info: 3 - TSHOrder Info: [id number] - IBCOrder Info: 2276-02 - FEROrder Info: 2284-06 - FOLSOrder Info: 3024-05 - T4F Performed By: #### L 503.6030, L100.0100, L100.9950, L506.0400, L501.10725, L500.4050, L501.9520, L503.6550 ####[facility] [address] [place], [place], [phone] Folate [Moles/volume] in Ser um or PlasmaOrdered By: Daron Benton on 05-15-2025 Folate [Moles/Vol] 8.24 ng/mL 4.60-34.[address] [facility] Folates,Serum (Folic Acid)on 05-15-2025 FOLATES,SERUM 8.24 ng/mL Normal 4.60-34.80 [facility] Comment on above: Order Comment: N Performed By: #### L 503.0106, L3300.6750, L506.0200 ####[facility] [address] [place], [place], [phone] Free T3on 05-15-2025 Free T3 [Mass/Vol] 2.7 pg/mL Normal 2.18-3.[address] [facility] Comment on above: Order Comment: Order Date: 05/15/25Order Info: 0786-1 - CMPOrder Info: 3051-0 - M9GGrjop Info: 3016-3 - TSHOrder Info: 01652-1 - IBCOrder Info: 2276-4 - FEROrder Info: 2284-8 - FOLSOrder Info: 3024-7 - T4F Performed By: #### L 503.6030, L100.0100, L100.9950, L506.0400, L501.07413, L500.4050, L501.9520, L503.6550 ####[facility] [address] [place], [place], [phone] Free O3Yzbskel By: Daron swanson on 05-15-2025 Free T3 [Mass/Vol] 2.7 pg/mL 2.18-3.[address] [facility] Glomerular filtration rate ( GFR) estimation/1.73 sq m using serum, plasma, or whole bOrdered By: Daron Benton on 05-15-2025 GFR/1.73 sq M.predicted among non-blacks MDRD (S/P/Bld) [Vol rate/Area] 52 mL/min/{1.73_m2} Low >60 [facility] Hematocrit Auto (Bld) [Volum e fraction]Ordered By: Daron Benton on 05-15-2025 Hematocrit (Bld) [Volume fraction] 24.4 % Low 37-47 [facility] Hemoglobin measurementOrdere d By: Daron Benton on 05-15-2025 Hemoglobin (Bld) [Mass/Vol] 7.4 g/dL Low 12.0-15.0 [facility] Hypochromatic red blood cell detectionOrdered By: Daron Benton on 05-15-2025 Hypochromia Ql (Bld) 1+ [facility] Immature granulocytes/100 WB C Auto (Bld)Ordered By: Daron Benton on 05-15-2025 Immature granulocytes/100 WBC (Bld) 0.600 % 0.0-0.9 [facility] Iron measurement (mass/mass) Ordered By: Daron Benton on 05-15-2025 Iron (Unsp spec) [Mass/Mass] 48 ug/dL Low 50-170 [facility] Iron+Iron Binding Capacityon 05-15-2025 Iron [Mass/Vol] 48 ug/dL Low 50-170 [facility] Comment on above: Order Comment: Order Date: 05/15/25Order Info: 0786-1 - CMPOrder Info: 3050 - Q0JCmkkl Info: 3 - TSHOrder Info: [id number] - IBCOrder Info: 2276-02 - FEROrder Info: 2284-06 - FOLSOrder Info: 7 - T4F Performed By: #### L 503.6030, L100.0100, L100.9950, L506.0400, L501.19559, L500.4050, L501.9520, L503.6550 ####[facility] [address] [place], [place], [phone] IRON SATURATION 13.0 Normal 13-59 [facility] Comment on above: Order Comment: Order Date: 05/15/25Order Info: 0786-1 - CMPOrder Info: 3051-0 - Z9HPtrgw Info: 3015-3 - TSHOrder Info: 34952-1 - IBCOrder Info: 2276-02 - FEROrder Info: 8 - FOLSOrder Info: 3024-7 - T4F Performed By: #### L 503.6030, L100.0100, L100.9950, L506.0400, L501.69380, L500.4050, L501.9520, L503.6550 ####[facility] [address] [place], [address] TIBC 379 ug/dL Normal 250-450 [facility] Comment on above: Order Comment: Order Date: 05/15/25Order Info: 0786-1 - CMPOrder Info: 3051-0 - Z8NZhlct Info: 3015-3 - TSHOrder Info: - IBCOrder Info: 2276-02 - FEROrder Info: 2284-06 - FOLSOrder Info: 3024-7 - T4F Performed By: #### L 503.6030, L100.0100, L100.9950, L506.0400, L501.69218, L500.4050, L501.9520, L503.6550 ####[facility] [address] [place], [address] UIBC 331 ug/dL Normal 228-428 [facility] Comment on above: Order Comment: Order Date: 05/15/25Order Info: 071 - CMPOrder Info: 3050-0 - C2ZQlagl Info: 3 - TSHOrder Info: - IBCOrder Info: 2276-02 - FEROrder Info: 2284-06 - FOLSOrder Info: 3024-7 - T4F Performed By: #### L 503.6030, L100.0100, L100.9950, L506.0400, L501.23558, L500.4050, L501.9520, L503.6550 ####[facility] [address] [place], [address] MCV (mean corpuscular volume ) determinationOrdered By: Daron Benton on 05-15-2025 MCV (RBC) [Entitic vol] 87.5 fL 81-99 [facility] Mean corpuscular hemoglobin (MCH) determinationOrdered By: Daron Benton on 05-15-2025 MCH (RBC) [Entitic mass] 26.5 pg Low 27.0-32.0 [facility] Monocyte percentageOrdered B y: Daron Benton on 05-15-2025 Monocytes/100 WBC (Bld) 5.9 % 0-10 [facility] Neutrophil percentageOrdered By: Daron Benton on 05-15-2025 Neutrophils/100 WBC (Bld) 70.4 % High 47-70 [facility] No Panel InformationOrdered By: Daronchandler Benton on 05-15-2025 1+ [facility] 23 U/L <32 [facility] 331 ug/dL 228-428 [facility] Platelet countOrdered By: Sarah Benton on 05-15-2025 Platelets (Bld) [#/Vol] 213 10*3/uL 150-450 [facility] Platelet estimateOrdered By: Daron Benton on 05-15-2025 Platelets LM Ql (Bld) ADEQUATE ADEQ [facility] Potassium measurement (mass/ volume)Ordered By: Daron Benton on 05-15-2025 Potassium (Unsp spec) [Mass/Vol] 4.5 mmol/L 3.3-5.1 [facility] RBC Auto (Bld) [#/Vol]Ordere d By: Daron Benton on 05-15-2025 RBC (Bld) [#/Vol] 2.79 10*6/uL Low 4.2-5.4 [facility] Retic Panelon 05-15-2025 IM RET FRACTION 25.70 High 3.00-15.90 [facility] Comment on above: Order Comment: Order Date: 05/15/25Order Info: 0184-1 - CBCDOrder Info: 4679-7 - RETIC Performed By: #### L 503.6030, L100.0100, L100.9950, L506.0400, L501.29578, L500.4050, L501.9520, L503.6550 ####[facility] [address] [place], [address] RET-HE 25.2 pg Low 30-35 [facility] Comment on above: Order Comment: Order Date: 05/15/25Order Info: 0184-1 - CBCDOrder Info: 4679-7 - RETIC Performed By: #### L 503.6030, L100.0100, L100.9950, L506.0400, L501.65376, L500.4050, L501.9520, L503.6550 ####[facility] [address] [place], [place], [phone] Retic Count 4.47 High 0.5-1.5 [facility] Comment on above: Order Comment: Order Date: 05/15/25Order Info: 0184-1 - CBCDOrder Info: 4679-7 - RETIC Performed By: #### L 503.6030, L100.0100, L100.9950, L506.0400, L501.25878, L500.4050, L501.9520, L503.6550 ####[facility] [address] [place], [place], [id number] Reticulocyte hemoglobin equi valent (RET-He) measurementOrdered By: Daron Benton on 05-15-2025 Hemoglobin (Reticulocytes) [Entitic mass] 25.2 pg Low 30-35 [facility] Reticulocytes Auto (Bld) [#/ Vol]Ordered By: Daron Benton on 05-15-2025 Reticulocytes/100 RBC (Bld) 4.47 % High 0.5-1.5 [facility] Serum creatinine measurement (mass/volume)Ordered By: Daron Benton on 05-15-2025 Creatinine [Mass/Vol] 1.13 mg/dL 0.70-1.20 [facility] Serum globulin measurementOr dered By: Daron Benton on 05-15-2025 Globulin (S) [Mass/Vol] 2.3 g/dL 2.2-4.2 [facility] Serum glucose measurement (m ass/volume)Ordered By: Daron Benton on 05-15-2025 Glucose [Mass/Vol] 105 mg/dL High 70-[address] [facility] Serum or plasma alanine pizarro otransferase (ALT) measurementOrdered By: Daron Benton on 05-15-2025 ALT [Catalytic activity/Vol] 14 U/L <35 [facility] Serum or plasma albumin stefania urement (mass/volume)Ordered By: Daron Benton on 05-15-2025 Albumin [Mass/Vol] 3.9 g/dL 3.4-4.[address] [facility] Serum or plasma albumin/glob ulin mass ratioOrdered By: Daron Benton on 05-15-2025 Albumin/Globulin [Mass ratio] 1.7 {ratio} 0.9-2.4 [facility] Serum or plasma alkaline anthony sphatase measurementOrdered By: Daron Benton on 05-15-2025 ALP [Catalytic activity/Vol] 102 U/L 35-104 [facility] Serum or plasma calcium stefania urement (mass/volume)Ordered By: Daron Benton on 05-15-2025 Calcium [Mass/Vol] 9.1 mg/dL 7.6-11.[address] [facility] Serum or plasma ferritin felicia surement (mass/volume)Ordered By: Daron Benton on 05-15-2025 Ferritin [Mass/Vol] 19 ng/mL Low 22-378 [facility] Serum or plasma iron saturat ion measurement (mass fraction)Ordered By: Daron Benton on 05-15-2025 Iron saturation [Mass fraction] 13.0 % 13-59 [facility] Serum or plasma thyroperoxid ase antibody assay (units/volume)Ordered By: Daron Benton on 05-15-2025 TPO Ab Qn [IU]/mL 0-34 [facility] Serum or plasma urea nitroge n measurement (mass/volume)Ordered By: Daron Benton on 05-15-2025 Urea nitrogen [Mass/Vol] 26 mg/dL High 4-19 [facility] Sodium levelOrdered By: Daron Benton on 05-15-2025 Sodium [Moles/Vol] 136 mmol/L 133-[address] [facility] T4 Free Directon 05-15-2025 T4 FREE DIRECT 1.50 ng/dL High 0.76-1.46 [facility] Comment on above: Order Comment: Order Date: 05/15/25Order Info: 0786-1 - CMPOrder Info: 3051-0 - F3XCxudx Info: 3016-3 - TSHOrder Info: [id number] - IBCOrder Info: 2276-4 - FEROrder Info: 2284-8 - FOLSOrder Info: 3024-7 - T4F Performed By: #### L 503.6030, L100.0100, L100.9950, L506.0400, L501.43656, L500.4050, L501.9520, L503.6550 ####[facility] [address] [place], [place], [id number] T4 freeOrdered By: Daron swanson on 05-15-2025 Free T4 [Mass/Vol] 1.50 ng/dL High 0.76-1.[address] [facility] TSH DL <= 0.005 mIU/L QnOrde red By: Daron Benton on 05-15-2025 TSH Qn 1.680 uIU/mL 0.300-4.20 0 [facility] Thyroid Stim Hormone (TSH)on 05-15-2025 TSH 1.680 uIU/mL Normal 0.300-4.20 0 [facility] Comment on above: Order Comment: Order Date: 05/15/25Order Info: 0786-1 - CMPOrder Info: 3051-0 - F7HKjmas Info: 3016-3 - TSHOrder Info: [id number] - IBCOrder Info: 2276-4 - FEROrder Info: 2284-8 - FOLSOrder Info: 3024-7 - T4F Performed By: #### L 503.6030, L100.0100, L100.9950, L506.0400, L501.82558, L500.4050, L501.9520, L503.6550 ####[facility] [address] [place], [place], [id number] Total proteinOrdered By: Nila Benton on 05-15-2025 Protein [Mass/Vol] 6.2 g/dL 5.9-8.[address] [facility] Vitamin B12on 05-15-2025 Cobalamin (Vitamin B12) [Mass/Vol] 366 pg/mL Normal 180-914 [facility] Comment on above: Order Comment: Order Date: 05/15/25Order Info: 0786-1 - CMPOrder Info: 3051-0 - Q8JDxyxe Info: [id number] - TSHOrder Info: [id number] - IBCOrder Info: [id number] - FEROrder Info: [id number] - FOLSOrder Info: [id number] - T4F Performed By: #### L [id number], [id number], L506.0200 ####[facility] [id number] [place], [address] Vitamin B12 ser/plasOrdered By: Daron Benton on 05-15-2025 Cobalamin (Vitamin B12) [Mass/Vol] 366 pg/mL 180-914 [facility] White blood cell (WBC) count Ordered By: Daron Benton on 05-15-2025 WBC (Bld) [#/Vol] 8.4 10*3/uL 4.4-11.[address] [facility] 36on 05-06-2025 36 Faxed New Auth to [facility] [place] @ [phone], Valid 05/06/25 Thru 07/05/25 Brain MRI wo Contrast. Normal [facility] Gastroenterology Visit Repor ton 05-06-2025 Gastroenterology Visit Report Normal [facility] 36on 05-05-2025 36 [facility] phone number: [phone] Relationship to Patient: Imaging Provider: Robert Practice: neuro Chief Complaint/Reason for Call: Viki states patients prior auth is expiring and will need a new one for patient schedule MRI on 05/20 @130 fax # [phone]. [facility] 36on 04-24-2025 36 Baclofen 20mg sent t o [facility] in [place]. [facility] 36 Name of caller: Parvez santos Contact phone number: [phone] Relationship to Patient: patient Provider: AURORA Lynn Practice: Neurology Chief Complaint/Reason for Call: Angélica advised that she just got out of the hospital, and she needs her Baclofen script sent in to her [facility] [address] [place] [address], [place] - [address] [[id number]]. She does not use the [facility] any longer, and she is completely out. Best time of day caller can be reached: any Patient advised that office/PCP has 24-48 business hours to return their call: Yes Normal [facility] Anion gap in Serum or Plasma Ordered By: Roman Mckeon on 04-22-2025 Anion gap [Moles/Vol] 12 mmol/L 5-15 [facility] BUN/creatinine ratioOrdered By: Roman Mckeon on 04-22-2025 Urea nitrogen/Creatinine [Mass ratio] 7.0 mg/mg Low 10-20 [facility] Basic Metabolic Profile (BMP )on 04-22-2025 BUN/CRE 7.0 RATIO Low 10-20 [facility] Comment on above: Performed By: #### L 500.2500, L100.0500 ####[facility] [address] [place], [address] Calcium [Mass/Vol] 8.3 mg/dL Normal 7.6-11.[address] [facility] Comment on above: Performed By: #### L 500.2500, L100.0500 ####[facility] [address] [place], [address] Chloride [Moles/Vol] 107 mmol/L Normal 98-108 [facility] Comment on above: Performed By: #### L 500.2500, L100.0500 ####[facility] [address] [place], [address] CO2 [Moles/Vol] 18.8 mmol/L Low 21.0-32.0 [facility] Comment on above: Performed By: #### L 500.2500, L100.0500 ####[facility] [address] [place], [address] Creatinine [Mass/Vol] 1.08 mg/dL Normal 0.70-1.20 [facility] Comment on above: Performed By: #### L 500.2500, L100.0500 ####[facility] [address] [place], [address] ECRCL 34.97 ml/min Low 50-250 [facility] Comment on above: Performed By: #### L 500.2500, L100.0500 ####[facility] [address] [place], [address] GAP 12 Normal 5-15 [facility] Comment on above: Performed By: #### L 500.2500, L100.0500 ####[facility] [address] [place], [address] GFR/1.73 sq M.predicted among non-blacks MDRD (S/P/Bld) [Vol rate/Area] 55 mL/min/{1.73_m2} Low >60 [facility] Comment on above: Result Comment: mL/m in/1.73m2 CKD-EPI Creatinine Equation (2020) Performed By: #### L 500.2500, L100.0500 ####[facility] [address] [place], [address] Glucose [Mass/Vol] 89 mg/dL Normal 70-[address] [facility] Comment on above: Performed By: #### L 500.2500, L100.0500 ####[facility] [address] [place], [address] Potassium [Moles/Vol] 3.8 mmol/L Normal 3.3-5.1 [facility] Comment on above: Performed By: #### L 500.2500, L100.0500 ####[facility] [address] [place], [address] Sodium [Moles/Vol] 137 mmol/L Normal 133-[address] [facility] Comment on above: Performed By: #### L 500.2500, L100.0500 ####[facility] [address] [place], [address] Urea nitrogen [Mass/Vol] 8 mg/dL Normal 4-19 [facility] Comment on above: Performed By: #### L 500.2500, L100.0500 ####[facility] [address] [place], [address] CBC-Complete Blood Cnt No Di ffon 04-22-2025 Erythrocyte distribution width (RBC) [Ratio] 17.5 % High 11.6-14.6 [facility] Comment on above: Performed By: #### L 500.2500, L100.0500 ####[facility] [address] [place], [address] Hematocrit (Bld) [Volume fraction] 29.2 % Low 37-47 [facility] Comment on above: Performed By: #### L 500.2500, L100.0500 ####[facility] [address] [place], [address] Hemoglobin (Bld) [Mass/Vol] 9.4 g/dL Low 12.0-15.0 [facility] Comment on above: Performed By: #### L 500.2500, L100.0500 ####[facility] [address] [place], [address] MCH (RBC) [Entitic mass] 26.8 pg Low 27.0-32.0 [facility] Comment on above: Performed By: #### L 500.2500, L100.0500 ####[facility] [address] [place], [address] MCHC (RBC) [Mass/Vol] 32.2 g/dL Normal 32-36 [facility] Comment on above: Performed By: #### L 500.2500, L100.0500 ####[facility] [address], [address] MCV (RBC) [Entitic vol] 83.2 fL Normal 81-99 [facility] Comment on above: Performed By: #### L 500.2500, L100.0500 ####[facility] [address], [address] Platelet mean volume (Bld) [Entitic vol] 9.7 fL Normal 6.2-12.0 [facility] Comment on above: Performed By: #### L 500.2500, L100.0500 ####[facility] [address] [place], [address] Platelets (Bld) [#/Vol] 152 10*3/uL Normal 150-450 [facility] Comment on above: Performed By: #### L 500.2500, L100.0500 ####[facility] [address] [place], [address] RBC (Bld) [#/Vol] 3.51 10*6/uL Low 4.2-5.4 [facility] Comment on above: Performed By: #### L 500.2500, L100.0500 ####[facility] [address] [place], [address] RDW SD 52.6 fl High 35.1-43.9 [facility] Comment on above: Performed By: #### L 500.2500, L100.0500 ####[facility] [address] [place], [address] WBC (Bld) [#/Vol] 7.1 10*3/uL Normal 4.4-11.[address] [facility] Comment on above: Performed By: #### L 500.2500, L100.0500 ####[facility] [address] [place], [address] Carbon dioxide, total [Moles /volume] in Central venous bloodOrdered By: Roman Mckeon on 04-22-2025 CO2 [Moles/Vol] 18.8 mmol/L Low 21.0-32.0 [facility] Chloride assayOrdered By: Edgar Mckeon on 04-22-2025 Chloride [Moles/Vol] 107 mmol/L 98-108 [facility] Colonoscopy Reporton 025 Colonoscopy Report Normal [facility] Erythrocyte distribution wid th ratioOrdered By: Roman Mckeon on 04-22-2025 Erythrocyte distribution width (RBC) [Ratio] 17.5 % High 11.6-14.6 [facility] Erythrocyte distribution wid th standard deviationOrdered By: Roman Mckeon on 04-22-2025 Erythrocyte distribution width (RBC) [Ratio] 52.6 fl High 35.1-43.9 [facility] Glomerular filtration rate ( GFR) estimation/1.73 sq m using serum, plasma, or whole bOrdered By: Roman Mckeon on 04-22-2025 GFR/1.73 sq M.predicted among non-blacks MDRD (S/P/Bld) [Vol rate/Area] 55 mL/min/{1.73_m2} Low >60 [facility] Hematocrit Auto (Bld) [Volum e fraction]Ordered By: Roman Mckeon on 04-22-2025 Hematocrit (Bld) [Volume fraction] 29.2 % Low 37-47 [facility] Hemoglobin measurementOrdere d By: Roman Mckeon on 04-22-2025 Hemoglobin (Bld) [Mass/Vol] 9.4 g/dL Low 12.0-15.0 [facility] MCV (mean corpuscular volume ) determinationOrdered By: Roman Mckeon on 04-22-2025 MCV (RBC) [Entitic vol] 83.2 fL 81-99 [facility] MR/POSTOP.ANEon 04-22-2025 MR/POSTOP.ANE Normal [facility] Mean corpuscular hemoglobin (MCH) determinationOrdered By: Roman Mckeon on 04-22-2025 MCH (RBC) [Entitic mass] 26.8 pg Low 27.0-32.0 [facility] Platelet countOrdered By: Edgar Mckeon on 04-22-2025 Platelets (Bld) [#/Vol] 152 10*3/uL 150-450 [facility] Potassium measurement (mass/ volume)Ordered By: Roman Mckeon on 04-22-2025 Potassium (Unsp spec) [Mass/Vol] 3.8 mmol/L 3.3-5.1 [facility] RBC Auto (Bld) [#/Vol]Ordere d By: Roman Mckeon on 04-22-2025 RBC (Bld) [#/Vol] 3.51 10*6/uL Low 4.2-5.4 [facility] Serum creatinine measurement (mass/volume)Ordered By: Roman Mckeon on 04-22-2025 Creatinine [Mass/Vol] 1.08 mg/dL 0.70-1.20 [facility] Serum glucose measurement (m ass/volume)Ordered By: Roman Mckeon on 04-22-2025 Glucose [Mass/Vol] 89 mg/dL 70-[address] [facility] Serum or plasma calcium stefania urement (mass/volume)Ordered By: Roman Mckeon on 04-22-2025 Calcium [Mass/Vol] 8.3 mg/dL 7.6-11.[address] [facility] Serum or plasma urea nitroge n measurement (mass/volume)Ordered By: Roman Mckeon on 04-22-2025 Urea nitrogen [Mass/Vol] 8 mg/dL 4-19 [facility] Sodium levelOrdered By: Domingo Mckeon on 04-22-2025 Sodium [Moles/Vol] 137 mmol/L 133-[address] [facility] Surgery Specimen Level Willi 04-22-2025 Surgery Specimen Level IV Normal [facility] Comment on above: Performed By: #### P SUIV ####[facility] [address] [place], [place], [phone] White blood cell (WBC) count Ordered By: Roman Mckeon on 04-22-2025 WBC (Bld) [#/Vol] 7.1 10*3/uL 4.4-11.[address] [facility] Basic Metabolic Profile (BMP )on 04-21-2025 BUN/CRE 9.9 RATIO Low 10-20 [facility] Comment on above: Performed By: #### L 100.0500, L500.2500 ####[facility] [address] [facility] [place], [place], [phone] Calcium [Mass/Vol] 8.7 mg/dL Normal 7.6-11.[address] [facility] Comment on above: Performed By: #### L 100.0500, L500.2500 ####[facility] [address] [place], [address] Chloride [Moles/Vol] 107 mmol/L Normal 98-108 [facility] Comment on above: Performed By: #### L 100.0500, L500.2500 ####[facility] [address] [place], [address] CO2 [Moles/Vol] 24.7 mmol/L Normal 21.0-32.0 [facility] Comment on above: Performed By: #### L 100.0500, L500.2500 ####[facility] [address] [place], [address] Creatinine [Mass/Vol] 1.21 mg/dL High 0.70-1.20 [facility] Comment on above: Performed By: #### L 100.0500, L500.2500 ####[facility] [address] [place], [address] ECRCL 31.21 ml/min Low 50-250 [facility] Comment on above: Performed By: #### L 100.0500, L500.2500 ####[facility] [address] [place], [address] GAP 9 Normal 5-15 [facility] Comment on above: Performed By: #### L 100.0500, L500.2500 ####[facility] [address] [place], [address] GFR/1.73 sq M.predicted among non-blacks MDRD (S/P/Bld) [Vol rate/Area] 48 mL/min/{1.73_m2} Low >60 [facility] Comment on above: Result Comment: mL/m in/1.73m2 CKD-EPI Creatinine Equation (2020) Performed By: #### L 100.0500, L500.2500 ####[facility] [address] [place], [address] Glucose [Mass/Vol] 85 mg/dL Normal 70-[address] [facility] Comment on above: Performed By: #### L 100.0500, L500.2500 ####[facility] [address] [place], [address] Potassium [Moles/Vol] 3.1 mmol/L Low 3.3-5.1 [facility] Comment on above: Performed By: #### L 100.0500, L500.2500 ####[facility] [address] [place], [address] Sodium [Moles/Vol] 141 mmol/L Normal 133-[address] [facility] Comment on above: Performed By: #### L 100.0500, L500.2500 ####[facility] [address] [place], [address] Urea nitrogen [Mass/Vol] 12 mg/dL Normal 4-19 [facility] Comment on above: Performed By: #### L 100.0500, L500.2500 ####[facility] [address] [place], [address] Bedside Glucoseon 04-21-2025 FINGERSTICK GLU 109 mg/dL High 74-106 [facility] Comment on above: Result Comment: YONY HARTMANN OF PATIENT CARE PER NURSING PROTOCOL Performed By: #### L 501.080 ####[facility] [address] [place], [address] Brain/Head without Contrasto n 04-21-2025 Brain/Head without Contrast Normal [facility] CBC-Complete Blood Cnt No Di ffon 04-21-2025 Erythrocyte distribution width (RBC) [Ratio] 17.2 % High 11.6-14.6 [facility] Comment on above: Performed By: #### L 100.0500, L500.2500 ####[facility] [address] [place], [address] Hematocrit (Bld) [Volume fraction] 31.7 % Low 37-47 [facility] Comment on above: Performed By: #### L 100.0500, L500.2500 ####[facility] [address] [place], [address] Hemoglobin (Bld) [Mass/Vol] 10.1 g/dL Low 12.0-15.0 [facility] Comment on above: Performed By: #### L 100.0500, L500.2500 ####[facility] [address] [place], [address] MCH (RBC) [Entitic mass] 26.5 pg Low 27.0-32.0 [facility] Comment on above: Performed By: #### L 100.0500, L500.2500 ####[facility] [address] [place], [address] MCHC (RBC) [Mass/Vol] 31.9 g/dL Low 32-36 [facility] Comment on above: Performed By: #### L 100.0500, L500.2500 ####[facility] [address] [place], [address] MCV (RBC) [Entitic vol] 83.2 fL Normal 81-99 [facility] Comment on above: Performed By: #### L 100.0500, L500.2500 ####[facility] [address] [place], [address] Platelet mean volume (Bld) [Entitic vol] 9.4 fL Normal 6.2-12.0 [facility] Comment on above: Performed By: #### L 100.0500, L500.2500 ####[facility] [address] [place], [address] Platelets (Bld) [#/Vol] 174 10*3/uL Normal 150-450 [facility] Comment on above: Performed By: #### L 100.0500, L500.2500 ####[facility] [address] [place], [address] RBC (Bld) [#/Vol] 3.81 10*6/uL Low 4.2-5.4 [facility] Comment on above: Performed By: #### L 100.0500, L500.2500 ####[facility] [address] [place], [address] RDW SD 51.9 fl High 35.1-43.9 [facility] Comment on above: Performed By: #### L 100.0500, L500.2500 ####[facility] [address] [place], [address] WBC (Bld) [#/Vol] 5.3 10*3/uL Normal 4.4-11.[address] [facility] Comment on above: Performed By: #### L 100.0500, L500.2500 ####[facility] [address] [place], [address] EGD Reporton 04-21-2025 EGD Report Normal [facility] deOrdered By: Roman Mckeon on 04-21-2025 Glucose [Mass/Vol] 109 mg/dL High 74-[address] [facility] MR/POSTOP.ANEon 04-21-2025 MR/POSTOP.ANE Normal [facility] MR/[id number] 04-21-2025 MR/POSTOPAN2 Normal [facility] Stool Occult Blood iFOBon STOB Positive Normal [facility] Comment on above: Performed By: #### M 100.7900 ####[facility] [address] [place], [address] Stool gastrointestinal hemog lobin detection by immunologic methodOrdered By: Sachin Murillo on 04-21-2025 Lower GI hemoglobin IA Ql (Stl) Positive Abnormal [facility] Basic Metabolic Profile (BMP )on 04-20-2025 BUN/CRE 13.9 RATIO Normal 10-20 [facility] Comment on above: Performed By: #### L 501.2300, L500.2500, L100.0500, L501.5200, L501.9520 ####[facility] [address], [address] Calcium [Mass/Vol] 8.8 mg/dL Normal 7.6-11.[address] [facility] Comment on above: Performed By: #### L 501.2300, L500.2500, L100.0500, L501.5200, L501.9520 ####[facility] [address], [address] Chloride [Moles/Vol] 106 mmol/L Normal 98-108 [facility] Comment on above: Performed By: #### L 501.2300, L500.2500, L100.0500, L501.5200, L501.9520 ####[facility] [address], [address] CO2 [Moles/Vol] 22.5 mmol/L Normal 21.0-32.0 [facility] Comment on above: Performed By: #### L 501.2300, L500.2500, L100.0500, L501.5200, L501.9520 ####[facility] [address], [address] Creatinine [Mass/Vol] 1.23 mg/dL High 0.70-1.20 [facility] Comment on above: Performed By: #### L 501.2300, L500.2500, L100.0500, L501.5200, L501.9520 ####[facility] [address], [address] ECRCL 30.70 ml/min Low 50-250 [facility] Comment on above: Performed By: #### L 501.2300, L500.2500, L100.0500, L501.5200, L501.9520 ####[facility] [address] [place], [address] GAP 12 Normal 5-15 [facility] Comment on above: Performed By: #### L 501.2300, L500.2500, L100.0500, L501.5200, L501.9520 ####[facility] [address] [place], [address] GFR/1.73 sq M.predicted among non-blacks MDRD (S/P/Bld) [Vol rate/Area] 47 mL/min/{1.73_m2} Low >60 [facility] Comment on above: Result Comment: mL/m in/1.73m2 CKD-EPI Creatinine Equation (2020) Performed By: #### L 501.2300, L500.2500, L100.0500, L501.5200, L501.9520 ####[facility] [address] [place], [address] Glucose [Mass/Vol] 75 mg/dL Normal 70-[address] [facility] Comment on above: Performed By: #### L 501.2300, L500.2500, L100.0500, L501.5200, L501.9520 ####[facility] [address] [place], [address] Potassium [Moles/Vol] 3.4 mmol/L Normal 3.3-5.1 [facility] Comment on above: Performed By: #### L 501.2300, L500.2500, L100.0500, L501.5200, L501.9520 ####[facility] [address] [place], [address] Sodium [Moles/Vol] 140 mmol/L Normal 133-[address] [facility] Comment on above: Performed By: #### L 501.2300, L500.2500, L100.0500, L501.5200, L501.9520 ####[facility] [address] [place], [address] Urea nitrogen [Mass/Vol] 17 mg/dL Normal 4-19 [facility] Comment on above: Performed By: #### L 501.2300, L500.2500, L100.0500, L501.5200, L501.9520 ####[facility] [address] [place], [address] CBC-Complete Blood Cnt No Di ffon 04-20-2025 Erythrocyte distribution width (RBC) [Ratio] 16.9 % High 11.6-14.6 [facility] Comment on above: Performed By: #### L 501.2300, L500.2500, L100.0500, L501.5200, L501.9520 ####[facility] [address] [place], [address] Hematocrit (Bld) [Volume fraction] 33.7 % Low 37-47 [facility] Comment on above: Performed By: #### L 501.2300, L500.2500, L100.0500, L501.5200, L501.9520 ####[facility] [address] [place], [address] Hemoglobin (Bld) [Mass/Vol] 10.6 g/dL Low 12.0-15.0 [facility] Comment on above: Performed By: #### L 501.2300, L500.2500, L100.0500, L501.5200, L501.9520 ####[facility] [address] [place], [address] MCH (RBC) [Entitic mass] 26.6 pg Low 27.0-32.0 [facility] Comment on above: Performed By: #### L 501.2300, L500.2500, L100.0500, L501.5200, L501.9520 ####[facility] [address] [place], [address] MCHC (RBC) [Mass/Vol] 31.5 g/dL Low 32-36 [facility] Comment on above: Performed By: #### L 501.2300, L500.2500, L100.0500, L501.5200, L501.9520 ####[facility] [address] [place], [address] MCV (RBC) [Entitic vol] 84.5 fL Normal 81-99 [facility] Comment on above: Performed By: #### L 501.2300, L500.2500, L100.0500, L501.5200, L501.9520 ####[facility] [address] [place], [address] Platelet mean volume (Bld) [Entitic vol] 9.9 fL Normal 6.2-12.0 [facility] Comment on above: Performed By: #### L 501.2300, L500.2500, L100.0500, L501.5200, L501.9520 ####[facility] [address] [place], [address] Platelets (Bld) [#/Vol] 146 10*3/uL Low 150-450 [facility] Comment on above: Performed By: #### L 501.2300, L500.2500, L100.0500, L501.5200, L501.9520 ####[facility] [address] [place], [address] RBC (Bld) [#/Vol] 3.99 10*6/uL Low 4.2-5.4 [facility] Comment on above: Performed By: #### L 501.2300, L500.2500, L100.0500, L501.5200, L501.9520 ####[facility] [address] [place], [address] RDW SD 52.5 fl High 35.1-43.9 [facility] Comment on above: Performed By: #### L 501.2300, L500.2500, L100.0500, L501.5200, L501.9520 ####[facility] [address] [place], [address] WBC (Bld) [#/Vol] 5.0 10*3/uL Normal 4.4-11.[address] [facility] Comment on above: Performed By: #### L 501.2300, L500.2500, L100.0500, L501.5200, L501.9520 ####[facility] [address] [place], [address] EGD Reporton 04-20-2025 EGD Report Normal [facility] Electrocardiogram reportOrde red By: Bhavik Smiley on 04-20-2025 EKG study [facility] Work Phone: MR/POSTOP.ANEon 04-20-2025 MR/POSTOP.ANE Normal [facility] MR/[id number] 04-20-2025 MR/POSTOPAN2 Normal [facility] Magnesiumon 04-20-2025 Magnesium [Mass/Vol] 2.2 mg/dL Normal 1.5-2.2 [facility] Comment on above: Performed By: #### L 501.2300, L500.2500, L100.0500, L501.5200, L501.9520 ####[facility] [address] [place], [address] Magnesium measurement (mass/ volume)Ordered By: Roman Mckeon on 04-20-2025 Magnesium (Unsp spec) [Mass/Vol] 2.2 mg/dL 1.5-2.2 [facility] Phosphoruson 04-20-2025 Phosphate [Mass/Vol] 3.5 mg/dL Normal 2.7-4.5 [facility] Comment on above: Performed By: #### L 501.2300, L500.2500, L100.0500, L501.5200, L501.9520 ####[facility] [id number] [place], [address] TSH DL <= 0.005 mIU/L QnOrde red By: Storm Gómez on 04-20-2025 TSH Qn 5.620 uIU/mL High 0.300-4.20 0 [facility] Thyroid Stim Hormone (TSH)on 04-20-2025 TSH 5.620 uIU/mL High 0.300-4.20 0 [facility] Comment on above: Performed By: #### L 501.2300, L500.2500, L100.0500, L501.5200, L501.9520 ####[facility] [address] [place], [address] Absolute lymphocyte countOrd ered By: Sachin Murillo on 04-19-2025 Lymphocytes Auto (Unsp spec) [#/Vol] 0.78 10*3/uL Low 0.83-4.51 [facility] Automated lymphocyte count a s percentage of total leukocytesOrdered By: Sachin Murillo on 04-19-2025 Lymphocytes/100 WBC Auto (Unsp spec) 11.1 % Low 19-41 [facility] Basic Metabolic Profile (BMP )on 04-19-2025 BUN/CRE 16.8 RATIO Normal 10-20 [facility] Comment on above: Performed By: #### L 100.0100, L500.2500 ####[facility] [address] [place], [address] Calcium [Mass/Vol] 8.1 mg/dL Normal 7.6-11.[address] [facility] Comment on above: Performed By: #### L 100.0100, L500.2500 ####[facility] [address] [place], [address] Chloride [Moles/Vol] 106 mmol/L Normal 98-108 [facility] Comment on above: Performed By: #### L 100.0100, L500.2500 ####[facility] [address] [place], [address] CO2 [Moles/Vol] 22.1 mmol/L Normal 21.0-32.0 [facility] Comment on above: Performed By: #### L 100.0100, L500.2500 ####[facility] [address] [place], [address] Creatinine [Mass/Vol] 1.17 mg/dL Normal 0.70-1.20 [facility] Comment on above: Performed By: #### L 100.0100, L500.2500 ####[facility] [address] [place], [address] ECRCL 32.28 ml/min Low 50-250 [facility] Comment on above: Performed By: #### L 100.0100, L500.2500 ####[facility] [address] [place], [address] GAP 10 Normal 5-15 [facility] Comment on above: Performed By: #### L 100.0100, L500.2500 ####[facility] [address] [place], [address] GFR/1.73 sq M.predicted among non-blacks MDRD (S/P/Bld) [Vol rate/Area] 50 mL/min/{1.73_m2} Low >60 [facility] Comment on above: Result Comment: mL/m in/1.73m2 CKD-EPI Creatinine Equation (2020) Performed By: #### L 100.0100, L500.2500 ####[facility] [address] [place], [address] Glucose [Mass/Vol] 111 mg/dL High 70-[address] [facility] Comment on above: Performed By: #### L 100.0100, L500.2500 ####[facility] [address] [place], [address] Potassium [Moles/Vol] 3.6 mmol/L Normal 3.3-5.1 [facility] Comment on above: Performed By: #### L 100.0100, L500.2500 ####[facility] [address] [place], [address] Sodium [Moles/Vol] 137 mmol/L Normal 133-[address] [facility] Comment on above: Performed By: #### L 100.0100, L500.2500 ####[facility] [address] [place], [address] Urea nitrogen [Mass/Vol] 20 mg/dL High 4-19 [facility] Comment on above: Performed By: #### L 100.0100, L500.2500 ####[facility] [address] [place], [address] Basophil percentageOrdered B y: Sachin Murillo on 04-19-2025 Basophils/100 WBC (Bld) 0.4 % 0-1 [facility] CBC W/Diff, Automatedon Absolute Lymph 0.78 X10 3/uL Low 0.83-4.51 [facility] Comment on above: Performed By: #### L 100.0100, L500.2500 ####[facility] [address] [place], [address] Absolute Neut 5.2 X10 3/uL Normal 2.0-7.7 [facility] Comment on above: Performed By: #### L 100.0100, L500.2500 ####[facility] [address] [place], [address] Basophils/100 WBC (Bld) 0.4 % Normal 0-1 [facility] Comment on above: Performed By: #### L 100.0100, L500.2500 ####[facility] [address] [place], [address] Eosinophils/100 WBC (Bld) 1.9 % Normal 0-5 [facility] Comment on above: Performed By: #### L 100.0100, L500.2500 ####[facility] [address] [place], [address] Erythrocyte distribution width (RBC) [Ratio] 17.0 % High 11.6-14.6 [facility] Comment on above: Performed By: #### L 100.0100, L500.2500 ####[facility] [address] [place], [address] Hematocrit (Bld) [Volume fraction] 29.4 % Low 37-47 [facility] Comment on above: Performed By: #### L 100.0100, L500.2500 ####[facility] [address] [place], [address] Hemoglobin (Bld) [Mass/Vol] 9.5 g/dL Low 12.0-15.0 [facility] Comment on above: Performed By: #### L 100.0100, L500.2500 ####[facility] [address] [place], [address] IG% 0.400 Normal 0.0-0.9 [facility] Comment on above: Result Comment: IG% - Immature Granulocytes (promyelocytes, myelocytes andmetamyelocytes) > 1% indicates that a LEFT SHIFT is Present. Performed By: #### L 100.0100, L500.2500 ####[facility] [address] [place], [address] Lymphocytes/100 WBC (Bld) 11.1 % Low 19-41 [facility] Comment on above: Performed By: #### L 100.0100, L500.2500 ####[facility] [address] [place], [address] MCH (RBC) [Entitic mass] 27.1 pg Normal 27.0-32.0 [facility] Comment on above: Performed By: #### L 100.0100, L500.2500 ####[facility] [address] [place], [address] MCHC (RBC) [Mass/Vol] 32.3 g/dL Normal 32-36 [facility] Comment on above: Performed By: #### L 100.0100, L500.2500 ####[facility] [address] [place], [address] MCV (RBC) [Entitic vol] 84.0 fL Normal 81-99 [facility] Comment on above: Performed By: #### L 100.0100, L500.2500 ####[facility] [address] [place], [address] Monocytes/100 WBC (Bld) 11.3 % High 0-10 [facility] Comment on above: Performed By: #### L 100.0100, L500.2500 ####[facility] [address] [place], [address] Neutrophils/100 WBC (Bld) 74.9 % High 47-70 [facility] Comment on above: Performed By: #### L 100.0100, L500.2500 ####[facility] [address] [place], [address] Nucleated RBC (Bld) [#/Vol] 0.3 10*3/uL Normal 0-5 [facility] Comment on above: Performed By: #### L 100.0100, L500.2500 ####[facility] [address] [place], [address] Platelet mean volume (Bld) [Entitic vol] 9.8 fL Normal 6.2-12.0 [facility] Comment on above: Performed By: #### L 100.0100, L500.2500 ####[facility] [address] [place], [address] Platelets (Bld) [#/Vol] 133 10*3/uL Low 150-450 [facility] Comment on above: Performed By: #### L 100.0100, L500.2500 ####[facility] [address] [place], [address] RBC (Bld) [#/Vol] 3.50 10*6/uL Low 4.2-5.4 [facility] Comment on above: Performed By: #### L 100.0100, L500.2500 ####[facility] [address] [place], [address] RDW SD 51.9 fl High 35.1-43.9 [facility] Comment on above: Performed By: #### L 100.0100, L500.2500 ####[facility] [address] [place], [address] WBC (Bld) [#/Vol] 7.0 10*3/uL Normal 4.4-11.[address] [facility] Comment on above: Performed By: #### L 100.0100, L500.2500 ####[facility] [address] [place], [address] Eosinophil percentageOrdered By: Sachin Murillo on 04-19-2025 Eosinophils/100 WBC (Bld) 1.9 % 0-5 [facility] HH, Hemoglobin AND Hematocri ton 04-19-2025 HCT Normal 37-47 [facility] Comment on above: Result Comment: CBC BEING DONE H H IS IN CBC Performed By: #### L 100.0600 ####[facility] [address] [place], [address] HGB Normal 12.0-15.0 [facility] Comment on above: Result Comment: CBC BEING DONE H H IS IN CBC Performed By: #### L 100.0600 ####[facility] [address] [place], [place], [phone] Hematocrit (Bld) [Volume fraction] 20.6 % Low 37-47 [facility] Comment on above: Performed By: #### L 100.0600 ####[facility] [address] [place], [place], [phone] Hemoglobin (Bld) [Mass/Vol] 6.3 g/dL Low 12.0-15.0 [facility] Comment on above: Performed By: #### L 100.0600 ####[facility] [address] [place], [address]) Immature granulocytes/100 WB C Auto (Bld)Ordered By: Sachin Murillo on 04-19-2025 Immature granulocytes/100 WBC (Bld) 0.400 % 0.0-0.9 [facility] L499.0043on 04-19-2025 Trop T High Sen 24 ng/L High <=14 [facility] Comment on above: Performed By: #### L 499.0043 ####[facility] [address] [place], [address] Lactic Acidon 04-19-2025 Lactate [Moles/Vol] mmol/L Normal 0.0-2.0 [facility] Comment on above: Performed By: #### L 503.6005 ####[facility] [address] [place], [place], [id number] Monocyte percentageOrdered B y: Sachin Murillo on 04-19-2025 Monocytes/100 WBC (Bld) 11.3 % High 0-10 [facility] Neutrophil percentageOrdered By: Sachin Murillo on 04-19-2025 Neutrophils/100 WBC (Bld) 74.9 % High 47-70 [facility] 12 Lead EKGon 04-18-2025 12 Lead EKG Normal [facility] Absolute lymphocyte countOrd ered By: Jeffy Willoughby on 04-18-2025 Lymphocytes Auto (Unsp spec) [#/Vol] 0.83 10*3/uL 0.83-4.51 [facility] Absolute neutrophil countOrd ered By: Jeffy Willoughby on 04-18-2025 Neutrophils (Bld) [#/Vol] 7.0 10*3/uL 2.0-7.7 [facility] Anion gap in Serum or Plasma Ordered By: Jeffy Blocko on 04-18-2025 Anion gap [Moles/Vol] 15 mmol/L 5-15 [facility] Automated lymphocyte count a s percentage of total leukocytesOrdered By: Jeffy Blocko on 04-18-2025 Lymphocytes/100 WBC Auto (Unsp spec) 9.5 % Low 19-41 [facility] BRCon 04-18-2025 RC Normal [facility] Comment on above: Result Comment: [id number] OP RC TRANSFUSED 04/19/25 [id number] OP RC TRANSFUSED 04/19/25 0801 Performed By: #### B RC ####[facility] [address] [place], [place], [id number] BUN/creatinine ratioOrdered By: Jeffyaura Blocko on 04-18-2025 Urea nitrogen/Creatinine [Mass ratio] 18.9 mg/mg 10-20 [facility] Basophil percentageOrdered B y: Jeffy Blocko on 04-18-2025 Basophils/100 WBC (Bld) 0.6 % 0-1 [facility] Bedside Glucoseon 04-18-2025 FINGERSTICK GLU 121 mg/dL High 74-106 [facility] Comment on above: Result Comment: YONY HARTMANN OF PATIENT CARE PER NURSING PROTOCOL Performed By: #### L 501.080 ####[facility] [address] [place], [address] Bilirubin, totalOrdered By: Jeffy Blocko on 04-18-2025 Bilirubin [Mass/Vol] 0.35 mg/dL 0.00-1.30 [facility] CBC W/Diff, Automatedon 03-21 Absolute Lymph 0.83 X10 3/uL Normal 0.83-4.51 [facility] Comment on above: Performed By: #### L 503.6005, L100.0100, L501.2450, L500.4050, BTS ####[facility] [address] [place], [address] Absolute Neut 7.0 X10 3/uL Normal 2.0-7.7 [facility] Comment on above: Performed By: #### L 503.6005, L100.0100, L501.2450, L500.4050, BTS ####[facility] [address] [place], [address] Basophils/100 WBC (Bld) 0.6 % Normal 0-1 [facility] Comment on above: Performed By: #### L 503.6005, L100.0100, L501.2450, L500.4050, BTS ####[facility] [address] [place], [address] Eosinophils/100 WBC (Bld) 0.5 % Normal 0-5 [facility] Comment on above: Performed By: #### L 503.6005, L100.0100, L501.2450, L500.4050, BTS ####[facility] [address] [place], [address] Erythrocyte distribution width (RBC) [Ratio] 17.3 % High 11.6-14.6 [facility] Comment on above: Performed By: #### L 503.6005, L100.0100, L501.2450, L500.4050, BTS ####[facility] [address] [place], [address] Hematocrit (Bld) [Volume fraction] 23.5 % Low 37-47 [facility] Comment on above: Performed By: #### L 503.6005, L100.0100, L501.2450, L500.4050, BTS ####[facility] [address] [place], [address] Hemoglobin (Bld) [Mass/Vol] 7.3 g/dL Low 12.0-15.0 [facility] Comment on above: Performed By: #### L 503.6005, L100.0100, L501.2450, L500.4050, BTS ####[facility] [address] [place], [address] IG% 0.500 Normal 0.0-0.9 [facility] Comment on above: Result Comment: IG% - Immature Granulocytes (promyelocytes, myelocytes andmetamyelocytes) > 1% indicates that a LEFT SHIFT is Present. Performed By: #### L 503.6005, L100.0100, L501.2450, L500.4050, BTS ####[facility] [address] [place], [address] Lymphocytes/100 WBC (Bld) 9.5 % Low 19-41 [facility] Comment on above: Performed By: #### L 503.6005, L100.0100, L501.2450, L500.4050, BTS ####[facility] [address] [place], [address] MCH (RBC) [Entitic mass] 24.6 pg Low 27.0-32.0 [facility] Comment on above: Performed By: #### L 503.6005, L100.0100, L501.2450, L500.4050, BTS ####[facility] [address] [place], [address] MCHC (RBC) [Mass/Vol] 31.1 g/dL Low 32-36 [facility] Comment on above: Performed By: #### L 503.6005, L100.0100, L501.2450, L500.4050, BTS ####[facility] [address] [place], [address] MCV (RBC) [Entitic vol] 79.1 fL Low 81-99 [facility] Comment on above: Performed By: #### L 503.6005, L100.0100, L501.2450, L500.4050, BTS ####[facility] [address] [place], [address] Monocytes/100 WBC (Bld) 9.4 % Normal 0-10 [facility] Comment on above: Performed By: #### L 503.6005, L100.0100, L501.2450, L500.4050, BTS ####[facility] [address] [place], [address] Neutrophils/100 WBC (Bld) 79.5 % High 47-70 [facility] Comment on above: Performed By: #### L 503.6005, L100.0100, L501.2450, L500.4050, BTS ####[facility] [address] [place], [address] Nucleated RBC (Bld) [#/Vol] 0.2 10*3/uL Normal 0-5 [facility] Comment on above: Performed By: #### L 503.6005, L100.0100, L501.2450, L500.4050, BTS ####[facility] [address] [place], [address] Platelet mean volume (Bld) [Entitic vol] 9.6 fL Normal 6.2-12.0 [facility] Comment on above: Performed By: #### L 503.6005, L100.0100, L501.2450, L500.4050, BTS ####[facility] [address] [place], [address] Platelets (Bld) [#/Vol] 195 10*3/uL Normal 150-450 [facility] Comment on above: Performed By: #### L 503.6005, L100.0100, L501.2450, L500.4050, BTS ####[facility] [address] [place], [address] RBC (Bld) [#/Vol] 2.97 10*6/uL Low 4.2-5.4 [facility] Comment on above: Performed By: #### L 503.6005, L100.0100, L501.2450, L500.4050, BTS ####[facility] [address] [place], [address] RDW SD 50.4 fl High 35.1-43.9 [facility] Comment on above: Performed By: #### L 503.6005, L100.0100, L501.2450, L500.4050, BTS ####[facility] [address] [place], [address] WBC (Bld) [#/Vol] 8.7 10*3/uL Normal 4.4-11.[address] [facility] Comment on above: Performed By: #### L 503.6005, L100.0100, L501.2450, L500.4050, BTS ####[facility] [address] [place], [address] Carbon dioxide, total [Moles /volume] in Central venous bloodOrdered By: Jeffy Willoughby on 04-18-2025 CO2 [Moles/Vol] 21.0 mmol/L 21.0-32.0 [facility] Chloride assayOrdered By: Barrett Willoughby on 04-18-2025 Chloride [Moles/Vol] 97 mmol/L Low 98-108 [facility] Comprehensive Metabolic Prof ilon 04-18-2025 Albumin [Mass/Vol] 4.1 g/dL Normal 3.4-4.[address] [facility] Comment on above: Performed By: #### L 503.6005, L100.0100, L501.2450, L500.4050, BTS ####[facility] [address] [place], [address] Albumin/Globulin [Mass ratio] 1.7 {ratio} Normal 0.9-2.4 [facility] Comment on above: Performed By: #### L 503.6005, L100.0100, L501.2450, L500.4050, BTS ####[facility] [address] [place], [address] ALK PHOS 88 U/L Normal 35-104 [facility] Comment on above: Performed By: #### L 503.6005, L100.0100, L501.2450, L500.4050, BTS ####[facility] [address] [place], [address] ALT [Catalytic activity/Vol] 8 U/L Normal <=34 [facility] Comment on above: Performed By: #### L 503.6005, L100.0100, L501.2450, L500.4050, BTS ####[facility] [address] [place], [address] AST [Catalytic activity/Vol] 16 U/L Normal <=31 [facility] Comment on above: Performed By: #### L 503.6005, L100.0100, L501.2450, L500.4050, BTS ####[facility] [address] [place], [address] Bilirubin [Mass/Vol] 0.35 mg/dL Normal 0.00-1.30 [facility] Comment on above: Performed By: #### L 503.6005, L100.0100, L501.2450, L500.4050, BTS ####[facility] [address], [address] BUN/CRE 18.9 RATIO Normal 10-20 [facility] Comment on above: Performed By: #### L 503.6005, L100.0100, L501.2450, L500.4050, BTS ####[facility] [address] [place], [address] Calcium [Mass/Vol] 9.0 mg/dL Normal 7.6-11.[address] [facility] Comment on above: Performed By: #### L 503.6005, L100.0100, L501.2450, L500.4050, BTS ####[facility] [address], [address] Chloride [Moles/Vol] 97 mmol/L Low 98-108 [facility] Comment on above: Performed By: #### L 503.6005, L100.0100, L501.2450, L500.4050, BTS ####[facility] [address] [place], [address] CO2 [Moles/Vol] 21.0 mmol/L Normal 21.0-32.0 [facility] Comment on above: Performed By: #### L 503.6005, L100.0100, L501.2450, L500.4050, BTS ####[facility] [address] [place], [address] Creatinine [Mass/Vol] 1.28 mg/dL High 0.70-1.20 [facility] Comment on above: Performed By: #### L 503.6005, L100.0100, L501.2450, L500.4050, BTS ####[facility] [address], [address] ECRCL 29.72 ml/min Low 50-250 [facility] Comment on above: Performed By: #### L 503.6005, L100.0100, L501.2450, L500.4050, BTS ####[facility] [address], [address] GAP 15 Normal 5-15 [facility] Comment on above: Performed By: #### L 503.6005, L100.0100, L501.2450, L500.4050, BTS ####[facility] [address] [place], [address] GFR/1.73 sq M.predicted among non-blacks MDRD (S/P/Bld) [Vol rate/Area] 45 mL/min/{1.73_m2} Low >60 [facility] Comment on above: Result Comment: mL/m in/1.73m2 CKD-EPI Creatinine Equation (2020) Performed By: #### L 503.6005, L100.0100, L501.2450, L500.4050, BTS ####[facility] [address] [place], [address] Globulin (S) [Mass/Vol] 2.4 g/dL Normal 2.2-4.2 [facility] Comment on above: Performed By: #### L 503.6005, L100.0100, L501.2450, L500.4050, BTS ####[facility] [address] [place], [address] Glucose [Mass/Vol] 135 mg/dL High 70-[address] [facility] Comment on above: Performed By: #### L 503.6005, L100.0100, L501.2450, L500.4050, BTS ####[facility] [address] [place], [address] Potassium [Moles/Vol] 3.8 mmol/L Normal 3.3-5.1 [facility] Comment on above: Performed By: #### L 503.6005, L100.0100, L501.2450, L500.4050, BTS ####[facility] [address] [place], [address] Sodium [Moles/Vol] 133 mmol/L Normal 133-[address] [facility] Comment on above: Performed By: #### L 503.6005, L100.0100, L501.2450, L500.4050, BTS ####[facility] [address] [place], [address] T PROT 6.4 g/dL Normal 5.9-8.4 [facility] Comment on above: Performed By: #### L 503.6005, L100.0100, L501.2450, L500.4050, BTS ####[facility] [address] [place], [address] Urea nitrogen [Mass/Vol] 24 mg/dL High 4-19 [facility] Comment on above: Performed By: #### L 503.6005, L100.0100, L501.2450, L500.4050, BTS ####[facility] [address] [place], [address] Emergency Department Summary on 04-18-2025 Emergency Department Summary Normal [facility] Eosinophil percentageOrdered By: Jeffy Willoughby on 04-18-2025 Eosinophils/100 WBC (Bld) 0.5 % 0-5 [facility] Erythrocyte distribution wid th ratioOrdered By: Jeffy Willoughby on 04-18-2025 Erythrocyte distribution width (RBC) [Ratio] 17.3 % High 11.6-14.6 [facility] [facility] Erythrocyte distribution wid th standard deviationOrdered By: Jeffy Willoughby on 04-18-2025 Erythrocyte distribution width (RBC) [Ratio] 50.4 fl High 35.1-43.9 [facility] Ferritinon 04-18-2025 Ferritin [Mass/Vol] 12 ng/mL Low 22-378 [facility] Comment on above: Performed By: #### L 503.6550, L503.6030 ####[facility] [address] [place], [address] Glomerular filtration rate ( GFR) estimation/1.73 sq m using serum, plasma, or whole bOrdered By: Jeffy Willoughby on 04-18-2025 GFR/1.73 sq M.predicted among non-blacks MDRD (S/P/Bld) [Vol rate/Area] 45 mL/min/{1.73_m2} Low >60 [facility] Comment on above: mL/min/1.73m2 CKD-EP I Creatinine Equation (2020) [facility] deOrdered By: Jeffy Willoughby on 04-18-2025 Glucose [Mass/Vol] 121 mg/dL High 74-[address] [facility] Comment on above: MANAGEMENT OF PATIEN T CARE PER NURSING PROTOCOL H AND P Exam - Hospitaliston 04-18-2025 H&P Exam - Hospitalist Normal [facility] Hematocrit Auto (Bld) [Volum e fraction]Ordered By: Jeffy Willoughby on 04-18-2025 Hematocrit (Bld) [Volume fraction] 23.5 % Low 37-47 [facility] Hemoglobin measurementOrdere d By: Jeffy Willoughby on 04-18-2025 Hemoglobin (Bld) [Mass/Vol] 7.3 g/dL Low 12.0-15.0 [facility] Immature granulocytes/100 WB C Auto (Bld)Ordered By: Jeffyaura Wliloughby on 04-18-2025 Immature granulocytes/100 WBC (Bld) 0.500 % 0.0-0.9 [facility] Comment on above: IG% - Immature Granu locytes (promyelocytes, myelocytes and metamyelocytes) > 1% indicates that a LEFT SHIFT is Present. Iron measurement (mass/mass) Ordered By: Sachin Murillo on 04-18-2025 Iron (Unsp spec) [Mass/Mass] 16 ug/dL Low 50-170 [facility] Iron+Iron Binding Capacityon 04-18-2025 Iron [Mass/Vol] 16 ug/dL Low 50-170 [facility] Comment on above: Performed By: #### L 232.1627, L503.6030 ####[facility] [address] [place], [place], [id number] IRON SATURATION 4.0 Low 13-59 [facility] Comment on above: Performed By: #### L 866.0154, L503.6030 ####[facility] [address] [place], [address] TIBC 372 ug/dL Normal 250-450 [facility] Comment on above: Performed By: #### L 503.6550, L503.6030 ####[facility] [address] [place], [address] UIBC 356 ug/dL Normal 228-428 [facility] Comment on above: Performed By: #### L 503.6550, L503.6030 ####[facility] [address] [place], [address] L499.0042on 04-18-2025 Trop T High Sen 24 ng/L High <=14 [facility] Comment on above: Performed By: #### L 499.0042 ####[facility] [address] [place], [address] L501.4021on 04-18-2025 Trop T High Sen 30 ng/L High <=14 [facility] Comment on above: Performed By: #### L 501.4021 ####[facility] [address] [place], [address] Laboratory - Chemistry and C hemistry - challengeOrdered By: Jeffy Willoughby on 04-18-2025 AST [Catalytic activity/Vol] 16 U/L <32 [facility] Lactic Acidon 04-18-2025 Lactate [Moles/Vol] 2.6 mmol/L Invalid Interpretation Code 0.0-2.0 [facility] Comment on above: Order Comment: Y Result Comment: Crit ical Result(s) Called LSPARR at: 1946 by:DIOGO??Results read back by same. Performed By: #### L 503.6005, L100.0100, L501.2450, L500.4050, BTS ####[facility] [address] [place], [address] Lactic acid measurementOrder ed By: Jeffy Willoughby on 04-18-2025 Lactate [Moles/Vol] 2.6 mmol/L High 0.0-2.0 [facility] Comment on above: Critical Result(s) C alled LSPARR at: 1946 by: DIOGO Results read back by same. Lipaseon 04-18-2025 Lipase [Catalytic activity/Vol] 15 U/L Normal 13-75 [facility] Comment on above: Result Comment: Stacy pringle note:LIPASE revised reference range effective 23.New Lipase methodology. Expected to produce lower valuesthan the previous assay method.NEW Reference Range: 13 - 75 U/L Performed By: #### L 503.6005, L100.0100, L501.2450, L500.4050, BTS ####[facility] [address] [place], [place], [id number] Lipase measurementOrdered By : Jeffy Willoughby on 04-18-2025 Lipase [Catalytic activity/Vol] 15 U/L 13-75 [facility] Comment on above: Please note:LIPASE r evised reference range effective 23. New Lipase methodology. Expected to produce lower values than the previous assay method. NEW Reference Range: 13 - 75 U/L MCV (mean corpuscular volume ) determinationOrdered By: Jeffy Willoughby on 04-18-2025 MCV (RBC) [Entitic vol] 79.1 fL Low 81-99 [facility] Mean corpuscular hemoglobin (MCH) determinationOrdered By: Jeffy Willoughby on 04-18-2025 MCH (RBC) [Entitic mass] 24.6 pg Low 27.0-32.0 [facility] Mean corpuscular hemoglobin concentration (MCHC) determinationOrdered By: Jeffy Willoughby on 04-18-2025 MCHC (RBC) [Mass/Vol] 31.1 g/dL Low 32-36 [facility] Mean platelet volume determi nationOrdered By: Jeffyaura Willoughby on 04-18-2025 Platelet mean volume (Bld) [Entitic vol] 9.6 fL 6.2-12.0 [facility] Monocyte percentageOrdered B y: Jeffy Willoughby on 04-18-2025 Monocytes/100 WBC (Bld) 9.4 % 0-10 [facility] Neutrophil percentageOrdered By: Jeffy Willoughby on 04-18-2025 Neutrophils/100 WBC (Bld) 79.5 % High 47-70 [facility] No Panel InformationOrdered By: Sachin Murillo on 04-18-2025 356 ug/dL 228-428 [facility] No Panel InformationOrdered By: Jeffy Willoughby on 04-18-2025 16 U/L <32 [facility] Nucleated red blood cell per centageOrdered By: Jeffy Willoughby on 04-18-2025 Nucleated RBC/100 WBC (Bld) [Ratio] 0.2 % 0-5 [facility] Platelet countOrdered By: Barrett Willoughby on 04-18-2025 Platelets (Bld) [#/Vol] 195 10*3/uL 150-450 [facility] Potassium measurement (mass/ volume)Ordered By: Jeffy Willoughby on 04-18-2025 Potassium (Unsp spec) [Mass/Vol] 3.8 mmol/L 3.3-5.1 [facility] RBC Auto (Bld) [#/Vol]Ordere d By: Jeffy Willoughby on 04-18-2025 RBC (Bld) [#/Vol] 2.97 10*6/uL Low 4.2-5.4 [facility] Serum creatinine measurement (mass/volume)Ordered By: Jeffy Willoughby on 04-18-2025 Creatinine [Mass/Vol] 1.28 mg/dL High 0.70-1.20 [facility] Serum globulin measurementOr dered By: Jeffy Willoughby on 04-18-2025 Globulin (S) [Mass/Vol] 2.4 g/dL 2.2-4.2 [facility] Serum glucose measurement (m ass/volume)Ordered By: Jeffy Willoughby on 04-18-2025 Glucose [Mass/Vol] 135 mg/dL High 70-[address] [facility] Serum or plasma alanine pizarro otransferase (ALT) measurementOrdered By: Jeffy Willoughby on 04-18-2025 ALT [Catalytic activity/Vol] 8 U/L <35 [facility] Serum or plasma albumin stefania urement (mass/volume)Ordered By: Jeffy Willoughby on 04-18-2025 Albumin [Mass/Vol] 4.1 g/dL 3.4-4.[address] [facility] Serum or plasma albumin/glob ulin mass ratioOrdered By: Jeffy Willoughby on 04-18-2025 Albumin/Globulin [Mass ratio] 1.7 {ratio} 0.9-2.4 [facility] Serum or plasma alkaline anthony sphatase measurementOrdered By: Jeffy Willoughby on 04-18-2025 ALP [Catalytic activity/Vol] 88 U/L 35-104 [facility] Serum or plasma calcium stefania urement (mass/volume)Ordered By: Jeffy Willoughby on 04-18-2025 Calcium [Mass/Vol] 9.0 mg/dL 7.6-11.[address] [facility] Serum or plasma ferritin felicia surement (mass/volume)Ordered By: Sachin Murillo on 04-18-2025 Ferritin [Mass/Vol] 12 ng/mL Low 22-378 [facility] Serum or plasma iron saturat ion measurement (mass fraction)Ordered By: Sachin Murillo on 04-18-2025 Iron saturation [Mass fraction] 4.0 % Low 13-59 [facility] Serum or plasma urea nitroge n measurement (mass/volume)Ordered By: Jeffy Willoughby on 04-18-2025 Urea nitrogen [Mass/Vol] 24 mg/dL High 4-19 [facility] Sodium levelOrdered By: Jeffy Willoughby on 04-18-2025 Sodium [Moles/Vol] 133 mmol/L 133-[address] [facility] Total proteinOrdered By: Jeffy Willoughby on 04-18-2025 Protein [Mass/Vol] 6.4 g/dL 5.9-8.[address] [facility] Troponin T.cardiac [Mass/vol ume] in Serum or Plasma by High sensitivity methodOrdered By: Jeffy Willoughby on 04-18-2025 Troponin T.cardiac High sensitivity method [Mass/Vol] 24 ng/L High <14 [facility] Troponin T.cardiac High sensitivity method [Mass/Vol] 24 ng/L High <14 [facility] Troponin T.cardiac High sensitivity method [Mass/Vol] 30 ng/L High <14 [facility] Type AND Screenon 04-18-2025 ABO and Rh group Nom (Bld) Blood group O Rh(D) positive Normal [facility] Comment on above: Order Comment: AMGGI W. PREVIOUS SPECIMEN REJECTED DUE TOWRONG DATE OF ON SPECIMEN. 04/18/25 Performed By: #### B TS ####[facility] [address] [place], [place], [id number] A1 CELL Not performed Normal [facility] Comment on above: Order Comment: A Result Comment: This specimen has been REJECTED due to Laboratory criteria:MisLabelled-INCORRECT DATE OF OF PATIENT ON FENWALBAND SPECIMEN.ED has been notified of need of recollection.04/18/251900 Performed By: #### L 503.6005, L100.0100, L501.2450, L500.4050, BTS ####[facility] [address] [place], [place], [id number] Ab SCREEN GEL Not performed Normal [facility] Comment on above: Order Comment: A Result Comment: This specimen has been REJECTED due to Laboratory criteria:MisLabelled-INCORRECT DATE OF OF PATIENT ON FENWALBAND SPECIMEN.ED has been notified of need of recollection.04/18/251900 Performed By: #### L 503.6005, L100.0100, L501.2450, L500.4050, BTS ####[facility] [address] [place], [address] ABO and Rh group Nom (Bld) Test Not Performed Normal [facility] Comment on above: Order Comment: A Result Comment: This specimen has been REJECTED due to Laboratory criteria:MisLabelled-INCORRECT DATE OF OF PATIENT ON FENWALBAND SPECIMEN.ED has been notified of need of recollection.04/18/251900 Performed By: #### L 503.6005, L100.0100, L501.2450, L500.4050, BTS ####[facility] [address] [place], [address] ANTI A Not performed Normal [facility] Comment on above: Order Comment: A Result Comment: This specimen has been REJECTED due to Laboratory criteria:MisLabelled-INCORRECT DATE OF OF PATIENT ON FENWALBAND SPECIMEN.ED has been notified of need of recollection.04/18/251900 Performed By: #### L 503.6005, L100.0100, L501.2450, L500.4050, BTS ####[facility] [address] [place], [address] ANTI B Not performed Normal [facility] Comment on above: Order Comment: A Result Comment: This specimen has been REJECTED due to Laboratory criteria:MisLabelled-INCORRECT DATE OF OF PATIENT ON FENWALBAND SPECIMEN.ED has been notified of need of recollection.04/18/251900 Performed By: #### L 503.6005, L100.0100, L501.2450, L500.4050, BTS ####[facility] [address] [place], [address] ANTI D Not performed Normal [facility] Comment on above: Order Comment: A Result Comment: This specimen has been REJECTED due to Laboratory criteria:MisLabelled-INCORRECT DATE OF OF PATIENT ON FENWALBAND SPECIMEN.ED has been notified of need of recollection.04/18/251900 Performed By: #### L 503.6005, L100.0100, L501.2450, L500.4050, BTS ####[facility] [address] [place], [address] B CELLS Not performed Normal [facility] Comment on above: Order Comment: A Result Comment: This specimen has been REJECTED due to Laboratory criteria:MisLabelled-INCORRECT DATE OF OF PATIENT ON FENWALBAND SPECIMEN.ED has been notified of need of recollection.04/18/251900 Performed By: #### L 503.6005, L100.0100, L501.2450, L500.4050, BTS ####[facility] [address] [place], [address] White blood cell (WBC) count Ordered By: Jeffy Willoughby on 04-18-2025 WBC (Bld) [#/Vol] 8.7 10*3/uL 4.4-11.[address] [facility] Acute Abdomen Inc Cheston Acute Abdomen Inc Chest Normal [facility] Emergency Department Summary on 04-17-2025 Emergency Department Summary Normal [facility] Brain/Head without Contrasto n 04-11-2025 Brain/Head without Contrast Normal [facility] Emergency Department Summary on 04-11-2025 Emergency Department Summary Normal [facility] Sinus/Facial Boneon 04-11-20 Sinus/Facial Bone Normal [facility] Spine Cervical without Contr ason 04-11-2025 Spine Cervical without Contras Normal [facility] 37on 04-08-2025 37 Please call [place] [phone] to schedule the MRI brain before 05/03/25 - this is when the authorization for the MRI expires Normal [facility] Office Visiton 04-08-2025 Follow-up visit [id number] Estephania Yo 1955 F Date Provider Department Center 04/08/2025 [id number]-VAFHHOGRLIZZ LY[facility] None Family History Family Status - Relation Status Age at Mother Notes: brain tumor Father Notes: [place] of arteries Level of Service:07364 MD OFFICE/OUTPATIENT ESTABLISHED LOW MDM 20 MIN Reason for Visit and Comments: Follow-up [710067] Multiple Sclerosis [162] - Normal [facility] Progress Noteon 04-08-2025 Progress Note Visit type: Establis [facility] Patient Reason for Visit: Follow-up and Multiple Sclerosis (/) Assessment and Plan 1. Multiple sclerosis (HCC) 2. Dysphasia Subjective HPI: Patient phoned in 3 days ago stating MS flare - affecting speech, swallowing, and VOSS. Went to [facility] about 1 week ago; according to [...] typical MS symptoms Received CT scan at [place] that she states was normal REVIEW- MS- [...] TSH VITAMIN B12: No results found for: [id number] No results found for: PHENYTOIN, PHENOBARB, VALPROATE, CBMZ No components found for: TOPIRA @RESULTINGLABINFO@ No results found for: LEVETIRACETA, FERRITIN, CRP, DENNIS, ANCA No results found for: CHRISTIANO, IMMUNOGLOBUL, OLIGOBANDS No results found for: CVJ88UL, HEPCAB No results found for: CRP, ANATITER, ANCA FERRITIN: No results found for: FERRITIN ---- ECG 12 lead SINUS BRADYCARDIA PROBABLE LEFT ATRIAL ABNORMALITY No previous ECG available for comparison Electronically Signed On 04-05-2023 7:42:10 EDT by Juvenal Benton @[facility]@ IMPRESSION and PLAN: Problem List Items Ad (more content not included)... [facility] 36on 04-06-2025 36 Patient has been scheduled [facility] 36 I have a 200pm openi ng today or see what I or Dr. Main has open this week. Thank you. [facility] 36on 04-05-2025 36 S: patient calling C AC d/t MS flare up B: Symptoms started 3 weeks ago A: states MS is flaring up. Issues with speech, trouble swallowing, headache. Seen in er a couple days ago at [facility]. States is having trouble walking is [...] be seen in office. May go to [facility] today. Patient advised to call back with worsening of symptoms, concern or questions. Patient verbalized understanding. Reason for Disposition [1] Loss of speech or garbled speech AND [2] is a chronic symptom (recurrent or ongoing AND present > 4 weeks) Protocols used: Neurologic Sastzre-CEZKO-WB Normal [facility] 12 Lead EKGon 04-02-2025 12 Lead EKG Normal [facility] Abdomen/Pelvis W IV Cont ONL Yon 04-02-2025 Abdomen/Pelvis W IV Cont ONLY Normal [facility] Absolute lymphocyte countOrd ered By: Nuno Grider on 04-02-2025 Lymphocytes Auto (Unsp spec) [#/Vol] 0.62 10*3/uL Low 0.83-4.51 [facility] Absolute neutrophil countOrd ered By: Nuno Grider on 04-02-2025 Neutrophils (Bld) [#/Vol] 4.7 10*3/uL 2.0-7.7 [facility] Anion gap in Serum or Plasma Ordered By: Nuno Grider on 04-02-2025 Anion gap [Moles/Vol] 13 mmol/L 04-02 [facility] Automated lymphocyte count a s percentage of total leukocytesOrdered By: Nuno Grider on 04-02-2025 Lymphocytes/100 WBC Auto (Unsp spec) 10.5 % Low 19-41 [facility] BUN/creatinine ratioOrdered By: Nuno Grider on 04-02-2025 Urea nitrogen/Creatinine [Mass ratio] 22.3 mg/mg High 10-20 [facility] Basophil percentageOrdered B y: Nuno Grider on 04-02-2025 Basophils/100 WBC (Bld) 0.5 % 0-1 [facility] Bilirubin, totalOrdered By: Nuno Grider on 04-02-2025 Bilirubin [Mass/Vol] 0.22 mg/dL 0.00-1.30 [facility] CBC W/Diff, Automatedon 03-19 Absolute Lymph 0.62 X10 3/uL Low 0.83-4.51 [facility] Comment on above: Performed By: #### L 501.2450, L100.0100, L500.4050 ####[facility] [address] [place], [address] Absolute Neut 4.7 X10 3/uL Normal 2.0-7.7 [facility] Comment on above: Performed By: #### L 501.2450, L100.0100, L500.4050 ####[facility] [address] [place], [address] Basophils/100 WBC (Bld) 0.5 % Normal 0-1 [facility] Comment on above: Performed By: #### L 501.2450, L100.0100, L500.4050 ####[facility] [address] [place], [address] Eosinophils/100 WBC (Bld) 1.5 % Normal 0-5 [facility] Comment on above: Performed By: #### L 501.2450, L100.0100, L500.4050 ####[facility] [address] [place], [address] Erythrocyte distribution width (RBC) [Ratio] 16.5 % High 11.6-14.6 [facility] Comment on above: Performed By: #### L 501.2450, L100.0100, L500.4050 ####[facility] [address] [place], [address] Hematocrit (Bld) [Volume fraction] 28.2 % Low 37-47 [facility] Comment on above: Performed By: #### L 501.2450, L100.0100, L500.4050 ####[facility] [address] [place], [address] Hemoglobin (Bld) [Mass/Vol] 8.8 g/dL Low 12.0-15.0 [facility] Comment on above: Performed By: #### L 501.2450, L100.0100, L500.4050 ####[facility] [address] [place], [address] IG% 0.500 Normal 0.0-0.9 [facility] Comment on above: Result Comment: IG% - Immature Granulocytes (promyelocytes, myelocytes andmetamyelocytes) > 1% indicates that a LEFT SHIFT is Present. Performed By: #### L 501.2450, L100.0100, L500.4050 ####[facility] [address] [place], [address] Lymphocytes/100 WBC (Bld) 10.5 % Low 19-41 [facility] Comment on above: Performed By: #### L 501.2450, L100.0100, L500.4050 ####[facility] [address] [place], [address] MCH (RBC) [Entitic mass] 25.8 pg Low 27.0-32.0 [facility] Comment on above: Performed By: #### L 501.2450, L100.0100, L500.4050 ####[facility] [address] [place], [address] MCHC (RBC) [Mass/Vol] 31.2 g/dL Low 32-36 [facility] Comment on above: Performed By: #### L 501.2450, L100.0100, L500.4050 ####[facility] [address] [place], [address] MCV (RBC) [Entitic vol] 82.7 fL Normal 81-99 [facility] Comment on above: Performed By: #### L 501.2450, L100.0100, L500.4050 ####[facility] [address] [place], [address] Monocytes/100 WBC (Bld) 6.6 % Normal 0-10 [facility] Comment on above: Performed By: #### L 501.2450, L100.0100, L500.4050 ####[facility] [address] [place], [address] Neutrophils/100 WBC (Bld) 80.4 % High 47-70 [facility] Comment on above: Performed By: #### L 501.2450, L100.0100, L500.4050 ####[facility] [address] [place], [address] Nucleated RBC (Bld) [#/Vol] 0 10*3/uL Normal 0-5 [facility] Comment on above: Performed By: #### L 501.2450, L100.0100, L500.4050 ####[facility] [address] [place], [address] Platelet mean volume (Bld) [Entitic vol] 9.7 fL Normal 6.2-12.0 [facility] Comment on above: Performed By: #### L 501.2450, L100.0100, L500.4050 ####[facility] [address] [place], [address] Platelets (Bld) [#/Vol] 154 10*3/uL Normal 150-450 [facility] Comment on above: Performed By: #### L 501.2450, L100.0100, L500.4050 ####[facility] [address] [place], [address] RBC (Bld) [#/Vol] 3.41 10*6/uL Low 4.2-5.4 [facility] Comment on above: Performed By: #### L 501.2450, L100.0100, L500.4050 ####[facility] [address] [place], [address] RDW SD 49.7 fl High 35.1-43.9 [facility] Comment on above: Performed By: #### L 501.2450, L100.0100, L500.4050 ####[facility] [address] [place], [address] WBC (Bld) [#/Vol] 5.9 10*3/uL Normal 4.4-11.[address] [facility] Comment on above: Performed By: #### L 501.2450, L100.0100, L500.4050 ####[facility] [address] [place], [address] Carbon dioxide, total [Moles /volume] in Central venous bloodOrdered By: Nuno Grider on 04-02-2025 CO2 [Moles/Vol] 23.7 mmol/L 21.0-32.0 [facility] Chloride assayOrdered By: Jorge Grider on 04-02-2025 Chloride [Moles/Vol] 102 mmol/L 98-108 [facility] Comprehensive Metabolic Prof ilon 04-02-2025 Albumin [Mass/Vol] 4.2 g/dL Normal 3.4-4.[address] [facility] Comment on above: Performed By: #### L 501.2450, L100.0100, L500.4050 ####[facility] [address] [place], [address] Albumin/Globulin [Mass ratio] 1.7 {ratio} Normal 0.9-2.4 [facility] Comment on above: Performed By: #### L 501.2450, L100.0100, L500.4050 ####[facility] [address] [place], [address] ALK PHOS 87 U/L Normal 35-104 [facility] Comment on above: Performed By: #### L 501.2450, L100.0100, L500.4050 ####[facility] [address] [place], [address] ALT [Catalytic activity/Vol] 14 U/L Normal <=34 [facility] Comment on above: Performed By: #### L 501.2450, L100.0100, L500.4050 ####[facility] [address] [place], [address] AST [Catalytic activity/Vol] 16 U/L Normal <=31 [facility] Comment on above: Performed By: #### L 501.2450, L100.0100, L500.4050 ####[facility] [address] [place], [address] Bilirubin [Mass/Vol] 0.22 mg/dL Normal 0.00-1.30 [facility] Comment on above: Performed By: #### L 501.2450, L100.0100, L500.4050 ####[facility] [address] [place], [address] BUN/CRE 22.3 RATIO High 10-20 [facility] Comment on above: Performed By: #### L 501.2450, L100.0100, L500.4050 ####[facility] [address], [address] Calcium [Mass/Vol] 9.6 mg/dL Normal 7.6-11.[address] [facility] Comment on above: Performed By: #### L 501.2450, L100.0100, L500.4050 ####[facility] [address] [place], [address] Chloride [Moles/Vol] 102 mmol/L Normal 98-108 [facility] Comment on above: Performed By: #### L 501.2450, L100.0100, L500.4050 ####[facility] [address] [place], [address] CO2 [Moles/Vol] 23.7 mmol/L Normal 21.0-32.0 [facility] Comment on above: Performed By: #### L 501.2450, L100.0100, L500.4050 ####[facility] [address] [place], [address] Creatinine [Mass/Vol] 1.23 mg/dL High 0.70-1.20 [facility] Comment on above: Performed By: #### L 501.2450, L100.0100, L500.4050 ####[facility] [address] [place], [address] ECRCL 34.53 ml/min Low 50-250 [facility] Comment on above: Performed By: #### L 501.2450, L100.0100, L500.4050 ####[facility] [address], [address] GAP 13 Normal 5-15 [facility] Comment on above: Performed By: #### L 501.2450, L100.0100, L500.4050 ####[facility] [address] [place], [address] GFR/1.73 sq M.predicted among non-blacks MDRD (S/P/Bld) [Vol rate/Area] 47 mL/min/{1.73_m2} Low >60 [facility] Comment on above: Result Comment: mL/m in/1.73m2 CKD-EPI Creatinine Equation (2020) Performed By: #### L 501.2450, L100.0100, L500.4050 ####[facility] [address], [address] Globulin (S) [Mass/Vol] 2.5 g/dL Normal 2.2-4.2 [facility] Comment on above: Performed By: #### L 501.2450, L100.0100, L500.4050 ####[facility] [address], [address] Glucose [Mass/Vol] 129 mg/dL High 70-[address] [facility] Comment on above: Performed By: #### L 501.2450, L100.0100, L500.4050 ####[facility] [address] [place], [address] Potassium [Moles/Vol] 4.0 mmol/L Normal 3.3-5.1 [facility] Comment on above: Performed By: #### L 501.2450, L100.0100, L500.4050 ####[facility] [address] [place], [address] Sodium [Moles/Vol] 138 mmol/L Normal 133-[address] [facility] Comment on above: Performed By: #### L 501.2450, L100.0100, L500.4050 ####[facility] [address] [place], [address] T PROT 6.7 g/dL Normal 5.9-8.4 [facility] Comment on above: Performed By: #### L 501.2450, L100.0100, L500.4050 ####[facility] [address] [place], [address] Urea nitrogen [Mass/Vol] 27 mg/dL High 4-19 [facility] Comment on above: Performed By: #### L 501.2450, L100.0100, L500.4050 ####[facility] [address] [place], [address] Emergency Department Summary on 04-02-2025 Emergency Department Summary Normal [facility] Eosinophil percentageOrdered By: Nuno Grider on 04-02-2025 Eosinophils/100 WBC (Bld) 1.5 % 0-5 [facility] Erythrocyte distribution wid th ratioOrdered By: Nuno Grider on 04-02-2025 Erythrocyte distribution width (RBC) [Ratio] 16.5 % High 11.6-14.6 [facility] Erythrocyte distribution wid th standard deviationOrdered By: Nuno Grider on 04-02-2025 Erythrocyte distribution width (RBC) [Ratio] 49.7 fl High 35.1-43.9 [facility] Glomerular filtration rate ( GFR) estimation/1.73 sq m using serum, plasma, or whole bOrdered By: Nuno Grider on 04-02-2025 GFR/1.73 sq M.predicted among non-blacks MDRD (S/P/Bld) [Vol rate/Area] 47 mL/min/{1.73_m2} Low >60 [facility] Comment on above: mL/min/1.73m2 CKD-EP I Creatinine Equation (2020) Hematocrit Auto (Bld) [Volum e fraction]Ordered By: Nuno Grider on 04-02-2025 Hematocrit (Bld) [Volume fraction] 28.2 % Low 37-47 [facility] Hemoglobin measurementOrdere d By: Nuno Grider on 04-02-2025 Hemoglobin (Bld) [Mass/Vol] 8.8 g/dL Low 12.0-15.0 [facility] Immature granulocytes/100 WB C Auto (Bld)Ordered By: Nuno Grider on 04-02-2025 Immature granulocytes/100 WBC (Bld) 0.500 % 0.0-0.9 [facility] Comment on above: IG% - Immature Granu locytes (promyelocytes, myelocytes and metamyelocytes) > 1% indicates that a LEFT SHIFT is Present. Laboratory - Chemistry and C hemistry - challengeOrdered By: Nuno Grider on 04-02-2025 AST [Catalytic activity/Vol] 16 U/L <32 [facility] Lipaseon 04-02-2025 Lipase [Catalytic activity/Vol] 23 U/L Normal 13-75 [facility] Comment on above: Result Comment: Stacy pringle note:LIPASE revised reference range effective 23.New Lipase methodology. Expected to produce lower valuesthan the previous assay method.NEW Reference Range: 13 - 75 U/L Performed By: #### L 501.2450, L100.0100, L500.4050 ####[facility] [address] [place], [address] Lipase measurementOrdered By : Nuno Grider on 04-02-2025 Lipase [Catalytic activity/Vol] 23 U/L 13-75 [facility] Comment on above: Please note:LIPASE r evised reference range effective 23. New Lipase methodology. Expected to produce lower values than the previous assay method. NEW Reference Range: 13 - 75 U/L MCV (mean corpuscular volume ) determinationOrdered By: Nuno Grider on 04-02-2025 MCV (RBC) [Entitic vol] 82.7 fL 81-99 [facility] Mean corpuscular hemoglobin (MCH) determinationOrdered By: Nuno Grider on 04-02-2025 MCH (RBC) [Entitic mass] 25.8 pg Low 27.0-32.0 [facility] Mean corpuscular hemoglobin concentration (MCHC) determinationOrdered By: Nuno Grider on 04-02-2025 MCHC (RBC) [Mass/Vol] 31.2 g/dL Low 32-36 [facility] Mean platelet volume determi nationOrdered By: Nuno Grider on 04-02-2025 Platelet mean volume (Bld) [Entitic vol] 9.7 fL 6.2-12.0 [facility] Monocyte percentageOrdered B y: Nuno Grider on 04-02-2025 Monocytes/100 WBC (Bld) 6.6 % 0-10 [facility] Neutrophil percentageOrdered By: Nuno Grider on 04-02-2025 Neutrophils/100 WBC (Bld) 80.4 % High 47-70 [facility] No Panel InformationOrdered By: Nuno Grider on 04-02-2025 16 U/L <32 [facility] Nucleated red blood cell per centageOrdered By: Nuno Grider on 04-02-2025 Nucleated RBC/100 WBC (Bld) [Ratio] 0 % 0-5 [facility] Platelet countOrdered By: Jorge Grider on 04-02-2025 Platelets (Bld) [#/Vol] 154 10*3/uL 150-450 [facility] Potassium measurement (mass/ volume)Ordered By: Nuno Grider on 04-02-2025 Potassium (Unsp spec) [Mass/Vol] 4.0 mmol/L 3.3-5.1 [facility] RBC Auto (Bld) [#/Vol]Ordere d By: Nuno Grider on 04-02-2025 RBC (Bld) [#/Vol] 3.41 10*6/uL Low 4.2-5.4 [facility] Serum creatinine measurement (mass/volume)Ordered By: Nuno Grider on 04-02-2025 Creatinine [Mass/Vol] 1.23 mg/dL High 0.70-1.20 [facility] Serum globulin measurementOr dered By: Nuno Grider on 04-02-2025 Globulin (S) [Mass/Vol] 2.5 g/dL 2.2-4.2 [facility] Serum glucose measurement (m ass/volume)Ordered By: Nuno Grider on 04-02-2025 Glucose [Mass/Vol] 129 mg/dL High 70-[address] [facility] Serum or plasma alanine pizarro otransferase (ALT) measurementOrdered By: Nuno Grider on 04-02-2025 ALT [Catalytic activity/Vol] 14 U/L <35 [facility] Serum or plasma albumin stefania urement (mass/volume)Ordered By: Nuno Grider on 04-02-2025 Albumin [Mass/Vol] 4.2 g/dL 3.4-4.[address] [facility] Serum or plasma albumin/glob ulin mass ratioOrdered By: Nuno Grider on 04-02-2025 Albumin/Globulin [Mass ratio] 1.7 {ratio} 0.9-2.4 [facility] Serum or plasma alkaline anthony sphatase measurementOrdered By: Nuno Grider on 04-02-2025 ALP [Catalytic activity/Vol] 87 U/L 35-104 [facility] Serum or plasma calcium stefania urement (mass/volume)Ordered By: Nuno Grider on 04-02-2025 Calcium [Mass/Vol] 9.6 mg/dL 7.6-11.[address] [facility] Serum or plasma urea nitroge n measurement (mass/volume)Ordered By: Nuno Grider on 04-02-2025 Urea nitrogen [Mass/Vol] 27 mg/dL High 4-19 [facility] Sodium levelOrdered By: Nuno Grider on 04-02-2025 Sodium [Moles/Vol] 138 mmol/L 133-[address] [facility] Total proteinOrdered By: Clari Grider on 04-02-2025 Protein [Mass/Vol] 6.7 g/dL 5.9-8.[address] [facility] Urinalysis, Completeon 04-02 BACTERIA Normal None Seen [facility] Comment on above: Order Comment: THEODORE KAMARA TO SPECIFY Result Comment: @PT DEPARTED ER, OK TO CANCEL BY ELISEO Performed By: #### L 400.0001 ####[facility] [address] [place], [address] BILIRUBIN URINE Normal Negative [facility] Comment on above: Order Comment: THEODORE CTMARGARITO TO SPECIFY Result Comment: @PT DEPARTED ER, OK TO CANCEL BY ELISEO Performed By: #### L 400.0001 ####[facility] [address] [place], [address] Clarity (U) Normal Clear [facility] Comment on above: Order Comment: COLLE CTOR TO SPECIFY Result Comment: @PT DEPARTED ER, OK TO CANCEL BY MHOSTETTLER Performed By: #### L 400.0001 ####[facility] [address] [place], [address] Color (U) Normal Yellow [facility] Comment on above: Order Comment: COLLE CTOR TO SPECIFY Result Comment: @PT DEPARTED ER, OK TO CANCEL BY MHOSTETTLER Performed By: #### L 400.0001 ####[facility] [address] [place], [address] EPI,SQUAMOUS Normal 5-10 [facility] Comment on above: Order Comment: COLLE CTOR TO SPECIFY Result Comment: @PT DEPARTED ER, OK TO CANCEL BY MHOSTETTLER Performed By: #### L 400.0001 ####[facility] [address] [place], [address] GLUCOSE, UR Normal Normal [facility] Comment on above: Order Comment: COLLE CTOR TO SPECIFY Result Comment: @PT DEPARTED ER, OK TO CANCEL BY MHOSTETTLER Performed By: #### L 400.0001 ####[facility] [address] [place], [address] KETONE UR Normal Negative [facility] Comment on above: Order Comment: COLLE CTOR TO SPECIFY Result Comment: @PT DEPARTED ER, OK TO CANCEL BY MHOSTETTLER Performed By: #### L 400.0001 ####[facility] [address] [place], [address] LEUK ESTERASE Normal Negative [facility] Comment on above: Order Comment: COLLE CTOR TO SPECIFY Result Comment: @PT DEPARTED ER, OK TO CANCEL BY MHOSTETTLER Performed By: #### L 400.0001 ####[facility] [address] [place], [address] Mucus Ql (Urine sed) Normal [facility] Comment on above: Order Comment: COLLE CTOR TO SPECIFY Result Comment: @PT DEPARTED ER, OK TO CANCEL BY MHOSTETTLER Performed By: #### L 400.0001 ####[facility] [address] [place], [address] Nitrite Ql (U) Normal Negative [facility] Comment on above: Order Comment: COLLE CTOR TO SPECIFY Result Comment: @PT DEPARTED ER, OK TO CANCEL BY MHOSTETTLER Performed By: #### L 400.0001 ####[facility] [address] [place], [address] OCCULT BLOOD-UR Normal Negative [facility] Comment on above: Order Comment: COLLE CTOR TO SPECIFY Result Comment: @PT DEPARTED ER, OK TO CANCEL BY MHOSTETTLER Performed By: #### L 400.0001 ####[facility] [address] [place], [address] pH UR Normal 5.0 - 8.0 [facility] Comment on above: Order Comment: THEODORE CTOR TO SPECIFY Result Comment: @PT DEPARTED ER, OK TO CANCEL BY MHOSTETTLER Performed By: #### L 400.0001 ####[facility] [address] [place], [address] PROT DIPSTX Normal Negative [facility] Comment on above: Order Comment: COLLE CTOR TO SPECIFY Result Comment: @PT DEPARTED ER, OK TO CANCEL BY MHOSTETTLER Performed By: #### L 400.0001 ####[facility] [address] [place], [address] RBC Normal 0-5 [facility] Comment on above: Order Comment: COLLE CTOR TO SPECIFY Result Comment: @PT DEPARTED ER, OK TO CANCEL BY MHOSTETTLER Performed By: #### L 400.0001 ####[facility] [address] [place], [address] SP.GR. DIPSTX Normal 1.002-1.03 0 [facility] Comment on above: Order Comment: COLLE CTOR TO SPECIFY Result Comment: @PT DEPARTED ER, OK TO CANCEL BY MHOSTETTLER Performed By: #### L 400.0001 ####[facility] [address] [place], [address] UR Preservative Normal [facility] Comment on above: Order Comment: COLLE CTOR TO SPECIFY Result Comment: @PT DEPARTED ER, OK TO CANCEL BY MHOSTETTLER Performed By: #### L 400.0001 ####[facility] [address] [place], [address] UROBILI Normal Normal [facility] Comment on above: Order Comment: COLLE CTOR TO SPECIFY Result Comment: @PT DEPARTED ER, OK TO CANCEL BY MHOSTETTLER Performed By: #### L 400.0001 ####[facility] [address] [place], [address] WBC Normal 0-5 [facility] Comment on above: Order Comment: COLLE CTOR TO SPECIFY Result Comment: @PT DEPARTED ER, OK TO CANCEL BY MHOSTETTLER Performed By: #### L 400.0001 ####[facility] [address] [place], [address] White blood cell (WBC) count Ordered By: Nuno Grider on 04-02-2025 WBC (Bld) [#/Vol] 5.9 10*3/uL 4.4-11.[address] [facility] Echo Transesophageal (GREGORIO)on 03-19-2025 Echo Transesophageal (GREGORIO) Normal [facility] 36on 03-09-2025 36 Order re faxed to [phone] [facility]. [facility] 36 Name of caller: Brice aragon Contact phone number: [phone] Relationship to Patient: [facility] Provider: AURORA Lynn Practice: [facility] Chief Complaint/Reason for Call: Kody called in requesting patient's MRI order be faxed over to them at fax # [phone]. Please be advised Best time of day caller can be reached: Any Patient advised that office/PCP has 24-48 business hours to return their call: N/A [facility] 36on 03-04-2025 36 Call to patient. Renuka domingo notified. Patient Stated will scheduled testing. [facility] 36 We have been unable to reach your patient to schedule their testing. Test Name: EEG 1st Attempt: 03/04 pt stated this will be done at [facility] Office Visiton 03-04-2025 Follow-up visit [id number] Estephania Yo 1955 F Date Provider Department Center 03/04/2025 [id number] [facility] KAILA None Family History Family Status - Relation Status Age at Mother Notes: brain tumor Father Notes: [place] of arteries Level of Service:68064 MD OFFICE/OUTPATIENT ESTABLISHED LOW MDM 20 MIN Reason for Visit and Comments: Follow-up [419838] Multiple Sclerosis [162] [facility] Progress Noteon 03-04-2025 Progress Note Visit type: [...] daily., Disp: 9 (more content not included)... [place] [address]on 03-02-2025 36 Refused as it has be en over a year since her last visit. Will refill at her upcoming appt. [place] [address] Last ov- 12/14/23 Next ov- 03/04/25 [facility] 36on 02-25-2025 36 patient has been not ified of providers message. Appointment has been scheduled [place] [address] Patient's last offic e visit was over a year ago; she needs a follow up before I can order more refills. Thank you. [place] [address]on 02-24-2025 36 Forwarding to [facility] for review and advice. Called pharmacy spoke with application technician who stated patient picked up refill on January 18. [place] [address] Medication name: staci lofen (Lioresal) 20 MG [...] to picking up the medication: Yes Normal [facility] Cardiology Visit Reporton Cardiology Visit Report Normal [facility] Thoracic Spine 2 Viewson Thoracic Spine 2 Views Normal [facility] Discharge Instructionon 12-21 Discharge Instruction Normal [facility] Activated partial thrombopla stin time (aPTT) in platelet poor plasma by coagulation aOrdered By: Sommer Resendiz on 01-12-2025 aPTT Coag (PPP) [Time] 76.6 s High 24.1-36.2 [facility] Partial Thromboplast Timeon 01-12-2025 aPTT Coag (Bld) [Time] 76.6 s High 24.1-36.2 [facility] Comment on above: Performed By: #### L 300.4310 ####[facility] [address] [place], [place], [id number] aPTT Coag (Bld) [Time] 60.2 s High 24.1-36.2 [facility] Comment on above: Order Comment: Comme nts: time sensitive hep gtt Performed By: #### L 300.4310 ####[facility] [address] [facility] [place], [place], [id number] Absolute lymphocyte countOrd ered By: Sommer Resendiz on 01-11-2025 Lymphocytes Auto (Unsp spec) [#/Vol] 1.07 10*3/uL 0.83-4.51 [facility] Absolute neutrophil countOrd ered By: Sommer Resendiz on 01-11-2025 Neutrophils (Bld) [#/Vol] 3.6 10*3/uL 2.0-7.7 [facility] Albumin to globulin ratioOrd ered By: Sommer Resendiz on 01-11-2025 Albumin/Globulin [Mass ratio] 0.8 {ratio} Low 0.9-2.4 [facility] Automated lymphocyte count a s percentage of total leukocytesOrdered By: Sommer Resendiz on 01-11-2025 Lymphocytes/100 WBC Auto (Unsp spec) 20.5 % 19 [facility] Basophil percentageOrdered B y: Sommer Resendiz on 01-11-2025 Basophils/100 WBC (Bld) 0.4 % 0-1 [facility] Bilirubin, totalOrdered By: Sommer Resendiz on 01-11-2025 Bilirubin [Mass/Vol] 0.30 mg/dL 0.20-1.00 [facility] Comment on above: For patients on eltr ombopag therapy, use of Dimension [place] TBIL is not recommended. Blood urea nitrogen (BUN)/cr eatinine ratioOrdered By: Sommer Resendiz on 01-11-2025 Urea nitrogen/Creatinine [Mass ratio] 20.8 mg/mg High 10-20 [facility] CBC W/Diff, Automatedon 12-21 Absolute Lymph 1.07 X10 3/uL Normal 0.83-4.51 [facility] Comment on above: Performed By: #### L 501.4020, L500.4050, L100.0100 ####[facility] [address] [place], [address] Absolute Neut 3.6 X10 3/uL Normal 2.0-7.7 [facility] Comment on above: Performed By: #### L 501.4020, L500.4050, L100.0100 ####[facility] [address] [place], [address] Basophils/100 WBC (Bld) 0.4 % Normal 0-1 [facility] Comment on above: Performed By: #### L 501.4020, L500.4050, L100.0100 ####[facility] [address] [place], [address] Eosinophils/100 WBC (Bld) 1.0 % Normal 0-5 [facility] Comment on above: Performed By: #### L 501.4020, L500.4050, L100.0100 ####[facility] [address] [place], [address] Erythrocyte distribution width (RBC) [Ratio] 14.9 % High 11.6-14.6 [facility] Comment on above: Performed By: #### L 501.4020, L500.4050, L100.0100 ####[facility] [address] [place], [address] Hematocrit (Bld) [Volume fraction] 39.1 % Normal 37-47 [facility] Comment on above: Performed By: #### L 501.4020, L500.4050, L100.0100 ####[facility] [address] [place], [address] Hemoglobin (Bld) [Mass/Vol] 12.5 g/dL Normal 12.0-15.0 [facility] Comment on above: Performed By: #### L 501.4020, L500.4050, L100.0100 ####[facility] [address] [place], [address] IG% 0.400 Normal 0.0-0.9 [facility] Comment on above: Result Comment: IG% - Immature Granulocytes (promyelocytes, myelocytes andmetamyelocytes) > 1% indicates that a LEFT SHIFT is Present. Performed By: #### L 501.4020, L500.4050, L100.0100 ####[facility] [address] [place], [address] Lymphocytes/100 WBC (Bld) 20.5 % Normal 19-41 [facility] Comment on above: Performed By: #### L 501.4020, L500.4050, L100.0100 ####[facility] [address] [place], [address] MCH (RBC) [Entitic mass] 26.4 pg Low 27.0-32.0 [facility] Comment on above: Performed By: #### L 501.4020, L500.4050, L100.0100 ####[facility] [address] [place], [address] MCHC (RBC) [Mass/Vol] 32.0 g/dL Normal 32-36 [facility] Comment on above: Performed By: #### L 501.4020, L500.4050, L100.0100 ####[facility] [address] [place], [address] MCV (RBC) [Entitic vol] 82.7 fL Normal 81-99 [facility] Comment on above: Performed By: #### L 501.4020, L500.4050, L100.0100 ####[facility] [address] [place], [address] Monocytes/100 WBC (Bld) 9.4 % Normal 0-10 [facility] Comment on above: Performed By: #### L 501.4020, L500.4050, L100.0100 ####[facility] [address] [place], [address] Neutrophils/100 WBC (Bld) 68.3 % Normal 47-70 [facility] Comment on above: Performed By: #### L 501.4020, L500.4050, L100.0100 ####[facility] [address] [place], [address] Nucleated RBC (Bld) [#/Vol] 0 10*3/uL Normal 0-5 [facility] Comment on above: Performed By: #### L 501.4020, L500.4050, L100.0100 ####[facility] [address] [place], [address] Platelet mean volume (Bld) [Entitic vol] 10.4 fL Normal 6.2-12.0 [facility] Comment on above: Performed By: #### L 501.4020, L500.4050, L100.0100 ####[facility] [address] [place], [address] Platelets (Bld) [#/Vol] 158 10*3/uL Normal 150-450 [facility] Comment on above: Performed By: #### L 501.4020, L500.4050, L100.0100 ####[facility] [address] [place], [address] RBC (Bld) [#/Vol] 4.73 10*6/uL Normal 4.2-5.4 [facility] Comment on above: Performed By: #### L 501.4020, L500.4050, L100.0100 ####[facility] [address] [place], [address] RDW SD 45.2 fl High 35.1-43.9 [facility] Comment on above: Performed By: #### L 501.4020, L500.4050, L100.0100 ####[facility] [address] [place], [address] WBC (Bld) [#/Vol] 5.2 10*3/uL Normal 4.4-11.[address] [facility] Comment on above: Performed By: #### L 501.4020, L500.4050, L100.0100 ####[facility] [address] [place], [address] Carbon dioxide measurementOr dered By: Sommer Resendiz on 01-11-2025 CO2 [Moles/Vol] 25.0 mmol/L 21.0-32.0 [facility] Chloride measurementOrdered By: Sommer Resendiz on 01-11-2025 Chloride [Moles/Vol] 101 mmol/L 98-107 [facility] Comprehensive Metabolic Prof ilon 01-11-2025 Albumin [Mass/Vol] 3.4 g/dL Normal 3.2-5.[address] [facility] Comment on above: Order Comment: Comme nts: SPECIMEN #2'TROP' Serial specimen #1, #2 or #3: 2 Performed By: #### L 501.4020, L500.4050, L100.0100 ####[facility] [address] [place], [address] Albumin/Globulin [Mass ratio] 0.8 {ratio} Low 0.9-2.4 [facility] Comment on above: Order Comment: Comme nts: SPECIMEN #2'TROP' Serial specimen #1, #2 or #3: 2 Performed By: #### L 501.4020, L500.4050, L100.0100 ####[facility] [address] [place], [address] ALK P 182 U/L High 45-117 [facility] Comment on above: Order Comment: Comme nts: SPECIMEN #2'TROP' Serial specimen #1, #2 or #3: 2 Performed By: #### L 501.4020, L500.4050, L100.0100 ####[facility] [address] [place], [address] ALT [Catalytic activity/Vol] 22 U/L Normal 13-56 [facility] Comment on above: Order Comment: Comme nts: SPECIMEN #2'TROP' Serial specimen #1, #2 or #3: 2 Performed By: #### L 501.4020, L500.4050, L100.0100 ####[facility] [address] [place], [address] AST [Catalytic activity/Vol] 27 U/L Normal 15-37 [facility] Comment on above: Order Comment: Comme nts: SPECIMEN #2'TROP' Serial specimen #1, #2 or #3: 2 Performed By: #### L 501.4020, L500.4050, L100.0100 ####[facility] [address] [place], [address] Bilirubin [Mass/Vol] 0.30 mg/dL Normal 0.20-1.00 [facility] Comment on above: Order Comment: Comme nts: SPECIMEN #2'TROP' Serial specimen #1, #2 or #3: 2 Result Comment: For patients on eltrombopag therapy, use of Dimension [place] TBIL is not recommended. Performed By: #### L 501.4020, L500.4050, L100.0100 ####[facility] [address] [place], [address] BUN/CRE 20.8 RATIO High 10-20 [facility] Comment on above: Order Comment: Comme nts: SPECIMEN #2'TROP' Serial specimen #1, #2 or #3: 2 Performed By: #### L 501.4020, L500.4050, L100.0100 ####[facility] [address] [place], [address] CA,Total 9.3 mg/dL Normal 8.5-10.1 [facility] Comment on above: Order Comment: Comme nts: SPECIMEN #2'TROP' Serial specimen #1, #2 or #3: 2 Performed By: #### L 501.4020, L500.4050, L100.0100 ####[facility] [address] [place], [address] Chloride [Moles/Vol] 101 mmol/L Normal 98-107 [facility] Comment on above: Order Comment: Comme nts: SPECIMEN #2'TROP' Serial specimen #1, #2 or #3: 2 Performed By: #### L 501.4020, L500.4050, L100.0100 ####[facility] [address] [place], [address] CO2 [Moles/Vol] 25.0 mmol/L Normal 21.0-32.0 [facility] Comment on above: Order Comment: Comme nts: SPECIMEN #2'TROP' Serial specimen #1, #2 or #3: 2 Performed By: #### L 501.4020, L500.4050, L100.0100 ####[facility] [address] [place], [address] Creatinine [Mass/Vol] 1.06 mg/dL High 0.55-1.02 [facility] Comment on above: Order Comment: Comme nts: SPECIMEN #2'TROP' Serial specimen #1, #2 or #3: 2 Result Comment: The validity of the calculated GFR GFRAA in patients over70 years has not been determined. Clinical correlation isessential. Performed By: #### L 501.4020, L500.4050, L100.0100 ####[facility] [address] [place], [address] ECRCL 39.37 ml/min Normal [facility] Comment on above: Order Comment: Comme nts: SPECIMEN #2'TROP' Serial specimen #1, #2 or #3: 2 Performed By: #### L 501.4020, L500.4050, L100.0100 ####[facility] [address] [place], [address] EST GFR - AA 66 mL/min Normal >60 [facility] Comment on above: Order Comment: Comme nts: SPECIMEN #2'TROP' Serial specimen #1, #2 or #3: 2 Result Comment: Afri can M[place]gasque GFR Calc Performed By: #### L 501.4020, L500.4050, L100.0100 ####[facility] [address] [place], [address] GAP 8 Normal 5-15 [facility] Comment on above: Order Comment: Comme nts: SPECIMEN #2'TROP' Serial specimen #1, #2 or #3: 2 Performed By: #### L 501.4020, L500.4050, L100.0100 ####[facility] [address] [place], [address] GFR/1.73 sq M.predicted among non-blacks MDRD (S/P/Bld) [Vol rate/Area] 54 mL/min/{1.73_m2} Low >60 [facility] Comment on above: Order Comment: Comme nts: SPECIMEN #2'TROP' Serial specimen #1, #2 or #3: 2 Result Comment: Non- GFR Calc Performed By: #### L 501.4020, L500.4050, L100.0100 ####[facility] [address] [place], [address] Globulin (S) [Mass/Vol] 4.0 g/dL Normal 2.2-4.2 [facility] Comment on above: Order Comment: Comme nts: SPECIMEN #2'TROP' Serial specimen #1, #2 or #3: 2 Performed By: #### L 501.4020, L500.4050, L100.0100 ####[facility] [address] [place], [address] Glucose [Mass/Vol] 106 mg/dL Normal 74-[address] [facility] Comment on above: Order Comment: Comme nts: SPECIMEN #2'TROP' Serial specimen #1, #2 or #3: 2 Result Comment: Fast ing Glucose result from 100 to 125 mg/dLsuggests IMPAIRED HOMEOSTASIS per A.D.A. criteria. Performed By: #### L 501.4020, L500.4050, L100.0100 ####[facility] [address] [place], [address] Potassium [Moles/Vol] 4.2 mmol/L Normal 3.5-5.1 [facility] Comment on above: Order Comment: Comme nts: SPECIMEN #2'TROP' Serial specimen #1, #2 or #3: 2 Performed By: #### L 501.4020, L500.4050, L100.0100 ####[facility] [address] [place], [address] Sodium [Moles/Vol] 135 mmol/L Low 136-[address] [facility] Comment on above: Order Comment: Comme nts: SPECIMEN #2'TROP' Serial specimen #1, #2 or #3: 2 Performed By: #### L 501.4020, L500.4050, L100.0100 ####[facility] [address] [place], [address] T PROT 7.4 g/dL Normal 6.4-8.2 [facility] Comment on above: Order Comment: Comme nts: SPECIMEN #2'TROP' Serial specimen #1, #2 or #3: 2 Performed By: #### L 501.4020, L500.4050, L100.0100 ####[facility] [address] [place], [address] Urea nitrogen [Mass/Vol] 22 mg/dL High 7-18 [facility] Comment on above: Order Comment: Comme nts: SPECIMEN #2'TROP' Serial specimen #1, #2 or #3: 2 Performed By: #### L 501.4020, L500.4050, L100.0100 ####[facility] [address] [place], [address] Consultation - Cardiologyon 01-11-2025 Consultation - Cardiology Normal [facility] Echo Completeon 01-11-2025 Echo Complete Normal [facility] Eosinophil percentageOrdered By: White on 01-11-2025 Eosinophils/100 WBC (Bld) 1.0 % 0-5 [facility] Erythrocyte distribution wid th ratioOrdered By: White on 01-11-2025 Erythrocyte distribution width (RBC) [Ratio] 14.9 % High 11.6-14.6 [facility] Erythrocyte distribution wid th standard deviationOrdered By: White on 01-11-2025 Erythrocyte distribution width (RBC) [Ratio] 45.2 fl High 35.1-43.9 [facility] Glomerular filtration rate ( GFR) estimationOrdered By: Sommer Resendiz on 01-11-2025 GFR/1.73 sq M.predicted among non-blacks MDRD (S/P/Bld) [Vol rate/Area] 54 mL/min/{1.73_m2} Low >60 [facility] Comment on above: Non- GFR Calc Glucose measurementOrdered B y: Sommer Resendiz on 01-11-2025 Glucose [Mass/Vol] 106 mg/dL 74-[address] [facility] Comment on above: Fasting Glucose resu lt from 100 to 125 mg/dL suggests IMPAIRED HOMEOSTASIS per A.D.A. criteria. Hematocrit Auto (Bld) [Volum e fraction]Ordered By: Sommer Resendiz on 01-11-2025 Hematocrit (Bld) [Volume fraction] 39.1 % 37-47 [facility] Hemoglobin measurementOrdere d By: Sommer Resendiz on 01-11-2025 Hemoglobin (Bld) [Mass/Vol] 12.5 g/dL 12.0-15.0 [facility] Immature granulocytes/100 WB C Auto (Bld)Ordered By: Sommer Resendiz on 01-11-2025 Immature granulocytes/100 WBC (Bld) 0.400 % 0.0-0.9 [facility] Comment on above: IG% - Immature Granu locytes (promyelocytes, myelocytes and metamyelocytes) > 1% indicates that a LEFT SHIFT is Present. International normalized rat io (INR) calculationOrdered By: Benjy Flores on 01-11-2025 INR Coag (Bld) [Relative time] 1.0 {INR} [facility] L501.4020on 01-11-2025 TROPONIN-I HS 1688 pg/mL Invalid Interpretation Code 3.0-54.0 [facility] Comment on above: Order Comment: Comme nts: SPECIMEN #3'TROP' Serial specimen #1, #2 or #3: 3 Result Comment: Crit ical Result(s) Called at: 10:12:22 01/11/2025 by:Joana Salazar to Fatou. Results read back by same. Please Note: New Test Units and Gender Specific Reference Ranges. For more information see Policy Stat Procedure [place] High Sensitivity Troponin (TNIH) and attachments. Performed By: #### L 501.4020 ####[facility] [address] [place], [address] TROPONIN-I HS 1841 pg/mL Invalid Interpretation Code 3.0-54.0 [facility] Comment on above: Order Comment: Comme nts: SPECIMEN #2'TROP' Serial specimen #1, #2 or #3: 2 Result Comment: Crit ical Result(s) Called at: 06:12:52 01/11/2025 by:Joana Salazar to [place]. Results read back by same. Please Note: New Test Units and Gender Specific Reference Ranges. For more information see Policy Stat Procedure [place] High Sensitivity Troponin (TNIH) and attachments. Performed By: #### L 501.4020, L500.4050, L100.0100 ####[facility] [address] [place], [address] TROPONIN-I HS 1798 pg/mL Invalid Interpretation Code 3.0-54.0 [facility] Comment on above: Order Comment: 'TROP ' Serial specimen #1, #2 or #3: 1 Result Comment: Crit ical Result(s) Called at: 04:22:19 01/11/2025 by:LORENA KENDALL TO EVERT FAY. Results read back by same. Please Note: New Test Units and Gender Specific Reference Ranges. For more information see Policy Stat Procedure [place] High Sensitivity Troponin (TNIH) and attachments. Performed By: #### L 501.4020 ####[facility] [address] [place], [address] Laboratory - Chemistry and C hemistry - challengeOrdered By: Sommer Resendiz on 01-11-2025 AST [Catalytic activity/Vol] 27 U/L 15-37 [facility] M100.019on 01-11-2025 M100.019 Negative Normal [facility] Comment on above: Performed By: #### M 100.019 ####[facility] [address] [place], [address] MCV (mean corpuscular volume ) determinationOrdered By: Sommer White on 01-11-2025 MCV (RBC) [Entitic vol] 82.7 fL 81-99 [facility] Magnesiumon 01-11-2025 Magnesium [Mass/Vol] 2.0 mg/dL Normal 1.6-2.6 [facility] Comment on above: Order Comment: Comme nts: may add to ED labs Performed By: #### L 757.520 ####[facility] [address] [place], [address] Mean corpuscular hemoglobin (MCH) determinationOrdered By: [facility] White on 01-11-2025 MCH (RBC) [Entitic mass] 26.4 pg Low 27.0-32.0 [facility] Mean corpuscular hemoglobin concentration (MCHC) determinationOrdered By: Sommer White on 01-11-2025 MCHC (RBC) [Mass/Vol] 32.0 g/dL 32-36 [facility] Mean platelet volume determi nationOrdered By: [facility] White on 01-11-2025 Platelet mean volume (Bld) [Entitic vol] 10.4 fL 6.2-12.0 [facility] Monocyte percentageOrdered B y: Sommer White on 01-11-2025 Monocytes/100 WBC (Bld) 9.4 % 0-10 [facility] Neutrophil percentageOrdered By: [facility] White on 01-11-2025 Neutrophils/100 WBC (Bld) 68.3 % 47-70 [facility] No Panel InformationOrdered By: [facility] White on 01-11-2025 27 U/L 15-37 [facility] Nucleated red blood cell per centageOrdered By: [facility] White on 01-11-2025 Nucleated RBC/100 WBC (Bld) [Ratio] 0 % 0-5 [facility] Partial Thromboplast Timeon 01-11-2025 aPTT Coag (Bld) [Time] 64.4 s High 24.1-36.2 [facility] Comment on above: Order Comment: Comme nts: time sensitive hep gtt Performed By: #### L 652.4314 ####[facility] [address] [place], [address] aPTT Coag (Bld) [Time] 76.9 s High 24.1-36.2 [facility] Comment on above: Performed By: #### L 300.4310 ####[facility] [address], [address] aPTT Coag (Bld) [Time] 53.2 s High 24.1-36.2 [facility] Comment on above: Order Comment: Comme nts: heparin gtt Performed By: #### L 300.4310 ####[facility] [address] [place], [address] aPTT Coag (Bld) [Time] 28.3 s Normal 24.1-36.2 [facility] Comment on above: Performed By: #### L 300.3900, L300.4310 ####[facility] [address] [place], [address] Platelet countOrdered By: Lissa Resendiz on 01-11-2025 Platelets (Bld) [#/Vol] 158 10*3/uL 150-450 [facility] Potassium measurementOrdered By: Sommer Resendiz on 01-11-2025 Potassium [Moles/Vol] 4.2 mmol/L 3.5-5.1 [facility] Prothrombin Time w/INRon INR Coag (PPP) [Relative time] 1.0 {INR} Normal [facility] Comment on above: Performed By: #### L 300.3900, L300.4310 ####[facility] [address] [place], [address] PT Coag (PPP) [Time] 12.9 s Normal 11.7-14.9 [facility] Comment on above: Performed By: #### L 300.3900, L300.4310 ####[facility] [address] [place], [address] Prothrombin timeOrdered By: Benjy Flores on 01-11-2025 PT Coag (PPP) [Time] 12.9 s 11.7-14.9 [facility] RBC Auto (Bld) [#/Vol]Ordere d By: Sommer Resendiz on 01-11-2025 RBC (Bld) [#/Vol] 4.73 10*6/uL 4.2-5.4 [facility] RESPIRATORY PANEL MOLECULARo n 01-11-2025 RP PANEL Normal [facility] Comment on above: Performed By: #### M 100.638 ####[facility] [address] [place], [address] Ztgh-sml-0Sqxmpoq By: Sommer Resendiz on 01-11-2025 SARS-CoV-2 (COVID-19) RNA JAYDON+probe Ql (Unsp spec) [facility] Serum anion gap measurementO rdered By: Sommer Resendiz on 01-11-2025 Anion gap [Moles/Vol] 8 mmol/L 5-15 [facility] Serum globulin measurementOr dered By: Sommer Resendiz on 01-11-2025 Globulin (S) [Mass/Vol] 4.0 g/dL 2.2-4.2 [facility] Serum or plasma alanine pizarro otransferase (ALT) measurementOrdered By: Sommer Resendiz on 01-11-2025 ALT [Catalytic activity/Vol] 22 U/L 13-56 [facility] Serum or plasma albumin stefania urement (mass/volume)Ordered By: Sommer Resendiz on 01-11-2025 Albumin [Mass/Vol] 3.4 g/dL 3.2-5.[address] [facility] Serum or plasma alkaline anthony sphatase measurementOrdered By: Sommer Resendiz on 01-11-2025 ALP [Catalytic activity/Vol] 182 U/L High 45-117 [facility] Serum or plasma calcium stefania urement (mass/volume)Ordered By: Sommer Resendiz on 01-11-2025 Calcium [Mass/Vol] 9.3 mg/dL 8.5-10.[address] [facility] Serum or plasma creatinine m easurement (mass/volume)Ordered By: Sommer Resendiz on 01-11-2025 Creatinine [Mass/Vol] 1.06 mg/dL High 0.55-1.02 [facility] Comment on above: The validity of the calculated GFR & GFRAA in patients over 70 years has not been determined. Clinical correlation is essential. Serum or plasma urea nitroge n measurement (mass/volume)Ordered By: Sommer Resendiz on 01-11-2025 Urea nitrogen [Mass/Vol] 22 mg/dL High 7-18 [facility] Sodium levelOrdered By: Cynthia mn Martín on 01-11-2025 Sodium [Moles/Vol] 135 mmol/L Low 136-[address] [facility] Total proteinOrdered By: Julian umn Martín on 01-11-2025 Protein [Mass/Vol] 7.4 g/dL 6.4-8.[address] [facility] Troponin IOrdered By: Sommer Resendiz on 01-11-2025 Troponin I 1688 pg/mL High 3.0-54.0 [facility] Comment on above: Critical Result(s) C alled at: 10:12:22 01/11/2025 by: Joana Lainez. Results read back by same. Please Note: New Test Units and Gender Specific Reference Ranges. For more information see Policy Stat Procedure [place] High Sensitivity Troponin (TNIH) and attachments. White blood cell (WBC) count Ordered By: Sommer Resendiz on 01-11-2025 WBC (Bld) [#/Vol] 5.2 10*3/uL 4.4-11.[address] [facility] 12 Lead EKGon 01-10-2025 12 Lead EKG Normal [facility] BNP (brain natriuretic pepti de measurement)Ordered By: Benjy Flores on 01-10-2025 Natriuretic peptide B (Bld) [Mass/Vol] 411.9 pg/mL High 0-100 [facility] BNP,B-Type NATRIURETIC PEPTI Hodan 01-10-2025 Natriuretic peptide B (Bld) [Mass/Vol] 411.9 pg/mL High 0-100 [facility] Comment on above: Performed By: #### L 503.6620 ####[facility] [address] [place], [place], [id number] Basic Metabolic Profile (BMP )on 01-10-2025 BUN/CRE 20.4 RATIO High 10-20 [facility] Comment on above: Order Comment: 'TROP ' Serial specimen #1, #2 or #3: 1 Performed By: #### L 100.0100, L501.4020, L500.2500 ####[facility] [address] [place], [address] CA,Total 9.5 mg/dL Normal 8.5-10.1 [facility] Comment on above: Order Comment: 'TROP ' Serial specimen #1, #2 or #3: 1 Performed By: #### L 100.0100, L501.4020, L500.2500 ####[facility] [address] [place], [address] Chloride [Moles/Vol] 101 mmol/L Normal 98-107 [facility] Comment on above: Order Comment: 'TROP ' Serial specimen #1, #2 or #3: 1 Performed By: #### L 100.0100, L501.4020, L500.2500 ####[facility] [address] [place], [address] CO2 [Moles/Vol] 22.0 mmol/L Normal 21.0-32.0 [facility] Comment on above: Order Comment: 'TROP ' Serial specimen #1, #2 or #3: 1 Performed By: #### L 100.0100, L501.4020, L500.2500 ####[facility] [address] [place], [address] Creatinine [Mass/Vol] 1.08 mg/dL High 0.55-1.02 [facility] Comment on above: Order Comment: 'TROP ' Serial specimen #1, #2 or #3: 1 Result Comment: The validity of the calculated GFR GFRAA in patients over70 years has not been determined. Clinical correlation isessential. Performed By: #### L 100.0100, L501.4020, L500.2500 ####[facility] [address] [place], [address] ECRCL 40.02 ml/min Normal [facility] Comment on above: Order Comment: 'TROP ' Serial specimen #1, #2 or #3: 1 Performed By: #### L 100.0100, L501.4020, L500.2500 ####[facility] [address] [place], [address] EST GFR - AA 64 mL/min Normal >60 [facility] Comment on above: Order Comment: 'TROP ' Serial specimen #1, #2 or #3: 1 Result Comment: Afri can [place] GFR Calc Performed By: #### L 100.0100, L501.4020, L500.2500 ####[facility] [address] [place], [address] GAP 11 Normal 5-15 [facility] Comment on above: Order Comment: 'TROP ' Serial specimen #1, #2 or #3: 1 Performed By: #### L 100.0100, L501.4020, L500.2500 ####[facility] [address] [place], [address] GFR/1.73 sq M.predicted among non-blacks MDRD (S/P/Bld) [Vol rate/Area] 53 mL/min/{1.73_m2} Low >60 [facility] Comment on above: Order Comment: 'TROP ' Serial specimen #1, #2 or #3: 1 Result Comment: Non- GFR Calc Performed By: #### L 100.0100, L501.4020, L500.2500 ####[facility] [address] [place], [address] Glucose [Mass/Vol] 114 mg/dL High 74-[address] [facility] Comment on above: Order Comment: 'TROP ' Serial specimen #1, #2 or #3: 1 Result Comment: Fast ing Glucose result from 100 to 125 mg/dLsuggests IMPAIRED HOMEOSTASIS per A.D.A. criteria. Performed By: #### L 100.0100, L501.4020, L500.2500 ####[facility] [address] [place], [place], [address] Potassium [Moles/Vol] 3.8 mmol/L Normal 3.5-5.1 [facility] Comment on above: Order Comment: 'TROP ' Serial specimen #1, #2 or #3: 1 Performed By: #### L 100.0100, L501.4020, L500.2500 ####[facility] [address] [place], [address] Sodium [Moles/Vol] 134 mmol/L Low 136-[address] [facility] Comment on above: Order Comment: 'TROP ' Serial specimen #1, #2 or #3: 1 Performed By: #### L 100.0100, L501.4020, L500.2500 ####[facility] [address] [place], [address] Urea nitrogen [Mass/Vol] 22 mg/dL High 7-18 [facility] Comment on above: Order Comment: 'TROP ' Serial specimen #1, #2 or #3: 1 Performed By: #### L 100.0100, L501.4020, L500.2500 ####[facility] [address] [place], [address] Brain/Head without Contrasto n 01-10-2025 Brain/Head without Contrast Normal [facility] CBC W/Diff, Automatedon - Absolute Lymph 0.72 X10 3/uL Low 0.83-4.51 [facility] Comment on above: Performed By: #### L 100.0100, L501.4020, L500.2500 ####[facility] [address] [place], [address] Absolute Neut 5.9 X10 3/uL Normal 2.0-7.7 [facility] Comment on above: Performed By: #### L 100.0100, L501.4020, L500.2500 ####[facility] [address] [place], [address] Basophils/100 WBC (Bld) 0.4 % Normal 0-1 [facility] Comment on above: Performed By: #### L 100.0100, L501.4020, L500.2500 ####[facility] [address] [place], [address] Eosinophils/100 WBC (Bld) 1.4 % Normal 0-5 [facility] Comment on above: Performed By: #### L 100.0100, L501.4020, L500.2500 ####[facility] [address] [place], [address] Erythrocyte distribution width (RBC) [Ratio] 14.9 % High 11.6-14.6 [facility] Comment on above: Performed By: #### L 100.0100, L501.4020, L500.2500 ####[facility] [address] [place], [address] Hematocrit (Bld) [Volume fraction] 40.1 % Normal 37-47 [facility] Comment on above: Performed By: #### L 100.0100, L501.4020, L500.2500 ####[facility] [address] [place], [address] Hemoglobin (Bld) [Mass/Vol] 13.1 g/dL Normal 12.0-15.0 [facility] Comment on above: Performed By: #### L 100.0100, L501.4020, L500.2500 ####[facility] [address] [place], [address] IG% 0.400 Normal 0.0-0.9 [facility] Comment on above: Result Comment: IG% - Immature Granulocytes (promyelocytes, myelocytes andmetamyelocytes) > 1% indicates that a LEFT SHIFT is Present. Performed By: #### L 100.0100, L501.4020, L500.2500 ####[facility] [address] [place], [address] Lymphocytes/100 WBC (Bld) 9.8 % Low 19-41 [facility] Comment on above: Performed By: #### L 100.0100, L501.4020, L500.2500 ####[facility] [address] [place], [address] MCH (RBC) [Entitic mass] 26.6 pg Low 27.0-32.0 [facility] Comment on above: Performed By: #### L 100.0100, L501.4020, L500.2500 ####[facility] [address] [place], [address] MCHC (RBC) [Mass/Vol] 32.7 g/dL Normal 32-36 [facility] Comment on above: Performed By: #### L 100.0100, L501.4020, L500.2500 ####[facility] [address] [place], [address] MCV (RBC) [Entitic vol] 81.5 fL Normal 81-99 [facility] Comment on above: Performed By: #### L 100.0100, L501.4020, L500.2500 ####[facility] [address] [place], [address] Monocytes/100 WBC (Bld) 8.0 % Normal 0-10 [facility] Comment on above: Performed By: #### L 100.0100, L501.4020, L500.2500 ####[facility] [address] [place], [address] Neutrophils/100 WBC (Bld) 80.0 % High 47-70 [facility] Comment on above: Performed By: #### L 100.0100, L501.4020, L500.2500 ####[facility] [address] [place], [address] Nucleated RBC (Bld) [#/Vol] 0 10*3/uL Normal 0-5 [facility] Comment on above: Performed By: #### L 100.0100, L501.4020, L500.2500 ####[facility] [address] [place], [address] Platelet mean volume (Bld) [Entitic vol] 9.8 fL Normal 6.2-12.0 [facility] Comment on above: Performed By: #### L 100.0100, L501.4020, L500.2500 ####[facility] [address] [place], [address] Platelets (Bld) [#/Vol] 147 10*3/uL Low 150-450 [facility] Comment on above: Performed By: #### L 100.0100, L501.4020, L500.2500 ####[facility] [address] [place], [address] RBC (Bld) [#/Vol] 4.92 10*6/uL Normal 4.2-5.4 [facility] Comment on above: Performed By: #### L 100.0100, L501.4020, L500.2500 ####[facility] [address] [place], [address] RDW SD 44.3 fl High 35.1-43.9 [facility] Comment on above: Performed By: #### L 100.0100, L501.4020, L500.2500 ####[facility] [address] [place], [address] WBC (Bld) [#/Vol] 7.4 10*3/uL Normal 4.4-11.[address] [facility] Comment on above: Performed By: #### L 100.0100, L501.4020, L500.2500 ####[facility] [address] [place], [address] Chest 1 View (Portable)on Chest 1 View (Portable) Normal [facility] Emergency Department Summary on 01-10-2025 Emergency Department Summary Normal [facility] H AND P Exam - Hospitaliston 01-10-2025 H&P Exam - Hospitalist Normal [facility] L501.4020on 01-10-2025 TROPONIN-I HS 2243 pg/mL Invalid Interpretation Code 3.0-54.0 [facility] Comment on above: Order Comment: 'TROP ' Serial specimen #1, #2 or #3: 1 Result Comment: Crit ical Result(s) Called at: 22:15:33 01/10/2025 by: BERYL to Juventino Rodrigez. Results read back by same. Please Note: New Test Units and Gender Specific Reference Ranges. For more information see Policy Stat Procedure [place] High Sensitivity Troponin (TNIH) and attachments. Performed By: #### L 100.0100, L501.4020, L500.2500 ####[facility] [address] [place], [address] Magnesium measurementOrdered By: Sommer Resendiz on 01-10-2025 Magnesium [Mass/Vol] 2.0 mg/dL 1.6-2.6 [facility] Respiratory pathogens detect ion panel by molecular detection methodOrdered By: Sommer Resendiz on 01-10-2025 Respiratory pathogens DNA and RNA panel JAYDON+probe (Resp) [facility] Pulmonary Visit Reporton Pulmonary Visit Report Normal [facility] Cardiology Visit Reporton Cardiology Visit Report Normal [facility] 12 Lead EKGon 12-17-2024 12 Lead EKG Normal [facility] Basic Metabolic Profile (BMP )on 12-17-2024 BUN/CRE 24.1 RATIO High 10-20 [facility] Comment on above: Order Comment: 1Y Performed By: #### L 503.6005, L500.2500, L100.0500, L501.5425 ####[facility] [address] [place], [address] CA,Total 9.0 mg/dL Normal 8.5-10.1 [facility] Comment on above: Order Comment: 1Y Performed By: #### L 503.6005, L500.2500, L100.0500, L501.5425 ####[facility] [address] [place], [address] Chloride [Moles/Vol] 106 mmol/L Normal 98-107 [facility] Comment on above: Order Comment: 1Y Performed By: #### L 503.6005, L500.2500, L100.0500, L501.5425 ####[facility] [address] [place], [address] CO2 [Moles/Vol] 27.0 mmol/L Normal 21.0-32.0 [facility] Comment on above: Order Comment: 1Y Performed By: #### L 503.6005, L500.2500, L100.0500, L501.5425 ####[facility] [address] [place], [address] Creatinine [Mass/Vol] 1.08 mg/dL High 0.55-1.02 [facility] Comment on above: Order Comment: 1Y Result Comment: The validity of the calculated GFR GFRAA in patients over70 years has not been determined. Clinical correlation isessential. Performed By: #### L 503.6005, L500.2500, L100.0500, L501.5425 ####[facility] [address] [place], [address] ECRCL 40.75 ml/min Normal [facility] Comment on above: Order Comment: 1Y Performed By: #### L 503.6005, L500.2500, L100.0500, L501.5425 ####[facility] [address] [place], [address] EST GFR - AA 64 mL/min Normal >60 [facility] Comment on above: Order Comment: 1Y Result Comment: Afri can Monegasque GFR Calc Performed By: #### L 503.6005, L500.2500, L100.0500, L501.5425 ####[facility] [address] [place], [address] GAP 7 Normal 5-15 [facility] Comment on above: Order Comment: 1Y Performed By: #### L 503.6005, L500.2500, L100.0500, L501.5425 ####[facility] [address] [place], [address] GFR/1.73 sq M.predicted among non-blacks MDRD (S/P/Bld) [Vol rate/Area] 53 mL/min/{1.73_m2} Low >60 [facility] Comment on above: Order Comment: 1Y Result Comment: Non- GFR Calc Performed By: #### L 503.6005, L500.2500, L100.0500, L501.5425 ####[facility] [address] [place], [address] Glucose [Mass/Vol] 96 mg/dL Normal 74-[address] [facility] Comment on above: Order Comment: 1Y Performed By: #### L 503.6005, L500.2500, L100.0500, L501.5425 ####[facility] [address] [place], [address] Potassium [Moles/Vol] 4.4 mmol/L Normal 3.5-5.1 [facility] Comment on above: Order Comment: 1Y Performed By: #### L 503.6005, L500.2500, L100.0500, L501.5425 ####[facility] [address] [place], [address] Sodium [Moles/Vol] 140 mmol/L Normal 136-[address] [facility] Comment on above: Order Comment: 1Y Performed By: #### L 503.6005, L500.2500, L100.0500, L501.5425 ####[facility] [address], [address] Urea nitrogen [Mass/Vol] 26 mg/dL High 7-18 [facility] Comment on above: Order Comment: 1Y Performed By: #### L 503.6005, L500.2500, L100.0500, L501.5425 ####[facility] [address], [address] CBC-Complete Blood Cnt No Di ffon 12-17-2024 Erythrocyte distribution width (RBC) [Ratio] 15.8 % High 11.6-14.6 [facility] Comment on above: Performed By: #### L 503.6005, L500.2500, L100.0500, L501.5425 ####[facility] [address] [place], [address] Hematocrit (Bld) [Volume fraction] 35.3 % Low 37-47 [facility] Comment on above: Performed By: #### L 503.6005, L500.2500, L100.0500, L501.5425 ####[facility] [address], [address] Hemoglobin (Bld) [Mass/Vol] 11.3 g/dL Low 12.0-15.0 [facility] Comment on above: Performed By: #### L 503.6005, L500.2500, L100.0500, L501.5425 ####[facility] [address] [place], [address] MCH (RBC) [Entitic mass] 27.4 pg Normal 27.0-32.0 [facility] Comment on above: Performed By: #### L 503.6005, L500.2500, L100.0500, L501.5425 ####[facility] [address], [address] MCHC (RBC) [Mass/Vol] 32.0 g/dL Normal 32-36 [facility] Comment on above: Performed By: #### L 503.6005, L500.2500, L100.0500, L501.5425 ####[facility] [address] [place], [address] MCV (RBC) [Entitic vol] 85.5 fL Normal 81-99 [facility] Comment on above: Performed By: #### L 503.6005, L500.2500, L100.0500, L501.5425 ####[facility] [address] [place], [address] Platelet mean volume (Bld) [Entitic vol] 9.9 fL Normal 6.2-12.0 [facility] Comment on above: Performed By: #### L 503.6005, L500.2500, L100.0500, L501.5425 ####[facility] [address] [place], [address] Platelets (Bld) [#/Vol] 230 10*3/uL Normal 150-450 [facility] Comment on above: Performed By: #### L 503.6005, L500.2500, L100.0500, L501.5425 ####[facility] [address] [place], [address] RBC (Bld) [#/Vol] 4.13 10*6/uL Low 4.2-5.4 [facility] Comment on above: Performed By: #### L 503.6005, L500.2500, L100.0500, L501.5425 ####[facility] [address] [place], [address] RDW SD 49.2 fl High 35.1-43.9 [facility] Comment on above: Performed By: #### L 503.6005, L500.2500, L100.0500, L501.5425 ####[facility] [address] [place], [address] WBC (Bld) [#/Vol] 8.8 10*3/uL Normal 4.4-11.[address] [facility] Comment on above: Performed By: #### L 503.6005, L500.2500, L100.0500, L501.5425 ####[facility] [address] [place], [address] Carbon dioxide measurementOr dered By: Jeffy Willoughby on 12-17-2024 CO2 [Moles/Vol] 27.0 mmol/L 21.0-32.0 [facility] Chest PA and Lateralon 12-17 Chest PA and Lateral Normal [facility] Chloride measurementOrdered By: Jeffy Willoughby on 12-17-2024 Chloride [Moles/Vol] 106 mmol/L 98-107 [facility] Emergency Department Summary on 12-17-2024 Emergency Department Summary Normal [facility] Erythrocyte distribution wid th ratioOrdered By: Jeffyaura Willoughby on 12-17-2024 Erythrocyte distribution width (RBC) [Ratio] 15.8 % High 11.6-14.6 [facility] Erythrocyte distribution wid th standard deviationOrdered By: Jeffy Willoughby on 12-17-2024 Erythrocyte distribution width (RBC) [Ratio] 49.2 fl High 35.1-43.9 [facility] Glomerular filtration rate ( GFR) estimationOrdered By: Jeffy Willoughby on 12-17-2024 GFR/1.73 sq M.predicted among non-blacks MDRD (S/P/Bld) [Vol rate/Area] 53 mL/min/{1.73_m2} Low >60 [facility] Glucose measurementOrdered B y: Jeffy Willoughby on 12-17-2024 Glucose [Mass/Vol] 96 mg/dL 74-[address] [facility] Hematocrit Auto (Bld) [Volum e fraction]Ordered By: Jeffy Willoughby on 12-17-2024 Hematocrit (Bld) [Volume fraction] 35.3 % Low 37-47 [facility] Hemoglobin measurementOrdere d By: Jeffy Willoughby on 12-17-2024 Hemoglobin (Bld) [Mass/Vol] 11.3 g/dL Low 12.0-15.0 [facility] L501.4020on 12-17-2024 TROPONIN-I HS 23 pg/mL Normal 3.0-54.0 [facility] Comment on above: Result Comment: Plea se Note: New Test Units and Gender Specific Reference Ranges. For more information see Policy Stat Procedure [place] High Sensitivity Troponin (TNIH) and attachments. Performed By: #### L 501.4020 ####[facility] [address] [place], [address] L501.5425on 12-17-2024 TROPONIN-I HS 24 pg/mL Normal 3.0-54.0 [facility] Comment on above: Order Comment: 1Y Result Comment: Plea se Note: New Test Units and Gender Specific Reference Ranges. For more information see Policy Stat Procedure [place] High Sensitivity Troponin (TNIH) and attachments. Performed By: #### L 503.6005, L500.2500, L100.0500, L501.5425 ####[facility] [address] [place], [address] Lactic Acidon 12-17-2024 Lactate [Moles/Vol] 1.5 mmol/L Normal 0.4-1.9 [facility] Comment on above: Order Comment: Y Performed By: #### L 503.6005, L500.2500, L100.0500, L501.5425 ####[facility] [address] [place], [address] MCV (mean corpuscular volume ) determinationOrdered By: Jeffy Willoughby on 12-17-2024 MCV (RBC) [Entitic vol] 85.5 fL 81-99 [facility] Mean corpuscular hemoglobin (MCH) determinationOrdered By: Jeffy Willoughby on 12-17-2024 MCH (RBC) [Entitic mass] 27.4 pg 27.0-32.0 [facility] Platelet countOrdered By: Barrett Willoughby on 12-17-2024 Platelets (Bld) [#/Vol] 230 10*3/uL 150-450 [facility] Potassium measurementOrdered By: Jeffy Willoughby on 12-17-2024 Potassium [Moles/Vol] 4.4 mmol/L 3.5-5.1 [facility] RBC Auto (Bld) [#/Vol]Ordere d By: Jeffy Willoughby on 12-17-2024 RBC (Bld) [#/Vol] 4.13 10*6/uL Low 4.2-5.4 [facility] Serum or plasma calcium stefania urement (mass/volume)Ordered By: Jeffy Willoughby on 12-17-2024 Calcium [Mass/Vol] 9.0 mg/dL 8.5-10.[address] [facility] Serum or plasma creatinine m easurement (mass/volume)Ordered By: Jeffy Wilolughby on 12-17-2024 Creatinine [Mass/Vol] 1.08 mg/dL High 0.55-1.02 [facility] Serum or plasma urea nitroge n measurement (mass/volume)Ordered By: Jeffy Willoughby on 12-17-2024 Urea nitrogen [Mass/Vol] 26 mg/dL High 7-18 [facility] Sodium levelOrdered By: Jeffy Willoughby on 12-17-2024 Sodium [Moles/Vol] 140 mmol/L 136-[address] [facility] Troponin IOrdered By: Jeffy rosario on 12-17-2024 Troponin I 23 pg/mL 3.0-54.0 [facility] White blood cell (WBC) count Ordered By: Jeffy Willoughby on 12-17-2024 WBC (Bld) [#/Vol] 8.8 10*3/uL 4.4-11.[address] [facility] 12 Lead EKGon 12-11-2024 12 Lead EKG Normal [facility] Bilirubin, totalOrdered By: Kofi Weiner on 12-11-2024 Bilirubin [Mass/Vol] 0.30 mg/dL 0.20-1.00 [facility] CBC-Complete Blood Cnt No Di ffon 12-11-2024 Erythrocyte distribution width (RBC) [Ratio] 15.4 % High 11.6-14.6 [facility] Comment on above: Performed By: #### L 500.4050, L100.0500 ####[facility] [address], [address] Hematocrit (Bld) [Volume fraction] 35.3 % Low 37-47 [facility] Comment on above: Performed By: #### L 500.4050, L100.0500 ####[facility] [address] [place], [address] Hemoglobin (Bld) [Mass/Vol] 11.2 g/dL Low 12.0-15.0 [facility] Comment on above: Performed By: #### L 500.4050, L100.0500 ####[facility] [address] [place], [address] MCH (RBC) [Entitic mass] 26.4 pg Low 27.0-32.0 [facility] Comment on above: Performed By: #### L 500.4050, L100.0500 ####[facility] [address] [place], [address] MCHC (RBC) [Mass/Vol] 31.7 g/dL Low 32-36 [facility] Comment on above: Performed By: #### L 500.4050, L100.0500 ####[facility] [address] [place], [address] MCV (RBC) [Entitic vol] 83.3 fL Normal 81-99 [facility] Comment on above: Performed By: #### L 500.4050, L100.0500 ####[facility] [address] [place], [address] Platelet mean volume (Bld) [Entitic vol] 10.0 fL Normal 6.2-12.0 [facility] Comment on above: Performed By: #### L 500.4050, L100.0500 ####[facility] [address] [place], [address] Platelets (Bld) [#/Vol] 197 10*3/uL Normal 150-450 [facility] Comment on above: Performed By: #### L 500.4050, L100.0500 ####[facility] [address] [place], [address] RBC (Bld) [#/Vol] 4.24 10*6/uL Normal 4.2-5.4 [facility] Comment on above: Performed By: #### L 500.4050, L100.0500 ####[facility] [address] [place], [address] RDW SD 46.5 fl High 35.1-43.9 [facility] Comment on above: Performed By: #### L 500.4050, L100.0500 ####[facility] [address] [place], [address] WBC (Bld) [#/Vol] 7.7 10*3/uL Normal 4.4-11.[address] [facility] Comment on above: Performed By: #### L 500.4050, L100.0500 ####[facility] [address] [place], [address] Carbon dioxide measurementOr dered By: Kofi Weiner on 12-11-2024 CO2 [Moles/Vol] 24.0 mmol/L 21.0-32.0 [facility] Cardiac Cath Diagnosticon Cardiac Cath Diagnostic Normal [facility] Chloride measurementOrdered By: Kofi Weiner on 12-11-2024 Chloride [Moles/Vol] 103 mmol/L 98-107 [facility] Comprehensive Metabolic Prof ilon 12-11-2024 Albumin [Mass/Vol] 3.0 g/dL Low 3.2-5.[address] [facility] Comment on above: Performed By: #### L 500.4050, L100.0500 ####[facility] [address] [place], [address] Albumin/Globulin [Mass ratio] 0.9 {ratio} Normal 0.9-2.4 [facility] Comment on above: Performed By: #### L 500.4050, L100.0500 ####[facility] [address] [place], [address] ALK P 123 U/L High 45-117 [facility] Comment on above: Performed By: #### L 500.4050, L100.0500 ####[facility] [address], [address] ALT [Catalytic activity/Vol] 12 U/L Low 13-56 [facility] Comment on above: Performed By: #### L 500.4050, L100.0500 ####[facility] [address], [address] AST [Catalytic activity/Vol] 13 U/L Low 15-37 [facility] Comment on above: Performed By: #### L 500.4050, L100.0500 ####[facility] [address] [place], [address] Bilirubin [Mass/Vol] 0.30 mg/dL Normal 0.20-1.00 [facility] Comment on above: Result Comment: For patients on eltrombopag therapy, use of Dimension [place] TBIL is not recommended. Performed By: #### L 500.4050, L100.0500 ####[facility] [address], [address] BUN/CRE 20.3 RATIO High 10-20 [facility] Comment on above: Performed By: #### L 500.4050, L100.0500 ####[facility] [address] [place], [address] CA,Total 8.9 mg/dL Normal 8.5-10.1 [facility] Comment on above: Performed By: #### L 500.4050, L100.0500 ####[facility] [facility] [address] [place], [address] Chloride [Moles/Vol] 103 mmol/L Normal 98-107 [facility] Comment on above: Performed By: #### L 500.4050, L100.0500 ####[facility] [address] [place], [address] CO2 [Moles/Vol] 24.0 mmol/L Normal 21.0-32.0 [facility] Comment on above: Performed By: #### L 500.4050, L100.0500 ####[facility] [address] [place], [address] Creatinine [Mass/Vol] 1.18 mg/dL High 0.55-1.02 [facility] Comment on above: Result Comment: The validity of the calculated GFR GFRAA in patients over70 years has not been determined. Clinical correlation isessential. Performed By: #### L 500.4050, L100.0500 ####[facility] [address] [place], [address] ECRCL 36.07 ml/min Normal [facility] Comment on above: Performed By: #### L 500.4050, L100.0500 ####[facility] [address] [place], [address] EST GFR - AA 58 mL/min Low >60 [facility] Comment on above: Result Comment: Afri can Monegasque GFR Calc Performed By: #### L 500.4050, L100.0500 ####[facility] [address] [place], [address] GAP 8 Normal 5-15 [facility] Comment on above: Performed By: #### L 500.4050, L100.0500 ####[facility] [address] [place], [address] GFR/1.73 sq M.predicted among non-blacks MDRD (S/P/Bld) [Vol rate/Area] 48 mL/min/{1.73_m2} Low >60 [facility] Comment on above: Result Comment: Non- GFR Calc Performed By: #### L 500.4050, L100.0500 ####[facility] [address] [place], [address] Globulin (S) [Mass/Vol] 3.4 g/dL Normal 2.2-4.2 [facility] Comment on above: Performed By: #### L 500.4050, L100.0500 ####[facility] [address] [place], [address] Glucose [Mass/Vol] 98 mg/dL Normal 74-[address] [facility] Comment on above: Performed By: #### L 500.4050, L100.0500 ####[facility] [address] [place], [address] Potassium [Moles/Vol] 4.0 mmol/L Normal 3.5-5.1 [facility] Comment on above: Performed By: #### L 500.4050, L100.0500 ####[facility] [address] [place], [address] Sodium [Moles/Vol] 135 mmol/L Low 136-[address] [facility] Comment on above: Performed By: #### L 500.4050, L100.0500 ####[facility] [address] [place], [address] T PROT 6.4 g/dL Normal 6.4-8.2 [facility] Comment on above: Performed By: #### L 500.4050, L100.0500 ####[facility] [address] [place], [address] Urea nitrogen [Mass/Vol] 24 mg/dL High 7-18 [facility] Comment on above: Performed By: #### L 500.4050, L100.0500 ####[facility] [address] [place], [place], [address] Discharge Instructionon 11-20 Discharge Instruction Normal [facility] Erythrocyte distribution wid th ratioOrdered By: Kofi Weiner on 12-11-2024 Erythrocyte distribution width (RBC) [Ratio] 15.4 % High 11.6-14.6 [facility] Erythrocyte distribution wid th standard deviationOrdered By: Kofi Weiner on 12-11-2024 Erythrocyte distribution width (RBC) [Ratio] 46.5 fl High 35.1-43.9 [facility] Glomerular filtration rate ( GFR) estimationOrdered By: Kofi Weiner on 12-11-2024 GFR/1.73 sq M.predicted among non-blacks MDRD (S/P/Bld) [Vol rate/Area] 48 mL/min/{1.73_m2} Low >60 [facility] Glucose measurementOrdered B y: Kofi Weiner on 12-11-2024 Glucose [Mass/Vol] 98 mg/dL 74-[address] [facility] Hematocrit Auto (Bld) [Volum e fraction]Ordered By: Kofi Weiner on 12-11-2024 Hematocrit (Bld) [Volume fraction] 35.3 % Low 37-47 [facility] Hemoglobin measurementOrdere d By: Kofi Weiner on 12-11-2024 Hemoglobin (Bld) [Mass/Vol] 11.2 g/dL Low 12.0-15.0 [facility] MCV (mean corpuscular volume ) determinationOrdered By: Kofi Weiner on 12-11-2024 MCV (RBC) [Entitic vol] 83.3 fL 81-99 [facility] Mean corpuscular hemoglobin (MCH) determinationOrdered By: Kofi Weiner on 12-11-2024 MCH (RBC) [Entitic mass] 26.4 pg Low 27.0-32.0 [facility] No Panel InformationOrdered By: Kofi Weiner on 12-11-2024 13 U/L Low 15-37 [facility] Platelet countOrdered By: Kacie chauncey Husam on 12-11-2024 Platelets (Bld) [#/Vol] 197 10*3/uL 150-450 [facility] Potassium measurementOrdered By: Kofi Weinre on 12-11-2024 Potassium [Moles/Vol] 4.0 mmol/L 3.5-5.1 [facility] RBC Auto (Bld) [#/Vol]Ordere d By: Kofi Weiner on 12-11-2024 RBC (Bld) [#/Vol] 4.24 10*6/uL 4.2-5.4 [facility] Serum globulin measurementOr dered By: Kofi Weiner on 12-11-2024 Globulin (S) [Mass/Vol] 3.4 g/dL 2.2-4.2 [facility] Serum or plasma alanine pizarro otransferase (ALT) measurementOrdered By: oKfi Weiner on 12-11-2024 ALT [Catalytic activity/Vol] 12 U/L Low 13-56 [facility] Serum or plasma albumin stefania urement (mass/volume)Ordered By: Kofi Weiner on 12-11-2024 Albumin [Mass/Vol] 3.0 g/dL Low 3.2-5.[address] [facility] Serum or plasma alkaline anthony sphatase measurementOrdered By: Kofi Weiner on 12-11-2024 ALP [Catalytic activity/Vol] 123 U/L High 45-117 [facility] Serum or plasma calcium stefania urement (mass/volume)Ordered By: Kofi Weiner on 12-11-2024 Calcium [Mass/Vol] 8.9 mg/dL 8.5-10.[address] [facility] Serum or plasma creatinine m easurement (mass/volume)Ordered By: Kofi Weiner on 12-11-2024 Creatinine [Mass/Vol] 1.18 mg/dL High 0.55-1.02 [facility] Serum or plasma urea nitroge n measurement (mass/volume)Ordered By: Kofi Weiner on 12-11-2024 Urea nitrogen [Mass/Vol] 24 mg/dL High 7-18 [facility] Sodium levelOrdered By: Jose ailynshayymarcelle Husam on 12-11-2024 Sodium [Moles/Vol] 135 mmol/L Low 136-[address] [facility] Stool Occult Blood iFOBon STOB Normal [facility] Comment on above: Performed By: #### M 100.7900 ####[facility] [address] [place], [place], [id number] Stool gastrointestinal hemog lobin detection by immunologic methodOrdered By: Trina Tyler on 12-11-2024 Lower GI hemoglobin IA Ql (Stl) [facility] Total proteinOrdered By: Billy Weiner on 12-11-2024 Protein [Mass/Vol] 6.4 g/dL 6.4-8.[address] [facility] White blood cell (WBC) count Ordered By: Kofi Weiner on 12-11-2024 WBC (Bld) [#/Vol] 7.7 10*3/uL 4.4-11.[address] [facility] 12 Lead EKGon 12-10-2024 12 Lead EKG Normal [facility] 12 Lead EKG Normal [facility] Absolute lymphocyte countOrd ered By: Trina Tyler on 12-10-2024 Lymphocytes Auto (Unsp spec) [#/Vol] 0.76 10*3/uL Low 0.83-4.51 [facility] Automated lymphocyte count a s percentage of total leukocytesOrdered By: Trina Tyler on 12-10-2024 Lymphocytes/100 WBC Auto (Unsp spec) 10.6 % Low 19-41 [facility] Basic Metabolic Profile (BMP )on 12-10-2024 BUN/CRE 22.3 RATIO High 10-20 [facility] Comment on above: Performed By: #### L 100.0100, L500.2500, L501.9520, L500.4100 ####[facility] [address] [place], [address] CA,Total 9.2 mg/dL Normal 8.5-10.1 [facility] Comment on above: Performed By: #### L 100.0100, L500.2500, L501.9520, L500.4100 ####[facility] [address] [place], [address] Chloride [Moles/Vol] 103 mmol/L Normal 98-107 [facility] Comment on above: Performed By: #### L 100.0100, L500.2500, L501.9520, L500.4100 ####[facility] [address] [place], [address] CO2 [Moles/Vol] 26.0 mmol/L Normal 21.0-32.0 [facility] Comment on above: Performed By: #### L 100.0100, L500.2500, L501.9520, L500.4100 ####[facility] [address] [place], [address] Creatinine [Mass/Vol] 1.03 mg/dL High 0.55-1.02 [facility] Comment on above: Result Comment: The validity of the calculated GFR GFRAA in patients over70 years has not been determined. Clinical correlation isessential. Performed By: #### L 100.0100, L500.2500, L501.9520, L500.4100 ####[facility] [address] [place], [address] ECRCL 41.32 ml/min Normal [facility] Comment on above: Performed By: #### L 100.0100, L500.2500, L501.9520, L500.4100 ####[facility] [address] [place], [address] EST GFR - AA 68 mL/min Normal >60 [facility] Comment on above: Result Comment: Afri can Monegasque GFR Calc Performed By: #### L 100.0100, L500.2500, L501.9520, L500.4100 ####[facility] [address] [place], [address] GAP 9 Normal 5-15 [facility] Comment on above: Performed By: #### L 100.0100, L500.2500, L501.9520, L500.4100 ####[facility] [address] [place], [address] GFR/1.73 sq M.predicted among non-blacks MDRD (S/P/Bld) [Vol rate/Area] 56 mL/min/{1.73_m2} Low >60 [facility] Comment on above: Result Comment: Non- GFR Calc Performed By: #### L 100.0100, L500.2500, L501.9520, L500.4100 ####[facility] [address] [place], [address] Glucose [Mass/Vol] 85 mg/dL Normal 74-[address] [facility] Comment on above: Performed By: #### L 100.0100, L500.2500, L501.9520, L500.4100 ####[facility] [address] [place], [address] Potassium [Moles/Vol] 3.8 mmol/L Normal 3.5-5.1 [facility] Comment on above: Performed By: #### L 100.0100, L500.2500, L501.9520, L500.4100 ####[facility] [address] [place], [address] Sodium [Moles/Vol] 138 mmol/L Normal 136-[address] [facility] Comment on above: Performed By: #### L 100.0100, L500.2500, L501.9520, L500.4100 ####[facility] [address] [place], [address] Urea nitrogen [Mass/Vol] 23 mg/dL High 7-18 [facility] Comment on above: Performed By: #### L 100.0100, L500.2500, L501.9520, L500.4100 ####[facility] [address] [place], [address] Basophil percentageOrdered B y: Trina Tyler on 12-10-2024 Basophils/100 WBC (Bld) 0.7 % 0-1 [facility] CBC W/Diff, Automatedon 11-20 Absolute Lymph 0.76 X10 3/uL Low 0.83-4.51 [facility] Comment on above: Performed By: #### L 100.0100, L500.2500, L501.9520, L500.4100 ####[facility] [address] [place], [address] Absolute Neut 5.7 X10 3/uL Normal 2.0-7.7 [facility] Comment on above: Performed By: #### L 100.0100, L500.2500, L501.9520, L500.4100 ####[facility] [address] [place], [address] Basophils/100 WBC (Bld) 0.7 % Normal 0-1 [facility] Comment on above: Performed By: #### L 100.0100, L500.2500, L501.9520, L500.4100 ####[facility] [address] [place], [address] Eosinophils/100 WBC (Bld) 1.5 % Normal 0-5 [facility] Comment on above: Performed By: #### L 100.0100, L500.2500, L501.9520, L500.4100 ####[facility] [address] [place], [address] Erythrocyte distribution width (RBC) [Ratio] 15.3 % High 11.6-14.6 [facility] Comment on above: Performed By: #### L 100.0100, L500.2500, L501.9520, L500.4100 ####[facility] [address] [place], [address] Hematocrit (Bld) [Volume fraction] 37.9 % Normal 37-47 [facility] Comment on above: Performed By: #### L 100.0100, L500.2500, L501.9520, L500.4100 ####[facility] [address] [place], [address] Hemoglobin (Bld) [Mass/Vol] 12.2 g/dL Normal 12.0-15.0 [facility] Comment on above: Performed By: #### L 100.0100, L500.2500, L501.9520, L500.4100 ####[facility] [address] [place], [address] IG% 0.400 Normal 0.0-0.9 [facility] Comment on above: Result Comment: IG% - Immature Granulocytes (promyelocytes, myelocytes andmetamyelocytes) > 1% indicates that a LEFT SHIFT is Present. Performed By: #### L 100.0100, L500.2500, L501.9520, L500.4100 ####[facility] [address] [place], [address] Lymphocytes/100 WBC (Bld) 10.6 % Low 19-41 [facility] Comment on above: Performed By: #### L 100.0100, L500.2500, L501.9520, L500.4100 ####[facility] [address] [place], [address] MCH (RBC) [Entitic mass] 27.0 pg Normal 27.0-32.0 [facility] Comment on above: Performed By: #### L 100.0100, L500.2500, L501.9520, L500.4100 ####[facility] [address] [place], [address] MCHC (RBC) [Mass/Vol] 32.2 g/dL Normal 32-36 [facility] Comment on above: Performed By: #### L 100.0100, L500.2500, L501.9520, L500.4100 ####[facility] [address] [place], [address] MCV (RBC) [Entitic vol] 83.8 fL Normal 81-99 [facility] Comment on above: Performed By: #### L 100.0100, L500.2500, L501.9520, L500.4100 ####[facility] [address] [place], [address] Monocytes/100 WBC (Bld) 7.4 % Normal 0-10 [facility] Comment on above: Performed By: #### L 100.0100, L500.2500, L501.9520, L500.4100 ####[facility] [address] [place], [address] Neutrophils/100 WBC (Bld) 79.4 % High 47-70 [facility] Comment on above: Performed By: #### L 100.0100, L500.2500, L501.9520, L500.4100 ####[facility] [address] [place], [address] Nucleated RBC (Bld) [#/Vol] 0 10*3/uL Normal 0-5 [facility] Comment on above: Performed By: #### L 100.0100, L500.2500, L501.9520, L500.4100 ####[facility] [address] [place], [address] Platelet mean volume (Bld) [Entitic vol] 9.7 fL Normal 6.2-12.0 [facility] Comment on above: Performed By: #### L 100.0100, L500.2500, L501.9520, L500.4100 ####[facility] [address] [place], [address] Platelets (Bld) [#/Vol] 175 10*3/uL Normal 150-450 [facility] Comment on above: Performed By: #### L 100.0100, L500.2500, L501.9520, L500.4100 ####[facility] [address] [place], [address] RBC (Bld) [#/Vol] 4.52 10*6/uL Normal 4.2-5.4 [facility] Comment on above: Performed By: #### L 100.0100, L500.2500, L501.9520, L500.4100 ####[facility] [address] [place], [address] RDW SD 46.5 fl High 35.1-43.9 [facility] Comment on above: Performed By: #### L 100.0100, L500.2500, L501.9520, L500.4100 ####[facility] [address] [place], [address] WBC (Bld) [#/Vol] 7.2 10*3/uL Normal 4.4-11.[address] [facility] Comment on above: Performed By: #### L 100.0100, L500.2500, L501.9520, L500.4100 ####[facility] [address] [place], [address] Consultation - Cardiologyon 12-10-2024 Consultation - Cardiology Normal [facility] Eosinophil percentageOrdered By: Trina Tyler on 12-10-2024 Eosinophils/100 WBC (Bld) 1.5 % 0-5 [facility] High density lipoprotein (HD L) measurementOrdered By: Trina Tyler on 12-10-2024 High density lipoprotein (HDL) measurement 49 mg/dL >40 [facility] Immature granulocytes/100 WB C Auto (Bld)Ordered By: Trina Tylre on 12-10-2024 Immature granulocytes/100 WBC (Bld) 0.400 % 0.0-0.9 [facility] Lipid Profileon 12-10-2024 Cholesterol [Mass/Vol] 189 mg/dL Normal 200 [facility] Comment on above: Result Comment: <200 mg/dL Desirable 200-240 mg/dL Borderline >240 mg/dL High Risk Performed By: #### L 100.0100, L500.2500, L501.9520, L500.4100 ####[facility] [address] [place], [address] Cholesterol in HDL [Mass/Vol] 49 mg/dL Normal [facility] Comment on above: Result Comment: The drugs N-Acetylcysteine and Metamizole may falselydepress this assay. Reference Range HDL <40 mg/dL Low HDL Cholesterol HDL >or= 60 mg/dL High HDL Cholesterol Performed By: #### L 100.0100, L500.2500, L501.9520, L500.4100 ####[facility] [address] [place], [address] Cholesterol in LDL [Mass/Vol] 119 mg/dL Normal 0-130 [facility] Comment on above: Performed By: #### L 100.0100, L500.2500, L501.9520, L500.4100 ####[facility] [address] [place], [address] Cholesterol in VLDL [Mass/Vol] 21 mg/dL Normal 5-40 [facility] Comment on above: Performed By: #### L 100.0100, L500.2500, L501.9520, L500.4100 ####[facility] [address] [place], [address] Triglyceride [Mass/Vol] 106 mg/dL Normal [facility] Comment on above: Result Comment: The drugs N-Acetylcysteine and Metamizole may falselydepress this assay.Serum Triglycerides Reference Interval Normal <150 mg/dL Borderline high 150 - 199 mg/dL High 200 - 499 mg/dL Very High > or = 500 mg/dL Performed By: #### L 100.0100, L500.2500, L501.9520, L500.4100 ####[facility] [address] [place], [place], [id number] Low density lipoprotein (LDL ) cholesterol measurementOrdered By: Trina Tyler on 12-10-2024 Low density lipoprotein (LDL) cholesterol measurement 119 mg/dL 0-130 [facility] Monocyte percentageOrdered B y: Trina Tyler on 12-10-2024 Monocytes/100 WBC (Bld) 7.4 % 0-10 W [facility] Neutrophil percentageOrdered By: Trina Tyler on 12-10-2024 Neutrophils/100 WBC (Bld) 79.4 % High 47-70 [facility] Serum or plasma cholesterol measurement (mass/volume)Ordered By: Trina Tyler on 12-10-2024 Cholesterol [Mass/Vol] 189 mg/dL <200 [facility] Serum or plasma thyroid stim ulating hormone (TSH) measurement (units/volume)Ordered By: Trina Tyler on 12-10-2024 TSH Qn 0.715 uIU/mL 0.358-3.74 0 [facility] Thyroid Stim Hormone (TSH)on 12-10-2024 TSH 0.715 uIU/mL Normal 0.358-3.74 0 [facility] Comment on above: Performed By: #### L 100.0100, L500.2500, L501.9520, L500.4100 ####[facility] [address] [place], [place], [id number] Very low density lipoprotein (VLDL) cholesterol measurementOrdered By: Trina Tyler on 12-10-2024 Very low density lipoprotein (VLDL) cholesterol measurement 21 mg/dL 5-40 [facility] 12 Lead EKGon 12-09-2024 12 Lead EKG Normal [facility] 12 Lead EKG Normal [facility] 12 Lead EKG Normal [facility] Basic Metabolic Profile (BMP )on 12-09-2024 BUN/CRE 14.3 RATIO Normal 10-20 [facility] Comment on above: Order Comment: 1Y Performed By: #### L 501.5425, L501.5200, L500.2500, L100.0100 ####[facility] [address] [place], [address] CA,Total 9.8 mg/dL Normal 8.5-10.1 [facility] Comment on above: Order Comment: 1Y Performed By: #### L 501.5425, L501.5200, L500.2500, L100.0100 ####[facility] [address] [place], [address] Chloride [Moles/Vol] 104 mmol/L Normal 98-107 [facility] Comment on above: Order Comment: 1Y Performed By: #### L 501.5425, L501.5200, L500.2500, L100.0100 ####[facility] [address] [place], [address] CO2 [Moles/Vol] 26.0 mmol/L Normal 21.0-32.0 [facility] Comment on above: Order Comment: 1Y Performed By: #### L 501.5425, L501.5200, L500.2500, L100.0100 ####[facility] [address] [place], [address] Creatinine [Mass/Vol] 1.26 mg/dL High 0.55-1.02 [facility] Comment on above: Order Comment: 1Y Result Comment: The validity of the calculated GFR GFRAA in patients over70 years has not been determined. Clinical correlation isessential. Performed By: #### L 501.5425, L501.5200, L500.2500, L100.0100 ####[facility] [address] [place], [address] ECRCL 29.84 ml/min Normal [facility] Comment on above: Order Comment: 1Y Performed By: #### L 501.5425, L501.5200, L500.2500, L100.0100 ####[facility] [address] [place], [address] EST GFR - AA 54 mL/min Low >60 [facility] Comment on above: Order Comment: 1Y Result Comment: Afri can Monegasque GFR Calc Performed By: #### L 501.5425, L501.5200, L500.2500, L100.0100 ####[facility] [address] [place], [address] GAP 8 Normal 5-15 [facility] Comment on above: Order Comment: 1Y Performed By: #### L 501.5425, L501.5200, L500.2500, L100.0100 ####[facility] [address] [place], [address] GFR/1.73 sq M.predicted among non-blacks MDRD (S/P/Bld) [Vol rate/Area] 45 mL/min/{1.73_m2} Low >60 [facility] Comment on above: Order Comment: 1Y Result Comment: Non- GFR Calc Performed By: #### L 501.5425, L501.5200, L500.2500, L100.0100 ####[facility] [address] [place], [address] Glucose [Mass/Vol] 118 mg/dL High 74-[address] [facility] Comment on above: Order Comment: 1Y Result Comment: Fast ing Glucose result from 100 to 125 mg/dLsuggests IMPAIRED HOMEOSTASIS per A.D.A. criteria. Performed By: #### L 501.5425, L501.5200, L500.2500, L100.0100 ####[facility] [address] [place], [address] Potassium [Moles/Vol] 3.8 mmol/L Normal 3.5-5.1 [facility] Comment on above: Order Comment: 1Y Performed By: #### L 501.5425, L501.5200, L500.2500, L100.0100 ####[facility] [facility] [address] [place], [address] Sodium [Moles/Vol] 138 mmol/L Normal 136-[address] [facility] Comment on above: Order Comment: 1Y Performed By: #### L 501.5425, L501.5200, L500.2500, L100.0100 ####[facility] [address] [place], [address] Urea nitrogen [Mass/Vol] 18 mg/dL Normal 7-18 [facility] Comment on above: Order Comment: 1Y Performed By: #### L 501.5425, L501.5200, L500.2500, L100.0100 ####[facility] [address] [place], [address] Brain/Head without Contrasto n 12-09-2024 Brain/Head without Contrast Normal [facility] CBC W/Diff, Automatedon -12 20-2024 Absolute Lymph 0.84 X10 3/uL Normal 0.83-4.51 [facility] Comment on above: Performed By: #### L 501.5425, L501.5200, L500.2500, L100.0100 ####[facility] [address] [place], [address] Absolute Neut 7.9 X10 3/uL High 2.0-7.7 [facility] Comment on above: Performed By: #### L 501.5425, L501.5200, L500.2500, L100.0100 ####[facility] [address] [place], [address] Basophils/100 WBC (Bld) 0.6 % Normal 0-1 [facility] Comment on above: Performed By: #### L 501.5425, L501.5200, L500.2500, L100.0100 ####[facility] [address] [place], [address] Eosinophils/100 WBC (Bld) 1.1 % Normal 0-5 [facility] Comment on above: Performed By: #### L 501.5425, L501.5200, L500.2500, L100.0100 ####[facility] [address] [place], [address] Erythrocyte distribution width (RBC) [Ratio] 15.7 % High 11.6-14.6 [facility] Comment on above: Performed By: #### L 501.5425, L501.5200, L500.2500, L100.0100 ####[facility] [address] [place], [address] Hematocrit (Bld) [Volume fraction] 41.9 % Normal 37-47 [facility] Comment on above: Performed By: #### L 501.5425, L501.5200, L500.2500, L100.0100 ####[facility] [address] [place], [address] Hemoglobin (Bld) [Mass/Vol] 13.5 g/dL Normal 12.0-15.0 [facility] Comment on above: Performed By: #### L 501.5425, L501.5200, L500.2500, L100.0100 ####[facility] [address] [place], [address] IG% 0.600 Normal 0.0-0.9 [facility] Comment on above: Result Comment: IG% - Immature Granulocytes (promyelocytes, myelocytes andmetamyelocytes) > 1% indicates that a LEFT SHIFT is Present. Performed By: #### L 501.5425, L501.5200, L500.2500, L100.0100 ####[facility] [address] [place], [address] Lymphocytes/100 WBC (Bld) 8.7 % Low 19-41 [facility] Comment on above: Performed By: #### L 501.5425, L501.5200, L500.2500, L100.0100 ####[facility] [address] [place], [address] MCH (RBC) [Entitic mass] 27.2 pg Normal 27.0-32.0 [facility] Comment on above: Performed By: #### L 501.5425, L501.5200, L500.2500, L100.0100 ####[facility] [address] [place], [address] MCHC (RBC) [Mass/Vol] 32.2 g/dL Normal 32-36 [facility] Comment on above: Performed By: #### L 501.5425, L501.5200, L500.2500, L100.0100 ####[facility] [address] [place], [address] MCV (RBC) [Entitic vol] 84.3 fL Normal 81-99 [facility] Comment on above: Performed By: #### L 501.5425, L501.5200, L500.2500, L100.0100 ####[facility] [address] [place], [address] Monocytes/100 WBC (Bld) 6.8 % Normal 0-10 [facility] Comment on above: Performed By: #### L 501.5425, L501.5200, L500.2500, L100.0100 ####[facility] [address] [place], [address] Neutrophils/100 WBC (Bld) 82.2 % High 47-70 [facility] Comment on above: Performed By: #### L 501.5425, L501.5200, L500.2500, L100.0100 ####[facility] [address] [place], [address] Nucleated RBC (Bld) [#/Vol] 0 10*3/uL Normal 0-5 [facility] Comment on above: Performed By: #### L 501.5425, L501.5200, L500.2500, L100.0100 ####[facility] [address] [place], [address] Platelet mean volume (Bld) [Entitic vol] 10.2 fL Normal 6.2-12.0 [facility] Comment on above: Performed By: #### L 501.5425, L501.5200, L500.2500, L100.0100 ####[facility] [address] [place], [address] Platelets (Bld) [#/Vol] 191 10*3/uL Normal 150-450 [facility] Comment on above: Performed By: #### L 501.5425, L501.5200, L500.2500, L100.0100 ####[facility] [address] [place], [address] RBC (Bld) [#/Vol] 4.97 10*6/uL Normal 4.2-5.4 [facility] Comment on above: Performed By: #### L 501.5425, L501.5200, L500.2500, L100.0100 ####[facility] [address] [place], [address] RDW SD 48.3 fl High 35.1-43.9 [facility] Comment on above: Performed By: #### L 501.5425, L501.5200, L500.2500, L100.0100 ####[facility] [address] [place], [address] WBC (Bld) [#/Vol] 9.6 10*3/uL Normal 4.4-11.[address] [facility] Comment on above: Performed By: #### L 501.5425, L501.5200, L500.2500, L100.0100 ####[facility] [address] [place], [address] Chest 1 View (Portable)on Chest 1 View (Portable) Normal [facility] Echo Complete W/ Contraston 12-09-2024 Echo Complete W/ Contrast Normal [facility] Emergency Department Summary on 12-09-2024 Emergency Department Summary Normal [facility] H AND P Exam - Hospitaliston 12-09-2024 H&P Exam - Hospitalist Normal [facility] L501.4020on 12-09-2024 TROPONIN-I HS 72 pg/mL High 3.0-54.0 [facility] Comment on above: Order Comment: 'TROP ' Serial specimen #1, #2 or #3: 3 Result Comment: Plea se Note: New Test Units and Gender Specific Reference Ranges. For more information see Policy Stat Procedure [place] High Sensitivity Troponin (TNIH) and attachments. Performed By: #### L 501.4020 ####[facility] [address] [place], [address] TROPONIN-I HS 74 pg/mL High 3.0-54.0 [facility] Comment on above: Result Comment: Plea se Note: New Test Units and Gender Specific Reference Ranges. For more information see Policy Stat Procedure [place] High Sensitivity Troponin (TNIH) and attachments. Performed By: #### L 501.4020 ####[facility] [address] [place], [address] L501.5425on 12-09-2024 TROPONIN-I HS 91 pg/mL High 3.0-54.0 [facility] Comment on above: Order Comment: 1Y Result Comment: Plea se Note: New Test Units and Gender Specific Reference Ranges. For more information see Policy Stat Procedure [place] High Sensitivity Troponin (TNIH) and attachments. Performed By: #### L 501.5425, L501.5200, L500.2500, L100.0100 ####[facility] [address] [place], [address] Magnesiumon 12-09-2024 Magnesium [Mass/Vol] 2.3 mg/dL Normal 1.6-2.6 [facility] Comment on above: Order Comment: 1Y Performed By: #### L 501.5425, L501.5200, L500.2500, L100.0100 ####[facility] [address] [place], [address] Magnesium measurementOrdered By: Nuno Grider on 12-09-2024 Magnesium [Mass/Vol] 2.3 mg/dL 1.6-2.6 [facility] Troponin IOrdered By: Trina Tyler on 12-09-2024 Troponin I 72 pg/mL High 3.0-54.0 [facility] 12 Lead EKGon 11-28-2024 12 Lead EKG Normal [facility] Basic Metabolic Profile (BMP )on 11-28-2024 BUN/CRE 14.9 RATIO Normal 10-20 [facility] Comment on above: Performed By: #### L 300.8000, L100.0100, L500.2500 ####[facility] [address] [place], [address] CA,Total 9.5 mg/dL Normal 8.5-10.1 [facility] Comment on above: Performed By: #### L 300.8000, L100.0100, L500.2500 ####[facility] [address], [address] Chloride [Moles/Vol] 105 mmol/L Normal 98-107 [facility] Comment on above: Performed By: #### L 300.8000, L100.0100, L500.2500 ####[facility] [address] [place], [address] CO2 [Moles/Vol] 26.0 mmol/L Normal 21.0-32.0 [facility] Comment on above: Performed By: #### L 300.8000, L100.0100, L500.2500 ####[facility] [address] [place], [address] Creatinine [Mass/Vol] 1.14 mg/dL High 0.55-1.02 [facility] Comment on above: Result Comment: The validity of the calculated GFR GFRAA in patients over70 years has not been determined. Clinical correlation isessential. Performed By: #### L 300.8000, L100.0100, L500.2500 ####[facility] [address] [place], [address] ECRCL 39.22 ml/min Normal [facility] Comment on above: Performed By: #### L 300.8000, L100.0100, L500.2500 ####[facility] [address] [place], [address] EST GFR - AA 61 mL/min Normal >60 [facility] Comment on above: Result Comment: Afri can Monegasque GFR Calc Performed By: #### L 300.8000, L100.0100, L500.2500 ####[facility] [address] [place], [address] GAP 7 Normal 5-15 [facility] Comment on above: Performed By: #### L 300.8000, L100.0100, L500.2500 ####[facility] [address] [place], [address] GFR/1.73 sq M.predicted among non-blacks MDRD (S/P/Bld) [Vol rate/Area] 50 mL/min/{1.73_m2} Low >60 [facility] Comment on above: Result Comment: Non- GFR Calc Performed By: #### L 300.8000, L100.0100, L500.2500 ####[facility] [address] [place], [address] Glucose [Mass/Vol] 107 mg/dL High 74-[address] [facility] Comment on above: Result Comment: Fast ing Glucose result from 100 to 125 mg/dLsuggests IMPAIRED HOMEOSTASIS per A.D.A. criteria. Performed By: #### L 300.8000, L100.0100, L500.2500 ####[facility] [address] [place], [address] Potassium [Moles/Vol] 3.2 mmol/L Low 3.5-5.1 [facility] Comment on above: Performed By: #### L 300.8000, L100.0100, L500.2500 ####[facility] [address] [place], [address] Sodium [Moles/Vol] 138 mmol/L Normal 136-[address] [facility] Comment on above: Performed By: #### L 300.8000, L100.0100, L500.2500 ####[facility] [address] [place], [address] Urea nitrogen [Mass/Vol] 17 mg/dL Normal 7-18 [facility] Comment on above: Performed By: #### L 300.8000, L100.0100, L500.2500 ####[facility] [address] [place], [address] Brain/Head without Contrasto n 11-28-2024 Brain/Head without Contrast Normal [facility] CBC W/Diff, Automatedon 11-19 0-2024 Absolute Lymph 2.10 X10 3/uL Normal 0.83-4.51 [facility] Comment on above: Performed By: #### L 300.8000, L100.0100, L500.2500 ####[facility] [address] [place], [address] Absolute Neut 5.8 X10 3/uL Normal 2.0-7.7 [facility] Comment on above: Performed By: #### L 300.8000, L100.0100, L500.2500 ####[facility] [address] [place], [address] Basophils/100 WBC (Bld) 0.8 % Normal 0-1 [facility] Comment on above: Performed By: #### L 300.8000, L100.0100, L500.2500 ####[facility] [address] [place], [address] Eosinophils/100 WBC (Bld) 2.3 % Normal 0-5 [facility] Comment on above: Performed By: #### L 300.8000, L100.0100, L500.2500 ####[facility] [address] [place], [address] Erythrocyte distribution width (RBC) [Ratio] 15.8 % High 11.6-14.6 [facility] Comment on above: Performed By: #### L 300.8000, L100.0100, L500.2500 ####[facility] [address] [place], [address] Hematocrit (Bld) [Volume fraction] 40.3 % Normal 37-47 [facility] Comment on above: Performed By: #### L 300.8000, L100.0100, L500.2500 ####[facility] [address] [place], [address] Hemoglobin (Bld) [Mass/Vol] 13.1 g/dL Normal 12.0-15.0 [facility] Comment on above: Performed By: #### L 300.8000, L100.0100, L500.2500 ####[facility] [address] [place], [address] IG% 0.400 Normal 0.0-0.9 [facility] Comment on above: Result Comment: IG% - Immature Granulocytes (promyelocytes, myelocytes andmetamyelocytes) > 1% indicates that a LEFT SHIFT is Present. Performed By: #### L 300.8000, L100.0100, L500.2500 ####[facility] [address] [place], [address] Lymphocytes/100 WBC (Bld) 23.0 % Normal 19-41 [facility] Comment on above: Performed By: #### L 300.8000, L100.0100, L500.2500 ####[facility] [address] [place], [address] MCH (RBC) [Entitic mass] 27.1 pg Normal 27.0-32.0 [facility] Comment on above: Performed By: #### L 300.8000, L100.0100, L500.2500 ####[facility] [address] [place], [address] MCHC (RBC) [Mass/Vol] 32.5 g/dL Normal 32-36 [facility] Comment on above: Performed By: #### L 300.8000, L100.0100, L500.2500 ####[facility] [address] [place], [address] MCV (RBC) [Entitic vol] 83.4 fL Normal 81-99 [facility] Comment on above: Performed By: #### L 300.8000, L100.0100, L500.2500 ####[facility] [address] [place], [address] Monocytes/100 WBC (Bld) 10.2 % High 0-10 [facility] Comment on above: Performed By: #### L 300.8000, L100.0100, L500.2500 ####[facility] [address] [place], [address] Neutrophils/100 WBC (Bld) 63.3 % Normal 47-70 [facility] Comment on above: Performed By: #### L 300.8000, L100.0100, L500.2500 ####[facility] [address] [place], [address] Nucleated RBC (Bld) [#/Vol] 0 10*3/uL Normal 0-5 [facility] Comment on above: Performed By: #### L 300.8000, L100.0100, L500.2500 ####[facility] [address] [place], [address] Platelet mean volume (Bld) [Entitic vol] 10.2 fL Normal 6.2-12.0 [facility] Comment on above: Performed By: #### L 300.8000, L100.0100, L500.2500 ####[facility] [address] [place], [address] Platelets (Bld) [#/Vol] 204 10*3/uL Normal 150-450 [facility] Comment on above: Performed By: #### L 300.8000, L100.0100, L500.2500 ####[facility] [address] [place], [address] RBC (Bld) [#/Vol] 4.83 10*6/uL Normal 4.2-5.4 [facility] Comment on above: Performed By: #### L 300.8000, L100.0100, L500.2500 ####[facility] [address] [place], [address] RDW SD 47.8 fl High 35.1-43.9 [facility] Comment on above: Performed By: #### L 300.8000, L100.0100, L500.2500 ####[facility] [address] [place], [address] WBC (Bld) [#/Vol] 9.1 10*3/uL Normal 4.4-11.[address] [facility] Comment on above: Performed By: #### L 300.8000, L100.0100, L500.2500 ####[facility] [address] [place], [address] D-Dimer Quantitative (DVT/PE )on 11-28-2024 D-DIMER QUANT 0.40 FEU/ug/m Normal 0.27-0.49 [facility] Comment on above: Result Comment: NORM AL D-Dimer level (<0.50) indicates no DVT or PE. Performed By: #### L 300.8000, L100.0100, L500.2500 ####[facility] [address] [place], [address] Emergency Department Summary on 11-28-2024 Emergency Department Summary Normal [facility] Cardiology Visit Reporton Cardiology Visit Report Normal [facility] 36on 11-20-2024 36 Patient called [...] tab): 09/15/24 Updated/Validated preferred pharmacy: [id number] - [facility] [address] [facility] Patient instructed to contact the pharmacy prior to picking up the medication: Yes Normal [facility] 36 Last ov-12/14/23 Next ov- N/A Normal [facility] Pulmonary Visit Reporton Pulmonary Visit Report Normal [facility] 6 Minute Walk Teston 024 6 Minute Walk Test Normal [facility] Low Dose CT Lung Screeningon 10-03-[address] Lung Screening Normal [facility] 36on 09-15-2024 36 patient has been not ified of providers message. She will call back to schedule the appointment Normal [facility] 36 Refill for baclofen sent. Patient needs to schedule a follow up; in November it will be one year since she has last see. Normal [facility] 36 Last ov- 12/14/23 Next ov- n/a Normal [facility] Abd Aortic/IVC Duplex scanon 08-27-2024 Abd Aortic/IVC Duplex scan Normal [facility] Ankle Brachial Indexon 08-27 Ankle Brachial Index Normal [facility] Pulmonary Visit Reporton Pulmonary Visit Report Normal [facility] CBC W/Diff, Automatedon 07-21 Absolute Lymph 1.25 X10 3/uL Normal 0.83-4.51 [facility] Comment on above: Order Comment: Inter face Comments:cc copy to Dr. Nicola Hernandez, Vascular SurgeonOrder Date: 08/14/24Order Info: 0184-1 - CBCDComments: cc copy to Dr. Nicola Hernandez, Vascular Surgeon Performed By: #### L 100.0100, L503.6550, L500.4050, L503.6030 ####[facility] [address] [place], [address] Absolute Neut 4.6 X10 3/uL Normal 2.0-7.7 [facility] Comment on above: Order Comment: Inter face Comments:cc copy to Dr. Nicola Hernandez, Vascular SurgeonOrder Date: 08/14/24Order Info: 0184-1 - CBCDComments: cc copy to Dr. Nicola Hernandez, Vascular Surgeon Performed By: #### L 100.0100, L503.6550, L500.4050, L503.6030 ####[facility] [address] [place], [address] Basophils/100 WBC (Bld) 0.7 % Normal 0-1 [facility] Comment on above: Order Comment: Inter face Comments:cc copy to Dr. Nicola Hernandez, Vascular SurgeonOrder Date: 08/14/24Order Info: 0184-1 - CBCDComments: cc copy to Dr. Nicola Hernandez, Vascular Surgeon Performed By: #### L 100.0100, L503.6550, L500.4050, L503.6030 ####[facility] [address] [place], [address] Eosinophils/100 WBC (Bld) 5.6 % High 0-5 [facility] Comment on above: Order Comment: Inter face Comments:cc copy to Dr. Nicola Hernandez Vascular SurgeonOrder Date: 08/14/24Order Info: 0184-1 - CBCDComments: cc copy to Dr. Nicola Hernandez, Vascular Surgeon Performed By: #### L 100.0100, L503.6550, L500.4050, L503.6030 ####[facility] [address] [place], [address] Erythrocyte distribution width (RBC) [Ratio] 15.4 % High 11.6-14.6 [facility] Comment on above: Order Comment: Inter face Comments:cc copy to Dr. Nicola Hernandez, Vascular SurgeonOrder Date: 08/14/24Order Info: 0184-1 - CBCDComments: cc copy to Dr. Nicola Hernandez, Vascular Surgeon Performed By: #### L 100.0100, L503.6550, L500.4050, L503.6030 ####[facility] [address] [place], [address] Hematocrit (Bld) [Volume fraction] 39.2 % Normal 37-47 [facility] Comment on above: Order Comment: Inter face Comments:cc copy to Dr. Nicola Hernandez Vascular SurgeonOrder Date: 08/14/24Order Info: 0184-1 - CBCDComments: cc copy to Dr. Nicola Hernandez Vascular Surgeon Performed By: #### L 100.0100, L503.6550, L500.4050, L503.6030 ####[facility] [address] [place], [address] Hemoglobin (Bld) [Mass/Vol] 12.1 g/dL Normal 12.0-15.0 [facility] Comment on above: Order Comment: Inter face Comments:cc copy to Dr. Nicola Hernandez Vascular SurgeonOrder Date: 08/14/24Order Info: [id number] - CBCDComments: cc copy to Dr. Nicola Hernandez Vascular Surgeon Performed By: #### L 100.0100, L503.6550, L500.4050, L503.6030 ####[facility] [address] [place], [address] IG% 0.300 Normal 0.0-0.9 [facility] Comment on above: Order Comment: Inter face Comments:cc copy to Dr. Nicola Hernandez Vascular SurgeonOrder Date: 08/14/24Order Info: 183-11 - CBCDComments: cc copy to Dr. Nicola Hernandez Vascular Surgeon Result Comment: IG% - Immature Granulocytes (promyelocytes, myelocytes andmetamyelocytes) > 1% indicates that a LEFT SHIFT is Present. Performed By: #### L 100.0100, L503.6550, L500.4050, L503.6030 ####[facility] [address] [place], [address] Lymphocytes/100 WBC (Bld) 17.8 % Low 19-41 [facility] Comment on above: Order Comment: Inter face Comments:cc copy to Dr. Nicola Hernandez Vascular SurgeonOrder Date: 08/14/24Order Info: [id number] - CBCDComments: cc copy to Dr. Nicola Hernandez Vascular Surgeon Performed By: #### L 100.0100, L503.6550, L500.4050, L503.6030 ####[facility] [address] [place], [address] MCH (RBC) [Entitic mass] 27.9 pg Normal 27.0-32.0 [facility] Comment on above: Order Comment: Inter face Comments:cc copy to Dr. Nicola Hernandez Vascular SurgeonOrder Date: 08/14/24Order Info: [id number] - CBCDComments: cc copy to Dr. Nicola Hernandez Vascular Surgeon Performed By: #### L 100.0100, L503.6550, L500.4050, L503.6030 ####[facility] [address] [place], [address] MCHC (RBC) [Mass/Vol] 30.9 g/dL Low 32-36 [facility] Comment on above: Order Comment: Inter face Comments:cc copy to Dr. Nicola Hernandez Vascular SurgeonOrder Date: 08/14/24Order Info: 0184-1 - CBCDComments: cc copy to Dr. Nicola Hernandez Vascular Surgeon Performed By: #### L 100.0100, L503.6550, L500.4050, L503.6030 ####[facility] [address] [place], [address] MCV (RBC) [Entitic vol] 90.5 fL Normal 81-99 [facility] Comment on above: Order Comment: Inter face Comments:cc copy to Dr. Nicola Hernandez Vascular SurgeonOrder Date: 08/14/24Order Info: [id number] - CBCDComments: cc copy to Dr. Nicola Hernandez, Vascular Surgeon Performed By: #### L 100.0100, L503.6550, L500.4050, L503.6030 ####[facility] [address] [place], [address] Monocytes/100 WBC (Bld) 9.4 % Normal 0-10 [facility] Comment on above: Order Comment: Inter face Comments:cc copy to Dr. Nicola Hernandez Vascular SurgeonOrder Date: 08/14/24Order Info: [id number] - CBCDComments: cc copy to Dr. Nicola Hernandez Vascular Surgeon Performed By: #### L 100.0100, L503.6550, L500.4050, L503.6030 ####[facility] [address] [place], [address] Neutrophils/100 WBC (Bld) 66.2 % Normal 47-70 [facility] Comment on above: Order Comment: Inter face Comments:cc copy to Dr. Nicola Hernandez Vascular SurgeonOrder Date: 08/14/24Order Info: [id number]- - CBCDComments: cc copy to Dr. Nicola Hernandez Vascular Surgeon Performed By: #### L 100.0100, L503.6550, L500.4050, L503.6030 ####[facility] [address] [place], [address] Nucleated RBC (Bld) [#/Vol] 0 10*3/uL Normal 0-5 [facility] Comment on above: Order Comment: Inter face Comments:cc copy to Dr. Nicola Hernandez Vascular SurgeonOrder Date: 08/14/24Order Info: [id number] - CBCDComments: cc copy to Dr. Nicola Hernandez, Vascular Surgeon Performed By: #### L 100.0100, L503.6550, L500.4050, L503.6030 ####[facility] [address] [place], [address] Platelet mean volume (Bld) [Entitic vol] 10.9 fL Normal 6.2-12.0 [facility] Comment on above: Order Comment: Inter face Comments:cc copy to Dr. Nicola Hernandez Vascular SurgeonOrder Date: 08/14/24Order Info: 018- - CBCDComments: cc copy to Dr. Nicola Hernandez Vascular Surgeon Performed By: #### L 100.0100, L503.6550, L500.4050, L503.6030 ####[facility] [address] [place], [address] Platelets (Bld) [#/Vol] 160 10*3/uL Normal 150-450 [facility] Comment on above: Order Comment: Inter face Comments:cc copy to Dr. Nicola Hernandez Vascular SurgeonOrder Date: 08/14/24Order Info: 018- - CBCDComments: cc copy to Dr. Nicola Hernandez Vascular Surgeon Performed By: #### L 100.0100, L503.6550, L500.4050, L503.6030 ####[facility] [address] [place], [address] RBC (Bld) [#/Vol] 4.33 10*6/uL Normal 4.2-5.4 [facility] Comment on above: Order Comment: Inter face Comments:cc copy to Dr. Nicola Hernandez Vascular SurgeonOrder Date: 08/14/24Order Info: [id number] - CBCDComments: cc copy to Dr. Nicola Hernandez, Vascular Surgeon Performed By: #### L 100.0100, L503.6550, L500.4050, L503.6030 ####[facility] [address] [place], [address] RDW SD 51.4 fl High 35.1-43.9 [facility] Comment on above: Order Comment: Inter face Comments:cc copy to Dr. Nicola Hernandez Vascular SurgeonOrder Date: 08/14/24Order Info: 018- - CBCDComments: cc copy to Dr. Nicola Hernandez, Vascular Surgeon Performed By: #### L 100.0100, L503.6550, L500.4050, L503.6030 ####[facility] [address] [place], [address] WBC (Bld) [#/Vol] 7.0 10*3/uL Normal 4.4-11.[address] [facility] Comment on above: Order Comment: Inter face Comments:cc copy to Dr. Nicola Hernandez Vascular SurgeonOrder Date: 08/14/24Order Info: 018- - CBCDComments: cc copy to Dr. Nicola Hernandez Vascular Surgeon Performed By: #### L 100.0100, L503.6550, L500.4050, L503.6030 ####[facility] [address] [place], [address] Comprehensive Metabolic Prof ilon 08-14-2024 Albumin [Mass/Vol] 3.3 g/dL Normal 3.2-5.[address] [facility] Comment on above: Order Comment: Inter face Comments:cc copy to Dr. Nicola Hernandez Vascular SurgeonOrder Date: 08/14/24Order Info: [id number] - CMPOrder Info: [id number] - TSHOrder Info: [id number] - IBCOrder Info: [id number] - FERComments: cc copy to Dr. Nicola Hernandez Vascular SurgeonOrder Info: [id number] - T4Fcc copy to Dr. Nicola Hernandez Vascular Surgeon Performed By: #### L 100.0100, L503.6550, L500.4050, L503.6030 ####[facility] [address] [place], [address] Albumin/Globulin [Mass ratio] 1.0 {ratio} Normal 0.9-2.4 [facility] Comment on above: Order Comment: Inter face Comments:cc copy to Dr. Nicola Hernandez Vascular SurgeonOrder Date: 08/14/24Order Info: [id number] - CMPOrder Info: [id number] - TSHOrder Info: [id number] - IBCOrder Info: [id number] - FERComments: cc copy to Dr. Nicola Hernandez Vascular SurgeonOrder Info: 3024-05 - T4Fcc copy to Dr. Nicola Hernandez, Vascular Surgeon Performed By: #### L 100.0100, L503.6550, L500.4050, L503.6030 ####[facility] [address] [place], [address] ALK P 128 U/L High 45-117 [facility] Comment on above: Order Comment: Inter face Comments:cc copy to Dr. Nicola Hernandez Vascular SurgeonOrder Date: 08/14/24Order Info: 1 - CMPOrder Info: [id number] - TSHOrder Info: [id number] - IBCOrder Info: [id number] - FERComments: cc copy to Dr. Nicola Hernandez Vascular SurgeonOrder Info: 3027 - T4Fcc copy to Dr. Nicola Hernandez, Vascular Surgeon Performed By: #### L 100.0100, L503.6550, L500.4050, L503.6030 ####[facility] [address] [place], [address] ALT [Catalytic activity/Vol] 14 U/L Normal 13-56 [facility] Comment on above: Order Comment: Inter face Comments:cc copy to Dr. Nicola Hernandez Vascular SurgeonOrder Date: 08/14/24Order Info: [id number] - CMPOrder Info: 6-3 - TSHOrder Info: [id number] - IBCOrder Info: [id number] - FERComments: cc copy to Dr. Nicola Hernandez Vascular SurgeonOrder Info: 3024-7 - T4Fcc copy to Dr. Nicola Hernandez, Vascular Surgeon Performed By: #### L 100.0100, L503.6550, L500.4050, L503.6030 ####[facility] [address] [place], [address] AST [Catalytic activity/Vol] 12 U/L Low 15-37 [facility] Comment on above: Order Comment: Inter face Comments:cc copy to Dr. Nicola Hernandez Vascular SurgeonOrder Date: 08/14/24Order Info: [id number] - CMPOrder Info: [id number] - TSHOrder Info: [id number] - IBCOrder Info: [id number] - FERComments: cc copy to Dr. Nicola Hernandez Vascular SurgeonOrder Info: 3024-7 - T4Fcc copy to Dr. Nicola Hernandez, Vascular Surgeon Performed By: #### L 100.0100, L503.6550, L500.4050, L503.6030 ####[facility] [address] [place], [address] Bilirubin [Mass/Vol] 0.30 mg/dL Normal 0.20-1.00 [facility] Comment on above: Order Comment: Inter face Comments:cc copy to Dr. Nicola Hernandez Vascular SurgeonOrder Date: 08/14/24Order Info: [id number] - CMPOrder Info: 6-3 - TSHOrder Info: [id number] - IBCOrder Info: [id number] - FERComments: cc copy to Dr. Nicola Hernandez Vascular SurgeonOrder Info: 3024-7 - T4Fcc copy to Dr. Nicola Hernandez, Vascular Surgeon Result Comment: For patients on eltrombopag therapy, use of Dimension [place] TBIL is not recommended. Performed By: #### L 100.0100, L503.6550, L500.4050, L503.6030 ####[facility] [address] [place], [address] BUN/CRE 14.5 RATIO Normal 10-20 [facility] Comment on above: Order Comment: Inter face Comments:cc copy to Dr. Nicola Hernandez, Vascular SurgeonOrder Date: 08/14/24Order Info: [id number] - CMPOrder Info: [id number] - TSHOrder Info: [id number] - IBCOrder Info: 227-4 - FERComments: cc copy to Dr. Nicola Hernandez, Vascular SurgeonOrder Info: 3024-7 - T4Fcc copy to Dr. Nicola Hernandez, Vascular Surgeon Performed By: #### L 100.0100, L503.6550, L500.4050, L503.6030 ####[facility] [address] [place], [address] CA,Total 9.3 mg/dL Normal 8.5-10.1 [facility] Comment on above: Order Comment: Inter face Comments:cc copy to Dr. Nicola Hernandez Vascular SurgeonOrder Date: 08/14/24Order Info: [id number] - CMPOrder Info: [id number] - TSHOrder Info: [id number] - IBCOrder Info: [id number] - FERComments: cc copy to Dr. Nicola Hernandez, Vascular SurgeonOrder Info: 3024-7 - T4Fcc copy to Dr. Nicola Hernandez, Vascular Surgeon Performed By: #### L 100.0100, L503.6550, L500.4050, L503.6030 ####[facility] [address] [place], [address] Chloride [Moles/Vol] 107 mmol/L Normal 98-107 [facility] Comment on above: Order Comment: Inter face Comments:cc copy to Dr. Nicola Hernandez Vascular SurgeonOrder Date: 08/14/24Order Info: 0786-1 - CMPOrder Info: [id number] - TSHOrder Info: [id number] - IBCOrder Info: [id number] - FERComments: cc copy to Dr. Nicola Hernandez Vascular SurgeonOrder Info: 3024-7 - T4Fcc copy to Dr. Nicola Hernandez Vascular Surgeon Performed By: #### L 100.0100, L503.6550, L500.4050, L503.6030 ####[facility] [address] [place], [address] CO2 [Moles/Vol] 28.0 mmol/L Normal 21.0-32.0 [facility] Comment on above: Order Comment: Inter face Comments:cc copy to Dr. Nicola Hernandez Vascular SurgeonOrder Date: 08/14/24Order Info: [id number] - CMPOrder Info: 3 - TSHOrder Info: [id number] - IBCOrder Info: [id number] - FERComments: cc copy to Dr. Nicola Hernandez Vascular SurgeonOrder Info: 3027 - T4Fcc copy to Dr. Nicola Hernandez Vascular Surgeon Performed By: #### L 100.0100, L503.6550, L500.4050, L503.6030 ####[facility] [address] [place], [address] Creatinine [Mass/Vol] 1.10 mg/dL High 0.55-1.02 [facility] Comment on above: Order Comment: Inter face Comments:cc copy to Dr. Nicola Hernandez Vascular SurgeonOrder Date: 08/14/24Order Info: 0786-1 - CMPOrder Info: [id number] - TSHOrder Info: [id number] - IBCOrder Info: [id number] - FERComments: cc copy to Dr. Nicola Hernandez Vascular SurgeonOrder Info: 3024-7 - T4Fcc copy to Dr. Nicola Hernandez Vascular Surgeon Result Comment: The validity of the calculated GFR GFRAA in patients over70 years has not been determined. Clinical correlation isessential. Performed By: #### L 100.0100, L503.6550, L500.4050, L503.6030 ####[facility] [address] [place], [address] EST GFR - AA 63 mL/min Normal >60 [facility] Comment on above: Order Comment: Inter face Comments:cc copy to Dr. Nicola Hernandez Vascular SurgeonOrder Date: 08/14/24Order Info: 0786-1 - CMPOrder Info: [id number] - TSHOrder Info: [id number] - IBCOrder Info: [id number] - FERComments: cc copy to Dr. Nicola Hernandez Vascular SurgeonOrder Info: 3024-7 - T4Fcc copy to Dr. Nicola Hernandez Vascular Surgeon Result Comment: Afri can [place] GFR Calc Performed By: #### L 100.0100, L503.6550, L500.4050, L503.6030 ####[facility] [address] [place], [address] GAP 5 Normal 5-15 [facility] Comment on above: Order Comment: Inter face Comments:cc copy to Dr. Nicola Hernandez Vascular SurgeonOrder Date: 08/14/24Order Info: 0786-1 - CMPOrder Info: 3 - TSHOrder Info: [id number] - IBCOrder Info: [id number] - FERComments: cc copy to Dr. Nicola Hernandez Vascular SurgeonOrder Info: 3024-7 - T4Fcc copy to Dr. Nicola Hernandez Vascular Surgeon Performed By: #### L 100.0100, L503.6550, L500.4050, L503.6030 ####[facility] [address] [place], [address] GFR/1.73 sq M.predicted among non-blacks MDRD (S/P/Bld) [Vol rate/Area] 52 mL/min/{1.73_m2} Low >60 [facility] Comment on above: Order Comment: Inter face Comments:cc copy to Dr. Nicola Hernandez Vascular SurgeonOrder Date: 08/14/24Order Info: [id number] - CMPOrder Info: [id number] - TSHOrder Info: [id number] - IBCOrder Info: [id number] - FERComments: cc copy to Dr. Nicola Hernandez Vascular SurgeonOrder Info: 3024-[address] Nicola Hernandez Vascular Surgeon Result Comment: Non- GFR Calc Performed By: #### L 100.0100, L503.6550, L500.4050, L503.6030 ####[facility] [address] [place], [address] Globulin (S) [Mass/Vol] 3.4 g/dL Normal 2.2-4.2 [facility] Comment on above: Order Comment: Inter face Comments:cc copy to Dr. Nicola Hernandez Vascular SurgeonOrder Date: 08/14/24Order Info: [id number] - CMPOrder Info: [id number] - TSHOrder Info: - IBCOrder Info: [id number] - FERComments: cc copy to Dr. Nicola Hernandez Vascular SurgeonOrder Info: 3024-[address] Nicola Hernandez, Vascular Surgeon Performed By: #### L 100.0100, L503.6550, L500.4050, L503.6030 ####[facility] [address] [place], [address] Glucose [Mass/Vol] 82 mg/dL Normal 74-[address] [facility] Comment on above: Order Comment: Inter face Comments:cc copy to Dr. Nicola Hernandez Vascular SurgeonOrder Date: 08/14/24Order Info: 785-11 - CMPOrder Info: [id number] - TSHOrder Info: [id number] - IBCOrder Info: [id number] - FERComments: cc copy to Dr. Nicola Hernandez Vascular SurgeonOrder Info: 3024-05 [address] Nicola Hernandez, Vascular Surgeon Performed By: #### L 100.0100, L503.6550, L500.4050, L503.6030 ####[facility] [address] [place], [address] Potassium [Moles/Vol] 4.0 mmol/L Normal 3.5-5.1 [facility] Comment on above: Order Comment: Inter face Comments:cc copy to Dr. Nicola Hernandez Vascular SurgeonOrder Date: 08/14/24Order Info: 0786-1 - CMPOrder Info: 6-3 - TSHOrder Info: [id number] - IBCOrder Info: [id number] - FERComments: cc copy to Dr. Nicola Hernandez Vascular SurgeonOrder Info: 3027 - T4Fcc copy to Dr. Nicola Hernandez, Vascular Surgeon Performed By: #### L 100.0100, L503.6550, L500.4050, L503.6030 ####[facility] [address] [place], [address] Sodium [Moles/Vol] 140 mmol/L Normal 136-[address] [facility] Comment on above: Order Comment: Inter face Comments:cc copy to Dr. Nicola Hernandez Vascular SurgeonOrder Date: 08/14/24Order Info: 785-1 - CMPOrder Info: 3 - TSHOrder Info: [id number] - IBCOrder Info: [id number] - FERComments: cc copy to Dr. Nicola Hernandez Vascular SurgeonOrder Info: 3024-7 - T4Fcc copy to Dr. Nicola Hernandez, Vascular Surgeon Performed By: #### L 100.0100, L503.6550, L500.4050, L503.6030 ####[facility] [address] [place], [address] T PROT 6.7 g/dL Normal 6.4-8.2 [facility] Comment on above: Order Comment: Inter face Comments:cc copy to Dr. Nicola Hernandez Vascular SurgeonOrder Date: 08/14/24Order Info: 07-1 - CMPOrder Info: [id number] - TSHOrder Info: [id number] - IBCOrder Info: [id number] - FERComments: cc copy to Dr. Nicola Hernandez Vascular SurgeonOrder Info: [id number] - T4Fcc copy to Dr. Nicola Hernandez, Vascular Surgeon Performed By: #### L 100.0100, L503.6550, L500.4050, L503.6030 ####[facility] [address] [place], [address] Urea nitrogen [Mass/Vol] 16 mg/dL Normal 7-18 [facility] Comment on above: Order Comment: Inter face Comments:cc copy to Dr. Nicola Hernandez, Vascular SurgeonOrder Date: 08/14/24Order Info: 0786-1 - CMPOrder Info: [id number] - TSHOrder Info: [id number] - IBCOrder Info: [id number] - FERComments: cc copy to Dr. Nicola Hernandez Vascular SurgeonOrder Info: 3024-7 - T4Fcc copy to Dr. Nicola Hernandez, Vascular Surgeon Performed By: #### L 100.0100, L503.6550, L500.4050, L503.6030 ####[facility] [address] [place], [address] Ferritinon 08-14-2024 Ferritin [Mass/Vol] 35 ng/mL Normal 8-252 [facility] Comment on above: Order Comment: Inter face Comments:cc copy to Dr. Nicola Hernandez Vascular SurgeonOrder Date: 08/14/24Order Info: 0786-1 - CMPOrder Info: [id number] - TSHOrder Info: [id number] - IBCOrder Info: [id number] - FERComments: cc copy to Dr. Nicola Hernandez, Vascular SurgeonOrder Info: 3024-7 - T4Fcc copy to Dr. Nicola Hernandez, Vascular Surgeon Performed By: #### L 100.0100, L503.6550, L500.4050, L503.6030 ####[facility] [address] [place], [address] Iron+Iron Binding Capacityon 08-14-2024 Iron [Mass/Vol] 31 ug/dL Low 50-170 [facility] Comment on above: Order Comment: Inter face Comments:cc copy to Dr. Nicola Hernandez, Vascular SurgeonOrder Date: 08/14/24Order Info: 0786- - CMPOrder Info: 3 - TSHOrder Info: [id number] - IBCOrder Info: [id number] - FERComments: cc copy to Dr. Nicola Hernandez, Vascular SurgeonOrder Info: 3024-05 - T4Fcc copy to Dr. Nicola Hernandez, Vascular Surgeon Performed By: #### L 100.0100, L503.6550, L500.4050, L503.6030 ####[facility] [address] [place], [address] IRON SATURATION 9.1 Low 15.0-55.0 [facility] Comment on above: Order Comment: Inter face Comments:cc copy to Dr. Nicola Hernandez, Vascular SurgeonOrder Date: 08/14/24Order Info: 785-11 - CMPOrder Info: [id number] - TSHOrder Info: [id number] - IBCOrder Info: [id number] - FERComments: cc copy to Dr. Nicola Hernandez, Vascular SurgeonOrder Info: 3024-05 - T4Fcc copy to Dr. Nicola Hernandez, Vascular Surgeon Performed By: #### L 100.0100, L503.6550, L500.4050, L503.6030 ####[facility] [address] [place], [address] TIBC 339 ug/dL Normal 250-450 [facility] Comment on above: Order Comment: Inter face Comments:cc copy to Dr. Nicola Hernandez Vascular SurgeonOrder Date: 08/14/24Order Info: 07 - CMPOrder Info: [id number] - TSHOrder Info: [id number] - IBCOrder Info: [id number] - FERComments: cc copy to Dr. Nicola Hernandez Vascular SurgeonOrder Info: 3024-05 - T4Fcc copy to Dr. Nicola Hernandez, Vascular Surgeon Performed By: #### L 100.0100, L503.6550, L500.4050, L503.6030 ####[facility] [address] [place], [address] T4 Free Directon 08-14-2024 T4 FREE DIRECT 1.18 ng/dL Normal 0.76-1.46 [facility] Comment on above: Order Comment: Inter face Comments:cc copy to Dr. Nicola Hernandez, Vascular SurgeonOrder Date: 08/14/24Order Info: 0786-1 - CMPOrder Info: [id number] - TSHOrder Info: [id number] - IBCOrder Info: [id number] - FERComments: cc copy to Dr. Nicola Hernandez, Vascular SurgeonOrder Info: 3027 - T4Fcc copy to Dr. Nicola Hernandez, Vascular Surgeon Performed By: #### L 506.0400, L501.9520 ####[facility] [address] [facility] [address] [place], [place], [address] Thyroid Stim Hormone (TSH)on 08-14-2024 TSH 1.650 uIU/mL Normal 0.358-3.74 0 [facility] Comment on above: Order Comment: Inter face Comments:cc copy to Dr. Nicola Hernandez, Vascular SurgeonOrder Date: 08/14/24Order Info: 0786-1 - CMPOrder Info: [id number] - TSHOrder Info: [id number] - IBCOrder Info: [id number] - FERComments: cc copy to Dr. Nicola Hernandez, Vascular SurgeonOrder Info: 7 - T4Fcc copy to Dr. Nicola Hernandez, Vascular Surgeon Performed By: #### L 506.0400, L501.9520 ####[facility] [address] [place], [place], [address] Absolute lymphocyte countOrd ered By: Daron Benton on 02-29-2024 Lymphocytes Auto (Unsp spec) [#/Vol] 1.00 10*3/uL 0.83-4.51 [facility] Automated lymphocyte count a s percentage of total leukocytesOrdered By: Daron Benton on 02-29-2024 Lymphocytes/100 WBC Auto (Unsp spec) 20.5 % 19-41 [facility] Basophil percentageOrdered B y: Daron Benton on 02-29-2024 Basophil percentage 10.4 g/dL 12.0-15.0 [facility] Basophil percentage 72 mg/dL 74-106 [facility] Basophil percentage 6.4 g/dL 6.4-8.2 [facility] Basophil percentage 0.30 mg/dL 0.20-1.00 [facility] Basophil percentage 139 mmol/L 136-145 [facility] Basophil percentage 3.9 mmol/L 3.5-5.1 [facility] Basophil percentage 105 mmol/L 98-107 [facility] Basophils (Bld) [#/Vol] 4.9 10*3/uL 4.4-11.0 [facility] Basophils (Bld) [#/Vol] 3.1 10*3/uL 2.0-7.7 [facility] Basophils/100 WBC (Bld) 63.6 % 47-70 [facility] Basophils/100 WBC (Bld) 8.8 % 0-10 [facility] Basophils/100 WBC (Bld) 5.1 % 0-5 [facility] Basophils/100 WBC (Bld) 1.4 % 0-1 [facility] Blood manual differential co mment interpretation (narrative result)Ordered By: Daron Benton on 02-29-2024 Manual differential comment Jimy (Bld) [Interp] SCANNED [facility] Determination of erythrocyte mean corpuscular volume (MCV)Ordered By: Daron Benton on 02-29-2024 MCV (RBC) [Entitic vol] 84.6 fL 81-99 [facility] Erythrocyte distribution wid th ratioOrdered By: Daron Benton on 02-29-2024 Erythrocyte distribution width (RBC) [Ratio] 20.3 % 11.6-14.6 [facility] Erythrocyte distribution wid th standard deviationOrdered By: Daron Benton on 02-29-2024 Erythrocyte distribution width (RBC) [Entitic vol] 62.6 fL 35.1-43.9 [facility] Hematocrit Auto (Bld) [Volum e fraction]Ordered By: Daron Benton on 02-29-2024 Hematocrit (Bld) [Volume fraction] 35.7 % 37-47 [facility] Hemoglobin in reticulocytes (mass per reticulocyte)Ordered By: Daron Benton on 02-29-2024 Hemoglobin (Reticulocytes) [Entitic mass] 30.1 pg 30-35 [facility] Immature granulocytes/100 WB C Auto (Bld)Ordered By: Daron Benton on 02-29-2024 Immature granulocytes/100 WBC (Bld) 0.600 % 0.0-0.9 [facility] No Panel InformationOrdered By: Daron Benton on 02-29-2024 24.6 pg 27.0-32.0 [facility] 29.1 g/dL 32-36 [facility] 211 K/mm3 150-450 [facility] 10.0 fl 6.2-12.0 [facility] 0 % 0-5 [facility] 12.20 % 3.00-15.90 [facility] 63 mL/min >60 [facility] 76 mL/min >60 [facility] 13.8 RATIO 10-20 [facility] 3.5 g/dL 2.2-4.2 [facility] 0.8 RATIO 0.9-2.4 [facility] 134 U/L 45-117 [facility] 13 U/L 13-56 [facility] 31.0 mmol/L 21.0-32.0 [facility] 386 pg/mL 211-911 [facility] 292 ng/mL 8-252 [facility] 8.20 ng/mL 3.1-55.4 [facility] RBC Auto (Bld) [#/Vol]Ordere d By: Daron Benton on 02-29-2024 RBC (Bld) [#/Vol] 4.22 10*6/uL 4.2-5.4 [facility] Reticulocytes Auto (Bld) [#/ Vol]Ordered By: Daron Benton on 02-29-2024 Reticulocytes/100 RBC (Bld) 1.50 % 0.5-1.5 [facility] Serum or plasma calcium stefania urement (mass/volume)Ordered By: Daron Benton on 02-29-2024 Calcium [Mass/Vol] 8.8 mg/dL 8.5-10.[address] [facility] Serum or plasma creatinine m easurement (mass/volume)Ordered By: Daron Benton on 02-29-2024 Creatinine [Mass/Vol] 0.94 mg/dL 0.55-1.02 [facility] Serum or plasma urea nitroge n measurement (mass/volume)Ordered By: Daron Benton on 02-29-2024 Urea nitrogen [Mass/Vol] 13 mg/dL 7-18 [facility] Thin prep Papanicolaou smear with manual screeningOrdered By: Daorn Benton on 02-29-2024 Thin prep Papanicolaou smear with manual screening 2.9 g/dL 3.2-5.0 [facility] Thin prep Papanicolaou smear with manual screening 15 U/L 15-37 [facility] Thin prep Papanicolaou smear with manual screening 3 5-15 [facility] Absolute lymphocyte countOrd ered By: Roman Mckeon on 02-25-2024 Lymphocytes Auto (Unsp spec) [#/Vol] 1.08 10*3/uL 0.83-4.51 [facility] Activated partial thrombopla stin time (aPTT) in platelet poor plasma by coagulation aOrdered By: Daron Cortes on 02-25-2024 aPTT Coag (PPP) [Time] 33.2 s 24.1-36.2 [facility] [place] Automated lymphocyte count a s percentage of total leukocytesOrdered By: Roman Mckeon on 02-25-2024 Lymphocytes/100 WBC Auto (Unsp spec) 16.3 % 19-41 [facility] Basophil percentageOrdered B y: Eva Mortensen on 02-25-2024 Basophil percentage 10.7 g/dL 12.0-15.0 [facility] Basophil percentageOrdered B y: Roman Mckeon on 02-25-2024 Basophil percentage 85 mg/dL 74-106 [facility] Basophil percentage 141 mmol/L 136-145 [facility] Basophil percentage 3.8 mmol/L 3.5-5.1 [facility] Basophil percentage 110 mmol/L 98-107 [facility] Basophils (Bld) [#/Vol] 6.6 10*3/uL 4.4-11.0 [facility] Basophils (Bld) [#/Vol] 4.6 10*3/uL 2.0-7.7 [facility] Basophils/100 WBC (Bld) 68.4 % 47-70 [facility] Basophils/100 WBC (Bld) 11.3 % 0-10 [facility] Basophils/100 WBC (Bld) 2.9 % 0-5 [facility] Basophils/100 WBC (Bld) 0.5 % 0-1 [facility] Determination of erythrocyte mean corpuscular volume (MCV)Ordered By: Roman Mckeon on 02-25-2024 MCV (RBC) [Entitic vol] 83.5 fL 81-99 [facility] Erythrocyte distribution wid th ratioOrdered By: Roman Mckeon on 02-25-2024 Erythrocyte distribution width (RBC) [Ratio] 19.6 % 11.6-14.6 [facility] Erythrocyte distribution wid th standard deviationOrdered By: Roman Mckeon on 02-25-2024 Erythrocyte distribution width (RBC) [Entitic vol] 57.3 fL 35.1-43.9 [facility] Hematocrit Auto (Bld) [Volum e fraction]Ordered By: Roman Mckeon on 02-25-2024 Hematocrit (Bld) [Volume fraction] 34.3 % 37-47 [facility] Immature granulocytes/100 WB C Auto (Bld)Ordered By: Roman Mckeon on 02-25-2024 Immature granulocytes/100 WBC (Bld) 0.600 % 0.0-0.9 [facility] No Panel InformationOrdered By: Roman Mckeon on 02-25-2024 25.1 pg 27.0-32.0 [facility] 30.0 g/dL 32-36 [facility] 205 K/mm3 150-450 [facility] 9.6 fl 6.2-12.0 [facility] 0 % 0-5 [facility] 70 mL/min >60 [facility] 85 mL/min >60 [facility] 55.02 ml/min [facility] 14.1 RATIO 10-20 [facility] 26.0 mmol/L 21.0-32.0 [facility] No Panel InformationOrdered By: Daron Cortes on 02-25-2024 13.8 SECONDS 11.7-14.9 [facility] 1.1 [facility] RBC Auto (Bld) [#/Vol]Ordere d By: Roman Mckeon on 02-25-2024 RBC (Bld) [#/Vol] 4.11 10*6/uL 4.2-5.4 [facility] Serum or plasma calcium stefania urement (mass/volume)Ordered By: Roman Mckeon on 02-25-2024 Calcium [Mass/Vol] 8.5 mg/dL 8.5-10.[address] [facility] Serum or plasma creatinine m easurement (mass/volume)Ordered By: Roman Mckeon on 02-25-2024 Creatinine [Mass/Vol] 0.85 mg/dL 0.55-1.02 [facility] Serum or plasma thyroid stim ulating hormone (TSH) measurement (units/volume)Ordered By: Daron Cortes on 02-25-2024 TSH Qn 3.07 uIU/mL 0.358-3.74 [facility] Serum or plasma urea nitroge n measurement (mass/volume)Ordered By: Roman Mckeon on 02-25-2024 Urea nitrogen [Mass/Vol] 12 mg/dL 7-18 [facility] Thin prep Papanicolaou smear with manual screeningOrdered By: Roman Mckeon on 02-25-2024 Thin prep Papanicolaou smear with manual screening 5 5-15 [facility] Basophil percentageOrdered B y: Roman Mckeon on 02-23-2024 Basophil percentage 2.6 mg/dL 2.5-4.9 [facility] No Panel InformationOrdered By: Roman Mckeon on 02-23-2024 28 pg/mL 3.0-54.0 [facility] 2.0 mg/dL 1.6-2.6 [facility] Bacteria identified Respirat ory culture Nom (Unsp spec)Ordered By: Roman Mckeon on 02-22-2024 Microbial respiratory culture Presumptive C albicans [facility] Basophil percentageOrdered B y: Roman Mckeon on 02-22-2024 Basophil percentage 5.2 g/dL 6.4-8.2 [facility] Basophil percentage 0.20 mg/dL 0.20-1.00 [facility] Gram stain for investigation of transfusion reactionOrdered By: Roman Mckeon on 02-22-2024 Microscopic observation Gram stain Nom (Unsp spec) [facility] No Panel InformationOrdered By: Roman Mckeon on 02-22-2024 3.0 g/dL 2.2-4.2 [facility] 0.7 RATIO 0.9-2.4 [facility] 133 U/L 45-117 [facility] 8 U/L 13-56 [facility] Thin prep Papanicolaou smear with manual screeningOrdered By: Roman Mckeon on 02-22-2024 Thin prep Papanicolaou smear with manual screening 2.2 g/dL 3.2-5.0 [facility] Thin prep Papanicolaou smear with manual screening 9 U/L 15-37 [facility] Absolute lymphocyte countOrd ered By: Jeffy Willoughby on 02-19-2024 Lymphocytes Auto (Unsp spec) [#/Vol] 1.17 10*3/uL 0.83-4.51 [facility] Automated lymphocyte count a s percentage of total leukocytesOrdered By: Jeffy Willoughby on 02-19-2024 Lymphocytes/100 WBC Auto (Unsp spec) 14.5 % 19-41 [facility] Basophil percentageOrdered B y: Jeffy Willoughby on 02-19-2024 Basophil percentage 1.0 mmol/L 0.4-2.0 [facility] Basophil percentage 6.6 g/dL 12.0-15.0 [facility] Basophil percentage 128 mg/dL 74-106 [facility] Basophil percentage 137 mmol/L 136-145 [facility] Basophil percentage 3.8 mmol/L 3.5-5.1 [facility] Basophil percentage 106 mmol/L 98-107 [facility] Basophils (Bld) [#/Vol] 8.1 10*3/uL 4.4-11.0 [facility] Basophils (Bld) [#/Vol] 5.9 10*3/uL 2.0-7.7 [facility] Basophils/100 WBC (Bld) 73.5 % 47-70 [facility] Basophils/100 WBC (Bld) 8.5 % 0-10 [facility] Basophils/100 WBC (Bld) 2.6 % 0-5 [facility] Basophils/100 WBC (Bld) 0.4 % 0-1 [facility] Determination of erythrocyte mean corpuscular volume (MCV)Ordered By: Jeffy Willoughby on 02-19-2024 MCV (RBC) [Entitic vol] 77.2 fL 81-99 [facility] Erythrocyte distribution wid th ratioOrdered By: Jeffyaura Willoughby on 02-19-2024 Erythrocyte distribution width (RBC) [Ratio] 17.1 % 11.6-14.6 [facility] Erythrocyte distribution wid th standard deviationOrdered By: Jeffyaura Willoughby on 02-19-2024 Erythrocyte distribution width (RBC) [Entitic vol] 48.0 fL 35.1-43.9 [facility] Hematocrit Auto (Bld) [Volum e fraction]Ordered By: Jeffy Willoughby on 02-19-2024 Hematocrit (Bld) [Volume fraction] 22.4 % 37-47 [facility] Immature granulocytes/100 WB C Auto (Bld)Ordered By: Jeffyaura Willoughby on 02-19-2024 Immature granulocytes/100 WBC (Bld) 0.500 % 0.0-0.9 [facility] Lower GI hemoglobin IA Ql (S tl)Ordered By: Jeffyaura Willoughby on 02-19-2024 Stool gastrointestinal hemoglobin detection by immunologic method Positive [facility] No Panel InformationOrdered By: Jeffyaura Willoughby on 02-19-2024 15 pg/mL 3.0-54.0 [facility] No growth in 5 days. [facility] 22.8 pg 27.0-32.0 [facility] 29.5 g/dL 32-36 [facility] 193 K/mm3 150-450 [facility] 10.0 fl 6.2-12.0 [facility] 0 % 0-5 [facility] 58 mL/min >60 [facility] 71 mL/min >60 [facility] 49.70 ml/min [facility] 21.0 RATIO 10-20 [facility] 25.0 mmol/L 21.0-32.0 [facility] RBC Auto (Bld) [#/Vol]Ordere d By: Jeffy Willoughby on 02-19-2024 RBC (Bld) [#/Vol] 2.90 10*6/uL 4.2-5.[address] [facility] Serum or plasma calcium stefania urement (mass/volume)Ordered By: Jeffy Willoughby on 02-19-2024 Calcium [Mass/Vol] 8.3 mg/dL 8.5-10.[address] [facility] Serum or plasma creatinine m easurement (mass/volume)Ordered By: Jeffyaura Willoughby on 02-19-2024 Creatinine [Mass/Vol] 1.00 mg/dL 0.55-1.02 [facility] Serum or plasma urea nitroge n measurement (mass/volume)Ordered By: Jeffyaura Willoughby on 02-19-2024 Urea nitrogen [Mass/Vol] 21 mg/dL 7-18 [facility] Thin prep Papanicolaou smear with manual screeningOrdered By: Jeffyaura Willoughby on 02-19-2024 Thin prep Papanicolaou smear with manual screening 128 mg/dL 74-106 [facility] Thin prep Papanicolaou smear with manual screening 6 5-15 [facility] Urine Legionella pneumophila antigen detectionOrdered By: Roman Mckeon on 02-19-2024 L. pneumophila Ag Ql (U) [facility] Absolute lymphocyte countOrd ered By: Daron Benton on 01-18-2024 Lymphocytes Auto (Unsp spec) [#/Vol] 1.27 10*3/uL 0.83-4.51 [facility] Automated lymphocyte count a s percentage of total leukocytesOrdered By: Daron Benton on 01-18-2024 Lymphocytes/100 WBC Auto (Unsp spec) 11.7 % 19-41 [facility] Basophil percentageOrdered B y: Daron Benton on 01-18-2024 Basophil percentage 8.9 g/dL 12.0-15.0 [facility] Basophil percentage 96 mg/dL 74-106 [facility] Basophil percentage 6.8 g/dL 6.4-8.2 [facility] Basophil percentage 0.40 mg/dL 0.20-1.00 [facility] Basophil percentage 139 mmol/L 136-145 [facility] Basophil percentage 4.1 mmol/L 3.5-5.1 [facility] Basophil percentage 106 mmol/L 98-107 [facility] Basophils (Bld) [#/Vol] 10.9 10*3/uL 4.4-11.0 [facility] Basophils (Bld) [#/Vol] 8.1 10*3/uL 2.0-7.7 [facility] Basophils/100 WBC (Bld) 74.9 % 47-70 [facility] Basophils/100 WBC (Bld) 8.6 % 0-10 [facility] Basophils/100 WBC (Bld) 2.0 % 0-5 [facility] Basophils/100 WBC (Bld) 0.8 % 0-1 [facility] Determination of erythrocyte mean corpuscular volume (MCV)Ordered By: Daron Benton on 01-18-2024 MCV (RBC) [Entitic vol] 88.1 fL 81-99 [facility] Erythrocyte distribution wid th ratioOrdered By: Daron Benton on 01-18-2024 Erythrocyte distribution width (RBC) [Ratio] 16.0 % 11.6-14.6 [facility] Erythrocyte distribution wid th standard deviationOrdered By: Daron Benton on 01-18-2024 Erythrocyte distribution width (RBC) [Entitic vol] 51.1 fL 35.1-43.9 [facility] Hematocrit Auto (Bld) [Volum e fraction]Ordered By: Daron Benton on 01-18-2024 Hematocrit (Bld) [Volume fraction] 30.4 % 37-47 [facility] Hemoglobin in reticulocytes (mass per reticulocyte)Ordered By: Daron Benton on 01-18-2024 Hemoglobin (Reticulocytes) [Entitic mass] 25.6 pg 30-35 [facility] Immature granulocytes/100 WB C Auto (Bld)Ordered By: Daron Benton on 01-18-2024 Immature granulocytes/100 WBC (Bld) 2.000 % 0.0-0.9 [facility] No Panel InformationOrdered By: Daron Benton on 01-18-2024 25.8 pg 27.0-32.0 [facility] 29.3 g/dL 32-36 [facility] 449 K/mm3 150-450 [facility] 9.0 fl 6.2-12.0 [facility] 0 % 0-5 [facility] 34.00 % 3.00-15.90 [facility] 55 mL/min >60 [facility] 66 mL/min >60 [facility] 18.9 RATIO 10-20 [facility] 4.0 g/dL 2.2-4.2 [facility] 0.7 RATIO 0.9-2.4 [facility] 161 U/L 45-117 [facility] 13 U/L 13-56 [facility] 28.0 mmol/L 21.0-32.0 [facility] 2.2 pg/mL 2.18-3.98 [facility] 808 pg/mL 211-911 [facility] 82 ng/mL 8-252 [facility] 9.40 ng/mL 3.1-55.4 [facility] RBC Auto (Bld) [#/Vol]Ordere d By: Daron Benton on 01-18-2024 RBC (Bld) [#/Vol] 3.45 10*6/uL 4.2-5.4 [facility] Reticulocytes Auto (Bld) [#/ Vol]Ordered By: Daron Benton on 01-18-2024 Reticulocytes/100 RBC (Bld) 3.70 % 0.5-1.5 [facility] Serum or plasma calcium stefania urement (mass/volume)Ordered By: Daron Benton on 01-18-2024 Calcium [Mass/Vol] 8.7 mg/dL 8.5-10.[address] [facility] Serum or plasma creatinine m easurement (mass/volume)Ordered By: Daron Benton on 01-18-2024 Creatinine [Mass/Vol] 1.06 mg/dL 0.55-1.02 [facility] Serum or plasma thyroid stim ulating hormone (TSH) measurement (units/volume)Ordered By: Daron Benton on 01-18-2024 TSH Qn 3.92 uIU/mL 0.358-3.74 [facility] Serum or plasma urea nitroge n measurement (mass/volume)Ordered By: Daron Benton on 01-18-2024 Urea nitrogen [Mass/Vol] 20 mg/dL 7-18 [facility] Thin prep Papanicolaou smear with manual screeningOrdered By: Daron Benton on 01-18-2024 Thin prep Papanicolaou smear with manual screening 2.8 g/dL 3.2-5.0 [facility] Thin prep Papanicolaou smear with manual screening 12 U/L 15-37 [facility] Thin prep Papanicolaou smear with manual screening 5 5-15 [facility] Thin prep Papanicolaou smear with manual screening 1.39 ng/dL 0.76-1.46 [facility] Absolute lymphocyte countOrd ered By: Jori Garcia on 01-11-2024 Lymphocytes Auto (Unsp spec) [#/Vol] 0.76 10*3/uL 0.83-4.51 [facility] Automated lymphocyte count a s percentage of total leukocytesOrdered By: Jori Garcia on 01-11-2024 Lymphocytes/100 WBC Auto (Unsp spec) 5.2 % 19-41 [facility] Basophil percentageOrdered B y: Jori Garcia on 01-11-2024 Basophil percentage 1.3 mmol/L 0.4-2.0 [facility] Basophil percentage 0 SEEN /hpf 0-5 [facility] Basophil percentage 10.2 g/dL 12.0-15.0 [facility] Basophil percentage 159 mg/dL 74-106 [facility] Basophil percentage 137 mmol/L 136-145 [facility] Basophil percentage 3.9 mmol/L 3.5-5.1 [facility] Basophil percentage 104 mmol/L 98-107 [facility] Basophils (Bld) [#/Vol] 14.6 10*3/uL 4.4-11.0 [facility] Basophils (Bld) [#/Vol] 12.4 10*3/uL 2.0-7.7 [facility] Basophils/100 WBC (Bld) 85.1 % 47-70 [facility] Basophils/100 WBC (Bld) 7.7 % 0-10 [facility] Basophils/100 WBC (Bld) 0.2 % 0-5 [facility] Basophils/100 WBC (Bld) 0.5 % 0-1 [facility] Bilirubin Test strip Ql (U)O rdered By: Jori Garcia on 01-11-2024 Bilirubin Ql (U) Negative Negative [facility] Determination of erythrocyte mean corpuscular volume (MCV)Ordered By: Jori Garcia on 01-11-2024 MCV (RBC) [Entitic vol] 86.4 fL 81-99 [facility] Erythrocyte distribution wid th ratioOrdered By: Jori Garcia on 01-11-2024 Erythrocyte distribution width (RBC) [Ratio] 15.2 % 11.6-14.6 [facility] Erythrocyte distribution wid th standard deviationOrdered By: Jori Garcia on 01-11-2024 Erythrocyte distribution width (RBC) [Entitic vol] 48.4 fL 35.1-43.9 [facility] Hematocrit Auto (Bld) [Volum e fraction]Ordered By: Jori Garcia on 01-11-2024 Hematocrit (Bld) [Volume fraction] 32.4 % 37-47 [facility] Immature granulocytes/100 WB C Auto (Bld)Ordered By: Jori Garcia on 01-11-2024 Immature granulocytes/100 WBC (Bld) 1.300 % 0.0-0.9 [facility] Ketones Test strip Ql (U)Ord ered By: Jori Garcia on 01-11-2024 Ketones Ql (U) Negative Negative [facility] Mucus LM Ql (Urine sed)Order ed By: Jori Garcia on 01-11-2024 Mucus Ql (Urine sed) 0 SEEN /hpf [facility] Nitrite Test strip Ql (U)Ord ered By: Jori Garcia on 01-11-2024 Nitrite Ql (U) Negative Negative [facility] No Panel InformationOrdered By: Jori Garcia on 01-11-2024 17 pg/mL 3.0-54.0 [facility] 0 SEEN /hpf 0-5 [facility] 27.2 pg 27.0-32.0 [facility] 31.5 g/dL 32-36 [facility] 308 K/mm3 150-450 [facility] 9.2 fl 6.2-12.0 [facility] 0 % 0-5 [facility] 54 mL/min >60 [facility] 65 mL/min >60 [facility] 43.08 ml/min [facility] 16.8 RATIO 10-20 [facility] 2.1 mg/dL 1.6-2.6 [facility] 26.0 mmol/L 21.0-32.0 [facility] Protein Test strip Ql (U)Ord ered By: Jori Garcia on 01-11-2024 Protein Ql (U) Negative Negative [facility] RBC Auto (Bld) [#/Vol]Ordere d By: Jori Garcia on 01-11-2024 RBC (Bld) [#/Vol] 3.75 10*6/uL 4.2-5.[address] [facility] Serum or plasma calcium stefania urement (mass/volume)Ordered By: Jori Garcia on 01-11-2024 Calcium [Mass/Vol] 9.1 mg/dL 8.5-10.1 [facility] Serum or plasma creatinine m easurement (mass/volume)Ordered By: Jori Garcia on 01-11-2024 Creatinine [Mass/Vol] 1.07 mg/dL 0.55-1.[address] [facility] Serum or plasma urea nitroge n measurement (mass/volume)Ordered By: Jori Garcia on 01-11-2024 Urea nitrogen [Mass/Vol] 18 mg/dL 7-18 [facility] Squamous epithelial cells de tection in urine sediment by light microscopyOrdered By: Jori Garcia on 01-11-2024 Epithelial cells.squamous LM Ql (Urine sed) 0 SEEN /hpf 5-10 [facility] Thin prep Papanicolaou smear with manual screeningOrdered By: Jori Garcia on 01-11-2024 Thin prep Papanicolaou smear with manual screening 7 5-15 [facility] Urine blood detectionOrdered By: Jori Garcia on 01-11-2024 RBC Ql (U) Negative Negative [facility] Urine clarityOrdered By: Kasandra Garcia on 01-11-2024 Clarity (U) Clear Clear [facility] Urine color determinationOrd ered By: Jori Garcia on 01-11-2024 Color (U) Yellow Yellow [facility] Urine glucose detectionOrder ed By: Jori Garcia on 01-11-2024 Glucose Ql (U) Normal mg/dl Normal [facility] Urine leukocyte esterase det ection by dipstickOrdered By: Jori Garcia on 01-11-2024 Leukocyte esterase Test strip Ql (U) 25 /ul Negative [facility] Urine pHOrdered By: Jori Garcia on 01-11-2024 pH (U) 7.0 [pH] 5.0 - 8.0 [facility] Urine sediment bacteria coun t by microscopy (number/high power field)Ordered By: Jori Garcia on 01-11-2024 Bacteria LM.HPF (Urine sed) [#/Area] 0 /[HPF] None Seen [facility] Urine specific gravity measu rementOrdered By: Jori Garcia on 01-11-2024 Specific gravity (U) [Rel density] 1.010 1.002-1.03 0 [facility] Urine urobilinogen measureme ntOrdered By: Jori Garcia on 01-11-2024 Urobilinogen Ql (U) Normal mg/dl Normal [facility] Basophil percentageOrdered B y: Betsey Lindquist on 12-21-2023 Basophil percentage 9.9 g/dL 12.0-15.0 [facility] Hematocrit Auto (Bld) [Volum e fraction]Ordered By: Betsey Lindquist on 12-21-2023 Hematocrit (Bld) [Volume fraction] 32.2 % 37-47 [facility] Absolute lymphocyte countOrd ered By: Sachin Murillo on 12-07-2023 Lymphocytes Auto (Unsp spec) [#/Vol] 1.31 10*3/uL 0.83-4.51 [facility] Automated lymphocyte count a s percentage of total leukocytesOrdered By: Sachin Murillo on 12-07-2023 Lymphocytes/100 WBC Auto (Unsp spec) 17.9 % 19-41 [facility] Basophil percentageOrdered B y: Sachin Murillo on 12-07-2023 Basophil percentage 9.0 g/dL 12.0-15.0 [facility] Basophil percentage 94 mg/dL 74-106 [facility] Basophil percentage 142 mmol/L 136-145 [facility] Basophil percentage 3.6 mmol/L 3.5-5.1 [facility] Basophil percentage 111 mmol/L 98-107 [facility] Basophils (Bld) [#/Vol] 7.3 10*3/uL 4.4-11.0 [facility] Basophils (Bld) [#/Vol] 5.2 10*3/uL 2.0-7.7 [facility] Basophils/100 WBC (Bld) 71.0 % 47-70 [facility] Basophils/100 WBC (Bld) 9.8 % 0-10 [facility] Basophils/100 WBC (Bld) 0.1 % 0-1 [facility] Determination of erythrocyte mean corpuscular volume (MCV)Ordered By: Sachin Murillo on 12-07-2023 MCV (RBC) [Entitic vol] 90.7 fL 81-99 [facility] Erythrocyte distribution wid th ratioOrdered By: Sachin Murillo on 12-07-2023 Erythrocyte distribution width (RBC) [Ratio] 15.6 % 11.6-14.6 [facility] Erythrocyte distribution wid th standard deviationOrdered By: Sachin Murillo on 12-07-2023 Erythrocyte distribution width (RBC) [Entitic vol] 51.9 fL 35.1-43.9 [facility] Hematocrit Auto (Bld) [Volum e fraction]Ordered By: Sachin Murillo on 12-07-2023 Hematocrit (Bld) [Volume fraction] 27.4 % 37-47 [facility] Immature granulocytes/100 WB C Auto (Bld)Ordered By: Sachin Murillo on 12-07-2023 Immature granulocytes/100 WBC (Bld) 1.100 % 0.0-0.9 [facility] No Panel InformationOrdered By: Sachin Murillo on 12-07-2023 29.8 pg 27.0-32.0 [facility] 32.8 g/dL 32-36 [facility] 216 K/mm3 150-450 [facility] 0 % 0-5 [facility] 58 mL/min >60 [facility] 70 mL/min >60 [facility] 46.47 ml/min [facility] 29.7 RATIO 10-20 [facility] 26.0 mmol/L 21.0-32.0 [facility] Platelet mean volume Jordan-Ec ker (Bld) [Entitic vol]Ordered By: Sachin Murillo on 12-07-2023 Platelet mean volume (Bld) [Entitic vol] 9.5 fL 6.2-12.0 [facility] RBC Auto (Bld) [#/Vol]Ordere d By: Sachin Murillo on 12-07-2023 RBC (Bld) [#/Vol] 3.02 10*6/uL 4.2-5.4 [facility] Serum or plasma calcium stefania urement (mass/volume)Ordered By: Sachin Murillo on 12-07-2023 Calcium [Mass/Vol] 7.7 mg/dL 8.5-10.[address] [facility] Serum or plasma creatinine m easurement (mass/volume)Ordered By: Sachin Murillo on 12-07-2023 Creatinine [Mass/Vol] 1.01 mg/dL 0.55-1.02 [facility] Serum or plasma urea nitroge n measurement (mass/volume)Ordered By: Sachin Murillo on 12-07-2023 Urea nitrogen [Mass/Vol] 30 mg/dL 7-18 [facility] Thin prep Papanicolaou smear with manual screeningOrdered By: Sachin Murillo on 12-07-2023 Thin prep Papanicolaou smear with manual screening 5 5-15 [facility] Iron measurement (mass/mass) Ordered By: Sachin Murillo on 12-06-2023 Iron (Unsp spec) [Mass/Mass] 67 ug/dL 50-170 [facility] No Panel InformationOrdered By: Sachin Murillo on 12-06-2023 203 ug/dL 250-450 [facility] 96 ng/mL 8-252 [facility] Serum or plasma iron saturat ion measurement (mass fraction)Ordered By: Sachin Murillo on 12-06-2023 Iron saturation [Mass fraction] 33.0 % 15.0-55.0 [facility] Basophil percentageOrdered B y: Jorge Hurtado on 12-04-2023 Basophil percentage 13.0 umol/L 11-32 [facility] Basophil percentage 6.4 g/dL 6.4-8.2 [facility] Basophil percentage 0.20 mg/dL 0.20-1.00 [facility] Blood manual differential co mment interpretation (narrative result)Ordered By: Sachin Murillo on 12-04-2023 Manual differential comment Jimy (Bld) [Interp] SCANNED [facility] Direct bilirubinOrdered By: Jorge Hurtado on 12-04-2023 Bilirubin.direct [Mass/Vol] 0.11 mg/dL 0.00-0.30 [facility] No Panel InformationOrdered By: Jorge Hurtado on 12-04-2023 3.7 g/dL 2.2-4.2 [facility] 127 U/L 45-117 [facility] 15 U/L 13-56 [facility] 1.65 uIU/mL 0.358-3.74 [facility] Serum or plasma albumin stefania urement (mass/volume)Ordered By: Jorge Hurtado on 12-04-2023 Albumin [Mass/Vol] 2.7 g/dL 3.2-5.[address] [facility] Thin prep Papanicolaou smear with manual screeningOrdered By: Jorge Hurtado on 12-04-2023 Thin prep Papanicolaou smear with manual screening 17 U/L 15-37 [facility] Assessment of wrist artery p atency prior to arterial punctureOrdered By: Sachin Murillo on 12-03-2023 Arterial patency Wrist artery --pre arterial puncture Positive [facility] Base excessOrdered By: Jarred Murillo on 12-03-2023 Base excess Calc (BldV) [Moles/Vol] -3 mmol/L -2-2 [facility] Basophil percentageOrdered B y: Sachin Murillo on 12-03-2023 Basophil percentage 21.5 mmol/L 22-26 [facility] Basophils/100 WBC (Bld) 97 % 95-99 [facility] Basophil percentageOrdered B y: Roman Mckeon on 12-03-2023 Basophil percentage 3.0 mg/dL 2.5-4.9 [facility] CO2 (BldA) [Partial pressure ]Ordered By: Sachin Murillo on 12-03-2023 CO2 (Bld) [Partial pressure] 34.8 mm[Hg] 35-45 [facility] Glucose Glucometer (BldC) [M ass/Vol]Ordered By: Sachin Murillo on 12-03-2023 Glucose [Mass/Vol] 175 mg/dL 74-[address] [facility] Measurement, pHOrdered By: Carlos Murillo on 12-03-2023 pH (Unsp spec) 7.40 [pH] 7.35-7.45 [facility] No Panel InformationOrdered By: Sachin Murillo on 12-03-2023 ART [facility] L Radial [facility] Not entered [facility] Cannula [facility] 1.0 [facility] 23 mmol/L [facility] No Panel InformationOrdered By: Roman Mckeon on 12-03-2023 2.6 mg/dL 1.6-2.6 [facility] Oxygen (BldA) [Partial press ure]Ordered By: Sachin Murillo on 12-03-2023 Oxygen (Bld) [Partial pressure] 93 mmHG 75-100 [facility] Absolute lymphocyte countOrd ered By: Gabriella Simpson on 12-02-2023 Lymphocytes Auto (Unsp spec) [#/Vol] 1.89 10*3/uL 0.83-4.51 [facility] Basophil percentageOrdered B y: Gabriella Simpson on 12-02-2023 Basophil percentage 0 SEEN /hpf 0-5 [facility] Basophil percentage 109 mg/dL 74-106 [facility] Basophil percentage 140 mmol/L 136-145 [facility] Basophil percentage 3.7 mmol/L 3.5-5.1 [facility] Basophil percentage 107 mmol/L 98-107 [facility] Basophils (Bld) [#/Vol] 6.6 10*3/uL 4.4-11.0 [facility] Basophils (Bld) [#/Vol] 3.8 10*3/uL 2.0-7.7 [facility] Basophils/100 WBC (Bld) 56.3 % 47-70 [facility] Basophils/100 WBC (Bld) 0.9 % 0-5 [facility] Basophils/100 WBC (Bld) 0.8 % 0-1 [facility] Bilirubin Test strip Ql (U)O rdered By: Gabriella Simpson on 12-02-2023 Bilirubin Ql (U) Negative Negative [facility] Blood erythrocytes count (nu mber/volume)Ordered By: Gabriella Simpson on 12-02-2023 RBC (Bld) [#/Vol] 4.21 10*6/uL 4.2-5.4 [facility] Blood hemoglobin measurement (mass/volume)Ordered By: Gabriella Simpson on 12-02-2023 Hemoglobin (Bld) [Mass/Vol] 12.5 g/dL 12.0-15.0 [facility] Blood lymphocytes/100 leukoc ytesOrdered By: Gabriella Simpson on 12-02-2023 Lymphocytes/100 WBC (Bld) 28.5 % 19-41 [facility] Blood monocytes/100 leukocyt esOrdered By: Gabriella Simpson on 12-02-2023 Monocytes/100 WBC (Bld) 12.7 % 0-10 [facility] Blood platelet mean volumeOr dered By: Gabriella Simpson on 12-02-2023 Platelet mean volume (Bld) [Entitic vol] 9.1 fL 6.2-12.0 [facility] Culture, urineOrdered By: Edgar Mckeon on 12-02-2023 Bacteria identified Cx Nom (U) Culture exhibits no growth. [facility] Bacteria identified Cx Nom (U) Culture exhibits no growth. [facility] Determination of erythrocyte mean corpuscular volume (MCV)Ordered By: Gabriella Simpson on 12-02-2023 MCV (RBC) [Entitic vol] 89.1 fL 81-99 [facility] Hematocrit Auto (Bld) [Volum e fraction]Ordered By: Gabriella Simpson on 12-02-2023 Hematocrit (Bld) [Volume fraction] 37.5 % 37-47 [facility] Ketones Test strip Ql (U)Ord ered By: Gabriella Simpson on 12-02-2023 Ketones Ql (U) Negative Negative [facility] MCHC Auto (RBC) [Mass/Vol]Or dered By: Gabriella Simpson on 12-02-2023 MCHC (RBC) [Mass/Vol] 33.3 g/dL 32-36 [facility] Mucus LM Ql (Urine sed)Order ed By: Gabriella Simpson on 12-02-2023 Mucus Ql (Urine sed) 0 SEEN /hpf [facility] Nitrite Test strip Ql (U)Ord ered By: Gabriella Simpson on 12-02-2023 Nitrite Ql (U) Negative Negative [facility] No Panel InformationOrdered By: Roman Mckeon on 12-02-2023 No growth in 5 days. [facility] No growth in 5 days. [facility] No Panel InformationOrdered By: Gabriella Simpson on 12-02-2023 29.7 pg 27.0-32.0 [facility] 15.5 % 11.6-14.6 [facility] 50.4 fl 35.1-43.9 [facility] 0.800 % 0.0-0.9 [facility] 0 % 0-5 [facility] 51 mL/min >60 [facility] 61 mL/min >60 [facility] 41.54 ml/min [facility] 14.2 RATIO 10-20 [facility] 26 U/L 26-192 [facility] 25.0 mmol/L 21.0-32.0 [facility] Platelets bldOrdered By: Ene Simpson on 12-02-2023 Platelets (Bld) [#/Vol] 281 10*3/uL 150-450 [facility] Protein Test strip Ql (U)Ord ered By: Gabriella Simpson on 12-02-2023 Protein Ql (U) 15 mg/dl Negative [facility] Serum or plasma calcium stefania urement (mass/volume)Ordered By: Gabriella Simpson on 12-02-2023 Calcium [Mass/Vol] 8.8 mg/dL 8.5-10.[address] [facility] Serum or plasma creatinine m easurement (mass/volume)Ordered By: Gabriella Simpson on 12-02-2023 Creatinine [Mass/Vol] 1.13 mg/dL 0.55-1.02 [facility] Serum or plasma urea nitroge n measurement (mass/volume)Ordered By: Gabriella Simpson on 12-02-2023 Urea nitrogen [Mass/Vol] 16 mg/dL 7-18 [facility] Squamous epithelial cells de tection in urine sediment by light microscopyOrdered By: Gabriella Simpson on 12-02-2023 Epithelial cells.squamous LM Ql (Urine sed) 0 SEEN /hpf 5-10 [facility] Thin prep Papanicolaou smear with manual screeningOrdered By: Gabriella Simpson on 12-02-2023 Thin prep Papanicolaou smear with manual screening 8 5-15 [facility] Urine blood detectionOrdered By: Gabriella Simpson on 12-02-2023 RBC Ql (U) Negative Negative [facility] RBC Ql (U) 0 SEEN /hpf 0-5 [facility] Urine clarityOrdered By: Ene Simpson on 12-02-2023 Clarity (U) Clear Clear [facility] Urine color determinationOrd ered By: Gabriella Simpson on 12-02-2023 Color (U) Yellow Yellow [facility] Urine glucose detectionOrder ed By: Gabriella Simpson on 12-02-2023 Glucose Ql (U) Normal mg/dl Normal [facility] Urine leukocyte esterase det ection by dipstickOrdered By: Gabriella Simpson on 12-02-2023 Leukocyte esterase Test strip Ql (U) 25 /ul Negative [facility] Urine pHOrdered By: Gabriella peoples on 12-02-2023 pH (U) 6.5 [pH] 5.0 - 8.0 [facility] Urine sediment bacteria coun t by microscopy (number/high power field)Ordered By: Gabriella Simpson on 12-02-2023 Bacteria LM.HPF (Urine sed) [#/Area] 0 /[HPF] None Seen [facility] Urine specific gravity measu rementOrdered By: Gabriella Simpson on 12-02-2023 Specific gravity (U) [Rel density] 1.015 1.002-1.03 0 [facility] Urobilinogen Auto test strip Ql (U)Ordered By: Gabriella Simpson on 12-02-2023 Urobilinogen Ql (U) Normal mg/dl Normal [facility] Absolute lymphocyte countOrd ered By: Ramírez Onofre on 11-27-2023 Lymphocytes Auto (Unsp spec) [#/Vol] 1.75 10*3/uL 0.83-4.51 [facility] Basophil percentageOrdered B y: Ramírez Onofre on 11-27-2023 Basophil percentage 106 mg/dL 74-106 [facility] Basophil percentage 140 mmol/L 136-145 [facility] Basophil percentage 3.7 mmol/L 3.5-5.1 [facility] Basophil percentage 108 mmol/L 98-107 [facility] Basophils (Bld) [#/Vol] 10.4 10*3/uL 4.4-11.0 [facility] Basophils (Bld) [#/Vol] 7.5 10*3/uL 2.0-7.7 [facility] Basophils/100 WBC (Bld) 0.4 % 0-1 [facility] Basophils/100 WBC (Bld) 71.7 % 47-70 [facility] Chloride [Moles/Vol] 108 mmol/L 98-107 [facility] Eosinophils/100 WBC (Bld) 0.4 % 0-5 [facility] Glucose [Mass/Vol] 106 mg/dL 74-[address] [facility] Comment on above: Fasting Glucose resu lt from 100 to 125 mg/dL suggests IMPAIRED HOMEOSTASIS per A.D.A. criteria. Neutrophils (Bld) [#/Vol] 7.5 10*3/uL 2.0-7.7 [facility] Neutrophils/100 WBC (Bld) 71.7 % 47-70 [facility] Potassium [Moles/Vol] 3.7 mmol/L 3.5-5.1 [facility] Sodium [Moles/Vol] 140 mmol/L 136-[address] [facility] WBC (Bld) [#/Vol] 10.4 10*3/uL 4.4-11.0 [facility] Blood erythrocytes count (nu mber/volume)Ordered By: Ramírez Onofre on 11-27-2023 RBC (Bld) [#/Vol] 3.89 10*6/uL 4.2-5.4 [facility] Blood hemoglobin measurement (mass/volume)Ordered By: Ramírez Onofre on 11-27-2023 Hemoglobin (Bld) [Mass/Vol] 11.6 g/dL 12.0-15.0 [facility] Blood lymphocytes/100 leukoc ytesOrdered By: Ramírez Onofre on 11-27-2023 Lymphocytes/100 WBC (Bld) 16.8 % 19-41 [facility] Blood monocytes/100 leukocyt esOrdered By: Ramírez Onofre on 11-27-2023 Monocytes/100 WBC (Bld) 9.9 % 0-10 [facility] Blood platelet mean volumeOr dered By: Ramírez Onofre on 11-27-2023 Platelet mean volume (Bld) [Entitic vol] 9.0 fL 6.2-12.0 [facility] Determination of erythrocyte mean corpuscular volume (MCV)Ordered By: Ramírez Onofre on 11-27-2023 MCV (RBC) [Entitic vol] 87.9 fL 81-99 [facility] Hematocrit Auto (Bld) [Volum e fraction]Ordered By: Ramírez Onofre on 11-27-2023 Hematocrit (Bld) [Volume fraction] 34.2 % 37-47 [facility] INR in Blood by Coagulation assayOrdered By: Ramírez Onofre on 11-27-2023 INR Coag (Bld) [Relative time] 1.0 {INR} [facility] Laboratory - Chemistry and C hemistry - challengeOrdered By: Ramírez Onofre on 11-27-2023 CO2 [Moles/Vol] 30.0 mmol/L 21.0-32.0 [facility] Urea nitrogen/Creatinine [Mass ratio] 12.8 mg/mg 10-20 [facility] Laboratory - CoagulationOrde red By: Ramírez Onofre on 11-27-2023 aPTT Coag (Bld) [Time] 27.8 s 24.1-36.2 [facility] PT Coag (PPP) [Time] 13.0 s 11.7-14.9 [facility] Laboratory - Hematology and Cell countsOrdered By: Ramírez Onofre on 11-27-2023 Erythrocyte distribution width (RBC) [Entitic vol] 48.7 fL 35.1-43.9 [facility] Erythrocyte distribution width (RBC) [Ratio] 15.3 % 11.6-14.6 [facility] Immature granulocytes/100 WBC (Bld) 0.800 % 0.0-0.9 [facility] Comment on above: IG% - Immature Granu locytes (promyelocytes, myelocytes and metamyelocytes) > 1% indicates that a LEFT SHIFT is Present. MCH (RBC) [Entitic mass] 29.8 pg 27.0-32.0 [facility] Nucleated RBC/100 WBC (Bld) [Ratio] 0 % 0-5 [facility] MCHC Auto (RBC) [Mass/Vol]Or dered By: Ramírez Onofre on 11-27-2023 MCHC (RBC) [Mass/Vol] 33.9 g/dL 32-36 [facility] Comment on above: Delta: 31.9 on [id number] No Panel InformationOrdered By: Ramírez Onofre on 11-27-2023 Estimated Creatinine Clearance Calc 41.86 ml/min [facility] Estimated GFR (MDRD) Amer 64 mL/min >60 [facility] Comment on above: GFR Calc Estimated GFR (MDRD) Non-Af Amer 53 mL/min >60 [facility] Comment on above: Non- GFR Calc Troponin I High Sensitivity 10 pg/mL 3.0-54.0 [facility] Comment on above: Please Note: New Kim t Units and Gender Specific Reference Ranges. For more information see Policy Stat Procedure [place] High Sensitivity Troponin (TNIH) and attachments. 29.8 pg 27.0-32.0 [facility] 15.3 % 11.6-14.6 [facility] 48.7 fl 35.1-43.9 [facility] 0.800 % 0.0-0.9 [facility] 0 % 0-5 [facility] 13.0 SECONDS 11.7-14.9 [facility] 27.8 Seconds 24.1-36.2 [facility] 53 mL/min >60 [facility] 64 mL/min >60 [facility] 41.86 ml/min [facility] 12.8 RATIO 10-20 [facility] 10 pg/mL 3.0-54.0 [facility] 30.0 mmol/L 21.0-32.0 [facility] Platelets bldOrdered By: Romeo Onofre on 11-27-2023 Platelets (Bld) [#/Vol] 232 10*3/uL 150-450 [facility] Serum or plasma calcium stefania urement (mass/volume)Ordered By: Ramírez Onofre on 11-27-2023 Calcium [Mass/Vol] 8.7 mg/dL 8.5-10.[address] [facility] Serum or plasma creatinine m easurement (mass/volume)Ordered By: Ramírez Onofre on 11-27-2023 Creatinine [Mass/Vol] 1.09 mg/dL 0.55-1.02 [facility] Comment on above: The validity of the calculated GFR & GFRAA in patients over 70 years has not been determined. Clinical correlation is essential. Serum or plasma urea nitroge n measurement (mass/volume)Ordered By: Ramírez Onofre on 11-27-2023 Urea nitrogen [Mass/Vol] 14 mg/dL 7-18 [facility] Thin prep Papanicolaou smear with manual screeningOrdered By: Ramírez Onofre on 11-27-2023 Thin prep Papanicolaou smear with manual screening 2 5-15 [facility] Absolute lymphocyte countOrd ered By: Justice Cid on 11-26-2023 Lymphocytes Auto (Unsp spec) [#/Vol] 1.87 10*3/uL 0.83-4.51 [facility] Basophil percentageOrdered B y: Justice Cid on 11-26-2023 Basophil percentage 120 mg/dL 74-106 [facility] Basophil percentage 142 mmol/L 136-145 [facility] Basophil percentage 4.2 mmol/L 3.5-5.1 [facility] Basophil percentage 108 mmol/L 98-107 [facility] Basophils (Bld) [#/Vol] 9.7 10*3/uL 4.4-11.0 [facility] Basophils (Bld) [#/Vol] 6.8 10*3/uL 2.0-7.7 [facility] Basophils/100 WBC (Bld) 0.5 % 0-1 [facility] Basophils/100 WBC (Bld) 69.4 % 47-70 [facility] Basophils/100 WBC (Bld) 0.4 % 0-5 [facility] Chloride [Moles/Vol] 108 mmol/L 98-107 [facility] Eosinophils/100 WBC (Bld) 0.4 % 0-5 [facility] Glucose [Mass/Vol] 120 mg/dL 74-[address] [facility] Comment on above: Fasting Glucose resu lt from 100 to 125 mg/dL suggests IMPAIRED HOMEOSTASIS per A.D.A. criteria. Neutrophils (Bld) [#/Vol] 6.8 10*3/uL 2.0-7.7 [facility] Neutrophils/100 WBC (Bld) 69.4 % 47-70 [facility] Potassium [Moles/Vol] 4.2 mmol/L 3.5-5.1 [facility] Sodium [Moles/Vol] 142 mmol/L 136-[address] [facility] WBC (Bld) [#/Vol] 9.7 10*3/uL 4.4-11.[address] [facility] Blood erythrocytes count (nu mber/volume)Ordered By: Justice Cid on 11-26-2023 RBC (Bld) [#/Vol] 3.84 10*6/uL 4.2-5.4 [facility] Blood hemoglobin measurement (mass/volume)Ordered By: Justice Cid on 11-26-2023 Hemoglobin (Bld) [Mass/Vol] 10.9 g/dL 12.0-15.0 [facility] Blood lymphocytes/100 leukoc ytesOrdered By: Justice Cid on 11-26-2023 Lymphocytes/100 WBC (Bld) 19.2 % 19-41 [facility] Blood monocytes/100 leukocyt esOrdered By: Justice Cid on 11-26-2023 Monocytes/100 WBC (Bld) 9.7 % 0-10 [facility] Blood platelet mean volumeOr dered By: Justice Cid on 11-26-2023 Platelet mean volume (Bld) [Entitic vol] 8.9 fL 6.2-12.0 [facility] Determination of erythrocyte mean corpuscular volume (MCV)Ordered By: Justice Cid on 11-26-2023 MCV (RBC) [Entitic vol] 89.1 fL 81-99 [facility] Hematocrit Auto (Bld) [Volum e fraction]Ordered By: Justice Cid on 11-26-2023 Hematocrit (Bld) [Volume fraction] 34.2 % 37-47 [facility] Laboratory - Chemistry and C hemistry - challengeOrdered By: Justice Cid on 11-26-2023 CO2 [Moles/Vol] 31.0 mmol/L 21.0-32.0 [facility] Urea nitrogen/Creatinine [Mass ratio] 13.8 mg/mg 10-20 [facility] Laboratory - Hematology and Cell countsOrdered By: Justice Cid on 11-26-2023 Erythrocyte distribution width (RBC) [Entitic vol] 49.2 fL 35.1-43.9 [facility] Erythrocyte distribution width (RBC) [Ratio] 15.4 % 11.6-14.6 [facility] Immature granulocytes/100 WBC (Bld) 0.800 % 0.0-0.9 [facility] Comment on above: IG% - Immature Granu locytes (promyelocytes, myelocytes and metamyelocytes) > 1% indicates that a LEFT SHIFT is Present. MCH (RBC) [Entitic mass] 28.4 pg 27.0-32.0 [facility] Nucleated RBC/100 WBC (Bld) [Ratio] 0 % 0-5 [facility] MCHC Auto (RBC) [Mass/Vol]Or dered By: Justice Cid on 11-26-2023 MCHC (RBC) [Mass/Vol] 31.9 g/dL 32-36 [facility] No Panel InformationOrdered By: Justice Cid on 11-26-2023 Estimated Creatinine Clearance Calc 39.99 ml/min [facility] Estimated GFR (MDRD) Amer 60 mL/min >60 [facility] Comment on above: GFR Calc Estimated GFR (MDRD) Non-Af Amer 49 mL/min >60 [facility] Comment on above: Non- GFR Calc Troponin I High Sensitivity 10 pg/mL 3.0-54.0 [facility] Comment on above: Please Note: New Kim t Units and Gender Specific Reference Ranges. For more information see Policy Stat Procedure [place] High Sensitivity Troponin (TNIH) and attachments. 28.4 pg 27.0-32.0 [facility] 15.4 % 11.6-14.6 [facility] 49.2 fl 35.1-43.9 [facility] 0.800 % 0.0-0.9 [facility] 0 % 0-5 [facility] 49 mL/min >60 [facility] 60 mL/min >60 [facility] 39.99 ml/min [facility] 13.8 RATIO 10-20 [facility] 10 pg/mL 3.0-54.0 [facility] 31.0 mmol/L 21.0-32.0 [facility] Platelets bldOrdered By: Yeny Cid on 11-26-2023 Platelets (Bld) [#/Vol] 265 10*3/uL 150-450 [facility] Serum or plasma calcium stefania urement (mass/volume)Ordered By: Justice Cid on 11-26-2023 Calcium [Mass/Vol] 8.2 mg/dL 8.5-10.[address] [facility] Serum or plasma creatinine m easurement (mass/volume)Ordered By: Justice Cid on 11-26-2023 Creatinine [Mass/Vol] 1.16 mg/dL 0.55-1.02 [facility] Comment on above: The validity of the calculated GFR & GFRAA in patients over 70 years has not been determined. Clinical correlation is essential. Serum or plasma urea nitroge n measurement (mass/volume)Ordered By: Justice Cid on 11-26-2023 Urea nitrogen [Mass/Vol] 16 mg/dL 7-18 [facility] Thin prep Papanicolaou smear with manual screeningOrdered By: Justice Cid on 11-26-2023 Thin prep Papanicolaou smear with manual screening 3 5-15 [facility] Absolute lymphocyte countOrd ered By: Sachin Murillo on 11-21-2023 Lymphocytes Auto (Unsp spec) [#/Vol] 0.67 10*3/uL 0.83-4.51 [facility] Basophil percentageOrdered B y: Sachin Murillo on 11-21-2023 Basophils (Bld) [#/Vol] 4.7 10*3/uL 4.4-11.0 [facility] Basophils (Bld) [#/Vol] 2.9 10*3/uL 2.0-7.7 [facility] Basophils/100 WBC (Bld) 0.6 % 0-1 [facility] Basophils/100 WBC (Bld) 62.0 % 47-70 [facility] Basophils/100 WBC (Bld) 0.9 % 0-5 [facility] Eosinophils/100 WBC (Bld) 0.9 % 0-5 [facility] Neutrophils (Bld) [#/Vol] 2.9 10*3/uL 2.0-7.7 [facility] Neutrophils/100 WBC (Bld) 62.0 % 47-70 [facility] WBC (Bld) [#/Vol] 4.7 10*3/uL 4.4-11.[address] [facility] Blood erythrocytes count (nu mber/volume)Ordered By: Sachin Murillo on 11-21-2023 RBC (Bld) [#/Vol] 3.54 10*6/uL 4.2-5.4 [facility] Blood hemoglobin measurement (mass/volume)Ordered By: Sachin Murillo on 11-21-2023 Hemoglobin (Bld) [Mass/Vol] 10.2 g/dL 12.0-15.0 [facility] Blood lymphocytes/100 leukoc ytesOrdered By: Sachin Murillo on 11-21-2023 Lymphocytes/100 WBC (Bld) 14.3 % 19-41 [facility] Blood monocytes/100 leukocyt esOrdered By: Sachin Murillo on 11-21-2023 Monocytes/100 WBC (Bld) 18.8 % 0-10 [facility] Blood platelet mean volumeOr dered By: Sachin Murillo on 11-21-2023 Platelet mean volume (Bld) [Entitic vol] 9.7 fL 6.2-12.0 [facility] Determination of erythrocyte mean corpuscular volume (MCV)Ordered By: Sachin Murillo on 11-21-2023 MCV (RBC) [Entitic vol] 87.0 fL 81-99 [facility] Hematocrit Auto (Bld) [Volum e fraction]Ordered By: Sachin Murillo on 11-21-2023 Hematocrit (Bld) [Volume fraction] 30.8 % 37-47 [facility] Laboratory - Hematology and Cell countsOrdered By: Sachin Murillo on 11-21-2023 Erythrocyte distribution width (RBC) [Entitic vol] 48.1 fL 35.1-43.9 [facility] Erythrocyte distribution width (RBC) [Ratio] 15.0 % 11.6-14.6 [facility] Immature granulocytes/100 WBC (Bld) 3.400 % 0.0-0.9 [facility] Comment on above: IG% - Immature Granu locytes (promyelocytes, myelocytes and metamyelocytes) > 1% indicates that a LEFT SHIFT is Present. MCH (RBC) [Entitic mass] 28.8 pg 27.0-32.0 [facility] Nucleated RBC/100 WBC (Bld) [Ratio] 0 % 0-5 [facility] MCHC Auto (RBC) [Mass/Vol]Or dered By: Sachin Murillo on 11-21-2023 MCHC (RBC) [Mass/Vol] 33.1 g/dL 32-36 [facility] No Panel InformationOrdered By: Sachin Murillo on 11-21-2023 28.8 pg 27.0-32.0 [facility] 15.0 % 11.6-14.6 [facility] 48.1 fl 35.1-43.9 [facility] 3.400 % 0.0-0.9 [facility] 0 % 0-5 [facility] Platelets bldOrdered By: Ciro Murillo on 11-21-2023 Platelets (Bld) [#/Vol] 141 10*3/uL 150-450 [facility] Basophil percentageOrdered B y: Sachin Murillo on 11-20-2023 Basophil percentage 94 mg/dL 74-106 [facility] Basophil percentage 137 mmol/L 136-145 [facility] Basophil percentage 3.4 mmol/L 3.5-5.1 [facility] Basophil percentage 106 mmol/L 98-107 [facility] Chloride [Moles/Vol] 106 mmol/L 98-107 [facility] Glucose [Mass/Vol] 94 mg/dL 74-[address] [facility] Potassium [Moles/Vol] 3.4 mmol/L 3.5-5.1 [facility] Sodium [Moles/Vol] 137 mmol/L 136-[address] [facility] Blood manual differential co mment interpretation (narrative result)Ordered By: Sachin Murillo on 11-20-2023 Manual differential comment Jimy (Bld) [Interp] COMMENT [facility] Comment on above: LYMPHOPENIA. Laboratory - Chemistry and C hemistry - challengeOrdered By: Sachin Murillo on 11-20-2023 CO2 [Moles/Vol] 21.0 mmol/L 21.0-32.0 [facility] Urea nitrogen/Creatinine [Mass ratio] 11.5 mg/mg 10-20 [facility] No Panel InformationOrdered By: Sachin Murillo on 11-20-2023 Estimated Creatinine Clearance Calc 53.47 ml/min [facility] Estimated GFR (MDRD) Amer 83 mL/min >60 [facility] Comment on above: GFR Calc Estimated GFR (MDRD) Non-Af Amer 69 mL/min >60 [facility] Comment on above: Non- GFR Calc 69 mL/min >60 [facility] 83 mL/min >60 [facility] 53.47 ml/min [facility] 11.5 RATIO 10-20 [facility] 21.0 mmol/L 21.0-32.0 [facility] No Panel InformationOrdered By: Roman Hewitt on 11-20-2023 Troponin I High Sensitivity 26 pg/mL 3.0-54.0 [facility] Comment on above: Please Note: New Kim t Units and Gender Specific Reference Ranges. For more information see Policy Stat Procedure [place] High Sensitivity Troponin (TNIH) and attachments. 26 pg/mL 3.0-54.0 [facility] Serum or plasma calcium stefania urement (mass/volume)Ordered By: Sachin Murillo on 11-20-2023 Calcium [Mass/Vol] 8.0 mg/dL 8.5-10.[address] [facility] Serum or plasma creatinine m easurement (mass/volume)Ordered By: Sachin Murillo on 11-20-2023 Creatinine [Mass/Vol] 0.87 mg/dL 0.55-1.02 [facility] Comment on above: The validity of the calculated GFR & GFRAA in patients over 70 years has not been determined. Clinical correlation is essential. Serum or plasma urea nitroge n measurement (mass/volume)Ordered By: Sachin Murillo on 11-20-2023 Urea nitrogen [Mass/Vol] 10 mg/dL 7-18 [facility] Thin prep Papanicolaou smear with manual screeningOrdered By: Sachin Murillo on 11-20-2023 Thin prep Papanicolaou smear with manual screening 10 5-15 [facility] Basophil percentageOrdered B y: Sommer White on 11-19-2023 Basophil percentage 5.5 g/dL 6.4-8.2 [facility] Basophil percentage 0.50 mg/dL 0.20-1.00 [facility] Basophil percentage 116 mg/dL <199 [facility] Bilirubin [Mass/Vol] 0.50 mg/dL 0.20-1.00 [facility] Comment on above: For patients on eltr ombopag therapy, use of Dimension [place] TBIL is not recommended. Cholesterol [Mass/Vol] 116 mg/dL <200 [facility] Comment on above: <200 mg/dL Desirable 200-240 mg/dL Borderline >240 mg/dL High Risk Protein [Mass/Vol] 5.5 g/dL 6.4-8.[address] [facility] Triglyceride [Mass/Vol] 116 mg/dL <199 [facility] Comment on above: The drugs N-Acetylcy steine and Metamizole may falsely depress this assay.Serum Triglycerides Reference Interval Normal <150 mg/dL Borderline high 150 - 199 mg/dL High 200 - 499 mg/dL Very High > or = 500 mg/dL Laboratory - Chemistry and C hemistry - challengeOrdered By: Sommer Resendiz on 11-19-2023 ALP [Catalytic activity/Vol] 79 U/L 45-117 [facility] ALT [Catalytic activity/Vol] 16 U/L [facility] Free T4 [Mass/Vol] 1.66 ng/dL 0.76-1.[address] [facility] Globulin (S) [Mass/Vol] 2.9 g/dL 2.2-4.2 [facility] No Panel InformationOrdered By: Sommer Resendiz on 11-19-2023 Thyroid Stimulating Hormone (TSH) 1.42 uIU/mL 0.358-3.74 [facility] 2.9 g/dL 2.2-4.2 [facility] 79 U/L 45-117 [facility] 16 U/L [facility] 1.42 uIU/mL 0.358-3.74 [facility] 1.66 ng/dL 0.76-1.46 [facility] Serum or plasma albumin stefania urement (mass/volume)Ordered By: Sommer Resendiz on 11-19-2023 Albumin [Mass/Vol] 2.6 g/dL 3.2-5.[address] [facility] Serum or plasma albumin/glob ulin mass ratioOrdered By: Sommer Resendiz on 11-19-2023 Albumin/Globulin [Mass ratio] 0.9 {ratio} 0.9-2.4 [facility] Serum or plasma cholesterol in HDL measurement (mass/volume)Ordered By: Sommer Resendiz on 11-19-2023 Cholesterol in HDL [Mass/Vol] 30 mg/dL >40 [facility] Comment on above: The drugs N-Acetylcy steine and Metamizole may falsely depress this assay. Reference Range HDL <40 mg/dL Low HDL Cholesterol HDL >or= 60 mg/dL High HDL Cholesterol Serum or plasma cholesterol in VLDL measurement (mass/volume)Ordered By: Sommer Resendiz on 11-19-2023 Cholesterol in VLDL [Mass/Vol] 23 mg/dL 5-40 [facility] Serum or plasma low density lipoprotein (LDL) cholesterol measurement (mass/volume)Ordered By: [facility] Martín on 11-19-2023 Cholesterol in LDL [Mass/Vol] 63 mg/dL 0-130 [facility] Thin prep Papanicolaou smear with manual screeningOrdered By: Sommer Resendiz on 11-19-2023 Thin prep Papanicolaou smear with manual screening 17 U/L 15-37 [facility] Absolute lymphocyte countOrd ered By: Michele Kebede on 11-18-2023 Lymphocytes Auto (Unsp spec) [#/Vol] 1.07 10*3/uL 0.83-4.51 [facility] Basophil percentageOrdered B y: Michele Kebede on 11-18-2023 Basophil percentage 0-5 SEEN /hpf 0-5 [facility] Basophils/100 WBC (Bld) 0.4 % 0-1 [facility] Bilirubin [Mass/Vol] 0.40 mg/dL 0.20-1.00 [facility] Comment on above: For patients on eltr ombopag therapy, use of Dimension [place] TBIL is not recommended. Chloride [Moles/Vol] 110 mmol/L 98-107 [facility] Eosinophils/100 WBC (Bld) 0.2 % 0-5 [facility] Glucose [Mass/Vol] 116 mg/dL 74-[address] [facility] Comment on above: Fasting Glucose resu lt from 100 to 125 mg/dL suggests IMPAIRED HOMEOSTASIS per A.D.A. criteria. Neutrophils (Bld) [#/Vol] 3.7 10*3/uL 2.0-7.7 [facility] Neutrophils/100 WBC (Bld) 66.4 % 47-70 [facility] Potassium [Moles/Vol] 3.5 mmol/L 3.5-5.1 [facility] Protein [Mass/Vol] 6.5 g/dL 6.4-8.[address] [facility] Sodium [Moles/Vol] 140 mmol/L 136-[address] [facility] WBC (Bld) [#/Vol] 5.5 10*3/uL 4.4-11.[address] [facility] Bilirubin Test strip Ql (U)O rdered By: Michele Kebede on 11-18-2023 Bilirubin Ql (U) Negative Negative [facility] Blood erythrocytes count (nu mber/volume)Ordered By: Michele Kebede on 11-18-2023 RBC (Bld) [#/Vol] 4.56 10*6/uL 4.2-5.4 [facility] Blood hemoglobin measurement (mass/volume)Ordered By: Michele Kebede on 11-18-2023 Hemoglobin (Bld) [Mass/Vol] 12.9 g/dL 12.0-15.0 [facility] Blood lymphocytes/100 leukoc ytesOrdered By: Michele Kebede on 11-18-2023 Lymphocytes/100 WBC (Bld) 19.4 % 19-41 [facility] Blood monocytes/100 leukocyt esOrdered By: Michele Kebede on 11-18-2023 Monocytes/100 WBC (Bld) 12.9 % 0-10 [facility] Blood platelet mean volumeOr dered By: Michele Kebede on 11-18-2023 Platelet mean volume (Bld) [Entitic vol] 10.3 fL 6.2-12.0 [facility] Determination of erythrocyte mean corpuscular volume (MCV)Ordered By: Michele Kebede on 11-18-2023 MCV (RBC) [Entitic vol] 85.7 fL 81-99 [facility] Hematocrit Auto (Bld) [Volum e fraction]Ordered By: Michele Kebede on 11-18-2023 Hematocrit (Bld) [Volume fraction] 39.1 % 37-47 [facility] Ketones Test strip Ql (U)Ord ered By: Michele Kebede on 11-18-2023 Ketones Ql (U) 5 mg/dl Negative [facility] Laboratory - Chemistry and C hemistry - challengeOrdered By: Michele Kebede on 11-18-2023 ALP [Catalytic activity/Vol] 93 U/L 45-117 [facility] ALT [Catalytic activity/Vol] 18 U/L 13-56 [facility] CO2 [Moles/Vol] 22.0 mmol/L 21.0-32.0 [facility] Globulin (S) [Mass/Vol] 3.4 g/dL 2.2-4.2 [facility] Urea nitrogen/Creatinine [Mass ratio] 12.2 mg/mg 10-20 [facility] Laboratory - Chemistry and C hemistry - challengeOrdered By: Sommer Resendiz on 11-18-2023 Magnesium [Mass/Vol] 1.8 mg/dL 1.6-2.6 [facility] Laboratory - Hematology and Cell countsOrdered By: Michele Kebede on 11-18-2023 Erythrocyte distribution width (RBC) [Entitic vol] 46.5 fL 35.1-43.9 [facility] Erythrocyte distribution width (RBC) [Ratio] 14.8 % 11.6-14.6 [facility] Immature granulocytes/100 WBC (Bld) 0.700 % 0.0-0.9 [facility] Comment on above: IG% - Immature Granu locytes (promyelocytes, myelocytes and metamyelocytes) > 1% indicates that a LEFT SHIFT is Present. MCH (RBC) [Entitic mass] 28.3 pg 27.0-32.0 [facility] Nucleated RBC/100 WBC (Bld) [Ratio] 0 % 0-5 [facility] MCHC Auto (RBC) [Mass/Vol]Or dered By: Michele Kebede on 11-18-2023 MCHC (RBC) [Mass/Vol] 33.0 g/dL 32-36 [facility] Mucus LM Ql (Urine sed)Order ed By: Michele Kebede on 11-18-2023 Mucus Ql (Urine sed) 0 SEEN /hpf [facility] Nitrite Test strip Ql (U)Ord ered By: Michele Kebede on 11-18-2023 Nitrite Ql (U) Negative Negative [facility] No Panel InformationOrdered By: Michele Kebede on 11-18-2023 Estimated Creatinine Clearance Calc 48.26 ml/min [facility] Estimated GFR (MDRD) Amer 72 mL/min >60 [facility] Comment on above: GFR Calc Estimated GFR (MDRD) Non-Af Amer 59 mL/min >60 [facility] Comment on above: Non- GFR Calc Troponin I High Sensitivity 60 pg/mL 3.0-54.0 [facility] Comment on above: Please Note: New Kim t Units and Gender Specific Reference Ranges. For more information see Policy Stat Procedure [place] High Sensitivity Troponin (TNIH) and attachments. No Panel InformationOrdered By: Sommer Resendiz on 11-18-2023 1.8 mg/dL 1.6-2.6 [facility] Platelets bldOrdered By: Randee Kebede on 11-18-2023 Platelets (Bld) [#/Vol] 123 10*3/uL 150-450 [facility] Protein Test strip Ql (U)Ord ered By: Michele Kebede on 11-18-2023 Protein Ql (U) Negative Negative [facility] Serum or plasma albumin stefania urement (mass/volume)Ordered By: Michele Kebede on 11-18-2023 Albumin [Mass/Vol] 3.1 g/dL 3.2-5.[address] [facility] Serum or plasma albumin/glob ulin mass ratioOrdered By: Michele Kebede on 11-18-2023 Albumin/Globulin [Mass ratio] 0.9 {ratio} 0.9-2.4 [facility] Serum or plasma calcium stefania urement (mass/volume)Ordered By: Michele Kebede on 11-18-2023 Calcium [Mass/Vol] 8.0 mg/dL 8.5-10.[address] [facility] Serum or plasma creatinine m easurement (mass/volume)Ordered By: Michele Kebede on 11-18-2023 Creatinine [Mass/Vol] 0.99 mg/dL 0.55-1.02 [facility] Comment on above: The validity of the calculated GFR & GFRAA in patients over 70 years has not been determined. Clinical correlation is essential. Serum or plasma urea nitroge n measurement (mass/volume)Ordered By: Michele Kebede on 11-18-2023 Urea nitrogen [Mass/Vol] 12 mg/dL 7-18 [facility] Squamous epithelial cells de tection in urine sediment by light microscopyOrdered By: Michele Kebede on 11-18-2023 Epithelial cells.squamous LM Ql (Urine sed) 5-10 SEEN /hpf 5-10 [facility] Stool gastrointestinal hemog lobin detection by immunologic methodOrdered By: Michele Kebede on 11-18-2023 Lower GI hemoglobin IA Ql (Stl) [facility] Lower GI hemoglobin IA Ql (Stl) [facility] Thin prep Papanicolaou smear with manual screeningOrdered By: Michele Kebede on 11-18-2023 Thin prep Papanicolaou smear with manual screening 17 U/L 15-37 [facility] Thin prep Papanicolaou smear with manual screening 8 5-15 [facility] Urine blood detectionOrdered By: Michele Kebede on 11-18-2023 RBC Ql (U) 25 /ul Negative [facility] RBC Ql (U) 0-5 SEEN /hpf 0-5 [facility] Urine clarityOrdered By: Randee Kebede on 11-18-2023 Clarity (U) Clear Clear [facility] Urine color determinationOrd ered By: Michele Kebede on 11-18-2023 Color (U) Yellow Yellow [facility] Urine glucose detectionOrder ed By: Michele Kebede on 11-18-2023 Glucose Ql (U) Normal mg/dl Normal [facility] Urine leukocyte esterase det ection by dipstickOrdered By: Michele Kebede on 11-18-2023 Leukocyte esterase Test strip Ql (U) 25 /ul Negative [facility] Urine pHOrdered By: Michele gutierrez on 11-18-2023 pH (U) 6.0 [pH] 5.0 - 8.0 [facility] Urine sediment bacteria coun t by microscopy (number/high power field)Ordered By: Michele Kebede on 11-18-2023 Bacteria LM.HPF (Urine sed) [#/Area] 1 /[HPF] None Seen [facility] Urine specific gravity measu rementOrdered By: Michele Kebede on 11-18-2023 Specific gravity (U) [Rel density] 1.015 1.002-1.03 0 [facility] Urobilinogen Auto test strip Ql (U)Ordered By: Michele Kebede on 11-18-2023 Urobilinogen Ql (U) Normal mg/dl Normal [facility] Absolute lymphocyte countOrd ered By: Sommer Resendiz on 11-16-2023 Lymphocytes Auto (Unsp spec) [#/Vol] 0.96 10*3/uL 0.83-4.51 [facility] Basophil percentageOrdered B y: Sommer Resendiz on 11-16-2023 Basophil percentage 73 mg/dL 74-106 [facility] Basophil percentage 5.9 g/dL 6.4-8.2 [facility] Basophil percentage 0.40 mg/dL 0.20-1.00 [facility] Basophil percentage 135 mmol/L 136-145 [facility] Basophil percentage 3.6 mmol/L 3.5-5.1 [facility] Basophil percentage 107 mmol/L 98-107 [facility] Basophils (Bld) [#/Vol] 3.8 10*3/uL 4.4-11.0 [facility] Basophils (Bld) [#/Vol] 2.2 10*3/uL 2.0-7.7 [facility] Basophils/100 WBC (Bld) 0.3 % 0-1 [facility] Basophils/100 WBC (Bld) 57.7 % 47-70 [facility] Bilirubin [Mass/Vol] 0.40 mg/dL 0.20-1.00 [facility] Comment on above: For patients on eltr ombopag therapy, use of Dimension [place] TBIL is not recommended. Chloride [Moles/Vol] 107 mmol/L 98-107 [facility] Eosinophils/100 WBC (Bld) 0.3 % 0-5 [facility] Glucose [Mass/Vol] 73 mg/dL 74-[address] [facility] Neutrophils (Bld) [#/Vol] 2.2 10*3/uL 2.0-7.7 [facility] Neutrophils/100 WBC (Bld) 57.7 % 47-70 [facility] Potassium [Moles/Vol] 3.6 mmol/L 3.5-5.1 [facility] Protein [Mass/Vol] 5.9 g/dL 6.4-8.[address] [facility] Sodium [Moles/Vol] 135 mmol/L 136-[address] [facility] WBC (Bld) [#/Vol] 3.8 10*3/uL 4.4-11.[address] [facility] Blood erythrocytes count (nu mber/volume)Ordered By: Sommer Resendiz on 11-16-2023 RBC (Bld) [#/Vol] 4.20 10*6/uL 4.2-5.4 [facility] Blood hemoglobin measurement (mass/volume)Ordered By: Sommer Resendiz on 11-16-2023 Hemoglobin (Bld) [Mass/Vol] 12.2 g/dL 12.0-15.0 [facility] Blood lymphocytes/100 leukoc ytesOrdered By: Sommer Resendiz on 11-16-2023 Lymphocytes/100 WBC (Bld) 25.5 % 19-41 [facility] Blood monocytes/100 leukocyt esOrdered By: Sommer Resendiz on 11-16-2023 Monocytes/100 WBC (Bld) 15.7 % 0-10 [facility] Blood platelet mean volumeOr dered By: Sommer Resendiz on 11-16-2023 Platelet mean volume (Bld) [Entitic vol] 10.1 fL 6.2-12.0 [facility] Determination of erythrocyte mean corpuscular volume (MCV)Ordered By: Sommer Resendiz on 11-16-2023 MCV (RBC) [Entitic vol] 88.3 fL 81-99 [facility] Hematocrit Auto (Bld) [Volum e fraction]Ordered By: Sommer Resendiz on 11-16-2023 Hematocrit (Bld) [Volume fraction] 37.1 % 37-47 [facility] Laboratory - Chemistry and C hemistry - challengeOrdered By: Sommer Resendiz on 11-16-2023 ALP [Catalytic activity/Vol] 90 U/L 45-117 [facility] ALT [Catalytic activity/Vol] 23 U/L 13-56 [facility] CO2 [Moles/Vol] 21.0 mmol/L 21.0-32.0 [facility] Globulin (S) [Mass/Vol] 3.0 g/dL 2.2-4.2 [facility] Urea nitrogen/Creatinine [Mass ratio] 26.4 mg/mg 10-20 [facility] Laboratory - Hematology and Cell countsOrdered By: Sommer Resendiz on 11-16-2023 Erythrocyte distribution width (RBC) [Entitic vol] 48.2 fL 35.1-43.9 [facility] Erythrocyte distribution width (RBC) [Ratio] 14.8 % 11.6-14.6 [facility] Immature granulocytes/100 WBC (Bld) 0.500 % 0.0-0.9 [facility] Comment on above: IG% - Immature Granu locytes (promyelocytes, myelocytes and metamyelocytes) > 1% indicates that a LEFT SHIFT is Present. MCH (RBC) [Entitic mass] 29.0 pg 27.0-32.0 [facility] Nucleated RBC/100 WBC (Bld) [Ratio] 0 % 0-5 [facility] MCHC Auto (RBC) [Mass/Vol]Or dered By: Sommer Resendiz on 11-16-2023 MCHC (RBC) [Mass/Vol] 32.9 g/dL 32-36 [facility] No Panel InformationOrdered By: Sommer Resendiz on 11-16-2023 Estimated Creatinine Clearance Calc 28.68 ml/min [facility] Estimated GFR (MDRD) Amer 41 mL/min >60 [facility] Comment on above: GFR Calc Estimated GFR (MDRD) Non-Af Amer 34 mL/min >60 [facility] Comment on above: Non- GFR Calc 29.0 pg 27.0-32.0 [facility] 14.8 % 11.6-14.6 [facility] 48.2 fl 35.1-43.9 [facility] 0.500 % 0.0-0.9 [facility] 0 % 0-5 [facility] 34 mL/min >60 [facility] 41 mL/min >60 [facility] 28.68 ml/min [facility] 26.4 RATIO 10-20 [facility] 3.0 g/dL 2.2-4.2 [facility] 90 U/L 45-117 [facility] 23 U/L 13-56 [facility] 21.0 mmol/L 21.0-32.0 [facility] Platelets bldOrdered By: Aut susan Resendiz on 11-16-2023 Platelets (Bld) [#/Vol] 136 10*3/uL 150-450 [facility] Serum or plasma albumin stefania urement (mass/volume)Ordered By: Sommer Resendiz on 11-16-2023 Albumin [Mass/Vol] 2.9 g/dL 3.2-5.[address] [facility] Serum or plasma albumin/glob ulin mass ratioOrdered By: Sommer Resendiz on 11-16-2023 Albumin/Globulin [Mass ratio] 1.0 {ratio} 0.9-2.4 [facility] Serum or plasma calcium stefania urement (mass/volume)Ordered By: Sommer Resendiz on 11-16-2023 Calcium [Mass/Vol] 7.4 mg/dL 8.5-10.[address] [facility] Serum or plasma creatinine m easurement (mass/volume)Ordered By: Sommer Resendiz on 11-16-2023 Creatinine [Mass/Vol] 1.59 mg/dL 0.55-1.02 [facility] Comment on above: The validity of the calculated GFR & GFRAA in patients over 70 years has not been determined. Clinical correlation is essential. Serum or plasma urea nitroge n measurement (mass/volume)Ordered By: Sommer Resendiz on 11-16-2023 Urea nitrogen [Mass/Vol] 42 mg/dL 7-18 [facility] Thin prep Papanicolaou smear with manual screeningOrdered By: Sommer Resendiz on 11-16-2023 Thin prep Papanicolaou smear with manual screening 28 U/L 15-37 [facility] Thin prep Papanicolaou smear with manual screening 7 5-15 [facility] Absolute lymphocyte countOrd ered By: Michele Kebede on 11-15-2023 Lymphocytes Auto (Unsp spec) [#/Vol] 0.70 10*3/uL 0.83-4.51 [facility] Basophil percentageOrdered B y: Michele Kebede on 11-15-2023 Basophil percentage 5-10 SEEN /hpf 0-5 [facility] Basophils/100 WBC (Bld) 0.2 % 0-1 [facility] Bilirubin [Mass/Vol] 0.30 mg/dL 0.20-1.00 [facility] Comment on above: For patients on eltr ombopag therapy, use of Dimension [place] TBIL is not recommended. Chloride [Moles/Vol] 97 mmol/L 98-107 [facility] Eosinophils/100 WBC (Bld) 0.0 % 0-5 [facility] Glucose [Mass/Vol] 80 mg/dL 74-[address] [facility] Neutrophils (Bld) [#/Vol] 3.4 10*3/uL 2.0-7.7 [facility] Neutrophils/100 WBC (Bld) 70.4 % 47-70 [facility] Potassium [Moles/Vol] 3.9 mmol/L 3.5-5.1 [facility] Protein [Mass/Vol] 6.9 g/dL 6.4-8.[address] [facility] Sodium [Moles/Vol] 130 mmol/L 136-[address] [facility] WBC (Bld) [#/Vol] 4.9 10*3/uL 4.4-11.[address] [facility] Bilirubin Test strip Ql (U)O rdered By: Michele Kebede on 11-15-2023 Bilirubin Ql (U) Negative Negative [facility] Blood erythrocytes count (nu mber/volume)Ordered By: Michele Kebede on 11-15-2023 RBC (Bld) [#/Vol] 4.74 10*6/uL 4.2-5.4 [facility] Blood hemoglobin measurement (mass/volume)Ordered By: Michele Kebede on 11-15-2023 Hemoglobin (Bld) [Mass/Vol] 13.7 g/dL 12.0-15.0 [facility] Blood lymphocytes/100 leukoc ytesOrdered By: Michele Kebede on 11-15-2023 Lymphocytes/100 WBC (Bld) 14.3 % 19-41 [facility] Blood monocytes/100 leukocyt esOrdered By: Michele Kebede on 11-15-2023 Monocytes/100 WBC (Bld) 14.5 % 0-10 [facility] Blood platelet mean volumeOr dered By: Michele Kebede on 11-15-2023 Platelet mean volume (Bld) [Entitic vol] 10.1 fL 6.2-12.0 [facility] Calcium oxalate crystals det ection in urine sediment by light microscopyOrdered By: Michele Kebede on 11-15-2023 Calcium oxalate crystals LM Ql (Urine sed) RARE /hpf [facility] Determination of erythrocyte mean corpuscular volume (MCV)Ordered By: Michele Kebede on 11-15-2023 MCV (RBC) [Entitic vol] 86.3 fL 81-99 [facility] Hematocrit Auto (Bld) [Volum e fraction]Ordered By: Michele Kebede on 11-15-2023 Hematocrit (Bld) [Volume fraction] 40.9 % 37-47 [facility] Ketones Test strip Ql (U)Ord ered By: Michele Kebede on 11-15-2023 Ketones Ql (U) 5 mg/dl Negative [facility] Laboratory - Chemistry and C hemistry - challengeOrdered By: Michele Kebede on 11-15-2023 ALP [Catalytic activity/Vol] 104 U/L 45-117 [facility] ALT [Catalytic activity/Vol] 27 U/L 13-56 [facility] CO2 [Moles/Vol] 21.0 mmol/L 21.0-32.0 [facility] Globulin (S) [Mass/Vol] 3.6 g/dL 2.2-4.2 [facility] Lipase [Catalytic activity/Vol] 60 U/L 13- [facility] Comment on above: Please note:LIPASE r evised reference range effective 23. New Lipase methodology. Expected to produce lower values than the previous assay method. NEW Reference Range: 13 - 75 U/L Urea nitrogen/Creatinine [Mass ratio] 25.5 mg/mg 10-20 [facility] Laboratory - Hematology and Cell countsOrdered By: Michele Kebede on 11-15-2023 Erythrocyte distribution width (RBC) [Entitic vol] 46.6 fL 35.1-43.9 [facility] Erythrocyte distribution width (RBC) [Ratio] 14.6 % 11.6-14.6 [facility] Immature granulocytes/100 WBC (Bld) 0.600 % 0.0-0.9 [facility] Comment on above: IG% - Immature Granu locytes (promyelocytes, myelocytes and metamyelocytes) > 1% indicates that a LEFT SHIFT is Present. MCH (RBC) [Entitic mass] 28.9 pg 27.0-32.0 [facility] Nucleated RBC/100 WBC (Bld) [Ratio] 0 % 0-5 [facility] Laboratory - Microbiology an d Antimicrobial susceptibilityOrdered By: Michele Kebede on 11-15-2023 SARS-CoV-2 (COVID-19) RNA JAYDON+probe Ql (Unsp spec) Influenzae A [facility] MCHC Auto (RBC) [Mass/Vol]Or dered By: Michele Kebede on 11-15-2023 MCHC (RBC) [Mass/Vol] 33.5 g/dL 32-36 [facility] Mucus LM Ql (Urine sed)Order ed By: Michele Kebede on 11-15-2023 Mucus Ql (Urine sed) 0 SEEN /hpf [facility] Nitrite Test strip Ql (U)Ord ered By: Michele Kebede on 11-15-2023 Nitrite Ql (U) Negative Negative [facility] No Panel InformationOrdered By: Michele Kebede on 11-15-2023 Influenzae A [facility] Influenzae A [facility] Estimated Creatinine Clearance Calc 19.03 ml/min [facility] Estimated GFR (MDRD) Amer 24 mL/min >60 [facility] Comment on above: GFR Calc Estimated GFR (MDRD) Non-Af Amer 20 mL/min >60 [facility] Comment on above: Non- GFR Calc 60 U/L 13-75 [facility] Platelets bldOrdered By: Randee Kebede on 11-15-2023 Platelets (Bld) [#/Vol] 164 10*3/uL 150-450 [facility] Protein Test strip Ql (U)Ord ered By: Michele Kebede on 11-15-2023 Protein Ql (U) 15 mg/dl Negative [facility] Serum or plasma albumin stefania urement (mass/volume)Ordered By: Michele Kebede on 11-15-2023 Albumin [Mass/Vol] 3.3 g/dL 3.2-5.[address] [facility] Serum or plasma albumin/glob ulin mass ratioOrdered By: Michele Kebede on 11-15-2023 Albumin/Globulin [Mass ratio] 0.9 {ratio} 0.9-2.4 [facility] Serum or plasma calcium stefania urement (mass/volume)Ordered By: Michele Kebede on 11-15-2023 Calcium [Mass/Vol] 8.1 mg/dL 8.5-10.[address] [facility] Serum or plasma creatinine m easurement (mass/volume)Ordered By: Michele Kebede on 11-15-2023 Creatinine [Mass/Vol] 2.51 mg/dL 0.55-1.02 [facility] Comment on above: The validity of the calculated GFR & GFRAA in patients over 70 years has not been determined. Clinical correlation is essential. Serum or plasma urea nitroge n measurement (mass/volume)Ordered By: Michele Kebede on 11-15-2023 Urea nitrogen [Mass/Vol] 64 mg/dL 7-18 [facility] Serum procalcitonin measurem entOrdered By: Sommer Resendiz on 11-15-2023 Procalcitonin [Mass/Vol] 0.24 ng/mL 0.00-0.09 [facility] Comment on above: A procalcitonin [...] Ql (Urine sed) 5-10 SEEN /hpf 5-10 [facility] Thin prep Papanicolaou smear with manual screeningOrdered By: Michele Kebede on 11-15-2023 Thin prep Papanicolaou smear with manual screening 34 U/L 15-37 [facility] Thin prep Papanicolaou smear with manual screening 12 5-15 [facility] Urine blood detectionOrdered By: Michele Kebede on 11-15-2023 RBC Ql (U) 25 /ul Negative [facility] RBC Ql (U) 0-5 SEEN /hpf 0-5 [facility] Urine clarityOrdered By: Randee Kebede on 11-15-2023 Clarity (U) Sl. Cloudy Clear [facility] Urine color determinationOrd ered By: Michele Kebede on 11-15-2023 Color (U) Yellow Yellow [facility] Urine glucose detectionOrder ed By: Michele Kebede on 11-15-2023 Glucose Ql (U) Normal mg/dl Normal [facility] Urine leukocyte esterase det ection by dipstickOrdered By: Michele Kebede on 11-15-2023 Leukocyte esterase Test strip Ql (U) 100 /ul Negative [facility] Urine pHOrdered By: Michele gutierrez on 11-15-2023 pH (U) 5.0 [pH] 5.0 - 8.0 [facility] Urine sediment bacteria coun t by microscopy (number/high power field)Ordered By: Michele Kebede on 11-15-2023 Bacteria LM.HPF (Urine sed) [#/Area] RARE /hpf None Seen [facility] Urine specific gravity measu rementOrdered By: Michele Kebede on 11-15-2023 Specific gravity (U) [Rel density] 1.015 1.002-1.03 0 [facility] Urobilinogen Auto test strip Ql (U)Ordered By: Michele Kebede on 11-15-2023 Urobilinogen Ql (U) Normal mg/dl Normal [facility] IR ARTERIOGRAM EXTREMITY HUNG ATERAL LOWERon 11-13-2023 IR ARTERIOGRAM EXTREMITY BILATERAL LOWER ORIGINAL Images acquired, not reported on this accession number. Normal [facility] ([place]) .Auto Diffon 10-26-2023 Basophil, Absolute 0.1 10 3/mcL Normal 0.0-0.3 [facility] ([place]) Comment on above: Performed By: #### A KAILA, ADIFF, GFR, BMP, CBC #### [address] [address] Basophils/100 WBC (Bld) 0.8 % Normal 0.0-2.5 A [facility] ([place]) Comment on above: Performed By: #### A KAILA, ADIFF, GFR, BMP, CBC #### [address] [address] Eosinophil, Absolute 0.1 10 3/mcL Normal 0.0-0.7 [facility] ([place]) Comment on above: Performed By: #### A KAILA, ADIFF, GFR, BMP, CBC #### [address] [address] Eosinophils/100 WBC (Bld) 1.5 % Normal 0.0-6.0 [facility] ([place]) Comment on above: Performed By: #### A KAILA, ADIFF, GFR, BMP, CBC #### [address] [address] Lymphocyte, Absolute 1.3 10 3/mcL Normal 0.9-4.3 [facility] ([place]) Comment on above: Performed By: #### A KAILA, ADIFF, GFR, BMP, CBC #### [address] [address] Lymphocytes/100 WBC (Bld) 16.6 % Low 20.0-40.0 [facility] ([place]) Comment on above: Performed By: #### A KAILA, ADIFF, GFR, BMP, CBC #### [address] [address] Monocyte, Absolute 0.6 10 3/mcL Normal 0.1-1.4 [facility] ([place]) Comment on above: Performed By: #### A KAILA, ADIFF, GFR, BMP, CBC #### [address] [address] Monocytes/100 WBC (Bld) 7.8 % Normal 2.0-13.0 [facility] ([place]) Comment on above: Performed By: #### A KAILA, ADIFF, GFR, BMP, CBC #### [address] [address] Neutrophils/100 WBC (Bld) 73.3 % Normal 50.0-75.0 [facility] ([place]) Comment on above: Performed By: #### A KAILA, ADIFF, GFR, BMP, CBC #### [address] [address] .GFRon 10-26-2023 GFR 53 ml/min/1.73sqm Normal [facility] ([place]) Comment on above: Result Comment: GFR Population [...] A KAILA, ADIFF, GFR, BMP, CBC #### [address] [address] GFR Non- 44 ml/min/1.73sqm Normal [facility] ([place]) Comment on above: Result Comment: GFR Population [...] A KAILA, ADIFF, GFR, BMP, CBC #### [address] [address] .NEUABSon 10-26-2023 Neutrophil, Absolute 5.7 10 3/mcL Normal 2.3-8.1 [facility] ([place]) Comment on above: Performed By: #### A KAILA, ADIFF, GFR, BMP, CBC #### [address] [address] BMPon 10-26-2023 BUN/Creatinine Ratio 25.6 ratio High 10.0-22.0 [facility] ([place]) Comment on above: Order Comment: hemol yzed talk to noa Performed By: #### A KAILA, ADIFF, GFR, BMP, CBC #### [address] [address] Calcium [Mass/Vol] 7.7 mg/dL Low 8.7-10.4 [facility] ([place]) Comment on above: Order Comment: hemol yzed talk to noa Performed By: #### A KAILA, ADIFF, GFR, BMP, CBC #### [address] [address] Chloride [Moles/Vol] 114 mmol/L High 98-110 [facility] ([place]) Comment on above: Order Comment: hemol yzed talk to noa Performed By: #### A KAILA, ADIFF, GFR, BMP, CBC #### [address] [address] CO2 [Moles/Vol] 29 mmol/L Normal 22-32 [facility] ([place]) Comment on above: Order Comment: hemol yzed talk to noa Performed By: #### A KAILA, ADIFF, GFR, BMP, CBC #### [address] [address] Creatinine [Mass/Vol] 1.21 mg/dL High 0.50-1.20 [facility] ([place]) Comment on above: Order Comment: hemol yzed talk to noa Performed By: #### A KAILA, ADIFF, GFR, BMP, CBC #### [address] [address] Electrolyte Balance -1.0 mEq/L Low 4.0-15.0 [facility] ([place]) Comment on above: Order Comment: hemol yzed talk to noa Performed By: #### A KAILA, ADIFF, GFR, BMP, CBC #### [address] [address] Potassium [Moles/Vol] 3.9 mmol/L Normal 3.5-5.0 [facility] ([place]) Comment on above: Order Comment: hemol yzed talk to noa Performed By: #### A KAILA, ADIFF, GFR, BMP, CBC #### [address] [address] Sodium [Moles/Vol] 142 mmol/L Normal 136-145 [facility] ([place]) Comment on above: Order Comment: hemol yzed talk to noa Performed By: #### A KAILA, ADIFF, GFR, BMP, CBC #### [place] [id number] Glucose [Mass/Vol] 78 mg/dL Low 82-115 [facility] ([place]) Comment on above: Order Comment: hemol yzed talk to noa Performed By: #### A KAILA, ADIFF, GFR, BMP, CBC #### [place] [address] Urea nitrogen [Mass/Vol] 31.0 mg/dL High 8.0-22.0 [facility] ([place]) Comment on above: Order Comment: hemol yzed talk to noa Performed By: #### A KAILA, ADIFF, GFR, BMP, CBC #### [address] [address] CBCon 10-26-2023 Erythrocyte distribution width (RBC) [Ratio] 14.9 % Normal 11.5-15.5 [facility] ([place]) Comment on above: Performed By: #### A KAILA, ADIFF, GFR, BMP, CBC #### [place] [address] Hematocrit (Bld) [Volume fraction] 40.0 % Normal 34.0-46.0 [facility] ([place]) Comment on above: Performed By: #### A KAILA, ADIFF, GFR, BMP, CBC #### [address] [address] Hgb 13.7 G/dL Normal 12.0-16.0 [facility] ([place]) Comment on above: Performed By: #### A KAILA, ADIFF, GFR, BMP, CBC #### [place] [address] MCH (RBC) [Entitic mass] 29.9 pg Normal 27.0-33.0 [facility] ([place]) Comment on above: Performed By: #### A KAILA, ADIFF, GFR, BMP, CBC #### [place] [address] MCHC 34.2 G/dL Normal 32.0-36.0 [facility] ([place]) Comment on above: Performed By: #### A KAILA, ADIFF, GFR, BMP, CBC #### [place] [address] MCV (RBC) [Entitic vol] 87.4 fL Normal 80.0-99.0 A [facility] ([place]) Comment on above: Performed By: #### A KAILA, ADIFF, GFR, BMP, CBC #### [place] [address] Platelet 188 10 3/mcL Normal 150-450 [facility] ([place]) Comment on above: Performed By: #### A KAILA, ADIFF, GFR, BMP, CBC #### [place] [address] Platelet mean volume (Bld) [Entitic vol] 7.5 fL Normal 6.6-10.5 [facility] ([place]) Comment on above: Performed By: #### A KAILA, ADIFF, GFR, BMP, CBC #### [place] [address] RBC 4.57 10 6/mcL Normal 4.10-5.30 [facility] ([place]) Comment on above: Performed By: #### A KAILA, ADIFF, GFR, BMP, CBC #### [place] [address] WBC 7.8 10 3/mcL Normal 4.5-10.8 [facility] ([place]) Comment on above: Performed By: #### A KAILA, ADIFF, GFR, BMP, CBC #### [place] [address] * Body fluid crystals type b y light microscopyOrdered By: Kai Jacobson on 10-22-2023 Crystals LM Nom (Body fld) See PATH REV [facility] Comment on above: CRYSTAL RESULT IS PRELIMINARY. SEE PATH REVIEW FOR FINAL REPORT. Review by pathologistOrdered By: Kai Jacobson on 10-22-2023 Pathologist review Jimy (Unsp spec) [Interp] Reviewed [facility] Comment on above: Previous reported re sult: Will follow Edited by: PELON on 10/23/23:1346Negative for Mann Thomas M.D. 10/23/23 AMENDED REPORT 10/23/23 1346 PATH REV previously reported as: Will follow Specimen source identificati on of body fluidOrdered By: Kai Jacobson on 10-22-2023 Specimen source Nom (Body fld) SYNOVIAL [facility] Absolute lymphocyte countOrd ered By: ED PROVIDER on 10-05-2023 Lymphocytes Auto (Unsp spec) [#/Vol] 1.62 10*3/uL 0.83-4.51 [facility] Basophil percentageOrdered B y: ED PROVIDER on 10-05-2023 Basophil percentage 108 mg/dL 74-106 [facility] Basophil percentage 142 mmol/L 136-145 [facility] Basophil percentage 4.3 mmol/L 3.5-5.1 [facility] Basophil percentage 110 mmol/L 98-107 [facility] Basophils (Bld) [#/Vol] 7.2 10*3/uL 4.4-11.0 [facility] Basophils (Bld) [#/Vol] 4.8 10*3/uL 2.0-7.7 [facility] Basophils/100 WBC (Bld) 0.7 % 0-1 [facility] Basophils/100 WBC (Bld) 66.3 % 47-70 [facility] Basophils/100 WBC (Bld) 2.9 % 0-5 [facility] Chloride [Moles/Vol] 110 mmol/L 98-107 [facility] Eosinophils/100 WBC (Bld) 2.9 % 0-5 [facility] Glucose [Mass/Vol] 108 mg/dL 74-[address] [facility] Comment on above: Fasting Glucose resu lt from 100 to 125 mg/dL suggests IMPAIRED HOMEOSTASIS per A.D.A. criteria. Neutrophils (Bld) [#/Vol] 4.8 10*3/uL 2.0-7.7 [facility] Neutrophils/100 WBC (Bld) 66.3 % 47-70 [facility] Potassium [Moles/Vol] 4.3 mmol/L 3.5-5.1 [facility] Sodium [Moles/Vol] 142 mmol/L 136-[address] [facility] WBC (Bld) [#/Vol] 7.2 10*3/uL 4.4-11.[address] [facility] Blood erythrocytes count (nu mber/volume)Ordered By: ED PROVIDER on 10-05-2023 RBC (Bld) [#/Vol] 5.19 10*6/uL 4.2-5.4 [facility] Blood hemoglobin measurement (mass/volume)Ordered By: ED PROVIDER on 10-05-2023 Hemoglobin (Bld) [Mass/Vol] 14.9 g/dL 12.0-15.0 [facility] Blood lymphocytes/100 leukoc ytesOrdered By: ED PROVIDER on 10-05-2023 Lymphocytes/100 WBC (Bld) 22.4 % 19-41 [facility] Blood monocytes/100 leukocyt esOrdered By: ED PROVIDER on 10-05-2023 Monocytes/100 WBC (Bld) 7.3 % 0-10 [facility] Blood platelet mean volumeOr dered By: ED PROVIDER on 10-05-2023 Platelet mean volume (Bld) [Entitic vol] 9.6 fL 6.2-12.0 [facility] Determination of erythrocyte mean corpuscular volume (MCV)Ordered By: ED PROVIDER on 10-05-2023 MCV (RBC) [Entitic vol] 88.8 fL 81-99 [facility] Hematocrit Auto (Bld) [Volum e fraction]Ordered By: ED PROVIDER on 10-05-2023 Hematocrit (Bld) [Volume fraction] 46.1 % 37-47 [facility] Laboratory - Chemistry and C hemistry - challengeOrdered By: Yasmani Haynes on 10-05-2023 Magnesium [Mass/Vol] 2.0 mg/dL 1.6-2.6 [facility] Laboratory - Chemistry and C hemistry - challengeOrdered By: ED PROVIDER on 10-05-2023 CO2 [Moles/Vol] 27.0 mmol/L 21.0-32.0 [facility] Urea nitrogen/Creatinine [Mass ratio] 20.7 mg/mg 10-20 [facility] Laboratory - Hematology and Cell countsOrdered By: ED PROVIDER on 10-05-2023 Erythrocyte distribution width (RBC) [Entitic vol] 45.3 fL 35.1-43.9 [facility] Erythrocyte distribution width (RBC) [Ratio] 14.0 % 11.6-14.6 [facility] Immature granulocytes/100 WBC (Bld) 0.400 % 0.0-0.9 [facility] Comment on above: IG% - Immature Granu locytes (promyelocytes, myelocytes and metamyelocytes) > 1% indicates that a LEFT SHIFT is Present. MCH (RBC) [Entitic mass] 28.7 pg 27.0-32.0 [facility] Nucleated RBC/100 WBC (Bld) [Ratio] 0 % 0-5 [facility] MCHC Auto (RBC) [Mass/Vol]Or dered By: ED PROVIDER on 10-05-2023 MCHC (RBC) [Mass/Vol] 32.3 g/dL 32-36 [facility] No Panel InformationOrdered By: ED PROVIDER on 10-05-2023 Troponin I High Sensitivity 8 pg/mL 3.0-54.0 [facility] Comment on above: Please Note: New Kim t Units and Gender Specific Reference Ranges. For more information see Policy Stat Procedure [place] High Sensitivity Troponin (TNIH) and attachments. 8 pg/mL 3.0-54.0 [facility] Estimated Creatinine Clearance Calc 43.04 ml/min [facility] Estimated GFR (MDRD) Amer 63 mL/min >60 [facility] Comment on above: GFR Calc Estimated GFR (MDRD) Non-Af Amer 52 mL/min >60 [facility] Comment on above: Non- GFR Calc 28.7 pg 27.0-32.0 [facility] 14.0 % 11.6-14.6 [facility] 45.3 fl 35.1-43.9 [facility] 0.400 % 0.0-0.9 [facility] 0 % 0-5 [facility] 52 mL/min >60 [facility] 63 mL/min >60 [facility] 43.04 ml/min [facility] 20.7 RATIO 10-20 [facility] 27.0 mmol/L 21.0-32.0 [facility] No Panel InformationOrdered By: Yasmani Haynes on 10-05-2023 2.0 mg/dL 1.6-2.6 [facility] Platelets bldOrdered By: ED PROVIDER on 10-05-2023 Platelets (Bld) [#/Vol] 206 10*3/uL 150-450 [facility] Serum or plasma calcium stefania urement (mass/volume)Ordered By: ED PROVIDER on 10-05-2023 Calcium [Mass/Vol] 9.5 mg/dL 8.5-10.[address] [facility] Serum or plasma creatinine m easurement (mass/volume)Ordered By: ED PROVIDER on 10-05-2023 Creatinine [Mass/Vol] 1.11 mg/dL 0.55-1.02 [facility] Comment on above: The validity of the calculated GFR & GFRAA in patients over 70 years has not been determined. Clinical correlation is essential. Serum or plasma urea nitroge n measurement (mass/volume)Ordered By: ED PROVIDER on 10-05-2023 Urea nitrogen [Mass/Vol] 23 mg/dL 7-18 [facility] Thin prep Papanicolaou smear with manual screeningOrdered By: ED PROVIDER on 10-05-2023 Thin prep Papanicolaou smear with manual screening 5 5-15 [facility] Absolute lymphocyte countOrd ered By: Daron Benton on 08-21-2023 Lymphocytes Auto (Unsp spec) [#/Vol] 1.45 10*3/uL 0.83-4.51 [facility] Basophil percentageOrdered B y: Daron Benton on 08-21-2023 Basophil percentage 86 mg/dL 74-106 [facility] Basophil percentage 7.3 g/dL 6.4-8.2 [facility] Basophil percentage 0.30 mg/dL 0.20-1.00 [facility] Basophil percentage 139 mmol/L 136-145 [facility] Basophil percentage 4.7 mmol/L 3.5-5.1 [facility] Basophil percentage 108 mmol/L 98-107 [facility] Basophils (Bld) [#/Vol] 7.3 10*3/uL 4.4-11.0 [facility] Basophils (Bld) [#/Vol] 5.0 10*3/uL 2.0-7.7 [facility] Basophils/100 WBC (Bld) 0.7 % 0-1 [facility] Basophils/100 WBC (Bld) 68.4 % 47-70 [facility] Basophils/100 WBC (Bld) 3.1 % 0-5 [facility] Bilirubin [Mass/Vol] 0.30 mg/dL 0.20-1.00 [facility] Comment on above: For patients on eltr ombopag therapy, use of Dimension [place] TBIL is not recommended. Chloride [Moles/Vol] 108 mmol/L 98-107 [facility] Eosinophils/100 WBC (Bld) 3.1 % 0-5 [facility] Glucose [Mass/Vol] 86 mg/dL 74-[address] [facility] Neutrophils (Bld) [#/Vol] 5.0 10*3/uL 2.0-7.7 [facility] Neutrophils/100 WBC (Bld) 68.4 % 47-70 [facility] Potassium [Moles/Vol] 4.7 mmol/L 3.5-5.1 [facility] Protein [Mass/Vol] 7.3 g/dL 6.4-8.[address] [facility] Sodium [Moles/Vol] 139 mmol/L 136-[address] [facility] WBC (Bld) [#/Vol] 7.3 10*3/uL 4.4-11.[address] [facility] Blood erythrocytes count (nu mber/volume)Ordered By: Daron Benton on 08-21-2023 RBC (Bld) [#/Vol] 4.99 10*6/uL 4.2-5.4 [facility] Blood hemoglobin measurement (mass/volume)Ordered By: Daron Benton on 08-21-2023 Hemoglobin (Bld) [Mass/Vol] 14.5 g/dL 12.0-15.0 [facility] Blood lymphocytes/100 leukoc ytesOrdered By: Daron Benton on 08-21-2023 Lymphocytes/100 WBC (Bld) 19.8 % 19-41 [facility] Blood monocytes/100 leukocyt esOrdered By: Daron Benton on 08-21-2023 Monocytes/100 WBC (Bld) 7.5 % 0-10 [facility] Blood platelet mean volumeOr dered By: Daron Benton on 08-21-2023 Platelet mean volume (Bld) [Entitic vol] 10.7 fL 6.2-12.0 [facility] Determination of erythrocyte mean corpuscular volume (MCV)Ordered By: Daron Benton on 08-21-2023 MCV (RBC) [Entitic vol] 91.6 fL 81-99 [facility] Hematocrit Auto (Bld) [Volum e fraction]Ordered By: Daron Benton on 08-21-2023 Hematocrit (Bld) [Volume fraction] 45.7 % 37-47 [facility] Laboratory - Chemistry and C hemistry - challengeOrdered By: Daron Benton on 08-21-2023 ALP [Catalytic activity/Vol] 122 U/L 45-117 [facility] ALT [Catalytic activity/Vol] 26 U/L 13-56 [facility] CO2 [Moles/Vol] 28.0 mmol/L 21.0-32.0 [facility] Globulin (S) [Mass/Vol] 3.6 g/dL 2.2-4.2 [facility] Urea nitrogen/Creatinine [Mass ratio] 22.2 mg/mg 10-20 [facility] Laboratory - Hematology and Cell countsOrdered By: Daron Benton on 08-21-2023 Erythrocyte distribution width (RBC) [Entitic vol] 46.4 fL 35.1-43.9 [facility] Erythrocyte distribution width (RBC) [Ratio] 13.8 % 11.6-14.6 [facility] Immature granulocytes/100 WBC (Bld) 0.500 % 0.0-0.9 [facility] Comment on above: IG% - Immature Granu locytes (promyelocytes, myelocytes and metamyelocytes) > 1% indicates that a LEFT SHIFT is Present. MCH (RBC) [Entitic mass] 29.1 pg 27.0-32.0 [facility] Nucleated RBC/100 WBC (Bld) [Ratio] 0 % 0-5 [facility] MCHC Auto (RBC) [Mass/Vol]Or dered By: Daron Benton on 08-21-2023 MCHC (RBC) [Mass/Vol] 31.7 g/dL 32-36 [facility] No Panel InformationOrdered By: Daron Benton on 08-21-2023 Estimated GFR (MDRD) Amer 65 mL/min >60 [facility] Comment on above: GFR Calc Estimated GFR (MDRD) Non-Af Amer 53 mL/min >60 [facility] Comment on above: Non- GFR Calc Thyroid Stimulating Hormone (TSH) 2.00 uIU/mL 0.358-3.74 [facility] 29.1 pg 27.0-32.0 [facility] 13.8 % 11.6-14.6 [facility] 46.4 fl 35.1-43.9 [facility] 0.500 % 0.0-0.9 [facility] 0 % 0-5 [facility] 53 mL/min >60 [facility] 65 mL/min >60 [facility] 22.2 RATIO 10-20 [facility] 3.6 g/dL 2.2-4.2 [facility] 122 U/L 45-117 [facility] 26 U/L 13-56 [facility] 28.0 mmol/L 21.0-32.0 [facility] 2.00 uIU/mL 0.358-3.74 [facility] Platelets bldOrdered By: Nila Benton on 08-21-2023 Platelets (Bld) [#/Vol] 184 10*3/uL 150-450 [facility] Serum or plasma albumin stefania urement (mass/volume)Ordered By: Daron Benton on 08-21-2023 Albumin [Mass/Vol] 3.7 g/dL 3.2-5.[address] [facility] Serum or plasma albumin/glob ulin mass ratioOrdered By: Daron Benton on 08-21-2023 Albumin/Globulin [Mass ratio] 1.0 {ratio} 0.9-2.4 [facility] Serum or plasma calcium stefania urement (mass/volume)Ordered By: Daron Benotn on 08-21-2023 Calcium [Mass/Vol] 9.2 mg/dL 8.5-10.[address] [facility] Serum or plasma creatinine m easurement (mass/volume)Ordered By: Daron Benton on 08-21-2023 Creatinine [Mass/Vol] 1.08 mg/dL 0.55-1.02 [facility] Comment on above: The validity of the calculated GFR & GFRAA in patients over 70 years has not been determined. Clinical correlation is essential. Serum or plasma urea nitroge n measurement (mass/volume)Ordered By: Daron Benton on 08-21-2023 Urea nitrogen [Mass/Vol] 24 mg/dL 7-18 [facility] Thin prep Papanicolaou smear with manual screeningOrdered By: Daron Benton on 08-21-2023 Thin prep Papanicolaou smear with manual screening 18 U/L 15-37 [facility] Thin prep Papanicolaou smear with manual screening 3 5-15 [facility] Basophil percentageOrdered B y: Dr. Benton on 04-26-2023 Bilirubin [Mass/Vol] 0.30 mg/dL 0.20-1.00 [facility] Comment on above: For patients on eltr ombopag therapy, use of Dimension [place] TBIL is not recommended. Chloride [Moles/Vol] 109 mmol/L 98-107 [facility] Glucose [Mass/Vol] 95 mg/dL 74-[address] [facility] Potassium [Moles/Vol] 4.6 mmol/L 3.5-5.1 [facility] Protein [Mass/Vol] 7.1 g/dL 6.4-8.[address] [facility] Sodium [Moles/Vol] 138 mmol/L 136-[address] [facility] INR in Blood by Coagulation assayOrdered By: Dr. Benton on 04-26-2023 INR Coag (Bld) [Relative time] 0.9 {INR} [facility] Laboratory - Chemistry and C hemistry - challengeOrdered By: Dr. Benton on 04-26-2023 ALP [Catalytic activity/Vol] 109 U/L 45-117 [facility] ALT [Catalytic activity/Vol] 26 U/L 13-56 [facility] CO2 [Moles/Vol] 27.0 mmol/L 21.0-32.0 [facility] Globulin (S) [Mass/Vol] 3.6 g/dL 2.2-4.2 [facility] Urea nitrogen/Creatinine [Mass ratio] 26.9 mg/mg 10-20 [facility] Laboratory - CoagulationOrde red By: Dr. Benton on 04-26-2023 PT Coag (PPP) [Time] 12.5 s 11.7-14.9 [facility] No Panel InformationOrdered By: Dr. Benton on 04-26-2023 Estimated GFR (MDRD) Amer 73 mL/min >60 [facility] Comment on above: GFR Calc Estimated GFR (MDRD) Non-Af Amer 61 mL/min >60 [facility] Comment on above: Non- GFR Calc Serum or plasma albumin stefania urement (mass/volume)Ordered By: Dr. Benton on 04-26-2023 Albumin [Mass/Vol] 3.5 g/dL 3.2-5.[address] [facility] Serum or plasma albumin/glob ulin mass ratioOrdered By: Dr. Benton on 04-26-2023 Albumin/Globulin [Mass ratio] 1.0 {ratio} 0.9-2.4 [facility] Serum or plasma calcium stefania urement (mass/volume)Ordered By: Dr. Benton on 04-26-2023 Calcium [Mass/Vol] 9.5 mg/dL 8.5-10.[address] [facility] Serum or plasma creatinine m easurement (mass/volume)Ordered By: Dr. Benton on 04-26-2023 Creatinine [Mass/Vol] 0.97 mg/dL 0.55-1.02 [facility] Comment on above: The validity of the calculated GFR & GFRAA in patients over 70 years has not been determined. Clinical correlation is essential. Serum or plasma transthyreti n measurement (mass/volume)Ordered By: Dr. Benton on 04-26-2023 Prealbumin [Mass/Vol] 19.6 mg/dL 20.0-40.0 [facility] Serum or plasma urea nitroge n measurement (mass/volume)Ordered By: Dr. Benton on 04-26-2023 Urea nitrogen [Mass/Vol] 26 mg/dL 7-18 [facility] Thin prep Papanicolaou smear with manual screeningOrdered By: Dr. Benton on 04-26-2023 Thin prep Papanicolaou smear with manual screening 14 U/L 15-37 [facility] Thin prep Papanicolaou smear with manual screening 2 5-15 [facility] Absolute lymphocyte countOrd ered By: Dr. Garcia on 04-08-2023 Lymphocytes Auto (Unsp spec) [#/Vol] 1.45 10*3/uL 0.83-4.51 [facility] Basophil percentageOrdered B y: Dr. Garcia on 04-08-2023 Basophils/100 WBC (Bld) 0.7 % 0-1 [facility] Chloride [Moles/Vol] 105 mmol/L 98-107 [facility] Eosinophils/100 WBC (Bld) 1.5 % 0-5 [facility] Glucose [Mass/Vol] 96 mg/dL 74-[address] [facility] Neutrophils (Bld) [#/Vol] 5.3 10*3/uL 2.0-7.7 [facility] Neutrophils/100 WBC (Bld) 70.5 % 47-70 [facility] Potassium [Moles/Vol] 3.8 mmol/L 3.5-5.1 [facility] Sodium [Moles/Vol] 141 mmol/L 136-[address] [facility] WBC (Bld) [#/Vol] 7.6 10*3/uL 4.4-11.[address] [facility] Blood erythrocytes count (nu mber/volume)Ordered By: Dr. Garcia on 04-08-2023 RBC (Bld) [#/Vol] 5.14 10*6/uL 4.2-5.4 [facility] Blood hemoglobin measurement (mass/volume)Ordered By: Dr. Garcia on 04-08-2023 Hemoglobin (Bld) [Mass/Vol] 15.1 g/dL 12.0-15.0 [facility] Blood lymphocytes/100 leukoc ytesOrdered By: Dr. Garcia on 04-08-2023 Lymphocytes/100 WBC (Bld) 19.2 % 19-41 [facility] Blood monocytes/100 leukocyt esOrdered By: Dr. Garcia on 04-08-2023 Monocytes/100 WBC (Bld) 7.7 % 0-10 [facility] Blood platelet mean volumeOr dered By: Dr. Garcia on 04-08-2023 Platelet mean volume (Bld) [Entitic vol] 10.2 fL 6.2-12.0 [facility] Determination of erythrocyte mean corpuscular volume (MCV)Ordered By: Dr. Garcia on 04-08-2023 MCV (RBC) [Entitic vol] 89.1 fL 81-99 [facility] Hematocrit Auto (Bld) [Volum e fraction]Ordered By: Dr. Garcia on 04-08-2023 Hematocrit (Bld) [Volume fraction] 45.8 % 37-47 [facility] Laboratory - Chemistry and C hemistry - challengeOrdered By: Dr. Garcia on 04-08-2023 CO2 [Moles/Vol] 29.0 mmol/L 21.0-32.0 [facility] Urea nitrogen/Creatinine [Mass ratio] 24.0 mg/mg 10-20 [facility] Laboratory - Hematology and Cell countsOrdered By: Dr. Garcia on 04-08-2023 Erythrocyte distribution width (RBC) [Entitic vol] 46.6 fL 35.1-43.9 [facility] Erythrocyte distribution width (RBC) [Ratio] 14.4 % 11.6-14.6 [facility] Immature granulocytes/100 WBC (Bld) 0.400 % 0.0-0.9 [facility] Comment on above: IG% - Immature Granu locytes (promyelocytes, myelocytes and metamyelocytes) > 1% indicates that a LEFT SHIFT is Present. MCH (RBC) [Entitic mass] 29.4 pg 27.0-32.0 [facility] Nucleated RBC/100 WBC (Bld) [Ratio] 0 % 0-5 [facility] MCHC Auto (RBC) [Mass/Vol]Or dered By: Dr. Garcia on 04-08-2023 MCHC (RBC) [Mass/Vol] 33.0 g/dL 32-36 [facility] No Panel InformationOrdered By: Dr. Garcia on 04-08-2023 Troponin I High Sensitivity 9 pg/mL 3.0-54.0 [facility] Comment on above: Please Note: New Kim t Units and Gender Specific Reference Ranges. For more information see Policy Stat Procedure [place] High Sensitivity Troponin (TNIH) and attachments. Estimated Creatinine Clearance Calc 50.23 ml/min [facility] Estimated GFR (MDRD) Amer 83 mL/min >60 [facility] Comment on above: GFR Calc Estimated GFR (MDRD) Non-Af Amer 68 mL/min >60 [facility] Comment on above: Non- GFR Calc Platelets bldOrdered By: Dr. Garcia on 04-08-2023 Platelets (Bld) [#/Vol] 171 10*3/uL 150-450 [facility] Serum or plasma calcium stefania urement (mass/volume)Ordered By: Dr. Garcia on 04-08-2023 Calcium [Mass/Vol] 9.6 mg/dL 8.5-10.[address] [facility] Serum or plasma creatinine m easurement (mass/volume)Ordered By: Dr. Garcia on 04-08-2023 Creatinine [Mass/Vol] 0.88 mg/dL 0.55-1.02 [facility] Comment on above: The validity of the calculated GFR & GFRAA in patients over 70 years has not been determined. Clinical correlation is essential. Serum or plasma urea nitroge n measurement (mass/volume)Ordered By: Dr. Garcia on 04-08-2023 Urea nitrogen [Mass/Vol] 21 mg/dL 7-18 [facility] Thin prep Papanicolaou smear with manual screeningOrdered By: Dr. Garcia on 04-08-2023 Thin prep Papanicolaou smear with manual screening 7 5-15 [facility] Culture, urineOrdered By: Dr Hero Campbell on 04-01-2023 Bacteria identified Cx Nom (U) Positive [facility] Basophil percentageOrdered B y: Dr. Campbell on 03-31-2023 Basophil percentage 0 SEEN /hpf 0-5 [facility] Bilirubin Test strip Ql (U)O rdered By: Dr. Campbell on 03-31-2023 Bilirubin Ql (U) Negative Negative [facility] Ketones Test strip Ql (U)Ord ered By: Dr. Campbell on 03-31-2023 Ketones Ql (U) Negative Negative [facility] Mucus LM Ql (Urine sed)Order ed By: Dr. Campbell on 03-31-2023 Mucus Ql (Urine sed) 0 SEEN /hpf [facility] Nitrite Test strip Ql (U)Ord ered By: Dr. Campbell on 03-31-2023 Nitrite Ql (U) Negative Negative [facility] Protein Test strip Ql (U)Ord ered By: Dr. Campbell on 03-31-2023 Protein Ql (U) Negative Negative [facility] Squamous epithelial cells de tection in urine sediment by light microscopyOrdered By: Dr. Campbell on 03-31-2023 Epithelial cells.squamous LM Ql (Urine sed) 5-10 SEEN /hpf 5-10 [facility] Urine blood detectionOrdered By: Dr. Campbell on 03-31-2023 RBC Ql (U) Negative Negative [facility] RBC Ql (U) 0 SEEN /hpf 0-5 [facility] Urine clarityOrdered By: Dr. Campbell on 03-31-2023 Clarity (U) Clear Clear [facility] Urine color determinationOrd ered By: Dr. Campbell on 03-31-2023 Color (U) Yellow Yellow [facility] Urine glucose detectionOrder ed By: Dr. Campbell on 03-31-2023 Glucose Ql (U) Normal mg/dl Normal [facility] Urine leukocyte esterase det ection by dipstickOrdered By: Dr. Campbell on 03-31-2023 Leukocyte esterase Test strip Ql (U) Negative Negative [facility] Urine pHOrdered By: Dr. Cummings n 03-31-2023 pH (U) 6.0 [pH] 5.0 - 8.0 [facility] Urine sediment bacteria coun t by microscopy (number/high power field)Ordered By: Dr. Campbell on 03-31-2023 Bacteria LM.HPF (Urine sed) [#/Area] 1 /[HPF] None Seen [facility] Urine specific gravity measu rementOrdered By: Dr. Campbell on 03-31-2023 Specific gravity (U) [Rel density] 1.010 1.002-1.03 0 [facility] Urobilinogen Auto test strip Ql (U)Ordered By: Dr. Campbell on 03-31-2023 Urobilinogen Ql (U) Normal mg/dl Normal [facility] LABORATORYOrdered By: SYSTEM SYSTEM on 11-09-2022 Basophils [...] Invalid Interpretation Code 0.0 - 0.7 10^3/mcL Workflow SS Eosinophils/100 WBC (Bld) 2.5 % [...] Invalid Interpretation Code 34.0 - 46.0 % Workflow SS Hemoglobin (Bld) [Mass/Vol] 14.8 G/dL Invalid Interpretation Code 12.0 - 16.0 G/dL Workflow SS Lymphocytes (Bld) [#/Vol] 1.2 103/mcL Invalid Interpretation Code 0.9 - 4.3 10^3/mcL Workflow SS Lymphocytes/100 WBC (Bld) 18.6 % Invalid Interpretation Code 20.0 - 40.0 % Workflow SS MCH (RBC) [Entitic mass] 29.0 pg Invalid Interpretation Code 27.0 - 33.0 pg Workflow SS MCHC 33.2 G/dL Invalid Interpretation Code 32.0 - 36.0 G/dL Workflow SS MCV (RBC) [Entitic vol] 87.2 [...] Invalid Interpretation Code 136 - 145 mEq/L AH ADM SS Urea nitrogen [Mass/Vol] 19.0 mg/dL [...] Auto (Unsp spec) [#/Vol] 1.75 10*3/uL 0.83-4.51 [facility] Basophil percentageOrdered B y: Dr. Benton on 10-20-2022 Basophil percentage < 0.2 [facility]/100 WBC (Bld) 1.0 % 0-1 [facility] Bilirubin [Mass/Vol] 0.70 mg/dL 0.20-1.00 [facility] Comment on above: For patients on eltr ombopag therapy, use of Dimension [place] TBIL is not recommended. Chloride [Moles/Vol] 107 mmol/L 98-107 [facility] Eosinophils/100 WBC (Bld) 1.8 % 0-5 [facility] Glucose [Mass/Vol] 89 mg/dL 74-[address] [facility] Neutrophils (Bld) [#/Vol] 5.8 10*3/uL 2.0-7.7 [facility] Neutrophils/100 WBC (Bld) 68.4 % 47-70 [facility] Potassium [Moles/Vol] 4.2 mmol/L 3.5-5.1 [facility] Protein [Mass/Vol] 7.0 g/dL 6.4-8.[address] [facility] Sodium [Moles/Vol] 140 mmol/L 136-[address] [facility] WBC (Bld) [#/Vol] 8.4 10*3/uL 4.4-11.[address] [facility] Blood erythrocytes count (nu mber/volume)Ordered By: Dr. Benton on 10-20-2022 RBC (Bld) [#/Vol] 5.49 10*6/uL 4.2-5.4 [facility] Blood hemoglobin measurement (mass/volume)Ordered By: Dr. Benton on 10-20-2022 Hemoglobin (Bld) [Mass/Vol] 15.6 g/dL 12.0-15.0 [facility] Blood lymphocytes/100 leukoc ytesOrdered By: Dr. Benton on 10-20-2022 Lymphocytes/100 WBC (Bld) 20.8 % 19-41 [facility] Blood monocytes/100 leukocyt esOrdered By: Dr. Benton on 10-20-2022 Monocytes/100 WBC (Bld) 7.5 % 0-10 [facility] Blood platelet mean volumeOr dered By: Dr. Benton on 10-20-2022 Platelet mean volume (Bld) [Entitic vol] 10.1 fL 6.2-12.0 [facility] Determination of erythrocyte mean corpuscular volume (MCV)Ordered By: Dr. Benton on 10-20-2022 MCV (RBC) [Entitic vol] 87.8 fL 81-99 [facility] Erythrocyte sedimentation ra teOrdered By: Dr. Benton on 10-20-2022 ESR (Bld) [Velocity] 19 mm/h 0-30 [facility] Hematocrit Auto (Bld) [Volum e fraction]Ordered By: Dr. Benton on 10-20-2022 Hematocrit (Bld) [Volume fraction] 48.2 % 37-47 [facility] Laboratory - Chemistry and C hemistry - challengeOrdered By: Dr. Benton on 10-20-2022 ALP [Catalytic activity/Vol] 126 U/L 45-117 [facility] ALT [Catalytic activity/Vol] 18 U/L 13-56 [facility] Amylase [Catalytic activity/Vol] 22 U/L 5-55 [facility] CO2 [Moles/Vol] 28.0 mmol/L 21.0-32.0 [facility] Free T4 [Mass/Vol] 1.41 ng/dL 0.76-1.[address] [facility] Globulin (S) [Mass/Vol] 3.1 g/dL 2.2-4.2 [facility] Lipase [Catalytic activity/Vol] 88 U/L 73-393 [facility] Urea nitrogen/Creatinine [Mass ratio] 20.8 mg/mg 10-20 [facility] Laboratory - Hematology and Cell countsOrdered By: Dr. Benton on 10-20-2022 Erythrocyte distribution width (RBC) [Entitic vol] 47.9 fL 35.1-43.9 [facility] Erythrocyte distribution width (RBC) [Ratio] 14.9 % 11.6-14.6 [facility] Immature granulocytes/100 WBC (Bld) 0.500 % 0.0-0.9 [facility] Comment on above: IG% - Immature Granu locytes (promyelocytes, myelocytes and metamyelocytes) > 1% indicates that a LEFT SHIFT is Present. MCH (RBC) [Entitic mass] 28.4 pg 27.0-32.0 [facility] Nucleated RBC/100 WBC (Bld) [Ratio] 0 % 0-5 [facility] MCHC Auto (RBC) [Mass/Vol]Or dered By: Dr. Benton on 10-20-2022 MCHC (RBC) [Mass/Vol] 32.4 g/dL 32-36 [facility] No Panel InformationOrdered By: Dr. Benton on 10-20-2022 Centromere B Antibody <0.2 AI 0.0-0.9 [facility] Estimated GFR (MDRD) Amer 96 mL/min >60 [facility] Comment on above: GFR Calc Estimated GFR (MDRD) Non-Af Amer 79 mL/min >60 [facility] Comment on above: Non- GFR Calc [employer] Antibody <0.2 AI 0.0-0.9 [facility] Thyroid Stimulating Hormone (TSH) 1.66 uIU/mL 0.358-3.74 [facility] Vitamin D 25-Hydroxy 59.8 ng/mL [facility] Comment on above: Vitamin D 25(OH) Sta tus Range Deficiency <20 ng/mL (50nmol/L) Insufficiency 20 - 30 ng/mL (50 - 75 nmol/L) Sufficiency 30 - 100 ng/mL (75 - 250 nmol/L) Toxicity >100 ng/mL (>250 nmol/L) Platelets bldOrdered By: Dr. Benton on 10-20-2022 Platelets (Bld) [#/Vol] 197 10*3/uL 150-450 [facility] Serum DNA double strand anti body assay (units/volume)Ordered By: Dr. Benton on 10-20-2022 DNA double strand Ab Qn (S) [IU]/mL 0-9 [facility] Comment on above: Negative <5 Equivoca l 5 - 9 Positive >9 Serum Myrtle-1 antibody assay (u nits/volume)Ordered By: Dr. Benton on 10-20-2022 Myrtle-1 extractable nuclear Ab Qn (S) <0.2 AI 0.0-0.9 [facility] Serum Scl-70 extractable nuc lear antibody assay (units/volume)Ordered By: Dr. Benton on 10-20-2022 SCL-70 extractable nuclear Ab Qn (S) 0.2 AI 0.0-0.9 [facility] Serum Benton extractable nucl ear antibody detectionOrdered By: Dr. Benton on 10-20-2022 Esperanza extractable nuclear Ab Ql (S) <0.2 AI 0.0-0.9 [facility] Serum or plasma C reactive p rotein measurement (mass/volume)Ordered By: Dr. Benton on 10-20-2022 CRP [Mass/Vol] mg/L 0.0-3.0 [facility] Comment on above: C-Reactive Protein ( CRP) provides useful information for thediagnosis, therapy and monitoring of inflammatory processesand associated diseases. For the evaluation of Relative Riskfor Cardiovascular Disease, a High Sensitivity CRP (HSCRP)should be ordered. Serum or plasma albumin stefania urement (mass/volume)Ordered By: Dr. Benton on 10-20-2022 Albumin [Mass/Vol] 3.9 g/dL 3.2-5.[address] [facility] Serum or plasma albumin/glob ulin mass ratioOrdered By: Dr. Benton on 10-20-2022 Albumin/Globulin [Mass ratio] 1.3 {ratio} 0.9-2.4 [facility] Serum or plasma calcium stefania urement (mass/volume)Ordered By: Dr. Benton on 10-20-2022 Calcium [Mass/Vol] 9.2 mg/dL 8.5-10.[address] [facility] Serum or plasma creatinine m easurement (mass/volume)Ordered By: Dr. Benton on 10-20-2022 Creatinine [Mass/Vol] 0.77 mg/dL 0.55-1.02 [facility] Comment on above: The validity of the calculated GFR & GFRAA in patients over 70 years has not been determined. Clinical correlation is essential. Serum or plasma urea nitroge n measurement (mass/volume)Ordered By: Dr. Benton on 10-20-2022 Urea nitrogen [Mass/Vol] 16 mg/dL 7-18 [facility] Serum rheumatoid factor dete ctionOrdered By: Dr. Benton on 10-20-2022 Rheumatoid factor Ql (S) < 10.0 IU/mL <15 [facility] Thin prep Papanicolaou smear with manual screeningOrdered By: Dr. Benton on 10-20-2022 Thin prep Papanicolaou smear with manual screening 14 U/L 15-37 [facility] Thin prep Papanicolaou smear with manual screening 5 5-15 [facility] No Panel Informationon 05-02 Estimated GFR (MDRD) Amer 77 mL/min >60 [facility] Work Phone: Comment on above: GFR Calc Estimated GFR (MDRD) Non-Af Amer 63 mL/min >60 [facility] Work Phone: Comment on above: Non- GFR Calc Serum or plasma creatinine m easurement (mass/volume)on 05-02-2022 Creatinine [Mass/Vol] 0.94 mg/dL 0.55-1.02 [facility] Work Phone: Comment on above: The validity of the calculated GFR & GFRAA in patients over 70 years has not been determined. Clinical correlation is essential. Serum or plasma urea nitroge n measurement (mass/volume)on 05-02-2022 Urea nitrogen [Mass/Vol] 11 mg/dL 7-18 [facility] Work Phone: Absolute lymphocyte counton 02-20-2022 Lymphocytes Auto (Unsp spec) [#/Vol] 1.50 10*3/uL 0.83-4.51 [facility] Work Phone: Basophil percentageon 2021 Basophils/100 WBC (Bld) 0.3 % 0-1 [facility] Work Phone: Bilirubin [Mass/Vol] 0.20 mg/dL 0.20-1.00 [facility] Work Phone: Comment on above: For patients on eltr ombopag therapy, use of Dimension [place] TBIL is not recommended. Chloride [Moles/Vol] 107 mmol/L 98-107 [facility] Work Phone: Eosinophils/100 WBC (Bld) 0.8 % 0-5 [facility] Work Phone: Glucose [Mass/Vol] 97 mg/dL 74-[address] [facility] Work Phone: Neutrophils (Bld) [#/Vol] 4.0 10*3/uL 2.0-7.7 [facility] Work Phone: Neutrophils/100 WBC (Bld) 65.5 % 47-70 [facility] Work Phone: Potassium [Moles/Vol] 3.5 mmol/L 3.5-5.1 [facility] Work Phone: Protein [Mass/Vol] 6.5 g/dL 6.4-8.[address] [facility] Work Phone: Sodium [Moles/Vol] 142 mmol/L 136-145 [facility] Work Phone: [phone] WBC (Bld) [#/Vol] 6.2 10*3/uL 4.4-11.[address] [facility] Work Phone: Blood erythrocytes count (nu mber/volume)on 02-20-2022 RBC (Bld) [#/Vol] 4.80 10*6/uL 4.2-5.4 [facility]: Blood hemoglobin measurement (mass/volume)on 02-20-2022 Hemoglobin (Bld) [Mass/Vol] 14.1 g/dL 12.0-15.0 [facility] Work Phone: Blood lymphocytes/100 leukoc yteson 02-20-2022 Lymphocytes/100 WBC (Bld) 24.4 % 19-41 [facility] Work Phone: Blood monocytes/100 leukocyt eson 02-20-2022 Monocytes/100 WBC (Bld) 8.3 % 0-10 [facility] Work Phone: Blood platelet mean volumeon 02-20-2022 Platelet mean volume (Bld) [Entitic vol] 10.0 fL 6.2-12.0 [facility] Work Phone: Determination of erythrocyte mean corpuscular volume (MCV)on 02-20-2022 MCV (RBC) [Entitic vol] 90.6 fL 81-99 [facility] Work Phone: Direct bilirubinon 2 Bilirubin.direct [Mass/Vol] 0.10 mg/dL 0.00-0.30 [facility] Work Phone: Hematocrit Auto (Bld) [Volum e fraction]on 04-04-2022 Hematocrit (Bld) [Volume fraction] 43.5 % 37-47 [facility] Work Phone: INR in Blood by Coagulation assayon 02-20-2022 INR Coag (Bld) [Relative time] 1.0 {INR} [facility] Work Phone: Laboratory - Chemistry and C hemistry - challengeon 02-20-2022 ALP [Catalytic activity/Vol] 97 U/L 45-117 [facility] Work Phone: ALT [Catalytic activity/Vol] 18 U/L 13-56 [facility] Work Phone: CO2 [Moles/Vol] 30.0 mmol/L 21.0-32.0 [facility] Work Phone: Globulin (S) [Mass/Vol] 3.2 g/dL 2.2-4.2 [facility] Work Phone: Lipase [Catalytic activity/Vol] 38 U/L 73-393 [facility] Work Phone: Urea nitrogen/Creatinine [Mass ratio] 17.8 mg/mg 10-20 [facility] Work Phone: Laboratory - Coagulationon 0 02-20-2022 PT Coag (PPP) [Time] 12.3 s 11.7-14.9 [facility] Work Phone: Laboratory - Hematology and Cell countson 02-20-2022 Erythrocyte distribution width (RBC) [Entitic vol] 45.6 fL 35.1-43.9 [facility] Work Phone: Erythrocyte distribution width (RBC) [Ratio] 13.7 % 11.6-14.6 [facility] Work Phone: Immature granulocytes/100 WBC (Bld) 0.700 % 0.0-0.9 [facility] Work Phone: Comment on above: IG% - Immature Granu locytes (promyelocytes, myelocytes and metamyelocytes) > 1% indicates that a LEFT SHIFT is Present. MCH (RBC) [Entitic mass] 29.4 pg 27.0-32.0 [facility] Work Phone: Nucleated RBC/100 WBC (Bld) [Ratio] 0 % 0-5 [facility] Work Phone: MCHC Auto (RBC) [Mass/Vol]on 02-20-2022 MCHC (RBC) [Mass/Vol] 32.4 g/dL 32-36 [facility] Work Phone: No Panel Informationon 02-20 Estimated Creatinine Clearance Calc 59.57 ml/min [facility] Work Phone: Estimated GFR (MDRD) Amer 86 mL/min >60 [facility] Work Phone: Comment on above: GFR Calc Estimated GFR (MDRD) Non-Af Amer 71 mL/min >60 [facility] Work Phone: Comment on above: Non- GFR Calc Troponin I High Sensitivity 4 pg/mL 3.0-54.0 [facility] Work Phone: Comment on above: Please Note: New Kim t Units and Gender Specific Reference Ranges. For more information see Policy Stat Procedure [place] High Sensitivity Troponin (TNIH) and attachments. Platelets bldon 02-20-2022 Platelets (Bld) [#/Vol] 171 10*3/uL 150-450 [facility] Work Phone: Serum or plasma albumin stefania urement (mass/volume)on 02-20-2022 Albumin [Mass/Vol] 3.3 g/dL 3.2-5.[address] [facility] Work Phone: Serum or plasma calcium stefania urement (mass/volume)on 02-20-2022 Calcium [Mass/Vol] 8.7 mg/dL 8.5-10.[address] [facility] Work Phone: Serum or plasma creatinine m easurement (mass/volume)on 02-20-2022 Creatinine [Mass/Vol] 0.84 mg/dL 0.55-1.02 [facility] Work Phone: Comment on above: The validity of the calculated GFR & GFRAA in patients over 70 years has not been determined. Clinical correlation is essential. Serum or plasma urea nitroge n measurement (mass/volume)on 02-20-2022 Urea nitrogen [Mass/Vol] 15 mg/dL 7-18 [facility] Work Phone: Thin prep Papanicolaou smear with manual screeningon 02-20-2022 Thin prep Papanicolaou smear with manual screening 11 U/L 15-37 [facility] Work Phone: Thin prep Papanicolaou smear with manual screening 5 5-15 [facility] Work Phone: Absolute lymphocyte counton 02-18-2022 Lymphocytes Auto (Unsp spec) [#/Vol] 1.64 10*3/uL 0.83-4.51 [facility] Work Phone: Basophil percentageon 2021 Basophils/100 WBC (Bld) 0.9 % 0-1 [facility] Work Phone: [phone] Chloride [Moles/Vol] 108 mmol/L 98-107 [facility] Work Phone: Eosinophils/100 WBC (Bld) 3.1 % 0-5 [facility] Work Phone: [phone] Glucose [Mass/Vol] 112 mg/dL 74-[address] [facility] Work Phone: Comment on above: Fasting Glucose resu lt from 100 to 125 mg/dL suggests IMPAIRED HOMEOSTASIS per A.D.A. criteria. Neutrophils (Bld) [#/Vol] 3.8 10*3/uL 2.0-7.7 [facility] Work Phone: [phone] Neutrophils/100 WBC (Bld) 58.7 % 47-70 [facility] Work Phone: Potassium [Moles/Vol] 3.6 mmol/L 3.5-5.1 [facility] Work Phone: [phone] Sodium [Moles/Vol] 141 mmol/L 136-[address] [facility] Work Phone: WBC (Bld) [#/Vol] 6.4 10*3/uL 4.4-11.[address] [facility] Work Phone: Blood erythrocytes count (nu mber/volume)on 02-18-2022 RBC (Bld) [#/Vol] 5.18 10*6/uL 4.2-5.4 [facility] Work Phone: Blood hemoglobin measurement (mass/volume)on 02-18-2022 Hemoglobin (Bld) [Mass/Vol] 15.0 g/dL 12.0-15.0 [facility] Work Phone: Blood lymphocytes/100 leukoc yteson 02-18-2022 Lymphocytes/100 WBC (Bld) 25.5 % 19-41 [facility] Work Phone: Blood monocytes/100 leukocyt eson 02-18-2022 Monocytes/100 WBC (Bld) 11.2 % 0-10 [facility] Work Phone: Blood platelet mean volumeon 02-18-2022 Platelet mean volume (Bld) [Entitic vol] 9.8 fL 6.2-12.0 [facility] Work Phone: Determination of erythrocyte mean corpuscular volume (MCV)on 02-18-2022 MCV (RBC) [Entitic vol] 88.2 fL 81-99 [facility] Work Phone: Hematocrit Auto (Bld) [Volum e fraction]on 02-18-2022 Hematocrit (Bld) [Volume fraction] 45.7 % 37-47 [facility] Work Phone: INR in Blood by Coagulation assayon 02-18-2022 INR Coag (Bld) [Relative time] 1.0 {INR} [facility] Work Phone: Laboratory - Chemistry and C hemistry - challengeon 02-18-2022 CO2 [Moles/Vol] 29.0 mmol/L 21.0-32.0 [facility] Work Phone: Magnesium [Mass/Vol] 2.1 mg/dL 1.6-2.6 [facility] Work Phone: Urea nitrogen/Creatinine [Mass ratio] 13.9 mg/mg 10-20 [facility] Work Phone: Laboratory - Coagulationon 0 02-18-2022 aPTT Coag (Bld) [Time] 28.9 s 24.1-36.2 [facility] Work Phone: PT Coag (PPP) [Time] 12.6 s 11.7-14.9 [facility] Work Phone: Laboratory - Hematology and Cell countson 02-18-2022 Erythrocyte distribution width (RBC) [Entitic vol] 43.7 fL 35.1-43.9 [facility] Work Phone: Erythrocyte distribution width (RBC) [Ratio] 13.5 % 11.6-14.6 [facility] Work Phone: Immature granulocytes/100 WBC (Bld) 0.600 % 0.0-0.9 [facility] Work Phone: Comment on above: IG% - Immature Granu locytes (promyelocytes, myelocytes and metamyelocytes) > 1% indicates that a LEFT SHIFT is Present. MCH (RBC) [Entitic mass] 29.0 pg 27.0-32.0 [facility] Work Phone: Nucleated RBC/100 WBC (Bld) [Ratio] 0 % 0-5 [facility] Work Phone: MCHC Auto (RBC) [Mass/Vol]on 02-18-2022 MCHC (RBC) [Mass/Vol] 32.8 g/dL 32-36 [facility] Work Phone: No Panel Informationon 02-18 Troponin I High Sensitivity 5 pg/mL 3.0-54.0 [facility] Work Phone: Comment on above: Please Note: New Kim t Units and Gender Specific Reference Ranges. For more information see Policy Stat Procedure [place] High Sensitivity Troponin (TNIH) and attachments. Estimated Creatinine Clearance Calc 51.11 ml/min [facility] Work Phone: Estimated GFR (MDRD) Amer 93 mL/min >60 [facility] Work Phone: Comment on above: GFR Calc Estimated GFR (MDRD) Non-Af Amer 77 mL/min >60 [facility] Work Phone: Comment on above: Non- GFR Calc Platelets bldon 02-18-2022 Platelets (Bld) [#/Vol] 207 10*3/uL 150-450 [facility] Work Phone: Serum or plasma calcium stefania urement (mass/volume)on 02-18-2022 Calcium [Mass/Vol] 8.8 mg/dL 8.5-10.[address] [facility] Work Phone: Serum or plasma creatinine m easurement (mass/volume)on 02-18-2022 Creatinine [Mass/Vol] 0.79 mg/dL 0.55-1.02 [facility] Work Phone: Comment on above: The validity of the calculated GFR & GFRAA in patients over 70 years has not been determined. Clinical correlation is essential. Serum or plasma urea nitroge n measurement (mass/volume)on 02-18-2022 Urea nitrogen [Mass/Vol] 11 mg/dL 7-18 [facility] Work Phone: Thin prep Papanicolaou smear with manual screeningon 02-18-2022 Thin prep Papanicolaou smear with manual screening 4 5-15 [facility] Work Phone: Basophil percentageon 2021 Basophil percentage 4.4 mg/dL 2.5-4.9 [facility] Work Phone: Chloride [Moles/Vol] 106 mmol/L 98-107 [facility] Work Phone: Glucose [Mass/Vol] 92 mg/dL 74-[address] [facility] Work Phone: Potassium [Moles/Vol] 3.9 mmol/L 3.5-5.1 [facility] Work Phone: Sodium [Moles/Vol] 141 mmol/L 136-[address] [facility] Work Phone: WBC (Bld) [#/Vol] 7.7 10*3/uL 4.4-11.[address] [facility] Work Phone: Blood erythrocytes count (nu mber/volume)on 01-18-2022 RBC (Bld) [#/Vol] 5.55 10*6/uL 4.2-5.4 [facility] Work Phone: Blood hemoglobin measurement (mass/volume)on 01-18-2022 Hemoglobin (Bld) [Mass/Vol] 16.9 g/dL 12.0-15.0 [facility] Work Phone: Blood platelet mean volumeon 01-18-2022 Platelet mean volume (Bld) [Entitic vol] 9.7 fL 6.2-12.0 [facility] Work Phone: Determination of erythrocyte mean corpuscular volume (MCV)on 01-18-2022 MCV (RBC) [Entitic vol] 90.5 fL 81-99 [facility] Work Phone: Hematocrit Auto (Bld) [Volum e fraction]on 01-18-2022 Hematocrit (Bld) [Volume fraction] 50.2 % 37-47 [facility] Work Phone: Laboratory - Chemistry and C hemistry - challengeon 01-18-2022 CO2 [Moles/Vol] 31.0 mmol/L 21.0-32.0 [facility] Work Phone: Urea nitrogen/Creatinine [Mass ratio] 18.6 mg/mg 10-20 [facility] Work Phone: Laboratory - Hematology and Cell countson 01-18-2022 Erythrocyte distribution width (RBC) [Entitic vol] 46.6 fL 35.1-43.9 [facility] Work Phone: Erythrocyte distribution width (RBC) [Ratio] 13.8 % 11.6-14.6 [facility] Work Phone: MCH (RBC) [Entitic mass] 30.5 pg 27.0-32.0 [facility] Work Phone: MCHC Auto (RBC) [Mass/Vol]on 01-18-2022 MCHC (RBC) [Mass/Vol] 33.7 g/dL 32-36 [facility] Work Phone: No Panel Informationon 01-18 Estimated Creatinine Clearance Calc 50.37 ml/min [facility] Work Phone: Estimated GFR (MDRD) Amer 74 mL/min >60 [facility] Work Phone: Comment on above: GFR Calc Estimated GFR (MDRD) Non-Af Amer 61 mL/min >60 [facility] Work Phone: Comment on above: Non- GFR Calc Platelets bldon 01-18-2022 Platelets (Bld) [#/Vol] 233 10*3/uL 150-450 [facility] Work Phone: Serum or plasma albumin stefania urement (mass/volume)on 01-18-2022 Albumin [Mass/Vol] 3.6 g/dL 3.2-5.[address] [facility] Work Phone: Serum or plasma calcium stefania urement (mass/volume)on 01-18-2022 Calcium [Mass/Vol] 9.2 mg/dL 8.5-10.[address] [facility] Work Phone: Serum or plasma creatinine m easurement (mass/volume)on 01-18-2022 Creatinine [Mass/Vol] 0.97 mg/dL 0.55-1.02 [facility] Work Phone: Comment on above: The validity of the calculated GFR & GFRAA in patients over 70 years has not been determined. Clinical correlation is essential. Serum or plasma urea nitroge n measurement (mass/volume)on 01-18-2022 Urea nitrogen [Mass/Vol] 18 mg/dL 7-18 [facility] Work Phone: Basophil percentageon 2020 Creatinine [Mass/Vol] 0.8 mg/dL 0.55-1.02 [facility] Work Phone: No Panel Informationon 11-17 Bedside Estimated GFR (eGFR) > 60.0000 mL/min >60 [facility] Work Phone: MRI BRAIN WO/W [...] Improvement: None. New Enhancing Lesions: None T2 [place] of Disease: Mild. Parenchymal Volume Loss: None. [...] by greater than or equal to 2mm). Epic Cadence Analyst: PSCB Transcribe Date/Time: Apr 12 2021 2:27P Dictated by : MELIZA MOMIN MD This examination was interpreted and the report reviewed and electronically signed by: MELIZA MOMIN MD on Apr 12 2021 2:33PM EST [id number] Normal [facility] CNOVon 02-09-2021 CNOV Office Visit ([facility] ) ----- CHRISTINANGÉLICA SNOW ([id number]) 1955 F Date Time Provider Department 02/09/21 3:00 PM MELI GORE [facility] During your visit today, we recorded the [...] Comments: Heartburn PREDNISONE 12/15/2008 Comments: Destroyed bone. [id number] REDUCTASE INHIBIT*04/27/2011 5 - Intolerance TRICOR (FENOFIBRATE [...] by MELI GORE MD on 02/09/21 Normal [facility] XR Chest PA and Lateralon IMPRESSION: Trace linear atelectasis at the left base. Epic Cadence Analyst: PSCB Transcribe Date/Time: Nov 25 2020 3:18P Dictated by : JOHANA DEUTSCH MD This examination was interpreted and the report reviewed and electronically signed by: JOHANA DEUTSCH MD on Nov 25 2020 3:19PM [facility] DIVISION OF RADIOLOGY * * *Final Report* [...] the thoracic spine. DIVISION OF RADIOLOGY Provider, [facility] - 11/25/2020 * * *Final Report* * [...] Trace linear atelectasis at the left base. Epic Cadence Analyst: PSCB Transcribe Date/Time: Nov 25 2020 3:18P Dictated by : JOHANA DEUTSCH MD This examination was interpreted and the report reviewed and electronically signed by: JOHANA DEUTSCH MD on Nov 25 2020 3:19PM EST [facility] Radiology Study observation (narrative) Deangelo Almonte XR Chest PA and LateralOrder ed By: Cc Provider on 11-25-2020 [facility] PROGRESSon 12-22-2017 PROGRESS HNO ID: [id number] thor: Yogesh Quinn Naeem: (none)Author Type: PhysicianType: Progress NotesFiled: 12/22/2017 12:15 [...] to beprimarily managing these problems here in [place]. At [...] visit, with more than50% of the total [id number] time of the visit in counseling /coordination of care. Normal [facility] CNOVon 12-21-2017 CNOV Office Visit (AGMIL) CHRISTINANGÉLICA SNOW ([id number]) 1955 FDate Time Provider Department12/21/17 10:30 AM [...] for to vascular surgeons to be following thesame patient for the same issues I discussed with the patient the possibilitythat potentially she should continue her follow-up with Dr. Barnett as he seemsto be primarily managing these problems [place]. At this point in timeI tell her [...] with more than 50% of the total [id number] of the visit in counseling / coordination of care.Referring Provider: ZHANE PARRA [[id number]]Allergies As of Date: 12/21/2017 Noted Allergy ReactionANTIHISTAMINES 04/28/2004 Comments: messes her head upASA (SALICYLATES) 12/04/2008CODEINE 04/28/2004 Comments: nauseaFENTANYL 02/19/2012 14 - Other: See Comments Comments: Sweating/ FlushingMORPHINE 04/28/2004 Comments: nausea and vomitingPLAVIX (CLOPIDOGREL BISULFATE) 12/18/2011 14 - Other: See Comments Comments: HeartburnPREDNISONE 12/15/2008 Comments: Destroyed bone.[id number] REDUCTASE INHIBIT*04/27/2011 5 - IntoleranceTRICOR (FENOFIBRATE MICRONIZED) 04/27/2011 5 - IntoleranceDate Reviewed: 12/21/2017Reviewed by: Mell Medina LPN - Fully AssessedReason for Visit: Peripheral Vascular Disease (PVD) [1930] Cmt: Angélica is here for follo up [...] vascular occlusive disease (HCC) [I7*Letter TextEncounter Number: [id number] Status:Closed by YOGESH ONOFRE MD on 12/22/17 [facility] Vital Signs Date Time Vital Sign Value Performing Clinician Brandon galvez 08-06-2025 04:21-0400 Body temperature 98 [degF] Dr. Daron Benton MD Work Phone: [facility] 08-06-2025 04:21-0400 Diastolic blood pressure 71 mm[Hg] Dr. Daron Benton MD Work Phone: [facility] 08-06-2025 04:21-0400 Heart rate 55 /min Dr. Daron Benton MD Work Phone: [facility] 08-06-2025 04:21-0400 Respiratory rate 12 /min Dr. Daron Benton MD Work Phone: [facility] 08-06-2025 04:21-0400 SaO2% (BldA) [Mass fraction] 94 % Dr. Daron Benton MD Work Phone: [phone] [place] [address] 08-06-2025 04:21-0400 Systolic blood pressure 165 mm[Hg] Dr. Daron Benton MD Work Phone: [phone] [place] [address] 08-06-2025 01:30-0400 Inhaled oxygen flow rate 3 L/min Dr. Daron Benton MD Work Phone: [phone])[phone] [place] [address] 08-05-2025 20:54-0400 Body height 165.[address] Daron Benton MD Work Phone: [phone] [place] [address] 08-05-2025 20:54-0400 Body mass index (BMI) [Ratio] 19.1 kg/m2 Dr. Daron Benton MD Work Phone: [phone])[phone] [place] [address] 08-05-2025 20:54-0400 Body weight 52.[address] Daron Benton MD Work Phone: [phone](875)[phone] [place] [address] 08-05-2025 07:47-0400 Body mass index (BMI) [Ratio] 18.4 kg/m2 Dr. Daron Benton MD Work Phone: [facility] 08-05-2025 07:47-0400 Body weight 50.[address] Daron Benton MD Work Phone: [phone] [place] [address] 08-05-2025 07:47-0400 Diastolic blood pressure 71 mm[Hg] Dr. Daron Benton MD Work Phone: [facility] 08-05-2025 07:47-0400 Heart rate 48 /min Dr. Daron Benton MD Work Phone: [facility] 08-05-2025 07:47-0400 Respiratory rate 18 /min Dr. Daron Benton MD Work Phone: [facility] 08-05-2025 07:47-0400 SaO2% (BldA) [Mass fraction] 100 % Dr. Daron Benton MD Work Phone: [phone] [place] [address] 08-05-2025 07:47-0400 Systolic blood pressure 112 mm[Hg] Dr. Daron Benton MD Work Phone: [phone] [place] [address] 08-01-2025 00:36-0400 Body temperature 97.8 [degF] Dr. Daron Benton MD Work Phone: 4(614)279-898091 [place] [address] 08-01-2025 00:36-0400 Diastolic blood pressure 72 mm[Hg] Dr. Daron Benton MD Work Phone: 1(687)519-757991 [place] [address] 08-01-2025 00:36-0400 Heart rate 54 /min Dr. Daron Benton MD Work Phone: 8(356)993-374691 [place] [address] 08-01-2025 00:36-0400 Respiratory rate 14 /min Dr. Daron Benton MD Work Phone: 4(578)739-149291 [place] [address] 08-01-2025 00:36-0400 SaO2% (BldA) [Mass fraction] 95 % Dr. Daron Benton MD Work Phone: 7(264)265-939791 [place] [address] 08-01-2025 00:36-0400 Systolic blood pressure 135 mm[Hg] Dr. Daron Benton MD Work Phone: 7(208)613-924023 [place] [address] 07-31-2025 21:02-0400 Body height 165.[address] Daron Benton MD Work Phone: 7(047)247-056091 [place] [address] 07-31-2025 21:02-0400 Body mass index (BMI) [Ratio] 18.1 kg/m2 Dr. Daron Benton MD Work Phone: 1(031)555-959291 [place] [address] 07-31-2025 21:02-0400 Body weight 49.[address] Daron Benton MD Work Phone: [facility] 07-23-2025 12:31-0400 Body height 167.6 cm Lizz Lynn [employer] Work Phone: [facility] 07-23-2025 12:31-0400 Body mass index (BMI) [Ratio] 17.11 kg/m2 Lizz Lynn [employer] Work Phone: [facility] 07-23-2025 12:31-0400 Body weight 48.08 kg Lizz Lynn [employer] Work Phone: [facility] 07-23-2025 12:31-0400 Diastolic blood pressure 64 mm[Hg] Lizz Lynn [employer] Work Phone: [facility] 07-23-2025 12:31-0400 Heart rate 47 /min Lizz Lynn [employer] Work Phone: [facility] 07-23-2025 12:31-0400 Systolic blood pressure 103 mm[Hg] Lizz Lynn [employer] Work Phone: [facility] 07-23-2025 00:50-0400 Body temperature 98.2 [degF] Dr. Daron Benton MD Work Phone: [facility] 07-23-2025 00:50-0400 Diastolic blood pressure 74 mm[Hg] Dr. Daron Benton MD Work Phone: [facility] 07-23-2025 00:50-0400 Heart rate 70 /min Dr. Daron Benton MD Work Phone: [facility] 07-23-2025 00:50-0400 Respiratory rate 18 /min Dr. Daron Benton MD Work Phone: [facility] 07-23-2025 00:50-0400 SaO2% (BldA) [Mass fraction] 97 % Dr. Daron Benton MD Work Phone: [facility] 07-23-2025 00:50-0400 Systolic blood pressure 135 mm[Hg] Dr. Daron Benton MD Work Phone: 8(306)088-500891 [place] [address] 07-22-2025 21:56-0400 Body height 165.[address] Daron Benton MD Work Phone: 4(253)190-631491 [place] [address] 07-22-2025 21:56-0400 Body mass index (BMI) [Ratio] 18.1 kg/m2 Dr. Daron Benton MD Work Phone: 6(573)238-318691 [place] [address] 07-22-2025 21:56-0400 Body weight 49.[address] Daron Benton MD Work Phone: 0(803)707-633691 [place] [address] 07-05-2025 23:28-0400 Body temperature 98.6 [degF] Dr. Daron Benton MD Work Phone: 8(320)335-601491 [place] [address] 07-05-2025 23:28-0400 Diastolic blood pressure 99 mm[Hg] Dr. Daron Benton MD Work Phone: 0(803)266-875891 [place] [address] 07-05-2025 23:28-0400 Heart rate 76 /min Dr. Daron Benton MD Work Phone: 3(932)693-141491 [place] [address] 07-05-2025 23:28-0400 Respiratory rate 16 /min Dr. Daron Benton MD Work Phone: 7(005)729-300591 [place] [address] 07-05-2025 23:28-0400 SaO2% (BldA) [Mass fraction] 100 % Dr. Daron Benton MD Work Phone: 1(951)230-835991 [place] [address] 07-05-2025 23:28-0400 Systolic blood pressure 148 mm[Hg] Dr. Daron Benton MD Work Phone: 3(464)595-643291 [place] [address] 07-05-2025 20:54-0400 Body mass index (BMI) [Ratio] 18 kg/m2 Dr. Daron Benton MD Work Phone: 1(404)625-533091 [place] [address] 07-05-2025 20:54-0400 Body weight 49.[address] Daron Benton MD Work Phone: 5(546)153-170091 [place] [address] 07-05-2025 20:39-0400 Body height 165.[address] Daron Benton MD Work Phone: [facility] 06-09-2025 18:11-0400 Diastolic blood pressure 97 mm[Hg] Dr. Daron Benton MD Work Phone: 7(921)146-477591 [place] [address] 06-09-2025 18:11-0400 Systolic blood pressure 194 mm[Hg] Dr. Daron Benton MD Work Phone: 5(391)323-458791 [place] [address] 06-09-2025 16:33-0400 Body temperature 98 [degF] Dr. Daron Benton MD Work Phone: 5(413)426-617391 [place] [address] 06-09-2025 16:33-0400 Heart rate 70 /min Dr. Daron Benton MD Work Phone: 7(501)191-030991 [place] [address] 06-09-2025 16:33-0400 Respiratory rate 14 /min Dr. Daron Benton MD Work Phone: 0(640)158-938091 [place] [address] 06-09-2025 16:33-0400 SaO2% (BldA) [Mass fraction] 99 % Dr. Daron Benton MD Work Phone: 5(554)432-583591 [place] [address] 06-09-2025 08:15-0400 Inhaled oxygen flow rate 2 L/min Dr. Daron Benton MD Work Phone: 4(931)642-531091 [place] [address] 06-09-2025 05:43-0400 Body mass index (BMI) [Ratio] 18.1 kg/m2 Dr. Daron Benton MD Work Phone: 4(304)907-983691 [place] [address] 06-09-2025 05:43-0400 Body weight 49.[address] Daron Benton MD Work Phone: 9(144)231-611591 [place] [address] 06-07-2025 12:32-0400 Body height 165.[address] Daron Benton MD Work Phone: 1(074)762-919391 [place] [address] 06-03-2025 08:00-0400 Body temperature 96.8 [degF] Dr. Daron Benton MD Work Phone: 5(988)388-362991 [place] [address] 06-03-2025 08:00-0400 Diastolic blood pressure 62 mm[Hg] Dr. Daron Benton MD Work Phone: 8(233)152-063123 [place] [address] 06-03-2025 08:00-0400 Heart rate 82 /min Dr. Daron Benton MD Work Phone: 3(951)355-096991 [place] [address] 06-03-2025 08:00-0400 Respiratory rate 16 /min Dr. Daron Benton MD Work Phone: 4(501)734-253391 [place] [address] 06-03-2025 08:00-0400 SaO2% (BldA) [Mass fraction] 100 % Dr. Daron Benton MD Work Phone: 6(317)527-531391 [place] [address] 06-03-2025 08:00-0400 Systolic blood pressure 103 mm[Hg] Dr. Daron Benton MD Work Phone: 6(694)880-718991 [place] [address] 06-03-2025 07:37-0400 Inhaled oxygen flow rate 3 L/min Dr. Daron Benton MD Work Phone: 3(787)404-799691 [place] [address] 06-03-2025 02:30-0400 Body height 167.[address] Daron Benton MD Work Phone: 5(428)592-543291 [place] [address] 06-03-2025 02:30-0400 Body mass index (BMI) [Ratio] 17.7 kg/m2 Dr. Daron Benton MD Work Phone: 5(605)176-998191 [place] [address] 06-03-2025 02:30-0400 Body weight 49.[address] Daron Benton MD Work Phone: 1(892)000-157191 [place] [address] 05-19-2025 23:37-0400 Body temperature 97.8 [degF] Dr. Daron Benton MD Work Phone: 2(209)491-622691 [place] [address] 05-19-2025 23:37-0400 Diastolic blood pressure 61 mm[Hg] Dr. Daron Benton MD Work Phone: 9(034)681-419891 [place] [address] 05-19-2025 23:37-0400 Heart rate 75 /min Dr. Daron Benton MD Work Phone: 5(084)372-740591 [place] [address] 05-19-2025 23:37-0400 Respiratory rate 16 /min Dr. Daron Benton MD Work Phone: 8(058)207-145791 [place] [address] 05-19-2025 23:37-0400 SaO2% (BldA) [Mass fraction] 96 % Dr. Daron Benton MD Work Phone: 0(317)192-480791 [place] [address] 05-19-2025 23:37-0400 Systolic blood pressure 138 mm[Hg] Dr. Daron Benton MD Work Phone: 3(139)104-464991 [place] [address] 05-19-2025 22:26-0400 Body mass index (BMI) [Ratio] 17.8 kg/m2 Dr. Daron Benton MD Work Phone: 4(800)740-395591 [place] [address] 05-19-2025 22:26-0400 Body weight [address] Daron Benton MD Work Phone: 4(885)388-827791 [place] [address] 05-19-2025 20:46-0400 Body height 167.[address] Daron Benton MD Work Phone: 6(554)252-305791 [place] [address] 05-06-2025 14:44-0400 Body height 165.[address] Daron Benton MD Work Phone: 2(536)689-460791 [place] [address] 05-06-2025 14:44-0400 Body mass index (BMI) [Ratio] 18.3 kg/m2 Dr. Daron Benton MD Work Phone: 5(099)434-703491 [place] [address] 05-06-2025 14:44-0400 Body temperature 97.5 [degF] Dr. Daron Benton MD Work Phone: 3(832)149-713491 [place] [address] 05-06-2025 14:44-0400 Body weight 49.[address] Daron Benton MD Work Phone: 3(358)878-488191 [place] [address] 05-06-2025 14:44-0400 Diastolic blood pressure 79 mm[Hg] Dr. Daron Benton MD Work Phone: 0(167)604-332291 [place] [address] 05-06-2025 14:44-0400 Heart rate 74 /min Dr. Daron Benton MD Work Phone: 0(260)241-947591 [place] [address] 05-06-2025 14:44-0400 Respiratory rate 16 /min Dr. Daron Benton MD Work Phone: 8(452)692-725791 [place] [address] 05-06-2025 14:44-0400 SaO2% (BldA) [Mass fraction] 98 % Dr. Daron Benton MD Work Phone: 8(675)420-952723 [place] [address] 05-06-2025 14:44-0400 Systolic blood pressure 163 mm[Hg] Dr. Daron Benton MD Work Phone: 1(575)957-699691 [place] [address] 04-22-2025 14:14-0400 Body temperature 97.7 [degF] Dr. Daron Benton MD Work Phone: 4(155)504-286891 [place] [address] 04-22-2025 14:14-0400 Diastolic blood pressure 74 mm[Hg] Dr. Daron Benton MD Work Phone: 5(077)015-045091 [place] [address] 04-22-2025 14:14-0400 Heart rate 124 /min Dr. Daron Benton MD Work Phone: 5(574)591-134091 [place] [address] 04-22-2025 14:14-0400 Respiratory rate 18 /min Dr. Daron Benton MD Work Phone: 3(421)360-984791 [place] [address] 04-22-2025 14:14-0400 SaO2% (BldA) [Mass fraction] 94 % Dr. Daron Benton MD Work Phone: 3(140)903-541491 [place] [address] 04-22-2025 14:14-0400 Systolic blood pressure 101 mm[Hg] Dr. Daron Benton MD Work Phone: 1(822)069-539391 [place] [address] 04-21-2025 15:30-0400 Body height 165.[address] Daron Benton MD Work Phone: 1(678)722-036491 [place] [address] 04-21-2025 15:30-0400 Body mass index (BMI) [Ratio] 16.7 kg/m2 Dr. Daron Benton MD Work Phone: 1(452)816-789991 [place] [address] 04-21-2025 15:30-0400 Body weight 45.[address] Daron Benton MD Work Phone: 0(746)731-530091 [place] [address] 04-18-2025 21:23-0400 Body temperature 98.9 [degF] Dr. Daron Benton MD Work Phone: 9(249)487-944223 [place] [address] 04-18-2025 21:23-0400 Diastolic blood pressure 79 mm[Hg] Dr. Daron Benton MD Work Phone: 6(493)634-246723 [place] [address] 04-18-2025 21:23-0400 Heart rate 62 /min Dr. Daron Benton MD Work Phone: [facility] 04-18-2025 21:23-0400 Respiratory rate 21 /min Dr. Daron Benton MD Work Phone: 4(826)565-318023 [place] [address] 04-18-2025 21:23-0400 SaO2% (BldA) [Mass fraction] 100 % Dr. Daron Benton MD Work Phone: 7(457)412-858391 [place] [address] 04-18-2025 21:23-0400 Systolic blood pressure 141 mm[Hg] Dr. Daron Benton MD Work Phone: 8(039)416-167991 [place] [address] 04-18-2025 18:17-0400 Body height 165.[address] Daron Benton MD Work Phone: 1(895)593-471191 [place] [address] 04-18-2025 18:17-0400 Body mass index (BMI) [Ratio] 16.9 kg/m2 Dr. Daron Benton MD Work Phone: 1(163)798-961391 [place] [address] 04-18-2025 18:17-0400 Body weight 46.[address] Daron Benton MD Work Phone: 2(278)568-609691 [place] [address] 04-18-2025 01:13-0400 Body temperature 97.7 [degF] Dr. Daron Benton MD Work Phone: 9(369)468-361391 [place] [address] 04-18-2025 01:13-0400 Diastolic blood pressure 68 mm[Hg] Dr. Daron Benton MD Work Phone: 3(249)514-379791 [place] [address] 04-18-2025 01:13-0400 Heart rate 68 /min Dr. Daron Benton MD Work Phone: 9(353)781-726491 [place] [address] 04-18-2025 01:13-0400 Respiratory rate 16 /min Dr. Daron Benton MD Work Phone: 7(926)911-406399 [address] 04-18-2025 01:13-0400 SaO2% (BldA) [Mass fraction] 100 % Dr. Daron Benton MD Work Phone: 1(078)541-765523 [place] [address] 04-18-2025 01:13-0400 Systolic blood pressure 130 mm[Hg] Dr. Daron Benton MD Work Phone: 9(260)261-657291 [place] [address] 04-17-2025 22:17-0400 Body height 165.[address] Daron Benton MD Work Phone: 2(747)986-763691 [place] [address] 04-17-2025 22:17-0400 Body mass index (BMI) [Ratio] 16.9 kg/m2 Dr. Daron Benton MD Work Phone: 0(658)601-081591 [place] [address] 04-17-2025 22:17-0400 Body weight 46.[address] Daron Benton MD Work Phone: 3(803)071-792391 [place] [address] 04-11-2025 16:10-0400 Body temperature 97.6 [degF] Dr. Daron Benton MD Work Phone: 3(924)815-062591 [place] [address] 04-11-2025 16:10-0400 Diastolic blood pressure 67 mm[Hg] Dr. Daron Benton MD Work Phone: 1(909)044-233191 [place] [address] 04-11-2025 16:10-0400 Heart rate 56 /min Dr. Daron Benton MD Work Phone: 7(233)080-107291 [place] [address] 04-11-2025 16:10-0400 Respiratory rate 18 /min Dr. Daron Benton MD Work Phone: 9(680)733-952191 [place] [address] 04-11-2025 16:10-0400 SaO2% (BldA) [Mass fraction] 100 % Dr. Daron Benton MD Work Phone: 9(020)403-350991 [place] [address] 04-11-2025 16:10-0400 Systolic blood pressure 124 mm[Hg] Dr. Daron Benton MD Work Phone: 8(785)661-237891 [place] [address] 04-11-2025 13:17-0400 Body mass index (BMI) [Ratio] 19.1 kg/m2 Dr. Daron Benton MD Work Phone: 6(295)000-456291 [place] [address] 04-11-2025 13:17-0400 Body weight 52.[address] Daron Benton MD Work Phone: [facility] 04-08-2025 15:20-0400 Diastolic blood pressure 88 mm[Hg] Lizz Lynn [employer] - [employer] Work Phone: [facility] 04-08-2025 15:20-0400 Heart rate 70 /min Lizz Lynn [employer] RE[employer] - [employer] Work Phone: [facility] 04-08-2025 15:20-0400 Systolic blood pressure 151 mm[Hg] Lizz Lynn [employer] RE[employer] - [employer] Work Phone: [facility] 04-08-2025 14:15-0400 Body height 167.6 cm Lizz Lynn [employer] RE[employer] - [employer] Work Phone: [facility] 04-08-2025 14:15-0400 Body mass index (BMI) [Ratio] 17.53 kg/m2 Lizz Lynn [employer] RE[employer] - [employer] Work Phone: [facility] 04-08-2025 14:15-0400 Body weight 49.26 kg Lizz Lynn [employer] RE[employer] - [employer] Work Phone: [facility] 04-02-2025 22:25-0400 Body temperature 98.1 [degF] Dr. Daron Benton MD Work Phone: [facility] 04-02-2025 22:25-0400 Diastolic blood pressure 79 mm[Hg] Dr. Daron Benton MD Work Phone: [facility] 04-02-2025 22:25-0400 Heart rate 73 /min Dr. Daron Benton MD Work Phone: [facility] 04-02-2025 22:25-0400 Respiratory rate 18 /min Dr. Daron Benton MD Work Phone: [facility] 04-02-2025 22:25-0400 SaO2% (BldA) [Mass fraction] 100 % Dr. Daron Benton MD Work Phone: [facility] 04-02-2025 22:25-0400 Systolic blood pressure 105 mm[Hg] Dr. Daron Benton MD Work Phone: [facility] 04-02-2025 19:21-0400 Body height 165.[address] Daron Benton MD Work Phone: [facility] 04-02-2025 19:21-0400 Body mass index (BMI) [Ratio] 18.8 kg/m2 Dr. Daron Benton MD Work Phone: [facility] 04-02-2025 19:21-0400 Body weight 51.[address] Daron Benton MD Work Phone: [facility] 03-04-2025 10:31-0400 Body height 167.6 cm Lizz Lynn [employer] - [employer] Work Phone: [facility] 03-04-2025 10:31-0400 Body mass index (BMI) [Ratio] 18.34 kg/m2 Lizz Lynn [employer] - [employer] Work Phone: [facility] 03-04-2025 10:31-0400 Body weight 51.53 kg Lizz Lynn [employer] - [employer] Work Phone: [facility] 03-04-2025 10:31-0400 Diastolic blood pressure 75 mm[Hg] Lizz Lynn [employer] RE[employer]ER - [employer] Work Phone: [facility] 03-04-2025 10:31-0400 Heart rate 64 /min Lizz Lynn [employer] RE[employer] - [employer] Work Phone: [facility] 03-04-2025 10:31-0400 Systolic blood pressure 139 mm[Hg] Lizz Lynn [employer] RE[employer]ER - [employer] Work Phone: [facility] 02-20-2025 09:08-0400 Body mass index (BMI) [Ratio] 19.8 kg/m2 Dr. Daron Benton MD Work Phone: [facility] 02-20-2025 09:08-0400 Body weight 53.[address] Daron Benton MD Work Phone: [facility] 02-20-2025 09:08-0400 Diastolic blood pressure 74 mm[Hg] Dr. Daron Benton MD Work Phone: [facility] 02-20-2025 09:08-0400 Heart rate 50 /min Dr. Darno Benton MD Work Phone: 2(750)730-733723 [place] [address] 02-20-2025 09:08-0400 Respiratory rate 18 /min Dr. Daron Benton MD Work Phone: [facility] 02-20-2025 09:08-0400 SaO2% (BldA) [Mass fraction] 100 % Dr. Daron Benton MD Work Phone: 2(282)740-984799 [address] 02-20-2025 09:08-0400 Systolic blood pressure 121 mm[Hg] Dr. Daron Benton MD Work Phone: 0(362)875-562491 [place] [address] 01-13-2025 16:01-0500 Heart rate 59 /min Dr. Daron Benton MD Work Phone: 4(093)045-827199 [address] 01-13-2025 16:01-0500 Respiratory rate 16 /min Dr. Daron Benton MD Work Phone: 5(768)286-757999 [address] 01-13-2025 14:34-0500 Body temperature 98 [degF] Dr. Daron Benton MD Work Phone: 5(473)734-387791 [place] [address] 01-13-2025 14:34-0500 Diastolic blood pressure 95 mm[Hg] Dr. Daron Benton MD Work Phone: [facility] 01-13-2025 14:34-0500 Inhaled oxygen flow rate 2 L/min Dr. Daron Benton MD Work Phone: 3(443)871-243499 [address] 01-13-2025 14:34-0500 SaO2% (BldA) [Mass fraction] 94 % Dr. Daron Benton MD Work Phone: 5(907)712-476523 [place] [address] 01-13-2025 14:34-0500 Systolic blood pressure 111 mm[Hg] Dr. Daron Benton MD Work Phone: 4(070)830-145391 [place] [address] 01-13-2025 04:47-0500 Body mass index (BMI) [Ratio] 18.9 kg/m2 Dr. Daron Benton MD Work Phone: 7(941)906-473391 [place] [address] 01-13-2025 04:47-0500 Body weight 51.[address] Daron Benton MD Work Phone: 9(414)170-973391 [place] [address] 12-24-2024 10:03-0500 Body mass index (BMI) [Ratio] 19.4 kg/m2 Dr. Daron Benton MD Work Phone: 7(076)242-766891 [place] [address] 12-24-2024 10:03-0500 Body temperature 96.7 [degF] Dr. Daron Benton MD Work Phone: 4(312)922-015091 [place] [address] 12-24-2024 10:03-0500 Body weight 53.[address] Daron Benton MD Work Phone: 6(355)218-970691 [place] [address] 12-24-2024 10:03-0500 Diastolic blood pressure 77 mm[Hg] Dr. Daron Benton MD Work Phone: 2(750)153-539291 [place] [address] 12-24-2024 10:03-0500 Heart rate 69 /min Dr. Daron Benton MD Work Phone: 8(625)743-522391 [place] [address] 12-24-2024 10:03-0500 Respiratory rate 18 /min Dr. Daron Benton MD Work Phone: 8(928)185-650291 [place] [address] 12-24-2024 10:03-0500 SaO2% (BldA) [Mass fraction] 95 % Dr. Daron Benton MD Work Phone: 3(703)072-763399 [address] 12-24-2024 10:03-0500 Systolic blood pressure 132 mm[Hg] Dr. Daron Benton MD Work Phone: 7(200)197-166291 [place] [address] 12-19-2024 13:20-0500 Body mass index (BMI) [Ratio] 19.4 kg/m2 Dr. Daron Benton MD Work Phone: 0(300)031-279923 [place] [address] 12-19-2024 13:20-0500 Body weight 53.[address] Daron Benton MD Work Phone: [facility] 12-19-2024 13:20-0500 Diastolic blood pressure 77 mm[Hg] Dr. Daron Benton MD Work Phone: [facility] 12-19-2024 13:20-0500 Heart rate 67 /min Dr. Daron Benton MD Work Phone: 3(134)644-220623 [place] [address] 12-19-2024 13:20-0500 Respiratory rate 18 /min Dr. Daron Benton MD Work Phone: 9(867)782-159799 [address] 12-19-2024 13:20-0500 SaO2% (BldA) [Mass fraction] 96 % Dr. Daron Benton MD Work Phone: 2(522)257-822091 [place] [address] 12-19-2024 13:20-0500 Systolic blood pressure 124 mm[Hg] Dr. Daron Benton MD Work Phone: 3(824)498-742291 [place] [address] 12-17-2024 14:25-0500 Body temperature 97.8 [degF] Dr. Daron Benton MD Work Phone: 5(009)381-620391 [place] [address] 12-17-2024 14:25-0500 Diastolic blood pressure 94 mm[Hg] Dr. Daron Benton MD Work Phone: 7(625)382-397891 [place] [address] 12-17-2024 14:25-0500 Heart rate 65 /min Dr. Daron Benton MD Work Phone: 9(948)970-043723 [place] [address] 12-17-2024 14:25-0500 Respiratory rate 20 /min Dr. Daron Benton MD Work Phone: 3(054)580-557499 [address] 12-17-2024 14:25-0500 SaO2% (BldA) [Mass fraction] 95 % Dr. Daron Benton MD Work Phone: 6(760)051-015999 [address] 12-17-2024 14:25-0500 Systolic blood pressure 151 mm[Hg] Dr. Daron Benton MD Work Phone: 9(988)543-537199 [address] 12-17-2024 10:13-0500 Body mass index (BMI) [Ratio] 19.5 kg/m2 Dr. Daron Benton MD Work Phone: 4(328)285-690823 [place] [address] 12-17-2024 10:13-0500 Body weight 53.[address] Daron Benton MD Work Phone: 3(180)286-424291 [place] [address] 12-11-2024 13:50-0500 Body temperature 98 [degF] Dr. Daron Benton MD Work Phone: 4(930)707-286891 [place] [address] 12-11-2024 13:50-0500 Diastolic blood pressure 87 mm[Hg] Dr. Daron Benton MD Work Phone: 1(423)016-953791 [place] [address] 12-11-2024 13:50-0500 Heart rate 70 /min Dr. Daron Benton MD Work Phone: 2(853)591-692891 [place] [address] 12-11-2024 13:50-0500 Respiratory rate 16 /min Dr. Daron Benton MD Work Phone: 6(593)945-686291 [place] [address] 12-11-2024 13:50-0500 SaO2% (BldA) [Mass fraction] 96 % Dr. Daron Benton MD Work Phone: 8(631)578-165891 [place] [address] 12-11-2024 13:50-0500 Systolic blood pressure 139 mm[Hg] Dr. Daron Benton MD Work Phone: 2(806)776-498191 [place] [address] 12-10-2024 10:11-0500 Body weight 51.[address] Daron Benton MD Work Phone: 3(265)274-543591 [place] [address] 12-09-2024 18:00-0500 Inhaled oxygen flow rate 2 L/min Dr. Daron Benton MD Work Phone: 1(706)265-900691 [place] [address] 12-09-2024 14:59-0500 Body mass index (BMI) [Ratio] 18.8 kg/m2 Dr. Daron Benton MD Work Phone: 9(048)342-563191 [place] [address] 02-25-2024 17:00-0400 Body temperature 98.2 [degF] Dr. Daron Benton Work Phone: 2(819)764-543791 [place] [address] 02-25-2024 17:00-0400 Diastolic blood pressure 73 mm[Hg] Dr. Daron Benton Work Phone: 9(341)505-931091 [place] [address] 02-25-2024 17:00-0400 Heart rate 62 /min Dr. Daron Benton Work Phone: [facility] 02-25-2024 17:00-0400 Inhaled oxygen flow rate 2 L/min Dr. Daron Benton Work Phone: [facility] 02-25-2024 17:00-0400 Respiratory rate 16 /min Dr. Daron Benton Work Phone: [facility] 02-25-2024 17:00-0400 SaO2% (BldA) [Mass fraction] 98 % Dr. Daron Benton Work Phone: [facility] 02-25-2024 17:00-0400 Systolic blood pressure 136 mm[Hg] Dr. Daorn Benton Work Phone: [facility] 02-24-2024 23:41-0400 Body height 168 cm Dr. Daron Benton Work Phone: [facility] 02-24-2024 23:41-0400 Body mass index (BMI) [Ratio] 19.8 kg/m2 Dr. Daron Benton Work Phone: [facility] 02-24-2024 23:41-0400 Body weight 55.[address] Daron Benton Work Phone: [facility] 02-19-2024 16:00-0400 Body temperature 97.5 [degF] Dr. Daron Benton Work Phone: [facility] 02-19-2024 16:00-0400 Diastolic blood pressure 71 mm[Hg] Dr. Daron Benton Work Phone: [facility] 02-19-2024 16:00-0400 Heart rate 68 /min Dr. Daron Benton Work Phone: [facility] 02-19-2024 16:00-0400 Respiratory rate 17 /min Dr. Daron Benton Work Phone: [facility] 02-19-2024 16:00-0400 SaO2% (BldA) [Mass fraction] 92 % Dr. Daron Benton Work Phone: [facility] 02-19-2024 16:00-0400 Systolic blood pressure 124 mm[Hg] Dr. Daron Benton Work Phone: [facility] 02-19-2024 10:52-0400 Body height 167.[address] Daron Benton Work Phone: [facility] 02-19-2024 10:52-0400 Body mass index (BMI) [Ratio] 21.8 kg/m2 Dr. Daron Benton Work Phone: [facility] 02-19-2024 10:52-0400 Body weight 61.[address] Daron Benton Work Phone: [facility] 01-18-2024 11:47-0500 Body temperature 97.7 [degF] Dr. Daron Benton Work Phone: [facility] 01-18-2024 11:47-0500 Diastolic blood pressure 70 mm[Hg] Dr. Daron Benton Work Phone: [facility] 01-18-2024 11:47-0500 Heart rate 62 /min Dr. Daron Benton Work Phone: [facility] 01-18-2024 11:47-0500 Respiratory rate 18 /min Dr. Daron Benton Work Phone: [facility] 01-18-2024 11:47-0500 SaO2% (BldA) [Mass fraction] 95 % Dr. Daron Benton Work Phone: [facility] 01-18-2024 11:47-0500 Systolic blood pressure 121 mm[Hg] Dr. Daron Benton Work Phone: [facility] 01-18-2024 10:23-0500 Body height 165.[address] Daron Benton Work Phone: [facility] 01-18-2024 10:23-0500 Body mass index (BMI) [Ratio] 20.4 kg/m2 Dr. Daron Benton Work Phone: [facility] 01-18-2024 10:23-0500 Body weight 55.[address] Daron Benton Work Phone: [facility] 01-11-2024 08:22-0500 Diastolic blood pressure 57 mm[Hg] Dr. Daron Benton Work Phone: [facility] 01-11-2024 08:22-0500 Systolic blood pressure 132 mm[Hg] Dr. Daron Benton Work Phone: [facility] 01-11-2024 08:13-0500 Body temperature 98.5 [degF] Dr. Daron Benton Work Phone: [facility] 01-11-2024 08:13-0500 Heart rate 61 /min Dr. Daron Benton Work Phone: [facility] 01-11-2024 08:13-0500 Respiratory rate 16 /min Dr. Daron Benton Work Phone: [facility] 01-11-2024 08:13-0500 SaO2% (BldA) [Mass fraction] 98 % Dr. Daron Benton Work Phone: [facility] 01-11-2024 06:51-0500 Inhaled oxygen flow rate 2 L/min Dr. Daron Benton Work Phone: [facility] 01-11-2024 02:14-0500 Body height 165.[address] Daron Benton Work Phone: [facility] 01-11-2024 02:14-0500 Body mass index (BMI) [Ratio] 20.1 kg/m2 Dr. Daron Benton Work Phone: [facility] 01-11-2024 02:14-0500 Body weight [address] Daron Benton Work Phone: [facility] 12-21-2023 12:53-0500 Body mass index (BMI) [Ratio] 20.5 kg/m2 Dr. Daron Benton Work Phone: [facility] 12-21-2023 12:53-0500 Body weight 55.[address] Daron Benton Work Phone: [facility] 12-21-2023 12:53-0500 Diastolic blood pressure 89 mm[Hg] Dr. Daron Benton Work Phone: [facility] 12-21-2023 12:53-0500 Heart rate 50 /min Dr. Daron Benton Work Phone: [facility] 12-21-2023 12:53-0500 Respiratory rate 18 /min Dr. Daron Benton Work Phone: [facility] 12-21-2023 12:53-0500 SaO2% (BldA) [Mass fraction] 100 % Dr. Daron Benton Work Phone: [facility] 12-21-2023 12:53-0500 Systolic blood pressure 193 mm[Hg] Dr. Daron Benton Work Phone: [facility] 12-14-2023 13:43-0500 Body mass index (BMI) [Ratio] 19.37 kg/m2 Lizz Lynn [employer] Work Phone: [facility] 12-14-2023 13:43-0500 Body weight 54.43 kg Lizz Lynn [employer] REPA[employer]ER - [employer] Work Phone: [facility] 12-14-2023 13:43-0500 Diastolic blood pressure 78 mm[Hg] Lizz Lynn [employer] AND [employer] REPA[employer]ER - [employer] Work Phone: [facility] 12-14-2023 13:43-0500 Heart rate 66 /min Lizz Lynn [employer] REPA[employer]ER - [employer] Work Phone: [facility] 12-14-2023 13:43-0500 Systolic blood pressure 186 mm[Hg] Lizz Lynn [employer] AND [employer] REPAIRER - [employer] Work Phone: [facility] 12-07-2023 14:27-0500 Body temperature 97.4 [degF] Dr. Daron Benton Work Phone: [facility] 12-07-2023 14:27-0500 Diastolic blood pressure 79 mm[Hg] Dr. Daron Benton Work Phone: [facility] 12-07-2023 14:27-0500 Heart rate 50 /min Dr. Daron Benton Work Phone: [facility] 12-07-2023 14:27-0500 Respiratory rate 12 /min Dr. Daron Benton Work Phone: [facility] 12-07-2023 14:27-0500 SaO2% (BldA) [Mass fraction] 98 % Dr. Daron Benton Work Phone: [facility] 12-07-2023 14:27-0500 Systolic blood pressure 140 mm[Hg] Dr. Daron Benton Work Phone: [facility] 12-06-2023 16:45-0500 Body height 165.[address] Daron Benton Work Phone: [facility] 12-06-2023 16:45-0500 Body weight [address] Daron Benton Work Phone: 2(451)119-459123 [place] [address] 12-04-2023 07:00-0500 Inhaled oxygen flow rate 1 L/min Dr. Daron Benton Work Phone: [facility] 12-02-2023 12:37-0500 Body mass index (BMI) [Ratio] 20.5 kg/m2 Dr. Daron Benton Work Phone: [facility] 12-02-2023 11:40-0500 Diastolic blood pressure 48 mm[Hg] Dr. Daron Benton Work Phone: [facility] 12-02-2023 11:40-0500 Heart rate 48 /min Dr. Daron Benton Work Phone: [facility] 12-02-2023 11:40-0500 Respiratory rate 15 /min Dr. Daron Benton Work Phone: [facility] 12-02-2023 11:40-0500 SaO2% (BldA) [Mass fraction] 94 % Dr. Daron Benton Work Phone: [facility] 12-02-2023 11:40-0500 Systolic blood pressure 176 mm[Hg] Dr. Daron Benton Work Phone: [facility] 12-02-2023 06:33-0500 Body height 165.[address] Daron Benton Work Phone: [facility] 12-02-2023 06:33-0500 Body mass index (BMI) [Ratio] 20.5 kg/m2 Dr. Daron Bneton Work Phone: [facility] 12-02-2023 06:33-0500 Body temperature 97.6 [degF] Dr. Daron Benton Work Phone: [facility] 12-02-2023 06:33-0500 Body weight [address] Daron Benton Work Phone: 9(289)785-510923 [place] [address] 11-27-2023 12:32-0500 Body height 165.[address] Daron Benton Work Phone: [facility] 11-27-2023 09:46-0500 SaO2% (BldA) [Mass fraction] 96 % Dr. Daron Benton Work Phone: [facility] 11-27-2023 09:32-0500 Body temperature 98 [degF] Dr. Daron Benton Work Phone: [facility] 11-27-2023 09:32-0500 Diastolic blood pressure 97 mm[Hg] Dr. Daron Benton Work Phone: [facility] 11-27-2023 09:32-0500 Heart rate 52 /min Dr. Daron Benton Work Phone: [facility] 11-27-2023 09:32-0500 Respiratory rate 14 /min Dr. Daron Benton Work Phone: [facility] 11-27-2023 09:32-0500 Systolic blood pressure 196 mm[Hg] Dr. Daron Benton Work Phone: [facility] 11-27-2023 09:01-0500 Body mass index (BMI) [Ratio] 20 kg/m2 Dr. Daron Benton Work Phone: [facility] 11-27-2023 09:01-0500 Body weight 54.[address] Daron Benton Work Phone: [facility] 11-26-2023 15:22-0500 Diastolic blood pressure 81 mm[Hg] Dr. Daron Benton Work Phone: [facility] 11-26-2023 15:22-0500 Heart rate 69 /min Dr. Daron Benton Work Phone: [facility] 11-26-2023 15:22-0500 Respiratory rate 16 /min Dr. Daron Benton Work Phone: [facility] 11-26-2023 15:22-0500 SaO2% (BldA) [Mass fraction] 96 % Dr. Daron Benton Work Phone: [facility] 11-26-2023 15:22-0500 Systolic blood pressure 149 mm[Hg] Dr. Daron Benton Work Phone: [facility] 11-26-2023 12:47-0500 Body height 165.[address] Daron Benton Work Phone: [facility] 11-26-2023 12:47-0500 Body mass index (BMI) [Ratio] 20.2 kg/m2 Dr. Daron Benton Work Phone: [facility] 11-26-2023 12:47-0500 Body temperature 97 [degF] Dr. Daron Benton Work Phone: [facility] 11-26-2023 12:47-0500 Body weight 55.[address] Daron Benton Work Phone: [facility] 11-21-2023 11:50-0500 Body temperature 98.3 [degF] Dr. Daron Benton Work Phone: [facility] 11-21-2023 11:50-0500 Diastolic blood pressure 72 mm[Hg] Dr. Daron Benton Work Phone: [facility] 11-21-2023 11:50-0500 Heart rate 54 /min Dr. Daron Benton Work Phone: [facility] 11-21-2023 11:50-0500 Respiratory rate 16 /min Dr. Daron Benton Work Phone: [facility] 11-21-2023 11:50-0500 SaO2% (BldA) [Mass fraction] 94 % Dr. Daron Benton Work Phone: [facility] 11-21-2023 11:50-0500 Systolic blood pressure 134 mm[Hg] Dr. Daron Benton Work Phone: [facility] 11-21-2023 05:35-0500 Body mass index (BMI) [Ratio] 20.4 kg/m2 Dr. Daron Benton Work Phone: [facility] 11-21-2023 05:35-0500 Body weight 55.[address] Daron Benton Work Phone: [facility] 11-18-2023 15:44-0500 Body height 165.[address] Daron Benton Work Phone: [facility] 11-18-2023 15:18-0500 Body temperature 98.2 [degF] Dr. Daorn Benton Work Phone: [facility] 11-18-2023 15:18-0500 Diastolic blood pressure 75 mm[Hg] Dr. Daron Benton Work Phone: [facility] 11-18-2023 15:18-0500 Heart rate 72 /min Dr. Daron Benton Work Phone: [facility] 11-18-2023 15:18-0500 Respiratory rate 17 /min Dr. Daron Benton Work Phone: [facility] 11-18-2023 15:18-0500 SaO2% (BldA) [Mass fraction] 93 % Dr. Daron Benton Work Phone: [facility] 11-18-2023 15:18-0500 Systolic blood pressure 161 mm[Hg] Dr. Daron Benton Work Phone: [facility] 11-18-2023 11:43-0500 Body height 165.[address] Daron Benton Work Phone: [facility] 11-18-2023 11:43-0500 Body mass index (BMI) [Ratio] 20.9 kg/m2 Dr. Daron Benton Work Phone: [facility] 11-18-2023 11:43-0500 Body weight 57.[address] Daron Benton Work Phone: [facility] 11-16-2023 11:05-0500 Body height 165.[address] Daron Benton Work Phone: [facility] 11-16-2023 11:05-0500 Body weight 54.[address] Daron Benton Work Phone: [facility] 11-16-2023 09:53-0500 Heart rate 66 /min Dr. Daron Benton Work Phone: [facility] 11-16-2023 09:31-0500 Body temperature 97.7 [degF] Dr. Daron Benton Work Phone: [facility] 11-16-2023 09:31-0500 Diastolic blood pressure 71 mm[Hg] Dr. Daron Benton Work Phone: [facility] 11-16-2023 09:31-0500 Respiratory rate 16 /min Dr. Daron Benton Work Phone: [facility] 11-16-2023 09:31-0500 SaO2% (BldA) [Mass fraction] 96 % Dr. Daron Benton Work Phone: [facility] 11-16-2023 09:31-0500 Systolic blood pressure 138 mm[Hg] Dr. Daron Benton Work Phone: [facility] 11-16-2023 01:54-0500 Body mass index (BMI) [Ratio] 19.9 kg/m2 Dr. Daron Benton Work Phone: [facility] 11-15-2023 15:21-0500 Diastolic blood pressure 49 mm[Hg] Dr. Daron Benton Work Phone: [facility] 11-15-2023 15:21-0500 Heart rate 60 /min Dr. Daron Benton Work Phone: 0(189)241-150123 [place] [address] 11-15-2023 15:21-0500 Respiratory rate 18 /min Dr. Daron Benton Work Phone: 8(442)626-330699 [address] 11-15-2023 15:21-0500 SaO2% (BldA) [Mass fraction] 98 % Dr. Daron Benton Work Phone: 7(497)722-973999 [address] 11-15-2023 15:21-0500 Systolic blood pressure 119 mm[Hg] Dr. Daron Benton Work Phone: 8(643)312-779699 [address] 11-15-2023 13:28-0500 Body temperature 97.8 [degF] Dr. Daron Benton Work Phone: 3(136)884-953399 [address] 11-15-2023 11:22-0500 Body height 165.[address] Daron Benton Work Phone: 8(881)857-904291 [place] [address] 11-15-2023 11:22-0500 Body mass index (BMI) [Ratio] 21.3 kg/m2 Dr. Daron Benton Work Phone: 6(809)657-331699 [address] 11-15-2023 11:22-0500 Body weight 58.[address] Daron Benton Work Phone: 1(058)215-666823 [place] [address] 11-02-2023 13:04-0500 Body mass index (BMI) [Ratio] 20.5 kg/m2 Dr. Daron Benton Work Phone: 9(896)980-932699 [address] 11-02-2023 13:04-0500 Body weight 55.[address] Daron Benton Work Phone: 8(227)650-398599 [address] 11-02-2023 13:04-0500 Diastolic blood pressure 68 mm[Hg] Dr. Daron Benton Work Phone: [facility] 11-02-2023 13:04-0500 Heart rate 89 /min Dr. Daron Benton Work Phone: [facility] 11-02-2023 13:04-0500 Respiratory rate 18 /min Dr. Daron Benton Work Phone: [facility] 11-02-2023 13:04-0500 SaO2% (BldA) [Mass fraction] 100 % Dr. Daron Benton Work Phone: [facility] 11-02-2023 13:04-0500 Systolic blood pressure 109 mm[Hg] Dr. Daron Benton Work Phone: [facility] 10-05-2023 08:07-0500 Diastolic blood pressure 82 mm[Hg] Dr. Daron Benton Work Phone: [facility] 10-05-2023 08:07-0500 Respiratory rate 16 /min Dr. Daron Benton Work Phone: [facility] 10-05-2023 08:07-0500 SaO2% (BldA) [Mass fraction] 96 % Dr. Daron Benton Work Phone: [facility] 10-05-2023 08:07-0500 Systolic blood pressure 214 mm[Hg] Dr. Daron Benton Work Phone: [facility] 10-05-2023 00:43-0500 Body height 165.[address] Daron Benton Work Phone: [facility] 10-05-2023 00:43-0500 Body mass index (BMI) [Ratio] 21.7 kg/m2 Dr. Daron Benton Work Phone: [facility] 10-05-2023 00:43-0500 Body temperature 97.8 [degF] Dr. Daron Benton Work Phone: [facility] 10-05-2023 00:43-0500 Body weight 59.[address] Daron Benton Work Phone: [facility] 10-05-2023 00:43-0500 Heart rate 55 /min Dr. Daron Benton Work Phone: [facility] 05-24-2023 11:16-0400 Body weight 52.[address] Daron Benton Work Phone: [facility] 05-24-2023 11:16-0400 Diastolic blood pressure 86 mm[Hg] Dr. Daron Benton Work Phone: [facility] 05-24-2023 11:16-0400 Heart rate 56 /min Dr. Daron Benton Work Phone: [facility] 05-24-2023 11:16-0400 Respiratory rate 20 /min Dr. Daron Benton Work Phone: [facility] 05-24-2023 11:16-0400 Systolic blood pressure 120 mm[Hg] Dr. Daron Benton Work Phone: [facility] 05-24-2023 09:19-0400 Body height 165.[address] Daron Benton Work Phone: [facility] 04-08-2023 12:14-0400 Diastolic blood pressure 87 mm[Hg] Dr. Daron Benton Work Phone: [facility] 04-08-2023 12:14-0400 Heart rate 50 /min Dr. Daron Benton Work Phone: [facility] 04-08-2023 12:14-0400 Respiratory rate 12 /min Dr. Daron Benton Work Phone: [facility] 04-08-2023 12:14-0400 SaO2% (BldA) [Mass fraction] 98 % Dr. Daron Benton Work Phone: [facility] 04-08-2023 12:14-0400 Systolic blood pressure 162 mm[Hg] Dr. Daron Benton Work Phone: [facility] 04-08-2023 09:19-0400 Body height 165.[address] Daron Benton Work Phone: 9(692)794-553923 [place] [address] 04-08-2023 09:19-0400 Body mass index (BMI) [Ratio] 19.1 kg/m2 Dr. Daron Benton Work Phone: 5(547)258-955723 [place] [address] 04-08-2023 09:19-0400 Body temperature 97.5 [degF] Dr. Daron Benton Work Phone: 9(203)309-112091 [place] [address] 04-08-2023 09:19-0400 Body weight [address] Daron Benton Work Phone: 0(490)803-036391 [place] [address] 03-31-2023 15:10-0400 Diastolic blood pressure 82 mm[Hg] Dr. Daron Benton Work Phone: 1(628)593-937691 [place] [address] 03-31-2023 15:10-0400 Heart rate 45 /min Dr. Daron Benton Work Phone: 4(713)655-291091 [place] [address] 03-31-2023 15:10-0400 Respiratory rate 16 /min Dr. Daron Benton Work Phone: 5(501)836-365691 [place] [address] 03-31-2023 15:10-0400 SaO2% (BldA) [Mass fraction] 100 % Dr. Daron Benton Work Phone: 2(741)729-883191 [place] [address] 03-31-2023 15:10-0400 Systolic blood pressure 198 mm[Hg] Dr. Daron Benton Work Phone: 8(166)996-079991 [place] [address] 03-31-2023 12:40-0400 Body mass index (BMI) [Ratio] 19.5 kg/m2 Dr. Daron Benton Work Phone: 9(913)736-004091 [place] [address] 03-31-2023 12:40-0400 Body weight 53.[address] Daron Benton Work Phone: 6(655)961-490891 [place] [address] 03-31-2023 12:33-0400 Body height 165.[address] Daron Benton Work Phone: 5(275)333-489191 [place] [address] 03-31-2023 12:33-0400 Body temperature 96.9 [degF] Dr. Daron Benton Work Phone: 3(003)950-552091 [place] [address] 03-16-2023 12:26-0400 Body height 165.[address] Daron Benton Work Phone: [facility] 03-16-2023 12:26-0400 Body mass index (BMI) [Ratio] 19.1 kg/m2 Dr. Daron Benton Work Phone: [facility] 03-16-2023 12:26-0400 Body temperature 97.3 [degF] Dr. Daron Benton Work Phone: 5(395)006-025999 [address] 03-16-2023 12:26-0400 Body weight 52.[address] Daron Benton Work Phone: 7(593)996-571399 [address] 03-16-2023 12:26-0400 Diastolic blood pressure 85 mm[Hg] Dr. Daron Benton Work Phone: 2(409)062-866199 [address] 03-16-2023 12:26-0400 Heart rate 58 /min Dr. Daron Benton Work Phone: 0(395)419-479599 [address] 03-16-2023 12:26-0400 Respiratory rate 14 /min Dr. Daron Benton Work Phone: 7(270)874-793899 [address] 03-16-2023 12:26-0400 SaO2% (BldA) [Mass fraction] 100 % Dr. Daron Benton Work Phone: 4(377)705-459699 [address] 03-16-2023 12:26-0400 Systolic blood pressure 163 mm[Hg] Dr. Daron Benton Work Phone: 1(013)241-220723 [place] [address] 11-24-2022 18:46-0500 Body height 167.[address] Daron Benton Work Phone: 1(053)293-577923 [place] [address] 11-24-2022 18:46-0500 Body mass index (BMI) [Ratio] 19.3 kg/m2 Dr. Daron Benton Work Phone: 7(265)107-961899 [address] 11-24-2022 18:46-0500 Body temperature 97.2 [degF] Dr. Daron Benton Work Phone: 1(180)706-792123 [place] [address] 11-24-2022 18:46-0500 Body weight 54.[address] Daron Benton Work Phone: [facility] 11-24-2022 18:46-0500 Diastolic blood pressure 106 mm[Hg] Dr. Daron Benton Work Phone: [facility] 11-24-2022 18:46-0500 Heart rate 61 /min Dr. Daron Benton Work Phone: [facility] 11-24-2022 18:46-0500 Respiratory rate 18 /min Dr. Daron Benton Work Phone: [facility] 11-24-2022 18:46-0500 SaO2% (BldA) [Mass fraction] 100 % Dr. Daron Benton Work Phone: [facility] 11-24-2022 18:46-0500 Systolic blood pressure 159 mm[Hg] Dr. Daron Benton Work Phone: [facility] 11-09-2022 14:07-0500 Diastolic Blood Pressure Non-Invasive 66 1 TYE BARNETT MD [facility] 11-09-2022 14:07-0500 Heart rate 56 /min TYE BARNETT MD [facility] 11-09-2022 14:07-0500 Systolic Blood Pressure Non-Invasive 155 1 TYE BARNETT MD [facility] 11-09-2022 13:42-0500 Diastolic Blood Pressure Non-Invasive 69 1 TYE BARNETT MD [facility] 11-09-2022 13:42-0500 Heart rate 58 /min TYE BARNETT MD [facility] 11-09-2022 13:42-0500 Systolic Blood Pressure Non-Invasive 156 1 TYE BARNETT MD [facility] 11-09-2022 13:14-0500 Diastolic Blood Pressure Non-Invasive 86 1 TYE BARNETT MD [facility] 11-09-2022 13:14-0500 Heart rate 54 /min TYE BARNETT MD [facility] 11-09-2022 13:14-0500 Systolic Blood Pressure Non-Invasive 175 1 TYE BARNETT MD [facility] 11-09-2022 11:25-0500 Reason For Taking VItal Signs TYE BARNETT MD [facility] 11-09-2022 11:25-0500 Respiratory rate 16 /min TYE BARNETT MD [facility] 11-09-2022 11:03-0500 Respiratory rate 16 /min TYE BARNETT MD [facility] 11-09-2022 10:38-0500 Respiratory rate 16 /min TYE BARNETT MD [facility] 11-09-2022 06:29-0500 Blood Pressure Location TYE BARNETT MD [facility] 11-09-2022 06:29-0500 Body height 167.6 cm TYE BARNETT MD [facility] 11-09-2022 06:29-0500 Body temperature 97.7 [degF] TYE BARNETT MD [facility] 11-09-2022 06:29-0500 Body weight 54.8 kg TYE BARNETT MD [facility] 11-09-2022 06:29-0500 Body weight 19.51 kg/m2 TYE BARNETT MD [facility] 10-26-2022 13:20-0500 Body mass index (BMI) [Ratio] 19 kg/m2 Dr. Daron Benton Work Phone: [facility] 10-26-2022 13:20-0500 Body weight 53.[address] Daron Benton Work Phone: [facility] 10-26-2022 13:20-0500 Diastolic blood pressure 70 mm[Hg] Dr. Daron Benton Work Phone: [facility] 10-26-2022 13:20-0500 Heart rate 51 /min Dr. Daron Benton Work Phone: [facility] 10-26-2022 13:20-0500 Respiratory rate 18 /min Dr. Daron Benton Work Phone: [facility] 10-26-2022 13:20-0500 SaO2% (BldA) [Mass fraction] 100 % Dr. Daron Benton Work Phone: [facility] 10-26-2022 13:20-0500 Systolic blood pressure 129 mm[Hg] Dr. Daron Benton Work Phone: [facility] 05-16-2022 12:37-0400 Body height 167.[address] Daron Benton Work Phone: [facility] Work Phone: 05-16-2022 12:37-0400 Body mass index (BMI) [Ratio] 19.5 kg/m2 Dr. Daron Benton Work Phone: [facility] Work Phone: 05-16-2022 12:37-0400 Body weight 54.[address] Daron Benton Work Phone: [facility] Work Phone: 05-16-2022 12:37-0400 Diastolic blood pressure 75 mm[Hg] Dr. Daron Benton Work Phone: [facility] Work Phone: 05-16-2022 12:37-0400 Heart rate 57 /min Dr. Daron Benton Work Phone: [facility] Work Phone: 05-16-2022 12:37-0400 Respiratory rate 18 /min Dr. Daron Benton Work Phone: [facility] Work Phone: 05-16-2022 12:37-0400 SaO2% (BldA) [Mass fraction] 98 % Dr. Daron Benton Work Phone: [facility] Work Phone: 05-16-2022 12:37-0400 Systolic blood pressure 115 mm[Hg] Dr. Daron Benton Work Phone: [facility] Work Phone: 02-22-2022 10:52-0400 Body height 167.[address] Daron Benton Work Phone: [facility] Work Phone: 02-22-2022 10:52-0400 Body mass index (BMI) [Ratio] 20.1 kg/m2 Dr. Daron Benton Work Phone: [facility] Work Phone: 02-22-2022 10:52-0400 Body weight 56.[address] Daron Benton Work Phone: [facility] Work Phone: 02-22-2022 10:52-0400 Diastolic blood pressure 94 mm[Hg] Dr. Daron Benton Work Phone: [facility] Work Phone: 02-22-2022 10:52-0400 Heart rate 56 /min Dr. Daron Benton Work Phone: [facility] Work Phone: 02-22-2022 10:52-0400 Respiratory rate 18 /min Dr. Daron Benton Work Phone: [facility] Work Phone: 02-22-2022 10:52-0400 SaO2% (BldA) [Mass fraction] 96 % Dr. Daron Benton Work Phone: [facility] Work Phone: 02-22-2022 10:52-0400 Systolic blood pressure 169 mm[Hg] Dr. Daron Benton Work Phone: [facility] Work Phone: 02-20-2022 19:23-0400 Diastolic blood pressure 89 mm[Hg] Dr. Daron Benton Work Phone: [facility] Work Phone: 02-20-2022 19:23-0400 Heart rate 67 /min Dr. Daron Benton Work Phone: [facility] Work Phone: 02-20-2022 19:23-0400 Respiratory rate 15 /min Dr. Daron Benton Work Phone: [facility] Work Phone: 02-20-2022 19:23-0400 SaO2% (BldA) [Mass fraction] 97 % Dr. Daron Benton Work Phone: [facility] Work Phone: 02-20-2022 19:23-0400 Systolic blood pressure 172 mm[Hg] Dr. Daron Benton Work Phone: [facility] Work Phone: 02-20-2022 16:38-0400 Body mass index (BMI) [Ratio] 20.6 kg/m2 Dr. Daron Benton Work Phone: [facility] Work Phone: 02-20-2022 16:38-0400 Body temperature 96.5 [degF] Dr. Daron Benton Work Phone: [facility] Work Phone: 02-20-2022 16:38-0400 Body weight 58.[address] Daron Benton Work Phone: [facility] Work Phone: 02-18-2022 07:24-0400 Diastolic blood pressure 84 mm[Hg] Dr. Daron Benton Work Phone: [facility] Work Phone: 02-18-2022 07:24-0400 Heart rate 82 /min Dr. Daron Benton Work Phone: [facility] Work Phone: 02-18-2022 07:24-0400 Respiratory rate 16 /min Dr. Daron Benton Work Phone: [facility] Work Phone: 02-18-2022 07:24-0400 SaO2% (BldA) [Mass fraction] 98 % Dr. Daron Benton Work Phone: [facility] Work Phone: 02-18-2022 07:24-0400 Systolic blood pressure 145 mm[Hg] Dr. Daron Benton Work Phone: [facility] Work Phone: 02-18-2022 04:09-0400 Body height 167.[address] Daron Benton Work Phone: [facility] Work Phone: 02-18-2022 04:09-0400 Body mass index (BMI) [Ratio] 21.2 kg/m2 Dr. Daron Benton Work Phone: [facility] Work Phone: 02-18-2022 04:09-0400 Body temperature 97 [degF] Dr. Daron Benton Work Phone: [facility] Work Phone: 02-18-2022 04:09-0400 Body weight 59.[address] Daron Benton Work Phone: [facility] Work Phone: 02-17-2022 22:28-0400 Diastolic blood pressure 87 mm[Hg] Dr. Daron Benton Work Phone: [facility] Work Phone: 02-17-2022 22:28-0400 Heart rate 82 /min Dr. Daron Benton Work Phone: [facility] Work Phone: 02-17-2022 22:28-0400 Respiratory rate 15 /min Dr. Daron Benton Work Phone: [facility] Work Phone: 02-17-2022 22:28-0400 SaO2% (BldA) [Mass fraction] 98 % Dr. Daron Benton Work Phone: [facility] Work Phone: 02-17-2022 22:28-0400 Systolic blood pressure 145 mm[Hg] Dr. Daron Benton Work Phone: [facility] Work Phone: 02-17-2022 21:33-0400 Body height 167.[address] Daron Benton Work Phone: [facility] Work Phone: 02-17-2022 21:33-0400 Body mass index (BMI) [Ratio] 20.6 kg/m2 Dr. Daron Benton Work Phone: [facility] Work Phone: 02-17-2022 21:33-0400 Body temperature 98.1 [degF] Dr. Daron Benton Work Phone: [facility] Work Phone: 02-17-2022 21:33-0400 Body weight 58.[address] Daron Benton Work Phone: [facility] Work Phone: 02-14-2022 23:00-0400 Diastolic blood pressure 78 mm[Hg] Dr. Daron Benotn Work Phone: [facility] Work Phone: 02-14-2022 23:00-0400 Heart rate 78 /min Dr. Daron Benton Work Phone: [facility] Work Phone: 02-14-2022 23:00-0400 Respiratory rate 16 /min Dr. Daron Benton Work Phone: [facility] Work Phone: 02-14-2022 23:00-0400 SaO2% (BldA) [Mass fraction] 97 % Dr. Daron Benton Work Phone: [facility] Work Phone: 02-14-2022 23:00-0400 Systolic blood pressure 159 mm[Hg] Dr. aDron Benton Work Phone: [facility] Work Phone: 02-14-2022 15:46-0400 Body mass index (BMI) [Ratio] 22 kg/m2 Dr. Daron Benton Work Phone: [facility] Work Phone: 02-14-2022 15:46-0400 Body temperature 98.2 [degF] Dr. Daron Benton Work Phone: [facility] Work Phone: 02-14-2022 15:46-0400 Body weight 61.[address] Daron eBnton Work Phone: [facility] Work Phone: 02-08-2022 12:58-0400 Body mass index (BMI) [Ratio] 20.5 kg/m2 Dr. Daron Benton Work Phone: [facility] Work Phone: 02-08-2022 12:58-0400 Body weight 57.[address] Daron Benton Work Phone: [facility] Work Phone: 02-08-2022 12:58-0400 Diastolic blood pressure 76 mm[Hg] Dr. Daron Benton Work Phone: [facility] Work Phone: 02-08-2022 12:58-0400 Heart rate 51 /min Dr. Daron Benton Work Phone: [facility] Work Phone: 02-08-2022 12:58-0400 Respiratory rate 18 /min Dr. Daron Benton Work Phone: [facility] Work Phone: 02-08-2022 12:58-0400 SaO2% (BldA) [Mass fraction] 99 % Dr. Daron Benton Work Phone: [facility] Work Phone: 02-08-2022 12:58-0400 Systolic blood pressure 136 mm[Hg] Dr. Daron Benton Work Phone: [facility] Work Phone: 02-08-2022 12:58-0400 Body mass index (BMI) [Ratio] 20.5 kg/m2 Dr. Daron Benton Work Phone: [facility] Work Phone: 02-08-2022 12:58-0400 Body weight 57.[address] Daron Benton Work Phone: [facility] Work Phone: 02-08-2022 12:58-0400 Diastolic blood pressure 76 mm[Hg] Dr. Daron Benton Work Phone: [facility] Work Phone: 02-08-2022 12:58-0400 Heart rate 51 /min Dr. Daron Benton Work Phone: [facility] Work Phone: 02-08-2022 12:58-0400 Respiratory rate 18 /min Dr. Daron Benton Work Phone: [facility] Work Phone: 02-08-2022 12:58-0400 SaO2% (BldA) [Mass fraction] 99 % Dr. Daron Benton Work Phone: [facility] Work Phone: 02-08-2022 12:58-0400 Systolic blood pressure 136 mm[Hg] Dr. Daron Benton Work Phone: [facility] Work Phone: 01-23-2022 10:55-0500 Body mass index (BMI) [Ratio] 21 kg/m2 Dr. Daron Benton Work Phone: [facility] Work Phone: 01-23-2022 10:55-0500 Body temperature 97.3 [degF] Dr. Daron Benton Work Phone: [facility] Work Phone: 01-23-2022 10:55-0500 Body weight 59.[address] Daron Benton Work Phone: [facility] Work Phone: 01-23-2022 10:55-0500 Diastolic blood pressure 105 mm[Hg] Dr. Daron Benton Work Phone: [facility] Work Phone: 01-23-2022 10:55-0500 Heart rate 54 /min Dr. Daron Benton Work Phone: [facility] Work Phone: 01-23-2022 10:55-0500 Respiratory rate 16 /min Dr. Daron Benton Work Phone: [facility] Work Phone: 01-23-2022 10:55-0500 SaO2% (BldA) [Mass fraction] 96 % Dr. Daron Benton Work Phone: [facility] Work Phone: 01-23-2022 10:55-0500 Systolic blood pressure 194 mm[Hg] Dr. Daron Benton Work Phone: [facility] Work Phone: 01-23-2022 09:55-0500 Body mass index (BMI) [Ratio] 21 kg/m2 Dr. Daron Benton Work Phone: [facility] Work Phone: 01-23-2022 09:55-0500 Body temperature 97.3 [degF] Dr. Daron Benton Work Phone: [facility] Work Phone: 01-23-2022 09:55-0500 Body weight 59.[address] Daron Benton Work Phone: [facility] Work Phone: 01-23-2022 09:55-0500 Diastolic blood pressure 105 mm[Hg] Dr. Daron Benton Work Phone: [facility] Work Phone: 01-23-2022 09:55-0500 Heart rate 54 /min Dr. Daron Benton Work Phone: [facility] Work Phone: 01-23-2022 09:55-0500 Respiratory rate 16 /min Dr. Daron Benton Work Phone: [facility] Work Phone: 01-23-2022 09:55-0500 SaO2% (BldA) [Mass fraction] 96 % Dr. Daron Benton Work Phone: [facility] Work Phone: 01-23-2022 09:55-0500 Systolic blood pressure 194 mm[Hg] Dr. Daron Benton Work Phone: [facility] Work Phone: 01-18-2022 07:11-0500 Body weight 56.[address] Daron Benton Work Phone: [facility] Work Phone: 01-18-2022 06:11-0500 Body weight 56.[address] Daron Benton Work Phone: [facility] Work Phone: 01-17-2022 08:23-0500 Body mass index (BMI) [Ratio] 20.7 kg/m2 Dr. Daron Benton Work Phone: [facility] Work Phone: 01-17-2022 07:23-0500 Body mass index (BMI) [Ratio] 20.7 kg/m2 Dr. Daron Benton Work Phone: [facility] Work Phone: Encounters Encounter Date Encounter Type Care Provider Facility Start: 08-05-2025 End: 08-06-2025 Dr. Daron Benton MD Work Phone: -Emergency Department Work Phone: Start: 08-05-2025 End: 08-06-2025 Emergency department patient visit Dr. Daron Benton MD Work Phone: -Emergency Department Start: 08-05-2025 End: 08-05-2025 Betsey PEÑA -[facility] Work Phone: Start: 08-05-2025 End: 08-05-[address] Daron Benton MD Work Phone: -[facility] Start: 07-31-2025 End: 08-01-2025 Dr. Jeffy Willoughby MD -Emergency [facility] Work Phone: Start: 07-31-2025 End: 08-01-2025 Emergency department patient visit Jeffy Willoughby Facility:[facility] Start: 07-23-2025 End: 07-23-2025 Office outpatient visit 15 minutes Lizz Lynn APRN [facility] Work Phone: [facility] Comment on above: Multiple sclerosis ( HCC) Start: 07-23-2025 End: 07-23-2025 ambulatory [facility] Start: 07-22-2025 End: 07-23-2025 Dr. Draon Benton MD Work Phone: -Emergency Department Work Phone: Start: 07-22-2025 End: 07-23-2025 Emergency department patient visit Dr. Daron Benton MD Work Phone: -Emergency Department Start: 07-05-2025 End: 07-05-2025 Dr. Daron Benton MD Work Phone: -Emergency Department Work Phone: Start: 07-05-2025 End: 07-05-2025 Emergency department patient visit Dr. Daron Benton MD Work Phone: -Emergency Department Start: 06-25-2025 ambulatory Orlando Jacob Facility:[facility] Start: 06-24-2025 ambulatory Lucas CHAWLA Facility:[facility] Start: 06-24-2025 Lucas Ayala Emilee - Gaurav Start: 06-17-2025 ambulatory Lucas lopez DENTON Facility:[facility] Start: 06-17-2025 Lucas Ayala Emilee Nolasco Start: 06-16-2025 End: 06-16-[address] Daron Benton MD Work Phone: [facility] Start: 06-16-2025 End: 06-16-2025 Dr. Lucas Wyatt MD -[facility] Work Phone: Start: 06-12-2025 End: 06-12-[address] Daron Benton MD Work Phone: [facility] Start: 06-12-2025 End: 06-12-2025 Karen HAMMOND -[facility] Work Phone: Start: 06-10-2025 End: 06-10-[address] Daron Benton MD Work Phone: [facility] Start: 06-10-2025 End: 06-10-2025 [facility] Start: 06-09-2025 [facility] Start: 06-09-2025 Dr. Dex claros DO -[facility] Work Phone: Start: 06-08-2025 Dr. Dex claros DO [facility] Work Phone: Start: 06-07-2025 Dr. Roman Mckeon MD -[facility] Work Phone: Start: 06-06-2025 Dr. Roman Mckeon MD - [facility] Work Phone: Start: 06-05-2025 Kevin Gonzalez DO -[facility] Start: 06-05-2025 Dr. Roman Mckeon MD - [facility] Work Phone: Start: 06-04-2025 Kevin [place] DO -[facility] Start: 06-04-2025 Dr. Roman Mckeon MD -[facility] Work Phone: Start: 06-03-2025 Kevin [place] DO -[facility] Start: 06-03-2025 ambulatory Kevindavid Gonzalez [facility] Start: 06-03-2025 End: 06-09-2025 Evaluation and management of inpatient Dr. Daron Benton MD Work Phone: -Progressive Care Unit Start: 06-03-2025 End: 06-09-2025 Dr. Roman Mckeon MD -[facility] Un it Work Phone: Start: 05-20-2025 End: 05-20-[address] Daron Benton MD Work Phone: [facility] Start: 05-20-2025 End: 05-20-2025 Lizz Lynn MULTI TOWNSHIP ASSESSOR-C -[facility] Work Phone: Start: 05-20-2025 End: 05-20-2025 ambulatory Lizz Lynn Facility:[facility] Start: 05-19-2025 End: 05-19-2025 Dr. Daron Benton MD Work Phone: -Emergency Department Work Phone: Start: 05-19-2025 End: 05-19-2025 Emergency department patient visit Dr. Daron Benton MD Work Phone: -Emergency Department Start: 05-15-2025 End: 05-15-[address] Daron Benton MD Work Phone: -[facility] Start: 05-15-2025 End: 05-15-2025 Dr. Tye Barnett MD -[facility] Work Phone: Start: 05-15-2025 End: 05-15-2025 ambulatory Tye Barnett Facility:[facility] Start: 05-06-2025 End: 05-06-2025 Iona HAMMOND -[facility] Work Phone: Start: 05-06-2025 End: 05-06-[address] Daron Benton MD Work Phone: [facility] Work Phone: Start: 05-05-2025 End: 05-06-2025 Telephone encounter Lizz Lynn WATCH AND CLOCK REPAIRER - COLORS CUSTODIAN Work Phone: [facility] Comment on above: Prior Authorization Start: 04-28-2025 ambulatory Daron Benton Facility:[facility] Start: 04-24-2025 End: 04-24-2025 Telephone encounter Lizz Lynn WATCH AND CLOCK REPAIRER - COLORS CUSTODIAN Work Phone: [facility] Comment on above: Med Refill (Baclofen ) Start: 04-22-2025 Kevin [place] DO -[facility] Start: 04-22-2025 Dr. Roman Mckeon MD - [facility] Work Phone: Start: 04-21-2025 Kevin [place] DO -[facility] Start: 04-21-2025 Dr. Sommer archibald MD -[facility] Work Phone: Start: 04-20-2025 [facility] DO -[facility] Start: 04-20-2025 Dr. Roman Mckeon MD - [facility] Work Phone: Start: 04-19-2025 Dr. Roman Mckeon MD - [facility] Work Phone: Start: 04-18-2025 [...] End: 04-11-2025 Dr. [facility] Start: 04-11-2025 End: 04-11-2025 Emergency department patient visit Dr. Ramírez Onofre MD -Emergency Department Work Phone: Start: 04-08-2025 End: 04-08-2025 [facility] Work Phone: [facility] Comment on above: Multiple sclerosis ( HCC) (Primary Dx); Dysphasia Start: 04-08-2025 End: 04-08-2025 ambulatory [facility] Start: 04-02-2025 End: 04-02-2025 Dr. Daron Benton MD Work Phone: -Emergency Department Work Phone: Start: 04-02-2025 End: 04-02-2025 Emergency department patient visit Dr. Daron Benton MD Work Phone: [facility] Work Phone: Start: 03-19-2025 ambulatory Orlando Jacob Facility:[facility] Start: 03-19-2025 Non-patient / Non-visit [facility]. Ch[place] FOX [facility] Start: 03-19-2025 End: 03-19-[address] Orlando Jacob MD -Cardiovascular Services Work Phone: Start: 03-19-2025 End: 03-19-2025 Dr. Orlando Jacob MD -[facility] Start: 03-19-2025 End: 03-19-2025 ambulatory Orlando Jacob Facility:[facility] Start: 03-09-2025 End: 03-09-2025 Telephone encounter Lizz Robert WATCH AND CLOCK REPAIRER - COLORS CUSTODIAN Work Phone: [facility] Clinical Communication Comment on above: Orders (MRI order) Start: 03-04-2025 End: 03-04-2025 Office outpatient visit 15 minutes Lizzdanielle Lynn WATCH AND CLOCK REPAIRER - COLORS CUSTODIAN Work Phone: [facility] Comment on above: Multiple sclerosis ( HCC) (Primary Dx); Mild cognitive impairment; Fatigue, unspecified type; Deficiency of multiple nutrient elements Start: 03-04-2025 End: 03-04-2025 ambulatory [facility] Start: 02-20-2025 End: 02-20-2025 Patient encounter procedure Betsey PEÑA -[facility] Work Phone: Start: 02-20-2025 End: 02-20-2025 Betsey PEÑA -[facility] Work Phone: Start: 02-20-2025 End: 02-20-2025 ambulatory Betsey PEÑA Facility[facility] Start: 01-15-2025 End: 01-15-[address] Daron Benton MD -[facility] [place] Work Phone: Start: 01-15-2025 End: 01-15-2025 Dr. Daron Benton MD -[facility] [place] Work Phone: Start: 01-15-2025 End: 01-15-2025 ambulatory Daron Benton Facility:[facility] Start: 01-13-2025 Non-patient / Non-visit Dr. Damian Worrell [facility] Work Phone: Start: 01-13-2025 Dr. Dex claros [facility] Work Phone: Start: 01-12-2025 Non-patient / Non-visit Dr. Damian Worrell [facility] Work Phone: Start: 01-12-2025 Dr. Dex claros [facility] Work Phone: Start: 01-12-2025 Non-patient / Non-visit Dr. Rafaela Smiley MD [facility] Start: 01-12-2025 Dr. Bhavik blevins MD [facility] Start: 01-12-2025 [facility] Start: 01-12-2025 Non-patient / Non-visit Dr. Kacie Weiner MD [facility] Start: 01-12-2025 Dr. Kofi Weiner MD [facility] Start: 01-11-2025 Non-patient / Non-visit Dr. Kacie Watson MD [facility] Work Phone: Start: 01-11-2025 Dr. Neha simpson [facility] Work Phone: Start: 01-11-2025 Non-patient / Non-visit Dr. Carlos A olea MD [facility] Start: 01-11-2025 Dr. Carlos A Parikh MD [facility] Start: 01-10-2025 ambulatory Sommer Resendiz Facility :[facility] Start: 01-10-2025 End: 01-13-2025 Evaluation and management of inpatient Dr. Dex Worrell DO [facility] Work Phone: Start: 01-10-2025 End: 01-13-2025 Dr. Dex Worrell DO [facility] Work Phone: Start: 12-24-2024 End: 12-24-2024 Patient encounter procedure MULTI TOWNSHIP ASSESSOR Negar Mckeon [facility] Work Phone: Start: 12-24-2024 End: 12-24-[address] [facility] Work Phone: Start: 12-24-2024 End: 12-24-2024 ambulatory Daron Benton Facility:[facility] Start: 12-19-2024 End: 12-19-2024 Patient encounter procedure Betsey PEÑA -[facility] Work Phone: Start: 12-19-2024 End: 12-19-2024 Betesy PEÑA -[place] [facility] Work Phone: Start: 12-19-2024 End: 12-19-2024 ambulatory Betsey PEÑA Facility:[facility] Start: 12-17-2024 End: 12-17-2024 Dr. [facility] Work [facility] Start: 12-17-2024 End: 12-17-2024 Emergency department patient visit Daron Benton Facility:[facility] Start: 12-11-2024 Dr. Neha simpson MD -[facility] Work Phone: Start: 12-10-2024 Dr. Neha simpson MD -[facility] [place] [facility] Work Phone: Start: 12-10-2024 Dr. Kofi Weiner MD -[facility] Start: 12-09-2024 End: 12-11-2024 ambulatory Neha Watson Facility:[facility] Start: 12-09-2024 End: 12-11-2024 Dr. Neha Watson MD -Progressive Care Unit Work Phone: Start: 11-28-2024 End: 11-28-2024 Emergency department patient visit Daron Benton Facility:[facility] Start: 11-24-2024 End: 11-24-2024 ambulatory Daron Benton Facility:[facility] Start: 11-20-2024 End: 11-20-2024 Ankit Lynn APRN - COL[employer] CUSTODIAN Work Phone: [facility] Comment on above: Multiple sclerosis ( HCC) Start: 10-08-2024 End: 10-08-2024 ambulatory Daron Benton Facility:[facility] Start: 10-06-2024 ambulatory Jorge Hurtado Facility:[facility] Start: 10-03-2024 End: 10-03-2024 ambulatory Jorge Brown Facility:[facility] Start: 10-01-2024 End: 10-01-2024 ambulatory Jorge Brown Facility:[facility] Start: 09-14-2024 End: 09-15-2024 Ankit Oleary Israel WATCH AND CLOCK REPAIRER - COL[employer] CUSTODIAN Work Phone: [facility] Comment on above: Multiple sclerosis ( HCC) Start: 08-27-2024 End: 08-27-2024 ambulatory Tye Barnett Facility:[facility] Start: 08-25-2024 End: 08-25-2024 ambulatory Jorge Brown Facility:[facility] Start: 08-21-2024 End: 08-21-2024 ambulatory Jorge Brown Facility:[facility] Start: 08-14-2024 End: 08-14-2024 ambulatory Daron Benton Facility:[facility] Start: 02-29-2024 End: 02-29-[address] Daron Benton Work Phone: [facility] Work Phone: Start: 02-29-2024 End: 02-29-2024 Dr. Daron Benton Work Phone: [facility] Start: 02-25-2024 Dr. aDron Benton Work Phone: [facility] Work Phone: Start: 02-25-2024 Dr. Daron Benton Work Phone: [facility] Start: 02-24-2024 Dr. Daron Benton Work Phone: [facility] Work Phone: Start: 02-24-2024 End: 02-24-2024 Dr. Daron Benton Work Phone: [facility] Work Phone: Start: 02-23-2024 End: 02-23-2024 Dr. Daron Benton Work Phone: [facility] Work Phone: Start: 02-23-2024 Dr. Daron Benton Work Phone: [facility] Start: 02-23-2024 Dr. Daron Benton Work Phone: [facility] Work Phone: Start: 02-22-2024 Dr. Daron Benton Work Phone: [facility] Start: 02-22-2024 Dr. Daron Benton Work Phone: [facility] Work Phone: Start: 02-21-2024 Dr. Daron Benton Work Phone: [facility] Start: 02-21-2024 Dr. Daron Benton Work Phone: [facility] Work Phone: Start: 02-20-2024 Dr. Daron Benton Work Phone: [facility] Work Phone: Start: 02-19-2024 Dr. Daron Benton Work Phone: [facility] Start: 02-19-2024 End: 02-25-2024 Evaluation and management of inpatient Dr. Daron Benton Work Phone: [facility] Work Phone: Start: 02-19-2024 End: 02-25-2024 Dr. Daron Benton Work Phone: [facility] Work Phone: Start: 02-11-2024 Ankit Main MD Work Phone: [facility] Comment on above: Multiple sclerosis ( HCC) Start: 01-18-2024 End: 01-18-2024 Emergency department patient visit Dr. Daron Benton Work Phone: [facility] Work Phone: Start: 01-18-2024 End: 01-18-2024 Dr. Daron Benton Work Phone: [facility]-Emergency Department Work Phone: Start: 01-18-2024 End: 01-18-[address] Daron Benton Work Phone: [facility] Work Phone: Start: 01-18-2024 End: 01-18-2024 Dr. Daron Benton [facility] Start: 01-11-2024 End: 01-11-2024 Emergency department patient visit Dr. Daron Benton Work Phone: [facility] Work Phone: Start: 01-11-2024 End: 01-11-2024 Dr. Daron Benton Work Phone: [facility]-Emergency Department Work Phone: Start: 01-08-2024 Dr. Daron Benton Work Phone: [facility]-Physical Therapy Work Phone: Start: 12-21-2023 End: 12-21-2023 Dr. Daron Benton Work Phone: [facility]-Laboratory Work Phone: Start: 12-21-2023 End: 12-21-2023 Dr. Daron Benton Work Phone: [facility] Work Phone: Start: 12-14-2023 End: 12-14-2023 Office outpatient visit 40 minutes Lizz Lynn APRN - COLORS CUSTODIAN Work Phone: [facility] Comment on above: Multiple sclerosis ( HCC) (Primary Dx); Dizziness; Imbalance; Vision disturbance Start: 12-07-2023 Dr. Daron Benton Work Phone: [facility] Work Phone: Start: 12-06-2023 Dr. Daron Benton Work Phone: [facility] Work Phone: Start: 12-05-2023 Dr. Daron Benton Work Phone: [facility] Work Phone: Start: 12-05-2023 Dr. Daron Benton Work Phone: [facility] Start: 12-04-2023 Dr. Daron Benton Work Phone: [facility] Work Phone: Start: 12-04-2023 Dr. Daron Benton Work Phone: [facility] Start: 12-03-2023 Dr. Daron Benton Work Phone: [facility] Work Phone: Start: 12-02-2023 End: 12-07-2023 Evaluation and management of inpatient Dr. Daron Benton Work Phone: [facility] Work Phone: Start: 12-02-2023 End: 12-07-2023 Dr. Daron Benton Work Phone: [facility] Work Phone: Start: 11-27-2023 End: 11-27-2023 Emergency department patient visit Dr. Daron Benton Work Phone: [facility]Emergency Department Work Phone: Start: 11-27-2023 End: 11-27-2023 Dr. Daron Benton Work Phone: [facility]Emergency Department Work Phone: Start: 11-26-2023 End: 11-26-2023 Emergency department patient visit Dr. Daron Benton Work Phone: [facility]Emergency Department Work Phone: Start: 11-26-2023 End: 11-26-2023 Dr. Daron Benton Work Phone: [facility]Emergency Department Work Phone: Start: 11-21-2023 Non-patient / Non-visit Dr. Sarah Benton Work Phone: [facility] Work Phone: Start: 11-21-2023 Dr. Daron Benton Work Phone: [facility] Work Phone: Start: 11-20-2023 Non-patient / Non-visit Dr. Sarah Benton Work Phone: [facility] Work Phone: Start: 11-20-2023 Dr. Daron Benton Work Phone: [facility] Work Phone: Start: 11-19-2023 Non-patient / Non-visit Dr. Sarah Benton Work Phone: [facility] Start: 11-19-2023 Dr. Daron Benton Work Phone: [facility] Start: 11-18-2023 End: 11-21-2023 Evaluation and management of inpatient [facility]. Daron Benton [facility] Phone[facility] Work Phone: Start: 11-18-2023 End: 11-21-2023 Dr. Daron Benton [facility] Phone: [facility] Work Phone: Start: 11-16-2023 Non-patient / Non-visit Dr. Sarah Benton Work Phone: [facility] Work Phone: Start: 11-16-2023 Dr. Daron Benton Work Phone: [facility] Work Phone: Start: 11-15-2023 End: 11-16-2023 Evaluation and management of inpatient Dr. Daron Benton Work Phone: [facility] Work Phone: Start: 11-15-2023 End: 11-16-2023 Dr. Daron Benton Work Phone: [facility] Work Phone: Start: 11-02-2023 End: 11-02-[address] Daron Benton Work Phone: [facility] Work Phone: Start: 11-02-2023 End: 11-02-2023 Dr. Daron Benton Work Phone: [facility] Work Phone: Start: 10-26-2023 End: 10-26-2023 ambulatory TYE BARNETT MD Facility:A Start: 10-22-2023 End: 10-22-[address] Daron Benton Work Phone: [facility] Work Phone: Start: 10-22-2023 End: 10-22-[address] Daron Benton Work Phone: [facility]-Laboratory, Specimen Work Phone: Start: 10-22-2023 End: 10-22-2023 Dr. Daron Benton Work Phone: [facility]-Laboratory, Specimen Work Phone: Start: 10-22-2023 End: 10-22-[address] Daron Benton Work Phone: [facility] Work Phone: Start: 10-22-2023 End: 10-22-2023 Dr. Daron Benton Work Phone: [facility] Work Phone: Start: 10-05-2023 End: 10-05-2023 Office outpatient visit 40 minutes Kristopher Main MD Work Phone: [facility] Comment on above: Multiple sclerosis ( HCC) (Primary Dx); Cerebrovascular disease, unspecified; Primary hypertension Start: 10-05-2023 Telephone encounter Kristopher baez MD Work Phone: [facility] Comment on above: Orders Start: 10-05-2023 End: 10-05-2023 Emergency department patient visit Dr. Daron Benton Work Phone: [facility]-Emergency Department Work Phone: Start: 10-05-2023 End: 10-05-2023 Dr. Daron Benton Work Phone: [facility]-Emergency Department Work Phone: Start: 09-04-2023 End: 09-04-[address] Daron Benton Work Phone: [facility] Work Phone: Start: 09-04-2023 End: 09-04-2023 Dr. Daron Benton Work Phone: [facility] Work Phone: Start: 09-04-2023 End: 09-04-[address] aDron Benton Work Phone: [facility] Work Phone: Start: 09-04-2023 End: 09-04-[address] [facility] Benton [facility] Work Phone: Start: 09-04-2023 End: 09-04-2023 Dr. Daron Benton [facility]: [facility] Work [facility]: Start: 08-21-2023 End: 08-21-[address] Daron Benton Work Phone: [facility] Start: 08-21-2023 End: 08-21-2023 Dr. Daron Benton Work Phone: [facility] Start: 07-26-2023 End: 07-26-[address] Daron Benton Work Phone: [facility] Work Phone: Start: 07-26-2023 End: 07-26-[address] Daron Benton [facility]: [facility] Work [facility]: Start: 06-15-2023 Refill Kristopher Main MD Work Phone: [facility] Comment on above: Multiple sclerosis ( HCC) Start: 06-04-2023 Telephone encounter Kristopher baez MD Work Phone: [facility] Comment on above: Med Refill Start: 05-24-2023 End: 05-24-[address] Daron Benton Work Phone: [facility] Work Phone: Start: 05-10-2023 Refill Kristopher Main MD Work Phone: [facility] Start: 04-26-2023 End: 04-26-[address] Daron Benton Work Phone: [facility] Work Phone: Start: 04-26-2023 End: 04-26-[address] Daron Benton Work Phone: [facility] Start: 04-25-2023 End: 04-25-[address] Daron Benton Work Phone: [facility] Start: 04-14-2023 End: 04-14-[address] Daron Benton Work Phone: [facility] Work Phone: Start: 04-14-2023 End: 04-14-[address] Daron Benton Work Phone: [facility] Start: 04-10-2023 End: 04-10-[address] Daron Benton Work Phone: [facility] Work Phone: Start: 04-10-2023 End: 04-10-[address] D[facility] Benton [facility] Start: 04-08-2023 End: 04-08-2023 Emergency department patient visit Dr. Daron Benton Work Phone: [facility]-Emergency Department Start: 04-02-2023 End: 04-02-[address] Daron Benton Work Phone: [facility] Start: 03-31-2023 End: 03-31-2023 Emergency department patient visit Dr. Daron Benton Work Phone: [facility]-Emergency Department Start: 03-20-2023 End: 03-20-[address] Daron Benton Work Phone: [facility] Work Phone: Start: 03-20-2023 End: 03-20-[address] Daron Benton Work Phone: [facility] Start: 03-16-2023 End: 03-16-2023 Emergency department patient visit Dr. Daron Benton Work Phone: [facility]-Emergency Department Start: 02-01-2023 End: 02-01-[address] Daron Benton Work Phone: [facility] Work Phone: Start: 02-01-2023 End: 02-01-[address] Daron Benton Work Phone: [facility]-Outpatient Bone Densitometry Start: 01-22-2023 End: 01-22-[address] Daron Benton Work Phone: [facility] Start: 12-27-2022 End: 12-27-[address] Daron Benton Work Phone: [facility] Start: 12-20-2022 End: 12-20-[address] Daron Benton Work Phone: [facility] Start: 12-13-2022 End: 12-13-[address] Daron Benton Work Phone: [facility] Start: 12-04-2022 End: 12-04-[address] Daron Benton Work Phone: [facility] Start: 11-24-2022 End: 11-24-2022 Emergency department patient visit Dr. Daron Benton Work Phone: [facility]-Emergency Department Start: 11-21-2022 Non-patient / Non-visit Dr. Sarah Benton Work Phone: [facility] Start: 11-21-2022 End: 11-21-[address] Daron Benton Work Phone: [facility] Work Phone: Start: 11-21-2022 End: 11-21-[address] Daron Benton Work Phone: [facility]-Cardiovascular Services Start: 11-09-2022 End: 11-09-2022 SAME DAY STAY TYE BARNETT MD [facility] Start: 10-26-2022 End: 10-26-[address] Daron Benton Work Phone: [facility] Start: 10-20-2022 End: 10-20-[address] Daron Benton Work Phone: [facility] Start: 10-09-2022 End: 10-09-[address] Daron Benton Work Phone: [facility] Start: 09-26-2022 End: 09-26-2022 ambulatory [facility] Work Phone: Start: 09-26-2022 End: 09-26-2022 [facility] Start: 09-03-2022 Transcribe Orders Kristopher olson MD Work Phone: [facility] [place] Comment on above: Other specified symp toms and signs involving the circulatory and respiratory systems (Primary Dx); Cerebrovascular disease, unspecified Start: 08-23-2022 End: 08-23-[address] Daron Benton Work Phone: [facility] Work Phone: Start: 08-23-2022 End: 08-23-[address] Daron Benton Work Phone: [facility]-Cardiovascular Services Start: 05-16-2022 End: 05-16-[address] Daron Benton Work Phone: [facility] Start: 05-02-2022 End: 05-02-[address] Daron Benton Work Phone: [facility] Start: 02-22-2022 End: 02-22-[address] Daron Benton Work Phone: [facility] Start: 02-20-2022 End: 02-20-2022 Emergency department patient visit Dr. Daron Benton Work Phone: [facility]-Emergency Department Start: 02-18-2022 End: 02-18-2022 Emergency department patient visit Dr. Daron Benton Work Phone: [facility]-Emergency Department Start: 02-17-2022 End: 02-17-2022 Emergency department patient visit Dr. Daron Benton Work Phone: [facility]-Emergency Department Start: 02-14-2022 End: 02-14-2022 Emergency department patient visit Dr. Daron Benton Work Phone: [facility]-Emergency Department Start: 02-08-2022 End: 02-08-[address] Daron Benton Work Phone: [facility] Start: 01-23-2022 End: 01-23-2022 Emergency department patient visit Dr. Daron Benton Work Phone: [facility]-Emergency Department Start: 01-18-2022 End: 01-18-2022 Admission to same day surgery center Dr. Daron Benton Work Phone: [facility]-Base Cloth Inspector/Special Procedures Start: 11-17-[address] Daron Benton Work Phone: [facility] Start: 10-21-2021 End: 10-21-[address] Daron Benton Work Phone: [facility] Start: 08-11-[address] Daron Benton Work Phone: [facility] Start: 08-11-[address] Daron lin MD Work Phone: [facility] Start: 11-25-2020 End: 11-25-2020 Subsequent hospital visit by physician [facility] Work Phone: Radiology Comment on above: Cough [R05] Start: 12-21-2017 End: 12-21-2017 Ambulatory YOGESH ONOFRE [facility] Procedures Date Procedure Procedure Detail Performing Clinician Start: 08-06-[address] Daron Benton MD Work Phone: Start: 08-05-2025 Blood count smear mcrscp w/mnl difrntl wbc count Dr. Daron Benton MD Work Phone: Start: 08-05-2025 Mean corpuscular hemoglobin concentration determination Dr. Daron Benton MD Work Phone: Start: 08-05-2025 Nucleated red blood cell count procedure Dr. Daron Benton MD Work Phone: Start: 08-05-2025 Platelet mean volume determination Dr. Marcelle Benton MD Work Phone: Start: 07-31-2025 Plain chest X-ray Dr. Daron Benton MD Work Phone: Start: 07-31-2025 Blood count smear mcrscp w/mnl difrntl wbc count Dr. Daron Benton MD Work Phone: Start: 07-31-[address] Daron Benton MD Work Phone: Start: 07-31-2025 Mean corpuscular hemoglobin concentration determination Dr. Daron Benton MD Work Phone: Start: 07-31-2025 Nucleated red blood cell count procedure Dr. Daron Benton MD Work Phone: Start: 07-31-2025 Platelet mean volume determination Dr. Marcelle Benton MD Work Phone: Start: 07-22-2025 Blood count smear mcrscp w/mnl difrntl wbc count Dr. Daron Benton MD Work Phone: Start: 07-22-[address] Daron Benton MD Work Phone: Start: 07-22-2025 Mean corpuscular hemoglobin concentration determination Dr. Daron Benton MD Work Phone: Start: 07-22-2025 Nucleated red blood cell count procedure Dr. Daron Benton MD Work Phone: Start: 07-22-2025 Platelet mean volume determination Dr. Marcelle Benton MD Work Phone: Start: 07-22-2025 CT of head without contrast Dr. Daron saleh MD Work Phone: Start: 07-05-2025 CT of head without contrast Dr. Daron saleh MD Work Phone: Start: 06-24-2025 Blood count smear mcrscp w/mnl difrntl wbc count Dr. Daron Benton MD Work Phone: Start: 06-24-2025 Mean corpuscular hemoglobin concentration determination Dr. Daron Benton MD Work Phone: Start: 06-24-2025 Nucleated red blood cell count procedure Dr. Daron Benton MD Work Phone: Start: 06-24-2025 Platelet mean volume determination Dr. Marcelle Benton MD Work Phone: Start: 06-17-2025 Blood count smear mcrscp w/mnl difrntl wbc count Dr. Daron Benton MD Work Phone: Start: 06-17-2025 Mean corpuscular hemoglobin concentration determination Dr. Daron Benton MD Work Phone: Start: 06-17-2025 Nucleated red blood cell count procedure Dr. Daron Benton MD Work Phone: Start: 06-17-2025 Platelet mean volume determination Dr. Marclele Benton MD Work Phone: Start: 06-17-2025 Vitamin D, 25-hydroxy measurement Dr. Sarah Benton MD Work Phone: Start: 06-10-2025 Blood count smear mcrscp w/mnl difrntl wbc count Dr. Daron Benton MD Work Phone: Start: 06-10-2025 Mean corpuscular hemoglobin concentration determination Dr. Daron Benton MD Work Phone: Start: 06-10-2025 Nucleated red blood cell count procedure Dr. Daron Benton MD Work Phone: Start: 06-10-2025 Platelet mean volume determination Dr. Marcelle Benton MD Work Phone: Start: 06-08-2025 Blood count smear mcrscp w/mnl difrntl wbc count Dr. Daron Benton MD Work Phone: Start: 06-08-[address] Daron Benton MD Work Phone: Start: 06-08-2025 Mean corpuscular hemoglobin concentration determination Dr. Daron Benton MD Work Phone: Start: 06-08-2025 Nucleated red blood cell count procedure Dr. Daron Benton MD Work Phone: Start: 06-08-2025 Platelet mean volume determination Dr. Marcelle Benton MD Work Phone: Start: 06-07-2025 CT of chest without contrast Dr. Daron lin MD Work Phone: Start: 06-07-2025 CT of head without contrast Dr. Daron saleh MD Work Phone: Start: 06-07-2025 Urine microscopy: red cells Dr. Daron saleh MD Work Phone: Start: 06-07-2025 Urnls dip stick/tablet reagent auto microscopy Dr. Daron Benton MD Work Phone: Start: 06-07-[address] Daron Benton MD Work Phone: Start: 06-07-2025 Serum inorganic phosphate measurement Dr. Daron Benton MD Work Phone: Start: 06-05-[address] Daron swanson MD Work Phone: Start: 06-04-2025 Calculation of international normalized ratio Dr. Daron Benton MD Work Phone: Start: 06-03-2025 Measurement of occult blood in stool specimen using immunoassay Dr. Daron Benton MD Work Phone: Start: 06-03-2025 Plain chest X-ray Dr. Daron Benton MD Work Phone: Start: 06-03-2025 Blood count smear mcrscp w/mnl difrntl wbc count Dr. Daron Benton MD Work Phone: Start: 06-03-[address] Daron Benton MD Work Phone: Start: 06-03-2025 Mean corpuscular hemoglobin concentration determination Dr. Daron Benton MD Work Phone: Start: 06-03-2025 Nucleated red blood cell count procedure Dr. Daron Benton MD Work Phone: Start: 06-03-2025 Platelet [...] Dr. Daron saleh Work Phone: Start: 01-11-2024 CT angiography [...] contrast Dr. Daron saleh Work Phone: Start: 12-02-2023 Plain chest X-ray [...] Radiologic exam chest 2 views Paloma Thompson APRN.[employer] CUSTODIAN Work Phone: Start: 04-19-2016 Lipid 1996 panel - Serum or Plasma Kristopher Main MD Work Phone: Start: 01-20-2016 Colonoscopy Xr [place] Work Phone: Start: 12-08-2011 Lipid 1996 panel [...] Td or Tdap) [facility] Start: 02-09-2031 Urine microalbumin profile DTaP,Tdap,Td Vaccine (3 - Td or Tdap) [facility] Start: 2029 RSV Vaccine (1 - 1-dose 75+ series) RSV Vaccine (1 - 1-dose 75+ series) [facility] Start: 10-20-2025 End: 10-20-2025 Patient encounter procedure 10/20/2025 2:20 PM EST Office Visit [facility] [address] [place] [phone] Kristopher Main MD [address] [place] [address] [facility] Start: 08-05-2025 [facility] Start: 08-05-2025 End: 08-05-2025 Evaluation of diagnostic study results [facility] Start: 08-01-2025 [facility] Start: 07-31-2025 [facility] Start: 07-23-2025 [facility] Start: 07-20-2025 COVID-19 Vaccine ( season) COVID-19 Vaccine ( season) [facility] Start: 07-20-2025 Influenza vaccination [facility] Start: 07-05-2025 [facility] Start: 06-09-2025 Patient discharge [facility] Start: 06-08-2025 Referral for physical therapy [facility] Start: 06-08-2025 Referral to occupational therapist [facility] Start: 06-08-2025 Referral to service [facility] Start: 06-05-2025 Referral to service [facility] Start: 06-05-2025 Following clinical pathway protocol [facility] Start: 06-05-2025 Oxygen therapy [facility] Start: 06-05-2025 Administration of blood product [facility] Start: 06-04-2025 Following clinical pathway protocol [facility] Start: 06-04-2025 Application of intermittent pneumatic compression device [facility] Start: 06-03-2025 [facility] Start: 06-03-2025 End: 06-03-2025 Patient encounter procedure 06/03/2025 12:30 PM EDT Office Visit [facility] [address] [place] [phone] Lizz Lynn APRN - CNP [address] [place] [phone] [facility] Start: 06-03-2025 End: 06-03-2025 [facility] Start: 06-03-2025 Following clinical pathway protocol [facility] Start: 06-03-2025 Ambulation without limitation [facility] Start: 06-03-2025 Assessment of risk of venous thromboembolism [facility] Start: 06-03-2025 Elevation of affected extremity [facility] Start: 06-03-2025 Inhalation therapy procedure [facility] Start: 06-03-2025 Insertion of catheter into peripheral vein [facility] Start: 06-03-2025 Measuring intake and output [facility] Start: 06-03-2025 Notification of physician [facility] Start: 06-03-2025 [facility] [facility] Start: 06-03-2025 Providing care according to standard [facility] Start: 06-03-2025 Referral to gastroenterology service [facility] Start: 06-03-2025 Administration of blood product [facility] Start: 06-03-2025 Verification routine [facility] Start: 06-03-2025 Hospital admission, emergency, from emergency room, medical nature [facility] Start: 06-03-2025 Admission procedure [facility] Start: 06-03-2025 Leukocyte reduced red blood cells [facility] Start: 06-03-2025 Administration of blood product [facility] Start: 06-03-2025 Patient referral to dietitian [facility] Start: 05-19-2025 [facility] Start: 04-22-2025 Patient discharge [facility] Start: 04-21-2025 [facility] Start: 04-20-2025 Insertion of nasogastric tube [facility] Start: 04-20-2025 [facility] Start: 04-20-2025 End: 04-20-2025 [facility] Start: 04-20-2025 Referral to service [facility] Start: 04-19-2025 Referral to gastroenterology service [facility] Start: 04-19-2025 Administration of blood product [facility] Start: 04-18-2025 Application of intermittent pneumatic compression device [facility] Start: 04-18-2025 Ambulation without limitation [facility] Start: 04-18-2025 Assessment of risk of venous thromboembolism [facility] Start: 04-18-2025 Insertion of catheter into peripheral vein [facility] Start: 04-18-2025 Providing care according to standard [facility] Start: 04-18-2025 [facility] Start: 04-18-2025 Following clinical pathway protocol [facility] Start: 04-18-2025 Verification routine [facility] Start: 04-18-2025 Admission procedure [facility] Start: 04-18-2025 Hospital admission, emergency, from emergency room, medical nature [facility] Start: 04-18-2025 End: 04-19-2025 [facility] Start: 04-18-2025 [facility] Start: 04-18-2025 Patient referral to dietitian [facility] Start: 04-17-2025 Emergency dept visit high severity&threat funcj [facility] Start: 04-11-2025 [facility] Start: 04-02-2025 [facility] Start: 03-04-2025 End: 03-04-2026 Cobalamin (Vitamin B12) [Mass/volume] in Serum or Plasma Vitamin B12 Lab Routine Mild cognitive impairment Deficiency of multiple nutrient elements Expected: 03/04/2025 (Approximate), Expires: 03/04/2026 [facility] Comment on above: Expected: 03/04/2025 (Approximate), Expi res: 03/04/2026 Start: 03-04-2025 End: 03-04-2026 Electroencephalogram EEG Neurology Routine Mild cognitive impairment Expected: 03/04/2025 (Approximate), Expires: 03/04/2026 [facility] Work Phone: Comment on above: Expected: 03/04/2025 (Approximate), Expi res: 03/04/2026 Start: 03-04-2025 End: 03-04-2026 MR Brain WO contrast MR brain wo contrast Imaging Routine Mild cognitive impairment Expected: 03/04/2025, Expires: 03/04/2026 [facility] Comment on above: Expected: 03/04/2025, Expires: Start: 03-04-2025 End: 03-04-2026 Thyrotropin [Units/volume] in Serum or Plasma TSH Lab Routine Mild cognitive impairment Fatigue, unspecified type Expected: 03/04/2025 (Approximate), Expires: 03/04/2026 [facility] Comment on above: Expected: 03/04/2025 (Approximate), Expi res: 03/04/2026 Start: 03-04-2025 End: 03-04-2026 Vitamin B1 ([facility]) Vitamin B1 ([facility]) Lab Routine Mild cognitive impairment Deficiency of multiple nutrient elements Expected: 03/04/2025 (Approximate), Expires: 03/04/2026 [facility] Comment on above: Expected: 03/04/2025 (Approximate), Expi res: 03/04/2026 Start: 03-04-2025 End: 03-04-2026 Vitamin B6 Vitamin B6 Lab Routine Mild cognitive impairment Deficiency of multiple nutrient elements Expected: 03/04/2025 (Approximate), Expires: 03/04/2026 [facility] Comment on above: Expected: 03/04/2025 (Approximate), Expi res: 03/04/2026 Start: 01-13-2025 Patient discharge [facility] Start: 01-11-2025 Following clinical pathway protocol [facility] Start: 01-11-2025 Assessment of risk of venous thromboembolism [facility] Start: 01-11-2025 Fall prevention [facility] Start: 01-11-2025 Inhalation therapy procedure [facility] Start: 01-11-2025 Insertion of catheter into peripheral vein [facility] Start: 01-11-2025 Introduction of urinary catheter [facility] Start: 01-11-2025 Measuring intake and output [facility] Start: 01-11-2025 Oxygen therapy [facility] Start: 01-11-2025 Providing care according to standard [facility] Start: 01-11-2025 Provision of activity privileges [facility] Start: 01-11-2025 Referral to digital strategy director [facility] Start: 01-11-2025 Referral to occupational therapist [facility] Start: 01-11-2025 Referral to service [facility] Start: 01-11-2025 Tobacco use cessation education [facility] Start: 01-11-2025 [facility] Start: 01-11-2025 Patient referral to dietitian [facility] Start: 01-10-2025 Admission procedure [facility] Start: 12-17-2024 [facility] Start: 12-11-2024 Patient discharge [facility] Start: 12-10-2024 Cardiac monitoring [facility] Start: 12-10-2024 Notification of physician [facility] Start: 12-10-2024 Oxygen therapy [facility] Start: 12-10-2024 Patient discharge [facility] Start: 12-10-2024 Patient education [facility] Start: 12-10-2024 Provision of activity privileges [facility] Start: 12-10-2024 Pulse taking [facility] Start: 12-10-2024 Systemic arterial pressure monitoring [facility] Start: 12-10-2024 Taking patient vital signs [facility] Start: 12-10-2024 Vascular disease risk assessment [facility] Start: 12-10-2024 Vital signs measurements [facility] Start: 12-10-2024 Wound care [facility] Start: 12-10-2024 [facility] Start: 12-09-2024 Referral to digital strategy director [facility] Start: 12-09-2024 Following clinical pathway protocol [facility] Start: 12-09-2024 Assessment of risk of venous thromboembolism [facility] Start: 12-09-2024 Insertion of catheter into peripheral vein [facility] Start: 12-09-2024 Measuring intake and output [facility] Start: 12-09-2024 Oxygen therapy [facility] Start: 12-09-2024 Providing care according to standard [facility] Start: 12-09-2024 Provision of activity privileges [facility] Start: 12-09-2024 Referral to occupational therapist [facility] Start: 12-09-2024 Referral to service [facility] Start: 12-09-2024 Tobacco use cessation education [facility] Start: 12-09-2024 [facility] Start: 12-09-2024 Admission procedure [facility] Start: 12-09-2024 Patient referral to dietitian [facility] Start: 12-08-2024 End: 12-08-2024 Patient encounter procedure 12/08/2024 11:30 AM EST [facility] [address] [place] [id number] Mamta Wood APRN - CNP [address] [place] [address] [facility] Start: 11-19-2024 Medicare Advantage Annual Wellness Visit Medicare Advantage Annual Wellness Visit [facility] Start: 07-20-2024 Covid-19 Vaccine ( season) Covid-19 Vaccine () [facility] Start: 07-20-2024 COVID-19 Vaccine ( season) COVID-19 Vaccine () [facility] Start: 07-20-2024 Influenza vaccination Influenza Vaccine (#1) [facility] Start: 04-04-2024 Creatinine measurement Creatinine Level [facility] Start: 04-04-2024 Potassium measurement Potassium Level [facility] Start: 02-25-2024 Patient discharge [facility] Start: 02-23-2024 End: 02-24-2024 [facility] Start: 02-22-2024 End: 02-22-2024 Administration of blood product [facility] Start: 02-22-2024 Transfusion of red blood cells [facility] Start: 02-22-2024 Referral to service [facility] Start: 02-22-2024 Blood chemistry [facility] Start: 02-22-2024 [facility] Start: 02-21-2024 Oxygen therapy [facility] Start: 02-21-2024 Blood chemistry [facility] Start: 02-21-2024 End: 02-22-2024 [facility] Start: 02-20-2024 Referral to occupational therapist [facility] Start: 02-20-2024 Referral to service [facility] Start: 02-20-2024 [facility] Start: 02-20-2024 Blood chemistry [facility] Start: 02-20-2024 End: 02-20-2024 [facility] Start: 02-19-2024 [facility] Start: 02-19-2024 Following clinical pathway protocol [facility] Start: 02-19-2024 Ambulation without limitation [facility] Start: 02-19-2024 Assessment of risk of venous thromboembolism [facility] Start: 02-19-2024 Elevation of head of bed [facility] Start: 02-19-2024 Inhalation therapy procedure [facility] Start: 02-19-2024 Insertion of catheter into peripheral vein [facility] Start: 02-19-2024 Measuring intake and output [facility] Start: 02-19-2024 Patient education [facility] Start: 02-19-2024 Providing care according to standard [facility] Start: 02-19-2024 Referral to gastroenterology service [facility] Start: 02-19-2024 End: 02-19-2024 [facility] Start: 02-19-2024 End: 02-19-2024 [facility] Start: 02-19-2024 Bacteria identified in Sputum by Culture [facility] Start: 02-19-2024 Legionella pneumophila Ag [Presence] in Urine [facility] Start: 02-19-2024 Streptococcus pneumoniae antigen assay [facility] Start: 02-19-2024 Verification routine [facility] Start: 02-19-2024 Admission procedure [facility] Start: 02-19-2024 End: 02-19-2024 Blood culture [facility] Start: 02-19-2024 [facility] Start: 02-19-2024 Administration of blood product [facility] Start: 02-19-2024 End: 02-20-2024 [facility] Start: 01-25-2024 End: 01-25-2024 Patient encounter procedure 01/25/2024 12:30 PM EST Office Visit [facility] [address] [facility] [address] [place] [id number] Lizz Lynn APRN - COLORS CUSTODIAN [address] [facility] [address] [place] [id number] [facility] Start: 01-18-2024 [facility] Start: 01-11-2024 [facility] Start: 01-11-2024 [facility] Start: 12-07-2023 Patient discharge [facility] Start: 12-07-2023 Referral to service [facility] Start: 12-06-2023 Care planning and problem solving actions [facility] Start: 12-05-2023 [facility] Start: 12-04-2023 End: 12-05-2023 [facility] Start: 12-04-2023 Following clinical pathway protocol [facility] Start: 12-03-2023 End: 12-04-2023 [facility] Start: 12-03-2023 Care planning and problem solving actions [facility] Start: 12-03-2023 Care planning and problem solving actions [facility] Start: 12-03-2023 Speech therapy assessment [facility] Start: 12-03-2023 Inhalation therapy procedure [facility] Start: 12-02-2023 [facility] Start: 12-02-2023 Providing care according to standard [facility] Start: 12-02-2023 Ambulation without limitation [facility] Start: 12-02-2023 Assessment of risk of venous thromboembolism [facility] Start: 12-02-2023 Insertion of catheter into peripheral vein [facility] Start: 12-02-2023 Measuring intake and output [facility] Start: 12-02-2023 Oxygen therapy [facility] Start: 12-02-2023 Providing care according to standard [facility] Start: 12-02-2023 Referral to occupational therapist [facility] Start: 12-02-2023 Referral to service [facility] Start: 12-02-2023 Telemedicine consultation with patient [facility] Start: 12-02-2023 [facility] Start: 12-02-2023 Blood culture [facility] Start: 12-02-2023 Verification routine [facility] Start: 12-02-2023 Hospital admission, emergency, from emergency room, medical nature [facility] Start: 12-02-2023 Admission procedure [facility] Start: 12-02-2023 [facility] Start: 12-02-2023 End: 12-02-2023 [facility] Start: 12-02-2023 [facility] Start: 11-27-2023 [facility] Start: 11-27-2023 Oxygen therapy [facility] Start: 11-27-2023 [facility] Start: 11-26-2023 [facility] Start: 11-21-2023 Patient discharge [facility] Start: 11-19-2023 Advance Directive Discussion Advance Directive Discussion [facility] Start: 11-19-2023 Medicare Advantage Annual Wellness Visit Medicare Advantage Annual Wellness Visit [facility] Start: 11-18-2023 Application of intermittent pneumatic compression device [facility] Start: 11-18-2023 Provision of activity privileges [facility] Start: 11-18-2023 Assessment of risk of venous thromboembolism [facility] Start: 11-18-2023 Fall prevention [facility] Start: 11-18-2023 Insertion of catheter into peripheral vein [facility] Start: 11-18-2023 Introduction of urinary catheter [facility] Start: 11-18-2023 Measuring intake and output [facility] Start: 11-18-2023 Providing care according to standard [facility] Start: 11-18-2023 Referral to occupational therapist [facility] Start: 11-18-2023 Referral to service [facility] Start: 11-18-2023 [facility] Start: 11-18-2023 Following clinical pathway protocol [facility] Start: 11-18-2023 Admission procedure [facility] Start: 11-16-2023 Patient discharge [facility] Start: 11-16-2023 Plain chest X-ray Chest 1 View (Portable) [facility] Start: 11-16-2023 XR Chest Single view [facility] Start: 11-16-2023 [facility] Start: 11-15-2023 Respiratory secretion precautions [facility] Start: 11-15-2023 Following clinical pathway protocol [facility] Start: 11-15-2023 Aspiration precautions [facility] Start: 11-15-2023 Assessment of risk of venous thromboembolism [facility] Start: 11-15-2023 Fall prevention [facility] Start: 11-15-2023 Incentive spirometry [facility] Start: 11-15-2023 Inhalation therapy procedure [facility] Start: 11-15-2023 Insertion of catheter into peripheral vein [facility] Start: 11-15-2023 Introduction of urinary catheter [facility] Start: 11-15-2023 Measuring intake and output [facility] Start: 11-15-2023 Oxygen therapy [facility] Start: 11-15-2023 Providing care according to standard [facility] Start: 11-15-2023 Provision of activity privileges [facility] Start: 11-15-2023 Referral to occupational therapist [facility] Start: 11-15-2023 Referral to service [facility] Start: 11-15-2023 [facility] Start: 11-15-2023 Verification routine [facility] Start: 11-15-2023 Admission procedure [facility] Start: 11-15-2023 Hospital admission, emergency, from emergency room, medical nature [facility] Start: 11-15-2023 [facility] Start: 11-15-2023 Consultation [facility] Start: 10-05-2023 [facility] Start: 10-05-2023 [facility] Start: 07-20-2023 COVID-19 Vaccine ( season) COVID-19 Vaccine () [facility] Start: 07-20-2023 Influenza vaccination Influenza Vaccine (#1) [facility] Start: 04-08-2023 [facility] Start: 04-04-2023 End: 04-04-2023 Patient encounter procedure 04/04/2023 Office Visit Neurology Kristopher Main MD [address] [place] [address] [facility] [place] Start: 03-31-2023 [facility] Start: 02-01-2023 Dual energy X-ray absorptiometry Dexa Bone Density Study [facility] Start: 02-20-2022 [facility] Work Phone: Start: 10-21-2021 Patient referral [facility] Work Phone: Start: 04-19-2021 Lipid panel Lipid Panel [facility] Start: 01-19-2021 Screening for malignant neoplasm of colon [facility] Start: 2019 Pneumococcal Vaccine: 65+ (2 of 2 - PCV) Pneumococcal Vaccine: 65+ (2 of 2 - PCV) [facility] Start: 2019 Screening for osteoporosis Bone Density Screening [facility] Start: 12-08-2016 Lipid panel Lipid Screening [facility] Start: 08-19-2016 Diabetes Screening Diabetes Screening [facility] Start: 2014 RSV Immunization aged 60 or older (1 - 1-dose 60+ series) RSV Immunization aged 60 or older (1 - 1-dose 60+ series) [facility] Start: 08-21-2014 RSV Immunization for Adults (1 - Risk 60-74 years 1-dose series) RSV Immunization for Adults (1 - Risk 60-74 years 1-dose series) [facility] Start: 08-26-2010 Screening for malignant neoplasm of breast Mammogram Screening [facility] Start: 08-19-2009 Pneumococcal Vaccine: 50+ Years (2 of 2 - PCV) Pneumococcal Vaccine: 50+ Years (2 of 2 - PCV) [facility] Start: 08-19-2009 Pneumococcal Vaccine: 65+ Years (2 - PCV) Pneumococcal Vaccine: 65+ Years (2 - PCV) [facility] Start: 08-19-2009 Pneumococcal Vaccine: 65+ Years (2 of 2 - PCV) Pneumococcal Vaccine: 65+ Years (2 of 2 - PCV) [facility] Start: 2004 Shingrix Vaccine (1 of 2) Shingrix Vaccine (1 of 2) [facility] Start: 2004 Zoster Vaccines (1 of 2) Zoster Vaccines (1 of 2) [facility] Start: 1999 Screening for malignant neoplasm of colon [facility] Start: 1994 Screening for malignant neoplasm of breast Mammogram [facility] Start: 1972 Anxiety Screening Anxiety Screening [facility] Start: 1972 Depression Screening Depression Screening [facility] Start: 1972 Diabetes mellitus screening Diabetes Screening [facility] Start: 1972 Hepatitis C screening Hepatitis C Screening [facility] Start: 1966 Depression Monitoring Depression Monitoring [facility] Start: 1966 Depression Screening Depression Screening [facility] Start: 1954 Echocardiography Echocardiogram [facility] Start: 1954 Hepatitis B Vaccines (1 of 3 - 3-dose series) Hepatitis B Vaccines (1 of 3 - 3-dose series) [facility] Start: 1954 Lipid panel Lipid Panel [facility] Start: 1954 Medicare Advantage Annual Wellness Visit (AWV) Medicare Advantage Annual Wellness Visit (AWV) [facility] Start: 1954 Screening for malignant neoplasm of colon [facility] Start: 1954 Screening for osteoporosis Bone Density Scan [facility] Start: 1954 Thyroid stimulating hormone measurement TSH Level [facility] Alanine aminotransfe rase [Enzymatic activity/volume] in Serum or Plasma [facility] Alanine aminotransfe rase [Enzymatic activity/volume] in Serum or Plasma [facility] Alanine aminotransfe rase [Enzymatic activity/volume] in Serum or Plasma [facility] Albumin [Mass/volume ] in Serum or Plasma [facility] Albumin [Mass/volume ] in Serum or Plasma [facility] Albumin [Mass/volume ] in Serum or Plasma [facility] Albumin/Globulin [Ma ss Ratio] in Serum or Plasma by Electrophoresis [facility] Work Phone: Albumin/Globulin [Ma ss Ratio] in Serum or Plasma by Electrophoresis [facility] Alkaline phosphatase [Enzymatic activity/volume] in Serum or Plasma [facility] Alkaline phosphatase [Enzymatic activity/volume] in Serum or Plasma [facility] Alkaline phosphatase [Enzymatic activity/volume] in Serum or Plasma [facility] Alpha 1 antitrypsin [Mass/volume] in Serum or Plasma [facility] Anion gap measurement [facility] Anion gap measurement [facility] Anion gap measurement [facility] Aspartate aminotrans ferase [Enzymatic activity/volume] in Serum or Plasma [facility] Aspartate aminotrans ferase [Enzymatic activity/volume] in Serum or Plasma [facility] Aspartate aminotrans ferase [Enzymatic activity/volume] in Serum or Plasma [facility] Bacteria identified in Urine by Culture Urine Culture [facility] Bilirubin measurement, urine [facility] Bilirubin measurement, urine [facility] Bilirubin, total measurement [facility] Bilirubin, total measurement [facility] Bilirubin, total measurement [facility] BUN/Creatinine ratio [facility] BUN/Creatinine ratio [facility] BUN/Creatinine ratio [facility] Calcium [Mass/volume ] in Serum or Plasma [facility] Calcium [Mass/volume ] in Serum or Plasma [facility] Calcium [Mass/volume ] in Serum or Plasma [facility] Carbon dioxide, tota l [Moles/volume] in Serum or Plasma [facility] Carbon dioxide, tota l [Moles/volume] in Serum or Plasma [facility] Carbon dioxide, tota l [Moles/volume] in Serum or Plasma [facility] Cardiac event recording [facility] CBC W Auto Different ial panel - Blood [facility] Chloride [Moles/volu me] in Serum or Plasma [facility] Chloride [Moles/volu me] in Serum or Plasma [facility] Chloride [Moles/volu me] in Serum or Plasma [facility] Creatinine [Moles/vo lume] in Serum or Plasma [facility] Creatinine [Moles/vo lume] in Serum or Plasma [facility] Creatinine [Moles/vo lume] in Serum or Plasma [facility] Electrophoresis: albumin [facility] Work Phone: Electrophoresis: albumin [facility] Electrophoresis: [id number] [facility] Work Phone: Electrophoresis: [id number] [facility] Electrophoresis: [id number] [facility] Work Phone: Electrophoresis: [id number] [facility] Electrophoresis: francisco j ma globulin [facility] Work Phone: Electrophoresis: francisco j ma globulin [facility] Globulin measurement [facility] Work Phone: Globulin measurement [facility] Glucose [Mass/volume ] in Serum or Plasma [facility] Glucose [Mass/volume ] in Serum or Plasma [facility] Glucose [Mass/volume ] in Serum or Plasma [facility] Hematocrit [Volume F raction] of Blood [facility] Hematocrit [Volume F raction] of Blood [facility] Hematocrit [Volume F raction] of Blood [facility] Hematocrit [Volume F raction] of Blood [facility] Hemoglobin [Mass/vol ume] in Blood [facility] Hemoglobin [Mass/vol ume] in Blood [facility] Hemoglobin [Mass/vol ume] in Blood [facility] Hemoglobin [Mass/vol ume] in Blood [facility] Hemoglobin [Presence ] in Urine [facility] Hemoglobin [Presence ] in Urine [facility] Measurement of keton es in urine using dipstick [facility] Measurement of keton es in urine using dipick [facility] Measurement of renal function [facility] Measurement of renal function [facility] Measurement of renal function [facility] Microscopic urinalysis [facility] Microscopic urinalysis [facility] NM Heart Views W str ess and W radionuclide IV [facility] Organism count, micr oscopic method [facility] Patient Education [facility] Work Phone: Patient referral [facility] Work Phone: pH of Urine [facility] pH of Urine [facility] Potassium [Moles/vol ume] in Serum or Plasma [facility] Potassium [Moles/vol ume] in Serum or Plasma [facility] Potassium [Moles/vol ume] in Serum or Plasma [facility] Protein electrophore sis panel - Serum or Plasma [facility] Work Phone: Protein electrophore sis panel - Serum or Plasma [facility] Serum protein electrophoresis [facility] Work Phone: Serum protein electrophoresis [facility] Sodium [Moles/volume ] in Serum or Plasma [facility] Sodium [Moles/volume ] in Serum or Plasma [facility] Sodium [Moles/volume ] in Serum or Plasma [facility] Specific gravity of Urine [facility] Specific gravity of Urine [facility] Total globulins measurement [facility] Work Phone: Total globulins measurement [facility] Total protein measurement [facility] Total protein measurement [facility] Total protein measurement [facility] Troponin T.cardiac [Mass/volume] in Serum or Plasma by High sensitivity method [facility] Urea nitrogen [Mass/ volume] in Serum or Plasma [facility] Urea nitrogen [Mass/ volume] in Serum or Plasma [facility] Urea nitrogen [Mass/ volume] in Serum or Plasma [facility] Urinalysis, blood, qualitative [facility] Urine blood test [facility] Urine dipstick for glucose [facility] Urine dipstick for glucose [facility] Urine dipstick for l eukocyte esterase [facility] Urine dipstick for l eukocyte esterase [facility] Urine dipstick for nitrite W [facility] Urine dipstick for nitrite [facility] Urine dipstick for protein [facility] Urine dipstick for protein [facility] Urine examination [facility] Urine examination [facility] Urine microscopy: ep ithelial cells [facility] Urine microscopy: ep ithelial cells [facility] Urine Microscopy: wh ite cells [facility] Urobilinogen [Presen ce] in Urine [facility] Urobilinogen [Presen ce] in Urine [facility] US Heart Transesophageal [facility] White blood cell count [facility] Immunizations Immunization Date Immunization Notes Care Provider Catrachito oakes 08-19-2024 influenza, high dose seasonal, preservative-free Dr. Daron Benton MD Work Phone: [facility] 08-19-2024 influenza virus vacc ine, unspecified formulation Lizz Lynn WATCH AND CLOCK REPAIRER - COLORS CUSTODIAN Work Phone: [facility] 08-17-2023 Influenza High-Dose Quadrivalent Dr. Daron Benton Work Phone: [facility] 08-17-2023 influenza virus vacc ine, unspecified formulation Mamta Wood WATCH AND CLOCK REPAIRER - COLORS CUSTODIAN Work Phone: [facility] 09-16-2022 Covid Pfizer Bivalen t Booster Dr. aDron Benton Work Phone: [facility] 09-16-2022 Influenza High-Dose Quadrivalent Dr. Daron Benton Work Phone: [facility] 09-16-2022 influenza virus vacc ine, unspecified formulation Kristopher Main MD Work Phone: [facility] 05-17-2022 Covid (Moderna) Dr. Daron Scott Work Phone: [facility] 09-21-2021 Covid (Moderna) Dr. Daron Scott Work Phone: [facility] 02-09-2021 tetanus toxoid, redu maya diphtheria toxoid, and acellular pertussis vaccine, adsorbed Dr. Daron Benton Work Phone: [facility] 01-13-2021 Covid (Moderna) Dr. Daron Scott Work Phone: [facility] 12-16-2020 Covid (Moderna) Dr. Daron Scott Work Phone: [facility] 08-13-2019 Influenza, high dose seasonal Dr. Daron Benton MD Work Phone: [facility] 08-13-2019 influenza, high dose seasonal, preservative-free Dr. Daron Benton Work Phone: [facility] 08-13-2019 Dr. Daron Benton MD Work Phone: [facility] 08-13-2019 influenza virus vacc ine, unspecified formulation Xr [place] Work Phone: [facility] 08-20-2018 influenza, injectabl e, quadrivalent, preservative free Dr. Daron Benton Work Phone: [facility] 07-20-2011 influenza virus vacc ine, unspecified formulation Xr [place] Work Phone: [facility] 09-01-2009 influenza virus vacc ine, unspecified formulation Xr [place] Work Phone: [facility] 09-18-2008 influenza virus vacc ine, unspecified formulation Xr [place] Work Phone: [facility] 08-19-2008 pneumococcal polysaccharide vaccine, 23 valent Xr [place] Work Phone: [facility] 08-23-2006 diphtheria and tetan us toxoids, adsorbed for pediatric use [facility]r [place] Work Phone: [facility] Payers Date Payer Category Payer Self-pay [id number] 2022 Medicare HMO [employer] [id number] 2019 Medicaid [employer] MYC[employer] [id number] 2019-Present [phone] [address] [place] [address] Medicaid [id number] 2017 Medicare [id number]. [id number]. [id number] 2016 Medicare [id number] 2016 Unknown [id number] 1955 Unknown [id number] 2.16.840.1.632369.3.579.2.627 Unknown [id number] 2.16.840.1.257698.3.579.2.462 Unknown [id number] 2.16.840.1.590461.3.579.2.462 Unknown [id number] 2.16.840.1.963599.3.579.2.462 Unknown [id number] 2.16.840.1.054618.3.579.2.462 Unknown [id number] 2.16.840.1.783866.3.579.2.462 Unknown [id number] 2.16.840.1.705554.3.579.2.462 Unknown [id number] 2.16.840.1.201906.3.579.2.462 Unknown [id number] 2.16.840.1.545535.3.579.2.462 Unknown [id number] 2.16.840.1.055962.3.579.2.462 Unknown [id number] 2.16.840.1.366966.3.579.2.462 Unknown [id number] 2.16.840.1.371570.3.579.2.462 Unknown [id number] 2.16.840.1.057927.3.579.2.462 Unknown [id number] 2.16.840.1.169463.3.579.2.462 Unknown [id number] 2.16.840.1.693069.3.579.2.462 Unknown [id number] 2.16.840.1.358003.3.579.2.462 Unknown [id number] 2.16.840.1.758555.3.579.2.462 Unknown [id number] 2.16.840.1.759900.3.579.2.462 Unknown [id number] 2.16.840.1.736973.3.579.2.462 Unknown [id number] 2.16.840.1.000187.3.579.2.462 Unknown [id number] 2.840.1.860971.3.579.2.462 Unknown [id number] 2.840.1.256214.3.579.2.462 Unknown [id number] 2.840.1.249623.3.579.2.462 Unknown [id number] 2.840.1.422647.3.579.2.462 Unknown [id number] 2.840.1.288109.3.579.2.462 Unknown [id number] 2.840.1.839801.3.579.2.462 Unknown [id number] 2.840.1.054988.3.579.2.462 Unknown [id number] 2.16840.1.105794.3.579.2.462 Unknown [id number] 2.16.840.1.446830.3.579.2.462 Unknown [id number] 2.16840.1.088686.3.579.2.462 Unknown [id number] 2.16.840.1.993277.3.579.2.462 Unknown [id number] 2.16.840.1.333936.3.579.2.462 Unknown [id number] 2.16.840.1.833071.3.579.2.462 Unknown [id number] 2.16.840.1.295783.3.579.2.462 Unknown [id number] 2.16.840.1.924005.3.579.2.462 Unknown [id number] 2.16840.1.045234.3.579.2.462 Unknown [id number] 2.16840.1.587007.3.579.2.462 Unknown [id number] 2.840.1.154099.3.579.2.462 Unknown [id number] 2.840.1.605965.3.579.2.462 Unknown [id number] 2.840.1.467604.3.579.2.462 Unknown [id number] 2.840.1.383828.3.579.2.462 Unknown [id number] 2.840.1.470603.3.579.2.462 Unknown [id number] 2.840.1.451689.3.579.2.462 Unknown [id number] 2.16840.1.029129.3.579.2.462 Unknown [id number] 2.840.1.443643.3.579.2.462 Unknown [id number] 2.16840.1.041311.3.579.2.462 Unknown [id number] 2.16840.1.238306.3.579.2.462 Unknown [id number] 2.16840.1.938970.3.579.2.462 Unknown [id number] 2.16.840.1.306120.3.579.2.462 Unknown [id number] 2.16840.1.596575.3.579.2.462 Unknown [id number] 2.16.840.1.139572.3.579.2.462 Unknown [id number] 2.16.840.1.807886.3.579.2.462 Unknown [id number] 2.16.840.1.520771.3.579.2.462 Unknown [id number] 2.16.840.1.147913.3.579.2.462 Unknown [id number] 2.16.840.1.929240.3.579.2.462 Unknown [id number] 2.16.840.1.281797.3.579.2.462 Unknown [id number] 2.16.840.1.155671.3.579.2.462 Unknown [id number] 2.16.840.1.496925.3.579.2.462 Unknown [id number] 2.16.840.1.104808.3.579.2.462 Unknown [id number] 2.16.840.1.961741.3.579.2.462 Unknown [id number] 2.16.840.1.056827.3.579.2.462 Unknown [id number] 2.16.840.1.098082.3.579.2.462 Unknown [id number] 2.16.840.1.423777.3.579.2.462 Unknown [id number] 2.16.840.1.884804.3.579.2.462 Unknown [id number] 2.16.840.1.131710.3.579.2.462 Unknown [id number] 2.16.840.1.773878.3.579.2.462 Unknown [id number] 2.16.840.1.149914.3.579.2.462 Unknown [id number] 2.16.840.1.349817.3.579.2.462 Unknown [id number] 2.16.840.1.215778.3.579.2.462 Unknown [id number] 2.16.840.1.785138.3.579.2.462 Unknown [id number] 2.16840.1.971212.3.579.2.462 Unknown [id number] 2.16.840.1.044091.3.579.2.462 Unknown [id number] 2.840.1.279772.3.579.2.462 Unknown [id number] 2.16840.1.551483.3.579.2.462 Social History Date Type Detail Facility Start: 02-17-2022 End: 02-21-2024 Tobacco smoking status IDIS Unknown if ever smoked [facility] Start: 01-18-2020 Occasional [facility] Start: 01-18-2020 None [facility] Start: 01-29-2020 Alone [facility] Start: 02-09-2021 Cigarettes [facility] Start: 1955 Sex Assigned At Female W [facility] Start: 12-08-2016 End: 08-05-2025 Tobacco smoking status IDIS Smokes tobacco daily [facility] History of tobacco use Cigarette Smoker [facility] Start: 04-04-2023 End: 07-23-2025 Alcohol intake Ex-drinker (finding) [facility] Start: 04-04-2023 End: 07-23-2025 History of Social function [facility] Start: 04-04-2023 End: 07-23-2025 Tobacco use panel [facility] Start: 1955 Sex Assigned At Not on file [facility] Start: 12-08-2016 End: 03-04-2025 Tobacco use and exposure Smokeless tobacco non-user [facility] Start: 11-25-2020 Alcoholic beverage intake Not Asked [facility] National Score (1-100), lower number is lower risk Not on file [facility] Start: 10-26-2020 End: 10-05-2022 Exposure to SARS-CoV-2 (event) Not sure [facility] Start: 06-19-2022 Sex Female (finding) [facility] Start: 04-02-2025 End: 04-20-2025 Tobacco smoking status NHIS Current Light tobacco smoker [facility] NEGATED: Highlighted row [facility] NEGATED: Highlighted row [facility] Medical Equipment Procedure Code Equipment Code Equipment Origin al Text Equipment Identifier Dates GDC aneurysm coil FDA Start: 02-03-2014 GDC aneurysm coil FDA Start: 02-03-2014 Protege GFS stent FDA Start: 08-25-2015 ([id number]) [id number] FDA Start: 01-18-2022 GDC aneurysm coil FDA [...] Assessment Result Facility 06-09-2025 Functional status Ambulates [facility] Work Phone: 06-08-2025 Functional status Fair [facility] Work Phone: 04-22-2025 Functional status Ambulates [facility] Work Phone: 01-13-2025 Functional status Standby Assist [facility] Work Phone: 01-13-2025 Functional status Ambulates;Bathroom Priv ilege [facility] Work Phone: 12-11-2024 Functional status Bathroom Privilege [facility] Work Phone: 02-25-2024 Functional status Ambulates [facility] Work Phone: 12-07-2023 Functional status Ambulates;Chair [facility] Work Phone: 11-21-2023 Functional status Ambulates [facility] Work Phone: 11-16-2023 Functional status Ambulates [facility] Work Phone: 11-09-2022 Functional Status Ambulating in room [facility] 11-09-2022 Functional Status [facility] 11-09-2022 Functional Status Maintained [facility] Mental Status Date Assessment Result Facility 08-05-2025 Cognitive function Awake [facility] Work Phone: 07-31-2025 Cognitive function Awake [facility] Work Phone: 07-22-2025 Cognitive function Awake;Alert;[facility] Work Phone: 07-05-2025 Cognitive function Awake;Alert;A ppropriate;Follo [facility] Work Phone: 06-09-2025 Cognitive function Voice/Name [facility] Work Phone: 06-03-2025 Cognitive function Awake;Alert;A [facility]propriate;[facility] Work Phone: 05-19-2025 Cognitive function Awake;Alert;A ppropriate;[facility] Work Phone: 04-22-2025 Cognitive function Voice/Name;Touch/Shaki ng [facility] Work Phone: 04-18-2025 Cognitive function Level Of Cons ciousness Awake;Alert;Appropriate;Follo [facility] Work Phone: 04-02-2025 Cognitive function Awake;Appropr iate;Follows Commands;Drowsy [facility] Work Phone: 01-13-2025 Cognitive function Voice/Name [facility] Work Phone: 12-11-2024 Cognitive function Voice/Name [facility] Work Phone: 02-25-2024 Cognitive function Voice/Name [facility] Work Phone: 02-19-2024 Cognitive function Awake;Alert;A ppropriate;[facility] Work Phone: 12-07-2023 Cognitive function Voice/Name [facility] Work Phone: 12-02-2023 Cognitive function Awake;Drowsy [facility] Work Phone: 11-27-2023 Cognitive function Voice/Name [facility] Work Phone: 11-21-2023 Cognitive function Voice/Name [facility] Work Phone: 11-18-2023 Cognitive function Level Of Cons ciousness Awake;Alert;Appropriate;Follo Apixio [facility] Work Phone: 11-16-2023 Cognitive function Voice/Name [facility] Work Phone: 11-15-2023 Cognitive function Level Of Cons ciousness Awake;Alert;Appropriate;Follo Apixio [facility] Work Phone: 10-05-2023 Cognitive function Awake;Alert;A ppropriate;[facility] Embedded Chat [facility] Work Phone: 04-08-2023 Cognitive function Level Of Cons ciousness Awake;Alert;Appropriate [facility] Work Phone: 03-16-2023 Cognitive function Level Of Cons ciousness Awake;Alert;Appropriate;[facility] Embedded Chat [facility] Work Phone: 11-09-2022 Mental Status Orientation Oriented x 4 [facility] 11-09-2022 Mental Status [facility] 11-09-2022 Mental Status [facility] 02-18-2022 Cognitive function Voice/Name [facility] Work Phone: Clinical Notes 11-25-2020 to 07-23-2025 Lizz Lynn APRN - COLORS CUSTODIAN - 07/23/2025 12:30 PM EDT Note Date [...] Subjective HPI: REVIEW- 04/12 - ED at [place] for MS flare affective speech, swallowing, VOSS. [...] last night for SBP 200's. Was in retirement for 1 month over June for issues with BP and weakness after having 2 bleeding ulcers and 4 blood transfusions - had PT. She is feeling better since discharge; doing PT at the house. She had MRI brain done at [place] - I do not have the results [...] TSH VITAMIN B12: No results found for: [id number] No results found for: PHENYTOIN, PHENOBARB, VALPROATE, CBMZ No components found for: TOPIRA @RESULTINGLABINFO@ No results found for: LEVETIRACETA, FERRITIN, CRP, DENNIS, ANCA No results found for: CHRISTIANO, IMMUNOGLOBUL, OLIGOBANDS No results found for: [id number], HEPCAB No results found for: CRP, ANATITER, [...] tablet Stable; she had MRI brain at [place] that I do not have access to; [...] history on file. documented in this encounter [facility] 07-23-2025 Radiology Diagnostic study note [facility] 07-22-2025 Discharge summary Note Date/Time July 23, 2025 12:41am [facility] Medical Records Department [address] [place] [address] Emergency Department Summary 07/22/25 MR#: [id number] Acct: [id number] Name: ANGÉLICA YO Rep #:[id number] : 1955 70 From: Ramírez Onofre MD PCP: Dr. Daron Benton MD Status:REG ER Location: ED HPI History of Present Illness Chief Complaint: Headache [...] similar symptoms: Yes Recent Illness/Hospitalization: No PFSH PFSH Medical History Hypertensive emergency NSTEMI, initial [...] (dyspnea on exertion) Atherosclerotic heart disease of [place] coronary artery without angina pectoris Cardiac murmur [...] Stomach morphine AdvReac Nausea Verified 07/22/25 21:55 Eftfapj-QBP-EbP Reductase AdvReac Nausea Verified 07/22/25 21:55 Inhibitor (Kupdzkv-Rda-Tzq Reductase Inhibitor) Family History Mother Cancer CAD [...] edema or cords. 5 out of 5 maintainer operator strength. Dorsi plantarflexion intact. Neurologic exam she is awake alert. Answer questions following commands. Normal speech. No facial droop. Again normal maintainer operator strength and dorsi plantarflexion. Fingertip to nose [...] impaired, lethargic or stuporous Coordination / Balance: eiazvm-tw-nuxd test normal Speech: speech normal Motor Exam: [...] 70.7 H Lymph % (Auto) 12.6 L [place] % (Auto) 9.6 Eos % (Auto) 5.0 [...] kcal/mL Liquid 120 ml PO TIDCM Qty: 65078 0RF pantoprazole [Protonix] 40 mg tablet,delayed release [...] BIDCM Qty: 180 3RF Primary Care Provider: Daron Benton Referrals: Daron Benton MD [Primary Care Provider] - 3-5 Days if not improving Activity Restrictions/Additional Instructions: Check your blood pressures twice daily over the next 5 to 7 days. Follow-up with your primary care physician if your blood pressures are running reasonably well. Take your medications as prescribed. Tylenol for pain. Print Language: Dominican Disposition Disposition: Home, Self Care What to do if you have Problems For any increased pain, shortness of breath, bleeding, nausea or vomiting, chestpain, or any unexpected problems, contact your Primary Care Provider. Call [facility] ([phone]) or report to the closest Emergency Room. Call 911 if necessary. 07/23/25 0041 <Electronically signed by Ramírez Onofre MD> Cosigner Signature (if applicable): CC: Dr. Daron Benton MD ~ Signed [facility] Work Phone: 1(593) 433-439009-03-2025 Hospital Discharge instructionsAdditional Instructions Check your blood pressures twice daily over the next 5 to 7 days. Follow-up with your primary care physician if your blood pressures are running reasonably well. Take your medications as prescribed. Tylenol for pain.[facility] Work Phone: 1(680) 288-601108-17-2025 Radiology Diagnostic study [facility]07-22-2025 Discharge summary Author Dex [facility] hospital[facility] Note Date/Time June 09, 2025 4:22 pm [facility] Medical Records Department [address] [place] [address] Transfer to [facility] MR#: [id number] Acct: [id number] Name: ANGÉLICA YO Rep #:[id number] 7 : 1955 69 From: Dex Worrell DO PCP: Dr. Daron Benton MD Status:ADM IN Certification of patient admission REQUIRED AT TIME OF ADMISSION. I CERTIFY THAT POST-HOSPITAL ECF SERVICES ARE REQUIRED TO BE GIVEN ON AN IN-PATIENT BASIS BECAUSE OF THE ABOVE NAMED PATIENT'S NEED FOR USP CARE ON A CONTINUING BASIS FOR THE CONDITION(S) FOR WHICH HE/SHE WAS RECEIVING IN-PATIENT HOSPITAL SERVICES PRIOR TO HIS/HER TRANSFER TO THE [facility]. 06/09/25 1622<Electronically signed by Dex Worrell DO> Diet Diet Order/Speech Therapy: INPATIENT Hospital [...] patient, she will need temporary placement in prison facility for short-term skilledservices #9 gastric ulcer-patient [...] morphine Adverse Reaction (Verified 06/03/25 02:30) Nausea Xulvzzm-LRD-DuU Reductase Inhibitor (Ttyfowr-Rmi-Zpk Reductase Inhibitor) Adverse Reaction (Verified 06/03/25 02:30) Nausea Procedures: None Type of Care/Length of Stay Estimated LOS: Convalescent Care Less Than 30 days Type of Care Needed: Skilled Rehab Potential: Fair Prognosis: Fair Additional Orders/Day of Discharge Day of Discharge: 06/09/25 Dietary and Speech Recommendations Dietitian Recommendations/Changes: Continue Regular diet with fdxc-eb-npas foods; thin liquids Continue 120ml EPHP TID with medpass. Will continue to monitor weight trends. Discharge Plan Admission Admit Date/Time: 06/03/25 07:37 Primary Reason for Your Visit: Right-sided heart failure, acute anemia Attending Provider: Dex Worrell Primary Care Provider: Daron Benton Consulting Providers: Roman Mckeon Instructions Additional Instructions / Restrictions: Consider resuming Eliquis 5 mg bid in two weeks if the patient accepts the risk vs the benefits of the medicine Discharge Orders/Prescriptions Prescriptions: New Ensure Plus High Protein 0.08 gram-1.5 kcal/mL Liquid 120 ml PO TIDCM Qty: 11952 0RF pantoprazole [Protonix] 40 mg tablet,delayed release [...] mg PO QDAY Referrals / Follow Up: Daron Benton MD [Primary Care Provider] - Disposition Disposition (needs filled in before D/C Order can be placed): Home Health Service 06/09/25 1622 <Electronically signed by Dex Worrell DO> Cosigner Signature (if applicable): CC: Dr. Roman Mckeon MD; Dr. Daron Benton MD ~ [facility] Work Phone: 1([phone]) 446-995107-22-2025 [facility]07-22-2025 Hospital Discharge instructionsAdditional Instructions Consider resuming Eliquis 5 mg bid in two weeks if the patient accepts the risk vs the benefits of the medicine Date of Discharge: 06/09/25[facility] Work Phone: 1(572) 987-261007-21-2025 Progress note Author Dex [facility] hospital[facility] Note Date/Time June 08, 2025 8:13 pm [facility] Medical Records Department [address] [place] [address] Progress Note - Hospitalist 06/08/251943 MR#: [id number] Acct: [id number] Name: ANGÉLICA YO Rep #:[id number] 4 : 1955 69 From: Dex Worrell DO PCP: Dr. Daron Benton MD Status:ADM IN Location: [place] [address] Reason for Visit Chief Complaint: Bilateral lower [...] 06/03/25 14:52 SB (Rec: 06/03/25 14:52 SB [id number]) Nutrition Malnutrition Evidence of Yes Malnutrition Exists [...] 86.9 H, Lymph % (Auto) 5.5 L, Catahoula % (Auto) 5.2, Eos % (Auto) 1.4, [...] and left parietal lobes, unchanged. Reading Location: [facility] Chest CT 06/07/25 20:07 IMPRESSION: 1. Interlobular septal thickening with diffuse bronchial wall thickening and consolidation at the posterior lung bases, which may represent some combination of pulmonary edema, atelectasis, and/or infection/inflammation. 2. Moderate right and small left pleural effusions. 3. Enlarged main pulmonary artery suggestive of pulmonary hypertension. 4. Mild thoracic lymphadenopathy is likely reactive. Reading Location: [facility] Physical Exam Const alert and no apparent [...] patient, she will need temporary placement in prison facility for short-term skilledservices Total clinical time spent by myself addressing the patient's medical issues, reviewing all of her data, and collaborating with patient's care team: 50 minutes Charges/Coding Visit Charges Inpatient E&M: 15446 Subs Hosp L3 06/08/252012 <Electronically signed by Dex Worrell DO> Cosigner Signature (if applicable): CC: ~ Signed [facility] Work Phone: 1(249) 176-695007-20-2025 Radiology Diagnostic study [facility]07-20-2025 Radiology Diagnostic study [facility]07-20-2025 Discharge summary Author Roman Mckeon [facility] Note Date/Time June 07, 2025 11:0 2am [facility] Medical Records Department [address] [place] [address] Discharge Summary 06/07/25 1052 MR#: [id number] Acct: [id number] Name: ANGÉLICA YO Rep #:[id number] 8 : 1955 69 From: Roman Mckeon MD PCP: Dr. Daron Benton MD Status:ADM IN Location: [place] [address] Providers Date of Admission: 06/03/25 Date of Discharge: 06/07/25 Primary Care Physician: Dr. Daron Benton MD Consultations 06/03/25 08:34 Consult: Gastroenterology Routine Consulting Provider: [facility] Reason for Consult: GI bleed EMERGENT [...] ? Requested for PT OT eval and social work instructor to assist with discharge planning. Patient may benefit from going to prison facility Time spent in the patient's overall [...] Document 06/03/25 14:52 SB (Rec: 06/03/25 14:52 [id number]) Nutrition Malnutrition Evidence of Yes Malnutrition Exists [...] Roman Mckeon Primary Care Provider: Daron Benton Discharge Orders/Prescriptions Prescriptions: New Ensure Plus High Protein 0.08 gram-1.5 kcal/mL Liquid 120 ml PO TIDCM Qty: 29618 0RF pantoprazole [Protonix] 40 mg tablet,delayed release [...] Qty: 180 3RF Referrals / Follow Up: Daron Benton MD [Primary Care Provider] - Disposition Disposition (needs filled in before D/C Order can be placed): Home Health Service Charges/Coding Visit Charges Inpatient E&M: 32374 Disch Hosp >30min 06/07/25 1102 <Electronically signed by Roman Mckeon MD> Cosigner Signature (if applicable): CC: Dr. Roman Mckeon MD; Dr. Daron Benton MD~ Signed [facility] Work Phone: 1([phone]) 854-378307-20-2025 Progress note Author Roman Mckeon [facility] Note Date/Time June 07, 2025 10:1 4am [facility] Medical Records Department [address] [place] [address] Progress Note - Hospitalist 06/07/25 0907 MR#: [id number] Acct: [id number] Name: ANGÉLICA YO Rep #:[id number] 7 : 1955 69 From: Roman Mckeon MD PCP: Dr. Daron Benton MD Status:ADM IN Location: [place] [address] 1 Reason for Visit Chief Complaint: Bilateral [...] 06/03/25 14:52 SB (Rec: 06/03/25 14:52 SB [id number]) Nutrition Malnutrition Evidence of Yes Malnutrition Exists [...] ? Requested for PT OT eval and social work instructor to assist with discharge planning. Patient may benefit from going to prison facility Time spent in the patient's overall evaluation,decision-making process, review of diagnostic data, adjustment of management, discussion with other providers, nursing nursing and ancillary staff involved in patient's care documentation 38 Minutes Charges/Coding Visit Charges Inpatient E&M: 76852 Subs Hosp L2 06/07/25 1014 <Electronically signed by Roman Mckeon MD> Cosigner Signature (if applicable): CC: ~ Signed [facility] Work Phone: [phone]) 537-366307-20-2025 [facility]07-19-2025 Progress note Author Roman Mckeon [facility] Note Date/Time June 06, 2025 12:1 5pm [facility] Medical Records Department [address] [place] [address] Progress Note - Hospitalist 06/06/25 1208 MR#: [id number] Acct: [id number] Name: ANGÉLICA YO Rep #:[id number] 6 : 1955 69 From: Roman Mckeon MD PCP: Dr. Daron Benton MD Status:ADM IN Location: [place] [address] Reason for Visit Chief Complaint: Bilateral lower [...] 06/03/25 14:52 SB (Rec: 06/03/25 14:52 SB [id number]) Nutrition Malnutrition Evidence of Yes Malnutrition Exists [...] % (Auto) 65.3, Lymph % (Auto) 19.0, Catahoula % (Auto) 10.7 H, Eos % (Auto) [...] 40 Minutes Charges/Coding Visit Charges Inpatient E&M: 67308 Subs Hosp L2 06/06/25 1215 <Electronically signed by Roman Mckeno MD> Cosigner Signature (if applicable): CC: ~ Signed [facility] Work Phone: 1(441) 822-359007-18-2025 Consult note Author Zaki Levin [facility] Note Date/Time June 05, 2025 4:09 pm [facility] Medical Records Department [address] [place] [address] Anesthesia Postop Eval II 06/05/25 1609 MR#: [id number] Acct: [id number] Name: ANGÉLICA YO Rep #:[id number] 2 : 1955 69 From: Zaki JOINER PCP: Dr. Daron Benton MD Status:ADM IN Y Race: C Location: [address] Anesthesia Postop Eval I Sum Postop Eval Completion status Anesthesia document: Postop Eval 1 completed: No Anesthesia Postop Eval I Summary Anesthesia Postop Eval I Summary: Anesthesia Postop Eval I: Assessment Summary Airway patent No 06/05/25 16:05 DENTURE PACKER.MDOT Spontaneous unlabored No 06/05/25 16:05 DENTURE PACKER.MDOT respirations Mental status Awake,Calm 06/05/25 16:05 DENTURE PACKER.MDOT nausea No 06/05/25 16:05 DENTURE PACKER.MDOT Vomiting No 06/05/25 16:05 DENTURE PACKER.MDOT Anesthesia Postop Eval I: Fluid Summary Crystalloid volume administer 100 06/05/25 16:05 DENTURE PACKER.MDOT (ml) Colloids volume administered ( ml) Blood Product volume administered (ml) Total IV fluid infused 100 07/18/25 16:05 SONIA Anesthesia Postop Eval I: Summary Notes Anesthesia Complication No 06/05/25 16:05 SONIA Anesthesia Complication Comment: Post-operative progress note Anesthesia: Postop Eval II Evaluation Mental status: Awake and Calm Pain Level: 0 nausea: No Vomiting: No Complications Anesthesia Complication: No 06/05/25 1609 <Electronically signed by Zaki Levin CRNA> Date _ Zaki Levin CRNA Cosigner Signature: Date CC: ~ Signed [facility] Work Phone: 1(605) 128-584207-18-2025 Consult note Author Zaki Levin [facility] Note Date/Time June 05, 2025 4:05 pm [facility] Medical Records Department [address] [place] [address] Anesthesia Postop Eval I 06/05/251604 MR#: [id number] Acct: [id number] Name: ANGÉLICA YO Rep #:[id number] 7 : 1955 69 From: Zaki Nicholas RNA PCP: Dr. Daron Benton MD Status:ADM IN Y Race: C Location: [place] [address] Anesthesia: Postop Eval I Current Vital Signs [...] Zaki Levin CRNA> Date _ Zaki Levin NEGAR Vanegasignsarah Signature: Date CC: ~ Signed [facility] Work Phone: 1([phone]) 764-440707-18-2025 Consult note Author Zaki Levin [facility] Note Date/Time June 05, 2025 3:50 pm [facility] Medical Records Department [address] [facility] [place] [address] Pre-Anesthesia Evaluation 06/05/25 1549 MR#: [id number] Acct: [id number] Name: ANGÉLICA YO Rep #:[id number] 0 : 1955 69 From: Zaki JOINER PCP: Dr. 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 Hx Hospitalization No 04/15/21 11:49 Any Problems [...] take am of surgery PONV PONV - 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: PONV - 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 Female HX of Motion Sickness HX of N/V After Surgery Non-Smoker Duration of Surgery greater than 60 minutes Number of Risk Factors PONV Score Height & Weight Height & Weight: Anesthesia: Height & Weight Height 5 ft 5 in 06/03/25 23:06 Weight: 47 kg 06/05/25 05:10 Body Mass Index (BMI) 17.2 06/05/25 05:10 Respiratory Assessment Respiratory Assessment - 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: Respiratory Tract Infection Hx - 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 Hx Respiratory Tract Infection No 06/03/25 23:05 STOP Sleep Apnea STOP Sleep Apnea - 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: STOP Sleep Apnea - 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 Hx Hypertension Yes 06/03/25 08:49 Hx Sleep [...] Tobacco Use History Tobacco Use History - 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: Tobacco Use History - 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 Tobacco Use Smoking Status Current every day smoker 06/04/25 14:35 Hx Tobacco Use Yes 06/03/25 08:49 Years Smoking 30 06/03/25 08:49 Packs Smoked per Day 0.5 06/03/25 08:49 Smoking Cessation Date was within the last 15 years Hx Smoking Cessation Date Hx Smoking Cessation No 06/03/25 08:49 Counseling Hematologic Medial History Hematologic Hx - 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: 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 Specify any problems Hx of Preganancy in last 3 N/A 06/03/25 08:49 Months Nurse Filling Out Transfusion HHARTZLER 06/03/25 08:49 & Questions: Date: 06/03/25 06/03/25 08:49 Time: 08:52 06/03/25 08:49 Patient unable to answer at this time (ie. confused, unrespo /Reproduction History /Reproductive History - 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: /Reproductive 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 Hx Now No 06/03/25 23:05 Gestational Age [...] mls/hr 06/03/25 08:54 06/05/25 13:12 IV Infused .[id number] PRN Infusion Saline Flush Sodium Chloride 250 mls @ 15 mls/hr 06/03/25 08:54 IV .[id number] PRN Additional IVPB Infusion Sodium Chloride 250 mls @ 15 mls/hr 06/04/25 15:58 IV .I45A32K PRN Saline Flush Sodium Chloride 250 mls @ 15 mls/hr 06/04/25 15:58 IV .U51S30H PRN Additional IVPB Infusion Sodium Chloride 250 mls @ 15 mls/hr 06/05/25 08:29 IV .O28T41R PRN Saline Flush Sodium Chloride 250 mls @ 15 mls/hr 06/05/25 08:29 IV .O97N81O PRN Additional IVPB Infusion Lactated Ringer's 1,000 [...] (dyspnea on exertion) Atherosclerotic heart disease of [place] coronary artery without angina pectoris Cardiac murmur [...] PO QDAY bp 05/13/25 U nknown History lisinopril 10 mg tablet [...] Stomach morphine AdvReac Nausea Verified 06/03/25 02:30 Vpwjjkx-PXU-EoO Reductase AdvReac Nausea Verified 06/03/25 02:30 Inhibitor (Cspkszk-Giw-Gsg Reductase Inhibitor) Family History Mother Cancer CAD [...] by Zaki Levin CRNA> Date _ Zaki Vanegasigner Signature: Date CC: ~ Signed [facility] Work Phone: 1([phone]) 489-402407-18-2025 Progress note Author Kevin Gonzalez [facility] Note Date/Time June 05, 2025 3:14 pm [facility] Medical Records Department [address] [place] [address] Progress Note 06/05/25 1512 MR#: [id number] Acct: [id number] Name: ANGÉLICA YO Rep #:[id number] 2 : 1955 69 From: Kevin Gonzalez DO PCP: Dr. Daron Benton MD Status:ADM IN Location: [place] [address] Progress Note Patient has been n.p.o. for [...] ASA of 3. Visit Charges Inpatient E&M: 08898 Subs Hosp L2 06/05/25 3927 <Electronically signed by Kevin Gonzalez DO> Kevin Gonzalez DO Cosign Signature (if applicable): CC: ~ Signed [facility] Work Phone: 1([phone]) 964-475007-18-2025 Procedure [facility] 06-05-2025 Procedure [facility]07-18-2025 Progress note Author Roman Mckeon [facility] Note Date/Time June 05, 2025 11:3 1am [facility] Medical Records Department [address] [place] [address] Progress Note - Hospitalist 06/05/25 0749 MR#: [id number] Acct: [id number] Name: ANGÉLICA YO Rep #:[id number] 4 : 1955 69 From: Roman Mckeon MD PCP: Dr. Daron Benton MD Status:ADM IN Location: [place] [address] 1 Reason for Visit Chief Complaint: Bilateral [...] 06/03/25 14:52 SB (Rec: 06/03/25 14:52 SB [id number]) Nutrition Malnutrition Evidence of Yes Malnutrition Exists [...] 76.6 H, Lymph % (Auto) 9.9 L, Catahoula % (Auto) 10.1 H, Eos % (Auto) [...] and ancillary staff involved in patient's care [id number] Minutes Charges/Coding Visit Charges Inpatient E&M: 00050 Subs Hosp L3 06/05/25 1131 <Electronically signed by Roman Mckeon MD> Cosigner Signature (if applicable): CC: ~ Signed [facility] Work Phone: 1([phone]) 316-992907-17-2025 Progress note Author Kevin Gonzalez [facility] Note Date/Time June 04, 2025 5:47 pm [facility] Medical Records Department [address] [place] [address] Progress Note 06/04/25 1746 MR#: [id number] Acct: [id number] Name: ANGÉLICA YO Rep #:[id number] 5 : 1955 69 From: Kevin Gonzalez DO PCP: Dr. Daron Benton MD Status:ADM IN Location: [place] [address] Progress Note Patient was supposed to get [...] n.p.o. past midnight. Visit Charges Inpatient E&M: 15697 Init Hosp L3 06/04/251746 <Electronically signed by Kevin Gonzalez DO> Kevin Gonzalez DO Cosigner Signature (if applicable): CC: ~ Signed ADDENDUM by Kevin Gonzalez DO on 06/04/25 at 1747 Visit Charges Inpatient E&M: 84085 Subs Hosp L3 06/04/251746 <Electronically signed by Kevin llanos DO> Date _ Kevin Gonzalez DO Cosigner Signature (if applicable): Date cc: ~* Signed [facility] Work Phone: 1(643) 305-567707-17-2025 Progress note Author Roman Mckeon [facility] Note Date/Time June 04, 2025 8:38 am [facility] Medical Records Department [address] [place] [address] Progress Note - Hospitalist 06/04/25 0834 MR#: [id number] Acct: [id number] Name: ANGÉLICA YO Rep #:[id number] 3 : 1955 69 From: Roman Mckeon MD PCP: Dr. Daron Benton MD Status:ADM IN Location: [place] [address] Reason for Visit Chief Complaint: Bilateral lower [...] 06/03/25 14:52 SB (Rec: 06/03/25 14:52 SB [id number]) Nutrition Malnutrition Evidence of Yes Malnutrition Exists [...] % (Auto) 68.8, Lymph % (Auto)14.1 L, Catahoula % (Auto) 12.9 H, Eos % (Auto) [...] and ancillary staff involved in patient's care [id number] Minutes Charges/Coding Visit Charges Inpatient E&M: 47680 Subs Hosp 06/04/25 0838 <Electronically signed by Roman Mckeon MD> Cosigner Signature (if applicable): CC: ~ Signed [facility] Work Phone: [phone]) 832-591807-16-2025 Consult note Author Kevin Gonzalez [facility] Note Date/Time June 03, 2025 4:15 pm [facility] Medical Records Department [address] [place] [address] Consultation - GI 06/03/25 1609 MR#: [id number] Acct: [id number] Name: ANGÉLICA YO Rep #:[id number] 7 : 1955 69 From: Kevin Gonzalez DO PCP: Dr. Daron Benton MD Status:ADM IN Location: [place] [address] HPI Consult Data Date of Consult: 06/03/25 [...] history of CAD and carotid artery disease. [facility] Medical History Hypertensive emergency NSTEMI, initial episode [...] (dyspnea on exertion) Atherosclerotic heart disease of [place] coronary artery without angina pectoris Cardiac murmur [...] Stomach morphine AdvReac Nausea Verified 06/03/25 02:30 Rlrhyoa-TGK-SaS Reductase AdvReac Nausea Verified 06/03/25 02:30 Inhibitor (Ubiqlyk-Uih-Znz Reductase Inhibitor) Family History Mother Cancer CAD [...] 06/03/25 14:52 SB (Rec: 06/03/25 14:52 SB [id number]) Nutrition Malnutrition Evidence of Yes Malnutrition Exists [...] (Auto) 69.4, Lymph % (Auto) 13.4 L, Catahoula % (Auto) 14.0 H, Eos % (Auto) [...] 03:20 IMPRESSION: Small right effusion. Reading Location: [place] [address] Assessment & Plan Assessment/Plan (1) Symptomatic anemia: [...] will have an ASA of 3. 06/03/25 1615 <Electronically signed by Kevin Friend DO> Cosigner Signature (if applicable): CC: Dr. Daron Benton MD~ Signed [facility] Work Phone: [phone]) 799-801507-16-2025 History and physical note Author Roman [facility] Note Date/Time June 03, 2025 9:34 am [facility] Medical Records Department [address] [place] [address] H&P Exam - Hospitalist 06/03/25 0739 MR#: [id number] Acct: [id number] Name: ANGÉLICA YO Rep #:[id number] 3 : 1955 69 From: Roman Mckeon MD PCP: Dr. Daron Benton MD Status:ADM IN Location: [place] [id number] HPI - General General Date of Admission: [...] to a monitored bed for further manage [facility] Medical History (Updated 06/03/25 @ 09:01 by [...] (dyspnea on exertion) Atherosclerotic heart disease of [place] coronary artery without angina pectoris Cardiac murmur [...] Stomach morphine AdvReac Nausea Verified 06/03/25 02:30 Jziphcz-BSH-CcA Reductase AdvReac Nausea Verified 06/03/25 02:30 Inhibitor (Uiqcyob-Spn-Hgm Reductase Inhibitor) Family History Mother Cancer CAD [...] (Auto) 69.4, Lymph % (Auto) 13.4 L, Catahoula % (Auto) 14.0 H, Eos % (Auto) [...] 03:20 IMPRESSION: Small right effusion. Reading Location: [place] [address] Assessment & Plan Assessment/Plan (1) Anemia: (2) [...] Multi Select Codes Visit Charges Visit Charges: 51507 Init Hosp L3 Hospitalists' Procedures Procedures: 50609 Advncd Care Plan 30 Min 06/03/25 9290 <Electronically signed by Roman Mckeon MD> Cosigner Signature (if applicable): CC: Dr. Roman Mckeon MD; Dr. Daron Benton MD~ Signed [facility] Work Phone: 1(354) 567-442107-16-2025 Discharge summary Author Yasmani Haynes [facility] Note Date/Time June 03, 2025 7:47 am [facility] Medical Records Department [address] [place] [address] Emergency Department Summary 06/03/25 MR#: [id number] Acct: [id number] Name: ANGÉLICA YO Rep #:[id number] 3 : 1955 69 From: Yasmani Haynes [...] the persistent pain comes in for evaluation. [facility] Medical History Hypertensive emergency NSTEMI, initial episode of care Emphysema of lung Smoking greater than 30 pack years New onset atrial fibrillation [place] (dyspnea on exertion) Atherosclerotic heart disease of [place] coronary artery without angina pectoris Cardiac murmur [...] Stomach morphine AdvReac Nausea Verified 06/03/25 02:30 Hmvwaem-DXJ-CqL Reductase AdvReac Nausea Verified 06/03/25 02:30 Inhibitor (Upfkzgf-Mtm-Kth Reductase Inhibitor) Family History Mother Cancer CAD [...] of blood. The case was discussed with mechatronics technologist/Dr. Gonzalez. He states that with her anemia [...] (Auto) 69.4 Lymph % (Auto) 13.4 L Catahoula % (Auto) 14.0 H Eos % (Auto) [...] 03:20 IMPRESSION: Small right effusion. 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 What to do if you have Problems For any increased pain, shortness of breath, bleeding, nausea or vomiting, chestpain, or any unexpected problems, contact your Primary Care Provider. Call [facility] ([phone]) or report to the closest Emergency Room. Call 911 if necessary. 06/03/25 0747 <Electronically signed by Yasmani Haynes DO> Cosigner Signature (if applicable): CC: Dr. Daron Benton MD ~ Signed [facility] Work Phone: 1(246) 370-998307-16-2025 Radiology Diagnostic study [facility]06-27-2025 Radiology Diagnostic study [facility]06-18-2025 Telephone encounter Note* Telephone Encounter - Maeve [place] - 05/06/2025 1:48 PM EDT Faxed New Auth to [facility] @ [phone], Valid 05/06/25 Thru 07/05/25 Brain MRI wo Contrast. [id number] Miscellaneous Notes* Telephone Encounter - Maeve [place] - 05/06/2025 1:48 PM EDT Faxed New Auth to [facility] @ [phone], Valid 05/06/25 Thru 07/05/25 Brain MRI wo Contrast. * Telephone Encounter - Madelin Olvera - 05/05/2025 2:39 PM EDT Name of caller: [facility] Contact phone number: [phone] Relationship to Patient: Imaging Provider: Robert Practice: neuro Chief Complaint/Reason for Call: Viki states patients prior auth is expiring and will need a new one for patient schedule MRI on 05/20 @130 fax # [phone]. documented in this encounterSOhio State University [facility] Medical CenterGaqsni56-84-7464 Telephone encounter Note* Telephone Encounter - Madelin Olvera - 05/05/2025 2:39 PM EDT Name of caller: [facility] Contact phone number: [phone] Relationship to Patient: Imaging Provider: Robert Practice: neuro Chief Complaint/Reason for Call: Viki states patients prior auth is expiring and will need a new one for patient schedule MRI on 05/20 @130 fax # [phone]. [id number] Telephone encounter Note* Telephone Encounter - ANTWON Harrington CNP - 04/24/2025 1:24 PM EDT Baclofen 20mg sent to Sp in [place]. [facility] HospitalWkhypl26-48-3563 Miscellaneous Notes* Telephone Encounter - ANTWON Harrington CNP - 04/24/2025 1:24 PM EDT Baclofen 20mg sent to Sp in [place]. * Telephone Encounter - Jeni Crook - 04/24/2025 12:21 PM EDT Name of caller: Angélica Contact phone number: [phone] Relationship to Patient: patient Provider: AURORA Lynn Practice: Neurology Chief Complaint/Reason for Call: Angélica advised that she just got out of the hospital, and she needsher Baclofen script sent in to her [facility] - [place], [place] - [address] [[id number]]. She does not use the [facility] any longer, and she is completely out. Best time of day caller can be reached: any Patient advised that office/PCP has 24-48 business hours to return their call: Yes documented in this encounterSOhio State University Wexner Medical CenterUiqfgj03-24-7549 Telephone encounter Note* Telephone Encounter - Jeni Crook - 04/24/2025 12:21 PM EDT Name of caller: Angélica Contact phone number: [phone] Relationship to Patient: patient Provider: AURORA Lynn Practice: Neurology Chief Complaint/Reason for Call: Angélica advised that she just got out of the hospital, and she needsher Baclofen script sent in to her [facility] - [place], [place] - [address] [[id number]]. She does not use the [facility] any longer, and she is completely out. Best time of day caller can be reached: any Patient advised that office/PCP has 24-48 business hours to return their call: Yes [facility] HospitalIiwpzp20-15-4676 Discharge summary Author Roman Mckeon [facility] Note Date/Time April 22, 2025 2:21p [facility] Medical Records Department [address] [place] [address] Discharge Summary 04/22/25 1411 MR#: [id number] Acct: [id number] Name: ANGÉLICA YO Rep #:[id number] 9 : 1955 69 From: Roman Mckeon MD PCP: Dr. Daron Benton MD Status:ADM IN Location: [facility] [id number] Providers Date of Admission: 04/18/25 Primary Care Physician: Dr. Daron Benton MD Consultations 04/19/25 08:12 Consult: Gastroenterology Routine Consulting Provider: [facility] Reason for Consult: GI Bleed EMERGENT [...] Health Service Charges/Coding Visit Charges Inpatient E&M: 97840 Disch Hosp >30min 04/22/25 1421 <Electronically signed by Roman Mckeon MD> Cosigner Signature (if applicable): CC: Dr. Roman Mckeon MD; Dr. Daron Benton MD~ Signed [facility] Work Phone: 1(450) 698-314906-04-2025 Consult note Author Benjamin Cm [facility] Note Date/Time April 22, 2025 1:30p m [facility] Medical Records Department [address] [place] [address] Anesthesia Postop Eval I 04/22/25 1329 MR#: [id number] Acct: [id number] Name: ANGÉLICA YO Rep #:[id number] 3 : 1955 69 From: Benjamin Cm PCP: Dr. Daron Benton MD Status:ADM IN Y Race: C Location: LA3 LA305 -1 Anesthesia: Postop Eval I Current Vital [...] Cm Cosigner Signature: Date CC: ~ Signed [facility] Work Phone: 1(987) 652-932906-04-2025 Progress note Author Kevin Friend [facility] Note Date/Time April 22, 2025 12:31 pm [facility] Medical Records Department [address] [place] [address] Progress Note 04/22/25 1230 MR#: [id number] Acct: [id number] Name: ANGÉLICA YO Rep #:[id number] 2 : 1955 69 From: Kevin Gonzalez DO PCP: Dr. Daron Benton MD Status:ADM IN Location: [place] [address] Progress Note The patient underwent NG tube [...] ASA of 3. Visit Charges Inpatient E&M: 57119 Subs Hosp L2 04/22/25 1231 <Electronically signed by Kevin Gonzalez DO> Kevin Gonzalez DO Cosigner Signature (if applicable): CC: ~ Signed [facility] Work Phone: 1(379) 525-452106-04-2025 [facility]06-04-2025 Procedure [facility]06-04-2025 Procedure [facility]06-04-2025 Consult note Author Aime Covarrubias [facility] Note Date/Time April 22, 2025 11:17 am [facility] Medical Records Department [address] [place] [address] Pre-Anesthesia Evaluation 04/22/25 1116 MR#: [id number] Acct: [id number] Name: ANGÉLICA YO Rep #:[id number] 4 : 1955 69 From: Aime Covarrubias MD PCP: Dr. 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 Hx Hospitalization No 04/15/21 11:49 Any Problems [...] take am of surgery PONV PONV - 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: PONV - 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 Female HX of Motion Sickness HX of N/V After Surgery Non-Smoker Duration of Surgery greater than 60 minutes Number of Risk Factors PONV Score Height & Weight Height & Weight: Anesthesia: Height & Weight Height 5 ft 5 in 04/21/25 15:30 Weight: 45.7 kg 04/21/25 15:30 Body Mass Index (BMI) 16.7 04/21/25 15:30 Respiratory Assessment Respiratory Assessment - 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: Respiratory Tract Infection Hx - 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 Hx Respiratory Tract Infection No 02/24/24 23:50 STOP Sleep Apnea STOP Sleep Apnea - 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: STOP Sleep Apnea - 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 Hx Hypertension Yes 04/18/25 21:53 Hx Sleep [...] Tobacco Use History Tobacco Use History - 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: Tobacco Use History - 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 Tobacco Use Smoking Status Light Smoker (<10/day) 04/20/25 21:39 Hx Tobacco Use Yes 04/18/25 21:53 Years Smoking Packs Smoked per Day Smoking Cessation Date was within the last 15 years Hx Smoking Cessation Date Hx Smoking Cessation No 04/18/25 21:53 Counseling Hematologic Medial History Hematologic Hx - 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: 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 Hx of Blood Transfusion Yes 04/18/25 21:53 [...] confused, unrespo /Reproduction History /Reproductive History - 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: /Reproductive 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 Hx Now Gestational Age (in weeks): EDC: [...] Capsule (5,000 Units) PO Not Given DAILY [facility] Docusate Sodium 100 mg 04/18/25 22:00 04/22/25 [...] mls @ 15 mls/hr 04/18/25 21:41 IV .[id number] PRN Saline Flush Sodium Chloride 250 mls @ 15 mls/hr 04/18/25 21:41 IV .[id number] PRN Additional IVPB Infusion Pantoprazole Sodium 40 mg/ 100 mls @ 330 mls/hr 04/18/25 21:57 04/22/25 09:55 Sodium Chloride IV 330 mls/hr Q24 VIMAL Administration Lactated Ringer's 1,000 mls @ 15 mls/hr 04/20/25 13:00 04/21/25 15:37 IV 15 mls/hr .Q48H VIMAL Administration Lactated Ringer's 1,000 mls @ 15 mls/hr 04/22/25 11:15 IV .Q48H VIMAL Ipratropium [place] 2 spray 04/19/25 07:17 Ipratropium [place] 0.06% Nasal [place] NASAL TID PRN allergy symptoms Levothyroxine Sodium 50 mcg 04/19/25 06:00 04/22/25 05:14 Levothyroxine 50 Mcg Tablet PO Not Given DAILY@0600 [facility] Nutritional Formula (Lactose Free) 120 ml 04/19/25 08:00 04/22/25 07:18 Ensure Clear 120 Ml Liquid PO Not Given TIDCM [facility] Oxycodone HCl 10 mg 04/19/25 07:19 04/22/25 [...] (dyspnea on exertion) Atherosclerotic heart disease of [place] coronary artery without angina pectoris Cardiac murmur [...] Stomach morphine AdvReac Nausea Verified 04/18/25 18:19 Hnembhs-JRX-IlW Reductase AdvReac Nausea Verified 04/18/25 18:19 Inhibitor (Dsdmjaa-Yph-Ltq Reductase Inhibitor) Family History Mother Cancer CAD [...] MD Cosigner Signature: Date CC: ~ Signed [facility] Work Phone: 1(546) 913-981406-04-2025 Progress note Author Roman Mckeon [facility] Note Date/Time April 22, 2025 8:32a m [facility] Medical Records Department [address] [place] [address] Progress Note - Hospitalist 04/22/25 0713 MR#: [id number] Acct: [id number] Name: ANGÉLICA YO Rep #:[id number] 0 : 1955 69 From: Roman Mckeon MD PCP: Dr. Daron Benton MD Status:ADM IN Location: [address] Reason for Visit Reason for Visit: Diagnoses [...] pain regimen Charges/Coding Visit Charges Inpatient E&M: 99407 Subs Hosp L2 04/22/25 0832 <Electronically signed by Roman Mckeon MD> Cosigner Signature (if applicable): CC: ~ Signed [facility] Work Phone: 1(983) 183-279606-03-2025 Consult note Author Zaki Levin [facility] Note Date/Time April 21, 2025 5:01p m [facility] Medical Records Department [address] [place] [address] Anesthesia Postop Eval II 04/21/25 1700 MR#: [id number] Acct: [id number] Name: ANGÉLICA YO Rep #:[id number] 2 : 1955 69 From: Zaki JOINER PCP: Dr. Daron Benton MD Status:ADM IN Y Race: C Location: MS3 MS305 -1 Anesthesia Postop Eval I Sum Postop Eval Completion status Anesthesia document: Postop Eval 1 completed: Yes Anesthesia Postop Eval I Summary Anesthesia Postop Eval I Summary: Anesthesia Postop Eval I: Assessment Summary Airway patent Yes 04/21/25 16:57 DENTURE PACKER.MDOT Spontaneous unlabored Yes 04/21/25 16:57 DENTURE PACKER.MDOT respirations Mental status Awake,Calm 04/21/25 16:57 DENTURE PACKER.MDOT nausea No 04/21/25 16:57 DENTURE PACKER.MDOT Vomiting No 04/21/25 16:57 DENTURE PACKER.MDOT Anesthesia Postop Eval I: Fluid Summary Crystalloid volume administer 100 04/21/25 16:57 DENTURE PACKER.MDOT (ml) Colloids volume administered ( ml) Blood Product volume administered (ml) Total IV fluid infused 100 04/21/25 16:57 DENTURE PACKER.MDOT Anesthesia Postop Eval I: Summary Notes Anesthesia Complication No 04/21/25 16:57 DENTURE PACKER.MDOT Anesthesia Complication Comment: Post-operative progress note Anesthesia: Postop Eval II Evaluation Mental status: Awake and Calm Pain Level: 0 nausea: No Vomiting: No Complications Anesthesia Complication: No 04/21/25 1701 <Electronically signed by Zaki Levin CRNA> Date _ Zaki Levin CRNA Cosigner Signature: Date CC: ~ Signed [facility] Work Phone: 1(861) 681-708206-03-2025 Consult note Author Zaki Levin [facility] Note Date/Time April 21, 2025 4:57p [facility] Medical Records Department [address] [place] [address] Anesthesia Postop Eval I 04/21/25 1656 MR#: [id number] Acct: [id number] Name: ANGÉLICA YO Rep #:[id number] 8 : 1955 69 From: Zaki JOINER PCP: Dr. Daron Benton MD Status:ADM IN Y Race: C Location: [place] [address] Anesthesia: Postop Eval I Current Vital Signs [...] document: Postop Eval 1 completed: Yes 04/21/25 9278 <Electronically signed by Zaki Levin CRNA> Date _ Zaki Levin CRNA Cosigner Signature: Date CC: ~ Signed [facility] Work Phone: 1(692) 902-265206-03-2025 Progress note Author Kevin Friend [facility] Note Date/Time April 21, 2025 4:16p m [facility] Medical Records Department [address] [place] [address] Progress Note 04/21/25 1615 MR#: [id number] Acct: [id number] Name: ANGÉLICA YO Rep #:[id number] 8 : 1955 69 From: Kevin Gonzalez DO PCP: Dr. Daron Benton MD Status:ADM IN Location: [place] [address] Progress Note Patient is n.p.o. for EGD [...] prep is complete. Visit Charges Inpatient E&M: 18610 Subs Hosp L3 04/21/25 1616 <Electronically signed by Keivn Gonzalez DO> Kevin Gonzalez DO Cosigner Signature (if applicable): CC: ~ Signed [facility] Work Phone: 1(971) 333-752106-03-2025 Consult note Author Storm Gómez [facility] Note Date/Time April 21, 2025 3:54p m [facility] Medical Records Department [address] [place] [address] Pre-Anesthesia Evaluation 04/21/25 1549 MR#: [id number] Acct: [id number] Name: ANGÉLICA YO Rep #:[id number] 7 : 1955 69 From: Storm Gómez MD PCP: Dr. 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 Hx Hospitalization No 04/15/21 11:49 Any Problems [...] take am of surgery PONV PONV - 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: PONV - 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 Female HX of Motion Sickness HX of N/V After Surgery Non-Smoker Duration of Surgery greater than 60 minutes Number of Risk Factors PONV Score Height & Weight Height & Weight: Anesthesia: Height & Weight Height 5 ft 5 in 04/21/25 15:30 Weight: 45.7 kg 04/21/25 15:30 Body Mass Index (BMI) 16.7 04/21/25 15:30 Respiratory Assessment Respiratory Assessment - 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: Respiratory Tract Infection Hx - 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 Hx Respiratory Tract Infection No 02/24/24 23:50 STOP Sleep Apnea STOP Sleep Apnea - 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: STOP Sleep Apnea - 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 Hx Hypertension Yes 04/18/25 21:53 Hx Sleep [...] Tobacco Use History Tobacco Use History - 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: Tobacco Use History - 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 Tobacco Use Smoking Status Light Smoker (<10/day) 04/20/25 21:39 Hx Tobacco Use Yes 04/18/25 21:53 Years Smoking Packs Smoked per Day Smoking Cessation Date was within the last 15 years Hx Smoking Cessation Date Hx Smoking Cessation No 04/18/25 21:53 Counseling Hematologic Medial History Hematologic Hx - 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: 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 Hx of Blood Transfusion Yes 04/18/25 21:53 [...] confused, unrespo /Reproduction History /Reproductive History - 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: /Reproductive 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 Hx Now Gestational Age (in weeks): EDC: [...] mls @ 15 mls/hr 04/18/25 21:41 IV .[id number] PRN Saline Flush Sodium Chloride 250 mls @ 15 mls/hr 04/18/25 21:41 IV .[id number] PRN Additional IVPB Infusion Pantoprazole Sodium 40 mg/ 100 mls @ 330 mls/hr 04/18/25 21:57 04/21/25 10:40 Sodium Chloride IV Infused Q24 VIMAL Infusion Lactated Ringer's 1,000 mls @ 15 mls/hr 04/20/25 13:00 04/21/25 15:37 IV 15 mls/hr .Q48H VIMAL Administration Ipratropium [place] 2 spray 04/19/25 07:17 Ipratropium [place] 0.06% Nasal [place] NASAL TID PRN allergy symptoms Levothyroxine Sodium 50 mcg 04/19/25 06:00 04/21/25 05:56 Levothyroxine 50 Mcg Tablet PO Not Given DAILY@0600 [facility] Nutritional Formula (Lactose Free) 120 ml 04/19/25 08:00 04/21/25 10:20 Ensure Clear 120 Ml Liquid PO Not Given TIDCM [facility] Oxycodone HCl 10 mg 04/19/25 07:19 04/21/25 [...] (dyspnea on exertion) Atherosclerotic heart disease of [place] coronary artery without angina pectoris Cardiac murmur [...] Stomach morphine AdvReac Nausea Verified 04/18/25 18:19 Rdaqpwr-FZO-GfD Reductase AdvReac Nausea Verified 04/18/25 18:19 Inhibitor (Baxuisq-Btf-Gcs Reductase Inhibitor) Family History Mother Cancer CAD [...] no additional complaints, except as documented. 04/21/25 1554 <Electronically signed by Storm steiner MD> Date _ Storm Gómez MD Cosigner Signature: Date CC: ~ Signed [facility] Work Phone: 1(939) 953-354406-03-2025 Procedure [facility] 04-21-2025 Procedure [facility]06-03-2025 Progress note Author Roman Mckeon [facility] Note Date/Time April 21, 2025 8:22a m [facility] Medical Records Department [address] [place] [address] Progress Note - Hospitalist 04/21/25 0727 MR#: [id number] Acct: [id number] Name: ANGÉLICA YO Rep #:[id number] 2 : 1955 69 From: Roman Mckeon MD PCP: Dr. Daron Benton MD Status:ADM IN Location: [place] [address]1 Reason for Visit Reason for Visit: Diagnoses [...] evidence for acute brain abnormality. Reading Location: [place] [address] Physical Exam Narrative GENERAL: cooperative HEENT: Atraumatic; [...] pain regimen Charges/Coding Visit Charges Inpatient E&M: 01753 Subs Hosp L2 04/21/25 0822 <Electronically signed by Roman Mckeon MD> Cosigner Signature (if applicable): CC: ~ Signed [facility] Work Phone: 1(821) 968-949606-03-2025 Progress note Author Sommer Resendiz [facility] Note Date/Time April 21, 2025 1:33a m [facility] Medical Records Department [address] [place] [address] Progress Note - Hospitalist 04/21/2540 MR#: [id number] Acct: [id number] Name: ANGÉLICA YO Rep #:[id number] 3 : 1955 69 From: Sommer Resendiz MD PCP: Dr. Daron Benton MD Status:ADM IN Location: [facility] PP737-9 Hospitalist Note Patient with unwitnessed mechanical fall, [...] Cosigner Signature (if applicable): cc: ~* Signed [facility] Work Phone: 1(662) 974-104706-03-2025 Radiology Diagnostic study [facility]06-02-2025 Consult note Author Aime Covarrubias [facility] Note Date/Time April 20, 2025 4:08p m [facility] Medical Records Department [address] [facility] [place] [address] Anesthesia Postop Eval II 04/20/25 1608 MR#: [id number] Acct: [id number] Name: ANGÉLICA YO Rep #:[id number] 0 : 1955 69 From: Aime Covarrubias MD PCP: Dr. Daron Benton MD Status:ADM IN Y Race: C Location: [facility] MS305 -1 Anesthesia Postop Eval I Sum Postop Eval Completion status Anesthesia document: Postop Eval 1 completed: Yes Anesthesia Postop Eval I Summary Anesthesia Postop Eval I Summary: Anesthesia Postop Eval I: Assessment Summary Airway patent Yes 04/20/25 13:53 DENTURE PACKER.JDEF Spontaneous unlabored Yes 04/20/25 13:53 DENTURE PACKER.JDEF respirations Mental status Awake 04/20/25 13:53 DENTURE PACKER.JDEF nausea No 04/20/25 13:53 DENTURE PACKER.JDEF Vomiting No 04/20/25 13:53 DENTURE PACKER.JDEF Anesthesia Postop Eval I: Fluid Summary Crystalloid volume administer 500 04/20/25 13:53 DENTURE PACKER.JDEF (ml) Colloids volume administered ( ml) Blood Product volume administered (ml) Total IV fluid infused 500 04/20/25 13:53 DENTURE PACKER.JDEF Anesthesia Postop Eval I: Summary Notes Anesthesia Complication No 04/20/25 13:53 DENTURE PACKER.JDEF Anesthesia Complication Comment: Post-operative progress note Anesthesia: Postop Eval II Evaluation Mental status: Awake Pain Level: 0 nausea: No Vomiting: No Complications Anesthesia Complication: No 04/20/25 1608 <Electronically signed by Aime Covarrubias MD> Date _ Aime Covarrubias MD Cosigner Signature: Date CC: ~ Signed [facility] Work Phone: 1(577) 189-100106-02-2025 Consult note Author Meliza Rea [facility] Note Date/Time April 20, 2025 1:53p [facility] Medical Records Department [address] [place] [address] Anesthesia Postop Eval I 04/20/25 1352 MR#: [id number] Acct: [id number] Name: ANGÉLICA YO Rep #:[id number] 8 : 1955 69 From: Meliza Rea CRNA PCP: Dr. Daron Benton MD Status:ADM IN Y Race: C Location: [place] [address] Anesthesia: Postop Eval I Current Vital Signs [...] 04/20/25 1353 <Electronically signed by Meliza mansfield DENTURE PACKER> Date _ Meliza Rea DENTURE PACKER Cosigner Signature: Date CC: ~ Signed [facility] Work Phone: 1(111) 394-790206-02-2025 Consult note Author Aime Covarrubias [facility] Note Date/Time April 20, 2025 1:21p [facility] Medical Records Department [address] [place] [address] Pre-Anesthesia Evaluation 04/20/25 1313 MR#: [id number] Acct: [id number] Name: ANGÉLICA YO Rep #:[id number] 8 : 1955 69 From: Aime Covarrubias [...] Procedure(s): EGD 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: 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 Hx Hospitalization No 04/15/21 11:49 Any Problems [...] take am of surgery PONV PONV - 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: PONV - 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 Female HX of Motion Sickness HX of N/V After Surgery Non-Smoker Duration of Surgery greater than 60 minutes Number of Risk Factors PONV Score Height & Weight Height & Weight: Anesthesia: Height & Weight Height 5 ft 5 in 04/19/25 10:28 Weight: 45.7 kg 04/19/25 10:28 Body Mass Index (BMI) 16.7 04/18/25 21:50 Respiratory Assessment Respiratory Assessment - 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: Respiratory Tract Infection Hx - 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 Hx Respiratory Tract Infection No 02/24/24 23:50 STOP Sleep Apnea STOP Sleep Apnea - 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: STOP Sleep Apnea - 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 Hx Hypertension Yes 04/18/25 21:53 Hx Sleep [...] Tobacco Use History Tobacco Use History - 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: Tobacco Use History - 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 Tobacco Use Smoking Status Light Smoker (<10/day) 04/18/25 21:53 Hx Tobacco Use Yes 04/18/25 21:53 Years Smoking Packs Smoked per Day Smoking Cessation Date was within the last 15 years Hx Smoking Cessation Date Hx Smoking Cessation No 04/18/25 21:53 Counseling Hematologic Medial History Hematologic Hx - 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: 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 Hx of Blood Transfusion Yes 04/18/25 21:53 [...] confused, unrespo /Reproduction History /Reproductive History - 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: /Reproductive 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 Hx Now Gestational Age (in weeks): EDC: [...] mls @ 15 mls/hr 04/18/25 21:41 IV .[id number] PRN Saline Flush Sodium Chloride 250 mls @ 15 mls/hr 04/18/25 21:41 IV .F04D65A PRN Additional IVPB Infusion Pantoprazole Sodium 40 mg/ 100 mls @ 330 mls/hr 04/18/25 21:57 04/20/25 09:59 Sodium Chloride IV 330 mls/hr Q24 VIMAL Administration Lactated Ringer's 1,000 mls @ 15 mls/hr 04/20/25 13:00 04/20/25 12:59 IV 15 mls/hr .Q48H VIMAL Administration Ipratropium [place] 2 spray 04/19/25 07:17 Ipratropium [place] 0.06% Nasal [place] NASAL TID PRN allergy symptoms Levothyroxine Sodium [...] (dyspnea on exertion) Atherosclerotic heart disease of [place] coronary artery without angina pectoris Cardiac murmur [...] Stomach morphine AdvReac Nausea Verified 04/18/25 18:19 Gtflnud-MDO-FkZ Reductase AdvReac Nausea Verified 04/18/25 18:19 Inhibitor (Wzzgqlf-Hjk-Rwn Reductase Inhibitor) Family History Mother Cancer CAD [...] MD Cosigner Signature: Date CC: ~ Signed [facility] Work Phone: 1(964) 336-604706-02-2025 Progress note Author Kevin Friend [facility] Note Date/Time April 20, 2025 1:19p m [facility] Medical Records Department [address] [place] [address] Progress Note 04/20/25 1318 MR#: [id number] Acct: [id number] Name: CHRISTINANGÉLICA RAE Rep #:[id number] 2 : 1955 69 From: Kevin Gonzalez DO PCP: Dr. Daron Benton MD Status:ADM IN Location: [place] [address] Progress Note Patient has been n.p.o. for [...] ASA of 3. Visit Charges Inpatient E&M: 78105 Subs Hosp L2 04/20/25 1319 <Electronically signed by Kevin Gonzalez DO> Kevin Gonzalez DO Cosigner Signature (if applicable): CC: ~ Signed [facility] Work Phone: 1(523) 755-366006-02-2025 Procedure [facility] 04-20-2025 Procedure [facility]06-02-2025 Progress note Author Roman Mckeon [facility] Note Date/Time April 20, 2025 7:32a m [facility] Medical Records Department [address] [place] [address] Progress Note - Hospitalist 04/20/25 0728 MR#: [id number] Acct: [id number] Name: ANGÉLICA YO Rep #:[id number] 9 : 1955 69 From: Roman Mckeon MD PCP: Dr. Daron Benton MD Status:ADM IN Location: [place] [address] Reason for Visit Reason for Visit: Diagnoses [...] 74.9 H, Lymph % (Auto) 11.1 L, Catahoula % (Auto) 11.3 H, Eos % (Auto) [...] pain regimen Charges/Coding Visit Charges Inpatient E&M: 23089 Subs Hosp L2 04/20/25 0732 <Electronically signed by Roman Mckeon MD> Cosigner Signature (if applicable): CC: ~ Signed [facility] Work Phone: 1(509) 879-762506-01-2025 Progress note Author Roman Mckeon [facility] Note Date/Time April 19, 2025 8:12a m [facility] Medical Records Department [address] [place] [address] Progress Note - Hospitalist 04/19/2510 MR#: [id number] Acct: [id number] Name: ANGÉLICA YO Rep #:[id number] 2 : 1955 69 From: Roman Mckeon MD PCP: Dr. Daron Benton MD Status:ADM IN Location: [address] Reason for Visit Reason for Visit: Diagnoses [...] (Auto) 79.5 H, Lymph % (Auto)9.5 L, Catahoula % (Auto) 9.4, Eos % (Auto) 0.5, [...] documentation, 52Minutes Charges/Coding Visit Charges Inpatient E&M: 22714 Subs Hosp L3 04/19/25 0812 <Electronically signed by Roman Mckeon MD> Cosigner Signature (if applicable): CC: ~ Signed [facility] Work Phone: 1(308) 586-967906-01-2025 History and physical note Author Sachin Murillo [facility] Note Date/Time April 19, 2025 12:52 am [facility] Medical Records Department [address] [place] [address] H&P Exam - Hospitalist 04/18/252126 MR#: [id number] Acct: [id number] Name: ANGÉLICA YO Rep #:[id number] 5 : 1955 69 From: Sachin chan MD PCP: Dr. Daron Benton MD Status:ADM IN Location: [place]3 [id number] HPI - General General Date of Admission: [...] lightheadedness or dizziness, no nausea or vomiting. [facility] Medical History Hypertensive emergency NSTEMI, initial episode of care Emphysema of lung Smoking greater than 30 pack years New onset atrial fibrillation TOLEDO (dyspnea on exertion) Atherosclerotic heart disease of [place]ul[place] coronary artery without angina pectoris Cardiac murmur [...] Stomach morphine AdvReac Nausea Verified 04/18/25 18:19 Jmfjkxg-YKZ-KcB Reductase AdvReac Nausea Verified 04/18/25 18:19 Inhibitor (Ubzxbkt-Irl-Hnt Reductase Inhibitor) Family History Mother Cancer CAD [...] (Auto) 79.5 H, Lymph % (Auto)9.5 L, Catahoula % (Auto) 9.4, Eos % (Auto) 0.5, [...] DVT: SCDs Charges/Coding Visit Charges Inpatient E&M: 09780 Init Hosp L2 04/19/25 0052 <Electronically signed by Sachin Murillo MD> Cosigner Signature (if applicable): CC: Dr. Daron Benton MD; Dr. Sachin Murillo MD~ Signed [facility] Work Phone: 1(214) 659-802806-01-2025 Discharge summary Author Jeffy Willoughby [facility] Note Date/Time April 18, 2025 10:46 pm [facility] Medical Records Department [address] [place] [address] Emergency Department Summary 04/18/25 MR#: [id number] Acct: [id number] Name: ANGÉLICA YO Rep #:[id number] 1 : 1955 69 From: Jeffy Willoughby MD PCP: Dr. Daron Benton MD Status:ADM IN Location: [place]3 SF298-2 HPI History of Present Illness Chief Complaint: [...] atrial fibrillation on apixaban, hyperlipidemia, non-ST elevation [place], alpha-1 antitrypsin deficiency, mitral valve stenosis, chronic [...] Prior similar symptoms: No Recent Illness/Hospitalization: Yes [facility] Medical History Hypertensive emergency NSTEMI, initial episode of care Emphysema of lung Smoking greater than 30 pack years New onset atrial fibrillation TOLEDO (dyspnea on exertion) Atherosclerotic heart disease of n[place] coronary artery without angina pectoris Cardiac murmur [...] Stomach morphine AdvReac Nausea Verified 04/18/25 18:19 Womvmsx-OIJ-PvM Reductase AdvReac Nausea Verified 04/18/25 18:19 Inhibitor (Tvbymdd-Iia-Nsf Reductase Inhibitor) Family History Mother Cancer CAD [...] Oxygen Delivery Method Room Air Room Air 05/31/25 18:45 04/18/25 18:50 04/18/25 18:55 Temperature Temperature [...] 79.5 H Lymph % (Auto) 9.5 L Catahoula % (Auto) 9.4 Eos % (Auto) 0.5 [...] (Auto) Neut % (Auto) Lymph % (Auto) Catahoula % (Auto) Eos % (Auto) Baso % [...] follows: Interpretation: Sinus Rhythm (Rate is 68. MD interval is 102 ms. Cures duration 82 ms. QT duration 456 ms. QTc is prolonged at 484 ms. Philip is normal. There is no acute ischemic [...] unit nurse Disposition Disposition: Acute Care Hospital [facility] Discharge Date/Time: 04/18/25 21:33 What to do if you have Problems For any increased pain, shortness of breath, bleeding, nausea or vomiting, chestpain, or any unexpected problems, contact your Primary Care Provider. Call [facility] ([phone]) or report to the closest Emergency Room. Call 911 if necessary. 04/18/252245 <Electronically signed by Jeffy Willoughby MD> Cosigner Signature (if applicable): CC: Dr. Daron Benton MD ~ Signed [facility] Work Phone: 1(650) 275-433105-31-2025 Evaluation note* Diagnosis Onset Date Resolution Status [...] 7:37am Symptomatic anemia resolved May 192024 7:37am [facility] Work Phone: 1(776) 555-687805-31-2025 Evaluation note* Diagnosis Onset Date Resolution Status [...] 7:37am Symptomatic anemia resolved May 192024 7:37am Chest pressure acute August 05, 2025 12:46pm Essential hypertension acute Se pt2024 12:46pm Mitral stenosis acute August 05, 2025 12:46pm Paroxysmal atrial fibrillation acute August 05, 2025 12:46pm Bilateral carotid artery stenosis chronic August 05, 2025 12:46pm HLD (hyperlipidemia) chronic Jul 12:46pm 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 Daron Benton MD Status: REG ER Study:Acute Abdomen Inc Chest Date of Exam: 04/17/25 Exam# [id number] Ordering Dr: Kari Haynes DO PROCEDURE: ACUTE [...] Abdomen Inc Chest IMPRESSION: Constipation. Reading Location: [id number] CC: Dr. Daron Benton MD; Yasmani Haynes DO ~ Epic Cadence Analyst: Signed [facility]05-21-2025 History of Present illness Narrative* Lizz Lynn, ANTWON - COLORS CUSTODIAN - 04/08/2025 2:30 PM EDT Visit type: Established Patient Reason for Visit: Follow-up and Multiple Sclerosis (/) Assessment and Plan 1. Multiple sclerosis (HCC) 2. Dysphasia Subjective HPI: Patient phoned in 3 days ago stating MS flare - affecting speech, swallowing, and VOSS. Went to [facility] about 1 week ago; according to [...] typical MS symptoms Received CT scan at [place] that she states was normal REVIEW- MS- [...] TSH VITAMIN B12: No results found for: [id number] No results found for: PHENYTOIN, PHENOBARB, VALPROATE, CBMZ No components found for: TOPIRA @RESULTINGLABINFO@ No results found for: LEVETIRACETA, FERRITIN, CRP, DENNIS, ANCA No results found for: CHRISTIANO, IMMUNOGLOBUL, OLIGOBANDS No results found for: ZGW58QL, HEPCAB No results found for: CRP, ANATITER, [...] scheduled in May, Lizz Lynn APRN - A[facility], furnish ongoing care related to Angélica Yo single, serious andcomplex condition(s) MSHero I assume responsibility for the patient's ongoing [...] family history on file. documented in this [facility]05-21-2025 Instructions* Patient Instructions* ANTWON Harrington CNP - 04/08/2025 2:30 PM EDT Please call [place] [phone] to schedule the MRI brain before 05/03/25 - this is when the authorization for the MRI expires documented in this [facility]05-15-2025 Radiology Diagnostic study [facility]05-15-2025 Discharge summary Author Nuno Grider [facility] Note Date/Time April 02, 2025 11:43 pm [facility] Medical Records Department [address] [place] [address] Emergency Department Summary 04/02/25 MR#: [id number] Acct: [id number] Name: ANGÉLICA YO Rep #:[id number] 9 : 1955 69 From: Nuno Grider [...] She denies any exacerbating or alleviating factors. [facility] Medical History Hypertensive emergency NSTEMI, initial episode of care Emphysema of lung Smoking greater than 30 pack years New onset atrial fibrillation TOLEDO (dyspnea on exertion) Atherosclerotic heart disease of [place] coronary artery without angina pectoris Cardiac murmur [...] Stomach morphine AdvReac Nausea Verified 04/02/25 19:26 Dbstcza-WVE-UnC Reductase AdvReac Nausea Verified 04/02/25 19:26 Inhibitor (Wnaxtov-Dcd-Ldl Reductase Inhibitor) Family History Mother Cancer CAD [...] by him. Once again, Idiscussed with her bctb-ah-vklt if she would like to be observed, [...] 80.4 H Lymph % (Auto) 10.5 L Catahoula % (Auto) 6.6 Eos % (Auto) 1.5 [...] fever, new or worsening symptoms. Print Language: Dominican Disposition Disposition: Home, Self Care What to do if you have Problems For any increased pain, shortness of breath, bleeding, nausea or vomiting, chestpain, or any unexpected problems, contact your Primary Care Provider. Call [facility] ([phone]) or report to the closest Emergency Room. Call 911 if necessary. 04/02/25 3968 <Electronically signed by Nuno Grider MD> Cosigner Signature (if applicable): CC: Dr. Daron Benton MD ~ Signed [facility] Work Phone: 1(211) 102-919005-15-2025 Hospital Discharge instructions Additional Instructions Follow-up with your neurologist within the next 1 to 2 days. Return with increased weakness, fever, new or worsening symptoms.[facility] Work Phone: 1([phone] 391-852404-21-2025 Telephone encounter Note* Telephone Encounter - Maeve Jacobson - 03/09/2025 11:40 AM EDT Order re faxed to [phone] [facility]. [id number] Miscellaneous Notes* Telephone Encounter - Maeve [place] - 03/09/2025 11:40 AM EDT Order re faxed to [phone] [facility]. * Telephone Encounter - Maria Antonia Kelly - 03/09/2025 11:11 AM EDT Name of caller: Kody Contact phone number: [phone] Relationship to Patient: [facility] Provider: AURORA Lynn Practice: [facility] Chief Complaint/Reason for Call: Kody called in requesting patient's MRI order be faxed over to them at fax # [phone]. Please be advised Best time of day caller can be reached: Any Patient advised that office/PCP has 24-48 business hours to return their call: N/A documented in this [facility]04-21-2025 Telephone encounter Note* Telephone Encounter - Maria Antonia Kelly - 03/09/2025 11:11 AM EDT Name of caller: Kody Contact phone number: [phone] Relationship to Patient: [facility] Provider: AURORA Lynn Practice: [facility] [place] Chief Complaint/Reason for Call: Kody called in requesting patient's MRI order be faxed over to them at fax # [phone]. Please be advised Best time of day caller can be reached: Any Patient advised that office/PCP has 24-48 business hours to return their call: N/A [facility] History of Present illness Narrative* Lizz Lynn, WATCH AND CLOCK REPAIRER - COLORS CUSTODIAN - 03/04/2025 10:30 AM EDT Visit type: [...] TSH VITAMIN B12: No results found for: [id number] No results found for: PHENYTOIN, PHENOBARB, VALPROATE, CBMZ No components found for: TOPIRA @RESULTINGLABINFO@ No results found for: LEVETIRACETA, FERRITIN, CRP, DENNIS, ANCA No results found for: CHRISTIANO, IMMUNOGLOBUL, OLIGOBANDS No results found for: WOM21RY, HEPCAB No results found for: CRP, ANATITER, ANCA FERRITIN: No results found for: FERRITIN ---- ECG 12 lead SINUS BRADYCARDIA PROBABLE LEFT ATRIAL ABNORMALITY No previous ECG available for comparison Electronically Signed On 04-05-2023 7:42:10 EDT by Juvenal Benton @[facility]@ IMPRESSION and PLAN: Problem List Items Addressed This Visit None Visit Diagnoses Multiple sclerosis (HCC) - Primary Mild cognitive impairment Stable. Continue baclofen 20mg TID, gabapentin 800mg TID New in last 6mos; it is medically necessary for her to have MRIbrain to look for stroke or other cause; EEG, and labs RTO 3 mos I, ANTWON Harrington CNP, furnish ongoing care related to nAgélica Yo single, serious andcomplex condition(s) multiple sclerosis. I assume responsibility for the patient's ongoing medical care of this condition. ANTWON Harrington CNP Electronically signed by ANTWON Harrington CNP on @TDNR@ at @NOWNR@ documented in this [facility]04-04-2025 Evaluation note* Diagnosis Onset Date [...] 2:10pm Constipation acute May 06, 025 2:10pm [facility] Work Phone: 1(294) 956-511204-04-2025 Evaluation note* Diagnosis Onset Date Resolution Status [...] 7:37am Symptomatic anemia resolved May 192024 7:37am [facility] Work Phone: 1(453) 447-979802-25-2025 [facility]02-23-2025 Evaluation note* Diagnosis Onset Date Resolution Status Admit Date 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 January [...] 2025 1:14pm Acute on chronic anemia resolved 2024 9:20pm Microcytic anemia resolved March 9:20pm Orthostatic hypotension resolved 2024 9:20pm Signs and symptoms of anemia resolve d April 18, 2025 9:20pm 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 cardiac care unit nurse resolved April 18, 2025 9 :20pm Symptomatic anemia resolved April 182024 9:20pm [facility] Work Phone: 1(332) 103-870002-05-2025 Evaluation note* Diagnosis Onset Date Resolution Status Admit Date Hhtai-7-gegazzlcljn deficien cy carrier acute December 24 1:52pm Hypoxemia chronic December 24, 2024 1:52pm Emphysema of lung inactive 2024 1:52pm Nicotine dependence, cigarettes, uncomplicated inactive 2024 1:52pm Smoking greater than 30 pack years inactive December 24 1:52pm 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 January 10, 2025 11:45pm Brain aneurysm inactive December 212024 11:45pm Cardiac murmur inactive December 212024 11:45pm TOLEOD (dyspnea on exertion) inactive January 10, 2025 [...] anemia acute March 9:20pm Orthostatic hypotension acute ay 2024 9:20pm Signs and symptoms of anemia acute April 18, 2025 9:20pm 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 cardiac care unit nurse acute April 18, 2025 9 :20pm Symptomatic anemia acute April 182024 9:20pm Acute on chronic anemia chronic ay 2024 9:20pm [facility] Work Phone: 1([phone]) 774-642401-31-2025 Evaluation note* Diagnosis Onset Date Resolution Status Admit Date Mitral stenosis acute November 212024 1:16pm Bilateral carotid artery stenosis chronic December 19 1:16pm Essential (primary) hypertension inactive December 19 1:16pm PAF (paroxysmal atrial fibrillation) inactive December 19 1:16pm Peripheral vascular occlusiv e disease inactive December 19 1:16pm Xhmtk-3-kkmoyrpxefr deficien cy carrier acute December 24 1:52pm Hypoxemia chronic December 24, 2024 1:52pm Emphysema of lung inactive 2024 1:52pm Nicotine dependence, cigarettes, uncomplicated inactive 2024 1:52pm Smoking greater than 30 pack years inactive December 24 1:52pm 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 January [...] e disease inactive February 20, 2025 1:14pm [facility] Work Phone: 1(185) 877-186801-31-2025 Evaluation note* Diagnosis Onset Date Resolution Status Admit Date Mitral stenosis acute November 212024 1:16pm Bilateral carotid artery stenosis chronic December 19 1:16pm Essential (primary) hypertension inactive December 19 1:16pm PAF (paroxysmal atrial fibrillation) inactive December 19 1:16pm Peripheral vascular occlusiv e disease inactive December 19 1:16pm Dyfgj-3-zjhrkgmsgyx deficien cy carrier acute December 24 1:52pm Hypoxemia chronic December 24, 2024 1:52pm Emphysema of lung inactive 2024 1:52pm Nicotine dependence, cigarettes, uncomplicated inactive 2024 1:52pm Smoking greater than 30 pack years inactive December 24 1:52pm 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 January [...] 9:19pm Acute on chronic anemia chronic M 2024 9:19pm [facility] Work Phone: 1(578) 710-585801-23-2025 [facility]01-21-2025 Evaluation note* Diagnosis Onset Date Resolution Status Admit Date Chest pain inactive December 09, 2024 2:32pm Chronic low back pain inactive Nov 2:32pm Diastolic [facility] 2:32[facility] Elevated troponin inactive December 09, 2024 2:32pm Nicotine dependence, cigarettes, uncomplicated inactive 2024 2:32pm Mitral stenosis acute November 212024 1:16pm Bilateral carotid artery stenosis chronic December 19 1:16pm Essential (primary) hypertension inactive December 19 1:16pm PAF (paroxysmal atrial fibrillation) inactive December 19 1:16pm Peripheral vascular occlusiv e disease inactive December 19 1:16pm Awlay-2-xmysnuzczho deficien cy carrier acute December 24 1:52pm Hypoxemia chronic December 24, 2024 1:52pm Emphysema of lung inactive 2024 1:52pm Nicotine dependence, cigarettes, uncomplicated inactive 2024 1:52pm Smoking greater than 30 pack years inactive December 24 1:52pm 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 January [...] e disease inactive February 20, 2025 1:14pm [facility] Work Phone: [phone] 667-105501-02-2025 Telephone encounter Note* Telephone Encounter - Linda Renard - 11/20/2024 2:41 PM EST Patient called [...] tab): 09/15/24 Updated/Validated preferred pharmacy: [id number] Patient instructed to contact the pharmacy prior to picking up the medication: Yes [facility]01-02-2025 Miscellaneous Notes* Telephone Encounter - Linda Renard - 11/20/2024 2:41 PM EST Patient called [...] (see medication tab): 09/15/24 Updated/Validated [id number] - [place], [place] - [address] [facility] Patient instructed to contact the pharmacy prior to picking up the medication: Yes * Telephone Encounter - Nallely Zaragoza MA - 11/20/2024 2:22 PM EST Last ov-12/14/23 Next ov- N/A documented in this [facility]01-02-2025 Telephone encounter Note* Telephone Encounter - Nallely Zaragoza MA - 11/20/2024 2:22 PM EST Last -12/14/23 Next ov- N/A [facility] Telephone encounter Note* Telephone Encounter - Yanely Kwon MA - 09/15/2024 6:47 AM EDT Last - 12/14/23 Next ov- n/a [facility]01 Miscellaneous Notes* Telephone Encounter - Yanely Kwon MA - 09/15/2024 6:47 AM EDT Last - 12/14/23 Next ov- n/a documented in this [facility]04-08-2024 Discharge summary Author Eva Mortensen [facility] February 25, 2024 4:04pm Note Date/Time February 25, 2024 3:34 pm [facility] Medical Records Department [address] [place] [address] Discharge Summary 02/25/24 1529 MR#: [id number] Acct: [id number] Name: ANGÉLICA YO Rep #:[id number] 0 : 1955 68 From: Eva Mortensen DO PCP: Dr. Daron Benton MD Status:ADM IN Location: [facility] EIO179- 1 Providers Date of Admission: 02/19/24 Date of Discharge: 02/25/24 Primary Care Physician: Dr. Daron Benton MD Consultations 02/19/24 16:58 Consult: Gastroenterology Routine Consulting Provider: [facility] Reason for Consult: GI bleed EMERGENT [...] who presented to the emergency department at [facility] on 02/19/2024 with lightheadedness. She [...] (Auto) 68.4, Lymph % (Auto) 16.3 L, Catahoula % (Auto) 11.3 H, Eos % (Auto) [...] Health Service Charges/Coding Visit Charges Inpatient E&M: 54132 Disch Hosp >30min 02/25/24 1557 <Electronically signed [...] Cosigner Signature (if applicable): cc: Dr. Jorge Hurtado, DO; Dr. Daron Benton MD; Dr. Eva Mortensen, DO; Kevin Gonzalez, DO ~* Signed [facility] Work Phone: 1(419) 687-831804-08-2024 Procedure [facility] 02-25-2024 Procedure [facility]04-07-2024 Progress note Author Roman Mckeon [facility] February 24, 2024 8:37am Note Date/Time February 24, 2024 8:07 am [facility] Medical Records Department [address] [place] [address] Progress Note - Hospitalist 02/24/24805 MR#: [id number] Acct: [id number] Name: ANGÉLICA YO Rep #:[id number] : 1955 68 From: Roman Mckeon MD PCP: Dr. Daron Benton MD Status:ADM IN Location: [place] [address] Reason for Visit Reason for Visit: Diagnoses [...] (Auto) 69.1, Lymph % (Auto) 15.5 L, Catahoula % (Auto) 11.4 H, Eos % (Auto) [...] 28 02/23/24 19:50: Troponin I High Sens 02/24/24 06:20: WBC 10.0, RBC 4.00 L, Hgb 9.8 L, Hct 33.1 L, MCV 82.8, MCH 24.5 L, MCHC 29.6 L, RDW Std Deviation 56.5 H, RDW Coeff of David 19.3 H, Plt Count 200, MPV 9.5, Immature Gran % (Auto) 0.700, Neut % (Auto) 79.0 H, Lymph % (Auto)8.2 L, Catahoula % (Auto) 10.2 H, Eos % (Auto) [...] 19:44 EDT Reading Location ID and State: [facility] / [place] , Service support , Physical Exam Narrative [...] 35 Minutes Charges/Coding Visit Charges Inpatient E&M: 34434 Subs Hosp L2 02/24/24 0837 <Electronically signed by Roman Mckeon MD> Cosigner Signature (if applicable): CC: ~ Signed [facility] Work Phone: 1(262) 404-374804-06-2024 Progress note Author Kevin Gonzalez [facility] February 23, 2024 4:20pm Note Date/Time February 23, 2024 4:20 pm [facility] Medical Records Department [address] [facility] [place] [address] Progress Note - GI 02/23/24 1619 MR#: [id number] Acct: [id number] Name: ANGÉLICA YO Rep #:[id number] : 1955 68 From: Kevin Gonzalez DO PCP: Dr. Daron Benton MD Status:ADM IN Location: [place] [address] Subjective Subjective Patient does not have any [...] (Auto) 69.1, Lymph % (Auto) 15.5 L, Catahoula % (Auto) 11.4 H, Eos % (Auto) [...] on Sunday. Charges/Coding Visit Charges Inpatient E&M: 32912 Subs Hosp L3 02/23/24 1620 <Electronically signed by Kevin Friend DO> Cosigner Signature (if applicable): CC: ~ Signed [facility] Work Phone: 1(374) 557-607704-06-2024 Progress note Author Roman Mckeon [facility] February 23, 2024 9:04am Note Date/Time February 23, 2024 8:20 am [facility] Medical Records Department [facility] [place] [address] Progress Note - Hospitalist 02/23/24819 MR#: [id number] Acct: [id number] Name: ANGÉLICA YO Rep #:[id number] 2 : 1955 68 From: Roman Mckeon MD PCP: Dr. Daron Benton MD Status:ADM IN Location: [place] [address] Reason for Visit Reason for Visit: Diagnoses [...] 38 Minutes Charges/Coding Visit Charges Inpatient E&M: 91720 Subs Hosp L2 02/23/24 0904 <Electronically signed by Roman Mckeon MD> Cosigner Signature (if applicable): CC: ~ Signed [facility] Work Phone: 1(240) 558-462604-05-2024 Progress note Author Kevin Gonzalez [facility] February 22, 2024 5:55pm Note Date/Time February 22, 2024 5:55 pm [facility] Medical Records Department [address] [place] [address] Progress Note - GI 02/22/24 1753 MR#: [id number] Acct: [id number] Name: ANGÉLICA YO Rep #:[id number] 8 : 1955 68 From: Kevin Gonzalez DO PCP: Dr. Daron Benton MD Status:ADM IN Location: [place] [address] Subjective Subjective Patient is still very lethargic [...] (Auto) 68.8, Lymph % (Auto) 14.2 L, Catahoula % (Auto) 12.5 H, Eos % (Auto) [...] and lethargy. Charges/Coding Visit Charges Inpatient E&M: 71352 Subs Hosp L3 02/22/24 1755 <Electronically signed by Kevin Friend DO> Cosigner Signature (if applicable): CC: ~ Signed [facility] Work Phone: 1(596) 941-271804-05-2024 Progress note Author Roman Mckeon [facility] February 22, 2024 9:50am Note Date/Time February 22, 2024 7:36 am [facility] Medical Records Department [address] [place] [address] Progress Note - Hospitalist 02/22/24 0736 MR#: [id number] Acct: [id number] Name: ANGÉLICA YO Rep #:[id number] 0 : 1955 68 From: Roman Mckeon MD PCP: Dr. Daron Benton MD Status:ADM IN Location: [place] [address] Reason for Visit Reason for Visit: Diagnoses [...] - Preliminary No growth in 48 hours. 04/02/24 14:10 Blood Culture (Wb) - Arm Left [...] was seen the day prior by Dr. Friendwith GI patient given the option of either [...] 52 Minutes Charges/Coding Visit Charges Inpatient E&M: 62487 Subs Hosp L3 02/22/24 0950 <Electronically signed by Roman Mckeon MD> Cosigner Signature (if applicable): CC: ~ Signed [facility] Work Phone: 1(519) 792-723404-04-2024 Progress note Author Kevin Gonzalez [facility] February 21, 2024 5:17pm Note Date/Time February 21, 2024 5:17 pm [facility] Medical Records Department [address] [place] [address] Progress Note - GI 02/21/24 1710 MR#: [id number] Acct: [id number] Name: ANGÉLICA YO Rep #:[id number] 8 : 1955 68 From: Kevin Gonzalez DO PCP: Dr. Daron Benton MD Status:ADM IN Location: [place] [address] Subjective Subjective She underwent an upper endoscopy [...] or outpatient. Charges/Coding Visit Charges Inpatient E&M: 74617 Subs Hosp L3 02/21/24 1717 <Electronically signed by Kevin Gonzalez DO> Cosigner Signature (if applicable): CC: ~ Signed [facility] Work Phone: 1(447) 585-575504-04-2024 Progress note Author Roman Mckeon [facility] February 21, 2024 11:21am Note Date/Time February 21, 2024 10:0 5am [facility] Medical Records Department [address] [place] [address] Progress Note - Hospitalist 02/21/24 1002 MR#: [id number] Acct: [id number] Name: ANGÉLICA YO Rep #:[id number] 4 : 1955 68 From: Roman Mckeon MD PCP: Dr. Daron Benton MD Status:ADM IN Location: [place] [address] Reason for Visit Reason for Visit: Diagnoses [...] 50 Minutes Charges/Coding Visit Charges Inpatient E&M: 91008 Subs Hosp L3 02/21/24 1121 <Electronically signed by Roman Mckeon MD> Cosigner Signature (if applicable): CC: ~ Signed [facility] Work Phone: 1(525) 158-145604-03-2024 Progress note Author Roman [facility] February 20, 2024 11:46am Note Date/Time February 20, 2024 10:0 8am [facility] Medical Records Department [address] [place] [address] Progress Note - Hospitalist 02/20/24 1005 MR#: [id number] Acct: [id number] Name: ANGÉLICA YO Rep #:[id number] 6 : 1955 68 From: Roman Mckeon MD PCP: Dr. Daron Benton MD Status:ADM IN Location: [place] [address] Reason for Visit Reason for Visit: Diagnoses [...] 73.5 H, Lymph % (Auto) 14.5 L, Catahoula % (Auto) 8.5, Eos % (Auto) 2.6, [...] 71.0 H, Lymph % (Auto) 14.4 L, Catahoula % (Auto) 11.1 H, Eos % (Auto) [...] 50 Minutes Charges/Coding Visit Charges Inpatient E&M: 86919 Subs Hosp 02/20/24 1146 <Electronically signed by Roman Mckeon MD> Nicholas Signature (if applicable): CC: ~ Signed [facility] Work Phone: 1(739) 430-610404-03-2024 Procedure [facility] 02-20-2024 Procedure [facility]04-02-2024 Consult note Author Kevin Gonzalez [facility] February 19, 2024 7:12pm Note Date/Time February 19, 2024 7:09 pm [facility] Medical Records Department [address] [place] [address] Consultation - GI 02/19/24 190 MR#: [id number] Acct: [id number] Name: ANGÉLICA YO Rep #:[id number] 1 : 1955 68 From: Kevin Gonzalez DO PCP: Dr. Daron Benton MD Status:ADM [facility] H[facility] Consult Data Date of Consult: [...] fell on Easter in the driveway onto [facility]. She did not hit her head. She denies any recent hospitalization or travel. Imaging of the chest displayed : right lower lobe infiltrate with small right pleural effusion with mild degree of vascular congestion in the right hemithorax. In the ED she was discovered to have a hemoglobin of 6.6. I was consulted for acute onset anemia [facility] Medical History Angina pectoris Bilateral carotid artery [...] Stomach morphine AdvReac Nausea Verified 02/19/24 10:57 Sqoaebp-Bwy-Bip Reductase AdvReac Nausea Verified 02/19/24 10:57 Inhibitor [...] 73.5 H, Lymph % (Auto) 14.5 L, Catahoula % (Auto) 8.5, Eos % (Auto) 2.6, [...] of 3. Charges/Coding Visit Charges Inpatient E&M: 85893 Init Hosp L3 02/19/241911 <Electronically signed by Kevin Friend DO> Cosigner Signature (if applicable): CC: Dr. Daron Benton MD~ Signed [facility] Work Phone: 1(758) 911-788904-02-2024 History and physical note Author Roman Mckeon [facility] February 19, 2024 3:25pm Note Date/Time February 19, 2024 2:26 pm [facility] Medical Records Department [address] [place] [address] H&P Exam - Hospitalist 02/19/24 1426 MR#: [id number] Acct: [id number] Name: ANGÉLICA YO Rep #:[id number] 0 : 1955 68 From: Roman Mckeon [...] Admitted to monitored bed for further management [facility] Medical History Angina pectoris Bilateral carotid artery [...] Stomach morphine AdvReac Nausea Verified 02/19/24 10:57 Pbtmpfo-RMX-ZvX Reductase AdvReac Nausea Verified 02/19/24 10:57 Inhibitor [Ivsiymr-Ard-Fxf Reductase Inhibitor] Family History Mother Cancer CAD [...] 73.5 H, Lymph % (Auto) 14.5 L, Catahoula % (Auto) 8.5, Eos % (Auto) 2.6, [...] 18 minutes. Charges/Coding Visit Charges Inpatient E&M: 28297 Init Hosp L3 Procedures Hospitalists Procedures: 68113 Advncd Care Plan 30 Min 02/19/24 1525 <Electronically signed by Roman Mckeon MD> Cosigner Signature (if applicable): CC: Dr. Roman Mckeon MD; Dr. Daron Benton MD~ Signed [facility] Work Phone: 1(347) 888-553404-02-2024 Discharge summary Author Jeffy Willoughby [facility] February 19, 2024 2:59pm Note Date/Time February 19, 2024 12:1 5pm [facility] Medical Records Department [address] [place] [address] Emergency Department Summary 02/19/24 MR#: [id number] Acct: [id number] Name: ANGÉLICA YO Rep #:[id number] 6 : 1955 68 From: Jeffy Willoughby MD PCP: Dr. Daron Benton MD Status:REG ER Location: ED ADDENDUM by Dr. Jeffy Willoughby MD on 02/19/24 at 1459 EKG reveals atrial fibrillation with a ventricular rate 87. QRS duration 84 ms. QT duration 414 ms. Philip is normal. QT is prolonged. 02/19/24 1459<Electronically [...] Stomach morphine AdvReac Nausea Verified 02/19/24 10:57 Slxlcgh-EUE-EsV Reductase AdvReac Nausea Verified 02/19/24 10:57 Inhibitor [Xazjxti-Auq-Wnk Reductase Inhibitor] Family History Mother Cancer CAD [...] Warren RN - Last Filed: 02/19/24 13:46> [facility] MDM Narrative Medical decision making narrative: [...] 73.5 H Lymph % (Auto) 14.5 L [place]atahoula % (Auto) 8.5 Eos % (Auto) 2.6 [...] in both arms to rule out dissection. Aktjd-qf-wsid glucose was obtained to rule out hypoglycemia. [...] 73.5 H Lymph % (Auto) 14.5 L [place]ata[place]oula % (Auto) 8.5 Eos % (Auto) 2.6 [...] for hypertension and pneumonia), Discussing w/Patient &/or Family/Public Services Assistant, Discussing w/Consultants (Spoke with Dr. Chamorro who referred patient to Dr. Roman Mckeon. Patient was accepted.) and Arranging Admission or Transfer Discharge Plan Dx/Rx/DC Orders Clinical Impression: Acute hypotension, Essential (primary) hypertension, Atrial fibrillation, Community acquired pneumonia, Atypical chest pain, Signs and symptoms of anemia,Symptomatic anemia, Peripheral vascular occlusive disease Disposition Disposition: Acute Care Hospital [facility] What to do if you have Problems For any increased pain, shortness of breath, bleeding, nausea or vomiting, chestpain, or any unexpected problems, contact your Primary Care Provider. Call [facility] ([phone]) or report to the closest Emergency Room. Call 911 if necessary. 02/19/24 1439 <Electronically signed by Jeffy Willoughby MD> Cosigner Signature (if applicable): 02/19/24 1346 <Electronically signed by Bernice Warren RN> CC: Dr. Daron Benton MD ~ Signed [facility] Work Phone: 1(695) 555-815204-02-2024 Discharge summary Author Jeffy Willoughby [facility] February 19, 2024 2:59pm Note Date/Time February 19, 2024 12:1 5pm [facility] Medical Records Department [address] [place] [address] Emergency Department Summary 02/19/24 MR#: [id number] Acct: [id number] Name: ANGÉLICA YO Rep #:[id number] 6 : 1955 68 From: Jeffy Willoughby MD PCP: Dr. Daron Benton MD Status:REG ER Location: ED ADDENDUM by Dr. Jeffy Willoughby MD on 02/19/24 at 1459 EKG reveals atrial fibrillation with a ventricular rate 87. QRS duration 84 ms. QT duration 414 ms. Philip is normal. QT is prolonged. 02/19/24 1459<Electronically [...] Prior similar symptoms: Yes Recent Illness/Hospitalization: No [facility] <Bernice Warren RN - Last Filed: 02/19/24 13:46> [facility] Medical History Angina pectoris Bilateral carotid artery [...] Stomach morphine AdvReac Nausea Verified 02/19/24 10:57 Tjdaaop-ETE-FjI Reductase AdvReac Nausea Verified 02/19/24 10:57 Inhibitor [Bvwvrql-Vnh-Qda Reductase Inhibitor] Family History Mother Cancer CAD [...] MDM <Bernice Warren RN - Last Filed: 04/02/24 13:46> MDM MDM Narrative Medical decision making [...] 73.5 H Lymph % (Auto) 14.5 L Catahoula % (Auto) 8.5 Eos % (Auto) 2.6 [...] in the right hemithorax. Electronically Signed: Jovon Freitsa MD at 12:50 EDT , EKG Initial [...] in both arms to rule out dissection. Mxiwj-ju-iydl glucose was obtained to rule out hypoglycemia. [...] Willoughby MD - Last Filed: 02/19/24 14:39> [facility] MDM Narrative Medical decision making narrative: [...] 73.5 H Lymph % (Auto) 14.5 L Catahoula % (Auto) 8.5 Eos % (Auto) 2.6 [...] which is new from prior image obtained Septembert year. Cardiac silhouette and size normal. Hilar [...] for hypertension and pneumonia), Discussing w/Patient &/or Family/Public Services Assistant, Discussing w/Consultants (Spoke with Dr. Chamorro who referred patient to Dr. Roman Mckeon. Patient was accepted.) and Arranging Admission or Transfer Discharge Plan Dx/Rx/DC Orders Clinical Impression: Acute hypotension, Essential (primary) hypertension, Atrial fibrillation, Community acquired pneumonia, Atypical chest pain, Signs and symptoms of anemia,Symptomatic anemia, Peripheral vascular occlusive disease Disposition Disposition: Acute Care [facility] What to do if you have Problems For any increased pain, shortness of breath, bleeding, nausea or vomiting, chestpain, or any unexpected problems, contact your Primary Care Provider. Call [facility] ([phone]) or report to the closest Emergency Room. Call 911 if necessary. 02/19/24 1439 <Electronically signed by Jeffy Willoughby MD> Cosigner Signature (if applicable): 02/19/24 1346 <Electronically signed by Bernice Warren RN> CC: Dr. Daron Benton MD ~ Signed [facility] Work Phone: 1(957) 139-455204-02-2024 History and physical note Author Roman Mckeon [facility] February 19, 2024 3:25pm Note Date/Time February 19, 2024 2:26 pm [facility] Medical Records Department [address] [place] [address] H&P Exam - Hospitalist 02/19/24 1426 MR#: [id number] Acct: [id number] Name: ANGÉLICA YO Rep #:[id number] 0 : 1955 68 From: Roman Mckeon [...] Admitted to monitored bed for further management [facility] Medical History Angina pectoris Bilateral carotid artery [...] Stomach morphine AdvReac Nausea Verified 02/19/24 10:57 Kvmgdxw-BVD-KsH Reductase AdvReac Nausea Verified 02/19/24 10:57 Inhibitor [Yutqmkx-Ntz-Nhl Reductase Inhibitor] Family History Mother Cancer CAD [...] 73.5 H, Lymph % (Auto) 14.5 L, Catahoula % (Auto) 8.5, Eos % (Auto) 2.6, [...] 18 minutes. Charges/Coding Visit Charges Inpatient E&M: 07014 Init Hosp L3 Procedures Hospitalists Procedures: 85129 Advncd Care Plan 30 Min 02/19/24 1525 <Electronically signed by Roman Mckeon MD> Cosigner Signature (if applicable): CC: Dr. Roman Mckeon MD; Dr. Daron Benton MD~ Signed [facility] Work Phone: 1([phone]) 630-950303-25-2024 Telephone encounter Note* Telephone Encounter - Nicole [...] prior to picking up the medication[id number] Miscellaneous Notes* Telephone Encounter - Nicole Jose Ramon Cota - 02/11/2024 10:34 AM EDT Medication [...] up the medication: N/A documented in this [facility]02-23-2024 Discharge summary Author Jori Garcia [facility] January 11, 2024 8:14am Note Date/Time January 11, 2024 2:45am [facility] Medical Records Department [address] [place] [address] Emergency Department Summary 01/11/24 MR#: [id number] Acct: [id number] Name: ANGÉLICA YO Rep #:[id number] 4 : 1955 68 From: Jori Garcai MD PCP: Dr. Daron Benton MD Status:[facility] ER Location: ED HPI HPI [...] in her ears, following with neurology at [facility], and has been having dizziness [...] she has osteoporosis. Sheis on no anticoagulants. [facility] Medical History Angina pectoris [...] Stomach morphine AdvReac Nausea Verified 01/11/24 02:15 Rbjbmvh-FMN-PqX Reductase AdvReac Nausea Verified 01/11/24 02:15 Inhibitor [Qhcvaiy-Tqb-Ooj Reductase Inhibitor] Family History Mother Cancer CAD [...] motor deficits and no sensory deficits noted [place] Coma Scale: document GCS findings Spontaneous Obeys [...] (prior Afib thought to have caused CVA/TIA, NTY1WF2-OJBk score of 4, prescribed Eliquis but patient [...] 85.1 H Lymph % (Auto) 5.2 L Catahoula % (Auto) 7.7 Eos % (Auto) 0.2 [...] Clarity Clear Urine pH 7.0 Ur Specific [place] 1.010 Urine Protein Negative Urine Glucose (UA) [...] (Auto) Neut % (Auto) Lymph % (Auto) Catahoula % (Auto) Eos % (Auto) Baso % (Auto) Absolute Neuts (auto) Absolute Lymphs (auto) Nucleated RBC % Sodium Potassium Chloride Carbon Dioxide Anion Gap BUN Creatinine Estim Creat Clear Calc Est GFR (MDRD) Af Amer Est GFR (MDRD) Non-Af BUN/Creatinine Ratio Glucose Lactic Acid Calcium Magnesium Troponin I High Sens 17 Urine Color Urine Clarity Urine pH Ur Specific [place] Urine Protein Urine Glucose (UA) Urine Ketones [...] problems, contact your Primary Care Provider. Call [facility] ([phone]) or report to the closest Emergency Room. Call 911 if necessary. 01/11/24 0814 <Electronically signed by Jori Garcia MD> Cosigner Signature (if applicable): CC: Dr. Tye Barnett MD; Dr. Daron Benton MD; MARIANA Candelario ~ Signed [facility] Work Phone: 1([phone]) 915-820801-26-2024 History of Present illness Narrative* Lizz Navas, ANTWON - [place] - 12/14/2023 2:00 PM EST Visit type: [...] unsure how much solumedrol she received. From [place] records: CT brain 12/02/23: no acute intracranial [...] TSH VITAMIN B12: No results found for: MPVQETDN07 No results found for: PHENYTOIN, PHENOBARB, VALPROATE, CBMZ No components found for: TOPIRA @RESULTINGLABINFO@ No results found for: LEVETIRACETA, FERRITIN, CRP, DENNIS, ANCA No results found for: CHRISTIANO, IMMUNOGLOBUL, OLIGOBANDS No results found for: VHQ44VZ, HEPCAB No results found for: CRP, ANATITER, ANCA FERRITIN: No results found for: FERRITIN ---- ECG 12 lead SINUS BRADYCARDIA PROBABLE LEFT ATRIAL ABNORMALITY No previous ECG available for comparison Electronically Signed On 04-05-2023 7:42:10 EDT by [facility]al [facility] IMPRESSION and PLAN: Problem List Items Addressed [...] 1 tablet on day 5 MRI from [facility] does not show reason for this; exam consistent with vertigo; will order vestibular theapy Vestibular therapy Referral to [facility]. No problem-specific Assessment & Plan notes found for this encounter. ANTWON Harrington CNP I spent 60 minutes caring for this patient today, reviewing labs, records, seeing the patient, documenting in the record and arranging for studies. Electronically signed by ANTWON Harrington CNP on @TDNR@ at @NOWNR@ documented in this [facility]01-26-2024 Instructions* Patient Instructions* ANTWON Harrington CNP - 12/14/2023 2:00 PM EST Prednisone 20mg: take 5 tablets on day 1, 4 tablets on day 2, 3 tablets on day 3, 2 tablets on day 4, and 1 tablet on day 5 Vestibular therapy at [facility] [phone] [facility] for eye exam: [phone] documented in this [facility]01-19-2024 Discharge summary Author Sachin Murillo [facility] December 07, 2023 12:49pm Note Date/Time December 07, 2023 1 2:38pm [facility] Medical Records Department [address] [place] [address] Instructions for Home/Discharge Instructions 12/07/23 1238 MR#: [id number] Acct: [id number] Name: ANGÉLICA YO Rep #:[id number] 3 : 1955 68 From: Sachin chan [...] Farris DO; Keyona Davidson MD ~ Signed [facility] Work Phone: 1(962) 843-222401-18-2024 Progress note Author Sachin Murillo [facility] December 06, 2023 9:04am Note Date/Time December 06, 2023 9 :04am [facility] Medical Records Department [address] [place] [address] Progress Note - Hospitalist 12/06/23 0900 MR#: [id number] Acct: [id number] Name: ANGÉLICA YO Rep #:[id number] 3 : 1955 68 From: Sachin chan [...] (Auto) 79.3 H, Lymph % (Auto) 10.6L, Catahoula % (Auto) 9.4, Eos % (Auto) 0.0, [...] 13:44 EST Reading Location ID and State: [facility] / [place] Tel , Service support , Rhythm Strip [...] ? Stable ? Continue with Synthroid DVT: Eliqu Capacity Legal Residential Driver Reflex Medical hold order details:: IF a medical hold is selected below, a suggested order for a MEDICAL HOLD will reflex upon signing the document. Next of kin: [place] law dictates a PRIORITY LIST for identifying legal decision-maker/legal next of kin in the following order (LNOK): 1st: The patient?s legal guardian, if any 2nd: The patient's spouse (if status is questionable, consult Risk Management) 3rd: The patient?s adult child(blaine) (majority, if multiple children) 4th: The patient?s parents 5th: The patient?s adult siblings (majority, if multiple children siblings) Charges/Coding Visit Charges Inpatient E&M: 85201 Subs Hosp L2 12/06/23 0904 <Electronically signed by Sachin Murillo MD> Cosigner Signature (if applicable): CC: ~ Signed [facility] Work Phone: 1(576) 588-819701-17-2024 Progress note Author Kiley Carpenter [facility] December 05, 2023 3:42pm Note Date/Time December 05, 2023 1 :57pm [facility] Medical Records Department [address] [place] [address] Progress Note - Neurology 12/05/23 1348 MR#: [id number] Acct: [id number] Name: ANGÉLICA YO Rep #:[id number] 3 : 1955 68 From: Kiley Carpenter [...] NIHSS: Ischemic Stroke/TIA Start: 12/03/23 09:41 Freq: [id number] Status: Active Protocol: Activity Type Activity Date [...] 12/05/23 23:59 23:59 23:59 Intake Total 2165 / 216 340 / 340 112 / 112 Output Total 200 / 200 Balance 216 / 216 140 / 140 112 / 112 Lab [...] 90.5 H, Lymph % (Auto) 5.1 L, Catahoula % (Auto) 3.7, Eos % (Auto) 0.0, [...] 5 5 EF 5 5 WE WF Video Software Engineer 5 5 HF 3 5 KE 4 5 KF 5 4 DF 5 5 PF 5 5 -? Sensation- Intact to light touch bilaterally -? Coordination: improved ataxia on the RLE (not prominent); b/l UE with no ataxia -? Gait- deferred 12/05/23 1542 <Electronically signed by Kiley Carpenter MD> Cosigner Signature (if applicable): CC: ~ Signed [facility] Work Phone: 1(298) 708-618301-17-2024 Progress note Author Sachin Murillo [facility] December 05, 2023 10:21am Note Date/Time December 05, 2023 1 0:21am [facility] Medical Records Department [address] [place] [address] Progress Note - Hospitalist 12/05/23 1016 MR#: [id number] Acct: [id number] Name: ANGÉLICA YO Rep #:[id number] 1 : 1955 68 From: Sachin chan [...] 90.5 H, Lymph % (Auto) 5.1 L, Catahoula % (Auto) 3.7, Eos % (Auto) 0.0, [...] meds as needed DVT: Eliquis Capacity Legal Residential Driver Reflex Medical hold order details:: IF a medical hold is selected below, a suggested order for a MEDICAL HOLD will reflex upon signing the document. Next of kin: [place] law dictates a PRIORITY LIST for identifying legal decision-maker/legal next of kin in the following order (LNOK): 1st: The patient?s legal guardian, if any 2nd: The patient's spouse (if status is questionable, consult Risk Management) 3rd: The patient?s adult child(blaine) (majority, if multiple children) 4th: The patient?s parents 5th: The patient?s adult siblings (majority, if multiple children siblings) Charges/Coding Visit Charges Inpatient E&M: 32561 Subs Hosp L2 12/05/23 1021 <Electronically signed by Sachin Murillo MD> Cosigner Signature (if applicable): CC: ~ Signed [facility] Work Phone: 1(137) 136-576901-17-2024 Progress note Author Jorge Hurtado [facility] December 05, 2023 8:31am Note Date/Time December 05, 2023 7 :39am [facility] Medical Records Department [address] [place] [address] Progress Note - Muck Boss 12/05/23 0737 MR#: [id number] Acct: [id number] Name: ANGÉLICA YO Rep #:[id number] 1 : 1955 68 From: Jorge Hurtado [...] noted above. This note was generated with [employer] dictation software. It may contain incorrectwords, spelling, [...] 90.5 H, Lymph % (Auto) 5.1 L, Catahoula % (Auto) 3.7, Eos % (Auto) 0.0, [...] Psych cooperative Charges/Coding Visit Charges Inpatient E&M: 07431 Subs Hosp L2 12/05/23 0831 <Electronically signed by Jorge Hurtado DO> Cosigner Signature (if applicable): CC: ~ Signed [facility] Work Phone: 1(463) 509-813301-17-2024 Progress note Author Kiley Carpenter [facility] December 04, 2023 10:44pm Note Date/Time December 04, 2023 8 :19pm [facility] Medical Records Department [address] [place] [address] Progress Note - Neurology 12/04/232014 MR#: [id number] Acct: [id number] Name: ANGÉLICA YO Rep #:[id number] 8 : 1955 68 From: Kiley Carpenter [...] NIHSS: Ischemic Stroke/TIA Start: 12/03/23 09:41 Freq: [id number] Status: Active Protocol: Activity Type Activity Date Activity User E-sign Co-sign Detail Recorded Client Recorded Date Recorded By Document 12/04/23 17:29 KE Desktop 12/04/23 17:30 KES 12/04/23 17:29 NIH [...] (Auto) 91.9 H, Lymph % (Auto)4.1 L, Catahoula % (Auto) 3.1, Eos % (Auto) 0.0, [...] Cosigner Signature (if applicable): CC: ~ Signed [facility] Work Phone: 1(344) 690-916001-16-2024 Consult note Author Jorge Hurtado [facility] December 04, 2023 2:14pm Note Date/Time December 04, 2023 7 :20am [facility] Medical Records Department [address] [place] [address] Consultation - Muck Boss 12/04/23 0715 MR#: [id number] Acct: [id number] Name: CHRISTINANGÉLICA ADELSO Rep #:[id number] 6 : 1955 68 From: Jorge Hurtado [...] noted above. This note was generated with [employer] dictation software. It may contain incorrectwords, spelling, [...] maintained on Eliquis, Plavix, Neurontin and antimicrobials. [facility] Medical History Angina pectoris Bilateral carotid artery [...] Stomach morphine AdvReac Nausea Verified 11/26/23 12:47 Dvseqss-VJU-OuF Reductase AdvReac Nausea Verified 11/26/23 12:47 Inhibitor [Lrjlowg-Qfs-Xmh Reductase Inhibitor] Family History Mother Cancer CAD [...] (Auto) 91.9 H, Lymph % (Auto)4.1 L, Catahoula % (Auto) 3.1, Eos % (Auto) 0.0, [...] MD at 22:18 EST , Capacity Legal Residential Driver Reflex Medical hold order details:: IF a medical hold is selected below, a suggested order for a MEDICAL HOLD will reflex upon signing the document. Next of kin: [place] law dictates a PRIORITY LIST for identifying legal decision-maker/legal next of kin in the following order (LNOK): 1st: The patient?s legal guardian, if any 2nd: The patient's spouse (if status is questionable, consult Risk Management) 3rd: The patient?s adult child(blaine) (majority, if multiple children) 4th: The patient?s parents 5th: The patient?s adult siblings (majority, if multiple children siblings) Charges/Coding Visit Charges Inpatient E&M: 32688 Init Hosp 12/04/23 1414 <Electronically signed by Jorge Hurtado [...] MD; Rhiannon Farris DO; Keyona Davidson MD~ [facility] Work Phone: 1(804) 945-206101-16-2024 Progress note Author Sachin Murillo [facility] December 04, 2023 9:58am Note Date/Time December 04, 2023 9 :58am [facility] Medical Records Department [address] [place] [address] Progress Note - Hospitalist 12/04/23 0953 MR#: [id number] Acct: [id number] Name: ANGÉLICA YO Rep #:[id number] 1 : 1955 68 From: Sachin chan [...] (Auto) 91.9 H, Lymph % (Auto)4.1 L, Catahoula % (Auto) 3.1, Eos % (Auto) 0.0, [...] meds as needed DVT: Eliquis Capacity Legal Residential Driver Reflex Medical hold order details:: IF a medical hold is selected below, a suggested order for a MEDICAL HOLD will reflex upon signing the document. Next of kin: [place] law dictates a PRIORITY LIST for identifying legal decision-maker/legal next of kin in the following order (LNOK): 1st: The patient?s legal guardian, if any 2nd: The patient's spouse (if status is questionable, consult Risk Management) 3rd: The patient?s adult child(blaine) (majority, if multiple children) 4th: The patient?s parents 5th: The patient?s adult siblings (majority, if multiple children siblings) Charges/Coding Visit Charges Inpatient E&M: 95559 Subs Hosp L2 12/04/23 0958 <Electronically signed by Sachin Murillo MD> Cosigner Signature (if applicable): CC: ~ Signed [facility] Work Phone: [phone] 878-948701-16-2024 Progress note Author Roman Hewitt [facility] December 04, 2023 12:19am Note Date/Time December 03, 2023 8 :22pm [facility] Medical Records Department [address] [place] [address] Progress Note - Hospitalist 12/03/232018 MR#: [id number] Acct: [id number] Name: ANGÉLICA YO Rep #:[id number] 9 : 1955 68 From: Roman Ortega [...] this time. I patiently spoke to the ENTRY LEVEL LAB TECHNICIAN and informed her to send the patient [...] sonwas updated with results. RUN DATE: 12/03/23 [facility], DEPARTMENT OF LABORATORIES PAGE 1 RUN TIME: 2038 Specimen Inquiry [address], [place], [place], [id number] PATIENT: ANGÉLICA YO LOC: ICU U #: [id number] : 1955 AGE/SX: 68/F FACILITY: [facility] ROOM: ICU02 RE12/02/[address]: Dr. Sachin Murillo STATUS:ADM IN ED: 1 DIS: ~ SPEC #: [id number] LIZBET: 12/03/23 STATUS: COMP REQ #: [id number] RECD: 12/03/23-[address]: Dr. Sachin Murillo MD ENTERED: 12/03/23-[address]: Kt Friend MD, Amir Hinduja, Archana [...] CO2 23 mmol/L SO2 95 95-99 % [facility] Imaging Services [address] [place] [address] CTA Head AND Neck W/ Contrast MR#: [id number] Acct: [id number] Name: ANGÉLICA YO Rep #: [id number] : 1955 F 68 From: Charmaine Grant MD PCP: Dr. Daron Benton MD Status: ADM IN Study: CTA Head AND Neck W/ Contrast Date of Exam: 12/03/23 Exam# [id number] Ordering Dr: Roman Miller DO STUDY: CTA [...] There is no demonstrated aneurysm of the hopi of [place]. There is no demonstrated abnormality [...] Miller DO; Dr. Daron Benton MD ~ Epic Cadence Analyst: Signed 12/04/23 001 <Electronically signed by Roman Miller DO> Cosigner Signature (if applicable): CC: ~ Signed [facility] Work Phone: 1(679) 406-113001-15-2024 Progress note Author Sachin Murillo [facility] December 03, 2023 2:31pm Note Date/Time December 03, 2023 2 :22pm [facility] Medical Records Department [address] [place] [address] Progress Note - Hospitalist 12/03/23 1419 MR#: [id number] Acct: [id number] Name: ANGÉLICA YO Rep #:[id number] 5 : 1955 68 From: Sachin chan MD PCP: Dr. Daron Benton MD Status:ADM IN Location: [place] [address] Subjective Subjective She was a stroke alert [...] 12/03/23 13:33 12/03/23 13:33 12/03/23 13:33 12/03/23 13:12/03/23 13:33 Oxygen Delivery Method Room Air Weight: [...] 88.4 H, Lymph % (Auto) 10.2 L, Catahoula % (Auto) 0.8, Eos % (Auto) 0.0, [...] meds as needed DVT: Eliquis Capacity Legal Residential Driver Reflex Medical hold order details:: IF a medical hold is selected below, a suggested order for a MEDICAL HOLD will reflex upon signing the document. Next of kin: [place] law dictates a PRIORITY LIST for identifying legal decision-maker/legal next of kin in the following order (LNOK): 1st: The patient?s legal guardian, if any 2nd: The patient's spouse (if status is questionable, consult Risk Management) 3rd: The patient?s adult child(blaine) (majority, if multiple children) 4th: The patient?s parents 5th: The patient?s adult siblings (majority, if multiple children siblings) Charges/Coding Visit Charges Inpatient E&M: 46972 Subs Hosp L2 12/03/23 1431 <Electronically signed by Sachin Murillo MD> Cosigner Signature (if applicable): CC: ~ Signed [facility] Work Phone: 1(111) 960-355501-14-2024 Consult note Author Kiley Carpenter [facility] December 02, 2023 2:51pm Note Date/Time December 02, 2023 2 :05pm [facility] Medical Records Department [facility] [place] [address] Consultation - Neurology 12/02/23 1403 MR#: [id number] Acct: [id number] Name: ANGÉLICA YO Rep #:[id number] 9 : 1955 68 From: Kiley Carpenter MD PCP: Dr. Daron Benton MD Status:ADM IN Location: [place] [address] Assessment and Plan: Neuro Assessment/Plan ANGÉLICA YO [...] any urinary symptoms. Her neurologist is in [place]. ANGÉLICA YO, is a 68 F with [...] hrs Had her aneurysm coiled in 2013. [facility] Medical History Angina pectoris Bilateral carotid artery [...] Stomach morphine AdvReac Nausea Verified 11/26/23 12:47 Qfkqkwk-NHZ-BqS Reductase AdvReac Nausea Verified 11/26/23 12:47 Inhibitor [Telutcg-Ofk-Vvu Reductase Inhibitor] Family History Mother Cancer CAD [...] 4 EF 5 4 WE l WF Video Software Engineer 5 5 HF 3 4 KE 4 [...] % (Auto) 56.3, Lymph % (Auto) 28.5, Catahoula % (Auto) 12.7 H, Eos % (Auto) [...] Clarity Clear, Urine pH 6.5, Ur Specific [place] 1.015, Urine Protein 15 H, Urine Glucose [...] 125 Mcg Capsule (5,000 Units) PO DAILY [facility] Clopidogrel Bisulfate 75 mg 12/03/23 10:00 Clopidogrel Bisulfate 75 Mg Tablet PO DAILY [facility] Docusate Sodium 100 mg 12/02/23 12:37 Docusate Sodium 100 Mg Capsule PO BID PRN PRN Constipation Gabapentin 800 mg 12/02/23 12:45 Gabapentin 800 Mg Tablet PO TIDCM [facility] Guaifenesin 1 tablet 12/02/23 22:00 Guaifenesin/D-Methorphan Tab.Sr.12h PO Q12 [facility] Guaifenesin 20 ml 12/02/23 12:37 Guaifenesin 10 Ml Udc (200mg/10ml) PO Q4H PRN PRN COUGH Potassium Chloride/Dextrose/Sod Cl 20 meq in 1,000 mls @ 100 mls/hr 12/02/23 12:37 IV 12/03/23 08:36 .Q10H [facility] Ceftriaxone Sodium 1 gm in 50 mls @ 100 mls/hr 12/02/23 12:37 Rocephin IV 12/09/23 12:38 Q24 [facility] Levothyroxine Sodium 50 mcg 12/03/23 06:00 Levothyroxine 50 Mcg Tablet PO DAILY@0600 [facility] Lisinopril 5 mg 12/03/23 10:00 Lisinopril 5 Mg Tablet PO DAILY [facility] Protocol Melatonin 3 mg 12/02/23 12:37 Melatonin 3 Mg Tablet PO QHS PRN PRN INSOMNIA Metoprolol Tartrate 12.5 mg 12/02/23 22:00 Metoprolol Tartrate 25 Mg Tablet PO BID [facility] Protocol Nitroglycerin 0.4 mg 12/02/23 12:37 Nitroglycerin (Inpatient Use) 0.4 Mg Tab.Subl SL Q5M PRN CARDIAC/CHEST PAIN Ondansetron HCl 4 mg 12/02/23 12:37 Ondansetron 4 Mg/2 Ml Vial IV Q8H PRN PRN NAUSEA/VOMITING Oxycodone HCl 10 mg 12/02/23 12:37 12/02/23 13:01 Oxycodone 5 Mg Tablet PO 10 mg Q4H PRN PRN Administration Pain Score 4-10 12/02/23 7871 <Electronically signed by Kiley Carpenter MD> Cosigner [...] Arleen Estrada DO; Keyona Davidson MD~ Signed [facility] Work Phone: 1(735) 182-949901-14-2024 Discharge summary Author Gabriella [facility] December 02, 2023 1:21pm Note Date/Time December 02, 2023 8 :23am [facility] Medical Records Department [address] [place] [address] Emergency Department Summary 12/02/23 MR#: [id number] Acct: [id number] Name: ANGÉLICA YO Rep #:[id number] 6 : 1955 68 From: Gabriella Green PCP: Dr. Daron Benton MD Status:ADM IN Location: [address] History of Present Illness Chief Complaint: [...] any urinary symptoms. Her neurologist is in [place]. [facility] Medical History Angina pectoris [...] Stomach morphine AdvReac Nausea Verified 11/26/23 12:47 Yielabn-MDY-ZkQ Reductase AdvReac Nausea Verified 11/26/23 12:47 Inhibitor [Rcrxymm-Vwa-Shb Reductase Inhibitor] Family History Mother Cancer CAD [...] off the bed. Is able to do ebekbk-pz-gkez but has bilateral ataxia with it. Too [...] to touch my finger her nose with hplrbn-zm-ksup. Her symptoms started at least 24 hours [...] % (Auto) 56.3 Lymph % (Auto) 28.5 Catahoula % (Auto) 12.7 H Eos % (Auto) [...] Clarity Clear Urine pH 6.5 Ur Specific [place] 1.015 Urine Protein 15 H Urine Glucose [...] Multiple sclerosis Disposition Disposition: Acute Care Hospital [facility] Discharge Date/Time: 12/02/23 12:36 What to do if you have Problems For any increased pain, shortness of breath, bleeding, nausea or vomiting, chestpain, or any unexpected problems, contact your Primary Care Provider. Call [facility] ([phone]) or report to the closest Emergency Room. Call 911 if necessary. 12/02/23 1321 <Electronically signed by Gabriella Simpson DO> Cosigner Signature (if applicable): CC: Dr. Daron Benton MD ~ Signed [facility] Work Phone: 1([phone]) 801-673201-14-2024 History and physical note Author Roman Mckeon [facility] December 02, 2023 11:53am Note Date/Time December 02, 2023 1 1:43am [facility] Medical Records Department [address] [place] [address] H&P Exam - Hospitalist 12/02/23 1140 MR#: [id number] Acct: [id number] Name: ANGÉLICA YO Rep #:[id number] 9 : 1955 68 From: Roman Mckeon MD PCP: Dr. Daron Benton MD Status:ADM IN Location: MS3 WD144-5 HPI - General General Date of Admission: [...] to a monitored bed for further management [facility] Medical History Angina pectoris Bilateral carotid artery [...] Stomach morphine AdvReac Nausea Verified 11/26/23 12:47 Ihshvnc-UVP-UoB Reductase AdvReac Nausea Verified 11/26/23 12:47 Inhibitor [Oqikvbd-Lbf-Jjb Reductase Inhibitor] Family History Mother Cancer CAD [...] % (Auto) 56.3, Lymph % (Auto) 28.5, Catahoula % (Auto) 12.7 H, Eos % (Auto) [...] Clarity Clear, Urine pH 6.5, Ur Specific [place] 1.015, Urine Protein 15 H, Urine Glucose [...] 18 minutes. Charges/Coding Visit Charges Inpatient E&M: 02406 Init Hosp L3 Procedures Hospitalists Procedures: 75264 Advncd Care Plan 30 Min 12/02/23 1153 <Electronically signed by Roman Mckeon MD> Cosigner Signature (if applicable): CC: Dr. Roman Mckeon MD; Dr. Daron Benton MD~ Signed [facility] Work Phone: [phone]) 289-643601-09-2024 Discharge summary Author Ramírez Onofre [facility] November 27, 2023 11:55am Note Date/Time November 27, 2023 9: 40am [facility] Medical Records Department [address] [place] [address] Emergency Department Summary 11/27/23 MR#: [id number] Acct: [id number] Name: ANGÉLICA YO Rep #:[id number] : 1955 68 From: Ramírez Onofre [...] Prior similar symptoms: No Recent Illness/Hospitalization: [facility] Medical History Angina pectoris Bilateral carotid artery [...] Stomach morphine AdvReac Nausea Verified 11/26/23 12:47 Tcpgjhe-GEO-PmL Reductase AdvReac Nausea Verified 11/26/23 12:47 Inhibitor [Uqmvscc-Uct-Bcl Reductase Inhibitor] Family History Mother Cancer CAD [...] moving all 4 extremities. She has 5-5 maintainer operator strength equal and symmetrical. Dorsi and plantarflexion [...] 71.7 H Lymph % (Auto) 16.8 L Catahoula % (Auto) 9.9 Eos % (Auto) 0.4 [...] 11:19 EST Reading Location ID and State: [facility] / [place] Tel , Service support , Chest X-Ray [...] rate of 50 no acute signs of NH or ischemia. No significant change from November [...] problems, contact your Primary Care Provider. Call [facility] ([phone]) or report to the closest Emergency Room. Call 911 if necessary. 11/27/23 7408 <Electronically signed by Ramírez Onofre MD> Cosigner Signature (if applicable): CC: Dr. Daron Benton MD ~ Signed [facility] Work Phone: 1([phone]) 326-115001-03-2024 Discharge summary Author Sachin Murillo [facility] November 21, 2023 9:07am Note Date/Time November 21, 2023 8: 56am [facility] Medical Records Department [address] [place] [address] Instructions for Home/Discharge Instructions 11/21/23 0855 MR#: [id number] Acct: [id number] Name: ANGÉLICA YO Rep #:[id number] 2 : 1955 68 From: Sachin chan [...] can be placed): Home, Self Care 11/21/23 09<Electronically signed by Sachin Murillo MD>Sachin Murillo MD CC: Dr. Sommer Resendiz MD; Dr. Daron Benton MD ~ Signed [facility] Work Phone: 1(125) 350-452401-02-2024 Progress note Author Sachin Murillo [facility] November 20, 2023 10:23am Note Date/Time November 20, 2023 10 :23am [facility] Medical Records Department [address] [place] [address] Progress Note - Hospitalist 11/20/23 1021 MR#: [id number] Acct: [id number] Name: ANGÉLICA YO Rep #:[id number] 6 : 1955 68 From: Sachin chan MD PCP: Dr. Daron Benton MD Status:ADM IN Location: [place] [address] Subjective Subjective Still feels fatigued and unwell [...] 81.9 H, Lymph % (Auto) 5.9 L, Catahoula % (Auto) 9.8, Eos % (Auto) 0.1, [...] Signed: Angle Reynoso MD at 14:56 EST , Physical Exam Narrative General: Alert, [...] DVT: SCDs Charges/Coding Visit Charges Inpatient E&M: 82603 Subs Hosp L2 11/20/23 1023 <Electronically signed by Sachin Murillo MD> Cosigner Signature (if applicable): CC: ~ Signed [facility] Work Phone: 1(990) 985-343701-01-2024 Progress note Author Sachin Murillo [facility] November 19, 2023 10:52am Note Date/Time November 19, 2023 10 :52am [facility] Medical Records Department [address] [place] [address] Progress Note - Hospitalist 11/19/23 1046 MR#: [id number] Acct: [id number] Name: ANGÉLICA YO Rep #:[id number] 6 : 1955 68 From: Sachin chan MD PCP: Dr. Daron Benton MD Status:ADM IN Location: [place] [address] Subjective Subjective Doing well, no issues overnight. [...] % (Auto) 66.4, Lymph % (Auto) 19.4, Catahoula % (Auto) 12.9 H, Eos % (Auto) [...] Clarity Clear, Urine pH 6.0, Ur Specific [place] 1.015, Urine Protein Negative, Urine Glucose (UA) [...] (Auto) 67.7, Lymph % (Auto) 17.1 L, C[place]oula % (Auto) 13.3 H, Eos % (Auto) [...] DVT: SCDs Charges/Coding Visit Charges Inpatient E&M: 42908 Subs Hosp L2 11/19/23 1052 <Electronically signed by Sachin Murillo MD> Cosigner Signature (if applicable): CC: ~ Signed [facility] Work Phone: 1(840) 431-756412-31-2023 History and physical note Author Sommer Resendiz [facility] November 18, 2023 8:55pm Note Date/Time November 18, 2023 2:14pm [facility] Medical Records Department [address] [place] [address] H&P Exam - Hospitalist 11/18/23 1413 MR#: [id number] Acct: [id number] Name: ANGÉLICA YO Rep #:[id number] 5 : 1955 68 From: Sommer Resendiz MD PCP: Dr. Daron Benton MD Status:ADM [facility] HPI - General General Date [...] injury associated to now represents to the [facility] ED on 11/18/23 with history of [...] Stomach morphine AdvReac Nausea Verified 11/15/23 11:27 Oofulwe-CQW-ZvR Reductase AdvReac Nausea Verified 11/15/23 11:27 Inhibitor [Yabjzsl-Ryg-Oll Reductase Inhibitor] Family History Mother Cancer CAD [...] % (Auto) 66.4, Lymph % (Auto) 19.4, Catahoula % (Auto) 12.9 H, Eos % (Auto) [...] Clarity Clear, Urine pH 6.0, Ur Specific [place] 1.015, Urine Protein Negative, Urine Glucose (UA) [...] injury associated to now represents to the [facility] ED on 11/18/23 with history of [...] Code status. Charges/Coding Visit Charges Inpatient E&M: 70694 Init Hosp L3 11/18/232054 <Electronically signed by Sommer Resendiz MD> Cosigner Signature (if applicable): CC: Dr. Sommer Resendiz MD; Dr. Daron Benton MD~ Signed [facility] Work Phone: 1(227) 430-836612-31-2023 Discharge summary Author Michele Kebede [facility] November 18, 2023 3:08pm Note Date/Time November 18, 2023 12:03pm [facility] Medical Records Department [address] [place] [address] Emergency Department Summary 11/18/23 MR#: [id number] Acct: [id number] Name: ANGÉLICA YO Rep #:[id number] 0 : 1955 68 From: Michele Kebede [...] states she has never had atrial fibrillation. [facility] Medical History Angina pectoris [...] Stomach morphine AdvReac Nausea Verified 11/15/23 11:27 Chhnmgz-NQU-JjC Reductase AdvReac Nausea Verified 11/15/23 11:27 Inhibitor [Ehesmnt-Bch-Jlf Reductase Inhibitor] Family History Mother Cancer CAD [...] % (Auto) 66.4 Lymph % (Auto) 19.4 Catahoula % (Auto) 12.9 H Eos % (Auto) [...] Clarity Clear Urine pH 6.0 Ur Specific [place] 1.015 Urine Protein Negative Urine Glucose (UA) [...] 13:04 EST Reading Location ID and State: [facility] / [place] Tel , Service support , EKG Initial [...] Influenza A Disposition Disposition: Acute Care [facility] What to do if you have Problems For any increased pain, shortness of breath, bleeding, nausea or vomiting, chestpain, or any unexpected problems, contact your Primary Care Provider. Call [facility] ([phone]) or report to the closest Emergency Room. Call 911 if necessary. 11/18/23 1508 <Electronically signed by Michele Kebede MD> Cosigner Signature (if applicable): CC: Dr. Daron Benton MD ~ Signed [facility] Work Phone: 1(601) 612-144612-31-2023 Discharge summary Author Michele Kebede [facility] November 18, 2023 3:08pm Note Date/Time November 18, 2023 12:03pm [facility] Medical Records Department [address] [place] [address] Emergency Department Summary 11/18/23 MR#: [id number] Acct: [id number] Name: CHRISTINANGÉLICA PELAYO Rep #:[id number] 0 : 1955 68 From: Michele Kebede [...] states she has never had atrial fibrillation. [facility] Medical History Angina pectoris [...] Stomach morphine AdvReac Nausea Verified 11/15/23 11:27 Ywpkqma-QEW-PnO Reductase AdvReac Nausea Verified 11/15/23 11:27 Inhibitor [Talbryr-Hnl-Tiu Reductase Inhibitor] Family History Mother Cancer CAD [...] % (Auto) 66.4 Lymph % (Auto) 19.4 C[place]oul[place] % (Auto) 12.9 H Eos % (Auto) [...] Clarity Clear Urine pH 6.0 Ur Specific [place] 1.015 Urine Protein Negative Urine Glucose (UA) [...] Influenza A Disposition Disposition: Acute Care [facility] What to do if you have Problems For any increased pain, shortness of breath, bleeding, nausea or vomiting, chestpain, or any unexpected problems, contact your Primary Care Provider. Call [facility] ([phone]) or report to the closest Emergency Room. Call 911 if necessary. 11/18/23 1508 <Electronically signed by Michele Kebede MD> Cosigner Signature (if applicable): CC: Dr. Daron Benton MD ~ Signed [facility] Work Phone: [phone]) 660-381212-28-2023 History and physical note Author Sommer Resendiz [facility] November 15, 2023 3:44pm Note Date/Time November 15, 2023 3:14pm [facility] Medical Records Department [address] [place] [address] H&P Exam - Hospitalist 11/15/23 1512 MR#: [id number] Acct: [id number] Name: ANGÉLICA YO Rep #:[id number] 3 : 1955 68 From: Sommer Resendiz MD PCP: Dr. Daron Benton MD Status:ADM IN Location: [facility] VG861-9 HPI - General General Date of Admission: 11/15/23 Date of Service: 11/15/23 Chief Complaint: Poor intake, malaise, fatigue, weakness, N/V/D HPI Narrative The patient is a 68 y/o F w/ PMHx: Hx Cerebral aneurysm, Chronic pain syndrome, HTN, HLD, Hx TIA, Multiple Sclerosis, Nonobstructive CAD, Psoriatic arthritis, PAD, NS SVT, GERD, Hypothyroidism, Carotid disease, Tobacco use who presents to the [facility] ED on 11/15/23 with history of [...] x 1 and 1 L normal saline. [facility] Medical History Angina pectoris Bilateral carotid artery [...] Reaction Status Date / Time colestipol [From Robertstid] Allergy Mild unknown Verified 11/15/23 11:27 pregabalin [...] Stomach morphine AdvReac Nausea Verified 11/15/23 11:27 Xbrqrxa-BDQ-SzV Reductase AdvReac Nausea Verified 11/15/23 11:27 Inhibitor [Ftndqzx-Cww-Qoq Reductase Inhibitor] Family History Mother Cancer CAD [...] 70.4 H, Lymph % (Auto) 14.3 L, C[place]houla % (Auto) 14.5 H, Eos % (Auto) [...] 13:03 EST Reading Location ID and State: [facility] / [place] Tel , Service support , Assessment & Plan Assessment/Plan (1) Influenza A: (2) Acute kidney injury: PLAN: Plan The patient is a 68 y/o F w/ PMHx: Hx Cerebral aneurysm, Chronic pain syndrome, HTN, HLD, Hx TIA, Multiple Sclerosis, Nonobstructive CAD, Psoriatic arthritis, PAD, NS SVT, GERD, Hypothyroidism, Carotid disease, Tobacco use who presents to the [facility] ED on 11/15/23 with history of [...] 16 minutes. Charges/Coding Visit Charges Inpatient E&M: 99908 Init Hosp L3 Procedures Hospitalists Procedures: 67625 Advncd Care Plan 30 Min 11/15/23 1544 <Electronically signed by Sommer Resendiz MD> Cosigner Signature (if applicable): CC: Dr. Sommer Resendiz MD; Dr. Daron Benton MD~ Signed [facility] Work Phone: 1(569) 782-386012-28-2023 Discharge summary Author Michele Kebede [facility] November 15, 2023 3:10pm Note Date/Time November 15, 2023 12:02pm [facility] Medical Records Department [address] [place] [address] Emergency Department Summary 11/15/23 MR#: [id number] Acct: [id number] Name: ANGÉLICA YO Rep #:[id number] 2 : 1955 68 From: Michele Kebede [...] because she cannot take the strong medications. [facility] Medical History Angina pectoris [...] Stomach morphine AdvReac Nausea Verified 11/15/23 11:27 Vwjfwqe-LGI-LlY Reductase AdvReac Nausea Verified 11/15/23 11:27 Inhibitor [Yudukab-Syh-Zyc Reductase Inhibitor] Family History Mother Cancer CAD [...] 70.4 H Lymph % (Auto) 14.3 L Catahoula % (Auto) 14.5 H Eos % (Auto) [...] ventricular ectopy. No acuteST elevation or depression. MD interval, QRS duration are normal. QTc is [...] Provider] - Disposition Disposition: Acute Care [facility] What to do if you have Problems For any increased pain, shortness of breath, bleeding, nausea or vomiting, chestpain, or any unexpected problems, contact your Primary Care Provider. Call [facility] ([phone]) or report to the closest Emergency Room. Call 911 if necessary. 11/15/23 1510 <Electronically signed by Michele Kebede MD> Cosigner Signature (if applicable): CC: Dr. Daron Benton MD ~ Signed [facility] Work Phone: [phone]) 366-636912-28-2023 Discharge summary Author Michele Kebede [facility] November 15, 2023 3:10pm Note Date/Time November 15, 2023 12:02pm [facility] Medical Records Department [address] [place] [address] Emergency Department Summary 11/15/23 MR#: [id number] Acct: [id number] Name: ANGÉLICA YO Rep #:[id number] 2 : 1955 68 From: Michele Kebede MD PCP: Dr. Daron Benton MD Status:[facility] ER Location: ED HPI History [...] because she cannot take the strong medications. [facility] Medical History Angina pectoris [...] Stomach morphine AdvReac Nausea Verified 11/15/23 11:27 Yfqrswt-JPD-MxP Reductase AdvReac Nausea Verified 11/15/23 11:27 Inhibitor [Qiybxhl-Obn-Aqb Reductase Inhibitor] Family History Mother Cancer CAD [...] 70.4 H Lymph % (Auto) 14.3 L Catahoula % (Auto) 14.5 H Eos % (Auto) [...] ventricular ectopy. No acuteST elevation or depression. MD interval, QRS duration are normal. QTc is [...] Care Provider] - Disposition Disposition: [facility] Care [facility] What to do if you have Problems For any increased pain, shortness of breath, bleeding, nausea or vomiting, chestpain, or any unexpected problems, contact your Primary Care Provider. Call [facility] ([phone]) or report to the closest Emergency Room. Call 911 if necessary. 11/15/23 1510 <Electronically signed by Michele Kebede MD> Cosigner Signature (if applicable): CC: Dr. Daron Benton MD ~ Signed [facility] Work Phone: 1(543) 702-895011-17-2023 History of Present illness Narrative* Kristopher Main MD - 10/05/2023 3:00 PM EST Images from the original note were not included. [facility] [address] [place] [address] [facility] [address] Dept: [phone] Dept Loc: [phone] Patient was seen today via Telehealth by [...] that they are currently in the state [facility]. If the patient is a minor,permission has [...] TSH VITAMIN B12: No results found for: CKGUJDDV11 No results found for: PHENYTOIN, PHENOBARB, VALPROATE, CBMZ No results found for: LEVETIRACETA, FERRITIN, CRP, DENNIS, ANCA FERRITIN: No results found for: FERRITIN @RESULTINGLABINFO@ No components found for: TOPIRA No results found for: CHRISTIANO, IMMUNOGLOBUL, OLIGOBANDS No results found for: VEI91BE, HEPCAB No results found for: CRP, ANATITER, ANCA ---- @LASTAPPOINTMENTTHISPROV@ ECG 12 lead SINUS BRADYCARDIA PROBABLE LEFT ATRIAL ABNORMALITY No previous ECG available for comparison Electronically Signed On 04-05-2023 7:42:10 EDT by Juvenal Benton Patient Name: [facility]O [facility] 1955 [id number] Exam Date/Time: 04/04/2023 15:32 Procedure: CT HEAD [...] volume rendered reformats were obtained using a [employer] workstation. Review of the axial source data [...] of the major intracranial arteries at the hop[place] of [place]. 6. No hemodynamically significant narrowing [...] and arranging for studies. documented in this encounterSOhio State University Wexner Medical CenterBmejmp34-81-9532 Telephone encounter Note* Telephone Encounter - Yanely Kwon MA - 10/05/2023 12:58 PM EST Patient has been scheduled and records are being faxed over. [id number] Miscellaneous Notes* Telephone Encounter - Yanely Kwon MA - 10/05/2023 12:58 PM EST Patient has been scheduled and records are being faxed over. * Telephone Encounter - Kristopher Main MD - 10/05/2023 12:36 PM EST Get records from [facility]. OK to add her on at 3 PM as a real or a virtual visit * Telephone Encounter - Ольга Pa - 10/05/2023 9:20 AM EST Name of caller: Angélica Contact phone number: [phone] Relationship to Patient: patient Provider: DR Main Practice: [facility] Chief Complaint/Reason for Call: pt was at [facility] yesterday for an MS attack she is asking for IV steroids order infusion. She was started at the hospital and will need additional steroids.Please advise when order placed. Best time of day caller can be reached: AM Patient advised that office/PCP has 24-48 business hours to return their call: Yes documented in this encounterSOhio State University Wexner Medical CenterSycoqu02-96-6244 Telephone encounter Note* Telephone Encounter - Kristopher Main MD - 10/05/2023 12:36 PM EST Get records from [facility]. OK to add her on at 3 PM as a real or a virtual visit [facility] [id number] Telephone encounter Note* Telephone Encounter - Ольга Pa - 10/05/2023 9:20 AM EST Name of caller: Angélica Contact phone number: [phone] Relationship to Patient: patient Provider: DR Main Practice: [facility] Chief Complaint/Reason for Call: pt was at [facility] yesterday for an MS attack she is asking for IV steroids order infusion. She was started at the hospital and will need additional steroids.Please advise when order placed. Best time of day caller can be reached: AM Patient advised that office/PCP has 24-48 business hours to return their call: Yes [facility] [id number] Telephone encounter Note* Telephone Encounter - Annalee Ram - 06/15/2023 9:41 AM EDT Medication name: baclofen (Lioresal) 20 MG tablet [[id number]] Order Details Dose: 20 mg Route: Oral [...] Original Order: baclofen (Lioresal) 20 MG tablet [[id number]] Providers Ordering and Authorizing Provider: Kristopher Main MD NEGRA #: [id number] Ordering User: Kristopher Main MD Pharmacy [facility] #[id number] [address] NEGRA #: -- Date of last office visit: 04/04/23 Date of next office visit: None Date of last refill: (see medication tab): 10/05/22 Updated/Validated preferred pharmacy: Yes Patient instructed to contact the pharmacy prior to picking up the medication: Yes [facility] [id number] Miscellaneous Notes* Telephone Encounter - Annalee Ram - 06/15/2023 9:41 AM EDT Medication name: baclofen (Lioresal) 20 MG tablet [[id number]] Order Details Dose: 20 mg Route: Oral [...] Original Order: baclofen (Lioresal) 20 MG tablet [[id number]] Providers Ordering and Authorizing Provider: Kristopher Main MD NEGRA #: [id number] Ordering User: Kristopher Main MD Pharmacy [facility] #[id number] [address] NEGRA #: -- Date of last office visit: 04/04/23 Date of next office visit: None Date of last refill: (see medication tab): 10/05/22 Updated/Validated preferred pharmacy: Yes Patient instructed to contact the pharmacy prior to picking up the medication: Yes documented in this encounterSOhio State University Wexner Medical CenterDotkbu16-31-4282 Telephone encounter Note* Telephone Encounter - Kristopher Main MD - 06/04/2023 4:04 PM EDT Rx renewed [facility] [id number] Miscellaneous Notes* Telephone Encounter - Kristopher Main [...] up the medication: Yes documented in this encounterSOhio State University Wexner Medical CenterGqlpsu14-92-8000 Telephone encounter Note* Telephone Encounter - Bina Snow - 06/04/2023 3:31 PM EDT Please advise. [facility] HospitalHulfgg04-33-5318 Telephone encounter Note* Telephone Encounter - Jeni [...] picking up the medication: Yes [facility] [id number] Hospital Discharge instructions Additional Instructions 1. Do not place an Jean-Claude wrap on your foot this probably contributed to the swelling. 2. Apply ice to calf 6-10 times a day for the next 3 to 5 daysWUniversity [facility]als [facility] Work Phone: 1(674) 517-529212-22-2022 Hospital Discharge instructions Patient Education 11/09/2022 12:48:32 [...] and water are not available, use hand vault cashier. ?Change your dressing as told by your [...] the contrast dye from your body. Take jedz-cxe-jxlxtjt and prescription medicines only as told by [...] 05/24/2006 Document Revised: 10/18/2018 Document Reviewed: 10/10/2017 [employer] Patient Education 2020 [employer]. 11/09/2022 12:48:21 Moderate Conscious Sedation, Adult, Care [...] until you are awake and alert. Take yknu-xaa-dmdmkdd and prescription medicines only as told by [...] 08/26/2014 Document Revised: 10/18/2018 Document Reviewed: 02/24/2017 [employer] Patient Education 2020 [employer]. Follow Up Care 10/27/2022 15:58:56 With:TYE BARNETT MD, [facility], Surgery, Vascular Surgeons Address: [facility] [address] [place] [address] When: Unknown Comments:Follow-up as scheduled [facility] 12-22-2022 Summary of episode note Discharge Instructions Thank you for allowing [facility] to assist you with your healthcare needs. The following is importantdischarge information regarding your hospital visit. What to do next Follow Up Appointments Follow Up with TYE BARNETT MD, [facility], Surgery, Vascular Surgeons When Why: Follow-up as scheduled Where: [facility] [address] [address] The Following Activity and Diet [...] and water are not available, use hand vault cashier. ? Change your dressing as told by [...] the contrast dye from your body. Take yqqz-wtd-yebscez and prescription medicines only as told by [...] 05/24/2006 Document Revised: 10/18/2018 Document Reviewed: 10/10/2017 [employer] Patient Education 2020 [employer]. Moderate Conscious Sedation, Adult, Care After These [...] until you are awake and alert. Take cbta-lzy-yvfbluh and prescription medicines only as told by [...] 08/26/2014 Document Revised: 10/18/2018 Document Reviewed: 02/24/2017 [employer] Patient Education 2020 [employer] Additional Information VACCINATE! IT SAVES LIVES! Members of the community who have not yet received the COVID-19 vaccine and would like to receive it can visit one of [facility] vaccine clinics. There are many vaccine clinic locations within the [facility]. For locations and available times, please visit https://gettheshot.coronavirus.[place].gov/. It is important to note that some COVID mobile vaccine clinics are held outdoors and may be canceled in rainy or stormy conditions. To learn more about pediatric vaccinations (ages 5-11), we invite you to visit the [facility] webpage. https://www.[facility].org/pages/8717-Qnhhc-Twklxggsnja-Dfdkklstli-Zelnf-Jzc stions.htmlTo learn more about the COVID-19 vaccine, we invite you to visit the [facility] website for a list of frequently asked questions. https://yesenia.org/assets/Fkgbqkmi-exq-Nnhalfzl/vocuf-Qorlpob-Qspyclgyxj _Asked-Questions.pdf [facility] [employer] Patient Portal Access Instructions: Stay connected with your healthcare team and access your personal medical information anytime with the [facility] [employer] Patient Portal.If you would like a full copy of your medical records, please contact the [facility] Medical Records Department, Sunday through Sunday between 8a.m. and 4:30p.m. Please follow the directions below to access the portal: 1.Access the email account you provided upon registration to the [facility].2.Look for an invitation email from [facility].3.Open the email and access the invitation link: Accept Invitation to [employer]4.Fill in the required duarte to create your account. Sign into www.[email or web address] with your username and password that you [...] you will allow to register on the [employer] Patient Portal for access to your information. You can also access the [employer] Patient Portal on the [employer]. Simply click on Health Records under Skipjump and then click on the GLO logo. HOW TO SAFELY DISPOSE OF PRESCRIPTION [...] Call your local pharmacy or go to http://Pink Rebel Shoes.TopDeejays/9E3Av8h to find one close to you.3.Make use of household items: Use cat litter or old coffee grounds to dispose medications if other options arenot available. Mix your drugs with these household products, seal them in an airtight container andthrow it into the garbage. Call [facility]: [phone] to be sure your drugs can be [...] aware that I should contact my doctor. Patient/Residential Driver Signature: Date/Time: Relationship to Patient: Witness Name/Signature: Date/Time: [facility] [id number] Note ORIGINAL Images acquired, not reported on this accession number. [facility] [id number] Note ORIGINAL Images acquired, not reported on this accession number.[facility] 04-12-2021 NoteHNO ID: [id number] Author: RT Sandra(Mayda) Service: ? Author Type: Biometrics Specialist Type: Progress Notes Filed: 04/12/2021 2:14 PM [...] Yo DATE: April 12, 2021 TIME: 2:13 [facility]03-24-2021 NoteHNO ID: [id number] Author: Meli Gore Service: ? Author Type: [...] of wound at high risk for bone exposure.[facility]01-07-2021 History of Present illness Narrative* Tammy Cornejo [...] 25, 2020 3:08 PM documented in this encounterThe [facility] Hospital note Author Noa Raza [facility] November 16, 2023 10:43am Note Date/Time November 16, 2023 10:43am [facility] Medical Records Department [address] [place] [address] Counseling Note - Pharmacy 11/16/23 1043 MR#: [id number] Acct: [id number] Name: ANGÉLICA YO Rep #:[id number] 0 : 1955 68 From: Noa Raza PCP: Dr. Daron Benton MD Status:ADM IN Y Location: [place] [address] Pharmacy [place] Med Reconciliation Pharmacy Service has performed discharge [...] Signature (if applicable): Date CC: ~ Signed [facility] Work Phone: Consult note Author Christel Miranda [facility] November 21, 2023 11:56am Note Date/Time November 21, 2023 11 :56am [facility] Medical Records Department [address] [place] [address] Counseling Note - Pharmacy 11/21/23 1155 MR#: [id number] Acct: [id number] Name: ANGÉLICA OY Rep #:[id number] 2 : 1955 68 From: Christel Miranda PCP: Dr. Daron Benton MD Status:ADM IN Location: [place] [address] Pharmacy [facility] Pharmacy Service has performed [...] Signature (if applicable): Date CC: ~ Signed [facility] Work Phone: Consult note Author Christel Miranda [facility] February 25, 2024 4:09pm Note Date/Time February 25, 2024 4:08 pm [facility] Medical Records Department [address] [place] [address] Counseling Note - Pharmacy 02/25/24 1607 MR#: [id number] Acct: [id number] Name: ANGÉLICA YO Rep #:[id number] 2 : 1955 68 From: Christel Miranda PCP: Dr. Daron Benton MD Status:ADM IN Location: [place] [address] Pharmacy [facility] Pharmacy Service has performed [...] mg PO BID #60 tabs 02/25/24 02/25/24 160 <Electronically signed by Christel Miranda> Date _ Christel Miranda Cosigner Signature (if applicable): Date CC: ~ Signed [facility] Work Phone: Consult note Author Christel Miranda [facility] Note Date/Time April 22, 2025 4:00p [facility] Medical Records Department [address] [place] [address] Counseling Note - Pharmacy 04/22/25 1559 MR#: [id number] Acct: [id number] Name: ANGÉLICA YO Rep #:[id number] 8 : 1955 69 From: Christel Miranda PCP: Dr. Daron Benton MD Status:ADM IN Y Location: [place] RE179-6 Pharmacy [facility] Counseling Pharmacy Service has performed discharge medication [...] by Christel Miranda> Date _ Christel Miranda Cosign Signature (if applicable): Date CC: ~ Signed [facility] Work Phone: Discharge summary Author Hi Garcia [facility] November 16, 2023 10:38am Note Date/Time November 16, 2023 10:33am [facility] Medical Records Department [address] [facility] [place] [address] Instructions for Home/Discharge Instructions 11/16/23 1032 MR#: [id number] Acct: [id number] Name: ANGÉLICA YO Rep #:[id number] 1 : 1955 68 From: Hi Llanos [...] MD; Dr. Daron Benton MD ~ Signed [facility] Work Phone: Discharge summary Author Hi Garcia [facility] November 16, 2023 10:51am Note Date/Time November 16, 2023 10:50am [facility] Medical Records Department [address] [place] [address] Discharge Summary 11/16/23 1043 MR#: [id number] Acct: [id number] Name: ANGÉLICA YO Rep #:[id number] 7 : 1955 68 From: Hi Llanos PCP: Dr. Daron Benton MD Status:ADM IN Location: [address] Providers Date of Admission: 11/15/23 Date of [...] 70.4 H, Lymph % (Auto) 14.3 L, Catahoula % (Auto) 14.5 H, Eos % (Auto) [...] Sl. Cloudy, Urine pH 5.0, Ur Specific [place] 1.015, Urine Protein 15 H, Urine Glucose [...] Neut % (Auto) 57.7, Lymph % (Auto) 25.5,Catahoula % (Auto) 15.7 H, Eos % (Auto) [...] to go home. Visit Charges Inpatient E&M: 41471 Disch Hosp >30min 11/16/23 1051 <Electronically signed by Hi Garcia MD> Cosigner Signature (if applicable): CC: Dr. Daron Benton MD; Dr. Hi Garcia MD~ Signed [facility] Work Phone: Discharge summary Author Sachin Murillo [facility] November 21, 2023 11:01am Note Date/Time November 21, 2023 11 :01am [facility] Medical Records Department [address] [place] [address] Discharge Summary 11/21/23 1057 MR#: [id number] Acct: [id number] Name: ANGÉLICA YO Rep #:[id number] 1 : 1955 68 From: Sachin chan MD PCP: Dr. Daron Benton MD Status:ADM IN Location: [place] [address] Providers Date of Admission: 11/18/23 Primary Care [...] injury associated to now represents to the [facility] ED on 11/18/23 with history of [...] % (Auto) 62.0, Lymph % (Auto) 14.3L, Catahoula % (Auto) 18.8 H, Eos % (Auto) [...] am Betsey Lindquist PA [Med Staff - [facility] Prof] - 12/21/23 1:00 pm Disposition Disposition (needs filled in before D/C Order can be placed): Home, Self Care Charges/Coding Visit Charges Inpatient E&M: 69875 Disch Hosp >30min 11/21/23 1101 <Electronically signed by Sachin Murillo MD> Cosigner Signature (if applicable): CC: Dr. Daron Benton MD; Dr. Sachin Murillo MD~ Signed [facility] Work Phone: Discharge summary Author Sachin Murillo [facility] December 07, 2023 2:21pm Note Date/Time December 07, 2023 2 :21pm [facility] Medical Records Department [address] [place] [address] Discharge Summary 12/07/23 1417 MR#: [id number] Acct: [id number] Name: ANGÉLICA YO Rep #:[id number] 0 : 1955 68 From: Sachin chan [...] of Tele-Neurology Consult: Yes 12/04/23 06:18 Consult: Muck Boss / Pulmonary Medicine Routine Consulting Provider: Intensivists/Pulmonary [...] 71.0 H, Lymph % (Auto) 17.9 L, Catahoula % (Auto) 9.8, Eos % (Auto) 0.1, [...] - Final No growth in 5 days. 01/14/24 10:27 Urine, Catheterized Urine Culture - Final [...] Health Service Charges/Coding Visit Charges Inpatient E&M: 35845 Disch Hosp >30min 12/07/23 1421 <Electronically signed by Sachin Murillo MD> Cosigner Signature (if applicable): CC: Dr. Daron Benton MD; Dr. Sachin Murillo MD~ Signed [facility] Work Phone: Discharge summary Author [facility] Note Date/Time June 03, 2025 7:47 am [facility] Medical Records Department [address] [place] [address] Emergency Department Summary 06/03/25 MR#: [id number] Acct: [id number] Name: ANGÉLICA YO Rep #:[id number] 3 : 1955 69 From: Yasmani Haynes [...] the persistent pain comes in for evaluation. [facility] Medical History Hypertensive emergency NSTEMI, initial episode of care Emphysema of lung Smoking greater than 30 pack years New onset atrial fibrillation [place] (dyspnea on exertion) Atherosclerotic heart disease of [place] coronary artery without angina pectoris Cardiac murmur [...] Stomach morphine AdvReac Nausea Verified 06/03/25 02:30 Vempxts-NVF-BvM Reductase AdvReac Nausea Verified 06/03/25 02:30 Inhibitor (Ozlnmas-Mzj-Oat Reductase Inhibitor) Family History Mother Cancer CAD [...] of blood. The case was discussed with mechatronics technologist/Dr. Gonzalez. He states that with her anemia [...] (Auto) 69.4 Lymph % (Auto) 13.4 L Catahoula % (Auto) 14.0 H Eos % (Auto) [...] 03:20 IMPRESSION: Small right effusion. Reading Location: [place] [address] Chest x-ray is interpreted by the emergency medicine physician reveals a small right pleural effusion without acute infiltrate or pneumothorax Management Discussion w/another healthcare provider: Hospitalist and Speaker Wirer Discharge Plan Triage Chief Complaint: Edema ED Provider: Yasmani Haynes Dx/Rx/DC Orders Clinical Impression: Anemia, Congestive heart failure, Paroxysmal atrial fibrillation, Current use of group home anticoagulation Prescriptions: No Action gabapentin 800 mg [...] MD [Primary Care Provider] - Print Language: Dominican Disposition Disposition: Acute Care Hospital [facility] What to do if you have Problems For any increased pain, shortness of breath, bleeding, nausea or vomiting, chestpain, or any unexpected problems, contact your Primary Care Provider. Call [facility] ([phone]) or report to the closest Emergency Room. Call 911 if necessary. 06/03/25 1144 <Electronically signed by Yasmani Haynes DO> Cosigner Signature (if applicable): CC: Dr. Daron Benton MD ~ Signed [facility] Work Phone: Evaluation + Plan note No data available for this section [facility] Evaluation note* Diagnosis Onset Date Resolution Status Effusion of left knee joint acute Left knee DJD acute Psoriatic arthritis acute Chronic pain chronic Peripheral vascular occlusive disease chronic Bilateral carotid artery stenosis chronic Essential (primary) hypertension chronic Nonobstructive atherosclerosis of coronary artery chronic Peripheral vascular occlusive disease chronic [facility] Work Phone: Evaluation note* Diagnosis Onset Date Resolution Status Peripheral vascular occlusive disease chronic Bilateral carotid artery stenosis chronic Essential (primary) hypertension chronic Nonobstructive atherosclerosis of coronary artery chronic Peripheral vascular occlusive disease chronic Bilateral carotid artery stenosis chronic Essential (primary) hypertension chronic Nonobstructive atherosclerosis of coronary artery chronic Peripheral vascular occlusive disease chronic [facility] Work Phone: Evaluation note* Diagnosis Onset Date Resolution Status Cardiac murmur acute Bilateral carotid artery stenosis chronic Essential (primary) hypertension chronic Nonobstructive atherosclerosis of coronary artery chronic Peripheral vascular occlusive disease chronic [facility] Work Phone: Evaluation noteNo assessment information available [facility] Work Phone: Evaluation note* Diagnosis Onset Date Resolution Status Effusion of left knee joint acute Left knee DJD acute Psoriatic arthritis acute Cardiac murmur acute [place] (dyspnea on exertion) ac ione Bilateral carotid artery stenosis chronic Essential (primary) hypertension chronic Nonobstructive atherosclerosis of coronary artery chronic Peripheral vascular occlusive disease chronic [facility] Work Phone: Evaluation note* Diagnosis Onset Date Resolution Status Effusion of left knee joint acute Left knee DJD acute Psoriatic arthritis acute Cardiac murmur acute [place] (dyspnea on exertion) ac ione Bilateral carotid artery stenosis chronic Essential (primary) hypertension chronic Nonobstructive atherosclerosis of coronary artery chronic Peripheral vascular occlusive disease chronic Left knee DJD acute Psoriatic arthritis acute [facility] Work Phone: Evaluation note* Diagnosis Onset Date Resolution Status Effusion of left knee joint acute Left knee DJD acute Psoriatic arthritis acute Cardiac murmur acute [place] (dyspnea on exertion) ac ione Bilateral carotid artery stenosis chronic Essential (primary) hypertension chronic Nonobstructive atherosclerosis of coronary artery chronic Peripheral vascular occlusive disease chronic Left knee DJD acute Psoriatic arthritis acute 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 Effusion of left knee joint acute Left knee DJD acute Psoriatic arthritis acute [facility] Work Phone: Evaluation note* Diagnosis Onset Date Resolution Status Left knee DJD acute Psoriatic arthritis acute 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 Effusion of left knee joint acute Left knee DJD acute Psoriatic arthritis acute [facility] Work Phone: Evaluation note* Diagnosis Onset Date Resolution Status 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 Effusion of left knee joint acute Left knee DJD acute Psoriatic arthritis acute Intercostal neuralgia acute Thoracic back pain acute [facility] Work Phone: Evaluation note* Diagnosis Onset Date Resolution Status Effusion of left knee joint acute Left knee DJD acute Psoriatic arthritis acute Intercostal neuralgia acute Thoracic back pain acute Psoriatic arthritis acute Thoracic back pain acute Multiple sclerosis chronic [facility] Work Phone: Evaluation note* Diagnosis Multiple sclerosis (HCC) [facility] Diagnosis Multiple sclerosis (HCC) Multiple sclerosis [facility]* Diagnosis Onset Date Resolution Status Psoriatic arthritis acute Thoracic back pain acute Multiple sclerosis chronic Bilateral carotid artery stenosis chronic Essential (primary) hypertension chronic Nonobstructive atherosclerosis of coronary artery chronic Peripheral vascular occlusive disease [facility] Work Phone: Evaluation note* Diagnosis Onset Date Resolution Status Bilateral carotid artery stenosis chronic Essential (primary) hypertension chronic Nonobstructive atherosclerosis of coronary artery chronic Peripheral vascular occlusive disease chronic [facility] Work Phone: Evaluation note* Diagnosis Multiple sclerosis (HCC)- Primary Multiple sclerosis Cerebrovascular disease, unspecified Primary hypertension Unspecified essential hypertension [facility]* Diagnosis Onset Date Resolution Status Knee joint effusion acute [facility] Work Phone: Evaluation note* Diagnosis Onset Date Resolution Status Knee joint effusion acute Bilateral carotid artery stenosis chronic Essential (primary) hypertension chronic Nonobstructive atherosclerosis of coronary artery chronic Peripheral vascular occlusive disease chronic Acute hyponatremia acute Acute kidney injury acute Dehydration acute Influenza A acute [facility] Work Phone: Evaluation note* Diagnosis [...] A acute New onset atrial fibrillation acute [facility] Work Phone: Evaluation note* Diagnosis Onset Date Resolution Status Knee joint effusion acute Bilateral carotid artery stenosis chronic Essential (primary) hypertension chronic Nonobstructive atherosclerosis of coronary artery chronic Peripheral vascular occlusive disease chronic Acute kidney injury acute Acute hyponatremia resolved Dehydration resolved Atrial fibrillation acute Chest pressure acute Elevated troponin acute New onset atrial fibrillation acute [facility] Work Phone: Evaluation note* Diagnosis Onset Date Resolution Status Knee joint effusion acute Bilateral carotid artery stenosis chronic Essential (primary) hypertension chronic Nonobstructive atherosclerosis of coronary artery chronic Peripheral vascular occlusive disease chronic Acute kidney injury acute Acute hyponatremia resolved Dehydration resolved Atrial fibrillation acute Chest pressure acute Elevated troponin acute New onset atrial fibrillation acute Weakness acute [facility] Work Phone: Evaluation note* Diagnosis [...] Dizziness acute Weakness acute Multiple sclerosis chronic [facility] Work Phone: Evaluation note* Diagnosis [...] hypertension chronic Peripheral vascular occlusive disease chronic [facility] Work Phone: Evaluation note* Diagnosis [...] chronic Peripheral vascular occlusive disease [facility] Work Phone: Evaluation note* Diagnosis Onset [...] chronic Peripheral vascular occlusive disease [facility] Work Phone: Evaluation note* Diagnosis Onset [...] symptoms of anemia resolved Symptomatic anemia resolved [facility] Work Phone: Evaluation note* Diagnosis [facility]ough [facility] [place] [facility] Diagnosis Other specified symptoms and signs involving the circulatory and respiratory systems- Primary Cerebrovascular disease, unspecified [facility] [place] [facility] Diagnosis Multiple sclerosis (HCC) Multiple sclerosis [facility] [place] [facility] Diagnosis Multiple sclerosis (HCC)- Primary Multiple sclerosis Mild cognitive impairment Mild cognitive impairment, so stated Fatigue, unspecified type Deficiency of multiple nutrient elements Other nutritional deficiency [facility] [place] [facility]* Diagnosis Multiple sclerosis (HCC)- Primary Multiple sclerosis Dysphasia Other speech disturbance [facility] Multiple sclerosis (HCC) Multiple sclerosis [facility] Author Sommer Resendiz [facility] November 15, 2023 3:44pm Note Date/Time November 15, 2023 3:14pm [facility] Medical Records Department [address] [place] [address] H&P Exam - Hospitalist 11/15/23 1512 MR#: [id number] Acct: [id number] Name: ANGÉLICA YO Rep #:[id number] : 1955 68 From: Sommer Resendiz MD PCP: Dr. Daron Benton MD Status:ADM IN Location: MS3 RH133-9 HPI - General General Date of Admission: 11/15/23 Date of Service: 11/15/23 Chief Complaint: Poor intake, malaise, fatigue, weakness, N/V/D HPI Narrative The patient is a 68 y/o F w/ PMHx: Hx Cerebral aneurysm, Chronic pain syndrome, HTN, HLD, Hx TIA, Multiple Sclerosis, Nonobstructive CAD, Psoriatic arthritis, PAD, NS SVT, GERD, Hypothyroidism, Carotid disease, Tobacco use who presents to the [facility] ED on 11/15/23 with history of [...] x 1 and 1 L normal saline. [facility] Medical History Angina pectoris Bilateral carotid artery [...] Stomach morphine AdvReac Nausea Verified 11/15/23 11:27 Tequilu-IZH-BfG Reductase AdvReac Nausea Verified 11/15/23 11:27 Inhibitor [Duxjyav-Zlz-Yko Reductase Inhibitor] Family History Mother Cancer CAD [...] 70.4 H, Lymph % (Auto) 14.3 L, [place] % (Auto) 14.5 H, Eos % (Auto) [...] disease, Tobacco use who presents to the [facility] ED on 11/15/23 with history of [...] 16 minutes. Charges/Coding Visit Charges Inpatient E&M: 79986 Init Hosp L3 Procedures Hospitalists Procedures: 85577 Advncd Care Plan 30 Min 11/15/23 1544 <Electronically signed by Sommer Resendiz MD> Cosigner Signature (if applicable): CC: Dr. Sommer Resendiz MD; Dr. Daron Benton MD~ Signed [facility] Work Phone: History and physical note Author Roman Mckeon [facility] December 02, 2023 11:53am Note Date/Time December 02, 2023 1 1:43am [facility] Medical Records Department [address] [place] [id number] H&P Exam - Hospitalist 12/02/23 1140 MR#: [id number] Acct: [id number] Name: ANGÉLICA YO Rep #:[id number] : 1955 68 From: Roman Mckeon MD PCP: Dr. Daron Benton MD Status:ADM IN Location: [facility] [id number] HPI - General General Date of Admission: [...] to a monitored bed for further management [facility] Medical History Angina pectoris Bilateral carotid artery [...] Stomach morphine AdvReac Nausea Verified 11/26/23 12:47 Mwccqpl-QGD-FmH Reductase AdvReac Nausea Verified 11/26/23 12:47 Inhibitor [Azozlou-Brg-Mfx Reductase Inhibitor] Family History Mother Cancer CAD [...] % (Auto) 56.3, Lymph % (Auto) 28.5, Cata[place]oula % (Auto) 12.7 H, Eos % (Auto) [...] Clarity Clear, Urine pH 6.5, Ur Specific [place] 1.015, Urine Protein 15 H, Urine Glucose [...] 18 minutes. Charges/Coding Visit Charges Inpatient E&M: 30818 Init Hosp L3 Procedures Hospitalists Procedures: 27264 Advncd Care Plan 30 Min 12/02/23 1153 <Electronically signed by Roman Mckeon MD> Cosigner Signature (if applicable): CC: Dr. Roman Mckeon MD; Dr. Daron Benton MD~ Signed [facility] Work Phone: [facility] Work Phone: [facility] Work Phone: Hospital Discharge instructions Additional Instructions Please follow-up with your primary care doctor. If your pain gets worse you do not feel you can effectively take care of yourself at home please return to the emergency room. [facility] Work Phone: Hospital Discharge instructions [...] any further concerns or worsening of symptoms [facility] Work Phone: Hospital Discharge instructions Additional Instructions Continue following up outpatient. You need to follow-up with your PCP, make them aware that you no longer taking her Eliquis. Return for any worsening symptoms. Chest x-ray was clear today.[facility] Work Phone: Hospital Discharge instructions Additional Instructions Labs and CAT scan today showed no significant changes in the past. No signs of acute stroke. Call and follow-up with your primary care physician if this is not improving you and he can discuss further imaging of your neck to see if you may have a pinched nerve.[facility] Work Phone: Hospital Discharge instructions Additional Instructions In 2019, Dr. 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 Make an appointment to see him as soon as possible to have this reevaluated.[facility] Work Phone: Hospital Discharge instructions [...] you are at risk of getting internal bleeding.[facility] Work Phone: Hospital Discharge instructions [...] any further concerns or worsening of symptoms. [facility] Work Phone: Hospital Discharge instructionsAdditional Instructions Please continue all of your home medications as directed by your doctor use the capsaicin and oxycodone to help control pain from the shingles and return to the ER should you have any further concernsWUniversity [facility] Work Phone: Hospital Discharge instructionsAdditional Instructions CT brain negative.[facility] Work Phone: Hospital Discharge instructionsAdditional Instructions Please change your Lasix/furosemide dose to 1 pill a day instead of 2. Please stop the telmisartan. These medications can create irritation to your kidney and it was elevated at your workup today. Please contact your digital strategy director to discuss these changes and return to the ER should you have any further concerns.[facility] Work Phone: Progress note Author Kevin Friend [facility] Note Date/Time April 22, 2025 5:49p m [facility] Medical Records Department [address] [place] [address] Progress Note 04/22/25 1747 MR#: [id number] Acct: [id number] Name: ANGÉLICA YO Rep #:[id number] : 1955 69 From: Kevin Gonzalez DO PCP: Dr. Daron Benton MD Status:ADM IN Location: LA3 CL159-9 Progress Note Patient is doing well today. [...] for further workup Visit Charges Inpatient E&M: 27077 Subs Hosp L3 04/22/25 1749 <Electronically signed by Kevin Gonzalez DO> Kevin Gonzalez DO Cosigner Signature (if applicable): CC: ~ Signed [facility] Work Phone: Progress note Author Kevin Gonzalez [facility] Note Date/Time June 09, 2025 5:37 pm [facility] Medical Records Department [address] [place] [address] Progress Note 06/09/25 1736 MR#: [id number] Acct: [id number] Name: ANGÉLICA YO Rep #:[id number] : 1955 69 From: Kevin Gonzalez DO PCP: Dr. Daron Benton MD Status:ADM IN Location: [place] [address] Progress Note Patient has not had any [...] outpatient capsule endoscopy. Visit Charges Inpatient E&M: 22488 Subs Hosp L3 06/09/25 1737 <Electronically signed by Kevin Friend DO> Kevin Friend DO Cosigner Signature (if applicable): CC: ~ Signed [facility] Work Phone: Reason for referral (narrative)* Consultation (Routine) - Pending Review Specialty Diagnoses / Procedures Referred By Hillary christie Referred To Contact Ophthalmology Diagnoses Vision disturbance Procedures MD OFFICE/OUTPATIENT [facility] 60 MINUTES Lizz Lynn APRN - CNP [address] [facility] [address] [place] [id number] Cecilio Gibbs MD [facility] [place] [address] Referral ID Status Reason Start Date Expiration Date Visits Requested Visits Authorized [id number] Pending Review Specialty Services Required 12/14/2023 12/13/2024 1 1 * Therapy (Routine) - Pending Review Specialty Diagnoses / Procedures Referred By Hillary christie Referred To Contact Physical Therapy Diagnoses Dizziness Imbalance Procedures MD OFFICE/OUTPATIENT [facility] 60 MINUTES Lizz Lynn APRN - CNP [address] [facility] [address] [place] [id number] Referral ID Status Reason Start Date Expiration Date Visits Requested Visits Authorized [id number] Pending Review Eval and Treat 12/14/2023 06/11/2024 99 99 Scheduling Instructions Twice weekly x 4 weeks for dizziness and imbalance [facility] (narrative)No reason for referral information availableWUniversity [facility] Work Phone: Summary Purpose Family [...] No February 17, 2022 9:49pm Power of Angio Technologist No February 17 9:49pm Advance Directive Response Recorded Date/ Time Advance Directives No January 18 8:11am Living Will No February 18, 2022 4:14am Power of Angio Technologist No February 18 4:14am Advance Directive Response Recorded Date/ Time Advance Directives No January 18 8:11am Living Will No February 20, 2022 4:54pm Power of Angio Technologist No February 20 4:54pm Advance Directive Response Recorded Date/ Time Advance Directives No January 18 7:11am Living Will No February 20, 2022 3:54pm Power of Angio Technologist No February 20 3:54pm Advance Directive Response Recorded Date/ Time Advance Directives No January 18 7:11am Living Will No November 24 11:31pm Power of Angio Technologist No November 24 023 11:31pm Advance Directive Response Recorded Date/ Time Advance Directives No January 18 8:11am Living Will No November 25 12:31am Power of Angio Technologist No November 25 12:31am Advance Directive Response Recorded Date/ Time Advance Directives No January 18 8:11am Living Will No March 16, 2023 12:46pm Power of Angio Technologist No March 16 12:46pm Advance Directive Response Recorded Date/ Time Advance Directives No January 18 8:11am Living Will No March 31, 2023 1 2:40pm Power of Angio Technologist No March 31, 2023 12:40pm Advance Directive Response Recorded Date/ Time Advance Directives No January 18 8:11am Living Will No April 08, 2023 9 :22am Power of Angio Technologist No April 08, 2023 9:22am Advance Directive Response Recorded Date/ Time Advance Directives No January 18 7:11am Living Will No October 05 023 12:50am Power of Angio Technologist No October 05, 2023 12:50am Advance Directive Response Recorded Date/ Time Advance Directives No January 18 7:11am Living Will No November 15, 2 023 11:28am Power of Angio Technologist No November 15, 2023 11:28am Advance Directive Response Recorded Date/ Time Advance Directives No January 18 7:11am Living Will No November 15, 2 023 4:24pm Power of Angio Technologist No November 15, 2023 4:24pm Advance Directive Response Recorded Date/ Time Advance Directives No January 18 7:11am Living Will No November 18, 2 023 11:47am Power of Angio Technologist No November 18, 2023 11:47am Advance Directive Response Recorded Date/ Time Advance Directives No January 18 7:11am Living Will No November 18 023 3:44pm Power of Angio Technologist No November 18, 2023 3:44pm Advance Directive Response Recorded Date/ Time Advance Directives No January 18 7:11am Living Will No November 26 1:53pm Power of Angio Technologist No November 26 1:53pm Advance Directive Response Recorded Date/ Time Advance Directives No January 18 7:11am Living Will No November 27 9:06am Power of Angio Technologist No November 27 9:06am Advance Directive Response Recorded Date/ Time Advance Directives No January 18 7:11am Living Will No December 02 6:38am Power of Angio Technologist No December 02, 2023 6:38am Advance Directive Response Recorded Date/ Time Advance Directives No January 18 7:11am Living Will No December 02 12:37pm Power of Angio Technologist No December 02, 2023 12:37pm Advance Directive Response Recorded Date/ Time Advance Directives No January 18 7:11am Living Will No January 18, 2024 10:25am Power of Angio Technologist No January 17 10:25am Advance Directive Response Recorded Date/ Time Advance Directives No January 18 8:11am Living Will No February 19, 2024 10:57am Power of Angio Technologist No February 18 10:57am Advance Directive Response Recorded Date/ Time Advance Directives No January 18 8:11am Living Will No February 19, 2024 5:33pm Power of Angio Technologist No February 18 5:33pm Advance Directive Response Recorded Date/ Time Living Will No December 17 11:30am Do you have a Healthcare Power of Angio Technologist? No December 17, 2024 11:30am Do you have a Healthcare Power of Angio Technologist? No April 02, 2025 7:26pm Living Will No December 09 3:59pm Do you have a Healthcare Power of Angio Technologist? No December 09, 2024 3:59pm Living Will No January 11 025 2:51am Do you have a Healthcare Power of Angio Technologist? No January 11, 2025 2:51am Advance Directives No January 18 8:11am Advance Directive Response Recorded Date/ Time Do you have a Healthcare Power of Angio Technologist? No April 02, 2025 7:26pm Do you have a Healthcare Power of Angio Technologist? No April 11, 2025 1:19pm Living Will No January 11 025 2:51am Do you have a Healthcare Power of Angio Technologist? No January 11, 2025 2:51am Do you have a Healthcare Power of Angio Technologist? No April 17, 2025 10:20pm Advance Directives No January 18 8:11am Advance Directive Response Recorded Date/ Time Do you have a Healthcare Power of Angio Technologist? No April 02, 2025 7:26pm Do you have a Healthcare Power of Angio Technologist? No April 11, 2025 1:19pm Do you have a Healthcare Power of Angio Technologist? No April 18, 2025 6:43pm Living Will No January 11 025 2:51am Do you have a Healthcare Power of Angio Technologist? No January 11, 2025 2:51am Do you have a Healthcare Power of Angio Technologist? No April 17, 2025 10:20pm Advance Directives No January 18 8:11am Advance Directive Response Recorded Date/ Time Do you have a Healthcare Power of Angio Technologist? No April 02, 2025 7:26pm Do you have a Healthcare Power of Angio Technologist? No April 11, 2025 1:19pm Do you have a Healthcare Power of Angio Technologist? No April 18, 2025 9:53pm Living Will No January 11 2:51am Do you have a Healthcare Power of Angio Technologist? No January 11, 2025 2:51am Do you have a Healthcare Power of Angio Technologist? No April 17, 2025 10:20pm Advance Directives No January 18 8:11am Advance Directive Response Recorded Date/ Time Do you have a Healthcare Power of Angio Technologist? No April 02, 2025 7:26pm Do you have a Healthcare Power of Angio Technologist? No April 11, 2025 1:19pm Do you have a Healthcare Power of Angio Technologist? No April 18, 2025 9:53pm Do you have a Healthcare Power of Angio Technologist? No April 17, 2025 10:20pm Advance Directives No January 18 8:11am Advance Directive Response Recorded Date/ Time Do you have a Healthcare Power of Angio Technologist? No April 02, 2025 7:26pm Do you have a Healthcare Power of Angio Technologist? No April 11, 2025 1:19pm Do you have a Healthcare Power of Angio Technologist? No April 18, 2025 9:53pm Do you have a Healthcare Power of Angio Technologist? No May 19, 2025 10:27pm Do you have a Healthcare Power of Angio Technologist? No April 17, 2025 10:20pm Advance Directives No January 18 8:11am Advance Directive Response Recorded Date/ Time Do you have a Healthcare Power of Angio Technologist? No April 02, 2025 7:26pm Do you have a Healthcare Power of Angio Technologist? No April 11, 2025 1:19pm Do you have a Healthcare Power of Angio Technologist? No April 18, 2025 9:53pm Do you have a Healthcare Power of Angio Technologist? No May 19, 2025 10:27pm Do you have a Healthcare Power of Angio Technologist? No April 17, 2025 10:20pm Do you have a Healthcare Power of Angio Technologist? No June 03, 2025 2:30am Advance Directives No January 18 8:11am Advance Directive Response Recorded Date/ Time Do you have a Healthcare Power of Angio Technologist? No April 02, 2025 7:26pm Do you have a Healthcare Power of Angio Technologist? No April 11, 2025 1:19pm Do you have a Healthcare Power of Angio Technologist? No April 18, 2025 9:53pm Do you have a Healthcare Power of Angio Technologist? No May 19, 2025 10:27pm Do you have a Healthcare Power of Angio Technologist? No April 17, 2025 10:20pm Do you have a Healthcare Power of Angio Technologist? No June 03, 2025 8:49am Advance Directives No January 18 8:11am Advance Directive Response Recorded Date/ Time Do you have a Healthcare Power of Angio Technologist? No April 02, 2025 7:26pm Do you have a Healthcare Power of Angio Technologist? No April 11, 2025 1:19pm Do you have a Healthcare Power of Angio Technologist? No April 18, 2025 9:53pm Do you have a Healthcare Power of Angio Technologist? No May 19, 2025 10:27pm Do you have a Healthcare Power of Angio Technologist? No July 05, 2025 8:52pm Do you have a Healthcare Power of Angio Technologist? No April 17, 2025 10:20pm Do you have a Healthcare Power of Angio Technologist? No June 03, 2025 8:49am Advance Directives No January 18 8:11am Advance Directive Response Recorded Date/ Time Do you have a Healthcare Power of Angio Technologist? No April 02, 2025 7:26pm Do you have a Healthcare Power of Angio Technologist? No April 11, 2025 1:19pm Do you have a Healthcare Power of Angio Technologist? No April 18, 2025 9:53pm Do you have a Healthcare Power of Angio Technologist? No May 19, 2025 10:27pm Do you have a Healthcare Power of Angio Technologist? No July 05, 2025 8:52pm Do you have a Healthcare Power of Angio Technologist? No July 22, 2025 11:31pm Do you have a Healthcare Power of Angio Technologist? No April 17, 2025 10:20pm Do you have a Healthcare Power of Angio Technologist? No June 03, 2025 8:49am Advance Directives No January 18 8:11am Advance Directive Response Recorded Date/ Time Do you have a Healthcare Power of Angio Technologist? No April 11, 2025 1:19pm Do you have a Healthcare Power of Angio Technologist? No April 18, 2025 9:53pm Do you have a Healthcare Power of Angio Technologist? No May 19, 2025 10:27pm Do you have a Healthcare Power of Angio Technologist? No July 05, 2025 8:52pm Do you have a Healthcare Power of Angio Technologist? No July 22, 2025 11:31pm Do you have a Healthcare Power of Angio Technologist? No July 31, 2025 9:02pm Do you have a Healthcare Power of Angio Technologist? No April 17, 2025 10:20pm Do you have a Healthcare Power of Angio Technologist? No June 03, 2025 8:49am Advance Directives No January 18 8:11am Advance Directive Response Recorded Date/ Time Do you have a Healthcare Power of Angio Technologist? No April 11, 2025 1:19pm Do you have a Healthcare Power of Angio Technologist? No April 18, 2025 9:53pm Do you have a Healthcare Power of Angio Technologist? No May 19, 2025 10:27pm Do you have a Healthcare Power of Angio Technologist? No July 05, 2025 8:52pm Do you have a Healthcare Power of Angio Technologist? No July 22, 2025 11:31pm Do you have a Healthcare Power of Angio Technologist? No July 31, 2025 9:02pm Do you have a Healthcare Power of Angio Technologist? No April 17, 2025 10:20pm Do you have a Healthcare Power of Angio Technologist? No June 03, 2025 8:49am Do you have a Healthcare Power of Angio Technologist? No August 05, 2025 8:54pm Advance Directives No January 18 8:11am Chief [...] Weakness Weakness Weakness Weakness Weakness Weakness S/P [facility] 11/21/23 DIZZINESS,IMBALANCE/RX HERE fall Reason for [...] Weakness Weakness Weakness Weakness Weakness Weakness S/[facility] 11/21/23 DIZZINESS,IMBALANCE/RX HERE fall FALL, HEAD [...] Weakness Weakness Weakness Weakness Weakness Weakness S/[facility] 11/21/23 DIZZINESS,IMBALANCE/RX HERE fall FALL, HEAD [...] Weakness Weakness Weakness Weakness Weakness Weakness [facility] 11/21/23 DIZZINESS,IMBALANCE/RX HERE fall FALL, HEAD [...] Weakness Weakness Weakness Weakness Weakness Weakness [facility] 11/21/23 DIZZINESS,IMBALANCE/RX HERE fall FALL, HEAD [...] pain December 17, 2024 1 0:12am S/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 12/11December 19, 2024 1 :16pm 3 [...] vascular occlusive disease Javan goyal 2024 1:16pm Excwr-0-igwegkbfrtl deficiency carrier F ebruary 2024 1:52pm Hypoxemia December 24, 2024 1 :52pm Emphysema of lung December 24, 2024 1 :52pm Nicotine dependence, cigarettes, uncompl icated December 24, 2024 1:52pm Smoking greater than 30 pack years Febru [email or web address] 1:52pm 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 January 10, [...] 2024 1:14pm Chief Complaint Admit Date [facility] 12/11December 19, 2024 1 :16pm 3 [...] vascular occlusive disease Ja nuary 2024 1:16pm Tvczc-5-katzwappjmu deficiency carrier F ebruary 2024 1:52pm Hypoxemia December 24, 2024 1 :52pm Emphysema of lung December 24, 2024 1 :52pm Nicotine dependence, cigarettes, uncompl icated December 24, 2024 1:52pm Smoking greater than 30 pack years Febru vince 2024 1:52pm 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 January 10, [...] 12:30 pm Reason for Visit Admit Date Ebowo-9-eixonaiwvfv deficiency carrier F ebruary 2024 1:52pm Hypoxemia December 24, 2024 1 :52pm Emphysema of lung December 24, 2024 1 :52pm Nicotine dependence, cigarettes, uncompl icated December 24, 2024 1:52pm Smoking greater than 30 pack years 2024 1:52pm 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 January 10, [...] Admit Date 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 January 10, [...] 8: 38pm headache, hypertension July 22 9:53pm Chief Complaint Admit Date fall April 11, 2025 1:16p m constipation [...] 8: 38pm headache, hypertension July 22 9:53pm chest pain July 31, 2025 9:02pm S/P [facility] 07/23August 05, 2025 12:46pm Reason for Visit Admit Date Acute on [...] Symptomatic anemia June 03, 2025 7:37 am Chest pressure August 05, 2025 12:46pm Essential hypertension August 05, 2 025 12:46pm Mitral stenosis August 05, 2025 12:46pm Paroxysmal atrial fibrillation August 05, 2025 12:46pm Bilateral carotid artery stenosis Septem 2024 12:46pm HLD (hyperlipidemia) August 05 12:46pm 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 August 05, 2025 12:46pm Chief Complaint Admit Date fall April 11, 2025 1:16p m constipation [...] 8: 38pm headache, hypertension July 22 9:53pm chest pain July 31, 2025 9:02pm S/P [facility] 07/23August 05, 2025 12:46pm chest pain August 05, 2025 8:53pm Reason for Referral Specialty Diagnoses / Procedures Referred By Hillary t Referred To Contact Cardiology Diagnoses Other specified symptoms and signs involving the circulatory and respiratory systems Cerebrovascular disease, unspecified Procedures Vascular US carotid artery duplex bilateral Kristopher Main MD [address] [place] [address] Referral ID Status Reason Start Date Expiration Date Visits Requested Visits Authorized [id number] Pending Review Perform Procedure 2 03/02/2023 1 1 Additional Source Comments INFORMATION SOURCE (unrecogn ized section and content) DATE CREATED AUTHOR 05/13/2018 [facility] DATE CREATED AUTHOR AUTHOR'S ORGANIZ ATION 05/13/2018 [facility] DATE CREATED AUTHOR AUTHOR'S ORGANIZ ATION 12/13/2021 [facility] DATE CREATED AUTHOR AUTHOR'S ORGANIZ ATION 01/16/2024 [facility] ([place]) DATE CREATED AUTHOR AUTHOR'S ORGANIZ ATION 07/25/2025 [facility] DATE CREATED AUTHOR AUTHOR'S ORGANIZ ATION [facility] Goals (unrecognized section and content) Goals [...] Daron Benton MD Family Provider Active Dr. Daorn Benton MD Primary Care Provider Active Team [...] Primary Care Provider, Attending P rovider Active Supervisor [employer] Relationship Specialty Start Date End Date Daron Benton [address] [place] [address] PCP - General 06/23/20 Supervisor [employer]film Duplicating [employer] Relationship Specialty Start Date End Date Daron Benton [address] [place] [address] PCP - General 06/23/20 Supervisor [employer] Duplicating [employer] Relationship Specialty Start Date End Date Daron Benton [address] [place] [address] PCP - General 06/23/20 Team Status: Inactive [...] Dr. Yasmani Haynes DO Emergency Provider Active Supervisor [employer] Relationship Specialty Start Date End Date Daron Benton [address] [place] [address] PCP - General 06/23/20 Team Status: Inactive [...] Kebede MD Emergency Provider Active Dr. Sommer Resedniz MD Admit Provider, Attending Prov ider Active [...] Kristopher Hernández MD Other Provider Active Arleen Esrtada MD Other Provider Active Dr. Silvino Schmidt MD Other Provider Active Dr. Rima Riggins MD Other Provider Active Dr. Sarkis Brown MD Other Provider Active Dr. Simon Tellze MD Other Provider Active Dr. Michele Rascon [...] Keyona Davidson MD Other Provider Active Dr. Sahcin Murillo MD Attending Provider, Other Provider Active [...] MD Other Provider Active Maurilio Garland , Other Provider Active Phil Terry MD Other [...] Gabriella Simpson , Emergency Provider Active Dr. Rmoan Mckeon MD Admit Provider, Other Provider A ctive Dr. Ruby Wynn MD Other Provider Active Dr. Kiley Carpenter MD Other Provider Active Arleen Estrada MD Other Provider Active Dr. Rima Riggins MD Other Provider Active Dr. Sachin Murillo MD Attending Provider, Other Provider Active Deepika Graahm MD Other Provider Active Mauriliobritt Garland , [...] Active Keyona Davidson MD Other Provider Active Supervisor [employer] Relationship Specialty Start Date End Date Daron Benton [address] [place] [phone] PCP - General 06/23/20 Team Status: Active [...] Simon Tellez MD Other Provider Active Dr. iMchele Rascon MD Other Provider Active Dr. Kirsten [...] Smiley MD Attending Provider, Referring Provider Active Supervisor [employer] Relationship Specialty Start Date End Date Daron Benton MD [address] [place] [id number] PCP - General Family Medicine 03/12/19 Tye Barnett MD [address] [place] [address] Vascular Surgery 12/22/17 Supervisor [employer] Duplicating Unit Relationship Specialty Start Date End Date Daron Benton [address] [facility] [address] [place] [phone] PCP - General 06/23/20 Supervisor [employer]film Duplicating Unit Relationship Specialty Start Date End Date Daron Benton [address] [facility] [address] [place] [address] PCP - General 06/23/20 Supervisor [employer]film Duplicating Unit Relationship Specialty Start Date End Date Daron Benton [address] [facility] [address] [place] [phone] PCP - General 06/23/20 Supervisor [employer]film Duplicating Unit Relationship Specialty Start Date End Date Daron Benton [address] [facility] [address] [place] [phone] PCP - General 06/23/20 Team Status: Active [...] April 02, 2025 End: April 02, 2025 Supervisor [employer] Duplicating [employer] Relationship Specialty Start Date End Date Daron Benton [address] [facility] [address] [place] [address] PCP - General 06/23/20 Team Status: Inactive [...] Active Start: April 21, 2025 Dr. Roman Mckoen MD Other Provider Active Star t: April [...] May 06, 2025 End: May 06, 2025 Supervisor [employer] Duplicating [employer] Relationship Specialty Start Date End Date Daron Benton [address] [place] [phone] PCP - General 06/23/20 Team Status: Active [...] April 18, 2025 Dr. Yasmani Haynes , Referring Provider Active Start: April 17, 2025 [...] Active Start: June 09, 2025 Dr. Roman cMkeon MD Admit Provider Active Star t: June [...] Provider Active Start: April 19, 2025 Dr. Roamn Mckeon MD Attending Provider Active Start: April [...] Active Star t: June 03, 2025 Dr. Romna Mckeon MD Referring Provider Active Start: June [...] 2025 End: June 12, 2025 Karen Dias MULTI TOWNSHIP ASSESSOR, MULTI TOWNSHIP ASSESSOR-C Attending Provider Active Start: June 12, 2025 [...] 2025 End: June 10, 2025 Karen Dias MULTI TOWNSHIP ASSESSOR, MULTI TOWNSHIP ASSESSOR-C Attending Provider Active Start: June 10, 2025 End: June 10, 2025 Team Status: Inactive Member Role/Relationship Status Dates Dr. Daron Benton MD Primary Care Provider Active Start: June 12, 2025 End: June 12, 2025 Karen Dias MULTI TOWNSHIP ASSESSOR, MULTI TOWNSHIP ASSESSOR-C Attending Provider Active Start: June 12, 2025 [...] Inactive Member Role/Relationship Status Dates Dr. Daron Bneton MD Primary Care Provider Active Start: April [...] Active Start: April 20, 2025 Dr. Jeffy Willoguhby MD Emergency Provider Active Sta rt: April [...] Star t: June 05, 2025 Dr. Kevin Gonzaelz DO Attending Provider Active Start: June 05, [...] 2025 End: June 10, 2025 Karen Dias MULTI TOWNSHIP ASSESSOR, MULTI TOWNSHIP ASSESSOR-C Attending Provider Active Start: June 10, 2025 End: June 10, 2025 Team Status: Inactive Member Role/Relationship Status Dates Dr. Daron Benton MD Primary Care Provider Active Start: June 12, 2025 End: June 12, 2025 Karen Dias NP, MULTI TOWNSHIP ASSESSOR-C Attending Provider Active Start: June 12, 2025 [...] July 22, 2025 End: July 23, 2025 Supervisor [employer] Du[employer]ating [employer] Relationship Specialty Start Date End Date Daron Benton [address] [place] [phone] PCP - General 06/23/20 Team Status: Active Member Role/Relationship Status Dates Dr. Daron Benton MD Primary care physician Active Team Status: Inactive Member Role/Relationship Status Dates Dr. Daron Benton MD Primary care physician Active Start: April 11, 2025 End: April 11, 2025 Dr. Ramírez Onofre MD Attending physician Active Start: April 11, 2025 End: April 11, 2025 Dr. Ramírez Onofre MD Emergency Department Physician Ac tive Start: April 11, 2025 End: April 11, 2025 Team Status: Inactive Member Role/Relationship Status Dates Dr. Daron Benton MD Primary care physician Active Start: April 17, 2025 End: April 18, 2025 Dr. Yasmani Haynes , Attending physician Active Start: April 17, 2025 End: April 18, 2025 Dr. Yasmani Haynes , Referring Provider Active Start: April 17, 2025 End: April 18, 2025 Dr. Yasmani Haynes DO Emergency Department Physician A ctive Start: April 17, 2025 End: April 18, 2025 Team Status: Inactive Member Role/Relationship Status Dates Dr. Daron Benton MD Primary care physician Active Start: April 18, 2025 End: April 22, 2025 Dr. Jeffy Willoughby MD Emergency Department Physician Acti ve Start: April 18, 2025 End: April 22, 2025 Dr. Sachin Murillo MD Admitting physician Active Start: April 18 End: April 22, 2025 Dr. Sachin Murillo MD Referring Provider Active Start: April 18 End: April 22, 2025 Dr. Sachin Murillo MD Nurse Practitioner Active Start: April 18 End: April 22, 2025 Dr. Roman Mckeon MD Attending physician Active Start: April 18, 2025 End: April 22, 2025 Team Status: Active Member Role/Relationship Status Dates Dr. Daron Benton MD Primary care physician Active Start: April 18, 2025 Dr. Jeffy Willoughby MD Emergency Department Physician Acti ve Start: April 18, 2025 Dr. Sachin Murillo MD Admitting physician Active Start: April 18 Dr. Sachin Murillo MD Attending physician Active Start: April 18 Dr. Sachin Murillo MD Nurse Practitioner Active Start: April 18 Team Status: Active Member Role/Relationship Status Dates Dr. Daron Benton MD Primary care physician Active Start: April 19, 2025 Dr. Jeffy Willoughby MD Emergency Department Physician Acti ve Start: April 19, 2025 Dr. Sachin Murillo MD Admitting physician Active Start: April 19 Dr. Sachin Murillo MD Nurse Practitioner Active Start: April 19 Dr. Roman Mckeon MD Attending physician Active Start: April 19, 2025 Dr. Roman Mckeon MD Nurse Practitioner Active Start: April 19, 2025 Team Status: Active Member Role/Relationship Status Dates Dr. Daron Benton MD Primary care physician Active Start: April 20, 2025 Dr. Jeffy Willoughby MD Emergency Department Physician Acti ve Start: April 20, 2025 Dr. Sachin Murillo MD Admitting physician Active Start: April 20 Dr. Sachin Murillo MD Nurse Practitioner Active Start: April 20 Dr. Roman Mckeon MD Attending physician Active Start: April 20, 2025 Dr. Roman Mckeon MD Nurse Practitioner Active Start: April 20, 2025 Team Status: Active Member Role/Relationship Status Dates Dr. Daron Benton MD Primary care physician Active Start: April 20, 2025 Dr. Jeffy Willoughby MD Emergency Department Physician Acti ve Start: April 20, 2025 Dr. Sachin Murillo MD Admitting physician Active Start: April 20 Dr. Sachin Murillo MD Referring Provider Active Start: April [address] Dr. Sachin Murillo MD Nurse Practitioner Active Start: April 20 Dr. Roman Mckeon MD Nurse Practitioner Active Start: April 20, 2025 Dr. Kevin Gonzalez DO Attending physician Active Start: April 20, 2025 Team Status: Active Member Role/Relationship Status Dates Dr. Daron Benton MD Primary care physician Active Start: April 21, 2025 Dr. Jeffy Willoughby MD Emergency Department Physician Acti ve Start: April 21, 2025 Dr. Sachin Murillo MD Admitting physician Active Start: April [address] Dr. Sachin Murillo MD Nurse Practitioner Active Start: April 21 Dr. Roman Mckeon MD Attending physician Active Start: April 21, 2025 Dr. Roman Mckeon MD Nurse Practitioner Active Start: April 21, 2025 Team Status: Active Member Role/Relationship Status Dates Dr. Daron Benton MD Primary care physician Active Start: April 21, 2025 Dr. Jeffy Willoughby MD Emergency Department Physician Acti ve Start: April 21, 2025 Dr. Sachin Murillo MD Admitting physician Active Start: April 21 Dr. Sachin Murillo MD Referring Provider Active Start: April [address] Dr. Sachin Murillo MD Nurse Practitioner Active Start: April 21 Dr. Roman Mckeon MD Nurse Practitioner Active Start: April 21, 2025 Dr. Kevin Gonzalez DO Attending physician Active Start: April 21, 2025 Team Status: Active Member Role/Relationship Status Dates Dr. Daron Benton MD Primary care physician Active Start: April 22, 2025 Dr. Jeffy Willoughby MD Emergency Department Physician Acti ve Start: April 22, 2025 Dr. Sachin Murillo MD Admitting physician Active Start: April 22 Dr. Sachin Murillo MD Nurse Practitioner Active Start: April 22 Dr. Roman Mckeon MD Attending physician Active Start: April 22, 2025 Dr. Roman Mckeon MD Nurse Practitioner Active Start: April 22, 2025 Team Status: Active Member Role/Relationship Status Dates Dr. Daron Benton MD Primary care physician Active Start: April 22, 2025 Dr. Jeffy Willoughby MD Emergency Department Physician Acti ve Start: April 22, 2025 Dr. Sachin Murillo MD Admitting physician Active Start: April 22 Dr. Sachin Murillo MD Referring Provider Active Start: April 22 Dr. Sachin Murillo MD Nurse Practitioner Active Start: April 22 Dr. Roman Mckeon MD Nurse Practitioner Active Start: April 22, 2025 Dr. Kevin Gonzalez DO Attending physician Active Start: April 22, 2025 Team Status: Inactive Member Role/Relationship Status Dates Dr. Daron Benton MD Primary care physician Active Start: May 06, 2025 End: May 06, 2025 Dr. Daron Benton MD Referring Provider Active St art: May 06, 2025 End: May 06, 2025 STEPHANY Nunez Attending physician Active Start: May 06, 2025 End: May 06, 2025 Team Status: Inactive Member Role/Relationship Status Dates Dr. Daron Benton MD Primary care physician Active Start: May 15, 2025 End: May 15, 2025 Dr. Daron Benton MD Nurse Practitioner Active St art: May 15, 2025 End: May 15, 2025 Dr. Tye Barnett MD Attending physician Active Start: May 15, 2025 End: May 15, 2025 Dr. Tye Barnett MD Referring Provider Active Start: May 15, 2025 End: May 15, 2025 Team Status: Inactive Member Role/Relationship Status Dates Dr. Daron Benton MD Primary care physician Active Start: May 19, 2025 End: May 19, 2025 Dr. Yasmani Haynes DO Attending physician Active Start: May 19, 2025 End: May 19, 2025 Dr. Yasmani Haynes DO Emergency Department Physician A ctive Start: May 19, 2025 End: May 19, 2025 Team Status: Inactive Member Role/Relationship Status Dates Dr. Daron Benton MD Primary care physician Active Start: May 20, 2025 End: May 20, 2025 STEPHANY Harrington Attending physician Active Start: May 20, 2025 End: May 20, 2025 STEPHANY Harrington Referring Provider Active Start: May 20, 2025 End: May 20, 2025 Team Status: Inactive Member Role/Relationship Status Dates Dr. Daron Benton MD Primary care physician Active Start: June 03, 2025 End: June 09, 2025 Dr. Yasmani Haynes DO Emergency Department Physician A ctive Start: June 03, 2025 End: June 09, 2025 Dr. Roman Mckeon MD Admitting physician Active Start: June 03, 2025 End: June 09, 2025 Dr. Roman Mckeon MD Nurse Practitioner Active Start: June 03, 2025 End: June 09, 2025 Dr. Dex Worrell DO Attending physician Active Start: June 03, 2025 End: June 09, 2025 Team Status: Active Member Role/Relationship Status Dates Dr. Daron Benton MD Primary care physician Active Start: June 03, 2025 Dr. Yasmani Hyanes DO Emergency Department Physician A ctive Start: June 03, 2025 Dr. Roman Mckeon MD Admitting physician Active Start: June 03, 2025 Dr. Roman Mckeon MD Attending physician Active Start: June 03, 2025 Dr. Roman Mckeon MD Nurse Practitioner Active Start: June 03, 2025 Team Status: Active Member Role/Relationship Status Dates Dr. Daron Benton MD Primary care physician Active Start: June 03, 2025 Dr. Yasamni Haynes DO Emergency Department Physician A ctive Start: June 03, 2025 Dr. Roman Mckeon MD Admitting physician Active Start: June 03, 2025 Dr. Roman Mckeon MD Referring Provider Active Start: June 03, 2025 Dr. Roman Mckeon MD Nurse Practitioner Active Start: June 03, 2025 Dr. Kevin Gonzalez DO Attending physician Active Start: June 03, 2025 Team Status: Active Member Role/Relationship Status Dates Dr. Daron Benton MD Primary care physician Active Start: June 04, 2025 Dr. Yasmani Haynes DO Emergency Department Physician A ctive Start: June 04, 2025 Dr. Roman Mckeon MD Admitting physician Active Start: June 04, 2025 Dr. Roman Mckeon MD Attending physician Active Start: June 04, 2025 Dr. Roman Mckeon MD Nurse Practitioner Active Start: June 04, 2025 Team Status: Active Member Role/Relationship Status Dates Dr. Daron Benton MD Primary care physician Active Start: June 04, 2025 Dr. Yasmani Haynes DO Emergency Department Physician A ctive Start: June 04, 2025 Dr. Roman Mckeon MD Admitting physician Active Start: June 04, 2025 Dr. Roman Mckeon MD Referring Provider Active Start: June 04, 2025 Dr. Roman Mckeon MD Nurse Practitioner Active Start: June 04, 2025 Dr. Kevin Gonzalez DO Attending physician Active Start: June 04, 2025 Team Status: Active Member Role/Relationship Status Dates Dr. Daron Benton MD Primary care physician Active Start: June 05, 2025 Dr. Yasmani Haynes DO Emergency Department Physician A ctive Start: June 05, 2025 Dr. Roman Mckeon MD Admitting physician Active Start: June 05, 2025 Dr. Roman Mckeon MD Attending physician Active Start: June 05, 2025 Dr. Roman Mckeon MD Nurse Practitioner Active Start: June 05, 2025 Team Status: Active Member Role/Relationship Status Dates Dr. Daron Benton MD Primary care physician Active Start: June 05, 2025 Dr. Yasmani Haynes DO Emergency Department Physician A ctive Start: June 05, 2025 Dr. Roman Mckeon MD Admitting physician Active Start: June 05, 2025 Dr. Roman Mckeon MD Nurse Practitioner Active Start: June 05, 2025 Dr. Kevin Gonzalez DO Attending physician Active Start: June 05, 2025 Dr. Dex Worrell DO Referring Provider Active Start: June 05, 2025 Team Status: Active Member Role/Relationship Status Dates Dr. Daron Benton MD Primary care physician Active Start: June 06, 2025 Dr. Yasmani Haynes DO Emergency Department Physician A ctive Start: June 06, 2025 Dr. Roman Mckeon MD Admitting physician Active Start: June 06, 2025 Dr. Roman Mckeon MD Attending physician Active Start: June 06, 2025 Dr. Roman Mckeon MD Nurse Practitioner Active Start: June 06, 2025 Team Status: Active Member Role/Relationship Status Dates Dr. Daron Benton MD Primary care physician Active Start: June 07, 2025 Dr. Yasmani Haynes DO Emergency Department Physician A ctive Start: June 07, 2025 Dr. Romna Mckeon MD Admitting physician Active Start: June 07, 2025 Dr. Roman Mckeon MD Attending physician Active Start: June 07, 2025 Dr. Roman Mckeon MD Nurse Practitioner Active Start: June 07, 2025 Team Status: Active Member Role/Relationship Status Dates Dr. Daron Benton MD Primary care physician Active Start: June 08, 2025 Dr. Yasmani Haynes DO Emergency Department Physician A ctive Start: June 08, 2025 Dr. Roman Mckeon MD Admitting physician Active Start: June 08, 2025 Dr. Roman Mckeon MD Nurse Practitioner Active Start: June 08, 2025 Dr. Dex Worrell DO Attending physician Active Start: June 08, 2025 Dr. Dex Worrell DO Nurse Practitioner Active Start: June 08, 2025 Team Status: Active Member Role/Relationship Status Dates Dr. Daron Benton MD Primary care physician Active Start: June 09, 2025 Dr. Yasmani Haynes DO Emergency Department Physician A ctive Start: June 09, 2025 Dr. Roman Mckeon MD Admitting physician Active Start: June 09, 2025 Dr. Roman Mckeon MD Nurse Practitioner Active Start: June 09, 2025 Dr. Dex Worrell DO Attending physician Active Start: June 09, 2025 Dr. Dex Worrell DO Nurse Practitioner Active Start: June 09, 2025 Team Status: Active Member Role/Relationship Status Dates Dr. Daron Benton MD Primary care physician Active Start: June 09, 2025 Dr. Yasmani Haynes DO Emergency Department Physician A ctive Start: June 09, 2025 Dr. Roman Mckeon MD Admitting physician Active Start: June 09, 2025 Dr. Roman Mckeno MD Nurse Practitioner Active Start: June 09, 2025 Dr. Dex Worrell DO Referring Provider Active Start: June 09, 2025 Dr. Dex Worrell DO Nurse Practitioner Active Start: June 09, 2025 Dr. Kevin Gonzalez DO Attending physician Active Start: June 09, 2025 Team Status: Active Member Role/Relationship Status Dates Dr. Daron Benton MD Primary care physician Active Start: June 10, 2025 Lucas CHAWLA MD Attending physician Active Start: June 10, 2025 Team Status: Inactive Member Role/Relationship Status Dates Dr. Daron Benton MD Primary care physician Active Start: June 10, 2025 End: June 10, 2025 Karen Dias NP, [employer]ESSOR-C Attending physician Active Start: June 10, 2025 End: June 10, 2025 Team Status: Inactive Member Role/Relationship Status Dates Dr. Daron Benton MD Primary care physician Active Start: June 12, 2025 End: June 12, 2025 Karen Dias [employer] ASSESSOR, [employer]ESSOR-C Attending physician Active Start: June 12, 2025 End: June 12, 2025 Team Status: Inactive Member Role/Relationship Status Dates Dr. Daron Benton MD Primary care physician Active Start: June 16, 2025 End: June 16, 2025 Dr. Lucas Wyatt MD Attending physician Active Start: June 16, 2025 End: June 16, 2025 Team Status: Active Member Role/Relationship Status Dates Dr. Daron Benton MD Primary care physician Active Start: June 17, 2025 Lucas CHAWLA MD Attending physician Active Start: June 17, 2025 Team Status: Active Member Role/Relationship Status Dates Dr. Daron Benton MD Primary care physician Active Start: June 24, 2025 Lucas CHAWLA MD Attending physician Active Start: June 24, 2025 Team Status: Inactive Member Role/Relationship Status Dates Dr. Daron Benton MD Primary care physician Active Start: July 05, 2025 End: July 05, 2025 Dr. Jaya Campbell DO Attending physician Active Star t: July 05, 2025 End: July 05, 2025 Dr. Jaya Campbell DO Emergency Department Physician Active Start: July 05, 2025 End: July 05, 2025 Team Status: Inactive Member Role/Relationship Status Dates Dr. Daron Benton MD Primary care physician Active Start: July 22, 2025 End: July 23, 2025 Dr. Ramírez Onofre MD Attending physician Active Start: July 22, 2025 End: July 23, 2025 Dr. Ram[facility] Active Start: July 22, 2025 End: July 23, 2025 Team Status: Inactive Member Role/Relationship Status Dates Dr. Daron Benton MD Primary care physician Active Start: July 31, 2025 End: August 01, 2025 Dr. Jeffy Willoughby MD Attending physician Active St art: July 31, 2025 End: August 01, 2025 Dr. Jeffy Willoughby MD Emergency Department Physician Active Start: July 31, 2025 End: August 01, 2025 Team Status: Inactive Member Role/Relationship Status Dates Dr. Daron Benton MD Primary care physician Active Start: August 05, 2025 End: August 05, 2025 Dr. Daron Benton MD Referring Provider Active St art: August 05, 2025 End: August 05, 2025 Betsey PEÑA, PA Attending physician Active Start: August 05, 2025 End: August 05, 2025 Team Status: Inactive Member Role/Relationship Status Dates Dr. Daron Benton MD Primary care physician Active Start: August 05, 2025 End: August 06, 2025 Dr. Jeffy Willoughby MD Emergency Department Physician Active Start: August 05, 2025 End: August 06, 2025 Reason for Visit (unrecogniz ed section [...] or prosecute any alcohol or drug abuse patient.[facility] FOR RECORDS PERTAINING TO PATIENTS WHO [...] BE BASED ON THE PRIMARY CLINICAL RECORDS. [facility] [employer] [facility]. provides no warranty or guarantee of the accuracy or completeness of information in this document.
--- OUTSIDE RECORDS SUMMARY | 2025-08-09 00:04 | XMS RPT_ITS | CCD ---
Author Organization [facility] CliniSyid Care Team Providers Care Photocopy Operator Name Role Phone YOGESH ONOFRE Unavailable Unavailabl e ZHANE PARRA Unavailable Unavailable YOGESH ONOFRE Unavailable Unavailable ZHANE DE Unavailable Unavailable GEOVANI DEA Janett Unavailable Unavailable Dr. Daron Benton Primary Care Provider [phone] Daron Benton Referring Provider Dr. Kai Jacobson Attending Provider MARIANA Davenport Attending Provider Dr. Daron Benton Primary Care Provider [phone] Daron Bneton Referring Provider Dr. Daron Benton Primary Care [...] Attending Provider Dr. Orlando Jacob Attending Provider [phone] Daron Benton Primary Care [...] Attending Provider Dr. Michele Kebede Emergency Provider [phone] Dr. Sommer Resendiz Admit Provider Dr. Sommer Resendiz Other Provider Dr. Hi Garcia Attending Provider Dr. Hi Garcia Other Provider Dr. Sachin Murillo Attending Provider Dr. Sachin Murillo Other Provider Dr. Dangelo Gallardo Attending Provider Dr. Daron Benotn Primary Care Provider Dr. Daron Benton Referring [...] Other Provider Dr. Sarkis Brown Other Provider [phone] Simon Tellez Other Provider Dr. Michele Rascon Other Provider Dr. Kirsten Azevedo Other Provider Dr. Joseph Desai Other Provider Dr. Samina Mortensen Other Provider Unavailable MD Keyona Davidson Other Provider Unavailable Dr. Daniel Edmonds Other Provider Dr. Isaias Scherer Other Provider Dr. Jorge Hurtado Attending Provider Dr. Jroge Hurtado Other Provider Dr. Brandon Gaming Other Provider Dr. Anita Amezcua Other Provider Dr. Pamela Pan Other Provider Unavailable Dr. Go Alejo Other Provider Dr. Jesus Alfonso Other Provider Dr. Kehinde Inman Other Provider Dr. Mendez Oviedo Other Provider [phone] MD Deepika Graham Other Provider MS Maurilio Garland Other Provider MD Phil Terry Other Provider [phone] MD SARI MENA Other Provider MD Jose Santos Other Provider MD Rhiannon Farris Other Provider TYE BARNETT MD Attending Unavailable Dr. Daron Benton Primary Care Provider Dr. Daron Benton Referring Provider [phone] Sachin Murillo Referring Provider Dr. [...] Referring Provider Dr. Daniel Edmonds Other Provider [phone] Dr. Isaias Scherer Other Provider Dr. Jorge [...] Dr. Trina Tyler MD Referring Provider Shirley OFX, Dr. Neha Lewis Other Provider Case FOX, [...] Provider Kati FOX, Dr. Strauss Other [facility], Dr. Kowalski Attending Provider Kati FOX, Dr. Strauss Attending Provider [facility] , Dr. Kowalski Other Provider Baljit [...] Provider Kati FOX, Dr. Strauss Other Provider [facility], Dr. Kowalski Attending Provider Shirley FOX, Dr. Neha Lewis Other Provider Kati FOX, Dr. Strauss Attending Provider Shirley FOX, Dr. Neha Lewis Attending Provider Husam FOX, Dr. Kirby Attending Provider Gm HERNANDEZ, Dr. Kowalski Other Provider Baljit FXO, Dr. Mejia Attending Provider Esperanza FOX, Dr. [...] Dr. Yasmani Haynes DO Attending Provider Kirk LOCKSTITCH SLEEVE MAKER-CIona Attending Provider Esperanza FOX, Dr. Neri Primary Care Provider Esperanza FOX, Dr. Neri Referring Provider Esperanza FOX, Dr. Neri Other Provider Elijah FOX, Dr. Tye Santos Attending Provider Elijah FOX, Dr. Tye Santos Referring Provider Robert LOCKSTITCH SLEEVE MAKER-C, Lizz Attending Provider Unavail able Robert LOCKSTITCH SLEEVE MAKER-C, Lizz Referring Provider Unavail jason Mckeon MD, Dr. Owens Admit Provider Unavailable Gm HERNANDEZ, Dr. Kowalski Attending Provider [phone] Gm HERNANDEZ, Dr. Kowalski Other Provider Yoselin FOX, Lucas Attending Provider Unavaildanielle Benton MD, Dr. Neri Primary Care Provider Esperanza FOX, Dr. Neri Referring Provider Dr. Roman Mckeon MD Referring Provider Unavaila singh Worrell DO, Dr. Kowalski Referring Provider Yoselin FOX, Dr. Zavala Attending Provider Larissa LOCKSTITCH SLEEVE MAKER-C, Karen Attending Provider Larissa LOCKSTITCH SLEEVE MAKER-C, Karen Attending Provider Shannan HERNANDEZ, Dr. Lake Emergency Provider Esperanza FOX, Dr. Neri Primary Care Provider Shannan HERNANDEZ, Dr. Lake Attending Provider ESPERANZA, DARON Primary [...] Gonzalez DO, Dr. Brown Attending Physician Kirk LOCKSTITCH SLEEVE MAKER-CIona Attending Physician Esperanza FOX, Dr. Neri Nurse [...] Physician Shannan HERNANDEZ, Dr. Lake Attending Physician [phone] Shannan HERNANDEZ, Dr. Lake Emergency Department Physician [...] Worrell Referring Unavailable Roman Mckeon Consulting Unavailable Roman Mckeon Admitting Unavailable Benton, Daron Primary Care Unavailable Roman Mckeon Attending Unavailable Dex Worrell Attending Unavailable Dex Worrell Consulting Unavailable Sommer Resendiz Admitting Unavailable MarkBenjy olson Referring Unavailable Belal, Farouk Consulting Unavailable Sukhi Parikhk Attending Unavailable Benton, Daron Primary Care Unavailable Sommer Resendiz Consulting Unavailable Shirley, Neha Debbie Consulting Unavailable Shirley, Neha Debbie Attending Unavailable Bhavik Smliey Attending Unavailable Dex Worrell Consulting Unavailable Dex Worrell Attending Unavailable Roman Mckeon Referring Unavailable Neha Watson Attending Unavailable Sommer Rseendiz Attending Unavailable Betsey Davenport Attending Unavail able [...] Care Unavailable Lucas Wyatt Attending Unavailable Larissa LOCKSTITCH SLEEVE MAKER, Karen Attending Unavailable Benton, Daron Primary Care Unavailable Benton, Daron Primary Care Unavailable Larissa LOCKSTITCH SLEEVE MAKER, Karen Attending Unavailable Betsey Davenport Attending Unavail [...] adverse reactions to drug (disorder) 04-28-20 04 [facility] (3 sources) clopidogrel; Translations: [CLOPIDOGREL BISULFATE] Drug Allergy 12-18-19 12 Other: See Comments [facility] (20 sources) codeine; Translations: [CODEINE] Drug Allergy 04-28-20 04 Nausea [facility] (3 sources) fenofibrate; Translations: [FENOFIBRATE MICRONIZED] Drug Allergy 04-27-20 11 Intolerance [facility] (20 sources) fentaNYL; Translations: [FENTANYL] Drug Allergy 02-19-20 12 Other: See Comments [facility] (3 sources) Hmg-Coa Reductase Inhibitors (Statins); Translations: [KBRXRKM-WRJ-KCD REDUCTASE INHIBITORS] Propensity to adverse reactions to drug (disorder) 04-27-20 11 Intolerance [facility] (20 sources) morphine; Translations: [MORPHINE] Drug Allergy 04-28-20 04 Nausea, Vomiting [facility] (20 sources) predniSONE; Translations: [PREDNISONE] Drug Allergy 12-15-19 09 [facility] (20 sources) salicylic acid; Translations: [SALICYLATES] Drug Allergy 12-04-19 09 [facility] (20 sources) Amitriptyline Drug Allergy 03-12-20 19 Rash [facility] (20 sources) Aspirin; Translations: [aspirin] Drug Allergy 02-15-20 22 Ulcer (morphologic abnormality) [facility] (20 sources) Colestipol; Translations: [colestipol] Drug Allergy 02-15-20 22 unknown [facility] (20 sources) Ethylenediamine derivative antihistamine Propensity to adverse reactions 02-15-20 22 Nausea/Vom/[place] [facility] (20 sources) pregabalin Drug Allergy 02-15-20 22 Hives [facility] (20 sources) Temazepam Drug Allergy 02-15-20 22 Nausea/Vom/[place] [facility] (20 sources) Antihistamines - Alkylamine; Translations: [Antihistamines - Alkylamine] Propensity to adverse reactions 02-15-20 22 Nausea/Vom/[place] [facility] (20 sources) Antihistamines - Ethanolamine; Translations: [Antihistamines - Ethanolamine] Propensity to adverse reactions 02-15-20 22 Nausea/Vom/[place] [facility] (20 sources) Antihistamines - Piperazine; Translations: [Antihistamines - Piperazine] Propensity to adverse reactions 02-15-20 22 Nausea/Vom/[place] [facility] (20 sources) Antihistamines - Piperidine; Translations: [Antihistamines - Piperidine] Propensity to adverse reactions 02-15-20 22 Nausea/Vom/[place] [facility] (20 sources) Qfpruxe-Ybw-Wvj Reductase Inhibitor; Translations: [Okgsbfm-Iqg-Njs Reductase Inhibitor] Propensity to adverse reactions 02-15-20 22 Nausea [facility] (8 sources) STEROIDS BY MOUTH Propensity to adverse reactions 02-15-20 22 Upset Stomach [facility] (1 source) HMG-CoA reductase inhibitor; Translations: [statins] Drug allergy [facility] (20 sources) Glucocorticoid Receptor Agonists Propensity to adverse reactions 03-16-20 23 Upset Stomach [facility] (18 sources) clopidogrel Drug Allergy 12-18-19 12 [facility] (18 sources) Fenofibrate Drug Allergy 04-27-20 11 [facility] (18 sources) Antihistamines, Diphenhydramine-Ty pe Drug Intolerance 09-17-20 [facility] (1 source) Amitriptyline Drug Allergy 08-05-20 [facility] (1 source) Aspirin Drug Allergy 08-05-20 [facility] (1 source) Colestipol Drug Allergy 08-05-20 [facility] (1 source) Corticosteroids Drug allergy (disorder) 08-05-20 [facility] (1 source) pregabalin Drug Allergy 08-05-20 [facility] (1 source) Temazepam Drug Allergy 08-05-20 [facility] (1 source) Antihistamines - Ethylenediamine Drug allergy (disorder) 08-05-20 [facility] Repository Medications Current Medications Medication Drug Class(es) Dates Sig (Normalized) Sig (Original) acetaminophen 325 mg / HYDROcodone bitartrate 5 mg oral tablet (1 source) Opioid Agonist take 1 tablet by mouth every six hours as needed HYDROcodone-acetam inophen (NORCO) 5-325 mg per tablet Take 1 tablet by mouth every 6 hours as needed. 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 [...] sources) Long-term current use of anticoagulant; 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] 01-18-2024 Episodic Other [...] gap [Moles/Vol] 13 mmol/L 04-02 [facility] BUN/creatinine ratioOrdered By: Yasmani Haynes on 08-06-2025 Urea nitrogen/Creatinine [Mass ratio] 29.9 mg/mg High 09-07 [facility] Basic Metabolic Profile (BMP )on 08-06-2025 BUN/CRE 29.9 RATIO High 09-07 [facility] Comment on above: Performed By: #### L 500.2500 ####[facility] [address] [place], [place], [id number] Calcium [Mass/Vol] 9.1 mg/dL Normal 7.6-11.0 [facility] Comment on above: Performed By: #### L 500.2500 ####[facility] [address] [place], [place], [id number] Chloride [Moles/Vol] 100 mmol/L Normal 98-108 [facility] Comment on above: Performed By: #### L 500.2500 ####[facility] [address] [place], [address] CO2 [Moles/Vol] 25.3 mmol/L Normal 21.0-32.0 [facility] Comment on above: Performed By: #### L 500.2500 ####[facility] [address] [place], [address] Creatinine [Mass/Vol] 1.85 mg/dL High 0.70-1.20 [facility] Comment on above: Performed By: #### L 500.2500 ####[facility] [address] [place], [address] ECRCL 22.99 ml/min Low 50-250 [facility] Comment on above: Performed By: #### L 500.2500 ####[facility] [address] [place], [address] GAP 13 Normal 5-15 [facility] Comment on above: Performed By: #### L 500.2500 ####[facility] [address] [place], [address] GFR/1.73 sq M.predicted among non-blacks MDRD (S/P/Bld) [Vol rate/Area] 29 mL/min/{1.73_m2} Low >60 [facility] Comment on above: Result Comment: mL/m in/1.73m2 CKD-EPI Creatinine Equation (2020) Performed By: #### L 500.2500 ####[facility] [address] [place], [address] Glucose [Mass/Vol] 103 mg/dL High 70-99 [facility] Comment on above: Performed By: #### L 500.2500 ####[facility] [address] [place], [address] Potassium [Moles/Vol] 4.0 mmol/L Normal 3.3-5.1 [facility] Comment on above: Performed By: #### L 500.2500 ####[facility] [address] [place], [address] Sodium [Moles/Vol] 138 mmol/L Normal 133-145 [facility] Comment on above: Performed By: #### L 500.2500 ####[facility] [address] [place] [place], [address] Urea nitrogen [Mass/Vol] 55 mg/dL High 4-19 [facility] Comment on above: Performed By: #### L 500.2500 ####[facility] [address] [place], [address] Carbon dioxide, total [Moles /volume] in Central venous bloodOrdered By: Yasmani Haynes on 08-06-2025 CO2 [Moles/Vol] 25.3 mmol/L 21.0-32.0 [facility] Chloride assayOrdered By: Kari Haynes on 08-06-2025 Chloride [Moles/Vol] 100 mmol/L 98-108 [facility] Glomerular filtration rate ( GFR) estimation/1.73 sq m using serum, plasma, or whole bOrdered By: Yasmani Haynes on 08-06-2025 GFR/1.73 sq M.predicted among non-blacks MDRD (S/P/Bld) [Vol rate/Area] 29 mL/min/{1.73_m2} Low >60 [facility] Potassium measurement (mass/ volume)Ordered By: Yasmani Haynes on 08-06-2025 Potassium (Unsp spec) [Mass/Vol] 4.0 mmol/L 3.3-5.1 [facility] Serum creatinine measurement (mass/volume)Ordered By: Yasmani Haynes on 08-06-2025 Creatinine [Mass/Vol] 1.85 mg/dL High 0.70-1.20 [facility] Serum glucose measurement (m ass/volume)Ordered By: Yasmani Haynes on 08-06-2025 Glucose [Mass/Vol] 103 mg/dL High 70-99 [facility] Serum or plasma calcium stefania urement (mass/volume)Ordered By: Yasmani Haynes on 08-06-2025 Calcium [Mass/Vol] 9.1 mg/dL 7.6-11.0 [facility] Serum or plasma urea nitroge n measurement (mass/volume)Ordered By: Yasmani Haynes on 08-06-2025 Urea nitrogen [Mass/Vol] 55 mg/dL High 4-19 [facility] Sodium levelOrdered By: Joce Haynes on 08-06-2025 Sodium [Moles/Vol] 138 mmol/L 133-145 [facility] Troponin T HS 4 HRon 025 Trop T High Sen 32 ng/L High <=14 [facility] Comment on above: Performed By: #### L 499.0043 ####[facility] [address] [place], [place], [id number] Troponin T.cardiac [Mass/vol ume] in Serum or Plasma by High sensitivity methodOrdered By: Jeffy Willoughby on 08-06-2025 Troponin T.cardiac High sensitivity method [Mass/Vol] 32 ng/L High <14 [facility] 12 Lead EKGon 08-05-2025 12 Lead EKG Normal [facility] Absolute lymphocyte countOrd ered By: Jeffy Willoughby on 08-05-2025 Lymphocytes Auto (Unsp spec) [#/Vol] 1.15 10*3/uL 0.83-4.51 [facility] Automated lymphocyte count a s percentage of total leukocytesOrdered By: Jeffy Willoughby on 08-05-2025 Lymphocytes/100 WBC Auto (Unsp spec) 18.2 % Low 19-41 [facility] Basic Metabolic Profile (BMP )on 08-05-2025 BUN/CRE 29.2 RATIO High 10-20 [facility] Comment on above: Performed By: #### L 500.2500, L100.0100 ####[facility] [address] [place], [place], [id number] Calcium [Mass/Vol] 9.5 mg/dL Normal 7.6-11.0 [facility] Comment on above: Performed By: #### L 500.2500, L100.0100 ####[facility] [address] [place], [address] Chloride [Moles/Vol] 96 mmol/L Low 98-108 [facility] Comment on above: Performed By: #### L 500.2500, L100.0100 ####[facility] [address] [place], [address] CO2 [Moles/Vol] 31.1 mmol/L Normal 21.0-32.0 [facility] Comment on above: Performed By: #### L 500.2500, L100.0100 ####[facility] [address] [place], [address] Creatinine [Mass/Vol] 2.10 mg/dL High 0.70-1.20 [facility] Comment on above: Performed By: #### L 500.2500, L100.0100 ####[facility] [address] [place], [address] ECRCL 20.25 ml/min Low 50-250 [facility] Comment on above: Performed By: #### L 500.2500, L100.0100 ####[facility] [address] [place], [address] GAP 12 Normal 5-15 [facility] Comment on above: Performed By: #### L 500.2500, L100.0100 ####[facility] [address] [place], [address] GFR/1.73 sq M.predicted among non-blacks MDRD (S/P/Bld) [Vol rate/Area] 25 mL/min/{1.73_m2} Low >60 [facility] Comment on above: Result Comment: mL/m in/1.73m2 CKD-EPI Creatinine Equation (2020) Performed By: #### L 500.2500, L100.0100 ####[facility] [address] [place], [address] Glucose [Mass/Vol] 119 mg/dL High 70-99 [facility] Comment on above: Performed By: #### L 500.2500, L100.0100 ####[facility] [address] [place], [address] Potassium [Moles/Vol] 4.9 mmol/L Normal 3.3-5.1 [facility] Comment on above: Performed By: #### L 500.2500, L100.0100 ####[facility] [address] [place], [address] Sodium [Moles/Vol] 139 mmol/L Normal 133-145 [facility] Comment on above: Performed By: #### L 500.2500, L100.0100 ####[facility] [address] [place], [address] Urea nitrogen [Mass/Vol] 61 mg/dL High 4-19 [facility] Comment on above: Performed By: #### L 500.2500, L100.0100 ####[facility] [address] [place], [address] Basophil percentageOrdered B y: Jeffy Willoughby on 08-05-2025 Basophils/100 WBC (Bld) 0.9 % 0-1 [facility] CBC W/Diff, Automatedon 07-20 Absolute Lymph 1.15 X10 3/uL Normal 0.83-4.51 [facility] Comment on above: Performed By: #### L 500.2500, L100.0100 ####[facility] [address] [place], [address] Absolute Neut 4.0 X10 3/uL Normal 2.0-7.7 [facility] Comment on above: Performed By: #### L 500.2500, L100.0100 ####[facility] [address] [place], [address] Basophils/100 WBC (Bld) 0.9 % Normal 0-1 [facility] Comment on above: Performed By: #### L 500.2500, L100.0100 ####[facility] [address] [place], [address] Eosinophils/100 WBC (Bld) 7.3 % High 0-5 [facility] Comment on above: Performed By: #### L 500.2500, L100.0100 ####[facility] [address] [place], [address] Erythrocyte distribution width (RBC) [Ratio] 18.3 % High 11.6-14.6 [facility] Comment on above: Performed By: #### L 500.2500, L100.0100 ####[facility] [address] [place], [address] Hematocrit (Bld) [Volume fraction] 33.0 % Low 37-47 [facility] Comment on above: Performed By: #### L 500.2500, L100.0100 ####[facility] [address] [place], [address] Hemoglobin (Bld) [Mass/Vol] 10.4 g/dL Low 12.0-15.0 [facility] Comment on above: Performed By: #### L 500.2500, L100.0100 ####[facility] [address] [place], [address] IG% 0.300 Normal 0.0-0.9 [facility] Comment on above: Result Comment: IG% - Immature Granulocytes (promyelocytes, myelocytes andmetamyelocytes) > 1% indicates that a LEFT SHIFT is Present. Performed By: #### L 500.2500, L100.0100 ####[facility] [address] [place], [address] Lymphocytes/100 WBC (Bld) 18.2 % Low 19-41 [facility] Comment on above: Performed By: #### L 500.2500, L100.0100 ####[facility] [address] [place], [address] MCH (RBC) [Entitic mass] 27.7 pg Normal 27.0-32.0 [facility] Comment on above: Performed By: #### L 500.2500, L100.0100 ####[facility] [address] [place], [address] MCHC (RBC) [Mass/Vol] 31.5 g/dL Low 32-36 [facility] Comment on above: Performed By: #### L 500.2500, L100.0100 ####[facility] [address] [place], [address] MCV (RBC) [Entitic vol] 87.8 fL Normal 81-99 [facility] Comment on above: Performed By: #### L 500.2500, L100.0100 ####[facility] [address] [place], [address] Monocytes/100 WBC (Bld) 9.5 % Normal 0-10 [facility] Comment on above: Performed By: #### L 500.2500, L100.0100 ####[facility] [address] [place], [address] Neutrophils/100 WBC (Bld) 63.8 % Normal 47-70 [facility] Comment on above: Performed By: #### L 500.2500, L100.0100 ####[facility] [address] [place], [address] Nucleated RBC (Bld) [#/Vol] 0 10*3/uL Normal 0-5 [facility] Comment on above: Performed By: #### L 500.2500, L100.0100 ####[facility] [address] [place], [address] Platelet mean volume (Bld) [Entitic vol] 10.2 fL Normal 6.2-12.0 [facility] Comment on above: Performed By: #### L 500.2500, L100.0100 ####[facility] [address] [place], [address] Platelets (Bld) [#/Vol] 108 10*3/uL Low 150-450 [facility] Comment on above: Performed By: #### L 500.2500, L100.0100 ####[facility] [address] [place], [address] RBC (Bld) [#/Vol] 3.76 10*6/uL Low 4.2-5.4 [facility] Comment on above: Performed By: #### L 500.2500, L100.0100 ####[facility] [address] [place], [address] RDW SD 58.3 fl High 35.1-43.9 [facility] Comment on above: Performed By: #### L 500.2500, L100.0100 ####[facility] [address] [place], [address] WBC (Bld) [#/Vol] 6.3 10*3/uL Normal 4.4-11.0 [facility] Comment on above: Performed By: #### L 500.2500, L100.0100 ####[facility] [facility] [address] [place], [address] Cardiology Visit Reporton Cardiology Visit Report Normal [facility] Emergency Department Summary on 08-05-2025 Emergency Department Summary Normal [facility] Eosinophil percentageOrdered By: Jeffy Willoughby on 08-05-2025 Eosinophils/100 WBC (Bld) 7.3 % High 0-5 [facility] Erythrocyte distribution wid th ratioOrdered By: Jeffy Willoughby on 08-05-2025 Erythrocyte distribution width (RBC) [Ratio] 18.3 % High 11.6-14.6 [facility] Erythrocyte distribution wid th standard deviationOrdered By: Jeffyaura Blocko on 08-05-2025 Erythrocyte distribution width (RBC) [Ratio] 58.3 fl High 35.1-43.9 [facility] Hematocrit Auto (Bld) [Volum e fraction]Ordered By: Jeffyaura Blocko on 08-05-2025 Hematocrit (Bld) [Volume fraction] 33.0 % Low 37-47 [facility] Hemoglobin measurementOrdere d By: Jeffyaura Blocko on 08-05-2025 Hemoglobin (Bld) [Mass/Vol] 10.4 g/dL Low 12.0-15.0 [facility] Immature granulocytes/100 WB C Auto (Bld)Ordered By: Jeffyaura Willoughby on 08-05-2025 Immature granulocytes/100 WBC (Bld) 0.300 % 0.0-0.9 [facility] L501.4021on 08-05-2025 Trop T High Sen 34 ng/L High <=14 [facility] Comment on above: Performed By: #### L 501.4021 ####[facility] [address] [place], [place], [id number] MCV (mean corpuscular volume ) determinationOrdered By: Jeffyaura Willoughby on 08-05-2025 MCV (RBC) [Entitic vol] 87.8 fL 81-99 [facility] Mean corpuscular hemoglobin (MCH) determinationOrdered By: Jeffyaura Willoughby on 08-05-2025 MCH (RBC) [Entitic mass] 27.7 pg 27.0-32.0 [facility] Monocyte percentageOrdered B y: Jeffyaura Willoughby on 08-05-2025 Monocytes/100 WBC (Bld) 9.5 % 0-10 [facility] Neutrophil percentageOrdered By: Jeffyaura Willoughby on 08-05-2025 Neutrophils/100 WBC (Bld) 63.8 % 47-70 [facility] Platelet countOrdered By: [facility] Willoughby on 08-05-2025 Platelets (Bld) [#/Vol] 108 10*3/uL Low 150-450 [facility] RBC Auto (Bld) [#/Vol]Ordere d By: Jeffy Willoughby on 08-05-2025 RBC (Bld) [#/Vol] 3.76 10*6/uL Low 4.2-5.4 [facility] Troponin T HS 2 HRon 025 Trop T High Sen 33 ng/L High <=14 [facility] Comment on above: Performed By: #### L 499.0042 ####[facility] [address] [place], [place], [phone] Troponin T.cardiac [Mass/vol ume] in Serum or Plasma by High sensitivity methodOrdered By: Jeffy Willoughby on 08-05-2025 Troponin T.cardiac High sensitivity method [Mass/Vol] 33 ng/L High <14 [facility] Troponin T.cardiac High sensitivity method [Mass/Vol] 34 ng/L High <14 [facility] White blood cell (WBC) count Ordered By: Jeffy Willoughby on 08-05-2025 WBC (Bld) [#/Vol] 6.3 10*3/uL 4.4-11.0 [facility] Troponin T HS 2 HRon 025 Trop T High Sen 27 ng/L High <=14 [facility] Comment on above: Performed By: #### L 499.0042 ####[facility] [address] [place], [place], [id number] Troponin T HS 4 HRon 025 Trop T High Sen Normal <=14 [facility] Comment on above: Result Comment: Canc elled via OM: Order cancelled - Patient discharged Performed By: #### L 499.0043 ####[facility] [address] [place], [place], [id number] 12 Lead EKGon 07-31-2025 12 Lead EKG Normal [facility] Absolute lymphocyte countOrd ered By: Jeffy Willoughby on 07-31-2025 Lymphocytes Auto (Unsp spec) [#/Vol] 0.97 10*3/uL 0.83-4.51 [facility] Anion gap in Serum or Plasma Ordered By: Jeffyaura Willoughby on 07-31-2025 Anion gap [Moles/Vol] 14 mmol/L 5-15 [facility] Automated lymphocyte count a s percentage of total leukocytesOrdered By: Jeffy Willoughby on 07-31-2025 Lymphocytes/100 WBC Auto (Unsp spec) 13.9 % Low 19-41 [facility] BUN/creatinine ratioOrdered By: Jeffy Willoughby on 07-31-2025 Urea nitrogen/Creatinine [Mass ratio] 25.8 mg/mg High 10-20 [facility] Basic Metabolic Profile (BMP )on 07-31-2025 BUN/CRE 25.8 RATIO High 10- [facility] Comment on above: Performed By: #### L 500.2500, L100.0100, L501.4021 ####[facility] [address] [place], [address] Calcium [Mass/Vol] 9.5 mg/dL Normal 7.6-11.0 [facility] Comment on above: Performed By: #### L 500.2500, L100.0100, L501.4021 ####[facility] [address] [place], [address] Chloride [Moles/Vol] 95 mmol/L Low 98-108 [facility] Comment on above: Performed By: #### L 500.2500, L100.0100, L501.4021 ####[facility] [address] [place], [address] CO2 [Moles/Vol] 28.3 mmol/L Normal 21.0-32.0 [facility] Comment on above: Performed By: #### L 500.2500, L100.0100, L501.4021 ####[facility] [address] [place], [address] Creatinine [Mass/Vol] 1.25 mg/dL High 0.70-1.20 [facility] Comment on above: Performed By: #### L 500.2500, L100.0100, L501.4021 ####[facility] [address] [place], [address] ECRCL 32.34 ml/min Low 50-250 [facility] Comment on above: Performed By: #### L 500.2500, L100.0100, L501.4021 ####[facility] [address] [place], [address] GAP 14 Normal 5-15 [facility] Comment on above: Performed By: #### L 500.2500, L100.0100, L501.4021 ####[facility] [address] [place], [address] GFR/1.73 sq M.predicted among non-blacks MDRD (S/P/Bld) [Vol rate/Area] 46 mL/min/{1.73_m2} Low >60 [facility] Comment on above: Result Comment: mL/m in/1.73m2 CKD-EPI Creatinine Equation (2020) Performed By: #### L 500.2500, L100.0100, L501.4021 ####[facility] [address] [place], [address] Glucose [Mass/Vol] 132 mg/dL High 70-99 [facility] Comment on above: Performed By: #### L 500.2500, L100.0100, L501.4021 ####[facility] [address] [place], [address] Potassium [Moles/Vol] 3.7 mmol/L Normal 3.3-5.1 [facility] Comment on above: Performed By: #### L 500.2500, L100.0100, L501.4021 ####[facility] [address] [place], [address] Sodium [Moles/Vol] 137 mmol/L Normal 133-145 [facility] Comment on above: Performed By: #### L 500.2500, L100.0100, L501.4021 ####[facility] [address] [place], [address] Urea nitrogen [Mass/Vol] 32 mg/dL High 4-19 [facility] Comment on above: Performed By: #### L 500.2500, L100.0100, L501.4021 ####[facility] [address] [place], [address] Basophil percentageOrdered B y: Jeffy Willoughby on 07-31-2025 Basophils/100 WBC (Bld) 0.9 % 0-1 [facility] CBC W/Diff, Automatedon 07-20-2024 Absolute Lymph 0.97 X10 3/uL Normal 0.83-4.51 [facility] Comment on above: Performed By: #### L 500.2500, L100.0100, L501.4021 ####[facility] [address] [place], [address] Absolute Neut 4.9 X10 3/uL Normal 2.0-7.7 [facility] Comment on above: Performed By: #### L 500.2500, L100.0100, L501.4021 ####[facility] [address] [place], [address] Basophils/100 WBC (Bld) 0.9 % Normal 0-1 [facility] Comment on above: Performed By: #### L 500.2500, L100.0100, L501.4021 ####[facility] [address] [place], [address] Eosinophils/100 WBC (Bld) 6.6 % High 0-5 [facility] Comment on above: Performed By: #### L 500.2500, L100.0100, L501.4021 ####[facility] [address] [place], [address] Erythrocyte distribution width (RBC) [Ratio] 18.2 % High 11.6-14.6 [facility] Comment on above: Performed By: #### L 500.2500, L100.0100, L501.4021 ####[facility] [address] [place], [address] Hematocrit (Bld) [Volume fraction] 36.4 % Low 37-47 [facility] Comment on above: Performed By: #### L 500.2500, L100.0100, L501.4021 ####[facility] [address] [place], [address] Hemoglobin (Bld) [Mass/Vol] 11.7 g/dL Low 12.0-15.0 [facility] Comment on above: Performed By: #### L 500.2500, L100.0100, L501.4021 ####[facility] [address] [place], [address] IG% 0.300 Normal 0.0-0.9 [facility] Comment on above: Result Comment: IG% - Immature Granulocytes (promyelocytes, myelocytes andmetamyelocytes) > 1% indicates that a LEFT SHIFT is Present. Performed By: #### L 500.2500, L100.0100, L501.4021 ####[facility] [address] [place], [address] Lymphocytes/100 WBC (Bld) 13.9 % Low 19-41 [facility] Comment on above: Performed By: #### L 500.2500, L100.0100, L501.4021 ####[facility] [address] [place], [address] MCH (RBC) [Entitic mass] 27.6 pg Normal 27.0-32.0 [facility] Comment on above: Performed By: #### L 500.2500, L100.0100, L501.4021 ####[facility] [address] [place], [address] MCHC (RBC) [Mass/Vol] 32.1 g/dL Normal 32-36 [facility] Comment on above: Performed By: #### L 500.2500, L100.0100, L501.4021 ####[facility] [address] [place], [address] MCV (RBC) [Entitic vol] 85.8 fL Normal 81-99 [facility] Comment on above: Performed By: #### L 500.2500, L100.0100, L501.4021 ####[facility] [address] [place], [address] Monocytes/100 WBC (Bld) 8.6 % Normal 0-10 [facility] Comment on above: Performed By: #### L 500.2500, L100.0100, L501.4021 ####[facility] [address] [place], [address] Neutrophils/100 WBC (Bld) 69.7 % Normal 47-70 [facility] Comment on above: Performed By: #### L 500.2500, L100.0100, L501.4021 ####[facility] [address] [place], [address] Nucleated RBC (Bld) [#/Vol] 0 10*3/uL Normal 0-5 [facility] Comment on above: Performed By: #### L 500.2500, L100.0100, L501.4021 ####[facility] [address] [place], [address] Platelet mean volume (Bld) [Entitic vol] 10.5 fL Normal 6.2-12.0 [facility] Comment on above: Performed By: #### L 500.2500, L100.0100, L501.4021 ####[facility] [address] [place], [address] Platelets (Bld) [#/Vol] 131 10*3/uL Low 150-450 [facility] Comment on above: Performed By: #### L 500.2500, L100.0100, L501.4021 ####[facility] [address] [place], [address] RBC (Bld) [#/Vol] 4.24 10*6/uL Normal 4.2-5.4 [facility] Comment on above: Performed By: #### L 500.2500, L100.0100, L501.4021 ####[facility] [address] [place], [address] RDW SD 57.0 fl High 35.1-43.9 [facility] Comment on above: Performed By: #### L 500.2500, L100.0100, L501.4021 ####[facility] [address] [place], [address] WBC (Bld) [#/Vol] 7.0 10*3/uL Normal 4.4-11.0 [facility] Comment on above: Performed By: #### L 500.2500, L100.0100, L501.4021 ####[facility] [address] [place], [address] Carbon dioxide, total [Moles /volume] in Central venous bloodOrdered By: Jeffy Willoughby on 07-31-2025 CO2 [Moles/Vol] 28.3 mmol/L 21.0-32.0 [facility] Chest 1 View (Portable)on Chest 1 View (Portable) Normal [facility] Chloride assayOrdered By: Barrett Willoughby on 07-31-2025 Chloride [Moles/Vol] 95 mmol/L Low 98-108 [facility] Emergency Department Summary on 07-31-2025 Emergency Department Summary Normal [facility] Eosinophil percentageOrdered By: Jeffy Willoughby on 07-31-2025 Eosinophils/100 WBC (Bld) 6.6 % High 0-5 [facility] Erythrocyte distribution wid th ratioOrdered By: [facility] Erythrocyte distribution width (RBC) [Ratio] 18.2 % High 11.6-14.6 [facility] Erythrocyte distribution wid th standard deviationOrdered By: Jeffy Willoughby on 07-31-2025 Erythrocyte distribution width (RBC) [Ratio] 57.0 fl High 35.1-43.9 [facility] Glomerular filtration rate ( GFR) estimation/1.73 sq m using serum, plasma, or whole bOrdered By: Jeffyaura Willoughby on 07-31-2025 GFR/1.73 sq M.predicted among non-blacks MDRD (S/P/Bld) [Vol rate/Area] 46 mL/min/{1.73_m2} Low >60 [facility] Hematocrit Auto (Bld) [Volum e fraction]Ordered By: [facility] on 07-31-2025 Hematocrit (Bld) [Volume fraction] 36.4 % Low 37-47 [facility] Hemoglobin measurementOrdere d By: [facility] on 07-31-2025 Hemoglobin (Bld) [Mass/Vol] 11.7 g/dL Low 12.0-15.0 [facility] Immature granulocytes/100 WB C Auto (Bld)Ordered By: [facility] on 07-31-2025 Immature granulocytes/100 WBC (Bld) 0.300 % 0.0-0.9 [facility] L501.4021on 07-31-2025 Trop T High Sen 29 ng/L High <=14 [facility] Comment on above: Performed By: #### L 500.2500, L100.0100, L501.4021 ####[facility] [address] [place], [address] MCV (mean corpuscular volume ) determinationOrdered By: Jeffy Willoughby on 07-31-2025 MCV (RBC) [Entitic vol] 85.8 fL 81-99 [facility] Mean corpuscular hemoglobin (MCH) determinationOrdered By: [facility] on 07-31-2025 MCH (RBC) [Entitic mass] 27.6 pg 27.0-32.0 [facility] Monocyte percentageOrdered B y: Jeffy Blocko on 07-31-2025 Monocytes/100 WBC (Bld) 8.6 % 0-10 [facility] Neutrophil percentageOrdered By: Jeffy Blocko on 07-31-2025 Neutrophils/100 WBC (Bld) 69.7 % 47-70 [facility] Platelet countOrdered By: Barrett Blocko on 07-31-2025 Platelets (Bld) [#/Vol] 131 10*3/uL Low 150-450 [facility] Potassium measurement (mass/ volume)Ordered By: Jeffy Willoughby on 07-31-2025 Potassium (Unsp spec) [Mass/Vol] 3.7 mmol/L 3.3-5.1 [facility] RBC Auto (Bld) [#/Vol]Ordere d By: Jeffy Blocko on 07-31-2025 RBC (Bld) [#/Vol] 4.24 10*6/uL 4.2-5.4 [facility] Serum creatinine measurement (mass/volume)Ordered By: Jeffy Willoughby on 07-31-2025 Creatinine [Mass/Vol] 1.25 mg/dL High 0.70-1.20 [facility] Serum glucose measurement (m ass/volume)Ordered By: Jeffy Willoughby on 07-31-2025 Glucose [Mass/Vol] 132 mg/dL High 70-99 [facility] Serum or plasma calcium stefania urement (mass/volume)Ordered By: Jeffy Willoughby on 07-31-2025 Calcium [Mass/Vol] 9.5 mg/dL 7.6-11.0 [facility] Serum or plasma urea nitroge n measurement (mass/volume)Ordered By: Jeffy Willoughby on 07-31-2025 Urea nitrogen [Mass/Vol] 32 mg/dL High 4-19 [facility] Sodium levelOrdered By: Jeffy Willoughby on 07-31-2025 Sodium [Moles/Vol] 137 mmol/L 133-145 [facility] Troponin T.cardiac [Mass/vol ume] in Serum or Plasma by High sensitivity methodOrdered By: Jeffy Willoughby on 07-31-2025 Troponin T.cardiac High sensitivity method [Mass/Vol] 27 ng/L High <14 [facility] Troponin T.cardiac High sensitivity method [Mass/Vol] 29 ng/L High <14 [facility] White blood cell (WBC) count Ordered By: Jeffy Willoughby on 07-31-2025 WBC (Bld) [#/Vol] 7.0 10*3/uL 4.4-11.0 [facility] Basic Metabolic Profile (BMP )on 07-23-2025 BUN/CRE 25.8 RATIO High 10-20 [facility] Comment on above: Performed By: #### L 100.0100, L500.2500 ####[facility] [address] [place], [address] Calcium [Mass/Vol] 9.4 mg/dL Normal 7.6-11.0 [facility] Comment on above: Performed By: #### L 100.0100, L500.2500 ####[facility] [address] [place], [address] Chloride [Moles/Vol] 94 mmol/L Low 98-108 [facility] Comment on above: Performed By: #### L 100.0100, L500.2500 ####[facility] [address] [place], [address] CO2 [Moles/Vol] 34.0 mmol/L High 21.0-32.0 [facility] Comment on above: Performed By: #### L 100.0100, L500.2500 ####[facility] [address] [place], [address] Creatinine [Mass/Vol] 1.14 mg/dL Normal 0.70-1.20 [facility] Comment on above: Performed By: #### L 100.0100, L500.2500 ####[facility] [address] [place], [address] ECRCL 35.46 ml/min Low 50-250 [facility] Comment on above: Performed By: #### L 100.0100, L500.2500 ####[facility] [address] [place], [address] GAP 10 Normal 5-15 [facility] Comment on above: Performed By: #### L 100.0100, L500.2500 ####[facility] [address] [place], [address] GFR/1.73 sq M.predicted among non-blacks MDRD (S/P/Bld) [Vol rate/Area] 51 mL/min/{1.73_m2} Low >60 [facility] Comment on above: Result Comment: mL/m in/1.73m2 CKD-EPI Creatinine Equation (2020) Performed By: #### L 100.0100, L500.2500 ####[facility] [address] [place], [address] Glucose [Mass/Vol] 125 mg/dL High 70-99 [facility] Comment on above: Performed By: #### L 100.0100, L500.2500 ####[facility] [address] [place], [address] Potassium [Moles/Vol] 4.0 mmol/L Normal 3.3-5.1 [facility] Comment on above: Performed By: #### L 100.0100, L500.2500 ####[facility] [address] [place], [address] Sodium [Moles/Vol] 139 mmol/L Normal 133-145 [facility] Comment on above: Performed By: #### L 100.0100, L500.2500 ####[facility] [address] [place], [address] Urea nitrogen [Mass/Vol] 29 mg/dL High 4-19 [facility] Comment on above: Performed By: #### L 100.0100, L500.2500 ####[facility] [address] [place], [address] Office Visiton 07-23-2025 Follow-up visit [id number] Estephania Yo Mayda 1955 F Date Provider Department Center 07/23/2025 [id number] [facility] None Family History Family Status - Relation Status Age at Mother Notes: brain tumor Father Notes: [place] of arteries Level of Service:79249 [place] OFFICE/OUTPATIENT ESTABLISHED LOW MDM 20 MIN Reason for Visit and Comments: Follow-up [456442] Multiple Sclerosis [162] Results [95] Dizziness [360246] - Normal [facility] Progress Noteon 07-23-2025 Progress Note Visit type: Establis hed Patient Reason for Visit: Follow-up, Multiple Sclerosis, Results, and Dizziness (/) Assessment and Plan 1. Multiple sclerosis (HCC) - baclofen (Lioresal) 20 MG tablet; Take 1 tablet (20 mg) by mouth 3 times daily., Starting Estrella 07/23/2025, Normal Subjective HPI: REVIEW- 04/12 - ED at [place] for MS flare affective speech, swallowing, VOSS. [...] last night for SBP 200's. Was in assisted for 1 month over June for issues with BP and weakness after having 2 bleeding ulcers and 4 blood transfusions - had PT. She is feeling better since discharge; doing PT at the house. She had MRI brain done at [place] - I do not have the results [...] TSH VITAMIN B12: No results found for: TMBESOIY10 No results found for: PHENYTOIN, PHENOBARB, VALPROATE, CBMZ No components found for: TOPIRA @RESULTINGLABINFO@ No results found for: LEVETIRACETA, FERRITIN, CRP, DENNIS, ANCA No results found for: CHRISTIANO, IMMUNOGLOBUL, OLIGOBANDS No results found for: PVH20SX, HEPCAB No results found for: CRP, ANATITER, ANCA FERRITIN: No results found for: FERRITIN ---- ECG 12 lead SINUS BRADYCARDIA PROBABLE (more content not included)... Normal [facility] Absolute lymphocyte countOrd ered By: Ramírez Onofre on 07-22-2025 Lymphocytes Auto (Unsp spec) [#/Vol] 0.86 10*3/uL 0.83-4.51 [facility] Anion gap in Serum or Plasma Ordered By: Ramírez Onofre on 07-22-2025 Anion gap [Moles/Vol] 10 mmol/L 5-15 [facility] Automated lymphocyte count a s percentage of total leukocytesOrdered By: Ramírez Onofre on 07-22-2025 Lymphocytes/100 WBC Auto (Unsp spec) 12.6 % Low 19-41 [facility] BUN/creatinine ratioOrdered By: Ramírez Onofre on 07-22-2025 Urea nitrogen/Creatinine [Mass ratio] 25.8 mg/mg High 10-20 [facility] Basophil percentageOrdered B y: Ramírez Onofre on 07-22-2025 Basophils/100 WBC (Bld) 0.9 % 0-1 [facility] Brain/Head without Contrasto n 07-22-2025 Brain/Head without Contrast Normal [facility] CBC W/Diff, Automatedon Absolute Lymph 0.86 X10 3/uL Normal 0.83-4.51 [facility] Comment on above: Performed By: #### L 100.0100, L500.2500 ####[facility] [address] [place], [address] Absolute Neut 4.8 X10 3/uL Normal 2.0-7.7 [facility] Comment on above: Performed By: #### L 100.0100, L500.2500 ####[facility] [address] [place], [address] Basophils/100 WBC (Bld) 0.9 % Normal 0-1 [facility] Comment on above: Performed By: #### L 100.0100, L500.2500 ####[facility] [address] [place], [address] Eosinophils/100 WBC (Bld) 5.0 % Normal 0-5 [facility] Comment on above: Performed By: #### L 100.0100, L500.2500 ####[facility] [address] [place], [address] Erythrocyte distribution width (RBC) [Ratio] 18.6 % High 11.6-14.6 [facility] Comment on above: Performed By: #### L 100.0100, L500.2500 ####[facility] [address] [place], [address] Hematocrit (Bld) [Volume fraction] 36.7 % Low 37-47 [facility] Comment on above: Performed By: #### L 100.0100, L500.2500 ####[facility] [address] [place], [address] Hemoglobin (Bld) [Mass/Vol] 11.6 g/dL Low 12.0-15.0 [facility] Comment on above: Performed By: #### L 100.0100, L500.2500 ####[facility] [address] [place], [address] IG% 1.200 High 0.0-0.9 [facility] Comment on above: Result Comment: IG% - Immature Granulocytes (promyelocytes, myelocytes andmetamyelocytes) > 1% indicates that a LEFT SHIFT is Present. Performed By: #### L 100.0100, L500.2500 ####[facility] [address] [place], [address] Lymphocytes/100 WBC (Bld) 12.6 % Low 19-41 [facility] Comment on above: Performed By: #### L 100.0100, L500.2500 ####[facility] [address] [place], [address] MCH (RBC) [Entitic mass] 27.2 pg Normal 27.0-32.0 [facility] Comment on above: Performed By: #### L 100.0100, L500.2500 ####[facility] [address] [place], [address] MCHC (RBC) [Mass/Vol] 31.6 g/dL Low 32-36 [facility] Comment on above: Performed By: #### L 100.0100, L500.2500 ####[facility] [address] [place], [address] MCV (RBC) [Entitic vol] 85.9 fL Normal 81-99 [facility] Comment on above: Performed By: #### L 100.0100, L500.2500 ####[facility] [address] [place], [address] Monocytes/100 WBC (Bld) 9.6 % Normal 0-10 [facility] Comment on above: Performed By: #### L 100.0100, L500.2500 ####[facility] [address] [place], [address] Neutrophils/100 WBC (Bld) 70.7 % High 47-70 [facility] Comment on above: Performed By: #### L 100.0100, L500.2500 ####[facility] [address] [place], [address] Nucleated RBC (Bld) [#/Vol] 0 10*3/uL Normal 0-5 [facility] Comment on above: Performed By: #### L 100.0100, L500.2500 ####[facility] [address] [place], [address] Platelet mean volume (Bld) [Entitic vol] 9.5 fL Normal 6.2-12.0 [facility] Comment on above: Performed By: #### L 100.0100, L500.2500 ####[facility] [address] [place], [address] Platelets (Bld) [#/Vol] 147 10*3/uL Low 150-450 [facility] Comment on above: Performed By: #### L 100.0100, L500.2500 ####[facility] [address] [place], [address] RBC (Bld) [#/Vol] 4.27 10*6/uL Normal 4.2-5.4 [facility] Comment on above: Performed By: #### L 100.0100, L500.2500 ####[facility] [address] [place], [address] RDW SD 59.1 fl High 35.1-43.9 [facility] Comment on above: Performed By: #### L 100.0100, L500.2500 ####[facility] [address] [place], [address] WBC (Bld) [#/Vol] 6.8 10*3/uL Normal 4.4-11.0 [facility] Comment on above: Performed By: #### L 100.0100, L500.2500 ####[facility] [address] [place], [address] Carbon dioxide, total [Moles /volume] in Central venous bloodOrdered By: Ramírez Onofre on 07-22-2025 CO2 [Moles/Vol] 34.0 mmol/L High 21.0-32.0 [facility] Chloride assayOrdered By: Jesse Onofre on 07-22-2025 Chloride [Moles/Vol] 94 mmol/L Low 98-108 [facility] Emergency Department Summary on 07-22-2025 Emergency Department Summary Normal [facility] Eosinophil percentageOrdered By: Ramírez Onofre on 07-22-2025 Eosinophils/100 WBC (Bld) 5.0 % 0-5 [facility] Erythrocyte distribution wid th ratioOrdered By: Ramírez Onofre on 07-22-2025 Erythrocyte distribution width (RBC) [Ratio] 18.6 % High 11.6-14.6 [facility] Erythrocyte distribution wid th standard deviationOrdered By: Ramírez Onofre on 07-22-2025 Erythrocyte distribution width (RBC) [Ratio] 59.1 fl High 35.1-43.9 [facility] Glomerular filtration rate ( GFR) estimation/1.73 sq m using serum, plasma, or whole bOrdered By: Ramírez Onofre on 07-22-2025 GFR/1.73 sq M.predicted among non-blacks MDRD (S/P/Bld) [Vol rate/Area] 51 mL/min/{1.73_m2} Low >60 [facility] Hematocrit Auto (Bld) [Volum e fraction]Ordered By: Ramírez Onofre on 07-22-2025 Hematocrit (Bld) [Volume fraction] 36.7 % Low 37-47 [facility] Hemoglobin measurementOrdere d By: Ramírez Onofre on 07-22-2025 Hemoglobin (Bld) [Mass/Vol] 11.6 g/dL Low 12.0-15.0 [facility] Immature granulocytes/100 WB C Auto (Bld)Ordered By: Ramírez Onofre on 07-22-2025 Immature granulocytes/100 WBC (Bld) 1.200 % High 0.0-0.9 [facility] MCV (mean corpuscular volume ) determinationOrdered By: Ramírez Onofre on 07-22-2025 MCV (RBC) [Entitic vol] 85.9 fL 81-99 [facility] Mean corpuscular hemoglobin (MCH) determinationOrdered By: Ramírez Onofre on 07-22-2025 MCH (RBC) [Entitic mass] 27.2 pg 27.0-32.0 [facility] Monocyte percentageOrdered B y: Ramírez Onofre on 07-22-2025 Monocytes/100 WBC (Bld) 9.6 % 0-10 [facility] Neutrophil percentageOrdered By: Ramírez Onofre on 07-22-2025 Neutrophils/100 WBC (Bld) 70.7 % High 47-70 [facility] Platelet countOrdered By: Jesse Onofre on 07-22-2025 Platelets (Bld) [#/Vol] 147 10*3/uL Low 150-450 [facility] Potassium measurement (mass/ volume)Ordered By: Ramírez Onofre on 07-22-2025 Potassium (Unsp spec) [Mass/Vol] 4.0 mmol/L 3.3-5.1 [facility] RBC Auto (Bld) [#/Vol]Ordere d By: Ramírez Onofre on 07-22-2025 RBC (Bld) [#/Vol] 4.27 10*6/uL 4.2-5.4 [facility] Serum creatinine measurement (mass/volume)Ordered By: Ramírez Onofre on 07-22-2025 Creatinine [Mass/Vol] 1.14 mg/dL 0.70-1.20 [facility] Serum glucose measurement (m ass/volume)Ordered By: Ramírez Onofre on 07-22-2025 Glucose [Mass/Vol] 125 mg/dL High 70-99 [facility] Serum or plasma calcium stefania urement (mass/volume)Ordered By: Ramírez Onofre on 07-22-2025 Calcium [Mass/Vol] 9.4 mg/dL 7.6-11.0 [facility] Serum or plasma urea nitroge n measurement (mass/volume)Ordered By: Ramírez Onofre on 07-22-2025 Urea nitrogen [Mass/Vol] 29 mg/dL High 4-19 [facility] Sodium levelOrdered By: Ramírez Onofre on 07-22-2025 Sodium [Moles/Vol] 139 mmol/L 133-145 [facility] White blood cell (WBC) count Ordered By: Ramírez Onofre on 07-22-2025 WBC (Bld) [#/Vol] 6.8 10*3/uL 4.4-11.0 [facility] Brain/Head without Contrasto n 07-05-2025 Brain/Head without Contrast Normal [facility] Emergency Department Summary on 07-05-2025 Emergency Department Summary Normal [facility] Absolute lymphocyte countOrd ered By: Lucas Wyatt on 06-24-2025 Lymphocytes Auto (Unsp spec) [#/Vol] 0.91 10*3/uL 0.83-4.51 [facility] Anion gap in Serum or Plasma Ordered By: Lucas Wyatt on 06-24-2025 Anion gap [Moles/Vol] 9 mmol/L 5-15 [facility] Automated lymphocyte count a s percentage of total leukocytesOrdered By: Lucas Wyatt on 06-24-2025 Lymphocytes/100 WBC Auto (Unsp spec) 16.2 % Low 19-41 [facility] BUN/creatinine ratioOrdered By: Lucas Wyatt on 06-24-2025 Urea nitrogen/Creatinine [Mass ratio] 30.0 mg/mg High 10-20 [facility] Basophil percentageOrdered B y: Lucas Wyatt on 06-24-2025 Basophils/100 WBC (Bld) 0.9 % 0-1 [facility] Blood polychromasia detectio n by light microscopyOrdered By: Lucas Wyatt on 06-24-2025 Polychromasia LM Ql (Bld) 1+ [facility] Carbon dioxide, total [Moles /volume] in Central venous bloodOrdered By: Lucas Wyatt on 06-24-2025 CO2 [Moles/Vol] 35.3 mmol/L High 21.0-32.0 [facility] Chloride assayOrdered By: David Wyatt on 06-24-2025 Chloride [Moles/Vol] 96 mmol/L Low 98-108 [facility] Eosinophil percentageOrdered By: Lucas Wyatt on 06-24-2025 Eosinophils/100 WBC (Bld) 5.3 % High 0-5 [facility] Erythrocyte distribution wid th ratioOrdered By: ray Wyatt on 06-24-2025 Erythrocyte distribution width (RBC) [Ratio] 20.4 % High 11.6-14.6 [facility] Erythrocyte distribution wid th standard deviationOrdered By: Lucas Wyatt on 06-24-2025 Erythrocyte distribution width (RBC) [Ratio] 63.2 fl High 35.1-43.9 [facility] Glomerular filtration rate ( GFR) estimation/1.73 sq m using serum, plasma, or whole bOrdered By: Lucas Wyatt on 06-24-2025 GFR/1.73 sq M.predicted among non-blacks MDRD (S/P/Bld) [Vol rate/Area] 57 mL/min/{1.73_m2} Low >60 [facility] Hematocrit Auto (Bld) [Volum e fraction]Ordered By: Lucas Wyatt on 06-24-2025 Hematocrit (Bld) [Volume fraction] 32.0 % Low 37-47 [facility] Hemoglobin measurementOrdere d By: Lucas Wyatt on 06-24-2025 Hemoglobin (Bld) [Mass/Vol] 9.7 g/dL Low 12.0-15.0 [facility] Immature granulocytes/100 WB C Auto (Bld)Ordered By: Lucas Wyatt on 06-24-2025 Immature granulocytes/100 WBC (Bld) 0.500 % 0.0-0.9 [facility] MCV (mean corpuscular volume ) determinationOrdered By: Lucas Wyatt on 06-24-2025 MCV (RBC) [Entitic vol] 85.8 fL 81-99 [facility] Mean corpuscular hemoglobin (MCH) determinationOrdered By: Lucas Wyatt on 06-24-2025 MCH (RBC) [Entitic mass] 26.0 pg Low 27.0-32.0 [facility] Monocyte percentageOrdered B y: Lucas Wyatt on 06-24-2025 Monocytes/100 WBC (Bld) 14.4 % High 0-10 [facility] Neutrophil percentageOrdered By: Lucas Wyatt on 06-24-2025 Neutrophils/100 WBC (Bld) 62.7 % 47-70 [facility] No Panel InformationOrdered By: Lucas Wyatt on 06-24-2025 1+ [facility] Ovalocyte detectionOrdered B y: Lucas Wyatt on 06-24-2025 Ovalocytes LM Ql (Bld) 1+ [facility] Platelet countOrdered By: David Wyatt on 06-24-2025 Platelets (Bld) [#/Vol] 225 10*3/uL 150-450 [facility] Platelet estimateOrdered By: Lucas Wyatt on 06-24-2025 Platelets LM Ql (Bld) ADEQUATE ADEQ [facility] Potassium measurement (mass/ volume)Ordered By: Lucas Wyatt on 06-24-2025 Potassium (Unsp spec) [Mass/Vol] 3.9 mmol/L 3.3-5.1 [facility] RBC Auto (Bld) [#/Vol]Ordere d By: Lucas Wyatt on 06-24-2025 RBC (Bld) [#/Vol] 3.73 10*6/uL Low 4.2-5.4 [facility] Serum creatinine measurement (mass/volume)Ordered By: Lucas Wyatt on 06-24-2025 Creatinine [Mass/Vol] 1.05 mg/dL 0.70-1.20 [facility] Serum glucose measurement (m ass/volume)Ordered By: Lucas Wyatt on 06-24-2025 Glucose [Mass/Vol] 81 mg/dL 70-99 [facility] Serum or plasma calcium stefania urement (mass/volume)Ordered By: Karricarmenyo Rutledgenaveedmarcelle on 06-24-2025 Calcium [Mass/Vol] 9.3 mg/dL 7.6-11.0 [facility] Serum or plasma urea nitroge n measurement (mass/volume)Ordered By: Lucas Rutledgenaveedmarcelle on 06-24-2025 Urea nitrogen [Mass/Vol] 32 mg/dL High 4-19 [facility] Sodium levelOrdered By: Karri benito Aamirnaveedmarcelle on 06-24-2025 Sodium [Moles/Vol] 141 mmol/L 133-145 [facility] White blood cell (WBC) count Ordered By: Lucas Wyatt on 06-24-2025 WBC (Bld) [#/Vol] 5.6 10*3/uL 4.4-11.0 [facility] Absolute lymphocyte countOrd ered By: Lucas Wyatt on 06-17-2025 Lymphocytes Auto (Unsp spec) [#/Vol] 0.91 10*3/uL 0.83-4.51 [facility] Anion gap in Serum or Plasma Ordered By: Lucas Wyatt on 06-17-2025 Anion gap [Moles/Vol] 9 mmol/L 5-15 [facility] Automated lymphocyte count a s percentage of total leukocytesOrdered By: Lucas Wyatt on 06-17-2025 Lymphocytes/100 WBC Auto (Unsp spec) 13.6 % Low 19-41 [facility] BUN/creatinine ratioOrdered By: Lucas Wyatt on 06-17-2025 Urea nitrogen/Creatinine [Mass ratio] 28.7 mg/mg High 10-20 [facility] Basophil percentageOrdered B y: Davidrandalcarmenyo Rutledgenaveedmarcelle on 06-17-2025 Basophils/100 WBC (Bld) 0.6 % 0-1 [facility] Carbon dioxide, total [Moles /volume] in Central venous bloodOrdered By: Lucas Wyatt on 06-17-2025 CO2 [Moles/Vol] 35.8 mmol/L High 21.0-32.0 [facility] Chloride assayOrdered By: David Wyatt on 06-17-2025 Chloride [Moles/Vol] 93 mmol/L Low 98-108 [facility] Eosinophil percentageOrdered By: Lucas Wyatt on 06-17-2025 Eosinophils/100 WBC (Bld) 2.8 % 0-5 [facility] Erythrocyte distribution wid th ratioOrdered By: Lucas Wyatt on 06-17-2025 Erythrocyte distribution width (RBC) [Ratio] 19.1 % High 11.6-14.6 [facility] Erythrocyte distribution wid th standard deviationOrdered By: Lucas Wyatt on 06-17-2025 Erythrocyte distribution width (RBC) [Ratio] 58.8 fl High 35.1-43.9 [facility] Glomerular filtration rate ( GFR) estimation/1.73 sq m using serum, plasma, or whole bOrdered By: Lucas Wyatt on 06-17-2025 GFR/1.73 sq M.predicted among non-blacks MDRD (S/P/Bld) [Vol rate/Area] 58 mL/min/{1.73_m2} Low >60 [facility] Hematocrit Auto (Bld) [Volum e fraction]Ordered By: Lucas Wyatt 06-17-2025 Hematocrit (Bld) [Volume fraction] 32.0 % Low 37-47 [facility] Hemoglobin measurementOrdere d By: Lucas Wyatt 06-17-2025 Hemoglobin (Bld) [Mass/Vol] 9.6 g/dL Low 12.0-15.0 [facility] Immature granulocytes/100 WB C Auto (Bld)Ordered By: Lucas Wyatt on 06-17-2025 Immature granulocytes/100 WBC (Bld) 0.600 % 0.0-0.9 [facility] MCV (mean corpuscular volume ) determinationOrdered By: Lucas Wyatt on 06-17-2025 MCV (RBC) [Entitic vol] 85.1 fL 81-99 [facility] Mean corpuscular hemoglobin (MCH) determinationOrdered By: Lucas Wyatt 06-17-2025 MCH (RBC) [Entitic mass] 25.5 pg Low 27.0-32.0 [facility] Monocyte percentageOrdered B y: Lucas Wyatt on 06-17-2025 Monocytes/100 WBC (Bld) 12.7 % High 0-10 [facility] Neutrophil percentageOrdered By: Lucas Wytat on 06-17-2025 Neutrophils/100 WBC (Bld) 69.7 % 47-70 [facility] Platelet countOrdered By: David Wyatt on 06-17-2025 Platelets (Bld) [#/Vol] 211 10*3/uL 150-450 [facility] Potassium measurement (mass/ volume)Ordered By: Lucas Wyatt on 06-17-2025 Potassium (Unsp spec) [Mass/Vol] 3.8 mmol/L 3.3-5.1 [facility] RBC Auto (Bld) [#/Vol]Ordere d By: Lucas Wyatt on 06-17-2025 RBC (Bld) [#/Vol] 3.76 10*6/uL Low 4.2-5.4 [facility] Serum creatinine measurement (mass/volume)Ordered By: Lucas Wyatt on 06-17-2025 Creatinine [Mass/Vol] 1.04 mg/dL 0.70-1.20 [facility] Serum glucose measurement (m ass/volume)Ordered By: Lucas Wyatt on 06-17-2025 Glucose [Mass/Vol] 87 mg/dL 70-99 [facility] Serum or plasma calcium stefania urement (mass/volume)Ordered By: Lucas Wyatt on 06-17-2025 Calcium [Mass/Vol] 9.1 mg/dL 7.6-11.0 [facility] Serum or plasma urea nitroge n measurement (mass/volume)Ordered By: Lucas Wyatt on 06-17-2025 Urea nitrogen [Mass/Vol] 30 mg/dL High 4-19 [facility] Sodium levelOrdered By: Karri Wyatt on 06-17-2025 Sodium [Moles/Vol] 138 mmol/L 133-145 [facility] White blood cell (WBC) count Ordered By: Lucas Wyatt on 06-17-2025 WBC (Bld) [#/Vol] 6.7 10*3/uL 4.4-11.0 [facility] Absolute lymphocyte countOrd ered By: Karribenito Allenmarcelle on 06-10-2025 Lymphocytes Auto (Unsp spec) [#/Vol] 1.52 10*3/uL 0.83-4.51 [facility] Anion gap in Serum or Plasma Ordered By: Lucas Wyatt on 06-10-2025 Anion gap [Moles/Vol] 11 mmol/L 5-15 [facility] Automated lymphocyte count a s percentage of total leukocytesOrdered By: Lucas Rutledgenaveedmarcelle on 06-10-2025 Lymphocytes/100 WBC Auto (Unsp spec) 24.7 % 19-41 [facility] BUN/creatinine ratioOrdered By: Karricarmenyo Rutledgenaveedmarcelle on 06-10-2025 Urea nitrogen/Creatinine [Mass ratio] 22.8 mg/mg High 10-20 [facility] Basophil percentageOrdered B y: Karricarmenyo Rutledgenaveedmarcelle on 06-10-2025 Basophils/100 WBC (Bld) 1.1 % High 0-1 [facility] Bilirubin, totalOrdered By: Karricarmenyo Rutledgenaveedmarcelle on 06-10-2025 Bilirubin [Mass/Vol] 0.45 mg/dL 0.00-1.30 [facility] Carbon dioxide, total [Moles /volume] in Central venous bloodOrdered By: Lucas Rutledgenaveedmarcelle on 06-10-2025 CO2 [Moles/Vol] 30.2 mmol/L 21.0-32.0 [facility] Chloride assayOrdered By: David shantelyo Rutledgenaveedmarcelle on 06-10-2025 Chloride [Moles/Vol] 96 mmol/L Low 98-108 [facility] Eosinophil percentageOrdered By: Davidrandalbenito Aamirnaveedmarcelle on 06-10-2025 Eosinophils/100 WBC (Bld) 5.8 % High 0-5 [facility] Erythrocyte distribution wid th ratioOrdered By: Davidrandalcarmenyo Rutledgenaveedmarcelle on 06-10-2025 Erythrocyte distribution width (RBC) [Ratio] 19.4 % High 11.6-14.6 [facility] Erythrocyte distribution wid th standard deviationOrdered By: Lucas Wyatt on 06-10-2025 Erythrocyte distribution width (RBC) [Ratio] 59.2 fl High 35.1-43.9 [facility] Glomerular filtration rate ( GFR) estimation/1.73 sq m using serum, plasma, or whole bOrdered By: Lucas Wyatt on 06-10-2025 GFR/1.73 sq M.predicted among non-blacks MDRD (S/P/Bld) [Vol rate/Area] 53 mL/min/{1.73_m2} Low >60 [facility] Hematocrit Auto (Bld) [Volum e fraction]Ordered By: Lucas Wyatt on 06-10-2025 Hematocrit (Bld) [Volume fraction] 30.1 % Low 37-47 [facility] Hemoglobin measurementOrdere d By: Lucas Wyatt on 06-10-2025 Hemoglobin (Bld) [Mass/Vol] 9.3 g/dL Low 12.0-15.0 [facility] Immature granulocytes/100 WB C Auto (Bld)Ordered By: Lucas Wyatt on 06-10-2025 Immature granulocytes/100 WBC (Bld) 0.500 % 0.0-0.9 [facility] MCV (mean corpuscular volume ) determinationOrdered By: Lucas Wyatt on 06-10-2025 MCV (RBC) [Entitic vol] 83.1 fL 81-99 [facility] Mean corpuscular hemoglobin (MCH) determinationOrdered By: Lucas Wyatt on 06-10-2025 MCH (RBC) [Entitic mass] 25.7 pg Low 27.0-32.0 [facility] Monocyte percentageOrdered B y: Lucas Wyatt on 06-10-2025 Monocytes/100 WBC (Bld) 10.1 % High 0-10 [facility] Neutrophil percentageOrdered By: Lucas Wyatt on 06-10-2025 Neutrophils/100 WBC (Bld) 57.8 % 47-70 [facility] No Panel InformationOrdered By: Lucas Wyatt on 06-10-2025 18 U/L <32 [facility] Platelet countOrdered By: David Wyatt on 06-10-2025 Platelets (Bld) [#/Vol] 148 10*3/uL Low 150-450 [facility] Potassium measurement (mass/ volume)Ordered By: Lucas Wyatt on 06-10-2025 Potassium (Unsp spec) [Mass/Vol] 3.9 mmol/L 3.3-5.1 [facility] RBC Auto (Bld) [#/Vol]Ordere d By: Lucas Wyatt on 06-10-2025 RBC (Bld) [#/Vol] 3.62 10*6/uL Low 4.2-5.4 [facility] Serum creatinine measurement (mass/volume)Ordered By: Lucas Wyatt on 06-10-2025 Creatinine [Mass/Vol] 1.11 mg/dL 0.70-1.20 [facility] Serum globulin measurementOr dered By: Lucas Wyatt on 06-10-2025 Globulin (S) [Mass/Vol] 2.1 g/dL Low 2.2-4.2 [facility] Serum glucose measurement (m ass/volume)Ordered By: Lucas Wyatt on 06-10-2025 Glucose [Mass/Vol] 102 mg/dL High 70-99 [facility] Serum or plasma alanine pizarro otransferase (ALT) measurementOrdered By: Lucas Wyatt 06-10-2025 ALT [Catalytic activity/Vol] 18 U/L <35 [facility] Serum or plasma albumin stefania urement (mass/volume)Ordered By: Lucas Wyatt 06-10-2025 Albumin [Mass/Vol] 3.6 g/dL 3.4-4.8 [facility] Serum or plasma albumin/glob ulin mass ratioOrdered By: Lucas Wyatt 06-10-2025 Albumin/Globulin [Mass ratio] 1.7 {ratio} 0.9-2.4 [facility] Serum or plasma alkaline anthoyn sphatase measurementOrdered By: Lucas Wyatt 06-10-2025 ALP [Catalytic activity/Vol] 125 U/L High 35-104 [facility] Serum or plasma calcium stefania urement (mass/volume)Ordered By: Lucas Wyatt on 06-10-2025 Calcium [Mass/Vol] 8.5 mg/dL 7.6-11.0 [facility] Serum or plasma urea nitroge n measurement (mass/volume)Ordered By: Lucas Wyatt on 06-10-2025 Urea nitrogen [Mass/Vol] 25 mg/dL High 4-19 [facility] Sodium levelOrdered By: Karri Wyatt on 06-10-2025 Sodium [Moles/Vol] 138 mmol/L 133-145 [facility] Total proteinOrdered By: Amandeep Wyatt on 06-10-2025 Protein [Mass/Vol] 5.7 g/dL Low 5.9-8.4 [facility] White blood cell (WBC) count Ordered By: Lucas Wyatt on 06-10-2025 WBC (Bld) [#/Vol] 6.2 10*3/uL 4.4-11.0 [facility] HH, Hemoglobin AND Hematocri ton 06-09-2025 Hematocrit (Bld) [Volume fraction] 26.7 % Low 37-47 [facility] Comment on above: Performed By: #### L 100.0600 ####[facility] [address] [place], [place], [id number] Hemoglobin (Bld) [Mass/Vol] 8.2 g/dL Low 12.0-15.0 [facility] Comment on above: Performed By: #### L 100.0600 ####[facility] [address] [place], [address] Hematocrit Auto (Bld) [Volum e fraction]Ordered By: Dex Worrell on 06-09-2025 Hematocrit (Bld) [Volume fraction] 26.7 % Low 37-47 [facility] Hemoglobin measurementOrdere d By: Dex Worrell on 06-09-2025 Hemoglobin (Bld) [Mass/Vol] 8.2 g/dL Low 12.0-15.0 [facility] Absolute lymphocyte countOrd ered By: Roman Mckeon on 06-08-2025 Lymphocytes Auto (Unsp spec) [#/Vol] 0.55 10*3/uL Low 0.83-4.51 [facility] Anion gap in Serum or Plasma Ordered By: Roman Mckeon on 06-08-2025 Anion gap [Moles/Vol] 10 mmol/L 5-15 [facility] Automated lymphocyte count a s percentage of total leukocytesOrdered By: Roman Mckeon on 06-08-2025 Lymphocytes/100 WBC Auto (Unsp spec) 5.5 % Low - [facility] BUN/creatinine ratioOrdered By: Roman Mckeon on 06-08-2025 Urea nitrogen/Creatinine [Mass ratio] 12.1 mg/mg 09-07 [facility] Basic Metabolic Profile (BMP )on 06-08-2025 BUN/CRE 12.1 RATIO Normal 09-07 [facility] Comment on above: Performed By: #### L 100.0100, L500.2500 ####[facility] [address] [place], [address] Calcium [Mass/Vol] 9.0 mg/dL Normal 7.6-11.0 [facility] Comment on above: Performed By: #### L 100.0100, L500.2500 ####[facility] [address] [place], [address] Chloride [Moles/Vol] 106 mmol/L Normal 98-108 [facility] Comment on above: Performed By: #### L 100.0100, L500.2500 ####[facility] [address] [place], [address] CO2 [Moles/Vol] 25.4 mmol/L Normal 21.0-32.0 [facility] Comment on above: Performed By: #### L 100.0100, L500.2500 ####[facility] [address] [place], [address] Creatinine [Mass/Vol] 1.04 mg/dL Normal 0.70-1.20 [facility] Comment on above: Performed By: #### L 100.0100, L500.2500 ####[facility] [address] [place], [address] ECRCL 41.12 ml/min Low 50-250 [facility] Comment on above: Performed By: #### L 100.0100, L500.2500 ####[facility] [address] [place], [address] GAP 10 Normal 5-15 [facility] Comment on above: Performed By: #### L 100.0100, L500.2500 ####[facility] [address] [place], [address] GFR/1.73 sq M.predicted among non-blacks MDRD (S/P/Bld) [Vol rate/Area] 58 mL/min/{1.73_m2} Low >60 [facility] Comment on above: Result Comment: mL/m in/1.73m2 CKD-EPI Creatinine Equation (2020) Performed By: #### L 100.0100, L500.2500 ####[facility] [address] [place], [address] Glucose [Mass/Vol] 157 mg/dL High 70-99 [facility] Comment on above: Performed By: #### L 100.0100, L500.2500 ####[facility] [address] [place], [address] Potassium [Moles/Vol] 4.4 mmol/L Normal 3.3-5.1 [facility] Comment on above: Performed By: #### L 100.0100, L500.2500 ####[facility] [address] [place], [address] Sodium [Moles/Vol] 141 mmol/L Normal 133-145 [facility] Comment on above: Performed By: #### L 100.0100, L500.2500 ####[facility] [address] [place], [address] Urea nitrogen [Mass/Vol] 13 mg/dL Normal 4-19 [facility] Comment on above: Performed By: #### L 100.0100, L500.2500 ####[facility] [address] [place], [address] Basophil percentageOrdered B y: Roman Sathishmagali on 06-08-2025 Basophils/100 WBC (Bld) 0.5 % 0-1 [facility] CBC W/Diff, Automatedon 05-20 Absolute Lymph 0.55 X10 3/uL Low 0.83-4.51 [facility] Comment on above: Performed By: #### L 100.0100, L500.2500 ####[facility] [address] [place], [address] Absolute Neut 8.8 X10 3/uL High 2.0-7.7 [facility] Comment on above: Performed By: #### L 100.0100, L500.2500 ####[facility] [address] [place], [address] Basophils/100 WBC (Bld) 0.5 % Normal 0-1 [facility] Comment on above: Performed By: #### L 100.0100, L500.2500 ####[facility] [address] [place], [address] Eosinophils/100 WBC (Bld) 1.4 % Normal 0-5 [facility] Comment on above: Performed By: #### L 100.0100, L500.2500 ####[facility] [address] [place], [address] Erythrocyte distribution width (RBC) [Ratio] 18.8 % High 11.6-14.6 [facility] Comment on above: Performed By: #### L 100.0100, L500.2500 ####[facility] [address] [place], [address] Hematocrit (Bld) [Volume fraction] 29.5 % Low 37-47 [facility] Comment on above: Performed By: #### L 100.0100, L500.2500 ####[facility] [address] [place], [address] Hemoglobin (Bld) [Mass/Vol] 9.0 g/dL Low 12.0-15.0 [facility] Comment on above: Performed By: #### L 100.0100, L500.2500 ####[facility] [address] [place], [address] IG% 0.500 Normal 0.0-0.9 [facility] Comment on above: Result Comment: IG% - Immature Granulocytes (promyelocytes, myelocytes andmetamyelocytes) > 1% indicates that a LEFT SHIFT is Present. Performed By: #### L 100.0100, L500.2500 ####[facility] [address] [place], [address] Lymphocytes/100 WBC (Bld) 5.5 % Low 19-41 [facility] Comment on above: Performed By: #### L 100.0100, L500.2500 ####[facility] [address] [place], [address] MCH (RBC) [Entitic mass] 26.1 pg Low 27.0-32.0 [facility] Comment on above: Performed By: #### L 100.0100, L500.2500 ####[facility] [address] [place], [address] MCHC (RBC) [Mass/Vol] 30.5 g/dL Low 32-36 [facility] Comment on above: Performed By: #### L 100.0100, L500.2500 ####[facility] [address] [place], [address] MCV (RBC) [Entitic vol] 85.5 fL Normal 81-99 [facility] Comment on above: Performed By: #### L 100.0100, L500.2500 ####[facility] [address] [place], [address] Monocytes/100 WBC (Bld) 5.2 % Normal 0-10 [facility] Comment on above: Performed By: #### L 100.0100, L500.2500 ####[facility] [address] [place], [address] Neutrophils/100 WBC (Bld) 86.9 % High 47-70 [facility] Comment on above: Performed By: #### L 100.0100, L500.2500 ####[facility] [address] [place], [address] Nucleated RBC (Bld) [#/Vol] 0 10*3/uL Normal 0-5 [facility] Comment on above: Performed By: #### L 100.0100, L500.2500 ####[facility] [address] [place], [address] Platelet mean volume (Bld) [Entitic vol] 9.6 fL Normal 6.2-12.0 [facility] Comment on above: Performed By: #### L 100.0100, L500.2500 ####[facility] [address] [place], [address] Platelets (Bld) [#/Vol] 109 10*3/uL Low 150-450 [facility] Comment on above: Performed By: #### L 100.0100, L500.2500 ####[facility] [address] [place], [address] RBC (Bld) [#/Vol] 3.45 10*6/uL Low 4.2-5.4 [facility] Comment on above: Performed By: #### L 100.0100, L500.2500 ####[facility] [address] [place], [address] RDW SD 59.3 fl High 35.1-43.9 [facility] Comment on above: Performed By: #### L 100.0100, L500.2500 ####[facility] [address] [place], [address] WBC (Bld) [#/Vol] 10.1 10*3/uL Normal 4.4-11.0 [facility] Comment on above: Performed By: #### L 100.0100, L500.2500 ####[facility] [address] [place], [address] Carbon dioxide, total [Moles /volume] in Central venous bloodOrdered By: Roman Mckeon on 06-08-2025 CO2 [Moles/Vol] 25.4 mmol/L 21.0-32.0 [facility] Chloride assayOrdered By: Edgar Mckeon on 06-08-2025 Chloride [Moles/Vol] 106 mmol/L 98-108 [facility] Eosinophil percentageOrdered By: Roman Mckeon on 06-08-2025 Eosinophils/100 WBC (Bld) 1.4 % 0-5 [facility] Erythrocyte distribution wid th ratioOrdered By: Roman Mckeon on 06-08-2025 Erythrocyte distribution width (RBC) [Ratio] 18.8 % High 11.6-14.6 [facility] Erythrocyte distribution wid th standard deviationOrdered By: Roman Mckeon on 06-08-2025 Erythrocyte distribution width (RBC) [Ratio] 59.3 fl High 35.1-43.9 [facility] Glomerular filtration rate ( GFR) estimation/1.73 sq m using serum, plasma, or whole bOrdered By: Roman Mckeon on 06-08-2025 GFR/1.73 sq M.predicted among non-blacks MDRD (S/P/Bld) [Vol rate/Area] 58 mL/min/{1.73_m2} Low >60 [facility] Immature granulocytes/100 WB C Auto (Bld)Ordered By: Roman Mckeon on 06-08-2025 Immature granulocytes/100 WBC (Bld) 0.500 % 0.0-0.9 [facility] MCV (mean corpuscular volume ) determinationOrdered By: Roman Mckeon on 06-08-2025 MCV (RBC) [Entitic vol] 85.5 fL 81-99 [facility] Mean corpuscular hemoglobin (MCH) determinationOrdered By: Roman Mckeon on 06-08-2025 MCH (RBC) [Entitic mass] 26.1 pg Low 27.0-32.0 [facility] Monocyte percentageOrdered B y: Roman Mckeon on 06-08-2025 Monocytes/100 WBC (Bld) 5.2 % 0-10 [facility] Neutrophil percentageOrdered By: Roman Mckeon on 06-08-2025 Neutrophils/100 WBC (Bld) 86.9 % High 47-70 [facility] Platelet countOrdered By: Edgar Mckeon on 06-08-2025 Platelets (Bld) [#/Vol] 109 10*3/uL Low 150-450 [facility] Potassium measurement (mass/ volume)Ordered By: Roman Mckeon on 06-08-2025 Potassium (Unsp spec) [Mass/Vol] 4.4 mmol/L 3.3-5.1 [facility] RBC Auto (Bld) [#/Vol]Ordere d By: Roman Mckeon on 06-08-2025 RBC (Bld) [#/Vol] 3.45 10*6/uL Low 4.2-5.4 [facility] Serum creatinine measurement (mass/volume)Ordered By: Roman Mckeon on 06-08-2025 Creatinine [Mass/Vol] 1.04 mg/dL 0.70-1.20 [facility] Serum glucose measurement (m ass/volume)Ordered By: Roman Mckeon on 06-08-2025 Glucose [Mass/Vol] 157 mg/dL High 70-99 [facility] Serum or plasma calcium stefania urement (mass/volume)Ordered By: Roman Mckeon on 06-08-2025 Calcium [Mass/Vol] 9.0 mg/dL 7.6-11.0 [facility] Serum or plasma urea nitroge n measurement (mass/volume)Ordered By: Roman Mckeon on 06-08-2025 Urea nitrogen [Mass/Vol] 13 mg/dL 4-19 [facility] Sodium levelOrdered By: Domingo Mckeon on 06-08-2025 Sodium [Moles/Vol] 141 mmol/L 133-145 [facility] Urine Cultureon 06-08-2025 URC Culture exhibits no growth. Normal [facility] Comment on above: Performed By: #### M 100.2200, L400.0001 ####[facility] [address] [place], [address] White blood cell (WBC) count Ordered By: Roman Mckeon on 06-08-2025 WBC (Bld) [#/Vol] 10.1 10*3/uL 4.4-11.0 [facility] Basic Metabolic Profile (BMP )on 06-07-2025 BUN/CRE 16.1 RATIO Normal 10-20 [facility] Comment on above: Performed By: #### L 500.2500, L100.0500, L501.5200 ####[facility] [address] [place], [address] Calcium [Mass/Vol] 8.4 mg/dL Normal 7.6-11.0 [facility] Comment on above: Performed By: #### L 500.2500, L100.0500, L501.5200 ####[facility] [address] [place], [address] Chloride [Moles/Vol] 102 mmol/L Normal 98-108 [facility] Comment on above: Performed By: #### L 500.2500, L100.0500, L501.5200 ####[facility] [address] [place], [address] CO2 [Moles/Vol] 27.2 mmol/L Normal 21.0-32.0 [facility] Comment on above: Performed By: #### L 500.2500, L100.0500, L501.5200 ####[facility] [address] [place], [address] Creatinine [Mass/Vol] 0.97 mg/dL Normal 0.70-1.20 [facility] Comment on above: Performed By: #### L 500.2500, L100.0500, L501.5200 ####[facility] [address] [place], [address] ECRCL 42.68 ml/min Low 50-250 [facility] Comment on above: Performed By: #### L 500.2500, L100.0500, L501.5200 ####[facility] [address] [place], [address] GAP 9 Normal 5-15 [facility] Comment on above: Performed By: #### L 500.2500, L100.0500, L501.5200 ####[facility] [address] [place], [address] GFR/1.73 sq M.predicted among non-blacks MDRD (S/P/Bld) [Vol rate/Area] 63 mL/min/{1.73_m2} Normal >60 [facility] Comment on above: Result Comment: mL/m in/1.73m2 CKD-EPI Creatinine Equation (2020) Performed By: #### L 500.2500, L100.0500, L501.5200 ####[facility] [address] [place], [address] Glucose [Mass/Vol] 108 mg/dL High 70-99 [facility] Comment on above: Performed By: #### L 500.2500, L100.0500, L501.5200 ####[facility] [address] [place], [address] Potassium [Moles/Vol] 5.1 mmol/L Normal 3.3-5.1 [facility] Comment on above: Performed By: #### L 500.2500, L100.0500, L501.5200 ####[facility] [address] [place], [address] Sodium [Moles/Vol] 138 mmol/L Normal 133-145 [facility] Comment on above: Performed By: #### L 500.2500, L100.0500, L501.5200 ####[facility] [address] [place], [address] Urea nitrogen [Mass/Vol] 16 mg/dL Normal 4-19 [facility] Comment on above: Performed By: #### L 500.2500, L100.0500, L501.5200 ####[facility] [address] [place], [address] Bilirubin Test strip Ql (U)O rdered By: Roman Mckeon on 06-07-2025 Bilirubin Ql (U) Negative Negative [facility] Brain/Head without Contrasto n 06-07-2025 Brain/Head without Contrast Normal [facility] CBC-Complete Blood Cnt No Di ffon 06-07-2025 Erythrocyte distribution width (RBC) [Ratio] 18.6 % High 11.6-14.6 [facility] Comment on above: Performed By: #### L 500.2500, L100.0500, L501.5200 ####[facility] [address] [place], [address] Hematocrit (Bld) [Volume fraction] 31.7 % Low 37-47 [facility] Comment on above: Performed By: #### L 500.2500, L100.0500, L501.5200 ####[facility] [address] [place], [address] Hemoglobin (Bld) [Mass/Vol] 9.7 g/dL Low 12.0-15.0 [facility] Comment on above: Performed By: #### L 500.2500, L100.0500, L501.5200 ####[facility] [address] [place], [address] MCH (RBC) [Entitic mass] 25.7 pg Low 27.0-32.0 [facility] Comment on above: Performed By: #### L 500.2500, L100.0500, L501.5200 ####[facility] [address] [place], [address] MCHC (RBC) [Mass/Vol] 30.6 g/dL Low 32-36 [facility] Comment on above: Performed By: #### L 500.2500, L100.0500, L501.5200 ####[facility] [address] [place], [address] MCV (RBC) [Entitic vol] 84.1 fL Normal 81-99 [facility] Comment on above: Performed By: #### L 500.2500, L100.0500, L501.5200 ####[facility] [address] [place], [address] Platelet mean volume (Bld) [Entitic vol] 9.2 fL Normal 6.2-12.0 [facility] Comment on above: Performed By: #### L 500.2500, L100.0500, L501.5200 ####[facility] [address] [place], [address] Platelets (Bld) [#/Vol] 134 10*3/uL Low 150-450 [facility] Comment on above: Performed By: #### L 500.2500, L100.0500, L501.5200 ####[facility] [address] [place], [address] RBC (Bld) [#/Vol] 3.77 10*6/uL Low 4.2-5.4 [facility] Comment on above: Performed By: #### L 500.2500, L100.0500, L501.5200 ####[facility] [address] [place], [address] RDW SD 57.4 fl High 35.1-43.9 [facility] Comment on above: Performed By: #### L 500.2500, L100.0500, L501.5200 ####[facility] [address] [place], [address] WBC (Bld) [#/Vol] 8.1 10*3/uL Normal 4.4-11.0 [facility] Comment on above: Performed By: #### L 500.2500, L100.0500, L501.5200 ####[facility] [address] [place], [address] Chest without Contraston Chest without Contrast Normal [facility] Hyaline casts LM.LPF (Urine sed) [#/Area]Ordered By: Roman Mckeon on 06-07-2025 Hyaline casts (Urine sed) [#/Area] 0 /[LPF] 0-5 [facility] Ketones Test strip Ql (U)Ord ered By: Roman Mckeon on 06-07-2025 Ketones Ql (U) Negative Negative [facility] Magnesiumon 06-07-2025 Magnesium [Mass/Vol] 1.8 mg/dL Normal 1.5-2.2 [facility] Comment on above: Performed By: #### L 500.2500, L100.0500, L501.5200 ####[facility] [address] [place], [address] Magnesium measurement (mass/ volume)Ordered By: Roman Mckeon on 06-07-2025 Magnesium (Unsp spec) [Mass/Vol] 1.8 mg/dL 1.5-2.2 [facility] Mucus LM Ql (Urine sed)Order ed By: Roman Mckeon on 06-07-2025 Mucus Ql (Urine sed) RARE /hpf [facility] Nitrite Test strip Ql (U)Ord ered By: Roman Mckeon on 06-07-2025 Nitrite Ql (U) Negative Negative [facility] Phosphoruson 06-07-2025 Phosphate [Mass/Vol] 2.6 mg/dL Low 2.7-4.5 [facility] Comment on above: Performed By: #### L 501.2300 ####[facility] [address] [place], [address] Protein Test strip Ql (U)Ord ered By: Roman Mckeon on 06-07-2025 Protein Ql (U) 15 mg/dl High Negative [facility] Squamous epithelial cells de tection in urine sediment by light microscopyOrdered By: Roman Mckeon on 06-07-2025 Epithelial cells.squamous LM Ql (Urine sed) 0-5 SEEN /hpf -10 [facility] Urinalysis, Completeon 06-07 CAST,HYALINE 0-5 SEEN Normal 0-5 [facility] Comment on above: Order Comment: GABY TER SPECIMEN Performed By: #### M 100.2200, L400.0001 ####[facility] [address] [place], [address] EPI,SQUAMOUS 0-5 SEEN Normal - [facility] Comment on above: Order Comment: GABY TER SPECIMEN Performed By: #### M 100.2200, L400.0001 ####[facility] [address] [place], [address] Mucus Ql (Urine sed) RARE Normal [facility] Comment on above: Order Comment: GABY TER SPECIMEN Performed By: #### M 100.2200, L400.0001 ####[facility] [address] [place], [address] WBC 0-5 SEEN Normal 0-5 [facility] Comment on above: Order Comment: GABY TER SPECIMEN Performed By: #### M 100.2200, L400.0001 ####[facility] [address] [place], [address] BACTERIA 0 SEEN Normal None Seen [facility] Comment on above: Order Comment: GABY TER SPECIMEN Performed By: #### M 100.2200, L400.0001 ####[facility] [address] [place], [address] RBC 0 SEEN Normal 0-5 [facility] Comment on above: Order Comment: GABY TER SPECIMEN Performed By: #### M 100.2200, L400.0001 ####[facility] [address] [place], [address] Urine clarityOrdered By: Tripp Mckeon on 06-07-2025 Clarity (U) Clear Clear [facility] Urine color determinationOrd ered By: Roman Mckeon on 06-07-2025 Color (U) Yellow Yellow [facility] Urine cultureOrdered By: Tripp Mckeon on 06-07-2025 Bacteria identified Cx Nom (U) Culture exhibits no growth. [facility] Urine glucose detectionOrder ed By: Roman Mckeon on 06-07-2025 Glucose Ql (U) Normal mg/dl Normal [facility] Urine leukocyte esterase det ection by dipstickOrdered By: Roman Mckeon on 06-07-2025 Leukocyte esterase Test strip Ql (U) Negative Negative [facility] Urine pHOrdered By: Roman kapoor on 06-07-2025 pH (U) 7.0 [pH] 5.0 - 8.0 [facility] Urine sediment bacteria coun t by microscopy (number/high power field)Ordered By: Roman Mckeon on 06-07-2025 Bacteria LM.HPF (Urine sed) [#/Area] 0 /[HPF] None Seen [facility] Urine specific gravity measu rementOrdered By: Roman Mckeon on 06-07-2025 Specific gravity (U) [Rel density] 1.005 1.002-1.03 0 [facility] Urine urobilinogen measureme ntOrdered By: Roman Mckeon on 06-07-2025 Urobilinogen Ql (U) Normal mg/dl Normal [facility] White blood cell countOrdere d By: Roman Mckeon on 06-07-2025 White blood cell count 0-5 SEEN /hpf 0-5 [facility] Basic Metabolic Profile (BMP )on 06-06-2025 BUN/CRE 13.9 RATIO Normal 10-20 [facility] Comment on above: Performed By: #### L 500.2500, L100.0100 ####[facility] [address] [place], [address] Calcium [Mass/Vol] 7.9 mg/dL Normal 7.6-11.0 [facility] Comment on above: Performed By: #### L 500.2500, L100.0100 ####[facility] [address] [place], [address] Chloride [Moles/Vol] 104 mmol/L Normal 98-108 [facility] Comment on above: Performed By: #### L 500.2500, L100.0100 ####[facility] [address] [place], [address] CO2 [Moles/Vol] 26.1 mmol/L Normal 21.0-32.0 [facility] Comment on above: Performed By: #### L 500.2500, L100.0100 ####[facility] [address] [place], [address] Creatinine [Mass/Vol] 0.99 mg/dL Normal 0.70-1.20 [facility] Comment on above: Performed By: #### L 500.2500, L100.0100 ####[facility] [address] [place], [address] ECRCL 40.15 ml/min Low 50-250 [facility] Comment on above: Performed By: #### L 500.2500, L100.0100 ####[facility] [address] [place], [address] GAP 9 Normal 5-15 [facility] Comment on above: Performed By: #### L 500.2500, L100.0100 ####[facility] [address] [place], [address] GFR/1.73 sq M.predicted among non-blacks MDRD (S/P/Bld) [Vol rate/Area] 61 mL/min/{1.73_m2} Normal >60 [facility] Comment on above: Result Comment: mL/m in/1.73m2 CKD-EPI Creatinine Equation (2020) Performed By: #### L 500.2500, L100.0100 ####[facility] [address] [place], [address] Glucose [Mass/Vol] 84 mg/dL Normal 70-99 [facility] Comment on above: Performed By: #### L 500.2500, L100.0100 ####[facility] [address] [place], [address] Potassium [Moles/Vol] 3.3 mmol/L Normal 3.3-5.1 [facility] Comment on above: Performed By: #### L 500.2500, L100.0100 ####[facility] [address] [place], [address] Sodium [Moles/Vol] 139 mmol/L Normal 133-145 [facility] Comment on above: Performed By: #### L 500.2500, L100.0100 ####[facility] [address] [place], [address] Urea nitrogen [Mass/Vol] 14 mg/dL Normal 4-19 [facility] Comment on above: Performed By: #### L 500.2500, L100.0100 ####[facility] [address] [place], [address] CBC W/Diff, Automatedon 05-19 Absolute Lymph 1.30 X10 3/uL Normal 0.83-4.51 [facility] Comment on above: Performed By: #### L 500.2500, L100.0100 ####[facility] [address] [place], [address] Absolute Neut 4.5 X10 3/uL Normal 2.0-7.7 [facility] Comment on above: Performed By: #### L 500.2500, L100.0100 ####[facility] [address] [place], [address] Basophils/100 WBC (Bld) 1.0 % Normal 0-1 [facility] Comment on above: Performed By: #### L 500.2500, L100.0100 ####[facility] [address] [place], [address] Eosinophils/100 WBC (Bld) 3.4 % Normal 0-5 [facility] Comment on above: Performed By: #### L 500.2500, L100.0100 ####[facility] [address] [place], [address] Erythrocyte distribution width (RBC) [Ratio] 18.3 % High 11.6-14.6 [facility] Comment on above: Performed By: #### L 500.2500, L100.0100 ####[facility] [address] [place], [address] Hematocrit (Bld) [Volume fraction] 26.8 % Low 37-47 [facility] Comment on above: Performed By: #### L 500.2500, L100.0100 ####[facility] [address] [place], [address] Hemoglobin (Bld) [Mass/Vol] 8.4 g/dL Low 12.0-15.0 [facility] Comment on above: Performed By: #### L 500.2500, L100.0100 ####[facility] [address] [place], [address] IG% 0.600 Normal 0.0-0.9 [facility] Comment on above: Result Comment: IG% - Immature Granulocytes (promyelocytes, myelocytes andmetamyelocytes) > 1% indicates that a LEFT SHIFT is Present. Performed By: #### L 500.2500, L100.0100 ####[facility] [address] [place], [address] Lymphocytes/100 WBC (Bld) 19.0 % Normal 19-41 [facility] Comment on above: Performed By: #### L 500.2500, L100.0100 ####[facility] [address] [place], [address] MCH (RBC) [Entitic mass] 25.8 pg Low 27.0-32.0 [facility] Comment on above: Performed By: #### L 500.2500, L100.0100 ####[facility] [address] [place], [address] MCHC (RBC) [Mass/Vol] 31.3 g/dL Low 32-36 [facility] Comment on above: Performed By: #### L 500.2500, L100.0100 ####[facility] [address] [place], [address] MCV (RBC) [Entitic vol] 82.2 fL Normal 81-99 [facility] Comment on above: Performed By: #### L 500.2500, L100.0100 ####[facility] [address] [place], [address] Monocytes/100 WBC (Bld) 10.7 % High 0-10 [facility] Comment on above: Performed By: #### L 500.2500, L100.0100 ####[facility] [address] [place], [address] Neutrophils/100 WBC (Bld) 65.3 % Normal 47-70 [facility] Comment on above: Performed By: #### L 500.2500, L100.0100 ####[facility] [address] [place], [address] Nucleated RBC (Bld) [#/Vol] 0 10*3/uL Normal 0-5 [facility] Comment on above: Performed By: #### L 500.2500, L100.0100 ####[facility] [address] [place], [address] Platelet mean volume (Bld) [Entitic vol] 10.2 fL Normal 6.2-12.0 [facility] Comment on above: Performed By: #### L 500.2500, L100.0100 ####[facility] [address] [place], [address] Platelets (Bld) [#/Vol] 122 10*3/uL Low 150-450 [facility] Comment on above: Performed By: #### L 500.2500, L100.0100 ####[facility] [address] [place], [address] RBC (Bld) [#/Vol] 3.26 10*6/uL Low 4.2-5.4 [facility] Comment on above: Performed By: #### L 500.2500, L100.0100 ####[facility] [address] [place], [address] RDW SD 54.3 fl High 35.1-43.9 [facility] Comment on above: Performed By: #### L 500.2500, L100.0100 ####[facility] [address] [place], [address] WBC (Bld) [#/Vol] 6.9 10*3/uL Normal 4.4-11.0 [facility] Comment on above: Performed By: #### L 500.2500, L100.0100 ####[facility] [address] [place], [address] Basic Metabolic Profile (BMP )on 06-05-2025 BUN/CRE 13.2 RATIO Normal 10-20 [facility] Comment on above: Performed By: #### L 100.0100, L500.2500 ####[facility] [address] [place], [address] Calcium [Mass/Vol] 7.9 mg/dL Normal 7.6-11.0 [facility] Comment on above: Performed By: #### L 100.0100, L500.2500 ####[facility] [address] [place], [address] Chloride [Moles/Vol] 104 mmol/L Normal 98-108 [facility] Comment on above: Performed By: #### L 100.0100, L500.2500 ####[facility] [address] [place], [address] CO2 [Moles/Vol] 24.5 mmol/L Normal 21.0-32.0 [facility] Comment on above: Performed By: #### L 100.0100, L500.2500 ####[facility] [address] [place], [address] Creatinine [Mass/Vol] 1.00 mg/dL Normal 0.70-1.20 [facility] Comment on above: Performed By: #### L 100.0100, L500.2500 ####[facility] [address] [place], [address] ECRCL 38.84 ml/min Low 50-250 [facility] Comment on above: Performed By: #### L 100.0100, L500.2500 ####[facility] [address] [place], [address] GAP 11 Normal 5-15 [facility] Comment on above: Performed By: #### L 100.0100, L500.2500 ####[facility] [address] [place], [address] GFR/1.73 sq M.predicted among non-blacks MDRD (S/P/Bld) [Vol rate/Area] 61 mL/min/{1.73_m2} Normal >60 [facility] Comment on above: Result Comment: mL/m in/1.73m2 CKD-EPI Creatinine Equation (2020) Performed By: #### L 100.0100, L500.2500 ####[facility] [address] [place], [address] Glucose [Mass/Vol] 73 mg/dL Normal 70-99 [facility] Comment on above: Performed By: #### L 100.0100, L500.2500 ####[facility] [address] [place], [address] Potassium [Moles/Vol] 3.6 mmol/L Normal 3.3-5.1 [facility] Comment on above: Performed By: #### L 100.0100, L500.2500 ####[facility] [address] [place], [address] Sodium [Moles/Vol] 139 mmol/L Normal 133-145 [facility] Comment on above: Performed By: #### L 100.0100, L500.2500 ####[facility] [address] [place], [address] Urea nitrogen [Mass/Vol] 13 mg/dL Normal 4-19 [facility] Comment on above: Performed By: #### L 100.0100, L500.2500 ####[facility] [address] [place], [address] Blood manual differential co mment interpretation (narrative result)Ordered By: Roman Mckeon on 06-05-2025 Manual differential comment Jimy (Bld) [Interp] SCANNED [facility] CBC W/Diff, Automatedon 05-19 Absolute Lymph 0.64 X10 3/uL Low 0.83-4.51 [facility] Comment on above: Order Comment: Comme nts: collect 2hrs post 1u blood transfusion Performed By: #### L 100.0100 ####[facility] [address] [place], [address] Absolute Neut 4.9 X10 3/uL Normal 2.0-7.7 [facility] Comment on above: Order Comment: Comme nts: collect 2hrs post 1u blood transfusion Performed By: #### L 100.0100 ####[facility] [address] [place], [address] Basophils/100 WBC (Bld) 0.5 % Normal 0-1 [facility] Comment on above: Order Comment: Comme nts: collect 2hrs post 1u blood transfusion Performed By: #### L 100.0100 ####[facility] [address] [place], [address] Eosinophils/100 WBC (Bld) 2.4 % Normal 0-5 [facility] Comment on above: Order Comment: Comme nts: collect 2hrs post 1u blood transfusion Performed By: #### L 100.0100 ####[facility] [address] [place], [address] Erythrocyte distribution width (RBC) [Ratio] 17.5 % High 11.6-14.6 [facility] Comment on above: Order Comment: Comme nts: collect 2hrs post 1u blood transfusion Performed By: #### L 100.0100 ####[facility] [address] [place], [address] Hematocrit (Bld) [Volume fraction] 26.7 % Low 37-47 [facility] Comment on above: Order Comment: Comme nts: collect 2hrs post 1u blood transfusion Performed By: #### L 100.0100 ####[facility] [address] [place], [address] Hemoglobin (Bld) [Mass/Vol] 8.5 g/dL Low 12.0-15.0 [facility] Comment on above: Order Comment: Comme nts: collect 2hrs post 1u blood transfusion Performed By: #### L 100.0100 ####[facility] [address] [place], [address] IG% 0.300 Normal 0.0-0.9 [facility] Comment on above: Order Comment: Comme nts: collect 2hrs post 1u blood transfusion Result Comment: IG% - Immature Granulocytes (promyelocytes, myelocytes andmetamyelocytes) > 1% indicates that a LEFT SHIFT is Present. Performed By: #### L 100.0100 ####[facility] [address] [place], [address] Lymphocytes/100 WBC (Bld) 10.1 % Low 19-41 [facility] Comment on above: Order Comment: Comme nts: collect 2hrs post 1u blood transfusion Performed By: #### L 100.0100 ####[facility] [address] [place], [address] MCH (RBC) [Entitic mass] 26.4 pg Low 27.0-32.0 [facility] Comment on above: Order Comment: Comme nts: collect 2hrs post 1u blood transfusion Performed By: #### L 100.0100 ####[facility] [address] [place], [address] MCHC (RBC) [Mass/Vol] 31.8 g/dL Low 32-36 [facility] Comment on above: Order Comment: Comme nts: collect 2hrs post 1u blood transfusion Performed By: #### L 100.0100 ####[facility] [address] [place], [address] MCV (RBC) [Entitic vol] 82.9 fL Normal 81-99 [facility] Comment on above: Order Comment: Comme nts: collect 2hrs post 1u blood transfusion Performed By: #### L 100.0100 ####[facility] [address] [place], [address] Monocytes/100 WBC (Bld) 10.4 % High 0-10 [facility] Comment on above: Order Comment: Comme nts: collect 2hrs post 1u blood transfusion Performed By: #### L 100.0100 ####[facility] [address] [place], [address] Neutrophils/100 WBC (Bld) 76.3 % High 47-70 [facility] Comment on above: Order Comment: Comme nts: collect 2hrs post 1u blood transfusion Performed By: #### L 100.0100 ####[facility] [address] [place], [address] Nucleated RBC (Bld) [#/Vol] 0.5 10*3/uL Normal 0-5 [facility] Comment on above: Order Comment: Comme nts: collect 2hrs post 1u blood transfusion Performed By: #### L 100.0100 ####[facility] [address] [place], [address] Platelet mean volume (Bld) [Entitic vol] 9.8 fL Normal 6.2-12.0 [facility] Comment on above: Order Comment: Comme nts: collect 2hrs post 1u blood transfusion Performed By: #### L 100.0100 ####[facility] [address] [place], [address] Platelets (Bld) [#/Vol] 114 10*3/uL Low 150-450 [facility] Comment on above: Order Comment: Comme nts: collect 2hrs post 1u blood transfusion Performed By: #### L 100.0100 ####[facility] [address] [place], [address] RBC (Bld) [#/Vol] 3.22 10*6/uL Low 4.2-5.4 [facility] Comment on above: Order Comment: Comme nts: collect 2hrs post 1u blood transfusion Performed By: #### L 100.0100 ####[facility] [address] [place], [address] RDW SD 52.8 fl High 35.1-43.9 [facility] Comment on above: Order Comment: Comme nts: collect 2hrs post 1u blood transfusion Performed By: #### L 100.0100 ####[facility] [address] [place], [address] WBC (Bld) [#/Vol] 6.4 10*3/uL Normal 4.4-11.0 [facility] Comment on above: Order Comment: Comme nts: collect 2hrs post 1u blood transfusion Performed By: #### L 100.0100 ####[facility] [address] [place], [address] SMEAR COMMENT SCANNED Normal [facility] Comment on above: Performed By: #### L 100.0100, L500.2500 ####[facility] [address] [place], [address] EGD Reporton 06-05-2025 EGD Report Normal [facility] MR/POSTOP.ANEon 06-05-2025 MR/POSTOP.ANE Normal [facility] MR/LEBKHTBC3ha 06-05-2025 MR/POSTOPAN2 Normal [facility] Activated partial thrombopla stin time (aPTT) in platelet poor plasma by coagulation aOrdered By: Shyam Acharya on 06-04-2025 aPTT Coag (PPP) [Time] 29.9 s 24.1-36.2 [facility] Basic Metabolic Profile (BMP )on 06-04-2025 BUN/CRE 14.9 RATIO Normal 10-20 [facility] Comment on above: Performed By: #### L 501.5200, L501.2300, L500.2500, L100.0100 ####[facility] [address] [place], [address] Calcium [Mass/Vol] 7.5 mg/dL Low 7.6-11.0 [facility] Comment on above: Performed By: #### L 501.5200, L501.2300, L500.2500, L100.0100 ####[facility] [address] [place], [address] Chloride [Moles/Vol] 97 mmol/L Low 98-108 [facility] Comment on above: Performed By: #### L 501.5200, L501.2300, L500.2500, L100.0100 ####[facility] [address] [place], [address] CO2 [Moles/Vol] 26.9 mmol/L Normal 21.0-32.0 [facility] Comment on above: Performed By: #### L 501.5200, L501.2300, L500.2500, L100.0100 ####[facility] [address] [place], [address] Creatinine [Mass/Vol] 1.15 mg/dL Normal 0.70-1.20 [facility] Comment on above: Performed By: #### L 501.5200, L501.2300, L500.2500, L100.0100 ####[facility] [address] [place], [address] ECRCL 34.35 ml/min Low 50-250 [facility] Comment on above: Performed By: #### L 501.5200, L501.2300, L500.2500, L100.0100 ####[facility] [address] [place], [address] GAP 12 Normal 5-15 [facility] Comment on above: Performed By: #### L 501.5200, L501.2300, L500.2500, L100.0100 ####[facility] [address] [place], [address] GFR/1.73 sq M.predicted among non-blacks MDRD (S/P/Bld) [Vol rate/Area] 51 mL/min/{1.73_m2} Low >60 [facility] Comment on above: Result Comment: mL/m in/1.73m2 CKD-EPI Creatinine Equation (2020) Performed By: #### L 501.5200, L501.2300, L500.2500, L100.0100 ####[facility] [address] [place], [address] Glucose [Mass/Vol] 85 mg/dL Normal 70-99 [facility] Comment on above: Performed By: #### L 501.5200, L501.2300, L500.2500, L100.0100 ####[facility] [address] [place], [address] Potassium [Moles/Vol] 2.9 mmol/L Low 3.3-5.1 [facility] Comment on above: Performed By: #### L 501.5200, L501.2300, L500.2500, L100.0100 ####[facility] [address] [place], [address] Sodium [Moles/Vol] 136 mmol/L Normal 133-145 [facility] Comment on above: Performed By: #### L 501.5200, L501.2300, L500.2500, L100.0100 ####[facility] [address] [place], [address] Urea nitrogen [Mass/Vol] 17 mg/dL Normal 4-19 [facility] Comment on above: Performed By: #### L 501.5200, L501.2300, L500.2500, L100.0100 ####[facility] [address] [place], [address] CBC W/Diff, Automatedon 07- Absolute Lymph 1.13 X10 3/uL Normal 0.83-4.51 [facility] Comment on above: Performed By: #### L 501.5200, L501.2300, L500.2500, L100.0100 ####[facility] [address] [place], [address] Absolute Neut 5.5 X10 3/uL Normal 2.0-7.7 [facility] Comment on above: Performed By: #### L 501.5200, L501.2300, L500.2500, L100.0100 ####[facility] [address] [place], [address] Basophils/100 WBC (Bld) 0.5 % Normal 0-1 [facility] Comment on above: Performed By: #### L 501.5200, L501.2300, L500.2500, L100.0100 ####[facility] [address] [place], [address] Eosinophils/100 WBC (Bld) 3.1 % Normal 0-5 [facility] Comment on above: Performed By: #### L 501.5200, L501.2300, L500.2500, L100.0100 ####[facility] [address] [place], [address] Erythrocyte distribution width (RBC) [Ratio] 18.1 % High 11.6-14.6 [facility] Comment on above: Performed By: #### L 501.5200, L501.2300, L500.2500, L100.0100 ####[facility] [address] [place], [address] Hematocrit (Bld) [Volume fraction] 24.3 % Low 37-47 [facility] Comment on above: Performed By: #### L 501.5200, L501.2300, L500.2500, L100.0100 ####[facility] [address] [place], [address] Hemoglobin (Bld) [Mass/Vol] 7.6 g/dL Low 12.0-15.0 [facility] Comment on above: Performed By: #### L 501.5200, L501.2300, L500.2500, L100.0100 ####[facility] [address] [place], [address] IG% 0.600 Normal 0.0-0.9 [facility] Comment on above: Result Comment: IG% - Immature Granulocytes (promyelocytes, myelocytes andmetamyelocytes) > 1% indicates that a LEFT SHIFT is Present. Performed By: #### L 501.5200, L501.2300, L500.2500, L100.0100 ####[facility] [address] [place], [address] Lymphocytes/100 WBC (Bld) 14.1 % Low 19-41 [facility] Comment on above: Performed By: #### L 501.5200, L501.2300, L500.2500, L100.0100 ####[facility] [address] [place], [address] MCH (RBC) [Entitic mass] 24.8 pg Low 27.0-32.0 [facility] Comment on above: Performed By: #### L 501.5200, L501.2300, L500.2500, L100.0100 ####[facility] [address] [place], [address] MCHC (RBC) [Mass/Vol] 31.3 g/dL Low 32-36 [facility] Comment on above: Performed By: #### L 501.5200, L501.2300, L500.2500, L100.0100 ####[facility] [address] [place], [address] MCV (RBC) [Entitic vol] 79.2 fL Low 81-99 [facility] Comment on above: Performed By: #### L 501.5200, L501.2300, L500.2500, L100.0100 ####[facility] [address] [place], [address] Monocytes/100 WBC (Bld) 12.9 % High 0-10 [facility] Comment on above: Performed By: #### L 501.5200, L501.2300, L500.2500, L100.0100 ####[facility] [address] [place], [address] Neutrophils/100 WBC (Bld) 68.8 % Normal 47-70 [facility] Comment on above: Performed By: #### L 501.5200, L501.2300, L500.2500, L100.0100 ####[facility] [address] [place], [address] Nucleated RBC (Bld) [#/Vol] 2.0 10*3/uL Normal 0-5 [facility] Comment on above: Performed By: #### L 501.5200, L501.2300, L500.2500, L100.0100 ####[facility] [address] [place], [address] Platelet mean volume (Bld) [Entitic vol] 9.9 fL Normal 6.2-12.0 [facility] Comment on above: Performed By: #### L 501.5200, L501.2300, L500.2500, L100.0100 ####[facility] [address] [place], [address] Platelets (Bld) [#/Vol] 129 10*3/uL Low 150-450 [facility] Comment on above: Performed By: #### L 501.5200, L501.2300, L500.2500, L100.0100 ####[facility] [address] [place], [address] RBC (Bld) [#/Vol] 3.07 10*6/uL Low 4.2-5.4 [facility] Comment on above: Performed By: #### L 501.5200, L501.2300, L500.2500, L100.0100 ####[facility] [address] [place], [address] RDW SD 52.5 fl High 35.1-43.9 [facility] Comment on above: Performed By: #### L 501.5200, L501.2300, L500.2500, L100.0100 ####[facility] [address] [place], [address] WBC (Bld) [#/Vol] 8.0 10*3/uL Normal 4.4-11.0 [facility] Comment on above: Performed By: #### L 501.5200, L501.2300, L500.2500, L100.0100 ####[facility] [address] [place], [address] HH, Hemoglobin AND Hematocri ton 06-04-2025 Hematocrit (Bld) [Volume fraction] 23.1 % Low 37-47 [facility] Comment on above: Performed By: #### L 100.0600 ####[facility] [address] [place], [address] Hemoglobin (Bld) [Mass/Vol] 7.4 g/dL Low 12.0-15.0 [facility] Comment on above: Performed By: #### L 100.0600 ####[facility] [address] [place], [address] L509.6001on 06-04-2025 CORTISOL 13.10 ug/dL Normal 6.02-18.40 [facility] Comment on above: Performed By: #### L 509.6001 ####[facility] [address] [place], [address] Magnesiumon 06-04-2025 Magnesium [Mass/Vol] 1.6 mg/dL Normal 1.5-2.2 [facility] Comment on above: Performed By: #### L 501.5200, L501.2300, L500.2500, L100.0100 ####[facility] [address] [place], [address] Partial Thromboplast Timeon 06-04-2025 aPTT Coag (Bld) [Time] 29.9 s Normal 24.1-36.2 [facility] Comment on above: Performed By: #### L 300.4310, L300.3900 ####[facility] [address] [place], [address] Phosphoruson 06-04-2025 Phosphate [Mass/Vol] 3.7 mg/dL Normal 2.7-4.5 [facility] Comment on above: Performed By: #### L 501.5200, L501.2300, L500.2500, L100.0100 ####[facility] [address] [place], [address] Prothrombin Time w/INRon INR Coag (PPP) [Relative time] 1.2 {INR} Normal [facility] Comment on above: Performed By: #### L 300.4310, L300.3900 ####[facility] [address] [place], [address] PT Coag (PPP) [Time] 15.4 s High 11.7-14.9 [facility] Comment on above: Performed By: #### L 300.4310, L300.3900 ####[facility] [address] [place], [address] Prothrombin timeOrdered By: Shyam Acharya on 06-04-2025 PT Coag (PPP) [Time] 15.4 s High 11.7-14.9 [facility] Serum or plasma cortisol felicia surement (mass/volume)Ordered By: Roman Hewitt on 06-04-2025 Cortisol [Mass/Vol] 13.10 ug/dL 6.02-18.40 [facility] Absolute lymphocyte countOrd ered By: Yasmani Haynes on 06-03-2025 Lymphocytes Auto (Unsp spec) [#/Vol] 1.02 10*3/uL 0.83-4.51 [facility] Anion gap in Serum or Plasma Ordered By: Yasmani Haynes on 06-03-2025 Anion gap [Moles/Vol] 14 mmol/L 5- [facility] Automated lymphocyte count a s percentage of total leukocytesOrdered By: Yasmani Haynes on 06-03-2025 Lymphocytes/100 WBC Auto (Unsp spec) 13.4 % Low 19- [facility] BRCon 06-03-2025 RC Normal [facility] Comment on above: Result Comment: [id number] OP RC NOT [id number] OP RC TRANSFUSED 06/05/25 [id number] OP RC NOT AVAILABLE Performed By: #### B RC ####[facility] [address] [place], [place], [address] Result Comment: [id number] OP RC TRANSFUSED 06/03/25 [id number] OP RC TRANSFUSED 06/03/25 0711 Performed By: #### B RC, BTS, M100.7900 ####[facility] [address] [place], [address] BUN/creatinine ratioOrdered By: Yasmani Haynes on 06-03-2025 Urea nitrogen/Creatinine [Mass ratio] 21.6 mg/mg High 09-07 [facility] Basic Metabolic Profile (BMP )on 06-03-2025 BUN/CRE 21.6 RATIO High 09-07 [facility] Comment on above: Performed By: #### L 100.0100, L500.2500, L500.3400, L503.7505, L501.5200 ####[facility] [address] [place], [address] Calcium [Mass/Vol] 8.1 mg/dL Normal 7.6-11.0 [facility] Comment on above: Performed By: #### L 100.0100, L500.2500, L500.3400, L503.7505, L501.5200 ####[facility] [address] [place], [address] Chloride [Moles/Vol] 101 mmol/L Normal 98-108 [facility] Comment on above: Performed By: #### L 100.0100, L500.2500, L500.3400, L503.7505, L501.5200 ####[facility] [address] [place], [address] CO2 [Moles/Vol] 20.9 mmol/L Low 21.0-32.0 [facility] Comment on above: Performed By: #### L 100.0100, L500.2500, L500.3400, L503.7505, L501.5200 ####[facility] [address] [place], [address] Creatinine [Mass/Vol] 1.07 mg/dL Normal 0.70-1.20 [facility] Comment on above: Performed By: #### L 100.0100, L500.2500, L500.3400, L503.7505, L501.5200 ####[facility] [address] [place], [address] ECRCL 38.46 ml/min Low 50-250 [facility] Comment on above: Performed By: #### L 100.0100, L500.2500, L500.3400, L503.7505, L501.5200 ####[facility] [address] [place], [address] GAP 14 Normal 5-15 [facility] Comment on above: Performed By: #### L 100.0100, L500.2500, L500.3400, L503.7505, L501.5200 ####[facility] [address] [place], [address] GFR/1.73 sq M.predicted among non-blacks MDRD (S/P/Bld) [Vol rate/Area] 56 mL/min/{1.73_m2} Low >60 [facility] Comment on above: Result Comment: mL/m in/1.73m2 CKD-EPI Creatinine Equation (2020) Performed By: #### L 100.0100, L500.2500, L500.3400, L503.7505, L501.5200 ####[facility] [address] [place], [address] Glucose [Mass/Vol] 116 mg/dL High 70-99 [facility] Comment on above: Performed By: #### L 100.0100, L500.2500, L500.3400, L503.7505, L501.5200 ####[facility] [address] [place], [address] Potassium [Moles/Vol] 3.7 mmol/L Normal 3.3-5.1 [facility] Comment on above: Performed By: #### L 100.0100, L500.2500, L500.3400, L503.7505, L501.5200 ####[facility] [address] [place], [address] Sodium [Moles/Vol] 136 mmol/L Normal 133-145 [facility] Comment on above: Performed By: #### L 100.0100, L500.2500, L500.3400, L503.7505, L501.5200 ####[facility] [address] [place], [address] Urea nitrogen [Mass/Vol] 23 mg/dL High 4-19 [facility] Comment on above: Performed By: #### L 100.0100, L500.2500, L500.3400, L503.7505, L501.5200 ####[facility] [address] [place], [address] Basophil percentageOrdered B y: Yasmani Haynes on 06-03-2025 Basophils/100 WBC (Bld) 0.4 % 0-1 [facility] Bilirubin directOrdered By: Yasmani Haynes on 06-03-2025 Bilirubin.direct [Mass/Vol] 0.25 mg/dL 0.00-0.30 [facility] Bilirubin, totalOrdered By: Yasmani Haynes on 06-03-2025 Bilirubin [Mass/Vol] 0.47 mg/dL 0.00-1.30 [facility] Blood stomatocytes detection by light microscopyOrdered By: Yasmani Haynes on 06-03-2025 Stomatocytes LM Ql (Bld) 1+ [facility] CBC W/Diff, Automatedon 05-19 Anisocytosis Ql (Bld) RARE Normal [facility] Comment on above: Performed By: #### L 100.0100, L500.2500, L500.3400, L503.7505, L501.5200 ####[facility] [address] [place], [address] RED CELL MORPH N CYTIC Normal NORM C C [facility] Comment on above: Performed By: #### L 100.0100, L500.2500, L500.3400, L503.7505, L501.5200 ####[facility] [address] [place], [address] STOMATOCYTE 1+ Normal [facility] Comment on above: Performed By: #### L 100.0100, L500.2500, L500.3400, L503.7505, L501.5200 ####[facility] [address] [place], [address] Carbon dioxide, total [Moles /volume] in Central venous bloodOrdered By: Yasmani Haynes on 06-03-2025 CO2 [Moles/Vol] 20.9 mmol/L Low 21.0-32.0 [facility] Chest 1 View (Portable)on Chest 1 View (Portable) Normal [facility] Chloride assayOrdered By: Kari Haynes on 06-03-2025 Chloride [Moles/Vol] 101 mmol/L 98-108 [facility] Emergency Department Summary on 06-03-2025 Emergency Department Summary Normal [facility] Eosinophil percentageOrdered By: Yasmani Haynes on 06-03-2025 Eosinophils/100 WBC (Bld) 2.0 % 0-5 [facility] Erythrocyte distribution wid th ratioOrdered By: Yasmani Haynes on 06-03-2025 Erythrocyte distribution width (RBC) [Ratio] 20.2 % High 11.6-14.6 [facility] Erythrocyte distribution wid th standard deviationOrdered By: Yasmani Haynes on 06-03-2025 Erythrocyte distribution width (RBC) [Ratio] 58.9 fl High 35.1-43.9 [facility] Erythrocyte morphology asses smentOrdered By: Yasmani Haynes on 06-03-2025 RBC morphology finding Nom (Bld) N CYTIC NORMAL NORM C&C [facility] Glomerular filtration rate ( GFR) estimation/1.73 sq m using serum, plasma, or whole bOrdered By: Yasmani Haynes on 06-03-2025 GFR/1.73 sq M.predicted among non-blacks MDRD (S/P/Bld) [Vol rate/Area] 56 mL/min/{1.73_m2} Low >60 [facility] H AND P Exam - Hospitaliston 06-03-2025 H&P Exam - Hospitalist Normal [facility] HH, Hemoglobin AND Hematocr iton 06-03-2025 Hematocrit (Bld) [Volume fraction] 24.7 % Low 37-47 [facility] Comment on above: Order Comment: JOE BREWER) CALLED TO BE PUSHED UP DUE TO EARLIERCOLLECTION ON FIRST SHIFT Performed By: #### L 100.0600 ####[facility] [address] [place], [place], [id number] Hemoglobin (Bld) [Mass/Vol] 7.9 g/dL Low 12.0-15.0 [facility] Comment on above: Order Comment: JOE (CHELITA) CALLED TO BE PUSHED UP DUE TO EARLIERCOLLECTION ON FIRST SHIFT Performed By: #### L 100.0600 ####[facility] [address] [place], [address] HCT Normal [address] [place] [address] Comment on above: Result Comment: WAS DONE AT 1222 PER HIEDI NURSE CAN SKIP 1400 AND DO 2000ONE Performed By: #### L 100.0600 ####[facility] [address] [place], [address] HGB Normal 12.0-15.0 [facility] Comment on above: Result Comment: WAS DONE AT 1222 PER HIEDI NURSE CAN SKIP 1400 AND DO 2000ONE Performed By: #### L 100.0600 ####[facility] [address] [place], [address] Hematocrit (Bld) [Volume fraction] 25.2 % Low [address] Comment on above: Performed By: #### L 100.0600 ####[facility] [address] [place], [address] Hemoglobin (Bld) [Mass/Vol] 7.8 g/dL Low 12.0-15.0 [facility] Comment on above: Performed By: #### L 100.0600 ####[facility] [address] [place], [address] Hematocrit (Bld) [Volume fraction] 22.5 % Low [address] [place] [address] Comment on above: Result Comment: PER PT RN, CHELITA, PT WAS STILL RECEIVING BLOOD. OK TOCANCEL, SINCE RESULT WILL NOT BE ACCURATE. Performed By: #### L 100.0600 ####[facility] [address] [place], [address] Hemoglobin (Bld) [Mass/Vol] 7.0 g/dL Low 12.0-15.0 [facility] Comment on above: Result Comment: PER PT RN, CHELITA, PT WAS STILL RECEIVING BLOOD. OK TOCANCEL, SINCE RESULT WILL NOT BE ACCURATE. Performed By: #### L 100.0600 ####[facility] [address] [place], [address] Hematocrit Auto (Bld) [Volum e fraction]Ordered By: Yasmani Haynes on 06-03-2025 Hematocrit (Bld) [Volume fraction] 18.0 % Low 37-47 [facility] Hemoglobin measurementOrdere d By: Yasmanimedardo Haynes on 06-03-2025 Hemoglobin (Bld) [Mass/Vol] 5.2 g/dL Low 12.0-15.0 [facility] Immature granulocytes/100 WB C Auto (Bld)Ordered By: Yasmanimedardo Haynes on 06-03-2025 Immature granulocytes/100 WBC (Bld) 0.800 % 0.0-0.9 [facility] L503.7505on 06-03-2025 Natriuretic peptide B (Bld) [Mass/Vol] 6776 pg/mL High <=900 [facility] Comment on above: Result Comment: Hear t Failure Unlikely: < 300 pg/mLHeart Failure Likely< 50 Years: > 450 pg/mL50-75 Years: > 900 pg/mL>75 Years: > 1800 pg/mL Performed By: #### L 100.0100, L500.2500, L500.3400, L503.7505, L501.5200 ####[facility] [address] [place], [address] Liver Profileon 06-03-2025 Albumin [Mass/Vol] 3.7 g/dL Normal 3.4-4.8 [facility] Comment on above: Performed By: #### L 100.0100, L500.2500, L500.3400, L503.7505, L501.5200 ####[facility] [address] [place], [address] ALK PHOS 113 U/L High 35-104 [facility] Comment on above: Performed By: #### L 100.0100, L500.2500, L500.3400, L503.7505, L501.5200 ####[facility] [address] [place], [address] ALT [Catalytic activity/Vol] 95 U/L High <=34 [facility] Comment on above: Performed By: #### L 100.0100, L500.2500, L500.3400, L503.7505, L501.5200 ####[facility] [address] [place], [address] AST [Catalytic activity/Vol] 37 U/L High <=31 [facility] Comment on above: Performed By: #### L 100.0100, L500.2500, L500.3400, L503.7505, L501.5200 ####[facility] [address] [place], [address] Bilirubin [Mass/Vol] 0.47 mg/dL Normal 0.00-1.30 [facility] Comment on above: Performed By: #### L 100.0100, L500.2500, L500.3400, L503.7505, L501.5200 ####[facility] [address] [place], [address] Bilirubin.direct [Mass/Vol] 0.25 mg/dL Normal 0.00-0.30 [facility] Comment on above: Performed By: #### L 100.0100, L500.2500, L500.3400, L503.7505, L501.5200 ####[facility] [address] [place], [address] Globulin (S) [Mass/Vol] 2.0 g/dL Low 2.2-4.2 [facility] Comment on above: Performed By: #### L 100.0100, L500.2500, L500.3400, L503.7505, L501.5200 ####[facility] [address] [place], [address] T PROT 5.7 g/dL Low 5.9-8.4 [facility] Comment on above: Performed By: #### L 100.0100, L500.2500, L500.3400, L503.7505, L501.5200 ####[facility] [address] [place], [address] MCV (mean corpuscular volume ) determinationOrdered By: Yasmani Haynes on 06-03-2025 MCV (RBC) [Entitic vol] 78.9 fL Low 81-99 [facility] MR/CON.PCM.GIon 06-03-2025 MR/CON.PCM.GI Normal [facility] Magnesiumon 06-03-2025 Magnesium [Mass/Vol] 2.1 mg/dL Normal 1.5-2.2 [facility] Comment on above: Performed By: #### L 100.0100, L500.2500, L500.3400, L503.7505, L501.5200 ####[facility] [address] [place], [address] Magnesium measurement (mass/ volume)Ordered By: Yasmani Haynes on 06-03-2025 Magnesium (Unsp spec) [Mass/Vol] 2.1 mg/dL 1.5-2.2 [facility] Mean corpuscular hemoglobin (MCH) determinationOrdered By: Yasmani Haynes on 06-03-2025 MCH (RBC) [Entitic mass] 22.8 pg Low 27.0-32.0 [facility] Monocyte percentageOrdered B y: Yasmani Haynes on 06-03-2025 Monocytes/100 WBC (Bld) 14.0 % High 0-10 [facility] Natriuretic peptide.B prohor kristie N-Terminal [Mass/volume] in Serum or PlasmaOrdered By: Yasmani Haynes on 06-03-2025 Natriuretic peptide.B prohormone N-Terminal [Mass/Vol] 6776 pg/mL High <900 [facility] Neutrophil percentageOrdered By: Yasmani Haynes on 06-03-2025 Neutrophils/100 WBC (Bld) 69.4 % 47-70 [facility] No Panel InformationOrdered By: Yasmani Haynes on 06-03-2025 RARE [facility] 37 U/L High <32 [facility] Platelet countOrdered By: Kari Haynes on 06-03-2025 Platelets (Bld) [#/Vol] 181 10*3/uL 150-450 [facility] Potassium measurement (mass/ volume)Ordered By: Yasmani Haynes on 06-03-2025 Potassium (Unsp spec) [Mass/Vol] 3.7 mmol/L 3.3-5.1 [facility] RBC Auto (Bld) [#/Vol]Ordere d By: Yasmani Haynes on 06-03-2025 RBC (Bld) [#/Vol] 2.28 10*6/uL Low 4.2-5.4 [facility] Serum creatinine measurement (mass/volume)Ordered By: Yasmani Haynes on 06-03-2025 Creatinine [Mass/Vol] 1.07 mg/dL 0.70-1.20 [facility] Serum globulin measurementOr dered By: Yasmani Haynes on 06-03-2025 Globulin (S) [Mass/Vol] 2.0 g/dL Low 2.2-4.2 [facility] Serum glucose measurement (m ass/volume)Ordered By: Yasmani Haynes on 06-03-2025 Glucose [Mass/Vol] 116 mg/dL High 70-99 [facility] Serum or plasma alanine pizarro otransferase (ALT) measurementOrdered By: Yasmani Haynes on 06-03-2025 ALT [Catalytic activity/Vol] 95 U/L High <35 [facility] Serum or plasma albumin stefania urement (mass/volume)Ordered By: Yasmani Haynes on 06-03-2025 Albumin [Mass/Vol] 3.7 g/dL 3.4-4.8 [facility] Serum or plasma alkaline anthony sphatase measurementOrdered By: Yasmani Haynes on 06-03-2025 ALP [Catalytic activity/Vol] 113 U/L High 35-104 [facility] Serum or plasma calcium stefania urement (mass/volume)Ordered By: Yasmani Haynes on 06-03-2025 Calcium [Mass/Vol] 8.1 mg/dL 7.6-11.0 [facility] Serum or plasma urea nitroge n measurement (mass/volume)Ordered By: Yasmani Haynes on 06-03-2025 Urea nitrogen [Mass/Vol] 23 mg/dL High 4-19 [facility] Sodium levelOrdered By: Joce Haynes on 06-03-2025 Sodium [Moles/Vol] 136 mmol/L 133-145 [facility] Stool Occult Blood iFOBon STOB Normal [facility] Comment on above: Performed By: #### B KIKA, BTS, M100.5000 ####[facility] [address] [place], [address] Stool gastrointestinal hemog lobin detection by immunologic methodOrdered By: Yasmani Haynes on 06-03-2025 Lower GI hemoglobin IA Ql (Stl) [facility] Total proteinOrdered By: Ever Haynes on 06-03-2025 Protein [Mass/Vol] 5.7 g/dL Low 5.9-8.4 [facility] Type AND Screenon 06-03-2025 ABO and Rh group Nom (Bld) Blood group O Rh(D) positive Normal [facility] Comment on above: Order Comment: Has p t arrived? YCMV NEG? NNumber of units to transfuse: 2Is pt's Hgb is = to 7.0 mg/dl or Hct </= 21%? YReason for Ordering Blood: ChronicAre the blood/blood products to be transfused? YIs the patient having/had surgery? NWanna Caicedo Performed By: #### B KIKA, BTS, M100.7900 ####[facility] [address] [place], [place], [address] White blood cell (WBC) count Ordered By: Yasmani Haynes on 06-03-2025 WBC (Bld) [#/Vol] 7.6 10*3/uL 4.4-11.0 [facility] Brain without Contraston 07- 02-2025 Brain without Contrast Normal [facility] Magnetic resonance imaging r eportOrdered By: Tc Baum on 05-20-2025 Study report [facility] Work Phone: Emergency Department Summary on 05-19-2025 Emergency Department Summary Normal [facility] Thyroid Antibodieson 025 TG AB < 1.0 Normal 0.0-0.9 [facility] Comment on above: Result Comment: Thyr oglobulin Antibody measured by FeuerlabsMethodologyIt should be noted that the presence of thyroglobulinantibodies may not be pathogenic nor diagnostic, especiallyat very low levels. The assay wrecking mechanic has found thatfour percent of individuals without evidence of thyroiddisease or autoimmunity will have positive TgAb levels upto 4 IU/mL.Performed at: [facility] [address] [id number] Director: Damion Richards PhD, Phone: [phone] Performed By: #### L 503.0106, [id number], L506.0200 ####[facility] [address] [place], [place], [address] THYR PEROX AB < 9 Normal 0-34 [facility] Comment on above: Performed By: #### L 503.0106, L3300.6750, L506.0200 ####[facility] [address] [place], [place], [id number] Absolute lymphocyte countOrd ered By: Daron Benton on 05-15-2025 Lymphocytes Auto (Unsp spec) [#/Vol] 1.09 10*3/uL 0.83-4.51 [facility] Anion gap in Serum or Plasma Ordered By: Daron Benton on 05-15-2025 Anion gap [Moles/Vol] 11 mmol/L 5-15 [facility] Automated lymphocyte count a s percentage of total leukocytesOrdered By: Daron Benton on 05-15-2025 Lymphocytes/100 WBC Auto (Unsp spec) 13.0 % Low 19-41 [facility] BUN/creatinine ratioOrdered By: Daron Benton on 05-15-2025 Urea nitrogen/Creatinine [Mass ratio] 22.7 mg/mg High 10-20 [facility] Basophil percentageOrdered B y: Daron Benton on 05-15-2025 Basophils/100 WBC (Bld) 0.8 % 0-1 [facility] Bilirubin, totalOrdered By: Daron Benton on 05-15-2025 Bilirubin [Mass/Vol] 0.18 mg/dL 0.00-1.30 [facility] Blood manual differential co mment interpretation (narrative result)Ordered By: Daron Benton on 05-15-2025 Manual differential comment Jimy (Bld) [Interp] SCANNED [facility] Blood polychromasia detectio n by light microscopyOrdered By: Daron eBnton on 05-15-2025 Polychromasia LM Ql (Bld) 1+ [facility] CBC W/Diff, Automatedon 04-20 Anisocytosis Ql (Bld) 1+ Normal [facility] Comment on above: Order Comment: Order Date: 05/15/25Order Info: [id number] - CBCDOrder Info: [id number] - RETIC Performed By: #### L 503.6030, L100.0100, L100.9950, L506.0400, L501.92772, L500.4050, L501.9520, L503.6550 ####[facility] [address] [facility] [place], [place], [address] HYPOCHROMASIA 1+ Normal [facility] Comment on above: Order Comment: Order Date: 05/15/25Order Info: [id number] - CBCDOrder Info: [id number] - RETIC Performed By: #### L 503.6030, L100.0100, L100.9950, L506.0400, L501.71250, L500.4050, L501.9520, L503.6550 ####[facility] [address] [place], [place], [address] PLT EST ADEQUATE Normal ADEQ [facility] Comment on above: Order Comment: Order Date: 05/15/25Order Info: [id number] - CBCDOrder Info: [id number] - RETIC Performed By: #### L 503.6030, L100.0100, L100.9950, L506.0400, L501.35336, L500.4050, L501.9520, L503.6550 ####[facility] [address] [place], [address] POLYCHROMASIA 1+ Normal [facility] Comment on above: Order Comment: Order Date: 05/15/25Order Info: [id number] - CBCDOrder Info: [id number] - RETIC Performed By: #### L 503.6030, L100.0100, L100.9950, L506.0400, L501.27102, L500.4050, L501.9520, L503.6550 ####[facility] [address] [place], [address] SMEAR COMMENT SCANNED Normal [facility] Comment on above: Order Comment: Order Date: 05/15/25Order Info: [id number] - CBCDOrder Info: [id number] - RETIC Performed By: #### L 503.6030, L100.0100, L100.9950, L506.0400, L501.68802, L500.4050, L501.9520, L503.6550 ####[facility] [address] [place], [address] CTA Neck W/WO Contraston CTA Neck W/WO Contrast Normal [facility] Carbon dioxide, total [Moles /volume] in Central venous bloodOrdered By: Daron Benton on 05-15-2025 CO2 [Moles/Vol] 25.0 mmol/L 21.0-32.0 [facility] Chloride assayOrdered By: Sarah Benton on 05-15-2025 Chloride [Moles/Vol] 100 mmol/L 98-108 [facility] Comprehensive Metabolic Prof ilon 05-15-2025 Albumin [Mass/Vol] 3.9 g/dL Normal 3.4-4.8 [facility] Comment on above: Order Comment: Order Date: 05/15/25Order Info: [id number] - CMPOrder Info: [id number] - I4LQlqte Info: 3 - TSHOrder Info: - IBCOrder Info: [id number] - FEROrder Info: 8 - FOLSOrder Info: [id number] - T4F Performed By: #### L 503.6030, L100.0100, L100.9950, L506.0400, L501.97798, L500.4050, L501.9520, L503.6550 ####[facility] [address] [place], [place], [address] Albumin/Globulin [Mass ratio] 1.7 {ratio} Normal 0.9-2.4 [facility] Comment on above: Order Comment: Order Date: 05/15/25Order Info: [id number] - CMPOrder Info: 0 - [id number] Info: 3 - TSHOrder Info: - IBCOrder Info: [id number] - FEROrder Info: [id number] - FOLSOrder Info: 302-7 - T4F Performed By: #### L 503.6030, L100.0100, L100.9950, L506.0400, L501.33380, L500.4050, L501.9520, L503.6550 ####[facility] [address] [place], [place], [id number] ALK PHOS 102 U/L Normal 35-104 [facility] Comment on above: Order Comment: Order Date: 05/15/25Order Info: [id number] - CMPOrder Info: 3050-0 - Y8VQmkgh Info: 3 - TSHOrder Info: - IBCOrder Info: [id number] - FEROrder Info: 8 - FOLSOrder Info: [id number] - T4F Performed By: #### L 503.6030, L100.0100, L100.9950, L506.0400, L501.81037, L500.4050, L501.9520, L503.6550 ####[facility] [address] [place], [address] ALT [Catalytic activity/Vol] 14 U/L Normal <=34 [facility] Comment on above: Order Comment: Order Date: 05/15/25Order Info: 0786-1 - CMPOrder Info: 3051-0 - J2QZauaa Info: 3015-3 - TSHOrder Info: 91614-8 - IBCOrder Info: 2276-02 - FEROrder Info: 8 - FOLSOrder Info: 3024-7 - T4F Performed By: #### L 503.6030, L100.0100, L100.9950, L506.0400, L501.16511, L500.4050, L501.9520, L503.6550 ####[facility] [address] [place], [place], [phone](164) AST [Catalytic activity/Vol] 23 U/L Normal <=31 [facility] Comment on above: Order Comment: Order Date: 05/15/25Order Info: 0786-1 - CMPOrder Info: 3051-0 - N4EChjow Info: 3015-3 - TSHOrder Info: 30106-6 - IBCOrder Info: 2276-02 - FEROrder Info: 8 - FOLSOrder Info: 302-7 - T4F Performed By: #### L 503.6030, L100.0100, L100.9950, L506.0400, L501.71039, L500.4050, L501.9520, L503.6550 ####[facility] [address] [place], [address] Bilirubin [Mass/Vol] 0.18 mg/dL Normal 0.00-1.30 [facility] Comment on above: Order Comment: Order Date: 05/15/25Order Info: 0786-1 - CMPOrder Info: 3051-0 - A5ELbypl Info: 3015-3 - TSHOrder Info: 03171-7 - IBCOrder Info: 2276-02 - FEROrder Info: 2284-06 - FOLSOrder Info: 3024-7 - T4F Performed By: #### L 503.6030, L100.0100, L100.9950, L506.0400, L501.45168, L500.4050, L501.9520, L503.6550 ####[facility] [address] [place], [address] BUN/CRE 22.7 RATIO High 10-20 [facility] Comment on above: Order Comment: Order Date: 05/15/25Order Info: 07-1 - CMPOrder Info: 0 - Z7UIdzar Info: 3 - TSHOrder Info: - IBCOrder Info: 2276-02 - FEROrder Info: 2284-06 - FOLSOrder Info: 7 - T4F Performed By: #### L 503.6030, L100.0100, L100.9950, L506.0400, L501.75845, L500.4050, L501.9520, L503.6550 ####[facility] [address] [place], [address] Calcium [Mass/Vol] 9.1 mg/dL Normal 7.6-11.0 [facility] Comment on above: Order Comment: Order Date: 05/15/25Order Info: 0786-1 - CMPOrder Info: 0 - I1GDdbqd Info: 3 - TSHOrder Info: - IBCOrder Info: 2276-02 - FEROrder Info: 2284-06 - FOLSOrder Info: 3027 - T4F Performed By: #### L 503.6030, L100.0100, L100.9950, L506.0400, L501.36080, L500.4050, L501.9520, L503.6550 ####[facility] [address] [place], [address] Chloride [Moles/Vol] 100 mmol/L Normal 98-108 [facility] Comment on above: Order Comment: Order Date: 05/15/25Order Info: 0786-1 - CMPOrder Info: 3051-0 - I6JFupqo Info: 3016-3 - TSHOrder Info: 77006-9 - IBCOrder Info: 2275-4 - FEROrder Info: 8 - FOLSOrder Info: 3024-7 - T4F Performed By: #### L 503.6030, L100.0100, L100.9950, L506.0400, L501.50625, L500.4050, L501.9520, L503.6550 ####[facility] [address] [place], [place], [id number] CO2 [Moles/Vol] 25.0 mmol/L Normal 21.0-32.0 [facility] Comment on above: Order Comment: Order Date: 05/15/25Order Info: 0786-1 - CMPOrder Info: 3051-0 - D9FTnohb Info: 6-3 - TSHOrder Info: 54877-9 - IBCOrder Info: 2276-02 - FEROrder Info: 2284-06 - FOLSOrder Info: 3024-7 - T4F Performed By: #### L 503.6030, L100.0100, L100.9950, L506.0400, L501.82316, L500.4050, L501.9520, L503.6550 ####[facility] [address] [place], [place], [address] Creatinine [Mass/Vol] 1.13 mg/dL Normal 0.70-1.20 [facility] Comment on above: Order Comment: Order Date: 05/15/25Order Info: 0786-1 - CMPOrder Info: 3051-0 - Z5PJoqpg Info: 3016-3 - TSHOrder Info: 39262-6 - IBCOrder Info: 2275- - FEROrder Info: 8 - FOLSOrder Info: 3024-7 - T4F Performed By: #### L 503.6030, L100.0100, L100.9950, L506.0400, L501.98420, L500.4050, L501.9520, L503.6550 ####[facility] [address] [place], [address] GAP 11 Normal 5-15 [facility] Comment on above: Order Comment: Order Date: 05/15/25Order Info: 0786-1 - CMPOrder Info: 0 - D7TJbses Info: 3016-01 - TSHOrder Info: 20881-0 - IBCOrder Info: 2276-02 - FEROrder Info: 2284-06 - FOLSOrder Info: 3024-05 - T4F Performed By: #### L 503.6030, L100.0100, L100.9950, L506.0400, L501.75014, L500.4050, L501.9520, L503.6550 ####[facility] [address] [place], [place], [phone] GFR/1.73 sq M.predicted among non-blacks MDRD (S/P/Bld) [Vol rate/Area] 52 mL/min/{1.73_m2} Low >60 [facility] Comment on above: Order Comment: Order Date: 05/15/25Order Info: 0786-1 - CMPOrder Info: 0 - P6ULxpok Info: 3016-01 - TSHOrder Info: 94352-3 - IBCOrder Info: 2276-02 - FEROrder Info: 2284-06 - FOLSOrder Info: 3024-05 - T4F Result Comment: mL/m in/1.73m2 CKD-EPI Creatinine Equation (2020) Performed By: #### L 503.6030, L100.0100, L100.9950, L506.0400, L501.12911, L500.4050, L501.9520, L503.6550 ####[facility] [address] [place], [place], [address](755) Globulin (S) [Mass/Vol] 2.3 g/dL Normal 2.2-4.2 [facility] Comment on above: Order Comment: Order Date: 05/15/25Order Info: 0786-1 - CMPOrder Info: 3051-0 - U5TRpisv Info: 3016-3 - TSHOrder Info: 20042-9 - IBCOrder Info: 2275-4 - FEROrder Info: 2284-06 - FOLSOrder Info: 3024-7 - T4F Performed By: #### L 503.6030, L100.0100, L100.9950, L506.0400, L501.67496, L500.4050, L501.9520, L503.6550 ####[facility] [address] [place], [place], [address] Glucose [Mass/Vol] 105 mg/dL High 70-99 [facility] Comment on above: Order Comment: Order Date: 05/15/25Order Info: 07 - CMPOrder Info: 0 - P5MRwhnt Info: 3 - TSHOrder Info: 48142-3 - IBCOrder Info: 2276-02 - FEROrder Info: 2284-06 - FOLSOrder Info: 3023-7 - T4F Performed By: #### L 503.6030, L100.0100, L100.9950, L506.0400, L501.19961, L500.4050, L501.9520, L503.6550 ####[facility] [address] [place], [place], [address] Potassium [Moles/Vol] 4.5 mmol/L Normal 3.3-5.1 [facility] Comment on above: Order Comment: Order Date: 05/15/25Order Info: 07-1 - CMPOrder Info: 1-0 - J6MZydwq Info: 63 - TSHOrder Info: 08774-9 - IBCOrder Info: 2276-02 - FEROrder Info: 2284-06 - FOLSOrder Info: 3024-7 - T4F Performed By: #### L 503.6030, L100.0100, L100.9950, L506.0400, L501.98478, L500.4050, L501.9520, L503.6550 ####[facility] [address] [place], [address] Sodium [Moles/Vol] 136 mmol/L Normal 133-145 [facility] Comment on above: Order Comment: Order Date: 05/15/25Order Info: 0786-1 - CMPOrder Info: 0 - X2CHwmkr Info: 3 - TSHOrder Info: 79864-8 - IBCOrder Info: 2276-02 - FEROrder Info: 2284-06 - FOLSOrder Info: 3023-7 - T4F Performed By: #### L 503.6030, L100.0100, L100.9950, L506.0400, L501.59876, L500.4050, L501.9520, L503.6550 ####[facility] [address] [place], [address] T PROT 6.2 g/dL Normal 5.9-8.4 [facility] Comment on above: Order Comment: Order Date: 05/15/25Order Info: 0786-1 - CMPOrder Info: 0 - T4GBjhtb Info: 3 - TSHOrder Info: 94126-8 - IBCOrder Info: 2276-02 - FEROrder Info: 2284-06 - FOLSOrder Info: 3023-7 - T4F Performed By: #### L 503.6030, L100.0100, L100.9950, L506.0400, L501.08667, L500.4050, L501.9520, L503.6550 ####[facility] [address] [place], [address] Urea nitrogen [Mass/Vol] 26 mg/dL High 4-19 [facility] Comment on above: Order Comment: Order Date: 05/15/25Order Info: 0786-1 - CMPOrder Info: 0 - C5IKedqb Info: 3 - TSHOrder Info: 60032-8 - IBCOrder Info: 2276-02 - FEROrder Info: 2284-06 - FOLSOrder Info: 3024-05 - T4F Performed By: #### L 503.6030, L100.0100, L100.9950, L506.0400, L501.26293, L500.4050, L501.9520, L503.6550 ####[facility] [address] [place], [place], [address] Eosinophil percentageOrdered By: Daron Benton on 05-15-2025 Eosinophils/100 WBC (Bld) 9.3 % High 0-5 [facility] Erythrocyte distribution wid th ratioOrdered By: Daron Benton on 05-15-2025 Erythrocyte distribution width (RBC) [Ratio] 19.3 % High 11.6-14.6 [facility] Erythrocyte distribution wid th standard deviationOrdered By: Daron Benton on 05-15-2025 Erythrocyte distribution width (RBC) [Ratio] 61.2 fl High 35.1-43.9 [facility] Ferritinon 05-15-2025 Ferritin [Mass/Vol] 19 ng/mL Low 22-378 [facility] Comment on above: Order Comment: Order Date: 05/15/25Order Info: 0786-1 - CMPOrder Info: 0 - W2SEqnat Info: 3 - TSHOrder Info: 30022-5 - IBCOrder Info: 2276-02 - FEROrder Info: 2284-06 - FOLSOrder Info: 3024-05 - T4F Performed By: #### L 503.6030, L100.0100, L100.9950, L506.0400, L501.13171, L500.4050, L501.9520, L503.6550 ####[facility] [address] [place], [place], [address] Folate [Moles/volume] in Ser um or PlasmaOrdered By: Daron Benton on 05-15-2025 Folate [Moles/Vol] 8.24 ng/mL 4.60-34.80 [facility] Folates,Serum (Folic Acid)on 05-15-2025 FOLATES,SERUM 8.24 ng/mL Normal 4.60-34.80 [facility] Comment on above: Order Comment: N Performed By: #### L 503.0106, L3300.6750, L506.0200 ####[facility] [address] [place], [place], [phone] Free T3on 05-15-2025 Free T3 [Mass/Vol] 2.7 pg/mL Normal 2.18-3.98 [facility] Comment on above: Order Comment: Order Date: 05/15/25Order Info: 0786-1 - CMPOrder Info: 3051-0 - R1ISakof Info: 3016-3 - TSHOrder Info: 56377-3 - IBCOrder Info: 2276-4 - FEROrder Info: 2284-8 - FOLSOrder Info: 3024-7 - T4F Performed By: #### L 503.6030, L100.0100, L100.9950, L506.0400, L501.26733, L500.4050, L501.9520, L503.6550 ####[facility] [address] [place], [place], [phone] Free V6Ldirxpm By: Daron swanson on 05-15-2025 Free T3 [Mass/Vol] 2.7 pg/mL 2.18-3.98 [facility] Glomerular filtration rate ( GFR) estimation/1.73 sq m using serum, plasma, or whole bOrdered By: Daron Benton on 05-15-2025 GFR/1.73 sq M.predicted among non-blacks MDRD (S/P/Bld) [Vol rate/Area] 52 mL/min/{1.73_m2} Low >60 [facility] Hematocrit Auto (Bld) [Volum e fraction]Ordered By: Daron Benton on 05-15-2025 Hematocrit (Bld) [Volume fraction] 24.4 % Low 37-47 [facility] Hemoglobin measurementOrdere d By: Daron Benton on 05-15-2025 Hemoglobin (Bld) [Mass/Vol] 7.4 g/dL Low 12.0-15.0 [facility] Hypochromatic red blood cell detectionOrdered By: Daron Benton on 05-15-2025 Hypochromia Ql (Bld) 1+ [facility] Immature granulocytes/100 WB C Auto (Bld)Ordered By: Daron Benton on 05-15-2025 Immature granulocytes/100 WBC (Bld) 0.600 % 0.0-0.9 [facility] Iron measurement (mass/mass) Ordered By: Daron Benton on 05-15-2025 Iron (Unsp spec) [Mass/Mass] 48 ug/dL Low 50-170 [facility] Iron+Iron Binding Capacityon 05-15-2025 Iron [Mass/Vol] 48 ug/dL Low 50-170 [facility] Comment on above: Order Comment: Order Date: 05/15/25Order Info: 0786-1 - CMPOrder Info: 3050 - H1TAomlo Info: 3 - TSHOrder Info: 78968-1 - IBCOrder Info: 2276-02 - FEROrder Info: 2284-06 - FOLSOrder Info: 7 - T4F Performed By: #### L 503.6030, L100.0100, L100.9950, L506.0400, L501.95271, L500.4050, L501.9520, L503.6550 ####[facility] [address] [place], [place], [phone] IRON SATURATION 13.0 Normal 13-59 [facility] Comment on above: Order Comment: Order Date: 05/15/25Order Info: 0786-1 - CMPOrder Info: 3051-0 - J5SMmfqk Info: 3015-3 - TSHOrder Info: 18956-4 - IBCOrder Info: 2276-02 - FEROrder Info: 8 - FOLSOrder Info: 3024-7 - T4F Performed By: #### L 503.6030, L100.0100, L100.9950, L506.0400, L501.42513, L500.4050, L501.9520, L503.6550 ####[facility] [address] [place], [address] TIBC 379 ug/dL Normal 250-450 [facility] Comment on above: Order Comment: Order Date: 05/15/25Order Info: 0786-1 - CMPOrder Info: 3051-0 - X8KRbevb Info: 3015-3 - TSHOrder Info: - IBCOrder Info: 2276-02 - FEROrder Info: 2284-06 - FOLSOrder Info: 3024-7 - T4F Performed By: #### L 503.6030, L100.0100, L100.9950, L506.0400, L501.25051, L500.4050, L501.9520, L503.6550 ####[facility] [address] [place], [address] UIBC 331 ug/dL Normal 228-428 [facility] Comment on above: Order Comment: Order Date: 05/15/25Order Info: 071 - CMPOrder Info: 3050-0 - T1DPqmzx Info: 3 - TSHOrder Info: - IBCOrder Info: 2276-02 - FEROrder Info: 2284-06 - FOLSOrder Info: 3024-7 - T4F Performed By: #### L 503.6030, L100.0100, L100.9950, L506.0400, L501.59689, L500.4050, L501.9520, L503.6550 ####[facility] [address] [place], [address] MCV (mean corpuscular volume ) determinationOrdered By: Daron Benton on 05-15-2025 MCV (RBC) [Entitic vol] 87.5 fL 81-99 [facility] Mean corpuscular hemoglobin (MCH) determinationOrdered By: Daron Benton on 05-15-2025 MCH (RBC) [Entitic mass] 26.5 pg Low 27.0-32.0 [facility] Monocyte percentageOrdered B y: Daron Benton on 05-15-2025 Monocytes/100 WBC (Bld) 5.9 % 0-10 [facility] Neutrophil percentageOrdered By: Daron Benton on 05-15-2025 Neutrophils/100 WBC (Bld) 70.4 % High 47-70 [facility] No Panel InformationOrdered By: Daronchandler Benton on 05-15-2025 1+ [facility] 23 U/L <32 [facility] 331 ug/dL 228-428 [facility] Platelet countOrdered By: Sarah Benton on 05-15-2025 Platelets (Bld) [#/Vol] 213 10*3/uL 150-450 [facility] Platelet estimateOrdered By: Daron Benton on 05-15-2025 Platelets LM Ql (Bld) ADEQUATE ADEQ [facility] Potassium measurement (mass/ volume)Ordered By: Daron Benton on 05-15-2025 Potassium (Unsp spec) [Mass/Vol] 4.5 mmol/L 3.3-5.1 [facility] RBC Auto (Bld) [#/Vol]Ordere d By: Daron Benton on 05-15-2025 RBC (Bld) [#/Vol] 2.79 10*6/uL Low 4.2-5.4 [facility] Retic Panelon 05-15-2025 IM RET FRACTION 25.70 High 3.00-15.90 [facility] Comment on above: Order Comment: Order Date: 05/15/25Order Info: 0184-1 - CBCDOrder Info: 4679-7 - RETIC Performed By: #### L 503.6030, L100.0100, L100.9950, L506.0400, L501.34898, L500.4050, L501.9520, L503.6550 ####[facility] [address] [place], [address] RET-HE 25.2 pg Low 30-35 [facility] Comment on above: Order Comment: Order Date: 05/15/25Order Info: 0184-1 - CBCDOrder Info: 4679-7 - RETIC Performed By: #### L 503.6030, L100.0100, L100.9950, L506.0400, L501.65872, L500.4050, L501.9520, L503.6550 ####[facility] [address] [place], [place], [address] Retic Count 4.47 High 0.5-1.5 [facility] Comment on above: Order Comment: Order Date: 05/15/25Order Info: 0184-1 - CBCDOrder Info: 4679-7 - RETIC Performed By: #### L 503.6030, L100.0100, L100.9950, L506.0400, L501.26457, L500.4050, L501.9520, L503.6550 ####[facility] [address] [place], [place], [address] Reticulocyte hemoglobin equi valent (RET-He) measurementOrdered By: Daron Benton on 05-15-2025 Hemoglobin (Reticulocytes) [Entitic mass] 25.2 pg Low 30-35 [facility] Reticulocytes Auto (Bld) [#/ Vol]Ordered By: Daron Benton on 05-15-2025 Reticulocytes/100 RBC (Bld) 4.47 % High 0.5-1.5 [facility] Serum creatinine measurement (mass/volume)Ordered By: Daron Benton on 05-15-2025 Creatinine [Mass/Vol] 1.13 mg/dL 0.70-1.20 [facility] Serum globulin measurementOr dered By: Daron Benton on 05-15-2025 Globulin (S) [Mass/Vol] 2.3 g/dL 2.2-4.2 [facility] Serum glucose measurement (m ass/volume)Ordered By: Daron Benton on 05-15-2025 Glucose [Mass/Vol] 105 mg/dL High 70-99 [facility] Serum or plasma alanine pizarro otransferase (ALT) measurementOrdered By: Daron Benton on 05-15-2025 ALT [Catalytic activity/Vol] 14 U/L <35 [facility] Serum or plasma albumin stefania urement (mass/volume)Ordered By: Daron Benton on 05-15-2025 Albumin [Mass/Vol] 3.9 g/dL 3.4-4.8 [facility] Serum or plasma albumin/glob ulin mass ratioOrdered By: Daron Benton on 05-15-2025 Albumin/Globulin [Mass ratio] 1.7 {ratio} 0.9-2.4 [facility] Serum or plasma alkaline anthony sphatase measurementOrdered By: Daron Benton on 05-15-2025 ALP [Catalytic activity/Vol] 102 U/L 35-104 [facility] Serum or plasma calcium stefania urement (mass/volume)Ordered By: Daron Benton on 05-15-2025 Calcium [Mass/Vol] 9.1 mg/dL 7.6-11.0 [facility] Serum or plasma ferritin felicia surement (mass/volume)Ordered By: Daron Benton on 05-15-2025 Ferritin [Mass/Vol] 19 ng/mL Low 22-378 [facility] Serum or plasma iron saturat ion measurement (mass fraction)Ordered By: Daron Benton on 05-15-2025 Iron saturation [Mass fraction] 13.0 % 13-59 [facility] Serum or plasma thyroperoxid ase antibody assay (units/volume)Ordered By: Daron Benton on 05-15-2025 TPO Ab Qn [IU]/mL 0-34 [facility] Serum or plasma urea nitroge n measurement (mass/volume)Ordered By: Daron Benton on 05-15-2025 Urea nitrogen [Mass/Vol] 26 mg/dL High 4-19 [facility] Sodium levelOrdered By: Daron Benton on 05-15-2025 Sodium [Moles/Vol] 136 mmol/L 133-145 [facility] T4 Free Directon 05-15-2025 T4 FREE DIRECT 1.50 ng/dL High 0.76-1.46 [facility] Comment on above: Order Comment: Order Date: 05/15/25Order Info: 0786-1 - CMPOrder Info: 3051-0 - Q3CFtmqg Info: 3016-3 - TSHOrder Info: 99035-0 - IBCOrder Info: 2276-4 - FEROrder Info: 2284-8 - FOLSOrder Info: 3024-7 - T4F Performed By: #### L 503.6030, L100.0100, L100.9950, L506.0400, L501.45074, L500.4050, L501.9520, L503.6550 ####[facility] [address] [place], [place], [phone] T4 freeOrdered By: Daron swanson on 05-15-2025 Free T4 [Mass/Vol] 1.50 ng/dL High 0.76-1.46 [facility] TSH DL <= 0.005 mIU/L QnOrde red By: Daron Benton on 05-15-2025 TSH Qn 1.680 uIU/mL 0.300-4.20 0 [facility] Thyroid Stim Hormone (TSH)on 05-15-2025 TSH 1.680 uIU/mL Normal 0.300-4.20 0 [facility] Comment on above: Order Comment: Order Date: 05/15/25Order Info: 0786-1 - CMPOrder Info: 3051-0 - L2YXacbo Info: 3016-3 - TSHOrder Info: 10305-4 - IBCOrder Info: 2276-4 - FEROrder Info: 2284-8 - FOLSOrder Info: 3024-7 - T4F Performed By: #### L 503.6030, L100.0100, L100.9950, L506.0400, L501.58881, L500.4050, L501.9520, L503.6550 ####[facility] [address] [place], [place], [address] Total proteinOrdered By: Nila Benton on 05-15-2025 Protein [Mass/Vol] 6.2 g/dL 5.9-8.4 [facility] Vitamin B12on 05-15-2025 Cobalamin (Vitamin B12) [Mass/Vol] 366 pg/mL Normal 180-914 [facility] Comment on above: Order Comment: Order Date: 05/15/25Order Info: 0786-1 - CMPOrder Info: 3051-0 - M9QFgykt Info: 3016-3 - TSHOrder Info: 73277-0 - IBCOrder Info: 2276-4 - FEROrder Info: 2284-8 - FOLSOrder Info: 3024-7 - T4F Performed By: #### L 503.0106, L3300.6750, L506.0200 ####[facility] [address] [place], [address] Vitamin B12 ser/plasOrdered By: Daron Benton on 05-15-2025 Cobalamin (Vitamin B12) [Mass/Vol] 366 pg/mL 180-914 [facility] White blood cell (WBC) count Ordered By: Daron Benton on 05-15-2025 WBC (Bld) [#/Vol] 8.4 10*3/uL 4.4-11.0 [facility] 36on 05-06-2025 36 Faxed New Auth to [facility] @ [phone], Valid 05/06/25 Thru 07/05/25 Brain MRI wo Contrast. Normal [facility] Gastroenterology Visit Repor ton 05-06-2025 Gastroenterology Visit Report Normal [facility] 36on 05-05-2025 36 [facility] number: [phone] Relationship to Patient: Imaging Provider: Robert Practice: neuro Chief Complaint/Reason for Call: Viki states patients prior auth is expiring and will need a new one for patient schedule MRI on 05/20 @130 fax # [phone]. [facility] 36on 04-24-2025 36 Baclofen 20mg sent t o [facility] in [place]. [facility] 36 Name of caller: Parvez santos Contact phone number: [phone] Relationship to Patient: patient Provider: AURORA Lynn Practice: Neurology Chief Complaint/Reason for Call: Angélica advised that she just got out of the hospital, and she needs her Baclofen script sent in to her [facility] [address] [place] [address], [place] - [address] [[id number]]. She does not use the [facility] any longer, and she is completely out. Best time of day caller can be reached: any Patient advised that office/PCP has 24-48 business hours to return their call: Yes Normal [facility] Anion gap in Serum or Plasma Ordered By: Roman Mckeon on 04-22-2025 Anion gap [Moles/Vol] 12 mmol/L 5-15 [facility] BUN/creatinine ratioOrdered By: Roman Mckeon on 04-22-2025 Urea nitrogen/Creatinine [Mass ratio] 7.0 mg/mg Low 10-20 [facility] Basic Metabolic Profile (BMP )on 04-22-2025 BUN/CRE 7.0 RATIO Low 10-20 [facility] Comment on above: Performed By: #### L 500.2500, L100.0500 ####[facility] [address] [place], [address] Calcium [Mass/Vol] 8.3 mg/dL Normal 7.6-11.0 [facility] Comment on above: Performed By: #### L 500.2500, L100.0500 ####[facility] [address] [place], [address] Chloride [Moles/Vol] 107 mmol/L Normal 98-108 [facility] Comment on above: Performed By: #### L 500.2500, L100.0500 ####[facility] [address] [place], [address] CO2 [Moles/Vol] 18.8 mmol/L Low 21.0-32.0 [facility] Comment on above: Performed By: #### L 500.2500, L100.0500 ####[facility] [address] [place], [address] Creatinine [Mass/Vol] 1.08 mg/dL Normal 0.70-1.20 [facility] Comment on above: Performed By: #### L 500.2500, L100.0500 ####[facility] [address] [place], [address] ECRCL 34.97 ml/min Low 50-250 [facility] Comment on above: Performed By: #### L 500.2500, L100.0500 ####[facility] [address] [place], [address] GAP 12 Normal 5-15 [facility] Comment on above: Performed By: #### L 500.2500, L100.0500 ####[facility] [address] [place], [address] GFR/1.73 sq M.predicted among non-blacks MDRD (S/P/Bld) [Vol rate/Area] 55 mL/min/{1.73_m2} Low >60 [facility] Comment on above: Result Comment: mL/m in/1.73m2 CKD-EPI Creatinine Equation (2020) Performed By: #### L 500.2500, L100.0500 ####[facility] [address] [place], [address] Glucose [Mass/Vol] 89 mg/dL Normal 70-99 [facility] Comment on above: Performed By: #### L 500.2500, L100.0500 ####[facility] [address] [place], [address] Potassium [Moles/Vol] 3.8 mmol/L Normal 3.3-5.1 [facility] Comment on above: Performed By: #### L 500.2500, L100.0500 ####[facility] [address] [place], [address] Sodium [Moles/Vol] 137 mmol/L Normal 133-145 [facility] Comment on above: Performed By: #### L 500.2500, L100.0500 ####[facility] [address] [place], [address] Urea nitrogen [Mass/Vol] 8 mg/dL Normal 4-19 [facility] Comment on above: Performed By: #### L 500.2500, L100.0500 ####[facility] [address] [place], [address] CBC-Complete Blood Cnt No Di ffon 04-22-2025 Erythrocyte distribution width (RBC) [Ratio] 17.5 % High 11.6-14.6 [facility] Comment on above: Performed By: #### L 500.2500, L100.0500 ####[facility] [address] [place], [address] Hematocrit (Bld) [Volume fraction] 29.2 % Low 37-47 [facility] Comment on above: Performed By: #### L 500.2500, L100.0500 ####[facility] [address] [place], [address] Hemoglobin (Bld) [Mass/Vol] 9.4 g/dL Low 12.0-15.0 [facility] Comment on above: Performed By: #### L 500.2500, L100.0500 ####[facility] [address] [place], [address] MCH (RBC) [Entitic mass] 26.8 pg Low 27.0-32.0 [facility] Comment on above: Performed By: #### L 500.2500, L100.0500 ####[facility] [address] [place], [address] MCHC (RBC) [Mass/Vol] 32.2 g/dL Normal 32-36 [facility] Comment on above: Performed By: #### L 500.2500, L100.0500 ####[facility] [address] [place], [address] MCV (RBC) [Entitic vol] 83.2 fL Normal 81-99 [facility] Comment on above: Performed By: #### L 500.2500, L100.0500 ####[facility] [address] [place], [address] Platelet mean volume (Bld) [Entitic vol] 9.7 fL Normal 6.2-12.0 [facility] Comment on above: Performed By: #### L 500.2500, L100.0500 ####[facility] [address] [place], [address] Platelets (Bld) [#/Vol] 152 10*3/uL Normal 150-450 [facility] Comment on above: Performed By: #### L 500.2500, L100.0500 ####[facility] [address] [place], [address] RBC (Bld) [#/Vol] 3.51 10*6/uL Low 4.2-5.4 [facility] Comment on above: Performed By: #### L 500.2500, L100.0500 ####[facility] [address] [place], [address] RDW SD 52.6 fl High 35.1-43.9 [facility] Comment on above: Performed By: #### L 500.2500, L100.0500 ####[facility] [address] [place], [address] WBC (Bld) [#/Vol] 7.1 10*3/uL Normal 4.4-11.0 [facility] Comment on above: Performed By: #### L 500.2500, L100.0500 ####[facility] [address] [place], [address] Carbon dioxide, total [Moles /volume] in Central venous bloodOrdered By: Roman Mckeon on 04-22-2025 CO2 [Moles/Vol] 18.8 mmol/L Low 21.0-32.0 [facility] Chloride assayOrdered By: Edgar Mckeon on 04-22-2025 Chloride [Moles/Vol] 107 mmol/L 98-108 [facility] Colonoscopy Reporton 025 Colonoscopy Report Normal [facility] Erythrocyte distribution wid th ratioOrdered By: Roman Mckeon on 04-22-2025 Erythrocyte distribution width (RBC) [Ratio] 17.5 % High 11.6-14.6 [facility] Erythrocyte distribution wid th standard deviationOrdered By: Roman Mckeon on 04-22-2025 Erythrocyte distribution width (RBC) [Ratio] 52.6 fl High 35.1-43.9 [facility] Glomerular filtration rate ( GFR) estimation/1.73 sq m using serum, plasma, or whole bOrdered By: Roman Mckeon on 04-22-2025 GFR/1.73 sq M.predicted among non-blacks MDRD (S/P/Bld) [Vol rate/Area] 55 mL/min/{1.73_m2} Low >60 [facility] Hematocrit Auto (Bld) [Volum e fraction]Ordered By: Roman Mckeon on 04-22-2025 Hematocrit (Bld) [Volume fraction] 29.2 % Low 37-47 [facility] Hemoglobin measurementOrdere d By: Roman Mckeon on 04-22-2025 Hemoglobin (Bld) [Mass/Vol] 9.4 g/dL Low 12.0-15.0 [facility] MCV (mean corpuscular volume ) determinationOrdered By: Roman Mckeon on 04-22-2025 MCV (RBC) [Entitic vol] 83.2 fL 81-99 [facility] MR/POSTOP.ANEon 04-22-2025 MR/POSTOP.ANE Normal [facility] Mean corpuscular hemoglobin (MCH) determinationOrdered By: Roman Mckeon on 04-22-2025 MCH (RBC) [Entitic mass] 26.8 pg Low 27.0-32.0 [facility] Platelet countOrdered By: Edgar Mckeon on 04-22-2025 Platelets (Bld) [#/Vol] 152 10*3/uL 150-450 [facility] Potassium measurement (mass/ volume)Ordered By: Roman Mckeon on 04-22-2025 Potassium (Unsp spec) [Mass/Vol] 3.8 mmol/L 3.3-5.1 [facility] RBC Auto (Bld) [#/Vol]Ordere d By: Roman Mckeon on 04-22-2025 RBC (Bld) [#/Vol] 3.51 10*6/uL Low 4.2-5.4 [facility] Serum creatinine measurement (mass/volume)Ordered By: Roman Mckeon on 04-22-2025 Creatinine [Mass/Vol] 1.08 mg/dL 0.70-1.20 [facility] Serum glucose measurement (m ass/volume)Ordered By: Roman Mckeon on 04-22-2025 Glucose [Mass/Vol] 89 mg/dL 70-99 [facility] Serum or plasma calcium stefania urement (mass/volume)Ordered By: Roman Mckeon on 04-22-2025 Calcium [Mass/Vol] 8.3 mg/dL 7.6-11.0 [facility] Serum or plasma urea nitroge n measurement (mass/volume)Ordered By: Roman Mckeon on 04-22-2025 Urea nitrogen [Mass/Vol] 8 mg/dL 4-19 [facility] Sodium levelOrdered By: Domingo Mckeon on 04-22-2025 Sodium [Moles/Vol] 137 mmol/L 133-145 [facility] Surgery Specimen Level Willi 04-22-2025 Surgery Specimen Level IV Normal [facility] Comment on above: Performed By: #### P SUIV ####[facility] [address] [place], [place], [phone] White blood cell (WBC) count Ordered By: Roman Mckeon on 04-22-2025 WBC (Bld) [#/Vol] 7.1 10*3/uL 4.4-11.0 [facility] Basic Metabolic Profile (BMP )on 04-21-2025 BUN/CRE 9.9 RATIO Low 10-20 [facility] Comment on above: Performed By: #### L 100.0500, L500.2500 ####[facility] [address] [facility] [place], [place], [phone] Calcium [Mass/Vol] 8.7 mg/dL Normal 7.6-11.0 [facility] Comment on above: Performed By: #### L 100.0500, L500.2500 ####[facility] [address] [place], [address] Chloride [Moles/Vol] 107 mmol/L Normal 98-108 [facility] Comment on above: Performed By: #### L 100.0500, L500.2500 ####[facility] [address] [place], [address] CO2 [Moles/Vol] 24.7 mmol/L Normal 21.0-32.0 [facility] Comment on above: Performed By: #### L 100.0500, L500.2500 ####[facility] [address] [place], [address] Creatinine [Mass/Vol] 1.21 mg/dL High 0.70-1.20 [facility] Comment on above: Performed By: #### L 100.0500, L500.2500 ####[facility] [address] [place], [address] ECRCL 31.21 ml/min Low 50-250 [facility] Comment on above: Performed By: #### L 100.0500, L500.2500 ####[facility] [address] [place], [address] GAP 9 Normal 5-15 [facility] Comment on above: Performed By: #### L 100.0500, L500.2500 ####[facility] [address] [place], [address] GFR/1.73 sq M.predicted among non-blacks MDRD (S/P/Bld) [Vol rate/Area] 48 mL/min/{1.73_m2} Low >60 [facility] Comment on above: Result Comment: mL/m in/1.73m2 CKD-EPI Creatinine Equation (2020) Performed By: #### L 100.0500, L500.2500 ####[facility] [address] [place], [address] Glucose [Mass/Vol] 85 mg/dL Normal 70-99 [facility] Comment on above: Performed By: #### L 100.0500, L500.2500 ####[facility] [address] [place], [address] Potassium [Moles/Vol] 3.1 mmol/L Low 3.3-5.1 [facility] Comment on above: Performed By: #### L 100.0500, L500.2500 ####[facility] [address] [place], [address] Sodium [Moles/Vol] 141 mmol/L Normal 133-145 [facility] Comment on above: Performed By: #### L 100.0500, L500.2500 ####[facility] [address] [place], [address] Urea nitrogen [Mass/Vol] 12 mg/dL Normal 4-19 [facility] Comment on above: Performed By: #### L 100.0500, L500.2500 ####[facility] [address] [place], [address] Bedside Glucoseon 04-21-2025 FINGERSTICK GLU 109 mg/dL High 74-106 [facility] Comment on above: Result Comment: YONY HARTMANN OF PATIENT CARE PER NURSING PROTOCOL Performed By: #### L 501.080 ####[facility] [address] [place], [address] Brain/Head without Contrasto n 04-21-2025 Brain/Head without Contrast Normal [facility] CBC-Complete Blood Cnt No Di ffon 04-21-2025 Erythrocyte distribution width (RBC) [Ratio] 17.2 % High 11.6-14.6 [facility] Comment on above: Performed By: #### L 100.0500, L500.2500 ####[facility] [address] [place], [address] Hematocrit (Bld) [Volume fraction] 31.7 % Low 37-47 [facility] Comment on above: Performed By: #### L 100.0500, L500.2500 ####[facility] [address] [place], [address] Hemoglobin (Bld) [Mass/Vol] 10.1 g/dL Low 12.0-15.0 [facility] Comment on above: Performed By: #### L 100.0500, L500.2500 ####[facility] [address] [place], [address] MCH (RBC) [Entitic mass] 26.5 pg Low 27.0-32.0 [facility] Comment on above: Performed By: #### L 100.0500, L500.2500 ####[facility] [address] [place], [address] MCHC (RBC) [Mass/Vol] 31.9 g/dL Low 32-36 [facility] Comment on above: Performed By: #### L 100.0500, L500.2500 ####[facility] [address] [place], [address] MCV (RBC) [Entitic vol] 83.2 fL Normal 81-99 [facility] Comment on above: Performed By: #### L 100.0500, L500.2500 ####[facility] [address] [place], [address] Platelet mean volume (Bld) [Entitic vol] 9.4 fL Normal 6.2-12.0 [facility] Comment on above: Performed By: #### L 100.0500, L500.2500 ####[facility] [address] [place], [address] Platelets (Bld) [#/Vol] 174 10*3/uL Normal 150-450 [facility] Comment on above: Performed By: #### L 100.0500, L500.2500 ####[facility] [address] [place], [address] RBC (Bld) [#/Vol] 3.81 10*6/uL Low 4.2-5.4 [facility] Comment on above: Performed By: #### L 100.0500, L500.2500 ####[facility] [address] [place], [address] RDW SD 51.9 fl High 35.1-43.9 [facility] Comment on above: Performed By: #### L 100.0500, L500.2500 ####[facility] [address] [place], [address] WBC (Bld) [#/Vol] 5.3 10*3/uL Normal 4.4-11.0 [facility] Comment on above: Performed By: #### L 100.0500, L500.2500 ####[facility] [address] [place], [address] EGD Reporton 04-21-2025 EGD Report Normal [facility] Gl[facility] deOrdered By: Roman Mckeon on 04-21-2025 Glucose [Mass/Vol] 109 mg/dL High 74-106 [facility] MR/POSTOP.ANEon 04-21-2025 MR/POSTOP.ANE Normal [facility] MR/KGTCSHAW5fs 04-21-2025 MR/POSTOPAN2 Normal [facility] Stool Occult Blood iFOBon STOB Positive Normal [facility] Comment on above: Performed By: #### M 100.7900 ####[facility] [address] [place], [address] Stool gastrointestinal hemog lobin detection by immunologic methodOrdered By: Sachin Murillo on 04-21-2025 Lower GI hemoglobin IA Ql (Stl) Positive Abnormal [facility] Basic Metabolic Profile (BMP )on 04-20-2025 BUN/CRE 13.9 RATIO Normal 10-20 [facility] Comment on above: Performed By: #### L 501.2300, L500.2500, L100.0500, L501.5200, L501.9520 ####[facility] [address] [place], [address] Calcium [Mass/Vol] 8.8 mg/dL Normal 7.6-11.0 [facility] Comment on above: Performed By: #### L 501.2300, L500.2500, L100.0500, L501.5200, L501.9520 ####[facility] [address] [place], [address] Chloride [Moles/Vol] 106 mmol/L Normal 98-108 [facility] Comment on above: Performed By: #### L 501.2300, L500.2500, L100.0500, L501.5200, L501.9520 ####[facility] [address] [place], [address] CO2 [Moles/Vol] 22.5 mmol/L Normal 21.0-32.0 [facility] Comment on above: Performed By: #### L 501.2300, L500.2500, L100.0500, L501.5200, L501.9520 ####[facility] [address] [place], [address] Creatinine [Mass/Vol] 1.23 mg/dL High 0.70-1.20 [facility] Comment on above: Performed By: #### L 501.2300, L500.2500, L100.0500, L501.5200, L501.9520 ####[facility] [address] [place], [address] ECRCL 30.70 ml/min Low 50-250 [facility] Comment on above: Performed By: #### L 501.2300, L500.2500, L100.0500, L501.5200, L501.9520 ####[facility] [address] [place], [address] GAP 12 Normal 5-15 [facility] Comment on above: Performed By: #### L 501.2300, L500.2500, L100.0500, L501.5200, L501.9520 ####[facility] [address] [place], [address] GFR/1.73 sq M.predicted among non-blacks MDRD (S/P/Bld) [Vol rate/Area] 47 mL/min/{1.73_m2} Low >60 [facility] Comment on above: Result Comment: mL/m in/1.73m2 CKD-EPI Creatinine Equation (2020) Performed By: #### L 501.2300, L500.2500, L100.0500, L501.5200, L501.9520 ####[facility] [address] [place], [address] Glucose [Mass/Vol] 75 mg/dL Normal 70-99 [facility] Comment on above: Performed By: #### L 501.2300, L500.2500, L100.0500, L501.5200, L501.9520 ####[facility] [address] [place], [address] Potassium [Moles/Vol] 3.4 mmol/L Normal 3.3-5.1 [facility] Comment on above: Performed By: #### L 501.2300, L500.2500, L100.0500, L501.5200, L501.9520 ####[facility] [address] [place], [address] Sodium [Moles/Vol] 140 mmol/L Normal 133-145 [facility] Comment on above: Performed By: #### L 501.2300, L500.2500, L100.0500, L501.5200, L501.9520 ####[facility] [address] [place], [address] Urea nitrogen [Mass/Vol] 17 mg/dL Normal 4-19 [facility] Comment on above: Performed By: #### L 501.2300, L500.2500, L100.0500, L501.5200, L501.9520 ####[facility] [address] [place], [address] CBC-Complete Blood Cnt No Di ffon 04-20-2025 Erythrocyte distribution width (RBC) [Ratio] 16.9 % High 11.6-14.6 [facility] Comment on above: Performed By: #### L 501.2300, L500.2500, L100.0500, L501.5200, L501.9520 ####[facility] [address] [place], [address] Hematocrit (Bld) [Volume fraction] 33.7 % Low 37-47 [facility] Comment on above: Performed By: #### L 501.2300, L500.2500, L100.0500, L501.5200, L501.9520 ####[facility] [address] [place], [address] Hemoglobin (Bld) [Mass/Vol] 10.6 g/dL Low 12.0-15.0 [facility] Comment on above: Performed By: #### L 501.2300, L500.2500, L100.0500, L501.5200, L501.9520 ####[facility] [address] [place], [address] MCH (RBC) [Entitic mass] 26.6 pg Low 27.0-32.0 [facility] Comment on above: Performed By: #### L 501.2300, L500.2500, L100.0500, L501.5200, L501.9520 ####[facility] [address] [place], [address] MCHC (RBC) [Mass/Vol] 31.5 g/dL Low 32-36 [facility] Comment on above: Performed By: #### L 501.2300, L500.2500, L100.0500, L501.5200, L501.9520 ####[facility] [address] [place], [address] MCV (RBC) [Entitic vol] 84.5 fL Normal 81-99 [facility] Comment on above: Performed By: #### L 501.2300, L500.2500, L100.0500, L501.5200, L501.9520 ####[facility] [address] [place], [address] Platelet mean volume (Bld) [Entitic vol] 9.9 fL Normal 6.2-12.0 [facility] Comment on above: Performed By: #### L 501.2300, L500.2500, L100.0500, L501.5200, L501.9520 ####[facility] [address] [place], [address] Platelets (Bld) [#/Vol] 146 10*3/uL Low 150-450 [facility] Comment on above: Performed By: #### L 501.2300, L500.2500, L100.0500, L501.5200, L501.9520 ####[facility] [address] [place], [address] RBC (Bld) [#/Vol] 3.99 10*6/uL Low 4.2-5.4 [facility] Comment on above: Performed By: #### L 501.2300, L500.2500, L100.0500, L501.5200, L501.9520 ####[facility] [address] [place], [address] RDW SD 52.5 fl High 35.1-43.9 [facility] Comment on above: Performed By: #### L 501.2300, L500.2500, L100.0500, L501.5200, L501.9520 ####[facility] [address] [place], [address] WBC (Bld) [#/Vol] 5.0 10*3/uL Normal 4.4-11.0 [facility] Comment on above: Performed By: #### L 501.2300, L500.2500, L100.0500, L501.5200, L501.9520 ####[facility] [address] [place], [address] EGD Reporton 04-20-2025 EGD Report Normal [facility] Electrocardiogram reportOrde red By: Bhavik Smiley on 04-20-2025 EKG study [facility] Work Phone: MR/POSTOP.ANEon 04-20-2025 MR/POSTOP.ANE Normal [facility] MR/ZLGLNFNN0de 04-20-2025 MR/POSTOPAN2 Normal [facility] Magnesiumon 04-20-2025 Magnesium [Mass/Vol] 2.2 mg/dL Normal 1.5-2.2 [facility] Comment on above: Performed By: #### L 501.2300, L500.2500, L100.0500, L501.5200, L501.9520 ####[facility] [address] [place], [address] Magnesium measurement (mass/ volume)Ordered By: Roman Mckeon on 04-20-2025 Magnesium (Unsp spec) [Mass/Vol] 2.2 mg/dL 1.5-2.2 [facility] Phosphoruson 04-20-2025 Phosphate [Mass/Vol] 3.5 mg/dL Normal 2.7-4.5 [facility] Comment on above: Performed By: #### L 501.2300, L500.2500, L100.0500, L501.5200, L501.9520 ####[facility] [address] [place], [address] TSH DL <= 0.005 mIU/L QnOrde red By: Storm Gómez on 04-20-2025 TSH Qn 5.620 uIU/mL High 0.300-4.20 0 [facility] Thyroid Stim Hormone (TSH)on 04-20-2025 TSH 5.620 uIU/mL High 0.300-4.20 0 [facility] Comment on above: Performed By: #### L 501.2300, L500.2500, L100.0500, L501.5200, L501.9520 ####[facility] [address] [place], [address] Absolute lymphocyte countOrd ered By: Sachin Murillo on 04-19-2025 Lymphocytes Auto (Unsp spec) [#/Vol] 0.78 10*3/uL Low 0.83-4.51 [facility] Automated lymphocyte count a s percentage of total leukocytesOrdered By: Sachin Murillo on 04-19-2025 Lymphocytes/100 WBC Auto (Unsp spec) 11.1 % Low 19-41 [facility] Basic Metabolic Profile (BMP )on 04-19-2025 BUN/CRE 16.8 RATIO Normal 10-20 [facility] Comment on above: Performed By: #### L 100.0100, L500.2500 ####[facility] [address] [place], [address] Calcium [Mass/Vol] 8.1 mg/dL Normal 7.6-11.0 [facility] Comment on above: Performed By: #### L 100.0100, L500.2500 ####[facility] [address] [place], [address] Chloride [Moles/Vol] 106 mmol/L Normal 98-108 [facility] Comment on above: Performed By: #### L 100.0100, L500.2500 ####[facility] [address] [place], [address] CO2 [Moles/Vol] 22.1 mmol/L Normal 21.0-32.0 [facility] Comment on above: Performed By: #### L 100.0100, L500.2500 ####[facility] [address] [place], [address] Creatinine [Mass/Vol] 1.17 mg/dL Normal 0.70-1.20 [facility] Comment on above: Performed By: #### L 100.0100, L500.2500 ####[facility] [address] [place], [address] ECRCL 32.28 ml/min Low 50-250 [facility] Comment on above: Performed By: #### L 100.0100, L500.2500 ####[facility] [address] [place], [address] GAP 10 Normal 5-15 [facility] Comment on above: Performed By: #### L 100.0100, L500.2500 ####[facility] [address] [place], [address] GFR/1.73 sq M.predicted among non-blacks MDRD (S/P/Bld) [Vol rate/Area] 50 mL/min/{1.73_m2} Low >60 [facility] Comment on above: Result Comment: mL/m in/1.73m2 CKD-EPI Creatinine Equation (2020) Performed By: #### L 100.0100, L500.2500 ####[facility] [address] [place], [address] Glucose [Mass/Vol] 111 mg/dL High 70-99 [facility] Comment on above: Performed By: #### L 100.0100, L500.2500 ####[facility] [address] [place], [address] Potassium [Moles/Vol] 3.6 mmol/L Normal 3.3-5.1 [facility] Comment on above: Performed By: #### L 100.0100, L500.2500 ####[facility] [address] [place], [address] Sodium [Moles/Vol] 137 mmol/L Normal 133-145 [facility] Comment on above: Performed By: #### L 100.0100, L500.2500 ####[facility] [address] [place], [address] Urea nitrogen [Mass/Vol] 20 mg/dL High 4-19 [facility] Comment on above: Performed By: #### L 100.0100, L500.2500 ####[facility] [address] [place], [address] Basophil percentageOrdered B y: Sachin Murillo on 04-19-2025 Basophils/100 WBC (Bld) 0.4 % 0-1 [facility] CBC W/Diff, Automatedon Absolute Lymph 0.78 X10 3/uL Low 0.83-4.51 [facility] Comment on above: Performed By: #### L 100.0100, L500.2500 ####[facility] [address] [place], [address] Absolute Neut 5.2 X10 3/uL Normal 2.0-7.7 [facility] Comment on above: Performed By: #### L 100.0100, L500.2500 ####[facility] [address] [place], [address] Basophils/100 WBC (Bld) 0.4 % Normal 0-1 [facility] Comment on above: Performed By: #### L 100.0100, L500.2500 ####[facility] [address] [place], [address] Eosinophils/100 WBC (Bld) 1.9 % Normal 0-5 [facility] Comment on above: Performed By: #### L 100.0100, L500.2500 ####[facility] [address] [place], [address] Erythrocyte distribution width (RBC) [Ratio] 17.0 % High 11.6-14.6 [facility] Comment on above: Performed By: #### L 100.0100, L500.2500 ####[facility] [address] [place], [address] Hematocrit (Bld) [Volume fraction] 29.4 % Low 37-47 [facility] Comment on above: Performed By: #### L 100.0100, L500.2500 ####[facility] [address] [place], [address] Hemoglobin (Bld) [Mass/Vol] 9.5 g/dL Low 12.0-15.0 [facility] Comment on above: Performed By: #### L 100.0100, L500.2500 ####[facility] [address] [place], [address] IG% 0.400 Normal 0.0-0.9 [facility] Comment on above: Result Comment: IG% - Immature Granulocytes (promyelocytes, myelocytes andmetamyelocytes) > 1% indicates that a LEFT SHIFT is Present. Performed By: #### L 100.0100, L500.2500 ####[facility] [address] [place], [address] Lymphocytes/100 WBC (Bld) 11.1 % Low 19-41 [facility] Comment on above: Performed By: #### L 100.0100, L500.2500 ####[facility] [address] [place], [address] MCH (RBC) [Entitic mass] 27.1 pg Normal 27.0-32.0 [facility] Comment on above: Performed By: #### L 100.0100, L500.2500 ####[facility] [address] [place], [address] MCHC (RBC) [Mass/Vol] 32.3 g/dL Normal 32-36 [facility] Comment on above: Performed By: #### L 100.0100, L500.2500 ####[facility] [address] [place], [address] MCV (RBC) [Entitic vol] 84.0 fL Normal 81-99 [facility] Comment on above: Performed By: #### L 100.0100, L500.2500 ####[facility] [address] [place], [address] Monocytes/100 WBC (Bld) 11.3 % High 0-10 [facility] Comment on above: Performed By: #### L 100.0100, L500.2500 ####[facility] [address] [place], [address] Neutrophils/100 WBC (Bld) 74.9 % High 47-70 [facility] Comment on above: Performed By: #### L 100.0100, L500.2500 ####[facility] [address] [place], [address] Nucleated RBC (Bld) [#/Vol] 0.3 10*3/uL Normal 0-5 [facility] Comment on above: Performed By: #### L 100.0100, L500.2500 ####[facility] [address] [place], [address] Platelet mean volume (Bld) [Entitic vol] 9.8 fL Normal 6.2-12.0 [facility] Comment on above: Performed By: #### L 100.0100, L500.2500 ####[facility] [address] [place], [address] Platelets (Bld) [#/Vol] 133 10*3/uL Low 150-450 [facility] Comment on above: Performed By: #### L 100.0100, L500.2500 ####[facility] [address] [place], [address] RBC (Bld) [#/Vol] 3.50 10*6/uL Low 4.2-5.4 [facility] Comment on above: Performed By: #### L 100.0100, L500.2500 ####[facility] [address] [place], [address] RDW SD 51.9 fl High 35.1-43.9 [facility] Comment on above: Performed By: #### L 100.0100, L500.2500 ####[facility] [address] [place], [address] WBC (Bld) [#/Vol] 7.0 10*3/uL Normal 4.4-11.0 [facility] Comment on above: Performed By: #### L 100.0100, L500.2500 ####[facility] [address] [place], [address] Eosinophil percentageOrdered By: Sachin Murillo on 04-19-2025 Eosinophils/100 WBC (Bld) 1.9 % 0-5 [facility] HH, Hemoglobin AND Hematocri ton 04-19-2025 HCT Normal 37-47 [facility] Comment on above: Result Comment: CBC BEING DONE H H IS IN CBC Performed By: #### L 100.0600 ####[facility] [address] [place], [address] HGB Normal 12.0-15.0 [facility] Comment on above: Result Comment: CBC BEING DONE H H IS IN CBC Performed By: #### L 100.0600 ####[facility] [address] [place], [place], [phone] Hematocrit (Bld) [Volume fraction] 20.6 % Low 37-47 [facility] Comment on above: Performed By: #### L 100.0600 ####[facility] [address] [place], [place], [phone] Hemoglobin (Bld) [Mass/Vol] 6.3 g/dL Low 12.0-15.0 [facility] Comment on above: Performed By: #### L 100.0600 ####[facility] [address] [place], [phone] Immature granulocytes/100 WB C Auto (Bld)Ordered By: Sachin Murillo on 04-19-2025 Immature granulocytes/100 WBC (Bld) 0.400 % 0.0-0.9 [facility] L499.0043on 04-19-2025 Trop T High Sen 24 ng/L High <=14 [facility] Comment on above: Performed By: #### L 499.0043 ####[facility] [address] [place], [address] Lactic Acidon 04-19-2025 Lactate [Moles/Vol] mmol/L Normal 0.0-2.0 [facility] Comment on above: Performed By: #### L 503.6005 ####[facility] [address] [place], [place], [id number] Monocyte percentageOrdered B y: Sachin Murillo on 04-19-2025 Monocytes/100 WBC (Bld) 11.3 % High 0-10 [facility] Neutrophil percentageOrdered By: Sachin Murillo on 04-19-2025 Neutrophils/100 WBC (Bld) 74.9 % High 47-70 [facility] 12 Lead EKGon 04-18-2025 12 Lead EKG Normal [facility] Absolute lymphocyte countOrd ered By: Jeffy Willoughby on 04-18-2025 Lymphocytes Auto (Unsp spec) [#/Vol] 0.83 10*3/uL 0.83-4.51 [facility] Absolute neutrophil countOrd ered By: Jeffy Willoughby on 04-18-2025 Neutrophils (Bld) [#/Vol] 7.0 10*3/uL 2.0-7.7 [facility] Anion gap in Serum or Plasma Ordered By: Jeffy Blocko on 04-18-2025 Anion gap [Moles/Vol] 15 mmol/L 5-15 [facility] Automated lymphocyte count a s percentage of total leukocytesOrdered By: Jeffy Blocko on 04-18-2025 Lymphocytes/100 WBC Auto (Unsp spec) 9.5 % Low 19-41 [facility] BRCon 04-18-2025 RC Normal [facility] Comment on above: Result Comment: [id number] OP RC TRANSFUSED 04/19/25 [id number] OP RC TRANSFUSED 04/19/25 0801 Performed By: #### B RC ####[facility] [address] [place], [place], [phone] BUN/creatinine ratioOrdered By: Jeffyaura Blocko on 04-18-2025 Urea nitrogen/Creatinine [Mass ratio] 18.9 mg/mg 10-20 [facility] Basophil percentageOrdered B y: Jeffy Blocko on 04-18-2025 Basophils/100 WBC (Bld) 0.6 % 0-1 [facility] Bedside Glucoseon 04-18-2025 FINGERSTICK GLU 121 mg/dL High 74-106 [facility] Comment on above: Result Comment: YONY HARTMANN OF PATIENT CARE PER NURSING PROTOCOL Performed By: #### L 501.080 ####[facility] [address] [place], [address] Bilirubin, totalOrdered By: Jeffy Blocko on 04-18-2025 Bilirubin [Mass/Vol] 0.35 mg/dL 0.00-1.30 [facility] CBC W/Diff, Automatedon 03-21 Absolute Lymph 0.83 X10 3/uL Normal 0.83-4.51 [facility] Comment on above: Performed By: #### L 503.6005, L100.0100, L501.2450, L500.4050, BTS ####[facility] [address] [place], [address] Absolute Neut 7.0 X10 3/uL Normal 2.0-7.7 [facility] Comment on above: Performed By: #### L 503.6005, L100.0100, L501.2450, L500.4050, BTS ####[facility] [address] [place], [address] Basophils/100 WBC (Bld) 0.6 % Normal 0-1 [facility] Comment on above: Performed By: #### L 503.6005, L100.0100, L501.2450, L500.4050, BTS ####[facility] [address] [place], [address] Eosinophils/100 WBC (Bld) 0.5 % Normal 0-5 [facility] Comment on above: Performed By: #### L 503.6005, L100.0100, L501.2450, L500.4050, BTS ####[facility] [address] [place], [address] Erythrocyte distribution width (RBC) [Ratio] 17.3 % High 11.6-14.6 [facility] Comment on above: Performed By: #### L 503.6005, L100.0100, L501.2450, L500.4050, BTS ####[facility] [address] [place], [address] Hematocrit (Bld) [Volume fraction] 23.5 % Low 37-47 [facility] Comment on above: Performed By: #### L 503.6005, L100.0100, L501.2450, L500.4050, BTS ####[facility] [address] [place], [address] Hemoglobin (Bld) [Mass/Vol] 7.3 g/dL Low 12.0-15.0 [facility] Comment on above: Performed By: #### L 503.6005, L100.0100, L501.2450, L500.4050, BTS ####[facility] [address] [place], [address] IG% 0.500 Normal 0.0-0.9 [facility] Comment on above: Result Comment: IG% - Immature Granulocytes (promyelocytes, myelocytes andmetamyelocytes) > 1% indicates that a LEFT SHIFT is Present. Performed By: #### L 503.6005, L100.0100, L501.2450, L500.4050, BTS ####[facility] [address] [place], [address] Lymphocytes/100 WBC (Bld) 9.5 % Low 19-41 [facility] Comment on above: Performed By: #### L 503.6005, L100.0100, L501.2450, L500.4050, BTS ####[facility] [address] [place], [address] MCH (RBC) [Entitic mass] 24.6 pg Low 27.0-32.0 [facility] Comment on above: Performed By: #### L 503.6005, L100.0100, L501.2450, L500.4050, BTS ####[facility] [address] [place], [address] MCHC (RBC) [Mass/Vol] 31.1 g/dL Low 32-36 [facility] Comment on above: Performed By: #### L 503.6005, L100.0100, L501.2450, L500.4050, BTS ####[facility] [address] [place], [address] MCV (RBC) [Entitic vol] 79.1 fL Low 81-99 [facility] Comment on above: Performed By: #### L 503.6005, L100.0100, L501.2450, L500.4050, BTS ####[facility] [address] [place], [address] Monocytes/100 WBC (Bld) 9.4 % Normal 0-10 [facility] Comment on above: Performed By: #### L 503.6005, L100.0100, L501.2450, L500.4050, BTS ####[facility] [address] [place], [address] Neutrophils/100 WBC (Bld) 79.5 % High 47-70 [facility] Comment on above: Performed By: #### L 503.6005, L100.0100, L501.2450, L500.4050, BTS ####[facility] [address] [place], [address] Nucleated RBC (Bld) [#/Vol] 0.2 10*3/uL Normal 0-5 [facility] Comment on above: Performed By: #### L 503.6005, L100.0100, L501.2450, L500.4050, BTS ####[facility] [address] [place], [address] Platelet mean volume (Bld) [Entitic vol] 9.6 fL Normal 6.2-12.0 [facility] Comment on above: Performed By: #### L 503.6005, L100.0100, L501.2450, L500.4050, BTS ####[facility] [address] [place], [address] Platelets (Bld) [#/Vol] 195 10*3/uL Normal 150-450 [facility] Comment on above: Performed By: #### L 503.6005, L100.0100, L501.2450, L500.4050, BTS ####[facility] [address] [place], [address] RBC (Bld) [#/Vol] 2.97 10*6/uL Low 4.2-5.4 [facility] Comment on above: Performed By: #### L 503.6005, L100.0100, L501.2450, L500.4050, BTS ####[facility] [address] [place], [address] RDW SD 50.4 fl High 35.1-43.9 [facility] Comment on above: Performed By: #### L 503.6005, L100.0100, L501.2450, L500.4050, BTS ####[facility] [address] [place], [address] WBC (Bld) [#/Vol] 8.7 10*3/uL Normal 4.4-11.0 [facility] Comment on above: Performed By: #### L 503.6005, L100.0100, L501.2450, L500.4050, BTS ####[facility] [address] [place], [address] Carbon dioxide, total [Moles /volume] in Central venous bloodOrdered By: Jeffy Willoughby on 04-18-2025 CO2 [Moles/Vol] 21.0 mmol/L 21.0-32.0 [facility] Chloride assayOrdered By: Barrett Willoughby on 04-18-2025 Chloride [Moles/Vol] 97 mmol/L Low 98-108 [facility] Comprehensive Metabolic Prof ilon 04-18-2025 Albumin [Mass/Vol] 4.1 g/dL Normal 3.4-4.8 [facility] Comment on above: Performed By: #### L 503.6005, L100.0100, L501.2450, L500.4050, BTS ####[facility] [address] [place], [address] Albumin/Globulin [Mass ratio] 1.7 {ratio} Normal 0.9-2.4 [facility] Comment on above: Performed By: #### L 503.6005, L100.0100, L501.2450, L500.4050, BTS ####[facility] [address] [place], [address] ALK PHOS 88 U/L Normal 35-104 [facility] Comment on above: Performed By: #### L 503.6005, L100.0100, L501.2450, L500.4050, BTS ####[facility] [address] [place], [address] ALT [Catalytic activity/Vol] 8 U/L Normal <=34 [facility] Comment on above: Performed By: #### L 503.6005, L100.0100, L501.2450, L500.4050, BTS ####[facility] [address] [place], [address] AST [Catalytic activity/Vol] 16 U/L Normal <=31 [facility] Comment on above: Performed By: #### L 503.6005, L100.0100, L501.2450, L500.4050, BTS ####[facility] [address] [place], [address] Bilirubin [Mass/Vol] 0.35 mg/dL Normal 0.00-1.30 [facility] Comment on above: Performed By: #### L 503.6005, L100.0100, L501.2450, L500.4050, BTS ####[facility] [address] [place], [address] BUN/CRE 18.9 RATIO Normal 10-20 [facility] Comment on above: Performed By: #### L 503.6005, L100.0100, L501.2450, L500.4050, BTS ####[facility] [address] [place], [address] Calcium [Mass/Vol] 9.0 mg/dL Normal 7.6-11.0 [facility] Comment on above: Performed By: #### L 503.6005, L100.0100, L501.2450, L500.4050, BTS ####[facility] [address] [place], [address] Chloride [Moles/Vol] 97 mmol/L Low 98-108 [facility] Comment on above: Performed By: #### L 503.6005, L100.0100, L501.2450, L500.4050, BTS ####[facility] [address] [place], [address] CO2 [Moles/Vol] 21.0 mmol/L Normal 21.0-32.0 [facility] Comment on above: Performed By: #### L 503.6005, L100.0100, L501.2450, L500.4050, BTS ####[facility] [address] [place], [address] Creatinine [Mass/Vol] 1.28 mg/dL High 0.70-1.20 [facility] Comment on above: Performed By: #### L 503.6005, L100.0100, L501.2450, L500.4050, BTS ####[facility] [address] [place], [address] ECRCL 29.72 ml/min Low 50-250 [facility] Comment on above: Performed By: #### L 503.6005, L100.0100, L501.2450, L500.4050, BTS ####[facility] [address] [place], [address] GAP 15 Normal 5-15 [facility] Comment on above: Performed By: #### L 503.6005, L100.0100, L501.2450, L500.4050, BTS ####[facility] [address] [place], [address] GFR/1.73 sq M.predicted among non-blacks MDRD (S/P/Bld) [Vol rate/Area] 45 mL/min/{1.73_m2} Low >60 [facility] Comment on above: Result Comment: mL/m in/1.73m2 CKD-EPI Creatinine Equation (2020) Performed By: #### L 503.6005, L100.0100, L501.2450, L500.4050, BTS ####[facility] [address] [place], [address] Globulin (S) [Mass/Vol] 2.4 g/dL Normal 2.2-4.2 [facility] Comment on above: Performed By: #### L 503.6005, L100.0100, L501.2450, L500.4050, BTS ####[facility] [address] [place], [address] Glucose [Mass/Vol] 135 mg/dL High 70-99 [facility] Comment on above: Performed By: #### L 503.6005, L100.0100, L501.2450, L500.4050, BTS ####[facility] [address] [place], [address] Potassium [Moles/Vol] 3.8 mmol/L Normal 3.3-5.1 [facility] Comment on above: Performed By: #### L 503.6005, L100.0100, L501.2450, L500.4050, BTS ####[facility] [address] [place], [address] Sodium [Moles/Vol] 133 mmol/L Normal 133-145 [facility] Comment on above: Performed By: #### L 503.6005, L100.0100, L501.2450, L500.4050, BTS ####[facility] [address] [place], [address] T PROT 6.4 g/dL Normal 5.9-8.4 [facility] Comment on above: Performed By: #### L 503.6005, L100.0100, L501.2450, L500.4050, BTS ####[facility] [address] [place], [address] Urea nitrogen [Mass/Vol] 24 mg/dL High 4-19 [facility] Comment on above: Performed By: #### L 503.6005, L100.0100, L501.2450, L500.4050, BTS ####[facility] [address] [place], [address] Emergency Department Summary on 04-18-2025 Emergency Department Summary Normal [facility] Eosinophil percentageOrdered By: Jeffy Willoughby on 04-18-2025 Eosinophils/100 WBC (Bld) 0.5 % 0-5 [facility] Erythrocyte distribution wid th ratioOrdered By: Jeffy Willoughby on 04-18-2025 Erythrocyte distribution width (RBC) [Ratio] 17.3 % High 11.6-14.6 [facility] Erythrocyte distribution wid th standard deviationOrdered By: Jeffy Willoughby on 04-18-2025 Erythrocyte distribution width (RBC) [Ratio] 50.4 fl High 35.1-43.9 [facility] Ferritinon 04-18-2025 Ferritin [Mass/Vol] 12 ng/mL Low 22-378 [facility] Comment on above: Performed By: #### L 503.6550, L503.6030 ####[facility] [address] [place], [address] Glomerular filtration rate ( GFR) estimation/1.73 sq m using serum, plasma, or whole bOrdered By: Jeffy Willoughby on 04-18-2025 GFR/1.73 sq M.predicted among non-blacks MDRD (S/P/Bld) [Vol rate/Area] 45 mL/min/{1.73_m2} Low >60 [facility] Comment on above: mL/min/1.73m2 CKD-EP I Creatinine Equation (2020) [facility] deOrdered By: Jeffy Willoughby on 04-18-2025 Glucose [Mass/Vol] 121 mg/dL High 74-106 [facility] Comment on above: MANAGEMENT OF PATIEN T CARE PER NURSING PROTOCOL H AND P Exam - Hospitaliston 04-18-2025 H&P Exam - Hospitalist Normal [facility] Hematocrit Auto (Bld) [Volum e fraction]Ordered By: Jeffy Willoughby on 04-18-2025 Hematocrit (Bld) [Volume fraction] 23.5 % Low 37-47 [facility] Hemoglobin measurementOrdere d By: Jeffy Willoughby on 04-18-2025 Hemoglobin (Bld) [Mass/Vol] 7.3 g/dL Low 12.0-15.0 [facility] Immature granulocytes/100 WB C Auto (Bld)Ordered By: Jeffyaura Willoughby on 04-18-2025 Immature granulocytes/100 WBC (Bld) 0.500 % 0.0-0.9 [facility] Comment on above: IG% - Immature Granu locytes (promyelocytes, myelocytes and metamyelocytes) > 1% indicates that a LEFT SHIFT is Present. Iron measurement (mass/mass) Ordered By: Sachin Murillo on 04-18-2025 Iron (Unsp spec) [Mass/Mass] 16 ug/dL Low 50-170 [facility] Iron+Iron Binding Capacityon 04-18-2025 Iron [Mass/Vol] 16 ug/dL Low 50-170 [facility] Comment on above: Performed By: #### L 067.3501, L503.6030 ####[facility] [address] [place], [place], [id number] IRON SATURATION 4.0 Low 13-59 [facility] Comment on above: Performed By: #### L 075.8092, L503.6030 ####[facility] [address] [place], [address] TIBC 372 ug/dL Normal 250-450 [facility] Comment on above: Performed By: #### L 503.6550, L503.6030 ####[facility] [address] [place], [address] UIBC 356 ug/dL Normal 228-428 [facility] Comment on above: Performed By: #### L 503.6550, L503.6030 ####[facility] [address] [place], [address] L499.0042on 04-18-2025 Trop T High Sen 24 ng/L High <=14 [facility] Comment on above: Performed By: #### L 499.0042 ####[facility] [address] [place], [address] L501.4021on 04-18-2025 Trop T High Sen 30 ng/L High <=14 [facility] Comment on above: Performed By: #### L 501.4021 ####[facility] [address] [place], [address] Laboratory - Chemistry and C hemistry - challengeOrdered By: Jeffy Willoughby on 04-18-2025 AST [Catalytic activity/Vol] 16 U/L <32 [facility] Lactic Acidon 04-18-2025 Lactate [Moles/Vol] 2.6 mmol/L Invalid Interpretation Code 0.0-2.0 [facility] Comment on above: Order Comment: Y Result Comment: Crit ical Result(s) Called LSPARR at: 1946 by:DIOGO??Results read back by same. Performed By: #### L 503.6005, L100.0100, L501.2450, L500.4050, BTS ####[facility] [address] [place], [address] Lactic acid measurementOrder ed By: Jeffy Willoughby on 04-18-2025 Lactate [Moles/Vol] 2.6 mmol/L High 0.0-2.0 [facility] Comment on above: Critical Result(s) C alled LSPARR at: 1946 by: DIOGO Results read back by same. Lipaseon 04-18-2025 Lipase [Catalytic activity/Vol] 15 U/L Normal 13-75 [facility] Comment on above: Result Comment: Stacy pringle note:LIPASE revised reference range effective 23.New Lipase methodology. Expected to produce lower valuesthan the previous assay method.NEW Reference Range: 13 - 75 U/L Performed By: #### L 503.6005, L100.0100, L501.2450, L500.4050, BTS ####[facility] [address] [place], [place], [id number] Lipase measurementOrdered By : Jeffy Willoughby on 04-18-2025 Lipase [Catalytic activity/Vol] 15 U/L 13-75 [facility] Comment on above: Please note:LIPASE r evised reference range effective 23. New Lipase methodology. Expected to produce lower values than the previous assay method. NEW Reference Range: 13 - 75 U/L MCV (mean corpuscular volume ) determinationOrdered By: Jeffy Willoughby on 04-18-2025 MCV (RBC) [Entitic vol] 79.1 fL Low 81-99 [facility] Mean corpuscular hemoglobin (MCH) determinationOrdered By: Jeffy Willoughby on 04-18-2025 MCH (RBC) [Entitic mass] 24.6 pg Low 27.0-32.0 [facility] Mean corpuscular hemoglobin concentration (MCHC) determinationOrdered By: Jeffy Willoughby on 04-18-2025 MCHC (RBC) [Mass/Vol] 31.1 g/dL Low 32-36 [facility] Mean platelet volume determi nationOrdered By: Jeffyaura Willoughby on 04-18-2025 Platelet mean volume (Bld) [Entitic vol] 9.6 fL 6.2-12.0 [facility] Monocyte percentageOrdered B y: Jeffy Willoughby on 04-18-2025 Monocytes/100 WBC (Bld) 9.4 % 0-10 [facility] Neutrophil percentageOrdered By: Jeffy Willoughby on 04-18-2025 Neutrophils/100 WBC (Bld) 79.5 % High 47-70 [facility] No Panel InformationOrdered By: Sachin Murillo on 04-18-2025 356 ug/dL 228-428 [facility] No Panel InformationOrdered By: Jeffy Willoughby on 04-18-2025 16 U/L <32 [facility] Nucleated red blood cell per centageOrdered By: Jeffy Willoughby on 04-18-2025 Nucleated RBC/100 WBC (Bld) [Ratio] 0.2 % 0-5 [facility] Platelet countOrdered By: Barrett Willoughby on 04-18-2025 Platelets (Bld) [#/Vol] 195 10*3/uL 150-450 [facility] Potassium measurement (mass/ volume)Ordered By: Jeffy Willoughby on 04-18-2025 Potassium (Unsp spec) [Mass/Vol] 3.8 mmol/L 3.3-5.1 [facility] RBC Auto (Bld) [#/Vol]Ordere d By: Jeffy Willoughby on 04-18-2025 RBC (Bld) [#/Vol] 2.97 10*6/uL Low 4.2-5.4 [facility] Serum creatinine measurement (mass/volume)Ordered By: Jeffy Willoughby on 04-18-2025 Creatinine [Mass/Vol] 1.28 mg/dL High 0.70-1.20 [facility] Serum globulin measurementOr dered By: Jeffy Willoughby on 04-18-2025 Globulin (S) [Mass/Vol] 2.4 g/dL 2.2-4.2 [facility] Serum glucose measurement (m ass/volume)Ordered By: Jeffy Willoughby on 04-18-2025 Glucose [Mass/Vol] 135 mg/dL High 70-99 [facility] Serum or plasma alanine pizarro otransferase (ALT) measurementOrdered By: Jeffy Willoughby on 04-18-2025 ALT [Catalytic activity/Vol] 8 U/L <35 [facility] Serum or plasma albumin stefania urement (mass/volume)Ordered By: Jeffy Willoughby on 04-18-2025 Albumin [Mass/Vol] 4.1 g/dL 3.4-4.8 [facility] Serum or plasma albumin/glob ulin mass ratioOrdered By: Jeffy Willoughby on 04-18-2025 Albumin/Globulin [Mass ratio] 1.7 {ratio} 0.9-2.4 [facility] Serum or plasma alkaline anthony sphatase measurementOrdered By: Jeffy Willoughby on 04-18-2025 ALP [Catalytic activity/Vol] 88 U/L 35-104 [facility] Serum or plasma calcium stefania urement (mass/volume)Ordered By: Jeffy Willoughby on 04-18-2025 Calcium [Mass/Vol] 9.0 mg/dL 7.6-11.0 [facility] Serum or plasma ferritin felicia surement (mass/volume)Ordered By: Sachin Murillo on 04-18-2025 Ferritin [Mass/Vol] 12 ng/mL Low 22-378 [facility] Serum or plasma iron saturat ion measurement (mass fraction)Ordered By: Sachin Murillo on 04-18-2025 Iron saturation [Mass fraction] 4.0 % Low 13-59 [facility] Serum or plasma urea nitroge n measurement (mass/volume)Ordered By: Jeffy Willoughby on 04-18-2025 Urea nitrogen [Mass/Vol] 24 mg/dL High 4-19 [facility] Sodium levelOrdered By: Jeffy Willoughby on 04-18-2025 Sodium [Moles/Vol] 133 mmol/L 133-145 [facility] Total proteinOrdered By: Jeffy Willoughby on 04-18-2025 Protein [Mass/Vol] 6.4 g/dL 5.9-8.4 [facility] Troponin T.cardiac [Mass/vol ume] in Serum or Plasma by High sensitivity methodOrdered By: Jeffy Willoughby on 04-18-2025 Troponin T.cardiac High sensitivity method [Mass/Vol] 24 ng/L High <14 [facility] Troponin T.cardiac High sensitivity method [Mass/Vol] 24 ng/L High <14 [facility] Troponin T.cardiac High sensitivity method [Mass/Vol] 30 ng/L High <14 [facility] Type AND Screenon 04-18-2025 ABO and Rh group Nom (Bld) Blood group O Rh(D) positive Normal [facility] Comment on above: Order Comment: MAGGI W. PREVIOUS SPECIMEN REJECTED DUE TOWRONG DATE OF ON SPECIMEN. 04/18/25 Performed By: #### B TS ####[facility] [address] [place], [place], [id number] A1 CELL Not performed Normal [facility] Comment on above: Order Comment: A Result Comment: This specimen has been REJECTED due to Laboratory criteria:MisLabelled-INCORRECT DATE OF OF PATIENT ON FENWALBAND SPECIMEN.ED has been notified of need of recollection.04/18/251900 Performed By: #### L 503.6005, L100.0100, L501.2450, L500.4050, BTS ####[facility] [address] [place], [place], [id number] Ab SCREEN GEL Not performed Normal [facility] Comment on above: Order Comment: A Result Comment: This specimen has been REJECTED due to Laboratory criteria:MisLabelled-INCORRECT DATE OF OF PATIENT ON FENWALBAND SPECIMEN.ED has been notified of need of recollection.04/18/251900 Performed By: #### L 503.6005, L100.0100, L501.2450, L500.4050, BTS ####[facility] [address] [place], [address] ABO and Rh group Nom (Bld) Test Not Performed Normal [facility] Comment on above: Order Comment: A Result Comment: This specimen has been REJECTED due to Laboratory criteria:MisLabelled-INCORRECT DATE OF OF PATIENT ON FENWALBAND SPECIMEN.ED has been notified of need of recollection.04/18/251900 Performed By: #### L 503.6005, L100.0100, L501.2450, L500.4050, BTS ####[facility] [address] [place], [address] ANTI A Not performed Normal [facility] Comment on above: Order Comment: A Result Comment: This specimen has been REJECTED due to Laboratory criteria:MisLabelled-INCORRECT DATE OF OF PATIENT ON FENWALBAND SPECIMEN.ED has been notified of need of recollection.04/18/251900 Performed By: #### L 503.6005, L100.0100, L501.2450, L500.4050, BTS ####[facility] [address] [place], [address] ANTI B Not performed Normal [facility] Comment on above: Order Comment: A Result Comment: This specimen has been REJECTED due to Laboratory criteria:MisLabelled-INCORRECT DATE OF OF PATIENT ON FENWALBAND SPECIMEN.ED has been notified of need of recollection.04/18/251900 Performed By: #### L 503.6005, L100.0100, L501.2450, L500.4050, BTS ####[facility] [address] [place], [address] ANTI D Not performed Normal [facility] Comment on above: Order Comment: A Result Comment: This specimen has been REJECTED due to Laboratory criteria:MisLabelled-INCORRECT DATE OF OF PATIENT ON FENWALBAND SPECIMEN.ED has been notified of need of recollection.04/18/251900 Performed By: #### L 503.6005, L100.0100, L501.2450, L500.4050, BTS ####[facility] [address] [place], [address] B CELLS Not performed Normal [facility] Comment on above: Order Comment: A Result Comment: This specimen has been REJECTED due to Laboratory criteria:MisLabelled-INCORRECT DATE OF OF PATIENT ON FENWALBAND SPECIMEN.ED has been notified of need of recollection.04/18/251900 Performed By: #### L 503.6005, L100.0100, L501.2450, L500.4050, BTS ####[facility] [address] [place], [address] White blood cell (WBC) count Ordered By: Jeffy Willoughby on 04-18-2025 WBC (Bld) [#/Vol] 8.7 10*3/uL 4.4-11.0 [facility] Acute Abdomen Inc Cheston Acute Abdomen Inc Chest Normal [facility] Emergency Department Summary on 04-17-2025 Emergency Department Summary Normal [facility] Brain/Head without Contrasto n 04-11-2025 Brain/Head without Contrast Normal [facility] Emergency Department Summary on 04-11-2025 Emergency Department Summary Normal [facility] Sinus/Facial Boneon 04-11-20 Sinus/Facial Bone Normal [facility] Spine Cervical without Contr ason 04-11-2025 Spine Cervical without Contras Normal [facility] 37on 04-08-2025 37 Please call [place] [phone] to schedule the MRI brain before 05/03/25 - this is when the authorization for the MRI expires Normal [facility] Office Visiton 04-08-2025 Follow-up visit [id number] Estephania Yo 1955 F Date Provider Department Center 04/08/2025 [id number] [facility] None Family History Family Status - Relation Status Age at Mother Notes: brain tumor Father Notes: [place] of arteries Level of Service:96986 [place] OFFICE/OUTPATIENT ESTABLISHED LOW MDM 20 MIN Reason for Visit and Comments: Follow-up [756758] Multiple Sclerosis [162] - Normal [facility] Progress Noteon 04-08-2025 Progress Note Visit type: Establis [facility] Patient Reason for Visit: Follow-up and Multiple Sclerosis (/) Assessment and Plan 1. Multiple sclerosis (HCC) 2. Dysphasia Subjective HPI: Patient phoned in 3 days ago stating MS flare - affecting speech, swallowing, and VOSS. Went to [facility] about 1 week ago; according to [...] typical MS symptoms Received CT scan at [place] that she states was normal REVIEW- MS- [...] TSH VITAMIN B12: No results found for: [id number] No results found for: PHENYTOIN, PHENOBARB, VALPROATE, CBMZ No components found for: TOPIRA @RESULTINGLABINFO@ No results found for: LEVETIRACETA, FERRITIN, CRP, DENNIS, ANCA No results found for: CHRISTIANO, IMMUNOGLOBUL, OLIGOBANDS No results found for: [id number], HEPCAB No results found for: CRP, ANATITER, ANCA FERRITIN: No results found for: FERRITIN ---- ECG 12 lead SINUS BRADYCARDIA PROBABLE LEFT ATRIAL ABNORMALITY No previous ECG available for comparison Electronically Signed On 04-05-2023 7:42:10 EDT by Juvenal Benton @[facility]@ IMPRESSION and PLAN: Problem List Items Ad (more content not included)... [facility] 36on 04-06-2025 36 Patient has been scheduled [facility] 36 I have a 200pm openi ng today or see what I or Dr. Main has open this week. Thank you. [facility] 36on 04-05-2025 36 S: patient calling C AC d/t MS flare up B: Symptoms started 3 weeks ago A: states MS is flaring up. Issues with speech, trouble swallowing, headache. Seen in er a couple days ago at [facility]. States is having trouble walking is [...] be seen in office. May go to [place] today. Patient advised to call back with worsening of symptoms, concern or questions. Patient verbalized understanding. Reason for Disposition [1] Loss of speech or garbled speech AND [2] is a chronic symptom (recurrent or ongoing AND present > 4 weeks) Protocols used: Neurologic Rycayxq-ABLDG-MN Normal [facility] 12 Lead EKGon 04-02-2025 12 Lead EKG Normal [facility] Abdomen/Pelvis W IV Cont ONL Yon 04-02-2025 Abdomen/Pelvis W IV Cont ONLY Normal [facility] Absolute lymphocyte countOrd ered By: Nuno Grider on 04-02-2025 Lymphocytes Auto (Unsp spec) [#/Vol] 0.62 10*3/uL Low 0.83-4.51 [facility] Absolute neutrophil countOrd ered By: Nuno Grider on 04-02-2025 Neutrophils (Bld) [#/Vol] 4.7 10*3/uL 2.0-7.7 [facility] Anion gap in Serum or Plasma Ordered By: Nuno Grider on 04-02-2025 Anion gap [Moles/Vol] 13 mmol/L 04-02 [facility] Automated lymphocyte count a s percentage of total leukocytesOrdered By: Nuno Grider on 04-02-2025 Lymphocytes/100 WBC Auto (Unsp spec) 10.5 % Low 19-41 [facility] BUN/creatinine ratioOrdered By: Nuno Grider on 04-02-2025 Urea nitrogen/Creatinine [Mass ratio] 22.3 mg/mg High 10-20 [facility] Basophil percentageOrdered B y: Nuno Grider on 04-02-2025 Basophils/100 WBC (Bld) 0.5 % 0-1 [facility] Bilirubin, totalOrdered By: Nuno Grider on 04-02-2025 Bilirubin [Mass/Vol] 0.22 mg/dL 0.00-1.30 [facility] CBC W/Diff, Automatedon 03-19 Absolute Lymph 0.62 X10 3/uL Low 0.83-4.51 [facility] Comment on above: Performed By: #### L 501.2450, L100.0100, L500.4050 ####[facility] [address] [place], [address] Absolute Neut 4.7 X10 3/uL Normal 2.0-7.7 [facility] Comment on above: Performed By: #### L 501.2450, L100.0100, L500.4050 ####[facility] [address] [place], [address] Basophils/100 WBC (Bld) 0.5 % Normal 0-1 [facility] Comment on above: Performed By: #### L 501.2450, L100.0100, L500.4050 ####[facility] [address] [place], [address] Eosinophils/100 WBC (Bld) 1.5 % Normal 0-5 [facility] Comment on above: Performed By: #### L 501.2450, L100.0100, L500.4050 ####[facility] [address] [place], [address] Erythrocyte distribution width (RBC) [Ratio] 16.5 % High 11.6-14.6 [facility] Comment on above: Performed By: #### L 501.2450, L100.0100, L500.4050 ####[facility] [address] [place], [address] Hematocrit (Bld) [Volume fraction] 28.2 % Low 37-47 [facility] Comment on above: Performed By: #### L 501.2450, L100.0100, L500.4050 ####[facility] [address] [place], [address] Hemoglobin (Bld) [Mass/Vol] 8.8 g/dL Low 12.0-15.0 [facility] Comment on above: Performed By: #### L 501.2450, L100.0100, L500.4050 ####[facility] [address] [place], [address] IG% 0.500 Normal 0.0-0.9 [facility] Comment on above: Result Comment: IG% - Immature Granulocytes (promyelocytes, myelocytes andmetamyelocytes) > 1% indicates that a LEFT SHIFT is Present. Performed By: #### L 501.2450, L100.0100, L500.4050 ####[facility] [address] [place], [address] Lymphocytes/100 WBC (Bld) 10.5 % Low 19-41 [facility] Comment on above: Performed By: #### L 501.2450, L100.0100, L500.4050 ####[facility] [address] [place], [address] MCH (RBC) [Entitic mass] 25.8 pg Low 27.0-32.0 [facility] Comment on above: Performed By: #### L 501.2450, L100.0100, L500.4050 ####[facility] [address] [place], [address] MCHC (RBC) [Mass/Vol] 31.2 g/dL Low 32-36 [facility] Comment on above: Performed By: #### L 501.2450, L100.0100, L500.4050 ####[facility] [address] [place], [address] MCV (RBC) [Entitic vol] 82.7 fL Normal 81-99 [facility] Comment on above: Performed By: #### L 501.2450, L100.0100, L500.4050 ####[facility] [address] [place], [address] Monocytes/100 WBC (Bld) 6.6 % Normal 0-10 [facility] Comment on above: Performed By: #### L 501.2450, L100.0100, L500.4050 ####[facility] [address] [place], [address] Neutrophils/100 WBC (Bld) 80.4 % High 47-70 [facility] Comment on above: Performed By: #### L 501.2450, L100.0100, L500.4050 ####[facility] [address] [place], [address] Nucleated RBC (Bld) [#/Vol] 0 10*3/uL Normal 0-5 [facility] Comment on above: Performed By: #### L 501.2450, L100.0100, L500.4050 ####[facility] [address] [place], [address] Platelet mean volume (Bld) [Entitic vol] 9.7 fL Normal 6.2-12.0 [facility] Comment on above: Performed By: #### L 501.2450, L100.0100, L500.4050 ####[facility] [address] [place], [address] Platelets (Bld) [#/Vol] 154 10*3/uL Normal 150-450 [facility] Comment on above: Performed By: #### L 501.2450, L100.0100, L500.4050 ####[facility] [address] [place], [address] RBC (Bld) [#/Vol] 3.41 10*6/uL Low 4.2-5.4 [facility] Comment on above: Performed By: #### L 501.2450, L100.0100, L500.4050 ####[facility] [address] [place], [address] RDW SD 49.7 fl High 35.1-43.9 [facility] Comment on above: Performed By: #### L 501.2450, L100.0100, L500.4050 ####[facility] [address] [place], [address] WBC (Bld) [#/Vol] 5.9 10*3/uL Normal 4.4-11.0 [facility] Comment on above: Performed By: #### L 501.2450, L100.0100, L500.4050 ####[facility] [address] [place], [address] Carbon dioxide, total [Moles /volume] in Central venous bloodOrdered By: Nuno Grider on 04-02-2025 CO2 [Moles/Vol] 23.7 mmol/L 21.0-32.0 [facility] Chloride assayOrdered By: Jorge Grider on 04-02-2025 Chloride [Moles/Vol] 102 mmol/L 98-108 [facility] Comprehensive Metabolic Prof ilon 04-02-2025 Albumin [Mass/Vol] 4.2 g/dL Normal 3.4-4.8 [facility] Comment on above: Performed By: #### L 501.2450, L100.0100, L500.4050 ####[facility] [address] [place], [address] Albumin/Globulin [Mass ratio] 1.7 {ratio} Normal 0.9-2.4 [facility] Comment on above: Performed By: #### L 501.2450, L100.0100, L500.4050 ####[facility] [address] [place], [address] ALK PHOS 87 U/L Normal 35-104 [facility] Comment on above: Performed By: #### L 501.2450, L100.0100, L500.4050 ####[facility] [address] [place], [address] ALT [Catalytic activity/Vol] 14 U/L Normal <=34 [facility] Comment on above: Performed By: #### L 501.2450, L100.0100, L500.4050 ####[facility] [address] [place], [address] AST [Catalytic activity/Vol] 16 U/L Normal <=31 [facility] Comment on above: Performed By: #### L 501.2450, L100.0100, L500.4050 ####[facility] [address] [place], [address] Bilirubin [Mass/Vol] 0.22 mg/dL Normal 0.00-1.30 [facility] Comment on above: Performed By: #### L 501.2450, L100.0100, L500.4050 ####[facility] [address] [place], [address] BUN/CRE 22.3 RATIO High 10-20 [facility] Comment on above: Performed By: #### L 501.2450, L100.0100, L500.4050 ####[facility] [address] [place], [address] Calcium [Mass/Vol] 9.6 mg/dL Normal 7.6-11.0 [facility] Comment on above: Performed By: #### L 501.2450, L100.0100, L500.4050 ####[facility] [address] [place], [address] Chloride [Moles/Vol] 102 mmol/L Normal 98-108 [facility] Comment on above: Performed By: #### L 501.2450, L100.0100, L500.4050 ####[facility] [address] [place], [address] CO2 [Moles/Vol] 23.7 mmol/L Normal 21.0-32.0 [facility] Comment on above: Performed By: #### L 501.2450, L100.0100, L500.4050 ####[facility] [address] [place], [address] Creatinine [Mass/Vol] 1.23 mg/dL High 0.70-1.20 [facility] Comment on above: Performed By: #### L 501.2450, L100.0100, L500.4050 ####[facility] [address] [place], [address] ECRCL 34.53 ml/min Low 50-250 [facility] Comment on above: Performed By: #### L 501.2450, L100.0100, L500.4050 ####[facility] [address] [place], [address] GAP 13 Normal 5-15 [facility] Comment on above: Performed By: #### L 501.2450, L100.0100, L500.4050 ####[facility] [address] [place], [address] GFR/1.73 sq M.predicted among non-blacks MDRD (S/P/Bld) [Vol rate/Area] 47 mL/min/{1.73_m2} Low >60 [facility] Comment on above: Result Comment: mL/m in/1.73m2 CKD-EPI Creatinine Equation (2020) Performed By: #### L 501.2450, L100.0100, L500.4050 ####[facility] [address] [place], [address] Globulin (S) [Mass/Vol] 2.5 g/dL Normal 2.2-4.2 [facility] Comment on above: Performed By: #### L 501.2450, L100.0100, L500.4050 ####[facility] [address] [place], [address] Glucose [Mass/Vol] 129 mg/dL High 70-99 [facility] Comment on above: Performed By: #### L 501.2450, L100.0100, L500.4050 ####[facility] [address] [place], [address] Potassium [Moles/Vol] 4.0 mmol/L Normal 3.3-5.1 [facility] Comment on above: Performed By: #### L 501.2450, L100.0100, L500.4050 ####[facility] [address] [place], [address] Sodium [Moles/Vol] 138 mmol/L Normal 133-145 [facility] Comment on above: Performed By: #### L 501.2450, L100.0100, L500.4050 ####[facility] [address] [place], [address] T PROT 6.7 g/dL Normal 5.9-8.4 [facility] Comment on above: Performed By: #### L 501.2450, L100.0100, L500.4050 ####[facility] [address] [place], [address] Urea nitrogen [Mass/Vol] 27 mg/dL High 4-19 [facility] Comment on above: Performed By: #### L 501.2450, L100.0100, L500.4050 ####[facility] [address] [place], [address] Emergency Department Summary on 04-02-2025 Emergency Department Summary Normal [facility] Eosinophil percentageOrdered By: Nuno Grider on 04-02-2025 Eosinophils/100 WBC (Bld) 1.5 % 0-5 [facility] Erythrocyte distribution wid th ratioOrdered By: Nuno Grider on 04-02-2025 Erythrocyte distribution width (RBC) [Ratio] 16.5 % High 11.6-14.6 [facility] Erythrocyte distribution wid th standard deviationOrdered By: Nuno Grider on 04-02-2025 Erythrocyte distribution width (RBC) [Ratio] 49.7 fl High 35.1-43.9 [facility] Glomerular filtration rate ( GFR) estimation/1.73 sq m using serum, plasma, or whole bOrdered By: Nuno Grider on 04-02-2025 GFR/1.73 sq M.predicted among non-blacks MDRD (S/P/Bld) [Vol rate/Area] 47 mL/min/{1.73_m2} Low >60 [facility] Comment on above: mL/min/1.73m2 CKD-EP I Creatinine Equation (2020) Hematocrit Auto (Bld) [Volum e fraction]Ordered By: Nuno Grider on 04-02-2025 Hematocrit (Bld) [Volume fraction] 28.2 % Low 37-47 [facility] Hemoglobin measurementOrdere d By: Nuno Grider on 04-02-2025 Hemoglobin (Bld) [Mass/Vol] 8.8 g/dL Low 12.0-15.0 [facility] Immature granulocytes/100 WB C Auto (Bld)Ordered By: Nuno Grider on 04-02-2025 Immature granulocytes/100 WBC (Bld) 0.500 % 0.0-0.9 [facility] Comment on above: IG% - Immature Granu locytes (promyelocytes, myelocytes and metamyelocytes) > 1% indicates that a LEFT SHIFT is Present. Laboratory - Chemistry and C hemistry - challengeOrdered By: Nuno Grider on 04-02-2025 AST [Catalytic activity/Vol] 16 U/L <32 [facility] Lipaseon 04-02-2025 Lipase [Catalytic activity/Vol] 23 U/L Normal 13-75 [facility] Comment on above: Result Comment: Stacy pringle note:LIPASE revised reference range effective 23.New Lipase methodology. Expected to produce lower valuesthan the previous assay method.NEW Reference Range: 13 - 75 U/L Performed By: #### L 501.2450, L100.0100, L500.4050 ####[facility] [address] [place], [address] Lipase measurementOrdered By : Nuno Grider on 04-02-2025 Lipase [Catalytic activity/Vol] 23 U/L 13-75 [facility] Comment on above: Please note:LIPASE r evised reference range effective 23. New Lipase methodology. Expected to produce lower values than the previous assay method. NEW Reference Range: 13 - 75 U/L MCV (mean corpuscular volume ) determinationOrdered By: Nuno Grider on 04-02-2025 MCV (RBC) [Entitic vol] 82.7 fL 81-99 [facility] Mean corpuscular hemoglobin (MCH) determinationOrdered By: Nuno Grider on 04-02-2025 MCH (RBC) [Entitic mass] 25.8 pg Low 27.0-32.0 [facility] Mean corpuscular hemoglobin concentration (MCHC) determinationOrdered By: Nuno Grider on 04-02-2025 MCHC (RBC) [Mass/Vol] 31.2 g/dL Low 32-36 [facility] Mean platelet volume determi nationOrdered By: Nuno Grider on 04-02-2025 Platelet mean volume (Bld) [Entitic vol] 9.7 fL 6.2-12.0 [facility] Monocyte percentageOrdered B y: Nuno Grider on 04-02-2025 Monocytes/100 WBC (Bld) 6.6 % 0-10 [facility] Neutrophil percentageOrdered By: Nuno Grider on 04-02-2025 Neutrophils/100 WBC (Bld) 80.4 % High 47-70 [facility] No Panel InformationOrdered By: Nuno Grider on 04-02-2025 16 U/L <32 [facility] Nucleated red blood cell per centageOrdered By: Nuno Grider on 04-02-2025 Nucleated RBC/100 WBC (Bld) [Ratio] 0 % 0-5 [facility] Platelet countOrdered By: Jorge Grider on 04-02-2025 Platelets (Bld) [#/Vol] 154 10*3/uL 150-450 [facility] Potassium measurement (mass/ volume)Ordered By: Nuno Grider on 04-02-2025 Potassium (Unsp spec) [Mass/Vol] 4.0 mmol/L 3.3-5.1 [facility] RBC Auto (Bld) [#/Vol]Ordere d By: Nuno Grider on 04-02-2025 RBC (Bld) [#/Vol] 3.41 10*6/uL Low 4.2-5.4 [facility] Serum creatinine measurement (mass/volume)Ordered By: Nuno Grider on 04-02-2025 Creatinine [Mass/Vol] 1.23 mg/dL High 0.70-1.20 [facility] Serum globulin measurementOr dered By: Nuno Grider on 04-02-2025 Globulin (S) [Mass/Vol] 2.5 g/dL 2.2-4.2 [facility] Serum glucose measurement (m ass/volume)Ordered By: Nuno Grider on 04-02-2025 Glucose [Mass/Vol] 129 mg/dL High 70-99 [facility] Serum or plasma alanine pizarro otransferase (ALT) measurementOrdered By: Nuno Grider on 04-02-2025 ALT [Catalytic activity/Vol] 14 U/L <35 [facility] Serum or plasma albumin stefania urement (mass/volume)Ordered By: Nuno Grider on 04-02-2025 Albumin [Mass/Vol] 4.2 g/dL 3.4-4.8 [facility] Serum or plasma albumin/glob ulin mass ratioOrdered By: Nuno Grider on 04-02-2025 Albumin/Globulin [Mass ratio] 1.7 {ratio} 0.9-2.4 [facility] Serum or plasma alkaline anthony sphatase measurementOrdered By: Nuno Grider on 04-02-2025 ALP [Catalytic activity/Vol] 87 U/L 35-104 [facility] Serum or plasma calcium stefania urement (mass/volume)Ordered By: Nuno Grider on 04-02-2025 Calcium [Mass/Vol] 9.6 mg/dL 7.6-11.0 [facility] Serum or plasma urea nitroge n measurement (mass/volume)Ordered By: Nuno Grider on 04-02-2025 Urea nitrogen [Mass/Vol] 27 mg/dL High 4-19 [facility] Sodium levelOrdered By: Nuno Grider on 04-02-2025 Sodium [Moles/Vol] 138 mmol/L 133-145 [facility] Total proteinOrdered By: Clari Grider on 04-02-2025 Protein [Mass/Vol] 6.7 g/dL 5.9-8.4 [facility] Urinalysis, Completeon 04-02 BACTERIA Normal None Seen [facility] Comment on above: Order Comment: THEODORE KAMARA TO SPECIFY Result Comment: @PT DEPARTED ER, OK TO CANCEL BY ELISEO Performed By: #### L 400.0001 ####[facility] [address] [place], [address] BILIRUBIN URINE Normal Negative [facility] Comment on above: Order Comment: THEODORE CTMARGARITO TO SPECIFY Result Comment: @PT DEPARTED ER, OK TO CANCEL BY ELISEO Performed By: #### L 400.0001 ####[facility] [address] [place], [address] Clarity (U) Normal Clear [facility] Comment on above: Order Comment: COLLE CTOR TO SPECIFY Result Comment: @PT DEPARTED ER, OK TO CANCEL BY MHOSTETTLER Performed By: #### L 400.0001 ####[facility] [address] [place], [address] Color (U) Normal Yellow [facility] Comment on above: Order Comment: COLLE CTOR TO SPECIFY Result Comment: @PT DEPARTED ER, OK TO CANCEL BY MHOSTETTLER Performed By: #### L 400.0001 ####[facility] [address] [place], [address] EPI,SQUAMOUS Normal 5-10 [facility] Comment on above: Order Comment: COLLE CTOR TO SPECIFY Result Comment: @PT DEPARTED ER, OK TO CANCEL BY MHOSTETTLER Performed By: #### L 400.0001 ####[facility] [address] [place], [address] GLUCOSE, UR Normal Normal [facility] Comment on above: Order Comment: COLLE CTOR TO SPECIFY Result Comment: @PT DEPARTED ER, OK TO CANCEL BY MHOSTETTLER Performed By: #### L 400.0001 ####[facility] [address] [place], [address] KETONE UR Normal Negative [facility] Comment on above: Order Comment: COLLE CTOR TO SPECIFY Result Comment: @PT DEPARTED ER, OK TO CANCEL BY MHOSTETTLER Performed By: #### L 400.0001 ####[facility] [address] [place], [address] LEUK ESTERASE Normal Negative [facility] Comment on above: Order Comment: COLLE CTOR TO SPECIFY Result Comment: @PT DEPARTED ER, OK TO CANCEL BY MHOSTETTLER Performed By: #### L 400.0001 ####[facility] [address] [place], [address] Mucus Ql (Urine sed) Normal [facility] Comment on above: Order Comment: COLLE CTOR TO SPECIFY Result Comment: @PT DEPARTED ER, OK TO CANCEL BY MHOSTETTLER Performed By: #### L 400.0001 ####[facility] [address] [place], [address] Nitrite Ql (U) Normal Negative [facility] Comment on above: Order Comment: COLLE CTOR TO SPECIFY Result Comment: @PT DEPARTED ER, OK TO CANCEL BY MHOSTETTLER Performed By: #### L 400.0001 ####[facility] [address] [place], [address] OCCULT BLOOD-UR Normal Negative [facility] Comment on above: Order Comment: COLLE CTOR TO SPECIFY Result Comment: @PT DEPARTED ER, OK TO CANCEL BY MHOSTETTLER Performed By: #### L 400.0001 ####[facility] [address] [place], [address] pH UR Normal 5.0 - 8.0 [facility] Comment on above: Order Comment: THEODORE CTOR TO SPECIFY Result Comment: @PT DEPARTED ER, OK TO CANCEL BY MHOSTETTLER Performed By: #### L 400.0001 ####[facility] [address] [place], [address] PROT DIPSTX Normal Negative [facility] Comment on above: Order Comment: COLLE CTOR TO SPECIFY Result Comment: @PT DEPARTED ER, OK TO CANCEL BY MHOSTETTLER Performed By: #### L 400.0001 ####[facility] [address] [place], [address] RBC Normal 0-5 [facility] Comment on above: Order Comment: COLLE CTOR TO SPECIFY Result Comment: @PT DEPARTED ER, OK TO CANCEL BY MHOSTETTLER Performed By: #### L 400.0001 ####[facility] [address] [place], [address] SP.GR. DIPSTX Normal 1.002-1.03 0 [facility] Comment on above: Order Comment: COLLE CTOR TO SPECIFY Result Comment: @PT DEPARTED ER, OK TO CANCEL BY MHOSTETTLER Performed By: #### L 400.0001 ####[facility] [address] [place], [address] UR Preservative Normal [facility] Comment on above: Order Comment: COLLE CTOR TO SPECIFY Result Comment: @PT DEPARTED ER, OK TO CANCEL BY MHOSTETTLER Performed By: #### L 400.0001 ####[facility] [address] [place], [address] UROBILI Normal Normal [facility] Comment on above: Order Comment: COLLE CTOR TO SPECIFY Result Comment: @PT DEPARTED ER, OK TO CANCEL BY MHOSTETTLER Performed By: #### L 400.0001 ####[facility] [address] [place], [address] WBC Normal 0-5 [facility] Comment on above: Order Comment: COLLE CTOR TO SPECIFY Result Comment: @PT DEPARTED ER, OK TO CANCEL BY MHOSTETTLER Performed By: #### L 400.0001 ####[facility] [address] [place], [address] White blood cell (WBC) count Ordered By: Nuno Grider on 04-02-2025 WBC (Bld) [#/Vol] 5.9 10*3/uL 4.4-11.0 [facility] Echo Transesophageal (GREGORIO)on 03-19-2025 Echo Transesophageal (GREGORIO) Normal [facility] 36on 03-09-2025 36 Order re faxed to [phone] [facility]. [facility] 36 Name of caller: Brice aragon Contact phone number: [phone] Relationship to Patient: [facility] Provider: AURORA Lynn Practice: [facility] Neurology Nena Chief Complaint/Reason for Call: Kody called in requesting patient's MRI order be faxed over to them at fax # [phone]. Please be advised Best time of day caller can be reached: Any Patient advised that office/PCP has 24-48 business hours to return their call: N/A [facility] 36on 03-04-2025 36 Call to patient. Renuka domingo notified. Patient Stated will scheduled testing. [facility] 36 We have been unable to reach your patient to schedule their testing. Test Name: EEG 1st Attempt: 03/04 pt stated this will be done at [facility] Office Visiton 03-04-2025 Follow-up visit [id number] Estephania Yo 1955 F Date Provider Department Center 03/04/2025 [id number] LYNN [facility] None Family History Family Status - Relation Status Age at Mother Notes: brain tumor Father Notes: [place] of arteries Level of Service:68314 [place] OFFICE/OUTPATIENT ESTABLISHED LOW MDM 20 MIN Reason for Visit and Comments: Follow-up [701873] Multiple Sclerosis [162] [facility] Progress Noteon 03-04-2025 Progress Note Visit type: [...] daily., Disp: 9 (more content not included)... [place] [address]on 03-02-2025 36 Refused as it has be en over a year since her last visit. Will refill at her upcoming appt. [place] [address] Last ov- 12/14/23 Next ov- 03/04/25 [facility] 36on 02-25-2025 36 patient has been not ified of providers message. Appointment has been scheduled [place] [address] Patient's last offic e visit was over a year ago; she needs a follow up before I can order more refills. Thank you. [place] [address]on 02-24-2025 36 Forwarding to [facility] er for review and advice. Called pharmacy spoke with personnel technician who stated patient picked up refill on January 18. [place] [address] Medication name: staci lofen (Lioresal) 20 MG [...] to picking up the medication: Yes Normal [facility] Cardiology Visit Reporton Cardiology Visit Report Normal [facility] Thoracic Spine 2 Viewson Thoracic Spine 2 Views Normal [facility] Discharge Instructionon 12-21 Discharge Instruction Normal [facility] Activated partial thrombopla stin time (aPTT) in platelet poor plasma by coagulation aOrdered By: Sommer Resendiz on 01-12-2025 aPTT Coag (PPP) [Time] 76.6 s High 24.1-36.2 [facility] Partial Thromboplast Timeon 01-12-2025 aPTT Coag (Bld) [Time] 76.6 s High 24.1-36.2 [facility] Comment on above: Performed By: #### L 300.4310 ####[facility] [address] [facility] [place], [place], [id number] aPTT Coag (Bld) [Time] 60.2 s High 24.1-36.2 [facility] Comment on above: Order Comment: Comme nts: time sensitive hep gtt Performed By: #### L 300.4310 ####[facility] [address] [facility] [place], [place], [id number] Absolute lymphocyte countOrd ered By: Sommer Resendiz on 01-11-2025 Lymphocytes Auto (Unsp spec) [#/Vol] 1.07 10*3/uL 0.83-4.51 [facility] Absolute neutrophil countOrd ered By: Sommer Resendiz on 01-11-2025 Neutrophils (Bld) [#/Vol] 3.6 10*3/uL 2.0-7.7 [facility] Albumin to globulin ratioOrd ered By: Sommer Resendiz on 01-11-2025 Albumin/Globulin [Mass ratio] 0.8 {ratio} Low 0.9-2.4 [facility] Automated lymphocyte count a s percentage of total leukocytesOrdered By: Sommer Resendiz on 01-11-2025 Lymphocytes/100 WBC Auto (Unsp spec) 20.5 % 19 [facility] Basophil percentageOrdered B y: Sommer Resendiz on 01-11-2025 Basophils/100 WBC (Bld) 0.4 % 0-1 [facility] Bilirubin, totalOrdered By: Sommer Resendiz on 01-11-2025 Bilirubin [Mass/Vol] 0.30 mg/dL 0.20-1.00 [facility] Comment on above: For patients on eltr ombopag therapy, use of Dimension Buda TBIL is not recommended. Blood urea nitrogen (BUN)/cr eatinine ratioOrdered By: Sommer Resendiz on 01-11-2025 Urea nitrogen/Creatinine [Mass ratio] 20.8 mg/mg High 10-20 [facility] CBC W/Diff, Automatedon 12-21 Absolute Lymph 1.07 X10 3/uL Normal 0.83-4.51 [facility] Comment on above: Performed By: #### L 501.4020, L500.4050, L100.0100 ####[facility] [address] [place], [address] Absolute Neut 3.6 X10 3/uL Normal 2.0-7.7 [facility] Comment on above: Performed By: #### L 501.4020, L500.4050, L100.0100 ####[facility] [address] [place], [address] Basophils/100 WBC (Bld) 0.4 % Normal 0-1 [facility] Comment on above: Performed By: #### L 501.4020, L500.4050, L100.0100 ####[facility] [address] [place], [address] Eosinophils/100 WBC (Bld) 1.0 % Normal 0-5 [facility] Comment on above: Performed By: #### L 501.4020, L500.4050, L100.0100 ####[facility] [address] [place], [address] Erythrocyte distribution width (RBC) [Ratio] 14.9 % High 11.6-14.6 [facility] Comment on above: Performed By: #### L 501.4020, L500.4050, L100.0100 ####[facility] [address] [place], [address] Hematocrit (Bld) [Volume fraction] 39.1 % Normal 37-47 [facility] Comment on above: Performed By: #### L 501.4020, L500.4050, L100.0100 ####[facility] [address] [place], [address] Hemoglobin (Bld) [Mass/Vol] 12.5 g/dL Normal 12.0-15.0 [facility] Comment on above: Performed By: #### L 501.4020, L500.4050, L100.0100 ####[facility] [address] [place], [address] IG% 0.400 Normal 0.0-0.9 [facility] Comment on above: Result Comment: IG% - Immature Granulocytes (promyelocytes, myelocytes andmetamyelocytes) > 1% indicates that a LEFT SHIFT is Present. Performed By: #### L 501.4020, L500.4050, L100.0100 ####[facility] [address] [place], [address] Lymphocytes/100 WBC (Bld) 20.5 % Normal 19-41 [facility] Comment on above: Performed By: #### L 501.4020, L500.4050, L100.0100 ####[facility] [address] [place], [address] MCH (RBC) [Entitic mass] 26.4 pg Low 27.0-32.0 [facility] Comment on above: Performed By: #### L 501.4020, L500.4050, L100.0100 ####[facility] [address] [place], [address] MCHC (RBC) [Mass/Vol] 32.0 g/dL Normal 32-36 [facility] Comment on above: Performed By: #### L 501.4020, L500.4050, L100.0100 ####[facility] [address] [place], [address] MCV (RBC) [Entitic vol] 82.7 fL Normal 81-99 [facility] Comment on above: Performed By: #### L 501.4020, L500.4050, L100.0100 ####[facility] [address] [place], [address] Monocytes/100 WBC (Bld) 9.4 % Normal 0-10 [facility] Comment on above: Performed By: #### L 501.4020, L500.4050, L100.0100 ####[facility] [address] [place], [address] Neutrophils/100 WBC (Bld) 68.3 % Normal 47-70 [facility] Comment on above: Performed By: #### L 501.4020, L500.4050, L100.0100 ####[facility] [address] [place], [address] Nucleated RBC (Bld) [#/Vol] 0 10*3/uL Normal 0-5 [facility] Comment on above: Performed By: #### L 501.4020, L500.4050, L100.0100 ####[facility] [address] [place], [address] Platelet mean volume (Bld) [Entitic vol] 10.4 fL Normal 6.2-12.0 [facility] Comment on above: Performed By: #### L 501.4020, L500.4050, L100.0100 ####[facility] [address] [place], [address] Platelets (Bld) [#/Vol] 158 10*3/uL Normal 150-450 [facility] Comment on above: Performed By: #### L 501.4020, L500.4050, L100.0100 ####[facility] [address] [place], [address] RBC (Bld) [#/Vol] 4.73 10*6/uL Normal 4.2-5.4 [facility] Comment on above: Performed By: #### L 501.4020, L500.4050, L100.0100 ####[facility] [address] [place], [address] RDW SD 45.2 fl High 35.1-43.9 [facility] Comment on above: Performed By: #### L 501.4020, L500.4050, L100.0100 ####[facility] [address] [place], [address] WBC (Bld) [#/Vol] 5.2 10*3/uL Normal 4.4-11.0 [facility] Comment on above: Performed By: #### L 501.4020, L500.4050, L100.0100 ####[facility] [address] [place], [address] Carbon dioxide measurementOr dered By: Sommer Resendiz on 01-11-2025 CO2 [Moles/Vol] 25.0 mmol/L 21.0-32.0 [facility] Chloride measurementOrdered By: Sommer Resendiz on 01-11-2025 Chloride [Moles/Vol] 101 mmol/L 98-107 [facility] Comprehensive Metabolic Prof ilon 01-11-2025 Albumin [Mass/Vol] 3.4 g/dL Normal 3.2-5.0 [facility] Comment on above: Order Comment: Comme nts: SPECIMEN #2'TROP' Serial specimen #1, #2 or #3: 2 Performed By: #### L 501.4020, L500.4050, L100.0100 ####[facility] [address] [place], [address] Albumin/Globulin [Mass ratio] 0.8 {ratio} Low 0.9-2.4 [facility] Comment on above: Order Comment: Comme nts: SPECIMEN #2'TROP' Serial specimen #1, #2 or #3: 2 Performed By: #### L 501.4020, L500.4050, L100.0100 ####[facility] [address] [place], [address] ALK P 182 U/L High 45-117 [facility] Comment on above: Order Comment: Comme nts: SPECIMEN #2'TROP' Serial specimen #1, #2 or #3: 2 Performed By: #### L 501.4020, L500.4050, L100.0100 ####[facility] [address] [place], [address] ALT [Catalytic activity/Vol] 22 U/L Normal 13-56 [facility] Comment on above: Order Comment: Comme nts: SPECIMEN #2'TROP' Serial specimen #1, #2 or #3: 2 Performed By: #### L 501.4020, L500.4050, L100.0100 ####[facility] [address] [place], [address] AST [Catalytic activity/Vol] 27 U/L Normal 15-37 [facility] Comment on above: Order Comment: Comme nts: SPECIMEN #2'TROP' Serial specimen #1, #2 or #3: 2 Performed By: #### L 501.4020, L500.4050, L100.0100 ####[facility] [address] [place], [address] Bilirubin [Mass/Vol] 0.30 mg/dL Normal 0.20-1.00 [facility] Comment on above: Order Comment: Comme nts: SPECIMEN #2'TROP' Serial specimen #1, #2 or #3: 2 Result Comment: For patients on eltrombopag therapy, use of Dimension Buda TBIL is not recommended. Performed By: #### L 501.4020, L500.4050, L100.0100 ####[facility] [address] [place], [address] BUN/CRE 20.8 RATIO High 10-20 [facility] Comment on above: Order Comment: Comme nts: SPECIMEN #2'TROP' Serial specimen #1, #2 or #3: 2 Performed By: #### L 501.4020, L500.4050, L100.0100 ####[facility] [address] [place], [address] CA,Total 9.3 mg/dL Normal 8.5-10.1 [facility] Comment on above: Order Comment: Comme nts: SPECIMEN #2'TROP' Serial specimen #1, #2 or #3: 2 Performed By: #### L 501.4020, L500.4050, L100.0100 ####[facility] [address] [place], [address] Chloride [Moles/Vol] 101 mmol/L Normal 98-107 [facility] [facility] Comment on above: Order Comment: Comme nts: SPECIMEN #2'TROP' Serial specimen #1, #2 or #3: 2 Performed By: #### L 501.4020, L500.4050, L100.0100 ####[facility] [address] [place], [address] CO2 [Moles/Vol] 25.0 mmol/L Normal 21.0-32.0 [facility] Comment on above: Order Comment: Comme nts: SPECIMEN #2'TROP' Serial specimen #1, #2 or #3: 2 Performed By: #### L 501.4020, L500.4050, L100.0100 ####[facility] [address] [place], [address] Creatinine [Mass/Vol] 1.06 mg/dL High 0.55-1.02 [facility] Comment on above: Order Comment: Comme nts: SPECIMEN #2'TROP' Serial specimen #1, #2 or #3: 2 Result Comment: The validity of the calculated GFR GFRAA in patients over70 years has not been determined. Clinical correlation isessential. Performed By: #### L 501.4020, L500.4050, L100.0100 ####[facility] [address] [place], [address] ECRCL 39.37 ml/min Normal [facility] Comment on above: Order Comment: Comme nts: SPECIMEN #2'TROP' Serial specimen #1, #2 or #3: 2 Performed By: #### L 501.4020, L500.4050, L100.0100 ####[facility] [address] [place], [address] EST GFR - AA 66 mL/min Normal >60 [facility] Comment on above: Order Comment: Comme nts: SPECIMEN #2'TROP' Serial specimen #1, #2 or #3: 2 Result Comment: Afri can Macanese GFR Calc Performed By: #### L 501.4020, L500.4050, L100.0100 ####[facility] [address] [place], [address] GAP 8 Normal 5-15 [facility] Comment on above: Order Comment: Comme nts: SPECIMEN #2'TROP' Serial specimen #1, #2 or #3: 2 Performed By: #### L 501.4020, L500.4050, L100.0100 ####[facility] [address] [place] [place], [address] GFR/1.73 sq M.predicted among non-blacks MDRD (S/P/Bld) [Vol rate/Area] 54 mL/min/{1.73_m2} Low >60 [facility] Comment on above: Order Comment: Comme nts: SPECIMEN #2'TROP' Serial specimen #1, #2 or #3: 2 Result Comment: Non- GFR Calc Performed By: #### L 501.4020, L500.4050, L100.0100 ####[facility] [address] [place], [address] Globulin (S) [Mass/Vol] 4.0 g/dL Normal 2.2-4.2 [facility] Comment on above: Order Comment: Comme nts: SPECIMEN #2'TROP' Serial specimen #1, #2 or #3: 2 Performed By: #### L 501.4020, L500.4050, L100.0100 ####[facility] [address] [place], [address] Glucose [Mass/Vol] 106 mg/dL Normal 74-106 [facility] Comment on above: Order Comment: Comme nts: SPECIMEN #2'TROP' Serial specimen #1, #2 or #3: 2 Result Comment: Fast ing Glucose result from 100 to 125 mg/dLsuggests IMPAIRED HOMEOSTASIS per A.D.A. criteria. Performed By: #### L 501.4020, L500.4050, L100.0100 ####[facility] [address] [place], [address] Potassium [Moles/Vol] 4.2 mmol/L Normal 3.5-5.1 [facility] Comment on above: Order Comment: Comme nts: SPECIMEN #2'TROP' Serial specimen #1, #2 or #3: 2 Performed By: #### L 501.4020, L500.4050, L100.0100 ####[facility] [address] [place], [address] Sodium [Moles/Vol] 135 mmol/L Low 136-145 [facility] Comment on above: Order Comment: Comme nts: SPECIMEN #2'TROP' Serial specimen #1, #2 or #3: 2 Performed By: #### L 501.4020, L500.4050, L100.0100 ####[facility] [address] [place], [address] T PROT 7.4 g/dL Normal 6.4-8.2 [facility] Comment on above: Order Comment: Comme nts: SPECIMEN #2'TROP' Serial specimen #1, #2 or #3: 2 Performed By: #### L 501.4020, L500.4050, L100.0100 ####[facility] [address] [place], [address] Urea nitrogen [Mass/Vol] 22 mg/dL High 7-18 [facility] Comment on above: Order Comment: Comme nts: SPECIMEN #2'TROP' Serial specimen #1, #2 or #3: 2 Performed By: #### L 501.4020, L500.4050, L100.0100 ####[facility] [address] [place], [address] Consultation - Cardiologyon 01-11-2025 Consultation - Cardiology Normal [facility] Echo Completeon 01-11-2025 Echo Complete Normal [facility] Eosinophil percentageOrdered By: White on 01-11-2025 Eosinophils/100 WBC (Bld) 1.0 % 0-5 [facility] Erythrocyte distribution wid th ratioOrdered By: White on 01-11-2025 Erythrocyte distribution width (RBC) [Ratio] 14.9 % High 11.6-14.6 [facility] Erythrocyte distribution wid th standard deviationOrdered By: White on 01-11-2025 Erythrocyte distribution width (RBC) [Ratio] 45.2 fl High 35.1-43.9 [facility] Glomerular filtration rate ( GFR) estimationOrdered By: Sommer Resendiz on 01-11-2025 GFR/1.73 sq M.predicted among non-blacks MDRD (S/P/Bld) [Vol rate/Area] 54 mL/min/{1.73_m2} Low >60 [facility] Comment on above: Non- GFR Calc Glucose measurementOrdered B y: Sommer Resendiz on 01-11-2025 Glucose [Mass/Vol] 106 mg/dL 74-106 [facility] Comment on above: Fasting Glucose resu lt from 100 to 125 mg/dL suggests IMPAIRED HOMEOSTASIS per A.D.A. criteria. Hematocrit Auto (Bld) [Volum e fraction]Ordered By: Sommer Resendiz on 01-11-2025 Hematocrit (Bld) [Volume fraction] 39.1 % 37-47 [facility] Hemoglobin measurementOrdere d By: Sommer Resendiz on 01-11-2025 Hemoglobin (Bld) [Mass/Vol] 12.5 g/dL 12.0-15.0 [facility] Immature granulocytes/100 WB C Auto (Bld)Ordered By: Sommer Resendiz on 01-11-2025 Immature granulocytes/100 WBC (Bld) 0.400 % 0.0-0.9 [facility] Comment on above: IG% - Immature Granu locytes (promyelocytes, myelocytes and metamyelocytes) > 1% indicates that a LEFT SHIFT is Present. International normalized rat io (INR) calculationOrdered By: Benjy Flores on 01-11-2025 INR Coag (Bld) [Relative time] 1.0 {INR} [facility] L501.4020on 01-11-2025 TROPONIN-I HS 1688 pg/mL Invalid Interpretation Code 3.0-54.0 [facility] Comment on above: Order Comment: Comme nts: SPECIMEN #3'TROP' Serial specimen #1, #2 or #3: 3 Result Comment: Crit ical Result(s) Called at: 10:12:22 01/11/2025 by:Joana Salazar to Fatou. Results read back by same. Please Note: New Test Units and Gender Specific Reference Ranges. For more information see Policy Stat Procedure [place] High Sensitivity Troponin (TNIH) and attachments. Performed By: #### L 501.4020 ####[facility] [address] [place], [address] TROPONIN-I HS 1841 pg/mL Invalid Interpretation Code 3.0-54.0 [facility] Comment on above: Order Comment: Comme nts: SPECIMEN #2'TROP' Serial specimen #1, #2 or #3: 2 Result Comment: Crit ical Result(s) Called at: 06:12:52 01/11/2025 by:Joana Salazar to Loida. Results read back by same. Please Note: New Test Units and Gender Specific Reference Ranges. For more information see Policy Stat Procedure [place] High Sensitivity Troponin (TNIH) and attachments. Performed By: #### L 501.4020, L500.4050, L100.0100 ####[facility] [address] [place], [address] TROPONIN-I HS 1798 pg/mL Invalid Interpretation Code 3.0-54.0 [facility] Comment on above: Order Comment: 'TROP ' Serial specimen #1, #2 or #3: 1 Result Comment: Crit ical Result(s) Called at: 04:22:19 01/11/2025 by:LORENA KENDALL TO EVERT FAY. Results read back by same. Please Note: New Test Units and Gender Specific Reference Ranges. For more information see Policy Stat Procedure [place] High Sensitivity Troponin (TNIH) and attachments. Performed By: #### L 501.4020 ####[facility] [address] [place], [address] Laboratory - Chemistry and C hemistry - challengeOrdered By: Sommer Resendiz on 01-11-2025 AST [Catalytic activity/Vol] 27 U/L 15-37 [facility] M100.019on 01-11-2025 M100.019 Negative Normal [facility] Comment on above: Performed By: #### M 100.019 ####[facility] [address] [place], [address] MCV (mean corpuscular volume ) determinationOrdered By: Sommer White on 01-11-2025 MCV (RBC) [Entitic vol] 82.7 fL 81-99 [facility] Magnesiumon 01-11-2025 Magnesium [Mass/Vol] 2.0 mg/dL Normal 1.6-2.6 [facility] Comment on above: Order Comment: Comme nts: may add to ED labs Performed By: #### L 309.5204 ####[facility] [address] [place], [address] Mean corpuscular hemoglobin (MCH) determinationOrdered By: [facility] White on 01-11-2025 MCH (RBC) [Entitic mass] 26.4 pg Low 27.0-32.0 [facility] Mean corpuscular hemoglobin concentration (MCHC) determinationOrdered By: Sommer White on 01-11-2025 MCHC (RBC) [Mass/Vol] 32.0 g/dL 32-36 [facility] Mean platelet volume determi nationOrdered By: [facility] White on 01-11-2025 Platelet mean volume (Bld) [Entitic vol] 10.4 fL 6.2-12.0 [facility] Monocyte percentageOrdered B y: Sommer White on 01-11-2025 Monocytes/100 WBC (Bld) 9.4 % 0-10 [facility] Neutrophil percentageOrdered By: [facility] White on 01-11-2025 Neutrophils/100 WBC (Bld) 68.3 % 47-70 [facility] No Panel InformationOrdered By: [facility] White on 01-11-2025 27 U/L 15-37 [facility] Nucleated red blood cell per centageOrdered By: [facility] White on 01-11-2025 Nucleated RBC/100 WBC (Bld) [Ratio] 0 % 0-5 [facility] Partial Thromboplast Timeon 01-11-2025 aPTT Coag (Bld) [Time] 64.4 s High 24.1-36.2 [facility] Comment on above: Order Comment: Comme nts: time sensitive hep gtt Performed By: #### L 898.4311 ####[facility] [address] [place], [address] aPTT Coag (Bld) [Time] 76.9 s High 24.1-36.2 [facility] Comment on above: Performed By: #### L 300.4310 ####[facility] [address] [place], [address] aPTT Coag (Bld) [Time] 53.2 s High 24.1-36.2 [facility] Comment on above: Order Comment: Comme nts: heparin gtt Performed By: #### L 300.4310 ####[facility] [address] [place], [address] aPTT Coag (Bld) [Time] 28.3 s Normal 24.1-36.2 [facility] Comment on above: Performed By: #### L 300.3900, L300.4310 ####[facility] [address] [place], [address] Platelet countOrdered By: Lissa Resendiz on 01-11-2025 Platelets (Bld) [#/Vol] 158 10*3/uL 150-450 [facility] Potassium measurementOrdered By: Sommer Resendiz on 01-11-2025 Potassium [Moles/Vol] 4.2 mmol/L 3.5-5.1 [facility] Prothrombin Time w/INRon INR Coag (PPP) [Relative time] 1.0 {INR} Normal [facility] Comment on above: Performed By: #### L 300.3900, L300.4310 ####[facility] [address] [place], [address] PT Coag (PPP) [Time] 12.9 s Normal 11.7-14.9 [facility] Comment on above: Performed By: #### L 300.3900, L300.4310 ####[facility] [address] [place], [address] Prothrombin timeOrdered By: Benjy Flores on 01-11-2025 PT Coag (PPP) [Time] 12.9 s 11.7-14.9 [facility] RBC Auto (Bld) [#/Vol]Ordere d By: Sommer Resendiz on 01-11-2025 RBC (Bld) [#/Vol] 4.73 10*6/uL 4.2-5.4 [facility] RESPIRATORY PANEL MOLECULARo n 01-11-2025 RP PANEL Normal [facility] Comment on above: Performed By: #### M 100.638 ####[facility] [address] [place], [address] Pwag-lva-8Aosduge By: Sommer Resendiz on 01-11-2025 SARS-CoV-2 (COVID-19) RNA JAYDON+probe Ql (Unsp spec) [facility] Serum anion gap measurementO rdered By: Sommer Resendiz on 01-11-2025 Anion gap [Moles/Vol] 8 mmol/L 5-15 [facility] Serum globulin measurementOr dered By: Sommer Resendiz on 01-11-2025 Globulin (S) [Mass/Vol] 4.0 g/dL 2.2-4.2 [facility] Serum or plasma alanine pizarro otransferase (ALT) measurementOrdered By: Sommer Resendiz on 01-11-2025 ALT [Catalytic activity/Vol] 22 U/L 13-56 [facility] Serum or plasma albumin stefania urement (mass/volume)Ordered By: Sommer Resendiz on 01-11-2025 Albumin [Mass/Vol] 3.4 g/dL 3.2-5.0 [facility] Serum or plasma alkaline anthony sphatase measurementOrdered By: Sommer Resendiz on 01-11-2025 ALP [Catalytic activity/Vol] 182 U/L High 45-117 [facility] Serum or plasma calcium stefania urement (mass/volume)Ordered By: Sommer Resendiz on 01-11-2025 Calcium [Mass/Vol] 9.3 mg/dL 8.5-10.1 [facility] Serum or plasma creatinine m easurement (mass/volume)Ordered By: Sommer Resendiz on 01-11-2025 Creatinine [Mass/Vol] 1.06 mg/dL High 0.55-1.02 [facility] Comment on above: The validity of the calculated GFR & GFRAA in patients over 70 years has not been determined. Clinical correlation is essential. Serum or plasma urea nitroge n measurement (mass/volume)Ordered By: Sommer Resendiz on 01-11-2025 Urea nitrogen [Mass/Vol] 22 mg/dL High 7-18 [facility] Sodium levelOrdered By: Cynthia mn Martín on 01-11-2025 Sodium [Moles/Vol] 135 mmol/L Low 136-145 [facility] Total proteinOrdered By: Julian umn Martín on 01-11-2025 Protein [Mass/Vol] 7.4 g/dL 6.4-8.2 [facility] Troponin IOrdered By: Sommer Resendiz on 01-11-2025 Troponin I 1688 pg/mL High 3.0-54.0 [facility] Comment on above: Critical Result(s) C alled at: 10:12:22 01/11/2025 by: Joana Lainez. Results read back by same. Please Note: New Test Units and Gender Specific Reference Ranges. For more information see Policy Stat Procedure [place] High Sensitivity Troponin (TNIH) and attachments. White blood cell (WBC) count Ordered By: Sommer Resendiz on 01-11-2025 WBC (Bld) [#/Vol] 5.2 10*3/uL 4.4-11.0 [facility] 12 Lead EKGon 01-10-2025 12 Lead EKG Normal [facility] BNP (brain natriuretic pepti de measurement)Ordered By: Benjy Flores on 01-10-2025 Natriuretic peptide B (Bld) [Mass/Vol] 411.9 pg/mL High 0-100 [facility] BNP,B-Type NATRIURETIC PEPTI Hodan 01-10-2025 Natriuretic peptide B (Bld) [Mass/Vol] 411.9 pg/mL High 0-100 [facility] Comment on above: Performed By: #### L 503.6620 ####[facility] [address] [place], [place], [id number] Basic Metabolic Profile (BMP )on 01-10-2025 BUN/CRE 20.4 RATIO High 10-20 [facility] Comment on above: Order Comment: 'TROP ' Serial specimen #1, #2 or #3: 1 Performed By: #### L 100.0100, L501.4020, L500.2500 ####[facility] [address] [place], [address] CA,Total 9.5 mg/dL Normal 8.5-10.1 [facility] Comment on above: Order Comment: 'TROP ' Serial specimen #1, #2 or #3: 1 Performed By: #### L 100.0100, L501.4020, L500.2500 ####[facility] [address] [place], [address] Chloride [Moles/Vol] 101 mmol/L Normal 98-107 [facility] Comment on above: Order Comment: 'TROP ' Serial specimen #1, #2 or #3: 1 Performed By: #### L 100.0100, L501.4020, L500.2500 ####[facility] [address] [place], [address] CO2 [Moles/Vol] 22.0 mmol/L Normal 21.0-32.0 [facility] Comment on above: Order Comment: 'TROP ' Serial specimen #1, #2 or #3: 1 Performed By: #### L 100.0100, L501.4020, L500.2500 ####[facility] [address] [place], [address] Creatinine [Mass/Vol] 1.08 mg/dL High 0.55-1.02 [facility] Comment on above: Order Comment: 'TROP ' Serial specimen #1, #2 or #3: 1 Result Comment: The validity of the calculated GFR GFRAA in patients over70 years has not been determined. Clinical correlation isessential. Performed By: #### L 100.0100, L501.4020, L500.2500 ####[facility] [address] [place], [address] ECRCL 40.02 ml/min Normal [facility] Comment on above: Order Comment: 'TROP ' Serial specimen #1, #2 or #3: 1 Performed By: #### L 100.0100, L501.4020, L500.2500 ####[facility] [address] [place], [address] EST GFR - AA 64 mL/min Normal >60 [facility] Comment on above: Order Comment: 'TROP ' Serial specimen #1, #2 or #3: 1 Result Comment: Afri can Macanese GFR Calc Performed By: #### L 100.0100, L501.4020, L500.2500 ####[facility] [address] [place], [address] GAP 11 Normal 5-15 [facility] Comment on above: Order Comment: 'TROP ' Serial specimen #1, #2 or #3: 1 Performed By: #### L 100.0100, L501.4020, L500.2500 ####[facility] [address] [place], [address] GFR/1.73 sq M.predicted among non-blacks MDRD (S/P/Bld) [Vol rate/Area] 53 mL/min/{1.73_m2} Low >60 [facility] Comment on above: Order Comment: 'TROP ' Serial specimen #1, #2 or #3: 1 Result Comment: Non- GFR Calc Performed By: #### L 100.0100, L501.4020, L500.2500 ####[facility] [address] [place], [address] Glucose [Mass/Vol] 114 mg/dL High 74-106 [facility] Comment on above: Order Comment: 'TROP ' Serial specimen #1, #2 or #3: 1 Result Comment: Fast ing Glucose result from 100 to 125 mg/dLsuggests IMPAIRED HOMEOSTASIS per A.D.A. criteria. Performed By: #### L 100.0100, L501.4020, L500.2500 ####[facility] [address] [place], [address] Potassium [Moles/Vol] 3.8 mmol/L Normal 3.5-5.1 [facility] Comment on above: Order Comment: 'TROP ' Serial specimen #1, #2 or #3: 1 Performed By: #### L 100.0100, L501.4020, L500.2500 ####[facility] [address] [place], [address] Sodium [Moles/Vol] 134 mmol/L Low 136-145 [facility] Comment on above: Order Comment: 'TROP ' Serial specimen #1, #2 or #3: 1 Performed By: #### L 100.0100, L501.4020, L500.2500 ####[facility] [address] [place], [address] Urea nitrogen [Mass/Vol] 22 mg/dL High 7-18 [facility] Comment on above: Order Comment: 'TROP ' Serial specimen #1, #2 or #3: 1 Performed By: #### L 100.0100, L501.4020, L500.2500 ####[facility] [address] [place], [address] Brain/Head without Contrasto n 01-10-2025 Brain/Head without Contrast Normal [facility] CBC W/Diff, Automatedon - Absolute Lymph 0.72 X10 3/uL Low 0.83-4.51 [facility] Comment on above: Performed By: #### L 100.0100, L501.4020, L500.2500 ####[facility] [address] [place], [address] Absolute Neut 5.9 X10 3/uL Normal 2.0-7.7 [facility] Comment on above: Performed By: #### L 100.0100, L501.4020, L500.2500 ####[facility] [address] [place], [address] Basophils/100 WBC (Bld) 0.4 % Normal 0-1 [facility] Comment on above: Performed By: #### L 100.0100, L501.4020, L500.2500 ####[facility] [address] [place], [address] Eosinophils/100 WBC (Bld) 1.4 % Normal 0-5 [facility] Comment on above: Performed By: #### L 100.0100, L501.4020, L500.2500 ####[facility] [address] [place], [address] Erythrocyte distribution width (RBC) [Ratio] 14.9 % High 11.6-14.6 [facility] Comment on above: Performed By: #### L 100.0100, L501.4020, L500.2500 ####[facility] [address] [place], [address] Hematocrit (Bld) [Volume fraction] 40.1 % Normal 37-47 [facility] Comment on above: Performed By: #### L 100.0100, L501.4020, L500.2500 ####[facility] [address] [place], [address] Hemoglobin (Bld) [Mass/Vol] 13.1 g/dL Normal 12.0-15.0 [facility] Comment on above: Performed By: #### L 100.0100, L501.4020, L500.2500 ####[facility] [address] [place], [address] IG% 0.400 Normal 0.0-0.9 [facility] Comment on above: Result Comment: IG% - Immature Granulocytes (promyelocytes, myelocytes andmetamyelocytes) > 1% indicates that a LEFT SHIFT is Present. Performed By: #### L 100.0100, L501.4020, L500.2500 ####[facility] [address] [place], [address] Lymphocytes/100 WBC (Bld) 9.8 % Low 19-41 [facility] Comment on above: Performed By: #### L 100.0100, L501.4020, L500.2500 ####[facility] [address] [place], [address] MCH (RBC) [Entitic mass] 26.6 pg Low 27.0-32.0 [facility] Comment on above: Performed By: #### L 100.0100, L501.4020, L500.2500 ####[facility] [address] [place], [address] MCHC (RBC) [Mass/Vol] 32.7 g/dL Normal 32-36 [facility] Comment on above: Performed By: #### L 100.0100, L501.4020, L500.2500 ####[facility] [address] [place], [address] MCV (RBC) [Entitic vol] 81.5 fL Normal 81-99 [facility] Comment on above: Performed By: #### L 100.0100, L501.4020, L500.2500 ####[facility] [address] [place], [address] Monocytes/100 WBC (Bld) 8.0 % Normal 0-10 [facility] Comment on above: Performed By: #### L 100.0100, L501.4020, L500.2500 ####[facility] [address] [place], [address] Neutrophils/100 WBC (Bld) 80.0 % High 47-70 [facility] Comment on above: Performed By: #### L 100.0100, L501.4020, L500.2500 ####[facility] [address] [place], [address] Nucleated RBC (Bld) [#/Vol] 0 10*3/uL Normal 0-5 [facility] Comment on above: Performed By: #### L 100.0100, L501.4020, L500.2500 ####[facility] [address] [place], [address] Platelet mean volume (Bld) [Entitic vol] 9.8 fL Normal 6.2-12.0 [facility] Comment on above: Performed By: #### L 100.0100, L501.4020, L500.2500 ####[facility] [address] [place], [address] Platelets (Bld) [#/Vol] 147 10*3/uL Low 150-450 [facility] Comment on above: Performed By: #### L 100.0100, L501.4020, L500.2500 ####[facility] [address] [place], [address] RBC (Bld) [#/Vol] 4.92 10*6/uL Normal 4.2-5.4 [facility] Comment on above: Performed By: #### L 100.0100, L501.4020, L500.2500 ####[facility] [address] [place], [address] RDW SD 44.3 fl High 35.1-43.9 [facility] Comment on above: Performed By: #### L 100.0100, L501.4020, L500.2500 ####[facility] [address] [place], [address] WBC (Bld) [#/Vol] 7.4 10*3/uL Normal 4.4-11.0 [facility] Comment on above: Performed By: #### L 100.0100, L501.4020, L500.2500 ####[facility] [address] [place], [address] Chest 1 View (Portable)on Chest 1 View (Portable) Normal [facility] Emergency Department Summary on 01-10-2025 Emergency Department Summary Normal [facility] H AND P Exam - Hospitaliston 01-10-2025 H&P Exam - Hospitalist Normal [facility] L501.4020on 01-10-2025 TROPONIN-I HS 2243 pg/mL Invalid Interpretation Code 3.0-54.0 [facility] Comment on above: Order Comment: 'TROP ' Serial specimen #1, #2 or #3: 1 Result Comment: Crit ical Result(s) Called at: 22:15:33 01/10/2025 by: BERYL to Juventino Rodrigez. Results read back by same. Please Note: New Test Units and Gender Specific Reference Ranges. For more information see Policy Stat Procedure [place] High Sensitivity Troponin (TNIH) and attachments. Performed By: #### L 100.0100, L501.4020, L500.2500 ####[facility] [address] [place], [address] Magnesium measurementOrdered By: Sommer Resendiz on 01-10-2025 Magnesium [Mass/Vol] 2.0 mg/dL 1.6-2.6 [facility] Respiratory pathogens detect ion panel by molecular detection methodOrdered By: Sommer Resendiz on 01-10-2025 Respiratory pathogens DNA and RNA panel JAYDON+probe (Resp) [facility] Pulmonary Visit Reporton Pulmonary Visit Report Normal [facility] Cardiology Visit Reporton Cardiology Visit Report Normal [facility] 12 Lead EKGon 12-17-2024 12 Lead EKG Normal [facility] Basic Metabolic Profile (BMP )on 12-17-2024 BUN/CRE 24.1 RATIO High 10-20 [facility] Comment on above: Order Comment: 1Y Performed By: #### L 503.6005, L500.2500, L100.0500, L501.5425 ####[facility] [address] [place], [address] CA,Total 9.0 mg/dL Normal 8.5-10.1 [facility] Comment on above: Order Comment: 1Y Performed By: #### L 503.6005, L500.2500, L100.0500, L501.5425 ####[facility] [address] [place], [address] Chloride [Moles/Vol] 106 mmol/L Normal 98-107 [facility] Comment on above: Order Comment: 1Y Performed By: #### L 503.6005, L500.2500, L100.0500, L501.5425 ####[facility] [address] [place], [address] CO2 [Moles/Vol] 27.0 mmol/L Normal 21.0-32.0 [facility] Comment on above: Order Comment: 1Y Performed By: #### L 503.6005, L500.2500, L100.0500, L501.5425 ####[facility] [address] [place], [address] Creatinine [Mass/Vol] 1.08 mg/dL High 0.55-1.02 [facility] Comment on above: Order Comment: 1Y Result Comment: The validity of the calculated GFR GFRAA in patients over70 years has not been determined. Clinical correlation isessential. Performed By: #### L 503.6005, L500.2500, L100.0500, L501.5425 ####[facility] [address] [place], [address] ECRCL 40.75 ml/min Normal [facility] Comment on above: Order Comment: 1Y Performed By: #### L 503.6005, L500.2500, L100.0500, L501.5425 ####[facility] [address] [place], [address] EST GFR - AA 64 mL/min Normal >60 [facility] Comment on above: Order Comment: 1Y Result Comment: Afri can Macanese GFR Calc Performed By: #### L 503.6005, L500.2500, L100.0500, L501.5425 ####[facility] [address] [place], [address] GAP 7 Normal 5-15 [facility] Comment on above: Order Comment: 1Y Performed By: #### L 503.6005, L500.2500, L100.0500, L501.5425 ####[facility] [address] [place], [address] GFR/1.73 sq M.predicted among non-blacks MDRD (S/P/Bld) [Vol rate/Area] 53 mL/min/{1.73_m2} Low >60 [facility] Comment on above: Order Comment: 1Y Result Comment: Non- GFR Calc Performed By: #### L 503.6005, L500.2500, L100.0500, L501.5425 ####[facility] [address] [place], [address] Glucose [Mass/Vol] 96 mg/dL Normal 74-106 [facility] Comment on above: Order Comment: 1Y Performed By: #### L 503.6005, L500.2500, L100.0500, L501.5425 ####[facility] [address] [place], [address] Potassium [Moles/Vol] 4.4 mmol/L Normal 3.5-5.1 [facility] Comment on above: Order Comment: 1Y Performed By: #### L 503.6005, L500.2500, L100.0500, L501.5425 ####[facility] [address] [place], [address] Sodium [Moles/Vol] 140 mmol/L Normal 136-145 [facility] Comment on above: Order Comment: 1Y Performed By: #### L 503.6005, L500.2500, L100.0500, L501.5425 ####[facility] [address] [place], [address] Urea nitrogen [Mass/Vol] 26 mg/dL High 7-18 [facility] Comment on above: Order Comment: 1Y Performed By: #### L 503.6005, L500.2500, L100.0500, L501.5425 ####[facility] [address] [place], [address] CBC-Complete Blood Cnt No Di ffon 12-17-2024 Erythrocyte distribution width (RBC) [Ratio] 15.8 % High 11.6-14.6 [facility] Comment on above: Performed By: #### L 503.6005, L500.2500, L100.0500, L501.5425 ####[facility] [address] [place], [address] Hematocrit (Bld) [Volume fraction] 35.3 % Low 37-47 [facility] Comment on above: Performed By: #### L 503.6005, L500.2500, L100.0500, L501.5425 ####[facility] [address] [place], [address] Hemoglobin (Bld) [Mass/Vol] 11.3 g/dL Low 12.0-15.0 [facility] Comment on above: Performed By: #### L 503.6005, L500.2500, L100.0500, L501.5425 ####[facility] [address] [place], [address] MCH (RBC) [Entitic mass] 27.4 pg Normal 27.0-32.0 [facility] Comment on above: Performed By: #### L 503.6005, L500.2500, L100.0500, L501.5425 ####[facility] [address] [place], [address] MCHC (RBC) [Mass/Vol] 32.0 g/dL Normal 32-36 [facility] Comment on above: Performed By: #### L 503.6005, L500.2500, L100.0500, L501.5425 ####[facility] [address] [place], [address] MCV (RBC) [Entitic vol] 85.5 fL Normal 81-99 [facility] Comment on above: Performed By: #### L 503.6005, L500.2500, L100.0500, L501.5425 ####[facility] [address] [place], [address] Platelet mean volume (Bld) [Entitic vol] 9.9 fL Normal 6.2-12.0 [facility] Comment on above: Performed By: #### L 503.6005, L500.2500, L100.0500, L501.5425 ####[facility] [address] [place], [address] Platelets (Bld) [#/Vol] 230 10*3/uL Normal 150-450 [facility] Comment on above: Performed By: #### L 503.6005, L500.2500, L100.0500, L501.5425 ####[facility] [address] [place], [address] RBC (Bld) [#/Vol] 4.13 10*6/uL Low 4.2-5.4 [facility] Comment on above: Performed By: #### L 503.6005, L500.2500, L100.0500, L501.5425 ####[facility] [address] [place], [address] RDW SD 49.2 fl High 35.1-43.9 [facility] Comment on above: Performed By: #### L 503.6005, L500.2500, L100.0500, L501.5425 ####[facility] [address] [place], [address] WBC (Bld) [#/Vol] 8.8 10*3/uL Normal 4.4-11.0 [facility] Comment on above: Performed By: #### L 503.6005, L500.2500, L100.0500, L501.5425 ####[facility] [address] [place], [address] Carbon dioxide measurementOr dered By: Jeffy Willoughby on 12-17-2024 CO2 [Moles/Vol] 27.0 mmol/L 21.0-32.0 [facility] Chest PA and Lateralon 12-17 Chest PA and Lateral Normal [facility] Chloride measurementOrdered By: Jeffy Willoughby on 12-17-2024 Chloride [Moles/Vol] 106 mmol/L 98-107 [facility] Emergency Department Summary on 12-17-2024 Emergency Department Summary Normal [facility] Erythrocyte distribution wid th ratioOrdered By: Jeffyaura Willoughby on 12-17-2024 Erythrocyte distribution width (RBC) [Ratio] 15.8 % High 11.6-14.6 [facility] Erythrocyte distribution wid th standard deviationOrdered By: Jeffy Willoughby on 12-17-2024 Erythrocyte distribution width (RBC) [Ratio] 49.2 fl High 35.1-43.9 [facility] Glomerular filtration rate ( GFR) estimationOrdered By: Jeffy Willoughby on 12-17-2024 GFR/1.73 sq M.predicted among non-blacks MDRD (S/P/Bld) [Vol rate/Area] 53 mL/min/{1.73_m2} Low >60 [facility] Glucose measurementOrdered B y: Jeffy Willoughby on 12-17-2024 Glucose [Mass/Vol] 96 mg/dL 74-106 [facility] Hematocrit Auto (Bld) [Volum e fraction]Ordered By: Jeffy Willoughby on 12-17-2024 Hematocrit (Bld) [Volume fraction] 35.3 % Low 37-47 [facility] Hemoglobin measurementOrdere d By: Jeffy Willoughby on 12-17-2024 Hemoglobin (Bld) [Mass/Vol] 11.3 g/dL Low 12.0-15.0 [facility] L501.4020on 12-17-2024 TROPONIN-I HS 23 pg/mL Normal 3.0-54.0 [facility] Comment on above: Result Comment: Plea se Note: New Test Units and Gender Specific Reference Ranges. For more information see Policy Stat Procedure [place] High Sensitivity Troponin (TNIH) and attachments. Performed By: #### L 501.4020 ####[facility] [address] [place], [address] L501.5425on 12-17-2024 TROPONIN-I HS 24 pg/mL Normal 3.0-54.0 [facility] Comment on above: Order Comment: 1Y Result Comment: Plea se Note: New Test Units and Gender Specific Reference Ranges. For more information see Policy Stat Procedure [place] High Sensitivity Troponin (TNIH) and attachments. Performed By: #### L 503.6005, L500.2500, L100.0500, L501.5425 ####[facility] [address] [place], [address] Lactic Acidon 12-17-2024 Lactate [Moles/Vol] 1.5 mmol/L Normal 0.4-1.9 [facility] Comment on above: Order Comment: Y Performed By: #### L 503.6005, L500.2500, L100.0500, L501.5425 ####[facility] [address] [place], [address] MCV (mean corpuscular volume ) determinationOrdered By: Jeffy Willoughby on 12-17-2024 MCV (RBC) [Entitic vol] 85.5 fL 81-99 [facility] Mean corpuscular hemoglobin (MCH) determinationOrdered By: Jeffy Willoughby on 12-17-2024 MCH (RBC) [Entitic mass] 27.4 pg 27.0-32.0 [facility] Platelet countOrdered By: Barrett Willoughby on 12-17-2024 Platelets (Bld) [#/Vol] 230 10*3/uL 150-450 [facility] Potassium measurementOrdered By: Jeffy Willoughby on 12-17-2024 Potassium [Moles/Vol] 4.4 mmol/L 3.5-5.1 [facility] RBC Auto (Bld) [#/Vol]Ordere d By: Jeffy Willoughby on 12-17-2024 RBC (Bld) [#/Vol] 4.13 10*6/uL Low 4.2-5.4 [facility] Serum or plasma calcium stefania urement (mass/volume)Ordered By: Jeffy Willoughby on 12-17-2024 Calcium [Mass/Vol] 9.0 mg/dL 8.5-10.1 [facility] Serum or plasma creatinine m easurement (mass/volume)Ordered By: Jeffy Willoughby on 12-17-2024 Creatinine [Mass/Vol] 1.08 mg/dL High 0.55-1.02 [facility] Serum or plasma urea nitroge n measurement (mass/volume)Ordered By: Jeffy Willoughby on 12-17-2024 Urea nitrogen [Mass/Vol] 26 mg/dL High 7-18 [facility] Sodium levelOrdered By: Jeffy Willoughby on 12-17-2024 Sodium [Moles/Vol] 140 mmol/L 136-145 [facility] Troponin IOrdered By: Jeffy rosario on 12-17-2024 Troponin I 23 pg/mL 3.0-54.0 [facility] White blood cell (WBC) count Ordered By: Jeffy Willoughby on 12-17-2024 WBC (Bld) [#/Vol] 8.8 10*3/uL 4.4-11.0 [facility] 12 Lead EKGon 12-11-2024 12 Lead EKG Normal [facility] Bilirubin, totalOrdered By: Kofi Weiner on 12-11-2024 Bilirubin [Mass/Vol] 0.30 mg/dL 0.20-1.00 [facility] CBC-Complete Blood Cnt No Di ffon 12-11-2024 Erythrocyte distribution width (RBC) [Ratio] 15.4 % High 11.6-14.6 [facility] Comment on above: Performed By: #### L 500.4050, L100.0500 ####[facility] [address] [place], [address] Hematocrit (Bld) [Volume fraction] 35.3 % Low 37-47 [facility] Comment on above: Performed By: #### L 500.4050, L100.0500 ####[facility] [address] [place], [address] Hemoglobin (Bld) [Mass/Vol] 11.2 g/dL Low 12.0-15.0 [facility] Comment on above: Performed By: #### L 500.4050, L100.0500 ####[facility] [address] [place], [address] MCH (RBC) [Entitic mass] 26.4 pg Low 27.0-32.0 [facility] Comment on above: Performed By: #### L 500.4050, L100.0500 ####[facility] [address] [place], [address] MCHC (RBC) [Mass/Vol] 31.7 g/dL Low 32-36 [facility] Comment on above: Performed By: #### L 500.4050, L100.0500 ####[facility] [address] [place], [address] MCV (RBC) [Entitic vol] 83.3 fL Normal 81-99 [facility] Comment on above: Performed By: #### L 500.4050, L100.0500 ####[facility] [address] [place], [address] Platelet mean volume (Bld) [Entitic vol] 10.0 fL Normal 6.2-12.0 [facility] Comment on above: Performed By: #### L 500.4050, L100.0500 ####[facility] [address] [place], [address] Platelets (Bld) [#/Vol] 197 10*3/uL Normal 150-450 [facility] Comment on above: Performed By: #### L 500.4050, L100.0500 ####[facility] [address] [place], [address] RBC (Bld) [#/Vol] 4.24 10*6/uL Normal 4.2-5.4 [facility] Comment on above: Performed By: #### L 500.4050, L100.0500 ####[facility] [address] [place], [address] RDW SD 46.5 fl High 35.1-43.9 [facility] Comment on above: Performed By: #### L 500.4050, L100.0500 ####[facility] [address] [place], [address] WBC (Bld) [#/Vol] 7.7 10*3/uL Normal 4.4-11.0 [facility] Comment on above: Performed By: #### L 500.4050, L100.0500 ####[facility] [address] [place], [address] Carbon dioxide measurementOr dered By: Kofi Weiner on 12-11-2024 CO2 [Moles/Vol] 24.0 mmol/L 21.0-32.0 [facility] Cardiac Cath Diagnosticon Cardiac Cath Diagnostic Normal [facility] Chloride measurementOrdered By: Kofi Weiner on 12-11-2024 Chloride [Moles/Vol] 103 mmol/L 98-107 [facility] Comprehensive Metabolic Prof ilon 12-11-2024 Albumin [Mass/Vol] 3.0 g/dL Low 3.2-5.0 [facility] Comment on above: Performed By: #### L 500.4050, L100.0500 ####[facility] [address] [place], [address] Albumin/Globulin [Mass ratio] 0.9 {ratio} Normal 0.9-2.4 [facility] Comment on above: Performed By: #### L 500.4050, L100.0500 ####[facility] [address] [place], [address] ALK P 123 U/L High 45-117 [facility] Comment on above: Performed By: #### L 500.4050, L100.0500 ####[facility] [address] [place], [address] ALT [Catalytic activity/Vol] 12 U/L Low 13-56 [facility] Comment on above: Performed By: #### L 500.4050, L100.0500 ####[facility] [address] [place], [address] AST [Catalytic activity/Vol] 13 U/L Low 15-37 [facility] Comment on above: Performed By: #### L 500.4050, L100.0500 ####[facility] [address] [place], [address] Bilirubin [Mass/Vol] 0.30 mg/dL Normal 0.20-1.00 [facility] Comment on above: Result Comment: For patients on eltrombopag therapy, use of Dimension [place] TBIL is not recommended. Performed By: #### L 500.4050, L100.0500 ####[facility] [address] [place], [address] BUN/CRE 20.3 RATIO High 10-20 [facility] Comment on above: Performed By: #### L 500.4050, L100.0500 ####[facility] [address] [place], [address] CA,Total 8.9 mg/dL Normal 8.5-10.1 [facility] Comment on above: Performed By: #### L 500.4050, L100.0500 ####[facility] [address] [place], [address] Chloride [Moles/Vol] 103 mmol/L Normal 98-107 [facility] Comment on above: Performed By: #### L 500.4050, L100.0500 ####[facility] [address] [place], [address] CO2 [Moles/Vol] 24.0 mmol/L Normal 21.0-32.0 [facility] Comment on above: Performed By: #### L 500.4050, L100.0500 ####[facility] [address] [place], [address] Creatinine [Mass/Vol] 1.18 mg/dL High 0.55-1.02 [facility] Comment on above: Result Comment: The validity of the calculated GFR GFRAA in patients over70 years has not been determined. Clinical correlation isessential. Performed By: #### L 500.4050, L100.0500 ####[facility] [address] [place], [address] ECRCL 36.07 ml/min Normal [facility] Comment on above: Performed By: #### L 500.4050, L100.0500 ####[facility] [address] [place], [address] EST GFR - AA 58 mL/min Low >60 [facility] Comment on above: Result Comment: Afri can Macanese GFR Calc Performed By: #### L 500.4050, L100.0500 ####[facility] [address] [place], [address] GAP 8 Normal 5-15 [facility] Comment on above: Performed By: #### L 500.4050, L100.0500 ####[facility] [address] [place], [address] GFR/1.73 sq M.predicted among non-blacks MDRD (S/P/Bld) [Vol rate/Area] 48 mL/min/{1.73_m2} Low >60 [facility] Comment on above: Result Comment: Non- GFR Calc Performed By: #### L 500.4050, L100.0500 ####[facility] [address] [place], [address] Globulin (S) [Mass/Vol] 3.4 g/dL Normal 2.2-4.2 [facility] Comment on above: Performed By: #### L 500.4050, L100.0500 ####[facility] [address] [place], [address] Glucose [Mass/Vol] 98 mg/dL Normal 74-106 [facility] Comment on above: Performed By: #### L 500.4050, L100.0500 ####[facility] [address] [place], [address] Potassium [Moles/Vol] 4.0 mmol/L Normal 3.5-5.1 [facility] Comment on above: Performed By: #### L 500.4050, L100.0500 ####[facility] [address] [place], [address] Sodium [Moles/Vol] 135 mmol/L Low 136-145 [facility] Comment on above: Performed By: #### L 500.4050, L100.0500 ####[facility] [address] [place], [address] T PROT 6.4 g/dL Normal 6.4-8.2 [facility] Comment on above: Performed By: #### L 500.4050, L100.0500 ####[facility] [address] [place], [address] Urea nitrogen [Mass/Vol] 24 mg/dL High 7-18 [facility] Comment on above: Performed By: #### L 500.4050, L100.0500 ####[facility] [address] [place], [place], [address] Discharge Instructionon 11-20 Discharge Instruction Normal [facility] Erythrocyte distribution wid th ratioOrdered By: Kofi Weiner on 12-11-2024 Erythrocyte distribution width (RBC) [Ratio] 15.4 % High 11.6-14.6 [facility] Erythrocyte distribution wid th standard deviationOrdered By: Kofi Weiner on 12-11-2024 Erythrocyte distribution width (RBC) [Ratio] 46.5 fl High 35.1-43.9 [facility] Glomerular filtration rate ( GFR) estimationOrdered By: Kofi Weiner on 12-11-2024 GFR/1.73 sq M.predicted among non-blacks MDRD (S/P/Bld) [Vol rate/Area] 48 mL/min/{1.73_m2} Low >60 [facility] Glucose measurementOrdered B y: Kofi Weiner on 12-11-2024 Glucose [Mass/Vol] 98 mg/dL 74-106 [facility] Hematocrit Auto (Bld) [Volum e fraction]Ordered By: Kofi Weiner on 12-11-2024 Hematocrit (Bld) [Volume fraction] 35.3 % Low 37-47 [facility] Hemoglobin measurementOrdere d By: Kofi Weiner on 12-11-2024 Hemoglobin (Bld) [Mass/Vol] 11.2 g/dL Low 12.0-15.0 [facility] MCV (mean corpuscular volume ) determinationOrdered By: Kofi Weiner on 12-11-2024 MCV (RBC) [Entitic vol] 83.3 fL 81-99 [facility] Mean corpuscular hemoglobin (MCH) determinationOrdered By: Kofi Weiner on 12-11-2024 MCH (RBC) [Entitic mass] 26.4 pg Low 27.0-32.0 [facility] No Panel InformationOrdered By: Kofi Weiner on 12-11-2024 13 U/L Low 15-37 [facility] Platelet countOrdered By: Kacie chauncey Husam on 12-11-2024 Platelets (Bld) [#/Vol] 197 10*3/uL 150-450 [facility] Potassium measurementOrdered By: Kofi Weiner on 12-11-2024 Potassium [Moles/Vol] 4.0 mmol/L 3.5-5.1 [facility] RBC Auto (Bld) [#/Vol]Ordere d By: Kofi Weiner on 12-11-2024 RBC (Bld) [#/Vol] 4.24 10*6/uL 4.2-5.4 [facility] Serum globulin measurementOr dered By: Kofi Weiner on 12-11-2024 Globulin (S) [Mass/Vol] 3.4 g/dL 2.2-4.2 [facility] Serum or plasma alanine pizarro otransferase (ALT) measurementOrdered By: Kofi Weiner on 12-11-2024 ALT [Catalytic activity/Vol] 12 U/L Low 13-56 [facility] Serum or plasma albumin stefania urement (mass/volume)Ordered By: Kofi Weiner on 12-11-2024 Albumin [Mass/Vol] 3.0 g/dL Low 3.2-5.0 [facility] Serum or plasma alkaline anthony sphatase measurementOrdered By: Kofi Weiner on 12-11-2024 ALP [Catalytic activity/Vol] 123 U/L High 45-117 [facility] Serum or plasma calcium stefania urement (mass/volume)Ordered By: Kofi Weiner on 12-11-2024 Calcium [Mass/Vol] 8.9 mg/dL 8.5-10.1 [facility] Serum or plasma creatinine m easurement (mass/volume)Ordered By: Kofi Weiner on 12-11-2024 Creatinine [Mass/Vol] 1.18 mg/dL High 0.55-1.02 [facility] Serum or plasma urea nitroge n measurement (mass/volume)Ordered By: Kofi Weiner on 12-11-2024 Urea nitrogen [Mass/Vol] 24 mg/dL High 7-18 [facility] Sodium levelOrdered By: Jose ailynshayymarcelle Husam on 12-11-2024 Sodium [Moles/Vol] 135 mmol/L Low 136-145 [facility] Stool Occult Blood iFOBon STOB Normal [facility] Comment on above: Performed By: #### M 100.7900 ####[facility] [address] [place], [place], [id number] Stool gastrointestinal hemog lobin detection by immunologic methodOrdered By: Trina Tyler on 12-11-2024 Lower GI hemoglobin IA Ql (Stl) [facility] Total proteinOrdered By: Billy Weiner on 12-11-2024 Protein [Mass/Vol] 6.4 g/dL 6.4-8.2 [facility] White blood cell (WBC) count Ordered By: Kofi Weiner on 12-11-2024 WBC (Bld) [#/Vol] 7.7 10*3/uL 4.4-11.0 [facility] 12 Lead EKGon 12-10-2024 12 Lead EKG Normal [facility] 12 Lead EKG Normal [facility] Absolute lymphocyte countOrd ered By: Trina Tyler on 12-10-2024 Lymphocytes Auto (Unsp spec) [#/Vol] 0.76 10*3/uL Low 0.83-4.51 [facility] Automated lymphocyte count a s percentage of total leukocytesOrdered By: Trina Tyler on 12-10-2024 Lymphocytes/100 WBC Auto (Unsp spec) 10.6 % Low 19-41 [facility] Basic Metabolic Profile (BMP )on 12-10-2024 BUN/CRE 22.3 RATIO High 10-20 [facility] Comment on above: Performed By: #### L 100.0100, L500.2500, L501.9520, L500.4100 ####[facility] [address] [place], [address] CA,Total 9.2 mg/dL Normal 8.5-10.1 [facility] Comment on above: Performed By: #### L 100.0100, L500.2500, L501.9520, L500.4100 ####[facility] [address] [place], [address] Chloride [Moles/Vol] 103 mmol/L Normal 98-107 [facility] Comment on above: Performed By: #### L 100.0100, L500.2500, L501.9520, L500.4100 ####[facility] [address] [place], [address] CO2 [Moles/Vol] 26.0 mmol/L Normal 21.0-32.0 [facility] Comment on above: Performed By: #### L 100.0100, L500.2500, L501.9520, L500.4100 ####[facility] [address] [place], [address] Creatinine [Mass/Vol] 1.03 mg/dL High 0.55-1.02 [facility] Comment on above: Result Comment: The validity of the calculated GFR GFRAA in patients over70 years has not been determined. Clinical correlation isessential. Performed By: #### L 100.0100, L500.2500, L501.9520, L500.4100 ####[facility] [address] [place], [address] ECRCL 41.32 ml/min Normal [facility] Comment on above: Performed By: #### L 100.0100, L500.2500, L501.9520, L500.4100 ####[facility] [address] [place], [address] EST GFR - AA 68 mL/min Normal >60 [facility] Comment on above: Result Comment: Afri can Macanese GFR Calc Performed By: #### L 100.0100, L500.2500, L501.9520, L500.4100 ####[facility] [address] [place], [address] GAP 9 Normal 5-15 [facility] Comment on above: Performed By: #### L 100.0100, L500.2500, L501.9520, L500.4100 ####[facility] [address] [place], [address] GFR/1.73 sq M.predicted among non-blacks MDRD (S/P/Bld) [Vol rate/Area] 56 mL/min/{1.73_m2} Low >60 [facility] Comment on above: Result Comment: Non- GFR Calc Performed By: #### L 100.0100, L500.2500, L501.9520, L500.4100 ####[facility] [address] [place], [address] Glucose [Mass/Vol] 85 mg/dL Normal 74-106 [facility] Comment on above: Performed By: #### L 100.0100, L500.2500, L501.9520, L500.4100 ####[facility] [address] [place], [address] Potassium [Moles/Vol] 3.8 mmol/L Normal 3.5-5.1 [facility] Comment on above: Performed By: #### L 100.0100, L500.2500, L501.9520, L500.4100 ####[facility] [address] [place], [address] Sodium [Moles/Vol] 138 mmol/L Normal 136-145 [facility] Comment on above: Performed By: #### L 100.0100, L500.2500, L501.9520, L500.4100 ####[facility] [address] [place], [address] Urea nitrogen [Mass/Vol] 23 mg/dL High 7-18 [facility] Comment on above: Performed By: #### L 100.0100, L500.2500, L501.9520, L500.4100 ####[facility] [address] [place], [address] Basophil percentageOrdered B y: Trina Tyler on 12-10-2024 Basophils/100 WBC (Bld) 0.7 % 0-1 [facility] CBC W/Diff, Automatedon 11-20 Absolute Lymph 0.76 X10 3/uL Low 0.83-4.51 [facility] Comment on above: Performed By: #### L 100.0100, L500.2500, L501.9520, L500.4100 ####[facility] [address] [place], [address] Absolute Neut 5.7 X10 3/uL Normal 2.0-7.7 [facility] Comment on above: Performed By: #### L 100.0100, L500.2500, L501.9520, L500.4100 ####[facility] [address] [place], [address] Basophils/100 WBC (Bld) 0.7 % Normal 0-1 [facility] Comment on above: Performed By: #### L 100.0100, L500.2500, L501.9520, L500.4100 ####[facility] [address] [place], [address] Eosinophils/100 WBC (Bld) 1.5 % Normal 0-5 [facility] Comment on above: Performed By: #### L 100.0100, L500.2500, L501.9520, L500.4100 ####[facility] [address] [place], [address] Erythrocyte distribution width (RBC) [Ratio] 15.3 % High 11.6-14.6 [facility] Comment on above: Performed By: #### L 100.0100, L500.2500, L501.9520, L500.4100 ####[facility] [address] [place], [address] Hematocrit (Bld) [Volume fraction] 37.9 % Normal 37-47 [facility] Comment on above: Performed By: #### L 100.0100, L500.2500, L501.9520, L500.4100 ####[facility] [address] [place], [address] Hemoglobin (Bld) [Mass/Vol] 12.2 g/dL Normal 12.0-15.0 [facility] Comment on above: Performed By: #### L 100.0100, L500.2500, L501.9520, L500.4100 ####[facility] [address] [place], [address] IG% 0.400 Normal 0.0-0.9 [facility] Comment on above: Result Comment: IG% - Immature Granulocytes (promyelocytes, myelocytes andmetamyelocytes) > 1% indicates that a LEFT SHIFT is Present. Performed By: #### L 100.0100, L500.2500, L501.9520, L500.4100 ####[facility] [address] [place], [address] Lymphocytes/100 WBC (Bld) 10.6 % Low 19-41 [facility] Comment on above: Performed By: #### L 100.0100, L500.2500, L501.9520, L500.4100 ####[facility] [address] [place], [address] MCH (RBC) [Entitic mass] 27.0 pg Normal 27.0-32.0 [facility] Comment on above: Performed By: #### L 100.0100, L500.2500, L501.9520, L500.4100 ####[facility] [address] [place], [address] MCHC (RBC) [Mass/Vol] 32.2 g/dL Normal 32-36 [facility] Comment on above: Performed By: #### L 100.0100, L500.2500, L501.9520, L500.4100 ####[facility] [address] [place], [address] MCV (RBC) [Entitic vol] 83.8 fL Normal 81-99 [facility] Comment on above: Performed By: #### L 100.0100, L500.2500, L501.9520, L500.4100 ####[facility] [address] [place], [address] Monocytes/100 WBC (Bld) 7.4 % Normal 0-10 [facility] Comment on above: Performed By: #### L 100.0100, L500.2500, L501.9520, L500.4100 ####[facility] [address] [place], [address] Neutrophils/100 WBC (Bld) 79.4 % High 47-70 [facility] Comment on above: Performed By: #### L 100.0100, L500.2500, L501.9520, L500.4100 ####[facility] [address] [place], [address] Nucleated RBC (Bld) [#/Vol] 0 10*3/uL Normal 0-5 [facility] Comment on above: Performed By: #### L 100.0100, L500.2500, L501.9520, L500.4100 ####[facility] [address] [place], [address] Platelet mean volume (Bld) [Entitic vol] 9.7 fL Normal 6.2-12.0 [facility] Comment on above: Performed By: #### L 100.0100, L500.2500, L501.9520, L500.4100 ####[facility] [address] [place], [address] Platelets (Bld) [#/Vol] 175 10*3/uL Normal 150-450 [facility] Comment on above: Performed By: #### L 100.0100, L500.2500, L501.9520, L500.4100 ####[facility] [address] [place], [address] RBC (Bld) [#/Vol] 4.52 10*6/uL Normal 4.2-5.4 [facility] Comment on above: Performed By: #### L 100.0100, L500.2500, L501.9520, L500.4100 ####[facility] [address] [place], [address] RDW SD 46.5 fl High 35.1-43.9 [facility] Comment on above: Performed By: #### L 100.0100, L500.2500, L501.9520, L500.4100 ####[facility] [address] [place], [address] WBC (Bld) [#/Vol] 7.2 10*3/uL Normal 4.4-11.0 [facility] Comment on above: Performed By: #### L 100.0100, L500.2500, L501.9520, L500.4100 ####[facility] [address] [place], [address] Consultation - Cardiologyon 12-10-2024 Consultation - Cardiology Normal [facility] Eosinophil percentageOrdered By: Trina Tyler on 12-10-2024 Eosinophils/100 WBC (Bld) 1.5 % 0-5 [facility] High density lipoprotein (HD L) measurementOrdered By: Trina Tyler on 12-10-2024 High density lipoprotein (HDL) measurement 49 mg/dL >40 [facility] Immature granulocytes/100 WB C Auto (Bld)Ordered By: Trina Tyler on 12-10-2024 Immature granulocytes/100 WBC (Bld) 0.400 % 0.0-0.9 [facility] Lipid Profileon 12-10-2024 Cholesterol [Mass/Vol] 189 mg/dL Normal 200 [facility] Comment on above: Result Comment: <200 mg/dL Desirable 200-240 mg/dL Borderline >240 mg/dL High Risk Performed By: #### L 100.0100, L500.2500, L501.9520, L500.4100 ####[facility] [address] [place], [address] Cholesterol in HDL [Mass/Vol] 49 mg/dL Normal [facility] Comment on above: Result Comment: The drugs N-Acetylcysteine and Metamizole may falselydepress this assay. Reference Range HDL <40 mg/dL Low HDL Cholesterol HDL >or= 60 mg/dL High HDL Cholesterol Performed By: #### L 100.0100, L500.2500, L501.9520, L500.4100 ####[facility] [address] [place], [address] Cholesterol in LDL [Mass/Vol] 119 mg/dL Normal 0-130 [facility] Comment on above: Performed By: #### L 100.0100, L500.2500, L501.9520, L500.4100 ####[facility] [address] [place], [address] Cholesterol in VLDL [Mass/Vol] 21 mg/dL Normal 5-40 [facility] Comment on above: Performed By: #### L 100.0100, L500.2500, L501.9520, L500.4100 ####[facility] [address] [place], [address] Triglyceride [Mass/Vol] 106 mg/dL Normal [facility] Comment on above: Result Comment: The drugs N-Acetylcysteine and Metamizole may falselydepress this assay.Serum Triglycerides Reference Interval Normal <150 mg/dL Borderline high 150 - 199 mg/dL High 200 - 499 mg/dL Very High > or = 500 mg/dL Performed By: #### L 100.0100, L500.2500, L501.9520, L500.4100 ####[facility] [address] [place], [place], [id number] Low density lipoprotein (LDL ) cholesterol measurementOrdered By: Trina Tyler on 12-10-2024 Low density lipoprotein (LDL) cholesterol measurement 119 mg/dL 0-130 [facility] Monocyte percentageOrdered B y: Trina Tyler on 12-10-2024 Monocytes/100 WBC (Bld) 7.4 % 0-10 [facility] Neutrophil percentageOrdered By: Trina Tyler on 12-10-2024 Neutrophils/100 WBC (Bld) 79.4 % High 47-70 [facility] Serum or plasma cholesterol measurement (mass/volume)Ordered By: Trina Tyler on 12-10-2024 Cholesterol [Mass/Vol] 189 mg/dL <200 [facility] Serum or plasma thyroid stim ulating hormone (TSH) measurement (units/volume)Ordered By: Trina Tyler on 12-10-2024 TSH Qn 0.715 uIU/mL 0.358-3.74 0 [facility] Thyroid Stim Hormone (TSH)on 12-10-2024 TSH 0.715 uIU/mL Normal 0.358-3.74 0 [facility] Comment on above: Performed By: #### L 100.0100, L500.2500, L501.9520, L500.4100 ####[facility] [address] [place], [place], [id number] Very low density lipoprotein (VLDL) cholesterol measurementOrdered By: Trina Tyler on 12-10-2024 Very low density lipoprotein (VLDL) cholesterol measurement 21 mg/dL 5-40 [facility] 12 Lead EKGon 12-09-2024 12 Lead EKG Normal [facility] 12 Lead EKG Normal [facility] 12 Lead EKG Normal [facility] Basic Metabolic Profile (BMP )on 12-09-2024 BUN/CRE 14.3 RATIO Normal 10-20 [facility] Comment on above: Order Comment: 1Y Performed By: #### L 501.5425, L501.5200, L500.2500, L100.0100 ####[facility] [address] [place], [address] CA,Total 9.8 mg/dL Normal 8.5-10.1 [facility] Comment on above: Order Comment: 1Y Performed By: #### L 501.5425, L501.5200, L500.2500, L100.0100 ####[facility] [address] [place], [address] Chloride [Moles/Vol] 104 mmol/L Normal 98-107 [facility] Comment on above: Order Comment: 1Y Performed By: #### L 501.5425, L501.5200, L500.2500, L100.0100 ####[facility] [address] [place], [address] CO2 [Moles/Vol] 26.0 mmol/L Normal 21.0-32.0 [facility] Comment on above: Order Comment: 1Y Performed By: #### L 501.5425, L501.5200, L500.2500, L100.0100 ####[facility] [address] [place], [address] Creatinine [Mass/Vol] 1.26 mg/dL High 0.55-1.02 [facility] Comment on above: Order Comment: 1Y Result Comment: The validity of the calculated GFR GFRAA in patients over70 years has not been determined. Clinical correlation isessential. Performed By: #### L 501.5425, L501.5200, L500.2500, L100.0100 ####[facility] [address] [place], [address] ECRCL 29.84 ml/min Normal [facility] Comment on above: Order Comment: 1Y Performed By: #### L 501.5425, L501.5200, L500.2500, L100.0100 ####[facility] [address] [place], [address] EST GFR - AA 54 mL/min Low >60 [facility] Comment on above: Order Comment: 1Y Result Comment: Afri can Macanese GFR Calc Performed By: #### L 501.5425, L501.5200, L500.2500, L100.0100 ####[facility] [address] [place], [address] GAP 8 Normal 5-15 [facility] Comment on above: Order Comment: 1Y Performed By: #### L 501.5425, L501.5200, L500.2500, L100.0100 ####[facility] [address] [place], [address] GFR/1.73 sq M.predicted among non-blacks MDRD (S/P/Bld) [Vol rate/Area] 45 mL/min/{1.73_m2} Low >60 [facility] Comment on above: Order Comment: 1Y Result Comment: Non- GFR Calc Performed By: #### L 501.5425, L501.5200, L500.2500, L100.0100 ####[facility] [address] [place], [address] Glucose [Mass/Vol] 118 mg/dL High 74-106 [facility] Comment on above: Order Comment: 1Y Result Comment: Fast ing Glucose result from 100 to 125 mg/dLsuggests IMPAIRED HOMEOSTASIS per A.D.A. criteria. Performed By: #### L 501.5425, L501.5200, L500.2500, L100.0100 ####[facility] [address] [place], [address] Potassium [Moles/Vol] 3.8 mmol/L Normal 3.5-5.1 [facility] Comment on above: Order Comment: 1Y Performed By: #### L 501.5425, L501.5200, L500.2500, L100.0100 ####[facility] [address] [place], [address] Sodium [Moles/Vol] 138 mmol/L Normal 136-145 [facility] Comment on above: Order Comment: 1Y Performed By: #### L 501.5425, L501.5200, L500.2500, L100.0100 ####[facility] [address] [place], [address] Urea nitrogen [Mass/Vol] 18 mg/dL Normal 7-18 [facility] Comment on above: Order Comment: 1Y Performed By: #### L 501.5425, L501.5200, L500.2500, L100.0100 ####[facility] [address] [place], [address] Brain/Head without Contrasto n 12-09-2024 Brain/Head without Contrast Normal [facility] CBC W/Diff, Automatedon -12 20-2024 Absolute Lymph 0.84 X10 3/uL Normal 0.83-4.51 [facility] Comment on above: Performed By: #### L 501.5425, L501.5200, L500.2500, L100.0100 ####[facility] [address] [place], [address] Absolute Neut 7.9 X10 3/uL High 2.0-7.7 [facility] Comment on above: Performed By: #### L 501.5425, L501.5200, L500.2500, L100.0100 ####[facility] [address] [place], [address] Basophils/100 WBC (Bld) 0.6 % Normal 0-1 [facility] Comment on above: Performed By: #### L 501.5425, L501.5200, L500.2500, L100.0100 ####[facility] [address] [place], [address] Eosinophils/100 WBC (Bld) 1.1 % Normal 0-5 [facility] Comment on above: Performed By: #### L 501.5425, L501.5200, L500.2500, L100.0100 ####[facility] [address] [place], [address] Erythrocyte distribution width (RBC) [Ratio] 15.7 % High 11.6-14.6 [facility] Comment on above: Performed By: #### L 501.5425, L501.5200, L500.2500, L100.0100 ####[facility] [address] [place], [address] Hematocrit (Bld) [Volume fraction] 41.9 % Normal 37-47 [facility] Comment on above: Performed By: #### L 501.5425, L501.5200, L500.2500, L100.0100 ####[facility] [address] [place], [address] Hemoglobin (Bld) [Mass/Vol] 13.5 g/dL Normal 12.0-15.0 [facility] Comment on above: Performed By: #### L 501.5425, L501.5200, L500.2500, L100.0100 ####[facility] [address] [place], [address] IG% 0.600 Normal 0.0-0.9 [facility] Comment on above: Result Comment: IG% - Immature Granulocytes (promyelocytes, myelocytes andmetamyelocytes) > 1% indicates that a LEFT SHIFT is Present. Performed By: #### L 501.5425, L501.5200, L500.2500, L100.0100 ####[facility] [address] [place], [address] Lymphocytes/100 WBC (Bld) 8.7 % Low 19-41 [facility] Comment on above: Performed By: #### L 501.5425, L501.5200, L500.2500, L100.0100 ####[facility] [address] [place], [address] MCH (RBC) [Entitic mass] 27.2 pg Normal 27.0-32.0 [facility] Comment on above: Performed By: #### L 501.5425, L501.5200, L500.2500, L100.0100 ####[facility] [address] [place], [address] MCHC (RBC) [Mass/Vol] 32.2 g/dL Normal 32-36 [facility] Comment on above: Performed By: #### L 501.5425, L501.5200, L500.2500, L100.0100 ####[facility] [address] [place], [address] MCV (RBC) [Entitic vol] 84.3 fL Normal 81-99 [facility] Comment on above: Performed By: #### L 501.5425, L501.5200, L500.2500, L100.0100 ####[facility] [address] [place], [address] Monocytes/100 WBC (Bld) 6.8 % Normal 0-10 [facility] Comment on above: Performed By: #### L 501.5425, L501.5200, L500.2500, L100.0100 ####[facility] [address] [place], [address] Neutrophils/100 WBC (Bld) 82.2 % High 47-70 [facility] Comment on above: Performed By: #### L 501.5425, L501.5200, L500.2500, L100.0100 ####[facility] [address] [place], [address] Nucleated RBC (Bld) [#/Vol] 0 10*3/uL Normal 0-5 [facility] Comment on above: Performed By: #### L 501.5425, L501.5200, L500.2500, L100.0100 ####[facility] [address] [place], [address] Platelet mean volume (Bld) [Entitic vol] 10.2 fL Normal 6.2-12.0 [facility] Comment on above: Performed By: #### L 501.5425, L501.5200, L500.2500, L100.0100 ####[facility] [address] [place], [address] Platelets (Bld) [#/Vol] 191 10*3/uL Normal 150-450 [facility] Comment on above: Performed By: #### L 501.5425, L501.5200, L500.2500, L100.0100 ####[facility] [address] [place], [address] RBC (Bld) [#/Vol] 4.97 10*6/uL Normal 4.2-5.4 [facility] Comment on above: Performed By: #### L 501.5425, L501.5200, L500.2500, L100.0100 ####[facility] [address] [place], [address] RDW SD 48.3 fl High 35.1-43.9 [facility] Comment on above: Performed By: #### L 501.5425, L501.5200, L500.2500, L100.0100 ####[facility] [address] [place], [address] WBC (Bld) [#/Vol] 9.6 10*3/uL Normal 4.4-11.0 [facility] Comment on above: Performed By: #### L 501.5425, L501.5200, L500.2500, L100.0100 ####[facility] [address] [place], [address] Chest 1 View (Portable)on Chest 1 View (Portable) Normal [facility] Echo Complete W/ Contraston 12-09-2024 Echo Complete W/ Contrast Normal [facility] Emergency Department Summary on 12-09-2024 Emergency Department Summary Normal [facility] H AND P Exam - Hospitaliston 12-09-2024 H&P Exam - Hospitalist Normal [facility] L501.4020on 12-09-2024 TROPONIN-I HS 72 pg/mL High 3.0-54.0 [facility] Comment on above: Order Comment: 'TROP ' Serial specimen #1, #2 or #3: 3 Result Comment: Plea se Note: New Test Units and Gender Specific Reference Ranges. For more information see Policy Stat Procedure [place] High Sensitivity Troponin (TNIH) and attachments. Performed By: #### L 501.4020 ####[facility] [address] [place], [address] TROPONIN-I HS 74 pg/mL High 3.0-54.0 [facility] Comment on above: Result Comment: Plea se Note: New Test Units and Gender Specific Reference Ranges. For more information see Policy Stat Procedure [place] High Sensitivity Troponin (TNIH) and attachments. Performed By: #### L 501.4020 ####[facility] [address] [place], [address] L501.5425on 12-09-2024 TROPONIN-I HS 91 pg/mL High 3.0-54.0 [facility] Comment on above: Order Comment: 1Y Result Comment: Plea se Note: New Test Units and Gender Specific Reference Ranges. For more information see Policy Stat Procedure [place] High Sensitivity Troponin (TNIH) and attachments. Performed By: #### L 501.5425, L501.5200, L500.2500, L100.0100 ####[facility] [address] [place], [address] Magnesiumon 12-09-2024 Magnesium [Mass/Vol] 2.3 mg/dL Normal 1.6-2.6 [facility] Comment on above: Order Comment: 1Y Performed By: #### L 501.5425, L501.5200, L500.2500, L100.0100 ####[facility] [address] [place], [address] Magnesium measurementOrdered By: Nuno Grider on 12-09-2024 Magnesium [Mass/Vol] 2.3 mg/dL 1.6-2.6 [facility] Troponin IOrdered By: Trina Tyler on 12-09-2024 Troponin I 72 pg/mL High 3.0-54.0 [facility] 12 Lead EKGon 11-28-2024 12 Lead EKG Normal [facility] Basic Metabolic Profile (BMP )on 11-28-2024 BUN/CRE 14.9 RATIO Normal 10-20 [facility] Comment on above: Performed By: #### L 300.8000, L100.0100, L500.2500 ####[facility] [address] [place], [address] CA,Total 9.5 mg/dL Normal 8.5-10.1 [facility] Comment on above: Performed By: #### L 300.8000, L100.0100, L500.2500 ####[facility] [address] [place], [address] Chloride [Moles/Vol] 105 mmol/L Normal 98-107 [facility] Comment on above: Performed By: #### L 300.8000, L100.0100, L500.2500 ####[facility] [address] [place], [address] CO2 [Moles/Vol] 26.0 mmol/L Normal 21.0-32.0 [facility] Comment on above: Performed By: #### L 300.8000, L100.0100, L500.2500 ####[facility] [address] [place], [address] Creatinine [Mass/Vol] 1.14 mg/dL High 0.55-1.02 [facility] Comment on above: Result Comment: The validity of the calculated GFR GFRAA in patients over70 years has not been determined. Clinical correlation isessential. Performed By: #### L 300.8000, L100.0100, L500.2500 ####[facility] [address] [place], [address] ECRCL 39.22 ml/min Normal [facility] Comment on above: Performed By: #### L 300.8000, L100.0100, L500.2500 ####[facility] [address] [place], [address] EST GFR - AA 61 mL/min Normal >60 [facility] Comment on above: Result Comment: Afri can Macanese GFR Calc Performed By: #### L 300.8000, L100.0100, L500.2500 ####[facility] [address] [place], [address] GAP 7 Normal 5-15 [facility] Comment on above: Performed By: #### L 300.8000, L100.0100, L500.2500 ####[facility] [address] [place], [address] GFR/1.73 sq M.predicted among non-blacks MDRD (S/P/Bld) [Vol rate/Area] 50 mL/min/{1.73_m2} Low >60 [facility] Comment on above: Result Comment: Non- GFR Calc Performed By: #### L 300.8000, L100.0100, L500.2500 ####[facility] [address] [place], [address] Glucose [Mass/Vol] 107 mg/dL High 74-106 [facility] Comment on above: Result Comment: Fast ing Glucose result from 100 to 125 mg/dLsuggests IMPAIRED HOMEOSTASIS per A.D.A. criteria. Performed By: #### L 300.8000, L100.0100, L500.2500 ####[facility] [address] [place], [address] Potassium [Moles/Vol] 3.2 mmol/L Low 3.5-5.1 [facility] Comment on above: Performed By: #### L 300.8000, L100.0100, L500.2500 ####[facility] [address] [place], [address] Sodium [Moles/Vol] 138 mmol/L Normal 136-145 [facility] Comment on above: Performed By: #### L 300.8000, L100.0100, L500.2500 ####[facility] [address] [place], [address] Urea nitrogen [Mass/Vol] 17 mg/dL Normal 7-18 [facility] Comment on above: Performed By: #### L 300.8000, L100.0100, L500.2500 ####[facility] [address] [place], [address] Brain/Head without Contrasto n 11-28-2024 Brain/Head without Contrast Normal [facility] CBC W/Diff, Automatedon 11-19 0-2024 Absolute Lymph 2.10 X10 3/uL Normal 0.83-4.51 [facility] Comment on above: Performed By: #### L 300.8000, L100.0100, L500.2500 ####[facility] [address] [place], [address] Absolute Neut 5.8 X10 3/uL Normal 2.0-7.7 [facility] Comment on above: Performed By: #### L 300.8000, L100.0100, L500.2500 ####[facility] [address] [place], [address] Basophils/100 WBC (Bld) 0.8 % Normal 0-1 [facility] Comment on above: Performed By: #### L 300.8000, L100.0100, L500.2500 ####[facility] [address] [place], [address] Eosinophils/100 WBC (Bld) 2.3 % Normal 0-5 [facility] Comment on above: Performed By: #### L 300.8000, L100.0100, L500.2500 ####[facility] [address] [place], [address] Erythrocyte distribution width (RBC) [Ratio] 15.8 % High 11.6-14.6 [facility] Comment on above: Performed By: #### L 300.8000, L100.0100, L500.2500 ####[facility] [address] [place], [address] Hematocrit (Bld) [Volume fraction] 40.3 % Normal 37-47 [facility] Comment on above: Performed By: #### L 300.8000, L100.0100, L500.2500 ####[facility] [address] [place], [address] Hemoglobin (Bld) [Mass/Vol] 13.1 g/dL Normal 12.0-15.0 [facility] Comment on above: Performed By: #### L 300.8000, L100.0100, L500.2500 ####[facility] [address] [place], [address] IG% 0.400 Normal 0.0-0.9 [facility] Comment on above: Result Comment: IG% - Immature Granulocytes (promyelocytes, myelocytes andmetamyelocytes) > 1% indicates that a LEFT SHIFT is Present. Performed By: #### L 300.8000, L100.0100, L500.2500 ####[facility] [address] [place], [address] Lymphocytes/100 WBC (Bld) 23.0 % Normal 19-41 [facility] Comment on above: Performed By: #### L 300.8000, L100.0100, L500.2500 ####[facility] [address] [place], [address] MCH (RBC) [Entitic mass] 27.1 pg Normal 27.0-32.0 [facility] Comment on above: Performed By: #### L 300.8000, L100.0100, L500.2500 ####[facility] [address] [place], [address] MCHC (RBC) [Mass/Vol] 32.5 g/dL Normal 32-36 [facility] Comment on above: Performed By: #### L 300.8000, L100.0100, L500.2500 ####[facility] [address] [place], [address] MCV (RBC) [Entitic vol] 83.4 fL Normal 81-99 [facility] Comment on above: Performed By: #### L 300.8000, L100.0100, L500.2500 ####[facility] [address] [place], [address] Monocytes/100 WBC (Bld) 10.2 % High 0-10 [facility] Comment on above: Performed By: #### L 300.8000, L100.0100, L500.2500 ####[facility] [address] [place], [address] Neutrophils/100 WBC (Bld) 63.3 % Normal 47-70 [facility] Comment on above: Performed By: #### L 300.8000, L100.0100, L500.2500 ####[facility] [address] [place], [address] Nucleated RBC (Bld) [#/Vol] 0 10*3/uL Normal 0-5 [facility] Comment on above: Performed By: #### L 300.8000, L100.0100, L500.2500 ####[facility] [address] [place], [address] Platelet mean volume (Bld) [Entitic vol] 10.2 fL Normal 6.2-12.0 [facility] Comment on above: Performed By: #### L 300.8000, L100.0100, L500.2500 ####[facility] [address] [place], [address] Platelets (Bld) [#/Vol] 204 10*3/uL Normal 150-450 [facility] Comment on above: Performed By: #### L 300.8000, L100.0100, L500.2500 ####[facility] [address] [place], [address] RBC (Bld) [#/Vol] 4.83 10*6/uL Normal 4.2-5.4 [facility] Comment on above: Performed By: #### L 300.8000, L100.0100, L500.2500 ####[facility] [address] [place], [address] RDW SD 47.8 fl High 35.1-43.9 [facility] Comment on above: Performed By: #### L 300.8000, L100.0100, L500.2500 ####[facility] [address] [place], [address] WBC (Bld) [#/Vol] 9.1 10*3/uL Normal 4.4-11.0 [facility] Comment on above: Performed By: #### L 300.8000, L100.0100, L500.2500 ####[facility] [address] [place], [address] D-Dimer Quantitative (DVT/PE )on 11-28-2024 D-DIMER QUANT 0.40 FEU/ug/m Normal 0.27-0.49 [facility] Comment on above: Result Comment: NORM AL D-Dimer level (<0.50) indicates no DVT or PE. Performed By: #### L 300.8000, L100.0100, L500.2500 ####[facility] [address] [place], [address] Emergency Department Summary on 11-28-2024 Emergency Department Summary Normal [facility] Cardiology Visit Reporton Cardiology Visit Report Normal [facility] 36on 11-20-2024 36 Patient called in an [...] tab): 09/15/24 Updated/Validated preferred pharmacy: [id number] - [facility] [address] [facility] Patient instructed to contact the pharmacy prior to picking up the medication: Yes Normal [facility] 36 Last ov-12/14/23 Next ov- N/A Normal [facility] Pulmonary Visit Reporton Pulmonary Visit Report Normal [facility] 6 Minute Walk Teston 024 6 Minute Walk Test Normal [facility] Low Dose CT Lung Screeningon 10-03-[address] Lung Screening Normal [facility] 36on 09-15-2024 36 patient has been not ified of providers message. She will call back to schedule the appointment Normal [facility] 36 Refill for baclofen sent. Patient needs to schedule a follow up; in November it will be one year since she has last see. Normal [facility] 36 Last ov- 12/14/23 Next ov- n/a Normal [facility] Abd Aortic/IVC Duplex scanon 08-27-2024 Abd Aortic/IVC Duplex scan Normal [facility] Ankle Brachial Indexon 08-27 Ankle Brachial Index Normal [facility] Pulmonary Visit Reporton Pulmonary Visit Report Normal [facility] CBC W/Diff, Automatedon 07-21 Absolute Lymph 1.25 X10 3/uL Normal 0.83-4.51 [facility] Comment on above: Order Comment: Inter face Comments:cc copy to Dr. Nicola Hernandez, Vascular SurgeonOrder Date: 08/14/24Order Info: [id number] - CBCDComments: cc copy to Dr. Nicola Hernandez, Vascular Surgeon Performed By: #### L 100.0100, L503.6550, L500.4050, L503.6030 ####[facility] [address] [place], [address] Absolute Neut 4.6 X10 3/uL Normal 2.0-7.7 [facility] Comment on above: Order Comment: Inter face Comments:cc copy to Dr. Nicola Hernandez, Vascular SurgeonOrder Date: 08/14/24Order Info: [id number] - CBCDComments: cc copy to Dr. Nicola Hernandez, Vascular Surgeon Performed By: #### L 100.0100, L503.6550, L500.4050, L503.6030 ####[facility] [address] [place], [address] Basophils/100 WBC (Bld) 0.7 % Normal 0-1 [facility] Comment on above: Order Comment: Inter face Comments:cc copy to Dr. Nicola Hernandez, Vascular SurgeonOrder Date: 08/14/24Order Info: [id number] - CBCDComments: cc copy to Dr. Nicola Hernandez, Vascular Surgeon Performed By: #### L 100.0100, L503.6550, L500.4050, L503.6030 ####[facility] [address] [place], [address] Eosinophils/100 WBC (Bld) 5.6 % High 0-5 [facility] Comment on above: Order Comment: Inter face Comments:cc copy to Dr. Nicola Hernandez Vascular SurgeonOrder Date: 08/14/24Order Info: [id number] - CBCDComments: cc copy to Dr. Nicola Hernandez, Vascular Surgeon Performed By: #### L 100.0100, L503.6550, L500.4050, L503.6030 ####[facility] [address] [place], [address] Erythrocyte distribution width (RBC) [Ratio] 15.4 % High 11.6-14.6 [facility] Comment on above: Order Comment: Inter face Comments:cc copy to Dr. Nicola Hernandez, Vascular SurgeonOrder Date: 08/14/24Order Info: [id number] - CBCDComments: cc copy to Dr. Nicola Hernandez, Vascular Surgeon Performed By: #### L 100.0100, L503.6550, L500.4050, L503.6030 ####[facility] [address] [place], [address] Hematocrit (Bld) [Volume fraction] 39.2 % Normal 37-47 [facility] Comment on above: Order Comment: Inter face Comments:cc copy to Dr. Nicola Hernandez Vascular SurgeonOrder Date: 08/14/24Order Info: [id number] - CBCDComments: cc copy to Dr. Nicola Hernandez Vascular Surgeon Performed By: #### L 100.0100, L503.6550, L500.4050, L503.6030 ####[facility] [address] [place], [address] Hemoglobin (Bld) [Mass/Vol] 12.1 g/dL Normal 12.0-15.0 [facility] Comment on above: Order Comment: Inter face Comments:cc copy to Dr. Nicola Hernandez Vascular SurgeonOrder Date: 08/14/24Order Info: [id number] - CBCDComments: cc copy to Dr. Nicola Hernandez Vascular Surgeon Performed By: #### L 100.0100, L503.6550, L500.4050, L503.6030 ####[facility] [address] [place], [address] IG% 0.300 Normal 0.0-0.9 [facility] Comment on above: Order Comment: Inter face Comments:cc copy to Dr. Nicola Hernandez Vascular SurgeonOrder Date: 08/14/24Order Info: [id number] - CBCDComments: cc copy to Dr. Nicola Hernandez Vascular Surgeon Result Comment: IG% - Immature Granulocytes (promyelocytes, myelocytes andmetamyelocytes) > 1% indicates that a LEFT SHIFT is Present. Performed By: #### L 100.0100, L503.6550, L500.4050, L503.6030 ####[facility] [address] [place], [address] Lymphocytes/100 WBC (Bld) 17.8 % Low 19-41 [facility] Comment on above: Order Comment: Inter face Comments:cc copy to Dr. Nicola Hernandez Vascular SurgeonOrder Date: 08/14/24Order Info: [id number] - CBCDComments: cc copy to Dr. Nicola Hernandez Vascular Surgeon Performed By: #### L 100.0100, L503.6550, L500.4050, L503.6030 ####[facility] [address] [place], [address] MCH (RBC) [Entitic mass] 27.9 pg Normal 27.0-32.0 [facility] Comment on above: Order Comment: Inter face Comments:cc copy to Dr. Nicola Hernandez Vascular SurgeonOrder Date: 08/14/24Order Info: [id number] - CBCDComments: cc copy to Dr. Nicola Hernandez Vascular Surgeon Performed By: #### L 100.0100, L503.6550, L500.4050, L503.6030 ####[facility] [address] [place], [address] MCHC (RBC) [Mass/Vol] 30.9 g/dL Low 32-36 [facility] Comment on above: Order Comment: Inter face Comments:cc copy to Dr. Nicola Hernandez Vascular SurgeonOrder Date: 08/14/24Order Info: [id number] - CBCDComments: cc copy to Dr. Nicola Hernandez Vascular Surgeon Performed By: #### L 100.0100, L503.6550, L500.4050, L503.6030 ####[facility] [address] [place], [address] MCV (RBC) [Entitic vol] 90.5 fL Normal 81-99 [facility] Comment on above: Order Comment: Inter face Comments:cc copy to Dr. Nicola Hernandez Vascular SurgeonOrder Date: 08/14/24Order Info: [id number] - CBCDComments: cc copy to Dr. Nicola Hernandez, Vascular Surgeon Performed By: #### L 100.0100, L503.6550, L500.4050, L503.6030 ####[facility] [address] [place], [address] Monocytes/100 WBC (Bld) 9.4 % Normal 0-10 [facility] Comment on above: Order Comment: Inter face Comments:cc copy to Dr. Nicola Hernandez Vascular SurgeonOrder Date: 08/14/24Order Info: [id number] - CBCDComments: cc copy to Dr. Nicola Hernandez Vascular Surgeon Performed By: #### L 100.0100, L503.6550, L500.4050, L503.6030 ####[facility] [address] [place], [address] Neutrophils/100 WBC (Bld) 66.2 % Normal 47-70 [facility] Comment on above: Order Comment: Inter face Comments:cc copy to Dr. Nicola Hernandez Vascular SurgeonOrder Date: 08/14/24Order Info: [id number]- - CBCDComments: cc copy to Dr. Nicola Hernandez Vascular Surgeon Performed By: #### L 100.0100, L503.6550, L500.4050, L503.6030 ####[facility] [address] [place], [address] Nucleated RBC (Bld) [#/Vol] 0 10*3/uL Normal 0-5 [facility] Comment on above: Order Comment: Inter face Comments:cc copy to Dr. Nicola Hernandez Vascular SurgeonOrder Date: 08/14/24Order Info: [id number] - CBCDComments: cc copy to Dr. Nicola Hernandez, Vascular Surgeon Performed By: #### L 100.0100, L503.6550, L500.4050, L503.6030 ####[facility] [address] [place], [address] Platelet mean volume (Bld) [Entitic vol] 10.9 fL Normal 6.2-12.0 [facility] Comment on above: Order Comment: Inter face Comments:cc copy to Dr. Nicola Hernandez Vascular SurgeonOrder Date: 08/14/24Order Info: 018- - CBCDComments: cc copy to Dr. Nicola Hernandez Vascular Surgeon Performed By: #### L 100.0100, L503.6550, L500.4050, L503.6030 ####[facility] [address] [place], [address] Platelets (Bld) [#/Vol] 160 10*3/uL Normal 150-450 [facility] Comment on above: Order Comment: Inter face Comments:cc copy to Dr. Nicola Hernandez Vascular SurgeonOrder Date: 08/14/24Order Info: 018- - CBCDComments: cc copy to Dr. Nicola Hernandez Vascular Surgeon Performed By: #### L 100.0100, L503.6550, L500.4050, L503.6030 ####[facility] [address] [place], [address] RBC (Bld) [#/Vol] 4.33 10*6/uL Normal 4.2-5.4 [facility] Comment on above: Order Comment: Inter face Comments:cc copy to Dr. Nicola Hernandez Vascular SurgeonOrder Date: 08/14/24Order Info: [id number] - CBCDComments: cc copy to Dr. Nicola Hernandez, Vascular Surgeon Performed By: #### L 100.0100, L503.6550, L500.4050, L503.6030 ####[facility] [address] [place], [address] RDW SD 51.4 fl High 35.1-43.9 [facility] Comment on above: Order Comment: Inter face Comments:cc copy to Dr. Nicola Hernandez Vascular SurgeonOrder Date: 08/14/24Order Info: 018- - CBCDComments: cc copy to Dr. Nicola Hernandez, Vascular Surgeon Performed By: #### L 100.0100, L503.6550, L500.4050, L503.6030 ####[facility] [address] [place], [address] WBC (Bld) [#/Vol] 7.0 10*3/uL Normal 4.4-11.0 [facility] Comment on above: Order Comment: Inter face Comments:cc copy to Dr. Nicola Hernandez Vascular SurgeonOrder Date: 08/14/24Order Info: 018- - CBCDComments: cc copy to Dr. Nicola Hernandez Vascular Surgeon Performed By: #### L 100.0100, L503.6550, L500.4050, L503.6030 ####[facility] [address] [place], [address] Comprehensive Metabolic Prof ilon 08-14-2024 Albumin [Mass/Vol] 3.3 g/dL Normal 3.2-5.0 [facility] Comment on above: Order Comment: Inter face Comments:cc copy to Dr. Nicola Hernandez Vascular SurgeonOrder Date: 08/14/24Order Info: [id number] - CMPOrder Info: [id number] - TSHOrder Info: [id number] - IBCOrder Info: [id number] - FERComments: cc copy to Dr. Nicola Hernandez Vascular SurgeonOrder Info: [id number] - T4Fcc copy to Dr. Nicola Hernandez Vascular Surgeon Performed By: #### L 100.0100, L503.6550, L500.4050, L503.6030 ####[facility] [address] [place], [address] Albumin/Globulin [Mass ratio] 1.0 {ratio} Normal 0.9-2.4 [facility] Comment on above: Order Comment: Inter face Comments:cc copy to Dr. Nicola Hernandez Vascular SurgeonOrder Date: 08/14/24Order Info: [id number] - CMPOrder Info: [id number] - TSHOrder Info: [id number] - IBCOrder Info: [id number] - FERComments: cc copy to Dr. Nicola Hernandez Vascular SurgeonOrder Info: [id number] - T4Fcc copy to Dr. Nicola Hernandez, Vascular Surgeon Performed By: #### L 100.0100, L503.6550, L500.4050, L503.6030 ####[facility] [address] [place], [address] ALK P 128 U/L High 45-117 [facility] Comment on above: Order Comment: Inter face Comments:cc copy to Dr. Nicola Hernandez Vascular SurgeonOrder Date: 08/14/24Order Info: 1 - CMPOrder Info: [id number] - TSHOrder Info: [id number] - IBCOrder Info: [id number] - FERComments: cc copy to Dr. Nicola Hernandez Vascular SurgeonOrder Info: [id number] - T4Fcc copy to Dr. Nicola Hernandez, Vascular Surgeon Performed By: #### L 100.0100, L503.6550, L500.4050, L503.6030 ####[facility] [address] [place], [address] ALT [Catalytic activity/Vol] 14 U/L Normal 13-56 [facility] Comment on above: Order Comment: Inter face Comments:cc copy to Dr. Nicola Hernandez Vascular SurgeonOrder Date: 08/14/24Order Info: [id number] - CMPOrder Info: 6-3 - TSHOrder Info: [id number] - IBCOrder Info: [id number] - FERComments: cc copy to Dr. Nicola Hernandez Vascular SurgeonOrder Info: [id number] - T4Fcc copy to Dr. Nicola Hernandez, Vascular Surgeon Performed By: #### L 100.0100, L503.6550, L500.4050, L503.6030 ####[facility] [address] [place], [address] AST [Catalytic activity/Vol] 12 U/L Low 15-37 [facility] Comment on above: Order Comment: Inter face Comments:cc copy to Dr. Nicola Hernandez Vascular SurgeonOrder Date: 08/14/24Order Info: [id number] - CMPOrder Info: [id number] - TSHOrder Info: [id number] - IBCOrder Info: [id number] - FERComments: cc copy to Dr. Nicola Hernandez Vascular SurgeonOrder Info: [id number] - T4Fcc copy to Dr. Nicola Hernandez, Vascular Surgeon Performed By: #### L 100.0100, L503.6550, L500.4050, L503.6030 ####[facility] [address] [place], [address] Bilirubin [Mass/Vol] 0.30 mg/dL Normal 0.20-1.00 [facility] Comment on above: Order Comment: Inter face Comments:cc copy to Dr. Nicola Hernandez Vascular SurgeonOrder Date: 08/14/24Order Info: [id number] - CMPOrder Info: 6-3 - TSHOrder Info: [id number] - IBCOrder Info: [id number] - FERComments: cc copy to Dr. Nicola Hernandez Vascular SurgeonOrder Info: [id number] - T4Fcc copy to Dr. Nicola Hernandez, Vascular Surgeon Result Comment: For patients on eltrombopag therapy, use of Dimension Buda TBIL is not recommended. Performed By: #### L 100.0100, L503.6550, L500.4050, L503.6030 ####[facility] [address] [place], [address] BUN/CRE 14.5 RATIO Normal 10-20 [facility] Comment on above: Order Comment: Inter face Comments:cc copy to Dr. Nicola Hernandez, Vascular SurgeonOrder Date: 08/14/24Order Info: [id number] - CMPOrder Info: [id number] - TSHOrder Info: [id number] - IBCOrder Info: [id number] - FERComments: cc copy to Dr. Nicola Hernandez, Vascular SurgeonOrder Info: 3024-7 - T4Fcc copy to Dr. Nicola Hernandez, Vascular Surgeon Performed By: #### L 100.0100, L503.6550, L500.4050, L503.6030 ####[facility] [address] [place], [address] CA,Total 9.3 mg/dL Normal 8.5-10.1 [facility] Comment on above: Order Comment: Inter face Comments:cc copy to Dr. Nicola Hernandez Vascular SurgeonOrder Date: 08/14/24Order Info: [id number] - CMPOrder Info: [id number] - TSHOrder Info: [id number] - IBCOrder Info: [id number] - FERComments: cc copy to Dr. Nicola Hernandez, Vascular SurgeonOrder Info: 3024-7 - T4Fcc copy to Dr. Nicola Hernandez, Vascular Surgeon Performed By: #### L 100.0100, L503.6550, L500.4050, L503.6030 ####[facility] [address] [place], [address] Chloride [Moles/Vol] 107 mmol/L Normal 98-107 [facility] Comment on above: Order Comment: Inter face Comments:cc copy to Dr. Nicola Hernandez Vascular SurgeonOrder Date: 08/14/24Order Info: [id number] - CMPOrder Info: [id number] - TSHOrder Info: [id number] - IBCOrder Info: [id number] - FERComments: cc copy to Dr. Nicola Hernandez Vascular SurgeonOrder Info: 3024-7 - T4Fcc copy to Dr. Nicola Hernandez Vascular Surgeon Performed By: #### L 100.0100, L503.6550, L500.4050, L503.6030 ####[facility] [address] [place], [address] CO2 [Moles/Vol] 28.0 mmol/L Normal 21.0-32.0 [facility] Comment on above: Order Comment: Inter face Comments:cc copy to Dr. Nicola Hernandez Vascular SurgeonOrder Date: 08/14/24Order Info: [id number] - CMPOrder Info: 3 - TSHOrder Info: [id number] - IBCOrder Info: [id number] - FERComments: cc copy to Dr. Nicola Hernandez Vascular SurgeonOrder Info: [id number] - T4Fcc copy to Dr. Nicola Hernandez Vascular Surgeon Performed By: #### L 100.0100, L503.6550, L500.4050, L503.6030 ####[facility] [address] [place], [address] Creatinine [Mass/Vol] 1.10 mg/dL High 0.55-1.02 [facility] Comment on above: Order Comment: Inter face Comments:cc copy to Dr. Nicola Hernandez Vascular SurgeonOrder Date: 08/14/24Order Info: [id number] - CMPOrder Info: [id number] - TSHOrder Info: [id number] - IBCOrder Info: [id number] - FERComments: cc copy to Dr. Nicola Hernandez Vascular SurgeonOrder Info: 3024-7 - T4Fcc copy to Dr. Nicola Hernandez Vascular Surgeon Result Comment: The validity of the calculated GFR GFRAA in patients over70 years has not been determined. Clinical correlation isessential. Performed By: #### L 100.0100, L503.6550, L500.4050, L503.6030 ####[facility] [address] [place], [address] EST GFR - AA 63 mL/min Normal >60 [facility] Comment on above: Order Comment: Inter face Comments:cc copy to Dr. Nicola Hernandez Vascular SurgeonOrder Date: 08/14/24Order Info: [id number] - CMPOrder Info: [id number] - TSHOrder Info: [id number] - IBCOrder Info: [id number] - FERComments: cc copy to Dr. Nicola Hernandez Vascular SurgeonOrder Info: 3024-7 - T4Fcc copy to Dr. Nicola Hernandez Vascular Surgeon Result Comment: Afri can Macanese GFR Calc Performed By: #### L 100.0100, L503.6550, L500.4050, L503.6030 ####[facility] [address] [place], [address] GAP 5 Normal 5-15 [facility] Comment on above: Order Comment: Inter face Comments:cc copy to Dr. Nicola Hernandez Vascular SurgeonOrder Date: 08/14/24Order Info: [id number] - CMPOrder Info: 3 - TSHOrder Info: [id number] - IBCOrder Info: [id number] - FERComments: cc copy to Dr. Nicola Hernandez Vascular SurgeonOrder Info: 3024-7 - T4Fcc copy to Dr. Nicola Hernandez Vascular Surgeon Performed By: #### L 100.0100, L503.6550, L500.4050, L503.6030 ####[facility] [address] [place], [address] GFR/1.73 sq M.predicted among non-blacks MDRD (S/P/Bld) [Vol rate/Area] 52 mL/min/{1.73_m2} Low >60 [facility] Comment on above: Order Comment: Inter face Comments:cc copy to Dr. Nicola Hernandez Vascular SurgeonOrder Date: 08/14/24Order Info: [id number] - CMPOrder Info: [id number] - TSHOrder Info: [id number] - IBCOrder Info: [id number] - FERComments: cc copy to Dr. Nicola Hernandez Vascular SurgeonOrder Info: 3024-[address] Nicola Hernandez Vascular Surgeon Result Comment: Non- GFR Calc Performed By: #### L 100.0100, L503.6550, L500.4050, L503.6030 ####[facility] [address] [place], [address] Globulin (S) [Mass/Vol] 3.4 g/dL Normal 2.2-4.2 [facility] Comment on above: Order Comment: Inter face Comments:cc copy to Dr. Nicola Hernandez Vascular SurgeonOrder Date: 08/14/24Order Info: [id number] - CMPOrder Info: [id number] - TSHOrder Info: - IBCOrder Info: [id number] - FERComments: cc copy to Dr. Nicola Hernandez Vascular SurgeonOrder Info: 3024-[address] Nicola Hernandez, Vascular Surgeon Performed By: #### L 100.0100, L503.6550, L500.4050, L503.6030 ####[facility] [address] [place], [address] Glucose [Mass/Vol] 82 mg/dL Normal 74-106 [facility] Comment on above: Order Comment: Inter face Comments:cc copy to Dr. Nicola Hernandez Vascular SurgeonOrder Date: 08/14/24Order Info: [id number] - CMPOrder Info: [id number] - TSHOrder Info: [id number] - IBCOrder Info: [id number] - FERComments: cc copy to Dr. Nicola Hernandez Vascular SurgeonOrder Info: 3024-[address] Nicola Hernandez, Vascular Surgeon Performed By: #### L 100.0100, L503.6550, L500.4050, L503.6030 ####[facility] [address] [place], [address] Potassium [Moles/Vol] 4.0 mmol/L Normal 3.5-5.1 [facility] Comment on above: Order Comment: Inter face Comments:cc copy to Dr. Nicola Hernandez Vascular SurgeonOrder Date: 08/14/24Order Info: [id number] - CMPOrder Info: 6-3 - TSHOrder Info: [id number] - IBCOrder Info: [id number] - FERComments: cc copy to Dr. Nicola Hernandez Vascular SurgeonOrder Info: 3027 - T4Fcc copy to Dr. Nicola Hernandez, Vascular Surgeon Performed By: #### L 100.0100, L503.6550, L500.4050, L503.6030 ####[facility] [address] [place], [address] Sodium [Moles/Vol] 140 mmol/L Normal 136-145 [facility] Comment on above: Order Comment: Inter face Comments:cc copy to Dr. Nicola Hernandez Vascular SurgeonOrder Date: 08/14/24Order Info: [id number] - CMPOrder Info: 3 - TSHOrder Info: [id number] - IBCOrder Info: [id number] - FERComments: cc copy to Dr. Nicola Hernandez Vascular SurgeonOrder Info: 3024-7 - T4Fcc copy to Dr. Nicola Hernandez, Vascular Surgeon Performed By: #### L 100.0100, L503.6550, L500.4050, L503.6030 ####[facility] [address] [place], [address] T PROT 6.7 g/dL Normal 6.4-8.2 [facility] Comment on above: Order Comment: Inter face Comments:cc copy to Dr. Nicola Hernandez Vascular SurgeonOrder Date: 08/14/24Order Info: 07-1 - CMPOrder Info: [id number] - TSHOrder Info: [id number] - IBCOrder Info: [id number] - FERComments: cc copy to Dr. Nicola Hernandez Vascular SurgeonOrder Info: [id number] - T4Fcc copy to Dr. Nicola Hernandez, Vascular Surgeon Performed By: #### L 100.0100, L503.6550, L500.4050, L503.6030 ####[facility] [address] [place], [address] Urea nitrogen [Mass/Vol] 16 mg/dL Normal 7-18 [facility] Comment on above: Order Comment: Inter face Comments:cc copy to Dr. Nicola Hernandez, Vascular SurgeonOrder Date: 08/14/24Order Info: [id number] - CMPOrder Info: [id number] - TSHOrder Info: [id number] - IBCOrder Info: [id number] - FERComments: cc copy to Dr. Nicola Hernandez Vascular SurgeonOrder Info: 3024-7 - T4Fcc copy to Dr. Nicola Hernandez, Vascular Surgeon Performed By: #### L 100.0100, L503.6550, L500.4050, L503.6030 ####[facility] [address] [place] [place], [address] Ferritinon 08-14-2024 Ferritin [Mass/Vol] 35 ng/mL Normal 8-252 [facility] Comment on above: Order Comment: Inter face Comments:cc copy to Dr. Nicola Hernandez Vascular SurgeonOrder Date: 08/14/24Order Info: [id number] - CMPOrder Info: [id number] - TSHOrder Info: [id number] - IBCOrder Info: [id number] - FERComments: cc copy to Dr. Nicola Hernandez, Vascular SurgeonOrder Info: 3024-7 - T4Fcc copy to Dr. Nicola Hernandez, Vascular Surgeon Performed By: #### L 100.0100, L503.6550, L500.4050, L503.6030 ####[facility] [address] [place], [address] Iron+Iron Binding Capacityon 08-14-2024 Iron [Mass/Vol] 31 ug/dL Low 50-170 [facility] Comment on above: Order Comment: Inter face Comments:cc copy to Dr. Nicola Hernandez, Vascular SurgeonOrder Date: 08/14/24Order Info: [id number] - CMPOrder Info: 3 - TSHOrder Info: [id number] - IBCOrder Info: [id number] - FERComments: cc copy to Dr. Nicola Hernandez, Vascular SurgeonOrder Info: 3024-05 - T4Fcc copy to Dr. Nicola Hernandez, Vascular Surgeon Performed By: #### L 100.0100, L503.6550, L500.4050, L503.6030 ####[facility] [address] [place], [address] IRON SATURATION 9.1 Low 15.0-55.0 [facility] Comment on above: Order Comment: Inter face Comments:cc copy to Dr. Nicola Hernandez, Vascular SurgeonOrder Date: 08/14/24Order Info: [id number] - CMPOrder Info: [id number] - TSHOrder Info: [id number] - IBCOrder Info: [id number] - FERComments: cc copy to Dr. Nicola Hernandez, Vascular SurgeonOrder Info: 3024-05 - T4Fcc copy to Dr. Nicola Hernandez, Vascular Surgeon Performed By: #### L 100.0100, L503.6550, L500.4050, L503.6030 ####[facility] [address] [place], [address] TIBC 339 ug/dL Normal 250-450 [facility] Comment on above: Order Comment: Inter face Comments:cc copy to Dr. Nicola Hernandez Vascular SurgeonOrder Date: 08/14/24Order Info: 07 - CMPOrder Info: [id number] - TSHOrder Info: [id number] - IBCOrder Info: [id number] - FERComments: cc copy to Dr. Nicola Hernandez Vascular SurgeonOrder Info: 3024-05 - T4Fcc copy to Dr. Nicola Hernandez, Vascular Surgeon Performed By: #### L 100.0100, L503.6550, L500.4050, L503.6030 ####[facility] [address] [place], [address] T4 Free Directon 08-14-2024 T4 FREE DIRECT 1.18 ng/dL Normal 0.76-1.46 [facility] Comment on above: Order Comment: Inter face Comments:cc copy to Dr. Nicola Hernandez, Vascular SurgeonOrder Date: 08/14/24Order Info: [id number] - CMPOrder Info: [id number] - TSHOrder Info: [id number] - IBCOrder Info: [id number] - FERComments: cc copy to Dr. Nicola Hernandez, Vascular SurgeonOrder Info: [id number] - T4Fcc copy to Dr. Nicola Hernandez, Vascular Surgeon Performed By: #### L 506.0400, L501.9520 ####[facility] [address] [place], [place], [id number] Thyroid Stim Hormone (TSH)on 08-14-2024 TSH 1.650 uIU/mL Normal 0.358-3.74 0 [facility] Comment on above: Order Comment: Inter face Comments:cc copy to Dr. Nicola Hernandez, Vascular SurgeonOrder Date: 08/14/24Order Info: [id number] - CMPOrder Info: [id number] - TSHOrder Info: [id number] - IBCOrder Info: [id number] - FERComments: cc copy to Dr. Nicola Hernandez, Vascular SurgeonOrder Info: 7 - T4Fcc copy to Dr. Nicola Hernandez, Vascular Surgeon Performed By: #### L 506.0400, L501.9520 ####[facility] [address] [place], [place], [address] Absolute lymphocyte countOrd ered By: Daron Benton on 02-29-2024 Lymphocytes Auto (Unsp spec) [#/Vol] 1.00 10*3/uL 0.83-4.51 [facility] Automated lymphocyte count a s percentage of total leukocytesOrdered By: Daron Benton on 02-29-2024 Lymphocytes/100 WBC Auto (Unsp spec) 20.5 % 19-41 [facility] Basophil percentageOrdered B y: Daron Benton on 02-29-2024 Basophil percentage 10.4 g/dL 12.0-15.0 [facility] Basophil percentage 72 mg/dL 74-106 [facility] Basophil percentage 6.4 g/dL 6.4-8.2 [facility] Basophil percentage 0.30 mg/dL 0.20-1.00 [facility] Basophil percentage 139 mmol/L 136-145 [facility] Basophil percentage 3.9 mmol/L 3.5-5.1 [facility] Basophil percentage 105 mmol/L 98-107 [facility] Basophils (Bld) [#/Vol] 4.9 10*3/uL 4.4-11.0 [facility] Basophils (Bld) [#/Vol] 3.1 10*3/uL 2.0-7.7 [facility] Basophils/100 WBC (Bld) 63.6 % 47-70 [facility] Basophils/100 WBC (Bld) 8.8 % 0-10 [facility] Basophils/100 WBC (Bld) 5.1 % 0-5 [facility] Basophils/100 WBC (Bld) 1.4 % 0-1 [facility] Blood manual differential co mment interpretation (narrative result)Ordered By: Daron Benton on 02-29-2024 Manual differential comment Jimy (Bld) [Interp] SCANNED [facility] Determination of erythrocyte mean corpuscular volume (MCV)Ordered By: Daron Benton on 02-29-2024 MCV (RBC) [Entitic vol] 84.6 fL 81-99 [facility] Erythrocyte distribution wid th ratioOrdered By: Daron Benton on 02-29-2024 Erythrocyte distribution width (RBC) [Ratio] 20.3 % 11.6-14.6 [facility] Erythrocyte distribution wid th standard deviationOrdered By: Daron Benton on 02-29-2024 Erythrocyte distribution width (RBC) [Entitic vol] 62.6 fL 35.1-43.9 [facility] Hematocrit Auto (Bld) [Volum e fraction]Ordered By: Daron Benton on 02-29-2024 Hematocrit (Bld) [Volume fraction] 35.7 % 37-47 [facility] Hemoglobin in reticulocytes (mass per reticulocyte)Ordered By: Daron Benton on 02-29-2024 Hemoglobin (Reticulocytes) [Entitic mass] 30.1 pg 30-35 [facility] Immature granulocytes/100 WB C Auto (Bld)Ordered By: Daron Benton on 02-29-2024 Immature granulocytes/100 WBC (Bld) 0.600 % 0.0-0.9 [facility] No Panel InformationOrdered By: Daron Benton on 02-29-2024 24.6 pg 27.0-32.0 [facility] 29.1 g/dL 32-36 [facility] 211 K/mm3 150-450 [facility] 10.0 fl 6.2-12.0 [facility] 0 % 0-5 [facility] 12.20 % 3.00-15.90 [facility] 63 mL/min >60 [facility] 76 mL/min >60 [facility] 13.8 RATIO 10-20 [facility] 3.5 g/dL 2.2-4.2 [facility] 0.8 RATIO 0.9-2.4 [facility] 134 U/L 45-117 [facility] 13 U/L 13-56 [facility] 31.0 mmol/L 21.0-32.0 [facility] 386 pg/mL 211-911 [facility] 292 ng/mL 8-252 [facility] 8.20 ng/mL 3.1-55.4 [facility] RBC Auto (Bld) [#/Vol]Ordere d By: Daron Benton on 02-29-2024 RBC (Bld) [#/Vol] 4.22 10*6/uL 4.2-5.4 [facility] Reticulocytes Auto (Bld) [#/ Vol]Ordered By: Daron Benton on 02-29-2024 Reticulocytes/100 RBC (Bld) 1.50 % 0.5-1.5 [facility] Serum or plasma calcium stefania urement (mass/volume)Ordered By: Daron Benton on 02-29-2024 Calcium [Mass/Vol] 8.8 mg/dL 8.5-10.1 [facility] Serum or plasma creatinine m easurement (mass/volume)Ordered By: Daron Benton on 02-29-2024 Creatinine [Mass/Vol] 0.94 mg/dL 0.55-1.02 [facility] Serum or plasma urea nitroge n measurement (mass/volume)Ordered By: Daron Benton on 02-29-2024 Urea nitrogen [Mass/Vol] 13 mg/dL 7-18 [facility] Thin prep Papanicolaou smear with manual screeningOrdered By: Daron eBnton on 02-29-2024 Thin prep Papanicolaou smear with manual screening 2.9 g/dL 3.2-5.0 [facility] Thin prep Papanicolaou smear with manual screening 15 U/L 15-37 [facility] Thin prep Papanicolaou smear with manual screening 3 5-15 [facility] Absolute lymphocyte countOrd ered By: Roman Mckeon on 02-25-2024 Lymphocytes Auto (Unsp spec) [#/Vol] 1.08 10*3/uL 0.83-4.51 [facility] Activated partial thrombopla stin time (aPTT) in platelet poor plasma by coagulation aOrdered By: Daron Cortes on 02-25-2024 aPTT Coag (PPP) [Time] 33.2 s 24.1-36.2 [facility] Automated lymphocyte count a s percentage of total leukocytesOrdered By: Roman Mckeon on 02-25-2024 Lymphocytes/100 WBC Auto (Unsp spec) 16.3 % 19-41 [facility] Basophil percentageOrdered B y: Eva Mortensen on 02-25-2024 Basophil percentage 10.7 g/dL 12.0-15.0 [facility] Basophil percentageOrdered B y: Roman Mckeon on 02-25-2024 Basophil percentage 85 mg/dL 74-106 [facility] Basophil percentage 141 mmol/L 136-145 [facility] Basophil percentage 3.8 mmol/L 3.5-5.1 [facility] Basophil percentage 110 mmol/L 98-107 [facility] Basophils (Bld) [#/Vol] 6.6 10*3/uL 4.4-11.0 [facility] Basophils (Bld) [#/Vol] 4.6 10*3/uL 2.0-7.7 [facility] Basophils/100 WBC (Bld) 68.4 % 47-70 [facility] Basophils/100 WBC (Bld) 11.3 % 0-10 [facility] Basophils/100 WBC (Bld) 2.9 % 0-5 [facility] Basophils/100 WBC (Bld) 0.5 % 0-1 [facility] Determination of erythrocyte mean corpuscular volume (MCV)Ordered By: Roman Mckeon on 02-25-2024 MCV (RBC) [Entitic vol] 83.5 fL 81-99 [facility] Erythrocyte distribution wid th ratioOrdered By: Roman Mckeon on 02-25-2024 Erythrocyte distribution width (RBC) [Ratio] 19.6 % 11.6-14.6 [facility] Erythrocyte distribution wid th standard deviationOrdered By: Roman Mckeon on 02-25-2024 Erythrocyte distribution width (RBC) [Entitic vol] 57.3 fL 35.1-43.9 [facility] Hematocrit Auto (Bld) [Volum e fraction]Ordered By: Roman Mckeon on 02-25-2024 Hematocrit (Bld) [Volume fraction] 34.3 % 37-47 [facility] Immature granulocytes/100 WB C Auto (Bld)Ordered By: Roman Mckeon on 02-25-2024 Immature granulocytes/100 WBC (Bld) 0.600 % 0.0-0.9 [facility] No Panel InformationOrdered By: Roman Mckeon on 02-25-2024 25.1 pg 27.0-32.0 [facility] 30.0 g/dL 32-36 [facility] 205 K/mm3 150-450 [facility] 9.6 fl 6.2-12.0 [facility] 0 % 0-5 [facility] 70 mL/min >60 [facility] 85 mL/min >60 [facility] 55.02 ml/min [facility] 14.1 RATIO 10-20 [facility] 26.0 mmol/L 21.0-32.0 [facility] No Panel InformationOrdered By: Daron Cortes on 02-25-2024 13.8 SECONDS 11.7-14.9 [facility] 1.1 [facility] RBC Auto (Bld) [#/Vol]Ordere d By: Roman Mckeon on 02-25-2024 RBC (Bld) [#/Vol] 4.11 10*6/uL 4.2-5.4 [facility] Serum or plasma calcium stefania urement (mass/volume)Ordered By: Roman Mckeon on 02-25-2024 Calcium [Mass/Vol] 8.5 mg/dL 8.5-10.1 [facility] Serum or plasma creatinine m easurement (mass/volume)Ordered By: Roman Mckeon on 02-25-2024 Creatinine [Mass/Vol] 0.85 mg/dL 0.55-1.02 [facility] Serum or plasma thyroid stim ulating hormone (TSH) measurement (units/volume)Ordered By: Daron Cortes on 02-25-2024 TSH Qn 3.07 uIU/mL 0.358-3.74 [facility] Serum or plasma urea nitroge n measurement (mass/volume)Ordered By: Roman Mckeon on 02-25-2024 Urea nitrogen [Mass/Vol] 12 mg/dL 7-18 [facility] Thin prep Papanicolaou smear with manual screeningOrdered By: Roman Mckeon on 02-25-2024 Thin prep Papanicolaou smear with manual screening 5 5-15 [facility] Basophil percentageOrdered B y: Roman Mckeon on 02-23-2024 Basophil percentage 2.6 mg/dL 2.5-4.9 [facility] No Panel InformationOrdered By: Roman Mckeon on 02-23-2024 28 pg/mL 3.0-54.0 [facility] 2.0 mg/dL 1.6-2.6 [facility] Bacteria identified Respirat ory culture Nom (Unsp spec)Ordered By: Roman Mckeon on 02-22-2024 Microbial respiratory culture Presumptive C albicans [facility] Basophil percentageOrdered B y: Roman Mckeon on 02-22-2024 Basophil percentage 5.2 g/dL 6.4-8.2 [facility] Basophil percentage 0.20 mg/dL 0.20-1.00 [facility] Gram stain for investigation of transfusion reactionOrdered By: Roman Mckeon on 02-22-2024 Microscopic observation Gram stain Nom (Unsp spec) [facility] No Panel InformationOrdered By: Roman Mckeon on 02-22-2024 3.0 g/dL 2.2-4.2 [facility] 0.7 RATIO 0.9-2.4 [facility] 133 U/L 45-117 [facility] 8 U/L 13-56 [facility] Thin prep Papanicolaou smear with manual screeningOrdered By: Roman Mckeon on 02-22-2024 Thin prep Papanicolaou smear with manual screening 2.2 g/dL 3.2-5.0 [facility] Thin prep Papanicolaou smear with manual screening 9 U/L 15-37 [facility] Absolute lymphocyte countOrd ered By: Jeffy Willoughby on 02-19-2024 Lymphocytes Auto (Unsp spec) [#/Vol] 1.17 10*3/uL 0.83-4.51 [facility] Automated lymphocyte count a s percentage of total leukocytesOrdered By: Jeffy Willoughby on 02-19-2024 Lymphocytes/100 WBC Auto (Unsp spec) 14.5 % 19-41 [facility] Basophil percentageOrdered B y: Jeffy Willoughby on 02-19-2024 Basophil percentage 1.0 mmol/L 0.4-2.0 [facility] Basophil percentage 6.6 g/dL 12.0-15.0 [facility] Basophil percentage 128 mg/dL 74-106 [facility] Basophil percentage 137 mmol/L 136-145 [facility] Basophil percentage 3.8 mmol/L 3.5-5.1 [facility] Basophil percentage 106 mmol/L 98-107 [facility] Basophils (Bld) [#/Vol] 8.1 10*3/uL 4.4-11.0 [facility] Basophils (Bld) [#/Vol] 5.9 10*3/uL 2.0-7.7 [facility] Basophils/100 WBC (Bld) 73.5 % 47-70 [facility] Basophils/100 WBC (Bld) 8.5 % 0-10 [facility] Basophils/100 WBC (Bld) 2.6 % 0-5 [facility] Basophils/100 WBC (Bld) 0.4 % 0-1 [facility] Determination of erythrocyte mean corpuscular volume (MCV)Ordered By: Jeffy Willoughby on 02-19-2024 MCV (RBC) [Entitic vol] 77.2 fL 81-99 [facility] Erythrocyte distribution wid th ratioOrdered By: Jeffyaura Willoughby on 02-19-2024 Erythrocyte distribution width (RBC) [Ratio] 17.1 % 11.6-14.6 [facility] Erythrocyte distribution wid th standard deviationOrdered By: Jeffyaura Willoughby on 02-19-2024 Erythrocyte distribution width (RBC) [Entitic vol] 48.0 fL 35.1-43.9 [facility] Hematocrit Auto (Bld) [Volum e fraction]Ordered By: Jeffy Willoughby on 02-19-2024 Hematocrit (Bld) [Volume fraction] 22.4 % 37-47 [facility] Immature granulocytes/100 WB C Auto (Bld)Ordered By: Jeffyaura Willoughby on 02-19-2024 Immature granulocytes/100 WBC (Bld) 0.500 % 0.0-0.9 [facility] Lower GI hemoglobin IA Ql (S tl)Ordered By: Jeffyaura Willoughby on 02-19-2024 Stool gastrointestinal hemoglobin detection by immunologic method Positive [facility] No Panel InformationOrdered By: Jeffyaura Willoughby on 02-19-2024 15 pg/mL 3.0-54.0 [facility] No growth in 5 days. [facility] 22.8 pg 27.0-32.0 [facility] 29.5 g/dL 32-36 [facility] 193 K/mm3 150-450 [facility] 10.0 fl 6.2-12.0 [facility] 0 % 0-5 [facility] 58 mL/min >60 [facility] 71 mL/min >60 [facility] 49.70 ml/min [facility] 21.0 RATIO 10-20 [facility] 25.0 mmol/L 21.0-32.0 [facility] RBC Auto (Bld) [#/Vol]Ordere d By: Jeffy Willoughby on 02-19-2024 RBC (Bld) [#/Vol] 2.90 10*6/uL 4.2-5.4 [facility] Serum or plasma calcium stefania urement (mass/volume)Ordered By: Jeffy Willoughby on 02-19-2024 Calcium [Mass/Vol] 8.3 mg/dL 8.5-10.1 [facility] Serum or plasma creatinine m easurement (mass/volume)Ordered By: Jeffyaura Willoughby on 02-19-2024 Creatinine [Mass/Vol] 1.00 mg/dL 0.55-1.02 [facility] Serum or plasma urea nitroge n measurement (mass/volume)Ordered By: Jeffyaura Willoughby on 02-19-2024 Urea nitrogen [Mass/Vol] 21 mg/dL 7-18 [facility] Thin prep Papanicolaou smear with manual screeningOrdered By: Jeffyaura Willoughby on 02-19-2024 Thin prep Papanicolaou smear with manual screening 128 mg/dL 74-106 [facility] Thin prep Papanicolaou smear with manual screening 6 5-15 [facility] Urine Legionella pneumophila antigen detectionOrdered By: Roman Mckeon on 02-19-2024 L. pneumophila Ag Ql (U) [facility] Absolute lymphocyte countOrd ered By: Daron Benton on 01-18-2024 Lymphocytes Auto (Unsp spec) [#/Vol] 1.27 10*3/uL 0.83-4.51 [facility] Automated lymphocyte count a s percentage of total leukocytesOrdered By: Daron Benton on 01-18-2024 Lymphocytes/100 WBC Auto (Unsp spec) 11.7 % 19-41 [facility] Basophil percentageOrdered B y: Daron Benton on 01-18-2024 Basophil percentage 8.9 g/dL 12.0-15.0 [facility] Basophil percentage 96 mg/dL 74-106 [facility] Basophil percentage 6.8 g/dL 6.4-8.2 [facility] Basophil percentage 0.40 mg/dL 0.20-1.00 [facility] Basophil percentage 139 mmol/L 136-145 [facility] Basophil percentage 4.1 mmol/L 3.5-5.1 [facility] Basophil percentage 106 mmol/L 98-107 [facility] Basophils (Bld) [#/Vol] 10.9 10*3/uL 4.4-11.0 [facility] Basophils (Bld) [#/Vol] 8.1 10*3/uL 2.0-7.7 [facility] Basophils/100 WBC (Bld) 74.9 % 47-70 [facility] Basophils/100 WBC (Bld) 8.6 % 0-10 [facility] Basophils/100 WBC (Bld) 2.0 % 0-5 [facility] Basophils/100 WBC (Bld) 0.8 % 0-1 [facility] Determination of erythrocyte mean corpuscular volume (MCV)Ordered By: Daron Benton on 01-18-2024 MCV (RBC) [Entitic vol] 88.1 fL 81-99 [facility] Erythrocyte distribution wid th ratioOrdered By: Daron Benton on 01-18-2024 Erythrocyte distribution width (RBC) [Ratio] 16.0 % 11.6-14.6 [facility] Erythrocyte distribution wid th standard deviationOrdered By: Daron Benton on 01-18-2024 Erythrocyte distribution width (RBC) [Entitic vol] 51.1 fL 35.1-43.9 [facility] Hematocrit Auto (Bld) [Volum e fraction]Ordered By: Daron Benton on 01-18-2024 Hematocrit (Bld) [Volume fraction] 30.4 % 37-47 [facility] Hemoglobin in reticulocytes (mass per reticulocyte)Ordered By: Daron Benton on 01-18-2024 Hemoglobin (Reticulocytes) [Entitic mass] 25.6 pg 30-35 [facility] Immature granulocytes/100 WB C Auto (Bld)Ordered By: Daron Benton on 01-18-2024 Immature granulocytes/100 WBC (Bld) 2.000 % 0.0-0.9 [facility] No Panel InformationOrdered By: Daron Benton on 01-18-2024 25.8 pg 27.0-32.0 [facility] 29.3 g/dL 32-36 [facility] 449 K/mm3 150-450 [facility] 9.0 fl 6.2-12.0 [facility] 0 % 0-5 [facility] 34.00 % 3.00-15.90 [facility] 55 mL/min >60 [facility] 66 mL/min >60 [facility] 18.9 RATIO 10-20 [facility] 4.0 g/dL 2.2-4.2 [facility] 0.7 RATIO 0.9-2.4 [facility] 161 U/L 45-117 [facility] 13 U/L 13-56 [facility] 28.0 mmol/L 21.0-32.0 [facility] 2.2 pg/mL 2.18-3.98 [facility] 808 pg/mL 211-911 [facility] 82 ng/mL 8-252 [facility] 9.40 ng/mL 3.1-55.4 [facility] RBC Auto (Bld) [#/Vol]Ordere d By: Daron Benton on 01-18-2024 RBC (Bld) [#/Vol] 3.45 10*6/uL 4.2-5.4 [facility] Reticulocytes Auto (Bld) [#/ Vol]Ordered By: aDron Benton on 01-18-2024 Reticulocytes/100 RBC (Bld) 3.70 % 0.5-1.5 [facility] Serum or plasma calcium stefania urement (mass/volume)Ordered By: Daron Benton on 01-18-2024 Calcium [Mass/Vol] 8.7 mg/dL 8.5-10.1 [facility] Serum or plasma creatinine m easurement (mass/volume)Ordered By: Daron Benton on 01-18-2024 Creatinine [Mass/Vol] 1.06 mg/dL 0.55-1.02 [facility] Serum or plasma thyroid stim ulating hormone (TSH) measurement (units/volume)Ordered By: Daron Benton on 01-18-2024 TSH Qn 3.92 uIU/mL 0.358-3.74 [facility] Serum or plasma urea nitroge n measurement (mass/volume)Ordered By: Daron Benton on 01-18-2024 Urea nitrogen [Mass/Vol] 20 mg/dL 7-18 [facility] Thin prep Papanicolaou smear with manual screeningOrdered By: Daron Benton on 01-18-2024 Thin prep Papanicolaou smear with manual screening 2.8 g/dL 3.2-5.0 [facility] Thin prep Papanicolaou smear with manual screening 12 U/L 15-37 [facility] Thin prep Papanicolaou smear with manual screening 5 5-15 [facility] Thin prep Papanicolaou smear with manual screening 1.39 ng/dL 0.76-1.46 [facility] Absolute lymphocyte countOrd ered By: Jori Garcia on 01-11-2024 Lymphocytes Auto (Unsp spec) [#/Vol] 0.76 10*3/uL 0.83-4.51 [facility] Automated lymphocyte count a s percentage of total leukocytesOrdered By: Jori Garcia on 01-11-2024 Lymphocytes/100 WBC Auto (Unsp spec) 5.2 % 19-41 [facility] Basophil percentageOrdered B y: Jori Garcia on 01-11-2024 Basophil percentage 1.3 mmol/L 0.4-2.0 [facility] Basophil percentage 0 SEEN /hpf 0-5 [facility] Basophil percentage 10.2 g/dL 12.0-15.0 [facility] Basophil percentage 159 mg/dL 74-106 [facility] Basophil percentage 137 mmol/L 136-145 [facility] Basophil percentage 3.9 mmol/L 3.5-5.1 [facility] Basophil percentage 104 mmol/L 98-107 [facility] Basophils (Bld) [#/Vol] 14.6 10*3/uL 4.4-11.0 [facility] Basophils (Bld) [#/Vol] 12.4 10*3/uL 2.0-7.7 [facility] Basophils/100 WBC (Bld) 85.1 % 47-70 [facility] Basophils/100 WBC (Bld) 7.7 % 0-10 [facility] Basophils/100 WBC (Bld) 0.2 % 0-5 [facility] Basophils/100 WBC (Bld) 0.5 % 0-1 [facility] Bilirubin Test strip Ql (U)O rdered By: Jori Garcia on 01-11-2024 Bilirubin Ql (U) Negative Negative [facility] Determination of erythrocyte mean corpuscular volume (MCV)Ordered By: Jori Garcia on 01-11-2024 MCV (RBC) [Entitic vol] 86.4 fL 81-99 [facility] Erythrocyte distribution wid th ratioOrdered By: Jori Garcia on 01-11-2024 Erythrocyte distribution width (RBC) [Ratio] 15.2 % 11.6-14.6 [facility] Erythrocyte distribution wid th standard deviationOrdered By: Jori Garcia on 01-11-2024 Erythrocyte distribution width (RBC) [Entitic vol] 48.4 fL 35.1-43.9 [facility] Hematocrit Auto (Bld) [Volum e fraction]Ordered By: Jori Garcia on 01-11-2024 Hematocrit (Bld) [Volume fraction] 32.4 % 37-47 [facility] Immature granulocytes/100 WB C Auto (Bld)Ordered By: Jori Garcia on 01-11-2024 Immature granulocytes/100 WBC (Bld) 1.300 % 0.0-0.9 [facility] Ketones Test strip Ql (U)Ord ered By: Jori aGrcia on 01-11-2024 Ketones Ql (U) Negative Negative [facility] Mucus LM Ql (Urine sed)Order ed By: Jori Garcia on 01-11-2024 Mucus Ql (Urine sed) 0 SEEN /hpf [facility] Nitrite Test strip Ql (U)Ord ered By: Jori Garcia on 01-11-2024 Nitrite Ql (U) Negative Negative [facility] No Panel InformationOrdered By: Jori Garcia on 01-11-2024 17 pg/mL 3.0-54.0 [facility] 0 SEEN /hpf 0-5 [facility] 27.2 pg 27.0-32.0 [facility] 31.5 g/dL 32-36 [facility] 308 K/mm3 150-450 [facility] 9.2 fl 6.2-12.0 [facility] 0 % 0-5 [facility] 54 mL/min >60 [facility] 65 mL/min >60 [facility] 43.08 ml/min [facility] 16.8 RATIO 10-20 [facility] 2.1 mg/dL 1.6-2.6 [facility] 26.0 mmol/L 21.0-32.0 [facility] Protein Test strip Ql (U)Ord ered By: Jori Garcia on 01-11-2024 Protein Ql (U) Negative Negative [facility] RBC Auto (Bld) [#/Vol]Ordere d By: Jori Garcia on 01-11-2024 RBC (Bld) [#/Vol] 3.75 10*6/uL 4.2-5.4 [place] [facility] Serum or plasma calcium stefania urement (mass/volume)Ordered By: Jori Garcia on 01-11-2024 Calcium [Mass/Vol] 9.1 mg/dL 8.5-10.1 [facility] Serum or plasma creatinine m easurement (mass/volume)Ordered By: Jori Garcia on 01-11-2024 Creatinine [Mass/Vol] 1.07 mg/dL 0.55-1.02 [facility] Serum or plasma urea nitroge n measurement (mass/volume)Ordered By: Jori Garcia on 01-11-2024 Urea nitrogen [Mass/Vol] 18 mg/dL 7-18 [facility] Squamous epithelial cells de tection in urine sediment by light microscopyOrdered By: Jori Garcia on 01-11-2024 Epithelial cells.squamous LM Ql (Urine sed) 0 SEEN /hpf 5-10 [facility] Thin prep Papanicolaou smear with manual screeningOrdered By: Jori Garcia on 01-11-2024 Thin prep Papanicolaou smear with manual screening 7 5-15 [facility] Urine blood detectionOrdered By: Jori Garcia on 01-11-2024 RBC Ql (U) Negative Negative [facility] Urine clarityOrdered By: Kasandra Garcia on 01-11-2024 Clarity (U) Clear Clear [facility] Urine color determinationOrd ered By: Jori Garcia on 01-11-2024 Color (U) Yellow Yellow [facility] Urine glucose detectionOrder ed By: Jori Garcia on 01-11-2024 Glucose Ql (U) Normal mg/dl Normal [facility] Urine leukocyte esterase det ection by dipstickOrdered By: Jori Garcia on 01-11-2024 Leukocyte esterase Test strip Ql (U) 25 /ul Negative [facility] Urine pHOrdered By: Jori Garcia on 01-11-2024 pH (U) 7.0 [pH] 5.0 - 8.0 [facility] Urine sediment bacteria coun t by microscopy (number/high power field)Ordered By: Jori Garcia on 01-11-2024 Bacteria LM.HPF (Urine sed) [#/Area] 0 /[HPF] None Seen [facility] Urine specific gravity measu rementOrdered By: Jori Garcia on 01-11-2024 Specific gravity (U) [Rel density] 1.010 1.002-1.03 0 [facility] Urine urobilinogen measureme ntOrdered By: Jori Garcia on 01-11-2024 Urobilinogen Ql (U) Normal mg/dl Normal [facility] Basophil percentageOrdered B y: Betsey Lindquist on 12-21-2023 Basophil percentage 9.9 g/dL 12.0-15.0 [facility] Hematocrit Auto (Bld) [Volum e fraction]Ordered By: Betsey Lindquist on 12-21-2023 Hematocrit (Bld) [Volume fraction] 32.2 % 37-47 [facility] Absolute lymphocyte countOrd ered By: Sachin Murillo on 12-07-2023 Lymphocytes Auto (Unsp spec) [#/Vol] 1.31 10*3/uL 0.83-4.51 [facility] Automated lymphocyte count a s percentage of total leukocytesOrdered By: Sachin Murillo on 12-07-2023 Lymphocytes/100 WBC Auto (Unsp spec) 17.9 % 19-41 [facility] Basophil percentageOrdered B y: Sachin Murillo on 12-07-2023 Basophil percentage 9.0 g/dL 12.0-15.0 [facility] Basophil percentage 94 mg/dL 74-106 [facility] Basophil percentage 142 mmol/L 136-145 [facility] Basophil percentage 3.6 mmol/L 3.5-5.1 [facility] Basophil percentage 111 mmol/L 98-107 [facility] Basophils (Bld) [#/Vol] 7.3 10*3/uL 4.4-11.0 [facility] Basophils (Bld) [#/Vol] 5.2 10*3/uL 2.0-7.7 [facility] Basophils/100 WBC (Bld) 71.0 % 47-70 [facility] Basophils/100 WBC (Bld) 9.8 % 0-10 [facility] Basophils/100 WBC (Bld) 0.1 % 0-1 [facility] Determination of erythrocyte mean corpuscular volume (MCV)Ordered By: Sachin Murillo on 12-07-2023 MCV (RBC) [Entitic vol] 90.7 fL 81-99 [facility] Erythrocyte distribution wid th ratioOrdered By: Sachin Murillo on 12-07-2023 Erythrocyte distribution width (RBC) [Ratio] 15.6 % 11.6-14.6 [facility] Erythrocyte distribution wid th standard deviationOrdered By: Sachin Murillo on 12-07-2023 Erythrocyte distribution width (RBC) [Entitic vol] 51.9 fL 35.1-43.9 [facility] Hematocrit Auto (Bld) [Volum e fraction]Ordered By: Sachin Murillo on 12-07-2023 Hematocrit (Bld) [Volume fraction] 27.4 % 37-47 [facility] Immature granulocytes/100 WB C Auto (Bld)Ordered By: Sachin Murillo on 12-07-2023 Immature granulocytes/100 WBC (Bld) 1.100 % 0.0-0.9 [facility] No Panel InformationOrdered By: Sachin Murillo on 12-07-2023 29.8 pg 27.0-32.0 [facility] 32.8 g/dL 32-36 [facility] 216 K/mm3 150-450 [facility] 0 % 0-5 [facility] 58 mL/min >60 [facility] 70 mL/min >60 [facility] 46.47 ml/min [facility] 29.7 RATIO 10-20 [facility] 26.0 mmol/L 21.0-32.0 [facility] Platelet mean volume Jordan-Ec ker (Bld) [Entitic vol]Ordered By: Sachin Murillo on 12-07-2023 Platelet mean volume (Bld) [Entitic vol] 9.5 fL 6.2-12.0 [facility] RBC Auto (Bld) [#/Vol]Ordere d By: Sachin Murillo on 12-07-2023 RBC (Bld) [#/Vol] 3.02 10*6/uL 4.2-5.4 [facility] Serum or plasma calcium stefania urement (mass/volume)Ordered By: Sachin Murillo on 12-07-2023 Calcium [Mass/Vol] 7.7 mg/dL 8.5-10.1 [facility] Serum or plasma creatinine m easurement (mass/volume)Ordered By: Sachin Murillo on 12-07-2023 Creatinine [Mass/Vol] 1.01 mg/dL 0.55-1.02 [facility] Serum or plasma urea nitroge n measurement (mass/volume)Ordered By: Sachin Murillo on 12-07-2023 Urea nitrogen [Mass/Vol] 30 mg/dL 7-18 [facility] Thin prep Papanicolaou smear with manual screeningOrdered By: Sachin Murillo on 12-07-2023 Thin prep Papanicolaou smear with manual screening 5 5-15 [facility] Iron measurement (mass/mass) Ordered By: Sachin Murillo on 12-06-2023 Iron (Unsp spec) [Mass/Mass] 67 ug/dL 50-170 [facility] No Panel InformationOrdered By: Sachin Murillo on 12-06-2023 203 ug/dL 250-450 [facility] 96 ng/mL 8-252 [facility] Serum or plasma iron saturat ion measurement (mass fraction)Ordered By: Sachin Murillo on 12-06-2023 Iron saturation [Mass fraction] 33.0 % 15.0-55.0 [facility] Basophil percentageOrdered B y: Jorge Hurtado on 12-04-2023 Basophil percentage 13.0 umol/L 11-32 [facility] Basophil percentage 6.4 g/dL 6.4-8.2 [facility] Basophil percentage 0.20 mg/dL 0.20-1.00 [facility] Blood manual differential co mment interpretation (narrative result)Ordered By: Sachin Murillo on 12-04-2023 Manual differential comment Jimy (Bld) [Interp] SCANNED [facility] Direct bilirubinOrdered By: Jorge Hurtado on 12-04-2023 Bilirubin.direct [Mass/Vol] 0.11 mg/dL 0.00-0.30 [facility] No Panel InformationOrdered By: Jorge Hurtado on 12-04-2023 3.7 g/dL 2.2-4.2 [facility] 127 U/L 45-117 [facility] 15 U/L 13-56 [facility] 1.65 uIU/mL 0.358-3.74 [facility] Serum or plasma albumin stefania urement (mass/volume)Ordered By: Jorge Hurtado on 12-04-2023 Albumin [Mass/Vol] 2.7 g/dL 3.2-5.0 [facility] Thin prep Papanicolaou smear with manual screeningOrdered By: Jorge Hurtado on 12-04-2023 Thin prep Papanicolaou smear with manual screening 17 U/L 15-37 [facility] Assessment of wrist artery p atency prior to arterial punctureOrdered By: Sachin Murillo on 12-03-2023 Arterial patency Wrist artery --pre arterial puncture Positive [facility] Base excessOrdered By: Jarred Murillo on 12-03-2023 Base excess Calc (BldV) [Moles/Vol] -3 mmol/L -2-2 [facility] Basophil percentageOrdered B y: Sachin Murillo on 12-03-2023 Basophil percentage 21.5 mmol/L 22-26 [facility] Basophils/100 WBC (Bld) 97 % 95-99 [facility] Basophil percentageOrdered B y: Roman Mckeon on 12-03-2023 Basophil percentage 3.0 mg/dL 2.5-4.9 [facility] CO2 (BldA) [Partial pressure ]Ordered By: Sachin Murillo on 12-03-2023 CO2 (Bld) [Partial pressure] 34.8 mm[Hg] 35-45 [facility] Glucose Glucometer (BldC) [M ass/Vol]Ordered By: Sachin Murillo on 12-03-2023 Glucose [Mass/Vol] 175 mg/dL 74-106 [facility] Measurement, pHOrdered By: Carlos Murillo on 12-03-2023 pH (Unsp spec) 7.40 [pH] 7.35-7.45 [facility] No Panel InformationOrdered By: Sachin Murillo on 12-03-2023 ART [facility] L Radial [facility] Not entered [facility] Cannula [facility] 1.0 [facility] 23 mmol/L [facility] No Panel InformationOrdered By: Roman Mckeon on 12-03-2023 2.6 mg/dL 1.6-2.6 [facility] Oxygen (BldA) [Partial press ure]Ordered By: Sachin Murillo on 12-03-2023 Oxygen (Bld) [Partial pressure] 93 mmHG 75-100 [facility] Absolute lymphocyte countOrd ered By: Gabriella Simpson on 12-02-2023 Lymphocytes Auto (Unsp spec) [#/Vol] 1.89 10*3/uL 0.83-4.51 [facility] Basophil percentageOrdered B y: Gabriella Simpson on 12-02-2023 Basophil percentage 0 SEEN /hpf 0-5 [facility] Basophil percentage 109 mg/dL 74-106 [facility] Basophil percentage 140 mmol/L 136-145 [facility] Basophil percentage 3.7 mmol/L 3.5-5.1 [facility] Basophil percentage 107 mmol/L 98-107 [facility] Basophils (Bld) [#/Vol] 6.6 10*3/uL 4.4-11.0 [facility] Basophils (Bld) [#/Vol] 3.8 10*3/uL 2.0-7.7 [facility] Basophils/100 WBC (Bld) 56.3 % 47-70 [facility] Basophils/100 WBC (Bld) 0.9 % 0-5 [facility] Basophils/100 WBC (Bld) 0.8 % 0-1 [facility] Bilirubin Test strip Ql (U)O rdered By: Gabriella Simpson on 12-02-2023 Bilirubin Ql (U) Negative Negative [facility] Blood erythrocytes count (nu mber/volume)Ordered By: Gabriella Simpson on 12-02-2023 RBC (Bld) [#/Vol] 4.21 10*6/uL 4.2-5.4 [facility] Blood hemoglobin measurement (mass/volume)Ordered By: Gabriella Simpson on 12-02-2023 Hemoglobin (Bld) [Mass/Vol] 12.5 g/dL 12.0-15.0 [facility] Blood lymphocytes/100 leukoc ytesOrdered By: Gabriella Simpson on 12-02-2023 Lymphocytes/100 WBC (Bld) 28.5 % 19-41 [facility] Blood monocytes/100 leukocyt esOrdered By: Gabriella Simpson on 12-02-2023 Monocytes/100 WBC (Bld) 12.7 % 0-10 [facility] Blood platelet mean volumeOr dered By: Gabriella Simpson on 12-02-2023 Platelet mean volume (Bld) [Entitic vol] 9.1 fL 6.2-12.0 [facility] Culture, urineOrdered By: Edgar Mckeon on 12-02-2023 Bacteria identified Cx Nom (U) Culture exhibits no growth. [facility] Bacteria identified Cx Nom (U) Culture exhibits no growth. [facility] Determination of erythrocyte mean corpuscular volume (MCV)Ordered By: Gabriella Simpson on 12-02-2023 MCV (RBC) [Entitic vol] 89.1 fL 81-99 [facility] Hematocrit Auto (Bld) [Volum e fraction]Ordered By: Gabriella Simpson on 12-02-2023 Hematocrit (Bld) [Volume fraction] 37.5 % 37-47 [facility] Ketones Test strip Ql (U)Ord ered By: Gabriella Simpson on 12-02-2023 Ketones Ql (U) Negative Negative [facility] MCHC Auto (RBC) [Mass/Vol]Or dered By: Gabriella Simpson on 12-02-2023 MCHC (RBC) [Mass/Vol] 33.3 g/dL 32-36 [facility] Mucus LM Ql (Urine sed)Order ed By: Gabriella Simpson on 12-02-2023 Mucus Ql (Urine sed) 0 SEEN /hpf [facility] Nitrite Test strip Ql (U)Ord ered By: Gabriella Simpson on 12-02-2023 Nitrite Ql (U) Negative Negative [facility] No Panel InformationOrdered By: Roman Mckeon on 12-02-2023 No growth in 5 days. [facility] [facility] No Panel InformationOrdered By: Gabriella Simpson on 12-02-2023 29.7 pg 27.0-32.0 [facility] 15.5 % 11.6-14.6 [facility] 50.4 fl 35.1-43.9 [facility] 0.800 % 0.0-0.9 [facility] 0 % 0-5 [facility] 51 mL/min >60 [facility] 61 mL/min >60 [facility] 41.54 ml/min [facility] 14.2 RATIO 10-20 [facility] 26 U/L 26-192 [facility] 25.0 mmol/L 21.0-32.0 [facility] Platelets bldOrdered By: Ene Simpson on 12-02-2023 Platelets (Bld) [#/Vol] 281 10*3/uL 150-450 [facility] Protein Test strip Ql (U)Ord ered By: Gabriella Simpson on 12-02-2023 Protein Ql (U) 15 mg/dl Negative [facility] Serum or plasma calcium stefania urement (mass/volume)Ordered By: Gabriella Simpson on 12-02-2023 Calcium [Mass/Vol] 8.8 mg/dL 8.5-10.1 [facility] Serum or plasma creatinine m easurement (mass/volume)Ordered By: Gabriella Simpson on 12-02-2023 Creatinine [Mass/Vol] 1.13 mg/dL 0.55-1.02 [facility] Serum or plasma urea nitroge n measurement (mass/volume)Ordered By: Gabriella Simpson on 12-02-2023 Urea nitrogen [Mass/Vol] 16 mg/dL 7-18 [facility] Squamous epithelial cells de tection in urine sediment by light microscopyOrdered By: Gabriella Simpson on 12-02-2023 Epithelial cells.squamous LM Ql (Urine sed) 0 SEEN /hpf 5-10 [facility] Thin prep Papanicolaou smear with manual screeningOrdered By: Gabriella Simpson on 12-02-2023 Thin prep Papanicolaou smear with manual screening 8 5-15 [facility] Urine blood detectionOrdered By: Gabriella Simpson on 12-02-2023 RBC Ql (U) Negative Negative [facility] RBC Ql (U) 0 SEEN /hpf 0-5 [facility] Urine clarityOrdered By: Ene Simpson on 12-02-2023 Clarity (U) Clear Clear [facility] Urine color determinationOrd ered By: Gabriella Simpson on 12-02-2023 Color (U) Yellow Yellow [facility] Urine glucose detectionOrder ed By: Gabriella Simpson on 12-02-2023 Glucose Ql (U) Normal mg/dl Normal [facility] Urine leukocyte esterase det ection by dipstickOrdered By: Gabriella Simpson on 12-02-2023 Leukocyte esterase Test strip Ql (U) 25 /ul Negative [facility] Urine pHOrdered By: Gabriella peoples on 12-02-2023 pH (U) 6.5 [pH] 5.0 - 8.0 [facility] Urine sediment bacteria coun t by microscopy (number/high power field)Ordered By: Gabriella Simpson on 12-02-2023 Bacteria LM.HPF (Urine sed) [#/Area] 0 /[HPF] None Seen [facility] Urine specific gravity measu rementOrdered By: Gabriella Simpson on 12-02-2023 Specific gravity (U) [Rel density] 1.015 1.002-1.03 0 [facility] Urobilinogen Auto test strip Ql (U)Ordered By: Gabriella Simpson on 12-02-2023 Urobilinogen Ql (U) Normal mg/dl Normal [facility] Absolute lymphocyte countOrd ered By: Ramírez Onofre on 11-27-2023 Lymphocytes Auto (Unsp spec) [#/Vol] 1.75 10*3/uL 0.83-4.51 [facility] Basophil percentageOrdered B y: Ramírez Onofre on 11-27-2023 Basophil percentage 106 mg/dL 74-106 [facility] Basophil percentage 140 mmol/L 136-145 [facility] Basophil percentage 3.7 mmol/L 3.5-5.1 [facility] Basophil percentage 108 mmol/L 98-107 [facility] Basophils (Bld) [#/Vol] 10.4 10*3/uL 4.4-11.0 [facility] Basophils (Bld) [#/Vol] 7.5 10*3/uL 2.0-7.7 [facility] Basophils/100 WBC (Bld) 0.4 % 0-1 [facility] Basophils/100 WBC (Bld) 71.7 % 47-70 [facility] Chloride [Moles/Vol] 108 mmol/L 98-107 [facility] Eosinophils/100 WBC (Bld) 0.4 % 0-5 [facility] Glucose [Mass/Vol] 106 mg/dL 74-106 [facility] Comment on above: Fasting Glucose resu lt from 100 to 125 mg/dL suggests IMPAIRED HOMEOSTASIS per A.D.A. criteria. Neutrophils (Bld) [#/Vol] 7.5 10*3/uL 2.0-7.7 [facility] Neutrophils/100 WBC (Bld) 71.7 % 47-70 [facility] Potassium [Moles/Vol] 3.7 mmol/L 3.5-5.1 [facility] Sodium [Moles/Vol] 140 mmol/L 136-145 [facility] WBC (Bld) [#/Vol] 10.4 10*3/uL 4.4-11.0 [facility] Blood erythrocytes count (nu mber/volume)Ordered By: Ramírez Onofre on 11-27-2023 RBC (Bld) [#/Vol] 3.89 10*6/uL 4.2-5.4 [facility] Blood hemoglobin measurement (mass/volume)Ordered By: Ramírez Onofre on 11-27-2023 Hemoglobin (Bld) [Mass/Vol] 11.6 g/dL 12.0-15.0 [facility] Blood lymphocytes/100 leukoc ytesOrdered By: Ramírez Onofre on 11-27-2023 Lymphocytes/100 WBC (Bld) 16.8 % 19-41 [facility] Blood monocytes/100 leukocyt esOrdered By: Ramírez Onofre on 11-27-2023 Monocytes/100 WBC (Bld) 9.9 % 0-10 [facility] Blood platelet mean volumeOr dered By: Ramírez Onofre on 11-27-2023 Platelet mean volume (Bld) [Entitic vol] 9.0 fL 6.2-12.0 [facility] Determination of erythrocyte mean corpuscular volume (MCV)Ordered By: Ramírez Onofre on 11-27-2023 MCV (RBC) [Entitic vol] 87.9 fL 81-99 [facility] Hematocrit Auto (Bld) [Volum e fraction]Ordered By: Ramírez Onofre on 11-27-2023 Hematocrit (Bld) [Volume fraction] 34.2 % 37-47 [facility] INR in Blood by Coagulation assayOrdered By: Ramírez Onofre on 11-27-2023 INR Coag (Bld) [Relative time] 1.0 {INR} [facility] Laboratory - Chemistry and C hemistry - challengeOrdered By: Ramírez Onofre on 11-27-2023 CO2 [Moles/Vol] 30.0 mmol/L 21.0-32.0 [facility] Urea nitrogen/Creatinine [Mass ratio] 12.8 mg/mg 10-20 [facility] Laboratory - CoagulationOrde red By: Ramírez Onofre on 11-27-2023 aPTT Coag (Bld) [Time] 27.8 s 24.1-36.2 [facility] PT Coag (PPP) [Time] 13.0 s 11.7-14.9 [facility] Laboratory - Hematology and Cell countsOrdered By: Ramírez Onofre on 11-27-2023 Erythrocyte distribution width (RBC) [Entitic vol] 48.7 fL 35.1-43.9 [facility] Erythrocyte distribution width (RBC) [Ratio] 15.3 % 11.6-14.6 [facility] Immature granulocytes/100 WBC (Bld) 0.800 % 0.0-0.9 [facility] Comment on above: IG% - Immature Granu locytes (promyelocytes, myelocytes and metamyelocytes) > 1% indicates that a LEFT SHIFT is Present. MCH (RBC) [Entitic mass] 29.8 pg 27.0-32.0 [facility] Nucleated RBC/100 WBC (Bld) [Ratio] 0 % 0-5 [facility] MCHC Auto (RBC) [Mass/Vol]Or dered By: Ramírez Onofre on 11-27-2023 MCHC (RBC) [Mass/Vol] 33.9 g/dL 32-36 [facility] Comment on above: Delta: 31.9 on [id number] No Panel InformationOrdered By: Ramírez Onofre on 11-27-2023 Estimated Creatinine Clearance Calc 41.86 ml/min [facility] Estimated GFR (MDRD) Amer 64 mL/min >60 [facility] Comment on above: GFR Calc Estimated GFR (MDRD) Non-Af Amer 53 mL/min >60 [facility] Comment on above: Non- GFR Calc Troponin I High Sensitivity 10 pg/mL 3.0-54.0 [facility] Comment on above: Please Note: New Kim t Units and Gender Specific Reference Ranges. For more information see Policy Stat Procedure [place] High Sensitivity Troponin (TNIH) and attachments. 29.8 pg 27.0-32.0 [facility] 15.3 % 11.6-14.6 [facility] 48.7 fl 35.1-43.9 [facility] 0.800 % 0.0-0.9 [facility] 0 % 0-5 [facility] 13.0 SECONDS 11.7-14.9 [facility] 27.8 Seconds 24.1-36.2 [facility] 53 mL/min >60 [facility] 64 mL/min >60 [facility] 41.86 ml/min [facility] 12.8 RATIO 10-20 [facility] 10 pg/mL 3.0-54.0 [facility] 30.0 mmol/L 21.0-32.0 [facility] Platelets bldOrdered By: Romeo Onofre on 11-27-2023 Platelets (Bld) [#/Vol] 232 10*3/uL 150-450 [facility] Serum or plasma calcium stefania urement (mass/volume)Ordered By: Ramírez Onofre on 11-27-2023 Calcium [Mass/Vol] 8.7 mg/dL 8.5-10.1 [facility] Serum or plasma creatinine m easurement (mass/volume)Ordered By: Ramírez Onofre on 11-27-2023 Creatinine [Mass/Vol] 1.09 mg/dL 0.55-1.02 [facility] Comment on above: The validity of the calculated GFR & GFRAA in patients over 70 years has not been determined. Clinical correlation is essential. Serum or plasma urea nitroge n measurement (mass/volume)Ordered By: Ramírez Onofre on 11-27-2023 Urea nitrogen [Mass/Vol] 14 mg/dL 7-18 [facility] Thin prep Papanicolaou smear with manual screeningOrdered By: Ramírez Onofre on 11-27-2023 Thin prep Papanicolaou smear with manual screening 2 5-15 [facility] Absolute lymphocyte countOrd ered By: Justice Cid on 11-26-2023 Lymphocytes Auto (Unsp spec) [#/Vol] 1.87 10*3/uL 0.83-4.51 [facility] Basophil percentageOrdered B y: Justice Cid on 11-26-2023 Basophil percentage 120 mg/dL 74-106 [facility] Basophil percentage 142 mmol/L 136-145 [facility] Basophil percentage 4.2 mmol/L 3.5-5.1 [facility] Basophil percentage 108 mmol/L 98-107 [facility] Basophils (Bld) [#/Vol] 9.7 10*3/uL 4.4-11.0 [facility] Basophils (Bld) [#/Vol] 6.8 10*3/uL 2.0-7.7 [facility] Basophils/100 WBC (Bld) 0.5 % 0-1 [facility] Basophils/100 WBC (Bld) 69.4 % 47-70 [facility] Basophils/100 WBC (Bld) 0.4 % 0-5 [facility] Chloride [Moles/Vol] 108 mmol/L 98-107 [facility] Eosinophils/100 WBC (Bld) 0.4 % 0-5 [facility] Glucose [Mass/Vol] 120 mg/dL 74-106 [facility] Comment on above: Fasting Glucose resu lt from 100 to 125 mg/dL suggests IMPAIRED HOMEOSTASIS per A.D.A. criteria. Neutrophils (Bld) [#/Vol] 6.8 10*3/uL 2.0-7.7 [facility] Neutrophils/100 WBC (Bld) 69.4 % 47-70 [facility] Potassium [Moles/Vol] 4.2 mmol/L 3.5-5.1 [facility] Sodium [Moles/Vol] 142 mmol/L 136-145 [facility] WBC (Bld) [#/Vol] 9.7 10*3/uL 4.4-11.0 [facility] Blood erythrocytes count (nu mber/volume)Ordered By: Justice Cid on 11-26-2023 RBC (Bld) [#/Vol] 3.84 10*6/uL 4.2-5.4 [facility] Blood hemoglobin measurement (mass/volume)Ordered By: Justice Cid on 11-26-2023 Hemoglobin (Bld) [Mass/Vol] 10.9 g/dL 12.0-15.0 [facility] Blood lymphocytes/100 leukoc ytesOrdered By: Justice Cid on 11-26-2023 Lymphocytes/100 WBC (Bld) 19.2 % 19-41 [facility] Blood monocytes/100 leukocyt esOrdered By: Justice Cid on 11-26-2023 Monocytes/100 WBC (Bld) 9.7 % 0-10 [facility] Blood platelet mean volumeOr dered By: Justice Cid on 11-26-2023 Platelet mean volume (Bld) [Entitic vol] 8.9 fL 6.2-12.0 [facility] Determination of erythrocyte mean corpuscular volume (MCV)Ordered By: Justice Cid on 11-26-2023 MCV (RBC) [Entitic vol] 89.1 fL 81-99 [facility] Hematocrit Auto (Bld) [Volum e fraction]Ordered By: Justice Cid on 11-26-2023 Hematocrit (Bld) [Volume fraction] 34.2 % 37-47 [facility] Laboratory - Chemistry and C hemistry - challengeOrdered By: Justice Cid on 11-26-2023 CO2 [Moles/Vol] 31.0 mmol/L 21.0-32.0 [facility] Urea nitrogen/Creatinine [Mass ratio] 13.8 mg/mg 10-20 [facility] Laboratory - Hematology and Cell countsOrdered By: Justice Cid on 11-26-2023 Erythrocyte distribution width (RBC) [Entitic vol] 49.2 fL 35.1-43.9 [facility] Erythrocyte distribution width (RBC) [Ratio] 15.4 % 11.6-14.6 [facility] Immature granulocytes/100 WBC (Bld) 0.800 % 0.0-0.9 [facility] Comment on above: IG% - Immature Granu locytes (promyelocytes, myelocytes and metamyelocytes) > 1% indicates that a LEFT SHIFT is Present. MCH (RBC) [Entitic mass] 28.4 pg 27.0-32.0 [facility] Nucleated RBC/100 WBC (Bld) [Ratio] 0 % 0-5 [facility] MCHC Auto (RBC) [Mass/Vol]Or dered By: Justice Cid on 11-26-2023 MCHC (RBC) [Mass/Vol] 31.9 g/dL 32-36 [facility] No Panel InformationOrdered By: Justice Cid on 11-26-2023 Estimated Creatinine Clearance Calc 39.99 ml/min [facility] Estimated GFR (MDRD) Amer 60 mL/min >60 [facility] Comment on above: GFR Calc Estimated GFR (MDRD) Non-Af Amer 49 mL/min >60 [facility] Comment on above: Non- GFR Calc Troponin I High Sensitivity 10 pg/mL 3.0-54.0 [facility] Comment on above: Please Note: New Kim t Units and Gender Specific Reference Ranges. For more information see Policy Stat Procedure [place] High Sensitivity Troponin (TNIH) and attachments. 28.4 pg 27.0-32.0 [facility] 15.4 % 11.6-14.6 [facility] 49.2 fl 35.1-43.9 [facility] 0.800 % 0.0-0.9 [facility] 0 % 0-5 [facility] 49 mL/min >60 [facility] 60 mL/min >60 [facility] 39.99 ml/min [facility] 13.8 RATIO 10-20 [facility] 10 pg/mL 3.0-54.0 [facility] 31.0 mmol/L 21.0-32.0 [facility] Platelets bldOrdered By: Yeny Cid on 11-26-2023 Platelets (Bld) [#/Vol] 265 10*3/uL 150-450 [facility] Serum or plasma calcium stefania urement (mass/volume)Ordered By: Justice Cid on 11-26-2023 Calcium [Mass/Vol] 8.2 mg/dL 8.5-10.1 [facility] Serum or plasma creatinine m easurement (mass/volume)Ordered By: Justice Cid on 11-26-2023 Creatinine [Mass/Vol] 1.16 mg/dL 0.55-1.02 [facility] Comment on above: The validity of the calculated GFR & GFRAA in patients over 70 years has not been determined. Clinical correlation is essential. Serum or plasma urea nitroge n measurement (mass/volume)Ordered By: Justice Cid on 11-26-2023 Urea nitrogen [Mass/Vol] 16 mg/dL 7-18 [facility] Thin prep Papanicolaou smear with manual screeningOrdered By: Justice Cid on 11-26-2023 Thin prep Papanicolaou smear with manual screening 3 5-15 [facility] Absolute lymphocyte countOrd ered By: Sachin Murillo on 11-21-2023 Lymphocytes Auto (Unsp spec) [#/Vol] 0.67 10*3/uL 0.83-4.51 [facility] Basophil percentageOrdered B y: Sachin Murillo on 11-21-2023 Basophils (Bld) [#/Vol] 4.7 10*3/uL 4.4-11.0 [facility] Basophils (Bld) [#/Vol] 2.9 10*3/uL 2.0-7.7 [facility] Basophils/100 WBC (Bld) 0.6 % 0-1 [facility] Basophils/100 WBC (Bld) 62.0 % 47-70 [facility] Basophils/100 WBC (Bld) 0.9 % 0-5 [facility] Eosinophils/100 WBC (Bld) 0.9 % 0-5 [facility] Neutrophils (Bld) [#/Vol] 2.9 10*3/uL 2.0-7.7 [facility] Neutrophils/100 WBC (Bld) 62.0 % 47-70 [facility] WBC (Bld) [#/Vol] 4.7 10*3/uL 4.4-11.0 [facility] Blood erythrocytes count (nu mber/volume)Ordered By: Sachin Murillo on 11-21-2023 RBC (Bld) [#/Vol] 3.54 10*6/uL 4.2-5.4 [facility] Blood hemoglobin measurement (mass/volume)Ordered By: Sachin Murillo on 11-21-2023 Hemoglobin (Bld) [Mass/Vol] 10.2 g/dL 12.0-15.0 [facility] Blood lymphocytes/100 leukoc ytesOrdered By: Sachin Murillo on 11-21-2023 Lymphocytes/100 WBC (Bld) 14.3 % 19-41 [facility] Blood monocytes/100 leukocyt esOrdered By: Sachin Murillo on 11-21-2023 Monocytes/100 WBC (Bld) 18.8 % 0-10 [facility] Blood platelet mean volumeOr dered By: Sachin Murillo on 11-21-2023 Platelet mean volume (Bld) [Entitic vol] 9.7 fL 6.2-12.0 [facility] Determination of erythrocyte mean corpuscular volume (MCV)Ordered By: Sachin Murillo on 11-21-2023 MCV (RBC) [Entitic vol] 87.0 fL 81-99 [facility] Hematocrit Auto (Bld) [Volum e fraction]Ordered By: Sachin Murillo on 11-21-2023 Hematocrit (Bld) [Volume fraction] 30.8 % 37-47 [facility] Laboratory - Hematology and Cell countsOrdered By: Sachin Murillo on 11-21-2023 Erythrocyte distribution width (RBC) [Entitic vol] 48.1 fL 35.1-43.9 [facility] Erythrocyte distribution width (RBC) [Ratio] 15.0 % 11.6-14.6 [facility] Immature granulocytes/100 WBC (Bld) 3.400 % 0.0-0.9 [facility] Comment on above: IG% - Immature Granu locytes (promyelocytes, myelocytes and metamyelocytes) > 1% indicates that a LEFT SHIFT is Present. MCH (RBC) [Entitic mass] 28.8 pg 27.0-32.0 [facility] Nucleated RBC/100 WBC (Bld) [Ratio] 0 % 0-5 [facility] MCHC Auto (RBC) [Mass/Vol]Or dered By: Sachin Murillo on 11-21-2023 MCHC (RBC) [Mass/Vol] 33.1 g/dL 32-36 [facility] No Panel InformationOrdered By: Sachin Murillo on 11-21-2023 28.8 pg 27.0-32.0 [facility] 15.0 % 11.6-14.6 [facility] 48.1 fl 35.1-43.9 [facility] 3.400 % 0.0-0.9 [facility] 0 % 0-5 [facility] Platelets bldOrdered By: Ciro Murillo on 11-21-2023 Platelets (Bld) [#/Vol] 141 10*3/uL 150-450 [facility] Basophil percentageOrdered B y: Sachin Murillo on 11-20-2023 Basophil percentage 94 mg/dL 74-106 [facility] Basophil percentage 137 mmol/L 136-145 [facility] Basophil percentage 3.4 mmol/L 3.5-5.1 [facility] Basophil percentage 106 mmol/L 98-107 [facility] Chloride [Moles/Vol] 106 mmol/L 98-107 [facility] Glucose [Mass/Vol] 94 mg/dL 74-106 [facility] Potassium [Moles/Vol] 3.4 mmol/L 3.5-5.1 [facility] Sodium [Moles/Vol] 137 mmol/L 136-145 [facility] Blood manual differential co mment interpretation (narrative result)Ordered By: Sachin Murillo on 11-20-2023 Manual differential comment Jimy (Bld) [Interp] COMMENT [facility] Comment on above: LYMPHOPENIA. Laboratory - Chemistry and C hemistry - challengeOrdered By: Sachin Murillo on 11-20-2023 CO2 [Moles/Vol] 21.0 mmol/L 21.0-32.0 [facility] Urea nitrogen/Creatinine [Mass ratio] 11.5 mg/mg 10-20 [facility] No Panel InformationOrdered By: Sachin Murillo on 11-20-2023 Estimated Creatinine Clearance Calc 53.47 ml/min [facility] Estimated GFR (MDRD) Amer 83 mL/min >60 [facility] Comment on above: GFR Calc Estimated GFR (MDRD) Non-Af Amer 69 mL/min >60 [facility] Comment on above: Non- GFR Calc 69 mL/min >60 [facility] 83 mL/min >60 [facility] 53.47 ml/min [facility] 11.5 RATIO 10-20 [facility] 21.0 mmol/L 21.0-32.0 [facility] No Panel InformationOrdered By: Roman Hewitt on 11-20-2023 Troponin I High Sensitivity 26 pg/mL 3.0-54.0 [facility] Comment on above: Please Note: New Kim t Units and Gender Specific Reference Ranges. For more information see Policy Stat Procedure [place] High Sensitivity Troponin (TNIH) and attachments. 26 pg/mL 3.0-54.0 [facility] Serum or plasma calcium stefania urement (mass/volume)Ordered By: Sachin Murillo on 11-20-2023 Calcium [Mass/Vol] 8.0 mg/dL 8.5-10.1 [facility] Serum or plasma creatinine m easurement (mass/volume)Ordered By: Sachin Murillo on 11-20-2023 Creatinine [Mass/Vol] 0.87 mg/dL 0.55-1.02 [facility] Comment on above: The validity of the calculated GFR & GFRAA in patients over 70 years has not been determined. Clinical correlation is essential. Serum or plasma urea nitroge n measurement (mass/volume)Ordered By: Sachin Murillo on 11-20-2023 Urea nitrogen [Mass/Vol] 10 mg/dL 7-18 [facility] Thin prep Papanicolaou smear with manual screeningOrdered By: Sachin Murillo on 11-20-2023 Thin prep Papanicolaou smear with manual screening 10 5-15 [facility] Basophil percentageOrdered B y: Sommer White on 11-19-2023 Basophil percentage 5.5 g/dL 6.4-8.2 [facility] Basophil percentage 0.50 mg/dL 0.20-1.00 [facility] Basophil percentage 116 mg/dL <199 [facility] Bilirubin [Mass/Vol] 0.50 mg/dL 0.20-1.00 [facility] Comment on above: For patients on eltr ombopag therapy, use of Dimension [place] TBIL is not recommended. Cholesterol [Mass/Vol] 116 mg/dL <200 [facility] Comment on above: <200 mg/dL Desirable 200-240 mg/dL Borderline >240 mg/dL High Risk Protein [Mass/Vol] 5.5 g/dL 6.4-8.2 [facility] Triglyceride [Mass/Vol] 116 mg/dL <199 [facility] Comment on above: The drugs N-Acetylcy steine and Metamizole may falsely depress this assay.Serum Triglycerides Reference Interval Normal <150 mg/dL Borderline high 150 - 199 mg/dL High 200 - 499 mg/dL Very High > or = 500 mg/dL Laboratory - Chemistry and C hemistry - challengeOrdered By: Sommer Resendiz on 11-19-2023 ALP [Catalytic activity/Vol] 79 U/L 45-117 [facility] ALT [Catalytic activity/Vol] 16 U/L [facility] Free T4 [Mass/Vol] 1.66 ng/dL 0.76-1.46 [facility] Globulin (S) [Mass/Vol] 2.9 g/dL 2.2-4.2 [facility] No Panel InformationOrdered By: Sommer Resendiz on 11-19-2023 Thyroid Stimulating Hormone (TSH) 1.42 uIU/mL 0.358-3.74 [facility] 2.9 g/dL 2.2-4.2 [facility] 79 U/L 45-117 [facility] 16 U/L [facility] 1.42 uIU/mL 0.358-3.74 [facility] 1.66 ng/dL 0.76-1.46 [facility] Serum or plasma albumin stefania urement (mass/volume)Ordered By: Sommer Resendiz on 11-19-2023 Albumin [Mass/Vol] 2.6 g/dL 3.2-5.0 [facility] Serum or plasma albumin/glob ulin mass ratioOrdered By: Sommer Resendiz on 11-19-2023 Albumin/Globulin [Mass ratio] 0.9 {ratio} 0.9-2.4 [facility] Serum or plasma cholesterol in HDL measurement (mass/volume)Ordered By: Sommer Resendiz on 11-19-2023 Cholesterol in HDL [Mass/Vol] 30 mg/dL >40 [facility] Comment on above: The drugs N-Acetylcy steine and Metamizole may falsely depress this assay. Reference Range HDL <40 mg/dL Low HDL Cholesterol HDL >or= 60 mg/dL High HDL Cholesterol Serum or plasma cholesterol in VLDL measurement (mass/volume)Ordered By: Sommer Resendiz on 11-19-2023 Cholesterol in VLDL [Mass/Vol] 23 mg/dL 5-40 [facility] Serum or plasma low density lipoprotein (LDL) cholesterol measurement (mass/volume)Ordered By: [facility] Martín on 11-19-2023 Cholesterol in LDL [Mass/Vol] 63 mg/dL 0-130 [facility] Thin prep Papanicolaou smear with manual screeningOrdered By: Sommer Resendiz on 11-19-2023 Thin prep Papanicolaou smear with manual screening 17 U/L 15-37 [facility] Absolute lymphocyte countOrd ered By: Michele Kebede on 11-18-2023 Lymphocytes Auto (Unsp spec) [#/Vol] 1.07 10*3/uL 0.83-4.51 [facility] Basophil percentageOrdered B y: Michele Kebede on 11-18-2023 Basophil percentage 0-5 SEEN /hpf 0-5 [facility] Basophils/100 WBC (Bld) 0.4 % 0-1 [facility] Bilirubin [Mass/Vol] 0.40 mg/dL 0.20-1.00 [facility] Comment on above: For patients on eltr ombopag therapy, use of Dimension [place] TBIL is not recommended. Chloride [Moles/Vol] 110 mmol/L 98-107 [facility] Eosinophils/100 WBC (Bld) 0.2 % 0-5 [facility] Glucose [Mass/Vol] 116 mg/dL 74-106 [facility] Comment on above: Fasting Glucose resu lt from 100 to 125 mg/dL suggests IMPAIRED HOMEOSTASIS per A.D.A. criteria. Neutrophils (Bld) [#/Vol] 3.7 10*3/uL 2.0-7.7 [facility] Neutrophils/100 WBC (Bld) 66.4 % 47-70 [facility] Potassium [Moles/Vol] 3.5 mmol/L 3.5-5.1 [facility] Protein [Mass/Vol] 6.5 g/dL 6.4-8.2 [facility] Sodium [Moles/Vol] 140 mmol/L 136-145 [facility] WBC (Bld) [#/Vol] 5.5 10*3/uL 4.4-11.0 [facility] Bilirubin Test strip Ql (U)O rdered By: Michele Kebede on 11-18-2023 Bilirubin Ql (U) Negative Negative [facility] Blood erythrocytes count (nu mber/volume)Ordered By: Michele Kebede on 11-18-2023 RBC (Bld) [#/Vol] 4.56 10*6/uL 4.2-5.4 [facility] Blood hemoglobin measurement (mass/volume)Ordered By: Michele Kebede on 11-18-2023 Hemoglobin (Bld) [Mass/Vol] 12.9 g/dL 12.0-15.0 [facility] Blood lymphocytes/100 leukoc ytesOrdered By: Michele Kebede on 11-18-2023 Lymphocytes/100 WBC (Bld) 19.4 % 19-41 [facility] Blood monocytes/100 leukocyt esOrdered By: Michele Kebede on 11-18-2023 Monocytes/100 WBC (Bld) 12.9 % 0-10 [facility] Blood platelet mean volumeOr dered By: Michele Kebede on 11-18-2023 Platelet mean volume (Bld) [Entitic vol] 10.3 fL 6.2-12.0 [facility] Determination of erythrocyte mean corpuscular volume (MCV)Ordered By: Michele Kebede on 11-18-2023 MCV (RBC) [Entitic vol] 85.7 fL 81-99 [facility] Hematocrit Auto (Bld) [Volum e fraction]Ordered By: Michele Kebede on 11-18-2023 Hematocrit (Bld) [Volume fraction] 39.1 % 37-47 [facility] Ketones Test strip Ql (U)Ord ered By: Michele Kebede on 11-18-2023 Ketones Ql (U) 5 mg/dl Negative [facility] Laboratory - Chemistry and C hemistry - challengeOrdered By: Michele Kebede on 11-18-2023 ALP [Catalytic activity/Vol] 93 U/L 45-117 [facility] ALT [Catalytic activity/Vol] 18 U/L 13-56 [facility] CO2 [Moles/Vol] 22.0 mmol/L 21.0-32.0 [facility] Globulin (S) [Mass/Vol] 3.4 g/dL 2.2-4.2 [facility] Urea nitrogen/Creatinine [Mass ratio] 12.2 mg/mg 10-20 [facility] Laboratory - Chemistry and C hemistry - challengeOrdered By: Sommer Resendiz on 11-18-2023 Magnesium [Mass/Vol] 1.8 mg/dL 1.6-2.6 [facility] Laboratory - Hematology and Cell countsOrdered By: Michele Kebede on 11-18-2023 Erythrocyte distribution width (RBC) [Entitic vol] 46.5 fL 35.1-43.9 [facility] Erythrocyte distribution width (RBC) [Ratio] 14.8 % 11.6-14.6 [facility] Immature granulocytes/100 WBC (Bld) 0.700 % 0.0-0.9 [facility] Comment on above: IG% - Immature Granu locytes (promyelocytes, myelocytes and metamyelocytes) > 1% indicates that a LEFT SHIFT is Present. MCH (RBC) [Entitic mass] 28.3 pg 27.0-32.0 [facility] Nucleated RBC/100 WBC (Bld) [Ratio] 0 % 0-5 [facility] MCHC Auto (RBC) [Mass/Vol]Or dered By: Michele Kebede on 11-18-2023 MCHC (RBC) [Mass/Vol] 33.0 g/dL 32-36 [facility] Mucus LM Ql (Urine sed)Order ed By: Michele Kebede on 11-18-2023 Mucus Ql (Urine sed) 0 SEEN /hpf [facility] Nitrite Test strip Ql (U)Ord ered By: Michele Kebede on 11-18-2023 Nitrite Ql (U) Negative Negative [facility] No Panel InformationOrdered By: Michele eKbede on 11-18-2023 Estimated Creatinine Clearance Calc 48.26 ml/min [facility] Estimated GFR (MDRD) Amer 72 mL/min >60 [facility] Comment on above: GFR Calc Estimated GFR (MDRD) Non-Af Amer 59 mL/min >60 [facility] Comment on above: Non- GFR Calc Troponin I High Sensitivity 60 pg/mL 3.0-54.0 [facility] Comment on above: Please Note: New Kim t Units and Gender Specific Reference Ranges. For more information see Policy Stat Procedure [place] High Sensitivity Troponin (TNIH) and attachments. No Panel InformationOrdered By: Sommer Resendiz on 11-18-2023 1.8 mg/dL 1.6-2.6 [facility] Platelets bldOrdered By: Randee Kebede on 11-18-2023 Platelets (Bld) [#/Vol] 123 10*3/uL 150-450 [facility] Protein Test strip Ql (U)Ord ered By: Michele Kebede on 11-18-2023 Protein Ql (U) Negative Negative [facility] Serum or plasma albumin stefania urement (mass/volume)Ordered By: Michele Kebede on 11-18-2023 Albumin [Mass/Vol] 3.1 g/dL 3.2-5.0 [facility] Serum or plasma albumin/glob ulin mass ratioOrdered By: Michele Kebede on 11-18-2023 Albumin/Globulin [Mass ratio] 0.9 {ratio} 0.9-2.4 [facility] Serum or plasma calcium stefania urement (mass/volume)Ordered By: Michele Kebede on 11-18-2023 Calcium [Mass/Vol] 8.0 mg/dL 8.5-10.1 [facility] Serum or plasma creatinine m easurement (mass/volume)Ordered By: Michele Kebede on 11-18-2023 Creatinine [Mass/Vol] 0.99 mg/dL 0.55-1.02 [facility] Comment on above: The validity of the calculated GFR & GFRAA in patients over 70 years has not been determined. Clinical correlation is essential. Serum or plasma urea nitroge n measurement (mass/volume)Ordered By: Michele Kebede on 11-18-2023 Urea nitrogen [Mass/Vol] 12 mg/dL 7-18 [facility] Squamous epithelial cells de tection in urine sediment by light microscopyOrdered By: Michele Kebede on 11-18-2023 Epithelial cells.squamous LM Ql (Urine sed) 5-10 SEEN /hpf 5-10 [facility] Stool gastrointestinal hemog lobin detection by immunologic methodOrdered By: Michele Kebede on 11-18-2023 Lower GI hemoglobin IA Ql (Stl) [facility] Lower GI hemoglobin IA Ql (Stl) [facility] Thin prep Papanicolaou smear with manual screeningOrdered By: Michele Kebede on 11-18-2023 Thin prep Papanicolaou smear with manual screening 17 U/L 15-37 [facility] Thin prep Papanicolaou smear with manual screening 8 5-15 [facility] Urine blood detectionOrdered By: Michele Kebede on 11-18-2023 RBC Ql (U) 25 /ul Negative [facility] RBC Ql (U) 0-5 SEEN /hpf 0-5 [facility] Urine clarityOrdered By: Randee Kebede on 11-18-2023 Clarity (U) Clear Clear [facility] Urine color determinationOrd ered By: Michele Kebede on 11-18-2023 Color (U) Yellow Yellow [facility] Urine glucose detectionOrder ed By: Michele Kebede on 11-18-2023 Glucose Ql (U) Normal mg/dl Normal [facility] Urine leukocyte esterase det ection by dipstickOrdered By: Michele Kebede on 11-18-2023 Leukocyte esterase Test strip Ql (U) 25 /ul Negative [facility] Urine pHOrdered By: Michele gutierrez on 11-18-2023 pH (U) 6.0 [pH] 5.0 - 8.0 [facility] Urine sediment bacteria coun t by microscopy (number/high power field)Ordered By: Michele Kebede on 11-18-2023 Bacteria LM.HPF (Urine sed) [#/Area] 1 /[HPF] None Seen [facility] Urine specific gravity measu rementOrdered By: Michele Kebede on 11-18-2023 Specific gravity (U) [Rel density] 1.015 1.002-1.03 0 [facility] Urobilinogen Auto test strip Ql (U)Ordered By: Michele Kebede on 11-18-2023 Urobilinogen Ql (U) Normal mg/dl Normal [facility] Absolute lymphocyte countOrd ered By: Sommer Resendiz on 11-16-2023 Lymphocytes Auto (Unsp spec) [#/Vol] 0.96 10*3/uL 0.83-4.51 [facility] Basophil percentageOrdered B y: Sommer Resendiz on 11-16-2023 Basophil percentage 73 mg/dL 74-106 [facility] Basophil percentage 5.9 g/dL 6.4-8.2 [facility] Basophil percentage 0.40 mg/dL 0.20-1.00 [facility] Basophil percentage 135 mmol/L 136-145 [facility] Basophil percentage 3.6 mmol/L 3.5-5.1 [facility] Basophil percentage 107 mmol/L 98-107 [facility] Basophils (Bld) [#/Vol] 3.8 10*3/uL 4.4-11.0 [facility] Basophils (Bld) [#/Vol] 2.2 10*3/uL 2.0-7.7 [facility] Basophils/100 WBC (Bld) 0.3 % 0-1 [facility] Basophils/100 WBC (Bld) 57.7 % 47-70 [facility] Bilirubin [Mass/Vol] 0.40 mg/dL 0.20-1.00 [facility] Comment on above: For patients on eltr ombopag therapy, use of Dimension [place] TBIL is not recommended. Chloride [Moles/Vol] 107 mmol/L 98-107 [facility] Eosinophils/100 WBC (Bld) 0.3 % 0-5 [facility] Glucose [Mass/Vol] 73 mg/dL 74-106 [facility] Neutrophils (Bld) [#/Vol] 2.2 10*3/uL 2.0-7.7 [facility] Neutrophils/100 WBC (Bld) 57.7 % 47-70 [facility] Potassium [Moles/Vol] 3.6 mmol/L 3.5-5.1 [facility] Protein [Mass/Vol] 5.9 g/dL 6.4-8.2 [facility] Sodium [Moles/Vol] 135 mmol/L 136-145 [facility] WBC (Bld) [#/Vol] 3.8 10*3/uL 4.4-11.0 [facility] Blood erythrocytes count (nu mber/volume)Ordered By: Sommer Resendiz on 11-16-2023 RBC (Bld) [#/Vol] 4.20 10*6/uL 4.2-5.4 [facility] Blood hemoglobin measurement (mass/volume)Ordered By: Sommer Resendiz on 11-16-2023 Hemoglobin (Bld) [Mass/Vol] 12.2 g/dL 12.0-15.0 [facility] Blood lymphocytes/100 leukoc ytesOrdered By: Sommer Resendiz on 11-16-2023 Lymphocytes/100 WBC (Bld) 25.5 % 19-41 [facility] Blood monocytes/100 leukocyt esOrdered By: Sommer Resendiz on 11-16-2023 Monocytes/100 WBC (Bld) 15.7 % 0-10 [facility] Blood platelet mean volumeOr dered By: Sommer Resendiz on 11-16-2023 Platelet mean volume (Bld) [Entitic vol] 10.1 fL 6.2-12.0 [facility] Determination of erythrocyte mean corpuscular volume (MCV)Ordered By: Sommer Resendiz on 11-16-2023 MCV (RBC) [Entitic vol] 88.3 fL 81-99 [facility] Hematocrit Auto (Bld) [Volum e fraction]Ordered By: Sommer Resendiz on 11-16-2023 Hematocrit (Bld) [Volume fraction] 37.1 % 37-47 [facility] Laboratory - Chemistry and C hemistry - challengeOrdered By: Sommer Resendiz on 11-16-2023 ALP [Catalytic activity/Vol] 90 U/L 45-117 [facility] ALT [Catalytic activity/Vol] 23 U/L 13-56 [facility] CO2 [Moles/Vol] 21.0 mmol/L 21.0-32.0 [facility] Globulin (S) [Mass/Vol] 3.0 g/dL 2.2-4.2 [facility] Urea nitrogen/Creatinine [Mass ratio] 26.4 mg/mg 10-20 [facility] Laboratory - Hematology and Cell countsOrdered By: Sommer Resendiz on 11-16-2023 Erythrocyte distribution width (RBC) [Entitic vol] 48.2 fL 35.1-43.9 [facility] Erythrocyte distribution width (RBC) [Ratio] 14.8 % 11.6-14.6 [facility] Immature granulocytes/100 WBC (Bld) 0.500 % 0.0-0.9 [facility] Comment on above: IG% - Immature Granu locytes (promyelocytes, myelocytes and metamyelocytes) > 1% indicates that a LEFT SHIFT is Present. MCH (RBC) [Entitic mass] 29.0 pg 27.0-32.0 [facility] Nucleated RBC/100 WBC (Bld) [Ratio] 0 % 0-5 [facility] MCHC Auto (RBC) [Mass/Vol]Or dered By: Sommer Resendiz on 11-16-2023 MCHC (RBC) [Mass/Vol] 32.9 g/dL 32-36 [facility] No Panel InformationOrdered By: Sommer Resendiz on 11-16-2023 Estimated Creatinine Clearance Calc 28.68 ml/min [facility] Estimated GFR (MDRD) Amer 41 mL/min >60 [facility] Comment on above: GFR Calc Estimated GFR (MDRD) Non-Af Amer 34 mL/min >60 [facility] Comment on above: Non- GFR Calc 29.0 pg 27.0-32.0 [facility] 14.8 % 11.6-14.6 [facility] 48.2 fl 35.1-43.9 [facility] 0.500 % 0.0-0.9 [facility] 0 % 0-5 [facility] 34 mL/min >60 [facility] 41 mL/min >60 [facility] 28.68 ml/min [facility] 26.4 RATIO 10-20 [facility] 3.0 g/dL 2.2-4.2 [facility] 90 U/L 45-117 [facility] 23 U/L 13-56 [facility] 21.0 mmol/L 21.0-32.0 [facility] Platelets bldOrdered By: Aut susan Resendiz on 11-16-2023 Platelets (Bld) [#/Vol] 136 10*3/uL 150-450 [facility] Serum or plasma albumin stefania urement (mass/volume)Ordered By: Sommer Resendiz on 11-16-2023 Albumin [Mass/Vol] 2.9 g/dL 3.2-5.0 [facility] Serum or plasma albumin/glob ulin mass ratioOrdered By: Sommer Resendiz on 11-16-2023 Albumin/Globulin [Mass ratio] 1.0 {ratio} 0.9-2.4 [facility] Serum or plasma calcium stefania urement (mass/volume)Ordered By: Sommer Resendiz on 11-16-2023 Calcium [Mass/Vol] 7.4 mg/dL 8.5-10.1 [facility] Serum or plasma creatinine m easurement (mass/volume)Ordered By: Sommer Resendiz on 11-16-2023 Creatinine [Mass/Vol] 1.59 mg/dL 0.55-1.02 [facility] Comment on above: The validity of the calculated GFR & GFRAA in patients over 70 years has not been determined. Clinical correlation is essential. Serum or plasma urea nitroge n measurement (mass/volume)Ordered By: Sommer Resendiz on 11-16-2023 Urea nitrogen [Mass/Vol] 42 mg/dL 7-18 [facility] Thin prep Papanicolaou smear with manual screeningOrdered By: Sommer Resendiz on 11-16-2023 Thin prep Papanicolaou smear with manual screening 28 U/L 15-37 [facility] Thin prep Papanicolaou smear with manual screening 7 5-15 [facility] Absolute lymphocyte countOrd ered By: Michele Kebede on 11-15-2023 Lymphocytes Auto (Unsp spec) [#/Vol] 0.70 10*3/uL 0.83-4.51 [facility] Basophil percentageOrdered B y: Michele Kebede on 11-15-2023 Basophil percentage 5-10 SEEN /hpf 0-5 [facility] Basophils/100 WBC (Bld) 0.2 % 0-1 [facility] Bilirubin [Mass/Vol] 0.30 mg/dL 0.20-1.00 [facility] Comment on above: For patients on eltr ombopag therapy, use of Dimension [place] TBIL is not recommended. Chloride [Moles/Vol] 97 mmol/L 98-107 [facility] Eosinophils/100 WBC (Bld) 0.0 % 0-5 [facility] Glucose [Mass/Vol] 80 mg/dL 74-106 [facility] Neutrophils (Bld) [#/Vol] 3.4 10*3/uL 2.0-7.7 [facility] Neutrophils/100 WBC (Bld) 70.4 % 47-70 [facility] Potassium [Moles/Vol] 3.9 mmol/L 3.5-5.1 [facility] Protein [Mass/Vol] 6.9 g/dL 6.4-8.2 [facility] Sodium [Moles/Vol] 130 mmol/L 136-145 [facility] WBC (Bld) [#/Vol] 4.9 10*3/uL 4.4-11.0 [facility] Bilirubin Test strip Ql (U)O rdered By: Michele Kebede on 11-15-2023 Bilirubin Ql (U) Negative Negative [facility] Blood erythrocytes count (nu mber/volume)Ordered By: Michele Kebede on 11-15-2023 RBC (Bld) [#/Vol] 4.74 10*6/uL 4.2-5.4 [facility] Blood hemoglobin measurement (mass/volume)Ordered By: Michele Kebede on 11-15-2023 Hemoglobin (Bld) [Mass/Vol] 13.7 g/dL 12.0-15.0 [facility] Blood lymphocytes/100 leukoc ytesOrdered By: Michele Kebede on 11-15-2023 Lymphocytes/100 WBC (Bld) 14.3 % 19-41 [facility] Blood monocytes/100 leukocyt esOrdered By: Michele Kebede on 11-15-2023 Monocytes/100 WBC (Bld) 14.5 % 0-10 [facility] Blood platelet mean volumeOr dered By: Michele Kebede on 11-15-2023 Platelet mean volume (Bld) [Entitic vol] 10.1 fL 6.2-12.0 [facility] Calcium oxalate crystals det ection in urine sediment by light microscopyOrdered By: Michele Kebede on 11-15-2023 Calcium oxalate crystals LM Ql (Urine sed) RARE /hpf [facility] Determination of erythrocyte mean corpuscular volume (MCV)Ordered By: Michele Kebede on 11-15-2023 MCV (RBC) [Entitic vol] 86.3 fL 81-99 [facility] Hematocrit Auto (Bld) [Volum e fraction]Ordered By: Michele Kebede on 11-15-2023 Hematocrit (Bld) [Volume fraction] 40.9 % 37-47 [facility] Ketones Test strip Ql (U)Ord ered By: Michele Kebede on 11-15-2023 Ketones Ql (U) 5 mg/dl Negative [facility] Laboratory - Chemistry and C hemistry - challengeOrdered By: Michele Kebede on 11-15-2023 ALP [Catalytic activity/Vol] 104 U/L 45-117 [facility] ALT [Catalytic activity/Vol] 27 U/L 13-56 [facility] CO2 [Moles/Vol] 21.0 mmol/L 21.0-32.0 [facility] Globulin (S) [Mass/Vol] 3.6 g/dL 2.2-4.2 [facility] Lipase [Catalytic activity/Vol] 60 U/L 13- [facility] Comment on above: Please note:LIPASE r evised reference range effective 23. New Lipase methodology. Expected to produce lower values than the previous assay method. NEW Reference Range: 13 - 75 U/L Urea nitrogen/Creatinine [Mass ratio] 25.5 mg/mg 10-20 [facility] Laboratory - Hematology and Cell countsOrdered By: Michele Kebede on 11-15-2023 Erythrocyte distribution width (RBC) [Entitic vol] 46.6 fL 35.1-43.9 [facility] Erythrocyte distribution width (RBC) [Ratio] 14.6 % 11.6-14.6 [facility] Immature granulocytes/100 WBC (Bld) 0.600 % 0.0-0.9 [facility] Comment on above: IG% - Immature Granu locytes (promyelocytes, myelocytes and metamyelocytes) > 1% indicates that a LEFT SHIFT is Present. MCH (RBC) [Entitic mass] 28.9 pg 27.0-32.0 [facility] Nucleated RBC/100 WBC (Bld) [Ratio] 0 % 0-5 [facility] Laboratory - Microbiology an d Antimicrobial susceptibilityOrdered By: Michele Kebede on 11-15-2023 SARS-CoV-2 (COVID-19) RNA JAYDON+probe Ql (Unsp spec) Influenzae A [facility] MCHC Auto (RBC) [Mass/Vol]Or dered By: Michele Kebede on 11-15-2023 MCHC (RBC) [Mass/Vol] 33.5 g/dL 32-36 [facility] Mucus LM Ql (Urine sed)Order ed By: Michele Kebede on 11-15-2023 Mucus Ql (Urine sed) 0 SEEN /hpf [facility] Nitrite Test strip Ql (U)Ord ered By: Michele Kebede on 11-15-2023 Nitrite Ql (U) Negative Negative [facility] No Panel InformationOrdered By: Michele Kebede on 11-15-2023 Influenzae A [facility] Influenzae A [facility] Estimated Creatinine Clearance Calc 19.03 ml/min [facility] Estimated GFR (MDRD) Amer 24 mL/min >60 [facility] Comment on above: GFR Calc Estimated GFR (MDRD) Non-Af Amer 20 mL/min >60 [facility] Comment on above: Non- GFR Calc 60 U/L 13-75 [facility] Platelets bldOrdered By: Randee Kebede on 11-15-2023 Platelets (Bld) [#/Vol] 164 10*3/uL 150-450 [facility] Protein Test strip Ql (U)Ord ered By: Michele Kebede on 11-15-2023 Protein Ql (U) 15 mg/dl Negative [facility] Serum or plasma albumin stefania urement (mass/volume)Ordered By: Michele Kebede on 11-15-2023 Albumin [Mass/Vol] 3.3 g/dL 3.2-5.0 [facility] Serum or plasma albumin/glob ulin mass ratioOrdered By: Michele Kebede on 11-15-2023 Albumin/Globulin [Mass ratio] 0.9 {ratio} 0.9-2.4 [facility] Serum or plasma calcium stefania urement (mass/volume)Ordered By: Michele Kebede on 11-15-2023 Calcium [Mass/Vol] 8.1 mg/dL 8.5-10.1 [facility] Serum or plasma creatinine m easurement (mass/volume)Ordered By: Michele Kebede on 11-15-2023 Creatinine [Mass/Vol] 2.51 mg/dL 0.55-1.02 [facility] Comment on above: The validity of the calculated GFR & GFRAA in patients over 70 years has not been determined. Clinical correlation is essential. Serum or plasma urea nitroge n measurement (mass/volume)Ordered By: Michele Kebede on 11-15-2023 Urea nitrogen [Mass/Vol] 64 mg/dL 7-18 [facility] Serum procalcitonin measurem entOrdered By: Sommer Resendiz on 11-15-2023 Procalcitonin [Mass/Vol] 0.24 ng/mL 0.00-0.09 [facility] Comment on above: A procalcitonin (PCT [...] sed) 5-10 SEEN /hpf 5-10 [facility] Thin prep Papanicolaou smear with manual screeningOrdered By: Michele Kebede on 11-15-2023 Thin prep Papanicolaou smear with manual screening 34 U/L 15-37 [facility] Thin prep Papanicolaou smear with manual screening 12 5-15 [facility] Urine blood detectionOrdered By: Michele Kebede on 11-15-2023 RBC Ql (U) 25 /ul Negative [facility] RBC Ql (U) 0-5 SEEN /hpf 0-5 [facility] Urine clarityOrdered By: Randee Kebede on 11-15-2023 Clarity (U) Sl. Cloudy Clear [facility] Urine color determinationOrd ered By: Michele Kebede on 11-15-2023 Color (U) Yellow Yellow [facility] Urine glucose detectionOrder ed By: Michele Kebede on 11-15-2023 Glucose Ql (U) Normal mg/dl Normal [facility] Urine leukocyte esterase det ection by dipstickOrdered By: Michele Kebede on 11-15-2023 Leukocyte esterase Test strip Ql (U) 100 /ul Negative [facility] Urine pHOrdered By: Michele gutierrez on 11-15-2023 pH (U) 5.0 [pH] 5.0 - 8.0 [facility] Urine sediment bacteria coun t by microscopy (number/high power field)Ordered By: Michele Kebede on 11-15-2023 Bacteria LM.HPF (Urine sed) [#/Area] RARE /hpf None Seen [facility] Urine specific gravity measu rementOrdered By: Michele Kebede on 11-15-2023 Specific gravity (U) [Rel density] 1.015 1.002-1.03 0 [facility] Urobilinogen Auto test strip Ql (U)Ordered By: Michele Kebede on 11-15-2023 Urobilinogen Ql (U) Normal mg/dl Normal [facility] IR ARTERIOGRAM EXTREMITY HUNG ATERAL LOWERon 11-13-2023 IR ARTERIOGRAM EXTREMITY BILATERAL LOWER ORIGINAL Images acquired, not reported on this accession number. Normal [facility] ([place]) .Auto Diffon 10-26-2023 Basophil, Absolute 0.1 10 3/mcL Normal 0.0-0.3 [facility] ([place]) Comment on above: Performed By: #### A KAILA, ADIFF, GFR, BMP, CBC #### [address] [address] Basophils/100 WBC (Bld) 0.8 % Normal 0.0-2.5 A [facility] ([place]) Comment on above: Performed By: #### A KAILA, ADIFF, GFR, BMP, CBC #### [address] [address] Eosinophil, Absolute 0.1 10 3/mcL Normal 0.0-0.7 [facility] ([place] Comment on above: Performed By: #### A KAILA, ADIFF, GFR, BMP, CBC #### [address] [address] Eosinophils/100 WBC (Bld) 1.5 % Normal 0.0-6.0 [facility] ([place] Comment on above: Performed By: #### A KAILA, ADIFF, GFR, BMP, CBC #### [address] [address] Lymphocyte, Absolute 1.3 10 3/mcL Normal 0.9-4.3 [facility] ([place] Comment on above: Performed By: #### A KAILA, ADIFF, GFR, BMP, CBC #### [address] [address] Lymphocytes/100 WBC (Bld) 16.6 % Low 20.0-40.0 [facility] ([place] Comment on above: Performed By: #### A KAILA, ADIFF, GFR, BMP, CBC #### [address] [address] Monocyte, Absolute 0.6 10 3/mcL Normal 0.1-1.4 [facility] ([place] Comment on above: Performed By: #### A KAILA, ADIFF, GFR, BMP, CBC #### [address] [address] Monocytes/100 WBC (Bld) 7.8 % Normal 2.0-13.0 [facility] ([place]) Comment on above: Performed By: #### A KAILA, ADIFF, GFR, BMP, CBC #### [address] [address] Neutrophils/100 WBC (Bld) 73.3 % Normal 50.0-75.0 [facility] [place] Comment on above: Performed By: #### A KAILA, ADIFF, GFR, BMP, CBC #### [address] [address] .GFRon 10-26-2023 GFR 53 ml/min/1.73sqm Normal [facility] ([place] Comment on above: Result Comment: GFR Population [...] A KAILA, ADIFF, GFR, BMP, CBC #### [address] [address] GFR Non- 44 ml/min/1.73sqm Normal [facility] ([place] Comment on above: Result Comment: GFR Population [...] A KAILA, ADIFF, GFR, BMP, CBC #### [address] [address] .NEUABSon 10-26-2023 Neutrophil, Absolute 5.7 10 3/mcL Normal 2.3-8.1 [facility] ([place] Comment on above: Performed By: #### A KAILA, ADIFF, GFR, BMP, CBC #### [address] [address] BMPon 10-26-2023 BUN/Creatinine Ratio 25.6 ratio High 10.0-22.0 [facility] ([place]) Comment on above: Order Comment: hemol yzed talk to noa Performed By: #### A KAILA, ADIFF, GFR, BMP, CBC #### [address] [address] Calcium [Mass/Vol] 7.7 mg/dL Low 8.7-10.4 [facility] ([place]) Comment on above: Order Comment: hemol yzed talk to noa Performed By: #### A KAILA, ADIFF, GFR, BMP, CBC #### [address] [address] Chloride [Moles/Vol] 114 mmol/L High 98-110 [facility] ([place] Comment on above: Order Comment: hemol yzed talk to noa Performed By: #### A KAILA, ADIFF, GFR, BMP, CBC #### [address] [address] CO2 [Moles/Vol] 29 mmol/L Normal 22-32 [facility] ([place] Comment on above: Order Comment: hemol yzed talk to noa Performed By: #### A KAILA, ADIFF, GFR, BMP, CBC #### [address] [address] Creatinine [Mass/Vol] 1.21 mg/dL High 0.50-1.20 [facility] ([place]) Comment on above: Order Comment: hemol yzed talk to noa Performed By: #### A KAILA, ADIFF, GFR, BMP, CBC #### [address] [address] Electrolyte Balance -1.0 mEq/L Low 4.0-15.0 [facility] ([place]) Comment on above: Order Comment: hemol yzed talk to noa Performed By: #### A KAILA, ADIFF, GFR, BMP, CBC #### [address] [address] Potassium [Moles/Vol] 3.9 mmol/L Normal 3.5-5.0 [facility] ([place] Comment on above: Order Comment: hemol yzed talk to noa Performed By: #### A KAILA, ADIFF, GFR, BMP, CBC #### [address] [address] Sodium [Moles/Vol] 142 mmol/L Normal 136-145 [facility] ([place]) Comment on above: Order Comment: hemol yzed talk to noa Performed By: #### A KAILA, ADIFF, GFR, BMP, CBC #### [place] [id number] Glucose [Mass/Vol] 78 mg/dL Low 82-115 [facility] ([place] Comment on above: Order Comment: hemol yzed talk to noa Performed By: #### A KAILA, ADIFF, GFR, BMP, CBC #### [place] [address] Urea nitrogen [Mass/Vol] 31.0 mg/dL High 8.0-22.0 [facility] ([place] Comment on above: Order Comment: hemol yzed talk to noa Performed By: #### A KAILA, ADIFF, GFR, BMP, CBC #### [address] [address] CBCon 10-26-2023 Erythrocyte distribution width (RBC) [Ratio] 14.9 % Normal 11.5-15.5 [facility] ([place] Comment on above: Performed By: #### A KAILA, ADIFF, GFR, BMP, CBC #### [place] [address] Hematocrit (Bld) [Volume fraction] 40.0 % Normal 34.0-46.0 [facility] ([place] Comment on above: Performed By: #### A KAILA, ADIFF, GFR, BMP, CBC #### [address] [address] Hgb 13.7 G/dL Normal 12.0-16.0 [facility] ([place] Comment on above: Performed By: #### A KAILA, ADIFF, GFR, BMP, CBC #### [place] [address] MCH (RBC) [Entitic mass] 29.9 pg Normal 27.0-33.0 [facility] ([place] Comment on above: Performed By: #### A KAILA, ADIFF, GFR, BMP, CBC #### [place] [address] MCHC 34.2 G/dL Normal 32.0-36.0 [facility] ([place] Comment on above: Performed By: #### A KAILA, ADIFF, GFR, BMP, CBC #### [place] [address] MCV (RBC) [Entitic vol] 87.4 fL Normal 80.0-99.0 [facility] ([place] Comment on above: Performed By: #### A KAILA, ADIFF, GFR, BMP, CBC #### [place] [address] Platelet 188 10 3/mcL Normal 150-450 [facility] ([place] Comment on above: Performed By: #### A KAILA, ADIFF, GFR, BMP, CBC #### [place] [address] Platelet mean volume (Bld) [Entitic vol] 7.5 fL Normal 6.6-10.5 [facility] ([place] Comment on above: Performed By: #### A KAILA, ADIFF, GFR, BMP, CBC #### [place] [address] RBC 4.57 10 6/mcL Normal 4.10-5.30 [facility] ([place] Comment on above: Performed By: #### A KAILA, ADIFF, GFR, BMP, CBC #### [place] [address] WBC 7.8 10 3/mcL Normal 4.5-10.8 [facility] ([place] Comment on above: Performed By: #### A KAILA, ADIFF, GFR, BMP, CBC #### [place] [address] * Body fluid crystals type b y light microscopyOrdered By: Kai Jacobson on 10-22-2023 Crystals LM Nom (Body fld) See PATH REV [facility] Comment on above: CRYSTAL RESULT IS PRELIMINARY. SEE PATH REVIEW FOR FINAL REPORT. Review by pathologistOrdered By: Kai Jacobson on 10-22-2023 Pathologist review Jimy (Unsp spec) [Interp] Reviewed [facility] Comment on above: Previous reported re sult: Will follow Edited by: PELON on 10/23/23:1346Negative for Mann Thomas M.D. 10/23/23 AMENDED REPORT 10/23/23 1346 PATH REV previously reported as: Will follow Specimen source identificati on of body fluidOrdered By: Kai Jacobson on 10-22-2023 Specimen source Nom (Body fld) SYNOVIAL [facility] Absolute lymphocyte countOrd ered By: ED PROVIDER on 10-05-2023 Lymphocytes Auto (Unsp spec) [#/Vol] 1.62 10*3/uL 0.83-4.51 [facility] Basophil percentageOrdered B y: ED PROVIDER on 10-05-2023 Basophil percentage 108 mg/dL 74-106 [facility] Basophil percentage 142 mmol/L 136-145 [facility] Basophil percentage 4.3 mmol/L 3.5-5.1 [facility] Basophil percentage 110 mmol/L 98-107 [facility] Basophils (Bld) [#/Vol] 7.2 10*3/uL 4.4-11.0 [facility] Basophils (Bld) [#/Vol] 4.8 10*3/uL 2.0-7.7 [facility] Basophils/100 WBC (Bld) 0.7 % 0-1 [facility] Basophils/100 WBC (Bld) 66.3 % 47-70 [facility] Basophils/100 WBC (Bld) 2.9 % 0-5 [facility] Chloride [Moles/Vol] 110 mmol/L 98-107 [facility] Eosinophils/100 WBC (Bld) 2.9 % 0-5 [facility] Glucose [Mass/Vol] 108 mg/dL 74-106 [facility] Comment on above: Fasting Glucose resu lt from 100 to 125 mg/dL suggests IMPAIRED HOMEOSTASIS per A.D.A. criteria. Neutrophils (Bld) [#/Vol] 4.8 10*3/uL 2.0-7.7 [facility] Neutrophils/100 WBC (Bld) 66.3 % 47-70 [facility] Potassium [Moles/Vol] 4.3 mmol/L 3.5-5.1 [facility] Sodium [Moles/Vol] 142 mmol/L 136-145 [facility] WBC (Bld) [#/Vol] 7.2 10*3/uL 4.4-11.0 [facility] Blood erythrocytes count (nu mber/volume)Ordered By: ED PROVIDER on 10-05-2023 RBC (Bld) [#/Vol] 5.19 10*6/uL 4.2-5.4 [facility] Blood hemoglobin measurement (mass/volume)Ordered By: ED PROVIDER on 10-05-2023 Hemoglobin (Bld) [Mass/Vol] 14.9 g/dL 12.0-15.0 [facility] Blood lymphocytes/100 leukoc ytesOrdered By: ED PROVIDER on 10-05-2023 Lymphocytes/100 WBC (Bld) 22.4 % 19-41 [facility] Blood monocytes/100 leukocyt esOrdered By: ED PROVIDER on 10-05-2023 Monocytes/100 WBC (Bld) 7.3 % 0-10 [facility] Blood platelet mean volumeOr dered By: ED PROVIDER on 10-05-2023 Platelet mean volume (Bld) [Entitic vol] 9.6 fL 6.2-12.0 [facility] Determination of erythrocyte mean corpuscular volume (MCV)Ordered By: ED PROVIDER on 10-05-2023 MCV (RBC) [Entitic vol] 88.8 fL 81-99 [facility] Hematocrit Auto (Bld) [Volum e fraction]Ordered By: ED PROVIDER on 10-05-2023 Hematocrit (Bld) [Volume fraction] 46.1 % 37-47 [facility] Laboratory - Chemistry and C hemistry - challengeOrdered By: Yasmani Haynes on 10-05-2023 Magnesium [Mass/Vol] 2.0 mg/dL 1.6-2.6 [facility] Laboratory - Chemistry and C hemistry - challengeOrdered By: ED PROVIDER on 10-05-2023 CO2 [Moles/Vol] 27.0 mmol/L 21.0-32.0 [facility] Urea nitrogen/Creatinine [Mass ratio] 20.7 mg/mg 10-20 [facility] Laboratory - Hematology and Cell countsOrdered By: ED PROVIDER on 10-05-2023 Erythrocyte distribution width (RBC) [Entitic vol] 45.3 fL 35.1-43.9 [facility] Erythrocyte distribution width (RBC) [Ratio] 14.0 % 11.6-14.6 [facility] Immature granulocytes/100 WBC (Bld) 0.400 % 0.0-0.9 [facility] Comment on above: IG% - Immature Granu locytes (promyelocytes, myelocytes and metamyelocytes) > 1% indicates that a LEFT SHIFT is Present. MCH (RBC) [Entitic mass] 28.7 pg 27.0-32.0 [facility] Nucleated RBC/100 WBC (Bld) [Ratio] 0 % 0-5 [facility] MCHC Auto (RBC) [Mass/Vol]Or dered By: ED PROVIDER on 10-05-2023 MCHC (RBC) [Mass/Vol] 32.3 g/dL 32-36 [facility] No Panel InformationOrdered By: ED PROVIDER on 10-05-2023 Troponin I High Sensitivity 8 pg/mL 3.0-54.0 [facility] Comment on above: Please Note: New Kim t Units and Gender Specific Reference Ranges. For more information see Policy Stat Procedure [place] High Sensitivity Troponin (TNIH) and attachments. 8 pg/mL 3.0-54.0 [facility] Estimated Creatinine Clearance Calc 43.04 ml/min [facility] Estimated GFR (MDRD) Amer 63 mL/min >60 [facility] Comment on above: GFR Calc Estimated GFR (MDRD) Non-Af Amer 52 mL/min >60 [facility] Comment on above: Non- GFR Calc 28.7 pg 27.0-32.0 [facility] 14.0 % 11.6-14.6 [facility] 45.3 fl 35.1-43.9 [facility] 0.400 % 0.0-0.9 [facility] 0 % 0-5 [facility] 52 mL/min >60 [facility] 63 mL/min >60 [facility] 43.04 ml/min [facility] 20.7 RATIO 10-20 [facility] 27.0 mmol/L 21.0-32.0 [facility] No Panel InformationOrdered By: Yasmani Haynes on 10-05-2023 2.0 mg/dL 1.6-2.6 [facility] Platelets bldOrdered By: ED PROVIDER on 10-05-2023 Platelets (Bld) [#/Vol] 206 10*3/uL 150-450 [facility] Serum or plasma calcium stefania urement (mass/volume)Ordered By: ED PROVIDER on 10-05-2023 Calcium [Mass/Vol] 9.5 mg/dL 8.5-10.1 [facility] Serum or plasma creatinine m easurement (mass/volume)Ordered By: ED PROVIDER on 10-05-2023 Creatinine [Mass/Vol] 1.11 mg/dL 0.55-1.02 [facility] Comment on above: The validity of the calculated GFR & GFRAA in patients over 70 years has not been determined. Clinical correlation is essential. Serum or plasma urea nitroge n measurement (mass/volume)Ordered By: ED PROVIDER on 10-05-2023 Urea nitrogen [Mass/Vol] 23 mg/dL 7-18 [facility] Thin prep Papanicolaou smear with manual screeningOrdered By: ED PROVIDER on 10-05-2023 Thin prep Papanicolaou smear with manual screening 5 5-15 [facility] Absolute lymphocyte countOrd ered By: Daron Benton on 08-21-2023 Lymphocytes Auto (Unsp spec) [#/Vol] 1.45 10*3/uL 0.83-4.51 [facility] Basophil percentageOrdered B y: Daron Benton on 08-21-2023 Basophil percentage 86 mg/dL 74-106 [facility] Basophil percentage 7.3 g/dL 6.4-8.2 [facility] Basophil percentage 0.30 mg/dL 0.20-1.00 [facility] Basophil percentage 139 mmol/L 136-145 [facility] Basophil percentage 4.7 mmol/L 3.5-5.1 [facility] Basophil percentage 108 mmol/L 98-107 [facility] Basophils (Bld) [#/Vol] 7.3 10*3/uL 4.4-11.0 [facility] Basophils (Bld) [#/Vol] 5.0 10*3/uL 2.0-7.7 [facility] Basophils/100 WBC (Bld) 0.7 % 0-1 [facility] Basophils/100 WBC (Bld) 68.4 % 47-70 [facility] Basophils/100 WBC (Bld) 3.1 % 0-5 [facility] Bilirubin [Mass/Vol] 0.30 mg/dL 0.20-1.00 [facility] Comment on above: For patients on eltr ombopag therapy, use of Dimension [place] TBIL is not recommended. Chloride [Moles/Vol] 108 mmol/L 98-107 [facility] Eosinophils/100 WBC (Bld) 3.1 % 0-5 [facility] Glucose [Mass/Vol] 86 mg/dL 74-106 [facility] Neutrophils (Bld) [#/Vol] 5.0 10*3/uL 2.0-7.7 [facility] Neutrophils/100 WBC (Bld) 68.4 % 47-70 [facility] Potassium [Moles/Vol] 4.7 mmol/L 3.5-5.1 [facility] Protein [Mass/Vol] 7.3 g/dL 6.4-8.2 [facility] Sodium [Moles/Vol] 139 mmol/L 136-145 [facility] WBC (Bld) [#/Vol] 7.3 10*3/uL 4.4-11.0 [facility] Blood erythrocytes count (nu mber/volume)Ordered By: Daron Benton on 08-21-2023 RBC (Bld) [#/Vol] 4.99 10*6/uL 4.2-5.4 [facility] Blood hemoglobin measurement (mass/volume)Ordered By: Daron Benton on 08-21-2023 Hemoglobin (Bld) [Mass/Vol] 14.5 g/dL 12.0-15.0 [facility] Blood lymphocytes/100 leukoc ytesOrdered By: Daron Benton on 08-21-2023 Lymphocytes/100 WBC (Bld) 19.8 % 19-41 [facility] Blood monocytes/100 leukocyt esOrdered By: Daron Benton on 08-21-2023 Monocytes/100 WBC (Bld) 7.5 % 0-10 [facility] Blood platelet mean volumeOr dered By: Daron Benton on 08-21-2023 Platelet mean volume (Bld) [Entitic vol] 10.7 fL 6.2-12.0 [facility] Determination of erythrocyte mean corpuscular volume (MCV)Ordered By: Daron Benton on 08-21-2023 MCV (RBC) [Entitic vol] 91.6 fL 81-99 [facility] Hematocrit Auto (Bld) [Volum e fraction]Ordered By: Daron Benton on 08-21-2023 Hematocrit (Bld) [Volume fraction] 45.7 % 37-47 [facility] Laboratory - Chemistry and C hemistry - challengeOrdered By: Daron Benton on 08-21-2023 ALP [Catalytic activity/Vol] 122 U/L 45-117 [facility] ALT [Catalytic activity/Vol] 26 U/L 13-56 [facility] CO2 [Moles/Vol] 28.0 mmol/L 21.0-32.0 [facility] Globulin (S) [Mass/Vol] 3.6 g/dL 2.2-4.2 [facility] Urea nitrogen/Creatinine [Mass ratio] 22.2 mg/mg 10-20 [facility] Laboratory - Hematology and Cell countsOrdered By: Daron Benton on 08-21-2023 Erythrocyte distribution width (RBC) [Entitic vol] 46.4 fL 35.1-43.9 [facility] Erythrocyte distribution width (RBC) [Ratio] 13.8 % 11.6-14.6 [facility] Immature granulocytes/100 WBC (Bld) 0.500 % 0.0-0.9 [facility] Comment on above: IG% - Immature Granu locytes (promyelocytes, myelocytes and metamyelocytes) > 1% indicates that a LEFT SHIFT is Present. MCH (RBC) [Entitic mass] 29.1 pg 27.0-32.0 [facility] Nucleated RBC/100 WBC (Bld) [Ratio] 0 % 0-5 [facility] MCHC Auto (RBC) [Mass/Vol]Or dered By: Daron Benton on 08-21-2023 MCHC (RBC) [Mass/Vol] 31.7 g/dL 32-36 [facility] No Panel InformationOrdered By: Daron Benton on 08-21-2023 Estimated GFR (MDRD) Amer 65 mL/min >60 [facility] Comment on above: GFR Calc Estimated GFR (MDRD) Non-Af Amer 53 mL/min >60 [facility] Comment on above: Non- GFR Calc Thyroid Stimulating Hormone (TSH) 2.00 uIU/mL 0.358-3.74 [facility] 29.1 pg 27.0-32.0 [facility] 13.8 % 11.6-14.6 [facility] 46.4 fl 35.1-43.9 [facility] 0.500 % 0.0-0.9 [facility] 0 % 0-5 [facility] 53 mL/min >60 [facility] 65 mL/min >60 [facility] 22.2 RATIO 10-20 [facility] 3.6 g/dL 2.2-4.2 [facility] 122 U/L 45-117 [facility] 26 U/L 13-56 [facility] 28.0 mmol/L 21.0-32.0 [facility] 2.00 uIU/mL 0.358-3.74 [facility] Platelets bldOrdered By: Nila Benton on 08-21-2023 Platelets (Bld) [#/Vol] 184 10*3/uL 150-450 [facility] Serum or plasma albumin stefania urement (mass/volume)Ordered By: Daron Benton on 08-21-2023 Albumin [Mass/Vol] 3.7 g/dL 3.2-5.0 [facility] Serum or plasma albumin/glob ulin mass ratioOrdered By: Daron Benton on 08-21-2023 Albumin/Globulin [Mass ratio] 1.0 {ratio} 0.9-2.4 [facility] Serum or plasma calcium stefania urement (mass/volume)Ordered By: Daron Benton on 08-21-2023 Calcium [Mass/Vol] 9.2 mg/dL 8.5-10.1 [facility] Serum or plasma creatinine m easurement (mass/volume)Ordered By: Daron Benton on 08-21-2023 Creatinine [Mass/Vol] 1.08 mg/dL 0.55-1.02 [facility] Comment on above: The validity of the calculated GFR & GFRAA in patients over 70 years has not been determined. Clinical correlation is essential. Serum or plasma urea nitroge n measurement (mass/volume)Ordered By: Daron Benton on 08-21-2023 Urea nitrogen [Mass/Vol] 24 mg/dL 7-18 [facility] Thin prep Papanicolaou smear with manual screeningOrdered By: Daron Benton on 08-21-2023 Thin prep Papanicolaou smear with manual screening 18 U/L 15-37 [facility] Thin prep Papanicolaou smear with manual screening 3 5-15 [facility] Basophil percentageOrdered B y: Dr. Benton on 04-26-2023 Bilirubin [Mass/Vol] 0.30 mg/dL 0.20-1.00 [facility] Comment on above: For patients on eltr ombopag therapy, use of Dimension [place] TBIL is not recommended. Chloride [Moles/Vol] 109 mmol/L 98-107 [facility] Glucose [Mass/Vol] 95 mg/dL 74-106 [facility] Potassium [Moles/Vol] 4.6 mmol/L 3.5-5.1 [facility] Protein [Mass/Vol] 7.1 g/dL 6.4-8.2 [facility] Sodium [Moles/Vol] 138 mmol/L 136-145 [facility] INR in Blood by Coagulation assayOrdered By: Dr. Benton on 04-26-2023 INR Coag (Bld) [Relative time] 0.9 {INR} [facility] Laboratory - Chemistry and C hemistry - challengeOrdered By: Dr. Benton on 04-26-2023 ALP [Catalytic activity/Vol] 109 U/L 45-117 [facility] ALT [Catalytic activity/Vol] 26 U/L 13-56 [facility] CO2 [Moles/Vol] 27.0 mmol/L 21.0-32.0 [facility] Globulin (S) [Mass/Vol] 3.6 g/dL 2.2-4.2 [facility] Urea nitrogen/Creatinine [Mass ratio] 26.9 mg/mg 10-20 [facility] Laboratory - CoagulationOrde red By: Dr. Benton on 04-26-2023 PT Coag (PPP) [Time] 12.5 s 11.7-14.9 [facility] No Panel InformationOrdered By: Dr. Benton on 04-26-2023 Estimated GFR (MDRD) Amer 73 mL/min >60 [facility] Comment on above: GFR Calc Estimated GFR (MDRD) Non-Af Amer 61 mL/min >60 [facility] Comment on above: Non- GFR Calc Serum or plasma albumin stefania urement (mass/volume)Ordered By: Dr. Benton on 04-26-2023 Albumin [Mass/Vol] 3.5 g/dL 3.2-5.0 [facility] Serum or plasma albumin/glob ulin mass ratioOrdered By: Dr. Benton on 04-26-2023 Albumin/Globulin [Mass ratio] 1.0 {ratio} 0.9-2.4 [facility] Serum or plasma calcium stefania urement (mass/volume)Ordered By: Dr. Benton on 04-26-2023 Calcium [Mass/Vol] 9.5 mg/dL 8.5-10.1 [facility] Serum or plasma creatinine m easurement (mass/volume)Ordered By: Dr. Benton on 04-26-2023 Creatinine [Mass/Vol] 0.97 mg/dL 0.55-1.02 [facility] Comment on above: The validity of the calculated GFR & GFRAA in patients over 70 years has not been determined. Clinical correlation is essential. Serum or plasma transthyreti n measurement (mass/volume)Ordered By: Dr. Benton on 04-26-2023 Prealbumin [Mass/Vol] 19.6 mg/dL 20.0-40.0 [facility] Serum or plasma urea nitroge n measurement (mass/volume)Ordered By: Dr. Benton on 04-26-2023 Urea nitrogen [Mass/Vol] 26 mg/dL 7-18 [facility] Thin prep Papanicolaou smear with manual screeningOrdered By: Dr. Benton on 04-26-2023 Thin prep Papanicolaou smear with manual screening 14 U/L 15-37 [facility] Thin prep Papanicolaou smear with manual screening 2 5-15 [facility] Absolute lymphocyte countOrd ered By: Dr. Garcia on 04-08-2023 Lymphocytes Auto (Unsp spec) [#/Vol] 1.45 10*3/uL 0.83-4.51 [facility] Basophil percentageOrdered B y: Dr. Garcia on 04-08-2023 Basophils/100 WBC (Bld) 0.7 % 0-1 [facility] Chloride [Moles/Vol] 105 mmol/L 98-107 [facility] Eosinophils/100 WBC (Bld) 1.5 % 0-5 [facility] Glucose [Mass/Vol] 96 mg/dL 74-106 [facility] Neutrophils (Bld) [#/Vol] 5.3 10*3/uL 2.0-7.7 [facility] Neutrophils/100 WBC (Bld) 70.5 % 47-70 [facility] Potassium [Moles/Vol] 3.8 mmol/L 3.5-5.1 [facility] Sodium [Moles/Vol] 141 mmol/L 136-145 [facility] WBC (Bld) [#/Vol] 7.6 10*3/uL 4.4-11.0 [facility] Blood erythrocytes count (nu mber/volume)Ordered By: Dr. Garcia on 04-08-2023 RBC (Bld) [#/Vol] 5.14 10*6/uL 4.2-5.4 [facility] Blood hemoglobin measurement (mass/volume)Ordered By: Dr. Garcia on 04-08-2023 Hemoglobin (Bld) [Mass/Vol] 15.1 g/dL 12.0-15.0 [facility] Blood lymphocytes/100 leukoc ytesOrdered By: Dr. Garcia on 04-08-2023 Lymphocytes/100 WBC (Bld) 19.2 % 19-41 [facility] Blood monocytes/100 leukocyt esOrdered By: Dr. Garcia on 04-08-2023 Monocytes/100 WBC (Bld) 7.7 % 0-10 [facility] Blood platelet mean volumeOr dered By: Dr. Garcia on 04-08-2023 Platelet mean volume (Bld) [Entitic vol] 10.2 fL 6.2-12.0 [facility] Determination of erythrocyte mean corpuscular volume (MCV)Ordered By: Dr. Garcia on 04-08-2023 MCV (RBC) [Entitic vol] 89.1 fL 81-99 [facility] Hematocrit Auto (Bld) [Volum e fraction]Ordered By: Dr. Garcia on 04-08-2023 Hematocrit (Bld) [Volume fraction] 45.8 % 37-47 [facility] Laboratory - Chemistry and C hemistry - challengeOrdered By: Dr. Garcia on 04-08-2023 CO2 [Moles/Vol] 29.0 mmol/L 21.0-32.0 [facility] Urea nitrogen/Creatinine [Mass ratio] 24.0 mg/mg 10-20 [facility] Laboratory - Hematology and Cell countsOrdered By: Dr. Garcia on 04-08-2023 Erythrocyte distribution width (RBC) [Entitic vol] 46.6 fL 35.1-43.9 [facility] Erythrocyte distribution width (RBC) [Ratio] 14.4 % 11.6-14.6 [facility] Immature granulocytes/100 WBC (Bld) 0.400 % 0.0-0.9 [facility] Comment on above: IG% - Immature Granu locytes (promyelocytes, myelocytes and metamyelocytes) > 1% indicates that a LEFT SHIFT is Present. MCH (RBC) [Entitic mass] 29.4 pg 27.0-32.0 [facility] Nucleated RBC/100 WBC (Bld) [Ratio] 0 % 0-5 [facility] MCHC Auto (RBC) [Mass/Vol]Or dered By: Dr. Garcia on 04-08-2023 MCHC (RBC) [Mass/Vol] 33.0 g/dL 32-36 [facility] No Panel InformationOrdered By: Dr. Garcai on 04-08-2023 Troponin I High Sensitivity 9 pg/mL 3.0-54.0 [facility] Comment on above: Please Note: New Kim t Units and Gender Specific Reference Ranges. For more information see Policy Stat Procedure [place] High Sensitivity Troponin (TNIH) and attachments. Estimated Creatinine Clearance Calc 50.23 ml/min [facility] Estimated GFR (MDRD) Amer 83 mL/min >60 [facility] Comment on above: GFR Calc Estimated GFR (MDRD) Non-Af Amer 68 mL/min >60 [facility] Comment on above: Non- GFR Calc Platelets bldOrdered By: Dr. Garcia on 04-08-2023 Platelets (Bld) [#/Vol] 171 10*3/uL 150-450 [facility] Serum or plasma calcium stefania urement (mass/volume)Ordered By: Dr. Garcia on 04-08-2023 Calcium [Mass/Vol] 9.6 mg/dL 8.5-10.1 [facility] Serum or plasma creatinine m easurement (mass/volume)Ordered By: Dr. Garcia on 04-08-2023 Creatinine [Mass/Vol] 0.88 mg/dL 0.55-1.02 [facility] Comment on above: The validity of the calculated GFR & GFRAA in patients over 70 years has not been determined. Clinical correlation is essential. Serum or plasma urea nitroge n measurement (mass/volume)Ordered By: Dr. Garcia on 04-08-2023 Urea nitrogen [Mass/Vol] 21 mg/dL 7-18 [facility] Thin prep Papanicolaou smear with manual screeningOrdered By: Dr. Garcia on 04-08-2023 Thin prep Papanicolaou smear with manual screening 7 5-15 [facility] Culture, urineOrdered By: Dr Hero Campbell on 04-01-2023 Bacteria identified Cx Nom (U) Positive [facility] Basophil percentageOrdered B y: Dr. Campbell on 03-31-2023 Basophil percentage 0 SEEN /hpf 0-5 [facility] Bilirubin Test strip Ql (U)O rdered By: Dr. Campbell on 03-31-2023 Bilirubin Ql (U) Negative Negative [facility] Ketones Test strip Ql (U)Ord ered By: Dr. Campbell on 03-31-2023 Ketones Ql (U) Negative Negative [facility] Mucus LM Ql (Urine sed)Order ed By: Dr. Campbell on 03-31-2023 Mucus Ql (Urine sed) 0 SEEN /hpf [facility] Nitrite Test strip Ql (U)Ord ered By: Dr. Campbell on 03-31-2023 Nitrite Ql (U) Negative Negative [facility] Protein Test strip Ql (U)Ord ered By: Dr. Campbell on 03-31-2023 Protein Ql (U) Negative Negative [facility] Squamous epithelial cells de tection in urine sediment by light microscopyOrdered By: Dr. Campbell on 03-31-2023 Epithelial cells.squamous LM Ql (Urine sed) 5-10 SEEN /hpf 5-10 [facility] Urine blood detectionOrdered By: Dr. Campbell on 03-31-2023 RBC Ql (U) Negative Negative [facility] RBC Ql (U) 0 SEEN /hpf 0-5 [facility] Urine clarityOrdered By: Dr. Campbell on 03-31-2023 Clarity (U) Clear Clear [facility] Urine color determinationOrd ered By: Dr. Campbell on 03-31-2023 Color (U) Yellow Yellow [facility] Urine glucose detectionOrder ed By: Dr. Campbell on 03-31-2023 Glucose Ql (U) Normal mg/dl Normal [facility] Urine leukocyte esterase det ection by dipstickOrdered By: Dr. Campbell on 03-31-2023 Leukocyte esterase Test strip Ql (U) Negative Negative [facility] Urine pHOrdered By: Dr. Cummings n 03-31-2023 pH (U) 6.0 [pH] 5.0 - 8.0 [facility] Urine sediment bacteria coun t by microscopy (number/high power field)Ordered By: Dr. Campbell on 03-31-2023 Bacteria LM.HPF (Urine sed) [#/Area] 1 /[HPF] None Seen [facility] Urine specific gravity measu rementOrdered By: Dr. Campbell on 03-31-2023 Specific gravity (U) [Rel density] 1.010 1.002-1.03 0 [facility] Urobilinogen Auto test strip Ql (U)Ordered By: Dr. Campbell on 03-31-2023 Urobilinogen Ql (U) Normal mg/dl Normal [facility] LABORATORYOrdered By: SYSTEM SYSTEM on [...] spec) [#/Vol] 1.75 10*3/uL 0.83-4.51 [facility] Basophil percentageOrdered B y: Dr. Benton on 10-20-2022 Basophil percentage < 0.2 AI 0.0-0.9 [facility] Basophils/100 WBC (Bld) 1.0 % 0-1 [facility] Bilirubin [Mass/Vol] 0.70 mg/dL 0.20-1.00 [facility] Comment on above: For patients on eltr ombopag therapy, use of Dimension [place] TBIL is not recommended. Chloride [Moles/Vol] 107 mmol/L 98-107 [facility] Eosinophils/100 WBC (Bld) 1.8 % 0-5 [facility] Glucose [Mass/Vol] 89 mg/dL 74-106 [facility] Neutrophils (Bld) [#/Vol] 5.8 10*3/uL 2.0-7.7 [facility] Neutrophils/100 WBC (Bld) 68.4 % 47-70 [facility] Potassium [Moles/Vol] 4.2 mmol/L 3.5-5.1 [facility] Protein [Mass/Vol] 7.0 g/dL 6.4-8.2 [facility] Sodium [Moles/Vol] 140 mmol/L 136-145 [facility] WBC (Bld) [#/Vol] 8.4 10*3/uL 4.4-11.0 [facility] Blood erythrocytes count (nu mber/volume)Ordered By: Dr. Benton on 10-20-2022 RBC (Bld) [#/Vol] 5.49 10*6/uL 4.2-5.4 [facility] Blood hemoglobin measurement (mass/volume)Ordered By: Dr. Benton on 10-20-2022 Hemoglobin (Bld) [Mass/Vol] 15.6 g/dL 12.0-15.0 [facility] Blood lymphocytes/100 leukoc ytesOrdered By: Dr. Benton on 10-20-2022 Lymphocytes/100 WBC (Bld) 20.8 % 19-41 [facility] Blood monocytes/100 leukocyt esOrdered By: Dr. Benton on 10-20-2022 Monocytes/100 WBC (Bld) 7.5 % 0-10 [facility] Blood platelet mean volumeOr dered By: Dr. Benton on 10-20-2022 Platelet mean volume (Bld) [Entitic vol] 10.1 fL 6.2-12.0 [facility] Determination of erythrocyte mean corpuscular volume (MCV)Ordered By: Dr. Benton on 10-20-2022 MCV (RBC) [Entitic vol] 87.8 fL 81-99 [facility] Erythrocyte sedimentation ra teOrdered By: Dr. Benton on 10-20-2022 ESR (Bld) [Velocity] 19 mm/h 0-30 [facility] Hematocrit Auto (Bld) [Volum e fraction]Ordered By: Dr. Benton on 10-20-2022 Hematocrit (Bld) [Volume fraction] 48.2 % 37-47 [facility] Laboratory - Chemistry and C hemistry - challengeOrdered By: Dr. Benton on 10-20-2022 ALP [Catalytic activity/Vol] 126 U/L 45-117 [facility] ALT [Catalytic activity/Vol] 18 U/L 13-56 [facility] Amylase [Catalytic activity/Vol] 22 U/L 5-55 [facility] CO2 [Moles/Vol] 28.0 mmol/L 21.0-32.0 [facility] Free T4 [Mass/Vol] 1.41 ng/dL 0.76-1.46 [facility] Globulin (S) [Mass/Vol] 3.1 g/dL 2.2-4.2 [facility] Lipase [Catalytic activity/Vol] 88 U/L 73-393 [facility] Urea nitrogen/Creatinine [Mass ratio] 20.8 mg/mg 10-20 [facility] Laboratory - Hematology and Cell countsOrdered By: Dr. Benton on 10-20-2022 Erythrocyte distribution width (RBC) [Entitic vol] 47.9 fL 35.1-43.9 [facility] Erythrocyte distribution width (RBC) [Ratio] 14.9 % 11.6-14.6 [facility] Immature granulocytes/100 WBC (Bld) 0.500 % 0.0-0.9 [facility] Comment on above: IG% - Immature Granu locytes (promyelocytes, myelocytes and metamyelocytes) > 1% indicates that a LEFT SHIFT is Present. MCH (RBC) [Entitic mass] 28.4 pg 27.0-32.0 [facility] Nucleated RBC/100 WBC (Bld) [Ratio] 0 % 0-5 [facility] MCHC Auto (RBC) [Mass/Vol]Or dered By: Dr. Benton on 10-20-2022 MCHC (RBC) [Mass/Vol] 32.4 g/dL 32-36 [facility] No Panel InformationOrdered By: Dr. Benton on 10-20-2022 Centromere B Antibody <0.2 AI 0.0-0.9 [facility] Estimated GFR (MDRD) Amer 96 mL/min >60 [facility] Comment on above: GFR Calc Estimated GFR (MDRD) Non-Af Amer 79 mL/min >60 [facility] Comment on above: Non- GFR Calc E MERCHANT Antibody <0.2 AI 0.0-0.9 [facility] Thyroid Stimulating Hormone (TSH) 1.66 uIU/mL 0.358-3.74 [facility] Vitamin D 25-Hydroxy 59.8 ng/mL [facility] Comment on above: Vitamin D 25(OH) Sta tus Range Deficiency <20 ng/mL (50nmol/L) Insufficiency 20 - 30 ng/mL (50 - 75 nmol/L) Sufficiency 30 - 100 ng/mL (75 - 250 nmol/L) Toxicity >100 ng/mL (>250 nmol/L) Platelets bldOrdered By: Dr. Benton on 10-20-2022 Platelets (Bld) [#/Vol] 197 10*3/uL 150-450 [facility] Serum DNA double strand anti body assay (units/volume)Ordered By: Dr. Benton on 10-20-2022 DNA double strand Ab Qn (S) [IU]/mL 0-9 [facility] Comment on above: Negative <5 Equivoca l 5 - 9 Positive >9 Serum Myrtle-1 antibody assay (u nits/volume)Ordered By: Dr. Benton on 10-20-2022 Myrtle-1 extractable nuclear Ab Qn (S) <0.2 AI 0.0-0.9 [facility] Serum Scl-70 extractable nuc lear antibody assay (units/volume)Ordered By: Dr. Benton on 10-20-2022 SCL-70 extractable nuclear Ab Qn (S) 0.2 AI 0.0-0.9 [facility] Serum Benton extractable nucl ear antibody detectionOrdered By: Dr. Benton on 10-20-2022 Esperanza extractable nuclear Ab Ql (S) <0.2 AI 0.0-0.9 [facility] Serum or plasma C reactive p rotein measurement (mass/volume)Ordered By: Dr. Benton on 10-20-2022 CRP [Mass/Vol] mg/L 0.0-3.0 [facility] Comment on above: C-Reactive Protein ( CRP) provides useful information for thediagnosis, therapy and monitoring of inflammatory processesand associated diseases. For the evaluation of Relative Riskfor Cardiovascular Disease, a High Sensitivity CRP (HSCRP)should be ordered. Serum or plasma albumin stefania urement (mass/volume)Ordered By: Dr. Benton on 10-20-2022 Albumin [Mass/Vol] 3.9 g/dL 3.2-5.0 [facility] Serum or plasma albumin/glob ulin mass ratioOrdered By: Dr. Benton on 10-20-2022 Albumin/Globulin [Mass ratio] 1.3 {ratio} 0.9-2.4 [facility] Serum or plasma calcium stefania urement (mass/volume)Ordered By: Dr. Benton on 10-20-2022 Calcium [Mass/Vol] 9.2 mg/dL 8.5-10.1 [facility] Serum or plasma creatinine m easurement (mass/volume)Ordered By: Dr. Benton on 10-20-2022 Creatinine [Mass/Vol] 0.77 mg/dL 0.55-1.02 [facility] Comment on above: The validity of the calculated GFR & GFRAA in patients over 70 years has not been determined. Clinical correlation is essential. Serum or plasma urea nitroge n measurement (mass/volume)Ordered By: Dr. Benton on 10-20-2022 Urea nitrogen [Mass/Vol] 16 mg/dL 7-18 [facility] Serum rheumatoid factor dete ctionOrdered By: Dr. Benton on 10-20-2022 Rheumatoid factor Ql (S) < 10.0 IU/mL <15 [facility] Thin prep Papanicolaou smear with manual screeningOrdered By: Dr. Benton on 10-20-2022 Thin prep Papanicolaou smear with manual screening 14 U/L 15-37 [facility] Thin prep Papanicolaou smear with manual screening 5 5-15 [facility] No Panel Informationon 05-02 Estimated GFR (MDRD) Amer 77 mL/min >60 [facility] Work Phone: Comment on above: GFR Calc Estimated GFR (MDRD) Non-Af Amer 63 mL/min >60 [facility] Work Phone: Comment on above: Non- GFR Calc Serum or plasma creatinine m easurement (mass/volume)on 05-02-2022 Creatinine [Mass/Vol] 0.94 mg/dL 0.55-1.02 [facility] Work Phone: Comment on above: The validity of the calculated GFR & GFRAA in patients over 70 years has not been determined. Clinical correlation is essential. Serum or plasma urea nitroge n measurement (mass/volume)on 05-02-2022 Urea nitrogen [Mass/Vol] 11 mg/dL 7-18 [facility] Work Phone: Absolute lymphocyte counton 02-20-2022 Lymphocytes Auto (Unsp spec) [#/Vol] 1.50 10*3/uL 0.83-4.51 [facility] Work Phone: Basophil percentageon 2021 Basophils/100 WBC (Bld) 0.3 % 0-1 [facility] Work Phone: Bilirubin [Mass/Vol] 0.20 mg/dL 0.20-1.00 [facility] Work Phone: Comment on above: For patients on eltr ombopag therapy, use of Dimension [place] TBIL is not recommended. Chloride [Moles/Vol] 107 mmol/L 98-107 [facility] Work Phone: Eosinophils/100 WBC (Bld) 0.8 % 0-5 [facility] Work Phone: Glucose [Mass/Vol] 97 mg/dL 74-106 [facility] Work Phone: Neutrophils (Bld) [#/Vol] 4.0 10*3/uL 2.0-7.7 [facility] Work Phone: Neutrophils/100 WBC (Bld) 65.5 % 47-70 [facility] Work Phone: Potassium [Moles/Vol] 3.5 mmol/L 3.5-5.1 [facility] Work Phone: Protein [Mass/Vol] 6.5 g/dL 6.4-8.2 [facility] Work Phone: Sodium [Moles/Vol] 142 mmol/L 136-145 [facility]: WBC (Bld) [#/Vol] 6.2 10*3/uL 4.4-11.0 [facility] Work Phone: Blood erythrocytes count (nu mber/volume)on 02-20-2022 RBC (Bld) [#/Vol] 4.80 10*6/uL 4.2-5.4 [facility] Work Phone: Blood hemoglobin measurement (mass/volume)on 02-20-2022 Hemoglobin (Bld) [Mass/Vol] 14.1 g/dL 12.0-15.0 [facility] Work Phone: Blood lymphocytes/100 leukoc yteson 02-20-2022 Lymphocytes/100 WBC (Bld) 24.4 % 19-41 [facility] Work Phone: Blood monocytes/100 leukocyt eson 02-20-2022 Monocytes/100 WBC (Bld) 8.3 % 0-10 [facility] Work Phone: Blood platelet mean volumeon 02-20-2022 Platelet mean volume (Bld) [Entitic vol] 10.0 fL 6.2-12.0 [facility] Work Phone: Determination of erythrocyte mean corpuscular volume (MCV)on 02-20-2022 MCV (RBC) [Entitic vol] 90.6 fL 81-99 [facility] Work Phone: Direct bilirubinon 2 Bilirubin.direct [Mass/Vol] 0.10 mg/dL 0.00-0.30 [facility] Work Phone: Hematocrit Auto (Bld) [Volum e fraction]on 04-04-2022 Hematocrit (Bld) [Volume fraction] 43.5 % 37-47 [facility] Work Phone: INR in Blood by Coagulation assayon 02-20-2022 INR Coag (Bld) [Relative time] 1.0 {INR} [facility] Work Phone: Laboratory - Chemistry and C hemistry - challengeon 02-20-2022 ALP [Catalytic activity/Vol] 97 U/L 45-117 [facility] Work Phone: ALT [Catalytic activity/Vol] 18 U/L 13-56 [facility] Work Phone: CO2 [Moles/Vol] 30.0 mmol/L 21.0-32.0 [facility] Work Phone: Globulin (S) [Mass/Vol] 3.2 g/dL 2.2-4.2 [facility] Work Phone: Lipase [Catalytic activity/Vol] 38 U/L 73-393 [facility] Work Phone: Urea nitrogen/Creatinine [Mass ratio] 17.8 mg/mg 10-20 [facility] Work Phone: Laboratory - Coagulationon 0 02-20-2022 PT Coag (PPP) [Time] 12.3 s 11.7-14.9 [facility] Work Phone: Laboratory - Hematology and Cell countson 02-20-2022 Erythrocyte distribution width (RBC) [Entitic vol] 45.6 fL 35.1-43.9 [facility] Work Phone: Erythrocyte distribution width (RBC) [Ratio] 13.7 % 11.6-14.6 [facility] Work Phone: Immature granulocytes/100 WBC (Bld) 0.700 % 0.0-0.9 [facility] Work Phone: Comment on above: IG% - Immature Granu locytes (promyelocytes, myelocytes and metamyelocytes) > 1% indicates that a LEFT SHIFT is Present. MCH (RBC) [Entitic mass] 29.4 pg 27.0-32.0 [facility] Work Phone: Nucleated RBC/100 WBC (Bld) [Ratio] 0 % 0-5 [facility] Work Phone: MCHC Auto (RBC) [Mass/Vol]on 02-20-2022 MCHC (RBC) [Mass/Vol] 32.4 g/dL 32-36 [facility] Work Phone: No Panel Informationon 02-20 Estimated Creatinine Clearance Calc 59.57 ml/min [facility] Work Phone: Estimated GFR (MDRD) Amer 86 mL/min >60 [facility] Work Phone: Comment on above: GFR Calc Estimated GFR (MDRD) Non-Af Amer 71 mL/min >60 [facility] Work Phone: Comment on above: Non- GFR Calc Troponin I High Sensitivity 4 pg/mL 3.0-54.0 [facility] Work Phone: Comment on above: Please Note: New Kim t Units and Gender Specific Reference Ranges. For more information see Policy Stat Procedure [place] High Sensitivity Troponin (TNIH) and attachments. Platelets bldon 02-20-2022 Platelets (Bld) [#/Vol] 171 10*3/uL 150-450 [facility] Work Phone: Serum or plasma albumin stefania urement (mass/volume)on 02-20-2022 Albumin [Mass/Vol] 3.3 g/dL 3.2-5.0 [facility] Work Phone: Serum or plasma calcium stefania urement (mass/volume)on 02-20-2022 Calcium [Mass/Vol] 8.7 mg/dL 8.5-10.1 [facility] Work Phone: Serum or plasma creatinine m easurement (mass/volume)on 02-20-2022 Creatinine [Mass/Vol] 0.84 mg/dL 0.55-1.02 [facility] Work Phone: Comment on above: The validity of the calculated GFR & GFRAA in patients over 70 years has not been determined. Clinical correlation is essential. Serum or plasma urea nitroge n measurement (mass/volume)on 02-20-2022 Urea nitrogen [Mass/Vol] 15 mg/dL 7-18 [facility] Work Phone: Thin prep Papanicolaou smear with manual screeningon 02-20-2022 Thin prep Papanicolaou smear with manual screening 11 U/L 15-37 [facility] Work Phone: Thin prep Papanicolaou smear with manual screening 5 5-15 [facility] Work Phone: Absolute lymphocyte counton 02-18-2022 Lymphocytes Auto (Unsp spec) [#/Vol] 1.64 10*3/uL 0.83-4.51 [facility] Work Phone: Basophil percentageon 2021 Basophils/100 WBC (Bld) 0.9 % 0-1 [facility] Work Phone: [phone] Chloride [Moles/Vol] 108 mmol/L 98-107 [facility] Work Phone: Eosinophils/100 WBC (Bld) 3.1 % 0-5 [facility] Work Phone: [phone] Glucose [Mass/Vol] 112 mg/dL 74-106 [facility] Work Phone: Comment on above: Fasting Glucose resu lt from 100 to 125 mg/dL suggests IMPAIRED HOMEOSTASIS per A.D.A. criteria. Neutrophils (Bld) [#/Vol] 3.8 10*3/uL 2.0-7.7 [facility] Work Phone: [phone] Neutrophils/100 WBC (Bld) 58.7 % 47-70 [facility] Work Phone: Potassium [Moles/Vol] 3.6 mmol/L 3.5-5.1 [facility] Work Phone: [phone] Sodium [Moles/Vol] 141 mmol/L 136-145 [facility] Work Phone: WBC (Bld) [#/Vol] 6.4 10*3/uL 4.4-11.0 [facility] Work Phone: Blood erythrocytes count (nu mber/volume)on 02-18-2022 RBC (Bld) [#/Vol] 5.18 10*6/uL 4.2-5.4 [facility] Work Phone: Blood hemoglobin measurement (mass/volume)on 02-18-2022 Hemoglobin (Bld) [Mass/Vol] 15.0 g/dL 12.0-15.0 [facility] Work Phone: Blood lymphocytes/100 leukoc yteson 02-18-2022 Lymphocytes/100 WBC (Bld) 25.5 % 19-41 [facility] Work Phone: Blood monocytes/100 leukocyt eson 02-18-2022 Monocytes/100 WBC (Bld) 11.2 % 0-10 [facility] Work Phone: Blood platelet mean volumeon 02-18-2022 Platelet mean volume (Bld) [Entitic vol] 9.8 fL 6.2-12.0 [facility] Work Phone: Determination of erythrocyte mean corpuscular volume (MCV)on 02-18-2022 MCV (RBC) [Entitic vol] 88.2 fL 81-99 [facility] Work Phone: Hematocrit Auto (Bld) [Volum e fraction]on 02-18-2022 Hematocrit (Bld) [Volume fraction] 45.7 % 37-47 [facility] Work Phone: INR in Blood by Coagulation assayon 02-18-2022 INR Coag (Bld) [Relative time] 1.0 {INR} [facility] Work Phone: Laboratory - Chemistry and C hemistry - challengeon 02-18-2022 CO2 [Moles/Vol] 29.0 mmol/L 21.0-32.0 [facility] Work Phone: Magnesium [Mass/Vol] 2.1 mg/dL 1.6-2.6 [facility] Work Phone: Urea nitrogen/Creatinine [Mass ratio] 13.9 mg/mg 10-20 [facility] Work Phone: Laboratory - Coagulationon 0 02-18-2022 aPTT Coag (Bld) [Time] 28.9 s 24.1-36.2 [facility] Work Phone: PT Coag (PPP) [Time] 12.6 s 11.7-14.9 [facility] Work Phone: Laboratory - Hematology and Cell countson 02-18-2022 Erythrocyte distribution width (RBC) [Entitic vol] 43.7 fL 35.1-43.9 [facility] Work Phone: Erythrocyte distribution width (RBC) [Ratio] 13.5 % 11.6-14.6 [facility] Work Phone: Immature granulocytes/100 WBC (Bld) 0.600 % 0.0-0.9 [facility] Work Phone: Comment on above: IG% - Immature Granu locytes (promyelocytes, myelocytes and metamyelocytes) > 1% indicates that a LEFT SHIFT is Present. MCH (RBC) [Entitic mass] 29.0 pg 27.0-32.0 [facility] Work Phone: Nucleated RBC/100 WBC (Bld) [Ratio] 0 % 0-5 [facility] Work Phone: MCHC Auto (RBC) [Mass/Vol]on 02-18-2022 MCHC (RBC) [Mass/Vol] 32.8 g/dL 32-36 [facility] Work Phone: No Panel Informationon 02-18 Troponin I High Sensitivity 5 pg/mL 3.0-54.0 [facility] Work Phone: Comment on above: Please Note: New Kim t Units and Gender Specific Reference Ranges. For more information see Policy Stat Procedure [place] High Sensitivity Troponin (TNIH) and attachments. Estimated Creatinine Clearance Calc 51.11 ml/min [facility] Work Phone: Estimated GFR (MDRD) Amer 93 mL/min >60 [facility] Work Phone: Comment on above: GFR Calc Estimated GFR (MDRD) Non-Af Amer 77 mL/min >60 [facility] Work Phone: Comment on above: Non- GFR Calc Platelets bldon 02-18-2022 Platelets (Bld) [#/Vol] 207 10*3/uL 150-450 [facility] Work Phone: Serum or plasma calcium stefania urement (mass/volume)on 02-18-2022 Calcium [Mass/Vol] 8.8 mg/dL 8.5-10.1 [facility] Work Phone: Serum or plasma creatinine m easurement (mass/volume)on 02-18-2022 Creatinine [Mass/Vol] 0.79 mg/dL 0.55-1.02 [facility] Work Phone: Comment on above: The validity of the calculated GFR & GFRAA in patients over 70 years has not been determined. Clinical correlation is essential. Serum or plasma urea nitroge n measurement (mass/volume)on 02-18-2022 Urea nitrogen [Mass/Vol] 11 mg/dL 7-18 [facility] Work Phone: Thin prep Papanicolaou smear with manual screeningon 02-18-2022 Thin prep Papanicolaou smear with manual screening 4 5-15 [facility] Work Phone: Basophil percentageon 2021 Basophil percentage 4.4 mg/dL 2.5-4.9 [facility] Work Phone: Chloride [Moles/Vol] 106 mmol/L 98-107 [facility] Work Phone: Glucose [Mass/Vol] 92 mg/dL 74-106 [facility] Work Phone: Potassium [Moles/Vol] 3.9 mmol/L 3.5-5.1 [facility] Work Phone: Sodium [Moles/Vol] 141 mmol/L 136-145 [facility] Work Phone: WBC (Bld) [#/Vol] 7.7 10*3/uL 4.4-11.0 [facility] Work Phone: Blood erythrocytes count (nu mber/volume)on 01-18-2022 RBC (Bld) [#/Vol] 5.55 10*6/uL 4.2-5.4 [facility] Work Phone: Blood hemoglobin measurement (mass/volume)on 01-18-2022 Hemoglobin (Bld) [Mass/Vol] 16.9 g/dL 12.0-15.0 [facility] Work Phone: Blood platelet mean volumeon 01-18-2022 Platelet mean volume (Bld) [Entitic vol] 9.7 fL 6.2-12.0 [facility] Work Phone: Determination of erythrocyte mean corpuscular volume (MCV)on 01-18-2022 MCV (RBC) [Entitic vol] 90.5 fL 81-99 [facility] Work Phone: Hematocrit Auto (Bld) [Volum e fraction]on 01-18-2022 Hematocrit (Bld) [Volume fraction] 50.2 % 37-47 [facility] Work Phone: Laboratory - Chemistry and C hemistry - challengeon 01-18-2022 CO2 [Moles/Vol] 31.0 mmol/L 21.0-32.0 [facility] Work Phone: Urea nitrogen/Creatinine [Mass ratio] 18.6 mg/mg 10-20 [facility] Work Phone: Laboratory - Hematology and Cell countson 01-18-2022 Erythrocyte distribution width (RBC) [Entitic vol] 46.6 fL 35.1-43.9 [facility] Work Phone: Erythrocyte distribution width (RBC) [Ratio] 13.8 % 11.6-14.6 [facility] Work Phone: MCH (RBC) [Entitic mass] 30.5 pg 27.0-32.0 [facility] Work Phone: MCHC Auto (RBC) [Mass/Vol]on 01-18-2022 MCHC (RBC) [Mass/Vol] 33.7 g/dL 32-36 [facility] Work Phone: No Panel Informationon 01-18 Estimated Creatinine Clearance Calc 50.37 ml/min [facility] Work Phone: Estimated GFR (MDRD) Amer 74 mL/min >60 [facility] Work Phone: Comment on above: GFR Calc Estimated GFR (MDRD) Non-Af Amer 61 mL/min >60 [facility] Work Phone: Comment on above: Non- GFR Calc Platelets bldon 01-18-2022 Platelets (Bld) [#/Vol] 233 10*3/uL 150-450 [facility] Work Phone: Serum or plasma albumin stefania urement (mass/volume)on 01-18-2022 Albumin [Mass/Vol] 3.6 g/dL 3.2-5.0 [facility] Work Phone: Serum or plasma calcium stefania urement (mass/volume)on 01-18-2022 Calcium [Mass/Vol] 9.2 mg/dL 8.5-10.1 [facility] Work Phone: Serum or plasma creatinine m easurement (mass/volume)on 01-18-2022 Creatinine [Mass/Vol] 0.97 mg/dL 0.55-1.02 [facility] Work Phone: Comment on above: The validity of the calculated GFR & GFRAA in patients over 70 years has not been determined. Clinical correlation is essential. Serum or plasma urea nitroge n measurement (mass/volume)on 01-18-2022 Urea nitrogen [Mass/Vol] 18 mg/dL 7-18 [facility] Work Phone: Basophil percentageon 2020 Creatinine [Mass/Vol] 0.8 mg/dL 0.55-1.02 [facility] Work Phone: No Panel Informationon 11-17 Bedside Estimated GFR (eGFR) > 60.0000 mL/min >60 [facility] Work Phone: MRI BRAIN WO/W IVCONon [...] Improvement: None. New Enhancing Lesions: None T2 [place] of Disease: Mild. Parenchymal Volume Loss: None. [...] by greater than or equal to 2mm). Direct Service Professional: PSCB Transcribe Date/Time: Apr 12 2021 2:27P Dictated by : MELIZA MOMIN MD This examination was interpreted and the report reviewed and electronically signed by: MELIZA MOMIN MD on Apr 12 2021 2:33PM EST [id number] Normal [facility] CNOVon 02-09-2021 CNOV Office Visit (UCWSTR ) ----- CHRISTINANGÉLICA SNOW ([id number]) 1955 F Date Time Provider Department 02/09/21 [...] Comments: Heartburn PREDNISONE 12/15/2008 Comments: Destroyed bone. [id number] REDUCTASE INHIBIT*04/27/2011 5 - Intolerance TRICOR (FENOFIBRATE [...] by MELI GORE MD on 02/09/21 Normal [facility] XR Chest PA and Lateralon IMPRESSION: Trace linear atelectasis at the left base. Direct Service Professional: PSCB Transcribe Date/Time: Nov 25 2020 3:18P Dictated by : JOHANA DEUTSCH MD This examination was interpreted and the report reviewed and electronically signed by: JOHANA DEUTSCH MD on Nov 25 2020 3:19PM [facility] DIVISION OF RADIOLOGY * * [...] the thoracic spine. DIVISION OF RADIOLOGY Provider, [facility] - 11/25/2020 * * *Final Report* [...] Trace linear atelectasis at the left base. Direct Service Professional: PSCB Transcribe Date/Time: Nov 25 2020 3:18P Dictated by : JOHANA DEUTSCH MD This examination was interpreted and the report reviewed and electronically signed by: JOHANA DEUTSCH MD on Nov 25 2020 3:19PM EST [facility] Radiology Study observation (narrative) Deangelo Almonte XR Chest PA and LateralOrder ed By: Cc Provider on 11-25-2020 [facility] PROGRESSon 12-22-2017 PROGRESS HNO ID: [id number] thor: Yogesh Quinn Naeem: (none)Author Type: PhysicianType: [...] visit, with more than50% of the total htbz-qp-vmkl time of the visit in counseling /coordination of care. Normal [facility] CNOVon 12-21-2017 CNOV Office Visit (AGMIL) CHRISTINANGÉLICA SNOW ([id number]) 1955 FDate Time Provider Department12/21/17 10:30 AM [...] be primarily managing these problems here in [place]. At this point in timeI tell her [...] with more than 50% of the total dqds-qw-rxsnhaow of the visit in counseling / coordination of care.Referring Provider: ZHANE PARRA [[id number]]Allergies As of Date: 12/21/2017 Noted Allergy ReactionANTIHISTAMINES 04/28/2004 Comments: messes her head upASA (SALICYLATES) 12/04/2008CODEINE 04/28/2004 Comments: nauseaFENTANYL 02/19/2012 14 - Other: See Comments Comments: Sweating/ FlushingMORPHINE 04/28/2004 Comments: nausea and vomitingPLAVIX (CLOPIDOGREL BISULFATE) 12/18/2011 14 - Other: See Comments Comments: HeartburnPREDNISONE 12/15/2008 Comments: Destroyed bone.PEORQWT-[id number] REDUCTASE INHIBIT*04/27/2011 5 - IntoleranceTRICOR (FENOFIBRATE MICRONIZED) 04/27/2011 5 - IntoleranceDate Reviewed: 12/21/2017Reviewed by: Mell Medina LPN - Fully AssessedReason for Visit: Peripheral Vascular Disease (PVD) [3028] Cmt: Angélica is here for follo up [...] vascular occlusive disease (HCC) [I7*Letter TextEncounter Number: [id number] Status:Closed by YOGESH ONOFRE MD on 12/22/17 [facility] Vital Signs Date Time Vital Sign Value Performing Clinician Brandon galvez 08-06-2025 04:21-0400 Body temperature 98 [degF] Dr. Daron Benton MD Work Phone: [facility] 08-06-2025 04:21-0400 Diastolic blood pressure 71 mm[Hg] Dr. Daron Benton MD Work Phone: [facility] 08-06-2025 04:21-0400 Heart rate 55 /min Dr. Daron Benton MD Work Phone: [facility] 08-06-2025 04:21-0400 Respiratory rate 12 /min Dr. Daron Benton MD Work Phone: [facility] 08-06-2025 04:21-0400 SaO2% (BldA) [Mass fraction] 94 % Dr. Daron Benton MD Work Phone: 6(853)979-092249 [place] [address] 08-06-2025 04:21-0400 Systolic blood pressure 165 mm[Hg] Dr. Daron Benton MD Work Phone: 8(600)536-942304 [place] [address] 08-06-2025 01:30-0400 Inhaled oxygen flow rate 3 L/min Dr. Daron Benton MD Work Phone: 7(379)957-932804 [place] [address] 08-05-2025 20:54-0400 Body height 165.[address] Daron Benton MD Work Phone: 8(258)700-804404 [place] [address] 08-05-2025 20:54-0400 Body mass index (BMI) [Ratio] 19.1 kg/m2 Dr. Daron Benton MD Work Phone: 3(023)941-490504 [place] [address] 08-05-2025 20:54-0400 Body weight 52.[address] Daron Benton MD Work Phone: 0(027)967-610504 [place] [address] 08-05-2025 07:47-0400 Body mass index (BMI) [Ratio] 18.4 kg/m2 Dr. Daron Benton MD Work Phone: [facility] 08-05-2025 07:47-0400 Body weight 50.[address] Daron Benton MD Work Phone: 4(243)151-527904 [place] [address] 08-05-2025 07:47-0400 Diastolic blood pressure 71 mm[Hg] Dr. Daron Benton MD Work Phone: [facility] 08-05-2025 07:47-0400 Heart rate 48 /min Dr. Daron Benton MD Work Phone: [facility] 08-05-2025 07:47-0400 Respiratory rate 18 /min Dr. Daron Benton MD Work Phone: [facility] 08-05-2025 07:47-0400 SaO2% (BldA) [Mass fraction] 100 % Dr. Daron Benton MD Work Phone: 8(921)709-325104 [place] [address] 08-05-2025 07:47-0400 Systolic blood pressure 112 mm[Hg] Dr. Daron Benton MD Work Phone: 0(675)415-642204 [place] [address] 08-01-2025 00:36-0400 Body temperature 97.8 [degF] Dr. Daron Benton MD Work Phone: 8(899)897-093304 [place] [address] 08-01-2025 00:36-0400 Diastolic blood pressure 72 mm[Hg] Dr. Daron Benton MD Work Phone: 6(179)772-959704 [place] [address] 08-01-2025 00:36-0400 Heart rate 54 /min Dr. Daron Benton MD Work Phone: 6(942)777-086804 [place] [address] 08-01-2025 00:36-0400 Respiratory rate 14 /min Dr. Daron Benton MD Work Phone: 2(746)777-195804 [place] [address] 08-01-2025 00:36-0400 SaO2% (BldA) [Mass fraction] 95 % Dr. Daron Benton MD Work Phone: 4(747)994-088104 [place] [address] 08-01-2025 00:36-0400 Systolic blood pressure 135 mm[Hg] Dr. Daron Benton MD Work Phone: 5(707)692-996449 [place] [address] 07-31-2025 21:02-0400 Body height 165.[address] Daron Benton MD Work Phone: 3(334)094-608604 [place] [address] 07-31-2025 21:02-0400 Body mass index (BMI) [Ratio] 18.1 kg/m2 Dr. Daron Benton MD Work Phone: 6(121)808-519704 [place] [address] 07-31-2025 21:02-0400 Body weight 49.[address] Daron Benton MD Work Phone: [facility] 07-23-2025 12:31-0400 Body height 167.6 cm Lizz Lynn EMBOSSER APPRENTICE - GAS ENGINE REPAIRER Work Phone: [facility] 07-23-2025 12:31-0400 Body mass index (BMI) [Ratio] 17.11 kg/m2 Lizz Lynn EMBOSSER APPRENTICE - GAS ENGINE REPAIRER Work Phone: [facility] 07-23-2025 12:31-0400 Body weight 48.08 kg Lizz Lynn EMBOSSER APPRENTICE - GAS ENGINE REPAIRER Work Phone: [facility] 07-23-2025 12:31-0400 Diastolic blood pressure 64 mm[Hg] Lizz Lynn EMBOSSER APPRENTICE - GAS ENGINE REPAIRER Work Phone: [facility] 07-23-2025 12:31-0400 Heart rate 47 /min Lizz Lynn EMBOSSER APPRENTICE - GAS ENGINE REPAIRER Work Phone: [facility] 07-23-2025 12:31-0400 Systolic blood pressure 103 mm[Hg] Lizz Lynn EMBOSSER APPRENTICE - GAS ENGINE REPAIRER Work Phone: [facility] 07-23-2025 00:50-0400 Body temperature 98.2 [degF] Dr. Daron Benton MD Work Phone: [facility] 07-23-2025 00:50-0400 Diastolic blood pressure 74 mm[Hg] Dr. Daron Benton MD Work Phone: [facility] 07-23-2025 00:50-0400 Heart rate 70 /min Dr. Daron Benton MD Work Phone: [facility] 07-23-2025 00:50-0400 Respiratory rate 18 /min Dr. Daron Benton MD Work Phone: [facility] 07-23-2025 00:50-0400 SaO2% (BldA) [Mass fraction] 97 % Dr. Daron Benton MD Work Phone: [facility] 07-23-2025 00:50-0400 Systolic blood pressure 135 mm[Hg] Dr. Daron Benton MD Work Phone: 9(018)396-132904 [place] [address] 07-22-2025 21:56-0400 Body height 165.[address] Daron Benton MD Work Phone: 0(224)852-303704 [place] [address] 07-22-2025 21:56-0400 Body mass index (BMI) [Ratio] 18.1 kg/m2 Dr. Daron Benton MD Work Phone: 4(490)253-083004 [place] [address] 07-22-2025 21:56-0400 Body weight 49.[address] Daron Benton MD Work Phone: 1(088)717-502304 [place] [address] 07-05-2025 23:28-0400 Body temperature 98.6 [degF] Dr. Daron Benton MD Work Phone: 1(982)083-517704 [place] [address] 07-05-2025 23:28-0400 Diastolic blood pressure 99 mm[Hg] Dr. Daorn Benton MD Work Phone: 4(991)948-945504 [place] [address] 07-05-2025 23:28-0400 Heart rate 76 /min Dr. Daron Benton MD Work Phone: 0(260)630-381804 [place] [address] 07-05-2025 23:28-0400 Respiratory rate 16 /min Dr. Daron Benton MD Work Phone: 5(293)655-442504 [place] [address] 07-05-2025 23:28-0400 SaO2% (BldA) [Mass fraction] 100 % Dr. Daron Benton MD Work Phone: 7(774)441-232904 [place] [address] 07-05-2025 23:28-0400 Systolic blood pressure 148 mm[Hg] Dr. Daron Benton MD Work Phone: 0(201)237-597104 [place] [address] 07-05-2025 20:54-0400 Body mass index (BMI) [Ratio] 18 kg/m2 Dr. Daron Benton MD Work Phone: 9(193)719-839704 [place] [address] 07-05-2025 20:54-0400 Body weight 49.[address] Daron Benton MD Work Phone: 0(086)261-682104 [place] [address] 07-05-2025 20:39-0400 Body height 165.[address] Daron Benton MD Work Phone: [facility] 06-09-2025 18:11-0400 Diastolic blood pressure 97 mm[Hg] Dr. Daron Benton MD Work Phone: 0(072)586-716804 [place] [address] 06-09-2025 18:11-0400 Systolic blood pressure 194 mm[Hg] Dr. Daron Benton MD Work Phone: 2(920)714-759204 [place] [address] 06-09-2025 16:33-0400 Body temperature 98 [degF] Dr. Daron Benton MD Work Phone: 2(353)034-445304 [place] [address] 06-09-2025 16:33-0400 Heart rate 70 /min Dr. Daron Benton MD Work Phone: 8(654)219-237404 [place] [address] 06-09-2025 16:33-0400 Respiratory rate 14 /min Dr. Daron Benton MD Work Phone: 6(582)321-455604 [place] [address] 06-09-2025 16:33-0400 SaO2% (BldA) [Mass fraction] 99 % Dr. Daron Benton MD Work Phone: 2(705)201-974504 [place] [address] 06-09-2025 08:15-0400 Inhaled oxygen flow rate 2 L/min Dr. Daron Benton MD Work Phone: 4(441)681-958604 [place] [address] 06-09-2025 05:43-0400 Body mass index (BMI) [Ratio] 18.1 kg/m2 Dr. Daron Benton MD Work Phone: 4(659)375-368704 [place] [address] 06-09-2025 05:43-0400 Body weight 49.[address] Daron Benton MD Work Phone: 3(769)263-620504 [place] [address] 06-07-2025 12:32-0400 Body height 165.[address] Daron Benton MD Work Phone: 3(489)712-176004 [place] [address] 06-03-2025 08:00-0400 Body temperature 96.8 [degF] Dr. Daron Benton MD Work Phone: 6(429)848-783204 [place] [address] 06-03-2025 08:00-0400 Diastolic blood pressure 62 mm[Hg] Dr. Daron Benton MD Work Phone: 6(296)984-213349 [place] [address] 06-03-2025 08:00-0400 Heart rate 82 /min Dr. Daron Benton MD Work Phone: 9(698)008-147904 [place] [address] 06-03-2025 08:00-0400 Respiratory rate 16 /min Dr. Daron Benton MD Work Phone: 7(358)314-547004 [place] [address] 06-03-2025 08:00-0400 SaO2% (BldA) [Mass fraction] 100 % Dr. Daron Benton MD Work Phone: 8(465)560-763804 [place] [address] 06-03-2025 08:00-0400 Systolic blood pressure 103 mm[Hg] Dr. Daron Benton MD Work Phone: 8(459)724-795304 [place] [address] 06-03-2025 07:37-0400 Inhaled oxygen flow rate 3 L/min Dr. Daron Benton MD Work Phone: 6(788)597-621904 [place] [address] 06-03-2025 02:30-0400 Body height 167.[address] Daron Benton MD Work Phone: 7(876)996-834004 [place] [address] 06-03-2025 02:30-0400 Body mass index (BMI) [Ratio] 17.7 kg/m2 Dr. Daron Benton MD Work Phone: 4(085)280-844404 [place] [address] 06-03-2025 02:30-0400 Body weight 49.[address] Daron Benton MD Work Phone: 5(694)342-633104 [place] [address] 05-19-2025 23:37-0400 Body temperature 97.8 [degF] Dr. Daron Benton MD Work Phone: 7(329)601-492104 [place] [address] 05-19-2025 23:37-0400 Diastolic blood pressure 61 mm[Hg] Dr. Daron Benton MD Work Phone: 3(482)219-326404 [place] [address] 05-19-2025 23:37-0400 Heart rate 75 /min Dr. Daron Benton MD Work Phone: 7(583)061-076704 [place] [address] 05-19-2025 23:37-0400 Respiratory rate 16 /min Dr. Daron Benton MD Work Phone: 6(438)727-989704 [place] [address] 05-19-2025 23:37-0400 SaO2% (BldA) [Mass fraction] 96 % Dr. Daron Benton MD Work Phone: 7(132)256-954804 [place] [address] 05-19-2025 23:37-0400 Systolic blood pressure 138 mm[Hg] Dr. Daron Benton MD Work Phone: 2(677)923-367304 [place] [address] 05-19-2025 22:26-0400 Body mass index (BMI) [Ratio] 17.8 kg/m2 Dr. Daron Benton MD Work Phone: 4(453)686-250504 [place] [address] 05-19-2025 22:26-0400 Body weight [address] Daron Benton MD Work Phone: 9(477)019-481404 [place] [address] 05-19-2025 20:46-0400 Body height 167.[address] Daron Benton MD Work Phone: 3(500)076-661204 [place] [address] 05-06-2025 14:44-0400 Body height 165.[address] Daron Benton MD Work Phone: 4(774)598-118704 [place] [address] 05-06-2025 14:44-0400 Body mass index (BMI) [Ratio] 18.3 kg/m2 Dr. Daron Benton MD Work Phone: 5(153)453-778704 [place] [address] 05-06-2025 14:44-0400 Body temperature 97.5 [degF] Dr. Daron Benton MD Work Phone: 3(341)368-346904 [place] [address] 05-06-2025 14:44-0400 Body weight 49.[address] Daron Benton MD Work Phone: 7(744)899-034004 [place] [address] 05-06-2025 14:44-0400 Diastolic blood pressure 79 mm[Hg] Dr. Daron Benton MD Work Phone: 0(845)065-878404 [place] [address] 05-06-2025 14:44-0400 Heart rate 74 /min Dr. Daron Benton MD Work Phone: 1(446)543-386604 [place] [address] 05-06-2025 14:44-0400 Respiratory rate 16 /min Dr. Daron Benton MD Work Phone: 0(169)371-982504 [place] [address] 05-06-2025 14:44-0400 SaO2% (BldA) [Mass fraction] 98 % Dr. Daron Benton MD Work Phone: 8(658)926-175549 [place] [address] 05-06-2025 14:44-0400 Systolic blood pressure 163 mm[Hg] Dr. Daron Benton MD Work Phone: 6(554)923-232804 [place] [address] 04-22-2025 14:14-0400 Body temperature 97.7 [degF] Dr. Daron Benton MD Work Phone: 1(881)477-379904 [place] [address] 04-22-2025 14:14-0400 Diastolic blood pressure 74 mm[Hg] Dr. Daron Benton MD Work Phone: 6(321)597-695904 [place] [address] 04-22-2025 14:14-0400 Heart rate 124 /min Dr. Daron Benton MD Work Phone: 9(814)875-697404 [place] [address] 04-22-2025 14:14-0400 Respiratory rate 18 /min Dr. Daron Benton MD Work Phone: 9(664)152-826904 [place] [address] 04-22-2025 14:14-0400 SaO2% (BldA) [Mass fraction] 94 % Dr. Daron Benton MD Work Phone: 7(053)099-341604 [place] [address] 04-22-2025 14:14-0400 Systolic blood pressure 101 mm[Hg] Dr. Daron Benton MD Work Phone: 3(583)030-280104 [place] [address] 04-21-2025 15:30-0400 Body height 165.[address] Daron Benton MD Work Phone: 3(967)748-827004 [place] [address] 04-21-2025 15:30-0400 Body mass index (BMI) [Ratio] 16.7 kg/m2 Dr. Daron Benton MD Work Phone: 0(957)612-282704 [place] [address] 04-21-2025 15:30-0400 Body weight 45.[address] Daron Benton MD Work Phone: 7(472)034-859004 [place] [address] 04-18-2025 21:23-0400 Body temperature 98.9 [degF] Dr. Daron Benton MD Work Phone: 7(353)808-063749 [place] [address] 04-18-2025 21:23-0400 Diastolic blood pressure 79 mm[Hg] Dr. Daron Benton MD Work Phone: 2(873)170-202249 [place] [address] 04-18-2025 21:23-0400 Heart rate 62 /min Dr. Daron Benton MD Work Phone: [facility] 04-18-2025 21:23-0400 Respiratory rate 21 /min Dr. Daron Benton MD Work Phone: 1(652)115-708249 [place] [address] 04-18-2025 21:23-0400 SaO2% (BldA) [Mass fraction] 100 % Dr. Daron Benton MD Work Phone: 3(545)781-570004 [place] [address] 04-18-2025 21:23-0400 Systolic blood pressure 141 mm[Hg] Dr. Daron Benton MD Work Phone: 6(850)314-594004 [place] [address] 04-18-2025 18:17-0400 Body height 165.[address] Daron Benton MD Work Phone: 6(446)192-132604 [place] [address] 04-18-2025 18:17-0400 Body mass index (BMI) [Ratio] 16.9 kg/m2 Dr. Daron Benton MD Work Phone: 5(258)784-224804 [place] [address] 04-18-2025 18:17-0400 Body weight 46.[address] Daron Benton MD Work Phone: 3(078)708-509504 [place] [address] 04-18-2025 01:13-0400 Body temperature 97.7 [degF] Dr. Daron Benton MD Work Phone: 1(110)362-172204 [place] [address] 04-18-2025 01:13-0400 Diastolic blood pressure 68 mm[Hg] Dr. Daron Benton MD Work Phone: 6(380)679-234204 [place] [address] 04-18-2025 01:13-0400 Heart rate 68 /min Dr. Daron Benton MD Work Phone: 4(056)904-957704 [place] [address] 04-18-2025 01:13-0400 Respiratory rate 16 /min Dr. Daron Benton MD Work Phone: 0(691)319-569705 [address] 04-18-2025 01:13-0400 SaO2% (BldA) [Mass fraction] 100 % Dr. Daron Benton MD Work Phone: 3(413)867-100149 [place] [address] 04-18-2025 01:13-0400 Systolic blood pressure 130 mm[Hg] Dr. Daron Benton MD Work Phone: 7(857)278-821604 [place] [address] 04-17-2025 22:17-0400 Body height 165.[address] Daron Benton MD Work Phone: 6(228)735-827304 [place] [address] 04-17-2025 22:17-0400 Body mass index (BMI) [Ratio] 16.9 kg/m2 Dr. Daron Benton MD Work Phone: 7(238)478-216504 [place] [address] 04-17-2025 22:17-0400 Body weight 46.[address] Daron Benton MD Work Phone: 5(055)666-170604 [place] [address] 04-11-2025 16:10-0400 Body temperature 97.6 [degF] Dr. Daron Benton MD Work Phone: 5(236)255-856904 [place] [address] 04-11-2025 16:10-0400 Diastolic blood pressure 67 mm[Hg] Dr. Daron Benton MD Work Phone: 3(426)072-119504 [place] [address] 04-11-2025 16:10-0400 Heart rate 56 /min Dr. Daron Benton MD Work Phone: 6(477)589-176504 [place] [address] 04-11-2025 16:10-0400 Respiratory rate 18 /min Dr. Daron Benton MD Work Phone: 6(013)330-753404 [place] [address] 04-11-2025 16:10-0400 SaO2% (BldA) [Mass fraction] 100 % Dr. Daron Benton MD Work Phone: 6(900)616-881804 [place] [address] 04-11-2025 16:10-0400 Systolic blood pressure 124 mm[Hg] Dr. Daron Benton MD Work Phone: 1(650)531-067804 [place] [address] 04-11-2025 13:17-0400 Body mass index (BMI) [Ratio] 19.1 kg/m2 Dr. Daron Benton MD Work Phone: 7(470)868-533104 [address] [place] [place] [address] 04-11-2025 13:17-0400 Body weight 52.[address] Daron Benton MD Work Phone: [facility] 04-08-2025 15:20-0400 Diastolic blood pressure 88 mm[Hg] Lizz Lynn EMBOSSER APPRENTICE - GAS ENGINE REPAIRER Work Phone: [facility] 04-08-2025 15:20-0400 Heart rate 70 /min Lizz Lynn EMBOSSER APPRENTICE - GAS ENGINE REPAIRER Work Phone: [facility] 04-08-2025 15:20-0400 Systolic blood pressure 151 mm[Hg] Lizz Lynn EMBOSSER APPRENTICE - GAS ENGINE REPAIRER Work Phone: [facility] 04-08-2025 14:15-0400 Body height 167.6 cm Lizz Lynn EMBOSSER APPRENTICE - GAS ENGINE REPAIRER Work Phone: [facility] 04-08-2025 14:15-0400 Body mass index (BMI) [Ratio] 17.53 kg/m2 Lizz Lynn EMBOSSER APPRENTICE - GAS ENGINE REPAIRER Work Phone: [facility] 04-08-2025 14:15-0400 Body weight 49.26 kg Lizz Lynn EMBOSSER APPRENTICE - GAS ENGINE REPAIRER Work Phone: [facility] 04-02-2025 22:25-0400 Body temperature 98.1 [degF] Dr. Daron Benton MD Work Phone: [facility] 04-02-2025 22:25-0400 Diastolic blood pressure 79 mm[Hg] Dr. Daron Benton MD Work Phone: [facility] 04-02-2025 22:25-0400 Heart rate 73 /min Dr. Daron Benton MD Work Phone: [facility] 04-02-2025 22:25-0400 Respiratory rate 18 /min Dr. Daron Benton MD Work Phone: [facility] 04-02-2025 22:25-0400 SaO2% (BldA) [Mass fraction] 100 % Dr. Daron Benton MD Work Phone: [facility] 04-02-2025 22:25-0400 Systolic blood pressure 105 mm[Hg] Dr. Daron Benton MD Work Phone: [facility] 04-02-2025 19:21-0400 Body height 165.[address] Daron Benton MD Work Phone: [facility] 04-02-2025 19:21-0400 Body mass index (BMI) [Ratio] 18.8 kg/m2 Dr. Daron Benton MD Work Phone: [facility] 04-02-2025 19:21-0400 Body weight 51.[address] Daron Benton MD Work Phone: [facility] 03-04-2025 10:31-0400 Body height 167.6 cm Lizz Lynn EMBOSSER APPRENTICE - GAS ENGINE REPAIRER Work Phone: [facility] 03-04-2025 10:31-0400 Body mass index (BMI) [Ratio] 18.34 kg/m2 Lizz Lynn EMBOSSER APPRENTICE - GAS ENGINE REPAIRER Work Phone: [facility] 03-04-2025 10:31-0400 Body weight 51.53 kg Lizz Lynn EMBOSSER APPRENTICE - GAS ENGINE REPAIRER Work Phone: [facility] 03-04-2025 10:31-0400 Diastolic blood pressure 75 mm[Hg] Lizz Lynn EMBOSSER APPRENTICE - GAS ENGINE REPAIRER Work Phone: [facility] 03-04-2025 10:31-0400 Heart rate 64 /min Lizz Lynn EMBOSSER APPRENTICE - GAS ENGINE REPAIRER Work Phone: [facility] 03-04-2025 10:31-0400 Systolic blood pressure 139 mm[Hg] Lizz Lynn EMBOSSER APPRENTICE - GAS ENGINE REPAIRER Work Phone: [facility] 02-20-2025 09:08-0400 Body mass index (BMI) [Ratio] 19.8 kg/m2 Dr. Daron Benton MD Work Phone: [facility] 02-20-2025 09:08-0400 Body weight 53.[address] Daron Benton MD Work Phone: [facility] 02-20-2025 09:08-0400 Diastolic blood pressure 74 mm[Hg] Dr. Daron Benton MD Work Phone: [facility] 02-20-2025 09:08-0400 Heart rate 50 /min Dr. Daron Benton MD Work Phone: 1(017)760-189849 [place] [address] 02-20-2025 09:08-0400 Respiratory rate 18 /min Dr. Daron Benton MD Work Phone: [facility] 02-20-2025 09:08-0400 SaO2% (BldA) [Mass fraction] 100 % Dr. Daron Benton MD Work Phone: 2(668)543-188905 [address] 02-20-2025 09:08-0400 Systolic blood pressure 121 mm[Hg] Dr. Daron Benton MD Work Phone: 7(948)953-696304 [place] [address] 01-13-2025 16:01-0500 Heart rate 59 /min Dr. Daron Benton MD Work Phone: 3(185)227-408905 [address] 01-13-2025 16:01-0500 Respiratory rate 16 /min Dr. Daron Benton MD Work Phone: 8(005)356-688505 [address] 01-13-2025 14:34-0500 Body temperature 98 [degF] Dr. Daron Benton MD Work Phone: 7(668)069-940704 [place] [address] 01-13-2025 14:34-0500 Diastolic blood pressure 95 mm[Hg] Dr. Daron Benton MD Work Phone: [facility] 01-13-2025 14:34-0500 Inhaled oxygen flow rate 2 L/min Dr. Daron Benton MD Work Phone: 8(326)035-617405 [address] 01-13-2025 14:34-0500 SaO2% (BldA) [Mass fraction] 94 % Dr. Daron Benton MD Work Phone: 1(052)423-162349 [place] [address] 01-13-2025 14:34-0500 Systolic blood pressure 111 mm[Hg] Dr. Daron Benton MD Work Phone: 1(094)651-890304 [place] [address] 01-13-2025 04:47-0500 Body mass index (BMI) [Ratio] 18.9 kg/m2 Dr. Daron Benton MD Work Phone: 4(615)574-149804 [place] [address] 01-13-2025 04:47-0500 Body weight 51.[address] Daron Benton MD Work Phone: 5(509)470-971504 [place] [address] 12-24-2024 10:03-0500 Body mass index (BMI) [Ratio] 19.4 kg/m2 Dr. Daron Benton MD Work Phone: 4(470)141-327104 [place] [address] 12-24-2024 10:03-0500 Body temperature 96.7 [degF] Dr. Daron Benton MD Work Phone: 2(825)316-442704 [place] [address] 12-24-2024 10:03-0500 Body weight 53.[address] Daron Benton MD Work Phone: 5(212)373-950104 [place] [address] 12-24-2024 10:03-0500 Diastolic blood pressure 77 mm[Hg] Dr. Daron Benton MD Work Phone: 3(117)065-295304 [place] [address] 12-24-2024 10:03-0500 Heart rate 69 /min Dr. Daron Benton MD Work Phone: 8(571)750-440504 [place] [address] 12-24-2024 10:03-0500 Respiratory rate 18 /min Dr. Daron Benton MD Work Phone: 0(311)836-131204 [place] [address] 12-24-2024 10:03-0500 SaO2% (BldA) [Mass fraction] 95 % Dr. Daron Benton MD Work Phone: 6(740)705-412305 [address] 12-24-2024 10:03-0500 Systolic blood pressure 132 mm[Hg] Dr. Daron Benton MD Work Phone: 5(803)036-285704 [place] [address] 12-19-2024 13:20-0500 Body mass index (BMI) [Ratio] 19.4 kg/m2 Dr. Daron Benton MD Work Phone: 2(103)995-374549 [place] [address] 12-19-2024 13:20-0500 Body weight 53.[address] Daron Benton MD Work Phone: [facility] 12-19-2024 13:20-0500 Diastolic blood pressure 77 mm[Hg] Dr. Daron Benton MD Work Phone: [facility] 12-19-2024 13:20-0500 Heart rate 67 /min Dr. Daron Benton MD Work Phone: 8(381)349-602149 [place] [address] 12-19-2024 13:20-0500 Respiratory rate 18 /min Dr. Daron Benton MD Work Phone: 5(572)432-911505 [address] 12-19-2024 13:20-0500 SaO2% (BldA) [Mass fraction] 96 % Dr. Daron Benton MD Work Phone: 1(013)228-902504 [place] [address] 12-19-2024 13:20-0500 Systolic blood pressure 124 mm[Hg] Dr. Daron Benton MD Work Phone: 2(340)609-360104 [place] [address] 12-17-2024 14:25-0500 Body temperature 97.8 [degF] Dr. Daron Benton MD Work Phone: 7(877)220-891304 [place] [address] 12-17-2024 14:25-0500 Diastolic blood pressure 94 mm[Hg] Dr. Daron Benton MD Work Phone: 9(603)634-956504 [place] [address] 12-17-2024 14:25-0500 Heart rate 65 /min Dr. Daron Benton MD Work Phone: 0(282)894-132749 [place] [address] 12-17-2024 14:25-0500 Respiratory rate 20 /min Dr. Daron Benton MD Work Phone: 1(886)874-694205 [address] 12-17-2024 14:25-0500 SaO2% (BldA) [Mass fraction] 95 % Dr. Daron Benton MD Work Phone: 7(847)966-047405 [address] 12-17-2024 14:25-0500 Systolic blood pressure 151 mm[Hg] Dr. Daron Benton MD Work Phone: 5(731)832-639905 [address] 12-17-2024 10:13-0500 Body mass index (BMI) [Ratio] 19.5 kg/m2 Dr. Daron Benton MD Work Phone: 9(550)707-379849 [place] [address] 12-17-2024 10:13-0500 Body weight 53.[address] Daron Benton MD Work Phone: 9(968)107-455804 [place] [address] 12-11-2024 13:50-0500 Body temperature 98 [degF] Dr. Daron Benton MD Work Phone: 4(681)296-578104 [place] [address] 12-11-2024 13:50-0500 Diastolic blood pressure 87 mm[Hg] Dr. Daron Benton MD Work Phone: 5(724)612-499304 [place] [address] 12-11-2024 13:50-0500 Heart rate 70 /min Dr. Daron Benton MD Work Phone: 4(214)170-847604 [place] [address] 12-11-2024 13:50-0500 Respiratory rate 16 /min Dr. Daron Benton MD Work Phone: 3(668)238-833104 [place] [address] 12-11-2024 13:50-0500 SaO2% (BldA) [Mass fraction] 96 % Dr. Daron Benton MD Work Phone: 4(902)368-732504 [place] [address] 12-11-2024 13:50-0500 Systolic blood pressure 139 mm[Hg] Dr. Daron Benton MD Work Phone: 5(803)651-016204 [place] [address] 12-10-2024 10:11-0500 Body weight 51.[address] Daron Benton MD Work Phone: 8(896)479-435704 [place] [address] 12-09-2024 18:00-0500 Inhaled oxygen flow rate 2 L/min Dr. Daron Benton MD Work Phone: 5(083)765-129404 [place] [address] 12-09-2024 14:59-0500 Body mass index (BMI) [Ratio] 18.8 kg/m2 Dr. Daron Benton MD Work Phone: 0(278)885-846204 [place] [address] 02-25-2024 17:00-0400 Body temperature 98.2 [degF] Dr. Daron Benton Work Phone: 5(117)389-360204 [place] [address] 02-25-2024 17:00-0400 Diastolic blood pressure 73 mm[Hg] Dr. Daron Benton Work Phone: 0(810)643-659804 [place] [address] 02-25-2024 17:00-0400 Heart rate 62 /min Dr. Daron Benton Work Phone: [facility] 02-25-2024 17:00-0400 Inhaled oxygen flow rate 2 L/min Dr. Daron Benton Work Phone: [facility] 02-25-2024 17:00-0400 Respiratory rate 16 /min Dr. Daron Benton Work Phone: [facility] 02-25-2024 17:00-0400 SaO2% (BldA) [Mass fraction] 98 % Dr. Daron Benton Work Phone: [facility] 02-25-2024 17:00-0400 Systolic blood pressure 136 mm[Hg] Dr. Daron Benton Work Phone: [facility] 02-24-2024 23:41-0400 Body height [address] Daron Benton Work Phone: [facility] 02-24-2024 23:41-0400 Body mass index (BMI) [Ratio] 19.8 kg/m2 Dr. Daron Benton Work Phone: [facility] 02-24-2024 23:41-0400 Body weight 55.[address] Daron Benton Work Phone: [facility] 02-19-2024 16:00-0400 Body temperature 97.5 [degF] Dr. Daron Benton Work Phone: [facility] 02-19-2024 16:00-0400 Diastolic blood pressure 71 mm[Hg] Dr. Daron Benton Work Phone: [facility] 02-19-2024 16:00-0400 Heart rate 68 /min Dr. Daron Benton Work Phone: [facility] 02-19-2024 16:00-0400 Respiratory rate 17 /min Dr. Daron Benton Work Phone: [facility] 02-19-2024 16:00-0400 SaO2% (BldA) [Mass fraction] 92 % Dr. Daron Benton Work Phone: [facility] 02-19-2024 16:00-0400 Systolic blood pressure 124 mm[Hg] Dr. Daron Benton Work Phone: [facility] 02-19-2024 10:52-0400 Body height 167.[address] Daron Benton Work Phone: [facility] 02-19-2024 10:52-0400 Body mass index (BMI) [Ratio] 21.8 kg/m2 Dr. Daron Benton Work Phone: [facility] 02-19-2024 10:52-0400 Body weight 61.[address] Daron Benton Work Phone: [facility] 01-18-2024 11:47-0500 Body temperature 97.7 [degF] Dr. Daron Benton Work Phone: [facility] 01-18-2024 11:47-0500 Diastolic blood pressure 70 mm[Hg] Dr. Daron Benton Work Phone: [facility] 01-18-2024 11:47-0500 Heart rate 62 /min Dr. Daron Benton Work Phone: [facility] 01-18-2024 11:47-0500 Respiratory rate 18 /min Dr. Daron Benton Work Phone: [facility] 01-18-2024 11:47-0500 SaO2% (BldA) [Mass fraction] 95 % Dr. Daron Benton Work Phone: [facility] 01-18-2024 11:47-0500 Systolic blood pressure 121 mm[Hg] Dr. Daron Benton Work Phone: [facility] 01-18-2024 10:23-0500 Body height 165.[address] Daron Benton Work Phone: [facility] 01-18-2024 10:23-0500 Body mass index (BMI) [Ratio] 20.4 kg/m2 Dr. Daron Benton Work Phone: [facility] 01-18-2024 10:23-0500 Body weight 55.[address] Daron Benton Work Phone: [facility] 01-11-2024 08:22-0500 Diastolic blood pressure 57 mm[Hg] Dr. Daron Benton Work Phone: [facility] 01-11-2024 08:22-0500 Systolic blood pressure 132 mm[Hg] Dr. Daron Benton Work Phone: [facility] 01-11-2024 08:13-0500 Body temperature 98.5 [degF] Dr. Daron Benton Work Phone: [facility] 01-11-2024 08:13-0500 Heart rate 61 /min Dr. Daron Benton Work Phone: [facility] 01-11-2024 08:13-0500 Respiratory rate 16 /min Dr. Daron Benton Work Phone: [facility] 01-11-2024 08:13-0500 SaO2% (BldA) [Mass fraction] 98 % Dr. Daron Benton Work Phone: [facility] 01-11-2024 06:51-0500 Inhaled oxygen flow rate 2 L/min Dr. Daron Benton Work Phone: [facility] 01-11-2024 02:14-0500 Body height 165.[address] Daron Benton Work Phone: [facility] 01-11-2024 02:14-0500 Body mass index (BMI) [Ratio] 20.1 kg/m2 Dr. Daron Benton Work Phone: [facility] 01-11-2024 02:14-0500 Body weight [address] Daron Benton Work Phone: [facility] 12-21-2023 12:53-0500 Body mass index (BMI) [Ratio] 20.5 kg/m2 Dr. Daron Benton Work Phone: [facility] 12-21-2023 12:53-0500 Body weight 55.[address] Daron Benton Work Phone: [facility] 12-21-2023 12:53-0500 Diastolic blood pressure 89 mm[Hg] Dr. Daron Benton Work Phone: [facility] 12-21-2023 12:53-0500 Heart rate 50 /min Dr. Daron Benton Work Phone: [facility] 12-21-2023 12:53-0500 Respiratory rate 18 /min Dr. Daron Benton Work Phone: [facility] 12-21-2023 12:53-0500 SaO2% (BldA) [Mass fraction] 100 % Dr. Daron Benton Work Phone: [facility] 12-21-2023 12:53-0500 Systolic blood pressure 193 mm[Hg] Dr. Daron Benton Work Phone: [facility] 12-14-2023 13:43-0500 Body mass index (BMI) [Ratio] 19.37 kg/m2 Lizz Lynn EMBOSSER APPRENTICE - GAS ENGINE REPAIRER Work Phone: [facility] 12-14-2023 13:43-0500 Body weight 54.43 kg Lizz Lynn EMBOSSER APPRENTICE - GAS ENGINE REPAIRER Work Phone: [facility] 12-14-2023 13:43-0500 Diastolic blood pressure 78 mm[Hg] Lizz Lynn EMBOSSER APPRENTICE - GAS ENGINE REPAIRER Work Phone: [facility] 12-14-2023 13:43-0500 Heart rate 66 /min Lizz Lynn EMBOSSER APPRENTICE - GAS ENGINE REPAIRER Work Phone: [facility] 12-14-2023 13:43-0500 Systolic blood pressure 186 mm[Hg] Lizz Lynn EMBOSSER APPRENTICE - GAS ENGINE REPAIRER Work Phone: [facility] 12-07-2023 14:27-0500 Body temperature 97.4 [degF] Dr. Daron Benton Work Phone: [facility] 12-07-2023 14:27-0500 Diastolic blood pressure 79 mm[Hg] Dr. Daron Benton Work Phone: [facility] 12-07-2023 14:27-0500 Heart rate 50 /min Dr. Daron Benton Work Phone: [facility] 12-07-2023 14:27-0500 Respiratory rate 12 /min Dr. Daron Benton Work Phone: [facility] 12-07-2023 14:27-0500 SaO2% (BldA) [Mass fraction] 98 % Dr. Daron Benton Work Phone: [facility] 12-07-2023 14:27-0500 Systolic blood pressure 140 mm[Hg] Dr. Daron Benton Work Phone: [facility] 12-06-2023 16:45-0500 Body height 165.[address] Daron Benton Work Phone: [facility] 12-06-2023 16:45-0500 Body weight [address] Daron Benton Work Phone: 9(783)655-744249 [place] [address] 12-04-2023 07:00-0500 Inhaled oxygen flow rate 1 L/min Dr. Daron Benton Work Phone: [facility] 12-02-2023 12:37-0500 Body mass index (BMI) [Ratio] 20.5 kg/m2 Dr. Daron Benton Work Phone: [facility] 12-02-2023 11:40-0500 Diastolic blood pressure 48 mm[Hg] Dr. Daron Benton Work Phone: [facility] 12-02-2023 11:40-0500 Heart rate 48 /min Dr. Daron Benton Work Phone: [facility] 12-02-2023 11:40-0500 Respiratory rate 15 /min Dr. Daron Benton Work Phone: [facility] 12-02-2023 11:40-0500 SaO2% (BldA) [Mass fraction] 94 % Dr. Daron Benton Work Phone: [facility] 12-02-2023 11:40-0500 Systolic blood pressure 176 mm[Hg] Dr. Daron Benton Work Phone: [facility] 12-02-2023 06:33-0500 Body height 165.[address] Daron Benton Work Phone: [facility] 12-02-2023 06:33-0500 Body mass index (BMI) [Ratio] 20.5 kg/m2 Dr. Daron Benton Work Phone: [facility] 12-02-2023 06:33-0500 Body temperature 97.6 [degF] Dr. Daron Benton Work Phone: [facility] 12-02-2023 06:33-0500 Body weight [address] Daron Benton Work Phone: 6(437)304-993449 [place] [address] 11-27-2023 12:32-0500 Body height 165.[address] Daron Benton Work Phone: [facility] 11-27-2023 09:46-0500 SaO2% (BldA) [Mass fraction] 96 % Dr. Daron Benton Work Phone: [facility] 11-27-2023 09:32-0500 Body temperature 98 [degF] Dr. Daron Benton Work Phone: [facility] 11-27-2023 09:32-0500 Diastolic blood pressure 97 mm[Hg] Dr. Daron Benton Work Phone: [facility] 11-27-2023 09:32-0500 Heart rate 52 /min Dr. Daron Benton Work Phone: [facility] 11-27-2023 09:32-0500 Respiratory rate 14 /min Dr. Daron Benton Work Phone: [facility] 11-27-2023 09:32-0500 Systolic blood pressure 196 mm[Hg] Dr. Daron Benton Work Phone: [facility] 11-27-2023 09:01-0500 Body mass index (BMI) [Ratio] 20 kg/m2 Dr. Daron Benton Work Phone: [facility] 11-27-2023 09:01-0500 Body weight 54.[address] Daron Benton Work Phone: [facility] 11-26-2023 15:22-0500 Diastolic blood pressure 81 mm[Hg] Dr. Daron Benton Work Phone: [facility] 11-26-2023 15:22-0500 Heart rate 69 /min Dr. Daron Benton Work Phone: [facility] 11-26-2023 15:22-0500 Respiratory rate 16 /min Dr. Daron Benton Work Phone: [facility] 11-26-2023 15:22-0500 SaO2% (BldA) [Mass fraction] 96 % Dr. Daron Benton Work Phone: [facility] 11-26-2023 15:22-0500 Systolic blood pressure 149 mm[Hg] Dr. Daron Benton Work Phone: [facility] 11-26-2023 12:47-0500 Body height 165.[address] Daron Benton Work Phone: [facility] 11-26-2023 12:47-0500 Body mass index (BMI) [Ratio] 20.2 kg/m2 Dr. Daron Benton Work Phone: [facility] 11-26-2023 12:47-0500 Body temperature 97 [degF] Dr. Daron Benton Work Phone: [facility] 11-26-2023 12:47-0500 Body weight 55.[address] Daron Benton Work Phone: [facility] 11-21-2023 11:50-0500 Body temperature 98.3 [degF] Dr. Daron Benton Work Phone: [facility] 11-21-2023 11:50-0500 Diastolic blood pressure 72 mm[Hg] Dr. Daron Benton Work Phone: [facility] 11-21-2023 11:50-0500 Heart rate 54 /min Dr. Daron Benton Work Phone: [facility] 11-21-2023 11:50-0500 Respiratory rate 16 /min Dr. Daron Benton Work Phone: [facility] 11-21-2023 11:50-0500 SaO2% (BldA) [Mass fraction] 94 % Dr. Daron Benton Work Phone: [facility] 11-21-2023 11:50-0500 Systolic blood pressure 134 mm[Hg] Dr. Daron Benton Work Phone: [facility] 11-21-2023 05:35-0500 Body mass index (BMI) [Ratio] 20.4 kg/m2 Dr. Daron Benton Work Phone: [facility] 11-21-2023 05:35-0500 Body weight 55.[address] Daron Benton Work Phone: [facility] 11-18-2023 15:44-0500 Body height 165.[address] Daron Benton Work Phone: [facility] 11-18-2023 15:18-0500 Body temperature 98.2 [degF] Dr. Daron Benton Work Phone: [facility] 11-18-2023 15:18-0500 Diastolic blood pressure 75 mm[Hg] Dr. Daron Benton Work Phone: [facility] 11-18-2023 15:18-0500 Heart rate 72 /min Dr. Daron Benton Work Phone: [facility] 11-18-2023 15:18-0500 Respiratory rate 17 /min Dr. Daron Benton Work Phone: [facility] 11-18-2023 15:18-0500 SaO2% (BldA) [Mass fraction] 93 % Dr. Daron Benton Work Phone: [facility] 11-18-2023 15:18-0500 Systolic blood pressure 161 mm[Hg] Dr. Daron Benton Work Phone: [facility] 11-18-2023 11:43-0500 Body height 165.[address] Daron Benton Work Phone: [facility] 11-18-2023 11:43-0500 Body mass index (BMI) [Ratio] 20.9 kg/m2 Dr. Daron Benton Work Phone: [facility] 11-18-2023 11:43-0500 Body weight 57.[address] Daron Benton Work Phone: [facility] 11-16-2023 11:05-0500 Body height 165.[address] Daron Benton Work Phone: [facility] 11-16-2023 11:05-0500 Body weight 54.[address] Daron Benton Work Phone: [facility] 11-16-2023 09:53-0500 Heart rate 66 /min Dr. Daron Benton Work Phone: [facility] 11-16-2023 09:31-0500 Body temperature 97.7 [degF] Dr. Daron Benton Work Phone: [facility] 11-16-2023 09:31-0500 Diastolic blood pressure 71 mm[Hg] Dr. Daron Benton Work Phone: [facility] 11-16-2023 09:31-0500 Respiratory rate 16 /min Dr. Daron Benton Work Phone: [facility] 11-16-2023 09:31-0500 SaO2% (BldA) [Mass fraction] 96 % Dr. Daron Benton Work Phone: [facility] 11-16-2023 09:31-0500 Systolic blood pressure 138 mm[Hg] Dr. Daron Benton Work Phone: [facility] 11-16-2023 01:54-0500 Body mass index (BMI) [Ratio] 19.9 kg/m2 Dr. Daron Benton Work Phone: [facility] 11-15-2023 15:21-0500 Diastolic blood pressure 49 mm[Hg] Dr. Daron Benton Work Phone: [facility] 11-15-2023 15:21-0500 Heart rate 60 /min Dr. Daron Benton Work Phone: 7(965)353-978049 [place] [address] 11-15-2023 15:21-0500 Respiratory rate 18 /min Dr. Daron Benton Work Phone: 8(680)744-570205 [address] 11-15-2023 15:21-0500 SaO2% (BldA) [Mass fraction] 98 % Dr. Daron Benton Work Phone: 3(370)485-242405 [address] 11-15-2023 15:21-0500 Systolic blood pressure 119 mm[Hg] Dr. Daron Benton Work Phone: 7(052)973-129105 [address] 11-15-2023 13:28-0500 Body temperature 97.8 [degF] Dr. Daron Benton Work Phone: 6(567)535-159305 [address] 11-15-2023 11:22-0500 Body height 165.[address] Daron Benton Work Phone: 2(522)162-422004 [place] [address] 11-15-2023 11:22-0500 Body mass index (BMI) [Ratio] 21.3 kg/m2 Dr. Daron Benton Work Phone: 7(942)335-648305 [address] 11-15-2023 11:22-0500 Body weight 58.[address] Daron Benton Work Phone: 6(486)960-204649 [place] [address] 11-02-2023 13:04-0500 Body mass index (BMI) [Ratio] 20.5 kg/m2 Dr. Daron Benton Work Phone: 5(458)431-755405 [address] 11-02-2023 13:04-0500 Body weight 55.[address] Daron Benton Work Phone: 1(659)451-044405 [address] 11-02-2023 13:04-0500 Diastolic blood pressure 68 mm[Hg] Dr. Daron Benton Work Phone: [facility] 11-02-2023 13:04-0500 Heart rate 89 /min Dr. Daron Benton Work Phone: [facility] 11-02-2023 13:04-0500 Respiratory rate 18 /min Dr. Daron Benton Work Phone: [facility] 11-02-2023 13:04-0500 SaO2% (BldA) [Mass fraction] 100 % Dr. Daron Benton Work Phone: [facility] 11-02-2023 13:04-0500 Systolic blood pressure 109 mm[Hg] Dr. Daron Benton Work Phone: [facility] 10-05-2023 08:07-0500 Diastolic blood pressure 82 mm[Hg] Dr. Daron Benton Work Phone: [facility] 10-05-2023 08:07-0500 Respiratory rate 16 /min Dr. Daron Benton Work Phone: [facility] 10-05-2023 08:07-0500 SaO2% (BldA) [Mass fraction] 96 % Dr. Daron Benton Work Phone: [facility] 10-05-2023 08:07-0500 Systolic blood pressure 214 mm[Hg] Dr. Daron Benton Work Phone: [facility] 10-05-2023 00:43-0500 Body height 165.[address] Daron Benton Work Phone: [facility] 10-05-2023 00:43-0500 Body mass index (BMI) [Ratio] 21.7 kg/m2 Dr. Daron Benton Work Phone: [facility] 10-05-2023 00:43-0500 Body temperature 97.8 [degF] Dr. Daron Benton Work Phone: [facility] 10-05-2023 00:43-0500 Body weight 59.[address] Draon Benton Work Phone: [facility] 10-05-2023 00:43-0500 Heart rate 55 /min Dr. Daron Benton Work Phone: [facility] 05-24-2023 11:16-0400 Body weight 52.[address] Daron Benton Work Phone: [facility] 05-24-2023 11:16-0400 Diastolic blood pressure 86 mm[Hg] Dr. Daron Benton Work Phone: [facility] 05-24-2023 11:16-0400 Heart rate 56 /min Dr. Daron Benton Work Phone: [facility] 05-24-2023 11:16-0400 Respiratory rate 20 /min Dr. Daron Benton Work Phone: [facility] 05-24-2023 11:16-0400 Systolic blood pressure 120 mm[Hg] Dr. Daron Benton Work Phone: [facility] 05-24-2023 09:19-0400 Body height 165.[address] Daron Benton Work Phone: [facility] 04-08-2023 12:14-0400 Diastolic blood pressure 87 mm[Hg] Dr. Daron Benton Work Phone: [facility] 04-08-2023 12:14-0400 Heart rate 50 /min Dr. Daron Benton Work Phone: [facility] 04-08-2023 12:14-0400 Respiratory rate 12 /min Dr. Daron Benton Work Phone: [facility] 04-08-2023 12:14-0400 SaO2% (BldA) [Mass fraction] 98 % Dr. Draon Benton Work Phone: [facility] 04-08-2023 12:14-0400 Systolic blood pressure 162 mm[Hg] Dr. Daron Benton Work Phone: [facility] 04-08-2023 09:19-0400 Body height 165.[address] Daron Benton Work Phone: 6(382)134-223449 [place] [address] 04-08-2023 09:19-0400 Body mass index (BMI) [Ratio] 19.1 kg/m2 Dr. Daron Benton Work Phone: 1(004)368-756949 [place] [address] 04-08-2023 09:19-0400 Body temperature 97.5 [degF] Dr. Daron Benton Work Phone: 1(661)121-801004 [place] [address] 04-08-2023 09:19-0400 Body weight [address] Daron Benton Work Phone: 1(658)267-695404 [place] [address] 03-31-2023 15:10-0400 Diastolic blood pressure 82 mm[Hg] Dr. Daron Benton Work Phone: 6(566)189-464704 [place] [address] 03-31-2023 15:10-0400 Heart rate 45 /min Dr. Daron Benton Work Phone: 6(024)298-623204 [place] [address] 03-31-2023 15:10-0400 Respiratory rate 16 /min Dr. Daron Benton Work Phone: 2(452)375-608304 [place] [address] 03-31-2023 15:10-0400 SaO2% (BldA) [Mass fraction] 100 % Dr. Daron Benton Work Phone: 5(542)334-368904 [place] [address] 03-31-2023 15:10-0400 Systolic blood pressure 198 mm[Hg] Dr. Daron Benton Work Phone: 9(404)974-932904 [place] [address] 03-31-2023 12:40-0400 Body mass index (BMI) [Ratio] 19.5 kg/m2 Dr. Daron Benton Work Phone: 8(878)919-233904 [place] [address] 03-31-2023 12:40-0400 Body weight 53.[address] Daron Benton Work Phone: 8(964)169-519604 [place] [address] 03-31-2023 12:33-0400 Body height 165.[address] Daron Benton Work Phone: 9(307)295-499604 [place] [address] 03-31-2023 12:33-0400 Body temperature 96.9 [degF] Dr. Daron Benton Work Phone: 3(898)031-100404 [place] [address] 03-16-2023 12:26-0400 Body height 165.[address] Daron Benton Work Phone: [facility] 03-16-2023 12:26-0400 Body mass index (BMI) [Ratio] 19.1 kg/m2 Dr. Daron Benton Work Phone: [facility] 03-16-2023 12:26-0400 Body temperature 97.3 [degF] Dr. Daron Benton Work Phone: 9(714)462-659705 [address] 03-16-2023 12:26-0400 Body weight 52.[address] Daron Benton Work Phone: 0(999)288-258605 [address] 03-16-2023 12:26-0400 Diastolic blood pressure 85 mm[Hg] Dr. Daron Benton Work Phone: 3(568)018-227205 [address] 03-16-2023 12:26-0400 Heart rate 58 /min Dr. Daron Benton Work Phone: 4(945)407-606205 [address] 03-16-2023 12:26-0400 Respiratory rate 14 /min Dr. Daron Benton Work Phone: 7(806)544-394105 [address] 03-16-2023 12:26-0400 SaO2% (BldA) [Mass fraction] 100 % Dr. Daron Benton Work Phone: 9(191)424-393005 [address] 03-16-2023 12:26-0400 Systolic blood pressure 163 mm[Hg] Dr. Daron Benton Work Phone: 1(802)563-598449 [place] [address] 11-24-2022 18:46-0500 Body height 167.[address] Daron Benton Work Phone: 3(515)817-148849 [place] [address] 11-24-2022 18:46-0500 Body mass index (BMI) [Ratio] 19.3 kg/m2 Dr. Daron Benton Work Phone: 1(185)367-780305 [address] 11-24-2022 18:46-0500 Body temperature 97.2 [degF] Dr. Daron Benton Work Phone: 1(845)458-209449 [place] [address] 11-24-2022 18:46-0500 Body weight 54.[address] Daron Benton Work Phone: [facility] 11-24-2022 18:46-0500 Diastolic blood pressure 106 mm[Hg] Dr. Daron Benton Work Phone: [facility] 11-24-2022 18:46-0500 Heart rate 61 /min Dr. Daron Benton Work Phone: [facility] 11-24-2022 18:46-0500 Respiratory rate 18 /min Dr. Daron Benton Work Phone: [facility] 11-24-2022 18:46-0500 SaO2% (BldA) [Mass fraction] 100 % Dr. Daron Benton Work Phone: [facility] 11-24-2022 18:46-0500 Systolic blood pressure 159 mm[Hg] Dr. Daron Benton Work Phone: [facility] 11-09-2022 14:07-0500 Diastolic Blood Pressure Non-Invasive 66 1 TYE BARNETT MD [facility] 11-09-2022 14:07-0500 Heart rate 56 /min TYE BARNETT MD [facility] 11-09-2022 14:07-0500 Systolic Blood Pressure Non-Invasive 155 1 TYE BARNETT MD [facility] 11-09-2022 13:42-0500 Diastolic Blood Pressure Non-Invasive 69 1 TYE BARNETT MD [facility] 11-09-2022 13:42-0500 Heart rate 58 /min TYE BARNETT MD [facility] 11-09-2022 13:42-0500 Systolic Blood Pressure Non-Invasive 156 1 TYE BARNETT MD [facility] 11-09-2022 13:14-0500 Diastolic Blood Pressure Non-Invasive 86 1 TYE BARNETT MD [facility] 11-09-2022 13:14-0500 Heart rate 54 /min TYE BARNETT MD [facility] 11-09-2022 13:14-0500 Systolic Blood Pressure Non-Invasive 175 1 TYE BARNETT MD [facility] 11-09-2022 11:25-0500 Reason For Taking VItal Signs TYE BARNETT MD [facility] 11-09-2022 11:25-0500 Respiratory rate 16 /min TYE BARNETT MD [facility] 11-09-2022 11:03-0500 Respiratory rate 16 /min TYE BARNETT MD [facility] 11-09-2022 10:38-0500 Respiratory rate 16 /min TYE BARNETT MD [facility] 11-09-2022 06:29-0500 Blood Pressure Location TYE BARNETT MD [facility] 11-09-2022 06:29-0500 Body height 167.6 cm TYE BARNETT MD [facility] 11-09-2022 06:29-0500 Body temperature 97.7 [degF] TYE BARNETT MD [facility] 11-09-2022 06:29-0500 Body weight 54.8 kg TYE BARNETT MD [facility] 11-09-2022 06:29-0500 Body weight 19.51 kg/m2 TYE BARNETT MD [facility] 10-26-2022 13:20-0500 Body mass index (BMI) [Ratio] 19 kg/m2 Dr. Daron Benton Work Phone: [facility] 10-26-2022 13:20-0500 Body weight 53.[address] Daron Benton Work Phone: [facility] 10-26-2022 13:20-0500 Diastolic blood pressure 70 mm[Hg] Dr. Daron Benton Work Phone: [facility] 10-26-2022 13:20-0500 Heart rate 51 /min Dr. Daron Benton Work Phone: [facility] 10-26-2022 13:20-0500 Respiratory rate 18 /min Dr. Daron Benton Work Phone: [facility] 10-26-2022 13:20-0500 SaO2% (BldA) [Mass fraction] 100 % Dr. Daron Benton Work Phone: [facility] 10-26-2022 13:20-0500 Systolic blood pressure 129 mm[Hg] Dr. Daron Benton Work Phone: [facility] 05-16-2022 12:37-0400 Body height 167.[address] Daron Benton Work Phone: [facility] Work Phone: 05-16-2022 12:37-0400 Body mass index (BMI) [Ratio] 19.5 kg/m2 Dr. Daron Benton Work Phone: [facility] Work Phone: 05-16-2022 12:37-0400 Body weight 54.[address] Daron Benton Work Phone: [facility] Work Phone: 05-16-2022 12:37-0400 Diastolic blood pressure 75 mm[Hg] Dr. Daron Benton Work Phone: [facility] Work Phone: 05-16-2022 12:37-0400 Heart rate 57 /min Dr. Daron Benton Work Phone: [facility] Work Phone: 05-16-2022 12:37-0400 Respiratory rate 18 /min Dr. Daron Benton Work Phone: [facility] Work Phone: 05-16-2022 12:37-0400 SaO2% (BldA) [Mass fraction] 98 % Dr. Daron Benton Work Phone: [facility] Work Phone: 05-16-2022 12:37-0400 Systolic blood pressure 115 mm[Hg] Dr. Daron Benton Work Phone: [facility] Work Phone: 02-22-2022 10:52-0400 Body height 167.[address] Daron Benton Work Phone: [facility] Work Phone: 02-22-2022 10:52-0400 Body mass index (BMI) [Ratio] 20.1 kg/m2 Dr. Daron Benton Work Phone: [facility] Work Phone: 02-22-2022 10:52-0400 Body weight 56.[address] Daron Benton Work Phone: [facility] Work Phone: 02-22-2022 10:52-0400 Diastolic blood pressure 94 mm[Hg] Dr. Daron Benton Work Phone: [facility] Work Phone: 02-22-2022 10:52-0400 Heart rate 56 /min Dr. Daron Benton Work Phone: [facility] Work Phone: 02-22-2022 10:52-0400 Respiratory rate 18 /min Dr. Daron Benton Work Phone: [facility] Work Phone: 02-22-2022 10:52-0400 SaO2% (BldA) [Mass fraction] 96 % Dr. Daron Benton Work Phone: [facility] Work Phone: 02-22-2022 10:52-0400 Systolic blood pressure 169 mm[Hg] Dr. Daron Benton Work Phone: [facility] Work Phone: 02-20-2022 19:23-0400 Diastolic blood pressure 89 mm[Hg] Dr. Daron Benton Work Phone: [facility] Work Phone: 02-20-2022 19:23-0400 Heart rate 67 /min Dr. Daron Benton Work Phone: [facility] Work Phone: 02-20-2022 19:23-0400 Respiratory rate 15 /min Dr. Daron Benton Work Phone: [facility] Work Phone: 02-20-2022 19:23-0400 SaO2% (BldA) [Mass fraction] 97 % Dr. Daron Benton Work Phone: [facility] Work Phone: 02-20-2022 19:23-0400 Systolic blood pressure 172 mm[Hg] Dr. Daron Benton Work Phone: [facility] Work Phone: 02-20-2022 16:38-0400 Body mass index (BMI) [Ratio] 20.6 kg/m2 Dr. Daron Benton Work Phone: [facility] Work Phone: 02-20-2022 16:38-0400 Body temperature 96.5 [degF] Dr. Daron Benton Work Phone: [facility] Work Phone: 02-20-2022 16:38-0400 Body weight 58.[address] Daron Benton Work Phone: [facility] Work Phone: 02-18-2022 07:24-0400 Diastolic blood pressure 84 mm[Hg] Dr. Daron Benton Work Phone: [facility] Work Phone: 02-18-2022 07:24-0400 Heart rate 82 /min Dr. Daron Benton Work Phone: [facility] Work Phone: 02-18-2022 07:24-0400 Respiratory rate 16 /min Dr. Daron Benton Work Phone: [facility] Work Phone: 02-18-2022 07:24-0400 SaO2% (BldA) [Mass fraction] 98 % Dr. Daron Benton Work Phone: [facility] Work Phone: 02-18-2022 07:24-0400 Systolic blood pressure 145 mm[Hg] Dr. Daron Benton Work Phone: [facility] Work Phone: 02-18-2022 04:09-0400 Body height 167.[address] Daron Benton Work Phone: [facility] Work Phone: 02-18-2022 04:09-0400 Body mass index (BMI) [Ratio] 21.2 kg/m2 Dr. Daron Benton Work Phone: [facility] Work Phone: 02-18-2022 04:09-0400 Body temperature 97 [degF] Dr. Daron Benton Work Phone: [facility] Work Phone: 02-18-2022 04:09-0400 Body weight 59.[address] Daron Benton Work Phone: [facility] Work Phone: 02-17-2022 22:28-0400 Diastolic blood pressure 87 mm[Hg] Dr. Daron Benton Work Phone: [facility] Work Phone: 02-17-2022 22:28-0400 Heart rate 82 /min Dr. Daron Benton Work Phone: [facility] Work Phone: 02-17-2022 22:28-0400 Respiratory rate 15 /min Dr. Daron Benton Work Phone: [facility] Work Phone: 02-17-2022 22:28-0400 SaO2% (BldA) [Mass fraction] 98 % Dr. Daron Benton Work Phone: [facility] Work Phone: 02-17-2022 22:28-0400 Systolic blood pressure 145 mm[Hg] Dr. Daron Benton Work Phone: [facility] Work Phone: 02-17-2022 21:33-0400 Body height 167.[address] Daron Benton Work Phone: [facility] Work Phone: 02-17-2022 21:33-0400 Body mass index (BMI) [Ratio] 20.6 kg/m2 Dr. Daron Benton Work Phone: [facility] Work Phone: 02-17-2022 21:33-0400 Body temperature 98.1 [degF] Dr. Daron Benton Work Phone: [facility] Work Phone: 02-17-2022 21:33-0400 Body weight 58.[address] Daron Benton Work Phone: [facility] Work Phone: 02-14-2022 23:00-0400 Diastolic blood pressure 78 mm[Hg] Dr. Daron Benton Work Phone: [facility] Work Phone: 02-14-2022 23:00-0400 Heart rate 78 /min Dr. Daron Benton Work Phone: [facility] Work Phone: 02-14-2022 23:00-0400 Respiratory rate 16 /min Dr. Daron Benton Work Phone: [facility] Work Phone: 02-14-2022 23:00-0400 SaO2% (BldA) [Mass fraction] 97 % Dr. Daron Benton Work Phone: [facility] Work Phone: 02-14-2022 23:00-0400 Systolic blood pressure 159 mm[Hg] Dr. Daron Benton Work Phone: [facility] Work Phone: 02-14-2022 15:46-0400 Body mass index (BMI) [Ratio] 22 kg/m2 Dr. Daron Benton Work Phone: [facility] Work Phone: 02-14-2022 15:46-0400 Body temperature 98.2 [degF] Dr. Daron Benton Work Phone: [facility] Work Phone: 02-14-2022 15:46-0400 Body weight 61.[address] Daron Benton Work Phone: [facility] Work Phone: 02-08-2022 12:58-0400 Body mass index (BMI) [Ratio] 20.5 kg/m2 Dr. Daron Benton Work Phone: [facility] Work Phone: 02-08-2022 12:58-0400 Body weight 57.[address] Daron Benton Work Phone: [facility] Work Phone: 02-08-2022 12:58-0400 Diastolic blood pressure 76 mm[Hg] Dr. Daron Benton Work Phone: [facility] Work Phone: 02-08-2022 12:58-0400 Heart rate 51 /min Dr. Daron Benton Work Phone: [facility] Work Phone: 02-08-2022 12:58-0400 Respiratory rate 18 /min Dr. Daron Benton Work Phone: [facility] Work Phone: 02-08-2022 12:58-0400 SaO2% (BldA) [Mass fraction] 99 % Dr. Daron Benton Work Phone: [facility] Work Phone: 02-08-2022 12:58-0400 Systolic blood pressure 136 mm[Hg] Dr. Daron Benton Work Phone: [facility] Work Phone: 02-08-2022 12:58-0400 Body mass index (BMI) [Ratio] 20.5 kg/m2 Dr. Daron Benton Work Phone: [facility] Work Phone: 02-08-2022 12:58-0400 Body weight 57.[address] Daron Benton Work Phone: [facility] Work Phone: 02-08-2022 12:58-0400 Diastolic blood pressure 76 mm[Hg] Dr. Daron Benton Work Phone: [facility] Work Phone: 02-08-2022 12:58-0400 Heart rate 51 /min Dr. Daron Benton Work Phone: [facility] Work Phone: 02-08-2022 12:58-0400 Respiratory rate 18 /min Dr. Daron Benton Work Phone: [facility] Work Phone: 02-08-2022 12:58-0400 SaO2% (BldA) [Mass fraction] 99 % Dr. Daron Benton Work Phone: [facility] Work Phone: 02-08-2022 12:58-0400 Systolic blood pressure 136 mm[Hg] Dr. Daron Benton Work Phone: [facility] Work Phone: 01-23-2022 10:55-0500 Body mass index (BMI) [Ratio] 21 kg/m2 Dr. Daron Benton Work Phone: [facility] Work Phone: 01-23-2022 10:55-0500 Body temperature 97.3 [degF] Dr. Daron Benton Work Phone: [facility] Work Phone: 01-23-2022 10:55-0500 Body weight 59.[address] Daron Benton Work Phone: [facility] Work Phone: 01-23-2022 10:55-0500 Diastolic blood pressure 105 mm[Hg] Dr. Daron Benton Work Phone: [facility] Work Phone: 01-23-2022 10:55-0500 Heart rate 54 /min Dr. Daron Benton Work Phone: [facility] Work Phone: 01-23-2022 10:55-0500 Respiratory rate 16 /min Dr. Daron Benton Work Phone: [facility] Work Phone: 01-23-2022 10:55-0500 SaO2% (BldA) [Mass fraction] 96 % Dr. Daron Benton Work Phone: [facility] Work Phone: 01-23-2022 10:55-0500 Systolic blood pressure 194 mm[Hg] Dr. Daron Benton Work Phone: [facility] Work Phone: 01-23-2022 09:55-0500 Body mass index (BMI) [Ratio] 21 kg/m2 Dr. Daron Benton Work Phone: [facility] Work Phone: 01-23-2022 09:55-0500 Body temperature 97.3 [degF] Dr. Daron Benton Work Phone: [facility] Work Phone: 01-23-2022 09:55-0500 Body weight 59.[address] Daron Benton Work Phone: [facility] Work Phone: 01-23-2022 09:55-0500 Diastolic blood pressure 105 mm[Hg] Dr. Daron Benton Work Phone: [facility] Work Phone: 01-23-2022 09:55-0500 Heart rate 54 /min Dr. Daron Benton Work Phone: [facility] Work Phone: 01-23-2022 09:55-0500 Respiratory rate 16 /min Dr. Daron Benton Work Phone: [facility] Work Phone: 01-23-2022 09:55-0500 SaO2% (BldA) [Mass fraction] 96 % Dr. Daron Benton Work Phone: [facility] Work Phone: 01-23-2022 09:55-0500 Systolic blood pressure 194 mm[Hg] Dr. Daron Benton Work Phone: [facility] Work Phone: 01-18-2022 07:11-0500 Body weight 56.[address] Daron Benton Work Phone: [facility] Work Phone: 01-18-2022 06:11-0500 Body weight 56.[address] Daron Benton Work Phone: [facility] Work Phone: 01-17-2022 08:23-0500 Body mass index (BMI) [Ratio] 20.7 kg/m2 Dr. Daron Benton Work Phone: [facility] Work Phone: 01-17-2022 07:23-0500 Body mass index (BMI) [Ratio] 20.7 kg/m2 Dr. Daron Benton Work Phone: [facility] Work Phone: Encounters Encounter Date Encounter Type Care Provider Facility Start: 08-05-2025 End: 08-06-2025 Dr. Daron Benton MD Work Phone: -Emergency Department Work Phone: Start: 08-05-2025 End: 08-06-2025 Emergency department patient visit Dr. Daron Benton MD Work Phone: -Emergency Department Start: 08-05-2025 End: 08-05-2025 Betsey PEÑA -[facility] Work Phone: Start: 08-05-2025 End: 08-05-[address] Daron Benton MD Work Phone: -[facility] Start: 07-31-2025 End: 08-01-2025 Dr. Jeffy Willoughby MD -Emergency [facility] Work Phone: Start: 07-31-2025 End: 08-01-2025 Emergency department patient visit Jeffy Willoughby Facility:[facility] Start: 07-23-2025 End: 07-23-2025 Office outpatient visit 15 minutes Lizz Lynn APRN [facility] Work Phone: [facility] Comment on above: Multiple sclerosis ( HCC) Start: 07-23-2025 End: 07-23-2025 ambulatory [facility] Start: 07-22-2025 End: 07-23-2025 Dr. Daron Benton MD Work Phone: -Emergency [...] Facility:[facility] Start: 06-24-2025 ambulatory Lucas CHAWLA Facility:[facility] Start: 06-24-2025 uLcas Ayala Emilee - Gaurav Start: 06-17-2025 ambulatory Lucas lopez DENTON Facility:[facility] Start: 06-17-2025 Lucas Ayala Emilee Nolasco Start: 06-16-2025 End: 06-16-[address] Daron Benton MD Work Phone: [facility] Start: 06-16-2025 End: 06-16-2025 Dr. Lucas Wyatt MD -[facility] Work Phone: Start: 06-12-2025 End: 06-12-[address] Daron Benton MD Work Phone: [facility] Start: 06-12-2025 End: 06-12-2025 Karen HAMMOND -[facility] Work Phone: Start: 06-10-2025 End: 06-10-[address] Daron Benton MD Work Phone: [facility] Start: 06-10-2025 End: 06-10-2025 [facility] Start: 06-09-2025 [facility] Start: 06-09-2025 Dr. Dex claros DO -[facility] Work Phone: Start: 06-08-2025 Dr. Dex claros DO [facility] Work Phone: Start: 06-07-2025 Dr. Roman Mckeon MD -[facility] Work Phone: Start: 06-06-2025 Dr. Roman Mckeon MD [facility] Work Phone: Start: 06-05-2025 Kevin Gonzalez DO -[facility] Start: 06-05-2025 Dr. Roman Mckeon MD - [facility] Work Phone: Start: 06-04-2025 Kevin Wingate DO -[facility] Start: 06-04-2025 Dr. Roman Mckeon MD -[facility] Work Phone: Start: 06-03-2025 Kevin Wingate DO -[facility] Start: 06-03-2025 ambulatory Kevindavid Gonzalez Facility :[facility] Start: 06-03-2025 End: 06-09-2025 Evaluation and management of inpatient Dr. Daron Benton MD Work Phone: -Progressive Care Unit Start: 06-03-2025 End: 06-09-2025 Dr. Roman Mckeon MD -[facility] Un it Work Phone: Start: 05-20-2025 End: 05-20-[address] Daron Benton MD Work Phone: [facility] Start: 05-20-2025 End: 05-20-2025 Lizz Lynn [employer]-C -[facility] Work Phone: Start: 05-20-2025 End: 05-20-2025 ambulatory Lizz Lynn Facility:[facility] Start: 05-19-2025 End: 05-19-2025 Dr. Daron Benton MD Work Phone: -Emergency Department Work Phone: Start: 05-19-2025 End: 05-19-2025 Emergency department patient visit Dr. Daron Benton MD Work Phone: -Emergency Department Start: 05-15-2025 End: 05-15-[address] Daron Benton MD Work Phone: -Cat Scan [facility] Start: 05-15-2025 End: 05-15-2025 Dr. Tye Barnett MD -Cat Scan [facility] Work Phone: Start: 05-15-2025 End: 05-15-2025 ambulatory Tye Barnett Facility:[facility] Start: 05-06-2025 End: 05-06-2025 Iona HAMMOND -[facility] Work Phone: Start: 05-06-2025 End: 05-06-[address] Daron Benton MD Work Phone: [facility] Work Phone: Start: 05-05-2025 End: 05-06-2025 Telephone encounter Lizz Lynn EMBOSSER APPRENTICE - G[employer] ENGINE REPAIRER Work Phone: [facility] Comment on above: Prior Authorization Start: 04-28-2025 ambulatory Daron Benton Facility:[facility] Start: 04-24-2025 End: 04-24-2025 Telephone encounter Lizz Lynn EMBOSSER APPRENTICE - GAS ENGINE REPAIRER Work Phone: [facility] Comment on above: Med Refill (Baclofen ) Start: 04-22-2025 Kevin Wingate DO -[facility] Start: 04-22-2025 Dr. Roman Mckeon MD - [facility] Work Phone: Start: 04-21-2025 Kevin Wingate DO -[facility] Start: 04-21-2025 Dr. Sommer archibald MD -[facility] Work Phone: Start: 04-20-2025 [facility] DO -[facility] [facility] Start: 04-20-2025 Dr. Roman Mckeon [...] End: 04-11-2025 Dr. Ramírez Onofre MD [facility] Work Phone: Start: 04-11-2025 End: 04-11-2025 Emergency department patient visit Dr. Ramírez Onofre MD -Emergency Department Work Phone: Start: 04-08-2025 End: 04-08-2025 [facility] [address] [facility] Work Phone: [facility] Comment on above: Multiple sclerosis ( HCC) (Primary Dx); Dysphasia Start: 04-08-2025 End: 04-08-2025 ambulatory [facility] Start: 04-02-2025 End: 04-02-2025 Dr. Daron Benton MD Work Phone: -Emergency Department Work Phone: Start: 04-02-2025 End: 04-02-2025 Emergency department patient visit Dr. Daron Benton MD Work Phone: [facility] Work Phone: Start: 03-19-2025 ambulatory Orlando Jacob Facility:[facility] Start: 03-19-2025 Non-patient / Non-visit Dr. Ch[place] FOX -[facility] Start: 03-19-2025 End: 03-19-[address] Orlando Jacob MD -Cardiovascular Services Work Phone: Start: 03-19-2025 End: 03-19-2025 Dr. Orlando Jacob MD -[facility] Start: 03-19-2025 End: 03-19-2025 ambulatory Orlando Jacob Facility:[facility] Start: 03-09-2025 End: 03-09-2025 Telephone encounter Lizz Robert EMBOSSER APPRENTICE - GAS ENGINE REPAIRER Work Phone: [facility] Clinical Communication Comment on above: Orders (MRI order) Start: 03-04-2025 End: 03-04-2025 Office outpatient visit 15 minutes Lizzdanielle Lynn EMBOSSER APPRENTICE - GAS ENGINE REPAIRER Work Phone: [facility] Comment on above: Multiple sclerosis ( HCC) (Primary Dx); Mild cognitive impairment; Fatigue, unspecified type; Deficiency of multiple nutrient elements Start: 03-04-2025 End: 03-04-2025 ambulatory [facility] Start: 02-20-2025 End: 02-20-2025 Patient encounter procedure Betsey PEÑA -[facility] Work Phone: Start: 02-20-2025 End: 02-20-2025 Betsey PEÑA -[facility] Work Phone: Start: 02-20-2025 End: 02-20-2025 ambulatory Betsey PEÑA Facility:[facility] Start: 01-15-2025 End: 01-15-[address] Daron Benton MD -[facility] [place] Work Phone: Start: 01-15-2025 End: 01-15-2025 Dr. Daron Benton MD -[facility] [place] Work Phone: Start: 01-15-2025 End: 01-15-2025 ambulatory Daron Benton Facility:[facility] Start: 01-13-2025 Non-patient / Non-visit Dr. Damian Worrell [facility] Inpatient Physicians Work Phone: Start: 01-13-2025 Dr. Dex claros [facility] In[facility] Phys[facility] Work Phone: Start: 01-12-2025 Non-patient / Non-visit Dr. Damian Worrell [facility] In[facility] Work Phone: Start: 01-12-2025 Dr. Dex claros [facility] Work Phone: Start: 01-12-2025 Non-patient / Non-visit Dr. Rafaela Smiley MD [facility] Start: 01-12-2025 Dr. Bhavik blevins MD [facility] Start: 01-12-2025 [facility] Start: 01-12-2025 Non-patient / Non-visit Dr. Kacie Weiner MD [facility] Start: 01-12-2025 Dr. Kofi Weiner MD [facility] Start: 01-11-2025 Non-patient / Non-visit Dr. Kacie Watson MD [facility] Inpatient Physicians Work Phone: Start: 01-11-2025 Dr. Neha simpson [facility] Inpatient Physicians Work Phone: Start: 01-11-2025 Non-patient / Non-visit Dr. Carlos A olea MD [facility] Start: 01-11-2025 Dr. Carlos A Parikh MD [facility] Start: 01-10-2025 ambulatory Sommer Resendiz Facility :[facility] Start: 01-10-2025 End: 01-13-2025 Evaluation and management of inpatient Dr. Dex Worrell [facility] Work Phone: Start: 01-10-2025 End: 01-13-2025 Dr. Dex Worrell DO [facility] Work Phone: Start: 12-24-2024 End: 12-24-2024 Patient encounter procedure LOCKSTITCH SLEEVE MAKER Negar Mckeon [facility] Pulmonary Medicine Work Phone: Start: 12-24-2024 End: 12-24-2024 REJI Mckeon [facility] Pulmona ry Medicine Work Phone: Start: 12-24-2024 End: 12-24-2024 ambulatory Daron Benton Facility:[facility] Start: 12-19-2024 End: 12-19-2024 Patient encounter procedure Betsey PEÑA -[facility] Work Phone: Start: 12-19-2024 End: 12-19-2024 Betsey PEÑA -[facility] Work Phone: Start: 12-19-2024 End: 12-19-2024 ambulatory Betsey PEÑA Facility:[facility] Start: 12-17-2024 End: 12-17-2024 Dr. Jeffy Willoughby MD -[facility] Work Phone: Start: 12-17-2024 End: 12-17-2024 Emergency department patient visit Daron Benton Facility:[facility] Start: 12-11-2024 Dr. Neha simpson MD -[facility] Work Phone: Start: 12-10-2024 Dr. Neha simpson MD -[facility] Work Phone: Start: 12-10-2024 Dr. Kofi Weiner MD -[facility] Start: 12-09-2024 End: 12-11-2024 ambulatory Neha Watson Facility:[facility] Start: 12-09-2024 End: 12-11-2024 Dr. Neha Watson MD -Progressive Care Unit Work Phone: Start: 11-28-2024 End: 11-28-2024 Emergency department patient visit Daron Benton Facility:[facility] Start: 11-24-2024 End: 11-24-2024 ambulatory Daron Benton Facility:[facility] Start: 11-20-2024 End: 11-20-2024 Ankit Lynn APRN - GAS ENGINE REPAIRER Work Phone: [facility] Comment on above: Multiple sclerosis ( HCC) Start: 10-08-2024 End: 10-08-2024 ambulatory Daron Benton Facility:[facility] Start: 10-06-2024 ambulatory Jorge Hurtado [facility] Start: 10-03-2024 End: 10-03-2024 ambulatory Jorge Brown Facility:[facility] Start: 10-01-2024 End: 10-01-2024 ambulatory Jorge Brown Facility:[facility] Start: 09-14-2024 End: 09-15-2024 Ankit Oleary Israel EMBOSSER APPRENTICE - GAS ENGINE REPAIRER Work Phone: [facility] Comment on above: Multiple sclerosis ( HCC) Start: 08-27-2024 End: 08-27-2024 ambulatory Tye Barnett Facility:[facility] Start: 08-25-2024 End: 08-25-2024 ambulatory Jorge Brown Facility:[facility] Start: 08-21-2024 End: 08-21-2024 ambulatory Jorge Brown Facility:[facility] Start: 08-14-2024 End: 08-14-2024 ambulatory Daron Benton Facility:[facility] Start: 02-29-2024 End: 02-29-[address] Daron Benton Work Phone: [facility] Work Phone: Start: 02-29-2024 End: 02-29-2024 Dr. Daron Benton Work Phone: [facility] Start: 02-25-2024 Dr. Daron Benton Work Phone: [facility] Inpatient Physicians Work Phone: Start: 02-25-2024 Dr. Daron Benton Work Phone: [facility] Start: 02-24-2024 Dr. Daron Benton Work Phone: [facility] Inpatient Physicians Work Phone: Start: 02-24-2024 End: 02-24-2024 Dr. Daron Benton Work Phone: [facility] Heart Group Work Phone: Start: 02-23-2024 End: 02-23-2024 Dr. Daron Benton Work Phone: [facility] Work Phone: Start: 02-23-2024 Dr. Daron Benton Work Phone: [facility] Start: 02-23-2024 Dr. Daron Benton Work Phone: [facility] Inpatient Physicians Work Phone: Start: 02-22-2024 Dr. Daron Benton Work Phone: [facility] Start: 02-22-2024 Dr. Daron Benton Work Phone: [facility] Physicians Work Phone: Start: 02-21-2024 Dr. Daron Benton Work Phone: [facility] Start: 02-21-2024 Dr. Daron Benton Work Phone: [facility] Inpatient Physicians Work Phone: Start: 02-20-2024 Dr. Daron Benton Work Phone: [facility] Inpatient Physicians Work Phone: Start: 02-19-2024 Dr. Daron Benton Work Phone: [facility] Start: 02-19-2024 End: 02-25-2024 Evaluation and management of inpatient Dr. Daron Benton Work Phone: [facility] Work Phone: Start: 02-19-2024 End: 02-25-2024 Dr. Daron Benton Work Phone: [facility] Inpatient Physicians Work Phone: Start: 02-11-2024 Ankit Main MD Work Phone: [facility] Neuroscience Comment on above: Multiple sclerosis ( HCC) Start: 01-18-2024 End: 01-18-2024 Emergency department patient visit Dr. Daron Benton Work Phone: [facility] Work Phone: Start: 01-18-2024 End: 01-18-2024 Dr. Daron Benton Work Phone: [facility]-Emergency Department Work Phone: Start: 01-18-2024 End: 01-18-[address] Daron Benton Work Phone: [facility] Work Phone: Start: 01-18-2024 End: 01-18-2024 Dr. Daron Benton [facility] Start: 01-11-2024 End: 01-11-2024 Emergency department patient visit Dr. Daron Benton Work Phone: [facility] Work Phone: Start: 01-11-2024 End: 01-11-2024 Dr. Daron Benton Work Phone: [facility]-Emergency Department Work Phone: Start: 01-08-2024 Dr. Daron Benton Work Phone: [facility]-Physical Therapy Work Phone: Start: 12-21-2023 End: 12-21-2023 Dr. Daron Benton Work Phone: [facility]-Laboratory Work Phone: Start: 12-21-2023 End: 12-21-2023 Dr. Daron Benton Work Phone: [facility] Work Phone: Start: 12-14-2023 End: 12-14-2023 Office outpatient visit 40 minutes Lizz Lynn APRN - GAS ENGINE REPAIRER Work Phone: [facility]science Comment on above: Multiple sclerosis ( HCC) (Primary Dx); Dizziness; Imbalance; Vision disturbance Start: 12-07-2023 Dr. Daron Benton Work Phone: [facility] Inpatient Physicians Work Phone: Start: 12-06-2023 Dr. Daron Benton Work Phone: [facility] Inpatient Physicians Work Phone: Start: 12-05-2023 Dr. Daron Benton Work Phone: [facility] Inpatient Physicians Work Phone: Start: 12-05-2023 Dr. Daron Benton Work Phone: [facility] Start: 12-04-2023 Dr. Daron Benton Work Phone: [facility] Inpatient Physicians Work Phone: Start: 12-04-2023 Dr. Daron Benton Work Phone: [facility] Start: 12-03-2023 Dr. Daron Benton Work Phone: [facility] Inpatient Physicians Work Phone: Start: 12-02-2023 End: 12-07-2023 Evaluation and management of inpatient Dr. Daron Benton Work Phone: [facility] Work Phone: Start: 12-02-2023 End: 12-07-2023 Dr. Daron Benton Work Phone: [facility] Inpatient Physicians Work Phone: Start: 11-27-2023 End: 11-27-2023 Emergency department patient visit Dr. Daron Benton Work Phone: [facility]-Emergency Department Work Phone: Start: 11-27-2023 End: 11-27-2023 Dr. Daron Benton Work Phone: [facility]-Emergency Department Work Phone: Start: 11-26-2023 End: 11-26-2023 Emergency department patient visit Dr. Daron Benton Work Phone: [facility]-Emergency Department Work Phone: Start: 11-26-2023 End: 11-26-2023 Dr. Daron Benton Work Phone: [facility]-Emergency Department Work Phone: Start: 11-21-2023 Non-patient / Non-visit Dr. Sarah Benton Work Phone: [facility] Inpatient Physicians Work Phone: Start: 11-21-2023 Dr. Daron Benton Work Phone: [facility] Inpatient Physicians Work Phone: Start: 11-20-2023 Non-patient / Non-visit Dr. Sarah Benton Work Phone: [facility] Inpatient Physicians Work Phone: Start: 11-20-2023 Dr. Daron Benton Work Phone: [facility] Inpatient Physicians Work Phone: Start: 11-19-2023 Non-patient / Non-visit Dr. Sarah Benton Work Phone: [facility] Start: 11-19-2023 Dr. Daron Benton Work Phone: [facility] Start: 11-18-2023 End: 11-21-2023 Evaluation and management of inpatient Dr. Daron Benton [facility] Work Phone: Start: 11-18-2023 End: 11-21-2023 Dr. Daron Benton [facility] Work [facility]: Start: 11-16-2023 Non-patient / Non-visit Dr. Sarah Benton Work Phone: [facility] Inpatient Physicians Work Phone: Start: 11-16-2023 Dr. Daron Benton Work Phone: [facility] Inpatient Physicians Work Phone: Start: 11-15-2023 End: 11-16-2023 Evaluation and management of inpatient Dr. Daron Benton Work Phone: [facility] Work Phone: Start: 11-15-2023 End: 11-16-2023 Dr. Daron Benton Work Phone: [facility] Work Phone: Start: 11-02-2023 End: 11-02-[address] Daron Benton Work Phone: [facility] Work Phone: Start: 11-02-2023 End: 11-02-2023 Dr. Daron Benton Work Phone: [facility] Work Phone: Start: 10-26-2023 End: 10-26-2023 ambulatory TYE BARNETT MD Facility:[facility] Start: 10-22-2023 End: 10-22-[address] Daron Benton Work Phone: [facility] Work Phone: Start: 10-22-2023 End: 10-22-[address] Daron Benton Work Phone: [facility]-Laboratory, Specimen Work Phone: Start: 10-22-2023 End: 10-22-2023 Dr. Daron Benton Work Phone: [facility]-Laboratory, Specimen Work Phone: Start: 10-22-2023 End: 10-22-[address] Daron Benton Work Phone: [facility] Orthopaedic Specia Work Phone: Start: 10-22-2023 End: 10-22-2023 Dr. Daron Benton Work Phone: [facility] Work Phone: Start: 10-05-2023 End: 10-05-2023 Office outpatient visit 40 minutes Kristopher Main MD Work Phone: [facility] Comment on above: Multiple sclerosis ( HCC) (Primary Dx); Cerebrovascular disease, unspecified; Primary hypertension Start: 10-05-2023 Telephone encounter Kristopher baez MD Work Phone: [facility] Comment on above: Orders Start: 10-05-2023 End: 10-05-2023 Emergency department patient visit Dr. Daron Benton Work Phone: [facility]-Emergency Department Work Phone: Start: 10-05-2023 End: 10-05-2023 Dr. Daron Benton Work Phone: [facility]-Emergency Department Work Phone: Start: 09-04-2023 End: 09-04-[address] Daron Benton Work Phone: [facility] Heart [facility] Work Phone: Start: 09-04-2023 End: 09-04-2023 Dr. Daron Benton Work Phone: [facility] Heart [facility] Work Phone: Start: 09-04-2023 End: 09-04-[address] Daron Benton Work Phone: [facility] Work Phone: Start: 09-04-2023 End: 09-04-[address] Daron Benton [facility] Work Phone: Start: 09-04-2023 End: 09-04-2023 Dr. Daron Benton [facility] Work [facility]: Start: 08-21-2023 End: 08-21-[address] Daron Benton Work Phone: [facility] Start: 08-21-2023 End: 08-21-2023 Dr. Daron Benton Work Phone: [facility] Start: 07-26-2023 End: 07-26-[address] Daron Benton Work Phone: [facility] Work Phone: Start: 07-26-2023 End: 07-26-[address] Daron Benton [facility] Work Phone: Start: 06-15-2023 Refill Kristopher Main MD Work Phone: [facility] Comment on above: Multiple sclerosis ( HCC) Start: 06-04-2023 Telephone encounter Kristopher baez MD Work Phone: [facility] Comment on above: Med Refill Start: 05-24-2023 End: 05-24-[address] Daron Benton Work Phone: [facility] Work Phone: Start: 05-10-2023 Refill Kristopher Main MD Work Phone: [facility] Start: 04-26-2023 End: 04-26-[address] Daron Benton Work Phone: [facility] Work Phone: Start: 04-26-2023 End: 04-26-[address] Daron Benton Work Phone: [facility] Start: 04-25-2023 End: 04-25-[address] Daron Benton Work Phone: [facility] Start: 04-14-2023 End: 04-14-[address] Daron Benton Work Phone: [facility] Work Phone: Start: 04-14-2023 End: 04-14-[address] Daron Benton Work Phone: [facility] Start: 04-10-2023 End: 04-10-[address] Daron Benton Work Phone: [facility] Work Phone: Start: 04-10-2023 End: 04-10-[address] Daron Benton Work Phone[facility] Start: 04-08-2023 End: 04-08-2023 Emergency department patient visit Dr. Daron Benton Work Phone: [facility]-Emergency Department Start: 04-02-2023 End: 04-02-[address] Daron Benton Work Phone: [facility] Start: 03-31-2023 End: 03-31-2023 Emergency department patient visit Dr. Daron Benton Work Phone: [facility]-Emergency Department Start: 03-20-2023 End: 03-20-[address] Daron Benton Work Phone: [facility] Work Phone: Start: 03-20-2023 End: 03-20-[address] Daron Benton Work Phone[facility] Start: 03-16-2023 End: 03-16-2023 Emergency department patient visit Dr. Daron Benton Work Phone: [facility]-Emergency Department Start: 02-01-2023 End: 02-01-[address] Daron Benton Work Phone: [facility] Work Phone: Start: 02-01-2023 End: 02-01-[address] Daron Benton Work Phone: [facility]-Outpatient Bone Densitometry Start: 01-22-2023 End: 01-22-[address] Daron Benton Work Phone: [facility] Start: 12-27-2022 End: 12-27-[address] Daron Benton Work Phone: [facility] Start: 12-20-2022 End: 12-20-[address] Daron Benton Work Phone: [facility] Start: 12-13-2022 End: 12-13-[address] Daron Benton Work Phone: [facility] Start: 12-04-2022 End: 12-04-[address] Daron Benton Work Phone: [facility] Start: 11-24-2022 End: 11-24-2022 Emergency department patient visit Dr. Daron Benton Work Phone: [facility]-Emergency Department Start: 11-21-2022 Non-patient / Non-visit Dr. Sarah Benton Work Phone: [facility] Start: 11-21-2022 End: 11-21-[address] Daron Benton Work Phone: [facility] Work Phone: Start: 11-21-2022 End: 11-21-[address] Daron Benton Work Phone: [facility]-Cardiovascular Services Start: 11-09-2022 End: 11-09-2022 SAME DAY STAY TYE BARNETT MD [facility] Start: 10-26-2022 End: 10-26-[address] Daron Benton Work Phone: [facility] Start: 10-20-2022 End: 10-20-[address] Daron Benton Work Phone: [facility] Start: 10-09-2022 End: 10-09-[address] Daron Benton Work Phone: [facility] Start: 09-26-2022 End: 09-26-2022 ambulatory [facility] Work Phone: Start: 09-26-2022 End: 09-26-2022 [facility] Start: 09-03-2022 Transcribe Orders Kristopher olson MD Work Phone: [facility] Neurology [place] Comment on above: Other specified symp toms and signs involving the circulatory and respiratory systems (Primary Dx); Cerebrovascular disease, unspecified Start: 08-23-2022 End: 08-23-[address] Daron Benton Work Phone: [facility] Work Phone: Start: 08-23-2022 End: 08-23-[address] Daron Benton Work Phone: [facility]-Cardiovascular Services Start: 05-16-2022 End: 05-16-[address] aDron Benton Work Phone: [facility] Start: 05-02-2022 End: 05-02-[address] Daron Benton Work Phone: [facility] Start: 02-22-2022 End: 02-22-[address] Daron Benton Work Phone: [facility] Start: 02-20-2022 End: 02-20-2022 Emergency department patient visit Dr. Daron Benton Work Phone: [facility]-Emergency Department Start: 02-18-2022 End: 02-18-2022 Emergency department patient visit Dr. Daron Benton Work Phone: [facility]-Emergency Department Start: 02-17-2022 End: 02-17-2022 Emergency department patient visit Dr. Daron Benton Work Phone: [facility]-Emergency Department Start: 02-14-2022 End: 02-14-2022 Emergency department patient visit Dr. Daron Benton Work Phone: [facility]-Emergency Department Start: 02-08-2022 End: 02-08-[address] Daron Benton Work Phone: [facility] Start: 01-23-2022 End: 01-23-2022 Emergency department patient visit Dr. Daron Benton Work Phone: [facility]-Emergency Department Start: 01-18-2022 End: 01-18-2022 Admission to same day surgery center Dr. Daron Benton Work Phone: [facility]-Penology Professor/Special Procedures Start: 11-17-[address] Daron Benton Work Phone: [facility] Start: 10-21-2021 End: 10-21-[address] Daron Benton Work Phone: [facility] Start: 08-11-[address] Daron Benton Work Phone: [facility] Start: 08-11-[address] Daron lin MD Work Phone: [facility] Start: 11-25-2020 End: 11-25-2020 Subsequent hospital visit by physician [facility] Work Phone: Radiology Comment on above: [...] 06-17-2025 Mean corpuscular hemoglobin concentration determination Dr. Daorn Benton MD Work Phone: Start: 06-17-2025 Nucleated [...] Phone: Start: 04-18-[address] Darno Benton MD Work Phone: Start: 04-18-2025 Total [...] in stool specimen using immunoassay Dr. Daron eBnton Work Phone: Start: 02-19-2024 Dr. Daron Benton [...] Benton Work Phone: Start: 11-15-2023 Dr. Daron Bentno Work Phone: Start: 11-15-2023 Plain chest X-ray [...] Radiologic exam chest 2 views Paloma Thompson APRN.GAS ENGINE REPAIRER Work Phone: Start: 04-19-2016 Lipid 1996 panel - Serum or Plasma Kristopher Main MD Work Phone: Start: 01-20-2016 Colonoscopy Xr [place] Work Phone: Start: 12-08-2011 Lipid 1996 panel [...] DTaP/Tdap/Td Vaccines (3 - Td or Tdap) [facility] Start: 02-09-2031 Urine microalbumin profile DTaP,Tdap,Td Vaccine (3 - Td or Tdap) [facility] Start: 2029 RSV Vaccine (1 - 1-dose 75+ series) RSV Vaccine (1 - 1-dose 75+ series) [facility] Start: 10-20-2025 End: 10-20-2025 Patient encounter procedure 10/20/2025 2:20 PM EST Office Visit [facility] [address] [place] [address] Kristopher Main MD [address] [place] [address] [facility] Start: 08-05-2025 [facility] Start: 08-05-2025 End: 08-05-2025 Evaluation of diagnostic study results [facility] Start: 08-01-2025 [facility] Start: 07-31-2025 [facility] Start: 07-23-2025 [facility] Start: 07-20-2025 COVID-19 Vaccine ( season) COVID-19 Vaccine ( season) [facility] Start: 07-20-2025 Influenza vaccination [facility] Start: 07-05-2025 [facility] Start: 06-09-2025 Patient discharge [facility] Start: 06-08-2025 Referral for physical therapy [facility] Start: 06-08-2025 Referral to occupational therapist [facility] Start: 06-08-2025 Referral to service [facility] Start: 06-05-2025 Referral to service [facility] Start: 06-05-2025 Following clinical pathway protocol [facility] Start: 06-05-2025 Oxygen therapy [facility] Start: 06-05-2025 Administration of blood product [facility] Start: 06-04-2025 Following clinical pathway protocol [facility] Start: 06-04-2025 Application of intermittent pneumatic compression device [facility] Start: 06-03-2025 [facility] Start: 06-03-2025 End: 06-03-2025 Patient encounter procedure 06/03/2025 12:30 PM EDT Office Visit [facility] [address] [place] [phone] Lizz Lynn APRN - CNP [address] [place] [phone] [facility] Start: 06-03-2025 End: 06-03-2025 [facility] Start: 06-03-2025 Following clinical pathway protocol [facility] Start: 06-03-2025 Ambulation without limitation [facility] Start: 06-03-2025 Assessment of risk of venous thromboembolism [facility] Start: 06-03-2025 Elevation of affected extremity [facility] Start: 06-03-2025 Inhalation therapy procedure [facility] Start: 06-03-2025 Insertion of catheter into peripheral vein [facility] Start: 06-03-2025 Measuring intake and output [place] Start: 06-03-2025 Notification of physician [facility] Start: 06-03-2025 Patient education [facility] Start: 06-03-2025 Providing care according to standard [facility] Start: 06-03-2025 Referral to gastroenterology service [facility] Start: 06-03-2025 Administration of blood product [facility] Start: 06-03-2025 Verification routine [facility] Start: 06-03-2025 Hospital admission, emergency, from emergency room, medical nature [facility] Start: 06-03-2025 Admission procedure [facility] Start: 06-03-2025 Leukocyte reduced red blood cells [facility] Start: 06-03-2025 Administration of blood product [facility] Start: 06-03-2025 Patient referral to dietitian [facility] Start: 05-19-2025 [facility] Start: 04-22-2025 Patient discharge [facility] Start: 04-21-2025 [facility] Start: 04-20-2025 Insertion of nasogastric tube [facility] Start: 04-20-2025 [facility] Start: 04-20-2025 End: 04-20-2025 [facility] Start: 04-20-2025 Referral to service [facility] Start: 04-19-2025 Referral to gastroenterology service [facility] Start: 04-19-2025 Administration of blood product [facility] Start: 04-18-2025 Application of intermittent pneumatic compression device [facility] Start: 04-18-2025 Ambulation without limitation [facility] Start: 04-18-2025 Assessment of risk of venous thromboembolism [facility] Start: 04-18-2025 Insertion of catheter into peripheral vein [facility] Start: 04-18-2025 Providing care according to standard [facility] Start: 04-18-2025 [facility] Start: 04-18-2025 Following clinical pathway protocol [facility] Start: 04-18-2025 Verification routine [facility] Start: 04-18-2025 Admission procedure [facility] Start: 04-18-2025 Hospital admission, emergency, from emergency room, medical nature [facility] Start: 04-18-2025 End: 04-19-2025 [facility] Start: 04-18-2025 [facility] Start: 04-18-2025 Patient referral to dietitian [facility] Start: 04-17-2025 Emergency dept visit high severity&threat funcj [facility] Start: 04-11-2025 [facility] Start: 04-02-2025 [facility] Start: 03-04-2025 End: 03-04-2026 Cobalamin (Vitamin B12) [Mass/volume] in Serum or Plasma Vitamin B12 Lab Routine Mild cognitive impairment Deficiency of multiple nutrient elements Expected: 03/04/2025 (Approximate), Expires: 03/04/2026 [facility] Comment on above: Expected: 03/04/2025 (Approximate), Expi res: 03/04/2026 Start: 03-04-2025 End: 03-04-2026 Electroencephalogram EEG Neurology Routine Mild cognitive impairment Expected: 03/04/2025 (Approximate), Expires: 03/04/2026 [facility] Work Phone: Comment on above: Expected: 03/04/2025 (Approximate), Expi res: 03/04/2026 Start: 03-04-2025 End: 03-04-2026 MR Brain WO contrast MR brain wo contrast Imaging Routine Mild cognitive impairment Expected: 03/04/2025, Expires: 03/04/2026 [facility] Comment on above: Expected: 03/04/2025, Expires: Start: 03-04-2025 End: 03-04-2026 Thyrotropin [Units/volume] in Serum or Plasma TSH Lab Routine Mild cognitive impairment Fatigue, unspecified type Expected: 03/04/2025 (Approximate), Expires: 03/04/2026 [facility] Comment on above: Expected: 03/04/2025 (Approximate), Expi res: 03/04/2026 Start: 03-04-2025 End: 03-04-2026 Vitamin B1 ([facility]) Vitamin B1 ([facility]) Lab Routine Mild cognitive impairment Deficiency of multiple nutrient elements Expected: 03/04/2025 (Approximate), Expires: 03/04/2026 [facility] Comment on above: Expected: 03/04/2025 (Approximate), Expi res: 03/04/2026 Start: 03-04-2025 End: 03-04-2026 Vitamin B6 Vitamin B6 Lab Routine Mild cognitive impairment Deficiency of multiple nutrient elements Expected: 03/04/2025 (Approximate), Expires: 03/04/2026 [facility] Comment on above: Expected: 03/04/2025 (Approximate), Expi res: 03/04/2026 Start: 01-13-2025 Patient discharge [facility] Start: 01-11-2025 Following clinical pathway protocol [facility] Start: 01-11-2025 Assessment of risk of venous thromboembolism [facility] Start: 01-11-2025 Fall prevention [facility] Start: 01-11-2025 Inhalation therapy procedure [facility] Start: 01-11-2025 Insertion of catheter into peripheral vein [facility] Start: 01-11-2025 Introduction of urinary catheter [facility] Start: 01-11-2025 Measuring intake and output [place] Start: 01-11-2025 Oxygen therapy [facility] Start: 01-11-2025 Providing care according to standard [facility] Start: 01-11-2025 Provision of activity privileges [facility] Start: 01-11-2025 Referral to scrap shear operator [facility] Start: 01-11-2025 Referral to occupational therapist [facility] Start: 01-11-2025 Referral to service [facility] Start: 01-11-2025 Tobacco use cessation education [facility] Start: 01-11-2025 [facility] Start: 01-11-2025 Patient referral to dietitian [facility] Start: 01-10-2025 Admission procedure [facility] Start: 12-17-2024 [facility] Start: 12-11-2024 Patient discharge [facility] Start: 12-10-2024 Cardiac monitoring [facility] Start: 12-10-2024 Notification of physician [facility] Start: 12-10-2024 Oxygen therapy [facility] Start: 12-10-2024 Patient discharge [facility] Start: 12-10-2024 Patient education [facility] Start: 12-10-2024 Provision of activity privileges [facility] Start: 12-10-2024 Pulse taking [facility] Start: 12-10-2024 Systemic arterial pressure monitoring [facility] Start: 12-10-2024 Taking patient vital signs [facility] Start: 12-10-2024 Vascular disease risk assessment [facility] Start: 12-10-2024 Vital signs measurements [facility] Start: 12-10-2024 Wound care [facility] Start: 12-10-2024 [facility] Start: 12-09-2024 Referral to scrap shear operator [facility] Start: 12-09-2024 Following clinical pathway protocol [facility] Start: 12-09-2024 Assessment of risk of venous thromboembolism [facility] Start: 12-09-2024 Insertion of catheter into peripheral vein [facility] Start: 12-09-2024 Measuring intake and output [place] Start: 12-09-2024 Oxygen therapy [facility] Start: 12-09-2024 Providing care according to standard [facility] Start: 12-09-2024 Provision of activity privileges [facility] Start: 12-09-2024 Referral to occupational therapist [facility] Start: 12-09-2024 Referral to service [facility] Start: 12-09-2024 Tobacco use cessation education [facility] Start: 12-09-2024 [facility] Start: 12-09-2024 Admission procedure [facility] Start: 12-09-2024 Patient referral to dietitian [facility] Start: 12-08-2024 End: 12-08-2024 Patient encounter procedure 12/08/2024 11:30 AM EST [facility] [address] [place] [id number] Mamta Wood APRN - CNP [address] [place] [address] [facility] Start: 11-19-2024 Medicare Advantage Annual Wellness Visit Medicare Advantage Annual Wellness Visit [facility] Start: 07-20-2024 Covid-19 Vaccine ( season) Covid-19 Vaccine () [facility] Start: 07-20-2024 COVID-19 Vaccine ( season) COVID-19 Vaccine () [facility] Start: 07-20-2024 Influenza vaccination Influenza Vaccine (#1) [facility] Start: 04-04-2024 Creatinine measurement Creatinine Level [facility] Start: 04-04-2024 Potassium measurement Potassium Level [facility] Start: 02-25-2024 Patient discharge [facility] Start: 02-23-2024 End: 02-24-2024 [facility] Start: 02-22-2024 End: 02-22-2024 Administration of blood product [facility] Start: 02-22-2024 Transfusion of red blood cells [facility] Start: 02-22-2024 Referral to service [facility] Start: 02-22-2024 Blood chemistry [facility] Start: 02-22-2024 [facility] Start: 02-21-2024 Oxygen therapy [facility] Start: 02-21-2024 Blood chemistry [facility] Start: 02-21-2024 End: 02-22-2024 [facility] Start: 02-20-2024 Referral to occupational therapist [facility] Start: 02-20-2024 Referral to service [facility] Start: 02-20-2024 [facility] Start: 02-20-2024 Blood chemistry [facility] Start: 02-20-2024 End: 02-20-2024 [facility] Start: 02-19-2024 [facility] Start: 02-19-2024 Following clinical pathway protocol [facility] Start: 02-19-2024 Ambulation without limitation [facility] Start: 02-19-2024 Assessment of risk of venous thromboembolism [facility] Start: 02-19-2024 Elevation of head of bed [facility] Start: 02-19-2024 Inhalation therapy procedure [facility] Start: 02-19-2024 Insertion of catheter into peripheral vein [facility] Start: 02-19-2024 Measuring intake and output [place] Start: 02-19-2024 Patient education [facility] Start: 02-19-2024 Providing care according to standard [facility] Start: 02-19-2024 Referral to gastroenterology service [facility] Start: 02-19-2024 End: 02-19-2024 [facility] Start: 02-19-2024 End: 02-19-2024 [facility] Start: 02-19-2024 Bacteria identified in Sputum by Culture [facility] Start: 02-19-2024 Legionella pneumophila Ag [Presence] in Urine [facility] Start: 02-19-2024 Streptococcus pneumoniae antigen assay [facility] Start: 02-19-2024 Verification routine [facility] Start: 02-19-2024 Admission procedure [facility] Start: 02-19-2024 End: 02-19-2024 Blood culture [facility] Start: 02-19-2024 [facility] Start: 02-19-2024 Administration of blood product [facility] Start: 02-19-2024 End: 02-20-2024 [facility] Start: 01-25-2024 End: 01-25-2024 Patient encounter procedure 01/25/2024 12:30 PM EST Office Visit [facility] [address] [place] [phone] Lizz Lynn APRN - GAS ENGINE REPAIRER [address] [place] [phone] [facility] Start: 01-18-2024 [facility] Start: 01-11-2024 [facility] Start: 01-11-2024 [facility] Start: 12-07-2023 Patient discharge [facility] Start: 12-07-2023 Referral to service [facility] Start: 12-06-2023 Care planning and problem solving actions [facility] Start: 12-05-2023 [facility] Start: 12-04-2023 End: 12-05-2023 [facility] Start: 12-04-2023 Following clinical pathway protocol [facility] Start: 12-03-2023 End: 12-04-2023 [facility] Start: 12-03-2023 Care planning and problem solving actions [facility] Start: 12-03-2023 Care planning and problem solving actions [facility] Start: 12-03-2023 Speech therapy assessment [facility] Start: 12-03-2023 Inhalation therapy procedure [facility] Start: 12-02-2023 [facility] Start: 12-02-2023 Providing care according to standard [facility] Start: 12-02-2023 Ambulation without limitation [facility] Start: 12-02-2023 Assessment of risk of venous thromboembolism [facility] Start: 12-02-2023 Insertion of catheter into peripheral vein [facility] Start: 12-02-2023 Measuring intake and output [place] Start: 12-02-2023 Oxygen therapy [facility] Start: 12-02-2023 Providing care according to standard [facility] Start: 12-02-2023 Referral to occupational therapist [facility] Start: 12-02-2023 Referral to service [facility] Start: 12-02-2023 Telemedicine consultation with patient [facility] Start: 12-02-2023 [facility] Start: 12-02-2023 Blood culture [facility] Start: 12-02-2023 Verification routine [facility] Start: 12-02-2023 Hospital admission, emergency, from emergency room, medical nature [facility] Start: 12-02-2023 Admission procedure [facility] Start: 12-02-2023 [facility] Start: 12-02-2023 End: 12-02-2023 [facility] Start: 12-02-2023 [facility] Start: 11-27-2023 [facility] Start: 11-27-2023 Oxygen therapy [facility] Start: 11-27-2023 [facility] Start: 11-26-2023 [facility] Start: 11-21-2023 Patient discharge [facility] Start: 11-19-2023 Advance Directive Discussion Advance Directive Discussion [facility] Start: 11-19-2023 Medicare Advantage Annual Wellness Visit Medicare Advantage Annual Wellness Visit [facility] Start: 11-18-2023 Application of intermittent pneumatic compression device [facility] Start: 11-18-2023 Provision of activity privileges [facility] Start: 11-18-2023 Assessment of risk of venous thromboembolism [facility] Start: 11-18-2023 Fall prevention [facility] Start: 11-18-2023 Insertion of catheter into peripheral vein [facility] Start: 11-18-2023 Introduction of urinary catheter [facility] Start: 11-18-2023 Measuring intake and output [place] Start: 11-18-2023 Providing care according to standard [facility] Start: 11-18-2023 Referral to occupational therapist [facility] Start: 11-18-2023 Referral to service [facility] Start: 11-18-2023 [facility] Start: 11-18-2023 Following clinical pathway protocol [facility] Start: 11-18-2023 Admission procedure [facility] Start: 11-16-2023 Patient discharge [facility] Start: 11-16-2023 Plain chest X-ray Chest 1 View (Portable) [facility] Start: 11-16-2023 XR Chest Single view [facility] Start: 11-16-2023 [facility] Start: 11-15-2023 Respiratory secretion precautions [facility] Start: 11-15-2023 Following clinical pathway protocol [facility] Start: 11-15-2023 Aspiration precautions [facility] Start: 11-15-2023 Assessment of risk of venous thromboembolism [facility] Start: 11-15-2023 Fall prevention [facility] Start: 11-15-2023 Incentive spirometry [facility] Start: 11-15-2023 Inhalation therapy procedure [facility] Start: 11-15-2023 Insertion of catheter into peripheral vein [facility] Start: 11-15-2023 Introduction of urinary catheter [facility] Start: 11-15-2023 Measuring intake and output [place] Start: 11-15-2023 Oxygen therapy [facility] Start: 11-15-2023 Providing care according to standard [facility] Start: 11-15-2023 Provision of activity privileges [facility] Start: 11-15-2023 Referral to occupational therapist [facility] Start: 11-15-2023 Referral to service [facility] Start: 11-15-2023 [facility] Start: 11-15-2023 Verification routine [facility] Start: 11-15-2023 Admission procedure [facility] Start: 11-15-2023 Hospital admission, emergency, from emergency room, medical nature [facility] Start: 11-15-2023 [facility] Start: 11-15-2023 Consultation [facility] Start: 10-05-2023 [facility] Start: 10-05-2023 [facility] Start: 07-20-2023 COVID-19 Vaccine ( season) COVID-19 Vaccine () [facility] Start: 07-20-2023 Influenza vaccination Influenza Vaccine (#1) [facility] Start: 04-08-2023 [facility] Start: 04-04-2023 End: 04-04-2023 Patient encounter procedure 04/04/2023 Office Visit Neurology Kristopher Main MD [address] [place] [address] [facility] [place] Start: 03-31-2023 [facility] Start: 02-01-2023 Dual energy X-ray absorptiometry Dexa Bone Density Study [facility] Start: 02-20-2022 [facility] Work Phone: Start: 10-21-2021 Patient referral [facility] Work Phone: Start: 04-19-2021 Lipid panel Lipid Panel [facility] Start: 01-19-2021 Screening for malignant neoplasm of colon [facility] Start: 2019 Pneumococcal Vaccine: 65+ (2 of 2 - PCV) Pneumococcal Vaccine: 65+ (2 of 2 - PCV) [facility] Start: 2019 Screening for osteoporosis Bone Density Screening [facility] Start: 12-08-2016 Lipid panel Lipid Screening [facility] Start: 08-19-2016 Diabetes Screening Diabetes Screening [facility] Start: 2014 RSV Immunization aged 60 or older (1 - 1-dose 60+ series) RSV Immunization aged 60 or older (1 - 1-dose 60+ series) [facility] Start: 08-21-2014 RSV Immunization for Adults (1 - Risk 60-74 years 1-dose series) RSV Immunization for Adults (1 - Risk 60-74 years 1-dose series) [facility] Start: 08-26-2010 Screening for malignant neoplasm of breast Mammogram Screening [facility] Start: 08-19-2009 Pneumococcal Vaccine: 50+ Years (2 of 2 - PCV) Pneumococcal Vaccine: 50+ Years (2 of 2 - PCV) [facility] Start: 08-19-2009 Pneumococcal Vaccine: 65+ Years (2 - PCV) Pneumococcal Vaccine: 65+ Years (2 - PCV) [facility] Start: 08-19-2009 Pneumococcal Vaccine: 65+ Years (2 of 2 - PCV) Pneumococcal Vaccine: 65+ Years (2 of 2 - PCV) [facility] Start: 2004 Shingrix Vaccine (1 of 2) Shingrix Vaccine (1 of 2) [facility] Start: 2004 Zoster Vaccines (1 of 2) Zoster Vaccines (1 of 2) [facility] Start: 1999 Screening for malignant neoplasm of colon [facility] Start: 1994 Screening for malignant neoplasm of breast Mammogram [facility] Start: 1972 Anxiety Screening Anxiety Screening [facility] Start: 1972 Depression Screening Depression Screening [facility] Start: 1972 Diabetes mellitus screening Diabetes Screening [facility] Start: 1972 Hepatitis C screening Hepatitis C Screening [facility] Start: 1966 Depression Monitoring Depression Monitoring [facility] Start: 1966 Depression Screening Depression Screening [facility] Start: 1954 Echocardiography Echocardiogram [facility] Start: 1954 Hepatitis B Vaccines (1 of 3 - 3-dose series) Hepatitis B Vaccines (1 of 3 - 3-dose series) [facility] Start: 1954 Lipid panel Lipid Panel [facility] Start: 1954 Medicare Advantage Annual Wellness Visit (AWV) Medicare Advantage Annual Wellness Visit (AWV) [facility] Start: 1954 Screening for malignant neoplasm of colon [facility] Start: 1954 Screening for osteoporosis Bone Density Scan [facility] Start: 1954 Thyroid stimulating hormone measurement TSH Level [facility] Alanine aminotransfe rase [Enzymatic activity/volume] in Serum or Plasma [facility] Alanine aminotransfe rase [Enzymatic activity/volume] in Serum or Plasma [facility] Alanine aminotransfe rase [Enzymatic activity/volume] in Serum or Plasma [facility] Albumin [Mass/volume ] in Serum or Plasma [facility] Albumin [Mass/volume ] in Serum or Plasma [facility] Albumin [Mass/volume ] in Serum or Plasma [facility] Albumin/Globulin [Ma ss Ratio] in Serum or Plasma by Electrophoresis [facility] Work Phone: Albumin/Globulin [Ma ss Ratio] in Serum or Plasma by Electrophoresis [facility] Alkaline phosphatase [Enzymatic activity/volume] in Serum or Plasma [facility] Alkaline phosphatase [Enzymatic activity/volume] in Serum or Plasma [facility] Alkaline phosphatase [Enzymatic activity/volume] in Serum or Plasma [facility] Alpha 1 antitrypsin [Mass/volume] in Serum or Plasma [facility] Anion gap measurement [facility] Anion gap measurement [facility] Anion gap measurement [facility] Aspartate aminotrans ferase [Enzymatic activity/volume] in Serum or Plasma [facility] Aspartate aminotrans ferase [Enzymatic activity/volume] in Serum or Plasma [facility] Aspartate aminotrans ferase [Enzymatic activity/volume] in Serum or Plasma [facility] Bacteria identified in Urine by Culture Urine Culture [facility] Bilirubin measurement, urine [facility] Bilirubin measurement, urine [facility] Bilirubin, total measurement [facility] Bilirubin, total measurement [facility] Bilirubin, total measurement [facility] BUN/Creatinine ratio [facility] BUN/Creatinine ratio [facility] BUN/Creatinine ratio [facility] Calcium [Mass/volume ] in Serum or Plasma [facility] Calcium [Mass/volume ] in Serum or Plasma [facility] Calcium [Mass/volume ] in Serum or Plasma [facility] Carbon dioxide, tota l [Moles/volume] in Serum or Plasma [facility] Carbon dioxide, tota l [Moles/volume] in Serum or Plasma [facility] Carbon dioxide, tota l [Moles/volume] in Serum or Plasma [facility] Cardiac event recording [facility] CBC W Auto Different ial panel - Blood [facility] Chloride [Moles/volu me] in Serum or Plasma [facility] Chloride [Moles/volu me] in Serum or Plasma [facility] Chloride [Moles/volu me] in Serum or Plasma [facility] Creatinine [Moles/vo lume] in Serum or Plasma [facility] Creatinine [Moles/vo lume] in Serum or Plasma [facility] Creatinine [Moles/vo lume] in Serum or Plasma [facility] Electrophoresis: albumin [facility] Work Phone: Electrophoresis: albumin [facility] Electrophoresis: [id number] [facility] Work Phone: Electrophoresis: [id number] [facility] Electrophoresis: [id number] [facility] Work Phone: Electrophoresis: [id number] [facility] Electrophoresis: francisco j ma globulin [facility] Work Phone: Electrophoresis: francisco j ma globulin [facility] Globulin measurement [facility] Work Phone: Globulin measurement [facility] Glucose [Mass/volume ] in Serum or Plasma [facility] Glucose [Mass/volume ] in Serum or Plasma [facility] Glucose [Mass/volume ] in Serum or Plasma [facility] Hematocrit [Volume F raction] of Blood [facility] Hematocrit [Volume F raction] of Blood [facility] Hematocrit [Volume F raction] of Blood [facility] Hematocrit [Volume F raction] of Blood [facility] Hemoglobin [Mass/vol ume] in Blood [facility] Hemoglobin [Mass/vol ume] in Blood [facility] Hemoglobin [Mass/vol ume] in Blood [facility] Hemoglobin [Mass/vol ume] in Blood [facility] Hemoglobin [Presence ] in Urine [facility] Hemoglobin [Presence ] in Urine [facility] Measurement of keton es in urine using dipstick [facility] Measurement of keton es in urine using dipick [facility] Measurement of renal function [facility] Measurement of renal function [facility] Measurement of renal function [facility] Microscopic urinalysis [facility] Microscopic urinalysis [facility] NM Heart Views W str ess and W radionuclide IV [facility] Organism count, micr oscopic method [facility] Patient Education [facility] Work Phone: Patient referral [facility] Work Phone: pH of Urine [facility] pH of Urine [facility] Potassium [Moles/vol ume] in Serum or Plasma [facility] Potassium [Moles/vol ume] in Serum or Plasma [facility] Potassium [Moles/vol ume] in Serum or Plasma [facility] Protein electrophore sis panel - Serum or Plasma [facility] Work Phone: Protein electrophore sis panel - Serum or Plasma [facility] Serum protein electrophoresis [facility] Work Phone: Serum protein electrophoresis [facility] Sodium [Moles/volume ] in Serum or Plasma [facility] Sodium [Moles/volume ] in Serum or Plasma [facility] Sodium [Moles/volume ] in Serum or Plasma [facility] Specific gravity of Urine [facility] Specific gravity of Urine [facility] Total globulins measurement [facility] Work Phone: Total globulins measurement [facility] Total protein measurement [facility] Total protein measurement [facility] Total protein measurement [facility] Troponin T.cardiac [Mass/volume] in Serum or Plasma by High sensitivity method [facility] Urea nitrogen [Mass/ volume] in Serum or Plasma [facility] Urea nitrogen [Mass/ volume] in Serum or Plasma [facility] Urea nitrogen [Mass/ volume] in Serum or Plasma [facility] Urinalysis, blood, qualitative [facility] Urine blood test [facility] Urine dipstick for glucose [facility] Urine dipstick for glucose [facility] Urine dipstick for l eukocyte esterase [facility] Urine dipstick for l eukocyte esterase [facility] Urine dipstick for nitrite [facility] Urine dipstick for nitrite [facility] Urine dipstick for protein [facility] Urine dipstick for protein [facility] Urine examination [facility] Urine examination [facility] Urine microscopy: ep ithelial cells [facility] Urine microscopy: ep ithelial cells [facility] Urine Microscopy: wh ite cells [facility] Urobilinogen [Presen ce] in Urine [facility] Urobilinogen [Presen ce] in Urine [facility] US Heart Transesophageal [facility] White blood cell count [facility] Immunizations Immunization Date Immunization Notes Care Provider Catrachito oakes 08-19-2024 influenza, high dose seasonal, preservative-free Dr. Daron Benton MD Work Phone: [facility] 08-19-2024 influenza virus vacc ine, unspecified formulation Lizz Lynn EMBOSSER APPRENTICE - GAS ENGINE REPAIRER Work Phone: [facility] 08-17-2023 Influenza High-Dose Quadrivalent Dr. Daron Benton Work Phone: [facility] 08-17-2023 influenza virus vacc ine, unspecified formulation Mamta Wood EMBOSSER APPRENTICE - GAS ENGINE REPAIRER Work Phone: [facility] 09-16-2022 Covid Pfizer Bivalen t Booster Dr. Daron Benton Work Phone: [facility] 09-16-2022 Influenza High-Dose Quadrivalent Dr. Daron Benton Work Phone: [facility] 09-16-2022 influenza virus vacc ine, unspecified formulation Kristopher Main MD Work Phone: [facility] 05-17-2022 Covid (Moderna) Dr. Daron Scott Work Phone: [facility] 09-21-2021 Covid (Moderna) Dr. Daron Scott Work Phone: [facility] 02-09-2021 tetanus toxoid, redu maya diphtheria toxoid, and acellular pertussis vaccine, adsorbed Dr. Daron Benton Work Phone: [facility] 01-13-2021 Covid (Moderna) Dr. Daron Scott Work Phone: [facility] 12-16-2020 Covid (Moderna) Dr. Daron Scott Work Phone: [facility] 08-13-2019 Influenza, high dose seasonal Dr. Daron Benton MD Work Phone: [facility] 08-13-2019 influenza, high dose seasonal, preservative-free Dr. Daron Benton Work Phone: [facility] 08-13-2019 Dr. Daron Benton MD Work Phone: [facility] 08-13-2019 influenza virus vacc ine, unspecified formulation [facility] [place] Work Phone: [facility] 08-20-2018 influenza, injectabl e, quadrivalent, preservative free Dr. Daron Benton Work Phone: [facility] 07-20-2011 influenza virus vacc ine, unspecified formulation Xr [place] Work Phone: [facility] 09-01-2009 influenza virus vacc ine, unspecified formulation [facility] [place] Work Phone: [facility] 09-18-2008 influenza virus vacc ine, unspecified formulation [facility] [place] Work Phone: [facility] 08-19-2008 pneumococcal polysaccharide vaccine, 23 valent [facility] [place] Work Phone: [facility] 08-23-2006 diphtheria and tetan us toxoids, adsorbed for pediatric use [facility] [place] Work Phone: [facility] Payers Date Payer Category Payer Self-pay [id number] 2022 Medicare HMO [employer] [id number] 2019 Medicaid [employer] MYC[employer] [id number] 2019-Present [phone] [address] [place] [address] Medicaid [id number] 2017 Medicare [id number]. [id number] 2016 Medicare [id number] 2016 Unknown [id number] 1954 Unknown [id number] 2.16.840.1.977988.3.579.2.627 Unknown [id number] 2.16.840.1.779641.3.579.2.462 Unknown [id number] 2.16.840.1.788112.3.579.2.462 Unknown [id number] 2.16.840.1.115533.3.579.2.462 Unknown [id number] 2.16.840.1.618848.3.579.2.462 Unknown [id number] 2.16.840.1.646455.3.579.2.462 Unknown [id number] 2.16.840.1.632365.3.579.2.462 Unknown [id number] 2.16.840.1.286632.3.579.2.462 Unknown [id number] 2.16.840.1.371640.3.579.2.462 Unknown [id number] 2.16.840.1.379200.3.579.2.462 Unknown [id number] 2.16.840.1.024321.3.579.2.462 Unknown [id number] 2.16.840.1.601369.3.579.2.462 Unknown [id number] 2.16.840.1.697399.3.579.2.462 Unknown [id number] 2.16.840.1.619424.3.579.2.462 Unknown [id number] 2.16.840.1.048630.3.579.2.462 Unknown [id number] 2.16.840.1.906824.3.579.2.462 Unknown [id number] 2.16.840.1.484489.3.579.2.462 Unknown [id number] 2.16.840.1.573565.3.579.2.462 Unknown [id number] 2.16.840.1.546097.3.579.2.462 Unknown [id number] 2.16.840.1.122923.3.579.2.462 Unknown [id number] 2.840.1.819959.3.579.2.462 Unknown [id number] 2.840.1.937458.3.579.2.462 Unknown [id number] 2.840.1.833780.3.579.2.462 Unknown [id number] 2.840.1.629762.3.579.2.462 Unknown [id number] 2.840.1.002354.3.579.2.462 Unknown [id number] 2.840.1.781475.3.579.2.462 Unknown [id number] 2.840.1.544490.3.579.2.462 Unknown [id number] 2.16840.1.712482.3.579.2.462 Unknown [id number] 2.16.840.1.808735.3.579.2.462 Unknown [id number] 2.16840.1.776864.3.579.2.462 Unknown [id number] 2.16.840.1.353800.3.579.2.462 Unknown [id number] 2.16.840.1.562223.3.579.2.462 Unknown [id number] 2.16.840.1.434920.3.579.2.462 Unknown [id number] 2.16.840.1.513826.3.579.2.462 Unknown [id number] 2.16.840.1.440313.3.579.2.462 Unknown [id number] 2.16840.1.763428.3.579.2.462 Unknown [id number] 2.16840.1.899748.3.579.2.462 Unknown [id number] 2.840.1.156569.3.579.2.462 Unknown [id number] 2.840.1.754720.3.579.2.462 Unknown [id number] 2.840.1.658460.3.579.2.462 Unknown [id number] 2.840.1.761900.3.579.2.462 Unknown [id number] 2.840.1.294826.3.579.2.462 Unknown [id number] 2.840.1.146881.3.579.2.462 Unknown [id number] 2.16840.1.941266.3.579.2.462 Unknown [id number] 2.840.1.582368.3.579.2.462 Unknown [id number] 2.16840.1.364469.3.579.2.462 Unknown [id number] 2.16840.1.722609.3.579.2.462 Unknown [id number] 2.16840.1.198988.3.579.2.462 Unknown [id number] 2.16.840.1.131930.3.579.2.462 Unknown [id number] 2.16840.1.092074.3.579.2.462 Unknown [id number] 2.16.840.1.815935.3.579.2.462 Unknown [id number] 2.16.840.1.895070.3.579.2.462 Unknown [id number] 2.16.840.1.935619.3.579.2.462 Unknown [id number] 2.16.840.1.131723.3.579.2.462 Unknown [id number] 2.16.840.1.200115.3.579.2.462 Unknown [id number] 2.16.840.1.286299.3.579.2.462 Unknown [id number] 2.16.840.1.473831.3.579.2.462 Unknown [id number] 2.16.840.1.551473.3.579.2.462 Unknown [id number] 2.16.840.1.376458.3.579.2.462 Unknown [id number] 2.16.840.1.477373.3.579.2.462 Unknown [id number] 2.16.840.1.545307.3.579.2.462 Unknown [id number] 2.16.840.1.445731.3.579.2.462 Unknown [id number] 2.16.840.1.887339.3.579.2.462 Unknown [id number] 2.16.840.1.654440.3.579.2.462 Unknown [id number] 2.16.840.1.724669.3.579.2.462 Unknown [id number] 2.16.840.1.224294.3.579.2.462 Unknown [id number] 2.16.840.1.437738.3.579.2.462 Unknown [id number] 2.16.840.1.233358.3.579.2.462 Unknown [id number] 2.16.840.1.942988.3.579.2.462 Unknown [id number] 2.16.840.1.743447.3.579.2.462 Unknown [id number] 2.16840.1.206109.3.579.2.462 Unknown [id number] 2.16.840.1.740984.3.579.2.462 Unknown [id number] 2.840.1.974234.3.579.2.462 Unknown [id number] 2.16840.1.216219.3.579.2.462 Social History Date Type Detail Facility Start: 02-17-2022 End: 02-21-2024 Tobacco smoking status AZIS Unknown if ever smoked [facility] Start: 01-18-2020 Occasional [facility] Start: 01-18-2020 None [facility] Start: 01-29-2020 Alone [facility] Start: 02-09-2021 Cigarettes [facility] Start: 1955 Sex Assigned At Female [facility] Start: 12-08-2016 End: 08-05-2025 Tobacco smoking status AZIS Smokes tobacco daily [facility] History of tobacco use Cigarette Smoker [facility] Start: 04-04-2023 End: 07-23-2025 Alcohol intake Ex-drinker (finding) [facility] Start: 04-04-2023 End: 07-23-2025 History of Social function [facility] Start: 04-04-2023 End: 07-23-2025 Tobacco use panel [facility] Start: 1955 Sex Assigned At Not on file [facility] Start: 12-08-2016 End: 03-04-2025 Tobacco use and exposure Smokeless tobacco non-user [facility] Start: 11-25-2020 Alcoholic beverage intake Not Asked [facility] National Score (1-100), lower number is lower risk Not on file [facility] Start: 10-26-2020 End: 10-05-2022 Exposure to SARS-CoV-2 (event) Not sure [facility] Start: 06-19-2022 Sex Female (finding) [facility] Start: 04-02-2025 End: 04-20-2025 Tobacco smoking status NHIS Current Light tobacco smoker [facility] NEGATED: Highlighted row [facility] NEGATED: Highlighted row [facility] Medical Equipment Procedure Code Equipment Code Equipment Origin al Text Equipment Identifier Dates GDC aneurysm coil FDA Start: 02-03-2014 GDC aneurysm coil FDA Start: 02-03-2014 Protege GFS stent FDA Start: 08-25-2015 ([id number]) [id number] FDA Start: 01-18-2022 GDC aneurysm coil FDA [...] Assessment Result Facility 06-09-2025 Functional status Ambulates [facility] Work Phone: 06-08-2025 Functional status Fair [facility] Work Phone: 04-22-2025 Functional status Ambulates [facility] Work Phone: 01-13-2025 Functional status Standby Assist [facility] Work Phone: 01-13-2025 Functional status Ambulates;Bathroom Priv ilege [facility] Work Phone: 12-11-2024 Functional status Bathroom Privilege [facility] Work Phone: 02-25-2024 Functional status Ambulates [facility] Work Phone: 12-07-2023 Functional status Ambulates;Chair [facility] Work Phone: 11-21-2023 Functional status Ambulates [facility] Work Phone: 11-16-2023 Functional status Ambulates [facility] Work Phone: 11-09-2022 Functional Status Ambulating in room [facility] 11-09-2022 Functional Status [facility] Functional Status Maintained [facility] Mental Status Date Assessment Result Facility 08-05-2025 Cognitive function Awake [facility] Work Phone: 07-31-2025 Cognitive function Awake [facility] Work Phone: 07-22-2025 Cognitive function Awake;Alert;A ppropriate[facility] Work Phone: 07-05-2025 Cognitive function Awake;Alert;A ppropriate;Follo [facility] Work Phone: 06-09-2025 Cognitive function Voice/Name [facility] Work Phone: 06-03-2025 Cognitive function Awake;Alert;A ppropriate;[facility] Work Phone: 05-19-2025 Cognitive function Awake;Alert;A ppropriate;[facility] Work Phone: 04-22-2025 Cognitive function Voice/Name;Touch/Shaki ng [facility] Work Phone: 04-18-2025 Cognitive function Level Of Cons ciousness Awake;Alert;Appropriate;Follo [facility] Work Phone: 04-02-2025 Cognitive function Awake;Appropr iate;Follows Commands;Drowsy [facility] Work Phone: 01-13-2025 Cognitive function Voice/Name [facility] Work Phone: 12-11-2024 Cognitive function Voice/Name [facility] Work Phone: 02-25-2024 Cognitive function Voice/Name [facility] Work Phone: 02-19-2024 Cognitive function Awake;Alert;A ppropriate;[facility] Work Phone: 12-07-2023 Cognitive function Voice/Name [facility] Work Phone: 12-02-2023 Cognitive function Awake;Drowsy [facility] Work Phone: 11-27-2023 Cognitive function Voice/Name [facility] Work Phone: 11-21-2023 Cognitive function Voice/Name [facility] Work Phone: 11-18-2023 Cognitive function Level Of Cons ciousness Awake;Alert;Appropriate;Follo [employer] [facility] Work Phone: 11-16-2023 Cognitive function Voice/Name [facility] Work Phone: 11-15-2023 Cognitive function Level Of Cons ciousness Awake;Alert;Appropriate;Follo [employer] [facility] Work Phone: 10-05-2023 Cognitive function Awake;Alert;A ppropriate;[facility] [employer] [facility] Work Phone: 04-08-2023 Cognitive function Level Of Cons ciousness Awake;Alert;Appropriate [facility] Work Phone: 03-16-2023 Cognitive function Level Of Cons ciousness Awake;Alert;Appropriate;[employer] [employer] [facility] Work Phone: 11-09-2022 Mental Status Orientation Oriented x 4 [facility] 11-09-2022 Mental Status [facility] 11-09-2022 Mental Status [facility] 02-18-2022 Cognitive function Voice/Name [facility] Work Phone: Clinical Notes 11-25-2020 to 07-23-2025 Lizz Lynn APRN - GAS ENGINE REPAIRER - 07/23/2025 12:30 PM EDT Note Date [...] Subjective HPI: REVIEW- 04/12 - ED at [place] for MS flare affective speech, swallowing, VOSS. [...] last night for SBP 200's. Was in assisted for 1 month over June for issues with BP and weakness after having 2 bleeding ulcers and 4 blood transfusions - had PT. She is feeling better since discharge; doing PT at the house. She had MRI brain done at [place] - I do not have the results [...] TSH VITAMIN B12: No results found for: [id number] No results found for: PHENYTOIN, PHENOBARB, VALPROATE, CBMZ No components found for: TOPIRA @RESULTINGLABINFO@ No results found for: LEVETIRACETA, FERRITIN, CRP, DENNIS, ANCA No results found for: CHRISTIANO, IMMUNOGLOBUL, OLIGOBANDS No results found for: [id number], HEPCAB No results found for: CRP, ANATITER, [...] tablet Stable; she had MRI brain at [place] that I do not have access to; [...] history on file. documented in this encounter [facility] 07-23-2025 Radiology Diagnostic study note [facility] 07-22-2025 Discharge summary Note Date/Time July 23, 2025 12:41am [facility] Medical Records Department [address] [place] [address] Emergency Department Summary 07/22/25 MR#: [id number] Acct: [id number] Name: ANGÉLICA YO Rep #:[id number] 9 : 1955 70 From: Ramírez Onofre [...] (dyspnea on exertion) Atherosclerotic heart disease of [place] coronary artery without angina pectoris Cardiac murmur [...] Stomach morphine AdvReac Nausea Verified 07/22/25 21:55 Auyggxg-GYR-JvY Reductase AdvReac Nausea Verified 07/22/25 21:55 Inhibitor (Gmpeaqh-Ahc-Qcj Reductase Inhibitor) Family History Mother Cancer CAD [...] edema or cords. 5 out of 5 senior cyber intelligence analyst strength. Dorsi plantarflexion intact. Neurologic exam she is awake alert. Answer questions following commands. Normal speech. No facial droop. Again normal senior cyber intelligence analyst strength and dorsi plantarflexion. Fingertip to nose [...] impaired, lethargic or stuporous Coordination / Balance: bpjauf-by-dldg test normal Speech: speech normal Motor Exam: [...] 70.7 H Lymph % (Auto) 12.6 L Winn % (Auto) 9.6 Eos % (Auto) 5.0 [...] kcal/mL Liquid 120 ml PO TIDCM Qty: 36930 0RF pantoprazole [Protonix] 40 mg tablet,delayed release [...] as prescribed. Tylenol for pain. Print Language: Austrian Disposition Disposition: Home, Self Care What to do if you have Problems For any increased pain, shortness of breath, bleeding, nausea or vomiting, chestpain, or any unexpected problems, contact your Primary Care Provider. Call [facility] ([phone]) or report to the closest Emergency Room. Call 911 if necessary. 07/23/25 0041 <Electronically signed by Ramírez Onofre MD> Cosigner Signature (if applicable): CC: Dr. Daron Benton MD ~ Signed [facility] Work Phone: 1(647) 849-446609-03-2025 Hospital Discharge instructionsAdditional Instructions Check your blood pressures twice daily over the next 5 to 7 days. Follow-up with your primary care physician if your blood pressures are running reasonably well. Take your medications as prescribed. Tylenol for pain.[facility] Work Phone: 1(294) 937-294908-17-20[address] [facility]07-22-2025 Discharge summary Author Dex Robertsonessentia healthcraig [facility] Note Date/Time June 09, 2025 4:22 pm [facility] Medical Records Department [address] [place] [address] Transfer to [facility] MR#: [id number] Acct: [id number] Name: ANGÉLICA YO Rep #:[id number] 7 : 1955 69 From: Dex Worrell DO PCP: Dr. Daron Benton MD Status:ADM IN Certification of patient admission REQUIRED AT TIME OF ADMISSION. I CERTIFY THAT POST-HOSPITAL ECF SERVICES ARE REQUIRED TO BE GIVEN ON AN IN-PATIENT BASIS BECAUSE OF THE ABOVE NAMED PATIENT'S NEED FOR [facility] CARE ON A CONTINUING BASIS FOR THE CONDITION(S) FOR WHICH HE/SHE WAS RECEIVING IN-PATIENT HOSPITAL SERVICES PRIOR TO HIS/HER TRANSFER TO THE [facility]. 06/09/25 1622<Electronically signed by Dex Worrell DO> [...] patient, she will need temporary placement in [facility] facility for short-term skilledservices #9 gastric ulcer-patient [...] morphine Adverse Reaction (Verified 06/03/25 02:30) Nausea Koxijgj-LKM-AzR Reductase Inhibitor (Mjpfbst-Uvd-Jwe Reductase Inhibitor) Adverse Reaction (Verified 06/03/25 02:30) Nausea Procedures: None Type of Care/Length of Stay Estimated LOS: Convalescent Care Less Than 30 days Type of Care Needed: Skilled Rehab Potential: Fair Prognosis: Fair Additional Orders/Day of Discharge Day of Discharge: 06/09/25 Dietary and Speech Recommendations Dietitian Recommendations/Changes: Continue Regular diet with tkwk-fu-yhkb foods; thin liquids Continue 120ml EPHP TID with medpass. Will continue to monitor weight trends. Discharge Plan Admission Admit Date/Time: 06/03/25 07:37 Primary Reason for Your Visit: Right-sided heart failure, acute anemia Attending Provider: Dex oWrrell Primary Care Provider: Daron Benton Consulting Providers: Roman Mckeon Instructions Additional Instructions / Restrictions: Consider resuming Eliquis 5 mg bid in two weeks if the patient accepts the risk vs the benefits of the medicine Discharge Orders/Prescriptions Prescriptions: New Ensure Plus High Protein 0.08 gram-1.5 kcal/mL Liquid 120 ml PO TIDCM Qty: 44659 0RF pantoprazole [Protonix] 40 mg tablet,delayed release [...] Mckeon MD; Dr. Daron Benton MD ~ [facility] Work Phone: 1(229) 724-797007-22-2025 [facility]07-22-2025 Hospital Discharge instructionsAdditional Instructions Consider resuming Eliquis 5 mg bid in two weeks if the patient accepts the risk vs the benefits of the medicine Date of Discharge: 06/09/25[facility] Work Phone: 1(857) 220-218507-21-2025 Progress note Author Dex Robertsonessentia healthcraig [facility] Note Date/Time June 08, 2025 8:13 pm [facility] Medical Records Department [address] [place] [address] Progress Note - Hospitalist 06/08/251943 MR#: [id number] Acct: [id number] Name: ANGÉLICA YO Rep #:[id number] 4 : 1955 69 From: Dex Worrell DO PCP: Dr. Daron Benton MD Status:ADM IN Location: [place] [address] Reason for Visit Chief Complaint: Bilateral lower [...] 06/03/25 14:52 SB (Rec: 06/03/25 14:52 SB [id number]) Nutrition Malnutrition Evidence of Yes Malnutrition Exists [...] 86.9 H, Lymph % (Auto) 5.5 L, Winn % (Auto) 5.2, Eos % (Auto) 1.4, [...] and left parietal lobes, unchanged. Reading Location: [facility] Chest CT 06/07/25 20:07 IMPRESSION: 1. Interlobular septal thickening with diffuse bronchial wall thickening and consolidation at the posterior lung bases, which may represent some combination of pulmonary edema, atelectasis, and/or infection/inflammation. 2. Moderate right and small left pleural effusions. 3. Enlarged main pulmonary artery suggestive of pulmonary hypertension. 4. Mild thoracic lymphadenopathy is likely reactive. Reading Location: [facility] Physical Exam Const alert and [...] patient, she will need temporary placement in fci facility for short-term skilledservices Total clinical time spent by myself addressing the patient's medical issues, reviewing all of her data, and collaborating with patient's care team: 50 minutes Charges/Coding Visit Charges Inpatient E&M: 33713 Subs Hosp L3 06/08/252012 <Electronically signed by Dex Worrell DO> Cosigner Signature (if applicable): CC: ~ Signed [facility] Work Phone: 1(214) 330-326207-20-[address] [facility]07-20-[address] [facility]07-20-2025 Discharge summary Author Roman Mckeon [facility] Note Date/Time June 07, 2025 11:0 2am [facility] Medical Records Department [address] [place] [address] Discharge Summary 06/07/25 1052 MR#: [id number] Acct: [id number] Name: ANGÉLICA YO Rep #:[id number] 8 : 1955 69 From: Roman Mckeon MD PCP: Dr. Daron Benton MD Status:ADM IN Location: [place] [address] Providers Date of Admission: 06/03/25 Date of Discharge: 06/07/25 Primary Care Physician: Dr. Daron Benton MD Consultations 06/03/25 08:34 Consult: Gastroenterology Routine Consulting Provider: [facility] Reason for Consult: GI bleed EMERGENT [...] Requested for PT OT eval and social welfare research worker to assist with discharge planning. Patient may benefit from going to fci facility Time spent in the patient's overall [...] Document 06/03/25 14:52 SB (Rec: 06/03/25 14:52 [id number]) Nutrition Malnutrition Evidence of Yes Malnutrition Exists [...] kcal/mL Liquid 120 ml PO TIDCM Qty: 42079 0RF pantoprazole [Protonix] 40 mg tablet,delayed release [...] Health Service Charges/Coding Visit Charges Inpatient E&M: 12462 Disch Hosp >30min 06/07/25 1102 <Electronically signed by Roman Mckeon MD> Cosigner Signature (if applicable): CC: Dr. Roman Mckeon MD; Dr. Daron Benton MD~ Signed [facility] Work Phone: 1(677) 993-623707-20-2025 Progress note Author Roman Mckeon [facility] Note Date/Time June 07, 2025 10:1 4am [facility] Medical Records Department [address] [place] [address] Progress Note - Hospitalist 06/07/25 0907 MR#: [id number] Acct: [id number] Name: ANGÉLICA YO Rep #:[id number] 7 : 1955 69 From: Roman Mckeon MD PCP: Dr. Daron Benton MD Status:ADM IN Location: [place] [address] 1 Reason for Visit Chief Complaint: Bilateral [...] 06/03/25 14:52 SB (Rec: 06/03/25 14:52 SB [id number]) Nutrition Malnutrition Evidence of Yes Malnutrition Exists [...] Requested for PT OT eval and social welfare research worker to assist with discharge planning. Patient may benefit from going to fci facility Time spent in the patient's overall evaluation,decision-making process, review of diagnostic data, adjustment of management, discussion with other providers, nursing nursing and ancillary staff involved in patient's care documentation 38 Minutes Charges/Coding Visit Charges Inpatient E&M: 07673 Subs Hosp L2 06/07/25 1014 <Electronically signed by Roman Mckeon MD> Cosigner Signature (if applicable): CC: ~ Signed [facility] Work Phone: 1([phone]) 259-841707-20-2025 [facility]07-19-2025 Progress note Author Roman Mckeon [facility] Note Date/Time June 06, 2025 12:1 5pm [facility] Medical Records Department [address] [place] [address] Progress Note - Hospitalist 06/06/25 1208 MR#: [id number] Acct: [id number] Name: ANGÉLICA YO Rep #:[id number] 6 : 1955 69 From: Roman Mckeon MD PCP: Dr. Daron Benton MD Status:ADM IN Location: [place] [address] Reason for Visit Chief Complaint: Bilateral lower [...] 06/03/25 14:52 SB (Rec: 06/03/25 14:52 SB [id number]) Nutrition Malnutrition Evidence of Yes Malnutrition Exists [...] % (Auto) 65.3, Lymph % (Auto) 19.0, Winn % (Auto) 10.7 H, Eos % (Auto) [...] 40 Minutes Charges/Coding Visit Charges Inpatient E&M: 14371 Subs Hosp L2 06/06/25 1215 <Electronically signed by Roman Mckeon MD> Cosigner Signature (if applicable): CC: ~ Signed [facility] Work Phone: 1(219) 263-544707-18-2025 Consult note Author Zaki Levin [facility] Note Date/Time June 05, 2025 4:09 pm [facility] Medical Records Department [address] [place] [address] Anesthesia Postop Eval II 06/05/25 1609 MR#: [id number] Acct: [id number] Name: ANGÉLICA YO Rep #:[id number] 2 : 1955 69 From: Zaki JOINER PCP: Dr. Daron Benton MD Status:ADM IN Y Race: C Location: [address] Anesthesia Postop Eval I Sum Postop Eval Completion status Anesthesia document: Postop Eval 1 completed: No Anesthesia Postop Eval I Summary Anesthesia Postop Eval I Summary: Anesthesia Postop Eval I: Assessment Summary Airway patent No 06/05/25 16:05 SLOT TAG INSERTER.MDOT Spontaneous unlabored No 06/05/25 16:05 SLOT TAG INSERTER.MDOT respirations Mental status Awake,Calm 06/05/25 16:05 SLOT TAG INSERTER.MDOT nausea No 06/05/25 16:05 SLOT TAG INSERTER.MDOT Vomiting No 06/05/25 16:05 SLOT TAG INSERTER.MDOT Anesthesia Postop Eval I: Fluid Summary Crystalloid volume administer 100 06/05/25 16:05 SLOT TAG INSERTER.MDOT (ml) Colloids volume administered ( ml) Blood [...] Signature: Date CC: ~ Signed [facility] Work Phone: 1(588) 367-295207-18-2025 Consult note Author Zaki Levin [facility] Note Date/Time June 05, 2025 4:05 pm [facility] Medical Records Department [address] [place] [address] Anesthesia Postop Eval I 06/05/251604 MR#: [id number] Acct: [id number] Name: ANGÉLICA YO Rep #:[id number] 7 : 1955 69 From: Zaki Nicholas RNA PCP: Dr. Daron Benton MD Status:ADM IN Y Race: C Location: [place] [address] Anesthesia: Postop Eval I Current Vital Signs [...] NEGAR Vanegasignsarah Signature: Date CC: ~ Signed [facility] Work Phone: 1(856) 590-172107-18-2025 Consult note Author Zaki Levin [facility] Note Date/Time June 05, 2025 3:50 pm [facility] Medical Records Department [address] [facility] [place] [address] Pre-Anesthesia Evaluation 06/05/25 1549 MR#: [id number] Acct: [id number] Name: ANGÉLICA YO Rep #:[id number] 0 : 1955 69 From: Zaki JOINER PCP: Dr. Daron Benton MD Status:ADM IN Y Race: C Location: [place] [address] 41 ASA Classification* ASA Classification ASA Classification: [...] Procedure(s): EGD 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 - director oncology: 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 - director oncology Hx Hospitalization No 04/15/21 11:49 Any Problems [...] take am of surgery PONV PONV - director oncology: PONV - director oncology Female HX of Motion Sickness HX of N/V After Surgery Non-Smoker Duration of Surgery greater than 60 minutes Number of Risk Factors PONV Score Height & Weight Height & Weight: Anesthesia: Height & Weight Height 5 ft 5 in 06/03/25 23:06 Weight: 47 kg 06/05/25 05:10 Body Mass Index (BMI) 17.2 06/05/25 05:10 Respiratory Assessment Respiratory Assessment - director oncology: Respiratory Tract Infection Hx - director oncology Hx Respiratory Tract Infection No 06/03/25 23:05 STOP Sleep Apnea STOP Sleep Apnea - director oncology: STOP Sleep Apnea - director oncology Hx Hypertension Yes 06/03/25 08:49 Hx Sleep [...] Tobacco Use History Tobacco Use History - director oncology: Tobacco Use History - director oncology Tobacco Use Smoking Status Current every day smoker 06/04/25 14:35 Hx Tobacco Use Yes 06/03/25 08:49 Years Smoking 30 06/03/25 08:49 Packs Smoked per Day 0.5 06/03/25 08:49 Smoking Cessation Date was within the last 15 years Hx Smoking Cessation Date Hx Smoking Cessation No 06/03/25 08:49 Counseling Hematologic Medial History Hematologic Hx - director oncology: 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 Hx of Blood Transfusion Yes 06/03/25 08:49 [...] confused, unrespo /Reproduction History /Reproductive History - director oncology: /Reproductive Hx- director oncology Hx Now No 06/03/25 23:05 Gestational Age [...] mls/hr 06/03/25 08:54 06/05/25 13:12 IV Infused .[id number] PRN Infusion Saline Flush Sodium Chloride 250 mls @ 15 mls/hr 06/03/25 08:54 IV .W59N12N PRN Additional IVPB Infusion Sodium Chloride 250 mls @ 15 mls/hr 06/04/25 15:58 IV .[id number] PRN Saline Flush Sodium Chloride 250 mls @ 15 mls/hr 06/04/25 15:58 IV .R07E74A PRN Additional IVPB Infusion Sodium Chloride 250 mls @ 15 mls/hr 06/05/25 08:29 IV .O87B51R PRN Saline Flush Sodium Chloride 250 mls @ 15 mls/hr 06/05/25 08:29 IV .W40Y93S PRN Additional IVPB Infusion Lactated Ringer's 1,000 [...] (dyspnea on exertion) Atherosclerotic heart disease of [place] coronary artery without angina pectoris Cardiac murmur [...] Stomach morphine AdvReac Nausea Verified 06/03/25 02:30 Gmibedx-XJW-KqL Reductase AdvReac Nausea Verified 06/03/25 02:30 Inhibitor (Txepxus-Hck-Ikd Reductase Inhibitor) Family History Mother Cancer CAD [...] Zaki Vanegasigner Signature: Date CC: ~ Signed [facility] Work Phone: 1(987) 631-707607-18-2025 Progress note Author Kevin Gonzalez [facility] Note Date/Time June 05, 2025 3:14 pm [facility] Medical Records Department [address] [place] [address] Progress Note 06/05/25 1512 MR#: [id number] Acct: [id number] Name: ANGÉLICA OY Rep #:[id number] 2 : 1955 69 From: Kevin Gonzalez DO PCP: Dr. Daron Benton MD Status:ADM IN Location: [place] [address] Progress Note Patient has been n.p.o. for [...] ASA of 3. Visit Charges Inpatient E&M: 72156 Subs Hosp L2 06/05/25 2281 <Electronically signed by Kevin Gonzalez DO> Kevin Gonzalez DO Cosign Signature (if applicable): CC: ~ Signed [facility] Work Phone: 1(122) 877-405807-18-[address] [facility] 06-05-[address] [facility]07-18-2025 Progress note Author Roman Mckeon [facility] Note Date/Time June 05, 2025 11:3 1am [facility] Medical Records Department [address] [place] [address] Progress Note - Hospitalist 06/05/25 0749 MR#: [id number] Acct: [id number] Name: ANGÉLICA YO Rep #:[id number] 4 : 1955 69 From: Roman Mckeon MD PCP: Dr. Daron Benton MD Status:ADM IN Location: [place] [address] 1 Reason for Visit Chief Complaint: Bilateral [...] 06/03/25 14:52 SB (Rec: 06/03/25 14:52 SB [id number]) Nutrition Malnutrition Evidence of Yes Malnutrition Exists [...] 76.6 H, Lymph % (Auto) 9.9 L, Winn % (Auto) 10.1 H, Eos % (Auto) [...] and ancillary staff involved in patient's care [id number] Minutes Charges/Coding Visit Charges Inpatient E&M: 50286 Subs Hosp L3 06/05/25 1131 <Electronically signed by Roman Mckeon MD> Cosigner Signature (if applicable): CC: ~ Signed [facility] Work Phone: 1(598) 513-510907-17-2025 Progress note Author Kevin Gonzalez [facility] Note Date/Time June 04, 2025 5:47 pm [facility] Medical Records Department [address] [place] [address] Progress Note 06/04/25 1746 MR#: [id number] Acct: [id number] Name: ANGÉLICA YO Rep #:[id number] 5 : 1955 69 From: Kevin Gonzalez DO PCP: Dr. Daron Benton MD Status:ADM IN Location: [place] [address] Progress Note Patient was supposed to get [...] n.p.o. past midnight. Visit Charges Inpatient E&M: 63083 Init Hosp L3 06/04/251746 <Electronically signed by Kevin Gonzalez DO> Kevin Gonzalez DO Cosigner Signature (if applicable): CC: ~ Signed ADDENDUM by Kvein Gonzalez DO on 06/04/25 at 1747 Visit Charges Inpatient E&M: 85528 Subs Hosp L3 06/04/251746 <Electronically signed by Kevin llanos DO> Date _ Kevin Gonzalez DO Cosigner Signature (if applicable): Date cc: ~* Signed [facility] Work Phone: 1(913) 269-454107-17-2025 Progress note Author Roman Mckeon [facility] Note Date/Time June 04, 2025 8:38 am [facility] Medical Records Department [address] [facility] [place] [address] Progress Note - Hospitalist 06/04/25 0834 MR#: [id number] Acct: [id number] Name: ANGÉLICA YO Rep #:[id number] 3 : 1955 69 From: Roman Mckeon MD PCP: Dr. Daron Benton MD Status:ADM IN Location: [place] [address] Reason for Visit Chief Complaint: Bilateral lower [...] 06/03/25 14:52 SB (Rec: 06/03/25 14:52 SB [id number]) Nutrition Malnutrition Evidence of Yes Malnutrition Exists [...] % (Auto) 68.8, Lymph % (Auto)14.1 L, Winn % (Auto) 12.9 H, Eos % (Auto) [...] and ancillary staff involved in patient's care [id number] Minutes Charges/Coding Visit Charges Inpatient E&M: 64124 Subs Hosp 06/04/25 0838 <Electronically signed by Roman Mckeon MD> Cosigner Signature (if applicable): CC: ~ Signed [facility] Work Phone: 1(453) 697-348507-16-2025 Consult note Author Kevin Gonzalez [facility] Note Date/Time June 03, 2025 4:15 pm [facility] Medical Records Department [address] [place] [address] Consultation - GI 06/03/25 1609 MR#: [id number] Acct: [id number] Name: ANGÉLICA YO Rep #:[id number] 7 : 1955 69 From: Kevin Gonzalez DO PCP: Dr. Daron Benton MD Status:ADM IN Location: [place] [address] HPI Consult Data Date of Consult: 06/03/25 [...] history of CAD and carotid artery disease. [facility] Medical History Hypertensive emergency NSTEMI, initial episode [...] (dyspnea on exertion) Atherosclerotic heart disease of [place] coronary artery without angina pectoris Cardiac murmur [...] mEq/15 mL 20 meq (15 mL) PO AJNE Y 30 days 04/22/25 Unknown Rx oral [...] Stomach morphine AdvReac Nausea Verified 06/03/25 02:30 Msqhrah-CTE-BaI Reductase AdvReac Nausea Verified 06/03/25 02:30 Inhibitor (Tjkajue-Aua-Fhu Reductase Inhibitor) Family History Mother Cancer CAD [...] 06/03/25 14:52 SB (Rec: 06/03/25 14:52 SB [id number]) Nutrition Malnutrition Evidence of Yes Malnutrition Exists [...] (Auto) 69.4, Lymph % (Auto) 13.4 L, Winn % (Auto) 14.0 H, Eos % (Auto) [...] 03:20 IMPRESSION: Small right effusion. Reading Location: [place] [address] Assessment & Plan Assessment/Plan (1) Symptomatic anemia: [...] applicable): CC: Dr. Daron Benton MD~ Signed [facility] Work Phone: 1(776) 788-274107-16-2025 History and physical note Author Roman [facility] Note Date/Time June 03, 2025 9:34 am [facility] Medical Records Department [address] [place] [address] H&P Exam - Hospitalist 06/03/25 0739 MR#: [id number] Acct: [id number] Name: ANGÉLICA YO Rep #:[id number] 3 : 1955 69 From: Roman Mckeon MD PCP: Dr. Daron Benton MD Status:ADM IN Location: [place] [address] HPI - General General Date of Admission: [...] to a monitored bed for further manage [facility] Medical History (Updated 06/03/25 @ 09:01 by [...] (dyspnea on exertion) Atherosclerotic heart disease of [place] coronary artery without angina pectoris Cardiac murmur [...] Stomach morphine AdvReac Nausea Verified 06/03/25 02:30 Ttbfqst-BQR-GpF Reductase AdvReac Nausea Verified 06/03/25 02:30 Inhibitor (Oplbqjr-Gwp-Foj Reductase Inhibitor) Family History Mother Cancer CAD [...] (Auto) 69.4, Lymph % (Auto) 13.4 L, Winn % (Auto) 14.0 H, Eos % (Auto) [...] 03:20 IMPRESSION: Small right effusion. Reading Location: [place] [address] Assessment & Plan Assessment/Plan (1) Anemia: (2) [...] Multi Select Codes Visit Charges Visit Charges: 62230 Init Hosp L3 Hospitalists' Procedures Procedures: 83115 Advncd Care Plan 30 Min 06/03/25 5237 <Electronically signed by Roman Mckeon MD> Cosigner Signature (if applicable): CC: Dr. Roman Mckeon MD; Dr. Daron Benton MD~ Signed [facility] Work Phone: 1(766) 435-967407-16-2025 Discharge summary Author Yasmani Haynes [facility] Note Date/Time June 03, 2025 7:47 am [facility] Medical Records Department [address] [place] [address] Emergency Department Summary 06/03/25 MR#: [id number] Acct: [id number] Name: ANGÉLICA YO Rep #:[id number] 3 : 1955 69 From: Yasmani Haynes [...] the persistent pain comes in for evaluation. [facility] Medical History Hypertensive emergency NSTEMI, initial episode of care Emphysema of lung Smoking greater than 30 pack years New onset atrial fibrillation [place] (dyspnea on exertion) Atherosclerotic heart disease of [place] coronary artery without angina pectoris Cardiac murmur [...] Stomach morphine AdvReac Nausea Verified 06/03/25 02:30 Npxgycm-PFZ-AyR Reductase AdvReac Nausea Verified 06/03/25 02:30 Inhibitor (Fplaotg-Enl-Axi Reductase Inhibitor) Family History Mother Cancer CAD [...] of blood. The case was discussed with pharmaceutical sales representative/Dr. Gonzalez. He states that with her anemia [...] (Auto) 69.4 Lymph % (Auto) 13.4 L Winn % (Auto) 14.0 H Eos % (Auto) [...] 03:20 IMPRESSION: Small right effusion. Reading Location: [facility]- Chest x-ray is interpreted by the emergency medicine physician reveals a small right pleural effusion without acute infiltrate or pneumothorax Management Discussion w/another healthcare provider: Hospitalist and Functional Architect Discharge Plan Triage Chief Complaint: Edema ED Provider: Yasmani Haynes Dx/Rx/DC Orders Clinical Impression: Anemia, Congestive heart failure, Paroxysmal atrial fibrillation, Current use of buttermaker anticoagulation Prescriptions: No Action gabapentin 800 mg [...] MD [Primary Care Provider] - Print Language: Austrian Disposition Disposition: Acute Care Hospital [facility] What to do if you have Problems For any increased pain, shortness of breath, bleeding, nausea or vomiting, chestpain, or any unexpected problems, contact your Primary Care Provider. Call [facility] ([phone]) or report to the closest Emergency Room. Call 911 if necessary. 06/03/25 0747 <Electronically signed by Yasmani Haynes DO> Cosigner Signature (if applicable): CC: Dr. Daron Benton MD ~ Signed [facility] Work Phone: 1(952) 325-562607-16-2025 Radiology [address] [facility]06-27-2025 [address]iology [address] [facility]06-18-2025 Telephone encounter Note* Telephone Encounter - Maeve Marston - 05/06/2025 1:48 PM EDT Faxed New Auth to [facility] @ [phone], Valid 05/06/25 Thru 07/05/25 Brain MRI wo Contrast. [facility]gr[facility]o77-[facility]-3570 Miscellaneous Notes* Telephone Encounter - Maeve Marston - 05/06/2025 1:48 PM EDT Faxed New Auth to [facility] @ [phone], Valid 05/06/25 Thru 07/05/25 Brain MRI wo Contrast. * Telephone Encounter - Madelin Olvera - 05/05/2025 2:39 PM EDT Name of caller: [facility] Contact phone number: [phone] Relationship to Patient: Imaging Provider: Robert Practice: neuro Chief Complaint/Reason for Call: Viki states patients prior auth is expiring and will need a new one for patient schedule MRI on 05/20 @130 fax # [phone]. documented in this encounterSMercy Health St. Charles HospitalKfdznw50-44-2740 Telephone encounter Note* Telephone Encounter - Madelin Olvera - 05/05/2025 2:39 PM EDT Name of caller: [facility] Contact phone number: [phone] Relationship to Patient: Imaging Provider: Robert Practice: neuro Chief Complaint/Reason for Call: Viki states patients prior auth is expiring and will need a new one for patient schedule MRI on 05/20 @130 fax # [phone]. [facility] [id number] Telephone encounter Note* Telephone Encounter - ANTWON Harrington CNP - 04/24/2025 1:24 PM EDT Baclofen 20mg sent to Sp in [place]. [facility] CenterEiwgtd10-95-6743 Miscellaneous Notes* Telephone Encounter - ANTWON Harrington CNP - 04/24/2025 1:24 PM EDT Baclofen 20mg sent to Sp in [place]. * Telephone Encounter - Jeni Crook - 04/24/2025 12:21 PM EDT Name of caller: Angélica Contact phone number: [phone] Relationship to Patient: patient Provider: AURORA Lynn Practice: Neurology Chief Complaint/Reason for Call: Angélica advised that she just got out of the hospital, and she needsher Baclofen script sent in to her [facility] - [place], [place] - [address] [[id number]]. She does not use the [facility] any longer, and she is completely out. Best time of day caller can be reached: any Patient advised that office/PCP has 24-48 business hours to return their call: Yes documented in this encounterSMercy Health St. Charles HospitalMgmdot53-68-8584 Telephone encounter Note* Telephone Encounter - Jeni Crook - 04/24/2025 12:21 PM EDT Name of caller: Angélica Contact phone number: [phone] Relationship to Patient: patient Provider: AURORA Lynn Practice: Neurology Chief Complaint/Reason for Call: Angélica advised that she just got out of the hospital, and she needsher Baclofen script sent in to her [facility] - [place], [place] - [address] [[id number]]. She does not use the [facility] any longer, and she is completely out. Best time of day caller can be reached: any Patient advised that office/PCP has 24-48 business hours to return their call: Yes [facility] CenterWckjzl88-63-4215 Discharge summary Author Roman Mckeon [facility] Note Date/Time April 22, 2025 2:21p [facility] Medical Records Department [address] [facility] [place] [address] Discharge Summary 04/22/25 1411 MR#: [id number] Acct: [id number] Name: ANGÉLICA YO Rep #:[id number] 9 : 1955 69 From: Roman Mckeon MD PCP: Dr. Daron Benton MD Status:ADM IN Location: [facility] PY021-1 Providers Date of Admission: 04/18/25 Primary Care Physician: Dr. Daron Benton MD Consultations 04/19/25 08:12 Consult: Gastroenterology Routine Consulting Provider: [facility] Reason for Consult: GI Bleed EMERGENT [...] Health Service Charges/Coding Visit Charges Inpatient E&M: 30084 Disch Hosp >30min 04/22/25 1421 <Electronically signed by Roman Mckeon MD> Cosigner Signature (if applicable): CC: Dr. Roman Mckeon MD; Dr. Daron Benton MD~ Signed [facility] Work Phone: 1(143) 727-641406-04-2025 Consult note Author Benjamin Cm [facility] Note Date/Time April 22, 2025 1:30p m [facility] Medical Records Department [address] [place] [address] Anesthesia Postop Eval I 04/22/25 1329 MR#: [id number] Acct: [id number] Name: ANGÉLICA YO Rep #:[id number] 3 : 1955 69 From: Benjamin Cm PCP: Dr. Daron Benton MD Status:ADM IN Y Race: C Location: PR3 PR305 -1 Anesthesia: Postop Eval I Current Vital [...] Signature: Date CC: ~ Signed [facility] Work Phone: 1(555) 100-936206-04-2025 Progress note Author Kevin Friend [facility] Note Date/Time April 22, 2025 12:31 pm [facility] Medical Records Department [address] [place] [address] Progress Note 04/22/25 1230 MR#: [id number] Acct: [id number] Name: ANGÉLICA YO Rep #:[id number] 2 : 1955 69 From: Kevin Gonzalez DO PCP: Dr. Daron Benton MD Status:ADM IN Location: [place] [address] Progress Note The patient underwent NG tube [...] ASA of 3. Visit Charges Inpatient E&M: 87519 Subs Hosp L2 04/22/25 1231 <Electronically signed by Kevin Gonzalez DO> Kevin Gonzalez DO Cosigner Signature (if applicable): CC: ~ Signed [facility] Work Phone: 1(992) 246-779006-04-2025 [facility]06-04-[address] [facility]06-04-[address] [facility]06-04-2025 Consult note Author Aime Covarrubias [facility] Note Date/Time April 22, 2025 11:17 am [facility] Medical Records Department [address] [place] [address] Pre-Anesthesia Evaluation 04/22/25 1116 MR#: [id number] Acct: [id number] Name: ANGÉLICA YO Rep #:[id number] 4 : 1955 69 From: Aime Covarrubias MD PCP: Dr. Daron Benton MD Status:ADM IN Y Race: C Location: [place] [address] ASA Classification* ASA Classification ASA Classification: 3 [...] Procedure(s): EGD 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 - director oncology: 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 - director oncology Hx Hospitalization No 04/15/21 11:49 Any Problems [...] take am of surgery PONV PONV - director oncology: PONV - director oncology Female HX of Motion Sickness HX of N/V After Surgery Non-Smoker Duration of Surgery greater than 60 minutes Number of Risk Factors PONV Score Height & Weight Height & Weight: Anesthesia: Height & Weight Height 5 ft 5 in 04/21/25 15:30 Weight: 45.7 kg 04/21/25 15:30 Body Mass Index (BMI) 16.7 04/21/25 15:30 Respiratory Assessment Respiratory Assessment - director oncology: Respiratory Tract Infection Hx - director oncology Hx Respiratory Tract Infection No 02/24/24 23:50 STOP Sleep Apnea STOP Sleep Apnea - director oncology: STOP Sleep Apnea - director oncology Hx Hypertension Yes 04/18/25 21:53 Hx Sleep [...] Tobacco Use History Tobacco Use History - director oncology: Tobacco Use History - director oncology Tobacco Use Smoking Status Light Smoker (<10/day) 04/20/25 21:39 Hx Tobacco Use Yes 04/18/25 21:53 Years Smoking Packs Smoked per Day Smoking Cessation Date was within the last 15 years Hx Smoking Cessation Date Hx Smoking Cessation No 04/18/25 21:53 Counseling Hematologic Medial History Hematologic Hx - director oncology: 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 Hx of Blood Transfusion Yes 04/18/25 21:53 [...] confused, unrespo /Reproduction History /Reproductive History - director oncology: /Reproductive Hx- director oncology Hx Now Gestational Age (in weeks): EDC: [...] Capsule (5,000 Units) PO Not Given DAILY [facility] Docusate Sodium 100 mg 04/18/25 22:00 04/22/25 [...] mls @ 15 mls/hr 04/18/25 21:41 IV .[id number] PRN Saline Flush Sodium Chloride 250 mls @ 15 mls/hr 04/18/25 21:41 IV .[id number] PRN Additional IVPB Infusion Pantoprazole Sodium 40 mg/ 100 mls @ 330 mls/hr 04/18/25 21:57 04/22/25 09:55 Sodium Chloride IV 330 mls/hr Q24 VIMAL Administration Lactated Ringer's 1,000 mls @ 15 mls/hr 04/20/25 13:00 04/21/25 15:37 IV 15 mls/hr .Q48H VIMAL Administration Lactated Ringer's 1,000 mls @ 15 mls/hr 04/22/25 11:15 IV .Q48H VIMAL Ipratropium [place] 2 spray 04/19/25 07:17 Ipratropium [place] 0.06% Nasal [place] NASAL TID PRN allergy symptoms Levothyroxine Sodium 50 mcg 04/19/25 06:00 04/22/25 05:14 Levothyroxine 50 Mcg Tablet PO Not Given DAILY@0600 [facility] Nutritional Formula (Lactose Free) 120 ml 04/19/25 08:00 04/22/25 07:18 Ensure Clear 120 Ml Liquid PO Not Given TIDCM [facility] Oxycodone HCl 10 mg 04/19/25 07:19 04/22/25 [...] (dyspnea on exertion) Atherosclerotic heart disease of [place] coronary artery without angina pectoris Cardiac murmur [...] Stomach morphine AdvReac Nausea Verified 04/18/25 18:19 Wuiluou-IWK-LlV Reductase AdvReac Nausea Verified 04/18/25 18:19 Inhibitor (Qanruog-Xit-Vdl Reductase Inhibitor) Family History Mother Cancer CAD [...] Signature: Date CC: ~ Signed [facility] Work Phone: 1(846) 586-572906-04-2025 Progress note Author Roman Mckeon [facility] Note Date/Time April 22, 2025 8:32a m [facility] Medical Records Department [address] [place] [address] Progress Note - Hospitalist 04/22/25 0713 MR#: [id number] Acct: [id number] Name: ANGÉLICA YO Rep #:[id number] 0 : 1955 69 From: Roman Mckeon MD PCP: Dr. Daron Benton MD Status:ADM IN Location: [address] Reason for Visit Reason for Visit: [...] pain regimen Charges/Coding Visit Charges Inpatient E&M: 41009 Subs Hosp L2 04/22/25 0832 <Electronically signed by Roman Mckeon MD> Cosigner Signature (if applicable): CC: ~ Signed [facility] Work Phone: 1(441) 267-414106-03-2025 Consult note Author Zaki Levin [facility] Note Date/Time April 21, 2025 5:01p m [facility] Medical Records Department [address] [place] [address] Anesthesia Postop Eval II 04/21/25 1700 MR#: [id number] Acct: [id number] Name: ANGÉLICA YO Rep #:[id number] 2 : 1955 69 From: Zaki JOINER PCP: Dr. Daron Benton MD Status:ADM IN Y Race: C Location: MS3 MS305 -1 Anesthesia Postop Eval I Sum Postop Eval Completion status Anesthesia document: Postop Eval 1 completed: Yes Anesthesia Postop Eval I Summary Anesthesia Postop Eval I Summary: Anesthesia Postop Eval I: Assessment Summary Airway patent Yes 04/21/25 16:57 SLOT TAG [email or web address].MDOT Spontaneous unlabored Yes 04/21/25 16:57 SLOT TAG INSERTER.MDOT respirations Mental status Awake,Calm 04/21/25 16:57 SLOT TAG INSERTER.MDOT nausea No 04/21/25 16:57 SLOT TAG INSERTER.MDOT Vomiting No 04/21/25 16:57 SLOT TAG INSERTER.MDOT Anesthesia Postop Eval I: Fluid Summary Crystalloid volume administer 100 04/21/25 16:57 SLOT TAG INSERTER.MDOT (ml) Colloids volume administered ( ml) Blood Product volume administered (ml) Total IV fluid infused 100 04/21/25 16:57 SLOT TAG INSERTER.MDOT Anesthesia Postop Eval I: Summary Notes Anesthesia Complication No 04/21/25 16:57 SLOT TAG INSERTER.MDOT Anesthesia Complication Comment: Post-operative progress note Anesthesia: Postop Eval II Evaluation Mental status: Awake and Calm Pain Level: 0 nausea: No Vomiting: No Complications Anesthesia Complication: No 04/21/25 1701 <Electronically signed by Zaki Levin CRNA> Date _ Zaki Levin CRNA Cosigner Signature: Date CC: ~ Signed [facility] Work Phone: 1(903) 961-807006-03-2025 Consult note Author Zaki Levin [facility] Note Date/Time April 21, 2025 4:57p [facility] Medical Records Department [address] [place] [address] Anesthesia Postop Eval I 04/21/25 1656 MR#: [id number] Acct: [id number] Name: ANGÉLICA YO Rep #:[id number] 8 : 1955 69 From: Zaki JOINER PCP: Dr. Daron Benton MD Status:ADM IN Y Race: C Location: [place] [address] Anesthesia: Postop Eval I Current Vital Signs [...] document: Postop Eval 1 completed: Yes 04/21/25 6392 <Electronically signed by Zaki Levin CRNA> Date _ Zaki Levin CRNA Cosigner Signature: Date CC: ~ Signed [facility] Work Phone: 1(176) 184-737206-03-2025 Progress note Author Kevin Friend [facility] Note Date/Time April 21, 2025 4:16p m [facility] Medical Records Department [address] [place] [address] Progress Note 04/21/25 1615 MR#: [id number] Acct: [id number] Name: ANGÉLICA YO Rep #:[id number] 8 : 1955 69 From: Kevin Gonzalez DO PCP: Dr. Daron Benton MD Status:ADM IN Location: [place] [address] Progress Note Patient is n.p.o. for EGD [...] prep is complete. Visit Charges Inpatient E&M: 45265 Subs Hosp L3 04/21/25 1616 <Electronically signed by Kevin Gonzalez DO> Kevin Gonzalez DO Cosigner Signature (if applicable): CC: ~ Signed [facility] Work Phone: 1(366) 660-522806-03-2025 Consult note Author Storm Gómez [facility] Note Date/Time April 21, 2025 3:54p m [facility] Medical Records Department [address] [place] [address] Pre-Anesthesia Evaluation 04/21/25 1549 MR#: [id number] Acct: [id number] Name: ANGÉLICA YO Rep #:[id number] 7 : 1955 69 From: Storm Gómez MD PCP: Dr. Daron Benton MD Status:ADM IN Y Race: C Location: [place] [address] ASA Classification* ASA Classification ASA Classification: 3 [...] Procedure(s): EGD 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 - director oncology: 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 - director oncology Hx Hospitalization No 04/15/21 11:49 Any Problems [...] take am of surgery PONV PONV - director oncology: PONV - director oncology Female HX of Motion Sickness HX of N/V After Surgery Non-Smoker Duration of Surgery greater than 60 minutes Number of Risk Factors PONV Score Height & Weight Height & Weight: Anesthesia: Height & Weight Height 5 ft 5 in 04/21/25 15:30 Weight: 45.7 kg 04/21/25 15:30 Body Mass Index (BMI) 16.7 04/21/25 15:30 Respiratory Assessment Respiratory Assessment - director oncology: Respiratory Tract Infection Hx - director oncology Hx Respiratory Tract Infection No 02/24/24 23:50 STOP Sleep Apnea STOP Sleep Apnea - director oncology: STOP Sleep Apnea - director oncology Hx Hypertension Yes 04/18/25 21:53 Hx Sleep [...] Tobacco Use History Tobacco Use History - director oncology: Tobacco Use History - director oncology Tobacco Use Smoking Status Light Smoker (<10/day) 04/20/25 21:39 Hx Tobacco Use Yes 04/18/25 21:53 Years Smoking Packs Smoked per Day Smoking Cessation Date was within the last 15 years Hx Smoking Cessation Date Hx Smoking Cessation No 04/18/25 21:53 Counseling Hematologic Medial History Hematologic Hx - director oncology: 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 Hx of Blood Transfusion Yes 04/18/25 21:53 [...] confused, unrespo /Reproduction History /Reproductive History - director oncology: /Reproductive Hx- director oncology Hx Now Gestational Age (in weeks): EDC: [...] mls @ 15 mls/hr 04/18/25 21:41 IV .[id number] PRN Saline Flush Sodium Chloride 250 mls @ 15 mls/hr 04/18/25 21:41 IV .[id number] PRN Additional IVPB Infusion Pantoprazole Sodium 40 mg/ 100 mls @ 330 mls/hr 04/18/25 21:57 04/21/25 10:40 Sodium Chloride IV Infused Q24 VIMAL Infusion Lactated Ringer's 1,000 mls @ 15 mls/hr 04/20/25 13:00 04/21/25 15:37 IV 15 mls/hr .Q48H VIMAL Administration Ipratropium [place] 2 spray 04/19/25 07:17 Ipratropium [place] 0.06% Nasal [place] NASAL TID PRN allergy symptoms Levothyroxine Sodium 50 mcg 04/19/25 06:00 04/21/25 05:56 Levothyroxine 50 Mcg Tablet PO Not Given DAILY@0600 [facility] Nutritional Formula (Lactose Free) 120 ml 04/19/25 08:00 04/21/25 10:20 Ensure Clear 120 Ml Liquid PO Not Given TIDCM [facility] Oxycodone HCl 10 mg 04/19/25 07:19 04/21/25 [...] (dyspnea on exertion) Atherosclerotic heart disease of [place] coronary artery without angina pectoris Cardiac murmur [...] Stomach morphine AdvReac Nausea Verified 04/18/25 18:19 Ucpcrxb-AXD-LcY Reductase AdvReac Nausea Verified 04/18/25 18:19 Inhibitor (Ajeagkn-Dni-Itx Reductase Inhibitor) Family History Mother Cancer CAD [...] Signature: Date CC: ~ Signed [facility] Work Phone: 1(236) 234-959606-03-[address] [facility] 04-21-[address] [facility]06-03-2025 Progress note Author Roman Mckeon [facility] Note Date/Time April 21, 2025 8:22a m [facility] Medical Records Department [address] [place] [address] Progress Note - Hospitalist 04/21/25 0727 MR#: [id number] Acct: [id number] Name: ANGÉLICA YO Rep #:[id number] 2 : 1955 69 From: Roman Mckeon MD PCP: Dr. Daron Benton MD Status:ADM IN Location: [place] [address]-1 Reason for Visit Reason for Visit: Diagnoses [...] evidence for acute brain abnormality. Reading Location: [place] [address] Physical Exam Narrative GENERAL: cooperative HEENT: Atraumatic; [...] pain regimen Charges/Coding Visit Charges Inpatient E&M: 91934 Subs Hosp L2 04/21/25 0822 <Electronically signed by Roman Mckeon MD> Cosigner Signature (if applicable): CC: ~ Signed [facility] Work Phone: 1(843) 322-265106-03-2025 Progress note Author Sommer Resendiz [facility] Note Date/Time April 21, 2025 1:33a m [facility] Medical Records Department [address] [place] [address] Progress Note - Hospitalist 04/21/2540 MR#: [id number] Acct: [id number] Name: ANGÉLICA YO Rep #:[id number] 3 : 1955 69 From: Sommer Resendiz MD PCP: Dr. Daron Benton MD Status:ADM IN Location: [facility] YP688-1 Hospitalist Note Patient with unwitnessed mechanical fall, [...] (if applicable): cc: ~* Signed [facility] Work Phone: 1(126) 398-220406-03-2025 Rad[address] [facility]06-02-2025 Consult note Author Aime Covarrubias [facility] Note Date/Time April 20, 2025 4:08p m [facility] Medical Records Department [address] [facility] [place] [address] Anesthesia Postop Eval II 04/20/25 1608 MR#: [id number] Acct: [id number] Name: ANGÉLICA YO Rep #:[id number] 0 : 1955 69 From: Aime Covarrubias MD PCP: Dr. Daron Benton MD Status:ADM IN Y Race: C Location: [facility] MS305 -1 Anesthesia Postop Eval I Sum Postop Eval Completion status Anesthesia document: Postop Eval 1 completed: Yes Anesthesia Postop Eval I Summary Anesthesia Postop Eval I Summary: Anesthesia Postop Eval I: Assessment Summary Airway patent Yes 04/20/25 13:53 SLOT TAG INSERTER.JDEF Spontaneous unlabored Yes 04/20/25 13:53 SLOT TAG INSERTER.JDEF respirations Mental status Awake 04/20/25 13:53 SLOT TAG INSERTER.JDEF nausea No 04/20/25 13:53 SLOT TAG INSERTER.JDEF Vomiting No 04/20/25 13:53 SLOT TAG INSERTER.JDEF Anesthesia Postop Eval I: Fluid Summary Crystalloid volume administer 500 04/20/25 13:53 SLOT TAG INSERTER.JDEF (ml) Colloids volume administered ( ml) Blood Product volume administered (ml) Total IV fluid infused 500 04/20/25 13:53 SLOT TAG INSERTER.JDEF Anesthesia Postop Eval I: Summary Notes Anesthesia Complication No 04/20/25 13:53 SLOT TAG INSERTER.JDEF Anesthesia Complication Comment: Post-operative progress note Anesthesia: Postop Eval II Evaluation Mental status: Awake Pain Level: 0 nausea: No Vomiting: No Complications Anesthesia Complication: No 04/20/25 1608 <Electronically signed by Aime Covarrubias MD> Date _ Aime Covarrubias MD Cosigner Signature: Date CC: ~ Signed [facility] Work Phone: 1(802) 275-538506-02-2025 Consult note Author Meliza Rea [facility] Note Date/Time April 20, 2025 1:53p [facility] Medical Records Department [address] [place] [address] Anesthesia Postop Eval I 04/20/25 1352 MR#: [id number] Acct: [id number] Name: ANGÉLICA YO Rep #:[id number] 8 : 1955 69 From: Meliza Rea CRNA PCP: Dr. Daron Benton MD Status:ADM IN Y Race: C Location: [place] [address] Anesthesia: Postop Eval I Current Vital Signs [...] 04/20/25 1353 <Electronically signed by Meliza mansfield SLOT TAG INSERTER> Date _ Meliza Rea SLOT TAG INSERTER Cosigner Signature: Date CC: ~ Signed [facility] Work Phone: 1(198) 936-900206-02-2025 Consult note Author Aime Covarrubias [facility] Note Date/Time April 20, 2025 1:21p [facility] Medical Records Department [address] [place] [address] Pre-Anesthesia Evaluation 04/20/25 1313 MR#: [id number] Acct: [id number] Name: ANGÉLICA YO Rep #:[id number] 8 : 1955 69 From: Aime Covarrubias [...] Procedure(s): EGD 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 - director oncology: 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 - director oncology Hx Hospitalization No 04/15/21 11:49 Any Problems [...] take am of surgery PONV PONV - director oncology: PONV - director oncology Female HX of Motion Sickness HX of N/V After Surgery Non-Smoker Duration of Surgery greater than 60 minutes Number of Risk Factors PONV Score Height & Weight Height & Weight: Anesthesia: Height & Weight Height 5 ft 5 in 04/19/25 10:28 Weight: 45.7 kg 04/19/25 10:28 Body Mass Index (BMI) 16.7 04/18/25 21:50 Respiratory Assessment Respiratory Assessment - director oncology: Respiratory Tract Infection Hx - director oncology Hx Respiratory Tract Infection No 02/24/24 23:50 STOP Sleep Apnea STOP Sleep Apnea - director oncology: STOP Sleep Apnea - director oncology Hx Hypertension Yes 04/18/25 21:53 Hx Sleep [...] Tobacco Use History Tobacco Use History - director oncology: Tobacco Use History - director oncology Tobacco Use Smoking Status Light Smoker (<10/day) 04/18/25 21:53 Hx Tobacco Use Yes 04/18/25 21:53 Years Smoking Packs Smoked per Day Smoking Cessation Date was within the last 15 years Hx Smoking Cessation Date Hx Smoking Cessation No 04/18/25 21:53 Counseling Hematologic Medial History Hematologic Hx - director oncology: 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 Hx of Blood Transfusion Yes 04/18/25 21:53 [...] confused, unrespo /Reproduction History /Reproductive History - director oncology: /Reproductive Hx- director oncology Hx Now Gestational Age (in weeks): EDC: [...] mls @ 15 mls/hr 04/18/25 21:41 IV .[id number] PRN Saline Flush Sodium Chloride 250 mls @ 15 mls/hr 04/18/25 21:41 IV .G77X97G PRN Additional IVPB Infusion Pantoprazole Sodium 40 mg/ 100 mls @ 330 mls/hr 04/18/25 21:57 04/20/25 09:59 Sodium Chloride IV 330 mls/hr Q24 VIMAL Administration Lactated Ringer's 1,000 mls @ 15 mls/hr 04/20/25 13:00 04/20/25 12:59 IV 15 mls/hr .Q48H VIMAL Administration Ipratropium [place] 2 spray 04/19/25 07:17 Ipratropium [place] 0.06% Nasal [place] NASAL TID PRN allergy symptoms Levothyroxine Sodium [...] (dyspnea on exertion) Atherosclerotic heart disease of [place] coronary artery without angina pectoris Cardiac murmur [...] Stomach morphine AdvReac Nausea Verified 04/18/25 18:19 Ippeddz-UOY-BkE Reductase AdvReac Nausea Verified 04/18/25 18:19 Inhibitor (Bszaukp-Kjh-Jon Reductase Inhibitor) Family History Mother Cancer CAD [...] Signature: Date CC: ~ Signed [facility] Work Phone: 1(704) 240-115106-02-2025 Progress note Author Kevin Friend [facility] Note Date/Time April 20, 2025 1:19p m [facility] Medical Records Department [address] [place] [address] Progress Note 04/20/25 1318 MR#: [id number] Acct: [id number] Name: CHRISTINANGÉLICA RAE Rep #:[id number] 2 : 1955 69 From: Kevin Gonzalez DO PCP: Dr. Daron Benton MD Status:ADM IN Location: [place] [address] Progress Note Patient has been n.p.o. for [...] ASA of 3. Visit Charges Inpatient E&M: 34650 Subs Hosp L2 04/20/25 1319 <Electronically signed by Kevin Gonzalez DO> Kevin Gonzalez DO Cosigner Signature (if applicable): CC: ~ Signed [facility] Work Phone: 1(409) 245-847006-02-[address] [facility] 04-20-[address] [facility]06-02-2025 Progress note Author Roman Mckeon [facility] Note Date/Time April 20, 2025 7:32a m [facility] Medical Records Department [address] [place] [address] Progress Note - Hospitalist 04/20/25 0728 MR#: [id number] Acct: [id number] Name: ANGÉLICA YO Rep #:[id number] : 1955 69 From: Roman Mckeon MD PCP: Dr. Daron Benton MD Status:ADM IN Location: [place] [address] Reason for Visit Reason for Visit: Diagnoses [...] 74.9 H, Lymph % (Auto) 11.1 L, Winn % (Auto) 11.3 H, Eos % (Auto) [...] pain regimen Charges/Coding Visit Charges Inpatient E&M: 73125 Subs Hosp L2 04/20/25 0732 <Electronically signed by Roman Mckeon MD> Cosigner Signature (if applicable): CC: ~ Signed [facility] Work Phone: 1(614) 912-211506-01-2025 Progress note Author Roman Mckeon [facility] Note Date/Time April 19, 2025 8:12a m [facility] Medical Records Department [address] [facility] [place] [address] Progress Note - Hospitalist 04/19/2510 MR#: [id number] Acct: [id number] Name: ANGÉLICA YO Rep #:[id number] 2 : 1955 69 From: Roman Mckeon MD PCP: Dr. Daron Benton MD Status:ADM IN Location: [address] Reason for Visit Reason for Visit: [...] (Auto) 79.5 H, Lymph % (Auto)9.5 L, Winn % (Auto) 9.4, Eos % (Auto) 0.5, [...] documentation, 52Minutes Charges/Coding Visit Charges Inpatient E&M: 37971 Subs Hosp L3 04/19/25 0812 <Electronically signed by Roman Mckeon MD> Cosigner Signature (if applicable): CC: ~ Signed [facility] Work Phone: 1(646) 275-118506-01-2025 History and physical note Author Sachin Murillo [facility] Note Date/Time April 19, 2025 12:52 am [facility] Medical Records Department [address] [place] [address] H&P Exam - Hospitalist 04/18/252126 MR#: [id number] Acct: [id number] Name: ANGÉLICA YO Rep #:[id number] 5 : 1955 69 From: Sachin chan MD PCP: Dr. Daron Benton MD Status:ADM IN Location: MS3 [id number] HPI - General General Date of Admission: [...] lightheadedness or dizziness, no nausea or vomiting. [facility] Medical History Hypertensive emergency NSTEMI, initial episode of care Emphysema of lung Smoking greater than 30 pack years New onset atrial fibrillation TOLEDO (dyspnea on exertion) Atherosclerotic heart disease of [place] coronary artery without angina pectoris Cardiac murmur [...] Stomach morphine AdvReac Nausea Verified 04/18/25 18:19 Mjgjsxm-EJC-GeB Reductase AdvReac Nausea Verified 04/18/25 18:19 Inhibitor (Rlndswl-Vap-Hkk Reductase Inhibitor) Family History Mother Cancer CAD [...] (Auto) 79.5 H, Lymph % (Auto)9.5 L, Winn % (Auto) 9.4, Eos % (Auto) 0.5, [...] DVT: SCDs Charges/Coding Visit Charges Inpatient E&M: 91453 Init Hosp L2 04/19/25 0052 <Electronically signed by Sachin Murillo MD> Cosigner Signature (if applicable): CC: Dr. Daron Benton MD; Dr. Sachin Murillo MD~ Signed [facility] Work Phone: 1(138) 704-863106-01-2025 Discharge summary Author Jeffy Willoughby [facility] Note Date/Time April 18, 2025 10:46 pm [facility] Medical Records Department [address] [place] [address] Emergency Department Summary 04/18/25 MR#: [id number] Acct: [id number] Name: ANGÉLICA YO Rep #:[id number] 1 : 1955 69 From: Jeffy Willoughby MD PCP: Dr. Daron eBnton MD Status:ADM IN Location: PR3 [id number] HPI History of Present Illness Chief Complaint: [...] atrial fibrillation on apixaban, hyperlipidemia, non-ST elevation UT, alpha-1 antitrypsin deficiency, mitral valve stenosis, chronic [...] Prior similar symptoms: No Recent Illness/Hospitalization: Yes [facility] Medical History Hypertensive emergency NSTEMI, initial episode of care Emphysema of lung Smoking greater than 30 pack years New onset atrial fibrillation TOLEDO (dyspnea on exertion) Atherosclerotic heart disease of [place] coronary artery without angina pectoris Cardiac murmur [...] Stomach morphine AdvReac Nausea Verified 04/18/25 18:19 Djayazg-CML-EoO Reductase AdvReac Nausea Verified 04/18/25 18:19 Inhibitor (Cipgtkn-Rgw-Tcv Reductase Inhibitor) Family History Mother Cancer CAD [...] 79.5 H Lymph % (Auto) 9.5 L Winn % (Auto) 9.4 Eos % (Auto) 0.5 [...] (Auto) Neut % (Auto) Lymph % (Auto) Winn % (Auto) Eos % (Auto) Baso % [...] follows: Interpretation: Sinus Rhythm (Rate is 68. NH interval is 102 ms. Cures duration 82 ms. QT duration 456 ms. QTc is prolonged at 484 ms. [place] is normal. There is no acute ischemic changes noted.) Management Discussion w/another healthcare provider: Hospitalist (Evening hospitalist was paged. Patient will need admission with further workup. She did not receive blood in the emergency department.) Discharge Plan Dx/Rx/DC Orders Clinical Impression: Acute hypotension, Orthostatic hypotension, Acute on chronic anemia, Microcyticanemia, Signs and symptoms of anemia, Symptomatic anemia, 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 seenon monitoring engineer Disposition Disposition: Acute Care Hospital [facility] Discharge Date/Time: 04/18/25 21:33 What to do if you have Problems For any increased pain, shortness of breath, bleeding, nausea or vomiting, chestpain, or any unexpected problems, contact your Primary Care Provider. Call [facility] ([phone]) or report to the closest Emergency Room. Call 911 if necessary. 04/18/252245 <Electronically signed by Jeffy Willoughby MD> Cosigner Signature (if applicable): CC: Dr. Daron Benton MD ~ Signed [facility] Work Phone: 1(551) 910-675205-31-2025 Evaluation note* Diagnosis Onset Date Resolution Status Admit Date Acute on chronic anemia resolved M ay 2024 9:20pm Microcytic anemia resolved March 9:20pm Orthostatic hypotension resolved M ay 2024 9:20pm Signs and symptoms of anemia resolve d April 18, 2025 9:20pm 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 monitoring engineer resolved April 18, 2025 9 :20pm Symptomatic anemia resolved April 182024 9:20pm Anemia acute May 06 2:10pm Constipation acute May 06, 2 025 2:10pm Anemia acute June 03 7:37am DDD (degenerative disc disease), lumbosacral acute June 03, 2025 7:37am Congestive heart failure resolved June 03, 2025 7:37am Symptomatic anemia resolved May 192024 7:37am [facility] Work Phone: 1(342) 839-860405-31-2025 Evaluation note* Diagnosis Onset Date Resolution Status Admit Date Acute on chronic anemia resolved M ay 2024 9:20pm Microcytic anemia resolved March 9:20pm Orthostatic hypotension resolved M ay 2024 9:20pm Signs and symptoms of anemia resolve d April 18, 2025 9:20pm 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 monitoring engineer resolved April 18, 2025 9 :20pm [...] is of coronary artery chronic July 12:46pm [facility] Work Phone: 1(560) 525-768905-30-2025 Radiology Diagnostic study note [facility] Imaging Services [address] [place] [address] Acute [facility]domen Inc Chest MR#: [id number] Acct: [id number] Name: ANGÉLICA YO Rep #: [id number] 0 : 1955 F 69 From: Garo Bautista MD PCP: Dr. Daron Benton MD Status: REG ER Study:Acute Abdomen Inc Chest Date of Exam: 04/17/25 Exam# [id number] Ordering Dr: Kari Haynes DO PROCEDURE: ACUTE [...] Abdomen Inc Chest IMPRESSION: Constipation. Reading Location: [id number] CC: Dr. Daron Benton MD; Yasmani Haynes DO ~ Direct Service Professional: Signed [facility]05-21-2025 History of Present illness Narrative* Lizz Lynn, ANTWON - GAS ENGINE REPAIRER - 04/08/2025 2:30 PM EDT Visit type: Established Patient Reason for Visit: Follow-up and Multiple Sclerosis (/) Assessment and Plan 1. Multiple sclerosis (HCC) 2. Dysphasia Subjective HPI: Patient phoned in 3 days ago stating MS flare - affecting speech, swallowing, and VOSS. Went to [facility] about 1 week ago; according to [...] typical MS symptoms Received CT scan at [place] that she states was normal REVIEW- MS- [...] TSH VITAMIN B12: No results found for: [id number] No results found for: PHENYTOIN, PHENOBARB, VALPROATE, CBMZ No components found for: TOPIRA @RESULTINGLABINFO@ No results found for: LEVETIRACETA, FERRITIN, CRP, DENNIS, ANCA No results found for: CHRISTIANO, IMMUNOGLOBUL, OLIGOBANDS No results found for: YAG75JN, HEPCAB No results found for: CRP, ANATITER, [...] family history on file. documented in this [facility]05-21-2025 Instructions* Patient Instructions* ANTWON Harrington CNP - 04/08/2025 2:30 PM EDT Please call [place] [phone] to schedule the MRI brain before 05/03/25 - this is when the authorization for the MRI expires documented in this [facility]05-15-2025 Radiology Diagnostic study [facility]05-15-2025 Discharge summary Author Nuno Grider [facility] Note Date/Time April 02, 2025 11:43 pm [facility] Medical Records Department [address] [place] [address] Emergency Department Summary 04/02/25 MR#: [id number] Acct: [id number] Name: ANGÉLICA YO Rep #:[id number] 9 : 1955 69 From: Nuno Grider [...] She denies any exacerbating or alleviating factors. [facility] Medical History Hypertensive emergency NSTEMI, initial episode of care Emphysema of lung Smoking greater than 30 pack years New onset atrial fibrillation TOL[place]O (dyspnea on exertion) Atherosclerotic heart disease of [place] coronary artery without angina pectoris Cardiac murmur [...] Stomach morphine AdvReac Nausea Verified 04/02/25 19:26 Pbqzyvy-RVZ-XcT Reductase AdvReac Nausea Verified 04/02/25 19:26 Inhibitor (Lldsrrv-Njj-Dth Reductase Inhibitor) Family History Mother Cancer CAD [...] by him. Once again, Idiscussed with her elje-ng-oyjh if she would like to be observed, [...] 80.4 H Lymph % (Auto) 10.5 L Winn % (Auto) 6.6 Eos % (Auto) 1.5 [...] fever, new or worsening symptoms. Print Language: Austrian Disposition Disposition: Home, Self Care What to do if you have Problems For any increased pain, shortness of breath, bleeding, nausea or vomiting, chestpain, or any unexpected problems, contact your Primary Care Provider. Call [facility] ([phone]) or report to the closest Emergency Room. Call 911 if necessary. 04/02/25 4138 <Electronically signed by Nuno Grider MD> Cosigner Signature (if applicable): CC: Dr. Daron Benton MD ~ Signed [facility] Work Phone: 1(679) 558-803605-15-2025 Hospital Discharge instructions Additional Instructions Follow-up with your neurologist within the next 1 to 2 days. Return with increased weakness, fever, new or worsening symptoms.[facility] Work Phone: 1(677) 822-111604-21-2025 Telephone encounter Note* Telephone Encounter - Maeve Jacobson - 03/09/2025 11:40 AM EDT Order re faxed to [phone] [facility]. [facility]ys[facility]26-40-1831 Miscellaneous Notes* Telephone Encounter - Maeve Marston - 03/09/2025 11:40 AM EDT Order re faxed to [phone] [facility]. * Telephone Encounter - Maria Antonia Kelly - 03/09/2025 11:11 AM EDT Name of caller: Kody Contact phone number: [phone] Relationship to Patient: [facility] Provider: AURORA Lynn Practice: [facility] Neurology Nena Chief Complaint/Reason for Call: Kody called in requesting patient's MRI order be faxed over to them at fax # [phone]. Please be advised Best time of day caller can be reached: Any Patient advised that office/PCP has 24-48 business hours to return their call: N/A documented in this [facility]04-21-2025 Telephone encounter Note* Telephone Encounter - Maria Antonia Kelly - 03/09/2025 11:11 AM EDT Name of caller: Kody Contact phone number: [phone] Relationship to Patient: [facility] Provider: AURORA Lynn Practice: [facility] Neurology Nena Chief Complaint/Reason for Call: Kody called in requesting patient's MRI order be faxed over to them at fax # [phone]. Please be advised Best time of day caller can be reached: Any Patient advised that office/PCP has 24-48 business hours to return their call: N/A [facility] CenterDygdyf67-10-7549 History of Present illness Narrative* Lizz Lynn, EMBOSSER APPRENTICE - GAS ENGINE REPAIRER - 03/04/2025 10:30 AM EDT Visit type: [...] TSH VITAMIN B12: No results found for: BHLFCYZF84 No results found for: PHENYTOIN, PHENOBARB, VALPROATE, CBMZ No components found for: TOPIRA @RESULTINGLABINFO@ No results found for: LEVETIRACETA, FERRITIN, CRP, DENNIS, ANCA No results found for: CHRISTIANO, IMMUNOGLOBUL, OLIGOBANDS No results found for: LAW57IR, HEPCAB No results found for: CRP, ANATITER, ANCA FERRITIN: No results found for: FERRITIN ---- ECG 12 lead SINUS BRADYCARDIA PROBABLE LEFT ATRIAL ABNORMALITY No previous ECG available for comparison Electronically Signed On 04-05-2023 7:42:10 EDT by Juvenal Benton @[facility]@ IMPRESSION and PLAN: Problem List Items [...] on @TDNR@ at @NOWNR@ documented in this [facility]04-04-2025 Evaluation note* Diagnosis Onset Date Resolution [...] 18, 2025 9:20pm 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 monitoring engineer resolved April 18, 2025 9 :20pm Symptomatic anemia resolved April 182024 9:20pm Anemia acute May 06 2:10pm Constipation acute May 06, 025 2:10pm [facility] Work Phone: 1(439) 949-788104-04-2025 Evaluation note* Diagnosis Onset Date Resolution Status [...] 18, 2025 9:20pm 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 monitoring engineer resolved April 18, 2025 9 :20pm Symptomatic anemia resolved April 182024 9:20pm Anemia acute May 06 2:10pm Constipation acute May 06, 2 025 2:10pm Anemia acute June 03 7:37am Congestive heart failure acute June 03, 2025 7:37am DDD (degenerative disc disease), lumbosacral acute June 03, 2025 7:37am Symptomatic anemia resolved May 192024 7:37am [facility] Work Phone: 1(710) 436-680602-25-2025 [facility]02-23-2025 Evaluation note* Diagnosis Onset Date Resolution Status Admit Date Atherosclerotic heart diseas e of [place] coronary artery without angina pectoris inactive January [...] 18, 2025 9:20pm 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 monitoring engineer resolved April 18, 2025 9 :20pm Symptomatic anemia resolved April 182024 9:20pm [facility] Work Phone: 1(552) 615-253602-05-2025 Evaluation note* Diagnosis Onset Date Resolution Status Admit Date Wuajn-6-zyusjyjtlea deficien cy carrier acute December 24 1:52pm Hypoxemia chronic December 24, 2024 1:52pm Emphysema of lung inactive 2024 1:52pm Nicotine dependence, cigarettes, uncomplicated inactive 2024 1:52pm Smoking greater than 30 pack years inactive December 24 1:52pm Atherosclerotic heart diseas e of [place] coronary artery without angina pectoris inactive January [...] 18, 2025 9:20pm 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 monitoring engineer acute April 18, 2025 9 :20pm Symptomatic anemia acute April 182024 9:20pm Acute on chronic anemia chronic ay 2024 9:20pm [facility] Work Phone: 1(976) 816-569101-31-2025 Evaluation note* Diagnosis Onset Date Resolution Status Admit Date Mitral stenosis acute November 212024 1:16pm Bilateral carotid artery stenosis chronic December 19 1:16pm Essential (primary) hypertension inactive December 19 1:16pm PAF (paroxysmal atrial fibrillation) inactive December 19 1:16pm Peripheral vascular occlusiv e disease inactive December 19 1:16pm Wsach-6-wtasabatjil deficien cy carrier acute December 24 1:52pm Hypoxemia chronic December 24, 2024 1:52pm Emphysema of lung inactive 2024 1:52pm Nicotine dependence, cigarettes, uncomplicated inactive 2024 1:52pm Smoking greater than 30 pack years inactive December 24 1:52pm Atherosclerotic heart diseas e of [place] coronary artery without angina pectoris inactive January [...] inactive February 20, 2025 1:14pm [facility] Work Phone: 1(342) 376-206301-31-2025 Evaluation note* Diagnosis Onset Date Resolution Status Admit Date Mitral stenosis acute November 212024 1:16pm Bilateral carotid artery stenosis chronic December 19 1:16pm Essential (primary) hypertension inactive December 19 1:16pm PAF (paroxysmal atrial fibrillation) inactive December 19 1:16pm Peripheral vascular occlusiv e disease inactive December 19 1:16pm Vrzzy-4-hwcnfrfdjby deficien cy carrier acute December 24 1:52pm Hypoxemia chronic December 24, 2024 1:52pm Emphysema of lung inactive 2024 1:52pm Nicotine dependence, cigarettes, uncomplicated inactive 2024 1:52pm Smoking greater than 30 pack years inactive December 24 1:52pm Atherosclerotic heart diseas e of [place] coronary artery without angina pectoris inactive January [...] 18, 2025 9:19pm 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 monitoring engineer acute April 18, 2025 9 :19pm Symptomatic anemia acute April 182024 9:19pm Acute on chronic anemia chronic M 2024 9:19pm [facility] Work Phone: 1(860) 721-101101-23-2025 [facility]01-21-2025 Evaluation note* Diagnosis Onset Date Resolution Status Admit Date Chest pain inactive December 09, 2024 2:32pm Chronic low back pain inactive Nov 2:32pm Diastolic [facility]:32[facility] Elevated troponin inactive December 09, 2024 2:32pm Nicotine dependence, cigarettes, uncomplicated inactive 2024 2:32pm Mitral stenosis acute November 212024 1:16pm Bilateral carotid artery stenosis chronic December 19 1:16pm Essential (primary) hypertension inactive December 19 1:16pm PAF (paroxysmal atrial fibrillation) inactive December 19 1:16pm Peripheral vascular occlusiv e disease inactive December 19 1:16pm Cnbvw-3-zxrndddszwe deficien cy carrier acute December 24 1:52pm Hypoxemia chronic December 24, 2024 1:52pm Emphysema of lung inactive 2024 1:52pm Nicotine dependence, cigarettes, uncomplicated inactive 2024 1:52pm Smoking greater than 30 pack years inactive December 24 1:52pm Atherosclerotic heart diseas e of [place] coronary artery without angina pectoris inactive January [...] inactive February 20, 2025 1:14pm [facility] Work Phone: 1(235) 221-191601-02-2025 Telephone encounter Note* Telephone Encounter - Linda [...] tab): 09/15/24 Updated/Validated preferred pharmacy: [id number] Patient instructed to contact the pharmacy prior to picking up the medication: Yes [facility]01-02-2025 Miscellaneous Notes* Telephone Encounter - Linda Renard [...] tab): 09/15/24 Updated/Validated preferred [facility]: [id number] - [place], [place] - [address] [facility] Patient instructed to contact the pharmacy prior to picking up the medication: Yes * Telephone Encounter - Nallely Zaragoza MA - 11/20/2024 2:22 PM EST Last ov-12/14/23 Next ov- N/A documented in this [facility]01-02-2025 Telephone encounter Note* Telephone Encounter - Nallely Zaragoza MA - 11/20/2024 2:22 PM EST Last -12/14/23 Next ov- N/A [facility] CenterCkakrs72-85-8703 Telephone encounter Note* Telephone Encounter - Yanely Kwon MA - 09/15/2024 6:47 AM EDT Last - 12/14/23 Next ov- n/a [facility] CenterIayctl46-79-0135 Miscellaneous Notes* Telephone Encounter - Yanely Kwon MA - 09/15/2024 6:47 AM EDT Last - 12/14/23 Next ov- n/a documented in this [facility]04-08-2024 Discharge summary Author Eva Mortensen [facility] February 25, 2024 4:04pm Note Date/Time February 25, 2024 3:34 pm [facility] Medical Records Department [address] [place] [address] Discharge Summary 02/25/24 1529 MR#: [id number] Acct: [id number] Name: ANGÉLICA YO Rep #:[id number] 0 : 1955 68 From: Eva Mortensen DO PCP: Dr. Daron Benton MD Status:ADM IN Location: [facility] [id number] Providers Date of Admission: 02/19/24 Date of Discharge: 02/25/24 Primary Care Physician: Dr. Daron Benton MD Consultations 02/19/24 16:58 Consult: Gastroenterology Routine Consulting Provider: [facility] Reason for Consult: GI bleed EMERGENT [...] to the emergency department at [facility] on 02/19/2024 with lightheadedness. She does [...] (Auto) 68.4, Lymph % (Auto) 16.3 L, Winn % (Auto) 11.3 H, Eos % (Auto) [...] Health Service Charges/Coding Visit Charges Inpatient E&M: 64811 Disch Hosp >30min 02/25/24 1557 <Electronically signed [...] Mortensen, DO; Kevin Gonzalez, DO ~* Signed [facility] Work Phone: 1(874) 608-182004-08-[address] [facility] 02-25-[address] [facility]04-07-2024 Progress note Author Roman Mckeon [facility] February 24, 2024 8:37am Note Date/Time February 24, 2024 8:07 am [facility] Medical Records Department [address] [place] [address] Progress Note - Hospitalist 02/24/24805 MR#: [id number] Acct: [id number] Name: ANGÉLICA YO Rep #:[id number] 6 : 1955 68 From: Roman Mckeon MD PCP: Dr. Daron Benton MD Status:ADM IN Location: [place] [address] Reason for Visit Reason for Visit: Diagnoses [...] (Auto) 69.1, Lymph % (Auto) 15.5 L, Winn % (Auto) 11.4 H, Eos % (Auto) [...] (Auto) 79.0 H, Lymph % (Auto)8.2 L, Winn % (Auto) 10.2 H, Eos % (Auto) [...] 19:44 EDT Reading Location ID and State: [facility] / [place] , Service support , Physical Exam Narrative [...] 35 Minutes Charges/Coding Visit Charges Inpatient E&M: 40493 Subs Hosp L2 02/24/24 0837 <Electronically signed by Roman Mckeon MD> Cosigner Signature (if applicable): CC: ~ Signed [facility] Work Phone: 1(503) 721-183904-06-2024 Progress note Author Kevin Gonzalez [facility] February 23, 2024 4:20pm Note Date/Time February 23, 2024 4:20 pm [facility] Medical Records Department [address] [facility] [place] [address] Progress Note - GI 02/23/24 1619 MR#: [id number] Acct: [id number] Name: ANGÉLICA YO Rep #:[id number] 3 : 1955 68 From: Kevin Gonzalez DO PCP: Dr. Daron Benton MD Status:ADM IN Location: [place] [address] Subjective Subjective Patient does not have any [...] (Auto) 69.1, Lymph % (Auto) 15.5 L, Winn % (Auto) 11.4 H, Eos % (Auto) [...] on Sunday. Charges/Coding Visit Charges Inpatient E&M: 36249 Subs Hosp L3 02/23/24 1620 <Electronically signed by Kevin Friend DO> Cosigner Signature (if applicable): CC: ~ Signed [facility] Work Phone: 1(735) 388-510504-06-2024 Progress note Author Roman Mckeon [facility] February 23, 2024 9:04am Note Date/Time February 23, 2024 8:20 am [facility] Medical Records Department [facility] [place] [address] Progress Note - Hospitalist 02/23/24819 MR#: [id number] Acct: [id number] Name: ANGÉLICA YO Rep #:[id number] 2 : 1955 68 From: Roman Mckeon MD PCP: Dr. Daron Benton MD Status:ADM IN Location: [place] [address] Reason for Visit Reason for Visit: Diagnoses [...] 38 Minutes Charges/Coding Visit Charges Inpatient E&M: 87259 Subs Hosp L2 02/23/24 0904 <Electronically signed by Roman Mckeon MD> Cosigner Signature (if applicable): CC: ~ Signed [facility] Work Phone: 1(696) 688-657004-05-2024 Progress note Author Kevin Gonzalez [facility] February 22, 2024 5:55pm Note Date/Time February 22, 2024 5:55 pm [facility] Medical Records Department [address] [place] [address] Progress Note - GI 02/22/24 1753 MR#: [id number] Acct: [id number] Name: ANGÉLICA YO Rep #:[id number] 8 : 1955 68 From: Kevin Gonzalez DO PCP: Dr. Daron Benton MD Status:ADM IN Location: [place] [address] Subjective Subjective Patient is still very lethargic [...] (Auto) 68.8, Lymph % (Auto) 14.2 L, Winn % (Auto) 12.5 H, Eos % (Auto) [...] and lethargy. Charges/Coding Visit Charges Inpatient E&M: 25002 Subs Hosp L3 02/22/24 1755 <Electronically signed by Kevin Friend DO> Cosigner Signature (if applicable): CC: ~ Signed [facility] Work Phone: 1(515) 531-391004-05-2024 Progress note Author Roman Mckeon [facility] February 22, 2024 9:50am Note Date/Time February 22, 2024 7:36 am [facility] Medical Records Department [address] [place] [address] Progress Note - Hospitalist 02/22/24 0736 MR#: [id number] Acct: [id number] Name: ANGÉLICA YO Rep #:[id number] 0 : 1955 68 From: Roman Mckeon MD PCP: Dr. Daron Benton MD Status:ADM IN Location: [place] [address] Reason for Visit Reason for Visit: Diagnoses [...] 52 Minutes Charges/Coding Visit Charges Inpatient E&M: 99731 Subs Hosp L3 02/22/24 0950 <Electronically signed by Roman Mckeon MD> Cosigner Signature (if applicable): CC: ~ Signed [facility] Work Phone: 1(668) 265-870204-04-2024 Progress note Author Kevin Gonzalez [facility] February 21, 2024 5:17pm Note Date/Time February 21, 2024 5:17 pm [facility] Medical Records Department [address] [place] [address] Progress Note - GI 02/21/24 1710 MR#: [id number] Acct: [id number] Name: ANGÉLICA YO Rep #:[id number] 8 : 1955 68 From: Kevin Gonzalez DO PCP: Dr. Daron Benton MD Status:ADM IN Location: [place] [address] Subjective Subjective She underwent an upper endoscopy [...] or outpatient. Charges/Coding Visit Charges Inpatient E&M: 38092 Subs Hosp L3 02/21/24 1717 <Electronically signed by Kevin Gonzalez DO> Cosigner Signature (if applicable): CC: ~ Signed [facility] Work Phone: 1(965) 143-328704-04-2024 Progress note Author Roman Mckeon [facility] February 21, 2024 11:21am Note Date/Time February 21, 2024 10:0 5am [facility] Medical Records Department [address] [place] [address] Progress Note - Hospitalist 02/21/24 1002 MR#: [id number] Acct: [id number] Name: ANGÉLICA YO Rep #:[id number] 4 : 1955 68 From: Roman Mckeon MD PCP: Dr. Daron Benton MD Status:ADM IN Location: [place] [address] Reason for Visit Reason for Visit: Diagnoses [...] 50 Minutes Charges/Coding Visit Charges Inpatient E&M: 32989 Subs Hosp L3 02/21/24 1121 <Electronically signed by Roman Mckeon MD> Cosigner Signature (if applicable): CC: ~ Signed [facility] Work Phone: 1(454) 294-490304-03-2024 Progress note Author Roman [facility] February 20, 2024 11:46am Note Date/Time February 20, 2024 10:0 8am [facility] Medical Records Department [address] [place] [address] Progress Note - Hospitalist 02/20/24 1005 MR#: [id number] Acct: [id number] Name: ANGÉLICA YO Rep #:[id number] 6 : 1955 68 From: Roman Mckeon MD PCP: Dr. Daron Benton MD Status:ADM IN Location: [place] [address] Reason for Visit Reason for Visit: Diagnoses [...] 73.5 H, Lymph % (Auto) 14.5 L, Winn % (Auto) 8.5, Eos % (Auto) 2.6, [...] 71.0 H, Lymph % (Auto) 14.4 L, Winn % (Auto) 11.1 H, Eos % (Auto) [...] 50 Minutes Charges/Coding Visit Charges Inpatient E&M: 90529 Subs Hosp 02/20/24 1146 <Electronically signed by Roman Mckeon MD> Nicholas Signature (if applicable): CC: ~ Signed [facility] Work Phone: 1(623) 446-492904-03-[address] [facility] 02-20-[address] [facility]04-02-2024 Consult note Author Kevin Gonzalez [facility] February 19, 2024 7:12pm Note Date/Time February 19, 2024 7:09 pm [facility] Medical Records Department [address] [place] [address] Consultation - GI 02/19/24 190 MR#: [id number] Acct: [id number] Name: ANGÉLICA YO Rep #:[id number] 1 : 1955 68 From: Kevin Gonzalez DO PCP: Dr. Daron Benton MD Status:ADM [facility] H[facility] Consult Data Date of [...] fell on Easter in the driveway onto [facility]. She did not hit her head. She denies any recent hospitalization or travel. Imaging of the chest displayed : right lower lobe infiltrate with small right pleural effusion with mild degree of vascular congestion in the right hemithorax. In the ED she was discovered to have a hemoglobin of 6.6. I was consulted for acute onset anemia [facility] Medical History Angina pectoris Bilateral carotid artery [...] Stomach morphine AdvReac Nausea Verified 02/19/24 10:57 Oohmurw-Jnc-Wyb Reductase AdvReac Nausea Verified 02/19/24 10:57 Inhibitor [...] 73.5 H, Lymph % (Auto) 14.5 L, Winn % (Auto) 8.5, Eos % (Auto) 2.6, [...] of 3. Charges/Coding Visit Charges Inpatient E&M: 43326 Init Hosp L3 02/19/241911 <Electronically signed by Kevin Friend DO> Cosigner Signature (if applicable): CC: Dr. Daron Benton MD~ Signed [facility] Work Phone: 1(535) 529-670704-02-2024 History and physical note Author Roman Mckeon [facility] February 19, 2024 3:25pm Note Date/Time February 19, 2024 2:26 pm [facility] Medical Records Department [address] [place] [address] H&P Exam - Hospitalist 02/19/24 1426 MR#: [id number] Acct: [id number] Name: ANGÉLICA YO Rep #:[id number] 0 : 1955 68 From: Roman Mckeon [...] Admitted to monitored bed for further management [facility] Medical History Angina pectoris Bilateral carotid artery [...] Stomach morphine AdvReac Nausea Verified 02/19/24 10:57 Pwwkhwp-RDH-TxW Reductase AdvReac Nausea Verified 02/19/24 10:57 Inhibitor [Vcokvwf-Hja-Abt Reductase Inhibitor] Family History Mother Cancer CAD [...] 73.5 H, Lymph % (Auto) 14.5 L, Winn % (Auto) 8.5, Eos % (Auto) 2.6, [...] 18 minutes. Charges/Coding Visit Charges Inpatient E&M: 85965 Init Hosp L3 Procedures Hospitalists Procedures: 76305 Advncd Care Plan 30 Min 02/19/24 1525 <Electronically signed by Roman Mckeon MD> Cosigner Signature (if applicable): CC: Dr. Roman Mckeon MD; Dr. Daron Benton MD~ Signed [facility] Work Phone: 1([phone]) 370-141804-02-2024 Discharge summary Author Jeffy Willoughby [facility] February 19, 2024 2:59pm Note Date/Time February 19, 2024 12:1 5pm [facility] Medical Records Department [address] [place] [address] Emergency Department Summary 02/19/24 MR#: [id number] Acct: [id number] Name: ANGÉLICA YO Rep #:[id number] 6 : 1955 68 From: Jeffy Willoughby MD PCP: Dr. Daron Benton MD Status:REG ER Location: ED ADDENDUM by Dr. Jeffy Willoughby MD on 02/19/24 at 1459 EKG reveals atrial fibrillation with a ventricular rate 87. QRS duration 84 ms. QT duration 414 ms. [place] is normal. QT is prolonged. 02/19/24 1459<Electronically [...] Stomach morphine AdvReac Nausea Verified 02/19/24 10:57 Xbshzuj-UUW-OcK Reductase AdvReac Nausea Verified 02/19/24 10:57 Inhibitor [Jxxuztx-Zdf-Rrr Reductase Inhibitor] Family History Mother Cancer CAD [...] Warren RN - Last Filed: 02/19/24 13:46> [facility] MDM Narrative Medical decision making narrative: Patient placed on monitoring engineer. IV line initiated. Labwork obtained to [...] 73.5 H Lymph % (Auto) 14.5 L Winn % (Auto) 8.5 Eos % (Auto) 2.6 [...] in both arms to rule out dissection. Lupnf-ki-ecow glucose was obtained to rule out hypoglycemia. [...] Medical decision making narrative: Patient placed on monitoring engineer. IV line initiated. Labwork obtained to [...] 73.5 H Lymph % (Auto) 14.5 L Winn % (Auto) 8.5 Eos % (Auto) 2.6 [...] for hypertension and pneumonia), Discussing w/Patient &/or Family/Feeder Driver, Discussing w/Consultants (Spoke with Dr. Chamorro who referred patient to Dr. Roman Mckeon. Patient was accepted.) and Arranging Admission or Transfer Discharge Plan Dx/Rx/DC Orders Clinical Impression: Acute hypotension, Essential (primary) hypertension, Atrial fibrillation, Community acquired pneumonia, Atypical chest pain, Signs and symptoms of anemia,Symptomatic anemia, Peripheral vascular occlusive disease Disposition Disposition: Acute Care Hospital [facility] What to do if you have Problems For any increased pain, shortness of breath, bleeding, nausea or vomiting, chestpain, or any unexpected problems, contact your Primary Care Provider. Call [facility] ([phone]) or report to the closest Emergency Room. Call 911 if necessary. 02/19/24 1439 <Electronically signed by Jeffy Willoughby MD> Cosigner Signature (if applicable): 02/19/24 1346 <Electronically signed by Bernice Warren RN> CC: Dr. Daron Benton MD ~ Signed [facility] Work Phone: 1(519) 507-899104-02-2024 Discharge summary Author Jeffy Willoughby [facility] February 19, 2024 2:59pm Note Date/Time February 19, 2024 12:1 5pm [facility] Medical Records Department [address] [place] [address] Emergency Department Summary 02/19/24 MR#: [id number] Acct: [id number] Name: ANGÉLICA YO Rep #:[id number] 6 : 1955 68 From: Jeffy Willoughby MD PCP: Dr. Daron Bentno MD Status:REG ER Location: ED ADDENDUM by Dr. Jeffy Willoughby MD on 02/19/24 at 1459 EKG reveals atrial fibrillation with a ventricular rate 87. QRS duration 84 ms. QT duration 414 ms. [place] is normal. QT is prolonged. 02/19/24 1459<Electronically [...] Prior similar symptoms: Yes Recent Illness/Hospitalization: No [facility] <Bernice Warren RN - Last Filed: 02/19/24 13:46> [facility] Medical History Angina pectoris Bilateral carotid artery [...] Stomach morphine AdvReac Nausea Verified 02/19/24 10:57 Shcpyih-ZAF-EvR Reductase AdvReac Nausea Verified 02/19/24 10:57 Inhibitor [Hchgykz-Xeq-Jry Reductase Inhibitor] Family History Mother Cancer CAD [...] Medical decision making narrative: Patient placed on monitoring engineer. IV line initiated. Labwork obtained to [...] 73.5 H Lymph % (Auto) 14.5 L Winn % (Auto) 8.5 Eos % (Auto) 2.6 [...] in both arms to rule out dissection. Vqyuk-bn-pejg glucose was obtained to rule out hypoglycemia. [...] Willoughby MD - Last Filed: 02/19/24 14:39> [facility] MDM Narrative Medical decision making narrative: Patient placed on monitoring engineer. IV line initiated. Labwork obtained to [...] 73.5 H Lymph % (Auto) 14.5 L Winn % (Auto) 8.5 Eos % (Auto) 2.6 [...] for hypertension and pneumonia), Discussing w/Patient &/or Family/Feeder Driver, Discussing w/Consultants (Spoke with Dr. Chamorro who referred patient to Dr. Roman Mckeon. Patient was accepted.) and Arranging Admission or Transfer Discharge Plan Dx/Rx/DC Orders Clinical Impression: Acute hypotension, Essential (primary) hypertension, Atrial fibrillation, Community acquired pneumonia, Atypical chest pain, Signs and symptoms of anemia,Symptomatic anemia, Peripheral vascular occlusive disease Disposition Disposition: Acute Care Hospital [facility] What to do if you have Problems For any increased pain, shortness of breath, bleeding, nausea or vomiting, chestpain, or any unexpected problems, contact your Primary Care Provider. Call [facility] ([phone]) or report to the closest Emergency Room. Call 911 if necessary. 02/19/24 1439 <Electronically signed by Jeffy Willoughby MD> Cosigner Signature (if applicable): 02/19/24 1346 <Electronically signed by Bernice Warren RN> CC: Dr. Daron Benton MD ~ Signed [facility] Work Phone: 1(876) 540-438304-02-2024 History and physical note Author Roman Mckeon [facility] February 19, 2024 3:25pm Note Date/Time February 19, 2024 2:26 pm [facility] Medical Records Department [address] [place] [address] H&P Exam - Hospitalist 02/19/24 1426 MR#: [id number] Acct: [id number] Name: ANGÉLICA YO Rep #:[id number] 0 : 1955 68 From: Roman Mckeon [...] Admitted to monitored bed for further management [facility] Medical History Angina pectoris Bilateral carotid artery [...] Stomach morphine AdvReac Nausea Verified 02/19/24 10:57 Chrrazu-GXY-YiT Reductase AdvReac Nausea Verified 02/19/24 10:57 Inhibitor [Qgzpkur-Ybr-Rsw Reductase Inhibitor] Family History Mother Cancer CAD [...] 73.5 H, Lymph % (Auto) 14.5 L, Winn % (Auto) 8.5, Eos % (Auto) 2.6, [...] 18 minutes. Charges/Coding Visit Charges Inpatient E&M: 74274 Init Hosp L3 Procedures Hospitalists Procedures: 69272 Advncd Care Plan 30 Min 02/19/24 1525 <Electronically signed by Roman Mckeon MD> Cosigner Signature (if applicable): CC: Dr. Roman Mckeon MD; Dr. Daron Benton MD~ Signed [facility] Work Phone: 1(484) 122-265203-25-2024 Telephone encounter Note* Telephone Encounter - Nicole [...] prior to picking up the medication: [facility] Miscellaneous Notes* Telephone Encounter - Nicole Jose [...] up the medication: N/A documented in this [facility]02-23-2024 Discharge summary Author Jori Garcia [facility] January 11, 2024 8:14am Note Date/Time January 11, 2024 2:45am [facility] Medical Records Department [address] [place] [address] Emergency Department Summary 01/11/24 MR#: [id number] Acct: [id number] Name: ANGÉLICA YO Rep #:[id number] 4 : 1955 68 From: Jori Garcia MD PCP: Dr. Daron Benton MD Status:[facility] ER Location: ED HPI HPI [...] in her ears, following with neurology at [facility], and has been having dizziness related [...] she has osteoporosis. Sheis on no anticoagulants. [facility] Medical History Angina pectoris Bilateral carotid [...] Stomach morphine AdvReac Nausea Verified 01/11/24 02:15 Yyeaisd-TZZ-YmJ Reductase AdvReac Nausea Verified 01/11/24 02:15 Inhibitor [Srlopxt-Yvc-Qlr Reductase Inhibitor] Family History Mother Cancer CAD [...] motor deficits and no sensory deficits noted Mertzon Coma Scale: document GCS findings Spontaneous Obeys [...] (prior Afib thought to have caused CVA/TIA, BNT4YJ7-VYHc score of 4, prescribed Eliquis but patient [...] 85.1 H Lymph % (Auto) 5.2 L Winn % (Auto) 7.7 Eos % (Auto) 0.2 [...] Clarity Clear Urine pH 7.0 Ur Specific [place] 1.010 Urine Protein Negative Urine Glucose (UA) [...] (Auto) Neut % (Auto) Lymph % (Auto) Winn % (Auto) Eos % (Auto) Baso % (Auto) Absolute Neuts (auto) Absolute Lymphs (auto) Nucleated RBC % Sodium Potassium Chloride Carbon Dioxide Anion Gap BUN Creatinine Estim Creat Clear Calc Est GFR (MDRD) Af Amer Est GFR (MDRD) Non-Af BUN/Creatinine Ratio Glucose Lactic Acid Calcium Magnesium Troponin I High Sens 17 Urine Color Urine Clarity Urine pH Ur Specific [place] Urine Protein Urine Glucose (UA) Urine Ketones [...] problems, contact your Primary Care Provider. Call [facility] ([phone]) or report to the closest Emergency Room. Call 911 if necessary. 01/11/24 0814 <Electronically signed by Jori Garcia MD> Cosigner Signature (if applicable): CC: Dr. Tye Barnett MD; Dr. Daron Benton MD; MARIANA Candelario ~ Signed [facility] Work Phone: 1(546) 174-445001-26-2024 History of Present illness Narrative* Lizz Navas, [...] after hospital: Pt states she presented to [facility] with dizziness, feeling unbalanced, high BP [...] unsure how much solumedrol she received. From [place] records: CT brain 12/02/23: no acute intracranial [...] TSH VITAMIN B12: No results found for: JVQIPXSR27 No results found for: PHENYTOIN, PHENOBARB, VALPROATE, CBMZ No components found for: TOPIRA @RESULTINGLABINFO@ No results found for: LEVETIRACETA, FERRITIN, CRP, DENNIS, ANCA No results found for: CHRISTIANO, IMMUNOGLOBUL, OLIGOBANDS No results found for: LWE41LF, HEPCAB No results found for: CRP, ANATITER, ANCA FERRITIN: No results found for: FERRITIN ---- ECG 12 lead SINUS BRADYCARDIA PROBABLE LEFT ATRIAL ABNORMALITY No previous ECG available for comparison Electronically Signed On 04-05-2023 7:42:10 EDT by Juvenal Benton [facility] IMPRESSION and PLAN: Problem List Items Addressed [...] order vestibular theapy Vestibular therapy Referral to [facility]. No problem-specific Assessment & Plan notes found for this encounter. ANTWON Harrington CNP I spent 60 minutes caring for this patient today, reviewing labs, records, seeing the patient, documenting in the record and arranging for studies. Electronically signed by ANTWON Harrington CNP on @TDNR@ at @NOWNR@ documented in this [facility]01-26-2024 Instructions* Patient Instructions* ANTWON Harrington CNP - 12/14/2023 2:00 PM EST Prednisone 20mg: take 5 tablets on day 1, 4 tablets on day 2, 3 tablets on day 3, 2 tablets on day 4, and 1 tablet on day 5 Vestibular therapy at [facility] [phone] [facility] for eye exam: [phone] documented in this [facility]01-19-2024 Discharge summary Author Sachin Murillo [facility] December 07, 2023 12:49pm Note Date/Time December 07, 2023 1 2:38pm [facility] Medical Records Department [address] [place] [address] Instructions for Home/Discharge Instructions 12/07/23 1238 MR#: [id number] Acct: [id number] Name: ANGÉLICA YO Rep #:[id number] 3 : 1955 68 From: Sachin chan [...] Carpenter MD;Angie Shields MD; Kt Friend MD; Depeika Graham MD; Dr. Lyle Mena MD; Dr. [...] Farris DO; Keyona Davidson MD ~ Signed [facility] Work Phone: 1(675) 639-770101-18-2024 Progress note Author Sachin Murillo [facility] December 06, 2023 9:04am Note Date/Time December 06, 2023 9 :04am [facility] Medical Records Department [address] [place] [address] Progress Note - Hospitalist 12/06/23 0900 MR#: [id number] Acct: [id number] Name: ANGÉLICA YO Rep #:[id number] 3 : 1955 68 From: Sachin chan [...] (Auto) 79.3 H, Lymph % (Auto) 10.6L, Winn % (Auto) 9.4, Eos % (Auto) 0.0, [...] 13:44 EST Reading Location ID and State: [facility] / [place] Tel , Service support , Rhythm Strip [...] Continue with Synthroid DVT: Eliqu Capacity Legal Glaze Grinder Reflex Medical hold order details:: IF a medical hold is selected below, a suggested order for a MEDICAL HOLD will reflex upon signing the document. Next of kin: [place] law dictates a PRIORITY LIST for identifying legal decision-maker/legal next of kin in the following order (LNOK): 1st: The patient?s legal guardian, if any 2nd: The patient's spouse (if status is questionable, consult Risk Management) 3rd: The patient?s adult child(blaine) (majority, if multiple children) 4th: The patient?s parents 5th: The patient?s adult siblings (majority, if multiple children siblings) Charges/Coding Visit Charges Inpatient E&M: 32744 Subs Hosp L2 12/06/23 0904 <Electronically signed by Sachin Murillo MD> Cosigner Signature (if applicable): CC: ~ Signed [facility] Work Phone: 1(804) 545-341001-17-2024 Progress note Author Kiley Carpenter [facility] December 05, 2023 3:42pm Note Date/Time December 05, 2023 1 :57pm [facility] Medical Records Department [address] [place] [address] Progress Note - Neurology 12/05/23 1348 MR#: [id number] Acct: [id number] Name: ANGÉLICA YO Rep #:[id number] 3 : 1955 68 From: Kiley Carpenter [...] NIHSS: Ischemic Stroke/TIA Start: 12/03/23 09:41 Freq: [id number] Status: Active Protocol: Activity Type Activity Date [...] 90.5 H, Lymph % (Auto) 5.1 L, Winn % (Auto) 3.7, Eos % (Auto) 0.0, [...] 5 5 EF 5 5 WE WF Tour Conductor 5 5 HF 3 5 KE 4 5 KF 5 4 DF 5 5 PF 5 5 -? Sensation- Intact to light touch bilaterally -? Coordination: improved ataxia on the RLE (not prominent); b/l UE with no ataxia -? Gait- deferred 12/05/23 1542 <Electronically signed by Kiley Carpenter MD> Cosigner Signature (if applicable): CC: ~ Signed [facility] Work Phone: 1(489) 684-484801-17-2024 Progress note Author Sachin Murillo [facility] December 05, 2023 10:21am Note Date/Time December 05, 2023 1 0:21am [facility] Medical Records Department [address] [place] [address] Progress Note - Hospitalist 12/05/23 1016 MR#: [id number] Acct: [id number] Name: ANGÉLICA YO Rep #:[id number] 1 : 1955 68 From: Sachin chan [...] 90.5 H, Lymph % (Auto) 5.1 L, Winn % (Auto) 3.7, Eos % (Auto) 0.0, [...] meds as needed DVT: Eliquis Capacity Legal Glaze Grinder Reflex Medical hold order details:: IF a medical hold is selected below, a suggested order for a MEDICAL HOLD will reflex upon signing the document. Next of kin: [place] law dictates a PRIORITY LIST for identifying legal decision-maker/legal next of kin in the following order (LNOK): 1st: The patient?s legal guardian, if any 2nd: The patient's spouse (if status is questionable, consult Risk Management) 3rd: The patient?s adult child(blaine) (majority, if multiple children) 4th: The patient?s parents 5th: The patient?s adult siblings (majority, if multiple children siblings) Charges/Coding Visit Charges Inpatient E&M: 74934 Subs Hosp L2 12/05/23 1021 <Electronically signed by Sachin Murillo MD> Cosigner Signature (if applicable): CC: ~ Signed [facility] Work Phone: 1(816) 823-395401-17-2024 Progress note Author Jorge Hurtado [facility] December 05, 2023 8:31am Note Date/Time December 05, 2023 7 :39am [facility] Medical Records Department [address] [place] [address] Progress Note - School Bus Driver/Custodian 12/05/23 0737 MR#: [id number] Acct: [id number] Name: ANGÉLICA YO Rep #:[id number] 1 : 1955 68 From: Jorge Hurtado [...] noted above. This note was generated with Yappe dictation software. It may contain incorrectwords, spelling, [...] 90.5 H, Lymph % (Auto) 5.1 L, Winn % (Auto) 3.7, Eos % (Auto) 0.0, [...] Psych cooperative Charges/Coding Visit Charges Inpatient E&M: 36093 Subs Hosp L2 12/05/23 0831 <Electronically signed by Jorge Hurtado DO> Cosigner Signature (if applicable): CC: ~ Signed [facility] Work Phone: 1(432) 839-691301-17-2024 Progress note Author Kiley Carpenter [facility] December 04, 2023 10:44pm Note Date/Time December 04, 2023 8 :19pm [facility] Medical Records Department [address] [place] [address] Progress Note - Neurology 12/04/232014 MR#: [id number] Acct: [id number] Name: ANGÉLICA YO Rep #:[id number] 8 : 1955 68 From: Kiley Carpenter [...] NIHSS: Ischemic Stroke/TIA Start: 12/03/23 09:41 Freq: I7CLZTH Status: Active Protocol: Activity Type Activity Date [...] (Auto) 91.9 H, Lymph % (Auto)4.1 L, Winn % (Auto) 3.1, Eos % (Auto) 0.0, [...] movements, the is no post-ictal phase noted 12/04/232 <Electronically signed by Kiley Carpenter MD> Cosigner Signature (if applicable): CC: ~ Signed [facility] Work Phone: 1(357) 269-359801-16-2024 Consult note Author Jorge Hurtado [facility] December 04, 2023 2:14pm Note Date/Time December 04, 2023 7 :20am [facility] Medical Records Department [address] [place] [address] Consultation - School Bus Driver/Custodian 12/04/23 0715 MR#: [id number] Acct: [id number] Name: CHRISTINANGÉLICA ADELSO Rep #:[id number] 6 : 1955 68 From: Jorge Hurtado [...] noted above. This note was generated with Yappe dictation software. It may contain incorrectwords, spelling, [...] maintained on Eliquis, Plavix, Neurontin and antimicrobials. [facility] Medical History Angina pectoris Bilateral carotid artery [...] Stomach morphine AdvReac Nausea Verified 11/26/23 12:47 Zeihjnp-OTR-HyG Reductase AdvReac Nausea Verified 11/26/23 12:47 Inhibitor [Guwzzjp-Wrd-Coq Reductase Inhibitor] Family History Mother Cancer CAD [...] (Auto) 91.9 H, Lymph % (Auto)4.1 L, Winn % (Auto) 3.1, Eos % (Auto) 0.0, [...] MD at 22:18 EST , Capacity Legal Glaze Grinder Reflex Medical hold order details:: IF a medical hold is selected below, a suggested order for a MEDICAL HOLD will reflex upon signing the document. Next of kin: [place] law dictates a PRIORITY LIST for identifying legal decision-maker/legal next of kin in the following order (LNOK): 1st: The patient?s legal guardian, if any 2nd: The patient's spouse (if status is questionable, consult Risk Management) 3rd: The patient?s adult child(blaine) (majority, if multiple children) 4th: The patient?s parents 5th: The patient?s adult siblings (majority, if multiple children siblings) Charges/Coding Visit Charges Inpatient E&M: 63686 Init Hosp 12/04/23 1414 <Electronically signed by [...] MD; Rhiannon Farris DO; Keyona Davidson MD~ [facility] Work Phone: 1(342) 473-865301-16-2024 Progress note Author Sachin Murillo [facility] December 04, 2023 9:58am Note Date/Time December 04, 2023 9 :58am [facility] Medical Records Department [address] [place] [address] Progress Note - Hospitalist 12/04/23 0953 MR#: [id number] Acct: [id number] Name: ANGÉLICA YO Rep #:[id number] 1 : 1955 68 From: Sachin chan [...] (Auto) 91.9 H, Lymph % (Auto)4.1 L, Winn % (Auto) 3.1, Eos % (Auto) 0.0, [...] meds as needed DVT: Eliquis Capacity Legal Glaze Grinder Reflex Medical hold order details:: IF a medical hold is selected below, a suggested order for a MEDICAL HOLD will reflex upon signing the document. Next of kin: [place] law dictates a PRIORITY LIST for identifying legal decision-maker/legal next of kin in the following order (LNOK): 1st: The patient?s legal guardian, if any 2nd: The patient's spouse (if status is questionable, consult Risk Management) 3rd: The patient?s adult child(blaine) (majority, if multiple children) 4th: The patient?s parents 5th: The patient?s adult siblings (majority, if multiple children siblings) Charges/Coding Visit Charges Inpatient E&M: 93219 Subs Hosp L2 12/04/23 0958 <Electronically signed by Sachin Murillo MD> Cosigner Signature (if applicable): CC: ~ Signed [facility] Work Phone: 1([phone]) 230-592301-16-2024 Progress note Author Roman Hewitt [facility] December 04, 2023 12:19am Note Date/Time December 03, 2023 8 :22pm [facility] Medical Records Department [address] [place] [address] Progress Note - Hospitalist 12/03/232018 MR#: [id number] Acct: [id number] Name: ANGÉLICA YO Rep #:[id number] 9 : 1955 68 From: Roman Ortega [...] this time. I patiently spoke to the THERMOSTAT REPAIRER and informed her to send the [...] sonwas updated with results. RUN DATE: 12/03/23 [facility], DEPARTMENT OF LABORATORIES PAGE 1 RUN TIME: 2038 Specimen Inquiry [address], [place], [place], [id number] PATIENT: ANGÉLICA YO LOC: ICU U #: [id number] : 1955 AGE/SX: 68/F FACILITY: [facility] ROOM: ICU02 RE12/02/[address]: Dr. Sachni Murillo STATUS:ADM IN ED: 1 DIS: ~ SPEC #: [id number] LIZBET: 12/03/23 STATUS: COMP REQ #: [id number] RECD: 12/03/23-[address]: Dr. Sachin Murillo [...] CO2 23 mmol/L SO2 95 95-99 % [facility] Imaging Services [address] [place] [address] CTA Head AND Neck W/ Contrast MR#: [id number] Acct: [id number] Name: ANGÉLICA YO Rep #: [id number] : 1955 F 68 From: Charmaine Grant MD PCP: Dr. Daron Benton MD Status: ADM IN Study: CTA Head AND Neck W/ Contrast Date of Exam: 12/03/23 Exam# [id number] Ordering Dr: Roman Miller DO STUDY: CTA [...] There is no demonstrated aneurysm of the [place]. There is no demonstrated abnormality [...] Miller DO; Dr. Daron Benton MD ~ Direct Service Professional: Signed 12/04/23 001 <Electronically signed by Roman Miller DO> Cosigner Signature (if applicable): CC: ~ Signed [facility] Work Phone: 1(908) 178-409201-15-2024 Progress note Author Sachin Murillo [facility] December 03, 2023 2:31pm Note Date/Time December 03, 2023 2 :22pm [facility] Medical Records Department [address] [place] [address] Progress Note - Hospitalist 12/03/23 1419 MR#: [id number] Acct: [id number] Name: ANGÉLICA YO Rep #:[id number] 5 : 1955 68 From: Sachin chan MD PCP: Dr. Daron Benton MD Status:ADM IN Location: [place] [address] Subjective Subjective She was a stroke alert [...] 88.4 H, Lymph % (Auto) 10.2 L, Winn % (Auto) 0.8, Eos % (Auto) 0.0, [...] meds as needed DVT: Eliquis Capacity Legal Glaze Grinder Reflex Medical hold order details:: IF a medical hold is selected below, a suggested order for a MEDICAL HOLD will reflex upon signing the document. Next of kin: [place] law dictates a PRIORITY LIST for identifying legal decision-maker/legal next of kin in the following order (LNOK): 1st: The patient?s legal guardian, if any 2nd: The patient's spouse (if status is questionable, consult Risk Management) 3rd: The patient?s adult child(blaine) (majority, if multiple children) 4th: The patient?s parents 5th: The patient?s adult siblings (majority, if multiple children siblings) Charges/Coding Visit Charges Inpatient E&M: 09368 Subs Hosp L2 12/03/23 1431 <Electronically signed by Sachin Murillo MD> Cosigner Signature (if applicable): CC: ~ Signed [facility] Work Phone: 1(402) 407-258101-14-2024 Consult note Author Kiley Carpenter [facility] December 02, 2023 2:51pm Note Date/Time December 02, 2023 2 :05pm [facility] Medical Records Department [facility] [place] [address] Consultation - Neurology 12/02/23 1403 MR#: [id number] Acct: [id number] Name: ANGÉLICA YO Rep #:[id number] 9 : 1955 68 From: Kiley Carpenter MD PCP: Dr. Daron Benton MD Status:ADM IN Location: [place] [address] Assessment and Plan: Neuro Assessment/Plan ANGÉLICA YO [...] any urinary symptoms. Her neurologist is in [place]. ANGÉLICA YO, is a 68 F with [...] hrs Had her aneurysm coiled in 2013. [facility] Medical History Angina pectoris Bilateral carotid artery [...] Stomach morphine AdvReac Nausea Verified 11/26/23 12:47 Ryxbqmg-TTR-LcH Reductase AdvReac Nausea Verified 11/26/23 12:47 Inhibitor [Sxydvco-Pin-Ond Reductase Inhibitor] Family History Mother Cancer CAD [...] 4 EF 5 4 WE l WF Tour Conductor 5 5 HF 3 4 KE 4 [...] % (Auto) 56.3, Lymph % (Auto) 28.5, Winn % (Auto) 12.7 H, Eos % (Auto) [...] Clarity Clear, Urine pH 6.5, Ur Specific [place] 1.015, Urine Protein 15 H, Urine Glucose [...] 125 Mcg Capsule (5,000 Units) PO DAILY [facility] Clopidogrel Bisulfate 75 mg 12/03/23 10:00 Clopidogrel Bisulfate 75 Mg Tablet PO DAILY [facility] Docusate Sodium 100 mg 12/02/23 12:37 Docusate Sodium 100 Mg Capsule PO BID PRN PRN Constipation Gabapentin 800 mg 12/02/23 12:45 Gabapentin 800 Mg Tablet PO TIDCM [facility] Guaifenesin 1 tablet 12/02/23 22:00 Guaifenesin/D-Methorphan Tab.Sr.12h PO Q12 VIMAL Guaifenesin 20 ml 12/02/23 12:37 Guaifenesin 10 Ml Udc (200mg/10ml) PO Q4H PRN PRN COUGH Potassium Chloride/Dextrose/Sod Cl 20 meq in 1,000 mls @ 100 mls/hr 12/02/23 12:37 IV 12/03/23 08:36 .Q10H VIMAL Ceftriaxone Sodium 1 gm in 50 mls @ 100 mls/hr 12/02/23 12:37 Rocephin IV 12/09/23 12:38 Q24 [facility] Levothyroxine Sodium 50 mcg 12/03/23 06:00 Levothyroxine 50 Mcg Tablet PO DAILY@0600 [facility] Lisinopril 5 mg 12/03/23 10:00 Lisinopril 5 Mg Tablet PO DAILY [facility] Protocol Melatonin 3 mg 12/02/23 12:37 Melatonin 3 Mg Tablet PO QHS PRN PRN INSOMNIA Metoprolol Tartrate 12.5 mg 12/02/23 22:00 Metoprolol Tartrate 25 Mg Tablet PO BID [facility] Protocol Nitroglycerin 0.4 mg 12/02/23 12:37 Nitroglycerin (Inpatient Use) 0.4 Mg Tab.Subl SL Q5M PRN CARDIAC/CHEST PAIN Ondansetron HCl 4 mg 12/02/23 12:37 Ondansetron 4 Mg/2 Ml Vial IV Q8H PRN PRN NAUSEA/VOMITING Oxycodone HCl 10 mg 12/02/23 12:37 12/02/23 13:01 Oxycodone 5 Mg Tablet PO 10 mg Q4H PRN PRN Administration Pain Score 4-10 12/02/23 8911 <Electronically signed by Kiley Carpenter MD> Cosigner [...] DO; Keyona Davidson MD~ Signed [facility] Work Phone: 1(448) 696-573901-14-2024 Discharge summary Author [facility] December 02, 2023 1:21pm Note Date/Time December 02, 2023 8 :23am [facility] Medical Records Department [address] [place] [address] Emergency Department Summary 12/02/23 MR#: [id number] Acct: [id number] Name: ANGÉLICA YO Rep #:[id number] 6 : 1955 68 From: Gabriella Green PCP: Dr. Daron Benton MD Status:ADM IN Location: [address] History of Present Illness Chief Complaint: [...] any urinary symptoms. Her neurologist is in [place]. [facility] Medical History Angina pectoris Bilateral carotid [...] Stomach morphine AdvReac Nausea Verified 11/26/23 12:47 Fbuuawk-AIA-IiL Reductase AdvReac Nausea Verified 11/26/23 12:47 Inhibitor [Vngwlmg-Znc-Qia Reductase Inhibitor] Family History Mother Cancer CAD [...] off the bed. Is able to do zudamm-rf-kbfu but has bilateral ataxia with it. Too [...] to touch my finger her nose with yrzvwd-cq-jjif. Her symptoms started at least 24 hours [...] % (Auto) 56.3 Lymph % (Auto) 28.5 Winn % (Auto) 12.7 H Eos % (Auto) [...] Clarity Clear Urine pH 6.5 Ur Specific [place] 1.015 Urine Protein 15 H Urine Glucose [...] Multiple sclerosis Disposition Disposition: Acute Care Hospital [facility] Discharge Date/Time: 12/02/23 12:36 What to do if you have Problems For any increased pain, shortness of breath, bleeding, nausea or vomiting, chestpain, or any unexpected problems, contact your Primary Care Provider. Call [facility] ([phone]) or report to the closest Emergency Room. Call 911 if necessary. 12/02/23 1321 <Electronically signed by Gabriella Simpson DO> Cosigner Signature (if applicable): CC: Dr. Daron Benton MD ~ Signed [facility] Work Phone: 1(277) 546-597001-14-2024 History and physical note Author Roman Mckeon [facility] December 02, 2023 11:53am Note Date/Time December 02, 2023 1 1:43am [facility] Medical Records Department [address] [place] [address] H&P Exam - Hospitalist 12/02/23 1140 MR#: [id number] Acct: [id number] Name: ANGÉLICA YO Rep #:[id number] 9 : 1955 68 From: Roman Mckeon MD PCP: Dr. Daron Benton MD Status:ADM IN Location: [place]3 [place]026-4 HPI - General General Date of Admission: [...] to a monitored bed for further management [facility] Medical History Angina pectoris Bilateral carotid artery [...] Stomach morphine AdvReac Nausea Verified 11/26/23 12:47 Ghykwbe-AQL-KcA Reductase AdvReac Nausea Verified 11/26/23 12:47 Inhibitor [Paloinr-Avt-Tjh Reductase Inhibitor] Family History Mother Cancer CAD [...] % (Auto) 56.3, Lymph % (Auto) 28.5, Winn % (Auto) 12.7 H, Eos % (Auto) [...] Clarity Clear, Urine pH 6.5, Ur Specific [place] 1.015, Urine Protein 15 H, Urine Glucose [...] 18 minutes. Charges/Coding Visit Charges Inpatient E&M: 28174 Init Hosp L3 Procedures Hospitalists Procedures: 66768 Advncd Care Plan 30 Min 12/02/23 1153 <Electronically signed by Roman Mckeon MD> Cosigner Signature (if applicable): CC: Dr. Roman Mckeon MD; Dr. Daron Benton MD~ Signed [facility] Work Phone: 1(814) 571-121801-09-2024 Discharge summary Author Ramírez Onofre [facility] November 27, 2023 11:55am Note Date/Time November 27, 2023 9: 40am [facility] Medical Records Department [address] [place] [address] Emergency Department Summary 11/27/23 MR#: [id number] Acct: [id number] Name: ANGÉLICA YO Rep #:[id number] 3 : 1955 68 From: Ramírez Onofre [...] Prior similar symptoms: No Recent Illness[facility]Hospital[facility] Medical History Angina pectoris Bilateral carotid artery [...] Stomach morphine AdvReac Nausea Verified 11/26/23 12:47 Izpadmo-NQB-MeU Reductase AdvReac Nausea Verified 11/26/23 12:47 Inhibitor [Obmlbir-Gfq-Qrm Reductase Inhibitor] Family History Mother Cancer CAD [...] moving all 4 extremities. 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 Dorsi and plantarflexion [...] 71.7 H Lymph % (Auto) 16.8 L Winn % (Auto) 9.9 Eos % (Auto) 0.4 [...] 11:19 EST Reading Location ID and State: [facility] / [place] Tel , Service support , Chest X-Ray [...] rate of 50 no acute signs of UT or ischemia. No significant change from November [...] problems, contact your Primary Care Provider. Call [facility] ([phone]) or report to the closest Emergency Room. Call 911 if necessary. 11/27/23 8440 <Electronically signed by Ramírez Onofre MD> Cosigner Signature (if applicable): CC: Dr. Daron Benton MD ~ Signed [facility] Work Phone: 1([phone]) 734-286401-03-2024 Discharge summary Author Sachin Murillo [facility] November 21, 2023 9:07am Note Date/Time November 21, 2023 8: 56am [facility] Medical Records Department [address] [place] [address] Instructions for Home/Discharge Instructions 11/21/23 0855 MR#: [id number] Acct: [id number] Name: ANGÉLICA YO Rep #:[id number] 2 : 1955 68 From: Sachin chan [...] MD; Dr. Daron Benton MD ~ Signed [facility] Work Phone: 1(636) 494-301701-02-2024 Progress note Author Sachin Murillo [facility] November 20, 2023 10:23am Note Date/Time November 20, 2023 10 :23am [facility] Medical Records Department [address] [place] [address] Progress Note - Hospitalist 11/20/23 1021 MR#: [id number] Acct: [id number] Name: ANGÉLICA YO Rep #:[id number] 6 : 1955 68 From: Sachin chan MD PCP: Dr. Daron Benton MD Status:ADM IN Location: [place] [address] Subjective Subjective Still feels fatigued and unwell [...] 81.9 H, Lymph % (Auto) 5.9 L, Winn % (Auto) 9.8, Eos % (Auto) 0.1, [...] DVT: SCDs Charges/Coding Visit Charges Inpatient E&M: 88616 Subs Hosp L2 11/20/23 1023 <Electronically signed by Sachin Murillo MD> Cosigner Signature (if applicable): CC: ~ Signed [facility] Work Phone: 1(955) 563-230701-01-2024 Progress note Author Sachin Murillo [facility] November 19, 2023 10:52am Note Date/Time November 19, 2023 10 :52am [facility] Medical Records Department [address] [place] [address] Progress Note - Hospitalist 11/19/23 1046 MR#: [id number] Acct: [id number] Name: ANGÉLICA YO Rep #:[id number] 6 : 1955 68 From: Sachin chan MD PCP: Dr. Daron Benton MD Status:ADM IN Location: [place] [address] Subjective Subjective Doing well, no issues overnight. [...] % (Auto) 66.4, Lymph % (Auto) 19.4, Winn % (Auto) 12.9 H, Eos % (Auto) [...] Clarity Clear, Urine pH 6.0, Ur Specific [place] 1.015, Urine Protein Negative, Urine Glucose (UA) [...] (Auto) 67.7, Lymph % (Auto) 17.1 L, Winn % (Auto) 13.3 H, Eos % (Auto) [...] DVT: SCDs Charges/Coding Visit Charges Inpatient E&M: 64553 Subs Hosp L2 11/19/23 1052 <Electronically signed by Sachin Murillo MD> Cosigner Signature (if applicable): CC: ~ Signed [facility] Work Phone: 1(922) 585-705612-31-2023 History and physical note Author Sommer Resendiz [facility] November 18, 2023 8:55pm Note Date/Time November 18, 2023 2:14pm [facility] Medical Records Department [address] [place] [address] H&P Exam - Hospitalist 11/18/23 1413 MR#: [id number] Acct: [id number] Name: ANGÉLICA YO Rep #:[id number] 5 : 1955 68 From: Sommer Resendiz MD PCP: Dr. Daron Benton MD Status:ADM [facility] HPI - General General Date [...] injury associated to now represents to the [facility] ED on 11/18/23 with history of [...] Stomach morphine AdvReac Nausea Verified 11/15/23 11:27 Wncneyq-JJJ-BwM Reductase AdvReac Nausea Verified 11/15/23 11:27 Inhibitor [Wkzpyya-Rxg-Ufh Reductase Inhibitor] Family History Mother Cancer CAD [...] % (Auto) 66.4, Lymph % (Auto) 19.4, Winn % (Auto) 12.9 H, Eos % (Auto) [...] Clarity Clear, Urine pH 6.0, Ur Specific [place] 1.015, Urine Protein Negative, Urine Glucose (UA) [...] injury associated to now represents to the [facility] ED on 11/18/23 with history of [...] Code status. Charges/Coding Visit Charges Inpatient E&M: 31035 Init Hosp L3 11/18/232054 <Electronically signed by Sommer Resendiz MD> Cosigner Signature (if applicable): CC: Dr. Sommer Resendiz MD; Dr. Daron Benton MD~ Signed [facility] Work Phone: 1(871) 752-535712-31-2023 Discharge summary Author Michele Kebede [facility] November 18, 2023 3:08pm Note Date/Time November 18, 2023 12:03pm [facility] Medical Records Department [address] [place] [address] Emergency Department Summary 11/18/23 MR#: [id number] Acct: [id number] Name: ANGÉLICA YO Rep #:[id number] : 1955 68 From: Michele Kebede [...] states she has never had atrial fibrillation. [facility] Medical History Angina pectoris Bilateral carotid [...] Stomach morphine AdvReac Nausea Verified 11/15/23 11:27 Uiutrai-EQZ-OqA Reductase AdvReac Nausea Verified 11/15/23 11:27 Inhibitor [Oaxeupe-Bnx-Bck Reductase Inhibitor] Family History Mother Cancer CAD [...] % (Auto) 66.4 Lymph % (Auto) 19.4 Winn % (Auto) 12.9 H Eos % (Auto) [...] Clarity Clear Urine pH 6.0 Ur Specific [place] 1.015 Urine Protein Negative Urine Glucose (UA) [...] 13:04 EST Reading Location ID and State: [facility] / [place] Tel , Service support , EKG Initial [...] Influenza A Disposition Disposition: Acute Care Hospital [facility] What to do if you have Problems For any increased pain, shortness of breath, bleeding, nausea or vomiting, chestpain, or any unexpected problems, contact your Primary Care Provider. Call [facility] ([phone]) or report to the closest Emergency Room. Call 911 if necessary. 11/18/23 1508 <Electronically signed by Michele Kebede MD> Cosigner Signature (if applicable): CC: Dr. Daron Benton MD ~ Signed [facility] Work Phone: 1([phone]) 659-317412-31-2023 Discharge summary Author Michele Kebede [facility] November 18, 2023 3:08pm Note Date/Time November 18, 2023 12:03pm [facility] Medical Records Department [address] [place] [address] Emergency Department Summary 11/18/23 MR#: [id number] Acct: [id number] Name: CHRISTINANGÉLICA PELAYO Rep #:[id number] 0 : 1955 68 From: Michele Kebede [...] states she has never had atrial fibrillation. [facility] Medical History Angina pectoris Bilateral carotid [...] Stomach morphine AdvReac Nausea Verified 11/15/23 11:27 Odawxkp-FMW-KeV Reductase AdvReac Nausea Verified 11/15/23 11:27 Inhibitor [Pkhttuw-Xox-Bmj Reductase Inhibitor] Family History Mother Cancer CAD [...] % (Auto) 66.4 Lymph % (Auto) 19.4 Winn % (Auto) 12.9 H Eos % (Auto) [...] Clarity Clear Urine pH 6.0 Ur Specific [place] 1.015 Urine Protein Negative Urine Glucose (UA) [...] Influenza A Disposition Disposition: Acute Care Hospital [facility] What to do if you have Problems For any increased pain, shortness of breath, bleeding, nausea or vomiting, chestpain, or any unexpected problems, contact your Primary Care Provider. Call [facility] ([phone]) or report to the closest Emergency Room. Call 911 if necessary. 11/18/23 1508 <Electronically signed by Michele Kebede MD> Cosigner Signature (if applicable): CC: Dr. Daron Benton MD ~ Signed [facility] Work Phone: 1([phone]) 234-755012-28-2023 History and physical note Author Sommer Resendiz [facility] November 15, 2023 3:44pm Note Date/Time November 15, 2023 3:14pm [facility] Medical Records Department [address] [place] [address] H&P Exam - Hospitalist 11/15/23 1512 MR#: [id number] Acct: [id number] Name: ANGÉLICA YO Rep #:[id number] 3 : 1955 68 From: Sommer Resendiz MD PCP: Dr. Daron Benton MD Status:ADM IN Location: [facility] [place]-8 HPI - General General Date of Admission: 11/15/23 Date of Service: 11/15/23 Chief Complaint: Poor intake, malaise, fatigue, weakness, N/V/D HPI Narrative The patient is a 68 y/o F w/ PMHx: Hx Cerebral aneurysm, Chronic pain syndrome, HTN, HLD, Hx TIA, Multiple Sclerosis, Nonobstructive CAD, Psoriatic arthritis, PAD, NS SVT, GERD, Hypothyroidism, Carotid disease, Tobacco use who presents to the [facility] ED on 11/15/23 with history of [...] x 1 and 1 L normal saline. [facility] Medical History Angina pectoris Bilateral carotid artery [...] Stomach morphine AdvReac Nausea Verified 11/15/23 11:27 Sfzeraz-BNF-BkF Reductase AdvReac Nausea Verified 11/15/23 11:27 Inhibitor [Stfdntp-Gia-Ebt Reductase Inhibitor] Family History Mother Cancer CAD [...] 70.4 H, Lymph % (Auto) 14.3 L, Winn % (Auto) 14.5 H, Eos % (Auto) [...] 13:03 EST Reading Location ID and State: [facility] / [place] Tel , Service support , Assessment & Plan Assessment/Plan (1) Influenza A: (2) Acute kidney injury: PLAN: Plan The patient is a 68 y/o F w/ PMHx: Hx Cerebral aneurysm, Chronic pain syndrome, HTN, HLD, Hx TIA, Multiple Sclerosis, Nonobstructive CAD, Psoriatic arthritis, PAD, NS SVT, GERD, Hypothyroidism, Carotid disease, Tobacco use who presents to the [facility] ED on 11/15/23 with history of [...] 16 minutes. Charges/Coding Visit Charges Inpatient E&M: 31984 Init Hosp L3 Procedures Hospitalists Procedures: 18641 Advncd Care Plan 30 Min 11/15/23 1544 <Electronically signed by Sommer Resendiz MD> Cosigner Signature (if applicable): CC: Dr. Sommer Resendiz MD; Dr. Daron Benton MD~ Signed [facility] Work Phone: 1(830) [phone] Discharge summary Author Michele Kebede [facility] November 15, 2023 3:10pm Note Date/Time November 15, 2023 12:02pm [facility] Medical Records Department [address] [place] [address] Emergency Department Summary 11/15/23 MR#: [id number] Acct: [id number] Name: ANGÉLICA YO Rep #:[id number] 2 : 1955 68 From: Michele Kebede [...] because she cannot take the strong medications. [facility] Medical History Angina pectoris Bilateral carotid [...] Stomach morphine AdvReac Nausea Verified 11/15/23 11:27 Gfhjcsh-AII-JlR Reductase AdvReac Nausea Verified 11/15/23 11:27 Inhibitor [Usknbjs-Jom-Ujk Reductase Inhibitor] Family History Mother Cancer CAD [...] 70.4 H Lymph % (Auto) 14.3 L Winn % (Auto) 14.5 H Eos % (Auto) [...] ventricular ectopy. No acuteST elevation or depression. NH interval, QRS duration are normal. QTc is [...] Provider] - Disposition Disposition: Acute Care Hospital [facility] What to do if you have Problems For any increased pain, shortness of breath, bleeding, nausea or vomiting, chestpain, or any unexpected problems, contact your Primary Care Provider. Call Doctors Registry ([phone]) or report to the closest Emergency Room. Call 911 if necessary. 11/15/23 1510 <Electronically signed by Michele Kebede MD> Cosigner Signature (if applicable): CC: Dr. Daron Benton MD ~ Signed [facility] Work Phone: [phone]) 996-231912-28-2023 Discharge summary Author Michele Kebede [facility] November 15, 2023 3:10pm Note Date/Time November 15, 2023 12:02pm [facility] Medical Records Department [address] [place] [address] Emergency Department Summary 11/15/23 MR#: [id number] Acct: [id number] Name: ANGÉLICA YO Rep #:[id number] 2 : 1955 68 From: Michele Kebede MD PCP: Dr. Daron Benton MD Status:[facility] ER Location: ED HPI History [...] because she cannot take the strong medications. [facility] Medical History Angina pectoris Bilateral carotid [...] Stomach morphine AdvReac Nausea Verified 11/15/23 11:27 Gpnqzuu-YGX-GxO Reductase AdvReac Nausea Verified 11/15/23 11:27 Inhibitor [Bqlbvuu-Brm-Gwl Reductase Inhibitor] Family History Mother Cancer CAD [...] 70.4 H Lymph % (Auto) 14.3 L Winn % (Auto) 14.5 H Eos % (Auto) [...] ventricular ectopy. No acuteST elevation or depression. NH interval, QRS duration are normal. QTc is [...] Care Provider] - Disposition Disposition: Acute Care [facility] What to do if you have Problems For any increased pain, shortness of breath, bleeding, nausea or vomiting, chestpain, or any unexpected problems, contact your Primary Care Provider. Call [facility] ([phone]) or report to the closest Emergency Room. Call 911 if necessary. 11/15/23 1510 <Electronically signed by Michele Kebede MD> Cosigner Signature (if applicable): CC: Dr. Daron Benton MD ~ Signed [facility] Work Phone: [phone]) 676-267411-17-2023 History of Present illness Narrative* Kristopher Main MD - 10/05/2023 3:00 PM EST Images from the original note were not included. [facility] [address] [facility] [address] Dept: [phone] Dept Loc: [phone] Patient was seen today via Telehealth by [...] that they are currently in the state [facility]. If the patient is a minor,permission [...] TSH VITAMIN B12: No results found for: MNEPNURQ63 No results found for: PHENYTOIN, PHENOBARB, VALPROATE, CBMZ No results found for: LEVETIRACETA, FERRITIN, CRP, DENNIS, ANCA FERRITIN: No results found for: FERRITIN @RESULTINGLABINFO@ No components found for: TOPIRA No results found for: CHRISTIANO, IMMUNOGLOBUL, OLIGOBANDS No results found for: YMD93ES, HEPCAB No results found for: CRP, ANATITER, ANCA ---- @LASTAPPOINTMENTTHISPROV@ ECG 12 lead SINUS BRADYCARDIA PROBABLE LEFT ATRIAL ABNORMALITY No previous ECG available for comparison Electronically Signed On 04-05-2023 7:42:10 EDT by Juvenal Benton Patient Name: [facility]LICA [facility]O [facility] 1955 [id number] Exam Date/Time: 04/04/2023 15:32 Procedure: CT HEAD [...] volume rendered reformats were obtained using a AimWith workstation. Review of the axial source data [...] of the major intracranial arteries at the [place]. 6. No hemodynamically significant narrowing [...] and arranging for studies. documented in this encounterSMercy Health St. Charles HospitalFyzeoc15-13-8558 Telephone encounter Note* Telephone Encounter - Yanely Kwon MA - 10/05/2023 12:58 PM EST Patient has been scheduled and records are being faxed over. [facility] CenterKylfpk65-95-8442 Miscellaneous Notes* Telephone Encounter - Yanely Kwon MA - 10/05/2023 12:58 PM EST Patient has been scheduled and records are being faxed over. * Telephone Encounter - Kristopher Main MD - 10/05/2023 12:36 PM EST Get records from [facility]. OK to add her on at 3 PM as a real or a virtual visit * Telephone Encounter - Ольга Pa - 10/05/2023 9:20 AM EST Name of caller: Angélica Contact phone number: [phone] Relationship to Patient: patient Provider: DR Main [...] return their call: Yes documented in this encounterSMercy Health St. Charles HospitalXzcutp77-54-0536 Telephone encounter Note* Telephone Encounter - Kristopher Main MD - 10/05/2023 12:36 PM EST Get records from [facility]. OK to add her on at 3 PM as a real or a virtual visit [facility] CenterNaapxz68-68-6908 Telephone encounter Note* Telephone Encounter - Ольга Pa - 10/05/2023 9:20 AM EST Name of caller: Angélica Contact phone number: [phone] Relationship to Patient: patient Provider: DR Main [...] business hours to return their call: Yes [facility] [id number] Telephone encounter Note* Telephone Encounter - Annalee Ram - 06/15/2023 9:41 AM EDT Medication name: baclofen (Lioresal) 20 MG tablet [[id number]] Order Details Dose: 20 mg Route: Oral [...] Original Order: baclofen (Lioresal) 20 MG tablet [[id number]] Providers Ordering and Authorizing Provider: Kristopher Main MD NEGRA #: [id number] Ordering User: Kristopher Main MD Pharmacy [facility] #[id number] [address] NEGRA #: -- Date of last office visit: 04/04/23 Date of next office visit: None Date of last refill: (see medication tab): 10/05/22 Updated/Validated preferred pharmacy: Yes Patient instructed to contact the pharmacy prior to picking up the medication: Yes [facility] [id number] Miscellaneous Notes* Telephone Encounter - Annalee aRm - 06/15/2023 9:41 AM EDT Medication name: baclofen (Lioresal) 20 MG tablet [[id number]] Order Details Dose: 20 mg Route: Oral [...] Original Order: baclofen (Lioresal) 20 MG tablet [[id number]] Providers Ordering and Authorizing Provider: Kristopher Main MD NEGRA #: [id number] Ordering User: Kristopher Main MD Pharmacy [facility] #[id number] [address] NEGRA #: -- Date of last office visit: 04/04/23 Date of next office visit: None Date of last refill: (see medication tab): 10/05/22 Updated/Validated preferred pharmacy: Yes Patient instructed to contact the pharmacy prior to picking up the medication: Yes documented in this encounterSMercy Health St. Charles HospitalOkggju12-40-5889 Telephone encounter Note* Telephone Encounter - Kristopher Main MD - 06/04/2023 4:04 PM EDT Rx renewed [facility] CenterEypbgz75-46-2344 Miscellaneous Notes* Telephone Encounter - Kristopher aMin MD - 06/04/2023 4:04 PM EDT Rx [...] the medication: Yes documented in this encounterSMercy Health St. Charles HospitalFyknyd75-97-1903 Telephone encounter Note* Telephone Encounter - Bina Snow - 06/04/2023 3:31 PM EDT Please advise. [facility] CenterYjmyli14-48-9415 Telephone encounter Note* Telephone Encounter - Jeni [...] prior to picking up the medication: Yes [facility] CenterYjnrer62-41-1973 Hospital Discharge instructions Additional Instructions 1. Do not place an Jean-Claude wrap on your foot this probably contributed to the swelling. 2. Apply ice to calf 6-10 times a day for the next 3 to 5 [facility] Work Phone: [phone]) 564-358412-22-2022 Hospital Discharge instructions Patient Education 11/09/2022 12:48:32 [...] and water are not available, use hand laborer golf course. ?Change your dressing as told by your [...] the contrast dye from your body. Take skao-iqm-bewkzzi and prescription medicines only as told by [...] 05/24/2006 Document Revised: 10/18/2018 Document Reviewed: 10/10/2017 [employer] Patient Education 2020 WebAction. 11/09/2022 12:48:21 Moderate Conscious Sedation, Adult, Care [...] until you are awake and alert. Take ttef-uwj-cdniqyc and prescription medicines only as told by [...] 08/26/2014 Document Revised: 10/18/2018 Document Reviewed: 02/24/2017 [employer] Patient Education 2020 WebAction. Follow Up Care 10/27/2022 15:58:56 With:TYE BARNETT MD, [facility], Surgery, Vascular Surgeons Address: [facility] [address] [place] [address] When: Unknown Comments:Follow-up as scheduled [facility] 12-22-2022 Summary of episode note Discharge Instructions Thank you for allowing [facility] to assist you with your healthcare needs. The following is importantdischarge information regarding your hospital visit. What to do next Follow Up Appointments Follow Up with TYE BARNETT MD, [facility], Surgery, Vascular Surgeons When Why: Follow-up as scheduled Where: [facility] [address] [address] The Following Activity and Diet [...] and water are not available, use hand laborer golf course. ? Change your dressing as told by [...] the contrast dye from your body. Take eahb-lln-raupykg and prescription medicines only as told by [...] 05/24/2006 Document Revised: 10/18/2018 Document Reviewed: 10/10/2017 [employer] Patient Education 2020 WebAction. Moderate Conscious Sedation, Adult, Care After These [...] until you are awake and alert. Take dzqx-lhn-bqksdhc and prescription medicines only as told by [...] 08/26/2014 Document Revised: 10/18/2018 Document Reviewed: 02/24/2017 [employer] Patient Education 2020 [employer] Additional Information VACCINATE! IT SAVES LIVES! Members of the community who have not yet received the COVID-19 vaccine and would like to receive it can visit one of [facility] vaccine clinics. There are many vaccine clinic locations within the [facility]. For locations and available times, please visit https://[email or web address].[place].gov/. It is important to note that some COVID mobile vaccine clinics are held outdoors and may be canceled in rainy or stormy conditions. To learn more about pediatric vaccinations (ages 5-11), we invite you to visit the [facility] webpage. https://www.[facility].org/pages/8521-Ibwml-Rxuircpgawi-Oqptqtpjvy-Xhdju-Ibu stions.htmlTo learn more about the COVID-19 vaccine, we invite you to visit the [facility] website for a list of frequently asked questions. [email or web address]/assets/Jluyblbd-xzi-Cnptciti/kqeni-Yzqscuf-Mousqlzcxf _Asked-Questions.pdf [facility] Patient Portal Access Instructions: Stay connected with your healthcare team and access your personal medical information anytime with the [facility] OneChart Patient Portal.If you would like a full copy of your medical records, please contact the [facility] Medical Records Department, Sunday through Sunday between 8a.m. and 4:30p.m. Please follow the directions below to access the portal: 1.Access the email account you provided upon registration to the [facility].2.Look for an invitation email from [facility].3.Open the email and access the invitation link: Accept Invitation to [facility]4.Fill in the required duarte to create your account. Sign into www.AdelaVoice with your username and password that you [...] you will allow to register on the [facility] Patient Portal for access to your information. You can also access the [facility] Patient Portal on the TheFanLeague. Simply click on Health Records under Loop88 and then click on the [facility] logo. HOW TO SAFELY DISPOSE OF PRESCRIPTION [...] Call your local pharmacy or go to [email or web address] to find one close to you.3.Make use of household items: Use cat litter or old coffee grounds to dispose medications if other options arenot available. Mix your drugs with these household products, seal them in an airtight container andthrow it into the garbage. Call [facility]: [phone] to be sure your drugs can be [...] aware that I should contact my doctor. Patient/Glaze Grinder Signature: Date/Time: Relationship to Patient: Witness Name/Signature: Date/Time: [facility] HospitalVxtmijvc39-37-1541 Note ORIGINAL Images acquired, not reported on this accession number. [facility] HospitalAzlevvle53-10-0969 Note ORIGINAL Images acquired, not reported on this accession number.[facility] 04-12-2021 NoteHNO ID: [id number] Author: RT Sandra(Mayda) Service: ? Author Type: Lining Sewer Type: Progress Notes Filed: 04/12/2021 2:14 PM [...] Yo DATE: April 12, 2021 TIME: 2:13 [facility]03-24-2021 NoteHNO ID: [id number] Author: Meli Gore Service: ? Author Type: [...] of wound at high risk for bone exposure.[facility]01-07-2021 History of Present illness Narrative* Tammy [...] 25, 2020 3:08 PM documented in this encounterWVUMedicine Harrison Community Hospital note Author Noa Raza [facility] November 16, 2023 10:43am Note Date/Time November 16, 2023 10:43am [facility] Medical Records Department [address] [place] [address] Counseling Note - Pharmacy 11/16/23 1043 MR#: [id number] Acct: [id number] Name: ANGÉLICA YO Rep #:[id number] 0 : 1955 68 From: Noa Raza PCP: Dr. Daron Benton MD Status:ADM IN Y Location: [place] [address] Pharmacy [place] Med Reconciliation Pharmacy Service has performed discharge [...] applicable): Date CC: ~ Signed [facility] Work Phone: Consult note Author Christel Miranda [facility] November 21, 2023 11:56am Note Date/Time November 21, 2023 11 :56am [facility] Medical Records Department [address] [place] [address] Counseling Note - Pharmacy 11/21/23 1155 MR#: [id number] Acct: [id number] Name: ANGÉLICA YO Rep #:[id number] 2 : 1955 68 From: Christel Miranda PCP: Dr. Daron Benton MD Status:ADM IN Location: [place] [address] Pharmacy [facility] Pharmacy [...] applicable): Date CC: ~ Signed [facility] Work Phone: Consult note Author Christel Miranda [facility] February 25, 2024 4:09pm Note Date/Time February 25, 2024 4:08 pm [facility] Medical Records Department [address] [place] [address] Counseling Note - Pharmacy 02/25/24 1607 MR#: [id number] Acct: [id number] Name: ANGÉLICA OY Rep #:[id number] 2 : 1955 68 From: Christel Miranda PCP: Dr. Daron Benton MD Status:ADM IN Location: [place] [address] Pharmacy [facility] Pharmacy [...] mg PO BID #60 tabs 02/25/24 02/25/24 1603 <Electronically signed by Christel Miranda> Date _ Christel Miranda Cosigner Signature (if applicable): Date CC: ~ Signed [facility] Work Phone: Consult note Author Christel Miranda [facility] Note Date/Time April 22, 2025 4:00p [facility] Medical Records Department [address] [place] [address] Counseling Note - Pharmacy 04/22/25 1559 MR#: [id number] Acct: [id number] Name: ANGÉLICA YO Rep #:[id number] 8 : 1955 69 From: Christel Miranda PCP: Dr. Daron Benton MD Status:ADM IN Y Location: [place] [id number] Pharmacy [facility] Counseling Pharmacy Service has performed [...] applicable): Date CC: ~ Signed [facility] Work Phone: Discharge summary Author Hi Garcia [facility] November 16, 2023 10:38am Note Date/Time November 16, 2023 10:33am [facility] Medical Records Department [address] [place] [address] Instructions for Home/Discharge Instructions 11/16/23 1032 MR#: [id number] Acct: [id number] Name: ANGÉLICA YO Rep #:[id number] 1 : 1955 68 From: Hi Llanos [...] MD; Dr. Daron Benton MD ~ Signed [facility] Work Phone: Discharge summary Author Hi Garcia [facility] November 16, 2023 10:51am Note Date/Time November 16, 2023 10:50am [facility] Medical Records Department [address] [place] [address] Discharge Summary 11/16/23 1043 MR#: [id number] Acct: [id number] Name: ANGÉLICA YO Rep #:[id number] 7 : 1955 68 From: Hi Llanos PCP: Dr. Daron Benton MD Status:ADM IN Location: [address] Providers Date of Admission: 11/15/23 Date [...] 70.4 H, Lymph % (Auto) 14.3 L, Winn % (Auto) 14.5 H, Eos % (Auto) [...] Sl. Cloudy, Urine pH 5.0, Ur Specific [place] 1.015, Urine Protein 15 H, Urine Glucose [...] Neut % (Auto) 57.7, Lymph % (Auto) 25.5,Winn % (Auto) 15.7 H, Eos % (Auto) [...] to go home. Visit Charges Inpatient E&M: 02096 Disch Hosp >30min 11/16/23 1051 <Electronically signed by Hi Garcia MD> Cosigner Signature (if applicable): CC: Dr. Daron Benton MD; Dr. Hi Garcia MD~ Signed [facility] Work Phone: Discharge summary Author Sachin Murillo [facility] November 21, 2023 11:01am Note Date/Time November 21, 2023 11 :01am [facility] Medical Records Department [address] [place] [address] Discharge Summary 11/21/23 1057 MR#: [id number] Acct: [id number] Name: ANGÉLICA YO Rep #:[id number] 1 : 1955 68 From: Sachin chan MD PCP: Dr. Daron Benton MD Status:ADM IN Location: [place] [address] Providers Date of Admission: 11/18/23 Primary Care [...] injury associated to now represents to the [facility] ED on 11/18/23 with history of [...] % (Auto) 62.0, Lymph % (Auto) 14.3L, Winn % (Auto) 18.8 H, Eos % (Auto) [...] Betsey Lindquist PA [Med Staff - [facility] Practice Prof] - 12/21/23 1:00 pm Disposition Disposition (needs filled in before D/C Order can be placed): Home, Self Care Charges/Coding Visit Charges Inpatient E&M: 49425 Disch Hosp >30min 11/21/23 1101 <Electronically signed by Sachin Murillo MD> Cosigner Signature (if applicable): CC: Dr. Daron Benton MD; Dr. Sachin Murillo MD~ Signed [facility] Work Phone: Discharge summary Author Sachin Murillo [facility] December 07, 2023 2:21pm Note Date/Time December 07, 2023 2 :21pm [facility] Medical Records Department [address] [place] [address] Discharge Summary 12/07/23 1417 MR#: [id number] Acct: [id number] Name: ANGÉLICA YO Rep #:[id number] 0 : 1955 68 From: Sachin chan [...] of Tele-Neurology Consult: Yes 12/04/23 06:18 Consult: School Bus Driver/Custodian / Pulmonary Medicine Routine Consulting Provider: Intensivists/Pulmonary [...] 71.0 H, Lymph % (Auto) 17.9 L, Winn % (Auto) 9.8, Eos % (Auto) 0.1, [...] Michele Rascon; Kirsten Azevedo; Joseph Desai; Samina Moretnsen; Keyona Davidson Instructions Additional Instructions / Restrictions: [...] Health Service Charges/Coding Visit Charges Inpatient E&M: 86327 Disch Hosp >30min 12/07/23 1421 <Electronically signed by Sachin Murillo MD> Cosigner Signature (if applicable): CC: Dr. Daron Benton MD; Dr. Sachin Murillo MD~ Signed [facility] Work Phone: Discharge summary Author [facility] Note Date/Time June 03, 2025 7:47 am [facility] Medical Records Department [address] [place] [address] Emergency Department Summary 06/03/25 MR#: [id number] Acct: [id number] Name: ANGÉLICA YO Rep #:[id number] 3 : 1955 69 From: Yasmani Haynes [...] the persistent pain comes in for evaluation. [facility] Medical History Hypertensive emergency NSTEMI, initial episode of care Emphysema of lung Smoking greater than 30 pack years New onset atrial fibrillation TOLEDO (dyspnea on exertion) Atherosclerotic heart disease of [place] coronary artery without angina pectoris Cardiac murmur [...] Stomach morphine AdvReac Nausea Verified 06/03/25 02:30 Byuzmyq-NOF-PwD Reductase AdvReac Nausea Verified 06/03/25 02:30 Inhibitor (Wmeimhy-Zvj-Gcu Reductase Inhibitor) Family History Mother Cancer CAD [...] of blood. The case was discussed with pharmaceutical sales representative/Dr. Gonzalez. He states that with her anemia [...] (Auto) 69.4 Lymph % (Auto) 13.4 L Winn % (Auto) 14.0 H Eos % (Auto) [...] 03:20 IMPRESSION: Small right effusion. Reading Location: [place] [address] Chest x-ray is interpreted by the emergency medicine physician reveals a small right pleural effusion without acute infiltrate or pneumothorax Management Discussion w/another healthcare provider: Hospitalist and Functional Architect Discharge Plan Triage Chief Complaint: Edema ED Provider: Yasmani Haynes Dx/Rx/DC Orders Clinical Impression: Anemia, Congestive heart failure, Paroxysmal atrial fibrillation, Current use of intermediate anticoagulation Prescriptions: No Action gabapentin 800 mg [...] QDAY Primary Care Provider: Daron Benton Referrals: Darno Benton MD [Primary Care Provider] - Print Language: Austrian Disposition Disposition: Acute Care Hospital [facility] What to do if you have Problems For any increased pain, shortness of breath, bleeding, nausea or vomiting, chestpain, or any unexpected problems, contact your Primary Care Provider. Call [facility] ([phone]) or report to the closest Emergency Room. Call 911 if necessary. 06/03/25 2044 <Electronically signed by Yasmani Haynes DO> Cosigner Signature (if applicable): CC: Dr. Daron Benton MD ~ Signed [facility] Work Phone: Evaluation + Plan note No data available for this section [facility] Evaluation note* Diagnosis Onset Date Resolution Status Effusion of left knee joint acute Left knee DJD acute Psoriatic arthritis acute Chronic pain chronic Peripheral vascular occlusive disease chronic Bilateral carotid artery stenosis chronic Essential (primary) hypertension chronic Nonobstructive atherosclerosis of coronary artery chronic Peripheral vascular occlusive disease chronic [facility] Work Phone: Evaluation note* Diagnosis Onset Date Resolution Status Peripheral vascular occlusive disease chronic Bilateral carotid artery stenosis chronic Essential (primary) hypertension chronic Nonobstructive atherosclerosis of coronary artery chronic Peripheral vascular occlusive disease chronic Bilateral carotid artery stenosis chronic Essential (primary) hypertension chronic Nonobstructive atherosclerosis of coronary artery chronic Peripheral vascular occlusive disease chronic [facility] Work Phone: Evaluation note* Diagnosis Onset Date Resolution Status Cardiac murmur acute Bilateral carotid artery stenosis chronic Essential (primary) hypertension chronic Nonobstructive atherosclerosis of coronary artery chronic Peripheral vascular occlusive disease chronic [facility] Work Phone: Evaluation noteNo assessment information available [facility] Work Phone: Evaluation note* Diagnosis Onset Date Resolution Status Effusion of left knee joint acute Left knee DJD acute Psoriatic arthritis acute Cardiac murmur acute TOLEDO (dyspnea on exertion) ac eagle Bilateral carotid artery stenosis chronic Essential (primary) hypertension chronic Nonobstructive atherosclerosis of coronary artery chronic Peripheral vascular occlusive disease chronic [facility] Work Phone: Evaluation note* Diagnosis Onset Date Resolution Status Effusion of left knee joint acute Left knee DJD acute Psoriatic arthritis acute Cardiac murmur acute TOL[place]O (dyspnea on exertion) ac eagle Bilateral carotid artery stenosis chronic Essential (primary) hypertension chronic Nonobstructive atherosclerosis of coronary artery chronic Peripheral vascular occlusive disease chronic Left knee DJD acute Psoriatic arthritis acute [facility] Work Phone: Evaluation note* Diagnosis Onset Date Resolution Status Effusion of left knee joint acute Left knee DJD acute Psoriatic arthritis acute Cardiac murmur acute TOL[place]O (dyspnea on exertion) ac eagle Bilateral carotid artery stenosis chronic Essential (primary) hypertension chronic Nonobstructive atherosclerosis of coronary artery chronic Peripheral vascular occlusive disease chronic Left knee DJD acute Psoriatic arthritis acute 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 Effusion of left knee joint acute Left knee DJD acute Psoriatic arthritis acute [facility] Work Phone: Evaluation note* Diagnosis Onset Date Resolution Status Left knee DJD acute Psoriatic arthritis acute 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 Effusion of left knee joint acute Left knee DJD acute Psoriatic arthritis acute [facility] Work Phone: Evaluation note* Diagnosis Onset Date Resolution Status 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 Effusion of left knee joint acute Left knee DJD acute Psoriatic arthritis acute Intercostal neuralgia acute Thoracic back pain acute [facility] Work Phone: Evaluation note* Diagnosis Onset Date Resolution Status Effusion of left knee joint acute Left knee DJD acute Psoriatic arthritis acute Intercostal neuralgia acute Thoracic back pain acute Psoriatic arthritis acute Thoracic back pain acute Multiple sclerosis chronic [facility] Work Phone: Evaluation note* Diagnosis Multiple sclerosis (HCC) [facility] Multiple [facility] (HCC) [facility] Diagnosis Onset Date Resolution Status Psoriatic arthritis acute Thoracic back pain acute Multiple sclerosis chronic Bilateral carotid artery stenosis chronic Essential (primary) hypertension chronic Nonobstructive atherosclerosis of coronary artery chronic Peripheral vascular occlusive disease [facility] Work Phone: Evaluation note* Diagnosis Onset Date Resolution Status Bilateral carotid artery stenosis chronic Essential (primary) hypertension chronic Nonobstructive atherosclerosis of coronary artery chronic Peripheral vascular occlusive disease chronic [facility] Work Phone: Evaluation note* Diagnosis Multiple sclerosis (HCC)- Primary Multiple sclerosis Cerebrovascular disease, unspecified Primary hypertension Unspecified essential hypertension [facility] Diagnosis Onset Date Resolution Status Knee joint effusion acute [facility] Work Phone: Evaluation note* Diagnosis Onset Date Resolution Status Knee joint effusion acute Bilateral carotid artery stenosis chronic Essential (primary) hypertension chronic Nonobstructive atherosclerosis of coronary artery chronic Peripheral vascular occlusive disease chronic Acute hyponatremia acute Acute kidney injury acute Dehydration acute Influenza A acute [facility] Work Phone: Evaluation note* Diagnosis Onset [...] New onset atrial fibrillation acute [facility] Work Phone: Evaluation note* Diagnosis Onset Date Resolution Status Knee joint effusion acute Bilateral carotid artery stenosis chronic Essential (primary) hypertension chronic Nonobstructive atherosclerosis of coronary artery chronic Peripheral vascular occlusive disease chronic Acute kidney injury acute Acute hyponatremia resolved Dehydration resolved Atrial fibrillation acute Chest pressure acute Elevated troponin acute New onset atrial fibrillation acute [facility] Work Phone: Evaluation note* Diagnosis Onset Date Resolution Status Knee joint effusion acute Bilateral carotid artery stenosis chronic Essential (primary) hypertension chronic Nonobstructive atherosclerosis of coronary artery chronic Peripheral vascular occlusive disease chronic Acute kidney injury acute Acute hyponatremia resolved Dehydration resolved Atrial fibrillation acute Chest pressure acute Elevated troponin acute New onset atrial fibrillation acute Weakness acute [facility] Work Phone: Evaluation note* Diagnosis Onset [...] Dizziness acute Weakness acute Multiple sclerosis chronic [facility] Work Phone: Evaluation note* Diagnosis Multiple [...] hypertension chronic Peripheral vascular occlusive disease chronic [facility] Work Phone: Evaluation note* Diagnosis Multiple [...] (primary) hypertension chronic Peripheral vascular occlusive disease [facility] Work Phone: Evaluation note* Diagnosis Onset [...] (primary) hypertension chronic Peripheral vascular occlusive disease [facility] Work Phone: Evaluation note* Diagnosis Onset [...] anemia resolved Symptomatic anemia resolved [facility] Work Phone: Evaluation note* Diagnosis [facility]ough [facility] Diagnosis Other specified symptoms and signs involving the circulatory and respiratory systems- Primary Cerebrovascular disease, unspecified [facility] Diagnosis Multiple sclerosis (HCC) Multiple sclerosis [facility] Diagnosis Multiple sclerosis (HCC)- Primary Multiple sclerosis Mild cognitive impairment Mild cognitive impairment, so stated Fatigue, unspecified type Deficiency of multiple nutrient elements Other nutritional deficiency [facility] Diagnosis Multiple sclerosis (HCC)- Primary Multiple sclerosis Dysphasia Other speech disturbance [facility] Diagnosis Multiple sclerosis (HCC) Multiple sclerosis [facility] Author Sommer Resendiz [facility] November 15, 2023 3:44pm Note Date/Time November 15, 2023 3:14pm [facility] Medical Records Department [address] [place] [address] H&P Exam - Hospitalist 11/15/23 1512 MR#: [id number] Acct: [id number] Name: ANGÉLICA YO Rep #:[id number] : 1955 68 From: Sommer Resendiz MD PCP: Dr. Daron Benton MD Status:ADM IN Location: MS3 US575-3 HPI - General General Date of Admission: 11/15/23 Date of Service: 11/15/23 Chief Complaint: Poor intake, malaise, fatigue, weakness, N/V/D HPI Narrative The patient is a 68 y/o F w/ PMHx: Hx Cerebral aneurysm, Chronic pain syndrome, HTN, HLD, Hx TIA, Multiple Sclerosis, Nonobstructive CAD, Psoriatic arthritis, PAD, NS SVT, GERD, Hypothyroidism, Carotid disease, Tobacco use who presents to the [facility] ED on 11/15/23 with history of [...] x 1 and 1 L normal saline. [facility] Medical History Angina pectoris Bilateral carotid artery [...] Stomach morphine AdvReac Nausea Verified 11/15/23 11:27 Kgxeusi-OTE-BzP Reductase AdvReac Nausea Verified 11/15/23 11:27 Inhibitor [Mftwtsr-Wzw-Wje Reductase Inhibitor] Family History Mother Cancer CAD [...] 70.4 H, Lymph % (Auto) 14.3 L, Winn % (Auto) 14.5 H, Eos % (Auto) [...] disease, Tobacco use who presents to the [facility] ED on 11/15/23 with history of [...] 16 minutes. Charges/Coding Visit Charges Inpatient E&M: 97124 Init Hosp L3 Procedures Hospitalists Procedures: 03464 Advncd Care Plan 30 Min 11/15/23 1544 <Electronically signed by Sommer Resendiz MD> Cosigner Signature (if applicable): CC: Dr. Sommer Resendiz MD; Dr. Daron Benton MD~ Signed [facility] Work Phone: History and physical note Author Roman Mckeon [facility] December 02, 2023 11:53am Note Date/Time December 02, 2023 1 1:43am [facility] Medical Records Department [address] [place] [address] H&P Exam - Hospitalist 12/02/23 1140 MR#: [id number] Acct: [id number] Name: ANGÉLICA YO Rep #:[id number] : 1955 68 From: Roman Mckeon MD PCP: Dr. Daron Benton MD Status:ADM IN Location: [facility] [id number] HPI - General General Date of Admission: [...] to a monitored bed for further management [facility] Medical History Angina pectoris Bilateral carotid artery [...] Stomach morphine AdvReac Nausea Verified 11/26/23 12:47 Qxnstrb-FIQ-JrS Reductase AdvReac Nausea Verified 11/26/23 12:47 Inhibitor [Eahdjih-Khr-Vwa Reductase Inhibitor] Family History Mother Cancer CAD [...] % (Auto) 56.3, Lymph % (Auto) 28.5, Winn % (Auto) 12.7 H, Eos % (Auto) [...] Clarity Clear, Urine pH 6.5, Ur Specific [place] 1.015, Urine Protein 15 H, Urine Glucose [...] 18 minutes. Charges/Coding Visit Charges Inpatient E&M: 28752 Init Hosp L3 Procedures Hospitalists Procedures: 27928 Advncd Care Plan 30 Min 12/02/23 1153 <Electronically signed by Roman Mckeon MD> Cosigner Signature (if applicable): CC: Dr. Roman Mckeon MD; Dr. Daron Benton MD~ Signed [facility] Work Phone[facility]: [facility] Work [facility]: Hospital Discharge instructions Additional Instructions Please follow-up with your primary care doctor. If your pain gets worse you do not feel you can effectively take care of yourself at home please return to the emergency room. [facility] Work Phone: Hospital Discharge instructions Additional [...] concerns or worsening of symptoms [facility] Work Phone: Hospital Discharge instructions Additional Instructions Continue following up outpatient. You need to follow-up with your PCP, make them aware that you no longer taking her Eliquis. Return for any worsening symptoms. Chest x-ray was clear today.[facility] Work Phone: Hospital Discharge instructions Additional Instructions Labs and CAT scan today showed no significant changes in the past. No signs of acute stroke. Call and follow-up with your primary care physician if this is not improving you and he can discuss further imaging of your neck to see if you may have a pinched nerve.[facility] Work Phone: Hospital Discharge instructions Additional Instructions In 2019, Dr. 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 Make an appointment to see him as soon as possible to have this reevaluated.[facility] Work Phone: Hospital Discharge instructions Additional [...] at risk of getting internal bleeding.[facility] Work Phone: Hospital Discharge instructions Additional [...] concerns or worsening of symptoms. [facility] Work Phone: Hospital Discharge instructionsAdditional Instructions Please continue all of your home medications as directed by your doctor use the capsaicin and oxycodone to help control pain from the shingles and return to the ER should you have any further [facility]WH[facility] Work Phone: Hospital Discharge instructionsAdditional Instructions CT brain negative.[facility] Work Phone: Hospital Discharge instructionsAdditional Instructions Please change your Lasix/furosemide dose to 1 pill a day instead of 2. Please stop the telmisartan. These medications can create irritation to your kidney and it was elevated at your workup today. 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 Daron Benton MD Status:ADM IN Location: PR3 [id number] Progress Note Patient is doing well today. [...] for further workup Visit Charges Inpatient E&M: 91651 Subs Hosp L3 04/22/25 1749 <Electronically signed by Kevin Gonzalez DO> Kevin Gonzalez DO Cosigner Signature (if applicable): CC: ~ Signed [facility] Work Phone: Progress note Author Kevin Gonzalez [facility] Note Date/Time June 09, 2025 5:37 pm [facility] Medical Records Department [address] [place] [address] Progress Note 06/09/25 1736 MR#: [id number] Acct: [id number] Name: ANGÉLICA YO Rep #:[id number] : 1955 69 From: Kevin Gonzalez DO PCP: Dr. Daron Benton MD Status:ADM IN Location: [place] [address] Progress Note Patient has not had any [...] outpatient capsule endoscopy. Visit Charges Inpatient E&M: 20717 Subs Hosp L3 06/09/25 1737 <Electronically signed by Kevin Friend DO> Kevin Friend DO Cosigner Signature (if applicable): CC: ~ Signed [facility] Work Phone: Reason for referral (narrative)* Consultation (Routine) - Pending Review Specialty Diagnoses / Procedures Referred By Hillary christie Referred To Contact Ophthalmology Diagnoses Vision disturbance Procedures [place] OFFICE/OUTPATIENT [facility] 60 MINUTES Lizz Lynn APRN - CNP [address] [address] [place] [phone] Cecilio Gibbs MD [facility] [place] [address] Referral ID Status Reason Start Date Expiration Date Visits Requested Visits Authorized [id number] Pending Review Specialty Services Required 12/14/2023 12/13/2024 1 1 * Therapy (Routine) - Pending Review Specialty Diagnoses / Procedures Referred By Hillary christie Referred To Contact Physical Therapy Diagnoses Dizziness Imbalance Procedures [place] OFFICE/OUTPATIENT [facility] 60 MINUTES Lizz Lynn APRN - CNP [address] [facility] [address] [place] [phone] Referral ID Status Reason Start Date Expiration Date Visits Requested Visits Authorized [id number] Pending Review Eval and Treat 12/14/2023 06/11/2024 99 99 Scheduling Instructions Twice weekly x 4 weeks for dizziness and imbalance [facility]arrative)No reason for referral information availableWH[facility] Work Phone: Summary Purpose Family History No [...] No February 17, 2022 9:49pm Power of Straightener No February 17 9:49pm Advance Directive Response Recorded Date/ Time Advance Directives No January 18 8:11am Living Will No February 18, 2022 4:14am Power of Straightener No February 18 4:14am Advance Directive Response Recorded Date/ Time Advance Directives No January 18 8:11am Living Will No February 20, 2022 4:54pm Power of Straightener No February 20 4:54pm Advance Directive Response Recorded Date/ Time Advance Directives No January 18 7:11am Living Will No February 20, 2022 3:54pm Power of Straightener No February 20 3:54pm Advance Directive Response Recorded Date/ Time Advance Directives No January 18 7:11am Living Will No November 24 11:31pm Power of Straightener No November 24 023 11:31pm Advance Directive Response Recorded Date/ Time Advance Directives No January 18 8:11am Living Will No November 25 12:31am Power of Straightener No November 25 12:31am Advance Directive Response Recorded Date/ Time Advance Directives No January 18 8:11am Living Will No March 16, 2023 12:46pm Power of Straightener No March 16 12:46pm Advance Directive Response Recorded Date/ Time Advance Directives No January 18 8:11am Living Will No March 31, 2023 1 2:40pm Power of Straightener No March 31, 2023 12:40pm Advance Directive Response Recorded Date/ Time Advance Directives No January 18 8:11am Living Will No April 08, 2023 9 :22am Power of Straightener No April 08, 2023 9:22am Advance Directive Response Recorded Date/ Time Advance Directives No January 18 7:11am Living Will No October 05 023 12:50am Power of Straightener No October 05, 2023 12:50am Advance Directive Response Recorded Date/ Time Advance Directives No January 18 7:11am Living Will No November 15, 2 023 11:28am Power of Straightener No November 15, 2023 11:28am Advance Directive Response Recorded Date/ Time Advance Directives No January 18 7:11am Living Will No November 15, 2 023 4:24pm Power of Straightener No November 15, 2023 4:24pm Advance Directive Response Recorded Date/ Time Advance Directives No January 18 7:11am Living Will No November 18, 2 023 11:47am Power of Straightener No November 18, 2023 11:47am Advance Directive Response Recorded Date/ Time Advance Directives No January 18 7:11am Living Will No November 18 023 3:44pm Power of Straightener No November 18, 2023 3:44pm Advance Directive Response Recorded Date/ Time Advance Directives No January 18 7:11am Living Will No November 26 1:53pm Power of Straightener No November 26 1:53pm Advance Directive Response Recorded Date/ Time Advance Directives No January 18 7:11am Living Will No November 27 9:06am Power of Straightener No November 27 9:06am Advance Directive Response Recorded Date/ Time Advance Directives No January 18 7:11am Living Will No December 02 6:38am Power of Straightener No December 02, 2023 6:38am Advance Directive Response Recorded Date/ Time Advance Directives No January 18 7:11am Living Will No December 02 12:37pm Power of Straightener No December 02, 2023 12:37pm Advance Directive Response Recorded Date/ Time Advance Directives No January 18 7:11am Living Will No January 18, 2024 10:25am Power of Straightener No January 17 10:25am Advance Directive Response Recorded Date/ Time Advance Directives No January 18 8:11am Living Will No February 19, 2024 10:57am Power of Straightener No February 18 10:57am Advance Directive Response Recorded Date/ Time Advance Directives No January 18 8:11am Living Will No February 19, 2024 5:33pm Power of Straightener No February 18 5:33pm Advance Directive Response Recorded Date/ Time Living Will No December 17 11:30am Do you have a Healthcare Power of Straightener? No December 17, 2024 11:30am Do you have a Healthcare Power of Straightener? No April 02, 2025 7:26pm Living Will No December 09 3:59pm Do you have a Healthcare Power of Straightener? No December 09, 2024 3:59pm Living Will No January 11 025 2:51am Do you have a Healthcare Power of Straightener? No January 11, 2025 2:51am Advance Directives No January 18 8:11am Advance Directive Response Recorded Date/ Time Do you have a Healthcare Power of Straightener? No April 02, 2025 7:26pm Do you have a Healthcare Power of Straightener? No April 11, 2025 1:19pm Living Will No January 11 025 2:51am Do you have a Healthcare Power of Straightener? No January 11, 2025 2:51am Do you have a Healthcare Power of Straightener? No April 17, 2025 10:20pm Advance Directives No January 18 8:11am Advance Directive Response Recorded Date/ Time Do you have a Healthcare Power of Straightener? No April 02, 2025 7:26pm Do you have a Healthcare Power of Straightener? No April 11, 2025 1:19pm Do you have a Healthcare Power of Straightener? No April 18, 2025 6:43pm Living Will No January 11 025 2:51am Do you have a Healthcare Power of Straightener? No January 11, 2025 2:51am Do you have a Healthcare Power of Straightener? No April 17, 2025 10:20pm Advance Directives No January 18 8:11am Advance Directive Response Recorded Date/ Time Do you have a Healthcare Power of Straightener? No April 02, 2025 7:26pm Do you have a Healthcare Power of Straightener? No April 11, 2025 1:19pm Do you have a Healthcare Power of Straightener? No April 18, 2025 9:53pm Living Will No January 11 2:51am Do you have a Healthcare Power of Straightener? No January 11, 2025 2:51am Do you have a Healthcare Power of Straightener? No April 17, 2025 10:20pm Advance Directives No January 18 8:11am Advance Directive Response Recorded Date/ Time Do you have a Healthcare Power of Straightener? No April 02, 2025 7:26pm Do you have a Healthcare Power of Straightener? No April 11, 2025 1:19pm Do you have a Healthcare Power of Straightener? No April 18, 2025 9:53pm Do you have a Healthcare Power of Straightener? No April 17, 2025 10:20pm Advance Directives No January 18 8:11am Advance Directive Response Recorded Date/ Time Do you have a Healthcare Power of Straightener? No April 02, 2025 7:26pm Do you have a Healthcare Power of Straightener? No April 11, 2025 1:19pm Do you have a Healthcare Power of Straightener? No April 18, 2025 9:53pm Do you have a Healthcare Power of Straightener? No May 19, 2025 10:27pm Do you have a Healthcare Power of Straightener? No April 17, 2025 10:20pm Advance Directives No January 18 8:11am Advance Directive Response Recorded Date/ Time Do you have a Healthcare Power of Straightener? No April 02, 2025 7:26pm Do you have a Healthcare Power of Straightener? No April 11, 2025 1:19pm Do you have a Healthcare Power of Straightener? No April 18, 2025 9:53pm Do you have a Healthcare Power of Straightener? No May 19, 2025 10:27pm Do you have a Healthcare Power of Straightener? No April 17, 2025 10:20pm Do you have a Healthcare Power of Straightener? No June 03, 2025 2:30am Advance Directives No January 18 8:11am Advance Directive Response Recorded Date/ Time Do you have a Healthcare Power of Straightener? No April 02, 2025 7:26pm Do you have a Healthcare Power of Straightener? No April 11, 2025 1:19pm Do you have a Healthcare Power of Straightener? No April 18, 2025 9:53pm Do you have a Healthcare Power of Straightener? No May 19, 2025 10:27pm Do you have a Healthcare Power of Straightener? No April 17, 2025 10:20pm Do you have a Healthcare Power of Straightener? No June 03, 2025 8:49am Advance Directives No January 18 8:11am Advance Directive Response Recorded Date/ Time Do you have a Healthcare Power of Straightener? No April 02, 2025 7:26pm Do you have a Healthcare Power of Straightener? No April 11, 2025 1:19pm Do you have a Healthcare Power of Straightener? No April 18, 2025 9:53pm Do you have a Healthcare Power of Straightener? No May 19, 2025 10:27pm Do you have a Healthcare Power of Straightener? No July 05, 2025 8:52pm Do you have a Healthcare Power of Straightener? No April 17, 2025 10:20pm Do you have a Healthcare Power of Straightener? No June 03, 2025 8:49am Advance Directives No January 18 8:11am Advance Directive Response Recorded Date/ Time Do you have a Healthcare Power of Straightener? No April 02, 2025 7:26pm Do you have a Healthcare Power of Straightener? No April 11, 2025 1:19pm Do you have a Healthcare Power of Straightener? No April 18, 2025 9:53pm Do you have a Healthcare Power of Straightener? No May 19, 2025 10:27pm Do you have a Healthcare Power of Straightener? No July 05, 2025 8:52pm Do you have a Healthcare Power of Straightener? No July 22, 2025 11:31pm Do you have a Healthcare Power of Straightener? No April 17, 2025 10:20pm Do you have a Healthcare Power of Straightener? No June 03, 2025 8:49am Advance Directives No January 18 8:11am Advance Directive Response Recorded Date/ Time Do you have a Healthcare Power of Straightener? No April 11, 2025 1:19pm Do you have a Healthcare Power of Straightener? No April 18, 2025 9:53pm Do you have a Healthcare Power of Straightener? No May 19, 2025 10:27pm Do you have a Healthcare Power of Straightener? No July 05, 2025 8:52pm Do you have a Healthcare Power of Straightener? No July 22, 2025 11:31pm Do you have a Healthcare Power of Straightener? No July 31, 2025 9:02pm Do you have a Healthcare Power of Straightener? No April 17, 2025 10:20pm Do you have a Healthcare Power of Straightener? No June 03, 2025 8:49am Advance Directives No January 18 8:11am Advance Directive Response Recorded Date/ Time Do you have a Healthcare Power of Straightener? No April 11, 2025 1:19pm Do you have a Healthcare Power of Straightener? No April 18, 2025 9:53pm Do you have a Healthcare Power of Straightener? No May 19, 2025 10:27pm Do you have a Healthcare Power of Straightener? No July 05, 2025 8:52pm Do you have a Healthcare Power of Straightener? No July 22, 2025 11:31pm Do you have a Healthcare Power of Straightener? No July 31, 2025 9:02pm Do you have a Healthcare Power of Straightener? No April 17, 2025 10:20pm Do you have a Healthcare Power of Straightener? No June 03, 2025 8:49am Do you have a Healthcare Power of Straightener? No August 05, 2025 8:54pm Advance Directives [...] Weakness Weakness Weakness Weakness Weakness Weakness S/P [facility] 11/21/23 DIZZINESS,IMBALANCE/RX HERE fall Reason for [...] Weakness Weakness Weakness Weakness Weakness Weakness S/P [facility] 11/21/23 DIZZINESS,IMBALANCE/RX HERE fall FALL, HEAD [...] Weakness Weakness Weakness Weakness Weakness Weakness S/P [facility] 11/21/23 DIZZINESS,IMBALANCE/RX HERE fall FALL, HEAD [...] Weakness Weakness Weakness Weakness Weakness Weakness S/P [facility] 11/21/23 DIZZINESS,IMBALANCE/RX HERE fall FALL, HEAD [...] Weakness Weakness Weakness Weakness Weakness Weakness S/P [facility] 11/21/23 DIZZINESS,IMBALANCE/RX HERE fall FALL, HEAD [...] pain December 17, 2024 1 0:12am S/P [facility] 12/11December 19, 2024 1 :16pm 3 [...] vascular occlusive disease Javan goyal 2024 1:16pm 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 F ebruary 2024 1:52pm Hypoxemia December 24, 2024 1 :52pm Emphysema of lung December 24, 2024 1 :52pm Nicotine dependence, cigarettes, uncompl icated December 24, 2024 1:52pm Smoking greater than 30 pack years 2024 1:52pm Atherosclerotic heart diseas e of [place] coronary artery without angina pectoris January 10, [...] 2024 1:14pm Chief Complaint Admit Date S/P [facility] 12/11December 19, 2024 1 :16pm 3 [...] vascular occlusive disease Javan goyal 2024 1:16pm Jjibs-7-jmrsjlnaeek deficiency carrier F ebruary 2024 1:52pm Hypoxemia December 24, 2024 1 :52pm Emphysema of lung December 24, 2024 1 :52pm Nicotine dependence, cigarettes, uncompl icated December 24, 2024 1:52pm Smoking greater than 30 pack years Febru [email or web address] 1:52pm Atherosclerotic heart diseas e of [place] coronary artery without angina pectoris January 10, [...] 2024 1:14pm Chief Complaint Admit Date S/P [facility] 12/11December 19, 2024 1 :16pm 3 [...] vascular occlusive disease Ja nuary 2024 1:16pm Iodeq-3-rkgdiveoomj deficiency carrier F ebruary 2024 1:52pm Hypoxemia December 24, 2024 1 :52pm Emphysema of lung December 24, 2024 1 :52pm Nicotine dependence, cigarettes, uncompl icated December 24, 2024 1:52pm Smoking greater than 30 pack years Febru vince 2024 1:52pm Atherosclerotic heart diseas e of [place] coronary artery without angina pectoris January 10, [...] 12:30 pm Reason for Visit Admit Date Hamhf-6-gsbkzthyhoy deficiency carrier F ebruary 2024 1:52pm Hypoxemia December 24, 2024 1 :52pm Emphysema of lung December 24, 2024 1 :52pm Nicotine dependence, cigarettes, uncompl icated December 24, 2024 1:52pm Smoking greater than 30 pack years 2024 1:52pm Atherosclerotic heart diseas e of [place] coronary artery without angina pectoris January 10, [...] Admit Date Atherosclerotic heart diseas e of [place] coronary artery without angina pectoris January 10, [...] chest pain July 31, 2025 9:02pm S/P [facility] 07/23August 05, 2025 12:46pm Reason for [...] Procedures Vascular US carotid artery duplex bilateral Krisotpher Main MD [address] [place] [address] Referral ID Status Reason Start Date Expiration Date Visits Requested Visits Authorized [id number] Pending Review Perform Procedure 2 03/02/2023 1 1 Additional Source Comments INFORMATION SOURCE (unrecogn ized section and content) DATE CREATED AUTHOR 05/13/2018 [facility] DATE CREATED AUTHOR AUTHOR'S ORGANIZ ATION 05/13/2018 [facility] DATE CREATED AUTHOR AUTHOR'S ORGANIZ ATION 12/13/2021 [facility] DATE CREATED AUTHOR AUTHOR'S ORGANIZ ATION 01/16/2024 [facility] ([place]) DATE CREATED AUTHOR AUTHOR'S ORGANIZ ATION 07/25/2025 [facility] DATE CREATED AUTHOR AUTHOR'S ORGANIZ ATION 08/08/2025 [facility] Goals (unrecognized section and content) Goals may [...] Active Member Role Status Dates Dr. Daron eBnton MD Family Provider Active Dr. Daron Benton [...] Inactive Member Role Status Dates Dr. Daron Benotn MD Primary Care Provider Active Dr. Orlando [...] Primary Care Provider, Attending P rovider Active Photocopy Operator Relationship Specialty Start Date End Date Daron Benton [address] [place] [address] PCP - General 06/23/20 Photocopy Operator Relationship Specialty Start Date End Date Daron Benton [address] [place] [address] PCP - General 06/23/20 Photocopy Operator Relationship Specialty Start Date End Date Daron Benton [address] [place] [phone] PCP - General 06/23/20 Team Status: Inactive [...] Dr. Yasmani Haynes DO Emergency Provider Active Photocopy Operator Relationship Specialty Start Date End Date Daron Benton [address] [place] [address] PCP - General 06/23/20 Team Status: Inactive [...] Admit Provider, Other Provider A ctive Kt Firend MD Other Provider Active Dr. Ruby Wynn [...] Active Keyona Davidson MD Other Provider Active Photocopy Operator Relationship Specialty Start Date End Date Daron Benton [address] [place] [phone] PCP - General 06/23/20 Team Status: Active [...] Phil Terry MD Other Provider Active SARI EMNA MD Other Provider Active Jose Santos MD [...] Willoughby MD Emergency Provider Active Dr. Roman cMkeon MD [...] Status: Active Member Role Status Dates Dr. Darno Benton MD Primary Care Provider Active Dr. Bhavik Smiley MD Attending Provider Active Dr. Roman Mckeon MD Referring Provider Active Team Status: Active Member Role Status Dates Dr. Daron Benton MD Primary Care Provider Active Dr. Bhavik Smiley MD Attending Provider, Referring Provider Active Photocopy Operator Relationship Specialty Start Date End Date Daron Benton MD [address] [place] [id number] PCP - General Family Medicine 03/12/19 Tye Barnett MD [address] [place] [address] Vascular Surgery 12/22/17 Photocopy Operator Relationship Specialty Start Date End Date Daron Benton [address] [facility] [address] [place] [phone] PCP - General 06/23/20 Photocopy Operator Relationship Specialty Start Date End Date Daron Benton [address] [facility] [address] [place] [address] PCP - General 06/23/20 Photocopy Operator Relationship Specialty Start Date End Date Daron Benton [address] [facility] [address] [place] [phone] PCP - General 06/23/20 Photocopy Operator Relationship Specialty Start Date End Date Daron Benton [address] [facility] [address] [place] [phone] PCP - General 06/23/20 Team Status: Active [...] Active Start: December 09, 2024 Dr. Kofi Weinre MD Attending Provider Activ e Start: December [...] April 02, 2025 End: April 02, 2025 Photocopy Operator Relationship Specialty Start Date End Date Daron Benton [address] [facility] [address] [place] [address] PCP - General 06/23/20 Team Status: Inactive [...] May 06, 2025 End: May 06, 2025 Photocopy Operator Relationship Specialty Start Date End Date Daron Benton [address] [place] [phone] PCP - General 06/23/20 Team Status: Active [...] Active Start: April 19, 2025 Dr. Roman Mcekon MD Other Provider Active Star t: April [...] Active Sta rt: April 18, 2025 Dr. aSchin Murillo MD Admit Provider Active Start: April [...] Provider Active Start: April 21, 2025 Dr. Sacihn Murillo MD Referring Provider Active Start: April [...] 2025 End: June 12, 2025 Karen Dias LOCKSTITCH SLEEVE MAKER, LOCKSTITCH SLEEVE MAKER-C Attending Provider Active Start: June 12, [...] 2025 End: June 10, 2025 Karen Dias LOCKSTITCH SLEEVE MAKER, LOCKSTITCH SLEEVE MAKER-C Attending Provider Active Start: June 10, 2025 End: June 10, 2025 Team Status: Inactive Member Role/Relationship Status Dates Dr. Daron Benton MD Primary Care Provider Active Start: June 12, 2025 End: June 12, 2025 Karen Dias LOCKSTITCH SLEEVE MAKER, LOCKSTITCH SLEEVE MAKER-C Attending Provider Active Start: June 12, [...] Star t: June 04, 2025 Dr. Roman Mckoen MD Referring Provider Active Start: June 04, [...] 2025 End: June 10, 2025 Karen Dias LOCKSTITCH SLEEVE MAKER, LOCKSTITCH SLEEVE MAKER-C Attending Provider Active Start: June 10, 2025 End: June 10, 2025 Team Status: Inactive Member Role/Relationship Status Dates Dr. Daron Benton MD Primary Care Provider Active Start: June 12, 2025 End: June 12, 2025 Karen Dias NP, LOCKSTITCH SLEEVE MAKER-C Attending Provider Active Start: June 12, [...] July 22, 2025 End: July 23, 2025 Photocopy Operator Relationship Specialty Start Date End Date Daron Benton [address] [place] [phone] PCP - General 06/23/20 Team Status: Active [...] physician Active Start: April 20, 2025 Dr. Roamn Mckeon MD Nurse Practitioner Active Start: April [...] 03, 2025 Dr. Yasmani Haynes DO Emergency Department [...] 03, 2025 Dr. Yasmani Haynes DO Emergency Department [...] A ctive Start: June 07, 2025 Dr. Roman Mckeon MD Admitting physician [...] End: June 10, 2025 Karen Dias NP, LOCKSTITCH SLEEVE MAKER-C Attending physician Active Start: June 10, 2025 End: June 10, 2025 Team Status: Inactive Member Role/Relationship Status Dates Dr. Daron Benton MD Primary care physician Active Start: June 12, 2025 End: June 12, 2025 Karen Dias LOCKSTITCH SLEEVE MAKER, LOCKSTITCH SLEEVE MAKER-C Attending physician Active Start: June 12, 2025 [...] 23, 2025 Dr. Ramírez Onofre MD [facility] Active Start: July 22, 2025 [...] or prosecute any alcohol or drug abuse patient.[facility] FOR RECORDS PERTAINING TO PATIENTS WHO ARE [...] BE BASED ON THE PRIMARY CLINICAL RECORDS. [facility]. provides no warranty or guarantee of the accuracy or completeness of information in this document.
[2025-08-09 00:37] VITALS: BP 166/94; PULSE 56; RESP 18; TEMP 36.4; O2SAT 100; BMI 17.5
[2025-08-09] MEDS: 0.9% Normal Saline (1000mL) 1,000 ML 100 ML IV (01:03)
[2025-08-09 01:49] LABS: Procalcitonin 0.10 ng/mL (<=0.10)
[2025-08-09 01:53] LABS: Creatinine, Urine (random) 117.00 mg/dL (28.00-217.00)
[2025-08-09 05:25] VITALS: BMI 17.5
[2025-08-09 05:35] VITALS: BP 114/71; PULSE 54; RESP 16; TEMP 36.4; O2SAT 99
[2025-08-09 06:37] LABS: Hematocrit 32.1 % (37-47); Hemoglobin 10.7 g/dL (12.0-15.0); Immature Granulocytes Count 0.010 X10^3/uL (0.0-0.0); Mean Corp Hgb Conc 33.3 g/dL (32-36); Mean Corpuscular Volume 85.6 fL (81-99); Mean Platelet Vol. 10.1 fl (6.2-12.0); NRBC Flagged by Analyzer 0 % (0-5); Platelet Count 106 K/mm3 (150-450); RBC Distribution Width CV 17.8 % (11.6-14.6); RBC Distribution Width SD 54.8 fl (35.1-43.9); Red Blood Count 3.75 M/mm3 (4.2-5.4); White Blood Count 5.6 K/mm3 (4.4-11.0)
[2025-08-09 07:08] LABS: AST(SGOT) 22 U/L (<=31); Alanine Aminotransfer ALT/SGPT 20 U/L (<=34); Albumin, Serum 3.8 g/dL (3.4-4.8); Alkaline Phosphatase 94 U/L (35-104); Anion Gap 14 (5-15); BUN 78 mg/dL (4-19); BUN/Creat Ratio 19.7 RATIO (10-20); Calcium,Total 9.2 mg/dL (7.6-11.0); Carbon Dioxide 24.7 mmol/L (21.0-32.0); Chloride 102 mmol/L (98-108); Estimated Creatinine Clearance 9.86 ml/min (50-250); Globulin 2.5 g/dL (2.2-4.2); Glucose 88 mg/dL (70-99); Potassium 4.2 mmol/L (3.3-5.1)
--- NOTE | 2025-08-09 08:00 | CT_ITS ---
PROCEDURE: BRAIN/HEAD WITHOUT CONTRAST 08/09/2025 REASON FOR EXAM: FALL, ON NOAC, REPEAT CT TECHNIQUE: Procedure Code: CTBR Modality: CT Procedure: BRAIN/HEAD WITHOUT CONTRAST Coronal and Sagittal reconstruction series were provided. One or more dose reduction techniques were used (e.g., Automated exposure control, adjustment of the mA and/or kV according to patient size, use of iterative reconstruction technique. RADIATION DOSE SUMMARY: CTDlvol: 44.99 mGy DLP: 779.24 mGycm COMPARISON: CT head 07/22/2025. FINDINGS: Brain: Low density in the periventricular white matter suggests mild chronic small vessel ischemic changes. No acute territorial infarction. No acute intracranial hemorrhage. Status post coiling of anterior communicating artery aneurysm. Streak artifact which limits the evaluation. No mass-effect or midline shift. CSF Spaces: Mild generalized cerebral atrophy Sinuses/Mastoids: Clear at visualized levels Bones: No acute bony abnormalities. Soft tissues: Right frontal hematoma. CT/Brain/Head without Contrast IMPRESSION: No acute intracranial abnormalities. Reading Location: [id number]
[2025-08-09 08:34] VITALS: BP 149/64; PULSE 57; RESP 18; TEMP 36.2; O2SAT 98
--- NOTE | 2025-08-09 08:42 | CT_ITS ---
PROCEDURE: ABDOMEN/PELVIS WITHOUT CONT 08/09/2025 REASON FOR EXAM: KIDNEY STONE TECHNIQUE: Procedure Code: CTABDPEL Modality: CT Procedure: ABDOMEN/PELVIS WITHOUT CONT Noncontrast technique limits evaluation of the abdominal and pelvic viscera. Coronal and Sagittal reconstruction series were provided. One or more dose reduction techniques were used (e.g., Automated exposure control, adjustment of the mA and/or kV according to patient size, use of iterative reconstruction technique). RADIATION DOSE SUMMARY: CTDlvol: 6.04 mGy DLP: 271.80 mGycm COMPARISON: CT abdomen and pelvis 04/02/2025. FINDINGS: Lung bases: Clear. Liver: Unremarkable. Gallbladder: Unremarkable. No biliary dilation. Spleen: Unremarkable. Pancreas: Unremarkable. Adrenals: Unremarkable. Kidneys: Perinephric fat stranding. No nephrolithiasis. No hydronephrosis. Bladder: The bladder is unremarkable. Reproductive Organs: Unremarkable. Bowel: No bowel wall thickening. No bowel obstruction. Large amount of condensed fecal load in the colon. Appendix: No evidence of acute appendicitis. Lymph nodes: No lymphadenopathy. Vasculature: Atherosclerotic calcifications. No aneurysm. Peritoneum / Retroperitoneum: No free air or free fluid. Bones: No acute bony abnormalities. CT/Abdomen/Pelvis without Cont IMPRESSION: Perinephric fat stranding. No hydronephrosis or nephrolithiasis. Correlation with urinalysis is recommended. Large amount of fecal load in the colon. Reading Location: [facility]
[2025-08-09] MEDS: Ensure Plus High Protein 120 ML LIQUID PO (09:26)
--- NOTE | 2025-08-09 15:27 | PN_ITS ---
Subjective Subjective Patient seen and examined with her nurse by her bedside. Patient is confused and kept asking where she was. She knew her name but could not tell her date of or the year or where she was. Unable to do comprehensive review of system though she complained of headache. She has remained hemodynamically stable. She had a repeat CT of the brain today which did not show any evidence of intracranial bleed. Objective Data Objective Data Vital Signs: Vital Signs Temp Pulse Resp BP Pulse Ox O2 Del Method 97.1 F L 57 L 18 149/64 H 98 Room Air 08/09/25 08:34 08/09/25 08:34 08/09/25 08:34 08/09/25 08:34 08/09/25 08:34 08/09/25 08:34 Oxygen Delivery Method Room Air Weight: 105 lb 6.095 oz Body Mass Index (BMI) 17.5 Intake & Output: Intake and Output for Last 24 Hours 08/07/25 08/08/25 08/09/25 23:59 23:59 23:59 Intake Total 0 / 0 1375 / 1375 Output Total 600 / 600 Balance 0 / 0 775 / 775 Medical Nutrition Assessment Dietitian: Malnutrition Criteria Met Start: 08/09/25 13:03 Freq: Status: Active Protocol: Document 08/09/25 13:04 RMA (Rec: 08/09/25 13:04 RMA [id number]) Nutrition Malnutrition Evidence of Yes Malnutrition Exists Malnutrition ( Chronic moderate): Evidenced By Suboptimal Energy Intake (Moderate),Weight Loss ( Moderate),Physical Changes (Moderate) Clinical Problem Chronic Disease or Condition Related Malnutrition Etiology moderate protein-calorie malnutrition in the context of chronic disease and debility related to inadequate oral/energy intake Signs/Symptoms as evidenced by BMI 17.5, ~ 4-5% unintentional weight loss x past 2-3 months, moderate muscle wasting and fat depletion in the clavicle, face, arms and legs as well as PO meeting less than 75% estimated nutrition needs Status Active Problem Recommendation Dietitian Will liberalize diet to regular/no added salt. Recommendations/ Will continue 120mL ensure plus HP 3 times per day w/ Changes medpass. Will add additional ONS as needed if weight/oral intake decline. Lab / Micro Data 08/09/25 06:08 08/09/25 06:08 Labs: Laboratory Results - last 24 hr 08/08/25 22:17: WBC 9.8, RBC 4.22, Hgb 11.7 L, Hct 36.3 L, MCV 86.0, MCH 27.7, MCHC 32.2, RDW Std Deviation 55.8 H, RDW Coeff of David 17.9 H, Plt Count 122 L, MPV 11.0, Immature Gran % (Auto) 0.500, Neut % (Auto) 80.1 H, Lymph % (Auto) 8.0 L, [place] % (Auto) 7.7, Eos % (Auto) 3.4, Baso % (Auto) 0.3, Absolute Neuts (auto) 7.9 H, Absolute Lymphs (auto) 0.78 L, Nucleated RBC % 0, PT 14.9, INR 1.2, APTT 30.6, Sodium 137, Potassium 4.4, Chloride 98, Carbon Dioxide 22.8, Anion Gap 16 H, BUN 80 H, Creatinine 3.90 H, Estim Creat Clear Calc 10.42 L, Est GFR (MDRD) Non-Af 12 L, BUN/Creatinine Ratio 20.5 H, Glucose 108 H, Calcium 9.4, Magnesium 3.0 H, Total Bilirubin 0.35, Direct Bilirubin 0.18, AST 24, ALT 23, Alkaline Phosphatase 104, Ammonia 12.1, Total Creatine Kinase 180, Total Protein 6.9, Albumin 4.0, Globulin 2.9, Procalcitonin 0.10, Ethyl Alcohol < 10.1 08/08/25 22:47: Phosphorus 5.6 H, TSH 2.120 08/08/25 23:00: Urine Color Yellow, Urine Clarity Clear, Urine pH 5.0, Ur Specific [place] 1.020, Urine Protein 30 H, Urine Glucose (UA) Normal, Urine Ketones Negative, Urine Occult Blood 10 H, Urine Nitrite Negative, Urine Bilirubin Negative, Urine Urobilinogen Normal, Ur Leukocyte Esterase 25 H, Urine RBC 0-5 SEEN, Urine WBC 5-10 SEEN, Ur Squamous Epith Cells 0-5 SEEN, Ur Renal Epithelial Cell 0-5 SEEN, Urine Bacteria 2+, Hyaline Casts 10-25 SEEN, Urine Mucus 0 SEEN, Ur Random Sodium 27, Urine Creatinine 117.00, Urine Opiates Screen NEGATIVE, U Buprenorphine Qual NEGATIVE, Ur Oxycodone Screen PRESUMPTIVE POSITIVE, Urine Methadone Screen NEGATIVE, Urine Fentanyl Screen NEGATIVE, Ur Barbiturates Screen NEGATIVE, Ur Phencyclidine Scrn NEGATIVE, Ur Amphetamines Screen NEGATIVE, U Benzodiazepines Scrn NEGATIVE, Urine Cocaine Screen NEGATIVE, U Cannabinoids Screen NEGATIVE 08/09/25 06:08: WBC 5.6, RBC 3.75 L, Hgb 10.7 L, Hct 32.1 L, MCV 85.6, MCH 28.5, MCHC 33.3, RDW Std Deviation 54.8 H, RDW Coeff of David 17.8 H, Plt Count 106 L, MPV 10.1, Immature Gran % (Auto) 0.200, Neut % (Auto) 65.8, Lymph % (Auto) 16.0 L, [place] % (Auto) 11.4 H, Eos % (Auto) 6.1 H, Baso % (Auto) 0.5, Absolute Neuts (auto) 3.7, Absolute Lymphs (auto) 0.89, Nucleated RBC % 0, Sodium 140, Potassium 4.2, Chloride 102, Carbon Dioxide 24.7, Anion Gap 14, BUN 78 H, C reatinine 3.95 H, Estim Creat Clear Calc 9.86 L*, Est GFR (MDRD) Non-Af 12 L, BUN/Creatinine Ratio 19.7, Glucose 88, Calcium 9.2, Total Bilirubin 0.37, AST 22, ALT 20, Alkaline Phosphatase 94, Total Protein 6.3, Albumin 3.8, Globulin 2.5, Albumin/Globulin Ratio 1.5 Radiography Diagnostic Testing: Radiology Impression Brain CT 08/08/25 22:13 IMPRESSION: 1. No acute intracranial abnormality. 2. Moderate right frontal scalp hematoma/contusion. 3. No acute calvarial or maxillofacial fracture. 4. No acute cervical spine fracture or malalignment. 5. Additional non-acute ancillary findings, as described above. Reading Location: [facility] Cervical Spine CT 08/08/25 22:13 IMPRESSION: 1. No acute intracranial abnormality. 2. Moderate right frontal scalp hematoma/contusion. 3. No acute calvarial or maxillofacial fracture. 4. No acute cervical spine fracture or malalignment. 5. Additional non-acute ancillary findings, as described above. Reading Location: [id number] Chest X-Ray 08/08/25 22:13 IMPRESSION: No Acute Findings. Reading Location[facility] Facial/Sinus 08/08/25 22:13 IMPRESSION: 1. No acute intracranial abnormality. 2. Moderate right frontal scalp hematoma/contusion. 3. No acute calvarial or maxillofacial fracture. 4. No acute cervical spine fracture or malalignment. 5. Additional non-acute ancillary findings, as described above. Reading Location: [id number] Pelvis X-Ray 08/08/25 22:13 IMPRESSION: No radiographic evidence of an acute osseous injury. - Findings, limitations and recommendations discussed above. Reading Location: [facility] Shoulder X-Ray 08/08/25 22:15 IMPRESSION: No radiographic evidence of an acute osseous injury at the right shoulder. - Findings discussed above. Reading Location: [facility] Brain CT 08/09/25 08:00 IMPRESSION: No acute intracranial abnormalities. Reading Location: [facility] Abdomen/Pelvis CT 08/09/25 08:42 IMPRESSION: Perinephric fat stranding. No hydronephrosis or nephrolithiasis. Correlation with urinalysis is recommended. Large amount of fecal load in the colon. Reading Location: [facility] Physical Exam Const alert and no apparent distress Constitutional Narrative: confused, restless, alert and oriented only to self General Appearance: cooperative HEENT normocephalic, head/scalp atraumatic, moist oral mucous membranes and oropharynx normal Eyes EOMs intact bilaterally Neck supple and no JVD Lymph Lymphatic: no lymphedema noted Resp normal respiratory effort, normal air movement and clear to auscultation bilaterally Resp Narrative: on room air Cardio regular rate, regular rhythm, S1 normal heart sound, S2 normal heart sound and no murmurs GI normal to inspection, nondistended, normoactive bowel sounds, soft to palpation and non-tender Extremity normal capillary refill, no clubbing, cyanosis or edema and no calf tenderness General Extremity: no tenderness to palpation of joints or extremities Skin General Skin Exam: no breakdown Neuro no focal motor deficits Motor Exam: general weakness Psych Psych Narrative: confused, alert and oriented only to self. Assessment & Plan Assessment/Plan (1) Altered mental status: (2) Head injury: (3) Acute kidney injury: PLAN: Plan # Debility due to mechanical fall with resultant head injury * Patient admitted with a fall. She sustained a laceration on his scalp. CT of the brain did not show any evidence of intracranial bleed and showed a moderate right frontal scalp hematoma/contusion. * She had a repeat CT of the brain which did not show any evidence of any intracranial bleed. * On p.o. Tylenol as needed for pain as well as p.o. oxycodone and IV morphine as needed * PT OT on board. For precautions. * #CHRISTPOHER: * Creatinine is 3.95. Creatinine was 3.9 on admission. Baseline creatinine from July 22, 2025 was 1.14 and is now 3.95. CT of the abdomen and pelvis did not show any evidence of kidney stones. * Consult nephrology * Hydrate gently with IV fluids. * Insert Palomo catheter to monitor urine output #Scalp hematoma due to mechanical fall: Management as above #Acute encephalopathy: Patient confused. She is alert and oriented to person only. May be due to the uremia from the #Chronic hypoxic respiratory failure due to COPD: Currently on 2 L of oxygen. Breathing treatments bronchodilators. Titrate oxygen to maintain saturation above 90%. #CAD and PAD: On aspirin and Coreg. Not on statin due to intolerance. #Hypertension: On lisinopril which is on hold due to CHRISTOPHER. On carvedilol. #History of brain aneurysm: S/p coiling. #Paroxysmal A-fib: On Coreg. Eliquis on hold due to mechanical fall #Anxiety and depression: On Paxil which was held due to CHRISTOPHER #History of TIA: On aspirin. Eliquis on hold #History of carotid stenosis s/p bilateral carotid endarterectomy: On aspirin. Not on statin. Eliquis currently on hold. #Hypertension: Amlodipine and Coreg. IV hydralazine as needed. Lisinopril held due to CHRISTOPHER #Hypothyroidism: S/p thyroidectomy: On Synthroid #Nicotine dependence: Counseled to quit. DVT prophylaxis: On Eliquis which is currently on hold. SCDs. Charges/Coding Visit Charges Inpatient E&M: 89986 Subs Hosp L2
--- NOTE | 2025-08-09 15:58 | CPS ---
patient does not want treatments. she states she does not take them at home. there does not appear to be any breathing medicine on her home med list.
[2025-08-09 17:19] VITALS: BP 138/62; PULSE 62; RESP 18; TEMP 36.7; O2SAT 98
[2025-08-09 20:44] VITALS: BP 146/83; PULSE 61; RESP 18; TEMP 36.2; O2SAT 100
[2025-08-10] VITALS (10 sets, daily range): BP systolic 147–184; BP diastolic 73–84; PULSE 56–82; RESP 15–18; TEMP 36.6–36.9; O2SAT 99–100
[2025-08-10] MEDS: 0.9% Saline Lock 10 ML Syringe IV ×2 (02:54→09:00)
[2025-08-10] MEDS: Glycerin/Hypromellose/PEG400 15 ml Bottle 1 DRP EACH EYE (03:35)
[2025-08-10 05:44] LABS: Hematocrit 33.0 % (37-47); Hemoglobin 10.7 g/dL (12.0-15.0); Immature Granulocytes Count 0.030 X10^3/uL (0.0-0.0); Mean Corp Hgb Conc 32.4 g/dL (32-36); Mean Corpuscular Volume 86.8 fL (81-99); Mean Platelet Vol. 10.2 fl (6.2-12.0); NRBC Flagged by Analyzer 0 % (0-5); Platelet Count 100 K/mm3 (150-450); RBC Distribution Width CV 18.0 % (11.6-14.6); RBC Distribution Width SD 57.1 fl (35.1-43.9); Red Blood Count 3.80 M/mm3 (4.2-5.4); White Blood Count 8.1 K/mm3 (4.4-11.0)
[2025-08-10 06:11] LABS: Anion Gap 12 (5-15); BUN 59 mg/dL (4-19); BUN/Creat Ratio 31.7 RATIO (10-20); Calcium,Total 9.3 mg/dL (7.6-11.0); Carbon Dioxide 23.0 mmol/L (21.0-32.0); Chloride 104 mmol/L (98-108); Estimated Creatinine Clearance 23.74 ml/min (50-250); Glucose 100 mg/dL (70-99); Potassium 4.0 mmol/L (3.3-5.1)
--- NOTE | 2025-08-10 07:00 | US_ITS ---
PROCEDURE: US KIDNEY AND BLADDER 08/10/2025 REASON FOR EXAM: CHRISTOPHER TECHNIQUE: Procedure Code: USKI Modality: US Procedure: KIDNEY AND BLADDER COMPARISON: Abdominal CT 08/09/2025. FINDINGS: Both kidneys have a grossly normal sonographic appearance. Right kidney measures 9.3 x 4 x 2.8 cm. Left kidney measures 7.6 x 4.6 x 4.2 cm. No echogenic renal calculi or hydronephrosis is seen on either side. Trace nonspecific fluid/edema adjacent to the right kidney. Urinary bladder is decompressed around a Palomo catheter, limiting its assessment. US/Kidney and Bladder IMPRESSION: Unremarkable sonographic appearance of the kidneys. No hydronephrosis. Urinary bladder decompressed around a Palomo catheter. Reading Location: [facility]
--- NOTE | 2025-08-10 08:29 | PCM.PN.HOSP ---
Reason for Visit Chief Complaint: Fall, confusion. Subjective Subjective Patient states that she did discuss her care with her neurologist Dr. Main and he is concerned that her fall and subsequent hospitalization were related to a flare of her MS. I explained that currently we are unable to do an MRI as she is not a candidate for contrast at this time due to her acute renal injury however I do suspect since she is improving quite rapidly with IV fluids and appears to be prerenal that we will be able to do 1 tomorrow and then go from there. Patient voiced understanding. She is having some vomiting that she feels is related to drainage. We will go ahead and add Mucinex. No other issues at this time. Objective Data Objective Data Vital Signs: Vital Signs Temp Pulse Resp BP Pulse Ox O2 Del Method O2 Flow Rate 98.5 F 72 16 147/73 H 100 Nasal Cannula 3 08/10/25 03:33 08/10/25 03:33 08/10/25 03:33 08/10/25 03:33 08/10/25 03:33 08/10/25 08:04 08/10/25 08:04 Oxygen Flow Rate (L/min) 3 Oxygen Delivery Method Nasal Cannula Weight: 54.5 kg Body Mass Index (BMI) 20.0 Intake & Output: Intake and Output for Last 24 Hours 08/08/25 08/09/25 08/10/25 23:59 23:59 23:59 Intake Total 0 / 0 1675 / 2035 360 / 360 Output Total 2000 / 2400 1200 / 1200 Balance 0 / 0 -325 / -365 -840 / -840 Medical Nutrition Assessment Dietitian: Malnutrition Criteria Met Start: 08/09/25 13:03 Freq: Status: Active Protocol: Document 08/09/25 13:04 RMA (Rec: 08/09/25 13:04 RMA [id number]) Nutrition Malnutrition Evidence of Yes Malnutrition Exists Malnutrition ( Chronic moderate): Evidenced By Suboptimal Energy Intake (Moderate),Weight Loss ( Moderate),Physical Changes (Moderate) Clinical Problem Chronic Disease or Condition Related Malnutrition Etiology moderate protein-calorie malnutrition in the context of chronic disease and debility related to inadequate oral/energy intake Signs/Symptoms as evidenced by BMI 17.5, ~ 4-5% unintentional weight loss x past 2-3 months, moderate muscle wasting and fat depletion in the clavicle, face, arms and legs as well as PO meeting less than 75% estimated nutrition needs Status Active Problem Recommendation Dietitian Will liberalize diet to regular/no added salt. Recommendations/ Will continue 120mL ensure plus HP 3 times per day w/ Changes medpass. Will add additional ONS as needed if weight/oral intake decline. Lab / Micro Data 08/10/25 05:27 08/10/25 05:27 Labs: Laboratory Results - last 24 hr 08/10/25 05:27: WBC 8.1, RBC 3.80 L, Hgb 10.7 L, Hct 33.0 L, MCV 86.8, MCH 28.2, MCHC 32.4, RDW Std Deviation 57.1 H, RDW Coeff of David 18.0 H, Plt Count 100 L, MPV 10.2, Immature Gran % (Auto) 0.400, Neut % (Auto) 79.3 H, Lymph % (Auto) 8.2 L, [place] % (Auto) 7.7, Eos % (Auto) 3.9, Baso % (Auto) 0.5, Absolute Neuts (auto) 6.4, Absolute Lymphs (auto) 0.66 L, Nucleated RBC % 0, Sodium 139, Potassium 4.0, Chloride 104, Carbon Dioxide 23.0, Anion Gap 12, BUN 59 H, Creatinine 1.87 H, Estim Creat Clear Calc 23.74 L, Est GFR (MDRD) Non-Af 28 L, BUN/Creatinine Ratio 31.7 H, Glucose 100 H, Calcium 9.3 Radiography Diagnostic Testing: Radiology Impression Brain CT 08/09/25 08:00 IMPRESSION: No acute intracranial abnormalities. Reading Location: [facility] Abdomen/Pelvis CT 08/09/25 08:42 IMPRESSION: Perinephric fat stranding. No hydronephrosis or nephrolithiasis. Correlation with urinalysis is recommended. Large amount of fecal load in the colon. Reading Location: [facility] Physical Exam Const alert, oriented x3, no apparent distress, average body habitus and well nourished Constitutional Narrative: Older, white female, lying in bed, appears somewhat chronically debilitated but currently comfortable, does not look toxic, nursing at bedside HEENT moist oral mucous membranes HEENT Narrative: Bilateral Lira sign noted from head trauma with significant periorbital ecchymosis right greater than left and swelling periorbitally right greater than left but noted bilaterally Head and Scalp: normocephalic Eyes conjunctivae normal Eyes Narrative: No scleral icterus Neck supple Neck Narrative: Trachea midline Resp normal respiratory effort, no retractions, no use of accessory muscles and clear to auscultation bilaterally Auscultation: Negative for rales, rhonchi or wheezes Cardio regular rate, regular rhythm, S1 normal heart sound, S2 normal heart sound, no murmurs, no rub, no gallops and no clicks GI normal to inspection, nondistended, normoactive bowel sounds, soft to palpation and non-tender Extremity no clubbing, cyanosis or edema Extremity Narrative: 2+ pedal pulses, 2+ radial pulses Neuro moves all extremities Neuro Narrative: Patient with generalized weakness however difficult to tell what is acute or chronic. Speech: speech normal Psych affect normal Psych Narrative: Extremely pleasant, eye contact is good and patient interacts appropriately Assessment & Plan Assessment/Plan (1) CHRISTOPHER (acute kidney injury): (2) Head injury: (3) Dehydration: (4) Nausea and vomiting: (5) Fall: (6) Closed head injury: PLAN: Plan Closed head injury/scalp contusion - Patient with significant Lira sign - CT of the brain x 2 unremarkable - CT of the face and sinuses unremarkable - CT cervical spine unremarkable - Per discussion with patient her neurologist, Dr. Main is concerned that this may be related to an acute exacerbation of her MS -Once renal function has improved will obtain a noncontrasted MRI of her brain--> likely tomorrow--> discussed delay with patient - Acute confusion on presentation likely related to this and patient may have concussion/postconcussive symptoms - Mental status is clear today CHRISTOPHER on CKD stage II secondary to dehydration - Baseline renal function appears to be between 1 and 1.2 - FeNa was obtained and was found to be 0.66 consistent with prerenal etiology - Will hydrate with 2 L IV fluids and reassess in a.m. - Discontinue nephrology consult as patient is improving considerably with IV fluids - DC Palomo - Renal ultrasound pending Fall - As noted above neurology feels it is likely related to an exacerbation of MS - Will check contrasted MRI soon as renal function will allow-suspect tomorrow - PT/OT placement - Highly anticipate patient will need placement at discharge Constipation - CT of the abdomen pelvis showed large fecal load in the colon - Continue home Colace twice daily - Add MiraLAX 17 g twice daily for now with holding for liquid stool - Continue to monitor stool output Nausea and vomiting - The patient attributes mostly to nasal drainage/postnasal drip - For now we will start Mucinex 1200 p.o. twice daily - may also be related to significant constipation see still regimen as above Toxic/metabolic encephalopathy - Suspect related to closed head injury - Patient may have some mild postconcussive symptoms - TSH within normal limits - Clinically improved COPD with chronic hypoxic respiratory failure second alpha-1 antitrypsin deficiency - Patient wears 2.5 L at night and 3 L as needed during the day - Continue home budesonide - As needed albuterol - I-S Valvular heart disease - Patient with moderate mitral valve stenosis - Murmur noted on exam - EF of 65% with negative bubble study - Continue outpatient follow-up CAD/PAD/essential hypertension/hyperlipidemia/bilateral carotid artery stenosis/TIA - Patient with previous PCI for coronary arteries as well as peripheral iliac artery - History of carotid endarterectomy - Continue baby aspirin - Okay to reinitiate apixaban with negative head CT - Continue Coreg - Continue amlodipine - Continue statin PAF - Currently in sinus rhythm - Continue beta-blockade - Restart Eliquis with negative CT Psoriatic arthritis - Patient not on any suppressive therapy - No signs of acute rash - Monitor MS - Follows with neurology - Contrasted MRI once renal function improves - If any abnormalities noted on contrasted MRI will call primary neurologist Chronic normocytic anemia - Hemoglobin stable Chronic thrombocytopenia - Slight drop but relatively stable - repeat lab in a.m. - Check coags - May need outpatient follow-up at oncology if persistent Hypothyroidism - Continue home levothyroxine -TSH is within normal limits - History of partial thyroidectomy Allergic rhinitis - Suspect contributing to her postnasal drip - Continue home nasal spray - Mucinex as noted above GERD - Continue home PPI History of brain aneurysm - Previous coiling - No acute problems Tobacco abuse - Patient continues to smoke - Nicotine replacement available if needed - Encourage cessation DVT prophylaxis - Restart home Eliquis with negative CT brain CODE STATUS - Full code Charges/Coding Visit Charges Inpatient E&M: 68614 [facility] L3
[2025-08-10] MEDS: Lactated Ringers 1,000 ML 125 ML IV ×2 (09:00→17:37)
[2025-08-10] MEDS: Ensure Plus High Protein 120 ML LIQUID PO (09:04)
--- NOTE | 2025-08-10 10:52 | CASEMGMT ---
RN DEON Assessment Face to Face with patient for initial transition planning/care coordination assessment. RN DEON introduced self and role at [facility], pt voices understanding. Pt is A&Ox4 and is resting comfortably in bed and is calm. Care providers, pharmacy, and demographics verified. Admitting dx: Encephalopathy, Fall, UTI LACE Strata: 4 PCP: Daron Benton Specialists: Etelvina (Neuro) Preferred Pharmacy: [facility] Insurance: [employer], RONNY/ [employer] Prescription Benefit: Yes LNOK: Roberto (Son), Augsuto (Son) Living Arrangements: Pt lives alone in a ground level apartment with a flat entrance ADLs/IADLs: Pt reports that she currently requires assistance and that she is active with a INFORMATION TECHNOLOGY ACCOUNT MANAGER. Pt states that the INFORMATION TECHNOLOGY ACCOUNT MANAGER comes q Sunday and Sunday for 4 hours. Pt states that she does not have any other support at home. Pt has a hx of recent falls. Transportation: [facility] Transportation services DME: Home oxygen through [employer] (verified 2L cont via [place]). Pt states that she has a concentrator, portable tanks, pulse ox, nebulizer, and inhaler. Pt states that she uses a rollator at baseline. Pt reports that she has a medical alert system. Pt has a hospital bed as well as a walk-in shower with grab bars and a shower bench. Community Resources: Pt reports that she has a CM through [facility] ([facility]). Per chart review, it is Tena Santoro @ [phone]. TC to the CM at this time, no answer. VM left with update on pt status and tentative DC plan. HHC/SNF: [facility] Pt?s goal: Return to P[facility]F Plan: Anticipate SNF once medically ready. See PT notes. Follow nephro consult. At this time, the pt reports that she prefers to go to a SNF @ the time of DC for rehab. Pt states that she prefers [facility] as she has been there before. Pt is agreeable to reviewing a SNF list in the case [facility] cannot accept. Per the hospitalist, it is anticipated that the pt will be medically ready tomorrow and that if we can get an accepting facility, precert can be initiated. [facility] DPA notified and plans to send referral and generate a list of local in-network SNFs. Pt denies any further questions or concerns at this time. Report given to MARÍA LOYD CM. Ella Bundy RN CM
[2025-08-10] MEDS: APIXABAN 5 MG TABLET PO ×2 (10:53→21:04)
--- NOTE | 2025-08-10 11:11 | CASEMGMT ---
Discharge Planning A list of?SNF providers including quality and resource use data and consistent with the patient's preferred geographic region, medical needs, and insurance network was created in [employer] Guide.? This list was provided to the patient. Dena Torres, Discharge Planning Asst.
--- NOTE | 2025-08-10 11:19 | CASEMGMT ---
Addendum entered by Dena Torres 08/10/25 13:57: [facility] declined d/t no available beds. RN CM and pt updated. Dena Torres DC Planning Asst. Original Note: Discharge Planning Referral sent to [facility]. Dena Torres DC Planning Asst.
--- NOTE | 2025-08-10 13:55 | CASEMGMT ---
EVERT CHAVARRIA updated by YAW regarding patient's preferences for SNF 1. [facility], 2. [facility]. RN CM updated DC Town Manager to send referral. CM will continue to follow this patient and plan for a safe discharge.
--- NOTE | 2025-08-10 13:56 | CASEMGMT ---
Addendum entered by Dena Torres 08/10/25 14:33: [facility] has accepted and will submit for precert. EVERT CM updated. Dena Torres DC Planning Asst. Original Note: Discharge Planning Referral sent to [facility]. Dena Torres DC Planning Asst.
--- NOTE | 2025-08-10 13:58 | CASEMGMT ---
Addendum entered by Ghazala Min 08/10/25 14:47: YAW updated the RN CM with the SNF choices for 129. Original Note: Social Work SW spoke with the patient in her room. Patient chose [facility] and then [facility] for SNF referrals. Patient reported she lives at home alone. SW completed a SDOH with the patient. TATUM Javier
--- NOTE | 2025-08-10 14:09 | CHAPLAIN ---
Type of Pastoral Visit _x__ Initial Visit ___ Follow-up Visit ___ On-call Visit ___ General Patient Visit ___ Spiritual Assessment ___ Family Conference ___ Bereavement ___ Rapid Response ___ Code Blue ___ Other (describe below) Pastoral Care Referral From _x__ Patient ___ Family ___ Nurse ___ Physician ___ Supervisor Backfilling ___ Ems Driver ___ Other (describe below) Sacrament/Intervention _x__ Active listening ___ Anointing ___ Presybeterian ___ Bereavement ___ Communion ___ Kaci exploration ___ ___ Life review _x__ Prayer ___ Reconciliation __x_ Supportive presence ___ Wedding ___ Other (describe below) Pastoral Comments 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
[2025-08-10] MEDS: Polyethylene Glycol 3350 17 GM PACKET PO (21:04)
[2025-08-11] VITALS (8 sets, daily range): BP systolic 127–189; BP diastolic 65–90; PULSE 59–80; RESP 14–16; TEMP 36.1–36.9; O2SAT 94–100; BMI 19.1
[2025-08-11] MEDS: MELATONIN 3 MG TABLET PO (00:03)
[2025-08-11] MEDS: Lactated Ringers 1,000 ML 125 ML IV (05:17)
[2025-08-11 05:30] LABS: Hematocrit 34.4 % (37-47); Hemoglobin 11.0 g/dL (12.0-15.0); Immature Granulocytes Count 0.030 X10^3/uL (0.0-0.0); Mean Corp Hgb Conc 32.0 g/dL (32-36); Mean Corpuscular Volume 87.3 fL (81-99); Mean Platelet Vol. 9.9 fl (6.2-12.0); NRBC Flagged by Analyzer 0 % (0-5); Platelet Count 120 K/mm3 (150-450); RBC Distribution Width CV 17.5 % (11.6-14.6); RBC Distribution Width SD 55.8 fl (35.1-43.9); Red Blood Count 3.94 M/mm3 (4.2-5.4); White Blood Count 6.2 K/mm3 (4.4-11.0)
[2025-08-11 06:35] LABS: AST(SGOT) 20 U/L (<=31); Alanine Aminotransfer ALT/SGPT 16 U/L (<=34); Albumin, Serum 3.9 g/dL (3.4-4.8); Alkaline Phosphatase 95 U/L (35-104); Anion Gap 12 (5-15); BUN 33 mg/dL (4-19); BUN/Creat Ratio 25.1 RATIO (10-20); Calcium,Total 9.7 mg/dL (7.6-11.0); Carbon Dioxide 24.1 mmol/L (21.0-32.0); Chloride 103 mmol/L (98-108); Estimated Creatinine Clearance 32.09 ml/min (50-250); Globulin 2.4 g/dL (2.2-4.2); Glucose 109 mg/dL (70-99); Magnesium 2.1 mg/dL (1.5-2.2); Potassium 4.3 mmol/L (3.3-5.1)
--- NOTE | 2025-08-11 08:29 | CASEMGMT ---
Addendum entered by Dena Torres 08/11/25 10:06: Precert is good until 08/12/25. CM updated. Original Note: [facility] has obtained auth to admit. SW's updated. Dena Torres DC Planning Asst.
--- NOTE | 2025-08-11 08:33 | MRI_ITS ---
PROCEDURE: BRAIN W/WO CONTRAST 08/11/2025 REASON FOR EXAM: MS FLARE? TECHNIQUE: Procedure Code: [id number] Modality: MR Procedure: BRAIN W/WO CONTRAST Multiplanar and multisequence images were obtained. CONTRAST: Clariscan VOLUME: 10 mL COMPARISON: MRI 05/20/2025. FINDINGS: Brain: Encephalomalacia in the right frontal and left parietal lobes. Diffuse hyperintense signal on T2 and FLAIR which are nonspecific and can be combination of chronic small-vessel ischemia and demyelinating disease. Some white matter lesions give the a Campbell's fingers appearance suggestive of multiple sclerosis. Parenchymal volume loss consistent with brain atrophy. No abnormal enhancement. No restricted diffusion. No acute hemorrhage. No mass- effect or midline shift. The orbits are unremarkable. Diffusion: No restricted diffusion. Ventricles: No ventriculomegaly. Major Intracranial Vessels: Patent. Sinuses: Clear. Mastoids: Clear. MRI/Brain W/WO Contrast IMPRESSION: No acute brain abnormalities. No abnormal enhancement. No change compared to MRI 05/20/2025. Chronic changes as detailed. Reading Location: [facility]
--- NOTE | 2025-08-11 10:05 | CASEMGMT ---
EVERT CHAVARRIA received update from [facility] that precert has been obtained. EVERT CHAVARRIA updated hospitalist. Discharge planned for tomorrow. [facility] notified, precert good till 08/12/25. EVERT CHAVARRIA updated patient that [facility] has accepted, precert approved, and discharge planned for tomorrow. Patient voiced appreciation. Patient had no further questions or concerns.
[2025-08-11] MEDS: APIXABAN 5 MG TABLET PO ×2 (10:41→21:47)
--- NOTE | 2025-08-11 18:13 | PCM.PN.HOSP ---
Reason for Visit Chief Complaint: Fall, confusion. Subjective Subjective No issues overnight. Patient states her MRI was performed early this morning. At this time my evaluation we are awaiting results. Asks for some muscle relaxant for her chronic back pain. She does follow as an outpatient with pain management. She does have multiple drug allergies with some limits oral medications. I did discuss with her it did not really want to increase her opiate use. Objective Data Objective Data Vital Signs: Vital Signs Temp Pulse Resp BP Pulse Ox O2 Del Method O2 Flow Rate 97 F L 69 14 127/65 H 100 Room Air 2 08/11/25 14:01 08/11/25 14:01 08/11/25 14:01 08/11/25 14:01 08/11/25 14:01 08/11/25 14:01 08/11/25 09:27 Oxygen Flow Rate (L/min) 2 Oxygen Delivery Method Room Air Weight: 52 kg Body Mass Index (BMI) 19.1 Intake & Output: Intake and Output for Last 24 Hours 08/09/25 08/10/25 08/11/25 23:59 23:59 23:59 Intake Total 1675 / 2035 2260 / 2260 2425 / 2425 Output Total 2000 / 2400 1750 / 2400 1400 / 1400 Balance -325 / -365 510 / -140 1025 / 1025 Medical Nutrition Assessment Dietitian: Malnutrition Criteria Met Start: 08/09/25 13:03 Freq: Status: Active Protocol: Document 08/09/25 13:04 RMA (Rec: 08/09/25 13:04 RMA [id number]) Nutrition Malnutrition Evidence of Yes Malnutrition Exists Malnutrition ( Chronic moderate): Evidenced By Suboptimal Energy Intake (Moderate),Weight Loss ( Moderate),Physical Changes (Moderate) Clinical Problem Chronic Disease or Condition Related Malnutrition Etiology moderate protein-calorie malnutrition in the context of chronic disease and debility related to inadequate oral/energy intake Signs/Symptoms as evidenced by BMI 17.5, ~ 4-5% unintentional weight loss x past 2-3 months, moderate muscle wasting and fat depletion in the clavicle, face, arms and legs as well as PO meeting less than 75% estimated nutrition needs Status Active Problem Recommendation Dietitian Will liberalize diet to regular/no added salt. Recommendations/ Will continue 120mL ensure plus HP 3 times per day w/ Changes medpass. Will add additional ONS as needed if weight/oral intake decline. Lab / Micro Data 08/11/25 04:51 08/11/25 04:51 Labs: Laboratory Results - last 24 hr 08/11/25 04:51: WBC 6.2, RBC 3.94 L, Hgb 11.0 L, Hct 34.4 L, MCV 87.3, MCH 27.9, MCHC 32.0, RDW Std Deviation 55.8 H, RDW Coeff of David 17.5 H, Plt Count 120 L, MPV 9.9, Immature Gran % (Auto) 0.500, Neut % (Auto) 72.7 H, Lymph % (Auto) 11.9 L, [place] % (Auto) 9.5, Eos % (Auto) 4.8, Baso % (Auto) 0.6, Absolute Neuts (auto) 4.5, Absolute Lymphs (auto) 0.74 L, Nucleated RBC % 0, Sodium 139, Potassium 4.3, Chloride 103, Carbon Dioxide 24.1, Anion Gap 12, BUN 33 H, Creatinine 1.32 H, Estim Creat Clear Calc 32.09 L, Est GFR (MDRD) Non-Af 43 L, BUN/Creatinine Ratio 25.1 H, Glucose 109 H, Calcium 9.7, Phosphorus 3.6, Magnesium 2.1, Total Bilirubin 0.41, AST 20, ALT 16, Alkaline Phosphatase 95, Total Protein 6.3, Albumin 3.9, Globulin 2.4, Albumin/Globulin Ratio 1.6 Micro: Microbiology 08/08/25 23:00 Urine, Catheterized Urine Culture - Final Culture exhibits no growth. Radiography Diagnostic Testing: Radiology Impression Brain MRI 08/11/25 08:33 IMPRESSION: No acute brain abnormalities. No abnormal enhancement. No change compared to MRI 05/20/2025. Chronic changes as detailed. Reading Location: [facility] Physical Exam Const alert, oriented x3, no apparent distress, average body habitus and well nourished Constitutional Narrative: Older, white female, sitting up in bed, appears somewhat chronically debilitated but currently comfortable, does not look toxic, nursing at bedside General Appearance: cooperative HEENT normocephalic, moist oral mucous membranes and oropharynx normal HEENT Narrative: Bilateral periorbital ecchymosis and edema right greater than left, does have dried blood in her scalp Eyes EOMs intact bilaterally and conjunctivae normal Eyes Narrative: No scleral icterus Neck supple Neck Narrative: Trachea midline Resp normal respiratory effort, normal air movement, no retractions, no use of accessory muscles and clear to auscultation bilaterally Auscultation: Negative for rales, rhonchi or wheezes Cardio regular rate, regular rhythm, S1 normal heart sound, S2 normal heart sound, no murmurs, no rub, no gallops and no clicks GI normal to inspection, nondistended, normoactive bowel sounds, soft to palpation and non-tender Extremity no clubbing, cyanosis or edema Extremity Narrative: 2+ pedal pulses, 2+ radial pulses Neuro moves all extremities and no focal motor deficits Neuro Narrative: Patient with generalized weakness however difficult to tell what is acute or chronic. Speech: speech normal Motor Exam: general weakness Psych affect normal Psych Narrative: Extremely pleasant, eye contact is good and patient interacts appropriately Assessment & Plan Assessment/Plan (1) CHRISTOPHER (acute kidney injury): (2) Head injury: (3) Dehydration: (4) Nausea and vomiting: (5) Fall: (6) Closed head injury: PLAN: Plan Closed head injury/scalp contusion - Patient with significant Lira sign - CT of the brain x 2 unremarkable - CT of the face and sinuses unremarkable - CT cervical spine unremarkable - Per discussion with patient her neurologist, Dr. Main is concerned that this may be related to an acute exacerbation of her MS - MRI with and without contrast the brain obtained and no acute findings consistent with MS CHRISTOPHER on CKD stage II secondary to dehydration - Improving - Baseline renal function appears to be between 1 and 1.2 - FeNa was obtained and was found to be 0.66 consistent with prerenal etiology - 1 more liter today as renal function is improved with serum creatinine of 1.32 - Renal ultrasound unremarkable Fall - As noted above neurology feels it is likely related to an exacerbation of MS - MRI with and without contrast of the brain was unremarkable for any acute findings consistent with an exacerbation of MS - PT/OT placement - Plan is for discharge likely tomorrow to halfway facility Constipation - CT of the abdomen pelvis showed large fecal load in the colon -Patient did have bowel movement today - Continue home Colace twice daily - Add MiraLAX 17 g twice daily for now with holding for liquid stool - Continue to monitor stool output Nausea and vomiting - Resolved - The patient attributes mostly to nasal drainage/postnasal drip - For now we will start Mucinex 1200 p.o. twice daily - may also be related to significant constipation see still regimen as above Toxic/metabolic encephalopathy - Suspect related to closed head injury - Patient may have some mild postconcussive symptoms - TSH within normal limits - Clinically improved COPD with chronic hypoxic respiratory failure second alpha-1 antitrypsin deficiency - Patient wears 2.5 L at night and 3 L as needed during the day - Continue home budesonide - As needed albuterol - I-S Valvular heart disease - Patient with moderate mitral valve stenosis - Murmur noted on exam - EF of 65% with negative bubble study - Continue outpatient follow-up CAD/PAD/essential hypertension/hyperlipidemia/bilateral carotid artery stenosis/TIA - Patient with previous PCI for coronary arteries as well as peripheral iliac artery - History of carotid endarterectomy - Continue baby aspirin - Continue apixaban - Continue Coreg - Increase amlodipine to 10 mg daily - Continue statin PAF - Currently in sinus rhythm - Continue beta-blockade - Continue apixaban Psoriatic arthritis - Patient not on any suppressive therapy - No signs of acute rash - Monitor MS - Follows with neurology - MRI is unremarkable for any acute findings - Recommend outpatient follow-up with primary neurologist Chronic normocytic anemia - Hemoglobin stable Chronic thrombocytopenia -Improved today - repeat lab in a.m. - Coags are normal so little DIC is improbable - May need outpatient follow-up at oncology if persistent Hypothyroidism - Continue home levothyroxine - History of partial thyroidectomy Allergic rhinitis - Suspect contributing to her postnasal drip - Continue home nasal spray - Mucinex as noted above GERD - Continue home PPI History of brain aneurysm - Previous coiling - No acute problems Tobacco abuse - Patient continues to smoke - Nicotine replacement available if needed - Encourage cessation DVT prophylaxis - Continue Eliquis CODE STATUS - Full code Charges/Coding Visit Charges Inpatient E&M: 96269 Subs Hosp L2
[2025-08-12] VITALS (11 sets, daily range): BP systolic 132–181; BP diastolic 81–90; PULSE 67–90; RESP 16–17; TEMP 36.4–36.7; O2SAT 98–100; BMI 18.3
--- NOTE | 2025-08-12 04:45 | EKG12_ITS ---
Test Reason : CHEST PAIN Blood Pressure : */* mmHG Vent. Rate : 84 BPM Atrial Rate : 84 BPM P-R Int : 160 ms QRS Dur : 80 ms QT Int : 408 ms P-R-T Axes : 69 37 51 degrees QTcB Int : 482 ms Sinus rhythm with Premature atrial complexes Possible Left atrial enlargement Cannot rule out Anterior infarct , age undetermined Abnormal ECG When compared with ECG of 05-Aug-2025 20:59, Premature atrial complexes are now Present Vent. rate has increased by 29 bpm Confirmed by Roberto Smiley ([id number]), sound editor SELAM BARRETO ([id number]) on 08/13/2025 6:01:49 AM Referred By: Confirmed By: Roberto Smiley
[2025-08-12 06:12] LABS: Troponin T High Sensitivity 23 ng/L (<=14)
[2025-08-12 08:14] LABS: Troponin T High Sens 2 HR 20 ng/L (<=14)
[2025-08-12 08:48] LABS: Anion Gap 12 (5-15); BUN 23 mg/dL (4-19); BUN/Creat Ratio 21.3 RATIO (10-20); Calcium,Total 9.6 mg/dL (7.6-11.0); Carbon Dioxide 21.1 mmol/L (21.0-32.0); Chloride 104 mmol/L (98-108); Estimated Creatinine Clearance 38.42 ml/min (50-250); Glucose 107 mg/dL (70-99); Potassium 4.3 mmol/L (3.3-5.1)
[2025-08-12] MEDS: APIXABAN 5 MG TABLET PO ×2 (09:34→22:14)
[2025-08-12] MEDS: Glycerin/Hypromellose/PEG400 15 ml Bottle 1 DRP EACH EYE ×3 (09:36→16:16)
[2025-08-12 10:07] LABS: Troponin T High Sens 4 HR 20 ng/L (<=14)
--- NOTE | 2025-08-12 13:43 | DS.PCM_ITS ---
Providers Date of Admission: 08/08/25 Primary Care Physician: Dr. Daron Benton MD Reason For Visit: ENCEPHALOPATHY, FALL, CHRISTOPHER Diagnosis Discharge Diagnosis (1) CHRISTOPHER (acute kidney injury): Status: Acute Code(s): N17.9 - Acute kidney failure, unspecified (2) Head injury: Status: Acute Code(s): S09.90XA - Unspecified injury of head, initial encounter (3) Dehydration: Status: Acute Code(s): E86.0 - Dehydration (4) Nausea and vomiting: Status: Acute Code(s): R11.2 - Nausea with vomiting, unspecified (5) Fall: Status: Acute Code(s): W19.XXXA - Unspecified fall, initial encounter (6) Closed head injury: Status: Acute Code(s): S09.90XA - Unspecified injury of head, initial encounter Plan Closed head injury/scalp contusion - Patient with significant Lira sign - CT of the brain x 2 unremarkable - CT of the face and sinuses unremarkable - CT cervical spine unremarkable - Per discussion with patient her neurologist, Dr. Main is concerned that this may be related to an acute exacerbation of her MS - MRI with and without contrast the brain obtained and no acute findings consistent with MS CHRISTOPHER on CKD stage II secondary to dehydration - Improving - Baseline renal function appears to be between 1 and 1.2 - FeNa was obtained and was found to be 0.66 consistent with prerenal etiology - 1 more liter today as renal function is improved with serum creatinine of 1.32 - Renal ultrasound unremarkable Fall - As noted above neurology feels it is likely related to an exacerbation of MS - MRI with and without contrast of the brain was unremarkable for any acute findings consistent with an exacerbation of MS - PT/OT placement - Plan is for discharge likely tomorrow to assisted facility Constipation - CT of the abdomen pelvis showed large fecal load in the colon -Patient did have bowel movement today - Continue home Colace twice daily - Add MiraLAX 17 g twice daily for now with holding for liquid stool - Continue to monitor stool output Nausea and vomiting - Resolved - The patient attributes mostly to nasal drainage/postnasal drip - For now we will start Mucinex 1200 p.o. twice daily - may also be related to significant constipation see still regimen as above Toxic/metabolic encephalopathy - Suspect related to closed head injury - Patient may have some mild postconcussive symptoms - TSH within normal limits - Clinically improved COPD with chronic hypoxic respiratory failure second alpha-1 antitrypsin deficiency - Patient wears 2.5 L at night and 3 L as needed during the day - Continue home budesonide - As needed albuterol - I-S Valvular heart disease - Patient with moderate mitral valve stenosis - Murmur noted on exam - EF of 65% with negative bubble study - Continue outpatient follow-up CAD/PAD/essential hypertension/hyperlipidemia/bilateral carotid artery stenosis/TIA - Patient with previous PCI for coronary arteries as well as peripheral iliac artery - History of carotid endarterectomy - Continue baby aspirin - Continue apixaban - Continue Coreg - Increase amlodipine to 10 mg daily - Continue statin PAF - Currently in sinus rhythm - Continue beta-blockade - Continue apixaban Psoriatic arthritis - Patient not on any suppressive therapy - No signs of acute rash - Monitor MS - Follows with neurology - MRI is unremarkable for any acute findings - Recommend outpatient follow-up with primary neurologist Chronic normocytic anemia - Hemoglobin stable Chronic thrombocytopenia -Improved today - repeat lab in a.m. - Coags are normal so little DIC is improbable - May need outpatient follow-up at oncology if persistent Hypothyroidism - Continue home levothyroxine - History of partial thyroidectomy Allergic rhinitis - Suspect contributing to her postnasal drip - Continue home nasal spray - Mucinex as noted above GERD - Continue home PPI History of brain aneurysm - Previous coiling - No acute problems Tobacco abuse - Patient continues to smoke - Nicotine replacement available if needed - Encourage cessation DVT prophylaxis - Continue Eliquis CODE STATUS - Full code Medications at Discharge Home Medications levothyroxine 50 mcg tablet 50 mcg PO DAILY thyroid 08/11/21 dextromethorphan-guaifenesin ER 60 mg-1,200 mg tab,extend release,12hr (Mucinex DM) 1 tab PO Q12H PRN cough/congest 02/19/24 famotidine 40 mg tablet 40 mg PO QDAY PRN indigestion 11/24/24 cholecalciferol (vitamin D3) 125 mcg (5,000 unit) capsule 125 mcg PO DAILY supplement 04/18/25 docusate sodium 100 mg capsule (Colace) 100 mg PO BID stool softener 7 days #14 caps 04/18/25 polysaccharide iron complex 150 mg iron capsule (Ferrex) 150 mg PO DAILY 90 days #90 caps 04/22/25 capsaicin 0.1 % topical cream 1 applic topical TID #60 grams 05/19/25 food supplemt, lactose-reduced 0.08 gram-1.5 kcal/mL oral liquid (Ensure Plus High Protein) 120 ml PO TIDCM #21,330 mL 06/07/25 baclofen 10 mg tablet 10 mg PO TID #0 tabs 06/09/25 gabapentin 300 mg capsule 300 mg PO TID #0 caps 06/09/25 pantoprazole 40 mg tablet,delayed release (Protonix) 40 mg PO BIDCM #1 TAB 06/09/25 paroxetine HCl 10 mg tablet 10 mg PO DAILY #0 tabs 06/09/25 potassium chloride 20 mEq tablet,extended release(part/cryst) 20 meq PO BIDCM #0 tabs 06/09/25 quetiapine 25 mg tablet 50 mg (2 x 25 mg) PO QHS #0 tabs 06/09/25 carvedilol 3.125 mg tablet 3.125 mg PO BIDCM heart #180 tabs 07/22/25 apixaban 5 mg tablet (Eliquis) 5 mg PO Q12H anticoagulation #180 tabs 08/03/25 rosuvastatin 20 mg tablet 20 mg PO QHS hld #90 tabs 08/05/25 furosemide 40 mg tablet 40 mg PO QDAY diuretic 08/06/25 OXYGEN - Supplemental ([facility] INFORMATIONAL USE ONLY) hypoxia 08/10/25 amlodipine 10 mg tablet 10 mg PO DAILY #0 tabs 08/12/25 cyclobenzaprine 5 mg tablet 5 mg PO TID PRN Muscle Spasm #0 tabs 08/12/25 guaifenesin 1,200 mg tablet, extended release 12 hr (Mucus Relief ER) 1,200 mg PO BID #0 tabs 08/12/25 oxycodone 5 mg tablet 10 mg (2 x 5 mg) PO Q6H PRN PRN Pain Score 4-10 1 day #8 tabs 08/12/25 psyllium husk 3 gram oral powder packet (Daily Fiber (psyllium-aspartame)) 1 packet PO DAILY PRN PRN Constipation #0 ea 08/12/25 Hospital Course Procedures EKG and - (CT of the brain x 2/cervical spine CT/chest x-ray/facial and sinus x- ray/pelvic x-ray/shoulder x-ray/CT of the abdomen pelvis/renal ultrasound/brain MRI) Summary of Care Provided Minutes Spent on Discharge: 40 Hospital Course: Mrs. Yo is a 70-year-old white female who presented to the emergency department at [facility] on 08/08/2025 after a fall and subsequent confusion at home. She has a history of multiple sclerosis at baseline and is otherwise quite medically complex. Fall was mechanical and she suffered head injury. Dried blood was noted on her scalp and she was confused occasionally and repeating herself. Vital signs on presentation showed temperature of 98.4, heart rate 66, blood pressure was 176/100, respiratory was 18 and pulse ox was 99% on room air. CBC showed mild chronic anemia and thrombocytopenia with platelet count of 122,000. Basic metabolic profile showed normal bicarb but she had a markedly elevated BUN at 80 and a serum creatinine of 3.9. Previous renal function was assessed here early in July and appeared to range between 1 and 1.2. During her stay she did have some chest pain and had a troponin of 23 with a delta of 20 and a 4-hour troponin of 20. EKG was unremarkable. Pain resolved with pain medication. On exam she was noted to have marked bilateral periorbital ecchymosis and edema. She appeared to be markedly dehydrated. Liver functions were unremarkable. Given her altered mentation and elevated serum creatinine she was admitted to the PCU. Electrolytes, despite her renal dysfunction were overwhelmingly unremarkable for the most part. Fractional excretion of sodium was calculated and found to be consistent with prerenal azotemia. She was aggressively rehydrated which resulted in resolution of her renal failure. Serum creatinine at the time of discharge was 1.06. Per discussion with the patient her primary neurologist, Dr. Main, was concerned that her weakness and fall could possibly be related to a flare of her MS and once her serum creatinine was closer to normal we did obtain a contrasted MRI of her brain which was unremarkable for any acute findings. On top of this, extensive imaging was done prior to admission with no acute fractures identified. CT of the abdomen pelvis did show significant constipation and she was treated with an aggressive bowel regimen during her hospital course. Renal ultrasound was also performed given her significant CHRISTOPHER presentation and was unremarkable. Patient was seen by physical and Occupational Therapy during her hospital course and they strongly felt that she would benefit from ongoing rehab at discharge. Patient requested [facility] at discharge and she was accepted. Pre-CERT was obtained from her insurance company on 08/11/2025 and she was deemed appropriate for discharge on 08/12/2025. No medication changes were made at the time of discharge other than the addition of as needed Flexeril to assist with her chronic back pain. Patient was discharged to [facility] in stable condition on 08/12/2025. Discharge diagnoses: Closed head injury/scalp contusion/postconcussive disorder CHRISTOPHER secondary with prerenal azotemia secondary to dehydration CKD stage II Chronic moderate malnutrition Generalized weakness/fall Constipation Nausea Vomiting Toxic/metabolic encephalopathy-resolved COPD Chronic hypoxic respiratory failure secondary to alpha-1 antitrypsin deficiency Valvular heart disease CAD PAD Essential hypertension Hyperlipidemia Bilateral carotid artery stenosis TIA PAF Psoriatic arthritis MS Chronic normocytic anemia Thrombocytopenia-resolving Hypothyroidism Allergic rhinitis GERD History of brain aneurysm Tobacco abuse Physical Exam Const alert, oriented x3, no apparent distress, average body habitus, no limitations and well nourished; Negative for healthy appearing Constitutional Narrative: Chronically ill-appearing, older, white female, sitting up in bed eating breakfast and watching television, appears comfortable, nontoxic General Appearance: cooperative, comfortable, well kempt and well developed Exam Limitations: no limitations Nutritional Appearance: underweight HEENT normocephalic and moist oral mucous membranes; Negative for head/scalp atraumatic or hearing grossly normal bilaterally HEENT Narrative: Mild hearing loss, Mallampati 2, no thrush, significant periorbital ecchymosis with edema right greater than left Eyes EOMs intact bilaterally and conjunctivae normal Eyes Narrative: No scleral icterus Neck supple Neck Narrative: Trachea midline Resp normal respiratory effort, normal air movement, no retractions, no use of accessory muscles and clear to auscultation bilaterally Resp Narrative: Diminished but clear Auscultation: Negative for rales, rhonchi or wheezes Cardio regular rate, regular rhythm, S1 normal heart sound, S2 normal heart sound, no murmurs, no rub, no gallops and no clicks GI normal to inspection, nondistended, normoactive bowel sounds, soft to palpation and non-tender Extremity no clubbing, cyanosis or edema Extremity Narrative: 2+ pedal pulses, 2+ radial pulses Skin no jaundice, no petechiae and no mottling Skin Narrative: Ecchymosis as noted above General Skin Exam: no breakdown Neuro moves all extremities and no focal motor deficits Neuro Narrative: Generalized weakness Speech: speech normal Psych affect normal Psych Narrative: Extremely pleasant, eye contact is good and patient interacts appropriately Medical Records Data Medical Nutrition Assessment Dietitian: Malnutrition Criteria Met Start: 08/09/25 13:03 Freq: Status: Active Protocol: Document 08/09/25 13:04 RMA (Rec: 08/09/25 13:04 RMA [id number]) Nutrition Malnutrition Evidence of Yes Malnutrition Exists Malnutrition ( Chronic moderate): Evidenced By Suboptimal Energy Intake (Moderate),Weight Loss ( Moderate),Physical Changes (Moderate) Clinical Problem Chronic Disease or Condition Related Malnutrition Etiology moderate protein-calorie malnutrition in the context of chronic disease and debility related to inadequate oral/energy intake Signs/Symptoms as evidenced by BMI 17.5, ~ 4-5% unintentional weight loss x past 2-3 months, moderate muscle wasting and fat depletion in the clavicle, face, arms and legs as well as PO meeting less than 75% estimated nutrition needs Status Active Problem Recommendation Dietitian Will liberalize diet to regular/no added salt. Recommendations/ Will continue 120mL ensure plus HP 3 times per day w/ Changes medpass. Will add additional ONS as needed if weight/oral intake decline. Weight / BMI Weight Weight: 50 kg Body Mass Index (BMI) 18.3 ABG / Lab / Microbiology Data 08/11/25 04:51 08/12/25 07:28 Laboratory: Laboratory Results - last 24 hr 08/12/25 05:26: Troponin T High Sens 23 H D 08/12/25 07:28: Sodium 137, Potassium 4.3, Chloride 104, Carbon Dioxide 21.1, Anion Gap 12, BUN 23 H, Creatinine 1.06, Estim Creat Clear Calc 38.42 L, Est GFR (MDRD) Non-Af 56 L, BUN/Creatinine Ratio 21.3 H, Glucose 107 H, Calcium 9.6, T roponin T Hi Sens 2 Hr 20 H 08/12/25 09:28: Troponin T Hi Sens 4Hr 20 H Microbiology: Microbiology 08/08/25 23:00 Urine, Catheterized Urine Culture - Final Culture exhibits no growth. D/C Instructions Discharge Activity: Return to Normal Activity DC O2, CPAP, BIPAP Needs Home O2 Discharge instructions: No Meaningful Use Info Meaningful Use Meaningful Use Diagnoses (Choose all that apply): None applicable Discharge Plan Admission Admit Date/Time: 08/08/25 23:34 Primary Reason for Your Visit: Fall/confusion Attending Provider: Eva Mortensen Primary Care Provider: Daron Benotn Consulting Providers: Sommer Resendiz; Neha Watson Discharge Orders/Prescriptions Prescriptions: New amlodipine 10 mg Tablet 10 mg PO DAILY Qty: 0 0RF cyclobenzaprine 5 mg Tablet 5 mg PO TID PRN (Reason: Muscle Spasm) Qty: 0 0RF guaifenesin [Mucus Relief ER] 1,200 mg Tablet Extended Release 12hr 1,200 mg PO BID Qty: 0 0RF Daily Fiber (psyllium-aspart) 3 gram Powder In Packet 1 packet PO DAILY PRN PRN (Reason: Constipation) Qty: 0 0RF Continued levothyroxine 50 mcg tablet 50 mcg PO DAILY Patient Comments: take 1 tablet by mouth once daily famotidine 40 mg tablet 40 mg PO QDAY PRN (Reason: indigestion) rosuvastatin 20 mg tablet 20 mg PO QHS Qty: 90 3RF dextromethorphan-guaifenesin [Mucinex DM] 60-1,200 mg tablet extended release 12 hr 1 tab PO Q12H PRN (Reason: cough/congest) cholecalciferol (vitamin D3) 125 mcg (5,000 unit) capsule 125 mcg PO DAILY polysaccharide iron complex [Ferrex 150] 150 mg iron Capsule 150 mg PO DAILY 90 Days Qty: 90 0RF capsaicin 0.1 % cream 1 applic topical TID Qty: 60 0RF Rx Instructions: do not wash area for at least 30 min after application docusate sodium [Colace] 100 mg capsule 100 mg PO BID 7 Days Qty: 14 0RF Ensure Plus High Protein 0.08 gram-1.5 kcal/mL Liquid 120 ml PO TIDCM Qty: 76053 0RF baclofen 10 mg Tablet 10 mg PO TID Qty: 0 0RF quetiapine 25 mg Tablet 50 mg PO QHS Qty: 0 0RF paroxetine HCl 10 mg Tablet 10 mg PO DAILY Qty: 0 0RF potassium chloride 20 mEq Tablet,Er Particles/Crystals 20 meq PO BIDCM Qty: 0 0RF gabapentin 300 mg Capsule 300 mg PO TID Qty: 0 0RF pantoprazole [Protonix] 40 mg tablet,delayed release (DR/EC) 40 mg PO BIDCM Qty: 1 0RF OXYGEN - Supplemental ([facility] INFORMATIONAL USE ONLY) Patient Comments: 3L oxycodone 5 mg Tablet 10 mg PO Q6H PRN PRN (Reason: Pain Score 4-10) 1 Days Qty: 8 0RF carvedilol 3.125 mg tablet 3.125 mg PO BIDCM Qty: 180 3RF Eliquis 5 mg tablet 5 mg PO Q12H Qty: 180 3RF furosemide 40 mg tablet 40 mg PO QDAY Discontinued amlodipine 2.5 mg tablet 2.5 mg PO QDAY Referrals / Follow Up: Daron Benton MD [Primary Care Provider, Family Practice] Kristopher Main MD [Non-Staff, Neurology] - Within 1 Month Disposition Disposition (needs filled in before D/C Order can be placed): Nursing Home Facility Charges/Coding Visit Charges Inpatient E&M: 08940 SNF Disch >30 Min
--- NOTE | 2025-08-12 14:31 | PHA.DC_ITS ---
Pharmacy ID Med Reconciliation Pharmacy Service has performed discharge medication reconciliation for this patient. The patient's discharge medication list was reviewed for discrepancies and discrepancies were resolved. Medications at Discharge Home Medications levothyroxine 50 mcg tablet 50 mcg PO DAILY thyroid 08/11/21 dextromethorphan-guaifenesin ER 60 mg-1,200 mg tab,extend release,12hr (Mucinex DM) 1 tab PO Q12H PRN cough/congest 02/19/24 famotidine 40 mg tablet 40 mg PO QDAY PRN indigestion 11/24/24 cholecalciferol (vitamin D3) 125 mcg (5,000 unit) capsule 125 mcg PO DAILY supplement 04/18/25 docusate sodium 100 mg capsule (Colace) 100 mg PO BID stool softener 7 days #14 caps 04/18/25 polysaccharide iron complex 150 mg iron capsule (Ferrex) 150 mg PO DAILY 90 days #90 caps 04/22/25 capsaicin 0.1 % topical cream 1 applic topical TID #60 grams 05/19/25 food supplemt, lactose-reduced 0.08 gram-1.5 kcal/mL oral liquid (Ensure Plus High Protein) 120 ml PO TIDCM #21,330 mL 06/07/25 baclofen 10 mg tablet 10 mg PO TID #0 tabs 06/09/25 gabapentin 300 mg capsule 300 mg PO TID #0 caps 06/09/25 pantoprazole 40 mg tablet,delayed release (Protonix) 40 mg PO BIDCM #1 TAB 06/09/25 paroxetine HCl 10 mg tablet 10 mg PO DAILY #0 tabs 06/09/25 potassium chloride 20 mEq tablet,extended release(part/cryst) 20 meq PO BIDCM #0 tabs 06/09/25 quetiapine 25 mg tablet 50 mg (2 x 25 mg) PO QHS #0 tabs 06/09/25 carvedilol 3.125 mg tablet 3.125 mg PO BIDCM heart #180 tabs 07/22/25 apixaban 5 mg tablet (Eliquis) 5 mg PO Q12H anticoagulation #180 tabs 08/03/25 rosuvastatin 20 mg tablet 20 mg PO QHS hld #90 tabs 08/05/25 furosemide 40 mg tablet 40 mg PO QDAY diuretic 08/06/25 OXYGEN - Supplemental ([facility] INFORMATIONAL USE ONLY) hypoxia 08/10/25 amlodipine 10 mg tablet 10 mg PO DAILY #0 tabs 08/12/25 cyclobenzaprine 5 mg tablet 5 mg PO TID PRN Muscle Spasm #0 tabs 08/12/25 guaifenesin 1,200 mg tablet, extended release 12 hr (Mucus Relief ER) 1,200 mg PO BID #0 tabs 08/12/25 oxycodone 5 mg tablet 10 mg (2 x 5 mg) PO Q6H PRN PRN Pain Score 4-10 1 day #8 tabs 08/12/25 psyllium husk 3 gram oral powder packet (Daily Fiber (psyllium-aspartame)) 1 packet PO DAILY PRN PRN Constipation #0 ea 08/12/25
--- NOTE | 2025-08-12 15:15 | TREXTCAR_ITS ---
Diet Diet Order/Speech Therapy: INPATIENT Hospital Diet / Speech Therapy Order(s) 08/09/25 13:04 Diet: Regular - No Added Salt Food consistency:: Regular Liquid Consistency:: Regular/Thin Type of Dietary Supplement:: Magic Cup Dessert Diet Comments: magic cup with lunch and dinner tray Routine Orders/Code Status Suppository Type: Dulcolax 10mg Routine Lab Work: CBC (1 week) and BMP (1 week) Code Status: Full Code DC O2, CPAP, BIPAP needs Home O2 Discharge instructions: No Wound(s) Top of Head: Wound Type: Laceration Forehead: Wound Type: Hematoma corner of right eye: Wound Type: Laceration Suggestions for Active Care Change Position every (hours): 2 Hours to sit in a chair: 3 Times a day to sit in chair: 2 Therapies Weight Bearing: Full weight bearing Physical Therapy: Eval and Treat Occupational Therapy: Eval and Treat Problem/Diagnosis (1) HCRISTOPHER (acute kidney injury): Status: Acute Code(s): N17.9 - Acute kidney failure, unspecified (2) Head injury: Status: Acute Code(s): S09.90XA - Unspecified injury of head, initial encounter (3) Dehydration: Status: Acute Code(s): E86.0 - Dehydration (4) Nausea and vomiting: Status: Acute Code(s): R11.2 - Nausea with vomiting, unspecified (5) Fall: Status: Acute Code(s): W19.XXXA - Unspecified fall, initial encounter (6) Closed head injury: Status: Acute Code(s): S09.90XA - Unspecified injury of head, initial encounter Allergies/Procedures Done in Hospital Allergies colestipol (From Colestid) Allergy (Mild, Verified 08/08/25 21:58) unknown pregabalin (From Lyrica) Allergy (Mild, Verified 08/08/25 21:58) Hives amitriptyline Allergy (Verified 08/08/25 21:58) Rash temazepam (From Restoril) Adverse Reaction (Mild, Verified 08/08/25 21:58) Nausea/Vom/Diarrhea Antihistamines - Alkylamine Adverse Reaction (Verified 08/08/25 21:58) Nausea/Vom/Diarrhea Antihistamines - Ethanolamine Adverse Reaction (Verified 08/08/25 21:58) Nausea/Vom/Diarrhea Antihistamines - Ethylenediamine Adverse Reaction (Verified 08/08/25 21:58) Nausea/Vom/Diarrhea Antihistamines - Piperazine Adverse Reaction (Verified 08/08/25 21:58) Nausea/Vom/Diarrhea Antihistamines - Piperidine Adverse Reaction (Verified 08/08/25 21:58) Nausea/Vom/Diarrhea aspirin Adverse Reaction (Verified 08/08/25 21:58) I'M ON BLOOD THINNERS codeine Adverse Reaction (Verified 08/08/25 21:58) Nausea Corticosteroids (Glucocorticoids) Adverse Reaction (Verified 08/08/25 21:58) Upset Stomach morphine Adverse Reaction (Verified 08/08/25 21:58) Nausea [id number] Reductase Inhibitor (Rblcpda-Bad-Ank Reductase Inhibitor) Adverse Reaction (Verified 08/08/25 21:58) Nausea Procedures: EKG and - (Chest x-ray) Type of Care/Length of Stay Estimated LOS: Convalescent Care Less Than 30 days Type of Care Needed: Skilled Rehab Potential: Good Prognosis: Fair Additional Orders/Day of Discharge Day of Discharge: 08/12/25 Dietary and Speech Recommendations Dietitian Recommendations/Changes: Will liberalize diet to regular/no added salt. Will d/c 120mL ensure plus HP 3 times per day w/ medpass; pt refusing. Will try magic cup w/ lunch and dinner for tolerance. Discharge Plan Admission Admit Date/Time: 08/08/25 23:34 Primary Reason for Your Visit: Fall/confusion Attending Provider: Eva Mortensen Primary Care Provider: Daron Benton Consulting Providers: Sommer Resendiz; Neha Watson Discharge Orders/Prescriptions Prescriptions: New amlodipine 10 mg Tablet 10 mg PO DAILY Qty: 0 0RF cyclobenzaprine 5 mg Tablet 5 mg PO TID PRN (Reason: Muscle Spasm) Qty: 0 0RF guaifenesin [Mucus Relief ER] 1,200 mg Tablet Extended Release 12hr 1,200 mg PO BID Qty: 0 0RF Daily Fiber (psyllium-aspart) 3 gram Powder In Packet 1 packet PO DAILY PRN PRN (Reason: Constipation) Qty: 0 0RF Continued levothyroxine 50 mcg tablet 50 mcg PO DAILY Patient Comments: take 1 tablet by mouth once daily famotidine 40 mg tablet 40 mg PO QDAY PRN (Reason: indigestion) rosuvastatin 20 mg tablet 20 mg PO QHS Qty: 90 3RF dextromethorphan-guaifenesin [Mucinex DM] 60-1,200 mg tablet extended release 12 hr 1 tab PO Q12H PRN (Reason: cough/congest) cholecalciferol (vitamin D3) 125 mcg (5,000 unit) capsule 125 mcg PO DAILY polysaccharide iron complex [Ferrex 150] 150 mg iron Capsule 150 mg PO DAILY 90 Days Qty: 90 0RF capsaicin 0.1 % cream 1 applic topical TID Qty: 60 0RF Rx Instructions: do not wash area for at least 30 min after application docusate sodium [Colace] 100 mg capsule 100 mg PO BID 7 Days Qty: 14 0RF Ensure Plus High Protein 0.08 gram-1.5 kcal/mL Liquid 120 ml PO TIDCM Qty: 59157 0RF baclofen 10 mg Tablet 10 mg PO TID Qty: 0 0RF quetiapine 25 mg Tablet 50 mg PO QHS Qty: 0 0RF paroxetine HCl 10 mg Tablet 10 mg PO DAILY Qty: 0 0RF potassium chloride 20 mEq Tablet,Er Particles/Crystals 20 meq PO BIDCM Qty: 0 0RF gabapentin 300 mg Capsule 300 mg PO TID Qty: 0 0RF pantoprazole [Protonix] 40 mg tablet,delayed release (DR/EC) 40 mg PO BIDCM Qty: 1 0RF OXYGEN - Supplemental ([facility] INFORMATIONAL USE ONLY) Patient Comments: 3L oxycodone 5 mg Tablet 10 mg PO Q6H PRN PRN (Reason: Pain Score 4-10) 1 Days Qty: 8 0RF carvedilol 3.125 mg tablet 3.125 mg PO BIDCM Qty: 180 3RF Eliquis 5 mg tablet 5 mg PO Q12H Qty: 180 3RF furosemide 40 mg tablet 40 mg PO QDAY Discontinued amlodipine 2.5 mg tablet 2.5 mg PO QDAY Referrals / Follow Up: Daron Benton MD [Primary Care Provider, Family Practice] Kristopher Main MD [Non-Staff, Neurology] - Within 1 Month Disposition Disposition (needs filled in before D/C Order can be placed): Senior Care Facility
--- NOTE | 2025-08-12 15:43 | CASEMGMT ---
Patient has order for discharge. Patient discharging to [facility] for skilled level of care. 7000 completed. RN CM in to updated patient of discharge and that discharge strategic planning manager will complete discharge and setup transportation. Morris voiced appreciation and had no further questions or concerns. EVERT CHAVARRIA updated discharge strategic planning manager and provided discharge paperwork.
--- NOTE | 2025-08-12 17:02 | CASEMGMT ---
Discharge Planning Discharge orders, signed med list, and transport time sent to [facility]. [facility] transport pt by wheelchair at 7p. Nursing, SW, pt, and her son (Roberto) updated. Dena Torres DC Planning Asst.
--- NOTE | 2025-08-12 17:59 | NURSING ---
REPORT GIVEN TO JOSELIN AT [facility]-
--- NOTE | 2025-08-12 21:23 | NURSING ---
Called [facility] for update on transport, states will be picked up at 11pm now. Attempted to notify [facility] regarding time of transfer change but no answer to phone, left message to call for update. .
== END 2025-08-12 22:50 | disposition skilled nursing facility (03) | DRG 682 ==
LOC: ED 23:51 → PCU 23:54
PROVIDERS: Internal Medicine; Student in an Organized Health Care Education/Training Program; Admitting Provider Family Medicine; Emergency Provider Emergency Medicine; PCP Family Medicine; Visit Provider Internal Medicine
DX: N17.9 Acute kidney failure, unspecified (principal); G92.8 Other toxic encephalopathy; E44.0 Moderate protein-calorie malnutrition; J96.11 Chronic respiratory failure with hypoxia; Z68.1 Body mass index [BMI] 19.9 or less, adult; D69.6 Thrombocytopenia, unspecified; F07.81 Postconcussional syndrome; E86.0 Dehydration; E88.01 Alpha-1-antitrypsin deficiency; G35 Multiple sclerosis; J44.9 Chronic obstructive pulmonary disease, unspecified; L40.50 Arthropathic psoriasis, unspecified; D64.9 Anemia, unspecified; F32.A Depression, unspecified; I73.9 Peripheral vascular disease, unspecified; I12.9 Hypertensive chronic kidney disease with stage 1 through stage 4 chronic kidney disease, or unspecified chronic kidney disease; I65.23 Occlusion and stenosis of bilateral carotid arteries; I05.0 Rheumatic mitral stenosis; E03.9 Hypothyroidism, unspecified; I48.0 Paroxysmal atrial fibrillation; S00.03XA Contusion of scalp, initial encounter; E78.5 Hyperlipidemia, unspecified; N18.2 Chronic kidney disease, stage 2 (mild); K21.9 Gastro-esophageal reflux disease without esophagitis; F17.210 Nicotine dependence, cigarettes, uncomplicated; I25.10 Atherosclerotic heart disease of native coronary artery without angina pectoris; J30.9 Allergic rhinitis, unspecified; K59.00 Constipation, unspecified; W18.30XA Fall on same level, unspecified, initial encounter; F41.9 Anxiety disorder, unspecified; I25.2 Old myocardial infarction; Z95.5 Presence of coronary angioplasty implant and graft; Z79.01 Long term (current) use of anticoagulants; Z79.82 Long term (current) use of aspirin; Z79.890 Hormone replacement therapy; Z79.899 Other long term (current) drug therapy; Z86.73 Personal history of transient ischemic attack (TIA), and cerebral infarction without residual deficits; Z86.79 Personal history of other diseases of the circulatory system
CPT/HCPCS: 36415; 70450; 70486; 70553; 71045; 72125; 72170; 73030; 74176; 76770; 80048; 80053; 80076; 80307; 81001; 82077; 82140; 82550; 82570; 83735; 84100; 84145; 84300; 84443; 84484; 85025; 85610; 85730; 87086; 93005; 94668; 96361; 96374; 97162; 97166; 97530; 97802; 99285; 99406; A9575; A4216

== ENCOUNTER 2025-09-18 23:48 | Emergency (ER) | payer MEDICARE, MEDICAID, SELFPAY ==
[2025-09-18 23:48] VITALS: BP 171/90; PULSE 64; RESP 20; TEMP 36.6; O2SAT 99; BMI 20.6
--- NOTE | 2025-09-18 23:59 | RAD_ITS ---
PROCEDURE: RAD/HIP, UNI W/ Pelvis 2-3 Views
--- NOTE | 2025-09-19 | CT_ITS ---
PROCEDURE: CT/Spine Cervical without Contras
--- NOTE | 2025-09-19 | CT_ITS ---
PROCEDURE: CT/Brain/Head without Contrast
--- NOTE | 2025-09-19 00:08 | EX.ED.DYSGE1 ---
HPI History of Present Illness Chief Complaint: Fall Informant: patient and EMS Narrative Narrative: Patient is a 70-year-old female with past medical history of hypertension hyperlipidemia and paroxysmal atrial fibrillation currently on Eliquis. Patient states that roughly an hour before arrival she tried to get up off the couch and she lost her balance and fell forward smacking her head. She denies any loss of consciousness. She states she was able to get back up shortly after the fall. She states there has been no associated nausea vomiting or light sensitivity. However she has concern for underlying brain bleed as she is on Eliquis and struck her head and with this comes in for evaluation [facility] Medical History Head injury Chronic anemia Essential hypertension Hypertensive emergency NSTEMI, initial episode of care Mitral stenosis On home oxygen therapy Atrial fibrillation Chronic low back pain Diastolic hypertension Elevated troponin Chest pain PAF (paroxysmal atrial fibrillation) Emphysema of lung Smoking greater than 30 pack years Nicotine dependence, cigarettes, uncomplicated New onset atrial fibrillation Elevated troponin Atrial fibrillation Hypothyroidism Smoker Coronary artery disease TIA (transient ischemic attack) Influenza A [place] (dyspnea on exertion) Atherosclerotic heart disease of [place] coronary artery without angina pectoris Cardiac murmur Nonsustained paroxysmal supraventricular tachycardia Multiple sclerosis Nonobstructive atherosclerosis of coronary artery Peripheral vascular occlusive disease Essential (primary) hypertension Bilateral carotid artery stenosis History of transient ischemic attack (TIA) Fatty liver Thrombocytopenia GERD (gastroesophageal reflux disease) Psoriatic arthritis Psoriasis Osteoporosis Osteoarthritis Goiter Multiple sclerosis HLD (hyperlipidemia) Angina pectoris Chronic pain syndrome Home Medications ?Medication ?Instructions ?Recorded ?Last Taken ?Type levothyroxine 50 mcg tablet 50 mcg PO DAILY thyroid 08/11/21 04/21/25 History dextromethorphan-guaifenesin ER 60 1 tab PO Q12H PRN cough/congest 02/19/24 03/19/25 History mg-1,200 mg tab,extend release,12hr (Mucinex DM) famotidine 40 mg tablet 40 mg PO QDAY PRN indigestion 11/24/24 03/19/25 History cholecalciferol (vitamin D3) 125 125 mcg PO DAILY supplement 04/18/25 Unknown History mcg (5,000 unit) capsule docusate sodium 100 mg capsule 100 mg PO BID stool softener 7 04/18/25 Unknown Rx (Colace) days #14 caps polysaccharide iron complex 150 mg 150 mg PO DAILY 90 days #90 caps 04/22/25 Unknown Rx iron capsule (Ferrex) capsaicin 0.1 % topical cream 1 applic topical TID #60 grams 05/19/25 Unknown Rx food supplemt, lactose-reduced 120 ml PO TIDCM #21,330 mL 06/07/25 Unknown Rx 0.08 gram-1.5 kcal/mL oral liquid (Ensure Plus High Protein) baclofen 10 mg tablet 10 mg PO TID #0 tabs 06/09/25 Unknown Rx gabapentin 300 mg capsule 300 mg PO TID #0 caps 06/09/25 Unknown Rx pantoprazole 40 mg tablet,delayed 40 mg PO BIDCM #1 TAB 06/09/25 Unknown Rx release (Protonix) paroxetine HCl 10 mg tablet 10 mg PO DAILY #0 tabs 06/09/25 Unknown Rx potassium chloride 20 mEq 20 meq PO BIDCM #0 tabs 06/09/25 Unknown Rx tablet,extended release(part/cryst) quetiapine 25 mg tablet 50 mg (2 x 25 mg) PO QHS #0 tabs 06/09/25 Unknown Rx carvedilol 3.125 mg tablet 3.125 mg PO BIDCM heart #180 tabs 07/22/25 Unknown Rx apixaban 5 mg tablet (Eliquis) 5 mg PO Q12H anticoagulation #180 08/03/25 Unknown Rx tabs rosuvastatin 20 mg tablet 20 mg PO QHS hld #90 tabs 08/05/25 Unknown Rx furosemide 40 mg tablet 40 mg PO QDAY diuretic 08/06/25 Unknown History OXYGEN - Supplemental ([facility] hypoxia 08/10/25 08/10/25 History INFORMATIONAL USE ONLY) amlodipine 10 mg tablet 10 mg PO DAILY #0 tabs 08/12/25 Unknown Rx cyclobenzaprine 5 mg tablet 5 mg PO TID PRN Muscle Spasm #0 08/12/25 Unknown Rx tabs guaifenesin 1,200 mg tablet, 1,200 mg PO BID #0 tabs 08/12/25 Unknown Rx extended release 12 hr (Mucus Relief ER) oxycodone 5 mg tablet 10 mg (2 x 5 mg) PO Q6H PRN PRN 08/12/25 Unknown Rx Pain Score 4-10 1 day #8 tabs psyllium husk 3 gram oral powder 1 packet PO DAILY PRN PRN 08/12/25 Unknown Rx packet (Daily Fiber Constipation #0 ea (psyllium-aspartame)) Allergy/AdvReac Type Severity Reaction Status Date / Time colestipol (From Colestid) Allergy Mild unknown Verified 08/08/25 21:58 pregabalin (From Lyrica) Allergy Mild Hives Verified 08/08/25 21:58 amitriptyline Allergy Rash Verified 08/08/25 21:58 temazepam (From Restoril) AdvReac Mild Nausea/Vom/ Verified 08/08/25 21:58 Diarrhea Antihistamines - Alkylamine AdvReac Nausea/Vom/ Verified 08/08/25 21:58 Diarrhea Antihistamines - Ethanolamine AdvReac Nausea/Vom/ Verified 08/08/25 21:58 Diarrhea Antihistamines - AdvReac Nausea/Vom/ Verified 08/08/25 21:58 Ethylenediamine Diarrhea Antihistamines - Piperazine AdvReac Nausea/Vom/ Verified 08/08/25 21:58 Diarrhea Antihistamines - Piperidine AdvReac Nausea/Vom/ Verified 08/08/25 21:58 Diarrhea aspirin AdvReac I'M ON Verified 08/08/25 21:58 BLOOD THINNERS codeine AdvReac Nausea Verified 08/08/25 21:58 Corticosteroids AdvReac Upset Verified 08/08/25 21:58 (Glucocorticoids) Stomach morphine AdvReac Nausea Verified 08/08/25 21:58 [id number]-[id number]-UsY Reductase AdvReac Nausea Verified 08/08/25 21:58 Inhibitor (Jftywkh-Yrk-Ilm Reductase Inhibitor) Family History Mother Cancer CAD (coronary artery disease) Brain tumor Grandfather CVA (cerebral vascular accident) Father CAD (coronary artery disease) Ruptured abdominal aortic aneurysm (AAA) Sister Brain aneurysm Surgical History History of coronary artery stent placement History of appendectomy History of cholecystectomy History of angioplasty of peripheral vessel (07/11/19) Stenosis of left subclavian artery History of left heart catheterization (01/25/15) S/P coil embolization of cerebral aneurysm History of angioplasty of peripheral vessel History of right-sided carotid endarterectomy History of left-sided carotid endarterectomy History of partial thyroidectomy (11/30/05) History of hemorrhoidectomy History of hysterectomy History of section Brain aneurysm Fracture of right lower leg S/P insertion of iliac artery stent History of left breast biopsy H/O hemorrhoidectomy S/P hysterectomy H/O: S/P thyroidectomy Social History household members: none housing: apartment Smoking Status: Light Smoker (<10/day) alcohol intake: never caffeine: Yes Type: coffee and tea ROS ROS ED Constitutional Constitutional ED: Denies chills or fever(s) Eyes Eyes: Denies blurry vision or change in vision ENT ENT ED: Denies sore throat Cardiovascular Cardiovascular: Reports other Details: Negative syncope ; Denies chest pain Respiratory/Chest Respiratory/Chest: Denies cough or dyspnea Gastrointestinal Gastrointestinal: Denies abdominal pain, nausea or vomiting Musculoskeletal Musculoskeletal: Reports neck pain and other Details: Positive right hip pain ; Denies back pain Integumentary Reports rash; Denies Abrasions Neurologic Neurologic: Reports headache(s) Hematologic/Lymphatic Hematologic/Lymphatic: Reports easy bleeding and easy bruising EXAM Physical Exam Const Vital Signs: 09/18/25 23:48 09/18/25 23:51 Temperature 97.9 F Temperature Source Oral Pulse Rate 64 Respiratory Rate 20 H Respiratory Effort Normal Non-Labored Respiratory Depth Normal Respiratory Pattern Normal Blood Pressure 171/90 H Blood Pressure Mean 117 Pulse Ox 99 Oxygen Delivery Method Room Air Room Air Positive well nourished and well developed General Appearance ED: well developed HEENT HEENT Narrative: 2 x 2 cm hematoma along the right frontal portion of the forehead consistent with fall and head injury No signs of depressed or basilar skull fracture Eyes PERRL and EOMs intact bilaterally Neck Neck Narrative: No bony deformity or step-off of the cervical spine but there is lower midline pain on palpation Chest Wall palpation of chest normal Resp normal respiratory effort and clear to auscultation bilaterally Cardio regular rate and regular rhythm GI non-tender, non-distended and no masses GI Narrative: Soft nontender nondistended with hypoactive bowel sounds No voluntary guarding no rigidity or pulsatile mass Auscultation: hypoactive bowel sounds Palpation: soft Back/Spine Back/Spine Narrative: No bony deformity or step-off of the thoracic or lumbar spine No midline tenderness to palpation Extremity Extremity Narrative: Pelvis is stable there is no shortening or external rotation of either lower extremity There is pain palpation along the right greater trochanter without obvious bony deformity or joint effusion Patient is still able to lift both legs on her own Patient is able to move both upper extremities without pain or difficulty All compartments are soft and compressible going against compartment syndrome Neuro oriented x3, CN's II-XII intact bilaterally and no sensory deficits noted Sensorium / Orientation: alert Psych mental status grossly normal Skin Skin Narrative: Hematoma to the right frontal portion of the forehead as documented above MDM MDM MDM Narrative Medical decision making narrative: Patient arrived to ER hypertensive but has a past medical history of this. She reported mechanical fall and therefore there was no need for cardiac or syncope workup. She is on Eliquis and struck her head and there was concern for internal injury such as traumatic subarachnoid or subdural hematoma and therefore CT of the head was obtained. There is no bony deformity of her spine but she did report midline neck tenderness and therefore to rule out acute compression fracture or spondylolisthesis a CT of the cervical spine was ordered. Physical exam did not suggest femoral neck fracture but with concern for contusion versus pubic rami fracture a right hip x-ray was ordered. All images revealed no signs of acute trauma. Therefore there is no need for further observation or workup in the ER and she is otherwise safe for discharge. History & Record Review Discussion w/independent historian: EMS personnel and Patient Radiography Diagnostic Testing: Clinical Impression(s) from Imaging Studies Hip/Pelvis X-Ray 09/18/25 23:59 IMPRESSION: No evidence for acute abnormality. Reading Location: [facility] Brain CT 09/19/25 00:00 IMPRESSION: No acute cerebrovascular insult. If clinical symptoms persist, further evaluation with MRI may be considered as clinically warranted. No intracerebral or extra axial hemorrhage Right frontal scalp hematoma noted. Suprasellar aneurysmal clip inducing beam hardening artifacts Right frontal and left parietal subcortical chronic infarcts. Bilateral cerebral microvascular ischemic changes with brain involutional changes. No interval changes. Reading Location: [facility] Cervical Spine CT 09/19/25 00:00 IMPRESSION: Straightened cervical curve denoting myospasm. No vertebral fractures, structural collapse or acute dislocation. Cervical spondylodegenerative changes with multilevel uncovertebral and facet arthropathy along with diffuse disc bulges inducing spinal canal and neural exit pathway compromise. No interval changes. Reading Location: [place] [id number] Right hip x-ray with 1 view pelvis as interpreted by the emergency medicine physician reveals mild osteoarthritic changes without acute fracture dislocation or joint effusion Discharge Plan Triage Chief Complaint: Fall ED Provider: Yasmani Haynes Dx/Rx/DC Orders Clinical Impression: Closed head injury, Hematoma of frontal scalp, Contusion of hip, right, Essential hypertension, Paroxysmal atrial fibrillation, Current use of intermediate card tender anticoagulation Instructions: ED Head Injury (Adult), ED Hematoma, ED Hip Contusion Prescriptions: No Action levothyroxine 50 mcg tablet 50 mcg PO DAILY Patient Comments: take 1 tablet by mouth once daily famotidine 40 mg tablet 40 mg PO QDAY PRN (Reason: indigestion) rosuvastatin 20 mg tablet 20 mg PO QHS Qty: 90 3RF dextromethorphan-guaifenesin [Mucinex DM] 60-1,200 mg tablet extended release 12 hr 1 tab PO Q12H PRN (Reason: cough/congest) cholecalciferol (vitamin D3) 125 mcg (5,000 unit) capsule 125 mcg PO DAILY polysaccharide iron complex [Ferrex 150] 150 mg iron Capsule 150 mg PO DAILY 90 Days Qty: 90 0RF capsaicin 0.1 % cream 1 applic topical TID Qty: 60 0RF Rx Instructions: do not wash area for at least 30 min after application docusate sodium [Colace] 100 mg capsule 100 mg PO BID 7 Days Qty: 14 0RF Ensure Plus High Protein 0.08 gram-1.5 kcal/mL Liquid 120 ml PO TIDCM Qty: 74946 0RF baclofen 10 mg Tablet 10 mg PO TID Qty: 0 0RF quetiapine 25 mg Tablet 50 mg PO QHS Qty: 0 0RF paroxetine HCl 10 mg Tablet 10 mg PO DAILY Qty: 0 0RF potassium chloride 20 mEq Tablet,Er Particles/Crystals 20 meq PO BIDCM Qty: 0 0RF gabapentin 300 mg Capsule 300 mg PO TID Qty: 0 0RF pantoprazole [Protonix] 40 mg tablet,delayed release (DR/EC) 40 mg PO BIDCM Qty: 1 0RF OXYGEN - Supplemental ([facility] INFORMATIONAL USE ONLY) Patient Comments: 3L amlodipine 10 mg Tablet 10 mg PO DAILY Qty: 0 0RF cyclobenzaprine 5 mg Tablet 5 mg PO TID PRN (Reason: Muscle Spasm) Qty: 0 0RF guaifenesin [Mucus Relief ER] 1,200 mg Tablet Extended Release 12hr 1,200 mg PO BID Qty: 0 0RF Daily Fiber (psyllium-aspart) 3 gram Powder In Packet 1 packet PO DAILY PRN PRN (Reason: Constipation) Qty: 0 0RF oxycodone 5 mg Tablet 10 mg PO Q6H PRN PRN (Reason: Pain Score 4-10) 1 Days Qty: 8 0RF carvedilol 3.125 mg tablet 3.125 mg PO BIDCM Qty: 180 3RF Eliquis 5 mg tablet 5 mg PO Q12H Qty: 180 3RF furosemide 40 mg tablet 40 mg PO QDAY Primary Care Provider: Daron Benton Referrals: Daron Benton MD [Primary Care Provider, Family Practice] Activity Restrictions/Additional Instructions: Your imaging study showed no sign skull fracture or brain bleed or injury to your neck or hip. Please continue all of your home medication as directed and continue to use your walker to help with ambulation. Return to the ER should you have any further concerns Print Language: Italian Disposition Disposition: Home, Self Care
[2025-09-19 00:48] VITALS: BP 179/72; PULSE 68; RESP 16; TEMP 36.6; O2SAT 96
== END 2025-09-19 01:40 | disposition home or self-care (01) ==
PROVIDERS: Emergency Provider Emergency Medicine; PCP Family Medicine; Visit Provider Emergency Medicine
DX: S70.01XA Contusion of right hip, initial encounter (principal); I48.0 Paroxysmal atrial fibrillation; Z90.710 Acquired absence of both cervix and uterus; F17.200 Nicotine dependence, unspecified, uncomplicated; E78.5 Hyperlipidemia, unspecified; S00.03XA Contusion of scalp, initial encounter; Z79.01 Long term (current) use of anticoagulants; I10 Essential (primary) hypertension; I25.10 Atherosclerotic heart disease of native coronary artery without angina pectoris; W08.XXXA Fall from other furniture, initial encounter; I25.2 Old myocardial infarction; Z99.81 Dependence on supplemental oxygen; Z86.73 Personal history of transient ischemic attack (TIA), and cerebral infarction without residual deficits; E03.9 Hypothyroidism, unspecified; Z79.890 Hormone replacement therapy; K21.9 Gastro-esophageal reflux disease without esophagitis; Z79.899 Other long term (current) drug therapy; Z95.5 Presence of coronary angioplasty implant and graft; Z90.49 Acquired absence of other specified parts of digestive tract
CPT/HCPCS: 70450; 72125; 73502; 99284

== ENCOUNTER → 2025-09-21 | Outpatient (CLI) | payer MEDICARE, MEDICAID, SELFPAY ==
--- NOTE | 2025-09-21 06:29 | CT_ITS ---
PROCEDURE: CT/CTA Neck W/WO Contrast
[2025-09-21 07:15] LABS: CREATININE FINGERSTICK < 1.0 mg/dL (0.55-1.02); EGFR FINGERSTICK > 60.0000 mL/min (>60)
== END | disposition home or self-care (01) ==
PROVIDERS: PCP Family Medicine; Referring Provider Surgery Vascular Surgery; Visit Provider Surgery Vascular Surgery
DX: I65.23 Occlusion and stenosis of bilateral carotid arteries (principal); I77.1 Stricture of artery; F17.200 Nicotine dependence, unspecified, uncomplicated; Z86.73 Personal history of transient ischemic attack (TIA), and cerebral infarction without residual deficits; Z82.3 Family history of stroke
CPT/HCPCS: 70498; Q9967

== ENCOUNTER 2025-10-03 14:48 | Emergency (ER) | payer MEDICARE, MEDICAID, SELFPAY ==
[2025-10-03 14:49] VITALS: BP 174/84; PULSE 74; RESP 18; TEMP 37; O2SAT 98
--- NOTE | 2025-10-03 15:18 | ED.VIS.LOWEX ---
HPI History of Present Illness HPI Narrative: Patient presents with left foot pain that began last night. Patient states she accidentally hit it against a cabinet. Patient describes her pain as sharp and aching. Patient states nothing makes it better nothing makes it worse. Patient denies any paresthesias or weakness. Patient states the swelling has gotten worse today. Patient states she does have some pain with ambulation. Patient denies any other injuries. Chief Complaint: Lower Extremity Injury Informant: patient Occured/Mechanism Mechanism/Context: Yes blunt trauma Onset/Context/Timing Onset: Yesterday Context: Sudden Onset Timing: Continuous Quality of Pain: Sharp and Aching Location: Left foot and ankle Worsened by: Nothing Relieved by: Nothing Associated Symptoms Associated Symptoms: Negative for Parasthesia, Weakness or Loss of Funtion PFSH [facility] Medical History Head injury Chronic anemia Essential hypertension Hypertensive emergency NSTEMI, initial episode of care Mitral stenosis On home oxygen therapy Atrial fibrillation Chronic low back pain Diastolic hypertension Elevated troponin Chest pain PAF (paroxysmal atrial fibrillation) Emphysema of lung Smoking greater than 30 pack years Nicotine dependence, cigarettes, uncomplicated New onset atrial fibrillation Elevated troponin Atrial fibrillation Hypothyroidism Smoker Coronary artery disease TIA (transient ischemic attack) Influenza A [place] (dyspnea on exertion) Atherosclerotic heart disease of [place] coronary artery without angina pectoris Cardiac murmur Nonsustained paroxysmal supraventricular tachycardia Multiple sclerosis Nonobstructive atherosclerosis of coronary artery Peripheral vascular occlusive disease Essential (primary) hypertension Bilateral carotid artery stenosis History of transient ischemic attack (TIA) Fatty liver Thrombocytopenia GERD (gastroesophageal reflux disease) Psoriatic arthritis Psoriasis Osteoporosis Osteoarthritis Goiter Multiple sclerosis HLD (hyperlipidemia) Angina pectoris Chronic pain syndrome Home Medications Medication Instructions Recorded Last Taken Type levothyroxine 50 mcg tablet 50 mcg PO DAILY thyroid 08/11/21 04/21/25 History dextromethorphan-guaifenesin ER 60 1 tab PO Q12H PRN cough/congest 02/19/24 03/19/25 History mg-1,200 mg tab,extend release,12hr (Mucinex DM) famotidine 40 mg tablet 40 mg PO QDAY PRN indigestion 11/24/24 03/19/25 History cholecalciferol (vitamin D3) 125 125 mcg PO DAILY supplement 04/18/25 Unknown History mcg (5,000 unit) capsule docusate sodium 100 mg capsule 100 mg PO BID stool softener 7 04/18/25 Unknown Rx (Colace) days #14 caps polysaccharide iron complex 150 mg 150 mg PO DAILY 90 days #90 caps 04/22/25 Unknown Rx iron capsule (Ferrex) capsaicin 0.1 % topical cream 1 applic topical TID #60 grams 05/19/25 Unknown Rx food supplemt, lactose-reduced 120 ml PO TIDCM #21,330 mL 06/07/25 Unknown Rx 0.08 gram-1.5 kcal/mL oral liquid (Ensure Plus High Protein) baclofen 10 mg tablet 10 mg PO TID #0 tabs 06/09/25 Unknown Rx gabapentin 300 mg capsule 300 mg PO TID #0 caps 06/09/25 Unknown Rx pantoprazole 40 mg tablet,delayed 40 mg PO BIDCM #1 TAB 06/09/25 Unknown Rx release (Protonix) paroxetine HCl 10 mg tablet 10 mg PO DAILY #0 tabs 06/09/25 Unknown Rx potassium chloride 20 mEq 20 meq PO BIDCM #0 tabs 06/09/25 Unknown Rx tablet,extended release(part/cryst) quetiapine 25 mg tablet 50 mg (2 x 25 mg) PO QHS #0 tabs 06/09/25 Unknown Rx carvedilol 3.125 mg tablet 3.125 mg PO BIDCM heart #180 tabs 07/22/25 Unknown Rx apixaban 5 mg tablet (Eliquis) 5 mg PO Q12H anticoagulation #180 08/03/25 Unknown Rx tabs rosuvastatin 20 mg tablet 20 mg PO QHS hld #90 tabs 08/05/25 Unknown Rx furosemide 40 mg tablet 40 mg PO QDAY diuretic 08/06/25 Unknown History OXYGEN - Supplemental ([facility] hypoxia 08/10/25 08/10/25 History INFORMATIONAL USE ONLY) amlodipine 10 mg tablet 10 mg PO DAILY #0 tabs 08/12/25 Unknown Rx cyclobenzaprine 5 mg tablet 5 mg PO TID PRN Muscle Spasm #0 08/12/25 Unknown Rx tabs guaifenesin 1,200 mg tablet, 1,200 mg PO BID #0 tabs 08/12/25 Unknown Rx extended release 12 hr (Mucus Relief ER) oxycodone 5 mg tablet 10 mg (2 x 5 mg) PO Q6H PRN PRN 08/12/25 Unknown Rx Pain Score 4-10 1 day #8 tabs psyllium husk 3 gram oral powder 1 packet PO DAILY PRN PRN 08/12/25 Unknown Rx packet (Daily Fiber Constipation #0 ea (psyllium-aspartame)) hydrocodone-acetaminophen 5-325mg 1 tab PO Q6H PRN PRN Pain 3 days 10/03/25 Unknown Rx 5mg-325mg #10 TABLETS Allergy/AdvReac Type Severity Reaction Status Date / Time colestipol (From Colestid) Allergy Mild unknown Verified 10/03/25 14:52 pregabalin (From Lyrica) Allergy Mild Hives Verified 10/03/25 14:52 amitriptyline Allergy Rash Verified 10/03/25 14:52 temazepam (From Restoril) AdvReac Mild Nausea/Vom/ Verified 10/03/25 14:52 Diarrhea Antihistamines - Alkylamine AdvReac Nausea/Vom/ Verified 10/03/25 14:52 Diarrhea Antihistamines - Ethanolamine AdvReac Nausea/Vom/ Verified 10/03/25 14:52 Diarrhea Antihistamines - AdvReac Nausea/Vom/ Verified 10/03/25 14:52 Ethylenediamine Diarrhea Antihistamines - Piperazine AdvReac Nausea/Vom/ Verified 10/03/25 14:52 Diarrhea Antihistamines - Piperidine AdvReac Nausea/Vom/ Verified 10/03/25 14:52 Diarrhea aspirin AdvReac "I'M ON Verified 10/03/25 14:52 BLOOD THINNERS" codeine AdvReac Nausea Verified 10/03/25 14:52 Corticosteroids AdvReac Upset Verified 10/03/25 14:52 (Glucocorticoids) Stomach morphine AdvReac Nausea Verified 10/03/25 14:52 Ogbxppe-JXA-DpR Reductase AdvReac Nausea Verified 10/03/25 14:52 Inhibitor (Dezdbzx-Mna-Psj Reductase Inhibitor) Family History Mother Cancer CAD (coronary artery disease) Brain tumor Grandfather CVA (cerebral vascular accident) Father CAD (coronary artery disease) Ruptured abdominal aortic aneurysm (AAA) Sister Brain aneurysm Surgical History History of coronary artery stent placement History of appendectomy History of cholecystectomy History of angioplasty of peripheral vessel (07/11/19) Stenosis of left subclavian artery History of left heart catheterization (01/25/15) S/P coil embolization of cerebral aneurysm History of angioplasty of peripheral vessel History of right-sided carotid endarterectomy History of left-sided carotid endarterectomy History of partial thyroidectomy (11/30/05) History of hemorrhoidectomy History of hysterectomy History of section Brain aneurysm Fracture of right lower leg S/P insertion of iliac artery stent History of left breast biopsy H/O hemorrhoidectomy S/P hysterectomy H/O: S/P thyroidectomy Social History household members: none housing: apartment Smoking Status: Light Smoker (<10/day) alcohol intake: never caffeine: Yes Type: coffee and tea ROS ROS ED Constitutional Constitutional ED: Denies chills or fever(s) Eyes Eyes: Denies blurry vision or change in vision ENT ENT ED: Denies rhinorrhea or sore throat Cardiovascular Cardiovascular: Denies chest pain or palpitations Respiratory/Chest Respiratory/Chest: Denies cough or dyspnea Gastrointestinal Gastrointestinal: Denies nausea or vomiting Genitourinary Genitourinary ED: Denies dysuria or hematuria Musculoskeletal Musculoskeletal: Denies back pain or neck pain Integumentary Denies abscess or rash Neurologic Neurologic: Denies headache(s) or weakness Allergic/Immunologic Allergic/Immunologic ED: Denies mouth swelling or urticaria EXAM Physical Exam Const Vital Signs: 10/03/25 14:49 10/03/25 16:48 Temperature 98.6 F Temperature Source Oral Pulse Rate 74 76 Respiratory Rate 18 18 Blood Pressure 174/84 H Blood Pressure Mean 114 Pulse Ox 98 95 Oxygen Delivery Method Room Air Positive well nourished and well developed General Appearance ED: well developed and NAD HEENT Reports moist mucous membranes normocephalic and atraumatic Neck full ROM and supple Extremity Extremity Narrative: There is tenderness and edema over the left foot. There is also mild tenderness over the lateral aspect of the left ankle. There is no obvious deformity noted. Range of motion was slightly limited in all motions of the left foot and ankle secondary to pain. Sensation was intact to light touch in all digits. Capillary refill was less than 2 seconds in all digits. There is 2+ pedal pulse palpated. Neuro oriented x3, CN's II-XII intact bilaterally, moves all extremities and no sensory deficits noted Sensorium / Orientation: alert Motor Exam: strength 5/5 throughout Psych mental status grossly normal MDM MDM MDM Narrative Medical decision making narrative: Differential diagnosis includes fracture, contusion, and sprain. X-rays of the left ankle and left foot will be obtained to assess for fracture. Radiography Diagnostic Testing: X-rays of the left foot were obtained. There are 3 views. On my independent interpretation, there is no acute fracture. There is no dislocation. There is some mild soft tissue swelling. Radiologist also interpreted the x-rays and agrees. X-rays of the left ankle were obtained. There are 3 views. On my independent interpretation, there is no acute fracture. There is no dislocation. There is some mild soft tissue swelling. Radiologist also interpreted the x-rays and agrees. Treatment and Re-Evaluation Narrative: Patient was given a dose of [place] here. Patient was advised of her findings. Patient was given a walking boot. Patient was instructed to follow-up with her primary care physician in 5 to 7 days. Patient was instructed return if worse in any way. Patient understood and was agreeable with the plan. All questions were answered. Discharge Plan Triage Chief Complaint: Lower Extremity Injury ED Provider: Daron Estevez Dx/Rx/DC Orders Clinical Impression: Sprain of left foot, Essential hypertension Instructions: ED Foot Sprain Prescriptions: New hydrocodone-acetaminophen 5-325 mg tablet 1 tab PO Q6H PRN PRN (Reason: Pain) 3 Days Qty: 10 0RF No Action levothyroxine 50 mcg tablet 50 mcg PO DAILY Patient Comments: take 1 tablet by mouth once daily famotidine 40 mg tablet 40 mg PO QDAY PRN (Reason: indigestion) rosuvastatin 20 mg tablet 20 mg PO QHS Qty: 90 3RF dextromethorphan-guaifenesin [Mucinex DM] 60-1,200 mg tablet extended release 12 hr 1 tab PO Q12H PRN (Reason: cough/congest) cholecalciferol (vitamin D3) 125 mcg (5,000 unit) capsule 125 mcg PO DAILY polysaccharide iron complex [Ferrex 150] 150 mg iron Capsule 150 mg PO DAILY 90 Days Qty: 90 0RF capsaicin 0.1 % cream 1 applic topical TID Qty: 60 0RF Rx Instructions: do not wash area for at least 30 min after application docusate sodium [Colace] 100 mg capsule 100 mg PO BID 7 Days Qty: 14 0RF Ensure Plus High Protein 0.08 gram-1.5 kcal/mL Liquid 120 ml PO TIDCM Qty: 76330 0RF baclofen 10 mg Tablet 10 mg PO TID Qty: 0 0RF quetiapine 25 mg Tablet 50 mg PO QHS Qty: 0 0RF paroxetine HCl 10 mg Tablet 10 mg PO DAILY Qty: 0 0RF potassium chloride 20 mEq Tablet,Er Particles/Crystals 20 meq PO BIDCM Qty: 0 0RF gabapentin 300 mg Capsule 300 mg PO TID Qty: 0 0RF pantoprazole [Protonix] 40 mg tablet,delayed release (DR/EC) 40 mg PO BIDCM Qty: 1 0RF OXYGEN - Supplemental ([facility] INFORMATIONAL USE ONLY) Patient Comments: 3L amlodipine 10 mg Tablet 10 mg PO DAILY Qty: 0 0RF cyclobenzaprine 5 mg Tablet 5 mg PO TID PRN (Reason: Muscle Spasm) Qty: 0 0RF guaifenesin [Mucus Relief ER] 1,200 mg Tablet Extended Release 12hr 1,200 mg PO BID Qty: 0 0RF Daily Fiber (psyllium-aspart) 3 gram Powder In Packet 1 packet PO DAILY PRN PRN (Reason: Constipation) Qty: 0 0RF oxycodone 5 mg Tablet 10 mg PO Q6H PRN PRN (Reason: Pain Score 4-10) 1 Days Qty: 8 0RF carvedilol 3.125 mg tablet 3.125 mg PO BIDCM Qty: 180 3RF Eliquis 5 mg tablet 5 mg PO Q12H Qty: 180 3RF furosemide 40 mg tablet 40 mg PO QDAY Primary Care Provider: Daron Benton Referrals: Daron Benton MD [Primary Care Provider, Family Practice] - 5-7 Days Print Language: Indonesian Disposition Disposition: Home, Self Care
[2025-10-03] MEDS: HYDROcodone Bitartrate/Apap 5/325 Tablet PO (15:26)
--- NOTE | 2025-10-03 15:30 | RAD_ITS ---
PROCEDURE: ANKLE MIN 3 VIEWS; FOOT MIN 3 VIEWS 10/03/2025 REASON FOR EXAM: INJURY/PAIN TECHNIQUE: Procedure Code: RADANK; RADFO Modality: DX Procedure: ANKLE MIN 3 VIEWS; FOOT MIN 3 VIEWS Laterality: Left COMPARISON: None available. FINDINGS: Bones: No acute fractures. Joints: Normal alignment. Mortise appears intact. No effusion. Soft tissues: Soft tissues are unremarkable. RAD/Foot min 3 Views IMPRESSION: NO ACUTE FRACTURE OR DISLOCATION. Reading [facility]
--- OUTSIDE RECORDS SUMMARY | 2025-10-03 15:38 | XMS RPT_ITS | CCD ---
Author Organization [facility] CliniSynd Care Team Providers Care Make Ready Mechanic Name Role Phone YOGESH ONOFRE Unavailable Unavailabl [...] Attending Provider Dr. Orlando Jacob Attending Provider 1([facility])[phone] Daron Benton Primary Care [...] Provider Unavailable Dr. Go Alejo Other Provider [phone] Jesus Alfonso Other Provider Dr. Kehinde [...] Referring Provider Lisa, Dr. Brown Attending Provider [phone] Dr. Eva Mortensen Attending Provider Dr. Eva [...] HAMMOND, Negar Cheema Attending Provider Dr. Benjy Floers DO Referring Provider Dr. Benjy Flores DO Emergency Provider Martín FOX, Dr. Sommer Hebert Admit Provider Martín FOX, Dr. Sommer Hebert Other Provider Kati FOX, Dr. Strauss [facility], Dr. Kowalski Attending Provider Kati FOX, Dr. Strauss Attending Provider [facility] , Dr. Kowalski Other Provider Baljit [...] Provider Kati FOX, Dr. Strauss Other Provider [facility], Dr. Kowalski Attending Provider [...] Dr. Yasmani Haynes DO Attending Provider Kirk MOUNTER CLARINETS-CIona Attending Provider Esperanza FOX, Dr. Neri Primary Care Provider Esperanza FOX, Dr. Neri Referring Provider Esperanza FOX, Dr. Neri Other Provider Elijah FOX, Dr. Tye Santos Attending Provider Elijah FOX, Dr. Tye Santos Referring Provider Robert MOUNTER CLARINETS-C, Lizz Attending Provider Unavail able Robert MOUNTER CLARINETS-C, Lizz Referring Provider Unavail jason Mckeon MD, [...] Yoselin FOX, Dr. Zavala Attending Provider Larissa MOUNTER CLARINETS-C, Karen Attending Provider Larissa MOUNTER CLARINETS-C, Karen Attending Provider Shannan HERNANDEZ, Dr. Lake [...] Gonzalez DO, Dr. Brown Attending Physician Kirk MOUNTER CLARINETS-CIona Attending Physician Esperanza FOX, Dr. Neri Nurse Practitioner Elijah FOX, Dr. Tye Santos Attending Physician Robert MARTÍNEZC, Lizz Attending Physician Gloria Mckeon MD, Dr. Owens Admitting Physician Unavail able Gm HERNANDEZ, Dr. Kowalski Attending Physician [phone] Gm HERNANDEZ, Dr. Kowalski Nurse Practitioner Yoselin FOX, Lucas Attending Physician Unavail able Larissa MOUNTER CLARINETS-C, Karen Attending Physician Yoselin FOX, Dr. Zavala Attending Physician Shannan HERNANDEZ, Dr. Lake Attending Physician Shannan HERNANDEZ, Dr. Lake Emergency Department Physician Case FOX, Dr. Bardales Attending Physician Betsey Davenport Attending Physician Esperanza FOX, Dr. Neri Primary Care Physician Linda FOX, Dr. Owens Nurse Practitioner Inge Gonzalez DO, Dr. Brown Attending Physician Ivy HERNANDEZ, Dr. Gruber Attending Physician Ivy HERNANDEZ, Dr. Gruber Emergency Department Physic fauzia Kingston FOX, Dr. Elmore Attending Physician Kingston FOX, Dr. Elmore Emergency Department Physici an Martín FOX, Dr. Sommer Hebert Admitting Physician Martín FOX, Dr. Sommer Hebert Nurse Practitioner Festus HERNANDEZ, Dr. Velasquez Attending Physician Shirley FOX, Dr. Neha Lewis Nurse Practitioner Shirley FOX, Dr. Neha Lewis Attending Physician Aby FOX, Dr. Serrato Nurse Practitioner Festus HERNANDEZ, Dr. Velasquez Nurse Practitioner Esperanza FOX, Dr. Neri Primary Care Physician Ivy HERNANDEZ, Dr. Gruber Emergency Department Physic fauzia Linda FOX, Dr. Owens Admitting Physician Unavail jason Mckeon MD, Dr. Owens Nurse Practitioner Unavaila singh Worrell DO, Dr. Kowalski Attending Physician Linda FOX, Dr. Owens Attending Physician Unavail jason Mckeon MD, Dr. Owens Referring Provider Unavaila singh Gonzalez DO, Dr. Brown Attending Physician [phone] Gm HERNANDEZ, Dr. Kowalski Referring Provider [phone] Gm HERNANDEZ, Dr. Kowalski Nurse Practitioner Yoselin FOX, Lucas Attending Physician Unavail jason Dias MOUNTER CLARINETS-C, Karen Attending Physician Yoselin FOX, Dr. Zavala Attending Physician Shannan HERNANDEZ, Dr. Lake Attending Physician Shannan HERNANDEZ, Dr. Lake Emergency Department Physician Kingston FOX, Dr. Elmore Attending Physician [place] FOX, Dr. Elmore Emergency Department Physici an Case FOX, Dr. Bardales Attending Physician Case FOX, Dr. Bardales Emergency Department Physician Esperanza FOX, Dr. Neri Referring Provider [phone] Lexa PEÑA, Betsey Cheema Attending Physician Martín FOX, Dr. Sommer Hebert Admitting Physician Martín FOX, Dr. Sommer Hebert Nurse Practitioner Festus HERNANDEZ, Dr. Velasquez Attending Physician Shirley FOX, Dr. Neha Lewis Nurse Practitioner Shirley FOX, Dr. Neha Lewis Attending Physician Aby FOX, Dr. Serrato Nurse Practitioner Festus HERNANDEZ, Dr. Velasquez Nurse Practitioner Baljit FOX, Dr. Mejia Attending Physician Baljit FOX, Dr. Mejia Referring Provider Elijah FOX, Dr. Tye Santos Attending Physician [phone] Elijah FOX, Dr. Tye Santos Referring Provider White, Sommer L Admitting Unavailable Belal, Kleverouk Consulting Unavailable MarkIsmael colemanon Referring Unavailable Benton, Daron Primary Care Unavailable Dex Worrell Attending Unavailable WhiteSommer Consulting Unavailable Koram, Neha Debbie Consulting Unavailable Shirley, Neha Debbie Attending Unavailable Trina Tyler Admitting Unavailable Benton, Daron Primary Care Unavailable Husam, Billyapradee Consulting Unavailabl e Trina Tyler Consulting Unavailable Sachin Murillo Admitting Unavailable Roman Mckeon Attending Unavailable Vernon Murilloolas F Consulting Unavailable Lidia, Sachin F Referring Unavailable Benton, Daron Primary Care Unavailable Roman Mckeon Admitting Unavailable Dex Worrell Attending Unavailable Roman Mckeon Consulting Unavailable Benton, Daron Primary Care Unavailable WhiteSommer Consulting Unavailable White, Sommer L Admitting Unavailable Eva Mortensen Attending Unavailable Benton, Daron Primary Care Unavailable Koram, Neha Debbie Consulting Unavailable Orlando Jacob Attending Unavailable Betsey Davenport Referring Unavail able Orlando Jacob Consulting Unavailable Benton, Daron Primary Care Unavailable Tye Barnett Referring Unavailable Tye Barnett Attending Unavailable Benton, Daron Consulting Unavailable Benton, Daron Primary Care Unavailable Jeffy Willoughby Attending Unavailable Benton, Daron Primary Care Unavailable Benton, Daron Primary Care Unavailable Jeffy Willoughby Attending Unavailable Nuno Grider Referring Unavailable Nuno Grider Attending Unavailable Benton, Daron Primary Care Unavailable Ramírez Onofre Attending Unavailable Benton, Daron Primary Care Unavailable Ramírez Onofre Attending Unavailable Benton, Daron Primary Care Unavailable Jaya Campbell Attending Unavailable Benton, Daron Primary Care Unavailable Yasmani Haynes Attending Unavailable Yasmani Haynes Referring Unavailable Benton, Daron Primary Care Unavailable Jorge Hurtado Attending Unavailable Jorge Hurtado Referring Unavailable Benton, Daron Primary Care Unavailable BrownPerryk Referring Unavailable Benton, Daron Primary Care Unavailable BrownJorge Attending Unavailable Benton, Daron Primary Care Unavailable Benton, Daron Attending Unavailable Benton, Daron Referring Unavailable Negar Mckeon Attending Unavailable Benton, Daron Referring Unavailable Benton, Daron Primary Care Unavailable Orlando Jacob Attending Unavailable Benton, Daron Primary Care Unavailable Benton, Daron Primary Care Unavailable Negar Mckeon Attending Unavailable Benton, Daron Referring Unavailable Negar Mckeon Attending Unavailable Benton, Daron Primary Care Unavailable Benton, Daron Referring Unavailable Iona Bradley Attending Unavailable Benton, Daron Referring Unavailable Benton, Daron Primary Care Unavailable White, Sommer L Admitting Unavailable Benjy Flores Referring Unavailable Benton, Daron Primary Care Unavailable Carlos A Parikh Consulting Unavailable Bhavik Smiley Attending Unavailable White, Sommer L Consulting Unavailable Korshari, Neha Debbie Consulting Unavailable Gm, Dex Consulting Unavailable Roman Mckeon Admitting Unavailable LisaKevin Attending Unavailable Dex Worrell Referring Unavailable Roman Mckeon Consulting Unavailable Benton, Daron Primary Care Unavailable Tereletsky, Dex Consulting Unavailable White, Sommer L Consulting Unavailable White, Sommer L Attending Unavailable White, Sommer L Admitting Unavailable Benton, Daron Primary Care Unavailable Roman Mckeon Attending Unavailable Dex Worrell Attending Unavailable Eva Mortensen Attending Unavailable Koram, Neha Debbie Consulting Unavailable Eva Mortensen Consulting Unavailable White Sommer L Attending Unavailable Sukhi Parikhk Attending Unavailable Shirley, Neha Debbie Attending Unavailable Dex Worrell Attending Unavailable Kofi Weiner Attending Unavailabl Latisha Hameedademarcelle Consulting Unavailabl e Trina Tyler Admitting Unavailable Benton, Daron Primary Care Unavailable Trina Tyler Consulting Unavailable Koram, Neha Debbie Consulting Unavailable Koram, Neha Debbie Attending Unavailable Betsey Davenport Attending Unavail able Benton, Daron Primary Care Unavailable Benton, Daron Referring Unavailable Benton, Daron Primary Care Unavailable Betsey Davenport Attending Unavail able Benton, Daron Referring Unavailable Brown, Jorge Referring Unavailable Brown, Jorge Consulting Unavailable Perry Hurtadok Attending Unavailable Benton, Daron Primary Care Unavailable Koram, Neha Debbie Attending Unavailable Aby, Jayaprakas Consulting Unavailable Yasmani Haynes Attending Unavailable Benton, Daron Primary Care Unavailable Yasmani Haynes Attending Unavailable Benton, Darno Primary Care Unavailable Jeffy Willoughby Attending Unavailable Benton, Daron Primary Care Unavailable Lucas Fritz Attending Unavailabl e Benton, Daron Primary Care Unavailable Tye Barnett Attending Unavailable Tye Barnett Referring Unavailable Benton, Daron Primary Care Unavailable Lucas Fritz Attending Unavailabl e Benton, Daron Primary Care Unavailable Lucas Fritz Attending Unavailabl e Benton, Daron Primary Care Unavailable Yasmani Haynes Attending Unavailable Benton, Daron Primary Care Unavailable Lizz Lynn Referring Unavailable Lizz Lynn Attending Unavailable Benton, Daron Primary Care Unavailable Roman Mckeon Referring Unavailable Sachin Murillo Admitting Unavailable Sachin Murillo Attending Unavailable Sachin Murillo Consulting Unavailable Sachin Murillo F Referring Unavailable Benton, Daron Primary Care Unavailable Roman Mckeon Attending Unavailable Roman Mckeon Consulting Unavailable Kevin Gonzalez Attending Unavailable Benton, Daron Primary Care Unavailable Lucas Wyatt Attending Unavailable Larissa MOUNTER CLARINETS, Karen Attending Unavailable Benton, Daorn Primary Care Unavailable Larissa MOUNTER CLARINETS, Karen Attending Unavailable Benton, Daron Primary Care Unavailable Betsey Davenport Attending Unavail able Benton, Daron Referring Unavailable Benton, Daron Primary Care Unavailable Betsey Davenport Attending Unavail able Benton, Daron Primary Care Unavailable Benton, Daron Referring Unavailable Trina Tyler Attending Unavailable Kofi Weiner Attending UnavailTrina Morales Referring Unavailable Benton, Daron Primary Care Unavailable Kofi Weiner Attending Unavailabl e Benton, Daron Primary Care Unavailable Orlando Jacob Attending Unavailable Benton, Daron Primary Care Unavailable Benton, Daron Referring Unavailable Allergies Allergy Classification Reported Allergen(s) Allergy Type Date of Onset Reaction(s) Facility (4 sources) Antihistamines; Translations: [ANTIHISTAMINES] Propensity to adverse reactions to drug (disorder) 04-28-20 04 [facility] Repository (3 sources) clopidogrel; Translations: [CLOPIDOGREL BISULFATE] Drug Allergy 12-18-19 12 Other: See Comments [facility] Repository (20 sources) codeine; Translations: [CODEINE] Drug Allergy 04-28-20 04 Nausea [facility] (3 sources) fenofibrate; Translations: [FENOFIBRATE MICRONIZED] Drug Allergy 04-27-20 11 Intolerance [facility] (20 sources) fentaNYL; Translations: [FENTANYL] Drug Allergy 02-19-20 12 Other: See Comments [facility] (3 sources) Hmg-Coa Reductase Inhibitors (Statins); Translations: [XNZYKBG-[id number]-NWG REDUCTASE INHIBITORS] Propensity to adverse reactions to drug (disorder) 04-27-20 11 Intolerance [facility] (20 sources) morphine; Translations: [MORPHINE] Drug Allergy 04-28-20 04 Nausea, Vomiting [facility] (20 sources) predniSONE; Translations: [PREDNISONE] Drug Allergy 12-15-19 09 [facility] (20 sources) salicylic acid; Translations: [SALICYLATES] Drug Allergy 12-04-19 09 [facility] (20 sources) Amitriptyline Drug Allergy 03-12-20 19 Rash [facility] (20 sources) Aspirin; Translations: [aspirin] Drug Allergy 02-15-20 Ulcer (morphologic abnormality) [facility] (20 sources) Colestipol; Translations: [colestipol] Drug Allergy 02-15-20 22 unknown [facility] (20 sources) Ethylenediamine derivative antihistamine Propensity to adverse reactions 02-15-20 Nausea/Vom/[place] (20 sources) pregabalin Drug Allergy 02-15-20 22 Hives [facility] (20 sources) Temazepam Drug Allergy 02-15-20 22 Nausea/Vom/[place] (20 sources) Antihistamines - Alkylamine; Translations: [Antihistamines - Alkylamine] Propensity to adverse reactions 02-15-20 Nausea/Vom/[place] (20 sources) Antihistamines - Ethanolamine; Translations: [Antihistamines - Ethanolamine] Propensity to adverse reactions 02-15-20 22 Nausea/Vom/[place] (20 sources) Antihistamines - Piperazine; Translations: [Antihistamines - Piperazine] Propensity to adverse reactions 02-15-20 22 Nausea/Vom/[place] (20 sources) Antihistamines - Piperidine; Translations: [Antihistamines - Piperidine] Propensity to adverse reactions 02-15-20 22 Nausea/Vom/[facility] (20 sources) Bkizvrz-Dcm-Vej Reductase Inhibitor; Translations: [Qeulwah-Oby-Nck Reductase Inhibitor] Propensity to adverse reactions 02-15-20 22 Nausea [facility] (8 sources) STEROIDS BY MOUTH Propensity to adverse reactions 02-15-20 22 Upset Stomach [facility] (1 source) HMG-CoA reductase inhibitor; Translations: [statins] Drug allergy [facility] (20 sources) Glucocorticoid Receptor Agonists Propensity to adverse reactions 03-16-20 23 Upset Stomach [facility] (18 sources) clopidogrel Drug Allergy 12-18-19 [facility] (18 sources) Fenofibrate Drug Allergy 04-27-20 [facility] (18 sources) Antihistamines, Diphenhydramine-Ty pe Drug Intolerance 09-17-20 [facility] (1 source) Amitriptyline Drug Allergy 08-08-20 [facility] (1 source) Aspirin Drug Allergy 08-08-20 [facility] (1 source) Colestipol Drug Allergy 08-08-20 [facility] (1 source) Corticosteroids Drug allergy (disorder) 08-08-20 [facility] (1 source) pregabalin Drug Allergy 08-08-20 [facility] (1 source) Temazepam Drug Allergy 08-08-20 [facility] (1 source) Antihistamines - Ethylenediamine Drug allergy (disorder) 08-08-20 [facility] Repository Medications Current Medications Medication Drug Class(es) Dates Sig (Normalized) Sig (Original) acetaminophen 325 mg / HYDROcodone bitartrate 5 mg oral tablet (1 source) Opioid Agonist take 1 tablet by mouth every six hours as needed HYDROcodone-acetam inophen (NORCO) 5-325 mg per tablet Take 1 tablet by mouth every 6 hours as needed. Active [id number] 200 actuat albuterol 0.09 mg/actuat metered dose [...] by mouth daily at bedtime. Active amLODIPine 10 mg oral tablet (20 sources) Dihydropyridine Calcium Channel Elil Start: 08-12-2025 Start: 05-13-2025 End: 08-12-2025 Start: 11-24-2024 End: 05-13-2025 Start: 11-24-2024 End: 01-13-2025 take 1 tablet by mouth once daily Amlodipine (Norvasc) 5 mg tablet Discontinued 5 mg PO daily 90 November 24, 2024 1:00am January 13, 2025 [...] daily. Active capsaicin 1 mg/ml topical cream (14 sources) Start: 05-19-2025 carvedilol 3.125 mg oral tablet (20 sources) alpha-Adrenergic Elli, beta-Adrenergic Elli Start: 07-22-2025 Start: 01-13-2025 End: 06-07-2025 Start: 12-11-2024 End: 12-12-2024 cholecalciferol 0.125 mg ora l capsule (20 sources) Vitamin D Start: 02-27-2022 Start: 12-16-2013 take 1 tablet by celeste once daily Cholecalciferol (Vitamin D3) 5,000 UNIT tablet Active 5000 U PO DAILY December 16, 2013 1:00am cyclobenzaprine hydrochlorid e 5 mg oral tablet (2 sources) Muscle Relaxant Start: 08-12-2025 12 hr dextromethorphan hydrobromide 60 mg / guaiFENesin 1200 mg extended release oral tablet (20 sources) Uncompetitive V-spuhcg-J-aspartate Receptor Antagonist, Sigma-1 Agonist Start: 11-16-2023 End: 02-19-2024 Start: 11-16-2023 End: 02-19-2024 take 60-1200 mg by mouth every twelve hours as needed Dextromethorphan-Guaifenesin (Mucinex Dm ) 60-1,200 mg tablet extended release 12 hr Active 1 {tbl} PO Q12H as needed for cough/congest February 19, 2024 12:00am Start: 11-16-2023 End: 02-19-2024 docusate sodium 100 mg oral capsule (20 sources) Start: 04-18-2025 esomeprazole 40 mg delayed release oral capsule (1 source) Proton Pump Inhibitor Start: 12-28-2015 take 1 capsule by mouth once daily esomeprazole (NEXIUM) 40 mg capsule Take 1 capsule by mouth once daily. 30 capsule 4 12/28/2015 Active famotidine 40 mg oral tablet (20 sources) Histamine-2 Receptor Antagonist Start: 08-21-2024 End: 11-24-2024 Start: 12-21-2023 End: 02-25-2024 gabapentin 300 mg oral capsu le (20 sources) Anti-epileptic Agent Start: 06-09-2025 Start: 07-16-2018 End: 06-09-2025 Start: 02-02-2015 take 1 capsule by mo ut three times daily gabapentin (NEURONTIN) 400 mg capsule Take 1 capsule by mouth three times daily. 0 02/02/2015 Active Start: 01-24-2015 End: 07-16-2018 Start: 01-24-2015 End: 07-16-2018 12 hr guaiFENesin 1200 mg extended release oral tablet (2 sources) Start: 08-12-2025 levothyroxine sodium 0.075 mg oral tablet (20 [...] 07-16-2018 Start: 08-23-2011 take 2 tablets by [facility] once daily levothyroxine 25 mcg ORAL tablet [...] Active PARoxetine hydrochloride 10 mg oral tablet (11 sources) Serotonin Reuptake Inhibitor Start: 06-09-2025 polysaccharide iron complex 150 mg oral capsule (17 sources) Start: 04-22-2025 microencapsulated potassium chloride 20 meq extended release oral tablet (20 sources) Start: 06-09-2025 Start: 04-22-2025 End: 06-09-2025 QUEtiapine 25 mg oral tablet (11 sources) Atypical Antipsychotic Start: 06-09-2025 rosuvastatin calcium 20 mg o ral tablet (20 sources) HMG-CoA Reductase Inhibitor Start: 08-05-2025 Start: 02-14-2025 End: 08-05-2025 Start: 11-24-2024 End: 12-09-2024 Vitamin D3 (1 source) Start: 11-07-2022 Vitamin D3 Dos e : 125 mcg = 1 cap(s), Oral, qDay, 0 Refill(s) Start Date: 11/07/22 Status: Ordered (20 sources) Start: 08-12-2025 Start: 08-10-2025 Start: 06-07-2025 Start: 12-24-2024 End: 04-18-2025 Start: [...] HOURS NEEDED as needed for Pain 12 3 February 09, 2021 February 11, 2021 12:00am [...] aspirin 81 mg delayed release oral tablet (20 sources) Platelet Aggregation Inhibitor, Nonsteroidal Anti-inflammatory Drug [...] mg tablet Discontinued 75 mg PO DAILY 90 June 01, 2023 10:09am February 19, 2024 11:09am doxepin hydrochloride 10 mg/ ml oral solution (18 sources) Tricyclic Antidepressant Start: 04-18-2025 End: 08-05-2025 Start: 04-18-2025 take 5-10 mg by mouth at bedti wy Doxepin 10 mg/mL concentrate Active 5 - [...] 07, 2021 11:00pm August 11, 2021 10:18am furosemide 40 mg oral tablet (17 sources) Loop Diuretic Start: 06-09-2025 End: 08-06-2025 ipratropium bromide 0.042 mg/actuat metered dose nasal spray (20 sources) Anticholinergic Start: 04-18-2025 Ipratropium Br omide 42 mcg (0.06 %) spray,non-aerosol Active 2 NMA INTRANASAL THREE TIMES A DAY as needed for allergy symptoms April 18, 2025 12:00am administer into each nostril Start: 12-24-2024 End: 05-06-2025 Ipratropium [place] 42 mcg ( 0.06 %) spray,non-aerosol (2 sources) Start: 12-24-2024 End: 04-18-2025 Ipratropium [place] 42 mcg (0.06 %) spray,non-aerosol Discontinued 2 [...] bedtime metoclopramide 5 mg oral tab let (20 sources) Dopamine-2 Receptor Antagonist Start: 06-19-2024 End: 11-28-2024 metoprolol tartrate 25 mg or al tablet (20 sources) beta-Adrenergic Elli Start: 11-21-2023 End: 02-19-2024 Start: 11-21-2023 End: 02-19-2024 Start: 10-26-2020 End: 10-05-2023 Start: 10-26-2020 End: 10-05-2023 Start: 06-14-2020 End: 10-26-2020 miSOPROStol 0.1 mg oral tabl et (14 sources) Prostaglandin E1 Analog Start: 05-19-2025 End: 06-09-2025 naloxegol 25 mg oral tablet (19 sources) Opioid Antagonist Start: 04-18-2025 End: 06-09-2025 oxyCODONE hydrochloride 10 m g oral tablet (20 sources) Opioid Agonist Start: 06-09-2025 End: 08-12-2025 Start: 05-19-2025 End: 06-03-2025 Start: 10-05-2023 End: [...] End: 10-05-2023 plecanatide 3 mg oral tablet (20 sources) Start: 06-19-2024 End: 11-28-2024 predniSONE 20 [...] 09, 2021 12:00am July 27, 2021 9:18am telmisartan 20 mg oral table t (3 sources) Angiotensin 2 Receptor Elli Start: 08-05-2025 End: 08-06-2025 tiZANidine 4 mg oral tablet (20 sources) [...] failure syndrome; Translations: [Acute kidney failure, unspecified] Onset: 5 11-15-2023 Episodic Acute myocardial infarction (20 sources) [...] Translations: [Palpitations] 08-11-2021 Episodic Chronic kidney disease (3 sources) Chronic renal insufficiency; Translations: [Chronic kidney disease, unspecified] 08-01-2025 Chronic Chronic obstructive pulmonary disease and bronchiectasis (20 sources) Pulmonary emphysema; Translations: [Emphysema, unspecified] Onset: 4 01-21-2025 Chronic Coagulation and hemorrhagic disorders (4 sources) Thrombocytopenic disorder; Translations: [Thrombocytopenia, unspecified] 08-01-2025 Chronic Conditions associated with dizziness or vertigo (20 sources) Dizziness; Translations: [Dizziness and giddiness] 11-26-2023 Episodic Congestive heart failure; nonhypertensive (20 sources) Congestive heart failure; Translations: [Heart failure, unspecified] Onset: 5 06-03-2025 Chronic Coronary atherosclerosis and other heart disease (20 sources) Non-obstructive atherosclerosis of coronary artery; Translations: [Atherosclerotic heart disease of [place] coronary artery without angina pectoris] Onset: Chronic [...] sources) Fall; Translations: [Unspecified fall, initial encounter] Onset: 5 01-18-2024 Episodic Esophageal disorders (1 source) Gastroesophageal reflux disease; Translations: [Gastro-esophageal reflux disease without esophagitis] Onset: 6 Resolved: 6 01-20-2016 Chronic Essential hypertension (20 sources) Essential hypertension; Translations: [Essential (primary) hypertension] Onset: Chronic Fluid and electrolyte disorders (20 sources) Acute hyponatremia; Translations: [Hypo-osmolality and hyponatremia] Onset: 5 11-15-2023 Episodic Genitourinary symptoms and ill-defined conditions (20 sources) Dysuria; Translations: [Dysuria] 03-31-2023 Episodic Headache; including migraine (20 sources) Migraine; Translations: [Migraine, unspecified, not intractable, without status migrainosus] Onset: 5 09-11-2018 Chronic Headache; including migraine (5 sources) Acute headache; Translations: [Acute headache] 07-23-2025 Episodic Headache; including migraine (1 source) Headache; including migraine; Translations: [Headache, unspecified] Onset: Heart valve disorders (20 sources) Mitral valve [...] Onset: 5 02-17-2022 Chronic Nausea and vomiting (20 sources) Nausea and vomiting; Translations: [Nausea with [...] Long-term current use of anticoagulant; 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] 01-18-2024 Episodic Other [...] foot] 03-16-2023 Episodic Other connective tissue disease (4 sources) Pain of left calf; Translations: [Pain in left lower leg] 12-02-2022 Episodic Other diseases of kidney and ureters (3 sources) Acute renal insufficiency; Translations: [Disorder of kidney and ureter, unspecified] 08-06-2025 Episodic Other diseases of kidney and ureters (1 source) Chronic renal insufficiency; Translations: [Disorder of kidney and ureter, unspecified] 08-09-2025 Episodic Other eye disorders (20 sources) Pain [...] injuries and conditions due to external causes (4 sources) Injury of head; Translations: [Unspecified injury of head, initial encounter] 08-13-2025 Episodic Other injuries and conditions due to external causes (1 source) Unspecified injury of head, initial encounter; Translations: [Unspecified injury of head, initial encounter] Onset: Episodic Other lower respiratory disease (20 [...] leg] 10-22-2023 Episodic Other upper respiratory disease (20 sources) Acute bronchospasm; Translations: [Acute bronchospasm] 12-25-2024 [...] other disease] 12-24-2024 Episodic Residual codes; unclassified (4 sources) Altered mental status; Translations: [Altered mental status, unspecified] 08-13-2025 Episodic Residual codes; unclassified (1 source) Altered mental status, unspecified; Translations: [Altered mental status, unspecified] Onset: 5 Episodic Residual codes; unclassified (1 source) Localized edema; Translations: [Localized edema] Onset: 5 Episodic Spondylosis; intervertebral disc disorders; [...] on above: LDCT due 10/13 Substance-related disorders (18 sources) Continuous opioid dependence; Translations: [Opioid use, unspecified, uncomplicated] 04-18-2025 Episodic Superficial injury; contusion (20 sources) Abrasion of cornea of right eye; Translations: [Injury of conjunctiva and corneal abrasion without foreign body, right eye, initial encounter] Onset: 5 02-25-2022 Episodic Thyroid disorders (14 sources) Non-toxic uninodular goiter; Translations: [Nontoxic single thyroid nodule] Onset: 5 05-29-2024 Chronic Unclassified (3 sources) Exacerbation of multiple sclerosis; Translations: [Exacerbation of multiple sclerosis] 02-26-2022 Chronic Unclassified (1 source) Unknown / UNK(Unknown) [...] Translations: [Cardiac murmur, unspecified] Onset: 01-19-2025 Episodic Nutritional deficiencies (3 sources) Deficiency of multiple nutrient elements; Translations: [Deficiency of multiple nutrient elements] Onset: 03-04-2025 03-04-2025 Episodic Other and unspecified benign neoplasm (1 [...] [Sciatica, left side] Onset: 01-28-2025 02-22-2022 Episodic Viral infection (15 sources) Herpes zoster; Translations: [Zoster without complications] Onset: 05-19-2025 05-19-2025 Episodic Results Test Name Value Interpretation Reference Range Facility CREATININE FINGERSTICKon CREATININE WB < 1.0 Normal 0.55-1.02 [facility] Comment on above: Performed By: #### L 9100.0200 ####[facility] [address] [place], [address] EGFR WB > 60.0000 Normal >60 [facility] Comment on above: Performed By: #### L 9100.0200 ####[facility] [address] [place], [address] CTA Neck W/WO Contraston CTA Neck W/WO Contrast Normal [facility] EGFROrdered By: Tye Barnett on 09-21-2025 GFR/1.73 sq M.predicted among non-blacks MDRD (S/P/Bld) [Vol rate/Area] mL/min/{1.73_m2} >60 [facility] Brain/Head without Contrasto n 09-19-2025 Brain/Head without Contrast Normal [facility] Emergency Department Summary on 09-19-2025 Emergency Department Summary Normal [facility] Spine Cervical without Contr ason 09-19-2025 Spine Cervical without Contras Normal [facility] HIP, UNI W/ Pelvis 2-3 Views on 09-18-2025 HIP, UNI W/ Pelvis 2-3 Views Normal [facility] 12 Lead EKGon 08-12-2025 12 Lead EKG Normal [facility] Anion gap in Serum or Plasma Ordered By: Eva Mortensen on 08-12-2025 Anion gap [Moles/Vol] 12 mmol/L 5-15 [facility] BUN/creatinine ratioOrdered By: Eva Mortensen on 08-12-2025 Urea nitrogen/Creatinine [Mass ratio] 21.3 mg/mg High - [facility] Basic Metabolic Profile (BMP )on 08-12-2025 BUN/CRE 21.3 RATIO High 09-07 [facility] Comment on above: Performed By: #### L 500.2500 ####[facility] [address] [place], [address] Calcium [Mass/Vol] 9.6 mg/dL Normal 7.6-11.0 [facility] Comment on above: Performed By: #### L 500.2500 ####[facility] [address] [place], [address] Chloride [Moles/Vol] 104 mmol/L Normal 98-108 [facility] Comment on above: Performed By: #### L 500.2500 ####[facility] [address] [place], [address] CO2 [Moles/Vol] 21.1 mmol/L Normal 21.0-32.0 [facility] Comment on above: Performed By: #### L 500.2500 ####[facility] [address] [place], [address] Creatinine [Mass/Vol] 1.06 mg/dL Normal 0.70-1.20 [facility] Comment on above: Performed By: #### L 500.2500 ####[facility] [address] [place], [address] ECRCL 38.42 ml/min Low 50-250 [facility] Comment on above: Performed By: #### L 500.2500 ####[facility] [address] [place], [address] GAP 12 Normal 5-15 [facility] Comment on above: Performed By: #### L 500.2500 ####[facility] [address] [place], [address] GFR/1.73 sq M.predicted among non-blacks MDRD (S/P/Bld) [Vol rate/Area] 56 mL/min/{1.73_m2} Low >60 [facility] Comment on above: Result Comment: mL/m in/1.73m2 CKD-EPI Creatinine Equation (2020) Performed By: #### L 500.2500 ####[facility] [address] [place], [address] Glucose [Mass/Vol] 107 mg/dL High 70-99 [facility] Comment on above: Performed By: #### L 500.2500 ####[facility] [address] [place], [address] Potassium [Moles/Vol] 4.3 mmol/L Normal 3.3-5.1 [facility] Comment on above: Performed By: #### L 500.2500 ####[facility] [address] [place], [address] Sodium [Moles/Vol] 137 mmol/L Normal 133-145 [facility] Comment on above: Performed By: #### L 500.2500 ####[facility] [address] [place], [address] Urea nitrogen [Mass/Vol] 23 mg/dL High 4-19 [facility] Comment on above: Performed By: #### L 500.2500 ####[facility] [address] [place], [address] Carbon dioxide, total [Moles /volume] in Central venous bloodOrdered By: Eva Mortensen on 08-12-2025 CO2 [Moles/Vol] 21.1 mmol/L 21.0-32.0 [facility] Chloride assayOrdered By: Bethany Mortensen on 08-12-2025 Chloride [Moles/Vol] 104 mmol/L 98-108 [facility] Electrocardiogram reportOrde red By: Bhavik Smiley on 08-12-2025 EKG study [facility] Other Phone: Glomerular filtration rate ( GFR) estimation/1.73 sq m using serum, plasma, or whole bOrdered By: Eva Mortensen on 08-12-2025 GFR/1.73 sq M.predicted among non-blacks MDRD (S/P/Bld) [Vol rate/Area] 56 mL/min/{1.73_m2} Low >60 [facility] L501.4021on 08-12-2025 Trop T High Sen 23 ng/L High <=14 [facility] Comment on above: Performed By: #### L 501.4021 ####[facility] [address] [place], [place], [address] Potassium measurement (mass/ volume)Ordered By: Eva Mortensen on 08-12-2025 Potassium (Unsp spec) [Mass/Vol] 4.3 mmol/L 3.3-5.1 [facility] Serum creatinine measurement (mass/volume)Ordered By: Eva Mortensen on 08-12-2025 Creatinine [Mass/Vol] 1.06 mg/dL 0.70-1.20 [facility] Serum glucose measurement (m ass/volume)Ordered By: Eva Mortensen on 08-12-2025 Glucose [Mass/Vol] 107 mg/dL High 70-99 [facility] Serum or plasma calcium stefania urement (mass/volume)Ordered By: Eva Mortensen on 08-12-2025 Calcium [Mass/Vol] 9.6 mg/dL 7.6-11.0 [facility] Serum or plasma urea nitroge n measurement (mass/volume)Ordered By: Eva Mortensen on 08-12-2025 Urea nitrogen [Mass/Vol] 23 mg/dL High 4-19 [facility] Sodium levelOrdered By: Lina Mortensen on 08-12-2025 Sodium [Moles/Vol] 137 mmol/L 133-145 [facility] Troponin T HS 2 HRon 025 Trop T High Sen 20 ng/L High <=14 [facility] Comment on above: Performed By: #### L 499.0042 ####[facility] [address] [place], [place], [address] Troponin T HS 4 HRon 025 Trop T High Sen 20 ng/L High <=14 [facility] Comment on above: Performed By: #### L 499.0043 ####[facility] [address] [place], [place], [address] Troponin T.cardiac [Mass/vol ume] in Serum or Plasma by High sensitivity methodOrdered By: Roman Hewitt on 08-12-2025 Troponin T.cardiac High sensitivity method [Mass/Vol] 20 ng/L High <14 [facility] Troponin T.cardiac High sensitivity method [Mass/Vol] 20 ng/L High <14 [facility] Troponin T.cardiac High sensitivity method [Mass/Vol] 23 ng/L High <14 [facility] Absolute lymphocyte countOrd ered By: Eva Mortensen on 08-11-2025 Lymphocytes Auto (Unsp spec) [#/Vol] 0.74 10*3/uL Low 0.83-4.51 [facility] Automated lymphocyte count a s percentage of total leukocytesOrdered By: Eva Mortensen on 08-11-2025 Lymphocytes/100 WBC Auto (Unsp spec) 11.9 % Low 19-41 [facility] Basophil percentageOrdered B y: Eva Mortensen on 08-11-2025 Basophils/100 WBC (Bld) 0.6 % 0-1 [facility] Bilirubin, totalOrdered By: Eva Mortensen on 08-11-2025 Bilirubin [Mass/Vol] 0.41 mg/dL 0.00-1.30 [facility] Brain W/WO Contraston 2024 Brain W/WO Contrast Normal [facility] CBC W/Diff, Automatedon 07-21 Absolute Lymph 0.74 X10 3/uL Low 0.83-4.51 [facility] Comment on above: Performed By: #### L 501.2300, L501.5200, L500.4050, L100.0100 ####[facility] [address] [place], [address] Absolute Neut 4.5 X10 3/uL Normal 2.0-7.7 [facility] Comment on above: Performed By: #### L 501.2300, L501.5200, L500.4050, L100.0100 ####[facility] [address] [place], [address] Basophils/100 WBC (Bld) 0.6 % Normal 0-1 [facility] Comment on above: Performed By: #### L 501.2300, L501.5200, L500.4050, L100.0100 ####[facility] [address] [place], [address] Eosinophils/100 WBC (Bld) 4.8 % Normal 0-5 [facility] Comment on above: Performed By: #### L 501.2300, L501.5200, L500.4050, L100.0100 ####[facility] [address] [place], [address] Erythrocyte distribution width (RBC) [Ratio] 17.5 % High 11.6-14.6 [facility] Comment on above: Performed By: #### L 501.2300, L501.5200, L500.4050, L100.0100 ####[facility] [address] [place], [address] Hematocrit (Bld) [Volume fraction] 34.4 % Low 37-47 [facility] Comment on above: Performed By: #### L 501.2300, L501.5200, L500.4050, L100.0100 ####[facility] [address] [place], [address] Hemoglobin (Bld) [Mass/Vol] 11.0 g/dL Low 12.0-15.0 [facility] Comment on above: Performed By: #### L 501.2300, L501.5200, L500.4050, L100.0100 ####[facility] [address] [place], [address] IG% 0.500 Normal 0.0-0.9 [facility] Comment on above: Result Comment: IG% - Immature Granulocytes (promyelocytes, myelocytes andmetamyelocytes) > 1% indicates that a LEFT SHIFT is Present. Performed By: #### L 501.2300, L501.5200, L500.4050, L100.0100 ####[facility] [address] [place], [address] Lymphocytes/100 WBC (Bld) 11.9 % Low 19-41 [facility] Comment on above: Performed By: #### L 501.2300, L501.5200, L500.4050, L100.0100 ####[facility] [address] [place], [address] MCH (RBC) [Entitic mass] 27.9 pg Normal 27.0-32.0 [facility] Comment on above: Performed By: #### L 501.2300, L501.5200, L500.4050, L100.0100 ####[facility] [address] [place], [address] MCHC (RBC) [Mass/Vol] 32.0 g/dL Normal 32-36 [facility] Comment on above: Performed By: #### L 501.2300, L501.5200, L500.4050, L100.0100 ####[facility] [address] [place], [address] MCV (RBC) [Entitic vol] 87.3 fL Normal 81-99 [facility] Comment on above: Performed By: #### L 501.2300, L501.5200, L500.4050, L100.0100 ####[facility] [address] [place], [address] Monocytes/100 WBC (Bld) 9.5 % Normal 0-10 [facility] Comment on above: Performed By: #### L 501.2300, L501.5200, L500.4050, L100.0100 ####[facility] [address] [place], [address] Neutrophils/100 WBC (Bld) 72.7 % High 47-70 [facility] Comment on above: Performed By: #### L 501.2300, L501.5200, L500.4050, L100.0100 ####[facility] [address] [place], [address] Nucleated RBC (Bld) [#/Vol] 0 10*3/uL Normal 0-5 [facility] Comment on above: Performed By: #### L 501.2300, L501.5200, L500.4050, L100.0100 ####[facility] [address] [place], [address] Platelet mean volume (Bld) [Entitic vol] 9.9 fL Normal 6.2-12.0 [facility] Comment on above: Performed By: #### L 501.2300, L501.5200, L500.4050, L100.0100 ####[facility] [address] [place], [address] Platelets (Bld) [#/Vol] 120 10*3/uL Low 150-450 [facility] Comment on above: Performed By: #### L 501.2300, L501.5200, L500.4050, L100.0100 ####[facility] [address] [place], [address] RBC (Bld) [#/Vol] 3.94 10*6/uL Low 4.2-5.4 [facility] Comment on above: Performed By: #### L 501.2300, L501.5200, L500.4050, L100.0100 ####[facility] [address] [place], [address] RDW SD 55.8 fl High 35.1-43.9 [facility] Comment on above: Performed By: #### L 501.2300, L501.5200, L500.4050, L100.0100 ####[facility] [address] [place], [address] WBC (Bld) [#/Vol] 6.2 10*3/uL Normal 4.4-11.0 [facility] Comment on above: Performed By: #### L 501.2300, L501.5200, L500.4050, L100.0100 ####[facility] [address] [place], [address] Comprehensive Metabolic Prof ilon 08-11-2025 Albumin [Mass/Vol] 3.9 g/dL Normal 3.4-4.8 [facility] Comment on above: Performed By: #### L 501.2300, L501.5200, L500.4050, L100.0100 ####[facility] [address] [place], [address] Albumin/Globulin [Mass ratio] 1.6 {ratio} Normal 0.9-2.4 [facility] Comment on above: Performed By: #### L 501.2300, L501.5200, L500.4050, L100.0100 ####[facility] [address] [place], [address] ALK PHOS 95 U/L Normal 35-104 [facility] Comment on above: Performed By: #### L 501.2300, L501.5200, L500.4050, L100.0100 ####[facility] [address] [place], [address] ALT [Catalytic activity/Vol] 16 U/L Normal <=34 [facility] Comment on above: Performed By: #### L 501.2300, L501.5200, L500.4050, L100.0100 ####[facility] [address] [place], [address] AST [Catalytic activity/Vol] 20 U/L Normal <=31 [facility] Comment on above: Performed By: #### L 501.2300, L501.5200, L500.4050, L100.0100 ####[facility] [address] [place], [address] Bilirubin [Mass/Vol] 0.41 mg/dL Normal 0.00-1.30 [facility] Comment on above: Performed By: #### L 501.2300, L501.5200, L500.4050, L100.0100 ####[facility] [address] [place], [address] BUN/CRE 25.1 RATIO High 10-20 [facility] Comment on above: Performed By: #### L 501.2300, L501.5200, L500.4050, L100.0100 ####[facility] [address] [place], [address] Calcium [Mass/Vol] 9.7 mg/dL Normal 7.6-11.0 [facility] Comment on above: Performed By: #### L 501.2300, L501.5200, L500.4050, L100.0100 ####[facility] [address] [place], [address] Chloride [Moles/Vol] 103 mmol/L Normal 98-108 [facility] Comment on above: Performed By: #### L 501.2300, L501.5200, L500.4050, L100.0100 ####[facility] [address] [place], [address] CO2 [Moles/Vol] 24.1 mmol/L Normal 21.0-32.0 [facility] Comment on above: Performed By: #### L 501.2300, L501.5200, L500.4050, L100.0100 ####[facility] [address] [place], [address] Creatinine [Mass/Vol] 1.32 mg/dL High 0.70-1.20 [facility] Comment on above: Performed By: #### L 501.2300, L501.5200, L500.4050, L100.0100 ####[facility] [address] [place], [address] ECRCL 32.09 ml/min Low 50-250 [facility] Comment on above: Performed By: #### L 501.2300, L501.5200, L500.4050, L100.0100 ####[facility] [address] [place], [address] GAP 12 Normal 5-15 [facility] Comment on above: Performed By: #### L 501.2300, L501.5200, L500.4050, L100.0100 ####[facility] [address] [place], [address] GFR/1.73 sq M.predicted among non-blacks MDRD (S/P/Bld) [Vol rate/Area] 43 mL/min/{1.73_m2} Low >60 [facility] Comment on above: Result Comment: mL/m in/1.73m2 CKD-EPI Creatinine Equation (2020) Performed By: #### L 501.2300, L501.5200, L500.4050, L100.0100 ####[facility] [address] [place], [address] Globulin (S) [Mass/Vol] 2.4 g/dL Normal 2.2-4.2 [facility] Comment on above: Performed By: #### L 501.2300, L501.5200, L500.4050, L100.0100 ####[facility] [address] [place], [address] Glucose [Mass/Vol] 109 mg/dL High 70-99 [facility] Comment on above: Performed By: #### L 501.2300, L501.5200, L500.4050, L100.0100 ####[facility] [address] [place], [address] Potassium [Moles/Vol] 4.3 mmol/L Normal 3.3-5.1 [facility] Comment on above: Performed By: #### L 501.2300, L501.5200, L500.4050, L100.0100 ####[facility] [address] [place], [address] Sodium [Moles/Vol] 139 mmol/L Normal 133-145 [facility] Comment on above: Performed By: #### L 501.2300, L501.5200, L500.4050, L100.0100 ####[facility] [address] [place], [address] T PROT 6.3 g/dL Normal 5.9-8.4 [facility] Comment on above: Performed By: #### L 501.2300, L501.5200, L500.4050, L100.0100 ####[facility] [address] [place], [address] Urea nitrogen [Mass/Vol] 33 mg/dL High 4-19 [facility] Comment on above: Performed By: #### L 501.2300, L501.5200, L500.4050, L100.0100 ####[facility] [address] [place], [address] Eosinophil percentageOrdered By: Eva Mortensen on 08-11-2025 Eosinophils/100 WBC (Bld) 4.8 % 0-5 [facility] Erythrocyte distribution wid th ratioOrdered By: Eva Mortensen on 08-11-2025 Erythrocyte distribution width (RBC) [Ratio] 17.5 % High 11.6-14.6 [facility] Erythrocyte distribution wid th standard deviationOrdered By: Eva Mortensen on 08-11-2025 Erythrocyte distribution width (RBC) [Ratio] 55.8 fl High 35.1-43.9 [facility] Hematocrit Auto (Bld) [Volum e fraction]Ordered By: Eva Mortensen on 08-11-2025 Hematocrit (Bld) [Volume fraction] 34.4 % Low 37-47 [facility] Hemoglobin measurementOrdere d By: Eva Mortensen on 08-11-2025 Hemoglobin (Bld) [Mass/Vol] 11.0 g/dL Low 12.0-15.0 [facility] Immature granulocytes/100 WB C Auto (Bld)Ordered By: Eva Mortensen on 08-11-2025 Immature granulocytes/100 WBC (Bld) 0.500 % 0.0-0.9 [facility] MCV (mean corpuscular volume ) determinationOrdered By: Eva Mortensen on 08-11-2025 MCV (RBC) [Entitic vol] 87.3 fL 81-99 [facility] Magnesiumon 08-11-2025 Magnesium [Mass/Vol] 2.1 mg/dL Normal 1.5-2.2 [facility] Comment on above: Performed By: #### L 501.2300, L501.5200, L500.4050, L100.0100 ####[facility] [address] [facility] [place], [address] Magnesium measurement (mass/ volume)Ordered By: Eva Mortensen on 08-11-2025 Magnesium (Unsp spec) [Mass/Vol] 2.1 mg/dL 1.5-2.2 [facility] Magnetic resonance imaging r eportOrdered By: Shireen Tobin on 08-11-2025 Study report [facility] Mean corpuscular hemoglobin (MCH) determinationOrdered By: Eva Mortensen on 08-11-2025 MCH (RBC) [Entitic mass] 27.9 pg 27.0-32.0 [facility] Monocyte percentageOrdered B y: Eva Mortensen on 08-11-2025 Monocytes/100 WBC (Bld) 9.5 % 0-10 [facility] Neutrophil percentageOrdered By: Eva Mortensen on 08-11-2025 Neutrophils/100 WBC (Bld) 72.7 % High 47-70 [facility] No Panel InformationOrdered By: Eva Mortensen on 08-11-2025 20 U/L <32 [facility] Phosphoruson 08-11-2025 Phosphate [Mass/Vol] 3.6 mg/dL Normal 2.7-4.5 [facility] Comment on above: Performed By: #### L 501.2300, L501.5200, L500.4050, L100.0100 ####[facility] [address] [place], [address] Platelet countOrdered By: Bethany Mortensen on 08-11-2025 Platelets (Bld) [#/Vol] 120 10*3/uL Low 150-450 [facility] RBC Auto (Bld) [#/Vol]Ordere d By: Eva Mortensen on 08-11-2025 RBC (Bld) [#/Vol] 3.94 10*6/uL Low 4.2-5.4 [facility] Serum globulin measurementOr dered By: Eva Mortensen on 08-11-2025 Globulin (S) [Mass/Vol] 2.4 g/dL 2.2-4.2 [facility] Serum or plasma alanine pizarro otransferase (ALT) measurementOrdered By: Eva Mortensen on 08-11-2025 ALT [Catalytic activity/Vol] 16 U/L <35 [facility] Serum or plasma albumin stefania urement (mass/volume)Ordered By: Eva Mortensen on 08-11-2025 Albumin [Mass/Vol] 3.9 g/dL 3.4-4.8 [facility] Serum or plasma albumin/glob ulin mass ratioOrdered By: Eva Mortensen on 08-11-2025 Albumin/Globulin [Mass ratio] 1.6 {ratio} 0.9-2.4 [facility] Serum or plasma alkaline anthony sphatase measurementOrdered By: Eva Mortensen on 08-11-2025 ALP [Catalytic activity/Vol] 95 U/L 35-104 [facility] Total proteinOrdered By: Sadny Mortensen on 08-11-2025 Protein [Mass/Vol] 6.3 g/dL 5.9-8.4 [facility] White blood cell (WBC) count Ordered By: Eva Mortensen on 08-11-2025 WBC (Bld) [#/Vol] 6.2 10*3/uL 4.4-11.0 [facility] Basic Metabolic Profile (BMP )on 08-10-2025 BUN/CRE 31.7 RATIO High 10-20 [facility] Comment on above: Performed By: #### L 500.2500, L100.0100 ####[facility] [address] [place], [address] Calcium [Mass/Vol] 9.3 mg/dL Normal 7.6-11.0 [facility] Comment on above: Performed By: #### L 500.2500, L100.0100 ####[facility] [address] [place], [address] Chloride [Moles/Vol] 104 mmol/L Normal 98-108 [facility] Comment on above: Performed By: #### L 500.2500, L100.0100 ####[facility] [address] [place], [address] CO2 [Moles/Vol] 23.0 mmol/L Normal 21.0-32.0 [facility] Comment on above: Performed By: #### L 500.2500, L100.0100 ####[facility] [address] [place], [address] Creatinine [Mass/Vol] 1.87 mg/dL High 0.70-1.20 [facility] Comment on above: Performed By: #### L 500.2500, L100.0100 ####[facility] [address] [place], [address] ECRCL 23.74 ml/min Low 50-250 [facility] Comment on above: Performed By: #### L 500.2500, L100.0100 ####[facility] [address] [place], [address] GAP 12 Normal 5-15 [facility] Comment on above: Performed By: #### L 500.2500, L100.0100 ####[facility] [address] [place], [address] GFR/1.73 sq M.predicted among non-blacks MDRD (S/P/Bld) [Vol rate/Area] 28 mL/min/{1.73_m2} Low >60 [facility] Comment on above: Result Comment: mL/m in/1.73m2 CKD-EPI Creatinine Equation (2020) Performed By: #### L 500.2500, L100.0100 ####[facility] [address] [place], [address] Glucose [Mass/Vol] 100 mg/dL High 70-99 [facility] Comment on above: Performed By: #### L 500.2500, L100.0100 ####[facility] [address] [place], [address] Potassium [Moles/Vol] 4.0 mmol/L Normal 3.3-5.1 [facility] Comment on above: Performed By: #### L 500.2500, L100.0100 ####[facility] [address] [place], [address] Sodium [Moles/Vol] 139 mmol/L Normal 133-145 [facility] Comment on above: Performed By: #### L 500.2500, L100.0100 ####[facility] [address] [place], [address] Urea nitrogen [Mass/Vol] 59 mg/dL High 4-19 [facility] Comment on above: Performed By: #### L 500.2500, L100.0100 ####[facility] [address] [place], [address] CBC W/Diff, Automatedon -2 Absolute Lymph 0.66 X10 3/uL Low 0.83-4.51 [facility] Comment on above: Performed By: #### L 500.2500, L100.0100 ####[facility] [address] [place], [address] Absolute Neut 6.4 X10 3/uL Normal 2.0-7.7 [facility] Comment on above: Performed By: #### L 500.2500, L100.0100 ####[facility] [address] [place], [address] Basophils/100 WBC (Bld) 0.5 % Normal 0-1 [facility] Comment on above: Performed By: #### L 500.2500, L100.0100 ####[facility] [address] [place], [address] Eosinophils/100 WBC (Bld) 3.9 % Normal 0-5 [facility] Comment on above: Performed By: #### L 500.2500, L100.0100 ####[facility] [address] [place], [address] Erythrocyte distribution width (RBC) [Ratio] 18.0 % High 11.6-14.6 [facility] Comment on above: Performed By: #### L 500.2500, L100.0100 ####[facility] [address] [place], [address] Hematocrit (Bld) [Volume fraction] 33.0 % Low 37-47 [facility] Comment on above: Performed By: #### L 500.2500, L100.0100 ####[facility] [address] [place], [address] Hemoglobin (Bld) [Mass/Vol] 10.7 g/dL Low 12.0-15.0 [facility] Comment on above: Performed By: #### L 500.2500, L100.0100 ####[facility] [address] [place], [address] IG% 0.400 Normal 0.0-0.9 [facility] Comment on above: Result Comment: IG% - Immature Granulocytes (promyelocytes, myelocytes andmetamyelocytes) > 1% indicates that a LEFT SHIFT is Present. Performed By: #### L 500.2500, L100.0100 ####[facility] [address] [place], [address] Lymphocytes/100 WBC (Bld) 8.2 % Low 19-41 [facility] Comment on above: Performed By: #### L 500.2500, L100.0100 ####[facility] [address] [place], [address] MCH (RBC) [Entitic mass] 28.2 pg Normal 27.0-32.0 [facility] Comment on above: Performed By: #### L 500.2500, L100.0100 ####[facility] [address] [place], [address] MCHC (RBC) [Mass/Vol] 32.4 g/dL Normal 32-36 [facility] Comment on above: Performed By: #### L 500.2500, L100.0100 ####[facility] [address] [place], [address] MCV (RBC) [Entitic vol] 86.8 fL Normal 81-99 [facility] Comment on above: Performed By: #### L 500.2500, L100.0100 ####[facility] [address] [place], [address] Monocytes/100 WBC (Bld) 7.7 % Normal 0-10 [facility] Comment on above: Performed By: #### L 500.2500, L100.0100 ####[facility] [address] [place], [address] Neutrophils/100 WBC (Bld) 79.3 % High 47-70 [facility] Comment on above: Performed By: #### L 500.2500, L100.0100 ####[facility] [address] [place], [address] Nucleated RBC (Bld) [#/Vol] 0 10*3/uL Normal 0-5 [facility] Comment on above: Performed By: #### L 500.2500, L100.0100 ####[facility] [address] [place], [address] Platelet mean volume (Bld) [Entitic vol] 10.2 fL Normal 6.2-12.0 [facility] Comment on above: Performed By: #### L 500.2500, L100.0100 ####[facility] [address] [place], [address] Platelets (Bld) [#/Vol] 100 10*3/uL Low 150-450 [facility] Comment on above: Performed By: #### L 500.2500, L100.0100 ####[facility] [address] [place], [address] RBC (Bld) [#/Vol] 3.80 10*6/uL Low 4.2-5.4 [facility] Comment on above: Performed By: #### L 500.2500, L100.0100 ####[facility] [address] [place], [address] RDW SD 57.1 fl High 35.1-43.9 [facility] Comment on above: Performed By: #### L 500.2500, L100.0100 ####[facility] [address] [place], [address] WBC (Bld) [#/Vol] 8.1 10*3/uL Normal 4.4-11.0 [facility] Comment on above: Performed By: #### L 500.2500, L100.0100 ####[facility] [address] [place], [address] Kidney and Bladderon 025 Kidney and Bladder Normal [facility] Urine Cultureon 08-10-2025 URC Culture exhibits no growth. Normal [facility] Comment on above: Performed By: #### M 100.2200 ####[facility] [address] [place], [address] Abdomen/Pelvis without Conto n 08-09-2025 Abdomen/Pelvis without Cont Normal [facility] Brain/Head without Contrasto n 08-09-2025 Brain/Head without Contrast Normal [facility] CBC W/Diff, Automatedon - Absolute Lymph 0.89 X10 3/uL Normal 0.83-4.51 [facility] Comment on above: Performed By: #### L 500.4050, L100.0100 ####[facility] [address] [place], [address] Absolute Neut 3.7 X10 3/uL Normal 2.0-7.7 [facility] Comment on above: Performed By: #### L 500.4050, L100.0100 ####[facility] [address] [place], [address] Basophils/100 WBC (Bld) 0.5 % Normal 0-1 [facility] Comment on above: Performed By: #### L 500.4050, L100.0100 ####[facility] [address] [place], [address] Eosinophils/100 WBC (Bld) 6.1 % High 0-5 [facility] Comment on above: Performed By: #### L 500.4050, L100.0100 ####[facility] [address] [place], [address] Erythrocyte distribution width (RBC) [Ratio] 17.8 % High 11.6-14.6 [facility] Comment on above: Performed By: #### L 500.4050, L100.0100 ####[facility] [address] [place], [address] Hematocrit (Bld) [Volume fraction] 32.1 % Low 37-47 [facility] Comment on above: Performed By: #### L 500.4050, L100.0100 ####[facility] [address] [place], [address] Hemoglobin (Bld) [Mass/Vol] 10.7 g/dL Low 12.0-15.0 [facility] Comment on above: Performed By: #### L 500.4050, L100.0100 ####[facility] [address] [place], [address] IG% 0.200 Normal 0.0-0.9 [facility] Comment on above: Result Comment: IG% - Immature Granulocytes (promyelocytes, myelocytes andmetamyelocytes) > 1% indicates that a LEFT SHIFT is Present. Performed By: #### L 500.4050, L100.0100 ####[facility] [address] [place], [address] Lymphocytes/100 WBC (Bld) 16.0 % Low 19-41 [facility] Comment on above: Performed By: #### L 500.4050, L100.0100 ####[facility] [address] [place], [address] MCH (RBC) [Entitic mass] 28.5 pg Normal 27.0-32.0 [facility] Comment on above: Performed By: #### L 500.4050, L100.0100 ####[facility] [address] [place], [address] MCHC (RBC) [Mass/Vol] 33.3 g/dL Normal 32-36 [facility] Comment on above: Performed By: #### L 500.4050, L100.0100 ####[facility] [address] [place], [address] MCV (RBC) [Entitic vol] 85.6 fL Normal 81-99 [facility] Comment on above: Performed By: #### L 500.4050, L100.0100 ####[facility] [address] [place], [address] Monocytes/100 WBC (Bld) 11.4 % High 0-10 [facility] Comment on above: Performed By: #### L 500.4050, L100.0100 ####[facility] [address] [place], [address] Neutrophils/100 WBC (Bld) 65.8 % Normal 47-70 [facility] Comment on above: Performed By: #### L 500.4050, L100.0100 ####[facility] [address] [place], [address] Nucleated RBC (Bld) [#/Vol] 0 10*3/uL Normal 0-5 [facility] Comment on above: Performed By: #### L 500.4050, L100.0100 ####[facility] [address] [place], [address] Platelet mean volume (Bld) [Entitic vol] 10.1 fL Normal 6.2-12.0 [facility] Comment on above: Performed By: #### L 500.4050, L100.0100 ####[facility] [address] [place], [address] Platelets (Bld) [#/Vol] 106 10*3/uL Low 150-450 [facility] Comment on above: Performed By: #### L 500.4050, L100.0100 ####[facility] [address] [place], [address] RBC (Bld) [#/Vol] 3.75 10*6/uL Low 4.2-5.4 [facility] Comment on above: Performed By: #### L 500.4050, L100.0100 ####[facility] [address] [place], [address] RDW SD 54.8 fl High 35.1-43.9 [facility] Comment on above: Performed By: #### L 500.4050, L100.0100 ####[facility] [address] [place], [address] WBC (Bld) [#/Vol] 5.6 10*3/uL Normal 4.4-11.0 [facility] Comment on above: Performed By: #### L 500.4050, L100.0100 ####[facility] [address] [place], [address] Comprehensive Met[facility] Prof [facility] 08-09-2025 Albumin [Mass/Vol] 3.8 g/dL Normal 3.4-4.8 [facility] Comment on above: Performed By: #### L 500.4050, L100.0100 ####[facility] [address] [place], [address] Albumin/Globulin [Mass ratio] 1.5 {ratio} Normal 0.9-2.4 [facility] Comment on above: Performed By: #### L 500.4050, L100.0100 ####[facility] [address] [place], [address] ALK PHOS 94 U/L Normal 35-104 [facility] Comment on above: Performed By: #### L 500.4050, L100.0100 ####[facility] [address] [place], [address] ALT [Catalytic activity/Vol] 20 U/L Normal <=34 [facility] Comment on above: Performed By: #### L 500.4050, L100.0100 ####[facility] [address] [place], [address] AST [Catalytic activity/Vol] 22 U/L Normal <=31 [facility] Comment on above: Performed By: #### L 500.4050, L100.0100 ####[facility] [address] [place], [address] Bilirubin [Mass/Vol] 0.37 mg/dL Normal 0.00-1.30 [facility] Comment on above: Performed By: #### L 500.4050, L100.0100 ####[facility] [address] [place], [address] BUN/CRE 19.7 RATIO Normal 10-20 [facility] Comment on above: Performed By: #### L 500.4050, L100.0100 ####[facility] [address] [place], [address] Calcium [Mass/Vol] 9.2 mg/dL Normal 7.6-11.0 [facility] Comment on above: Performed By: #### L 500.4050, L100.0100 ####[facility] [address] [place], [address] Chloride [Moles/Vol] 102 mmol/L Normal 98-108 [facility] Comment on above: Performed By: #### L 500.4050, L100.0100 ####[facility] [address] [place], [address] CO2 [Moles/Vol] 24.7 mmol/L Normal 21.0-32.0 [facility] Comment on above: Performed By: #### L 500.4050, L100.0100 ####[facility] [address] [place], [address] Creatinine [Mass/Vol] 3.95 mg/dL High 0.70-1.20 [facility] Comment on above: Performed By: #### L 500.4050, L100.0100 ####[facility] [address] [place], [address] ECRCL 9.86 ml/min Invalid Interpretation Code 50-250 [facility] Comment on above: Performed By: #### L 500.4050, L100.0100 ####[facility] [address] [place], [address] GAP 14 Normal 5-15 [facility] Comment on above: Performed By: #### L 500.4050, L100.0100 ####[facility] [address] [place], [address] GFR/1.73 sq M.predicted among non-blacks MDRD (S/P/Bld) [Vol rate/Area] 12 mL/min/{1.73_m2} Low >60 [facility] Comment on above: Result Comment: mL/m in/1.73m2 CKD-EPI Creatinine Equation (2020) Performed By: #### L 500.4050, L100.0100 ####[facility] [address] [place], [address] Globulin (S) [Mass/Vol] 2.5 g/dL Normal 2.2-4.2 [facility] Comment on above: Performed By: #### L 500.4050, L100.0100 ####[facility] [address] [place], [address] Glucose [Mass/Vol] 88 mg/dL Normal 70-99 [facility] Comment on above: Performed By: #### L 500.4050, L100.0100 ####[facility] [address] [place], [address] Potassium [Moles/Vol] 4.2 mmol/L Normal 3.3-5.1 [facility] Comment on above: Performed By: #### L 500.4050, L100.0100 ####[facility] [address] [place], [address] Sodium [Moles/Vol] 140 mmol/L Normal 133-145 [facility] Comment on above: Performed By: #### L 500.4050, L100.0100 ####[facility] [address] [place], [address] T PROT 6.3 g/dL Normal 5.9-8.4 [facility] Comment on above: Performed By: #### L 500.4050, L100.0100 ####[facility] [address] [place], [address] Urea nitrogen [Mass/Vol] 78 mg/dL High 4-19 [facility] Comment on above: Performed By: #### L 500.4050, L100.0100 ####[facility] [address] [place], [address] Creatinine, Urine (random)on 08-09-2025 UR CREAT 117.00 mg/dL Normal 28.00-217. 00 [facility] Comment on above: Performed By: #### L 501.5500, L501.1200 ####[facility] [address] [place], [address] L509.7001on 08-09-2025 Procalcitonin 0.10 ng/mL Normal <=0.10 [facility] Comment on above: Result Comment: Inte rpretation:<0.10-0.25 ng/mL: Antibiotic therapy discouraged. Bacterialinfection unlikely.0.25-0.50 ng/mL: Antibiotic therapy encouraged. Bacterialinfection possible.>0.50 ng/mL: Antibiotic therapy strongly encouraged.Suggestive of presence of bacterial infection.PCT should always be interpreted in the clinical context ofthe patient. Therefore, clinicians should use the PCTresults in conjunction with other laboratory findings andclinical signs of the patient. Performed By: #### L 509.7001 ####[facility] [address] [place], [address] Urine sodium measurement (mo les/volume)Ordered By: Sommer Resendiz on 08-09-2025 Sodium (U) [Moles/Vol] 27 mmol/L Normal Not Establ. [facility] Comment on above: Performed By: #### L 501.5500, L501.1200 ####[facility] [address] [place], [address] Activated partial thrombopla stin time (aPTT) in platelet poor plasma by coagulation aOrdered By: Yasmani Haynes on 08-08-2025 aPTT Coag (PPP) [Time] 30.6 s 24.1-36.2 [facility] Alcohol, Blood (Medical)-Ser umon 08-08-2025 SERUM ETOH < 10.1 Normal <=10.0 [facility] Comment on above: Result Comment: This test is for medical purposes only. The legaldefinition of intoxication varies according to local law. Performed By: #### L 505.5000, L501.3620, L500.3400, L501.5200, L501.9100, L500.2500, L503.5510, L100.0100, L300.3900, L300.4310 ####[facility] [address] [place], [place], [id number] Ammoniaon 08-08-2025 Ammonia (P) [Moles/Vol] 12.1 umol/L Normal 11-51 [facility] Comment on above: Performed By: #### L 505.5000, L501.3620, L500.3400, L501.5200, L501.9100, L500.2500, L503.5510, L100.0100, L300.3900, L300.4310 ####[facility] [address] [place], [address] Amphetamine detection with 1 000 ng/mL as cutoffOrdered By: Yasmani Haynes on 08-08-2025 Amphetamines Screen method >1000 ng/mL Ql (U) Negative < 200 ng/mL [facility] Basic Metabolic Profile (BMP )on 08-08-2025 BUN/CRE 20.5 RATIO High 09-07 [facility] Comment on above: Performed By: #### L 505.5000, L501.3620, L500.3400, L501.5200, L501.9100, L500.2500, L503.5510, L100.0100, L300.3900, L300.4310 ####[facility] [address] [place], [address] Calcium [Mass/Vol] 9.4 mg/dL Normal 7.6-11.0 [facility] Comment on above: Performed By: #### L 505.5000, L501.3620, L500.3400, L501.5200, L501.9100, L500.2500, L503.5510, L100.0100, L300.3900, L300.4310 ####[facility] [address] [place], [address] Chloride [Moles/Vol] 98 mmol/L Normal 98-108 [facility] Comment on above: Performed By: #### L 505.5000, L501.3620, L500.3400, L501.5200, L501.9100, L500.2500, L503.5510, L100.0100, L300.3900, L300.4310 ####[facility] [address] [place], [address] CO2 [Moles/Vol] 22.8 mmol/L Normal 21.0-32.0 [facility] Comment on above: Performed By: #### L 505.5000, L501.3620, L500.3400, L501.5200, L501.9100, L500.2500, L503.5510, L100.0100, L300.3900, L300.4310 ####[facility] [address] [place], [address] Creatinine [Mass/Vol] 3.90 mg/dL High 0.70-1.20 [facility] Comment on above: Performed By: #### L 505.5000, L501.3620, L500.3400, L501.5200, L501.9100, L500.2500, L503.5510, L100.0100, L300.3900, L300.4310 ####[facility] [address] [place], [place], [address] ECRCL 10.42 ml/min Low 50-250 [facility] Comment on above: Performed By: #### L 505.5000, L501.3620, L500.3400, L501.5200, L501.9100, L500.2500, L503.5510, L100.0100, L300.3900, L300.4310 ####[facility] [address] [place], [place], [id number] GAP 16 High 5-15 [facility] Comment on above: Performed By: #### L 505.5000, L501.3620, L500.3400, L501.5200, L501.9100, L500.2500, L503.5510, L100.0100, L300.3900, L300.4310 ####[facility] [address] [place], [address] GFR/1.73 sq M.predicted among non-blacks MDRD (S/P/Bld) [Vol rate/Area] 12 mL/min/{1.73_m2} Low >60 [facility] Comment on above: Result Comment: mL/m in/1.73m2 CKD-EPI Creatinine Equation (2020) Performed By: #### L 505.5000, L501.3620, L500.3400, L501.5200, L501.9100, L500.2500, L503.5510, L100.0100, L300.3900, L300.4310 ####[facility] [address] [place], [address] Glucose [Mass/Vol] 108 mg/dL High 70-99 [facility] Comment on above: Performed By: #### L 505.5000, L501.3620, L500.3400, L501.5200, L501.9100, L500.2500, L503.5510, L100.0100, L300.3900, L300.4310 ####[facility] [address] [place], [place], [id number] Potassium [Moles/Vol] 4.4 mmol/L Normal 3.3-5.1 [facility] Comment on above: Performed By: #### L 505.5000, L501.3620, L500.3400, L501.5200, L501.9100, L500.2500, L503.5510, L100.0100, L300.3900, L300.4310 ####[facility] [address] [place], [place], [id number] Sodium [Moles/Vol] 137 mmol/L Normal 133-145 [facility] Comment on above: Performed By: #### L 505.5000, L501.3620, L500.3400, L501.5200, L501.9100, L500.2500, L503.5510, L100.0100, L300.3900, L300.4310 ####[facility] [address] [place], [place], [id number] Urea nitrogen [Mass/Vol] 80 mg/dL High 4-19 [facility] Comment on above: Performed By: #### L 505.5000, L501.3620, L500.3400, L501.5200, L501.9100, L500.2500, L503.5510, L100.0100, L300.3900, L300.4310 ####[facility] [address] [place], [place], [id number] Bilirubin Test strip Ql (U)O rdered By: Yasmani Haynes on 08-08-2025 Bilirubin Ql (U) Negative Negative [facility] Bilirubin directOrdered By: Yasmani Haynes on 08-08-2025 Bilirubin.direct [Mass/Vol] 0.18 mg/dL 0.00-0.30 [facility] Brain/Head without Contrasto n 08-08-2025 Brain/Head without Contrast Normal [facility] CBC W/Diff, Automatedon 07-21 Absolute Lymph 0.78 X10 3/uL Low 0.83-4.51 [facility] Comment on above: Performed By: #### L 505.5000, L501.3620, L500.3400, L501.5200, L501.9100, L500.2500, L503.5510, L100.0100, L300.3900, L300.4310 ####[facility] [address] [place], [place], [id number] Absolute Neut 7.9 X10 3/uL High 2.0-7.7 [facility] Comment on above: Performed By: #### L 505.5000, L501.3620, L500.3400, L501.5200, L501.9100, L500.2500, L503.5510, L100.0100, L300.3900, L300.4310 ####[facility] [address] [place], [place], [phone] Basophils/100 WBC (Bld) 0.3 % Normal 0-1 [facility] Comment on above: Performed By: #### L 505.5000, L501.3620, L500.3400, L501.5200, L501.9100, L500.2500, L503.5510, L100.0100, L300.3900, L300.4310 ####[facility] [address] [place], [place], [phone] Eosinophils/100 WBC (Bld) 3.4 % Normal 0-5 [facility] Comment on above: Performed By: #### L 505.5000, L501.3620, L500.3400, L501.5200, L501.9100, L500.2500, L503.5510, L100.0100, L300.3900, L300.4310 ####[facility] [address] [place], [address] Erythrocyte distribution width (RBC) [Ratio] 17.9 % High 11.6-14.6 [facility] Comment on above: Performed By: #### L 505.5000, L501.3620, L500.3400, L501.5200, L501.9100, L500.2500, L503.5510, L100.0100, L300.3900, L300.4310 ####[facility] [address] [facility] [place], [address] Hematocrit (Bld) [Volume fraction] 36.3 % Low 37-47 [facility] Comment on above: Performed By: #### L 505.5000, L501.3620, L500.3400, L501.5200, L501.9100, L500.2500, L503.5510, L100.0100, L300.3900, L300.4310 ####[facility] [address] [facility] [place], [address] Hemoglobin (Bld) [Mass/Vol] 11.7 g/dL Low 12.0-15.0 [facility] Comment on above: Performed By: #### L 505.5000, L501.3620, L500.3400, L501.5200, L501.9100, L500.2500, L503.5510, L100.0100, L300.3900, L300.4310 ####[facility] [address] [place], [address] IG% 0.500 Normal 0.0-0.9 [facility] Comment on above: Result Comment: IG% - Immature Granulocytes (promyelocytes, myelocytes andmetamyelocytes) > 1% indicates that a LEFT SHIFT is Present. Performed By: #### L 505.5000, L501.3620, L500.3400, L501.5200, L501.9100, L500.2500, L503.5510, L100.0100, L300.3900, L300.4310 ####[facility] [address] [place], [address] Lymphocytes/100 WBC (Bld) 8.0 % Low 19-41 [facility] Comment on above: Performed By: #### L 505.5000, L501.3620, L500.3400, L501.5200, L501.9100, L500.2500, L503.5510, L100.0100, L300.3900, L300.4310 ####[facility] [address] [facility], [address] MCH (RBC) [Entitic mass] 27.7 pg Normal 27.0-32.0 [facility] Comment on above: Performed By: #### L 505.5000, L501.3620, L500.3400, L501.5200, L501.9100, L500.2500, L503.5510, L100.0100, L300.3900, L300.4310 ####[facility] [address] [facility], [address] MCHC (RBC) [Mass/Vol] 32.2 g/dL Normal 32-36 [facility] Comment on above: Performed By: #### L 505.5000, L501.3620, L500.3400, L501.5200, L501.9100, L500.2500, L503.5510, L100.0100, L300.3900, L300.4310 ####[facility] [address] [facility], [address] MCV (RBC) [Entitic vol] 86.0 fL Normal 81-99 [facility] Comment on above: Performed By: #### L 505.5000, L501.3620, L500.3400, L501.5200, L501.9100, L500.2500, L503.5510, L100.0100, L300.3900, L300.4310 ####[facility] [address] [place], [phone]) Monocytes/100 WBC (Bld) 7.7 % Normal 0-10 [facility] Comment on above: Performed By: #### L 505.5000, L501.3620, L500.3400, L501.5200, L501.9100, L500.2500, L503.5510, L100.0100, L300.3900, L300.4310 ####[facility] [address] [place], [phone] Neutrophils/100 WBC (Bld) 80.1 % High 47-70 [facility] Comment on above: Performed By: #### L 505.5000, L501.3620, L500.3400, L501.5200, L501.9100, L500.2500, L503.5510, L100.0100, L300.3900, L300.4310 ####[facility] [address] [place], [address] Nucleated RBC (Bld) [#/Vol] 0 10*3/uL Normal 0-5 [facility] Comment on above: Performed By: #### L 505.5000, L501.3620, L500.3400, L501.5200, L501.9100, L500.2500, L503.5510, L100.0100, L300.3900, L300.4310 ####[facility] [address] [place], [address] Platelet mean volume (Bld) [Entitic vol] 11.0 fL Normal 6.2-12.0 [facility] Comment on above: Performed By: #### L 505.5000, L501.3620, L500.3400, L501.5200, L501.9100, L500.2500, L503.5510, L100.0100, L300.3900, L300.4310 ####[facility] [address] [place], [address] Platelets (Bld) [#/Vol] 122 10*3/uL Low 150-450 [facility] Comment on above: Performed By: #### L 505.5000, L501.3620, L500.3400, L501.5200, L501.9100, L500.2500, L503.5510, L100.0100, L300.3900, L300.4310 ####[facility] [address] [place], [address] RBC (Bld) [#/Vol] 4.22 10*6/uL Normal 4.2-5.4 [facility] Comment on above: Performed By: #### L 505.5000, L501.3620, L500.3400, L501.5200, L501.9100, L500.2500, L503.5510, L100.0100, L300.3900, L300.4310 ####[facility] [address] [place], [address] RDW SD 55.8 fl High 35.1-43.9 [facility] Comment on above: Performed By: #### L 505.5000, L501.3620, L500.3400, L501.5200, L501.9100, L500.2500, L503.5510, L100.0100, L300.3900, L300.4310 ####[facility] [address] [place], [address] WBC (Bld) [#/Vol] 9.8 10*3/uL Normal 4.4-11.0 [facility] Comment on above: Performed By: #### L 505.5000, L501.3620, L500.3400, L501.5200, L501.9100, L500.2500, L503.5510, L100.0100, L300.3900, L300.4310 ####[facility] [address] [place], [address] CPK Total, Creatine Kinaseon 08-08-2025 CPK TOTAL 180 U/L Normal 24-195 [facility] Comment on above: Performed By: #### L 505.5000, L501.3620, L500.3400, L501.5200, L501.9100, L500.2500, L503.5510, L100.0100, L300.3900, L300.4310 ####[facility] [address] [place], [address] Chest 1 View (Portable)on Chest 1 View (Portable) Normal [facility] Emergency Department Summary on 08-08-2025 Emergency Department Summary Normal [facility] H AND P Exam - Hospitaliston 08-08-2025 H&P Exam - Hospitalist Normal [facility] Hyaline casts LM.LPF (Urine sed) [#/Area]Ordered By: Yasmani Haynes on 08-08-2025 Hyaline casts (Urine sed) [#/Area] 10 /[LPF] 0-5 [facility] Ketones Test strip Ql (U)Ord ered By: Yasmani Haynes on 08-08-2025 Ketones Ql (U) Negative Negative [facility] Liver Profileon 08-08-2025 Albumin [Mass/Vol] 4.0 g/dL Normal 3.4-4.8 [facility] Comment on above: Performed By: #### L 505.5000, L501.3620, L500.3400, L501.5200, L501.9100, L500.2500, L503.5510, L100.0100, L300.3900, L300.4310 ####[facility] [address] [place], [place], [id number] ALK PHOS 104 U/L Normal 35-104 [facility] Comment on above: Performed By: #### L 505.5000, L501.3620, L500.3400, L501.5200, L501.9100, L500.2500, L503.5510, L100.0100, L300.3900, L300.4310 ####[facility] [address] [place], [place], [phone] ALT [Catalytic activity/Vol] 23 U/L Normal <=34 [facility] Comment on above: Performed By: #### L 505.5000, L501.3620, L500.3400, L501.5200, L501.9100, L500.2500, L503.5510, L100.0100, L300.3900, L300.4310 ####[facility] [address] [facility], [phone] AST [Catalytic activity/Vol] 24 U/L Normal <=31 [facility] Comment on above: Performed By: #### L 505.5000, L501.3620, L500.3400, L501.5200, L501.9100, L500.2500, L503.5510, L100.0100, L300.3900, L300.4310 ####[facility] [address] [facility] [address] [place], [place], [phone] Bilirubin [Mass/Vol] 0.35 mg/dL Normal 0.00-1.30 [facility] Comment on above: Performed By: #### L 505.5000, L501.3620, L500.3400, L501.5200, L501.9100, L500.2500, L503.5510, L100.0100, L300.3900, L300.4310 ####[facility] [address] [facility] [address] [place], [place], [phone] Bilirubin.direct [Mass/Vol] 0.18 mg/dL Normal 0.00-0.30 [facility] Comment on above: Performed By: #### L 505.5000, L501.3620, L500.3400, L501.5200, L501.9100, L500.2500, L503.5510, L100.0100, L300.3900, L300.4310 ####[facility] [address] [facility] [place], [place], [phone] Globulin (S) [Mass/Vol] 2.9 g/dL Normal 2.2-4.2 [facility] Comment on above: Performed By: #### L 505.5000, L501.3620, L500.3400, L501.5200, L501.9100, L500.2500, L503.5510, L100.0100, L300.3900, L300.4310 ####[facility] [address] [facility] [place], [address] T PROT 6.9 g/dL Normal 5.9-8.4 [facility] Comment on above: Performed By: #### L 505.5000, L501.3620, L500.3400, L501.5200, L501.9100, L500.2500, L503.5510, L100.0100, L300.3900, L300.4310 ####[facility] [address] [facility] [place], [address] Magnesiumon 08-08-2025 Magnesium [Mass/Vol] 3.0 mg/dL High 1.5-2.2 [facility] Comment on above: Performed By: #### L 505.5000, L501.3620, L500.3400, L501.5200, L501.9100, L500.2500, L503.5510, L100.0100, L300.3900, L300.4310 ####[facility] [address] [facility] [place], [address] Mucus LM Ql (Urine sed)Order ed By: Yasmani Haynes on 08-08-2025 Mucus Ql (Urine sed) 0 SEEN /hpf [facility] Nitrite Test strip Ql (U)Ord ered By: Yasmani Haynes on 08-08-2025 Nitrite Ql (U) Negative Negative [facility] No Panel InformationOrdered By: Yasmani Haynes on 08-08-2025 Positive < 100 ng/mL [facility] Negative < 200 ng/mL [facility] Partial Thromboplast Timeon 08-08-2025 aPTT Coag (Bld) [Time] 30.6 s Normal 24.1-36.2 [facility] Comment on above: Performed By: #### L 505.5000, L501.3620, L500.3400, L501.5200, L501.9100, L500.2500, L503.5510, L100.0100, L300.3900, L300.4310 ####[facility] [address] [place], [place], [phone] Pelvis 1 or 2 Viewson 2024 Pelvis 1 or 2 Views Normal [facility] Phosphoruson 08-08-2025 Phosphate [Mass/Vol] 5.6 mg/dL High 2.7-4.5 [facility] Comment on above: Performed By: #### L 501.2300, L501.9520 ####[facility] [address] [place], [place], [address] Procalcitonin [Mass/volume] in Serum or Plasma by ImmunoassayOrdered By: Sommer Resendiz on 08-08-2025 Procalcitonin IA [Mass/Vol] 0.10 ng/mL <0.11 [facility] Protein Test strip Ql (U)Ord ered By: Yasmani Haynes on 08-08-2025 Protein Ql (U) 30 mg/dl High Negative [facility] Prothrombin Time w/INRon INR Coag (PPP) [Relative time] 1.2 {INR} Normal [facility] Comment on above: Performed By: #### L 505.5000, L501.3620, L500.3400, L501.5200, L501.9100, L500.2500, L503.5510, L100.0100, L300.3900, L300.4310 ####[facility] [address] [place], [place], [address] Prothrombin timeOrdered By: Yasmani Haynes on 08-08-2025 PT Coag (PPP) [Time] 14.9 s Normal 11.7-14.9 [facility] Comment on above: Performed By: #### L 505.5000, L501.3620, L500.3400, L501.5200, L501.9100, L500.2500, L503.5510, L100.0100, L300.3900, L300.4310 ####[facility] [address] [place], [place], [phone] Random urine creatinine stefania urement (mass/volume)Ordered By: Sommer Resendiz on 08-08-2025 Creatinine Unsp time (U) [Mass/Vol] 117.00 mg/dL 28.00-217. 00 [facility] Screening urine fentanyl felicia surementOrdered By: Yasmani Haynes on 08-08-2025 fentaNYL Screen Ql (U) Negative <5 ng/mL [facility] Serum or plasma creatine kin ase activityOrdered By: Yasmani Haynes on 08-08-2025 CK [Catalytic activity/Vol] 180 U/L 24-195 [facility] Serum or plasma ethanol stefania urement (mass/volume)Ordered By: Yasmani Haynes on 08-08-2025 Ethanol [Mass/Vol] mg/dL <10.1 [facility] Shoulder min 2 Viewson 08-08 Shoulder min 2 Views Normal [facility] Sinus/Facial Boneon 08-08-20 25 Sinus/Facial Bone Normal [facility] Spine Cervical without Contr ason 08-08-2025 Spine Cervical without Contras Normal [facility] Squamous epithelial cells de tection in urine sediment by light microscopyOrdered By: Yasmani Haynes on 08-08-2025 Epithelial cells.squamous LM Ql (Urine sed) 0-5 SEEN /hpf 5-10 [facility] TSH DL <= 0.005 mIU/L QnOrde red By: Yasmani Haynes on 08-08-2025 TSH Qn 2.120 uIU/mL 0.300-4.20 0 [facility] Thyroid Stim Hormone (TSH)on 08-08-2025 TSH 2.120 uIU/mL Normal 0.300-4.20 0 [facility] Comment on above: Performed By: #### L 501.2300, L501.9520 ####[facility] [address] [place], [address] Urinalysis, Completeon 08-08 BACTERIA 2+ /hpf Normal None Seen [facility] Comment on above: Order Comment: COLLE CTOR TO SPECIFY Performed By: #### L 400.0001 ####[facility] [address] [place], [address] CAST,HYALINE 10-25 SEEN Normal 0-5 [facility] Comment on above: Order Comment: COLLE CTOR TO SPECIFY Performed By: #### L 400.0001 ####[facility] [address] [place], [address] EPI,RENAL 0-5 SEEN Normal 0-5 [facility] Comment on above: Order Comment: COLLE CTOR TO SPECIFY Performed By: #### L 400.0001 ####[facility] [address] [place], [address] EPI,SQUAMOUS 0-5 SEEN Normal 5-10 [facility] Comment on above: Order Comment: COLLE CTOR TO SPECIFY Performed By: #### L 400.0001 ####[facility] [address] [place], [address] RBC 0-5 SEEN Normal 0-5 [facility] Comment on above: Order Comment: COLLE CTOR TO SPECIFY Performed By: #### L 400.0001 ####[facility] [address] [place], [address] WBC 5-10 SEEN Normal 0-5 [facility] Comment on above: Order Comment: COLLE CTOR TO SPECIFY Performed By: #### L 400.0001 ####[facility] [address] [place], [address] Mucus Ql (Urine sed) 0 SEEN Normal [facility] Comment on above: Order Comment: COLLE CTOR TO SPECIFY Performed By: #### L 400.0001 ####[facility] [address] [place], [address] Urine Drug Screen (VISTA)on 08-08-2025 AMPHETAMINES Negative Normal <1000 ng/mL [facility] Comment on above: Performed By: #### L 505.5000, L501.3620, L500.3400, L501.5200, L501.9100, L500.2500, L503.5510, L100.0100, L300.3900, L300.4310 ####[facility] [address] [place], [address] BARBITIURATES Negative Normal < 200 ng/mL [facility] Comment on above: Performed By: #### L 505.5000, L501.3620, L500.3400, L501.5200, L501.9100, L500.2500, L503.5510, L100.0100, L300.3900, L300.4310 ####[facility] [address] [place], [place], [phone] BENZODIAZIPINE Negative Normal < 200 ng/mL [facility] Comment on above: Performed By: #### L 505.5000, L501.3620, L500.3400, L501.5200, L501.9100, L500.2500, L503.5510, L100.0100, L300.3900, L300.4310 ####[facility] [address] [place], [address] BUP Ur Drug Scr Negative Normal < 200 ng/mL [facility] Comment on above: Performed By: #### L 505.5000, L501.3620, L500.3400, L501.5200, L501.9100, L500.2500, L503.5510, L100.0100, L300.3900, L300.4310 ####[facility] [address] [place], [place], [phone] COCAINE Negative Normal < 300 ng/mL [facility] Comment on above: Performed By: #### L 505.5000, L501.3620, L500.3400, L501.5200, L501.9100, L500.2500, L503.5510, L100.0100, L300.3900, L300.4310 ####[facility] [address] [place], [address] Fentanyl Negative Normal <5 ng/mL [facility] Comment on above: Result Comment: CONF IRMATORY TESTING FOR ALL POSITIVE URINE DRUG SCREENRESULTS WILL ONLY BE SENT OUT UPON PHYSICIAN ORDER.Saud Pro Urine Drug Screen methods provide only preliminaryanalytical test results. A more specific alternate chemicalmethod must be used in order to obtain a confirmedanalytical result. Gas chromatography/mass spectrometery(GC/MS) is the preferred confirmatory method. Clinicalconsideration and professional judgement should be appliedto any drug of abuse test result, particularly whenpreliminary positive results are used.Urine TCA testing must be ordered separately. Use testmnemonic: [facility] Performed By: #### L 505.5000, L501.3620, L500.3400, L501.5200, L501.9100, L500.2500, L503.5510, L100.0100, L300.3900, L300.4310 ####[facility] [address] [place], [place], [phone] METHADONE Negative Normal < 300 ng/mL [facility] Comment on above: Performed By: #### L 505.5000, L501.3620, L500.3400, L501.5200, L501.9100, L500.2500, L503.5510, L100.0100, L300.3900, L300.4310 ####[facility] [address] [place], [address] OPIATES Negative Normal < 300 ng/mL [facility] Comment on above: Performed By: #### L 505.5000, L501.3620, L500.3400, L501.5200, L501.9100, L500.2500, L503.5510, L100.0100, L300.3900, L300.4310 ####[facility] [address] [place], [place], [id number] OXYCODONE Positive Normal < 100 ng/mL [facility] Comment on above: Result Comment: If c onfirmation testing is needed, a separate order will berequired to send out testing to the reference laboratory. Performed By: #### L 505.5000, L501.3620, L500.3400, L501.5200, L501.9100, L500.2500, L503.5510, L100.0100, L300.3900, L300.4310 ####[facility] [address] [place], [place], [phone] PCP Negative Normal < 25 ng/mL [facility] Comment on above: Performed By: #### L 505.5000, L501.3620, L500.3400, L501.5200, L501.9100, L500.2500, L503.5510, L100.0100, L300.3900, L300.4310 ####[facility] [address] [place], [place], [phone] THC Negative Normal < 50 ng/mL [facility] Comment on above: Performed By: #### L 505.5000, L501.3620, L500.3400, L501.5200, L501.9100, L500.2500, L503.5510, L100.0100, L300.3900, L300.4310 ####[facility] [address] [place], [place], [phone] Urine clarityOrdered By: Ever Haynes on 09-20-2025 Clarity (U) Clear Clear [facility] Urine color determinationOrd ered By: Yasmani Haynes on 08-08-2025 Color (U) Yellow Yellow [facility] Urine cultureOrdered By: Ever Haynes on 08-08-2025 Bacteria identified Cx Nom (U) Culture exhibits no growth. [facility] Urine glucose detectionOrder ed By: Yasmani Haynes on 08-08-2025 Glucose Ql (U) Normal mg/dl Normal [facility] Urine leukocyte esterase det ection by dipstickOrdered By: Yasmani Haynes on 08-08-2025 Leukocyte esterase Test strip Ql (U) 25 /ul High Negative [facility] Urine pHOrdered By: Yasmani ribeiro on 08-08-2025 pH (U) 5.0 [pH] 5.0 - 8.0 [facility] Urine phencyclidine (PCP) de tectionOrdered By: Yasmani Haynes on 08-08-2025 Phencyclidine Ql (U) Negative < 25 ng/mL [facility] Urine sediment bacteria coun t by microscopy (number/high power field)Ordered By: Yasmani Haynes on 08-08-2025 Bacteria LM.HPF (Urine sed) [#/Area] 2 /[HPF] None Seen [facility] Urine sediment renal epithel ial cell count by microscopy (number/high power field)Ordered By: Yasmani Haynes on 08-08-2025 Epithelial cells.renal LM.HPF (Urine sed) [#/Area] 0 /[HPF] 0-5 [facility] Urine specific gravity measu rementOrdered By: Yasmani Haynes on 08-08-2025 Specific gravity (U) [Rel density] 1.020 1.002-1.03 0 [facility] Urine urobilinogen measureme ntOrdered By: Yasmani Haynes on 08-08-2025 Urobilinogen Ql (U) Normal mg/dl Normal [facility] Venous blood ammonia measure mentOrdered By: Yasmani Haynes on 08-08-2025 Ammonia (P) [Moles/Vol] 12.1 umol/L 11-51 [facility] White blood cell countOrdere d By: Yasmani Haynes on 08-08-2025 White blood cell count 5-10 SEEN /hpf 0-5 [facility] Anion gap in Serum or Plasma Ordered By: Yasmani Haynes on 08-06-2025 Anion gap [Moles/Vol] 13 mmol/L 5-15 [facility] BUN/creatinine ratioOrdered By: Yasmani Haynes on 08-06-2025 Urea nitrogen/Creatinine [Mass ratio] 29.9 mg/mg High 10- [facility] Basic Metabolic Profile (BMP )on 08-06-2025 BUN/CRE 29.9 RATIO High - [facility] Comment on above: Performed By: #### L 500.2500 ####[facility] [address] [place], [address] Calcium [Mass/Vol] 9.1 mg/dL Normal 7.6-11.0 [facility] Comment on above: Performed By: #### L 500.2500 ####[facility] [address] [place], [address] Chloride [Moles/Vol] 100 mmol/L Normal 98-108 [facility] Comment on above: Performed By: #### L 500.2500 ####[facility] [address] [place], [address] CO2 [Moles/Vol] 25.3 mmol/L Normal 21.0-32.0 [facility] Comment on above: Performed By: #### L 500.2500 ####[facility] [address] [place], [address] Creatinine [Mass/Vol] 1.85 mg/dL High 0.70-1.20 [facility] Comment on above: Performed By: #### L 500.2500 ####[facility] [address] [place], [address] ECRCL 22.99 ml/min Low 50-250 [facility] Comment on above: Performed By: #### L 500.2500 ####[facility] [address] [place], [address] GAP 13 Normal 5-15 [facility] Comment on above: Performed By: #### L 500.2500 ####[facility] [address] [place], [address] GFR/1.73 sq M.predicted among non-blacks MDRD (S/P/Bld) [Vol rate/Area] 29 mL/min/{1.73_m2} Low >60 [facility] Comment on above: Result Comment: mL/m in/1.73m2 CKD-EPI Creatinine Equation (2020) Performed By: #### L 500.2500 ####[facility] [address] [place], [address] Glucose [Mass/Vol] 103 mg/dL High 70-99 [facility] Comment on above: Performed By: #### L 500.2500 ####[facility] [address] [place], [address] Potassium [Moles/Vol] 4.0 mmol/L Normal 3.3-5.1 [facility] Comment on above: Performed By: #### L 500.2500 ####[facility] [address] [place], [address] Sodium [Moles/Vol] 138 mmol/L Normal 133-145 [facility] Comment on above: Performed By: #### L 500.2500 ####[facility] [address] [place], [address] Urea nitrogen [Mass/Vol] 55 mg/dL High 4-19 [facility] Comment on above: Performed By: #### L 500.2500 ####[facility] [address] [place], [address] Carbon dioxide, total [Moles /volume] in Central venous bloodOrdered By: Yasmani Haynes on 08-06-2025 CO2 [Moles/Vol] 25.3 mmol/L 21.0-32.0 [facility] Chloride assayOrdered By: Kari Haynes on 08-06-2025 Chloride [Moles/Vol] 100 mmol/L 98-108 [facility] Glomerular filtration rate ( GFR) estimation/1.73 sq m using serum, plasma, or whole bOrdered By: Yasmani Haynes on 08-06-2025 GFR/1.73 sq M.predicted among non-blacks MDRD (S/P/Bld) [Vol rate/Area] 29 mL/min/{1.73_m2} Low >60 [facility] Potassium measurement (mass/ volume)Ordered By: Yasmani Haynes on 08-06-2025 Potassium (Unsp spec) [Mass/Vol] 4.0 mmol/L 3.3-5.1 [facility] Serum creatinine measurement (mass/volume)Ordered By: Yasmani Haynes on 08-06-2025 Creatinine [Mass/Vol] 1.85 mg/dL High 0.70-1.20 [facility] Serum glucose measurement (m ass/volume)Ordered By: Yasmani Haynes on 08-06-2025 Glucose [Mass/Vol] 103 mg/dL High 70-99 [facility] Serum or plasma calcium stefania urement (mass/volume)Ordered By: Yasmani Haynes on 08-06-2025 Calcium [Mass/Vol] 9.1 mg/dL 7.6-11.0 [facility] Serum or plasma urea nitroge n measurement (mass/volume)Ordered By: Yasmani Haynes on 08-06-2025 Urea nitrogen [Mass/Vol] 55 mg/dL High 4-19 [facility] Sodium levelOrdered By: Joce Haynes on 08-06-2025 Sodium [Moles/Vol] 138 mmol/L 133-145 [facility] Troponin T HS 4 HRon 025 Trop T High Sen 32 ng/L High <=14 [facility] Comment on above: Performed By: #### L 499.0043 ####[facility] [address] [place], [address] Troponin T.cardiac [Mass/vol ume] in Serum or Plasma by High sensitivity methodOrdered By: Jeffy Willoughby on 08-06-2025 Troponin T.cardiac High sensitivity method [Mass/Vol] 32 ng/L High <14 [facility] 12 Lead EKGon 08-05-2025 12 Lead EKG Normal [facility] Absolute lymphocyte countOrd ered By: Jeffy Willoughby on 08-05-2025 Lymphocytes Auto (Unsp spec) [#/Vol] 1.15 10*3/uL 0.83-4.51 [facility] Automated lymphocyte count a s percentage of total leukocytesOrdered By: Jeffy Willoughby on 08-05-2025 Lymphocytes/100 WBC Auto (Unsp spec) 18.2 % Low 19-41 [facility] Basic Metabolic Profile (BMP )on 08-05-2025 BUN/CRE 29.2 RATIO High 10-20 [facility] Comment on above: Performed By: #### L 500.2500, L100.0100 ####[facility] [address] [place], [address] Calcium [Mass/Vol] 9.5 mg/dL Normal 7.6-11.0 [facility] Comment on above: Performed By: #### L 500.2500, L100.0100 ####[facility] [address] [place], [address] Chloride [Moles/Vol] 96 mmol/L Low 98-108 [facility] Comment on above: Performed By: #### L 500.2500, L100.0100 ####[facility] [address] [place], [address] CO2 [Moles/Vol] 31.1 mmol/L Normal 21.0-32.0 [facility] Comment on above: Performed By: #### L 500.2500, L100.0100 ####[facility] [address] [place], [address] Creatinine [Mass/Vol] 2.10 mg/dL High 0.70-1.20 [facility] Comment on above: Performed By: #### L 500.2500, L100.0100 ####[facility] [address] [place], [address] ECRCL 20.25 ml/min Low 50-250 [facility] Comment on above: Performed By: #### L 500.2500, L100.0100 ####[facility] [address] [place], [address] GAP 12 Normal 5-15 [facility] Comment on above: Performed By: #### L 500.2500, L100.0100 ####[facility] [address] [place], [address] GFR/1.73 sq M.predicted among non-blacks MDRD (S/P/Bld) [Vol rate/Area] 25 mL/min/{1.73_m2} Low >60 [facility] Comment on above: Result Comment: mL/m in/1.73m2 CKD-EPI Creatinine Equation (2020) Performed By: #### L 500.2500, L100.0100 ####[facility] [address] [place], [address] Glucose [Mass/Vol] 119 mg/dL High 70-99 [facility] Comment on above: Performed By: #### L 500.2500, L100.0100 ####[facility] [address] [place], [address] Potassium [Moles/Vol] 4.9 mmol/L Normal 3.3-5.1 [facility] Comment on above: Performed By: #### L 500.2500, L100.0100 ####[facility] [address] [place], [address] Sodium [Moles/Vol] 139 mmol/L Normal 133-145 [facility] Comment on above: Performed By: #### L 500.2500, L100.0100 ####[facility] [address] [place], [address] Urea nitrogen [Mass/Vol] 61 mg/dL High 4-19 [facility] Comment on above: Performed By: #### L 500.2500, L100.0100 ####[facility] [address] [place], [address] Basophil percentageOrdered B y: Jeffy Willoughby on 08-05-2025 Basophils/100 WBC (Bld) 0.9 % 0-1 [facility] CBC W/Diff, Automatedon 07-20 Absolute Lymph 1.15 X10 3/uL Normal 0.83-4.51 [facility] Comment on above: Performed By: #### L 500.2500, L100.0100 ####[facility] [address] [place], [address] Absolute Neut 4.0 X10 3/uL Normal 2.0-7.7 [facility] Comment on above: Performed By: #### L 500.2500, L100.0100 ####[facility] [address] [place], [address] Basophils/100 WBC (Bld) 0.9 % Normal 0-1 [facility] Comment on above: Performed By: #### L 500.2500, L100.0100 ####[facility] [address] [place], [address] Eosinophils/100 WBC (Bld) 7.3 % High 0-5 [facility] Comment on above: Performed By: #### L 500.2500, L100.0100 ####[facility] [address] [place], [address] Erythrocyte distribution width (RBC) [Ratio] 18.3 % High 11.6-14.6 [facility] Comment on above: Performed By: #### L 500.2500, L100.0100 ####[facility] [address] [place], [address] Hematocrit (Bld) [Volume fraction] 33.0 % Low 37-47 [facility] Comment on above: Performed By: #### L 500.2500, L100.0100 ####[facility] [address] [place], [address] Hemoglobin (Bld) [Mass/Vol] 10.4 g/dL Low 12.0-15.0 [facility] Comment on above: Performed By: #### L 500.2500, L100.0100 ####[facility] [address] [place], [address] IG% 0.300 Normal 0.0-0.9 [facility] Comment on above: Result Comment: IG% - Immature Granulocytes (promyelocytes, myelocytes andmetamyelocytes) > 1% indicates that a LEFT SHIFT is Present. Performed By: #### L 500.2500, L100.0100 ####[facility] [address] [place], [address] Lymphocytes/100 WBC (Bld) 18.2 % Low 19-41 [facility] Comment on above: Performed By: #### L 500.2500, L100.0100 ####[facility] [address] [place], [address] MCH (RBC) [Entitic mass] 27.7 pg Normal 27.0-32.0 [facility] Comment on above: Performed By: #### L 500.2500, L100.0100 ####[facility] [address] [place], [address] MCHC (RBC) [Mass/Vol] 31.5 g/dL Low 32-36 [facility] Comment on above: Performed By: #### L 500.2500, L100.0100 ####[facility] [address] [place], [address] MCV (RBC) [Entitic vol] 87.8 fL Normal 81-99 [facility] Comment on above: Performed By: #### L 500.2500, L100.0100 ####[facility] [address] [place], [address] Monocytes/100 WBC (Bld) 9.5 % Normal 0-10 [facility] Comment on above: Performed By: #### L 500.2500, L100.0100 ####[facility] [address] [place], [address] Neutrophils/100 WBC (Bld) 63.8 % Normal 47-70 [facility] Comment on above: Performed By: #### L 500.2500, L100.0100 ####[facility] [address] [place], [address] Nucleated RBC (Bld) [#/Vol] 0 10*3/uL Normal 0-5 [facility] Comment on above: Performed By: #### L 500.2500, L100.0100 ####[facility] [address] [place], [address] Platelet mean volume (Bld) [Entitic vol] 10.2 fL Normal 6.2-12.0 [facility] Comment on above: Performed By: #### L 500.2500, L100.0100 ####[facility] [address] [place], [address] Platelets (Bld) [#/Vol] 108 10*3/uL Low 150-450 [facility] Comment on above: Performed By: #### L 500.2500, L100.0100 ####[facility] [address] [place], [address] RBC (Bld) [#/Vol] 3.76 10*6/uL Low 4.2-5.4 [facility] Comment on above: Performed By: #### L 500.2500, L100.0100 ####[facility] [address] [place], [address] RDW SD 58.3 fl High 35.1-43.9 [facility] Comment on above: Performed By: #### L 500.2500, L100.0100 ####[facility] [address] [place], [address] WBC (Bld) [#/Vol] 6.3 10*3/uL Normal 4.4-11.0 [facility] Comment on above: Performed By: #### L 500.2500, L100.0100 ####[facility] [address] [place], [address] Cardiology Visit Reporton Cardiology Visit Report Normal [facility] Emergency Department Summary on 08-05-2025 Emergency Department Summary Normal [facility] Eosinophil percentageOrdered By: Jeffyaura Willoughby on 08-05-2025 Eosinophils/100 WBC (Bld) 7.3 % High 0-5 [facility] Erythrocyte distribution wid th ratioOrdered By: Jeffyaura Willoughby on 08-05-2025 Erythrocyte distribution width (RBC) [Ratio] 18.3 % High 11.6-14.6 [facility] Erythrocyte distribution wid th standard deviationOrdered By: Jeffy Willoughby on 08-05-2025 Erythrocyte distribution width (RBC) [Ratio] 58.3 fl High 35.1-43.9 [facility] Hematocrit Auto (Bld) [Volum e fraction]Ordered By: Jeffyaura Willoughby on 08-05-2025 Hematocrit (Bld) [Volume fraction] 33.0 % Low 37-47 [facility] Hemoglobin measurementOrdere d By: Jeffy Willoughby on 08-05-2025 Hemoglobin (Bld) [Mass/Vol] 10.4 g/dL Low 12.0-15.0 [facility] Immature granulocytes/100 WB C Auto (Bld)Ordered By: Jeffyaura Willoughby on 08-05-2025 Immature granulocytes/100 WBC (Bld) 0.300 % 0.0-0.9 [facility] L501.4021on 08-05-2025 Trop T High Sen 34 ng/L High <=14 [facility] Comment on above: Performed By: #### L 501.4021 ####[facility] [address] [place], [place], [id number] MCV (mean corpuscular volume ) determinationOrdered By: Jeffy Willoughby on 08-05-2025 MCV (RBC) [Entitic vol] 87.8 fL 81-99 [facility] Mean corpuscular hemoglobin (MCH) determinationOrdered By: Jeffy Willoughby on 08-05-2025 MCH (RBC) [Entitic mass] 27.7 pg 27.0-32.0 [facility] Monocyte percentageOrdered B y: Jeffy Willoughby on 08-05-2025 Monocytes/100 WBC (Bld) 9.5 % 0-10 [facility] Neutrophil percentageOrdered By: Jeffy Willoughby on 08-05-2025 Neutrophils/100 WBC (Bld) 63.8 % 47-70 [facility] Platelet countOrdered By: Ug Willoughby on 08-05-2025 Platelets (Bld) [#/Vol] 108 10*3/uL Low 150-450 [facility] RBC Auto (Bld) [#/Vol]Ordere d By: Jeffy Willoughby on 08-05-2025 RBC (Bld) [#/Vol] 3.76 10*6/uL Low 4.2-5.4 [facility] Troponin T HS 2 HRon 025 Trop T High Sen 33 ng/L High <=14 [facility] Comment on above: Performed By: #### L 499.0042 ####[facility] [address] [place], [place], [id number] Troponin T.cardiac [Mass/vol ume] in Serum or Plasma by High sensitivity methodOrdered By: Jeffy Willoughby on 08-05-2025 Troponin T.cardiac High sensitivity method [Mass/Vol] 33 ng/L High <14 [facility] Troponin T.cardiac High sensitivity method [Mass/Vol] 34 ng/L High <14 [facility] White blood cell (WBC) count Ordered By: Jeffy Willoughby on 08-05-2025 WBC (Bld) [#/Vol] 6.3 10*3/uL 4.4-11.0 [facility] Troponin T HS 2 HRon 025 Trop T High Sen 27 ng/L High <=14 [facility] Comment on above: Performed By: #### L 499.0042 ####[facility] [address] [place], [place], [id number] Troponin T HS 4 HRon 025 Trop T High Sen Normal <=14 [facility] Comment on above: Result Comment: Canc elled via OM: Order cancelled - Patient discharged Performed By: #### L 499.0043 ####[facility] [address] [place], [place], [id number] 12 Lead EKGon 07-31-2025 12 Lead EKG Normal [facility] Absolute lymphocyte countOrd ered By: Jeffy Willoughby on 07-31-2025 Lymphocytes Auto (Unsp spec) [#/Vol] 0.97 10*3/uL 0.83-4.51 [facility] Anion gap in Serum or Plasma Ordered By: Jeffyaura Willoughby on 07-31-2025 Anion gap [Moles/Vol] 14 mmol/L 5-15 [facility] Automated lymphocyte count a s percentage of total leukocytesOrdered By: Jeffy Willoughby on 07-31-2025 Lymphocytes/100 WBC Auto (Unsp spec) 13.9 % Low 19-41 [facility] BUN/creatinine ratioOrdered By: Jeffyaura Willoughby on 07-31-2025 Urea nitrogen/Creatinine [Mass ratio] 25.8 mg/mg High 10-20 [facility] Basic Metabolic Profile (BMP )on 07-31-2025 BUN/CRE 25.8 RATIO High 10-20 [facility] Comment on above: Performed By: #### L 100.0100, L501.4021, L500.2500 ####[facility] [address] [place], [address] Calcium [Mass/Vol] 9.5 mg/dL Normal 7.6-11.0 [facility] Comment on above: Performed By: #### L 100.0100, L501.4021, L500.2500 ####[facility] [address] [place], [address] Chloride [Moles/Vol] 95 mmol/L Low 98-108 [facility] Comment on above: Performed By: #### L 100.0100, L501.4021, L500.2500 ####[facility] [address] [place], [address] CO2 [Moles/Vol] 28.3 mmol/L Normal 21.0-32.0 [facility] Comment on above: Performed By: #### L 100.0100, L501.4021, L500.2500 ####[facility] [address] [place], [address] Creatinine [Mass/Vol] 1.25 mg/dL High 0.70-1.20 [facility] Comment on above: Performed By: #### L 100.0100, L501.4021, L500.2500 ####[facility] [address] [place], [address] ECRCL 32.34 ml/min Low 50-250 [facility] Comment on above: Performed By: #### L 100.0100, L501.4021, L500.2500 ####[facility] [address] [place], [address] GAP 14 Normal 5-15 [facility] Comment on above: Performed By: #### L 100.0100, L501.4021, L500.2500 ####[facility] [address] [place], [address] GFR/1.73 sq M.predicted among non-blacks MDRD (S/P/Bld) [Vol rate/Area] 46 mL/min/{1.73_m2} Low >60 [facility] Comment on above: Result Comment: mL/m in/1.73m2 CKD-EPI Creatinine Equation (2020) Performed By: #### L 100.0100, L501.4021, L500.2500 ####[facility] [address] [place], [address] Glucose [Mass/Vol] 132 mg/dL High 70-99 [facility] Comment on above: Performed By: #### L 100.0100, L501.4021, L500.2500 ####[facility] [address] [place], [address] Potassium [Moles/Vol] 3.7 mmol/L Normal 3.3-5.1 [facility] Comment on above: Performed By: #### L 100.0100, L501.4021, L500.2500 ####[facility] [address] [place], [address] Sodium [Moles/Vol] 137 mmol/L Normal 133-145 [facility] Comment on above: Performed By: #### L 100.0100, L501.4021, L500.2500 ####[facility] [address] [place], [address] Urea nitrogen [Mass/Vol] 32 mg/dL High 4-19 [facility] Comment on above: Performed By: #### L 100.0100, L501.4021, L500.2500 ####[facility] [address] [place], [address] Basophil percentageOrdered B y: Jeffy Willoughby on 07-31-2025 Basophils/100 WBC (Bld) 0.9 % 0-1 [facility] CBC W/Diff, Automatedon 07-20 Absolute Lymph 0.97 X10 3/uL Normal 0.83-4.51 [facility] Comment on above: Performed By: #### L 100.0100, L501.4021, L500.2500 ####[facility] [address] [place], [address] Absolute Neut 4.9 X10 3/uL Normal 2.0-7.7 [facility] Comment on above: Performed By: #### L 100.0100, L501.4021, L500.2500 ####[facility] [address] [place], [address] Basophils/100 WBC (Bld) 0.9 % Normal 0-1 [facility] Comment on above: Performed By: #### L 100.0100, L501.4021, L500.2500 ####[facility] [address] [place], [address] Eosinophils/100 WBC (Bld) 6.6 % High 0-5 [facility] Comment on above: Performed By: #### L 100.0100, L501.4021, L500.2500 ####[facility] [address] [place], [address] Erythrocyte distribution width (RBC) [Ratio] 18.2 % High 11.6-14.6 [facility] Comment on above: Performed By: #### L 100.0100, L501.4021, L500.2500 ####[facility] [address] [place], [address] Hematocrit (Bld) [Volume fraction] 36.4 % Low 37-47 [facility] Comment on above: Performed By: #### L 100.0100, L501.4021, L500.2500 ####[facility] [address] [place], [address] Hemoglobin (Bld) [Mass/Vol] 11.7 g/dL Low 12.0-15.0 [facility] Comment on above: Performed By: #### L 100.0100, L501.4021, L500.2500 ####[facility] [address] [place], [address] IG% 0.300 Normal 0.0-0.9 [facility] Comment on above: Result Comment: IG% - Immature Granulocytes (promyelocytes, myelocytes andmetamyelocytes) > 1% indicates that a LEFT SHIFT is Present. Performed By: #### L 100.0100, L501.4021, L500.2500 ####[facility] [address] [place], [address] Lymphocytes/100 WBC (Bld) 13.9 % Low 19-41 [facility] Comment on above: Performed By: #### L 100.0100, L501.4021, L500.2500 ####[facility] [address] [place], [address] MCH (RBC) [Entitic mass] 27.6 pg Normal 27.0-32.0 [facility] Comment on above: Performed By: #### L 100.0100, L501.4021, L500.2500 ####[facility] [address] [place], [address] MCHC (RBC) [Mass/Vol] 32.1 g/dL Normal 32-36 [facility] Comment on above: Performed By: #### L 100.0100, L501.4021, L500.2500 ####[facility] [address] [place], [address] MCV (RBC) [Entitic vol] 85.8 fL Normal 81-99 [facility] Comment on above: Performed By: #### L 100.0100, L501.4021, L500.2500 ####[facility] [address] [place], [address] Monocytes/100 WBC (Bld) 8.6 % Normal 0-10 [facility] Comment on above: Performed By: #### L 100.0100, L501.4021, L500.2500 ####[facility] [address] [place], [address] Neutrophils/100 WBC (Bld) 69.7 % Normal 47-70 [facility] Comment on above: Performed By: #### L 100.0100, L501.4021, L500.2500 ####[facility] [address] [place], [address] Nucleated RBC (Bld) [#/Vol] 0 10*3/uL Normal 0-5 [facility] Comment on above: Performed By: #### L 100.0100, L501.4021, L500.2500 ####[facility] [address] [place], [address] Platelet mean volume (Bld) [Entitic vol] 10.5 fL Normal 6.2-12.0 [facility] Comment on above: Performed By: #### L 100.0100, L501.4021, L500.2500 ####[facility] [address] [place], [address] Platelets (Bld) [#/Vol] 131 10*3/uL Low 150-450 [facility] Comment on above: Performed By: #### L 100.0100, L501.4021, L500.2500 ####[facility] [address] [place], [address] RBC (Bld) [#/Vol] 4.24 10*6/uL Normal 4.2-5.4 [facility] Comment on above: Performed By: #### L 100.0100, L501.4021, L500.2500 ####[facility] [address] [place], [address] RDW SD 57.0 fl High 35.1-43.9 [facility] Comment on above: Performed By: #### L 100.0100, L501.4021, L500.2500 ####[facility] [address] [place], [address] WBC (Bld) [#/Vol] 7.0 10*3/uL Normal 4.4-11.0 [facility] Comment on above: Performed By: #### L 100.0100, L501.4021, L500.2500 ####[facility] [address] [place], [address] Carbon dioxide, total [Moles /volume] in Central venous bloodOrdered By: Jeffy Willoughby on 07-31-2025 CO2 [Moles/Vol] 28.3 mmol/L 21.0-32.0 [facility] Chest 1 View (Portable)on Chest 1 View (Portable) Normal [facility] Chloride assayOrdered By: [facility] Case on 07-31-2025 Chloride [Moles/Vol] 95 mmol/L Low 98-108 [facility] Emergency Department Summary on 07-31-2025 Emergency Department Summary Normal [facility] Eosinophil percentageOrdered By: Jeffyaura Willoughby on 07-31-2025 Eosinophils/100 WBC (Bld) 6.6 % High 0-5 [facility] Erythrocyte distribution wid th ratioOrdered By: Jeffyaura Willoughby on 07-31-2025 Erythrocyte distribution width (RBC) [Ratio] 18.2 % High 11.6-14.6 [facility] Erythrocyte distribution wid th standard deviationOrdered By: Jeffyaura Willoughby on 07-31-2025 Erythrocyte distribution width (RBC) [Ratio] 57.0 fl High 35.1-43.9 [facility] Glomerular filtration rate ( GFR) estimation/1.73 sq m using serum, plasma, or whole bOrdered By: Jeffy Willoughby on 07-31-2025 GFR/1.73 sq M.predicted among non-blacks MDRD (S/P/Bld) [Vol rate/Area] 46 mL/min/{1.73_m2} Low >60 [facility] Hematocrit Auto (Bld) [Volum e fraction]Ordered By: Jeffy Willoughby on 07-31-2025 Hematocrit (Bld) [Volume fraction] 36.4 % Low 37-47 [facility] Hemoglobin measurementOrdere d By: Jeffy Willoughby on 07-31-2025 Hemoglobin (Bld) [Mass/Vol] 11.7 g/dL Low 12.0-15.0 [facility] Immature granulocytes/100 WB C Auto (Bld)Ordered By: Jeffyaura Willoughby on 07-31-2025 Immature granulocytes/100 WBC (Bld) 0.300 % 0.0-0.9 [facility] L501.4021on 07-31-2025 Trop T High Sen 29 ng/L High <=14 [facility] Comment on above: Performed By: #### L 100.0100, L501.4021, L500.2500 ####[facility] [address] [place], [address] MCV (mean corpuscular volume ) determinationOrdered By: [facility] on 07-[facility]-20[facility] MCV (RBC) [Entitic vol] 85.8 fL 81-99 [facility] Mean corpuscular hemoglobin (MCH) determinationOrdered By: [facility] on 07-31-2025 MCH (RBC) [Entitic mass] 27.6 pg 27.0-32.0 [facility] Monocyte percentageOrdered B y: Jeffyaura Willoughby on 07-31-2025 Monocytes/100 WBC (Bld) 8.6 % 0-10 [facility] Neutrophil percentageOrdered By: [facility] on 07-31-2025 Neutrophils/100 WBC (Bld) 69.7 % 47-70 [facility] Platelet countOrdered By: [facility] on 07-[facility] Platelets (Bld) [#/Vol] 131 10*3/uL Low 150-450 [facility] Potassium measurement (mass/ volume)Ordered By: Jeffyaura Willoughby on 07-31-2025 Potassium (Unsp spec) [Mass/Vol] 3.7 mmol/L 3.3-5.1 [facility] RBC Auto (Bld) [#/Vol]Ordere d By: Jeffyaura Willoughby on 07-31-2025 RBC (Bld) [#/Vol] 4.24 10*6/uL 4.2-5.4 [facility] Serum creatinine measurement (mass/volume)Ordered By: Jeffyaura Willoughby on 07-31-2025 Creatinine [Mass/Vol] 1.25 mg/dL High 0.70-1.20 [facility] Serum glucose measurement (m ass/volume)Ordered By: [facility] on 07-31-2025 Glucose [Mass/Vol] 132 mg/dL High 70-99 [facility] Serum or plasma calcium stefania urement (mass/volume)Ordered By: [facility] on 07-31-2025 Calcium [Mass/Vol] 9.5 mg/dL 7.6-11.0 [facility] Serum or plasma urea nitroge n measurement (mass/volume)Ordered By: [facility] on 07-31-2025 Urea nitrogen [Mass/Vol] 32 mg/dL High 4-19 [facility] Sodium levelOrdered By: [facility] on 07-31-2025 Sodium [Moles/Vol] 137 mmol/L 133-145 [facility] Troponin T.cardiac [Mass/vol ume] in Serum or Plasma by High sensitivity methodOrdered By: [facility] on 07-31-2025 Troponin T.cardiac High sensitivity method [Mass/Vol] 27 ng/L High <14 [facility] Troponin T.cardiac High sensitivity method [Mass/Vol] 29 ng/L High <14 [facility] White blood cell (WBC) count Ordered By: [facility] on 07-31-2025 WBC (Bld) [#/Vol] 7.0 10*3/uL 4.4-11.0 [facility] Basic Metabolic Profile (BMP )on 07-23-2025 BUN/CRE 25.8 RATIO High 10-20 [facility] Comment on above: Performed By: #### L 100.0100, L500.2500 ####[facility] [address] [place], [address] Calcium [Mass/Vol] 9.4 mg/dL Normal 7.6-11.0 [facility] Comment on above: Performed By: #### L 100.0100, L500.2500 ####[facility] [address] [place], [address] Chloride [Moles/Vol] 94 mmol/L Low 98-108 [facility] Comment on above: Performed By: #### L 100.0100, L500.2500 ####[facility] [facility] [address] [place], [address] CO2 [Moles/Vol] 34.0 mmol/L High 21.0-32.0 [facility] Comment on above: Performed By: #### L 100.0100, L500.2500 ####[facility] [address] [place], [address] Creatinine [Mass/Vol] 1.14 mg/dL Normal 0.70-1.20 [facility] Comment on above: Performed By: #### L 100.0100, L500.2500 ####[facility] [address] [place], [address] ECRCL 35.46 ml/min Low 50-250 [facility] Comment on above: Performed By: #### L 100.0100, L500.2500 ####[facility] [address] [place], [address] GAP 10 Normal 5-15 [facility] Comment on above: Performed By: #### L 100.0100, L500.2500 ####[facility] [address] [place], [address] GFR/1.73 sq M.predicted among non-blacks MDRD (S/P/Bld) [Vol rate/Area] 51 mL/min/{1.73_m2} Low >60 [facility] Comment on above: Result Comment: mL/m in/1.73m2 CKD-EPI Creatinine Equation (2020) Performed By: #### L 100.0100, L500.2500 ####[facility] [address] [place], [address] Glucose [Mass/Vol] 125 mg/dL High 70-99 [facility] Comment on above: Performed By: #### L 100.0100, L500.2500 ####[facility] [address] [place], [address] Potassium [Moles/Vol] 4.0 mmol/L Normal 3.3-5.1 [facility] Comment on above: Performed By: #### L 100.0100, L500.2500 ####[facility] [address] [place], [address] Sodium [Moles/Vol] 139 mmol/L Normal 133-145 [facility] Comment on above: Performed By: #### L 100.0100, L500.2500 ####[facility] [address] [place], [address] Urea nitrogen [Mass/Vol] 29 mg/dL High 4-19 [facility] Comment on above: Performed By: #### L 100.0100, L500.2500 ####[facility] [address] [place], [address] Office Visiton 07-23-2025 Follow-up visit [id number] Estephania Yo 1955 F Date Provider Department Center 07/23/2025 [id number] [facility] None Family History Family Status - Relation Status Age at Mother Notes: brain tumor Father Notes: [place] of arteries Level of Service:90580 [place] OFFICE/OUTPATIENT ESTABLISHED LOW MDM 20 MIN Reason for Visit and Comments: Follow-up [540575] Multiple Sclerosis [162] Results [95] Dizziness [545399] - Normal [facility] Progress Noteon 07-23-2025 Progress Note Visit type: Establis [facility] Patient Reason for Visit: Follow-up, Multiple Sclerosis, Results, and Dizziness (/) Assessment and Plan 1. Multiple sclerosis (HCC) - baclofen (Lioresal) 20 MG tablet; Take 1 tablet (20 mg) by mouth 3 times daily., Starting Estrella 07/23/2025, Normal Subjective HPI: REVIEW- 04/12 - ED at [facility] for MS flare affective speech, swallowing, VOSS. [...] last night for SBP 200's. Was in [facility] for 1 month over June for issues with BP and weakness after having 2 bleeding ulcers and 4 blood transfusions - had PT. She is feeling better since discharge; doing PT at the house. She had MRI brain done at [facility] - I do not have the results [...] Small adult) Pulse (!) 47 Ht 5' 6" (1.676 m) Wt 106 lb (48.1 kg) [...] 04/04/2023 [APTT} FLP: No results found for: "CHLPL", "TRIG", "HDL", "LDLCALC", LDLDIRECT TSH: No results found for: "TSH" VITAMIN B12: No results found for: "DSEBLSDW60" No results found for: "PHENYTOIN", "PHENOBARB", "VALPROATE", "CBMZ" No components found for: TOPIRA @RESULTINGLABINFO@ No results found for: "LEVETIRACETA", "FERRITIN", "CRP", "DENNIS", ANCA No results found for: "CHRISTIANO", "IMMUNOGLOBUL", OLIGOBANDS No results found for: "CSZ92LN", "HEPCAB" No results found for: "CRP", "ANATITER", "ANCA" FERRITIN: No results found for: "FERRITIN" ---- ECG 12 lead SINUS BRADYCARDIA PROBABLE (more content not included)... Normal [facility] Absolute lymphocyte countOrd ered By: Ramírez Onofre on 07-22-2025 Lymphocytes Auto (Unsp spec) [#/Vol] 0.86 10*3/uL 0.83-4.51 [facility] Anion gap in Serum or Plasma Ordered By: Ramírez Onofre on 07-22-2025 Anion gap [Moles/Vol] 10 mmol/L 5-15 [facility] Automated lymphocyte count a s percentage of total leukocytesOrdered By: Ramírez Onofre on 07-22-2025 Lymphocytes/100 WBC Auto (Unsp spec) 12.6 % Low 19-41 [facility] BUN/creatinine ratioOrdered By: Ramírez Onofre on 07-22-2025 Urea nitrogen/Creatinine [Mass ratio] 25.8 mg/mg High 10-20 [facility] Basophil percentageOrdered B y: Ramírez Onofre on 07-22-2025 Basophils/100 WBC (Bld) 0.9 % 0-1 [facility] Brain/Head without Contrasto n 07-22-2025 Brain/Head without Contrast Normal [facility] CBC W/Diff, Automatedon Absolute Lymph 0.86 X10 3/uL Normal 0.83-4.51 [facility] Comment on above: Performed By: #### L 100.0100, L500.2500 ####[facility] [address] [place], [address] Absolute Neut 4.8 X10 3/uL Normal 2.0-7.7 [facility] Comment on above: Performed By: #### L 100.0100, L500.2500 ####[facility] [address] [place], [address] Basophils/100 WBC (Bld) 0.9 % Normal 0-1 [facility] Comment on above: Performed By: #### L 100.0100, L500.2500 ####[facility] [address] [place], [address] Eosinophils/100 WBC (Bld) 5.0 % Normal 0-5 [facility] Comment on above: Performed By: #### L 100.0100, L500.2500 ####[facility] [address] [place], [address] Erythrocyte distribution width (RBC) [Ratio] 18.6 % High 11.6-14.6 [facility] Comment on above: Performed By: #### L 100.0100, L500.2500 ####[facility] [address] [place], [address] Hematocrit (Bld) [Volume fraction] 36.7 % Low 37-47 [facility] Comment on above: Performed By: #### L 100.0100, L500.2500 ####[facility] [address] [place], [address] Hemoglobin (Bld) [Mass/Vol] 11.6 g/dL Low 12.0-15.0 [facility] Comment on above: Performed By: #### L 100.0100, L500.2500 ####[facility] [address] [place], [address] IG% 1.200 High 0.0-0.9 [facility] Comment on above: Result Comment: IG% - Immature Granulocytes (promyelocytes, myelocytes andmetamyelocytes) > 1% indicates that a LEFT SHIFT is Present. Performed By: #### L 100.0100, L500.2500 ####[facility] [address] [place], [address] Lymphocytes/100 WBC (Bld) 12.6 % Low 19-41 [facility] Comment on above: Performed By: #### L 100.0100, L500.2500 ####[facility] [address] [place], [address] MCH (RBC) [Entitic mass] 27.2 pg Normal 27.0-32.0 [facility] Comment on above: Performed By: #### L 100.0100, L500.2500 ####[facility] [address] [place], [address] MCHC (RBC) [Mass/Vol] 31.6 g/dL Low 32-36 [facility] Comment on above: Performed By: #### L 100.0100, L500.2500 ####[facility] [address] [place], [address] MCV (RBC) [Entitic vol] 85.9 fL Normal 81-99 [facility] Comment on above: Performed By: #### L 100.0100, L500.2500 ####[facility] [address] [place], [address] Monocytes/100 WBC (Bld) 9.6 % Normal 0-10 [facility] Comment on above: Performed By: #### L 100.0100, L500.2500 ####[facility] [address] [place], [address] Neutrophils/100 WBC (Bld) 70.7 % High 47-70 [facility] Comment on above: Performed By: #### L 100.0100, L500.2500 ####[facility] [address] [place], [address] Nucleated RBC (Bld) [#/Vol] 0 10*3/uL Normal 0-5 [facility] Comment on above: Performed By: #### L 100.0100, L500.2500 ####[facility] [address] [place], [address] Platelet mean volume (Bld) [Entitic vol] 9.5 fL Normal 6.2-12.0 [facility] Comment on above: Performed By: #### L 100.0100, L500.2500 ####[facility] [address] [place], [address] Platelets (Bld) [#/Vol] 147 10*3/uL Low 150-450 [facility] Comment on above: Performed By: #### L 100.0100, L500.2500 ####[facility] [address] [place], [address] RBC (Bld) [#/Vol] 4.27 10*6/uL Normal 4.2-5.4 [facility] Comment on above: Performed By: #### L 100.0100, L500.2500 ####[facility] [address] [place], [address] RDW SD 59.1 fl High 35.1-43.9 [facility] Comment on above: Performed By: #### L 100.0100, L500.2500 ####[facility] [address] [place], [address] WBC (Bld) [#/Vol] 6.8 10*3/uL Normal 4.4-11.0 [facility] Comment on above: Performed By: #### L 100.0100, L500.2500 ####[facility] [address] [place], [address] Carbon dioxide, total [Moles /volume] in Central venous bloodOrdered By: Ramírez Onofre on 07-22-2025 CO2 [Moles/Vol] 34.0 mmol/L High 21.0-32.0 [facility] Chloride assayOrdered By: Jesse Onofre on 07-22-2025 Chloride [Moles/Vol] 94 mmol/L Low 98-108 [facility] Emergency Department Summary on 07-22-2025 Emergency Department Summary Normal [facility] Eosinophil percentageOrdered By: Ramírez Onofre on 07-22-2025 Eosinophils/100 WBC (Bld) 5.0 % 0-5 [facility] Erythrocyte distribution wid th ratioOrdered By: Ramírez Onofre on 07-22-2025 Erythrocyte distribution width (RBC) [Ratio] 18.6 % High 11.6-14.6 [facility] Erythrocyte distribution wid th standard deviationOrdered By: Ramírez Onofre on 07-22-2025 Erythrocyte distribution width (RBC) [Ratio] 59.1 fl High 35.1-43.9 [facility] Glomerular filtration rate ( GFR) estimation/1.73 sq m using serum, plasma, or whole bOrdered By: Ramírez Onofre on 07-22-2025 GFR/1.73 sq M.predicted among non-blacks MDRD (S/P/Bld) [Vol rate/Area] 51 mL/min/{1.73_m2} Low >60 [facility] Hematocrit Auto (Bld) [Volum e fraction]Ordered By: Ramírez Onofre on 07-22-2025 Hematocrit (Bld) [Volume fraction] 36.7 % Low 37-47 [facility] Hemoglobin measurementOrdere d By: Ramírez Onofre on 07-22-2025 Hemoglobin (Bld) [Mass/Vol] 11.6 g/dL Low 12.0-15.0 [facility] Immature granulocytes/100 WB C Auto (Bld)Ordered By: Ramírez Onofre on 07-22-2025 Immature granulocytes/100 WBC (Bld) 1.200 % High 0.0-0.9 [facility] MCV (mean corpuscular volume ) determinationOrdered By: Ramírez Onofre on 07-22-2025 MCV (RBC) [Entitic vol] 85.9 fL 81-99 [facility] Mean corpuscular hemoglobin (MCH) determinationOrdered By: Ramírez Onofre on 07-22-2025 MCH (RBC) [Entitic mass] 27.2 pg 27.0-32.0 [facility] Monocyte percentageOrdered B y: Ramírez Onofre on 07-22-2025 Monocytes/100 WBC (Bld) 9.6 % 0-10 [facility] Neutrophil percentageOrdered By: Ramírez Onofre on 07-22-2025 Neutrophils/100 WBC (Bld) 70.7 % High 47-70 [facility] Platelet countOrdered By: Jesse Onofre on 07-22-2025 Platelets (Bld) [#/Vol] 147 10*3/uL Low 150-450 [facility] Potassium measurement (mass/ volume)Ordered By: Ramírez Onofre on 07-22-2025 Potassium (Unsp spec) [Mass/Vol] 4.0 mmol/L 3.3-5.1 [facility] RBC Auto (Bld) [#/Vol]Ordere d By: Ramírez Onofre on 07-22-2025 RBC (Bld) [#/Vol] 4.27 10*6/uL 4.2-5.4 [facility] Serum creatinine measurement (mass/volume)Ordered By: Ramírez Onofre on 07-22-2025 Creatinine [Mass/Vol] 1.14 mg/dL 0.70-1.20 [facility] Serum glucose measurement (m ass/volume)Ordered By: Ramírez Onofre on 07-22-2025 Glucose [Mass/Vol] 125 mg/dL High 70-99 [facility] Serum or plasma calcium stefania urement (mass/volume)Ordered By: Ramírez Onofre on 07-22-2025 Calcium [Mass/Vol] 9.4 mg/dL 7.6-11.0 [facility] Serum or plasma urea nitroge n measurement (mass/volume)Ordered By: Ramírez Onofre on 07-22-2025 Urea nitrogen [Mass/Vol] 29 mg/dL High 4-19 [facility] Sodium levelOrdered By: Ramírez Onofre on 07-22-2025 Sodium [Moles/Vol] 139 mmol/L 133-145 [facility] White blood cell (WBC) count Ordered By: Ramírez Onofre on 07-22-2025 WBC (Bld) [#/Vol] 6.8 10*3/uL 4.4-11.0 [facility] Brain/Head without Contrasto n 08-17-2025 Brain/Head without Contrast Normal [facility] Emergency Department Summary on 07-05-2025 Emergency Department Summary Normal [facility] Absolute lymphocyte countOrd ered By: Lucas Wyatt on 06-24-2025 Lymphocytes Auto (Unsp spec) [#/Vol] 0.91 10*3/uL 0.83-4.51 [facility] Anion gap in Serum or Plasma Ordered By: Lucas Wyatt on 06-24-2025 Anion gap [Moles/Vol] 9 mmol/L 5-15 [facility] Automated lymphocyte count a s percentage of total leukocytesOrdered By: Lucas Wyatt on 06-24-2025 Lymphocytes/100 WBC Auto (Unsp spec) 16.2 % Low 19-41 [facility] BUN/creatinine ratioOrdered By: Lucas Wyatt on 06-24-2025 Urea nitrogen/Creatinine [Mass ratio] 30.0 mg/mg High 10-20 [facility] Basophil percentageOrdered B y: Lucas Wyatt on 06-24-2025 Basophils/100 WBC (Bld) 0.9 % 0-1 [facility] Blood polychromasia detectio n by light microscopyOrdered By: Lucas Wyatt on 06-24-2025 Polychromasia LM Ql (Bld) 1+ [facility] Carbon dioxide, total [Moles /volume] in Central venous bloodOrdered By: Lucas Wyatt on 06-24-2025 CO2 [Moles/Vol] 35.3 mmol/L High 21.0-32.0 [facility] Chloride assayOrdered By: David yWatt on 06-24-2025 Chloride [Moles/Vol] 96 mmol/L Low 98-108 [facility] Eosinophil percentageOrdered By: Lucas Wyatt on 06-24-2025 Eosinophils/100 WBC (Bld) 5.3 % High 0-5 [facility] Erythrocyte distribution wid th ratioOrdered By: Lucas Wyatt on 06-24-2025 Erythrocyte distribution width (RBC) [Ratio] 20.4 % High 11.6-14.6 [facility] Erythrocyte distribution wid th standard deviationOrdered By: Lucas Wyatt on 06-24-2025 Erythrocyte distribution width (RBC) [Ratio] 63.2 fl High 35.1-43.9 [facility] Glomerular filtration rate ( GFR) estimation/1.73 sq m using serum, plasma, or whole bOrdered By: Lucas Wyatt on 06-24-2025 GFR/1.73 sq M.predicted among non-blacks MDRD (S/P/Bld) [Vol rate/Area] 57 mL/min/{1.73_m2} Low >60 [facility] Hematocrit Auto (Bld) [Volum e fraction]Ordered By: Lucas Wyatt on 06-24-2025 Hematocrit (Bld) [Volume fraction] 32.0 % Low 37-47 [facility] Hemoglobin measurementOrdere d By: Lucas Wyatt on 06-24-2025 Hemoglobin (Bld) [Mass/Vol] 9.7 g/dL Low 12.0-15.0 [facility] Immature granulocytes/100 WB C Auto (Bld)Ordered By: Lucas Wyatt on 06-24-2025 Immature granulocytes/100 WBC (Bld) 0.500 % 0.0-0.9 [facility] MCV (mean corpuscular volume ) determinationOrdered By: Lucas Wyatt on 06-24-2025 MCV (RBC) [Entitic vol] 85.8 fL 81-99 [facility] Mean corpuscular hemoglobin (MCH) determinationOrdered By: Lucas Wyatt on 06-24-2025 MCH (RBC) [Entitic mass] 26.0 pg Low 27.0-32.0 [facility] Monocyte percentageOrdered B y: Lucas Wyatt on 06-24-2025 Monocytes/100 WBC (Bld) 14.4 % High 0-10 [facility] Neutrophil percentageOrdered By: Lucas Wyatt on 06-24-2025 Neutrophils/100 WBC (Bld) 62.7 % 47-70 [facility] No Panel InformationOrdered By: randalnew viennayo Wyatt on 06-24-2025 1+ [facility] Ovalocyte detectionOrdered B y: Lucas Wyatt on 06-24-2025 Ovalocytes LM Ql (Bld) 1+ [facility] Platelet countOrdered By: David ray Wyatt on 06-24-2025 Platelets (Bld) [#/Vol] 225 10*3/uL 150-450 [facility] Platelet estimateOrdered By: Lucas Aamirjorge on 06-24-2025 Platelets LM Ql (Bld) ADEQUATE ADEQ [facility] Potassium measurement (mass/ volume)Ordered By: Davidrandalcarmenyo Rutledgenaveedmarcelle on 06-24-2025 Potassium (Unsp spec) [Mass/Vol] 3.9 mmol/L 3.3-5.1 [facility] RBC Auto (Bld) [#/Vol]Ordere d By: Lucas Aamirjorge on 06-24-2025 RBC (Bld) [#/Vol] 3.73 10*6/uL Low 4.2-5.4 [facility] Serum creatinine measurement (mass/volume)Ordered By: Davidrandalcarmenyo Rutledgenaveedmarcelle on 06-24-2025 Creatinine [Mass/Vol] 1.05 mg/dL 0.70-1.20 [facility] Serum glucose measurement (m ass/volume)Ordered By: Davidrandalcarmenyo Rutledgenaveedmarcelle on 06-24-2025 Glucose [Mass/Vol] 81 mg/dL 70-99 [facility] Serum or plasma calcium stefania urement (mass/volume)Ordered By: Davidrandalcarmenyo Rutledgenaveedmarcelle on 06-24-2025 Calcium [Mass/Vol] 9.3 mg/dL 7.6-11.0 [facility] Serum or plasma urea nitroge n measurement (mass/volume)Ordered By: Davidray Rutledgenaveedmarcelle on 06-24-2025 Urea nitrogen [Mass/Vol] 32 mg/dL High 4-19 [facility] Sodium levelOrdered By: Karri oliver Aamirnaveedmarcelle on 06-24-2025 Sodium [Moles/Vol] 141 mmol/L 133-145 [facility] White blood cell (WBC) count Ordered By: Davidrandalcarmenyo Rutledgenaveedmarcelle on 06-24-2025 WBC (Bld) [#/Vol] 5.6 10*3/uL 4.4-11.0 [facility] Absolute lymphocyte countOrd ered By: Davidrandalbenito Aamirnaveedmarcelle on 06-17-2025 Lymphocytes Auto (Unsp spec) [#/Vol] 0.91 10*3/uL 0.83-4.51 [facility] Anion gap in Serum or Plasma Ordered By: Lucas Wyatt on 06-17-2025 Anion gap [Moles/Vol] 9 mmol/L 5-15 [facility] Automated lymphocyte count a s percentage of total leukocytesOrdered By: Lucas Wyatt on 06-17-2025 Lymphocytes/100 WBC Auto (Unsp spec) 13.6 % Low 19-41 [facility] BUN/creatinine ratioOrdered By: Lucas Rutledgenaveedmarcelle on 06-17-2025 Urea nitrogen/Creatinine [Mass ratio] 28.7 mg/mg High 10-20 [facility] Basophil percentageOrdered B y: Lucas Wyatt on 06-17-2025 Basophils/100 WBC (Bld) 0.6 % 0-1 [facility] Carbon dioxide, total [Moles /volume] in Central venous bloodOrdered By: randalnew viennayo Wyatt on 06-17-2025 CO2 [Moles/Vol] 35.8 mmol/L High 21.0-32.0 [facility] Chloride assayOrdered By: David randalbenito Wyatt on 06-17-2025 Chloride [Moles/Vol] 93 mmol/L Low 98-108 [facility] Eosinophil percentageOrdered By: ray Rutledgenaveedmarcelle on 06-17-2025 Eosinophils/100 WBC (Bld) 2.8 % 0-5 [facility] Erythrocyte distribution wid th ratioOrdered By: ray Wyatt on 06-17-2025 Erythrocyte distribution width (RBC) [Ratio] 19.1 % High 11.6-14.6 [facility] Erythrocyte distribution wid th standard deviationOrdered By: [facility] Rutledgenaveedmarcelle on 06-17-2025 Erythrocyte distribution width (RBC) [Ratio] 58.8 fl High 35.1-43.9 [facility] Glomerular filtration rate ( GFR) estimation/1.73 sq m using serum, plasma, or whole bOrdered By: Lucas Rutledgejorge on 06-17-2025 GFR/1.73 sq M.predicted among non-blacks MDRD (S/P/Bld) [Vol rate/Area] 58 mL/min/{1.73_m2} Low >60 [facility] Hematocrit Auto (Bld) [Volum e fraction]Ordered By: Karricarmenyo Rutledgenaveedmarcelle on 06-17-2025 Hematocrit (Bld) [Volume fraction] 32.0 % Low 37-47 [facility] Hemoglobin measurementOrdere d By: Lucas Aamirjorge on 06-17-2025 Hemoglobin (Bld) [Mass/Vol] 9.6 g/dL Low 12.0-15.0 [facility] Immature granulocytes/100 WB C Auto (Bld)Ordered By: Davidrandalcarmenyo Rutledgenaveedmarcelle on 06-17-2025 Immature granulocytes/100 WBC (Bld) 0.600 % 0.0-0.9 [facility] MCV (mean corpuscular volume ) determinationOrdered By: Lucas Rutledgenaveedmarcelle on 06-17-2025 MCV (RBC) [Entitic vol] 85.1 fL 81-99 [facility] Mean corpuscular hemoglobin (MCH) determinationOrdered By: Davidrandalcarmenyo Rutledgenaveedmarcelle on 06-17-2025 MCH (RBC) [Entitic mass] 25.5 pg Low 27.0-32.0 [facility] Monocyte percentageOrdered B y: Davidrandalcarmenyo Rutledgenaveedmarcelle on 06-17-2025 Monocytes/100 WBC (Bld) 12.7 % High 0-10 [facility] Neutrophil percentageOrdered By: Davidrandalcarmenyo Rutledgenaveedmarcelle on 06-17-2025 Neutrophils/100 WBC (Bld) 69.7 % 47-70 [facility] Platelet countOrdered By: David bell Aamirnaveedmarcelle on 06-17-2025 Platelets (Bld) [#/Vol] 211 10*3/uL 150-450 [facility] Potassium measurement (mass/ volume)Ordered By: Davidrandalcarmenyo Rutledgenaveedmarcelle on 06-17-2025 Potassium (Unsp spec) [Mass/Vol] 3.8 mmol/L 3.3-5.1 [facility] RBC Auto (Bld) [#/Vol]Ordere d By: Evonneyo Rutledgenaveedmarcelle on 06-17-2025 RBC (Bld) [#/Vol] 3.76 10*6/uL Low 4.2-5.4 [facility] Serum creatinine measurement (mass/volume)Ordered By: Lucas Rutledgenaveedmarcelle on 06-17-2025 Creatinine [Mass/Vol] 1.04 mg/dL 0.70-1.20 [facility] Serum glucose measurement (m ass/volume)Ordered By: Lucas Rutledgenaveedmarcelle on 06-17-2025 Glucose [Mass/Vol] 87 mg/dL 70-99 [facility] Serum or plasma calcium stefania urement (mass/volume)Ordered By: Lucas Rutledgenaveedmarcelle on 06-17-2025 Calcium [Mass/Vol] 9.1 mg/dL 7.6-11.0 [facility] Serum or plasma urea nitroge n measurement (mass/volume)Ordered By: Lucas Rutledgenaveedmarcelle on 06-17-2025 Urea nitrogen [Mass/Vol] 30 mg/dL High 4-19 [facility] Sodium levelOrdered By: Karri oliver Aamirnaveedmarcelle on 06-17-2025 Sodium [Moles/Vol] 138 mmol/L 133-145 [facility] White blood cell (WBC) count Ordered By: Lucas Rutledgenaveedmarcelle on 06-17-2025 WBC (Bld) [#/Vol] 6.7 10*3/uL 4.4-11.0 [facility] Absolute lymphocyte countOrd ered By: Lucas Rutledgenaveedmarcelle on 06-10-2025 Lymphocytes Auto (Unsp spec) [#/Vol] 1.52 10*3/uL 0.83-4.51 [facility] Anion gap in Serum or Plasma Ordered By: Lucas Rutledgenaveedmarcelle on 06-10-2025 Anion gap [Moles/Vol] 11 mmol/L 5-15 [facility] Automated lymphocyte count a s percentage of total leukocytesOrdered By: Lucas Rutledgenaveedmarcelle on 06-10-2025 Lymphocytes/100 WBC Auto (Unsp spec) 24.7 % 19-41 [facility] BUN/creatinine ratioOrdered By: Lucas Rutledgenaveedmarcelle on 06-10-2025 Urea nitrogen/Creatinine [Mass ratio] 22.8 mg/mg High 10-20 [facility] Basophil percentageOrdered B y: Lucas Wyatt on 06-10-2025 Basophils/100 WBC (Bld) 1.1 % High 0-1 [facility] Bilirubin, totalOrdered By: Davidrandalbenito Aamirnaveedmarcelle on 06-10-2025 Bilirubin [Mass/Vol] 0.45 mg/dL 0.00-1.30 [facility] Carbon dioxide, total [Moles /volume] in Central venous bloodOrdered By: Davidray Rutledgenaveedmarcelle on 06-10-2025 CO2 [Moles/Vol] 30.2 mmol/L 21.0-32.0 [facility] Chloride assayOrdered By: David ray Aamirnaveedmarcelle on 06-10-2025 Chloride [Moles/Vol] 96 mmol/L Low 98-108 [facility] Eosinophil percentageOrdered By: Davidrandalnew viennayo Aamirnaveedmarcelle on 06-10-2025 Eosinophils/100 WBC (Bld) 5.8 % High 0-5 [facility] Erythrocyte distribution wid th ratioOrdered By: [facility] Aamirnaveedmarcelle on 06-10-2025 Erythrocyte distribution width (RBC) [Ratio] 19.4 % High 11.6-14.6 [facility] Erythrocyte distribution wid th standard deviationOrdered By: Davidrandalbenito Aamirnaveedmarcelle on 06-10-2025 Erythrocyte distribution width (RBC) [Ratio] 59.2 fl High 35.1-43.9 [facility] Glomerular filtration rate ( GFR) estimation/1.73 sq m using serum, plasma, or whole bOrdered By: Karricarmenyo Rutledgenaveedmarcelle on 06-10-2025 GFR/1.73 sq M.predicted among non-blacks MDRD (S/P/Bld) [Vol rate/Area] 53 mL/min/{1.73_m2} Low >60 [facility] Hematocrit Auto (Bld) [Volum e fraction]Ordered By: Lucas Wyatt on 06-10-2025 Hematocrit (Bld) [Volume fraction] 30.1 % Low 37-47 [facility] Hemoglobin measurementOrdere d By: Lucas Wyatt on 06-10-2025 Hemoglobin (Bld) [Mass/Vol] 9.3 g/dL Low 12.0-15.0 [facility] Immature granulocytes/100 WB C Auto (Bld)Ordered By: Lucas Wyatt on 06-10-2025 Immature granulocytes/100 WBC (Bld) 0.500 % 0.0-0.9 [facility] MCV (mean corpuscular volume ) determinationOrdered By: Lucas Wyatt on 06-10-2025 MCV (RBC) [Entitic vol] 83.1 fL 81-99 [facility] Mean corpuscular hemoglobin (MCH) determinationOrdered By: Lucas Wyatt on 06-10-2025 MCH (RBC) [Entitic mass] 25.7 pg Low 27.0-32.0 [facility] Monocyte percentageOrdered B y: Lucas Wyatt on 06-10-2025 Monocytes/100 WBC (Bld) 10.1 % High 0-10 [facility] Neutrophil percentageOrdered By: Lucas Wyatt on 06-10-2025 Neutrophils/100 WBC (Bld) 57.8 % 47-70 [facility] No Panel InformationOrdered By: ray Wyatt on 06-10-2025 18 U/L <32 [facility] Platelet countOrdered By: David Wyatt on 06-10-2025 Platelets (Bld) [#/Vol] 148 10*3/uL Low 150-450 [facility] Potassium measurement (mass/ volume)Ordered By: Lucas Wyatt on 06-10-2025 Potassium (Unsp spec) [Mass/Vol] 3.9 mmol/L 3.3-5.1 [facility] RBC Auto (Bld) [#/Vol]Ordere d By: Lucas Wyatt on 06-10-2025 RBC (Bld) [#/Vol] 3.62 10*6/uL Low 4.2-5.4 [facility] Serum creatinine measurement (mass/volume)Ordered By: Lucas Wyatt on 06-10-2025 Creatinine [Mass/Vol] 1.11 mg/dL 0.70-1.20 [facility] Serum globulin measurementOr dered By: Lucas Wyatt on 06-10-2025 Globulin (S) [Mass/Vol] 2.1 g/dL Low 2.2-4.2 [facility] Serum glucose measurement (m ass/volume)Ordered By: Lucas Wyatt on 06-10-2025 Glucose [Mass/Vol] 102 mg/dL High 70-99 [facility] Serum or plasma alanine pizarro otransferase (ALT) measurementOrdered By: Lucas Wyatt on 06-10-2025 ALT [Catalytic activity/Vol] 18 U/L <35 [facility] Serum or plasma albumin stefania urement (mass/volume)Ordered By: Lucas Wyatt on 06-10-2025 Albumin [Mass/Vol] 3.6 g/dL 3.4-4.8 [facility] Serum or plasma albumin/glob ulin mass ratioOrdered By: Lucas Wyatt on 06-10-2025 Albumin/Globulin [Mass ratio] 1.7 {ratio} 0.9-2.4 [facility] Serum or plasma alkaline anthony sphatase measurementOrdered By: Lucas Wyatt on 06-10-2025 ALP [Catalytic activity/Vol] 125 U/L High 35-104 [facility] Serum or plasma calcium stefania urement (mass/volume)Ordered By: Lucas Wyatt on 06-10-2025 Calcium [Mass/Vol] 8.5 mg/dL 7.6-11.0 [facility] Serum or plasma urea nitroge n measurement (mass/volume)Ordered By: Lucas Wyatt on 06-10-2025 Urea nitrogen [Mass/Vol] 25 mg/dL High 4-19 [facility] Sodium levelOrdered By: Karri Wyatt on 06-10-2025 Sodium [Moles/Vol] 138 mmol/L 133-145 [facility] Total proteinOrdered By: Amandeep Wyatt on 06-10-2025 Protein [Mass/Vol] 5.7 g/dL Low 5.9-8.4 [facility] White blood cell (WBC) count Ordered By: Lucas Wyatt 06-10-2025 WBC (Bld) [#/Vol] 6.2 10*3/uL 4.4-11.0 [facility] HH, Hemoglobin AND Hematocri ton 06-09-2025 Hematocrit (Bld) [Volume fraction] 26.7 % Low 37-47 [facility] Comment on above: Performed By: #### L 100.0600 ####[facility] [address] [place], [place], [phone] Hemoglobin (Bld) [Mass/Vol] 8.2 g/dL Low 12.0-15.0 [facility] Comment on above: Performed By: #### L 100.0600 ####[facility] [address] [facility], [address] Hematocrit Auto (Bld) [Volum e fraction]Ordered By: Dex Worrell on 06-09-2025 Hematocrit (Bld) [Volume fraction] 26.7 % Low 37-47 [facility] Hemoglobin measurementOrdere d By: Dex Worrell on 06-09-2025 Hemoglobin (Bld) [Mass/Vol] 8.2 g/dL Low 12.0-15.0 [facility] Absolute lymphocyte countOrd ered By: Roman Mckeon on 06-08-2025 Lymphocytes Auto (Unsp spec) [#/Vol] 0.55 10*3/uL Low 0.83-4.51 [facility] Anion gap in Serum or Plasma Ordered By: Roman Mckeon on 06-08-2025 Anion gap [Moles/Vol] 10 mmol/L 04-02 [facility] Automated lymphocyte count a s percentage of total leukocytesOrdered By: Roman Mckeon on 06-08-2025 Lymphocytes/100 WBC Auto (Unsp spec) 5.5 % Low 19-41 [facility] BUN/creatinine ratioOrdered By: Roman Mckeon on 06-08-2025 Urea nitrogen/Creatinine [Mass ratio] 12.1 mg/mg 09-07 [facility] Basic Metabolic Profile (BMP )on 06-08-2025 BUN/CRE 12.1 RATIO Normal 09-07 [facility] Comment on above: Performed By: #### L 100.0100, L500.2500 ####[facility] [address] [place], [address] Calcium [Mass/Vol] 9.0 mg/dL Normal 7.6-11.0 [facility] Comment on above: Performed By: #### L 100.0100, L500.2500 ####[facility] [address] [place], [address] Chloride [Moles/Vol] 106 mmol/L Normal 98-108 [facility] Comment on above: Performed By: #### L 100.0100, L500.2500 ####[facility] [address] [place], [address] CO2 [Moles/Vol] 25.4 mmol/L Normal 21.0-32.0 [facility] Comment on above: Performed By: #### L 100.0100, L500.2500 ####[facility] [address] [place], [address] Creatinine [Mass/Vol] 1.04 mg/dL Normal 0.70-1.20 [facility] Comment on above: Performed By: #### L 100.0100, L500.2500 ####[facility] [address] [place], [address] ECRCL 41.12 ml/min Low 50-250 [facility] Comment on above: Performed By: #### L 100.0100, L500.2500 ####[facility] [address] [place], [address] GAP 10 Normal 5-15 [facility] Comment on above: Performed By: #### L 100.0100, L500.2500 ####[facility] [address] [place], [address] GFR/1.73 sq M.predicted among non-blacks MDRD (S/P/Bld) [Vol rate/Area] 58 mL/min/{1.73_m2} Low >60 [facility] Comment on above: Result Comment: mL/m in/1.73m2 CKD-EPI Creatinine Equation (2020) Performed By: #### L 100.0100, L500.2500 ####[facility] [address] [place], [address] Glucose [Mass/Vol] 157 mg/dL High 70-99 [facility] Comment on above: Performed By: #### L 100.0100, L500.2500 ####[facility] [address] [place], [address] Potassium [Moles/Vol] 4.4 mmol/L Normal 3.3-5.1 [facility] Comment on above: Performed By: #### L 100.0100, L500.2500 ####[facility] [address] [place], [address] Sodium [Moles/Vol] 141 mmol/L Normal 133-145 [facility] Comment on above: Performed By: #### L 100.0100, L500.2500 ####[facility] [address] [place], [address] Urea nitrogen [Mass/Vol] 13 mg/dL Normal 4-19 [facility] Comment on above: Performed By: #### L 100.0100, L500.2500 ####[facility] [address] [place], [address] Basophil percentageOrdered B y: Roman Mckeon on 06-08-2025 Basophils/100 WBC (Bld) 0.5 % 0-1 [facility] CBC W/Diff, Automatedon 05-20 Absolute Lymph 0.55 X10 3/uL Low 0.83-4.51 [facility] Comment on above: Performed By: #### L 100.0100, L500.2500 ####[facility] [address] [place], [address] Absolute Neut 8.8 X10 3/uL High 2.0-7.7 [facility] Comment on above: Performed By: #### L 100.0100, L500.2500 ####[facility] [address] [place], [address] Basophils/100 WBC (Bld) 0.5 % Normal 0-1 [facility] Comment on above: Performed By: #### L 100.0100, L500.2500 ####[facility] [address] [place], [address] Eosinophils/100 WBC (Bld) 1.4 % Normal 0-5 [facility] Comment on above: Performed By: #### L 100.0100, L500.2500 ####[facility] [address] [place], [address] Erythrocyte distribution width (RBC) [Ratio] 18.8 % High 11.6-14.6 [facility] Comment on above: Performed By: #### L 100.0100, L500.2500 ####[facility] [address] [place], [address] Hematocrit (Bld) [Volume fraction] 29.5 % Low 37-47 [facility] Comment on above: Performed By: #### L 100.0100, L500.2500 ####[facility] [address] [place], [address] Hemoglobin (Bld) [Mass/Vol] 9.0 g/dL Low 12.0-15.0 [facility] Comment on above: Performed By: #### L 100.0100, L500.2500 ####[facility] [address] [place], [address] IG% 0.500 Normal 0.0-0.9 [facility] Comment on above: Result Comment: IG% - Immature Granulocytes (promyelocytes, myelocytes andmetamyelocytes) > 1% indicates that a LEFT SHIFT is Present. Performed By: #### L 100.0100, L500.2500 ####[facility] [address] [place], [address] Lymphocytes/100 WBC (Bld) 5.5 % Low 19-41 [facility] Comment on above: Performed By: #### L 100.0100, L500.2500 ####[facility] [address] [place], [address] MCH (RBC) [Entitic mass] 26.1 pg Low 27.0-32.0 [facility] Comment on above: Performed By: #### L 100.0100, L500.2500 ####[facility] [address] [place], [address] MCHC (RBC) [Mass/Vol] 30.5 g/dL Low 32-36 [facility] Comment on above: Performed By: #### L 100.0100, L500.2500 ####[facility] [address] [place], [address] MCV (RBC) [Entitic vol] 85.5 fL Normal 81-99 [facility] Comment on above: Performed By: #### L 100.0100, L500.2500 ####[facility] [address] [place], [address] Monocytes/100 WBC (Bld) 5.2 % Normal 0-10 [facility] Comment on above: Performed By: #### L 100.0100, L500.2500 ####[facility] [address] [place], [address] Neutrophils/100 WBC (Bld) 86.9 % High 47-70 [facility] Comment on above: Performed By: #### L 100.0100, L500.2500 ####[facility] [address] [place], [address] Nucleated RBC (Bld) [#/Vol] 0 10*3/uL Normal 0-5 [facility] Comment on above: Performed By: #### L 100.0100, L500.2500 ####[facility] [address] [place], [address] Platelet mean volume (Bld) [Entitic vol] 9.6 fL Normal 6.2-12.0 [facility] Comment on above: Performed By: #### L 100.0100, L500.2500 ####[facility] [address] [place], [address] Platelets (Bld) [#/Vol] 109 10*3/uL Low 150-450 [facility] Comment on above: Performed By: #### L 100.0100, L500.2500 ####[facility] [address] [place], [address] RBC (Bld) [#/Vol] 3.45 10*6/uL Low 4.2-5.4 [facility] Comment on above: Performed By: #### L 100.0100, L500.2500 ####[facility] [address] [place], [address] RDW SD 59.3 fl High 35.1-43.9 [facility] Comment on above: Performed By: #### L 100.0100, L500.2500 ####[facility] [address] [place], [address] WBC (Bld) [#/Vol] 10.1 10*3/uL Normal 4.4-11.0 [facility] Comment on above: Performed By: #### L 100.0100, L500.2500 ####[facility] [address] [place], [address] Carbon dioxide, total [Moles /volume] in Central venous bloodOrdered By: Roman Mckeon on 06-08-2025 CO2 [Moles/Vol] 25.4 mmol/L 21.0-32.0 [facility] Chloride assayOrdered By: Edgar Mckeon on 06-08-2025 Chloride [Moles/Vol] 106 mmol/L 98-108 [facility] Eosinophil percentageOrdered By: Roman Mckeon on 06-08-2025 Eosinophils/100 WBC (Bld) 1.4 % 0-5 [facility] Erythrocyte distribution wid th ratioOrdered By: Roman Mckeon on 06-08-2025 Erythrocyte distribution width (RBC) [Ratio] 18.8 % High 11.6-14.6 [facility] Erythrocyte distribution wid th standard deviationOrdered By: Roman Mckeon on 06-08-2025 Erythrocyte distribution width (RBC) [Ratio] 59.3 fl High 35.1-43.9 [facility] Glomerular filtration rate ( GFR) estimation/1.73 sq m using serum, plasma, or whole bOrdered By: Roman Mckeon on 06-08-2025 GFR/1.73 sq M.predicted among non-blacks MDRD (S/P/Bld) [Vol rate/Area] 58 mL/min/{1.73_m2} Low >60 [facility] Immature granulocytes/100 WB C Auto (Bld)Ordered By: Roman Mckeon on 06-08-2025 Immature granulocytes/100 WBC (Bld) 0.500 % 0.0-0.9 [facility] MCV (mean corpuscular volume ) determinationOrdered By: Roman Mckeon on 06-08-2025 MCV (RBC) [Entitic vol] 85.5 fL 81-99 [facility] Mean corpuscular hemoglobin (MCH) determinationOrdered By: Roman Mckeon on 06-08-2025 MCH (RBC) [Entitic mass] 26.1 pg Low 27.0-32.0 [facility] Monocyte percentageOrdered B y: Roman Mckeon on 06-08-2025 Monocytes/100 WBC (Bld) 5.2 % 0-10 [facility] Neutrophil percentageOrdered By: Roman Mckeon on 06-08-2025 Neutrophils/100 WBC (Bld) 86.9 % High 47-70 [facility] Platelet countOrdered By: Edgar Mckeon on 06-08-2025 Platelets (Bld) [#/Vol] 109 10*3/uL Low 150-450 [facility] Potassium measurement (mass/ volume)Ordered By: Roman Mckeon on 06-08-2025 Potassium (Unsp spec) [Mass/Vol] 4.4 mmol/L 3.3-5.1 [facility] RBC Auto (Bld) [#/Vol]Ordere d By: Roman Mckeon on 06-08-2025 RBC (Bld) [#/Vol] 3.45 10*6/uL Low 4.2-5.4 [facility] Serum creatinine measurement (mass/volume)Ordered By: Roman Mckeon on 06-08-2025 Creatinine [Mass/Vol] 1.04 mg/dL 0.70-1.20 [facility] Serum glucose measurement (m ass/volume)Ordered By: Roman Mckeon on 06-08-2025 Glucose [Mass/Vol] 157 mg/dL High 70-99 [facility] Serum or plasma calcium stefania urement (mass/volume)Ordered By: Roman Mckeon on 06-08-2025 Calcium [Mass/Vol] 9.0 mg/dL 7.6-11.0 [facility] Serum or plasma urea nitroge n measurement (mass/volume)Ordered By: Roman Mckeon on 06-08-2025 Urea nitrogen [Mass/Vol] 13 mg/dL 4-19 [facility] Sodium levelOrdered By: Domingo Mckeon on 06-08-2025 Sodium [Moles/Vol] 141 mmol/L 133-145 [facility] Urine Cultureon 06-08-2025 URC Culture exhibits no growth. Normal [facility] Comment on above: Performed By: #### M 100.2200, L400.0001 ####[facility] [address] [place], [place], [id number] White blood cell (WBC) count Ordered By: Roman Mckeon on 06-08-2025 WBC (Bld) [#/Vol] 10.1 10*3/uL 4.4-11.0 [facility] Basic Metabolic Profile (BMP )on 06-07-2025 BUN/CRE 16.1 RATIO Normal 10-20 [facility] Comment on above: Performed By: #### L 500.2500, L100.0500, L501.5200 ####[facility] [address] [place], [address] Calcium [Mass/Vol] 8.4 mg/dL Normal 7.6-11.0 [facility] Comment on above: Performed By: #### L 500.2500, L100.0500, L501.5200 ####[facility] [address] [place], [address] Chloride [Moles/Vol] 102 mmol/L Normal 98-108 [facility] Comment on above: Performed By: #### L 500.2500, L100.0500, L501.5200 ####[facility] [address] [place], [address] CO2 [Moles/Vol] 27.2 mmol/L Normal 21.0-32.0 [facility] Comment on above: Performed By: #### L 500.2500, L100.0500, L501.5200 ####[facility] [address] [place], [address] Creatinine [Mass/Vol] 0.97 mg/dL Normal 0.70-1.20 [facility] Comment on above: Performed By: #### L 500.2500, L100.0500, L501.5200 ####[facility] [address] [place], [address] ECRCL 42.68 ml/min Low 50-250 [facility] Comment on above: Performed By: #### L 500.2500, L100.0500, L501.5200 ####[facility] [address] [place], [address] GAP 9 Normal 5-15 [facility] Comment on above: Performed By: #### L 500.2500, L100.0500, L501.5200 ####[facility] [address] [place], [address] GFR/1.73 sq M.predicted among non-blacks MDRD (S/P/Bld) [Vol rate/Area] 63 mL/min/{1.73_m2} Normal >60 [facility] Comment on above: Result Comment: mL/m in/1.73m2 CKD-EPI Creatinine Equation (2020) Performed By: #### L 500.2500, L100.0500, L501.5200 ####[facility] [address] [place], [address] Glucose [Mass/Vol] 108 mg/dL High 70-99 [facility] Comment on above: Performed By: #### L 500.2500, L100.0500, L501.5200 ####[facility] [address] [place], [address] Potassium [Moles/Vol] 5.1 mmol/L Normal 3.3-5.1 [facility] Comment on above: Performed By: #### L 500.2500, L100.0500, L501.5200 ####[facility] [address] [place], [address] Sodium [Moles/Vol] 138 mmol/L Normal 133-145 [facility] Comment on above: Performed By: #### L 500.2500, L100.0500, L501.5200 ####[facility] [address] [place], [address] Urea nitrogen [Mass/Vol] 16 mg/dL Normal 4-19 [facility] Comment on above: Performed By: #### L 500.2500, L100.0500, L501.5200 ####[facility] [address] [place], [address] Bilirubin Test strip Ql (U)O rdered By: Roman Mckeon on 06-07-2025 Bilirubin Ql (U) Negative Negative [facility] Brain/Head without Contrasto n 06-07-2025 Brain/Head without Contrast Normal [facility] CBC-Complete Blood Cnt No Di ffon 06-07-2025 Erythrocyte distribution width (RBC) [Ratio] 18.6 % High 11.6-14.6 [facility] Comment on above: Performed By: #### L 500.2500, L100.0500, L501.5200 ####[facility] [address] [place], [address] Hematocrit (Bld) [Volume fraction] 31.7 % Low 37-47 [facility] Comment on above: Performed By: #### L 500.2500, L100.0500, L501.5200 ####[facility] [address] [place], [address] Hemoglobin (Bld) [Mass/Vol] 9.7 g/dL Low 12.0-15.0 [facility] Comment on above: Performed By: #### L 500.2500, L100.0500, L501.5200 ####[facility] [address] [place], [address] MCH (RBC) [Entitic mass] 25.7 pg Low 27.0-32.0 [facility] Comment on above: Performed By: #### L 500.2500, L100.0500, L501.5200 ####[facility] [address] [place], [address] MCHC (RBC) [Mass/Vol] 30.6 g/dL Low 32-36 [facility] Comment on above: Performed By: #### L 500.2500, L100.0500, L501.5200 ####[facility] [address] [place], [address] MCV (RBC) [Entitic vol] 84.1 fL Normal 81-99 [facility] Comment on above: Performed By: #### L 500.2500, L100.0500, L501.5200 ####[facility] [address] [place], [address] Platelet mean volume (Bld) [Entitic vol] 9.2 fL Normal 6.2-12.0 [facility] Comment on above: Performed By: #### L 500.2500, L100.0500, L501.5200 ####[facility] [address] [place], [address] Platelets (Bld) [#/Vol] 134 10*3/uL Low 150-450 [facility] Comment on above: Performed By: #### L 500.2500, L100.0500, L501.5200 ####[facility] [address] [place], [address] RBC (Bld) [#/Vol] 3.77 10*6/uL Low 4.2-5.4 [facility] Comment on above: Performed By: #### L 500.2500, L100.0500, L501.5200 ####[facility] [address] [place], [address] RDW SD 57.4 fl High 35.1-43.9 [facility] Comment on above: Performed By: #### L 500.2500, L100.0500, L501.5200 ####[facility] [address] [place], [address] WBC (Bld) [#/Vol] 8.1 10*3/uL Normal 4.4-11.0 [facility] Comment on above: Performed By: #### L 500.2500, L100.0500, L501.5200 ####[facility] [address] [place], [address] Chest without Contraston Chest without Contrast Normal [facility] Hyaline casts LM.LPF (Urine sed) [#/Area]Ordered By: Roman Mckeon on 06-07-2025 Hyaline casts (Urine sed) [#/Area] 0 /[LPF] 0-5 [facility] Ketones Test strip Ql (U)Ord ered By: Roman Mckeon on 06-07-2025 Ketones Ql (U) Negative Negative [facility] Magnesiumon 06-07-2025 Magnesium [Mass/Vol] 1.8 mg/dL Normal 1.5-2.2 [facility] Comment on above: Performed By: #### L 500.2500, L100.0500, L501.5200 ####[facility] [address] [place], [place], [id number] Magnesium measurement (mass/ volume)Ordered By: Roman Mckeon on 06-07-2025 Magnesium (Unsp spec) [Mass/Vol] 1.8 mg/dL 1.5-2.2 [facility] Mucus LM Ql (Urine sed)Order ed By: Roman Mckeon on 06-07-2025 Mucus Ql (Urine sed) RARE /hpf [facility] Nitrite Test strip Ql (U)Ord ered By: Roman Mckeon on 06-07-2025 Nitrite Ql (U) Negative Negative [facility] Phosphoruson 06-07-2025 Phosphate [Mass/Vol] 2.6 mg/dL Low 2.7-4.5 [facility] Comment on above: Performed By: #### L 501.2300 ####[facility] [address] [place], [place], [id number] Protein Test strip Ql (U)Ord ered By: Roman Mckeon on 06-07-2025 Protein Ql (U) 15 mg/dl High Negative [facility] Squamous epithelial cells de tection in urine sediment by light microscopyOrdered By: Roman Mckeon on 06-07-2025 Epithelial cells.squamous LM Ql (Urine sed) 0-5 SEEN /hpf 5-10 [facility] Urinalysis, Completeon 06-07 CAST,HYALINE 0-5 SEEN Normal 0-5 [facility] Comment on above: Order Comment: GABY TER SPECIMEN Performed By: #### M 100.2200, L400.0001 ####[facility] [address] [place], [address] EPI,SQUAMOUS 0-5 SEEN Normal 5-10 [facility] Comment on above: Order Comment: GABY TER SPECIMEN Performed By: #### M 100.2200, L400.0001 ####[facility] [address] [place], [address] Mucus Ql (Urine sed) RARE Normal [facility] Comment on above: Order Comment: GABY TER SPECIMEN Performed By: #### M 100.2200, L400.0001 ####[facility] [address] [place], [address] WBC 0-5 SEEN Normal 0-5 [facility] Comment on above: Order Comment: GABY TER SPECIMEN Performed By: #### M 100.2200, L400.0001 ####[facility] [address] [place], [address] BACTERIA 0 SEEN Normal None Seen [facility] Comment on above: Order Comment: GABY TER SPECIMEN Performed By: #### M 100.2200, L400.0001 ####[facility] [address] [place], [address] RBC 0 SEEN Normal 0-5 [facility] Comment on above: Order Comment: GABY TER SPECIMEN Performed By: #### M 100.2200, L400.0001 ####[facility] [address] [place], [address] Urine clarityOrdered By: Tripp Mckeon on 06-07-2025 Clarity (U) Clear Clear [facility] [facility] color determinationOrd ered By: Roman Mckeon on 06-07-2025 Color (U) Yellow Yellow [facility] Urine cultureOrdered By: Tripp Mckeon on 06-07-2025 Bacteria identified Cx Nom (U) Culture exhibits no growth. [facility] Bacteria identified Cx Nom (U) Culture exhibits no growth. [facility] Urine glucose detectionOrder ed By: Roman Mckeon on 06-07-2025 Glucose Ql (U) Normal mg/dl Normal [facility] Urine leukocyte esterase det ection by dipstickOrdered By: Roman Mckeon on 06-07-2025 Leukocyte esterase Test strip Ql (U) Negative Negative [facility] Urine pHOrdered By: Roman kapoor on 06-07-2025 pH (U) 7.0 [pH] 5.0 - 8.0 [facility] Urine sediment bacteria coun t by microscopy (number/high power field)Ordered By: Roman Mckeon on 06-07-2025 Bacteria LM.HPF (Urine sed) [#/Area] 0 /[HPF] None Seen [facility] Urine specific gravity measu rementOrdered By: Roman Mckeon on 06-07-2025 Specific gravity (U) [Rel density] 1.005 1.002-1.03 0 [facility] Urine urobilinogen measureme ntOrdered By: Roman Mckeon on 06-07-2025 Urobilinogen Ql (U) Normal mg/dl Normal [facility] White blood cell countOrdere d By: Roman Mckeon on 06-07-2025 White blood cell count 0-5 SEEN /hpf 0-5 [facility] Basic Metabolic Profile (BMP )on 06-06-2025 BUN/CRE 13.9 RATIO Normal 10-20 [facility] Comment on above: Performed By: #### L 500.2500, L100.0100 ####[facility] [address] [place], [place], [id number] Calcium [Mass/Vol] 7.9 mg/dL Normal 7.6-11.0 [facility] Comment on above: Performed By: #### L 500.2500, L100.0100 ####[facility] [address] [place], [address] Chloride [Moles/Vol] 104 mmol/L Normal 98-108 [facility] Comment on above: Performed By: #### L 500.2500, L100.0100 ####[facility] [address] [place], [address] CO2 [Moles/Vol] 26.1 mmol/L Normal 21.0-32.0 [facility] Comment on above: Performed By: #### L 500.2500, L100.0100 ####[facility] [address] [place], [address] Creatinine [Mass/Vol] 0.99 mg/dL Normal 0.70-1.20 [facility] Comment on above: Performed By: #### L 500.2500, L100.0100 ####[facility] [address] [place], [address] ECRCL 40.15 ml/min Low 50-250 [facility] Comment on above: Performed By: #### L 500.2500, L100.0100 ####[facility] [address] [place], [address] GAP 9 Normal 5-15 [facility] Comment on above: Performed By: #### L 500.2500, L100.0100 ####[facility] [address] [place], [address] GFR/1.73 sq M.predicted among non-blacks MDRD (S/P/Bld) [Vol rate/Area] 61 mL/min/{1.73_m2} Normal >60 [facility] Comment on above: Result Comment: mL/m in/1.73m2 CKD-EPI Creatinine Equation (2020) Performed By: #### L 500.2500, L100.0100 ####[facility] [address] [place], [address] Glucose [Mass/Vol] 84 mg/dL Normal 70-99 [facility] Comment on above: Performed By: #### L 500.2500, L100.0100 ####[facility] [address] [place], [address] Potassium [Moles/Vol] 3.3 mmol/L Normal 3.3-5.1 [facility] Comment on above: Performed By: #### L 500.2500, L100.0100 ####[facility] [address] [place], [address] Sodium [Moles/Vol] 139 mmol/L Normal 133-145 [facility] Comment on above: Performed By: #### L 500.2500, L100.0100 ####[facility] [address] [place], [address] Urea nitrogen [Mass/Vol] 14 mg/dL Normal 4-19 [facility] Comment on above: Performed By: #### L 500.2500, L100.0100 ####[facility] [address] [place], [address] CBC W/Diff, Automatedon 07-11 27-2024 Absolute Lymph 1.30 X10 3/uL Normal 0.83-4.51 [facility] Comment on above: Performed By: #### L 500.2500, L100.0100 ####[facility] [address] [place], [address] Absolute Neut 4.5 X10 3/uL Normal 2.0-7.7 [facility] Comment on above: Performed By: #### L 500.2500, L100.0100 ####[facility] [address] [place], [address] Basophils/100 WBC (Bld) 1.0 % Normal 0-1 [facility] Comment on above: Performed By: #### L 500.2500, L100.0100 ####[facility] [address] [place], [address] Eosinophils/100 WBC (Bld) 3.4 % Normal 0-5 [facility] Comment on above: Performed By: #### L 500.2500, L100.0100 ####[facility] [address] [place], [address] Erythrocyte distribution width (RBC) [Ratio] 18.3 % High 11.6-14.6 [facility] Comment on above: Performed By: #### L 500.2500, L100.0100 ####[facility] [address] [place], [address] Hematocrit (Bld) [Volume fraction] 26.8 % Low 37-47 [facility] Comment on above: Performed By: #### L 500.2500, L100.0100 ####[facility] [address] [place], [address] Hemoglobin (Bld) [Mass/Vol] 8.4 g/dL Low 12.0-15.0 [facility] Comment on above: Performed By: #### L 500.2500, L100.0100 ####[facility] [address] [place], [address] IG% 0.600 Normal 0.0-0.9 [facility] Comment on above: Result Comment: IG% - Immature Granulocytes (promyelocytes, myelocytes andmetamyelocytes) > 1% indicates that a LEFT SHIFT is Present. Performed By: #### L 500.2500, L100.0100 ####[facility] [address] [place], [address] Lymphocytes/100 WBC (Bld) 19.0 % Normal 19-41 [facility] Comment on above: Performed By: #### L 500.2500, L100.0100 ####[facility] [address] [place], [address] MCH (RBC) [Entitic mass] 25.8 pg Low 27.0-32.0 [facility] Comment on above: Performed By: #### L 500.2500, L100.0100 ####[facility] [address] [place], [address] MCHC (RBC) [Mass/Vol] 31.3 g/dL Low 32-36 [facility] Comment on above: Performed By: #### L 500.2500, L100.0100 ####[facility] [address] [place], [address] MCV (RBC) [Entitic vol] 82.2 fL Normal 81-99 [facility] Comment on above: Performed By: #### L 500.2500, L100.0100 ####[facility] [address] [place], [address] Monocytes/100 WBC (Bld) 10.7 % High 0-10 [facility] Comment on above: Performed By: #### L 500.2500, L100.0100 ####[facility] [address] [place], [address] Neutrophils/100 WBC (Bld) 65.3 % Normal 47-70 [facility] Comment on above: Performed By: #### L 500.2500, L100.0100 ####[facility] [address] [place], [address] Nucleated RBC (Bld) [#/Vol] 0 10*3/uL Normal 0-5 [facility] Comment on above: Performed By: #### L 500.2500, L100.0100 ####[facility] [address] [place], [address] Platelet mean volume (Bld) [Entitic vol] 10.2 fL Normal 6.2-12.0 [facility] Comment on above: Performed By: #### L 500.2500, L100.0100 ####[facility] [address] [place], [address] Platelets (Bld) [#/Vol] 122 10*3/uL Low 150-450 [facility] Comment on above: Performed By: #### L 500.2500, L100.0100 ####[facility] [address] [place], [address] RBC (Bld) [#/Vol] 3.26 10*6/uL Low 4.2-5.4 [facility] Comment on above: Performed By: #### L 500.2500, L100.0100 ####[facility] [address] [place], [address] RDW SD 54.3 fl High 35.1-43.9 [facility] Comment on above: Performed By: #### L 500.2500, L100.0100 ####[facility] [address] [place], [address] WBC (Bld) [#/Vol] 6.9 10*3/uL Normal 4.4-11.0 [facility] Comment on above: Performed By: #### L 500.2500, L100.0100 ####[facility] [address] [place], [address] Basic Metabolic Profile (BMP )on 06-05-2025 BUN/CRE 13.2 RATIO Normal 10-20 [facility] Comment on above: Performed By: #### L 500.2500, L100.0100 ####[facility] [address] [place], [address] Calcium [Mass/Vol] 7.9 mg/dL Normal 7.6-11.0 [facility] Comment on above: Performed By: #### L 500.2500, L100.0100 ####[facility] [address] [place], [address] Chloride [Moles/Vol] 104 mmol/L Normal 98-108 [facility] Comment on above: Performed By: #### L 500.2500, L100.0100 ####[facility] [address] [place], [address] CO2 [Moles/Vol] 24.5 mmol/L Normal 21.0-32.0 [facility] Comment on above: Performed By: #### L 500.2500, L100.0100 ####[facility] [address] [place], [address] Creatinine [Mass/Vol] 1.00 mg/dL Normal 0.70-1.20 [facility] Comment on above: Performed By: #### L 500.2500, L100.0100 ####[facility] [address] [place], [address] ECRCL 38.84 ml/min Low 50-250 [facility] Comment on above: Performed By: #### L 500.2500, L100.0100 ####[facility] [address] [place], [address] GAP 11 Normal 5-15 [facility] Comment on above: Performed By: #### L 500.2500, L100.0100 ####[facility] [address] [place], [address] GFR/1.73 sq M.predicted among non-blacks MDRD (S/P/Bld) [Vol rate/Area] 61 mL/min/{1.73_m2} Normal >60 [facility] Comment on above: Result Comment: mL/m in/1.73m2 CKD-EPI Creatinine Equation (2020) Performed By: #### L 500.2500, L100.0100 ####[facility] [address] [place], [address] Glucose [Mass/Vol] 73 mg/dL Normal 70-99 [facility] Comment on above: Performed By: #### L 500.2500, L100.0100 ####[facility] [address] [place], [address] Potassium [Moles/Vol] 3.6 mmol/L Normal 3.3-5.1 [facility] Comment on above: Performed By: #### L 500.2500, L100.0100 ####[facility] [address] [place], [address] Sodium [Moles/Vol] 139 mmol/L Normal 133-145 [facility] Comment on above: Performed By: #### L 500.2500, L100.0100 ####[facility] [address] [place], [address] Urea nitrogen [Mass/Vol] 13 mg/dL Normal 4-19 [facility] Comment on above: Performed By: #### L 500.2500, L100.0100 ####[facility] [address] [place], [address] Blood manual differential co mment interpretation (narrative result)Ordered By: Roman Mckeon on 06-05-2025 Manual differential comment Jimy (Bld) [Interp] SCANNED [facility] CBC W/Diff, Automatedon 05-19 Absolute Lymph 0.64 X10 3/uL Low 0.83-4.51 [facility] Comment on above: Order Comment: Comme nts: collect 2hrs post 1u blood transfusion Performed By: #### L 100.0100 ####[facility] [address] [place], [address] Absolute Neut 4.9 X10 3/uL Normal 2.0-7.7 [facility] Comment on above: Order Comment: Comme nts: collect 2hrs post 1u blood transfusion Performed By: #### L 100.0100 ####[facility] [address] [place], [address] Basophils/100 WBC (Bld) 0.5 % Normal 0-1 [facility] Comment on above: Order Comment: Comme nts: collect 2hrs post 1u blood transfusion Performed By: #### L 100.0100 ####[facility] [address] [place], [address] Eosinophils/100 WBC (Bld) 2.4 % Normal 0-5 [facility] Comment on above: Order Comment: Comme nts: collect 2hrs post 1u blood transfusion Performed By: #### L 100.0100 ####[facility] [address] [place], [address] Erythrocyte distribution width (RBC) [Ratio] 17.5 % High 11.6-14.6 [facility] Comment on above: Order Comment: Comme nts: collect 2hrs post 1u blood transfusion Performed By: #### L 100.0100 ####[facility] [address] [place], [address] Hematocrit (Bld) [Volume fraction] 26.7 % Low 37-47 [facility] Comment on above: Order Comment: Comme nts: collect 2hrs post 1u blood transfusion Performed By: #### L 100.0100 ####[facility] [address] [place], [address] Hemoglobin (Bld) [Mass/Vol] 8.5 g/dL Low 12.0-15.0 [facility] Comment on above: Order Comment: Comme nts: collect 2hrs post 1u blood transfusion Performed By: #### L 100.0100 ####[facility] [address] [place], [address] IG% 0.300 Normal 0.0-0.9 [facility] Comment on above: Order Comment: Comme nts: collect 2hrs post 1u blood transfusion Result Comment: IG% - Immature Granulocytes (promyelocytes, myelocytes andmetamyelocytes) > 1% indicates that a LEFT SHIFT is Present. Performed By: #### L 100.0100 ####[facility] [address] [place], [address] Lymphocytes/100 WBC (Bld) 10.1 % Low 19-41 [facility] Comment on above: Order Comment: Comme nts: collect 2hrs post 1u blood transfusion Performed By: #### L 100.0100 ####[facility] [address] [place], [address] MCH (RBC) [Entitic mass] 26.4 pg Low 27.0-32.0 [facility] Comment on above: Order Comment: Comme nts: collect 2hrs post 1u blood transfusion Performed By: #### L 100.0100 ####[facility] [address] [place], [address] MCHC (RBC) [Mass/Vol] 31.8 g/dL Low 32-36 [facility] Comment on above: Order Comment: Comme nts: collect 2hrs post 1u blood transfusion Performed By: #### L 100.0100 ####[facility] [address] [place], [address] MCV (RBC) [Entitic vol] 82.9 fL Normal 81-99 [facility] Comment on above: Order Comment: Comme nts: collect 2hrs post 1u blood transfusion Performed By: #### L 100.0100 ####[facility] [address] [place], [address] Monocytes/100 WBC (Bld) 10.4 % High 0-10 [facility] Comment on above: Order Comment: Comme nts: collect 2hrs post 1u blood transfusion Performed By: #### L 100.0100 ####[facility] [address] [place], [address] Neutrophils/100 WBC (Bld) 76.3 % High 47-70 [facility] Comment on above: Order Comment: Comme nts: collect 2hrs post 1u blood transfusion Performed By: #### L 100.0100 ####[facility] [address] [place], [address] Nucleated RBC (Bld) [#/Vol] 0.5 10*3/uL Normal 0-5 [facility] Comment on above: Order Comment: Comme nts: collect 2hrs post 1u blood transfusion Performed By: #### L 100.0100 ####[facility] [address] [place], [address] Platelet mean volume (Bld) [Entitic vol] 9.8 fL Normal 6.2-12.0 [facility] Comment on above: Order Comment: Comme nts: collect 2hrs post 1u blood transfusion Performed By: #### L 100.0100 ####[facility] [address] [place], [address] Platelets (Bld) [#/Vol] 114 10*3/uL Low 150-450 [facility] Comment on above: Order Comment: Comme nts: collect 2hrs post 1u blood transfusion Performed By: #### L 100.0100 ####[facility] [address] [place], [address] RBC (Bld) [#/Vol] 3.22 10*6/uL Low 4.2-5.4 [facility] Comment on above: Order Comment: Comme nts: collect 2hrs post 1u blood transfusion Performed By: #### L 100.0100 ####[facility] [address] [place], [address] RDW SD 52.8 fl High 35.1-43.9 [facility] Comment on above: Order Comment: Comme nts: collect 2hrs post 1u blood transfusion Performed By: #### L 100.0100 ####[facility] [address] [place], [address] WBC (Bld) [#/Vol] 6.4 10*3/uL Normal 4.4-11.0 [facility] Comment on above: Order Comment: Comme nts: collect 2hrs post 1u blood transfusion Performed By: #### L 100.0100 ####[facility] [address] [place], [address] SMEAR COMMENT SCANNED Normal [facility] Comment on above: Performed By: #### L 500.2500, L100.0100 ####[facility] [address] [place], [address] EGD Reporton 06-05-2025 EGD Report Normal [facility] MR/POSTOP.ANEon 06-05-2025 MR/POSTOP.ANE Normal [facility] MR/SBNINSLG9hj 06-05-2025 MR/POSTOPAN2 Normal [facility] Activated partial thrombopla stin time (aPTT) in platelet poor plasma by coagulation aOrdered By: Shyam Acharya on 06-04-2025 aPTT Coag (PPP) [Time] 29.9 s 24.1-36.2 [facility] Basic Metabolic Profile (BMP )on 06-04-2025 BUN/CRE 14.9 RATIO Normal 10-20 [facility] Comment on above: Performed By: #### L 501.5200, L501.2300, L500.2500, L100.0100 ####[facility] [address] [place], [address] Calcium [Mass/Vol] 7.5 mg/dL Low 7.6-11.0 [facility] Comment on above: Performed By: #### L 501.5200, L501.2300, L500.2500, L100.0100 ####[facility] [address] [place], [address] Chloride [Moles/Vol] 97 mmol/L Low 98-108 [facility] Comment on above: Performed By: #### L 501.5200, L501.2300, L500.2500, L100.0100 ####[facility] [address] [place], [address] CO2 [Moles/Vol] 26.9 mmol/L Normal 21.0-32.0 [facility] Comment on above: Performed By: #### L 501.5200, L501.2300, L500.2500, L100.0100 ####[facility] [address] [place], [address] Creatinine [Mass/Vol] 1.15 mg/dL Normal 0.70-1.20 [facility] Comment on above: Performed By: #### L 501.5200, L501.2300, L500.2500, L100.0100 ####[facility] [address] [place], [address] ECRCL 34.35 ml/min Low 50-250 [facility] Comment on above: Performed By: #### L 501.5200, L501.2300, L500.2500, L100.0100 ####[facility] [address] [place], [address] GAP 12 Normal 5-15 [facility] Comment on above: Performed By: #### L 501.5200, L501.2300, L500.2500, L100.0100 ####[facility] [address] [place], [address] GFR/1.73 sq M.predicted among non-blacks MDRD (S/P/Bld) [Vol rate/Area] 51 mL/min/{1.73_m2} Low >60 [facility] Comment on above: Result Comment: mL/m in/1.73m2 CKD-EPI Creatinine Equation (2020) Performed By: #### L 501.5200, L501.2300, L500.2500, L100.0100 ####[facility] [address] [place], [address] Glucose [Mass/Vol] 85 mg/dL Normal 70-99 [facility] Comment on above: Performed By: #### L 501.5200, L501.2300, L500.2500, L100.0100 ####[facility] [address] [place], [address] Potassium [Moles/Vol] 2.9 mmol/L Low 3.3-5.1 [facility] Comment on above: Performed By: #### L 501.5200, L501.2300, L500.2500, L100.0100 ####[facility] [address] [place], [address] Sodium [Moles/Vol] 136 mmol/L Normal 133-145 [facility] Comment on above: Performed By: #### L 501.5200, L501.2300, L500.2500, L100.0100 ####[facility] [address] [place], [address] Urea nitrogen [Mass/Vol] 17 mg/dL Normal 4-19 [facility] Comment on above: Performed By: #### L 501.5200, L501.2300, L500.2500, L100.0100 ####[facility] [address] [place], [address] CBC W/Diff, Automatedon - Absolute Lymph 1.13 X10 3/uL Normal 0.83-4.51 [facility] Comment on above: Performed By: #### L 501.5200, L501.2300, L500.2500, L100.0100 ####[facility] [address] [place], [address] Absolute Neut 5.5 X10 3/uL Normal 2.0-7.7 [facility] Comment on above: Performed By: #### L 501.5200, L501.2300, L500.2500, L100.0100 ####[facility] [address] [place], [address] Basophils/100 WBC (Bld) 0.5 % Normal 0-1 [facility] Comment on above: Performed By: #### L 501.5200, L501.2300, L500.2500, L100.0100 ####[facility] [address] [place], [address] Eosinophils/100 WBC (Bld) 3.1 % Normal 0-5 [facility] Comment on above: Performed By: #### L 501.5200, L501.2300, L500.2500, L100.0100 ####[facility] [address] [place], [address] Erythrocyte distribution width (RBC) [Ratio] 18.1 % High 11.6-14.6 [facility] Comment on above: Performed By: #### L 501.5200, L501.2300, L500.2500, L100.0100 ####[facility] [address] [place], [address] Hematocrit (Bld) [Volume fraction] 24.3 % Low 37-47 [facility] Comment on above: Performed By: #### L 501.5200, L501.2300, L500.2500, L100.0100 ####[facility] [address] [place], [address] Hemoglobin (Bld) [Mass/Vol] 7.6 g/dL Low 12.0-15.0 [facility] Comment on above: Performed By: #### L 501.5200, L501.2300, L500.2500, L100.0100 ####[facility] [address] [place], [address] IG% 0.600 Normal 0.0-0.9 [facility] Comment on above: Result Comment: IG% - Immature Granulocytes (promyelocytes, myelocytes andmetamyelocytes) > 1% indicates that a LEFT SHIFT is Present. Performed By: #### L 501.5200, L501.2300, L500.2500, L100.0100 ####[facility] [address] [place], [address] Lymphocytes/100 WBC (Bld) 14.1 % Low 19-41 [facility] Comment on above: Performed By: #### L 501.5200, L501.2300, L500.2500, L100.0100 ####[facility] [address] [place], [address] MCH (RBC) [Entitic mass] 24.8 pg Low 27.0-32.0 [facility] Comment on above: Performed By: #### L 501.5200, L501.2300, L500.2500, L100.0100 ####[facility] [address] [place], [address] MCHC (RBC) [Mass/Vol] 31.3 g/dL Low 32-36 [facility] Comment on above: Performed By: #### L 501.5200, L501.2300, L500.2500, L100.0100 ####[facility] [address] [place], [address] MCV (RBC) [Entitic vol] 79.2 fL Low 81-99 [facility] Comment on above: Performed By: #### L 501.5200, L501.2300, L500.2500, L100.0100 ####[facility] [address] [place], [address] Monocytes/100 WBC (Bld) 12.9 % High 0-10 [facility] Comment on above: Performed By: #### L 501.5200, L501.2300, L500.2500, L100.0100 ####[facility] [address] [place], [address] Neutrophils/100 WBC (Bld) 68.8 % Normal 47-70 [facility] Comment on above: Performed By: #### L 501.5200, L501.2300, L500.2500, L100.0100 ####[facility] [address] [place], [address] Nucleated RBC (Bld) [#/Vol] 2.0 10*3/uL Normal 0-5 [facility] Comment on above: Performed By: #### L 501.5200, L501.2300, L500.2500, L100.0100 ####[facility] [address] [place], [address] Platelet mean volume (Bld) [Entitic vol] 9.9 fL Normal 6.2-12.0 [facility] Comment on above: Performed By: #### L 501.5200, L501.2300, L500.2500, L100.0100 ####[facility] [address] [place], [address] Platelets (Bld) [#/Vol] 129 10*3/uL Low 150-450 [facility] Comment on above: Performed By: #### L 501.5200, L501.2300, L500.2500, L100.0100 ####[facility] [address] [place], [address] RBC (Bld) [#/Vol] 3.07 10*6/uL Low 4.2-5.4 [facility] Comment on above: Performed By: #### L 501.5200, L501.2300, L500.2500, L100.0100 ####[facility] [address] [place], [address] RDW SD 52.5 fl High 35.1-43.9 [facility] Comment on above: Performed By: #### L 501.5200, L501.2300, L500.2500, L100.0100 ####[facility] [address] [place], [address] WBC (Bld) [#/Vol] 8.0 10*3/uL Normal 4.4-11.0 [facility] Comment on above: Performed By: #### L 501.5200, L501.2300, L500.2500, L100.0100 ####[facility] [address] [place], [address] HH, Hemoglobin AND Hematocri ton 06-04-2025 Hematocrit (Bld) [Volume fraction] 23.1 % Low 37-47 [facility] Comment on above: Performed By: #### L 100.0600 ####[facility] [address] [place], [address] Hemoglobin (Bld) [Mass/Vol] 7.4 g/dL Low 12.0-15.0 [facility] Comment on above: Performed By: #### L 100.0600 ####[facility] [address] [place], [address] L509.6001on 06-04-2025 CORTISOL 13.10 ug/dL Normal 6.02-18.40 [facility] Comment on above: Performed By: #### L 509.6001 ####[facility] [address] [place], [address] Magnesiumon 06-04-2025 Magnesium [Mass/Vol] 1.6 mg/dL Normal 1.5-2.2 [facility] Comment on above: Performed By: #### L 501.5200, L501.2300, L500.2500, L100.0100 ####[facility] [address] [place], [address] Partial Thromboplast Timeon 06-04-2025 aPTT Coag (Bld) [Time] 29.9 s Normal 24.1-36.2 [facility] Comment on above: Performed By: #### L 300.4310, L300.3900 ####[facility] [address] [place], [address] Phosphoruson 06-04-2025 Phosphate [Mass/Vol] 3.7 mg/dL Normal 2.7-4.5 [facility] Comment on above: Performed By: #### L 501.5200, L501.2300, L500.2500, L100.0100 ####[facility] [address] [place], [address] Prothrombin Time w/INRon INR Coag (PPP) [Relative time] 1.2 {INR} Normal [facility] Comment on above: Performed By: #### L 300.4310, L300.3900 ####[facility] [address] [place], [address] PT Coag (PPP) [Time] 15.4 s High 11.7-14.9 [facility] Comment on above: Performed By: #### L 300.4310, L300.3900 ####[facility] [address] [place], [address] Prothrombin timeOrdered By: Shyam Acharya on 06-04-2025 PT Coag (PPP) [Time] 15.4 s High 11.7-14.9 [facility] Serum or plasma cortisol felicia surement (mass/volume)Ordered By: Roman Hewitt on 06-04-2025 Cortisol [Mass/Vol] 13.10 ug/dL 6.02-18.40 [facility] Absolute lymphocyte countOrd ered By: Yasmani Haynes on 06-03-2025 Lymphocytes Auto (Unsp spec) [#/Vol] 1.02 10*3/uL 0.83-4.51 [facility] Anion gap in Serum or Plasma Ordered By: Yasmani Haynes on 06-03-2025 Anion gap [Moles/Vol] 14 mmol/L 5-15 [facility] Automated lymphocyte count a s percentage of total leukocytesOrdered By: Yasmani Haynes on 06-03-2025 Lymphocytes/100 WBC Auto (Unsp spec) 13.4 % Low 19-41 [facility] BRCon 06-03-2025 RC Normal [facility] Comment on above: Result Comment: [id number] OP RC NOT [id number] OP RC TRANSFUSED 06/05/25 [id number] OP RC NOT AVAILABLE Performed By: #### B RC ####[facility] [address] [place], [address] Result Comment: [id number] OP RC TRANSFUSED 06/03/25 [id number] OP RC TRANSFUSED 06/03/25 0711 Performed By: #### B RC, BTS, M100.7900 ####[facility] [address] [place], [address] BUN/creatinine ratioOrdered By: Yasmani Haynes on 06-03-2025 Urea nitrogen/Creatinine [Mass ratio] 21.6 mg/mg High [facility] Basic Metabolic Profile (BMP )on 06-03-2025 BUN/CRE 21.6 RATIO High [address] [place] [address] Comment on above: Performed By: #### L 100.0100, L500.2500, L500.3400, L503.7505, L501.5200 ####[facility] [address] [place], [address] Calcium [Mass/Vol] 8.1 mg/dL Normal 7.6-11.0 [facility] Comment on above: Performed By: #### L 100.0100, L500.2500, L500.3400, L503.7505, L501.5200 ####[facility] [address] [place], [address] Chloride [Moles/Vol] 101 mmol/L Normal 98-108 [facility] Comment on above: Performed By: #### L 100.0100, L500.2500, L500.3400, L503.7505, L501.5200 ####[facility] [address] [place], [address] CO2 [Moles/Vol] 20.9 mmol/L Low 21.0-32.0 [facility] Comment on above: Performed By: #### L 100.0100, L500.2500, L500.3400, L503.7505, L501.5200 ####[facility] [address] [place], [address] Creatinine [Mass/Vol] 1.07 mg/dL Normal 0.70-1.20 [facility] Comment on above: Performed By: #### L 100.0100, L500.2500, L500.3400, L503.7505, L501.5200 ####[facility] [address] [place], [address] ECRCL 38.46 ml/min Low 50-250 [facility] Comment on above: Performed By: #### L 100.0100, L500.2500, L500.3400, L503.7505, L501.5200 ####[facility] [address] [place], [address] GAP 14 Normal 5-15 [facility] Comment on above: Performed By: #### L 100.0100, L500.2500, L500.3400, L503.7505, L501.5200 ####[facility] [address] [place], [address] GFR/1.73 sq M.predicted among non-blacks MDRD (S/P/Bld) [Vol rate/Area] 56 mL/min/{1.73_m2} Low >60 [facility] Comment on above: Result Comment: mL/m in/1.73m2 CKD-EPI Creatinine Equation (2020) Performed By: #### L 100.0100, L500.2500, L500.3400, L503.7505, L501.5200 ####[facility] [address] [place], [address] Glucose [Mass/Vol] 116 mg/dL High 70-99 [facility] Comment on above: Performed By: #### L 100.0100, L500.2500, L500.3400, L503.7505, L501.5200 ####[facility] [address] [place], [address] Potassium [Moles/Vol] 3.7 mmol/L Normal 3.3-5.1 [facility] Comment on above: Performed By: #### L 100.0100, L500.2500, L500.3400, L503.7505, L501.5200 ####[facility] [address] [place], [address] Sodium [Moles/Vol] 136 mmol/L Normal 133-145 [facility] Comment on above: Performed By: #### L 100.0100, L500.2500, L500.3400, L503.7505, L501.5200 ####[facility] [address] [place], [address] Urea nitrogen [Mass/Vol] 23 mg/dL High 4-19 [facility] Comment on above: Performed By: #### L 100.0100, L500.2500, L500.3400, L503.7505, L501.5200 ####[facility] [address] [place], [address] Basophil percentageOrdered B y: Yasmani Haynes on 06-03-2025 Basophils/100 WBC (Bld) 0.4 % 0-1 [facility] Bilirubin directOrdered By: Yasmani Haynes on 06-03-2025 Bilirubin.direct [Mass/Vol] 0.25 mg/dL 0.00-0.30 [facility] Bilirubin, totalOrdered By: Yasmani Haynes on 06-03-2025 Bilirubin [Mass/Vol] 0.47 mg/dL 0.00-1.30 [facility] Blood stomatocytes detection by light microscopyOrdered By: Yasmani Haynes on 06-03-2025 Stomatocytes LM Ql (Bld) 1+ [facility] CBC W/Diff, Automatedon 05-19 Anisocytosis Ql (Bld) RARE Normal [facility] Comment on above: Performed By: #### L 100.0100, L500.2500, L500.3400, L503.7505, L501.5200 ####[facility] [address] [place], [address] RED CELL MORPH N CYTIC Normal NORM C C [facility] Comment on above: Performed By: #### L 100.0100, L500.2500, L500.3400, L503.7505, L501.5200 ####[facility] [address] [place], [address] STOMATOCYTE 1+ Normal [facility] Comment on above: Performed By: #### L 100.0100, L500.2500, L500.3400, L503.7505, L501.5200 ####[facility] [address] [place], [address] Carbon dioxide, total [Moles /volume] in Central venous bloodOrdered By: Yasmani Haynes on 06-03-2025 CO2 [Moles/Vol] 20.9 mmol/L Low 21.0-32.0 [facility] Chest 1 View (Portable)on Chest 1 View (Portable) Normal [facility] Chloride assayOrdered By: Kari Haynes on 06-03-2025 Chloride [Moles/Vol] 101 mmol/L 98-108 [facility] Emergency Department Summary on 06-03-2025 Emergency Department Summary Normal [facility] Eosinophil percentageOrdered By: Yasmani Haynes on 06-03-2025 Eosinophils/100 WBC (Bld) 2.0 % 0-5 [facility] Erythrocyte distribution wid th ratioOrdered By: Yasmani Haynes on 06-03-2025 Erythrocyte distribution width (RBC) [Ratio] 20.2 % High 11.6-14.6 [facility] Erythrocyte distribution wid th standard deviationOrdered By: Yasmani Haynes on 06-03-2025 Erythrocyte distribution width (RBC) [Ratio] 58.9 fl High 35.1-43.9 [facility] Erythrocyte morphology asses smentOrdered By: Yasmani Haynes on 06-03-2025 RBC morphology finding Nom (Bld) N CYTIC NORMAL NORM C&C [facility] Glomerular filtration rate ( GFR) estimation/1.73 sq m using serum, plasma, or whole bOrdered By: Yasmani Haynes on 06-03-2025 GFR/1.73 sq M.predicted among non-blacks MDRD (S/P/Bld) [Vol rate/Area] 56 mL/min/{1.73_m2} Low >60 [facility] H AND P Exam - Hospitaliston 06-03-2025 H&P Exam - Hospitalist Normal [facility] HH, Hemoglobin AND Hematocri ton 06-03-2025 Hematocrit (Bld) [Volume fraction] 24.7 % Low 37-47 [facility] Comment on above: Order Comment: JOE (CHELITA) CALLED TO BE PUSHED UP DUE TO EARLIERCOLLECTION ON FIRST SHIFT Performed By: #### L 100.0600 ####[facility] [address] [place], [address] Hemoglobin (Bld) [Mass/Vol] 7.9 g/dL Low 12.0-15.0 [facility] Comment on above: Order Comment: JOE (CHELITA) CALLED TO BE PUSHED UP DUE TO EARLIERCOLLECTION ON FIRST SHIFT Performed By: #### L 100.0600 ####[facility] [address] [place], [address] HCT Normal 37-47 [facility] Comment on above: Result Comment: WAS DONE AT 1222 PER HIEDI NURSE CAN SKIP 1400 AND DO 2000ONE Performed By: #### L 100.0600 ####[facility] [address] [place], [address] HGB Normal 12.0-15.0 [facility] Comment on above: Result Comment: WAS DONE AT 1222 PER HIEDI NURSE CAN SKIP 1400 AND DO 2000ONE Performed By: #### L 100.0600 ####[facility] [address] [place], [address] Hematocrit (Bld) [Volume fraction] 25.2 % Low [address] [place] [address] Comment on above: Performed By: #### L 100.0600 ####[facility] [address] [place], [address] Hemoglobin (Bld) [Mass/Vol] 7.8 g/dL Low 12.0-15.0 [facility] Comment on above: Performed By: #### L 100.0600 ####[facility] [address] [place], [address] Hematocrit (Bld) [Volume fraction] 22.5 % Low [address] [place] [address] Comment on above: Result Comment: PER PT CHELITA LOYD, PT WAS STILL RECEIVING BLOOD. OK TOCANCEL, SINCE RESULT WILL NOT BE ACCURATE. Performed By: #### L 100.0600 ####[facility] [address] [place], [address] Hemoglobin (Bld) [Mass/Vol] 7.0 g/dL Low 12.0-15.0 [facility] Comment on above: Result Comment: PER PT CHELITA LOYD, PT WAS STILL RECEIVING BLOOD. OK TOCANCEL, SINCE RESULT WILL NOT BE ACCURATE. Performed By: #### L 100.0600 ####[facility] [address] [place], [address] Hematocrit Auto (Bld) [Volum e fraction]Ordered By: Yasmani Haynes on 06-03-2025 Hematocrit (Bld) [Volume fraction] 18.0 % Low [address] [place] [address] Hemoglobin measurementOrdere d By: Yasmani Haynes on 06-03-2025 Hemoglobin (Bld) [Mass/Vol] 5.2 g/dL Low 12.0-15.0 [facility] Immature granulocytes/100 WB C Auto (Bld)Ordered By: Yasmani Haynes on 06-03-2025 Immature granulocytes/100 WBC (Bld) 0.800 % 0.0-0.9 [facility] L503.7505on 06-03-2025 Natriuretic peptide B (Bld) [Mass/Vol] 6776 pg/mL High <=900 [facility] Comment on above: Result Comment: Hear t Failure Unlikely: < 300 pg/mLHeart Failure Likely< 50 Years: > 450 pg/mL50-75 Years: > 900 pg/mL>75 Years: > 1800 pg/mL Performed By: #### L 100.0100, L500.2500, L500.3400, L503.7505, L501.5200 ####[facility] [address] [place], [address] Liver Profileon 06-03-2025 Albumin [Mass/Vol] 3.7 g/dL Normal 3.4-4.8 [facility] Comment on above: Performed By: #### L 100.0100, L500.2500, L500.3400, L503.7505, L501.5200 ####[facility] [address] [place], [address] ALK PHOS 113 U/L High 35-104 [facility] Comment on above: Performed By: #### L 100.0100, L500.2500, L500.3400, L503.7505, L501.5200 ####[facility] [address] [place], [address] ALT [Catalytic activity/Vol] 95 U/L High <=34 [facility] Comment on above: Performed By: #### L 100.0100, L500.2500, L500.3400, L503.7505, L501.5200 ####[facility] [address] [place], [address] AST [Catalytic activity/Vol] 37 U/L High <=31 [facility] Comment on above: Performed By: #### L 100.0100, L500.2500, L500.3400, L503.7505, L501.5200 ####[facility] [address] [place], [address] Bilirubin [Mass/Vol] 0.47 mg/dL Normal 0.00-1.30 [facility] Comment on above: Performed By: #### L 100.0100, L500.2500, L500.3400, L503.7505, L501.5200 ####[facility] [address] [place], [address] Bilirubin.direct [Mass/Vol] 0.25 mg/dL Normal 0.00-0.30 [facility] Comment on above: Performed By: #### L 100.0100, L500.2500, L500.3400, L503.7505, L501.5200 ####[facility] [address] [place], [address] Globulin (S) [Mass/Vol] 2.0 g/dL Low 2.2-4.2 [facility] Comment on above: Performed By: #### L 100.0100, L500.2500, L500.3400, L503.7505, L501.5200 ####[facility] [address] [place], [address] T PROT 5.7 g/dL Low 5.9-8.4 [facility] Comment on above: Performed By: #### L 100.0100, L500.2500, L500.3400, L503.7505, L501.5200 ####[facility] [address] [place], [address] MCV (mean corpuscular volume ) determinationOrdered By: Yasmani Haynes on 06-03-2025 MCV (RBC) [Entitic vol] 78.9 fL Low 81-99 [facility] MR/CON.PCM.GIon 06-03-2025 MR/CON.PCM.GI Normal [facility] Magnesiumon 06-03-2025 Magnesium [Mass/Vol] 2.1 mg/dL Normal 1.5-2.2 [facility] Comment on above: Performed By: #### L 100.0100, L500.2500, L500.3400, L503.7505, L501.5200 ####[facility] [address] [place], [address] Magnesium measurement (mass/ volume)Ordered By: Yasmani Haynes on 06-03-2025 Magnesium (Unsp spec) [Mass/Vol] 2.1 mg/dL 1.5-2.2 [facility] Mean corpuscular hemoglobin (MCH) determinationOrdered By: Yasmani Haynes on 06-03-2025 MCH (RBC) [Entitic mass] 22.8 pg Low 27.0-32.0 [facility] Monocyte percentageOrdered B y: Yasmani Haynes on 06-03-2025 Monocytes/100 WBC (Bld) 14.0 % High 0-10 [facility] Natriuretic peptide.B prohor kristie N-Terminal [Mass/volume] in Serum or PlasmaOrdered By: Yasmani Haynes on 06-03-2025 Natriuretic peptide.B prohormone N-Terminal [Mass/Vol] 6776 pg/mL High <900 [facility] Neutrophil percentageOrdered By: Yasmani Haynes on 06-03-2025 Neutrophils/100 WBC (Bld) 69.4 % 47-70 [facility] No Panel InformationOrdered By: Yasmani Haynes on 06-03-2025 RARE [facility] 37 U/L High <32 [facility] Platelet countOrdered By: Kari Haynes on 06-03-2025 Platelets (Bld) [#/Vol] 181 10*3/uL 150-450 [facility] Potassium measurement (mass/ volume)Ordered By: Yasmani Haynes on 06-03-2025 Potassium (Unsp spec) [Mass/Vol] 3.7 mmol/L 3.3-5.1 [facility] RBC Auto (Bld) [#/Vol]Ordere d By: Yasmani Haynes on 06-03-2025 RBC (Bld) [#/Vol] 2.28 10*6/uL Low 4.2-5.4 [facility] Serum creatinine measurement (mass/volume)Ordered By: Yasmani Haynes on 06-03-2025 Creatinine [Mass/Vol] 1.07 mg/dL 0.70-1.20 [facility] Serum globulin measurementOr dered By: Yasmani Haynes on 06-03-2025 Globulin (S) [Mass/Vol] 2.0 g/dL Low 2.2-4.2 [facility] Serum glucose measurement (m ass/volume)Ordered By: Yasmani Haynes on 06-03-2025 Glucose [Mass/Vol] 116 mg/dL High 70-99 [facility] Serum or plasma alanine pizarro otransferase (ALT) measurementOrdered By: Yasmani Haynes on 06-03-2025 ALT [Catalytic activity/Vol] 95 U/L High <35 [facility] Serum or plasma albumin stefania urement (mass/volume)Ordered By: Yasmani Haynes on 06-03-2025 Albumin [Mass/Vol] 3.7 g/dL 3.4-4.8 [facility] Serum or plasma alkaline anthony sphatase measurementOrdered By: Yasmani Haynes on 06-03-2025 ALP [Catalytic activity/Vol] 113 U/L High 35-104 [facility] Serum or plasma calcium stefania urement (mass/volume)Ordered By: Yasmani Haynes on 06-03-2025 Calcium [Mass/Vol] 8.1 mg/dL 7.6-11.0 [facility] Serum or plasma urea nitroge n measurement (mass/volume)Ordered By: Yasmani Haynes on 06-03-2025 Urea nitrogen [Mass/Vol] 23 mg/dL High 4-19 [facility] Sodium levelOrdered By: Joce Haynes on 06-03-2025 Sodium [Moles/Vol] 136 mmol/L 133-145 [facility] Stool Occult Blood iFOBon STOB Normal [facility] Comment on above: Performed By: #### B KIKA, CALLIES, M100.7900 ####[facility] [address] [place], [place], [id number] Stool gastrointestinal hemog lobin detection by immunologic methodOrdered By: Yasmani Haynes on 06-03-2025 Lower GI hemoglobin IA Ql (Stl) [facility] Lower GI hemoglobin IA Ql (Stl) [facility] Total proteinOrdered By: Ever Haynes on 06-03-2025 Protein [Mass/Vol] 5.7 g/dL Low 5.9-8.4 [facility] Type AND Screenon 06-03-2025 ABO and Rh group Nom (Bld) Blood group O Rh(D) positive Normal [facility] Comment on above: Order Comment: Has p t arrived? YCMV NEG? NNumber of units to transfuse: 2Is pt's Hgb is = to 7.0 mg/dl or Hct </= 21%? YReason for Ordering Blood: ChronicAre the blood/blood products to be transfused? YIs the patient having/had surgery? NWhen ReadyNYA Performed By: #### B RC, BTS, M100.7900 ####[facility] [address] [place], [address] White blood cell (WBC) count Ordered By: Yasmani Haynes on 06-03-2025 WBC (Bld) [#/Vol] 7.6 10*3/uL 4.4-11.0 [facility] Brain without Contraston Brain without Contrast Normal [facility] Magnetic resonance imaging r eportOrdered By: Tc Baum on 05-20-2025 Study report [facility] Work Phone: Emergency Department Summary on 05-19-2025 Emergency Department Summary Normal [facility] Thyroid Antibodieson 025 TG AB < 1.0 Normal 0.0-0.9 [facility] Comment on above: Result Comment: Thyr oglobulin Antibody measured by Jasmeet CoulterMethodologyIt should be noted that the presence of thyroglobulinantibodies may not be pathogenic nor diagnostic, especiallyat very low levels. The assay grease press helper has found thatfour percent of individuals without evidence of thyroiddisease or autoimmunity will have positive TgAb levels upto 4 IU/mL.Performed at: [address] [id number] Director: Damion Richards PhD, Phone: [phone] Performed By: #### L 503.0106, L3398.6324, L506.0200 ####[facility] [address] [place], [place], [id number] THYR PEROX AB < 9 Normal 0-34 [facility] Comment on above: Performed By: #### L 503.0106, L33006750, L506.0200 ####[facility] [address] [place], [place], [address] Absolute lymphocyte countOrd ered By: Daron Benton on 05-15-2025 Lymphocytes Auto (Unsp spec) [#/Vol] 1.09 10*3/uL 0.83-4.51 [facility] Anion gap in Serum or Plasma Ordered By: Daron Benton on 05-15-2025 Anion gap [Moles/Vol] 11 mmol/L 5-15 [facility] Automated lymphocyte count a s percentage of total leukocytesOrdered By: Daron Benton on 05-15-2025 Lymphocytes/100 WBC Auto (Unsp spec) 13.0 % Low 19-41 [facility] BUN/creatinine ratioOrdered By: Daron Benton on 05-15-2025 Urea nitrogen/Creatinine [Mass ratio] 22.7 mg/mg High 10-20 [facility] Basophil percentageOrdered B y: Daron Benton on 05-15-2025 Basophils/100 WBC (Bld) 0.8 % 0-1 [facility] Bilirubin, totalOrdered By: Daron Benton on 05-15-2025 Bilirubin [Mass/Vol] 0.18 mg/dL 0.00-1.30 [facility] Blood manual differential co mment interpretation (narrative result)Ordered By: Daron Benton on 05-15-2025 Manual differential comment Jimy (Bld) [Interp] SCANNED [facility] Blood polychromasia detectio n by light microscopyOrdered By: Daron Benton on 05-15-2025 Polychromasia LM Ql (Bld) 1+ [facility] CBC W/Diff, Automatedon 04-20 Anisocytosis Ql (Bld) 1+ Normal [facility] Comment on above: Order Comment: Order Date: 05/15/25Order Info: 018- - CBCDOrder Info: [id number] - RETIC Performed By: #### L 506.0400, L500.4050, L501.9520, L503.6030, L100.0100, L100.9950, L503.6550, L501.50065 ####[facility] [address] [place], [address] HYPOCHROMASIA 1+ Normal [facility] Comment on above: Order Comment: Order Date: 05/15/25Order Info: 018- - CBCDOrder Info: [id number] - RETIC Performed By: #### L 506.0400, L500.4050, L501.9520, L503.6030, L100.0100, L100.9950, L503.6550, L501.96708 ####[facility] [address] [place], [place], [phone] PLT EST ADEQUATE Normal ADEQ [facility] Comment on above: Order Comment: Order Date: 05/15/25Order Info: 018- - CBCDOrder Info: [id number] - RETIC Performed By: #### L 506.0400, L500.4050, L501.9520, L503.6030, L100.0100, L100.9950, L503.6550, L501.57412 ####[facility] [address] [place], [address] POLYCHROMASIA 1+ Normal [facility] Comment on above: Order Comment: Order Date: 05/15/25Order Info: 018- - CBCDOrder Info: [id number] - RETIC Performed By: #### L 506.0400, L500.4050, L501.9520, L503.6030, L100.0100, L100.9950, L503.6550, L501.50412 ####[facility] [address] [place], [address] SMEAR COMMENT SCANNED Normal [facility] Comment on above: Order Comment: Order Date: 05/15/25Order Info: 0184-1 - CBCDOrder Info: 4679-7 - RETIC Performed By: #### L 506.0400, L500.4050, L501.9520, L503.6030, L100.0100, L100.9950, L503.6550, L501.27236 ####[facility] [address] [place], [address] CTA Neck W/WO Contraston CTA Neck W/WO Contrast Normal [facility] Carbon dioxide, total [Moles /volume] in Central venous bloodOrdered By: Daron Benton on 05-15-2025 CO2 [Moles/Vol] 25.0 mmol/L 21.0-32.0 [facility] Chloride assayOrdered By: Alex Benton on 05-15-2025 Chloride [Moles/Vol] 100 mmol/L 98-108 [facility] Comprehensive Metabolic Prof ilon 05-15-2025 Albumin [Mass/Vol] 3.9 g/dL Normal 3.4-4.8 [facility] Comment on above: Order Comment: Order Date: 05/15/25Order Info: 0786-1 - CMPOrder Info: 3051-0 - R1TLrflb Info: 3016-3 - TSHOrder Info: 57344-9 - IBCOrder Info: 2276-4 - FEROrder Info: 2284-8 - FOLSOrder Info: 3024-7 - T4F Performed By: #### L 506.0400, L500.4050, L501.9520, L503.6030, L100.0100, L100.9950, L503.6550, L501.77140 ####[facility] [address] [place], [address] Albumin/Globulin [Mass ratio] 1.7 {ratio} Normal 0.9-2.4 [facility] Comment on above: Order Comment: Order Date: 05/15/25Order Info: 0786-1 - CMPOrder Info: 1-0 - F5AIalon Info: 3 - TSHOrder Info: - IBCOrder Info: 2276-02 - FEROrder Info: 2284-06 - FOLSOrder Info: 3024-7 - T4F Performed By: #### L 506.0400, L500.4050, L501.9520, L503.6030, L100.0100, L100.9950, L503.6550, L501.09571 ####[facility] [address] [place], [place], [id number] ALK PHOS 102 U/L Normal 35-104 [facility] Comment on above: Order Comment: Order Date: 05/15/25Order Info: 07- - CMPOrder Info: 0 - G3ZSqjgf Info: 3016-01 - TSHOrder Info: - IBCOrder Info: 2276-02 - FEROrder Info: 2284-06 - FOLSOrder Info: 3024-7 - T4F Performed By: #### L 506.0400, L500.4050, L501.9520, L503.6030, L100.0100, L100.9950, L503.6550, L501.35631 ####[facility] [address] [place], [place], [id number] ALT [Catalytic activity/Vol] 14 U/L Normal <=34 [facility] Comment on above: Order Comment: Order Date: 05/15/25Order Info: 0786-1 - CMPOrder Info: 3050-0 - S8EGszme Info: 3 - TSHOrder Info: - IBCOrder Info: 2276-02 - FEROrder Info: 8 - FOLSOrder Info: 3024-7 - T4F Performed By: #### L 506.0400, L500.4050, L501.9520, L503.6030, L100.0100, L100.9950, L503.6550, L501.94761 ####[facility] [address] [place], [place], [phone] [Catalytic activity/Vol] 23 U/L Normal <=31 [facility] Comment on above: Order Comment: Order Date: 05/15/25Order Info: 0786-1 - CMPOrder Info: 3051-0 - D6PBruzz Info: 3016-3 - TSHOrder Info: 88795-8 - IBCOrder Info: 227-4 - FEROrder Info: 228-8 - FOLSOrder Info: 3024-7 - T4F Performed By: #### L 506.0400, L500.4050, L501.9520, L503.6030, L100.0100, L100.9950, L503.6550, L501.30161 ####[facility] [address] [place], [address] Bilirubin [Mass/Vol] 0.18 mg/dL Normal 0.00-1.30 [facility] Comment on above: Order Comment: Order Date: 05/15/25Order Info: 0786-1 - CMPOrder Info: 3051-0 - X1RZdhla Info: 6-3 - TSHOrder Info: 27200-7 - IBCOrder Info: 2275-4 - FEROrder Info: 8 - FOLSOrder Info: 3024-7 - T4F Performed By: #### L 506.0400, L500.4050, L501.9520, L503.6030, L100.0100, L100.9950, L503.6550, L501.38236 ####[facility] [address] [place], [place], [phone]) BUN/CRE 22.7 RATIO High 10-20 [facility] Comment on above: Order Comment: Order Date: 05/15/25Order Info: 0786-1 - CMPOrder Info: 3051-0 - U0ROqcsd Info: 3016-3 - TSHOrder Info: 73590-0 - IBCOrder Info: 227-4 - FEROrder Info: 2284-06 - FOLSOrder Info: 3023-7 - T4F Performed By: #### L 506.0400, L500.4050, L501.9520, L503.6030, L100.0100, L100.9950, L503.6550, L501.32076 ####[facility] [address] [place], [address] Calcium [Mass/Vol] 9.1 mg/dL Normal 7.6-11.0 [facility] Comment on above: Order Comment: Order Date: 05/15/25Order Info: 07-1 - CMPOrder Info: 0 - Q6PAlcos Info: 3016-01 - TSHOrder Info: - IBCOrder Info: 2276-02 - FEROrder Info: 2284-06 - FOLSOrder Info: 7 - T4F Performed By: #### L 506.0400, L500.4050, L501.9520, L503.6030, L100.0100, L100.9950, L503.6550, L501.56869 ####[facility] [address] [place], [address] Chloride [Moles/Vol] 100 mmol/L Normal 98-108 [facility] Comment on above: Order Comment: Order Date: 05/15/25Order Info: 0786-1 - CMPOrder Info: 0 - F9YEscfl Info: 3 - TSHOrder Info: - IBCOrder Info: 2276-02 - FEROrder Info: 2284-06 - FOLSOrder Info: 3023-7 - T4F Performed By: #### L 506.0400, L500.4050, L501.9520, L503.6030, L100.0100, L100.9950, L503.6550, L501.14275 ####[facility] [address] [place], [address] CO2 [Moles/Vol] 25.0 mmol/L Normal 21.0-32.0 [facility] Comment on above: Order Comment: Order Date: 05/15/25Order Info: 0786-1 - CMPOrder Info: 3051-0 - C5FLpazd Info: 3016-3 - TSHOrder Info: 15151-0 - IBCOrder Info: 2276-02 - FEROrder Info: 2284-06 - FOLSOrder Info: 3024-7 - T4F Performed By: #### L 506.0400, L500.4050, L501.9520, L503.6030, L100.0100, L100.9950, L503.6550, L501.69963 ####[facility] [address] [place], [place], [address] Creatinine [Mass/Vol] 1.13 mg/dL Normal 0.70-1.20 [facility] Comment on above: Order Comment: Order Date: 05/15/25Order Info: 07-1 - CMPOrder Info: 3051-0 - J6CIftxl Info: 6-3 - TSHOrder Info: 98206-4 - IBCOrder Info: 2276-02 - FEROrder Info: 2284-06 - FOLSOrder Info: 3023-7 - T4F Performed By: #### L 506.0400, L500.4050, L501.9520, L503.6030, L100.0100, L100.9950, L503.6550, L501.37036 ####[facility] [address] [place], [place], [address] GAP 11 Normal 5-15 [facility] Comment on above: Order Comment: Order Date: 05/15/25Order Info: 0786-1 - CMPOrder Info: 3051-0 - W9NJaooo Info: 3016-3 - TSHOrder Info: 54966-1 - IBCOrder Info: 2276-02 - FEROrder Info: 2284-06 - FOLSOrder Info: 3024-7 - T4F Performed By: #### L 506.0400, L500.4050, L501.9520, L503.6030, L100.0100, L100.9950, L503.6550, L501.40563 ####[facility] [address] [place], [address] GFR/1.73 sq M.predicted among non-blacks MDRD (S/P/Bld) [Vol rate/Area] 52 mL/min/{1.73_m2} Low >60 [facility] Comment on above: Order Comment: Order Date: 05/15/25Order Info: 0786-1 - CMPOrder Info: 0 - K6OGekvk Info: 3 - TSHOrder Info: 66301-8 - IBCOrder Info: 2276-02 - FEROrder Info: 2284-06 - FOLSOrder Info: 7 - T4F Result Comment: mL/m in/1.73m2 CKD-EPI Creatinine Equation (2020) Performed By: #### L 506.0400, L500.4050, L501.9520, L503.6030, L100.0100, L100.9950, L503.6550, L501.01750 ####[facility] [address] [place], [address] Globulin (S) [Mass/Vol] 2.3 g/dL Normal 2.2-4.2 [facility] Comment on above: Order Comment: Order Date: 05/15/25Order Info: 0786-1 - CMPOrder Info: 3050-0 - S3WQwwqc Info: 6-3 - TSHOrder Info: 06290-0 - IBCOrder Info: 2276-02 - FEROrder Info: 8 - FOLSOrder Info: 7 - T4F Performed By: #### L 506.0400, L500.4050, L501.9520, L503.6030, L100.0100, L100.9950, L503.6550, L501.47810 ####[facility] [address] [place], [address] Glucose [Mass/Vol] 105 mg/dL High 70-99 [facility] Comment on above: Order Comment: Order Date: 05/15/25Order Info: 785-1 - CMPOrder Info: 1-0 - A6UAegji Info: 6-3 - TSHOrder Info: 53317-0 - IBCOrder Info: 2276-02 - FEROrder Info: 2284-06 - FOLSOrder Info: 3023-7 - T4F Performed By: #### L 506.0400, L500.4050, L501.9520, L503.6030, L100.0100, L100.9950, L503.6550, L501.67365 ####[facility] [address] [place], [place], [address](011) Potassium [Moles/Vol] 4.5 mmol/L Normal 3.3-5.1 [facility] Comment on above: Order Comment: Order Date: 05/15/25Order Info: 785-11 - CMPOrder Info: 0 - I9HPtnvv Info: 3 - TSHOrder Info: - IBCOrder Info: 2276-02 - FEROrder Info: 2284-06 - FOLSOrder Info: 3023-7 - T4F Performed By: #### L 506.0400, L500.4050, L501.9520, L503.6030, L100.0100, L100.9950, L503.6550, L501.35636 ####[facility] [address] [place], [address] Sodium [Moles/Vol] 136 mmol/L Normal 133-145 [facility] Comment on above: Order Comment: Order Date: 05/15/25Order Info: 785-1 - CMPOrder Info: 3050-0 - L6BLzpvv Info: 63 - TSHOrder Info: 67206-2 - IBCOrder Info: 2276-02 - FEROrder Info: 2284-06 - FOLSOrder Info: 3023-7 - T4F Performed By: #### L 506.0400, L500.4050, L501.9520, L503.6030, L100.0100, L100.9950, L503.6550, L501.96128 ####[facility] [address] [place], [address] T PROT 6.2 g/dL Normal 5.9-8.4 [facility] Comment on above: Order Comment: Order Date: 05/15/25Order Info: 0786-1 - CMPOrder Info: 0 - H5JLlrdp Info: 3 - TSHOrder Info: - IBCOrder Info: 2276-02 - FEROrder Info: 2284-06 - FOLSOrder Info: 3024-05 - T4F Performed By: #### L 506.0400, L500.4050, L501.9520, L503.6030, L100.0100, L100.9950, L503.6550, L501.09664 ####[facility] [address] [place], [address] Urea nitrogen [Mass/Vol] 26 mg/dL High 4-19 [facility] Comment on above: Order Comment: Order Date: 05/15/25Order Info: 0786 - CMPOrder Info: 0 - E9FUzwpz Info: 3 - TSHOrder Info: - IBCOrder Info: 2276-02 - FEROrder Info: 2284-06 - FOLSOrder Info: 7 - T4F Performed By: #### L 506.0400, L500.4050, L501.9520, L503.6030, L100.0100, L100.9950, L503.6550, L501.49184 ####[facility] [address] [place], [address] Eosinophil percentageOrdered By: Daron Benton on 05-15-2025 Eosinophils/100 WBC (Bld) 9.3 % High 0-5 [facility] Erythrocyte distribution wid th ratioOrdered By: Daron Benton on 05-15-2025 Erythrocyte distribution width (RBC) [Ratio] 19.3 % High 11.6-14.6 [facility] Erythrocyte distribution wid th standard deviationOrdered By: Daron Benton on 05-15-2025 Erythrocyte distribution width (RBC) [Ratio] 61.2 fl High 35.1-43.9 [facility] Ferritinon 05-15-2025 Ferritin [Mass/Vol] 19 ng/mL Low 22-378 [facility] Comment on above: Order Comment: Order Date: 05/15/25Order Info: 0786-1 - CMPOrder Info: 3051-0 - K6HYgnxi Info: 3016-3 - TSHOrder Info: 13012-5 - IBCOrder Info: 2276 - FEROrder Info: 22848 - FOLSOrder Info: 3024-7 - T4F Performed By: #### L 506.0400, L500.4050, L501.9520, L503.6030, L100.0100, L100.9950, L503.6550, L501.82170 ####[facility] [address] [place], [place], [id number] Folate [Moles/volume] in Ser um or PlasmaOrdered By: Daron Benton on 05-15-2025 Folate [Moles/Vol] 8.24 ng/mL 4.60-34.80 [facility] Folates,Serum (Folic Acid)on 05-15-2025 FOLATES,SERUM 8.24 ng/mL Normal 4.60-34.80 [facility] Comment on above: Order Comment: N Performed By: #### L 503.0106, L3300.6750, L506.0200 ####[facility] [address] [place], [address] Free T3on 05-15-2025 Free T3 [Mass/Vol] 2.7 pg/mL Normal 2.18-3.98 [facility] Comment on above: Order Comment: Order Date: 05/15/25Order Info: 0786-1 - CMPOrder Info: 3051-0 - Q1JKsklc Info: 3016-3 - TSHOrder Info: 75144-4 - IBCOrder Info: 2276-4 - FEROrder Info: 2284-8 - FOLSOrder Info: 3024-7 - T4F Performed By: #### L 506.0400, L500.4050, L501.9520, L503.6030, L100.0100, L100.9950, L503.6550, L501.72302 ####[facility] [address] [place], [address] Free V0Ziliwyp By: Daron swanson on 05-15-2025 Free T3 [Mass/Vol] 2.7 pg/mL 2.18-3.98 [facility] Glomerular filtration rate ( GFR) estimation/1.73 sq m using serum, plasma, or whole bOrdered By: Daron Benton on 05-15-2025 GFR/1.73 sq M.predicted among non-blacks MDRD (S/P/Bld) [Vol rate/Area] 52 mL/min/{1.73_m2} Low >60 [facility] Hematocrit Auto (Bld) [Volum e fraction]Ordered By: Daron Benton on 05-15-2025 Hematocrit (Bld) [Volume fraction] 24.4 % Low 37-47 [facility] Hemoglobin measurementOrdere d By: Daron Benton on 05-15-2025 Hemoglobin (Bld) [Mass/Vol] 7.4 g/dL Low 12.0-15.0 [facility] Hypochromatic red blood cell detectionOrdered By: Daron Benton on 05-15-2025 Hypochromia Ql (Bld) 1+ [facility] Immature granulocytes/100 WB C Auto (Bld)Ordered By: Daron Benton on 05-15-2025 Immature granulocytes/100 WBC (Bld) 0.600 % 0.0-0.9 [facility] Iron measurement (mass/mass) Ordered By: aDron Benton on 05-15-2025 Iron (Unsp spec) [Mass/Mass] 48 ug/dL Low 50-170 [facility] Iron+Iron Binding Capacityon 05-15-2025 Iron [Mass/Vol] 48 ug/dL Low 50-170 [facility] Comment on above: Order Comment: Order Date: 05/15/25Order Info: 0786-1 - CMPOrder Info: 3050-0 - O9QIwzeb Info: 3 - TSHOrder Info: 58651-5 - IBCOrder Info: 2276-02 - FEROrder Info: 2284-06 - FOLSOrder Info: 3024-7 - T4F Performed By: #### L 506.0400, L500.4050, L501.9520, L503.6030, L100.0100, L100.9950, L503.6550, L501.60512 ####[facility] [address] [place], [place], [address] IRON SATURATION 13.0 Normal 13-59 [facility] Comment on above: Order Comment: Order Date: 05/15/25Order Info: 07-1 - CMPOrder Info: 0 - U9WXeshd Info: 3 - TSHOrder Info: - IBCOrder Info: 2276-02 - FEROrder Info: 2284-06 - FOLSOrder Info: 3024-7 - T4F Performed By: #### L 506.0400, L500.4050, L501.9520, L503.6030, L100.0100, L100.9950, L503.6550, L501.98461 ####[facility] [address] [place], [place], [address](829) TIBC 379 ug/dL Normal 250-450 [facility] Comment on above: Order Comment: Order Date: 05/15/25Order Info: 0786-1 - CMPOrder Info: 3050-0 - P1UBktpp Info: 3015-3 - TSHOrder Info: - IBCOrder Info: 2276-02 - FEROrder Info: 8 - FOLSOrder Info: 3024-7 - T4F Performed By: #### L 506.0400, L500.4050, L501.9520, L503.6030, L100.0100, L100.9950, L503.6550, L501.25739 ####[facility] [address] [place], [address] UIBC 331 ug/dL Normal 228-428 [facility] Comment on above: Order Comment: Order Date: 05/15/25Order Info: 0786-1 - CMPOrder Info: 3051-0 - I3LBxzvc Info: 3016-3 - TSHOrder Info: 64292-2 - IBCOrder Info: 2275-4 - FEROrder Info: 2284-06 - FOLSOrder Info: 3024-7 - T4F Performed By: #### L 506.0400, L500.4050, L501.9520, L503.6030, L100.0100, L100.9950, L503.6550, L501.70404 ####[facility] [address] [place], [address] MCV (mean corpuscular volume ) determinationOrdered By: Daron Benton on 05-15-2025 MCV (RBC) [Entitic vol] 87.5 fL 81-99 [facility] Mean corpuscular hemoglobin (MCH) determinationOrdered By: Daron Benton on 05-15-2025 MCH (RBC) [Entitic mass] 26.5 pg Low 27.0-32.0 [facility] Monocyte percentageOrdered B y: Daron Benton on 05-15-2025 Monocytes/100 WBC (Bld) 5.9 % 0-10 [facility] Neutrophil percentageOrdered By: Daron Benton on 05-15-2025 Neutrophils/100 WBC (Bld) 70.4 % High 47-70 [facility] No Panel InformationOrdered By: Daron Benton on 05-15-2025 1+ [facility] 23 U/L <32 [facility] 331 ug/dL 228-428 [facility] Platelet countOrdered By: Alex Benton on 05-15-2025 Platelets (Bld) [#/Vol] 213 10*3/uL 150-450 [facility] Platelet estimateOrdered By: Daron Benton on 05-15-2025 Platelets LM Ql (Bld) ADEQUATE ADEQ [facility] Potassium measurement (mass/ volume)Ordered By: Daron Benton on 05-15-2025 Potassium (Unsp spec) [Mass/Vol] 4.5 mmol/L 3.3-5.1 [facility] RBC Auto (Bld) [#/Vol]Ordere d By: Daron Benton on 05-15-2025 RBC (Bld) [#/Vol] 2.79 10*6/uL Low 4.2-5.4 [facility] Retic Panelon 05-15-2025 IM RET FRACTION 25.70 High 3.00-15.90 [facility] Comment on above: Order Comment: Order Date: 05/15/25Order Info: 0184-1 - CBCDOrder Info: 4679-7 - RETIC Performed By: #### L 506.0400, L500.4050, L501.9520, L503.6030, L100.0100, L100.9950, L503.6550, L501.45872 ####[facility] [address] [place], [place], [address] RET-HE 25.2 pg Low 30-35 [facility] Comment on above: Order Comment: Order Date: 05/15/25Order Info: 0184-1 - CBCDOrder Info: 4679-7 - RETIC Performed By: #### L 506.0400, L500.4050, L501.9520, L503.6030, L100.0100, L100.9950, L503.6550, L501.33761 ####[facility] [address] [place], [place], [address] Retic Count 4.47 High 0.5-1.5 [facility] Comment on above: Order Comment: Order Date: 05/15/25Order Info: 0184-1 - CBCDOrder Info: 4679-7 - RETIC Performed By: #### L 506.0400, L500.4050, L501.9520, L503.6030, L100.0100, L100.9950, L503.6550, L501.64520 ####[facility] [address] [place], [address] Reticulocyte hemoglobin equi valent (RET-He) measurementOrdered By: Daron Benton on 05-15-2025 Hemoglobin (Reticulocytes) [Entitic mass] 25.2 pg Low 30-35 [facility] Reticulocytes Auto (Bld) [#/ Vol]Ordered By: Daron Benton on 05-15-2025 Reticulocytes/100 RBC (Bld) 4.47 % High 0.5-1.5 [facility] Serum creatinine measurement (mass/volume)Ordered By: Daron Benton on 05-15-2025 Creatinine [Mass/Vol] 1.13 mg/dL 0.70-1.20 [facility] Serum globulin measurementOr dered By: Daron Benton on 05-15-2025 Globulin (S) [Mass/Vol] 2.3 g/dL 2.2-4.2 [facility] Serum glucose measurement (m ass/volume)Ordered By: Daron Benton on 05-15-2025 Glucose [Mass/Vol] 105 mg/dL High 70-99 [facility] Serum or plasma alanine pizarro otransferase (ALT) measurementOrdered By: Daron Benton on 05-15-2025 ALT [Catalytic activity/Vol] 14 U/L <35 [facility] Serum or plasma albumin stefania urement (mass/volume)Ordered By: Daron Benton on 05-15-2025 Albumin [Mass/Vol] 3.9 g/dL 3.4-4.8 [facility] Serum or plasma albumin/glob ulin mass ratioOrdered By: Daron Benton on 05-15-2025 Albumin/Globulin [Mass ratio] 1.7 {ratio} 0.9-2.4 [facility] Serum or plasma alkaline anthony sphatase measurementOrdered By: Daron Benton on 05-15-2025 ALP [Catalytic activity/Vol] 102 U/L 35-104 [facility] Serum or plasma calcium stefania urement (mass/volume)Ordered By: Daron Benton on 05-15-2025 Calcium [Mass/Vol] 9.1 mg/dL 7.6-11.0 [facility] Serum or plasma ferritin felicia surement (mass/volume)Ordered By: Daron Benton on 05-15-2025 Ferritin [Mass/Vol] 19 ng/mL Low 22-378 [facility] Serum or plasma iron saturat ion measurement (mass fraction)Ordered By: Daron Benton on 05-15-2025 Iron saturation [Mass fraction] 13.0 % 13-59 [facility] Serum or plasma thyroperoxid ase antibody assay (units/volume)Ordered By: Daron Benton on 05-15-2025 TPO Ab Qn [IU]/mL 0-34 [facility] Serum or plasma urea nitroge n measurement (mass/volume)Ordered By: Daron Benton on 05-15-2025 Urea nitrogen [Mass/Vol] 26 mg/dL High 4-19 [facility] Sodium levelOrdered By: Daron Benton on 05-15-2025 Sodium [Moles/Vol] 136 mmol/L 133-145 [facility] T4 Free Directon 05-15-2025 T4 FREE DIRECT 1.50 ng/dL High 0.76-1.46 [facility] Comment on above: Order Comment: Order Date: 05/15/25Order Info: 0786-1 - CMPOrder Info: 3051-0 - E6CPnuqs Info: 3016-3 - TSHOrder Info: 93333-9 - IBCOrder Info: 2276-4 - FEROrder Info: 2284-8 - FOLSOrder Info: 3024-7 - T4F Performed By: #### L 506.0400, L500.4050, L501.9520, L503.6030, L100.0100, L100.9950, L503.6550, L501.93033 ####[facility] [address] [place], [address] T4 freeOrdered By: Daron swanson on 05-15-2025 Free T4 [Mass/Vol] 1.50 ng/dL High 0.76-1.46 [facility] TSH DL <= 0.005 mIU/L QnOrde red By: Daron Benton on 05-15-2025 TSH Qn 1.680 uIU/mL 0.300-4.20 0 [facility] Thyroid Stim Hormone (TSH)on 05-15-2025 TSH 1.680 uIU/mL Normal 0.300-4.20 0 [facility] Comment on above: Order Comment: Order Date: 05/15/25Order Info: 0786-1 - CMPOrder Info: 3051-0 - R8MJbraf Info: 3016-3 - TSHOrder Info: 98856-0 - IBCOrder Info: 2276-02 - FEROrder Info: 2284-06 - FOLSOrder Info: 3024-05 - T4F Performed By: #### L 506.0400, L500.4050, L501.9520, L503.6030, L100.0100, L100.9950, L503.6550, L501.62444 ####[facility] [address] [place], [place], [id number] Total proteinOrdered By: Nila Benton on 05-15-2025 Protein [Mass/Vol] 6.2 g/dL 5.9-8.4 [facility] Vitamin B12on 05-15-2025 Cobalamin (Vitamin B12) [Mass/Vol] 366 pg/mL Normal 180-914 [facility] Comment on above: Order Comment: Order Date: 05/15/25Order Info: 0786-1 - CMPOrder Info: 3051-0 - N1UGeodd Info: 3016-3 - TSHOrder Info: 13050-5 - IBCOrder Info: 2276-02 - FEROrder Info: 2284-06 - FOLSOrder Info: 3024-05 - T4F Performed By: #### L 503.0106, L3300.6750, L506.0200 ####[facility] [address] [place], [place], [id number] Vitamin B12 ser/plasOrdered By: Daron Benton on 05-15-2025 Cobalamin (Vitamin B12) [Mass/Vol] 366 pg/mL 180-914 [facility] White blood cell (WBC) count Ordered By: Daron Benton on 05-15-2025 WBC (Bld) [#/Vol] 8.4 10*3/uL 4.4-11.0 [facility] 36on 05-06-2025 36 Faxed New Auth to [facility] @ [phone], Valid 05/06/25 Thru 07/05/25 Brain MRI wo Contrast. Normal [facility] Gastroenterology Visit Repor ton 05-06-2025 Gastroenterology Visit Report Normal [facility] 36on 05-05-2025 36 Name of caller: [facility] Contact phone number: [phone] Relationship to Patient: Imaging Provider: Robert Practice: neuro Chief Complaint/Reason for Call: Viki states patients prior auth is expiring and will need a new one for patient schedule MRI on 05/20 @130 fax # [phone]. Normal [facility] 36on 04-24-2025 36 Baclofen 20mg sent t o [facility] in [place]. [facility] 36 Name of caller: Parvez santos Contact phone number: [phone] Relationship to Patient: patient Provider: AURORA Lynn Practice: Neurology Chief Complaint/Reason for Call: Angélica advised that she just got out of the hospital, and she needs her Baclofen script sent in to her [facility] [address] [place] [address], [place] - [address] [[id number]]. She does not use the [facility] any longer, and she is completely out. Best time of day caller can be reached: any Patient advised that office/PCP has 24-48 business hours to return their call: Yes [facility] Anion gap in Serum or Plasma Ordered By: Roman Mckeon on 04-22-2025 Anion gap [Moles/Vol] 12 mmol/L 5-15 [facility] BUN/creatinine ratioOrdered By: Roman Mckeon on 04-22-2025 Urea nitrogen/Creatinine [Mass ratio] 7.0 mg/mg Low - [facility] Basic Metabolic Profile (BMP )on 04-22-2025 BUN/CRE 7.0 RATIO Low - [facility] Comment on above: Performed By: #### L 500.2500, L100.0500 ####[facility] [address] [place], [address] Calcium [Mass/Vol] 8.3 mg/dL Normal 7.6-11.0 [facility] Comment on above: Performed By: #### L 500.2500, L100.0500 ####[facility] [address] [place], [address] Chloride [Moles/Vol] 107 mmol/L Normal 98-108 [facility] Comment on above: Performed By: #### L 500.2500, L100.0500 ####[facility] [address] [place], [address] CO2 [Moles/Vol] 18.8 mmol/L Low 21.0-32.0 [facility] Comment on above: Performed By: #### L 500.2500, L100.0500 ####[facility] [address] [place], [address] Creatinine [Mass/Vol] 1.08 mg/dL Normal 0.70-1.20 [facility] Comment on above: Performed By: #### L 500.2500, L100.0500 ####[facility] [address] [place], [address] ECRCL 34.97 ml/min Low 50-250 [facility] Comment on above: Performed By: #### L 500.2500, L100.0500 ####[facility] [address] [place], [address] GAP 12 Normal 5-15 [facility] Comment on above: Performed By: #### L 500.2500, L100.0500 ####[facility] [address] [place], [address] GFR/1.73 sq M.predicted among non-blacks MDRD (S/P/Bld) [Vol rate/Area] 55 mL/min/{1.73_m2} Low >60 [facility] Comment on above: Result Comment: mL/m in/1.73m2 CKD-EPI Creatinine Equation (2020) Performed By: #### L 500.2500, L100.0500 ####[facility] [address] [place], [address] Glucose [Mass/Vol] 89 mg/dL Normal 70-99 [facility] Comment on above: Performed By: #### L 500.2500, L100.0500 ####[facility] [address] [place], [address] Potassium [Moles/Vol] 3.8 mmol/L Normal 3.3-5.1 [facility] Comment on above: Performed By: #### L 500.2500, L100.0500 ####[facility] [address] [place], [address] Sodium [Moles/Vol] 137 mmol/L Normal 133-145 [facility] Comment on above: Performed By: #### L 500.2500, L100.0500 ####[facility] [address] [place], [address] Urea nitrogen [Mass/Vol] 8 mg/dL Normal 4-19 [facility] Comment on above: Performed By: #### L 500.2500, L100.0500 ####[facility] [address] [place], [address] CBC-Complete Blood Cnt No Di ffon 04-22-2025 Erythrocyte distribution width (RBC) [Ratio] 17.5 % High 11.6-14.6 [facility] Comment on above: Performed By: #### L 500.2500, L100.0500 ####[facility] [address] [place], [address] Hematocrit (Bld) [Volume fraction] 29.2 % Low 37-47 [facility] Comment on above: Performed By: #### L 500.2500, L100.0500 ####[facility] [address] [place], [address] Hemoglobin (Bld) [Mass/Vol] 9.4 g/dL Low 12.0-15.0 [facility] Comment on above: Performed By: #### L 500.2500, L100.0500 ####[facility] [address] [place], [address] MCH (RBC) [Entitic mass] 26.8 pg Low 27.0-32.0 [facility] Comment on above: Performed By: #### L 500.2500, L100.0500 ####[facility] [address] [place], [address] MCHC (RBC) [Mass/Vol] 32.2 g/dL Normal 32-36 [facility] Comment on above: Performed By: #### L 500.2500, L100.0500 ####[facility] [address] [place], [address] MCV (RBC) [Entitic vol] 83.2 fL Normal 81-99 [facility] Comment on above: Performed By: #### L 500.2500, L100.0500 ####[facility] [address] [place], [address] Platelet mean volume (Bld) [Entitic vol] 9.7 fL Normal 6.2-12.0 [facility] Comment on above: Performed By: #### L 500.2500, L100.0500 ####[facility] [address] [place], [address] Platelets (Bld) [#/Vol] 152 10*3/uL Normal 150-450 [facility] Comment on above: Performed By: #### L 500.2500, L100.0500 ####[facility] [address] [place], [address] RBC (Bld) [#/Vol] 3.51 10*6/uL Low 4.2-5.4 [facility] Comment on above: Performed By: #### L 500.2500, L100.0500 ####[facility] [address] [place], [address] RDW SD 52.6 fl High 35.1-43.9 [facility] Comment on above: Performed By: #### L 500.2500, L100.0500 ####[facility] [address] [place], [address] WBC (Bld) [#/Vol] 7.1 10*3/uL Normal 4.4-11.0 [facility] Comment on above: Performed By: #### L 500.2500, L100.0500 ####[facility] [address] [place], [address] Carbon dioxide, total [Moles /volume] in Central venous bloodOrdered By: Roman Mckeon on 04-22-2025 CO2 [Moles/Vol] 18.8 mmol/L Low 21.0-32.0 [facility] Chloride assayOrdered By: Edgar Mckeon on 04-22-2025 Chloride [Moles/Vol] 107 mmol/L 98-108 [facility] Colonoscopy Reporton 025 Colonoscopy Report Normal [facility] Erythrocyte distribution wid th ratioOrdered By: Roman Mckeon on 04-22-2025 Erythrocyte distribution width (RBC) [Ratio] 17.5 % High 11.6-14.6 [facility] Erythrocyte distribution wid th standard deviationOrdered By: Roman Mckeon on 04-22-2025 Erythrocyte distribution width (RBC) [Ratio] 52.6 fl High 35.1-43.9 [facility] Glomerular filtration rate ( GFR) estimation/1.73 sq m using serum, plasma, or whole bOrdered By: Roman Mckeon on 04-22-2025 GFR/1.73 sq M.predicted among non-blacks MDRD (S/P/Bld) [Vol rate/Area] 55 mL/min/{1.73_m2} Low >60 [facility] Hematocrit Auto (Bld) [Volum e fraction]Ordered By: Roman Mckeon on 04-22-2025 Hematocrit (Bld) [Volume fraction] 29.2 % Low 37-47 [facility] Hemoglobin measurementOrdere d By: Roman Mckeon on 04-22-2025 Hemoglobin (Bld) [Mass/Vol] 9.4 g/dL Low 12.0-15.0 [facility] MCV (mean corpuscular volume ) determinationOrdered By: Roman Mckeon on 04-22-2025 MCV (RBC) [Entitic vol] 83.2 fL 81-99 [facility] MR/POSTOP.ANEon 04-22-2025 MR/POSTOP.ANE Normal [facility] Mean corpuscular hemoglobin (MCH) determinationOrdered By: Roman Mckeon on 04-22-2025 MCH (RBC) [Entitic mass] 26.8 pg Low 27.0-32.0 [facility] Platelet countOrdered By: Edgar Mckeon on 04-22-2025 Platelets (Bld) [#/Vol] 152 10*3/uL 150-450 [facility] Potassium measurement (mass/ volume)Ordered By: Roman Mckeon on 04-22-2025 Potassium (Unsp spec) [Mass/Vol] 3.8 mmol/L 3.3-5.1 [facility] RBC Auto (Bld) [#/Vol]Ordere d By: Roman Mckeon on 04-22-2025 RBC (Bld) [#/Vol] 3.51 10*6/uL Low 4.2-5.4 [facility] Serum creatinine measurement (mass/volume)Ordered By: Roman Mckeon on 04-22-2025 Creatinine [Mass/Vol] 1.08 mg/dL 0.70-1.20 [facility] Serum glucose measurement (m ass/volume)Ordered By: Roman Mckeon on 04-22-2025 Glucose [Mass/Vol] 89 mg/dL 70-99 [facility] Serum or plasma calcium stefania urement (mass/volume)Ordered By: Roman Mckeon on 04-22-2025 Calcium [Mass/Vol] 8.3 mg/dL 7.6-11.0 [facility] Serum or plasma urea nitroge n measurement (mass/volume)Ordered By: Roman Mckeon on 04-22-2025 Urea nitrogen [Mass/Vol] 8 mg/dL 4-19 [facility] Sodium levelOrdered By: Domingo Mckeon on 04-22-2025 Sodium [Moles/Vol] 137 mmol/L 133-145 [facility] Surgery Specimen Level Willi 04-22-2025 Surgery Specimen Level IV Normal [facility] Comment on above: Performed By: #### P SUIV ####[facility] [address] [place], [address] White blood cell (WBC) count Ordered By: Roman Mckeon on 04-22-2025 WBC (Bld) [#/Vol] 7.1 10*3/uL 4.4-11.0 [facility] Basic Metabolic Profile (BMP )on 04-21-2025 BUN/CRE 9.9 RATIO Low 10-20 [facility] Comment on above: Performed By: #### L 100.0500, L500.2500 ####[facility] [address] [place], [address] Calcium [Mass/Vol] 8.7 mg/dL Normal 7.6-11.0 [facility] Comment on above: Performed By: #### L 100.0500, L500.2500 ####[facility] [address] [place], [address] Chloride [Moles/Vol] 107 mmol/L Normal 98-108 [facility] Comment on above: Performed By: #### L 100.0500, L500.2500 ####[facility] [address] [place], [address] CO2 [Moles/Vol] 24.7 mmol/L Normal 21.0-32.0 [facility] Comment on above: Performed By: #### L 100.0500, L500.2500 ####[facility] [address] [place], [address] Creatinine [Mass/Vol] 1.21 mg/dL High 0.70-1.20 [facility] Comment on above: Performed By: #### L 100.0500, L500.2500 ####[facility] [address] [place], [address] ECRCL 31.21 ml/min Low 50-250 [facility] Comment on above: Performed By: #### L 100.0500, L500.2500 ####[facility] [address] [place], [address] GAP 9 Normal 5-15 [facility] Comment on above: Performed By: #### L 100.0500, L500.2500 ####[facility] [address] [place], [address] GFR/1.73 sq M.predicted among non-blacks MDRD (S/P/Bld) [Vol rate/Area] 48 mL/min/{1.73_m2} Low >60 [facility] Comment on above: Result Comment: mL/m in/1.73m2 CKD-EPI Creatinine Equation (2020) Performed By: #### L 100.0500, L500.2500 ####[facility] [address] [place], [address] Glucose [Mass/Vol] 85 mg/dL Normal 70-99 [facility] Comment on above: Performed By: #### L 100.0500, L500.2500 ####[facility] [address] [place], [address] Potassium [Moles/Vol] 3.1 mmol/L Low 3.3-5.1 [facility] Comment on above: Performed By: #### L 100.0500, L500.2500 ####[facility] [address] [place], [address] Sodium [Moles/Vol] 141 mmol/L Normal 133-145 [facility] Comment on above: Performed By: #### L 100.0500, L500.2500 ####[facility] [address] [place], [address] Urea nitrogen [Mass/Vol] 12 mg/dL Normal 4-19 [facility] Comment on above: Performed By: #### L 100.0500, L500.2500 ####[facility] [address] [place], [address] Bedside Glucoseon 04-21-2025 FINGERSTICK GLU 109 mg/dL High 74-106 [facility] Comment on above: Result Comment: YONY HARTMANN OF PATIENT CARE PER NURSING PROTOCOL Performed By: #### L 501.080 ####[facility] [address] [place], [address] Brain/Head without Contrasto n 04-21-2025 Brain/Head without Contrast Normal [facility] CBC-Complete Blood Cnt No Di ffon 04-21-2025 Erythrocyte distribution width (RBC) [Ratio] 17.2 % High 11.6-14.6 [facility] Comment on above: Performed By: #### L 100.0500, L500.2500 ####[facility] [address] [place], [address] Hematocrit (Bld) [Volume fraction] 31.7 % Low 37-47 [facility] Comment on above: Performed By: #### L 100.0500, L500.2500 ####[facility] [address] [place], [address] Hemoglobin (Bld) [Mass/Vol] 10.1 g/dL Low 12.0-15.0 [facility] Comment on above: Performed By: #### L 100.0500, L500.2500 ####[facility] [address] [place], [address] MCH (RBC) [Entitic mass] 26.5 pg Low 27.0-32.0 [facility] Comment on above: Performed By: #### L 100.0500, L500.2500 ####[facility] [address] [place], [address] MCHC (RBC) [Mass/Vol] 31.9 g/dL Low 32-36 [facility] Comment on above: Performed By: #### L 100.0500, L500.2500 ####[facility] [address] [place], [address] MCV (RBC) [Entitic vol] 83.2 fL Normal 81-99 [facility] Comment on above: Performed By: #### L 100.0500, L500.2500 ####[facility] [address] [place], [address] Platelet mean volume (Bld) [Entitic vol] 9.4 fL Normal 6.2-12.0 [facility] Comment on above: Performed By: #### L 100.0500, L500.2500 ####[facility] [address] [place], [address] Platelets (Bld) [#/Vol] 174 10*3/uL Normal 150-450 [facility] Comment on above: Performed By: #### L 100.0500, L500.2500 ####[facility] [address] [place], [address] RBC (Bld) [#/Vol] 3.81 10*6/uL Low 4.2-5.4 [facility] Comment on above: Performed By: #### L 100.0500, L500.2500 ####[facility] [address] [place], [address] RDW SD 51.9 fl High 35.1-43.9 [facility] Comment on above: Performed By: #### L 100.0500, L500.2500 ####[facility] [address] [place], [address] WBC (Bld) [#/Vol] 5.3 10*3/uL Normal 4.4-11.0 [facility] Comment on above: Performed By: #### L 100.0500, L500.2500 ####[facility] [address] [place], [address] EGD Reporton 04-21-2025 EGD Report Normal [facility] deOrdered By: Roman Mckeon on 04-21-2025 Glucose [Mass/Vol] 109 mg/dL High 74-106 [facility] MR/POSTOP.ANEon 04-21-2025 MR/POSTOP.ANE Normal [facility] MR/UOVARVSN7jj 04-21-2025 MR/POSTOPAN2 Normal [facility] Stool Occult Blood iFOBon STOB Positive Normal [facility] Comment on above: Performed By: #### M 100.7900 ####[facility] [address] [place], [address] Stool gastrointestinal hemog lobin detection by immunologic methodOrdered By: Sachin Murillo on 04-21-2025 Lower GI hemoglobin IA Ql (Stl) Positive Abnormal [facility] Basic Metabolic Profile (BMP )on 04-20-2025 BUN/CRE 13.9 RATIO Normal 10-20 [facility] Comment on above: Performed By: #### L 500.2500, L501.5200, L501.2300, L501.9520, L100.0500 ####[facility] [address] [place], [address] Calcium [Mass/Vol] 8.8 mg/dL Normal 7.6-11.0 [facility] Comment on above: Performed By: #### L 500.2500, L501.5200, L501.2300, L501.9520, L100.0500 ####[facility] [address] [place], [address] Chloride [Moles/Vol] 106 mmol/L Normal 98-108 [facility] Comment on above: Performed By: #### L 500.2500, L501.5200, L501.2300, L501.9520, L100.0500 ####[facility] [address] [place], [address] CO2 [Moles/Vol] 22.5 mmol/L Normal 21.0-32.0 [facility] Comment on above: Performed By: #### L 500.2500, L501.5200, L501.2300, L501.9520, L100.0500 ####[facility] [address] [place], [address] Creatinine [Mass/Vol] 1.23 mg/dL High 0.70-1.20 [facility] Comment on above: Performed By: #### L 500.2500, L501.5200, L501.2300, L501.9520, L100.0500 ####[facility] [address] [place], [address] ECRCL 30.70 ml/min Low 50-250 [facility] Comment on above: Performed By: #### L 500.2500, L501.5200, L501.2300, L501.9520, L100.0500 ####[facility] [address] [place], [address] GAP 12 Normal 5-15 [facility] Comment on above: Performed By: #### L 500.2500, L501.5200, L501.2300, L501.9520, L100.0500 ####[facility] [address] [place], [address] GFR/1.73 sq M.predicted among non-blacks MDRD (S/P/Bld) [Vol rate/Area] 47 mL/min/{1.73_m2} Low >60 [facility] Comment on above: Result Comment: mL/m in/1.73m2 CKD-EPI Creatinine Equation (2020) Performed By: #### L 500.2500, L501.5200, L501.2300, L501.9520, L100.0500 ####[facility] [address] [place], [address] Glucose [Mass/Vol] 75 mg/dL Normal 70-99 [facility] Comment on above: Performed By: #### L 500.2500, L501.5200, L501.2300, L501.9520, L100.0500 ####[facility] [address] [place], [address] Potassium [Moles/Vol] 3.4 mmol/L Normal 3.3-5.1 [facility] Comment on above: Performed By: #### L 500.2500, L501.5200, L501.2300, L501.9520, L100.0500 ####[facility] [address] [place], [address] Sodium [Moles/Vol] 140 mmol/L Normal 133-145 [facility] Comment on above: Performed By: #### L 500.2500, L501.5200, L501.2300, L501.9520, L100.0500 ####[facility] [address] [place], [address] Urea nitrogen [Mass/Vol] 17 mg/dL Normal 4-19 [facility] Comment on above: Performed By: #### L 500.2500, L501.5200, L501.2300, L501.9520, L100.0500 ####[facility] [address] [place], [address] CBC-Complete Blood Cnt No Di ffon 04-20-2025 Erythrocyte distribution width (RBC) [Ratio] 16.9 % High 11.6-14.6 [facility] Comment on above: Performed By: #### L 500.2500, L501.5200, L501.2300, L501.9520, L100.0500 ####[facility] [address] [place], [address] Hematocrit (Bld) [Volume fraction] 33.7 % Low 37-47 [facility] Comment on above: Performed By: #### L 500.2500, L501.5200, L501.2300, L501.9520, L100.0500 ####[facility] [address] [place], [address] Hemoglobin (Bld) [Mass/Vol] 10.6 g/dL Low 12.0-15.0 [facility] Comment on above: Performed By: #### L 500.2500, L501.5200, L501.2300, L501.9520, L100.0500 ####[facility] [address] [place], [address] MCH (RBC) [Entitic mass] 26.6 pg Low 27.0-32.0 [facility] Comment on above: Performed By: #### L 500.2500, L501.5200, L501.2300, L501.9520, L100.0500 ####[facility] [address] [place], [address] MCHC (RBC) [Mass/Vol] 31.5 g/dL Low 32-36 [facility] Comment on above: Performed By: #### L 500.2500, L501.5200, L501.2300, L501.9520, L100.0500 ####[facility] [address] [place], [address] MCV (RBC) [Entitic vol] 84.5 fL Normal 81-99 [facility] Comment on above: Performed By: #### L 500.2500, L501.5200, L501.2300, L501.9520, L100.0500 ####[facility] [address] [place], [address] Platelet mean volume (Bld) [Entitic vol] 9.9 fL Normal 6.2-12.0 [facility] Comment on above: Performed By: #### L 500.2500, L501.5200, L501.2300, L501.9520, L100.0500 ####[facility] [address] [place], [address] Platelets (Bld) [#/Vol] 146 10*3/uL Low 150-450 [facility] Comment on above: Performed By: #### L 500.2500, L501.5200, L501.2300, L501.9520, L100.0500 ####[facility] [address] [place], [address] RBC (Bld) [#/Vol] 3.99 10*6/uL Low 4.2-5.4 [facility] Comment on above: Performed By: #### L 500.2500, L501.5200, L501.2300, L501.9520, L100.0500 ####[facility] [address] [place], [address] RDW SD 52.5 fl High 35.1-43.9 [facility] Comment on above: Performed By: #### L 500.2500, L501.5200, L501.2300, L501.9520, L100.0500 ####[facility] [address] [place], [address] WBC (Bld) [#/Vol] 5.0 10*3/uL Normal 4.4-11.0 [facility] Comment on above: Performed By: #### L 500.2500, L501.5200, L501.2300, L501.9520, L100.0500 ####[facility] [address] [place], [place], [address] EGD Reporton 04-20-2025 EGD Report Normal [facility] Electrocardiogram reportOrde red By: Bhavik Smiley on 04-20-2025 EKG study [facility] Work Phone: MR/POSTOP.ANEon 04-20-2025 MR/POSTOP.ANE Normal [facility] MR/EPLTHCZS8wj 04-20-2025 MR/POSTOPAN2 Normal [facility] Magnesiumon 04-20-2025 Magnesium [Mass/Vol] 2.2 mg/dL Normal 1.5-2.2 [facility] Comment on above: Performed By: #### L 500.2500, L501.5200, L501.2300, L501.9520, L100.0500 ####[facility] [address] [place], [place], [address] Magnesium measurement (mass/ volume)Ordered By: Roman Mckeon on 04-20-2025 Magnesium (Unsp spec) [Mass/Vol] 2.2 mg/dL 1.5-2.2 [facility] Phosphoruson 04-20-2025 Phosphate [Mass/Vol] 3.5 mg/dL Normal 2.7-4.5 [facility] Comment on above: Performed By: #### L 500.2500, L501.5200, L501.2300, L501.9520, L100.0500 ####[facility] [address] [place], [place], [id number] TSH DL <= 0.005 mIU/L QnOrde red By: Storm Gómez on 04-20-2025 TSH Qn 5.620 uIU/mL High 0.300-4.20 0 [facility] Thyroid Stim Hormone (TSH)on 04-20-2025 TSH 5.620 uIU/mL High 0.300-4.20 0 [facility] Comment on above: Performed By: #### L 500.2500, L501.5200, L501.2300, L501.9520, L100.0500 ####[facility] [address] [place], [address] Absolute lymphocyte countOrd ered By: Sachin Murillo on 04-19-2025 Lymphocytes Auto (Unsp spec) [#/Vol] 0.78 10*3/uL Low 0.83-4.51 [facility] Automated lymphocyte count a s percentage of total leukocytesOrdered By: Sacihn Murillo on 04-19-2025 Lymphocytes/100 WBC Auto (Unsp spec) 11.1 % Low 19-41 [facility] Basic Metabolic Profile (BMP )on 04-19-2025 BUN/CRE 16.8 RATIO Normal 10-20 [facility] Comment on above: Performed By: #### L 100.0100, L500.2500 ####[facility] [address] [place], [address] Calcium [Mass/Vol] 8.1 mg/dL Normal 7.6-11.0 [facility] Comment on above: Performed By: #### L 100.0100, L500.2500 ####[facility] [address] [place], [address] Chloride [Moles/Vol] 106 mmol/L Normal 98-108 [facility] Comment on above: Performed By: #### L 100.0100, L500.2500 ####[facility] [address] [place], [address] CO2 [Moles/Vol] 22.1 mmol/L Normal 21.0-32.0 [facility] Comment on above: Performed By: #### L 100.0100, L500.2500 ####[facility] [address] [place], [address] Creatinine [Mass/Vol] 1.17 mg/dL Normal 0.70-1.20 [facility] Comment on above: Performed By: #### L 100.0100, L500.2500 ####[facility] [address] [place], [address] ECRCL 32.28 ml/min Low 50-250 [facility] Comment on above: Performed By: #### L 100.0100, L500.2500 ####[facility] [address] [place], [address] GAP 10 Normal 5-15 [facility] Comment on above: Performed By: #### L 100.0100, L500.2500 ####[facility] [address] [place], [address] GFR/1.73 sq M.predicted among non-blacks MDRD (S/P/Bld) [Vol rate/Area] 50 mL/min/{1.73_m2} Low >60 [facility] Comment on above: Result Comment: mL/m in/1.73m2 CKD-EPI Creatinine Equation (2020) Performed By: #### L 100.0100, L500.2500 ####[facility] [address] [place], [address] Glucose [Mass/Vol] 111 mg/dL High 70-99 [facility] Comment on above: Performed By: #### L 100.0100, L500.2500 ####[facility] [address] [place], [address] Potassium [Moles/Vol] 3.6 mmol/L Normal 3.3-5.1 [facility] Comment on above: Performed By: #### L 100.0100, L500.2500 ####[facility] [address] [place], [address] Sodium [Moles/Vol] 137 mmol/L Normal 133-145 [facility] Comment on above: Performed By: #### L 100.0100, L500.2500 ####[facility] [address] [place], [address] Urea nitrogen [Mass/Vol] 20 mg/dL High 4-19 [facility] Comment on above: Performed By: #### L 100.0100, L500.2500 ####[facility] [address] [place], [address] Basophil percentageOrdered B y: Sachin Murillo on 04-19-2025 Basophils/100 WBC (Bld) 0.4 % 0-1 [facility] CBC W/Diff, Automatedon Absolute Lymph 0.78 X10 3/uL Low 0.83-4.51 [facility] Comment on above: Performed By: #### L 100.0100, L500.2500 ####[facility] [address] [place], [address] Absolute Neut 5.2 X10 3/uL Normal 2.0-7.7 [facility] [facility] Comment on above: Performed By: #### L 100.0100, L500.2500 ####[facility] [address] [place], [address] Basophils/100 WBC (Bld) 0.4 % Normal 0-1 [facility] Comment on above: Performed By: #### L 100.0100, L500.2500 ####[facility] [address] [place], [address] Eosinophils/100 WBC (Bld) 1.9 % Normal 0-5 [facility] Comment on above: Performed By: #### L 100.0100, L500.2500 ####[facility] [address] [place], [address] Erythrocyte distribution width (RBC) [Ratio] 17.0 % High 11.6-14.6 [facility] Comment on above: Performed By: #### L 100.0100, L500.2500 ####[facility] [address] [place], [address] Hematocrit (Bld) [Volume fraction] 29.4 % Low 37-47 [facility] Comment on above: Performed By: #### L 100.0100, L500.2500 ####[facility] [address] [place], [address] Hemoglobin (Bld) [Mass/Vol] 9.5 g/dL Low 12.0-15.0 [facility] Comment on above: Performed By: #### L 100.0100, L500.2500 ####[facility] [address] [place], [address] IG% 0.400 Normal 0.0-0.9 [facility] Comment on above: Result Comment: IG% - Immature Granulocytes (promyelocytes, myelocytes andmetamyelocytes) > 1% indicates that a LEFT SHIFT is Present. Performed By: #### L 100.0100, L500.2500 ####[facility] [address] [place], [address] Lymphocytes/100 WBC (Bld) 11.1 % Low 19-41 [facility] Comment on above: Performed By: #### L 100.0100, L500.2500 ####[facility] [address] [place], [address] MCH (RBC) [Entitic mass] 27.1 pg Normal 27.0-32.0 [facility] Comment on above: Performed By: #### L 100.0100, L500.2500 ####[facility] [address] [place], [address] MCHC (RBC) [Mass/Vol] 32.3 g/dL Normal 32-36 [facility] Comment on above: Performed By: #### L 100.0100, L500.2500 ####[facility] [address] [place], [address] MCV (RBC) [Entitic vol] 84.0 fL Normal 81-99 [facility] Comment on above: Performed By: #### L 100.0100, L500.2500 ####[facility] [address] [place], [address] Monocytes/100 WBC (Bld) 11.3 % High 0-10 [facility] Comment on above: Performed By: #### L 100.0100, L500.2500 ####[facility] [address] [place], [address] Neutrophils/100 WBC (Bld) 74.9 % High 47-70 [facility] Comment on above: Performed By: #### L 100.0100, L500.2500 ####[facility] [address] [place], [address] Nucleated RBC (Bld) [#/Vol] 0.3 10*3/uL Normal 0-5 [facility] Comment on above: Performed By: #### L 100.0100, L500.2500 ####[facility] [address] [place], [address] Platelet mean volume (Bld) [Entitic vol] 9.8 fL Normal 6.2-12.0 [facility] Comment on above: Performed By: #### L 100.0100, L500.2500 ####[facility] [address] [place], [address] Platelets (Bld) [#/Vol] 133 10*3/uL Low 150-450 [facility] Comment on above: Performed By: #### L 100.0100, L500.2500 ####[facility] [address] [place], [address] RBC (Bld) [#/Vol] 3.50 10*6/uL Low 4.2-5.4 [facility] Comment on above: Performed By: #### L 100.0100, L500.2500 ####[facility] [address] [place], [address] RDW SD 51.9 fl High 35.1-43.9 [facility] Comment on above: Performed By: #### L 100.0100, L500.2500 ####[facility] [address] [place], [address] WBC (Bld) [#/Vol] 7.0 10*3/uL Normal 4.4-11.0 [facility] Comment on above: Performed By: #### L 100.0100, L500.2500 ####[facility] [address] [place], [address] Eosinophil percentageOrdered By: Sachin Murillo on 04-19-2025 Eosinophils/100 WBC (Bld) 1.9 % 0-5 [facility] HH, Hemoglobin AND Hematocri ton 04-19-2025 HCT Normal 37-47 [facility] Comment on above: Result Comment: CBC BEING DONE H H IS IN CBC Performed By: #### L 100.0600 ####[facility] [address] [place], [address] HGB Normal 12.0-15.0 [facility] Comment on above: Result Comment: CBC BEING DONE H H IS IN CBC Performed By: #### L 100.0600 ####[facility] [address] [place], [address] Hematocrit (Bld) [Volume fraction] 20.6 % Low 37-47 [facility] Comment on above: Performed By: #### L 100.0600 ####[facility] [address] [place], [address] Hemoglobin (Bld) [Mass/Vol] 6.3 g/dL Low 12.0-15.0 [facility] Comment on above: Performed By: #### L 100.0600 ####[facility] [address] [place], [address] Immature granulocytes/100 WB C Auto (Bld)Ordered By: Sachin Murillo on 04-19-2025 Immature granulocytes/100 WBC (Bld) 0.400 % 0.0-0.9 [facility] L499.0043on 04-19-2025 Trop T High Sen 24 ng/L High <=14 [facility] Comment on above: Performed By: #### L 499.0043 ####[facility] [address] [place], [place], [address] Lactic Acidon 04-19-2025 Lactate [Moles/Vol] mmol/L Normal 0.0-2.0 [facility] Comment on above: Performed By: #### L 503.6005 ####[facility] [address] [place], [place], [address] Monocyte percentageOrdered B y: Sachin Goinsrocio on 04-19-2025 Monocytes/100 WBC (Bld) 11.3 % High 0-10 [facility] Neutrophil percentageOrdered By: Sachin Adrianjessica on 04-19-2025 Neutrophils/100 WBC (Bld) 74.9 % High 47-70 [facility] 12 Lead EKGon 04-18-2025 12 Lead EKG Normal [facility] Absolute lymphocyte countOrd ered By: Jeffy Willoughby on 04-18-2025 Lymphocytes Auto (Unsp spec) [#/Vol] 0.83 10*3/uL 0.83-4.51 [facility] Absolute neutrophil countOrd ered By: Jeffy Willoughby on 04-18-2025 Neutrophils (Bld) [#/Vol] 7.0 10*3/uL 2.0-7.7 [facility] Anion gap in Serum or Plasma Ordered By: Jeffyaura Willoughby on 04-18-2025 Anion gap [Moles/Vol] 15 mmol/L 5-15 [facility] Automated lymphocyte count a s percentage of total leukocytesOrdered By: Jeffy Willoughby on 04-18-2025 Lymphocytes/100 WBC Auto (Unsp spec) 9.5 % Low 19-41 [facility] BRCon 04-18-2025 RC Normal [facility] Comment on above: Result Comment: [id number] OP RC TRANSFUSED 04/19/25 [id number] OP RC TRANSFUSED 04/19/25 0801 Performed By: #### B RC ####[facility] [address] [place], [address] BUN/creatinine ratioOrdered By: Jeffy Willoughby on 04-18-2025 Urea nitrogen/Creatinine [Mass ratio] 18.9 mg/mg 10-20 [facility] Basophil percentageOrdered B y: Jeffy Willoughby on 04-18-2025 Basophils/100 WBC (Bld) 0.6 % 0-1 [facility] Bedside Glucoseon 04-18-2025 FINGERSTICK GLU 121 mg/dL High 74-106 [facility] Comment on above: Result Comment: YONY HARTMANN OF PATIENT CARE PER NURSING PROTOCOL Performed By: #### L 501.080 ####[facility] [address] [place], [address] Bilirubin, totalOrdered By: Jeffy Willoughby on 04-18-2025 Bilirubin [Mass/Vol] 0.35 mg/dL 0.00-1.30 [facility] CBC W/Diff, Automatedon 03-21 Absolute Lymph 0.83 X10 3/uL Normal 0.83-4.51 [facility] Comment on above: Performed By: #### L 501.2450, L500.4050, L503.6005, L100.0100, BTS ####[facility] [address] [place], [address] Absolute Neut 7.0 X10 3/uL Normal 2.0-7.7 [facility] Comment on above: Performed By: #### L 501.2450, L500.4050, L503.6005, L100.0100, BTS ####[facility] [address] [place], [address] Basophils/100 WBC (Bld) 0.6 % Normal 0-1 [facility] Comment on above: Performed By: #### L 501.2450, L500.4050, L503.6005, L100.0100, BTS ####[facility] [address] [place], [address] Eosinophils/100 WBC (Bld) 0.5 % Normal 0-5 [facility] Comment on above: Performed By: #### L 501.2450, L500.4050, L503.6005, L100.0100, BTS ####[facility] [address] [place], [address] Erythrocyte distribution width (RBC) [Ratio] 17.3 % High 11.6-14.6 [facility] Comment on above: Performed By: #### L 501.2450, L500.4050, L503.6005, L100.0100, BTS ####[facility] [address] [place], [address] Hematocrit (Bld) [Volume fraction] 23.5 % Low 37-47 [facility] Comment on above: Performed By: #### L 501.2450, L500.4050, L503.6005, L100.0100, BTS ####[facility] [address] [place], [address] Hemoglobin (Bld) [Mass/Vol] 7.3 g/dL Low 12.0-15.0 [facility] Comment on above: Performed By: #### L 501.2450, L500.4050, L503.6005, L100.0100, BTS ####[facility] [address] [place], [address] IG% 0.500 Normal 0.0-0.9 [facility] Comment on above: Result Comment: IG% - Immature Granulocytes (promyelocytes, myelocytes andmetamyelocytes) > 1% indicates that a LEFT SHIFT is Present. Performed By: #### L 501.2450, L500.4050, L503.6005, L100.0100, BTS ####[facility] [address] [place], [address] Lymphocytes/100 WBC (Bld) 9.5 % Low 19-41 [facility] Comment on above: Performed By: #### L 501.2450, L500.4050, L503.6005, L100.0100, BTS ####[facility] [address] [place], [address] MCH (RBC) [Entitic mass] 24.6 pg Low 27.0-32.0 [facility] Comment on above: Performed By: #### L 501.2450, L500.4050, L503.6005, L100.0100, BTS ####[facility] [address] [place], [address] MCHC (RBC) [Mass/Vol] 31.1 g/dL Low 32-36 [facility] Comment on above: Performed By: #### L 501.2450, L500.4050, L503.6005, L100.0100, BTS ####[facility] [address] [place], [address] MCV (RBC) [Entitic vol] 79.1 fL Low 81-99 [facility] Comment on above: Performed By: #### L 501.2450, L500.4050, L503.6005, L100.0100, BTS ####[facility] [address] [place], [address] Monocytes/100 WBC (Bld) 9.4 % Normal 0-10 [facility] Comment on above: Performed By: #### L 501.2450, L500.4050, L503.6005, L100.0100, BTS ####[facility] [address] [place], [address] Neutrophils/100 WBC (Bld) 79.5 % High 47-70 [facility] Comment on above: Performed By: #### L 501.2450, L500.4050, L503.6005, L100.0100, BTS ####[facility] [address] [place], [address] Nucleated RBC (Bld) [#/Vol] 0.2 10*3/uL Normal 0-5 [facility] Comment on above: Performed By: #### L 501.2450, L500.4050, L503.6005, L100.0100, BTS ####[facility] [address] [place], [address] Platelet mean volume (Bld) [Entitic vol] 9.6 fL Normal 6.2-12.0 [facility] Comment on above: Performed By: #### L 501.2450, L500.4050, L503.6005, L100.0100, BTS ####[facility] [address] [place], [address] Platelets (Bld) [#/Vol] 195 10*3/uL Normal 150-450 [facility] Comment on above: Performed By: #### L 501.2450, L500.4050, L503.6005, L100.0100, BTS ####[facility] [address] [place], [address] RBC (Bld) [#/Vol] 2.97 10*6/uL Low 4.2-5.4 [facility] Comment on above: Performed By: #### L 501.2450, L500.4050, L503.6005, L100.0100, BTS ####[facility] [address] [place], [address] RDW SD 50.4 fl High 35.1-43.9 [facility] Comment on above: Performed By: #### L 501.2450, L500.4050, L503.6005, L100.0100, BTS ####[facility] [address] [place], [address] WBC (Bld) [#/Vol] 8.7 10*3/uL Normal 4.4-11.0 [facility] Comment on above: Performed By: #### L 501.2450, L500.4050, L503.6005, L100.0100, BTS ####[facility] [address] [place], [address] Carbon dioxide, total [Moles /volume] in Central venous bloodOrdered By: Jeffy Willoughby on 04-18-2025 CO2 [Moles/Vol] 21.0 mmol/L 21.0-32.0 [facility] Chloride assayOrdered By: Barrett Willoughby on 04-18-2025 Chloride [Moles/Vol] 97 mmol/L Low 98-108 [facility] Comprehensive Metabolic Prof ilon 04-18-2025 Albumin [Mass/Vol] 4.1 g/dL Normal 3.4-4.8 [facility] Comment on above: Performed By: #### L 501.2450, L500.4050, L503.6005, L100.0100, BTS ####[facility] [address] [place], [address] Albumin/Globulin [Mass ratio] 1.7 {ratio} Normal 0.9-2.4 [facility] Comment on above: Performed By: #### L 501.2450, L500.4050, L503.6005, L100.0100, BTS ####[facility] [address] [place], [address] ALK PHOS 88 U/L Normal 35-104 [facility] Comment on above: Performed By: #### L 501.2450, L500.4050, L503.6005, L100.0100, BTS ####[facility] [address] [place], [address] ALT [Catalytic activity/Vol] 8 U/L Normal <=34 [facility] Comment on above: Performed By: #### L 501.2450, L500.4050, L503.6005, L100.0100, BTS ####[facility] [address] [place], [address] AST [Catalytic activity/Vol] 16 U/L Normal <=31 [facility] Comment on above: Performed By: #### L 501.2450, L500.4050, L503.6005, L100.0100, BTS ####[facility] [address] [place], [address] Bilirubin [Mass/Vol] 0.35 mg/dL Normal 0.00-1.30 [facility] Comment on above: Performed By: #### L 501.2450, L500.4050, L503.6005, L100.0100, BTS ####[facility] [address] [place], [address] BUN/CRE 18.9 RATIO Normal 10-20 [facility] Comment on above: Performed By: #### L 501.2450, L500.4050, L503.6005, L100.0100, BTS ####[facility] [address] [place], [address] Calcium [Mass/Vol] 9.0 mg/dL Normal 7.6-11.0 [facility] Comment on above: Performed By: #### L 501.2450, L500.4050, L503.6005, L100.0100, BTS ####[facility] [address] [place], [address] Chloride [Moles/Vol] 97 mmol/L Low 98-108 [facility] Comment on above: Performed By: #### L 501.2450, L500.4050, L503.6005, L100.0100, BTS ####[facility] [address] [place], [address] CO2 [Moles/Vol] 21.0 mmol/L Normal 21.0-32.0 [facility] Comment on above: Performed By: #### L 501.2450, L500.4050, L503.6005, L100.0100, BTS ####[facility] [address] [place], [address] Creatinine [Mass/Vol] 1.28 mg/dL High 0.70-1.20 [facility] Comment on above: Performed By: #### L 501.2450, L500.4050, L503.6005, L100.0100, BTS ####[facility] [address] [place], [address] ECRCL 29.72 ml/min Low 50-250 [facility] Comment on above: Performed By: #### L 501.2450, L500.4050, L503.6005, L100.0100, BTS ####[facility] [address] [place], [address] GAP 15 Normal 5-15 [facility] Comment on above: Performed By: #### L 501.2450, L500.4050, L503.6005, L100.0100, BTS ####[facility] [address] [place], [address] GFR/1.73 sq M.predicted among non-blacks MDRD (S/P/Bld) [Vol rate/Area] 45 mL/min/{1.73_m2} Low >60 [facility] Comment on above: Result Comment: mL/m in/1.73m2 CKD-EPI Creatinine Equation (2020) Performed By: #### L 501.2450, L500.4050, L503.6005, L100.0100, BTS ####[facility] [address] [place], [address] Globulin (S) [Mass/Vol] 2.4 g/dL Normal 2.2-4.2 [facility] Comment on above: Performed By: #### L 501.2450, L500.4050, L503.6005, L100.0100, BTS ####[facility] [address] [place], [address] Glucose [Mass/Vol] 135 mg/dL High 70-99 [facility] Comment on above: Performed By: #### L 501.2450, L500.4050, L503.6005, L100.0100, BTS ####[facility] [address] [place], [address] Potassium [Moles/Vol] 3.8 mmol/L Normal 3.3-5.1 [facility] Comment on above: Performed By: #### L 501.2450, L500.4050, L503.6005, L100.0100, BTS ####[facility] [address] [place], [address] Sodium [Moles/Vol] 133 mmol/L Normal 133-145 [facility] Comment on above: Performed By: #### L 501.2450, L500.4050, L503.6005, L100.0100, BTS ####[facility] [address] [place], [address] T PROT 6.4 g/dL Normal 5.9-8.4 [facility] Comment on above: Performed By: #### L 501.2450, L500.4050, L503.6005, L100.0100, BTS ####[facility] [address] [place], [address] Urea nitrogen [Mass/Vol] 24 mg/dL High 4-19 [facility] Comment on above: Performed By: #### L 501.2450, L500.4050, L503.6005, L100.0100, BTS ####[facility] [address] [place], [place], [address] Emergency Department Summary on 04-18-2025 Emergency Department Summary Normal [facility] Eosinophil percentageOrdered By: Jeffyaura Willoughby on 04-18-2025 Eosinophils/100 WBC (Bld) 0.5 % 0-5 [facility] Erythrocyte distribution wid th ratioOrdered By: Jeffyaura Willoughby on 04-18-2025 Erythrocyte distribution width (RBC) [Ratio] 17.3 % High 11.6-14.6 [facility] Erythrocyte distribution wid th standard deviationOrdered By: Jeffyaura Willoughby on 04-18-2025 Erythrocyte distribution width (RBC) [Ratio] 50.4 fl High 35.1-43.9 [facility] Ferritinon 04-18-2025 Ferritin [Mass/Vol] 12 ng/mL Low 22-378 [facility] Comment on above: Performed By: #### L 503.6550, L503.6065 ####[facility] [address] [place], [place], [address] Glomerular filtration rate ( GFR) estimation/1.73 sq m using serum, plasma, or whole bOrdered By: Jeffy Willoughby on 04-18-2025 GFR/1.73 sq M.predicted among non-blacks MDRD (S/P/Bld) [Vol rate/Area] 45 mL/min/{1.73_m2} Low >60 [facility] Comment on above: mL/min/1.73m2 CKD-EP I Creatinine Equation (2020) Glucose measurement at bedsi deOrdered By: Jeffy Willoughby on 04-18-2025 Glucose [Mass/Vol] 121 mg/dL High 74-106 [facility] Comment on above: MANAGEMENT OF PATIEN T CARE PER NURSING PROTOCOL H AND P Exam - Hospitaliston 04-18-2025 H&P Exam - Hospitalist Normal [facility] Hematocrit Auto (Bld) [Volum e fraction]Ordered By: Jeffy Willoughby on 04-18-2025 Hematocrit (Bld) [Volume fraction] 23.5 % Low 37-47 [facility] Hemoglobin measurementOrdere d By: Jeffy Willoughby on 04-18-2025 Hemoglobin (Bld) [Mass/Vol] 7.3 g/dL Low 12.0-15.0 [facility] Immature granulocytes/100 WB C Auto (Bld)Ordered By: Jeffyaura Blocko on 04-18-2025 Immature granulocytes/100 WBC (Bld) 0.500 % 0.0-0.9 [facility] Comment on above: IG% - Immature Granu locytes (promyelocytes, myelocytes and metamyelocytes) > 1% indicates that a LEFT SHIFT is Present. Iron measurement (mass/mass) Ordered By: Sachin Murillo on 04-18-2025 Iron (Unsp spec) [Mass/Mass] 16 ug/dL Low 50-170 [facility] Iron+Iron Binding Capacityon 04-18-2025 Iron [Mass/Vol] 16 ug/dL Low 50-170 [facility] Comment on above: Performed By: #### L 503.6550, L503.6030 ####[facility] [address] [place], [address] IRON SATURATION 4.0 Low 13-59 [facility] Comment on above: Performed By: #### L 503.6550, L503.6030 ####[facility] [address] [place], [address] TIBC 372 ug/dL Normal 250-450 [facility] Comment on above: Performed By: #### L 503.6550, L503.6030 ####[facility] [address] [place], [address] UIBC 356 ug/dL Normal 228-428 [facility] Comment on above: Performed By: #### L 503.6550, L503.6030 ####[facility] [address] [place], [address] L499.0042on 04-18-2025 Trop T High Sen 24 ng/L High <=14 [facility] Comment on above: Performed By: #### L 499.0042 ####[facility] [address] [place], [place], [address] L501.4021on 04-18-2025 Trop T High Sen 30 ng/L High <=14 [facility] Comment on above: Performed By: #### L 501.4021 ####[facility] [address] [place], [place], [address] Laboratory - Chemistry and C hemistry - challengeOrdered By: Jeffy Case on 04-18-2025 AST [Catalytic activity/Vol] 16 U/L <32 [facility] Lactic Acidon 04-18-2025 Lactate [Moles/Vol] 2.6 mmol/L Invalid Interpretation Code 0.0-2.0 [facility] Comment on above: Order Comment: Y Result Comment: Crit ical Result(s) Called LSPARR at: 1945 by:DIOGO??Results read back by same. Performed By: #### L 501.2450, L500.4050, L503.6005, L100.0100, BTS ####[facility] [address] [place], [place], [address] Lactic acid measurementOrder ed By: Jeffy Willoughby on 04-18-2025 Lactate [Moles/Vol] 2.6 mmol/L High 0.0-2.0 [facility] Comment on above: Critical Result(s) C alled LSPARR at: 1945 by: DIOGO Results read back by same. Lipaseon 04-18-2025 Lipase [Catalytic activity/Vol] 15 U/L Normal 13-75 [facility] Comment on above: Result Comment: Stacy pringle note:LIPASE revised reference range effective 23.New Lipase methodology. Expected to produce lower valuesthan the previous assay method.NEW Reference Range: 13 - 75 U/L Performed By: #### L 501.2450, L500.4050, L503.6005, L100.0100, BTS ####[facility] [address] [place], [address] Lipase measurementOrdered By : Jeffy Willoughby on 04-18-2025 Lipase [Catalytic activity/Vol] 15 U/L 13-75 [facility] Comment on above: Please note:LIPASE r evised reference range effective 23. New Lipase methodology. Expected to produce lower values than the previous assay method. NEW Reference Range: 13 - 75 U/L MCV (mean corpuscular volume ) determinationOrdered By: Jeffy Willoughby on 04-18-2025 MCV (RBC) [Entitic vol] 79.1 fL Low 81-99 [facility] Mean corpuscular hemoglobin (MCH) determinationOrdered By: Jeffy Blocko on 04-18-2025 MCH (RBC) [Entitic mass] 24.6 pg Low 27.0-32.0 [facility] Mean corpuscular hemoglobin concentration (MCHC) determinationOrdered By: Jeffy Willoughby on 04-18-2025 MCHC (RBC) [Mass/Vol] 31.1 g/dL Low 32-36 [facility] Mean platelet volume determi nationOrdered By: Jeffy Willoughby on 04-18-2025 Platelet mean volume (Bld) [Entitic vol] 9.6 fL 6.2-12.0 [facility] Monocyte percentageOrdered B y: Jeffy Willoughby on 04-18-2025 Monocytes/100 WBC (Bld) 9.4 % 0-10 [facility] Neutrophil percentageOrdered By: Jeffy Willoughby on 04-18-2025 Neutrophils/100 WBC (Bld) 79.5 % High 47-70 [facility] No Panel InformationOrdered By: Sachin Murillo on 04-18-2025 356 ug/dL 228-428 [facility] No Panel InformationOrdered By: Jeffy Willoughby on 04-18-2025 16 U/L <32 [facility] [facility] Nucleated red blood cell per centageOrdered By: Jeffy Willoughby on 04-18-2025 Nucleated RBC/100 WBC (Bld) [Ratio] 0.2 % 0-5 [facility] Platelet countOrdered By: Barrett Willoughby on 04-18-2025 Platelets (Bld) [#/Vol] 195 10*3/uL 150-450 [facility] Potassium measurement (mass/ volume)Ordered By: Jeffy Willoughby on 04-18-2025 Potassium (Unsp spec) [Mass/Vol] 3.8 mmol/L 3.3-5.1 [facility] RBC Auto (Bld) [#/Vol]Ordere d By: Jeffy Willoughby on 04-18-2025 RBC (Bld) [#/Vol] 2.97 10*6/uL Low 4.2-5.4 [facility] Serum creatinine measurement (mass/volume)Ordered By: Jeffy Willoughby on 04-18-2025 Creatinine [Mass/Vol] 1.28 mg/dL High 0.70-1.20 [facility] Serum globulin measurementOr dered By: Jeffy Willoughby on 04-18-2025 Globulin (S) [Mass/Vol] 2.4 g/dL 2.2-4.2 [facility] Serum glucose measurement (m ass/volume)Ordered By: Jeffy Willoughby on 04-18-2025 Glucose [Mass/Vol] 135 mg/dL High 70-99 [facility] Serum or plasma alanine pizarro otransferase (ALT) measurementOrdered By: Jeffy Willoughby on 04-18-2025 ALT [Catalytic activity/Vol] 8 U/L <35 [facility] Serum or plasma albumin stefania urement (mass/volume)Ordered By: Jeffy Willoughby 04-18-2025 Albumin [Mass/Vol] 4.1 g/dL 3.4-4.8 [facility] Serum or plasma albumin/glob ulin mass ratioOrdered By: Jeffyaura Willoughby on 04-18-2025 Albumin/Globulin [Mass ratio] 1.7 {ratio} 0.9-2.4 [facility] Serum or plasma alkaline anthony sphatase measurementOrdered By: Jeffyaura Willoughby on 04-18-2025 ALP [Catalytic activity/Vol] 88 U/L 35-104 [facility] Serum or plasma calcium stefania urement (mass/volume)Ordered By: Jeffy Willoughby on 04-18-2025 Calcium [Mass/Vol] 9.0 mg/dL 7.6-11.0 [facility] Serum or plasma ferritin felicia surement (mass/volume)Ordered By: Sachin Murillo on 04-18-2025 Ferritin [Mass/Vol] 12 ng/mL Low 22-378 [facility] Serum or plasma iron saturat ion measurement (mass fraction)Ordered By: Sachin Murillo on 04-18-2025 Iron saturation [Mass fraction] 4.0 % Low 13-59 [facility] Serum or plasma urea nitroge n measurement (mass/volume)Ordered By: Jeffy Willoughby on 04-18-2025 Urea nitrogen [Mass/Vol] 24 mg/dL High 4-19 [facility] Sodium levelOrdered By: Jeffy Willoughby on 04-18-2025 Sodium [Moles/Vol] 133 mmol/L 133-145 [facility] Total proteinOrdered By: Jeffy Willoughby on 04-18-2025 Protein [Mass/Vol] 6.4 g/dL 5.9-8.4 [facility] Troponin T.cardiac [Mass/vol ume] in Serum or Plasma by High sensitivity methodOrdered By: Jeffy Willoughby on 04-18-2025 Troponin T.cardiac High sensitivity method [Mass/Vol] 24 ng/L High <14 [facility] Troponin T.cardiac High sensitivity method [Mass/Vol] 24 ng/L High <14 [facility] Troponin T.cardiac High sensitivity method [Mass/Vol] 30 ng/L High <14 [facility] Type AND Screenon 04-18-2025 ABO and Rh group Nom (Bld) Blood group O Rh(D) positive Normal [facility] Comment on above: Order Comment: MAGGI Suárez PREVIOUS SPECIMEN REJECTED DUE TOWRONG DATE OF ON SPECIMEN. 04/18/25 Performed By: #### B TS ####[facility] [address] [place], [place], [id number] A1 CELL Not performed Normal [facility] Comment on above: Order Comment: A Result Comment: This specimen has been REJECTED due to Laboratory criteria:MisLabelled-INCORRECT DATE OF OF PATIENT ON FENWALBAND SPECIMEN.ED has been notified of need of recollection.05/31/25 1901 Performed By: #### L 501.2450, L500.4050, L503.6005, L100.0100, BTS ####[facility] [address] [place], [address] Ab SCREEN GEL Not performed Normal [facility] Comment on above: Order Comment: A Result Comment: This specimen has been REJECTED due to Laboratory criteria:MisLabelled-INCORRECT DATE OF OF PATIENT ON FENWALBAND SPECIMEN.ED has been notified of need of recollection.04/18/251900 Performed By: #### L 501.2450, L500.4050, L503.6005, L100.0100, BTS ####[facility] [address] [place], [address] ABO and Rh group Nom (Bld) Test Not Performed Normal [facility] Comment on above: Order Comment: A Result Comment: This specimen has been REJECTED due to Laboratory criteria:MisLabelled-INCORRECT DATE OF OF PATIENT ON FENWALBAND SPECIMEN.ED has been notified of need of recollection.04/18/251900 Performed By: #### L 501.2450, L500.4050, L503.6005, L100.0100, BTS ####[facility] [address] [place], [address] ANTI A Not performed Normal [facility] Comment on above: Order Comment: A Result Comment: This specimen has been REJECTED due to Laboratory criteria:MisLabelled-INCORRECT DATE OF OF PATIENT ON FENWALBAND SPECIMEN.ED has been notified of need of recollection.04/18/251900 Performed By: #### L 501.2450, L500.4050, L503.6005, L100.0100, BTS ####[facility] [address] [place], [address] ANTI B Not performed Normal [facility] Comment on above: Order Comment: A Result Comment: This specimen has been REJECTED due to Laboratory criteria:MisLabelled-INCORRECT DATE OF OF PATIENT ON FENWALBAND SPECIMEN.ED has been notified of need of recollection.04/18/251900 Performed By: #### L 501.2450, L500.4050, L503.6005, L100.0100, BTS ####[facility] [address] [place], [address] ANTI D Not performed Normal [facility] Comment on above: Order Comment: A Result Comment: This specimen has been REJECTED due to Laboratory criteria:MisLabelled-INCORRECT DATE OF OF PATIENT ON FENWALBAND SPECIMEN.ED has been notified of need of recollection.04/18/251900 Performed By: #### L 501.2450, L500.4050, L503.6005, L100.0100, BTS ####[facility] [address] [place], [address] B CELLS Not performed Normal [facility] Comment on above: Order Comment: A Result Comment: This specimen has been REJECTED due to Laboratory criteria:MisLabelled-INCORRECT DATE OF OF PATIENT ON FENWALBAND SPECIMEN.ED has been notified of need of recollection.04/18/251900 Performed By: #### L 501.2450, L500.4050, L503.6005, L100.0100, BTS ####[facility] [address] [place], [address] White blood cell (WBC) count Ordered By: Jeffy Willoughby on 04-18-2025 WBC (Bld) [#/Vol] 8.7 10*3/uL 4.4-11.0 [facility] Acute Abdomen Inc Cheston Acute Abdomen Inc Chest Normal [facility] Emergency Department Summary on 04-17-2025 Emergency Department Summary Normal [facility] Brain/Head without Contrasto n 04-11-2025 Brain/Head without Contrast Normal [facility] Emergency Department Summary on 04-11-2025 Emergency Department Summary Normal [facility] Sinus/Facial Boneon 04-11-20 Sinus/Facial Bone Normal [facility] Spine Cervical without Contr ason 04-11-2025 Spine Cervical without Contras Normal [facility] 37on 04-08-2025 37 Please call [place] [phone] to schedule the MRI brain before 05/03/25 - this is when the authorization for the MRI expires Normal [facility] Office Visiton 04-08-2025 Follow-up visit [id number] Estephania Yo Mayda 1955 F Date Provider Department Center 04/08/2025 [id number] [facility] None Family History Family Status - Relation Status Age at Mother Notes: brain tumor Father Notes: [place] of arteries Level of Service:79531 [place] OFFICE/OUTPATIENT ESTABLISHED LOW MDM 20 MIN Reason for Visit and Comments: Follow-up [638929] Multiple Sclerosis [162] - Normal [facility] Progress Noteon 04-08-2025 Progress Note Visit type: Establis hed Patient Reason for Visit: Follow-up and Multiple Sclerosis (/) Assessment and Plan 1. Multiple sclerosis (HCC) 2. Dysphasia Subjective HPI: Patient phoned in 3 days ago stating MS flare - affecting speech, swallowing, and VOSS. Went to [facility] about 1 week ago; according to [...] typical MS symptoms Received CT scan at [facility] that she states was normal REVIEW- MS- [...] Cuff Size: Adult) Pulse 66 Ht 5' 6" (1.676 m) Wt 108 lb 9.6 oz [...] 04/04/2023 [APTT} FLP: No results found for: "CHLPL", "TRIG", "HDL", "LDLCALC", LDLDIRECT TSH: No results found for: "TSH" VITAMIN B12: No results found for: "[id number]" No results found for: "PHENYTOIN", "PHENOBARB", "VALPROATE", "CBMZ" No components found for: TOPIRA @[facility]@ No results found for: "LEVETIRACETA", "FERRITIN", "CRP", "DENNIS", ANCA No results found for: "CHRISTIANO", "IMMUNOGLOBUL", OLIGOBANDS No results found for: "AKQ79UT", "HEPCAB" No results found for: "CRP", "ANATITER", "ANCA" FERRITIN: No results found for: "FERRITIN" ---- ECG 12 lead SINUS BRADYCARDIA PROBABLE LEFT ATRIAL ABNORMALITY No previous ECG available for comparison Electronically Signed On 04-05-2023 7:42:10 EDT by Juvenal Benton @[facility]@ IMPRESSION and PLAN: Problem List Items Ad (more content not included)... Normal [facility] 36on 04-06-2025 36 Patient has been scheduled [facility] 36 I have a 200pm openi ng today or see what I or Dr. Main has open this week. Thank you. Normal [facility] 36on 04-05-2025 36 S: patient [...] be seen in office. May go to [place] [facility] today. Patient advised to call back with worsening of symptoms, concern or questions. Patient verbalized understanding. Reason for Disposition [1] Loss of speech or garbled speech AND [2] is a chronic symptom (recurrent or ongoing AND present > 4 weeks) Protocols used: Neurologic Fzzemph-ZWCKD-NY Normal [facility] 12 Lead EKGon 04-02-2025 12 Lead EKG Normal [facility] Abdomen/Pelvis W IV Cont ONL Yon 04-02-2025 Abdomen/Pelvis W IV Cont ONLY Normal [facility] Absolute lymphocyte countOrd ered By: Nuno Grider on 04-02-2025 Lymphocytes Auto (Unsp spec) [#/Vol] 0.62 10*3/uL Low 0.83-4.51 [facility] Absolute neutrophil countOrd ered By: Nuno Grider on 04-02-2025 Neutrophils (Bld) [#/Vol] 4.7 10*3/uL 2.0-7.7 [facility] Anion gap in Serum or Plasma Ordered By: Nuno Grider on 04-02-2025 Anion gap [Moles/Vol] 13 mmol/L -15 [facility] Automated lymphocyte count a s percentage of total leukocytesOrdered By: Nuno Grider on 04-02-2025 Lymphocytes/100 WBC Auto (Unsp spec) 10.5 % Low 19-41 [facility] BUN/creatinine ratioOrdered By: Nuno Grider on 04-02-2025 Urea nitrogen/Creatinine [Mass ratio] 22.3 mg/mg High 10-20 [facility] Basophil percentageOrdered B y: Nuno Grider on 04-02-2025 Basophils/100 WBC (Bld) 0.5 % 0-1 [facility] Bilirubin, totalOrdered By: Nuno Grider on 04-02-2025 Bilirubin [Mass/Vol] 0.22 mg/dL 0.00-1.30 [facility] CBC W/Diff, Automatedon 03-19-2024 Absolute Lymph 0.62 X10 3/uL Low 0.83-4.51 [facility] Comment on above: Performed By: #### L 501.2450, L100.0100, L500.4050 ####[facility] [address] [place], [address] Absolute Neut 4.7 X10 3/uL Normal 2.0-7.7 [facility] Comment on above: Performed By: #### L 501.2450, L100.0100, L500.4050 ####[facility] [address] [place], [address] Basophils/100 WBC (Bld) 0.5 % Normal 0-1 [facility] Comment on above: Performed By: #### L 501.2450, L100.0100, L500.4050 ####[facility] [address] [place], [address] Eosinophils/100 WBC (Bld) 1.5 % Normal 0-5 [facility] Comment on above: Performed By: #### L 501.2450, L100.0100, L500.4050 ####[facility] [address] [place], [address] Erythrocyte distribution width (RBC) [Ratio] 16.5 % High 11.6-14.6 [facility] Comment on above: Performed By: #### L 501.2450, L100.0100, L500.4050 ####[facility] [address] [place], [address] Hematocrit (Bld) [Volume fraction] 28.2 % Low 37-47 [facility] Comment on above: Performed By: #### L 501.2450, L100.0100, L500.4050 ####[facility] [address] [place], [address] Hemoglobin (Bld) [Mass/Vol] 8.8 g/dL Low 12.0-15.0 [facility] Comment on above: Performed By: #### L 501.2450, L100.0100, L500.4050 ####[facility] [address] [place], [address] IG% 0.500 Normal 0.0-0.9 [facility] Comment on above: Result Comment: IG% - Immature Granulocytes (promyelocytes, myelocytes andmetamyelocytes) > 1% indicates that a LEFT SHIFT is Present. Performed By: #### L 501.2450, L100.0100, L500.4050 ####[facility] [address] [place], [address] Lymphocytes/100 WBC (Bld) 10.5 % Low 19-41 [facility] Comment on above: Performed By: #### L 501.2450, L100.0100, L500.4050 ####[facility] [address] [place], [address] MCH (RBC) [Entitic mass] 25.8 pg Low 27.0-32.0 [facility] Comment on above: Performed By: #### L 501.2450, L100.0100, L500.4050 ####[facility] [address] [place], [address] MCHC (RBC) [Mass/Vol] 31.2 g/dL Low 32-36 [facility] Comment on above: Performed By: #### L 501.2450, L100.0100, L500.4050 ####[facility] [address] [place], [address] MCV (RBC) [Entitic vol] 82.7 fL Normal 81-99 [facility] Comment on above: Performed By: #### L 501.2450, L100.0100, L500.4050 ####[facility] [address] [place], [address] Monocytes/100 WBC (Bld) 6.6 % Normal 0-10 [facility] Comment on above: Performed By: #### L 501.2450, L100.0100, L500.4050 ####[facility] [address] [place], [address] Neutrophils/100 WBC (Bld) 80.4 % High 47-70 [facility] Comment on above: Performed By: #### L 501.2450, L100.0100, L500.4050 ####[facility] [address] [place], [address] Nucleated RBC (Bld) [#/Vol] 0 10*3/uL Normal 0-5 [facility] Comment on above: Performed By: #### L 501.2450, L100.0100, L500.4050 ####[facility] [address] [place], [address] Platelet mean volume (Bld) [Entitic vol] 9.7 fL Normal 6.2-12.0 [facility] Comment on above: Performed By: #### L 501.2450, L100.0100, L500.4050 ####[facility] [address] [place], [address] Platelets (Bld) [#/Vol] 154 10*3/uL Normal 150-450 [facility] Comment on above: Performed By: #### L 501.2450, L100.0100, L500.4050 ####[facility] [address] [place], [address] RBC (Bld) [#/Vol] 3.41 10*6/uL Low 4.2-5.4 [facility] Comment on above: Performed By: #### L 501.2450, L100.0100, L500.4050 ####[facility] [address] [place], [address] RDW SD 49.7 fl High 35.1-43.9 [facility] Comment on above: Performed By: #### L 501.2450, L100.0100, L500.4050 ####[facility] [address] [place], [address] WBC (Bld) [#/Vol] 5.9 10*3/uL Normal 4.4-11.0 [facility] Comment on above: Performed By: #### L 501.2450, L100.0100, L500.4050 ####[facility] [address] [place], [address] Carbon dioxide, total [Moles /volume] in Central venous bloodOrdered By: Nuno Grider on 04-02-2025 CO2 [Moles/Vol] 23.7 mmol/L 21.0-32.0 [facility] Chloride assayOrdered By: Jorge Grider on 04-02-2025 Chloride [Moles/Vol] 102 mmol/L 98-108 [facility] Comprehensive Metabolic Prof ilon 04-02-2025 Albumin [Mass/Vol] 4.2 g/dL Normal 3.4-4.8 [facility] Comment on above: Performed By: #### L 501.2450, L100.0100, L500.4050 ####[facility] [address] [place], [address] Albumin/Globulin [Mass ratio] 1.7 {ratio} Normal 0.9-2.4 [facility] Comment on above: Performed By: #### L 501.2450, L100.0100, L500.4050 ####[facility] [address] [place], [address] ALK PHOS 87 U/L Normal 35-104 [facility] Comment on above: Performed By: #### L 501.2450, L100.0100, L500.4050 ####[facility] [address] [place], [address] ALT [Catalytic activity/Vol] 14 U/L Normal <=34 [facility] Comment on above: Performed By: #### L 501.2450, L100.0100, L500.4050 ####[facility] [address] [place], [address] AST [Catalytic activity/Vol] 16 U/L Normal <=31 [facility] Comment on above: Performed By: #### L 501.2450, L100.0100, L500.4050 ####[facility] [address] [place], [address] Bilirubin [Mass/Vol] 0.22 mg/dL Normal 0.00-1.30 [facility] Comment on above: Performed By: #### L 501.2450, L100.0100, L500.4050 ####[facility] [address] [place], [address] BUN/CRE 22.3 RATIO High 10-20 [facility] Comment on above: Performed By: #### L 501.2450, L100.0100, L500.4050 ####[facility] [address] [place], [address] Calcium [Mass/Vol] 9.6 mg/dL Normal 7.6-11.0 [facility] Comment on above: Performed By: #### L 501.2450, L100.0100, L500.4050 ####[facility] [address] [place], [address] Chloride [Moles/Vol] 102 mmol/L Normal 98-108 [facility] Comment on above: Performed By: #### L 501.2450, L100.0100, L500.4050 ####[facility] [address] [place], [address] CO2 [Moles/Vol] 23.7 mmol/L Normal 21.0-32.0 [facility] Comment on above: Performed By: #### L 501.2450, L100.0100, L500.4050 ####[facility] [address] [place], [address] Creatinine [Mass/Vol] 1.23 mg/dL High 0.70-1.20 [facility] Comment on above: Performed By: #### L 501.2450, L100.0100, L500.4050 ####[facility] [address] [place], [address] ECRCL 34.53 ml/min Low 50-250 [facility] Comment on above: Performed By: #### L 501.2450, L100.0100, L500.4050 ####[facility] [address] [place], [address] GAP 13 Normal 5-15 [facility] Comment on above: Performed By: #### L 501.2450, L100.0100, L500.4050 ####[facility] [address] [place], [address] GFR/1.73 sq M.predicted among non-blacks MDRD (S/P/Bld) [Vol rate/Area] 47 mL/min/{1.73_m2} Low >60 [facility] Comment on above: Result Comment: mL/m in/1.73m2 CKD-EPI Creatinine Equation (2020) Performed By: #### L 501.2450, L100.0100, L500.4050 ####[facility] [address] [place], [address] Globulin (S) [Mass/Vol] 2.5 g/dL Normal 2.2-4.2 [facility] Comment on above: Performed By: #### L 501.2450, L100.0100, L500.4050 ####[facility] [address] [place], [address] Glucose [Mass/Vol] 129 mg/dL High 70-99 [facility] Comment on above: Performed By: #### L 501.2450, L100.0100, L500.4050 ####[facility] [address] [place], [address] Potassium [Moles/Vol] 4.0 mmol/L Normal 3.3-5.1 [facility] Comment on above: Performed By: #### L 501.2450, L100.0100, L500.4050 ####[facility] [address] [place], [address] Sodium [Moles/Vol] 138 mmol/L Normal 133-145 [facility] Comment on above: Performed By: #### L 501.2450, L100.0100, L500.4050 ####[facility] [address] [place], [address] T PROT 6.7 g/dL Normal 5.9-8.4 [facility] Comment on above: Performed By: #### L 501.2450, L100.0100, L500.4050 ####[facility] [address] [place], [address] Urea nitrogen [Mass/Vol] 27 mg/dL High 4-19 [facility] Comment on above: Performed By: #### L 501.2450, L100.0100, L500.4050 ####[facility] [address] [place], [address] Emergency Department Summary on 04-02-2025 Emergency Department Summary Normal [facility] Eosinophil percentageOrdered By: Nuno Grider on 04-02-2025 Eosinophils/100 WBC (Bld) 1.5 % 0-5 [facility] Erythrocyte distribution wid th ratioOrdered By: Nuno Grider on 04-02-2025 Erythrocyte distribution width (RBC) [Ratio] 16.5 % High 11.6-14.6 [facility] Erythrocyte distribution wid th standard deviationOrdered By: Nuno Grider on 04-02-2025 Erythrocyte distribution width (RBC) [Ratio] 49.7 fl High 35.1-43.9 [facility] Glomerular filtration rate ( GFR) estimation/1.73 sq m using serum, plasma, or whole bOrdered By: Nuno Grider on 04-02-2025 GFR/1.73 sq M.predicted among non-blacks MDRD (S/P/Bld) [Vol rate/Area] 47 mL/min/{1.73_m2} Low >60 [facility] Comment on above: mL/min/1.73m2 CKD-EP I Creatinine Equation (2020) Hematocrit Auto (Bld) [Volum e fraction]Ordered By: Nuno Grider on 04-02-2025 Hematocrit (Bld) [Volume fraction] 28.2 % Low 37-47 [facility] Hemoglobin measurementOrdere d By: Nuno Grider on 04-02-2025 Hemoglobin (Bld) [Mass/Vol] 8.8 g/dL Low 12.0-15.0 [facility] Immature granulocytes/100 WB C Auto (Bld)Ordered By: Nuno Grider on 04-02-2025 Immature granulocytes/100 WBC (Bld) 0.500 % 0.0-0.9 [facility] Comment on above: IG% - Immature Granu locytes (promyelocytes, myelocytes and metamyelocytes) > 1% indicates that a LEFT SHIFT is Present. Laboratory - Chemistry and C hemistry - challengeOrdered By: Nuno Grider on 04-02-2025 AST [Catalytic activity/Vol] 16 U/L <32 [facility] Lipaseon 04-02-2025 Lipase [Catalytic activity/Vol] 23 U/L Normal 13-75 [facility] Comment on above: Result Comment: Stacy pringle note:LIPASE revised reference range effective 23.New Lipase methodology. Expected to produce lower valuesthan the previous assay method.NEW Reference Range: 13 - 75 U/L Performed By: #### L 501.2450, L100.0100, L500.4050 ####[facility] [address] [place], [place], [address] Lipase measurementOrdered By : Nuno Grider on 04-02-2025 Lipase [Catalytic activity/Vol] 23 U/L 13-75 [facility] Comment on above: Please note:LIPASE r evised reference range effective 23. New Lipase methodology. Expected to produce lower values than the previous assay method. NEW Reference Range: 13 - 75 U/L MCV (mean corpuscular volume ) determinationOrdered By: Nuno Grider on 04-02-2025 MCV (RBC) [Entitic vol] 82.7 fL 81-99 [facility] Mean corpuscular hemoglobin (MCH) determinationOrdered By: Nuno Grider on 04-02-2025 MCH (RBC) [Entitic mass] 25.8 pg Low 27.0-32.0 [facility] Mean corpuscular hemoglobin concentration (MCHC) determinationOrdered By: Nuno Grider on 04-02-2025 MCHC (RBC) [Mass/Vol] 31.2 g/dL Low 32-36 [facility] Mean platelet volume determi nationOrdered By: Nuno Grider on 04-02-2025 Platelet mean volume (Bld) [Entitic vol] 9.7 fL 6.2-12.0 [facility] Monocyte percentageOrdered B y: Nuno Grider on 04-02-2025 Monocytes/100 WBC (Bld) 6.6 % 0-10 [facility] Neutrophil percentageOrdered By: Nuno Grider on 04-02-2025 Neutrophils/100 WBC (Bld) 80.4 % High 47-70 [facility] No Panel InformationOrdered By: Nuno Grider on 04-02-2025 16 U/L <32 [facility] Nucleated red blood cell per centageOrdered By: Nuno Grider on 04-02-2025 Nucleated RBC/100 WBC (Bld) [Ratio] 0 % 0-5 [facility] Platelet countOrdered By: Jorge Grider on 04-02-2025 Platelets (Bld) [#/Vol] 154 10*3/uL 150-450 [facility] Potassium measurement (mass/ volume)Ordered By: Nuno Grider on 04-02-2025 Potassium (Unsp spec) [Mass/Vol] 4.0 mmol/L 3.3-5.1 [facility] RBC Auto (Bld) [#/Vol]Ordere d By: Nuno Grider on 04-02-2025 RBC (Bld) [#/Vol] 3.41 10*6/uL Low 4.2-5.4 [facility] Serum creatinine measurement (mass/volume)Ordered By: Nuno Grider on 04-02-2025 Creatinine [Mass/Vol] 1.23 mg/dL High 0.70-1.20 [facility] Serum globulin measurementOr dered By: Nuno Grider on 04-02-2025 Globulin (S) [Mass/Vol] 2.5 g/dL 2.2-4.2 [facility] Serum glucose measurement (m ass/volume)Ordered By: Nuno Grider on 04-02-2025 Glucose [Mass/Vol] 129 mg/dL High 70-99 [facility] Serum or plasma alanine pizarro otransferase (ALT) measurementOrdered By: Nuno Grider on 04-02-2025 ALT [Catalytic activity/Vol] 14 U/L <35 [facility] Serum or plasma albumin stefania urement (mass/volume)Ordered By: Nuno Grider on 04-02-2025 Albumin [Mass/Vol] 4.2 g/dL 3.4-4.8 [facility] Serum or plasma albumin/glob ulin mass ratioOrdered By: Nuno Grider on 04-02-2025 Albumin/Globulin [Mass ratio] 1.7 {ratio} 0.9-2.4 [facility] Serum or plasma alkaline anthony sphatase measurementOrdered By: Nuno Grider on 04-02-2025 ALP [Catalytic activity/Vol] 87 U/L 35-104 [facility] Serum or plasma calcium stefania urement (mass/volume)Ordered By: Nuno Grider on 04-02-2025 Calcium [Mass/Vol] 9.6 mg/dL 7.6-11.0 [facility] Serum or plasma urea nitroge n measurement (mass/volume)Ordered By: Nuno Grider on 04-02-2025 Urea nitrogen [Mass/Vol] 27 mg/dL High 4-19 [facility] Sodium levelOrdered By: Nuno Grider on 04-02-2025 Sodium [Moles/Vol] 138 mmol/L 133-145 [facility] Total proteinOrdered By: Clari Grider on 04-02-2025 Protein [Mass/Vol] 6.7 g/dL 5.9-8.4 [facility] Urinalysis, Completeon 04-02 BACTERIA Normal None Seen [facility] Comment on above: Order Comment: THEODORE KAMARA TO SPECIFY Result Comment: @PT DEPARTED ER, OK TO CANCEL BY ANTELMOTTLER Performed By: #### L 400.0001 ####[facility] [address] [place], [address] BILIRUBIN URINE Normal Negative [facility] Comment on above: Order Comment: THEODORE KAMARA TO SPECIFY Result Comment: @PT DEPARTED ER, OK TO CANCEL BY CHRISTIANAOSTETTLER Performed By: #### L 400.0001 ####[facility] [address] [place], [address] Clarity (U) Normal Clear [facility] Comment on above: Order Comment: THEODORE KAMARA TO SPECIFY Result Comment: @PT DEPARTED ER, OK TO CANCEL BY OSTETTLER Performed By: #### L 400.0001 ####[facility] [address] [place], [address] Color (U) Normal Yellow [facility] Comment on above: Order Comment: COLLE CTOR TO SPECIFY Result Comment: @PT DEPARTED ER, OK TO CANCEL BY MHOSTETTLER Performed By: #### L 400.0001 ####[facility] [address] [place], [address] EPI,SQUAMOUS Normal 5-10 [facility] Comment on above: Order Comment: THEODORE CTOR TO SPECIFY Result Comment: @PT DEPARTED ER, OK TO CANCEL BY MHOSTETTLER Performed By: #### L 400.0001 ####[facility] [address] [place], [address] GLUCOSE, UR Normal Normal [facility] Comment on above: Order Comment: THEODORE CTOR TO SPECIFY Result Comment: @PT DEPARTED ER, OK TO CANCEL BY MHOSTETTLER Performed By: #### L 400.0001 ####[facility] [address] [place], [address] KETONE UR Normal Negative [facility] Comment on above: Order Comment: THEODORE CTOR TO SPECIFY Result Comment: @PT DEPARTED ER, OK TO CANCEL BY MHOSTETTLER Performed By: #### L 400.0001 ####[facility] [address] [place], [address] LEUK ESTERASE Normal Negative [facility] Comment on above: Order Comment: THEODORE CTOR TO SPECIFY Result Comment: @PT DEPARTED ER, OK TO CANCEL BY MHOSTETTLER Performed By: #### L 400.0001 ####[facility] [address] [place], [address] Mucus Ql (Urine sed) Normal [facility] Comment on above: Order Comment: THEODORE CTOR TO SPECIFY Result Comment: @PT DEPARTED ER, OK TO CANCEL BY MHOSTETTLER Performed By: #### L 400.0001 ####[facility] [address] [place], [address] Nitrite Ql (U) Normal Negative [facility] Comment on above: Order Comment: THEODORE CTOR TO SPECIFY Result Comment: @PT DEPARTED ER, OK TO CANCEL BY MHOSTETTLER Performed By: #### L 400.0001 ####[facility] [address] [place], [address] OCCULT BLOOD-UR Normal Negative [facility] Comment on above: Order Comment: THEODORE CTOR TO SPECIFY Result Comment: @PT DEPARTED ER, OK TO CANCEL BY MHOSTETTLER Performed By: #### L 400.0001 ####[facility] [address] [place], [address] pH UR Normal 5.0 - 8.0 [facility] Comment on above: Order Comment: THEODORE CTOR TO SPECIFY Result Comment: @PT DEPARTED ER, OK TO CANCEL BY MHOSTETTLER Performed By: #### L 400.0001 ####[facility] [address] [place], [address] PROT DIPSTX Normal Negative [facility] Comment on above: Order Comment: THEODORE CTOR TO SPECIFY Result Comment: @PT DEPARTED ER, OK TO CANCEL BY MHOSTETTLER Performed By: #### L 400.0001 ####[facility] [address] [place], [address] RBC Normal 0-5 [facility] Comment on above: Order Comment: THEODORE CTOR TO SPECIFY Result Comment: @PT DEPARTED ER, OK TO CANCEL BY MHOSTETTLER Performed By: #### L 400.0001 ####[facility] [address] [place], [address] SP.GR. DIPSTX Normal 1.002-1.03 0 [facility] Comment on above: Order Comment: THEODORE CTOR TO SPECIFY Result Comment: @PT DEPARTED ER, OK TO CANCEL BY MHOSTETTLER Performed By: #### L 400.0001 ####[facility] [address] [place], [address] UR Preservative Normal [facility] Comment on above: Order Comment: COLLE CTOR TO SPECIFY Result Comment: @PT DEPARTED ER, OK TO CANCEL BY MHOSTETTLER Performed By: #### L 400.0001 ####[facility] [address] [place], [address] UROBILI Normal Normal [facility] Comment on above: Order Comment: COLLE CTOR TO SPECIFY Result Comment: @PT DEPARTED ER, OK TO CANCEL BY MHOSTETTLER Performed By: #### L 400.0001 ####[facility] [address] [place], [address] WBC Normal 0-5 [facility] Comment on above: Order Comment: COLLE CTOR TO SPECIFY Result Comment: @PT DEPARTED ER, OK TO CANCEL BY MHOSTETTLER Performed By: #### L 400.0001 ####[facility] [address] [place], [address] White blood cell (WBC) count Ordered By: Nuno Grider on 04-02-2025 WBC (Bld) [#/Vol] 5.9 10*3/uL 4.4-11.0 [facility] Echo Transesophageal (GREGORIO)on 03-19-2025 Echo Transesophageal (GREGORIO) [facility] 36on 03-09-2025 36 Order re faxed to [phone] [facility]. [facility] 36 Name of caller: Brice aragon Contact phone number: [phone] Relationship to Patient: [facility] Provider: AURORA Lynn Practice: [facility] Chief Complaint/Reason for Call: Kody called in requesting patient's MRI order be faxed over to them at fax # [phone]. Please be advised Best time of day caller can be reached: Any Patient advised that office/PCP has 24-48 business hours to return their call: N/A [facility] 36on 03-04-2025 36 Call to patient. Pat ient notified. Patient Stated will scheduled testing. [facility] 36 We have been unable to reach your patient to schedule their testing. Test Name: EEG 1st Attempt: 03/04 pt stated this will be done at [facility] Office Visiton 03-04-2025 Follow-up visit [id number] Estephania Yo Mayda 1955 F Date Provider Department Center 03/04/2025 [id number] [facility] None Family History Family Status - Relation Status Age at Mother Notes: brain tumor Father Notes: [place] of arteries Level of Service:40334 [place] OFFICE/OUTPATIENT ESTABLISHED LOW MDM 20 MIN Reason for Visit and Comments: Follow-up [398101] Multiple Sclerosis [162] [facility] Progress Noteon 03-04-2025 Progress Note Visit type: [...] daily., Disp: 9 (more content not included)... [address] 03-02-2025 36 Refused as it has be en over a year since her last visit. Will refill at her upcoming appt. [place] [address] Last ov- 12/14/23 Next ov- 03/04/[address] 02-25-2025 36 patient has been not ified of providers message. Appointment has been scheduled [place] [address] Patient's last offic e visit was over a year ago; she needs a follow up before I can order more refills. Thank you. [address] 02-24-2025 36 Forwarding to [facility] er for review and advice. Called pharmacy spoke with medical record technician who stated patient picked up refill on January 18. [place] [address] Medication name: staci lofen (Lioresal) 20 MG [...] to picking up the medication: Yes Normal [facility] Cardiology Visit Reporton Cardiology Visit Report Normal [facility] Thoracic Spine 2 Viewson Thoracic Spine 2 Views Normal [facility] Discharge Instructionon 12-21 Discharge Instruction Normal [facility] Activated partial thrombopla stin time (aPTT) in platelet poor plasma by coagulation aOrdered By: White on 01-12-2025 aPTT Coag (PPP) [Time] 76.6 s High 24.1-36.2 [facility] Partial Thromboplast Timeon 01-12-2025 aPTT Coag (Bld) [Time] 76.6 s High 24.1-36.2 [facility] Comment on above: Performed By: #### L 300.4310 ####[facility] [address] [place], [place], [id number] aPTT Coag (Bld) [Time] 60.2 s High 24.1-36.2 [facility] Comment on above: Order Comment: Comme nts: time sensitive hep gtt Performed By: #### L 300.4310 ####[facility] [address] [place], [place], [id number] Absolute lymphocyte countOrd ered By: Sommer White on 01-11-2025 Lymphocytes Auto (Unsp spec) [#/Vol] 1.07 10*3/uL 0.83-4.51 [facility] Absolute neutrophil countOrd ered By: on 01-11-2025 Neutrophils (Bld) [#/Vol] 3.6 10*3/uL 2.0-7.7 [facility] Albumin to globulin ratioOrd ered By: on 01-11-2025 Albumin/Globulin [Mass ratio] 0.8 {ratio} Low 0.9-2.4 [facility] Automated lymphocyte count a s percentage of total leukocytesOrdered By: White on 01-11-2025 Lymphocytes/100 WBC Auto (Unsp spec) 20.5 % 19-41 [facility] Basophil percentageOrdered B y: White on 01-11-2025 Basophils/100 WBC (Bld) 0.4 % 0-1 [facility] Bilirubin, totalOrdered By: Sommer Resendiz on 01-11-2025 Bilirubin [Mass/Vol] 0.30 mg/dL 0.20-1.00 [facility] Comment on above: For patients on eltr ombopag therapy, use of Dimension Dougherty TBIL is not recommended. Blood urea nitrogen (BUN)/cr eatinine ratioOrdered By: Sommer Resendiz on 01-11-2025 Urea nitrogen/Creatinine [Mass ratio] 20.8 mg/mg High 10-20 [facility] CBC W/Diff, Automatedon 12-21 Absolute Lymph 1.07 X10 3/uL Normal 0.83-4.51 [facility] Comment on above: Performed By: #### L 501.4020, L500.4050, L100.0100 ####[facility] [address] [place], [address] Absolute Neut 3.6 X10 3/uL Normal 2.0-7.7 [facility] Comment on above: Performed By: #### L 501.4020, L500.4050, L100.0100 ####[facility] [address] [place], [address] Basophils/100 WBC (Bld) 0.4 % Normal 0-1 [facility] Comment on above: Performed By: #### L 501.4020, L500.4050, L100.0100 ####[facility] [address] [place], [address] Eosinophils/100 WBC (Bld) 1.0 % Normal 0-5 [facility] Comment on above: Performed By: #### L 501.4020, L500.4050, L100.0100 ####[facility] [address] [place], [address] Erythrocyte distribution width (RBC) [Ratio] 14.9 % High 11.6-14.6 [facility] Comment on above: Performed By: #### L 501.4020, L500.4050, L100.0100 ####[facility] [address] [place], [address] Hematocrit (Bld) [Volume fraction] 39.1 % Normal 37-47 [facility] Comment on above: Performed By: #### L 501.4020, L500.4050, L100.0100 ####[facility] [address] [place], [address] Hemoglobin (Bld) [Mass/Vol] 12.5 g/dL Normal 12.0-15.0 [facility] Comment on above: Performed By: #### L 501.4020, L500.4050, L100.0100 ####[facility] [address] [place], [address] IG% 0.400 Normal 0.0-0.9 [facility] Comment on above: Result Comment: IG% - Immature Granulocytes (promyelocytes, myelocytes andmetamyelocytes) > 1% indicates that a LEFT SHIFT is Present. Performed By: #### L 501.4020, L500.4050, L100.0100 ####[facility] [address] [place], [address] Lymphocytes/100 WBC (Bld) 20.5 % Normal 19-41 [facility] Comment on above: Performed By: #### L 501.4020, L500.4050, L100.0100 ####[facility] [address] [place], [address] MCH (RBC) [Entitic mass] 26.4 pg Low 27.0-32.0 [facility] Comment on above: Performed By: #### L 501.4020, L500.4050, L100.0100 ####[facility] [address] [place], [address] MCHC (RBC) [Mass/Vol] 32.0 g/dL Normal 32-36 [facility] Comment on above: Performed By: #### L 501.4020, L500.4050, L100.0100 ####[facility] [address] [place], [address] MCV (RBC) [Entitic vol] 82.7 fL Normal 81-99 [facility] Comment on above: Performed By: #### L 501.4020, L500.4050, L100.0100 ####[facility] [address] [place], [address] Monocytes/100 WBC (Bld) 9.4 % Normal 0-10 [facility] Comment on above: Performed By: #### L 501.4020, L500.4050, L100.0100 ####[facility] [address] [place], [address] Neutrophils/100 WBC (Bld) 68.3 % Normal 47-70 [facility] Comment on above: Performed By: #### L 501.4020, L500.4050, L100.0100 ####[facility] [address] [place], [address] Nucleated RBC (Bld) [#/Vol] 0 10*3/uL Normal 0-5 [facility] Comment on above: Performed By: #### L 501.4020, L500.4050, L100.0100 ####[facility] [address] [place], [address] Platelet mean volume (Bld) [Entitic vol] 10.4 fL Normal 6.2-12.0 [facility] Comment on above: Performed By: #### L 501.4020, L500.4050, L100.0100 ####[facility] [address] [place], [address] Platelets (Bld) [#/Vol] 158 10*3/uL Normal 150-450 [facility] Comment on above: Performed By: #### L 501.4020, L500.4050, L100.0100 ####[facility] [address] [place], [address] RBC (Bld) [#/Vol] 4.73 10*6/uL Normal 4.2-5.4 [facility] Comment on above: Performed By: #### L 501.4020, L500.4050, L100.0100 ####[facility] [address] [place], [address] RDW SD 45.2 fl High 35.1-43.9 [facility] Comment on above: Performed By: #### L 501.4020, L500.4050, L100.0100 ####[facility] [address] [place], [address] WBC (Bld) [#/Vol] 5.2 10*3/uL Normal 4.4-11.0 [facility] Comment on above: Performed By: #### L 501.4020, L500.4050, L100.0100 ####[facility] [address] [place], [address] Carbon dioxide measurementOr dered By: Sommer Resendiz on 01-11-2025 CO2 [Moles/Vol] 25.0 mmol/L 21.0-32.0 [facility] Chloride measurementOrdered By: Sommer Resendiz on 01-11-2025 Chloride [Moles/Vol] 101 mmol/L 98-107 [facility] Comprehensive Metabolic Prof ilon 01-11-2025 Albumin [Mass/Vol] 3.4 g/dL Normal 3.2-5.0 [facility] Comment on above: Order Comment: Comme nts: SPECIMEN #2'TROP' Serial specimen #1, #2 or #3: 2 Performed By: #### L 501.4020, L500.4050, L100.0100 ####[facility] [address] [place], [address] Albumin/Globulin [Mass ratio] 0.8 {ratio} Low 0.9-2.4 [facility] Comment on above: Order Comment: Comme nts: SPECIMEN #2'TROP' Serial specimen #1, #2 or #3: 2 Performed By: #### L 501.4020, L500.4050, L100.0100 ####[facility] [address] [place], [address] ALK P 182 U/L High 45-117 [facility] Comment on above: Order Comment: Comme nts: SPECIMEN #2'TROP' Serial specimen #1, #2 or #3: 2 Performed By: #### L 501.4020, L500.4050, L100.0100 ####[facility] [address] [place], [address] ALT [Catalytic activity/Vol] 22 U/L Normal 13-56 [facility] Comment on above: Order Comment: Comme nts: SPECIMEN #2'TROP' Serial specimen #1, #2 or #3: 2 Performed By: #### L 501.4020, L500.4050, L100.0100 ####[facility] [address] [place], [address] AST [Catalytic activity/Vol] 27 U/L Normal 15-37 [facility] Comment on above: Order Comment: Comme nts: SPECIMEN #2'TROP' Serial specimen #1, #2 or #3: 2 Performed By: #### L 501.4020, L500.4050, L100.0100 ####[facility] [address] [place], [address] Bilirubin [Mass/Vol] 0.30 mg/dL Normal 0.20-1.00 [facility] Comment on above: Order Comment: Comme nts: SPECIMEN #2'TROP' Serial specimen #1, #2 or #3: 2 Result Comment: For patients on eltrombopag therapy, use of Dimension Dougherty TBIL is not recommended. Performed By: #### L 501.4020, L500.4050, L100.0100 ####[facility] [address] [place], [address] BUN/CRE 20.8 RATIO High 10-20 [facility] Comment on above: Order Comment: Comme nts: SPECIMEN #2'TROP' Serial specimen #1, #2 or #3: 2 Performed By: #### L 501.4020, L500.4050, L100.0100 ####[facility] [address] [place], [address] CA,Total 9.3 mg/dL Normal 8.5-10.1 [facility] Comment on above: Order Comment: Comme nts: SPECIMEN #2'TROP' Serial specimen #1, #2 or #3: 2 Performed By: #### L 501.4020, L500.4050, L100.0100 ####[facility] [address] [place], [address] Chloride [Moles/Vol] 101 mmol/L Normal 98-107 [facility] Comment on above: Order Comment: Comme nts: SPECIMEN #2'TROP' Serial specimen #1, #2 or #3: 2 Performed By: #### L 501.4020, L500.4050, L100.0100 ####[facility] [address] [place], [address] CO2 [Moles/Vol] 25.0 mmol/L Normal 21.0-32.0 [facility] Comment on above: Order Comment: Comme nts: SPECIMEN #2'TROP' Serial specimen #1, #2 or #3: 2 Performed By: #### L 501.4020, L500.4050, L100.0100 ####[facility] [address] [place], [address] Creatinine [Mass/Vol] 1.06 mg/dL High 0.55-1.02 [facility] Comment on above: Order Comment: Comme nts: SPECIMEN #2'TROP' Serial specimen #1, #2 or #3: 2 Result Comment: The validity of the calculated GFR GFRAA in patients over70 years has not been determined. Clinical correlation isessential. Performed By: #### L 501.4020, L500.4050, L100.0100 ####[facility] [address] [place], [address] ECRCL 39.37 ml/min Normal [facility] Comment on above: Order Comment: Comme nts: SPECIMEN #2'TROP' Serial specimen #1, #2 or #3: 2 Performed By: #### L 501.4020, L500.4050, L100.0100 ####[facility] [address] [place], [address] EST GFR - AA 66 mL/min Normal >60 [facility] Comment on above: Order Comment: Comme nts: SPECIMEN #2'TROP' Serial specimen #1, #2 or #3: 2 Result Comment: Afri can Nicaraguan GFR Calc Performed By: #### L 501.4020, L500.4050, L100.0100 ####[facility] [address] [place], [address] GAP 8 Normal 5-15 [facility] Comment on above: Order Comment: Comme nts: SPECIMEN #2'TROP' Serial specimen #1, #2 or #3: 2 Performed By: #### L 501.4020, L500.4050, L100.0100 ####[facility] [address] [place], [address] GFR/1.73 sq M.predicted among non-blacks MDRD (S/P/Bld) [Vol rate/Area] 54 mL/min/{1.73_m2} Low >60 [facility] Comment on above: Order Comment: Comme nts: SPECIMEN #2'TROP' Serial specimen #1, #2 or #3: 2 Result Comment: Non- GFR Calc Performed By: #### L 501.4020, L500.4050, L100.0100 ####[facility] [address] [place], [address] Globulin (S) [Mass/Vol] 4.0 g/dL Normal 2.2-4.2 [facility] Comment on above: Order Comment: Comme nts: SPECIMEN #2'TROP' Serial specimen #1, #2 or #3: 2 Performed By: #### L 501.4020, L500.4050, L100.0100 ####[facility] [address] [place], [address] Glucose [Mass/Vol] 106 mg/dL Normal 74-106 [facility] Comment on above: Order Comment: Comme nts: SPECIMEN #2'TROP' Serial specimen #1, #2 or #3: 2 Result Comment: Fast ing Glucose result from 100 to 125 mg/dLsuggests IMPAIRED HOMEOSTASIS per A.D.A. criteria. Performed By: #### L 501.4020, L500.4050, L100.0100 ####[facility] [address] [place], [address] Potassium [Moles/Vol] 4.2 mmol/L Normal 3.5-5.1 [facility] Comment on above: Order Comment: Comme nts: SPECIMEN #2'TROP' Serial specimen #1, #2 or #3: 2 Performed By: #### L 501.4020, L500.4050, L100.0100 ####[facility] [address] [place], [address] Sodium [Moles/Vol] 135 mmol/L Low 136-145 [facility] Comment on above: Order Comment: Comme nts: SPECIMEN #2'TROP' Serial specimen #1, #2 or #3: 2 Performed By: #### L 501.4020, L500.4050, L100.0100 ####[facility] [address] [place], [address] T PROT 7.4 g/dL Normal 6.4-8.2 [facility] Comment on above: Order Comment: Comme nts: SPECIMEN #2'TROP' Serial specimen #1, #2 or #3: 2 Performed By: #### L 501.4020, L500.4050, L100.0100 ####[facility] [address] [place], [address] Urea nitrogen [Mass/Vol] 22 mg/dL High 7-18 [facility] Comment on above: Order Comment: Comme nts: SPECIMEN #2'TROP' Serial specimen #1, #2 or #3: 2 Performed By: #### L 501.4020, L500.4050, L100.0100 ####[facility] [address] [place], [address] Consultation - Cardiologyon 01-11-2025 Consultation - Cardiology Normal [facility] Echo Completeon 01-11-2025 Echo Complete Normal [facility] Eosinophil percentageOrdered By: White on 01-11-2025 Eosinophils/100 WBC (Bld) 1.0 % 0-5 [facility] Erythrocyte distribution wid th ratioOrdered By: Sommer White on 01-11-2025 Erythrocyte distribution width (RBC) [Ratio] 14.9 % High 11.6-14.6 [facility] Erythrocyte distribution wid th standard deviationOrdered By: White on 01-11-2025 Erythrocyte distribution width (RBC) [Ratio] 45.2 fl High 35.1-43.9 [facility] Glomerular filtration rate ( GFR) estimationOrdered By: Sommer White on 01-11-2025 GFR/1.73 sq M.predicted among non-blacks MDRD (S/P/Bld) [Vol rate/Area] 54 mL/min/{1.73_m2} Low >60 [facility] Comment on above: Non- GFR Calc Glucose measurementOrdered B y: Sommer White on 01-11-2025 Glucose [Mass/Vol] 106 mg/dL 74-106 [facility] Comment on above: Fasting Glucose resu lt from 100 to 125 mg/dL suggests IMPAIRED HOMEOSTASIS per A.D.A. criteria. Hematocrit Auto (Bld) [Volum e fraction]Ordered By: Sommer Resendiz on 01-11-2025 Hematocrit (Bld) [Volume fraction] 39.1 % 37-47 [facility] Hemoglobin measurementOrdere d By: Sommer Resendiz on 01-11-2025 Hemoglobin (Bld) [Mass/Vol] 12.5 g/dL 12.0-15.0 [facility] Immature granulocytes/100 WB C Auto (Bld)Ordered By: Sommer Martín on 01-11-2025 Immature granulocytes/100 WBC (Bld) 0.400 % 0.0-0.9 [facility] Comment on above: IG% - Immature Granu locytes (promyelocytes, myelocytes and metamyelocytes) > 1% indicates that a LEFT SHIFT is Present. International normalized rat io (INR) calculationOrdered By: Benjy Flores on 01-11-2025 INR Coag (Bld) [Relative time] 1.0 {INR} [facility] L501.4020on 01-11-2025 TROPONIN-I HS 1688 pg/mL Invalid Interpretation Code 3.0-54.0 [facility] Comment on above: Order Comment: Comme nts: SPECIMEN #3'TROP' Serial specimen #1, #2 or #3: 3 Result Comment: Crit ical Result(s) Called at: 10:12:22 01/11/2025 by:Joana Lainez. Results read back by same. Please Note: New Test Units and Gender Specific Reference Ranges. For more information see Policy Stat Procedure Dougherty High Sensitivity Troponin (TNIH) and attachments. Performed By: #### L 501.4020 ####[facility] [address] [place], [address] TROPONIN-I HS 1841 pg/mL Invalid Interpretation Code 3.0-54.0 [facility] Comment on above: Order Comment: Comme nts: SPECIMEN #2'TROP' Serial specimen #1, #2 or #3: 2 Result Comment: Crit ical Result(s) Called at: 06:12:52 01/11/2025 by:Joana Mariscal. Results read back by same. Please Note: New Test Units and Gender Specific Reference Ranges. For more information see Policy Stat Procedure [place] High Sensitivity Troponin (TNIH) and attachments. Performed By: #### L 501.4020, L500.4050, L100.0100 ####[facility] [address] [place], [address] TROPONIN-I HS 1798 pg/mL Invalid Interpretation Code 3.0-54.0 [facility] Comment on above: Order Comment: 'TROP ' Serial specimen #1, #2 or #3: 1 Result Comment: Crit ical Result(s) Called at: 04:22:19 01/11/2025 by:LORENA KENDALL TO EVERT FAY. Results read back by same. Please Note: New Test Units and Gender Specific Reference Ranges. For more information see Policy Stat Procedure [place] High Sensitivity Troponin (TNIH) and attachments. Performed By: #### L 501.4020 ####[facility] [address] [place], [place], [id number] Laboratory - Chemistry and C hemistry - challengeOrdered By: Sommer Resendiz on 01-11-2025 AST [Catalytic activity/Vol] 27 U/L 15-37 [facility] M100.019on 01-11-2025 M100.019 Negative Normal [facility] Comment on above: Performed By: #### M 100.019 ####[facility] [address] [place], [place], [address] MCV (mean corpuscular volume ) determinationOrdered By: Sommer Resendiz on 01-11-2025 MCV (RBC) [Entitic vol] 82.7 fL 81-99 [facility] Magnesiumon 01-11-2025 Magnesium [Mass/Vol] 2.0 mg/dL Normal 1.6-2.6 [facility] Comment on above: Order Comment: Comme nts: may add to ED labs Performed By: #### L 501.5200 ####[facility] [address] [place], [place], [id number] Mean corpuscular hemoglobin (MCH) determinationOrdered By: Sommer Resendiz on 01-11-2025 MCH (RBC) [Entitic mass] 26.4 pg Low 27.0-32.0 [facility] Mean corpuscular hemoglobin concentration (MCHC) determinationOrdered By: Sommer White on 01-11-2025 MCHC (RBC) [Mass/Vol] 32.0 g/dL 32-36 [facility] Mean platelet volume determi nationOrdered By: Sommer White on 01-11-2025 Platelet mean volume (Bld) [Entitic vol] 10.4 fL 6.2-12.0 [facility] Monocyte percentageOrdered B y: [facility] White on 01-11-2025 Monocytes/100 WBC (Bld) 9.4 % 0-10 [facility] Neutrophil percentageOrdered By: Sommer White on 01-11-2025 Neutrophils/100 WBC (Bld) 68.3 % 47-70 [facility] No Panel InformationOrdered By: [facility] Martín on 01-11-2025 27 U/L 15-37 [facility] Nucleated red blood cell per centageOrdered By: [facility] Martín on 01-11-2025 Nucleated RBC/100 WBC (Bld) [Ratio] 0 % 0-5 [facility] Partial Thromboplast Timeon 01-11-2025 aPTT Coag (Bld) [Time] 64.4 s High 24.1-36.2 [facility] Comment on above: Order Comment: Comme nts: time sensitive hep gtt Performed By: #### L 870.3790 ####[facility] [address] [place], [place], [id number] aPTT Coag (Bld) [Time] 76.9 s High 24.1-36.2 [facility] Comment on above: Performed By: #### L 300.4310 ####[facility] [address] [place], [address] aPTT Coag (Bld) [Time] 53.2 s High 24.1-36.2 [facility] Comment on above: Order Comment: Comme nts: heparin gtt Performed By: #### L 300.4310 ####[facility] [address] [place], [address] aPTT Coag (Bld) [Time] 28.3 s Normal 24.1-36.2 [facility] Comment on above: Performed By: #### L 300.3900, L300.4310 ####[facility] [address] [place], [address] Platelet countOrdered By: Lissa Resendiz on 01-11-2025 Platelets (Bld) [#/Vol] 158 10*3/uL 150-450 [facility] Potassium measurementOrdered By: Sommer Resendiz on 01-11-2025 Potassium [Moles/Vol] 4.2 mmol/L 3.5-5.1 [facility] Prothrombin Time w/INRon INR Coag (PPP) [Relative time] 1.0 {INR} Normal [facility] Comment on above: Performed By: #### L 300.3900, L300.4310 ####[facility] [address] [place], [address] PT Coag (PPP) [Time] 12.9 s Normal 11.7-14.9 [facility] Comment on above: Performed By: #### L 300.3900, L300.4310 ####[facility] [address] [place], [address] Prothrombin timeOrdered By: Benjy Flores on 01-11-2025 PT Coag (PPP) [Time] 12.9 s 11.7-14.9 [facility] RBC Auto (Bld) [#/Vol]Ordere d By: Sommer Resendiz on 01-11-2025 RBC (Bld) [#/Vol] 4.73 10*6/uL 4.2-5.4 [facility] RESPIRATORY PANEL MOLECULARo n 01-11-2025 RP PANEL Normal [facility] Comment on above: Performed By: #### M 100.638 ####[facility] [address] [place], [address] Ltgo-vfc-9Feiplmb By: Sommer Resendiz on 01-11-2025 SARS-CoV-2 (COVID-19) RNA JAYDON+probe Ql (Unsp spec) [facility] Serum anion gap measurementO rdered By: Sommer Resendiz on 01-11-2025 Anion gap [Moles/Vol] 8 mmol/L 5-15 [facility] Serum globulin measurementOr dered By: Sommer Resendiz on 01-11-2025 Globulin (S) [Mass/Vol] 4.0 g/dL 2.2-4.2 [facility] Serum or plasma alanine pizarro otransferase (ALT) measurementOrdered By: Sommer Resendiz on 01-11-2025 ALT [Catalytic activity/Vol] 22 U/L 13-56 [facility] Serum or plasma albumin stefania urement (mass/volume)Ordered By: Sommer Resendiz on 01-11-2025 Albumin [Mass/Vol] 3.4 g/dL 3.2-5.0 [facility] Serum or plasma alkaline anthony sphatase measurementOrdered By: Sommer Resendiz on 01-11-2025 ALP [Catalytic activity/Vol] 182 U/L High 45-117 [facility] Serum or plasma calcium stefania urement (mass/volume)Ordered By: Sommer Resendiz on 01-11-2025 Calcium [Mass/Vol] 9.3 mg/dL 8.5-10.1 [facility] Serum or plasma creatinine m easurement (mass/volume)Ordered By: Sommer Resendiz on 01-11-2025 Creatinine [Mass/Vol] 1.06 mg/dL High 0.55-1.02 [facility] Comment on above: The validity of the calculated GFR & GFRAA in patients over 70 years has not been determined. Clinical correlation is essential. Serum or plasma urea nitroge n measurement (mass/volume)Ordered By: Sommer Resendiz on 01-11-2025 Urea nitrogen [Mass/Vol] 22 mg/dL High 7-18 [facility] Sodium levelOrdered By: Cynthia mn Martín on 01-11-2025 Sodium [Moles/Vol] 135 mmol/L Low 136-145 [facility] Total proteinOrdered By: Julian umn Martín on 01-11-2025 Protein [Mass/Vol] 7.4 g/dL 6.4-8.2 [facility] Troponin IOrdered By: Sommer Martín on 01-11-2025 Troponin I 1688 pg/mL High 3.0-54.0 [facility] Comment on above: Critical Result(s) C alled at: 10:12:22 01/11/2025 by: Joana Salazar to Fatou. Results read back by same. Please Note: New Test Units and Gender Specific Reference Ranges. For more information see Policy Stat Procedure [facility] High Sensitivity Troponin (TNIH) and attachments. White blood cell (WBC) count Ordered By: Sommre Resendiz on 01-11-2025 WBC (Bld) [#/Vol] 5.2 10*3/uL 4.4-11.0 [facility] 12 Lead EKGon 01-10-2025 12 Lead EKG Normal [facility] BNP (brain natriuretic pepti de measurement)Ordered By: Benjy Flores on 01-10-2025 Natriuretic peptide B (Bld) [Mass/Vol] 411.9 pg/mL High 0-100 [facility] BNP,B-Type NATRIURETIC PEPTI Hodan 01-10-2025 Natriuretic peptide B (Bld) [Mass/Vol] 411.9 pg/mL High 0-100 [facility] Comment on above: Performed By: #### L 503.6670 ####[facility] [address] [place], [address] Basic Metabolic Profile (BMP )on 01-10-2025 BUN/CRE 20.4 RATIO High 10-20 [facility] Comment on above: Order Comment: 'TROP ' Serial specimen #1, #2 or #3: 1 Performed By: #### L 100.0100, L501.4020, L500.2500 ####[facility] [address] [place], [address] CA,Total 9.5 mg/dL Normal 8.5-10.1 [facility] Comment on above: Order Comment: 'TROP ' Serial specimen #1, #2 or #3: 1 Performed By: #### L 100.0100, L501.4020, L500.2500 ####[facility] [address] [place], [address] Chloride [Moles/Vol] 101 mmol/L Normal 98-107 [facility] Comment on above: Order Comment: 'TROP ' Serial specimen #1, #2 or #3: 1 Performed By: #### L 100.0100, L501.4020, L500.2500 ####[facility] [address] [place], [address] CO2 [Moles/Vol] 22.0 mmol/L Normal 21.0-32.0 [facility] Comment on above: Order Comment: 'TROP ' Serial specimen #1, #2 or #3: 1 Performed By: #### L 100.0100, L501.4020, L500.2500 ####[facility] [address] [place], [address] Creatinine [Mass/Vol] 1.08 mg/dL High 0.55-1.02 [facility] Comment on above: Order Comment: 'TROP ' Serial specimen #1, #2 or #3: 1 Result Comment: The validity of the calculated GFR GFRAA in patients over70 years has not been determined. Clinical correlation isessential. Performed By: #### L 100.0100, L501.4020, L500.2500 ####[facility] [address] [place], [address] ECRCL 40.02 ml/min Normal [facility] Comment on above: Order Comment: 'TROP ' Serial specimen #1, #2 or #3: 1 Performed By: #### L 100.0100, L501.4020, L500.2500 ####[facility] [address] [place], [address] EST GFR - AA 64 mL/min Normal >60 [facility] Comment on above: Order Comment: 'TROP ' Serial specimen #1, #2 or #3: 1 Result Comment: Afri can Nicaraguan GFR Calc Performed By: #### L 100.0100, L501.4020, L500.2500 ####[facility] [address] [place], [address] GAP 11 Normal 5-15 [facility] Comment on above: Order Comment: 'TROP ' Serial specimen #1, #2 or #3: 1 Performed By: #### L 100.0100, L501.4020, L500.2500 ####[facility] [address] [place], [address] GFR/1.73 sq M.predicted among non-blacks MDRD (S/P/Bld) [Vol rate/Area] 53 mL/min/{1.73_m2} Low >60 [facility] Comment on above: Order Comment: 'TROP ' Serial specimen #1, #2 or #3: 1 Result Comment: Non- GFR Calc Performed By: #### L 100.0100, L501.4020, L500.2500 ####[facility] [address] [place], [address] Glucose [Mass/Vol] 114 mg/dL High 74-106 [facility] Comment on above: Order Comment: 'TROP ' Serial specimen #1, #2 or #3: 1 Result Comment: Fast ing Glucose result from 100 to 125 mg/dLsuggests IMPAIRED HOMEOSTASIS per A.D.A. criteria. Performed By: #### L 100.0100, L501.4020, L500.2500 ####[facility] [address] [place], [address] Potassium [Moles/Vol] 3.8 mmol/L Normal 3.5-5.1 [facility] Comment on above: Order Comment: 'TROP ' Serial specimen #1, #2 or #3: 1 Performed By: #### L 100.0100, L501.4020, L500.2500 ####[facility] [address] [place], [address] Sodium [Moles/Vol] 134 mmol/L Low 136-145 [facility] Comment on above: Order Comment: 'TROP ' Serial specimen #1, #2 or #3: 1 Performed By: #### L 100.0100, L501.4020, L500.2500 ####[facility] [address] [place], [address] Urea nitrogen [Mass/Vol] 22 mg/dL High 7-18 [facility] Comment on above: Order Comment: 'TROP ' Serial specimen #1, #2 or #3: 1 Performed By: #### L 100.0100, L501.4020, L500.2500 ####[facility] [address] [place], [address] Brain/Head without Contrasto n 01-10-2024 Brain/Head without Contrast Normal [facility] CBC W/Diff, Automatedon 12-21 Absolute Lymph 0.72 X10 3/uL Low 0.83-4.51 [facility] Comment on above: Performed By: #### L 100.0100, L501.4020, L500.2500 ####[facility] [address] [place], [address] Absolute Neut 5.9 X10 3/uL Normal 2.0-7.7 [facility] Comment on above: Performed By: #### L 100.0100, L501.4020, L500.2500 ####[facility] [address] [place], [address] Basophils/100 WBC (Bld) 0.4 % Normal 0-1 [facility] Comment on above: Performed By: #### L 100.0100, L501.4020, L500.2500 ####[facility] [address] [place], [address] Eosinophils/100 WBC (Bld) 1.4 % Normal 0-5 [facility] Comment on above: Performed By: #### L 100.0100, L501.4020, L500.2500 ####[facility] [address] [place], [address] Erythrocyte distribution width (RBC) [Ratio] 14.9 % High 11.6-14.6 [facility] Comment on above: Performed By: #### L 100.0100, L501.4020, L500.2500 ####[facility] [address] [place], [address] Hematocrit (Bld) [Volume fraction] 40.1 % Normal 37-47 [facility] Comment on above: Performed By: #### L 100.0100, L501.4020, L500.2500 ####[facility] [address] [place], [address] Hemoglobin (Bld) [Mass/Vol] 13.1 g/dL Normal 12.0-15.0 [facility] Comment on above: Performed By: #### L 100.0100, L501.4020, L500.2500 ####[facility] [address] [place], [address] IG% 0.400 Normal 0.0-0.9 [facility] Comment on above: Result Comment: IG% - Immature Granulocytes (promyelocytes, myelocytes andmetamyelocytes) > 1% indicates that a LEFT SHIFT is Present. Performed By: #### L 100.0100, L501.4020, L500.2500 ####[facility] [address] [place], [address] Lymphocytes/100 WBC (Bld) 9.8 % Low 19-41 [facility] Comment on above: Performed By: #### L 100.0100, L501.4020, L500.2500 ####[facility] [address] [place], [address] MCH (RBC) [Entitic mass] 26.6 pg Low 27.0-32.0 [facility] Comment on above: Performed By: #### L 100.0100, L501.4020, L500.2500 ####[facility] [address] [place], [address] MCHC (RBC) [Mass/Vol] 32.7 g/dL Normal 32-36 [facility] Comment on above: Performed By: #### L 100.0100, L501.4020, L500.2500 ####[facility] [address] [place], [address] MCV (RBC) [Entitic vol] 81.5 fL Normal 81-99 [facility] Comment on above: Performed By: #### L 100.0100, L501.4020, L500.2500 ####[facility] [address] [place], [address] Monocytes/100 WBC (Bld) 8.0 % Normal 0-10 [facility] Comment on above: Performed By: #### L 100.0100, L501.4020, L500.2500 ####[facility] [address] [place], [address] Neutrophils/100 WBC (Bld) 80.0 % High 47-70 [facility] Comment on above: Performed By: #### L 100.0100, L501.4020, L500.2500 ####[facility] [address] [place], [address] Nucleated RBC (Bld) [#/Vol] 0 10*3/uL Normal 0-5 [facility] Comment on above: Performed By: #### L 100.0100, L501.4020, L500.2500 ####[facility] [address] [place], [address] Platelet mean volume (Bld) [Entitic vol] 9.8 fL Normal 6.2-12.0 [facility] Comment on above: Performed By: #### L 100.0100, L501.4020, L500.2500 ####[facility] [address] [place], [address] Platelets (Bld) [#/Vol] 147 10*3/uL Low 150-450 [facility] Comment on above: Performed By: #### L 100.0100, L501.4020, L500.2500 ####[facility] [address] [place], [address] RBC (Bld) [#/Vol] 4.92 10*6/uL Normal 4.2-5.4 [facility] Comment on above: Performed By: #### L 100.0100, L501.4020, L500.2500 ####[facility] [address] [place], [address] RDW SD 44.3 fl High 35.1-43.9 [facility] Comment on above: Performed By: #### L 100.0100, L501.4020, L500.2500 ####[facility] [address] [place], [address] WBC (Bld) [#/Vol] 7.4 10*3/uL Normal 4.4-11.0 [facility] Comment on above: Performed By: #### L 100.0100, L501.4020, L500.2500 ####[facility] [address] [place], [address] Chest 1 View (Portable)on Chest 1 View (Portable) Normal [facility] Emergency Department Summary on 01-10-2025 Emergency Department Summary Normal [facility] H AND P Exam - Hospitaliston 01-10-2025 H&P Exam - Hospitalist Normal [facility] L501.4020on 01-10-2025 TROPONIN-I HS 2243 pg/mL Invalid Interpretation Code 3.0-54.0 [facility] Comment on above: Order Comment: 'TROP ' Serial specimen #1, #2 or #3: 1 Result Comment: Crit ical Result(s) Called at: 22:15:33 01/10/2025 by: BERYL to Juventino Rodrigez. Results read back by same. Please Note: New Test Units and Gender Specific Reference Ranges. For more information see Policy Stat Procedure [facility] High Sensitivity Troponin (TNIH) and attachments. Performed By: #### L 100.0100, L501.4020, L500.2500 ####[facility] [address] [place], [address] Magnesium measurementOrdered By: Sommer Resendiz on 01-10-2025 Magnesium [Mass/Vol] 2.0 mg/dL 1.6-2.6 [facility] Respiratory pathogens detect ion panel by molecular detection methodOrdered By: Sommer Martín on 01-10-2025 Respiratory pathogens DNA and RNA panel JAYDON+probe (Resp) [facility] Pulmonary Visit Reporton Pulmonary Visit Report Normal [facility] Cardiology Visit Reporton Cardiology Visit Report Normal [facility] 12 Lead EKGon 12-17-2024 12 Lead EKG Normal [facility] Basic Metabolic Profile (BMP )on 12-17-2024 BUN/CRE 24.1 RATIO High 10-20 [facility] Comment on above: Order Comment: 1Y Performed By: #### L 100.0500, L501.5425, L503.6005, L500.2500 ####[facility] [address] [place], [address] CA,Total 9.0 mg/dL Normal 8.5-10.1 [facility] Comment on above: Order Comment: 1Y Performed By: #### L 100.0500, L501.5425, L503.6005, L500.2500 ####[facility] [address] [place], [address] Chloride [Moles/Vol] 106 mmol/L Normal 98-107 [facility] Comment on above: Order Comment: 1Y Performed By: #### L 100.0500, L501.5425, L503.6005, L500.2500 ####[facility] [address] [place], [address] CO2 [Moles/Vol] 27.0 mmol/L Normal 21.0-32.0 [facility] Comment on above: Order Comment: 1Y Performed By: #### L 100.0500, L501.5425, L503.6005, L500.2500 ####[facility] [address] [place], [address] Creatinine [Mass/Vol] 1.08 mg/dL High 0.55-1.02 [facility] Comment on above: Order Comment: 1Y Result Comment: The validity of the calculated GFR GFRAA in patients over70 years has not been determined. Clinical correlation isessential. Performed By: #### L 100.0500, L501.5425, L503.6005, L500.2500 ####[facility] [address] [place], [address] ECRCL 40.75 ml/min Normal [facility] Comment on above: Order Comment: 1Y Performed By: #### L 100.0500, L501.5425, L503.6005, L500.2500 ####[facility] [address] [place], [address] EST GFR - AA 64 mL/min Normal >60 [facility] Comment on above: Order Comment: 1Y Result Comment: Afri can [place]ar[place] GFR Calc Performed By: #### L 100.0500, L501.5425, L503.6005, L500.2500 ####[facility] [address] [place], [address] GAP 7 Normal 5-15 [facility] Comment on above: Order Comment: 1Y Performed By: #### L 100.0500, L501.5425, L503.6005, L500.2500 ####[facility] [address] [place], [address] GFR/1.73 sq M.predicted among non-blacks MDRD (S/P/Bld) [Vol rate/Area] 53 mL/min/{1.73_m2} Low >60 [facility] Comment on above: Order Comment: 1Y Result Comment: Non- GFR Calc Performed By: #### L 100.0500, L501.5425, L503.6005, L500.2500 ####[facility] [address] [place], [address] Glucose [Mass/Vol] 96 mg/dL Normal 74-106 [facility] Comment on above: Order Comment: 1Y Performed By: #### L 100.0500, L501.5425, L503.6005, L500.2500 ####[facility] [address] [place], [address] Potassium [Moles/Vol] 4.4 mmol/L Normal 3.5-5.1 [facility] Comment on above: Order Comment: 1Y Performed By: #### L 100.0500, L501.5425, L503.6005, L500.2500 ####[facility] [address] [place], [address] Sodium [Moles/Vol] 140 mmol/L Normal 136-145 [facility] Comment on above: Order Comment: 1Y Performed By: #### L 100.0500, L501.5425, L503.6005, L500.2500 ####[facility] [address] [place], [address] Urea nitrogen [Mass/Vol] 26 mg/dL High 7-18 [facility] Comment on above: Order Comment: 1Y Performed By: #### L 100.0500, L501.5425, L503.6005, L500.2500 ####[facility] [address] [place], [address] CBC-Complete Blood Cnt No Deepti france 12-17-2024 Erythrocyte distribution width (RBC) [Ratio] 15.8 % High 11.6-14.6 [facility] Comment on above: Performed By: #### L 100.0500, L501.5425, L503.6005, L500.2500 ####[facility] [address] [place], [address] Hematocrit (Bld) [Volume fraction] 35.3 % Low 37-47 [facility] Comment on above: Performed By: #### L 100.0500, L501.5425, L503.6005, L500.2500 ####[facility] [address] [place], [address] Hemoglobin (Bld) [Mass/Vol] 11.3 g/dL Low 12.0-15.0 [facility] Comment on above: Performed By: #### L 100.0500, L501.5425, L503.6005, L500.2500 ####[facility] [address] [place], [address] MCH (RBC) [Entitic mass] 27.4 pg Normal 27.0-32.0 [facility] Comment on above: Performed By: #### L 100.0500, L501.5425, L503.6005, L500.2500 ####[facility] [address] [place], [address] MCHC (RBC) [Mass/Vol] 32.0 g/dL Normal 32-36 [facility] Comment on above: Performed By: #### L 100.0500, L501.5425, L503.6005, L500.2500 ####[facility] [address] [place], [address] MCV (RBC) [Entitic vol] 85.5 fL Normal 81-99 [facility] Comment on above: Performed By: #### L 100.0500, L501.5425, L503.6005, L500.2500 ####[facility] [address] [place], [address] Platelet mean volume (Bld) [Entitic vol] 9.9 fL Normal 6.2-12.0 [facility] Comment on above: Performed By: #### L 100.0500, L501.5425, L503.6005, L500.2500 ####[facility] [address] [place], [address] Platelets (Bld) [#/Vol] 230 10*3/uL Normal 150-450 [facility] Comment on above: Performed By: #### L 100.0500, L501.5425, L503.6005, L500.2500 ####[facility] [address] [place], [address] RBC (Bld) [#/Vol] 4.13 10*6/uL Low 4.2-5.4 [facility] Comment on above: Performed By: #### L 100.0500, L501.5425, L503.6005, L500.2500 ####[facility] [address] [place], [address] RDW SD 49.2 fl High 35.1-43.9 [facility] Comment on above: Performed By: #### L 100.0500, L501.5425, L503.6005, L500.2500 ####[facility] [address] [place], [address] WBC (Bld) [#/Vol] 8.8 10*3/uL Normal 4.4-11.0 [facility] Comment on above: Performed By: #### L 100.0500, L501.5425, L503.6005, L500.2500 ####[facility] [address] [place], [address] Carbon dioxide measurementOr dered By: Jeffy Willoughby on 12-17-2024 CO2 [Moles/Vol] 27.0 mmol/L 21.0-32.0 [facility] Chest PA and Lateralon 12-17 Chest PA and Lateral Normal [facility] Chloride measurementOrdered By: Jeffyaura Willoughby on 12-17-2024 Chloride [Moles/Vol] 106 mmol/L 98-107 [facility] Emergency Department Summary on 12-17-2024 Emergency Department Summary Normal [facility] Erythrocyte distribution wid th ratioOrdered By: Jeffy Willoughby on 12-17-2024 Erythrocyte distribution width (RBC) [Ratio] 15.8 % High 11.6-14.6 [facility] Erythrocyte distribution wid th standard deviationOrdered By: Jeffyaura Willoughby on 12-17-2024 Erythrocyte distribution width (RBC) [Ratio] 49.2 fl High 35.1-43.9 [facility] Glomerular filtration rate ( GFR) estimationOrdered By: Jeffyaura Willoughby on 12-17-2024 GFR/1.73 sq M.predicted among non-blacks MDRD (S/P/Bld) [Vol rate/Area] 53 mL/min/{1.73_m2} Low >60 [facility] Glucose measurementOrdered B y: Jeffy Willoughby on 12-17-2024 Glucose [Mass/Vol] 96 mg/dL 74-106 [facility] Hematocrit Auto (Bld) [Volum e fraction]Ordered By: Jeffyaura Willoughby on 12-17-2024 Hematocrit (Bld) [Volume fraction] 35.3 % Low 37-47 [facility] Hemoglobin measurementOrdere d By: Jeffyaura Willoughby on 12-17-2024 Hemoglobin (Bld) [Mass/Vol] 11.3 g/dL Low 12.0-15.0 [facility] L501.4020on 12-17-2024 TROPONIN-I HS 23 pg/mL Normal 3.0-54.0 [facility] Comment on above: Result Comment: Stacy pringle Note: New Test Units and Gender Specific Reference Ranges. For more information see Policy Stat Procedure Dougherty High Sensitivity Troponin (TNIH) and attachments. Performed By: #### L 501.4020 ####[facility] [address] [place], [address] L501.5425on 12-17-2024 TROPONIN-I HS 24 pg/mL Normal 3.0-54.0 [facility] Comment on above: Order Comment: 1Y Result Comment: Stacy pringle Note: New Test Units and Gender Specific Reference Ranges. For more information see Policy Stat Procedure Dougherty High Sensitivity Troponin (TNIH) and attachments. Performed By: #### L 100.0500, L501.5425, L503.6005, L500.2500 ####[facility] [address] [place], [address] Lactic Acidon 12-17-2024 Lactate [Moles/Vol] 1.5 mmol/L Normal 0.4-1.9 [facility] Comment on above: Order Comment: Y Performed By: #### L 100.0500, L501.5425, L503.6005, L500.2500 ####[facility] [address] [facility] [place], [address] MCV (mean corpuscular volume ) determinationOrdered By: [facility] 12-17-20[facility] MCV (RBC) [Entitic vol] 85.5 fL 81-99 [facility] Mean corpuscular hemoglobin (MCH) determinationOrdered By: [facility] on 12-17-2024 MCH (RBC) [Entitic mass] 27.4 pg 27.0-32.0 [facility] Platelet countOrdered By: [facility] 12-[facility] Platelets (Bld) [#/Vol] 230 10*3/uL 150-450 [facility] Potassium measurementOrdered By: [facility] on 12-17-2024 Potassium [Moles/Vol] 4.4 mmol/L 3.5-5.1 [facility] RBC Auto (Bld) [#/Vol]Ordere d By: [facility] Willoughby on 12-17-2024 RBC (Bld) [#/Vol] 4.13 10*6/uL Low 4.2-5.4 [facility] Serum or plasma calcium stefania urement (mass/volume)Ordered By: Jeffy Willoughby on 12-17-2024 Calcium [Mass/Vol] 9.0 mg/dL 8.5-10.1 [facility] Serum or plasma creatinine m easurement (mass/volume)Ordered By: Jeffy Willoughby on 12-17-2024 Creatinine [Mass/Vol] 1.08 mg/dL High 0.55-1.02 [facility] Serum or plasma urea nitroge n measurement (mass/volume)Ordered By: Jeffy Willoughby on 12-17-2024 Urea nitrogen [Mass/Vol] 26 mg/dL High 7-18 [facility] Sodium levelOrdered By: Jeffy Willoughby on 12-17-2024 Sodium [Moles/Vol] 140 mmol/L 136-145 [facility] Troponin IOrdered By: Jeffy rosario on 12-17-2024 Troponin I 23 pg/mL 3.0-54.0 [facility] White blood cell (WBC) count Ordered By: Jeffy Willoughby on 12-17-2024 WBC (Bld) [#/Vol] 8.8 10*3/uL 4.4-11.0 [facility] 12 Lead EKGon 12-11-2024 12 Lead EKG Normal [facility] Bilirubin, totalOrdered By: Kofi Weiner on 12-11-2024 Bilirubin [Mass/Vol] 0.30 mg/dL 0.20-1.00 [facility] CBC-Complete Blood Cnt No Di ffon 12-11-2024 Erythrocyte distribution width (RBC) [Ratio] 15.4 % High 11.6-14.6 [facility] Comment on above: Performed By: #### L 500.4050, L100.0500 ####[facility] [address] [place], [place], [id number] Hematocrit (Bld) [Volume fraction] 35.3 % Low 37-47 [facility] Comment on above: Performed By: #### L 500.4050, L100.0500 ####[facility] [address] [place], [address] Hemoglobin (Bld) [Mass/Vol] 11.2 g/dL Low 12.0-15.0 [facility] Comment on above: Performed By: #### L 500.4050, L100.0500 ####[facility] [address] [place], [address] MCH (RBC) [Entitic mass] 26.4 pg Low 27.0-32.0 [facility] Comment on above: Performed By: #### L 500.4050, L100.0500 ####[facility] [address] [place], [address] MCHC (RBC) [Mass/Vol] 31.7 g/dL Low 32-36 [facility] Comment on above: Performed By: #### L 500.4050, L100.0500 ####[facility] [address] [place], [address] MCV (RBC) [Entitic vol] 83.3 fL Normal 81-99 [facility] Comment on above: Performed By: #### L 500.4050, L100.0500 ####[facility] [address] [place], [address] Platelet mean volume (Bld) [Entitic vol] 10.0 fL Normal 6.2-12.0 [facility] Comment on above: Performed By: #### L 500.4050, L100.0500 ####[facility] [address] [place], [address] Platelets (Bld) [#/Vol] 197 10*3/uL Normal 150-450 [facility] Comment on above: Performed By: #### L 500.4050, L100.0500 ####[facility] [address] [place], [address] RBC (Bld) [#/Vol] 4.24 10*6/uL Normal 4.2-5.4 [facility] Comment on above: Performed By: #### L 500.4050, L100.0500 ####[facility] [address] [place], [address] RDW SD 46.5 fl High 35.1-43.9 [facility] Comment on above: Performed By: #### L 500.4050, L100.0500 ####[facility] [address] [place], [address] WBC (Bld) [#/Vol] 7.7 10*3/uL Normal 4.4-11.0 [facility] Comment on above: Performed By: #### L 500.4050, L100.0500 ####[facility] [address] [place], [address] Carbon dioxide measurementOr dered By: Kofi Weiner on 12-11-2024 CO2 [Moles/Vol] 24.0 mmol/L 21.0-32.0 [facility] Cardiac Cath Diagnosticon Cardiac Cath Diagnostic Normal [facility] Chloride measurementOrdered By: Kofi Weiner on 12-11-2024 Chloride [Moles/Vol] 103 mmol/L 98-107 [facility] Comprehensive Metabolic Prof ilon 12-11-2024 Albumin [Mass/Vol] 3.0 g/dL Low 3.2-5.0 [facility] Comment on above: Performed By: #### L 500.4050, L100.0500 ####[facility] [address] [place], [address] Albumin/Globulin [Mass ratio] 0.9 {ratio} Normal 0.9-2.4 [facility] Comment on above: Performed By: #### L 500.4050, L100.0500 ####[facility] [address] [place], [address] ALK P 123 U/L High 45-117 [facility] Comment on above: Performed By: #### L 500.4050, L100.0500 ####[facility] [address] [place], [address] ALT [Catalytic activity/Vol] 12 U/L Low 13-56 [facility] Comment on above: Performed By: #### L 500.4050, L100.0500 ####[facility] [address] [place], [address] AST [Catalytic activity/Vol] 13 U/L Low 15-37 [facility] Comment on above: Performed By: #### L 500.4050, L100.0500 ####[facility] [address] [place], [address] Bilirubin [Mass/Vol] 0.30 mg/dL Normal 0.20-1.00 [facility] Comment on above: Result Comment: For patients on eltrombopag therapy, use of Dimension Dougherty TBIL is not recommended. Performed By: #### L 500.4050, L100.0500 ####[facility] [address] [place], [address] BUN/CRE 20.3 RATIO High 10-20 [facility] Comment on above: Performed By: #### L 500.4050, L100.0500 ####[facility] [address] [place], [address] CA,Total 8.9 mg/dL Normal 8.5-10.1 [facility] Comment on above: Performed By: #### L 500.4050, L100.0500 ####[facility] [address] [place], [address] Chloride [Moles/Vol] 103 mmol/L Normal 98-107 [facility] Comment on above: Performed By: #### L 500.4050, L100.0500 ####[facility] [address] [place], [address] CO2 [Moles/Vol] 24.0 mmol/L Normal 21.0-32.0 [facility] Comment on above: Performed By: #### L 500.4050, L100.0500 ####[facility] [address] [place], [address] Creatinine [Mass/Vol] 1.18 mg/dL High 0.55-1.02 [facility] Comment on above: Result Comment: The validity of the calculated GFR GFRAA in patients over70 years has not been determined. Clinical correlation isessential. Performed By: #### L 500.4050, L100.0500 ####[facility] [address] [place], [address] ECRCL 36.07 ml/min Normal [facility] Comment on above: Performed By: #### L 500.4050, L100.0500 ####[facility] [address] [place], [address] EST GFR - AA 58 mL/min Low >60 [facility] Comment on above: Result Comment: Afri can Nicaraguan GFR Calc Performed By: #### L 500.4050, L100.0500 ####[facility] [address] [place], [address] GAP 8 Normal 5-15 [facility] Comment on above: Performed By: #### L 500.4050, L100.0500 ####[facility] [address] [place], [address] GFR/1.73 sq M.predicted among non-blacks MDRD (S/P/Bld) [Vol rate/Area] 48 mL/min/{1.73_m2} Low >60 [facility] Comment on above: Result Comment: Non- GFR Calc Performed By: #### L 500.4050, L100.0500 ####[facility] [address] [place], [address] Globulin (S) [Mass/Vol] 3.4 g/dL Normal 2.2-4.2 [facility] Comment on above: Performed By: #### L 500.4050, L100.0500 ####[facility] [address] [place], [address] Glucose [Mass/Vol] 98 mg/dL Normal 74-106 [facility] Comment on above: Performed By: #### L 500.4050, L100.0500 ####[facility] [address] [place], [address] Potassium [Moles/Vol] 4.0 mmol/L Normal 3.5-5.1 [facility] Comment on above: Performed By: #### L 500.4050, L100.0500 ####[facility] [address] [place], [address] Sodium [Moles/Vol] 135 mmol/L Low 136-145 [facility] Comment on above: Performed By: #### L 500.4050, L100.0500 ####[facility] [address] [place], [address] T PROT 6.4 g/dL Normal 6.4-8.2 [facility] Comment on above: Performed By: #### L 500.4050, L100.0500 ####[facility] [address] [place], [address] Urea nitrogen [Mass/Vol] 24 mg/dL High 7-18 [facility] Comment on above: Performed By: #### L 500.4050, L100.0500 ####[facility] [address] [place], [address] Discharge Instructionon 11-20 Discharge Instruction Normal [facility] Erythrocyte distribution wid th ratioOrdered By: Kofi Weiner on 12-11-2024 Erythrocyte distribution width (RBC) [Ratio] 15.4 % High 11.6-14.6 [facility] Erythrocyte distribution wid th standard deviationOrdered By: Kofi Weiner on 12-11-2024 Erythrocyte distribution width (RBC) [Ratio] 46.5 fl High 35.1-43.9 [facility] Glomerular filtration rate ( GFR) estimationOrdered By: Kofi Weiner on 12-11-2024 GFR/1.73 sq M.predicted among non-blacks MDRD (S/P/Bld) [Vol rate/Area] 48 mL/min/{1.73_m2} Low >60 [facility] Glucose measurementOrdered B y: Kofi Weiner on 12-11-2024 Glucose [Mass/Vol] 98 mg/dL 74-106 [facility] Hematocrit Auto (Bld) [Volum e fraction]Ordered By: Kofi Weiner on 12-11-2024 Hematocrit (Bld) [Volume fraction] 35.3 % Low 37-47 [facility] Hemoglobin measurementOrdere d By: Kofi Weiner on 12-11-2024 Hemoglobin (Bld) [Mass/Vol] 11.2 g/dL Low 12.0-15.0 [facility] MCV (mean corpuscular volume ) determinationOrdered By: Kofi Weiner on 12-11-2024 MCV (RBC) [Entitic vol] 83.3 fL 81-99 [facility] Mean corpuscular hemoglobin (MCH) determinationOrdered By: Kofi Weiner on 12-11-2024 MCH (RBC) [Entitic mass] 26.4 pg Low 27.0-32.0 [facility] No Panel InformationOrdered By: Kofi Weiner on 12-11-2024 13 U/L Low 15-37 [facility] Platelet countOrdered By: Kacie Weiner on 12-11-2024 Platelets (Bld) [#/Vol] 197 10*3/uL 150-450 [facility] Potassium measurementOrdered By: Kofi Weiner on 12-11-2024 Potassium [Moles/Vol] 4.0 mmol/L 3.5-5.1 [facility] RBC Auto (Bld) [#/Vol]Ordere d By: Kofi Weiner on 12-11-2024 RBC (Bld) [#/Vol] 4.24 10*6/uL 4.2-5.4 [facility] Serum globulin measurementOr dered By: Kofi Weiner on 12-11-2024 Globulin (S) [Mass/Vol] 3.4 g/dL 2.2-4.2 [facility] Serum or plasma alanine pizarro otransferase (ALT) measurementOrdered By: Kofi Weiner on 12-11-2024 ALT [Catalytic activity/Vol] 12 U/L Low 13-56 [facility] Serum or plasma albumin stefania urement (mass/volume)Ordered By: Kofi Weiner on 12-11-2024 Albumin [Mass/Vol] 3.0 g/dL Low 3.2-5.0 [facility] Serum or plasma alkaline anthony sphatase measurementOrdered By: Kofi Weiner on 12-11-2024 ALP [Catalytic activity/Vol] 123 U/L High 45-117 [facility] Serum or plasma calcium stefania urement (mass/volume)Ordered By: Kofi Weiner on 12-11-2024 Calcium [Mass/Vol] 8.9 mg/dL 8.5-10.1 [facility] Serum or plasma creatinine m easurement (mass/volume)Ordered By: Kofi Weiner on 12-11-2024 Creatinine [Mass/Vol] 1.18 mg/dL High 0.55-1.02 [facility] Serum or plasma urea nitroge n measurement (mass/volume)Ordered By: Kofi Weiner on 12-11-2024 Urea nitrogen [Mass/Vol] 24 mg/dL High 7-18 [facility] Sodium levelOrdered By: Jose Weiner on 12-11-2024 Sodium [Moles/Vol] 135 mmol/L Low 136-145 [facility] Stool Occult Blood iFOBon STOB Normal [facility] Comment on above: Performed By: #### M 100.7900 ####[facility] [address] [place], [address] Stool gastrointestinal hemog lobin detection by immunologic methodOrdered By: Trina Tyler on 12-11-2024 Lower GI hemoglobin IA Ql (Stl) [facility] Total proteinOrdered By: Billy Weiner on 12-11-2024 Protein [Mass/Vol] 6.4 g/dL 6.4-8.2 [facility] White blood cell (WBC) count Ordered By: Kofi Weiner on 12-11-2024 WBC (Bld) [#/Vol] 7.7 10*3/uL 4.4-11.0 [facility] 12 Lead EKGon 12-10-2024 12 Lead EKG Normal [facility] 12 Lead EKG Normal [facility] Absolute lymphocyte countOrd ered By: Trina Tyler on 12-10-2024 Lymphocytes Auto (Unsp spec) [#/Vol] 0.76 10*3/uL Low 0.83-4.51 [facility] Automated lymphocyte count a s percentage of total leukocytesOrdered By: Trina Tyler on 12-10-2024 Lymphocytes/100 WBC Auto (Unsp spec) 10.6 % Low 19-41 [facility] Basic Metabolic Profile (BMP )on 12-10-2024 BUN/CRE 22.3 RATIO High 10-20 [facility] Comment on above: Performed By: #### L 500.4100, L100.0100, L500.2500, L501.9520 ####[facility] [address] [place], [address] CA,Total 9.2 mg/dL Normal 8.5-10.1 [facility] Comment on above: Performed By: #### L 500.4100, L100.0100, L500.2500, L501.9520 ####[facility] [address] [place], [address] Chloride [Moles/Vol] 103 mmol/L Normal 98-107 [facility] Comment on above: Performed By: #### L 500.4100, L100.0100, L500.2500, L501.9520 ####[facility] [address] [place], [address] CO2 [Moles/Vol] 26.0 mmol/L Normal 21.0-32.0 [facility] Comment on above: Performed By: #### L 500.4100, L100.0100, L500.2500, L501.9520 ####[facility] [address] [place], [address] Creatinine [Mass/Vol] 1.03 mg/dL High 0.55-1.02 [facility] Comment on above: Result Comment: The validity of the calculated GFR GFRAA in patients over70 years has not been determined. Clinical correlation isessential. Performed By: #### L 500.4100, L100.0100, L500.2500, L501.9520 ####[facility] [address] [place], [address] ECRCL 41.32 ml/min Normal [facility] Comment on above: Performed By: #### L 500.4100, L100.0100, L500.2500, L501.9520 ####[facility] [address] [place], [address] EST GFR - AA 68 mL/min Normal >60 [facility] Comment on above: Result Comment: Afri can [place] GFR Calc Performed By: #### L 500.4100, L100.0100, L500.2500, L501.9520 ####[facility] [address] [place], [address] GAP 9 Normal 5-15 [facility] Comment on above: Performed By: #### L 500.4100, L100.0100, L500.2500, L501.9520 ####[facility] [address] [place], [address] GFR/1.73 sq M.predicted among non-blacks MDRD (S/P/Bld) [Vol rate/Area] 56 mL/min/{1.73_m2} Low >60 [facility] Comment on above: Result Comment: Non- GFR Calc Performed By: #### L 500.4100, L100.0100, L500.2500, L501.9520 ####[facility] [address] [place], [address] Glucose [Mass/Vol] 85 mg/dL Normal 74-106 [facility] Comment on above: Performed By: #### L 500.4100, L100.0100, L500.2500, L501.9520 ####[facility] [address] [place], [address] Potassium [Moles/Vol] 3.8 mmol/L Normal 3.5-5.1 [facility] Comment on above: Performed By: #### L 500.4100, L100.0100, L500.2500, L501.9520 ####[facility] [address] [place], [address] Sodium [Moles/Vol] 138 mmol/L Normal 136-145 [facility] Comment on above: Performed By: #### L 500.4100, L100.0100, L500.2500, L501.9520 ####[facility] [address] [place], [address] Urea nitrogen [Mass/Vol] 23 mg/dL High 7-18 [facility] Comment on above: Performed By: #### L 500.4100, L100.0100, L500.2500, L501.9520 ####[facility] [address] [place], [address] Basophil percentageOrdered B y: Trina Tyler on 12-10-2024 Basophils/100 WBC (Bld) 0.7 % 0-1 [facility] CBC W/Diff, Automatedon 01-2 -2024 Absolute Lymph 0.76 X10 3/uL Low 0.83-4.51 [facility] Comment on above: Performed By: #### L 500.4100, L100.0100, L500.2500, L501.9520 ####[facility] [address] [place], [address] Absolute Neut 5.7 X10 3/uL Normal 2.0-7.7 [facility] Comment on above: Performed By: #### L 500.4100, L100.0100, L500.2500, L501.9520 ####[facility] [address] [place], [address] Basophils/100 WBC (Bld) 0.7 % Normal 0-1 [facility] Comment on above: Performed By: #### L 500.4100, L100.0100, L500.2500, L501.9520 ####[facility] [address] [place], [address] Eosinophils/100 WBC (Bld) 1.5 % Normal 0-5 [facility] Comment on above: Performed By: #### L 500.4100, L100.0100, L500.2500, L501.9520 ####[facility] [address] [place], [address] Erythrocyte distribution width (RBC) [Ratio] 15.3 % High 11.6-14.6 [facility] Comment on above: Performed By: #### L 500.4100, L100.0100, L500.2500, L501.9520 ####[facility] [address] [place], [address] Hematocrit (Bld) [Volume fraction] 37.9 % Normal 37-47 [facility] Comment on above: Performed By: #### L 500.4100, L100.0100, L500.2500, L501.9520 ####[facility] [address] [place], [address] Hemoglobin (Bld) [Mass/Vol] 12.2 g/dL Normal 12.0-15.0 [facility] Comment on above: Performed By: #### L 500.4100, L100.0100, L500.2500, L501.9520 ####[facility] [address] [place], [address] IG% 0.400 Normal 0.0-0.9 [facility] Comment on above: Result Comment: IG% - Immature Granulocytes (promyelocytes, myelocytes andmetamyelocytes) > 1% indicates that a LEFT SHIFT is Present. Performed By: #### L 500.4100, L100.0100, L500.2500, L501.9520 ####[facility] [address] [place], [address] Lymphocytes/100 WBC (Bld) 10.6 % Low 19-41 [facility] Comment on above: Performed By: #### L 500.4100, L100.0100, L500.2500, L501.9520 ####[facility] [address] [place], [address] MCH (RBC) [Entitic mass] 27.0 pg Normal 27.0-32.0 [facility] Comment on above: Performed By: #### L 500.4100, L100.0100, L500.2500, L501.9520 ####[facility] [address] [place], [address] MCHC (RBC) [Mass/Vol] 32.2 g/dL Normal 32-36 [facility] Comment on above: Performed By: #### L 500.4100, L100.0100, L500.2500, L501.9520 ####[facility] [address] [place], [address] MCV (RBC) [Entitic vol] 83.8 fL Normal 81-99 [facility] Comment on above: Performed By: #### L 500.4100, L100.0100, L500.2500, L501.9520 ####[facility] [address] [place], [address] Monocytes/100 WBC (Bld) 7.4 % Normal 0-10 [facility] Comment on above: Performed By: #### L 500.4100, L100.0100, L500.2500, L501.9520 ####[facility] [address] [place], [address] Neutrophils/100 WBC (Bld) 79.4 % High 47-70 [facility] Comment on above: Performed By: #### L 500.4100, L100.0100, L500.2500, L501.9520 ####[facility] [address] [place], [address] Nucleated RBC (Bld) [#/Vol] 0 10*3/uL Normal 0-5 [facility] Comment on above: Performed By: #### L 500.4100, L100.0100, L500.2500, L501.9520 ####[facility] [address] [place], [address] Platelet mean volume (Bld) [Entitic vol] 9.7 fL Normal 6.2-12.0 [facility] Comment on above: Performed By: #### L 500.4100, L100.0100, L500.2500, L501.9520 ####[facility] [address] [place], [address] Platelets (Bld) [#/Vol] 175 10*3/uL Normal 150-450 [facility] Comment on above: Performed By: #### L 500.4100, L100.0100, L500.2500, L501.9520 ####[facility] [address] [place], [address] RBC (Bld) [#/Vol] 4.52 10*6/uL Normal 4.2-5.4 [facility] Comment on above: Performed By: #### L 500.4100, L100.0100, L500.2500, L501.9520 ####[facility] [address] [place], [address] RDW SD 46.5 fl High 35.1-43.9 [facility] Comment on above: Performed By: #### L 500.4100, L100.0100, L500.2500, L501.9520 ####[facility] [address] [place], [address] WBC (Bld) [#/Vol] 7.2 10*3/uL Normal 4.4-11.0 [facility] Comment on above: Performed By: #### L 500.4100, L100.0100, L500.2500, L501.9520 ####[facility] [address] [place], [address] Consultation - Cardiologyon 12-10-2024 Consultation - Cardiology Normal [facility] Eosinophil percentageOrdered By: Trina Tyler on 12-10-2024 Eosinophils/100 WBC (Bld) 1.5 % 0-5 [facility] High density lipoprotein (HD L) measurementOrdered By: Trina Tyler on 12-10-2024 High density lipoprotein (HDL) measurement 49 mg/dL >40 [facility] Immature granulocytes/100 WB C Auto (Bld)Ordered By: Trina Tyler on 12-10-2024 Immature granulocytes/100 WBC (Bld) 0.400 % 0.0-0.9 [facility] Lipid Profileon 12-10-2024 Cholesterol [Mass/Vol] 189 mg/dL Normal 200 [facility] Comment on above: Result Comment: <200 mg/dL Desirable 200-240 mg/dL Borderline >240 mg/dL High Risk Performed By: #### L 500.4100, L100.0100, L500.2500, L501.9520 ####[facility] [address] [place], [address] Cholesterol in HDL [Mass/Vol] 49 mg/dL Normal [facility] Comment on above: Result Comment: The drugs N-Acetylcysteine and Metamizole may falselydepress this assay. Reference Range HDL <40 mg/dL Low HDL Cholesterol HDL >or= 60 mg/dL High HDL Cholesterol Performed By: #### L 500.4100, L100.0100, L500.2500, L501.9520 ####[facility] [address] [place], [address] Cholesterol in LDL [Mass/Vol] 119 mg/dL Normal 0-130 [facility] Comment on above: Performed By: #### L 500.4100, L100.0100, L500.2500, L501.9520 ####[facility] [address] [place], [address] Cholesterol in VLDL [Mass/Vol] 21 mg/dL Normal 5-40 [facility] Comment on above: Performed By: #### L 500.4100, L100.0100, L500.2500, L501.9520 ####[facility] [address] [place], [address] Triglyceride [Mass/Vol] 106 mg/dL Normal [facility] Comment on above: Result Comment: The drugs N-Acetylcysteine and Metamizole may falselydepress this assay.Serum Triglycerides Reference Interval Normal <150 mg/dL Borderline high 150 - 199 mg/dL High 200 - 499 mg/dL Very High > or = 500 mg/dL Performed By: #### L 500.4100, L100.0100, L500.2500, L501.9520 ####[facility] [address] [place], [address] Low density lipoprotein (LDL ) cholesterol measurementOrdered By: Trina Tyler on 12-10-2024 Low density lipoprotein (LDL) cholesterol measurement 119 mg/dL 0-130 [facility] Monocyte percentageOrdered B y: Trina Tyler on 12-10-2024 Monocytes/100 WBC (Bld) 7.4 % 0-10 [facility] Neutrophil percentageOrdered By: Trina Tyler on 12-10-2024 Neutrophils/100 WBC (Bld) 79.4 % High 47-70 [facility] Serum or plasma cholesterol measurement (mass/volume)Ordered By: Trina Tyler on 12-10-2024 Cholesterol [Mass/Vol] 189 mg/dL <200 [facility] Serum or plasma thyroid stim ulating hormone (TSH) measurement (units/volume)Ordered By: Trina Tyler on 12-10-2024 TSH Qn 0.715 uIU/mL 0.358-3.74 0 [facility] Thyroid Stim Hormone (TSH)on 12-10-2024 TSH 0.715 uIU/mL Normal 0.358-3.74 0 [facility] Comment on above: Performed By: #### L 500.4100, L100.0100, L500.2500, L501.9520 ####[facility] [address] [place], [address] Very low density lipoprotein (VLDL) cholesterol measurementOrdered By: Trina Tyler on 12-10-2024 Very low density lipoprotein (VLDL) cholesterol measurement 21 mg/dL 5-40 [facility] 12 Lead EKGon 12-09-2024 12 Lead EKG Normal [facility] 12 Lead EKG Normal [facility] 12 Lead EKG Normal [facility] Basic Metabolic Profile (BMP )on 12-09-2024 BUN/CRE 14.3 RATIO Normal 10-20 [facility] Comment on above: Order Comment: 1Y Performed By: #### L 501.5200, L501.5425, L500.2500, L100.0100 ####[facility] [address] [place], [address] CA,Total 9.8 mg/dL Normal 8.5-10.1 [facility] Comment on above: Order Comment: 1Y Performed By: #### L 501.5200, L501.5425, L500.2500, L100.0100 ####[facility] [address] [place], [address] Chloride [Moles/Vol] 104 mmol/L Normal 98-107 [facility] Comment on above: Order Comment: 1Y Performed By: #### L 501.5200, L501.5425, L500.2500, L100.0100 ####[facility] [address] [place], [address] CO2 [Moles/Vol] 26.0 mmol/L Normal 21.0-32.0 [facility] Comment on above: Order Comment: 1Y Performed By: #### L 501.5200, L501.5425, L500.2500, L100.0100 ####[facility] [address] [place], [address] Creatinine [Mass/Vol] 1.26 mg/dL High 0.55-1.02 [facility] Comment on above: Order Comment: 1Y Result Comment: The validity of the calculated GFR GFRAA in patients over70 years has not been determined. Clinical correlation isessential. Performed By: #### L 501.5200, L501.5425, L500.2500, L100.0100 ####[facility] [address] [place], [address] ECRCL 29.84 ml/min Normal [facility] Comment on above: Order Comment: 1Y Performed By: #### L 501.5200, L501.5425, L500.2500, L100.0100 ####[facility] [address] [place], [address] EST GFR - AA 54 mL/min Low >60 [facility] Comment on above: Order Comment: 1Y Result Comment: Afri can [place] GFR Calc Performed By: #### L 501.5200, L501.5425, L500.2500, L100.0100 ####[facility] [address] [place], [address] GAP 8 Normal 5-15 [facility] Comment on above: Order Comment: 1Y Performed By: #### L 501.5200, L501.5425, L500.2500, L100.0100 ####[facility] [address] [place], [address] GFR/1.73 sq M.predicted among non-blacks MDRD (S/P/Bld) [Vol rate/Area] 45 mL/min/{1.73_m2} Low >60 [facility] Comment on above: Order Comment: 1Y Result Comment: Non- GFR Calc Performed By: #### L 501.5200, L501.5425, L500.2500, L100.0100 ####[facility] [address] [place], [address] Glucose [Mass/Vol] 118 mg/dL High 74-106 [facility] Comment on above: Order Comment: 1Y Result Comment: Fast ing Glucose result from 100 to 125 mg/dLsuggests IMPAIRED HOMEOSTASIS per A.D.A. criteria. Performed By: #### L 501.5200, L501.5425, L500.2500, L100.0100 ####[facility] [address] [place], [address] Potassium [Moles/Vol] 3.8 mmol/L Normal 3.5-5.1 [facility] Comment on above: Order Comment: 1Y Performed By: #### L 501.5200, L501.5425, L500.2500, L100.0100 ####[facility] [address] [place], [address] Sodium [Moles/Vol] 138 mmol/L Normal 136-145 [facility] Comment on above: Order Comment: 1Y Performed By: #### L 501.5200, L501.5425, L500.2500, L100.0100 ####[facility] [address] [place], [address] Urea nitrogen [Mass/Vol] 18 mg/dL Normal 7-18 [facility] Comment on above: Order Comment: 1Y Performed By: #### L 501.5200, L501.5425, L500.2500, L100.0100 ####[facility] [address] [place], [address] Brain/Head without Contrasto n 12-09-2024 Brain/Head without Contrast Normal [facility] CBC W/Diff, Automatedon 11-20 Absolute Lymph 0.84 X10 3/uL Normal 0.83-4.51 [facility] Comment on above: Performed By: #### L 501.5200, L501.5425, L500.2500, L100.0100 ####[facility] [address] [place], [address] Absolute Neut 7.9 X10 3/uL High 2.0-7.7 [facility] Comment on above: Performed By: #### L 501.5200, L501.5425, L500.2500, L100.0100 ####[facility] [address] [place], [address] Basophils/100 WBC (Bld) 0.6 % Normal 0-1 [facility] Comment on above: Performed By: #### L 501.5200, L501.5425, L500.2500, L100.0100 ####[facility] [address] [place], [address] Eosinophils/100 WBC (Bld) 1.1 % Normal 0-5 [facility] Comment on above: Performed By: #### L 501.5200, L501.5425, L500.2500, L100.0100 ####[facility] [address] [place], [address] Erythrocyte distribution width (RBC) [Ratio] 15.7 % High 11.6-14.6 [facility] Comment on above: Performed By: #### L 501.5200, L501.5425, L500.2500, L100.0100 ####[facility] [address] [place], [address] Hematocrit (Bld) [Volume fraction] 41.9 % Normal 37-47 [facility] Comment on above: Performed By: #### L 501.5200, L501.5425, L500.2500, L100.0100 ####[facility] [address] [place], [address] Hemoglobin (Bld) [Mass/Vol] 13.5 g/dL Normal 12.0-15.0 [facility] Comment on above: Performed By: #### L 501.5200, L501.5425, L500.2500, L100.0100 ####[facility] [address] [place], [address] IG% 0.600 Normal 0.0-0.9 [facility] Comment on above: Result Comment: IG% - Immature Granulocytes (promyelocytes, myelocytes andmetamyelocytes) > 1% indicates that a LEFT SHIFT is Present. Performed By: #### L 501.5200, L501.5425, L500.2500, L100.0100 ####[facility] [address] [place], [address] Lymphocytes/100 WBC (Bld) 8.7 % Low 19-41 [facility] Comment on above: Performed By: #### L 501.5200, L501.5425, L500.2500, L100.0100 ####[facility] [address] [place], [address] MCH (RBC) [Entitic mass] 27.2 pg Normal 27.0-32.0 [facility] Comment on above: Performed By: #### L 501.5200, L501.5425, L500.2500, L100.0100 ####[facility] [address] [place], [address] MCHC (RBC) [Mass/Vol] 32.2 g/dL Normal 32-36 [facility] Comment on above: Performed By: #### L 501.5200, L501.5425, L500.2500, L100.0100 ####[facility] [address] [place], [address] MCV (RBC) [Entitic vol] 84.3 fL Normal 81-99 [facility] Comment on above: Performed By: #### L 501.5200, L501.5425, L500.2500, L100.0100 ####[facility] [address] [place], [address] Monocytes/100 WBC (Bld) 6.8 % Normal 0-10 [facility] Comment on above: Performed By: #### L 501.5200, L501.5425, L500.2500, L100.0100 ####[facility] [address] [place], [address] Neutrophils/100 WBC (Bld) 82.2 % High 47-70 [facility] Comment on above: Performed By: #### L 501.5200, L501.5425, L500.2500, L100.0100 ####[facility] [address] [place], [address] Nucleated RBC (Bld) [#/Vol] 0 10*3/uL Normal 0-5 [facility] Comment on above: Performed By: #### L 501.5200, L501.5425, L500.2500, L100.0100 ####[facility] [address] [place], [address] Platelet mean volume (Bld) [Entitic vol] 10.2 fL Normal 6.2-12.0 [facility] Comment on above: Performed By: #### L 501.5200, L501.5425, L500.2500, L100.0100 ####[facility] [address] [place], [address] Platelets (Bld) [#/Vol] 191 10*3/uL Normal 150-450 [facility] Comment on above: Performed By: #### L 501.5200, L501.5425, L500.2500, L100.0100 ####[facility] [address] [place], [address] RBC (Bld) [#/Vol] 4.97 10*6/uL Normal 4.2-5.4 [facility] Comment on above: Performed By: #### L 501.5200, L501.5425, L500.2500, L100.0100 ####[facility] [address] [place], [address] RDW SD 48.3 fl High 35.1-43.9 [facility] Comment on above: Performed By: #### L 501.5200, L501.5425, L500.2500, L100.0100 ####[facility] [address] [place], [address] WBC (Bld) [#/Vol] 9.6 10*3/uL Normal 4.4-11.0 [facility] Comment on above: Performed By: #### L 501.5200, L501.5425, L500.2500, L100.0100 ####[facility] [address] [place], [address] Chest 1 View (Portable)on Chest 1 View (Portable) Normal [facility] Echo Complete W/ Contraston 12-09-2024 Echo Complete W/ Contrast Normal [facility] Emergency Department Summary on 12-09-2024 Emergency Department Summary Normal [facility] H AND P Exam - Hospitaliston 12-09-2024 H&P Exam - Hospitalist Normal [facility] L501.4020on 12-09-2024 TROPONIN-I HS 72 pg/mL High 3.0-54.0 [facility] Comment on above: Order Comment: 'TROP ' Serial specimen #1, #2 or #3: 3 Result Comment: Plea se Note: New Test Units and Gender Specific Reference Ranges. For more information see Policy Stat Procedure [place] High Sensitivity Troponin (TNIH) and attachments. Performed By: #### L 501.4020 ####[facility] [address] [place], [address] TROPONIN-I HS 74 pg/mL High 3.0-54.0 [facility] Comment on above: Result Comment: Plea se Note: New Test Units and Gender Specific Reference Ranges. For more information see Policy Stat Procedure [place] High Sensitivity Troponin (TNIH) and attachments. Performed By: #### L 501.4020 ####[facility] [address] [place], [address] L501.5425on 12-09-2024 TROPONIN-I HS 91 pg/mL High 3.0-54.0 [facility] Comment on above: Order Comment: 1Y Result Comment: Plea se Note: New Test Units and Gender Specific Reference Ranges. For more information see Policy Stat Procedure [place] High Sensitivity Troponin (TNIH) and attachments. Performed By: #### L 501.5200, L501.5425, L500.2500, L100.0100 ####[facility] [address] [place], [address] Magnesiumon 12-09-2024 Magnesium [Mass/Vol] 2.3 mg/dL Normal 1.6-2.6 [facility] Comment on above: Order Comment: 1Y Performed By: #### L 501.5200, L501.5425, L500.2500, L100.0100 ####[facility] [address] [place], [address] Magnesium measurementOrdered By: Nuno Grider on 12-09-2024 Magnesium [Mass/Vol] 2.3 mg/dL 1.6-2.6 [facility] Troponin IOrdered By: Trina Tyler on 12-09-2024 Troponin I 72 pg/mL High 3.0-54.0 [facility] 12 Lead EKGon 11-28-2024 12 Lead EKG Normal [facility] Basic Metabolic Profile (BMP )on 11-28-2024 BUN/CRE 14.9 RATIO Normal 10-20 [facility] Comment on above: Performed By: #### L 300.8000, L100.0100, L500.2500 ####[facility] [address] [place], [address] CA,Total 9.5 mg/dL Normal 8.5-10.1 [facility] Comment on above: Performed By: #### L 300.8000, L100.0100, L500.2500 ####[facility] [address] [place], [address] Chloride [Moles/Vol] 105 mmol/L Normal 98-107 [facility] Comment on above: Performed By: #### L 300.8000, L100.0100, L500.2500 ####[facility] [address] [place], [address] CO2 [Moles/Vol] 26.0 mmol/L Normal 21.0-32.0 [facility] Comment on above: Performed By: #### L 300.8000, L100.0100, L500.2500 ####[facility] [address] [place], [address] Creatinine [Mass/Vol] 1.14 mg/dL High 0.55-1.02 [facility] Comment on above: Result Comment: The validity of the calculated GFR GFRAA in patients over70 years has not been determined. Clinical correlation isessential. Performed By: #### L 300.8000, L100.0100, L500.2500 ####[facility] [address] [place], [address] ECRCL 39.22 ml/min Normal [facility] Comment on above: Performed By: #### L 300.8000, L100.0100, L500.2500 ####[facility] [address] [place], [address] EST GFR - AA 61 mL/min Normal >60 [facility] Comment on above: Result Comment: Afri can [place] GFR Calc Performed By: #### L 300.8000, L100.0100, L500.2500 ####[facility] [address] [place], [address] GAP 7 Normal 5-15 [facility] Comment on above: Performed By: #### L 300.8000, L100.0100, L500.2500 ####[facility] [address] [place], [address] GFR/1.73 sq M.predicted among non-blacks MDRD (S/P/Bld) [Vol rate/Area] 50 mL/min/{1.73_m2} Low >60 [facility] Comment on above: Result Comment: Non- GFR Calc Performed By: #### L 300.8000, L100.0100, L500.2500 ####[facility] [address] [place], [address] Glucose [Mass/Vol] 107 mg/dL High 74-106 [facility] Comment on above: Result Comment: Fast ing Glucose result from 100 to 125 mg/dLsuggests IMPAIRED HOMEOSTASIS per A.D.A. criteria. Performed By: #### L 300.8000, L100.0100, L500.2500 ####[facility] [address] [place], [address] Potassium [Moles/Vol] 3.2 mmol/L Low 3.5-5.1 [facility] Comment on above: Performed By: #### L 300.8000, L100.0100, L500.2500 ####[facility] [address] [place], [address] Sodium [Moles/Vol] 138 mmol/L Normal 136-145 [facility] Comment on above: Performed By: #### L 300.8000, L100.0100, L500.2500 ####[facility] [address] [place], [address] Urea nitrogen [Mass/Vol] 17 mg/dL Normal 7-18 [facility] Comment on above: Performed By: #### L 300.8000, L100.0100, L500.2500 ####[facility] [address] [place], [address] Brain/Head without Contrasto n 11-28-2024 Brain/Head without Contrast Normal [facility] CBC W/Diff, Automatedon 01- 0-2024 Absolute Lymph 2.10 X10 3/uL Normal 0.83-4.51 [facility] Comment on above: Performed By: #### L 300.8000, L100.0100, L500.2500 ####[facility] [address] [place], [address] Absolute Neut 5.8 X10 3/uL Normal 2.0-7.7 [facility] Comment on above: Performed By: #### L 300.8000, L100.0100, L500.2500 ####[facility] [address] [place], [address] Basophils/100 WBC (Bld) 0.8 % Normal 0-1 [facility] Comment on above: Performed By: #### L 300.8000, L100.0100, L500.2500 ####[facility] [address] [place], [address] Eosinophils/100 WBC (Bld) 2.3 % Normal 0-5 [facility] Comment on above: Performed By: #### L 300.8000, L100.0100, L500.2500 ####[facility] [address] [place], [address] Erythrocyte distribution width (RBC) [Ratio] 15.8 % High 11.6-14.6 [facility] Comment on above: Performed By: #### L 300.8000, L100.0100, L500.2500 ####[facility] [address] [place], [address] Hematocrit (Bld) [Volume fraction] 40.3 % Normal 37-47 [facility] Comment on above: Performed By: #### L 300.8000, L100.0100, L500.2500 ####[facility] [address] [place], [address] Hemoglobin (Bld) [Mass/Vol] 13.1 g/dL Normal 12.0-15.0 [facility] Comment on above: Performed By: #### L 300.8000, L100.0100, L500.2500 ####[facility] [address] [place], [address] IG% 0.400 Normal 0.0-0.9 [facility] Comment on above: Result Comment: IG% - Immature Granulocytes (promyelocytes, myelocytes andmetamyelocytes) > 1% indicates that a LEFT SHIFT is Present. Performed By: #### L 300.8000, L100.0100, L500.2500 ####[facility] [address] [place], [address] Lymphocytes/100 WBC (Bld) 23.0 % Normal 19-41 [facility] Comment on above: Performed By: #### L 300.8000, L100.0100, L500.2500 ####[facility] [address] [place], [address] MCH (RBC) [Entitic mass] 27.1 pg Normal 27.0-32.0 [facility] Comment on above: Performed By: #### L 300.8000, L100.0100, L500.2500 ####[facility] [address] [place], [address] MCHC (RBC) [Mass/Vol] 32.5 g/dL Normal 32-36 [facility] Comment on above: Performed By: #### L 300.8000, L100.0100, L500.2500 ####[facility] [address] [place], [address] MCV (RBC) [Entitic vol] 83.4 fL Normal 81-99 [facility] Comment on above: Performed By: #### L 300.8000, L100.0100, L500.2500 ####[facility] [address] [place], [address] Monocytes/100 WBC (Bld) 10.2 % High 0-10 [facility] Comment on above: Performed By: #### L 300.8000, L100.0100, L500.2500 ####[facility] [address] [place], [address] Neutrophils/100 WBC (Bld) 63.3 % Normal 47-70 [facility] Comment on above: Performed By: #### L 300.8000, L100.0100, L500.2500 ####[facility] [address] [place], [address] Nucleated RBC (Bld) [#/Vol] 0 10*3/uL Normal 0-5 [facility] Comment on above: Performed By: #### L 300.8000, L100.0100, L500.2500 ####[facility] [address] [place], [place], [address] Platelet mean volume (Bld) [Entitic vol] 10.2 fL Normal 6.2-12.0 [facility] Comment on above: Performed By: #### L 300.8000, L100.0100, L500.2500 ####[facility] [address] [place], [address] Platelets (Bld) [#/Vol] 204 10*3/uL Normal 150-450 [facility] Comment on above: Performed By: #### L 300.8000, L100.0100, L500.2500 ####[facility] [address] [place], [address] RBC (Bld) [#/Vol] 4.83 10*6/uL Normal 4.2-5.4 [facility] Comment on above: Performed By: #### L 300.8000, L100.0100, L500.2500 ####[facility] [address] [place], [address] RDW SD 47.8 fl High 35.1-43.9 [facility] Comment on above: Performed By: #### L 300.8000, L100.0100, L500.2500 ####[facility] [address] [place], [address] WBC (Bld) [#/Vol] 9.1 10*3/uL Normal 4.4-11.0 [facility] Comment on above: Performed By: #### L 300.8000, L100.0100, L500.2500 ####[facility] [address] [place], [address] D-Dimer Quantitative (DVT/PE )on 11-28-2024 D-DIMER QUANT 0.40 FEU/ug/m Normal 0.27-0.49 [facility] Comment on above: Result Comment: NORM AL D-Dimer level (<0.50) indicates no DVT or PE. Performed By: #### L 300.8000, L100.0100, L500.2500 ####[facility] [address] [place], [address] Emergency Department Summary on 11-28-2024 Emergency Department Summary Normal [facility] Cardiology Visit Reporton Cardiology Visit Report Normal [facility] 36on 11-20-2024 36 Patient called [...] tab): 09/15/24 Updated/Validated preferred pharmacy: [id number] Patient instructed to contact the pharmacy prior to picking up the medication: Yes Normal [facility] 36 Last ov-12/14/23 Next ov- N/A [facility] Pulmonary Visit Reporton Pulmonary Visit Report Normal [facility] 6 Minute Walk Teston 024 6 Minute Walk Test Normal [facility] Low Dose CT Lung Screeningon 10-03-[address] Lung Screening [facility] 36on 09-15-2024 36 patient has been not ified of providers message. She will call back to schedule the appointment Normal [facility] 36 Refill for baclofen sent. Patient needs to schedule a follow up; in November it will be one year since she has last see. Normal [facility] 36 Last ov- 12/14/23 Next ov- n/a [facility] Absolute lymphocyte countOrd ered By: Daron Benton on 02-29-2024 Lymphocytes Auto (Unsp spec) [#/Vol] 1.00 10*3/uL 0.83-4.51 [facility] Automated lymphocyte count a s percentage of total leukocytesOrdered By: Daron Benton on 02-29-2024 Lymphocytes/100 WBC Auto (Unsp spec) 20.5 % 19-41 [facility] Basophil percentageOrdered B y: Daron Benton on 02-29-2024 Basophil percentage 10.4 g/dL 12.0-15.0 [facility] Basophil percentage 72 mg/dL 74-106 [facility] Basophil percentage 6.4 g/dL 6.4-8.2 [facility] Basophil percentage 0.30 mg/dL 0.20-1.00 [facility] Basophil percentage 139 mmol/L 136-145 [facility] Basophil percentage 3.9 mmol/L 3.5-5.1 [facility] Basophil percentage 105 mmol/L 98-107 [facility] Basophils (Bld) [#/Vol] 4.9 10*3/uL 4.4-11.0 [facility] Basophils (Bld) [#/Vol] 3.1 10*3/uL 2.0-7.7 [facility] Basophils/100 WBC (Bld) 63.6 % 47-70 [facility] Basophils/100 WBC (Bld) 8.8 % 0-10 [facility] Basophils/100 WBC (Bld) 5.1 % 0-5 [facility] Basophils/100 WBC (Bld) 1.4 % 0-1 [facility] Blood manual differential co mment interpretation (narrative result)Ordered By: Daron Benton on 02-29-2024 Manual differential comment Jimy (Bld) [Interp] SCANNED [facility] Determination of erythrocyte mean corpuscular volume (MCV)Ordered By: Daron Benton on 02-29-2024 MCV (RBC) [Entitic vol] 84.6 fL 81-99 [facility] Erythrocyte distribution wid th ratioOrdered By: Daron Benton on 02-29-2024 Erythrocyte distribution width (RBC) [Ratio] 20.3 % 11.6-14.6 [facility] Erythrocyte distribution wid th standard deviationOrdered By: Daron Benton on 02-29-2024 Erythrocyte distribution width (RBC) [Entitic vol] 62.6 fL 35.1-43.9 [facility] Hematocrit Auto (Bld) [Volum e fraction]Ordered By: Daron Benton on 02-29-2024 Hematocrit (Bld) [Volume fraction] 35.7 % 37-47 [facility] Hemoglobin in reticulocytes (mass per reticulocyte)Ordered By: Daron Benton on 02-29-2024 Hemoglobin (Reticulocytes) [Entitic mass] 30.1 pg 30-35 [facility] Immature granulocytes/100 WB C Auto (Bld)Ordered By: Daron Benton on 02-29-2024 Immature granulocytes/100 WBC (Bld) 0.600 % 0.0-0.9 [facility] No Panel InformationOrdered By: Daron Benton on 02-29-2024 24.6 pg 27.0-32.0 [facility] 29.1 g/dL 32-36 [facility] 211 K/mm3 150-450 [facility] 10.0 fl 6.2-12.0 [facility] 0 % 0-5 [facility] 12.20 % 3.00-15.90 [facility] 63 mL/min >60 [facility] 76 mL/min >60 [facility] 13.8 RATIO 10-20 [facility] 3.5 g/dL 2.2-4.2 [facility] 0.8 RATIO 0.9-2.4 [facility] 134 U/L 45-117 [facility] 13 U/L 13-56 [facility] 31.0 mmol/L 21.0-32.0 [facility] 386 pg/mL 211-911 [facility] 292 ng/mL 8-252 [facility] 8.20 ng/mL 3.1-55.4 [facility] RBC Auto (Bld) [#/Vol]Ordere d By: Daron Benton on 02-29-2024 RBC (Bld) [#/Vol] 4.22 10*6/uL 4.2-5.4 [facility] Reticulocytes Auto (Bld) [#/ Vol]Ordered By: Daron Benton on 02-29-2024 Reticulocytes/100 RBC (Bld) 1.50 % 0.5-1.5 [facility] Serum or plasma calcium stefania urement (mass/volume)Ordered By: Daron Benton on 02-29-2024 Calcium [Mass/Vol] 8.8 mg/dL 8.5-10.1 [facility] Serum or plasma creatinine m easurement (mass/volume)Ordered By: Daron Benton on 02-29-2024 Creatinine [Mass/Vol] 0.94 mg/dL 0.55-1.02 [facility] Serum or plasma urea nitroge n measurement (mass/volume)Ordered By: Daron Benton on 02-29-2024 Urea nitrogen [Mass/Vol] 13 mg/dL 7-18 [facility] Thin prep Papanicolaou smear with manual screeningOrdered By: Daron Benton on 02-29-2024 Thin prep Papanicolaou smear with manual screening 2.9 g/dL 3.2-5.0 [facility] Thin prep Papanicolaou smear with manual screening 15 U/L 15-37 [facility] Thin prep Papanicolaou smear with manual screening 3 5-15 [facility] Absolute lymphocyte countOrd ered By: Roman Mckeon on 02-25-2024 Lymphocytes Auto (Unsp spec) [#/Vol] 1.08 10*3/uL 0.83-4.51 [facility] Activated partial thrombopla stin time (aPTT) in platelet poor plasma by coagulation aOrdered By: Daron Cortes on 02-25-2024 aPTT Coag (PPP) [Time] 33.2 s 24.1-36.2 [facility] Automated lymphocyte count a s percentage of total leukocytesOrdered By: Roman Mckeon on 02-25-2024 Lymphocytes/100 WBC Auto (Unsp spec) 16.3 % 19-41 [facility] Basophil percentageOrdered B y: Eva Mortensen on 02-25-2024 Basophil percentage 10.7 g/dL 12.0-15.0 [facility] Basophil percentageOrdered B y: Roman Mckeon on 02-25-2024 Basophil percentage 85 mg/dL 74-106 [facility] Basophil percentage 141 mmol/L 136-145 [facility] Basophil percentage 3.8 mmol/L 3.5-5.1 [facility] Basophil percentage 110 mmol/L 98-107 [facility] Basophils (Bld) [#/Vol] 6.6 10*3/uL 4.4-11.0 [facility] Basophils (Bld) [#/Vol] 4.6 10*3/uL 2.0-7.7 [facility] Basophils/100 WBC (Bld) 68.4 % 47-70 [facility] Basophils/100 WBC (Bld) 11.3 % 0-10 [facility] Basophils/100 WBC (Bld) 2.9 % 0-5 [facility] Basophils/100 WBC (Bld) 0.5 % 0-1 [facility] Determination of erythrocyte mean corpuscular volume (MCV)Ordered By: Roman Mckeon on 02-25-2024 MCV (RBC) [Entitic vol] 83.5 fL 81-99 [facility] Erythrocyte distribution wid th ratioOrdered By: Roman Mckeon on 02-25-2024 Erythrocyte distribution width (RBC) [Ratio] 19.6 % 11.6-14.6 [facility] Erythrocyte distribution wid th standard deviationOrdered By: Roman Mckeon on 02-25-2024 Erythrocyte distribution width (RBC) [Entitic vol] 57.3 fL 35.1-43.9 [facility] Hematocrit Auto (Bld) [Volum e fraction]Ordered By: Roman Mckeon on 02-25-2024 Hematocrit (Bld) [Volume fraction] 34.3 % 37-47 [facility] Immature granulocytes/100 WB C Auto (Bld)Ordered By: Roman Mckeon on 02-25-2024 Immature granulocytes/100 WBC (Bld) 0.600 % 0.0-0.9 [facility] No Panel InformationOrdered By: Roman Mckeon on 02-25-2024 25.1 pg 27.0-32.0 [facility] 30.0 g/dL 32-36 [facility] 205 K/mm3 150-450 [facility] 9.6 fl 6.2-12.0 [facility] 0 % 0-5 [facility] 70 mL/min >60 [facility] 85 mL/min >60 [facility] 55.02 ml/min [facility] 14.1 RATIO 10-20 [facility] 26.0 mmol/L 21.0-32.0 [facility] No Panel InformationOrdered By: Daron Cortes on 02-25-2024 13.8 SECONDS 11.7-14.9 [facility] 1.1 [facility] RBC Auto (Bld) [#/Vol]Ordere d By: Roman Mckeon on 02-25-2024 RBC (Bld) [#/Vol] 4.11 10*6/uL 4.2-5.4 [facility] Serum or plasma calcium stefania urement (mass/volume)Ordered By: Roman Mckeon on 02-25-2024 Calcium [Mass/Vol] 8.5 mg/dL 8.5-10.1 [facility] Serum or plasma creatinine m easurement (mass/volume)Ordered By: Roman Mckeon on 02-25-2024 Creatinine [Mass/Vol] 0.85 mg/dL 0.55-1.02 [facility] Serum or plasma thyroid stim ulating hormone (TSH) measurement (units/volume)Ordered By: Daron Cortes on 02-25-2024 TSH Qn 3.07 uIU/mL 0.358-3.74 [facility] Serum or plasma urea nitroge n measurement (mass/volume)Ordered By: Roman Mckeon on 02-25-2024 Urea nitrogen [Mass/Vol] 12 mg/dL 7-18 [facility] Thin prep Papanicolaou smear with manual screeningOrdered By: Roman Mckeon on 02-25-2024 Thin prep Papanicolaou smear with manual screening 5 5-15 [facility] Basophil percentageOrdered B y: Roman Mckeon on 02-23-2024 Basophil percentage 2.6 mg/dL 2.5-4.9 [facility] No Panel InformationOrdered By: Roman Mckeon on 02-23-2024 28 pg/mL 3.0-54.0 [facility] 2.0 mg/dL 1.6-2.6 [facility] Bacteria identified Respirat ory culture Nom (Unsp spec)Ordered By: Roman Mckeon on 02-22-2024 Microbial respiratory culture Presumptive C albicans [facility] Basophil percentageOrdered B y: Roman Mckeon on 02-22-2024 Basophil percentage 5.2 g/dL 6.4-8.2 [facility] Basophil percentage 0.20 mg/dL 0.20-1.00 [facility] Gram stain for investigation of transfusion reactionOrdered By: Roman Mckeon on 02-22-2024 Microscopic observation Gram stain Nom (Unsp spec) [facility] No Panel InformationOrdered By: Roman Mckeon on 02-22-2024 3.0 g/dL 2.2-4.2 [facility] 0.7 RATIO 0.9-2.4 [facility] 133 U/L 45-117 [facility] 8 U/L 13-56 [facility] Thin prep Papanicolaou smear with manual screeningOrdered By: Roman Mckeon on 02-22-2024 Thin prep Papanicolaou smear with manual screening 2.2 g/dL 3.2-5.0 [facility] Thin prep Papanicolaou smear with manual screening 9 U/L 15-37 [facility] Absolute lymphocyte countOrd ered By: Jeffy Willoughby on 02-19-2024 Lymphocytes Auto (Unsp spec) [#/Vol] 1.17 10*3/uL 0.83-4.51 [facility] Automated lymphocyte count a s percentage of total leukocytesOrdered By: Jeffy Willoughby on 02-19-2024 Lymphocytes/100 WBC Auto (Unsp spec) 14.5 % 19-41 [facility] Basophil percentageOrdered B y: Jeffy Willoughby on 02-19-2024 Basophil percentage 1.0 mmol/L 0.4-2.0 [facility] Basophil percentage 6.6 g/dL 12.0-15.0 [facility] Basophil percentage 128 mg/dL 74-106 [facility] Basophil percentage 137 mmol/L 136-145 [facility] Basophil percentage 3.8 mmol/L 3.5-5.1 [facility] Basophil percentage 106 mmol/L 98-107 [facility] Basophils (Bld) [#/Vol] 8.1 10*3/uL 4.4-11.0 [facility] Basophils (Bld) [#/Vol] 5.9 10*3/uL 2.0-7.7 [facility] Basophils/100 WBC (Bld) 73.5 % 47-70 [facility] Basophils/100 WBC (Bld) 8.5 % 0-10 [facility] Basophils/100 WBC (Bld) 2.6 % 0-5 [facility] Basophils/100 WBC (Bld) 0.4 % 0-1 [facility] Determination of erythrocyte mean corpuscular volume (MCV)Ordered By: Jeffy Willoughby on 02-19-2024 MCV (RBC) [Entitic vol] 77.2 fL 81-99 [facility] Erythrocyte distribution wid th ratioOrdered By: Jeffy Willoughby on 02-19-2024 Erythrocyte distribution width (RBC) [Ratio] 17.1 % 11.6-14.6 [facility] Erythrocyte distribution wid th standard deviationOrdered By: Jeffyaura Willoughby on 02-19-2024 Erythrocyte distribution width (RBC) [Entitic vol] 48.0 fL 35.1-43.9 [facility] Hematocrit Auto (Bld) [Volum e fraction]Ordered By: Jeffy Willoughby on 02-19-2024 Hematocrit (Bld) [Volume fraction] 22.4 % 37-47 [facility] Immature granulocytes/100 WB C Auto (Bld)Ordered By: Jeffy Willoughby on 02-19-2024 Immature granulocytes/100 WBC (Bld) 0.500 % 0.0-0.9 [facility] Lower GI hemoglobin IA Ql (S tl)Ordered By: Jeffyaura Willoughby on 02-19-2024 Stool gastrointestinal hemoglobin detection by immunologic method Positive [facility] No Panel InformationOrdered By: Jeffyaura Willoughby on 02-19-2024 15 pg/mL 3.0-54.0 [facility] No growth in 5 days. [facility] 22.8 pg 27.0-32.0 [facility] 29.5 g/dL 32-36 [facility] 193 K/mm3 150-450 [facility] 10.0 fl 6.2-12.0 [facility] 0 % 0-5 [facility] 58 mL/min >60 [facility] 71 mL/min >60 [facility] 49.70 ml/min [facility] 21.0 RATIO 10-20 [facility] 25.0 mmol/L 21.0-32.0 [facility] RBC Auto (Bld) [#/Vol]Ordere d By: Jeffy Willoughby on 02-19-2024 RBC (Bld) [#/Vol] 2.90 10*6/uL 4.2-5.4 [facility] Serum or plasma calcium stefania urement (mass/volume)Ordered By: Jeffy Willoughby on 02-19-2024 Calcium [Mass/Vol] 8.3 mg/dL 8.5-10.1 [facility] Serum or plasma creatinine m easurement (mass/volume)Ordered By: Jeffyaura Willoughby on 02-19-2024 Creatinine [Mass/Vol] 1.00 mg/dL 0.55-1.02 [facility] Serum or plasma urea nitroge n measurement (mass/volume)Ordered By: [facility] 02-19-[facility]24 Urea nitrogen [Mass/Vol] 21 mg/dL 7-18 [facility] Thin prep Papanicolaou smear with manual screeningOrdered By: Jeffyaura Willoughby on 02-19-2024 Thin prep Papanicolaou smear with manual screening 128 mg/dL 74-106 [facility] Thin prep Papanicolaou smear with manual screening 6 5-15 [facility] Urine Legionella pneumophila antigen detectionOrdered By: Roman Mckeon on 02-19-2024 L. pneumophila Ag Ql (U) [facility] Absolute lymphocyte countOrd ered By: Daron Benton on 01-18-2024 Lymphocytes Auto (Unsp spec) [#/Vol] 1.27 10*3/uL 0.83-4.51 [facility] Automated lymphocyte count a s percentage of total leukocytesOrdered By: Daron Benton on 01-18-2024 Lymphocytes/100 WBC Auto (Unsp spec) 11.7 % 19-41 [facility] Basophil percentageOrdered B y: Daron Benton on 01-18-2024 Basophil percentage 8.9 g/dL 12.0-15.0 [facility] Basophil percentage 96 mg/dL 74-106 [facility] Basophil percentage 6.8 g/dL 6.4-8.2 [facility] Basophil percentage 0.40 mg/dL 0.20-1.00 [facility] Basophil percentage 139 mmol/L 136-145 [facility] Basophil percentage 4.1 mmol/L 3.5-5.1 [facility] Basophil percentage 106 mmol/L 98-107 [facility] Basophils (Bld) [#/Vol] 10.9 10*3/uL 4.4-11.0 [facility] Basophils (Bld) [#/Vol] 8.1 10*3/uL 2.0-7.7 [facility] Basophils/100 WBC (Bld) 74.9 % 47-70 [facility] Basophils/100 WBC (Bld) 8.6 % 0-10 [facility] Basophils/100 WBC (Bld) 2.0 % 0-5 [facility] Basophils/100 WBC (Bld) 0.8 % 0-1 [facility] Determination of erythrocyte mean corpuscular volume (MCV)Ordered By: Daron Benton on 01-18-2024 MCV (RBC) [Entitic vol] 88.1 fL 81-99 [facility] Erythrocyte distribution wid th ratioOrdered By: Daron Benton on 01-18-2024 Erythrocyte distribution width (RBC) [Ratio] 16.0 % 11.6-14.6 [facility] Erythrocyte distribution wid th standard deviationOrdered By: Daron Benton on 01-18-2024 Erythrocyte distribution width (RBC) [Entitic vol] 51.1 fL 35.1-43.9 [facility] Hematocrit Auto (Bld) [Volum e fraction]Ordered By: Daron Benton on 01-18-2024 Hematocrit (Bld) [Volume fraction] 30.4 % 37-47 [facility] Hemoglobin in reticulocytes (mass per reticulocyte)Ordered By: Daron Benton on 01-18-2024 Hemoglobin (Reticulocytes) [Entitic mass] 25.6 pg 30-35 [facility] Immature granulocytes/100 WB C Auto (Bld)Ordered By: Daron Benton on 01-18-2024 Immature granulocytes/100 WBC (Bld) 2.000 % 0.0-0.9 [facility] No Panel InformationOrdered By: Daron Benton on 01-18-2024 25.8 pg 27.0-32.0 [facility] 29.3 g/dL 32-36 [facility] 449 K/mm3 150-450 [facility] 9.0 fl 6.2-12.0 [facility] 0 % 0-5 [facility] 34.00 % 3.00-15.90 [facility] 55 mL/min >60 [facility] 66 mL/min >60 [facility] 18.9 RATIO 10-20 [facility] 4.0 g/dL 2.2-4.2 [facility] 0.7 RATIO 0.9-2.4 [facility] 161 U/L 45-117 [facility] 13 U/L 13-56 [facility] 28.0 mmol/L 21.0-32.0 [facility] 2.2 pg/mL 2.18-3.98 [facility] 808 pg/mL 211-911 [facility] 82 ng/mL 8-252 [facility] 9.40 ng/mL 3.1-55.4 [facility] RBC Auto (Bld) [#/Vol]Ordere d By: Daron Benton on 01-18-2024 RBC (Bld) [#/Vol] 3.45 10*6/uL 4.2-5.4 [facility] Reticulocytes Auto (Bld) [#/ Vol]Ordered By: Daron Benton on 01-18-2024 Reticulocytes/100 RBC (Bld) 3.70 % 0.5-1.5 [facility] Serum or plasma calcium stefania urement (mass/volume)Ordered By: Daron Benton on 01-18-2024 Calcium [Mass/Vol] 8.7 mg/dL 8.5-10.1 [facility] Serum or plasma creatinine m easurement (mass/volume)Ordered By: Daron Benton on 01-18-2024 Creatinine [Mass/Vol] 1.06 mg/dL 0.55-1.02 [facility] Serum or plasma thyroid stim ulating hormone (TSH) measurement (units/volume)Ordered By: Daron Benton on 01-18-2024 TSH Qn 3.92 uIU/mL 0.358-3.74 [facility] Serum or plasma urea nitroge n measurement (mass/volume)Ordered By: Daron Benton on 01-18-2024 Urea nitrogen [Mass/Vol] 20 mg/dL 7-18 [facility] Thin prep Papanicolaou smear with manual screeningOrdered By: Daron Benton on 01-18-2024 Thin prep Papanicolaou smear with manual screening 2.8 g/dL 3.2-5.0 [facility] Thin prep Papanicolaou smear with manual screening 12 U/L 15-37 [facility] Thin prep Papanicolaou smear with manual screening 5 5-15 [facility] Thin prep Papanicolaou smear with manual screening 1.39 ng/dL 0.76-1.46 [facility] Absolute lymphocyte countOrd ered By: Jori Garcia on 01-11-2024 Lymphocytes Auto (Unsp spec) [#/Vol] 0.76 10*3/uL 0.83-4.51 [facility] Automated lymphocyte count a s percentage of total leukocytesOrdered By: Jori Garcia on 01-11-2024 Lymphocytes/100 WBC Auto (Unsp spec) 5.2 % 19-41 [facility] Basophil percentageOrdered B y: Jori Garcia on 01-11-2024 Basophil percentage 1.3 mmol/L 0.4-2.0 [facility] Basophil percentage 0 SEEN /hpf 0-5 [facility] Basophil percentage 10.2 g/dL 12.0-15.0 [facility] Basophil percentage 159 mg/dL 74-106 [facility] Basophil percentage 137 mmol/L 136-145 [facility] Basophil percentage 3.9 mmol/L 3.5-5.1 [facility] Basophil percentage 104 mmol/L 98-107 [facility] Basophils (Bld) [#/Vol] 14.6 10*3/uL 4.4-11.0 [facility] Basophils (Bld) [#/Vol] 12.4 10*3/uL 2.0-7.7 [facility] Basophils/100 WBC (Bld) 85.1 % 47-70 [facility] Basophils/100 WBC (Bld) 7.7 % 0-10 [facility] Basophils/100 WBC (Bld) 0.2 % 0-5 [facility] Basophils/100 WBC (Bld) 0.5 % 0-1 [facility] Bilirubin Test strip Ql (U)O rdered By: Jori Garcia on 01-11-2024 Bilirubin Ql (U) Negative Negative [facility] Determination of erythrocyte mean corpuscular volume (MCV)Ordered By: Jori Garcia on 01-11-2024 MCV (RBC) [Entitic vol] 86.4 fL 81-99 [facility] Erythrocyte distribution wid th ratioOrdered By: Jori Garcia on 01-11-2024 Erythrocyte distribution width (RBC) [Ratio] 15.2 % 11.6-14.6 [facility] Erythrocyte distribution wid th standard deviationOrdered By: Jori Garcia on 01-11-2024 Erythrocyte distribution width (RBC) [Entitic vol] 48.4 fL 35.1-43.9 [facility] Hematocrit Auto (Bld) [Volum e fraction]Ordered By: Jori Garcia on 01-11-2024 Hematocrit (Bld) [Volume fraction] 32.4 % 37-47 [facility] Immature granulocytes/100 WB C Auto (Bld)Ordered By: Jori Garcia on 01-11-2024 Immature granulocytes/100 WBC (Bld) 1.300 % 0.0-0.9 [facility] Ketones Test strip Ql (U)Ord ered By: Jori Garcia on 01-11-2024 Ketones Ql (U) Negative Negative [facility] Mucus LM Ql (Urine sed)Order ed By: Jori Garcia on 01-11-2024 Mucus Ql (Urine sed) 0 SEEN /hpf [facility] Nitrite Test strip Ql (U)Ord ered By: Jori Garcia on 01-11-2024 Nitrite Ql (U) Negative Negative [facility] No Panel InformationOrdered By: Jori Garcia on 01-11-2024 17 pg/mL 3.0-54.0 [facility] 0 SEEN /hpf 0-5 [facility] 27.2 pg 27.0-32.0 [facility] 31.5 g/dL 32-36 [facility] 308 K/mm3 150-450 [facility] 9.2 fl 6.2-12.0 [facility] 0 % 0-5 [facility] 54 mL/min >60 [facility] 65 mL/min >60 [facility] 43.08 ml/min [facility] 16.8 RATIO 10-20 [facility] 2.1 mg/dL 1.6-2.6 [facility] 26.0 mmol/L 21.0-32.0 [facility] Protein Test strip Ql (U)Ord ered By: Jori Garcia on 01-11-2024 Protein Ql (U) Negative Negative [facility] RBC Auto (Bld) [#/Vol]Ordere d By: Jori Garcia on 01-11-2024 RBC (Bld) [#/Vol] 3.75 10*6/uL 4.2-5.4 [place] [facility] Serum or plasma calcium stefania urement (mass/volume)Ordered By: Jori Garcia on 01-11-2024 Calcium [Mass/Vol] 9.1 mg/dL 8.5-10.1 oste [facility] Serum or plasma creatinine m easurement (mass/volume)Ordered By: Jori Garcia on 01-11-2024 Creatinine [Mass/Vol] 1.07 mg/dL 0.55-1.02 [facility] Serum or plasma urea nitroge n measurement (mass/volume)Ordered By: Jori Garcia on 01-11-2024 Urea nitrogen [Mass/Vol] 18 mg/dL 7-18 [facility] Squamous epithelial cells de tection in urine sediment by light microscopyOrdered By: Jori Garcia on 01-11-2024 Epithelial cells.squamous LM Ql (Urine sed) 0 SEEN /hpf 5-10 [facility] Thin prep Papanicolaou smear with manual screeningOrdered By: Jori Garcia on 01-11-2024 Thin prep Papanicolaou smear with manual screening 7 5-15 [facility] Urine blood detectionOrdered By: Jori Garcia on 01-11-2024 RBC Ql (U) Negative Negative [facility] Urine clarityOrdered By: Kasandra Garcia on 01-11-2024 Clarity (U) Clear Clear [facility] Urine color determinationOrd ered By: Jori Garcia on 01-11-2024 Color (U) Yellow Yellow [facility] Urine glucose detectionOrder ed By: Jori Garcia on 01-11-2024 Glucose Ql (U) Normal mg/dl Normal [facility] Urine leukocyte esterase det ection by dipstickOrdered By: Jori Garcia on 01-11-2024 Leukocyte esterase Test strip Ql (U) 25 /ul Negative [facility] Urine pHOrdered By: Jori Garcia on 01-11-2024 pH (U) 7.0 [pH] 5.0 - 8.0 [facility] Urine sediment bacteria coun t by microscopy (number/high power field)Ordered By: Jori Garcia on 01-11-2024 Bacteria LM.HPF (Urine sed) [#/Area] 0 /[HPF] None Seen [facility] Urine specific gravity measu rementOrdered By: Jori Garcia on 01-11-2024 Specific gravity (U) [Rel density] 1.010 1.002-1.03 0 [facility] Urine urobilinogen measureme ntOrdered By: Jori Garcia on 01-11-2024 Urobilinogen Ql (U) Normal mg/dl Normal [facility] Basophil percentageOrdered B y: Betsey Lindquist on 12-21-2023 Basophil percentage 9.9 g/dL 12.0-15.0 [facility] Hematocrit Auto (Bld) [Volum e fraction]Ordered By: Betsey Lindquist on 12-21-2023 Hematocrit (Bld) [Volume fraction] 32.2 % 37-47 [facility] Absolute lymphocyte countOrd ered By: Sachin Murillo on 12-07-2023 Lymphocytes Auto (Unsp spec) [#/Vol] 1.31 10*3/uL 0.83-4.51 [facility] Automated lymphocyte count a s percentage of total leukocytesOrdered By: Sachin Murillo on 12-07-2023 Lymphocytes/100 WBC Auto (Unsp spec) 17.9 % 19-41 [facility] Basophil percentageOrdered B y: Sachin Murillo on 12-07-2023 Basophil percentage 9.0 g/dL 12.0-15.0 [facility] Basophil percentage 94 mg/dL 74-106 [facility] Basophil percentage 142 mmol/L 136-145 [facility] Basophil percentage 3.6 mmol/L 3.5-5.1 [facility] Basophil percentage 111 mmol/L 98-107 [facility] Basophils (Bld) [#/Vol] 7.3 10*3/uL 4.4-11.0 [facility] Basophils (Bld) [#/Vol] 5.2 10*3/uL 2.0-7.7 [facility] Basophils/100 WBC (Bld) 71.0 % 47-70 [facility] Basophils/100 WBC (Bld) 9.8 % 0-10 [facility] Basophils/100 WBC (Bld) 0.1 % 0-1 [facility] Determination of erythrocyte mean corpuscular volume (MCV)Ordered By: Sachin Murillo on 12-07-2023 MCV (RBC) [Entitic vol] 90.7 fL 81-99 [facility] Erythrocyte distribution wid th ratioOrdered By: Sachin Murillo on 12-07-2023 Erythrocyte distribution width (RBC) [Ratio] 15.6 % 11.6-14.6 [facility] Erythrocyte distribution wid th standard deviationOrdered By: Sachin Murillo on 12-07-2023 Erythrocyte distribution width (RBC) [Entitic vol] 51.9 fL 35.1-43.9 [facility] Hematocrit Auto (Bld) [Volum e fraction]Ordered By: Sachin Murillo on 12-07-2023 Hematocrit (Bld) [Volume fraction] 27.4 % 37-47 [facility] Immature granulocytes/100 WB C Auto (Bld)Ordered By: Sachin Murillo on 12-07-2023 Immature granulocytes/100 WBC (Bld) 1.100 % 0.0-0.9 [facility] No Panel InformationOrdered By: Sachin Murillo on 12-07-2023 29.8 pg 27.0-32.0 [facility] 32.8 g/dL 32-36 [facility] 216 K/mm3 150-450 [facility] 0 % 0-5 [facility] 58 mL/min >60 [facility] 70 mL/min >60 [facility] 46.47 ml/min [facility] 29.7 RATIO 10-20 [facility] 26.0 mmol/L 21.0-32.0 [facility] Platelet mean volume Jordan-Ec ker (Bld) [Entitic vol]Ordered By: Sachin Murillo on 12-07-2023 Platelet mean volume (Bld) [Entitic vol] 9.5 fL 6.2-12.0 [facility] RBC Auto (Bld) [#/Vol]Ordere d By: Sachin Murillo on 12-07-2023 RBC (Bld) [#/Vol] 3.02 10*6/uL 4.2-5.4 [facility] Serum or plasma calcium stefania urement (mass/volume)Ordered By: Sachin Murillo on 12-07-2023 Calcium [Mass/Vol] 7.7 mg/dL 8.5-10.1 [facility] Serum or plasma creatinine m easurement (mass/volume)Ordered By: Sachin Murillo on 12-07-2023 Creatinine [Mass/Vol] 1.01 mg/dL 0.55-1.02 [facility] Serum or plasma urea nitroge n measurement (mass/volume)Ordered By: Sachin Murillo on 12-07-2023 Urea nitrogen [Mass/Vol] 30 mg/dL 7-18 [facility] Thin prep Papanicolaou smear with manual screeningOrdered By: Sachin Murillo on 12-07-2023 Thin prep Papanicolaou smear with manual screening 5 5-15 [facility] Iron measurement (mass/mass) Ordered By: Sachin Murillo on 12-06-2023 Iron (Unsp spec) [Mass/Mass] 67 ug/dL 50-170 [facility] No Panel InformationOrdered By: Sachin Murillo on 12-06-2023 203 ug/dL 250-450 [facility] 96 ng/mL 8-252 [facility] Serum or plasma iron saturat ion measurement (mass fraction)Ordered By: Sachin Murillo on 12-06-2023 Iron saturation [Mass fraction] 33.0 % 15.0-55.0 [facility] Basophil percentageOrdered B y: Jorge Hurtado on 12-04-2023 Basophil percentage 13.0 umol/L 11-32 [facility] Basophil percentage 6.4 g/dL 6.4-8.2 [facility] Basophil percentage 0.20 mg/dL 0.20-1.00 [facility] Blood manual differential co mment interpretation (narrative result)Ordered By: Sachin Murillo on 12-04-2023 Manual differential comment Jimy (Bld) [Interp] SCANNED [facility] Direct bilirubinOrdered By: Jorge Hurtado on 12-04-2023 Bilirubin.direct [Mass/Vol] 0.11 mg/dL 0.00-0.30 [facility] No Panel InformationOrdered By: Jorge Hurtado on 12-04-2023 3.7 g/dL 2.2-4.2 [facility] 127 U/L 45-117 [facility] 15 U/L 13-56 [facility] 1.65 uIU/mL 0.358-3.74 [facility] Serum or plasma albumin stefania urement (mass/volume)Ordered By: Jorge Hurtado on 12-04-2023 Albumin [Mass/Vol] 2.7 g/dL 3.2-5.0 [facility] Thin prep Papanicolaou smear with manual screeningOrdered By: Jorge Hurtado on 12-04-2023 Thin prep Papanicolaou smear with manual screening 17 U/L 15-37 [facility] Assessment of wrist artery p atency prior to arterial punctureOrdered By: Sachin Murillo on 12-03-2023 Arterial patency Wrist artery --pre arterial puncture Positive [facility] Base excessOrdered By: Jarred Murillo on 12-03-2023 Base excess Calc (BldV) [Moles/Vol] -3 mmol/L -2-2 [facility] Basophil percentageOrdered B y: Sachin Murillo on 12-03-2023 Basophil percentage 21.5 mmol/L 22-26 [facility] Basophils/100 WBC (Bld) 97 % 95-99 [facility] Basophil percentageOrdered B y: Roman Mckeon on 12-03-2023 Basophil percentage 3.0 mg/dL 2.5-4.9 [facility] CO2 (BldA) [Partial pressure ]Ordered By: Sachin Murillo on 12-03-2023 CO2 (Bld) [Partial pressure] 34.8 mm[Hg] 35-45 [facility] Glucose Glucometer (BldC) [M ass/Vol]Ordered By: Sachin Murillo on 12-03-2023 Glucose [Mass/Vol] 175 mg/dL 74-106 [facility] Measurement, pHOrdered By: Carlos Murillo on 12-03-2023 pH (Unsp spec) 7.40 [pH] 7.35-7.45 [facility] No Panel InformationOrdered By: Sachin Murillo on 12-03-2023 ART [facility] L Radial [facility] Not entered [facility] Cannula [facility] 1.0 [facility] 23 mmol/L [facility] No Panel InformationOrdered By: Roman Mckeon on 12-03-2023 2.6 mg/dL 1.6-2.6 [facility] Oxygen (BldA) [Partial press ure]Ordered By: Sachin Murillo on 12-03-2023 Oxygen (Bld) [Partial pressure] 93 mmHG 75-100 [facility] Absolute lymphocyte countOrd ered By: Gabriella Simpson on 12-02-2023 Lymphocytes Auto (Unsp spec) [#/Vol] 1.89 10*3/uL 0.83-4.51 [facility] Basophil percentageOrdered B y: Gabriella Simpson on 12-02-2023 Basophil percentage 0 SEEN /hpf 0-5 [facility] Basophil percentage 109 mg/dL 74-106 [facility] Basophil percentage 140 mmol/L 136-145 [facility] Basophil percentage 3.7 mmol/L 3.5-5.1 [facility] Basophil percentage 107 mmol/L 98-107 [facility] Basophils (Bld) [#/Vol] 6.6 10*3/uL 4.4-11.0 [facility] Basophils (Bld) [#/Vol] 3.8 10*3/uL 2.0-7.7 [facility] Basophils/100 WBC (Bld) 56.3 % 47-70 [facility] Basophils/100 WBC (Bld) 0.9 % 0-5 [facility] Basophils/100 WBC (Bld) 0.8 % 0-1 [facility] Bilirubin Test strip Ql (U)O rdered By: Gabriella Simpson on 12-02-2023 Bilirubin Ql (U) Negative Negative [facility] Blood erythrocytes count (nu mber/volume)Ordered By: Gabriella Simpson on 12-02-2023 RBC (Bld) [#/Vol] 4.21 10*6/uL 4.2-5.4 [facility] Blood hemoglobin measurement (mass/volume)Ordered By: Gabriella Simpson on 12-02-2023 Hemoglobin (Bld) [Mass/Vol] 12.5 g/dL 12.0-15.0 [facility] Blood lymphocytes/100 leukoc ytesOrdered By: Gabriella Simpson on 12-02-2023 Lymphocytes/100 WBC (Bld) 28.5 % 19-41 [facility] Blood monocytes/100 leukocyt esOrdered By: Gabriella Simpson on 12-02-2023 Monocytes/100 WBC (Bld) 12.7 % 0-10 [facility] Blood platelet mean volumeOr dered By: Gabriella Simpson on 12-02-2023 Platelet mean volume (Bld) [Entitic vol] 9.1 fL 6.2-12.0 [facility] Culture, urineOrdered By: Edgar Mckeon on 12-02-2023 Bacteria identified Cx Nom (U) Culture exhibits no growth. [facility] Bacteria identified Cx Nom (U) Culture exhibits no growth. [facility] Determination of erythrocyte mean corpuscular volume (MCV)Ordered By: Gabriella Simpson on 12-02-2023 MCV (RBC) [Entitic vol] 89.1 fL 81-99 [facility] Hematocrit Auto (Bld) [Volum e fraction]Ordered By: Gabriella Simpson on 12-02-2023 Hematocrit (Bld) [Volume fraction] 37.5 % 37-47 [facility] Ketones Test strip Ql (U)Ord ered By: Gabriella Simpson on 12-02-2023 Ketones Ql (U) Negative Negative [facility] MCHC Auto (RBC) [Mass/Vol]Or dered By: Gabriella Simpson on 12-02-2023 MCHC (RBC) [Mass/Vol] 33.3 g/dL 32-36 [facility] Mucus LM Ql (Urine sed)Order ed By: Gabriella Simpson on 12-02-2023 Mucus Ql (Urine sed) 0 SEEN /hpf [facility] Nitrite Test strip Ql (U)Ord ered By: Gabriella Simpson on 12-02-2023 Nitrite Ql (U) Negative Negative [facility] No Panel InformationOrdered By: Roman Mckeon on 12-02-2023 No growth in 5 days. [facility] No growth in 5 days. [facility] No Panel InformationOrdered By: Gabriella Simpson on 12-02-2023 29.7 pg 27.0-32.0 [facility] 15.5 % 11.6-14.6 [facility] 50.4 fl 35.1-43.9 [facility] 0.800 % 0.0-0.9 [facility] 0 % 0-5 [facility] 51 mL/min >60 [facility] 61 mL/min >60 [facility] 41.54 ml/min [facility] 14.2 RATIO 10-20 [facility] 26 U/L 26-192 [facility] 25.0 mmol/L 21.0-32.0 [facility] Platelets bldOrdered By: Ene Simpson on 12-02-2023 Platelets (Bld) [#/Vol] 281 10*3/uL 150-450 [facility] Protein Test strip Ql (U)Ord ered By: Gabriella Simpson on 12-02-2023 Protein Ql (U) 15 mg/dl Negative [facility] Serum or plasma calcium stefania urement (mass/volume)Ordered By: Gabriella Simpson on 12-02-2023 Calcium [Mass/Vol] 8.8 mg/dL 8.5-10.1 [facility] Serum or plasma creatinine m easurement (mass/volume)Ordered By: Gabriella Simpson on 12-02-2023 Creatinine [Mass/Vol] 1.13 mg/dL 0.55-1.02 [facility] Serum or plasma urea nitroge n measurement (mass/volume)Ordered By: Gabriella Simpson on 12-02-2023 Urea nitrogen [Mass/Vol] 16 mg/dL 7-18 [facility] Squamous epithelial cells de tection in urine sediment by light microscopyOrdered By: Gabriella Simpson on 12-02-2023 Epithelial cells.squamous LM Ql (Urine sed) 0 SEEN /hpf 5-10 [facility] Thin prep Papanicolaou smear with manual screeningOrdered By: Gabriella Simpson on 12-02-2023 Thin prep Papanicolaou smear with manual screening 8 5-15 [facility] Urine blood detectionOrdered By: Gabriella Simpson on 12-02-2023 RBC Ql (U) Negative Negative [facility] RBC Ql (U) 0 SEEN /hpf 0-5 [facility] Urine clarityOrdered By: Ene Simpson on 12-02-2023 Clarity (U) Clear Clear [facility] Urine color determinationOrd ered By: Gabriella Simpson on 12-02-2023 Color (U) Yellow Yellow [facility] Urine glucose detectionOrder ed By: Gabriella Simpson on 12-02-2023 Glucose Ql (U) Normal mg/dl Normal [facility] Urine leukocyte esterase det ection by dipstickOrdered By: Gabriella Simpson on 12-02-2023 Leukocyte esterase Test strip Ql (U) 25 /ul Negative [facility] Urine pHOrdered By: Gabriella peoples on 12-02-2023 pH (U) 6.5 [pH] 5.0 - 8.0 [facility] Urine sediment bacteria coun t by microscopy (number/high power field)Ordered By: Gabriella Simpson on 12-02-2023 Bacteria LM.HPF (Urine sed) [#/Area] 0 /[HPF] None Seen [facility] Urine specific gravity measu rementOrdered By: Gabriella Simpson on 12-02-2023 Specific gravity (U) [Rel density] 1.015 1.002-1.03 0 [facility] Urobilinogen Auto test strip Ql (U)Ordered By: Gabriella Simpson on 12-02-2023 Urobilinogen Ql (U) Normal mg/dl Normal [facility] Absolute lymphocyte countOrd ered By: Ramírez Onofre on 11-27-2023 Lymphocytes Auto (Unsp spec) [#/Vol] 1.75 10*3/uL 0.83-4.51 [facility] Basophil percentageOrdered B y: Ramírez Onofre on 11-27-2023 Basophil percentage 106 mg/dL 74-106 [facility] Basophil percentage 140 mmol/L 136-145 [facility] Basophil percentage 3.7 mmol/L 3.5-5.1 [facility] Basophil percentage 108 mmol/L 98-107 [facility] Basophils (Bld) [#/Vol] 10.4 10*3/uL 4.4-11.0 [facility] Basophils (Bld) [#/Vol] 7.5 10*3/uL 2.0-7.7 [facility] Basophils/100 WBC (Bld) 0.4 % 0-1 [facility] Basophils/100 WBC (Bld) 71.7 % 47-70 [facility] Chloride [Moles/Vol] 108 mmol/L 98-107 [facility] Eosinophils/100 WBC (Bld) 0.4 % 0-5 [facility] Glucose [Mass/Vol] 106 mg/dL 74-106 [facility] Comment on above: Fasting Glucose resu lt from 100 to 125 mg/dL suggests IMPAIRED HOMEOSTASIS per A.D.A. criteria. Neutrophils (Bld) [#/Vol] 7.5 10*3/uL 2.0-7.7 [facility] Neutrophils/100 WBC (Bld) 71.7 % 47-70 [facility] Potassium [Moles/Vol] 3.7 mmol/L 3.5-5.1 [facility] Sodium [Moles/Vol] 140 mmol/L 136-145 [facility] WBC (Bld) [#/Vol] 10.4 10*3/uL 4.4-11.0 [facility] Blood erythrocytes count (nu mber/volume)Ordered By: Ramírez Onofre on 11-27-2023 RBC (Bld) [#/Vol] 3.89 10*6/uL 4.2-5.4 [facility] Blood hemoglobin measurement (mass/volume)Ordered By: Ramírez Onofre on 11-27-2023 Hemoglobin (Bld) [Mass/Vol] 11.6 g/dL 12.0-15.0 [facility] Blood lymphocytes/100 leukoc ytesOrdered By: Ramírez Onofre on 11-27-2023 Lymphocytes/100 WBC (Bld) 16.8 % 19-41 [facility] Blood monocytes/100 leukocyt esOrdered By: Ramírez Onofre on 11-27-2023 Monocytes/100 WBC (Bld) 9.9 % 0-10 [facility] Blood platelet mean volumeOr dered By: Ramírez Onofre on 11-27-2023 Platelet mean volume (Bld) [Entitic vol] 9.0 fL 6.2-12.0 [facility] Determination of erythrocyte mean corpuscular volume (MCV)Ordered By: Ramírez Onofre on 11-27-2023 MCV (RBC) [Entitic vol] 87.9 fL 81-99 [facility] Hematocrit Auto (Bld) [Volum e fraction]Ordered By: Ramírez Onofre on 11-27-2023 Hematocrit (Bld) [Volume fraction] 34.2 % 37-47 [facility] INR in Blood by Coagulation assayOrdered By: Ramírez Onofre on 11-27-2023 INR Coag (Bld) [Relative time] 1.0 {INR} [facility] - Chemistry and C hemistry - challengeOrdered By: Ramírez Onofre on 11-27-2023 CO2 [Moles/Vol] 30.0 mmol/L 21.0-32.0 [facility] Urea nitrogen/Creatinine [Mass ratio] 12.8 mg/mg 10-20 [facility] - CoagulationOrde red By: Ramírez Onofre on 11-27-2023 aPTT Coag (Bld) [Time] 27.8 s 24.1-36.2 [facility] PT Coag (PPP) [Time] 13.0 s 11.7-14.9 [facility] - Hematology and Cell countsOrdered By: Ramírez Onofre on 11-27-2023 Erythrocyte distribution width (RBC) [Entitic vol] 48.7 fL 35.1-43.9 [facility] Erythrocyte distribution width (RBC) [Ratio] 15.3 % 11.6-14.6 [facility] Immature granulocytes/100 WBC (Bld) 0.800 % 0.0-0.9 [facility] Comment on above: IG% - Immature Granu locytes (promyelocytes, myelocytes and metamyelocytes) > 1% indicates that a LEFT SHIFT is Present. MCH (RBC) [Entitic mass] 29.8 pg 27.0-32.0 [facility] Nucleated RBC/100 WBC (Bld) [Ratio] 0 % 0-5 [facility] MCHC Auto (RBC) [Mass/Vol]Or dered By: Ramírez Onofre on 11-27-2023 MCHC (RBC) [Mass/Vol] 33.9 g/dL 32-36 [facility] Comment on above: Delta: 31.9 on 11/2624-1320 No Panel InformationOrdered By: Ramírez Onofre on 11-27-2023 Estimated Creatinine Clearance Calc 41.86 ml/min [facility] Estimated GFR (MDRD) Amer 64 mL/min >60 [facility] Comment on above: GFR Calc Estimated GFR (MDRD) Non-Af Amer 53 mL/min >60 [facility] Comment on above: Non- GFR Calc Troponin I High Sensitivity 10 pg/mL 3.0-54.0 [facility] Comment on above: Please Note: New Kim t Units and Gender Specific Reference Ranges. For more information see Policy Stat Procedure [place] High Sensitivity Troponin (TNIH) and attachments. 29.8 pg 27.0-32.0 [facility] 15.3 % 11.6-14.6 [facility] 48.7 fl 35.1-43.9 [facility] 0.800 % 0.0-0.9 [facility] 0 % 0-5 [facility] 13.0 SECONDS 11.7-14.9 [facility] 27.8 Seconds 24.1-36.2 [facility] 53 mL/min >60 [facility] 64 mL/min >60 [facility] 41.86 ml/min [facility] 12.8 RATIO 10-20 [facility] 10 pg/mL 3.0-54.0 [facility] 30.0 mmol/L 21.0-32.0 [facility] Platelets bldOrdered By: Romeo Onofre on 11-27-2023 Platelets (Bld) [#/Vol] 232 10*3/uL 150-450 [facility] Serum or plasma calcium stefania urement (mass/volume)Ordered By: Ramírez Onofre on 11-27-2023 Calcium [Mass/Vol] 8.7 mg/dL 8.5-10.1 [facility] Serum or plasma creatinine m easurement (mass/volume)Ordered By: Ramírez Onofre on 11-27-2023 Creatinine [Mass/Vol] 1.09 mg/dL 0.55-1.02 [facility] Comment on above: The validity of the calculated GFR & GFRAA in patients over 70 years has not been determined. Clinical correlation is essential. Serum or plasma urea nitroge n measurement (mass/volume)Ordered By: Ramírez Onofre on 11-27-2023 Urea nitrogen [Mass/Vol] 14 mg/dL 7-18 [facility] Thin prep Papanicolaou smear with manual screeningOrdered By: Ramírez Onofre on 11-27-2023 Thin prep Papanicolaou smear with manual screening 2 5-15 [facility] Absolute lymphocyte countOrd ered By: Justice Cid on 11-26-2023 Lymphocytes Auto (Unsp spec) [#/Vol] 1.87 10*3/uL 0.83-4.51 [facility] Basophil percentageOrdered B y: Justice Cid on 11-26-2023 Basophil percentage 120 mg/dL 74-106 [facility] Basophil percentage 142 mmol/L 136-145 [facility] Basophil percentage 4.2 mmol/L 3.5-5.1 [facility] Basophil percentage 108 mmol/L 98-107 [facility] Basophils (Bld) [#/Vol] 9.7 10*3/uL 4.4-11.0 [facility] Basophils (Bld) [#/Vol] 6.8 10*3/uL 2.0-7.7 [facility] Basophils/100 WBC (Bld) 0.5 % 0-1 [facility] Basophils/100 WBC (Bld) 69.4 % 47-70 [facility] Basophils/100 WBC (Bld) 0.4 % 0-5 [facility] Chloride [Moles/Vol] 108 mmol/L 98-107 [facility] Eosinophils/100 WBC (Bld) 0.4 % 0-5 [facility] Glucose [Mass/Vol] 120 mg/dL 74-106 [facility] Comment on above: Fasting Glucose resu lt from 100 to 125 mg/dL suggests IMPAIRED HOMEOSTASIS per A.D.A. criteria. Neutrophils (Bld) [#/Vol] 6.8 10*3/uL 2.0-7.7 [facility] Neutrophils/100 WBC (Bld) 69.4 % 47-70 [facility] Potassium [Moles/Vol] 4.2 mmol/L 3.5-5.1 [facility] Sodium [Moles/Vol] 142 mmol/L 136-145 [facility] WBC (Bld) [#/Vol] 9.7 10*3/uL 4.4-11.0 [facility] Blood erythrocytes count (nu mber/volume)Ordered By: Justice Cid on 11-26-2023 RBC (Bld) [#/Vol] 3.84 10*6/uL 4.2-5.4 [facility] Blood hemoglobin measurement (mass/volume)Ordered By: Justice Cid on 11-26-2023 Hemoglobin (Bld) [Mass/Vol] 10.9 g/dL 12.0-15.0 [facility] Blood lymphocytes/100 leukoc ytesOrdered By: Justice Cid on 11-26-2023 Lymphocytes/100 WBC (Bld) 19.2 % 19-41 [facility] Blood monocytes/100 leukocyt esOrdered By: Justice Cid on 11-26-2023 Monocytes/100 WBC (Bld) 9.7 % 0-10 [facility] Blood platelet mean volumeOr dered By: Justice Cid on 11-26-2023 Platelet mean volume (Bld) [Entitic vol] 8.9 fL 6.2-12.0 [facility] Determination of erythrocyte mean corpuscular volume (MCV)Ordered By: Justice Cid on 11-26-2023 MCV (RBC) [Entitic vol] 89.1 fL 81-99 [facility] Hematocrit Auto (Bld) [Volum e fraction]Ordered By: Justice Cid on 11-26-2023 Hematocrit (Bld) [Volume fraction] 34.2 % 37-47 [facility] - Chemistry and C hemistry - challengeOrdered By: Justice iCd on 11-26-2023 CO2 [Moles/Vol] 31.0 mmol/L 21.0-32.0 [facility] Urea nitrogen/Creatinine [Mass ratio] 13.8 mg/mg 10-20 [facility] - Hematology and Cell countsOrdered By: Justice Cid on 11-26-2023 Erythrocyte distribution width (RBC) [Entitic vol] 49.2 fL 35.1-43.9 [facility] Erythrocyte distribution width (RBC) [Ratio] 15.4 % 11.6-14.6 [facility] Immature granulocytes/100 WBC (Bld) 0.800 % 0.0-0.9 [facility] Comment on above: IG% - Immature Granu locytes (promyelocytes, myelocytes and metamyelocytes) > 1% indicates that a LEFT SHIFT is Present. MCH (RBC) [Entitic mass] 28.4 pg 27.0-32.0 [facility] Nucleated RBC/100 WBC (Bld) [Ratio] 0 % 0-5 [facility] MCHC Auto (RBC) [Mass/Vol]Or dered By: Justice Cid on 11-26-2023 MCHC (RBC) [Mass/Vol] 31.9 g/dL 32-36 [facility] No Panel InformationOrdered By: Justice Cid on 11-26-2023 Estimated Creatinine Clearance Calc 39.99 ml/min [facility] Estimated GFR (MDRD) Amer 60 mL/min >60 [facility] Comment on above: GFR Calc Estimated GFR (MDRD) Non-Af Amer 49 mL/min >60 [facility] Comment on above: Non- GFR Calc Troponin I High Sensitivity 10 pg/mL 3.0-54.0 [facility] Comment on above: Please Note: New Kim t Units and Gender Specific Reference Ranges. For more information see Policy Stat Procedure [place] High Sensitivity Troponin (TNIH) and attachments. 28.4 pg 27.0-32.0 [facility] 15.4 % 11.6-14.6 [facility] 49.2 fl 35.1-43.9 [facility] 0.800 % 0.0-0.9 [facility] 0 % 0-5 [facility] 49 mL/min >60 [facility] 60 mL/min >60 [facility] 39.99 ml/min [facility] 13.8 RATIO 10-20 [facility] 10 pg/mL 3.0-54.0 [facility] 31.0 mmol/L 21.0-32.0 [facility] Platelets bldOrdered By: Yeny Cid on 11-26-2023 Platelets (Bld) [#/Vol] 265 10*3/uL 150-450 [facility] Serum or plasma calcium stefania urement (mass/volume)Ordered By: Justice Cid on 11-26-2023 Calcium [Mass/Vol] 8.2 mg/dL 8.5-10.1 [facility] Serum or plasma creatinine m easurement (mass/volume)Ordered By: Justice Cid on 11-26-2023 Creatinine [Mass/Vol] 1.16 mg/dL 0.55-1.02 [facility] Comment on above: The validity of the calculated GFR & GFRAA in patients over 70 years has not been determined. Clinical correlation is essential. Serum or plasma urea nitroge n measurement (mass/volume)Ordered By: Justice Cid on 11-26-2023 Urea nitrogen [Mass/Vol] 16 mg/dL 7-18 [facility] Thin prep Papanicolaou smear with manual screeningOrdered By: Justice Cid on 11-26-2023 Thin prep Papanicolaou smear with manual screening 3 5-15 [facility] Absolute lymphocyte countOrd ered By: Sachin Murillo on 11-21-2023 Lymphocytes Auto (Unsp spec) [#/Vol] 0.67 10*3/uL 0.83-4.51 [facility] Basophil percentageOrdered B y: Sachin Murillo on 11-21-2023 Basophils (Bld) [#/Vol] 4.7 10*3/uL 4.4-11.0 [facility] Basophils (Bld) [#/Vol] 2.9 10*3/uL 2.0-7.7 [facility] Basophils/100 WBC (Bld) 0.6 % 0-1 [facility] Basophils/100 WBC (Bld) 62.0 % 47-70 [facility] Basophils/100 WBC (Bld) 0.9 % 0-5 [facility] Eosinophils/100 WBC (Bld) 0.9 % 0-5 [facility] Neutrophils (Bld) [#/Vol] 2.9 10*3/uL 2.0-7.7 [facility] Neutrophils/100 WBC (Bld) 62.0 % 47-70 [facility] WBC (Bld) [#/Vol] 4.7 10*3/uL 4.4-11.0 [facility] Blood erythrocytes count (nu mber/volume)Ordered By: Sachin Murillo on 11-21-2023 RBC (Bld) [#/Vol] 3.54 10*6/uL 4.2-5.4 [facility] Blood hemoglobin measurement (mass/volume)Ordered By: Sachin Murillo on 11-21-2023 Hemoglobin (Bld) [Mass/Vol] 10.2 g/dL 12.0-15.0 [facility] Blood lymphocytes/100 leukoc ytesOrdered By: Sachin Murillo on 11-21-2023 Lymphocytes/100 WBC (Bld) 14.3 % 19-41 [facility] Blood monocytes/100 leukocyt esOrdered By: Sachin Murillo on 11-21-2023 Monocytes/100 WBC (Bld) 18.8 % 0-10 [facility] Blood platelet mean volumeOr dered By: Sachin Murillo on 11-21-2023 Platelet mean volume (Bld) [Entitic vol] 9.7 fL 6.2-12.0 [facility] Determination of erythrocyte mean corpuscular volume (MCV)Ordered By: Sachin Murillo on 11-21-2023 MCV (RBC) [Entitic vol] 87.0 fL 81-99 [facility] Hematocrit Auto (Bld) [Volum e fraction]Ordered By: Sachin Murillo on 11-21-2023 Hematocrit (Bld) [Volume fraction] 30.8 % 37-47 [facility] Laboratory - Hematology and Cell countsOrdered By: Sachin Murillo on 11-21-2023 Erythrocyte distribution width (RBC) [Entitic vol] 48.1 fL 35.1-43.9 [facility] Erythrocyte distribution width (RBC) [Ratio] 15.0 % 11.6-14.6 [facility] Immature granulocytes/100 WBC (Bld) 3.400 % 0.0-0.9 [facility] Comment on above: IG% - Immature Granu locytes (promyelocytes, myelocytes and metamyelocytes) > 1% indicates that a LEFT SHIFT is Present. MCH (RBC) [Entitic mass] 28.8 pg 27.0-32.0 [facility] Nucleated RBC/100 WBC (Bld) [Ratio] 0 % 0-5 [facility] MCHC Auto (RBC) [Mass/Vol]Or dered By: Sachin Murillo on 11-21-2023 MCHC (RBC) [Mass/Vol] 33.1 g/dL 32-36 [facility] No Panel InformationOrdered By: Sachin Murillo on 11-21-2023 28.8 pg 27.0-32.0 [facility] 15.0 % 11.6-14.6 [facility] 48.1 fl 35.1-43.9 [facility] 3.400 % 0.0-0.9 [facility] 0 % 0-5 [facility] Platelets bldOrdered By: Ciro Murillo on 11-21-2023 Platelets (Bld) [#/Vol] 141 10*3/uL 150-450 [facility] Basophil percentageOrdered B y: Sachin Murillo on 11-20-2023 Basophil percentage 94 mg/dL 74-106 [facility] Basophil percentage 137 mmol/L 136-145 [facility] Basophil percentage 3.4 mmol/L 3.5-5.1 [facility] Basophil percentage 106 mmol/L 98-107 [facility] Chloride [Moles/Vol] 106 mmol/L 98-107 [facility] Glucose [Mass/Vol] 94 mg/dL 74-106 [facility] Potassium [Moles/Vol] 3.4 mmol/L 3.5-5.1 [facility] Sodium [Moles/Vol] 137 mmol/L 136-145 [facility] Blood manual differential co mment interpretation (narrative result)Ordered By: Sachin Murillo on 11-20-2023 Manual differential comment Jimy (Bld) [Interp] COMMENT [facility] Comment on above: LYMPHOPENIA. Laboratory - Chemistry and C hemistry - challengeOrdered By: Sachin Murillo on 11-20-2023 CO2 [Moles/Vol] 21.0 mmol/L 21.0-32.0 [facility] Urea nitrogen/Creatinine [Mass ratio] 11.5 mg/mg 10-20 [facility] No Panel InformationOrdered By: Sachin Murillo on 11-20-2023 Estimated Creatinine Clearance Calc 53.47 ml/min [facility] Estimated GFR (MDRD) Amer 83 mL/min >60 [facility] Comment on above: GFR Calc Estimated GFR (MDRD) Non-Af Amer 69 mL/min >60 [facility] Comment on above: Non- GFR Calc 69 mL/min >60 [facility] 83 mL/min >60 [facility] 53.47 ml/min [facility] 11.5 RATIO 10-20 [facility] 21.0 mmol/L 21.0-32.0 [facility] No Panel InformationOrdered By: Roman Hewitt on 11-20-2023 Troponin I High Sensitivity 26 pg/mL 3.0-54.0 [facility] Comment on above: Please Note: New Kim t Units and Gender Specific Reference Ranges. For more information see Policy Stat Procedure [place] High Sensitivity Troponin (TNIH) and attachments. 26 pg/mL 3.0-54.0 [facility] Serum or plasma calcium stefania urement (mass/volume)Ordered By: Sachin Murillo on 11-20-2023 Calcium [Mass/Vol] 8.0 mg/dL 8.5-10.1 [facility] Serum or plasma creatinine m easurement (mass/volume)Ordered By: Sachin Murillo on 11-20-2023 Creatinine [Mass/Vol] 0.87 mg/dL 0.55-1.02 [facility] Comment on above: The validity of the calculated GFR & GFRAA in patients over 70 years has not been determined. Clinical correlation is essential. Serum or plasma urea nitroge n measurement (mass/volume)Ordered By: Sachin Murillo on 11-20-2023 Urea nitrogen [Mass/Vol] 10 mg/dL 7-18 [facility] Thin prep Papanicolaou smear with manual screeningOrdered By: Sachin Murillo on 11-20-2023 Thin prep Papanicolaou smear with manual screening 10 5-15 [facility] Basophil percentageOrdered B y: Sommer Resendiz on 11-19-2023 Basophil percentage 5.5 g/dL 6.4-8.2 [facility] Basophil percentage 0.50 mg/dL 0.20-1.00 [facility] Basophil percentage 116 mg/dL <199 [facility] Bilirubin [Mass/Vol] 0.50 mg/dL 0.20-1.00 [facility] Comment on above: For patients on eltr ombopag therapy, use of Dimension Dougherty TBIL is not recommended. Cholesterol [Mass/Vol] 116 mg/dL <200 [facility] Comment on above: <200 mg/dL Desirable 200-240 mg/dL Borderline >240 mg/dL High Risk Protein [Mass/Vol] 5.5 g/dL 6.4-8.2 [facility] Triglyceride [Mass/Vol] 116 mg/dL <199 [facility] Comment on above: The drugs N-Acetylcy steine and Metamizole may falsely depress this assay.Serum Triglycerides Reference Interval Normal <150 mg/dL Borderline high 150 - 199 mg/dL High 200 - 499 mg/dL Very High > or = 500 mg/dL Laboratory - Chemistry and C hemistry - challengeOrdered By: Sommer Resendiz on 11-19-2023 ALP [Catalytic activity/Vol] 79 U/L 45-117 [facility] ALT [Catalytic activity/Vol] 16 U/L [facility] Free T4 [Mass/Vol] 1.66 ng/dL 0.76-1.46 [facility] Globulin (S) [Mass/Vol] 2.9 g/dL 2.2-4.2 [facility] No Panel InformationOrdered By: Sommer Resendiz on 11-19-2023 Thyroid Stimulating Hormone (TSH) 1.42 uIU/mL 0.358-3.74 [facility] 2.9 g/dL 2.2-4.2 [facility] 79 U/L 45-117 [facility] 16 U/L [facility] 1.42 uIU/mL 0.358-3.74 [facility] 1.66 ng/dL 0.76-1.46 [facility] Serum or plasma albumin stefania urement (mass/volume)Ordered By: Sommer Resendiz on 11-19-2023 Albumin [Mass/Vol] 2.6 g/dL 3.2-5.0 [facility] Serum or plasma albumin/glob ulin mass ratioOrdered By: Sommer Resendiz on 11-19-2023 Albumin/Globulin [Mass ratio] 0.9 {ratio} 0.9-2.4 [facility] Serum or plasma cholesterol in HDL measurement (mass/volume)Ordered By: Sommer Resendiz on 11-19-2023 Cholesterol in HDL [Mass/Vol] 30 mg/dL >40 [facility] Comment on above: The drugs N-Acetylcy steine and Metamizole may falsely depress this assay. Reference Range HDL <40 mg/dL Low HDL Cholesterol HDL >or= 60 mg/dL High HDL Cholesterol Serum or plasma cholesterol in VLDL measurement (mass/volume)Ordered By: Sommer Martín on 11-19-2023 Cholesterol in VLDL [Mass/Vol] 23 mg/dL 5-40 [facility] Serum or plasma low density lipoprotein (LDL) cholesterol measurement (mass/volume)Ordered By: Sommer Resendiz on 11-19-2023 Cholesterol in LDL [Mass/Vol] 63 mg/dL 0-130 [facility] Thin prep Papanicolaou smear with manual screeningOrdered By: Sommer Martín on 11-19-2023 Thin prep Papanicolaou smear with manual screening 17 U/L 15-37 [facility] Absolute lymphocyte countOrd ered By: Michele Kebede on 11-18-2023 Lymphocytes Auto (Unsp spec) [#/Vol] 1.07 10*3/uL 0.83-4.51 [facility] Basophil percentageOrdered B y: Michele Kebede on 11-18-2023 Basophil percentage 0-5 SEEN /hpf 0-5 [facility] Basophils/100 WBC (Bld) 0.4 % 0-1 [facility] Bilirubin [Mass/Vol] 0.40 mg/dL 0.20-1.00 [facility] Comment on above: For patients on eltr ombopag therapy, use of Dimension Dougherty TBIL is not recommended. Chloride [Moles/Vol] 110 mmol/L 98-[address] [facility] Eosinophils/100 WBC (Bld) 0.2 % 0-5 [facility] Glucose [Mass/Vol] 116 mg/dL 74-106 [facility] Comment on above: Fasting Glucose resu lt from 100 to 125 mg/dL suggests IMPAIRED HOMEOSTASIS per A.D.A. criteria. Neutrophils (Bld) [#/Vol] 3.7 10*3/uL 2.0-7.7 [facility] Neutrophils/100 WBC (Bld) 66.4 % 47-70 [facility] Potassium [Moles/Vol] 3.5 mmol/L 3.5-5.1 [facility] Protein [Mass/Vol] 6.5 g/dL 6.4-8.2 [facility] Sodium [Moles/Vol] 140 mmol/L 136-145 [facility] WBC (Bld) [#/Vol] 5.5 10*3/uL 4.4-11.0 [facility] Bilirubin Test strip Ql (U)O rdered By: Michele Kebede on 11-18-2023 Bilirubin Ql (U) Negative Negative [facility] Blood erythrocytes count (nu mber/volume)Ordered By: Michele Kebede on 11-18-2023 RBC (Bld) [#/Vol] 4.56 10*6/uL 4.2-5.4 [facility] Blood hemoglobin measurement (mass/volume)Ordered By: Michele Kebede on 11-18-2023 Hemoglobin (Bld) [Mass/Vol] 12.9 g/dL 12.0-15.0 [facility] Blood lymphocytes/100 leukoc ytesOrdered By: Michele Kebede on 11-18-2023 Lymphocytes/100 WBC (Bld) 19.4 % 19-41 [facility] Blood monocytes/100 leukocyt esOrdered By: Michele Kebede on 11-18-2023 Monocytes/100 WBC (Bld) 12.9 % 0-10 [facility] Blood platelet mean volumeOr dered By: Michele Kebede on 11-18-2023 Platelet mean volume (Bld) [Entitic vol] 10.3 fL 6.2-12.0 [facility] Determination of erythrocyte mean corpuscular volume (MCV)Ordered By: Michele Kebede on 11-18-2023 MCV (RBC) [Entitic vol] 85.7 fL 81-99 [facility] Hematocrit Auto (Bld) [Volum e fraction]Ordered By: Michele Kebede on 11-18-2023 Hematocrit (Bld) [Volume fraction] 39.1 % 37-47 [facility] Ketones Test strip Ql (U)Ord ered By: Michele Kebede on 11-18-2023 Ketones Ql (U) 5 mg/dl Negative [facility] Laboratory - Chemistry and C hemistry - challengeOrdered By: Michele Kebede on 11-18-2023 ALP [Catalytic activity/Vol] 93 U/L 45-117 [facility] ALT [Catalytic activity/Vol] 18 U/L 13-56 [facility] CO2 [Moles/Vol] 22.0 mmol/L 21.0-32.0 [facility] Globulin (S) [Mass/Vol] 3.4 g/dL 2.2-4.2 [facility] Urea nitrogen/Creatinine [Mass ratio] 12.2 mg/mg 10-20 [facility] Laboratory - Chemistry and C hemistry - challengeOrdered By: Sommer Resendiz on 11-18-2023 Magnesium [Mass/Vol] 1.8 mg/dL 1.6-2.6 [facility] Laboratory - Hematology and Cell countsOrdered By: Michele Kebede on 11-18-2023 Erythrocyte distribution width (RBC) [Entitic vol] 46.5 fL 35.1-43.9 [facility] Erythrocyte distribution width (RBC) [Ratio] 14.8 % 11.6-14.6 [facility] Immature granulocytes/100 WBC (Bld) 0.700 % 0.0-0.9 [facility] Comment on above: IG% - Immature Granu locytes (promyelocytes, myelocytes and metamyelocytes) > 1% indicates that a LEFT SHIFT is Present. MCH (RBC) [Entitic mass] 28.3 pg 27.0-32.0 [facility] Nucleated RBC/100 WBC (Bld) [Ratio] 0 % 0-5 [facility] MCHC Auto (RBC) [Mass/Vol]Or dered By: Michele Kebede on 11-18-2023 MCHC (RBC) [Mass/Vol] 33.0 g/dL 32-36 [facility] Mucus LM Ql (Urine sed)Order ed By: Michele Kebede on 11-18-2023 Mucus Ql (Urine sed) 0 SEEN /hpf [facility] Nitrite Test strip Ql (U)Ord ered By: Michele Kebede on 11-18-2023 Nitrite Ql (U) Negative Negative [facility] No Panel InformationOrdered By: Michele Kebede on 11-18-2023 Estimated Creatinine Clearance Calc 48.26 ml/min [facility] Estimated GFR (MDRD) Amer 72 mL/min >60 [facility] Comment on above: GFR Calc Estimated GFR (MDRD) Non-Af Amer 59 mL/min >60 [facility] Comment on above: Non- GFR Calc Troponin I High Sensitivity 60 pg/mL 3.0-54.0 [facility] Comment on above: Please Note: New Kim t Units and Gender Specific Reference Ranges. For more information see Policy Stat Procedure [place] High Sensitivity Troponin (TNIH) and attachments. No Panel InformationOrdered By: Sommer Resendiz on 11-18-2023 1.8 mg/dL 1.6-2.6 [facility] Platelets bldOrdered By: Randee Kebede on 11-18-2023 Platelets (Bld) [#/Vol] 123 10*3/uL 150-450 [facility] Protein Test strip Ql (U)Ord ered By: Michele Kebede on 11-18-2023 Protein Ql (U) Negative Negative [facility] Serum or plasma albumin stefania urement (mass/volume)Ordered By: Michele Kebede on 11-18-2023 Albumin [Mass/Vol] 3.1 g/dL 3.2-5.0 [facility] Serum or plasma albumin/glob ulin mass ratioOrdered By: Michele Kebede on 11-18-2023 Albumin/Globulin [Mass ratio] 0.9 {ratio} 0.9-2.4 [facility] Serum or plasma calcium stefania urement (mass/volume)Ordered By: Michele Kebede on 11-18-2023 Calcium [Mass/Vol] 8.0 mg/dL 8.5-10.1 [facility] Serum or plasma creatinine m easurement (mass/volume)Ordered By: Michele Kebede on 11-18-2023 Creatinine [Mass/Vol] 0.99 mg/dL 0.55-1.02 [facility] Comment on above: The validity of the calculated GFR & GFRAA in patients over 70 years has not been determined. Clinical correlation is essential. Serum or plasma urea nitroge n measurement (mass/volume)Ordered By: Michele Kebede on 11-18-2023 Urea nitrogen [Mass/Vol] 12 mg/dL 7-18 [facility] Squamous epithelial cells de tection in urine sediment by light microscopyOrdered By: Michele Kebede on 11-18-2023 Epithelial cells.squamous LM Ql (Urine sed) 5-10 SEEN /hpf 5-10 [facility] Stool gastrointestinal hemog lobin detection by immunologic methodOrdered By: Michele Kebede on 11-18-2023 Lower GI hemoglobin IA Ql (Stl) [facility] Lower GI hemoglobin IA Ql (Stl) [facility] Thin prep Papanicolaou smear with manual screeningOrdered By: Michele Kebede on 11-18-2023 Thin prep Papanicolaou smear with manual screening 17 U/L 15-37 [facility] Thin prep Papanicolaou smear with manual screening 8 5-15 [facility] Urine blood detectionOrdered By: Michele Kebede on 11-18-2023 RBC Ql (U) 25 /ul Negative [facility] RBC Ql (U) 0-5 SEEN /hpf 0-5 [facility] Urine clarityOrdered By: Randee Kebede on 11-18-2023 Clarity (U) Clear Clear [facility] Urine color determinationOrd ered By: Michele Kebede on 11-18-2023 Color (U) Yellow Yellow [facility] Urine glucose detectionOrder ed By: Michele Kebede on 11-18-2023 Glucose Ql (U) Normal mg/dl Normal [facility] Urine leukocyte esterase det ection by dipstickOrdered By: Michele Kebede on 11-18-2023 Leukocyte esterase Test strip Ql (U) 25 /ul Negative [facility] Urine pHOrdered By: Michele gutierrez on 11-18-2023 pH (U) 6.0 [pH] 5.0 - 8.0 [facility] Urine sediment bacteria coun t by microscopy (number/high power field)Ordered By: Michele Kebede on 11-18-2023 Bacteria LM.HPF (Urine sed) [#/Area] 1 /[HPF] None Seen [facility] Urine specific gravity measu rementOrdered By: Michele Kebede on 11-18-2023 Specific gravity (U) [Rel density] 1.015 1.002-1.03 0 [facility] Urobilinogen Auto test strip Ql (U)Ordered By: Michele Kebede on 11-18-2023 Urobilinogen Ql (U) Normal mg/dl Normal [facility] Absolute lymphocyte countOrd ered By: Sommer Resendiz on 11-16-2023 Lymphocytes Auto (Unsp spec) [#/Vol] 0.96 10*3/uL 0.83-4.51 [facility] Basophil percentageOrdered B y: Sommer Resendiz on 11-16-2023 Basophil percentage 73 mg/dL 74-106 [facility] Basophil percentage 5.9 g/dL 6.4-8.2 [facility] Basophil percentage 0.40 mg/dL 0.20-1.00 [facility] Basophil percentage 135 mmol/L 136-145 [facility] Basophil percentage 3.6 mmol/L 3.5-5.1 [facility] Basophil percentage 107 mmol/L 98-107 [facility] Basophils (Bld) [#/Vol] 3.8 10*3/uL 4.4-11.0 [facility] Basophils (Bld) [#/Vol] 2.2 10*3/uL 2.0-7.7 [facility] Basophils/100 WBC (Bld) 0.3 % 0-1 [facility] Basophils/100 WBC (Bld) 57.7 % 47-70 [facility] Bilirubin [Mass/Vol] 0.40 mg/dL 0.20-1.00 [facility] Comment on above: For patients on eltr ombopag therapy, use of Dimension Dougherty TBIL is not recommended. Chloride [Moles/Vol] 107 mmol/L 98-107 [facility] Eosinophils/100 WBC (Bld) 0.3 % 0-5 [facility] Glucose [Mass/Vol] 73 mg/dL 74-106 [facility] Neutrophils (Bld) [#/Vol] 2.2 10*3/uL 2.0-7.7 [facility] Neutrophils/100 WBC (Bld) 57.7 % 47-70 [facility] Potassium [Moles/Vol] 3.6 mmol/L 3.5-5.1 [facility] Protein [Mass/Vol] 5.9 g/dL 6.4-8.2 [facility] Sodium [Moles/Vol] 135 mmol/L 136-145 [facility] WBC (Bld) [#/Vol] 3.8 10*3/uL 4.4-11.0 [facility] Blood erythrocytes count (nu mber/volume)Ordered By: Sommer Resendiz on 11-16-2023 RBC (Bld) [#/Vol] 4.20 10*6/uL 4.2-5.4 [facility] Blood hemoglobin measurement (mass/volume)Ordered By: Sommer Resendiz on 11-16-2023 Hemoglobin (Bld) [Mass/Vol] 12.2 g/dL 12.0-15.0 [facility] Blood lymphocytes/100 leukoc ytesOrdered By: Sommer Resendiz on 11-16-2023 Lymphocytes/100 WBC (Bld) 25.5 % 19-41 [facility] Blood monocytes/100 leukocyt esOrdered By: [facility] Mart[facility] on 11-16-2023 Monocytes/100 WBC (Bld) 15.7 % 0-10 [facility] Blood platelet mean volumeOr dered By: Sommer Resendiz on 11-16-2023 Platelet mean volume (Bld) [Entitic vol] 10.1 fL 6.2-12.0 [facility] Determination of erythrocyte mean corpuscular volume (MCV)Ordered By: Sommer Resendiz on 11-16-2023 MCV (RBC) [Entitic vol] 88.3 fL 81-99 [facility] Hematocrit Auto (Bld) [Volum e fraction]Ordered By: Sommer Resendiz on 11-16-2023 Hematocrit (Bld) [Volume fraction] 37.1 % 37-47 [facility] Laboratory - Chemistry and C hemistry - challengeOrdered By: Sommer Resendiz on 11-16-2023 ALP [Catalytic activity/Vol] 90 U/L 45-117 [facility] ALT [Catalytic activity/Vol] 23 U/L 13-56 [facility] CO2 [Moles/Vol] 21.0 mmol/L 21.0-32.0 [facility] Globulin (S) [Mass/Vol] 3.0 g/dL 2.2-4.2 [facility] Urea nitrogen/Creatinine [Mass ratio] 26.4 mg/mg 10- [facility] Laboratory - Hematology and Cell countsOrdered By: Sommer Resendiz on 11-16-2023 Erythrocyte distribution width (RBC) [Entitic vol] 48.2 fL 35.1-43.9 [facility] Erythrocyte distribution width (RBC) [Ratio] 14.8 % 11.6-14.6 [facility] Immature granulocytes/100 WBC (Bld) 0.500 % 0.0-0.9 [facility] Comment on above: IG% - Immature Granu locytes (promyelocytes, myelocytes and metamyelocytes) > 1% indicates that a LEFT SHIFT is Present. MCH (RBC) [Entitic mass] 29.0 pg 27.0-32.0 [facility] Nucleated RBC/100 WBC (Bld) [Ratio] 0 % 0-5 [facility] MCHC Auto (RBC) [Mass/Vol]Or dered By: Sommer Resendiz on 11-16-2023 MCHC (RBC) [Mass/Vol] 32.9 g/dL 32-36 [facility] No Panel InformationOrdered By: Sommer Resendiz on 11-16-2023 Estimated Creatinine Clearance Calc 28.68 ml/min [facility] Estimated GFR (MDRD) Amer 41 mL/min >60 [facility] Comment on above: GFR Calc Estimated GFR (MDRD) Non-Af Amer 34 mL/min >60 [facility] Comment on above: Non- GFR Calc 29.0 pg 27.0-32.0 [facility] 14.8 % 11.6-14.6 [facility] 48.2 fl 35.1-43.9 [facility] 0.500 % 0.0-0.9 [facility] 0 % 0-5 [facility] 34 mL/min >60 [facility] 41 mL/min >60 [facility] 28.68 ml/min [facility] 26.4 RATIO - [facility] 3.0 g/dL 2.2-4.2 [facility] 90 U/L 45-117 [facility] 23 U/L 13-56 [facility] 21.0 mmol/L 21.0-32.0 [facility] Platelets bldOrdered By: Julian Resendiz on 11-16-2023 Platelets (Bld) [#/Vol] 136 10*3/uL 150-450 [facility] Serum or plasma albumin stefania urement (mass/volume)Ordered By: Sommer Resendiz on 11-16-2023 Albumin [Mass/Vol] 2.9 g/dL 3.2-5.0 [facility] Serum or plasma albumin/glob ulin mass ratioOrdered By: Sommer Martín on 11-16-2023 Albumin/Globulin [Mass ratio] 1.0 {ratio} 0.9-2.4 [facility] Serum or plasma calcium stefania urement (mass/volume)Ordered By: Sommer Martín on 11-16-2023 Calcium [Mass/Vol] 7.4 mg/dL 8.5-10.1 [facility] Serum or plasma creatinine m easurement (mass/volume)Ordered By: Sommer Resendiz on 11-16-2023 Creatinine [Mass/Vol] 1.59 mg/dL 0.55-1.02 [facility] Comment on above: The validity of the calculated GFR & GFRAA in patients over 70 years has not been determined. Clinical correlation is essential. Serum or plasma urea nitroge n measurement (mass/volume)Ordered By: Sommer Martín on 11-16-2023 Urea nitrogen [Mass/Vol] 42 mg/dL 7-18 [facility] Thin prep Papanicolaou smear with manual screeningOrdered By: Sommer Resendiz on 11-16-2023 Thin prep Papanicolaou smear with manual screening 28 U/L 15-37 [facility] Thin prep Papanicolaou smear with manual screening 7 5-15 [facility] Absolute lymphocyte countOrd ered By: Michele Kebede on 11-15-2023 Lymphocytes Auto (Unsp spec) [#/Vol] 0.70 10*3/uL 0.83-4.51 [facility] Basophil percentageOrdered B y: Michele Kebede on 11-15-2023 Basophil percentage 5-10 SEEN /hpf 0-5 [facility] Basophils/100 WBC (Bld) 0.2 % 0-1 [facility] Bilirubin [Mass/Vol] 0.30 mg/dL 0.20-1.00 [facility] Comment on above: For patients on eltr ombopag therapy, use of Dimension Dougherty TBIL is not recommended. Chloride [Moles/Vol] 97 mmol/L 98-107 [facility] Eosinophils/100 WBC (Bld) 0.0 % 0-5 [facility] Glucose [Mass/Vol] 80 mg/dL 74-106 [facility] Neutrophils (Bld) [#/Vol] 3.4 10*3/uL 2.0-7.7 [facility] Neutrophils/100 WBC (Bld) 70.4 % 47-70 [facility] Potassium [Moles/Vol] 3.9 mmol/L 3.5-5.1 [facility] Protein [Mass/Vol] 6.9 g/dL 6.4-8.2 [facility] Sodium [Moles/Vol] 130 mmol/L 136-145 [facility] WBC (Bld) [#/Vol] 4.9 10*3/uL 4.4-11.0 [facility] Bilirubin Test strip Ql (U)O rdered By: Michele Kebede on 11-15-2023 Bilirubin Ql (U) Negative Negative [facility] Blood erythrocytes count (nu mber/volume)Ordered By: Michele Kebede on 11-15-2023 RBC (Bld) [#/Vol] 4.74 10*6/uL 4.2-5.4 [facility] Blood hemoglobin measurement (mass/volume)Ordered By: Michele Kebede on 11-15-2023 Hemoglobin (Bld) [Mass/Vol] 13.7 g/dL 12.0-15.0 [facility] Blood lymphocytes/100 leukoc ytesOrdered By: Michele Kebede on 11-15-2023 Lymphocytes/100 WBC (Bld) 14.3 % 19-41 [facility] Blood monocytes/100 leukocyt esOrdered By: Michele Kebede on 11-15-2023 Monocytes/100 WBC (Bld) 14.5 % 0-10 [facility] Blood platelet mean volumeOr dered By: Michele Kebede on 11-15-2023 Platelet mean volume (Bld) [Entitic vol] 10.1 fL 6.2-12.0 [facility] Calcium oxalate crystals det ection in urine sediment by light microscopyOrdered By: Michele Kebede on 11-15-2023 Calcium oxalate crystals LM Ql (Urine sed) RARE /hpf [facility] Determination of erythrocyte mean corpuscular volume (MCV)Ordered By: Michele Kebede on 11-15-2023 MCV (RBC) [Entitic vol] 86.3 fL 81-99 [facility] Hematocrit Auto (Bld) [Volum e fraction]Ordered By: Michele Kebede on 11-15-2023 Hematocrit (Bld) [Volume fraction] 40.9 % 37-47 [facility] Ketones Test strip Ql (U)Ord ered By: Michele Kebede on 11-15-2023 Ketones Ql (U) 5 mg/dl Negative [facility] Laboratory - Chemistry and C hemistry - challengeOrdered By: Michele Kebede on 11-15-2023 ALP [Catalytic activity/Vol] 104 U/L 45-117 [facility] ALT [Catalytic activity/Vol] 27 U/L 13-56 [facility] CO2 [Moles/Vol] 21.0 mmol/L 21.0-32.0 [facility] Globulin (S) [Mass/Vol] 3.6 g/dL 2.2-4.2 [facility] Lipase [Catalytic activity/Vol] 60 U/L 13-75 [facility] Comment on above: Please note:LIPASE r evised reference range effective 23. New Lipase methodology. Expected to produce lower values than the previous assay method. NEW Reference Range: 13 - 75 U/L Urea nitrogen/Creatinine [Mass ratio] 25.5 mg/mg 10-20 [facility] Laboratory - Hematology and Cell countsOrdered By: Michele Kebede on 11-15-2023 Erythrocyte distribution width (RBC) [Entitic vol] 46.6 fL 35.1-43.9 [facility] Erythrocyte distribution width (RBC) [Ratio] 14.6 % 11.6-14.6 [facility] Immature granulocytes/100 WBC (Bld) 0.600 % 0.0-0.9 [facility] Comment on above: IG% - Immature Granu locytes (promyelocytes, myelocytes and metamyelocytes) > 1% indicates that a LEFT SHIFT is Present. MCH (RBC) [Entitic mass] 28.9 pg 27.0-32.0 [facility] Nucleated RBC/100 WBC (Bld) [Ratio] 0 % 0-5 [facility] Laboratory - Microbiology an d Antimicrobial susceptibilityOrdered By: Michele Kebede on 11-15-2023 SARS-CoV-2 (COVID-19) RNA JAYDON+probe Ql (Unsp spec) Influenzae A [facility] MCHC Auto (RBC) [Mass/Vol]Or dered By: Michele Kebede on 11-15-2023 MCHC (RBC) [Mass/Vol] 33.5 g/dL 32-36 [facility] Mucus LM Ql (Urine sed)Order ed By: Michele Kebede on 11-15-2023 Mucus Ql (Urine sed) 0 SEEN /hpf [facility] Nitrite Test strip Ql (U)Ord ered By: Michele Kebede on 11-15-2023 Nitrite Ql (U) Negative Negative [facility] No Panel InformationOrdered By: Michele Kebede on 11-15-2023 Influenzae A [facility] Influenzae A [facility] Estimated Creatinine Clearance Calc 19.03 ml/min [facility] Estimated GFR (MDRD) Amer 24 mL/min >60 [facility] Comment on above: GFR Calc Estimated GFR (MDRD) Non-Af Amer 20 mL/min >60 [facility] Comment on above: Non- GFR Calc 60 U/L 13-75 [facility] Platelets bldOrdered By: Randee Kebede on 11-15-2023 Platelets (Bld) [#/Vol] 164 10*3/uL 150-450 [facility] Protein Test strip Ql (U)Ord ered By: Michele Kebede on 11-15-2023 Protein Ql (U) 15 mg/dl Negative [facility] Serum or plasma albumin stefania urement (mass/volume)Ordered By: Michele Kebede on 11-15-2023 Albumin [Mass/Vol] 3.3 g/dL 3.2-5.0 [facility] Serum or plasma albumin/glob ulin mass ratioOrdered By: Michele Kebede on 11-15-2023 Albumin/Globulin [Mass ratio] 0.9 {ratio} 0.9-2.4 [facility] Serum or plasma calcium stefania urement (mass/volume)Ordered By: Michele Kebede on 11-15-2023 Calcium [Mass/Vol] 8.1 mg/dL 8.5-10.1 [facility] Serum or plasma creatinine m easurement (mass/volume)Ordered By: Michele Kebede on 11-15-2023 Creatinine [Mass/Vol] 2.51 mg/dL 0.55-1.02 [facility] Comment on above: The validity of the calculated GFR & GFRAA in patients over 70 years has not been determined. Clinical correlation is essential. Serum or plasma urea nitroge n measurement (mass/volume)Ordered By: Michele Kebede on 11-15-2023 Urea nitrogen [Mass/Vol] 64 mg/dL 7-18 [facility] Serum procalcitonin measurem entOrdered By: Sommer Resendiz on 11-15-2023 Procalcitonin [Mass/Vol] 0.24 ng/mL 0.00-0.09 [facility] Comment on above: A procalcitonin (PCT [...] Ql (Urine sed) 5-10 SEEN /hpf 5-10 [facility] Thin prep Papanicolaou smear with manual screeningOrdered By: Michele Kebede on 11-15-2023 Thin prep Papanicolaou smear with manual screening 34 U/L 15-37 [facility] Thin prep Papanicolaou smear with manual screening 15 [facility] Urine blood detectionOrdered By: Michele Kebede on 11-15-2023 RBC Ql (U) 25 /ul Negative [facility] RBC Ql (U) 0-5 SEEN /hpf 0-5 [facility] Urine clarityOrdered By: Randee Kebede on 11-15-2023 Clarity (U) Sl. Cloudy Clear [facility] Urine color determinationOrd ered By: Michele Kebede on 11-15-2023 Color (U) Yellow Yellow [facility] Urine glucose detectionOrder ed By: Michele Kebede on 11-15-2023 Glucose Ql (U) Normal mg/dl Normal [facility] Urine leukocyte esterase det ection by dipstickOrdered By: Michele Kebede on 11-15-2023 Leukocyte esterase Test strip Ql (U) 100 /ul Negative [facility] Urine pHOrdered By: Michele gutierrez on 11-15-2023 pH (U) 5.0 [pH] 5.0 - 8.0 [facility] Urine sediment bacteria coun t by microscopy (number/high power field)Ordered By: Michele Kebede on 11-15-2023 Bacteria LM.HPF (Urine sed) [#/Area] RARE /hpf None Seen [facility] Urine specific gravity measu rementOrdered By: Michele Kebede on 11-15-2023 Specific gravity (U) [Rel density] 1.015 1.002-1.03 0 [facility] Urobilinogen Auto test strip Ql (U)Ordered By: Michele Kebede on 11-15-2023 Urobilinogen Ql (U) Normal mg/dl Normal [facility] IR ARTERIOGRAM EXTREMITY HUNG ATERAL LOWERon 11-13-2023 IR ARTERIOGRAM EXTREMITY BILATERAL LOWER ORIGINAL Images acquired, not reported on this accession number. Normal [facility] ([place]) .Auto Diffon 10-26-2023 Basophil, Absolute 0.1 10 3/mcL Normal 0.0-0.3 [facility]) Comment on above: Performed By: #### A KAILA, ADIFF, GFR, BMP, CBC #### [address] [address] Basophils/100 WBC (Bld) 0.8 % Normal 0.0-2.5 [facility] ([place]) Comment on above: Performed By: #### A KAILA, ADIFF, GFR, BMP, CBC #### [address] [address] Eosinophil, Absolute 0.1 10 3/mcL Normal 0.0-0.7 [facility] ([place]) Comment on above: Performed By: #### A KAILA, ADIFF, GFR, BMP, CBC #### [address] [address] Eosinophils/100 WBC (Bld) 1.5 % Normal 0.0-6.0 [facility] ([place]) Comment on above: Performed By: #### A KAILA, ADIFF, GFR, BMP, CBC #### [address] [address] Lymphocyte, Absolute 1.3 10 3/mcL Normal 0.9-4.3 [facility] ([place]) Comment on above: Performed By: #### A KAILA, ADIFF, GFR, BMP, CBC #### [address] [address] Lymphocytes/100 WBC (Bld) 16.6 % Low 20.0-40.0 [facility] ([place]) Comment on above: Performed By: #### A KAILA, ADIFF, GFR, BMP, CBC #### [address] [address] Monocyte, Absolute 0.6 10 3/mcL Normal 0.1-1.4 [facility] ([place]) Comment on above: Performed By: #### A KAILA, ADIFF, GFR, BMP, CBC #### [address] [address] Monocytes/100 WBC (Bld) 7.8 % Normal 2.0-13.0 [facility] ([place]) Comment on above: Performed By: #### A KAILA, ADIFF, GFR, BMP, CBC #### [address] [address] Neutrophils/100 WBC (Bld) 73.3 % Normal 50.0-75.0 [facility] ([place]) Comment on above: Performed By: #### A KAILA, ADIFF, GFR, BMP, CBC #### [address] [address] .GFRon 10-26-2023 GFR 53 ml/min/1.73sqm Normal [facility] ([place]) Comment on above: Result Comment: GFR [...] A KAILA, ADIFF, GFR, BMP, CBC #### [place] [address] GFR Non- 44 ml/min/1.73sqm Normal [facility] ([place]) Comment on above: Result Comment: GFR [...] A KAILA, ADIFF, GFR, BMP, CBC #### [address] [address] .NEUABSon 10-26-2023 Neutrophil, Absolute 5.7 10 3/mcL Normal 2.3-8.1 [facility] ([place]) Comment on above: Performed By: #### A KAILA, ADIFF, GFR, BMP, CBC #### [address] [address] BMPon 10-26-2023 BUN/Creatinine Ratio 25.6 ratio High 10.0-22.0 [facility] ([place]) Comment on above: Order Comment: hemol yzed talk to noa Performed By: #### A KAILA, ADIFF, GFR, BMP, CBC #### [address] [address] Calcium [Mass/Vol] 7.7 mg/dL Low 8.7-10.4 [facility] ([place]) Comment on above: Order Comment: hemol yzed talk to noa Performed By: #### A KAILA, ADIFF, GFR, BMP, CBC #### [address] [address] Chloride [Moles/Vol] 114 mmol/L High 98-110 [facility] ([place]) Comment on above: Order Comment: hemol yzed talk to noa Performed By: #### A KAILA, ADIFF, GFR, BMP, CBC #### [address] [address] CO2 [Moles/Vol] 29 mmol/L Normal 22-32 [facility] ([place]) Comment on above: Order Comment: hemol yzed talk to noa Performed By: #### A KAILA, ADIFF, GFR, BMP, CBC #### [address] [address] Creatinine [Mass/Vol] 1.21 mg/dL High 0.50-1.20 [facility] ([place]) Comment on above: Order Comment: hemol yzed talk to noa Performed By: #### A KAILA, ADIFF, GFR, BMP, CBC #### [address] [address] Electrolyte Balance -1.0 mEq/L Low 4.0-15.0 [facility] ([place]) Comment on above: Order Comment: hemol yzed talk to noa Performed By: #### A KAILA, ADIFF, GFR, BMP, CBC #### [address] [address] Potassium [Moles/Vol] 3.9 mmol/L Normal 3.5-5.0 [facility] ([place]) Comment on above: Order Comment: hemol yzed talk to noa Performed By: #### A KAILA, ADIFF, GFR, BMP, CBC #### [address] [address] Sodium [Moles/Vol] 142 mmol/L Normal 136-145 [facility] ([place]) Comment on above: Order Comment: hemol yzed talk to noa Performed By: #### A KAILA, ADIFF, GFR, BMP, CBC #### [place] [id number] Glucose [Mass/Vol] 78 mg/dL Low 82-115 [facility] ([place]) Comment on above: Order Comment: hemol yzed talk to noa Performed By: #### A KAILA, ADIFF, GFR, BMP, CBC #### [place] [id number] Urea nitrogen [Mass/Vol] 31.0 mg/dL High 8.0-22.0 [facility] ([place]) Comment on above: Order Comment: hemol yzed talk to noa Performed By: #### A KAILA, ADIFF, GFR, BMP, CBC #### [address] [address] CBCon 10-26-2023 Erythrocyte distribution width (RBC) [Ratio] 14.9 % Normal 11.5-15.5 [facility] ([place]) Comment on above: Performed By: #### A KAILA, ADIFF, GFR, BMP, CBC #### [address] [address] Hematocrit (Bld) [Volume fraction] 40.0 % Normal 34.0-46.0 [facility] ([place]) Comment on above: Performed By: #### A KAILA, ADIFF, GFR, BMP, CBC #### [place] [id number] Hgb 13.7 G/dL Normal 12.0-16.0 [facility] ([place]) Comment on above: Performed By: #### A KAILA, ADIFF, GFR, BMP, CBC #### [place] [address] MCH (RBC) [Entitic mass] 29.9 pg Normal 27.0-33.0 [facility] ([place]) Comment on above: Performed By: #### A KAILA, ADIFF, GFR, BMP, CBC #### [place] [address] MCHC 34.2 G/dL Normal 32.0-36.0 [facility] ([place]) Comment on above: Performed By: #### A KAILA, ADIFF, GFR, BMP, CBC #### [place] [address] MCV (RBC) [Entitic vol] 87.4 fL Normal 80.0-99.0 [facility] ([place]) Comment on above: Performed By: #### A KAILA, ADIFF, GFR, BMP, CBC #### [place] [address] Platelet 188 10 3/mcL Normal 150-450 [facility] ([place]) Comment on above: Performed By: #### A KAILA, ADIFF, GFR, BMP, CBC #### [place] [address] Platelet mean volume (Bld) [Entitic vol] 7.5 fL Normal 6.6-10.5 [facility] ([place]) Comment on above: Performed By: #### A KAILA, ADIFF, GFR, BMP, CBC #### [place] [address] RBC 4.57 10 6/mcL Normal 4.10-5.30 [facility] ([place]) Comment on above: Performed By: #### A KAILA, ADIFF, GFR, BMP, CBC #### [place] [address] WBC 7.8 10 3/mcL Normal 4.5-10.8 [facility] ([place]) Comment on above: Performed By: #### A KAILA, ADIFF, GFR, BMP, CBC #### [facility] [address] [place] [address] * Body fluid crystals type b y light microscopyOrdered By: Kai Jacobson on 10-22-2023 Crystals LM Nom (Body fld) See PATH REV [facility] Comment on above: CRYSTAL RESULT IS PRELIMINARY. SEE PATH REVIEW FOR FINAL REPORT. Review by pathologistOrdered By: Kai Jacobson on 10-22-2023 Pathologist review Jimy (Unsp spec) [Interp] Reviewed [facility] Comment on above: Previous reported re sult: Will follow Edited by: PELON on 10/23/23:1346Negative for crystalsRod Thomas M.D. 10/23/23 AMENDED REPORT 10/23/23 1346 PATH REV previously reported as: Will follow Specimen source identificati on of body fluidOrdered By: Kai Jacobson on 10-22-2023 Specimen source Nom (Body fld) SYNOVIAL [facility] Absolute lymphocyte countOrd ered By: ED PROVIDER on 10-05-2023 Lymphocytes Auto (Unsp spec) [#/Vol] 1.62 10*3/uL 0.83-4.51 [facility] Basophil percentageOrdered B y: ED PROVIDER on 10-05-2023 Basophil percentage 108 mg/dL 74-106 [facility] Basophil percentage 142 mmol/L 136-145 [facility] Basophil percentage 4.3 mmol/L 3.5-5.1 [facility] Basophil percentage 110 mmol/L 98-107 [facility] Basophils (Bld) [#/Vol] 7.2 10*3/uL 4.4-11.0 [facility] Basophils (Bld) [#/Vol] 4.8 10*3/uL 2.0-7.7 [facility] Basophils/100 WBC (Bld) 0.7 % 0-1 [facility] Basophils/100 WBC (Bld) 66.3 % 47-70 [facility] Basophils/100 WBC (Bld) 2.9 % 0-5 [facility] Chloride [Moles/Vol] 110 mmol/L 98-107 [facility] Eosinophils/100 WBC (Bld) 2.9 % 0-5 [facility] Glucose [Mass/Vol] 108 mg/dL 74-106 [facility] Comment on above: Fasting Glucose resu lt from 100 to 125 mg/dL suggests IMPAIRED HOMEOSTASIS per A.D.A. criteria. Neutrophils (Bld) [#/Vol] 4.8 10*3/uL 2.0-7.7 [facility] Neutrophils/100 WBC (Bld) 66.3 % 47-70 [facility] Potassium [Moles/Vol] 4.3 mmol/L 3.5-5.1 [facility] Sodium [Moles/Vol] 142 mmol/L 136-145 [facility] WBC (Bld) [#/Vol] 7.2 10*3/uL 4.4-11.0 [facility] Blood erythrocytes count (nu mber/volume)Ordered By: ED PROVIDER on 10-05-2023 RBC (Bld) [#/Vol] 5.19 10*6/uL 4.2-5.4 [facility] Blood hemoglobin measurement (mass/volume)Ordered By: ED PROVIDER on 10-05-2023 Hemoglobin (Bld) [Mass/Vol] 14.9 g/dL 12.0-15.0 [facility] Blood lymphocytes/100 leukoc ytesOrdered By: ED PROVIDER on 10-05-2023 Lymphocytes/100 WBC (Bld) 22.4 % 19-41 [facility] Blood monocytes/100 leukocyt esOrdered By: ED PROVIDER on 10-05-2023 Monocytes/100 WBC (Bld) 7.3 % 0-10 [facility] Blood platelet mean volumeOr dered By: ED PROVIDER on 10-05-2023 Platelet mean volume (Bld) [Entitic vol] 9.6 fL 6.2-12.0 [facility] Determination of erythrocyte mean corpuscular volume (MCV)Ordered By: ED PROVIDER on 10-05-2023 MCV (RBC) [Entitic vol] 88.8 fL 81-99 [facility] Hematocrit Auto (Bld) [Volum e fraction]Ordered By: ED PROVIDER on 10-05-2023 Hematocrit (Bld) [Volume fraction] 46.1 % 37-47 [facility] - Chemistry and C hemistry - challengeOrdered By: Yasmani Haynes on 10-05-2023 Magnesium [Mass/Vol] 2.0 mg/dL 1.6-2.6 [facility] - Chemistry and C hemistry - challengeOrdered By: ED PROVIDER on 10-05-2023 CO2 [Moles/Vol] 27.0 mmol/L 21.0-32.0 [facility] Urea nitrogen/Creatinine [Mass ratio] 20.7 mg/mg 10-20 [facility] - Hematology and Cell countsOrdered By: ED PROVIDER on 10-05-2023 Erythrocyte distribution width (RBC) [Entitic vol] 45.3 fL 35.1-43.9 [facility] Erythrocyte distribution width (RBC) [Ratio] 14.0 % 11.6-14.6 [facility] Immature granulocytes/100 WBC (Bld) 0.400 % 0.0-0.9 [facility] Comment on above: IG% - Immature Granu locytes (promyelocytes, myelocytes and metamyelocytes) > 1% indicates that a LEFT SHIFT is Present. MCH (RBC) [Entitic mass] 28.7 pg 27.0-32.0 [facility] Nucleated RBC/100 WBC (Bld) [Ratio] 0 % 0-5 [facility] MCHC Auto (RBC) [Mass/Vol]Or dered By: ED PROVIDER on 10-05-2023 MCHC (RBC) [Mass/Vol] 32.3 g/dL 32-36 [facility] No Panel InformationOrdered By: ED PROVIDER on 10-05-2023 Troponin I High Sensitivity 8 pg/mL 3.0-54.0 [facility] Comment on above: Please Note: New Kim t Units and Gender Specific Reference Ranges. For more information see Policy Stat Procedure Dougherty High Sensitivity Troponin (TNIH) and attachments. 8 pg/mL 3.0-54.0 [facility] Estimated Creatinine Clearance Calc 43.04 ml/min [facility] Estimated GFR (MDRD) Amer 63 mL/min >60 [facility] Comment on above: GFR Calc Estimated GFR (MDRD) Non-Af Amer 52 mL/min >60 [facility] Comment on above: Non- GFR Calc 28.7 pg 27.0-32.0 [facility] 14.0 % 11.6-14.6 [facility] 45.3 fl 35.1-43.9 [facility] 0.400 % 0.0-0.9 [facility] 0 % 0-5 [facility] 52 mL/min >60 [facility] 63 mL/min >60 [facility] 43.04 ml/min [facility] 20.7 RATIO 10-20 [facility] 27.0 mmol/L 21.0-32.0 [facility] No Panel InformationOrdered By: Yasmani Haynes on 10-05-2023 2.0 mg/dL 1.6-2.6 [facility] Platelets bldOrdered By: ED PROVIDER on 10-05-2023 Platelets (Bld) [#/Vol] 206 10*3/uL 150-450 [facility] Serum or plasma calcium stefania urement (mass/volume)Ordered By: ED PROVIDER on 10-05-2023 Calcium [Mass/Vol] 9.5 mg/dL 8.5-10.1 [facility] Serum or plasma creatinine m easurement (mass/volume)Ordered By: ED PROVIDER on 10-05-2023 Creatinine [Mass/Vol] 1.11 mg/dL 0.55-1.02 [facility] Comment on above: The validity of the calculated GFR & GFRAA in patients over 70 years has not been determined. Clinical correlation is essential. Serum or plasma urea nitroge n measurement (mass/volume)Ordered By: ED PROVIDER on 10-05-2023 Urea nitrogen [Mass/Vol] 23 mg/dL 7-18 [facility] Thin prep Papanicolaou smear with manual screeningOrdered By: ED PROVIDER on 10-05-2023 Thin prep Papanicolaou smear with manual screening 5 5-15 [facility] Absolute lymphocyte countOrd ered By: Daron Benton on 08-21-2023 Lymphocytes Auto (Unsp spec) [#/Vol] 1.45 10*3/uL 0.83-4.51 [facility] Basophil percentageOrdered B y: Daron Benton on 08-21-2023 Basophil percentage 86 mg/dL 74-106 [facility] Basophil percentage 7.3 g/dL 6.4-8.2 [facility] Basophil percentage 0.30 mg/dL 0.20-1.00 [facility] Basophil percentage 139 mmol/L 136-145 [facility] Basophil percentage 4.7 mmol/L 3.5-5.1 [facility] Basophil percentage 108 mmol/L 98-107 [facility] Basophils (Bld) [#/Vol] 7.3 10*3/uL 4.4-11.0 [facility] Basophils (Bld) [#/Vol] 5.0 10*3/uL 2.0-7.7 [facility] Basophils/100 WBC (Bld) 0.7 % 0-1 [facility] Basophils/100 WBC (Bld) 68.4 % 47-70 [facility] Basophils/100 WBC (Bld) 3.1 % 0-5 [facility] Bilirubin [Mass/Vol] 0.30 mg/dL 0.20-1.00 [facility] Comment on above: For patients on eltr ombopag therapy, use of Dimension Dougherty TBIL is not recommended. Chloride [Moles/Vol] 108 mmol/L 98-107 [facility] Eosinophils/100 WBC (Bld) 3.1 % 0-5 [facility] Glucose [Mass/Vol] 86 mg/dL 74-106 [facility] Neutrophils (Bld) [#/Vol] 5.0 10*3/uL 2.0-7.7 [facility] Neutrophils/100 WBC (Bld) 68.4 % 47-70 [facility] Potassium [Moles/Vol] 4.7 mmol/L 3.5-5.1 [facility] Protein [Mass/Vol] 7.3 g/dL 6.4-8.2 [facility] Sodium [Moles/Vol] 139 mmol/L 136-145 [facility] WBC (Bld) [#/Vol] 7.3 10*3/uL 4.4-11.0 [facility] Blood erythrocytes count (nu mber/volume)Ordered By: Daron Benton on 08-21-2023 RBC (Bld) [#/Vol] 4.99 10*6/uL 4.2-5.4 [facility] Blood hemoglobin measurement (mass/volume)Ordered By: Daron Benton on 08-21-2023 Hemoglobin (Bld) [Mass/Vol] 14.5 g/dL 12.0-15.0 [facility] Blood lymphocytes/100 leukoc ytesOrdered By: Daron Benton on 08-21-2023 Lymphocytes/100 WBC (Bld) 19.8 % 19-41 [facility] Blood monocytes/100 leukocyt esOrdered By: Daron Benton on 08-21-2023 Monocytes/100 WBC (Bld) 7.5 % 0-10 [facility] Blood platelet mean volumeOr dered By: Daron Benton on 08-21-2023 Platelet mean volume (Bld) [Entitic vol] 10.7 fL 6.2-12.0 [facility] Determination of erythrocyte mean corpuscular volume (MCV)Ordered By: Daron Benton on 08-21-2023 MCV (RBC) [Entitic vol] 91.6 fL 81-99 [facility] Hematocrit Auto (Bld) [Volum e fraction]Ordered By: Daron Benton on 08-21-2023 Hematocrit (Bld) [Volume fraction] 45.7 % 37-47 [facility] - Chemistry and C hemistry - challengeOrdered By: Daron Benton on 08-21-2023 ALP [Catalytic activity/Vol] 122 U/L 45-117 [facility] ALT [Catalytic activity/Vol] 26 U/L 13-56 [facility] CO2 [Moles/Vol] 28.0 mmol/L 21.0-32.0 [facility] Globulin (S) [Mass/Vol] 3.6 g/dL 2.2-4.2 [facility] Urea nitrogen/Creatinine [Mass ratio] 22.2 mg/mg 10-20 [facility] - Hematology and Cell countsOrdered By: Daron Benton on 08-21-2023 Erythrocyte distribution width (RBC) [Entitic vol] 46.4 fL 35.1-43.9 [facility] Erythrocyte distribution width (RBC) [Ratio] 13.8 % 11.6-14.6 [facility] Immature granulocytes/100 WBC (Bld) 0.500 % 0.0-0.9 [facility] Comment on above: IG% - Immature Granu locytes (promyelocytes, myelocytes and metamyelocytes) > 1% indicates that a LEFT SHIFT is Present. MCH (RBC) [Entitic mass] 29.1 pg 27.0-32.0 [facility] Nucleated RBC/100 WBC (Bld) [Ratio] 0 % 0-5 [facility] MCHC Auto (RBC) [Mass/Vol]Or dered By: Daron Benton on 08-21-2023 MCHC (RBC) [Mass/Vol] 31.7 g/dL 32-36 [facility] No Panel InformationOrdered By: Daron Benton on 08-21-2023 Estimated GFR (MDRD) Amer 65 mL/min >60 [facility] Comment on above: GFR Calc Estimated GFR (MDRD) Non-Af Amer 53 mL/min >60 [facility] Comment on above: Non- GFR Calc Thyroid Stimulating Hormone (TSH) 2.00 uIU/mL 0.358-3.74 [facility] 29.1 pg 27.0-32.0 [facility] 13.8 % 11.6-14.6 [facility] 46.4 fl 35.1-43.9 [facility] 0.500 % 0.0-0.9 [facility] 0 % 0-5 [facility] 53 mL/min >60 [facility] 65 mL/min >60 [facility] 22.2 RATIO 10-20 [facility] 3.6 g/dL 2.2-4.2 [facility] 122 U/L 45-117 [facility] 26 U/L 13-56 [facility] 28.0 mmol/L 21.0-32.0 [facility] 2.00 uIU/mL 0.358-3.74 [facility] Platelets bldOrdered By: Nila Benton on 08-21-2023 Platelets (Bld) [#/Vol] 184 10*3/uL 150-450 [facility] Serum or plasma albumin stefania urement (mass/volume)Ordered By: Daron Benton on 08-21-2023 Albumin [Mass/Vol] 3.7 g/dL 3.2-5.0 [facility] Serum or plasma albumin/glob ulin mass ratioOrdered By: Daron Benton on 08-21-2023 Albumin/Globulin [Mass ratio] 1.0 {ratio} 0.9-2.4 [facility] Serum or plasma calcium stefania urement (mass/volume)Ordered By: Daron Benton on 08-21-2023 Calcium [Mass/Vol] 9.2 mg/dL 8.5-10.1 [facility] Serum or plasma creatinine m easurement (mass/volume)Ordered By: Daron Benton on 08-21-2023 Creatinine [Mass/Vol] 1.08 mg/dL 0.55-1.02 [facility] Comment on above: The validity of the calculated GFR & GFRAA in patients over 70 years has not been determined. Clinical correlation is essential. Serum or plasma urea nitroge n measurement (mass/volume)Ordered By: Daron Benton on 08-21-2023 Urea nitrogen [Mass/Vol] 24 mg/dL 7-18 [facility] Thin prep Papanicolaou smear with manual screeningOrdered By: Daron Benton on 08-21-2023 Thin prep Papanicolaou smear with manual screening 18 U/L 15-37 [facility] Thin prep Papanicolaou smear with manual screening 3 5-15 [facility] Basophil percentageOrdered B y: Dr. Benton on 04-26-2023 Bilirubin [Mass/Vol] 0.30 mg/dL 0.20-1.00 [facility] Comment on above: For patients on eltr ombopag therapy, use of Dimension Dougherty TBIL is not recommended. Chloride [Moles/Vol] 109 mmol/L 98-107 [facility] Glucose [Mass/Vol] 95 mg/dL 74-106 [facility] Potassium [Moles/Vol] 4.6 mmol/L 3.5-5.1 [facility] Protein [Mass/Vol] 7.1 g/dL 6.4-8.2 [facility] Sodium [Moles/Vol] 138 mmol/L 136-145 [facility] INR in Blood by Coagulation assayOrdered By: Dr. Benton on 04-26-2023 INR Coag (Bld) [Relative time] 0.9 {INR} [facility] - Chemistry and C hemistry - challengeOrdered By: Dr. Benton on 04-26-2023 ALP [Catalytic activity/Vol] 109 U/L 45-117 [facility] ALT [Catalytic activity/Vol] 26 U/L 13-56 [facility] CO2 [Moles/Vol] 27.0 mmol/L 21.0-32.0 [facility] Globulin (S) [Mass/Vol] 3.6 g/dL 2.2-4.2 [facility] Urea nitrogen/Creatinine [Mass ratio] 26.9 mg/mg 10-20 [facility] - CoagulationOrde red By: Dr. Benton on 04-26-2023 PT Coag (PPP) [Time] 12.5 s 11.7-14.9 [facility] No Panel InformationOrdered By: Dr. Benton on 04-26-2023 Estimated GFR (MDRD) Amer 73 mL/min >60 [facility] Comment on above: GFR Calc Estimated GFR (MDRD) Non-Af Amer 61 mL/min >60 [facility] Comment on above: Non- GFR Calc Serum or plasma albumin stefania urement (mass/volume)Ordered By: Dr. Benton on 04-26-2023 Albumin [Mass/Vol] 3.5 g/dL 3.2-5.0 [facility] Serum or plasma albumin/glob ulin mass ratioOrdered By: Dr. Benton on 04-26-2023 Albumin/Globulin [Mass ratio] 1.0 {ratio} 0.9-2.4 [facility] Serum or plasma calcium stefania urement (mass/volume)Ordered By: Dr. Benton on 04-26-2023 Calcium [Mass/Vol] 9.5 mg/dL 8.5-10.1 [facility] Serum or plasma creatinine m easurement (mass/volume)Ordered By: Dr. Benton on 04-26-2023 Creatinine [Mass/Vol] 0.97 mg/dL 0.55-1.02 [facility] Comment on above: The validity of the calculated GFR & GFRAA in patients over 70 years has not been determined. Clinical correlation is essential. Serum or plasma transthyreti n measurement (mass/volume)Ordered By: Dr. Benton on 04-26-2023 Prealbumin [Mass/Vol] 19.6 mg/dL 20.0-40.0 [facility] Serum or plasma urea nitroge n measurement (mass/volume)Ordered By: Dr. Benton on 04-26-2023 Urea nitrogen [Mass/Vol] 26 mg/dL 7-18 [facility] Thin prep Papanicolaou smear with manual screeningOrdered By: Dr. Benton on 04-26-2023 Thin prep Papanicolaou smear with manual screening 14 U/L 15-37 [facility] Thin prep Papanicolaou smear with manual screening 2 5-15 [facility] Absolute lymphocyte countOrd ered By: Dr. Garcia on 04-08-2023 Lymphocytes Auto (Unsp spec) [#/Vol] 1.45 10*3/uL 0.83-4.51 [facility] Basophil percentageOrdered B y: Dr. Garcia on 04-08-2023 Basophils/100 WBC (Bld) 0.7 % 0-1 [facility] Chloride [Moles/Vol] 105 mmol/L 98-107 [facility] Eosinophils/100 WBC (Bld) 1.5 % 0-5 [facility] Glucose [Mass/Vol] 96 mg/dL 74-106 [facility] Neutrophils (Bld) [#/Vol] 5.3 10*3/uL 2.0-7.7 [facility] Neutrophils/100 WBC (Bld) 70.5 % 47-70 [facility] Potassium [Moles/Vol] 3.8 mmol/L 3.5-5.1 [facility] Sodium [Moles/Vol] 141 mmol/L 136-145 [facility] WBC (Bld) [#/Vol] 7.6 10*3/uL 4.4-11.0 [facility] Blood erythrocytes count (nu mber/volume)Ordered By: Dr. Garcia on 04-08-2023 RBC (Bld) [#/Vol] 5.14 10*6/uL 4.2-5.4 [facility] Blood hemoglobin measurement (mass/volume)Ordered By: Dr. Garcia on 04-08-2023 Hemoglobin (Bld) [Mass/Vol] 15.1 g/dL 12.0-15.0 [facility] Blood lymphocytes/100 leukoc ytesOrdered By: Dr. Garcia on 04-08-2023 Lymphocytes/100 WBC (Bld) 19.2 % 19-41 [facility] Blood monocytes/100 leukocyt esOrdered By: Dr. Garcia on 04-08-2023 Monocytes/100 WBC (Bld) 7.7 % 0-10 [facility] Blood platelet mean volumeOr dered By: Dr. Garcia on 04-08-2023 Platelet mean volume (Bld) [Entitic vol] 10.2 fL 6.2-12.0 [facility] Determination of erythrocyte mean corpuscular volume (MCV)Ordered By: Dr. Garcia on 04-08-2023 MCV (RBC) [Entitic vol] 89.1 fL 81-99 [facility] Hematocrit Auto (Bld) [Volum e fraction]Ordered By: Dr. Garcia on 04-08-2023 Hematocrit (Bld) [Volume fraction] 45.8 % 37-47 [facility] - Chemistry and C hemistry - challengeOrdered By: Dr. Garcia on 04-08-2023 CO2 [Moles/Vol] 29.0 mmol/L 21.0-32.0 [facility] Urea nitrogen/Creatinine [Mass ratio] 24.0 mg/mg 10-20 [facility] - Hematology and Cell countsOrdered By: Dr. Garcia on 04-08-2023 Erythrocyte distribution width (RBC) [Entitic vol] 46.6 fL 35.1-43.9 [facility] Erythrocyte distribution width (RBC) [Ratio] 14.4 % 11.6-14.6 [facility] Immature granulocytes/100 WBC (Bld) 0.400 % 0.0-0.9 [facility] Comment on above: IG% - Immature Granu locytes (promyelocytes, myelocytes and metamyelocytes) > 1% indicates that a LEFT SHIFT is Present. MCH (RBC) [Entitic mass] 29.4 pg 27.0-32.0 [facility] Nucleated RBC/100 WBC (Bld) [Ratio] 0 % 0-5 [facility] MCHC Auto (RBC) [Mass/Vol]Or dered By: Dr. Garcia on 04-08-2023 MCHC (RBC) [Mass/Vol] 33.0 g/dL 32-36 [facility] No Panel InformationOrdered By: Dr. Garcia on 04-08-2023 Troponin I High Sensitivity 9 pg/mL 3.0-54.0 [facility] Comment on above: Please Note: New Kim t Units and Gender Specific Reference Ranges. For more information see Policy Stat Procedure Dougherty High Sensitivity Troponin (TNIH) and attachments. Estimated Creatinine Clearance Calc 50.23 ml/min [facility] Estimated GFR (MDRD) Amer 83 mL/min >60 [facility] Comment on above: GFR Calc Estimated GFR (MDRD) Non-Af Amer 68 mL/min >60 [facility] Comment on above: Non- GFR Calc Platelets bldOrdered By: Dr. Garcia on 04-08-2023 Platelets (Bld) [#/Vol] 171 10*3/uL 150-450 [facility] Serum or plasma calcium stefania urement (mass/volume)Ordered By: Dr. Garcia on 04-08-2023 Calcium [Mass/Vol] 9.6 mg/dL 8.5-10.1 [facility] Serum or plasma creatinine m easurement (mass/volume)Ordered By: Dr. Garcia on 04-08-2023 Creatinine [Mass/Vol] 0.88 mg/dL 0.55-1.02 [facility] Comment on above: The validity of the calculated GFR & GFRAA in patients over 70 years has not been determined. Clinical correlation is essential. Serum or plasma urea nitroge n measurement (mass/volume)Ordered By: Dr. Garcia on 04-08-2023 Urea nitrogen [Mass/Vol] 21 mg/dL 7-18 [facility] Thin prep Papanicolaou smear with manual screeningOrdered By: Dr. Garcia on 04-08-2023 Thin prep Papanicolaou smear with manual screening 7 5-15 [facility] Culture, urineOrdered By: Dr Hero Campbell on 04-01-2023 Bacteria identified Cx Nom (U) Positive [facility] Basophil percentageOrdered B y: Dr. Campbell on 03-31-2023 Basophil percentage 0 SEEN /hpf 0-5 [facility] Bilirubin Test strip Ql (U)O rdered By: Dr. Campbell on 03-31-2023 Bilirubin Ql (U) Negative Negative [facility] Ketones Test strip Ql (U)Ord ered By: Dr. Cmapbell on 03-31-2023 Ketones Ql (U) Negative Negative [facility] Mucus LM Ql (Urine sed)Order ed By: Dr. Campbell on 03-31-2023 Mucus Ql (Urine sed) 0 SEEN /hpf [facility] Nitrite Test strip Ql (U)Ord ered By: Dr. Campbell on 03-31-2023 Nitrite Ql (U) Negative Negative [facility] Protein Test strip Ql (U)Ord ered By: Dr. Campbell on 03-31-2023 Protein Ql (U) Negative Negative [facility] Squamous epithelial cells de tection in urine sediment by light microscopyOrdered By: Dr. Campbell on 03-31-2023 Epithelial cells.squamous LM Ql (Urine sed) 5-10 SEEN /hpf 5-10 [facility] Urine blood detectionOrdered By: Dr. Campbell on 03-31-2023 RBC Ql (U) Negative Negative [facility] RBC Ql (U) 0 SEEN /hpf 0-5 [facility] Urine clarityOrdered By: Dr. Campbell on 03-31-2023 Clarity (U) Clear Clear [facility] Urine color determinationOrd ered By: Dr. Campbell on 03-31-2023 Color (U) Yellow Yellow [facility] Urine glucose detectionOrder ed By: Dr. Campbell on 03-31-2023 Glucose Ql (U) Normal mg/dl Normal [facility] Urine leukocyte esterase det ection by dipstickOrdered By: Dr. Campbell on 03-31-2023 Leukocyte esterase Test strip Ql (U) Negative Negative [facility] Urine pHOrdered By: Dr. Campbell o n 03-31-2023 pH (U) 6.0 [pH] 5.0 - 8.0 [facility] Urine sediment bacteria coun t by microscopy (number/high power field)Ordered By: Dr. Campbell on 03-31-2023 Bacteria LM.HPF (Urine sed) [#/Area] 1 /[HPF] None Seen [facility] Urine specific gravity measu rementOrdered By: Dr. Campbell on 03-31-2023 Specific gravity (U) [Rel density] 1.010 1.002-1.03 0 [facility] Urobilinogen Auto test strip Ql (U)Ordered By: Dr. Campbell on 03-31-2023 Urobilinogen Ql (U) Normal mg/dl Normal [facility] LABORATORYOrdered By: SYSTEM SYSTEM on 11-09-2022 [...] Invalid Interpretation Code 6.6 - 10.5 fL [facility] Workflow SS Platelets (Bld) [#/Vol] 167 103/mcL [...] Invalid Interpretation Code 4.5 - 10.8 10^3/mcL [facility]flow [facility] Absolute lymphocyte countOrd ered By: Dr. Benton on 10-20-2022 Lymphocytes Auto (Unsp spec) [#/Vol] 1.75 10*3/uL 0.83-4.51 [facility] Basophil percentageOrdered B y: Dr. Benton on 10-20-2022 Basophil percentage < 0.2 AI 0.0-0.9 [facility] Basophils/100 WBC (Bld) 1.0 % 0-1 [facility] Bilirubin [Mass/Vol] 0.70 mg/dL 0.20-1.00 [facility] Comment on above: For patients on eltr ombopag therapy, use of Dimension Dougherty TBIL is not recommended. Chloride [Moles/Vol] 107 mmol/L 98-107 [facility] Eosinophils/100 WBC (Bld) 1.8 % 0-5 [facility] Glucose [Mass/Vol] 89 mg/dL 74-106 [facility] Neutrophils (Bld) [#/Vol] 5.8 10*3/uL 2.0-7.7 [facility] Neutrophils/100 WBC (Bld) 68.4 % 47-70 [facility] Potassium [Moles/Vol] 4.2 mmol/L 3.5-5.1 [facility] Protein [Mass/Vol] 7.0 g/dL 6.4-8.2 [facility] Sodium [Moles/Vol] 140 mmol/L 136-145 [facility] WBC (Bld) [#/Vol] 8.4 10*3/uL 4.4-11.0 [facility] Blood erythrocytes count (nu mber/volume)Ordered By: Dr. Benton on 10-20-2022 RBC (Bld) [#/Vol] 5.49 10*6/uL 4.2-5.4 [facility] Blood hemoglobin measurement (mass/volume)Ordered By: Dr. Benton on 10-20-2022 Hemoglobin (Bld) [Mass/Vol] 15.6 g/dL 12.0-15.0 [facility] Blood lymphocytes/100 leukoc ytesOrdered By: Dr. Benton on 10-20-2022 Lymphocytes/100 WBC (Bld) 20.8 % 19-41 [facility] Blood monocytes/100 leukocyt esOrdered By: Dr. Benton on 10-20-2022 Monocytes/100 WBC (Bld) 7.5 % 0-10 [facility] Blood platelet mean volumeOr dered By: Dr. Benton on 10-20-2022 Platelet mean volume (Bld) [Entitic vol] 10.1 fL 6.2-12.0 [facility] Determination of erythrocyte mean corpuscular volume (MCV)Ordered By: Dr. Benton on 10-20-2022 MCV (RBC) [Entitic vol] 87.8 fL 81-99 [facility] Erythrocyte sedimentation ra teOrdered By: Dr. Benton on 10-20-2022 ESR (Bld) [Velocity] 19 mm/h 0-30 [facility] Hematocrit Auto (Bld) [Volum e fraction]Ordered By: Dr. Benton on 10-20-2022 Hematocrit (Bld) [Volume fraction] 48.2 % 37-47 [facility] - Chemistry and C hemistry - challengeOrdered By: Dr. Benton on 10-20-2022 ALP [Catalytic activity/Vol] 126 U/L 45-117 [facility] ALT [Catalytic activity/Vol] 18 U/L 13-56 [facility] Amylase [Catalytic activity/Vol] 22 U/L 5-55 [facility] CO2 [Moles/Vol] 28.0 mmol/L 21.0-32.0 [facility] Free T4 [Mass/Vol] 1.41 ng/dL 0.76-1.46 [facility] Globulin (S) [Mass/Vol] 3.1 g/dL 2.2-4.2 [facility] Lipase [Catalytic activity/Vol] 88 U/L 73-393 [facility] Urea nitrogen/Creatinine [Mass ratio] 20.8 mg/mg 10-20 [facility] - Hematology and Cell countsOrdered By: Dr. Benton on 10-20-2022 Erythrocyte distribution width (RBC) [Entitic vol] 47.9 fL 35.1-43.9 [facility] Erythrocyte distribution width (RBC) [Ratio] 14.9 % 11.6-14.6 [facility] Immature granulocytes/100 WBC (Bld) 0.500 % 0.0-0.9 [facility] Comment on above: IG% - Immature Granu locytes (promyelocytes, myelocytes and metamyelocytes) > 1% indicates that a LEFT SHIFT is Present. MCH (RBC) [Entitic mass] 28.4 pg 27.0-32.0 [facility] Nucleated RBC/100 WBC (Bld) [Ratio] 0 % 0-5 [facility] MCHC Auto (RBC) [Mass/Vol]Or dered By: Dr. Benton on 10-20-2022 MCHC (RBC) [Mass/Vol] 32.4 g/dL 32-36 [facility] No Panel InformationOrdered By: Dr. Benton on 10-20-2022 Centromere B Antibody <0.2 AI 0.0-0.9 [facility] Estimated GFR (MDRD) Amer 96 mL/min >60 [facility] Comment on above: GFR Calc Estimated GFR (MDRD) Non-Af Amer 79 mL/min >60 [facility] Comment on above: Non- GFR Calc [employer] Antibody <0.2 AI 0.0-0.9 [facility] Thyroid Stimulating Hormone (TSH) 1.66 uIU/mL 0.358-3.74 [facility] Vitamin D 25-Hydroxy 59.8 ng/mL [facility] Comment on above: Vitamin D 25(OH) Sta tus Range Deficiency <20 ng/mL (50nmol/L) Insufficiency 20 - 30 ng/mL (50 - 75 nmol/L) Sufficiency 30 - 100 ng/mL (75 - 250 nmol/L) Toxicity >100 ng/mL (>250 nmol/L) Platelets bldOrdered By: Dr. Benton on 10-20-2022 Platelets (Bld) [#/Vol] 197 10*3/uL 150-450 [facility] Serum DNA double strand anti body assay (units/volume)Ordered By: Dr. Benton on 10-20-2022 DNA double strand Ab Qn (S) [IU]/mL 0-9 [facility] Comment on above: Negative <5 Equivoca l 5 - 9 Positive >9 Serum Myrtle-1 antibody assay (u nits/volume)Ordered By: Dr. Benton on 10-20-2022 Myrtle-1 extractable nuclear Ab Qn (S) <0.2 AI 0.0-0.9 [facility] Serum Scl-70 extractable nuc lear antibody assay (units/volume)Ordered By: Dr. Benton on 10-20-2022 SCL-70 extractable nuclear Ab Qn (S) 0.2 AI 0.0-0.9 [facility] Serum Esperanza extractable nucl ear antibody detectionOrdered By: Dr. Benton on 10-20-2022 Esperanza extractable nuclear Ab Ql (S) <0.2 AI 0.0-0.9 [facility] Serum or plasma C reactive p rotein measurement (mass/volume)Ordered By: Dr. Benton on 10-20-2022 CRP [Mass/Vol] mg/L 0.0-3.0 [facility] Comment on above: C-Reactive Protein ( CRP) provides useful information for thediagnosis, therapy and monitoring of inflammatory processesand associated diseases. For the evaluation of Relative Riskfor Cardiovascular Disease, a High Sensitivity CRP (HSCRP)should be ordered. Serum or plasma albumin stefania urement (mass/volume)Ordered By: Dr. Benton on 10-20-2022 Albumin [Mass/Vol] 3.9 g/dL 3.2-5.0 [facility] Serum or plasma albumin/glob ulin mass ratioOrdered By: Dr. Benton on 10-20-2022 Albumin/Globulin [Mass ratio] 1.3 {ratio} 0.9-2.4 [facility] Serum or plasma calcium stefania urement (mass/volume)Ordered By: Dr. Benton on 10-20-2022 Calcium [Mass/Vol] 9.2 mg/dL 8.5-10.1 [facility] Serum or plasma creatinine m easurement (mass/volume)Ordered By: Dr. Benton on 10-20-2022 Creatinine [Mass/Vol] 0.77 mg/dL 0.55-1.02 [facility] Comment on above: The validity of the calculated GFR & GFRAA in patients over 70 years has not been determined. Clinical correlation is essential. Serum or plasma urea nitroge n measurement (mass/volume)Ordered By: Dr. Benton on 10-20-2022 Urea nitrogen [Mass/Vol] 16 mg/dL 7-18 [facility] Serum rheumatoid factor dete ctionOrdered By: Dr. Benton on 10-20-2022 Rheumatoid factor Ql (S) < 10.0 IU/mL <15 [facility] Thin prep Papanicolaou smear with manual screeningOrdered By: Dr. Benton on 10-20-2022 Thin prep Papanicolaou smear with manual screening 14 U/L 15-37 [facility] Thin prep Papanicolaou smear with manual screening 5 5-15 [facility] No Panel Informationon 05-02 Estimated GFR (MDRD) Amer 77 mL/min >60 [facility] Work Phone: Comment on above: GFR Calc Estimated GFR (MDRD) Non-Af Amer 63 mL/min >60 [facility] Work Phone: Comment on above: Non- GFR Calc Serum or plasma creatinine m easurement (mass/volume)on 05-02-2022 Creatinine [Mass/Vol] 0.94 mg/dL 0.55-1.02 [facility] Work Phone: Comment on above: The validity of the calculated GFR & GFRAA in patients over 70 years has not been determined. Clinical correlation is essential. Serum or plasma urea nitroge n measurement (mass/volume)on 05-02-2022 Urea nitrogen [Mass/Vol] 11 mg/dL 7-18 [facility] Work Phone: Absolute lymphocyte counton 02-20-2022 Lymphocytes Auto (Unsp spec) [#/Vol] 1.50 10*3/uL 0.83-4.51 [facility] Work Phone: Basophil percentageon 2021 Basophils/100 WBC (Bld) 0.3 % 0-1 [facility] Work Phone: Bilirubin [Mass/Vol] 0.20 mg/dL 0.20-1.00 [facility] Work Phone: Comment on above: For patients on eltr ombopag therapy, use of Dimension Dougherty TBIL is not recommended. Chloride [Moles/Vol] 107 mmol/L 98-107 [facility] Work Phone: Eosinophils/100 WBC (Bld) 0.8 % 0-5 [facility] Work Phone: Glucose [Mass/Vol] 97 mg/dL 74-106 [facility] Work Phone: Neutrophils (Bld) [#/Vol] 4.0 10*3/uL 2.0-7.7 [facility] Work Phone: [phone] Neutrophils/100 WBC (Bld) 65.5 % 47-70 [facility] Work Phone: [phone] Potassium [Moles/Vol] 3.5 mmol/L 3.5-5.1 [facility] Work Phone: [phone] Protein [Mass/Vol] 6.5 g/dL 6.4-8.2 [facility] Work Phone: [phone] Sodium [Moles/Vol] 142 mmol/L 136-145 [facility] Work Phone: WBC (Bld) [#/Vol] 6.2 10*3/uL 4.4-11.0 [facility] Work Phone: Blood erythrocytes count (nu mber/volume)on 02-20-2022 RBC (Bld) [#/Vol] 4.80 10*6/uL 4.2-5.[address] [facility] [facility] [address] [facility]: [phone] Blood hemoglobin measurement (mass/volume)on 02-20-2022 Hemoglobin (Bld) [Mass/Vol] 14.1 g/dL 12.0-15.0 [facility] Work Phone: [phone] Blood lymphocytes/100 leukoc yteson 02-20-2022 Lymphocytes/100 WBC (Bld) 24.4 % 19-41 [facility] Work Phone: Blood monocytes/100 leukocyt eson 02-20-2022 Monocytes/100 WBC (Bld) 8.3 % 0-10 [facility] Work Phone: Blood platelet mean volumeon 02-20-2022 Platelet mean volume (Bld) [Entitic vol] 10.0 fL 6.2-12.0 [facility] Work Phone: Determination of erythrocyte mean corpuscular volume (MCV)on 02-20-2022 MCV (RBC) [Entitic vol] 90.6 fL 81-99 [facility] Work Phone: Direct bilirubinon 2 Bilirubin.direct [Mass/Vol] 0.10 mg/dL 0.00-0.30 [facility] Work Phone: Hematocrit Auto (Bld) [Volum e fraction]on 02-20-2022 Hematocrit (Bld) [Volume fraction] 43.5 % 37-47 [facility] Work Phone: [phone] INR in Blood by Coagulation assayon 02-20-2022 INR Coag (Bld) [Relative time] 1.0 {INR} [facility] Work Phone: Laboratory - Chemistry and C hemistry - challengeon 02-20-2022 ALP [Catalytic activity/Vol] 97 U/L 45-117 [facility] Work Phone: ALT [Catalytic activity/Vol] 18 U/L 13-56 [facility] Work Phone: CO2 [Moles/Vol] 30.0 mmol/L 21.0-32.0 [facility] Work Phone: Globulin (S) [Mass/Vol] 3.2 g/dL 2.2-4.2 [facility] Work Phone: Lipase [Catalytic activity/Vol] 38 U/L 73-393 [facility] Work Phone: Urea nitrogen/Creatinine [Mass ratio] 17.8 mg/mg 10-20 [facility] Work Phone: Laboratory - Coagulationon 0 02-20-2022 PT Coag (PPP) [Time] 12.3 s 11.7-14.9 [facility] Work Phone: Laboratory - Hematology and Cell countson 02-20-2022 Erythrocyte distribution width (RBC) [Entitic vol] 45.6 fL 35.1-43.9 [facility] Work Phone: Erythrocyte distribution width (RBC) [Ratio] 13.7 % 11.6-14.6 [facility] Work Phone: Immature granulocytes/100 WBC (Bld) 0.700 % 0.0-0.9 [facility] Work Phone: Comment on above: IG% - Immature Granu locytes (promyelocytes, myelocytes and metamyelocytes) > 1% indicates that a LEFT SHIFT is Present. MCH (RBC) [Entitic mass] 29.4 pg 27.0-32.0 [facility] Work Phone: Nucleated RBC/100 WBC (Bld) [Ratio] 0 % 0-5 [facility] Work Phone: MCHC Auto (RBC) [Mass/Vol]on 02-20-2022 MCHC (RBC) [Mass/Vol] 32.4 g/dL 32-36 [facility] Work Phone: No Panel Informationon 02-20 Estimated Creatinine Clearance Calc 59.57 ml/min [facility] Work Phone: Estimated GFR (MDRD) Amer 86 mL/min >60 [facility] Work Phone: Comment on above: GFR Calc Estimated GFR (MDRD) Non-Af Amer 71 mL/min >60 [facility] Work Phone: Comment on above: Non- GFR Calc Troponin I High Sensitivity 4 pg/mL 3.0-54.0 [facility] Work Phone: Comment on above: Please Note: New Kim t Units and Gender Specific Reference Ranges. For more information see Policy Stat Procedure Dougherty High Sensitivity Troponin (TNIH) and attachments. Platelets bldon 02-20-2022 Platelets (Bld) [#/Vol] 171 10*3/uL 150-450 [facility] Work Phone: Serum or plasma albumin stefania urement (mass/volume)on 02-20-2022 Albumin [Mass/Vol] 3.3 g/dL 3.2-5.0 [facility] Work Phone: Serum or plasma calcium stefania urement (mass/volume)on 02-20-2022 Calcium [Mass/Vol] 8.7 mg/dL 8.5-10.1 [facility] Work Phone: Serum or plasma creatinine m easurement (mass/volume)on 02-20-2022 Creatinine [Mass/Vol] 0.84 mg/dL 0.55-1.02 [facility] Work Phone: Comment on above: The validity of the calculated GFR & GFRAA in patients over 70 years has not been determined. Clinical correlation is essential. Serum or plasma urea nitroge n measurement (mass/volume)on 02-20-2022 Urea nitrogen [Mass/Vol] 15 mg/dL 7-18 [facility] Work Phone: Thin prep Papanicolaou smear with manual screeningon 02-20-2022 Thin prep Papanicolaou smear with manual screening 11 U/L 15-37 [facility] Work Phone: Thin prep Papanicolaou smear with manual screening 5 5-15 [facility] Work Phone: Absolute lymphocyte counton 02-18-2022 Lymphocytes Auto (Unsp spec) [#/Vol] 1.64 10*3/uL 0.83-4.51 [facility] Work Phone: Basophil percentageon 2021 Basophils/100 WBC (Bld) 0.9 % 0-1 [facility] Work Phone: Chloride [Moles/Vol] 108 mmol/L 98-107 [facility] Work Phone: Eosinophils/100 WBC (Bld) 3.1 % 0-5 [facility] Work Phone: Glucose [Mass/Vol] 112 mg/dL 74-106 [facility] Work Phone: Comment on above: Fasting Glucose resu lt from 100 to 125 mg/dL suggests IMPAIRED HOMEOSTASIS per A.D.A. criteria. Neutrophils (Bld) [#/Vol] 3.8 10*3/uL 2.0-7.7 [facility] Work Phone: Neutrophils/100 WBC (Bld) 58.7 % 47-70 [facility] Work Phone: Potassium [Moles/Vol] 3.6 mmol/L 3.5-5.1 [facility] Work Phone: Sodium [Moles/Vol] 141 mmol/L 136-145 [facility] Work Phone: WBC (Bld) [#/Vol] 6.4 10*3/uL 4.4-11.0 [facility] Work Phone: Blood erythrocytes count (nu mber/volume)on 02-18-2022 RBC (Bld) [#/Vol] 5.18 10*6/uL 4.2-5.[address] [facility] Work Phone: Blood hemoglobin measurement (mass/volume)on 02-18-2022 Hemoglobin (Bld) [Mass/Vol] 15.0 g/dL 12.0-15.0 [facility] Work Phone: Blood lymphocytes/100 leukoc yteson 02-18-2022 Lymphocytes/100 WBC (Bld) 25.5 % 19-41 [facility] Work Phone: Blood monocytes/100 leukocyt eson 02-18-2022 Monocytes/100 WBC (Bld) 11.2 % 0-10 [facility] Work Phone: Blood platelet mean volumeon 02-18-2022 Platelet mean volume (Bld) [Entitic vol] 9.8 fL 6.2-12.0 [facility] Work Phone: Determination of erythrocyte mean corpuscular volume (MCV)on 02-18-2022 MCV (RBC) [Entitic vol] 88.2 fL 81-99 [facility] Work Phone: Hematocrit Auto (Bld) [Volum e fraction]on 02-18-2022 Hematocrit (Bld) [Volume fraction] 45.7 % 37-47 [facility] Work Phone: INR in Blood by Coagulation assayon 02-18-2022 INR Coag (Bld) [Relative time] 1.0 {INR} [facility] Work Phone: Laboratory - Chemistry and C hemistry - challengeon 02-18-2022 CO2 [Moles/Vol] 29.0 mmol/L 21.0-32.0 [facility] Work Phone: Magnesium [Mass/Vol] 2.1 mg/dL 1.6-2.6 [facility] Work Phone: Urea nitrogen/Creatinine [Mass ratio] 13.9 mg/mg 10-20 [facility] Work Phone: Laboratory - Coagulationon 0 02-18-2022 aPTT Coag (Bld) [Time] 28.9 s 24.1-36.2 [facility] Work Phone: PT Coag (PPP) [Time] 12.6 s 11.7-14.9 [facility] Work Phone: Laboratory - Hematology and Cell countson 02-18-2022 Erythrocyte distribution width (RBC) [Entitic vol] 43.7 fL 35.1-43.9 [facility] Work Phone: Erythrocyte distribution width (RBC) [Ratio] 13.5 % 11.6-14.6 [facility] Work Phone: Immature granulocytes/100 WBC (Bld) 0.600 % 0.0-0.9 [facility] Work Phone: Comment on above: IG% - Immature Granu locytes (promyelocytes, myelocytes and metamyelocytes) > 1% indicates that a LEFT SHIFT is Present. MCH (RBC) [Entitic mass] 29.0 pg 27.0-32.0 [facility] Work Phone: Nucleated RBC/100 WBC (Bld) [Ratio] 0 % 0-5 [facility] Work Phone: MCHC Auto (RBC) [Mass/Vol]on 02-18-2022 MCHC (RBC) [Mass/Vol] 32.8 g/dL 32-36 [facility] Work Phone: No Panel Informationon 02-18 Troponin I High Sensitivity 5 pg/mL 3.0-54.0 [facility] Work Phone: Comment on above: Please Note: New Kim t Units and Gender Specific Reference Ranges. For more information see Policy Stat Procedure [place]herty High Sensitivity Troponin (TNIH) and attachments. Estimated Creatinine Clearance Calc 51.11 ml/min [facility] Work Phone: Estimated GFR (MDRD) Amer 93 mL/min >60 [facility] Work Phone: Comment on above: GFR Calc Estimated GFR (MDRD) Non-Af Amer 77 mL/min >60 [facility] Work Phone: Comment on above: Non- GFR Calc Platelets bldon 02-18-2022 Platelets (Bld) [#/Vol] 207 10*3/uL 150-450 [facility] Work Phone: Serum or plasma calcium stefania urement (mass/volume)on 02-18-2022 Calcium [Mass/Vol] 8.8 mg/dL 8.5-10.1 [facility] Work Phone: Serum or plasma creatinine m easurement (mass/volume)on 02-18-2022 Creatinine [Mass/Vol] 0.79 mg/dL 0.55-1.02 [facility] Work Phone: Comment on above: The validity of the calculated GFR & GFRAA in patients over 70 years has not been determined. Clinical correlation is essential. Serum or plasma urea nitroge n measurement (mass/volume)on 02-18-2022 Urea nitrogen [Mass/Vol] 11 mg/dL 7-18 [facility] Work Phone: Thin prep Papanicolaou smear with manual screeningon 02-18-2022 Thin prep Papanicolaou smear with manual screening 4 5-15 [facility] Work Phone: Basophil percentageon 2021 Basophil percentage 4.4 mg/dL 2.5-4.9 [facility] Work Phone: Chloride [Moles/Vol] 106 mmol/L 98-107 [facility] Work Phone: Glucose [Mass/Vol] 92 mg/dL 74-106 [facility] Work Phone: Potassium [Moles/Vol] 3.9 mmol/L 3.5-5.1 [facility] Work Phone: Sodium [Moles/Vol] 141 mmol/L 136-145 [facility] Work Phone: WBC (Bld) [#/Vol] 7.7 10*3/uL 4.4-11.0 [facility] Work Phone: Blood erythrocytes count (nu mber/volume)on 01-18-2022 RBC (Bld) [#/Vol] 5.55 10*6/uL 4.2-5.4 [facility] Work Phone: Blood hemoglobin measurement (mass/volume)on 01-18-2022 Hemoglobin (Bld) [Mass/Vol] 16.9 g/dL 12.0-15.0 [facility] Work Phone: Blood platelet mean volumeon 01-18-2022 Platelet mean volume (Bld) [Entitic vol] 9.7 fL 6.2-12.0 [facility] Work Phone: Determination of erythrocyte mean corpuscular volume (MCV)on 01-18-2022 MCV (RBC) [Entitic vol] 90.5 fL 81-99 [facility] Work Phone: Hematocrit Auto (Bld) [Volum e fraction]on 01-18-2022 Hematocrit (Bld) [Volume fraction] 50.2 % 37-47 [facility] Work Phone: Laboratory - Chemistry and C hemistry - challengeon 01-18-2022 CO2 [Moles/Vol] 31.0 mmol/L 21.0-32.0 [facility] Work Phone: Urea nitrogen/Creatinine [Mass ratio] 18.6 mg/mg 10-20 [facility] Work Phone: Laboratory - Hematology and Cell countson 01-18-2022 Erythrocyte distribution width (RBC) [Entitic vol] 46.6 fL 35.1-43.9 [facility] Work Phone: Erythrocyte distribution width (RBC) [Ratio] 13.8 % 11.6-14.6 [facility] Work Phone: MCH (RBC) [Entitic mass] 30.5 pg 27.0-32.0 [facility] Work Phone: MCHC Auto (RBC) [Mass/Vol]on 01-18-2022 MCHC (RBC) [Mass/Vol] 33.7 g/dL 32-36 [facility] Work Phone: No Panel Informationon 01-18 Estimated Creatinine Clearance Calc 50.37 ml/min [facility] Work Phone: Estimated GFR (MDRD) Amer 74 mL/min >60 [facility] Work Phone: Comment on above: GFR Calc Estimated GFR (MDRD) Non-Af Amer 61 mL/min >60 [facility] Work Phone: Comment on above: Non- GFR Calc Platelets bldon 01-18-2022 Platelets (Bld) [#/Vol] 233 10*3/uL 150-450 [facility] Work Phone: Serum or plasma albumin stefania urement (mass/volume)on 01-18-2022 Albumin [Mass/Vol] 3.6 g/dL 3.2-5.0 [facility] Work Phone: Serum or plasma calcium stefania urement (mass/volume)on 01-18-2022 Calcium [Mass/Vol] 9.2 mg/dL 8.5-10.1 [facility] Work Phone: Serum or plasma creatinine m easurement (mass/volume)on 01-18-2022 Creatinine [Mass/Vol] 0.97 mg/dL 0.55-1.02 [facility] Work Phone: Comment on above: The validity of the calculated GFR & GFRAA in patients over 70 years has not been determined. Clinical correlation is essential. Serum or plasma urea nitroge n measurement (mass/volume)on 01-18-2022 Urea nitrogen [Mass/Vol] 18 mg/dL 7-18 [facility] Work Phone: Basophil percentageon 2020 Creatinine [Mass/Vol] 0.8 mg/dL 0.55-1.02 [facility] Work Phone: No Panel Informationon 11-17 Bedside Estimated GFR (eGFR) > 60.0000 mL/min >60 [facility] Work Phone: MRI BRAIN WO/W IVCONon [...] Improvement: None. New Enhancing Lesions: None T2 [place] of Disease: Mild. Parenchymal Volume Loss: None. [...] by greater than or equal to 2mm). Gallery Or Museum Technician: CAROLINE Transcribe Date/Time: Apr 12 2021 2:27P Dictated by : MELIZA MOMIN MD This examination was interpreted and the report reviewed and electronically signed by: MELIZA MOMIN MD on Apr 12 2021 2:33PM EST [id number] Normal [facility] CNOVon 02-09-2021 CNOV Office Visit (UCWSTR ) ----- ANGÉLICA YO ([id number]) 1955 F Date Time Provider Department 02/09/21 3:00 PM MELI GORE WSTR During your visit today, we [...] 03/12/2019 2 - Rash ANTIHISTAMINES 04/28/2004 Comments: "messes her head up" ASA (SALICYLATES) 12/04/2008 CODEINE 04/28/2004 Comments: nausea FENTANYL 02/19/2012 14 - Other: See Comments Comments: Sweating/ Flushing MORPHINE 04/28/2004 Comments: nausea and vomiting PLAVIX (CLOPIDOGREL BISULFATE) 12/18/2011 14 - Other: See Comments Comments: Heartburn PREDNISONE 12/15/2008 Comments: Destroyed bone. KORUTRZ-DET-ZZU REDUCTASE INHIBIT*04/27/2011 5 - Intolerance TRICOR (FENOFIBRATE [...] by MELI GORE MD on 02/09/21 Normal [facility] XR Chest PA and Lateralon IMPRESSION: Trace linear atelectasis at the left base. Gallery Or Museum Technician: CAROLINE Transcribe Date/Time: Nov 25 2020 3:18P Dictated by : JOHANA DEUTSCH MD This examination was interpreted and the report reviewed and electronically signed by: JOHANA DEUTSCH MD on Nov 25 2020 3:19PM [facility] DIVISION OF RADIOLOGY * * *Final Report* [...] Trace linear atelectasis at the left base. Gallery Or Museum Technician: CAROLINE Transcribe Date/Time: Nov 25 2020 3:18P Dictated by : JOHANA DEUTSCH MD This examination was interpreted and the report reviewed and electronically signed by: JOHANA DEUTSCH MD on Nov 25 2020 3:19PM EST [facility] Radiology Study observation (narrative) Deangelo llanos [facility] XR Chest PA and LateralOrder ed By: [facility] Provider on 11-25-2020 [facility] PROGRESSon 12-22-2017 PROGRESS HNO ID: [id number] thor: Yogesh Hartley: (none)Author Type: PhysicianType: Progress [...] At this point in time she tells serae is told that she has had some [...] visit, with more than50% of the total tjtn-fl-wjtw time of the visit in counseling /coordination of care. Normal [facility] CNOVon 12-21-2017 CNOV Office Visit (AGMIL) ANGÉLICA YO ([id number]) 1955 FDate Time Provider Department12/21/17 10:30 AM [...] be primarily managing these problems here in [place]. At this point in timeI tell her [...] with more than 50% of the total vley-ho-ocehdtjx of the visit in counseling / coordination of care.Referring Provider: ZHANE PARRA [[id number]]Allergies As of Date: 12/21/2017 Noted Allergy ReactionANTIHISTAMINES 04/28/2004 Comments: "messes her head up"ASA (SALICYLATES) 12/04/2008CODEINE 04/28/2004 Comments: nauseaFENTANYL 02/19/2012 14 - Other: See Comments Comments: Sweating/ FlushingMORPHINE 04/28/2004 Comments: nausea and vomitingPLAVIX (CLOPIDOGREL BISULFATE) 12/18/2011 14 - Other: See Comments Comments: HeartburnPREDNISONE 12/15/2008 Comments: Destroyed bone.DPWOGMP-TRC-PBL REDUCTASE INHIBIT*04/27/2011 5 - IntoleranceTRICOR (FENOFIBRATE MICRONIZED) [...] vascular occlusive disease (HCC) [I7*Letter TextEncounter Number: [id number] Status:Closed by YOGESH ONOFRE MD on 12/22/17 [facility] Vital Signs Date Time Vital Sign Value Performing Clinician Faci lity 09-19-2025 00:48-0400 Body temperature 97.8 [degF] Dr. Daron Benton MD Work Phone: 1(762)412-558002 [place] [address] 09-19-2025 00:48-0400 Diastolic blood pressure 72 mm[Hg] Dr. Daron Benton MD Work Phone: 5(900)401-547912 [place] [address] 09-19-2025 00:48-0400 Heart rate 68 /min Dr. Daron Benton MD Work Phone: 2(857)611-835712 [place] [address] 09-19-2025 00:48-0400 Respiratory rate 16 /min Dr. Daron Benton MD Work Phone: 6(776)593-985412 [place] [address] 09-19-2025 00:48-0400 SaO2% (BldA) [Mass fraction] 96 % Dr. Daron Bentno MD Work Phone: 5(856)416-797612 [place] [address] 09-19-2025 00:48-0400 Systolic blood pressure 179 mm[Hg] Dr. Daron Benton MD Work Phone: 7(216)850-138802 [place] [address] 09-18-2025 23:48-0400 Body height 165.[address] Daron Benton MD Work Phone: 8(546)803-643412 [place] [address] 09-18-2025 23:48-0400 Body mass index (BMI) [Ratio] 20.6 kg/m2 Dr. Daron Benton MD Work Phone: 6(057)513-946512 [place] [address] 09-18-2025 23:48-0400 Body weight 56.[address] Daron Benton MD Work Phone: 4(061)063-422902 [place] [address] 08-12-2025 22:41-0400 Body temperature 97.8 [degF] Dr. Daron Benton MD Work Phone: 2(986)154-470512 [place] [address] 08-12-2025 22:41-0400 Diastolic blood pressure 81 mm[Hg] Dr. Daron Benton MD Work Phone: 3(017)551-517302 [place] [address] 08-12-2025 22:41-0400 Heart rate 84 /min Dr. Daron Benton MD Work Phone: 9(384)555-250412 [place] [address] 08-12-2025 22:41-0400 Respiratory rate 17 /min Dr. Daron Benton MD Work Phone: [facility] 08-12-2025 22:41-0400 SaO2% (BldA) [Mass fraction] 98 % Dr. Daron Benton MD Work Phone: 6(323)184-991112 [place] [address] 08-12-2025 22:41-0400 Systolic blood pressure 165 mm[Hg] Dr. Daron Benton MD Work Phone: 8(181)256-676012 [place] [address] 08-12-2025 03:05-0400 Body mass index (BMI) [Ratio] 18.3 kg/m2 Dr. Daron Benton MD Work Phone: 9(850)074-300702 [place] [address] 08-12-2025 03:05-0400 Body weight [address] Daron Benton MD Work Phone: 6(310)281-552612 [place] [address] 08-11-2025 12:54-0400 Body height 165.[address] Daron Benton MD Work Phone: 2(464)808-065312 [place] [address] 08-11-2025 09:27-0400 Inhaled oxygen flow rate 2 L/min Dr. Daron Benton MD Work Phone: 8(371)623-019512 [place] [address] 08-06-2025 04:21-0400 Body temperature 98 [degF] Dr. Daron Benton MD Work Phone: 8(124)657-690512 [place] [address] 08-06-2025 04:21-0400 Diastolic blood pressure 71 mm[Hg] Dr. Daron Benton MD Work Phone: 2(858)604-581212 [place] [address] 08-06-2025 04:21-0400 Heart rate 55 /min Dr. Daron Benton MD Work Phone: 6(381)868-646454 [address] 08-06-2025 04:21-0400 Respiratory rate 12 /min Dr. Daron Benton MD Work Phone: 8(321)358-143202 [place] [address] 08-06-2025 04:21-0400 SaO2% (BldA) [Mass fraction] 94 % Dr. Daron Benton MD Work Phone: 7(516)441-539502 [place] [address] 08-06-2025 04:21-0400 Systolic blood pressure 165 mm[Hg] Dr. Daron Benton MD Work Phone: 9(621)266-994912 [place] [address] 08-06-2025 01:30-0400 Inhaled oxygen flow rate 3 L/min Dr. Daron Benton MD Work Phone: 3(040)722-712512 [place] [address] 08-05-2025 20:54-0400 Body height 165.[address] Daron Benton MD Work Phone: 9(442)419-734212 [place] [address] 08-05-2025 20:54-0400 Body mass index (BMI) [Ratio] 19.1 kg/m2 Dr. Daron Benton MD Work Phone: 8(881)385-802512 [place] [address] 08-05-2025 20:54-0400 Body weight 52.[address] Daron Benton MD Work Phone: 7(318)164-999312 [place] [address] 08-05-2025 07:47-0400 Body mass index (BMI) [Ratio] 18.4 kg/m2 Dr. Daron Benton MD Work Phone: 7(859)055-555412 [place] [address] 08-05-2025 07:47-0400 Body weight 50.[address] Daron Benton MD Work Phone: 7(928)118-509512 [place] [address] 08-05-2025 07:47-0400 Diastolic blood pressure 71 mm[Hg] Dr. Daron Benton MD Work Phone: 4(623)316-567012 [place] [address] 08-05-2025 07:47-0400 Heart rate 48 /min Dr. Daron Benton MD Work Phone: 9(434)811-895712 [place] [address] 08-05-2025 07:47-0400 Respiratory rate 18 /min Dr. Daron Benton MD Work Phone: 6(138)585-011412 [place] [address] 08-05-2025 07:47-0400 SaO2% (BldA) [Mass fraction] 100 % Dr. Daron Benton MD Work Phone: 8(740)988-748612 [place] [address] 08-05-2025 07:47-0400 Systolic blood pressure 112 mm[Hg] Dr. Daron Benton MD Work Phone: 1(611)975-265712 [place] [address] 08-01-2025 00:36-0400 Body temperature 97.8 [degF] Dr. Daron Benton MD Work Phone: [facility] 08-01-2025 00:36-0400 Diastolic blood pressure 72 mm[Hg] Dr. Daron Benton MD Work Phone: [facility] 08-01-2025 00:36-0400 Heart rate 54 /min Dr. Daron Benton MD Work Phone: [facility] 08-01-2025 00:36-0400 Respiratory rate 14 /min Dr. Daron Benton MD Work Phone: [facility] 08-01-2025 00:36-0400 SaO2% (BldA) [Mass fraction] 95 % Dr. Daron Benton MD Work Phone: [facility] 08-01-2025 00:36-0400 Systolic blood pressure 135 mm[Hg] Dr. Daron Benton MD Work Phone: [facility] 07-31-2025 21:02-0400 Body height 165.[address] Daron Benton MD Work Phone: [facility] 07-31-2025 21:02-0400 Body mass index (BMI) [Ratio] 18.1 kg/m2 Dr. Daron Benton MD Work Phone: [facility] 07-31-2025 21:02-0400 Body weight 49.[address] Daron Benton MD Work Phone: [facility] 07-23-2025 12:31-0400 Body height 167.6 cm Lizz Ayala JUNIOR SOFTWARE ENGINEER Work Phone: [facility] 07-23-2025 12:31-0400 Body mass index (BMI) [Ratio] 17.11 kg/m2 Lizz Lynn APRN - JUNIOR SOFTWARE ENGINEER Work Phone: [facility] 07-23-2025 12:31-0400 Body weight 48.08 kg Lizz Lynn APRN - JUNIOR SOFTWARE ENGINEER Work Phone: [facility] 07-23-2025 12:31-0400 Diastolic blood pressure 64 mm[Hg] Lizz Lynn ROASTER OPERATOR - JUNIOR SOFTWARE ENGINEER Work Phone: [facility] 07-23-2025 12:31-0400 Heart rate 47 /min Lizz Lynn ROASTER OPERATOR - JUNIOR SOFTWARE ENGINEER Work Phone: [facility] 07-23-2025 12:31-0400 Systolic blood pressure 103 mm[Hg] Lizz Robert ROASTER OPERATOR - JUNIOR SOFTWARE ENGINEER Work Phone: [facility] 07-23-2025 00:50-0400 Body temperature 98.2 [degF] Dr. Daron Benton MD Work Phone: [facility] 07-23-2025 00:50-0400 Diastolic blood pressure 74 mm[Hg] Dr. Daron Benton MD Work Phone: [facility] 07-23-2025 00:50-0400 Heart rate 70 /min Dr. Daron Benton MD Work Phone: [facility] 07-23-2025 00:50-0400 Respiratory rate 18 /min Dr. Daron Benton MD Work Phone: [facility] 07-23-2025 00:50-0400 SaO2% (BldA) [Mass fraction] 97 % Dr. Daron Benton MD Work Phone: [facility] 07-23-2025 00:50-0400 Systolic blood pressure 135 mm[Hg] Dr. Daron Benton MD Work Phone: [facility] 07-22-2025 21:56-0400 Body height 165.[address] Daron Benton MD Work Phone: [facility] 07-22-2025 21:56-0400 Body mass index (BMI) [Ratio] 18.1 kg/m2 Dr. Daron Benton MD Work Phone: [facility] 07-22-2025 21:56-0400 Body weight 49.[address] Daron Benton MD Work Phone: [facility] 07-05-2025 23:28-0400 Body temperature 98.6 [degF] Dr. Daron Benton MD Work Phone: 9(726)160-451902 [place] [address] 07-05-2025 23:28-0400 Diastolic blood pressure 99 mm[Hg] Dr. Daron Benton MD Work Phone: 1(860)249-928812 [place] [address] 07-05-2025 23:28-0400 Heart rate 76 /min Dr. Daron Benton MD Work Phone: 4(879)743-474212 [place] [address] 07-05-2025 23:28-0400 Respiratory rate 16 /min Dr. Daron Benton MD Work Phone: 5(413)692-916612 [place] [address] 07-05-2025 23:28-0400 SaO2% (BldA) [Mass fraction] 100 % Dr. Daron Benton MD Work Phone: 6(184)371-866912 [place] [address] 07-05-2025 23:28-0400 Systolic blood pressure 148 mm[Hg] Dr. Daron Benton MD Work Phone: 9(310)311-597912 [place] [address] 07-05-2025 20:54-0400 Body mass index (BMI) [Ratio] 18 kg/m2 Dr. Daron Benton MD Work Phone: 1(072)431-307612 [place] [address] 07-05-2025 20:54-0400 Body weight 49.[address] Daron Benton MD Work Phone: 6(131)641-991412 [place] [address] 07-05-2025 20:39-0400 Body height 165.[address] Daron Benton MD Work Phone: 6(888)565-713312 [place] [address] 06-09-2025 18:11-0400 Diastolic blood pressure 97 mm[Hg] Dr. Daron Benton MD Work Phone: 0(794)210-447412 [place] [address] 06-09-2025 18:11-0400 Systolic blood pressure 194 mm[Hg] Dr. Daron Benton MD Work Phone: 2(860)321-358512 [place] [address] 06-09-2025 16:33-0400 Body temperature 98 [degF] Dr. Daron Benton MD Work Phone: 1(902)471-743212 [place] [address] 06-09-2025 16:33-0400 Heart rate 70 /min Dr. Daron Benton MD Work Phone: 1(159)083-530602 [place] [address] 06-09-2025 16:33-0400 Respiratory rate 14 /min Dr. Daron Benton MD Work Phone: 5(711)358-262012 [place] [address] 06-09-2025 16:33-0400 SaO2% (BldA) [Mass fraction] 99 % Dr. Daron Benton MD Work Phone: 0(916)301-985012 [place] [address] 06-09-2025 08:15-0400 Inhaled oxygen flow rate 2 L/min Dr. Daron Benton MD Work Phone: 4(913)996-597312 [place] [address] 06-09-2025 05:43-0400 Body mass index (BMI) [Ratio] 18.1 kg/m2 Dr. Daron Benton MD Work Phone: 2(528)373-544812 [place] [address] 06-09-2025 05:43-0400 Body weight 49.[address] Daron Benton MD Work Phone: 3(646)523-179212 [place] [address] 06-07-2025 12:32-0400 Body height 165.[address] Daron Benton MD Work Phone: 1(630)990-016412 [place] [address] 06-03-2025 08:00-0400 Body temperature 96.8 [degF] Dr. Daron Benton MD Work Phone: 1(921)955-553912 [place] [address] 06-03-2025 08:00-0400 Diastolic blood pressure 62 mm[Hg] Dr. Daron Benton MD Work Phone: 8(691)074-001712 [place] [address] 06-03-2025 08:00-0400 Heart rate 82 /min Dr. Daron Benton MD Work Phone: 4(317)530-471912 [place] [address] 06-03-2025 08:00-0400 Respiratory rate 16 /min Dr. Daron Benton MD Work Phone: 7(167)891-394612 [place] [address] 06-03-2025 08:00-0400 SaO2% (BldA) [Mass fraction] 100 % Dr. Daron Benton MD Work Phone: 8(355)609-855912 [place] [address] 06-03-2025 08:00-0400 Systolic blood pressure 103 mm[Hg] Dr. Daron Benton MD Work Phone: 4(274)672-208402 [place] [address] 06-03-2025 07:37-0400 Inhaled oxygen flow rate 3 L/min Dr. Daron Benton MD Work Phone: 5(526)122-699412 [place] [address] 06-03-2025 02:30-0400 Body height 167.[address] Daron Benton MD Work Phone: 8(348)527-409612 [place] [address] 06-03-2025 02:30-0400 Body mass index (BMI) [Ratio] 17.7 kg/m2 Dr. Daron Benton MD Work Phone: 5(840)791-069212 [place] [address] 06-03-2025 02:30-0400 Body weight 49.[address] Daron Benton MD Work Phone: 0(044)608-245412 [place] [address] 05-19-2025 23:37-0400 Body temperature 97.8 [degF] Dr. Daron Benton MD Work Phone: 8(796)243-286712 [place] [address] 05-19-2025 23:37-0400 Diastolic blood pressure 61 mm[Hg] Dr. Daron Benton MD Work Phone: 1(959)622-193612 [place] [address] 05-19-2025 23:37-0400 Heart rate 75 /min Dr. Daron Benton MD Work Phone: 4(059)738-031712 [place] [address] 05-19-2025 23:37-0400 Respiratory rate 16 /min Dr. Daron Benton MD Work Phone: 8(420)149-911712 [place] [address] 05-19-2025 23:37-0400 SaO2% (BldA) [Mass fraction] 96 % Dr. Daron Benton MD Work Phone: 3(943)117-006412 [place] [address] 05-19-2025 23:37-0400 Systolic blood pressure 138 mm[Hg] Dr. Daron Benton MD Work Phone: 0(555)003-670712 [place] [address] 05-19-2025 22:26-0400 Body mass index (BMI) [Ratio] 17.8 kg/m2 Dr. Daron Benton MD Work Phone: 8(608)505-024112 [place] [address] 05-19-2025 22:26-0400 Body weight [address] Daron Benton MD Work Phone: [facility] 05-19-2025 20:46-0400 Body height 167.[address] Daron Benton MD Work Phone: [facility] 05-06-2025 14:44-0400 Body height 165.[address] Daron Benton MD Work Phone: 8(307)834-712202 [place] [address] 05-06-2025 14:44-0400 Body mass index (BMI) [Ratio] 18.3 kg/m2 Dr. Daron Benton MD Work Phone: 7(793)561-122012 [place] [address] 05-06-2025 14:44-0400 Body temperature 97.5 [degF] Dr. Daron Benton MD Work Phone: 7(939)656-999112 [place] [address] 05-06-2025 14:44-0400 Body weight 49.[address] Daron Benton MD Work Phone: 5(059)933-169012 [place] [address] 05-06-2025 14:44-0400 Diastolic blood pressure 79 mm[Hg] Dr. Daron Benton MD Work Phone: 1(098)232-002912 [place] [address] 05-06-2025 14:44-0400 Heart rate 74 /min Dr. Daron Benton MD Work Phone: 1(029)114-970312 [place] [address] 05-06-2025 14:44-0400 Respiratory rate 16 /min Dr. Daron Benton MD Work Phone: 4(620)732-646802 [place] [address] 05-06-2025 14:44-0400 SaO2% (BldA) [Mass fraction] 98 % Dr. Daron Benton MD Work Phone: 8(778)326-662302 [place] [address] 05-06-2025 14:44-0400 Systolic blood pressure 163 mm[Hg] Dr. Daron Benton MD Work Phone: 9(576)753-493812 [place] [address] 04-22-2025 14:14-0400 Body temperature 97.7 [degF] Dr. Daron Benton MD Work Phone: 7(252)821-554802 [place] [address] 04-22-2025 14:14-0400 Diastolic blood pressure 74 mm[Hg] Dr. Daron Benton MD Work Phone: 7(528)783-297802 [place] [address] 04-22-2025 14:14-0400 Heart rate 124 /min Dr. Daron Benton MD Work Phone: 2(000)617-091212 [place] [address] 04-22-2025 14:14-0400 Respiratory rate 18 /min Dr. Daron Benton MD Work Phone: 1(990)455-726012 [place] [address] 04-22-2025 14:14-0400 SaO2% (BldA) [Mass fraction] 94 % Dr. Daron Benton MD Work Phone: 5(974)118-298012 [place] [address] 04-22-2025 14:14-0400 Systolic blood pressure 101 mm[Hg] Dr. Daron Benton MD Work Phone: 6(642)594-915412 [place] [address] 04-21-2025 15:30-0400 Body height 165.[address] Daron Benton MD Work Phone: 5(349)210-617412 [place] [address] 04-21-2025 15:30-0400 Body mass index (BMI) [Ratio] 16.7 kg/m2 Dr. Daron Benton MD Work Phone: 0(280)356-974112 [place] [address] 04-21-2025 15:30-0400 Body weight 45.[address] Daron Benton MD Work Phone: 1(782)899-312312 [place] [address] 04-18-2025 21:23-0400 Body temperature 98.9 [degF] Dr. Daron Benton MD Work Phone: 8(937)054-594712 [place] [address] 04-18-2025 21:23-0400 Diastolic blood pressure 79 mm[Hg] Dr. Daron Benton MD Work Phone: 9(419)535-089712 [place] [address] 04-18-2025 21:23-0400 Heart rate 62 /min Dr. Daron Benton MD Work Phone: 5(752)351-031512 [place] [address] 04-18-2025 21:23-0400 Respiratory rate 21 /min Dr. Daorn Benton MD Work Phone: 3(643)019-288512 [place] [address] 04-18-2025 21:23-0400 SaO2% (BldA) [Mass fraction] 100 % Dr. Daron Benton MD Work Phone: 0(506)332-701012 [place] [address] 04-18-2025 21:23-0400 Systolic blood pressure 141 mm[Hg] Dr. Daron Benton MD Work Phone: 9(494)277-412012 [place] [address] 04-18-2025 18:17-0400 Body height 165.[address] Daron Benton MD Work Phone: 6(834)487-653512 [place] [address] 04-18-2025 18:17-0400 Body mass index (BMI) [Ratio] 16.9 kg/m2 Dr. Daron Benton MD Work Phone: 3(238)825-947112 [place] [address] 04-18-2025 18:17-0400 Body weight 46.[address] Daron Benton MD Work Phone: 6(589)390-389312 [place] [address] 04-18-2025 01:13-0400 Body temperature 97.7 [degF] Dr. Daron Benton MD Work Phone: 7(844)250-960112 [place] [address] 04-18-2025 01:13-0400 Diastolic blood pressure 68 mm[Hg] Dr. Daron Benton MD Work Phone: 8(369)025-349012 [place] [address] 04-18-2025 01:13-0400 Heart rate 68 /min Dr. Daron Benton MD Work Phone: 8(847)668-615912 [place] [address] 04-18-2025 01:13-0400 Respiratory rate 16 /min Dr. Daron Benton MD Work Phone: 8(089)821-979912 [place] [address] 04-18-2025 01:13-0400 SaO2% (BldA) [Mass fraction] 100 % Dr. Daron Benton MD Work Phone: 5(494)214-283712 [place] [address] 04-18-2025 01:13-0400 Systolic blood pressure 130 mm[Hg] Dr. Daron Benton MD Work Phone: 0(993)109-320812 [place] [address] 04-17-2025 22:17-0400 Body height 165.[address] Daron Benton MD Work Phone: 4(448)118-516412 [place] [address] 04-17-2025 22:17-0400 Body mass index (BMI) [Ratio] 16.9 kg/m2 Dr. Daron Benton MD Work Phone: [facility] 04-17-2025 22:17-0400 Body weight 46.[address] Daron Benton MD Work Phone: [facility] 04-11-2025 16:10-0400 Body temperature 97.6 [degF] Dr. Daron Benton MD Work Phone: [facility] 04-11-2025 16:10-0400 Diastolic blood pressure 67 mm[Hg] Dr. Daron Benton MD Work Phone: [facility] 04-11-2025 16:10-0400 Heart rate 56 /min Dr. Daron Benton MD Work Phone: [facility] 04-11-2025 16:10-0400 Respiratory rate 18 /min Dr. Daron Benton MD Work Phone: [facility] 04-11-2025 16:10-0400 SaO2% (BldA) [Mass fraction] 100 % Dr. Daron Benton MD Work Phone: [facility] 04-11-2025 16:10-0400 Systolic blood pressure 124 mm[Hg] Dr. Daron Benton MD Work Phone: [facility] 04-11-2025 13:17-0400 Body mass index (BMI) [Ratio] 19.1 kg/m2 Dr. Daron Benton MD Work Phone: [facility] 04-11-2025 13:17-0400 Body weight 52.[address] Daron Benton MD Work Phone: [facility] 04-08-2025 15:20-0400 Diastolic blood pressure 88 mm[Hg] Lizz Lynn ROASTER OPERATOR - JUNIOR SOFTWARE ENGINEER Work Phone: [facility] 04-08-2025 15:20-0400 Heart rate 70 /min Lizz Lynn ROASTER OPERATOR - JUNIOR SOFTWARE ENGINEER Work Phone: [facility] 04-08-2025 15:20-0400 Systolic blood pressure 151 mm[Hg] Lizz Lynn ROASTER OPERATOR - JUNIOR SOFTWARE ENGINEER Work Phone: [facility] 04-08-2025 14:15-0400 Body height 167.6 cm Lizz Lynn ROASTER OPERATOR - JUNIOR SOFTWARE ENGINEER Work Phone: [facility] 04-08-2025 14:15-0400 Body mass index (BMI) [Ratio] 17.53 kg/m2 Lizz Lynn ROASTER OPERATOR - JUNIOR SOFTWARE ENGINEER Work Phone: [facility] 04-08-2025 14:15-0400 Body weight 49.26 kg Lizz Lynn ROASTER OPERATOR - JUNIOR SOFTWARE ENGINEER Work Phone: [facility] 04-02-2025 22:25-0400 Body temperature 98.1 [degF] Dr. Daron Benton MD Work Phone: [facility] 04-02-2025 22:25-0400 Diastolic blood pressure 79 mm[Hg] Dr. Daron Benton MD Work Phone: [facility] 04-02-2025 22:25-0400 Heart rate 73 /min Dr. Daron Benton MD Work Phone: [facility] 04-02-2025 22:25-0400 Respiratory rate 18 /min Dr. Daron Benton MD Work Phone: [facility] 04-02-2025 22:25-0400 SaO2% (BldA) [Mass fraction] 100 % Dr. Daron Benton MD Work Phone: [facility] 04-02-2025 22:25-0400 Systolic blood pressure 105 mm[Hg] Dr. Daron Benton MD Work Phone: [facility] 04-02-2025 19:21-0400 Body height 165.[address] Daron Benton MD Work Phone: [facility] 04-02-2025 19:21-0400 Body mass index (BMI) [Ratio] 18.8 kg/m2 Dr. Daron Benton MD Work Phone: [facility] 04-02-2025 19:21-0400 Body weight 51.[address] Daron Benton MD Work Phone: [facility] 03-04-2025 10:31-0400 Body height 167.6 cm Lizz Lynn ROASTER OPERATOR - JUNIOR SOFTWARE ENGINEER Work Phone: [facility] 03-04-2025 10:31-0400 Body mass index (BMI) [Ratio] 18.34 kg/m2 Lizz Lynn ROASTER OPERATOR - JUNIOR SOFTWARE ENGINEER Work Phone: [facility] 03-04-2025 10:31-0400 Body weight 51.53 kg Lizz Lynn ROASTER OPERATOR - JUNIOR SOFTWARE ENGINEER Work Phone: [facility] 03-04-2025 10:31-0400 Diastolic blood pressure 75 mm[Hg] Lizz Lynn ROASTER OPERATOR - JUNIOR SOFTWARE ENGINEER Work Phone: [facility] 03-04-2025 10:31-0400 Heart rate 64 /min Lizz Lynn ROASTER OPERATOR - JUNIOR SOFTWARE ENGINEER Work Phone: [facility] 03-04-2025 10:31-0400 Systolic blood pressure 139 mm[Hg] Lizz Lynn ROASTER OPERATOR - JUNIOR SOFTWARE ENGINEER Work Phone: [facility] 02-20-2025 09:08-0400 Body mass index (BMI) [Ratio] 19.8 kg/m2 Dr. Daron Benton MD Work Phone: [facility] 02-20-2025 09:08-0400 Body weight 53.[address] Daron Benton MD Work Phone: [facility] 02-20-2025 09:08-0400 Diastolic blood pressure 74 mm[Hg] Dr. Daron Benton MD Work Phone: [facility] 02-20-2025 09:08-0400 Heart rate 50 /min Dr. Daron Benton MD Work Phone: [facility] 02-20-2025 09:08-0400 Respiratory rate 18 /min Dr. Daron Benton MD Work Phone: [facility] 02-20-2025 09:08-0400 SaO2% (BldA) [Mass fraction] 100 % Dr. Daron Benton MD Work Phone: 2(686)864-891102 [place] [address] 02-20-2025 09:08-0400 Systolic blood pressure 121 mm[Hg] Dr. Daron Benton MD Work Phone: 8(721)881-548902 [place] [address] 01-13-2025 16:01-0500 Heart rate 59 /min Dr. Daron Benton MD Work Phone: 6(386)943-024312 [place] [address] 01-13-2025 16:01-0500 Respiratory rate 16 /min Dr. Daron Betnon MD Work Phone: 3(937)821-591612 [place] [address] 01-13-2025 14:34-0500 Body temperature 98 [degF] Dr. Daron Benton MD Work Phone: 7(004)371-580212 [place] [address] 01-13-2025 14:34-0500 Diastolic blood pressure 95 mm[Hg] Dr. Daron Benton MD Work Phone: 6(030)149-179712 [place] [address] 01-13-2025 14:34-0500 Inhaled oxygen flow rate 2 L/min Dr. Daron Benton MD Work Phone: 8(586)858-945612 [place] [address] 01-13-2025 14:34-0500 SaO2% (BldA) [Mass fraction] 94 % Dr. Daron Benton MD Work Phone: 7(670)984-094812 [place] [address] 01-13-2025 14:34-0500 Systolic blood pressure 111 mm[Hg] Dr. Daron Benton MD Work Phone: 9(767)159-959902 [place] [address] 01-13-2025 04:47-0500 Body mass index (BMI) [Ratio] 18.9 kg/m2 Dr. Daron Benton MD Work Phone: 5(705)181-031512 [place] [address] 01-13-2025 04:47-0500 Body weight 51.[address] Daron Benton MD Work Phone: 9(848)268-113812 [place] [address] 12-24-2024 10:03-0500 Body mass index (BMI) [Ratio] 19.4 kg/m2 Dr. Daron Benton MD Work Phone: 2(932)514-296754 [address] 12-24-2024 10:03-0500 Body temperature 96.7 [degF] Dr. Daron Benton MD Work Phone: [facility] 12-24-2024 10:03-0500 Body weight 53.[address] Daron Benton MD Work Phone: 6(885)875-617902 [place] [address] 12-24-2024 10:03-0500 Diastolic blood pressure 77 mm[Hg] Dr. Daron Benton MD Work Phone: 7(712)402-009202 [place] [address] 12-24-2024 10:03-0500 Heart rate 69 /min Dr. Daron Benton MD Work Phone: 1(864)577-259512 [place] [address] 12-24-2024 10:03-0500 Respiratory rate 18 /min Dr. Daron Benton MD Work Phone: 5(198)971-794112 [place] [address] 12-24-2024 10:03-0500 SaO2% (BldA) [Mass fraction] 95 % Dr. Daron Benton MD Work Phone: 1(473)722-610254 [address] 12-24-2024 10:03-0500 Systolic blood pressure 132 mm[Hg] Dr. Daron Benton MD Work Phone: 9(956)345-798412 [place] [address] 12-19-2024 13:20-0500 Body mass index (BMI) [Ratio] 19.4 kg/m2 Dr. Daron Benton MD Work Phone: 1(262)583-696912 [place] [address] 12-19-2024 13:20-0500 Body weight 53.[address] Daron Benton MD Work Phone: 7(403)083-199602 [place] [address] 12-19-2024 13:20-0500 Diastolic blood pressure 77 mm[Hg] Dr. Daron Benton MD Work Phone: 0(062)978-121754 [address] 12-19-2024 13:20-0500 Heart rate 67 /min Dr. Daron Benton MD Work Phone: 1(994)769-364502 [place] [address] 12-19-2024 13:20-0500 Respiratory rate 18 /min Dr. Daron Benton MD Work Phone: 6(461)651-775402 [place] [address] 12-19-2024 13:20-0500 SaO2% (BldA) [Mass fraction] 96 % Dr. Daron Benton MD Work Phone: 8(604)652-866502 [place] [address] 12-19-2024 13:20-0500 Systolic blood pressure 124 mm[Hg] Dr. Daron Benton MD Work Phone: 0(733)917-578902 [place] [address] 12-17-2024 14:25-0500 Body temperature 97.8 [degF] Dr. Daron Benton MD Work Phone: 2(304)662-587512 [place] [address] 12-17-2024 14:25-0500 Diastolic blood pressure 94 mm[Hg] Dr. Daron Benton MD Work Phone: 7(088)251-876112 [place] [address] 12-17-2024 14:25-0500 Heart rate 65 /min Dr. Daron Benton MD Work Phone: 7(532)938-502212 [place] [address] 12-17-2024 14:25-0500 Respiratory rate 20 /min Dr. Daron Benton MD Work Phone: 7(143)232-933212 [place] [address] 12-17-2024 14:25-0500 SaO2% (BldA) [Mass fraction] 95 % Dr. Daron Benton MD Work Phone: 0(017)643-790412 [place] [address] 12-17-2024 14:25-0500 Systolic blood pressure 151 mm[Hg] Dr. Daron Benton MD Work Phone: 3(132)676-133812 [place] [address] 12-17-2024 10:13-0500 Body mass index (BMI) [Ratio] 19.5 kg/m2 Dr. Daron Benton MD Work Phone: 7(960)855-336812 [place] [address] 12-17-2024 10:13-0500 Body weight 53.[address] Daron Benton MD Work Phone: 1(214)046-875602 [place] [address] 12-11-2024 13:50-0500 Body temperature 98 [degF] Dr. Daron Benton MD Work Phone: 5(501)888-377812 [place] [address] 12-11-2024 13:50-0500 Diastolic blood pressure 87 mm[Hg] Dr. Daron Benton MD Work Phone: 8(185)307-876902 [place] [address] 12-11-2024 13:50-0500 Heart rate 70 /min Dr. Daron Benton MD Work Phone: [facility] 12-11-2024 13:50-0500 Respiratory rate 16 /min Dr. Daron Benton MD Work Phone: 5(599)393-761512 [place] [address] 12-11-2024 13:50-0500 SaO2% (BldA) [Mass fraction] 96 % Dr. Daron Benton MD Work Phone: 0(510)661-033202 [place] [address] 12-11-2024 13:50-0500 Systolic blood pressure 139 mm[Hg] Dr. Daron Benton MD Work Phone: 5(538)592-957112 [place] [address] 12-10-2024 10:11-0500 Body weight 51.[address] Daron Benton MD Work Phone: 6(496)140-385412 [place] [address] 12-09-2024 18:00-0500 Inhaled oxygen flow rate 2 L/min Dr. Daron Benton MD Work Phone: 9(125)898-969712 [place] [address] 12-09-2024 14:59-0500 Body mass index (BMI) [Ratio] 18.8 kg/m2 Dr. Daron Benton MD Work Phone: 5(383)792-573112 [place] [address] 02-25-2024 17:00-0400 Body temperature 98.2 [degF] Dr. Daron Benton Work Phone: 8(800)854-672802 [place] [address] 02-25-2024 17:00-0400 Diastolic blood pressure 73 mm[Hg] Dr. Daron Benton Work Phone: 9(131)916-252902 [place] [address] 02-25-2024 17:00-0400 Heart rate 62 /min Dr. Daron Benton Work Phone: 5(847)959-231502 [place] [address] 02-25-2024 17:00-0400 Inhaled oxygen flow rate 2 L/min Dr. Daron Benton Work Phone: 4(276)109-236112 [place] [address] 02-25-2024 17:00-0400 Respiratory rate 16 /min Dr. Daron Benton Work Phone: 1(012)863-930802 [place] [address] 02-25-2024 17:00-0400 SaO2% (BldA) [Mass fraction] 98 % Dr. Daron Benton Work Phone: [facility] 02-25-2024 17:00-0400 Systolic blood pressure 136 mm[Hg] Dr. Daron Benton Work Phone: [facility] 02-24-2024 23:41-0400 Body height [address] Daron Benton Work Phone: [facility] 02-24-2024 23:41-0400 Body mass index (BMI) [Ratio] 19.8 kg/m2 Dr. Daron Benton Work Phone: [facility] 02-24-2024 23:41-0400 Body weight 55.[address] Daron Benton Work Phone: [facility] 02-19-2024 16:00-0400 Body temperature 97.5 [degF] Dr. Daron Benton Work Phone: [facility] 02-19-2024 16:00-0400 Diastolic blood pressure 71 mm[Hg] Dr. Daron Benton Work Phone: [facility] 02-19-2024 16:00-0400 Heart rate 68 /min Dr. Daron Benton Work Phone: [facility] 02-19-2024 16:00-0400 Respiratory rate 17 /min Dr. Daron Benton Work Phone: [facility] 02-19-2024 16:00-0400 SaO2% (BldA) [Mass fraction] 92 % Dr. Daron Benton Work Phone: [facility] 02-19-2024 16:00-0400 Systolic blood pressure 124 mm[Hg] Dr. Daron Benton Work Phone: [facility] 02-19-2024 10:52-0400 Body height 167.[address] Daron Benton Work Phone: [facility] 02-19-2024 10:52-0400 Body mass index (BMI) [Ratio] 21.8 kg/m2 Dr. Daron Benton Work Phone: [facility] 02-19-2024 10:52-0400 Body weight 61.[address] Daron Benton Work Phone: [facility] 01-18-2024 11:47-0500 Body temperature 97.7 [degF] Dr. Daron Benton Work Phone: [facility] 01-18-2024 11:47-0500 Diastolic blood pressure 70 mm[Hg] Dr. Daron Benton Work Phone: [facility] 01-18-2024 11:47-0500 Heart rate 62 /min Dr. Daron Benton Work Phone: 0(907)987-098602 [place] [address] 01-18-2024 11:47-0500 Respiratory rate 18 /min Dr. Daron Benton Work Phone: [facility] 01-18-2024 11:47-0500 SaO2% (BldA) [Mass fraction] 95 % Dr. Daron Benton Work Phone: [facility] 01-18-2024 11:47-0500 Systolic blood pressure 121 mm[Hg] Dr. Daron Benton Work Phone: [facility] 01-18-2024 10:23-0500 Body height 165.[address] Daron Benton Work Phone: [facility] 01-18-2024 10:23-0500 Body mass index (BMI) [Ratio] 20.4 kg/m2 Dr. Daron Benton Work Phone: [facility] 01-18-2024 10:23-0500 Body weight 55.[address] Daron Benton Work Phone: [facility] 01-11-2024 08:22-0500 Diastolic blood pressure 57 mm[Hg] Dr. Daron Benton Work Phone: [facility] 01-11-2024 08:22-0500 Systolic blood pressure 132 mm[Hg] Dr. Daron Benton Work Phone: [facility] 01-11-2024 08:13-0500 Body temperature 98.5 [degF] Dr. Daron Benton Work Phone: [facility] 01-11-2024 08:13-0500 Heart rate 61 /min Dr. Daron Benton Work Phone: [facility] 01-11-2024 08:13-0500 Respiratory rate 16 /min Dr. Daron Benton Work Phone: [facility] 01-11-2024 08:13-0500 SaO2% (BldA) [Mass fraction] 98 % Dr. Daron Benton Work Phone: [facility] 01-11-2024 06:51-0500 Inhaled oxygen flow rate 2 L/min Dr. Daron Benton Work Phone: [facility] 01-11-2024 02:14-0500 Body height 165.[address] Daron Benton Work Phone: [facility] 01-11-2024 02:14-0500 Body mass index (BMI) [Ratio] 20.1 kg/m2 Dr. Daron Benton Work Phone: [facility] 01-11-2024 02:14-0500 Body weight [address] Daron Benton Work Phone: [facility] 12-21-2023 12:53-0500 Body mass index (BMI) [Ratio] 20.5 kg/m2 Dr. Daron Benton Work Phone: [facility] 12-21-2023 12:53-0500 Body weight 55.[address] Daron Benton Work Phone: [facility] 12-21-2023 12:53-0500 Diastolic blood pressure 89 mm[Hg] Dr. Daron Benton Work Phone: [facility] 12-21-2023 12:53-0500 Heart rate 50 /min Dr. Daron Benton Work Phone: [facility] 12-21-2023 12:53-0500 Respiratory rate 18 /min Dr. Daron Benton Work Phone: [facility] 12-21-2023 12:53-0500 SaO2% (BldA) [Mass fraction] 100 % Dr. Daron Benton Work Phone: [facility] 12-21-2023 12:53-0500 Systolic blood pressure 193 mm[Hg] Dr. Daron Benton Work Phone: [facility] 12-14-2023 13:43-0500 Body mass index (BMI) [Ratio] 19.37 kg/m2 Lizz Lynn ROASTER OPERATOR - JUNIOR SOFTWARE ENGINEER Work Phone: [facility] 12-14-2023 13:43-0500 Body weight 54.43 kg Lizz Lynn ROASTER OPERATOR - JUNIOR SOFTWARE ENGINEER Work Phone: [facility] 12-14-2023 13:43-0500 Diastolic blood pressure 78 mm[Hg] Lizz Lynn ROASTER OPERATOR - JUNIOR SOFTWARE ENGINEER Work Phone: [facility] 12-14-2023 13:43-0500 Heart rate 66 /min Lizz Lynn ROASTER OPERATOR - JUNIOR SOFTWARE ENGINEER Work Phone: [facility] 12-14-2023 13:43-0500 Systolic blood pressure 186 mm[Hg] Lizz Lynn ROASTER OPERATOR - JUNIOR SOFTWARE ENGINEER Work Phone: [facility] 12-07-2023 14:27-0500 Body temperature 97.4 [degF] Dr. Daron Benton Work Phone: [facility] 12-07-2023 14:27-0500 Diastolic blood pressure 79 mm[Hg] Dr. Daron Benton Work Phone: [facility] 12-07-2023 14:27-0500 Heart rate 50 /min Dr. Daron Benton Work Phone: [facility] 12-07-2023 14:27-0500 Respiratory rate 12 /min Dr. Daron Benton Work Phone: [facility] 12-07-2023 14:27-0500 SaO2% (BldA) [Mass fraction] 98 % Dr. Daron Benton Work Phone: [facility] 12-07-2023 14:27-0500 Systolic blood pressure 140 mm[Hg] Dr. Daron Benton Work Phone: [facility] 12-06-2023 16:45-0500 Body height 165.[address] Daron Benton Work Phone: [facility] 12-06-2023 16:45-0500 Body weight [address] Daron Benton Work Phone: [facility] 12-04-2023 07:00-0500 Inhaled oxygen flow rate 1 L/min Dr. Daron Benton Work Phone: 7(436)204-685154 [address] 12-02-2023 12:37-0500 Body mass index (BMI) [Ratio] 20.5 kg/m2 Dr. Daron Benton Work Phone: 6(983)414-479302 [place] [address] 12-02-2023 11:40-0500 Diastolic blood pressure 48 mm[Hg] Dr. Daron Benton Work Phone: [facility] 12-02-2023 11:40-0500 Heart rate 48 /min Dr. Daron Benton Work Phone: 2(406)009-147602 [place] [address] 12-02-2023 11:40-0500 Respiratory rate 15 /min Dr. Daron Benton Work Phone: [facility] 12-02-2023 11:40-0500 SaO2% (BldA) [Mass fraction] 94 % Dr. Daron Benton Work Phone: [facility] 12-02-2023 11:40-0500 Systolic blood pressure 176 mm[Hg] Dr. Daron Benton Work Phone: 7(901)738-075502 [place] [address] 12-02-2023 06:33-0500 Body height 165.[address] Daron Benton Work Phone: [facility] 12-02-2023 06:33-0500 Body mass index (BMI) [Ratio] 20.5 kg/m2 Dr. Daron Benton Work Phone: 6(111)586-396902 [place] [address] 12-02-2023 06:33-0500 Body temperature 97.6 [degF] Dr. Daron Benton Work Phone: [facility] 12-02-2023 06:33-0500 Body weight [address] Daron Benton Work Phone: [facility] 11-27-2023 12:32-0500 Body height 165.[address] Daron Benton Work Phone: [facility] 11-27-2023 09:46-0500 SaO2% (BldA) [Mass fraction] 96 % Dr. Daron Benton Work Phone: [facility] 11-27-2023 09:32-0500 Body temperature 98 [degF] Dr. Daron Benton Work Phone: [facility] 11-27-2023 09:32-0500 Diastolic blood pressure 97 mm[Hg] Dr. Daron Benton Work Phone: [facility] 11-27-2023 09:32-0500 Heart rate 52 /min Dr. Daron Benton Work Phone: [facility] 11-27-2023 09:32-0500 Respiratory rate 14 /min Dr. Daron Benton Work Phone: [facility] 11-27-2023 09:32-0500 Systolic blood pressure 196 mm[Hg] Dr. Daron Benton Work Phone: [facility] 11-27-2023 09:01-0500 Body mass index (BMI) [Ratio] 20 kg/m2 Dr. Daron Benton Work Phone: [facility] 11-27-2023 09:01-0500 Body weight 54.[address] Daron Benton Work Phone: [facility] 11-26-2023 15:22-0500 Diastolic blood pressure 81 mm[Hg] Dr. Daron Benton Work Phone: [facility] 11-26-2023 15:22-0500 Heart rate 69 /min Dr. Daron Benton Work Phone: [facility] 11-26-2023 15:22-0500 Respiratory rate 16 /min Dr. Daron Benton Work Phone: [facility] 11-26-2023 15:22-0500 SaO2% (BldA) [Mass fraction] 96 % Dr. Daron Benton Work Phone: [facility] 11-26-2023 15:22-0500 Systolic blood pressure 149 mm[Hg] Dr. Daron Benton Work Phone: [facility] 11-26-2023 12:47-0500 Body height 165.[address] Daron Benton Work Phone: 4(300)413-997654 [address] 11-26-2023 12:47-0500 Body mass index (BMI) [Ratio] 20.2 kg/m2 Dr. Daron Benton Work Phone: 2(439)512-798454 [address] 11-26-2023 12:47-0500 Body temperature 97 [degF] Dr. Daron Benton Work Phone: [facility] 11-26-2023 12:47-0500 Body weight 55.[address] Daron Benton Work Phone: [facility] 11-21-2023 11:50-0500 Body temperature 98.3 [degF] Dr. Daron Benton Work Phone: 7(342)163-818102 [place] [address] 11-21-2023 11:50-0500 Diastolic blood pressure 72 mm[Hg] Dr. Daron Benton Work Phone: [facility] 11-21-2023 11:50-0500 Heart rate 54 /min Dr. Daron Benton Work Phone: [facility] 11-21-2023 11:50-0500 Respiratory rate 16 /min Dr. Daron Benton Work Phone: [facility] 11-21-2023 11:50-0500 SaO2% (BldA) [Mass fraction] 94 % Dr. Daron Benton Work Phone: [facility] 11-21-2023 11:50-0500 Systolic blood pressure 134 mm[Hg] Dr. Daron Benton Work Phone: [facility] 11-21-2023 05:35-0500 Body mass index (BMI) [Ratio] 20.4 kg/m2 Dr. Daron Benton Work Phone: [facility] 11-21-2023 05:35-0500 Body weight 55.[address] Daron Benton Work Phone: [facility] 11-18-2023 15:44-0500 Body height 165.[address] Daron Benton Work Phone: [facility] 11-18-2023 15:18-0500 Body temperature 98.2 [degF] Dr. Daron Benton Work Phone: [facility] 11-18-2023 15:18-0500 Diastolic blood pressure 75 mm[Hg] Dr. Daron Benton Work Phone: [facility] 11-18-2023 15:18-0500 Heart rate 72 /min Dr. Daron Benton Work Phone: [facility] 11-18-2023 15:18-0500 Respiratory rate 17 /min Dr. Daron Benton Work Phone: [facility] 11-18-2023 15:18-0500 SaO2% (BldA) [Mass fraction] 93 % Dr. Daron Benton Work Phone: [facility] 11-18-2023 15:18-0500 Systolic blood pressure 161 mm[Hg] Dr. Daron Benton Work Phone: [facility] 11-18-2023 11:43-0500 Body height 165.[address] Daron Benton Work Phone: [facility] 11-18-2023 11:43-0500 Body mass index (BMI) [Ratio] 20.9 kg/m2 Dr. Daron Benton Work Phone: [facility] 11-18-2023 11:43-0500 Body weight 57.[address] Daron Benton Work Phone: [facility] 11-16-2023 11:05-0500 Body height 165.[address] Daron Benton Work Phone: [facility] 11-16-2023 11:05-0500 Body weight 54.[address] Daron Benton Work Phone: [facility] 11-16-2023 09:53-0500 Heart rate 66 /min Dr. Daron Benton Work Phone: [facility] 11-16-2023 09:31-0500 Body temperature 97.7 [degF] Dr. Daron Benton Work Phone: [facility] 11-16-2023 09:31-0500 Diastolic blood pressure 71 mm[Hg] Dr. Daron Benton Work Phone: [facility] 11-16-2023 09:31-0500 Respiratory rate 16 /min Dr. Daron Benton Work Phone: [facility] 11-16-2023 09:31-0500 SaO2% (BldA) [Mass fraction] 96 % Dr. Daron Benton Work Phone: [facility] 11-16-2023 09:31-0500 Systolic blood pressure 138 mm[Hg] Dr. Daron Benton Work Phone: [facility] 11-16-2023 01:54-0500 Body mass index (BMI) [Ratio] 19.9 kg/m2 Dr. Daron Benton Work Phone: [facility] 11-15-2023 15:21-0500 Diastolic blood pressure 49 mm[Hg] Dr. Daron Benton Work Phone: [facility] 11-15-2023 15:21-0500 Heart rate 60 /min Dr. Daron Benton Work Phone: [facility] 11-15-2023 15:21-0500 Respiratory rate 18 /min Dr. Daron Benton Work Phone: [facility] 11-15-2023 15:21-0500 SaO2% (BldA) [Mass fraction] 98 % Dr. Daron Benton Work Phone: [facility] 11-15-2023 15:21-0500 Systolic blood pressure 119 mm[Hg] Dr. Daron Benton Work Phone: [facility] 11-15-2023 13:28-0500 Body temperature 97.8 [degF] Dr. Daron Benton Work Phone: 1(342)567-062754 [address] 11-15-2023 11:22-0500 Body height 165.[address] Daron Benton Work Phone: 4(978)185-674154 [address] 11-15-2023 11:22-0500 Body mass index (BMI) [Ratio] 21.3 kg/m2 Dr. Daron Benton Work Phone: 5(532)000-210502 [place] [address] 11-15-2023 11:22-0500 Body weight 58.[address] Daron Benton Work Phone: 8(805)879-610202 [place] [address] 11-02-2023 13:04-0500 Body mass index (BMI) [Ratio] 20.5 kg/m2 Dr. Daron Benton Work Phone: [facility] 11-02-2023 13:04-0500 Body weight 55.[address] Daron Benton Work Phone: 2(224)464-765802 [place] [address] 11-02-2023 13:04-0500 Diastolic blood pressure 68 mm[Hg] Dr. Daron Benton Work Phone: [facility] 11-02-2023 13:04-0500 Heart rate 89 /min Dr. Daron Benton Work Phone: [facility] 11-02-2023 13:04-0500 Respiratory rate 18 /min Dr. Daron Benton Work Phone: [facility] 11-02-2023 13:04-0500 SaO2% (BldA) [Mass fraction] 100 % Dr. Daron Benton Work Phone: [facility] 11-02-2023 13:04-0500 Systolic blood pressure 109 mm[Hg] Dr. Daron Benton Work Phone: [facility] 10-05-2023 08:07-0500 Diastolic blood pressure 82 mm[Hg] Dr. Daron Benton Work Phone: [facility] 10-05-2023 08:07-0500 Respiratory rate 16 /min Dr. Daron Benton Work Phone: [facility] 10-05-2023 08:07-0500 SaO2% (BldA) [Mass fraction] 96 % Dr. Daron Benton Work Phone: [facility] 10-05-2023 08:07-0500 Systolic blood pressure 214 mm[Hg] Dr. Daron Benton Work Phone: [facility] 10-05-2023 00:43-0500 Body height 165.[address] Daron Benton Work Phone: [facility] 10-05-2023 00:43-0500 Body mass index (BMI) [Ratio] 21.7 kg/m2 Dr. Daron Benton Work Phone: [facility] 10-05-2023 00:43-0500 Body temperature 97.8 [degF] Dr. Daron Benton Work Phone: [facility] 10-05-2023 00:43-0500 Body weight 59.[address] Daron Benton Work Phone: [facility] 10-05-2023 00:43-0500 Heart rate 55 /min Dr. Daron Benton Work Phone: [facility] 05-24-2023 11:16-0400 Body weight 52.[address] Daron Benton Work Phone: [facility] 05-24-2023 11:16-0400 Diastolic blood pressure 86 mm[Hg] Dr. Daron Benton Work Phone: [facility] 05-24-2023 11:16-0400 Heart rate 56 /min Dr. Daron Benton Work Phone: [facility] 05-24-2023 11:16-0400 Respiratory rate 20 /min Dr. Daron Benton Work Phone: [facility] 05-24-2023 11:16-0400 Systolic blood pressure 120 mm[Hg] Dr. Daron Benton Work Phone: [facility] 05-24-2023 09:19-0400 Body height 165.[address] Daron Benton Work Phone: [facility] 04-08-2023 12:14-0400 Diastolic blood pressure 87 mm[Hg] Dr. Daron Benton Work Phone: [facility] 04-08-2023 12:14-0400 Heart rate 50 /min Dr. Daron Benton Work Phone: [facility] 04-08-2023 12:14-0400 Respiratory rate 12 /min Dr. Daron Benton Work Phone: [facility] 04-08-2023 12:14-0400 SaO2% (BldA) [Mass fraction] 98 % Dr. Daron Benton Work Phone: [facility] 04-08-2023 12:14-0400 Systolic blood pressure 162 mm[Hg] Dr. Daron Benton Work Phone: [facility] 04-08-2023 09:19-0400 Body height 165.[address] Daron Bentno Work Phone: [facility] 04-08-2023 09:19-0400 Body mass index (BMI) [Ratio] 19.1 kg/m2 Dr. Daron Benton Work Phone: [facility] 04-08-2023 09:19-0400 Body temperature 97.5 [degF] Dr. Daron Benton Work Phone: [facility] 04-08-2023 09:19-0400 Body weight [address] Daron Benton Work Phone: [facility] 03-31-2023 15:10-0400 Diastolic blood pressure 82 mm[Hg] Dr. Daron Benton Work Phone: [facility] 03-31-2023 15:10-0400 Heart rate 45 /min Dr. Daron Benton Work Phone: [facility] 03-31-2023 15:10-0400 Respiratory rate 16 /min Dr. Daron Benton Work Phone: 8(944)450-572812 [place] [address] 03-31-2023 15:10-0400 SaO2% (BldA) [Mass fraction] 100 % Dr. Daron Benton Work Phone: 9(276)355-945102 [place] [address] 03-31-2023 15:10-0400 Systolic blood pressure 198 mm[Hg] Dr. Daron Benton Work Phone: 6(806)954-137212 [place] [address] 03-31-2023 12:40-0400 Body mass index (BMI) [Ratio] 19.5 kg/m2 Dr. Daron Benton Work Phone: 3(834)093-635054 [address] 03-31-2023 12:40-0400 Body weight 53.[address] Daron Benton Work Phone: 5(907)611-070612 [place] [address] 03-31-2023 12:33-0400 Body height 165.[address] Daron Benton Work Phone: 2(470)066-688212 [place] [address] 03-31-2023 12:33-0400 Body temperature 96.9 [degF] Dr. Daron Benton Work Phone: 1(519)101-084154 [address] 03-16-2023 12:26-0400 Body height 165.[address] Daron Benton Work Phone: [facility] 03-16-2023 12:26-0400 Body mass index (BMI) [Ratio] 19.1 kg/m2 Dr. Daron Benton Work Phone: [facility] 03-16-2023 12:26-0400 Body temperature 97.3 [degF] Dr. Daron Benton Work Phone: [facility] 03-16-2023 12:26-0400 Body weight 52.[address] Daron Benton Work Phone: [facility] 03-16-2023 12:26-0400 Diastolic blood pressure 85 mm[Hg] Dr. Daron Benton Work Phone: [facility] 03-16-2023 12:26-0400 Heart rate 58 /min Dr. Daron Benton Work Phone: 1(256)237-883802 [place] [address] 03-16-2023 12:26-0400 Respiratory rate 14 /min Dr. Daron Benton Work Phone: 5(299)612-197302 [place] [address] 03-16-2023 12:26-0400 SaO2% (BldA) [Mass fraction] 100 % Dr. Daron Benton Work Phone: 7(760)460-536112 [place] [address] 03-16-2023 12:26-0400 Systolic blood pressure 163 mm[Hg] Dr. Daron Benton Work Phone: 4(859)536-059312 [place] [address] 11-24-2022 18:46-0500 Body height 167.[address] Daron Benton Work Phone: 6(578)041-425512 [place] [address] 11-24-2022 18:46-0500 Body mass index (BMI) [Ratio] 19.3 kg/m2 Dr. Daron Benton Work Phone: 7(990)800-746412 [place] [address] 11-24-2022 18:46-0500 Body temperature 97.2 [degF] Dr. Daron Benton Work Phone: 5(544)049-744412 [place] [address] 11-24-2022 18:46-0500 Body weight 54.[address] Daron Benton Work Phone: 1(200)344-292712 [place] [address] 11-24-2022 18:46-0500 Diastolic blood pressure 106 mm[Hg] Dr. Daron Benton Work Phone: 6(869)474-148412 [place] [address] 11-24-2022 18:46-0500 Heart rate 61 /min Dr. Daron Benton Work Phone: 5(955)238-581802 [place] [address] 11-24-2022 18:46-0500 Respiratory rate 18 /min Dr. Daron Benton Work Phone: 4(636)235-362502 [place] [address] 11-24-2022 18:46-0500 SaO2% (BldA) [Mass fraction] 100 % Dr. Daron Benton Work Phone: [facility] 11-24-2022 18:46-0500 Systolic blood pressure 159 mm[Hg] Dr. Daron Benton Work Phone: [facility] 11-09-2022 14:07-0500 Diastolic Blood Pressure Non-Invasive 66 1 TYE BARNETT MD [facility] 11-09-2022 14:07-0500 Heart rate 56 /min TYE BARNETT MD [facility] 11-09-2022 14:07-0500 Systolic Blood Pressure Non-Invasive 155 1 TYE BARNETT MD [facility] 11-09-2022 13:42-0500 Diastolic Blood Pressure Non-Invasive 69 1 TYE BARNETT MD [facility] 11-09-2022 13:42-0500 Heart rate 58 /min TYE BARNETT MD [facility] 11-09-2022 13:42-0500 Systolic Blood Pressure Non-Invasive 156 1 TYE BARNETT MD [facility] 11-09-2022 13:14-0500 Diastolic Blood Pressure Non-Invasive 86 1 TYE BARNETT MD [facility] 11-09-2022 13:14-0500 Heart rate 54 /min TYE BARNETT MD [facility] 11-09-2022 13:14-0500 Systolic Blood Pressure Non-Invasive 175 1 TYE BARNETT MD [facility] 11-09-2022 11:25-0500 Reason For Taking VItal Signs TYE BARNETT MD [facility] 11-09-2022 11:25-0500 Respiratory rate 16 /min TYE BARNETT MD [facility] 11-09-2022 11:03-0500 Respiratory rate 16 /min TYE BARNETT MD [facility] 11-09-2022 10:38-0500 Respiratory rate 16 /min TYE BARNETT MD [facility] 11-09-2022 06:29-0500 Blood Pressure Location TYE BARNETT MD [facility] 11-09-2022 06:29-0500 Body height 167.6 cm TYE BARNETT MD [facility] 11-09-2022 06:29-0500 Body temperature 97.7 [degF] TYE BARNETT MD [facility] 11-09-2022 06:29-0500 Body weight 54.8 kg TYE BARNETT MD [facility] 11-09-2022 06:29-0500 Body weight 19.51 kg/m2 TYE BARNETT MD [facility] 10-26-2022 13:20-0500 Body mass index (BMI) [Ratio] 19 kg/m2 Dr. Daron Benton Work Phone: [facility] 10-26-2022 13:20-0500 Body weight 53.[address] Daron Benton Work Phone: [facility] 10-26-2022 13:20-0500 Diastolic blood pressure 70 mm[Hg] Dr. Daron Benton Work Phone: [facility] 10-26-2022 13:20-0500 Heart rate 51 /min Dr. Daron Benton Work Phone: [facility] 10-26-2022 13:20-0500 Respiratory rate 18 /min Dr. Daron Benton Work Phone: [facility] 10-26-2022 13:20-0500 SaO2% (BldA) [Mass fraction] 100 % Dr. Daron Benton Work Phone: [facility] 10-26-2022 13:20-0500 Systolic blood pressure 129 mm[Hg] Dr. Daron Benton Work Phone: [facility] 05-16-2022 12:37-0400 Body height 167.[address] Daron Benton Work Phone: [facility] Work Phone: 05-16-2022 12:37-0400 Body mass index (BMI) [Ratio] 19.5 kg/m2 Dr. Daron Benton Work Phone: [facility] Work Phone: 05-16-2022 12:37-0400 Body weight 54.[address] Daron Benton Work Phone: [facility] Work Phone: 05-16-2022 12:37-0400 Diastolic blood pressure 75 mm[Hg] Dr. Daron Benton Work Phone: [facility] Work Phone: 05-16-2022 12:37-0400 Heart rate 57 /min Dr. Daron Benton Work Phone: [facility] Work Phone: 05-16-2022 12:37-0400 Respiratory rate 18 /min Dr. Daron Benton Work Phone: [facility] Work Phone: 05-16-2022 12:37-0400 SaO2% (BldA) [Mass fraction] 98 % Dr. Daron Benton Work Phone: [facility] Work Phone: 05-16-2022 12:37-0400 Systolic blood pressure 115 mm[Hg] Dr. Daron Benton Work Phone: [facility] Work Phone: 02-22-2022 10:52-0400 Body height 167.[address] Daron Benton Work Phone: [facility] Work Phone: 02-22-2022 10:52-0400 Body mass index (BMI) [Ratio] 20.1 kg/m2 Dr. Daron Benton Work Phone: [facility] Work Phone: 02-22-2022 10:52-0400 Body weight 56.[address] Daron eBnton Work Phone: [facility] Work Phone: 02-22-2022 10:52-0400 Diastolic blood pressure 94 mm[Hg] Dr. Daron Benton Work Phone: [facility] Work Phone: 02-22-2022 10:52-0400 Heart rate 56 /min Dr. Daron Benton Work Phone: [facility] Work Phone: 02-22-2022 10:52-0400 Respiratory rate 18 /min Dr. Daron Benton Work Phone: [facility] Work Phone: 02-22-2022 10:52-0400 SaO2% (BldA) [Mass fraction] 96 % Dr. Daron Benton Work Phone: [facility] Work Phone: 02-22-2022 10:52-0400 Systolic blood pressure 169 mm[Hg] Dr. Daron Benton Work Phone: [facility] Work Phone: 02-20-2022 19:23-0400 Diastolic blood pressure 89 mm[Hg] Dr. Daron Benton Work Phone: [facility] Work Phone: 02-20-2022 19:23-0400 Heart rate 67 /min Dr. Daron Benton Work Phone: [facility] Work Phone: 02-20-2022 19:23-0400 Respiratory rate 15 /min Dr. Daron Benton Work Phone: [facility] Work Phone: 02-20-2022 19:23-0400 SaO2% (BldA) [Mass fraction] 97 % Dr. Daron Benton Work Phone: [facility] Work Phone: 02-20-2022 19:23-0400 Systolic blood pressure 172 mm[Hg] Dr. Daron Benton Work Phone: [facility] Work Phone: 02-20-2022 16:38-0400 Body mass index (BMI) [Ratio] 20.6 kg/m2 Dr. Daron Benton Work Phone: [facility] Work Phone: 02-20-2022 16:38-0400 Body temperature 96.5 [degF] Dr. Daron Benton Work Phone: [facility] Work Phone: 02-20-2022 16:38-0400 Body weight 58.[address] Daron Benton Work Phone: [facility] Work Phone: 02-18-2022 07:24-0400 Diastolic blood pressure 84 mm[Hg] Dr. Daron Benton Work Phone: [facility] Work Phone: 02-18-2022 07:24-0400 Heart rate 82 /min Dr. Daron Benton Work Phone: [facility] Work Phone: 02-18-2022 07:24-0400 Respiratory rate 16 /min Dr. Daron Benton Work Phone: [facility] Work Phone: 02-18-2022 07:24-0400 SaO2% (BldA) [Mass fraction] 98 % Dr. Daron Benton Work Phone: [facility] Work Phone: 02-18-2022 07:24-0400 Systolic blood pressure 145 mm[Hg] Dr. Daron Benton Work Phone: [facility] Work Phone: 02-18-2022 04:09-0400 Body height 167.[address] Daron Benton Work Phone: [facility] Work Phone: 02-18-2022 04:09-0400 Body mass index (BMI) [Ratio] 21.2 kg/m2 Dr. Daron Benton Work Phone: [facility] Work Phone: 02-18-2022 04:09-0400 Body temperature 97 [degF] Dr. Daron Benton Work Phone: [facility] Work Phone: 02-18-2022 04:09-0400 Body weight 59.[address] Daron Benton Work Phone: [facility] Work Phone: 02-17-2022 22:28-0400 Diastolic blood pressure 87 mm[Hg] Dr. Daron Benton Work Phone: [facility] Work Phone: 02-17-2022 22:28-0400 Heart rate 82 /min Dr. Daron Benton Work Phone: [facility] Work Phone: 02-17-2022 22:28-0400 Respiratory rate 15 /min Dr. Daron Benton Work Phone: [facility] Work Phone: 02-17-2022 22:28-0400 SaO2% (BldA) [Mass fraction] 98 % Dr. Daron Benton Work Phone: [facility] Work Phone: 02-17-2022 22:28-0400 Systolic blood pressure 145 mm[Hg] Dr. Daron Benton Work Phone: [facility] Work Phone: 02-17-2022 21:33-0400 Body height 167.[address] Daron Benton Work Phone: [facility] Work Phone: 02-17-2022 21:33-0400 Body mass index (BMI) [Ratio] 20.6 kg/m2 Dr. Daron Benton Work Phone: [facility] Work Phone: 02-17-2022 21:33-0400 Body temperature 98.1 [degF] Dr. Daron Benton Work Phone: [facility] Work Phone: 02-17-2022 21:33-0400 Body weight 58.[address] Daron Benton Work Phone: [facility] Work Phone: 02-14-2022 23:00-0400 Diastolic blood pressure 78 mm[Hg] Dr. Daron Benton Work Phone: [facility] Work Phone: 02-14-2022 23:00-0400 Heart rate 78 /min Dr. Daron Benton Work Phone: [facility] Work Phone: 02-14-2022 23:00-0400 Respiratory rate 16 /min Dr. Daron Benton Work Phone: [facility] Work Phone: 02-14-2022 23:00-0400 SaO2% (BldA) [Mass fraction] 97 % Dr. Daron Benton Work Phone: [facility] Work Phone: 02-14-2022 23:00-0400 Systolic blood pressure 159 mm[Hg] Dr. Daron Benton Work Phone: [facility] Work Phone: 02-14-2022 15:46-0400 Body mass index (BMI) [Ratio] 22 kg/m2 Dr. Daron Benton Work Phone: [facility] Work Phone: 02-14-2022 15:46-0400 Body temperature 98.2 [degF] Dr. Daron Benton Work Phone: [facility] Work Phone: 02-14-2022 15:46-0400 Body weight 61.[address] Daron Benton Work Phone: [facility] Work Phone: 02-08-2022 12:58-0400 Body mass index (BMI) [Ratio] 20.5 kg/m2 Dr. Daron Benton Work Phone: [facility] Work Phone: 02-08-2022 12:58-0400 Body weight 57.[address] Daron Benton Work Phone: [facility] Work Phone: 02-08-2022 12:58-0400 Diastolic blood pressure 76 mm[Hg] Dr. Daron Benton Work Phone: [facility] Work Phone: 02-08-2022 12:58-0400 Heart rate 51 /min Dr. Daron Benton Work Phone: [facility] Work Phone: 02-08-2022 12:58-0400 Respiratory rate 18 /min Dr. Daron Benton Work Phone: [facility] Work Phone: 02-08-2022 12:58-0400 SaO2% (BldA) [Mass fraction] 99 % Dr. Daron Benton Work Phone: [facility] Work Phone: 02-08-2022 12:58-0400 Systolic blood pressure 136 mm[Hg] Dr. Daron Benton Work Phone: [facility] Work Phone: 02-08-2022 12:58-0400 Body mass index (BMI) [Ratio] 20.5 kg/m2 Dr. Daron Benton Work Phone: [facility] Work Phone: 02-08-2022 12:58-0400 Body weight 57.[address] Daron Benton Work Phone: [facility] Work Phone: 02-08-2022 12:58-0400 Diastolic blood pressure 76 mm[Hg] Dr. Daron Benton Work Phone: [facility] Work Phone: 02-08-2022 12:58-0400 Heart rate 51 /min Dr. Daron Benton Work Phone: [facility] Work Phone: 02-08-2022 12:58-0400 Respiratory rate 18 /min Dr. Daron Benton Work Phone: [facility] Work Phone: 02-08-2022 12:58-0400 SaO2% (BldA) [Mass fraction] 99 % Dr. Daron Benton Work Phone: [facility] Work Phone: 02-08-2022 12:58-0400 Systolic blood pressure 136 mm[Hg] Dr. Daron Benton Work Phone: [facility] Work Phone: 01-23-2022 10:55-0500 Body mass index (BMI) [Ratio] 21 kg/m2 Dr. Daron Benton Work Phone: [facility] Work Phone: 01-23-2022 10:55-0500 Body temperature 97.3 [degF] Dr. Daron Benton Work Phone: [facility] Work Phone: 01-23-2022 10:55-0500 Body weight 59.[address] Daron Benton Work Phone: [facility] Work Phone: 03-07-2022 10:55-0500 Diastolic blood pressure 105 mm[Hg] Dr. Daron Benton Work Phone: [facility] Work Phone: 01-23-2022 10:55-0500 Heart rate 54 /min Dr. Daron Benton Work Phone: [facility] Work Phone: 01-23-2022 10:55-0500 Respiratory rate 16 /min Dr. Daron Benton Work Phone: [facility] Work Phone: 01-23-2022 10:55-0500 SaO2% (BldA) [Mass fraction] 96 % Dr. Daron Benton Work Phone: [facility] Work Phone: 01-23-2022 10:55-0500 Systolic blood pressure 194 mm[Hg] Dr. Daron Benton Work Phone: [facility] Work Phone: 01-23-2022 09:55-0500 Body mass index (BMI) [Ratio] 21 kg/m2 Dr. Daron Benton Work Phone: [facility] Work Phone: 01-23-2022 09:55-0500 Body temperature 97.3 [degF] Dr. Daron Benton Work Phone: [facility] Work Phone: 01-23-2022 09:55-0500 Body weight 59.[address] Daron Benton Work Phone: [facility] Work Phone: 01-23-2022 09:55-0500 Diastolic blood pressure 105 mm[Hg] Dr. Daron Benton Work Phone: [facility] Work Phone: 01-23-2022 09:55-0500 Heart rate 54 /min Dr. Daron Benton Work Phone: [facility] Work Phone: 01-23-2022 09:55-0500 Respiratory rate 16 /min Dr. Daron Benton Work Phone: [facility] Work Phone: 01-23-2022 09:55-0500 SaO2% (BldA) [Mass fraction] 96 % Dr. Daron Benton Work Phone: [facility] Work Phone: 01-23-2022 09:55-0500 Systolic blood pressure 194 mm[Hg] Dr. Daron Benton Work Phone: [facility] Work Phone: 01-18-2022 07:11-0500 Body weight 56.[address] Daron Benton Work Phone: [facility] Work Phone: 01-18-2022 06:11-0500 Body weight 56.[address] Daron Benton Work Phone: [facility] Work Phone: 01-17-2022 08:23-0500 Body mass index (BMI) [Ratio] 20.7 kg/m2 Dr. Daron Benton Work Phone: [facility] Work Phone: 01-17-2022 07:23-0500 Body mass index (BMI) [Ratio] 20.7 kg/m2 Dr. Daron Benotn Work Phone: [facility] Work Phone: Encounters Encounter Date Encounter Type Care Provider Facility Start: 09-21-2025 Dr. Tye aburto MD -Cat Scan [facility] Work Phone: Start: 09-21-2025 End: 09-21-2025 ambulatory Tye Barnett Facility:[facility] Start: 09-18-2025 End: 09-19-2025 Dr. Daron Benton MD Work Phone: -Emergency Department Work Phone: Start: 09-18-2025 End: 09-19-2025 Emergency department patient visit Yasmani Haynes Facility:[facility] Start: 08-12-2025 Dr. Eva Mortensen DO -[facility] Work Phone: Start: 08-12-2025 Dr. Bhavik blevins MD -[facility] Work Phone: Start: 08-11-2025 Dr. Eva Mortensen DO -[facility] Work Phone: Start: 08-10-2025 Dr. Eva Mortensen DO -[facility] Work Phone: Start: 08-09-2025 Dr. Neha simpson MD -[facility] Work Phone: Start: 08-08-2025 ambulatory [facility] Start: 08-08-2025 End: 08-12-2025 Evaluation and management of inpatient Dr. Daron Benton MD Work Phone: -Progressive Care Unit Start: 08-08-2025 End: 08-12-2025 Dr. Eva Mortensen DO -Progressive Care Un it Work Phone: Start: 08-05-2025 End: 08-06-2025 Dr. Daron Benton MD Work Phone: -Emergency Department Work Phone: Start: 08-05-2025 End: 08-06-2025 Emergency department patient visit Dr. Daron Benton MD Work Phone: -Emergency Department Start: 08-05-2025 End: 08-05-2025 Betsey PEÑA -[facility] Work Phone: Start: 08-05-2025 End: 08-05-[address] Daron Benton MD Work Phone: -[facility] Start: 07-31-2025 End: 08-01-2025 Dr. Jeffy Willoughby MD -Emergency [facility] Work Phone: Start: 07-31-2025 End: 08-01-2025 Emergency department patient visit Jeffy Willoughby Facility:[facility] Start: 07-23-2025 End: 07-23-2025 Office outpatient visit 15 minutes Lizz Navajanett Ayala CNP Work Phone: [facility] Comment on above: Multiple sclerosis ( HCC) Start: 07-23-2025 End: 07-23-2025 ambulatory DARON BENTON [facility] Start: 07-22-2025 End: 07-23-2025 Dr. Daron Benton [...] Facility:[facility] Start: 06-24-2025 ambulatory Lucas CHAWLA Facility:[facility] Start: 06-24-2025 Lucas Ayala Emilee Nolasco Start: 06-17-2025 ambulatory Lucas CHAWLA Facility:[facility] Start: 06-17-2025 Lucas Wyatt MD [facility] Emilee Nolasco Start: 06-16-2025 End: 06-16-[address] Daron Benton MD Work Phone: [facility] Start: 06-16-2025 End: 06-16-2025 Dr. Lucas Wyatt MD -[facility] Work Phone: Start: 06-12-2025 End: 06-12-[address] Daron Benton MD Work Phone: [facility] Start: 06-12-2025 End: 06-12-2025 Karen Larissa [employer] -[facility] Work Phone: Start: 06-10-2025 End: 06-10-[address] Daron Benton MD Work Phone: [facility] Start: 06-10-2025 End: 06-10-2025 Lucas Wyatt MD -[facility] Start: 06-09-2025 Kevin Friend DO -[facility] Start: 06-09-2025 Dr. Dex claros [facility] Work Phone: Start: 06-08-2025 Dr. Dex claros [facility] Work Phone: Start: 06-07-2025 Dr. Roman Mckeon MD - [facility] Work Phone: Start: 06-06-2025 Dr. Roman Mckeon MD - [facility] Work Phone: Start: 06-05-2025 Kevin Friend DO -[facility] Start: 06-05-2025 Dr. Roman Mckeon MD - [facility] Work Phone: Start: 06-04-2025 Kevin Friend DO -[facility] Start: 06-04-2025 Dr. Roman Mckeon MD - [facility] Work Phone: Start: 06-03-2025 [...] MRI Start: 05-20-2025 End: 05-20-2025 Lizz Lynn [employer] -[facility] Work Phone: Start: 05-20-2025 End: 05-20-2025 ambulatory Lizz Lynn Facility:[facility] Start: 05-19-2025 End: 05-19-2025 Dr. Daron Benton MD Work Phone: -Emergency Department Work Phone: Start: 05-19-2025 End: 05-19-2025 Emergency department patient visit Dr. Daron Benton MD Work Phone: -Emergency Department Start: 05-15-2025 End: 05-15-[address] Daron Benton MD Work Phone: -[facility] Start: 05-15-2025 End: 05-15-2025 Dr. Tye Barnett MD -[facility] Work Phone: Start: 05-15-2025 End: 05-15-2025 ambulatory Tye Barnett Facility:[facility] Start: 05-06-2025 End: 05-06-2025 Iona Bradley [employer] -[facility] Work Phone: Start: 05-06-2025 End: 05-06-[address] Daron Benton MD Work Phone: [facility] Work Phone: Start: 05-05-2025 End: 05-06-2025 Telephone encounter Lizz Lynn ROASTER OPERATOR - JUNIOR SOFTWARE ENGINEER Work Phone: [facility] Comment on above: Prior Authorization Start: 04-28-2025 ambulatory Negar Wilks ty:[facility] Start: 04-24-2025 End: 04-24-2025 Telephone encounter Lizz Lynn ROASTER OPERATOR - JUNIOR SOFTWARE ENGINEER Work Phone: [facility] Comment on above: Med Refill (Baclofen ) Start: 04-22-2025 [facility] Friend DO -[facility] Start: 04-22-2025 Dr. Roman Mckeon MD -[facility] Work Phone: Start: [facility] Start: 04-21-2025 Dr. Sommer archibald MD -[facility] Work Phone: Start: 04-20-2025 [facility] DO -[facility] Start: 04-20-2025 Dr. Roman [...] End: 04-11-2025 Dr. Ramírez [facility]of[facility] Work Phone: Start: 04-11-2025 End: 04-11-2025 Emergency department patient visit Dr. Ramírez Onofre MD -Emergency Department Work Phone: Start: 04-08-2025 End: 04-08-2025 Office outpatient visit 15 minutes Lizz Lynn APRN - JUNIOR SOFTWARE ENGINEER Work Phone: [facility] Comment on above: Multiple sclerosis ( HCC) (Primary Dx); Dysphasia Start: 04-08-2025 End: 04-08-2025 ambulatory [facility] Start: 04-02-2025 End: 04-02-2025 Dr. Daron Benton MD Work Phone: -Emergency Department Work Phone: Start: 04-02-2025 End: 04-02-2025 Emergency department patient visit Dr. Daron Benton MD Work Phone: [facility] Work Phone: Start: 03-19-2025 ambulatory [place] [facility] Facility:[facility] Start: 03-19-2025 Non-patient / Non-visit Dr. Ch[place] FOX -[facility] Start: 03-19-2025 End: 03-19-[address] Orlando Jacob MD -Cardiovascular Services Work Phone: Start: 03-19-2025 End: 03-19-2025 Dr. Orlando Jacob MD -[facility] Start: 03-19-2025 End: 03-19-2025 ambulatory [place] [facility] Facility:[facility] Start: 03-09-2025 End: 03-09-2025 Telephone encounter Lizz Lynn APRN - JUNIOR SOFTWARE ENGINEER Work Phone: [facility] Clinical Communication Comment on above: Orders (MRI order) Start: 03-04-2025 End: 03-04-2025 Office outpatient visit 15 minutes Lizz Lynn ROASTER OPERATOR - JUNIOR SOFTWARE ENGINEER Work Phone: [facility] Comment on above: Multiple sclerosis ( HCC) (Primary Dx); Mild cognitive impairment; Fatigue, unspecified type; Deficiency of multiple nutrient elements Start: 03-04-2025 End: 03-04-2025 ambulatory [facility] Start: 02-20-2025 End: 02-20-2025 Patient encounter procedure Betsey Lindquist PR -[facility] Work Phone: Start: 02-20-2025 End: 02-20-2025 Betsey PEÑA -[facility] Work Phone: Start: 02-20-2025 End: 02-20-2025 ambulatory Betsey PEÑA Facility:[facility] Start: 01-15-2025 End: 01-15-[address] Daron Benton MD -[facility] [place] Work Phone: Start: 01-15-2025 End: 01-15-2025 Dr. Daron Benton MD -[facility] [place] Work Phone: Start: 01-15-2025 End: 01-15-2025 ambulatory Daron Benton Facility:[facility] Start: 01-13-2025 Non-patient / Non-visit Dr. Damian silva [facility] Work Phone: Start: 01-13-2025 Dr. Dex claros [facility] Work Phone: Start: 01-12-2025 Non-patient / Non-visit Dr. Damian silva [facility] Work Phone: Start: 01-12-2025 Dr. Dex claros [facility] Work Phone: Start: 01-12-2025 Non-patient / Non-visit Dr. Rafaela Smiley MD -[facility] Start: 01-12-2025 Dr. Bhavik blevins MD -[facility] Start: 01-12-2025 ambulatory Kofi Weiner Facility:[facility] Start: 01-12-2025 Non-patient / Non-visit Dr. Kacie Weiner MD [facility] Start: 01-12-2025 Dr. Kofi Weiner MD [facility] Start: 01-11-2025 Non-patient / Non-visit Dr. Kacie Watson MD [facility] Inpatient [facility]icians Work Phone: Start: 01-11-2025 Dr. Neha simpson MD -[facility] Work Phone: Start: 01-11-2025 Non-patient / Non-visit Dr. Carlos A olea MD -[facility] Start: 01-11-2025 Dr. Carlos A Parikh MD -[facility] Start: 01-10-2025 ambulatory Sommer Resendiz Facility :[facility] Start: 01-10-2025 End: 01-13-2025 Evaluation and management of inpatient Dr. Dex Worrell DO -Progressive Care Unit Work Phone: Start: 01-10-2025 End: 01-13-2025 Dr. Dex Worrell DO -Progressive Care Unit Work Phone: Start: 12-24-2024 End: 12-24-2024 Patient encounter procedure [facility] [employer] [facility] Start: 12-24-2024 End: 12-24-2024 [employer] [facility] Work Phone: Start: 12-24-2024 End: 12-24-2024 ambulatory Daron Benton Facility:[facility] Start: 12-19-2024 End: 12-19-2024 Patient encounter procedure Betsey Lindquist PR -[facility] Work Phone: Start: 12-19-2024 End: 12-19-2024 Betsey Lindquist PR -[facility] Work Phone: Start: 12-19-2024 End: 12-19-2024 ambulatory Daron Benton Facility:[facility] Start: 12-17-2024 End: 12-17-2024 Dr. Jeffy [facility]oughby [facility] Work Phone: Start: 12-17-2024 End: 12-17-2024 Emergency department patient visit Daronchandler Benton Facility:[facility] Start: 12-11-2024 Dr. Neha simpson MD -[facility] Work Phone: Start: 12-10-2024 Dr. Neha simpson MD -[facility] Work Phone: Start: 12-10-2024 Dr. Kofi Weiner MD -[facility] Start: 12-09-2024 End: 12-11-2024 ambulatory Neha Watson Facility:[facility] Start: 12-09-2024 End: 12-11-2024 Dr. Neha Watson MD -Progressive Care Unit Work Phone: Start: 11-28-2024 End: 11-28-2024 Emergency department patient visit Yasmani Haynes Facility:[facility] Start: 11-24-2024 End: 11-24-2024 ambulatory Betsey PEÑA Facility:[facility] Start: 11-20-2024 End: 11-20-2024 Refill Lizz Lynn ROASTER OPERATOR - JUNIOR SOFTWARE ENGINEER Work Phone: [facility] Comment on above: Multiple sclerosis ( HCC) Start: 10-08-2024 End: 10-08-2024 ambulatory Negar Mckeon Facility:[facility] Start: 10-06-2024 [facility] Start: 10-03-2024 End: 10-03-2024 ambulatory [facility] Facility:[facility] Start: 10-01-2024 End: 10-01-2024 ambulatory [facility] Facility:[facility] Start: 09-14-2024 End: 09-15-2024 Refill Mamta Wood ROASTER OPERATOR - JUNIOR SOFTWARE ENGINEER Work Phone: [facility] Comment on above: Multiple sclerosis ( HCC) Start: 02-29-2024 End: 02-29-[address] Daron Benton Work Phone: [facility] Work Phone: Start: 02-29-2024 End: 02-29-2024 Dr. Daron Benton Work Phone: [facility] Start: 02-25-2024 Dr. Daron Benton Work Phone: [facility] Work Phone: Start: 02-25-2024 Dr. Daron Benton Work Phone: [facility] Start: 02-24-2024 Dr. Daron Benton Work Phone: [facility] Work Phone: Start: 02-24-2024 End: 02-24-2024 Dr. Daron Benton Work Phone: [facility] Work Phone: Start: 02-23-2024 End: 02-23-2024 Dr. Daron Benton Work Phone: [facility] Work Phone: Start: 02-23-2024 Dr. Daron Benton Work Phone: [facility] Start: 02-23-2024 Dr. Daron Benton Work Phone: [facility] Work Phone: Start: 02-22-2024 Dr. Daron Benton Work Phone: [facility] Start: 02-22-2024 Dr. Daron Benton Work Phone: [facility] Work Phone: Start: 02-21-2024 Dr. Daron Benton Work Phone: [facility] Start: 02-21-2024 Dr. Daron Benton Work Phone: [facility] Work Phone: Start: 02-20-2024 Dr. Daron Benton Work Phone: [facility] Work Phone: Start: 02-19-2024 Dr. Daron Benton Work Phone: [facility] Start: 02-19-2024 End: 02-25-2024 Evaluation and management of inpatient Dr. Daron Benton Work Phone: [facility] Work Phone: Start: 02-19-2024 End: 02-25-2024 Dr. Daron Benton Work Phone: [facility] Work Phone: Start: 02-11-2024 Ankit Main MD Work Phone: [facility] Neuroscience Comment on above: Multiple sclerosis ( HCC) Start: 01-18-2024 End: 01-18-2024 Emergency department patient visit Dr. Daron Benton Work Phone: [facility] Work Phone: Start: 01-18-2024 End: 01-18-2024 Dr. Daron Benton Work Phone: [facility]-Emergency Department Work Phone: Start: 01-18-2024 End: 01-18-[address] Daron Benton Work Phone: [facility] Work Phone: Start: 01-18-2024 End: 01-18-2024 Dr. Daron Benton Work Phone: [facility] Start: 01-11-2024 End: 01-11-2024 Emergency department patient visit Dr. Daron Benton Work Phone: [facility] Work Phone: Start: 01-11-2024 End: 01-11-2024 Dr. Daron Benton Work Phone: [facility]-Emergency Department Work Phone: Start: 01-08-2024 Dr. Daron Benton Work Phone: [facility]-Physical Therapy Work Phone: Start: 12-21-2023 End: 12-21-2023 Dr. Daron Benton Work Phone: [facility]-Laboratory Work Phone: Start: 12-21-2023 End: 12-21-2023 Dr. Daron Benton Work Phone: [facility] Work Phone: Start: 12-14-2023 End: 12-14-2023 Office outpatient visit 40 minutes Lizz Lynn APRN - JUNIOR SOFTWARE ENGINEER Work Phone: [facility] Comment on above: Multiple sclerosis ( HCC) (Primary Dx); Dizziness; Imbalance; Vision disturbance Start: 12-07-2023 Dr. Daron Benton Work Phone: [facility] Inpatient Physicians Work Phone: Start: 12-06-2023 Dr. Daron Benton Work Phone: [facility] Work Phone: Start: 12-05-2023 Dr. Daron Benton Work Phone: [facility] Work Phone: Start: 12-05-2023 Dr. Daron Benton Work Phone: [facility] Start: 12-04-2023 Dr. Daron Benton Work Phone: [facility] In[facility] Work Phone: Start: 12-04-2023 Dr. Daron Benton Work Phone: [facility] Start: 12-03-2023 Dr. Daron Benton Work Phone: [facility] In[facility]icians Work Phone: Start: 12-02-2023 End: 12-07-2023 Evaluation and management of inpatient Dr. Daron Benton Work Phone: [facility] Work Phone: Start: 12-02-2023 End: 12-07-2023 Dr. Daron Benton Work Phone: [facility] Phys[facility] Work Phone: Start: 11-27-2023 End: 11-27-2023 Emergency department patient visit Dr. Daron Benton Work Phone: [facility]-Emergency Department Work Phone: Start: 11-27-2023 End: 11-27-2023 Dr. Daron Benton Work Phone: [facility]-Emergency Department Work Phone: Start: 11-26-2023 End: 11-26-2023 Emergency department patient visit Dr. [facility]enton [facility] Start: 11-26-2023 End: 11-26-2023 Dr. Daron Benton [facility] Work Phone: Start: 11-21-2023 Non-patient / Non-visit Dr. Alex Benton Work Phone: [facility] Phys[facility] Work Phone: Start: 11-21-2023 Dr. Daron Benton Work Phone: [facility] Work Phone: Start: 11-20-2023 Non-patient / Non-visit Dr. Alex Benton Work Phone: [facility] Work Phone: Start: 11-20-2023 Dr. Daron Benton Work Phone: [facility] Work Phone: Start: 11-19-2023 Non-patient / Non-visit Dr. Alex Benton Work Phone: [facility] Start: 11-19-2023 Dr. Daron Benton Work Phone: [facility] Start: 11-18-2023 End: 11-21-2023 Evaluation and management of inpatient Dr. Daron Benton Work Phone: [facility] Care Unit Work Phone: Start: 11-18-2023 End: 11-21-2023 Dr. Daron Benton Work Phone: [facility] Work Phone: Start: 11-16-2023 Non-patient / Non-visit Dr. Alex Benton Work Phone: [facility] Inpatient Physicians Work Phone: Start: 11-16-2023 Dr. Daron Benton Work Phone: [facility] In[facility]icians Work Phone: Start: 11-15-2023 End: 11-16-2023 Evaluation and management of inpatient Dr. Daron Benton [facility] Work Phone: Start: 11-15-2023 End: 11-16-2023 Dr. Daron Benton [facility] Work Phone: Start: 11-02-2023 End: 11-02-[address] Daron Benton Work Phone: [facility] Work Phone: Start: 11-02-2023 End: 11-02-2023 Dr. Daron Benton Work Phone: [facility] Work Phone: Start: 10-26-2023 End: 10-26-2023 ambulatory TYE BARNETT MD Facility:A Start: 10-22-2023 End: 10-22-[address] Daron Benton Work Phone: [facility] Work Phone: Start: 10-22-2023 End: 10-22-[address] Daron Benton Work Phone: [facility]-Laboratory, Specimen Work Phone: Start: 10-22-2023 End: 10-22-2023 Dr. Daron Benton Work Phone: [facility]-Laboratory, Specimen Work Phone: Start: 10-22-2023 End: 10-22-[address] Daron Benton Work Phone: [facility] Work Phone: Start: 10-22-2023 End: 10-22-2023 Dr. Daron Benton Work Phone: [facility] Work Phone: Start: 10-05-2023 End: 10-05-2023 Office outpatient visit 40 minutes Kristopher Main MD Work Phone: [facility] Comment on above: Multiple sclerosis ( HCC) (Primary Dx); Cerebrovascular disease, unspecified; Primary hypertension Start: 10-05-2023 Telephone encounter Kristopher baez MD Work Phone: [facility] Comment on above: Orders Start: 10-05-2023 End: 10-05-2023 Emergency department patient visit Dr. Daron Benton Work Phone: [facility]-Emergency Department Work Phone: Start: 10-05-2023 End: 10-05-2023 Dr. Daron Benton Work Phone: [facility]-Emergency Department Work Phone: Start: 09-04-2023 End: 09-04-[address] Daron Benton Work Phone: [facility] Work Phone: Start: 09-04-2023 End: 09-04-2023 Dr. Daron Benton Work Phone: [facility] Work Phone: Start: 09-04-2023 End: 09-04-[address] Daron Benton Work Phone: [facility] Work Phone: Start: 09-04-2023 End: 09-04-[address] [facility] Benton [facility] Work Phone: Start: 09-04-2023 End: 09-04-2023 Dr. Daron Benton Work Phone: [facility] Work Phone: Start: 08-21-2023 End: 08-21-[address] Daron Benton Work Phone: [facility] Start: 08-21-2023 End: 08-21-2023 Dr. Daron Benton Work Phone: [facility] Start: 07-26-2023 End: 07-26-[address] Daron Benton Work Phone: [facility] Work Phone: Start: 07-26-2023 End: 07-26-[address] Daron Benton Work Phone: [facility] Work Phone: Start: 06-15-2023 Refill Kristopher Main MD Work Phone: [facility] Comment on above: Multiple sclerosis ( HCC) Start: 06-04-2023 Telephone encounter Kristopher baez MD Work Phone: [facility] Comment on above: Med Refill Start: 05-24-2023 End: 05-24-[address] Daron Benton Work Phone: [facility] Work Phone: Start: 05-10-2023 Ankit Main MD Work Phone: [facility] Start: 04-26-2023 End: 04-26-[address] Daron Benton Work Phone: [facility] Work Phone: Start: 04-26-2023 End: 04-26-[address] Daron Benton Work Phone: [facility] Start: 04-25-2023 End: 04-25-[address] Daron Benton Work Phone: [facility] Start: 04-14-2023 End: 04-14-[address] Daron Benton Work Phone: [facility] Work Phone: Start: 04-14-2023 End: 04-14-[address] Daron Benton Work Phone: [facility] Start: 04-10-2023 End: 04-10-[address] Daron Benton Work Phone: [facility] Work Phone: Start: 04-10-2023 End: 04-10-[address] Daron Benton Work Phone: [facility]-Nuclear Medicine, [facility] Start: 04-08-2023 End: 04-08-2023 Emergency department patient visit Dr. Daron Benton Work Phone: [facility]-Emergency Department Start: 04-02-2023 End: 04-02-[address] Daron Benton Work Phone: [facility] Start: 03-31-2023 End: 03-31-2023 Emergency department patient visit Dr. Daron Benton Work Phone: [facility]-Emergency Department Start: 03-20-2023 End: 03-20-[address] Daron Benton Work Phone: [facility] Work Phone: Start: 03-20-2023 End: 03-20-[address] Daron Benton Work Phone: [facility] Start: 03-16-2023 End: 03-16-2023 Emergency department patient visit Dr. Daron Benton Work Phone: [facility]-Emergency Department Start: 02-01-2023 End: 02-01-[address] Daron Benton Work Phone: [facility] Work Phone: Start: 02-01-2023 End: 02-01-[address] Daron Benton Work Phone: [facility]-Outpatient Bone Densitometry Start: 01-22-2023 End: 01-22-[address] Daron Benton Work Phone: [facility] Start: 12-27-2022 End: 12-27-[address] Daron Benton Work Phone: [facility] Start: 12-20-2022 End: 12-20-[address] Daron Benton Work Phone: [facility] Start: 12-13-2022 End: 12-13-[address] Daron Benton Work Phone: [facility] Start: 12-04-2022 End: 12-04-[address] Daron Benton Work Phone: [facility] Start: 11-24-2022 End: 11-24-2022 Emergency department patient visit Dr. Daron Benton Work Phone: [facility]-Emergency Department Start: 11-21-2022 Non-patient / Non-visit Dr. Alex Benton Work Phone: [facility] Start: 11-21-2022 End: 11-21-[address] Daron Benton Work Phone: [facility] Work Phone: Start: 11-21-2022 End: 11-21-[address] [facility] Start: 11-09-2022 End: 11-09-2022 SAME DAY STAY TYE BARNETT MD [facility] Start: 10-26-2022 End: 10-26-[address] Daron Benton Work Phone: [facility] Start: 10-20-2022 End: 10-20-[address] Daron Benton Work Phone: [facility] Start: 10-09-2022 End: 10-09-[address] Daron Benton Work Phone: [facility] Start: 09-26-2022 End: 09-26-2022 ambulatory [facility] Work Phone: Start: 09-26-2022 End: 09-26-2022 [facility] Start: 09-03-2022 Transcribe Orders Kristopher olson MD Work Phone: [facility] Nena Comment on above: Other specified symp toms and signs involving the circulatory and respiratory systems (Primary Dx); Cerebrovascular disease, unspecified Start: 08-23-2022 End: 08-23-[address] Daron Benton Work Phone: [facility] Work Phone: Start: 08-23-2022 End: 08-23-[address] Daron Benton Work Phone: [facility]-Cardiovascular Services Start: 05-16-2022 End: 05-16-[address] Daron Benton Work Phone: [facility] Start: 05-02-2022 End: 05-02-[address] Daron Benton Work Phone: [facility] Start: 02-22-2022 End: 02-22-[address] Daron Benton Work Phone: [facility] Start: 02-20-2022 End: 02-20-2022 Emergency department patient visit Dr. Daron Benton Work Phone: [facility]-Emergency Department Start: 02-18-2022 End: 02-18-2022 Emergency department patient visit Dr. Daron Benton Work Phone: [facility]-Emergency Department Start: 02-17-2022 End: 02-17-2022 Emergency department patient visit Dr. Daron Benton Work Phone: [facility]-Emergency Department Start: 02-14-2022 End: 02-14-2022 Emergency department patient visit Dr. Daron Benton Work Phone: [facility]-Emergency Department Start: 02-08-2022 End: 02-08-[address] Daron Benton Work Phone: [facility] Start: 01-23-2022 End: 01-23-2022 Emergency department patient visit Dr. Daron Benton Work Phone: [facility]-Emergency Department Start: 01-18-2022 End: 01-18-2022 Admission to same day surgery center Dr. Daron Benton Work Phone: [facility]-Market Research Specialist/Special Procedures Start: 11-17-[address] D[facility] Benton [facility] Start: 10-21-2021 End: 10-21-[address] Daron Benton Work Phone: [facility] Start: 08-11-[address] Daron Benton Work Phone: [facility] Start: 08-11-[address] Daron lin MD Work Phone: [facility] Start: 11-25-2020 End: 11-25-2020 Subsequent hospital visit by physician [facility] Work Phone: Radiology Comment on above: Cough [R05] Start: 12-21-2017 End: 12-21-2017 Ambulatory YOGESH ONOFRE [facility] Procedures Date Procedure Procedure Detail Performing Clinician Start: 09-21-[address] Daron Benton MD Work Phone: Start: 09-21-2025 CT angiography of neck vessels Dr. Daron Benton MD Work Phone: Start: 09-19-2025 CT cervical spine without contrast Dr. Marcelle Benton MD Work Phone: Start: 09-19-2025 CT of head without contrast Dr. Daron saleh MD Work Phone: Start: 09-18-2025 Plain x-ray of pelvis and lower extremity Dr. Daron Benton MD Work Phone: Start: 08-12-[address] Daron Benton MD Work Phone: Start: 08-11-2025 MRI of brain with contrast Dr. Daron swanson MD Work Phone: Start: 08-11-2025 Blood count smear mcrscp w/mnl difrntl wbc count Dr. Daron Benton MD Work Phone: Start: 08-11-2025 Mean corpuscular hemoglobin concentration determination Dr. Daron Benton MD Work Phone: Start: 08-11-[address] Daron Benton MD Work Phone: Start: 08-11-2025 Nucleated red blood cell count procedure Dr. Daron Benton MD Work Phone: Start: 08-11-2025 Platelet mean volume determination Dr. Marcelle Benton MD Work Phone: Start: 08-11-2025 Serum inorganic phosphate measurement Dr. Daron Benton MD Work Phone: Start: 08-10-2025 [facility] w/image complete Dr. Daron Benton MD Work Phone: Start: 08-09-2025 CT of abdomen and pelvis without contrast Dr. Daron Benton MD Work Phone: Start: 08-09-2025 CT of head without contrast Dr. Daron saleh MD Work Phone: Start: 08-08-2025 Benzodiazepine measurement, urine Dr. Alex Benton MD Work Phone: Start: 08-08-2025 Cocaine measurement, urine Dr. Daron swanson MD Work Phone: Start: 08-08-2025 Methadone measurement, urine Dr. Daron lin MD Work Phone: Start: 08-08-[address] Daron sandoval MD Work Phone: Start: 08-08-2025 Urine microscopy: red cells Dr. Daron saleh MD Work Phone: Start: 08-08-[address] Daron Benton MD Work Phone: Start: 08-08-2025 Urnls dip stick/tablet reagent auto microscopy Dr. Daron Benton MD Work Phone: Start: 08-08-2025 Calculation of international normalized ratio Dr. Daron Benton MD Work Phone: Start: 08-08-2025 Plain X-ray of shoulder Dr. Daron Llanos Work Phone: Start: 08-08-2025 CT cervical spine without contrast Dr. Marcelle Benton MD Work Phone: Start: 08-08-[address] Daron Benton MD Work Phone: Start: 08-08-2025 CT of head without contrast Dr. Daron saleh MD Work Phone: Start: 08-08-2025 Plain chest X-ray Dr. Daron Benton MD Work Phone: Start: 08-08-2025 Plain radiography of pelvis Dr. Daron saleh MD Work Phone: Start: 08-08-[address] Daron Benton MD Work Phone: Start: 08-06-[address] Daron Benton MD Work Phone: Start: 08-05-2025 Blood count smear mcrscp w/mnl difrntl wbc count Dr. Daron Benton MD Work Phone: Start: 08-05-2025 Mean corpuscular hemoglobin concentration determination Dr. Daron Benton MD Work Phone: Start: 08-05-[address] Daron Benton MD Work Phone: [...] Daron Benton MD Work Phone: Start: 07-31-[address] Daron Benton MD Work Phone: [...] Daron Benton MD Work Phone: Start: 07-22-[address] Daron Benton MD Work Phone: [...] Daron Benton MD Work Phone: Start: 06-24-[address] Daron Benton MD Work Phone: [...] Daron Benton MD Work Phone: Start: 06-17-[address] Daron Benton MD Work Phone: [...] Daron Benton MD Work Phone: Start: 06-10-[address] Daron Benton MD Work Phone: [...] Daron Benton MD Work Phone: Start: 06-08-[address] Daron Benton MD Work Phone: [...] of brain without contrast Dr. Daron Olson [facility] Work Phone: Start: 12-05-2023 CT of head without contrast Dr. Daron Scott Work Phone: Start: 12-04-2023 Diagnostic radiography of abdomen Dr. Alex Benton Work Phone: Start: 12-03-2023 CT angiography of head and neck Dr. Daron Benton Work Phone: Start: 12-03-2023 Plain chest X-ray Dr. Daron Benton Work Phone: Start: 12-03-2023 CT of head without contrast Dr. Daron saleh Work Phone: Start: 12-02-[address] [...] 03-16-2023 Radiography of thoracic spine [facility] Work Phone: Start: 03-16-2023 X-ray of both [...] Radiologic exam chest 2 views Paloma Thompson APRN.JUNIOR SOFTWARE ENGINEER Work Phone: Start: 04-19-2016 Lipid 1996 panel [...] BARNETT MD Imelda Llanos Urine culture Dr. Daron Benton Work Phone: Plan of Treatment Date Care Activity Detail Author Start: 02-09-2031 DTaP/Tdap/Td Vaccines (3 - Td or Tdap) DTaP/Tdap/Td Vaccines (3 - Td or Tdap) [facility] Start: 02-09-2031 Urine microalbumin profile DTaP,Tdap,Td Vaccine (3 - Td or Tdap) [facility] Start: 2029 RSV Vaccine (1 - 1-dose 75+ series) RSV Vaccine (1 - 1-dose 75+ series) [facility] Start: 10-20-2025 End: 10-20-2025 Patient encounter procedure 10/20/2025 2:20 PM EST Office Visit [facility] [address] [place] [id number] Kristopher Main MD [address] [place] [address] [facility] Start: 09-19-2025 [facility] Start: 08-12-2025 Patient discharge [facility] Start: 08-12-2025 [facility] Start: 08-10-2025 Removal of urinary catheter [facility] Start: 08-09-2025 Application of intermittent pneumatic compression device [facility] Start: 08-09-2025 Following clinical pathway protocol [facility] Start: 08-09-2025 Aspiration precautions [facility] Start: 08-09-2025 Assessment of risk of venous thromboembolism [facility] Start: 08-09-2025 Fall prevention [facility] Start: 08-09-2025 Inhalation therapy procedure [facility] Start: 08-09-2025 Insertion of catheter into peripheral vein [facility] Start: 08-09-2025 Introduction of urinary catheter [facility] Start: 08-09-2025 Measuring intake and output [facility] Start: 08-09-2025 Oxygen therapy [facility] Start: 08-09-2025 Providing care according to standard [facility] Start: 08-09-2025 Provision of activity privileges [facility] Start: 08-09-2025 Referral for physical therapy [facility] Start: 08-09-2025 Referral to occupational therapist [facility] Start: 08-09-2025 Referral to service [facility] Start: 08-09-2025 [facility] Start: 08-09-2025 Patient referral to dietitian [facility] Start: 08-08-2025 Admission procedure [facility] Start: 08-05-2025 [facility] Start: 08-05-2025 Administration of drug or medicament by intravenous push [facility] Start: 08-05-2025 Emergency dept visit high severity&threat funcj [facility] Start: 08-05-2025 Iv infusion hydration each additional hour [facility] Start: 08-05-2025 End: 08-05-2025 Evaluation of diagnostic study results [facility] Start: 08-01-2025 [facility] Start: 07-31-2025 [facility] Start: 07-23-2025 [facility] Start: 07-20-2025 COVID-19 Vaccine ( season) COVID-19 Vaccine ( season) [facility] Start: 07-20-2025 Influenza vaccination [facility] Start: 07-05-2025 [facility] Start: 06-09-2025 Patient discharge [facility] Start: 06-08-2025 Referral for physical therapy [facility] Start: 06-08-2025 Referral to occupational therapist [facility] Start: 06-08-2025 Referral to service [facility] Start: 06-05-2025 Referral to service [facility] Start: 06-05-2025 Following clinical pathway protocol [facility] Start: 06-05-2025 Oxygen therapy [facility] Start: 06-05-2025 Administration of blood product [facility] Start: 06-04-2025 Following clinical pathway protocol [facility] Start: 06-04-2025 Application of intermittent pneumatic compression device [facility] Start: 06-03-2025 [facility] Start: 06-03-2025 End: 07-16-2025 Patient encounter procedure 06/03/2025 12:30 PM EDT Office Visit [facility] [address] [place] [address] Lizz Lynn APRN - CNP [address] [place] [address] [facility] Start: 06-03-2025 End: 06-03-2025 [facility] Start: 06-03-2025 Following clinical pathway protocol [facility] Start: 06-03-2025 Ambulation without limitation [facility] Start: 06-03-2025 Assessment of risk of venous thromboembolism [facility] Start: 06-03-2025 Elevation of affected extremity [facility] Start: 06-03-2025 Inhalation therapy procedure [facility] Start: 06-03-2025 Insertion of catheter into peripheral vein [facility] Start: 06-03-2025 Measuring intake and output [facility] Start: 06-03-2025 Notification of physician [facility] Start: 06-03-2025 Patient education [facility] Start: 06-03-2025 Providing care according to standard [facility] Start: 06-03-2025 Referral to gastroenterology service [facility] Start: 06-03-2025 Administration of blood product [facility] Start: 06-03-2025 Verification routine [facility] Start: 06-03-2025 Hospital admission, emergency, from emergency room, medical nature [facility] Start: 06-03-2025 Admission procedure [facility] Start: 06-03-2025 Leukocyte reduced red blood cells [facility] Start: 06-03-2025 Administration of blood product [facility] Start: 06-03-2025 Patient referral to dietitian [facility] Start: 05-19-2025 [facility] Start: 04-22-2025 Patient discharge [facility] Start: 04-21-2025 [facility] Start: 04-20-2025 Insertion of nasogastric tube [facility] Start: 04-20-2025 [facility] Start: 04-20-2025 End: 04-20-2025 [facility] Start: 04-20-2025 Referral to service [facility] Start: 04-19-2025 Referral to gastroenterology service [facility] Start: 04-19-2025 Administration of blood product [facility] Start: 04-18-2025 Application of intermittent pneumatic compression device [facility] Start: 04-18-2025 Ambulation without limitation [facility] Start: 04-18-2025 Assessment of risk of venous thromboembolism [facility] Start: 04-18-2025 Insertion of catheter into peripheral vein [facility] Start: 04-18-2025 Providing care according to standard [facility] Start: 04-18-2025 [facility] Start: 04-18-2025 Following clinical pathway protocol [facility] Start: 04-18-2025 Verification routine [facility] Start: 04-18-2025 Admission procedure [facility] Start: 04-18-2025 Hospital admission, emergency, from emergency room, medical nature [facility] Start: 04-18-2025 End: 04-19-2025 [facility] Start: 04-18-2025 [facility] Start: 04-18-2025 Patient referral to dietitian [facility] Start: 04-17-2025 Emergency dept visit high severity&threat funcj [facility] Start: 04-11-2025 [facility] Start: 04-02-2025 [facility] Start: 03-04-2025 End: 03-04-2026 Cobalamin (Vitamin B12) [Mass/volume] in Serum or Plasma Vitamin B12 Lab Routine Mild cognitive impairment Deficiency of multiple nutrient elements Expected: 03/04/2025 (Approximate), Expires: 03/04/2026 [facility] [employer] Comment on above: Expected: 03/04/2025 (Approximate), Expi res: 03/04/2026 Start: 03-04-2025 End: 03-04-2026 Electroencephalogram EEG Neurology Routine Mild cognitive impairment Expected: 03/04/2025 (Approximate), Expires: 03/04/2026 [facility] [employer] [facility] Work Phone: Comment on above: Expected: 03/04/2025 (Approximate), Expi res: 03/04/2026 Start: 03-04-2025 End: 03-04-2026 MR Brain WO contrast MR brain wo contrast Imaging Routine Mild cognitive impairment Expected: 03/04/2025, Expires: 03/04/2026 [facility] [employer] Comment on above: Expected: 03/04/2025, Expires: Start: 03-04-2025 End: 03-04-2026 Thyrotropin [Units/volume] in Serum or Plasma TSH Lab Routine Mild cognitive impairment Fatigue, unspecified type Expected: 03/04/2025 (Approximate), Expires: 03/04/2026 [facility] [employer] Comment on above: Expected: 03/04/2025 (Approximate), Expi res: 03/04/2026 Start: 03-04-2025 End: 03-04-2026 Vitamin B1 (BKR [facility]) Vitamin B1 ([facility]) Lab Routine Mild cognitive impairment Deficiency of multiple nutrient elements Expected: 03/04/2025 (Approximate), Expires: 03/04/2026 [facility] [employer] Comment on above: Expected: 03/04/2025 (Approximate), Expi res: 03/04/2026 Start: 03-04-2025 End: 03-04-2026 Vitamin B6 Vitamin B6 Lab Routine Mild cognitive impairment Deficiency of multiple nutrient elements Expected: 03/04/2025 (Approximate), Expires: 03/04/2026 [facility] [employer] Comment on above: Expected: 03/04/2025 (Approximate), Expi res: 03/04/2026 Start: 01-13-2025 Patient discharge [facility] Start: 01-11-2025 Following clinical pathway protocol [facility] Start: 01-11-2025 Assessment of risk of venous thromboembolism [facility] Start: 01-11-2025 Fall prevention [facility] Start: 01-11-2025 Inhalation therapy procedure [facility] Start: 01-11-2025 Insertion of catheter into peripheral vein [facility] Start: 01-11-2025 Introduction of urinary catheter [facility] Start: 01-11-2025 Measuring intake and output [facility] Start: 01-11-2025 Oxygen therapy [facility] Start: 01-11-2025 Providing care according to standard [facility] Start: 01-11-2025 Provision of activity privileges [facility] Start: 01-11-2025 Referral to beer brewer [facility] Start: 01-11-2025 Referral to occupational therapist [facility] Start: 01-11-2025 Referral to service [facility] Start: 01-11-2025 Tobacco use cessation education [facility] Start: 01-11-2025 [facility] Start: 01-11-2025 Patient referral to dietitian [facility] Start: 01-10-2025 Admission procedure [facility] Start: 12-17-2024 [facility] Start: 12-11-2024 Patient discharge [facility] Start: 12-10-2024 Cardiac monitoring [facility] Start: 12-10-2024 Notification of physician [facility] Start: 12-10-2024 Oxygen therapy [facility] Start: 12-10-2024 Patient discharge [facility] Start: 12-10-2024 Patient education [facility] Start: 12-10-2024 Provision of activity privileges [facility] Start: 12-10-2024 Pulse taking [facility] Start: 12-10-2024 Systemic arterial pressure monitoring [facility] Start: 12-10-2024 Taking patient vital signs [facility] Start: 12-10-2024 Vascular disease risk assessment [facility] Start: 12-10-2024 Vital signs measurements [facility] Start: 12-10-2024 Wound care [facility] Start: 12-10-2024 [facility] Start: 12-09-2024 Referral to beer brewer [facility] Start: 12-09-2024 Following clinical pathway protocol [facility] Start: 12-09-2024 Assessment of risk of venous thromboembolism [facility] Start: 12-09-2024 Insertion of catheter into peripheral vein [facility] Start: 12-09-2024 Measuring intake and output [facility] Start: 12-09-2024 Oxygen therapy [facility] Start: 12-09-2024 Providing care according to standard [facility] Start: 12-09-2024 Provision of activity privileges [facility] Start: 12-09-2024 Referral to occupational therapist [facility] Start: 12-09-2024 Referral to service [facility] Start: 12-09-2024 Tobacco use cessation education [facility] Start: 12-09-2024 [facility] Start: 12-09-2024 Admission procedure [facility] Start: 12-09-2024 Patient referral to dietitian [facility] Start: 12-08-2024 End: 12-08-2024 Patient encounter procedure 12/08/2024 11:30 AM EST [facility] [address] [place] [address] Mamta Wood APRN - CNP [address] [place] [address] [facility] Start: 11-19-2024 Medicare Advantage Annual Wellness Visit Medicare Advantage Annual Wellness Visit [facility] Start: 07-20-2024 Covid-19 Vaccine ( season) Covid-19 Vaccine ( season) [facility] Start: 07-20-2024 COVID-19 Vaccine ( season) COVID-19 Vaccine ( season) [facility] Start: 07-20-2024 Influenza vaccination Influenza Vaccine (#[facility]) [facility] Start: 04-04-2024 Creatinine measurement Creatinine Level [facility] Start: 04-04-2024 Potassium measurement Potassium Level [facility] Start: 02-25-2024 Patient discharge [facility] Start: 02-23-2024 End: 02-24-2024 [facility] Start: 02-22-2024 End: 02-22-2024 Administration of blood product [facility] Start: 02-22-2024 Transfusion of red blood cells [facility] Start: 02-22-2024 Referral to service [facility] Start: 02-22-2024 Blood chemistry [facility] Start: 02-22-2024 [facility] Start: 02-21-2024 Oxygen therapy [facility] Start: 02-21-2024 Blood chemistry [facility] Start: 02-21-2024 End: 02-22-2024 [facility] Start: 02-20-2024 Referral to occupational therapist [facility] Start: 02-20-2024 Referral to service [facility] Start: 02-20-2024 [facility] Start: 02-20-2024 Blood chemistry [facility] Start: 02-20-2024 End: 02-20-2024 [facility] Start: 02-19-2024 [facility] Start: 02-19-2024 Following clinical pathway protocol [facility] Start: 02-19-2024 Ambulation without limitation [facility] Start: 02-19-2024 Assessment of risk of venous thromboembolism [facility] Start: 02-19-2024 Elevation of head of bed [facility] Start: 02-19-2024 Inhalation therapy procedure [facility] Start: 02-19-2024 Insertion of catheter into peripheral vein [facility] Start: 02-19-2024 Measuring intake and output [facility] Start: 02-19-2024 Patient education [facility] Start: 02-19-2024 Providing care according to standard [facility] Start: 02-19-2024 Referral to gastroenterology service [facility] Start: 02-19-2024 End: 02-19-2024 [facility] Start: 02-19-2024 End: 02-19-2024 [facility] Start: 02-19-2024 Bacteria identified in Sputum by Culture [facility] Start: 02-19-2024 Legionella pneumophila Ag [Presence] in Urine [facility] Start: 02-19-2024 Streptococcus pneumoniae antigen assay [facility] Start: 02-19-2024 Verification routine [facility] Start: 02-19-2024 Admission procedure [facility] Start: 02-19-2024 End: 02-19-2024 Blood culture [facility] Start: 02-19-2024 [facility] Start: 02-19-2024 Administration of blood product [facility] Start: 02-19-2024 End: 02-20-2024 [facility] Start: 01-25-2024 End: 01-25-2024 Patient encounter procedure 01/25/2024 12:30 PM EST Office Visit [facility] [address] [place] [id number] Lizz Lynn, ROASTER OPERATOR - JUNIOR SOFTWARE ENGINEER [address] [place] [id number] [facility] Start: 01-18-2024 [facility] Start: 01-11-2024 [facility] Start: 01-11-2024 [facility] Start: 12-07-2023 Patient discharge [facility] Start: 12-07-2023 Referral to service [facility] Start: 12-06-2023 Care planning and problem solving actions [facility] Start: 12-05-2023 [facility] Start: 12-04-2023 End: 12-05-2023 [facility] Start: 12-04-2023 Following clinical pathway protocol [facility] Start: 12-03-2023 End: 12-04-2023 [facility] Start: 12-03-2023 Care planning and problem solving actions [facility] Start: 12-03-2023 Care planning and problem solving actions [facility] Start: 12-03-2023 Speech therapy assessment [facility] Start: 12-03-2023 Inhalation therapy procedure [facility] Start: 12-02-2023 [facility] Start: 12-02-2023 Providing care according to standard [facility] Start: 12-02-2023 Ambulation without limitation [facility] Start: 12-02-2023 Assessment of risk of venous thromboembolism [facility] Start: 12-02-2023 Insertion of catheter into peripheral vein [facility] Start: 12-02-2023 Measuring intake and output [facility] Start: 12-02-2023 Oxygen therapy [facility] Start: 12-02-2023 Providing care according to standard [facility] Start: 12-02-2023 Referral to occupational therapist [facility] Start: 12-02-2023 Referral to service [facility] Start: 12-02-2023 Telemedicine consultation with patient [facility] Start: 12-02-2023 [facility] Start: 12-02-2023 Blood culture [facility] Start: 12-02-2023 Verification routine [facility] Start: 12-02-2023 Hospital admission, emergency, from emergency room, medical nature [facility] Start: 12-02-2023 Admission procedure [facility] Start: 12-02-2023 [facility] Start: 12-02-2023 End: 12-02-2023 [facility] Start: 12-02-2023 [facility] Start: 11-27-2023 [facility] Start: 11-27-2023 Oxygen therapy [facility] Start: 11-27-2023 [facility] Start: 11-26-2023 [facility] Start: 11-21-2023 Patient discharge [facility] Start: 11-19-2023 Advance Directive Discussion Advance Directive Discussion [facility] Start: 11-19-2023 Medicare Advantage Annual Wellness Visit Medicare Advantage Annual Wellness Visit [facility] Start: 11-18-2023 Application of intermittent pneumatic compression device [facility] Start: 11-18-2023 Provision of activity privileges [facility] Start: 11-18-2023 Assessment of risk of venous thromboembolism [facility] Start: 11-18-2023 Fall prevention [facility] Start: 11-18-2023 Insertion of catheter into peripheral vein [facility] Start: 11-18-2023 Introduction of urinary catheter [facility] Start: 11-18-2023 Measuring intake and output [facility] Start: 11-18-2023 Providing care according to standard [facility] Start: 11-18-2023 Referral to occupational therapist [facility] Start: 11-18-2023 Referral to service [facility] Start: 11-18-2023 [facility] Start: 11-18-2023 Following clinical pathway protocol [facility] Start: 11-18-2023 Admission procedure [facility] Start: 11-16-2023 Patient discharge [facility] Start: 11-16-2023 Plain chest X-ray Chest 1 View (Portable) [facility] Start: 11-16-2023 XR Chest Single view [facility] Start: 11-16-2023 [facility] Start: 11-15-2023 Respiratory secretion precautions [facility] Start: 11-15-2023 Following clinical pathway protocol [facility] Start: 11-15-2023 Aspiration precautions [facility] Start: 11-15-2023 Assessment of risk of venous thromboembolism [facility] Start: 11-15-2023 Fall prevention [facility] Start: 11-15-2023 Incentive spirometry [facility] Start: 11-15-2023 Inhalation therapy procedure [facility] Start: 11-15-2023 Insertion of catheter into peripheral vein [facility] Start: 11-15-2023 Introduction of urinary catheter [facility] Start: 11-15-2023 Measuring intake and output [facility] Start: 11-15-2023 Oxygen therapy [facility] Start: 11-15-2023 Providing care according to standard [facility] Start: 11-15-2023 Provision of activity privileges [facility] Start: 11-15-2023 Referral to occupational therapist [facility] Start: 11-15-2023 Referral to service [facility] Start: 11-15-2023 [facility] Start: 11-15-2023 Verification routine [facility] Start: 11-15-2023 Admission procedure [facility] Start: 11-15-2023 Hospital admission, emergency, from emergency room, medical nature [facility] Start: 11-15-2023 [facility] Start: 11-15-2023 Consultation [facility] Start: 10-05-2023 [facility] Start: 10-05-2023 [facility] Start: 07-20-2023 COVID-19 Vaccine ( season) COVID-19 Vaccine ( season) [facility] Start: 07-20-2023 Influenza vaccination Influenza Vaccine (#1) [facility] Start: 04-08-2023 [facility] Start: 04-04-2023 End: 04-04-2023 Patient encounter procedure 04/04/2023 Office Visit Neurology Kristopher Main MD [address] [place] [address] [facility] [place] Start: 03-31-2023 [facility] Start: 02-01-2023 Dual energy X-ray absorptiometry Dexa Bone Density Study [facility] Start: 02-20-2022 [facility] Work Phone: Start: 10-21-2021 Patient referral [facility] Work Phone: Start: 04-19-2021 Lipid panel Lipid Panel [facility] Start: 01-19-2021 Screening for malignant neoplasm of colon [facility] Start: 2019 Pneumococcal Vaccine: 65+ (2 of 2 - PCV) Pneumococcal Vaccine: 65+ (2 of 2 - PCV) [facility] Start: 2019 Screening for osteoporosis Bone Density Screening [facility] Start: 12-08-2016 Lipid panel Lipid Screening [facility] Start: 08-19-2016 Diabetes Screening Diabetes Screening [facility] Start: 2014 RSV Immunization aged 60 or older (1 - 1-dose 60+ series) RSV Immunization aged 60 or older (1 - 1-dose 60+ series) [facility] Start: 2014 RSV Immunization for Adults (1 - Risk 60-74 years 1-dose series) RSV Immunization for Adults (1 - Risk 60-74 years 1-dose series) [facility] Start: 08-26-2010 Screening for malignant neoplasm of breast Mammogram Screening [facility] Start: 08-19-2009 Pneumococcal Vaccine: 50+ Years (2 of 2 - PCV) Pneumococcal Vaccine: 50+ Years (2 of 2 - PCV) [facility] Start: 08-19-2009 Pneumococcal Vaccine: 65+ Years (2 - PCV) Pneumococcal Vaccine: 65+ Years (2 - PCV) [facility] Start: 08-19-2009 Pneumococcal Vaccine: 65+ Years (2 of 2 - PCV) Pneumococcal Vaccine: 65+ Years (2 of 2 - PCV) [facility] Start: 2004 Shingrix Vaccine (1 of 2) Shingrix Vaccine (1 of 2) [facility] Start: 2004 Zoster Vaccines (1 of 2) Zoster Vaccines (1 of 2) [facility] Start: 1999 Screening for malignant neoplasm of colon [facility] Start: 1994 Screening for malignant neoplasm of breast Mammogram [facility] Start: 1972 Anxiety Screening Anxiety Screening [facility] Start: 1972 Depression Screening Depression Screening [facility] Start: 1972 Diabetes mellitus screening Diabetes Screening [facility] Start: 1972 Hepatitis C screening Hepatitis C Screening [facility] Start: 1966 Depression Monitoring Depression Monitoring [facility] Start: 1966 Depression Screening Depression Screening [facility] Start: 1954 Echocardiography Echocardiogram [facility] Start: 1954 Hepatitis B Vaccines (1 of 3 - 3-dose series) Hepatitis B Vaccines (1 of 3 - 3-dose series) [facility] Start: 1954 Lipid panel Lipid Panel [facility] Start: 1954 Medicare Advantage Annual Wellness Visit (AWV) Medicare Advantage Annual Wellness Visit (AWV) [facility] Start: 1954 Screening for malignant neoplasm of colon [facility] Start: 1954 Screening for osteoporosis Bone Density Scan [facility] Start: 1954 Thyroid stimulating hormone measurement TSH Level [facility] Alanine aminotransfe rase [Enzymatic activity/volume] in Serum or Plasma [facility] Alanine aminotransfe rase [Enzymatic activity/volume] in Serum or Plasma [facility] Alanine aminotransfe rase [Enzymatic activity/volume] in Serum or Plasma [facility] Albumin [Mass/volume ] in Serum or Plasma [facility] Albumin [Mass/volume ] in Serum or Plasma [facility] Albumin [Mass/volume ] in Serum or Plasma [facility] Albumin/Globulin [Ma ss Ratio] in Serum or Plasma by Electrophoresis [facility] Work Phone: Albumin/Globulin [Ma ss Ratio] in Serum or Plasma by Electrophoresis [facility] Alkaline phosphatase [Enzymatic activity/volume] in Serum or Plasma [facility] Alkaline phosphatase [Enzymatic activity/volume] in Serum or Plasma [facility] Alkaline phosphatase [Enzymatic activity/volume] in Serum or Plasma [facility] Alpha 1 antitrypsin [Mass/volume] in Serum or Plasma [facility] Anion gap measurement [facility] Anion gap measurement [facility] Anion gap measurement [facility] Aspartate aminotrans ferase [Enzymatic activity/volume] in Serum or Plasma [facility] Aspartate aminotrans ferase [Enzymatic activity/volume] in Serum or Plasma [facility] Aspartate aminotrans ferase [Enzymatic activity/volume] in Serum or Plasma [facility] Bacteria identified in Urine by Culture Urine Culture [facility] Bilirubin measurement, urine [facility] Bilirubin measurement, urine [facility] Bilirubin, total measurement [facility] Bilirubin, total measurement [facility] Bilirubin, total measurement [facility] BUN/Creatinine ratio [facility] BUN/Creatinine ratio [facility] BUN/Creatinine ratio [facility] Calcium [Mass/volume ] in Serum or Plasma [facility] Calcium [Mass/volume ] in Serum or Plasma [facility] Calcium [Mass/volume ] in Serum or Plasma [facility] Carbon dioxide, tota l [Moles/volume] in Serum or Plasma [facility] Carbon dioxide, tota l [Moles/volume] in Serum or Plasma [facility] Carbon dioxide, tota l [Moles/volume] in Serum or Plasma [facility] Cardiac event recording [facility] CBC W Auto Different ial panel - Blood [facility] Chloride [Moles/volu me] in Serum or Plasma [facility] Chloride [Moles/volu me] in Serum or Plasma [facility] Chloride [Moles/volu me] in Serum or Plasma [facility] Creatinine [Moles/vo lume] in Serum or Plasma [facility] Creatinine [Moles/vo lume] in Serum or Plasma [facility] Creatinine [Moles/vo lume] in Serum or Plasma [facility] Electrophoresis: albumin [facility] Work Phone: Electrophoresis: albumin [facility] Electrophoresis: [id number] [facility] Work Phone: Electrophoresis: [id number] [facility] Electrophoresis: [id number] [facility] Work Phone: Electrophoresis: [id number] [facility] Electrophoresis: francisco j ma globulin [facility] Work Phone: Electrophoresis: francisco j ma globulin [facility] Globulin measurement [facility] Work Phone: Globulin measurement [facility] Glucose [Mass/volume ] in Serum or Plasma [facility] Glucose [Mass/volume ] in Serum or Plasma [facility] Glucose [Mass/volume ] in Serum or Plasma [facility] Hematocrit [Volume F raction] of Blood [facility] Hematocrit [Volume F raction] of Blood [facility] Hematocrit [Volume F raction] of Blood [facility] Hematocrit [Volume F raction] of Blood [facility] Hemoglobin [Mass/vol ume] in Blood [facility] Hemoglobin [Mass/vol ume] in Blood [facility] Hemoglobin [Mass/vol ume] in Blood [facility] Hemoglobin [Mass/vol ume] in Blood [facility] Hemoglobin [Presence ] in Urine [facility] Hemoglobin [Presence ] in Urine [facility] Measurement of keton es in urine using dipstick [facility] Measurement of keton es in urine using dipstick [facility] Measurement of renal function [facility] Measurement of renal function [facility] Measurement of renal function [facility] Microscopic urinalysis [facility] Microscopic urinalysis [facility] NM Heart Views W str ess and W radionuclide IV [facility] Organism count, micr oscopic method [facility] Patient Education [facility] Work Phone: Patient referral [facility] Work Phone: pH of Urine [facility] pH of Urine [facility] Potassium [Moles/vol ume] in Serum or Plasma [facility] Potassium [Moles/vol ume] in Serum or Plasma [facility] Potassium [Moles/vol ume] in Serum or Plasma [facility] Protein electrophore sis panel - Serum or Plasma [facility] Work Phone: Protein electrophore sis panel - Serum or Plasma [facility] Serum protein electrophoresis [facility] Work Phone: Serum protein electrophoresis [facility] Sodium [Moles/volume ] in Serum or Plasma [facility] Sodium [Moles/volume ] in Serum or Plasma [facility] Sodium [Moles/volume ] in Serum or Plasma [facility] Specific gravity of Urine [facility] Specific gravity of Urine [facility] Total globulins measurement [facility] Work Phone: Total globulins measurement [facility] Total protein measurement [facility] Total protein measurement [facility] Total protein measurement [facility] Troponin T.cardiac [Mass/volume] in Serum or Plasma by High sensitivity method [facility] Urea nitrogen [Mass/ volume] in Serum or Plasma [facility] Urea nitrogen [Mass/ volume] in Serum or Plasma [facility] Urea nitrogen [Mass/ volume] in Serum or Plasma [facility] Urinalysis, blood, qualitative [facility] Urine blood test [facility] Urine dipstick for glucose [facility] Urine dipstick for glucose [facility] Urine dipstick for l eukocyte esterase [facility] Urine dipstick for l eukocyte esterase [facility] Urine dipstick for nitrite [facility] Urine dipstick for nitrite [facility] Urine dipstick for protein [facility] Urine dipstick for protein [facility] Urine examination [facility] Urine examination [facility] Urine microscopy: ep ithelial cells [facility] Urine microscopy: ep ithelial cells [facility] Urine Microscopy: wh ite cells [facility] Urobilinogen [Presen ce] in Urine [facility] Urobilinogen [Presen ce] in Urine [facility] US Heart Transesophageal [facility] White blood cell count [facility] Immunizations Immunization Date Immunization Notes Care Provider [facility] 08-19-2024 influenza, high dose seasonal, preservative-free Dr. 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 Daron Benton Work Phone: [facility] 09-16-2022 Influenza High-Dose Quadrivalent Dr. Daron Benton Work Phone: [facility] 09-16-2022 influenza virus vacc ine, unspecified formulation Kristopher Main MD Work Phone: [facility] 05-17-2022 Covid (Moderna) Dr. Daron Scott Work Phone: [facility] 09-21-2021 Covid (Moderna) Dr. Daron Scott Work Phone: [facility] 02-09-2021 tetanus toxoid, redu maya diphtheria toxoid, and acellular pertussis vaccine, adsorbed Dr. Daron Benton Work Phone: [facility] 01-13-2021 Covid (Moderna) Dr. Daron Scott Work Phone: [facility] 12-16-2020 Covid (Moderna) Dr. Daron Scott Work Phone: [facility] 08-13-2019 Influenza, high dose seasonal Dr. Daron Benton MD Work Phone: [facility] 08-13-2019 influenza, high dose seasonal, preservative-free Dr. Daron Benton Work Phone: [facility] 08-13-2019 Dr. Daron Benton MD Work Phone: [facility] 08-13-2019 influenza virus vacc ine, unspecified formulation [employer] Work Phone: [facility] 08-20-2018 influenza, injectabl e, quadrivalent, preservative free Dr. Daron Benton Work Phone: [facility] 07-20-2011 influenza virus vacc ine, unspecified formulation [employer] Work Phone: [facility] 09-01-2009 influenza virus vacc ine, unspecified formulation [employer] Work Phone: [facility] 09-18-2008 influenza virus vacc ine, unspecified formulation [employer] Work Phone: [facility] 08-19-2008 pneumococcal polysaccharide vaccine, 23 valent [employer] Work Phone: [facility] 08-23-2006 diphtheria and tetan us toxoids, adsorbed for pediatric use [employer] Work Phone: [facility] Payers Date Payer Category Payer Self-pay [id number] 2022 Medicare [facility]IC[facility] [id number] 2019 Medicaid [employer] [facility] MEDICA[facility] [id number] 2019-Present [phone] [address] [place] [address] Medicaid [id number] 2017 Medicare [id number] 2016 Medicare [id number] 2016 Unknown [id number] 1954 Unknown [id number] Unknown [id number] Unknown [id number] Unknown [id number] Unknown [id number] Unknown [id number] Unknown [id number] Unknown [id number] 2.16.840.1.441899.3.579.2.462 Unknown [id number] 2.16.840.1.879054.3.579.2.462 Unknown [id number] 2.16.840.1.303145.3.579.2.462 Unknown [id number] 2.16.840.1.701126.3.579.2.462 Unknown [id number] 2.16.840.1.532378.3.579.2.462 Unknown [id number] 2.16.840.1.743927.3.579.2.462 Unknown [id number] 2.16840.1.821488.3.579.2.462 Unknown [id number] 2.16.840.1.074634.3.579.2.462 Unknown [id number] 2.16.840.1.204252.3.579.2.462 Unknown [id number] 2.16.840.1.987091.3.579.2.462 Unknown [id number] 2.16.840.1.841708.3.579.2.462 Unknown [id number] 2.16840.1.038052.3.579.2.462 Unknown [id number] 2.16.840.1.877104.3.579.2.462 Unknown [id number] 2.16.840.1.741458.3.579.2.462 Unknown [id number] 2.16.840.1.118746.3.579.2.462 Unknown [id number] 2.16.840.1.182368.3.579.2.462 Unknown [id number] 2.16.840.1.027878.3.579.2.462 Unknown [id number] 2.16.840.1.216178.3.579.2.462 Unknown [id number] 2.16.840.1.593512.3.579.2.462 Unknown [id number] 2.16.840.1.263017.3.579.2.462 Unknown [id number] 2.16.840.1.934072.3.579.2.462 Unknown [id number] 2.16.840.1.526301.3.579.2.462 Unknown [id number] 2.840.1.792673.3.579.2.462 Unknown [id number] 2.840.1.805679.3.579.2.462 Unknown [id number] 2.840.1.861027.3.579.2.462 Unknown [id number] 2.840.1.549492.3.579.2.462 Unknown [id number] 2.840.1.814527.3.579.2.462 Unknown [id number] 2.840.1.720039.3.579.2.462 Unknown [id number] 2.840.1.851132.3.579.2.462 Unknown [id number] 2.840.1.062833.3.579.2.462 Unknown [id number] 2.840.1.809548.3.579.2.462 Unknown [id number] 2.840.1.016115.3.579.2.462 Unknown [id number] 2..840.1.248968.3.579.2.462 Unknown [id number] 2.840.1.513232.3.579.2.462 Unknown [id number] 2.16840.1.701028.3.579.2.462 Unknown [id number] 2.16.840.1.065088.3.579.2.462 Unknown [id number] 2.16.840.1.024282.3.579.2.462 Unknown [id number] 2.16.840.1.404084.3.579.2.462 Unknown [id number] 2.16.840.1.146583.3.579.2.462 Unknown [id number] 2.16.840.1.125563.3.579.2.462 Unknown [id number] 2.16.840.1.603686.3.579.2.462 Unknown [id number] 2.16.840.1.229901.3.579.2.462 Unknown [id number] 2.16.840.1.906566.3.579.2.462 Unknown [id number] 2.16.840.1.132204.3.579.2.462 Unknown [id number] 2.16.840.1.548080.3.579.2.462 Unknown [id number] 2.16.840.1.104185.3.579.2.462 Unknown [id number] 2.16.840.1.214204.3.579.2.462 Unknown [id number] 2.16.840.1.471939.3.579.2.462 Unknown [id number] 2.16.840.1.470403.3.579.2.462 Unknown [id number] 2.16.840.1.235607.3.579.2.462 Unknown [id number] 2.16.840.1.926721.3.579.2.462 Unknown [id number] 2.16.840.1.479176.3.579.2.462 Unknown [id number] 2.16.840.1.512433.3.579.2.462 Unknown [id number] 2.16.840.1.414399.3.579.2.462 Unknown [id number] 2.16.840.1.895039.3.579.2.462 Unknown [id number] 2.16.840.1.555719.3.579.2.462 Unknown [id number] 2.16.840.1.959732.3.579.2.462 Unknown [id number] 2.16.840.1.523015.3.579.2.462 Unknown [id number] 2.16.840.1.632677.3.579.2.462 Unknown [id number] 2.16.840.1.416662.3.579.2.462 Unknown [id number] 2.16.840.1.888191.3.579.2.462 Unknown [id number] 2.16.840.1.965253.3.579.2.462 Unknown [id number] 2.16.840.1.772345.3.579.2.462 Unknown [id number] 2.16.840.1.390335.3.579.2.462 Unknown [id number] 2.16.840.1.258104.3.579.2.462 Unknown [id number] 2.16.840.1.265183.3.579.2.462 Unknown [id number] 2.16.840.1.709766.3.579.2.462 Unknown [id number] 2.16.840.1.912727.3.579.2.462 Unknown [id number] 2.16840.1.716477.3.579.2.462 Unknown [id number] 2.16840.1.095376.3.579.2.462 Social History Date Type Detail Facility Start: 02-17-2022 End: 02-21-2024 Tobacco smoking status SCIS Unknown if ever smoked [facility] Start: 01-18-2020 Occasional [facility] Start: 01-18-2020 None [facility] Start: 01-29-2020 Alone [facility] Start: 02-09-2021 Cigarettes [facility] Start: 1955 Sex Assigned At Female [facility] Start: 12-08-2016 End: 08-05-2025 Tobacco smoking status NHIS Smokes tobacco daily [facility] History of tobacco use Cigarette Smoker [facility] Start: 04-04-2023 End: 07-23-2025 Alcohol intake Ex-drinker (finding) [facility] Start: 04-04-2023 End: 07-23-2025 History of Social function [facility] Start: 04-04-2023 End: 07-23-2025 Tobacco use panel [facility] Start: 1955 Sex Assigned At Not on file [facility] Start: 12-08-2016 End: 03-04-2025 Tobacco use and exposure Smokeless tobacco non-user [facility] Start: 11-25-2020 Alcoholic beverage intake Not Asked [facility] National Score (1-100), lower number is lower risk Not on file [facility] Start: 10-26-2020 End: 10-05-2022 Exposure to SARS-CoV-2 (event) Not sure [facility] Start: 06-19-2022 Sex Female (finding) [facility] Start: 04-02-2025 End: 09-19-2025 Tobacco smoking status NHIS Current Light tobacco smoker [facility] NEGATED: Highlighted row [facility] NEGATED: Highlighted row [facility] Medical Equipment Procedure Code Equipment Code Equipment Origin al Text Equipment Identifier Dates GDC aneurysm coil FDA Start: 02-03-2014 GDC aneurysm coil FDA Start: 02-03-2014 Protege GFS stent FDA Start: 08-25-2015 ([id number]) [id number] FDA Start: 01-18-2022 GDC aneurysm coil FDA [...] /State Functional Status Date Assessment Result Facility 08-12-2025 Functional status Ambulates [facility] Work Phone: 06-09-2025 Functional status Ambulates [facility] Work Phone: 06-08-2025 Functional status Fair [facility] Work Phone: 04-22-2025 Functional status Ambulates [facility] Work Phone: 01-13-2025 Functional status Standby Assist [facility] Work Phone: 01-13-2025 Functional status Ambulates;Bathroom Priv ilege [facility] Work Phone: 12-11-2024 Functional status Bathroom Privilege [facility] Work Phone: 02-25-2024 Functional status Ambulates [facility] Work Phone: 12-07-2023 Functional status Ambulates;Chair [facility] Work Phone: 11-21-2023 Functional status Ambulates [facility] Work Phone: 11-16-2023 Functional status Ambulates [facility] Work Phone: 11-09-2022 Functional Status Ambulating in room [facility] 11-09-2022 Functional Status [facility] 11-09-2022 Functional Status Maintained [facility] Mental Status Date Assessment Result Facility 08-12-2025 Cognitive function Voice/Name [facility] Work Phone: 08-05-2025 Cognitive function Awake [facility] Work Phone: 07-31-2025 Cognitive function Awake [facility] Work Phone: 07-22-2025 Cognitive function Awake;Alert;A ppropriate;Follo ws Commands [facility] Work Phone: 07-05-2025 Cognitive function Awake;Alert;A ppropriate;Follo ws Commands [facility] Work Phone: 06-09-2025 Cognitive function Voice/Name [facility] Work Phone: 06-03-2025 Cognitive function Awake;Alert;A ppropriate;Follo ws Commands [facility] Work Phone: 05-19-2025 Cognitive function Awake;Alert;A ppropriate;Follo ws Commands [facility] Work Phone: 04-22-2025 Cognitive function Voice/Name;Touch/Shaki ng [facility] Work Phone: 04-18-2025 Cognitive function Level Of Cons ciousness Awake;Alert;Appropriate;Follo ws Commands [facility] Work Phone: 04-02-2025 Cognitive function Awake;Appropr iate;Follows Commands;Drowsy [facility] Work Phone: 01-13-2025 Cognitive function Voice/Name [facility] Work Phone: 12-11-2024 Cognitive function Voice/Name [facility] Work Phone: 02-25-2024 Cognitive function Voice/Name [facility] Work Phone: 02-19-2024 Cognitive function Awake;Alert;A ppropriate;Follo [facility] Work Phone: 12-07-2023 Cognitive function Voice/Name [facility] Work Phone: 12-02-2023 Cognitive function Awake;Drowsy [facility] Work Phone: 11-27-2023 Cognitive function Voice/Name [facility] Work Phone: 11-21-2023 Cognitive function Voice/Name [facility] Work Phone: 11-18-2023 Cognitive function Level Of Cons ciousness Awake;Alert;Appropriate;Follo ws Commands [facility] Work Phone: 11-16-2023 Cognitive function Voice/Name [facility] Work Phone: 11-15-2023 Cognitive function Level Of Cons ciousness Awake;Alert;Appropriate;Roroo Commands [facility] Work Phone: 10-05-2023 Cognitive function Awake;Alert;A ppropriate;[facility] Work Phone: 04-08-2023 Cognitive function Level Of Cons ciousness Awake;Alert;Appropriate [facility] Work Phone: 03-16-2023 Cognitive function Level Of Cons ciousness Awake;Alert;Appropriate;Follo Commands [facility] Work Phone: 11-09-2022 Mental Status Orientation Oriented x 4 [facility] 11-09-2022 Mental Status [facility] 11-09-2022 Mental Status [facility] 02-18-2022 Cognitive function Voice/Name [facility] Work Phone: Clinical Notes 11-25-2020 to 08-12-2025 Note Date & Type Note Facility 08-12-2025 Discharge summary Note Date/Time August 12, 2025 3:16pm [facility] Medical Records Department [address] [place] [address] Transfer to [facility] MR#: [id number] Acct: [id number] Name: ANGÉLICA YO Rep #:[id number] : 1955 70 From: Eva Mortensen DO PCP: Dr. Daron Benton MD Status:ADM IN Certification of patient admission REQUIRED AT TIME OF ADMISSION. I CERTIFY THAT [facility] SERVICES ARE REQUIRED TO BE GIVEN ON AN IN-PATIENT BASIS BECAUSE OF THE ABOVE NAMED PATIENT'S NEED FOR RETIREMENT CARE ON A CONTINUING BASIS FOR THE CONDITION(S) FOR WHICH HE/SHE WAS RECEIVING IN-PATIENT HOSPITAL SERVICES PRIOR TO HIS/HER TRANSFER TO THE [facility]. 08/12/25 1516<Electronically signed by Eva Mortensen DO> Diet Diet Order/Speech Therapy: INPATIENT Hospital Diet / Speech Therapy Order(s) 08/09/25 13:04 Diet: Regular - No Added Salt Food consistency:: Regular Liquid Consistency:: Regular/Thin Type of Dietary Supplement:: Magic Cup Dessert Diet Comments: magic cup with lunch and dinner tray Routine Orders/Code Status Suppository Type: Dulcolax 10mg Routine Lab Work: CBC (1 week) and BMP (1 week) Code Status: Full Code DC O2, CPAP, BIPAP needs Home O2 Discharge instructions: No Wound(s) Top of Head: Wound Type: Laceration Forehead: Wound Type: Hematoma corner of right eye: Wound Type: Laceration Suggestions for Active Care Change Position every (hours): 2 Hours to sit in a chair: 3 Times a day to sit in chair: 2 Therapies Weight Bearing: Full weight bearing Physical Therapy: Eval and Treat Occupational Therapy: Eval and Treat Problem/Diagnosis (1) CHRISTOPHER (acute kidney injury): Status: Acute Code(s): N17.9 - Acute kidney failure, unspecified (2) Head injury: Status: Acute Code(s): S09.90XA - Unspecified injury of head, initial encounter (3) Dehydration: Status: Acute Code(s): E86.0 - Dehydration (4) Nausea and vomiting: Status: Acute Code(s): R11.2 - Nausea with vomiting, unspecified (5) Fall: Status: Acute Code(s): W19.XXXA - Unspecified fall, initial encounter (6) Closed head injury: Status: Acute Code(s): S09.90XA - Unspecified injury of head, initial encounter Allergies/Procedures Done in Hospital Allergies colestipol (From Colestid) Allergy (Mild, Verified 08/08/25 21:58) unknown pregabalin (From Lyrica) Allergy (Mild, Verified 08/08/25 21:58) Hives amitriptyline Allergy (Verified 08/08/25 21:58) Rash temazepam (From Restoril) Adverse Reaction (Mild, Verified 08/08/25 21:58) Nausea/Vom/Diarrhea Antihistamines - Alkylamine Adverse Reaction (Verified 08/08/25 21:58) Nausea/Vom/Diarrhea Antihistamines - Ethanolamine Adverse Reaction (Verified 08/08/25 21:58) Nausea/Vom/Diarrhea Antihistamines - Ethylenediamine Adverse Reaction (Verified 08/08/25 21:58) Nausea/Vom/Diarrhea Antihistamines - Piperazine Adverse Reaction (Verified 09/20/25 21:58) Nausea/Vom/Diarrhea Antihistamines - Piperidine Adverse Reaction (Verified 08/08/25 21:58) Nausea/Vom/Diarrhea aspirin Adverse Reaction (Verified 08/08/25 21:58) I'M ON BLOOD THINNERS codeine Adverse Reaction (Verified 08/08/25 21:58) Nausea Corticosteroids (Glucocorticoids) Adverse Reaction (Verified 08/08/25 21:58) Upset Stomach morphine Adverse Reaction (Verified 08/08/25 21:58) Nausea Qhycmhl-YQM-GmR Reductase Inhibitor (Epkxyft-Kcy-Kkq Reductase Inhibitor) Adverse Reaction (Verified 08/08/25 21:58) Nausea Procedures: EKG and - (Chest x-ray) Type of Care/Length of Stay Estimated LOS: Convalescent Care Less Than 30 days Type of Care Needed: Skilled Rehab Potential: Good Prognosis: Fair Additional Orders/Day of Discharge Day of Discharge: 08/12/25 Dietary and Speech Recommendations Dietitian Recommendations/Changes: Will liberalize diet to regular/no added salt. Will d/c 120mL ensure plus HP 3 times per day w/ medpass; pt refusing. Will try magic cup w/ lunch and dinner for tolerance. Discharge Plan Admission Admit Date/Time: 08/08/25 23:34 Primary Reason for Your Visit: Fall/confusion Attending Provider: Eva Mortensen Primary Care Provider: Daron Benton Consulting Providers: Sommer Resendiz; Neha Watson Discharge Orders/Prescriptions Prescriptions: New amlodipine 10 mg Tablet 10 mg PO DAILY Qty: 0 0RF cyclobenzaprine 5 mg Tablet 5 mg PO TID PRN (Reason: Muscle Spasm) Qty: 0 0RF guaifenesin [Mucus Relief ER] 1,200 mg Tablet Extended Release 12hr 1,200 mg PO BID Qty: 0 0RF Daily Fiber (psyllium-aspart) 3 gram Powder In Packet 1 packet PO DAILY PRN PRN (Reason: Constipation) Qty: 0 0RF Continued levothyroxine 50 mcg tablet 50 mcg PO DAILY Patient Comments: take 1 tablet by mouth once daily famotidine 40 mg tablet 40 mg PO QDAY PRN (Reason: indigestion) rosuvastatin 20 mg tablet 20 mg PO QHS Qty: 90 3RF dextromethorphan-guaifenesin [Mucinex DM] 60-1,200 mg tablet extended release 12 hr 1 tab PO Q12H PRN (Reason: cough/congest) cholecalciferol (vitamin D3) 125 mcg (5,000 unit) capsule 125 mcg PO DAILY polysaccharide iron complex [Ferrex 150] 150 mg [...] kcal/mL Liquid 120 ml PO TIDCM Qty: 82179 0RF baclofen 10 mg Tablet 10 mg PO TID Qty: 0 0RF quetiapine 25 mg Tablet 50 mg PO QHS Qty: 0 0RF paroxetine HCl 10 mg Tablet 10 mg PO DAILY Qty: 0 0RF potassium chloride 20 mEq Tablet,Er Particles/Crystals 20 meq PO BIDCM Qty: 0 0RF gabapentin 300 mg Capsule 300 mg PO TID Qty: 0 0RF pantoprazole [Protonix] 40 mg tablet,delayed release (DR/EC) 40 mg PO BIDCM Qty: 1 0RF OXYGEN - Supplemental ([facility] INFORMATIONAL USE ONLY) Patient Comments: 3L oxycodone 5 mg Tablet 10 mg PO Q6H PRN PRN (Reason: Pain Score 4-10) 1 Days Qty: 8 0RF carvedilol 3.125 mg tablet 3.125 mg PO BIDCM Qty: 180 3RF Eliquis 5 mg tablet 5 mg PO Q12H Qty: 180 3RF furosemide 40 mg tablet 40 mg PO QDAY Discontinued amlodipine 2.5 mg tablet 2.5 mg PO QDAY Referrals / Follow Up: Daron Benton MD [Primary Care Provider, Family Practice] Kristopher Main MD [Non-Staff, Neurology] - Within 1 Month Disposition Disposition (needs filled in before D/C Order can be placed): [facility] Facility 08/12/25 1516 <Electronically signed by Eva Mortensen DO> Cosigner Signature (if applicable): CC: Dr. Sommer Resendiz MD; Dr. Daron Benton MD; Dr. Neha Watson MD ~ [facility] Work Phone: 1(544) 791-676509-24-2025 Consult note Author Giles Farmer [facility] Note Date/Time August 12, 2025 10:50pm [facility] Medical Records Department [address] [place] [address] Counseling Note - Pharmacy 08/12/25 1431 MR#: [id number] Acct: [id number] Name: ANGÉLICA YO Rep #:[id number] : 1955 70 From: Giles strange PCP: Dr. Daron Benton MD Status:ADM IN Y Location: [place] [address] [facility] has performed discharge medication reconciliation for this patient. The patient's discharge medication list was reviewed for discrepancies and discrepancies were resolved. Medications at Discharge Home Medications levothyroxine 50 mcg tablet 50 mcg PO DAILY thyroid 08/11/21 dextromethorphan-guaifenesin ER 60 mg-1,200 mg tab,extend release,12hr (Mucinex DM) 1 tab PO Q12H PRN cough/congest 02/19/24 famotidine 40 mg tablet 40 mg PO QDAY PRN indigestion 11/24/24 cholecalciferol (vitamin D3) 125 mcg (5,000 unit) capsule 125 mcg PO DAILY supplement 04/18/25 docusate sodium 100 mg capsule (Colace) 100 mg PO BID stool softener 7 days #14 caps 04/18/25 polysaccharide iron complex 150 mg iron capsule (Ferrex) 150 mg PO DAILY 90 days#90 caps 04/22/25 capsaicin 0.1 % topical cream 1 applic topical TID #60 grams 05/19/25 food supplemt, lactose-reduced 0.08 gram-1.5 kcal/mL oral liquid (Ensure Plus High Protein) 120 ml PO TIDCM #21,330 mL 06/07/25 baclofen 10 mg tablet 10 mg PO TID #0 tabs 06/09/25 gabapentin 300 mg capsule 300 mg PO TID #0 caps 06/09/25 pantoprazole 40 mg tablet,delayed release (Protonix) 40 mg PO BIDCM #1 TAB 06/09/25 paroxetine HCl 10 mg tablet 10 mg PO DAILY #0 tabs 06/09/25 potassium chloride 20 mEq tablet,extended release(part/cryst) 20 meq PO BIDCM #0tabs 06/09/25 quetiapine 25 mg tablet 50 mg (2 x 25 mg) PO QHS #0 tabs 06/09/25 carvedilol 3.125 mg tablet 3.125 mg PO BIDCM heart #180 tabs 07/22/25 apixaban 5 mg tablet (Eliquis) 5 mg PO Q12H anticoagulation #180 tabs 08/03/25 rosuvastatin 20 mg tablet 20 mg PO QHS hld #90 tabs 08/05/25 furosemide 40 mg tablet 40 mg PO QDAY diuretic 08/06/25 OXYGEN - Supplemental ([facility] INFORMATIONAL USE ONLY) hypoxia 08/10/25 amlodipine 10 mg tablet 10 mg PO DAILY #0 tabs 08/12/25 cyclobenzaprine 5 mg tablet 5 mg PO TID PRN Muscle Spasm #0 tabs 08/12/25 guaifenesin 1,200 mg tablet, extended release 12 hr (Mucus Relief ER) 1,200 mg PO BID #0 tabs 08/12/25 oxycodone 5 mg tablet 10 mg (2 x 5 mg) PO Q6H PRN PRN Pain Score 4-10 1 day #8 tabs 08/12/25 psyllium husk 3 gram oral powder packet (Daily Fiber (psyllium-aspartame)) 1 packet PO DAILY PRN PRN Constipation #0 ea 08/12/25 08/12/25 1431 <Electronically signed by Giles Santana> Date _ Giles Peterson Signature (if applicable): Date CC: ~ Signed [facility] Work Phone: 1(711) 455-567009-24-2025 Discharge summary Author Eva Mortensen [facility] Note Date/Time August 12, 2025 2:16pm [facility] Medical Records Department [address] [place] [address] Discharge Summary 08/12/25 1343 MR#: [id number] Acct: [id number] Name: ANGÉLICA YO Rep #:[id number] : 1955 70 From: Eva Mortensen DO PCP: Dr. Daron Benton MD Status:ADM IN Location: [place] [address] Providers Date of Admission: 08/08/25 Primary Care Physician: Dr. Daron Benton MD Reason For Visit: ENCEPHALOPATHY, FALL, CHRISTOPHER Diagnosis Discharge Diagnosis (1) CHRISTOPHER (acute kidney injury): Status: Acute Code(s): N17.9 - Acute kidney failure, unspecified (2) Head injury: Status: Acute Code(s): S09.90XA - Unspecified injury of head, initial encounter (3) Dehydration: Status: Acute Code(s): E86.0 - Dehydration (4) Nausea and vomiting: Status: Acute Code(s): R11.2 - Nausea with vomiting, unspecified (5) Fall: Status: Acute Code(s): W19.XXXA - Unspecified fall, initial encounter (6) Closed head injury: Status: Acute Code(s): S09.90XA - Unspecified injury of head, initial encounter Plan Closed head injury/scalp contusion - Patient with significant Lira sign - CT of the brain x 2 unremarkable - CT of the face and sinuses unremarkable - CT cervical spine unremarkable - Per discussion with patient her neurologist, Dr. Main is concerned that this may be related to an acute exacerbation of her MS - MRI with and without contrast the brain obtained and no acute findings consistent with MS CHRISTOPHER on CKD stage II secondary to dehydration - Improving - Baseline renal function appears to be between 1 and 1.2 - FeNa was obtained and was found to be 0.66 consistent with prerenal etiology - 1 more liter today as renal function is improved with serum creatinine of 1.32 - Renal ultrasound unremarkable Fall - As noted above neurology feels it is likely related to an exacerbation of MS - MRI with and without contrast of the brain was unremarkable for any acute findings consistent with an exacerbation of MS - PT/OT placement - Plan is for discharge likely tomorrow to group home facility Constipation - CT of the abdomen pelvis showed large fecal load in the colon -Patient did have bowel movement today - Continue home Colace twice daily - Add MiraLAX 17 g twice daily for now with holding for liquid stool - Continue to monitor stool output Nausea and vomiting - Resolved - The patient attributes mostly to nasal drainage/postnasal drip - For now we will start Mucinex 1200 p.o. twice daily - may also be related to significant constipation see still regimen as above Toxic/metabolic encephalopathy - Suspect related to closed head injury - Patient may have some mild postconcussive symptoms - TSH within normal limits - Clinically improved COPD with chronic hypoxic respiratory failure second alpha-1 antitrypsin deficiency - Patient wears 2.5 L at night and 3 L as needed during the day - Continue home budesonide - As needed albuterol - I-S Valvular heart disease - Patient with moderate mitral valve stenosis - Murmur noted on exam - EF of 65% with negative bubble study - Continue outpatient follow-up CAD/PAD/essential hypertension/hyperlipidemia/bilateral carotid artery stenosis/TIA - Patient with previous PCI for coronary arteries as well as peripheral iliac artery - History of carotid endarterectomy - Continue baby aspirin - Continue apixaban - Continue Coreg - Increase amlodipine to 10 mg daily - Continue statin PAF - Currently in sinus rhythm - Continue beta-blockade - Continue apixaban Psoriatic arthritis - Patient not on any suppressive therapy - No signs of acute rash - Monitor MS - Follows with neurology - MRI is unremarkable for any acute findings - Recommend outpatient follow-up with primary neurologist Chronic normocytic anemia - Hemoglobin stable Chronic thrombocytopenia -Improved today - repeat lab in a.m. - Coags are normal so little DIC is improbable - May need outpatient follow-up at oncology if persistent Hypothyroidism - Continue home levothyroxine - History of partial thyroidectomy Allergic rhinitis - Suspect contributing to her postnasal drip - Continue home nasal spray - Mucinex as noted above GERD - Continue home PPI History of brain aneurysm - Previous coiling - No acute problems Tobacco abuse - Patient continues to smoke - Nicotine replacement available if needed - Encourage cessation DVT prophylaxis - Continue Eliquis CODE STATUS - Full code Medications at Discharge Home Medications levothyroxine 50 mcg tablet 50 mcg PO DAILY thyroid 08/11/21 dextromethorphan-guaifenesin ER 60 mg-1,200 mg tab,extend release,12hr (Mucinex DM) 1 tab PO Q12H PRN cough/congest 02/19/24 famotidine 40 mg tablet 40 mg PO QDAY PRN indigestion 11/24/24 cholecalciferol (vitamin D3) 125 mcg (5,000 unit) capsule 125 mcg PO DAILY supplement 04/18/25 docusate sodium 100 mg capsule (Colace) 100 mg PO BID stool softener 7 days #14 caps 04/18/25 polysaccharide iron complex 150 mg iron capsule (Ferrex) 150 mg PO DAILY 90 days#90 caps 04/22/25 capsaicin 0.1 % topical cream 1 applic topical TID #60 grams 05/19/25 food supplemt, lactose-reduced 0.08 gram-1.5 kcal/mL oral liquid (Ensure Plus High Protein) 120 ml PO TIDCM #21,330 mL 06/07/25 baclofen 10 mg tablet 10 mg PO TID #0 tabs 06/09/25 gabapentin 300 mg capsule 300 mg PO TID #0 caps 06/09/25 pantoprazole 40 mg tablet,delayed release (Protonix) 40 mg PO BIDCM #1 TAB 06/09/25 paroxetine HCl 10 mg tablet 10 mg PO DAILY #0 tabs 06/09/25 potassium chloride 20 mEq tablet,extended release(part/cryst) 20 meq PO BIDCM #0tabs 06/09/25 quetiapine 25 mg tablet 50 mg (2 x 25 mg) PO QHS #0 tabs 06/09/25 carvedilol 3.125 mg tablet 3.125 mg PO BIDCM heart #180 tabs 07/22/25 apixaban 5 mg tablet (Eliquis) 5 mg PO Q12H anticoagulation #180 tabs 08/03/25 rosuvastatin 20 mg tablet 20 mg PO QHS hld #90 tabs 08/05/25 furosemide 40 mg tablet 40 mg PO QDAY diuretic 08/06/25 OXYGEN - Supplemental ([facility] INFORMATIONAL USE ONLY) hypoxia 08/10/25 amlodipine 10 mg tablet 10 mg PO DAILY #0 tabs 08/12/25 cyclobenzaprine 5 mg tablet 5 mg PO TID PRN Muscle Spasm #0 tabs 08/12/25 guaifenesin 1,200 mg tablet, extended release 12 hr (Mucus Relief ER) 1,200 mg PO BID #0 tabs 08/12/25 oxycodone 5 mg tablet 10 mg (2 x 5 mg) PO Q6H PRN PRN Pain Score 4-10 1 day #8 tabs 08/12/25 psyllium husk 3 gram oral powder packet (Daily Fiber (psyllium-aspartame)) 1 packet PO DAILY PRN PRN Constipation #0 ea 08/12/25 Hospital Course Procedures EKG and - (CT of the brain x 2/cervical spine CT/chest x-ray/facial and sinus x-ray/pelvic x-ray/shoulder x-ray/CT of the abdomen pelvis/renal ultrasound/brain MRI) Summary of Care Provided Minutes Spent on Discharge: 40 Hospital Course: Mrs. Yo is a 70-year-old white female who presented to the emergency department at [facility] on 08/08/2025 after a fall and subsequent confusion at home. She has a history of multiple sclerosis at baseline and is otherwise quite medically complex. Fall was mechanical and she suffered head injury. Dried blood was noted on her scalp and she was confused occasionally and repeating herself. Vital signs on presentation showed temperature of 98.4, heart rate 66, blood pressure was 176/100, respiratory was 18 and pulse ox was 99% on room air. CBC showed mild chronic anemia and thrombocytopenia with platelet count of 122,000. Basic metabolic profile showednormal bicarb but she had a markedly elevated BUN at 80 and a serum creatinine of 3.9. Previous renal function was assessed here early in July and appeared to range between 1 and 1.2. During her stay she did have some chest pain and had a troponin of 23 with a delta of 20 and a 4-hour troponin of 20. EKG was unremarkable. Pain resolved with pain medication. On exam she was noted to have marked bilateral periorbital ecchymosis and edema. She appeared to be markedly dehydrated. Liver functions were unremarkable. Given her altered mentation and elevated serum creatinine she was admitted to the PCU. Electrolytes, despite her renal dysfunction were overwhelmingly unremarkable forthe most part. Fractional excretion of sodium was calculated and found to be consistent with prerenal azotemia. She was aggressively rehydrated which resulted in resolution of her renal failure. Serum creatinine at the time of discharge was 1.06. Per discussion with the patient her primary neurologist, Dr. Main, was concerned that her weakness and fall could possibly be related toa flare of her MS and once her serum creatinine was closer to normal we did obtain a contrasted MRI of her brain which was unremarkable for any acute findings. On top of this, extensive imaging was done prior to admission with noacute fractures identified. CT of the abdomen pelvis did show significant constipation and she was treated with an aggressive bowel regimen during her hospital course. Renal ultrasound was also performed given her significant CHRISTOPHER presentation and was unremarkable. Patient was seen by physical and Occupational Therapy during her hospital course and they strongly felt that she would benefit from ongoing rehab at discharge. Patient requested [facility] atdischarge and she was accepted. Pre-CERT was obtained from her insurance company on 08/11/2025 and she was deemed appropriate for discharge on 08/12/2025. No medication changes were made at the time of discharge other than the additionof as needed Flexeril to assist with her chronic back pain. Patient was discharged to [facility] in stable condition on 08/12/2025. Discharge diagnoses: Closed head injury/scalp contusion/postconcussive disorder CHRISTOPHER secondary with prerenal azotemia secondary to dehydration CKD stage II Chronic moderate malnutrition Generalized weakness/fall Constipation Nausea Vomiting Toxic/metabolic encephalopathy-resolved COPD Chronic hypoxic respiratory failure secondary to alpha-1 antitrypsin deficiency Valvular heart disease CAD PAD Essential hypertension Hyperlipidemia Bilateral carotid artery stenosis TIA PAF Psoriatic arthritis MS Chronic normocytic anemia Thrombocytopenia-resolving Hypothyroidism Allergic rhinitis GERD History of brain aneurysm Tobacco abuse Physical Exam Const alert, oriented x3, no apparent distress, average body habitus, no limitations and well nourished; Negative for healthy appearing Constitutional Narrative: Chronically ill-appearing, older, white female, sitting up in bed eating breakfast and watching television, appears comfortable, nontoxic General Appearance: cooperative, comfortable, well kempt and well developed Exam Limitations: no limitations Nutritional Appearance: underweight HEENT normocephalic and moist oral mucous membranes; Negative for head/scalp atraumatic or hearing grossly normal bilaterally HEENT Narrative: Mild hearing loss, Mallampati 2, no thrush, significant periorbital ecchymosis with edema right greater than left Eyes EOMs intact bilaterally and conjunctivae normal Eyes Narrative: No scleral icterus Neck supple Neck Narrative: Trachea midline Resp normal respiratory effort, normal air movement, no retractions, no use of accessory muscles and clear to auscultation bilaterally Resp Narrative: Diminished but clear Auscultation: Negative for rales, rhonchi or wheezes Cardio regular rate, regular rhythm, S1 normal heart sound, S2 normal heart sound, no murmurs, no rub, no gallops and no clicks GI normal to inspection, nondistended, normoactive bowel sounds, soft to palpation and non-tender Extremity no clubbing, cyanosis or edema Extremity Narrative: 2+ pedal pulses, 2+ radial pulses Skin no jaundice, no petechiae and no mottling Skin Narrative: Ecchymosis as noted above General Skin Exam: no breakdown Neuro moves all extremities and no focal motor deficits Neuro Narrative: Generalized weakness Speech: speech normal Psych affect normal Psych Narrative: Extremely pleasant, eye contact is good and patient interacts appropriately Medical Records Data Medical Nutrition Assessment Dietitian: Malnutrition Criteria Met Start: 08/09/25 13:03 Freq: Status: Active Protocol: Document 08/09/25 13:04 RMA (Rec: 08/09/25 13:04 RMA [id number]) Nutrition Malnutrition Evidence of Yes Malnutrition Exists Malnutrition ( Chronic moderate): Evidenced By Suboptimal Energy Intake (Moderate),Weight Loss ( Moderate),Physical Changes (Moderate) Clinical Problem Chronic Disease or Condition Related Malnutrition Etiology moderate protein-calorie malnutrition in the context of chronic disease and debility related to inadequate oral/energy intake Signs/Symptoms as evidenced by BMI 17.5, ~ 4-5% unintentional weight loss x past 2-3 months, moderate muscle wasting andfat depletion in the clavicle, face, arms and legs as well as PO meeting less than 75% estimated nutrition needs Status Active Problem Recommendation Dietitian Will liberalize diet to regular/no added salt. Recommendations/ Will continue 120mL ensure plus HP 3 times per day w/ Changes medpass. Will add additional ONS as needed if weight/oral intake decline. Weight / BMI Weight Weight: 50 kg Body Mass Index (BMI) 18.3 ABG / Lab / Microbiology Data 08/11/25 04:51 08/12/25 07:28 Laboratory: Laboratory Results - last 24 hr 08/12/25 05:26: Troponin T High Sens 23 H D 08/12/25 07:28: Sodium 137, Potassium 4.3, Chloride 104, Carbon Dioxide 21.1, Anion Gap 12, BUN 23 H, Creatinine 1.06, Estim Creat Clear Calc 38.42 L, Est GFR(MDRD) Non-Af 56 L, BUN/Creatinine Ratio 21.3 H, Glucose 107 H, Calcium 9.6, Troponin T Hi Sens 2 Hr 20 H 08/12/25 09:28: Troponin T Hi Sens 4Hr 20 H Microbiology: Microbiology 08/08/25 23:00 Urine, Catheterized Urine Culture - Final Culture exhibits no growth. D/C Instructions Discharge Activity: Return to Normal Activity DC O2, CPAP, BIPAP Needs Home O2 Discharge instructions: No Meaningful Use Info Meaningful Use Meaningful Use Diagnoses (Choose all that apply): None applicable Discharge Plan Admission Admit Date/Time: 08/08/25 23:34 Primary Reason for Your Visit: Fall/confusion Attending Provider: Eva Mortensen Primary Care Provider: Daron Benton Consulting Providers: Sommer Resendiz; Neha Watson Discharge Orders/Prescriptions Prescriptions: New amlodipine 10 mg Tablet 10 mg PO DAILY Qty: 0 0RF cyclobenzaprine 5 mg Tablet 5 mg PO TID PRN (Reason: Muscle Spasm) Qty: 0 0RF guaifenesin [Mucus Relief ER] 1,200 mg Tablet Extended Release 12hr 1,200 mg PO BID Qty: 0 0RF Daily Fiber (psyllium-aspart) 3 gram Powder In Packet 1 packet PO DAILY PRN PRN (Reason: Constipation) Qty: 0 0RF Continued levothyroxine 50 mcg tablet 50 mcg PO DAILY Patient Comments: take 1 tablet by mouth once daily famotidine 40 mg tablet 40 mg PO QDAY PRN (Reason: indigestion) rosuvastatin 20 mg tablet 20 mg PO QHS Qty: 90 3RF dextromethorphan-guaifenesin [Mucinex DM] 60-1,200 mg tablet extended release 12 hr 1 tab PO Q12H PRN (Reason: cough/congest) cholecalciferol (vitamin D3) 125 mcg (5,000 unit) capsule 125 mcg PO DAILY polysaccharide iron complex [Ferrex 150] 150 mg [...] kcal/mL Liquid 120 ml PO TIDCM Qty: 87958 0RF baclofen 10 mg Tablet 10 mg PO TID Qty: 0 0RF quetiapine 25 mg Tablet 50 mg PO QHS Qty: 0 0RF paroxetine HCl 10 mg Tablet 10 mg PO DAILY Qty: 0 0RF potassium chloride 20 mEq Tablet,Er Particles/Crystals 20 meq PO BIDCM Qty: 0 0RF gabapentin 300 mg Capsule 300 mg PO TID Qty: 0 0RF pantoprazole [Protonix] 40 mg tablet,delayed release (DR/EC) 40 mg PO BIDCM Qty: 1 0RF OXYGEN - Supplemental ([facility] INFORMATIONAL USE ONLY) Patient Comments: 3L oxycodone 5 mg Tablet 10 mg PO Q6H PRN PRN (Reason: Pain Score 4-10) 1 Days Qty: 8 0RF carvedilol 3.125 mg tablet 3.125 mg PO BIDCM Qty: 180 3RF Eliquis 5 mg tablet 5 mg PO Q12H Qty: 180 3RF furosemide 40 mg tablet 40 mg PO QDAY Discontinued amlodipine 2.5 mg tablet 2.5 mg PO QDAY Referrals / Follow Up: Daron Benton MD [Primary Care Provider, Family Practice] Kristopher Main MD [Non-Staff, Neurology] - Within 1 Month Disposition Disposition (needs filled in before D/C Order can be placed): [facility] Facility Charges/Coding Visit Charges Inpatient E&M: 59177 SNF Disch >30 Min 08/12/25 1416 <Electronically signed by Eva Mortensen DO> Cosigner Signature (if applicable): CC: Dr. Daron Benton MD; Dr. Eva Mortensen DO~ Signed [facility] Work Phone: [phone]) 359-423209-24-2025 [facility]09-23-2025 Progress note Author Eva Mortensen [facility] Note Date/Time August 11, 2025 6:35pm [facility] Medical Records Department [address] [place] [address] Progress Note - Hospitalist 08/11/25 181 MR#: [id number] Acct: [id number] Name: ANGÉLICA YO Rep #:[id number] : 1955 70 From: Eva Mortensen DO PCP: Dr. Daron Benton MD Status:ADM IN Location: [place] [id number] Reason for Visit Chief Complaint: Fall, confusion. Subjective Subjective No issues overnight. Patient states her MRI was performed early this morning. At this time my evaluation we are awaiting results. Asks for some muscle relaxant for her chronic back pain. She does follow as an outpatient with pain management. She does have multiple drug allergies with some limits oral medications. I did discuss with her it did not really want to increase her opiate use. Objective Data Objective Data Vital Signs: Vital Signs Temp Pulse Resp BP Pulse Ox O2 Del Method O2 Flow Rate 97 F L 69 14 127/65 H 100 Room Air 2 08/11/25 14:01 08/11/25 14:01 08/11/25 14:01 08/11/25 14:01 08/11/25 14:01 08/11/25 14:01 08/11/25 09:27 Oxygen Flow Rate (L/min) 2 Oxygen Delivery Method Room Air Weight: 52 kg Body Mass Index (BMI) 19.1 Intake & Output: Intake and Output for Last 24 Hours 08/09/25 08/10/25 08/11/25 23:59 23:59 23:59 Intake Total 1675 / 2035 2260 / 2260 2425 / 2425 Output Total 2000 / 2400 1750 / 2400 1400 / 1400 Balance -325 / -365 510 / -140 1025 / 1025 Medical Nutrition Assessment Dietitian: Malnutrition Criteria Met Start: 08/09/25 13:03 Freq: Status: Active Protocol: Document 08/09/25 13:04 RMA (Rec: 08/09/25 13:04 RMA [id number]) Nutrition Malnutrition Evidence of Yes Malnutrition Exists Malnutrition ( Chronic moderate): Evidenced By Suboptimal Energy Intake (Moderate),Weight Loss ( Moderate),Physical Changes (Moderate) Clinical Problem Chronic Disease or Condition Related Malnutrition Etiology moderate protein-calorie malnutrition in the context of chronic disease and debility related to inadequate oral/energy intake Signs/Symptoms as evidenced by BMI 17.5, ~ 4-5% unintentional weight loss x past 2-3 months, moderate muscle wasting andfat depletion in the clavicle, face, arms and legs as well as PO meeting less than 75% estimated nutrition needs Status Active Problem Recommendation Dietitian Will liberalize diet to regular/no added salt. Recommendations/ Will continue 120mL ensure plus HP 3 times per day w/ Changes medpass. Will add additional ONS as needed if weight/oral intake decline. Lab / Micro Data 08/11/25 04:51 08/11/25 04:51 Labs: Laboratory Results - last 24 hr 08/11/25 04:51: WBC 6.2, RBC 3.94 L, Hgb 11.0 L, Hct 34.4 L, MCV 87.3, MCH 27.9,MCHC 32.0, RDW Std Deviation 55.8 H, RDW Coeff of David 17.5 H, Plt Count 120 L, MPV 9.9, Immature Gran % (Auto) 0.500, Neut % (Auto) 72.7 H, Lymph % (Auto) 11.9L, [place] % (Auto) 9.5, Eos % (Auto) 4.8, Baso % (Auto) 0.6, Absolute Neuts (auto)4.5, Absolute Lymphs (auto) 0.74 L, Nucleated RBC % 0, Sodium 139, Potassium 4.3, Chloride 103, Carbon Dioxide 24.1, Anion Gap 12, BUN 33 H, Creatinine 1.32 H, Estim Creat Clear Calc 32.09 L, Est GFR (MDRD) Non-Af 43 L, BUN/Creatinine Ratio 25.1 H, Glucose 109 H, Calcium 9.7, Phosphorus 3.6, Magnesium 2.1, Total Bilirubin 0.41, AST 20, ALT 16, Alkaline Phosphatase 95, Total Protein 6.3, Albumin 3.9, Globulin 2.4, Albumin/Globulin Ratio 1.6 Micro: Microbiology 08/08/25 23:00 Urine, Catheterized Urine Culture - Final Culture exhibits no growth. Radiography Diagnostic Testing: Radiology Impression Brain MRI 08/11/25 08:33 IMPRESSION: No acute brain abnormalities. No abnormal enhancement. No change compared to MRI 05/20/2025. Chronic changes as detailed. Reading Location: [facility] Physical Exam Const alert, oriented x3, no apparent distress, average body habitus and well nourished Constitutional Narrative: Older, white female, sitting up in bed, appears somewhat chronically debilitatedbut currently comfortable, does not look toxic, nursing at bedside General Appearance: cooperative HEENT normocephalic, moist oral mucous membranes and oropharynx normal HEENT Narrative: Bilateral periorbital ecchymosis and edema right greater than left, does have dried blood in her scalp Eyes EOMs intact bilaterally and conjunctivae normal Eyes Narrative: No scleral icterus Neck supple Neck Narrative: Trachea midline Resp normal respiratory effort, normal air movement, no retractions, no use of accessory muscles and clear to auscultation bilaterally Auscultation: Negative for rales, rhonchi or wheezes Cardio regular rate, regular rhythm, S1 normal heart sound, S2 normal heart sound, no murmurs, no rub, no gallops and no clicks GI normal to inspection, nondistended, normoactive bowel sounds, soft to palpation and non-tender Extremity no clubbing, cyanosis or edema Extremity Narrative: 2+ pedal pulses, 2+ radial pulses Neuro moves all extremities and no focal motor deficits Neuro Narrative: Patient with generalized weakness however difficult to tell what is acute or chronic. Speech: speech normal Motor Exam: general weakness Psych affect normal Psych Narrative: Extremely pleasant, eye contact is good and patient interacts appropriately Assessment & Plan Assessment/Plan (1) CHRISTOPHER (acute kidney injury): (2) Head injury: (3) Dehydration: (4) Nausea and vomiting: (5) Fall: (6) Closed head injury: PLAN: Plan Closed head injury/scalp contusion - Patient with significant Lira sign - CT of the brain x 2 unremarkable - CT of the face and sinuses unremarkable - CT cervical spine unremarkable - Per discussion with patient her neurologist, Dr. Main is concerned that this may be related to an acute exacerbation of her MS - MRI with and without contrast the brain obtained and no acute findings consistent with MS CHRISTOPHER on CKD stage II secondary to dehydration - Improving - Baseline renal function appears to be between 1 and 1.2 - FeNa was obtained and was found to be 0.66 consistent with prerenal etiology - 1 more liter today as renal function is improved with serum creatinine of 1.32 - Renal ultrasound unremarkable Fall - As noted above neurology feels it is likely related to an exacerbation of MS - MRI with and without contrast of the brain was unremarkable for any acute findings consistent with an exacerbation of MS - PT/OT placement - Plan is for discharge likely tomorrow to group home facility Constipation - CT of the abdomen pelvis showed large fecal load in the colon -Patient did have bowel movement today - Continue home Colace twice daily - Add MiraLAX 17 g twice daily for now with holding for liquid stool - Continue to monitor stool output Nausea and vomiting - Resolved - The patient attributes mostly to nasal drainage/postnasal drip - For now we will start Mucinex 1200 p.o. twice daily - may also be related to significant constipation see still regimen as above Toxic/metabolic encephalopathy - Suspect related to closed head injury - Patient may have some mild postconcussive symptoms - TSH within normal limits - Clinically improved COPD with chronic hypoxic respiratory failure second alpha-1 antitrypsin deficiency - Patient wears 2.5 L at night and 3 L as needed during the day - Continue home budesonide - As needed albuterol - I-S Valvular heart disease - Patient with moderate mitral valve stenosis - Murmur noted on exam - EF of 65% with negative bubble study - Continue outpatient follow-up CAD/PAD/essential hypertension/hyperlipidemia/bilateral carotid artery stenosis/TIA - Patient with previous PCI for coronary arteries as well as peripheral iliac artery - History of carotid endarterectomy - Continue baby aspirin - Continue apixaban - Continue Coreg - Increase amlodipine to 10 mg daily - Continue statin PAF - Currently in sinus rhythm - Continue beta-blockade - Continue apixaban Psoriatic arthritis - Patient not on any suppressive therapy - No signs of acute rash - Monitor MS - Follows with neurology - MRI is unremarkable for any acute findings - Recommend outpatient follow-up with primary neurologist Chronic normocytic anemia - Hemoglobin stable Chronic thrombocytopenia -Improved today - repeat lab in a.m. - Coags are normal so little DIC is improbable - May need outpatient follow-up at oncology if persistent Hypothyroidism - Continue home levothyroxine - History of partial thyroidectomy Allergic rhinitis - Suspect contributing to her postnasal drip - Continue home nasal spray - Mucinex as noted above GERD - Continue home PPI History of brain aneurysm - Previous coiling - No acute problems Tobacco abuse - Patient continues to smoke - Nicotine replacement available if needed - Encourage cessation DVT prophylaxis - Continue Eliquis CODE STATUS - Full code Charges/Coding Visit Charges Inpatient E&M: 48549 Subs Hosp L2 08/11/254 <Electronically signed by Eva Mortensen DO> Cosigner Signature (if applicable): CC: ~ Signed [facility] Work Phone: 1(505) 920-179309-22-2025 Progress note Author Eva Mortensen [facility] Note Date/Time August 10, 2025 4:07pm [facility] Medical Records Department [facility] [address] Progress Note - Hospitalist 08/10/25828 MR#: [id number] Acct: [id number] Name: ANGÉLICA YO Rep #:[id number] : 1955 70 From: Eva Mortensen DO PCP: Dr. Daron Benton MD Status:ADM IN Location: [place] [address] Reason for Visit Chief Complaint: Fall, confusion. Subjective Subjective Patient states that she did discuss her care with her neurologist Dr. Main and he is concerned that her fall and subsequent hospitalization were related to a flare of her MS. I explained that currently we are unable to do an MRI as she is not a candidate for contrast at this time due to her acute renal injury however I do suspect since she is improving quite rapidly with IV fluids and appears to be prerenal that we will be able to do 1 tomorrow and then go from there. Patient voiced understanding. She is having some vomiting that she feels is related to drainage. We will go ahead and add Mucinex. No other issues at this time. Objective Data Objective Data Vital Signs: Vital Signs Temp Pulse Resp BP Pulse Ox O2 Del Method O2 Flow Rate 98.5 F 72 16 147/73 H 100 Nasal Cannula 3 08/10/25 03:33 08/10/25 03:33 08/10/25 03:33 08/10/25 03:33 08/10/25 03:33 08/10/25 08:04 08/10/25 08:04 Oxygen Flow Rate (L/min) 3 Oxygen Delivery Method Nasal Cannula Weight: 54.5 kg Body Mass Index (BMI) 20.0 Intake & Output: Intake and Output for Last 24 Hours 08/08/25 08/09/25 08/10/25 23:59 23:59 23:59 Intake Total 0 / 0 1675 / 2035 360 / 360 Output Total 2000 / 2400 1200 / 1200 Balance 0 / 0 -325 / -365 -840 / -840 Medical Nutrition Assessment Dietitian: Malnutrition Criteria Met Start: 08/09/25 13:03 Freq: Status: Active Protocol: Document 08/09/25 13:04 RMA (Rec: 08/09/25 13:04 RMA [id number]) Nutrition Malnutrition Evidence of Yes Malnutrition Exists Malnutrition ( Chronic moderate): Evidenced By Suboptimal Energy Intake (Moderate),Weight Loss ( Moderate),Physical Changes (Moderate) Clinical Problem Chronic Disease or Condition Related Malnutrition Etiology moderate protein-calorie malnutrition in the context of chronic disease and debility related to inadequate oral/energy intake Signs/Symptoms as evidenced by BMI 17.5, ~ 4-5% unintentional weight loss x past 2-3 months, moderate muscle wasting andfat depletion in the clavicle, face, arms and legs as well as PO meeting less than 75% estimated nutrition needs Status Active Problem Recommendation Dietitian Will liberalize diet to regular/no added salt. Recommendations/ Will continue 120mL ensure plus HP 3 times per day w/ Changes medpass. Will add additional ONS as needed if weight/oral intake decline. Lab / Micro Data 08/10/25 05:27 08/10/25 05:27 Labs: Laboratory Results - last 24 hr 08/10/25 05:27: WBC 8.1, RBC 3.80 L, Hgb 10.7 L, Hct 33.0 L, MCV 86.8, MCH 28.2,MCHC 32.4, RDW Std Deviation 57.1 H, RDW Coeff of David 18.0 H, Plt Count 100 L, MPV 10.2, Immature Gran % (Auto) 0.400, Neut % (Auto) 79.3 H, Lymph % (Auto) 8.2L, [place] % (Auto) 7.7, Eos % (Auto) 3.9, Baso % (Auto) 0.5, Absolute Neuts (auto)6.4, Absolute Lymphs (auto) 0.66 L, Nucleated RBC % 0, Sodium 139, Potassium 4.0, Chloride 104, Carbon Dioxide 23.0, Anion Gap 12, BUN 59 H, Creatinine 1.87 H, Estim Creat Clear Calc 23.74 L, Est GFR (MDRD) Non-Af 28 L, BUN/Creatinine Ratio 31.7 H, Glucose 100 H, Calcium 9.3 Radiography Diagnostic Testing: Radiology Impression Brain CT 08/09/25 08:00 IMPRESSION: No acute intracranial abnormalities. Reading Location: [id number] Abdomen/Pelvis CT 08/09/25 08:42 IMPRESSION: Perinephric fat stranding. No hydronephrosis or nephrolithiasis. Correlation with urinalysis is recommended. Large amount of fecal load in the colon. Reading Location: [facility] Physical Exam Const alert, oriented x3, no apparent distress, average body habitus and well nourished Constitutional Narrative: Older, white female, lying in bed, appears somewhat chronically debilitated but currently comfortable, does not look toxic, nursing at bedside HEENT moist oral mucous membranes HEENT Narrative: Bilateral Lira sign noted from head trauma with significant periorbital ecchymosis right greater than left and swelling periorbitally right greater thanleft but noted bilaterally Head and Scalp: normocephalic Eyes conjunctivae normal Eyes Narrative: No scleral icterus Neck supple Neck Narrative: Trachea midline Resp normal respiratory effort, no retractions, [...] no clubbing, cyanosis or edema Extremity Narrative: 2+ pedal pulses, 2+ radial pulses Neuro moves all extremities Neuro Narrative: Patient with generalized weakness however difficult to tell what is acute or chronic. Speech: speech normal Psych affect normal Psych Narrative: Extremely pleasant, eye contact is good and patient interacts appropriately Assessment & Plan Assessment/Plan (1) CHRISTOPHER (acute kidney injury): (2) Head injury: (3) Dehydration: (4) Nausea and vomiting: (5) Fall: (6) Closed head injury: PLAN: Plan Closed head injury/scalp contusion - Patient with significant Lira sign - CT of the brain x 2 unremarkable - CT of the face and sinuses unremarkable - CT cervical spine unremarkable - Per discussion with patient her neurologist, Dr. Main is concerned that this may be related to an acute exacerbation of her MS -Once renal function has improved will obtain a noncontrasted MRI of her brain--> likely tomorrow--> discussed delay with patient - Acute confusion on presentation likely related to this and patient may have concussion/postconcussive symptoms - Mental status is clear today CHRISTOPHER on CKD stage II secondary to dehydration - Baseline renal function appears to be between 1 and 1.2 - FeNa was obtained and was found to be 0.66 consistent with prerenal etiology - Will hydrate with 2 L IV fluids and reassess in a.m. - Discontinue nephrology consult as patient is improving considerably with IV fluids - DC Palomo - Renal ultrasound pending Fall - As noted above neurology feels it is likely related to an exacerbation of MS - Will check contrasted MRI soon as renal function will allow-suspect tomorrow - PT/OT placement - Highly anticipate patient will need placement at discharge Constipation - CT of the abdomen pelvis showed large fecal load in the colon - Continue home Colace twice daily - Add MiraLAX 17 g twice daily for now with holding for liquid stool - Continue to monitor stool output Nausea and vomiting - The patient attributes mostly to nasal drainage/postnasal drip - For now we will start Mucinex 1200 p.o. twice daily - may also be related to significant constipation see still regimen as above Toxic/metabolic encephalopathy - Suspect related to closed head injury - Patient may have some mild postconcussive symptoms - TSH within normal limits - Clinically improved COPD with chronic hypoxic respiratory failure second alpha-1 antitrypsin deficiency - Patient wears 2.5 L at night and 3 L as needed during the day - Continue home budesonide - As needed albuterol - I-S Valvular heart disease - Patient with moderate mitral valve stenosis - Murmur noted on exam - EF of 65% with negative bubble study - Continue outpatient follow-up CAD/PAD/essential hypertension/hyperlipidemia/bilateral carotid artery stenosis/TIA - Patient with previous PCI for coronary arteries as well as peripheral iliac artery - History of carotid endarterectomy - Continue baby aspirin - Okay to reinitiate apixaban with negative head CT - Continue Coreg - Continue amlodipine - Continue statin PAF - Currently in sinus rhythm - Continue beta-blockade - Restart Eliquis with negative CT Psoriatic arthritis - Patient not on any suppressive therapy - No signs of acute rash - Monitor MS - Follows with neurology - Contrasted MRI once renal function improves - If any abnormalities noted on contrasted MRI will call primary neurologist Chronic normocytic anemia - Hemoglobin stable Chronic thrombocytopenia - Slight drop but relatively stable - repeat lab in a.m. - Check coags - May need outpatient follow-up at oncology if persistent Hypothyroidism - Continue home levothyroxine -TSH is within normal limits - History of partial thyroidectomy Allergic rhinitis - Suspect contributing to her postnasal drip - Continue home nasal spray - Mucinex as noted above GERD - Continue home PPI History of brain aneurysm - Previous coiling - No acute problems Tobacco abuse - Patient continues to smoke - Nicotine replacement available if needed - Encourage cessation DVT prophylaxis - Restart home Eliquis with negative CT brain CODE STATUS - Full code Charges/Coding Visit Charges Inpatient E&M: 32852 Subs Hosp L3 08/10/25 1607 <Electronically signed by Eva Mortensen DO> Cosigner Signature (if applicable): CC: ~ Signed [facility] Work Phone: [phone]) 727-673509-22-2025 Radiology Diagnostic study [facility]09-21-2025 Progress note Author Neha Watson [facility] Note Date/Time August 09, 2025 5:08pm [facility] Medical Records Department [address] [place] [address] Progress Note 08/09/25 1527 MR#: [id number] Acct: [id number] Name: ANGÉLCIA YO Rep #:[id number] 2 : 1955 70 From: Neha Watson MD PCP: Dr. Daron Benton MD Status:ADM IN Location: [place] [id number] Subjective Subjective Patient seen and examined with her nurse by her bedside. Patient is confused and kept asking where she was. She knew her name but could not tell her date ofbirth or the year or where she was. Unable to do comprehensive review of systemthough she complained of headache. She has remained hemodynamically stable. She had a repeat CT of the brain today which did not show any evidence of intracranial bleed. Objective Data Objective Data Vital Signs: Vital Signs Temp Pulse Resp BP Pulse Ox O2 Del Method 97.1 F L 57 L 18 149/64 H 98 Room Air 08/09/25 08:34 08/09/25 08:34 08/09/25 08:34 08/09/25 08:34 08/09/25 08:34 08/09/25 08:34 Oxygen Delivery Method Room Air Weight: 105 lb 6.095 oz Body Mass Index (BMI) 17.5 Intake & Output: Intake and Output for Last 24 Hours 08/07/25 08/08/25 08/09/25 23:59 23:59 23:59 Intake Total 0 / 0 1375 / 1375 Output Total 600 / 600 Balance 0 / 0 775 / 775 Medical Nutrition Assessment Dietitian: Malnutrition Criteria Met Start: 08/09/25 13:03 Freq: Status: Active Protocol: Document 08/09/25 13:04 RMA (Rec: 08/09/25 13:04 RMA [id number]) Nutrition Malnutrition Evidence of Yes Malnutrition Exists Malnutrition ( Chronic moderate): Evidenced By Suboptimal Energy Intake (Moderate),Weight Loss ( Moderate),Physical Changes (Moderate) Clinical Problem Chronic Disease or Condition Related Malnutrition Etiology moderate protein-calorie malnutrition in the context of chronic disease and debility related to inadequate oral/energy intake Signs/Symptoms as evidenced by BMI 17.5, ~ 4-5% unintentional weight loss x past 2-3 months, moderate muscle wasting andfat depletion in the clavicle, face, arms and legs as well as PO meeting less than 75% estimated nutrition needs Status Active Problem Recommendation Dietitian Will liberalize diet to regular/no added salt. Recommendations/ Will continue 120mL ensure plus HP 3 times per day w/ Changes medpass. Will add additional ONS as needed if weight/oral intake decline. Lab / Micro Data 08/09/25 06:08 08/09/25 06:08 Labs: Laboratory Results - last 24 hr 08/08/25 22:17: WBC 9.8, RBC 4.22, Hgb 11.7 L, Hct 36.3 L, MCV 86.0, MCH 27.7, MCHC 32.2, RDW Std Deviation 55.8 H, RDW Coeff of David 17.9 H, Plt Count 122 L, MPV 11.0, Immature Gran % (Auto) 0.500, Neut % (Auto) 80.1 H, Lymph % (Auto) 8.0L, [place] % (Auto) 7.7, Eos % (Auto) 3.4, Baso % (Auto) 0.3, Absolute Neuts (auto)7.9 H, Absolute Lymphs (auto) 0.78 L, Nucleated RBC % 0, PT 14.9, INR 1.2, APTT 30.6, Sodium 137, Potassium 4.4, Chloride 98, Carbon Dioxide 22.8, Anion Gap 16 H, BUN 80 H, Creatinine 3.90 H, Estim Creat Clear Calc 10.42 L, Est GFR (MDRD) Non-Af 12 L, BUN/Creatinine Ratio 20.5 H, Glucose 108 H, Calcium 9.4, Magnesium 3.0 H, Total Bilirubin 0.35, Direct Bilirubin 0.18, AST 24, ALT 23, Alkaline Phosphatase 104, Ammonia 12.1, Total Creatine Kinase 180, Total Protein 6.9, Albumin 4.0, Globulin 2.9, Procalcitonin 0.10, Ethyl Alcohol < 10.1 08/08/25 22:47: Phosphorus 5.6 H, TSH 2.120 08/08/25 23:00: Urine Color Yellow, Urine Clarity Clear, Urine pH 5.0, Ur Specific Logan 1.020, Urine Protein 30 H, Urine Glucose (UA) Normal, Urine Ketones Negative, Urine Occult Blood 10 H, Urine Nitrite Negative, Urine Bilirubin Negative, Urine Urobilinogen Normal, Ur Leukocyte Esterase 25 H, UrineRBC 0-5 SEEN, Urine WBC 5- 10 SEEN, Ur Squamous Epith Cells 0-5 SEEN, Ur Renal Epithelial Cell 0-5 SEEN, Urine Bacteria 2+, Hyaline Casts 10-25 SEEN, Urine Mucus 0 SEEN, Ur Random Sodium 27, Urine Creatinine 117.00, Urine Opiates ScreenNEGATIVE, U Buprenorphine Qual NEGATIVE, Ur Oxycodone Screen PRESUMPTIVE POSITIVE, Urine Methadone Screen NEGATIVE, Urine Fentanyl Screen NEGATIVE, Ur Barbiturates Screen NEGATIVE, Ur Phencyclidine Scrn NEGATIVE, Ur Amphetamines Screen NEGATIVE, U Benzodiazepines Scrn NEGATIVE, Urine Cocaine Screen NEGATIVE,U Cannabinoids Screen NEGATIVE 08/09/25 06:08: WBC 5.6, RBC 3.75 L, Hgb 10.7 L, Hct 32.1 L, MCV 85.6, MCH 28.5,MCHC 33.3, RDW Std Deviation 54.8 H, RDW Coeff of David 17.8 H, Plt Count 106 L, MPV 10.1, Immature Gran % (Auto) 0.200, Neut % (Auto) 65.8, Lymph % (Auto) 16.0 L, [place] % (Auto) 11.4 H, Eos % (Auto) 6.1 H, Baso % (Auto) 0.5, Absolute Neuts (auto) 3.7, Absolute Lymphs (auto) 0.89, Nucleated RBC % 0, Sodium 140, Potassium 4.2, Chloride 102, Carbon Dioxide 24.7, Anion Gap 14, BUN 78 H, Creatinine 3.95 H, Estim Creat Clear Calc 9.86 L*, Est GFR (MDRD) Non-Af 12 L, BUN/Creatinine Ratio 19.7, Glucose 88, Calcium 9.2, Total Bilirubin 0.37, AST 22, ALT 20, Alkaline Phosphatase 94, Total Protein 6.3, Albumin 3.8, Globulin 2.5, Albumin/Globulin Ratio 1.5 Radiography Diagnostic Testing: Radiology Impression Brain CT 08/08/25 22:13 IMPRESSION: 1. No acute intracranial abnormality. 2. Moderate right frontal scalp hematoma/contusion. 3. No acute calvarial or maxillofacial fracture. 4. No acute cervical spine fracture or malalignment. 5. Additional non-acute ancillary findings, as described above. Reading Location: [id number] Cervical Spine CT 08/08/25 22:13 IMPRESSION: 1. No acute intracranial abnormality. 2. Moderate right frontal scalp hematoma/contusion. 3. No acute calvarial or maxillofacial fracture. 4. No acute cervical spine fracture or malalignment. 5. Additional non-acute ancillary findings, as described above. Reading Location: [id number] Chest X-Ray 08/08/25 22:13 IMPRESSION: No Acute Findings. Reading [facility] Facial/Sinus 08/08/25 22:13 IMPRESSION: 1. No acute intracranial abnormality. 2. Moderate right frontal scalp hematoma/contusion. 3. No acute calvarial or maxillofacial fracture. 4. No acute cervical spine fracture or malalignment. 5. Additional non-acute ancillary findings, as described above. Reading Location: [id number] Pelvis X-Ray 08/08/25 22:13 IMPRESSION: No radiographic evidence of an acute osseous injury. - Findings, limitations and recommendations discussed above. Reading Location: [facility] Shoulder X-Ray 08/08/25 22:15 IMPRESSION: No radiographic evidence of an acute osseous injury at the right shoulder. - Findings discussed above. Reading Location: [facility] Brain CT 08/09/25 08:00 IMPRESSION: No acute intracranial abnormalities. Reading Location: [facility] Abdomen/Pelvis CT 08/09/25 08:42 IMPRESSION: Perinephric fat stranding. No hydronephrosis or nephrolithiasis. Correlation with urinalysis is recommended. Large amount of fecal load in the colon. Reading Location: [facility] Physical Exam Const alert and no apparent distress Constitutional Narrative: confused, restless, alert and oriented only to self General Appearance: cooperative HEENT normocephalic, head/scalp atraumatic, moist oral mucous membranes and oropharynxnormal Eyes EOMs intact bilaterally Neck supple and no JVD Lymph Lymphatic: no lymphedema noted Resp normal respiratory effort, normal air movement and clear to auscultation bilaterally Resp Narrative: on room air Cardio regular rate, regular rhythm, S1 normal heart sound, S2 normal heart sound and no murmurs GI normal to inspection, nondistended, normoactive bowel sounds, soft to palpation and non-tender Extremity normal capillary refill, no clubbing, cyanosis or edema and no calf tenderness General Extremity: no tenderness to palpation of joints or extremities Skin General Skin Exam: no breakdown Neuro no focal motor deficits Motor Exam: general weakness Psych Psych Narrative: confused, alert and oriented only to self. Assessment & Plan Assessment/Plan (1) Altered mental status: (2) Head injury: (3) Acute kidney injury: PLAN: Plan # Debility due to mechanical fall with resultant head injury * Patient admitted with a fall. She sustained a laceration on his scalp. CT of the brain did not show any evidence of intracranial bleed and showed a moderate right frontal scalp hematoma/contusion. * She had a repeat CT of the brain which did not show any evidence of any intracranial bleed. * On p.o. Tylenol as needed for pain as well as p.o. oxycodone and IV morphine as needed * PT OT on board. For precautions. * #CHRISTOPHER: * Creatinine is 3.95. Creatinine was 3.9 on admission. Baseline creatinine from July 22, 2025 was 1.14 and is now 3.95. CT of the abdomen and pelvis did not show any evidence of kidney stones. * Consult nephrology * Hydrate gently with IV fluids. * Insert Palomo catheter to monitor urine output #Scalp hematoma due to mechanical fall: Management as above #Acute encephalopathy: Patient confused. She is alert and oriented to person only. May be due to the uremia from the #Chronic hypoxic respiratory failure due to COPD: Currently on 2 L of oxygen. Breathing treatments bronchodilators. Titrate oxygen to maintain saturation above 90%. #CAD and PAD: On aspirin and Coreg. Not on statin due to intolerance. #Hypertension: On lisinopril which is on hold due to CHRISTOPHER. On carvedilol. #History of brain aneurysm: S/p coiling. #Paroxysmal A-fib: On Coreg. Eliquis on hold due to mechanical fall #Anxiety and depression: On Paxil which was held due to CHRISTOPHER #History of TIA: On aspirin. Eliquis on hold #History of carotid stenosis s/p bilateral carotid endarterectomy: On aspirin. Not on statin. Eliquis currently on hold. #Hypertension: Amlodipine and Coreg. IV hydralazine as needed. Lisinopril helddue to CHRISTOPHER #Hypothyroidism: S/p thyroidectomy: On Synthroid #Nicotine dependence: Counseled to quit. DVT prophylaxis: On Eliquis which is currently on hold. SCDs. Charges/Coding Visit Charges Inpatient E&M: 37718 Subs Hosp L2 08/09/25 1709 <Electronically signed by Neha Watson MD> Neha Watson MD Cosigner Signature (if applicable): CC: ~ Signed [facility] Work Phone: 1([phone]) 721-124109-21-2025 Radiology Diagnostic study [facility]09-21-2025 Radiology Diagnostic study [facility]09-21-2025 Discharge summary Author Yasmani Haynes [facility] Note Date/Time August 09, 2025 1:37am [facility] Medical Records Department [address] [place] [address] Emergency Department Summary 08/08/25 MR#: [id number] Acct: [id number] Name: ANGÉLICA YO Rep #:[id number] : 1955 70 From: Yasmani Haynes DO PCP: Dr. Daron Benton MD Status:ADM IN Location: [place] [address] HPI History of Present Illness Chief Complaint: Alt LOC Informant: patient and EMS Limited: other (Confusion) Narrative Narrative: Patient is a 70-year-old female with past medical history of hypertension as well as paroxysmal atrial fibrillation currently on Eliquis. According to EMS patient activated her life alert. They state that when they arrived she was awake but confused and found on the floor. It is unknown what caused the fall as the patient is confused at this time and does not remember how she fell. The patient endorses a headache as well as right shoulder pain at this time. [facility] Medical History Essential hypertension Hypertensive emergency NSTEMI, initial episode of care [...] (dyspnea on exertion) Atherosclerotic heart disease of [place] coronary artery without angina pectoris Cardiac murmur [...] QDAY PRN indigestio n 11/24/24 03/19/25 History cholecalciferol (vitamin D3) 125 125 mcg PO DAILY supp lement 04/18/25 Unknown History mcg (5,000 unit) capsule docusate sodium 100 mg capsule 100 mg PO BID stool sof tener 7 04/18/25 Unknown Rx (Colace) days #14 caps polysaccharide iron complex 150 mg 150 mg [...] kcal/mL oral liquid (Ensure Plus High Protein) baclofen 10 mg tablet 10 mg PO TID #0 tabs 5 Unknown Rx gabapentin 300 mg capsule 300 [...] heart #18 0 tabs 07/22/25 Unknown Rx apixaban 5 mg tablet (Eliquis) 5 mg PO Q12H anticoagul ation #180 08/03/25 Unknown Rx tabs rosuvastatin 20 mg tablet 20 mg PO QHS hld #90 tabs Unknown Rx furosemide 40 mg tablet 40 mg PO QDAY 08/06/25 Unkno wn History Allergy/AdvReac Type Severity Reaction Status Date / Time colestipol (From Colestid) Allergy Mild unknown Verified 08/08/25 21:58 pregabalin (From Lyrica) Allergy Mild Hives Verified 08/08/25 21:58 amitriptyline Allergy Rash Verified 08/08/25 21:58 temazepam (From Restoril) AdvReac Mild Nausea/Vom/ Verified 08/08/25 21:58 Diarrhea Antihistamines - Alkylamine AdvReac Nausea/Vom/ Verified 08/08/25 21:58 Diarrhea Antihistamines - Ethanolamine AdvReac Nausea/Vom/ Verified 08/08/25 21:58 Diarrhea Antihistamines - AdvReac Nausea/Vom/ Verified 08/08/25 21:58 Ethylenediamine Diarrhea Antihistamines - Piperazine AdvReac Nausea/Vom/ Verified 08/08/25 21:58 Diarrhea Antihistamines - Piperidine AdvReac Nausea/Vom/ Verified 08/08/25 21:58 Diarrhea aspirin AdvReac "I'M ON Verified 08/08/25 21:58 BLOOD THINNERS" codeine AdvReac Nausea Verified 08/08/25 21:58 Corticosteroids AdvReac Upset Verified 08/08/25 21:58 (Glucocorticoids) Stomach morphine AdvReac Nausea Verified 08/08/25 21:58 Vayjfyu-TKB-SqS Reductase AdvReac Nausea Verified 08/08/25 21:58 Inhibitor (Jpojgkc-Xrb-Yco Reductase Inhibitor) Family History Mother Cancer CAD [...] and tea ROS ROS ED ROS Narrative Please note review of systems may be unreliable as patient is confused at this time Constitutional Constitutional ED: Denies chills or fever(s) Eyes Eyes: Denies change in vision ENT ENT ED: Denies sore throat Cardiovascular Cardiovascular: Denies chest pain Respiratory/Chest Respiratory/Chest: Denies cough or dyspnea Gastrointestinal Gastrointestinal: Denies abdominal pain, diarrhea, nausea or vomiting Genitourinary Genitourinary ED: Denies dysuria Musculoskeletal Musculoskeletal: Reports other Details: Positive right shoulder pain ; Denies back pain or neck pain Integumentary Reports Abrasions; Denies rash Neurologic Neurologic: Reports headache(s) Hematologic/Lymphatic Hematologic/Lymphatic: Reports easy bleeding and easy bruising EXAM Physical Exam Const Vital Signs: 08/08/25 21:58 08/08/25 22:58 08/08/25 23:00 Temperature 98.4 F Temperature Source Oral Pulse Rate 66 50 L 50 L Respiratory Rate 18 14 14 Blood Pressure 176/100 H 162/82 H 162/82 H Blood Pressure Mean 125 108 108 Pulse Ox 99 100 100 Oxygen Delivery Method Room Air Room Air Room Air Positive well nourished and well developed General Appearance ED: well developed HEENT HEENT Narrative: Patient has a large hematoma to the right frontal portion of the scalp. It is approximately 5 x 6 cm in size. There is a area of scalp laceration along the right anterior parietal portion as well without active bleeding. No signs of depressed or basilar skull fracture No septal hematoma noted Eyes PERRL and EOMs intact bilaterally Eyes Narrative: There is a subconjunctival hemorrhage noted to the right eye Neck supple Neck Narrative: No bony deformity or step-off of the cervical spine; no midline tenderness to palpation Chest Wall palpation of chest normal Chest Narrative: No pain on palpation of the chest wall No bony deformity or subcutaneous emphysema noted Resp normal respiratory effort and clear to auscultation bilaterally Resp Narrative: Breath sounds are diminished throughout but overall clear to auscultation without signs of respiratory distress Cardio regular rate and regular rhythm Rate: other Other Details: Radial and carotid pulses are equal and symmetric GI non-tender, non-distended and no masses GI Narrative: Abdomen is soft nontender and nondistended with hypoactive bowel sounds. No voluntary guarding or rigidity or pulsatile mass No abrasions or ecchymosis noted to the abdominal wall. Auscultation: hypoactive bowel sounds Palpation: soft Back/Spine Back/Spine Narrative: No bony deformity or step-off of the thoracic or lumbar spine; no midline tenderness to palpation Extremity Extremity Narrative: There is no shortening or external rotation of either lower extremity. Pelvis is stable. There is ecchymosis and soft tissue swelling noted to the anterior aspect of theright shoulder; however no obvious bony deformity or joint effusion or sulcus sign noted. All compartments are soft and compressible going against compartment syndrome Neuro CN's II-XII intact bilaterally Neuro Narrative: Patient is awake and alert to person only at this time. She is able to tell me her name and follow commands but has difficulty answeringquestions and keeps repeating the same phrases over and over GCS is 14 NIH stroke scale score of 1 secondary to confusion Sensorium / Orientation: alert Psych mental status grossly normal Skin Skin Narrative: Large hematoma with scalp laceration as documented above as well as ecchymosis to the right shoulder MDM MDM MDM Narrative Medical decision making narrative: Patient arrived to the ER hypertensive but has a past medical history of this. With the fact she is on Eliquis and struck her head there is high concern for subarachnoid or subdural hemorrhage so CT of the head was obtained. CT of the face and neck were ordered as well in order to check for potential facial fracture versus cervical compression fracture. CTs revealed no signs of acute trauma. As it is unknown how long the patient was down there is concern for rhabdomyolysis so CPK was obtained. This was normal going against rhabdomyolysis. In order to check for the cause of her altered mental status such as intoxication or hepatic encephalopathy or infectious process basic labs and a urine sample ordered as well. Urine sample showed no obvious signs of UTI. THS is normal going against myxedema coma. The patient's kidney function however is elevated at 3.9 when chart review reveals previous was 1.85. At thistime the patient has acute kidney injury as well as altered mental status and asshe lives at home alone is not safe to be discharged. As she does not have a traumatic subarachnoid subdural hemorrhage I do not feel the need for transfer. The case was discussed with hospitalist who agrees excepted patient for continued care regarding her CHRISTOPHER and encephalopathy. History & Record Review Additional record(s) reviewed:: Prior ED visit Lab Data Attestation: I reviewed the patient's lab results. Labs: Laboratory Results - last 24 hr 08/08/25 08/08/25 08/08/25 22:17 22:47 23:00 WBC 9.8 RBC 4.22 Hgb 11.7 L Hct 36.3 L MCV 86.0 MCH 27.7 MCHC 32.2 RDW Std Deviation 55.8 H RDW Coeff of David 17.9 H Plt Count 122 L MPV 11.0 Immature Gran % (Auto) 0.500 Neut % (Auto) 80.1 H Lymph % (Auto) 8.0 L [place] % (Auto) 7.7 Eos % (Auto) 3.4 Baso % (Auto) 0.3 Absolute Neuts (auto) 7.9 H Absolute Lymphs (auto) 0.78 L Nucleated RBC % 0 PT 14.9 INR 1.2 APTT 30.6 Sodium 137 Potassium 4.4 Chloride 98 Carbon Dioxide 22.8 Anion Gap 16 H BUN 80 H Creatinine 3.90 H Estim Creat Clear Calc 10.42 L Est GFR (MDRD) Non-Af 12 L BUN/Creatinine Ratio 20.5 H Glucose 108 H Calcium 9.4 Phosphorus 5.6 H Magnesium 3.0 H Total Bilirubin 0.35 Direct Bilirubin 0.18 AST 24 ALT 23 Alkaline Phosphatase 104 Ammonia 12.1 Total Creatine Kinase 180 Total Protein 6.9 Albumin 4.0 Globulin 2.9 TSH 2.120 Urine Color Yellow Urine Clarity Clear Urine pH 5.0 Ur Specific Logan 1.020 Urine Protein 30 H Urine Glucose (UA) Normal Urine Ketones Negative Urine Occult Blood 10 H Urine Nitrite Negative Urine Bilirubin Negative Urine Urobilinogen Normal Ur Leukocyte Esterase 25 H Urine RBC 0-5 SEEN Urine WBC 5-10 SEEN Ur Squamous Epith Cells 0-5 SEEN Ur Renal Epithelial Cell 0-5 SEEN Urine Bacteria 2+ Hyaline Casts 10-25 SEEN Urine Mucus 0 SEEN Urine Opiates Screen NEGATIVE U Buprenorphine Qual NEGATIVE Ur Oxycodone Screen PRESUMPTIVE POSITIVE Urine Methadone Screen NEGATIVE Urine Fentanyl Screen NEGATIVE Ur Barbiturates Screen NEGATIVE Ur Phencyclidine Scrn NEGATIVE Ur Amphetamines Screen NEGATIVE U Benzodiazepines Scrn NEGATIVE Urine Cocaine Screen NEGATIVE U Cannabinoids Screen NEGATIVE Ethyl Alcohol < 10.1 Radiography Diagnostic Testing: Clinical Impression(s) from Imaging Studies Brain CT 08/08/25 22:13 IMPRESSION: 1. No acute intracranial abnormality. 2. Moderate right frontal scalp hematoma/contusion. 3. No acute calvarial or maxillofacial fracture. 4. No acute cervical spine fracture or malalignment. 5. Additional non-acute ancillary findings, as described above. Reading Location: [id number] Cervical Spine CT 08/08/25 22:13 IMPRESSION: 1. No acute intracranial abnormality. 2. Moderate right frontal scalp hematoma/contusion. 3. No acute calvarial or maxillofacial fracture. 4. No acute cervical spine fracture or malalignment. 5. Additional non-acute ancillary findings, as described above. Reading Location: [id number] Chest X-Ray 08/08/25 22:13 IMPRESSION: No Acute Findings. Reading Location[facility] Facial/Sinus 08/08/25 22:13 IMPRESSION: 1. No acute intracranial abnormality. 2. Moderate right frontal scalp hematoma/contusion. 3. No acute calvarial or maxillofacial fracture. 4. No acute cervical spine fracture or malalignment. 5. Additional non-acute ancillary findings, as described above. Reading Location: [id number] Pelvis X-Ray 08/08/25 22:13 IMPRESSION: No radiographic evidence of an acute osseous injury. - Findings, limitations and recommendations discussed above. Reading Location: [id number] Shoulder X-Ray 08/08/25 22:15 IMPRESSION: No radiographic evidence of an acute osseous injury at the right shoulder. - Findings discussed above. Reading Location: [id number] Chest x-ray as interpreted by the emergency medicine physician reveals no acute infiltrate pneumothorax or rib fracture Pelvis x-rays interpreted by the emergency medicine physician reveals degenerative changes without acute fracture or dislocation Right shoulder x-ray is interpreted by the emergency medicine physician reveals no acute fracture dislocation or joint effusion. 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 Call [facility] ([phone]) or report to the closest Emergency Room. Call 911 if necessary. 08/09/25 0137 <Electronically signed by Yasmani Haynes DO> Cosigner Signature (if applicable): CC: Dr. Daron Benton MD ~ Signed [facility] Work Phone: 1(172) 792-300409-21-2025 History and physical note Author Sommer Resendiz [facility] Note Date/Time August 09, 2025 12:12am [facility] Medical Records Department [address] [place] [address] H&P Exam - Hospitalist 08/08/25 2334 MR#: [id number] Acct: [id number] Name: ANGÉLICA YO Rep #:[id number] : 1955 70 From: Sommer Resendiz MD PCP: Dr. Daron Benton MD Status:ADM IN Location: [facility] [id number] HPI - General General Date of Admission: 08/08/25 Date of Service: 08/08/25 Chief Complaint: Fall, confusion. HPI Narrative The patient is a 70 y/o F w/ PMHx: PAF, Chronic Hypoxic Hypoxic Respiratory Failure secondary to COPD with alpha-1 antitrypsin carrier status (2.5L q HS andper patient using 3L daily and PRN, last pulmonary visit noted 12/24/24), Anxiety and Depression, Tobacco use, Chronic back pain, Hx TIA, Chronic thrombocytopenia, Psoriatic arthritis, GERD, Carotid disease s/p BL CEA, Multiple sclerosis, CAD s/p PCI, PAD s/p peripheral PCI iliac artery, Hypothyroidism s/p partial thyroidectomy, Hx Brain aneurysm status post coiling,CKD stage III unclear subtype per GFR trending, Allergic rhinitis, Chronic anemia who presents to the [facility] ED on 08/09/2025 with history of mechanical fall with head injury with EMS noting upon arrival patientwith dried blood to her head noted to be confused and occasionally repeating herself with blood sugar 121 with patient report of a mild headache prompting transition to the ED for further evaluation. Workup in the ED included T98.4, heart rate 66, BP 176/100, respiratory rate 18, 99% on room air with most recentrepeat vitals T98.4, heart rate 52, BP 166/67, respiratory rate 14, 100% room air, CBC with WC is 9.8, hemoglobin 0.7, MCV 86, platelet 122 with left shift and lymphopenia, unremarkable coags, CMP with anion gap 16, BUN/creatinine 80/3.90, GFR 12, glucose 108, magnesium 3.0, hepatic profile unremarkable, ammonia level 12.1, total creatinine kinase 180, TSH pending per ED, urinalysis with mildly elevated specific gravity 1.020, protein 30, occult blood 10, negative nitrite, leukocyte esterase only 25 with urine WBCs 5-10 and 2+ bacteria, not marked appearing with urine culture pending per ED, CT brain with no acute intracranial findings with a moderate right frontal scalp hematoma/contusion, CT cervical spine with no acute cervical spinal fracture or malalignment, chest x-ray with no acute cardiopulmonary findings, CT facial/sinus with no acute calvarial or maxillofacial fracture concerns, plain film of the pelvis with no acute osseous injury, plain film of the shoulder withno acute osseous injury. In the ED patient ministered maintenance IV fluids andTylenol 1000 mg p.o. x 1. [facility] Medical History Essential hypertension Hypertensive emergency NSTEMI, initial episode of care [...] (dyspnea on exertion) Atherosclerotic heart disease of [place] coronary artery without angina pectoris Cardiac murmur [...] QDAY PRN indigestio n 11/24/24 03/19/25 History cholecalciferol (vitamin D3) 125 125 mcg PO DAILY supp lement 04/18/25 Unknown History mcg (5,000 unit) capsule docusate sodium 100 mg capsule 100 mg PO BID stool sof tener 7 04/18/25 Unknown Rx (Colace) days #14 caps polysaccharide iron complex 150 mg 150 mg [...] kcal/mL oral liquid (Ensure Plus High Protein) baclofen 10 mg tablet 10 mg PO TID #0 tabs 5 Unknown Rx gabapentin 300 mg capsule 300 [...] heart #18 0 tabs 07/22/25 Unknown Rx apixaban 5 mg tablet (Eliquis) 5 mg PO Q12H anticoagul ation #180 08/03/25 Unknown Rx tabs rosuvastatin 20 mg tablet 20 mg PO QHS hld #90 tabs Unknown Rx furosemide 40 mg tablet 40 mg PO QDAY 08/06/25 Unkno wn History Allergy/AdvReac Type Severity Reaction Status Date / Time colestipol (From Colestid) Allergy Mild unknown Verified 08/08/25 21:58 pregabalin (From Lyrica) Allergy Mild Hives Verified 08/08/25 21:58 amitriptyline Allergy Rash Verified 08/08/25 21:58 temazepam (From Restoril) AdvReac Mild Nausea/Vom/ Verified 08/08/25 21:58 Diarrhea Antihistamines - Alkylamine AdvReac Nausea/Vom/ Verified 08/08/25 21:58 Diarrhea Antihistamines - Ethanolamine AdvReac Nausea/Vom/ Verified 08/08/25 21:58 Diarrhea Antihistamines - AdvReac Nausea/Vom/ Verified 08/08/25 21:58 Ethylenediamine Diarrhea Antihistamines - Piperazine AdvReac Nausea/Vom/ Verified 08/08/25 21:58 Diarrhea Antihistamines - Piperidine AdvReac Nausea/Vom/ Verified 08/08/25 21:58 Diarrhea aspirin AdvReac "I'M ON Verified 08/08/25 21:58 BLOOD THINNERS" codeine AdvReac Nausea Verified 08/08/25 21:58 Corticosteroids AdvReac Upset Verified 08/08/25 21:58 (Glucocorticoids) Stomach morphine AdvReac Nausea Verified 08/08/25 21:58 Nuwalxi-CDI-NpW Reductase AdvReac Nausea Verified 08/08/25 21:58 Inhibitor (Bhdvpou-Esp-Drx Reductase Inhibitor) Family History Mother Cancer CAD [...] Review of Systems ROS Unobtainable: due to encephalopathy Vital Signs Vital Signs Vital Signs: 08/08/25 21:58 08/08/25 22:58 08/08/25 23:00 Temperature 98.4 F Temperature Source Oral Pulse Rate 66 50 L 50 L Respiratory Rate 18 14 14 Blood Pressure 176/100 H 162/82 H 162/82 H Blood Pressure Mean 125 108 108 Pulse Ox 99 100 100 Oxygen Delivery Method Room Air Room Air Room Air Weight Weight: 110 lb 0.171 oz Body Mass Index (BMI) 18.3 Physical Exam Narrative Physical Examination: General: Awake, alert, oriented to self, place and recent events but is perseverating about the type of pill she takes and is difficult to sidetracked, follows some commands, seated upright in the ED bed, no acute distress. Skin: Normal color, normal turgor, no icterus, no cyanosis except occasional stage ecchymoses, abrasion including recent fall with scalp laceration with bleeding abated. HEENT: AT aside from scalp laceration/NC, EOMI, PERRLA, dry MM, unable to discern carotid bruits, no marked JVD noted. Lungs: Diminished, greater bases, occasional end expiratory wheeze, coughing during evaluation. Heart: Regular rate and rhythm; no gallop, rub audible, + SM. Abdomen: Soft, NTTP, ND, normal BS, no appreciated HSM. Extremities: No cyanosis, clubbing, or edema. See skin. Neurological: Patient awake, alert, oriented as noted, cognitive function not baseline intact; pupils equally reactive to light and accommodation, cranial nerves gross normal, moving all 4 extremities, no focal deficits, strength moderately to severely global decrease secondary to acute presentation. Psychiatric: Affect appears fatigued, no acute evidence of depressive or anxietyfeelings but does have underlying history Results Lab / Micro Data 08/08/25 22:17 08/08/25 22:17 Labs: Laboratory Results - last 24 hr 08/08/25 22:17: WBC 9.8, RBC 4.22, Hgb 11.7 L, Hct 36.3 L, MCV 86.0, MCH 27.7, MCHC 32.2, RDW Std Deviation 55.8 H, RDW Coeff of David 17.9 H, Plt Count 122 L, MPV 11.0, Immature Gran % (Auto) 0.500, Neut % (Auto) 80.1 H, Lymph % (Auto) 8.0L, [place] % (Auto) 7.7, Eos % (Auto) 3.4, Baso % (Auto) 0.3, Absolute Neuts (auto)7.9 H, Absolute Lymphs (auto) 0.78 L, Nucleated RBC % 0, PT 14.9, INR 1.2, APTT 30.6, Sodium 137, Potassium 4.4, Chloride 98, Carbon Dioxide 22.8, Anion Gap 16 H, BUN 80 H, Creatinine 3.90 H, Estim Creat Clear Calc 10.42 L, Est GFR (MDRD) Non-Af 12 L, BUN/Creatinine Ratio 20.5 H, Glucose 108 H, Calcium 9.4, Magnesium 3.0 H, Total Bilirubin 0.35, Direct Bilirubin 0.18, AST 24, ALT 23, Alkaline Phosphatase 104, Ammonia 12.1, Total Creatine Kinase 180, Total Protein 6.9, Albumin 4.0, Globulin 2.9, Ethyl Alcohol < 10.1 08/08/25 23:00: Urine Color Yellow, Urine Clarity Clear, Urine pH 5.0, Ur Specific Logan 1.020, Urine Protein 30 H, Urine Glucose (UA) Normal, Urine Ketones Negative, Urine Occult Blood 10 H, Urine Nitrite Negative, Urine Bilirubin Negative, Urine Urobilinogen Normal, Ur Leukocyte Esterase 25 H, UrineRBC 0-5 SEEN, Urine WBC 5- 10 SEEN, Ur Squamous Epith Cells 0-5 SEEN, Ur Renal Epithelial Cell 0-5 SEEN, Urine Bacteria 2+, Hyaline Casts 10-25 SEEN, Urine Mucus 0 SEEN Imaging Radiology Impression Brain CT 08/08/25 22:13 IMPRESSION: 1. No acute intracranial abnormality. 2. Moderate right frontal scalp hematoma/contusion. 3. No acute calvarial or maxillofacial fracture. 4. No acute cervical spine fracture or malalignment. 5. Additional non-acute ancillary findings, as described above. Reading Location: [facility] Cervical Spine CT 08/08/25 22:13 IMPRESSION: 1. No acute intracranial abnormality. 2. Moderate right frontal scalp hematoma/contusion. 3. No acute calvarial or maxillofacial fracture. 4. No acute cervical spine fracture or malalignment. 5. Additional non-acute ancillary findings, as described above. Reading Location: [facility] Chest X-Ray 08/08/25 22:13 IMPRESSION: No Acute Findings. Reading [facility] Facial/Sinus 08/08/25 22:13 IMPRESSION: 1. No acute intracranial abnormality. 2. Moderate right frontal scalp hematoma/contusion. 3. No acute calvarial or maxillofacial fracture. 4. No acute cervical spine fracture or malalignment. 5. Additional non-acute ancillary findings, as described above. Reading Location: [id number] Pelvis X-Ray 08/08/25 22:13 IMPRESSION: No radiographic evidence of an acute osseous injury. - Findings, limitations and recommendations discussed above. Reading Location: [facility] Shoulder X-Ray 08/08/25 22:15 IMPRESSION: No radiographic evidence of an acute osseous injury at the right shoulder. - Findings discussed above. Reading Location: [facility] Assessment & Plan Assessment/Plan (1) CHRISTOPHER (acute kidney injury): PLAN: Plan The patient is a 70 y/o F w/ PMHx: PAF, Chronic Hypoxic Hypoxic Respiratory Failure secondary to COPD with alpha-1 antitrypsin carrier status (2.5L q HS andper patient using 3L daily and PRN, last pulmonary visit noted 12/24/24), Anxiety and Depression, Tobacco use, Chronic back pain, Hx TIA, Chronic thrombocytopenia, Psoriatic arthritis, GERD, Carotid disease s/p BL CEA, Multiple sclerosis, CAD s/p PCI, PAD s/p peripheral PCI iliac artery, Hypothyroidism s/p partial thyroidectomy, Hx Brain aneurysm status post coiling,CKD stage III unclear subtype per GFR trending, Allergic rhinitis, Chronic anemia who presents to the [facility] ED on 08/09/2025 with history of mechanical fall with head injury with EMS noting upon arrival patientwith dried blood to her head noted to be confused and occasionally repeating herself with blood sugar 121 with patient report of a mild headache prompting transition to the ED for further evaluation. #1. Acute kidney injury on CKD stage III unclear subtype, unclear etiology, potentially nephrotoxic medication in addition to dehydration/poor intake but uncertain: Will admit to PCU given anticoagulant status with recent fall with plan repeat CT head as noted #2, admission BUN/Cr 80/3.90, GFR 12, prior baseline creatinine noted to be primarily 0.9-1.2. Will judiciously hydrate, hold nephrotoxic medications and repeat chemistry in AM. Will obtain renal ultrasound, obtain FeNa assessment and request nephrology early involvement. #2. Mechanical fall with moderate right frontal scalp hematoma/contusion: Patient with serial fall history, fortunately no other acute finding on imaging of the head, neck, face, pelvis and shoulder, temporally hold anticoagulant therapy, may need to reassess chronic usage of this medication however she is a vasculopath, maintain on fall and aspiration precautions, PT/OT/case management consult for discharge planning. Given no obvious source for mild confusion urine drug screen is pending and will plan for repeat CT head 08/09/2025 to assure no acute concerning findings given anticoagulant history however may needto consider MRI brain pending further evaluation. #3. Encephalopathy, suspected multifactorial secondary to #1, #2: No obvious source of infection, UA not marked appearing however urine culture is pending, chest x- ray not marked appearing, afebrile upon presentation, as noted plan for hold on anticoagulant therapy with repeat CT head 08/09/25 AM, UDS requested, TSHpending. #4. Chronic COPD with chronic hypoxic respiratory failure with alpha-1 antitrypsin carrier status: Will maintain on home oxygen supplementation with normally 2.5 L nightly and per day 3 L as well as as needed, will maintain on ATC budesonide therapy, PRN albuterol, HOB, IS parameters. #5. Valvular heart disease: Most recent echocardiogram 03/19/2025 with normal LV size, LVEF 65%, bubble contrast study negative, no regional wall motion abnormalities, mean transmitral valve gradient 9 mmHg, moderate MVI, moderate MVstenosis. #6. CAD, PAD: Status post coronary and peripheral iliac artery PCI, recent evaluation and admission as noted, continue baby aspirin, noted statin intolerance, continue coreg. Hold Eliquis given #2, holding lisinopril given acute kidney injury as noted. #7. History of brain aneurysm: Status post previous coiling, encourage continued follow-up outpatient and evaluation as previously arranged. #8. PAF: Continue Coreg, temporarily holding Eliquis given fall with plan repeat CT head as noted #2. #9. Anxiety and depression: Given significant kidney injury with reduced GFR will temporally hold Paxil. #10. History of TIA: Will continue baby aspirin, noted statin intolerance, continue hypertensive regimen with hold on nephrotoxic medication. Holding Eliquis given mechanical fall as noted #[address] head to be cautious. #11. Carotid disease: Status post bilateral carotid endarterectomy, continue baby aspirin, noted statin intolerance, continue hypertensive regimen aside fromhold on nephrotoxic medications. Holding Eliquis given mechanical fall as noted#[address] head to be cautious. #12. Psoriatic arthritis: Per current list does not appear to be on any chronicsuppressive type therapy, continue patient chronic pain regimen cautiously. #13. Multiple sclerosis: Complicates presentation, maintain on fall precautions, given significant confusion temporarily holding baclofen and gabapentin regimen, UDS requested as noted above, PT/OT consulted for discharge planning. #14. Chronic normocytic anemia: Admission hemoglobin 11.7, MCV 86, baseline hemoglobin more recently 10-11, stable, continue to trend. #15. Hypertension: Continue home regimen including amlodipine, Coreg regimen, PRN hydralazine. Temporally holding lisinopril given acute kidney injury. #16. Hyperlipidemia: Noted statin intolerance. #17. Hypothyroidism: Status post partial thyroidectomy, continue patient home levothyroxine regimen. TSH pending per ED. #18. Tobacco Abuse: Encouraged cessation, inpatient consultation per RT, NR if desired. #19. Allergic rhinitis: We will continue patient home ipratropium nasal spray. #20. GERD: PPI. #21. Chronic thrombocytopenia: Unclear etiology, admission platelets 147, previous admission had been normal range, last noted 12/17/2024 platelets 230, continue closely monitor. #22. DVT prophylaxis: Holding Eliquis given recent mechanical fall as noted pending repeat CT head, SCDs. #21. CODE status: Patient HCPOA and living will are not in place but previouslyshe has noted that she would want her 2 children to be her medical decision makers. Will continue code status based on her most recent previous CODE STATUSrequest of full code. Charges/Coding Visit Charges Inpatient E&M: 48267 Init Hosp L3 08/09/25 0012 <Electronically signed by Sommer Resendiz MD> Cosigner Signature (if applicable): CC: Dr. Sommer Resendiz MD; Dr. Daron Benton MD~ Signed [facility] Work Phone: 1(697) 448-555009-20-2025 Radiology Diagnostic study [facility]09-20-2025 Radiology Diagnostic study [facility]09-20-2025 Radiology Diagnostic study [facility] 08-08-2025 Radiology Diagnostic study [facility]09-20-2025 Radiology Diagnostic study [facility]09-20-2025 Radiology Diagnostic study [facility]09-04-2025 History of Present illness Narrative* Lizz Lynn APRN - [facility] - 07/23/2025 12:30 PM EDT Visit type: Established Patient Reason for Visit: Follow-up, Multiple Sclerosis, Results, and Dizziness (/) Assessment and Plan 1. Multiple sclerosis (HCC) - baclofen (Lioresal) 20 MG tablet; Take 1 tablet (20 mg) by mouth 3 times daily., Starting Estrella 07/23/2025, Normal Subjective HPI: REVIEW- 04/12 - ED at [facility] for MS flare affective speech, swallowing, VOSS. [...] last night for SBP 200's. Was in [facility] for 1 month over June for issues with BP and weakness after having 2 bleedingulcers and 4 blood transfusions - had PT. She is feeling better since discharge; doing PT at the house. She had MRI brain done at [facility] - I do not have the results [...] Sitting, BP Cuff Size: Small adult) Pulse (!)47 Ht 5' 6" (1.676 m) Wt 106 lb (48.1 kg) [...] 04/04/2023 [APTT} FLP: No results found for: "CHLPL", "TRIG", "HDL", "LDLCALC", "LDLDIRECT" TSH: No results found for: "TSH" VITAMIN B12: No results found for: "UNRULSTB40" No results found for: "PHENYTOIN", "PHENOBARB", "VALPROATE", "CBMZ" No components found for: "TOPIRA" @RESULTINGLABINFO@ No results found for: "LEVETIRACETA", "FERRITIN", "CRP", "DENNIS", "ANCA" No results found for: "CHRISTIANO", "IMMUNOGLOBUL", "OLIGOBANDS" No results found for: "RXM11NX", "HEPCAB" No results found for: "CRP", "ANATITER", "ANCA" FERRITIN: No results found for: "FERRITIN" ---- ECG 12 lead SINUS BRADYCARDIA PROBABLE LEFT ATRIAL ABNORMALITY No previous ECG available for comparison Electronically Signed On 04-05-2023 7:42:10 EDT by Juvenal Benton [email or web address] IMPRESSION and PLAN: Problem List Items Addressed This Visit None Visit Diagnoses Multiple sclerosis (HCC) Relevant Medications baclofen (Lioresal) 20 MG tablet Stable; she had MRI brain at [facility] that I do not have access to; will try to get those. She is not on DMT; continue baclofen 20mg TID and gabapentin 800mg TID. RTO [address] Etelvina Esteves, Lizz Lynn, ROASTER OPERATOR - JUNIOR SOFTWARE ENGINEER, furnish ongoing care related to Angélica Yo [...] family history on file. documented in this [facility]09-04-2025 Radiology Diagnostic study [facility]09-03-2025 Discharge summary Author Ramírez Onofre [facility] Note Date/Time July 23, 2025 12:41am [facility] Medical Records Department [address] [place] [address] Emergency Department Summary 07/22/25 MR#: [id number] Acct: [id number] Name: ANGÉLICA YO Rep #:[id number] : 1955 70 From: Ramírez Onofre [...] (dyspnea on exertion) Atherosclerotic heart disease of [place] coronary artery without angina pectoris Cardiac murmur [...] Nausea/Vom/ Verified 07/22/25 21:55 Diarrhea aspirin AdvReac "I'M ON Verified 07/22/25 21:55 BLOOD THINNERS" codeine AdvReac Nausea Verified 07/22/25 21:55 Corticosteroids AdvReac Upset Verified 07/22/25 21:55 (Glucocorticoids) Stomach morphine AdvReac Nausea Verified 07/22/25 21:55 Htmixhr-VWH-NiR Reductase AdvReac Nausea Verified 07/22/25 21:55 Inhibitor (Qyvpcng-Hkt-Xwr Reductase Inhibitor) Family History Mother Cancer CAD [...] edema or cords. 5 out of 5 prepared foods production team member strength. Dorsi plantarflexion intact. Neurologic exam she is awake alert. Answer questions following commands. Normal speech. No facial droop. Again normal prepared foods production team member strength and dorsi plantarflexion. Fingertip to nose [...] impaired, lethargic or stuporous Coordination / Balance: urxpdy-nq-odbl test normal Speech: speech normal Motor Exam: [...] 70.7 H Lymph % (Auto) 12.6 L [place] % (Auto) 9.6 Eos % (Auto) 5.0 [...] kcal/mL Liquid 120 ml PO TIDCM Qty: 20686 0RF pantoprazole [Protonix] 40 mg tablet,delayed release [...] as prescribed. Tylenol for pain. Print Language: French Disposition Disposition: Home, Self Care What to do if you have Problems For any increased pain, shortness of breath, bleeding, nausea or vomiting, chestpain, or any unexpected problems, contact your Primary Care Provider. Call [facility] ([phone]) or report to the closest Emergency Room. Call 911 if necessary. 07/23/25 0041 <Electronically signed by Ramírez Onofre MD> Cosigner Signature (if applicable): CC: Dr. Daron Benton MD ~ Signed [facility] Work Phone: 1(535) 583-587209-03-2025 Hospital Discharge instructionsAdditional Instructions Check your blood pressures twice daily over the next 5 to 7 days. Follow-up with your primary care physician if your blood pressures are running reasonably well. Take your medications as prescribed. Tylenol for pain.[facility] Work Phone: [phone] Radiology Diagnostic study [facility]07-22-2025 Discharge summary Author Dex Worrell [facility] Note Date/Time June 09, 2025 4:22 pm [facility] Medical Records Department [address] [address] Transfer to Extended Care MR#: [id number] Acct: [id number] Name: ANGÉLICA YO Rep #:[id number] 7 : 1955 69 From: Dex Worrell DO PCP: Dr. Daron Benton MD Status:ADM IN Certification of patient admission REQUIRED AT TIME OF ADMISSION. I CERTIFY THAT POST-HOSPITAL ECF SERVICES ARE REQUIRED TO BE GIVEN ON AN IN-PATIENT BASIS BECAUSE OF THE ABOVE NAMED PATIENT'S NEED FOR RETIREMENT CARE ON A CONTINUING BASIS FOR THE CONDITION(S) FOR WHICH HE/SHE WAS RECEIVING IN-PATIENT HOSPITAL SERVICES PRIOR TO HIS/HER TRANSFER TO THE F. 06/09/25 1622<Electronically signed by Dex Worrell DO> [...] patient, she will need temporary placement in group home facility for short-term skilledservices #9 gastric [...] morphine Adverse Reaction (Verified 06/03/25 02:30) Nausea Zttifww-YDV-MgG Reductase Inhibitor (Oiyuyzy-Vaz-Qci Reductase Inhibitor) Adverse Reaction (Verified 06/03/25 02:30) Nausea Procedures: None Type of Care/Length of Stay Estimated LOS: Convalescent Care Less Than 30 days Type of Care Needed: Skilled Rehab Potential: Fair Prognosis: Fair Additional Orders/Day of Discharge Day of Discharge: 06/09/25 Dietary and Speech Recommendations Dietitian Recommendations/Changes: Continue Regular diet with ymrl-gp-nsrp foods; thin liquids Continue 120ml EPHP TID [...] kcal/mL Liquid 120 ml PO TIDCM Qty: 15222 0RF pantoprazole [Protonix] 40 mg tablet,delayed release [...] Mckeon MD; Dr. Daron Benton MD ~ [facility] Work Phone: 1(241) 603-383307-22-2025 [facility]07-22-2025 Hospital Discharge instructionsAdditional Instructions Consider resuming Eliquis 5 mg bid in two weeks if the patient accepts the risk vs the benefits of the medicine Date of Discharge: 06/09/25[facility] Work Phone: 1(445) 372-627607-21-2025 Progress note Author Dex Worrell [facility] Note Date/Time June 08, 2025 8:13 pm [facility] Medical Records Department [address] [place] [address] Progress Note - Hospitalist 06/08/251943 MR#: [id number] Acct: [id number] Name: ANGÉLICA YO Rep #:[id number] 4 : 1955 69 From: Dex Worrell DO PCP: Dr. Daron Benton MD Status:ADM IN Location: [place] [id number]- [id number] Reason for Visit Chief Complaint: Bilateral [...] 06/03/25 14:52 SB (Rec: 06/03/25 14:52 SB [id number]) Nutrition Malnutrition Evidence of Yes Malnutrition Exists [...] 86.9 H, Lymph % (Auto) 5.5 L, [place] % (Auto) 5.2, Eos % (Auto) 1.4, [...] and left parietal lobes, unchanged. Reading Location: [id number] Chest CT 06/07/25 20:07 IMPRESSION: 1. Interlobular septal thickening with diffuse bronchial wall thickening and consolidation at the posterior lung bases, which may represent some combination of pulmonary edema, atelectasis, and/or infection/inflammation. 2. Moderate right and small left pleural effusions. 3. Enlarged main pulmonary artery suggestive of pulmonary hypertension. 4. Mild thoracic lymphadenopathy is likely reactive. Reading Location: [facility] Physical Exam Const alert and [...] patient, she will need temporary placement in group home facility for short-term skilledservices Total clinical time spent by myself addressing the patient's medical issues, reviewing all of her data, and collaborating with patient's care team: 50 minutes Charges/Coding Visit Charges Inpatient E&M: 94512 Subs Hosp L3 06/08/252012 <Electronically signed by Dex Worrell DO> Cosigner Signature (if applicable): CC: ~ Signed [facility] Work Phone: 1(196) 106-194707-20-2025 Radiology Diagnostic study [facility]07-20-2025 Radiology Diagnostic study [facility]07-20-2025 Discharge summary Author Roman Mckeon [facility] Note Date/Time June 07, 2025 11:0 2am [facility] Medical Records Department [address] [place] [address] Discharge Summary 06/07/25 1052 MR#: [id number] Acct: [id number] Name: ANGÉLICA YO Rep #:[id number] 8 : 1955 69 From: Roman Mckeon MD PCP: Dr. Daron Benton MD Status:ADM IN Location: [place] [address] Providers Date of Admission: 06/03/25 Date of Discharge: 06/07/25 Primary Care Physician: Dr. Daron Benton MD Consultations 06/03/25 08:34 Consult: Gastroenterology Routine Consulting Provider: Adi Gastroenter[facility] [...] ? Requested for PT OT eval and criminal justice social worker to assist with discharge planning. Patient may benefit from going to group home facility Time spent in the patient's [...] 06/03/25 14:52 SB (Rec: 06/03/25 14:52 SB [id number]) Nutrition Malnutrition Evidence of Yes Malnutrition Exists [...] kcal/mL Liquid 120 ml PO TIDCM Qty: 52417 0RF pantoprazole [Protonix] 40 mg tablet,delayed release [...] Health Service Charges/Coding Visit Charges Inpatient E&M: 03045 Disch Hosp >30min 06/07/25 1102 <Electronically signed by Roman Mckeon MD> Cosigner Signature (if applicable): CC: Dr. Roman Mckeon MD; Dr. Daron Benton MD~ Signed [facility] Work Phone: 1(950) 991-323907-20-2025 Progress note Author Roman Mckeon [facility] Note Date/Time June 07, 2025 10:1 4am [facility] Medical Records Department [address] [place] [address] Progress Note - Hospitalist 06/07/25 0907 MR#: [id number] Acct: [id number] Name: ANGÉLICA YO Rep #:[id number] 7 : 1955 69 From: Roman Mckeon MD PCP: Dr. Daron Benton MD Status:ADM IN Location: [place] [address] Reason for Visit Chief Complaint: Bilateral lower [...] 06/03/25 14:52 SB (Rec: 06/03/25 14:52 SB [id number]) Nutrition Malnutrition Evidence of Yes Malnutrition Exists [...] ? Requested for PT OT eval and criminal justice social worker to assist with discharge planning. Patient may benefit from going to group home facility Time spent in the patient's overall evaluation,decision-making process, review of diagnostic data, adjustment of management, discussion with other providers, nursing nursing and ancillary staff involved in patient's care documentation 38 Minutes Charges/Coding Visit Charges Inpatient E&M: 33563 Subs Hosp L2 06/07/25 1014 <Electronically signed by Roman Mckeon MD> Cosigner Signature (if applicable): CC: ~ Signed [facility] Work Phone: 1(443) 324-583907-20-2025 [facility]07-19-2025 Progress note Author Roman Mckeon [facility] Note Date/Time June 06, 2025 12:1 5pm [facility] Medical Records Department [address] [address] Progress Note - Hospitalist 06/06/25 1208 MR#: [id number] Acct: [id number] Name: ANGÉLICA YO Rep #:[id number] 6 : 1955 69 From: Roman Mckeon MD PCP: Dr. Daron Benton MD Status:ADM IN Location: [place] [address] Reason for Visit Chief Complaint: Bilateral lower [...] 06/03/25 14:52 SB (Rec: 06/03/25 14:52 SB [id number]) Nutrition Malnutrition Evidence of Yes Malnutrition Exists [...] % (Auto) 65.3, Lymph % (Auto) 19.0, [place] % (Auto) 10.7 H, Eos % (Auto) [...] 40 Minutes Charges/Coding Visit Charges Inpatient E&M: 99495 Subs Hosp L2 06/06/25 1215 <Electronically signed by Roman Mckeon MD> Cosigner Signature (if applicable): CC: ~ Signed [facility] Work Phone: 1(526) 361-248407-18-2025 Consult note Author Zaki Levin [facility] Note Date/Time June 05, 2025 4:09 pm [facility] Medical Records Department [address] [place] [address] Anesthesia Postop Eval II 06/05/25 1609 MR#: [id number] Acct: [id number] Name: ANGÉLICA YO Rep #:[id number] 2 : 1955 69 From: Zaki Nicholas RNA PCP: Dr. Daron Benton MD Status:ADM IN Y Race: C Location: [place] [address] 4-1 Anesthesia Postop Eval I Sum Postop Eval Completion status Anesthesia document: Postop Eval 1 completed: No Anesthesia Postop Eval I Summary Anesthesia Postop Eval I Summary: Anesthesia Postop Eval I: Assessment Summary Airway patent No 06/05/25 16:05 DINING CAR SERVER.MDOT Spontaneous unlabored No 06/05/25 16:05 DINING CAR SERVER.MDOT respirations Mental status Awake,Calm 06/05/25 16:05 DINING CAR SERVER.MDOT nausea No 06/05/25 16:05 DINING CAR SERVER.MDOT Vomiting No 06/05/25 16:05 DINING CAR SERVER.MDOT Anesthesia Postop Eval I: Fluid Summary Crystalloid volume administer 100 06/05/25 16:05 DINING CAR SERVER.MDOT (ml) Colloids volume administered ( ml) Blood Product volume administered (ml) Total IV fluid infused 100 06/05/25 16:05 DINING CAR SERVER.MDOT Anesthesia Postop Eval I: Summary Notes Anesthesia Complication No 06/05/25 16:05 DINING CAR SERVER.MDFATIMAH Anesthesia Complication Comment: Post-operative progress note Anesthesia: Postop Eval II Evaluation Mental status: Awake and Calm Pain Level: 0 nausea: No Vomiting: No Complications Anesthesia Complication: No 06/05/25 1609 <Electronically signed by Zaki Levin CRNA> Date _ Zaki Levin CRNA Cosigner Signature: Date CC: ~ Signed [facility] Work Phone: 1(158) 176-174707-18-2025 Consult note Author Zaki Levin [facility] Note Date/Time June 05, 2025 4:05 pm [facility] Medical Records Department [address] [facility] [place] [address] Anesthesia Postop Eval I 06/05/25 1605 MR#: [id number] Acct: [id number] Name: ANGÉLICA YO Rep #:[id number] 7 : 1955 69 From: Zaki JOINER PCP: Dr. Daron Benton MD Status:ADM IN Y Race: C Location: [address] Anesthesia: Postop Eval I Current Vital [...] document: Postop Eval 1 completed: No 06/05/25 1604 <Electronically signed by Zaki Levin CRNA> Date _ Zaki Levin CRNA Cosigner Signature: Date CC: ~ Signed [facility] Work Phone: 1(413) 334-425007-18-2025 Consult note Author Zaki [facility] Note Date/Time June 05, 2025 3:50 pm [facility] Medical Records Department [address] [place] [address] Pre-Anesthesia Evaluation 06/05/25 1549 MR#: [id number] Acct: [id number] Name: ANGÉLICA YO Rep #:[id number] 0 : 1955 69 From: Zaki JOINER PCP: Dr. 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: 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 Hx Hospitalization No 04/15/21 11:49 Any Problems [...] take am of surgery PONV PONV - motor block mechanic: PONV - motor block mechanic Female HX of Motion Sickness HX of N/V After Surgery Non-Smoker Duration of Surgery greater than 60 minutes Number of Risk Factors PONV Score Height & Weight Height & Weight: Anesthesia: Height & Weight Height 5 ft 5 in 06/03/25 23:06 Weight: 47 kg 06/05/25 05:10 Body Mass Index (BMI) 17.2 06/05/25 05:10 Respiratory Assessment Respiratory Assessment - motor block mechanic: Respiratory Tract Infection Hx - motor block mechanic Hx Respiratory Tract Infection No 06/03/25 23:05 STOP Sleep Apnea STOP Sleep Apnea - motor block mechanic: STOP Sleep Apnea - motor block mechanic Hx Hypertension Yes 06/03/25 08:49 Hx Sleep [...] Tobacco Use History Tobacco Use 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: Tobacco Use 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 Tobacco Use Smoking Status Current every day smoker 06/04/25 14:35 Hx Tobacco Use Yes 06/03/25 08:49 Years Smoking 30 06/03/25 08:49 Packs Smoked per Day 0.5 06/03/25 08:49 Smoking Cessation Date was within the last 15 years Hx Smoking Cessation Date Hx Smoking Cessation No 06/03/25 08:49 Counseling Hematologic Medial History Hematologic Hx - motor block mechanic: Hematologic Medical Hx - health promoter Hx of Blood Transfusion Yes 06/03/25 08:49 [...] confused, unrespo /Reproduction History /Reproductive 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: /Reproductive Hx- motor block mechanic Hx Now No 06/03/25 23:05 Gestational Age [...] mls/hr 06/03/25 08:54 06/05/25 13:12 IV Infused .[id number] PRN Infusion Saline Flush Sodium Chloride 250 mls @ 15 mls/hr 06/03/25 08:54 IV .[id number] PRN Additional IVPB Infusion Sodium Chloride 250 mls @ 15 mls/hr 06/04/25 15:58 IV .X48Y95D PRN Saline Flush Sodium Chloride 250 mls @ 15 mls/hr 06/04/25 15:58 IV .F54K00B PRN Additional IVPB Infusion Sodium Chloride 250 mls @ 15 mls/hr 06/05/25 08:29 IV .[id number] PRN Saline Flush Sodium Chloride 250 mls @ 15 mls/hr 06/05/25 08:29 IV .Q89R61Y PRN Additional IVPB Infusion Lactated Ringer's 1,000 [...] 120 Ml Liquid PO Not Given TIDCM [facility] Ondansetron HCl 4 mg 06/03/25 08:34 06/04/25 08:38 Ondansetron 4 Mg/2 Ml Vial IV 4 mg Q8H PRN PRN Administration NAUSEA/VOMITING Oxycodone HCl 5 mg 06/03/25 08:34 06/03/25 22:44 Oxycodone 5 Mg Tablet PO 5 mg Q4H PRN PRN Administration Pain Score 4-10 Polysaccharide Iron Complex 150 mg 06/03/25 10:00 06/05/25 08:30 Iron Polysaccharide Complex 150 Mg Capsule PO Not Given DAILY [facility] Potassium Chloride 20 meq 06/03/25 10:00 06/05/25 08:31 Potassium Chloride Oral Soln 20 Meq/15 Ml Udc PO Not Given DAILY [facility] Sodium Chloride 10 - 40 ml 06/03/25 [...] (dyspnea on exertion) Atherosclerotic heart disease of [place] coronary artery without angina pectoris Cardiac murmur [...] Nausea/Vom/ Verified 06/03/25 02:30 Diarrhea aspirin AdvReac "I'M ON Verified 06/03/25 02:30 BLOOD THINNERS" codeine AdvReac Nausea Verified 06/03/25 02:30 Corticosteroids AdvReac Upset Verified 06/03/25 02:30 (Glucocorticoids) Stomach morphine AdvReac Nausea Verified 06/03/25 02:30 Dzvnlpg-ESI-IlJ Reductase AdvReac Nausea Verified 06/03/25 02:30 Inhibitor (Ssmasaa-Wrv-Ceg Reductase Inhibitor) Family History Mother Cancer CAD [...] CRNA Cosigner Signature: Date CC: ~ Signed [facility] Work Phone: 1(349) 602-780907-18-2025 Progress note Author Kevin Gonzalez [facility] Note Date/Time June 05, 2025 3:14 pm [facility] Medical Records Department [address] [place] [address] Progress Note 06/05/251511 MR#: [id number] Acct: [id number] Name: ANGÉLICA YO Rep #:[id number] 2 : 1955 69 From: Kevin Gonzalez DO PCP: Dr. Daron Benton MD Status:ADM IN Location: [place] [address] Progress Note Patient has been n.p.o. for [...] ASA of 3. Visit Charges Inpatient E&M: 26415 Subs Hosp L2 06/05/25 1514 <Electronically signed by Kevin Gonzalez DO> Kevin Friend DO Cosigner Signature (if applicable): CC: ~ Signed [facility] Work Phone: [phone]) 605-300907-18-2025 Procedure [facility] 06-05-2025 Procedure [facility]07-18-2025 Progress note Author Roman Mckeon [facility] Note Date/Time June 05, 2025 11:3 1am [facility] Medical Records Department [address] [place] [address] Progress Note - Hospitalist 06/05/25 0749 MR#: [id number] Acct: [id number] Name: ANGÉLICA YO Rep #:[id number] 4 : 1955 69 From: Roman Mckeon MD PCP: Dr. Daron Benton MD Status:ADM IN Location: [place] [address] Reason for Visit Chief Complaint: Bilateral lower [...] 06/03/25 14:52 SB (Rec: 06/03/25 14:52 SB [id number]) Nutrition Malnutrition Evidence of Yes Malnutrition Exists [...] 76.6 H, Lymph % (Auto) 9.9 L, [place] % (Auto) 10.1 H, Eos % (Auto) [...] and ancillary staff involved in patient's care [id number] Minutes Charges/Coding Visit Charges Inpatient E&M: 48375 Subs Hosp L3 06/05/25 1131 <Electronically signed by Roman Mckeon MD> Cosigner Signature (if applicable): CC: ~ Signed [facility] Work Phone: 1(376) 828-343107-17-2025 Progress note Author Kevin Gonzalez [facility] Note Date/Time June 04, 2025 5:47 pm [facility] Medical Records Department [address] [place] [address] Progress Note 06/04/25 1746 MR#: [id number] Acct: [id number] Name: ANGÉLICA YO Rep #:[id number] 5 : 1955 69 From: Kevin Gonzalez DO PCP: Dr. Daron Benton MD Status:ADM IN Location: [place] [address]- Progress Note Patient was supposed to get [...] n.p.o. past midnight. Visit Charges Inpatient E&M: 90205 Init Hosp L3 06/04/251746 <Electronically signed by Kevin Gonzalez DO> Kevin Gonzalez DO Cosigner Signature (if applicable): CC: ~ Signed ADDENDUM by Kevin Gonzalez DO on 06/04/25 at 1747 Visit Charges Inpatient E&M: 66897 [facility] L3 06/04/251746 <Electronically signed by Kevin llanos DO> Date _ Kevin Gonzalez DO Cosstephyer Signature (if applicable): Date cc: ~* Signed [facility] Work Phone: 1(866) 742-621607-17-2025 Progress note Author Roman Mckeon [facility] Note Date/Time June 04, 2025 8:38 am [facility] Medical Records Department [address] [place] [address] Progress Note - Hospitalist 06/04/25 0834 MR#: [id number] Acct: [id number] Name: ANGÉLICA YO Rep #:[id number] 3 : 1955 69 From: Roman Mckeon MD PCP: Dr. Daron Benton MD Status:ADM IN Location: [place] [address] Reason for Visit Chief Complaint: Bilateral lower [...] 06/03/25 14:52 SB (Rec: 06/03/25 14:52 SB [id number]) Nutrition Malnutrition Evidence of Yes Malnutrition Exists [...] % (Auto) 68.8, Lymph % (Auto)14.1 L, [place] % (Auto) 12.9 H, Eos % (Auto) [...] and ancillary staff involved in patient's care [id number] Minutes Charges/Coding Visit Charges Inpatient E&M: 04517 Subs Hosp L3 06/04/25 0838 <Electronically signed by Roman Mckeon MD> Cosigner Signature (if applicable): CC: ~ Signed [facility] Work Phone: 1(858) 424-175607-16-2025 Consult note Author Kevin Gonzalez [facility] Note Date/Time June 03, 2025 4:15 pm [facility] Medical Records Department [address] [place] [address] Consultation - GI 06/03/25 1609 MR#: [id number] Acct: [id number] Name: ANGÉLICA YO Rep #:[id number] 7 : 1955 69 From: Kevin Gonzalez DO PCP: Dr. Daron Benton MD Status:ADM IN Location: [place] [address] HPI Consult Data Date of Consult: 06/03/25 [...] history of CAD and carotid artery disease. [facility] Medical History Hypertensive emergency NSTEMI, initial [...] (dyspnea on exertion) Atherosclerotic heart disease of [place] coronary artery without angina pectoris Cardiac murmur [...] Nausea/Vom/ Verified 06/03/25 02:30 Diarrhea aspirin AdvReac "I'M ON Verified 06/03/25 02:30 BLOOD THINNERS" codeine AdvReac Nausea Verified 06/03/25 02:30 Corticosteroids AdvReac Upset Verified 06/03/25 02:30 (Glucocorticoids) Stomach morphine AdvReac Nausea Verified 06/03/25 02:30 Xvuijda-ZLI-ZmO Reductase AdvReac Nausea Verified 06/03/25 02:30 Inhibitor (Zptpjzl-Hod-Hjp Reductase Inhibitor) Family History Mother Cancer CAD [...] 06/03/25 14:52 SB (Rec: 06/03/25 14:52 SB [id number]) Nutrition Malnutrition Evidence of Yes Malnutrition Exists [...] (Auto) 69.4, Lymph % (Auto) 13.4 L, [place] % (Auto) 14.0 H, Eos % (Auto) [...] 03:20 IMPRESSION: Small right effusion. Reading Location: [place] [address] Assessment & Plan Assessment/Plan (1) Symptomatic anemia: [...] applicable): CC: Dr. Daron Benton MD~ Signed [facility] Work Phone: 1(237) 307-629107-16-2025 History and physical note Author Roman Mckeon [facility] Note Date/Time June 03, 2025 9:34 am [facility] Medical Records Department [address] [place] [address] H&P Exam - Hospitalist 06/03/25 0739 MR#: [id number] Acct: [id number] Name: ANGÉLICA YO Rep #:[id number] 3 : 1955 69 From: Roman Mckeon MD PCP: Dr. Daron Benton MD Status:ADM IN Location: [facility] [id number]- 1 HPI - General General Date of [...] to a monitored bed for further manage [facility] Medical History (Updated 06/03/25 @ 09:01 [...] (dyspnea on exertion) Atherosclerotic heart disease of [place] coronary artery without angina pectoris Cardiac murmur [...] Nausea/Vom/ Verified 06/03/25 02:30 Diarrhea aspirin AdvReac "I'M ON Verified 06/03/25 02:30 BLOOD THINNERS" codeine AdvReac Nausea Verified 06/03/25 02:30 Corticosteroids AdvReac Upset Verified 06/03/25 02:30 (Glucocorticoids) Stomach morphine AdvReac Nausea Verified 06/03/25 02:30 Ocsjqyt-NGB-RrT Reductase AdvReac Nausea Verified 06/03/25 02:30 Inhibitor (Ypcacch-Thx-Cgp Reductase Inhibitor) Family History Mother Cancer CAD [...] (Auto) 69.4, Lymph % (Auto) 13.4 L, [place] % (Auto) 14.0 H, Eos % (Auto) [...] 03:20 IMPRESSION: Small right effusion. Reading Location: [facility] Assessment & Plan Assessment/Plan (1) Anemia: (2) [...] Multi Select Codes Visit Charges Visit Charges: 98021 Init Hosp L3 Hospitalists' Procedures Procedures: 72335 Advncd Care Plan 30 Min 06/03/25 0934 <Electronically signed by Roman Mckeon MD> Cosigner Signature (if applicable): CC: Dr. Roman Mckeon MD; Dr. Daron Benton MD~ Signed [facility] Work Phone: 1(875) 450-513507-16-2025 Discharge summary Author Yasmani Haynes [facility] Note Date/Time June 03, 2025 7:47 am [facility] Medical Records Department [address] [place] [address] Emergency Department Summary 06/03/25 MR#: [id number] Acct: [id number] Name: ANGÉLICA YO Rep #:[id number] 3 : 1955 69 From: Yasmani Haynes [...] the persistent pain comes in for evaluation. [facility] Medical History Hypertensive emergency NSTEMI, initial episode of care Emphysema of lung Smoking greater than 30 pack years New onset atrial fibrillation [place] (dyspnea on exertion) Atherosclerotic heart disease of [place] coronary artery without angina pectoris Cardiac murmur [...] Nausea/Vom/ Verified 06/03/25 02:30 Diarrhea aspirin AdvReac "I'M ON Verified 06/03/25 02:30 BLOOD THINNERS" codeine AdvReac Nausea Verified 06/03/25 02:30 Corticosteroids AdvReac Upset Verified 06/03/25 02:30 (Glucocorticoids) Stomach morphine AdvReac Nausea Verified 06/03/25 02:30 Ijupfsc-VGZ-KtU Reductase AdvReac Nausea Verified 06/03/25 02:30 Inhibitor (Mxsehpd-Hmb-Mne Reductase Inhibitor) Family History Mother Cancer CAD [...] of blood. The case was discussed with fishing hand/Dr. Gonzalez. He states that with her anemia [...] (Auto) 69.4 Lymph % (Auto) 13.4 L [place] % (Auto) 14.0 H Eos % (Auto) [...] 03:20 IMPRESSION: Small right effusion. 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 Call [facility] ([phone]) or report to the closest Emergency Room. Call 911 if necessary. 06/03/25 0747 <Electronically signed by Yasmani Haynes DO> Cosigner Signature (if applicable): CC: Dr. Daron Benton MD ~ Signed [facility] Work Phone: 1(847) 990-627907-16-2025 Evaluation note* Diagnosis Onset Date Resolution Status Admit Date Anemia acute June 03 7:37am DDD (degenerative disc disease), lumbosacral acute June 03, 2025 7:37am Congestive heart failure resolved June 03, 2025 7:37am Symptomatic anemia resolved May 192024 7:37am Essential hypertension acute Se pt2024 12:46pm Mitral stenosis acute August 05, 2025 12:46pm Paroxysmal atrial fibrillation acute August 05, 2025 12:46pm Bilateral carotid artery stenosis chronic August 05, 2025 12:46pm HLD (hyperlipidemia) chronic Jul 12:46pm Nonobstructive atheroscleros is of coronary artery chronic July 12:46pm Chest pressure inactive August 05, 2025 12:46pm Closed head injury acute 2024 11:34pm Fall acute July 11:34pm CHRISTOPHER (acute kidney injury) resolved August 08, 2025 11:34pm Altered mental status resolved Jul 11:34pm Dehydration resolved July 11:34pm Nausea and vomiting resolved 2024 11:34pm Head injury inactive July 11:34pm [facility] Work Phone: 1(393) 236-728507-16-2025 Radiology Diagnostic study [facility]06-27-2025 Radiology Diagnostic study [facility]06-18-2025 Telephone encounter Note* Telephone Encounter - Maeve [place] - 05/06/2025 1:48 PM EDT Faxed New Auth to [facility] @ [phone], Valid 05/06/25 Thru 07/05/25 Brain MRI wo Contrast. [id number] Miscellaneous Notes* Telephone Encounter - Maeve [place] - 05/06/2025 1:48 PM EDT Faxed New Auth to [facility] @ [phone], Valid 05/06/25 Thru 07/05/25 Brain MRI wo Contrast. * Telephone Encounter - Madelin Olvera - 05/05/2025 2:39 PM EDT [facility] Contact phone number: [phone] Relationship to Patient: Imaging Provider: Lynn Practice: neuro Chief Complaint/Reason for Call: Viki states patients prior auth is expiring and will need a new one for patient schedule MRI on 05/20 @130 fax # [phone]. documented in this encounterSClinton Memorial HospitalOnuhqu45-88-7486 Telephone encounter Note* Telephone Encounter - Madelin Olvera - 05/05/2025 2:39 PM EDT [facility] Contact phone number: [phone] Relationship to Patient: Imaging Provider: Robert Practice: neuro Chief Complaint/Reason for Call: Viki states patients prior auth is expiring and will need a new one for patient schedule MRI on 05/20 @130 fax # [phone]. [id number] Telephone encounter Note* Telephone Encounter - ANTWON Harrington CNP - 04/24/2025 1:24 PM EDT Baclofen 20mg sent to Sp in [place]. [facility]Zzbvoh39-63-2293 Miscellaneous Notes* Telephone Encounter - ANTWON Harrington CNP - 04/24/2025 1:24 PM EDT Baclofen 20mg sent to Sp in [place]. * Telephone Encounter - Jeni Crook - 04/24/2025 12:21 PM EDT Name of caller: Angélica Contact phone number: [phone] Relationship to Patient: patient Provider: AURORA Lynn Practice: Neurology Chief Complaint/Reason for Call: Angélica advised that she just got out of the hospital, and she needsher Baclofen script sent in to her [facility] - [place], [place] - [address] [[id number]]. She does not use the [facility] any longer, and she is completely out. Best time of day caller can be reached: any Patient advised that office/PCP has 24-48 business hours to return their call: Yes documented in this encounterSClinton Memorial HospitalSytncq06-64-2785 Telephone encounter Note* Telephone Encounter - Jeni Crook - 04/24/2025 12:21 PM EDT Name of caller: Angélica Contact phone number: [phone] Relationship to Patient: patient Provider: AURORA Lynn Practice: Neurology Chief Complaint/Reason for Call: Angélica advised that she just got out of the hospital, and she needsher Baclofen script sent in to her [facility] - [place], [place] - [address] [[id number]]. She does not use the [facility] any longer, and she is completely out. Best time of day caller can be reached: any Patient advised that office/PCP has 24-48 business hours to return their call: Yes [facility] HospitalJfoyjx42-42-3371 Discharge summary Author Roman Mckeon [facility] Note Date/Time April 22, 2025 2:21p [facility] Medical Records Department [address] [facility] [place] [address] Discharge Summary 04/22/25 1411 MR#: [id number] Acct: [id number] Name: ANGÉLICA YO Rep #:[id number] 9 : 1955 69 From: Roman Mckeon MD PCP: Dr. Daron Benton MD Status:ADM IN Location: [facility] DQ101-5 Providers Date of Admission: 04/18/25 Primary Care Physician: Dr. Daron Benton MD Consultations 04/19/25 08:12 Consult: Gastroenterology Routine Consulting Provider: [facility] Reason for Consult: GI Bleed EMERGENT [...] Health Service Charges/Coding Visit Charges Inpatient E&M: 06843 Disch Hosp >30min 04/22/25 1421 <Electronically signed by Roman Mckeon MD> Cosigner Signature (if applicable): CC: Dr. Roman Mckeon MD; Dr. Daron Benton MD~ Signed [facility] Work Phone: 1(205) 954-838406-04-2025 Consult note Author Benjamin Cm [facility] Note Date/Time April 22, 2025 1:30p [facility] Medical Records Department [address] [place] [address] Anesthesia Postop Eval I 04/22/25 1329 MR#: [id number] Acct: [id number] Name: ANGÉLICA YO Rep #:[id number] 3 : 1955 69 From: Benjamin Cm PCP: Dr. Daron Benton MD Status:ADM IN Y Race: C Location: PR3 MS305 -1 Anesthesia: Postop Eval I Current [...] by Benjamin Cm > Date _ Benjamin Vanegasigner Signature: Date CC: ~ Signed [facility] Work Phone: 1(288) 828-549106-04-2025 Progress note Author Kevin Friend [facility] Note Date/Time April 22, 2025 12:31 pm [facility] Medical Records Department [address] [place] [address] Progress Note 04/22/25 1230 MR#: [id number] Acct: [id number] Name: ANGÉLICA YO Rep #:[id number] 2 : 1955 69 From: Kevin Gonzalez DO PCP: Dr. Daron Benton MD Status:ADM IN Location: [place] [address] Progress Note The patient underwent NG tube [...] ASA of 3. Visit Charges Inpatient E&M: 38588 Subs Hosp L2 04/22/25 1231 <Electronically signed by Kevin Gonzalez DO> Kevin Gonzalez DO Cosigner Signature (if applicable): CC: ~ Signed [facility] Work Phone: 1(468) 398-948206-04-2025 [facility]06-04-2025 Procedure [facility]06-04-2025 Procedure [facility]06-04-2025 Consult note Author Aime Covarrubias [facility] Note Date/Time April 22, 2025 11:17 am [facility] Medical Records Department [address] [place] [address] Pre-Anesthesia Evaluation 04/22/25 1116 MR#: [id number] Acct: [id number] Name: ANGÉLICA YO Rep #:[id number] 4 : 1955 69 From: Aime Covarrubias MD PCP: Dr. 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: 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 Hx Hospitalization No 04/15/21 11:49 Any Problems [...] take am of surgery PONV PONV - motor block mechanic: PONV - motor block mechanic Female HX of Motion Sickness HX of N/V After Surgery Non-Smoker Duration of Surgery greater than 60 minutes Number of Risk Factors PONV Score Height & Weight Height & Weight: Anesthesia: Height & Weight Height 5 ft 5 in 04/21/25 15:30 Weight: 45.7 kg 04/21/25 15:30 Body Mass Index (BMI) 16.7 04/21/25 15:30 Respiratory Assessment Respiratory Assessment - motor block mechanic: Respiratory Tract Infection Hx - motor block mechanic Hx Respiratory Tract Infection No 02/24/24 23:50 STOP Sleep Apnea STOP Sleep Apnea - motor block mechanic: STOP Sleep Apnea - motor block mechanic Hx Hypertension Yes 04/18/25 21:53 Hx Sleep [...] Tobacco Use History Tobacco Use 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: Tobacco Use 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 Tobacco Use Smoking Status Light Smoker (<10/day) 04/20/25 21:39 Hx Tobacco Use Yes 04/18/25 21:53 Years Smoking Packs Smoked per Day Smoking Cessation Date was within the last 15 years Hx Smoking Cessation Date Hx Smoking Cessation No 04/18/25 21:53 Counseling Hematologic Medial History Hematologic Hx - motor block mechanic: Hematologic Medical Hx - health promoter Hx of Blood Transfusion Yes 04/18/25 21:53 [...] confused, unrespo /Reproduction History /Reproductive 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: /Reproductive Hx- motor block mechanic Hx Now Gestational Age (in weeks): EDC: [...] Capsule (5,000 Units) PO Not Given DAILY [facility] Docusate Sodium 100 mg 04/18/25 22:00 04/22/25 07:18 Docusate Sodium 100 Mg Capsule PO Not Given BID [facility] Gabapentin 800 mg 04/18/25 22:00 04/22/25 05:13 Gabapentin 800 Mg Tablet PO Not Given TID [facility] Guaifenesin 1 tablet 04/19/25 07:31 Guaifenesin/D-Methorphan Tab.Sr.12h PO Q12H PRN cough/congest Hydromorphone HCl 0.5 - 1 mg 04/19/25 07:19 04/21/25 05:35 Hydromorphone 1 Mg/Ml Syringe IV 0.5 mg Q3H PRN PRN Administration Pain Score 6-10 Sodium Chloride 250 mls @ 15 mls/hr 04/18/25 21:41 IV .[id number] PRN Saline Flush Sodium Chloride 250 mls @ 15 mls/hr 04/18/25 21:41 IV .[id number] PRN Additional IVPB Infusion Pantoprazole Sodium 40 mg/ 100 mls @ 330 mls/hr 04/18/25 21:57 04/22/25 09:55 Sodium Chloride IV 330 mls/hr Q24 VIMAL Administration Lactated Ringer's 1,000 mls @ 15 mls/hr 04/20/25 13:00 04/21/25 15:37 IV 15 mls/hr .Q48H VIMAL Administration Lactated Ringer's 1,000 mls @ 15 mls/hr 04/22/25 11:15 IV .Q48H [facility] Ipratropium [place] 2 spray 04/19/25 07:17 Ipratropium [place] 0.06% Nasal [place] NASAL TID PRN allergy symptoms Levothyroxine Sodium 50 mcg 04/19/25 06:00 04/22/25 05:14 Levothyroxine 50 Mcg Tablet PO Not Given DAILY@0600 [facility] Nutritional Formula (Lactose Free) 120 ml 04/19/25 08:00 04/22/25 07:18 Ensure Clear 120 Ml Liquid PO Not Given TIDCM [facility] Oxycodone HCl 10 mg 04/19/25 07:19 04/22/25 [...] (dyspnea on exertion) Atherosclerotic heart disease of [place] coronary artery without angina pectoris Cardiac murmur [...] Nausea/Vom/ Verified 04/18/25 18:19 Diarrhea aspirin AdvReac "I'M ON Verified 04/18/25 18:19 BLOOD THINNERS" codeine AdvReac Nausea Verified 04/18/25 18:19 Corticosteroids AdvReac Upset Verified 04/18/25 18:19 (Glucocorticoids) Stomach morphine AdvReac Nausea Verified 04/18/25 18:19 Ehdssgs-BNK-OkP Reductase AdvReac Nausea Verified 04/18/25 18:19 Inhibitor (Mbwdxwf-Xoe-Zpc Reductase Inhibitor) Family History Mother Cancer CAD [...] Aime Peterson Signature: Date CC: ~ Signed [facility] Work Phone: 1(804) 999-427106-04-2025 Progress note Author Roman Mckeon [facility] Note Date/Time April 22, 2025 8:32a [facility] Medical Records Department [address] [place] [address] Progress Note - Hospitalist 04/22/25712 MR#: [id number] Acct: [id number] Name: ANGÉLICA YO Rep #:[id number] 0 : 1955 69 From: Roman Mckeon MD PCP: Dr. Daron Benton MD Status:ADM IN Location: [place] [address] Reason for Visit Reason for Visit: Diagnoses [...] pain regimen Charges/Coding Visit Charges Inpatient E&M: 59450 Subs Hosp L2 04/22/25 0832 <Electronically signed by Roman Mckeon MD> Cosigner Signature (if applicable): CC: ~ Signed [facility] Work Phone: 1(441) 700-487806-03-2025 Consult note Author Zaki Levin [facility] Note Date/Time April 21, 2025 5:01p m [facility] Medical Records Department [address] [place] [address] Anesthesia Postop Eval II 04/21/25 1700 MR#: [id number] Acct: [id number] Name: ANGÉLICA YO Rep #:[id number] 2 : 1955 69 From: Zaki Nicholas RNA PCP: Dr. Daron Benton MD Status:ADM IN Y Race: C Location: MS3 MS305 -1 Anesthesia Postop Eval I Sum Postop Eval Completion status Anesthesia document: Postop Eval 1 completed: Yes Anesthesia Postop Eval I Summary Anesthesia Postop Eval I Summary: Anesthesia Postop Eval I: Assessment Summary Airway patent Yes 04/21/25 16:57 [employer]INING CAR [employer].MDOT Spontaneous unlabored Yes 04/21/25 16:57 [employer]ING [employer].MDOT respirations Mental status Awake,Calm 04/21/25 16:57 [employer]ING [employer].MDOT nausea No 04/21/25 16:57 [employer]ING CAR [employer]ER.MDOT Vomiting No 04/21/25 16:57 DINING CAR [employer]ER.MDOT Anesthesia Postop Eval I: Fluid Summary Crystalloid volume administer 100 04/21/25 16:57 DINING CAR SERVER.MDOT (ml) Colloids volume administered ( ml) Blood Product volume administered (ml) Total IV fluid infused 100 04/21/25 16:57 DINING CAR SERVER.MDFATIMAH Anesthesia Postop Eval I: Summary Notes Anesthesia Complication No 04/21/25 16:57 DINING CAR [employer]ER.MDOT Anesthesia Complication Comment: Post-operative progress note Anesthesia: Postop Eval II Evaluation Mental status: Awake and Calm Pain Level: 0 nausea: No Vomiting: No Complications Anesthesia Complication: No 04/21/25 1701 <Electronically signed by Zaki Levin CRNA> Date _ Zaki Levin CRNA Cosigner Signature: Date CC: ~ Signed [facility] Work Phone: 1(549) 598-610206-03-2025 Consult note Author Zaki Levin [facility] Note Date/Time April 21, 2025 4:57p [facility] Medical Records Department [address] [place] [address] Anesthesia Postop Eval I 04/21/25 1656 MR#: [id number] Acct: [id number] Name: ANGÉLICA YO Rep #:[id number] 8 : 1955 69 From: Zaki JOINER PCP: Dr. Daron Benton MD Status:ADM IN Y Race: C Location: [place] [address] Anesthesia: Postop Eval I Current Vital Signs [...] CRNA Cosigner Signature: Date CC: ~ Signed [facility] Work Phone: 1(596) 336-301506-03-2025 Progress note Author Kevin Gonzalez [facility] Note Date/Time April 21, 2025 4:16p m [facility] Medical Records Department [address] [place] [address] Progress Note 04/21/25 1615 MR#: [id number] Acct: [id number] Name: ANGÉLICA YO Rep #:[id number] 8 : 1955 69 From: Kevin Gonzalez DO PCP: Dr. Daron Benton MD Status:ADM IN Location: [place] [address] Progress Note Patient is n.p.o. for EGD [...] prep is complete. Visit Charges Inpatient E&M: 72020 Subs Hosp L3 04/21/25 1616 <Electronically signed by Kevin Gonzalez DO> Kevin Gonzalez DO Cosigner Signature (if applicable): CC: ~ Signed [facility] Work Phone: 1(868) 983-191606-03-2025 Consult note Author Storm Gómez [facility] Note Date/Time April 21, 2025 3:54p m [facility] Medical Records Department [address] [place] [address] Pre-Anesthesia Evaluation 04/21/25 1549 MR#: [id number] Acct: [id number] Name: ANGÉLICA YO Rep #:[id number] 7 : 1955 69 From: Storm Gómez MD PCP: Dr. Daron Benton MD Status:ADM IN Y Race: C Location: [place] [address] -1 ASA Classification* ASA Classification ASA Classification: [...] Procedure(s): EGD 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: 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 Hx Hospitalization No 04/15/21 11:49 Any Problems [...] take am of surgery PONV PONV - motor block mechanic: PONV - motor block mechanic Female HX of Motion Sickness HX of N/V After Surgery Non-Smoker Duration of Surgery greater than 60 minutes Number of Risk Factors PONV Score Height & Weight Height & Weight: Anesthesia: Height & Weight Height 5 ft 5 in 04/21/25 15:30 Weight: 45.7 kg 04/21/25 15:30 Body Mass Index (BMI) 16.7 04/21/25 15:30 Respiratory Assessment Respiratory Assessment - motor block mechanic: Respiratory Tract Infection Hx - motor block mechanic Hx Respiratory Tract Infection No 02/24/24 23:50 STOP Sleep Apnea STOP Sleep Apnea - motor block mechanic: STOP Sleep Apnea - motor block mechanic Hx Hypertension Yes 04/18/25 21:53 Hx Sleep [...] Tobacco Use History Tobacco Use 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: Tobacco Use 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 Tobacco Use Smoking Status Light Smoker (<10/day) 04/20/25 21:39 Hx Tobacco Use Yes 04/18/25 21:53 Years Smoking Packs Smoked per Day Smoking Cessation Date was within the last 15 years Hx Smoking Cessation Date Hx Smoking Cessation No 04/18/25 21:53 Counseling Hematologic Medial History Hematologic Hx - motor block mechanic: Hematologic Medical Hx - health promoter Hx of Blood Transfusion Yes 04/18/25 21:53 [...] confused, unrespo /Reproduction History /Reproductive 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: /Reproductive Hx- motor block mechanic Hx Now Gestational Age (in weeks): EDC: [...] mls @ 15 mls/hr 04/18/25 21:41 IV .[id number] PRN Saline Flush Sodium Chloride 250 mls @ 15 mls/hr 04/18/25 21:41 IV .I03Y39G PRN Additional IVPB Infusion Pantoprazole Sodium 40 mg/ 100 mls @ 330 mls/hr 04/18/25 21:57 04/21/25 10:40 Sodium Chloride IV Infused Q24 VIMAL Infusion Lactated Ringer's 1,000 mls @ 15 mls/hr 04/20/25 13:00 04/21/25 15:37 IV 15 mls/hr .Q48H VIMAL Administration Ipratropium [place] 2 spray 04/19/25 07:17 Ipratropium [place] 0.06% Nasal [place] NASAL TID PRN allergy symptoms Levothyroxine Sodium 50 mcg 04/19/25 06:00 04/21/25 05:56 Levothyroxine 50 Mcg Tablet PO Not Given DAILY@0600 [facility] Nutritional Formula (Lactose Free) 120 ml 04/19/25 08:00 04/21/25 10:20 Ensure Clear 120 Ml Liquid PO Not Given TIDCM [facility] Oxycodone HCl 10 mg 04/19/25 07:19 04/21/25 [...] (dyspnea on exertion) Atherosclerotic heart disease of [place] coronary artery without angina pectoris Cardiac murmur [...] mg tablet,delayed 81 mg PO BREAKFAST heart [facility] 12/11/24 03/19/25 Rx release #30 tabs amlodipine [...] Nausea/Vom/ Verified 04/18/25 18:19 Diarrhea aspirin AdvReac "I'M ON Verified 04/18/25 18:19 BLOOD THINNERS" codeine AdvReac Nausea Verified 04/18/25 18:19 Corticosteroids AdvReac Upset Verified 04/18/25 18:19 (Glucocorticoids) Stomach morphine AdvReac Nausea Verified 04/18/25 18:19 Nutrjqp-XWI-AzI Reductase AdvReac Nausea Verified 04/18/25 18:19 Inhibitor (Flnqood-Uyw-Flf Reductase Inhibitor) Family History Mother Cancer CAD [...] no additional complaints, except as documented. 04/21/25 0029 <Electronically signed by Storm steiner MD> Date _ Storm Gómez MD Cosigner Signature: Date CC: ~ Signed [facility] Work Phone: 1(366) 346-696406-03-2025 Procedure [facility] 04-21-2025 Procedure [facility]06-03-2025 Progress note Author Roman Mckeon [facility] Note Date/Time April 21, 2025 8:22a m [facility] Medical Records Department [address] [place] [address] Progress Note - Hospitalist 04/21/25 0727 MR#: [id number] Acct: [id number] Name: ANGÉLICA YO Rep #:[id number] 2 : 1955 69 From: Roman Mckeon MD PCP: Dr. Daron Benton MD Status:ADM IN Location: PR3 AU474-7 Reason for Visit Reason for Visit: Diagnoses [...] evidence for acute brain abnormality. Reading Location: [place] [address] Physical Exam Narrative GENERAL: cooperative HEENT: Atraumatic; [...] pain regimen Charges/Coding Visit Charges Inpatient E&M: 46245 Subs Hosp L2 04/21/25 0822 <Electronically signed by Roman Mckeon MD> Cosigner Signature (if applicable): CC: ~ Signed [facility] Work Phone: 1(127) 956-440606-03-2025 Progress note Author Sommer Resendiz [facility] Note Date/Time April 21, 2025 1:33a m [facility] Medical Records Department [address] [place] [address] Progress Note - Hospitalist 04/21/2540 MR#: [id number] Acct: [id number] Name: ANGÉLICA YO Rep #:[id number] 3 : 1955 69 From: Sommer Resendiz MD PCP: Dr. Daron Benton MD Status:ADM IN Location: [facility] SL795-7 Hospitalist Note Patient with unwitnessed mechanical fall, [...] Cosigner Signature (if applicable): cc: ~* Signed [facility] Work Phone: 1(158) 252-302406-03-2025 Radiology Diagnostic study [facility]06-02-2025 Consult note Author Aime Covarrubias [facility] Note Date/Time April 20, 2025 4:08p m [facility] Medical Records Department [address] [place] [address] Anesthesia Postop Eval II 04/20/25 1608 MR#: [id number] Acct: [id number] Name: ANGÉLICA OY Rep #:[id number] 0 : 1955 69 From: Aime Covarrubias MD PCP: Dr. Daron Benton MD Status:ADM IN Y Race: C Location: [facility] MS305 -1 Anesthesia Postop Eval I Sum Postop Eval Completion status Anesthesia document: Postop Eval 1 completed: Yes Anesthesia Postop Eval I Summary Anesthesia Postop Eval I Summary: Anesthesia Postop Eval I: Assessment Summary Airway patent Yes 04/20/25 13:53 DINING CAR SERVER.JDEF Spontaneous unlabored Yes 04/20/25 13:53 DINING CAR SERVER.JDEF respirations Mental status Awake 04/20/25 13:53 DINING CAR SERVER.JDEF nausea No 04/20/25 13:53 DINING CAR SERVER.JDEF Vomiting No 04/20/25 13:53 DINING CAR SERVER.JDEF Anesthesia Postop Eval I: Fluid Summary Crystalloid volume administer 500 04/20/25 13:53 DINING CAR SERVER.JDEF (ml) Colloids volume administered ( ml) Blood Product volume administered (ml) Total IV fluid infused 500 04/20/25 13:53 DINING CAR SERVER.JDEF Anesthesia Postop Eval I: Summary Notes Anesthesia Complication No 04/20/25 13:53 DINING CAR SERVER.JDEF Anesthesia Complication Comment: Post-operative progress note Anesthesia: Postop Eval II Evaluation Mental status: Awake Pain Level: 0 nausea: No Vomiting: No Complications Anesthesia Complication: No 04/20/25 1608 <Electronically signed by Aime Covarrubias MD> Date _ Aime Covarrubias MD Cosigner Signature: Date CC: ~ Signed [facility] Work Phone: 1(311) 751-804606-02-2025 Consult note Author Meliza Rea [facility] Note Date/Time April 20, 2025 1:53p [facility] Medical Records Department [address] [place] [address] Anesthesia Postop Eval I 04/20/25 1352 MR#: [id number] Acct: [id number] Name: ANGÉLICA YO Rep #:[id number] 8 : 1955 69 From: Meliza Rea CRNA PCP: Dr. Daron Benton MD Status:ADM IN Y Race: C Location: [place] [address] Anesthesia: Postop Eval I Current Vital Signs [...] 04/20/25 1353 <Electronically signed by Meliza mansfield DINING CAR SERVER> Date _ Meliza Rea DINING CAR SERVER Cosigner Signature: Date CC: ~ Signed [facility] Work Phone: 1(879) 188-528706-02-2025 Consult note Author Aime Covarrubias [facility] Note Date/Time April 20, 2025 1:21p [facility] Medical Records Department [address] [place] [address] Pre-Anesthesia Evaluation 04/20/25 1313 MR#: [id number] Acct: [id number] Name: ANGÉLICA YO Rep #:[id number] 8 : 1955 69 From: Aime Covarrubias [...] Procedure(s): EGD 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: 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 Hx Hospitalization No 04/15/21 11:49 Any Problems [...] take am of surgery PONV PONV - motor block mechanic: PONV - motor block mechanic Female HX of Motion Sickness HX of N/V After Surgery Non-Smoker Duration of Surgery greater than 60 minutes Number of Risk Factors PONV Score Height & Weight Height & Weight: Anesthesia: Height & Weight Height 5 ft 5 in 04/19/25 10:28 Weight: 45.7 kg 04/19/25 10:28 Body Mass Index (BMI) 16.7 04/18/25 21:50 Respiratory Assessment Respiratory Assessment - motor block mechanic: Respiratory Tract Infection Hx - motor block mechanic Hx Respiratory Tract Infection No 02/24/24 23:50 STOP Sleep Apnea STOP Sleep Apnea - motor block mechanic: STOP Sleep Apnea - motor block mechanic Hx Hypertension Yes 04/18/25 21:53 Hx Sleep [...] Tobacco Use History Tobacco Use 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: Tobacco Use 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 Tobacco Use Smoking Status Light Smoker (<10/day) 04/18/25 21:53 Hx Tobacco Use Yes 04/18/25 21:53 Years Smoking Packs Smoked per Day Smoking Cessation Date was within the last 15 years Hx Smoking Cessation Date Hx Smoking Cessation No 04/18/25 21:53 Counseling Hematologic Medial History Hematologic Hx - motor block mechanic: Hematologic Medical Hx - health promoter Hx of Blood Transfusion Yes 04/18/25 21:53 [...] confused, unrespo /Reproduction History /Reproductive 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: /Reproductive Hx- motor block mechanic Hx Now Gestational Age (in weeks): EDC: [...] mls @ 15 mls/hr 04/18/25 21:41 IV .[id number] PRN Saline Flush Sodium Chloride 250 mls @ 15 mls/hr 04/18/25 21:41 IV .G90L10T PRN Additional IVPB Infusion Pantoprazole Sodium 40 mg/ 100 mls @ 330 mls/hr 04/18/25 21:57 04/20/25 09:59 Sodium Chloride IV 330 mls/hr Q24 VIMAL Administration Lactated Ringer's 1,000 mls @ 15 mls/hr 04/20/25 13:00 04/20/25 12:59 IV 15 mls/hr .Q48H VIMAL Administration Ipratropium [place] 2 spray 04/19/25 07:17 Ipratropium [place] 0.06% Nasal [place] NASAL TID PRN allergy symptoms Levothyroxine Sodium [...] (dyspnea on exertion) Atherosclerotic heart disease of [place] coronary artery without angina pectoris Cardiac murmur [...] Nausea/Vom/ Verified 04/18/25 18:19 Diarrhea aspirin AdvReac "I'M ON Verified 04/18/25 18:19 BLOOD THINNERS" codeine AdvReac Nausea Verified 04/18/25 18:19 Corticosteroids AdvReac Upset Verified 04/18/25 18:19 (Glucocorticoids) Stomach morphine AdvReac Nausea Verified 04/18/25 18:19 Kqnytpj-OKV-EaD Reductase AdvReac Nausea Verified 04/18/25 18:19 Inhibitor (Fvdtbfr-Zfs-Fbv Reductase Inhibitor) Family History Mother Cancer CAD [...] MD Cosigner Signature: Date CC: ~ Signed [facility] Work Phone: 1(380) 829-458006-02-2025 Progress note Author Kevin Friend [facility] Note Date/Time April 20, 2025 1:19p m [facility] Medical Records Department [address] [place] [address] Progress Note 04/20/25 1318 MR#: [id number] Acct: [id number] Name: CHRISTINANGÉLICA ADELSO Rep #:[id number] 2 : 1955 69 From: Kevin Gonzalez DO PCP: Dr. Daron Benton MD Status:ADM IN Location: [place] [address]1 Progress Note Patient has been n.p.o. for [...] ASA of 3. Visit Charges Inpatient E&M: 89514 Subs Hosp L2 04/20/25 1319 <Electronically signed by Kevin Gonzalez DO> Kevin Gonzalez DO Cosigner Signature (if applicable): CC: ~ Signed [facility] Work Phone: 1(359) 403-286606-02-2025 Procedure [facility] 04-20-2025 Procedure [facility]06-02-2025 Progress note Author Roman Mckeon [facility] Note Date/Time April 20, 2025 7:32a m [facility] Medical Records Department [address] [place] [address] Progress Note - Hospitalist 04/20/25 0728 MR#: [id number] Acct: [id number] Name: ANGÉLICA YO Rep #:[id number] : 1955 69 From: Roman Mckeon MD PCP: Dr. Daron Benton MD Status:ADM IN Location: [place] [address]1 Reason for Visit Reason for Visit: Diagnoses [...] 74.9 H, Lymph % (Auto) 11.1 L, [place] % (Auto) 11.3 H, Eos % (Auto) [...] pain regimen Charges/Coding Visit Charges Inpatient E&M: 93919 Subs Hosp L2 04/20/25 0732 <Electronically signed by Roman Mckeon MD> Cosigner Signature (if applicable): CC: ~ Signed [facility] Work Phone: 1(896) 465-276106-01-2025 Progress note Author Roman Mckeon [facility] Note Date/Time April 19, 2025 8:12a m [facility] Medical Records Department [address] [place] [address] Progress Note - Hospitalist 04/19/2510 MR#: [id number] Acct: [id number] Name: ANGÉLICA YO Rep #:[id number] 2 : 1955 69 From: Roman Mckeon MD PCP: Dr. Daron Benton MD Status:ADM IN Location: [place] [address] Reason for Visit Reason for Visit: Diagnoses [...] (Auto) 79.5 H, Lymph % (Auto)9.5 L, [place] % (Auto) 9.4, Eos % (Auto) 0.5, [...] documentation, 52Minutes Charges/Coding Visit Charges Inpatient E&M: 85234 Subs Hosp L3 04/19/25 0812 <Electronically signed by Roman Mckeon MD> Cosigner Signature (if applicable): CC: ~ Signed [facility] Work Phone: 1(260) 160-793106-01-2025 History and physical note Author Sachin Murillo [facility] Note Date/Time April 19, 2025 12:52 am [facility] Medical Records Department [address] [place] [address] H&P Exam - Hospitalist 04/18/252126 MR#: [id number] Acct: [id number] Name: ANGÉLICA YO Rep #:[id number] 5 : 1955 69 From: Sachin chan MD PCP: Dr. Daron Benton MD Status:ADM IN Location: [place]3 [id number] HPI - General General Date of Admission: [...] lightheadedness or dizziness, no nausea or vomiting. [facility] Medical History Hypertensive emergency NSTEMI, initial episode of care Emphysema of lung Smoking greater than 30 pack years New onset atrial fibrillation [place] (dyspnea on exertion) Atherosclerotic heart disease of [place] coronary artery without angina pectoris Cardiac murmur [...] Nausea/Vom/ Verified 04/18/25 18:19 Diarrhea aspirin AdvReac "I'M ON Verified 04/18/25 18:19 BLOOD THINNERS" codeine AdvReac Nausea Verified 04/18/25 18:19 Corticosteroids AdvReac Upset Verified 04/18/25 18:19 (Glucocorticoids) Stomach morphine AdvReac Nausea Verified 04/18/25 18:19 Mochgyo-HLK-RsZ Reductase AdvReac Nausea Verified 04/18/25 18:19 Inhibitor (Zziuqyp-Bhr-Qgx Reductase Inhibitor) Family History Mother Cancer CAD [...] (Auto) 79.5 H, Lymph % (Auto)9.5 L, [place] % (Auto) 9.4, Eos % (Auto) 0.5, [...] DVT: SCDs Charges/Coding Visit Charges Inpatient E&M: 28049 Init Hosp L2 04/19/25 0052 <Electronically signed by Sachin Murillo MD> Cosigner Signature (if applicable): CC: Dr. Daron Benton MD; Dr. Sacihn Murillo MD~ Signed [facility] Work Phone: 1(532) 463-805406-01-2025 Discharge summary Author Jeffy Willoughby [facility] Note Date/Time April 18, 2025 10:46 pm [facility] Medical Records Department [address] [place] [address] Emergency Department Summary 04/18/25 MR#: [id number] Acct: [id number] Name: ANGÉLICA YO Rep #:[id number] 1 : 1955 69 From: Jeffy Willoughby MD PCP: Dr. Daron Benton MD Status:ADM IN Location: [place] [id number] HPI History of Present Illness Chief Complaint: [...] atrial fibrillation on apixaban, hyperlipidemia, non-ST elevation [place], alpha-1 antitrypsin deficiency, mitral valve stenosis, chronic [...] Prior similar symptoms: No Recent Illness/Hospitalization: Yes [facility] Medical History Hypertensive emergency NSTEMI, initial episode of care Emphysema of lung Smoking greater than 30 pack years New onset atrial fibrillation [place] (dyspnea on exertion) Atherosclerotic heart disease of [place] coronary artery without angina pectoris Cardiac murmur [...] Nausea/Vom/ Verified 04/18/25 18:19 Diarrhea aspirin AdvReac "I'M ON Verified 04/18/25 18:19 BLOOD THINNERS" codeine AdvReac Nausea Verified 04/18/25 18:19 Corticosteroids AdvReac Upset Verified 04/18/25 18:19 (Glucocorticoids) Stomach morphine AdvReac Nausea Verified 04/18/25 18:19 Ezlmjrs-EQK-OgF Reductase AdvReac Nausea Verified 04/18/25 18:19 Inhibitor (Ivuwaoc-Jha-Lrz Reductase Inhibitor) Family History Mother Cancer CAD [...] 79.5 H Lymph % (Auto) 9.5 L [place] % (Auto) 9.4 Eos % (Auto) 0.5 [...] (Auto) Neut % (Auto) Lymph % (Auto) [place] % (Auto) Eos % (Auto) Baso % [...] follows: Interpretation: Sinus Rhythm (Rate is 68. GA interval is 102 ms. Cures duration 82 ms. QT duration 456 ms. QTc is prolonged at 484 ms. Fine is normal. There is no acute ischemic changes noted.) Management Discussion w/another healthcare provider: Hospitalist (Evening hospitalist was paged. Patient will need admission with further workup. She did not receive blood in the emergency department.) Discharge Plan Dx/Rx/DC Orders Clinical Impression: Acute hypotension, Orthostatic hypotension, Acute on chronic anemia, Microcyticanemia, Signs and symptoms of anemia, Symptomatic anemia, 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 seenon monitoring specialist Disposition Disposition: Acute Care Hospital [facility] Discharge Date/Time: 04/18/25 21:33 What to do if you have Problems For any increased pain, shortness of breath, bleeding, nausea or vomiting, chestpain, or any unexpected problems, contact your Primary Care Provider. Call [facility] ([phone]) or report to the closest Emergency Room. Call 911 if necessary. 04/18/252245 <Electronically signed by Jeffy Willoughby MD> Cosigner Signature (if applicable): CC: Dr. Daron Benton MD ~ Signed [facility] Work Phone: 1(643) 267-327705-31-2025 Evaluation note* Diagnosis Onset Date Resolution Status Admit Date Acute on chronic anemia resolved M ay 2024 9:20pm Microcytic anemia resolved March 9:20pm Orthostatic hypotension resolved M ay 2024 9:20pm Signs and symptoms of anemia resolve d April 18, 2025 9:20pm 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 monitoring specialist resolved April 18, 2025 9 :20pm Symptomatic anemia resolved April 182024 9:20pm Anemia acute May 06 2:10pm Constipation acute May 06, 025 2:10pm Anemia acute June 03 7:37am DDD (degenerative disc disease), lumbosacral acute June 03, 2025 7:37am Congestive heart failure resolved June 03, 2025 7:37am Symptomatic anemia resolved May 192024 7:37am [facility] Work Phone: 1(763) 592-197505-31-2025 Evaluation note* Diagnosis Onset Date Resolution Status Admit Date Acute on chronic anemia resolved M ay 2024 9:20pm Microcytic anemia resolved March 9:20pm Orthostatic hypotension resolved M ay 2024 9:20pm Signs and symptoms of anemia resolve d April 18, 2025 9:20pm 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 monitoring specialist resolved April 18, 2025 9 :20pm Symptomatic [...] 05, 2025 12:46pm Essential hypertension acute Se ptember 2024 12:46pm Mitral stenosis acute August 05, 2025 12:46pm Paroxysmal atrial fibrillation acute August 05, 2025 12:46pm Bilateral carotid artery stenosis chronic August 05, 2025 12:46pm HLD (hyperlipidemia) chronic Jul 12:46pm Nonobstructive atheroscleros is of coronary artery chronic July 12:46pm [facility] Work Phone: 1([phone]) 849-562405-31-2025 Evaluation note* Diagnosis Onset Date Resolution Status Admit Date Acute on chronic anemia resolved M 2024 9:20pm Microcytic anemia resolved March 9:20pm Orthostatic hypotension resolved [facility] 2024 9:20pm Signs and symptoms of anemia resolve d April 18, 2025 9:20pm 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 monitoring specialist resolved April 18, 2025 9 :20pm Symptomatic anemia resolved April 182024 9:20pm Anemia acute May 06 2:10pm Constipation acute May 06, 2 025 2:10pm Anemia acute June 03 7:37am DDD (degenerative disc disease), lumbosacral acute June 03, 2025 7:37am Congestive heart failure resolved June 03, 2025 7:37am Symptomatic anemia resolved May 192024 7:37am Essential hypertension acute Se ptember 2024 12:46pm Mitral stenosis acute August 05, 2025 12:46pm Paroxysmal atrial fibrillation acute Priti 17th, 2025 12:46pm Bilateral carotid artery stenosis chronic August 05, 2025 12:46pm HLD (hyperlipidemia) chronic Jul 12:46pm Nonobstructive atheroscleros is of coronary artery chronic July 12:46pm Chest pressure inactive August 05, 2025 12:46pm Closed head injury acute Sept2024 11:34pm Fall acute July 11:34pm CHRISTOPHER (acute kidney injury) resolved August 08, 2025 11:34pm Altered mental status resolved Sep 2024 11:34pm Dehydration resolved July 11:34pm Nausea and vomiting resolved 2024 11:34pm Head injury inactive July 11:34pm [facility] Work Phone: 1(495) 104-945905-30-2025 Radiology Diagnostic study note [facility] Imaging Services [address] [place], [place] [address] Acute Abdomen Inc Chest MR#: [id number] Acct: [id number] Name: ANGÉLICA YO Rep #: [id number] 0 : 1955 F 69 From: Garo Bautista MD PCP: Dr. Daron Benton MD Status: REG ER Study:Acute Abdomen Inc Chest Date of Exam: 04/17/25 Exam# [id number] Ordering Dr: Kari Haynes DO PROCEDURE: ACUTE [...] Abdomen Inc Chest IMPRESSION: Constipation. Reading Location: [place] [address] CC: Dr. Daron Benton MD; Yasmani Haynes DO ~ Gallery Or Museum Technician: Signed [facility]05-21-2025 History of Present illness Narrative* Lizzdanielle Lynn, ANTWON - [facility] - 04/08/2025 2:30 PM EDT Visit type: Established Patient Reason for Visit: Follow-up and Multiple Sclerosis (/) Assessment and Plan 1. Multiple sclerosis (HCC) 2. Dysphasia Subjective HPI: Patient phoned in 3 days ago stating MS flare - affecting speech, swallowing, and VOSS. Went to [facility] ED about 1 week ago; according to [...] typical MS symptoms Received CT scan at [facility] that she states was normal REVIEW- MS- [...] Cuff Size: Adult) Pulse 66 Ht 5' 6" (1.676 m) Wt 108 lb 9.6 oz [...] 04/04/2023 [APTT} FLP: No results found for: "CHLPL", "TRIG", "HDL", "LDLCALC", "LDLDIRECT" TSH: No results found for: "TSH" VITAMIN B12: No results found for: "EZDHMPEG07" No results found for: "PHENYTOIN", "PHENOBARB", "VALPROATE", "CBMZ" No components found for: "TOPIRA" @RESULTINGLABINFO@ No results found for: "LEVETIRACETA", "FERRITIN", "CRP", "DENNIS", "ANCA" No results found for: "CHRISTIANO", "IMMUNOGLOBUL", "OLIGOBANDS" No results found for: "PKA41UM", "HEPCAB" No results found for: "CRP", "ANATITER", "ANCA" FERRITIN: No results found for: "FERRITIN" ---- ECG 12 lead SINUS BRADYCARDIA PROBABLE [...] new NS lesions. Rto as scheduled in May I, Lizz Lynn, ROASTER OPERATOR - JUNIOR SOFTWARE ENGINEER, furnish ongoing care related to Angélica Ohara Christin single, serious andcomplex condition(s) MS. I assume [...] family history on file. documented in this [facility]05-21-2025 Instructions* Patient Instructions* ANTWON Harrington CNP - 04/08/2025 2:30 PM EDT Please call [facility] [phone] to schedule the MRI brain before 05/03/25 - this is when the authorization for the MRI expires documented in this [facility]05-15-2025 Radiology Diagnostic study [facility]05-15-2025 Discharge summary Author Nuno Grider [facility] Note Date/Time April 02, 2025 11:43 pm [facility] Medical Records Department [address] [place] [address] Emergency Department Summary 04/02/25 MR#: [id number] Acct: [id number] Name: ANGÉLICA YO Rep #:[id number] 9 : 1955 69 From: Nuno Grider MD PCP: Dr. Daron Benton MD Status:[facility] ER Location: ED HPI History of [...] She denies any exacerbating or alleviating factors. [facility] Medical History Hypertensive emergency NSTEMI, initial episode of care Emphysema of lung Smoking greater than 30 pack years New onset atrial fibrillation [place] (dyspnea on exertion) Atherosclerotic heart disease of [place] coronary artery without angina pectoris Cardiac murmur [...] Nausea/Vom/ Verified 04/02/25 19:26 Diarrhea aspirin AdvReac "I'M ON Verified 04/02/25 19:26 BLOOD THINNERS" codeine AdvReac Nausea Verified 04/02/25 19:26 Corticosteroids AdvReac Upset Verified 04/02/25 19:26 (Glucocorticoids) Stomach morphine AdvReac Nausea Verified 04/02/25 19:26 Qnqeovj-IZS-TaA Reductase AdvReac Nausea Verified 04/02/25 19:26 Inhibitor (Bdmnwvz-Bgr-Nar Reductase Inhibitor) Family History Mother Cancer CAD [...] by him. Once again, Idiscussed with her ebta-sk-kwrn if she would like to be observed, [...] 80.4 H Lymph % (Auto) 10.5 L [place] % (Auto) 6.6 Eos % (Auto) 1.5 [...] and pelvis. Large colonic stool. [facility] Discussion w/another healthcare provider: Hospitalist [...] fever, new or worsening symptoms. Print Language: French Disposition Disposition: Home, Self Care What to do if you have Problems For any increased pain, shortness of breath, bleeding, nausea or vomiting, chestpain, or any unexpected problems, contact your Primary Care Provider. Call [facility] ([phone]) or report to the closest Emergency Room. Call 911 if necessary. 04/02/25 7631 <Electronically signed by Nuno Grider MD> Cosigner Signature (if applicable): CC: Dr. Daron Benton MD ~ Signed [facility] Work Phone: 1(410) 762-442705-15-2025 Hospital Discharge instructions Additional Instructions Follow-up with your neurologist within the next 1 to 2 days. Return with increased weakness, fever, new or worsening symptoms.[facility] Work Phone: 1(797) 433-136304-21-2025 Telephone encounter Note* Telephone Encounter - Maeve Jacobson - 03/09/2025 11:40 AM EDT Order re faxed to [phone] [facility]. [place] [id number] Miscellaneous Notes* Telephone Encounter - Maeve Jacobson - 03/09/2025 11:40 AM EDT Order re faxed to [phone] [facility]. * Telephone Encounter - Maria Antonia Furtequilajosé miguel - 03/09/2025 11:11 AM EDT Name of caller: Kody Contact phone number: [phone] Relationship to Patient: [facility] Provider: AURORA Lynn Practice: [facility] [place] Chief Complaint/Reason for Call: Kody called in requesting patient's MRI order be faxed over to them at fax # [phone]. Please be advised Best time of day caller can be reached: Any Patient advised that office/PCP has 24-48 business hours to return their call: N/A documented in [facility] HospitalHffgga[facility]-12-5888 Telephone encounter Note* Telephone Encounter - Maria Antonia Fursanjiv - 03/09/2025 11:11 AM EDT Name of caller: Kody Contact phone number: [phone] Relationship to Patient: [facility] Provider: AURORA Lynn Practice: [facility] [place] Chief Complaint/Reason for Call: Kody called in requesting patient's MRI order be faxed over to them at fax # [phone]. Please be advised Best time of day caller can be reached: Any Patient advised that office/PCP has 24-48 business hours to return their call: N/A [id number] History of Present illness Narrative* Lizzdanielle Lynn, ANTWON - JUNIOR SOFTWARE ENGINEER - 03/04/2025 10:30 AM EDT Visit type: [...] Cuff Size: Adult) Pulse 64 Ht 5' 6" (1.676 m) Wt 113 lb 9.6 oz [...] 04/04/2023 [APTT} FLP: No results found for: "CHLPL", "TRIG", "HDL", "LDLCALC", "LDLDIRECT" TSH: No results found for: "TSH" VITAMIN B12: No results found for: "ZKYWRGBK23" No results found for: "PHENYTOIN", "PHENOBARB", "VALPROATE", "CBMZ" No components found for: "TOPIRA" @RESULTINGLABINFO@ No results found for: "LEVETIRACETA", "FERRITIN", "CRP", "DENNIS", "ANCA" No results found for: "CHRISTIANO", "IMMUNOGLOBUL", "OLIGOBANDS" No results found for: "AMK72YB", "HEPCAB" No results found for: "CRP", "ANATITER", "ANCA" FERRITIN: No results found for: "FERRITIN" ---- ECG 12 lead SINUS BRADYCARDIA PROBABLE LEFT ATRIAL ABNORMALITY No previous ECG available for comparison Electronically Signed On 04-05-2023 7:42:10 EDT by Juvenal Benton @[facility]@ IMPRESSION and PLAN: Problem List Items Addressed [...] on @TDNR@ at @NOWNR@ documented in this [facility]04-04-2025 Evaluation note* Diagnosis Onset Date Resolution [...] 2025 9:20pm 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 monitoring specialist resolved April 18, 2025 9 :20pm Symptomatic anemia resolved April 182024 9:20pm Anemia acute May 06 2:10pm Constipation acute May 06, 025 2:10pm [facility] Work Phone: 1(844) 536-239304-04-2025 Evaluation note* Diagnosis Onset Date Resolution Status [...] 2025 9:20pm 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 monitoring specialist resolved April 18, 2025 9 :20pm Symptomatic anemia resolved April 182024 9:20pm Anemia acute May 06 2:10pm Constipation acute May 06, 2 025 2:10pm Anemia acute June 03 7:37am Congestive heart failure acute June 03, 2025 7:37am DDD (degenerative disc disease), lumbosacral acute June 03, 2025 7:37am Symptomatic anemia resolved May 192024 7:37am [facility] Work Phone: 1(257) 358-579802-25-2025 [facility]02-23-2025 Evaluation note* Diagnosis Onset Date Resolution Status Admit Date Atherosclerotic heart diseas e of [place] coronary artery without angina pectoris inactive January [...] 2025 9:20pm 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 monitoring specialist resolved April 18, 2025 9 :20pm Symptomatic anemia resolved April 182024 9:20pm [employer] Work Phone: 1(411) 580-411902-05-2025 Evaluation note* Diagnosis Onset Date Resolution Status Admit Date Bferx-0-dupsznzqzfj deficien cy carrier acute December 24 1:52pm Hypoxemia chronic December 24, 2024 1:52pm Emphysema of lung inactive 2024 1:52pm Nicotine dependence, cigarettes, uncomplicated inactive 2024 1:52pm Smoking greater than 30 pack years inactive December 24 1:52pm Atherosclerotic heart diseas e of [place] coronary artery without angina pectoris inactive January [...] acute March 9:20pm Orthostatic hypotension acute M 2024 9:20pm Signs and symptoms of anemia acute April 18, 2025 9:20pm 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 monitoring specialist acute April 18, 2025 9 :20pm Symptomatic anemia acute April 182024 9:20pm Acute on chronic anemia chronic M 2024 9:20pm [facility] Work Phone: 1([phone]) 183-128701-31-2025 Evaluation note* Diagnosis Onset Date Resolution Status Admit Date Mitral stenosis acute November 212024 1:16pm Bilateral carotid artery stenosis chronic December 19 1:16pm Essential (primary) hypertension inactive December 19 1:16pm PAF (paroxysmal atrial fibrillation) inactive December 19 1:16pm Peripheral vascular occlusiv e disease inactive December 19 1:16pm Czsnh-5-ggiivnekorr deficien cy carrier acute December 24 1:52pm Hypoxemia chronic December 24, 2024 1:52pm Emphysema of lung inactive 2024 1:52pm Nicotine dependence, cigarettes, uncomplicated inactive 2024 1:52pm Smoking greater than 30 pack years inactive December 24 1:52pm Atherosclerotic heart diseas e of [place] coronary artery without angina pectoris inactive January [...] e disease inactive February 20, 2025 1:14pm [facility] Work Phone: 1(236) 218-469401-31-2025 Evaluation note* Diagnosis Onset Date Resolution Status Admit Date Mitral stenosis acute November 212024 1:16pm Bilateral carotid artery stenosis chronic December 19 1:16pm Essential (primary) hypertension inactive December 19 1:16pm PAF (paroxysmal atrial fibrillation) inactive December 19 1:16pm Peripheral vascular occlusiv e disease inactive December 19 1:16pm Pekul-9-dozgybrrvlm deficien cy carrier acute December 24 1:52pm Hypoxemia chronic December 24, 2024 1:52pm Emphysema of lung inactive 2024 1:52pm Nicotine dependence, cigarettes, uncomplicated inactive 2024 1:52pm Smoking greater than 30 pack years inactive December 24 1:52pm Atherosclerotic heart diseas e of [place] coronary artery without angina pectoris inactive January [...] 2025 9:19pm 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 monitoring specialist acute April 18, 2025 9 :19pm Symptomatic anemia acute April 182024 9:19pm Acute on chronic anemia chronic M 2024 9:19pm [facility] Work Phone: 1(967) 353-368501-23-2025 [facility]01-21-2025 Evaluation note* Diagnosis Onset Date Resolution Status Admit Date Chest pain inactive December 09, 2024 2:32pm Chronic low back pain inactive Nov 2:32pm Diastolic hypertension inactive Ja nuary 2024 2:32pm Elevated troponin inactive December 09, 2024 2:32pm Nicotine dependence, cigarettes, uncomplicated inactive 2024 2:32pm Mitral stenosis acute November 212024 1:16pm Bilateral carotid artery stenosis chronic December 19 1:16pm Essential (primary) hypertension inactive December 19 1:16pm PAF (paroxysmal atrial fibrillation) inactive December 19 1:16pm Peripheral vascular occlusiv e disease inactive December 19 1:16pm Iwwvd-7-yihnrmlpfwy deficien cy carrier acute December 24 1:52pm Hypoxemia chronic December 24, 2024 1:52pm Emphysema of lung inactive 2024 1:52pm Nicotine dependence, cigarettes, uncomplicated inactive 2024 1:52pm Smoking greater than 30 pack years inactive December 24 1:52pm Atherosclerotic heart diseas e of [place] coronary artery without angina pectoris inactive January [...] e disease inactive February 20, 2025 1:14pm [facility] Work Phone: 1(209) 748-398201-02-2025 Telephone encounter Note* Telephone Encounter - Linda [...] medication tab): 09/15/24 Updated/Validated preferred pharmacy: [id number] Patient instructed to contact the pharmacy prior to picking up the medication: Yes [facility]01-02-2025 Miscellaneous Notes* Telephone Encounter - Linda Glynn [...] tab): 09/15/24 Updated/Validated preferred pharmacy: [id number] - [place] - [address] [facility] Patient instructed to contact the pharmacy prior to picking up the medication: Yes * Telephone Encounter - Nallely Zaragoza MA - 11/20/2024 2:22 PM EST Last ov-12/14/23 Next ov- N/A documented in this [facility]01-02-2025 Telephone encounter Note* Telephone Encounter - Nallely Zaragoza MA - 11/20/2024 2:22 PM EST Last ov-12/14/23 [facility]- [id number] Telephone encounter Note* Telephone Encounter - Yanely Kwon MA - 09/15/2024 6:47 AM EDT Last ov- 12/14/23 Next ov- n/a [id number] Miscellaneous Notes* Telephone Encounter - Yanely Kwon MA - 09/15/2024 6:47 AM EDT Last ov- 12/14/23 Next ov- n/a documented in this [facility]04-08-2024 Discharge summary Author Eva Mortensen [facility] February 25, 2024 4:04pm Note Date/Time February 25, 2024 3:34 pm [facility] Medical Records Department [address] [place] [address] Discharge Summary 02/25/24 1529 MR#: [id number] Acct: [id number] Name: ANGÉLICA YO Rep #:[id number] 0 : 1955 68 From: Eva Mortensen DO PCP: Dr. Daron Benton MD Status:ADM IN Location: [place] [address] Providers Date of Admission: 02/19/24 Date of Discharge: 02/25/24 Primary Care Physician: Dr. Daron Benton MD Consultations 02/19/24 16:58 Consult: Gastroenterology Routine Consulting Provider: [facility] Reason for Consult: GI bleed EMERGENT [...] who presented to the emergency department at [facility] on 02/19/2024 with lightheadedness. She does have a history of paroxysmal atrial fibrillation and is on systemic anticoagulation with apixaban at baseline. Patient reported on presentation shenfatimah been feeling well for the past 2 [...] (Auto) 68.4, Lymph % (Auto) 16.3 L, [place] % (Auto) 11.3 H, Eos % (Auto) [...] Active Staff] - 08/21/24 11:15 am Daron Bneton MD [Primary Care Provider] - 02/29/24 (As previously scheduled. ) Kevin Gonzalez DO [Med Staff - Active Staff] - 03/26/24 8:00 am Disposition Disposition (needs filled in before D/C Order can be placed): Home Health Service Charges/Coding Visit Charges Inpatient E&M: 70348 Disch Hosp >30min 02/25/24 7577 <Electronically signed by Eva Mortensen DO> Cosigner [...] the patient is mobile in the home inthe community. 04/08/24 1604<Electronically signed by Eva Mortensen DO> Cosigner Signature (if applicable): cc: Dr. Jorge Hurtado DO; Dr. Daron Benton MD; Dr. Eva Mortensen DO; Kevin Gonzalez, DO ~* Signed [facility] Work Phone: 1(594) 496-960704-08-2024 Procedure [facility] 02-25-2024 Procedure [facility]04-07-2024 Progress note Author Roman Mckeon [facility] February 24, 2024 8:37am Note Date/Time February 24, 2024 8:07 am [facility] Medical Records Department [address] [place] [address] Progress Note - Hospitalist 02/24/24805 MR#: [id number] Acct: [id number] Name: ANGÉLICA YO Rep #:[id number] 6 : 1955 68 From: Roman Mckeon MD PCP: Dr. Daron Benton MD Status:ADM IN Location: [place] [address]- Reason for Visit Reason for Visit: Diagnoses [...] (Auto) 69.1, Lymph % (Auto) 15.5 L, [place] % (Auto) 11.4 H, Eos % (Auto) [...] (Auto) 79.0 H, Lymph % (Auto)8.2 L, [place] % (Auto) 10.2 H, Eos % (Auto) [...] 19:44 EDT Reading Location ID and State: [facility] / [place] , Service support , Physical Exam Narrative [...] 35 Minutes Charges/Coding Visit Charges Inpatient E&M: 61782 Subs Hosp L2 02/24/24 0837 <Electronically signed by Roman Mckeon MD> Cosigner Signature (if applicable): CC: ~ Signed [facility] Work Phone: 1(784) 317-938804-06-2024 Progress note Author Kevin Gonzalez [facility] February 23, 2024 4:20pm Note Date/Time February 23, 2024 4:20 pm [facility] Medical Records Department [address] [place] [address] Progress Note - GI 02/23/24 1619 MR#: [id number] Acct: [id number] Name: ANGÉLICA YO Rep #:[id number] 3 : 1955 68 From: Kevin Gonzalez DO PCP: Dr. Daron Benton MD Status:ADM IN Location: [place] [address] Subjective Subjective Patient does not have any [...] Intake and Output for Last 24 Hours 04/03/1202/22/24 02/23/24 23:59 23:59 23:59 Intake Total 1685 [...] (Auto) 69.1, Lymph % (Auto) 15.5 L, [place] % (Auto) 11.4 H, Eos % (Auto) [...] - Preliminary Appears to be normal respiratory meily. Further studies to follow. 02/19/24 14:20 Blood [...] on Sunday. Charges/Coding Visit Charges Inpatient E&M: 39221 Subs Hosp L3 02/23/24 1620 <Electronically signed by Kevin Friend > Cosigner Signature (if applicable): CC: ~ Signed [facility] Work Phone: 1(377) 534-151804-06-2024 Progress note Author Roman Mckeon [facility] February 23, 2024 9:04am Note Date/Time February 23, 2024 8:20 am [facility] Medical Records Department [address] [place] [address] Progress Note - Hospitalist 02/23/24 0820 MR#: [id number] Acct: [id number] Name: ANGÉLICA YO Rep #:[id number] 2 : 1955 68 From: Roman Mckeon MD PCP: Dr. Daron Benton MD Status:ADM IN Location: [place] [address] Reason for Visit Reason for Visit: Diagnoses [...] 38 Minutes Charges/Coding Visit Charges Inpatient E&M: 99125 Subs Hosp L2 02/23/24 0904 <Electronically signed by Roman Mckeon MD> Cosigner Signature (if applicable): CC: ~ Signed [facility] Work Phone: 1(925) 985-565004-05-2024 Progress note Author Kevin Gonzalez [facility] February 22, 2024 5:55pm Note Date/Time February 22, 2024 5:55 pm [facility] Medical Records Department [address] [place] [address] Progress Note - GI 02/22/24 175 MR#: [id number] Acct: [id number] Name: ANGÉLICA YO Rep #:[id number] 8 : 1955 68 From: Kevin Gonzalez DO PCP: Dr. Daron Benton MD Status:ADM IN Location: [facility] BJO030- 1 Subjective Subjective Patient is still very lethargic [...] (Auto) 68.8, Lymph % (Auto) 14.2 L, [place] % (Auto) 12.5 H, Eos % (Auto) [...] and lethargy. Charges/Coding Visit Charges Inpatient E&M: 32365 Subs Hosp L3 02/22/241754 <Electronically signed by Kevin Friend DO> Cosigner Signature (if applicable): CC: ~ Signed [facility] Work Phone: 1(509) 155-920204-05-2024 Progress note Author Roman Mckeon [facility] February 22, 2024 9:50am Note Date/Time February 22, 2024 7:36 am [facility] Medical Records Department [address] [place] [address] Progress Note - Hospitalist 02/22/24 0736 MR#: [id number] Acct: [id number] Name: ANGÉLICA YO Rep #:[id number] 0 : 1955 68 From: Roman Mckeon MD PCP: Dr. Daron Benton MD Status:ADM IN Location: [place] [address] Reason for Visit Reason for Visit: Diagnoses [...] 52 Minutes Charges/Coding Visit Charges Inpatient E&M: 04147 Subs Hosp L3 02/22/24 0950 <Electronically signed by Roman Mckeon MD> Cosigner Signature (if applicable): CC: ~ Signed [facility] Work Phone: 1(705) 221-484104-04-2024 Progress note Author Kevin Gonzalez [facility] February 21, 2024 5:17pm Note Date/Time February 21, 2024 5:17 pm [facility] Medical Records Department [address] [facility] [place] [address] Progress Note - GI 02/21/24 1710 MR#: [id number] Acct: [id number] Name: ANGÉLCIA YO Rep #:[id number] 8 : 1955 68 From: Kevin Friend DO PCP: Dr. Daron Benton MD Status:ADM IN Location: [place] [address] Subjective Subjective She underwent an upper endoscopy [...] or outpatient. Charges/Coding Visit Charges Inpatient E&M: 97874 Subs Hosp L3 02/21/24 1717 <Electronically signed by Kevin Gonzalez DO> Cosigner Signature (if applicable): CC: ~ Signed [facility] Work Phone: 1(621) 223-872704-04-2024 Progress note Author Roman Mckeon [facility] February 21, 2024 11:21am Note Date/Time February 21, 2024 10:0 5am [facility] Medical Records Department [address] [facility] [place] [address] Progress Note - Hospitalist 02/21/24 1002 MR#: [id number] Acct: [id number] Name: ANGÉLICA YO Rep #:[id number] 4 : 1955 68 From: Roman Mckeon MD PCP: Dr. Daron Benton MD Status:ADM IN Location: [place] [id number] Reason for Visit Reason for Visit: [...] 50 Minutes Charges/Coding Visit Charges Inpatient E&M: 74125 Subs Hosp L3 02/21/24 1121 <Electronically signed by Roman Mckeon MD> Cosigner Signature (if applicable): CC: ~ Signed [facility] Work Phone: 1(227) 841-853604-03-2024 Progress note Author Roman Bowermarcelle [facility] February 20, 2024 11:46am Note Date/Time February 20, 2024 10:0 8am [facility] Medical Records Department [address] [place] [address] Progress Note - Hospitalist 02/20/24 1005 MR#: [id number] Acct: [id number] Name: ANGÉLICA YO Rep #:[id number] 6 : 1955 68 From: Roman Mckeon MD PCP: Dr. Daron Benton MD Status:ADM IN Location: [place] [address] Reason for Visit Reason for Visit: Diagnoses [...] 73.5 H, Lymph % (Auto) 14.5 L, [place] % (Auto) 8.5, Eos % (Auto) 2.6, [...] 71.0 H, Lymph % (Auto) 14.4 L, [place] % (Auto) 11.1 H, Eos % (Auto) [...] 50 Minutes Charges/Coding Visit Charges Inpatient E&M: 16599 Subs Hosp L3 02/20/24 1146 <Electronically signed by Roman Mckeon MD> Cosigner Signature (if applicable): CC: ~ Signed [facility] Work Phone: 1(132) 881-837904-03-2024 Procedure [facility] 02-20-2024 Procedure [facility]04-02-2024 Consult note Author Kevin Friend [facility] February 19, 2024 7:12pm Note Date/Time February 19, 2024 7:09 pm [facility] Medical Records Department [address] [place] [address] Consultation - GI 02/19/24 1908 MR#: [id number] Acct: [id number] Name: ANGÉLICA YO Rep #:[id number] 1 : 1955 68 From: Kevin Gonzalez DO PCP: Dr. Daron Benton MD Status:ADM IN Location: [place] [address] HPI Consult Data Date of Consult: 02/19/24 [...] fell on Easter in the driveway onto [facility] [address]. She did not hit her head. She denies any recent hospitalization or travel. Imaging of the chest displayed : right lower lobe infiltrate with small right pleural effusion with mild degree of vascular congestion in the right hemithorax. In the ED she was discovered to have a hemoglobin of 6.6. I was consulted for acute onset anemia [facility] Medical History Angina pectoris Bilateral carotid [...] Nausea/Vom/ Verified 02/19/24 10:57 Diarrhea aspirin AdvReac "I'M ON Verified 02/19/24 10:57 BLOOD THINNERS" codeine AdvReac Nausea Verified 02/19/24 10:57 Corticosteroids AdvReac Upset Verified 02/19/24 10:57 (Glucocorticoids) Stomach morphine AdvReac Nausea Verified 02/19/24 10:57 Ejqkcqh-Ojp-Pyo Reductase AdvReac Nausea Verified 02/19/24 10:57 Inhibitor [...] 73.5 H, Lymph % (Auto) 14.5 L, [place] % (Auto) 8.5, Eos % (Auto) 2.6, [...] of 3. Charges/Coding Visit Charges Inpatient E&M: 11542 Init Hosp L3 02/19/241911 <Electronically signed by Kevin Friend DO> Cosigner Signature (if applicable): CC: Dr. Daron Benton MD~ Signed [facility] Work Phone: 1(503) 625-358304-02-2024 History and physical note Author Roman Mckeon [facility] February 19, 2024 3:25pm Note Date/Time February 19, 2024 2:26 pm [facility] Medical Records Department [address] [place] [address] H&P Exam - Hospitalist 02/19/24 1426 MR#: [id number] Acct: [id number] Name: ANGÉLICA YO Rep #:[id number] 0 : 1955 68 From: Roman Mckeon [...] Admitted to monitored bed for further management [facility] Medical History Angina pectoris Bilateral carotid [...] Nausea/Vom/ Verified 02/19/24 10:57 Diarrhea aspirin AdvReac "I'M ON Verified 02/19/24 10:57 BLOOD THINNERS" codeine AdvReac Nausea Verified 02/19/24 10:57 Corticosteroids AdvReac Upset Verified 02/19/24 10:57 (Glucocorticoids) Stomach morphine AdvReac Nausea Verified 02/19/24 10:57 Jmktzso-HKK-OwT Reductase AdvReac Nausea Verified 02/19/24 10:57 Inhibitor [Ynhhvey-Xxc-Cmo Reductase Inhibitor] Family History Mother Cancer CAD [...] 73.5 H, Lymph % (Auto) 14.5 L, [place] % (Auto) 8.5, Eos % (Auto) 2.6, [...] 18 minutes. Charges/Coding Visit Charges Inpatient E&M: 83325 Init Hosp L3 Procedures Hospitalists Procedures: 07694 Advncd Care Plan 30 Min 02/19/24 1525 <Electronically signed by Roman Mckeon MD> Cosigner Signature (if applicable): CC: Dr. Roman Mckeon MD; Dr. Daron Benton MD~ Signed [facility] Work Phone: 1(432) 473-248604-02-2024 Discharge summary Author Jeffy Willoughby [facility] February 19, 2024 2:59pm Note Date/Time February 19, 2024 12:1 5pm [facility] Medical Records Department [address] [place] [address] Emergency Department Summary 02/19/24 MR#: [id number] Acct: [id number] Name: ANGÉLICA YO Rep #:[id number] 6 : 1955 68 From: Jeffy Willoughby MD PCP: Dr. Daron Benton MD Status:[facility] ER Location: ED ADDENDUM by Dr. Jeffy Willoughby MD on 02/19/24 at 1459 EKG reveals atrial fibrillation with a ventricular rate 87. QRS duration 84 ms. QT duration 414 ms. Fine is normal. QT is prolonged. 02/19/24 1459<Electronically [...] Nausea/Vom/ Verified 02/19/24 10:57 Diarrhea aspirin AdvReac "I'M ON Verified 02/19/24 10:57 BLOOD THINNERS" codeine AdvReac Nausea Verified 02/19/24 10:57 Corticosteroids AdvReac Upset Verified 02/19/24 10:57 (Glucocorticoids) Stomach morphine AdvReac Nausea Verified 02/19/24 10:57 Rcezhqz-UOV-QuE Reductase AdvReac Nausea Verified 02/19/24 10:57 Inhibitor [Uypnoka-Zvq-Ivo Reductase Inhibitor] Family History Mother Cancer CAD [...] Warren RN - Last Filed: 02/19/24 13:46> [facility] MDM Narrative Medical decision making narrative: Patient placed on monitoring specialist. IV line initiated. Labwork obtained to evaluate [...] 73.5 H Lymph % (Auto) 14.5 L [place] % (Auto) 8.5 Eos % (Auto) 2.6 [...] in both arms to rule out dissection. Hphlk-ut-ricx glucose was obtained to rule out hypoglycemia. [...] decision making narrative: Patient placed on monitoring specialist. IV line initiated. Labwork obtained to evaluate [...] 73.5 H Lymph % (Auto) 14.5 L [place] % (Auto) 8.5 Eos % (Auto) 2.6 [...] for hypertension and pneumonia), Discussing w/Patient &/or Family/Tire Maintenance Technician, Discussing w/Consultants (Spoke with Dr. Chamorro who referred patient to Dr. Roman Mckeon. Patient was accepted.) and Arranging Admission or Transfer Discharge Plan Dx/Rx/DC Orders Clinical Impression: Acute hypotension, Essential (primary) hypertension, Atrial fibrillation, Community acquired pneumonia, Atypical chest pain, Signs and symptoms of anemia,Symptomatic anemia, Peripheral vascular occlusive disease Disposition Disposition: Acute Care Hospital [facility] What to do if you have Problems For any increased pain, shortness of breath, bleeding, nausea or vomiting, chestpain, or any unexpected problems, contact your Primary Care Provider. Call [facility] ([phone]) or report to the closest Emergency Room. Call 911 if necessary. 02/19/24 1439 <Electronically signed by Jeffy Willoughby MD> Cosigner Signature (if applicable): 02/19/24 1346 <Electronically signed by Bernice Warren RN> CC: Dr. Daron Benton MD ~ Signed [facility] Work Phone: 1(422) 755-246204-02-2024 Discharge summary Author Jeffy Willoughby [facility] February 19, 2024 2:59pm Note Date/Time February 19, 2024 12:1 5pm [facility] Medical Records Department [address] [place] [address] Emergency Department Summary 02/19/24 MR#: [id number] Acct: [id number] Name: ANGÉLICA YO Rep #:[id number] 6 : 1955 68 From: Jeffy Willoughby MD PCP: Dr. Daron Benton MD Status:[facility] ER Location: ED ADDENDUM by Dr. Jeffy Willoughby MD on 02/19/24 at 1459 EKG reveals atrial fibrillation with a ventricular rate 87. QRS duration 84 ms. QT duration 414 ms. Fine is normal. QT is prolonged. 02/19/24 1459<Electronically [...] Prior similar symptoms: Yes Recent Illness/Hospitalization: No [facility] <Bernice Warren RN - Last Filed: 02/19/24 13:46> [facility] Medical History Angina pectoris Bilateral carotid [...] Nausea/Vom/ Verified 02/19/24 10:57 Diarrhea aspirin AdvReac "I'M ON Verified 02/19/24 10:57 BLOOD THINNERS" codeine AdvReac Nausea Verified 02/19/24 10:57 Corticosteroids AdvReac Upset Verified 02/19/24 10:57 (Glucocorticoids) Stomach morphine AdvReac Nausea Verified 02/19/24 10:57 Bthfczd-STM-BqH Reductase AdvReac Nausea Verified 02/19/24 10:57 Inhibitor [Dxlfqiq-Tsc-Bzj Reductase Inhibitor] Family History Mother Cancer CAD [...] Warren RN - Last Filed: 02/19/24 13:46> [facility] MDM Narrative Medical decision making narrative: Patient placed on monitoring specialist. IV line initiated. Labwork obtained to evaluate [...] 73.5 H Lymph % (Auto) 14.5 L [place] % (Auto) 8.5 Eos % (Auto) 2.6 [...] in both arms to rule out dissection. Fbymc-hk-appk glucose was obtained to rule out hypoglycemia. [...] Willoughby MD - Last Filed: 02/19/24 14:39> [facility] MDM Narrative Medical decision making narrative: Patient placed on monitoring specialist. IV line initiated. Labwork obtained to evaluate [...] 73.5 H Lymph % (Auto) 14.5 L [place] % (Auto) 8.5 Eos % (Auto) 2.6 [...] for hypertension and pneumonia), Discussing w/Patient &/or Family/Tire Maintenance Technician, Discussing w/Consultants (Spoke with Dr. Chamorro who referred patient to Dr. Roman Mckeon. Patient was accepted.) and Arranging Admission or Transfer Discharge Plan Dx/Rx/DC Orders Clinical Impression: Acute hypotension, Essential (primary) hypertension, Atrial fibrillation, Community acquired pneumonia, Atypical chest pain, Signs and symptoms of anemia,Symptomatic anemia, Peripheral vascular occlusive disease Disposition Disposition: Acute Care Hospital [facility] What to do if you have Problems For any increased pain, shortness of breath, bleeding, nausea or vomiting, chestpain, or any unexpected problems, contact your Primary Care Provider. Call [facility] ([phone]) or report to the closest Emergency Room. Call 911 if necessary. 02/19/24 1439 <Electronically signed by Jeffy Willoughby MD> Cosigner Signature (if applicable): 02/19/24 1346 <Electronically signed by Bernice Warren RN> CC: Dr. Daron Benton MD ~ Signed [facility] Work Phone: 1(510) 391-387604-02-2024 History and physical note [facility] February 19, 2024 3:25pm Note Date/Time February 19, 2024 2:26 pm [facility] Medical Records Department [address] [place] [address] H&P Exam - Hospitalist 02/19/24 1426 MR#: [id number] Acct: [id number] Name: ANGÉLICA YO Rep #:[id number] 0 : 1955 68 From: Roman Mckeon [...] Admitted to monitored bed for further management [facility] Medical History Angina pectoris Bilateral carotid [...] Nausea/Vom/ Verified 02/19/24 10:57 Diarrhea aspirin AdvReac "I'M ON Verified 02/19/24 10:57 BLOOD THINNERS" codeine AdvReac Nausea Verified 02/19/24 10:57 Corticosteroids AdvReac Upset Verified 02/19/24 10:57 (Glucocorticoids) Stomach morphine AdvReac Nausea Verified 02/19/24 10:57 Rwgczne-SDN-RnM Reductase AdvReac Nausea Verified 02/19/24 10:57 Inhibitor [Whwgnsd-Hci-Evo Reductase Inhibitor] Family History Mother Cancer CAD [...] 73.5 H, Lymph % (Auto) 14.5 L, [place] % (Auto) 8.5, Eos % (Auto) 2.6, [...] on apixaban held consult placed to Dr. Gonzlaez with GI for possible endoscopic evaluation 3. [...] 18 minutes. Charges/Coding Visit Charges Inpatient E&M: 01040 Init Hosp L3 Procedures Hospitalists Procedures: 71125 Advncd Care Plan 30 Min 02/19/24 1525 <Electronically signed by Roman Mckeon MD> Cosigner Signature (if applicable): CC: Dr. Roman Mckeon MD; Dr. Daron Benton MD~ Signed [facility] Work Phone: 1(666) 976-155103-25-2024 Telephone encounter Note* Telephone Encounter - Nicole [...] prior to picking up the medication: [id number] Miscellaneous Notes* Telephone Encounter - Nicole Cota [...] up the medication: N/A [id number] Discharge summary Author Jori Garcia [facility] January 11, 2024 8:14am Note Date/Time January 11, 2024 2:45am [facility] Medical Records Department [address] [place] [address] Emergency Department Summary 01/11/24 MR#: [id number] Acct: [id number] Name: ANGÉLICA YO Rep #:[id number] 4 : 1955 68 From: Jori Garcia [...] She states she has been dealing with "crystals in her ears", following with neurology at [facility], and has been having dizziness related [...] she has osteoporosis. Sheis on no anticoagulants. [facility] Medical History Angina pectoris Bilateral carotid [...] Nausea/Vom/ Verified 01/11/24 02:15 Diarrhea aspirin AdvReac "I'M ON Verified 01/11/24 02:15 BLOOD THINNERS" codeine AdvReac Nausea Verified 01/11/24 02:15 Corticosteroids AdvReac Upset Verified 01/11/24 02:15 (Glucocorticoids) Stomach morphine AdvReac Nausea Verified 01/11/24 02:15 Oupkcfj-YQQ-CpK Reductase AdvReac Nausea Verified 01/11/24 02:15 Inhibitor [Xzeaogn-Wlt-Apv Reductase Inhibitor] Family History Mother Cancer CAD [...] per HPI, disequillibrium, dizziness and other Details: Ivane felt like she was off balance ; [...] (prior Afib thought to have caused CVA/TIA, [id number]-ZKHp score of 4, prescribed Eliquis but patient [...] 85.1 H Lymph % (Auto) 5.2 L [place] % (Auto) 7.7 Eos % (Auto) 0.2 [...] Clarity Clear Urine pH 7.0 Ur Specific Logan 1.010 Urine Protein Negative Urine Glucose (UA) [...] (Auto) Neut % (Auto) Lymph % (Auto) [place] % (Auto) Eos % (Auto) Baso % (Auto) Absolute Neuts (auto) Absolute Lymphs (auto) Nucleated RBC % Sodium Potassium Chloride Carbon Dioxide Anion Gap BUN Creatinine Estim Creat Clear Calc Est GFR (MDRD) Af Amer Est GFR (MDRD) Non-Af BUN/Creatinine Ratio Glucose Lactic Acid Calcium Magnesium Troponin I High Sens 17 Urine Color Urine Clarity Urine pH Ur Specific Logan Urine Protein Urine Glucose (UA) Urine Ketones [...] problems, contact your Primary Care Provider. Call [email or web address] Registry ([phone]) or report to the closest Emergency Room. Call 911 if necessary. 01/11/24 0814 <Electronically signed by Jori Garcia MD> Cosigner Signature (if applicable): CC: Dr. Tye Barnett MD; Dr. 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 States her BP was treated and "scanned my heart" and sent her home. Added Elequis, but patient refuses to take because causes stomach pains. Was taken off lisinopril. Added metropolol, but hasn't been taking the metropolol the past couple of days though because BP was getting too low. Symptoms remained so she went back to ER for same thing. Was given IV solumedrol; unsure how much solumedrol she received. From [facility] records: CT brain 12/02/23: no acute intracranial [...] 04/04/2023 [APTT} FLP: No results found for: "CHLPL", "TRIG", "HDL", "LDLCALC", "LDLDIRECT" TSH: No results found for: "TSH" VITAMIN B12: No results found for: "QOMBNKYE89" No results found for: "PHENYTOIN", "PHENOBARB", "VALPROATE", "CBMZ" No components found for: "TOPIRA" @RESULTINGLABINFO@ No results found for: "LEVETIRACETA", "FERRITIN", "CRP", "DENNIS", "ANCA" No results found for: "CHRISTIANO", "IMMUNOGLOBUL", "OLIGOBANDS" No results found for: "IZN93JV", "HEPCAB" No results found for: "CRP", "ANATITER", "ANCA" FERRITIN: No results found for: "FERRITIN" ---- ECG 12 lead SINUS BRADYCARDIA PROBABLE LEFT ATRIAL ABNORMALITY No previous ECG available for comparison Electronically Signed On 04-05-2023 7:42:10 EDT by Juvenal Benton [facility] IMPRESSION and PLAN: Problem List Items Addressed [...] order vestibular theapy Vestibular therapy Referral to [facility]. No problem-specific Assessment & Plan notes found for this encounter. ANTWON Harrington CNP I spent 60 minutes caring for this patient today, reviewing labs, records, seeing the patient, documenting in the record and arranging for studies. Electronically signed by ANTWON Harrington CNP on @TDNR@ at @NOWNR@ documented in this encounterSClinton Memorial [id number] Instructions* Patient Instructions* ANTWON Harrington CNP - 12/14/2023 2:00 PM EST Prednisone 20mg: take 5 tablets on day 1, 4 tablets on day 2, 3 tablets on day 3, 2 tablets on day 4, and 1 tablet on day 5 Vestibular therapy at [facility] [phone] [facility] for eye exam: [phone] documented in this [facility]01-19-2024 Discharge summary Author Sachin Murillo [facility] December 07, 2023 12:49pm Note Date/Time December 07, 2023 1 2:38pm [facility] Medical Records Department [address] [place] [address] Instructions for Home/Discharge Instructions 12/07/23 1238 MR#: [id number] Acct: [id number] Name: ANGÉLICA YO Rep #:[id number] 3 : 1955 68 From: Sachin chan [...] Terry; SARI MENA; Jose Santos; Rhiannon Farris; tK Friend; Angie Shields; Jo Ann Krishnamurthy; Johnny [...] Farris DO; Keyona Davidson MD ~ Signed [facility] Work Phone: 1(106) 857-607301-18-2024 Progress note Author Sachin Murillo [facility] December 06, 2023 9:04am Note Date/Time December 06, 2023 9 :04am [facility] Medical Records Department [address] [place] [address] Progress Note - Hospitalist 12/06/23 0900 MR#: [id number] Acct: [id number] Name: ANGÉLICA YO Rep #:[id number] 3 : 1955 68 From: Sachin chan [...] (Auto) 79.3 H, Lymph % (Auto) 10.6L, [place] % (Auto) 9.4, Eos % (Auto) 0.0, [...] Continue with Synthroid DVT: Eliquis Capacity Legal Rollout Manager Reflex Medical hold order details:: IF a medical hold is selected below, a suggested order for a MEDICAL HOLD will reflex upon signing the document. Next of kin: [place] law dictates a PRIORITY LIST for identifying legal decision-maker/legal next of kin in the following order (LNOK): 1st: The patient?s legal guardian, if any 2nd: The patient's spouse (if status is questionable, consult Risk Management) 3rd: The patient?s adult child(blaine) (majority, if multiple children) 4th: The patient?s parents 5th: The patient?s adult siblings (majority, if multiple children siblings) Charges/Coding Visit Charges Inpatient E&M: 43020 Subs Hosp L2 12/06/23 0904 <Electronically signed by Sachin Murillo MD> Cosigner Signature (if applicable): CC: ~ Signed [facility] Work Phone: 1(352) 887-188501-17-2024 Progress note Author Kiley Carpenter [facility] December 05, 2023 3:42pm Note Date/Time December 05, 2023 1 :57pm [facility] Medical Records Department [address] [place] [address] Progress Note - Neurology 12/05/23 1348 MR#: [id number] Acct: [id number] Name: ANGÉLICA YO Rep #:[id number] 3 : 1955 68 From: Kiley Carpenter [...] NIHSS: Ischemic Stroke/TIA Start: 12/03/23 09:41 Freq: [id number] Status: Active Protocol: Activity Type Activity Date Activity User E-sign Co-sign Detail Recorded Client Recorded Date Recorded By Document 12/05/23 10:00 RV Desktop 12/05/23 10:50 RV 12/05/23 10:00 NIH Stroke Scale [NIHSS] A score of 0 is "normal" or asymptomatic . Total possible score is [...] 0 Query Text:A score of 0 is "normal" or asymptomatic. Total possible score is 42 [...] 90.5 H, Lymph % (Auto) 5.1 L, [place] % (Auto) 3.7, Eos % (Auto) 0.0, [...] 5 5 EF 5 5 WE WF Cyanide Pot Hardener 5 5 HF 3 5 KE 4 5 KF 5 4 DF 5 5 PF 5 5 -? Sensation- Intact to light touch bilaterally -? Coordination: improved ataxia on the RLE (not prominent); b/l UE with no ataxia -? Gait- deferred 12/05/23 1542 <Electronically signed by Kiley Carpenter MD> Cosigner Signature (if applicable): CC: ~ Signed [facility] Work Phone: 1(732) 164-783901-17-2024 Progress note Author Sachin Murillo [facility] December 05, 2023 10:21am Note Date/Time December 05, 2023 1 0:21am [facility] Medical Records Department [address] [place] [address] Progress Note - Hospitalist 12/05/23 1016 MR#: [id number] Acct: [id number] Name: ANGÉLICA YO Rep #:[id number] 1 : 1955 68 From: Sachin chan [...] 90.5 H, Lymph % (Auto) 5.1 L, [place] % (Auto) 3.7, Eos % (Auto) 0.0, [...] Signed: Enzo Bennett MD at 7:40 EST Reading Location ID and State: [facility] / [place] , Service support , Rhythm Strip Rhythm [...] meds as needed DVT: Eliquis Capacity Legal Rollout Manager Reflex Medical hold order details:: IF a medical hold is selected below, a suggested order for a MEDICAL HOLD will reflex upon signing the document. Next of kin: [place] law dictates a PRIORITY LIST for identifying legal decision-maker/legal next of kin in the following order (LNOK): 1st: The patient?s legal guardian, if any 2nd: The patient's spouse (if status is questionable, consult Risk Management) 3rd: The patient?s adult child(blaine) (majority, if multiple children) 4th: The patient?s parents 5th: The patient?s adult siblings (majority, if multiple children siblings) Charges/Coding Visit Charges Inpatient E&M: 22419 Subs Hosp L2 12/05/23 1021 <Electronically signed by Sachin Murillo MD> Cosigner Signature (if applicable): CC: ~ Signed [facility] Work Phone: 1(896) 493-284101-17-2024 Progress note Author Jorge Hurtado [facility] December 05, 2023 8:31am Note Date/Time December 05, 2023 7 :39am [facility] Medical Records Department [address] [place] [address] Progress Note - Doctor Of Optometry 12/05/23 0737 MR#: [id number] Acct: [id number] Name: ANGÉLICA YO Rep #:[id number] 1 : 1955 68 From: Jorge Hurtado [...] noted above. This note was generated with Retrotope dictation software. It may contain incorrectwords, spelling, [...] Output Total 200 / 200 Balance 2165 140 / 140 112 / 112 [...] 90.5 H, Lymph % (Auto) 5.1 L, [place] % (Auto) 3.7, Eos % (Auto) 0.0, [...] Signed: Elijah Pollack MD at 18:30 EST Reading Location ID and State: [facility] / [place] Tel , Service support , Rhythm Strip [...] Psych cooperative Charges/Coding Visit Charges Inpatient E&M: 98448 Subs Hosp L2 12/05/23 0831 <Electronically signed by Jorge Hurtado DO> Cosigner Signature (if applicable): CC: ~ Signed [facility] Work Phone: 1(403) 796-400101-17-2024 Progress note Author Kiley Carpenter [facility] December 04, 2023 10:44pm Note Date/Time December 04, 2023 8 :19pm [facility] Medical Records Department [address] [place] [address] Progress Note - Neurology 12/04/232014 MR#: [id number] Acct: [id number] Name: ANGÉLICA YO Rep #:[id number] 8 : 1955 68 From: Kiley Carpenter [...] NIHSS: Ischemic Stroke/TIA Start: 12/03/23 09:41 Freq: [id number] Status: Active Protocol: Activity Type Activity Date Activity User E-sign Co-sign Detail Recorded Client Recorded Date Recorded By Document 12/04/23 17:29 KES Desktop 12/04/23 17:30 KES 12/04/23 17:29 NIH Stroke Scale [NIHSS] A score of 0 is "normal" or asymptomatic . Total possible score is [...] 5 Query Text:A score of 0 is "normal" or asymptomatic. Total possible score is 42 [...] (Auto) 91.9 H, Lymph % (Auto)4.1 L, [place] % (Auto) 3.1, Eos % (Auto) 0.0, [...] Cosigner Signature (if applicable): CC: ~ Signed [facility] Work Phone: 1(311) 782-153501-16-2024 Consult note Author Jorge Hurtado [facility] December 04, 2023 2:14pm Note Date/Time December 04, 2023 7 :20am [facility] Medical Records Department [address] [place] [address] Consultation - Doctor Of Optometry 12/04/23 0715 MR#: [id number] Acct: [id number] Name: ANGÉLICA YO Rep #:[id number] 6 : 1955 68 From: Jorge Hurtado [...] noted above. This note was generated with Retrotope dictation software. It may contain incorrectwords, spelling, [...] maintained on Eliquis, Plavix, Neurontin and antimicrobials. [facility] Medical History Angina pectoris Bilateral carotid [...] Nausea/Vom/ Verified 11/26/23 12:47 Diarrhea aspirin AdvReac "I'M ON Verified 11/26/23 12:47 BLOOD THINNERS" codeine AdvReac Nausea Verified 11/26/23 12:47 Corticosteroids AdvReac Upset Verified 11/26/23 12:47 (Glucocorticoids) Stomach morphine AdvReac Nausea Verified 11/26/23 12:47 Mqsuzdh-OEK-ErY Reductase AdvReac Nausea Verified 11/26/23 12:47 Inhibitor [Vsmzkdq-Oki-Dno Reductase Inhibitor] Family History Mother Cancer CAD [...] (Auto) 91.9 H, Lymph % (Auto)4.1 L, [place] % (Auto) 3.1, Eos % (Auto) 0.0, [...] MD at 22:18 EST , Capacity Legal Rollout Manager Reflex Medical hold order details:: IF a medical hold is selected below, a suggested order for a MEDICAL HOLD will reflex upon signing the document. Next of kin: [place] law dictates a PRIORITY LIST for identifying legal decision-maker/legal next of kin in the following order (LNOK): 1st: The patient?s legal guardian, if any 2nd: The patient's spouse (if status is questionable, consult Risk Management) 3rd: The patient?s adult child(blaine) (majority, if multiple children) 4th: The patient?s parents 5th: The patient?s adult siblings (majority, if multiple children siblings) Charges/Coding Visit Charges Inpatient E&M: 13495 Init Hosp L3 12/04/23 1414 <Electronically signed [...] MD; Rhiannon Farris DO; Keyona Davidson MD~ [facility] Work Phone: 1(356) 890-321401-16-2024 Progress note Author Sachin Murillo [facility] December 04, 2023 9:58am Note Date/Time December 04, 2023 9 :58am [facility] Medical Records Department [address] [place] [address] Progress Note - Hospitalist 12/04/23 0953 MR#: [id number] Acct: [id number] Name: ANGÉLICA YO Rep #:[id number] 1 : 1955 68 From: Sachin chan [...] (Auto) 91.9 H, Lymph % (Auto)4.1 L, [place] % (Auto) 3.1, Eos % (Auto) 0.0, [...] meds as needed DVT: Eliquis Capacity Legal Rollout Manager Reflex Medical hold order details:: IF a medical hold is selected below, a suggested order for a MEDICAL HOLD will reflex upon signing the document. Next of kin: [place] law dictates a PRIORITY LIST for identifying legal decision-maker/legal next of kin in the following order (LNOK): 1st: The patient?s legal guardian, if any 2nd: The patient's spouse (if status is questionable, consult Risk Management) 3rd: The patient?s adult child(blaine) (majority, if multiple children) 4th: The patient?s parents 5th: The patient?s adult siblings (majority, if multiple children siblings) Charges/Coding Visit Charges Inpatient E&M: 52387 Subs Hosp L2 12/04/23 0958 <Electronically signed by Sachin Murillo MD> Cosigner Signature (if applicable): CC: ~ Signed [facility] Work Phone: 1(344) 476-239601-16-2024 Progress note Author Roman Hewitt [facility] December 04, 2023 12:19am Note Date/Time December 03, 2023 8 :22pm [facility] Medical Records Department [address] [place] [address] Progress Note - Hospitalist 12/03/232018 MR#: [id number] Acct: [id number] Name: ANGÉLICA YO Rep #:[id number] 9 : 1955 68 From: Roman Ortega [...] persistent altered mental status and was not "protecting her airway". The patient was noted to have stable vital signs and her atrial fibrillation with rapid ventricular response present earlier in the day had resolved as of this time. I patiently spoke to the MISSION ANALYST and informed her to send the patient [...] with results. RUN DATE: 12/03/23 [facility], DEPARTMENT OF LABORATORIES PAGE 1 RUN TIME: 2038 Specimen Inquiry [address], [place], [place], [id number] PATIENT: ANGÉLICA YO LOC: ICU U #: [id number] : 1955 AGE/SX: 68/F FACILITY: [facility] ROOM: ICU02 RE12/02/[address]: Dr. Sachin Murillo STATUS:ADM IN ED: 1 DIS: ~ SPEC #: [id number] LIZBET: 12/03/23 STATUS: COMP REQ #: [id number] RECD: 12/03/[address]: Dr. Sachin Murillo MD ENTERED: 12/03/23 [facility] DR: Kt Friend MD, Angie Perales MD, Jo Ann Kiley Zha, MD Dr. Johnny Derick, MD Dr. Roman Kittoe, MD Dr. Daron Benton, MD Dr. Nikole Estefany, MD Dr. Gerald Bittar, MD Dr. MD Arleen Arce DO Dr. Matthew Gusler, DO Mian, Maryam [...] mmol/L SO2 95 95-99 % [facility] Imaging Services [address] [place] [address] CTA Head AND Neck W/ Contrast MR#: [id number] Acct: [id number] Name: ANGÉLICA YO Rep #: [id number] : 1955 F 68 From: Charmaine Grant MD PCP: Dr. Daron Benton MD Status: ADM IN Study: CTA Head AND Neck W/ Contrast Date of Exam: 12/03/23 Exam# [id number] Ordering Dr: Roman Miller DO STUDY: CTA [...] There is no demonstrated aneurysm of the [place] of [place]. There is no demonstrated abnormality of the visualized brain. AORTIC ARCH: There is atherosclerotic calcific plaque formation of the aortic arch and great vessels arising from the aortic arch, without a hemodynamically significant stenosis. There is a "bovine" origin of the great vessels with a [...] Miller DO; Dr. Daron Benton MD ~ Gallery Or Museum Technician: Signed 12/04/23 0019 <Electronically signed by Roman Miller DO> Cosigner Signature (if applicable): CC: ~ Signed [facility] Work Phone: 1(446) 541-373601-15-2024 Progress note Author Sachin Murillo [facility] December 03, 2023 2:31pm Note Date/Time December 03, 2023 2 :22pm [facility] Medical Records Department [address] [place] [address] Progress Note - Hospitalist 12/03/23 1419 MR#: [id number] Acct: [id number] Name: ANGÉLICA YO Rep #:[id number] 5 : 1955 68 From: Sachin chan MD PCP: Dr. Daron Benton MD Status:ADM IN Location: [place] [address] Subjective Subjective She was a stroke alert [...] 88.4 H, Lymph % (Auto) 10.2 L, [place] % (Auto) 0.8, Eos % (Auto) 0.0, [...] meds as needed DVT: Eliquis Capacity Legal Rollout Manager Reflex Medical hold order details:: IF a medical hold is selected below, a suggested order for a MEDICAL HOLD will reflex upon signing the document. Next of kin: [place] law dictates a PRIORITY LIST for identifying legal decision-maker/legal next of kin in the following order (LNOK): 1st: The patient?s legal guardian, if any 2nd: The patient's spouse (if status is questionable, consult Risk Management) 3rd: The patient?s adult child(blaine) (majority, if multiple children) 4th: The patient?s parents 5th: The patient?s adult siblings (majority, if multiple children siblings) Charges/Coding Visit Charges Inpatient E&M: 54606 Subs Hosp L2 12/03/23 1431 <Electronically signed by Sachin Murillo MD> Cosigner Signature (if applicable): CC: ~ Signed [facility] Work Phone: 1(127) 328-375401-14-2024 Consult note Author Kiley Carpenter [facility] December 02, 2023 2:51pm Note Date/Time December 02, 2023 2 :05pm [facility] Medical Records Department [address] [place] [address] Consultation - Neurology 12/02/23 1403 MR#: [id number] Acct: [id number] Name: ANGÉLICA YO Rep #:[id number] 9 : 1955 68 From: Kiley Carpenter MD PCP: Dr. Daron Benton MD Status:ADM IN Location: [place] [address] Assessment and Plan: Neuro Assessment/Plan ANGÉLICA YO [...] any urinary symptoms. Her neurologist is in [place]. ANGÉLICA YO, is a 68 F with [...] hrs Had her aneurysm coiled in 2013. [facility] Medical History Angina pectoris Bilateral carotid [...] Nausea/Vom/ Verified 11/26/23 12:47 Diarrhea aspirin AdvReac "I'M ON Verified 11/26/23 12:47 BLOOD THINNERS" codeine AdvReac Nausea Verified 11/26/23 12:47 Corticosteroids AdvReac Upset Verified 11/26/23 12:47 (Glucocorticoids) Stomach morphine AdvReac Nausea Verified 11/26/23 12:47 Ddxhrfn-HIU-PaV Reductase AdvReac Nausea Verified 11/26/23 12:47 Inhibitor [Ltllpis-Bmn-Gqk Reductase Inhibitor] Family History Mother Cancer CAD [...] 4 EF 5 4 WE l WF Cyanide Pot Hardener 5 5 HF 3 4 KE 4 [...] % (Auto) 56.3, Lymph % (Auto) 28.5, [place] % (Auto) 12.7 H, Eos % (Auto) [...] Clarity Clear, Urine pH 6.5, Ur Specific Logan 1.015, Urine Protein 15 H, Urine Glucose [...] 22:00 Apixaban 5 Mg Tablet PO BID [facility] Baclofen 20 mg 12/02/23 12:45 Baclofen 10 Mg Tablet PO Q8 [facility] Cholecalciferol 125 mcg 12/03/23 10:00 Cholecalciferol (Vit D3) 125 Mcg Capsule (5,000 Units) PO DAILY [facility] Clopidogrel Bisulfate 75 mg 12/03/23 10:00 Clopidogrel Bisulfate 75 Mg Tablet PO DAILY [facility] Docusate Sodium 100 mg 12/02/23 12:37 Docusate Sodium 100 Mg Capsule PO BID PRN PRN Constipation Gabapentin 800 mg 12/02/23 12:45 Gabapentin 800 Mg Tablet PO TIDCM [facility] Guaifenesin 1 tablet 12/02/23 22:00 Guaifenesin/D-Methorphan Tab.Sr.12h PO Q12 [facility] Guaifenesin 20 ml 12/02/23 12:37 Guaifenesin 10 Ml Udc (200mg/10ml) PO Q4H PRN PRN COUGH Potassium Chloride/Dextrose/Sod Cl 20 meq in 1,000 mls @ 100 mls/hr 12/02/23 12:37 IV 12/03/23 08:36 .Q10H VIMAL Ceftriaxone Sodium 1 gm in 50 mls @ 100 mls/hr 12/02/23 12:37 Rocephin IV 12/09/23 12:38 Q24 [facility] Levothyroxine Sodium 50 mcg 12/03/23 06:00 Levothyroxine 50 Mcg Tablet PO DAILY@0600 [facility] Lisinopril 5 mg 12/03/23 10:00 Lisinopril 5 Mg Tablet PO DAILY [facility] Protocol Melatonin 3 mg 12/02/23 12:37 Melatonin 3 Mg Tablet PO QHS PRN PRN INSOMNIA Metoprolol Tartrate 12.5 mg 12/02/23 22:00 Metoprolol Tartrate 25 Mg Tablet PO BID [facility] Protocol Nitroglycerin 0.4 mg 12/02/23 12:37 Nitroglycerin [...] Arleen Estrada DO; Keyona Davidson MD~ Signed [facility] Work Phone: 1(181) 440-974901-14-2024 Discharge summary Author [facility] December 02, 2023 1:21pm Note Date/Time December 02, 2023 8 :23am [facility] Medical Records Department [address] [place] [address] Emergency Department Summary 12/02/23 MR#: [id number] Acct: [id number] Name: ANGÉLICA YO Rep #:[id number] 6 : 1955 68 From: Gabriella Green PCP: Dr. Daron Benton MD Status:ADM IN Location: [address] History of Present Illness Chief Complaint: [...] any urinary symptoms. Her neurologist is in [place]. [facility] Medical History Angina pectoris Bilateral carotid [...] Nausea/Vom/ Verified 11/26/23 12:47 Diarrhea aspirin AdvReac "I'M ON Verified 11/26/23 12:47 BLOOD THINNERS" codeine AdvReac Nausea Verified 11/26/23 12:47 Corticosteroids AdvReac Upset Verified 11/26/23 12:47 (Glucocorticoids) Stomach morphine AdvReac Nausea Verified 11/26/23 12:47 Ndzvape-WYV-TaO Reductase AdvReac Nausea Verified 11/26/23 12:47 Inhibitor [Yavusiy-Suu-Dcq Reductase Inhibitor] Family History Mother Cancer CAD [...] off the bed. Is able to do gnxnto-uq-yhck but has bilateral ataxia with it. Too [...] to touch my finger her nose with arimpe-ep-qdqc. Her symptoms started at least 24 hours [...] % (Auto) 56.3 Lymph % (Auto) 28.5 [place] % (Auto) 12.7 H Eos % (Auto) [...] Clarity Clear Urine pH 6.5 Ur Specific Logan 1.015 Urine Protein 15 H Urine Glucose [...] 8:45 EST Reading Location ID and State: [facility] Tel , Service support , Chest X-Ray 12/02/23 07:28 IMPRESSION: Minimal infiltrate or atelectasis of the right lower lobe. Electronically Signed: Chago Mcintyre MD at 9:06 EST Reading Location ID and State: [facility] Tel , Service support , Rhythm Strip [...] Multiple sclerosis Disposition Disposition: Acute Care Hospital [facility] Discharge Date/Time: 12/02/23 12:36 What to do if you have Problems For any increased pain, shortness of breath, bleeding, nausea or vomiting, chestpain, or any unexpected problems, contact your Primary Care Provider. Call [facility] ([phone]) or report to the closest Emergency Room. Call 911 if necessary. 12/02/23 1321 <Electronically signed by Gabriella Simpson DO> Cosigner Signature (if applicable): CC: Dr. Daron Benton MD ~ Signed [facility] Work Phone: 1(219) 568-454701-14-2024 History and physical note Author Roman Mckeon [facility] December 02, 2023 11:53am Note Date/Time December 02, 2023 1 1:43am [facility] Medical Records Department [address] [place] [address] H&P Exam - Hospitalist 12/02/23 1140 MR#: [id number] Acct: [id number] Name: ANGÉLICA YO Rep #:[id number] 9 : 1955 68 From: Roman Mckeon MD PCP: Dr. Daron Benton MD Status:ADM IN Location: MS3 [id number] HPI - General General Date of Admission: [...] to a monitored bed for further management [facility] Medical History Angina pectoris Bilateral carotid [...] Nausea/Vom/ Verified 11/26/23 12:47 Diarrhea aspirin AdvReac "I'M ON Verified 11/26/23 12:47 BLOOD THINNERS" codeine AdvReac Nausea Verified 11/26/23 12:47 Corticosteroids AdvReac Upset Verified 11/26/23 12:47 (Glucocorticoids) Stomach morphine AdvReac Nausea Verified 11/26/23 12:47 Eunornu-PJF-IaG Reductase AdvReac Nausea Verified 11/26/23 12:47 Inhibitor [Kewyxmh-Lrh-Qgn Reductase Inhibitor] Family History Mother Cancer CAD [...] % (Auto) 56.3, Lymph % (Auto) 28.5, [place] % (Auto) 12.7 H, Eos % (Auto) [...] Clarity Clear, Urine pH 6.5, Ur Specific Logan 1.015, Urine Protein 15 H, Urine Glucose [...] 18 minutes. Charges/Coding Visit Charges Inpatient E&M: 94163 Init Hosp L3 Procedures Hospitalists Procedures: 47221 Advncd Care Plan 30 Min 12/02/23 1153 <Electronically signed by Roman Mckeon MD> Cosigner Signature (if applicable): CC: Dr. Roman Mckeon MD; Dr. Daron Benton MD~ Signed [facility] Work Phone: 1(585) 308-836101-09-2024 Discharge summary Author Ramírez Onofre [facility] November 27, 2023 11:55am Note Date/Time November 27, 2023 9: 40am [facility] Medical Records Department [address] [place] [address] Emergency Department Summary 11/27/23 MR#: [id number] Acct: [id number] Name: ANGÉLICA YO Rep #:[id number] 3 : 1955 68 From: Ramírez Onofre [...] Prior similar symptoms: No Recent Illness[facility] Medical History Angina pectoris Bilateral carotid [...] Nausea/Vom/ Verified 11/26/23 12:47 Diarrhea aspirin AdvReac "I'M ON Verified 11/26/23 12:47 BLOOD THINNERS" codeine AdvReac Nausea Verified 11/26/23 12:47 Corticosteroids AdvReac Upset Verified 11/26/23 12:47 (Glucocorticoids) Stomach morphine AdvReac Nausea Verified 11/26/23 12:47 Mfemeug-ZDB-PmS Reductase AdvReac Nausea Verified 11/26/23 12:47 Inhibitor [Cnmlxmf-Kcu-Orp Reductase Inhibitor] Family History Mother Cancer CAD [...] moving all 4 extremities. 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 Dorsi and plantarflexion [...] 71.7 H Lymph % (Auto) 16.8 L [place] % (Auto) 9.9 Eos % (Auto) 0.4 [...] rate of 50 no acute signs of MN or ischemia. No significant change from November [...] your Primary Care Provider. Call [facility] ([phone]) or report to the closest Emergency Room. Call 911 if necessary. 11/27/23 1155 <Electronically signed by Ramírez Onofre MD> Cosigner Signature (if applicable): CC: Dr. Daron Benton MD ~ Signed [facility] Work Phone: 1(644) 224-444901-03-2024 Discharge summary Author Sachin Murillo [facility] November 21, 2023 9:07am Note Date/Time November 21, 2023 8: 56am [facility] Medical Records Department [address] [place] [address] Instructions for Home/Discharge Instructions 11/21/23 0855 MR#: [id number] Acct: [id number] Name: ANGÉLICA YO Rep #:[id number] : 1955 68 From: Sachin chan [...] MD; Dr. Daron Benton MD ~ Signed [facility] Work Phone: 1(512) 487-196501-02-2024 Progress note Author Sachin Murillo [facility] November 20, 2023 10:23am Note Date/Time November 20, 2023 10 :23am [facility] Medical Records Department [address] [place] [address] Progress Note - Hospitalist 11/20/23 1021 MR#: [id number] Acct: [id number] Name: ANGÉLICA YO Rep #:[id number] 6 : 1955 68 From: Sachin chan MD PCP: Dr. Daron Benton MD Status:ADM IN Location: [place] [address] Subjective Subjective Still feels fatigued and unwell [...] 81.9 H, Lymph % (Auto) 5.9 L, [place] % (Auto) 9.8, Eos % (Auto) 0.1, [...] mmHg. Ordering Physician: Sommer Resendiz Referring Physician: aDron Benton Performed By: Noa Peace, MARY, RVT [...] DVT: SCDs Charges/Coding Visit Charges Inpatient E&M: 42422 Subs Hosp L2 11/20/23 1023 <Electronically signed by Sachin Murillo MD> Cosigner Signature (if applicable): CC: ~ Signed [facility] Work Phone: 1(258) 666-764601-01-2024 Progress note Author Sachin Murillo [facility] November 19, 2023 10:52am Note Date/Time November 19, 2023 10 :52am [facility] Medical Records Department [address] [place] [address] Progress Note - Hospitalist 11/19/23 1046 MR#: [id number] Acct: [id number] Name: ANGÉLICA YO Rep #:[id number] 6 : 1955 68 From: Sachin chan MD PCP: Dr. Daron Benton MD Status:ADM IN Location: [place] [address]- Subjective Subjective Doing well, no issues overnight. [...] % (Auto) 66.4, Lymph % (Auto) 19.4, [place] % (Auto) 12.9 H, Eos % (Auto) [...] Clarity Clear, Urine pH 6.0, Ur Specific Logan 1.015, Urine Protein Negative, Urine Glucose (UA) [...] (Auto) 67.7, Lymph % (Auto) 17.1 L, [place] % (Auto) 13.3 H, Eos % (Auto) [...] EST Reading Location ID and State: [address] [place] [address] Tel , Service support , Physical Exam [...] DVT: SCDs Charges/Coding Visit Charges Inpatient E&M: 06561 Subs Hosp L2 11/19/23 1052 <Electronically signed by Sachin Murillo MD> Cosigner Signature (if applicable): CC: ~ Signed [facility] Work Phone: 1(755) 996-571812-31-2023 History and physical note Author Sommer Resendiz [facility] November 18, 2023 8:55pm Note Date/Time November 18, 2023 2:14pm [facility] Medical Records Department [address] [place] [address] H&P Exam - Hospitalist 11/18/23 1413 MR#: [id number] Acct: [id number] Name: ANGÉLICA YO Rep #:[id number] 5 : 1955 68 From: Sommer Resendiz MD PCP: Dr. Daron Benton MD Status:ADM IN Location: [place] [address] HPI - General General Date of Admission: [...] injury associated to now represents to the [facility] ED on 11/18/23 with history of [...] Nausea/Vom/ Verified 11/15/23 11:27 Diarrhea aspirin AdvReac "I'M ON Verified 11/15/23 11:27 BLOOD THINNERS" codeine AdvReac Nausea Verified 11/15/23 11:27 Corticosteroids AdvReac Upset Verified 11/15/23 11:27 (Glucocorticoids) Stomach morphine AdvReac Nausea Verified 11/15/23 11:27 Ernxjrd-HMT-CuE Reductase AdvReac Nausea Verified 11/15/23 11:27 Inhibitor [Cogfnhg-Vkn-Egi Reductase Inhibitor] Family History Mother Cancer CAD [...] % (Auto) 66.4, Lymph % (Auto) 19.4, [place] % (Auto) 12.9 H, Eos % (Auto) [...] Clarity Clear, Urine pH 6.0, Ur Specific Logan 1.015, Urine Protein Negative, Urine Glucose (UA) [...] injury associated to now represents to the [facility] ED on 11/18/23 with history of [...] Code status. Charges/Coding Visit Charges Inpatient E&M: 98356 Init Hosp L3 11/18/232054 <Electronically signed by Sommer Resendiz MD> Cosigner Signature (if applicable): CC: Dr. Sommer Resendiz MD; Dr. Daron Benton MD~ Signed [facility] Work Phone: 1(757) 520-850512-31-2023 Discharge summary Author Michele Kebede [facility] November 18, 2023 3:08pm Note Date/Time November 18, 2023 12:03pm [facility] Medical Records Department [address] [place] [address] Emergency Department Summary 11/18/23 MR#: [id number] Acct: [id number] Name: ANGÉLICA YO Rep #:[id number] 0 : 1955 68 From: Michele Kebede [...] states she has never had atrial fibrillation. [facility] Medical History Angina pectoris Bilateral carotid [...] Nausea/Vom/ Verified 11/15/23 11:27 Diarrhea aspirin AdvReac "I'M ON Verified 11/15/23 11:27 BLOOD THINNERS" codeine AdvReac Nausea Verified 11/15/23 11:27 Corticosteroids AdvReac Upset Verified 11/15/23 11:27 (Glucocorticoids) Stomach morphine AdvReac Nausea Verified 11/15/23 11:27 Xdoyaiy-ZAM-IjG Reductase AdvReac Nausea Verified 11/15/23 11:27 Inhibitor [Eaagakg-Dsx-Tal Reductase Inhibitor] Family History Mother Cancer CAD [...] % (Auto) 66.4 Lymph % (Auto) 19.4 [place] % (Auto) 12.9 H Eos % (Auto) [...] Clarity Clear Urine pH 6.0 Ur Specific Logan 1.015 Urine Protein Negative Urine Glucose (UA) [...] EST Reading Location ID and State: [address] [place] [address] Tel , Service support , EKG Initial [...] Influenza A Disposition Disposition: Acute Care Hospital [facility] What to do if you have Problems For any increased pain, shortness of breath, bleeding, nausea or vomiting, chestpain, or any unexpected problems, contact your Primary Care Provider. Call [facility] ([phone]) or report to the closest Emergency Room. Call 911 if necessary. 11/18/23 3389 <Electronically signed by Michele Kebede MD> Cosigner Signature (if applicable): CC: Dr. Daron Benton MD ~ Signed [facility] Work Phone: 1(194) 912-707212-31-2023 Discharge summary Author Michele Kebede [facility] November 18, 2023 3:08pm Note Date/Time November 18, 2023 12:03pm [facility] Medical Records Department [address] [place] [address] Emergency Department Summary 11/18/23 MR#: [id number] Acct: [id number] Name: ANGÉLICA YO Rep #:[id number] 0 : 1955 68 From: Michele Kebede [...] states she has never had atrial fibrillation. [facility] Medical History Angina pectoris Bilateral carotid [...] Nausea/Vom/ Verified 11/15/23 11:27 Diarrhea aspirin AdvReac "I'M ON Verified 11/15/23 11:27 BLOOD THINNERS" codeine AdvReac Nausea Verified 11/15/23 11:27 Corticosteroids AdvReac Upset Verified 11/15/23 11:27 (Glucocorticoids) Stomach morphine AdvReac Nausea Verified 11/15/23 11:27 Rdgayhm-BSA-NxN Reductase AdvReac Nausea Verified 11/15/23 11:27 Inhibitor [Pojlznx-Xtu-Cjg Reductase Inhibitor] Family History Mother Cancer CAD [...] % (Auto) 66.4 Lymph % (Auto) 19.4 [place] % (Auto) 12.9 H Eos % (Auto) [...] Clarity Clear Urine pH 6.0 Ur Specific Logan 1.015 Urine Protein Negative Urine Glucose (UA) [...] Influenza A Disposition Disposition: Acute Care Hospital [facility] What to do if you have Problems For any increased pain, shortness of breath, bleeding, nausea or vomiting, chestpain, or any unexpected problems, contact your Primary Care Provider. Call [facility] ([phone]) or report to the closest Emergency Room. Call 911 if necessary. 11/18/23 1508 <Electronically signed by Michele Kebede MD> Cosigner Signature (if applicable): CC: Dr. Daron Benton MD ~ Signed [facility] Work Phone: 1(996) 500-104712-28-2023 History and physical note Author Sommer Resendiz [facility] November 15, 2023 3:44pm Note Date/Time November 15, 2023 3:14pm [facility] Medical Records Department [address] [place] [address] H&P Exam - Hospitalist 11/15/23 1512 MR#: [id number] Acct: [id number] Name: ANGÉLICA YO Rep #:[id number] : 1955 68 From: Sommer Resendiz MD PCP: Dr. Daron Benton MD Status:ADM IN Location: [facility] CW666-2 HPI - General General Date of Admission: 11/15/23 Date of Service: 11/15/23 Chief Complaint: Poor intake, malaise, fatigue, weakness, N/V/D HPI Narrative The patient is a 68 y/o F w/ PMHx: Hx Cerebral aneurysm, Chronic pain syndrome, HTN, HLD, Hx TIA, Multiple Sclerosis, Nonobstructive CAD, Psoriatic arthritis, PAD, NS SVT, GERD, Hypothyroidism, Carotid disease, Tobacco use who presents to the [facility] ED on 11/15/23 with history of [...] x 1 and 1 L normal saline. [facility] Medical History Angina pectoris Bilateral carotid [...] Nausea/Vom/ Verified 11/15/23 11:27 Diarrhea aspirin AdvReac "I'M ON Verified 11/15/23 11:27 BLOOD THINNERS" codeine AdvReac Nausea Verified 11/15/23 11:27 Corticosteroids AdvReac Upset Verified 11/15/23 11:27 (Glucocorticoids) Stomach morphine AdvReac Nausea Verified 11/15/23 11:27 Bqgotyy-ACE-BuG Reductase AdvReac Nausea Verified 11/15/23 11:27 Inhibitor [Enjybxh-Ija-Anf Reductase Inhibitor] Family History Mother Cancer CAD [...] 70.4 H, Lymph % (Auto) 14.3 L, [place] % (Auto) 14.5 H, Eos % (Auto) [...] 13:03 EST Reading Location ID and State: [address] [place] [address] Tel , Service support , Assessment & Plan Assessment/Plan (1) Influenza A: (2) Acute kidney injury: PLAN: Plan The patient is a 68 y/o F w/ PMHx: Hx Cerebral aneurysm, Chronic pain syndrome, HTN, HLD, Hx TIA, Multiple Sclerosis, Nonobstructive CAD, Psoriatic arthritis, PAD, NS SVT, GERD, Hypothyroidism, Carotid disease, Tobacco use who presents to the [facility] ED on 11/15/23 with history of [...] 16 minutes. Charges/Coding Visit Charges Inpatient E&M: 68096 Init Hosp L3 Procedures Hospitalists Procedures: 97384 Advncd Care Plan 30 Min 11/15/23 1544 <Electronically signed by Sommer Resendiz MD> Cosigner Signature (if applicable): CC: Dr. Sommer Resendiz MD; Dr. Daron Benton MD~ Signed [facility] Work Phone: [phone]) 352-691812-28-2023 Discharge summary Author Michele Kebede [facility] November 15, 2023 3:10pm Note Date/Time November 15, 2023 12:02pm [facility] Medical Records Department [address] [place] [address] Emergency Department Summary 11/15/23 MR#: [id number] Acct: [id number] Name: ANGÉLICA YO Rep #:[id number] 2 : 1955 68 From: Michele Kebede [...] because she cannot take the strong medications. [facility] Medical History Angina pectoris Bilateral carotid [...] Nausea/Vom/ Verified 11/15/23 11:27 Diarrhea aspirin AdvReac "I'M ON Verified 11/15/23 11:27 BLOOD THINNERS" codeine AdvReac Nausea Verified 11/15/23 11:27 Corticosteroids AdvReac Upset Verified 11/15/23 11:27 (Glucocorticoids) Stomach morphine AdvReac Nausea Verified 11/15/23 11:27 Vdjcsnu-OIV-FvL Reductase AdvReac Nausea Verified 11/15/23 11:27 Inhibitor [Spdwhaj-Srf-Dgu Reductase Inhibitor] Family History Mother Cancer CAD [...] 70.4 H Lymph % (Auto) 14.3 L [place] % (Auto) 14.5 H Eos % (Auto) [...] ventricular ectopy. No acuteST elevation or depression. GA interval, QRS duration are normal. QTc is [...] Provider] - Disposition Disposition: Acute Care Hospital [facility] What to do if you have Problems For any increased pain, shortness of breath, bleeding, nausea or vomiting, chestpain, or any unexpected problems, contact your Primary Care Provider. Call [facility] ([phone]) or report to the closest Emergency Room. Call 911 if necessary. 11/15/23 1510 <Electronically signed by Michele Kebede MD> Cosigner Signature (if applicable): CC: Dr. Daron Benton MD ~ Signed [facility] Work Phone: 1(577) 714-200512-28-2023 Discharge summary Author Michele Kebede [facility] November 15, 2023 3:10pm Note Date/Time November 15, 2023 12:02pm [facility] Medical Records Department [address] [place] [address] Emergency Department Summary 11/15/23 MR#: [id number] Acct: [id number] Name: ANGÉLICA YO Rep #:[id number] 2 : 1955 68 From: Michele Kebede [...] at home and those have been low. Kaliny have been adjusting her medicine because she [...] because she cannot take the strong medications. [facility] Medical History Angina pectoris Bilateral carotid [...] Nausea/Vom/ Verified 11/15/23 11:27 Diarrhea aspirin AdvReac "I'M ON Verified 11/15/23 11:27 BLOOD THINNERS" codeine AdvReac Nausea Verified 11/15/23 11:27 Corticosteroids AdvReac Upset Verified 11/15/23 11:27 (Glucocorticoids) Stomach morphine AdvReac Nausea Verified 11/15/23 11:27 Yzgxdkz-WMX-LfP Reductase AdvReac Nausea Verified 11/15/23 11:27 Inhibitor [Rumssql-Hub-Qwy Reductase Inhibitor] Family History Mother Cancer CAD [...] 70.4 H Lymph % (Auto) 14.3 L [place] % (Auto) 14.5 H Eos % (Auto) [...] ventricular ectopy. No acuteST elevation or depression. GA interval, QRS duration are normal. QTc is [...] Care Provider] - Disposition Disposition: Acute Care [facility] What to do if you have Problems For any increased pain, shortness of breath, bleeding, nausea or vomiting, chestpain, or any unexpected problems, contact your Primary Care Provider. Call [facility] ([phone]) or report to the closest Emergency Room. Call 911 if necessary. 11/15/23 1510 <Electronically signed by Michele Kebede MD> Cosigner Signature (if applicable): CC: Dr. Daron Benton MD ~ Signed [facility] Work Phone: 1(396) 561-471911-17-2023 History of Present illness Narrative* Kristopher Main MD - 10/05/2023 3:00 PM EST Images from the original note were not included. [facility] [address] [facility] [address] Dept: [phone] Dept Loc: [phone] Patient was seen today via Telehealth by [...] that they are currently in the state [facility]. If the patient is a minor,permission has [...] 04/04/2023 [APTT} FLP: No results found for: "CHLPL", "TRIG", "HDL", "LDLCALC", "LDLDIRECT" TSH: No results found for: "TSH" VITAMIN B12: No results found for: "FEMYJWZR67" No results found for: "PHENYTOIN", "PHENOBARB", "VALPROATE", "CBMZ" No results found for: "LEVETIRACETA", "FERRITIN", "CRP", "DENNIS", "ANCA" FERRITIN: No results found for: "FERRITIN" @RESULTINGLABINFO@ No components found for: "TOPIRA" No results found for: "CHRISTIANO", "IMMUNOGLOBUL", "OLIGOBANDS" No results found for: "ISA56NR", "HEPCAB" No results found for: "CRP", "ANATITER", "ANCA" ---- @LASTAPPOINTMENTTHISPROV@ ECG 12 lead SINUS BRADYCARDIA PROBABLE LEFT ATRIAL ABNORMALITY No previous ECG available for comparison Electronically Signed On 04-05-2023 7:42:10 EDT by Juvenal Benton Patient Name: ANGÉLICA YO : 1955 [facility]#: [id number] Exam Date/Time: 04/04/2023 15:32 Procedure: CT HEAD [...] volume rendered reformats were obtained using a [employer] workstation. Review of the axial source data [...] of the major intracranial arteries at the [place] of [place]. 6. No hemodynamically significant narrowing [...] and arranging for studies. documented in this [facility]11-17-2023 Telephone encounter Note* Telephone Encounter - Yanely Kwon MA - 10/05/2023 12:58 PM EST Patient has been scheduled and records are being faxed over. [facility]25[facility] Miscellaneous Notes* Telephone Encounter - Yanely Kwon MA - 10/05/2023 12:58 PM EST Patient has been scheduled and records are being faxed over. * Telephone Encounter - Kristopher Main MD - 10/05/2023 12:36 PM EST Get records from [facility]. OK to add her on at 3 PM as a real or a virtual visit * Telephone Encounter - Ольга Pa - 10/05/2023 9:20 AM EST Name of caller: Angélica Contact phone number: [phone] Relationship to Patient: patient Provider: DR Main [...] return their call: Yes documented in this [facility]11-17-2023 Telephone encounter Note* Telephone Encounter - Kristopher Main MD - 10/05/2023 12:36 PM EST Get records from [facility]. OK to add her on at 3 PM as a real or a virtual visit [facility] [id number] Telephone encounter Note* Telephone Encounter - Ольга Pa - 10/05/2023 9:20 AM EST Name of caller: Angélica Contact phone number: [phone] Relationship to Patient: patient Provider: DR Main [...] business hours to return their call: Yes [facility] [id number] Telephone encounter Note* Telephone Encounter - Annalee Ram - 06/15/2023 9:41 AM EDT Medication name: baclofen (Lioresal) 20 MG tablet [[id number]] Order Details Dose: 20 mg Route: Oral [...] Original Order: baclofen (Lioresal) 20 MG tablet [[id number]] Providers Ordering and Authorizing Provider: Kristopher Main MD NEGRA #: [id number] Ordering User: Kristopher Main MD Pharmacy [id number] - [facility] 1955 [facility] [address] [place] [id number] NEGRA #: -- Date of last office visit: 04/04/23 Date of next office visit: None Date of last refill: (see medication tab): 10/05/22 Updated/Validated preferred pharmacy: Yes Patient instructed to contact the pharmacy prior to picking up the medication: Yes [id number] Miscellaneous Notes* Telephone Encounter - Annalee Ram - 06/15/2023 9:41 AM EDT Medication name: baclofen (Lioresal) 20 MG tablet [[id number]] Order Details Dose: 20 mg Route: Oral [...] Original Order: baclofen (Lioresal) 20 MG tablet [[id number]] Providers Ordering and Authorizing Provider: Kristopher Main MD NEGRA #: [id number] Ordering User: Kristopher Main MD Pharmacy [id number] [address] NEGRA #: -- Date of last office visit: 04/04/23 Date of next office visit: None Date of last refill: (see medication tab): 10/05/22 Updated/Validated preferred pharmacy: Yes Patient instructed to contact the pharmacy prior to picking up the medication: Yes documented in [facility] HospitalKgnqdj12-09-7061 Telephone encounter Note* Telephone Encounter - Kristopher Main MD - 06/04/2023 4:04 PM EDT Rx renewed [facility] HospitalYksmhq31-25-0579 Miscellaneous Notes* Telephone Encounter - Kristopher Main [...] up the medication: Yes documented in this [facility]SCl[facility] HospitalSeafyh68-15-4197 Telephone encounter Note* Telephone Encounter - Bina Snow - 06/04/2023 3:31 PM EDT Please advise. [place] [id number] Telephone encounter Note* Telephone Encounter - Nut Crackerpretty Crook - 06/04/2023 9:59 AM EDT Medication [...] picking up the medication: Yes [facility] HospitalSkijig70-58-8048 Hospital Discharge instructions Additional Instructions 1. Do not place an Jean-Claude wrap on your foot this probably contributed to the swelling. 2. Apply ice to calf 6-10 times a day for the next 3 to [facility] Work Phone: 1(673) 555-480212-22-2022 Hospital Discharge instructions Patient Education 11/09/2022 12:48:32 [...] and water are not available, use hand equine vet. ?Change your dressing as told by your [...] the contrast dye from your body. Take njga-dij-iwsoieg and prescription medicines only as told by [...] 05/24/2006 Document Revised: 10/18/2018 Document Reviewed: 10/10/2017 [employer] Patient Education 2020 [employer]. 11/09/2022 12:48:21 Moderate Conscious Sedation, Adult, Care [...] until you are awake and alert. Take aikd-iwk-pqrxcwl and prescription medicines only as told by [...] 08/26/2014 Document Revised: 10/18/2018 Document Reviewed: 02/24/2017 [employer] Patient Education 2020 [employer]. Follow Up Care 10/27/2022 15:58:56 With:TYE BARNETT MD, [facility], Surgery, Vascular Surgeons Address: [facility] [address] [address] When: Unknown Comments:Follow-up as scheduled [facility] 12-22-2022 Summary of episode note Discharge Instructions Thank you for allowing [facility] to assist you with your healthcare needs. The following is importantdischarge information regarding your hospital visit. What to do next Follow Up Appointments Follow Up with TYE BARNTET MD, [facility], Surgery, Vascular Surgeons When Why: Follow-up as scheduled Where: [facility] [address] [address] The Following Activity and Diet [...] and water are not available, use hand equine vet. ? Change your dressing as told by [...] the contrast dye from your body. Take flhw-dlu-htdwddz and prescription medicines only as told by [...] 05/24/2006 Document Revised: 10/18/2018 Document Reviewed: 10/10/2017 [employer] Patient Education 2020 [employer] Moderate Conscious Sedation, Adult, Care After [...] until you are awake and alert. Take dyvi-gmr-jobwofz and prescription medicines only as told by [...] 08/26/2014 Document Revised: 10/18/2018 Document Reviewed: 02/24/2017 [employer] Patient Education 2020 [employer] Additional Information VACCINATE! IT SAVES LIVES! Members of the community who have not yet received the COVID-19 vaccine and would like to receive it can visit one of [facility] vaccine clinics. There are many vaccine clinic locations within the [facility]. For locations and available times, please visit [email or web address]/. It is important to note that some COVID mobile vaccine clinics are held outdoors and may be canceled in rainy or stormy conditions. To learn more about pediatric vaccinations (ages 5-11), we invite you to visit the [facility] webpage. https://[email or web address].[email or web address]/pages/0468-Uqhzu-Kpcnwrrgahx-Pggentghjv-Egejh-Zuf stions.htmlTo learn more about the COVID-19 vaccine, we invite you to visit the [facility] website for a list of frequently asked questions. [email or web address].[email or web address]/assets/Uqyqggwf-quf-Jutdyhhw/yohvp-Bmjdbew-Pbeiiqhgww _Asked-Questions.pdf [facility] Patient Portal Access Instructions: Stay connected with your healthcare team and access your personal medical information anytime with the [facility] Patient [facility].If you would like a full copy of your medical records, please contact the [facility] Medical Records Department, Sunday through Sunday between 8a.m. and 4:30p.m. Please follow the directions below to access the portal: 1.Access the email account you provided upon registration to the [facility].2.Look for an invitation email from [facility].3.Open the email and access the invitation link: Accept Invitation to [facility]4.Fill in the required duarte to create your account. Sign into www.[email or web address] Gateway with your username and password that you [...] you will allow to register on the [facility] [employer] Patient Portal for access to your information. You can also access the [facility] Patient Portal on the [employer]. Simply click on "Health Records" under "HealthData" and then click on the [facility] logo. [...] Call your local pharmacy or go to http://bit.ly/5V8Di3m to find one close to you.3.Make use of household items: Use cat litter or old coffee grounds to dispose medications if other options arenot available. Mix your drugs with these household products, seal them in an airtight container andthrow it into the garbage. Call [facility]: [phone] to be sure your drugs can be [...] aware that I should contact my doctor. Patient/Rollout Manager Signature: Date/Time: Relationship to Patient: Witness Name/Signature: Date/Time: [facility] HospitalXcrxwaiq64-70-5172 Note ORIGINAL Images acquired, not reported on this accession number. [facility] [id number] Note ORIGINAL Images acquired, not reported on this accession number.[facility] 04-12-2021 NoteHNO ID: [id number] Author: RT Sandra(R) Service: ? Author Type: Real Estate Director Type: Progress Notes Filed: 04/12/2021 2:14 PM [...] Yo DATE: April 12, 2021 TIME: 2:13 [facility]03-24-2021 NoteHNO ID: [id number] Author: Meli Gore Service: ? Author Type: [...] of wound at high risk for bone exposure.[facility]01-07-2021 History of Present illness Narrative* Tammy Cornejo [...] 25, 2020 3:08 PM documented [facility] note Author Noa Raza [facility] November 16, 2023 10:43am Note Date/Time November 16, 2023 10:43am [facility] Medical Records Department [address] [place] [address] Counseling Note - Pharmacy 11/16/23 1043 MR#: [id number] Acct: [id number] Name: ANGÉLICA YO Rep #:[id number] 0 : 1955 68 From: Noa Raza PCP: Dr. Daron Benton MD Status:ADM IN Location: [place] [address] [facility] Service has performed discharge [...] Signature (if applicable): Date CC: ~ Signed [facility] Work Phone: Consult note Author Christel Miranda [facility] November 21, 2023 11:56am Note Date/Time November 21, 2023 11 :56am [facility] Medical Records Department [address] [place] [address] Counseling Note - Pharmacy 11/21/23 1155 MR#: [id number] Acct: [id number] Name: ANGÉLICA YO Rep #:[id number] 2 : 1955 68 From: Christel Miranda PCP: Dr. Daron Benton MD Status:ADM IN Location: [place] [address] Pharmacy [facility] Pharmacy Service has performed discharge medication reconciliation [...] Signature (if applicable): Date CC: ~ Signed [facility] Work Phone: Consult note Author Christel Miranda [facility] February 25, 2024 4:09pm Note Date/Time February 25, 2024 4:08 pm [facility] Medical Records Department [address] [place] [address] Counseling Note - Pharmacy 02/25/24 1607 MR#: [id number] Acct: [id number] Name: ANGÉLICA YO Rep #:[id number] 2 : 1955 68 From: Christel Miranda PCP: Dr. Daron Benton MD Status:ADM IN Y Location: [facility] [id number] Pharmacy [facility] Pharmacy Service has performed discharge medication reconciliation [...] Signature (if applicable): Date CC: ~ Signed [facility] Work Phone: Consult note Author Christel Miranda [facility] Note Date/Time April 22, 2025 4:00p [facility] Medical Records Department [address] [facility] [place] [address] Counseling Note - Pharmacy 04/22/25 1559 MR#: [id number] Acct: [id number] Name: ANGÉLICA YO Rep #:[id number] 8 : 1955 69 From: Christel Miranda PCP: Dr. Daron Benton MD Status:ADM IN Location: [place] [address] Pharmacy [facility] Counseling Pharmacy Service has performed [...] Signature (if applicable): Date CC: ~ Signed [facility] Work Phone: Discharge summary Author Hi Garcia [facility] November 16, 2023 10:38am Note Date/Time November 16, 2023 10:33am [facility] Medical Records Department [address] [place] [address] Instructions for Home/Discharge Instructions 11/16/23 1032 MR#: [id number] Acct: [id number] Name: ANGÉLICA YO Rep #:[id number] 1 : 1955 68 From: Hi Llanos [...] Provider: Hi Garcia Primary Care Provider: Daron Benotn Consulting Providers: Sommer Resendiz Discharge Orders/Prescriptions Prescriptions: [...] MD; Dr. Daron Benton MD ~ Signed [facility] Work Phone: Discharge summary Author Hi Jose [facility] November 16, 2023 10:51am Note Date/Time November 16, 2023 10:50am [facility] Medical Records Department [address] [place] [address] Discharge Summary 11/16/23 1043 MR#: [id number] Acct: [id number] Name: ANGÉLICA YO Rep #:[id number] 7 : 1955 68 From: Hi Llanos PCP: Dr. Daron Benton MD Status:ADM IN Location: [place] [address] Providers Date of Admission: 11/15/23 Date of [...] 70.4 H, Lymph % (Auto) 14.3 L, [place] % (Auto) 14.5 H, Eos % (Auto) [...] Sl. Cloudy, Urine pH 5.0, Ur Specific Logan 1.015, Urine Protein 15 H, Urine Glucose [...] Neut % (Auto) 57.7, Lymph % (Auto) 25.5,[place] % (Auto) 15.7 H, Eos % (Auto) [...] to go home. Visit Charges Inpatient E&M: 33099 Disch Hosp >30min 11/16/23 1051 <Electronically signed by Hi Garcia MD> Cosigner Signature (if applicable): CC: Dr. Daron Benton MD; Dr. Hi Garcia MD~ Signed [facility] Work Phone: Discharge summary Author Sachin Murillo [facility] November 21, 2023 11:01am Note Date/Time November 21, 2023 11 :01am [facility] Medical Records Department [address] [place] [address] Discharge Summary 11/21/23 1057 MR#: [id number] Acct: [id number] Name: ANGÉLICA YO Rep #:[id number] 1 : 1955 68 From: Sachin chan MD PCP: Dr. Daron Benton MD Status:ADM IN Location: [place] [address] Providers Date of Admission: 11/18/23 Primary Care [...] injury associated to now represents to the [facility] ED on 11/18/23 with history of [...] % (Auto) 62.0, Lymph % (Auto) 14.3L, [place] % (Auto) 18.8 H, Eos % (Auto) [...] Self Care Charges/Coding Visit Charges Inpatient E&M: 98537 Disch Hosp >30min 11/21/23 1101 <Electronically signed by Sachin Murillo MD> Cosigner Signature (if applicable): CC: Dr. Daron Benton MD; Dr. Sachin Murillo MD~ Signed [facility] Work Phone: Discharge summary Author Sachin Murillo [facility] December 07, 2023 2:21pm Note Date/Time December 07, 2023 2 :21pm [facility] Medical Records Department [address] [place] [address] Discharge Summary 12/07/23 1417 MR#: [id number] Acct: [id number] Name: ANGÉLICA YO Rep #:[id number] 0 : 1955 68 From: Sachin chan [...] of Tele-Neurology Consult: Yes 12/04/23 06:18 Consult: Doctor Of Optometry / Pulmonary Medicine Routine Consulting Provider: Intensivists/Pulmonary [...] 71.0 H, Lymph % (Auto) 17.9 L, [place] % (Auto) 9.8, Eos % (Auto) 0.1, [...] Deepika Graham; Maurilio Garland; Phil Terry; SARI MNEA; Jose Santos; Rhiannon Farris; Kt Friend; Angie [...] Health Service Charges/Coding Visit Charges Inpatient E&M: 49245 Disch Hosp >30min 12/07/23 1421 <Electronically signed by Sachin Murillo MD> Cosigner Signature (if applicable): CC: Dr. Daron Benton MD; Dr. Sachin Murillo MD~ Signed [facility] Work Phone: Discharge summary [facility] Note Date/Time June 03, 2025 7:47 am [facility] Medical Records Department [address] [place] [address] Emergency Department Summary 06/03/25 MR#: [id number] Acct: [id number] Name: ANGÉLICA YO Rep #:[id number] 3 : 1955 69 From: Yasmani Haynes [...] the persistent pain comes in for evaluation. [facility] Medical History Hypertensive emergency NSTEMI, initial episode of care Emphysema of lung Smoking greater than 30 pack years New onset atrial fibrillation TOL[place]O (dyspnea on exertion) Atherosclerotic heart disease of [place] coronary artery without angina pectoris Cardiac murmur [...] Nausea/Vom/ Verified 06/03/25 02:30 Diarrhea aspirin AdvReac "I'M ON Verified 06/03/25 02:30 BLOOD THINNERS" codeine AdvReac Nausea Verified 06/03/25 02:30 Corticosteroids AdvReac Upset Verified 06/03/25 02:30 (Glucocorticoids) Stomach morphine AdvReac Nausea Verified 06/03/25 02:30 Cnwypto-OFE-ZoW Reductase AdvReac Nausea Verified 06/03/25 02:30 Inhibitor (Bkrziwt-Nuu-Bgp Reductase Inhibitor) Family History Mother Cancer CAD [...] of blood. The case was discussed with fishing hand/Dr. Gonzalez. He states that with her anemia [...] (Auto) 69.4 Lymph % (Auto) 13.4 L [place] % (Auto) 14.0 H Eos % (Auto) [...] 03:20 IMPRESSION: Small right effusion. Reading Location: [place] [address] Chest x-ray is interpreted by the emergency medicine physician reveals a small right pleural effusion without acute infiltrate or pneumothorax Management Discussion w/another healthcare provider: Hospitalist and Relationship Advisor Discharge Plan Triage Chief Complaint: Edema ED Provider: Yasmani Haynes Dx/Rx/DC Orders Clinical Impression: Anemia, Congestive heart failure, Paroxysmal atrial fibrillation, Current use of long-term anticoagulation Prescriptions: No Action gabapentin 800 mg [...] MD [Primary Care Provider] - Print Language: French Disposition Disposition: Acute Care Hospital [facility] What to do if you have Problems For any increased pain, shortness of breath, bleeding, nausea or vomiting, chestpain, or any unexpected problems, contact your Primary Care Provider. Call [facility] ([phone]) or report to the closest Emergency Room. Call 911 if necessary. 06/03/25 0747 <Electronically signed by Yasmani Haynes DO> Cosigner Signature (if applicable): CC: Dr. Daron Benton MD ~ Signed [facility] Work Phone: Evaluation + Plan note No data available for this section [facility] Evaluation note* Diagnosis Onset Date Resolution Status Effusion of left knee joint acute Left knee DJD acute Psoriatic arthritis acute Chronic pain chronic Peripheral vascular occlusive disease chronic Bilateral carotid artery stenosis chronic Essential (primary) hypertension chronic Nonobstructive atherosclerosis of coronary artery chronic Peripheral vascular occlusive disease chronic [facility] Work Phone: Evaluation note* Diagnosis Onset Date Resolution Status Peripheral vascular occlusive disease chronic Bilateral carotid artery stenosis chronic Essential (primary) hypertension chronic Nonobstructive atherosclerosis of coronary artery chronic Peripheral vascular occlusive disease chronic Bilateral carotid artery stenosis chronic Essential (primary) hypertension chronic Nonobstructive atherosclerosis of coronary artery chronic Peripheral vascular occlusive disease [place] Work Phone: Evaluation note* Diagnosis Onset Date Resolution Status Cardiac murmur acute Bilateral carotid artery stenosis chronic Essential (primary) hypertension chronic Nonobstructive atherosclerosis of coronary artery chronic Peripheral vascular occlusive disease [place] Work Phone: Evaluation noteNo assessment information available [facility] Work Phone: Evaluation note* Diagnosis Onset Date Resolution Status Effusion of left knee joint acute Left knee DJD acute Psoriatic arthritis acute Cardiac murmur acute TOL[place]O (dyspnea on exertion) ac [place] Bilateral carotid artery stenosis chronic Essential (primary) hypertension chronic Nonobstructive atherosclerosis of coronary artery chronic Peripheral vascular occlusive disease chronic [facility] Work Phone: Evaluation note* Diagnosis Onset Date Resolution Status Effusion of left knee joint acute Left knee DJD acute Psoriatic arthritis acute Cardiac murmur acute [place]OL[place]O (dyspnea on exertion) ac [place] Bilateral carotid artery stenosis chronic Essential (primary) hypertension chronic Nonobstructive atherosclerosis of coronary artery chronic Peripheral vascular occlusive disease chronic Left knee DJD acute Psoriatic arthritis acute [facility] Work Phone: Evaluation note* Diagnosis Onset Date Resolution Status Effusion of left knee joint acute Left knee DJD acute Psoriatic arthritis acute Cardiac murmur acute [place]OL[place]O (dyspnea on exertion) ac [place] Bilateral carotid artery stenosis chronic Essential (primary) hypertension chronic Nonobstructive atherosclerosis of coronary artery chronic Peripheral vascular occlusive disease chronic Left knee DJD acute Psoriatic arthritis acute 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 Effusion of left knee joint acute Left knee DJD acute Psoriatic arthritis acute [facility] Work Phone: Evaluation note* Diagnosis Onset Date Resolution Status Left knee DJD acute Psoriatic arthritis acute 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 Effusion of left knee joint acute Left knee DJD acute Psoriatic arthritis acute [facility] Work Phone: Evaluation note* Diagnosis Onset Date Resolution Status 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 Effusion of left knee joint acute Left knee DJD acute Psoriatic arthritis acute Intercostal neuralgia acute Thoracic back pain acute [facility] Work Phone: Evaluation note* Diagnosis Onset Date Resolution Status Effusion of left knee joint acute Left knee DJD acute Psoriatic arthritis acute Intercostal neuralgia acute Thoracic back pain acute Psoriatic arthritis acute Thoracic back pain acute Multiple sclerosis chronic [facility] Work Phone: Evaluation note* Diagnosis Multiple sclerosis (HCC) Multiple sclerosis [facility] Diagnosis Multiple sclerosis (HCC) Multiple sclerosis [facility]* Diagnosis Onset Date Resolution Status Psoriatic arthritis acute Thoracic back pain acute Multiple sclerosis chronic Bilateral carotid artery stenosis chronic Essential (primary) hypertension chronic Nonobstructive atherosclerosis of coronary artery chronic Peripheral vascular occlusive disease chronic [facility] Work Phone: Evaluation note* Diagnosis Onset Date Resolution Status Bilateral carotid artery stenosis chronic Essential (primary) hypertension chronic Nonobstructive atherosclerosis of coronary artery chronic Peripheral vascular occlusive disease chronic [facility] Work Phone: Evaluation note* Diagnosis Multiple sclerosis (HCC)- Primary Multiple sclerosis Cerebrovascular disease, unspecified Primary hypertension Unspecified essential hypertension [facility] Diagnosis Onset Date Resolution Status Knee joint effusion acute [facility] Work Phone: Evaluation note* Diagnosis Onset Date Resolution Status Knee joint effusion acute Bilateral carotid artery stenosis chronic Essential (primary) hypertension chronic Nonobstructive atherosclerosis of coronary artery chronic Peripheral vascular occlusive disease chronic Acute hyponatremia acute Acute kidney injury acute Dehydration acute Influenza A acute [facility] Work Phone: Evaluation note* Diagnosis Onset Date Resolution Status Knee joint effusion acute Bilateral carotid artery stenosis chronic Essential (primary) hypertension chronic Nonobstructive atherosclerosis of coronary artery chronic Peripheral vascular occlusive disease chronic Acute hyponatremia acute Acute kidney injury acute Dehydration acute Influenza A acute Atrial fibrillation acute Chest pressure acute Elevated troponin acute Influenza A acute New onset atrial fibrillation acute [facility] Work Phone: Evaluation note* Diagnosis Onset Date Resolution Status Knee joint effusion acute Bilateral carotid artery stenosis chronic Essential (primary) hypertension chronic Nonobstructive atherosclerosis of coronary artery chronic Peripheral vascular occlusive disease chronic Acute kidney injury acute Acute hyponatremia resolved Dehydration resolved Atrial fibrillation acute Chest pressure acute Elevated troponin acute New onset atrial fibrillation acute [facility] Work Phone: Evaluation note* Diagnosis Onset Date Resolution Status Knee joint effusion acute Bilateral carotid artery stenosis chronic Essential (primary) hypertension chronic Nonobstructive atherosclerosis of coronary artery chronic Peripheral vascular occlusive disease chronic Acute kidney injury acute Acute hyponatremia resolved Dehydration resolved Atrial fibrillation acute Chest pressure acute Elevated troponin acute New onset atrial fibrillation acute Weakness acute [facility] Work Phone: Evaluation note* Diagnosis Onset [...] Dizziness acute Weakness acute Multiple sclerosis chronic [facility] Work Phone: Evaluation note* Diagnosis Multiple sclerosis (HCC)- Primary Multiple sclerosis Dizziness Dizziness and giddiness Imbalance Abnormality of gait Vision disturbance Unspecified visual disturbance [facility] Diagnosis Onset Date Resolution Status [...] (primary) hypertension chronic Peripheral vascular occlusive disease [place] Work Phone: Evaluation note* Diagnosis Multiple sclerosis (HCC) Multiple sclerosis [facility] Diagnosis Onset Date Resolution Status [...] (primary) hypertension chronic Peripheral vascular occlusive disease [place] Work Phone: Evaluation note* Diagnosis Onset Date [...] (primary) hypertension chronic Peripheral vascular occlusive disease [place] Work Phone: Evaluation note* Diagnosis Onset Date [...] symptoms of anemia resolved Symptomatic anemia resolved [facility] Work Phone: Evaluation note* Diagnosis Cough [facility] Diagnosis Other specified symptoms and signs involving the circulatory and respiratory systems- Primary Cerebrovascular disease, unspecified [facility]* Diagnosis Multiple sclerosis (HCC) Multiple sclerosis [facility] Diagnosis Multiple sclerosis (HCC)- Primary Multiple sclerosis Mild cognitive impairment Mild cognitive impairment, so stated Fatigue, unspecified type Deficiency of multiple nutrient elements Other nutritional deficiency documented [facility] this [facility]* Diagnosis Multiple sclerosis (HCC)- Primary Multiple sclerosis Dysphasia Other speech disturbance [facility]* Diagnosis Multiple sclerosis (HCC) Multiple [facility] Author Sommer Resendiz [facility] November 15, 2023 3:44pm Note Date/Time November 15, 2023 3:14pm [facility] Medical Records Department [address] [place] [address] H&P Exam - Hospitalist 11/15/23 1512 MR#: [id number] Acct: [id number] Name: ANGÉLICA YO Rep #:[id number] 3 : 1955 68 From: Sommer Resendiz MD PCP: Dr. Daron Benton MD Status:ADM [id number] - [facility] General Date of Admission: 11/15/23 Date of Service: 11/15/23 Chief Complaint: Poor intake, malaise, fatigue, weakness, N/V/D HPI Narrative The patient is a 68 y/o F w/ PMHx: Hx Cerebral aneurysm, Chronic pain syndrome, HTN, HLD, Hx TIA, Multiple Sclerosis, Nonobstructive CAD, Psoriatic arthritis, PAD, NS SVT, GERD, Hypothyroidism, Carotid disease, Tobacco use who presents to the [facility] ED on 11/15/23 with history of [...] x 1 and 1 L normal saline. [facility] Medical History Angina pectoris Bilateral carotid [...] Nausea/Vom/ Verified 11/15/23 11:27 Diarrhea aspirin AdvReac "I'M ON Verified 11/15/23 11:27 BLOOD THINNERS" codeine AdvReac Nausea Verified 11/15/23 11:27 Corticosteroids AdvReac Upset Verified 11/15/23 11:27 (Glucocorticoids) Stomach morphine AdvReac Nausea Verified 11/15/23 11:27 Mrqnwlu-BAF-GfG Reductase AdvReac Nausea Verified 11/15/23 11:27 Inhibitor [Rqdfmml-Cri-Kmd Reductase Inhibitor] Family History Mother Cancer CAD [...] 70.4 H, Lymph % (Auto) 14.3 L, [place] % (Auto) 14.5 H, Eos % (Auto) [...] disease, Tobacco use who presents to the [facility] ED on 11/15/23 with history of [...] 16 minutes. Charges/Coding Visit Charges Inpatient E&M: 84561 Init Hosp L3 Procedures Hospitalists Procedures: 38196 Advncd Care Plan 30 Min 11/15/23 1544 <Electronically signed by Sommer Resendiz MD> Cosigner Signature (if applicable): CC: Dr. Somemr Resendiz MD; Dr. Daron Benton MD~ Signed [facility] Work Phone: History and physical note Author Roman Mckeon [facility] December 02, 2023 11:53am Note Date/Time December 02, 2023 1 1:43am [facility] Medical Records Department [address] [place] [address] H&P Exam - Hospitalist 12/02/23 1140 MR#: [id number] Acct: [id number] Name: ANGÉLICA YO Rep #:[id number] 9 : 1955 68 From: Roman Mckeon MD PCP: Dr. Daron Benton MD Status:ADM IN Location: [facility] [id number] HPI - General General Date of Admission: [...] to a monitored bed for further management [facility] Medical History Angina pectoris Bilateral carotid [...] Nausea/Vom/ Verified 11/26/23 12:47 Diarrhea aspirin AdvReac "I'M ON Verified 11/26/23 12:47 BLOOD THINNERS" codeine AdvReac Nausea Verified 11/26/23 12:47 Corticosteroids AdvReac Upset Verified 11/26/23 12:47 (Glucocorticoids) Stomach morphine AdvReac Nausea Verified 11/26/23 12:47 Qbmrjvs-TUM-EfD Reductase AdvReac Nausea Verified 11/26/23 12:47 Inhibitor [Bqgethx-Mtf-Clk Reductase Inhibitor] Family History Mother Cancer CAD [...] % (Auto) 56.3, Lymph % (Auto) 28.5, [place] % (Auto) 12.7 H, Eos % (Auto) [...] Clarity Clear, Urine pH 6.5, Ur Specific [place] 1.015, Urine Protein 15 H, Urine Glucose [...] 18 minutes. Charges/Coding Visit Charges Inpatient E&M: 33712 Init Hosp L3 Procedures Hospitalists Procedures: 45274 Advncd Care Plan 30 Min 12/02/23 1153 <Electronically signed by Roman Mckeon MD> Cosigner Signature (if applicable): CC: Dr. Roman Mckeon MD; Dr. Daron Benton MD~ Signed [facility] Work Phone: [facility] Work Phone: [facility] instructionsWOhio[facility] Work Phone: Hospital Discharge instructions Additional Instructions Please follow-up with your primary care doctor. If your pain gets worse you do not feel you can effectively take care of yourself at home please return to the emergency room. [facility] Work Phone: Hospital Discharge instructions Additional [...] any further concerns or worsening of symptoms [facility] Work Phone: Hospital Discharge instructions Additional Instructions Continue following up outpatient. You need to follow-up with your PCP, make them aware that you no longer taking her Eliquis. Return for any worsening symptoms. Chest x-ray was clear today.[facility] Work Phone: Hospital Discharge instructions Additional Instructions Labs and CAT scan today showed no significant changes in the past. No signs of acute stroke. Call and follow-up with your primary care physician if this is not improving you and he can discuss further imaging of your neck to see if you may have a pinched nerve.[facility] Work Phone: Hospital Discharge instructions Additional Instructions In 2019, Dr. 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 Make an appointment to see him as soon as possible to have this reevaluated.[facility] Work Phone: Hospital Discharge instructions Additional [...] you are at risk of getting internal bleeding.[facility] Work Phone: Hospital Discharge instructions Additional [...] any further concerns or worsening of symptoms. [facility] Work Phone: Hospital Discharge instructionsAdditional Instructions Please continue all of your home medications as directed by your doctor use the capsaicin and oxycodone to help control pain from the shingles and return to the ER should you have any further concernsWooOhioHealth [facility] Work Phone: Hospital Discharge instructionsAdditional Instructions CT brain negative.[facility] Work Phone: Hospital Discharge instructionsAdditional Instructions Please change your Lasix/furosemide dose to 1 pill a day instead of 2. Please stop the telmisartan. These medications can create irritation to your kidney and it was elevated at your workup today. Please contact your beer brewer to discuss these changes and return to the ER should you have any further concerns.[facility] Work Phone: Progress note Author Kevin Friend [facility] Note Date/Time April 22, 2025 5:49p m [facility] Medical Records Department [address] [place] [address] Progress Note 04/22/25 1747 MR#: [id number] Acct: [id number] Name: ANGÉLICA YO Rep #:[id number] 8 : 1955 69 From: Kevin Friend DO PCP: Dr. Daron Benton MD Status:ADM IN Location: [facility] [id number] Progress Note Patient is doing well today. [...] for further workup Visit Charges Inpatient E&M: 39942 [facility] Hosp L3 04/22/25 3939 <Electronically signed by Kevin Gonzalez DO> Kevin Gonzalez DO Cosigner Signature (if applicable): CC: ~ Signed [facility] Work Phone: Progress note Author Kevin Gonzalez [facility] Note Date/Time June 09, 2025 5:37 pm [facility] Medical Records Department [address] [place] [address] Progress Note 06/09/251735 MR#: [id number] Acct: [id number] Name: ANGÉLICA YO Rep #:[id number] 7 : 1955 69 From: Kevin Gonzalez DO PCP: Dr. Daron Benton MD Status:ADM IN Location: [place] [address] Progress Note Patient has not had any [...] outpatient capsule endoscopy. Visit Charges Inpatient E&M: 44053 [facility] Hosp L3 06/09/25 6033 <Electronically signed by Kevin Gonzalez DO> Kevin Gonzalez DO Cosigner Signature (if applicable): CC: ~ Signed [facility] Work Phone: Reason for referral (narrative)* Consultation (Routine) - Pending Review Specialty Diagnoses / Procedures Referred By Hillary christie Referred To Contact Ophthalmology Diagnoses Vision disturbance Procedures GA OFFICE/OUTPATIENT NEW HIGH MDM 60 MINUTES Lizz Lynn APRN - CNP [address] [address] Cecilio Gibbs MD [facility] [place] [address] Referral ID Status Reason Start Date Expiration Date Visits Requested Visits Authorized [id number] Pending Review Specialty Services Required 12/14/2023 12/13/2024 1 1 * Therapy (Routine) - Pending Review Specialty Diagnoses / Procedures Referred By Hillary christie Referred To Contact Physical Therapy Diagnoses Dizziness Imbalance Procedures GA OFFICE/OUTPATIENT NEW HIGH MDM 60 MINUTES Lizz Lynn APRN - CNP [address] [address] Referral ID Status Reason Start Date Expiration Date Visits Requested Visits Authorized [id number] Pending Review Eval and Treat 12/14/2023 06/11/2024 99 99 Scheduling Instructions Twice weekly x 4 weeks for dizziness and imbalance [facility] for referral (narrative)No reason for referral information [facility] Work Phone: Summary Purpose Family [...] No February 17, 2022 9:49pm Power of Mobile Home Laborer No February 17 9:49pm Advance Directive Response Recorded Date/ Time Advance Directives No January 18 8:11am Living Will No February 18, 2022 4:14am Power of Mobile Home Laborer No February 18 2 4:14am Advance Directive Response Recorded Date/ Time Advance Directives No January 18 8:11am Living Will No February 20, 2022 4:54pm Power of Mobile Home Laborer No February 20 2 4:54pm Advance Directive Response Recorded Date/ Time Advance Directives No January 18 7:11am Living Will No February 20, 2022 3:54pm Power of Mobile Home Laborer No February 20 3:54pm Advance Directive Response Recorded Date/ Time Advance Directives No January 18 7:11am Living Will No November 24 3 11:31pm Power of Mobile Home Laborer No November 24 023 11:31pm Advance Directive Response Recorded Date/ Time Advance Directives No January 18 8:11am Living Will No November 25 3 12:31am Power of Mobile Home Laborer No November 25 023 12:31am Advance Directive Response Recorded Date/ Time Advance Directives No January 18 8:11am Living Will No March 16, 2023 12:46pm Power of Mobile Home Laborer No March 16 12:46pm Advance Directive Response Recorded Date/ Time Advance Directives No January 18 8:11am Living Will No March 31, 2023 1 2:40pm Power of Mobile Home [employer]orer No March 31, 2023 12:40pm Advance Directive Response Recorded Date/ Time Advance Directives No January 18 8:11am Living Will No April 08, 2023 9 :22am Power of Mobile Home Laborer No April 08, 2023 9:22am Advance Directive Response Recorded Date/ Time Advance Directives No January 18 7:11am Living Will No October 05 2 023 12:50am Power of Mobile Home [employer]orer No October 05, 2023 12:50am Advance Directive Response Recorded Date/ Time Advance Directives No January 18 7:11am Living Will No November 15, 2 023 11:28am Power of Mobile Home Laborer No November 15, 2023 11:28am Advance Directive Response Recorded Date/ Time Advance Directives No January 18 7:11am Living Will No November 15, 2 023 4:24pm Power of Mobile Home Laborer No November 15, 2023 4:24pm Advance Directive Response Recorded Date/ Time Advance Directives No January 18 7:11am Living Will No November 18 023 11:47am Power of Mobile Home Laborer No November 18, 2023 11:47am Advance Directive Response Recorded Date/ Time Advance Directives No January 18 7:11am Living Will No November 18, 2 023 3:44pm Power of Mobile Home [employer]orer No November 18, 2023 3:44pm Advance Directive Response Recorded Date/ Time Advance Directives No January 18 7:11am Living Will No November 26 1:53pm Power of Mobile Home Laborer No November 26 024 1:53pm Advance Directive Response Recorded Date/ Time Advance Directives No January 18 7:11am Living Will No November 27 9:06am Power of Mobile Home Laborer No November 27 024 9:06am Advance Directive Response Recorded Date/ Time Advance Directives No January 18 7:11am Living Will No December 02 6:38am Power of Mobile Home [employer]orer No December 02, 2023 6:38am Advance Directive Response Recorded Date/ Time Advance Directives No January 18 7:11am Living Will No December 02 12:37pm Power of Mobile Home Laborer No December 02, 2023 12:37pm Advance Directive Response Recorded Date/ Time Advance Directives No January 18 7:11am Living Will No January 18, 2024 10:25am Power of Mobile Home [employer]orer No January 17 10:25am Advance Directive Response Recorded Date/ Time Advance Directives No January 18 8:11am Living Will No February 19, 2024 10:57am Power of Mobile Home [employer]orer No February 18 10:57am Advance Directive Response Recorded Date/ Time Advance Directives No January 18 8:11am Living Will No February 19, 2024 5:33pm Power of Mobile Home Laborer No February 18 5:33pm Advance Directive Response Recorded Date/ Time Living Will No December 17 11:30am Do you have a Healthcare Power of Mobile Home Laborer? No December 17, 2024 11:30am Do you have a Healthcare Power of Mobile Home Laborer? No April 02, 2025 7:26pm Living Will No December 09 3:59pm Do you have a Healthcare Power of Mobile Home Laborer? No December 09, 2024 3:59pm Living Will No January 11, 2 025 2:51am Do you have a Healthcare Power of Mobile Home Laborer? No January 11, 2025 2:51am Advance Directives No January 18 8:11am Advance Directive Response Recorded Date/ Time Do you have a Healthcare Power of Mobile Home Laborer? No April 02, 2025 7:26pm Do you have a Healthcare Power of Mobile Home Laborer? No April 11, 2025 1:19pm Living Will No January 11, 2 025 2:51am Do you have a Healthcare Power of Mobile Home Laborer? No January 11, 2025 2:51am Do you have a Healthcare Power of Mobile Home Laborer? No April 17, 2025 10:20pm Advance Directives No January 18 8:11am Advance Directive Response Recorded Date/ Time Do you have a Healthcare Power of Mobile Home Laborer? No April 02, 2025 7:26pm Do you have a Healthcare Power of Mobile Home Laborer? No April 11, 2025 1:19pm Do you have a Healthcare Power of Mobile Home Laborer? No April 18, 2025 6:43pm Living Will No January 11 025 2:51am Do you have a Healthcare Power of Mobile Home Laborer? No January 11, 2025 2:51am Do you have a Healthcare Power of Mobile Home Laborer? No April 17, 2025 10:20pm Advance Directives No January 18 8:11am Advance Directive Response Recorded Date/ Time Do you have a Healthcare Power of Mobile Home Laborer? No April 02, 2025 7:26pm Do you have a Healthcare Power of Mobile Home Laborer? No April 11, 2025 1:19pm Do you have a Healthcare Power of Mobile Home Laborer? No April 18, 2025 9:53pm Living Will No January 11 025 2:51am Do you have a Healthcare Power of Mobile Home Laborer? No January 11, 2025 2:51am Do you have a Healthcare Power of Mobile Home Laborer? No April 17, 2025 10:20pm Advance Directives No January 18 8:11am Advance Directive Response Recorded Date/ Time Do you have a Healthcare Power of Mobile Home Laborer? No April 02, 2025 7:26pm Do you have a Healthcare Power of Mobile Home Laborer? No April 11, 2025 1:19pm Do you have a Healthcare Power of Mobile Home Laborer? No April 18, 2025 9:53pm Do you have a Healthcare Power of Mobile Home Laborer? No April 17, 2025 10:20pm Advance Directives No January 18 8:11am Advance Directive Response Recorded Date/ Time Do you have a Healthcare Power of Mobile Home Laborer? No April 02, 2025 7:26pm Do you have a Healthcare Power of Mobile Home Laborer? No April 11, 2025 1:19pm Do you have a Healthcare Power of Mobile Home Laborer? No April 18, 2025 9:53pm Do you have a Healthcare Power of Mobile Home Laborer? No May 19, 2025 10:27pm Do you have a Healthcare Power of Mobile Home Laborer? No April 17, 2025 10:20pm Advance Directives No January 18 8:11am Advance Directive Response Recorded Date/ Time Do you have a Healthcare Power of Mobile Home Laborer? No April 02, 2025 7:26pm Do you have a Healthcare Power of Mobile Home Laborer? No April 11, 2025 1:19pm Do you have a Healthcare Power of Mobile Home Laborer? No April 18, 2025 9:53pm Do you have a Healthcare Power of Mobile Home Laborer? No May 19, 2025 10:27pm Do you have a Healthcare Power of Mobile Home Laborer? No April 17, 2025 10:20pm Do you have a Healthcare Power of Mobile Home Laborer? No June 03, 2025 2:30am Advance Directives No January 18 8:11am Advance Directive Response Recorded Date/ Time Do you have a Healthcare Power of Mobile Home Laborer? No April 02, 2025 7:26pm Do you have a Healthcare Power of Mobile Home Laborer? No April 11, 2025 1:19pm Do you have a Healthcare Power of Mobile Home Laborer? No April 18, 2025 9:53pm Do you have a Healthcare Power of Mobile Home Laborer? No May 19, 2025 10:27pm Do you have a Healthcare Power of Mobile Home Laborer? No April 17, 2025 10:20pm Do you have a Healthcare Power of Mobile Home Laborer? No June 03, 2025 8:49am Advance Directives No January 18 8:11am Advance Directive Response Recorded Date/ Time Do you have a Healthcare Power of Mobile Home Laborer? No April 02, 2025 7:26pm Do you have a Healthcare Power of Mobile Home Laborer? No April 11, 2025 1:19pm Do you have a Healthcare Power of Mobile Home Laborer? No April 18, 2025 9:53pm Do you have a Healthcare Power of Mobile Home Laborer? No May 19, 2025 10:27pm Do you have a Healthcare Power of Mobile Home Laborer? No July 05, 2025 8:52pm Do you have a Healthcare Power of Mobile Home Laborer? No April 17, 2025 10:20pm Do you have a Healthcare Power of Mobile Home Laborer? No June 03, 2025 8:49am Advance Directives No January 18 8:11am Advance Directive Response Recorded Date/ Time Do you have a Healthcare Power of Mobile Home Laborer? No April 02, 2025 7:26pm Do you have a Healthcare Power of Mobile Home Laborer? No April 11, 2025 1:19pm Do you have a Healthcare Power of Mobile Home Laborer? No April 18, 2025 9:53pm Do you have a Healthcare Power of Mobile Home Laborer? No May 19, 2025 10:27pm Do you have a Healthcare Power of Mobile Home Laborer? No July 05, 2025 8:52pm Do you have a Healthcare Power of Mobile Home Laborer? No July 22, 2025 11:31pm Do you have a Healthcare Power of Mobile Home Laborer? No April 17, 2025 10:20pm Do you have a Healthcare Power of Mobile Home Laborer? No June 03, 2025 8:49am Advance Directives No January 18 8:11am Advance Directive Response Recorded Date/ Time Do you have a Healthcare Power of Mobile Home Laborer? No April 11, 2025 1:19pm Do you have a Healthcare Power of Mobile Home Laborer? No April 18, 2025 9:53pm Do you have a Healthcare Power of Mobile Home Laborer? No May 19, 2025 10:27pm Do you have a Healthcare Power of Mobile Home Laborer? No July 05, 2025 8:52pm Do you have a Healthcare Power of Mobile Home Laborer? No July 22, 2025 11:31pm Do you have a Healthcare Power of Mobile Home Laborer? No July 31, 2025 9:02pm Do you have a Healthcare Power of Mobile Home Laborer? No April 17, 2025 10:20pm Do you have a Healthcare Power of Mobile Home Laborer? No June 03, 2025 8:49am Advance Directives No January 18 8:11am Advance Directive Response Recorded Date/ Time Do you have a Healthcare Power of Mobile Home Laborer? No April 11, 2025 1:19pm Do you have a Healthcare Power of Mobile Home Laborer? No April 18, 2025 9:53pm Do you have a Healthcare Power of Mobile Home Laborer? No May 19, 2025 10:27pm Do you have a Healthcare Power of Mobile Home Laborer? No July 05, 2025 8:52pm Do you have a Healthcare Power of Mobile Home Laborer? No July 22, 2025 11:31pm Do you have a Healthcare Power of Mobile Home Laborer? No July 31, 2025 9:02pm Do you have a Healthcare Power of Mobile Home Laborer? No April 17, 2025 10:20pm Do you have a Healthcare Power of Mobile Home Laborer? No June 03, 2025 8:49am Do you have a Healthcare Power of Mobile Home Laborer? No August 05, 2025 8:54pm Advance Directives No January 18 8:11am Advance Directive Response Recorded Date/ Time Do you have a Healthcare Pow er of Mobile Home Laborer? No April 18, 2025 9:53pm Do you have a Healthcare Pow er of Mobile Home Laborer? No May 19, 2025 10:27pm Do you have a Healthcare Pow er of Mobile Home Laborer? No July 05, 2025 8:52pm Do you have a Healthcare Pow er of Mobile Home Laborer? No July 22, 2025 11:31pm Do you have a Healthcare Pow er of Mobile Home Laborer? No July 31, 2025 9:02pm Do you have a Healthcare Pow er of Mobile Home Laborer? No June 03, 2025 8:49am Do you have a Healthcare Pow er of Mobile Home Laborer? No August 05, 2025 8:54pm Do you have a Healthcare Pow er of Mobile Home Laborer? Yes August 09, 2025 12:37am Name of Medical Power of Mobile Home Laborer Bhavik amos August 09, 2025 12:37am Advance Directives No January 18 8:11am Advance Directive Response Recorded Date/ Time Do you have a Healthcare Pow er of Mobile Home Laborer? No July 05, 2025 7:52pm Do you have a Healthcare Pow er of Mobile Home Laborer? No July 22, 2025 10:31pm Do you have a Healthcare Pow er of Mobile Home Laborer? No July 31, 2025 8:02pm Do you have a Healthcare Pow er of Mobile Home Laborer? Yes September 18, 2025 10:50pm Do you have a Healthcare Pow er of Mobile Home Laborer? No June 03, 2025 7:49am Do you have a Healthcare Pow er of Mobile Home Laborer? No August 05, 2025 7:54pm Do you have a Healthcare Pow er of Mobile Home Laborer? Yes August 08, 2025 11:37pm Name of Medical Power of Mobile Home Laborer Bhavik amos August 08, 2025 11:37pm Advance Directives No January 18 7:11am Chief Complaint and Reason for Visit Chief [...] Weakness Weakness Weakness Weakness Weakness Weakness S/P [facility] 11/21/23 DIZZINESS,IMBALANCE/RX HERE fall Reason for [...] Weakness Weakness Weakness Weakness Weakness Weakness S/P [facility] 11/21/23 DIZZINESS,IMBALANCE/RX HERE fall FALL, HEAD [...] Weakness Weakness Weakness Weakness Weakness Weakness S/P [facility] 11/21/23 DIZZINESS,IMBALANCE/RX HERE fall FALL, HEAD [...] Weakness Weakness Weakness Weakness Weakness Weakness S/P [facility] 11/21/23 DIZZINESS,IMBALANCE/RX HERE fall FALL, HEAD [...] Weakness Weakness Weakness Weakness Weakness Weakness S/P [facility] 11/21/23 DIZZINESS,IMBALANCE/RX HERE fall FALL, HEAD [...] pain December 17, 2024 1 0:12am S/P [facility] 12/11December 19, 2024 1 :16pm 3 [...] 1 :16pm Bilateral carotid artery stenosis Novbrucer josé miguel 2024 1:16pm Essential (primary) hypertension December 19, 2024 1:16pm PAF (paroxysmal atrial fibrillation) Gerald zavala 2024 1:16pm Peripheral vascular occlusive disease Javan goyal 2024 1:16pm 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 F ebruary 2024 1:52pm Hypoxemia December 24, 2024 1 :52pm Emphysema of lung December 24, 2024 1 :52pm Nicotine dependence, cigarettes, uncompl icated December 24, 2024 1:52pm Smoking greater than 30 pack years Febru vince 2024 1:52pm Atherosclerotic heart diseas e of [place] coronary artery without angina pectoris January 10, [...] 2024 1:14pm Chief Complaint Admit Date S/P [facility] 12/11December 19, 2024 1 :16pm 3 [...] 2024 1:16pm PAF (paroxysmal atrial fibrillation) Gerald lucas 2024 1:16pm Peripheral vascular occlusive disease Ja jay jay 2024 1:16pm Jfxwp-2-rpjsrmpwqrc deficiency carrier F ebruary 2024 1:52pm Hypoxemia December 24, 2024 1 :52pm Emphysema of lung December 24, 2024 1 :52pm Nicotine dependence, cigarettes, uncompl icated December 24, 2024 1:52pm Smoking greater than 30 pack years u 2024 1:52pm Atherosclerotic heart diseas e of [place] coronary artery without angina pectoris January 10, [...] greater than 30 pack years Febru [email or web address] 11:45pm Mitral stenosis February 20, 2025 1:14 pm NSTEMI (non-ST elevated myocardial infar ction) February 20, 2025 1:14pm Bilateral carotid artery stenosis February 20, 2025 1:14pm Essential (primary) hypertension February 202024 1:14pm PAF (paroxysmal atrial fibrillation) Apr 2024 1:14pm Peripheral vascular occlusive disease Ap ril 2024 1:14pm Chief Complaint Admit Date S/P [facility] 12/11December 19, 2024 1 :16pm 3 [...] 2024 1:16pm PAF (paroxysmal atrial fibrillation) Gerald brucelynn 2024 1:16pm Peripheral vascular occlusive disease Ja jaredary 2024 1:16pm Ntjfs-3-cwymczpsxlo deficiency carrier F ebruary 2024 1:52pm Hypoxemia December 24, 2024 1 :52pm Emphysema of lung December 24, 2024 1 :52pm Nicotine dependence, cigarettes, uncompl icated December 24, 2024 1:52pm Smoking greater than 30 pack years 2024 1:52pm Atherosclerotic heart diseas e of [place] coronary artery without angina pectoris January 10, [...] 12:30 pm Reason for Visit Admit Date Kedmj-9-zjmqrhxsgvg deficiency carrier F ebruary 2024 1:52pm Hypoxemia December 24, 2024 1 :52pm Emphysema of lung December 24, 2024 1 :52pm Nicotine dependence, cigarettes, uncompl icated December 24, 2024 1:52pm Smoking greater than 30 pack years 2024 1:52pm Atherosclerotic heart diseas e of [place] coronary artery without angina pectoris January 10, [...] Admit Date Atherosclerotic heart diseas e of [place] coronary artery without angina pectoris January 10, [...] m Chief Complaint Admit Date 3 M February 20, 2025 1:14 pm MITRAL STENOSIS [...] February 202024 1:14pm PAF (paroxysmal atrial fibrillation) Feb 1:14pm Peripheral vascular occlusive disease Ap ril [...] chest pain July 31, 2025 9:02pm S/P [facility] 07/23August 05, 2025 12:46pm Reason for [...] chest pain July 31, 2025 9:02pm S/P [facility] 07/23August 05, 2025 12:46pm chest pain August 05, 2025 8:53pm Chief Complaint Admit Date SYMPTOMATIC ANEMIA April 18, 2025 9:20p m SYMPTOMATIC ANEMIA April 21, 2025 12:41 [...] chest pain July 31, 2025 9:02pm S/P WC 9/4 August 05, 2025 12:46pm chest pain August 05, 2025 8:53pm ENCEPHALOPATHY, FALL, CHRISTOPHER July 11:34pm ENCEPHALOPATHY, FALL, CHRISTOPHER July 3:27pm ENCEPHALOPATHY, FALL, CHRISTOPHER July 8:29am ENCEPHALOPATHY, FALL, CHRISTOPHER July 6:13pm ENCEPHALOPATHY, FALL, CHRISTOPHER July 1:43pm Reason for Visit Admit Date Acute on [...] Symptomatic anemia June 03, 2025 7:37 am Essential hypertension August 05, 2 025 12:46pm Mitral stenosis August 05, 2025 12:46pm Paroxysmal atrial fibrillation August 05, 2025 12:46pm Bilateral carotid artery stenosis Septem 2024 12:46pm HLD (hyperlipidemia) August 05 12:46pm 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 August 05, 2025 12:46pm Chest pressure August 05, 2025 12:46pm Closed head injury August 08, 2025 11:34pm Fall August 08, 2025 11:34pm CHRISTOPHER (acute kidney injury) July 11:34pm Altered mental status August 08 11:34pm Dehydration August 08, 2025 11:34pm Nausea and vomiting August 08, 2025 11:34pm Head injury August 08, 2025 11:34pm Chief Complaint Admit Date ANEMIA June 03, 2025 7:37 am Anemia [...] 12:46pm chest pain August 05, 2025 8:53pm ENCEPHALOPATHY, FALL, CHRISTOPHER July 11:34pm ENCEPHALOPATHY, FALL, CHRISTOPHER July 3:27pm ENCEPHALOPATHY, FALL, CHRISTOPHER July 8:29am ENCEPHALOPATHY, FALL, CHRISTOPHER July 6:13pm CP August 12, 2025 4:53am ENCEPHALOPATHY, FALL, CHRISTOPHER July 1:43pm fall September 18, 2025 1 1:48pm Occlusion and stenosis of bilateral wilkinson tid arteri September 21, 2025 6:24am Reason for Visit Admit Date Anemia June 03, 2025 7:37 am DDD (degenerative disc disease), lumbosa cral June 03, 2025 7:37am Congestive heart failure June 03, 2025 7:37am Symptomatic anemia June 03, 2025 7:37 am Essential hypertension August 05, 2 025 12:46pm Mitral stenosis August 05, 2025 12:46pm Paroxysmal atrial fibrillation August 05, 2025 12:46pm Bilateral carotid artery stenosis Septem 2024 12:46pm HLD (hyperlipidemia) August 05 12:46pm 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 August 05, 2025 12:46pm Chest pressure August 05, 2025 12:46pm Closed head injury August 08, 2025 11:34pm Fall August 08, 2025 11:34pm CHRISTOPHER (acute kidney injury) July 11:34pm Altered mental status August 08 11:34pm Dehydration August 08, 2025 11:34pm Nausea and vomiting August 08, 2025 11:34pm Head injury August 08, 2025 11:34pm Reason for Referral Specialty Diagnoses / Procedures Referred By Contac t Referred To Contact Cardiology Diagnoses Other specified symptoms and signs involving the circulatory and respiratory systems Cerebrovascular disease, unspecified Procedures Vascular US carotid artery duplex bilateral Kristopher Main MD [address] [place] [address] Referral ID Status Reason Start Date Expiration Date Visits Requested Visits Authorized [id number] Pending Review Perform Procedure 2 03/02/2023 1 1 Additional Source Comments INFORMATION SOURCE (unrecogn ized section and content) DATE CREATED AUTHOR 05/13/2018 [facility] DATE CREATED AUTHOR AUTHOR'S ORGANIZ ATION 05/13/2018 [facility] DATE CREATED AUTHOR AUTHOR'S ORGANIZ ATION 12/13/2021 [facility] DATE CREATED AUTHOR AUTHOR'S ORGANIZ ATION 01/16/2024 [facility] ([place]) DATE CREATED AUTHOR AUTHOR'S ORGANIZ ATION 07/25/2025 [facility] DATE CREATED AUTHOR AUTHOR'S ORGANIZ ATION 10/01/2025 [facility] Goals (unrecognized section and [...] Primary Care Provider, Attending P rovider Active Make Ready Mechanic Relationship Specialty Start Date End Date Daron Benton [address] [facility] [address] [place] [address] PCP - General 06/23/20 Make Ready Mechanic Relationship Specialty Start Date End Date Daron Benton [address] [place] [address] PCP - General 06/23/20 Make Ready Mechanic Relationship Specialty Start Date End Date Daron Benton [address] [facility] [address] [place] [address] PCP - General 06/23/20 Team Status: Inactive [...] Dr. Yasmani Haynes DO Emergency Provider Active Make Ready Mechanic Relationship Specialty Start Date End Date Daron Benton [address] [facility] [address] [place] [address] PCP - General 06/23/20 Team Status: Inactive [...] Kebede MD Emergency Provider Active Dr. Sommer Resendzi MD Admit Provider, Other Provider Active Dr. [...] Other Provider Active Dr. Jorge Hurtado DO Other Provider Active Dr. Brandon Gaming MD [...] Deepika Graham MD Other Provider Active Maurilio Mindyanet , [place] Other Provider Active Phil Terry [...] Active Keyona Davidson MD Other Provider Active Make Ready Mechanic Relationship Specialty Start Date End Date Daron Benton [address] [facility] [address] [place] [id number] PCP - General 06/23/20 Team Status: Active [...] Smiley MD Attending Provider, Referring Provider Active Make Ready Mechanic Relationship Specialty Start Date End Date Daron Benton MD [address] [place], [place] [id number] PCP - General Family Medicine 03/12/19 Tye Barnett MD [address] [place] [address] Vascular Surgery 12/22/17 Make Ready Mechanic Relationship Specialty Start Date End Date Esperanza Daron Danielle [address] [facility] [address] [place] [id number] PCP - General 06/23/20 Make Ready Mechanic Relationship Specialty Start Date End Date Esperanza Daron Danielle [address] [facility] [address] [place] [address] PCP - General 06/23/20 Make Ready Mechanic Relationship Specialty Start Date End Date Esperanza Daron Danielle [address] [facility] [address] [place] [address] PCP - General 06/23/20 Make Ready Mechanic Relationship Specialty Start Date End Date Benton Daron Santos [address] [facility] [address] [place] [address] PCP - General 06/23/20 Team Status: Active [...] e Start: December 10, 2024 Dr. Kofi eWiner MD Other Provider Active Start: December 10, 2024 Dr. Neha Watson MD Other Provider Active St art: December 10, 2024 Team Status: Active Member Role Status Dates Dr. Daron Benton MD Primary Care Provider Active Start: December 10, 2024 Nuno Girder MD Emergency Provider Active Star t: December [...] April 02, 2025 End: April 02, 2025 Make Ready Mechanic Relationship Specialty Start Date End Date Daron Benton [address] [facility] [address] [place] [address] PCP - General 06/23/20 Team Status: Inactive [...] Sta rt: April 19, 2025 Dr. Sachin Muirllo MD Admit Provider Active Start: April 19, [...] May 06, 2025 End: May 06, 2025 Make Ready Mechanic Relationship Specialty Start Date End Date Daron Benton [address] [place] [phone] PCP - General 06/23/20 Team Status: Active [...] Active Member Role/Relationship Status Dates Dr. Daron Betnon MD Primary Care Provider Active Start: April [...] Provider Active Start: June 06, 2025 Dr. Romna Mckeon MD Other Provider Active Star t: [...] Start: June 08, 2025 Dr. Dex Worrell , Other Provider Active S tart: June 08, [...] Provider Active Start: June 03, 2025 Dr. Romna Mckeon MD Admit Provider Active Star t: [...] Active Start: June 04, 2025 Dr. Yasmani aHynes DO Emergency Provider Active Start: June 04, [...] Start: June 08, 2025 Dr. Yasmani Haynes , Emergency Provider Active Start: June 08, 2025 [...] 2025 End: June 12, 2025 Karen Dias [employer], [employer]-C Attending Provider Active Start: June 12, 2025 [...] 2025 End: June 10, 2025 Karen Dias [employer], [employer]-C Attending Provider Active Start: June 10, 2025 End: June 10, 2025 Team Status: Inactive Member Role/Relationship Status Dates Dr. Daron Benton MD Primary Care Provider Active Start: June 12, 2025 End: June 12, 2025 Karen Dias [employer], [employer]-C Attending Provider Active Start: June 12, 2025 [...] Active Start: April 21, 2025 Dr. Sachin Murlilo MD Referring Provider Active Start: April 21, [...] 2025 End: May 19, 2025 Dr. Yasmani aHynes DO Attending Provider Active Start: May 19, [...] End: June 10, 2025 Karen Dias NP, [employer]-C Attending Provider Active Start: June 10, 2025 End: June 10, 2025 Team Status: Inactive Member Role/Relationship Status Dates Dr. Daron Benton MD Primary Care Provider Active Start: June 12, 2025 End: June 12, 2025 Karen Dias NP, [employer]-C Attending Provider Active Start: June 12, 2025 [...] July 22, 2025 End: July 23, 2025 Make Ready Mechanic Relationship Specialty Start Date End Date Daron Benton [address] [place] [address] PCP - General 06/23/20 Team Status: Active [...] 18, 2025 Dr. Yasmani Haynes DO Attending physician Active Start: April 17, 2025 [...] End: May 06, 2025 TANYA NunezC Attending physician Active Start: May 06, 2025 [...] Practitioner Active Start: June 03, 2025 Dr. Kevni Gonzalez DO Attending physician Active Start: June [...] Status: Active Member Role/Relationship Status Dates Dr. Draon Benton MD Primary care physician Active Start: [...] End: June 10, 2025 Karen Dias NP, [employer]-C Attending physician Active Start: June 10, 2025 End: June 10, 2025 Team Status: Inactive Member Role/Relationship Status Dates Dr. Daron Benton MD Primary care physician Active Start: June 12, 2025 End: June 12, 2025 Karen Dias NP [employer]-C Attending physician Active Start: June 12, 2025 [...] 23, 2025 Dr. Ramírez Onofre MD Emergency Departmen t Physician Active Start: July 22, 2025 [...] 05, 2025 End: August 05, 2025 Betsey Lindquist PA, PA Attending physician Active Start: August 05, 2025 End: August 05, 2025 Team Status: Inactive Member Role/Relationship Status Dates Dr. Daron Benton MD Primary care physician Active Start: August 05, 2025 End: August 06, 2025 Dr. Jeffy Willoughby MD Emergency Department Physician Active Start: August 05, 2025 End: August 06, 2025 Team Status: Inactive Member Role/Relationship [...] Active Start: June 08, 2025 Dr. Dex Worerll DO Nurse Practitioner Active Start: June 08, [...] End: June 10, 2025 Karen Dias NP, [employer]-C Attending physician Active Start: June 10, 2025 End: June 10, 2025 Team Status: Inactive Member Role/Relationship Status Dates Dr. Daron Benton MD Primary care physician Active Start: June 12, 2025 End: June 12, 2025 Karen Dias NP, [employer]-C Attending physician Active Start: June 12, 2025 [...] 23, 2025 Dr. Ramírez Onofre MD Emergency Departmen t Physician Active Start: July 22, 2025 [...] 05, 2025 End: August 05, 2025 Betsey Lindquist PA, PA Attending physician Active Start: August 05, 2025 End: August 05, 2025 Team Status: Inactive Member Role/Relationship Status Dates Dr. Daron Benton MD Primary care physician Active Start: August 05, 2025 End: August 06, 2025 Dr. Jeffy Willoughby MD Attending physician Active St art: August 05, 2025 End: August 06, 2025 Dr. Jeffy Willoughby MD Emergency Department Physician Active Start: August 05, 2025 End: August 06, 2025 Team Status: Inactive Member Role/Relationship Status Dates Dr. Daron Benton MD Primary care physician Active Start: August 08, 2025 End: August 12, 2025 Dr. Yasmani Haynes , Emergency Departwy nt Physician Active Start: August 08, 2025 End: August 12, 2025 Dr. Sommer Resendiz MD Admitting physician Active Start: August 08, 2025 End: August 12, 2025 Dr. Sommer Resendiz MD Nurse Practitioner Active Start: August 08, 2025 End: August 12, 2025 Dr. Eva Mortensen DO Attending physician Active Start: August 08, 2025 End: August 12, 2025 Dr. Neha Watson MD Nurse Practitioner Active Start: August 08, 2025 End: August 12, 2025 Team Status: Active Member Role/Relationship Status Dates Dr. Daron Benton MD Primary care physician Active Start: August 09, 2025 Dr. Yasmani Haynes DO Emergency Departwy nt Physician Active Start: August 09, 2025 Dr. Sommer Resendiz MD Admitting physician Active Start: August 09, 2025 Dr. Sommer Resendiz MD Nurse Practitioner Active Start: August 09, 2025 Dr. Neha Watson MD Attending physician Active Start: August 09, 2025 Dr. Neha Watson MD Nurse Practitioner Active Start: August 09, 2025 Dr. Rojelio Badillo MD Nurse Practitioner Active Start: August 09, 2025 Team Status: Active Member Role/Relationship Status Dates Dr. Daron Benton MD Primary care physician Active Start: August 10, 2025 Dr. Yasmani Haynes DO Emergency Departme nt Physician Active Start: August 10, 2025 Dr. Sommer Resendiz MD Admitting physician Active Start: August 10, 2025 Dr. Sommer Resendiz MD Nurse Practitioner Active Start: August 10, 2025 Dr. Eva Mortensen DO Attending physician Active Start: August 10, 2025 Dr. Eva Mortensen DO Nurse Practitioner Active S tart: August 10, 2025 Dr. Neha Watson MD Nurse Practitioner Active Start: August 10, 2025 Team Status: Active Member Role/Relationship Status Dates Dr. Daron Benton MD Primary care physician Active Start: August 11, 2025 Dr. Yasmani Haynes , DO Emergency Departme nt Physician Active Start: August 11, 2025 Dr. Sommer Resendiz MD Admitting physician Active Start: August 11, 2025 Dr. Sommer Resendiz MD Nurse Practitioner Active Start: August 11, 2025 Dr. Eva Mortensen DO Attending physician Active Start: August 11, 2025 Dr. Eva Mortensen DO Nurse Practitioner Active S tart: August 11, 2025 Dr. Neha Watson MD Nurse Practitioner Active Start: August 11, 2025 Team Status: Active Member Role/Relationship Status Dates Dr. Daron Benton MD Primary care physician Active Start: August 12, 2025 Dr. Yasmani Haynes , DO Emergency Departme nt Physician Active Start: August 12, 2025 Dr. Sommer Resendiz MD Admitting physician Active Start: August 12, 2025 Dr. Sommer Resendiz MD Nurse Practitioner Active Start: August 12, 2025 Dr. Eva Mortensen DO Attending physician Active Start: August 12, 2025 Dr. Eva Mortensen DO Nurse Practitioner Active S tart: August 12, 2025 Dr. Neha Watson MD Nurse Practitioner Active Start: August 12, 2025 Team Status: Inactive Member Role/Relationship [...] End: June 10, 2025 Karen Dias NP, NP-C Attending physician Active Start: June 10, 2025 End: June 10, 2025 Team Status: Inactive Member Role/Relationship Status Dates Dr. Daron Benton MD Primary care physician Active Start: June 12, 2025 End: June 12, 2025 Karen Dias NP, NP-C Attending physician Active Start: June 12, 2025 [...] 23, 2025 Dr. Ramírez [facility] Active Start: July 22, 2025 [...] 05, 2025 End: August 05, 2025 Betsey Lindquist PA, PA Attending physician Active Start: August 05, 2025 End: August 05, 2025 Team Status: Inactive Member Role/Relationship Status Dates Dr. Daron Benton MD Primary care physician Active Start: August 05, 2025 End: August 06, 2025 Dr. Jeffy Willoughby MD Attending physician Active St art: August 05, 2025 End: August 06, 2025 Dr. Jeffy Willoughby MD Emergency Department Physician Active Start: August 05, 2025 End: August 06, 2025 Team Status: Inactive Member Role/Relationship Status Dates Dr. Daron Benton MD Primary care physician Active Start: August 08, 2025 End: August 12, 2025 Dr. Yasmani Haynes , Emergency Departme nt Physician Active Start: August 08, 2025 End: August 12, 2025 Dr. Sommer Resendiz MD Admitting physician Active Start: August 08, 2025 End: August 12, 2025 Dr. Sommer Resendiz MD Nurse Practitioner Active Start: August 08, 2025 End: August 12, 2025 Dr. Eva Mortensen DO Attending physician Active Start: August 08, 2025 End: August 12, 2025 Dr. Neha Watson MD Nurse Practitioner Active Start: August 08, 2025 End: August 12, 2025 Team Status: Active Member Role/Relationship Status Dates Dr. Daron Benton MD Primary care physician Active Start: August 09, 2025 Dr. Yasmani Haynes DO Emergency Departme nt Physician Active Start: August 09, 2025 Dr. Sommer Resendiz MD Admitting physician Active Start: August 09, 2025 Dr. Sommer Resendiz MD Nurse Practitioner Active Start: August 09, 2025 Dr. Neha Watson MD Attending physician Active Start: August 09, 2025 Dr. Neha Watson MD Nurse Practitioner Active Start: August 09, 2025 Dr. Rojelio Badillo MD Nurse Practitioner Active Start: August 09, 2025 Team Status: Active Member Role/Relationship Status Dates Dr. Daron Benton MD Primary care physician Active Start: August 10, 2025 Dr. Yasmani Haynes DO Emergency Departme nt Physician Active Start: August 10, 2025 Dr. Sommer Resendiz MD Admitting physician Active Start: August 10, 2025 Dr. Sommer Resendiz MD Nurse Practitioner Active Start: August 10, 2025 Dr. Eva Mortensen DO Attending physician Active Start: August 10, 2025 Dr. Eva Mortensen DO Nurse Practitioner Active S tart: August 10, 2025 Dr. Neha Watson MD Nurse Practitioner Active Start: August 10, 2025 Team Status: Active Member Role/Relationship Status Dates Dr. Daron Benton MD Primary care physician Active Start: August 11, 2025 Dr. Yasmani Haynes , DO Emergency Departme nt Physician Active Start: August 11, 2025 Dr. Sommer Resendiz MD Admitting physician Active Start: August 11, 2025 Dr. Sommer Resendiz MD Nurse Practitioner Active Start: August 11, 2025 Dr. Eva Mortensen DO Attending physician Active Start: August 11, 2025 Dr. Eva Mortensen DO Nurse Practitioner Active S tart: August 11, 2025 Dr. Neha Watson MD Nurse Practitioner Active Start: August 11, 2025 Team Status: Active Member Role/Relationship Status Dates Dr. Daron Benton MD Primary care physician Active Start: August 12, 2025 Dr. Bhavik Smiley MD Attending physician Active Start: August 12, 2025 Dr. Bhavik Smiley MD Referring Provider Active Start: August 12, 2025 Team Status: Active Member Role/Relationship Status Dates Dr. Daron Benton MD Primary care physician Active Start: August 12, 2025 Dr. Yasmani Haynes DO Emergency Departme nt Physician Active Start: August 12, 2025 Dr. Sommer Resendiz MD Admitting physician Active Start: August 12, 2025 Dr. Sommer Resendiz MD Nurse Practitioner Active Start: August 12, 2025 Dr. Eva Mortensen DO Attending physician Active Start: August 12, 2025 Dr. Eva Mortensen DO Nurse Practitioner Active S tart: August 12, 2025 Dr. Neha Watson MD Nurse Practitioner Active Start: August 12, 2025 Team Status: Inactive Member Role/Relationship Status Dates Dr. Daron Benton MD Primary care physician Active Start: September 18, 2025 End: September 19, 2025 Dr. Yasmani Haynes DO Emergency Department Physician A ctive Start: September 18, 2025 End: September 19, 2025 Team Status: Active Member Role/Relationship Status Dates Dr. Daron Benton MD Primary care physician Active Start: September 21, 2025 Dr. Tye Barnett MD Attending physician Active Start: September 21, 2025 Dr. Tye Barnett MD Referring Provider Active Start: September 21, 2025 Reason for Visit (unrecogniz ed section [...] or prosecute any alcohol or drug abuse patient.[facility] FOR RECORDS PERTAINING TO PATIENTS [...] BE BASED ON THE PRIMARY CLINICAL RECORDS. [email or web address] [facility]. provides no warranty or guarantee of the accuracy or completeness of information in this document.
--- NOTE | 2025-10-03 15:40 | RAD_ITS ---
PROCEDURE: ANKLE MIN 3 VIEWS; FOOT MIN 3 VIEWS 10/03/2025 REASON FOR EXAM: INJURY/PAIN TECHNIQUE: Procedure Code: RADANK; RADFO Modality: DX Procedure: ANKLE MIN 3 VIEWS; FOOT MIN 3 VIEWS Laterality: Left COMPARISON: None available. FINDINGS: Bones: No acute fractures. Joints: Normal alignment. Mortise appears intact. No effusion. Soft tissues: Soft tissues are unremarkable. RAD/Ankle min 3 Views IMPRESSION: NO ACUTE FRACTURE OR DISLOCATION. Reading Location: [facility]
[2025-10-03 16:48] VITALS: PULSE 76; RESP 18; O2SAT 95
[2025-10-03 17:58] VITALS: BP 147/69; PULSE 76; RESP 16; TEMP 36.6; O2SAT 100
== END 2025-10-03 17:59 | disposition home or self-care (01) ==
PROVIDERS: Emergency Provider Emergency Medicine; PCP Family Medicine; Visit Provider Emergency Medicine
DX: S93.602A Unspecified sprain of left foot, initial encounter (principal); W22.03XA Walked into furniture, initial encounter; I10 Essential (primary) hypertension; F17.210 Nicotine dependence, cigarettes, uncomplicated; Z79.899 Other long term (current) drug therapy
CPT/HCPCS: 73610; 73630; 99283

== ENCOUNTER → 2025-10-07 | Outpatient (CLI) | payer MEDICARE, MEDICAID, SELFPAY ==
--- NOTE | 2025-10-07 13:36 | CT_ITS ---
PROCEDURE: LOW DOSE CT LUNG SCREENING 10/07/2025 REASON FOR EXAM: CURRENT SMOKER, GREATER THAN 30 PACK YEARS TECHNIQUE: Procedure Code: [id number] Modality: CT Procedure: LOW DOSE CT LUNG SCREENING Coronal and Sagittal reconstruction series were provided. One or more dose reduction techniques were used (e.g., Automated exposure control, adjustment of the mA and/or kV according to patient size, use of iterative reconstruction technique). REFERENCE LINK: [facility] Lung-RADS RADIATION DOSE SUMMARY: CTDlvol: 2.01 mGy DLP: 78.51 mGycm COMPARISON: Prior study dated June 07, 2025. FINDINGS: PULMONARY NODULES: (Only nodules >3mm are reported) Nodules described below are on series 1 unless otherwise specified. Pulmonary Nodules: No suspicious pulmonary nodule seen. Hardware:None Lymph Nodes:Small benign-appearing mediastinal lymph nodes. Heart and Vasculature:There is nonenlargedAtherosclerotic calcifications of the thoracic aorta. Thoracic aorta and pulmonary arteries have normal contours; noncontrast technique limits evaluation. Coronary Artery Calcifications: Present Lungs and Airways: Hyperinflation. Linear scarring and mild bronchiectasis in the posterior inferior aspect of the right middle lobe. Mild scarring at the left lung base. The previously seen effusions and infiltrates have resolved. Pleura:No pleural effusion. Upper Abdomen:Unremarkable Bones:Degenerative changes of the thoracic spine. CT/Low Dose CT Lung Screening IMPRESSION: No suspicious pulmonary nodule seen. The previously seen bilateral effusions r ight greater than left and patchy bibasilar infiltrates have resolved. Residual scarring as described. Coronary artery calcification (CAC) is is present Lung-RADS Category: 2 BENIGN (BASED ON IMAGING FEATURES OR INDOLENT BEHAVIOR). RECOMMEND 12-MONTH SCREENING LDCT. Other Significant Findings: Reading Location: [facility]
== END | disposition home or self-care (01) ==
LOC: CT 13:35
PROVIDERS: PCP Family Medicine; Referring Provider Nurse Practitioner Family; Visit Provider Nurse Practitioner Family
DX: Z12.2 Encounter for screening for malignant neoplasm of respiratory organs (principal); F17.210 Nicotine dependence, cigarettes, uncomplicated
CPT/HCPCS: 71271